=== PATIENT | male | born 1950 | race Caucasian/White ===

== ENCOUNTER 2019-05-08 13:37 | Emergency (ER) | payer OTHER ==
[2019-05-08 14:07] VITALS: BP 128/66; PULSE 83; TEMP 98.6; BMI 24.2
--- NOTE | 2019-05-08 15:18 | PDOC ---
History of Present Illness - General Chief Complaint: G Tube Problem Stated Complaint: G TUBE Time Seen by Provider: 05/08/19 14:28 - History of Present Illness Initial Comments: 05/08/19 15:20 68 years old with past medical history significant for cerebral palsy severe intellectual disabilities Parkinson's disease COPD presents to the emergency department for J G-tube evaluation at care home tube was flushing but unable to withdraw no other complaints per staff Past History - Past Medical History Allergies/Adverse Reactions: Allergies Allergy/AdvReac Type Severity Reaction Status Date / Time No Known Allergies Allergy Verified 05/08/19 14:04 COPD: Yes (resp failure) Other medical history: cerebal palsy, - Psycho Social/Smoking Cessation Hx Smoking History: Unknown if ever smoked Review of Systems - Review of Systems Comments:: 05/08/19 15:21 Unable to obtain review of systems *Physical Exam - Vital Signs Last Vital Signs Temp Pulse Resp BP Pulse Ox 98.6 F 83 13 128/66 98 05/08/19 14:04 05/08/19 14:04 05/08/19 14:23 05/08/19 14:04 05/08/19 14:04 - Physical Exam 05/08/19 15:21 Vitals: Triage Vital signs reviewed General Appearance: No acute distress, well nourished well developed, Cardiac: Regular rate and rhythym, no murmurs, no rubs, no gallops, Lungs: Clear to auscultation bilateral, good air movement bilaterally, Abdomen: Soft, non distended, normal bowel sounds, non tender to palpation G- tube/J-tube in place no surrounding cellulitis able to flush Extremities: Full range of motion to all extremities, no cyanosis, clubbing, or edema Skin: Warm and dry, no rashes or lesions, no rash, no petechiae Psych: Normal mood, normal affect Medical Decision Making - Medical Decision Making 05/08/19 15:22 History limited by severe intellectual disability sent for evaluation of GJ tube We will evaluate with x-ray with Gastrografin observe and reassess Gastrografin in correct location findings discussed with Dr. Thomas will discharge back to the DR Discharge - Discharge Information Problems reviewed: Yes Clinical Impression/Diagnosis: G tube feedings Condition: Fair Disposition: TRANSFER ACUTE CARE/OTHER HOSP - Admission No - Follow up/Referral Referrals: Nicola Gomez MD [Primary Care Provider] - - Patient Discharge Instructions Patient Printed Discharge Instructions: How to Care for Your PEG Tube Additional Instructions: Top tube is G-tube bottom tube and J-tube both are flushing adequately J-tube does require occasional repositioning see x-rays Return to ED for any concerns. - Post Discharge Activity
== END 2019-05-08 17:20 | disposition short-term general hospital (02) ==
LOC: JER 13:37
DX: Z43.1 Encounter for attention to gastrostomy (principal); G20 Parkinson's disease; G80.9 Cerebral palsy, unspecified; F79 Unspecified intellectual disabilities; J44.9 Chronic obstructive pulmonary disease, unspecified
CPT/HCPCS: 74018-TC-FY; 99281-25

== ENCOUNTER 2019-05-20 03:31 | Inpatient (IN) | payer OTHER ==
--- NOTE | 2019-05-20 03:50 | PDOC ---
History of Present Illness - General Chief Complaint: G Tube Problem Stated Complaint: FEEDING TUBE DISPLACEMENT - History of Present Illness Initial Comments: 05/20/19 03:50 Mr. Bernal is a 68 yo male w/ pmh of cerebral palsy, intellectual disabilities, Parkinson's disease, permanent trach, and COPD who presents for evaluation of j-tube dysfunction earlier this evening. Patient unable to contribute to history further. Past History - Past Medical History Allergies/Adverse Reactions: Allergies Allergy/AdvReac Type Severity Reaction Status Date / Time No Known Allergies Allergy Verified 05/20/19 03:42 COPD: Yes (resp failure) - Psycho Social/Smoking Cessation Hx Smoking History: Never smoked Hx Alcohol Use: No Drug/Substance Use Hx: No Review of Systems - Review of Systems Comments:: 05/20/19 03:51 Unable to obtain further. *Physical Exam - Vital Signs Last Vital Signs Temp Pulse Resp BP Pulse Ox 98.1 F 88 18 116/84 98 05/20/19 03:37 05/20/19 03:37 05/20/19 03:41 05/20/19 03:37 05/20/19 03:37 - Physical Exam 05/20/19 03:52 GENERAL: Awake, oriented to baseline, in no acute distress HEAD: No signs of trauma, normocephalic, atraumatic EYES: PERRLA, EOMI, sclera anicteric, conjunctiva clear ENT: Auricles normal inspection, hearing grossly normal, nares patent, oropharynx clear without exudates. Moist mucosa NECK: Normal ROM, supple, no lymphadenopathy, JVD, or masses LUNGS: No distress, speaks full sentences, clear to auscultation bilaterally HEART: Regular rate and rhythm, normal S1 and S2, no murmurs, rubs or gallops, peripheral pulses normal and equal bilaterally. ABDOMEN: +J-tube internal plug out of place. G-tube in place. Soft, nontender, normoactive bowel sounds. No guarding, no rebound. No masses EXTREMITIES: Normal inspection, Normal range of motion, no edema. No clubbing or cyanosis. NEUROLOGICAL: +Unable to assess further. SKIN: Warm, Dry, normal turgor, no rashes or lesions noted. ED Treatment Course - LABORATORY CBC & Chemistry Diagram: 05/20/19 04:15 05/20/19 04:15 Medical Decision Making - Medical Decision Making 05/20/19 04:37 Mr. Bernal is a 68 yo male w/ pmh as described who presents for evaluation of j-tube dysfunction. Patient otherwise in usual state of health. Attempted to contact [place] for additional information regarding presentation however no answer. Patient will be admitted for GI consult as tube has become dislodged and is not easily replaceable in ED. Discharge - Discharge Information Problems reviewed: Yes Clinical Impression/Diagnosis: Dislodged jejunostomy tube Condition: Fair - Admission Yes - Follow up/Referral Referrals: Nicola Gomez MD [Primary Care Provider] - - Patient Discharge Instructions - Post Discharge Activity
--- NOTE | 2019-05-20 03:56 | PDOC ---
Attending Attestation - Resident Resident Name: Marianojose gCesar connell - ED Attending Attestation I have performed the following: I have examined & evaluated the patient, The case was reviewed & discussed with the resident, I agree w/resident's findings & plan - HPI HPI: 05/20/19 03:53 see resident hpi - Physicial Exam PE: 05/20/19 03:53 agree with resident exam - Medical Decision Making 05/20/19 03:55 68-year-old male for evaluation of dislodged G-tube G-tube inner lumen still in place, stopper has been removed Second lumen has drainage to gravity, bag contains bilious material Plan for admission to hospital for evaluation and tube replacement
[2019-05-20 04:52] LABS: EOS % 1.2 % (0-4.5); MONO % 3.6 % (3.8-10.2)
[2019-05-20 04:56] LABS: BASO % 0.9 % (0-2.0); HEMATOCRIT 28.3 % (35.4-49); HEMOGLOBIN 9.4 GM/dL (11.7-16.9); LYMPH % 21.2 % (8-40); MCH 31.2 pg (25.7-33.7); MCHC 33.3 g/dl (32.0-35.9); MEAN CELL VOLUME 93.6 fl (80-96); MEAN PLT VOLUME 8.6 fl (7.5-11.1); NEUT % 73.1 % (42.8-82.8); PLATELET COUNT 372 K/MM3 (134-434); RBC 3.03 M/mm3 (4.00-5.60); RDW 17.1 % (11.9-15.9); WHITE BLOOD COUNT 9.3 K/mm3 (4.0-10.0)
[2019-05-20 05:11] LABS: ALBUMIN 2.5 g/dl (3.4-5.0); BILIRUBIN,TOTAL 0.3 mg/dL (0.2-1); BLOOD UREA NITROGEN 28.7 mg/dL (7-18); CALCIUM 9.4 mg/dL (8.5-10.1); CREATININE 1.2 mg/dL (0.55-1.3); POTASSIUM 4.4 mmol/L (3.5-5.1)
[2019-05-20] MEDS ORDERED: DEXTROSE 5%-0.45% SALINE 1,000 ML IV SCH (05:30)
[2019-05-20 05:34] LABS: PLATELET ESTIMATE ADEQUATE
--- NOTE | 2019-05-20 05:38 | HP ---
Admitting History and Physical - Primary Care Physician PCP: Nicola Gomez - Admission Chief Complaint: J- Tube Dislodgement History of Present Illness: This is a 68 [address] from [facility] with a PMHx of Cerebral Palsy, Intellectual Disabilities, Parkinson's Disease, Chronic Respiratory Failure s/p Trach- vent dependent, COPD. Who presents to the ED for evaluation of G-tube dysfunction earlier this evening. Patient has CP, MR unable to contribute to history further. 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, MR) Pulmonary: Yes: COPD, O2 Dependent (trach- vent dependent) - Past Surgical History Additional Past Surgical History: Tracheostomy - Smoking History Smoking history: Never smoked - Alcohol/Substance Use Hx Alcohol Use: No History of Substance Use: reports: None - Social History Usual Living Arrangement: Yes: [facility] ADL: Support Services History of Recent Travel: No Home Medications - Allergies Allergies/Adverse Reactions: Allergies Allergy/AdvReac Type Severity Reaction Status Date / Time No Known Allergies Allergy Verified 05/20/19 03:42 - Home Medications Home Medications: Ambulatory Orders Acetaminophen 650 mg GT Q6H 05/20/19 Budesonide [Pulmicort 0.25 mg -] 1 neb IH BID 05/20/19 Ciclopirox/Urea/Camph/Men/Euc [Ciclopirox 8% Treatment Kit] 34.6 ml TP Q12H 09/01 Cinacalcet HCl [Sensipar -] 60 mg GT DAILY 05/20/19 Clorazepate Dipotassium 3.75 mg GT HS 05/20/19 Dextrose 5 % in Water [Dextrose 5%-Water 50 ml] 50 ml IV DAILY 05/20/19 Heparin - 5,000 unit SQ BID 05/20/19 Ipratropium/Albuterol Sulfate [Iprat-Albut 0.5-3(2.5) mg/3 ml] 3 ml IH QID 05/20 Lamotrigine [Lamictal -] 50 mg GT BID 05/20/19 Metoprolol Tartrate [Lopressor -] 25 mg GT BID 05/20/19 Omeprazole Pediatric Solution [Omeprazole Pediatric Oral Solution] 20 ml GT DAILY 05/20/19 Prednisone 10 mg GT DAILY 02/05/20 Sod Phos Di, [place]/K Phos [place] [Phospha 250 Neutral Tablet] 250 mg GT BID Family Medical History Family History: Unable to Obtain Review of Systems Unable to obtain ROS, reason: Clinical Condition Physical Examination Vital Signs: Vital Signs Temperature 98.1 F 05/20/19 03:37 Pulse Rate 88 05/20/19 03:37 Respiratory Rate 18 05/20/19 03:41 Blood Pressure 116/84 05/20/19 03:37 O2 Sat by Pulse Oximetry (%) 98 05/20/19 03:37 Constitutional: Yes: No Distress, Calm Eyes: Yes: Conjunctiva Clear, PERRL HENT: Yes: Other (Macrocephaly Cauliflower deformities- b/l ears) Neck: Yes: Supple, Other (trach- vent) Cardiovascular: Yes: Regular Rate and Rhythm, S1, S2 Respiratory: Yes: Diminished, Other (trach-vent dependent) Gastrointestinal: Yes: Soft, Other (J-tube noted DSD to abd) ...Rectal Exam: Yes: Deferred Renal/: Yes: Incontinence Breast(s): Yes: WNL Musculoskeletal: Yes: WNL Extremities: Yes: Other (contractures b/l LE) Edema: No Peripheral Pulses WNL: Yes Wound/Incision: Yes: Dressing Dry and Intact Neurological: Yes: Alert (non-verbal- baseline), Pre-Existing Deficit Psychiatric: Yes: Alert Labs: CBC, BMP 05/20/19 04:15 05/20/19 04:15 Laboratory Results - last 24 hr 05/20/19 05/20/19 04:15 04:15 WBC 9.3 RBC 3.03 L Hgb 9.4 L Hct 28.3 L MCV 93.6 MCH 31.2 MCHC 33.3 RDW 17.1 H Plt Count 372 MPV 8.6 Absolute Neuts (auto) 6.8 Total Counted 100 Neutrophils % 73.1 Neutrophils % (Manual) 84.0 H Band Neutrophils % 3.0 Lymphocytes % 21.2 Lymphocytes % (Manual) 9.0 Monocytes % 3.6 L Monocytes % (Manual) 3 L Eosinophils % 1.2 Eosinophils % (Manual) 1.0 Basophils % 0.9 Nucleated RBC % 0 Hypochromia 1+ Platelet Estimate Adequate Platelet Comment No clumping noted Sodium 134 L Potassium 4.4 Chloride 101 Carbon Dioxide 29 Anion Gap 4 L BUN 28.7 H Creatinine 1.2 Est GFR (CKD-EPI)AfAm 71.58 Est GFR (CKD-EPI)NonAf 61.76 Random Glucose 83 Calcium 9.4 Total Bilirubin 0.3 AST 26 ALT 44 Alkaline Phosphatase 109 Total Protein 7.0 Albumin 2.5 L Intake & Output 05/17/19 05/18/19 05/19/19 05/20/19 23:59 23:59 23:59 23:59 Output Total 200 Balance -200 Weight 51.8 kg Imaging - Results Chest X-ray: Image Reviewed Problem List - Problems (1) Dislodged gastrostomy tube Assessment/Plan: Appreciate GI consult IVF Monitor CBC, BMP DSD Code(s): Z43.1 - ENCOUNTER FOR ATTENTION TO GASTROSTOMY (2) Jejunostomy tube in situ Assessment/Plan: Assess to resume feedings and medications Swallow Eval Code(s): Z93.4 - OTHER ARTIFICIAL OPENINGS OF GASTROINTESTINAL TRACT STATUS (3) Chronic respiratory failure Assessment/Plan: s/p trach- vent dependent Continue vent settings from [place] Aspiration Precautions Monitor vitals Code(s): J96.10 - CHRONIC RESPIRATORY FAILURE, UNSP W HYPOXIA OR HYPERCAPNIA (4) COPD (chronic obstructive pulmonary disease) Assessment/Plan: trach-vent dependent Appreciate Pulm consult Continue home meds Monitor Spo2 Code(s): J44.9 - CHRONIC OBSTRUCTIVE PULMONARY DISEASE, UNSPECIFIED (5) Cerebral palsy Assessment/Plan: Will continue to monitor and treat with interventions accordingly Fall Precautions Code(s): G80.9 - CEREBRAL PALSY, UNSPECIFIED (6) Parkinson disease Assessment/Plan: stable Continue home meds when verified- J tube Code(s): G20 - PARKINSON'S DISEASE (7) Functional quadriplegia Assessment/Plan: Complete immobility due to frailty- cerebral palsy Requires total care Turn Q2h Mack lift as needed Heel Protectors Fall Precautions Code(s): R53.2 - FUNCTIONAL QUADRIPLEGIA Assessment/Plan This is a 68 y/o man from [facility] with a PMHx of Cerebral Palsy, Intellectual Disability, COPD, Chronic Respiratory Failure s/p trach- vent dependent, Parkinson's. Admitted to Med Surg vent floor for G- Tube Dislodgment, Chronic Respiratory Failure for further evaluation of their emergent condition. Plan: See Problem List FEN D5.45NS@42ml/hr Replete lytes prn NPO DVT ppx SCDs Heparin SQ Dispo: Requires Inpatient Care Visit type - Emergency Visit Emergency Visit: Yes ED Registration Date: 05/20/19 Care time: The patient presented to the Emergency Department on the above date and was hospitalized for further evaluation of their emergent condition. - New Patient This patient is new to me today: Yes Date on this admission: 05/20/19 - Critical Care Critical Care patient: No
--- NOTE | 2019-05-20 08:49 | PN ---
Progress Note, Physician - Current Medication List Current Medications: Active Medications Dextrose/Sodium Chloride (D5-1/2ns -) 1,000 mls @ 42 mls/hr IV ASDIR ELOINA Last Admin: 05/20/19 06:15 Dose: 42 mls/hr - Objective Vital Signs: Vital Signs Temperature 98.1 F 05/20/19 03:37 Pulse Rate 88 05/20/19 03:37 Respiratory Rate 20 05/20/19 07:07 Blood Pressure 116/84 05/20/19 03:37 O2 Sat by Pulse Oximetry (%) 100 05/20/19 04:15 Cardiovascular: Yes: S1, S2 Respiratory: Yes: Regular, CTA Bilaterally Gastrointestinal: Yes: Normal Bowel Sounds, Soft Labs: CBC, BMP 05/20/19 04:15 05/20/19 04:15 Problem List - Problems (1) Jejunostomy tube in situ Assessment/Plan: asses and resume feedings Code(s): Z93.4 - OTHER ARTIFICIAL OPENINGS OF GASTROINTESTINAL TRACT STATUS (2) COPD (chronic obstructive pulmonary disease) Assessment/Plan: nebs Code(s): J44.9 - CHRONIC OBSTRUCTIVE PULMONARY DISEASE, UNSPECIFIED (3) Chronic respiratory failure Assessment/Plan: vent pulm Code(s): J96.10 - CHRONIC RESPIRATORY FAILURE, UNSP W HYPOXIA OR HYPERCAPNIA (4) Dislodged gastrostomy tube Assessment/Plan: replace and continue suctioning Code(s): Z43.1 - ENCOUNTER FOR ATTENTION TO GASTROSTOMY (5) Functional quadriplegia Code(s): R53.2 - FUNCTIONAL QUADRIPLEGIA (6) Parkinson disease Code(s): G20 - PARKINSON'S DISEASE
[2019-05-20] MEDS ORDERED: [UNRECOGNIZED DRUG - OTHER] GT SCH (10:00)
[2019-05-20] MEDS ORDERED: lamoTRIgine 25 MG TABLET ONE (10:27)
[2019-05-20] MEDS ORDERED: METOPROLOL TARTRATE 25 MG TABLET (FP) ONE (10:27)
[2019-05-20] MEDS ORDERED: predniSONE 10 MG TABLET (UD) ONE (10:27)
[2019-05-20] MEDS ORDERED: HEPARIN NA (PORCINE) 5,000 UNITS/ML 1ML VIAL ONE (10:27)
[2019-05-20] MEDS: predniSONE 10 MG TABLET (UD) GT SCH (10:36)
[2019-05-20] MEDS: lamoTRIgine 25 MG TABLET PO SCH ×2 (10:37→23:17)
[2019-05-20] MEDS: HEPARIN NA (PORCINE) 5,000 UNITS/ML 1ML VIAL SQ SCH ×2 (10:37→22:00)
[2019-05-20] MEDS: CINACALCET HCL 30 MG TAB (FP) PO SCH (10:37)
[2019-05-20] MEDS: METOPROLOL TARTRATE 25 MG TABLET (FP) GT SCH ×2 (10:37→23:16)
--- NOTE | 2019-05-20 11:15 | CONSULT ---
Admitting History and Physical - Primary Care Physician PCP: Mindy Badillo - Admission History of Present Illness: Per EMR- 68 yo male from [facility] with a PMHx of Cerebral Palsy, Intellectual Disabilities, Parkinson's Disease, Chronic Respiratory Failure s/p Trach- vent dependent, COPD. Who presents to the ED for evaluation of G-tube dysfunction earlier this evening. Per [facility] order- J tube for feedings and medication and G tube drainage for decompression only. Pt on ventilator. Pt on speech/swallowing tx at [facility]. MBS ordered. 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 (CP, MR) Pulmonary: Yes: COPD, O2 Dependent (trach- vent dependent) - Past Surgical History Additional Past Surgical History: Tracheostomy - Smoking History Smoking history: Never smoked - Alcohol/Substance Use Hx Alcohol Use: No History of Substance Use: reports: None - Social History ADL: Support Services History of Recent Travel: No History - Admission Reason For Visit: DISLODGED JEJUNOSTOMY TUBE - Diagnostics X-ray: Report Reviewed - General Mental Status: Awake and Alert Speech Evaluation - Communication Communication: Yes: Non-Communicable - Swallow Evaluation/Bedside Assessment Current Nutritional Intake: NPO, G Tube Recommendations - Speech Evaluation, Impression/Plan Impression: Chart reviewed and pt examined. 68 yo pt with CP,MR on ventilator, with JT for feeding and GT for decompression. Seen in ED. Follows no commands. Eyes open. - Disposition Discharge to: Assisted Facility - Dysphagia Impressions/Plan Dysphagia Impressions: Ongoing Evaluation (suspect impaired swallowing with aspiration risk.) Recommendations: Modified Barium Swallow (ordered/defer), Other (MBS ordered- Defer at this time. Pt in ED, has GT. To discuss case with PMD regarding pt's risk/potential for PO intake.)
--- NOTE | 2019-05-20 11:36 | EKG ---
Test Reason : Blood Pressure : / mmHG Vent. Rate : 071 BPM Atrial Rate : 071 BPM P-R Int : 172 ms QRS Dur : 080 ms QT Int : 404 ms P-R-T Axes : 039 043 042 degrees QTc Int : 439 ms NORMAL SINUS RHYTHM NORMAL ECG NO PREVIOUS ECGS AVAILABLE Confirmed by Van Levin MD ([id number]) on 05/20/2019 11:36:01 AM Referred By: Confirmed By:Van Levin MD
[2019-05-20] MEDS: ALBUTEROL SO4 2.5/IPRATROPIUM 0.5 INH SOL 3 ML VIAL.NEB. NEB SCH ×3 (12:35→21:25)
--- NOTE | 2019-05-20 12:57 | CONSULT ---
Consult - text type - Consultation Consultation Note: Renal consult for hyponatremia and azotemia This is a 68 year old Gentleman with history of Cerebral palsy, parkinsson's disease, COPD, Chronic respiratory failure on vent via trach who presented from [place] with feeding tube dysfunction and noted to have Na of 134 and azotemia. Pt seen and examined in the ER. Is awake on the vent. Not able to talk. PMhx: as above Allergies: NKDA Family Hx: NC Social Hx: No T/A/D ROS: as per HPI, all other pertinent ros negative Home Medications Medication Instructions Recorded Acetaminophen 650 mg GT Q6H 05/20/19 Budesonide [Pulmicort 0.25 mg -] 1 neb IH BID 05/20/19 Ciclopirox/Urea/Camph/Men/Euc 34.6 ml TP Q12H 05/20/19 [Ciclopirox 8% Treatment Kit] Cinacalcet HCl [Sensipar -] 60 mg GT DAILY 05/20/19 Clorazepate Dipotassium 3.75 mg GT HS 05/20/19 Dextrose 5 % in Water [Dextrose 50 ml IV DAILY 05/20/19 5%-Water 50 ml] Heparin - 5,000 unit SQ BID 05/20/19 Ipratropium/Albuterol Sulfate 3 ml IH QID 05/20/19 [Iprat-Albut 0.5-3(2.5) mg/3 ml] Lamotrigine [Lamictal -] 50 mg GT BID 05/20/19 Metoprolol Tartrate [Lopressor -] 25 mg GT BID 05/20/19 Omeprazole Pediatric Solution 20 ml GT DAILY 05/20/19 [Omeprazole Pediatric Oral Solution] Prednisone 10 mg GT DAILY 05/20/19 Sod Phos Di, [place]/K Phos [place] 250 mg GT BID 05/20/19 [Phospha 250 Neutral Tablet] Vital Signs Temperature 98.8 F 05/20/19 07:30 Pulse Rate 68 05/20/19 07:30 Respiratory Rate 20 05/20/19 07:30 Blood Pressure 125/67 05/20/19 07:30 O2 Sat by Pulse Oximetry (%) 100 05/20/19 07:30 Intake & Output 05/17/19 05/18/19 05/19/19 05/20/19 23:59 23:59 23:59 23:59 Output Total 200 Balance -200 Weight 51.8 kg NAD awake and alert on vent via trach neck supple, no JVD RRR CTA, no rales or wheeze soft NT/ND, G-tube in place, + abd scar no LE edema, clubbing or cyanosis CBC, BMP 05/20/19 04:15 05/20/19 04:15 Current Medications Albuterol/Ipratropium (Duoneb -) 1 amp NEB RQID [facility] Last Admin: 05/20/19 12:35 Dose: 1 amp Budesonide (Pulmicort 0.25 Mg Nebulizer -) 1 amp NEB RBID [facility] Cinacalcet (Sensipar -) 60 mg PO DAILY [facility] Last Admin: 05/20/19 10:37 Dose: 60 mg Famotidine (Pepcid) 20 mg PO BID [facility] Heparin Sodium (Porcine) (Heparin -) 5,000 unit SQ BID [facility] Last Admin: 05/20/19 10:37 Dose: 5,000 unit Dextrose/Sodium Chloride (D5-1/2ns -) 1,000 mls @ 42 mls/hr IV ASDIR [facility] Last Admin: 05/20/19 06:15 Dose: 42 mls/hr Lamotrigine (Lamictal -) 50 mg PO BID [facility] Last Admin: 05/20/19 10:37 Dose: 50 mg Metoprolol Tartrate (Lopressor -) 25 mg GT BID [facility] Last Admin: 05/20/19 10:37 Dose: 25 mg Non-Formulary Medication (Clorazepate Dipotassium [Clorazepate Dipotassium]) 3.75 mg GT HS [facility] Non-Formulary Medication (Sod Phos Di, [place]/K Phos [place] [Phospha 250 Neutral Tablet]) 250 mg GT BID [facility] Prednisone (Deltasone -) 10 mg GT DAILY [facility] Last Admin: 05/20/19 10:36 Dose: 10 mg 68 year old Gentleman with history of Cerebral palsy, parkinsson's disease, COPD , Chronic respiratory failure on vent via trach who presented from [place] with feeding tube dysfunction and noted to have Na of 134 and azotemia 1. Hyponatremia (likey hypovolemic hyponatremia) 2. Azotemia from volume depletion vs. steroid induced azotemia 3. Feeding tube dysfunction 4. Respiratory failure on vent 5. Anemia Check urine studies for Na and OSM Give trial of NS x 12 hours Trend na daily, no acute indication for 3% saline Trend BUN/Cr with IVF continue steroids as ordered Consider iron infusion for anemia check stool occult blood Continue Vent support Thank you Mat Julian DO
[2019-05-20] MEDS: DEXTROSE 5%-NORMAL SALINE 1,000 ML IV SCH (13:10)
--- NOTE | 2019-05-20 14:48 | CON.PULM ---
Consult Consult Specialty:: PULMONARY Referred by:: Dr Melendez Reason for Consultation:: respiratory failure - History of Present Illness Chief Complaint: nonfunctioning G-tube History of Present Illness: 68yo male with h/o cerebral palsy, mental retardation, COPD, Parkinsons, chronic respiratory failure s/p trach who was transferred from the longterm for non-functioning G-tube. No fevers recorded. Vented on volume assist control with 40% FiO2. CXR without acute findings. Pt unable to provide further history at this time. 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, Other (CP, MR) Pulmonary: Yes: COPD, O2 Dependent (trach- vent dependent) - Alcohol/Substance Use Hx Alcohol Use: No History of Substance Use: reports: None - Smoking History Smoking history: Never smoked - Social History ADL: Support Services History of Recent Travel: No Home Medications - Allergies Allergies/Adverse Reactions: Allergies Allergy/AdvReac Type Severity Reaction Status Date / Time No Known Allergies Allergy Verified 05/20/19 03:42 - Home Medications Home Medications: Ambulatory Orders Acetaminophen 650 mg GT Q6H 05/20/19 Budesonide [Pulmicort 0.25 mg -] 1 neb IH BID 05/20/19 Ciclopirox/Urea/Camph/Men/Euc [Ciclopirox 8% Treatment Kit] 34.6 ml TP Q12H 09/01 Cinacalcet HCl [Sensipar -] 60 mg GT DAILY 05/20/19 Clorazepate Dipotassium 3.75 mg GT HS 05/20/19 Dextrose 5 % in Water [Dextrose 5%-Water 50 ml] 50 ml IV DAILY 05/20/19 Heparin - 5,000 unit SQ BID 05/20/19 Ipratropium/Albuterol Sulfate [Iprat-Albut 0.5-3(2.5) mg/3 ml] 3 ml IH QID 05/20 Lamotrigine [Lamictal -] 50 mg GT BID 05/20/19 Metoprolol Tartrate [Lopressor -] 25 mg GT BID 05/20/19 Omeprazole Pediatric Solution [Omeprazole Pediatric Oral Solution] 20 ml GT DAILY 05/20/19 Prednisone 10 mg GT DAILY 05/20/19 Sod Phos Di, [place]/K Phos [place] [Phospha 250 Neutral Tablet] 250 mg GT BID Review of Systems Unable to obtain ROS, reason: pt nonverbal Physical Exam Vital Sings: Vital Signs Temperature 98.8 F 05/20/19 07:30 Pulse Rate 68 05/20/19 07:30 Respiratory Rate 14 05/20/19 11:30 Blood Pressure 125/67 05/20/19 07:30 O2 Sat by Pulse Oximetry (%) 100 05/20/19 07:30 Constitutional: Yes: Calm, Other (vented) Eyes: Yes: Conjunctiva Clear, EOM Intact HENT: Yes: Atraumatic, Normocephalic Neck: Yes: Supple, Trachea Midline Cardiovascular: Yes: Regular Rate and Rhythm Respiratory: Yes: Diminished (decreased breath sounds at the bases) ...Clubbing: No Gastrointestinal: Yes: Normal Bowel Sounds, Soft. No: Tenderness Edema: No Labs: CBC, BMP 05/20/19 04:15 05/20/19 04:15 Imaging - Results Chest X-ray: Report Reviewed, Image Reviewed (no infiltrates) Assessment/Plan Nonfunctioning G-tube Chronic Respiratory Failure COPD Cerebral Palsy Mental Retardation Parkinsons Disease - continue current vent settings - poor candidate for weaning at this time - inhaled bronchodilators as needed - DVT/GI prophylaxis Thank you for this consult Byron Gil MD
--- NOTE | 2019-05-20 18:47 | CON.GI ---
Consult Consult Specialty:: GI Referred by:: Hospitalist Service Reason for Consultation:: G-Tube dislodgement - History of Present Illness History of Present Illness: 68 yo male from [facility] with a PMHx of Cerebral Palsy, Intellectual Disabilities, Parkinson's Disease, Chronic Respiratory Failure s/p Trach- vent dependent, COPD. Who presents to the ED for evaluation of G-tube dysfunction. The initial consult apparently was placed in the computer earlier this morning at around 5 AM. The concern regarding his enteral tubes was not directly communicated to GI and consult was called to the office for the first time at 4:55PM this evening. The only helpful description of what tubes he actually had prior was found reviewing [employer]. There are notes from 05/04 describing Mr. Bernal having both a G-Tube and a J-Tube. Currently, he has a closed LUQ stoma (suspect the G-Tube site) and a catheter in a left lower abdominal stoma (suspect the J-Tube site). Presumably called because the G-Tube is no longer in place. The tube no longer in him appeared to be a G-J tube ( kept in a bag at bedside) - Past Medical History LAPPER: Yes: Parkinson's, Other (CP, MR) Pulmonary: Yes: COPD, O2 Dependent (trach- vent dependent) - Past Surgical History Additional Surgical History: G-Tube, J-Tube - Alcohol/Substance Use Hx Alcohol Use: No History of Substance Use: reports: None - Smoking History Smoking history: Never smoked - Social History ADL: Support Services History of Recent Travel: No Home Medications - Allergies Allergies/Adverse Reactions: Allergies Allergy/AdvReac Type Severity Reaction Status Date / Time No Known Allergies Allergy Verified 05/20/19 03:42 - Home Medications Home Medications: Ambulatory Orders Acetaminophen 650 mg GT Q6H 05/20/19 Budesonide [Pulmicort 0.25 mg -] 1 neb IH BID 05/20/19 Ciclopirox/Urea/Camph/Men/Euc [Ciclopirox 8% Treatment Kit] 34.6 ml TP Q12H 09/01 Cinacalcet HCl [Sensipar -] 60 mg GT DAILY 05/20/19 Clorazepate Dipotassium 3.75 mg GT HS 05/20/19 Dextrose 5 % in Water [Dextrose 5%-Water 50 ml] 50 ml IV DAILY 05/20/19 Heparin - 5,000 unit SQ BID 05/20/19 Ipratropium/Albuterol Sulfate [Iprat-Albut 0.5-3(2.5) mg/3 ml] 3 ml IH QID 05/20 Lamotrigine [Lamictal -] 50 mg GT BID 05/20/19 Metoprolol Tartrate [Lopressor -] 25 mg GT BID 05/20/19 Omeprazole Pediatric Solution [Omeprazole Pediatric Oral Solution] 20 ml GT DAILY 05/20/19 Prednisone 10 mg GT DAILY 05/20/19 Sod Phos Di, [place]/K Phos [place] [Phospha 250 Neutral Tablet] 250 mg GT BID Family Medical History Family History: Unable to Obtain Review of Systems Unable to obtain ROS, reason: Unable to obtain Physical Exam-GI Vital Signs: Vital Signs Temperature 98.2 F 05/20/19 16:17 Pulse Rate 80 05/20/19 16:17 Respiratory Rate 17 05/20/19 16:35 Blood Pressure 161/96 05/20/19 16:17 O2 Sat by Pulse Oximetry (%) 100 05/20/19 07:30 Constitutional: Yes: Calm Eyes: No: Sclera Icterus Cardiovascular: Yes: Regular Rate and Rhythm Respiratory: Yes: Diminished (at bases bilaterally) Gastrointestinal Inspection: Yes: Scars (midline vertical surgical scar), Other (closed stoma in LUQ, caudad to this in lower left abdomen is stoma with red catheter in place) ...Auscultate: Yes: Normoactive Bowel Sounds ...Palpate: Yes: Soft. No: Tenderness (No grimacing upon palpation) Edema: No Neurological: Yes: Other (Awake) Labs: CBC, BMP 05/20/19 04:15 05/20/19 04:15 Problem List - Problems (1) Dislodged gastrostomy tube Assessment/Plan: At least from 05/04 Mr. Bernal had two tubes in place a G-Tube and a J tube. If this is clarified through communication with the [facility] and the patient was using both tubes (G-Tube presumably for meds, decompression, J tube for feeds), then would place IR consult to see if G-Tube site can be recanulated and used again and if J-Tube can be replaced is need be (? if current tube noted there was placed temporarily or if that was the existing tube in place) Advise: Confirm what previously existing tubes were being utilized IR consult as noted above Aspiration precautions Code(s): Z43.1 - ENCOUNTER FOR ATTENTION TO GASTROSTOMY
[2019-05-20] MEDS: BUDESONIDE 0.25 MG/2ML INH SUSP VIAL NEB SCH (21:30)
[2019-05-20] MEDS ORDERED: CLORAZEPATE DIPOTASSIUM GT SCH (22:00)
[2019-05-20] MEDS ORDERED: PT OWN MED DRAWER 7, Y5N ONE (23:06)
[2019-05-20] MEDS: FAMOTIDINE 40 MG/5 ML ORAL SUSPENSION PO SCH (23:17)
[2019-05-21] MEDS: DEXTROSE 5%-NORMAL SALINE 1,000 ML IV SCH (02:27)
[2019-05-21] MEDS: BUDESONIDE 0.25 MG/2ML INH SUSP VIAL NEB SCH ×2 (08:00→21:47)
[2019-05-21] MEDS: ALBUTEROL SO4 2.5/IPRATROPIUM 0.5 INH SOL 3 ML VIAL.NEB. NEB SCH ×4 (08:00→21:40)
[2019-05-21 08:26] LABS: BASO % 0.4 % (0-2.0); EOS % 2.1 % (0-4.5); HEMOGLOBIN 8.7 GM/dL (11.7-16.9); LYMPH % 25.7 % (8-40); MCH 32.3 pg (25.7-33.7); MCHC 34.7 g/dl (32.0-35.9); MEAN CELL VOLUME 93.1 fl (80-96); MEAN PLT VOLUME 8.5 fl (7.5-11.1); MONO % 5.9 % (3.8-10.2); NEUT % 65.9 % (42.8-82.8); PLATELET COUNT 358 K/MM3 (134-434); RBC 2.69 M/mm3 (4.00-5.60); RDW 16.9 % (11.9-15.9); WHITE BLOOD COUNT 5.9 K/mm3 (4.0-10.0)
[2019-05-21 08:47] LABS: BLOOD UREA NITROGEN 19.8 mg/dL (7-18); CALCIUM 10.1 mg/dL (8.5-10.1); POTASSIUM 3.9 mmol/L (3.5-5.1)
[2019-05-21 09:16] LABS: ANISOCYTOSIS 1+; MACROCYTOSIS 0; PLATELET ESTIMATE NORMAL
[2019-05-21] MEDS: CINACALCET HCL 30 MG TAB (FP) PO SCH (09:20)
[2019-05-21] MEDS: predniSONE 10 MG TABLET (UD) GT SCH (09:21)
[2019-05-21] MEDS: METOPROLOL TARTRATE 25 MG TABLET (FP) GT SCH ×2 (09:21→23:39)
[2019-05-21] MEDS: HEPARIN NA (PORCINE) 5,000 UNITS/ML 1ML VIAL SQ SCH ×2 (09:25→23:40)
[2019-05-21] MEDS ORDERED: PT OWN MED DRAWER 7, Y5N ONE (09:27)
[2019-05-21] MEDS: lamoTRIgine 25 MG TABLET PO SCH ×2 (09:29→23:37)
[2019-05-21] MEDS: FAMOTIDINE 40 MG/5 ML ORAL SUSPENSION PO SCH ×2 (09:31→23:38)
--- NOTE | 2019-05-21 09:32 | PN ---
Progress Note, Physician - Current Medication List Current Medications: Active Medications Albuterol/Ipratropium (Duoneb -) 1 amp NEB RQID [facility] Last Admin: 05/20/19 21:25 Dose: 1 amp Budesonide (Pulmicort 0.25 Mg Nebulizer -) 1 amp NEB RBID [facility] Last Admin: 05/20/19 21:30 Dose: 1 amp Cinacalcet (Sensipar -) 60 mg PO DAILY [facility] Last Admin: 05/21/19 09:20 Dose: 60 mg Famotidine (Pepcid) 20 mg PO BID [facility] Last Admin: 05/21/19 09:31 Dose: 20 mg Heparin Sodium (Porcine) (Heparin -) 5,000 unit SQ BID [facility] Last Admin: 05/21/19 09:25 Dose: Not Given Dextrose/Sodium Chloride (D5-Ns -) 1,000 mls @ 75 mls/hr IV ASDIR [facility] Stop: 05/21/19 12:59 Last Admin: 05/21/19 02:27 Dose: 75 mls/hr Lamotrigine (Lamictal -) 50 mg PO BID [facility] Last Admin: 05/21/19 09:29 Dose: 50 mg Metoprolol Tartrate (Lopressor -) 25 mg GT BID [facility] Last Admin: 05/21/19 09:21 Dose: Not Given Non-Formulary Medication (Clorazepate Dipotassium [Clorazepate Dipotassium]) 3.75 mg GT HS [facility] Non-Formulary Medication (Sod Phos Di, [place]/K Phos [place] [Phospha 250 Neutral Tablet]) 250 mg GT BID [facility] Prednisone (Deltasone -) 10 mg GT DAILY [facility] Last Admin: 05/21/19 09:21 Dose: 10 mg - Objective Vital Signs: Vital Signs Temperature 97.8 F 05/21/19 05:48 Pulse Rate 52 L 05/21/19 08:45 Respiratory Rate 17 05/21/19 09:00 Blood Pressure 150/70 05/21/19 08:45 O2 Sat by Pulse Oximetry (%) 99 05/20/19 21:00 Cardiovascular: Yes: Bradycardia, S1, S2 Respiratory: Yes: Regular, CTA Bilaterally Gastrointestinal: Yes: Normal Bowel Sounds, Soft Labs: CBC, BMP 05/21/19 07:27 05/21/19 07:27 Problem List - Problems (1) Jejunostomy tube in situ Assessment/Plan: asses and resume feedings Code(s): Z93.4 - OTHER ARTIFICIAL OPENINGS OF GASTROINTESTINAL TRACT STATUS (2) COPD (chronic obstructive pulmonary disease) Assessment/Plan: nebs Code(s): J44.9 - CHRONIC OBSTRUCTIVE PULMONARY DISEASE, UNSPECIFIED (3) Chronic respiratory failure Assessment/Plan: vent pulm Code(s): J96.10 - CHRONIC RESPIRATORY FAILURE, UNSP W HYPOXIA OR HYPERCAPNIA (4) Dislodged gastrostomy tube Assessment/Plan: replace and continue suctioning IR consult Code(s): Z43.1 - ENCOUNTER FOR ATTENTION TO GASTROSTOMY (5) Functional quadriplegia Code(s): R53.2 - FUNCTIONAL QUADRIPLEGIA (6) Parkinson disease Code(s): G20 - PARKINSON'S DISEASE (7) Anemia Assessment/Plan: w/u in progress hem consult Code(s): D64.9 - ANEMIA, UNSPECIFIED (8) Bradycardia Assessment/Plan: ekg hold bb cardio Code(s): R00.1 - BRADYCARDIA, UNSPECIFIED
--- NOTE | 2019-05-21 10:25 | PN ---
Progress Note (short form) - Note Progress Note: NAD on AC Mode of vent, 40% FiO2. No acute events overnight. Pending IR replacement of GT. Intake & Output 05/18/19 05/19/19 05/20/19 05/21/19 23:59 23:59 23:59 23:59 Intake Total 150 825 Output Total 300 Balance -150 825 Weight 121 lb 4 oz Last Vital Signs Temp Pulse Resp BP Pulse Ox 97.8 F 52 L 17 150/70 99 05/21/19 05:48 05/21/19 08:45 05/21/19 09:00 05/21/19 08:45 05/20/19 21:00 Active Medications Albuterol/Ipratropium (Duoneb -) 1 amp NEB RQID [facility] Last Admin: 05/20/19 21:25 Dose: 1 amp Budesonide (Pulmicort 0.25 Mg Nebulizer -) 1 amp NEB RBID [facility] Last Admin: 05/20/19 21:30 Dose: 1 amp Cinacalcet (Sensipar -) 60 mg PO DAILY [facility] Last Admin: 05/21/19 09:20 Dose: 60 mg Famotidine (Pepcid) 20 mg PO BID [facility] Last Admin: 05/21/19 09:31 Dose: 20 mg Heparin Sodium (Porcine) (Heparin -) 5,000 unit SQ BID [facility] Last Admin: 05/21/19 09:25 Dose: Not Given Dextrose/Sodium Chloride (D5-Ns -) 1,000 mls @ 75 mls/hr IV ASDIR [facility] Stop: 05/21/19 12:59 Last Admin: 05/21/19 02:27 Dose: 75 mls/hr Lamotrigine (Lamictal -) 50 mg PO BID [facility] Last Admin: 05/21/19 09:29 Dose: 50 mg Metoprolol Tartrate (Lopressor -) 25 mg GT BID [facility] Last Admin: 05/21/19 09:21 Dose: Not Given Non-Formulary Medication (Clorazepate Dipotassium [Clorazepate Dipotassium]) 3.75 mg GT HS [facility] Non-Formulary Medication (Sod Phos Di, Day/K Phos Day [Phospha 250 Neutral Tablet]) 250 mg GT BID [facility] Prednisone (Deltasone -) 10 mg GT DAILY [facility] Last Admin: 05/21/19 09:21 Dose: 10 mg Constitutional: Yes: NAD, vented Eyes: Yes: Conjunctiva Clear, EOM Intact HENT: Yes: Atraumatic, Normocephalic Neck: Yes: Supple, Trachea Midline Cardiovascular: Yes: Regular Rate and Rhythm Respiratory: Yes: Vented, Diminished breath sounds at the bases ...Clubbing: No Gastrointestinal: Yes: Normal Bowel Sounds, Soft. No: Tenderness Edema: No Labs: Laboratory Results - last 24 hr 05/20/19 05/20/19 05/20/19 11:16 11:28 11:28 WBC RBC Hgb Hct MCV MCH MCHC RDW Plt Count MPV Absolute Neuts (auto) Neutrophils % Neutrophils % (Manual) Band Neutrophils % Lymphocytes % Lymphocytes % (Manual) Monocytes % Monocytes % (Manual) Eosinophils % Eosinophils % (Manual) Basophils % Basophils % (Manual) Myelocytes % (Man) Promyelocytes % (Man) Blast Cells % (Manual) Nucleated RBC % Metamyelocytes Hypochromia Platelet Estimate Platelet Comment Polychromasia Poikilocytosis Anisocytosis Microcytosis Macrocytosis Spherocytes Ca Cells Acanthocytes (Spur) Fragmented RBCs Sodium Potassium Chloride Carbon Dioxide Anion Gap BUN Creatinine Est GFR (CKD-EPI)AfAm Est GFR (CKD-EPI)NonAf Random Glucose Serum Osmolality 289 Calcium Iron 33 L TIBC 239 L Iron Saturation 13 L Unsaturated IBC 206 Ferritin 74.3 Triglycerides 141 Cholesterol 149 Total LDL Cholesterol 80 HDL Cholesterol 50 Vitamin B12 413 TSH 2.66 Urine Osmolality Ur Random Sodium 05/20/19 05/20/19 05/21/19 22:50 22:50 07:27 WBC 5.9 RBC 2.69 L Hgb 8.7 L Hct 25.0 L MCV 93.1 MCH 32.3 MCHC 34.7 RDW 16.9 H Plt Count 358 MPV 8.5 Absolute Neuts (auto) 3.9 Neutrophils % 65.9 Neutrophils % (Manual) 52.1 D Band Neutrophils % 0.0 Lymphocytes % 25.7 D Lymphocytes % (Manual) 30.2 D Monocytes % 5.9 Monocytes % (Manual) 8 D Eosinophils % 2.1 Eosinophils % (Manual) 4.2 D Basophils % 0.4 Basophils % (Manual) 0.0 Myelocytes % (Man) 2 Promyelocytes % (Man) 0 Blast Cells % (Manual) 0 Nucleated RBC % 0 Metamyelocytes 0 Hypochromia 0 Platelet Estimate Normal Platelet Comment Present Polychromasia 0 Poikilocytosis 1+ Anisocytosis 1+ Microcytosis 1+ Macrocytosis 0 Spherocytes 1+ [place] Cells 1+ Acanthocytes (Spur) 1+ Fragmented RBCs 1+ Sodium Potassium Chloride Carbon Dioxide Anion Gap BUN Creatinine Est GFR (CKD-EPI)AfAm Est GFR (CKD-EPI)NonAf Random Glucose Serum Osmolality Calcium Iron TIBC Iron Saturation Unsaturated IBC Ferritin Triglycerides Cholesterol Total LDL Cholesterol HDL Cholesterol Vitamin B12 TSH Urine Osmolality 351 Ur Random Sodium 75 05/21/19 07:27 WBC RBC Hgb Hct MCV MCH MCHC RDW Plt Count MPV Absolute Neuts (auto) Neutrophils % Neutrophils % (Manual) Band Neutrophils % Lymphocytes % Lymphocytes % (Manual) Monocytes % Monocytes % (Manual) Eosinophils % Eosinophils % (Manual) Basophils % Basophils % (Manual) Myelocytes % (Man) Promyelocytes % (Man) Blast Cells % (Manual) Nucleated RBC % Metamyelocytes Hypochromia Platelet Estimate Platelet Comment Polychromasia Poikilocytosis Anisocytosis Microcytosis Macrocytosis Spherocytes Ca Cells Acanthocytes (Spur) Fragmented RBCs Sodium 140 Potassium 3.9 Chloride 109 H Carbon Dioxide 23 Anion Gap 7 L BUN 19.8 H Creatinine 1.0 Est GFR (CKD-EPI)AfAm 89.23 Est GFR (CKD-EPI)NonAf 76.99 Random Glucose 99 Serum Osmolality Calcium 10.1 Iron TIBC Iron Saturation Unsaturated IBC Ferritin Triglycerides Cholesterol Total LDL Cholesterol HDL Cholesterol Vitamin B12 TSH Urine Osmolality Ur Random Sodium Assessment/Plan Nonfunctioning G-tube Chronic Respiratory Failure COPD Cerebral Palsy Mental Retardation Parkinsons Disease - continue current vent settings - poor candidate for weaning at this time - inhaled bronchodilators as needed - DVT/GI prophylaxis - For GT replacement Dr Alexandre
--- NOTE | 2019-05-21 11:45 | CON.CARD ---
Consult Consult Specialty:: Cardiology Referred by:: Nora Reason for Consultation:: bradycardia - History of Present Illness Chief Complaint: g tube loss History of Present Illness: 68yo male with h/o cerebral palsy, mental retardation, COPD, Parkinsons, chronic respiratory failure s/p trach who was transferred from the custodial for non-functioning G-tube. Noted with bradycardia. On metoprolol which has been held. He did not lower his blood pressure at the time. He is unable to give a history. - History Source History Provided By: Medical Record - Past Medical History [employer]: Yes: Parkinson's, Other (CP, MR) Pulmonary: Yes: COPD, O2 Dependent (trach- vent dependent) - Past Surgical History Additional Surgical History: G-Tube, J-Tube - Alcohol/Substance Use Hx Alcohol Use: No History of Substance Use: reports: None - Smoking History Smoking history: Never smoked Have you smoked in the past 12 months: No - Social History ADL: Support Services History of Recent Travel: No Home Medications - Allergies Allergies/Adverse Reactions: Allergies Allergy/AdvReac Type Severity Reaction Status Date / Time No Known Allergies Allergy Verified 05/20/19 03:42 - Home Medications Home Medications: Ambulatory Orders Acetaminophen 650 mg GT Q6H 05/20/19 Budesonide [Pulmicort 0.25 mg -] 1 neb IH BID 05/20/19 Ciclopirox/Urea/Camph/Men/Euc [Ciclopirox 8% Treatment Kit] 34.6 ml TP Q12H 09/01 Cinacalcet HCl [Sensipar -] 60 mg GT DAILY 05/20/19 Clorazepate Dipotassium 3.75 mg GT HS 05/20/19 Dextrose 5 % in Water [Dextrose 5%-Water 50 ml] 50 ml IV DAILY 05/20/19 Heparin - 5,000 unit SQ BID 05/20/19 Ipratropium/Albuterol Sulfate [Iprat-Albut 0.5-3(2.5) mg/3 ml] 3 ml IH QID 05/20 Lamotrigine [Lamictal -] 50 mg GT BID 05/20/19 Metoprolol Tartrate [Lopressor -] 25 mg GT BID 05/20/19 Omeprazole Pediatric Solution [Omeprazole Pediatric Oral Solution] 20 ml GT DAILY 05/20/19 Prednisone 10 mg GT DAILY 05/20/19 Sod Phos Di, [place]/K Phos [place] [Phospha 250 Neutral Tablet] 250 mg GT BID Vital Signs: Vital Signs Temperature 97.8 F 05/21/19 05:48 Pulse Rate 52 L 05/21/19 08:45 Respiratory Rate 17 05/21/19 09:00 Blood Pressure 150/70 05/21/19 08:45 O2 Sat by Pulse Oximetry (%) 99 05/20/19 21:00 Constitutional: Yes: Calm Eyes: Yes: EOM Intact HENT: Yes: Normocephalic Neck: Yes: Trachea Midline Respiratory: Yes: CTA Bilaterally, Mechanically Ventilated Gastrointestinal: Yes: Normal Bowel Sounds Cardiovascular: Yes: Regular Rate and Rhythm JVD: No Carotid Bruit: No PMI: Non-Displaced Heart Sounds: Yes: S1, S2 Edema: No Peripheral Pulses WNL: Yes - Other Data Labs, Other Data: CBC, BMP 05/21/19 07:27 05/21/19 07:27 Imaging - Results Chest X-ray: Report Reviewed EKG: Report Reviewed Assessment/Plan 68yo male with h/o cerebral palsy, mental retardation, COPD, Parkinsons, chronic respiratory failure s/p trach who was transferred from the custodial for non-functioning G-tube. Noted with bradycardia. On metoprolol, now held. BP stable during the event. He is unable to give a history. Bradycardia -brief and self limited. No need for workup at this time. -no need for testing or telemetry. -dc metoprolol. -will see prn.
--- NOTE | 2019-05-21 12:26 | PN ---
Progress Note, CANDY BUTCHER - Note Progress Note: 68 yo male seen at bedside for f/up swallow eval and possible MBS (ordered (08/2019). Pt seen by speech in ED yesterday for swallow consult. CANDY BUTCHER deferred secondary to high risk of aspiration at bedside. Pt presents as A&Ox1 non- verbal, with dx: cp, Parkinson's, with profound ID and trach in place. Pt currently NPO with G and J tube. J-tube is primary source for nutritional support with G-tube for vent purposes. Today PEG replaced. CANDY BUTCHER attempted to complete oral motor examination at bedside without success secondary to inability to follow directives. Informally, pt presents with sub- optimal dentition (only bottom incisors observed. Minimal opening of the mouth at bedside revealed, dried coat secretions on tongue. Minimal movement observed to functionally form a bolus or transfer bolus. CANDY BUTCHER unable to stimulate and cough or swallow with empty spoon. New MBS ordered for today. Recommendation Pt is a HIGH risk for aspiration at this time. CANDY BUTCHER will defer MBS order for today. Continue to offer nutritional support via J-tube. Observe standard aspiration precautions. Results given verbally to zinc furnace charger and to PCP via chart. CANDY BUTCHER to follow up as needed.
--- NOTE | 2019-05-21 14:25 | EKG ---
Test Reason : Blood Pressure : / mmHG Vent. Rate : 063 BPM Atrial Rate : 063 BPM P-R Int : 164 ms QRS Dur : 088 ms QT Int : 426 ms P-R-T Axes : 062 046 043 degrees QTc Int : 435 ms NORMAL SINUS RHYTHM NORMAL ECG WHEN COMPARED WITH ECG OF 20-MAY-2019 04:41, NO SIGNIFICANT CHANGE WAS FOUND Confirmed by GIRISH HUGHES MD ([id number]) on 05/21/2019 2:25:26 PM Referred By: Confirmed By:GIRISH HUGHES MD
--- NOTE | 2019-05-21 14:36 | PN ---
Progress Note (short form) - Note Progress Note: Renal follow up for NOAH and hyponatremia Seen and examined at the bedside on vent via trach s/p G-tube replacement on IVF Vital Signs Temperature 97.8 F 05/21/19 05:48 Pulse Rate 52 L 05/21/19 08:45 Respiratory Rate 17 05/21/19 09:00 Blood Pressure 150/70 05/21/19 08:45 O2 Sat by Pulse Oximetry (%) 99 05/21/19 09:00 Intake & Output 05/18/19 05/19/19 05/20/19 05/21/19 23:59 23:59 23:59 23:59 Intake Total 150 825 Output Total 300 Balance -150 825 Weight 54.998 kg NAD awake and alert on vent via trach neck supple, no JVD RRR CTA, no rales or wheeze soft NT/ND, G-tube in place, + abd scar no LE edema CBC, BMP 05/21/19 07:27 05/21/19 07:27 Current Medications Albuterol/Ipratropium (Duoneb -) 1 amp NEB RQID [facility] Last Admin: 05/21/19 08:00 Dose: 1 amp Budesonide (Pulmicort 0.25 Mg Nebulizer -) 1 amp NEB RBID [facility] Last Admin: 05/21/19 08:00 Dose: 1 amp Cinacalcet (Sensipar -) 60 mg PO DAILY [facility] Last Admin: 05/21/19 09:20 Dose: 60 mg Famotidine (Pepcid) 20 mg PO BID [facility] Last Admin: 05/21/19 09:31 Dose: 20 mg Heparin Sodium (Porcine) (Heparin -) 5,000 unit SQ BID [facility] Last Admin: 05/21/19 09:25 Dose: Not Given Lamotrigine (Lamictal -) 50 mg PO BID [facility] Last Admin: 05/21/19 09:29 Dose: 50 mg Metoprolol Tartrate (Lopressor -) 25 mg GT BID [facility] Last Admin: 05/21/19 09:21 Dose: Not Given Non-Formulary Medication (Clorazepate Dipotassium [Clorazepate Dipotassium]) 3.75 mg GT HS [facility] Non-Formulary Medication (Sod Phos Di, [place]/K Phos [place] [Phospha 250 Neutral Tablet]) 250 mg GT BID [facility] Prednisone (Deltasone -) 10 mg GT DAILY [facility] Last Admin: 05/21/19 09:21 Dose: 10 mg 68 year old Gentleman with history of Cerebral palsy, parkinsson's disease, COPD , Chronic respiratory failure on vent via trach who presented from [place] with feeding tube dysfunction and noted to have Na of 134 and azotemia 1. Hyponatremia (likey hypovolemic hyponatremia) 2. Azotemia from volume depletion vs. steroid induced azotemia 3. Feeding tube dysfunction 4. Respiratory failure on vent 5. Anemia Renal function and hyponatremia improved Can continue isotnoic saline until pt and be fed via feeding tube continue steroids as ordered Consider iron infusion for anemia Continue Vent support No further diagnostic work up needed in regards to renal function will follow up as needed Thank you Mat Julian DO
[2019-05-21] MEDS: SODIUM CHLORIDE 1,000 ML IV SCH ×2 (15:00→23:42)
[2019-05-21] MEDS ORDERED: IRON SUCROSE INJECTION 200 MG in SODIUM CHLORIDE 90 ML IVPB ONE (15:03)
[2019-05-21 16:49] VITALS: BMI 22.1
--- NOTE | 2019-05-21 17:17 | CONSULT ---
Consultation: REQUESTING PROVIDER: CONSULT REQUEST: We have been asked to medically evaluate this patient for ( specify). HISTORY OF PRESENT ILLNESS: 68yo M from [facility] with PMHx CP, Parkinson's Disease, Chronic respiratory failure s/p trach, COPD who originally presented due to G-tube. We were asked to medically evaluate this patient due to anemia. Pt already had iron studies performed at this time. HPI limited due to patient's chronic medical conditions. Pt does not look in distress at this time. REVIEW OF SYSTEMS: HPI limited due to chronic medical conditions PHYSICAL EXAMINATION Vital Signs - 24 hr 05/20/19 05/20/19 05/20/19 18:00 18:30 19:26 Temperature 98.2 F Pulse Rate 86 Respiratory 14 18 Rate Blood Pressure 149/85 O2 Sat by Pulse 97 97 Oximetry (%) 05/20/19 05/20/19 05/20/19 21:00 21:15 22:00 Temperature Pulse Rate 82 Respiratory 18 12 18 Rate Blood Pressure 143/82 O2 Sat by Pulse 99 Oximetry (%) 05/21/19 05/21/19 05/21/19 00:48 04:24 05:48 Temperature 97.8 F Pulse Rate 72 Respiratory 12 12 18 Rate Blood Pressure 118/58 L O2 Sat by Pulse Oximetry (%) 05/21/19 05/21/19 05/21/19 08:45 09:00 12:25 Temperature Pulse Rate 52 L Respiratory 14 17 12 Rate Blood Pressure 150/70 O2 Sat by Pulse 99 Oximetry (%) 05/21/19 05/21/19 14:00 16:00 Temperature 98.2 F Pulse Rate 69 Respiratory 14 12 Rate Blood Pressure 157/89 O2 Sat by Pulse Oximetry (%) GENERAL: Awake, alert, in no acute distress. HEENT: NC/AT, EOMI, MACK, sclera anicteric, MMM NECK: No JVD, or masses. LUNGS: Diminished breath sounds at the bases bilaterally. No wheezes, and no crackles. Tracheostomy site C/D/I HEART: RRR, normal S1 and S2 without murmur ABDOMEN: Soft, midline vertical scar noted, LUQ old tube insertion site?, left mid-loser area with J-tube? and stoma, no grimmacing with palpation, nondistended EXTREMITIES: 2+ pulses, warm, well-perfused. No grimmacing with calf palpation. No peripheral edema. SKIN: Warm, dry, no rashes. Laboratory Results - last 24 hr 05/20/19 05/20/19 05/20/19 11:16 22:50 22:50 WBC RBC Hgb Hct MCV MCH MCHC RDW Plt Count MPV Absolute Neuts (auto) Neutrophils % Neutrophils % (Manual) Band Neutrophils % Lymphocytes % Lymphocytes % (Manual) Monocytes % Monocytes % (Manual) Eosinophils % Eosinophils % (Manual) Basophils % Basophils % (Manual) Myelocytes % (Man) Promyelocytes % (Man) Blast Cells % (Manual) Nucleated RBC % Metamyelocytes Hypochromia Platelet Estimate Platelet Comment Polychromasia Poikilocytosis Anisocytosis Microcytosis Macrocytosis Spherocytes Ca Cells Acanthocytes (Spur) Fragmented RBCs Sodium Potassium Chloride Carbon Dioxide Anion Gap BUN Creatinine Est GFR (CKD-EPI)AfAm Est GFR (CKD-EPI)NonAf Random Glucose Serum Osmolality 289 Calcium Urine Osmolality 351 Ur Random Sodium 75 05/21/19 05/21/19 07:27 07:27 WBC 5.9 RBC 2.69 L Hgb 8.7 L Hct 25.0 L MCV 93.1 MCH 32.3 MCHC 34.7 RDW 16.9 H Plt Count 358 MPV 8.5 Absolute Neuts (auto) 3.9 Neutrophils % 65.9 Neutrophils % (Manual) 52.1 D Band Neutrophils % 0.0 Lymphocytes % 25.7 D Lymphocytes % (Manual) 30.2 D Monocytes % 5.9 Monocytes % (Manual) 8 D Eosinophils % 2.1 Eosinophils % (Manual) 4.2 D Basophils % 0.4 Basophils % (Manual) 0.0 Myelocytes % (Man) 2 Promyelocytes % (Man) 0 Blast Cells % (Manual) 0 Nucleated RBC % 0 Metamyelocytes 0 Hypochromia 0 Platelet Estimate Normal Platelet Comment Present Polychromasia 0 Poikilocytosis 1+ Anisocytosis 1+ Microcytosis 1+ Macrocytosis 0 Spherocytes 1+ Ca Cells 1+ Acanthocytes (Spur) 1+ Fragmented RBCs 1+ Sodium 140 Potassium 3.9 Chloride 109 H Carbon Dioxide 23 Anion Gap 7 L BUN 19.8 H Creatinine 1.0 Est GFR (CKD-EPI)AfAm 89.23 Est GFR (CKD-EPI)NonAf 76.99 Random Glucose 99 Serum Osmolality Calcium 10.1 Urine Osmolality Ur Random Sodium Active Medications Generic Name Dose Route Start Last Admin Trade Name Freq PRN Reason Stop Dose Admin Albuterol/Ipratropium 1 amp 05/20/19 12:00 05/21/19 16:58 Duoneb - NEB 1 amp RQID ELOINA Administration Budesonide 1 amp 05/20/19 20:00 05/21/19 08:00 Pulmicort 0.25 Mg Nebulizer - NEB 1 amp RBID ELOINA Administration Cinacalcet 60 mg 05/20/19 10:00 05/21/19 09:20 Sensipar - PO 60 mg DAILY ELOINA Administration Famotidine 20 mg 05/20/19 22:00 05/21/19 09:31 Pepcid PO 20 mg BID ELOINA Administration Heparin Sodium (Porcine) 5,000 unit 05/20/19 10:00 05/21/19 09:25 Heparin - SQ Not Given BID ELOINA Sodium Chloride 1,000 mls @ 60 mls/hr 05/21/19 14:45 Normal Saline - IV ASDIR ELOINA Lamotrigine 50 mg 05/20/19 10:00 05/21/19 09:29 Lamictal - PO 50 mg BID ELOINA Administration Metoprolol Tartrate 25 mg 05/20/19 10:00 05/21/19 09:21 Lopressor - GT Not Given BID ELOINA Non-Formulary Medication 3.75 mg 05/20/19 22:00 Clorazepate Dipotassium [Clorazepate Dipotassium] GT HS ELOINA Non-Formulary Medication 250 mg 05/20/19 10:00 Sod Phos Di, [place]/K Phos [place] [Phospha 250 Neutral Tablet] GT BID ELOINA Prednisone 10 mg 05/20/19 10:00 05/21/19 09:21 Deltasone - GT 10 mg DAILY ELOINA Administration ASSESSMENT/PLAN: Anemia of chronic disease G-tube dysfunction Chronic tracheostomy Cerebral Palsy --Given iron studies highly suspicious for anemia of chronic disease --Transfusion threshold >7gm --Monitor CBC however no active signs of bleeding at this time Case to be discussed Alfred Ryder, DO - IM PGY-3 Dispo: We will continue to follow the patient. Thank you for this consultative opportunity. Visit type - Emergency Visit Emergency Visit: Yes ED Registration Date: 05/20/19 Care time: The patient presented to the Emergency Department on the above date and was hospitalized for further evaluation of their emergent condition. - New Patient This patient is new to me today: No - Critical Care Critical Care patient: No ATTENDING PHYSICIAN STATEMENT I saw and evaluated the patient. I reviewed the resident's note and discussed the case with the resident. I agree with the resident's findings and plan as documented. SUBJECTIVE: OBJECTIVE: ASSESSMENT AND PLAN:
--- NOTE | 2019-05-21 18:28 | PN ---
Teaching Attending Note Name of Resident: Alfred Ryder ATTENDING PHYSICIAN STATEMENT I saw and evaluated the patient. I reviewed the resident's note and discussed the case with the resident. I agree with the resident's findings and plan as documented. SUBJECTIVE: No complaints OBJECTIVE: Last Vital Signs Temp Pulse Resp BP Pulse Ox 98.2 F 69 12 157/89 99 05/21/19 14:00 05/21/19 14:00 05/21/19 16:00 05/21/19 14:00 05/21/19 09:00 General: NAD HEENT: MMM CVS: S1, S2 Abdomen: G-Tube Ext: No edema CBC, BMP 05/21/19 07:27 05/21/19 07:27 Laboratory Tests 05/20/19 11:28 Iron 33 L TIBC 239 L Iron Saturation 13 L Ferritin 74. TSAT: 13.8% ASSESSMENT AND PLAN: 68 y/o M from [facility] with PMHx CP, Parkinson's Disease, Chronic respiratory failure s/p trach, COPD who originally presented due to G-tube. We were asked to medically evaluate this patient due to anemia. Pt already had iron studies performed at this time. HPI limited due to patient's chronic medical conditions. Pt does not look in distress at this time. Plan: 1) Given low TSAT patient can benefit from IV Iron Supplementation. Consider otis Sucrose per pharmacy protocol 2) Hb > 7 3) Agree with Dr. Ryder's note follow his recommendations
--- NOTE | 2019-05-21 20:19 | PN.GI ---
GI Progress Note Subjective: coverage for Dr Woody patient had g tube inserted by IR - Objective Vital Signs: Vital Signs Temperature 97.9 F 05/21/19 18:06 Pulse Rate 68 05/21/19 18:06 Respiratory Rate 16 05/21/19 18:06 Blood Pressure 142/84 05/21/19 18:06 O2 Sat by Pulse Oximetry (%) 99 05/21/19 09:00 Constitutional: Well Nourished Eyes: Yes: Conjunctiva Clear HENT: Yes: Atraumatic Neck: Yes: Supple Cardiovascular: Yes: Regular Rate and Rhythm ...Palpate: Yes: Soft, Tenderness, Other (g-tube in place). No: Firm/Rigid, Guarding, Hepatomegaly, Mass, Pulsatile Mass, Splenomegaly Labs: CBC, BMP 05/21/19 07:27 05/21/19 07:27 Problem List - Problems (1) Gastrointestinal tube present Assessment/Plan: place to decompress the stomach R> hang to gravity start jejunostomy tube feeds Code(s): Z93.1 - GASTROSTOMY STATUS
[2019-05-22 06:21] VITALS: TEMP 97.7
[2019-05-22 08:32] LABS: BASO % 0.3 % (0-2.0); EOS % 1.4 % (0-4.5); HEMATOCRIT 26.9 % (35.4-49); HEMOGLOBIN 9.3 GM/dL (11.7-16.9); LYMPH % 22.8 % (8-40); MCH 32.6 pg (25.7-33.7); MCHC 34.5 g/dl (32.0-35.9); MEAN CELL VOLUME 94.5 fl (80-96); MEAN PLT VOLUME 8.7 fl (7.5-11.1); MONO % 7.3 % (3.8-10.2); NEUT % 68.2 % (42.8-82.8); PLATELET COUNT 407 K/MM3 (134-434); RBC 2.85 M/mm3 (4.00-5.60); RDW 16.8 % (11.9-15.9); WHITE BLOOD COUNT 7.3 K/mm3 (4.0-10.0)
--- NOTE | 2019-05-22 08:52 | DS ---
Physical Examination Vital Signs: Vital Signs Temperature 97.7 F 05/22/19 06:00 Pulse Rate 73 05/22/19 06:00 Respiratory Rate 18 05/22/19 06:00 Blood Pressure 153/76 05/22/19 06:00 O2 Sat by Pulse Oximetry (%) 99 05/21/19 21:00 Findings/Remarks: DISCUSSED WITH STAFF WILL REASSESS MODIFIED BARIUM SWALLOW OUTPATIENT ONCE MORE STABLE Constitutional: Yes: No Distress Neck: Yes: Other (TRACHEOSTOMY CLEAN) Cardiovascular: Yes: Regular Rate and Rhythm Respiratory: Yes: Diminished, Other Gastrointestinal: Yes: Soft, Other (JTUBE) Renal/: Yes: Incontinence Musculoskeletal: Yes: Muscle Weakness Labs: CBC, BMP 05/22/19 07:40 Discharge Summary Problems reviewed: Yes Reason For Visit: DISLODGED JEJUNOSTOMY TUBE Current Active Problems Anemia (Acute) Bradycardia (Acute) COPD (chronic obstructive pulmonary disease) (Acute) Cerebral palsy (Acute) Chronic respiratory failure (Acute) Dislodged gastrostomy tube (Acute) Dislodged jejunostomy tube (Acute) Functional quadriplegia (Acute) Gastrointestinal tube present (Acute) Jejunostomy tube in situ (Acute) Parkinson disease (Acute) Procedures: Principal: GI WORKUP, DECOMPRESSION GTUBE Other Procedures: XRAYS Hospital Course: GTUBE OPEN FOR DECOMPRESSION, J-TUBE FOR FEEDS AND MEDS, IRON SUCROSE GIVEN WILL GIVE THROUGH J-TUBE Plan of Treatment: IRON SUPPLEMENTS THROUGH JTUBE Condition: Fair - Instructions Diet, Activity, Other Instructions: USE JTUBE FOR FEEDS AND MEDS, AND THE G-TUBE IS FOR DECOMPRESSION MONITOR LABS AND IRON LEVELS OUTPATIENT SWALLOW MODIFIED BARIUM WHEN MORE STABLE MEDICALLY Referrals: Nicola Gomez MD [Primary Care Provider] - Disposition: ALF FACILITY - Home Medications Comprehensive Discharge Medication List: Ambulatory Orders Acetaminophen 650 mg GT Q6H 05/20/19 Budesonide [Pulmicort 0.25 mg -] 1 neb IH BID 05/20/19 Ciclopirox/Urea/Camph/Men/Euc [Ciclopirox 8% Treatment Kit] 34.6 ml TP Q12H 09/01 Cinacalcet HCl [Sensipar -] 60 mg GT DAILY 05/20/19 Clorazepate Dipotassium 3.75 mg GT HS 05/20/19 Dextrose 5 % in Water [Dextrose 5%-Water 50 ml] 50 ml IV DAILY 05/20/19 Heparin - 5,000 unit SQ BID 05/20/19 Ipratropium/Albuterol Sulfate [Iprat-Albut 0.5-3(2.5) mg/3 ml] 3 ml IH QID 05/20 Lamotrigine [Lamictal -] 50 mg GT BID 05/20/19 Metoprolol Tartrate [Lopressor -] 25 mg GT BID 05/20/19 Omeprazole Pediatric Solution [Omeprazole Pediatric Oral Solution] 20 ml GT DAILY 05/20/19 Prednisone 10 mg GT DAILY 05/20/19 Sod Phos Di, [place]/K Phos [place] [Phospha 250 Neutral Tablet] 250 mg GT BID
[2019-05-22 08:57] LABS: ALBUMIN 2.4 g/dl (3.4-5.0); BILIRUBIN,TOTAL 0.3 mg/dL (0.2-1); BLOOD UREA NITROGEN 15.6 mg/dL (7-18); CALCIUM 10.1 mg/dL (8.5-10.1); CREATININE 1.2 mg/dL (0.55-1.3); POTASSIUM 3.7 mmol/L (3.5-5.1); TOT PROT 6.5 g/dl (6.4-8.2)
[2019-05-22] MEDS ORDERED: FERROUS SO4 300 MG/5 ML ORAL SOLN UNIT DOSE CUPS GT SCH (10:00)
[2019-05-22] MEDS: predniSONE 10 MG TABLET (UD) GT SCH (10:09)
[2019-05-22] MEDS: lamoTRIgine 25 MG TABLET PO SCH (10:09)
[2019-05-22] MEDS: FAMOTIDINE 40 MG/5 ML ORAL SUSPENSION PO SCH (10:10)
[2019-05-22] MEDS: HEPARIN NA (PORCINE) 5,000 UNITS/ML 1ML VIAL SQ SCH (10:11)
[2019-05-22 10:27] VITALS: BP 146/80; PULSE 76
[2019-05-22] MEDS: CINACALCET HCL 30 MG TAB (FP) PO SCH (10:33)
== END 2019-05-22 11:46 | DRG 393 ==
LOC: JER 03:31 → JERBED 05:10 → J5S 16:40
PROVIDERS: ADMIT Internal Medicine; ATTEND Family Medicine
PROC: 3E0H76Z Introduction of Nutritional Substance into Lower GI, Via Natural or Artificial Opening (ICD-10-PCS; 2019-05-20)
PROC: 5A1945Z Respiratory Ventilation, 24-96 Consecutive Hours (ICD-10-PCS; 2019-05-20)
PROC: 0D20XUZ Change Feeding Device in Upper Intestinal Tract, External Approach (ICD-10-PCS; principal; 2019-05-21)
DX: Z43.1 Encounter for attention to gastrostomy (principal); R53.2 Functional quadriplegia; J96.10 Chronic respiratory failure, unspecified whether with hypoxia or hypercapnia; Z99.11 Dependence on respirator [ventilator] status; E87.1 Hypo-osmolality and hyponatremia; G80.9 Cerebral palsy, unspecified; G20 Parkinson's disease; J44.9 Chronic obstructive pulmonary disease, unspecified; Z93.0 Tracheostomy status; E86.1 Hypovolemia; D64.9 Anemia, unspecified; R00.1 Bradycardia, unspecified; D63.8 Anemia in other chronic diseases classified elsewhere
CPT/HCPCS: 36415; 49450; 71045-TC-FY; 74018-TC-FY; 76000-TC-FY; 80048; 80053; 80061; 82607; 82728; 83540; 83550; 83721; 83930; 83935; 84300; 84443; 85025; 93005; 93010; 94002; 94640; 99285-25; C1769; C1887; J1644; J1756; J7030

== ENCOUNTER 2019-05-28 06:49 | Inpatient (IN) | payer OTHER ==
--- NOTE | 2019-05-28 07:20 | PDOC ---
Attending Attestation - Resident Resident Name: Simon Gay - HPI HPI: 05/28/19 11:38 Pt presents to the ED for pulled J tube. patient has been seen in the ED multiple times before for the same complaint, with tube replaced in the ED yesterday. History of dementia, parkinsons, etc. 05/28/19 11:55 - Physicial Exam PE: 05/28/19 12:00 agree with resident exam. Patient is awake, non verbal, trached and vented. G tube in place. [place] in stoma for J tube. 05/28/19 12:01 - Medical Decision Making 05/28/19 12:02 Pt presents to the ED for J tube replacement. G tube placed in the ED. contrast study is equivocal. Will confirm placement with CT.
--- NOTE | 2019-05-28 07:37 | PDOC ---
History of Present Illness - General Chief Complaint: G Tube Problem Stated Complaint: G-TUBE REPLACEMENT Time Seen by Provider: 05/28/19 07:20 - History of Present Illness Initial Comments: The pt is a 68M with PMH of Cerebral Palsy, Intellectual Disabilities, Parkinson 's Disease, Chronic Respiratory Failure s/p Trach- vent dependent, COPD, J- tube (for feeds), G tube (for decompression) presenting from [facility] for J tube replacement after accidental removal. 05/28/19 08:06 Past History - Past Medical History Allergies/Adverse Reactions: Allergies Allergy/AdvReac Type Severity Reaction Status Date / Time No Known Allergies Allergy Verified 05/28/19 06:56 Home Medications: Ambulatory Orders Acetaminophen 650 mg GT Q6H 05/20/19 Budesonide [Pulmicort 0.25 mg Nebulizer -] 1 neb IH BID 05/20/19 Clorazepate Dipotassium 3.75 mg GT HS 05/20/19 Heparin - 5,000 unit SQ BID 05/20/19 Ipratropium/Albuterol Sulfate [Iprat-Albut 0.5-3(2.5) mg/3 ml] 3 ml IH QID 05/20 Lamotrigine [Lamictal -] 50 mg GT BID 05/20/19 Omeprazole Pediatric Solution [Omeprazole Pediatric Oral Solution] 20 ml GT DAILY 05/20/19 Prednisone 10 mg GT DAILY 05/20/19 Sod Phos Di, [place]/K Phos [place] [Phospha 250 Neutral Tablet] 250 mg GT BID Ferrous Sulfate [Feosol] 300 mg GT DAILY udc 05/22/19 Cinacalcet HCl [Sensipar] 60 mg GT DAILY 05/28/19 Asthma: Yes COPD: Yes (resp failure,trach-vent dependent,pneumonia) GI Disorders: (pt has a jtube that is clamped and a dislodged gtube, 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) HTN: Yes Psychiatric Problems: Yes (schizopfrenia) Seizures: Yes - Psycho Social/Smoking Cessation Hx Smoking History: Unknown if ever smoked Have you smoked in the past 12 months: No Hx Alcohol Use: No Drug/Substance Use Hx: No Substance Use Type: None Hx Substance Use Treatment: No Review of Systems - Review of Systems Able to Perform ROS?: No (2/2 medical condition) *Physical Exam - Vital Signs Last Vital Signs Temp Pulse Resp BP Pulse Ox 98.9 F 109 H 17 99/82 97 05/28/19 06:50 05/28/19 07:03 05/28/19 07:03 05/28/19 07:03 05/28/19 07:03 - Physical Exam GENERAL: Awake, non-verbal HEAD: No signs of trauma, normocephalic, atraumatic EYES: PERRLA, EOMI, sclera anicteric, conjunctiva clear ENT: Hearing grossly normal, nares patent, oropharynx clear without exudates NECK: Tracheostomy in place LUNGS: No distress, speaks in full sentences, clear to auscultation bilaterally HEART: Regular rate and rhythm, normal S1 and S2, no murmurs appreciated ABDOMEN: Soft, healed midline incision, upper g-tube in place; lower j-tube site with lozano in place; well healed midline incision with EXTREMITIES: Moves all extremities independently NEUROLOGICAL: Does not follow commands, withdraws to pain SKIN: Warm, Dry 05/28/19 08:07 Medical Decision Making - Medical Decision Making The pt is a 68M with PMH of Cerebral Palsy, Intellectual Disabilities, Parkinson 's Disease, Chronic Respiratory Failure s/p Trach- vent dependent, COPD, J- tube (for feeds), G tube (for decompression) presenting from [facility] for J tube replacement after accidental removal. No J-tubes available. Replaced with 16F G-tube KUB obtained with contrast 05/28/19 07:36 IV placed Labs sent CT w/ extravasation of contrast around J-tube J-tube removed Plan for admission for J-tube replacement -Consult for Dr. Tai placed, mamie placed, awaiting call back NPO Pt signed out to Dr. Badillo for admission 05/28/19 16:19 Discharge - Discharge Information Problems reviewed: Yes Clinical Impression/Diagnosis: Dislodged jejunostomy tube Bowel obstruction Qualifiers: Intestinal obstruction type: unspecified Intestinal obstruction extent: unspecified extent Qualified Code(s): K56.609 - Unspecified intestinal obstruction, unspecified as to partial versus complete obstruction Condition: Fair - Admission Yes - Follow up/Referral Referrals: Nicola Gomez MD [Primary Care Provider] - - Patient Discharge Instructions Patient Printed Discharge Instructions: DI for Feeding Tube Exchange - Post Discharge Activity
[2019-05-28 16:57] LABS: BASO % 0.3 % (0-2.0); HEMATOCRIT 30.1 % (35.4-49); HEMOGLOBIN 10.2 GM/dL (11.7-16.9); LYMPH % 6.7 % (8-40); MCH 31.6 pg (25.7-33.7); MCHC 33.8 g/dl (32.0-35.9); MEAN CELL VOLUME 93.6 fl (80-96); MEAN PLT VOLUME 8.3 fl (7.5-11.1); MONO % 4.3 % (3.8-10.2); NEUT % 88.7 % (42.8-82.8); PLATELET COUNT 449 K/MM3 (134-434); RBC 3.21 M/mm3 (4.00-5.60)
[2019-05-28 17:16] LABS: INR 1.27 (0.83-1.09)
[2019-05-28 17:18] LABS: ACTIVATED PTT 34.2 SECONDS (25.2-36.5)
[2019-05-28 17:26] LABS: ALBUMIN 2.7 g/dl (3.4-5.0); BILIRUBIN,TOTAL 1.3 mg/dL (0.2-1); BLOOD UREA NITROGEN 30.6 mg/dL (7-18); CALCIUM 10.9 mg/dL (8.5-10.1); CREATININE 1.3 mg/dL (0.55-1.3); POTASSIUM 4.5 mmol/L (3.5-5.1); TOT PROT 7.7 g/dl (6.4-8.2)
[2019-05-28] MEDS: D5-1/2NS+20 MEQ KCL - 20 MEQ/1,000 ML INFUS.BAG IV SCH (17:39)
[2019-05-28] MEDS ORDERED: VANCOMYCIN 1 GM in D5W (PRE-DOCKED) 1,000 MG/250 ML IVPB SCH (17:45)
[2019-05-28] MEDS ORDERED: VANCOMYCIN 1 GM in D5W (PRE-DOCKED) 1,000 MG/250 ML IVPB ONE (18:00)
[2019-05-28] MEDS ORDERED: VANCOMYCIN 1 GRAM (PRE-DOCKED) 1,000 MG/250 ML BAG IVPB ONE (18:21)
[2019-05-28] MEDS ORDERED: methylPREDNISolone NA SUCC 40 MG/1 ML VIAL ONE (18:21)
[2019-05-28] MEDS: methylPREDNISolone NA SUCC 40 MG/1 ML VIAL IVPUSH SCH (18:27)
--- NOTE | 2019-05-28 18:27 | HP ---
Admitting History and Physical - Admission History of Present Illness: 68M with PMH of Cerebral Palsy, Intellectual Disabilities, Parkinson's Disease, Chronic Respiratory Failure s/p Trach- vent dependent, COPD, J-tube (for feeds) , G tube (for decompression) presenting from [facility] for J tube replacement after accidental removal. 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: Parkinson's, Other (CP, MR) Pulmonary: Yes: COPD, O2 Dependent (trach- vent dependent) - Smoking History Smoking history: Unknown if ever smoked Have you smoked in the past 12 months: No - Alcohol/Substance Use Hx Alcohol Use: No History of Substance Use: reports: None - Social History ADL: Support Services History of Recent Travel: No Home Medications - Allergies Allergies/Adverse Reactions: Allergies Allergy/AdvReac Type Severity Reaction Status Date / Time No Known Allergies Allergy Verified 05/28/19 06:56 - Home Medications Home Medications: Ambulatory Orders Acetaminophen 650 mg GT Q6H 05/20/19 Budesonide [Pulmicort 0.25 mg Nebulizer -] 1 neb IH BID 05/20/19 Clorazepate Dipotassium 3.75 mg GT HS 05/20/19 Heparin - 5,000 unit SQ BID 05/20/19 Ipratropium/Albuterol Sulfate [Iprat-Albut 0.5-3(2.5) mg/3 ml] 3 ml IH QID 05/20 Lamotrigine [Lamictal -] 50 mg GT BID 05/20/19 Omeprazole Pediatric Solution [Omeprazole Pediatric Oral Solution] 20 ml GT DAILY 05/20/19 Prednisone 10 mg GT DAILY 05/20/19 Sod Phos Di, [place]/K Phos [place] [Phospha 250 Neutral Tablet] 250 mg GT BID Ferrous Sulfate [Feosol] 300 mg GT DAILY udc 05/22/19 Cinacalcet HCl [Sensipar] 60 mg GT DAILY 05/28/19 Physical Examination Vital Signs: Vital Signs Temperature 98.9 F 05/28/19 06:50 Pulse Rate 114 H 05/28/19 17:33 Respiratory Rate 19 05/28/19 14:33 Blood Pressure 110/93 05/28/19 17:33 O2 Sat by Pulse Oximetry (%) 98 05/28/19 17:33 Cardiovascular: Yes: S1, S2 Respiratory: Yes: Mechanically Ventilated, Rhonchi Gastrointestinal: Yes: Soft, Distention, Other (abd wall hernia) Extremities: Yes: Other (contractures) Labs: CBC, BMP 05/28/19 15:58 05/28/19 15:58 Imaging - Results Cat Scan: Report Reviewed Problem List - Problems (1) Bowel obstruction Assessment/Plan: NPO GI AND SURGICAL CONSULTS IVF Code(s): K56.609 - UNSP INTESTNL OBST, UNSP TO PARTIAL VERSUS COMPLETE OBST Qualifiers: Intestinal obstruction type: unspecified Intestinal obstruction extent: unspecified extent Qualified Code(s): K56.609 - Unspecified intestinal obstruction, unspecified as to partial versus complete obstruction (2) Dislodged jejunostomy tube Assessment/Plan: CT scan revealed question of ileitis, bibasilar consolidations with air bronchograms, rectosigmoid fecal impaction, G-tube in stomach. It appears as though attempt was made at placement of J-Tube. Repeat CT scan noted it to be extraluminal with extravasation of contrast. It also revealed two short tubular densities within a small bowel loop. go and surgical consult Code(s): T85.528A - DISPLACEMENT OF GASTROINTESTINAL PROSTH DEV/GRFT, INIT (3) Chronic respiratory failure Assessment/Plan: vent pulm consult Code(s): J96.10 - CHRONIC RESPIRATORY FAILURE, UNSP W HYPOXIA OR HYPERCAPNIA (4) COPD (chronic obstructive pulmonary disease) Code(s): J44.9 - CHRONIC OBSTRUCTIVE PULMONARY DISEASE, UNSPECIFIED (5) Leukocytosis Assessment/Plan: r/o aspiration cultures iv abx id consult Code(s): D72.829 - ELEVATED WHITE BLOOD CELL COUNT, UNSPECIFIED
[2019-05-28] MEDS ORDERED: PIPERACILLIN/TAZOB 3.375 GM 3.375 GM/50 ML BAG IVPB ONE (19:27)
[2019-05-28] MEDS: PIPERACILLIN/TAZOB 3.375 GM 3.375 GM in DEXTROSE 5%-WATER - 50 ML IVPB SCH (19:40)
--- NOTE | 2019-05-28 19:50 | CON.GI ---
Consult Consult Specialty:: GI Referred by:: Dr. Mindy Badillo Reason for Consultation:: Dislodged J-Tube - History of Present Illness Chief Complaint: Patient non-verbal History of Present Illness: 68 yo male from [facility] with a PMHx of Cerebral Palsy, Intellectual Disabilities, Parkinson's Disease, Chronic Respiratory Failure s/p Trach- vent dependent, COPD. He has a G-Tube and J-Tube. Recently admitted when his G- Tube was dislodged. It was replaced by IR. Now he is admitted because the J- Tube was dislodged. There currently is a closed J-Tube stoma. It appears as though three abdominal CT scans were performed in the ER. Initial CT scan revealed question of ileitis, bibasilar consolidations with air bronchograms, rectosigmoid fecal impaction, G-tube in stomach. It appears as though attempt was made at placement of J-Tube. Repeat CT scan noted it to be extraluminal with extravasation of contrast. It also revealed two short tubular densities within a small bowel loop. The radiologist raised the question of this being remnant of previous J-Tubes. Called to evaluate for small bowel obstruction. 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: Parkinson's, Other (CP, MR) Pulmonary: Yes: COPD, O2 Dependent (trach- vent dependent) - Past Surgical History Additional Surgical History: gastrostomy, Jejunostomy - Alcohol/Substance Use Hx Alcohol Use: No History of Substance Use: reports: None - Smoking History Smoking history: Unknown if ever smoked Have you smoked in the past 12 months: No - Social History ADL: Support Services History of Recent Travel: No Home Medications - Allergies Allergies/Adverse Reactions: Allergies Allergy/AdvReac Type Severity Reaction Status Date / Time No Known Allergies Allergy Verified 05/28/19 06:56 - Home Medications Home Medications: Ambulatory Orders Acetaminophen 650 mg GT Q6H 05/20/19 Budesonide [Pulmicort 0.25 mg Nebulizer -] 1 neb IH BID 05/20/19 Clorazepate Dipotassium 3.75 mg GT HS 05/20/19 Heparin - 5,000 unit SQ BID 05/20/19 Ipratropium/Albuterol Sulfate [Iprat-Albut 0.5-3(2.5) mg/3 ml] 3 ml IH QID 05/20 Lamotrigine [Lamictal -] 50 mg GT BID 05/20/19 Omeprazole Pediatric Solution [Omeprazole Pediatric Oral Solution] 20 ml GT DAILY 05/20/19 Prednisone 10 mg GT DAILY 05/20/19 Sod Phos Di, [place]/K Phos [place] [Phospha 250 Neutral Tablet] 250 mg GT BID Ferrous Sulfate [Feosol] 300 mg GT DAILY udc 05/22/19 Cinacalcet HCl [Sensipar] 60 mg GT DAILY 05/28/19 Family Medical History Family History: Unable to Obtain Review of Systems Unable to obtain ROS, reason: Non verbal Physical Exam-GI Vital Signs: Vital Signs Temperature 98.9 F 05/28/19 06:50 Pulse Rate 122 H 05/28/19 18:43 Respiratory Rate 19 05/28/19 14:33 Blood Pressure 110/93 05/28/19 17:33 O2 Sat by Pulse Oximetry (%) 98 05/28/19 17:33 Constitutional: Yes: Calm Eyes: No: Sclera Icterus Cardiovascular: Yes: Tachycardia Respiratory: Yes: Diminished (at bases with poor insp effort) Gastrointestinal Inspection: Yes: Hernia (Midline incisional hernia), Scars ( midline vertical surgical scar). No: Distention ...Auscultate: Yes: Normoactive Bowel Sounds ...Palpate: Yes: Soft. No: Hepatomegaly, Splenomegaly, Tenderness ...Percussion: No: Tympanitic Edema: No (No LE edema) Neurological: Yes: Other (Awake) Labs: CBC, BMP 05/28/19 15:58 05/28/19 15:58 INR, PTT INR 1.27 (0.83-1.09) H 05/28/19 15:58 Imaging - Results Cat Scan: Report Reviewed, Image Reviewed Problem List - Problems (1) Dislodged jejunostomy tube Assessment/Plan: with extravasation of contrast noted. Also question of retained fragments of previous J-Tubes in small bowel Advise: Surgical evaluation to comment on extravasated contrast through J-Tube and retained tube fragments Will eventually need J-Tube replaced either by IR or surgery IV Abx. On zosyn and ID consulted Hold feeds Code(s): T85.528A - DISPLACEMENT OF GASTROINTESTINAL PROSTH DEV/GRFT, INIT (2) Leukocytosis Assessment/Plan: Has bilateral lung consolidations. On Zosyn currently ? of ileitis, however unclear of significance of this finding at this time. Code(s): D72.829 - ELEVATED WHITE BLOOD CELL COUNT, UNSPECIFIED (3) Fecal impaction Assessment/Plan: Of rectosigmoid Will need bowel regimen with GI tract could be used after patient evaluated by surgery Code(s): K56.41 - FECAL IMPACTION
[2019-05-28] MEDS ORDERED: ALBUTEROL SO4 2.5/IPRATROPIUM 0.5 INH SOL 3 ML VIAL.NEB. NEB ONE (20:15)
[2019-05-28] MEDS: ALBUTEROL SO4 2.5/IPRATROPIUM 0.5 INH SOL 3 ML VIAL.NEB. NEB SCH (20:20)
[2019-05-29] MEDS ORDERED: PANTOPRAZOLE SODIUM 40 MG/100 ML BAG IVPB ONE (00:06)
[2019-05-29] MEDS ORDERED: lamoTRIgine 25 MG TABLET ONE (00:06)
[2019-05-29] MEDS ORDERED: methylPREDNISolone NA SUCC 40 MG/1 ML VIAL ONE (01:39)
[2019-05-29] MEDS ORDERED: PIPERACILLIN/TAZOB 3.375 GM 3.375 GM/50 ML BAG IVPB ONE (01:40)
[2019-05-29] MEDS: methylPREDNISolone NA SUCC 40 MG/1 ML VIAL IVPUSH SCH ×2 (02:01→10:05)
[2019-05-29] MEDS: PANTOPRAZOLE SODIUM 40 MG VIAL IVPUSH SCH ×2 (02:01→10:04)
[2019-05-29] MEDS: lamoTRIgine 25 MG TABLET NR SCH ×2 (02:01→10:04)
[2019-05-29] MEDS: PIPERACILLIN/TAZOB 3.375 GM 3.375 GM in DEXTROSE 5%-WATER - 50 ML IVPB SCH ×5 (02:01→18:36)
[2019-05-29 07:50] LABS: BASO % 0.1 % (0-2.0); HEMATOCRIT 27.2 % (35.4-49); HEMOGLOBIN 9.4 GM/dL (11.7-16.9); LYMPH % 5.8 % (8-40); MCH 31.9 pg (25.7-33.7); MCHC 34.6 g/dl (32.0-35.9); MEAN CELL VOLUME 92.4 fl (80-96); MEAN PLT VOLUME 7.8 fl (7.5-11.1); MONO % 1.8 % (3.8-10.2); NEUT % 92.3 % (42.8-82.8); PLATELET COUNT 364 K/MM3 (134-434); RBC 2.95 M/mm3 (4.00-5.60); RDW 16.2 % (11.9-15.9); WHITE BLOOD COUNT 14.1 K/mm3 (4.0-10.0)
[2019-05-29] MEDS: D5-1/2NS+20 MEQ KCL - 20 MEQ/1,000 ML INFUS.BAG IV SCH ×2 (08:08→16:28)
[2019-05-29 08:17] LABS: ALBUMIN 2.4 g/dl (3.4-5.0); BILIRUBIN,TOTAL 1.5 mg/dL (0.2-1); BLOOD UREA NITROGEN 29.6 mg/dL (7-18); CALCIUM 10.8 mg/dL (8.5-10.1); CREATININE 1.2 mg/dL (0.55-1.3); MAGNESIUM 2.1 mg/dL (1.8-2.4); POTASSIUM 3.8 mmol/L (3.5-5.1); TOT PROT 7.2 g/dl (6.4-8.2)
[2019-05-29] MEDS: ALBUTEROL SO4 2.5/IPRATROPIUM 0.5 INH SOL 3 ML VIAL.NEB. NEB SCH ×4 (08:30→22:00)
[2019-05-29] MEDS ORDERED: ALBUTEROL SO4 2.5/IPRATROPIUM 0.5 INH SOL 3 ML VIAL.NEB. NEB ONE ×2 (08:50→21:48)
[2019-05-29] MEDS: BUDESONIDE 0.25 MG/2ML INH SUSP VIAL NEB SCH ×3 (09:15→22:00)
--- NOTE | 2019-05-29 09:24 | PN ---
Progress Note, Physician - Current Medication List Current Medications: Active Medications Albuterol/Ipratropium (Duoneb -) 1 amp NEB RQID ELOINA Last Admin: 05/29/19 08:30 Dose: 1 amp Budesonide (Pulmicort 0.25 Mg Nebulizer -) 1 amp NEB RBID ELOINA Cinacalcet (Sensipar -) 60 mg PO DAILY [facility] Potassium Chloride/Dextrose/Sod Cl (D5-1/2ns+20 Meq Kcl -) 20 meq in 1,000 mls @ 75 mls/hr IV ASDIR ELOINA Last Admin: 05/29/19 08:08 Dose: 75 mls/hr Piperacillin Sod/Tazobactam (Sod 3.375 gm/ Dextrose) 50 mls @ 100 mls/hr IVPB Q8H-IV ELOINA; Protocol Piperacillin Sod/Tazobactam (Sod 3.375 gm/ Dextrose) 50 mls @ 100 mls/hr IVPB Q8H-IV ELOINA; Protocol Stop: 05/29/19 17:59 Last Admin: 05/29/19 02:01 Dose: 100 mls/hr Lamotrigine (Lamictal -) 50 mg NR BID ELOINA Last Admin: 05/29/19 02:01 Dose: 50 mg Methylprednisolone Sodium Succinate (Solu-Medrol -) 20 mg IVPUSH Q8H-IV ELOINA Last Admin: 05/29/19 02:01 Dose: 20 mg Pantoprazole Sodium (Protonix Iv) 40 mg IVPUSH BID ELOINA Last Admin: 05/29/19 02:01 Dose: 40 mg Vancomycin HCl (Vancomycin (Pre-Docked)) 1,000 mg IVPB DAILY ELOINA; Protocol - Objective Vital Signs: Vital Signs Temperature 98.9 F 05/28/19 06:50 Pulse Rate 84 05/29/19 08:12 Respiratory Rate 12 05/29/19 08:58 Blood Pressure 128/78 05/29/19 08:12 O2 Sat by Pulse Oximetry (%) 100 05/29/19 08:12 Cardiovascular: Yes: S1, S2 Respiratory: Yes: Mechanically Ventilated, Rhonchi Gastrointestinal: Yes: Soft, Distention, Other (abd wall hernia) Edema: No Labs: CBC, BMP 05/29/19 06:43 05/29/19 06:43 INR, PTT INR 1.27 (0.83-1.09) H 05/28/19 15:58 Problem List - Problems (1) Bowel obstruction Assessment/Plan: Questionable NPO GI noted SURGICAL CONSULTS PENDING IVF Code(s): K56.609 - UNSP INTESTNL OBST, UNSP TO PARTIAL VERSUS COMPLETE OBST Qualifiers: Intestinal obstruction type: unspecified Intestinal obstruction extent: unspecified extent Qualified Code(s): K56.609 - Unspecified intestinal obstruction, unspecified as to partial versus complete obstruction (2) Dislodged jejunostomy tube Assessment/Plan: USED FOR FEEDINGS--ON HOLD NOW GT TUBE FOR SUCTIONING CT scan revealed question of ileitis, bibasilar consolidations with air bronchograms, rectosigmoid fecal impaction, G-tube in stomach. It appears as though attempt was made at placement of J-Tube. Repeat CT scan noted it to be extraluminal with extravasation of contrast. It also revealed two short tubular densities within a small bowel loop. surgical consult Code(s): T85.528A - DISPLACEMENT OF GASTROINTESTINAL PROSTH DEV/GRFT, INIT (3) Chronic respiratory failure Assessment/Plan: vent pulm consult Code(s): J96.10 - CHRONIC RESPIRATORY FAILURE, UNSP W HYPOXIA OR HYPERCAPNIA (4) COPD (chronic obstructive pulmonary disease) Code(s): J44.9 - CHRONIC OBSTRUCTIVE PULMONARY DISEASE, UNSPECIFIED (5) Leukocytosis Assessment/Plan: r/o aspiration--CXR cultures iv abx id consult LACTIC ACID 2.1--REPEAT Code(s): D72.829 - ELEVATED WHITE BLOOD CELL COUNT, UNSPECIFIED (6) Anemia Assessment/Plan: W/U ORDERED MONITOR Code(s): D64.9 - ANEMIA, UNSPECIFIED (7) Cerebral palsy Assessment/Plan: NEURO Code(s): G80.9 - CEREBRAL PALSY, UNSPECIFIED
--- NOTE | 2019-05-29 09:29 | PN ---
Progress Note (short form) - Note Progress Note: ID consult dictated imp/reccd 68 yo man with chronic resp failure, copd, MS/MR sent from ID for dislodged feeding tube leukocytosis, ?pneumonia, ?ileitis ?retained prior feeding tube remnant fecal retention surgery to see continue anasyn for now Problem List - Problems (1) Dislodged jejunostomy tube Code(s): T85.528A - DISPLACEMENT OF GASTROINTESTINAL PROSTH DEV/GRFT, INIT (2) Leukocytosis Code(s): D72.829 - ELEVATED WHITE BLOOD CELL COUNT, UNSPECIFIED (3) Pneumonia Code(s): J18.9 - PNEUMONIA, UNSPECIFIED ORGANISM (4) Ileitis Code(s): K52.9 - NONINFECTIVE GASTROENTERITIS AND COLITIS, UNSPECIFIED (5) Chronic respiratory failure Code(s): J96.10 - CHRONIC RESPIRATORY FAILURE, UNSP W HYPOXIA OR HYPERCAPNIA
[2019-05-29] MEDS: CINACALCET HCL 30 MG TAB (FP) PO SCH (10:04)
--- NOTE | 2019-05-29 10:28 | CONS ---
INFECTIOUS DISEASE CONSULTATION DATE OF CONSULTATION: DATE OF DICTATION: 05/29/2019 HISTORY: This is a 68-year-old man with chronic respiratory failure. He has been seen in the ER several times for dislodged G-tube and J-tube. He now is sent back to the ER again for a dislodged tube. It accidentally fell out. I am asked to see him for possible pneumonia. He was noted in the emergency room to have an elevated white count of 17,000. PAST MEDICAL HISTORY: Notable for cerebral palsy, Parkinson disease, chronic respiratory failure, status post tracheostomy. He is ventilator dependent. He has a history of COPD, a J-tube for feeds, a G-tube for decompression. He has a history of schizophrenia and seizures. He is tracheostomy dependent. SURGICAL HISTORY: Notable for J-tube, G-tube, and tracheostomy. ALLERGIES: He has no known drug allergies. MEDICATIONS: At the senior living include prednisone 10 mg daily, iron, omeprazole, Lamictal, DuoNebs, and Pulmicort. SOCIAL HISTORY: There is no history of substance use. It is unknown if he has ever smoked. FAMILY HISTORY: Unable to obtain. REVIEW OF SYSTEMS: As well, he is nonverbal. Could not obtain. PHYSICAL EXAMINATION: General: He is a thin man. He is somewhat contracted. He is lying on his side. He has had no fever since admission. Vital Signs: Temperature 98.9, pulse 84, blood pressure 128/78, respiratory rate is 23, saturating 100% on 40% FiO2. HEENT: He is normocephalic. His eyes are open. He looks alert. He has a tracheostomy in place. Lungs: Diminished breath sounds at the bases. Heart: Regular rate and rhythm. Abdomen: Distended. He has got a G-tube in place. He has got a dressing at the site of the prior J-tube. Extremities: Without any edema. His legs are contracted. Skin: He has no skin breakdown. DIAGNOSTIC DATA: CT of his abdomen and pelvis shows bibasilar consolidation with air bronchograms more towards the right side. There is question of terminal ileitis , and he has some soft tissue mass density that it is unclear what it is. Labs are notable admission white count is 19,000, this morning is 14, hemoglobin 9.4, platelets are 364. BUN 29, creatinine 1.2. LFTs are normal. Blood cultures are pending. In summary, this is a 68-year-old man with chronic respiratory failure, COPD, MS , and mild mental retardation sent from the senior living for dislodged feeding tube. Question whether he has pneumonia, ileitis as well as retained prior feeding tube. He has fecal retention as well. Surgical consult has been called for further evaluation. Would suggest continuing Zosyn for now to cover both intra- abdominal as well as lung focus for infection. Cultures have been sent. Further recommendations to follow. Ammon [id number] MTDD
--- NOTE | 2019-05-29 11:06 | PN ---
Progress Note (short form) - Note Progress Note: surgery 68m cp with g-tube to drainage for aspiration and surgical jejunostomy placed 1 month ago at [facility] in [facility]. the jejunostomy tube is dislodged and for some reason the loop of small bowel Is no longer fixed to the abdominal wall so cannot be replaced by IR. there is also concern of ileitis. I am not concerned about the small spillage of gastrograffin as it is relatively safe. spoke with Dr Guy and can attempt replacing G-tube with G -J dual lumen tube after the gtube tract matures. suggest tpn or gtube feeds if aspiration risk is safe. if unable to succeed with IR g-j tube can consider replacement of jejunostomy surgically but should wait another 2 weeks before entering the abdomen because of adhesion risk from recent laparotomy. sharif-eval in 2 weeks for surgival placement if IR unsuccessful.
[2019-05-29 11:30] LABS: ANISOCYTOSIS 1+; MACROCYTOSIS 0; OVALOCYTE 1+; PLATELET ESTIMATE NORMAL; TARGET CELLS 1+; TEAR DROP CELLS 1+
--- NOTE | 2019-05-29 15:14 | EKG ---
Test Reason : Blood Pressure : / mmHG Vent. Rate : 124 BPM Atrial Rate : 124 BPM P-R Int : 156 ms QRS Dur : 084 ms QT Int : 298 ms P-R-T Axes : 051 026 061 degrees QTc Int : 428 ms SINUS TACHYCARDIA WITH PREMATURE VENTRICULAR COMPLEXES OR FUSION COMPLEXES NONSPECIFIC ST ABNORMALITY Confirmed by ALKA SANON MD ([id number]) on 05/29/2019 3:13:51 PM Referred By: Confirmed By:ALKA SANON MD
--- NOTE | 2019-05-29 15:57 | CON.PULM ---
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 No: Sleep Apnea - Past Surgical History Additional Surgical History: gastrostomy, Jejunostomy - Alcohol/Substance Use Hx Alcohol Use: No History of Substance Use: reports: None - Smoking History Smoking history: Unknown if ever smoked Have you smoked in the past 12 months: No - Social History ADL: Support Services History of Recent Travel: No Home Medications - Allergies Allergies/Adverse Reactions: Allergies Allergy/AdvReac Type Severity Reaction Status Date / Time No Known Allergies Allergy Verified 05/28/19 06:56 - Home Medications Home Medications: Ambulatory Orders Acetaminophen 650 mg GT Q6H 05/20/19 Budesonide [Pulmicort 0.25 mg Nebulizer -] 1 neb IH BID 05/20/19 Clorazepate Dipotassium 3.75 mg GT HS 05/20/19 Heparin - 5,000 unit SQ BID 05/20/19 Ipratropium/Albuterol Sulfate [Iprat-Albut 0.5-3(2.5) mg/3 ml] 3 ml IH QID 05/20 Lamotrigine [Lamictal -] 50 mg GT BID 05/20/19 Omeprazole Pediatric Solution [Omeprazole Pediatric Oral Solution] 20 ml GT DAILY 05/20/19 Prednisone 10 mg GT DAILY 05/20/19 Sod Phos Di, Clay/K Phos Clay [Phospha 250 Neutral Tablet] 250 mg GT BID Ferrous Sulfate [Feosol] 300 mg GT DAILY udc 05/22/19 Cinacalcet HCl [Sensipar] 60 mg GT DAILY 05/28/19 Review of Systems Unable to obtain ROS, reason: not able to provide Physical Exam Vital Sings: Vital Signs Temperature 97.3 F L 05/29/19 15:26 Pulse Rate 85 05/29/19 15:26 Respiratory Rate 17 05/29/19 15:26 Blood Pressure 162/77 05/29/19 15:26 O2 Sat by Pulse Oximetry (%) 100 05/29/19 08:12 Constitutional: Yes: No Distress, Thin Eyes: Yes: Conjunctiva Clear, EOM Intact HENT: Yes: Atraumatic, Normocephalic, Other (Trach intact ) Cardiovascular: Yes: Regular Rate and Rhythm Respiratory: Yes: Diminished, Mechanically Ventilated, Rhonchi. No: Accessory Muscle Use, SOB, SOB on Exertion, Stridor, Tachypnea, Wheezes ...Inspection: Yes: WNL ...Clubbing: No Gastrointestinal: Yes: Normal Bowel Sounds, Soft Musculoskeletal: Yes: WNL Extremities: Yes: WNL Edema: No Peripheral Pulses WNL: Yes Neurological: Yes: Confusion, Lethargy Labs: CBC, BMP 05/29/19 06:43 05/29/19 06:43 Imaging - Results Chest X-ray: Report Reviewed, Image Reviewed Problem List - Problems (1) Pleural effusion Code(s): J90 - PLEURAL EFFUSION, NOT ELSEWHERE CLASSIFIED (2) Anemia Code(s): D64.9 - ANEMIA, UNSPECIFIED (3) Dislodged jejunostomy tube Code(s): T85.528A - DISPLACEMENT OF GASTROINTESTINAL PROSTH DEV/GRFT, INIT (4) Ileitis Code(s): K52.9 - NONINFECTIVE GASTROENTERITIS AND COLITIS, UNSPECIFIED (5) Leukocytosis Code(s): D72.829 - ELEVATED WHITE BLOOD CELL COUNT, UNSPECIFIED (6) Pneumonia Code(s): J18.9 - PNEUMONIA, UNSPECIFIED ORGANISM (7) COPD (chronic obstructive pulmonary disease) Code(s): J44.9 - CHRONIC OBSTRUCTIVE PULMONARY DISEASE, UNSPECIFIED (8) Chronic respiratory failure Code(s): J96.10 - CHRONIC RESPIRATORY FAILURE, UNSP W HYPOXIA OR HYPERCAPNIA (9) Functional quadriplegia Code(s): R53.2 - FUNCTIONAL QUADRIPLEGIA (10) Parkinson disease Code(s): G20 - PARKINSON'S DISEASE Assessment/Plan AC Mode of vent ABX coverage per ID Martin-culture Surgical/GI evaluation was noted VTE prophylaxis Monitor off systemic steroids for now BD TX PRN Vent floor monitoring Will follow Thank you. Dr Alexandre
--- NOTE | 2019-05-29 16:19 | CON.CARD ---
Consult Consult Specialty:: Cardiology Reason for Consultation:: PreOp - History of Present Illness History of Present Illness: This is a 68 year old male with a PMH of Cerebral Palsy, Intellectual Disabilities, Parkinson's Disease, Chronic Respiratory Failure s/p Trach- vent dependent, COPD, J-tube (for feeds), and G tube (for decompression). He presents from [facility] for a J tube replacement after accidental removal. EKG Sinus tachycardia at 124 BPM wih normal intervals, normal axis, and NSSTTW changes. - Past Medical History [employer]: Yes: Parkinson's, Other (CP, MR) Pulmonary: Yes: COPD, O2 Dependent (trach- vent dependent), Previously Intubated , Other (Vent dependent ). No: Sleep Apnea - Past Surgical History Additional Surgical History: gastrostomy, Jejunostomy - Alcohol/Substance Use Hx Alcohol Use: No History of Substance Use: reports: None - Smoking History Smoking history: Unknown if ever smoked Have you smoked in the past 12 months: No - Social History ADL: Support Services History of Recent Travel: No Home Medications - Allergies Allergies/Adverse Reactions: Allergies Allergy/AdvReac Type Severity Reaction Status Date / Time No Known Allergies Allergy Verified 05/28/19 06:56 - Home Medications Home Medications: Ambulatory Orders Acetaminophen 650 mg GT Q6H 05/20/19 Budesonide [Pulmicort 0.25 mg Nebulizer -] 1 neb IH BID 05/20/19 Clorazepate Dipotassium 3.75 mg GT HS 05/20/19 Heparin - 5,000 unit SQ BID 05/20/19 Ipratropium/Albuterol Sulfate [Iprat-Albut 0.5-3(2.5) mg/3 ml] 3 ml IH QID 05/20 Lamotrigine [Lamictal -] 50 mg GT BID 05/20/19 Omeprazole Pediatric Solution [Omeprazole Pediatric Oral Solution] 20 ml GT DAILY 05/20/19 Prednisone 10 mg GT DAILY 05/20/19 Sod Phos Di, Shelby/K Phos Shelby [Phospha 250 Neutral Tablet] 250 mg GT BID Ferrous Sulfate [Feosol] 300 mg GT DAILY udc 05/22/19 Cinacalcet HCl [Sensipar] 60 mg GT DAILY 05/28/19 Vital Signs: Vital Signs Temperature 97.3 F L 05/29/19 15:26 Pulse Rate 85 05/29/19 15:26 Respiratory Rate 17 05/29/19 15:26 Blood Pressure 162/77 05/29/19 15:26 O2 Sat by Pulse Oximetry (%) 100 05/29/19 08:12 Constitutional: Yes: No Distress Eyes: Yes: WNL HENT: Yes: WNL, Other (trach) Respiratory: Yes: Mechanically Ventilated Cardiovascular: Yes: Regular Rate and Rhythm, Tachycardia Heart Sounds: Yes: S1, S2 Edema: No Neurological: Yes: Other (Cerebral Palsy) - Other Data Labs, Other Data: CBC, BMP 05/29/19 06:43 05/29/19 06:43 INR, PTT INR 1.27 (0.83-1.09) H 05/28/19 15:58 Assessment/Plan 68 year old male with a PMH of Cerebral Palsy, Intellectual Disabilities, Parkinson's Disease, Chronic Respiratory Failure s/p Trach- vent dependent, COPD, J-tube (for feeds), and G tube (for decompression). He presents from [facility] for a J tube replacement after accidental removal. EKG Sinus tachycardia at 124 BPM wih normal intervals, normal axis, and NSSTTW changes. Presently hemodynamically stable and not tachycardic PreOp There are no cardiac contraindications to the planned procedure.
--- NOTE | 2019-05-29 18:26 | PN.GI ---
GI Progress Note Subjective: No acute events J-tube could not be replaced by IR. Seen by surgery. Note describes Mr. Bernal having had recent laparotomy. - Objective Vital Signs: Vital Signs Temperature 97.3 F L 05/29/19 15:26 Pulse Rate 85 05/29/19 15:26 Respiratory Rate 16 05/29/19 17:13 Blood Pressure 162/77 05/29/19 15:26 O2 Sat by Pulse Oximetry (%) 100 05/29/19 10:00 Constitutional: Calm Eyes: No: Sclera Icterus Cardiovascular: Yes: Regular Rate and Rhythm Respiratory: Yes: Diminished (at bases b/l, poor insp effort) Gastrointestinal Inspection: Yes: Hernia, Scars ...Auscultate: Yes: Normoactive Bowel Sounds ...Palpate: No: Tenderness (No grimacing upon palpation) Edema: No (No LE edema) Labs: CBC, BMP 05/29/19 06:43 05/29/19 06:43 INR, PTT INR 1.27 (0.83-1.09) H 05/28/19 15:58 Problem List - Problems (1) Dislodged jejunostomy tube Assessment/Plan: Evaluated by surgery and recommendations for replacement made Code(s): T85.528A - DISPLACEMENT OF GASTROINTESTINAL PROSTH DEV/GRFT, INIT (2) Leukocytosis Assessment/Plan: PNA, ? ileitis On Abx per ID Code(s): D72.829 - ELEVATED WHITE BLOOD CELL COUNT, UNSPECIFIED (3) Fecal impaction Assessment/Plan: MiraLAX 17g BID via G-Tube Mineral oil enema daily for 3 days Code(s): K56.41 - FECAL IMPACTION
--- NOTE | 2019-05-29 19:18 | CON.NEURO ---
Consult Consult Specialty:: Dionisio Referred by:: ER Reason for Consultation:: PD - History of Present Illness History of Present Illness: This is a 68-year-old right-handed very sad case with multiple medical problem including history of intellectual disability history ofcerebral palsy history of questionable Parkinson's disease history of seizure disorder on lamotrigine patient came in from the long term with the displacement of the GT tube where he gets the feeding and the medication through. Neurology was called to evaluate the patient. 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 No: Sleep Apnea - Past Surgical History Additional Surgical History: gastrostomy, Jejunostomy - Alcohol/Substance Use Hx Alcohol Use: No History of Substance Use: reports: None - Smoking History Smoking history: Unknown if ever smoked Have you smoked in the past 12 months: No - Social History ADL: Support Services History of Recent Travel: No Home Medications - Allergies Allergies/Adverse Reactions: Allergies Allergy/AdvReac Type Severity Reaction Status Date / Time No Known Allergies Allergy Verified 05/28/19 06:56 - Home Medications Home Medications: Ambulatory Orders Acetaminophen 650 mg GT Q6H 05/20/19 Budesonide [Pulmicort 0.25 mg Nebulizer -] 1 neb IH BID 05/20/19 Clorazepate Dipotassium 3.75 mg GT HS 05/20/19 Heparin - 5,000 unit SQ BID 05/20/19 Ipratropium/Albuterol Sulfate [Iprat-Albut 0.5-3(2.5) mg/3 ml] 3 ml IH QID 05/20 Lamotrigine [Lamictal -] 50 mg GT BID 05/20/19 Omeprazole Pediatric Solution [Omeprazole Pediatric Oral Solution] 20 ml GT DAILY 05/20/19 Prednisone 10 mg GT DAILY 05/20/19 Sod Phos Di, Blanco/K Phos Blanco [Phospha 250 Neutral Tablet] 250 mg GT BID Ferrous Sulfate [Feosol] 300 mg GT DAILY udc 05/22/19 Cinacalcet HCl [Sensipar] 60 mg GT DAILY 05/28/19 Family Medical History Family History: Unable to Obtain Review of Systems Unable to obtain ROS, reason: unable to obtain Physical Exam-Neuro Vital Signs: Vital Signs Temperature 98.1 F 05/29/19 18:26 Pulse Rate 87 05/29/19 18:26 Respiratory Rate 14 05/29/19 18:26 Blood Pressure 138/94 05/29/19 18:26 O2 Sat by Pulse Oximetry (%) 100 05/29/19 10:00 Constitutional: Yes: Well Nourished Labs: CBC, BMP 05/29/19 06:43 05/29/19 06:43 INR, PTT INR 1.27 (0.83-1.09) H 05/28/19 15:58 - Neuro Exam Level Of Consciousness: Yes: Alert Problem List - Problems (1) Cerebral palsy Code(s): G80.9 - CEREBRAL PALSY, UNSPECIFIED (2) Parkinson disease Code(s): G20 - PARKINSON'S DISEASE Assessment/Plan cannot start any medication until be placement of the GT tube physical therapy blood work Follow-up with gastroenterology Sarwat Nichole M.D., MSc [facility] [address] [place] [address] Office
[2019-05-30] MEDS: POLYETHYLENE GLYCOL 3350 119 GM BTL GT SCH ×3 (00:55→22:58)
[2019-05-30] MEDS: lamoTRIgine 25 MG TABLET NR SCH ×3 (00:55→22:58)
[2019-05-30] MEDS ORDERED: PANTOPRAZOLE SODIUM 40 MG/100 ML BAG IVPB ONE (00:56)
[2019-05-30] MEDS: PANTOPRAZOLE SODIUM 40 MG VIAL IVPUSH SCH ×3 (01:01→22:58)
[2019-05-30] MEDS ORDERED: PIPERACILLIN/TAZOB 3.375 GM 3.375 GM/50 ML BAG IVPB ONE (02:22)
[2019-05-30] MEDS: PIPERACILLIN/TAZOB 3.375 GM 3.375 GM in DEXTROSE 5%-WATER - 50 ML IVPB SCH ×3 (02:26→18:04)
[2019-05-30 06:59] LABS: BASO % 0.3 % (0-2.0); HEMATOCRIT 32.1 % (35.4-49); HEMOGLOBIN 11.2 GM/dL (11.7-16.9); LYMPH % 8.2 % (8-40); MCH 32.1 pg (25.7-33.7); MCHC 34.8 g/dl (32.0-35.9); MEAN CELL VOLUME 92.3 fl (80-96); MEAN PLT VOLUME 7.8 fl (7.5-11.1); MONO % 5.1 % (3.8-10.2); NEUT % 86.4 % (42.8-82.8); PLATELET COUNT 505 K/MM3 (134-434); RBC 3.48 M/mm3 (4.00-5.60); RDW 16.4 % (11.9-15.9); WHITE BLOOD COUNT 17.5 K/mm3 (4.0-10.0)
--- NOTE | 2019-05-30 07:16 | CONS ---
SURGICAL CONSULTATION DATE OF CONSULTATION: 05/29/2019 REASON FOR CONSULTATION: Dislodged jejunostomy tube. This is a consultation as a request by the emergency room physician. BRIEF HISTORY: This is a 68-year-old male who, according to his sister, 1 month ago had an open jejunostomy done by a surgeon at [facility] in [facility]. At that time of that admission, he also got a tracheostomy, and he required a gastrostomy for decompression of his stomach. He has cerebral palsy and aspiration risk, and this was the end stage of his disease process. Because of the tracheostomy, he required being sent to a different [facility], which was now in [place], and now his hospital choice is [facility]. He was here May 08 with a G-tube that was dislodged. It was replaced by the Interventional Radiology service. He was admitted on May 20 for a dislodged jejunostomy tube. He was here again on May 27 again with a dislodged jejunostomy tube and then he came in yesterday with, again, a dislodged jejunostomy tube. I spoke with Dr. Guy of Interventional Radiology service. He stated that the jejunostomy tube is not salvable as the bowel is no longer fixed to the abdominal wall and that he is unable to redo the fistula tract. He was able to replace the gastrostomy tube in one of his previous admissions but not the jejunostomy. Request was made for surgical evaluation to replace the jejunostomy. PAST MEDICAL HISTORY: Significant for cerebral palsy, Parkinson's, COPD, ventilator dependent on a tracheostomy, COPD. SOCIAL HISTORY: Unknown. ALLERGIES: No known drug allergies. MEDICATIONS: Include Pulmicort, Tylenol, Clorazepate, subcutaneous heparin prophylaxis, albumin, Lamictal, Prilosec, prednisone, iron, and Sensipar. REVIEW OF SYSTEMS: Unobtainable. PHYSICAL EXAMINATION: General: This is a contorted 68-year-old male with a tracheostomy. Vital Signs: He is afebrile. His vital signs are stable. HEENT: His head is normocephalic. Sclerae anicteric. Neck: Supple. Chest: Clear. Abdomen: Softly distended. He has a large hernia in the upper portion of his abdomen with likely loss of domain. He has an old, well-healed incision over this hernia. Below it, there is approximately a 2-inch incision that appears to be fresh scar. He has perhaps laparoscopic nancy, so it is difficult to tell. He is nontender. Extremities: Edema. DIAGNOSTIC DATA: Review of his laboratories, white blood cell count is 14,000, his albumin is 2.4. Review of his most recent imaging, he has a CAT scan of his abdomen and pelvis on May 28. This shows that an attempt at a replacement of the jejunostomy tube by the ER showed the tip was not in the bowel and there was some free contrast seen in the surrounding peritoneum. There are also 2 small densities within the small bowel that could have been sheared tips of previous jejunostomies. There is also a mention of some thickening of the ileum and some mildly dilated small bowel loops. ASSESSMENT: This is a 68-year-old male with multiple medical problems who currently plans to have jejunostomy feeds and gastrostomy for drainage. This is presumably for aspiration risk. His jejunostomy is lost currently and cannot be retrieved by the interventional radiologist. Surgery would be possible, but it would be best to wait since, according to his sister, he had an open surgical procedure 1 month ago. I see a small cut. Perhaps the procedure was done laparoscopically. It is unclear. In either event, it would be best to wait at least 2 more weeks before considering re-entering the abdomen especially with a loss of domain in the upper part of his abdomen and a large hernia. I have spoken with the interventional radiologist, and he feels he could convert the gastrostomy tube into a gastrojejunostomy tube with 2 ports, 1 for suction and 1 going further downstream for feeds. However, he would not want to attempt this for at least another week in order to allow his recent tract into the stomach to heal and fix the stomach better against the abdominal wall. In the meantime, patient likely has a mild ileus. The contrast seen that freely extravasated should not be of clinical concern as it is designed to go into the abdominal cavity in case it does leak. The actual hole in the jejunum is closed, and there should be no spillage of succus. I suspect between the set manipulation of the tube caused a window to get into the abdominal cavity, which by now will have already sealed. Recommend attempt at feeds through the gastrostomy tube if it is felt the patient could tolerate. If he cannot, then would recommend starting TPN. If after a week the IR service is unable to create a G-J tube, at that point could consider surgical jejunostomy 1 week after that. Perhaps a better solution should be found to jejunostomies as the patient has already managed to present to [facility] 4 times for dislodged tubes, and perhaps these tubes are unable to be managed properly in this patient at the [facility]. It would be unfortunate for the patient to require exploratory surgery once a month for the rest of his life. Currently, no emergent surgical intervention is required. DO LEANNE HUIZAR/[id number]
[2019-05-30 07:39] LABS: ALBUMIN 2.4 g/dl (3.4-5.0); BILIRUBIN,TOTAL 0.8 mg/dL (0.2-1); BLOOD UREA NITROGEN 32.8 mg/dL (7-18); CALCIUM 11.4 mg/dL (8.5-10.1); CREATININE 1.1 mg/dL (0.55-1.3); POTASSIUM 4.2 mmol/L (3.5-5.1); TOT PROT 7.1 g/dl (6.4-8.2)
--- NOTE | 2019-05-30 08:15 | PN.GI ---
GI Progress Note Subjective: STATUS UNCHANGED - Objective Vital Signs: Vital Signs Temperature 98.1 F 05/29/19 18:26 Pulse Rate 98 H 05/30/19 06:04 Respiratory Rate 16 05/30/19 06:04 Blood Pressure 143/88 05/30/19 06:04 O2 Sat by Pulse Oximetry (%) 100 05/30/19 07:51 Constitutional: Well Nourished, No Distress, Calm Cardiovascular: Yes: WNL, Regular Rate and Rhythm Respiratory: Yes: WNL, Regular, CTA Bilaterally Gastrointestinal Inspection: Yes: WNL ...Auscultate: Yes: Normoactive Bowel Sounds Edema: No Labs: CBC, BMP 05/30/19 06:10 05/30/19 06:10 INR, PTT INR 1.27 (0.83-1.09) H 05/28/19 15:58 Problem List - Problems (1) Bowel obstruction Assessment/Plan: C/W ENEMAS BOWEL REGIMEN IR GUIDED FEEDING TUBE REPLACEMENT Code(s): K56.609 - UNSP INTESTNL OBST, UNSP TO PARTIAL VERSUS COMPLETE OBST Qualifiers: Intestinal obstruction type: unspecified Intestinal obstruction extent: unspecified extent Qualified Code(s): K56.609 - Unspecified intestinal obstruction, unspecified as to partial versus complete obstruction (2) Dislodged jejunostomy tube Code(s): T85.528A - DISPLACEMENT OF GASTROINTESTINAL PROSTH DEV/GRFT, INIT (3) Leukocytosis Code(s): D72.829 - ELEVATED WHITE BLOOD CELL COUNT, UNSPECIFIED (4) Pneumonia Code(s): J18.9 - PNEUMONIA, UNSPECIFIED ORGANISM
[2019-05-30] MEDS ORDERED: ALBUTEROL SO4 2.5/IPRATROPIUM 0.5 INH SOL 3 ML VIAL.NEB. NEB ONE (08:30)
[2019-05-30] MEDS: BUDESONIDE 0.25 MG/2ML INH SUSP VIAL NEB SCH ×2 (08:44→21:38)
[2019-05-30] MEDS: ALBUTEROL SO4 2.5/IPRATROPIUM 0.5 INH SOL 3 ML VIAL.NEB. NEB SCH ×4 (08:44→21:38)
[2019-05-30] MEDS: CINACALCET HCL 30 MG TAB (FP) PO SCH (09:56)
--- NOTE | 2019-05-30 09:58 | PN ---
Progress Note, Physician - Current Medication List Current Medications: Active Medications Albuterol/Ipratropium (Duoneb -) 1 amp NEB RQID [facility] Last Admin: 05/30/19 08:44 Dose: 1 amp Budesonide (Pulmicort 0.25 Mg Nebulizer -) 1 amp NEB RBID [facility] Last Admin: 05/30/19 08:44 Dose: 1 amp Cinacalcet (Sensipar -) 60 mg PO DAILY [facility] Last Admin: 05/30/19 09:56 Dose: 60 mg Potassium Chloride/Dextrose/Sod Cl (D5-1/2ns+20 Meq Kcl -) 20 meq in 1,000 mls @ 75 mls/hr IV ASDIR [facility] Last Admin: 05/29/19 16:28 Dose: 75 mls/hr Piperacillin Sod/Tazobactam (Sod 3.375 gm/ Dextrose) 50 mls @ 100 mls/hr IVPB Q8H-IV [facility]; Protocol Last Admin: 05/30/19 02:26 Dose: 100 mls/hr Lamotrigine (Lamictal -) 50 mg NR BID [facility] Last Admin: 05/30/19 09:56 Dose: 50 mg Mineral Oil (Fleet Mineral Oil Rectal Enema -) 133 ml [place] DAILY [facility] Stop: 06/02/19 09:59 Pantoprazole Sodium (Protonix Iv) 40 mg IVPUSH BID [facility] Last Admin: 05/30/19 09:55 Dose: 40 mg Polyethylene Glycol (Miralax (For Daily Use) -) 17 gm GT BID [facility] Last Admin: 05/30/19 09:55 Dose: 17 gm - Objective Vital Signs: Vital Signs Temperature 98.1 F 05/29/19 18:26 Pulse Rate 98 H 05/30/19 06:04 Respiratory Rate 16 05/30/19 08:42 Blood Pressure 143/88 05/30/19 06:04 O2 Sat by Pulse Oximetry (%) 100 05/30/19 07:51 Cardiovascular: Yes: S1, S2 Respiratory: Yes: Mechanically Ventilated Gastrointestinal: Yes: Normal Bowel Sounds, Soft, Distention Labs: CBC, BMP 05/30/19 06:10 05/30/19 06:10 INR, PTT INR 1.27 (0.83-1.09) H 05/28/19 15:58 Problem List - Problems (1) Bowel obstruction Assessment/Plan: Questionable NPO GI noted SURGICAL CONSULTS PENDING IVF Code(s): K56.609 - UNSP INTESTNL OBST, UNSP TO PARTIAL VERSUS COMPLETE OBST Qualifiers: Intestinal obstruction type: unspecified Intestinal obstruction extent: unspecified extent Qualified Code(s): K56.609 - Unspecified intestinal obstruction, unspecified as to partial versus complete obstruction (2) Dislodged jejunostomy tube Assessment/Plan: USED FOR FEEDINGS--ON HOLD NOW GT TUBE FOR SUCTIONING CT scan revealed question of ileitis, bibasilar consolidations with air bronchograms, rectosigmoid fecal impaction, G-tube in stomach. It appears as though attempt was made at placement of J-Tube. Repeat CT scan noted it to be extraluminal with extravasation of contrast. It also revealed two short tubular densities within a small bowel loop. surgical consult Code(s): T85.528A - DISPLACEMENT OF GASTROINTESTINAL PROSTH DEV/GRFT, INIT (3) Chronic respiratory failure Assessment/Plan: vent pulm consult Code(s): J96.10 - CHRONIC RESPIRATORY FAILURE, UNSP W HYPOXIA OR HYPERCAPNIA (4) COPD (chronic obstructive pulmonary disease) Code(s): J44.9 - CHRONIC OBSTRUCTIVE PULMONARY DISEASE, UNSPECIFIED (5) Leukocytosis Assessment/Plan: r/o aspiration--CXR cultures iv abx id consult LACTIC ACID 2.1--REPEAT Code(s): D72.829 - ELEVATED WHITE BLOOD CELL COUNT, UNSPECIFIED (6) Anemia Assessment/Plan: W/U ORDERED MONITOR Code(s): D64.9 - ANEMIA, UNSPECIFIED (7) Cerebral palsy Assessment/Plan: NEURO Code(s): G80.9 - CEREBRAL PALSY, UNSPECIFIED
[2019-05-30] MEDS: MINERAL OIL ENEMA 133 ML ENEMA PR SCH (12:08)
--- NOTE | 2019-05-30 14:17 | PN ---
Progress Note (short form) - Note Progress Note: Awake on AC Mode of vent, 40% FiO2. Not able to follow commands. No acute events overnight. Intake & Output 05/27/19 05/28/19 05/29/19 05/30/19 23:59 23:59 23:59 23:59 Intake Total 1025 Balance 1025 Weight 138 lb 123 lb 3.2 oz Last Vital Signs Temp Pulse Resp BP Pulse Ox 97.8 F 99 H 12 118/84 100 05/30/19 13:23 05/30/19 13:23 05/30/19 13:23 05/30/19 13:23 05/30/19 13:39 Active Medications Albuterol/Ipratropium (Duoneb -) 1 amp NEB RQID [facility] Last Admin: 05/30/19 12:36 Dose: 1 amp Budesonide (Pulmicort 0.25 Mg Nebulizer -) 1 amp NEB RBID [facility] Last Admin: 05/30/19 08:44 Dose: 1 amp Cinacalcet (Sensipar -) 60 mg PO DAILY [facility] Last Admin: 05/30/19 09:56 Dose: 60 mg Potassium Chloride/Dextrose/Sod Cl (D5-1/2ns+20 Meq Kcl -) 20 meq in 1,000 mls @ 75 mls/hr IV ASDIR [facility] Last Admin: 05/29/19 16:28 Dose: 75 mls/hr Piperacillin Sod/Tazobactam (Sod 3.375 gm/ Dextrose) 50 mls @ 100 mls/hr IVPB Q8H-IV [facility]; Protocol Last Admin: 05/30/19 11:00 Dose: 100 mls/hr Lamotrigine (Lamictal -) 50 mg NR BID [facility] Last Admin: 05/30/19 09:56 Dose: 50 mg Mineral Oil (Fleet Mineral Oil Rectal Enema -) 133 ml [place] DAILY [facility] Stop: 06/02/19 09:59 Last Admin: 05/30/19 12:08 Dose: Not Given Pantoprazole Sodium (Protonix Iv) 40 mg IVPUSH BID [facility] Last Admin: 05/30/19 09:55 Dose: 40 mg Polyethylene Glycol (Miralax (For Daily Use) -) 17 gm GT BID [facility] Last Admin: 05/30/19 09:55 Dose: 17 gm Constitutional: Yes: No Distress, Thin, vented Eyes: Yes: Conjunctiva Clear, EOM Intact HENT: Yes: Atraumatic, Normocephalic, Other (Trach intact ) Cardiovascular: Yes: Regular Rate and Rhythm Respiratory: Yes: Diminished, Mechanically Ventilated, Rhonchi. No: Accessory Muscle Use, SOB, SOB on Exertion, Stridor, Tachypnea, Wheezes ...Inspection: Yes: WNL ...Clubbing: No Gastrointestinal: Yes: Normal Bowel Sounds, Soft Musculoskeletal: Yes: WNL Extremities: Yes: WNL Edema: No Peripheral Pulses WNL: Yes Neurological: Yes: Non-verbal Labs: Laboratory Results - last 24 hr 05/29/19 05/30/19 05/30/19 06:43 06:10 06:10 WBC 17.5 H RBC 3.48 L Hgb 11.2 L Hct 32.1 L D MCV 92.3 MCH 32.1 MCHC 34.8 RDW 16.4 H Plt Count 505 H D MPV 7.8 Absolute Neuts (auto) 15.1 H Neutrophils % 86.4 H Lymphocytes % 8.2 D Monocytes % 5.1 D Eosinophils % 0.0 Basophils % 0.3 Nucleated RBC % 0 Sodium 133 L 132 L Potassium 3.8 4.2 Chloride 97 L 99 Carbon Dioxide 27 24 Anion Gap 9 9 BUN 29.6 H 32.8 H Creatinine 1.2 1.1 Est GFR (CKD-EPI)AfAm 71.58 79.52 Est GFR (CKD-EPI)NonAf 61.76 68.61 Random Glucose 139 H 145 H Calcium 10.8 H 11.4 H Magnesium 2.1 Iron 24 L TIBC 220 L Iron Saturation 10 L Unsaturated IBC 196 L Ferritin 375.1 Total Bilirubin 1.5 H 0.8 AST 11 L 9 L ALT 16 14 Alkaline Phosphatase 79 73 Total Protein 7.2 7.1 Albumin 2.4 L 2.4 L Vitamin B12 388 Serum Folate 40 H Problem List - Problems (1) Pleural effusion Code(s): J90 - PLEURAL EFFUSION, NOT ELSEWHERE CLASSIFIED (2) Anemia Code(s): D64.9 - ANEMIA, UNSPECIFIED (3) Dislodged jejunostomy tube Code(s): T85.528A - DISPLACEMENT OF GASTROINTESTINAL PROSTH DEV/GRFT, INIT (4) Ileitis Code(s): K52.9 - NONINFECTIVE GASTROENTERITIS AND COLITIS, UNSPECIFIED (5) Leukocytosis Code(s): D72.829 - ELEVATED WHITE BLOOD CELL COUNT, UNSPECIFIED (6) Pneumonia Code(s): J18.9 - PNEUMONIA, UNSPECIFIED ORGANISM (7) COPD (chronic obstructive pulmonary disease) Code(s): J44.9 - CHRONIC OBSTRUCTIVE PULMONARY DISEASE, UNSPECIFIED (8) Chronic respiratory failure Code(s): J96.10 - CHRONIC RESPIRATORY FAILURE, UNSP W HYPOXIA OR HYPERCAPNIA (9) Functional quadriplegia Code(s): R53.2 - FUNCTIONAL QUADRIPLEGIA (10) Parkinson disease Code(s): G20 - PARKINSON'S DISEASE Assessment/Plan AC Mode of vent ABX coverage per ID Follow culture VTE prophylaxis Monitor off systemic steroids for now BD TX PRN Vent floor monitoring Dr Alexandre Problem List - Problems (1) Pleural effusion Code(s): J90 - PLEURAL EFFUSION, NOT ELSEWHERE CLASSIFIED (2) Anemia Code(s): D64.9 - ANEMIA, UNSPECIFIED (3) Dislodged jejunostomy tube Code(s): T85.528A - DISPLACEMENT OF GASTROINTESTINAL PROSTH DEV/GRFT, INIT (4) Ileitis Code(s): K52.9 - NONINFECTIVE GASTROENTERITIS AND COLITIS, UNSPECIFIED (5) Leukocytosis Code(s): D72.829 - ELEVATED WHITE BLOOD CELL COUNT, UNSPECIFIED (6) Pneumonia Code(s): J18.9 - PNEUMONIA, UNSPECIFIED ORGANISM (7) COPD (chronic obstructive pulmonary disease) Code(s): J44.9 - CHRONIC OBSTRUCTIVE PULMONARY DISEASE, UNSPECIFIED (8) Chronic respiratory failure Code(s): J96.10 - CHRONIC RESPIRATORY FAILURE, UNSP W HYPOXIA OR HYPERCAPNIA (9) Functional quadriplegia Code(s): R53.2 - FUNCTIONAL QUADRIPLEGIA (10) Parkinson disease Code(s): G20 - PARKINSON'S DISEASE
[2019-05-30] MEDS ORDERED: PIPERACILLIN/TAZOBACTAM 3.375 GM VIAL IVPB ONE (17:42)
[2019-05-30] MEDS ORDERED: DEXTROSE 5%-WATER - 50 ML IVPB ONE (17:43)
[2019-05-30] MEDS: D5-1/2NS+20 MEQ KCL - 20 MEQ/1,000 ML INFUS.BAG IV SCH (18:03)
[2019-05-30] MEDS ORDERED: BUDESONIDE 0.5 MG/2 ML INH SUSP VIAL NEB ONE (21:22)
[2019-05-31] MEDS ORDERED: PIPERACILLIN/TAZOBACTAM 3.375 GM VIAL IVPB ONE ×3 (02:10→17:13)
[2019-05-31] MEDS ORDERED: DEXTROSE 5%-WATER - 50 ML IVPB ONE ×3 (02:10→17:13)
[2019-05-31] MEDS: PIPERACILLIN/TAZOB 3.375 GM 3.375 GM in DEXTROSE 5%-WATER - 50 ML IVPB SCH ×3 (02:25→17:19)
[2019-05-31] MEDS: BUDESONIDE 0.25 MG/2ML INH SUSP VIAL NEB SCH ×2 (07:50→20:29)
[2019-05-31] MEDS: ALBUTEROL SO4 2.5/IPRATROPIUM 0.5 INH SOL 3 ML VIAL.NEB. NEB SCH ×4 (07:50→20:29)
[2019-05-31 09:22] LABS: BASO % 0.3 % (0-2.0); EOS % 0.2 % (0-4.5); HEMOGLOBIN 8.8 GM/dL (11.7-16.9); LYMPH % 15.6 % (8-40); MCH 31.7 pg (25.7-33.7); MEAN CELL VOLUME 93.2 fl (80-96); MONO % 6.6 % (3.8-10.2); NEUT % 77.3 % (42.8-82.8); PLATELET COUNT 370 K/MM3 (134-434); RBC 2.79 M/mm3 (4.00-5.60); RDW 16.2 % (11.9-15.9); WHITE BLOOD COUNT 11.2 K/mm3 (4.0-10.0)
[2019-05-31 09:49] LABS: ALBUMIN 2.2 g/dl (3.4-5.0); BILIRUBIN,TOTAL 0.6 mg/dL (0.2-1); BLOOD UREA NITROGEN 31.6 mg/dL (7-18); CALCIUM 10.6 mg/dL (8.5-10.1); CREATININE 1.2 mg/dL (0.55-1.3); TOT PROT 6.1 g/dl (6.4-8.2)
--- NOTE | 2019-05-31 10:37 | PN ---
Progress Note, Physician - Current Medication List Current Medications: Active Medications Albuterol/Ipratropium (Duoneb -) 1 amp NEB RQID [facility] Last Admin: 05/31/19 07:50 Dose: 1 amp Budesonide (Pulmicort 0.25 Mg Nebulizer -) 1 amp NEB RBID [facility] Last Admin: 05/31/19 07:50 Dose: 1 amp Cinacalcet (Sensipar -) 60 mg PO DAILY [facility] Last Admin: 05/30/19 09:56 Dose: 60 mg Potassium Chloride/Dextrose/Sod Cl (D5-1/2ns+20 Meq Kcl -) 20 meq in 1,000 mls @ 75 mls/hr IV ASDIR [facility] Last Admin: 05/30/19 18:03 Dose: 75 mls/hr Piperacillin Sod/Tazobactam (Sod 3.375 gm/ Dextrose) 50 mls @ 100 mls/hr IVPB Q8H-IV [facility]; Protocol Last Admin: 05/31/19 02:25 Dose: 100 mls/hr Lamotrigine (Lamictal -) 50 mg NR BID [facility] Last Admin: 05/30/19 22:58 Dose: 50 mg Mineral Oil (Fleet Mineral Oil Rectal Enema -) 133 ml [place] DAILY [facility] Stop: 06/02/19 09:59 Last Admin: 05/30/19 12:08 Dose: Not Given Pantoprazole Sodium (Protonix Iv) 40 mg IVPUSH BID [facility] Last Admin: 05/30/19 22:58 Dose: 40 mg Polyethylene Glycol (Miralax (For Daily Use) -) 17 gm GT BID [facility] Last Admin: 05/30/19 22:58 Dose: 17 gm - Objective Vital Signs: Vital Signs Temperature 97.9 F 05/31/19 06:00 Pulse Rate 85 05/31/19 08:24 Respiratory Rate 12 05/31/19 08:22 Blood Pressure 111/64 05/31/19 06:00 O2 Sat by Pulse Oximetry (%) 96 05/31/19 08:24 Cardiovascular: Yes: S1, S2 Respiratory: Yes: Regular, CTA Bilaterally Gastrointestinal: Yes: Normal Bowel Sounds, Soft Labs: CBC, BMP 05/31/19 08:15 05/31/19 08:15 INR, PTT INR 1.27 (0.83-1.09) H 05/28/19 15:58 Problem List - Problems (1) Bowel obstruction Assessment/Plan: Questionable NPO GI noted SURGICAL CONSULTS PENDING IVF Code(s): K56.609 - UNSP INTESTNL OBST, UNSP TO PARTIAL VERSUS COMPLETE OBST Qualifiers: Intestinal obstruction type: unspecified Intestinal obstruction extent: unspecified extent Qualified Code(s): K56.609 - Unspecified intestinal obstruction, unspecified as to partial versus complete obstruction (2) Dislodged jejunostomy tube Assessment/Plan: J tube USED FOR FEEDINGS--ON HOLD NOW since tube out GT TUBE FOR SUCTIONING CT scan revealed question of ileitis, bibasilar consolidations with air bronchograms, rectosigmoid fecal impaction, G-tube in stomach. It appears as though attempt was made at placement of J-Tube. Repeat CT scan noted it to be extraluminal with extravasation of contrast. It also revealed two short tubular densities within a small bowel loop. surgical consult Code(s): T85.528A - DISPLACEMENT OF GASTROINTESTINAL PROSTH DEV/GRFT, INIT (3) Chronic respiratory failure Assessment/Plan: vent pulm consult Code(s): J96.10 - CHRONIC RESPIRATORY FAILURE, UNSP W HYPOXIA OR HYPERCAPNIA (4) COPD (chronic obstructive pulmonary disease) Code(s): J44.9 - CHRONIC OBSTRUCTIVE PULMONARY DISEASE, UNSPECIFIED (5) Leukocytosis Assessment/Plan: r/o aspiration--CXR cultures iv abx id consult LACTIC ACID 2.1--REPEAT Code(s): D72.829 - ELEVATED WHITE BLOOD CELL COUNT, UNSPECIFIED (6) Anemia Assessment/Plan: W/U ORDERED MONITOR Code(s): D64.9 - ANEMIA, UNSPECIFIED (7) Cerebral palsy Assessment/Plan: NEURO Code(s): G80.9 - CEREBRAL PALSY, UNSPECIFIED
[2019-05-31] MEDS: MINERAL OIL ENEMA 133 ML ENEMA PR SCH (11:27)
[2019-05-31] MEDS: PANTOPRAZOLE SODIUM 40 MG VIAL IVPUSH SCH ×2 (11:27→21:16)
[2019-05-31] MEDS: CINACALCET HCL 30 MG TAB (FP) PO SCH (11:27)
[2019-05-31] MEDS: POLYETHYLENE GLYCOL 3350 119 GM BTL GT SCH ×2 (11:27→21:15)
[2019-05-31] MEDS: lamoTRIgine 25 MG TABLET NR SCH ×2 (11:28→21:16)
--- NOTE | 2019-05-31 11:41 | PN ---
Progress Note (short form) - Note Progress Note: Awake on AC Mode of vent, 40% FiO2. Not able to follow commands. No acute events overnight. Intake & Output 05/28/19 05/29/19 05/30/19 05/31/19 23:59 23:59 23:59 23:59 Intake Total 1025 375 0 Output Total 320 Balance 1025 55 0 Weight 138 lb 123 lb 3.2 oz Last Vital Signs Temp Pulse Resp BP Pulse Ox 97.9 F 85 12 111/64 96 05/31/19 06:00 05/31/19 08:24 05/31/19 08:22 05/31/19 06:00 05/31/19 08:24 Active Medications Albuterol/Ipratropium (Duoneb -) 1 amp NEB RQID [facility] Last Admin: 05/31/19 07:50 Dose: 1 amp Budesonide (Pulmicort 0.25 Mg Nebulizer -) 1 amp NEB RBID [facility] Last Admin: 05/31/19 07:50 Dose: 1 amp Cinacalcet (Sensipar -) 60 mg PO DAILY [facility] Last Admin: 05/31/19 11:27 Dose: 60 mg Potassium Chloride/Dextrose/Sod Cl (D5-1/2ns+20 Meq Kcl -) 20 meq in 1,000 mls @ 75 mls/hr IV ASDIR [facility] Last Admin: 05/30/19 18:03 Dose: 75 mls/hr Piperacillin Sod/Tazobactam (Sod 3.375 gm/ Dextrose) 50 mls @ 100 mls/hr IVPB Q8H-IV [facility]; Protocol Last Admin: 05/31/19 11:28 Dose: 100 mls/hr Lamotrigine (Lamictal -) 50 mg NR BID [facility] Last Admin: 05/31/19 11:28 Dose: 50 mg Mineral Oil (Fleet Mineral Oil Rectal Enema -) 133 ml [place] DAILY [facility] Stop: 06/02/19 09:59 Last Admin: 05/31/19 11:27 Dose: 133 ml Pantoprazole Sodium (Protonix Iv) 40 mg IVPUSH BID [facility] Last Admin: 05/31/19 11:27 Dose: 40 mg Polyethylene Glycol (Miralax (For Daily Use) -) 17 gm GT BID [facility] Last Admin: 05/31/19 11:27 Dose: 17 gm Constitutional: Yes: No Distress, Thin, vented Eyes: Yes: Conjunctiva Clear, EOM Intact HENT: Yes: Atraumatic, Normocephalic, Other (Trach intact ) Cardiovascular: Yes: Regular Rate and Rhythm Respiratory: Yes: Diminished, Mechanically Ventilated, Rhonchi. No: Accessory Muscle Use, SOB, SOB on Exertion, Stridor, Tachypnea, Wheezes ...Inspection: Yes: WNL ...Clubbing: No Gastrointestinal: Yes: Normal Bowel Sounds, Soft Musculoskeletal: Yes: WNL Extremities: Yes: WNL Edema: No Peripheral Pulses WNL: Yes Neurological: Yes: Non-verbal Labs: Laboratory Results - last 24 hr 05/31/19 05/31/19 08:15 08:15 WBC 11.2 H RBC 2.79 L Hgb 8.8 L Hct 26.0 L D MCV 93.2 MCH 31.7 MCHC 34.0 RDW 16.2 H Plt Count 370 D MPV 8.0 Absolute Neuts (auto) 8.7 H Neutrophils % 77.3 Lymphocytes % 15.6 D Monocytes % 6.6 Eosinophils % 0.2 D Basophils % 0.3 Nucleated RBC % 0 Sodium 131 L Potassium 4.0 Chloride 99 Carbon Dioxide 24 Anion Gap 9 BUN 31.6 H Creatinine 1.2 Est GFR (CKD-EPI)AfAm 71.58 Est GFR (CKD-EPI)NonAf 61.76 Random Glucose 100 Calcium 10.6 H Total Bilirubin 0.6 AST 9 L ALT 10 L Alkaline Phosphatase 59 Total Protein 6.1 L Albumin 2.2 L Problem List - Problems (1) Pleural effusion Code(s): J90 - PLEURAL EFFUSION, NOT ELSEWHERE CLASSIFIED (2) Anemia Code(s): D64.9 - ANEMIA, UNSPECIFIED (3) Dislodged jejunostomy tube Code(s): T85.528A - DISPLACEMENT OF GASTROINTESTINAL PROSTH DEV/GRFT, INIT (4) Ileitis Code(s): K52.9 - NONINFECTIVE GASTROENTERITIS AND COLITIS, UNSPECIFIED (5) Leukocytosis Code(s): D72.829 - ELEVATED WHITE BLOOD CELL COUNT, UNSPECIFIED (6) Pneumonia Code(s): J18.9 - PNEUMONIA, UNSPECIFIED ORGANISM (7) COPD (chronic obstructive pulmonary disease) Code(s): J44.9 - CHRONIC OBSTRUCTIVE PULMONARY DISEASE, UNSPECIFIED (8) Chronic respiratory failure Code(s): J96.10 - CHRONIC RESPIRATORY FAILURE, UNSP W HYPOXIA OR HYPERCAPNIA (9) Functional quadriplegia Code(s): R53.2 - FUNCTIONAL QUADRIPLEGIA (10) Parkinson disease Code(s): G20 - PARKINSON'S DISEASE Assessment/Plan AC Mode of vent ABX coverage per ID Follow culture VTE prophylaxis Monitor off systemic steroids for now BD TX PRN Dr Alexandre Problem List - Problems (1) Pleural effusion Code(s): J90 - PLEURAL EFFUSION, NOT ELSEWHERE CLASSIFIED (2) Anemia Code(s): D64.9 - ANEMIA, UNSPECIFIED (3) Dislodged jejunostomy tube Code(s): T85.528A - DISPLACEMENT OF GASTROINTESTINAL PROSTH DEV/GRFT, INIT (4) Ileitis Code(s): K52.9 - NONINFECTIVE GASTROENTERITIS AND COLITIS, UNSPECIFIED (5) Leukocytosis Code(s): D72.829 - ELEVATED WHITE BLOOD CELL COUNT, UNSPECIFIED (6) Pneumonia Code(s): J18.9 - PNEUMONIA, UNSPECIFIED ORGANISM (7) COPD (chronic obstructive pulmonary disease) Code(s): J44.9 - CHRONIC OBSTRUCTIVE PULMONARY DISEASE, UNSPECIFIED (8) Chronic respiratory failure Code(s): J96.10 - CHRONIC RESPIRATORY FAILURE, UNSP W HYPOXIA OR HYPERCAPNIA (9) Functional quadriplegia Code(s): R53.2 - FUNCTIONAL QUADRIPLEGIA (10) Parkinson disease Code(s): G20 - PARKINSON'S DISEASE
[2019-05-31 12:04] LABS: ANISOCYTOSIS 0; MACROCYTOSIS 0
[2019-05-31 13:21] LABS: PLATELET ESTIMATE SLT INCREASE
[2019-05-31] MEDS ORDERED: PT OWN MED DRAWER 7, Y5N ONE ×2 (14:44→21:04)
[2019-05-31] MEDS: AMINO ACIDS 4.25%/D5W 1,000 ML IV SCH (15:10)
[2019-05-31 15:37] VITALS: BMI 22.4
--- NOTE | 2019-05-31 17:30 | PN.GI ---
GI Progress Note Subjective: NO NEW COMPLAINTS - Objective Vital Signs: Vital Signs Temperature 98.0 F 05/31/19 14:00 Pulse Rate 95 H 05/31/19 14:00 Respiratory Rate 18 05/31/19 16:11 Blood Pressure 126/55 L 05/31/19 14:00 O2 Sat by Pulse Oximetry (%) 95 05/31/19 16:11 Constitutional: Well Nourished, Calm Cardiovascular: Yes: WNL, Regular Rate and Rhythm Respiratory: Yes: WNL, Regular Gastrointestinal Inspection: Yes: WNL ...Auscultate: Yes: Normoactive Bowel Sounds Edema: No Labs: CBC, BMP 05/31/19 08:15 05/31/19 08:15 INR, PTT INR 1.27 (0.83-1.09) H 05/28/19 15:58 Problem List - Problems (1) Bowel obstruction Assessment/Plan: C/W ENEMAS BOWEL REGIMEN IR GUIDED FEEDING TUBE REPLACEMENT Code(s): K56.609 - UNSP INTESTNL OBST, UNSP TO PARTIAL VERSUS COMPLETE OBST Qualifiers: Intestinal obstruction type: unspecified Intestinal obstruction extent: unspecified extent Qualified Code(s): K56.609 - Unspecified intestinal obstruction, unspecified as to partial versus complete obstruction (2) Dislodged jejunostomy tube Code(s): T85.528A - DISPLACEMENT OF GASTROINTESTINAL PROSTH DEV/GRFT, INIT (3) Leukocytosis Code(s): D72.829 - ELEVATED WHITE BLOOD CELL COUNT, UNSPECIFIED (4) Pneumonia Code(s): J18.9 - PNEUMONIA, UNSPECIFIED ORGANISM
[2019-05-31] MEDS: FAT EMULSIONS 500 ML IV SCH (21:14)
[2019-05-31] MEDS ORDERED: FAT EMULSIONS 20% 500 ML PREMIX INFUS.BAG IV SCH (22:00)
[2019-06-01] MEDS ORDERED: PIPERACILLIN/TAZOBACTAM 3.375 GM VIAL IVPB ONE ×3 (01:55→18:39)
[2019-06-01] MEDS ORDERED: DEXTROSE 5%-WATER - 50 ML IVPB ONE ×3 (01:55→18:39)
[2019-06-01] MEDS: PIPERACILLIN/TAZOB 3.375 GM 3.375 GM in DEXTROSE 5%-WATER - 50 ML IVPB SCH ×3 (02:40→18:53)
[2019-06-01] MEDS: AMINO ACIDS 4.25%/D5W 1,000 ML IV SCH ×2 (04:35→14:23)
--- NOTE | 2019-06-01 07:03 | PN.GI ---
GI Progress Note Subjective: ABDOMINAL DISTENSION REPORTED BY RN - Objective Vital Signs: Vital Signs Temperature 97.5 F L 06/01/19 06:00 Pulse Rate 85 06/01/19 06:00 Respiratory Rate 18 06/01/19 06:00 Blood Pressure 151/80 06/01/19 06:00 O2 Sat by Pulse Oximetry (%) 95 05/31/19 16:11 Constitutional: Well Nourished, No Distress, Calm Respiratory: Yes: WNL Gastrointestinal Inspection: Yes: WNL, Other (TYMPANITIC/ BOWEL SOUNDS / NOT TENDER / TUBE IN PLACE) Labs: CBC, BMP 05/31/19 08:15 05/31/19 08:15 INR, PTT INR 1.27 (0.83-1.09) H 05/28/19 15:58 Problem List - Problems (1) Bowel obstruction Assessment/Plan: AXR REVIEWED 06/01 -- SBO TUBE PLACED ON VENTING HOLD MIRALAX C/W ENEMAS AND SUPPOSITORY IR GUIDED FEEDING TUBE REPLACEMENT SURGERY F/U Code(s): K56.609 - UNSP INTESTNL OBST, UNSP TO PARTIAL VERSUS COMPLETE OBST Qualifiers: Intestinal obstruction type: unspecified Intestinal obstruction extent: unspecified extent Qualified Code(s): K56.609 - Unspecified intestinal obstruction, unspecified as to partial versus complete obstruction (2) Dislodged jejunostomy tube Code(s): T85.528A - DISPLACEMENT OF GASTROINTESTINAL PROSTH DEV/GRFT, INIT (3) Leukocytosis Code(s): D72.829 - ELEVATED WHITE BLOOD CELL COUNT, UNSPECIFIED (4) Pneumonia Code(s): J18.9 - PNEUMONIA, UNSPECIFIED ORGANISM
[2019-06-01] MEDS: ALBUTEROL SO4 2.5/IPRATROPIUM 0.5 INH SOL 3 ML VIAL.NEB. NEB SCH ×4 (07:30→19:54)
[2019-06-01] MEDS: BUDESONIDE 0.25 MG/2ML INH SUSP VIAL NEB SCH ×2 (07:30→19:55)
[2019-06-01] MEDS: MINERAL OIL ENEMA 133 ML ENEMA PR SCH (10:04)
[2019-06-01] MEDS: PANTOPRAZOLE SODIUM 40 MG VIAL IVPUSH SCH (10:14)
--- NOTE | 2019-06-01 10:55 | PN ---
Progress Note (short form) - Note Progress Note: Awake on AC Mode of vent, 40% FiO2. Copious secretions and possible gastric content. Abdomen appears more distended than yesterday. Intake & Output 05/29/19 05/30/19 05/31/19 06/01/19 23:59 23:59 23:59 23:59 Intake Total 1025 375 600 0 Output Total 320 200 Balance 1025 55 600 -200 Weight 123 lb 3.2 oz 123 lb Last Vital Signs Temp Pulse Resp BP Pulse Ox 97.5 F L 78 17 151/80 99 06/01/19 06:00 06/01/19 08:14 06/01/19 08:15 06/01/19 06:00 06/01/19 08:14 Active Medications Albuterol/Ipratropium (Duoneb -) 1 amp NEB RQID [facility] Last Admin: 05/31/19 20:29 Dose: 1 amp Budesonide (Pulmicort 0.25 Mg Nebulizer -) 1 amp NEB RBID [facility] Last Admin: 05/31/19 20:29 Dose: 1 amp Cinacalcet (Sensipar -) 60 mg PO DAILY [facility] Last Admin: 05/31/19 11:27 Dose: 60 mg Piperacillin Sod/Tazobactam (Sod 3.375 gm/ Dextrose) 50 mls @ 100 mls/hr IVPB Q8H-IV [facility]; Protocol Last Admin: 06/01/19 10:18 Dose: 100 mls/hr Amino Acids (Clinimix -) 1,000 mls @ 84 mls/hr IV Q12H [facility] Last Admin: 06/01/19 04:35 Dose: 84 mls/hr Fat Emulsion Intravenous (Intralipid -) 500 mls @ 41.667 mls/hr IV DAILY@2200 [facility] Last Admin: 05/31/19 21:14 Dose: 41.667 mls/hr Lamotrigine (Lamictal -) 50 mg NR BID [facility] Last Admin: 05/31/19 21:16 Dose: 50 mg Mineral Oil (Fleet Mineral Oil Rectal Enema -) 133 ml FL DAILY [facility] Stop: 06/02/19 09:59 Last Admin: 06/01/19 10:04 Dose: 133 ml Pantoprazole Sodium (Protonix Iv) 40 mg IVPUSH BID [facility] Last Admin: 06/01/19 10:14 Dose: 40 mg Polyethylene Glycol (Miralax (For Daily Use) -) 17 gm GT BID [facility] Last Admin: 05/31/19 21:15 Dose: 17 gm Constitutional: Yes: No Distress, Thin, vented Eyes: Yes: Conjunctiva Clear, EOM Intact HENT: Yes: Atraumatic, Normocephalic, Other (Trach intact ) Cardiovascular: Yes: Regular Rate and Rhythm Respiratory: Yes: Diminished, Mechanically Ventilated, Rhonchi. No: Accessory Muscle Use, SOB, SOB on Exertion, Stridor, Tachypnea, Wheezes ...Inspection: Yes: WNL ...Clubbing: No Gastrointestinal: Yes: Distended, Soft, (+) BS Musculoskeletal: Yes: WNL Extremities: Yes: WNL Edema: No Peripheral Pulses WNL: Yes Neurological: Yes: Non-verbal Labs: Laboratory Results - last 24 hr 05/31/19 05/31/19 08:15 15:30 Neutrophils % (Manual) 73.3 Band Neutrophils % 0.0 Lymphocytes % (Manual) 15.8 D Monocytes % (Manual) 7 D Eosinophils % (Manual) 0.0 Basophils % (Manual) 0.0 Myelocytes % (Man) 4 H D Promyelocytes % (Man) 0 Blast Cells % (Manual) 0 Metamyelocytes 0 Hypochromia 0 Platelet Estimate Slt increase Polychromasia 0 Poikilocytosis 0 Anisocytosis 0 Microcytosis 0 Macrocytosis 0 Stool Occult Blood Negative Problem List - Problems (1) Pleural effusion Code(s): J90 - PLEURAL EFFUSION, NOT ELSEWHERE CLASSIFIED (2) Anemia Code(s): D64.9 - ANEMIA, UNSPECIFIED (3) Dislodged jejunostomy tube Code(s): T85.528A - DISPLACEMENT OF GASTROINTESTINAL PROSTH DEV/GRFT, INIT (4) Ileitis Code(s): K52.9 - NONINFECTIVE GASTROENTERITIS AND COLITIS, UNSPECIFIED (5) Leukocytosis Code(s): D72.829 - ELEVATED WHITE BLOOD CELL COUNT, UNSPECIFIED (6) Pneumonia Code(s): J18.9 - PNEUMONIA, UNSPECIFIED ORGANISM (7) COPD (chronic obstructive pulmonary disease) Code(s): J44.9 - CHRONIC OBSTRUCTIVE PULMONARY DISEASE, UNSPECIFIED (8) Chronic respiratory failure Code(s): J96.10 - CHRONIC RESPIRATORY FAILURE, UNSP W HYPOXIA OR HYPERCAPNIA (9) Functional quadriplegia Code(s): R53.2 - FUNCTIONAL QUADRIPLEGIA (10) Parkinson disease Code(s): G20 - PARKINSON'S DISEASE Assessment/Plan Hold Enteral feeds until the patient has been evaluated by GI AC Mode of vent ABX coverage per ID Follow culture VTE prophylaxis Monitor off systemic steroids BD TX PRN Dr Alexandre Problem List - Problems (1) Pleural effusion Code(s): J90 - PLEURAL EFFUSION, NOT ELSEWHERE CLASSIFIED (2) Anemia Code(s): D64.9 - ANEMIA, UNSPECIFIED (3) Dislodged jejunostomy tube Code(s): T85.528A - DISPLACEMENT OF GASTROINTESTINAL PROSTH DEV/GRFT, INIT (4) Ileitis Code(s): K52.9 - NONINFECTIVE GASTROENTERITIS AND COLITIS, UNSPECIFIED (5) Leukocytosis Code(s): D72.829 - ELEVATED WHITE BLOOD CELL COUNT, UNSPECIFIED (6) Pneumonia Code(s): J18.9 - PNEUMONIA, UNSPECIFIED ORGANISM (7) COPD (chronic obstructive pulmonary disease) Code(s): J44.9 - CHRONIC OBSTRUCTIVE PULMONARY DISEASE, UNSPECIFIED (8) Chronic respiratory failure Code(s): J96.10 - CHRONIC RESPIRATORY FAILURE, UNSP W HYPOXIA OR HYPERCAPNIA (9) Functional quadriplegia Code(s): R53.2 - FUNCTIONAL QUADRIPLEGIA (10) Parkinson disease Code(s): G20 - PARKINSON'S DISEASE
[2019-06-01] MEDS: CINACALCET HCL 30 MG TAB (FP) PO SCH (11:11)
[2019-06-01] MEDS: lamoTRIgine 25 MG TABLET NR SCH (11:12)
[2019-06-01] MEDS: POLYETHYLENE GLYCOL 3350 119 GM BTL GT SCH (11:36)
--- NOTE | 2019-06-01 14:21 | PN ---
Progress Note, Physician Chief Complaint: Medicine coverage for Dr. Badillo/Dr. Melendez Admitted from [facility] with sepsis, TAM, j tube dislodgement, fecal impaction per RN, ABD more distended today, AXR confirmed SBO History of Present Illness: 68 year old male with PMH cerebral palsy, parkinsons disease, chronic respiratory failure - vent dependent, copd, jtube/gtube presents from [facility] for sepsis and j tube dislodgement - Current Medication List Current Medications: Active Medications Albuterol/Ipratropium (Duoneb -) 1 amp NEB RQID [facility] Last Admin: 06/01/19 07:30 Dose: 1 amp Bisacodyl (Dulcolax Suppository -) 10 mg RC ONCE ONE Stop: 06/02/19 06:01 Budesonide (Pulmicort 0.25 Mg Nebulizer -) 1 amp NEB RBID [facility] Last Admin: 06/01/19 07:30 Dose: 1 amp Cinacalcet (Sensipar -) 60 mg PO DAILY [facility] Last Admin: 06/01/19 11:11 Dose: 60 mg Piperacillin Sod/Tazobactam (Sod 3.375 gm/ Dextrose) 50 mls @ 100 mls/hr IVPB Q8H-IV [facility]; Protocol Last Admin: 06/01/19 10:18 Dose: 100 mls/hr Amino Acids (Clinimix -) 1,000 mls @ 84 mls/hr IV Q12H [facility] Last Admin: 06/01/19 04:35 Dose: 84 mls/hr Fat Emulsion Intravenous (Intralipid -) 500 mls @ 41.667 mls/hr IV DAILY@2200 [facility] Last Admin: 05/31/19 21:14 Dose: 41.667 mls/hr Lamotrigine (Lamictal -) 50 mg NR BID [facility] Last Admin: 06/01/19 11:12 Dose: 50 mg Pantoprazole Sodium (Protonix Iv) 40 mg IVPUSH BID [facility] Last Admin: 06/01/19 10:14 Dose: 40 mg - Objective Vital Signs: Vital Signs Temperature 97.5 F L 06/01/19 06:00 Pulse Rate 78 06/01/19 08:14 Respiratory Rate 17 06/01/19 08:15 Blood Pressure 151/80 06/01/19 06:00 O2 Sat by Pulse Oximetry (%) 99 06/01/19 08:14 Constitutional: Yes: No Distress HENT: Yes: WNL, Atraumatic Neck: Yes: Supple Cardiovascular: Yes: Regular Rate and Rhythm Respiratory: Yes: Diminished Gastrointestinal: Yes: Distention, Other (gtube) Musculoskeletal: Yes: Other (contracted) Extremities: Yes: Other (contracted) Edema: No Wound/Incision: Yes: Other Neurological: Yes: Alert Labs: CBC, BMP 05/31/19 08:15 05/31/19 08:15 INR, PTT INR 1.27 (0.83-1.09) H 05/28/19 15:58 Problem List - Problems (1) Bowel obstruction Assessment/Plan: GI following surgery following rec miralax and mineral oil enema x3 days AXR with sbo/ileus tube feeds on hold recheck KUB tomorrow NPO, IVF Problems reviewed: Yes Code(s): K56.609 - UNSP INTESTNL OBST, UNSP TO PARTIAL VERSUS COMPLETE OBST Qualifiers: Intestinal obstruction type: unspecified Intestinal obstruction extent: unspecified extent Qualified Code(s): K56.609 - Unspecified intestinal obstruction, unspecified as to partial versus complete obstruction (2) Sepsis Assessment/Plan: ID following on zosyn blood cultures from 05/28 negative afebrile Problems reviewed: Yes Code(s): A41.9 - SEPSIS, UNSPECIFIED ORGANISM (3) Hyponatremia Assessment/Plan: NA 131, pleural effusion tube feeds on hold recheck am labs Problems reviewed: Yes Code(s): E87.1 - HYPO-OSMOLALITY AND HYPONATREMIA (4) Anemia Assessment/Plan: iron deficiency anemia iron profile noted Venofer x1 stool occult negative Problems reviewed: Yes Code(s): D64.9 - ANEMIA, UNSPECIFIED Qualifiers: Anemia type: iron deficiency (5) Dislodged jejunostomy tube Assessment/Plan: GI following rec IR for jtube replacement Problems reviewed: Yes Code(s): T85.528A - DISPLACEMENT OF GASTROINTESTINAL PROSTH DEV/GRFT, INIT (6) Fecal impaction Problems reviewed: Yes Code(s): K56.41 - FECAL IMPACTION (7) Pleural effusion Assessment/Plan: pulm following vent dependent monitor sats Problems reviewed: Yes Code(s): J90 - PLEURAL EFFUSION, NOT ELSEWHERE CLASSIFIED (8) Cerebral palsy Assessment/Plan: will need correction on dispo vent, trach, will have jtube/gtube replacement for feedings Problems reviewed: Yes Code(s): G80.9 - CEREBRAL PALSY, UNSPECIFIED (9) Chronic respiratory failure Assessment/Plan: pulm following continue vent monitor sats Problems reviewed: Yes Code(s): J96.10 - CHRONIC RESPIRATORY FAILURE, UNSP W HYPOXIA OR HYPERCAPNIA (10) Parkinson disease Assessment/Plan: continue home meds Problems reviewed: Yes Code(s): G20 - PARKINSON'S DISEASE
[2019-06-01] MEDS ORDERED: IRON SUCROSE INJECTION 100 MG in SODIUM CHLORIDE 95 ML IVPB ONE (15:00)
[2019-06-01] MEDS ORDERED: PT OWN MED DRAWER 7, Y5N ONE (15:59)
--- NOTE | 2019-06-01 18:43 | HOSP ---
Subjective - Review of Symptoms Gastrointestinal: Yes: Other (dislodged GT) Physical Examination Vital Signs: Vital Signs Temperature 97.5 F L 06/01/19 14:00 Pulse Rate 106 H 06/01/19 14:00 Respiratory Rate 25 H 06/01/19 16:20 Blood Pressure 136/89 06/01/19 14:00 O2 Sat by Pulse Oximetry (%) 97 06/01/19 12:20 Gastrointestinal: Yes: Distention, Hernia, Other (GT) Labs: CBC, BMP 05/31/19 08:15 05/31/19 08:15 Hospitalist Encounter Assessment: Notified by HONG Lucero that GT became dislodges with balloon intact. Re-inserted and gastrograffin instilled for confirmation of placement. The position of GT is not clear on AXR. there is no gross extravasation of contrast identified and additional study needs to be determined (either CT or administration of additional oral contrast). Converted all medications possible to IV form and placed consult for Dr Aparicio to re-ass the placement of placement in morning. Instructed therapeutic support staff not to use GT for meds/feeding Critical Care Total Critical Care Time (in minutes): 20
[2019-06-01] MEDS ORDERED: BUDESONIDE 0.5 MG/2 ML INH SUSP VIAL NEB ONE (19:50)
[2019-06-02] MEDS: PANTOPRAZOLE SODIUM 40 MG VIAL IVPUSH SCH ×3 (01:36→22:12)
[2019-06-02] MEDS: FAT EMULSIONS 500 ML IV SCH ×2 (01:37→22:17)
[2019-06-02] MEDS ORDERED: DEXTROSE 5%-WATER - 50 ML IVPB ONE ×3 (01:39→16:46)
[2019-06-02] MEDS ORDERED: PIPERACILLIN/TAZOBACTAM 3.375 GM VIAL IVPB ONE ×3 (01:39→16:46)
[2019-06-02] MEDS: PIPERACILLIN/TAZOB 3.375 GM 3.375 GM in DEXTROSE 5%-WATER - 50 ML IVPB SCH ×3 (01:47→17:39)
[2019-06-02] MEDS: AMINO ACIDS 4.25%/D5W 1,000 ML IV SCH ×2 (02:27→15:45)
[2019-06-02] MEDS ORDERED: BISACODYL 10 MG SUPP.RECT RC ONE (06:00)
[2019-06-02] MEDS: BUDESONIDE 0.25 MG/2ML INH SUSP VIAL NEB SCH ×2 (07:25→20:20)
[2019-06-02] MEDS: ALBUTEROL SO4 2.5/IPRATROPIUM 0.5 INH SOL 3 ML VIAL.NEB. NEB SCH ×3 (07:25→15:45)
--- NOTE | 2019-06-02 08:51 | PN ---
Progress Note (short form) - Note Progress Note: Called by Mr. Bernal's nurse that G-tube dislodged and that radiologits called stating that there was question of volvulus on AXR. Nurse replaced the Gtube and instilled 3cc into the balloon. I adjusted the G-Tube, deflating it. It was able to move more freely. I instilled 6cc sterile water into the balloon. Rectal tube was placed and lavaged with sterile water. Copious liquid stool expelled. Reviewing the AXR, it appears as though the midline hernia may have been mistaken for volvulus. Ordered CT scan for follow-up and to confirm G-Tube position. Problem List - Problems (1) Dislodged jejunostomy tube Code(s): T85.528A - DISPLACEMENT OF GASTROINTESTINAL PROSTH DEV/GRFT, INIT (2) Leukocytosis Code(s): D72.829 - ELEVATED WHITE BLOOD CELL COUNT, UNSPECIFIED (3) Fecal impaction Code(s): K56.41 - FECAL IMPACTION
[2019-06-02 09:23] LABS: BASO % 0.1 % (0-2.0); EOS % 1.1 % (0-4.5); HEMATOCRIT 29.2 % (35.4-49); HEMOGLOBIN 10.1 GM/dL (11.7-16.9); LYMPH % 5.9 % (8-40); MCH 31.9 pg (25.7-33.7); MCHC 34.6 g/dl (32.0-35.9); MEAN CELL VOLUME 92.2 fl (80-96); MEAN PLT VOLUME 7.9 fl (7.5-11.1); MONO % 2.5 % (3.8-10.2); NEUT % 90.4 % (42.8-82.8); PLATELET COUNT 449 K/MM3 (134-434); RBC 3.17 M/mm3 (4.00-5.60); RDW 16.1 % (11.9-15.9); WHITE BLOOD COUNT 18.8 K/mm3 (4.0-10.0)
[2019-06-02 09:54] LABS: ALBUMIN 2.3 g/dl (3.4-5.0); BILIRUBIN,TOTAL 0.7 mg/dL (0.2-1); BLOOD UREA NITROGEN 30.4 mg/dL (7-18); CALCIUM 10.4 mg/dL (8.5-10.1); CREATININE 0.8 mg/dL (0.55-1.3); TOT PROT 6.5 g/dl (6.4-8.2)
[2019-06-02 10:00] LABS: POTASSIUM 2.5 mmol/L (3.5-5.1)
--- NOTE | 2019-06-02 10:01 | PN ---
Progress Note (short form) - Note Progress Note: Awake on AC Mode of vent, 40% FiO2. Rectal tube inserted by GI and abdomen appears distended. Intake & Output 05/30/19 05/31/19 06/01/19 06/02/19 23:59 23:59 23:59 23:59 Intake Total 755 468 0244 550 Output Total 320 350 Balance 55 600 800 550 Weight 123 lb 3.2 oz 123 lb Last Vital Signs Temp Pulse Resp BP Pulse Ox 97.7 F 85 13 131/74 97 06/02/19 07:24 06/02/19 08:15 06/02/19 08:15 06/02/19 06:00 06/02/19 08:15 Active Medications Albuterol/Ipratropium (Duoneb -) 1 amp NEB RQID [facility] Last Admin: 06/02/19 07:25 Dose: 1 amp Budesonide (Pulmicort 0.25 Mg Nebulizer -) 1 amp NEB RBID [facility] Last Admin: 06/02/19 07:25 Dose: 1 amp Cinacalcet (Sensipar -) 60 mg PO DAILY [facility] Last Admin: 06/01/19 11:11 Dose: 60 mg Piperacillin Sod/Tazobactam (Sod 3.375 gm/ Dextrose) 50 mls @ 100 mls/hr IVPB Q8H-IV [facility]; Protocol Last Admin: 06/02/19 01:47 Dose: 100 mls/hr Amino Acids (Clinimix -) 1,000 mls @ 84 mls/hr IV Q12H [facility] Last Admin: 06/02/19 02:27 Dose: 84 mls/hr Fat Emulsion Intravenous (Intralipid -) 500 mls @ 41.667 mls/hr IV DAILY@2200 [facility] Last Admin: 06/02/19 01:37 Dose: 41.667 mls/hr Lamotrigine (Lamictal -) 50 mg NR BID [facility] Last Admin: 06/01/19 11:12 Dose: 50 mg Pantoprazole Sodium (Protonix Iv) 40 mg IVPUSH BID [facility] Last Admin: 06/02/19 01:36 Dose: 40 mg Constitutional: Yes: No Distress, Thin, vented Eyes: Yes: Conjunctiva Clear, EOM Intact HENT: Yes: Atraumatic, Normocephalic, Other (Trach intact ) Cardiovascular: Yes: Regular Rate and Rhythm Respiratory: Yes: Diminished, Mechanically Ventilated, Rhonchi. No: Accessory Muscle Use, SOB, SOB on Exertion, Stridor, Tachypnea, Wheezes ...Inspection: Yes: WNL ...Clubbing: No Gastrointestinal: Yes: Distended, Soft, (+) BS Musculoskeletal: Yes: WNL Extremities: Yes: WNL Edema: No Peripheral Pulses WNL: Yes Neurological: Yes: Non-verbal Labs: Laboratory Results - last 24 hr 06/02/19 06/02/19 08:10 08:10 WBC 18.8 H RBC 3.17 L Hgb 10.1 L Hct 29.2 L MCV 92.2 MCH 31.9 MCHC 34.6 RDW 16.1 H Plt Count 449 H D MPV 7.9 Absolute Neuts (auto) 17.0 H Neutrophils % 90.4 H Lymphocytes % 5.9 L D Monocytes % 2.5 L Eosinophils % 1.1 D Basophils % 0.1 Nucleated RBC % 0 Sodium 130 L Potassium 2.5 L* Chloride 97 L Carbon Dioxide 21 Anion Gap 12 BUN 30.4 H Creatinine 0.8 Est GFR (CKD-EPI)AfAm 106.38 Est GFR (CKD-EPI)NonAf 91.79 Random Glucose 115 H Calcium 10.4 H Total Bilirubin 0.7 AST 14 L ALT 15 Alkaline Phosphatase 70 Total Protein 6.5 Albumin 2.3 L Free T4 1.41 H Problem List - Problems (1) Pleural effusion Code(s): J90 - PLEURAL EFFUSION, NOT ELSEWHERE CLASSIFIED (2) Anemia Code(s): D64.9 - ANEMIA, UNSPECIFIED (3) Dislodged jejunostomy tube Code(s): T85.528A - DISPLACEMENT OF GASTROINTESTINAL PROSTH DEV/GRFT, INIT (4) Ileitis Code(s): K52.9 - NONINFECTIVE GASTROENTERITIS AND COLITIS, UNSPECIFIED (5) Leukocytosis Code(s): D72.829 - ELEVATED WHITE BLOOD CELL COUNT, UNSPECIFIED (6) Pneumonia Code(s): J18.9 - PNEUMONIA, UNSPECIFIED ORGANISM (7) COPD (chronic obstructive pulmonary disease) Code(s): J44.9 - CHRONIC OBSTRUCTIVE PULMONARY DISEASE, UNSPECIFIED (8) Chronic respiratory failure Code(s): J96.10 - CHRONIC RESPIRATORY FAILURE, UNSP W HYPOXIA OR HYPERCAPNIA (9) Functional quadriplegia Code(s): R53.2 - FUNCTIONAL QUADRIPLEGIA (10) Parkinson disease Code(s): G20 - PARKINSON'S DISEASE Assessment/Plan GI workup per GI AC Mode of vent ABX coverage per ID Follow culture VTE prophylaxis Monitor off systemic steroids BD TX PRN Dr Alexandre Problem List - Problems (1) Pleural effusion Code(s): J90 - PLEURAL EFFUSION, NOT ELSEWHERE CLASSIFIED (2) Anemia Code(s): D64.9 - ANEMIA, UNSPECIFIED Qualifiers: Anemia type: iron deficiency (3) Dislodged jejunostomy tube Code(s): T85.528A - DISPLACEMENT OF GASTROINTESTINAL PROSTH DEV/GRFT, INIT (4) Ileitis Code(s): K52.9 - NONINFECTIVE GASTROENTERITIS AND COLITIS, UNSPECIFIED (5) Leukocytosis Code(s): D72.829 - ELEVATED WHITE BLOOD CELL COUNT, UNSPECIFIED (6) Pneumonia Code(s): J18.9 - PNEUMONIA, UNSPECIFIED ORGANISM (7) COPD (chronic obstructive pulmonary disease) Code(s): J44.9 - CHRONIC OBSTRUCTIVE PULMONARY DISEASE, UNSPECIFIED (8) Chronic respiratory failure Code(s): J96.10 - CHRONIC RESPIRATORY FAILURE, UNSP W HYPOXIA OR HYPERCAPNIA (9) Functional quadriplegia Code(s): R53.2 - FUNCTIONAL QUADRIPLEGIA (10) Parkinson disease Code(s): G20 - PARKINSON'S DISEASE
[2019-06-02] MEDS: KCL 10 MEQ IVPB 10 MEQ/100 ML INFUS.BAG IVPB SCH ×4 (10:54→15:38)
[2019-06-02 12:12] LABS: PLATELET ESTIMATE NORMAL
[2019-06-02 13:02] LABS: OVALOCYTE 1+
--- NOTE | 2019-06-02 14:12 | PN ---
Progress Note (short form) - Note Progress Note: abdominal distention noted, gt replaced, rectal tube placed ct scan with extensive LLL consolidation, GT, colon within hernia trach to vent Vital Signs Period Temp Pulse Resp BP Sys/Gomez Pulse Ox Last 24 Hr 97.4 F-98.2 F 85-98 13-27 119-131/70-88 97-99 cor-rrr lungs decreased bs at bases abd soft,+GT with drainage +hernia ext no edema CBC, BMP 06/02/19 08:10 06/02/19 08:10 Microbiology 05/28/19 06:43 Blood - Peripheral Venous Blood Culture - Preliminary NO GROWTH OBTAINED AFTER 96 HOURS, INCUBATION TO CONTINUE FOR 1 DAYS. 05/28/19 06:48 Blood - Peripheral Venous Blood Culture - Preliminary NO GROWTH OBTAINED AFTER 96 HOURS, INCUBATION TO CONTINUE FOR 1 DAYS. a/p 68 yo man with chronic resp failure, copd, MS/MR leukocytosis ?secondary to pneumonia, fecal retention blood cultures f/u labs in am continue zosyn for now Problem List - Problems (1) Dislodged jejunostomy tube Code(s): T85.528A - DISPLACEMENT OF GASTROINTESTINAL PROSTH DEV/GRFT, INIT (2) Leukocytosis Code(s): D72.829 - ELEVATED WHITE BLOOD CELL COUNT, UNSPECIFIED (3) Pneumonia Code(s): J18.9 - PNEUMONIA, UNSPECIFIED ORGANISM (4) Ileitis Code(s): K52.9 - NONINFECTIVE GASTROENTERITIS AND COLITIS, UNSPECIFIED (5) Chronic respiratory failure Code(s): J96.10 - CHRONIC RESPIRATORY FAILURE, UNSP W HYPOXIA OR HYPERCAPNIA
--- NOTE | 2019-06-02 15:05 | PN ---
Progress Note, Physician Chief Complaint: Medicine coverage for Dr. Badillo/Dr. Melendez Admitted from [facility] with sepsis, TAM, j tube dislodgement, fecal impaction per RN critical potassium, receiving IV potassium x4 runs will check mag and k at 1800 after 4th k run gtube came out overnight, GI replaced, and also placed rectal tube for decompression CT abd with consolidation in lungs tsh 4, t4 1.41 History of Present Illness: 68 year old male with PMH cerebral palsy, parkinsons disease, chronic respiratory failure - vent dependent, copd, jtube/gtube presents from [facility] for sepsis and j tube dislodgement - Current Medication List Current Medications: Active Medications Albuterol/Ipratropium (Duoneb -) 1 amp NEB RQID [facility] Last Admin: 06/02/19 11:25 Dose: 1 amp Budesonide (Pulmicort 0.25 Mg Nebulizer -) 1 amp NEB RBID [facility] Last Admin: 06/02/19 07:25 Dose: 1 amp Cinacalcet (Sensipar -) 60 mg PO DAILY [facility] Last Admin: 06/01/19 11:11 Dose: 60 mg Piperacillin Sod/Tazobactam (Sod 3.375 gm/ Dextrose) 50 mls @ 100 mls/hr IVPB Q8H-IV [facility]; Protocol Last Admin: 06/02/19 10:09 Dose: 100 mls/hr Amino Acids (Clinimix -) 1,000 mls @ 84 mls/hr IV Q12H [facility] Last Admin: 06/02/19 02:27 Dose: 84 mls/hr Fat Emulsion Intravenous (Intralipid -) 500 mls @ 41.667 mls/hr IV DAILY@2200 [facility] Last Admin: 06/02/19 01:37 Dose: 41.667 mls/hr Lamotrigine (Lamictal -) 50 mg NR BID [facility] Last Admin: 06/01/19 11:12 Dose: 50 mg Pantoprazole Sodium (Protonix Iv) 40 mg IVPUSH BID [facility] Last Admin: 06/02/19 10:03 Dose: 40 mg - Objective Vital Signs: Vital Signs Temperature 97.7 F 06/02/19 07:24 Pulse Rate 92 H 06/02/19 09:00 Respiratory Rate 16 06/02/19 11:58 Blood Pressure 120/70 06/02/19 09:00 O2 Sat by Pulse Oximetry (%) 99 06/02/19 11:57 Constitutional: Yes: Calm Cardiovascular: Yes: WNL, Regular Rate and Rhythm Respiratory: Yes: Diminished, Mechanically Ventilated Gastrointestinal: Yes: Distention, Other (hernia, gtube leaking) Musculoskeletal: Yes: Other (contractures) Neurological: Yes: Other Labs: CBC, BMP 06/02/19 08:10 06/02/19 08:10 INR, PTT INR 1.27 (0.83-1.09) H 05/28/19 15:58 Problem List - Problems (1) Bowel obstruction Assessment/Plan: GI following surgery following tube feeds to restart tonight ct confirms gtube in place NPO, IVF Code(s): K56.609 - UNSP INTESTNL OBST, UNSP TO PARTIAL VERSUS COMPLETE OBST Qualifiers: Intestinal obstruction type: unspecified Intestinal obstruction extent: unspecified extent Qualified Code(s): K56.609 - Unspecified intestinal obstruction, unspecified as to partial versus complete obstruction (2) Sepsis Assessment/Plan: ID following on zosyn blood cultures from 05/[address] abd shows LLL consolidation Code(s): A41.9 - SEPSIS, UNSPECIFIED ORGANISM (3) Hyponatremia Assessment/Plan: NA 130, pleural effusion tube feeds on hold- to restart tonight recheck am labs Code(s): E87.1 - HYPO-OSMOLALITY AND HYPONATREMIA (4) Anemia Assessment/Plan: iron deficiency anemia iron profile noted Venofer x1 stool occult negative Code(s): D64.9 - ANEMIA, UNSPECIFIED Qualifiers: Anemia type: iron deficiency (5) Dislodged jejunostomy tube Assessment/Plan: GI following- rec waiting 1-2 weeks to replace jtube also j tube replaced approximately monthly- quality of life? IR does not perform Jtube palliative care consulted Code(s): T85.528A - DISPLACEMENT OF GASTROINTESTINAL PROSTH DEV/GRFT, INIT (6) Fecal impaction Assessment/Plan: rectal tube placed Code(s): K56.41 - FECAL IMPACTION (7) Pleural effusion Assessment/Plan: pulm following vent dependent monitor sats Code(s): J90 - PLEURAL EFFUSION, NOT ELSEWHERE CLASSIFIED (8) Cerebral palsy Assessment/Plan: will need long-term on dispo vent, trach, will have jtube/gtube replacement for feedings Code(s): G80.9 - CEREBRAL PALSY, UNSPECIFIED (9) Chronic respiratory failure Assessment/Plan: pulm following continue vent monitor sats Code(s): J96.10 - CHRONIC RESPIRATORY FAILURE, UNSP W HYPOXIA OR HYPERCAPNIA (10) Parkinson disease Assessment/Plan: continue home meds Code(s): G20 - PARKINSON'S DISEASE
--- NOTE | 2019-06-02 17:05 | PN ---
Progress Note (short form) - Note Progress Note: No Volvulus on CT scan and G-tube within stomach. Advised nurse to D/C Rectal tube D/W Dr. Levi. Trying to assess best options for jejunostomy. I do not place G-J tubes. The J portions of the G-J due tend to clog much more frequently given that they are a much smaller tube then surgically placed jejunostomy. If surgical placement is not an option at this time and interventional radiology cannot place G-J tube,, could consider transfer to a center where G-J tube can be placed. Ultimately, however, regardless of what type of tube is placed, care needs to be taken at his nursing facility so as not to have frequent tube dislodgements. Problem List - Problems (1) Dislodged jejunostomy tube Code(s): T85.528A - DISPLACEMENT OF GASTROINTESTINAL PROSTH DEV/GRFT, INIT (2) Leukocytosis Code(s): D72.829 - ELEVATED WHITE BLOOD CELL COUNT, UNSPECIFIED (3) Fecal impaction Code(s): K56.41 - FECAL IMPACTION
--- NOTE | 2019-06-02 17:29 | CONSULT ---
Consult Consult Specialty:: Surgery for second opinion Reason for Consultation:: disclodged J-tube - History of Present Illness Chief Complaint: dislodged J-tube History of Present Illness: 68 y.o. male [facility] admitted for recurrent J-tube dislodgment. Replacement in ED attempted but proved unsuccessful. Evaluated by Surgery and recommendations appreciated. Consulted for second opinion. 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 No: Sleep Apnea - Past Surgical History Additional Surgical History: gastrostomy, Jejunostomy - Alcohol/Substance Use Hx Alcohol Use: No History of Substance Use: reports: None - Smoking History Smoking history: Unknown if ever smoked Have you smoked in the past 12 months: No - Social History ADL: Support Services History of Recent Travel: No Home Medications - Allergies Allergies/Adverse Reactions: Allergies Allergy/AdvReac Type Severity Reaction Status Date / Time No Known Allergies Allergy Verified 05/28/19 06:56 - Home Medications Home Medications: Ambulatory Orders Acetaminophen 650 mg GT Q6H 05/20/19 Budesonide [Pulmicort 0.25 mg Nebulizer -] 1 neb IH BID 05/20/19 Clorazepate Dipotassium 3.75 mg GT HS 05/20/19 Heparin - 5,000 unit SQ BID 05/20/19 Ipratropium/Albuterol Sulfate [Iprat-Albut 0.5-3(2.5) mg/3 ml] 3 ml IH QID 05/20 Lamotrigine [Lamictal -] 50 mg GT BID 05/20/19 Omeprazole Pediatric Solution [Omeprazole Pediatric Oral Solution] 20 ml GT DAILY 05/20/19 Prednisone 10 mg GT DAILY 05/20/19 Sod Phos Di, Grand/K Phos Grand [Phospha 250 Neutral Tablet] 250 mg GT BID Ferrous Sulfate [Feosol] 300 mg GT DAILY udc 05/22/19 Cinacalcet HCl [Sensipar] 60 mg GT DAILY 05/28/19 Review of Systems Findings/Remarks: vegetative state and non-interactive Physical Exam Vital Signs: Vital Signs Temperature 98.3 F 06/02/19 15:00 Pulse Rate 75 06/02/19 15:00 Respiratory Rate 12 06/02/19 16:15 Blood Pressure 131/68 06/02/19 15:00 O2 Sat by Pulse Oximetry (%) 99 06/02/19 11:57 Constitutional: Yes: No Distress HENT: Yes: Normocephalic Neck: Yes: Supple Cardiovascular: Yes: Regular Rate and Rhythm Respiratory: Yes: CTA Bilaterally Gastrointestinal: Yes: Hernia (large upper midline hernia), Other (4 cm infraumbilical incision, G tube to gravity with bilious drainage, J-tube insertion site closed) ...Rectal Exam: Yes: Deferred Labs: CBC, BMP 06/02/19 08:10 06/02/19 08:10 Imaging - Results Cat Scan: Report Reviewed, Image Reviewed Problem List - Problems (1) Dislodged jejunostomy tube Assessment/Plan: May benefit from insertion of G-j tube where expertise and proper equipment is available i.e, tertiary care center otherwise, follow prior surgical recommendations Code(s): T85.528A - DISPLACEMENT OF GASTROINTESTINAL PROSTH DEV/GRFT, INIT
[2019-06-02] MEDS: lamoTRIgine 25 MG TABLET NR SCH (22:12)
[2019-06-03] MEDS ORDERED: MAGNESIUM SULF 50% (8.12 MEQ/2 ML-1 GM VIAL) IVPB ONE (00:51)
[2019-06-03] MEDS ORDERED: PIPERACILLIN/TAZOBACTAM 3.375 GM VIAL IVPB ONE ×3 (01:07→17:36)
[2019-06-03] MEDS ORDERED: DEXTROSE 5%-WATER - 50 ML IVPB ONE ×3 (01:08→17:36)
[2019-06-03] MEDS: PIPERACILLIN/TAZOB 3.375 GM 3.375 GM in DEXTROSE 5%-WATER - 50 ML IVPB SCH ×3 (01:22→18:00)
[2019-06-03] MEDS: KCL 10 MEQ IVPB 10 MEQ/100 ML INFUS.BAG IVPB SCH ×4 (03:11→13:28)
[2019-06-03] MEDS: AMINO ACIDS 4.25%/D5W 1,000 ML IV SCH ×2 (05:22→17:59)
[2019-06-03] MEDS ORDERED: PT OWN MED DRAWER 7, Y5N ONE ×3 (07:58→22:54)
[2019-06-03] MEDS: BUDESONIDE 0.25 MG/2ML INH SUSP VIAL NEB SCH ×2 (08:28→20:30)
[2019-06-03 08:51] LABS: BASO % 0.3 % (0-2.0); EOS % 1.2 % (0-4.5); HEMATOCRIT 25.6 % (35.4-49); HEMOGLOBIN 8.8 GM/dL (11.7-16.9); MCH 32.2 pg (25.7-33.7); MCHC 34.3 g/dl (32.0-35.9); MEAN CELL VOLUME 93.8 fl (80-96); MEAN PLT VOLUME 7.6 fl (7.5-11.1); MONO % 4.1 % (3.8-10.2); NEUT % 84.4 % (42.8-82.8); PLATELET COUNT 399 K/MM3 (134-434); RBC 2.73 M/mm3 (4.00-5.60); RDW 16.4 % (11.9-15.9); WHITE BLOOD COUNT 11.8 K/mm3 (4.0-10.0)
[2019-06-03 09:16] LABS: BLOOD UREA NITROGEN 26.9 mg/dL (7-18); CALCIUM 9.9 mg/dL (8.5-10.1); CREATININE 0.6 mg/dL (0.55-1.3); MAGNESIUM 2.1 mg/dL (1.8-2.4); POTASSIUM 3.3 mmol/L (3.5-5.1)
[2019-06-03] MEDS: PANTOPRAZOLE SODIUM 40 MG VIAL IVPUSH SCH ×2 (10:56→23:13)
[2019-06-03] MEDS: CINACALCET HCL 30 MG TAB (FP) PO SCH (11:00)
[2019-06-03] MEDS: lamoTRIgine 25 MG TABLET NR SCH ×2 (11:07→23:13)
--- NOTE | 2019-06-03 11:23 | PN ---
Progress Note, Physician History of Present Illness: pulmonary sleeping on vent support ac mode,-resp distress - Current Medication List Current Medications: Active Medications Budesonide (Pulmicort 0.25 Mg Nebulizer -) 1 amp NEB RBID [facility] Last Admin: 06/03/19 08:28 Dose: 1 amp Cinacalcet (Sensipar -) 60 mg PO DAILY [facility] Last Admin: 06/03/19 11:00 Dose: 60 mg Piperacillin Sod/Tazobactam (Sod 3.375 gm/ Dextrose) 50 mls @ 100 mls/hr IVPB Q8H-IV [facility]; Protocol Last Admin: 06/03/19 10:55 Dose: 100 mls/hr Amino Acids (Clinimix -) 1,000 mls @ 84 mls/hr IV Q12H [facility] Last Admin: 06/03/19 05:22 Dose: 84 mls/hr Fat Emulsion Intravenous (Intralipid -) 500 mls @ 41.667 mls/hr IV DAILY@2200 [facility] Last Admin: 06/02/19 22:17 Dose: 41.667 mls/hr Potassium Chloride (Potassium Chloride 10 Meq Premix Ivpb -) 10 meq in 100 mls @ 100 mls/hr IVPB Q60M [facility] Stop: 06/03/19 11:59 Last Admin: 06/03/19 11:01 Dose: 100 mls/hr Lamotrigine (Lamictal -) 50 mg NR BID [facility] Last Admin: 06/03/19 11:07 Dose: 50 mg Pantoprazole Sodium (Protonix Iv) 40 mg IVPUSH BID [facility] Last Admin: 06/03/19 10:56 Dose: 40 mg - Objective Vital Signs: Vital Signs Temperature 98 F 06/03/19 06:00 Pulse Rate 68 06/03/19 08:29 Respiratory Rate 12 06/03/19 08:29 Blood Pressure 116/70 06/03/19 06:00 O2 Sat by Pulse Oximetry (%) 100 06/03/19 08:29 Constitutional: Yes: Thin, Other (sleeping) Eyes: Yes: WNL HENT: Yes: WNL Neck: Yes: Supple (trach) Cardiovascular: Yes: Regular Rate and Rhythm, S1, S2 Respiratory: Yes: Diminished Gastrointestinal: Yes: Soft Extremities: Yes: Other (contracted) Edema: No Labs: CBC, BMP 06/03/19 08:20 06/03/19 08:20 INR, PTT INR 1.27 (0.83-1.09) H 05/28/19 15:58 Assessment/Plan Problem List - Problems (1) Pleural effusion Code(s): J90 - PLEURAL EFFUSION, NOT ELSEWHERE CLASSIFIED (2) Anemia Code(s): D64.9 - ANEMIA, UNSPECIFIED (3) Dislodged jejunostomy tube Code(s): T85.528A - DISPLACEMENT OF GASTROINTESTINAL PROSTH DEV/GRFT, INIT (4) Ileitis Code(s): K52.9 - NONINFECTIVE GASTROENTERITIS AND COLITIS, UNSPECIFIED (5) Leukocytosis Code(s): D72.829 - ELEVATED WHITE BLOOD CELL COUNT, UNSPECIFIED (6) Pneumonia Code(s): J18.9 - PNEUMONIA, UNSPECIFIED ORGANISM (7) COPD (chronic obstructive pulmonary disease) Code(s): J44.9 - CHRONIC OBSTRUCTIVE PULMONARY DISEASE, UNSPECIFIED (8) Chronic respiratory failure Code(s): J96.10 - CHRONIC RESPIRATORY FAILURE, UNSP W HYPOXIA OR HYPERCAPNIA (9) Functional quadriplegia Code(s): R53.2 - FUNCTIONAL QUADRIPLEGIA (10) Parkinson disease Code(s): G20 - PARKINSON'S DISEASE Assessment/Plan AC Mode of vent ABX coverage per ID Follow culture VTE prophylaxis Monitor off systemic steroids BD TX PRN Dr Reyes Problem List - Problems (1) Pleural effusion Code(s): J90 - PLEURAL EFFUSION, NOT ELSEWHERE CLASSIFIED (2) Anemia Code(s): D64.9 - ANEMIA, UNSPECIFIED Qualifiers: Anemia type: iron deficiency (3) Dislodged jejunostomy tube Code(s): T85.528A - DISPLACEMENT OF GASTROINTESTINAL PROSTH DEV/GRFT, INIT (4) Ileitis Code(s): K52.9 - NONINFECTIVE GASTROENTERITIS AND COLITIS, UNSPECIFIED (5) Leukocytosis Code(s): D72.829 - ELEVATED WHITE BLOOD CELL COUNT, UNSPECIFIED (6) Pneumonia Code(s): J18.9 - PNEUMONIA, UNSPECIFIED ORGANISM (7) COPD (chronic obstructive pulmonary disease) Code(s): J44.9 - CHRONIC OBSTRUCTIVE PULMONARY DISEASE, UNSPECIFIED (8) Chronic respiratory failure Code(s): J96.10 - CHRONIC RESPIRATORY FAILURE, UNSP W HYPOXIA OR HYPERCAPNIA (9) Functional quadriplegia Code(s): R53.2 - FUNCTIONAL QUADRIPLEGIA (10) Parkinson disease Code(s): G20 - PARKINSON'S DISEASE
[2019-06-03 12:58] LABS: ANISOCYTOSIS 0; MACROCYTOSIS 0; PLATELET ESTIMATE NORMAL
[2019-06-03 13:06] LABS: TARGET CELLS 1+
[2019-06-03] MEDS ORDERED: POTASSIUM CHLORIDE ORAL LIQUID 20 MEQ/15 ML GT ONE (14:05)
--- NOTE | 2019-06-03 14:09 | PN ---
Progress Note, Physician Chief Complaint: Medicine coverage for Dr. Badillo/Dr. Melendez Admitted from [facility] with sepsis, TAM, j tube dislodgement, fecal impaction critical potassium overnight, also mag was low- was repleted IV tsh 4, t4 1.41 t3 pending spoke to GI- Dr. Gonzalez about possible transfer to outside center for G/J tube. if he is tolerating feeds she would leave this as is. clearly the J portion is a problem as he is admitted almost monthly for J tube dislodgement. GI to F/u tomorrow. History of Present Illness: 68 year old male with PMH cerebral palsy, parkinsons disease, chronic respiratory failure - vent dependent, copd, jtube/gtube presents from [facility] for sepsis and j tube dislodgement - Current Medication List Current Medications: Active Medications Budesonide (Pulmicort 0.25 Mg Nebulizer -) 1 amp NEB RBID [facility] Last Admin: 06/03/19 08:28 Dose: 1 amp Cinacalcet (Sensipar -) 60 mg PO DAILY [facility] Last Admin: 06/03/19 11:00 Dose: 60 mg Piperacillin Sod/Tazobactam (Sod 3.375 gm/ Dextrose) 50 mls @ 100 mls/hr IVPB Q8H-IV [facility]; Protocol Last Admin: 06/03/19 10:55 Dose: 100 mls/hr Amino Acids (Clinimix -) 1,000 mls @ 84 mls/hr IV Q12H [facility] Last Admin: 06/03/19 05:22 Dose: 84 mls/hr Fat Emulsion Intravenous (Intralipid -) 500 mls @ 41.667 mls/hr IV DAILY@2200 [facility] Last Admin: 06/02/19 22:17 Dose: 41.667 mls/hr Lamotrigine (Lamictal -) 50 mg NR BID [facility] Last Admin: 06/03/19 11:07 Dose: 50 mg Pantoprazole Sodium (Protonix Iv) 40 mg IVPUSH BID [facility] Last Admin: 06/03/19 10:56 Dose: 40 mg - Objective Vital Signs: Vital Signs Temperature 98.3 F 06/03/19 11:27 Pulse Rate 81 06/03/19 11:27 Respiratory Rate 16 06/03/19 11:51 Blood Pressure 120/65 06/03/19 11:27 O2 Sat by Pulse Oximetry (%) 100 06/03/19 08:29 Constitutional: Yes: No Distress, Calm HENT: Yes: Atraumatic, Normocephalic Neck: Yes: Supple Cardiovascular: Yes: Regular Rate and Rhythm Respiratory: Yes: Diminished Gastrointestinal: Yes: Distention, Hernia, Other (gtube) Extremities: Yes: Other (contracted) Integumentary: Yes: Other Neurological: Yes: Alert Labs: CBC, BMP 06/03/19 08:20 06/03/19 08:20 INR, PTT INR 1.27 (0.83-1.09) H 05/28/19 15:58 Problem List - Problems (1) Dislodged jejunostomy tube Assessment/Plan: GI following also j tube replaced approximately monthly- quality of life? IR does not perform Jtube palliative care consulted surgery second opinion appreciated will speak to GI about transfer - rec to see if tolerating feeds then this might be how he is maintained Code(s): T85.528A - DISPLACEMENT OF GASTROINTESTINAL PROSTH DEV/GRFT, INIT (2) Sepsis Assessment/Plan: ID following on zosyn blood cultures from 05/[address] abd shows LLL consolidation Code(s): A41.9 - SEPSIS, UNSPECIFIED ORGANISM (3) Hyponatremia Assessment/Plan: NA 131, pleural effusion tube feeds restarted recheck am labs Code(s): E87.1 - HYPO-OSMOLALITY AND HYPONATREMIA (4) Anemia Assessment/Plan: iron deficiency anemia iron profile noted Venofer x1 stool occult negative Code(s): D64.9 - ANEMIA, UNSPECIFIED Qualifiers: Anemia type: iron deficiency (5) Fecal impaction Assessment/Plan: rectal tube placed Code(s): K56.41 - FECAL IMPACTION (6) Pleural effusion Assessment/Plan: pulm following vent dependent monitor sats Code(s): J90 - PLEURAL EFFUSION, NOT ELSEWHERE CLASSIFIED (7) Cerebral palsy Assessment/Plan: will need snf on dispo vent, trach, will have jtube/gtube replacement for feedings Code(s): G80.9 - CEREBRAL PALSY, UNSPECIFIED (8) Chronic respiratory failure Assessment/Plan: pulm following continue vent monitor sats Code(s): J96.10 - CHRONIC RESPIRATORY FAILURE, UNSP W HYPOXIA OR HYPERCAPNIA (9) Parkinson disease Assessment/Plan: continue home meds Code(s): G20 - PARKINSON'S DISEASE
--- NOTE | 2019-06-03 15:00 | PN ---
Progress Note (short form) - Note Progress Note: much more awake today trach to vent Vital Signs Period Temp Pulse Resp BP Sys/Gomez Pulse Ox Last 24 Hr 98 F-98.7 F 63-81 12-18 116-149/65-79 100-100 cor-rrr lungs decreased bs at bases abd soft, gt to drainage +hernia, soft ext contracted CBC, BMP 06/03/19 08:20 06/03/19 08:20 Microbiology 05/28/19 06:43 Blood - Peripheral Venous Blood Culture - Final NO GROWTH AFTER 5 DAYS INCUBATION 05/28/19 06:48 Blood - Peripheral Venous Blood Culture - Final NO GROWTH AFTER 5 DAYS INCUBATION a/p 68 yo man with chronic resp failure, copd, MS/MR leukocytosis-improved ?secondary to pneumonia, fecal retention blood cultures f/u labs in am continue zosyn day #6 Problem List - Problems (1) Dislodged jejunostomy tube Code(s): T85.528A - DISPLACEMENT OF GASTROINTESTINAL PROSTH DEV/GRFT, INIT (2) Leukocytosis Code(s): D72.829 - ELEVATED WHITE BLOOD CELL COUNT, UNSPECIFIED (3) Pneumonia Code(s): J18.9 - PNEUMONIA, UNSPECIFIED ORGANISM (4) Ileitis Code(s): K52.9 - NONINFECTIVE GASTROENTERITIS AND COLITIS, UNSPECIFIED (5) Chronic respiratory failure Code(s): J96.10 - CHRONIC RESPIRATORY FAILURE, UNSP W HYPOXIA OR HYPERCAPNIA
[2019-06-04] MEDS: FAT EMULSIONS 500 ML IV SCH ×2 (00:02→22:45)
[2019-06-04] MEDS ORDERED: DEXTROSE 5%-WATER - 50 ML IVPB ONE (00:46)
[2019-06-04] MEDS ORDERED: PIPERACILLIN/TAZOBACTAM 3.375 GM VIAL IVPB ONE ×2 (00:46→10:12)
[2019-06-04] MEDS: PIPERACILLIN/TAZOB 3.375 GM 3.375 GM in DEXTROSE 5%-WATER - 50 ML IVPB SCH ×2 (01:11→10:57)
[2019-06-04] MEDS: AMINO ACIDS 4.25%/D5W 1,000 ML IV SCH ×2 (06:17→14:44)
[2019-06-04] MEDS: BUDESONIDE 0.25 MG/2ML INH SUSP VIAL NEB SCH ×2 (08:10→20:17)
[2019-06-04] MEDS ORDERED: PT OWN MED DRAWER 7, Y5N ONE ×2 (08:18→10:12)
[2019-06-04 08:27] LABS: BASO % 0.2 % (0-2.0); EOS % 1.7 % (0-4.5); HEMATOCRIT 24.6 % (35.4-49); HEMOGLOBIN 8.6 GM/dL (11.7-16.9); LYMPH % 12.5 % (8-40); MCH 32.5 pg (25.7-33.7); MEAN CELL VOLUME 92.9 fl (80-96); MEAN PLT VOLUME 7.4 fl (7.5-11.1); MONO % 5.2 % (3.8-10.2); NEUT % 80.4 % (42.8-82.8); PLATELET COUNT 426 K/MM3 (134-434); RBC 2.65 M/mm3 (4.00-5.60); RDW 16.6 % (11.9-15.9); WHITE BLOOD COUNT 9.4 K/mm3 (4.0-10.0)
[2019-06-04 08:49] LABS: BILIRUBIN,TOTAL 0.6 mg/dL (0.2-1); BLOOD UREA NITROGEN 23.7 mg/dL (7-18); CALCIUM 9.7 mg/dL (8.5-10.1); CREATININE 0.6 mg/dL (0.55-1.3); POTASSIUM 3.5 mmol/L (3.5-5.1); TOT PROT 5.8 g/dl (6.4-8.2)
[2019-06-04] MEDS ORDERED: DEXTROSE 5%-WATER - 100 ML IVPB ONE (10:13)
--- NOTE | 2019-06-04 10:45 | PN ---
Progress Note (short form) - Note Progress Note: Awake on AC Mode of vent, 40% FiO2. No acute events overnight. Intake & Output 06/01/19 06/02/19 06/03/19 06/04/19 23:59 23:59 23:59 23:59 Intake Total 1150 2250 1561 Output Total 350 300 100 Balance 800 1950 1461 Last Vital Signs Temp Pulse Resp BP Pulse Ox 98.4 F 66 16 108/58 L 100 06/04/19 05:00 06/04/19 05:00 06/04/19 08:10 06/04/19 05:00 06/03/19 21:00 Active Medications Budesonide (Pulmicort 0.25 Mg Nebulizer -) 1 amp NEB RBID [facility] Last Admin: 06/03/19 20:30 Dose: 1 amp Cinacalcet (Sensipar -) 60 mg PO DAILY [facility] Last Admin: 06/03/19 11:00 Dose: 60 mg Piperacillin Sod/Tazobactam (Sod 3.375 gm/ Dextrose) 50 mls @ 100 mls/hr IVPB Q8H-IV [facility]; Protocol Last Admin: 06/04/19 01:11 Dose: 100 mls/hr Amino Acids (Clinimix -) 1,000 mls @ 84 mls/hr IV Q12H [facility] Last Admin: 06/04/19 06:17 Dose: Not Given Fat Emulsion Intravenous (Intralipid -) 500 mls @ 41.667 mls/hr IV DAILY@2200 [facility] Last Admin: 06/04/19 00:02 Dose: 41.667 mls/hr Lamotrigine (Lamictal -) 50 mg NR BID [facility] Last Admin: 06/03/19 23:13 Dose: 50 mg Pantoprazole Sodium (Protonix Iv) 40 mg IVPUSH BID [facility] Last Admin: 06/03/19 23:13 Dose: 40 mg Constitutional: Yes: No Distress, Thin, vented Eyes: Yes: Conjunctiva Clear, EOM Intact HENT: Yes: Atraumatic, Normocephalic, Other (Trach intact ) Cardiovascular: Yes: Regular Rate and Rhythm Respiratory: Yes: Diminished, Mechanically Ventilated, Rhonchi. No: Accessory Muscle Use, SOB, SOB on Exertion, Stridor, Tachypnea, Wheezes ...Inspection: Yes: WNL ...Clubbing: No Gastrointestinal: Yes: less distended, Soft, (+) BS Musculoskeletal: Yes: WNL Extremities: Yes: WNL Edema: No Peripheral Pulses WNL: Yes Neurological: Yes: Non-verbal Labs: Laboratory Results - last 24 hr 06/03/19 06/03/19 06/03/19 08:20 08:20 20:05 WBC RBC Hgb Hct MCV MCH MCHC RDW Plt Count MPV Absolute Neuts (auto) Neutrophils % Neutrophils % (Manual) 80.4 Band Neutrophils % 0.0 Lymphocytes % Lymphocytes % (Manual) 13.7 D Monocytes % Monocytes % (Manual) 3 L D Eosinophils % Eosinophils % (Manual) 1.0 D Basophils % Basophils % (Manual) 0.0 Myelocytes % (Man) 1 Promyelocytes % (Man) 0 Blast Cells % (Manual) 0 Nucleated RBC % Metamyelocytes 1 Hypochromia 1+ Platelet Estimate Normal Polychromasia 1+ Poikilocytosis 0 Anisocytosis 0 Microcytosis 0 Macrocytosis 0 Target Cells 1+ Sodium Potassium 4.5 Chloride Carbon Dioxide Anion Gap BUN Creatinine Est GFR (CKD-EPI)AfAm Est GFR (CKD-EPI)NonAf Random Glucose Calcium Total Bilirubin AST ALT Alkaline Phosphatase Total Protein Albumin Free T3 1.5 L 06/04/19 06/04/19 07:45 07:45 WBC 9.4 RBC 2.65 L Hgb 8.6 L Hct 24.6 L MCV 92.9 MCH 32.5 MCHC 35.0 RDW 16.6 H Plt Count 426 MPV 7.4 L Absolute Neuts (auto) 7.6 Neutrophils % 80.4 Neutrophils % (Manual) Band Neutrophils % Lymphocytes % 12.5 D Lymphocytes % (Manual) Monocytes % 5.2 Monocytes % (Manual) Eosinophils % 1.7 Eosinophils % (Manual) Basophils % 0.2 Basophils % (Manual) Myelocytes % (Man) Promyelocytes % (Man) Blast Cells % (Manual) Nucleated RBC % 0 Metamyelocytes Hypochromia Platelet Estimate Polychromasia Poikilocytosis Anisocytosis Microcytosis Macrocytosis Target Cells Sodium 132 L Potassium 3.5 Chloride 104 Carbon Dioxide 21 Anion Gap 6 L BUN 23.7 H Creatinine 0.6 Est GFR (CKD-EPI)AfAm 119.74 Est GFR (CKD-EPI)NonAf 103.31 Random Glucose 106 Calcium 9.7 Total Bilirubin 0.6 AST 18 ALT 16 Alkaline Phosphatase 75 Total Protein 5.8 L Albumin 2.0 L Free T3 Problem List - Problems (1) Pleural effusion Code(s): J90 - PLEURAL EFFUSION, NOT ELSEWHERE CLASSIFIED (2) Anemia Code(s): D64.9 - ANEMIA, UNSPECIFIED (3) Dislodged jejunostomy tube Code(s): T85.528A - DISPLACEMENT OF GASTROINTESTINAL PROSTH DEV/GRFT, INIT (4) Ileitis Code(s): K52.9 - NONINFECTIVE GASTROENTERITIS AND COLITIS, UNSPECIFIED (5) Leukocytosis Code(s): D72.829 - ELEVATED WHITE BLOOD CELL COUNT, UNSPECIFIED (6) Pneumonia Code(s): J18.9 - PNEUMONIA, UNSPECIFIED ORGANISM (7) COPD (chronic obstructive pulmonary disease) Code(s): J44.9 - CHRONIC OBSTRUCTIVE PULMONARY DISEASE, UNSPECIFIED (8) Chronic respiratory failure Code(s): J96.10 - CHRONIC RESPIRATORY FAILURE, UNSP W HYPOXIA OR HYPERCAPNIA (9) Functional quadriplegia Code(s): R53.2 - FUNCTIONAL QUADRIPLEGIA (10) Parkinson disease Code(s): G20 - PARKINSON'S DISEASE Assessment/Plan GI workup ongoing AC Mode of vent ABX coverage per ID Follow culture VTE prophylaxis Monitor off systemic steroids BD [place] PRN Dr Alexandre Problem List - Problems (1) Pleural effusion Code(s): J90 - PLEURAL EFFUSION, NOT ELSEWHERE CLASSIFIED (2) Anemia Code(s): D64.9 - ANEMIA, UNSPECIFIED Qualifiers: Anemia type: iron deficiency (3) Dislodged jejunostomy tube Code(s): T85.528A - DISPLACEMENT OF GASTROINTESTINAL PROSTH DEV/GRFT, INIT (4) Ileitis Code(s): K52.9 - NONINFECTIVE GASTROENTERITIS AND COLITIS, UNSPECIFIED (5) Leukocytosis Code(s): D72.829 - ELEVATED WHITE BLOOD CELL COUNT, UNSPECIFIED (6) Pneumonia Code(s): J18.9 - PNEUMONIA, UNSPECIFIED ORGANISM (7) COPD (chronic obstructive pulmonary disease) Code(s): J44.9 - CHRONIC OBSTRUCTIVE PULMONARY DISEASE, UNSPECIFIED (8) Chronic respiratory failure Code(s): J96.10 - CHRONIC RESPIRATORY FAILURE, UNSP W HYPOXIA OR HYPERCAPNIA (9) Functional quadriplegia Code(s): R53.2 - FUNCTIONAL QUADRIPLEGIA (10) Parkinson disease Code(s): G20 - PARKINSON'S DISEASE
[2019-06-04] MEDS: PANTOPRAZOLE SODIUM 40 MG VIAL IVPUSH SCH ×2 (10:56→22:44)
[2019-06-04] MEDS: lamoTRIgine 25 MG TABLET NR SCH ×2 (10:56→22:44)
[2019-06-04] MEDS: CINACALCET HCL 30 MG TAB (FP) PO SCH (10:56)
[2019-06-04 12:15] LABS: ANISOCYTOSIS 0; MACROCYTOSIS 0; PLATELET ESTIMATE NORMAL
--- NOTE | 2019-06-04 14:34 | PN ---
Progress Note, Physician Chief Complaint: Medicine coverage for Dr. Badillo/Dr. Melendez Admitted from [facility] with sepsis, TAM, j tube dislodgement, fecal impaction tsh 4, t4 1.41 t3 1.5 GI f/u requested as palliative care team had meeting with family, goals of care - family wants j tube replaced at possible tertiary center. History of Present Illness: 68 year old male with PMH cerebral palsy, parkinsons disease, chronic respiratory failure - vent dependent, copd, jtube/gtube presents from [facility] for sepsis and j tube dislodgement - Current Medication List Current Medications: Active Medications Budesonide (Pulmicort 0.25 Mg Nebulizer -) 1 amp NEB RBID [facility] Last Admin: 06/04/19 08:10 Dose: 1 amp Cinacalcet (Sensipar -) 60 mg PO DAILY [facility] Last Admin: 06/04/19 10:56 Dose: 60 mg Piperacillin Sod/Tazobactam (Sod 3.375 gm/ Dextrose) 50 mls @ 100 mls/hr IVPB Q8H-IV [facility]; Protocol Last Admin: 06/04/19 10:57 Dose: 100 mls/hr Amino Acids (Clinimix -) 1,000 mls @ 84 mls/hr IV Q12H [facility] Last Admin: 06/04/19 06:17 Dose: Not Given Fat Emulsion Intravenous (Intralipid -) 500 mls @ 41.667 mls/hr IV DAILY@2200 [facility] Last Admin: 06/04/19 00:02 Dose: 41.667 mls/hr Lamotrigine (Lamictal -) 50 mg NR BID [facility] Last Admin: 06/04/19 10:56 Dose: 50 mg Pantoprazole Sodium (Protonix Iv) 40 mg IVPUSH BID [facility] Last Admin: 06/04/19 10:56 Dose: 40 mg - Objective Vital Signs: Vital Signs Temperature 97.5 F L 06/04/19 11:15 Pulse Rate 80 06/04/19 11:15 Respiratory Rate 20 06/04/19 11:15 Blood Pressure 121/69 06/04/19 11:15 O2 Sat by Pulse Oximetry (%) 100 06/03/19 21:00 Constitutional: Yes: No Distress, Calm HENT: Yes: Atraumatic, Normocephalic Neck: Yes: Supple Cardiovascular: Yes: Regular Rate and Rhythm Respiratory: Yes: Diminished Gastrointestinal: Yes: Hernia Extremities: Yes: Other (contracted) Integumentary: Yes: Other Neurological: Yes: Other Labs: CBC, BMP 06/04/19 07:45 06/04/19 07:45 INR, PTT INR 1.27 (0.83-1.09) H 05/28/19 15:58 Problem List - Problems (1) Dislodged jejunostomy tube Assessment/Plan: GI following also j tube replaced approximately monthly- palliative care discussed goals of care- family wants patient to have j tube IR does not perform Jtube surgery second opinion appreciated aspirates on feeds with gtube Code(s): T85.528A - DISPLACEMENT OF GASTROINTESTINAL PROSTH DEV/GRFT, INIT (2) Sepsis Assessment/Plan: ID following on zosyn blood cultures from 05/[address] abd shows LLL consolidation Code(s): A41.9 - SEPSIS, UNSPECIFIED ORGANISM (3) Hyponatremia Assessment/Plan: NA 132, pleural effusion recheck am labs Code(s): E87.1 - HYPO-OSMOLALITY AND HYPONATREMIA (4) Anemia Assessment/Plan: iron deficiency anemia iron profile noted Venofer x1 stool occult negative Code(s): D64.9 - ANEMIA, UNSPECIFIED Qualifiers: Anemia type: iron deficiency (5) Fecal impaction Assessment/Plan: rectal tube placed Code(s): K56.41 - FECAL IMPACTION (6) Pleural effusion Assessment/Plan: pulm following vent dependent monitor sats Code(s): J90 - PLEURAL EFFUSION, NOT ELSEWHERE CLASSIFIED (7) Cerebral palsy Assessment/Plan: will need retirement on dispo vent, trach, will have jtube/gtube replacement for feedings Code(s): G80.9 - CEREBRAL PALSY, UNSPECIFIED (8) Chronic respiratory failure Assessment/Plan: pulm following continue vent monitor sats Code(s): J96.10 - CHRONIC RESPIRATORY FAILURE, UNSP W HYPOXIA OR HYPERCAPNIA (9) Parkinson disease Assessment/Plan: continue home meds Code(s): G20 - PARKINSON'S DISEASE
[2019-06-05] MEDS: AMINO ACIDS 4.25%/D5W 1,000 ML IV SCH ×2 (02:23→14:18)
[2019-06-05 08:01] LABS: BASO % 0.6 % (0-2.0); EOS % 1.9 % (0-4.5); HEMATOCRIT 26.8 % (35.4-49); HEMOGLOBIN 9.2 GM/dL (11.7-16.9); LYMPH % 16.5 % (8-40); MCH 32.5 pg (25.7-33.7); MCHC 34.4 g/dl (32.0-35.9); MEAN CELL VOLUME 94.5 fl (80-96); MEAN PLT VOLUME 7.1 fl (7.5-11.1); MONO % 8.1 % (3.8-10.2); NEUT % 72.9 % (42.8-82.8); PLATELET COUNT 446 K/MM3 (134-434); RBC 2.83 M/mm3 (4.00-5.60); RDW 16.6 % (11.9-15.9); WHITE BLOOD COUNT 11.1 K/mm3 (4.0-10.0)
[2019-06-05] MEDS ORDERED: PT OWN MED DRAWER 7, Y5N ONE ×4 (08:02→21:15)
[2019-06-05] MEDS: BUDESONIDE 0.25 MG/2ML INH SUSP VIAL NEB SCH ×2 (08:15→21:20)
[2019-06-05 08:27] LABS: ALBUMIN 2.2 g/dl (3.4-5.0); BILIRUBIN,TOTAL 0.4 mg/dL (0.2-1); BLOOD UREA NITROGEN 22.6 mg/dL (7-18); CALCIUM 10.2 mg/dL (8.5-10.1); CREATININE 0.6 mg/dL (0.55-1.3); POTASSIUM 3.3 mmol/L (3.5-5.1); TOT PROT 6.3 g/dl (6.4-8.2)
[2019-06-05 09:54] LABS: ANISOCYTOSIS 1+; MACROCYTOSIS 0; PLATELET ESTIMATE NORMAL
--- NOTE | 2019-06-05 10:56 | PN ---
Progress Note (short form) - Note Progress Note: Reviewed notes. Consider transfer to tertiary care center to explore options re : J tube / GJ tube placement Problem List - Problems (1) Dislodged jejunostomy tube Code(s): T85.528A - DISPLACEMENT OF GASTROINTESTINAL PROSTH DEV/GRFT, INIT (2) Leukocytosis Code(s): D72.829 - ELEVATED WHITE BLOOD CELL COUNT, UNSPECIFIED (3) Fecal impaction Code(s): K56.41 - FECAL IMPACTION
[2019-06-05] MEDS: lamoTRIgine 25 MG TABLET NR SCH ×2 (11:05→21:19)
[2019-06-05] MEDS: CINACALCET HCL 30 MG TAB (FP) PO SCH (11:05)
[2019-06-05] MEDS: PANTOPRAZOLE SODIUM 40 MG VIAL IVPUSH SCH ×2 (11:06→21:19)
--- NOTE | 2019-06-05 13:37 | PN ---
Progress Note, Physician History of Present Illness: pulmonary no change on vent support ac mode -resp distress - Current Medication List Current Medications: Active Medications Budesonide (Pulmicort 0.25 Mg Nebulizer -) 1 amp NEB RBID [facility] Last Admin: 06/05/19 08:15 Dose: 1 amp Cinacalcet (Sensipar -) 60 mg PO DAILY [facility] Last Admin: 06/05/19 11:05 Dose: 60 mg Amino Acids (Clinimix -) 1,000 mls @ 84 mls/hr IV Q12H [facility] Last Admin: 06/05/19 02:23 Dose: 84 mls/hr Fat Emulsion Intravenous (Intralipid -) 500 mls @ 41.667 mls/hr IV DAILY@2200 [facility] Last Admin: 06/04/19 22:45 Dose: 41.667 mls/hr Lamotrigine (Lamictal -) 50 mg NR BID [facility] Last Admin: 06/05/19 11:05 Dose: 50 mg Pantoprazole Sodium (Protonix Iv) 40 mg IVPUSH BID [facility] Last Admin: 06/05/19 11:06 Dose: 40 mg - Objective Vital Signs: Vital Signs Temperature 97.9 F 06/05/19 09:00 Pulse Rate 73 06/05/19 09:00 Respiratory Rate 12 06/05/19 11:41 Blood Pressure 112/68 06/05/19 09:00 O2 Sat by Pulse Oximetry (%) 100 06/05/19 09:00 Constitutional: Yes: Calm, Thin Eyes: Yes: WNL HENT: Yes: WNL Neck: Yes: Supple (trach) Cardiovascular: Yes: Regular Rate and Rhythm, S1 Respiratory: Yes: Rhonchi (few rhonchi) Gastrointestinal: Yes: Soft Extremities: Yes: Other (contracted) Edema: No Labs: CBC, BMP 06/05/19 07:15 06/05/19 07:15 INR, PTT INR 1.27 (0.83-1.09) H 05/28/19 15:58 Assessment/Plan Problem List - Problems (1) Pleural effusion Code(s): J90 - PLEURAL EFFUSION, NOT ELSEWHERE CLASSIFIED (2) Anemia Code(s): D64.9 - ANEMIA, UNSPECIFIED (3) Dislodged jejunostomy tube Code(s): T85.528A - DISPLACEMENT OF GASTROINTESTINAL PROSTH DEV/GRFT, INIT (4) Ileitis Code(s): K52.9 - NONINFECTIVE GASTROENTERITIS AND COLITIS, UNSPECIFIED (5) Leukocytosis Code(s): D72.829 - ELEVATED WHITE BLOOD CELL COUNT, UNSPECIFIED (6) Pneumonia Code(s): J18.9 - PNEUMONIA, UNSPECIFIED ORGANISM (7) COPD (chronic obstructive pulmonary disease) Code(s): J44.9 - CHRONIC OBSTRUCTIVE PULMONARY DISEASE, UNSPECIFIED (8) Chronic respiratory failure Code(s): J96.10 - CHRONIC RESPIRATORY FAILURE, UNSP W HYPOXIA OR HYPERCAPNIA (9) Functional quadriplegia Code(s): R53.2 - FUNCTIONAL QUADRIPLEGIA (10) Parkinson disease Code(s): G20 - PARKINSON'S DISEASE Assessment/Plan AC Mode of vent VTE prophylaxis BD TX PRN Dr Reyes Problem List - Problems (1) Pleural effusion Code(s): J90 - PLEURAL EFFUSION, NOT ELSEWHERE CLASSIFIED (2) Anemia Code(s): D64.9 - ANEMIA, UNSPECIFIED Qualifiers: Anemia type: iron deficiency (3) Dislodged jejunostomy tube Code(s): T85.528A - DISPLACEMENT OF GASTROINTESTINAL PROSTH DEV/GRFT, INIT (4) Ileitis Code(s): K52.9 - NONINFECTIVE GASTROENTERITIS AND COLITIS, UNSPECIFIED (5) Leukocytosis Code(s): D72.829 - ELEVATED WHITE BLOOD CELL COUNT, UNSPECIFIED (6) Pneumonia Code(s): J18.9 - PNEUMONIA, UNSPECIFIED ORGANISM (7) COPD (chronic obstructive pulmonary disease) Code(s): J44.9 - CHRONIC OBSTRUCTIVE PULMONARY DISEASE, UNSPECIFIED (8) Chronic respiratory failure Code(s): J96.10 - CHRONIC RESPIRATORY FAILURE, UNSP W HYPOXIA OR HYPERCAPNIA (9) Functional quadriplegia Code(s): R53.2 - FUNCTIONAL QUADRIPLEGIA (10) Parkinson disease Code(s): G20 - PARKINSON'S DISEASE
[2019-06-05] MEDS: KCL 10 MEQ IVPB 10 MEQ/100 ML INFUS.BAG IVPB SCH ×4 (14:18→15:59)
[2019-06-05 14:46] VITALS: TEMP 97.5
--- NOTE | 2019-06-05 14:56 | DS ---
Physical Examination Vital Signs: Vital Signs Temperature 97.5 F L 06/05/19 14:00 Pulse Rate 71 06/05/19 14:00 Respiratory Rate 14 06/05/19 14:00 Blood Pressure 142/67 06/05/19 14:00 O2 Sat by Pulse Oximetry (%) 100 06/05/19 09:00 Constitutional: Yes: No Distress, Calm HENT: Yes: Atraumatic, Normocephalic Neck: Yes: Supple Cardiovascular: Yes: Regular Rate and Rhythm Respiratory: Yes: Diminished Gastrointestinal: Yes: Distention, Other (peg, hernia) Musculoskeletal: Yes: Other Extremities: Yes: Other Integumentary: Yes: Skin Tear Neurological: Yes: Confusion, Other Labs: CBC, BMP 06/05/19 07:15 06/05/19 07:15 Discharge Summary Problems reviewed: Yes Reason For Visit: DISLODGED JEJUNOSTOMY TUBE Current Active Problems Anemia (Acute) Bowel obstruction (Acute) Dislodged jejunostomy tube (Acute) Fecal impaction (Acute) Hyponatremia (Acute) Ileitis (Acute) Leukocytosis (Acute) Pleural effusion (Acute) Pneumonia (Acute) Sepsis (Acute) Hospital Course: 68 year old male with PMH cerebral palsy, parkinsons disease, chronic respiratory failure - vent dependent, copd, jtube(for feeds) /gtube (for decompression) presents from [facility] for sepsis and j tube dislodgement. He has been seen by GI, pulmonology, surgery, palliative care and ID. GI recommends transfer to tertiary center for j/gtube placement. Palliative care saw the patient- family goals of care addressed- wish for G/J tube to be placed. He has been on IV zoysn for sepsis/LLL consolidation. Patient has been accepted by Dr. Abdullahi Grissom at [facility] for transfer. Condition: Fair - Instructions Referrals: Nicola Gomez MD [Primary Care Provider] - - Home Medications Comprehensive Discharge Medication List: Ambulatory Orders RX: Acetaminophen 650 mg GT Q6H 05/20/19 RX: Budesonide [Pulmicort 0.25 mg Nebulizer -] 1 neb IH BID 05/20/19 RX: Clorazepate Dipotassium 3.75 mg GT HS 05/20/19 RX: Heparin - 5,000 unit SQ BID 05/20/19 RX: Ipratropium/Albuterol Sulfate [Iprat-Albut 0.5-3(2.5) mg/3 ml] 3 ml IH QID 05/20/19 RX: Lamotrigine [Lamictal -] 50 mg GT BID 05/20/19 RX: Omeprazole Pediatric Solution [Omeprazole Pediatric Oral Solution] 20 ml GT DAILY 05/20/19 RX: Prednisone 10 mg GT DAILY 05/20/19 RX: Sod Phos Di, [place]/K Phos [place] [Phospha 250 Neutral Tablet] 250 mg GT BID 09/01 RX: Ferrous Sulfate [Feosol] 300 mg GT DAILY udc 05/22/19 Cinacalcet HCl [Sensipar] 60 mg GT DAILY 05/28/19
--- NOTE | 2019-06-05 15:32 | PN ---
Progress Note (short form) - Note Progress Note: opens eyes trach to vent Vital Signs Period Temp Pulse Resp BP Sys/Gomez Pulse Ox Last 24 Hr 97.2 F-98.2 F 70-73 12-20 112-142/50-71 100-100 cor-rrr lungs decreased bs at bases abd soft,+GT to drainage ext no edema CBC, BMP 06/05/19 07:15 06/05/19 07:15 Microbiology 06/02/19 14:12 Blood - Peripheral Venous Blood Culture - Preliminary NO GROWTH OBTAINED AFTER 48 HOURS, INCUBATION TO CONTINUE FOR 3 DAYS. 06/02/19 14:12 Blood - Peripheral Venous Blood Culture - Preliminary NO GROWTH OBTAINED AFTER 48 HOURS, INCUBATION TO CONTINUE FOR 3 DAYS. 05/28/19 06:43 Blood - Peripheral Venous Blood Culture - Final NO GROWTH AFTER 5 DAYS INCUBATION 05/28/19 06:48 Blood - Peripheral Venous Blood Culture - Final NO GROWTH AFTER 5 DAYS INCUBATION a/p 68 yo man with chronic resp failure, copd, MS/MR leukocytosis-improved ?secondary to pneumonia, fecal retention has completed 7 days zosyn, observe off antiibotics Problem List - Problems (1) Dislodged jejunostomy tube Code(s): T85.528A - DISPLACEMENT OF GASTROINTESTINAL PROSTH DEV/GRFT, INIT (2) Leukocytosis Code(s): D72.829 - ELEVATED WHITE BLOOD CELL COUNT, UNSPECIFIED (3) Pneumonia Code(s): J18.9 - PNEUMONIA, UNSPECIFIED ORGANISM (4) Ileitis Code(s): K52.9 - NONINFECTIVE GASTROENTERITIS AND COLITIS, UNSPECIFIED (5) Chronic respiratory failure Code(s): J96.10 - CHRONIC RESPIRATORY FAILURE, UNSP W HYPOXIA OR HYPERCAPNIA
[2019-06-06 01:26] VITALS: BP 114/72; PULSE 99
== END 2019-06-05 22:50 | disposition short-term general hospital (02) | DRG 870 ==
LOC: JER 06:49 → JERBED 15:41 → J5S 05-30 13:32
PROVIDERS: ADMIT Family Medicine; ATTEND Family Medicine
PROC: 5A1955Z Respiratory Ventilation, Greater than 96 Consecutive Hours (ICD-10-PCS; principal; 2019-05-28)
PROC: 0DP6XUZ Removal of Feeding Device from Stomach, External Approach (ICD-10-PCS; 2019-05-28)
DX: A41.89 Other specified sepsis (principal); R53.2 Functional quadriplegia; J18.9 Pneumonia, unspecified organism; Z43.1 Encounter for attention to gastrostomy; T85.528A Displacement of other gastrointestinal prosthetic devices, implants and grafts, initial encounter; K56.609 Unspecified intestinal obstruction, unspecified as to partial versus complete obstruction; J96.10 Chronic respiratory failure, unspecified whether with hypoxia or hypercapnia; J90 Pleural effusion, not elsewhere classified; E87.1 Hypo-osmolality and hyponatremia; K56.41 Fecal impaction; G80.9 Cerebral palsy, unspecified; D72.829 Elevated white blood cell count, unspecified; Y84.8 Other medical procedures as the cause of abnormal reaction of the patient, or of later complication, without mention of misadventure at the time of the procedure; Z93.0 Tracheostomy status; J44.9 Chronic obstructive pulmonary disease, unspecified; F20.9 Schizophrenia, unspecified; G20 Parkinson's disease; F78 Other intellectual disabilities; D64.9 Anemia, unspecified; K52.9 Noninfective gastroenteritis and colitis, unspecified; R00.0 Tachycardia, unspecified; G40.909 Epilepsy, unspecified, not intractable, without status epilepticus
CPT/HCPCS: 36415; 44799; 71045-TC-FY; 74018-TC-FY; 74150-TC; 74176-TC; 80048; 80053; 82272; 82607; 82728; 82746; 83540; 83550; 83605; 83735; 84132; 84439; 84443; 84481; 85025; 85610; 85730; 86850; 86900; 86901; 87040; 93005; 93010; 94002; 94640; 99284-25; 99285-25; J1756

== ENCOUNTER 2019-06-21 10:14 | Emergency (ER) | payer OTHER ==
[2019-06-21] MEDS ORDERED: IOHEXOL 180 MG/1 ML ML IJ ONE (10:28)
--- NOTE | 2019-06-21 10:40 | PDOC ---
Documentation entered by Vladimir Dumont SCRIBE, acting as scribe for Elaine Buckley DO. Elaine Buckley DO: This documentation has been prepared by the Tim stubbs Daniel, SCRIBE, under my direction and personally reviewed by me in its entirety. I confirm that the documentation accurately reflects all work, treatment, procedures, and medical decision making performed by me. Attending Attestation - Resident Resident Name: Jesse Hudson - ED Attending Attestation I have performed the following: I have examined & evaluated the patient, The case was reviewed & discussed with the resident, I agree w/resident's findings & plan, Exceptions are as noted - HPI HPI: 06/21/19 10:29 The patient is a 68 year old female with a past medical history of cerebral palsy, intellectual disabilities, Parkinson's Disease, chronic respiratory failure s/p trach- vent dependent, COPD, J-tube (for feeds), and G tube (for decompression) here today from [facility] for evaluation of G tube replacement. Patient was sent from [facility] after his G-tube became dislodged at approximately 9:30 AM when staff was turning the patient. Allergies: NKA - Physicial Exam PE: 06/21/19 10:40 Constitutional: No acute distress. Head: Normocephalic. Atraumatic Eyes: PERRL. EOMI. Conjunctivae are not pale. ENT: +grinds teeth. Mucous membranes are moist and intact. Posterior pharynx without exudates or erythema. Uvula midline. Neck: +trach in place. Supple. Full ROM. No lymphadenopathy. Cardiovascular: Regular rate. Regular rhythm. S1, S2 regular. Distal pulses are 2+ and symmetric. Pulmonary/Chest: +diminished breath sounds at the bases with transmitted upper airway trach sounds. No evidence of respiratory distress. No wheezing, rales or rhonchi. Abdominal: +g-tube site with mild erythema. +J-tube in place. +large ventral hernia that is easily reducible. Soft and non-distended. There is no tenderness. No rebound, guarding or rigidity. No organomegaly. Good bowel soun ds. Back: No CVA tenderness. Musculoskeletal: +contracted lower extremities. +extended upper extremities. No edema. No cyanosis. No clubbing. No calf tenderness. Radial/pedal pulses are intact and 2+ bilaterally Skin: Skin is warm and dry. No petechiae. No purpura. Neurological: Non verbal. Cranial nerves II-XII are grossly intact. - Medical Decision Making 06/21/19 10:39 a/p: 68yo male sent from [facility] for PEG tube replacement -peg fell out around 930a, [facility] placed a lozano in the site -16f peg was in place before according to [facility] -peg replaced on first attempt without difficulty and balloon was inflated -will order xray for confirmation -pt unable to provide any hx -resident discussed the case with [facility] who provided the hx 06/21/19 11:46 resident discussed the case with radiology who states peg in place pt stable for dc back to [facility] will need transportation
--- NOTE | 2019-06-21 10:42 | PDOC ---
History of Present Illness - General Chief Complaint: G Tube Problem Stated Complaint: G TUBE KREPLACEMENT Time Seen by Provider: 06/21/19 10:21 History Source: Patient Exam Limitations: No Limitations - History of Present Illness Initial Comments: 06/21/19 10:37 68 yo M with a hx of cerebral palsy (on ventilator with trach), COPD, Parkinson's Disease, anemia, and GERD presents to the emergency department with G tube replacement. Per the nursing staff, at approximately 9:30 am, the tube fell out after turning the patient. The patient was recently within the past 1-2 weeks at [facility] with G tube placed. Per the nursing staff, they used the old tract from a previous G tube that was placed 3 months ago per the nursing staff. Unable to collect history from the patient due to clinical condition. Past History - Past Medical History Allergies/Adverse Reactions: Allergies Allergy/AdvReac Type Severity Reaction Status Date / Time No Known Allergies Allergy Verified 06/21/19 10:46 Home Medications: Ambulatory Orders Acetaminophen 650 mg GT Q6H PRN 05/20/19 Budesonide [Pulmicort 0.25 mg Nebulizer -] 1 neb IH BID 05/20/19 Clorazepate Dipotassium 3.75 mg GT HS 05/20/19 Heparin - 5,000 unit SQ BID 05/20/19 Ipratropium/Albuterol Sulfate [Iprat-Albut 0.5-3(2.5) mg/3 ml] 3 ml IH QID 05/20/19 Lamotrigine [Lamictal -] 50 mg GT BID 05/20/19 Omeprazole Pediatric Solution [Omeprazole Pediatric Oral Solution] 20 ml GT DAILY 05/20/19 Prednisone 10 mg GT DAILY 05/20/19 Sod Phos Di, [place]/K Phos [place] [Phospha 250 Neutral Tablet] 250 mg GT BID 05/20/19 Ferrous Sulfate [Feosol] 300 mg GT DAILY udc 05/22/19 Potassium Chloride [Potassium Chloride Oral Liquid] 20 meq GT DAILY 06/21/19 Asthma: Yes COPD: Yes (resp failure,trach-vent dependent,pneumonia) GI Disorders: (pt has a jtube that is clamped and a dislodged gtube,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) HTN: Yes Psychiatric Problems: Yes (schizopfrenia) Seizures: Yes - Immunization History Immunization Up to Date: Yes - Psycho Social/Smoking Cessation Hx Smoking History: Former smoker Have you smoked in the past 12 months: No Hx Alcohol Use: No Drug/Substance Use Hx: No Substance Use Type: None Hx Substance Use Treatment: No Review of Systems - Review of Systems Able to Perform ROS?: No (clinical condition) *Physical Exam - Vital Signs Last Vital Signs Temp Pulse Resp BP Pulse Ox 19 06/21/19 10:29 - Physical Exam General Appearance: Yes: Nourished, Appropriately Dressed, Other (contracted LE b/l, UE extended b/l). No: Apparent Distress HEENT: positive: EOMI, JAMES, Pharynx Normal (missing most of dentition), Other. negative: Pale Conjunctivae, Scleral Icterus (R), Scleral Icterus (L) Neck: positive: Trachea midline, Supple. negative: Tender, Lymphadenopathy (R), Lymphadenopathy (L) Respiratory/Chest: positive: Lungs Clear, Normal Breath Sounds, Other (diminshed breathsounds bilaterally. upper airway transmission of breathsounds secondary to ventilator). negative: Chest Tender, Respiratory Distress, Accessory Muscle Use Cardiovascular: positive: Regular Rhythm, Regular Rate, S1, S2. negative: Systolic Murmur Gastrointestinal/Abdominal: positive: Normal Bowel Sounds, Other (large ventral hernia noted which is reducible. Patient has a JT in place. erythema at the site of the g tube mild in nature. no purulent discharge). negative: Tender Lymphatic: negative: Adenopathy Musculoskeletal: negative: Normal Inspection (refer to constitutional notes) Integumentary: positive: Normal Color, Dry, Warm Neurologic: positive: Alert ED Treatment Course - RADIOLOGY Radiology Studies Ordered: Category Date Time Status ABDOMEN-KUB FLAT PLATE [RAD] Stat Radiology 06/21/19 10:28 Ordered Medical Decision Making - Medical Decision Making 68 yo M with a hx of cerebral palsy (on ventilator with trach), COPD, Parkinson's Disease, anemia, and GERD presents to the emergency department with G tube replacement. Initial vitals; Initial Vital Signs Temp Pulse Resp BP Pulse Ox 98.5 F 91 H 18 154/79 100 06/21/19 10:15 06/21/19 10:15 06/21/19 10:15 06/21/19 10:15 06/21/19 10:15 Work up: patient presents to the emergency department with g tube placement G tube was replaced with 16 [place]. Awaiting xray results Spoke to Dr. Altman who is reading today. He states there is no extravasation. Will discharge back home. 06/21/19 11:36 Discharge - Discharge Information Problems reviewed: Yes Clinical Impression/Diagnosis: Gastrointestinal tube present - Admission No - Follow up/Referral - Patient Discharge Instructions Patient Printed Discharge Instructions: How to Care for Your PEG Tube Additional Instructions: Please maintain proper care for the g tube. Please return to the hospital if it falls out again, is clogged, or he develops fevers and nausea vomiting. Please follow up with his primary care provider within 1 week after discharge for follow up care and management. Thank you. - Post Discharge Activity
[2019-06-21 11:34] VITALS: TEMP 98.5; BMI 24.3
[2019-06-21 12:54] VITALS: BP 141/75; PULSE 90
== END 2019-06-21 13:49 ==
LOC: JER 10:14
PROC: 0D20XUZ Change Feeding Device in Upper Intestinal Tract, External Approach (ICD-10-PCS; principal; 2019-06-21)
DX: Z43.1 Encounter for attention to gastrostomy (principal); G80.9 Cerebral palsy, unspecified; G20 Parkinson's disease; K21.9 Gastro-esophageal reflux disease without esophagitis; Z99.11 Dependence on respirator [ventilator] status
CPT/HCPCS: 43762; 74018-TC-FY; 99283-25

== ENCOUNTER 2019-09-22 19:46 | Emergency (ER) | payer OTHER ==
[2019-09-22 20:38] VITALS: TEMP 99.5; BMI 21.5
[2019-09-22 23:53] VITALS: BP 107/60; PULSE 82
== END 2019-09-22 23:55 | disposition home or self-care (01) ==
LOC: JER 19:46
DX: K94.23 Gastrostomy malfunction (principal); B35.9 Dermatophytosis, unspecified
CPT/HCPCS: 74018-TC-FY; 99283-25

== ENCOUNTER 2019-09-28 09:58 | Inpatient (IN) | payer OTHER ==
[2019-09-28] MEDS ORDERED: SODIUM CHLORIDE IV ONE (10:16)
[2019-09-28 11:26] LABS: BASO % 0.9 % (0-2.0); EOS % 0.5 % (0-4.5); HEMATOCRIT 34.4 % (35.4-49); HEMOGLOBIN 11.1 GM/dL (11.7-16.9); LYMPH % 14.5 % (8-40); MCH 28.5 pg (25.7-33.7); MCHC 32.2 g/dl (32.0-35.9); MEAN CELL VOLUME 88.6 fl (80-96); MEAN PLT VOLUME 7.4 fl (7.5-11.1); MONO % 5.9 % (3.8-10.2); NEUT % 78.2 % (42.8-82.8); PLATELET COUNT 589 K/MM3 (134-434); RBC 3.88 M/mm3 (4.00-5.60); RDW 18.3 % (11.9-15.9); WHITE BLOOD COUNT 12.8 K/mm3 (4.0-10.0)
[2019-09-28] MEDS ORDERED: ACETAMINOPHEN 1000 MG/100 ML VIAL (NON FORMULARY) IVPB ONE (12:11)
--- NOTE | 2019-09-28 12:14 | PDOC ---
History of Present Illness - General Chief Complaint: G Tube Problem Stated Complaint: G TUBE PROBLEM Time Seen by Provider: 09/28/19 10:05 History Source: [facility] Records - History of Present Illness Initial Comments: 09/28/19 14:20 69M PMH COPD, Parkinsons, Schizophrenia, cerebral palsy, trach dependent BIBEMS from [facility] for clogged j-tubed. IR placed G and J tubes on 09/14/19; G-tube was replaced on 09/22/19 and used as decompression. Nonverbal. He is unable to contribute to medical history. Past History - Medical History Allergies/Adverse Reactions: Allergies Allergy/AdvReac Type Severity Reaction Status Date / Time No Known Allergies Allergy Verified 10/10/19 20:41 Home Medications: Ambulatory Orders Acetaminophen [Tylenol] 650 mg PO TID 10/11/19 Collagenase Clostridium Hist. [Santyl -] 1 applic TP DAILY 10/11/19 Famotidine [Pepcid] 20 mg PO DAILY 10/11/19 Ferrous Sulfate [Feosol] 300 mg GT DAILY 10/11/19 Heparin - 5,000 unit SQ BID 10/11/19 L. Acidophilus/Pectin, [place] [Acidophilus Capsule] 1 each PO DAILY 10/11/19 Lamotrigine [Lamotrigine ER] 50 mg PO BID 10/11/19 Multivit-Minerals [Certavite-Antioxidant Liquid] 15 ml PO DAILY 10/11/19 Nystatin Cream [Mycostatin Cream -] 1 applic BID 10/11/19 Omeprazole 20 mg PO DAILY 10/11/19 clonazePAM [Klonopin -] 0.5 mg PO DAILY 10/11/19 Asthma: Yes COPD: Yes (resp failure,trach-vent dependent,pneumonia) GI Disorders: (pt has a jtube that is clamped and a dislodged gtube,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) HTN: Yes Psychiatric Problems: Yes (schizopfrenia) Seizures: Yes - Surgical History Abdominal Surgery: Yes (G tube and J tube) - Immunization History Immunization Up to Date: Yes - Psycho-Social/Smoking History Smoking History: Unknown if ever smoked Have you smoked in the past 12 months: No Hx Alcohol Use: No Drug/Substance Use Hx: No Substance Use Type: None Hx Substance Use Treatment: No Review of Systems - Review of Systems Able to Perform ROS?: No *Physical Exam - Vital Signs Last Vital Signs Temp Pulse Resp BP Pulse Ox 101.1 F H 104 H 18 115/68 100 09/28/19 10:13 09/28/19 11:37 09/28/19 11:37 09/28/19 11:37 09/28/19 11:37 - Physical Exam GENERAL: Awake, in no acute distress HEAD: No signs of trauma, normocephalic, atraumatic EYES: PERRLA, EOMI, sclera anicteric, conjunctiva clear ENT: Auricles normal inspection, hearing grossly normal, nares patent, oropharynx clear without exudates. Moist mucosa NECK: Normal ROM, supple, no lymphadenopathy, JVD, or masses LUNGS: No distress, speaks full sentences, clear to auscultation bilaterally HEART: Regular rate and rhythm, normal S1 and S2, no murmurs, rubs or gallops, peripheral pulses normal and equal bilaterally. ABDOMEN: J tube in place, no surrounding erythema. Soft, nontender, normoactive bowel sounds. No guarding, no rebound. No masses EXTREMITIES : Normal inspection, Normal range of motion, no edema. No clubbing or cyanosis NEUROLOGICAL: Unable to assess. SKIN: Warm, Dry, normal turgor, no rashes or lesions noted ED Treatment Course - LABORATORY CBC & Chemistry Diagram: 10/07/19 17:15 10/09/19 08:15 - ADDITIONAL ORDERS Additional order review: Laboratory Results 09/28/19 09/28/19 09/28/19 10:55 10:55 10:17 PT with INR Cancelled INR Cancelled PTT (Actin FS) Cancelled Lactic Acid 1.2 Troponin I 0.02 09/28/19 10:55 RBC 3.88 L MCV 88.6 MCHC 32.2 RDW 18.3 H MPV 7.4 L Neutrophils % 78.2 Lymphocytes % 14.5 Monocytes % 5.9 Eosinophils % 0.5 Basophils % 0.9 - RADIOLOGY Radiology Studies Ordered: Category Date Time Status ABDOMEN & PELVIS CT WITH CONTR [CT] Stat CT Scan 09/28/19 11:[address] WITHOUT CONTRAST [CT] Stat CT Scan 09/28/19 11:23 Ordered Medical Decision Making - Medical Decision Making 09/28/19 14:21 69M PMH COPD, Parkinsons, Schizophrenia, cerebral palsy, trach dependent, recently evaluated in ED for J tube blockage, unable to be resolved at that time, found to be febrile, tachycardic on arrival. Ddx sepsis given meeting SIRS criteria, etiologies include pneumonia, UTI, abscess around G/J tube sites. Ulcer on R flank unlikely as source for sepsis, healing well no surrounding erythema. Plan: Sepsis workup Blood cultures UA Urine culture EKG CXR Dispo: Admit --- UA - 3+ leuk esterase Plan for azithromycin, ceftriaxone for abx coverage. Plan for admission for IR J tube replacement. Discharge - Discharge Information Problems reviewed: Yes Clinical Impression/Diagnosis: Sepsis, Fever, Dislodged jejunostomy tube Condition: Stable - Follow up/Referral - Patient Discharge Instructions - Post Discharge Activity
[2019-09-28 12:18] LABS: VENOUS PC02 33.9 mmHg (38-52); VENOUS PH 7.45 (7.31-7.41); VENOUS PO2 132.6 mmHg (28-48)
[2019-09-28 12:20] LABS: VENOUS BASE EXCESS -0.8 mmol/L (-2-2)
[2019-09-28 12:26] LABS: ALBUMIN 2.2 g/dl (3.4-5.0); BILIRUBIN,TOTAL 0.9 mg/dL (0.2-1); BLOOD UREA NITROGEN 27.5 mg/dL (7-18); CALCIUM 11.7 mg/dL (8.5-10.1); CREATININE 0.8 mg/dL (0.55-1.3); POTASSIUM 4.8 mmol/L (3.5-5.1); TOT PROT 7.6 g/dl (6.4-8.2)
[2019-09-28 12:31] LABS: PH,URINE 8.5 (5.0-8.0); URINE APPEARANCE Cloudy; URINE BILIRUBIN 2+ (NEGATIVE); URINE GLUCOSE (UA) Negative (NEGATIVE); URINE KETONE Negative (NEGATIVE); URINE LEUK ESTERASE 3+ (NEGATIVE); URINE NITRITE Negative (NEGATIVE); URINE PROTEIN 1+ (NEGATIVE); URINE UROBILINOGEN 0.2 mg/dL (0.2-1.0)
--- NOTE | 2019-09-28 12:35 | PDOC ---
Documentation entered by Katie Belcher SCRIBE, acting as scribe for Michael Cordoba MD. Michael Cordoba MD: This documentation has been prepared by the Simi stubbs Brenda, SCRIBE, under my direction and personally reviewed by me in its entirety. I confirm that the documentation accurately reflects all work, treatment, procedures, and medical decision making performed by me. Attending Attestation - Resident Resident Name: Arian Landis - ED Attending Attestation I have performed the following: I have examined & evaluated the patient, The case was reviewed & discussed with the resident, I agree w/resident's findings & plan, Exceptions are as noted - HPI HPI: 09/28/19 10:55 The patient is a 69 year old male, with a significant PMH of cerebral palsy, trach dependant, COPD, was here on 09/11-09/16 for dislodged G/J tube who presents to the emergency department with a clogged Jtube. Pt was seen over the weekend for same issue, instructed to return on Saturday when IR was available. Pt unable to contribute additional history. - Physicial Exam PE: 09/28/19 12:35 See resident exam - Critical Care Time Total Critical Care Time: 45 Critical Care Statement: The care of this patient involved high complexity decision making to prevent further life threatening deterioration of the patient's condition and/or to evaluate & treat vital organ system(s) failure or risk of failure. - Medical Decision Making 09/28/19 12:35 69 M here for J tube malfunction. Also incidentally found to be febrile in ED. Will evaluate for infectious processes. Was recently admitted 2 weeks ago, making him high risk for COVID. - Labs, cultures - CXR - UA Discharge - Discharge Information Problems reviewed: Yes Clinical Impression/Diagnosis: Sepsis, Fever, Dislodged jejunostomy tube - Follow up/Referral - Patient Discharge Instructions - Post Discharge Activity
[2019-09-28] MEDS ORDERED: CEFTRIAXONE 2 GM in DEXTROSE 5%-WATER 100 ML IVPB ONE (12:45)
[2019-09-28] MEDS ORDERED: ACETAMINOPHEN INJECTION 100 ML IVPB ONE (12:49)
[2019-09-28] MEDS ORDERED: CEFTRIAXONE 2 GM/100 ML BAG IVPB ONE (12:58)
[2019-09-28 14:08] LABS: EPI CELLS 3.1 /uL (0-25.1); HYALINE CASTS 8.82 /uL (0-3.1); URINE BACTERIA 1717.9 /uL (0-1359); URINE WBC 167 /uL (0-25.8)
[2019-09-28] MEDS ORDERED: AZITHROMYCIN IVPB 500 MG in DEXTROSE 5%-WATER - 250 ML IVPB ONE (14:45)
[2019-09-28] MEDS ORDERED: AZITHROMYCIN IVPB 500 MG/250 ML BAG IVPB ONE (14:49)
--- NOTE | 2019-09-28 14:59 | EKG ---
Test Reason : Blood Pressure : / mmHG Vent. Rate : 105 BPM Atrial Rate : 105 BPM P-R Int : 152 ms QRS Dur : 084 ms QT Int : 330 ms P-R-T Axes : 055 047 051 degrees QTc Int : 436 ms SINUS TACHYCARDIA Inferolateral ST elevation noticed previously as well OTHERWISE NORMAL ECG WHEN COMPARED WITH ECG OF 12-SEP-2019 11:22, NO SIGNIFICANT CHANGE WAS FOUND Confirmed by Rashel Anderson ([id number]) on 09/28/2019 2:59:08 PM Referred By: Confirmed By:Rashel Anderosn
[2019-09-28] MEDS ORDERED: ACETAMINOPHEN 650 MG/20.3 ML ORAL SOLUTION (CUPS) GT PRN (17:40)
[2019-09-28] MEDS ORDERED: DEXTROSE 5%-LACTATED RINGERS 1,000 ML IV SCH (17:45)
[2019-09-28] MEDS ORDERED: D5-1/2NS+20 MEQ KCL - 20 MEQ/1,000 ML INFUS.BAG IV SCH (17:45)
[2019-09-28] MEDS ORDERED: ALBUTEROL SO4 0.083% IH SOL 2.5 MG/3 ML VIAL.NEB. NEB ONE (20:51)
[2019-09-28] MEDS: ALBUTEROL SO4 0.083% IH SOL 2.5 MG/3 ML VIAL.NEB. NEB SCH (21:10)
[2019-09-28] MEDS ORDERED: SODIUM CHLORIDE 1,000 ML IV STA (22:42)
--- NOTE | 2019-09-28 23:13 | HP ---
Admitting History and Physical - Primary Care Physician PCP: Mindy Badillo - Admission Chief Complaint: Fever, Lethargy History of Present Illness: This is a 69 y/o male from [facility] with a PMHx of COPD (Trach Vent dependent), Acute on Chronic Respiratory Failure, Dysphagia, Parkinson, Seizure Disorder, Schizophrenia, Cerebral Palsy, GERD, Pneumonia, Iron Deficiency Anemia, Hyperparathyroidism, Sacral Ulcer, Buttock Ulcer, recently evaluated in ED for J tube blockage, unable to be resolved at that time. Who presents to the ED for clogged J- Tube, was febrile and tachycardic on arrival. Patient is non-verbal unable to provide HPI. Patient is now hypotensive after fluid boluses and maintenance. Patient will be admitted to ICU for Severe Sepsis. ED course was noted for: (1) Severe Sepsis Criteria Met: T 101.1, P 106, BP 63/33, WBC 12.8 (2) UTI: +3 blood, +3 leukocyte esterase, 167 WBC, 1717 Bacteria (3) Chest CT: extensive consolidation/atelectasis within the right lower lobe History Source: Medical Record, Transfer Record Limitations to Obtaining History: Clinical Condition, Physical Impairment - Past Medical History PHARMACY AIDE: Yes: Parkinson's, Seizure, Other (CP, MR) Pulmonary: Yes: Bronchitis, COPD, O2 Dependent (trach- vent dependent), Pneumonia, Previously Intubated, Other (Vent dependent via trach) Renal/: Yes: Other Infectious Disease: Yes: Other (resistant Pseudomonas) Psych: Yes: Schizophrenia Musculoskeletal: Yes: Other (functional quadriplegia) - Past Surgical History Additional Past Surgical History: Tracheotomy G-J Tube - Advance Directives Advance Directives: Yes: Health Care Proxy - Smoking History Smoking history: Unknown if ever smoked Have you smoked in the past 12 months: No - Alcohol/Substance Use Hx Alcohol Use: No History of Substance Use: reports: None - Social History Usual Living Arrangement: Yes: [facility] ADL: Support Services History of Recent Travel: No Home Medications - Allergies Allergies/Adverse Reactions: Allergies Allergy/AdvReac Type Severity Reaction Status Date / Time No Known Allergies Allergy Verified 09/28/19 11:41 - Home Medications Home Medications: Ambulatory Orders Lactobacillus Acidophilus [Acidophilus] 1 each PO DAILY 07/23/19 Famotidine [Pepcid] 20 mg NGT BID oral.susp 07/28/19 Acetaminophen Oral Solution [Tylenol Oral Solution -] 650 mg GT Q4H PRN soln.oral 09/17/19 Heparin - 5,000 unit SQ BID vial 09/17/19 Lamotrigine [Lamictal -] 50 mg PO BID tablet 09/17/19 Ferrous Sulfate [Feosol] 300 mg GT DAILY 09/28/19 Multivit-Minerals [Certavite-Antioxidant Liquid] 1 cup GT DAILY 09/28/19 Nystatin Cream [Mycostatin Cream -] 100,000 units TP TID 09/28/19 Omeprazole Pediatric Solution [Omeprazole Pediatric Oral Solution] 20 ml GT DAILY 09/28/19 clonazePAM [Klonopin -] 0.25 mg GT DAILY 09/28/19 Family Medical History Family History: Unable to Obtain Review of Systems Unable to obtain ROS, reason: Clinical Condition Physical Examination Vital Signs: Vital Signs Temperature 99.9 F H 09/28/19 16:34 Pulse Rate 89 09/28/19 18:47 Respiratory Rate 16 09/28/19 20:31 Blood Pressure 78/45 L 09/28/19 19:00 O2 Sat by Pulse Oximetry (%) 100 09/28/19 20:31 Constitutional: Yes: Moderate Distress, Thin Eyes: Yes: Conjunctiva Clear, PERRL HENT: Yes: Atraumatic, Normocephalic Neck: Yes: Other (trach collar-vent) Cardiovascular: Yes: Tachycardia, S1, S2 Respiratory: Yes: Diminished, Mechanically Ventilated (with trach), Rhonchi Gastrointestinal: Yes: Soft, Hypoactive Bowel Sounds, Other (G-J Tube) Renal/: Yes: [place] Present Breast(s): Yes: WNL Edema: No Peripheral Pulses WNL: Yes Neurological: Yes: Tremors, Other (non-verbal) Labs: CBC, BMP 09/28/19 10:55 09/28/19 10:17 Laboratory Results - last 24 hr 09/28/19 09/28/19 09/28/19 10:17 10:55 10:55 WBC 12.8 H RBC 3.88 L Hgb 11.1 L Hct 34.4 L D MCV 88.6 MCH 28.5 MCHC 32.2 RDW 18.3 H Plt Count 589 H MPV 7.4 L Absolute Neuts (auto) 10.0 H Neutrophils % 78.2 Lymphocytes % 14.5 Monocytes % 5.9 Eosinophils % 0.5 Basophils % 0.9 Nucleated RBC % 0 PT with INR Cancelled INR Cancelled PTT (Actin FS) Cancelled VBG pH POC VBG pCO2 POC VBG pO2 VBG HCO3 VBG O2 Sat (Yen) VBG Base Excess Sodium 145 Potassium 4.8 Chloride 111 H Carbon Dioxide 26 Anion Gap 8 BUN 27.5 H Creatinine 0.8 Est GFR (CKD-EPI)AfAm 105.64 Est GFR (CKD-EPI)NonAf 91.15 POC Glucometer Random Glucose 80 Lactic Acid Calcium 11.7 H Total Bilirubin 0.9 AST 39 H ALT 17 Alkaline Phosphatase 100 Troponin I 0.02 Total Protein 7.6 Albumin 2.2 L Urine Color Urine Appearance Urine pH Ur Specific [place] Urine Protein Urine Glucose (UA) Urine Ketones Urine Blood Urine Nitrite Urine Bilirubin Urine Urobilinogen Ur Leukocyte Esterase Urine WBC (Auto) Urine RBC (Auto) Urine Casts (Auto) U Pathogenic Cast Auto U Epithel Cells (Auto) Urine Bacteria (Auto) 09/28/19 09/28/19 09/28/19 10:55 11:04 11:15 WBC RBC Hgb Hct MCV MCH MCHC RDW Plt Count MPV Absolute Neuts (auto) Neutrophils % Lymphocytes % Monocytes % Eosinophils % Basophils % Nucleated RBC % PT with INR INR PTT (Actin FS) VBG pH 7.45 H POC VBG pCO2 33.9 L POC VBG pO2 132.6 H VBG HCO3 22.8 L VBG O2 Sat (Yen) 98.8 H VBG Base Excess -0.8 Sodium Potassium Chloride Carbon Dioxide Anion Gap BUN Creatinine Est GFR (CKD-EPI)AfAm Est GFR (CKD-EPI)NonAf POC Glucometer Random Glucose Lactic Acid 1.2 Calcium Total Bilirubin AST ALT Alkaline Phosphatase Troponin I Total Protein Albumin Urine Color Green Urine Appearance Cloudy Urine pH 8.5 H D Ur Specific [place] 1.025 Urine Protein 1+ H Urine Glucose (UA) Negative Urine Ketones Negative Urine Blood 3+ H Urine Nitrite Negative Urine Bilirubin 2+ H Urine Urobilinogen 0.2 Ur Leukocyte Esterase 3+ H Urine WBC (Auto) 167 Urine RBC (Auto) 148.0 Urine Casts (Auto) 8.82 U Pathogenic Cast Auto None seen U Epithel Cells (Auto) 3.1 Urine Bacteria (Auto) 1717.9 06/15/20 17:40 WBC RBC Hgb Hct MCV MCH MCHC RDW Plt Count MPV Absolute Neuts (auto) Neutrophils % Lymphocytes % Monocytes % Eosinophils % Basophils % Nucleated RBC % PT with INR INR PTT (Actin FS) VBG pH POC VBG pCO2 POC VBG pO2 VBG HCO3 VBG O2 Sat (Yen) VBG Base Excess Sodium Potassium Chloride Carbon Dioxide Anion Gap BUN Creatinine Est GFR (CKD-EPI)AfAm Est GFR (CKD-EPI)NonAf POC Glucometer 87 Random Glucose Lactic Acid Calcium Total Bilirubin AST ALT Alkaline Phosphatase Troponin I Total Protein Albumin Urine Color Urine Appearance Urine pH Ur Specific [place] Urine Protein Urine Glucose (UA) Urine Ketones Urine Blood Urine Nitrite Urine Bilirubin Urine Urobilinogen Ur Leukocyte Esterase Urine WBC (Auto) Urine RBC (Auto) Urine Casts (Auto) U Pathogenic Cast Auto U Epithel Cells (Auto) Urine Bacteria (Auto) Intake & Output 09/26/19 09/27/19 09/28/19 09/29/19 23:59 23:59 23:59 23:59 Output Total 25 Balance -25 Weight 53.66 kg Current Medications Generic Name Dose Route Start Last Admin Trade Name Freq PRN Reason Stop Dose Admin Acetaminophen 650 mg 09/28/19 17:40 Tylenol Oral Solution - GT Q4H PRN PAIN 1-3 Albuterol Sulfate 1 amp 09/28/19 20:00 09/28/19 21:10 Ventolin 0.083% Nebulizer Soln - NEB 1 amp RQID ELOINA Administration Chlorhexidine Gluconate 1 applic 09/29/19 22:00 Hibiclens For Decolonization - TP HS ELOINA Clonazepam 0.25 mg 09/29/19 10:00 Klonopin - GT DAILY ELOINA Famotidine 20 mg 09/28/19 22:00 09/28/19 23:59 Pepcid NGT Not Given BID ELOINA Heparin Sodium (Porcine) 5,000 unit 09/28/19 22:00 Heparin - SQ BID ELOINA Dextrose/Lactated Ringer's 1,000 mls @ 100 mls/hr 09/28/19 17:45 09/28/19 17:55 D5-Lr - IV 100 mls/hr ASDIR ELOINA Administration Potassium Chloride/Dextrose/Sod Cl 20 meq in 1,000 mls @ 75 mls/hr 09/28/19 17:45 09/28/19 18:30 D5-1/2ns+20 Meq Kcl - IV 75 mls/hr ASDIR ELOINA Administration Levofloxacin 500 mg in 100 mls @ 100 mls/hr 09/28/19 18:00 09/28/19 18:03 Levaquin 500 Mg Premixed Ivpb - IVPB 100 mls/hr DAILY ELOINA Administration Protocol Gentamicin Sulfate/Sodium Chloride 80 mg in 100 mls @ 100 mls/hr 09/28/19 23:00 Garamycin 80 Mg Premixed Ivpb - IVPB Q8H ELOINA Protocol Vancomycin HCl 1,000 mg/ 250 mls @ 166.667 mls/hr 09/28/19 23:00 Dextrose IVPB Q12H ELOINA Protocol Vancomycin HCl 1,000 mg in 250 mls @ 166.667 mls/hr 09/28/19 23:00 Vancomycin (Pre-Docked) IVPB 09/29/19 12:29 Q12H ELOINA Protocol Piperacillin Sod/Tazobactam 50 mls @ 100 mls/hr 09/28/19 23:15 Sod 3.375 gm/ Dextrose IVPB Q8H-IV ELOINA Protocol Piperacillin Sod/Tazobactam 50 mls @ 100 mls/hr 09/28/19 23:30 Sod 3.375 gm/ Dextrose IVPB 09/29/19 10:29 Q8H-IV ELOINA Protocol Cefepime HCl 2 gm in 50 mls @ 100 mls/hr 09/28/19 23:45 Maxipime 2gm Ivpb (Premix) IVPB Q8H-IV [facility] Protocol Lamotrigine 50 mg 09/28/19 22:00 09/28/19 23:59 Lamictal - PO Not Given BID [facility] Mupirocin 1 applic 09/28/19 23:15 Bactroban Ointment (For Decolonization) - NS 10/03/19 23:14 BID [facility] Nystatin 1 applic 09/28/19 22:00 Mycostatin Cream - TP TID [facility] Imaging - Results Chest X-ray: Report Reviewed, Image Reviewed Cat Scan: Report Reviewed, Image Reviewed EKG: Image Reviewed Problem List - Problems (1) Severe sepsis Assessment/Plan: Likely secondary to UTI vs Pneumonia qSOFA 2, High Risk Sofa Score 6 Criteria Met patient remains hypotensive post fluid bolus- MAP< 65 Blood Cultures-pending Urine Culture-pending Sputum Culture Chest Xray image, report reviewed- severely limited exam Chest CT image and report reviewed- extensive consolidation atelectasis within the right lower lobe Azithromycin, Ceftriaxone given in ED- will need to broaden coverage 2/2 Septic Shock, hx Pseudomonas (sputum) Appreciate Pulm/Critical Care Consult Appreciate ID consullt Will need Central Line w/pressors Monitor CBC, CMP Continue cardiac monitoring Code(s): A41.9 - SEPSIS, UNSPECIFIED ORGANISM; R65.20 - SEVERE SEPSIS WITHOUT SEPTIC SHOCK (2) Chronic respiratory failure Assessment/Plan: Trach Vent Dependent Continue Vent settings per [place] Chest Xray reviewed CT Chest reviewed VBG reviewed Appreciate Pulmonology consult Duonebs Monitor vitals Aspiration Precautions Code(s): J96.10 - CHRONIC RESPIRATORY FAILURE, UNSP W HYPOXIA OR HYPERCAPNIA Qualifiers: (3) Problem with gastrostomy tube Assessment/Plan: CTAP image, report- reviewed Appreciate IR Consult Hold meds Gentle IVF Code(s): K94.20 - GASTROSTOMY COMPLICATION, UNSPECIFIED (4) COPD (chronic obstructive pulmonary disease) Assessment/Plan: Continue home meds Trach collar w/vent Monitor vitals Code(s): J44.9 - CHRONIC OBSTRUCTIVE PULMONARY DISEASE, UNSPECIFIED Qualifiers: (5) Seizure disorder Assessment/Plan: Seizure Precautions Ativan prn Monitor vitals Code(s): G40.909 - EPILEPSY, UNSP, NOT INTRACTABLE, WITHOUT STATUS EPILEPTICUS (6) Parkinson disease Assessment/Plan: stable Continue home meds when GT replaced Will continue to monitor and treat with interventions accordingly Fall Precautions Code(s): G20 - PARKINSON'S DISEASE (7) Cerebral palsy Assessment/Plan: Continue home meds when GT replaced Code(s): G80.9 - CEREBRAL PALSY, UNSPECIFIED Qualifiers: (8) Fungal rash of torso Assessment/Plan: Wound Care Code(s): B36.9 - SUPERFICIAL MYCOSIS, UNSPECIFIED (9) Decubital ulcer Assessment/Plan: Wound Care Turn Q2H Code(s): L89.90 - PRESSURE ULCER OF UNSPECIFIED SITE, UNSPECIFIED STAGE (10) Functional quadriplegia Assessment/Plan: Complete immobility due to frailty, Cerebal Palsy Requires total care [id number] [place] as needed Heel Protectors Fall Precautions Code(s): R53.2 - FUNCTIONAL QUADRIPLEGIA Assessment/Plan This is a 69 y/o male from [facility] with a PMHx of COPD (Trach Vent dependent), Acute on Chronic Respiratory Failure, Dysphagia, Parkinson, Seizure Disorder, Schizophrenia, Cerebral Palsy, GERD, Pneumonia, Iron Deficiency Anemia, Hyperparathyroidism, Sacral Ulcer, Buttock Ulcer, recently evaluated in ED for J tube blockage, unable to be resolved at that time. Admitted to ICU for Severe Sepsis, UTI G-J Tube dysfunction for further evaluation of their emergent condition. Plan: See Problem List FEN D51/2NS@60ml/hr Replete lytes prn NPO DVT ppx OOB SCDs Heparin SQ Code Status: Full Code, HCP Dispo: Requires Inpatient Care Visit type - Emergency Visit Emergency Visit: Yes ED Registration Date: 09/28/19 Care time: The patient presented to the Emergency Department on the above date and was hospitalized for further evaluation of their emergent condition. - New Patient This patient is new to me today: Yes Date on this admission: 09/28/19 - Critical Care Critical Care patient: Yes Total Critical Care Time (in minutes): 45 Critical Care Statement: The care of this patient involved high complexity decision making to prevent further life threatening deterioration of the patient's condition and/or to evaluate & treat vital organ system(s) failure or risk of failure.
[2019-09-28] MEDS ORDERED: PIPERACILLIN/TAZOB 3.375 GM 3.375 GM in DEXTROSE 5%-WATER - 50 ML IVPB SCH ×2 (23:15→23:30)
[2019-09-28] MEDS ORDERED: LORazepam 2 MG/ML SDV VIAL ONE (23:20)
[2019-09-28] MEDS ORDERED: LORazepam 2 MG/ML SDV VIAL IVPUSH ONE (23:20)
--- NOTE | 2019-09-28 23:55 | CONSULT ---
Consultation: REQUESTING PROVIDER:Mara ly ELECTROPHYSIOLOGY SCIENTIST CONSULT REQUEST: We have been asked to medically evaluate this patient for (septic chock ). HISTORY OF PRESENT ILLNESS: history per chart as pt is not able to provide story This is a 69 y/o male from [facility] with a PMHx of COPD (Trach Vent dependent), Acute on Chronic Respiratory Failure, Dysphagia, Parkinsons, Unspecified Convulsions, Schizophrenia, Cerebral Palsy, GERD, Pneumonia, Iron Deficiency Anemia, Hyperparathyroidism, Sacral Ulcer, Buttock Ulcer, recently evaluated in ED for J tube blockage, unable to be resolved at that time. Who presents to the ED for clogged J- Tube, was febrile and tachycardic on arrival. Patient is non- verbal unable to provide HPI. Patient is now hypotensive after fluid boluses and maintenance. Patient will be admitted to ICU for Severe Sepsis. ED course was noted for: (1) Severe Sepsis Criteria Met: T 101.1, P 106, BP 63/33, WBC 12.8 (2) UTI: +3 blood, +3 leukocyte esterase, 167 WBC, 1717 Bacteria (3) Chest CT: extensive consolidation/atelectasis within the right lower lobe Recent Travel:none PAST MEDICAL HISTORY: see above PAST SURGICAL HISTORY: multiple surgery nancy on right thigh, back and abdomen Social History: Smoking:[place] Alcohol:unknown Drugs: unknown REVIEW OF SYSTEMS: un able to obtain PHYSICAL EXAMINATION Vital Signs - 24 hr 09/28/19 09/28/19 09/28/19 10:03 10:12 10:13 Temperature 101.1 F H Pulse Rate 106 H Pulse Rate [ Left] Respiratory 18 Rate Blood Pressure 115/83 Blood Pressure [Left] O2 Sat by Pulse 100 100 Oximetry (%) 09/28/19 09/28/19 09/28/19 10:29 11:37 13:06 Temperature Pulse Rate Pulse Rate [ 104 H 92 H Left] Respiratory 23 H 18 18 Rate Blood Pressure Blood Pressure 115/68 120/68 [Left] O2 Sat by Pulse 100 99 Oximetry (%) 09/28/19 09/28/19 09/28/19 14:15 14:36 16:00 Temperature 99.6 F Pulse Rate 89 Pulse Rate [ 62 82 Left] Respiratory 21 H 18 16 Rate Blood Pressure Blood Pressure 98/68 91/65 [Left] O2 Sat by Pulse 100 99 100 Oximetry (%) 09/28/19 09/28/19 09/28/19 16:19 16:34 17:30 Temperature 99.9 F H Pulse Rate 89 Pulse Rate [ Left] Respiratory 19 Rate Blood Pressure Blood Pressure 63/33 L [Left] O2 Sat by Pulse 100 Oximetry (%) 09/28/19 09/28/19 09/28/19 17:43 17:48 17:55 Temperature Pulse Rate Pulse Rate [ Left] Respiratory Rate Blood Pressure Blood Pressure 65/25 L 66/33 L 80/36 L [Left] O2 Sat by Pulse Oximetry (%) 09/28/19 09/28/19 09/28/19 18:00 18:14 18:15 Temperature Pulse Rate Pulse Rate [ Left] Respiratory Rate Blood Pressure Blood Pressure 76/58 L 76/42 L 66/25 L [Left] O2 Sat by Pulse Oximetry (%) 09/28/19 09/28/19 09/28/19 18:31 18:47 18:54 Temperature Pulse Rate Pulse Rate [ 89 Left] Respiratory 16 Rate Blood Pressure Blood Pressure 76/36 L 66/25 L 101/62 [Left] O2 Sat by Pulse 100 Oximetry (%) 09/28/19 09/28/19 19:00 20:31 Temperature Pulse Rate Pulse Rate [ Left] Respiratory 16 Rate Blood Pressure Blood Pressure 78/45 L [Left] O2 Sat by Pulse 100 Oximetry (%) GENERAL: Awake, alert, tracheostomy, G and J tube , contacted laying don on left side , multiple surgical scar ENT: Dry mucous membranes. LUNGS: coarse breath sounds HEART:sinus tachy , normal S1 and S2 ABDOMEN: Soft, distended, normoactive bowel sounds, no guarding, abdominal hernia , G-tube loose with surrounded erythema , J tube with no out put LOWER EXTREMITIES: contracted, 2+ pulses, warm, well-perfused. No peripheral edema. NEUROLOGICAL:CLEO, not able to assess SKIN: Warm, dry,left side chest vesicles , Laboratory Results - last 24 hr 09/28/19 09/28/19 09/28/19 10:17 10:55 10:55 WBC 12.8 H RBC 3.88 L Hgb 11.1 L Hct 34.4 L D MCV 88.6 MCH 28.5 MCHC 32.2 RDW 18.3 H Plt Count 589 H MPV 7.4 L Absolute Neuts (auto) 10.0 H Neutrophils % 78.2 Lymphocytes % 14.5 Monocytes % 5.9 Eosinophils % 0.5 Basophils % 0.9 Nucleated RBC % 0 PT with INR Cancelled INR Cancelled PTT (Actin FS) Cancelled VBG pH POC VBG pCO2 POC VBG pO2 VBG HCO3 VBG O2 Sat (Yen) VBG Base Excess Sodium 145 Potassium 4.8 Chloride 111 H Carbon Dioxide 26 Anion Gap 8 BUN 27.5 H Creatinine 0.8 Est GFR (CKD-EPI)AfAm 105.64 Est GFR (CKD-EPI)NonAf 91.15 POC Glucometer Random Glucose 80 Lactic Acid Calcium 11.7 H Total Bilirubin 0.9 AST 39 H ALT 17 Alkaline Phosphatase 100 Troponin I 0.02 Total Protein 7.6 Albumin 2.2 L Urine Color Urine Appearance Urine pH Ur Specific [place] Urine Protein Urine Glucose (UA) Urine Ketones Urine Blood Urine Nitrite Urine Bilirubin Urine Urobilinogen Ur Leukocyte Esterase Urine WBC (Auto) Urine RBC (Auto) Urine Casts (Auto) U Pathogenic Cast Auto U Epithel Cells (Auto) Urine Bacteria (Auto) 09/28/19 09/28/19 09/28/19 10:55 11:04 11:15 WBC RBC Hgb Hct MCV MCH MCHC RDW Plt Count MPV Absolute Neuts (auto) Neutrophils % Lymphocytes % Monocytes % Eosinophils % Basophils % Nucleated RBC % PT with INR INR PTT (Actin FS) VBG pH 7.45 H POC VBG pCO2 33.9 L POC VBG pO2 132.6 H VBG HCO3 22.8 L VBG O2 Sat (Yen) 98.8 H VBG Base Excess -0.8 Sodium Potassium Chloride Carbon Dioxide Anion Gap BUN Creatinine Est GFR (CKD-EPI)AfAm Est GFR (CKD-EPI)NonAf POC Glucometer Random Glucose Lactic Acid 1.2 Calcium Total Bilirubin AST ALT Alkaline Phosphatase Troponin I Total Protein Albumin Urine Color Green Urine Appearance Cloudy Urine pH 8.5 H D Ur Specific [place] 1.025 Urine Protein 1+ H Urine Glucose (UA) Negative Urine Ketones Negative Urine Blood 3+ H Urine Nitrite Negative Urine Bilirubin 2+ H Urine Urobilinogen 0.2 Ur Leukocyte Esterase 3+ H Urine WBC (Auto) 167 Urine RBC (Auto) 148.0 Urine Casts (Auto) 8.82 U Pathogenic Cast Auto None seen U Epithel Cells (Auto) 3.1 Urine Bacteria (Auto) 1717.9 09/28/19 17:40 WBC RBC Hgb Hct MCV MCH MCHC RDW Plt Count MPV Absolute Neuts (auto) Neutrophils % Lymphocytes % Monocytes % Eosinophils % Basophils % Nucleated RBC % PT with INR INR PTT (Actin FS) VBG pH POC VBG pCO2 POC VBG pO2 VBG HCO3 VBG O2 Sat (Yen) VBG Base Excess Sodium Potassium Chloride Carbon Dioxide Anion Gap BUN Creatinine Est GFR (CKD-EPI)AfAm Est GFR (CKD-EPI)NonAf POC Glucometer 87 Random Glucose Lactic Acid Calcium Total Bilirubin AST ALT Alkaline Phosphatase Troponin I Total Protein Albumin Urine Color Urine Appearance Urine pH Ur Specific [place] Urine Protein Urine Glucose (UA) Urine Ketones Urine Blood Urine Nitrite Urine Bilirubin Urine Urobilinogen Ur Leukocyte Esterase Urine WBC (Auto) Urine RBC (Auto) Urine Casts (Auto) U Pathogenic Cast Auto U Epithel Cells (Auto) Urine Bacteria (Auto) Active Medications Generic Name Dose Route Start Last Admin Trade Name Freq PRN Reason Stop Dose Admin Acetaminophen 650 mg 09/28/19 17:40 Tylenol Oral Solution - GT Q4H PRN PAIN 1-3 Albuterol Sulfate 1 amp 09/28/19 20:00 09/28/19 21:10 Ventolin 0.083% Nebulizer Soln - NEB 1 amp RQID ELOINA Administration Chlorhexidine Gluconate 1 applic 09/29/19 22:00 Hibiclens For Decolonization - TP HS ELOINA Clonazepam 0.25 mg 09/29/19 10:00 Klonopin - GT DAILY ELOINA Famotidine 20 mg 09/28/19 22:00 Pepcid NGT BID ELOINA Heparin Sodium (Porcine) 5,000 unit 09/28/19 22:00 Heparin - SQ BID ELOINA Dextrose/Lactated Ringer's 1,000 mls @ 100 mls/hr 09/28/19 17:45 09/28/19 17:55 D5-Lr - IV 100 mls/hr ASDIR ELOINA Administration Potassium Chloride/Dextrose/Sod Cl 20 meq in 1,000 mls @ 75 mls/hr 09/28/19 17:45 09/28/19 18:30 D5-1/2ns+20 Meq Kcl - IV 75 mls/hr ASDIR ELOINA Administration Levofloxacin 500 mg in 100 mls @ 100 mls/hr 09/28/19 18:00 09/28/19 18:03 Levaquin 500 Mg Premixed Ivpb - IVPB 100 mls/hr DAILY ELOINA Administration Protocol Gentamicin Sulfate/Sodium Chloride 80 mg in 100 mls @ 100 mls/hr 09/28/19 23:00 Garamycin 80 Mg Premixed Ivpb - IVPB Q8H ELOINA Protocol Vancomycin HCl 1,000 mg/ 250 mls @ 166.667 mls/hr 09/28/19 23:00 Dextrose IVPB Q12H ELOINA Protocol Vancomycin HCl 1,000 mg in 250 mls @ 166.667 mls/hr 09/28/19 23:00 Vancomycin (Pre-Docked) IVPB 09/29/19 12:29 Q12H ELOINA Protocol Piperacillin Sod/Tazobactam 50 mls @ 100 mls/hr 09/28/19 23:15 Sod 3.375 gm/ Dextrose IVPB Q8H-IV ELOINA Protocol Piperacillin Sod/Tazobactam 50 mls @ 100 mls/hr 09/28/19 23:30 Sod 3.375 gm/ Dextrose IVPB 09/29/19 10:29 Q8H-IV ELO[facility] Protocol Lamotrigine 50 mg 09/28/19 22:00 Lamictal - PO BID ELOINA Mupirocin 1 applic 09/28/19 23:15 Bactroban Ointment (For Decolonization) - NS 10/03/19 23:14 BID ELOINA Nystatin 1 applic 09/28/19 22:00 Mycostatin Cream - TP TID ELOINA CBC, BMP 09/28/19 10:55 09/28/19 10:17 ASSESSMENT/PLAN: 69 year old male S/P tracheostomy pt presented from [place] to change J tube was found to have low bp and in septic shock 2/2 UTI and aspiration PNA. # Septic chock 2/2 UTI and aspiration PNA # UTI # Aspiration PNA RLL consolidation on CT # Seizure # G tuebe dislodged # Dislodged J tube malfunction # COPD # Chronic respiratory failure S/P Tracheostomy # Parkinson # Schizophrenia # Cerebral palsy # Sacral ulcer #Iron deficiency Anemia # thrombocytosis # Functional quadriplegia # Covid pending # Abdominal hernia Plan * continue antibiotics Vanco/Gentamicin and cefepim due to recent multi drug resistant organism Sputum cx last visit with pseudomomas * hay cx * IV fluids * Central Line and Lecofed to maintain MAP > 65 * vent management maintain o2 sat > 89 * had of bed elevation , aspiration precautions * inhaled bronchodilators * continue volume assist control * hold feed till replce the G tube and j tube * DVT/GI prophylaxis * had one seizure in ED treated with one mg Ativan * cont home meds Klonapin , Lamotrign , famotidine Dispo: We will continue to follow the patient. Thank you for this consultative opportunity. Visit type - Emergency Visit Emergency Visit: Yes ED Registration Date: 09/28/19 Care time: The patient presented to the Emergency Department on the above date and was hospitalized for further evaluation of their emergent condition. - New Patient This patient is new to me today: Yes Date on this admission: 09/28/19 - Critical Care Critical Care patient: Yes Total Critical Care Time (in minutes): 45 Critical Care Statement: The care of this patient involved high complexity decision making to prevent further life threatening deterioration of the patient's condition and/or to evaluate & treat vital organ system(s) failure or risk of failure. ATTENDING PHYSICIAN STATEMENT I saw and evaluated the patient. I reviewed the resident's note and discussed the case with the resident. I agree with the resident's findings and plan as documented. SUBJECTIVE: OBJECTIVE: ASSESSMENT AND PLAN:
[2019-09-28] MEDS: lamoTRIgine 25 MG TABLET PO SCH (23:59)
[2019-09-28] MEDS: FAMOTIDINE 40 MG/5 ML ORAL SUSPENSION NGT SCH (23:59)
[2019-09-29] MEDS ORDERED: HEPARIN NA (PORCINE) 5,000 UNITS/ML 1ML VIAL ONE (01:10)
[2019-09-29] MEDS ORDERED: VANCOMYCIN 1 GRAM (PRE-DOCKED) 1,000 MG/250 ML BAG IVPB ONE (01:10)
--- NOTE | 2019-09-29 01:17 | PROC ---
Central Line Insertion Indication: Vasopressor Risks and Benefits Explained: No (emergent) Consent on Chart: No (emergent) Central Line: Triple Lumen Catheter Anesthesia: 1% Lidocaine Sterile Technique: Yes Ultrasound Guided Assistance: Yes Position: Left Internal Jugular Post Insertion: Yes: Bilateral Breath Sounds Sterile Dressing Applied: Yes
[2019-09-29] MEDS: HEPARIN NA (PORCINE) 5,000 UNITS/ML 1ML VIAL SQ SCH ×3 (01:18→23:28)
[2019-09-29] MEDS: VANCOMYCIN 1 GRAM (PRE-DOCKED) 1,000 MG/250 ML BAG IVPB SCH ×3 (01:19→15:58)
[2019-09-29] MEDS: NYSTATIN 100,000 UNIT/GM TOPICAL CREAM 15 GM TUBE TP SCH ×4 (02:57→21:26)
[2019-09-29] MEDS: MUPIROCIN 2% TOPICAL OINTMENT FOR DECOLONIZATION NS SCH ×2 (02:58→09:30)
[2019-09-29] MEDS: GENTAMICIN 80 MG PREMIXED IVPB 80 MG/100 ML BAG IVPB SCH ×2 (02:58→07:13)
[2019-09-29] MEDS: CEFEPIME HCL/D5W 2 GM/50 ML BAG IVPB SCH ×2 (02:58→15:57)
[2019-09-29] MEDS ORDERED: LACTATED RINGERS SOLUTION 1000 ML INFUS.BAG IV ONE (05:58)
[2019-09-29 06:43] LABS: BASO % 0.8 % (0-2.0); EOS % 1.1 % (0-4.5); HEMATOCRIT 26.3 % (35.4-49); HEMOGLOBIN 8.5 GM/dL (11.7-16.9); LYMPH % 12.3 % (8-40); MCH 28.7 pg (25.7-33.7); MCHC 32.4 g/dl (32.0-35.9); MEAN CELL VOLUME 88.5 fl (80-96); MEAN PLT VOLUME 7.5 fl (7.5-11.1); MONO % 4.4 % (3.8-10.2); NEUT % 81.4 % (42.8-82.8); PLATELET COUNT 415 K/MM3 (134-434); RBC 2.98 M/mm3 (4.00-5.60); RDW 18.4 % (11.9-15.9); WHITE BLOOD COUNT 11.2 K/mm3 (4.0-10.0)
[2019-09-29 07:10] LABS: ALBUMIN 1.6 g/dl (3.4-5.0); BLOOD UREA NITROGEN 16.6 mg/dL (7-18); CALCIUM 9.5 mg/dL (8.5-10.1); MAGNESIUM 1.7 mg/dL (1.8-2.4); POTASSIUM 3.5 mmol/L (3.5-5.1)
[2019-09-29 07:21] LABS: BILIRUBIN,TOTAL 0.4 mg/dL (0.2-1); CREATININE 0.5 mg/dL (0.55-1.3)
[2019-09-29 07:34] LABS: TOT PROT 5.5 g/dl (6.4-8.2)
[2019-09-29] MEDS ORDERED: PT OWN MED DRAWER 7, Y5N ONE ×2 (08:06→21:57)
--- NOTE | 2019-09-29 08:07 | PN ---
Progress Note (short form) - Note Progress Note: ICU PROGRESS UPDATE HD#2 BRIEF HX 69YOM with CP, Parkinsons, Schizophrenia, seizures, HTN, respiratory failure now trach dependent, PNA (recent sputum cx with MDRO), multiple pressure ulcers (back sacral), C-diff enterocolitis, PEG and G-J tubes (placed by IR on 09/14/19 then G tube replaced on 09/22/19 for decompression), who was BIBEMS from [facility] for clogged J-tubed then found to have urosepsis and likely PNA as well, persistently hypotensive/septic shock in the ED. SUBJECTIVE No acute events overnight. Patient had LIJ placed for persistent hypotension in anticipation of pressors. Switched from vanc/CTX/azithro to vanc/cefepime/gent. OBJECTIVE Vital Signs Temp 98.0 F 09/29/19 08:00 Pulse 87 09/29/19 08:00 Resp 16 09/29/19 08:00 BP 93/75 09/29/19 08:00 Pulse Ox 100 09/29/19 08:00 Intake & Output 09/28/19 09/28/19 09/29/19 11:59 23:59 11:59 Intake Total 825 Output Total 25 Balance -25 825 Weight 53.66 kg 46.947 kg Intake: IV 725 ivf 725 IVPB 100 Output: Urine 25 Supra Pubic Tube 25 Other: Voiding Method Ileal Conduit (Left) Ileal Conduit (Left) Ileal Conduit (Left) Bowel Movement No Height 62 ft 62 ft Body Mass Index (BMI) 0.1 0.1 Weight Measurement Method Built in Bedscale Weight Measurement Method Built in Stretcher Scale GENERAL: frail, chronically ill-appearing, no obvious distress, appears dehydrated, nonverbal but tracks examiner with eyes HEENT: PERRLA, EOMI, dry mucous membranes NECK/BACK: no obvious midline ttp, no spinal stepoff or deformity, no hematoma, full ROM, neck supple CARDIOVASCULAR: regular rate/rhythm, no MGR, strong peripheral pulses, capillary refill 3 seconds, no edema LUNGS/RESPIRATORY: trach in place and hooked up to vent, no increased WOB, coarse breath sounds bilaterally worse on the right side, decreased breath sounds on right compared with left, bilateral mild expiratory wheezes GI/ABDOMEN: G and J tubes in place, symmetric [id number], normoactive BS, soft, no obvious ttp, no midline pulsatile masses : suprapubic cath in place draining MSK/EXTREMITIES: chronic-appearing muscle atrophy, no acute deformity, in pressure boots DERM/SKIN: warm and dry, no pallor, no pathologic-appearing bruising, lower thoracic advance-stage pressure ulcer overlying spine, sacral decubitus ulcer, right hip pressure ulcer NEUROLOGICAL: eyes open and tracking examiner, CN II-XII grossly intact, no facial droop, leaning to right side, contracted Lines: LIJ CVC placed overnight, PIV Tubes: PEG and G-J tube Drains: Trach collar & Vent: Volume AC Drips: LR @ 100cc/h Anti Infectives: vanc/cefepime/gent Culture Data: 09/28/19 09/28/19 09/29/19 11:50 17:40 05:40 WBC 11.2 H RBC 2.98 L Hgb 8.5 L Hct 26.3 L D MCV 88.5 MCH 28.7 MCHC 32.4 RDW 18.4 H Plt Count 415 D MPV 7.5 Absolute Neuts (auto) 9.1 H Neutrophils % 81.4 Lymphocytes % 12.3 Monocytes % 4.4 Eosinophils % 1.1 D Basophils % 0.8 Nucleated RBC % 0 PT with INR INR PTT (Actin FS) VBG pH POC VBG pCO2 POC VBG pO2 VBG HCO3 VBG O2 Sat (Yen) VBG Base Excess Sodium Potassium Chloride Carbon Dioxide Anion Gap BUN Creatinine Est GFR (CKD-EPI)AfAm Est GFR (CKD-EPI)NonAf POC Glucometer 87 Random Glucose Lactic Acid Calcium Magnesium Total Bilirubin AST ALT Alkaline Phosphatase Troponin I Total Protein Albumin TSH Urine Color Urine Appearance Urine pH Ur Specific [place] Urine Protein Urine Glucose (UA) Urine Ketones Urine Blood Urine Nitrite Urine Bilirubin Urine Urobilinogen Ur Leukocyte Esterase Urine WBC (Auto) Urine RBC (Auto) Urine Casts (Auto) U Pathogenic Cast Auto U Epithel Cells (Auto) Urine Bacteria (Auto) COVID-19 (DAVID) Not detected 09/29/19 05:40 WBC RBC Hgb Hct MCV MCH MCHC RDW Plt Count MPV Absolute Neuts (auto) Neutrophils % Lymphocytes % Monocytes % Eosinophils % Basophils % Nucleated RBC % PT with INR INR PTT (Actin FS) VBG pH POC VBG pCO2 POC VBG pO2 VBG HCO3 VBG O2 Sat (Yen) VBG Base Excess Sodium 143 Potassium 3.5 Chloride 112 H Carbon Dioxide 25 Anion Gap 7 L BUN 16.6 Creatinine 0.5 L Est GFR (CKD-EPI)AfAm 128.15 Est GFR (CKD-EPI)NonAf 110.57 POC Glucometer Random Glucose 85 Lactic Acid Calcium 9.5 Magnesium 1.7 L Total Bilirubin 0.4 AST 14 L ALT 11 L Alkaline Phosphatase 72 Troponin I Total Protein 5.5 L Albumin 1.6 L TSH 2.42 D Urine Color Urine Appearance Urine pH Ur Specific [place] Urine Protein Urine Glucose (UA) Urine Ketones Urine Blood Urine Nitrite Urine Bilirubin Urine Urobilinogen Ur Leukocyte Esterase Urine WBC (Auto) Urine RBC (Auto) Urine Casts (Auto) U Pathogenic Cast Auto U Epithel Cells (Auto) Urine Bacteria (Auto) COVID-19 (DAVID) CXR: Right diffuse airspace disease with pleural effusion, no obvious PTX. LIJ with good placement. ASSESSMENT / PLAN: 69YOM with CP, Parkinsons, Schizophrenia, seizures, HTN, respiratory failure now trach dependent, PNA, multiple pressure ulcers (back sacral), C-diff ent erocolitis, PEG and G-J tube (placed by IR on 09/14/19 then G tube replaced on 09/22/19 for decompression), who was BIBEMS from [facility] for clogged J-tubed then found to have urosepsis and likely PNA as well, persistently hypotensive/septic shock in the ED. Neuro/Psych: seizure disorder (one sz in ED yesterday), CP, Parkinsons, schizophrenia -Monitor -Ativan prn seizure or agitation (careful with BP) -Continue home lamotrigine Endocrine: no concerns -Monitor Cardiovascular: hypotension -IVF as below -May need pressors eventually -Monitor BP Pulm/Resp: aspiration PNA RLL consolidation on CT, COPD, chronic trach/vent -Pulm consulted, appreciate recs -Continue abx as below -DuoNebs as needed prn wheezing -Recheck blood gas today & adjust vent settings as needed -HOB at ~40 deg aspiration precautions -Suctioning (+deep) Gastrointestinal: G-J tube malfunction, PEG tube, ventral hernia -IR consult placed, appreciate recs Genitourinary: complicated UTI -Continue abx -Monitor UOP Hematologic: chronic iron deficiency anemia, thrombocytosis -Monitor Infectious Disease: UTI, complicated and PNA, likely aspiration, COVID-19 pending -Continue vanc/cefepime/gentamicin -ID consulted, appreciate recs -F/U COVID-19 test Musculoskeletal: CP, chronic deconditioning -Monitor Dermatology: lower thoracic and sacral pressure ulcers -Dressing changes -Monitor for infection -Turn/reposition FEN: -IVF LR @ 1000cc/h Prophylaxis: - DVT: HSQ - GI: Continue home famotidine, hold feeds until G/J tubes functioning Dispo: Can transfer to med/surg. Linda Eaton MD ICU Consult Service Problem List - Problems (1) Back wound Code(s): S21.209A - UNSP OPN WND UNSP BK WL OF THORAX W/O PENET THOR CAV, INIT (2) COPD (chronic obstructive pulmonary disease) Code(s): J44.9 - CHRONIC OBSTRUCTIVE PULMONARY DISEASE, UNSPECIFIED Qualifiers: (3) Cerebral palsy Code(s): G80.9 - CEREBRAL PALSY, UNSPECIFIED Qualifiers: (4) Chronic respiratory failure Code(s): J96.10 - CHRONIC RESPIRATORY FAILURE, UNSP W HYPOXIA OR HYPERCAPNIA Qualifiers: (5) Decubital ulcer Code(s): L89.90 - PRESSURE ULCER OF UNSPECIFIED SITE, UNSPECIFIED STAGE (6) Dehydration Code(s): E86.0 - DEHYDRATION (7) Dislodged gastrostomy tube Code(s): Z43.1 - ENCOUNTER FOR ATTENTION TO GASTROSTOMY (8) Parkinson disease Code(s): G20 - PARKINSON'S DISEASE (9) Pleural effusion Code(s): J90 - PLEURAL EFFUSION, NOT ELSEWHERE CLASSIFIED (10) Pneumonia Code(s): J18.9 - PNEUMONIA, UNSPECIFIED ORGANISM Qualifiers: Pneumonia type: due to other aerobic Gram-negative bacteria Laterality: bilateral Lung location: lower lobe of lung Qualified Code(s): J15.6 - Pneumonia due to other Gram-negative bacteria (11) Sepsis Code(s): A41.9 - SEPSIS, UNSPECIFIED ORGANISM (12) UTI (urinary tract infection) Code(s): N39.0 - URINARY TRACT INFECTION, SITE NOT SPECIFIED
[2019-09-29] MEDS: ALBUTEROL SO4 0.083% IH SOL 2.5 MG/3 ML VIAL.NEB. NEB SCH ×4 (08:25→20:30)
[2019-09-29] MEDS: clonazePAM 0.5 MG TABLET GT SCH (09:31)
[2019-09-29] MEDS: FAMOTIDINE 40 MG/5 ML ORAL SUSPENSION NGT SCH ×2 (09:31→21:19)
[2019-09-29] MEDS: lamoTRIgine 25 MG TABLET PO SCH ×2 (09:31→21:19)
[2019-09-29] MEDS ORDERED: CEFTRIAXONE 1 GM in DEXTROSE 5%-WATER - 50 ML IVPB SCH (10:00)
[2019-09-29] MEDS ORDERED: CEFEPIME 2 GM in DEXTROSE 5%-WATER 100 ML IVPB SCH (10:00)
--- NOTE | 2019-09-29 11:30 | PN ---
Progress Note, Physician Chief Complaint: UTI Chronic respiratory failure Clogged J tube Pneumonia History of Present Illness: NAD on mechanical vent No J tube is available in the facility for it to be changed - Current Medication List Current Medications: Active Medications Acetaminophen (Tylenol Oral Solution -) 650 mg GT Q4H PRN PRN Reason: PAIN 1-3 Albuterol Sulfate (Ventolin 0.083% Nebulizer Soln -) 1 amp NEB RQID [facility] Last Admin: 09/29/19 08:25 Dose: 1 amp Documented by: Chlorhexidine Gluconate (Hibiclens For Decolonization -) 1 applic TP [facility] Clonazepam (Klonopin -) 0.25 mg GT DAILY [facility] Last Admin: 09/29/19 09:31 Dose: Not Given Documented by: Famotidine (Pepcid) 20 mg NGT BID [facility] Last Admin: 09/29/19 09:31 Dose: Not Given Documented by: Heparin Sodium (Porcine) (Heparin -) 5,000 unit SQ BID [facility] Last Admin: 09/29/19 09:30 Dose: 5,000 unit Documented by: Dextrose/Lactated Ringer's (D5-Lr -) 1,000 mls @ 100 mls/hr IV ASDIR [facility] Last Admin: 09/28/19 17:55 Dose: 100 mls/hr Documented by: Potassium Chloride/Dextrose/Sod Cl (D5-1/2ns+20 Meq Kcl -) 20 meq in 1,000 mls @ 75 mls/hr IV ASDIR [facility] Last Admin: 09/28/19 18:30 Dose: 75 mls/hr Documented by: Gentamicin Sulfate/Sodium Chloride (Garamycin 80 Mg Premixed Ivpb -) 80 mg in 100 mls @ 100 mls/hr IVPB Q8H [facility]; Protocol Last Admin: 09/29/19 07:13 Dose: Not Given Documented by: Vancomycin HCl 1,000 mg/ (Dextrose) 250 mls @ 166.667 mls/hr IVPB Q12H [facility]; Protocol Vancomycin HCl (Vancomycin (Pre-Docked)) 1,000 mg in 250 mls @ 166.667 mls/hr IVPB Q12H [facility]; Protocol Stop: 09/29/19 12:29 Last Admin: 09/29/19 01:19 Dose: 166.667 mls/hr Documented by: Cefepime HCl (Maxipime 2gm Ivpb (Premix)) 2 gm in 50 mls @ 100 mls/hr IVPB Q8H- IV [facility]; Protocol Last Admin: 09/29/19 02:58 Dose: Not Given Documented by: Cefepime HCl 2 gm/ Dextrose 100 mls @ 200 mls/hr IVPB Q8H-IV [facility]; Protocol Stop: 09/30/19 02:29 Last Admin: 09/29/19 09:51 Dose: 200 mls/hr Documented by: Lamotrigine (Lamictal -) 50 mg PO BID [facility] Last Admin: 09/29/19 09:31 Dose: Not Given Documented by: Mupirocin (Bactroban Ointment (For Decolonization) -) 1 applic NS BID [facility] Stop: 10/03/19 23:14 Last Admin: 09/29/19 09:30 Dose: 1 applic Documented by: Nystatin (Mycostatin Cream -) 1 applic TP TID [facility] Last Admin: 09/29/19 05:50 Dose: Not Given Documented by: - Objective Vital Signs: Vital Signs Temperature 99.6 F 09/29/19 10:00 Pulse Rate 92 H 09/29/19 10:00 Respiratory Rate 18 09/29/19 10:00 Blood Pressure 131/76 09/29/19 10:00 O2 Sat by Pulse Oximetry (%) 100 09/29/19 09:00 Constitutional: Yes: No Distress, Calm, Cachectic Cardiovascular: Yes: Regular Rate and Rhythm Respiratory: Yes: Regular, CTA Bilaterally, Mechanically Ventilated Gastrointestinal: Yes: Normal Bowel Sounds, Soft, Other (G tube draining bile) Genitourinary: Yes: Incontinence Extremities: Yes: Other (generalized atrophy) Edema: No Peripheral Pulses WNL: Yes Integumentary: Yes: Rash (around J tube) Wound/Incision: Yes: Dressing Dry and Intact (multiple pressure ulcers) Neurological: Yes: Alert, Pre-Existing Deficit Psychiatric: Yes: Alert Labs: CBC, BMP 09/29/19 05:40 09/29/19 05:40 INR, PTT INR Cancelled 09/28/19 10:55 - ....Imaging Chest X-ray: Report Reviewed Problem List - Problems (1) UTI (urinary tract infection) Assessment/Plan: -UC: Microbiology 09/28/19 10:55 Blood Culture - Preliminary Blood - Peripheral Venous NO GROWTH OBTAINED AFTER 24 HOURS, INCUBATION TO CONTINUE FOR 4 DAYS. 09/28/19 10:55 Blood Culture - Preliminary Blood - Peripheral Venous NO GROWTH OBTAINED AFTER 24 HOURS, INCUBATION TO CONTINUE FOR 4 DAYS. 09/28/19 11:15 Urine Culture - Preliminary Urine - Urine - Catheterized Proteus Species Non Lactose Fermenting Gnb Lactose Fermenting Neg Bacilli Pending Organism -IV abx -ID consult -Febrile on admission, afebrile now Problems reviewed: Yes Code(s): N39.0 - URINARY TRACT INFECTION, SITE NOT SPECIFIED (2) Anemia Assessment/Plan: -Previously TAM on 09/15/19 -Start Feosol BID -Venofer if BC negative -repeat Stool OB -Monitor trend -Transfuse only if Hg<7.0 to avoid fluid overload Problems reviewed: Yes Code(s): D64.9 - ANEMIA, UNSPECIFIED Qualifiers: (3) Chronic respiratory failure Assessment/Plan: -Pulmonary on board -Mech vent -not a candidate for weaning Problems reviewed: Yes Code(s): J96.10 - CHRONIC RESPIRATORY FAILURE, UNSP W HYPOXIA OR HYPERCAPNIA Qualifiers: (4) Malfunctioning jejunostomy tube Assessment/Plan: -Effort to obtain J tube- administration informed. -If unable to get J tube, would need to transfer pt to nearby facility. Problems reviewed: Yes Code(s): K94.13 - ENTEROSTOMY MALFUNCTION (5) Pneumonia Assessment/Plan: -HOB elevated>30 degrees -IV abx -ID consult -afebrile -COVID 19 PCR negative -DO NOT USE G-TUBE Problems reviewed: Yes Code(s): J18.9 - PNEUMONIA, UNSPECIFIED ORGANISM Qualifiers: Pneumonia type: due to other aerobic Gram-negative bacteria Laterality: bilateral Lung location: lower lobe of lung Qualified Code(s): J15.6 - Pneumonia due to other Gram-negative bacteria (6) Cerebral palsy Problems reviewed: Yes Code(s): G80.9 - CEREBRAL PALSY, UNSPECIFIED Qualifiers: (7) Functional quadriplegia Problems reviewed: Yes Code(s): R53.2 - FUNCTIONAL QUADRIPLEGIA (8) Severe malnutrition Assessment/Plan: -Multivitamin -Prosource BID Problems reviewed: Yes Code(s): E43 - UNSPECIFIED SEVERE PROTEIN-CALORIE MALNUTRITION Assessment/Plan See problem list
[2019-09-29] MEDS: MULTIVIT-MINERALS ORAL LIQUID PO SCH (12:16)
[2019-09-29] MEDS: CLOTRIMAZOLE/BETAMET DIPROP 15 GM TUBE TP SCH ×2 (12:17→23:28)
[2019-09-29] MEDS: FERROUS SO4 300 MG/5 ML ORAL SOLN UNIT DOSE CUPS GT SCH ×2 (12:17→21:20)
--- NOTE | 2019-09-29 14:06 | PN ---
Teaching Attending Note Name of Resident: Linda Eaton ATTENDING PHYSICIAN STATEMENT I saw and evaluated the patient. I reviewed the resident's note and discussed the case with the resident. I agree with the resident's findings and plan as documented. SUBJECTIVE: Patient seen and examined in the ICU. Lethargic on AC Mode of vent. Hemodynamics stable with IVF resuscitation. Did not require pressors overnight. Intake & Output 09/26/19 09/27/19 09/28/19 09/29/19 23:59 23:59 23:59 23:59 Intake Total 825 Output Total 25 Balance -25 825 Weight 118 lb 4.8 oz 103 lb 8 oz Last Vital Signs Temp Pulse Resp BP Pulse Ox 99.9 F H 89 16 108/65 100 09/29/19 12:00 09/29/19 12:00 09/29/19 12:35 09/29/19 12:00 09/29/19 09:00 Active Medications Acetaminophen (Tylenol Oral Solution -) 650 mg GT Q4H PRN PRN Reason: PAIN 1-3 Albuterol Sulfate (Ventolin 0.083% Nebulizer Soln -) 1 amp NEB RQID [facility] Last Admin: 09/29/19 08:25 Dose: 1 amp Documented by: Amino Acids (Prosource No Carb Liquid Pkt) 30 ml PO BID@0800,1730 [facility] Chlorhexidine Gluconate (Hibiclens For Decolonization -) 1 applic TP [facility] Clonazepam (Klonopin -) 0.25 mg GT DAILY [facility] Last Admin: 09/29/19 09:31 Dose: Not Given Documented by: Clotrimazole (Lotrisone Cream (Small Tube)) 1 applic TP BID [facility] Last Admin: 09/29/19 12:17 Dose: Not Given Documented by: Collagenase (Santyl -) 1 applic TP DAILY [facility]; Protocol Famotidine (Pepcid) 20 mg NGT BID [facility] Last Admin: 09/29/19 09:31 Dose: Not Given Documented by: Ferrous Sulfate (Feosol) 300 mg GT BID [facility] Last Admin: 09/29/19 12:17 Dose: Not Given Documented by: Heparin Sodium (Porcine) (Heparin -) 5,000 unit SQ BID [facility] Last Admin: 09/29/19 09:30 Dose: 5,000 unit Documented by: Dextrose/Lactated Ringer's (D5-Lr -) 1,000 mls @ 100 mls/hr IV ASDIR [facility] Last Admin: 09/28/19 17:55 Dose: 100 mls/hr Documented by: Potassium Chloride/Dextrose/Sod Cl (D5-1/2ns+20 Meq Kcl -) 20 meq in 1,000 mls @ 75 mls/hr IV ASDIR [facility] Last Admin: 09/28/19 18:30 Dose: 75 mls/hr Documented by: Gentamicin Sulfate/Sodium Chloride (Garamycin 80 Mg Premixed Ivpb -) 80 mg in 100 mls @ 100 mls/hr IVPB Q8H [facility]; Protocol Last Admin: 09/29/19 07:13 Dose: Not Given Documented by: Vancomycin HCl 1,000 mg/ (Dextrose) 250 mls @ 166.667 mls/hr IVPB Q12H [facility]; Protocol Cefepime HCl (Maxipime 2gm Ivpb (Premix)) 2 gm in 50 mls @ 100 mls/hr IVPB Q8H- IV [facility]; Protocol Last Admin: 09/29/19 02:58 Dose: Not Given Documented by: Cefepime HCl 2 gm/ Dextrose 100 mls @ 200 mls/hr IVPB Q8H-IV [facility]; Protocol Stop: 09/30/19 02:29 Last Admin: 09/29/19 09:51 Dose: 200 mls/hr Documented by: Lamotrigine (Lamictal -) 50 mg PO BID [facility] Last Admin: 09/29/19 09:31 Dose: Not Given Documented by: Multivitamins/Minerals (Certavite-Antioxidant Liquid) 15 ml PO DAILY [facility] Last Admin: 09/29/19 12:16 Dose: Not Given Documented by: Mupirocin (Bactroban Ointment (For Decolonization) -) 1 applic NS BID [facility] Stop: 10/03/19 23:14 Last Admin: 09/29/19 09:30 Dose: 1 applic Documented by: Nystatin (Mycostatin Cream -) 1 applic TP TID [facility] Last Admin: 09/29/19 05:50 Dose: Not Given Documented by: GENERAL: frail, chronically ill-appearing, Vented HEENT: dry mucous membranes CARDIOVASCULAR: regular rate/rhythm LUNGS/RESPIRATORY: Vented, trach intact, coarse breath sounds bilaterally, no wheezes GI/ABDOMEN: G and J tubes in place, (+) BS, soft : suprapubic cath in place draining MSK/EXTREMITIES: chronic-appearing muscle atrophy, no acute deformity, in pressure boots DERM/SKIN: warm and dry, no pallor, no pathologic-appearing bruising, lower thoracic advance-stage pressure ulcer overlying spine, sacral decubitus ulcer, right hip pressure ulcer NEUROLOGICAL: Lethargic, contracted 09/28/19 09/28/19 09/29/19 11:50 17:40 05:40 WBC 11.2 H RBC 2.98 L Hgb 8.5 L Hct 26.3 L D MCV 88.5 MCH 28.7 MCHC 32.4 RDW 18.4 H Plt Count 415 D MPV 7.5 Absolute Neuts (auto) 9.1 H Neutrophils % 81.4 Lymphocytes % 12.3 Monocytes % 4.4 Eosinophils % 1.1 D Basophils % 0.8 Nucleated RBC % 0 PT with INR INR PTT (Actin FS) VBG pH POC VBG pCO2 POC VBG pO2 VBG HCO3 VBG O2 Sat (Yen) VBG Base Excess Sodium Potassium Chloride Carbon Dioxide Anion Gap BUN Creatinine Est GFR (CKD-EPI)AfAm Est GFR (CKD-EPI)NonAf POC Glucometer 87 Random Glucose Lactic Acid Calcium Magnesium Total Bilirubin AST ALT Alkaline Phosphatase Troponin I Total Protein Albumin TSH Urine Color Urine Appearance Urine pH Ur Specific [place] Urine Protein Urine Glucose (UA) Urine Ketones Urine Blood Urine Nitrite Urine Bilirubin Urine Urobilinogen Ur Leukocyte Esterase Urine WBC (Auto) Urine RBC (Auto) Urine Casts (Auto) U Pathogenic Cast Auto U Epithel Cells (Auto) Urine Bacteria (Auto) COVID-19 (DAVID) Not detected 09/29/19 05:40 WBC RBC Hgb Hct MCV MCH MCHC RDW Plt Count MPV Absolute Neuts (auto) Neutrophils % Lymphocytes % Monocytes % Eosinophils % Basophils % Nucleated RBC % PT with INR INR PTT (Actin FS) VBG pH POC VBG pCO2 POC VBG pO2 VBG HCO3 VBG O2 Sat (Yen) VBG Base Excess Sodium 143 Potassium 3.5 Chloride 112 H Carbon Dioxide 25 Anion Gap 7 L BUN 16.6 Creatinine 0.5 L Est GFR (CKD-EPI)AfAm 128.15 Est GFR (CKD-EPI)NonAf 110.57 POC Glucometer Random Glucose 85 Lactic Acid Calcium 9.5 Magnesium 1.7 L Total Bilirubin 0.4 AST 14 L ALT 11 L Alkaline Phosphatase 72 Troponin I Total Protein 5.5 L Albumin 1.6 L TSH 2.42 D Urine Color Urine Appearance Urine pH Ur Specific [place] Urine Protein Urine Glucose (UA) Urine Ketones Urine Blood Urine Nitrite Urine Bilirubin Urine Urobilinogen Ur Leukocyte Esterase Urine WBC (Auto) Urine RBC (Auto) Urine Casts (Auto) U Pathogenic Cast Auto U Epithel Cells (Auto) Urine Bacteria (Auto) COVID-19 (DAVID) ASSESSMENT / PLAN: Sepsis due to a source Chronic respiratory failure Parkinsons Schizophrenia Seizure DO HTN Trach dependent PNA Multiple pressure ulcers History of C-diff colitis PEG and G-J tube ABX per ID IVF resuscitation AC Mode of vent Follow cultures BD TX Problem List - Problems (1) Back wound Code(s): S21.209A - UNSP OPN WND UNSP BK WL OF THORAX W/O PENET THOR CAV, INIT (2) COPD (chronic obstructive pulmonary disease) Code(s): J44.9 - CHRONIC OBSTRUCTIVE PULMONARY DISEASE, UNSPECIFIED Qualifiers: (3) Cerebral palsy Code(s): G80.9 - CEREBRAL PALSY, UNSPECIFIED Qualifiers: (4) Chronic respiratory failure Code(s): J96.10 - CHRONIC RESPIRATORY FAILURE, UNSP W HYPOXIA OR HYPERCAPNIA Qualifiers: (5) Decubital ulcer Code(s): L89.90 - PRESSURE ULCER OF UNSPECIFIED SITE, UNSPECIFIED STAGE (6) Dehydration Code(s): E86.0 - DEHYDRATION (7) Dislodged gastrostomy tube Code(s): Z43.1 - ENCOUNTER FOR ATTENTION TO GASTROSTOMY (8) Parkinson disease Code(s): G20 - PARKINSON'S DISEASE (9) Pleural effusion Code(s): J90 - PLEURAL EFFUSION, NOT ELSEWHERE CLASSIFIED (10) Pneumonia Code(s): J18.9 - PNEUMONIA, UNSPECIFIED ORGANISM Qualifiers: Pneumonia type: due to other aerobic Gram-negative bacteria Laterality: bilateral Lung location: lower lobe of lung Qualified Code(s): J15.6 - Pneumonia due to other Gram-negative bacteria (11) Sepsis Code(s): A41.9 - SEPSIS, UNSPECIFIED ORGANISM (12) UTI (urinary tract infection) Code(s): N39.0 - URINARY TRACT INFECTION, SITE NOT SPECIFIED ASSESSMENT / PLAN: Sepsis due to a source Chronic respiratory failure Parkinsons Schizophrenia Seizure DO HTN Trach dependent PNA Multiple pressure ulcers History of C-diff colitis PEG and G-J tube ABX per ID IVF resuscitation AC Mode of vent Follow cultures BD TX VTE prophylaxis Local wound care For feeding tube exchange Vent floor Dr Alexandre
[2019-09-29] MEDS: COLLAGENASE CLOSTRIDIUM HIST. 30 GRAMS TUBE TP SCH (14:13)
--- NOTE | 2019-09-29 14:51 | PN ---
Progress Note (short form) - Note Progress Note: ID CONSULT DICTATED UTI / POSSIBLE SEPSIS SECONDARY TO SOURCE R SIDED PNEUMONIA CHRONIC RESP FAILURE/ EXACERBATION COPD PARKINSONISM SCHIZOPHRENIA HX RESISTANT PSEUDOMONAS AWAIT SEPSIS WORK UP EMPIRIC CEFEPIME/ VANCOMYCIN CRITICAL CARE TIME 35MIN
[2019-09-29] MEDS: VANCOMYCIN 1,000 MG in DEXTROSE 5%-WATER - 250 ML IVPB SCH (15:58)
[2019-09-29] MEDS: AMINO ACIDS/PROTEIN HYDROLYS 30 ML LIQUID.PKT PO SCH (17:38)
[2019-09-29] MEDS ORDERED: MAGNESIUM SULF 50% (8.12 MEQ/2 ML-1 GM VIAL) IVPB ONE (17:47)
--- NOTE | 2019-09-29 17:47 | CON.NEP ---
Consult Consult Specialty:: Nephrology Referred by:: OLIVER Rivero Reason for Consultation:: Nutrition - History of Present Illness Chief Complaint: dislodged feeding tube History of Present Illness: This is a 69 year old male with hitory of chronic respiratory failure on the vent, COPD, Parkinsons, seizure disorder, cerebral palsy who presented [place] with dislodged feeding tube and found to have suspected sepsis/shock and w/o means of enteral nutrition. Pt seen and examined in the ICU. On Vent via trach. Not able to provide history. On IVF. 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, Other (CP, MR) Pulmonary: Yes: Bronchitis, COPD, O2 Dependent (trach- vent dependent), Pneumonia, Previously Intubated, Other (Vent dependent via trach) Renal/: Yes: Other Infectious Disease: Yes: Other (resistant Pseudomonas) Psych: Yes: Schizophrenia Musculoskeletal: Yes: Other (functional quadriplegia) - Alcohol/Substance Use Hx Alcohol Use: No History of Substance Use: reports: None - Smoking History Smoking history: Unknown if ever smoked Have you smoked in the past 12 months: No - Social History Usual Living Arrangement: Correction ADL: Support Services History of Recent Travel: No Home Medications - Allergies Allergies/Adverse Reactions: Allergies Allergy/AdvReac Type Severity Reaction Status Date / Time No Known Allergies Allergy Verified 09/28/19 11:41 - Home Medications Home Medications: Ambulatory Orders Lactobacillus Acidophilus [Acidophilus] 1 each PO DAILY 07/23/19 Famotidine [Pepcid] 20 mg NGT BID oral.susp 07/28/19 Acetaminophen Oral Solution [Tylenol Oral Solution -] 650 mg GT Q4H PRN soln.oral 09/17/19 Heparin - 5,000 unit SQ BID vial 09/17/19 Lamotrigine [Lamictal -] 50 mg PO BID tablet 09/17/19 Ferrous Sulfate [Feosol] 300 mg GT DAILY 09/28/19 Multivit-Minerals [Certavite-Antioxidant Liquid] 1 cup GT DAILY 09/28/19 Nystatin Cream [Mycostatin Cream -] 100,000 units TP TID 09/28/19 Omeprazole Pediatric Solution [Omeprazole Pediatric Oral Solution] 20 ml GT DAILY 09/28/19 clonazePAM [Klonopin -] 0.25 mg GT DAILY 09/28/19 Family Medical History Family History: Unable to Obtain, Unremarkable Review of Systems Unable to obtain ROS, reason: Clinical status Nephrology Consult - Height Height: 62 ft - Weight Weight: 46.947 kg - BMI Body Mass Index (BMI): 0.1 - Lab Results CBC,BMP: CBC, BMP 09/29/19 05:40 09/29/19 05:40 Anion Gap: Anion Gap Anion Gap 7 MMOL/L (8-16) L 09/29/19 05:40 - Imaging Chest X-ray: Report Reviewed Cat Scan: Report Reviewed, Image Reviewed - Physical Examination Vital Signs: Vital Signs Temperature 99.6 F 09/29/19 14:00 Pulse Rate 105 H 09/29/19 16:00 Respiratory Rate 16 09/29/19 16:00 Blood Pressure 91/50 L 09/29/19 16:00 O2 Sat by Pulse Oximetry (%) 100 09/29/19 09:00 Constitutional: Yes: No Distress HENT: Yes: Atraumatic Cardiovascular: Yes: Regular Rate and Rhythm Respiratory: Yes: Diminished, Mechanically Ventilated, Other (via trach) Extremities: No: Cold, Cool, Cyanosis Edema: No Neurological: Yes: Other (awake) Assessment/Plan 69 year old male with hitory of chronic respiratory failure on the vent, COPD, Parkinsons, seizure disorder, cerebral palsy who presented [place] with dislodged feeding tube and found to have suspected sepsis/shock and w/o means of enteral nutrition. 1. Sepsis/Shock 2. Dislodged feeding tube 3. Hypoalbuminemia/malnutrition 4. Hypomagnesemia 5. Anemia BP now stable continue isotonic fluids for BP support Empiric antibiotics as per ICU, f/u cultures vent support Trend H/H, transfuse as per ICU protocol Will start Clinimix for some nutrition support would consider placing NGT if PEG/G-tube cannot be replaced in a timly manner Supplement Mg will follow up as needed Thank you Mat Julian DO
--- NOTE | 2019-09-29 18:20 | CONS ---
DATE OF CONSULTATION: DATE OF DICTATION: 09/29/2019 INFECTIOUS DISEASE CONSULTATION HISTORY OF PRESENT ILLNESS: The patient is a 69-year-old male who appears older than stated age who is evaluated for sepsis. He was admitted from the [facility] on September 28, 2019, with an occluded J-tube. In the emergency room, the patient was noted to be hypotensive and febrile. Urinalysis showed many white cells. A chest x-ray showed right-sided infiltrate. CAT scan of the chest confirmed the presence of extensive right-sided infiltrate. He is unable to give any additional history secondary to his mental status. He suffers from dementia, parkinsonism, and schizophrenia. He was recently hospitalized from September 11 through September 15, 2019, with a malfunctioning feeding gastrostomy. His hospital course has been complicated by fever to 101 and elevated white blood cell count. He was empirically treated with vancomycin, cefepime, and gentamicin. At the present time, he is awake. However, he is not verbally responsive. PAST MEDICAL HISTORY: Positive for parkinsonism, schizophrenia, cerebral palsy, COPD, decubitus ulcers, chronic respiratory failure. PAST SURGICAL HISTORY: Status post feeding gastrostomy, tracheostomy. ALLERGIES: No known allergies. MEDICATION: Include: 1. Cefepime. 2. Vancomycin. 3. Albuterol. 4. Feosol. 5. Tylenol. 6. Lamictal. 7. Pepcid. SOCIAL HISTORY: He suffers according to the notes from cerebral palsy, schizophrenia, and parkinsonism. He is dependent on activities of daily living. No active tobacco or alcohol use. SYSTEMS REVIEW: Neurologic: As per HPI. Cardiac: Negative for chest pain or palpitations. Respiratory: As per HPI. Gastrointestinal: Positive for feeding gastrostomy and jejunostomy. Genitourinary: Positive for urinary tract infection and recurrent urinary tract infections. LABORATORY DATA: White count 11.2, hematocrit 26.3, platelet count 415, creatinine 0.5. Urinalysis: 167 white cells. Urine culture: Mixed organisms. Previous sputum cultures positive for resistant pseudomonas. COVID-19 PCR negative. Chest x-ray, opacified right hemithorax. CAT scan shows extensive right-sided infiltrate. PHYSICAL EXAMINATION: General: On exam, he is awake. He is in no acute respiratory distress. Vital signs: Temperature 101.1, blood pressure 110/67, pulse 80 regular, respirations 16 per minute. HEENT: Sclerae anicteric. Cardiovascular: Heart sounds S1, S2. Lungs: Rhonchi bilaterally. Abdomen: Soft, no tenderness elicited. There is a gastrostomy as well as a J-tube. Extremities: Contracted 1+ edema. Multiple decubitus ulcers present. IMPRESSION: 1. Sepsis, several potential sources. 2. Urinary tract infection, possible sepsis secondary to urinary tract infection. 3. Right-sided pneumonia, rule out nursing-home required versus aspiration. 4. Chronic respiratory failure. 5. Exacerbation chronic obstructive pulmonary disease. 6. Parkinsonism. 7. Schizophrenia. 8. History of resistant pseudomonas in sputum. Await sepsis workup. Continue empiric antibiotic coverage with cefepime and vancomycin. Further recommendations pending cultures. Aspiration precautions. Prognosis is guarded. Critical care time is spent 35 minutes. Thank you for the kind referral. ALKA SKINNER M.D. [id number]
[2019-09-29] MEDS ORDERED: CEFEPIME HCL 1 GM VIAL (RESTRICTED TO ID) ONE (19:01)
[2019-09-29] MEDS ORDERED: DEXTROSE 5%-WATER - 50 ML IVPB ONE (19:01)
[2019-09-29] MEDS: DEXTROSE 5%-LACTATED RINGERS 1,000 ML IV SCH (19:11)
[2019-09-29] MEDS: CEFEPIME 1 GM in DEXTROSE 5%-WATER - 50 ML IVPB SCH (19:11)
[2019-09-29] MEDS: AMINO ACIDS 4.25%/D5W 1,000 ML IV SCH (21:25)
[2019-09-29] MEDS: CHLORHEXIDINE GLUCONATE 4% CLEANSER FOR DECOLONIZATION TP SCH (23:28)
[2019-09-30] MEDS ORDERED: CEFEPIME HCL 1 GM VIAL (RESTRICTED TO ID) ONE ×3 (02:08→16:48)
[2019-09-30] MEDS ORDERED: DEXTROSE 5%-WATER - 50 ML IVPB ONE ×3 (02:08→16:49)
[2019-09-30] MEDS: CEFEPIME 1 GM in DEXTROSE 5%-WATER - 50 ML IVPB SCH ×3 (02:45→18:00)
[2019-09-30] MEDS: MUPIROCIN 2% TOPICAL OINTMENT FOR DECOLONIZATION NS SCH ×3 (02:52→22:46)
[2019-09-30] MEDS: VANCOMYCIN 1 GRAM (PRE-DOCKED) 1,000 MG/250 ML BAG IVPB SCH ×2 (03:30→15:00)
[2019-09-30] MEDS ORDERED: PT OWN MED DRAWER 7, Y5N ONE ×4 (03:38→21:16)
[2019-09-30] MEDS: NYSTATIN 100,000 UNIT/GM TOPICAL CREAM 15 GM TUBE TP SCH ×3 (05:46→22:47)
[2019-09-30 07:18] LABS: BASO % 0.5 % (0-2.0); EOS % 1.7 % (0-4.5); HEMATOCRIT 25.2 % (35.4-49); HEMOGLOBIN 8.2 GM/dL (11.7-16.9); LYMPH % 13.5 % (8-40); MCH 28.5 pg (25.7-33.7); MCHC 32.5 g/dl (32.0-35.9); MEAN CELL VOLUME 87.8 fl (80-96); MEAN PLT VOLUME 7.8 fl (7.5-11.1); MONO % 4.3 % (3.8-10.2); PLATELET COUNT 371 K/MM3 (134-434); RBC 2.87 M/mm3 (4.00-5.60); RDW 17.9 % (11.9-15.9); WHITE BLOOD COUNT 9.6 K/mm3 (4.0-10.0)
[2019-09-30 07:55] LABS: ALBUMIN 1.5 g/dl (3.4-5.0); BLOOD UREA NITROGEN 11.4 mg/dL (7-18); CALCIUM 9.5 mg/dL (8.5-10.1); MAGNESIUM 2.2 mg/dL (1.8-2.4); POTASSIUM 3.3 mmol/L (3.5-5.1)
[2019-09-30 07:58] LABS: BILIRUBIN,TOTAL 0.4 mg/dL (0.2-1); CREATININE 0.4 mg/dL (0.55-1.3); PHOSPHOROUS 1.8 mg/dL (2.5-4.9); TOT PROT 5.4 g/dl (6.4-8.2)
[2019-09-30] MEDS: ALBUTEROL SO4 0.083% IH SOL 2.5 MG/3 ML VIAL.NEB. NEB SCH ×4 (09:05→20:51)
[2019-09-30] MEDS: AMINO ACIDS/PROTEIN HYDROLYS 30 ML LIQUID.PKT PO SCH ×3 (09:09→16:58)
[2019-09-30] MEDS: MULTIVIT-MINERALS ORAL LIQUID PO SCH ×2 (09:09→12:29)
[2019-09-30] MEDS: FERROUS SO4 300 MG/5 ML ORAL SOLN UNIT DOSE CUPS GT SCH ×3 (09:09→22:46)
[2019-09-30] MEDS: FAMOTIDINE 40 MG/5 ML ORAL SUSPENSION NGT SCH ×3 (09:10→22:46)
[2019-09-30] MEDS: clonazePAM 0.5 MG TABLET GT SCH ×2 (09:10→12:30)
[2019-09-30] MEDS: lamoTRIgine 25 MG TABLET PO SCH ×3 (09:10→22:46)
[2019-09-30] MEDS ORDERED: SODIUM PHOSPHATE - 20 MM in SODIUM CHLORIDE 250 ML IVPB ONE (10:00)
[2019-09-30] MEDS: KCL 10 MEQ IVPB 10 MEQ/100 ML INFUS.BAG IVPB SCH ×3 (10:30→14:30)
--- NOTE | 2019-09-30 10:44 | PN ---
Progress Note, Physician Chief Complaint: UTI Chronic respiratory failure Clogged J tube Pneumonia History of Present Illness: NAD on mechanical vent Awaiting J tube G tube draining, is not used for feeding due to aspiration pneumonia - Current Medication List Current Medications: Active Medications Acetaminophen (Tylenol Oral Solution -) 650 mg GT Q4H PRN PRN Reason: PAIN 1-3 Albuterol Sulfate (Ventolin 0.083% Nebulizer Soln -) 1 amp NEB RQID [facility] Last Admin: 09/30/19 09:05 Dose: 1 amp Documented by: Amino Acids (Prosource No Carb Liquid Pkt) 30 ml PO BID@0800,1730 [facility] Last Admin: 09/30/19 09:09 Dose: Not Given Documented by: Chlorhexidine Gluconate (Hibiclens For Decolonization -) 1 applic TP HS [facility] Last Admin: 09/29/19 23:28 Dose: 1 applic Documented by: Clonazepam (Klonopin -) 0.25 mg GT DAILY [facility] Last Admin: 09/30/19 09:10 Dose: Not Given Documented by: Clotrimazole (Lotrisone Cream (Small Tube)) 1 applic TP BID [facility] Last Admin: 09/29/19 23:28 Dose: 1 applic Documented by: Collagenase (Santyl -) 1 applic TP DAILY [facility]; Protocol Last Admin: 09/29/19 14:13 Dose: 1 applic Documented by: Famotidine (Pepcid) 20 mg NGT BID [facility] Last Admin: 09/30/19 09:10 Dose: Not Given Documented by: Ferrous Sulfate (Feosol) 300 mg GT BID [facility] Last Admin: 09/30/19 09:09 Dose: Not Given Documented by: Heparin Sodium (Porcine) (Heparin -) 5,000 unit SQ BID [facility] Last Admin: 09/29/19 23:28 Dose: 5,000 unit Documented by: Cefepime HCl 1 gm/ Dextrose 50 mls @ 100 mls/hr IVPB Q8H-IV [facility]; Protocol Last Admin: 09/30/19 02:45 Dose: 100 mls/hr Documented by: Vancomycin HCl (Vancomycin (Pre-Docked)) 1,000 mg in 250 mls @ 166.667 mls/hr IVPB Q12H [facility]; Protocol Last Admin: 09/30/19 03:30 Dose: 166.667 mls/hr Documented by: Dextrose/Lactated Ringer's (D5-Lr -) 1,000 mls @ 75 mls/hr IV ASDIR [facility] Last Admin: 09/29/19 19:11 Dose: 75 mls/hr Documented by: Amino Acids (Clinimix -) 1,000 mls @ 42 mls/hr IV Q24H [facility] Last Admin: 09/29/19 21:25 Dose: 42 mls/hr Documented by: Potassium Chloride (Potassium Chloride 10 Meq Premix Ivpb -) 10 meq in 100 mls @ 100 mls/hr IVPB Q60M [facility] Stop: 09/30/19 12:14 Sodium Phosphate 20 mm/ Sodium (Chloride) 256.6667 mls @ 62.5 mls/hr IVPB ONCE ONE Stop: 09/30/19 14:06 Lamotrigine (Lamictal -) 50 mg PO BID [facility] Last Admin: 09/30/19 09:10 Dose: Not Given Documented by: Multivitamins/Minerals (Certavite-Antioxidant Liquid) 15 ml PO DAILY [facility] Last Admin: 09/30/19 09:09 Dose: Not Given Documented by: Mupirocin (Bactroban Ointment (For Decolonization) -) 1 applic NS BID [facility] Stop: 10/03/19 23:14 Last Admin: 09/30/19 02:52 Dose: 1 applic Documented by: Nystatin (Mycostatin Cream -) 1 applic TP TID [facility] Last Admin: 09/30/19 05:46 Dose: 1 applic Documented by: - Objective Vital Signs: Vital Signs Temperature 97.8 F 09/30/19 06:00 Pulse Rate 73 09/30/19 08:10 Respiratory Rate 15 09/30/19 08:10 Blood Pressure 115/61 09/30/19 08:00 O2 Sat by Pulse Oximetry (%) 100 09/30/19 09:00 Constitutional: Yes: No Distress, Calm, Cachectic Cardiovascular: Yes: Regular Rate and Rhythm Respiratory: Yes: Regular, CTA Bilaterally, Mechanically Ventilated Gastrointestinal: Yes: Normal Bowel Sounds, Soft Genitourinary: Yes: Incontinence Musculoskeletal: Yes: Muscle Weakness Extremities: Yes: Other (generalized atrophy and contractures) Edema: No Peripheral Pulses WNL: Yes Integumentary: Yes: Pressure Ulcer (multiple) Wound/Incision: Yes: Dressing Dry and Intact Neurological: Yes: Alert, Pre-Existing Deficit Psychiatric: Yes: Alert Labs: CBC, BMP 09/30/19 05:15 09/30/19 05:15 INR, PTT INR Cancelled 09/28/19 10:55 Problem List - Problems (1) UTI (urinary tract infection) Assessment/Plan: -UC: Microbiology 09/28/19 11:15 Urine Culture - Preliminary Urine - Urine - Catheterized Proteus Species Chryseobacterium Indologenes 2 Lactose Fermenting Neg Bacilli Pending Organism 09/28/19 10:55 Blood Culture - Preliminary Blood - Peripheral Venous NO GROWTH OBTAINED AFTER 24 HOURS, INCUBATION TO CONTINUE FOR 4 DAYS. 09/28/19 10:55 Blood Culture - Preliminary Blood - Peripheral Venous NO GROWTH OBTAINED AFTER 24 HOURS, INCUBATION TO CONTINUE FOR 4 DAYS. -IV Cefepime+ Zosyn -ID consult -Febrile overnight Problems reviewed: Yes Code(s): N39.0 - URINARY TRACT INFECTION, SITE NOT SPECIFIED (2) Anemia Assessment/Plan: -Previously TAM on 09/15/19 -Start Feosol BID -Venofer if BC negative -repeat Stool OB -Monitor trend -Transfuse only if Hg<7.0 to avoid fluid overload Problems reviewed: Yes Code(s): D64.9 - ANEMIA, UNSPECIFIED Qualifiers: (3) Chronic respiratory failure Assessment/Plan: [facility] Problems reviewed: Yes Code(s): J96.10 - CHRONIC RESPIRATORY FAILURE, UNSP W HYPOXIA OR HYPERCAPNIA Qualifiers: (4) Malfunctioning jejunostomy tube Assessment/Plan: -Awaiting J tube delivery -May use G tube for Medications Code(s): K94.13 - ENTEROSTOMY MALFUNCTION (5) Pneumonia Assessment/Plan: -HOB elevated>30 degrees -IV Cefepime + Vanco -ID consult -febrile overnight, afebrile now -COVID 19 PCR negative -DO NOT USE G-TUBE for feeding -Elevate bed to 30-45 degrees for at least 30 mins after medical numerical control operator Problems reviewed: Yes Code(s): J18.9 - PNEUMONIA, UNSPECIFIED ORGANISM Qualifiers: Pneumonia type: due to other aerobic Gram-negative bacteria Laterality: bilateral Lung location: lower lobe of lung Qualified Code(s): J15.6 - Pneumonia due to other Gram-negative bacteria (6) Cerebral palsy Problems reviewed: Yes Code(s): G80.9 - CEREBRAL PALSY, UNSPECIFIED Qualifiers: (7) Functional quadriplegia Problems reviewed: Yes Code(s): R53.2 - FUNCTIONAL QUADRIPLEGIA (8) Severe malnutrition Assessment/Plan: -Multivitamin -Prosource BID Code(s): E43 - UNSPECIFIED SEVERE PROTEIN-CALORIE MALNUTRITION Assessment/Plan See problem list
[2019-09-30] MEDS: CLOTRIMAZOLE/BETAMET DIPROP 15 GM TUBE TP SCH ×2 (11:00→22:47)
[2019-09-30] MEDS: HEPARIN NA (PORCINE) 5,000 UNITS/ML 1ML VIAL SQ SCH ×2 (11:00→22:46)
--- NOTE | 2019-09-30 11:05 | PN ---
Physical Exam: SUBJECTIVE: Patient seen and examined at bedside. Overnight there were no acute events. This AM he remains unable to participate in medical interview. OBJECTIVE: Vital Signs Period Temp Pulse Resp BP Sys/Gomez Pulse Ox Last 24 Hr 97.6 F-100.5 F 73-105 13-17 84-125/49-79 96-100 GENERAL: frail, chronically ill-appearing, no obvious distress, appears dehydrated, nonverbal but tracks examiner with eyes HEENT: PERRLA, EOMI, dry mucous membranes NECK/BACK: no obvious midline ttp, no spinal stepoff or deformity, no hematoma, full ROM, neck supple CARDIOVASCULAR: regular rate/rhythm, no MGR, strong peripheral pulses, capillary refill 3 seconds, no edema RESPIRATORY: trach in place and hooked up to vent, no increased WOB, coarse breath sounds bilaterally worse on the right side, decreased breath sounds on right compared with left, bilateral mild expiratory wheezes. Vent 12/400/40%/5 GI/ABDOMEN: G and J tubes in place, symmetric [id number], normoactive BS, soft, no obvious ttp, no midline pulsatile masses : suprapubic cath in place draining MSK/EXTREMITIES: chronic-appearing muscle atrophy, no acute deformity, in pressure boots DERM/SKIN: warm and dry, no pallor, no pathologic-appearing bruising, lower thoracic advance-stage pressure ulcer overlying spine, sacral decubitus ulcer, right hip pressure ulcer NEUROLOGICAL: eyes open and tracking examiner, CN II-XII grossly intact, no facial droop, leaning to right side, contracted Lines: LIJ CVC placed overnight, PIV Tubes: PEG and G-J tube Drains: Trach collar & Vent: Volume AC Drips: LR @ 100cc/h Anti Infectives: vanc/cefepime/gent Laboratory Results - last 24 hr 09/30/19 09/30/19 05:15 05:15 WBC 9.6 RBC 2.87 L Hgb 8.2 L Hct 25.2 L MCV 87.8 MCH 28.5 MCHC 32.5 RDW 17.9 H Plt Count 371 MPV 7.8 Absolute Neuts (auto) 7.7 Neutrophils % 80.0 Lymphocytes % 13.5 Monocytes % 4.3 Eosinophils % 1.7 Basophils % 0.5 Nucleated RBC % 0 Sodium 137 Potassium 3.3 L Chloride 105 Carbon Dioxide 23 Anion Gap 8 BUN 11.4 Creatinine 0.4 L Est GFR (CKD-EPI)AfAm 140.46 Est GFR (CKD-EPI)NonAf 121.19 Random Glucose 105 Calcium 9.5 Phosphorus 1.8 L Magnesium 2.2 Total Bilirubin 0.4 AST 18 ALT 12 L Alkaline Phosphatase 72 Total Protein 5.4 L Albumin 1.5 L Active Medications Generic Name Dose Route Start Last Admin Trade Name Freq PRN Reason Stop Dose Admin Acetaminophen 650 mg 09/28/19 17:40 Tylenol Oral Solution - GT Q4H PRN PAIN 1-3 Albuterol Sulfate 1 amp 09/28/19 20:00 09/30/19 09:05 Ventolin 0.083% Nebulizer Soln - NEB 1 amp RQID [facility] Administration Amino Acids 30 ml 09/29/19 17:30 09/30/19 09:09 Prosource No Carb Liquid Pkt PO Not Given BID@0800,1730 [facility] Chlorhexidine Gluconate 1 applic 09/29/19 22:00 09/29/19 23:28 Hibiclens For Decolonization - TP 1 applic HS [facility] Administration Clonazepam 0.25 mg 09/29/19 10:00 09/30/19 09:10 Klonopin - GT Not Given DAILY [facility] Clotrimazole 1 applic 09/29/19 12:00 09/29/19 23:28 Lotrisone Cream (Small Tube) TP 1 applic BID [facility] Administration Collagenase 1 applic 09/29/19 12:30 09/29/19 14:13 Santyl - TP 1 applic DAILY [facility] Administration Protocol Famotidine 20 mg 09/28/19 22:00 09/30/19 09:10 Pepcid NGT Not Given BID [facility] Ferrous Sulfate 300 mg 09/29/19 11:45 09/30/19 09:09 Feosol GT Not Given BID [facility] Heparin Sodium (Porcine) 5,000 unit 09/28/19 22:00 09/29/19 23:28 Heparin - SQ 5,000 unit BID [facility] Administration Cefepime HCl 1 gm/ Dextrose 50 mls @ 100 mls/hr 09/29/19 18:00 09/30/19 10:00 IVPB 100 mls/hr Q8H-IV [facility] Administration Protocol Vancomycin HCl 1,000 mg in 250 mls @ 166.667 mls/hr 09/29/19 15:00 09/30/19 03:30 Vancomycin (Pre-Docked) IVPB 166.667 mls/hr Q12H [facility] Administration Protocol Dextrose/Lactated Ringer's 1,000 mls @ 75 mls/hr 09/29/19 17:29 09/29/19 19:11 D5-Lr - IV 75 mls/hr ASDIR [facility] Administration Amino Acids 1,000 mls @ 42 mls/hr 09/29/19 17:30 09/29/19 21:25 Clinimix - IV 42 mls/hr Q24H [facility] Administration Potassium Chloride 10 meq in 100 mls @ 100 mls/hr 09/30/19 09:15 09/30/19 10:30 Potassium Chloride 10 Meq Premix Ivpb - IVPB 09/30/19 12:14 100 mls/hr Q60M [facility] Administration Sodium Phosphate 20 mm/ Sodium 256.6667 mls @ 62.5 mls/hr 09/30/19 10:00 Chloride IVPB 09/30/19 14:06 ONCE ONE Lamotrigine 50 mg 09/28/19 22:00 09/30/19 09:10 Lamictal - PO Not Given BID [facility] Multivitamins/Minerals 15 ml 09/29/19 11:45 09/30/19 09:09 Certavite-Antioxidant Liquid PO Not Given DAILY [facility] Mupirocin 1 applic 09/28/19 23:15 09/30/19 02:52 Bactroban Ointment (For Decolonization) - NS 10/03/19 23:14 1 applic BID [facility] Administration Nystatin 1 applic 09/28/19 22:00 09/30/19 05:46 Mycostatin Cream - TP 1 applic TID [facility] Administration ASSESSMENT/PLAN: 69 y/o male PMH Parkinsons, schizophrenia, seizures, HTN, chronic respiratory failure with tracheostomy, PNA, multiple pressure ulcers (back sacral), C-diff enterocolitis, PEG and G-J tube (placed by IR on 09/14/19 then G tube replaced on 09/22/19 for decompression). He was BIB[facility]S from [facility] for clogged J-tubed then found to have urosepsis and likely PNA as well, persistently hypotensive/septic shock in the ED. # Neuro/psych: seizure disorder (one sz in ED yesterday), CP, Parkinsons, schizophrenia -Ativan prn seizure or agitation -Continue home lamotrigine #Cardiovascular: hypotension -IVF -Monitor BP #Pulm: aspiration PNA RLL consolidation on CT, COPD, chronic trach/vent -Vent 12/400/40%/5 -Vanc/cefipime day 2 -HOB at ~40 deg aspiration precautions -Suctioning -Bronchodilators prn #Gastrointestinal: G-J tube malfunction, PEG tube, ventral hernia -Appropriate J tube ordered and will be placed -G tube functional #Genitourinary: complicated UTI -Continue abx -UO 100cc -Cr 0.4 #Hematologic: chronic iron deficiency anemia, thrombocytosis -Monitor #Infectious Disease: UTI, complicated and PNA, likely aspiration, COVID-19 p ending -Continue vanc/cefepime #Dermatology: lower thoracic and sacral pressure ulcers -Dressing changes -Monitor for infection -Turn/reposition #FEN: -IVF LR @ 75 cc/h #Prophylaxis: -DVT: HSQ -GI: Continue home famotidine, hold feeds until G/J tubes functioning #Dispo: transfer to med/surg. Visit type - Emergency Visit Emergency Visit: No - New Patient This patient is new to me today: No - Critical Care Critical Care patient: Yes Total Critical Care Time (in minutes): 36 Critical Care Statement: The care of this patient involved high complexity decision making to prevent further life threatening deterioration of the patient's condition and/or to evaluate & treat vital organ system(s) failure or risk of failure. ATTENDING PHYSICIAN STATEMENT I saw and evaluated the patient. I reviewed the resident's note and discussed the case with the resident. I agree with the resident's findings and plan as documented. SUBJECTIVE: OBJECTIVE: ASSESSMENT AND PLAN:
--- NOTE | 2019-09-30 11:38 | PN ---
Teaching Attending Note Name of Resident: Carmelo Costa ATTENDING PHYSICIAN STATEMENT I saw and evaluated the patient. I reviewed the resident's note and discussed the case with the resident. I agree with the resident's findings and plan as documented. SUBJECTIVE: Patient seen and examined in the ICU. Lethargic on AC Mode of vent. Hemodynamics stable with IVF resuscitation. Did not require pressors overnight. Intake & Output 09/27/19 09/28/19 09/29/19 09/30/19 23:59 23:59 23:59 23:59 Intake Total 2253 Output Total 25 100 400 Balance -25 2153 -400 Weight 118 lb 4.8 oz 103 lb 8 oz 104 lb 9.6 oz Last Vital Signs Temp Pulse Resp BP Pulse Ox 97.8 F 73 15 115/61 100 09/30/19 06:00 09/30/19 08:10 09/30/19 08:10 09/30/19 08:00 09/30/19 09:00 Active Medications Acetaminophen (Tylenol Oral Solution -) 650 mg GT Q4H PRN PRN Reason: PAIN 1-3 Albuterol Sulfate (Ventolin 0.083% Nebulizer Soln -) 1 amp NEB RQID [facility] Last Admin: 09/30/19 09:05 Dose: 1 amp Documented by: Amino Acids (Prosource No Carb Liquid Pkt) 30 ml PO BID@0800,1730 [facility] Last Admin: 09/30/19 09:09 Dose: Not Given Documented by: Chlorhexidine Gluconate (Hibiclens For Decolonization -) 1 applic TP HS [facility] Last Admin: 09/29/19 23:28 Dose: 1 applic Documented by: Clonazepam (Klonopin -) 0.25 mg GT DAILY [facility] Last Admin: 09/30/19 09:10 Dose: Not Given Documented by: Clotrimazole (Lotrisone Cream (Small Tube)) 1 applic TP BID [facility] Last Admin: 09/29/19 23:28 Dose: 1 applic Documented by: Collagenase (Santyl -) 1 applic TP DAILY [facility]; Protocol Last Admin: 09/29/19 14:13 Dose: 1 applic Documented by: Famotidine (Pepcid) 20 mg NGT BID [facility] Last Admin: 09/30/19 09:10 Dose: Not Given Documented by: Ferrous Sulfate (Feosol) 300 mg GT BID [facility] Last Admin: 09/30/19 09:09 Dose: Not Given Documented by: Heparin Sodium (Porcine) (Heparin -) 5,000 unit SQ BID [facility] Last Admin: 09/29/19 23:28 Dose: 5,000 unit Documented by: Cefepime HCl 1 gm/ Dextrose 50 mls @ 100 mls/hr IVPB Q8H-IV [facility]; Protocol Last Admin: 09/30/19 10:00 Dose: 100 mls/hr Documented by: Vancomycin HCl (Vancomycin (Pre-Docked)) 1,000 mg in 250 mls @ 166.667 mls/hr IVPB Q12H [facility]; Protocol Last Admin: 09/30/19 03:30 Dose: 166.667 mls/hr Documented by: Dextrose/Lactated Ringer's (D5-Lr -) 1,000 mls @ 75 mls/hr IV ASDIR [facility] Last Admin: 09/29/19 19:11 Dose: 75 mls/hr Documented by: Amino Acids (Clinimix -) 1,000 mls @ 42 mls/hr IV Q24H [facility] Last Admin: 09/29/19 21:25 Dose: 42 mls/hr Documented by: Potassium Chloride (Potassium Chloride 10 Meq Premix Ivpb -) 10 meq in 100 mls @ 100 mls/hr IVPB Q60M [facility] Stop: 09/30/19 12:14 Last Admin: 09/30/19 10:30 Dose: 100 mls/hr Documented by: Sodium Phosphate 20 mm/ Sodium (Chloride) 256.6667 mls @ 62.5 mls/hr IVPB ONCE ONE Stop: 09/30/19 14:06 Lamotrigine (Lamictal -) 50 mg PO BID [facility] Last Admin: 09/30/19 09:10 Dose: Not Given Documented by: Multivitamins/Minerals (Certavite-Antioxidant Liquid) 15 ml PO DAILY [facility] Last Admin: 09/30/19 09:09 Dose: Not Given Documented by: Mupirocin (Bactroban Ointment (For Decolonization) -) 1 applic NS BID [facility] Stop: 10/03/19 23:14 Last Admin: 09/30/19 02:52 Dose: 1 applic Documented by: Nystatin (Mycostatin Cream -) 1 applic TP TID [facility] Last Admin: 09/30/19 05:46 Dose: 1 applic Documented by: GENERAL: frail, chronically ill-appearing, Vented HEENT: dry mucous membranes CARDIOVASCULAR: regular rate/rhythm LUNGS/RESPIRATORY: Vented, trach intact, coarse breath sounds bilaterally, no wheezes GI/ABDOMEN: G and J tubes in place, (+) BS, soft : suprapubic cath in place draining MSK/EXTREMITIES: chronic-appearing muscle atrophy, no acute deformity, in pressure boots DERM/SKIN: warm and dry, no pallor, no pathologic-appearing bruising, lower thoracic advance-stage pressure ulcer overlying spine, sacral decubitus ulcer, right hip pressure ulcer NEUROLOGICAL: Lethargic, contracted Laboratory Results - last 24 hr 09/30/19 09/30/19 05:15 05:15 WBC 9.6 RBC 2.87 L Hgb 8.2 L Hct 25.2 L MCV 87.8 MCH 28.5 MCHC 32.5 RDW 17.9 H Plt Count 371 MPV 7.8 Absolute Neuts (auto) 7.7 Neutrophils % 80.0 Lymphocytes % 13.5 Monocytes % 4.3 Eosinophils % 1.7 Basophils % 0.5 Nucleated RBC % 0 Sodium 137 Potassium 3.3 L Chloride 105 Carbon Dioxide 23 Anion Gap 8 BUN 11.4 Creatinine 0.4 L Est GFR (CKD-EPI)AfAm 140.46 Est GFR (CKD-EPI)NonAf 121.19 Random Glucose 105 Calcium 9.5 Phosphorus 1.8 L Magnesium 2.2 Total Bilirubin 0.4 AST 18 ALT 12 L Alkaline Phosphatase 72 Total Protein 5.4 L Albumin 1.5 L ASSESSMENT / PLAN: Sepsis due to a source Chronic respiratory failure Parkinsons Schizophrenia Seizure DO HTN Trach dependent PNA Multiple pressure ulcers History of C-diff colitis PEG and G-J tube ABX per ID IVF resuscitation AC Mode of vent Follow cultures BD TX Problem List - Problems (1) Back wound Code(s): S21.209A - UNSP OPN WND UNSP BK WL OF THORAX W/O PENET THOR CAV, INIT (2) COPD (chronic obstructive pulmonary disease) Code(s): J44.9 - CHRONIC OBSTRUCTIVE PULMONARY DISEASE, UNSPECIFIED Qualifiers: (3) Cerebral palsy Code(s): G80.9 - CEREBRAL PALSY, UNSPECIFIED Qualifiers: (4) Chronic respiratory failure Code(s): J96.10 - CHRONIC RESPIRATORY FAILURE, UNSP W HYPOXIA OR HYPERCAPNIA Qualifiers: (5) Decubital ulcer Code(s): L89.90 - PRESSURE ULCER OF UNSPECIFIED SITE, UNSPECIFIED STAGE (6) Dehydration Code(s): E86.0 - DEHYDRATION (7) Dislodged gastrostomy tube Code(s): Z43.1 - ENCOUNTER FOR ATTENTION TO GASTROSTOMY (8) Parkinson disease Code(s): G20 - PARKINSON'S DISEASE (9) Pleural effusion Code(s): J90 - PLEURAL EFFUSION, NOT ELSEWHERE CLASSIFIED (10) Pneumonia Code(s): J18.9 - PNEUMONIA, UNSPECIFIED ORGANISM Qualifiers: Pneumonia type: due to other aerobic Gram-negative bacteria Laterality: bilateral Lung location: lower lobe of lung Qualified Code(s): J15.6 - Pne umonia due to other Gram-negative bacteria (11) Sepsis Code(s): A41.9 - SEPSIS, UNSPECIFIED ORGANISM (12) UTI (urinary tract infection) Code(s): N39.0 - URINARY TRACT INFECTION, SITE NOT SPECIFIED ASSESSMENT / PLAN: Sepsis due to a source & RLL PNA Chronic respiratory failure Parkinsons Schizophrenia Seizure DO HTN Trach dependent PNA Multiple pressure ulcers History of C-diff colitis PEG and G-J tube ABX per ID IVF resuscitation AC Mode of vent Follow cultures BD TX VTE prophylaxis Local wound care For feeding tube exchange Vent floor Dr Alexandre
[2019-09-30] MEDS: COLLAGENASE CLOSTRIDIUM HIST. 30 GRAMS TUBE TP SCH (12:00)
--- NOTE | 2019-09-30 17:37 | PN ---
Progress Note, Physician Chief Complaint: Sepsis History of Present Illness: Seen and examined in the ICU awake on vent via trach no acute complaints no sob, cp, fever, chills making urine s/p feeding tube replacement today - Current Medication List Current Medications: Active Medications Acetaminophen (Tylenol Oral Solution -) 650 mg GT Q4H PRN PRN Reason: PAIN 1-3 Albuterol Sulfate (Ventolin 0.083% Nebulizer Soln -) 1 amp NEB RQID [facility] Last Admin: 09/30/19 15:56 Dose: 1 amp Documented by: Amino Acids (Prosource No Carb Liquid Pkt) 30 ml PO BID@0800,1730 [facility] Last Admin: 09/30/19 16:58 Dose: 30 ml Documented by: Chlorhexidine Gluconate (Hibiclens For Decolonization -) 1 applic TP HS [facility] Last Admin: 09/29/19 23:28 Dose: 1 applic Documented by: Clonazepam (Klonopin -) 0.25 mg GT DAILY [facility] Last Admin: 09/30/19 12:30 Dose: 0.25 mg Documented by: Clotrimazole (Lotrisone Cream (Small Tube)) 1 applic TP BID [facility] Last Admin: 09/30/19 11:00 Dose: 1 applic Documented by: Collagenase (Santyl -) 1 applic TP DAILY [facility]; Protocol Last Admin: 09/30/19 12:00 Dose: 1 applic Documented by: Famotidine (Pepcid) 20 mg NGT BID [facility] Last Admin: 09/30/19 12:31 Dose: 20 mg Documented by: Ferrous Sulfate (Feosol) 300 mg GT BID [facility] Last Admin: 09/30/19 12:30 Dose: 300 mg Documented by: Heparin Sodium (Porcine) (Heparin -) 5,000 unit SQ BID [facility] Last Admin: 09/30/19 11:00 Dose: 5,000 unit Documented by: Cefepime HCl 1 gm/ Dextrose 50 mls @ 100 mls/hr IVPB Q8H-IV [facility]; Protocol Last Admin: 09/30/19 10:00 Dose: 100 mls/hr Documented by: Vancomycin HCl (Vancomycin (Pre-Docked)) 1,000 mg in 250 mls @ 166.667 mls/hr IVPB Q12H [facility]; Protocol Last Admin: 09/30/19 15:00 Dose: 166.667 mls/hr Documented by: Dextrose/Lactated Ringer's (D5-Lr -) 1,000 mls @ 75 mls/hr IV ASDIR [facility] Last Admin: 09/29/19 19:11 Dose: 75 mls/hr Documented by: Amino Acids (Clinimix -) 1,000 mls @ 42 mls/hr IV Q24H [facility] Last Admin: 09/29/19 21:25 Dose: 42 mls/hr Documented by: Lamotrigine (Lamictal -) 50 mg PO BID [facility] Last Admin: 09/30/19 12:29 Dose: 50 mg Documented by: Multivitamins/Minerals (Certavite-Antioxidant Liquid) 15 ml PO DAILY [facility] Last Admin: 09/30/19 12:29 Dose: 15 ml Documented by: Mupirocin (Bactroban Ointment (For Decolonization) -) 1 applic NS BID [facility] Stop: 10/03/19 23:14 Last Admin: 09/30/19 11:00 Dose: 1 applic Documented by: Nystatin (Mycostatin Cream -) 1 applic TP TID [facility] Last Admin: 09/30/19 14:00 Dose: 1 applic Documented by: - Objective Vital Signs: Vital Signs Temperature 97.8 F 09/30/19 06:00 Pulse Rate 77 09/30/19 15:34 Respiratory Rate 17 09/30/19 15:54 Blood Pressure 123/61 09/30/19 15:34 O2 Sat by Pulse Oximetry (%) 96 09/30/19 15:54 Constitutional: Yes: No Distress HENT: Yes: Atraumatic Cardiovascular: Yes: Regular Rate and Rhythm Respiratory: Yes: Regular, Mechanically Ventilated, Other (trach) Edema: No Labs: CBC, BMP 09/30/19 05:15 09/30/19 05:15 INR, PTT INR Cancelled 09/28/19 10:55 Assessment/Plan 69 year old male with hitory of chronic respiratory failure on the vent, COPD, Parkinsons, seizure disorder, cerebral palsy who presented [place] with dislodged feeding tube and found to have suspected sepsis/shock and w/o means of enteral nutrition. 1. Sepsis/Shock 2. Dislodged feeding tube 3. Hypoalbuminemia/malnutrition 4. Hypomagnesemia 5. Anemia Continue isotonic fluids as per ICU for sepsis management can discontinue clinimix once tube feeds started supplemented phos trend electrolytes daily sepsis management as per ICU will follow up as needed Thank you Mat Julian DO
[2019-09-30] MEDS: AMINO ACIDS 4.25%/D5W 1,000 ML IV SCH (19:00)
[2019-09-30] MEDS: DEXTROSE 5%-LACTATED RINGERS 1,000 ML IV SCH (19:00)
[2019-09-30] MEDS: CHLORHEXIDINE GLUCONATE 4% CLEANSER FOR DECOLONIZATION TP SCH (22:46)
--- NOTE | 2019-09-30 23:18 | PN ---
Progress Note, Physician History of Present Illness: AWAKE, NON VERBAL AFEBRILE - Current Medication List Current Medications: Active Medications Acetaminophen (Tylenol Oral Solution -) 650 mg GT Q4H PRN PRN Reason: PAIN 1-3 Albuterol Sulfate (Ventolin 0.083% Nebulizer Soln -) 1 amp NEB RQID [facility] Last Admin: 09/30/19 20:51 Dose: 1 amp Documented by: Amino Acids (Prosource No Carb Liquid Pkt) 30 ml PO BID@0800,1730 [facility] Last Admin: 09/30/19 16:58 Dose: 30 ml Documented by: Chlorhexidine Gluconate (Hibiclens For Decolonization -) 1 applic TP HS [facility] Last Admin: 09/30/19 22:46 Dose: 1 applic Documented by: Clonazepam (Klonopin -) 0.25 mg GT DAILY [facility] Last Admin: 09/30/19 12:30 Dose: 0.25 mg Documented by: Clotrimazole (Lotrisone Cream (Small Tube)) 1 applic TP BID [facility] Last Admin: 09/30/19 22:47 Dose: 1 applic Documented by: Collagenase (Santyl -) 1 applic TP DAILY [facility]; Protocol Last Admin: 09/30/19 12:00 Dose: 1 applic Documented by: Famotidine (Pepcid) 20 mg NGT BID [facility] Last Admin: 09/30/19 22:46 Dose: 20 mg Documented by: Ferrous Sulfate (Feosol) 300 mg GT BID [facility] Last Admin: 09/30/19 22:46 Dose: 300 mg Documented by: Heparin Sodium (Porcine) (Heparin -) 5,000 unit SQ BID [facility] Last Admin: 09/30/19 22:46 Dose: 5,000 unit Documented by: Cefepime HCl 1 gm/ Dextrose 50 mls @ 100 mls/hr IVPB Q8H-IV [facility]; Protocol Last Admin: 09/30/19 18:00 Dose: 100 mls/hr Documented by: Vancomycin HCl (Vancomycin (Pre-Docked)) 1,000 mg in 250 mls @ 166.667 mls/hr IVPB Q12H [facility]; Protocol Last Admin: 09/30/19 15:00 Dose: 166.667 mls/hr Documented by: Dextrose/Lactated Ringer's (D5-Lr -) 1,000 mls @ 75 mls/hr IV ASDIR [facility] Last Admin: 09/30/19 19:00 Dose: 75 mls/hr Documented by: Lamotrigine (Lamictal -) 50 mg PO BID [facility] Last Admin: 09/30/19 22:46 Dose: 50 mg Documented by: Multivitamins/Minerals (Certavite-Antioxidant Liquid) 15 ml PO DAILY [facility] Last Admin: 09/30/19 12:29 Dose: 15 ml Documented by: Mupirocin (Bactroban Ointment (For Decolonization) -) 1 applic NS BID [facility] Stop: 10/03/19 23:14 Last Admin: 09/30/19 22:46 Dose: 1 applic Documented by: Nystatin (Mycostatin Cream -) 1 applic TP TID [facility] Last Admin: 09/30/19 22:47 Dose: 1 applic Documented by: - Objective Vital Signs: Vital Signs Temperature 99 F 09/30/19 18:00 Pulse Rate 75 09/30/19 20:00 Respiratory Rate 15 09/30/19 23:08 Blood Pressure 114/75 09/30/19 20:00 O2 Sat by Pulse Oximetry (%) 100 09/30/19 21:00 Constitutional: Yes: No Distress Eyes: Yes: Conjunctiva Clear Cardiovascular: Yes: Regular Rate and Rhythm, S1, S2 Respiratory: Yes: Diminished Gastrointestinal: Yes: Normal Bowel Sounds, Soft Peripheral Pulses WNL: No Labs: CBC, BMP 09/30/19 05:15 09/30/19 05:15 INR, PTT INR Cancelled 09/28/19 10:55 Assessment/Plan PNEUMONIA UTI HX MULTI-DRUG RESISTANT ORGANISMS AWAIT C/S CONTINUE CEFEPIME/ VANCOMYCIN
[2019-10-01] MEDS ORDERED: DEXTROSE 5%-WATER - 50 ML IVPB ONE ×3 (01:06→17:29)
[2019-10-01] MEDS ORDERED: CEFEPIME HCL 1 GM VIAL (RESTRICTED TO ID) ONE ×3 (01:06→17:29)
[2019-10-01] MEDS: CEFEPIME 1 GM in DEXTROSE 5%-WATER - 50 ML IVPB SCH ×3 (01:11→17:55)
[2019-10-01] MEDS: VANCOMYCIN 1 GRAM (PRE-DOCKED) 1,000 MG/250 ML BAG IVPB SCH ×2 (03:22→16:00)
[2019-10-01] MEDS: NYSTATIN 100,000 UNIT/GM TOPICAL CREAM 15 GM TUBE TP SCH ×3 (06:30→22:40)
[2019-10-01 06:43] LABS: HEMATOCRIT 27.1 % (35.4-49); HEMOGLOBIN 8.6 GM/dL (11.7-16.9); MCH 28.3 pg (25.7-33.7); MCHC 31.8 g/dl (32.0-35.9); PLATELET COUNT 399 K/MM3 (134-434); RBC 3.05 M/mm3 (4.00-5.60); RDW 17.8 % (11.9-15.9); WHITE BLOOD COUNT 7.8 K/mm3 (4.0-10.0)
[2019-10-01 07:03] LABS: ALBUMIN 1.4 g/dl (3.4-5.0); BILIRUBIN,TOTAL 0.3 mg/dL (0.2-1); BLOOD UREA NITROGEN 10.1 mg/dL (7-18); CALCIUM 9.6 mg/dL (8.5-10.1); CREATININE 0.3 mg/dL (0.55-1.3); MAGNESIUM 2.1 mg/dL (1.8-2.4); PHOSPHOROUS 2.1 mg/dL (2.5-4.9); POTASSIUM 3.4 mmol/L (3.5-5.1); TOT PROT 5.2 g/dl (6.4-8.2)
[2019-10-01] MEDS: ALBUTEROL SO4 0.083% IH SOL 2.5 MG/3 ML VIAL.NEB. NEB SCH ×4 (07:45→20:55)
--- NOTE | 2019-10-01 08:08 | PN ---
Progress Note, Physician - Current Medication List Current Medications: Active Medications Acetaminophen (Tylenol Oral Solution -) 650 mg GT Q4H PRN PRN Reason: PAIN 1-3 Albuterol Sulfate (Ventolin 0.083% Nebulizer Soln -) 1 amp NEB RQID [facility] Last Admin: 09/30/19 20:51 Dose: 1 amp Documented by: Amino Acids (Prosource No Carb Liquid Pkt) 30 ml PO BID@0800,1730 [facility] Last Admin: 09/30/19 16:58 Dose: 30 ml Documented by: Chlorhexidine Gluconate (Hibiclens For Decolonization -) 1 applic TP HS [facility] Last Admin: 09/30/19 22:46 Dose: 1 applic Documented by: Clonazepam (Klonopin -) 0.25 mg GT DAILY [facility] Last Admin: 09/30/19 12:30 Dose: 0.25 mg Documented by: Clotrimazole (Lotrisone Cream (Small Tube)) 1 applic TP BID [facility] Last Admin: 09/30/19 22:47 Dose: 1 applic Documented by: Collagenase (Santyl -) 1 applic TP DAILY [facility]; Protocol Last Admin: 09/30/19 12:00 Dose: 1 applic Documented by: Famotidine (Pepcid) 20 mg NGT BID [facility] Last Admin: 09/30/19 22:46 Dose: 20 mg Documented by: Ferrous Sulfate (Feosol) 300 mg GT BID [facility] Last Admin: 09/30/19 22:46 Dose: 300 mg Documented by: Heparin Sodium (Porcine) (Heparin -) 5,000 unit SQ BID [facility] Last Admin: 09/30/19 22:46 Dose: 5,000 unit Documented by: Cefepime HCl 1 gm/ Dextrose 50 mls @ 100 mls/hr IVPB Q8H-IV [facility]; Protocol Last Admin: 10/01/19 01:11 Dose: 100 mls/hr Documented by: Vancomycin HCl (Vancomycin (Pre-Docked)) 1,000 mg in 250 mls @ 166.667 mls/hr IVPB Q12H [facility]; Protocol Last Admin: 10/01/19 03:22 Dose: 166.667 mls/hr Documented by: Potassium Chloride (Potassium Chloride 10 Meq Premix Ivpb -) 10 meq in 100 mls @ 100 mls/hr IVPB Q60M [facility] Stop: 10/01/19 10:14 Lamotrigine (Lamictal -) 50 mg PO BID [facility] Last Admin: 09/30/19 22:46 Dose: 50 mg Documented by: Multivitamins/Minerals (Certavite-Antioxidant Liquid) 15 ml PO DAILY [facility] Last Admin: 09/30/19 12:29 Dose: 15 ml Documented by: Mupirocin (Bactroban Ointment (For Decolonization) -) 1 applic NS BID [facility] Stop: 10/03/19 23:14 Last Admin: 09/30/19 22:46 Dose: 1 applic Documented by: Nystatin (Mycostatin Cream -) 1 applic TP TID [facility] Last Admin: 10/01/19 06:30 Dose: 1 applic Documented by: - Objective Vital Signs: Vital Signs Temperature 98.1 F 10/01/19 06:00 Pulse Rate 77 10/01/19 07:55 Respiratory Rate 15 10/01/19 07:55 Blood Pressure 136/68 10/01/19 06:00 O2 Sat by Pulse Oximetry (%) 100 10/01/19 07:55 Labs: CBC, BMP 10/01/19 05:15 10/01/19 05:15 INR, PTT INR Cancelled 09/28/19 10:55 Assessment/Plan - Problems (1) UTI (urinary tract infection) Assessment/Plan: -UC: Microbiology 09/29/19 16:30 Sputum - Endotrachea Suction/Ventilator Gram Stain - Final 09/28/19 10:55 Blood - Peripheral Venous Blood Culture - Preliminary NO GROWTH OBTAINED AFTER 48 HOURS, INCUBATION TO CONTINUE FOR 3 DAYS. 09/28/19 10:55 Blood - Peripheral Venous Blood Culture - Preliminary NO GROWTH OBTAINED AFTER 48 HOURS, INCUBATION TO CONTINUE FOR 3 DAYS. 09/28/19 11:15 Urine - Urine - Catheterized Urine Culture - Preliminary Proteus Species Chryseobacterium Indologenes 2 Lactose Fermenting Neg Bacilli Pending Organism -Cefipeme and vanco -ID consult -Febrile overnight Problems reviewed: Yes Code(s): N39.0 - URINARY TRACT INFECTION, SITE NOT SPECIFIED (2) Anemia Assessment/Plan: -Previously TAM on 09/15/19 -Start Feosol BID -Venofer if BC negative -repeat Stool OB -Monitor trend -Transfuse only if Hg<7.0 to avoid fluid overload Problems reviewed: Yes Code(s): D64.9 - ANEMIA, UNSPECIFIED Qualifiers: (3) Chronic respiratory failure Assessment/Plan: -[facility] on [facility]not [facility] Problems reviewed: Yes Code(s): J96.10 - CHRONIC RESPIRATORY FAILURE, UNSP W HYPOXIA OR HYPERCAPNIA Qualifiers: (4) Malfunctioning jejunostomy tube Assessment/Plan: -J tube replaced--feeding resumed -G tube for suctioning Code(s): K94.13 - ENTEROSTOMY MALFUNCTION (5) Pneumonia Assessment/Plan: -HOB elevated>30 degrees -IV Cefepime + Vanco -ID consult -afebrile now -COVID 19 PCR negative -DO NOT USE G-TUBE for feeding -Elevate bed to 30-45 degrees for at least 30 mins after integrative medicine physician Problems reviewed: Yes Code(s): J18.9 - PNEUMONIA, UNSPECIFIED ORGANISM Qualifiers: Pneumonia type: due to other aerobic Gram-negative bacteria Laterality: bilateral Lung location: lower lobe of lung Qualified Code(s): J15.6 - Pneumonia due to other Gram-negative bacteria (6) Cerebral palsy Problems reviewed: Yes Code(s): G80.9 - CEREBRAL PALSY, UNSPECIFIED Qualifiers: (7) Functional quadriplegia Problems reviewed: Yes Code(s): R53.2 - FUNCTIONAL QUADRIPLEGIA (8) Severe malnutrition Assessment/Plan: -Multivitamin -Prosource BID Code(s): E43 - UNSPECIFIED SEVERE PROTEIN-CALORIE MALNUTRITI
[2019-10-01] MEDS ORDERED: POTASSIUM PHOSPHATE 20 MM in SODIUM CHLORIDE 250 ML IVPB ONE (09:00)
[2019-10-01] MEDS ORDERED: PT OWN MED DRAWER 7, Y5N ONE ×2 (09:56→22:10)
[2019-10-01] MEDS: HEPARIN NA (PORCINE) 5,000 UNITS/ML 1ML VIAL SQ SCH ×2 (10:13→22:59)
[2019-10-01] MEDS: lamoTRIgine 25 MG TABLET PO SCH ×2 (10:13→23:00)
[2019-10-01] MEDS: KCL 10 MEQ IVPB 10 MEQ/100 ML INFUS.BAG IVPB SCH ×2 (10:13→13:03)
[2019-10-01] MEDS: clonazePAM 0.5 MG TABLET GT SCH (10:14)
[2019-10-01] MEDS: FERROUS SO4 300 MG/5 ML ORAL SOLN UNIT DOSE CUPS GT SCH ×2 (10:14→22:40)
[2019-10-01] MEDS: MUPIROCIN 2% TOPICAL OINTMENT FOR DECOLONIZATION NS SCH ×2 (10:15→22:40)
[2019-10-01] MEDS: MULTIVIT-MINERALS ORAL LIQUID PO SCH (10:15)
[2019-10-01] MEDS: CLOTRIMAZOLE/BETAMET DIPROP 15 GM TUBE TP SCH ×2 (10:15→22:40)
[2019-10-01] MEDS: COLLAGENASE CLOSTRIDIUM HIST. 30 GRAMS TUBE TP SCH (10:15)
[2019-10-01] MEDS: AMINO ACIDS/PROTEIN HYDROLYS 30 ML LIQUID.PKT PO SCH ×2 (10:45→18:03)
--- NOTE | 2019-10-01 12:02 | PN ---
Progress Note, Physician Chief Complaint: Sepsis History of Present Illness: Seen and examined in the ICU awake on vent via trach on tube feeds - Current Medication List Current Medications: Active Medications Acetaminophen (Tylenol Oral Solution -) 650 mg GT Q4H PRN PRN Reason: PAIN 1-3 Albuterol Sulfate (Ventolin 0.083% Nebulizer Soln -) 1 amp NEB RQID [facility] Last Admin: 10/01/19 11:47 Dose: 1 amp Documented by: Amino Acids (Prosource No Carb Liquid Pkt) 30 ml PO BID@0800,1730 [facility] Last Admin: 10/01/19 10:45 Dose: 30 ml Documented by: Chlorhexidine Gluconate (Hibiclens For Decolonization -) 1 applic TP HS [facility] Last Admin: 09/30/19 22:46 Dose: 1 applic Documented by: Clonazepam (Klonopin -) 0.25 mg GT DAILY [facility] Last Admin: 10/01/19 10:14 Dose: 0.5 mg Documented by: Clotrimazole (Lotrisone Cream (Small Tube)) 1 applic TP BID [facility] Last Admin: 09/30/19 22:47 Dose: 1 applic Documented by: Collagenase (Santyl -) 1 applic TP DAILY [facility]; Protocol Last Admin: 09/30/19 12:00 Dose: 1 applic Documented by: Famotidine (Pepcid) 20 mg NGT BID [facility] Last Admin: 09/30/19 22:46 Dose: 20 mg Documented by: Ferrous Sulfate (Feosol) 300 mg GT BID [facility] Last Admin: 10/01/19 10:14 Dose: 300 mg Documented by: Heparin Sodium (Porcine) (Heparin -) 5,000 unit SQ BID [facility] Last Admin: 10/01/19 10:13 Dose: 5,000 unit Documented by: Cefepime HCl 1 gm/ Dextrose 50 mls @ 100 mls/hr IVPB Q8H-IV [facility]; Protocol Last Admin: 10/01/19 10:15 Dose: 100 mls/hr Documented by: Vancomycin HCl (Vancomycin (Pre-Docked)) 1,000 mg in 250 mls @ 166.667 mls/hr IVPB Q12H [facility]; Protocol Last Admin: 10/01/19 03:22 Dose: 166.667 mls/hr Documented by: Potassium Phosphate 20 mm/ (Sodium Chloride) 256.6667 mls @ 62.5 mls/hr IVPB ONCE ONE Stop: 10/01/19 13:06 Lamotrigine (Lamictal -) 50 mg PO BID [facility] Last Admin: 10/01/19 10:13 Dose: 50 mg Documented by: Multivitamins/Minerals (Certavite-Antioxidant Liquid) 15 ml PO DAILY [facility] Last Admin: 10/01/19 10:15 Dose: 15 ml Documented by: Mupirocin (Bactroban Ointment (For Decolonization) -) 1 applic NS BID [facility] Stop: 10/03/19 23:14 Last Admin: 09/30/19 22:46 Dose: 1 applic Documented by: Nystatin (Mycostatin Cream -) 1 applic TP TID [facility] Last Admin: 10/01/19 06:30 Dose: 1 applic Documented by: - Objective Vital Signs: Vital Signs Temperature 97.7 F 10/01/19 10:56 Pulse Rate 92 H 10/01/19 10:56 Respiratory Rate 15 10/01/19 11:46 Blood Pressure 109/70 10/01/19 10:56 O2 Sat by Pulse Oximetry (%) 99 10/01/19 11:46 Constitutional: Yes: No Distress HENT: Yes: Atraumatic Neck: Yes: Supple Cardiovascular: Yes: Regular Rate and Rhythm Respiratory: Yes: Regular Gastrointestinal: Yes: Soft Extremities: No: Cyanosis Edema: No Neurological: Yes: Alert, Oriented Labs: CBC, BMP 10/01/19 05:15 10/01/19 05:15 INR, PTT INR Cancelled 09/28/19 10:55 Assessment/Plan 69 year old male with hitory of chronic respiratory failure on the vent, COPD, Parkinsons, seizure disorder, cerebral palsy who presented from [place] with dislodged feeding tube and found to have suspected sepsis/shock and w/o means of enteral nutrition. 1. Sepsis/Shock 2. Dislodged feeding tube 3. Hypoalbuminemia/malnutrition 4. Hypomagnesemia 5. Anemia Renal function stable supplement K and phos today Off clinimix trend electrolytes daily sepsis management as per ICU will follow up as needed Thank you Mat Julian DO
--- NOTE | 2019-10-01 12:20 | PN ---
Teaching Attending Note Name of Resident: Carmelo Costa ATTENDING PHYSICIAN STATEMENT I saw and evaluated the patient. I reviewed the resident's note and discussed the case with the resident. I agree with the resident's findings and plan as documented. SUBJECTIVE: Patient seen and examined in the ICU. Awake on AC Mode of vent. Hemodynamics have been stable. JT replaced. Intake & Output 09/28/19 09/29/19 09/30/19 10/01/19 23:59 23:59 23:59 23:59 Intake Total 2253 2780 985 Output Total 25 100 1500 200 Balance -25 2153 1280 785 Weight 118 lb 4.8 oz 103 lb 8 oz 104 lb 107 lb 3.2 oz Last Vital Signs Temp Pulse Resp BP Pulse Ox 97.7 F 92 H 15 109/70 99 10/01/19 10:56 10/01/19 10:56 10/01/19 11:46 10/01/19 10:56 10/01/19 11:46 Active Medications Acetaminophen (Tylenol Oral Solution -) 650 mg GT Q4H PRN PRN Reason: PAIN 1-3 Albuterol Sulfate (Ventolin 0.083% Nebulizer Soln -) 1 amp NEB RQID [facility] Last Admin: 10/01/19 11:47 Dose: 1 amp Documented by: Amino Acids (Prosource No Carb Liquid Pkt) 30 ml PO BID@0800,1730 [facility] Last Admin: 10/01/19 10:45 Dose: 30 ml Documented by: Chlorhexidine Gluconate (Hibiclens For Decolonization -) 1 applic TP HS [facility] Last Admin: 09/30/19 22:46 Dose: 1 applic Documented by: Clonazepam (Klonopin -) 0.25 mg GT DAILY [facility] Last Admin: 10/01/19 10:14 Dose: 0.5 mg Documented by: Clotrimazole (Lotrisone Cream (Small Tube)) 1 applic TP BID [facility] Last Admin: 09/30/19 22:47 Dose: 1 applic Documented by: Collagenase (Santyl -) 1 applic TP DAILY [facility]; Protocol Last Admin: 09/30/19 12:00 Dose: 1 applic Documented by: Famotidine (Pepcid) 20 mg NGT BID [facility] Last Admin: 09/30/19 22:46 Dose: 20 mg Documented by: Ferrous Sulfate (Feosol) 300 mg GT BID [facility] Last Admin: 10/01/19 10:14 Dose: 300 mg Documented by: Heparin Sodium (Porcine) (Heparin -) 5,000 unit SQ BID [facility] Last Admin: 10/01/19 10:13 Dose: 5,000 unit Documented by: Cefepime HCl 1 gm/ Dextrose 50 mls @ 100 mls/hr IVPB Q8H-IV [facility]; Protocol Last Admin: 10/01/19 10:15 Dose: 100 mls/hr Documented by: Vancomycin HCl (Vancomycin (Pre-Docked)) 1,000 mg in 250 mls @ 166.667 mls/hr IVPB Q12H [facility]; Protocol Last Admin: 10/01/19 03:22 Dose: 166.667 mls/hr Documented by: Potassium Phosphate 20 mm/ (Sodium Chloride) 256.6667 mls @ 62.5 mls/hr IVPB ONCE ONE Stop: 10/01/19 13:06 Lamotrigine (Lamictal -) 50 mg PO BID [facility] Last Admin: 10/01/19 10:13 Dose: 50 mg Documented by: Multivitamins/Minerals (Certavite-Antioxidant Liquid) 15 ml PO DAILY [facility] Last Admin: 10/01/19 10:15 Dose: 15 ml Documented by: Mupirocin (Bactroban Ointment (For Decolonization) -) 1 applic NS BID [facility] Stop: 10/03/19 23:14 Last Admin: 09/30/19 22:46 Dose: 1 applic Documented by: Nystatin (Mycostatin Cream -) 1 applic TP TID [facility] Last Admin: 10/01/19 06:30 Dose: 1 applic Documented by: GENERAL: frail, chronically ill-appearing, Vented HEENT: dry mucous membranes CARDIOVASCULAR: regular rate/rhythm LUNGS/RESPIRATORY: Vented, trach intact, coarse breath sounds bilaterally, no wheezes GI/ABDOMEN: G and J tubes in place, (+) BS, soft : suprapubic cath in place draining MSK/EXTREMITIES: chronic-appearing muscle atrophy, no acute deformity, in pressure boots DERM/SKIN: warm and dry, no pallor, no pathologic-appearing bruising, lower thoracic advance-stage pressure ulcer overlying spine, sacral decubitus ulcer, right hip pressure ulcer NEUROLOGICAL: Lethargic, contracted Laboratory Results - last 24 hr 10/01/19 10/01/19 05:15 05:15 WBC 7.8 RBC 3.05 L Hgb 8.6 L Hct 27.1 L MCV 89.0 MCH 28.3 MCHC 31.8 L RDW 17.8 H Plt Count 399 MPV 8.0 Sodium 134 L Potassium 3.4 L Chloride 102 Carbon Dioxide 24 Anion Gap 7 L BUN 10.1 Creatinine 0.3 L Est GFR (CKD-EPI)AfAm 158.09 Est GFR (CKD-EPI)NonAf 136.40 Random Glucose 99 Calcium 9.6 Phosphorus 2.1 L Magnesium 2.1 Total Bilirubin 0.3 AST 15 ALT 11 L Alkaline Phosphatase 73 Total Protein 5.2 L Albumin 1.4 L Problem List - Problems (1) Back wound Code(s): S21.209A - UNSP OPN WND UNSP BK WL OF THORAX W/O PENET THOR CAV, INIT (2) COPD (chronic obstructive pulmonary disease) Code(s): J44.9 - CHRONIC OBSTRUCTIVE PULMONARY DISEASE, UNSPECIFIED Qualifiers: (3) Cerebral palsy Code(s): G80.9 - CEREBRAL PALSY, UNSPECIFIED Qualifiers: (4) Chronic respiratory failure Code(s): J96.10 - CHRONIC RESPIRATORY FAILURE, UNSP W HYPOXIA OR HYPERCAPNIA Qualifiers: (5) Decubital ulcer Code(s): L89.90 - PRESSURE ULCER OF UNSPECIFIED SITE, UNSPECIFIED STAGE (6) Dehydration Code(s): E86.0 - DEHYDRATION (7) Dislodged gastrostomy tube Code(s): Z43.1 - ENCOUNTER FOR ATTENTION TO GASTROSTOMY (8) Parkinson disease Code(s): G20 - PARKINSON'S DISEASE (9) Pleural effusion Code(s): J90 - PLEURAL EFFUSION, NOT ELSEWHERE CLASSIFIED (10) Pneumonia Code(s): J18.9 - PNEUMONIA, UNSPECIFIED ORGANISM Qualifiers: Pneumonia type: due to other aerobic Gram-negative bacteria Laterality: bilateral Lung location: lower lobe of lung Qualified Code(s): J15.6 - Pneumonia due to other Gram-negative bacteria (11) Sepsis Code(s): A41.9 - SEPSIS, UNSPECIFIED ORGANISM (12) UTI (urinary tract infection) Code(s): N39.0 - URINARY TRACT INFECTION, SITE NOT SPECIFIED ASSESSMENT / PLAN: Sepsis due to a source & RLL PNA Chronic respiratory failure Parkinsons Schizophrenia Seizure DO HTN Trach dependent PNA Multiple pressure ulcers History of C-diff colitis PEG and G-J tube ABX per ID : (?) Change to PO IVF AC Mode of vent Follow cultures BD TX VTE prophylaxis Local wound care Vent floor Dr Alexandre
--- NOTE | 2019-10-01 16:12 | PN ---
Physical Exam: SUBJECTIVE: Patient seen and examined at bedside. Overnight his J tube was successfully replaced and feeds resumed. This am he continues to be unable to participate in medical interview. OBJECTIVE: Vital Signs Period Temp Pulse Resp BP Sys/Gomez Pulse Ox Last 24 Hr 97.7 F-99 F 75-92 14-24 103-136/63-93 97-100 GENERAL: frail, chronically ill-appearing, no obvious distress, appears dehydrated, nonverbal but tracks examiner with eyes HEENT: PERRLA, EOMI, dry mucous membranes NECK/BACK: no obvious midline ttp, no spinal stepoff or deformity, no hematoma, full ROM, neck supple CARDIOVASCULAR: regular rate/rhythm, no MGR, strong peripheral pulses, capillary refill 3 seconds, no edema RESPIRATORY: trach in place and hooked up to vent, no increased WOB, coarse breath sounds bilaterally worse on the right side, decreased breath sounds on right compared with left, bilateral mild expiratory wheezes. Vent 12/400/40%/5 GI: G and J tubes in place, symmetric [id number], normoactive BS, soft, no obvious ttp, no midline pulsatile masses : suprapubic cath in place draining MSK/EXTREMITIES: chronic-appearing muscle atrophy, no acute deformity, in pressure boots DERM/SKIN: warm and dry, no pallor, no pathologic-appearing bruising, lower thoracic advance-stage pressure ulcer overlying spine, sacral decubitus ulcer, right hip pressure ulcer NEUROLOGICAL: eyes open and tracking examiner, CN II-XII grossly intact, no facial droop, leaning to right side, contracted Lines: LIJ CVC placed overnight, PIV Tubes: PEG and G-J tube Drains: Trach collar & Vent: Volume AC 12/400/405/5 Drips: LR @ 100cc/h Abx: vanc/cefepime Laboratory Results - last 24 hr 10/01/19 10/01/19 05:15 05:15 WBC 7.8 RBC 3.05 L Hgb 8.6 L Hct 27.1 L MCV 89.0 MCH 28.3 MCHC 31.8 L RDW 17.8 H Plt Count 399 MPV 8.0 Sodium 134 L Potassium 3.4 L Chloride 102 Carbon Dioxide 24 Anion Gap 7 L BUN 10.1 Creatinine 0.3 L Est GFR (CKD-EPI)AfAm 158.09 Est GFR (CKD-EPI)NonAf 136.40 Random Glucose 99 Calcium 9.6 Phosphorus 2.1 L Magnesium 2.1 Total Bilirubin 0.3 AST 15 ALT 11 L Alkaline Phosphatase 73 Total Protein 5.2 L Albumin 1.4 L Active Medications Generic Name Dose Route Start Last Admin Trade Name Freq PRN Reason Stop Dose Admin Acetaminophen 650 mg 09/28/19 17:40 Tylenol Oral Solution - GT Q4H PRN PAIN 1-3 Albuterol Sulfate 1 amp 09/28/19 20:00 10/01/19 15:32 Ventolin 0.083% Nebulizer Soln - NEB 1 amp RQID [facility] Administration Amino Acids 30 ml 09/29/19 17:30 10/01/19 10:45 Prosource No Carb Liquid Pkt PO 30 ml BID@0800,1730 [facility] Administration Chlorhexidine Gluconate 1 applic 09/29/19 22:00 09/30/19 22:46 Hibiclens For Decolonization - TP 1 applic HS [facility] Administration Clonazepam 0.25 mg 09/29/19 10:00 10/01/19 10:14 Klonopin - GT 0.5 mg DAILY [facility] Administration Clotrimazole 1 applic 09/29/19 12:00 09/30/19 22:47 Lotrisone Cream (Small Tube) TP 1 applic BID [facility] Administration Collagenase 1 applic 09/29/19 12:30 09/30/19 12:00 Santyl - TP 1 applic DAILY [facility] Administration Protocol Famotidine 20 mg 09/28/19 22:00 09/30/19 22:46 Pepcid NGT 20 mg BID [facility] Administration Ferrous Sulfate 300 mg 09/29/19 11:45 10/01/19 10:14 Feosol GT 300 mg BID [facility] Administration Heparin Sodium (Porcine) 5,000 unit 09/28/19 22:00 10/01/19 10:13 Heparin - SQ 5,000 unit BID [facility] Administration Cefepime HCl 1 gm/ Dextrose 50 mls @ 100 mls/hr 09/29/19 18:00 10/01/19 10:15 IVPB 100 mls/hr Q8H-IV [facility] Administration Protocol Vancomycin HCl 1,000 mg in 250 mls @ 166.667 mls/hr 09/29/19 15:00 10/01/19 03:22 Vancomycin (Pre-Docked) IVPB 166.667 mls/hr Q12H [facility] Administration Protocol Lamotrigine 50 mg 09/28/19 22:00 10/01/19 10:13 Lamictal - PO 50 mg BID [facility] Administration Multivitamins/Minerals 15 ml 09/29/19 11:45 10/01/19 10:15 Certavite-Antioxidant Liquid PO 15 ml DAILY [facility] Administration Mupirocin 1 applic 09/28/19 23:15 09/30/19 22:46 Bactroban Ointment (For Decolonization) - NS 10/03/19 23:14 1 applic BID [facility] Administration Nystatin 1 applic 09/28/19 22:00 10/01/19 06:30 Mycostatin Cream - TP 1 applic TID [facility] Administration ASSESSMENT/PLAN: 69 y/o male PMH Parkinsons, schizophrenia, seizures, HTN, chronic respiratory failure with tracheostomy, PNA, multiple pressure ulcers (back sacral), C-diff enterocolitis, PEG and G-J tube (placed by IR on 09/14/19 then G tube replaced on 09/22/19 for decompression). He was BIBEMS from [facility] for clogged J-tubed then found to have urosepsis and likely PNA as well, persistently hypotensive/septic shock in the ED. # Neuro/psych: seizure disorder (one sz in ED yesterday), CP, Parkinsons, schizophrenia -Ativan prn seizure or agitation -Continue home lamotrigine #Cardiovascular: hypotension -LR d5 @75 -Monitor BP #Pulm: aspiration PNA RLL consolidation on CT, COPD, chronic trach/vent -Vent 12/400/40%/5 -Vanc/cefipime day 3 -HOB at 40 deg aspiration precautions -Suctioning -Bronchodilators prn #ID: Sepsis due to a source & RLL PNA, COVID-19 NEG -09/28 sputum cx: non-lactose fermenting gnb -09/27 urine cx: proteus species, chryseobacterium indologenes 2, lactose fermenting neg bacilli -09/27 blood cx: no growth #Gastrointestinal: G-J tube malfunction, PEG tube, ventral hernia -s/p J tube replacement -G tube functional #Genitourinary: complicated UTI -Continue abx -UO 1500cc -Cr 0.3 #Hematologic: chronic iron deficiency anemia, thrombocytosis -Monitor #Dermatology: lower thoracic and sacral pressure ulcers -Dressing changes -Monitor for infection -Turn/reposition #FEN: -LR d5 @75 -Monitor electrolytes -jevity + 30 h2o #Prophylaxis: -DVT: HSQ -GI: pepcid 20 bid #Dispo: transfer to med/surg or consider dc to SNF once plan with ID discussed Visit type - Emergency Visit Emergency Visit: No - New Patient This patient is new to me today: No - Critical Care Critical Care patient: Yes Total Critical Care Time (in minutes): 36 Critical Care Statement: The care of this patient involved high complexity decision making to prevent further life threatening deterioration of the patient's condition and/or to evaluate & treat vital organ system(s) failure or risk of failure. ATTENDING PHYSICIAN STATEMENT I saw and evaluated the patient. I reviewed the resident's note and discussed the case with the resident. I agree with the resident's findings and plan as documented. SUBJECTIVE: OBJECTIVE: ASSESSMENT AND PLAN:
[2019-10-01] MEDS ORDERED: LACTATED RINGERS SOLUTION 1000 ML INFUS.BAG IV ONE (16:43)
[2019-10-01] MEDS: FAMOTIDINE 40 MG/5 ML ORAL SUSPENSION NGT SCH ×2 (18:03→22:40)
--- NOTE | 2019-10-01 22:42 | PN ---
Progress Note, Physician History of Present Illness: AWAKE, NON VERBAL AFEBRILE NO ACUTE DISTRESS CULTURES PENDING - Current Medication List Current Medications: Active Medications Acetaminophen (Tylenol Oral Solution -) 650 mg GT Q4H PRN PRN Reason: PAIN 1-3 Albuterol Sulfate (Ventolin 0.083% Nebulizer Soln -) 1 amp NEB RQID [facility] Last Admin: 10/01/19 20:55 Dose: 1 amp Documented by: Amino Acids (Prosource No Carb Liquid Pkt) 30 ml PO BID@0800,1730 [facility] Last Admin: 10/01/19 18:03 Dose: 30 ml Documented by: Chlorhexidine Gluconate (Hibiclens For Decolonization -) 1 applic TP HS [facility] Last Admin: 09/30/19 22:46 Dose: 1 applic Documented by: Clonazepam (Klonopin -) 0.25 mg GT DAILY [facility] Last Admin: 10/01/19 10:14 Dose: 0.5 mg Documented by: Clotrimazole (Lotrisone Cream (Small Tube)) 1 applic TP BID [facility] Last Admin: 10/01/19 10:15 Dose: 1 applic Documented by: Collagenase (Santyl -) 1 applic TP DAILY [facility]; Protocol Last Admin: 10/01/19 10:15 Dose: 1 applic Documented by: Famotidine (Pepcid) 20 mg NGT BID [facility] Last Admin: 10/01/19 18:03 Dose: 20 mg Documented by: Ferrous Sulfate (Feosol) 300 mg GT BID [facility] Last Admin: 10/01/19 10:14 Dose: 300 mg Documented by: Heparin Sodium (Porcine) (Heparin -) 5,000 unit SQ BID [facility] Last Admin: 10/01/19 10:13 Dose: 5,000 unit Documented by: Cefepime HCl 1 gm/ Dextrose 50 mls @ 100 mls/hr IVPB Q8H-IV [facility]; Protocol Last Admin: 10/01/19 17:55 Dose: 100 mls/hr Documented by: Vancomycin HCl (Vancomycin (Pre-Docked)) 1,000 mg in 250 mls @ 166.667 mls/hr IVPB Q12H [facility]; Protocol Last Admin: 10/01/19 16:00 Dose: 166.667 mls/hr Documented by: Lamotrigine (Lamictal -) 50 mg PO BID [facility] Last Admin: 10/01/19 10:13 Dose: 50 mg Documented by: Multivitamins/Minerals (Certavite-Antioxidant Liquid) 15 ml PO DAILY [facility] Last Admin: 10/01/19 10:15 Dose: 15 ml Documented by: Mupirocin (Bactroban Ointment (For Decolonization) -) 1 applic NS BID [facility] Stop: 10/03/19 23:14 Last Admin: 10/01/19 10:15 Dose: 1 applic Documented by: Nystatin (Mycostatin Cream -) 1 applic TP TID [facility] Last Admin: 10/01/19 10:15 Dose: 1 applic Documented by: - Objective Vital Signs: Vital Signs Temperature 97.9 F 10/01/19 20:00 Pulse Rate 86 10/01/19 20:15 Respiratory Rate 15 10/01/19 20:45 Blood Pressure 114/67 10/01/19 20:00 O2 Sat by Pulse Oximetry (%) 99 10/01/19 20:45 Constitutional: Yes: No Distress Cardiovascular: Yes: Regular Rate and Rhythm, S1, S2 Gastrointestinal: Yes: Normal Bowel Sounds, Soft Extremities: Yes: Other (CONTRACTED) Labs: CBC, BMP 10/01/19 05:15 10/01/19 05:15 INR, PTT INR Cancelled 09/28/19 10:55 Assessment/Plan PNEUMONIA UTI HX MULTI-DRUG RESISTANT ORGANISMS AWAIT C/S CONTINUE CEFEPIME/ VANCOMYCIN
[2019-10-01] MEDS: CHLORHEXIDINE GLUCONATE 4% CLEANSER FOR DECOLONIZATION TP SCH (22:45)
[2019-10-02] MEDS ORDERED: CEFEPIME HCL 1 GM VIAL (RESTRICTED TO ID) ONE ×2 (01:34→10:07)
[2019-10-02] MEDS ORDERED: DEXTROSE 5%-WATER - 50 ML IVPB ONE ×4 (01:34→18:08)
[2019-10-02] MEDS: CEFEPIME 1 GM in DEXTROSE 5%-WATER - 50 ML IVPB SCH ×2 (01:40→10:43)
[2019-10-02] MEDS: VANCOMYCIN 1 GRAM (PRE-DOCKED) 1,000 MG/250 ML BAG IVPB SCH (02:27)
[2019-10-02] MEDS: NYSTATIN 100,000 UNIT/GM TOPICAL CREAM 15 GM TUBE TP SCH ×3 (06:37→22:59)
[2019-10-02 07:14] LABS: BLOOD UREA NITROGEN 8.2 mg/dL (7-18); CALCIUM 9.2 mg/dL (8.5-10.1); CREATININE 0.3 mg/dL (0.55-1.3); MAGNESIUM 1.7 mg/dL (1.8-2.4); PHOSPHOROUS 2.2 mg/dL (2.5-4.9); POTASSIUM 3.6 mmol/L (3.5-5.1)
--- NOTE | 2019-10-02 09:09 | PN ---
Progress Note, Physician - Current Medication List Current Medications: Active Medications Acetaminophen (Tylenol Oral Solution -) 650 mg GT Q4H PRN PRN Reason: PAIN 1-3 Albuterol Sulfate (Ventolin 0.083% Nebulizer Soln -) 1 amp NEB RQID [facility] Last Admin: 10/01/19 20:55 Dose: 1 amp Documented by: Amino Acids (Prosource No Carb Liquid Pkt) 30 ml PO BID@0800,1730 [facility] Last Admin: 10/01/19 18:03 Dose: 30 ml Documented by: Chlorhexidine Gluconate (Hibiclens For Decolonization -) 1 applic TP HS [facility] Last Admin: 10/01/19 22:45 Dose: 1 applic Documented by: Clonazepam (Klonopin -) 0.25 mg GT DAILY [facility] Last Admin: 10/01/19 10:14 Dose: 0.5 mg Documented by: Clotrimazole (Lotrisone Cream (Small Tube)) 1 applic TP BID [facility] Last Admin: 10/01/19 22:40 Dose: 1 applic Documented by: Collagenase (Santyl -) 1 applic TP DAILY [facility]; Protocol Last Admin: 10/01/19 10:15 Dose: 1 applic Documented by: Famotidine (Pepcid) 20 mg NGT BID [facility] Last Admin: 10/01/19 22:40 Dose: 20 mg Documented by: Ferrous Sulfate (Feosol) 300 mg GT BID [facility] Last Admin: 10/01/19 22:40 Dose: 300 mg Documented by: Heparin Sodium (Porcine) (Heparin -) 5,000 unit SQ BID [facility] Last Admin: 10/01/19 22:59 Dose: 5,000 unit Documented by: Cefepime HCl 1 gm/ Dextrose 50 mls @ 100 mls/hr IVPB Q8H-IV [facility]; Protocol Last Admin: 10/02/19 01:40 Dose: 100 mls/hr Documented by: Vancomycin HCl (Vancomycin (Pre-Docked)) 1,000 mg in 250 mls @ 166.667 mls/hr IVPB Q12H [facility]; Protocol Last Admin: 10/02/19 02:27 Dose: 166.667 mls/hr Documented by: Lamotrigine (Lamictal -) 50 mg PO BID [facility] Last Admin: 10/01/19 23:00 Dose: 50 mg Documented by: Multivitamins/Minerals (Certavite-Antioxidant Liquid) 15 ml PO DAILY [facility] Last Admin: 10/01/19 10:15 Dose: 15 ml Documented by: Mupirocin (Bactroban Ointment (For Decolonization) -) 1 applic NS BID [facility] Stop: 10/03/19 23:14 Last Admin: 10/01/19 22:40 Dose: 1 applic Documented by: Nystatin (Mycostatin Cream -) 1 applic TP TID [facility] Last Admin: 10/02/19 06:37 Dose: 1 applic Documented by: - Objective Vital Signs: Vital Signs Temperature 98.3 F 10/02/19 06:00 Pulse Rate 94 H 10/02/19 06:00 Respiratory Rate 23 H 10/02/19 06:00 Blood Pressure 95/57 L 10/02/19 06:00 O2 Sat by Pulse Oximetry (%) 100 10/02/19 04:10 Cardiovascular: Yes: S1, S2 Respiratory: Yes: Regular, CTA Bilaterally Gastrointestinal: Yes: Normal Bowel Sounds, Soft, Other (J tube--g tube) Labs: CBC, BMP 10/01/19 05:15 10/02/19 05:15 INR, PTT INR Cancelled 09/28/19 10:55 Assessment/Plan - Problems (1) UTI (urinary tract infection) Assessment/Plan: -UC: Microbiology 09/29/19 16:30 Sputum - Endotrachea Suction/Ventilator Gram Stain - Final 09/28/19 10:55 Blood - Peripheral Venous Blood Culture - Preliminary NO GROWTH OBTAINED AFTER 48 HOURS, INCUBATION TO CONTINUE FOR 3 DAYS. 09/28/19 10:55 Blood - Peripheral Venous Blood Culture - Preliminary NO GROWTH OBTAINED AFTER 48 HOURS, INCUBATION TO CONTINUE FOR 3 DAYS. 09/28/19 11:15 Urine - Urine - Catheterized Urine Culture - Preliminary Proteus Species Chryseobacterium Indologenes 2 Lactose Fermenting Neg Bacilli Pending Organism -Cefipeme and vanco -ID consult -Febrile overnight Problems reviewed: Yes Code(s): N39.0 - URINARY TRACT INFECTION, SITE NOT SPECIFIED (2) Anemia Assessment/Plan: -Previously TAM on 09/15/19 -Start Feosol BID -Venofer if BC negative -repeat Stool OB -Monitor trend -Transfuse only if Hg<7.0 to avoid fluid overload Problems reviewed: Yes Code(s): D64.9 - ANEMIA, UNSPECIFIED Qualifiers: (3) Chronic respiratory failure Assessment/Plan: [facility] Problems reviewed: Yes Code(s): J96.10 - CHRONIC RESPIRATORY FAILURE, UNSP W HYPOXIA OR HYPERCAPNIA Qualifiers: (4) Malfunctioning jejunostomy tube Assessment/Plan: -J tube replaced--feeding resumed -G tube for suctioning Code(s): K94.13 - ENTEROSTOMY MALFUNCTION (5) Pneumonia Assessment/Plan: -HOB elevated>30 degrees -IV Cefepime + Vanco -ID consult -afebrile now -COVID 19 PCR negative -DO NOT USE G-TUBE for feeding -Elevate bed to 30-45 degrees for at least 30 mins after respiratory medicine physician Problems reviewed: Yes Code(s): J18.9 - PNEUMONIA, UNSPECIFIED ORGANISM Qualifiers: Pneumonia type: due to other aerobic Gram-negative bacteria Laterality: bilateral Lung location: lower lobe of lung Qualified Code(s): J15.6 - Pneumonia due to other Gram-negative bacteria (6) Cerebral palsy Problems reviewed: Yes Code(s): G80.9 - CEREBRAL PALSY, UNSPECIFIED Qualifiers: (7) Functional quadriplegia Problems reviewed: Yes Code(s): R53.2 - FUNCTIONAL QUADRIPLEGIA (8) Severe malnutrition Assessment/Plan: -Multivitamin -Prosource BID Code(s): E43 - UNSPECIFIED SEVERE PROTEIN-CALORIE MALNUTRITI
[2019-10-02] MEDS: AMINO ACIDS/PROTEIN HYDROLYS 30 ML LIQUID.PKT PO SCH ×2 (09:43→18:28)
[2019-10-02] MEDS ORDERED: PT OWN MED DRAWER 7, Y5N ONE ×2 (10:26→22:16)
[2019-10-02] MEDS: FERROUS SO4 300 MG/5 ML ORAL SOLN UNIT DOSE CUPS GT SCH ×2 (10:43→22:58)
[2019-10-02] MEDS: MULTIVIT-MINERALS ORAL LIQUID PO SCH (10:43)
[2019-10-02] MEDS: MUPIROCIN 2% TOPICAL OINTMENT FOR DECOLONIZATION NS SCH ×2 (10:43→22:58)
[2019-10-02] MEDS: CLOTRIMAZOLE/BETAMET DIPROP 15 GM TUBE TP SCH ×2 (10:43→22:59)
[2019-10-02] MEDS: HEPARIN NA (PORCINE) 5,000 UNITS/ML 1ML VIAL SQ SCH ×2 (10:43→22:58)
[2019-10-02] MEDS: lamoTRIgine 25 MG TABLET PO SCH ×2 (10:43→22:59)
[2019-10-02] MEDS: clonazePAM 0.5 MG TABLET GT SCH (10:43)
[2019-10-02] MEDS: FAMOTIDINE 40 MG/5 ML ORAL SUSPENSION NGT SCH ×2 (10:44→22:59)
[2019-10-02] MEDS: COLLAGENASE CLOSTRIDIUM HIST. 30 GRAMS TUBE TP SCH (10:44)
[2019-10-02] MEDS: ALBUTEROL SO4 0.083% IH SOL 2.5 MG/3 ML VIAL.NEB. NEB SCH ×4 (13:51→20:15)
--- NOTE | 2019-10-02 14:04 | PN ---
Progress Note, Physician History of Present Illness: AWAKE, NON VERBAL AFEBRILE NO ACUTE DISTRESS WBC WNL SPUTUM CULTURE PSEUDOMONAS URINE C/S MIXED ORGANISMS - Current Medication List Current Medications: Active Medications Acetaminophen (Tylenol Oral Solution -) 650 mg GT Q4H PRN PRN Reason: PAIN 1-3 Albuterol Sulfate (Ventolin 0.083% Nebulizer Soln -) 1 amp NEB RQID [facility] Last Admin: 10/01/19 20:55 Dose: 1 amp Documented by: Amino Acids (Prosource No Carb Liquid Pkt) 30 ml PO BID@0800,1730 [facility] Last Admin: 10/02/19 09:43 Dose: 30 ml Documented by: Chlorhexidine Gluconate (Hibiclens For Decolonization -) 1 applic TP HS [facility] Last Admin: 10/01/19 22:45 Dose: 1 applic Documented by: Clonazepam (Klonopin -) 0.25 mg GT DAILY [facility] Last Admin: 10/02/19 10:43 Dose: 0.25 mg Documented by: Clotrimazole (Lotrisone Cream (Small Tube)) 1 applic TP BID [facility] Last Admin: 10/02/19 10:43 Dose: 1 applic Documented by: Collagenase (Santyl -) 1 applic TP DAILY [facility]; Protocol Last Admin: 10/02/19 10:44 Dose: 1 applic Documented by: Famotidine (Pepcid) 20 mg NGT BID [facility] Last Admin: 10/02/19 10:44 Dose: 20 mg Documented by: Ferrous Sulfate (Feosol) 300 mg GT BID [facility] Last Admin: 10/02/19 10:43 Dose: 300 mg Documented by: Heparin Sodium (Porcine) (Heparin -) 5,000 unit SQ BID [facility] Last Admin: 10/02/19 10:43 Dose: 5,000 unit Documented by: Cefepime HCl 1 gm/ Dextrose 50 mls @ 100 mls/hr IVPB Q8H-IV [facility]; Protocol Last Admin: 10/02/19 10:43 Dose: 100 mls/hr Documented by: Vancomycin HCl (Vancomycin (Pre-Docked)) 1,000 mg in 250 mls @ 166.667 mls/hr IVPB Q12H [facility]; Protocol Last Admin: 10/02/19 02:27 Dose: 166.667 mls/hr Documented by: Lamotrigine (Lamictal -) 50 mg PO BID [facility] Last Admin: 10/02/19 10:43 Dose: 50 mg Documented by: Multivitamins/Minerals (Certavite-Antioxidant Liquid) 15 ml PO DAILY [facility] Last Admin: 10/02/19 10:43 Dose: 15 ml Documented by: Mupirocin (Bactroban Ointment (For Decolonization) -) 1 applic NS BID [facility] Stop: 10/03/19 23:14 Last Admin: 10/02/19 10:43 Dose: 1 applic Documented by: Nystatin (Mycostatin Cream -) 1 applic TP TID [facility] Last Admin: 10/02/19 06:37 Dose: 1 applic Documented by: - Objective Vital Signs: Vital Signs Temperature 98.3 F 10/02/19 06:00 Pulse Rate 90 10/02/19 10:00 Respiratory Rate 27 H 10/02/19 10:39 Blood Pressure 106/84 10/02/19 10:00 O2 Sat by Pulse Oximetry (%) 98 10/02/19 10:39 Constitutional: Yes: No Distress Eyes: Yes: Conjunctiva Clear Cardiovascular: Yes: Regular Rate and Rhythm, S1, S2 Respiratory: Yes: Diminished Gastrointestinal: Yes: Normal Bowel Sounds, Soft. No: Tenderness Extremities: Yes: Other (CONTRACTED) Edema: Yes Labs: CBC, BMP 10/01/19 05:15 10/02/19 05:15 INR, PTT INR Cancelled 09/28/19 10:55 Assessment/Plan PNEUMONIA + SPUTUM C/S PSEUDOMONAS UTI HX MULTI-DRUG RESISTANT ORGANISMS SUBSTITUTE ZOS[facility] CONTACT PRECAUTIONS
--- NOTE | 2019-10-02 14:38 | PN ---
Teaching Attending Note Name of Resident: Kenneth Vitale ATTENDING PHYSICIAN STATEMENT I saw and evaluated the patient. I reviewed the resident's note and discussed the case with the resident. I agree with the resident's findings and plan as documented. SUBJECTIVE: Patient seen and examined in the ICU. Awake on AC Mode of vent. Hemodynamics have been stable. Intake & Output 09/29/19 09/30/19 10/01/19 10/02/19 23:59 23:59 23:59 23:59 Intake Total 2253 2780 4115 810 Output Total 100 1500 900 Balance 2153 1280 3215 810 Weight 103 lb 8 oz 104 lb 107 lb 3.2 oz 109 lb 8 oz Last Vital Signs Temp Pulse Resp BP Pulse Ox 98.3 F 90 27 H 106/84 98 10/02/19 06:00 10/02/19 10:00 10/02/19 10:39 10/02/19 10:00 10/02/19 10:39 Active Medications Acetaminophen (Tylenol Oral Solution -) 650 mg GT Q4H PRN PRN Reason: PAIN 1-3 Albuterol Sulfate (Ventolin 0.083% Nebulizer Soln -) 1 amp NEB RQID [facility] Last Admin: 10/01/19 20:55 Dose: 1 amp Documented by: Amino Acids (Prosource No Carb Liquid Pkt) 30 ml PO BID@0800,1730 [facility] Last Admin: 10/02/19 09:43 Dose: 30 ml Documented by: Chlorhexidine Gluconate (Hibiclens For Decolonization -) 1 applic TP HS [facility] Last Admin: 10/01/19 22:45 Dose: 1 applic Documented by: Clonazepam (Klonopin -) 0.25 mg GT DAILY [facility] Last Admin: 10/02/19 10:43 Dose: 0.25 mg Documented by: Clotrimazole (Lotrisone Cream (Small Tube)) 1 applic TP BID [facility] Last Admin: 10/02/19 10:43 Dose: 1 applic Documented by: Collagenase (Santyl -) 1 applic TP DAILY [facility]; Protocol Last Admin: 10/02/19 10:44 Dose: 1 applic Documented by: Famotidine (Pepcid) 20 mg NGT BID [facility] Last Admin: 10/02/19 10:44 Dose: 20 mg Documented by: Ferrous Sulfate (Feosol) 300 mg GT BID [facility] Last Admin: 10/02/19 10:43 Dose: 300 mg Documented by: Heparin Sodium (Porcine) (Heparin -) 5,000 unit SQ BID [facility] Last Admin: 10/02/19 10:43 Dose: 5,000 unit Documented by: Piperacillin Sod/Tazobactam (Sod 3.375 gm/ Dextrose) 50 mls @ 100 mls/hr IVPB Q8H-IV [facility]; Protocol Lamotrigine (Lamictal -) 50 mg PO BID [facility] Last Admin: 10/02/19 10:43 Dose: 50 mg Documented by: Multivitamins/Minerals (Certavite-Antioxidant Liquid) 15 ml PO DAILY [facility] Last Admin: 10/02/19 10:43 Dose: 15 ml Documented by: Mupirocin (Bactroban Ointment (For Decolonization) -) 1 applic NS BID [facility] Stop: 10/03/19 23:14 Last Admin: 10/02/19 10:43 Dose: 1 applic Documented by: Nystatin (Mycostatin Cream -) 1 applic TP TID [facility] Last Admin: 10/02/19 06:37 Dose: 1 applic Documented by: GENERAL: frail, chronically ill-appearing, Vented HEENT: dry mucous membranes CARDIOVASCULAR: regular rate/rhythm LUNGS/RESPIRATORY: Vented, trach intact, coarse breath sounds bilaterally, no wheezes GI/ABDOMEN: G and J tubes in place, (+) BS, soft : suprapubic cath in place draining MSK/EXTREMITIES: chronic-appearing muscle atrophy, no acute deformity, in pressure boots DERM/SKIN: warm and dry, no pallor, no pathologic-appearing bruising, lower thoracic advance-stage pressure ulcer overlying spine, sacral decubitus ulcer, right hip pressure ulcer NEUROLOGICAL: Lethargic, contracted Laboratory Results - last 24 hr 10/02/19 05:15 Sodium 134 L Potassium 3.6 Chloride 103 Carbon Dioxide 25 Anion Gap 6 L BUN 8.2 Creatinine 0.3 L Est GFR (CKD-EPI)AfAm 158.09 Est GFR (CKD-EPI)NonAf 136.40 Random Glucose 98 Calcium 9.2 Phosphorus 2.2 L Magnesium 1.7 L Problem List - Problems (1) Back wound Code(s): S21.209A - UNSP OPN WND UNSP BK WL OF THORAX W/O PENET THOR CAV, INIT (2) COPD (chronic obstructive pulmonary disease) Code(s): J44.9 - CHRONIC OBSTRUCTIVE PULMONARY DISEASE, UNSPECIFIED Qualifiers: (3) Cerebral palsy Code(s): G80.9 - CEREBRAL PALSY, UNSPECIFIED Qualifiers: (4) Chronic respiratory failure Code(s): J96.10 - CHRONIC RESPIRATORY FAILURE, UNSP W HYPOXIA OR HYPERCAPNIA Qualifiers: (5) Decubital ulcer Code(s): L89.90 - PRESSURE ULCER OF UNSPECIFIED SITE, UNSPECIFIED STAGE (6) Dehydration Code(s): E86.0 - DEHYDRATION (7) Dislodged gastrostomy tube Code(s): Z43.1 - ENCOUNTER FOR ATTENTION TO GASTROSTOMY (8) Parkinson disease Code(s): G20 - PARKINSON'S DISEASE (9) Pleural effusion Code(s): J90 - PLEURAL EFFUSION, NOT ELSEWHERE CLASSIFIED (10) Pneumonia Code(s): J18.9 - PNEUMONIA, UNSPECIFIED ORGANISM Qualifiers: Pneumonia type: due to other aerobic Gram-negative bacteria Laterality: bilateral Lung location: lower lobe of lung Qualified Code(s): J15.6 - Pneumonia due to other Gram-negative bacteria (11) Sepsis Code(s): A41.9 - SEPSIS, UNSPECIFIED ORGANISM (12) UTI (urinary tract infection) Code(s): N39.0 - URINARY TRACT INFECTION, SITE NOT SPECIFIED ASSESSMENT / PLAN: Sepsis due to a source & RLL PNA Chronic respiratory failure Parkinsons Schizophrenia Seizure DO HTN Trach dependent PNA Multiple pressure ulcers History of C-diff colitis PEG and G-J tube ABX per ID IVF AC Mode of vent Follow cultures BD TX VTE prophylaxis Local wound care Vent floor Dr Alexandre
--- NOTE | 2019-10-02 14:51 | PN ---
Physical Exam: SUBJECTIVE: Patient seen and examined at bedside. No events overnight. OBJECTIVE: Vital Signs Period Temp Pulse Resp BP Sys/Gomez Pulse Ox Last 24 Hr 97.9 F-98.7 F 82-95 14-27 87-122/56-84 98-100 GENERAL: The patient is awake, alert, nonverbal at baseline HEAD: Normal with no signs of trauma. NECK: Trachea midline, full range of motion, supple. LUNGS: Breath sounds equal, clear to auscultation bilaterally, no wheezes, no crackles, no accessory muscle use. HEART: Regular rate and rhythm, S1, S2 without murmur, rub or gallop. ABDOMEN: Soft, nontender, nondistended, normoactive bowel sounds, no guarding, no rebound, no hepatosplenomegaly, no masses. EXTREMITIES: 2+ pulses, warm, well-perfused, no edema. NEUROLOGICAL: unable to obtain SKIN: Warm, dry, normal turgor, stage 3 decubitus ulcer iin the middle fo the patient's back. Base is clean, no signs of infection Laboratory Results - last 24 hr 10/02/19 05:15 Sodium 134 L Potassium 3.6 Chloride 103 Carbon Dioxide 25 Anion Gap 6 L BUN 8.2 Creatinine 0.3 L Est GFR (CKD-EPI)AfAm 158.09 Est GFR (CKD-EPI)NonAf 136.40 Random Glucose 98 Calcium 9.2 Phosphorus 2.2 L Magnesium 1.7 L Active Medications Generic Name Dose Route Start Last Admin Trade Name Freq PRN Reason Stop Dose Admin Acetaminophen 650 mg 09/28/19 17:40 Tylenol Oral Solution - GT Q4H PRN PAIN 1-3 Albuterol Sulfate 1 amp 09/28/19 20:00 10/01/19 20:55 Ventolin 0.083% Nebulizer Soln - NEB 1 amp RQID [facility] Administration Amino Acids 30 ml 09/29/19 17:30 10/02/19 09:43 Prosource No Carb Liquid Pkt PO 30 ml BID@0800,1730 [facility] Administration Chlorhexidine Gluconate 1 applic 09/29/19 22:00 10/01/19 22:45 Hibiclens For Decolonization - TP 1 applic HS [facility] Administration Clonazepam 0.25 mg 09/29/19 10:00 10/02/19 10:43 Klonopin - GT 0.25 mg DAILY [facility] Administration Clotrimazole 1 applic 09/29/19 12:00 10/02/19 10:43 Lotrisone Cream (Small Tube) TP 1 applic BID [facility] Administration Collagenase 1 applic 09/29/19 12:30 10/02/19 10:44 Santyl - TP 1 applic DAILY [facility] Administration Protocol Famotidine 20 mg 09/28/19 22:00 10/02/19 10:44 Pepcid NGT 20 mg BID [facility] Administration Ferrous Sulfate 300 mg 09/29/19 11:45 10/02/19 10:43 Feosol GT 300 mg BID [facility] Administration Heparin Sodium (Porcine) 5,000 unit 09/28/19 22:00 10/02/19 10:43 Heparin - SQ 5,000 unit BID [facility] Administration Piperacillin Sod/Tazobactam 50 mls @ 100 mls/hr 10/02/19 14:30 Sod 3.375 gm/ Dextrose IVPB Q8H-IV [facility] Protocol Lamotrigine 50 mg 09/28/19 22:00 10/02/19 10:43 Lamictal - PO 50 mg BID [facility] Administration Multivitamins/Minerals 15 ml 09/29/19 11:45 10/02/19 10:43 Certavite-Antioxidant Liquid PO 15 ml DAILY [facility] Administration Mupirocin 1 applic 09/28/19 23:15 10/02/19 10:43 Bactroban Ointment (For Decolonization) - NS 10/03/19 23:14 1 applic BID [facility] Administration Nystatin 1 applic 09/28/19 22:00 10/02/19 06:37 Mycostatin Cream - TP 1 applic TID [facility] Administration ASSESSMENT/PLAN: 69 y/o male PMH Parkinsons, schizophrenia, seizures, HTN, chronic respiratory failure with tracheostomy, PNA, multiple pressure ulcers (back sacral), C-diff enterocolitis, PEG and G-J tube (placed by IR on 09/14/19 then G tube replaced on 09/22/19 for decompression). He was [facility]IB[facility] from [facility] for clogged J-tubed then found to have urosepsis and likely PNA as well, persistently hypotensive/septic shock in the ED. # Neuro/psych: H/O seizure disorder, CP, Parkinsons, schizophrenia -Ativan prn seizure or agitation -Continue home lamotrigine #Cardiovascular -BP stable off pressors -Monitor BP #Pulm: aspiration PNA RLL consolidation on CT, COPD, chronic trach/vent -PMH aspiration PNA, COPD, chonically vent dependent -now with aspiration PNA again -respiratory status stable #ID: Sepsis due to a source & RLL PNA, COVID-19 NEG -09/28 sputum cx: non-lactose fermenting gnb -09/27 urine cx: proteus species, chryseobacterium indologenes 2, lactose fermenting neg bacilli -09/27 blood cx: no growth -ID consulted -on zosyn -spoke w/ ID regarding potential for DC. There is no PO ABX that covers patient's PNA/UTI. -Patient not safe for DC from ID standpoint. #Gastrointestinal: G-J tube malfunction, PEG tube, ventral hernia -s/p J tube replacement -G tube functional, DO NOT FEED THROUGH G TUBE -patient had aspiration in the past. #Dermatology: lower thoracic and sacral pressure ulcers -Dressing changes -Monitor for infection -Turn/reposition #FEN: -no fluids indicated -Monitor electrolytes -jevity + 30 h2o thru J tube #Prophylaxis: -DVT: HSQ -GI: pepcid 20 bid #Dispo -for transfer to floors. -for d/c back to snf once ID clears the patient. Visit type - Emergency Visit Emergency Visit: Yes ED Registration Date: 09/28/19 Care time: The patient presented to the Emergency Department on the above date and was hospitalized for further evaluation of their emergent condition. - New Patient This patient is new to me today: No - Critical Care Critical Care patient: Yes Total Critical Care Time (in minutes): 35 Critical Care Statement: The care of this patient involved high complexity decision making to prevent further life threatening deterioration of the patient's condition and/or to evaluate & treat vital organ system(s) failure or risk of failure. - Discharge Referral Referred to [facility] No ATTENDING PHYSICIAN STATEMENT I saw and evaluated the patient. I reviewed the resident's note and discussed the case with the resident. I agree with the resident's findings and plan as documented. SUBJECTIVE: OBJECTIVE: ASSESSMENT AND PLAN:
[2019-10-02] MEDS ORDERED: PIPERACILLIN/TAZOBACTAM 3.375 GM VIAL IVPB ONE ×2 (15:19→18:08)
[2019-10-02] MEDS: PIPERACILLIN/TAZOB 3.375 GM 3.375 GM in DEXTROSE 5%-WATER - 50 ML IVPB SCH ×2 (15:33→18:28)
--- NOTE | 2019-10-02 18:07 | PN ---
Progress Note, Physician Chief Complaint: Sepsis History of Present Illness: Seen and examined in the ICU awake on vent via trach on tube feeds having diarrhea - Current Medication List Current Medications: Active Medications Acetaminophen (Tylenol Oral Solution -) 650 mg GT Q4H PRN PRN Reason: PAIN 1-3 Albuterol Sulfate (Ventolin 0.083% Nebulizer Soln -) 1 amp NEB RQID [facility] Last Admin: 10/02/19 15:26 Dose: 1 amp Documented by: Amino Acids (Prosource No Carb Liquid Pkt) 30 ml PO BID@0800,1730 [facility] Last Admin: 10/02/19 09:43 Dose: 30 ml Documented by: Chlorhexidine Gluconate (Hibiclens For Decolonization -) 1 applic TP HS [facility] Last Admin: 10/01/19 22:45 Dose: 1 applic Documented by: Clonazepam (Klonopin -) 0.25 mg GT DAILY [facility] Last Admin: 10/02/19 10:43 Dose: 0.25 mg Documented by: Clotrimazole (Lotrisone Cream (Small Tube)) 1 applic TP BID [facility] Last Admin: 10/02/19 10:43 Dose: 1 applic Documented by: Collagenase (Santyl -) 1 applic TP DAILY [facility]; Protocol Last Admin: 10/02/19 10:44 Dose: 1 applic Documented by: Famotidine (Pepcid) 20 mg NGT BID [facility] Last Admin: 10/02/19 10:44 Dose: 20 mg Documented by: Ferrous Sulfate (Feosol) 300 mg GT BID [facility] Last Admin: 10/02/19 10:43 Dose: 300 mg Documented by: Heparin Sodium (Porcine) (Heparin -) 5,000 unit SQ BID [facility] Last Admin: 10/02/19 10:43 Dose: 5,000 unit Documented by: Piperacillin Sod/Tazobactam (Sod 3.375 gm/ Dextrose) 50 mls @ 100 mls/hr IVPB Q8H-IV [facility]; Protocol Last Admin: 10/02/19 15:33 Dose: 100 mls/hr Documented by: Lamotrigine (Lamictal -) 50 mg PO BID [facility] Last Admin: 10/02/19 10:43 Dose: 50 mg Documented by: Multivitamins/Minerals (Certavite-Antioxidant Liquid) 15 ml PO DAILY [facility] Last Admin: 10/02/19 10:43 Dose: 15 ml Documented by: Mupirocin (Bactroban Ointment (For Decolonization) -) 1 applic NS BID [facility] Stop: 10/03/19 23:14 Last Admin: 10/02/19 10:43 Dose: 1 applic Documented by: Nystatin (Mycostatin Cream -) 1 applic TP TID [facility] Last Admin: 10/02/19 14:00 Dose: 1 applic Documented by: - Objective Vital Signs: Vital Signs Temperature 98.3 F 10/02/19 06:00 Pulse Rate 90 10/02/19 10:00 Respiratory Rate 10/02/19 13:51 Blood Pressure 106/84 10/02/19 10:00 O2 Sat by Pulse Oximetry (%) 100 10/02/19 13:51 Constitutional: Yes: No Distress Edema: No Labs: CBC, BMP 10/01/19 05:15 10/02/19 05:15 INR, PTT INR Cancelled 09/28/19 10:55 Assessment/Plan 69 year old male with hitory of chronic respiratory failure on the vent, COPD, Parkinsons, seizure disorder, cerebral palsy who [facility] feeding [facility] and found to have suspected sepsis/shock and w/o means of enteral nutrition. 1. Sepsis/Shock 2. Dislodged feeding tube 3. Hypoalbuminemia/malnutrition 4. Hypomagnesemia 5. Anemia Renal function stable Tolerating tube feeds trend renal function and electrolytes will follow up as needed Thank you Mat Julian DO
[2019-10-02] MEDS: CHLORHEXIDINE GLUCONATE 4% CLEANSER FOR DECOLONIZATION TP SCH (22:58)
[2019-10-03] MEDS ORDERED: PIPERACILLIN/TAZOBACTAM 3.375 GM VIAL IVPB ONE ×3 (02:17→17:45)
[2019-10-03] MEDS ORDERED: DEXTROSE 5%-WATER - 50 ML IVPB ONE ×3 (02:17→17:45)
[2019-10-03] MEDS: PIPERACILLIN/TAZOB 3.375 GM 3.375 GM in DEXTROSE 5%-WATER - 50 ML IVPB SCH ×3 (02:20→17:48)
[2019-10-03] MEDS: NYSTATIN 100,000 UNIT/GM TOPICAL CREAM 15 GM TUBE TP SCH ×3 (05:29→23:06)
[2019-10-03 07:02] LABS: HEMATOCRIT 26.6 % (35.4-49); HEMOGLOBIN 8.7 GM/dL (11.7-16.9); MCH 28.4 pg (25.7-33.7); MCHC 32.7 g/dl (32.0-35.9); MEAN CELL VOLUME 86.8 fl (80-96); MEAN PLT VOLUME 7.8 fl (7.5-11.1); PLATELET COUNT 434 K/MM3 (134-434); RBC 3.06 M/mm3 (4.00-5.60); RDW 17.8 % (11.9-15.9); WHITE BLOOD COUNT 7.7 K/mm3 (4.0-10.0)
[2019-10-03 07:23] LABS: BLOOD UREA NITROGEN 7.9 mg/dL (7-18); CALCIUM 9.1 mg/dL (8.5-10.1); CREATININE 0.3 mg/dL (0.55-1.3); PHOSPHOROUS 1.5 mg/dL (2.5-4.9); POTASSIUM 3.9 mmol/L (3.5-5.1)
[2019-10-03] MEDS: AMINO ACIDS/PROTEIN HYDROLYS 30 ML LIQUID.PKT PO SCH ×2 (08:35→17:48)
[2019-10-03] MEDS: ALBUTEROL SO4 0.083% IH SOL 2.5 MG/3 ML VIAL.NEB. NEB SCH ×3 (09:17→20:30)
[2019-10-03] MEDS ORDERED: PT OWN MED DRAWER 7, Y5N ONE ×2 (09:19→22:50)
[2019-10-03] MEDS: lamoTRIgine 25 MG TABLET PO SCH ×2 (09:39→23:05)
[2019-10-03] MEDS: FAMOTIDINE 40 MG/5 ML ORAL SUSPENSION NGT SCH ×2 (09:39→23:06)
[2019-10-03] MEDS: HEPARIN NA (PORCINE) 5,000 UNITS/ML 1ML VIAL SQ SCH ×2 (09:40→23:05)
[2019-10-03] MEDS: clonazePAM 0.5 MG TABLET GT SCH (09:40)
[2019-10-03] MEDS: MUPIROCIN 2% TOPICAL OINTMENT FOR DECOLONIZATION NS SCH ×2 (10:01→23:04)
[2019-10-03] MEDS: MULTIVIT-MINERALS ORAL LIQUID PO SCH (10:01)
[2019-10-03] MEDS: FERROUS SO4 300 MG/5 ML ORAL SOLN UNIT DOSE CUPS GT SCH ×2 (10:01→23:19)
[2019-10-03] MEDS: CLOTRIMAZOLE/BETAMET DIPROP 15 GM TUBE TP SCH ×2 (10:02→23:05)
[2019-10-03] MEDS: COLLAGENASE CLOSTRIDIUM HIST. 30 GRAMS TUBE TP SCH (10:03)
--- NOTE | 2019-10-03 10:04 | PN ---
Progress Note, Physician - Current Medication List Current Medications: Active Medications Acetaminophen (Tylenol Oral Solution -) 650 mg GT Q4H PRN PRN Reason: PAIN 1-3 Albuterol Sulfate (Ventolin 0.083% Nebulizer Soln -) 1 amp NEB RQID [facility] Last Admin: 10/03/19 09:17 Dose: 1 amp Documented by: Amino Acids (Prosource No Carb Liquid Pkt) 30 ml PO BID@0800,1730 [facility] Last Admin: 10/03/19 08:35 Dose: 30 ml Documented by: Chlorhexidine Gluconate (Hibiclens For Decolonization -) 1 applic TP HS [facility] Last Admin: 10/02/19 22:58 Dose: 1 applic Documented by: Clonazepam (Klonopin -) 0.25 mg GT DAILY [facility] Last Admin: 10/03/19 09:40 Dose: 0.25 mg Documented by: Clotrimazole (Lotrisone Cream (Small Tube)) 1 applic TP BID [facility] Last Admin: 10/02/19 22:59 Dose: 1 applic Documented by: Collagenase (Santyl -) 1 applic TP DAILY [facility]; Protocol Last Admin: 10/02/19 10:44 Dose: 1 applic Documented by: Famotidine (Pepcid) 20 mg NGT BID [facility] Last Admin: 10/03/19 09:39 Dose: 20 mg Documented by: Ferrous Sulfate (Feosol) 300 mg GT BID [facility] Last Admin: 10/02/19 22:58 Dose: 300 mg Documented by: Heparin Sodium (Porcine) (Heparin -) 5,000 unit SQ BID [facility] Last Admin: 10/03/19 09:40 Dose: 5,000 unit Documented by: Piperacillin Sod/Tazobactam (Sod 3.375 gm/ Dextrose) 50 mls @ 100 mls/hr IVPB Q8H-IV [facility]; Protocol Last Admin: 10/03/19 09:38 Dose: 100 mls/hr Documented by: Lamotrigine (Lamictal -) 50 mg PO BID [facility] Last Admin: 10/03/19 09:39 Dose: 50 mg Documented by: Multivitamins/Minerals (Certavite-Antioxidant Liquid) 15 ml PO DAILY [facility] Last Admin: 10/02/19 10:43 Dose: 15 ml Documented by: Mupirocin (Bactroban Ointment (For Decolonization) -) 1 applic NS BID [facility] Stop: 10/03/19 23:14 Last Admin: 10/02/19 22:58 Dose: 1 applic Documented by: Nystatin (Mycostatin Cream -) 1 applic TP TID [facility] Last Admin: 10/03/19 05:29 Dose: 1 applic Documented by: - Objective Vital Signs: Vital Signs Temperature 97.9 F 10/03/19 06:00 Pulse Rate 90 10/03/19 08:30 Respiratory Rate 24 H 10/03/19 08:30 Blood Pressure 120/71 10/03/19 08:00 O2 Sat by Pulse Oximetry (%) 97 10/03/19 08:30 Cardiovascular: Yes: S1, S2 Respiratory: Yes: Regular, CTA Bilaterally Gastrointestinal: Yes: Normal Bowel Sounds, Soft Edema: No Labs: CBC, BMP 10/03/19 05:30 10/03/19 05:30 INR, PTT INR Cancelled 09/28/19 10:55 Assessment/Plan - Problems (1) UTI (urinary tract infection) Assessment/Plan: -UC: Microbiology 09/28/19 11:15 Urine - Urine - Catheterized Urine Culture - Final Proteus Mirabilus - Esbl Produ Chryseobacterium Indologenes 2 Klebsiella Pneumoniae Group D Strep Or Entero Coccus 09/28/19 10:55 Blood - Peripheral Venous Blood Culture - Preliminary NO GROWTH OBTAINED AFTER 96 HOURS, INCUBATION TO CONTINUE FOR 1 DAYS. 09/28/19 10:55 Blood - Peripheral Venous Blood Culture - Preliminary NO GROWTH OBTAINED AFTER 96 HOURS, INCUBATION TO CONTINUE FOR 1 DAYS. 09/29/19 16:30 Sputum - Endotrachea Suction/Ventilator Gram Stain - Final 09/29/19 16:30 Sputum - Endotrachea Suction/Ventilator Sputum Culture - Final Pseudomonas Aeruginosa -Cefipeme and vanco -ID consult -Febrile overnight Problems reviewed: Yes Code(s): N39.0 - URINARY TRACT INFECTION, SITE NOT SPECIFIED (2) Anemia Assessment/Plan: -Previously TAM on 09/15/19 -Start Feosol BID -Venofer if BC negative -repeat Stool OB -Monitor trend -Transfuse only if Hg<7.0 to avoid fluid overload Problems reviewed: Yes Code(s): D64.9 - ANEMIA, UNSPECIFIED Qualifiers: (3) Chronic respiratory failure Assessment/Plan: -Pulmonary on board -[facility] vent -not a candidate for weaning Problems reviewed: Yes Code(s): J96.10 - CHRONIC RESPIRATORY FAILURE, UNSP W HYPOXIA OR HYPERCAPNIA Qualifiers: (4) Malfunctioning jejunostomy tube Assessment/Plan: -J tube replaced--feeding resumed -G tube for suctioning Code(s): K94.13 - ENTEROSTOMY MALFUNCTION (5) Pneumonia Assessment/Plan: -HOB elevated>30 degrees -IV Cefepime + Vanco -ID consult -afebrile now -COVID 19 PCR negative -DO NOT USE G-TUBE for feeding -Elevate bed to 30-45 degrees for at least 30 mins after medical sales consultant Problems reviewed: Yes Code(s): J18.9 - PNEUMONIA, UNSPECIFIED ORGANISM Qualifiers: Pneumonia type: due to other aerobic Gram-negative bacteria Laterality: bilateral Lung location: lower lobe of lung Qualified Code(s): J15.6 - Pneumonia due to other Gram-negative bacteria (6) Cerebral palsy Problems reviewed: Yes Code(s): G80.9 - CEREBRAL PALSY, UNSPECIFIED Qualifiers: (7) Functional quadriplegia Problems reviewed: Yes Code(s): R53.2 - FUNCTIONAL QUADRIPLEGIA (8) Severe malnutrition Assessment/Plan: -Multivitamin -Prosource BID Code(s): E43 - UNSPECIFIED SEVERE PROTEIN-CALORIE MALNUTRITI
--- NOTE | 2019-10-03 10:38 | PN ---
Physical Exam: SUBJECTIVE: Patient seen and examined at bedside. No events overnight. No change in clinical status OBJECTIVE: Vital Signs Period Temp Pulse Resp BP Sys/Gomez Pulse Ox Last 24 Hr 97.9 F-98.6 F 79-96 13-29 106-126/55-72 97-100 GENERAL: The patient is awake, alert, nonverbal at baseline. HEAD: Normal with no signs of trauma. NECK: Trachea midline, full range of motion, supple. LUNGS: Breath sounds equal, clear to auscultation bilaterally, no wheezes, no crackles, no accessory muscle use. HEART: Regular rate and rhythm, S1, S2 without murmur, rub or gallop. ABDOMEN: Soft, nontender, protuberant, normoactive bowel sounds. Gtube and J tube in place. G tube draining billious fluid. EXTREMITIES: 2+ pulses, warm, well-perfused, no edema. NEUROLOGICAL: unable to obtain as the patient was unable to cooperate PSYCH: Normal mood, normal affect. SKIN: Warm, dry, normal turgor, no rashes or lesions noted Laboratory Results - last 24 hr 10/03/19 10/03/19 05:30 05:30 WBC 7.7 RBC 3.06 L Hgb 8.7 L Hct 26.6 L MCV 86.8 MCH 28.4 MCHC 32.7 RDW 17.8 H Plt Count 434 MPV 7.8 Sodium 136 Potassium 3.9 Chloride 104 Carbon Dioxide 27 Anion Gap 5 L BUN 7.9 Creatinine 0.3 L Est GFR (CKD-EPI)AfAm 158.09 Est GFR (CKD-EPI)NonAf 136.40 Random Glucose 78 Calcium 9.1 Phosphorus 1.5 L Magnesium 2.0 Active Medications Generic Name Dose Route Start Last Admin Trade Name Freq PRN Reason Stop Dose Admin Acetaminophen 650 mg 09/28/19 17:40 Tylenol Oral Solution - GT Q4H PRN PAIN 1-3 Albuterol Sulfate 1 amp 09/28/19 20:00 10/03/19 09:17 Ventolin 0.083% Nebulizer Soln - NEB 1 amp RQID [facility] Administration Amino Acids 30 ml 09/29/19 17:30 10/03/19 08:35 Prosource No Carb Liquid Pkt PO 30 ml BID@0800,1730 [facility] Administration Chlorhexidine Gluconate 1 applic 09/29/19 22:00 10/02/19 22:58 Hibiclens For Decolonization - TP 1 applic HS [facility] Administration Clonazepam 0.25 mg 09/29/19 10:00 10/03/19 09:40 Klonopin - GT 0.25 mg DAILY [facility] Administration Clotrimazole 1 applic 09/29/19 12:00 10/03/19 10:02 Lotrisone Cream (Small Tube) TP 1 applic BID [facility] Administration Collagenase 1 applic 09/29/19 12:30 10/03/19 10:03 Santyl - TP 1 applic DAILY [facility] Administration Protocol Famotidine 20 mg 09/28/19 22:00 10/03/19 09:39 Pepcid NGT 20 mg BID [facility] Administration Ferrous Sulfate 300 mg 09/29/19 11:45 10/03/19 10:01 Feosol GT 300 mg BID [facility] Administration Heparin Sodium (Porcine) 5,000 unit 09/28/19 22:00 10/03/19 09:40 Heparin - SQ 5,000 unit BID [facility] Administration Piperacillin Sod/Tazobactam 50 mls @ 100 mls/hr 10/02/19 14:30 10/03/19 09:38 Sod 3.375 gm/ Dextrose IVPB 100 mls/hr Q8H-IV [facility] Administration Protocol Lamotrigine 50 mg 09/28/19 22:00 10/03/19 09:39 Lamictal - PO 50 mg BID [facility] Administration Multivitamins/Minerals 15 ml 09/29/19 11:45 10/03/19 10:01 Certavite-Antioxidant Liquid PO 15 ml DAILY [facility] Administration Mupirocin 1 applic 09/28/19 23:15 10/03/19 10:01 Bactroban Ointment (For Decolonization) - NS 10/03/19 23:14 1 applic BID [facility] Administration Nystatin 1 applic 09/28/19 22:00 10/03/19 05:29 Mycostatin Cream - TP 1 applic TID [facility] Administration ASSESSMENT/PLAN: 69 y/o male PMH Parkinsons, schizophrenia, seizures, HTN, chronic respiratory failure with tracheostomy, PNA, multiple pressure ulcers (back sacral), C-diff enterocolitis, PEG and G-J tube (placed by IR on 09/14/19 then G tube replaced on 09/22/19 for decompression). He was BIBEMS from [facility] for clogged J-tubed then found to have sepsis 2/2 UTI and likely PNA. # Neuro/psych: H/O seizure disorder, CP, Parkinsons, schizophrenia -Ativan prn seizure or agitation -Continue home lamotrigine #Cardiovascular -BP stable off pressors -Monitor BP #Pulm: aspiration PNA RLL consolidation on CT, COPD, chronic trach/vent -PMH aspiration PNA, COPD, chonically vent dependent -now with aspiration PNA again -respiratory status stable #ID: Sepsis due to a source & RLL PNA, COVID-19 NEG -09/28 sputum cx: non-lactose fermenting gnb -09/27 urine cx: proteus species, chryseobacterium indologenes 2, lactose fermenting neg bacilli -09/27 blood cx: no growth -ID consulted, f/u further reccs -on zosyn #Gastrointestinal: G-J tube malfunction, PEG tube, ventral hernia -s/p J tube replacement -G tube functional, DO NOT FEED THROUGH G TUBE -patient had aspiration in the past. #Dermatology: lower thoracic and sacral pressure ulcers -Dressing changes -Monitor for infection -Turn/reposition #FEN: -no fluids indicated -Monitor electrolytes -jevity + 30 h2o thru J tube #Prophylaxis: -DVT: HSQ -GI: pepcid 20 bid #Dispo -for transfer to floors. -awaiting ID clearance for d/c back to SNF Visit type - Emergency Visit Emergency Visit: Yes ED Registration Date: 09/28/19 Care time: The patient presented to the Emergency Department on the above date and was hospitalized for further evaluation of their emergent condition. - New Patient This patient is new to me today: No - Critical Care Critical Care patient: Yes Total Critical Care Time (in minutes): 35 Critical Care Statement: The care of this patient involved high complexity decision making to prevent further life threatening deterioration of the patient's condition and/or to evaluate & treat vital organ system(s) failure or risk of failure. - Discharge Referral Referred to [facility] No ATTENDING PHYSICIAN STATEMENT I saw and evaluated the patient. I reviewed the resident's note and discussed the case with the resident. I agree with the resident's findings and plan as documented. SUBJECTIVE: OBJECTIVE: ASSESSMENT AND PLAN:
--- NOTE | 2019-10-03 10:40 | PN ---
Progress Note (short form) - Note Progress Note: covering Dr Julian Problems 1. Sepsis/Shock 2. Dislodged feeding tube 3. Hypoalbuminemia/malnutrition 4. Hypomagnesemia 5. Anemia Active Medications Acetaminophen (Tylenol Oral Solution -) 650 mg GT Q4H PRN PRN Reason: PAIN 1-3 Albuterol Sulfate (Ventolin 0.083% Nebulizer Soln -) 1 amp NEB RQID [facility] Last Admin: 10/03/19 09:17 Dose: 1 amp Documented by: Amino Acids (Prosource No Carb Liquid Pkt) 30 ml PO BID@0800,1730 [facility] Last Admin: 10/03/19 08:35 Dose: 30 ml Documented by: Chlorhexidine Gluconate (Hibiclens For Decolonization -) 1 applic TP HS [facility] Last Admin: 10/02/19 22:58 Dose: 1 applic Documented by: Clonazepam (Klonopin -) 0.25 mg GT DAILY [facility] Last Admin: 10/03/19 09:40 Dose: 0.25 mg Documented by: Clotrimazole (Lotrisone Cream (Small Tube)) 1 applic TP BID [facility] Last Admin: 10/03/19 10:02 Dose: 1 applic Documented by: Collagenase (Santyl -) 1 applic TP DAILY [facility]; Protocol Last Admin: 10/03/19 10:03 Dose: 1 applic Documented by: Famotidine (Pepcid) 20 mg NGT BID [facility] Last Admin: 10/03/19 09:39 Dose: 20 mg Documented by: Ferrous Sulfate (Feosol) 300 mg GT BID [facility] Last Admin: 10/03/19 10:01 Dose: 300 mg Documented by: Heparin Sodium (Porcine) (Heparin -) 5,000 unit SQ BID [facility] Last Admin: 10/03/19 09:40 Dose: 5,000 unit Documented by: Piperacillin Sod/Tazobactam (Sod 3.375 gm/ Dextrose) 50 mls @ 100 mls/hr IVPB Q8H-IV [facility]; Protocol Last Admin: 10/03/19 09:38 Dose: 100 mls/hr Documented by: Lamotrigine (Lamictal -) 50 mg PO BID [facility] Last Admin: 10/03/19 09:39 Dose: 50 mg Documented by: Multivitamins/Minerals (Certavite-Antioxidant Liquid) 15 ml PO DAILY [facility] Last Admin: 10/03/19 10:01 Dose: 15 ml Documented by: Mupirocin (Bactroban Ointment (For Decolonization) -) 1 applic NS BID [facility] Stop: 10/03/19 23:14 Last Admin: 10/03/19 10:01 Dose: 1 applic Documented by: Nystatin (Mycostatin Cream -) 1 applic TP TID [facility] Last Admin: 10/03/19 05:29 Dose: 1 applic Documented by: Last Vital Signs Temp Pulse Resp BP Pulse Ox 98.6 F 96 H 20 126/68 97 10/03/19 10:00 10/03/19 10:00 10/03/19 10:00 10/03/19 10:00 10/03/19 08:30 GENERAL: in nad, alert NECK: no jvd LUNGS: clear HEART: clear ABDOMEN: Soft, nontender, nondistended, EXTREMITIES: no edema. CBC, BMP 10/03/19 05:30 10/03/19 05:30 IMP s/p electrolyte disorder Plan continu to monitor labs ensure nutrition
--- NOTE | 2019-10-03 13:23 | PN ---
Teaching Attending Note Name of Resident: Kenneth Vitale ATTENDING PHYSICIAN STATEMENT I saw and evaluated the patient. I reviewed the resident's note and discussed the case with the resident. I agree with the resident's findings and plan as documented. SUBJECTIVE: Patient seen and examined in the ICU. Awake on AC Mode of vent. Hitting himslef intermittently in the face with his gloved restraint. Hemodynamics have been stable. Intake & Output 09/30/19 10/01/19 10/02/19 10/03/19 23:59 23:59 23:59 23:59 Intake Total 2780 4115 860 960 Output Total 1500 900 200 Balance 1280 3215 860 760 Weight 104 lb 107 lb 3.2 oz 109 lb 8 oz 106 lb Last Vital Signs Temp Pulse Resp BP Pulse Ox 98.6 F 89 21 H 118/64 98 10/03/19 10:00 10/03/19 12:00 10/03/19 12:22 10/03/19 12:00 10/03/19 12:22 Active Medications Acetaminophen (Tylenol Oral Solution -) 650 mg GT Q4H PRN PRN Reason: PAIN 1-3 Albuterol Sulfate (Ventolin 0.083% Nebulizer Soln -) 1 amp NEB RQID [facility] Last Admin: 10/03/19 09:17 Dose: 1 amp Documented by: Amino Acids (Prosource No Carb Liquid Pkt) 30 ml PO BID@0800,1730 [facility] Last Admin: 10/03/19 08:35 Dose: 30 ml Documented by: Chlorhexidine Gluconate (Hibiclens For Decolonization -) 1 applic TP HS [facility] Last Admin: 10/02/19 22:58 Dose: 1 applic Documented by: Clonazepam (Klonopin -) 0.25 mg GT DAILY [facility] Last Admin: 10/03/19 09:40 Dose: 0.25 mg Documented by: Clotrimazole (Lotrisone Cream (Small Tube)) 1 applic TP BID [facility] Last Admin: 10/03/19 10:02 Dose: 1 applic Documented by: Collagenase (Santyl -) 1 applic TP DAILY [facility]; Protocol Last Admin: 10/03/19 10:03 Dose: 1 applic Documented by: Famotidine (Pepcid) 20 mg NGT BID [facility] Last Admin: 10/03/19 09:39 Dose: 20 mg Documented by: Ferrous Sulfate (Feosol) 300 mg GT BID [facility] Last Admin: 10/03/19 10:01 Dose: 300 mg Documented by: Heparin Sodium (Porcine) (Heparin -) 5,000 unit SQ BID [facility] Last Admin: 10/03/19 09:40 Dose: 5,000 unit Documented by: Piperacillin Sod/Tazobactam (Sod 3.375 gm/ Dextrose) 50 mls @ 100 mls/hr IVPB Q8H-IV [facility]; Protocol Last Admin: 10/03/19 09:38 Dose: 100 mls/hr Documented by: Lamotrigine (Lamictal -) 50 mg PO BID [facility] Last Admin: 10/03/19 09:39 Dose: 50 mg Documented by: Multivitamins/Minerals (Certavite-Antioxidant Liquid) 15 ml PO DAILY [facility] Last Admin: 10/03/19 10:01 Dose: 15 ml Documented by: Mupirocin (Bactroban Ointment (For Decolonization) -) 1 applic NS BID [facility] Stop: 10/03/19 23:14 Last Admin: 10/03/19 10:01 Dose: 1 applic Documented by: Nystatin (Mycostatin Cream -) 1 applic TP TID [facility] Last Admin: 10/03/19 13:17 Dose: 1 applic Documented by: GENERAL: frail, chronically ill-appearing, Vented HEENT: dry mucous membranes CARDIOVASCULAR: regular rate/rhythm LUNGS/RESPIRATORY: Vented, trach intact, coarse breath sounds bilaterally, no wheezes GI/ABDOMEN: G and J tubes in place, (+) BS, soft : suprapubic cath in place draining MSK/EXTREMITIES: chronic-appearing muscle atrophy, no acute deformity, in pressure boots DERM/SKIN: warm and dry, no pallor, no pathologic-appearing bruising, lower thoracic advance-stage pressure ulcer overlying spine, sacral decubitus ulcer, right hip pressure ulcer NEUROLOGICAL: Lethargic, contracted Laboratory Results - last 24 hr 10/03/19 10/03/19 05:30 05:30 WBC 7.7 RBC 3.06 L Hgb 8.7 L Hct 26.6 L MCV 86.8 MCH 28.4 MCHC 32.7 RDW 17.8 H Plt Count 434 MPV 7.8 Sodium 136 Potassium 3.9 Chloride 104 Carbon Dioxide 27 Anion Gap 5 L BUN 7.9 Creatinine 0.3 L Est GFR (CKD-EPI)AfAm 158.09 Est GFR (CKD-EPI)NonAf 136.40 Random Glucose 78 Calcium 9.1 Phosphorus 1.5 L Magnesium 2.0 Problem List - Problems (1) Back wound Code(s): S21.209A - UNSP OPN WND UNSP BK WL OF THORAX W/O PENET THOR CAV, INIT (2) COPD (chronic obstructive pulmonary disease) Code(s): J44.9 - CHRONIC OBSTRUCTIVE PULMONARY DISEASE, UNSPECIFIED Qualifiers: (3) Cerebral palsy Code(s): G80.9 - CEREBRAL PALSY, UNSPECIFIED Qualifiers: (4) Chronic respiratory failure Code(s): J96.10 - CHRONIC RESPIRATORY FAILURE, UNSP W HYPOXIA OR HYPERCAPNIA Qualifiers: (5) Decubital ulcer Code(s): L89.90 - PRESSURE ULCER OF UNSPECIFIED SITE, UNSPECIFIED STAGE (6) Dehydration Code(s): E86.0 - DEHYDRATION (7) Dislodged gastrostomy tube Code(s): Z43.1 - ENCOUNTER FOR ATTENTION TO GASTROSTOMY (8) Parkinson disease Code(s): G20 - PARKINSON'S DISEASE (9) Pleural effusion Code(s): J90 - PLEURAL EFFUSION, NOT ELSEWHERE CLASSIFIED (10) Pneumonia Code(s): J18.9 - PNEUMONIA, UNSPECIFIED ORGANISM Qualifiers: Pneumonia type: due to other aerobic Gram-negative bacteria Laterality: bilateral Lung location: lower lobe of lung Qualified Code(s): J15.6 - Pneumonia due to other Gram-negative bacteria (11) Sepsis Code(s): A41.9 - SEPSIS, UNSPECIFIED ORGANISM (12) UTI (urinary tract infection) Code(s): N39.0 - URINARY TRACT INFECTION, SITE NOT SPECIFIED ASSESSMENT / PLAN: Sepsis due to a source & RLL PNA Chronic respiratory failure Parkinsons Schizophrenia Seizure DO HTN Trach dependent PNA Multiple pressure ulcers History of C-diff colitis PEG and G-J tube ABX per ID IVF AC Mode of vent Follow cultures BD TX VTE prophylaxis Local wound care Vent floor Dr Alexandre
--- NOTE | 2019-10-03 19:06 | PN ---
Progress Note, Physician History of Present Illness: AWAKE, NON VERBAL AFEBRILE NO ACUTE DISTRESS WBC WNL SPUTUM CULTURE PSEUDOMONAS URINE C/S MIXED ORGANISMS - Current Medication List Current Medications: Active Medications Acetaminophen (Tylenol Oral Solution -) 650 mg GT Q4H PRN PRN Reason: PAIN 1-3 Albuterol Sulfate (Ventolin 0.083% Nebulizer Soln -) 1 amp NEB RQID [facility] Last Admin: 10/03/19 14:59 Dose: 1 amp Documented by: Amino Acids (Prosource No Carb Liquid Pkt) 30 ml PO BID@0800,1730 [facility] Last Admin: 10/03/19 17:48 Dose: 30 ml Documented by: Chlorhexidine Gluconate (Hibiclens For Decolonization -) 1 applic TP HS [facility] Last Admin: 10/02/19 22:58 Dose: 1 applic Documented by: Clonazepam (Klonopin -) 0.25 mg GT DAILY [facility] Last Admin: 10/03/19 09:40 Dose: 0.25 mg Documented by: Clotrimazole (Lotrisone Cream (Small Tube)) 1 applic TP BID [facility] Last Admin: 10/03/19 10:02 Dose: 1 applic Documented by: Collagenase (Santyl -) 1 applic TP DAILY [facility]; Protocol Last Admin: 10/03/19 10:03 Dose: 1 applic Documented by: Famotidine (Pepcid) 20 mg NGT BID [facility] Last Admin: 10/03/19 09:39 Dose: 20 mg Documented by: Ferrous Sulfate (Feosol) 300 mg GT BID [facility] Last Admin: 10/03/19 10:01 Dose: 300 mg Documented by: Heparin Sodium (Porcine) (Heparin -) 5,000 unit SQ BID [facility] Last Admin: 10/03/19 09:40 Dose: 5,000 unit Documented by: Piperacillin Sod/Tazobactam (Sod 3.375 gm/ Dextrose) 50 mls @ 100 mls/hr IVPB Q8H-IV [facility]; Protocol Last Admin: 10/03/19 17:48 Dose: 100 mls/hr Documented by: Lamotrigine (Lamictal -) 50 mg PO BID [facility] Last Admin: 10/03/19 09:39 Dose: 50 mg Documented by: Multivitamins/Minerals (Certavite-Antioxidant Liquid) 15 ml PO DAILY [facility] Last Admin: 10/03/19 10:01 Dose: 15 ml Documented by: Mupirocin (Bactroban Ointment (For Decolonization) -) 1 applic NS BID [facility] Stop: 10/03/19 23:14 Last Admin: 10/03/19 10:01 Dose: 1 applic Documented by: Nystatin (Mycostatin Cream -) 1 applic TP TID [facility] Last Admin: 10/03/19 13:17 Dose: 1 applic Documented by: - Objective Vital Signs: Vital Signs Temperature 99.3 F 10/03/19 18:00 Pulse Rate 89 10/03/19 18:00 Respiratory Rate 15 10/03/19 18:00 Blood Pressure 97/56 L 10/03/19 18:00 O2 Sat by Pulse Oximetry (%) 92 L 10/03/19 15:57 Constitutional: Yes: No Distress, Cachectic Cardiovascular: Yes: Regular Rate and Rhythm, S1, S2 Respiratory: Yes: Diminished Gastrointestinal: Yes: Normal Bowel Sounds, Soft, Other Edema: Yes Labs: CBC, BMP 10/03/19 05:30 10/03/19 05:30 INR, PTT INR Cancelled 09/28/19 10:55 Assessment/Plan PNEUMONIA + SPUTUM C/S PSEUDOMONAS UTI HX MULTI-DRUG RESISTANT ORGANISMS CONTINUE ZOSYN CONTACT PRECAUTIONS
[2019-10-03] MEDS: CHLORHEXIDINE GLUCONATE 4% CLEANSER FOR DECOLONIZATION TP SCH (23:05)
[2019-10-04] MEDS ORDERED: PIPERACILLIN/TAZOBACTAM 3.375 GM VIAL IVPB ONE ×3 (03:25→18:20)
[2019-10-04] MEDS ORDERED: DEXTROSE 5%-WATER - 50 ML IVPB ONE ×3 (03:25→18:21)
[2019-10-04] MEDS: PIPERACILLIN/TAZOB 3.375 GM 3.375 GM in DEXTROSE 5%-WATER - 50 ML IVPB SCH ×3 (03:27→18:35)
--- NOTE | 2019-10-04 05:38 | PN ---
Physical Exam: SUBJECTIVE: Patient seen and examined at bed side in ICU NO acute events over night significant diarrhea cont zosyn Dietion consult OBJECTIVE: Vital Signs Period Temp Pulse Resp BP Sys/Gomez Pulse Ox Last 24 Hr 97.9 F-99.4 F 78-96 15-29 85-126/53-71 92-100 GENERAL: The patient is awake, alert, nonverbal at baseline. HEAD: Normal with no signs of trauma. NECK: Trachea midline, full range of motion, supple. LUNGS: Breath sounds equal, clear to auscultation bilaterally, no wheezes, no crackles, no accessory muscle use. HEART: Regular rate and rhythm, S1, S2 without murmur, rub or gallop. ABDOMEN: Soft, non tender, protuberant, normoactive bowel sounds. Gtube and J tube in place. G tube draining billious fluid. EXTREMITIES: 2+ pulses, warm, well-perfused, no edema. NEUROLOGICAL: unable to obtain as the patient was unable to cooperate PSYCH: Normal mood, normal affect. SKIN: Warm, dry, normal turgor, no rashes or lesions noted Laboratory Results - last 24 hr 10/03/19 10/03/19 05:30 05:30 WBC 7.7 RBC 3.06 L Hgb 8.7 L Hct 26.6 L MCV 86.8 MCH 28.4 MCHC 32.7 RDW 17.8 H Plt Count 434 MPV 7.8 Sodium 136 Potassium 3.9 Chloride 104 Carbon Dioxide 27 Anion Gap 5 L BUN 7.9 Creatinine 0.3 L Est GFR (CKD-EPI)AfAm 158.09 Est GFR (CKD-EPI)NonAf 136.40 Random Glucose 78 Calcium 9.1 Phosphorus 1.5 L Magnesium 2.0 Active Medications Generic Name Dose Route Start Last Admin Trade Name Freq PRN Reason Stop Dose Admin Acetaminophen 650 mg 09/28/19 17:40 Tylenol Oral Solution - GT Q4H PRN PAIN 1-3 Albuterol Sulfate 1 amp 09/28/19 20:00 10/03/19 20:30 Ventolin 0.083% Nebulizer Soln - NEB 1 amp RQID [facility] Administration Amino Acids 30 ml 09/29/19 17:30 10/03/19 17:48 Prosource No Carb Liquid Pkt PO 30 ml BID@0800,1730 [facility] Administration Chlorhexidine Gluconate 1 applic 09/29/19 22:00 10/03/19 23:05 Hibiclens For Decolonization - TP 1 applic HS [facility] Administration Clonazepam 0.25 mg 09/29/19 10:00 10/03/19 09:40 Klonopin - GT 0.25 mg DAILY [facility] Administration Clotrimazole 1 applic 09/29/19 12:00 10/03/19 23:05 Lotrisone Cream (Small Tube) TP 1 applic BID [facility] Administration Collagenase 1 applic 09/29/19 12:30 10/03/19 10:03 Santyl - TP 1 applic DAILY [facility] Administration Protocol Famotidine 20 mg 09/28/19 22:00 10/03/19 23:06 Pepcid NGT 20 mg BID [facility] Administration Ferrous Sulfate 300 mg 09/29/19 11:45 10/03/19 23:19 Feosol GT 300 mg BID [facility] Administration Heparin Sodium (Porcine) 5,000 unit 09/28/19 22:00 10/03/19 23:05 Heparin - SQ 5,000 unit BID [facility] Administration Piperacillin Sod/Tazobactam 50 mls @ 100 mls/hr 10/02/19 14:30 10/04/19 03:27 Sod 3.375 gm/ Dextrose IVPB 100 mls/hr Q8H-IV [facility] Administration Protocol Lamotrigine 50 mg 09/28/19 22:00 10/03/19 23:05 Lamictal - PO 50 mg BID [facility] Administration Multivitamins/Minerals 15 ml 09/29/19 11:45 10/03/19 10:01 Certavite-Antioxidant Liquid PO 15 ml DAILY [facility] Administration Nystatin 1 applic 09/28/19 22:00 10/03/19 23:06 Mycostatin Cream - TP 1 applic TID [facility] Administration CBC WBC 7.7 K/mm3 (4.0-10.0) 10/03/19 05:30 RBC 3.06 M/mm3 (4.00-5.60) L 10/03/19 05:30 Hgb 8.7 GM/dL (11.7-16.9) L 10/03/19 05:30 Hct 26.6 % (35.4-49) L 10/03/19 05:30 MCV 86.8 fl (80-96) 10/03/19 05:30 MCH 28.4 pg (25.7-33.7) 10/03/19 05:30 MCHC 32.7 g/dl (32.0-35.9) 10/03/19 05:30 RDW 17.8 % (11.9-15.9) H 10/03/19 05:30 Plt Count 434 K/MM3 (134-434) 10/03/19 05:30 MPV 7.8 fl (7.5-11.1) 10/03/19 05:30 Absolute Neuts (auto) 7.7 K/mm3 (1.5-8.0) 09/30/19 05:15 Neutrophils % 80.0 % (42.8-82.8) 09/30/19 05:15 Lymphocytes % 13.5 % (8-40) 09/30/19 05:15 Monocytes % 4.3 % (3.8-10.2) 09/30/19 05:15 Eosinophils % 1.7 % (0-4.5) 09/30/19 05:15 Basophils % 0.5 % (0-2.0) 09/30/19 05:15 Nucleated RBC % 0 % (0-0) 09/30/19 05:15 ASSESSMENT/PLAN: 69 y/o male PMH Parkinsons, schizophrenia, seizures, HTN, chronic respiratory failure with tracheostomy, PNA, multiple pressure ulcers (back sacral), C-diff enterocolitis, PEG and G-J tube (placed by IR on 09/14/19 then G tube replaced on 09/22/19 for decompression). He was BIBEMS from [facility] for clogged J-tubed then found to have sepsis 2/2 UTI and likely PNA. # Neuro/psych: H/O seizure disorder, CP, Parkinsons, schizophrenia -Ativan prn seizure or agitation -Continue home lamotrigine #Cardiovascular -BP stable off pressors -Monitor BP #Pulm: aspiration PNA RLL consolidation on CT, COPD, chronic trach/vent -[facility] aspiration PNA, COPD, chonically vent dependent -now with aspiration PNA again -respiratory status stable #ID: Sepsis due to a source & RLL PNA, COVID-19 NEG -09/28 sputum cx: non-lactose fermenting gnb -09/27 urine cx: proteus species, chryseobacterium indologenes 2, lactose fermenting neg bacilli -09/27 blood cx: no growth -ID consulted, f/u further reccs -cont zosyn #Gastrointestinal: G-J tube malfunction, PEG tube, ventral hernia -s/p J tube replacement -G tube functional, DO NOT FEED THROUGH G TUBE -patient had aspiration in the past. #Dermatology: lower thoracic and sacral pressure ulcers -Dressing changes -Monitor for infection -Turn/reposition #FEN: -no fluids indicated -Monitor electrolytes -jevity + 30 h2o thru J tube #Prophylaxis: -DVT: HSQ -GI: pepcid 20 bid #Dispo -for transfer to floors. -awaiting ID clearance for d/c back to SNF Visit type - Emergency Visit Emergency Visit: Yes ED Registration Date: 09/28/19 Care time: The patient presented to the Emergency Department on the above date and was hospitalized for further evaluation of their emergent condition. - New Patient This patient is new to me today: No - Critical Care Critical Care patient: Yes Total Critical Care Time (in minutes): 45 Critical Care Statement: The care of this patient involved high complexity decision making to prevent further life threatening deterioration of the patient's condition and/or to evaluate & treat vital organ system(s) failure or risk of failure. ATTENDING PHYSICIAN STATEMENT I saw and evaluated the patient. I reviewed the resident's note and discussed the case with the resident. I agree with the resident's findings and plan as documented. SUBJECTIVE: OBJECTIVE: ASSESSMENT AND PLAN:
[2019-10-04] MEDS: NYSTATIN 100,000 UNIT/GM TOPICAL CREAM 15 GM TUBE TP SCH ×3 (06:00→21:46)
[2019-10-04] MEDS: ALBUTEROL SO4 0.083% IH SOL 2.5 MG/3 ML VIAL.NEB. NEB SCH ×3 (08:35→16:30)
[2019-10-04] MEDS: AMINO ACIDS/PROTEIN HYDROLYS 30 ML LIQUID.PKT PO SCH ×2 (08:53→18:35)
[2019-10-04] MEDS ORDERED: PT OWN MED DRAWER 7, Y5N ONE ×2 (09:07→21:29)
[2019-10-04] MEDS: HEPARIN NA (PORCINE) 5,000 UNITS/ML 1ML VIAL SQ SCH ×2 (09:08→21:45)
[2019-10-04] MEDS: lamoTRIgine 25 MG TABLET PO SCH ×2 (09:12→21:46)
[2019-10-04] MEDS: clonazePAM 0.5 MG TABLET GT SCH (09:12)
[2019-10-04] MEDS: CLOTRIMAZOLE/BETAMET DIPROP 15 GM TUBE TP SCH ×2 (09:18→21:46)
[2019-10-04] MEDS: FAMOTIDINE 40 MG/5 ML ORAL SUSPENSION NGT SCH ×2 (09:18→21:46)
[2019-10-04] MEDS: COLLAGENASE CLOSTRIDIUM HIST. 30 GRAMS TUBE TP SCH (09:19)
[2019-10-04] MEDS: FERROUS SO4 300 MG/5 ML ORAL SOLN UNIT DOSE CUPS GT SCH ×2 (09:21→21:45)
[2019-10-04] MEDS: MULTIVIT-MINERALS ORAL LIQUID PO SCH (09:24)
--- NOTE | 2019-10-04 10:28 | PN ---
Progress Note, Physician History of Present Illness: AWAKE, NON VERBAL AFEBRILE NO ACUTE DISTRESS WBC WNL SPUTUM CULTURE PSEUDOMONAS URINE C/S MIXED ORGANISMS - Current Medication List Current Medications: Active Medications Acetaminophen (Tylenol Oral Solution -) 650 mg GT Q4H PRN PRN Reason: PAIN 1-3 Albuterol Sulfate (Ventolin 0.083% Nebulizer Soln -) 1 amp NEB RQID [facility] Last Admin: 10/04/19 08:35 Dose: 1 amp Documented by: Amino Acids (Prosource No Carb Liquid Pkt) 30 ml PO BID@0800,1730 [facility] Last Admin: 10/04/19 08:53 Dose: 30 ml Documented by: Chlorhexidine Gluconate (Hibiclens For Decolonization -) 1 applic TP HS [facility] Last Admin: 10/03/19 23:05 Dose: 1 applic Documented by: Clonazepam (Klonopin -) 0.25 mg GT DAILY [facility] Last Admin: 10/04/19 09:12 Dose: 0.25 mg Documented by: Clotrimazole (Lotrisone Cream (Small Tube)) 1 applic TP BID [facility] Last Admin: 10/04/19 09:18 Dose: 1 applic Documented by: Collagenase (Santyl -) 1 applic TP DAILY [facility]; Protocol Last Admin: 10/04/19 09:19 Dose: 1 applic Documented by: Famotidine (Pepcid) 20 mg NGT BID [facility] Last Admin: 10/04/19 09:18 Dose: 20 mg Documented by: Ferrous Sulfate (Feosol) 300 mg GT BID [facility] Last Admin: 10/04/19 09:21 Dose: 300 mg Documented by: Heparin Sodium (Porcine) (Heparin -) 5,000 unit SQ BID [facility] Last Admin: 10/04/19 09:08 Dose: 5,000 unit Documented by: Piperacillin Sod/Tazobactam (Sod 3.375 gm/ Dextrose) 50 mls @ 100 mls/hr IVPB Q8H-IV [facility]; Protocol Last Admin: 10/04/19 09:08 Dose: 100 mls/hr Documented by: Lamotrigine (Lamictal -) 50 mg PO BID [facility] Last Admin: 10/04/19 09:12 Dose: 50 mg Documented by: Multivitamins/Minerals (Certavite-Antioxidant Liquid) 15 ml PO DAILY [facility] Last Admin: 10/04/19 09:24 Dose: 15 ml Documented by: Nystatin (Mycostatin Cream -) 1 applic TP TID [facility] Last Admin: 10/04/19 06:00 Dose: 1 applic Documented by: - Objective Vital Signs: Vital Signs Temperature 98.3 F 10/04/19 10:00 Pulse Rate 87 10/04/19 10:00 Respiratory Rate 18 10/04/19 10:00 Blood Pressure 113/65 10/04/19 10:00 O2 Sat by Pulse Oximetry (%) 97 10/04/19 09:00 Constitutional: Yes: No Distress Eyes: Yes: Conjunctiva Clear Cardiovascular: Yes: Regular Rate and Rhythm, S1, S2 Respiratory: Yes: Diminished Gastrointestinal: Yes: Normal Bowel Sounds, Soft Edema: Yes Labs: CBC, BMP 10/03/19 05:30 10/03/19 05:30 INR, PTT INR Cancelled 09/28/19 10:55 Assessment/Plan PNEUMONIA + SPUTUM C/S PSEUDOMONAS UTI HX MULTI-DRUG RESISTANT ORGANISMS CONTINUE ZOSYN CONTACT PRECAUTIONS
--- NOTE | 2019-10-04 10:55 | PN ---
Progress Note, Physician - Current Medication List Current Medications: Active Medications Acetaminophen (Tylenol Oral Solution -) 650 mg GT Q4H PRN PRN Reason: PAIN 1-3 Albuterol Sulfate (Ventolin 0.083% Nebulizer Soln -) 1 amp NEB RQID [facility] Last Admin: 10/04/19 08:35 Dose: 1 amp Documented by: Amino Acids (Prosource No Carb Liquid Pkt) 30 ml PO BID@0800,1730 [facility] Last Admin: 10/04/19 08:53 Dose: 30 ml Documented by: Chlorhexidine Gluconate (Hibiclens For Decolonization -) 1 applic TP HS [facility] Last Admin: 10/03/19 23:05 Dose: 1 applic Documented by: Clonazepam (Klonopin -) 0.25 mg GT DAILY [facility] Last Admin: 10/04/19 09:12 Dose: 0.25 mg Documented by: Clotrimazole (Lotrisone Cream (Small Tube)) 1 applic TP BID [facility] Last Admin: 10/04/19 09:18 Dose: 1 applic Documented by: Collagenase (Santyl -) 1 applic TP DAILY [facility]; Protocol Last Admin: 10/04/19 09:19 Dose: 1 applic Documented by: Famotidine (Pepcid) 20 mg NGT BID [facility] Last Admin: 10/04/19 09:18 Dose: 20 mg Documented by: Ferrous Sulfate (Feosol) 300 mg GT BID [facility] Last Admin: 10/04/19 09:21 Dose: 300 mg Documented by: Heparin Sodium (Porcine) (Heparin -) 5,000 unit SQ BID [facility] Last Admin: 10/04/19 09:08 Dose: 5,000 unit Documented by: Piperacillin Sod/Tazobactam (Sod 3.375 gm/ Dextrose) 50 mls @ 100 mls/hr IVPB Q8H-IV [facility]; Protocol Last Admin: 10/04/19 09:08 Dose: 100 mls/hr Documented by: Lamotrigine (Lamictal -) 50 mg PO BID [facility] Last Admin: 10/04/19 09:12 Dose: 50 mg Documented by: Multivitamins/Minerals (Certavite-Antioxidant Liquid) 15 ml PO DAILY [facility] Last Admin: 10/04/19 09:24 Dose: 15 ml Documented by: Nystatin (Mycostatin Cream -) 1 applic TP TID [facility] Last Admin: 10/04/19 06:00 Dose: 1 applic Documented by: - Objective Vital Signs: Vital Signs Temperature 98.3 F 10/04/19 10:00 Pulse Rate 87 10/04/19 10:00 Respiratory Rate 18 10/04/19 10:00 Blood Pressure 113/65 10/04/19 10:00 O2 Sat by Pulse Oximetry (%) 97 10/04/19 10:00 Cardiovascular: Yes: S1, S2 Respiratory: Yes: Mechanically Ventilated Gastrointestinal: Yes: Normal Bowel Sounds, Soft Labs: CBC, BMP 10/03/19 05:30 10/03/19 05:30 INR, PTT INR Cancelled 09/28/19 10:55 Assessment/Plan - Problems (1) UTI (urinary tract infection) Assessment/Plan: -UC: Microbiology 09/28/19 11:15 Urine - Urine - Catheterized Urine Culture - Final Proteus Mirabilus - Esbl Produ Chryseobacterium Indologenes 2 Klebsiella Pneumoniae Group D Strep Or Entero Coccus 09/28/19 10:55 Blood - Peripheral Venous Blood Culture - Preliminary NO GROWTH OBTAINED AFTER 96 HOURS, INCUBATION TO CONTINUE FOR 1 DAYS. 09/28/19 10:55 Blood - Peripheral Venous Blood Culture - Preliminary NO GROWTH OBTAINED AFTER 96 HOURS, INCUBATION TO CONTINUE FOR 1 DAYS. 09/29/19 16:30 Sputum - Endotrachea Suction/Ventilator Gram Stain - Final 09/29/19 16:30 Sputum - Endotrachea Suction/Ventilator Sputum Culture - Fin al Pseudomonas Aeruginosa -Cefipeme and vanco -ID consult -Febrile overnight Problems reviewed: Yes Code(s): N39.0 - URINARY TRACT INFECTION, SITE NOT SPECIFIED (2) Anemia Assessment/Plan: -Previously TAM on 09/15/19 -Start Feosol BID -Venofer if BC negative -repeat Stool OB -Monitor trend -Transfuse only if Hg<7.0 to avoid fluid overload Problems reviewed: Yes Code(s): D64.9 - ANEMIA, UNSPECIFIED Qualifiers: (3) Chronic respiratory failure Assessment/Plan: -Pulmonary on board -[facility] vent -not a candidate for weaning Problems reviewed: Yes Code(s): J96.10 - CHRONIC RESPIRATORY FAILURE, UNSP W HYPOXIA OR HYPERCAPNIA Qualifiers: (4) Malfunctioning jejunostomy tube Assessment/Plan: -J tube replaced--feeding resumed -G tube for suctioning Code(s): K94.13 - ENTEROSTOMY MALFUNCTION (5) Pneumonia Assessment/Plan: -HOB elevated>30 degrees -IV Cefepime + Vanco -ID consult -afebrile now -COVID 19 PCR negative -DO NOT USE G-TUBE for feeding -Elevate bed to 30-45 degrees for at least 30 mins after certified medication technician Problems reviewed: Yes Code(s): J18.9 - PNEUMONIA, UNSPECIFIED ORGANISM Qualifiers: Pneumonia type: due to other aerobic Gram-negative bacteria Laterality: bilateral Lung location: lower lobe of lung Qualified Code(s): J15.6 - Pneumonia due to other Gram-negative bacteria (6) Cerebral palsy Problems reviewed: Yes Code(s): G80.9 - CEREBRAL PALSY, UNSPECIFIED Qualifiers: (7) Functional quadriplegia Problems reviewed: Yes Code(s): R53.2 - FUNCTIONAL QUADRIPLEGIA (8) Severe malnutrition Assessment/Plan: -Multivitamin -Prosource BID Code(s): E43 - UNSPECIFIED SEVERE PROTEIN-CALORIE MALNUTRITI
--- NOTE | 2019-10-04 12:38 | PN ---
Teaching Attending Note Name of Resident: Keyshawn Thomas ATTENDING PHYSICIAN STATEMENT I saw and evaluated the patient. I reviewed the resident's note and discussed the case with the resident. I agree with the resident's findings and plan as documented. SUBJECTIVE: Patient seen and examined in the ICU. Awake on AC Mode of vent. Hemodynamics have been stable. Significant diarrhea. Intake & Output 10/01/19 10/02/19 10/03/19 10/04/19 23:59 23:59 23:59 23:59 Intake Total 4115 860 2060 155 Output Total 900 620 Balance 3215 860 1440 155 Weight 107 lb 3.2 oz 109 lb 8 oz 106 lb 105 lb 6.4 oz Last Vital Signs Temp Pulse Resp BP Pulse Ox 98.3 F 87 18 113/65 97 10/04/19 10:00 10/04/19 10:00 10/04/19 10:00 10/04/19 10:00 10/04/19 10:00 Active Medications Acetaminophen (Tylenol Oral Solution -) 650 mg GT Q4H PRN PRN Reason: PAIN 1-3 Albuterol Sulfate (Ventolin 0.083% Nebulizer Soln -) 1 amp NEB RQID [facility] Last Admin: 10/04/19 08:35 Dose: 1 amp Documented by: Amino Acids (Prosource No Carb Liquid Pkt) 30 ml PO BID@0800,1730 [facility] Last Admin: 10/04/19 08:53 Dose: 30 ml Documented by: Chlorhexidine Gluconate (Hibiclens For Decolonization -) 1 applic TP HS [facility] Last Admin: 10/03/19 23:05 Dose: 1 applic Documented by: Clonazepam (Klonopin -) 0.25 mg GT DAILY [facility] Last Admin: 10/04/19 09:12 Dose: 0.25 mg Documented by: Clotrimazole (Lotrisone Cream (Small Tube)) 1 applic TP BID [facility] Last Admin: 10/04/19 09:18 Dose: 1 applic Documented by: Collagenase (Santyl -) 1 applic TP DAILY [facility]; Protocol Last Admin: 10/04/19 09:19 Dose: 1 applic Documented by: Famotidine (Pepcid) 20 mg NGT BID [facility] Last Admin: 10/04/19 09:18 Dose: 20 mg Documented by: Ferrous Sulfate (Feosol) 300 mg GT BID [facility] Last Admin: 10/04/19 09:21 Dose: 300 mg Documented by: Heparin Sodium (Porcine) (Heparin -) 5,000 unit SQ BID [facility] Last Admin: 10/04/19 09:08 Dose: 5,000 unit Documented by: Piperacillin Sod/Tazobactam (Sod 3.375 gm/ Dextrose) 50 mls @ 100 mls/hr IVPB Q8H-IV [facility]; Protocol Last Admin: 10/04/19 09:08 Dose: 100 mls/hr Documented by: Lamotrigine (Lamictal -) 50 mg PO BID [facility] Last Admin: 10/04/19 09:12 Dose: 50 mg Documented by: Multivitamins/Minerals (Certavite-Antioxidant Liquid) 15 ml PO DAILY [facility] Last Admin: 10/04/19 09:24 Dose: 15 ml Documented by: Nystatin (Mycostatin Cream -) 1 applic TP TID [facility] Last Admin: 10/04/19 06:00 Dose: 1 applic Documented by: GENERAL: frail, chronically ill-appearing, Vented HEENT: dry mucous membranes CARDIOVASCULAR: regular rate/rhythm LUNGS/RESPIRATORY: Vented, trach intact, coarse breath sounds bilaterally, no wheezes GI/ABDOMEN: G and J tubes in place, (+) BS, soft : suprapubic cath in place draining MSK/EXTREMITIES: chronic-appearing muscle atrophy, no acute deformity, in pressure boots DERM/SKIN: warm and dry, no pallor, no pathologic-appearing bruising, lower thoracic advance-stage pressure ulcer overlying spine, sacral decubitus ulcer, right hip pressure ulcer NEUROLOGICAL: Lethargic, contracted Problem List - Problems (1) Back wound Code(s): S21.209A - UNSP OPN WND UNSP BK WL OF THORAX W/O PENET THOR CAV, INIT (2) COPD (chronic obstructive pulmonary disease) Code(s): J44.9 - CHRONIC OBSTRUCTIVE PULMONARY DISEASE, UNSPECIFIED Qualifiers: (3) Cerebral palsy Code(s): G80.9 - CEREBRAL PALSY, UNSPECIFIED Qualifiers: (4) Chronic respiratory failure Code(s): J96.10 - CHRONIC RESPIRATORY FAILURE, UNSP W HYPOXIA OR HYPERCAPNIA Qualifiers: (5) Decubital ulcer Code(s): L89.90 - PRESSURE ULCER OF UNSPECIFIED SITE, UNSPECIFIED STAGE (6) Dehydration Code(s): E86.0 - DEHYDRATION (7) Dislodged gastrostomy tube Code(s): Z43.1 - ENCOUNTER FOR ATTENTION TO GASTROSTOMY (8) Parkinson disease Code(s): G20 - PARKINSON'S DISEASE (9) Pleural effusion Code(s): J90 - PLEURAL EFFUSION, NOT ELSEWHERE CLASSIFIED (10) Pneumonia Code(s): J18.9 - PNEUMONIA, UNSPECIFIED ORGANISM Qualifiers: Pneumonia type: due to other aerobic Gram-negative bacteria Laterality: bilateral Lung location: lower lobe of lung Qualified Code(s): J15.6 - Pneumonia due to other Gram-negative bacteria (11) Sepsis Code(s): A41.9 - SEPSIS, UNSPECIFIED ORGANISM (12) UTI (urinary tract infection) Code(s): N39.0 - URINARY TRACT INFECTION, SITE NOT SPECIFIED ASSESSMENT / PLAN: Sepsis due to a source & RLL PNA Chronic respiratory failure Parkinsons Schizophrenia Seizure DO HTN Trach dependent PNA Multiple pressure ulcers History of C-diff colitis PEG and G-J tube ABX per ID AC Mode of vent BD TX VTE prophylaxis Local wound care Dietary F/up for feed recommendations Vent floor Dr Alexandre
--- NOTE | 2019-10-04 13:10 | PN ---
Progress Note (short form) - Note Progress Note: covering Dr Julian Problems 1. Sepsis/Shock 2. Dislodged feeding tube 3. Hypoalbuminemia/malnutrition 4. Hypomagnesemia 5. Anemia Active Medications Acetaminophen (Tylenol Oral Solution -) 650 mg GT Q4H PRN PRN Reason: PAIN 1-3 Albuterol Sulfate (Ventolin 0.083% Nebulizer Soln -) 1 amp NEB RQID [facility] Last Admin: 10/04/19 08:35 Dose: 1 amp Documented by: Amino Acids (Prosource No Carb Liquid Pkt) 30 ml PO BID@0800,1730 [facility] Last Admin: 10/04/19 08:53 Dose: 30 ml Documented by: Chlorhexidine Gluconate (Hibiclens For Decolonization -) 1 applic TP HS [facility] Last Admin: 10/03/19 23:05 Dose: 1 applic Documented by: Clonazepam (Klonopin -) 0.25 mg GT DAILY [facility] Last Admin: 10/04/19 09:12 Dose: 0.25 mg Documented by: Clotrimazole (Lotrisone Cream (Small Tube)) 1 applic TP BID [facility] Last Admin: 10/04/19 09:18 Dose: 1 applic Documented by: Collagenase (Santyl -) 1 applic TP DAILY [facility]; Protocol Last Admin: 10/04/19 09:19 Dose: 1 applic Documented by: Famotidine (Pepcid) 20 mg NGT BID [facility] Last Admin: 10/04/19 09:18 Dose: 20 mg Documented by: Ferrous Sulfate (Feosol) 300 mg GT BID [facility] Last Admin: 10/04/19 09:21 Dose: 300 mg Documented by: Heparin Sodium (Porcine) (Heparin -) 5,000 unit SQ BID [facility] Last Admin: 10/04/19 09:08 Dose: 5,000 unit Documented by: Piperacillin Sod/Tazobactam (Sod 3.375 gm/ Dextrose) 50 mls @ 100 mls/hr IVPB Q8H-IV [facility]; Protocol Last Admin: 10/04/19 09:08 Dose: 100 mls/hr Documented by: Lamotrigine (Lamictal -) 50 mg PO BID [facility] Last Admin: 10/04/19 09:12 Dose: 50 mg Documented by: Multivitamins/Minerals (Certavite-Antioxidant Liquid) 15 ml PO DAILY [facility] Last Admin: 10/04/19 09:24 Dose: 15 ml Documented by: Nystatin (Mycostatin Cream -) 1 applic TP TID [facility] Last Admin: 10/04/19 06:00 Dose: 1 applic Documented by: Last Vital Signs Temp Pulse Resp BP Pulse Ox 98.3 F 84 16 110/61 97 10/04/19 10:00 10/04/19 12:00 10/04/19 12:00 10/04/19 12:00 10/04/19 10:00 GENERAL: in nad, alert NECK: no jvd LUNGS: clear HEART: clear ABDOMEN: Soft, nontender, nondistended, EXTREMITIES: no edema. CBC, BMP 10/03/19 05:30 10/03/19 05:30 IMP s/p electrolyte disorder acute resp failure Plan continu to monitor labs ensure nutrition
[2019-10-04] MEDS: VANCOMYCIN 250 MG/5 ML ORAL SOLUTION PO SCH (18:35)
[2019-10-04] MEDS: CHLORHEXIDINE GLUCONATE 4% CLEANSER FOR DECOLONIZATION TP SCH (21:46)
[2019-10-05] MEDS: VANCOMYCIN 250 MG/5 ML ORAL SOLUTION PO SCH ×4 (00:12→18:02)
[2019-10-05] MEDS ORDERED: DEXTROSE 5%-WATER - 50 ML IVPB ONE ×2 (01:06→10:31)
[2019-10-05] MEDS ORDERED: PIPERACILLIN/TAZOBACTAM 3.375 GM VIAL IVPB ONE ×2 (01:06→10:31)
[2019-10-05] MEDS: PIPERACILLIN/TAZOB 3.375 GM 3.375 GM in DEXTROSE 5%-WATER - 50 ML IVPB SCH ×2 (01:14→11:06)
[2019-10-05 06:39] LABS: BASO % 0.9 % (0-2.0); EOS % 2.4 % (0-4.5); HEMATOCRIT 27.2 % (35.4-49); HEMOGLOBIN 8.9 GM/dL (11.7-16.9); LYMPH % 16.3 % (8-40); MCH 28.4 pg (25.7-33.7); MCHC 32.8 g/dl (32.0-35.9); MEAN CELL VOLUME 86.7 fl (80-96); MEAN PLT VOLUME 7.4 fl (7.5-11.1); MONO % 6.4 % (3.8-10.2); PLATELET COUNT 604 K/MM3 (134-434); RBC 3.13 M/mm3 (4.00-5.60); WHITE BLOOD COUNT 8.2 K/mm3 (4.0-10.0)
[2019-10-05] MEDS: NYSTATIN 100,000 UNIT/GM TOPICAL CREAM 15 GM TUBE TP SCH ×3 (06:39→21:38)
[2019-10-05 07:02] LABS: ALBUMIN 1.6 g/dl (3.4-5.0); BILIRUBIN,TOTAL 0.3 mg/dL (0.2-1); CALCIUM 9.5 mg/dL (8.5-10.1); CREATININE 0.4 mg/dL (0.55-1.3); MAGNESIUM 2.2 mg/dL (1.8-2.4); PHOSPHOROUS 1.6 mg/dL (2.5-4.9); POTASSIUM 4.4 mmol/L (3.5-5.1); TOT PROT 5.8 g/dl (6.4-8.2)
[2019-10-05] MEDS: ALBUTEROL SO4 0.083% IH SOL 2.5 MG/3 ML VIAL.NEB. NEB SCH ×4 (07:50→20:35)
--- NOTE | 2019-10-05 08:39 | PN ---
Physical Exam: SUBJECTIVE: Patient seen and examined at bedside. No events overnight. OBJECTIVE: Vital Signs Period Temp Pulse Resp BP Sys/Gomez Pulse Ox Last 24 Hr 97.9 F-98.5 F 79-91 12-22 105-123/57-74 96-100 GENERAL: The patient is awake, alert, nonverbal at baseline in no acute distress. LUNGS: Breath sounds equal, clear to auscultation bilaterally, no wheezes, no crackles, no accessory muscle use. HEART: Regular rate and rhythm, S1, S2 without murmur, rub or gallop. ABDOMEN: Soft, nontender, nondistended, normoactive bowel sounds. G and J tubes both in place, tube feeds in progress EXTREMITIES: 2+ pulses, warm, well-perfused, no edema. NEUROLOGICAL: Cranial nerves II through X grossly intact. exam limited as patient unable to follow commands. Laboratory Results - last 24 hr 10/05/19 10/05/19 05:20 05:20 WBC 8.2 RBC 3.13 L Hgb 8.9 L Hct 27.2 L MCV 86.7 MCH 28.4 MCHC 32.8 RDW 18.0 H Plt Count 604 H D MPV 7.4 L Absolute Neuts (auto) 6.1 Neutrophils % 74.0 Lymphocytes % 16.3 D Monocytes % 6.4 Eosinophils % 2.4 Basophils % 0.9 Nucleated RBC % 0 Sodium 136 Potassium 4.4 Chloride 102 Carbon Dioxide 26 Anion Gap 8 BUN 13.0 Creatinine 0.4 L Est GFR (CKD-EPI)AfAm 140.46 Est GFR (CKD-EPI)NonAf 121.19 Random Glucose 112 H Calcium 9.5 Phosphorus 1.6 L Magnesium 2.2 Total Bilirubin 0.3 AST 18 ALT 16 Alkaline Phosphatase 125 H Total Protein 5.8 L Albumin 1.6 L Active Medications Generic Name Dose Route Start Last Admin Trade Name Freq PRN Reason Stop Dose Admin Acetaminophen 650 mg 09/28/19 17:40 Tylenol Oral Solution - GT Q4H PRN PAIN 1-3 Albuterol Sulfate 1 amp 09/28/19 20:00 10/04/19 16:30 Ventolin 0.083% Nebulizer Soln - NEB 1 amp RQID [facility] Administration Amino Acids 30 ml 09/29/19 17:30 10/04/19 18:35 Prosource No Carb Liquid Pkt PO 30 ml BID@0800,1730 [facility] Administration Chlorhexidine Gluconate 1 applic 09/29/19 22:00 10/04/19 21:46 Hibiclens For Decolonization - TP 1 applic HS [facility] Administration Clonazepam 0.25 mg 09/29/19 10:00 10/04/19 09:12 Klonopin - GT 0.25 mg DAILY [facility] Administration Clotrimazole 1 applic 09/29/19 12:00 10/04/19 21:46 Lotrisone Cream (Small Tube) TP 1 applic BID [facility] Administration Collagenase 1 applic 09/29/19 12:30 10/04/19 09:19 Santyl - TP 1 applic DAILY [facility] Administration Protocol Famotidine 20 mg 09/28/19 22:00 10/04/19 21:46 Pepcid NGT 20 mg BID [facility] Administration Ferrous Sulfate 300 mg 09/29/19 11:45 10/04/19 21:45 Feosol GT 300 mg BID [facility] Administration Heparin Sodium (Porcine) 5,000 unit 09/28/19 22:00 10/04/19 21:45 Heparin - SQ 5,000 unit BID [facility] Administration Piperacillin Sod/Tazobactam 50 mls @ 100 mls/hr 10/02/19 14:30 10/05/19 01:14 Sod 3.375 gm/ Dextrose IVPB 100 mls/hr Q8H-IV [facility] Administration Protocol Lamotrigine 50 mg 09/28/19 22:00 10/04/19 21:46 Lamictal - PO 50 mg BID [facility] Administration Multivitamins/Minerals 15 ml 09/29/19 11:45 10/04/19 09:24 Certavite-Antioxidant Liquid PO 15 ml DAILY [facility] Administration Nystatin 1 applic 09/28/19 22:00 10/05/19 06:39 Mycostatin Cream - TP 1 applic TID [facility] Administration Vancomycin HCl 125 mg 10/04/19 18:00 10/05/19 06:38 Vancomycin Oral Solution PO 125 ml Q6HPO [facility] Administration ASSESSMENT/PLAN: 69 y/o male PMH Parkinsons, schizophrenia, seizures, HTN, chronic respiratory failure with tracheostomy, PNA, multiple pressure ulcers (back sacral), C-diff enterocolitis, PEG and G-J tube (placed by IR on 09/14/19 then G tube replaced on 09/22/19 for decompression). He was [facility]IB[facility] for clogged J-tubed then found to have sepsis 2/2 UTI and likely PNA. # Neuro/psych: H/O seizure disorder, CP, Parkinsons, schizophrenia -Ativan prn seizure or agitation -Continue home lamotrigine #Cardiovascular -BP stable off pressors -Monitor BP #Pulm: aspiration PNA RLL consolidation on CT, COPD, chronic trach/vent -PMH aspiration PNA, COPD, chonically vent dependent -now with aspiration PNA again -respiratory status stable #ID: Sepsis due to a source & RLL PNA, COVID-19 NEG -09/28 sputum cx: non-lactose fermenting gnb -09/27 urine cx: proteus species, chryseobacterium indologenes 2, lactose fermenting neg bacilli -09/27 blood cx: no growth -ID consulted, f/u further reccs -on zosyn -patient now C.Diff positive -oral Vancomycin treatment initiated #Gastrointestinal: G-J tube malfunction, PEG tube, ventral hernia -s/p J tube replacement -G tube functional, DO NOT FEED THROUGH G TUBE -patient had aspiration in the past. #Dermatology: lower thoracic and sacral pressure ulcers -Dressing changes -Monitor for infection -Turn/reposition #FEN: -no fluids indicated -Monitor electrolytes -jevity + 30 h2o thru J tube #Prophylaxis: -DVT: HSQ -GI: pepcid 20 bid #Lines -Right IJ CVC inserted 09/28 -G-tube in place -J-tube in place, exchanged 09/29 -Rectal tube in place -lozano in place #Dispo -for transfer to floors. -awaiting ID clearance for d/c back to SNF Visit type - Emergency Visit Emergency Visit: Yes ED Registration Date: 09/28/19 Care time: The patient presented to the Emergency Department on the above date and was hospitalized for further evaluation of their emergent condition. - New Patient This patient is new to me today: No - Critical Care Critical Care patient: Yes Total Critical Care Time (in minutes): 35 Critical Care Statement: The care of this patient involved high complexity decision making to prevent further life threatening deterioration of the patient's condition and/or to evaluate & treat vital organ system(s) failure or risk of failure. - Discharge Referral Referred to [facility] No ATTENDING PHYSICIAN STATEMENT I saw and evaluated the patient. I reviewed the resident's note and discussed the case with the resident. I agree with the resident's findings and plan as documented. SUBJECTIVE: OBJECTIVE: ASSESSMENT AND PLAN:
[2019-10-05] MEDS: AMINO ACIDS/PROTEIN HYDROLYS 30 ML LIQUID.PKT PO SCH ×2 (09:04→18:02)
[2019-10-05] MEDS: FERROUS SO4 300 MG/5 ML ORAL SOLN UNIT DOSE CUPS GT SCH ×2 (10:04→21:38)
[2019-10-05] MEDS: HEPARIN NA (PORCINE) 5,000 UNITS/ML 1ML VIAL SQ SCH ×2 (10:04→21:38)
[2019-10-05] MEDS: clonazePAM 0.5 MG TABLET GT SCH (10:05)
[2019-10-05] MEDS: CLOTRIMAZOLE/BETAMET DIPROP 15 GM TUBE TP SCH ×2 (10:05→21:38)
[2019-10-05] MEDS: COLLAGENASE CLOSTRIDIUM HIST. 30 GRAMS TUBE TP SCH (10:05)
[2019-10-05] MEDS: lamoTRIgine 25 MG TABLET PO SCH ×2 (10:05→21:38)
[2019-10-05] MEDS: FAMOTIDINE 40 MG/5 ML ORAL SUSPENSION NGT SCH ×2 (10:05→21:38)
[2019-10-05] MEDS ORDERED: PT OWN MED DRAWER 7, Y5N ONE ×4 (10:31→23:39)
[2019-10-05] MEDS: MULTIVIT-MINERALS ORAL LIQUID PO SCH (10:45)
--- NOTE | 2019-10-05 12:17 | PN ---
Progress Note, Physician Chief Complaint: Sepsis History of Present Illness: Seen and examined in the ICU awake on vent via trach continues to have diarrhea on tube feeds - Current Medication List Current Medications: Active Medications Acetaminophen (Tylenol Oral Solution -) 650 mg GT Q4H PRN PRN Reason: PAIN 1-3 Albuterol Sulfate (Ventolin 0.083% Nebulizer Soln -) 1 amp NEB RQID [facility] Last Admin: 10/05/19 07:50 Dose: 1 amp Documented by: Amino Acids (Prosource No Carb Liquid Pkt) 30 ml PO BID@0800,1730 [facility] Last Admin: 10/05/19 09:04 Dose: 30 ml Documented by: Banana Based Medical Food (Banatrol Plus Powder Packet) 1 packet PO TID [facility] Chlorhexidine Gluconate (Hibiclens For Decolonization -) 1 applic TP HS [facility] Last Admin: 10/04/19 21:46 Dose: 1 applic Documented by: Clonazepam (Klonopin -) 0.25 mg GT DAILY [facility] Last Admin: 10/05/19 10:05 Dose: 0.25 mg Documented by: Clotrimazole (Lotrisone Cream (Small Tube)) 1 applic TP BID [facility] Last Admin: 10/05/19 10:05 Dose: 1 applic Documented by: Collagenase (Santyl -) 1 applic TP DAILY [facility]; Protocol Last Admin: 10/05/19 10:05 Dose: 1 applic Documented by: Famotidine (Pepcid) 20 mg NGT BID [facility] Last Admin: 10/05/19 10:05 Dose: 20 mg Documented by: Ferrous Sulfate (Feosol) 300 mg GT BID [facility] Last Admin: 10/05/19 10:04 Dose: 300 mg Documented by: Heparin Sodium (Porcine) (Heparin -) 5,000 unit SQ BID [facility] Last Admin: 10/05/19 10:04 Dose: 5,000 unit Documented by: Piperacillin Sod/Tazobactam (Sod 3.375 gm/ Dextrose) 50 mls @ 100 mls/hr IVPB Q8H-IV [facility]; Protocol Last Admin: 10/05/19 11:06 Dose: 100 mls/hr Documented by: Lamotrigine (Lamictal -) 50 mg PO BID [facility] Last Admin: 10/05/19 10:05 Dose: 50 mg Documented by: Multivitamins/Minerals (Certavite-Antioxidant Liquid) 15 ml PO DAILY [facility] Last Admin: 10/05/19 10:45 Dose: 15 ml Documented by: Nystatin (Mycostatin Cream -) 1 applic TP TID [facility] Last Admin: 10/05/19 06:39 Dose: 1 applic Documented by: Potassium Phos/Sodium Phos (Phos-Nak Packet -) 1 packet GT TID [facility] Stop: 10/06/19 06:01 Vancomycin HCl (Vancomycin Oral Solution) 125 mg PO Q6HPO [facility] Last Admin: 10/05/19 06:38 Dose: 125 ml Documented by: - Objective Vital Signs: Vital Signs Temperature 97.9 F 10/05/19 06:00 Pulse Rate 87 10/05/19 12:00 Respiratory Rate 16 10/05/19 12:00 Blood Pressure 123/75 10/05/19 12:00 O2 Sat by Pulse Oximetry (%) 95 10/05/19 08:33 Constitutional: Yes: No Distress Extremities: No: Cyanosis Neurological: Yes: Alert Labs: CBC, BMP 10/05/19 05:20 10/05/19 05:20 INR, PTT INR Cancelled 09/28/19 10:55 Assessment/Plan 69 year old male with hitory of chronic respiratory failure on the vent, COPD, Parkinsons, seizure disorder, cerebral palsy who [facility] and found to have suspected sepsis/shock and w/o means of enteral nutrition. 1. Sepsis/Shock 2. Dislodged feeding tube 3. Hypoalbuminemia/malnutrition 4. Hypomagnesemia 5. Anemia Renal function stable Tolerating tube feeds supplement phos via feeding tube trend renal function and electrolytes will follow up as needed Thank you Mat Julian DO
--- NOTE | 2019-10-05 12:45 | PN ---
Teaching Attending Note Name of Resident: Kenneth Vitale ATTENDING PHYSICIAN STATEMENT I saw and evaluated the patient. I reviewed the resident's note and discussed the case with the resident. I agree with the resident's findings and plan as documented. SUBJECTIVE: Pt seen and examined in the ICU. Vented, awake. No fevers recorded. OBJECTIVE: Vital Signs Period Temp Pulse Resp BP Sys/Gomez Pulse Ox Last 24 Hr 97.9 F-98.5 F 79-91 12-22 105-123/57-75 95-100 Intake & Output 10/02/19 10/03/19 10/04/19 10/05/19 23:59 23:59 23:59 23:59 Intake Total 860 2060 1200 575 Output Total 620 1070 450 Balance 860 1440 130 125 Weight 49.668 kg 48.081 kg 47.809 kg 46.266 kg Gen: vented, awake Heart: RRR Lung: decreased breath sounds at the bases Abd: soft, nontender Ext: no edema CBC, BMP 10/05/19 05:20 10/05/19 05:20 Active Medications Acetaminophen (Tylenol Oral Solution -) 650 mg GT Q4H PRN PRN Reason: PAIN 1-3 Albuterol Sulfate (Ventolin 0.083% Nebulizer Soln -) 1 amp NEB RQID [facility] Last Admin: 10/05/19 11:40 Dose: 1 amp Documented by: Amino Acids (Prosource No Carb Liquid Pkt) 30 ml PO BID@0800,1730 [facility] Last Admin: 10/05/19 09:04 Dose: 30 ml Documented by: Banana Based Medical Food (Banatrol Plus Powder Packet) 1 packet PO TID [facility] Chlorhexidine Gluconate (Hibiclens For Decolonization -) 1 applic TP HS [facility] Last Admin: 10/04/19 21:46 Dose: 1 applic Documented by: Clonazepam (Klonopin -) 0.25 mg GT DAILY [facility] Last Admin: 10/05/19 10:05 Dose: 0.25 mg Documented by: Clotrimazole (Lotrisone Cream (Small Tube)) 1 applic TP BID [facility] Last Admin: 10/05/19 10:05 Dose: 1 applic Documented by: Collagenase (Santyl -) 1 applic TP DAILY [facility]; Protocol Last Admin: 10/05/19 10:05 Dose: 1 applic Documented by: Famotidine (Pepcid) 20 mg NGT BID [facility] Last Admin: 10/05/19 10:05 Dose: 20 mg Documented by: Ferrous Sulfate (Feosol) 300 mg GT BID [facility] Last Admin: 10/05/19 10:04 Dose: 300 mg Documented by: Heparin Sodium (Porcine) (Heparin -) 5,000 unit SQ BID [facility] Last Admin: 10/05/19 10:04 Dose: 5,000 unit Documented by: Piperacillin Sod/Tazobactam (Sod 3.375 gm/ Dextrose) 50 mls @ 100 mls/hr IVPB Q8H-IV [facility]; Protocol Last Admin: 10/05/19 11:06 Dose: 100 mls/hr Documented by: Lamotrigine (Lamictal -) 50 mg PO BID [facility] Last Admin: 10/05/19 10:05 Dose: 50 mg Documented by: Multivitamins/Minerals (Certavite-Antioxidant Liquid) 15 ml PO DAILY [facility] Last Admin: 10/05/19 10:45 Dose: 15 ml Documented by: Nystatin (Mycostatin Cream -) 1 applic TP TID [facility] Last Admin: 10/05/19 06:39 Dose: 1 applic Documented by: Potassium Phos/Sodium Phos (Phos-Nak Packet -) 1 packet GT TID [facility] Stop: 10/06/19 06:01 Vancomycin HCl (Vancomycin Oral Solution) 125 mg PO Q6HPO [facility] Last Admin: 10/05/19 06:38 Dose: 125 ml Documented by: ASSESSMENT AND PLAN: C diff Colitis UTI Pneumonia Sepsis Seizure Disorder Schizophrenia HTN Anemia - continue antibiotics - continue volume assist control - enteral feeds - DVT/GI prophylaxis - can monitor on vent floor
--- NOTE | 2019-10-05 13:07 | PN ---
Progress Note, Physician Chief Complaint: UTI Chronic respiratory failure Clogged J tube Pneumonia History of Present Illness: NAD on mechanical vent Has working J tube and G tube now Cdiff + now, on PO Vanco Zosyn for pneumonia - Current Medication List Current Medications: Active Medications Acetaminophen (Tylenol Oral Solution -) 650 mg GT Q4H PRN PRN Reason: PAIN 1-3 Albuterol Sulfate (Ventolin 0.083% Nebulizer Soln -) 1 amp NEB RQID [facility] Last Admin: 10/05/19 11:40 Dose: 1 amp Documented by: Amino Acids (Prosource No Carb Liquid Pkt) 30 ml PO BID@0800,1730 [facility] Last Admin: 10/05/19 09:04 Dose: 30 ml Documented by: Banana Based Medical Food (Banatrol Plus Powder Packet) 1 packet PO TID [facility] Chlorhexidine Gluconate (Hibiclens For Decolonization -) 1 applic TP HS [facility] Last Admin: 10/04/19 21:46 Dose: 1 applic Documented by: Clonazepam (Klonopin -) 0.25 mg GT DAILY [facility] Last Admin: 10/05/19 10:05 Dose: 0.25 mg Documented by: Clotrimazole (Lotrisone Cream (Small Tube)) 1 applic TP BID [facility] Last Admin: 10/05/19 10:05 Dose: 1 applic Documented by: Collagenase (Santyl -) 1 applic TP DAILY [facility]; Protocol Last Admin: 10/05/19 10:05 Dose: 1 applic Documented by: Famotidine (Pepcid) 20 mg NGT BID [facility] Last Admin: 10/05/19 10:05 Dose: 20 mg Documented by: Ferrous Sulfate (Feosol) 300 mg GT BID [facility] Last Admin: 10/05/19 10:04 Dose: 300 mg Documented by: Heparin Sodium (Porcine) (Heparin -) 5,000 unit SQ BID [facility] Last Admin: 10/05/19 10:04 Dose: 5,000 unit Documented by: Piperacillin Sod/Tazobactam (Sod 3.375 gm/ Dextrose) 50 mls @ 100 mls/hr IVPB Q8H-IV [facility]; Protocol Last Admin: 10/05/19 11:06 Dose: 100 mls/hr Documented by: Lamotrigine (Lamictal -) 50 mg PO BID [facility] Last Admin: 10/05/19 10:05 Dose: 50 mg Documented by: Multivitamins/Minerals (Certavite-Antioxidant Liquid) 15 ml PO DAILY [facility] Last Admin: 10/05/19 10:45 Dose: 15 ml Documented by: Nystatin (Mycostatin Cream -) 1 applic TP TID [facility] Last Admin: 10/05/19 06:39 Dose: 1 applic Documented by: Potassium Phos/Sodium Phos (Phos-Nak Packet -) 1 packet GT TID [facility] Stop: 10/06/19 06:01 Vancomycin HCl (Vancomycin Oral Solution) 125 mg PO Q6HPO [facility] Last Admin: 10/05/19 06:38 Dose: 125 ml Documented by: - Objective Vital Signs: Vital Signs Temperature 97.9 F 10/05/19 06:00 Pulse Rate 87 10/05/19 12:00 Respiratory Rate 16 10/05/19 12:00 Blood Pressure 123/75 10/05/19 12:00 O2 Sat by Pulse Oximetry (%) 97 10/05/19 11:50 Constitutional: Yes: No Distress, Calm, Cachectic Cardiovascular: Yes: Regular Rate and Rhythm Respiratory: Yes: Regular, Mechanically Ventilated Gastrointestinal: Yes: Hyperactive Bowel Sounds Genitourinary: Yes: Incontinence Musculoskeletal: Yes: Muscle Weakness Extremities: Yes: Other (generalized atrophy) Edema: No Peripheral Pulses WNL: Yes Neurological: Yes: Pre-Existing Deficit Labs: CBC, BMP 10/05/19 05:20 10/05/19 05:20 INR, PTT INR Cancelled 09/28/19 10:55 Problem List - Problems (1) UTI (urinary tract infection) Assessment/Plan: -UC: Microbiology 10/04/19 12:30 Stool Clostridioides difficile Antigen - Final 10/04/19 12:30 Stool Clostridioides difficile Toxin Assay - Final 09/28/19 10:55 Blood - Peripheral Venous Blood Culture - Final NO GROWTH AFTER 5 DAYS INCUBATION 09/28/19 10:55 Blood - Peripheral Venous Blood Culture - Final NO GROWTH AFTER 5 DAYS INCUBATION 09/28/19 11:15 Urine - Urine - Catheterized Urine Culture - Final Proteus Mirabilus - Esbl Produ Chryseobacterium Indologenes 2 Klebsiella Pneumoniae Group D Strep Or Entero Coccus 09/29/19 16:30 Sputum - Endotrachea Suction/Ventilator Gram Stain - Final 09/29/19 16:30 Sputum - Endotrachea Suction/Ventilator Sputum Culture - Final Pseudomonas Aeruginosa -IV Zosyn -ID consult -Afebrile Problems reviewed: Yes Code(s): N39.0 - URINARY TRACT INFECTION, SITE NOT SPECIFIED (2) Anemia Assessment/Plan: -Previously TAM on 09/15/19 -Started on Feosol BID -Venofer if BC negative -repeat Stool OB -Monitor trend -Transfuse only if Hg<7.0 to avoid fluid overload Problems reviewed: Yes Code(s): D64.9 - ANEMIA, UNSPECIFIED Qualifiers: (3) Chronic respiratory failure Assessment/Plan: -[facility] on [facility] -not a [facility] for we[facility] Problems reviewed: Yes Code(s): J96.10 - CHRONIC RESPIRATORY FAILURE, UNSP W HYPOXIA OR HYPERCAPNIA Qualifiers: (4) Malfunctioning jejunostomy tube Assessment/Plan: -Tolerating feeds through J tube Problems reviewed: Yes Code(s): K94.13 - ENTEROSTOMY MALFUNCTION (5) Pneumonia Assessment/Plan: -HOB elevated>30 degrees -IV Vanco -ID consult -febrile overnight, afebrile now -COVID 19 PCR negative -DO NOT USE G-TUBE for feeding -Elevate bed to 30-45 degrees for at least 30 mins after certified nuclear medicine technologist Problems reviewed: Yes Code(s): J18.9 - PNEUMONIA, UNSPECIFIED ORGANISM Qualifiers: Pneumonia type: due to other aerobic Gram-negative bacteria Laterality: bilateral Lung location: lower lobe of lung Qualified Code(s): J15.6 - Pneumonia due to other Gram-negative bacteria (6) Cerebral palsy Problems reviewed: Yes Code(s): G80.9 - CEREBRAL PALSY, UNSPECIFIED Qualifiers: (7) Functional quadriplegia Problems reviewed: Yes Code(s): R53.2 - FUNCTIONAL QUADRIPLEGIA (8) Severe malnutrition Assessment/Plan: -Multivitamin -Prosource BID Problems reviewed: Yes Code(s): E43 - UNSPECIFIED SEVERE PROTEIN-CALORIE MALNUTRITION (9) C. difficile diarrhea Assessment/Plan: -oral Vancomycin -Rectal tube Problems reviewed: Yes Code(s): A04.72 - ENTEROCOLITIS D/T CLOSTRIDIUM DIFFICILE, NOT SPCF RECUR (10) Sepsis Assessment/Plan: -Cultures: Microbiology 10/04/19 12:30 Stool Clostridioides difficile Antigen - Final 10/04/19 12:30 Stool Clostridioides difficile Toxin Assay - Final 09/28/19 10:55 Blood - Peripheral Venous Blood Culture - Final NO GROWTH AFTER 5 DAYS INCUBATION 09/28/19 10:55 Blood - Peripheral Venous Blood Culture - Final NO GROWTH AFTER 5 DAYS INCUBATION 09/28/19 11:15 Urine - Urine - Catheterized Urine Culture - Final Proteus Mirabilus - Esbl Produ Chryseobacterium Indologenes 2 Klebsiella Pneumoniae Group D Strep Or Entero Coccus 09/29/19 16:30 Sputum - Endotrachea Suction/Ventilator Gram Stain - Final 09/29/19 16:30 Sputum - Endotrachea Suction/Ventilator Sputum Culture - Final Pseudomonas Aeruginosa -on zosyn Problems reviewed: Yes Code(s): A41.9 - SEPSIS, UNSPECIFIED ORGANISM Assessment/Plan See problem list
[2019-10-05] MEDS: BANATROL PLUS POWDER PACKET PO SCH ×2 (15:00→21:38)
[2019-10-05] MEDS: NAPH,MB-DB/K PH,MBDB POWDER PACKET GT SCH ×2 (15:16→21:38)
[2019-10-05] MEDS: CHLORHEXIDINE GLUCONATE 4% CLEANSER FOR DECOLONIZATION TP SCH (21:38)
--- NOTE | 2019-10-06 | PN ---
Progress Note, Physician History of Present Illness: AWAKE, NON VERBAL AFEBRILE NO ACUTE DISTRESS +LOOSE STOOLS C DIFF+ WBC WNL SPUTUM CULTURE PSEUDOMONAS URINE C/S MIXED ORGANISMS - Current Medication List Current Medications: Active Medications Acetaminophen (Tylenol Oral Solution -) 650 mg GT Q4H PRN PRN Reason: PAIN 1-3 Albuterol Sulfate (Ventolin 0.083% Nebulizer Soln -) 1 amp NEB RQID [facility] Last Admin: 10/05/19 20:35 Dose: 1 amp Documented by: Amino Acids (Prosource No Carb Liquid Pkt) 30 ml PO BID@0800,1730 [facility] Last Admin: 10/05/19 18:02 Dose: 30 ml Documented by: Banana Based Medical Food (Banatrol Plus Powder Packet) 1 packet PO TID [facility] Last Admin: 10/05/19 21:38 Dose: 1 packet Documented by: Chlorhexidine Gluconate (Hibiclens For Decolonization -) 1 applic TP HS [facility] Last Admin: 10/05/19 21:38 Dose: 1 applic Documented by: Clonazepam (Klonopin -) 0.25 mg GT DAILY [facility] Last Admin: 10/05/19 10:05 Dose: 0.25 mg Documented by: Clotrimazole (Lotrisone Cream (Small Tube)) 1 applic TP BID [facility] Last Admin: 10/05/19 21:38 Dose: 1 applic Documented by: Collagenase (Santyl -) 1 applic TP DAILY [facility]; Protocol Last Admin: 10/05/19 10:05 Dose: 1 applic Documented by: Famotidine (Pepcid) 20 mg NGT BID [facility] Last Admin: 10/05/19 21:38 Dose: 20 mg Documented by: Ferrous Sulfate (Feosol) 300 mg GT BID [facility] Last Admin: 10/05/19 21:38 Dose: 300 mg Documented by: Heparin Sodium (Porcine) (Heparin -) 5,000 unit SQ BID [facility] Last Admin: 10/05/19 21:38 Dose: 5,000 unit Documented by: Lamotrigine (Lamictal -) 50 mg PO BID [facility] Last Admin: 10/05/19 21:38 Dose: 50 mg Documented by: Multivitamins/Minerals (Certavite-Antioxidant Liquid) 15 ml PO DAILY [facility] Last Admin: 10/05/19 10:45 Dose: 15 ml Documented by: Nystatin (Mycostatin Cream -) 1 applic TP TID [facility] Last Admin: 10/05/19 21:38 Dose: 1 applic Documented by: Potassium Phos/Sodium Phos (Phos-Nak Packet -) 1 packet GT TID [facility] Stop: 10/06/19 06:01 Last Admin: 10/05/19 21:38 Dose: 1 packet Documented by: Vancomycin HCl (Vancomycin Oral Solution) 125 mg PO Q6HPO [facility] Last Admin: 10/05/19 18:02 Dose: 125 mg Documented by: - Objective Vital Signs: Vital Signs Temperature 99.5 F 10/05/19 22:00 Pulse Rate 104 H 10/05/19 22:00 Respiratory Rate 23 H 10/05/19 22:00 Blood Pressure 90/56 L 10/05/19 22:00 O2 Sat by Pulse Oximetry (%) 98 10/05/19 21:00 Constitutional: Yes: No Distress Eyes: Yes: Conjunctiva Clear Cardiovascular: Yes: Regular Rate and Rhythm, S1, S2 Respiratory: Yes: Regular Gastrointestinal: Yes: Normal Bowel Sounds, Soft Extremities: Yes: Other (CONTRACTED) Labs: CBC, BMP 10/05/19 05:20 10/05/19 05:20 INR, PTT INR Cancelled 09/28/19 10:55 Assessment/Plan PNEUMONIA + SPUTUM C/S PSEUDOMONAS UTI HX MULTI-DRUG RESISTANT ORGANISMS + C DIFFICILE DISCONTINUE ZOSYN PO VANCOMYCIN CONTACT PRECAUTIONS
[2019-10-06] MEDS ORDERED: SODIUM CHLORIDE 0.9% 500 ML INFUS.BAG IV ONE (00:15)
[2019-10-06] MEDS ORDERED: NOREPINEPHRINE BITARTRATE 8,000 MCG/500 ML BAG IVPB SCH (00:15)
[2019-10-06] MEDS ORDERED: PT OWN MED DRAWER 7, Y5N ONE ×4 (00:20→22:25)
[2019-10-06] MEDS: VANCOMYCIN 250 MG/5 ML ORAL SOLUTION PO SCH ×5 (00:31→23:00)
[2019-10-06] MEDS: NYSTATIN 100,000 UNIT/GM TOPICAL CREAM 15 GM TUBE TP SCH ×3 (07:00→23:00)
[2019-10-06] MEDS: NAPH,MB-DB/K PH,MBDB POWDER PACKET GT SCH (07:00)
[2019-10-06] MEDS: BANATROL PLUS POWDER PACKET PO SCH ×3 (07:00→23:00)
--- NOTE | 2019-10-06 08:28 | PN ---
Progress Note (short form) - Note Progress Note: HD#9 BRIEF HX 69YOM with CP, Parkinsons, Schizophrenia, seizures, HTN, respiratory failure now trach dependent, PNA, multiple pressure ulcers (back sacral), C-diff enterocolitis, PEG and G-J tube (placed by IR on 09/14/19 then G tube replaced on 09/22/19 for decompression), who was BIBEMS from [facility] for clogged J-tubed then found to have urosepsis and likely PNA as well, persistently hypotensive/septic shock in the ED. C. diff positive. SUBJECTIVE Patient's MAP dropped to low 50s overnight, given 500cc IVF bolus, up to mid- 60s. No pressors started, VSS now. OBJECTIVE Vital Signs Temp 98.9 F 10/06/19 07:00 Pulse 84 10/06/19 07:00 Resp 22 H 10/06/19 07:00 BP 124/69 10/06/19 07:00 Pulse Ox 98 10/05/19 21:00 Intake & Output 10/05/19 10/05/19 10/06/19 11:59 23:59 11:59 Intake Total 575 812 500 Output Total 450 850 600 Balance 125 -38 -100 Weight 46.266 kg Intake: IV 12 lij 12 IVPB 50 50 500 Tube Feeding 315 540 Tube Irrigant 210 210 Output: Gastric Drainage 150 150 Urine 300 700 600 External Catheter 300 700 600 Other: Voiding Method Incontinent Incontinent Bowel Movement Yes: flexiseal Yes: flexiseal Yes: flexiseal Weight Measurement Method Built in [facility] GENERAL: frail, chronically ill-appearing, no obvious distress, appears dehydrated, nonverbal but tracks examiner with eyes, soft mittens on and patient hitting self in face repeatedly with padded mittens but no e/o trauma HEENT: PERRLA, EOMI, dry mucous membranes NECK/BACK: no obvious midline ttp, no spinal stepoff or deformity, no hematoma, full ROM, neck supple CARDIOVASCULAR: regular rate/rhythm, no MGR, strong peripheral pulses, capillary refill 3 seconds, no edema LUNGS/RESPIRATORY: trach in place and hooked up to vent, no increased WOB, coarse breath sounds bilaterally worse on the right side, decreased breath sounds on right compared with left, bilateral mild expiratory wheezes GI/ABDOMEN: G and J tubes in place, rectal tube in place, symmetric [id number] , normoactive BS, soft, no obvious ttp, no midline pulsatile masses : Marav[place] in place MSK/EXTREMITIES: chronic-appearing muscle atrophy, no acute deformity, in pressure boots DERM/SKIN: warm and dry, no pallor, no pathologic-appearing bruising, lower thoracic advance-stage pressure ulcer overlying spine, sacral decubitus ulcer, right hip pressure ulcer NEUROLOGICAL: eyes open and tracking examiner, CN II-XII grossly intact, no facial droop, leaning to right side, contracted #Lines: Right IJ CVC inserted 09/28 Tubes: PEG and G-J tube, trach collar Drains: Marav[place], Rectal tube Drips: None Anti Infectives: PO vancomycin CBCD WBC 8.2 K/mm3 (4.0-10.0) 10/05/19 05:20 RBC 3.13 M/mm3 (4.00-5.60) L 10/05/19 05:20 Hgb 8.9 GM/dL (11.7-16.9) L 10/05/19 05:20 Hct 27.2 % (35.4-49) L 10/05/19 05:20 MCV 86.7 fl (80-96) 10/05/19 05:20 MCHC 32.8 g/dl (32.0-35.9) 10/05/19 05:20 RDW 18.0 % (11.9-15.9) H 10/05/19 05:20 Plt Count 604 K/MM3 (134-434) H D 10/05/19 05:20 MPV 7.4 fl (7.5-11.1) L 10/05/19 05:20 CMP Sodium 136 mmol/L (136-145) 10/05/19 05:20 Potassium 4.4 mmol/L (3.5-5.1) 10/05/19 05:20 Chloride 102 mmol/L (98-107) 10/05/19 05:20 Carbon Dioxide 26 mmol/L (21-32) 10/05/19 05:20 Anion Gap 8 MMOL/L (8-16) 10/05/19 05:20 BUN 13.0 mg/dL (7-18) 10/05/19 05:20 Creatinine 0.4 mg/dL (0.55-1.3) L 10/05/19 05:20 Random Glucose 112 mg/dL (74-106) H 10/05/19 05:20 Calcium 9.5 mg/dL (8.5-10.1) 10/05/19 05:20 Total Bilirubin 0.3 mg/dL (0.2-1) 10/05/19 05:20 AST 18 U/L (15-37) 10/05/19 05:20 ALT 16 U/L (13-61) 10/05/19 05:20 Alkaline Phosphatase 125 U/L (45-117) H 10/05/19 05:20 Total Protein 5.8 g/dl (6.4-8.2) L 10/05/19 05:20 Albumin 1.6 g/dl (3.4-5.0) L 10/05/19 05:20 CARDIAC ENZYMES Troponin I 0.02 ng/ml (0.00-0.05) 09/28/19 10:17 10/04/19 12:30 Stool Clostridioides difficile Antigen - Final 10/04/19 12:30 Stool Clostridioides difficile Toxin Assay - Final 09/28/19 10:55 Blood - Peripheral Venous Blood Culture - Final NO GROWTH AFTER 5 DAYS INCUBATION 09/28/19 10:55 Blood - Peripheral Venous Blood Culture - Final NO GROWTH AFTER 5 DAYS INCUBATION 09/28/19 11:15 Urine - Urine - Catheterized Urine Culture - Final Proteus Mirabilus - Esbl Produ Chryseobacterium Indologenes 2 Klebsiella Pneumoniae Group D Strep Or Entero Coccus 09/29/19 16:30 Sputum - Endotrachea Suction/Ventilator Gram Stain - Final 09/29/19 16:30 Sputum - Endotrachea Suction/Ventilator Sputum Culture - Final Pseudomonas Aeruginosa ASSESSMENT / PLAN: 69YOM with CP, Parkinsons, Schizophrenia, seizures, HTN, respiratory failure now trach dependent, PNA, multiple pressure ulcers (back sacral), C-diff enterocolitis, PEG and G-J tube (placed by IR on 09/14/19 then G tube replaced on 09/22/19 for decompression), who was BIBEMS from [facility] for clogged J-tubed then found to have urosepsis and likely PNA as well, persistently hypotensive/septic shock in the ED. C. diff positive. Neuro/Psych: seizure disorder (one sz in ED yesterday), CP, Parkinsons, schizophrenia -Monitor -Ativan prn seizure or agitation (careful with BP) -Continue home lamotrigine Endocrine: no concerns -Monitor Cardiovascular: hypotension, intermittent, given gentle IVF bolus overnight and was responsive -IVF as below -No pressors for now -Monitor BP Pulm/Resp: aspiration PNA RLL consolidation on CT, COPD, chronic trach/vent -Pulm consulted, appreciate recs -DuoNebs as needed prn wheezing -HOB at ~40 deg aspiration precautions -Suctioning (+deep) Gastrointestinal: G-J tube malfunction (replaced & resolved), PEG tube, ventral hernia -Tube feeds via J tube per Dietary -Do not feed through PEG tube Genitourinary: complicated UTI s/p antibiotic course completed -Maravilla -Monitor UOP Hematologic: chronic iron deficiency anemia, thrombocytosis -Monitor Infectious Disease: C. diff diarrhea, complicated UTI, and PNA likely aspiration, COVID-19 negative, completed Zosyn course -Continue vancomycin PO -ID consulted, appreciate recs Musculoskeletal: CP, chronic deconditioning -Monitor Dermatology: lower thoracic and sacral pressure ulcers -Dressing changes -Monitor for infection -Turn/reposition Prophylaxis: - DVT: HSQ - GI: Continue home famotidine, tube feeds per dietary Dispo: Transfer to med/surg, awaiting ID clearance to return to [place]. Linda Eaton MD ICU Consult Service Problem List - Problems (1) Back wound Code(s): S21.209A - UNSP OPN WND UNSP BK WL OF THORAX W/O PENET THOR CAV, INIT (2) COPD (chronic obstructive pulmonary disease) Code(s): J44.9 - CHRONIC OBSTRUCTIVE PULMONARY DISEASE, UNSPECIFIED Qualifiers: (3) Cerebral palsy Code(s): G80.9 - CEREBRAL PALSY, UNSPECIFIED Qualifiers: (4) Chronic respiratory failure Code(s): J96.10 - CHRONIC RESPIRATORY FAILURE, UNSP W HYPOXIA OR HYPERCAPNIA Qualifiers: (5) Decubital ulcer Code(s): L89.90 - PRESSURE ULCER OF UNSPECIFIED SITE, UNSPECIFIED STAGE (6) Dehydration Code(s): E86.0 - DEHYDRATION (7) Dislodged gastrostomy tube Code(s): Z43.1 - ENCOUNTER FOR ATTENTION TO GASTROSTOMY (8) Parkinson disease Code(s): G20 - PARKINSON'S DISEASE (9) Pleural effusion Code(s): J90 - PLEURAL EFFUSION, NOT ELSEWHERE CLASSIFIED (10) Pneumonia Code(s): J18.9 - PNEUMONIA, UNSPECIFIED ORGANISM Qualifiers: Pneumonia type: due to other aerobic Gram-negative bacteria Laterality: bilateral Lung location: lower lobe of lung Qualified Code(s): J15.6 - Pneumonia due to other Gram-negative bacteria (11) Sepsis Code(s): A41.9 - SEPSIS, UNSPECIFIED ORGANISM (12) UTI (urinary tract infection) Code(s): N39.0 - URINARY TRACT INFECTION, SITE NOT SPECIFIED
[2019-10-06] MEDS: ALBUTEROL SO4 0.083% IH SOL 2.5 MG/3 ML VIAL.NEB. NEB SCH ×4 (08:30→20:22)
[2019-10-06] MEDS: AMINO ACIDS/PROTEIN HYDROLYS 30 ML LIQUID.PKT PO SCH ×2 (09:09→17:26)
[2019-10-06] MEDS: HEPARIN NA (PORCINE) 5,000 UNITS/ML 1ML VIAL SQ SCH ×2 (09:36→23:01)
[2019-10-06] MEDS: FERROUS SO4 300 MG/5 ML ORAL SOLN UNIT DOSE CUPS GT SCH ×2 (09:36→23:02)
[2019-10-06] MEDS: MULTIVIT-MINERALS ORAL LIQUID PO SCH (09:36)
[2019-10-06] MEDS: clonazePAM 0.5 MG TABLET GT SCH (09:37)
[2019-10-06] MEDS: lamoTRIgine 25 MG TABLET PO SCH ×2 (09:37→23:01)
[2019-10-06] MEDS: FAMOTIDINE 40 MG/5 ML ORAL SUSPENSION NGT SCH ×2 (09:38→23:00)
[2019-10-06] MEDS: CLOTRIMAZOLE/BETAMET DIPROP 15 GM TUBE TP SCH ×2 (09:38→23:01)
[2019-10-06] MEDS: COLLAGENASE CLOSTRIDIUM HIST. 30 GRAMS TUBE TP SCH (09:38)
--- NOTE | 2019-10-06 11:33 | PN ---
Teaching Attending Note Name of Resident: Linda Chandraean ATTENDING PHYSICIAN STATEMENT I saw and evaluated the patient. I reviewed the resident's note and discussed the case with the resident. I agree with the resident's findings and plan as documented. SUBJECTIVE: Pt seen and examined in the ICU. Vented, awake. No fevers recorded. Episode of hypotension overnight but responded to IVF bolus. OBJECTIVE: Vital Signs Period Temp Pulse Resp BP Sys/Gomez Pulse Ox Last 24 Hr 98.7 F-99.5 F 84-109 14-28 81-124/41-75 95-100 Intake & Output 10/03/19 10/04/19 10/05/19 10/06/19 23:59 23:59 23:59 23:59 Intake Total 2060 1200 1387 500 Output Total 620 1070 1300 600 Balance 1440 130 87 -100 Weight 48.081 kg 47.809 kg 46.266 kg Gen: vented, awake Heart: RRR Lung: decreased breath sounds at the bases Abd: soft, nontender Ext: no edema CBC, BMP 10/05/19 05:20 10/05/19 05:20 Active Medications Acetaminophen (Tylenol Oral Solution -) 650 mg GT Q4H PRN PRN Reason: PAIN 1-3 Albuterol Sulfate (Ventolin 0.083% Nebulizer Soln -) 1 amp NEB RQID [facility] Last Admin: 10/06/19 08:30 Dose: 1 amp Documented by: Amino Acids (Prosource No Carb Liquid Pkt) 30 ml PO BID@0800,1730 [facility] Last Admin: 10/06/19 09:09 Dose: 30 ml Documented by: Banana Based Medical Food (Banatrol Plus Powder Packet) 1 packet PO TID [facility] Last Admin: 10/06/19 07:00 Dose: 1 packet Documented by: Chlorhexidine Gluconate (Hibiclens For Decolonization -) 1 applic TP HS [facility] Last Admin: 10/05/19 21:38 Dose: 1 applic Documented by: Clonazepam (Klonopin -) 0.25 mg GT DAILY [facility] Last Admin: 10/06/19 09:37 Dose: 0.25 mg Documented by: Clotrimazole (Lotrisone Cream (Small Tube)) 1 applic TP BID [facility] Last Admin: 10/06/19 09:38 Dose: 1 applic Documented by: Collagenase (Santyl -) 1 applic TP DAILY [facility]; Protocol Last Admin: 10/06/19 09:38 Dose: 1 applic Documented by: Famotidine (Pepcid) 20 mg NGT BID [facility] Last Admin: 10/06/19 09:38 Dose: 20 mg Documented by: Ferrous Sulfate (Feosol) 300 mg GT BID [facility] Last Admin: 10/06/19 09:36 Dose: 300 mg Documented by: Heparin Sodium (Porcine) (Heparin -) 5,000 unit SQ BID [facility] Last Admin: 10/06/19 09:36 Dose: 5,000 unit Documented by: Lamotrigine (Lamictal -) 50 mg PO BID [facility] Last Admin: 10/06/19 09:37 Dose: 50 mg Documented by: Multivitamins/Minerals (Certavite-Antioxidant Liquid) 15 ml PO DAILY [facility] Last Admin: 10/06/19 09:36 Dose: 15 ml Documented by: Nystatin (Mycostatin Cream -) 1 applic TP TID [facility] Last Admin: 10/06/19 07:00 Dose: 1 applic Documented by: Vancomycin HCl (Vancomycin Oral Solution) 125 mg PO Q6HPO [facility] Last Admin: 10/06/19 07:00 Dose: 125 mg Documented by: ASSESSMENT AND PLAN: C diff Colitis UTI Pneumonia Sepsis Seizure Disorder Schizophrenia HTN Anemia - continue antibiotics per ID - continue volume assist control - enteral feeds - DVT/GI prophylaxis - can monitor on vent floor
--- NOTE | 2019-10-06 13:26 | PN ---
Progress Note, Physician Chief Complaint: UTI Chronic respiratory failure Clogged J tube Pneumonia History of Present Illness: NAD on mechanical vent Has working J tube and G tube now Cdiff + now, on PO Vanco Zosyn for pneumonia - Current Medication List Current Medications: Active Medications Acetaminophen (Tylenol Oral Solution -) 650 mg GT Q4H PRN PRN Reason: PAIN 1-3 Albuterol Sulfate (Ventolin 0.083% Nebulizer Soln -) 1 amp NEB RQID [facility] Last Admin: 10/06/19 12:00 Dose: 1 amp Documented by: Amino Acids (Prosource No Carb Liquid Pkt) 30 ml PO BID@0800,1730 [facility] Last Admin: 10/06/19 09:09 Dose: 30 ml Documented by: Banana Based Medical Food (Banatrol Plus Powder Packet) 1 packet PO TID [facility] Last Admin: 10/06/19 07:00 Dose: 1 packet Documented by: Chlorhexidine Gluconate (Hibiclens For Decolonization -) 1 applic TP HS [facility] Last Admin: 10/05/19 21:38 Dose: 1 applic Documented by: Clonazepam (Klonopin -) 0.25 mg GT DAILY [facility] Last Admin: 10/06/19 09:37 Dose: 0.25 mg Documented by: Clotrimazole (Lotrisone Cream (Small Tube)) 1 applic TP BID [facility] Last Admin: 10/06/19 09:38 Dose: 1 applic Documented by: Collagenase (Santyl -) 1 applic TP DAILY [facility]; Protocol Last Admin: 10/06/19 09:38 Dose: 1 applic Documented by: Famotidine (Pepcid) 20 mg NGT BID [facility] Last Admin: 10/06/19 09:38 Dose: 20 mg Documented by: Ferrous Sulfate (Feosol) 300 mg GT BID [facility] Last Admin: 10/06/19 09:36 Dose: 300 mg Documented by: Heparin Sodium (Porcine) (Heparin -) 5,000 unit SQ BID [facility] Last Admin: 10/06/19 09:36 Dose: 5,000 unit Documented by: Lamotrigine (Lamictal -) 50 mg PO BID [facility] Last Admin: 10/06/19 09:37 Dose: 50 mg Documented by: Multivitamins/Minerals (Certavite-Antioxidant Liquid) 15 ml PO DAILY [facility] Last Admin: 10/06/19 09:36 Dose: 15 ml Documented by: Nystatin (Mycostatin Cream -) 1 applic TP TID [facility] Last Admin: 10/06/19 07:00 Dose: 1 applic Documented by: Vancomycin HCl (Vancomycin Oral Solution) 125 mg PO Q6HPO [facility] Last Admin: 10/06/19 12:26 Dose: 125 mg Documented by: - Objective Vital Signs: Vital Signs Temperature 98.9 F 10/06/19 12:46 Pulse Rate 90 10/06/19 12:00 Respiratory Rate 23 H 10/06/19 12:00 Blood Pressure 126/69 10/06/19 12:00 O2 Sat by Pulse Oximetry (%) 97 10/06/19 11:40 Constitutional: Yes: No Distress, Calm, Cachectic Cardiovascular: Yes: Regular Rate and Rhythm Respiratory: Yes: Regular, Mechanically Ventilated Gastrointestinal: Yes: Normal Bowel Sounds, Soft Genitourinary: Yes: Incontinence Musculoskeletal: Yes: Muscle Weakness Extremities: Yes: Other (generalized atrophy) Edema: No Peripheral Pulses WNL: Yes Neurological: Yes: Pre-Existing Deficit Labs: CBC, BMP 10/05/19 05:20 10/05/19 05:20 INR, PTT INR Cancelled 09/28/19 10:55 Problem List - Problems (1) UTI (urinary tract infection) Assessment/Plan: -UC: Microbiology 10/04/19 12:30 Stool Clostridioides difficile Antigen - Final 10/04/19 12:30 Stool Clostridioides difficile Toxin Assay - Final 09/28/19 10:55 Blood - Peripheral Venous Blood Culture - Final NO GROWTH AFTER 5 DAYS INCUBATION 09/28/19 10:55 Blood - Peripheral Venous Blood Culture - Final NO GROWTH AFTER 5 DAYS INCUBATION 09/28/19 11:15 Urine - Urine - Catheterized Urine Culture - Final Proteus Mirabilus - Esbl Produ Chryseobacterium Indologenes 2 Klebsiella Pneumoniae Group D Strep Or Entero Coccus 09/29/19 16:30 Sputum - Endotrachea Suction/Ventilator Gram Stain - Final 09/29/19 16:30 Sputum - Endotrachea Suction/Ventilator Sputum Culture - Final Pseudomonas Aeruginosa -IV Zosyn -ID consult -Afebrile Problems reviewed: Yes Code(s): N39.0 - URINARY TRACT INFECTION, SITE NOT SPECIFIED (2) Anemia Assessment/Plan: -Previously TAM on 09/15/19 -Started on Feosol BID -Venofer if BC negative -repeat Stool OB -Monitor trend -Transfuse only if Hg<7.0 to avoid fluid overload Problems reviewed: Yes Code(s): D64.9 - ANEMIA, UNSPECIFIED Qualifiers: (3) Chronic respiratory failure Assessment/Plan: -Pulmonary on board -Mech vent -not a candidate for weaning Problems reviewed: Yes Code(s): J96.10 - CHRONIC RESPIRATORY FAILURE, UNSP W HYPOXIA OR HYPERCAPNIA Qualifiers: (4) Malfunctioning jejunostomy tube Assessment/Plan: -Tolerating feeds through J tube Problems reviewed: Yes Code(s): K94.13 - ENTEROSTOMY MALFUNCTION (5) Pneumonia Assessment/Plan: -HOB elevated>30 degrees -IV Vanco -ID consult -febrile overnight, afebrile now -COVID 19 PCR negative -DO NOT USE G-TUBE for feeding -Elevate bed to 30-45 degrees for at least 30 mins after digital media sales consultant Problems reviewed: Yes Code(s): J18.9 - PNEUMONIA, UNSPECIFIED ORGANISM Qualifiers: Pneumonia type: due to other aerobic Gram-negative bacteria Laterality: bilateral Lung location: lower lobe of lung Qualified Code(s): J15.6 - Pn eumonia due to other Gram-negative bacteria (6) Cerebral palsy Problems reviewed: Yes Code(s): G80.9 - CEREBRAL PALSY, UNSPECIFIED Qualifiers: (7) Functional quadriplegia Problems reviewed: Yes Code(s): R53.2 - FUNCTIONAL QUADRIPLEGIA (8) Severe malnutrition Assessment/Plan: -Multivitamin -Prosource BID Problems reviewed: Yes Code(s): E43 - UNSPECIFIED SEVERE PROTEIN-CALORIE MALNUTRITION (9) C. difficile diarrhea Assessment/Plan: -oral Vancomycin -Rectal tube Problems reviewed: Yes Code(s): A04.72 - ENTEROCOLITIS D/T CLOSTRIDIUM DIFFICILE, NOT SPCF RECUR (10) Sepsis Assessment/Plan: -Cultures: Microbiology 10/04/19 12:30 Stool Clostridioides difficile Antigen - Final 10/04/19 12:30 Stool Clostridioides difficile Toxin Assay - Final 09/28/19 10:55 Blood - Peripheral Venous Blood Culture - Final NO GROWTH AFTER 5 DAYS INCUBATION 09/28/19 10:55 Blood - Peripheral Venous Blood Culture - Final NO GROWTH AFTER 5 DAYS INCUBATION 09/28/19 11:15 Urine - Urine - Catheterized Urine Culture - Final Proteus Mirabilus - Esbl Produ Chryseobacterium Indologenes 2 Klebsiella Pneumoniae Group D Strep Or Entero Coccus 09/29/19 16:30 Sputum - Endotrachea Suction/Ventilator Gram Stain - Final 09/29/19 16:30 Sputum - Endotrachea Suction/Ventilator Sputum Culture - Final Pseudomonas Aeruginosa -on zosyn Problems reviewed: Yes Code(s): A41.9 - SEPSIS, UNSPECIFIED ORGANISM Assessment/Plan See problem list
[2019-10-06] MEDS: CHLORHEXIDINE GLUCONATE 4% CLEANSER FOR DECOLONIZATION TP SCH (23:01)
--- NOTE | 2019-10-06 23:44 | PN ---
Progress Note, Physician History of Present Illness: AWAKE, NON VERBAL AFEBRILE NO ACUTE DISTRESS +LOOSE STOOLS C DIFF+ WBC WNL SPUTUM CULTURE PSEUDOMONAS URINE C/S MIXED ORGANISMS - Current Medication List Current Medications: Active Medications Acetaminophen (Tylenol Oral Solution -) 650 mg GT Q4H PRN PRN Reason: PAIN 1-3 Albuterol Sulfate (Ventolin 0.083% Nebulizer Soln -) 1 amp NEB RQID [facility] Last Admin: 10/06/19 20:22 Dose: 1 amp Documented by: Amino Acids (Prosource No Carb Liquid Pkt) 30 ml PO BID@0800,1730 [facility] Last Admin: 10/06/19 17:26 Dose: 30 ml Documented by: Banana Based Medical Food (Banatrol Plus Powder Packet) 1 packet PO TID [facility] Last Admin: 10/06/19 23:00 Dose: 1 packet Documented by: Chlorhexidine Gluconate (Hibiclens For Decolonization -) 1 applic TP HS [facility] Last Admin: 10/06/19 23:01 Dose: 1 applic Documented by: Clonazepam (Klonopin -) 0.25 mg GT DAILY [facility] Last Admin: 10/06/19 09:37 Dose: 0.25 mg Documented by: Clotrimazole (Lotrisone Cream (Small Tube)) 1 applic TP BID [facility] Last Admin: 10/06/19 23:01 Dose: 1 applic Documented by: Collagenase (Santyl -) 1 applic TP DAILY [facility]; Protocol Last Admin: 10/06/19 09:38 Dose: 1 applic Documented by: Famotidine (Pepcid) 20 mg NGT BID [facility] Last Admin: 10/06/19 23:00 Dose: 20 mg Documented by: Ferrous Sulfate (Feosol) 300 mg GT BID [facility] Last Admin: 10/06/19 23:02 Dose: 300 mg Documented by: Heparin Sodium (Porcine) (Heparin -) 5,000 unit SQ BID [facility] Last Admin: 10/06/19 23:01 Dose: 5,000 unit Documented by: Lamotrigine (Lamictal -) 50 mg PO BID [facility] Last Admin: 10/06/19 23:01 Dose: 50 mg Documented by: Multivitamins/Minerals (Certavite-Antioxidant Liquid) 15 ml PO DAILY [facility] Last Admin: 10/06/19 09:36 Dose: 15 ml Documented by: Nystatin (Mycostatin Cream -) 1 applic TP TID [facility] Last Admin: 10/06/19 23:00 Dose: 1 applic Documented by: Vancomycin HCl (Vancomycin Oral Solution) 125 mg PO Q6HPO [facility] Last Admin: 10/06/19 23:00 Dose: 125 mg Documented by: - Objective Vital Signs: Vital Signs Temperature 98.6 F 10/06/19 16:00 Pulse Rate 106 H 10/06/19 22:00 Respiratory Rate 20 10/06/19 22:00 Blood Pressure 94/63 10/06/19 22:00 O2 Sat by Pulse Oximetry (%) 97 10/06/19 21:49 Constitutional: Yes: No Distress Cardiovascular: Yes: Regular Rate and Rhythm, S1, S2 Respiratory: Yes: CTA Bilaterally Gastrointestinal: Yes: Normal Bowel Sounds, Soft Edema: Yes Labs: CBC, BMP 10/05/19 05:20 10/05/19 05:20 INR, PTT INR Cancelled 09/28/19 10:55 Assessment/Plan PNEUMONIA + SPUTUM C/S PSEUDOMONAS UTI HX MULTI-DRUG RESISTANT ORGANISMS + C DIFFICILE PO VANCOMYCIN COMPLETE 10D CONTACT PRECAUTIONS
[2019-10-07] MEDS: BANATROL PLUS POWDER PACKET PO SCH ×3 (07:19→21:57)
[2019-10-07] MEDS: NYSTATIN 100,000 UNIT/GM TOPICAL CREAM 15 GM TUBE TP SCH ×3 (07:19→21:58)
[2019-10-07] MEDS: VANCOMYCIN 250 MG/5 ML ORAL SOLUTION PO SCH ×4 (07:20→23:55)
[2019-10-07] MEDS: ALBUTEROL SO4 0.083% IH SOL 2.5 MG/3 ML VIAL.NEB. NEB SCH ×4 (09:00→21:00)
[2019-10-07] MEDS: MULTIVIT-MINERALS ORAL LIQUID PO SCH (10:30)
[2019-10-07] MEDS: FERROUS SO4 300 MG/5 ML ORAL SOLN UNIT DOSE CUPS GT SCH ×2 (10:30→21:57)
[2019-10-07] MEDS: HEPARIN NA (PORCINE) 5,000 UNITS/ML 1ML VIAL SQ SCH ×2 (10:30→21:57)
[2019-10-07] MEDS: AMINO ACIDS/PROTEIN HYDROLYS 30 ML LIQUID.PKT PO SCH ×2 (10:30→17:31)
[2019-10-07] MEDS: lamoTRIgine 25 MG TABLET PO SCH ×2 (10:31→21:57)
[2019-10-07] MEDS: COLLAGENASE CLOSTRIDIUM HIST. 30 GRAMS TUBE TP SCH (10:31)
[2019-10-07] MEDS: clonazePAM 0.5 MG TABLET GT SCH (10:31)
[2019-10-07] MEDS: CLOTRIMAZOLE/BETAMET DIPROP 15 GM TUBE TP SCH ×2 (10:31→21:58)
[2019-10-07] MEDS: FAMOTIDINE 40 MG/5 ML ORAL SUSPENSION NGT SCH ×2 (10:31→22:55)
--- NOTE | 2019-10-07 11:41 | PN ---
Teaching Attending Note Name of Resident: Eduardo Subramanian ATTENDING PHYSICIAN STATEMENT I saw and evaluated the patient. I reviewed the resident's note and discussed the case with the resident. I agree with the resident's findings and plan as documented. SUBJECTIVE: Pt seen and examined in the ICU. Vented, awake. No fevers recorded. OBJECTIVE: Vital Signs Period Temp Pulse Resp BP Sys/Gomez Pulse Ox Last 24 Hr 98.3 F-98.9 F 81-110 13-23 88-126/50-69 96-100 Intake & Output 10/04/19 10/05/19 10/06/19 10/07/19 23:59 23:59 23:59 23:59 Intake Total 1200 1387 1400 900 Output Total 1070 1300 1300 Balance 130 87 100 900 Weight 47.809 kg 46.266 kg 49.305 kg Gen: vented, awake Heart: RRR Lung: decreased breath sounds at the bases Abd: soft, nontender Ext: no edema CBC, BMP 10/05/19 05:20 10/05/19 05:20 Active Medications Acetaminophen (Tylenol Oral Solution -) 650 mg GT Q4H PRN PRN Reason: PAIN 1-3 Albuterol Sulfate (Ventolin 0.083% Nebulizer Soln -) 1 amp NEB RQID [facility] Last Admin: 10/07/19 09:00 Dose: 1 amp Documented by: Amino Acids (Prosource No Carb Liquid Pkt) 30 ml PO BID@0800,1730 [facility] Last Admin: 10/07/19 10:30 Dose: 30 ml Documented by: Banana Based Medical Food (Banatrol Plus Powder Packet) 1 packet PO TID [facility] Last Admin: 10/07/19 07:19 Dose: 1 packet Documented by: Chlorhexidine Gluconate (Hibiclens For Decolonization -) 1 applic TP HS [facility] Last Admin: 10/06/19 23:01 Dose: 1 applic Documented by: Clonazepam (Klonopin -) 0.25 mg GT DAILY [facility] Last Admin: 10/07/19 10:31 Dose: 0.25 mg Documented by: Clotrimazole (Lotrisone Cream (Small Tube)) 1 applic TP BID [facility] Last Admin: 10/07/19 10:31 Dose: 1 applic Documented by: Collagenase (Santyl -) 1 applic TP DAILY [facility]; Protocol Last Admin: 10/07/19 10:31 Dose: 1 applic Documented by: Famotidine (Pepcid) 20 mg NGT BID [facility] Last Admin: 10/07/19 10:31 Dose: 20 mg Documented by: Ferrous Sulfate (Feosol) 300 mg GT BID [facility] Last Admin: 10/07/19 10:30 Dose: 300 mg Documented by: Heparin Sodium (Porcine) (Heparin -) 5,000 unit SQ BID [facility] Last Admin: 10/07/19 10:30 Dose: 5,000 unit Documented by: Lamotrigine (Lamictal -) 50 mg PO BID [facility] Last Admin: 10/07/19 10:31 Dose: 50 mg Documented by: Multivitamins/Minerals (Certavite-Antioxidant Liquid) 15 ml PO DAILY [facility] Last Admin: 10/07/19 10:30 Dose: 15 ml Documented by: Nystatin (Mycostatin Cream -) 1 applic TP TID [facility] Last Admin: 10/07/19 07:19 Dose: 1 applic Documented by: Vancomycin HCl (Vancomycin Oral Solution) 125 mg PO Q6HPO [facility] Last Admin: 10/07/19 07:20 Dose: 125 mg Documented by: ASSESSMENT AND PLAN: C diff Colitis UTI Pneumonia Sacral Decubitus Ulcer Sepsis Seizure Disorder Schizophrenia HTN Anemia - continue antibiotics per ID - continue volume assist control - enteral feeds - DVT/GI prophylaxis - can monitor on vent floor
--- NOTE | 2019-10-07 12:52 | PN ---
Progress Note, Physician Chief Complaint: UTI Chronic respiratory failure Clogged J tube Pneumonia History of Present Illness: NAD on mechanical vent Has working J tube and G tube now Cdiff + now, on PO Vanco Zosyn for pneumonia - Current Medication List Current Medications: Active Medications Acetaminophen (Tylenol Oral Solution -) 650 mg GT Q4H PRN PRN Reason: PAIN 1-3 Albuterol Sulfate (Ventolin 0.083% Nebulizer Soln -) 1 amp NEB RQID [facility] Last Admin: 10/07/19 09:00 Dose: 1 amp Documented by: Amino Acids (Prosource No Carb Liquid Pkt) 30 ml PO BID@0800,1730 [facility] Last Admin: 10/07/19 10:30 Dose: 30 ml Documented by: Banana Based Medical Food (Banatrol Plus Powder Packet) 1 packet PO TID [facility] Last Admin: 10/07/19 07:19 Dose: 1 packet Documented by: Chlorhexidine Gluconate (Hibiclens For Decolonization -) 1 applic TP HS [facility] Last Admin: 10/06/19 23:01 Dose: 1 applic Documented by: Clonazepam (Klonopin -) 0.25 mg GT DAILY [facility] Last Admin: 10/07/19 10:31 Dose: 0.25 mg Documented by: Clotrimazole (Lotrisone Cream (Small Tube)) 1 applic TP BID [facility] Last Admin: 10/07/19 10:31 Dose: 1 applic Documented by: Collagenase (Santyl -) 1 applic TP DAILY [facility]; Protocol Last Admin: 10/07/19 10:31 Dose: 1 applic Documented by: Famotidine (Pepcid) 20 mg NGT BID [facility] Last Admin: 10/07/19 10:31 Dose: 20 mg Documented by: Ferrous Sulfate (Feosol) 300 mg GT BID [facility] Last Admin: 10/07/19 10:30 Dose: 300 mg Documented by: Heparin Sodium (Porcine) (Heparin -) 5,000 unit SQ BID [facility] Last Admin: 10/07/19 10:30 Dose: 5,000 unit Documented by: Lamotrigine (Lamictal -) 50 mg PO BID [facility] Last Admin: 10/07/19 10:31 Dose: 50 mg Documented by: Multivitamins/Minerals (Certavite-Antioxidant Liquid) 15 ml PO DAILY [facility] Last Admin: 10/07/19 10:30 Dose: 15 ml Documented by: Nystatin (Mycostatin Cream -) 1 applic TP TID [facility] Last Admin: 10/07/19 07:19 Dose: 1 applic Documented by: Vancomycin HCl (Vancomycin Oral Solution) 125 mg PO Q6HPO [facility] Last Admin: 10/07/19 12:41 Dose: 125 mg Documented by: - Objective Vital Signs: Vital Signs Temperature 98.6 F 10/07/19 10:00 Pulse Rate 101 H 10/07/19 12:00 Respiratory Rate 17 10/07/19 12:00 Blood Pressure 107/62 10/07/19 12:00 O2 Sat by Pulse Oximetry (%) 99 10/07/19 09:00 Constitutional: Yes: No Distress, Calm, Cachectic Cardiovascular: Yes: Regular Rate and Rhythm Respiratory: Yes: Regular, Mechanically Ventilated Gastrointestinal: Yes: Soft, Hyperactive Bowel Sounds Genitourinary: Yes: Incontinence Musculoskeletal: Yes: Muscle Weakness Extremities: Yes: Other (contracted, generalized atrophy) Edema: No Peripheral Pulses WNL: Yes Neurological: Yes: Pre-Existing Deficit Labs: CBC, BMP 10/05/19 05:20 10/05/19 05:20 INR, PTT INR Cancelled 09/28/19 10:55 Problem List - Problems (1) UTI (urinary tract infection) Assessment/Plan: -UC: Microbiology 10/04/19 12:30 Stool Clostridioides difficile Antigen - Final 10/04/19 12:30 Stool Clostridioides difficile Toxin Assay - Final 09/28/19 10:55 Blood - Peripheral Venous Blood Culture - Final NO GROWTH AFTER 5 DAYS INCUBATION 09/28/19 10:55 Blood - Peripheral Venous Blood Culture - Final NO GROWTH AFTER 5 DAYS INCUBATION 09/28/19 11:15 Urine - Urine - Catheterized Urine Culture - Final Proteus Mirabilus - Esbl Produ Chryseobacterium Indologenes 2 Klebsiella Pneumoniae Group D Strep Or Entero Coccus 09/29/19 16:30 Sputum - Endotrachea Suction/Ventilator Gram Stain - Final 09/29/19 16:30 Sputum - Endotrachea Suction/Ventilator Sputum Culture - Final Pseudomonas Aeruginosa -IV Zosyn -ID consult -Afebrile Problems reviewed: Yes Code(s): N39.0 - URINARY TRACT INFECTION, SITE NOT SPECIFIED (2) Anemia Assessment/Plan: -Previously TAM on 09/15/19 -Started on Feosol BID -Venofer if BC negative -repeat Stool OB -Monitor trend -Transfuse only if Hg<7.0 to avoid fluid overload Problems reviewed: Yes Code(s): D64.9 - ANEMIA, UNSPECIFIED Qualifiers: (3) Chronic respiratory failure Assessment/Plan: [facility] Problems reviewed: Yes Code(s): J96.10 - CHRONIC RESPIRATORY FAILURE, UNSP W HYPOXIA OR HYPERCAPNIA Qualifiers: (4) Malfunctioning jejunostomy tube Assessment/Plan: -Tolerating feeds through J tube Problems reviewed: Yes Code(s): K94.13 - ENTEROSTOMY MALFUNCTION (5) Pneumonia Assessment/Plan: -HOB elevated>30 degrees -IV Vanco -ID consult -febrile overnight, afebrile now -COVID 19 PCR negative -DO NOT USE G-TUBE for feeding -Elevate bed to 30-45 degrees for at least 30 mins after medical grade shoemaker Problems reviewed: Yes Code(s): J18.9 - PNEUMONIA, UNSPECIFIED ORGANISM Qualifiers: Pneumonia type: due to other aerobic Gram-negative bacteria Laterality: bilateral Lung location: lower lobe of lung Qualified Code(s): J15.6 - Pneumonia due to other Gram-negative bacteria (6) Cerebral palsy Problems reviewed: Yes Code(s): G80.9 - CEREBRAL PALSY, UNSPECIFIED Qualifiers: (7) Functional quadriplegia Problems reviewed: Yes Code(s): R53.2 - FUNCTIONAL QUADRIPLEGIA (8) Severe malnutrition Assessment/Plan: -Multivitamin -Prosource BID Problems reviewed: Yes Code(s): E43 - UNSPECIFIED SEVERE PROTEIN-CALORIE MALNUTRITION (9) C. difficile diarrhea Assessment/Plan: -oral Vancomycin -Rectal tube Problems reviewed: Yes Code(s): A04.72 - ENTEROCOLITIS D/T CLOSTRIDIUM DIFFICILE, NOT SPCF RECUR (10) Sepsis Assessment/Plan: -Cultures: Microbiology 10/04/19 12:30 Stool Clostridioides difficile Antigen - Final 10/04/19 12:30 Stool Clostridioides difficile Toxin Assay - Final 09/28/19 10:55 Blood - Peripheral Venous Blood Culture - Final NO GROWTH AFTER 5 DAYS INCUBATION 09/28/19 10:55 Blood - Peripheral Venous Blood Culture - Final NO GROWTH AFTER 5 DAYS INCUBATION 09/28/19 11:15 Urine - Urine - Catheterized Urine Culture - Final Proteus Mirabilus - Esbl Produ Chryseobacterium Indologenes 2 Klebsiella Pneumoniae Group D Strep Or Entero Coccus 09/29/19 16:30 Sputum - Endotrachea Suction/Ventilator Gram Stain - Final 09/29/19 16:30 Sputum - Endotrachea Suction/Ventilator Sputum Culture - F inal Pseudomonas Aeruginosa -on zosyn Problems reviewed: Yes Code(s): A41.9 - SEPSIS, UNSPECIFIED ORGANISM Assessment/Plan See problem list
--- NOTE | 2019-10-07 13:32 | PN ---
Physical Exam: SUBJECTIVE: Patient seen and examined. No overnight event. Afebrile and asymptomatic. OBJECTIVE: Vital Signs Period Temp Pulse Resp BP Sys/Gomez Pulse Ox Last 24 Hr 98.3 F-98.9 F 81-110 13-21 88-122/50-69 97-100 GENERAL: frail, chronically ill-appearing, dehydrated, nonverbal but tracks examiner with eyes, soft mittens, hitting self in face repeatedly, cachetic HEENT: PERRLA, EOMI, dry mucous membranes NECK/BACK: full ROM, neck supple CARDIOVASCULAR: regular rate/rhythm, no MGR, strong peripheral pulses, capillary refill 3 seconds, no edema LUNGS/RESPIRATORY: trach in place and hooked up to vent, no increased WOB, coarse breath sounds bilaterally worse on the right side, decreased breath sounds on right compared with left, bilateral mild expiratory wheezes GI/ABDOMEN: G and J tubes in place, rectal tube in place, symmetric [id number], normoactive BS, soft, no obvious ttp, no midline pulsatile masses : [place] in place MSK/EXTREMITIES: chronic-appearing muscle atrophy, no acute deformity, in pressure boots DERM/SKIN: warm and dry, no pallor, no pathologic-appearing bruising, lower thoracic advance-stage pressure ulcer overlying spine, sacral decubitus ulcer, right hip pressure ulcer NEUROLOGICAL: eyes open and tracking examiner, CN II-XII grossly intact, no facial droop, leaning to right side, contracted Laboratory Results - last 24 hr 10/07/19 10:51 Phosphorus 2.4 L Active Medications Generic Name Dose Route Start Last Admin Trade Name Freq PRN Reason Stop Dose Admin Acetaminophen 650 mg 09/28/19 17:40 Tylenol Oral Solution - GT Q4H PRN PAIN 1-3 Albuterol Sulfate 1 amp 09/28/19 20:00 10/07/19 09:00 Ventolin 0.083% Nebulizer Soln - NEB 1 amp RQID [facility] Administration Amino Acids 30 ml 09/29/19 17:30 10/07/19 10:30 Prosource No Carb Liquid Pkt PO 30 ml BID@0800,1730 [facility] Administration Banana Based Medical Food 1 packet 10/05/19 14:00 10/07/19 13:04 Banatrol Plus Powder Packet PO 1 packet TID [facility] Administration Chlorhexidine Gluconate 1 applic 09/29/19 22:00 10/06/19 23:01 Hibiclens For Decolonization - TP 1 applic HS [facility] Administration Clonazepam 0.25 mg 09/29/19 10:00 10/07/19 10:31 Klonopin - GT 0.25 mg DAILY [facility] Administration Clotrimazole 1 applic 09/29/19 12:00 10/07/19 10:31 Lotrisone Cream (Small Tube) TP 1 applic BID [facility] Administration Collagenase 1 applic 09/29/19 12:30 10/07/19 10:31 Santyl - TP 1 applic DAILY [facility] Administration Protocol Famotidine 20 mg 09/28/19 22:00 10/07/19 10:31 Pepcid NGT 20 mg BID [facility] Administration Ferrous Sulfate 300 mg 09/29/19 11:45 10/07/19 10:30 Feosol GT 300 mg BID [facility] Administration Heparin Sodium (Porcine) 5,000 unit 09/28/19 22:00 10/07/19 10:30 Heparin - SQ 5,000 unit BID [facility] Administration Lamotrigine 50 mg 09/28/19 22:00 10/07/19 10:31 Lamictal - PO 50 mg BID [facility] Administration Multivitamins/Minerals 15 ml 09/29/19 11:45 10/07/19 10:30 Certavite-Antioxidant Liquid PO 15 ml DAILY [facility] Administration Nystatin 1 applic 09/28/19 22:00 10/07/19 13:04 Mycostatin Cream - TP 1 applic TID [facility] Administration Vancomycin HCl 125 mg 10/04/19 18:00 10/07/19 12:41 Vancomycin Oral Solution PO 125 mg Q6HPO [facility] Administration ASSESSMENT/PLAN: 69YOM with CP, Parkinsons, Schizophrenia, seizures, HTN, respiratory failure now trach dependent, PNA, multiple pressure ulcers (back sacral), C-diff enterocolitis, PEG and G-J tube (placed by IR on 09/14/19 then G tube replaced on 09/22/19 for decompression), who was BIBEMS from [facility] for clogged J-tubed then found to have urosepsis and likely PNA as well, persistently hypotensive/septic shock in the ED. C. diff positive. #Neuro/Psych seizure disorder (one sz in ED yesterday), CP, Parkinsons, schizophrenia Monitor Ativan prn seizure or agitation (careful with BP) Continue home lamotrigine #Endocrine no concerns Monitor #Cardiovascular hypotension, intermittent, given gentle IVF bolus overnight and was responsive IVF bolus if needed No pressors Monitor BP #Pulm/Resp aspiration PNA RLL consolidation on CT, COPD, chronic trach/vent Duonebs prn HOB at ~40 deg aspiration precautions Suctioning (+deep) #GI G-J tube malfunction (replaced & resolved), PEG tube, ventral hernia Tube feeds via J tube per Dietary Do not feed through PEG tube # complicated UTI s/p antibiotic course completed [place] Monitor UOP #Heme chronic iron deficiency anemia, thrombocytosis Monitor #ID C-diff diarrhea- UCx postive for c-diff Continue vancomycin D4 PO Q6H for 7 more days until 10/13 #Derm Lower thoracic stage 3 Stage 1 sacral pressure ulcers Dressing changes Monitor for infection Turn/reposition #Prophylaxis DVT: Hep sq GI: Continue home famotidine, tube feeds per dietary Lines: only peripheral Dispo: Transfer to med/surg, awaiting ID clearance to return to [place], replete phos Visit type - Emergency Visit Emergency Visit: Yes ED Registration Date: 09/28/19 Care time: The patient presented to the Emergency Department on the above date and was hospitalized for further evaluation of their emergent condition. - New Patient This patient is new to me today: Yes Date on this admission: 10/13/19 - Critical Care Critical Care patient: No - Discharge Referral Referred to [facility] No ATTENDING PHYSICIAN STATEMENT I saw and evaluated the patient. I reviewed the resident's note and discussed the case with the resident. I agree with the resident's findings and plan as documented. SUBJECTIVE: OBJECTIVE: ASSESSMENT AND PLAN:
[2019-10-07] MEDS ORDERED: NAPH,MB-DB/K PH,MBDB POWDER PACKET PO ONE (13:33)
[2019-10-07 15:19] VITALS: BMI 19.7
--- NOTE | 2019-10-07 16:02 | PN ---
Progress Note, Physician Chief Complaint: Sepsis History of Present Illness: Seen and examined in the ICU on vent no overnight events getting tube feeding making urine - Current Medication List Current Medications: Active Medications Acetaminophen (Tylenol Oral Solution -) 650 mg GT Q4H PRN PRN Reason: PAIN 1-3 Albuterol Sulfate (Ventolin 0.083% Nebulizer Soln -) 1 amp NEB RQID [facility] Last Admin: 10/07/19 09:00 Dose: 1 amp Documented by: Amino Acids (Prosource No Carb Liquid Pkt) 30 ml PO BID@0800,1730 [facility] Last Admin: 10/07/19 10:30 Dose: 30 ml Documented by: Banana Based Medical Food (Banatrol Plus Powder Packet) 1 packet PO TID [facility] Last Admin: 10/07/19 13:04 Dose: 1 packet Documented by: Chlorhexidine Gluconate (Hibiclens For Decolonization -) 1 applic TP HS [facility] Last Admin: 10/06/19 23:01 Dose: 1 applic Documented by: Clonazepam (Klonopin -) 0.25 mg GT DAILY [facility] Last Admin: 10/07/19 10:31 Dose: 0.25 mg Documented by: Clotrimazole (Lotrisone Cream (Small Tube)) 1 applic TP BID [facility] Last Admin: 10/07/19 10:31 Dose: 1 applic Documented by: Collagenase (Santyl -) 1 applic TP DAILY [facility]; Protocol Last Admin: 10/07/19 10:31 Dose: 1 applic Documented by: Famotidine (Pepcid) 20 mg NGT BID [facility] Last Admin: 10/07/19 10:31 Dose: 20 mg Documented by: Ferrous Sulfate (Feosol) 300 mg GT BID [facility] Last Admin: 10/07/19 10:30 Dose: 300 mg Documented by: Heparin Sodium (Porcine) (Heparin -) 5,000 unit SQ BID [facility] Last Admin: 10/07/19 10:30 Dose: 5,000 unit Documented by: Lamotrigine (Lamictal -) 50 mg PO BID [facility] Last Admin: 10/07/19 10:31 Dose: 50 mg Documented by: Multivitamins/Minerals (Certavite-Antioxidant Liquid) 15 ml PO DAILY [facility] Last Admin: 10/07/19 10:30 Dose: 15 ml Documented by: Nystatin (Mycostatin Cream -) 1 applic TP TID [facility] Last Admin: 10/07/19 13:04 Dose: 1 applic Documented by: Vancomycin HCl (Vancomycin Oral Solution) 125 mg PO Q6HPO [facility] Last Admin: 10/07/19 12:41 Dose: 125 mg Documented by: - Objective Vital Signs: Vital Signs Temperature 98.8 F 10/07/19 13:48 Pulse Rate 101 H 10/07/19 13:48 Respiratory Rate 17 10/07/19 13:48 Blood Pressure 99/56 L 10/07/19 13:48 O2 Sat by Pulse Oximetry (%) 99 10/07/19 09:00 Constitutional: Yes: No Distress Respiratory: Yes: Mechanically Ventilated Edema: No Labs: CBC, BMP 10/05/19 05:20 10/05/19 05:20 INR, PTT INR Cancelled 09/28/19 10:55 Assessment/Plan 69 year old male with hitory of chronic respiratory failure on the vent, COPD, Parkinsons, seizure disorder, cerebral palsy who presented from [place] with dislodged feeding tube and found to have suspected sepsis/shock and w/o means of enteral nutrition. 1. Sepsis/Shock 2. Dislodged feeding tube 3. Hypoalbuminemia/malnutrition 4. Hypomagnesemia 5. Anemia 6. C. diff colitis Renal function stable Electrolytes within normal limits Tolerating tube feeds Trend electrolyte daily continue PO vanco will follow up as needed Thank you Mat Julian DO
[2019-10-07 17:46] LABS: BASO % 0.4 % (0-2.0); EOS % 1.6 % (0-4.5); HEMATOCRIT 27.5 % (35.4-49); HEMOGLOBIN 8.8 GM/dL (11.7-16.9); LYMPH % 21.1 % (8-40); MCH 27.7 pg (25.7-33.7); MCHC 31.9 g/dl (32.0-35.9); MEAN CELL VOLUME 86.7 fl (80-96); MONO % 9.3 % (3.8-10.2); NEUT % 67.6 % (42.8-82.8); PLATELET COUNT 760 K/MM3 (134-434); RBC 3.17 M/mm3 (4.00-5.60); RDW 18.5 % (11.9-15.9); WHITE BLOOD COUNT 9.2 K/mm3 (4.0-10.0)
[2019-10-07] MEDS ORDERED: PT OWN MED DRAWER 7, Y5N ONE (21:50)
[2019-10-07] MEDS: CHLORHEXIDINE GLUCONATE 4% CLEANSER FOR DECOLONIZATION TP SCH (21:57)
[2019-10-08] MEDS: VANCOMYCIN 250 MG/5 ML ORAL SOLUTION PO SCH ×3 (06:18→17:06)
[2019-10-08] MEDS: NYSTATIN 100,000 UNIT/GM TOPICAL CREAM 15 GM TUBE TP SCH ×3 (06:18→22:46)
[2019-10-08] MEDS: BANATROL PLUS POWDER PACKET PO SCH ×3 (06:18→22:44)
[2019-10-08 07:42] LABS: ALBUMIN 1.7 g/dl (3.4-5.0); BILIRUBIN,TOTAL 0.7 mg/dL (0.2-1); BLOOD UREA NITROGEN 8.3 mg/dL (7-18); CREATININE 0.4 mg/dL (0.55-1.3); MAGNESIUM 2.1 mg/dL (1.8-2.4); PHOSPHOROUS 2.8 mg/dL (2.5-4.9); POTASSIUM 4.7 mmol/L (3.5-5.1); TOT PROT 6.4 g/dl (6.4-8.2)
[2019-10-08] MEDS: ALBUTEROL SO4 0.083% IH SOL 2.5 MG/3 ML VIAL.NEB. NEB SCH ×4 (07:55→20:54)
[2019-10-08] MEDS ORDERED: PT OWN MED DRAWER 7, Y5N ONE (10:17)
[2019-10-08] MEDS: MULTIVIT-MINERALS ORAL LIQUID PO SCH (10:20)
[2019-10-08] MEDS: FERROUS SO4 300 MG/5 ML ORAL SOLN UNIT DOSE CUPS GT SCH ×2 (10:20→22:44)
[2019-10-08] MEDS: AMINO ACIDS/PROTEIN HYDROLYS 30 ML LIQUID.PKT PO SCH ×2 (10:20→17:06)
[2019-10-08] MEDS: HEPARIN NA (PORCINE) 5,000 UNITS/ML 1ML VIAL SQ SCH ×2 (10:20→22:44)
[2019-10-08] MEDS: lamoTRIgine 25 MG TABLET PO SCH ×2 (10:21→22:45)
[2019-10-08] MEDS: clonazePAM 0.5 MG TABLET GT SCH (10:21)
[2019-10-08] MEDS: COLLAGENASE CLOSTRIDIUM HIST. 30 GRAMS TUBE TP SCH (10:21)
[2019-10-08] MEDS: FAMOTIDINE 40 MG/5 ML ORAL SUSPENSION NGT SCH ×2 (10:21→22:46)
[2019-10-08] MEDS: CLOTRIMAZOLE/BETAMET DIPROP 15 GM TUBE TP SCH ×2 (10:21→22:45)
--- NOTE | 2019-10-08 11:04 | PN ---
Physical Exam: SUBJECTIVE: Patient seen and examined. No overnight event. Afebrile and asymptomatic. Moving bowel with C-diff. Discussed with SW, plan to sent pt back to [place] with isolation room for continued Abx therapy for 6 more days until 10/14/19. OBJECTIVE: Vital Signs Period Temp Pulse Resp BP Sys/Gomez Pulse Ox Last 24 Hr 98.0 F-100.0 F 88-107 11-18 93-139/53-75 91-100 GENERAL: frail, chronically ill-appearing, dehydrated, nonverbal but tracks examiner with eyes, soft mittens, hitting self in face repeatedly, cachetic HEENT: PERRLA, EOMI, dry mucous membranes NECK/BACK: full ROM, neck supple CARDIOVASCULAR: regular rate/rhythm, no MGR, strong peripheral pulses, capillary refill 3 seconds, no edema LUNGS/RESPIRATORY: trach in place and hooked up to vent, no increased WOB, coarse breath sounds bilaterally worse on the right side, decreased breath sounds on right compared with left, bilateral mild expiratory wheezes GI/ABDOMEN: G and J tubes in place, rectal tube in place, symmetric [id number], normoactive BS, soft, no obvious ttp, no midline pulsatile masses : Marav[place] in place MSK/EXTREMITIES: chronic-appearing muscle atrophy, no acute deformity, in pressure boots DERM/SKIN: warm and dry, no pallor, no pathologic-appearing bruising, lower thoracic advance-stage pressure ulcer overlying spine, sacral decubitus ulcer, right hip pressure ulcer NEUROLOGICAL: eyes open and tracking examiner, CN II-XII grossly intact, no facial droop, leaning to right side, contracted Laboratory Results - last 24 hr 10/07/19 10/07/19 10/08/19 10:51 17:15 06:05 WBC 9.2 RBC 3.17 L Hgb 8.8 L Hct 27.5 L MCV 86.7 MCH 27.7 MCHC 31.9 L RDW 18.5 H Plt Count 760 H D MPV 7.0 L Absolute Neuts (auto) 6.2 Neutrophils % 67.6 Lymphocytes % 21.1 D Monocytes % 9.3 Eosinophils % 1.6 Basophils % 0.4 Nucleated RBC % 0 Sodium 135 L Potassium 4.7 Chloride 102 Carbon Dioxide 28 Anion Gap 5 L BUN 8.3 Creatinine 0.4 L Est GFR (CKD-EPI)AfAm 140.46 Est GFR (CKD-EPI)NonAf 121.19 Random Glucose 89 Calcium 11.0 H Phosphorus 2.4 L 2.8 Magnesium 2.1 Total Bilirubin 0.7 AST 26 ALT 22 Alkaline Phosphatase 134 H Total Protein 6.4 Albumin 1.7 L Active Medications Generic Name Dose Route Start Last Admin Trade Name Freq PRN Reason Stop Dose Admin Acetaminophen 650 mg 09/28/19 17:40 Tylenol Oral Solution - GT Q4H PRN PAIN 1-3 Albuterol Sulfate 1 amp 09/28/19 20:00 10/08/19 07:55 Ventolin 0.083% Nebulizer Soln - NEB 1 amp RQID ELOINA Administration Amino Acids 30 ml 09/29/19 17:30 10/08/19 10:20 Prosource No Carb Liquid Pkt PO 30 ml BID@0800,1730 ELOINA Administration Banana Based Medical Food 1 packet 10/05/19 14:00 10/08/19 06:18 Banatrol Plus Powder Packet PO 1 packet TID ELOINA Administration Chlorhexidine Gluconate 1 applic 09/29/19 22:00 10/07/19 21:57 Hibiclens For Decolonization - TP 1 applic HS ELOINA Administration Clonazepam 0.25 mg 09/29/19 10:00 10/08/19 10:21 Klonopin - GT 0.25 mg DAILY ELOINA Administration Clotrimazole 1 applic 09/29/19 12:00 10/08/19 10:21 Lotrisone Cream (Small Tube) TP 1 applic BID ELOINA Administration Collagenase 1 applic 09/29/19 12:30 10/08/19 10:21 Santyl - TP 1 applic DAILY ELO[facility] Administration Protocol Famotidine 20 mg 09/28/19 22:00 10/08/19 10:21 Pepcid NGT 20 mg BID ELOINA Administration Ferrous Sulfate 300 mg 09/29/19 11:45 10/08/19 10:20 Feosol GT 300 mg BID ELOINA Administration Heparin Sodium (Porcine) 5,000 unit 09/28/19 22:00 10/08/19 10:20 Heparin - SQ 5,000 unit BID [facility] Administration Lamotrigine 50 mg 09/28/19 22:00 10/08/19 10:21 Lamictal - PO 50 mg BID ELO[facility] Administration Multivitamins/Minerals 15 ml 09/29/19 11:45 10/08/19 10:20 Certavite-Antioxidant Liquid PO 15 ml DAILY [facility] Administration Nystatin 1 applic 09/28/19 22:00 10/08/19 06:18 Mycostatin Cream - TP 1 applic TID ELOINA Administration Vancomycin HCl 125 mg 10/04/19 18:00 10/08/19 06:18 Vancomycin Oral Solution PO 125 mg Q6HPO ELO[facility] Administration ASSESSMENT/PLAN: 69YOM with CP, Parkinsons, Schizophrenia, seizures, HTN, respiratory failure now trach dependent, PNA, multiple pressure ulcers (back sacral), C-diff enterocolitis, PEG and G-J tube (placed by IR on 09/14/19 then G tube replaced on 09/22/19 for decompression), who was BIBEMS from [facility] for clogged J-tubed then found to have urosepsis and likely PNA as well, persistently hypotensive/septic shock in the ED. C. diff positive. #Neuro/Psych seizure disorder (one sz in ED yesterday), CP, Parkinsons, schizophrenia Monitor Ativan prn seizure or agitation (careful with BP) Continue home lamotrigine #Endocrine no concerns Monitor #Cardiovascular hypotension, intermittent, given gentle IVF bolus overnight and was responsive IVF bolus if needed No pressors Monitor BP #Pulm/Resp aspiration PNA RLL consolidation on CT, COPD, chronic trach/vent- resolved Duonebs prn HOB at ~40 deg aspiration precautions Suctioning (+deep) #GI G-J tube malfunction (replaced & resolved), PEG tube, ventral hernia Tube feeds via J tube per Dietary Do not feed through PEG tube # complicated UTI s/p antibiotic course completed- resolved Maravilla Monitor UOP #Heme chronic iron deficiency anemia, thrombocytosis Monitor #ID C-diff diarrhea- UCx postive for c-diff Continue vancomycin D4 PO Q6H for 6 more days until 10/13 #Derm Lower thoracic stage 3 Stage 1 sacral pressure ulcers Dressing changes Monitor for infection Turn/reposition #Prophylaxis DVT: Hep sq GI: Continue home famotidine, tube feeds per dietary Lines: only peripheral lines Dispo: awaiting ID clearance to return to [place], replete phos, Discussed with SW, plan to sent pt back to [place] with isolation room for continued Abx therapy for 6 more days until 10/14/19. Visit type - Emergency Visit Emergency Visit: Yes ED Registration Date: 09/28/19 Care time: The patient presented to the Emergency Department on the above date and was hospitalized for further evaluation of their emergent condition. - New Patient This patient is new to me today: Yes Date on this admission: 10/13/19 - Critical Care Critical Care patient: No - Discharge Referral Referred to [facility] No ATTENDING PHYSICIAN STATEMENT I saw and evaluated the patient. I reviewed the resident's note and discussed the case with the resident. I agree with the resident's findings and plan as documented. SUBJECTIVE: OBJECTIVE: ASSESSMENT AND PLAN:
--- NOTE | 2019-10-08 12:07 | PN ---
Teaching Attending Note Name of Resident: Eduardo Subramanian ATTENDING PHYSICIAN STATEMENT I saw and evaluated the patient. I reviewed the resident's note and discussed the case with the resident. I agree with the resident's findings and plan as documented. SUBJECTIVE: Pt seen and examined in the ICU. Vented, awake. No fevers recorded. OBJECTIVE: Vital Signs Period Temp Pulse Resp BP Sys/Gomez Pulse Ox Last 24 Hr 98.0 F-100.0 F 88-107 11-18 93-139/53-75 91-100 Gen: vented, awake Heart: RRR Lung: decreased breath sounds at the bases Abd: soft, nontender Ext: no edema CBC, BMP 10/07/19 17:15 10/08/19 06:05 Active Medications Acetaminophen (Tylenol Oral Solution -) 650 mg GT Q4H PRN PRN Reason: PAIN 1-3 Albuterol Sulfate (Ventolin 0.083% Nebulizer Soln -) 1 amp NEB RQID [facility] Last Admin: 10/08/19 11:05 Dose: 1 amp Documented by: Amino Acids (Prosource No Carb Liquid Pkt) 30 ml PO BID@0800,1730 [facility] Last Admin: 10/08/19 10:20 Dose: 30 ml Documented by: Banana Based Medical Food (Banatrol Plus Powder Packet) 1 packet PO TID [facility] Last Admin: 10/08/19 06:18 Dose: 1 packet Documented by: Chlorhexidine Gluconate (Hibiclens For Decolonization -) 1 applic TP HS [facility] Last Admin: 10/07/19 21:57 Dose: 1 applic Documented by: Clonazepam (Klonopin -) 0.25 mg GT DAILY [facility] Last Admin: 10/08/19 10:21 Dose: 0.25 mg Documented by: Clotrimazole (Lotrisone Cream (Small Tube)) 1 applic TP BID [facility] Last Admin: 10/08/19 10:21 Dose: 1 applic Documented by: Collagenase (Santyl -) 1 applic TP DAILY [facility]; Protocol Last Admin: 10/08/19 10:21 Dose: 1 applic Documented by: Famotidine (Pepcid) 20 mg NGT BID [facility] Last Admin: 10/08/19 10:21 Dose: 20 mg Documented by: Ferrous Sulfate (Feosol) 300 mg GT BID [facility] Last Admin: 10/08/19 10:20 Dose: 300 mg Documented by: Heparin Sodium (Porcine) (Heparin -) 5,000 unit SQ BID [facility] Last Admin: 10/08/19 10:20 Dose: 5,000 unit Documented by: Lamotrigine (Lamictal -) 50 mg PO BID [facility] Last Admin: 10/08/19 10:21 Dose: 50 mg Documented by: Multivitamins/Minerals (Certavite-Antioxidant Liquid) 15 ml PO DAILY [facility] Last Admin: 10/08/19 10:20 Dose: 15 ml Documented by: Nystatin (Mycostatin Cream -) 1 applic TP TID [facility] Last Admin: 10/08/19 06:18 Dose: 1 applic Documented by: Vancomycin HCl (Vancomycin Oral Solution) 125 mg PO Q6HPO [facility] Last Admin: 10/08/19 06:18 Dose: 125 mg Documented by: ASSESSMENT AND PLAN: C diff Colitis UTI Pneumonia Sacral Decubitus Ulcer Sepsis Seizure Disorder Schizophrenia HTN Anemia - continue antibiotics per ID - continue volume assist control - enteral feeds - DVT/GI prophylaxis - can monitor on vent floor or d/c back to SNF
--- NOTE | 2019-10-08 13:33 | PN ---
Progress Note, Physician Chief Complaint: UTI Chronic respiratory failure Clogged J tube Pneumonia History of Present Illness: NAD on mechanical vent Has working J tube and G tube now Cdiff + on PO Vanco Zosyn finished for pneumonia Still has diarrhea with flexiseal - Current Medication List Current Medications: Active Medications Acetaminophen (Tylenol Oral Solution -) 650 mg GT Q4H PRN PRN Reason: PAIN 1-3 Albuterol Sulfate (Ventolin 0.083% Nebulizer Soln -) 1 amp NEB RQID [facility] Last Admin: 10/08/19 11:05 Dose: 1 amp Documented by: Amino Acids (Prosource No Carb Liquid Pkt) 30 ml PO BID@0800,1730 [facility] Last Admin: 10/08/19 10:20 Dose: 30 ml Documented by: Banana Based Medical Food (Banatrol Plus Powder Packet) 1 packet PO TID [facility] Last Admin: 10/08/19 06:18 Dose: 1 packet Documented by: Chlorhexidine Gluconate (Hibiclens For Decolonization -) 1 applic TP HS [facility] Last Admin: 10/07/19 21:57 Dose: 1 applic Documented by: Clonazepam (Klonopin -) 0.25 mg GT DAILY [facility] Last Admin: 10/08/19 10:21 Dose: 0.25 mg Documented by: Clotrimazole (Lotrisone Cream (Small Tube)) 1 applic TP BID [facility] Last Admin: 10/08/19 10:21 Dose: 1 applic Documented by: Collagenase (Santyl -) 1 applic TP DAILY [facility]; Protocol Last Admin: 10/08/19 10:21 Dose: 1 applic Documented by: Famotidine (Pepcid) 20 mg NGT BID [facility] Last Admin: 10/08/19 10:21 Dose: 20 mg Documented by: Ferrous Sulfate (Feosol) 300 mg GT BID [facility] Last Admin: 10/08/19 10:20 Dose: 300 mg Documented by: Heparin Sodium (Porcine) (Heparin -) 5,000 unit SQ BID [facility] Last Admin: 10/08/19 10:20 Dose: 5,000 unit Documented by: Lamotrigine (Lamictal -) 50 mg PO BID [facility] Last Admin: 10/08/19 10:21 Dose: 50 mg Documented by: Multivitamins/Minerals (Certavite-Antioxidant Liquid) 15 ml PO DAILY [facility] Last Admin: 10/08/19 10:20 Dose: 15 ml Documented by: Nystatin (Mycostatin Cream -) 1 applic TP TID [facility] Last Admin: 10/08/19 06:18 Dose: 1 applic Documented by: Vancomycin HCl (Vancomycin Oral Solution) 125 mg PO Q6HPO [facility] Last Admin: 10/08/19 06:18 Dose: 125 mg Documented by: - Objective Vital Signs: Vital Signs Temperature 98.0 F 10/08/19 12:00 Pulse Rate 88 10/08/19 12:15 Respiratory Rate 12 10/08/19 12:15 Blood Pressure 132/72 10/08/19 12:00 O2 Sat by Pulse Oximetry (%) 91 L 10/08/19 12:15 Constitutional: Yes: No Distress, Calm, Cachectic Cardiovascular: Yes: Regular Rate and Rhythm Respiratory: Yes: Regular, Mechanically Ventilated Labs: CBC, BMP 10/07/19 17:15 10/08/19 06:05 INR, PTT INR Cancelled 09/28/19 10:55 Problem List - Problems (1) UTI (urinary tract infection) Assessment/Plan: -UC: Microbiology 10/04/19 12:30 Stool Clostridioides difficile Antigen - Final 10/04/19 12:30 Stool Clostridioides difficile Toxin Assay - Final 09/28/19 10:55 Blood - Peripheral Venous Blood Culture - Final NO GROWTH AFTER 5 DAYS INCUBATION 09/28/19 10:55 Blood - Peripheral Venous Blood Culture - Final NO GROWTH AFTER 5 DAYS INCUBATION 09/28/19 11:15 Urine - Urine - Catheterized Urine Culture - Final Proteus Mirabilus - Esbl Produ Chryseobacterium Indologenes 2 Klebsiella Pneumoniae Group D Strep Or Entero Coccus 09/29/19 16:30 Sputum - Endotrachea Suction/Ventilator Gram Stain - Final 09/29/19 16:30 Sputum - Endotrachea Suction/Ventilator Sputum Culture - Final Pseudomonas Aeruginosa -IV Zosyn completed -ID consult -Afebrile Problems reviewed: Yes Code(s): N39.0 - URINARY TRACT INFECTION, SITE NOT SPECIFIED (2) Anemia Assessment/Plan: -Previously TAM on 09/15/19 -Started on Feosol BID -Venofer if BC negative -repeat Stool OB -Monitor trend -Transfuse only if Hg<7.0 to avoid fluid overload Problems reviewed: Yes Code(s): D64.9 - ANEMIA, UNSPECIFIED Qualifiers: (3) Chronic respiratory failure Assessment/Plan: -Pulmonary on board -Mech vent -not a candidate for weaning Problems reviewed: Yes Code(s): J96.10 - CHRONIC RESPIRATORY FAILURE, UNSP W HYPOXIA OR HYPERCAPNIA Qualifiers: (4) Malfunctioning jejunostomy tube Assessment/Plan: -Tolerating feeds through J tube Problems reviewed: Yes Code(s): K94.13 - ENTEROSTOMY MALFUNCTION (5) Pneumonia Assessment/Plan: -HOB elevated>30 degrees -IV Vanco -ID consult -febrile overnight, afebrile now -COVID 19 PCR negative -DO NOT USE G-TUBE for feeding -Elevate bed to 30-45 degrees for at least 30 mins after media theorist and author of Problems reviewed: Yes Code(s): J18.9 - PNEUMONIA, UNSPECIFIED ORGANISM Qualifiers: Pneumonia type: due to other aerobic Gram-negative bacteria Laterality: bilateral Lung location: lower lobe of lung Qualified Code(s): J15.6 - Pneumonia due to other Gram-negative bacteria (6) Cerebral palsy Problems reviewed: Yes Code(s): G80.9 - CEREBRAL PALSY, UNSPECIFIED Qualifiers: (7) Functional quadriplegia Problems reviewed: Yes Code(s): R53.2 - FUNCTIONAL QUADRIPLEGIA (8) Severe malnutrition Assessment/Plan: -Multivitamin -Prosource BID Problems reviewed: Yes Code(s): E43 - UNSPECIFIED SEVERE PROTEIN-CALORIE MALNUTRITION (9) C. difficile diarrhea Assessment/Plan: -oral Vancomycin for another 6 days -Rectal tube Problems reviewed: Yes Code(s): A04.72 - ENTEROCOLITIS D/T CLOSTRIDIUM DIFFICILE, NOT SPCF RECUR (10) Sepsis Assessment/Plan: -Cultures: Microbiology 10/04/19 12:30 Stool Clostridioides difficile Antigen - Final 10/04/19 12:30 Stool Clostridioides difficile Toxin Assay - Final 09/28/19 10:55 Blood - Peripheral Venous Blood Culture - Final NO GROWTH AFTER 5 DAYS INCUBATION 09/28/19 10:55 Blood - Peripheral Venous Blood Culture - Final NO GROWTH AFTER 5 DAYS INCUBATION 09/28/19 11:15 Urine - Urine - Catheterized Urine Culture - Final Proteus Mirabilus - Esbl Produ Chryseobacterium Indologenes 2 Klebsiella Pneumoniae Group D Strep Or Entero Coccus 09/29/19 16:30 Sputum - Endotrachea Suction/Ventilator Gram Stain - Final 09/29/19 16:30 Sputum - Endotrachea Suction/Ventilator Sputum Culture - Final Pseudomonas Aeruginosa -Completed [facility] Problems reviewed: Yes Code(s): A41.9 - SEPSIS, UNSPECIFIED ORGANISM Assessment/Plan See problem list COVID 19 PCR in preparation for discharge
--- NOTE | 2019-10-08 13:33 | PN ---
Progress Note, Physician Chief Complaint: Sepsis History of Present Illness: Seen and examined in the ICU on vent awake having diarrhea tolerating tube feeds - Current Medication List Current Medications: Active Medications Acetaminophen (Tylenol Oral Solution -) 650 mg GT Q4H PRN PRN Reason: PAIN 1-3 Albuterol Sulfate (Ventolin 0.083% Nebulizer Soln -) 1 amp NEB RQID [facility] Last Admin: 10/08/19 11:05 Dose: 1 amp Documented by: Amino Acids (Prosource No Carb Liquid Pkt) 30 ml PO BID@0800,1730 [facility] Last Admin: 10/08/19 10:20 Dose: 30 ml Documented by: Banana Based Medical Food (Banatrol Plus Powder Packet) 1 packet PO TID [facility] Last Admin: 10/08/19 06:18 Dose: 1 packet Documented by: Chlorhexidine Gluconate (Hibiclens For Decolonization -) 1 applic TP HS [facility] Last Admin: 10/07/19 21:57 Dose: 1 applic Documented by: Clonazepam (Klonopin -) 0.25 mg GT DAILY [facility] Last Admin: 10/08/19 10:21 Dose: 0.25 mg Documented by: Clotrimazole (Lotrisone Cream (Small Tube)) 1 applic TP BID [facility] Last Admin: 10/08/19 10:21 Dose: 1 applic Documented by: Collagenase (Santyl -) 1 applic TP DAILY [facility]; Protocol Last Admin: 10/08/19 10:21 Dose: 1 applic Documented by: Famotidine (Pepcid) 20 mg NGT BID [facility] Last Admin: 10/08/19 10:21 Dose: 20 mg Documented by: Ferrous Sulfate (Feosol) 300 mg GT BID [facility] Last Admin: 10/08/19 10:20 Dose: 300 mg Documented by: Heparin Sodium (Porcine) (Heparin -) 5,000 unit SQ BID [facility] Last Admin: 10/08/19 10:20 Dose: 5,000 unit Documented by: Lamotrigine (Lamictal -) 50 mg PO BID [facility] Last Admin: 10/08/19 10:21 Dose: 50 mg Documented by: Multivitamins/Minerals (Certavite-Antioxidant Liquid) 15 ml PO DAILY [facility] Last Admin: 10/08/19 10:20 Dose: 15 ml Documented by: Nystatin (Mycostatin Cream -) 1 applic TP TID [facility] Last Admin: 10/08/19 06:18 Dose: 1 applic Documented by: Vancomycin HCl (Vancomycin Oral Solution) 125 mg PO Q6HPO [facility] Last Admin: 10/08/19 06:18 Dose: 125 mg Documented by: - Objective Vital Signs: Vital Signs Temperature 98.0 F 10/08/19 12:00 Pulse Rate 88 10/08/19 12:15 Respiratory Rate 12 10/08/19 12:15 Blood Pressure 132/72 10/08/19 12:00 O2 Sat by Pulse Oximetry (%) 91 L 10/08/19 12:15 Constitutional: Yes: No Distress Edema: No Labs: CBC, BMP 10/07/19 17:15 10/08/19 06:05 INR, PTT INR Cancelled 09/28/19 10:55 Assessment/Plan 69 year old male with hitory of chronic respiratory failure on the vent, COPD, Parkinsons, seizure disorder, cerebral palsy who presented [place] with dislod[place] feeding tube and found to have suspected sepsis/shock and w/o means of enteral nutrition. 1. Sepsis/Shock 2. Dislodged feeding tube 3. Hypoalbuminemia/malnutrition 4. Hypomagnesemia 5. Anemia 6. C. diff colitis Renal function stable serum sodium downtrending, watch for now Serum Ca is now 11, ? etiology, was normal yesterday Trend Ca not on calcium supplements Tolerating tube feeds continue PO vanco will follow up as needed Thank you Mat Julian DO
[2019-10-08] MEDS: CHLORHEXIDINE GLUCONATE 4% CLEANSER FOR DECOLONIZATION TP SCH (22:45)
[2019-10-09] MEDS: VANCOMYCIN 250 MG/5 ML ORAL SOLUTION PO SCH ×3 (01:21→11:12)
[2019-10-09] MEDS ORDERED: PT OWN MED DRAWER 7, Y5N ONE ×3 (02:27→09:05)
[2019-10-09] MEDS: BANATROL PLUS POWDER PACKET PO SCH (06:47)
[2019-10-09] MEDS: NYSTATIN 100,000 UNIT/GM TOPICAL CREAM 15 GM TUBE TP SCH (06:47)
[2019-10-09] MEDS ORDERED: ACETAMINOPHEN 650 MG/20.3 ML ORAL SOLUTION (CUPS) GT PRN (07:03)
[2019-10-09] MEDS ORDERED: AMINO ACIDS/PROTEIN HYDROLYS 30 ML LIQUID.PKT PO SCH (08:00)
[2019-10-09] MEDS: ALBUTEROL SO4 0.083% IH SOL 2.5 MG/3 ML VIAL.NEB. NEB SCH ×2 (08:00→11:30)
[2019-10-09] MEDS ORDERED: FAMOTIDINE 40 MG/5 ML ORAL SUSPENSION NGT SCH (09:00)
--- NOTE | 2019-10-09 09:09 | DS ---
Physical Examination Vital Signs: Vital Signs Temperature 99.1 F 10/09/19 06:00 Pulse Rate 96 H 10/09/19 08:27 Respiratory Rate 21 H 10/09/19 08:27 Blood Pressure 137/72 10/09/19 06:00 O2 Sat by Pulse Oximetry (%) 98 10/09/19 08:44 Cardiovascular: Yes: S1, S2 Respiratory: Yes: Regular, CTA Bilaterally Gastrointestinal: Yes: Normal Bowel Sounds, Soft, Other (j tube and g-tube noted). No: Tenderness Labs: CBC, BMP 10/07/19 17:15 10/08/19 06:05 Discharge Summary Problems reviewed: Yes Reason For Visit: UTI SEPSIS PNEUMONIA Current Active Problems C. difficile diarrhea (Acute) Dislodged jejunostomy tube (Acute) Fever (Acute) Malfunctioning jejunostomy tube (Acute) Sepsis (Acute) UTI (urinary tract infection) (Acute) Hospital Course: - Problems (1) UTI (urinary tract infection) Assessment/Plan: -UC: Microbiology 10/04/19 12:30 Stool Clostridioides difficile Antigen - Final 10/04/19 12:30 Stool Clostridioides difficile Toxin Assay - Final 09/28/19 10:55 Blood - Peripheral Venous Blood Culture - Final NO GROWTH AFTER 5 DAYS INCUBATION 09/28/19 10:55 Blood - Peripheral Venous Blood Culture - Final NO GROWTH AFTER 5 DAYS INCUBATION 09/28/19 11:15 Urine - Urine - Catheterized Urine Culture - Final Proteus Mirabilus - Esbl Produ Chryseobacterium Indologenes 2 Klebsiella Pneumoniae Group D Strep Or Entero Coccus 09/29/19 16:30 Sputum - Endotrachea Suction/Ventilator Gram Stain - Final 09/29/19 16:30 Sputum - Endotrachea Suction/Ventilator Sputum Culture - Final Pseudomonas Aeruginosa -IV Zosyn completed -ID consult -Afebrile Problems reviewed: Yes Code(s): N39.0 - URINARY TRACT INFECTION, SITE NOT SPECIFIED (2) Anemia Assessment/Plan: -Previously TAM on 09/15/19 -Started on Feosol BID -Venofer if BC negative -repeat Stool OB -Monitor trend -Transfuse only if Hg<7.0 to avoid fluid overload Problems reviewed: Yes Code(s): D64.9 - ANEMIA, UNSPECIFIED Qualifiers: (3) Chronic respiratory failure Assessment/Plan: -Pulmonary on board -Mech vent -not a candidate for weaning Problems reviewed: Yes Code(s): J96.10 - CHRONIC RESPIRATORY FAILURE, UNSP W HYPOXIA OR HYPERCAPNIA Qualifiers: (4) Malfunctioning jejunostomy tube Assessment/Plan: -Tolerating feeds through J tube Problems reviewed: Yes Code(s): K94.13 - ENTEROSTOMY MALFUNCTION (5) Pneumonia Assessment/Plan: -HOB elevated>30 degrees -IV Vanco -ID consult -febrile overnight, afebrile now -COVID 19 PCR negative -DO NOT USE G-TUBE for feeding -Elevate bed to 30-45 degrees for at least 30 mins after medical videographer Problems reviewed: Yes Code(s): J18.9 - PNEUMONIA, UNSPECIFIED ORGANISM Qualifiers: Pneumonia type: due to other aerobic Gram-negative bacteria Laterality: bilateral Lung location: lower lobe of lung Qualified Code(s): J15.6 - Pneumonia due to other Gram-negative bacteria (6) Cerebral palsy Problems reviewed: Yes Code(s): G80.9 - CEREBRAL PALSY, UNSPECIFIED Qualifiers: (7) Functional quadriplegia Problems reviewed: Yes Code(s): R53.2 - FUNCTIONAL QUADRIPLEGIA (8) Severe malnutrition Assessment/Plan: -Multivitamin -Prosource BID Problems reviewed: Yes Code(s): E43 - UNSPECIFIED SEVERE PROTEIN-CALORIE MALNUTRITION (9) C. difficile diarrhea Assessment/Plan: -oral Vancomycin for another 6 days -Rectal tube Problems reviewed: Yes Code(s): A04.72 - ENTEROCOLITIS D/T CLOSTRIDIUM DIFFICILE, NOT SPCF RECUR (10) Sepsis Assessment/Plan: -Cultures: Microbiology 10/04/19 12:30 Stool Clostridioides difficile Antigen - Final 10/04/19 12:30 Stool Clostridioides difficile Toxin Assay - Final 09/28/19 10:55 Blood - Peripheral Venous Blood Culture - Final NO GROWTH AFTER 5 DAYS INCUBATION 09/28/19 10:55 Blood - Peripheral Venous Blood Culture - Final NO GROWTH AFTER 5 DAYS INCUBATION 09/28/19 11:15 Urine - Urine - Catheterized Urine Culture - Final Proteus Mirabilus - Esbl Produ Chryseobacterium Indologenes 2 Klebsiella Pneumoniae Group D Strep Or Entero Coccus 09/29/19 16:30 Sputum - Endotrachea Suction/Ventilator Gram Stain - Final 09/29/19 16:30 Sputum - Endotrachea Suction/Ventilator Sputum Culture - Final Pseudomonas Aeruginosa -Completed zosyn Problems reviewed: Yes Code(s): A41.9 - SEPSIS, UNSPECIFIED ORGANISM - Instructions Referrals: Nicola Gomez MD [Primary Care Provider] - - Home Medications Comprehensive Discharge Medication List: Ambulatory Orders Lactobacillus Acidophilus [Acidophilus] 1 each PO DAILY 07/23/19 Famotidine [Pepcid] 20 mg NGT BID oral.susp 07/28/19 Acetaminophen Oral Solution [Tylenol Oral Solution -] 650 mg GT Q4H PRN soln.oral 09/17/19 Heparin - 5,000 unit SQ BID vial 09/17/19 Lamotrigine [Lamictal -] 50 mg PO BID tablet 09/17/19 Ferrous Sulfate [Feosol] 300 mg GT DAILY 09/28/19 Multivit-Minerals [Certavite-Antioxidant Liquid] 1 cup GT DAILY 09/28/19 Nystatin Cream [Mycostatin Cream -] 100,000 units TP TID 09/28/19 Omeprazole Pediatric Solution [Omeprazole Pediatric Oral Solution] 20 ml GT DAILY 09/28/19 clonazePAM [Klonopin -] 0.25 mg GT DAILY 09/28/19
[2019-10-09] MEDS: CLOTRIMAZOLE/BETAMET DIPROP 15 GM TUBE TP SCH (09:11)
[2019-10-09 09:57] LABS: POTASSIUM 5.2 mmol/L (3.5-5.1)
[2019-10-09] MEDS ORDERED: FERROUS SO4 300 MG/5 ML ORAL SOLN UNIT DOSE CUPS GT SCH (10:00)
[2019-10-09] MEDS ORDERED: clonazePAM 0.5 MG TABLET GT SCH (10:00)
[2019-10-09] MEDS ORDERED: lamoTRIgine 25 MG TABLET PO SCH (10:00)
[2019-10-09] MEDS ORDERED: HEPARIN NA (PORCINE) 5,000 UNITS/ML 1ML VIAL SQ SCH (10:00)
[2019-10-09] MEDS ORDERED: MULTIVIT-MINERALS ORAL LIQUID PO SCH (10:00)
[2019-10-09 10:06] LABS: BLOOD UREA NITROGEN 12.3 mg/dL (7-18); CALCIUM 11.2 mg/dL (8.5-10.1); CREATININE 0.4 mg/dL (0.55-1.3)
[2019-10-09] MEDS: COLLAGENASE CLOSTRIDIUM HIST. 30 GRAMS TUBE TP SCH (11:10)
[2019-10-09 11:36] VITALS: BP 131/73; PULSE 98; TEMP 98.1
--- NOTE | 2019-10-09 12:50 | PN ---
Progress Note, Physician Chief Complaint: Sepsis History of Present Illness: Seen and examined in the ICU on vent awake on tube feeds - Current Medication List Current Medications: Active Medications Acetaminophen (Tylenol Oral Solution -) 650 mg GT Q4H PRN PRN Reason: PAIN 1-3 Albuterol Sulfate (Ventolin 0.083% Nebulizer Soln -) 1 amp NEB RQID [facility] Last Admin: 10/09/19 11:30 Dose: 1 amp Documented by: Amino Acids (Prosource No Carb Liquid Pkt) 30 ml PO BID@0800,1730 [facility] Last Admin: 10/09/19 09:11 Dose: 30 ml Documented by: Banana Based Medical Food (Banatrol Plus Powder Packet) 1 packet PO TID [facility] Last Admin: 10/09/19 06:47 Dose: 1 packet Documented by: Clonazepam (Klonopin -) 0.25 mg GT DAILY [facility] Last Admin: 10/09/19 09:09 Dose: 0.25 mg Documented by: Clotrimazole (Lotrisone Cream (Small Tube)) 1 applic TP BID [facility] Last Admin: 10/09/19 09:11 Dose: 1 applic Documented by: Collagenase (Santyl -) 1 applic TP DAILY [facility]; Protocol Last Admin: 10/09/19 11:10 Dose: 1 applic Documented by: Famotidine (Pepcid) 20 mg NGT BID@0900,1700 [facility] Last Admin: 10/09/19 09:10 Dose: 20 mg Documented by: Ferrous Sulfate (Feosol) 300 mg GT BID [facility] Last Admin: 10/09/19 09:11 Dose: 300 mg Documented by: Heparin Sodium (Porcine) (Heparin -) 5,000 unit SQ BID [facility] Last Admin: 10/09/19 09:11 Dose: 5,000 unit Documented by: Lamotrigine (Lamictal -) 50 mg PO BID [facility] Last Admin: 10/09/19 11:10 Dose: 50 mg Documented by: Multivitamins/Minerals (Certavite-Antioxidant Liquid) 15 ml PO DAILY [facility] Last Admin: 10/09/19 09:10 Dose: 15 ml Documented by: Nystatin (Mycostatin Cream -) 1 applic TP TID [facility] Vancomycin HCl (Vancomycin Oral Solution) 125 mg PO Q6HPO [facility] Last Admin: 10/09/19 11:12 Dose: 125 mg Documented by: - Objective Vital Signs: Vital Signs Temperature 98.1 F 10/09/19 10:00 Pulse Rate 98 H 10/09/19 10:00 Respiratory Rate 19 10/09/19 11:28 Blood Pressure 131/73 10/09/19 10:00 O2 Sat by Pulse Oximetry (%) 96 10/09/19 12:00 Constitutional: Yes: No Distress Respiratory: Yes: Mechanically Ventilated Edema: No Labs: CBC, BMP 10/07/19 17:15 10/09/19 08:15 INR, PTT INR Cancelled 09/28/19 10:55 Assessment/Plan 69 year old male with hitory of chronic respiratory failure on the vent, COPD, Parkinsons, seizure disorder, cerebral palsy who presented from [place] with dislodged feeding tube and found to have suspected sepsis/shock and w/o means of enteral nutrition. 1. Sepsis/Shock 2. Dislodged feeding tube 3. Hypoalbuminemia/malnutrition 4. Hypomagnesemia 5. Anemia 6. C. diff colitis Renal function stable serum sodium stable Mild hypercalcemia persists, will need outpatient work up including PTH, Vit D levels no emergent intervention needed avoid calcium supplements Trend Ca Tolerating tube feeds continue PO vanco will follow up as needed Thank you Mat Julian DO
--- NOTE | 2019-10-09 13:21 | PN ---
Progress Note (short form) - Note Progress Note: PULMONARY AWAKE// CHART REVIEWED VSS/AFEBRILE Gen: vented, awake Heart: RRR Lung: decreased breath sounds at the bases Abd: soft, nontender EXT NO EDEMA ASSESSMENT AND PLAN: C diff Colitis UTI Pneumonia Sacral Decubitus Ulcer Sepsis Seizure Disorder Schizophrenia HTN Anemia - continue volume assist control - enteral feeds - DVT/GI prophylaxis - can d/c back to SNF Justin LOBO MD
[2019-10-09] MEDS ORDERED: NYSTATIN 100,000 UNIT/GM TOPICAL CREAM 15 GM TUBE TP SCH (14:00)
[2019-10-09] MEDS ORDERED: CHLORHEXIDINE GLUCONATE 4% CLEANSER FOR DECOLONIZATION TP SCH (22:00)
== END 2019-10-09 13:30 | DRG 870 ==
LOC: JER 09:58 → JERBED 15:57 → JICU 09-29 02:28 → J5S 10-09 00:31
PROVIDERS: ADMIT Family Medicine; ATTEND Family Medicine
PROC: 05HN33Z Insertion of Infusion Device into Left Internal Jugular Vein, Percutaneous Approach (ICD-10-PCS; principal; 2019-09-29)
PROC: 5A1955Z Respiratory Ventilation, Greater than 96 Consecutive Hours (ICD-10-PCS; 2019-09-29)
PROC: B544ZZA Ultrasonography of Left Jugular Veins, Guidance (ICD-10-PCS; 2019-09-29)
PROC: 0D2DXUZ Change Feeding Device in Lower Intestinal Tract, External Approach (ICD-10-PCS; 2019-09-30)
DX: A41.50 Gram-negative sepsis, unspecified (principal); L89.513 Pressure ulcer of right ankle, stage 3; L89.103 Pressure ulcer of unspecified part of back, stage 3; R53.2 Functional quadriplegia; R65.21 Severe sepsis with septic shock; J69.0 Pneumonitis due to inhalation of food and vomit; E43 Unspecified severe protein-calorie malnutrition; N39.0 Urinary tract infection, site not specified; K94.13 Enterostomy malfunction; J96.10 Chronic respiratory failure, unspecified whether with hypoxia or hypercapnia; A04.72 Enterocolitis due to Clostridium difficile, not specified as recurrent; Z68.1 Body mass index [BMI] 19.9 or less, adult; T85.528A Displacement of other gastrointestinal prosthetic devices, implants and grafts, initial encounter; Z16.35 Resistance to multiple antimicrobial drugs; G20 Parkinson's disease; F20.9 Schizophrenia, unspecified; G80.9 Cerebral palsy, unspecified; B96.1 Klebsiella pneumoniae [K. pneumoniae] as the cause of diseases classified elsewhere; B95.2 Enterococcus as the cause of diseases classified elsewhere; J44.9 Chronic obstructive pulmonary disease, unspecified; G40.909 Epilepsy, unspecified, not intractable, without status epilepticus; K21.9 Gastro-esophageal reflux disease without esophagitis; D50.9 Iron deficiency anemia, unspecified; F02.80 Dementia in other diseases classified elsewhere, unspecified severity, without behavioral disturbance, psychotic disturbance, mood disturbance, and anxiety; R13.10 Dysphagia, unspecified; E83.42 Hypomagnesemia; Y83.8 Other surgical procedures as the cause of abnormal reaction of the patient, or of later complication, without mention of misadventure at the time of the procedure; Z93.0 Tracheostomy status
CPT/HCPCS: 36415; 49451; 49465; 71045-TC-FY; 71250-TC; 74177-TC; 76000-TC-FY; 80048; 80053; 81003; 82803; 82962; 83605; 83735; 84100; 84443; 84484; 85025; 85027; 87040; 87070; 87077; 87086; 87186; 87205; 87324; 87449; 93005; 93010; 94002; 94640; 99284-25; 99291; J0131; J1644; Q9967; U0003

== ENCOUNTER 2019-10-10 20:26 | Observation (INO) | payer OTHER ==
--- NOTE | 2019-10-10 21:33 | PDOC ---
History of Present Illness - General Chief Complaint: G Tube Problem Stated Complaint: J-TUBBED CLOGGED Time Seen by Provider: 10/10/19 20:47 - History of Present Illness Initial Comments: 10/10/19 21:28 HPI: 69 y/o M with hx of COPD, Parkinsons, Schizophrenia, cerebral palsy, trach dependent, J tube dependent with venting G tube BIBEMS from [place] for clogged j- tubed. Attempted to call [facility] multiple times for collateral information but no response. Patient cannot provide additional information. PMHx: as noted above ROS: as noted SHx: n/a Allergies: NKDA ROS: limited 2/2 mental status PE: GENERAL: Awake, does not respond or follow commands, cachectic HEAD: No signs of trauma, normocephalic, atraumatic EYES: EOMI, sclera anicteric, conjunctiva clear ENT: Auricles normal inspection, hearing grossly normal, nares patent, oropharynx clear without exudates. Moist mucosa NECK: no lymphadenopathy, trach without evidence of bleeding or infection LUNGS: No increased work of breathing, symmetrical chest rise, trached on vent HEART: tachcyardic ABDOMEN: Soft, nondistended, venting G tube and feeding J tube, G tube sit loosened with bumper given extra slack, severely irritated skin surrounding G tube site with gastric fluid MUSCULOSKELETAL: contracted limbs with no purposeful movement NEUROLOGICAL: limited 2/2 mental status SKIN: irritated skin around Gtube site, midline back with stage 3 ulcer, no purulence but erythematous Past History - Medical History Allergies/Adverse Reactions: Allergies Allergy/AdvReac Type Severity Reaction Status Date / Time No Known Allergies Allergy Verified 10/10/19 20:41 Home Medications: Ambulatory Orders Lactobacillus Acidophilus [Acidophilus] 1 each PO DAILY 07/23/19 Famotidine [Pepcid] 20 mg NGT BID oral.susp 07/28/19 Acetaminophen Oral Solution [Tylenol Oral Solution -] 650 mg GT Q4H PRN soln.oral 09/17/19 Heparin - 5,000 unit SQ BID vial 09/17/19 Lamotrigine [Lamictal -] 50 mg PO BID tablet 09/17/19 Ferrous Sulfate [Feosol] 300 mg GT DAILY 09/28/19 Multivit-Minerals [Certavite-Antioxidant Liquid] 1 cup GT DAILY 09/28/19 Nystatin Cream [Mycostatin Cream -] 100,000 units TP TID 09/28/19 Omeprazole Pediatric Solution [Omeprazole Pediatric Oral Solution] 20 ml GT DAILY 09/28/19 clonazePAM [Klonopin -] 0.25 mg GT DAILY 09/28/19 Asthma: Yes COPD: Yes (resp failure,trach-vent dependent,pneumonia) GI Disorders: (pt has a jtube that is clamped and a dislodged gtu be,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) HTN: Yes Psychiatric Problems: Yes (schizopfrenia) Seizures: Yes - Surgical History Abdominal Surgery: Yes (G tube and J tube) - Immunization History Immunization Up to Date: Yes - Psycho-Social/Smoking History Smoking History: Unknown if ever smoked Have you smoked in the past 12 months: No Information on smoking cessation initiated: No - Substance Abuse Hx (Audit-C & DAST Scrn) How often the patient has a drink containing alcohol: Never Score: In Men: 4 or > Positive; In Women: 3 or > Positive: 0 Screen Result (Pos requires Nsg. Audit-10AR): Negative In the last yr the pt used illegal drug/Rx for NonMed reason: No Score: Yes response is considered Positive: 0 Screen Result (Positive result requires Nsg. DAST-10): Negative *Physical Exam - Vital Signs Last Vital Signs Temp Pulse Resp BP Pulse Ox 99.3 F 114 H 17 108/66 94 L 10/10/19 20:41 10/10/19 20:52 10/10/19 20:45 10/10/19 20:41 10/10/19 20:52 ED Treatment Course - LABORATORY CBC & Chemistry Diagram: 10/10/19 21:46 10/10/19 21:46 - RADIOLOGY Radiology Studies Ordered: Category Date Time Status CXRPORT [CHEST X-RAY PORTABLE*] [RAD] Stat Radiology 10/10/19 21:17 Ordered Medical Decision Making - Medical Decision Making 10/10/19 21:33 69 y/o M with hx of COPD, Parkinsons, Schizophrenia, cerebral palsy, trach dependent, J tube dependent with venting G tube BIBEMS from [facility] for clogged j- tubed. HR 114, AF. PE with irritated skin around G tube site and stage 3 mid back ulcer with ertyhema -cbc, cmp, coags, ekg, cxr -attempted to flush J tube without success -will admit for J tube clogged, back ulcer, g tube malfunction 10/10/19 23:[address] rollins Discharge - Discharge Information Problems reviewed: Yes Clinical Impression/Diagnosis: Malfunction of gastrostomy tube, Malfunction of jejunostomy tube Pressure ulcer of back Qualifiers: Pressure injury stage: stage 3 Qualified Code(s): L89.103 - Pressure ulcer of unspecified part of back, stage 3 - Admission Yes - Follow up/Referral Referrals: ON STAFF,NOT [Primary Care Provider] - - Patient Discharge Instructions - Post Discharge Activity
[2019-10-10 22:05] LABS: BASO % 1.1 % (0-2.0); HEMOGLOBIN 10.3 GM/dL (11.7-16.9); LYMPH % 18.2 % (8-40); MCH 28.1 pg (25.7-33.7); MCHC 32.3 g/dl (32.0-35.9); MEAN PLT VOLUME 6.6 fl (7.5-11.1); MONO % 6.1 % (3.8-10.2); NEUT % 72.6 % (42.8-82.8); PLATELET COUNT 878 K/MM3 (134-434); RBC 3.67 M/mm3 (4.00-5.60); RDW 18.6 % (11.9-15.9); WHITE BLOOD COUNT 10.1 K/mm3 (4.0-10.0)
[2019-10-10 22:30] LABS: ALBUMIN 1.9 g/dl (3.4-5.0); BILIRUBIN,TOTAL 0.3 mg/dL (0.2-1); BLOOD UREA NITROGEN 16.4 mg/dL (7-18); CALCIUM 11.2 mg/dL (8.5-10.1); CREATININE 0.5 mg/dL (0.55-1.3); MAGNESIUM 2.1 mg/dL (1.8-2.4); PHOSPHOROUS 2.6 mg/dL (2.5-4.9); POTASSIUM 4.8 mmol/L (3.5-5.1)
[2019-10-10 22:53] LABS: PLATELET ESTIMATE INCREASED
--- NOTE | 2019-10-10 23:19 | PN ---
Teaching Attending Note Name of Resident: Rabia Amaya ATTENDING PHYSICIAN STATEMENT I saw and evaluated the patient. I reviewed the resident's note and discussed the case with the resident. I agree with the resident's findings and plan as documented. SUBJECTIVE: Patient is a 69 year old man with a PMH of COPD, Cerebral palsy, Parkinsons disease, Schizophrenia, Ventilator-dependent via tracheostomy, G and J tube placement, and recent admission (09/27- for dislodged J tube and sepsis) who presents to the ER with via EMS from [facility] with a clogged J tube. History is limited secondary to the patient's clinical condition. Patient cannot provide additional information. No reported alcohol, tobacco or illicit drug use. No reported recent travels. No reported relevant family history. OBJECTIVE: Alert Vital Signs Period Temp Pulse Resp BP Sys/Gomez Pulse Ox Last 24 Hr 99.3 F 114-114 14-17 108/66 94-96 HEENT: No Jaundice, eye redness or discharge, PERRLA, EOMI. Normocephalic, atraumatic. External ears are normal. No nasal discharge. Neck: Supple, nontender. Tracheostomy in place. No palpable adenopathy or thyro megaly. No JVD Chest: Good effort. Clear to auscultation and percussion. Heart: Regular. No S3, rub or murmur Abdomen: Not distended, soft, nontender and no HSM. No rebound or guarding. Normal bowel sounds. G tube and feeding J tube in place; G tube sit loose with surrounding irritated skin Ext: Peripheral pulses intact. No leg edema. Skin: Warm and dry. No petechiae, rash or ecchymosis. Midback stage 3 decubitus ulcer - no discharge, surrounding erythema. Neuro: Alert. Unable to follow commands. Withdraws to noxious stimuli. Psych: Unable to assess. Current Medications Generic Name Dose Route Start Last Admin Trade Name Freq PRN Reason Stop Dose Admin Heparin Sodium (Porcine) 5,000 unit 10/11/19 02:00 Heparin - SQ Q8H-IV [facility] Dextrose/Sodium Chloride 1,000 mls @ 42 mls/hr 10/11/19 00:30 D5-Ns - IV ASDIR [facility] Home Medications Medication Instructions Recorded Acetaminophen [Tylenol] 650 mg PO TID 10/11/19 Collagenase Clostridium Hist. 1 applic TP 10/11/19 [Santyl -] Famotidine [Pepcid] 20 mg PO DAILY 10/11/19 Ferrous Sulfate [Feosol] 300 mg GT DAILY 10/11/19 Heparin - 5,000 unit SQ BID 10/11/19 L. Acidophilus/Pectin, [place] 1 each PO DAILY 10/11/19 [Acidophilus Capsule] Lamotrigine [Lamotrigine ER] 50 mg PO BID 10/11/19 Multivit-Minerals 15 ml PO DAILY 10/11/19 [Certavite-Antioxidant Liquid] Nystatin Cream [Mycostatin Cream -] 1 applic BID 10/11/19 Omeprazole 20 mg PO DAILY 10/11/19 Silver Sulfadiazine [Silvadene] 1 applic TP 10/11/19 clonazePAM [Klonopin -] 0.5 mg PO DAILY 10/11/19 Abnormal Lab Results 10/10/19 10/10/19 21:46 21:46 WBC 10.1 H RBC 3.67 L Hgb 10.3 L Hct 32.0 L D RDW 18.6 H Plt Count 878 H MPV 6.6 L Sodium 135 L Anion Gap 6 L Creatinine 0.5 L Calcium 11.2 H Albumin 1.9 L ASSESSMENT AND PLAN: 1. J tube malfunction/Back ulcer - Will consult IR for J tube malfunction and provide daily wound care. Consult Wound care service. Thrombocytosis likely related to ?iron deficiency anemia - will monitor closely. Will hydrate with IV NS to address hypercalcemia, check phosphate and PTH. Provide high grade iron supplementation to correct anemia. CXR shows tracheostomy, left lower base consolidation/atelectasis and mild pleural effusion. Viral testing for COVID-19 ordered and patient placed on airborne, droplet and contact isolation. EKG and INR pending. Will continue comprehensive care for all of patients comorbid conditions. 2. Hypoalbuminemia - Possibly due to combined effects of severe malnutrition and inflammation associated with comorbid conditions. Will ensure adequate dietary protein intake and also consult jukebox route driver. 3. DVT prophylaxis - Lovenox 40 mg SQ q 24 hours. 4. Advance directives - Full code
[2019-10-10] MEDS ORDERED: SODIUM CHLORIDE 1,000 ML IV STA (23:21)
--- NOTE | 2019-10-11 00:26 | PDOC ---
Documentation entered by Jose Delacruz SCRIBE, acting as scribe for Lashell Lowery MD. Lashell Lowery MD: This documentation has been prepared by the Jayme stubbs Nirvannie, SCRIBE, under my direction and personally reviewed by me in its entirety. I confirm that the documentation accurately reflects all work, treatment, procedures, and medical decision making performed by me. Attending Attestation - Resident Resident Name: Stewart Carpenter - ED Attending Attestation I have performed the following: I have examined & evaluated the patient, The case was reviewed & discussed with the resident, I agree w/resident's findings & plan, Exceptions are as noted - HPI HPI: 10/10/19 22:00 The patient is a 69 year old female with a significant past medical history of COPD, cerebral palsy, parkinsons, schizophrenia, s/p trach, s/p G and J tube (placed 09/29), and recent admission (09/27- for dislodged J tube and sepsis) who presents to the ED with via EMS from [facility] with a clogged J tube. History is limited secondary to the patient's clinical condition. Allergies: NKDA - Physicial Exam PE: 10/10/19 23:09 GENERAL: Awake, alert, nonverbal, in no acute distress HEAD: No signs of trauma EYES: PERRLA, EOMI, sclera anicteric, conjunctiva clear ENT: Auricles normal inspection, hearing grossly normal, nares patent, oropharynx clear without exudates. Moist mucosa LUNGS: +Vent in place. Breath sounds equal, clear to auscultation bilaterally. No wheezes, and no crackles HEART: Regular rate and rhythm, normal S1 and S2, no murmurs, rubs or gallops ABDOMEN: +J and G tube. G tube leaking green gastric discharge with surrounding erythema and broken skin. Herpatic vesicles surrounding the g tube. Soft, nontender. BACK: +2 inch circular Stage 3-4 ulcer to the right mid paraspinal back. EXTREMITIES: Contracted extremities. NEUROLOGICAL: Nonverbal. Awake, alert. - Medical Decision Making 10/10/19 22:51 Pt has leakage of his Gastric acid onto his abdomen and a macerated bright red irritation all about the tibe Pt has a stage 3-4 ulcer on his left mid back that is not documented in NH notes. 10/11/19 01:01 Pt will be admitted for his blocked j tube and for eval of his skin lesions 10/11/19 02:18 labs normal Discharge - Discharge Information Problems reviewed: Yes Clinical Impression/Diagnosis: Malfunction of gastrostomy tube, Malfunction of jejunostomy tube Pressure ulcer of back Qualifiers: Pressure injury stage: stage 3 Qualified Code(s): L89.103 - Pressure ulcer of unspecified part of back, stage 3 - Follow up/Referral - Patient Discharge Instructions - Post Discharge Activity
--- NOTE | 2019-10-11 00:46 | HP ---
HISTORY OF PRESENT ILLNESS: Patient is a 69 year old man with a PMH of COPD, Cerebral palsy, Parkinsons disease, Schizophrenia, Ventilator-dependent via tracheostomy, G and J tube placement, and recent admission (09/27- for dislodged J tube and urosepsis, PNA) who presents to the ER with via EMS from [facility] with a clogged J tube. History is limited secondary to the patient's clinical condition. Patient cannot provide additional information. No reported alcohol, tobacco or illicit drug use. No reported recent travels. No reported relevant family history. 1 L NS bolus PAST MEDICAL HISTORY: per HPI Social History: Smoking:n/a Alcohol: n/a Drugs: n/a Allergies No Known Allergies Allergy (Verified 10/10/19 20:41) HOME MEDICATIONS: Home Medications Medication Instructions Recorded Acetaminophen [Tylenol] 650 mg PO TID 10/11/19 Collagenase Clostridium Hist. 1 applic TP 10/11/19 [Santyl -] Famotidine [Pepcid] 20 mg PO DAILY 10/11/19 Ferrous Sulfate [Feosol] 300 mg GT DAILY 10/11/19 Heparin - 5,000 unit SQ BID 10/11/19 L. Acidophilus/Pectin, [place] 1 each PO DAILY 10/11/19 [Acidophilus Capsule] Lamotrigine [Lamotrigine ER] 50 mg PO BID 10/11/19 Multivit-Minerals 15 ml PO DAILY 10/11/19 [Certavite-Antioxidant Liquid] Nystatin Cream [Mycostatin Cream -] 1 applic BID 10/11/19 Omeprazole 20 mg PO DAILY 10/11/19 Silver Sulfadiazine [Silvadene] 1 applic TP 10/11/19 clonazePAM [Klonopin -] 0.5 mg PO DAILY 10/11/19 REVIEW OF SYSTEMS unable to obtain PHYSICAL EXAMINATION Vital Signs - 24 hr 10/10/19 10/10/19 10/10/19 20:41 20:45 20:52 Temperature 99.3 F Pulse Rate 114 H 114 H Respiratory 14 17 Rate Blood Pressure 108/66 O2 Sat by Pulse 94 L 94 L 94 L Oximetry (%) 10/11/19 00:23 Temperature Pulse Rate Respiratory 14 Rate Blood Pressure O2 Sat by Pulse 96 Oximetry (%) GENERAL: nonverbal EYES: Pupils equal, round and reactive to light EARS, NOSE, THROAT: Dry mucous membranes NECK: supple LUNGS: course breath sounds HEART: tachy, normal S1 and S2 without murmur, rub or gallop. ABDOMEN: +jtube with erythema surrounding LOWER EXTREMITIES: 2+ pulses, No peripheral edema. +stage 4 sacral decubitus, no purulence Laboratory Results - last 24 hr 10/10/19 10/10/19 21:46 21:46 WBC 10.1 H RBC 3.67 L Hgb 10.3 L Hct 32.0 L D MCV 87.0 MCH 28.1 MCHC 32.3 RDW 18.6 H Plt Count 878 H MPV 6.6 L Absolute Neuts (auto) 7.4 Neutrophils % 72.6 Neutrophils % (Manual) 68.0 Band Neutrophils % 2.0 Lymphocytes % 18.2 Lymphocytes % (Manual) 25.0 D Monocytes % 6.1 Monocytes % (Manual) 5 Eosinophils % 2.0 Eosinophils % (Manual) 0.0 D Basophils % 1.1 Basophils % (Manual) 0.0 Nucleated RBC % 0 Platelet Estimate Increased Platelet Comment No clotting detected Sodium 135 L Potassium 4.8 Chloride 100 Carbon Dioxide 30 Anion Gap 6 L BUN 16.4 Creatinine 0.5 L Est GFR (CKD-EPI)AfAm 128.15 Est GFR (CKD-EPI)NonAf 110.57 Random Glucose 88 Calcium 11.2 H Phosphorus 2.6 Magnesium 2.1 Total Bilirubin 0.3 AST 26 ALT 23 Alkaline Phosphatase 112 Total Protein 7.0 Albumin 1.9 L ASSESSMENT/PLAN: 69 year old man with a PMH of COPD, Cerebral palsy, Parkinsons disease, Schizophrenia, Ventilator-dependent via tracheostomy, G and J tube placement, and recent admission (09/27- for dislodged J tube and sepsis) who presents to the ER with via EMS from [facility] with a clogged J tube. #Clogged J tube -IR consult -npo -IV fluids gentle hydration #Left Lung consolidation -CXR with Left lung consolidation. Small left pleural effusion. -was recently discharged and completed IV abx for PNA -will observe off antibiotics at this time -can consider ID consult #Iron deficiency anemia #thrombocythemia -above baseline, likely dehydrated #CP, Parksinsons, schizophrenia -npo now, will resume meds pending IR #FEN -IV fluids -monitor -npo #dvt ppx -hep sq dispo: obs Visit type - Emergency Visit Emergency Visit: Yes ED Registration Date: 10/10/19 Care time: The patient presented to the Emergency Department on the above date and was hospitalized for further evaluation of their emergent condition. - New Patient This patient is new to me today: Yes Date on this admission: 10/11/19 - Critical Care Critical Care patient: No ATTENDING PHYSICIAN STATEMENT I saw and evaluated the patient. I reviewed the resident's note and discussed the case with the resident. I agree with the resident's findings and plan as documented. SUBJECTIVE: OBJECTIVE: ASSESSMENT AND PLAN:
[2019-10-11] MEDS: DEXTROSE 5%-NORMAL SALINE 1,000 ML IV SCH ×2 (03:36→16:34)
[2019-10-11] MEDS ORDERED: HEPARIN NA (PORCINE) 5,000 UNITS/ML 1ML VIAL ONE (06:08)
[2019-10-11] MEDS: HEPARIN NA (PORCINE) 5,000 UNITS/ML 1ML VIAL SQ SCH ×3 (06:23→21:31)
[2019-10-11 06:55] LABS: ALBUMIN 1.5 g/dl (3.4-5.0); BILIRUBIN,TOTAL 0.5 mg/dL (0.2-1); BLOOD UREA NITROGEN 14.5 mg/dL (7-18); CALCIUM 10.6 mg/dL (8.5-10.1); CREATININE 0.4 mg/dL (0.55-1.3); PHOSPHOROUS 2.5 mg/dL (2.5-4.9); POTASSIUM 4.6 mmol/L (3.5-5.1); TOT PROT 5.9 g/dl (6.4-8.2)
[2019-10-11 07:13] LABS: BASO % 0.6 % (0-2.0); EOS % 1.9 % (0-4.5); HEMATOCRIT 26.5 % (35.4-49); HEMOGLOBIN 8.5 GM/dL (11.7-16.9); LYMPH % 19.6 % (8-40); MCH 27.7 pg (25.7-33.7); MEAN CELL VOLUME 86.4 fl (80-96); MONO % 8.1 % (3.8-10.2); NEUT % 69.8 % (42.8-82.8); PLATELET COUNT 772 K/MM3 (134-434); RBC 3.07 M/mm3 (4.00-5.60); RDW 18.8 % (11.9-15.9)
[2019-10-11 09:02] LABS: ANISOCYTOSIS 1+; MACROCYTOSIS 0; PLATELET ESTIMATE INCREASED
--- NOTE | 2019-10-11 14:39 | EKG ---
Test Reason : Blood Pressure : / mmHG Vent. Rate : 115 BPM Atrial Rate : 115 BPM P-R Int : 162 ms QRS Dur : 084 ms QT Int : 316 ms P-R-T Axes : 051 054 057 degrees QTc Int : 437 ms POOR DATA QUALITY, INTERPRETATION MAY BE ADVERSELY AFFECTED SINUS TACHYCARDIA WITH OCCASIONAL PREMATURE VENTRICULAR COMPLEXES INFERIOR INFARCT ANTEROLATERAL INFARCT ABNORMAL ECG Confirmed by MD NIETO MOYSES ([id number]) on 10/11/2019 2:39:18 PM Referred By: Confirmed By:WILLIAN NIETO MD
[2019-10-12] MEDS: DEXTROSE 5%-NORMAL SALINE 1,000 ML IV SCH ×2 (06:02→12:03)
[2019-10-12] MEDS: HEPARIN NA (PORCINE) 5,000 UNITS/ML 1ML VIAL SQ SCH ×3 (06:02→21:37)
--- NOTE | 2019-10-12 08:56 | PN ---
Progress Note, Physician - Current Medication List Current Medications: Active Medications Heparin Sodium (Porcine) (Heparin -) 5,000 unit SQ TID [facility] Last Admin: 10/12/19 06:02 Dose: 5,000 unit Documented by: Dextrose/Sodium Chloride (D5-Ns -) 1,000 mls @ 42 mls/hr IV ASDIR [facility] Last Admin: 10/12/19 06:02 Dose: Not Given Documented by: - Objective Vital Signs: Vital Signs Temperature 98.1 F 10/12/19 05:00 Pulse Rate 88 10/12/19 08:16 Respiratory Rate 14 10/12/19 08:16 Blood Pressure 99/42 L 10/12/19 05:00 O2 Sat by Pulse Oximetry (%) 100 10/12/19 08:16 Cardiovascular: Yes: S1, S2 Respiratory: Yes: Mechanically Ventilated Gastrointestinal: Yes: Normal Bowel Sounds, Soft Labs: CBC, BMP 10/11/19 05:25 10/11/19 05:25 Problem List - Problems (1) Malfunctioning jejunostomy tube Assessment/Plan: -IR consult -npo -IV fluids gentle hydration Code(s): K94.13 - ENTEROSTOMY MALFUNCTION (2) Chronic respiratory failure Code(s): J96.10 - CHRONIC RESPIRATORY FAILURE, UNSP W HYPOXIA OR HYPERCAPNIA Qualifiers: (3) Decubital ulcer Code(s): L89.90 - PRESSURE ULCER OF UNSPECIFIED SITE, UNSPECIFIED STAGE (4) Pneumonia Assessment/Plan: -CXR with Left lung consolidation. Small left pleural effusion. -was recently discharged and completed IV abx for PNA -will observe off antibiotics at this time -can consider ID consult Code(s): J18.9 - PNEUMONIA, UNSPECIFIED ORGANISM Qualifiers: Pneumonia type: due to other aerobic Gram-negative bacteria Laterality: bilateral Lung location: lower lobe of lung Qualified Code(s): J15.6 - Pneumonia due to other Gram-negative bacteria (5) Seizure disorder Code(s): G40.909 - EPILEPSY, UNSP, NOT INTRACTABLE, WITHOUT STATUS EPILEPTICUS
--- NOTE | 2019-10-12 10:21 | CON.PULM ---
Consult Consult Specialty:: PULMONARY Referred by:: Dr Badillo Reason for Consultation:: respiratory failure - History of Present Illness Chief Complaint: clogged J tube History of Present Illness: 69yo male with h/o HTN, COPD, chronic respiratory failure s/p tracheostomy, schizoophrenia, Parkinsons, sacral decubitus ulcer, seizure disorder, recent admission for C diff Colitis, pneumonia treated with antibiotics who was sent from the shelter for a clogged J tube. Pt unable to provide further history at this time. No fevers recorded and also without leukocytosis. CXR severely rotated but essentially unchanged from his discharge. 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, Other (CP, MR) Pulmonary: Yes: Bronchitis, COPD, O2 Dependent (trach- vent dependent), Pneu monia, Previously Intubated, Other (Vent dependent via trach) Renal/: Yes: Other Infectious Disease: Yes: Other (resistant Pseudomonas) Psych: Yes: Schizophrenia Musculoskeletal: Yes: Other (functional quadriplegia) - Alcohol/Substance Use Hx Alcohol Use: No History of Substance Use: reports: None - Smoking History Smoking history: Unknown if ever smoked Have you smoked in the past 12 months: No - Social History Usual Living Arrangement: Senior Living ADL: Support Services History of Recent Travel: No Home Medications - Allergies Allergies/Adverse Reactions: Allergies Allergy/AdvReac Type Severity Reaction Status Date / Time No Known Allergies Allergy Verified 10/10/19 20:41 - Home Medications Home Medications: Ambulatory Orders Acetaminophen [Tylenol] 650 mg PO TID 10/11/19 Collagenase Clostridium Hist. [Santyl -] 1 applic TP DAILY 10/11/19 Famotidine [Pepcid] 20 mg PO DAILY 10/11/19 Ferrous Sulfate [Feosol] 300 mg GT DAILY 10/11/19 Heparin - 5,000 unit SQ BID 10/11/19 L. Acidophilus/Pectin, [place] [Acidophilus Capsule] 1 each PO DAILY 10/11/19 Lamotrigine [Lamotrigine ER] 50 mg PO BID 10/11/19 Multivit-Minerals [Certavite-Antioxidant Liquid] 15 ml PO DAILY 10/11/19 Nystatin Cream [Mycostatin Cream -] 1 applic BID 10/11/19 Omeprazole 20 mg PO DAILY 10/11/19 clonazePAM [Klonopin -] 0.5 mg PO DAILY 10/11/19 Review of Systems Unable to obtain ROS, reason: pt nonverbal Physical Exam Vital Sings: Vital Signs Temperature 98.1 F 10/12/19 05:00 Pulse Rate 88 10/12/19 08:16 Respiratory Rate 14 10/12/19 08:16 Blood Pressure 99/42 L 10/12/19 05:00 O2 Sat by Pulse Oximetry (%) 100 10/12/19 08:16 Constitutional: Yes: Calm Eyes: Yes: Conjunctiva Clear, EOM Intact HENT: Yes: Atraumatic, Normocephalic Neck: Yes: Supple, Trachea Midline Cardiovascular: Yes: Regular Rate and Rhythm Respiratory: Yes: Rhonchi ...Clubbing: No Gastrointestinal: Yes: Normal Bowel Sounds, Soft. No: Tenderness Edema: No Labs: CBC, BMP 10/11/19 05:25 10/11/19 05:25 Imaging - Results Chest X-ray: Report Reviewed, Image Reviewed (rotated, bilateral infiltrates R>L) Problem List - Problems (1) Malfunctioning jejunostomy tube Code(s): K94.13 - ENTEROSTOMY MALFUNCTION Assessment/Plan Clogged J tube Chronic Respiratory Failure s/p tracheostomy C Diff Colitis Recent Pneumonia Sacral Decubitus Ulcer Seizure Disorder Schizophrenia HTN Anemia - no fevers recorded and WBC normal, CXR unchanged from recent admission, would monitor off antibiotics - continue volume assist control - poor candidate for weaning - DVT/GI prophylaxis Thank you for this consult Byron Gil MD
--- NOTE | 2019-10-12 11:23 | CONSULT ---
- Consultation REQUESTING PROVIDER: CONSULT REQUEST: We have been asked to surgically evaluate this patient for wounds for the vascular surgery/wound care. PCP:Mindy Badillo HISTORY OF PRESENT ILLNESS: The patient is a 69 yo male who a PMHx of CP/contracture. Admitted to the hospital for GI/J tube dislodged. The medical team is requesting a wound consult. PMHx: COPD, Cerebral palsy, Parksinson disease, schizophrenia , urosepsis PSHx: tracheostomy, G and J tube Home Medications Medication Instructions Recorded Acetaminophen [Tylenol] 650 mg PO TID 10/11/19 Collagenase Clostridium Hist. 1 applic TP DAILY 10/11/19 [Santyl -] Famotidine [Pepcid] 20 mg PO DAILY 10/11/19 Ferrous Sulfate [Feosol] 300 mg GT DAILY 10/11/19 Heparin - 5,000 unit SQ BID 10/11/19 L. Acidophilus/Pectin, [place] 1 each PO DAILY 10/11/19 [Acidophilus Capsule] Lamotrigine [Lamotrigine ER] 50 mg PO BID 10/11/19 Multivit-Minerals 15 ml PO DAILY 10/11/19 [Certavite-Antioxidant Liquid] Nystatin Cream [Mycostatin Cream -] 1 applic BID 10/11/19 Omeprazole 20 mg PO DAILY 10/11/19 clonazePAM [Klonopin -] 0.5 mg PO DAILY 10/11/19 Allergies Allergy/AdvReac Type Severity Reaction Status Date / Time No Known Allergies Allergy Verified 10/10/19 20:41 REVIEW OF SYSTEMS: CONSTITUTIONAL: unable to obtain PHYSICAL EXAM: GENERAL: trach in place on vent Back: Upper back with wound. Clean and without fibrinous exudate. Wound approximately 3 x 3 in in length/width. Left hip with redness to the ischeal area/skin intact Right hip with deepened red to purple area with skin intact 1 x 2cm b/l heel skin intact. Right medial/lateral ankle with skin intact, mild erythem Left lateral ankle with stage 2/some fibrinous material approx 1 x2 cm in size Vital Signs Temperature 98.2 F 10/12/19 09:10 Pulse Rate 95 H 10/12/19 09:10 Respiratory Rate 16 10/12/19 09:10 Blood Pressure 126/71 10/12/19 09:10 O2 Sat by Pulse Oximetry (%) 100 10/12/19 08:16 Lab Results WBC 8.0 K/mm3 (4.0-10.0) 10/11/19 05:25 RBC 3.07 M/mm3 (4.00-5.60) L 10/11/19 05:25 Hgb 8.5 GM/dL (11.7-16.9) L 10/11/19 05:25 Hct 26.5 % (35.4-49) L D 10/11/19 05:25 MCV 86.4 fl (80-96) 10/11/19 05:25 MCHC 32.0 g/dl (32.0-35.9) 10/11/19 05:25 RDW 18.8 % (11.9-15.9) H 10/11/19 05:25 Plt Count 772 K/MM3 (134-434) H 10/11/19 05:25 Sodium 136 mmol/L (136-145) 10/11/19 05:25 Potassium 4.6 mmol/L (3.5-5.1) 10/11/19 05:25 Chloride 103 mmol/L (98-107) 10/11/19 05:25 Carbon Dioxide 29 mmol/L (21-32) 10/11/19 05:25 Anion Gap 5 MMOL/L (8-16) L 10/11/19 05:25 BUN 14.5 mg/dL (7-18) 10/11/19 05:25 Creatinine 0.4 mg/dL (0.55-1.3) L 10/11/19 05:25 Random Glucose 83 mg/dL (74-106) 10/11/19 05:25 Calcium 10.6 mg/dL (8.5-10.1) H 10/11/19 05:25 Problem List - Problems (1) Pressure ulcer of back Assessment/Plan: Pt with clean upper back ulcer with no surgical debridment needed. Placed an order for wet today to the area. All bony surfaces should be covered with optifoam as they are today. To b/l heels, upper back and ischium. -Reposition every two hours while in bed -Air mattress recommended -Use drawsheets and Trendelenburg when repositioning to reduce friction and shear -Manage incontinence via timely cleansing, use of appropriate incontinence disposables and use of barrier ointment to intact skin -Ensure adequate hydration/nutrition, supplementation per primary team -Ensure off-loading to all bony areas (heels, ankles, hips and tailbone) with Allevyn/Optifoam -Clean open wounds with normal saline and apply (insert ointment/dressing) D/w Dr. [place] Problems reviewed: Yes Code(s): L89.109 - PRESSURE ULCER OF UNSP PART OF BACK, UNSPECIFIED STAGE Qualifiers: Pressure injury stage: stage 3 Qualified Code(s): L89.103 - Pressure ulcer of unspecified part of back, stage 3 Visit type - Case Type Case Type: ED Admission - Emergency Emergency Visit: Yes ED Registration Date: 10/10/19 Care time: The patient presented to the Emergency Department on the above date and was hospitalized for further evaluation of their emergent condition. - New patient This patient is new to me today: Yes Date on this admission: 10/12/19
--- NOTE | 2019-10-12 12:56 | PN ---
Progress Note (short form) - Note Progress Note: ID CONSULT DICTATED PT RE-ADMITTED WITH CLOGGED JT CXR SHOWS RESIDUAL INFILTRATE PT TREATED FOR PNEUMONIA DURING HIS HIS RECENT HOSPITAL ADMISSION WHICH WAS COMPLICATED BY C DIFFICILE OBSERVE OFF ANTIBIOTICS
[2019-10-12 14:44] VITALS: BMI 19.8
--- NOTE | 2019-10-12 18:48 | CONS ---
DATE OF CONSULTATION: DATE OF DICTATION: 10/12/2019 INFECTIOUS DISEASE CONSULTATION HISTORY OF PRESENT ILLNESS: The patient is a 69-year-old male who was evaluated for possible sepsis. History was obtained from the chart, as he cannot give a history secondary to his mental status. He is a [facility] resident. He has indwelling gastrostomy and jejunostomy tubes. He has had multiple recent admissions for malfunctioning of his gastrointestinal tubes. He was most recently hospitalized at [facility] from September 27 through October 08. He is now readmitted after a repeated malfunction of the jejunostomy tube. On admission, he was noted on chest x-ray to have a left-sided infiltrate with atelectasis and small pleural effusion. It appears to be a residual finding from his previous pneumonia. His previous hospitalization was complicated by a left lower lobe infiltrate for which he received a dose of Zosyn. His hospital course at that time was further complicated by C. difficile colitis, for which he received vancomycin. He was ultimately [facility] to the [facility] on October 09, 2019. At the present time, he is awake. However, he is not verbally responsive. He has been afebrile with a normal white blood cell count. His breathing has been nonlabored. No reports of coughing. PAST MEDICAL HISTORY: Positive for COPD, cerebral palsy as per chart, parkinsonism, schizophrenia. PAST SURGICAL HISTORY: Status post tracheostomy, gastrostomy tube, and jejunostomy tube. ALLERGIES: No known allergies. MEDICATION: Include: 1. Heparin. 2. Dextrose. SOCIAL HISTORY: He is a [facility] resident. He is dependent in activities of daily living. No active tobacco or alcohol use. SYSTEMS REVIEW: Neurologic: As per HPI. Cardiac: Negative for chest pain or palpitations. Respiratory: Positive for respiratory failure, status post tracheostomy. Gastrointestinal: As per HPI. Genitourinary: Negative for urinary tract infection. LABORATORY DATA: White count 8.0, 68 neutrophils, 19 lymphocytes, 8 monocytes. Hemoglobin 26.5, platelet count 772. Creatinine 0.4. Liver enzymes within normal limits. Urinalysis pending. COVID-19 PCR pending. C. difficile toxin and antigen positive on October 03. PHYSICAL EXAMINATION: General: On exam, he is awake. He is not verbally responsive. Vital signs: Temperature 98.7, blood pressure 126/71, pulse 95 regular, respirations 12 per minute. HEENT: Sclerae anicteric. Patient is cachectic. Cardiovascular: Heart sounds S1, S2. Rhonchi bilaterally. Abdomen: Soft. There is a gastrostomy tube and a jejunostomy tube in place. There is excoriated skin around the tubes. There is a stage 3 decubitus ulcer present mid back, which appears clean. Extremities: Contracted, 1+ edema. There are dry ulcerations present on the feet bilaterally. IMPRESSION: A 69-year-old male now readmitted with repeated clogged J-tube. Chest x-ray shows residual infiltrate from his previous admission. Patient has been treated for pneumonia during his recent hospitalization, which was complicated by C. difficile colitis. At the present time, he is afebrile with a normal white blood cell count. His breathing is nonlabored. Would observe off antibiotic therapy. Aspiration precautions, local wound care. Thank you for the kind referral. ALKA SKINNER M.D. [id number]
--- NOTE | 2019-10-12 19:12 | CONSULT ---
Consult Consult Specialty:: Surgery Reason for Consultation:: recurrent J-tube blockage - History of Present Illness History of Present Illness: 69 y.o. 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, Other (CP, MR) Pulmonary: Yes: Bronchitis, COPD, O2 Dependent (trach- vent dependent), Pneumonia, Previously Intubated, Other (Vent dependent via trach) Renal/: Yes: Other Infectious Disease: Yes: Other (resistant Pseudomonas) Psych: Yes: Schizophrenia Musculoskeletal: Yes: Other (functional quadriplegia) - Alcohol/Substance Use Hx Alcohol Use: No History of Substance Use: reports: None - Smoking History Smoking history: Unknown if ever smoked Have you smoked in the past 12 months: No - Social History Usual Living Arrangement: [facility] ADL: Support Services History of Recent Travel: No Home Medications - Allergies Allergies/Adverse Reactions: Allergies Allergy/AdvReac Type Severity Reaction Status Date / Time No Known Allergies Allergy Verified 10/10/19 20:41 - Home Medications Home Medications: Ambulatory Orders Acetaminophen [Tylenol] 650 mg PO TID 10/11/19 Collagenase Clostridium Hist. [Santyl -] 1 applic TP DAILY 10/11/19 Famotidine [Pepcid] 20 mg PO DAILY 10/11/19 Ferrous Sulfate [Feosol] 300 mg GT DAILY 10/11/19 Heparin - 5,000 unit SQ BID 10/11/19 L. Acidophilus/Pectin, [place] [Acidophilus Capsule] 1 each PO DAILY 10/11/19 Lamotrigine [Lamotrigine ER] 50 mg PO BID 10/11/19 Multivit-Minerals [Certavite-Antioxidant Liquid] 15 ml PO DAILY 10/11/19 Nystatin Cream [Mycostatin Cream -] 1 applic BID 10/11/19 Omeprazole 20 mg PO DAILY 10/11/19 clonazePAM [Klonopin -] 0.5 mg PO DAILY 10/11/19 Physical Exam Vital Signs: Vital Signs Temperature 98.4 F 10/12/19 17:51 Pulse Rate 90 10/12/19 17:51 Respiratory Rate 18 10/12/19 17:51 Blood Pressure 148/73 10/12/19 17:51 O2 Sat by Pulse Oximetry (%) 99 10/12/19 15:27 Gastrointestinal: Yes: Soft, Other (G and J tubes in place) Labs: CBC, BMP 10/11/19 05:25 10/11/19 05:25 Imaging - Results Cat Scan: Report Reviewed, Image Reviewed Problem List - Problems (1) Malfunctioning jejunostomy tube Assessment/Plan: will review studies with IR Code(s): K94.13 - ENTEROSTOMY MALFUNCTION
[2019-10-13] MEDS: DEXTROSE 5%-NORMAL SALINE 1,000 ML IV SCH (01:48)
[2019-10-13] MEDS: HEPARIN NA (PORCINE) 5,000 UNITS/ML 1ML VIAL SQ SCH ×3 (06:01→21:03)
--- NOTE | 2019-10-13 07:22 | PN ---
Progress Note, Physician History of Present Illness: pulmonary unresponsive on vent support ac mode - Current Medication List Current Medications: Active Medications Heparin Sodium (Porcine) (Heparin -) 5,000 unit SQ TID [facility] Last Admin: 10/13/19 06:01 Dose: 5,000 unit Documented by: Dextrose/Sodium Chloride (D5-Ns -) 1,000 mls @ 42 mls/hr IV ASDIR [facility] Last Admin: 10/13/19 01:48 Dose: Not Given Documented by: - Objective Vital Signs: Vital Signs Temperature 98.2 F 10/13/19 05:00 Pulse Rate 102 H 10/13/19 05:00 Respiratory Rate 18 10/13/19 05:00 Blood Pressure 149/72 10/13/19 05:00 O2 Sat by Pulse Oximetry (%) 100 10/13/19 04:00 Constitutional: Yes: Calm, Thin, Other (unresponsive) Eyes: Yes: WNL HENT: Yes: WNL Neck: Yes: Supple (trach) Cardiovascular: Yes: Regular Rate and Rhythm, S1, S2 Respiratory: Yes: Rhonchi (few rhonchi) Gastrointestinal: Yes: Normal Bowel Sounds, Soft Extremities: Yes: WNL Edema: No Labs: Problem List - Problems (1) Anemia Code(s): D64.9 - ANEMIA, UNSPECIFIED Qualifiers: (2) Back wound Code(s): S21.209A - UNSP OPN WND UNSP BK WL OF THORAX W/O PENET THOR CAV, INIT (3) C. difficile diarrhea Code(s): A04.72 - ENTEROCOLITIS D/T CLOSTRIDIUM DIFFICILE, NOT SPCF RECUR (4) COPD (chronic obstructive pulmonary disease) Code(s): J44.9 - CHRONIC OBSTRUCTIVE PULMONARY DISEASE, UNSPECIFIED Qualifiers: (5) Cerebral palsy Code(s): G80.9 - CEREBRAL PALSY, UNSPECIFIED Qualifiers: (6) Chronic respiratory failure Code(s): J96.10 - CHRONIC RESPIRATORY FAILURE, UNSP W HYPOXIA OR HYPERCAPNIA Qualifiers: (7) Dislodged gastrostomy tube Code(s): Z43.1 - ENCOUNTER FOR ATTENTION TO GASTROSTOMY (8) Functional quadriplegia Code(s): R53.2 - FUNCTIONAL QUADRIPLEGIA Assessment/Plan Problem List - Problems (1) Malfunctioning jejunostomy tube Code(s): K94.13 - ENTEROSTOMY MALFUNCTION Assessment/Plan Clogged J tube Chronic Respiratory Failure s/p tracheostomy C Diff Colitis Recent Pneumonia Sacral Decubitus Ulcer Seizure Disorder Schizophrenia HTN Anemia - no fevers recorded and WBC normal, CXR unchanged from recent admission, would monitor off antibiotics - continue volume assist control - poor candidate for weaning - DVT/GI prophylaxis DR HERNANDEZ
[2019-10-13] MEDS ORDERED: ACETAMINOPHEN 650 MG/20.3 ML ORAL SOLUTION (CUPS) PO PRN (13:45)
--- NOTE | 2019-10-13 14:08 | PN ---
Progress Note, Physician Chief Complaint: Clogged J tube Anemia History of Present Illness: NAD on mech vent multiple visits for clogged J tube Surgery consulted, awaiting evaluation - Current Medication List Current Medications: Active Medications Acetaminophen (Tylenol Oral Solution -) 650 mg PO Q6H PRN PRN Reason: PAIN Clonazepam (Klonopin -) 0.5 mg GT DAILY [facility] Collagenase (Santyl -) 1 applic TP DAILY [facility]; Protocol Famotidine (Pepcid) 20 mg PEG DAILY [facility] Ferrous Sulfate (Feosol) 300 mg GT DAILY [facility] Heparin Sodium (Porcine) (Heparin -) 5,000 unit SQ TID [facility] Last Admin: 10/13/19 06:01 Dose: 5,000 unit Documented by: Dextrose/Sodium Chloride (D5-Ns -) 1,000 mls @ 42 mls/hr IV ASDIR [facility] Last Admin: 10/13/19 01:48 Dose: Not Given Documented by: Lamotrigine (Lamictal -) 25 mg PO BID [facility] Multivitamins/Minerals (Certavite-Antioxidant Liquid) 15 ml GT DAILY [facility] Nystatin (Mycostatin Cream -) 1 applic TP BID [facility] - Objective Vital Signs: Vital Signs Temperature 101 F H 10/13/19 09:00 Pulse Rate 111 H 10/13/19 09:00 Respiratory Rate 12 10/13/19 11:30 Blood Pressure 126/65 10/13/19 09:00 O2 Sat by Pulse Oximetry (%) 99 10/13/19 11:30 Constitutional: Yes: No Distress, Calm, Cachectic Cardiovascular: Yes: Regular Rate and Rhythm Respiratory: Yes: Regular, Mechanically Ventilated, Rhonchi (diffuse) Gastrointestinal: Yes: Normal Bowel Sounds, Soft Genitourinary: Yes: Incontinence Musculoskeletal: Yes: Muscle Weakness Extremities: Yes: Other (Generalized atrophy, contracted) Edema: No Peripheral Pulses WNL: Yes Integumentary: Yes: Pressure Ulcer (multiple sites, BL heel, Upper back) Wound/Incision: Yes: Dressing Dry and Intact Neurological: Yes: Lethargy, Pre-Existing Deficit Labs: CBC, BMP 10/11/19 05:25 10/11/19 05:25 Problem List - Problems (1) Malfunctioning jejunostomy tube Assessment/Plan: -Spoke to IR, unable to insert another J tube because of recurring issue of clogging 2/2 to chronic volvulus. -Surgery consulted- awaiting recommendations -Ok to use G tube for medications only -HOB >35 degrees to avoid aspiration Problems reviewed: Yes Code(s): K94.13 - ENTEROSTOMY MALFUNCTION (2) Pressure ulcer of back Assessment/Plan: -Santyl + allevyn Problems reviewed: Yes Code(s): L89.109 - PRESSURE ULCER OF UNSP PART OF BACK, UNSPECIFIED STAGE Qualifiers: Pressure injury stage: stage 3 Qualified Code(s): L89.103 - Pressure ulcer of unspecified part of back, stage 3 (3) Anemia Assessment/Plan: -Chronic TAM -Injectafer once -Continue Ferrous sulfate daily -Monitor trend -Transfuse only if Hg<7.0 to avoid fluid overload Problems reviewed: Yes Code(s): D64.9 - ANEMIA, UNSPECIFIED Qualifiers: (4) Chronic respiratory failure Assessment/Plan: -Pulmonary on board -[facility] vent -not a candidate for weaning at this time. Problems reviewed: Yes Code(s): J96.10 - CHRONIC RESPIRATORY FAILURE, UNSP W HYPOXIA OR HYPERCAPNIA Qualifiers: Assessment/Plan See problem list
[2019-10-13] MEDS ORDERED: FERRIC CARBOXYMALTOSE 750 MG in SODIUM CHLORIDE 250 ML IVPB ONE (14:15)
[2019-10-13] MEDS: FERROUS SO4 300 MG/5 ML ORAL SOLN UNIT DOSE CUPS GT SCH (14:36)
[2019-10-13] MEDS: clonazePAM 0.5 MG TABLET GT SCH (14:36)
[2019-10-13] MEDS: NYSTATIN 100,000 UNIT/GM TOPICAL CREAM 15 GM TUBE TP SCH ×2 (16:24→21:04)
[2019-10-13] MEDS: lamoTRIgine 25 MG TABLET PO SCH ×2 (16:25→21:04)
[2019-10-13] MEDS: MULTIVIT-MINERALS ORAL LIQUID GT SCH (16:25)
[2019-10-14] MEDS: DEXTROSE 5%-NORMAL SALINE 1,000 ML IV SCH ×2 (00:18→04:21)
[2019-10-14] MEDS: HEPARIN NA (PORCINE) 5,000 UNITS/ML 1ML VIAL SQ SCH ×3 (05:35→22:08)
--- NOTE | 2019-10-14 08:00 | PN ---
Progress Note, Physician History of Present Illness: pulmonary poorly responsive on vent support ac mode,-resp distress - Current Medication List Current Medications: Active Medications Acetaminophen (Tylenol Oral Solution -) 650 mg PO Q6H PRN PRN Reason: PAIN Clonazepam (Klonopin -) 0.5 mg GT DAILY [facility] Last Admin: 10/13/19 14:36 Dose: 0.5 mg Documented by: Collagenase (Santyl -) 1 applic TP DAILY [facility]; Protocol Famotidine (Pepcid) 20 mg PEG DAILY [facility] Ferrous Sulfate (Feosol) 300 mg GT DAILY [facility] Last Admin: 10/13/19 14:36 Dose: 300 mg Documented by: Heparin Sodium (Porcine) (Heparin -) 5,000 unit SQ TID [facility] Last Admin: 10/14/19 05:35 Dose: 5,000 unit Documented by: Dextrose/Sodium Chloride (D5-Ns -) 1,000 mls @ 42 mls/hr IV ASDIR [facility] Last Admin: 10/14/19 04:21 Dose: 42 mls/hr Documented by: Lamotrigine (Lamictal -) 25 mg PO BID [facility] Last Admin: 10/13/19 21:04 Dose: 25 mg Documented by: Multivitamins/Minerals (Certavite-Antioxidant Liquid) 15 ml GT DAILY [facility] Last Admin: 10/13/19 16:25 Dose: 15 ml Documented by: Nystatin (Mycostatin Cream -) 1 applic TP BID [facility] Last Admin: 10/13/19 21:04 Dose: 1 applic Documented by: - Objective Vital Signs: Vital Signs Temperature 97.2 F L 10/14/19 05:00 Pulse Rate 88 10/14/19 05:00 Respiratory Rate 22 H 10/14/19 05:00 Blood Pressure 125/59 L 10/14/19 05:00 O2 Sat by Pulse Oximetry (%) 98 10/14/19 04:45 Constitutional: Yes: Cachectic, Other (poorly responsive) Eyes: Yes: WNL HENT: Yes: WNL Neck: Yes: Supple (trach) Cardiovascular: Yes: Regular Rate and Rhythm, S1, S2 Respiratory: Yes: Diminished Gastrointestinal: Yes: Normal Bowel Sounds, Soft Extremities: Yes: Other (contracted) Edema: No Labs: Problem List - Problems (1) Anemia Code(s): D64.9 - ANEMIA, UNSPECIFIED Qualifiers: (2) Back wound Code(s): S21.209A - UNSP OPN WND UNSP BK WL OF THORAX W/O PENET THOR CAV, INIT (3) C. difficile diarrhea Code(s): A04.72 - ENTEROCOLITIS D/T CLOSTRIDIUM DIFFICILE, NOT SPCF RECUR (4) COPD (chronic obstructive pulmonary disease) Code(s): J44.9 - CHRONIC OBSTRUCTIVE PULMONARY DISEASE, UNSPECIFIED Qualifiers: (5) Cerebral palsy Code(s): G80.9 - CEREBRAL PALSY, UNSPECIFIED Qualifiers: (6) Chronic respiratory failure Code(s): J96.10 - CHRONIC RESPIRATORY FAILURE, UNSP W HYPOXIA OR HYPERCAPNIA Qualifiers: (7) Dislodged gastrostomy tube Code(s): Z43.1 - ENCOUNTER FOR ATTENTION TO GASTROSTOMY (8) Functional quadriplegia Code(s): R53.2 - FUNCTIONAL QUADRIPLEGIA Assessment/Plan Problem List - Problems (1) Malfunctioning jejunostomy tube Code(s): K94.13 - ENTEROSTOMY MALFUNCTION Assessment/Plan Clogged J tube Chronic Respiratory Failure s/p tracheostomy C Diff Colitis Recent Pneumonia Sacral Decubitus Ulcer Seizure Disorder Schizophrenia HTN Anemia - no fevers recorded and WBC normal, CXR unchanged from recent admission, would monitor off antibiotics - continue volume assist control - poor candidate for weaning - DVT/GI prophylaxis - J tube as per surgery DR HERNANDEZ
[2019-10-14] MEDS ORDERED: PT OWN MED DRAWER 7, Y5N ONE ×2 (09:34→22:05)
[2019-10-14] MEDS: MULTIVIT-MINERALS ORAL LIQUID GT SCH (09:35)
[2019-10-14] MEDS: FERROUS SO4 300 MG/5 ML ORAL SOLN UNIT DOSE CUPS GT SCH (09:35)
[2019-10-14] MEDS: NYSTATIN 100,000 UNIT/GM TOPICAL CREAM 15 GM TUBE TP SCH ×2 (09:36→22:08)
[2019-10-14] MEDS: lamoTRIgine 25 MG TABLET PO SCH ×2 (09:36→22:08)
[2019-10-14] MEDS: clonazePAM 0.5 MG TABLET GT SCH (09:36)
[2019-10-14 09:54] LABS: ALBUMIN 1.6 g/dl (3.4-5.0); BLOOD UREA NITROGEN 9.4 mg/dL (7-18); CALCIUM 10.8 mg/dL (8.5-10.1); POTASSIUM 3.5 mmol/L (3.5-5.1)
[2019-10-14 10:00] LABS: BILIRUBIN,TOTAL 0.3 mg/dL (0.2-1); TOT PROT 6.2 g/dl (6.4-8.2)
[2019-10-14] MEDS ORDERED: FAMOTIDINE 40 MG/5 ML ORAL SUSPENSION PEG SCH (10:00)
[2019-10-14] MEDS ORDERED: COLLAGENASE CLOSTRIDIUM HIST. 30 GRAMS TUBE TP SCH (10:00)
[2019-10-14 10:01] LABS: CREATININE 0.4 mg/dL (0.55-1.3)
[2019-10-14 11:06] LABS: EOS % 2.5 % (0-4.5); HEMATOCRIT 27.7 % (35.4-49); HEMOGLOBIN 9.2 GM/dL (11.7-16.9); MCH 28.8 pg (25.7-33.7); MCHC 33.1 g/dl (32.0-35.9); MEAN CELL VOLUME 87.1 fl (80-96); MEAN PLT VOLUME 7.2 fl (7.5-11.1); MONO % 6.7 % (3.8-10.2); NEUT % 71.8 % (42.8-82.8); PLATELET COUNT 674 K/MM3 (134-434); RBC 3.18 M/mm3 (4.00-5.60); RDW 19.2 % (11.9-15.9); WHITE BLOOD COUNT 9.7 K/mm3 (4.0-10.0)
[2019-10-14 11:39] LABS: ALBUMIN 1.7 g/dl (3.4-5.0); BILIRUBIN,TOTAL 0.3 mg/dL (0.2-1); BLOOD UREA NITROGEN 8.7 mg/dL (7-18); CALCIUM 11.2 mg/dL (8.5-10.1); CREATININE 0.4 mg/dL (0.55-1.3); POTASSIUM 3.5 mmol/L (3.5-5.1); TOT PROT 6.3 g/dl (6.4-8.2)
--- NOTE | 2019-10-14 12:17 | PN ---
Progress Note, Physician Chief Complaint: Clogged J tube Anemia History of Present Illness: [facility] for [facility] J tube Seen by Surgery, who recommended pt to be transferred to tertiary care center for further evaluation and possible exploratory surgery to get access for nutrition Pt is COVID 19 Negative on 10/10/19 - Current Medication List Current Medications: Active Medications Acetaminophen (Tylenol Oral Solution -) 650 mg PO Q6H PRN PRN Reason: PAIN Clonazepam (Klonopin -) 0.5 mg GT DAILY [facility] Last Admin: 10/14/19 09:36 Dose: 0.5 mg Documented by: Collagenase (Santyl -) 1 applic TP DAILY [facility]; Protocol Last Admin: 10/14/19 09:36 Dose: 1 applic Documented by: Famotidine (Pepcid) 20 mg PEG DAILY [facility] Last Admin: 10/14/19 09:36 Dose: 20 mg Documented by: Ferrous Sulfate (Feosol) 300 mg GT DAILY [facility] Last Admin: 10/14/19 09:35 Dose: 300 mg Documented by: Heparin Sodium (Porcine) (Heparin -) 5,000 unit SQ TID [facility] Last Admin: 10/14/19 05:35 Dose: 5,000 unit Documented by: Dextrose/Sodium Chloride (D5-Ns -) 1,000 mls @ 42 mls/hr IV ASDIR [facility] Last Admin: 10/14/19 04:21 Dose: 42 mls/hr Documented by: Lamotrigine (Lamictal -) 25 mg PO BID [facility] Last Admin: 10/14/19 09:36 Dose: 25 mg Documented by: Multivitamins/Minerals (Certavite-Antioxidant Liquid) 15 ml GT DAILY [facility] Last Admin: 10/14/19 09:35 Dose: 15 ml Documented by: Nystatin (Mycostatin Cream -) 1 applic TP BID [facility] Last Admin: 10/14/19 09:36 Dose: 1 applic Documented by: - Objective Vital Signs: Vital Signs Temperature 99 F 10/14/19 09:00 Pulse Rate 90 10/14/19 09:00 Respiratory Rate 22 H 10/14/19 09:00 Blood Pressure 107/58 L 10/14/19 09:00 O2 Sat by Pulse Oximetry (%) 100 10/14/19 07:40 Constitutional: Yes: No Distress, Calm, Cachectic Cardiovascular: Yes: Regular Rate and Rhythm Respiratory: Yes: Regular, Mechanically Ventilated, Rhonchi (diffuse) Gastrointestinal: Yes: Normal Bowel Sounds, Soft Genitourinary: Yes: Incontinence Musculoskeletal: Yes: Muscle Weakness Extremities: Yes: Other (generalized atrophy, contractions) Edema: No Peripheral Pulses WNL: Yes Integumentary: Yes: Pressure Ulcer (multiple) Wound/Incision: Yes: Dressing Dry and Intact Neurological: Yes: Pre-Existing Deficit Labs: CBC, BMP 10/14/19 10:40 10/14/19 10:40 Problem List - Problems (1) Malfunctioning jejunostomy tube Assessment/Plan: -Spoke to IR, unable to insert another J tube because of recurring issue of clogging 2/2 to chronic volvulus. -Surgery consulted- awaiting recommendations -Ok to use G tube for medications only -HOB >35 degrees to avoid aspiration Problems reviewed: Yes Code(s): K94.13 - ENTEROSTOMY MALFUNCTION (2) Pressure ulcer of back Assessment/Plan: -Santyl + allevyn Problems reviewed: Yes Code(s): L89.109 - PRESSURE ULCER OF UNSP PART OF BACK, UNSPECIFIED STAGE Qualifiers: Pressure injury stage: stage 3 Qualified Code(s): L89.103 - Pressure ulcer of unspecified part of back, stage 3 (3) Anemia Assessment/Plan: -Chronic TAM -Injectafer once -Continue Ferrous sulfate daily -Monitor trend -Transfuse only if Hg<7.0 to avoid fluid overload Problems reviewed: Yes Code(s): D64.9 - ANEMIA, UNSPECIFIED Qualifiers: (4) Chronic respiratory failure Assessment/Plan: -Pulmonary on board -[facility] vent -not a candidate for weaning at this time. Problems reviewed: Yes Code(s): J96.10 - CHRONIC RESPIRATORY FAILURE, UNSP W HYPOXIA OR HYPERCAPNIA Qualifiers: Assessment/Plan See problem list
--- NOTE | 2019-10-14 12:29 | PN ---
Progress Note, Physician History of Present Illness: TEMP SPIKE NOTED NOT VERBALLY RESPONSIVE NO ACUTE DISTRESS - Current Medication List Current Medications: Active Medications Acetaminophen (Tylenol Oral Solution -) 650 mg PO Q6H PRN PRN Reason: PAIN Clonazepam (Klonopin -) 0.5 mg GT DAILY [facility] Last Admin: 10/14/19 09:36 Dose: 0.5 mg Documented by: Collagenase (Santyl -) 1 applic TP DAILY [facility]; Protocol Last Admin: 10/14/19 09:36 Dose: 1 applic Documented by: Famotidine (Pepcid) 20 mg PEG DAILY [facility] Last Admin: 10/14/19 09:36 Dose: 20 mg Documented by: Ferrous Sulfate (Feosol) 300 mg GT DAILY [facility] Last Admin: 10/14/19 09:35 Dose: 300 mg Documented by: Heparin Sodium (Porcine) (Heparin -) 5,000 unit SQ TID [facility] Last Admin: 10/14/19 05:35 Dose: 5,000 unit Documented by: Dextrose/Sodium Chloride (D5-Ns -) 1,000 mls @ 42 mls/hr IV ASDIR [facility] Last Admin: 10/14/19 04:21 Dose: 42 mls/hr Documented by: Lamotrigine (Lamictal -) 25 mg PO BID [facility] Last Admin: 10/14/19 09:36 Dose: 25 mg Documented by: Multivitamins/Minerals (Certavite-Antioxidant Liquid) 15 ml GT DAILY [facility] Last Admin: 10/14/19 09:35 Dose: 15 ml Documented by: Nystatin (Mycostatin Cream -) 1 applic TP BID [facility] Last Admin: 10/14/19 09:36 Dose: 1 applic Documented by: - Objective Vital Signs: Vital Signs Temperature 99 F 10/14/19 09:00 Pulse Rate 90 10/14/19 09:00 Respiratory Rate 22 H 10/14/19 09:00 Blood Pressure 107/58 L 10/14/19 09:00 O2 Sat by Pulse Oximetry (%) 100 10/14/19 07:40 Constitutional: Yes: No Distress Eyes: Yes: Conjunctiva Clear Cardiovascular: Yes: Regular Rate and Rhythm, S1, S2 Respiratory: Yes: Diminished Gastrointestinal: Yes: Normal Bowel Sounds, Soft. No: Tenderness Edema: Yes Labs: CBC, BMP 10/14/19 10:40 10/14/19 10:40 Assessment/Plan TEMP SPIKE J TUBE MALFUNCTION S/P PNEUMONIA S/P C DIFFICILE FELIBERTO CULTURE FOR RECURRENT TEMP OBSERVE OFF ANTIBIOTICS
[2019-10-14] MEDS ORDERED: D5-LR+20 MEQ KCL - 20 MEQ/1,000 ML INFUS.BAG IV SCH (12:45)
[2019-10-15 00:28] VITALS: BP 114/66; PULSE 78; TEMP 100.4
== END 2019-10-14 22:35 | disposition short-term general hospital (02) ==
LOC: JER 20:26 → INTOOBSV 23:22 → JERBED 23:22 → J5S 10-11 13:58
PROVIDERS: ADMIT Internal Medicine; ATTEND Family Medicine
PROC: 3E023GC Introduction of Other Therapeutic Substance into Muscle, Percutaneous Approach (ICD-10-PCS; principal; 2019-10-10)
PROC: 3E033GC Introduction of Other Therapeutic Substance into Peripheral Vein, Percutaneous Approach (ICD-10-PCS; 2019-10-10)
PROC: 3E0337Z Introduction of Electrolytic and Water Balance Substance into Peripheral Vein, Percutaneous Approach (ICD-10-PCS; 2019-10-10)
DX: K94.13 Enterostomy malfunction (principal); K94.23 Gastrostomy malfunction; R60.0 Localized edema; G80.9 Cerebral palsy, unspecified; L53.8 Other specified erythematous conditions; L89.103 Pressure ulcer of unspecified part of back, stage 3; J96.10 Chronic respiratory failure, unspecified whether with hypoxia or hypercapnia; J15.6 Pneumonia due to other Gram-negative bacteria; D64.9 Anemia, unspecified; A04.72 Enterocolitis due to Clostridium difficile, not specified as recurrent; J44.9 Chronic obstructive pulmonary disease, unspecified; R50.9 Fever, unspecified; I10 Essential (primary) hypertension; Z29.9 Encounter for prophylactic measures, unspecified; F20.9 Schizophrenia, unspecified; G20 Parkinson's disease; E88.09 Other disorders of plasma-protein metabolism, not elsewhere classified; J15.1 Pneumonia due to Pseudomonas; Z16.30 Resistance to unspecified antimicrobial drugs; Z99.89 Dependence on other enabling machines and devices; M62.50 Muscle wasting and atrophy, not elsewhere classified, unspecified site; Z86.19 Personal history of other infectious and parasitic diseases; R23.8 Other skin changes
CPT/HCPCS: 36415; 71045-TC-FY; 80053; 82962; 83735; 84100; 85025; 93005; 93010; 94002; 96361; 96365; 96372; 99285-25; G0378; J1439; J1644; U0003

== ENCOUNTER 2019-12-05 09:42 | Inpatient (IN) | payer OTHER ==
--- NOTE | 2019-12-05 09:58 | PDOC ---
History of Present Illness <Gena Galvez - Last Filed: 12/06/19 09:20> <Sanna Hooks - Last Filed: 12/07/19 10:59> - General Stated Complaint: TACHYCARDIA Past History - Medical History Asthma: Yes COPD: Yes (resp failure,trach-vent dependent,pneumonia) GI Disorders: (pt has a jtube that is clamped and a dislodged gtube,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) HTN: Yes Psychiatric Problems: Yes (schizopfrenia) Seizures: Yes - Surgical History Abdominal Surgery: Yes (G tube and J tube) - Immunization History Immunization Up to Date: Yes - Psycho-Social/Smoking History Smoking History: Unknown if ever smoked Have you smoked in the past 12 months: No <Gena Galvez - Last Filed: 12/06/19 09:20> <Sanna Hooks - Last Filed: 12/07/19 10:59> - Medical History Allergies/Adverse Reactions: Allergies Allergy/AdvReac Type Severity Reaction Status Date / Time No Known Allergies Allergy Verified 10/10/19 20:41 Home Medications: Ambulatory Orders Acetaminophen [Tylenol] 650 mg PO TID 10/11/19 Collagenase Clostridium Hist. [Santyl -] 1 applic TP DAILY 10/11/19 Famotidine [Pepcid] 20 mg PO DAILY 10/11/19 Ferrous Sulfate [Feosol] 300 mg GT DAILY 10/11/19 L. Acidophilus/Pectin, Hardy [Acidophilus Capsule] 1 each PO DAILY 10/11/19 Lamotrigine [Lamotrigine ER] 50 mg PO BID 10/11/19 Multivit-Minerals [Certavite-Antioxidant Liquid] 15 ml PO DAILY 10/11/19 Nystatin Cream [Mycostatin Cream -] 1 applic BID 10/11/19 Omeprazole 20 mg PO DAILY 10/11/19 clonazePAM [Klonopin -] 0.5 mg PO DAILY 10/11/19 Ascorbic Acid [C-500] 500 mg PO DAILY 12/05/19 Cinacalcet HCl [Sensipar] 60 mg PO 12/05/19 Nystatin Cream [Mycostatin Cream -] 12/05/19 Silver Sulfadiazine BID 12/05/19 Vancomycin HCl [Firvanq] 125 mg PO BID 08/22/20 Warfarin Sodium 3 mg PO DAILY 12/05/19 Zinc Sulfate [Orazinc] 220 mg PO DAILY 12/05/19 *Physical Exam - Vital Signs Last Vital Signs Temp Pulse Resp BP Pulse Ox 98.6 F 115 H 17 96/57 L 98 12/05/19 11:45 12/05/19 14:06 12/05/19 13:32 12/05/19 12:30 12/05/19 13:32 <Sanna Hooks - Last Filed: 12/07/19 10:59> ED Treatment Course - LABORATORY CBC & Chemistry Diagram: 12/05/19 10:35 12/05/19 10:35 - RADIOLOGY Radiology Studies Ordered: Category Date Time Status CHEST X-RAY PORTABLE* [RAD] Stat Radiology 12/05/19 09:54 Ordered <Gena Galvez - Last Filed: 12/06/19 09:20> - LABORATORY CBC & Chemistry Diagram: 12/07/19 07:00 12/07/19 07:00 - ADDITIONAL ORDERS Additional order review: Laboratory Results 12/05/19 12/05/19 12/05/19 12:10 10:40 10:35 PT with INR INR PTT (Actin FS) VBG pH 7.048 L* POC VBG pCO2 76.8 H* POC VBG pO2 22.0 L VBG HCO3 20.7 L VBG O2 Sat (Yen) 20.6 L VBG Base Excess -9.6 L Sodium Potassium Chloride Carbon Dioxide Anion Gap BUN Creatinine Est GFR (CKD-EPI)AfAm Est GFR (CKD-EPI)NonAf Random Glucose Lactic Acid 6.0 H* Calcium Total Bilirubin AST ALT Alkaline Phosphatase Creatine Kinase CK-MB (CK-2) Troponin I Total Protein Albumin Urine Color Dk yellow Urine Appearance Turbid Urine pH 5.0 D Ur Specific [place] 1.029 Urine Protein Trace Urine Glucose (UA) Negative Urine Ketones Trace H Urine Blood Negative Urine Nitrite Negative Urine Bilirubin 2+ H Urine Urobilinogen 1.0 Ur Leukocyte Esterase 1+ H Urine WBC (Auto) 41 Urine Casts (Auto) 16 U Epithel Cells (Auto) >36 12/05/19 12/05/19 10:35 10:35 PT with INR 28.30 H INR 2.38 H PTT (Actin FS) 32.9 VBG pH POC VBG pCO2 POC VBG pO2 VBG HCO3 VBG O2 Sat (Yen) VBG Base Excess Sodium 142 Potassium 5.6 H Chloride 111 H Carbon Dioxide 22 Anion Gap 9 BUN 25.3 H Creatinine 1.1 Est GFR (CKD-EPI)AfAm 78.97 Est GFR (CKD-EPI)NonAf 68.13 Random Glucose 106 Lactic Acid Calcium 9.1 Total Bilirubin 0.3 AST 22 ALT 6 L Alkaline Phosphatase 109 Creatine Kinase 50 CK-MB (CK-2) 1.4 Troponin I < 0.02 Total Protein 7.5 Albumin 1.1 L Urine Color Urine Appearance Urine pH Ur Specific [place] Urine Protein Urine Glucose (UA) Urine Ketones Urine Blood Urine Nitrite Urine Bilirubin Urine Urobilinogen Ur Leukocyte Esterase Urine WBC (Auto) Urine Casts (Auto) U Epithel Cells (Auto) 12/05/19 10:35 RBC 3.46 L MCV 90.9 MCHC 31.1 L RDW 17.9 H MPV 7.3 L Neutrophils % 78.1 Lymphocytes % 12.2 D Monocytes % 6.2 Eosinophils % 2.8 Basophils % 0.7 - Medications Given in the ED: ED Medications Discontinued Medications Generic Name Dose Route Start Last Admin Trade Name Monica PRN Reason Stop Dose Admin Acetaminophen 1,000 mg 12/05/19 10:43 12/05/19 10:58 Ofirmev Injection - IVPB 12/05/19 10:44 1,000 mg ONCE ONE Administration Piperacillin Sod/Tazobactam 50 mls @ 100 mls/hr 12/05/19 10:41 12/05/19 11:15 Sod 3.375 gm/ Dextrose IVPB 12/05/19 11:10 100 mls/hr ONCE ONE Administration Protocol Lactated Ringer's 1,000 ml 12/05/19 11:30 12/05/19 12:20 Lactated Ringers Solution IV 12/05/19 11:31 1,000 ml NOW ONE Administration Sodium Chloride 1,000 ml 12/05/19 10:41 12/05/19 10:40 Normal Saline - IV 12/05/19 10:42 1,000 ml ONCE ONE Administration Vancomycin HCl 1,000 mg 12/05/19 10:41 12/05/19 12:15 Vancomycin (Pre-Docked) IVPB 12/05/19 10:42 1,000 mg ONCE ONE Administration Protocol <Sanna Hooks - Last Filed: 12/07/19 10:59> Medical Decision Making - Medical Decision Making 12/05/19 09:57 HPI: 69M PMH COPD, Parkinsons, Schizophrenia, cerebral palsy, trach dependent [facility] for hypotension 78/43, tachycardia, and worsening respiration. Discharded from [facility] 12/02/19. Nonverbal. He is unable to contribute to medical history. Full code. GENERAL: Awake, in no acute distress HEAD: No signs of trauma, normocephalic, atraumatic EYES: PERRLA, EOMI, sclera anicteric, conjunctiva clear ENT: Auricles normal inspection, nares patent, oropharynx clear without exudates. Dry mucosa NECK: Normal ROM, supple, no lymphadenopathy, JVD, or masses, trach in place LUNGS: No distress, difficulty assessing lungs HEART: Tachycardic rate and regular rhythm, normal S1 and S2, no murmurs, rubs or gallops, peripheral pulses normal and equal bilaterally. ABDOMEN: J tube in place, no surrounding erythema. Soft, nontender, +distender, normoactive bowel sounds. No guarding, no rebound. No masses. EXTREMITIES : Normal inspection, no edema. No clubbing or cyanosis NEUROLOGICAL: Responsive to pain only SKIN: Cold Dry, normal turgor, multiple wounds and rashes noted Tachycardic, tachypneic, soft BP, febrile Ddx: Septic with multiple possible sources including PNA, C diff colitis, and wounds. -Vanc/Zosyn plus PO vanc and IV metronidazole for severe c diff colitis -1L NS, 1L LR -Ofirmev -CTAP and CT chest -EKbpm, sinus tachycardia, low voltage QRS, no e/o acute ischemia -CXR: poor study, unable to assess -Labs Attempted to call contacts sister Mckenzie Jorge ([phone], ) and Nancythuy Monique [facility] ([phone]) - all either disconnected or straight to voicemail. CTs reviewed: b/l PNA, near complete opacification of R lung, cavitary infiltrate SHANIKA, diffuse enteritis, ascities Labs reviewed: Notable for WBC 30, lact [address] Melendez. Requested ICU. ICU consulted - discussed case, accepted to ICU. HPI: obtained from medical record given pt underlying conditon Briefly Mr Street is a 69 y/o man with functional quadraplegia, cerebral palsy, parkinsons, chronic trach/JT with recurrent volvulous recently admitted at [facility] for possible resection now being transferred from [facility] for fever, purulent drainage from multiple decubitus ulcers on sacrum and hips. PMhx: -Parkinsons -Cerebral Palsy -recurrent volulous -recurrent pneumonia -vent dependant PSX: -tracheostomy -PEG-J Social: [place], no toxic habits Family: Non-contrib ROS; unable 2/2 pt clinical condition PE: Gen: chronically ill appearing contracted vented man Heent: bitemporal wasting, R reactive pupil, L surgical, trach Pulm: coarse rhonci bilaterally R> L, no wheeze CV: tachy, no M/r/g appreciated ABD: distended, typanic, hypoactive BS, erythema around J-tube Ext: no edema, contracted Neuro: withdrawals to noxious stimuli, contracted, grimaces, does not follow A/ 69 y/o chronically critically ill man with Cerebral palsy and Parkinsons now with severe sepsis, mild coagulopathy, and lactic acidosis with multiple possible sources: multilobar pneumonia, intrabdominal/Cdiff, infectious wounds P/ -Broad spectrum abx, on zosyn, vanco, Po Vanco and Metro. Given ESBL hx and MDR pseudomonas hx would have low threshold to escalate if spike another fever and/or progresses to shock. ID to consult. Would need carbapenem ( intermediate sens to tessie, ? erta) -volume resuscitation, start standing IVF -repeat lactate now -Vit K for sepsis induced coagulopathy -will need WOC nurse (entered) vs surgical consult for debridement -full vent support, not candidate for weaning -GOC discussion if family available -SCD for DVT prophy 12/06/19 09:20 <Gena Galvez - Last Filed: 12/06/19 09:20> - Critical Care Time Total Critical Care Time (minutes): 45 (severe sepsis, metabolic derangements) Critical Care Statement: The care of this patient involved high complexity decision making to prevent further life threatening deterioration of the patient's condition and/or to evaluate & treat vital organ system(s) failure or risk of failure. <Sanna Hooks - Last Filed: 12/07/19 10:59> Discharge - Discharge Information Problems reviewed: Yes - Admission Yes <Gena Galvez - Last Filed: 12/06/19 09:20> - Discharge Information Problems reviewed: Yes <Sanna Hooks - Last Filed: 12/07/19 10:59> - Discharge Information Clinical Impression/Diagnosis: C. difficile colitis, Sepsis, Lactic acidosis, Severe sepsis, Pneumonia Condition: Guarded
--- NOTE | 2019-12-05 10:37 | PDOC ---
Documentation entered by Katie Belcher SCRIBE, acting as scribe for Sanna Hooks MD. Sanna Hooks MD: This documentation has been prepared by the Simi stubbs Brenda, SCRIBE, under my direction and personally reviewed by me in its entirety. I confirm that the documentation accurately reflects all work, treatment, procedures, and medical decision making performed by me. Attending Attestation - Resident Resident Name: Gena Galvez - ED Attending Attestation I have performed the following: I have examined & evaluated the patient, The case was reviewed & discussed with the resident, I agree w/resident's findings & plan, Exceptions are as noted - HPI HPI: 12/05/19 10:24 69YOM COPD, Parkinsons, Schizophrenia, cerebral palsy, trach dependent, J tube dependent, anemia, chronic volvulus BIBEMS from [facility] for evaluation of sacral wounds, hypotension, fever he was recently admitted for chronic volvulus and clogged Jejunostomy tube pt transferred to tertiary care center in September for further evaluation and possible exploratory surgery to get access for nutrition; course c/b C diff colitis Pt is COVID 19 Negative on 10/10/19 12/05/19 11:02 - Physicial Exam PE: 12/05/19 10:34 General: Cachectic, arousable to pain stimuli, malaised appearing HEENT: NCAT, PERRL, EOMI, pale conjunctiva, anicteric, dry mucous membranes, clear oropharynx, no oral lesions.. Neck: neck supple, FROM Resp: Trach in place, bilateral rhonchorous sounds, no respiratory distress CVS: Very tachycardic, no murmurs, 2+ peripheral pulses throughout, no peripheral edema Abdomen: soft, protuberant, no tenderness elicited, no rebound or guarding. G- tube in place and left sided drain in the mid abdomen. Back: nontender, normal inspection and ROM' large sacral ulcer. MSK: Nonpitting edema distally, contracted extremities, increased tone. Extremities: Cool extremities, pedal edema. Neuro: Somnolent, sleeping, arousable to pain stimuli. Skin: Cool extremities, pale appearing -sacral ulcer, left foot with several dry ulcers with dressings in place. 12/05/19 14:47 - Critical Care Time Total Critical Care Time: 45 (severe sepsis, metabolic derangements) Critical Care Statement: The care of this patient involved high complexity decision making to prevent further life threatening deterioration of the pa ran's condition and/or to evaluate & treat vital organ system(s) failure or risk of failure. - Medical Decision Making 12/05/19 10:36 Vital Signs Temp Pulse Resp BP Pulse Ox 102.3 F H 141 H 19 99 12/05/19 10:00 12/05/19 09:56 12/05/19 09:56 12/05/19 09:56 febrile rectally tachycardic requiring suctioning trach in place ddx. fever, UTI, sacral wounds, bacteremia, dehydration, electrolyte/metabolic derangements, pna. aspiration. ileus, intra abdominal pathology/infection, toxic megacolon, NOAH/renal insufficiency. abscess/mass. pancreatitis, hepatitis. recently adm and transferred to [facility] for surgery evaluation, clogged J tube - known c diff infection, contact precautions. labs and lytes blood cultures vbg. lactic hydration antipyretics lozano cath reassess recheck labs 12/05/19 11:16 Laboratory results with significant leukocytosis of 30 1K, very acidotic. Lactic acidosis noted 6.0 will need to give aggressive hydration sepsis boluses and recheck. Normal creatinine function and electrolytes. Mild elevation in INR. IV vancomycin and Zosyn for empiric coverage of potentially complicated infection versus bacteremia, high risk given his recent admission at [facility] and current C. difficile Infection 12/05/19 14:48 CT chest abdomen pelvis with near complete atelectasis of the right lung worsened since September 2019. There is a cavitary infiltrate in the left upper lobe, concerning for acute pneumonia which patient is already received IV vancomycin and Zosyn. There is consolidation and atelectasis in the left lower lobe as well as well as a pleural effusion. Diffuse ascites. Diffuse thickening and edema of the small bowel loops consistent with a nonspecific enteritis, patient does have concurrent C. difficile colitis at this time. will add PO vancomycin for the c diff colitis. admitting to the ICU, Dr Melendez service, for higher level of care. Heart Score/ECG Review #1 ECG reviewed & interpreted by me at: 11:10 Compared to previous ECG there are: Changes noted 12/05/19 11:18 EKG sinus tachycardia 131 bpm, no interval abnormalities, narrow QRS, ST and T wave segments and morphology normal. Nonspecific T wave abnormalities Discharge - Discharge Information Problems reviewed: Yes Clinical Impression/Diagnosis: C. difficile colitis, Sepsis, Lactic acidosis, Severe sepsis, Pneumonia Condition: Guarded - Admission Yes - Follow up/Referral - Patient Discharge Instructions - Post Discharge Activity Vital Signs - Vital Signs Vital signs refused: No Pulse Rate: 108 Blood Pressure: 95/56 BP Location: Left Arm Blood Pressure position: Supine
[2019-12-05] MEDS ORDERED: SODIUM CHLORIDE 0.9% 500 ML INFUS.BAG IV ONE (10:41)
[2019-12-05] MEDS ORDERED: VANCOMYCIN 1 GM in D5W (PRE-DOCKED) 1,000 MG/250 ML IVPB ONE (10:41)
[2019-12-05] MEDS ORDERED: PIPERACILLIN/TAZOB 3.375 GM 3.375 GM in DEXTROSE 5%-WATER - 50 ML IVPB ONE (10:41)
[2019-12-05] MEDS ORDERED: ACETAMINOPHEN 1000 MG/100 ML VIAL (NON FORMULARY) IVPB ONE (10:43)
[2019-12-05] MEDS ORDERED: ACETAMINOPHEN INJECTION 100 ML IVPB ONE (10:44)
[2019-12-05 10:55] LABS: BASO % 0.7 % (0-2.0); EOS % 2.8 % (0-4.5); HEMATOCRIT 31.4 % (35.4-49); HEMOGLOBIN 9.8 GM/dL (11.7-16.9); LYMPH % 12.2 % (8-40); MCH 28.2 pg (25.7-33.7); MCHC 31.1 g/dl (32.0-35.9); MEAN CELL VOLUME 90.9 fl (80-96); MEAN PLT VOLUME 7.3 fl (7.5-11.1); MONO % 6.2 % (3.8-10.2); NEUT % 78.1 % (42.8-82.8); RBC 3.46 M/mm3 (4.00-5.60); RDW 17.9 % (11.9-15.9)
[2019-12-05 10:57] LABS: INR 2.38 (0.83-1.09); PROTHROMBIN TIME (PATIENT) 28.3 SEC (9.7-13.0)
[2019-12-05 10:59] LABS: PLATELET COUNT 1156 K/MM3 (134-434)
[2019-12-05 11:00] LABS: ACTIVATED PTT 32.9 SECONDS (25.2-36.5)
[2019-12-05 11:01] LABS: WHITE BLOOD COUNT 30.9 K/mm3 (4.0-10.0)
[2019-12-05 11:01] LABS: VENOUS BASE EXCESS -9.6 mmol/L (-2-2); VENOUS O2 SATURATION 20.6 % (70-80)
[2019-12-05 11:05] LABS: VENOUS PCO2 76.8 mmHg (38-52); VENOUS PH 7.048 (7.310-7.410)
[2019-12-05 11:09] LABS: ALBUMIN 1.1 g/dl (3.4-5.0); ALK PHOS 109 U/L (45-117); ANION GAP 9 MMOL/L (8-16); BILIRUBIN,TOTAL 0.3 mg/dL (0.2-1); BLOOD UREA NITROGEN 25.3 mg/dL (7-18); CALCIUM 9.1 mg/dL (8.5-10.1); CHLORIDE 111 mmol/L (98-107); CO2 22 mmol/L (21-32); CREATININE 1.1 mg/dL (0.55-1.3); GLUCOSE,RANDOM 106 mg/dL (74-106); POTASSIUM 5.6 mmol/L (3.5-5.1); SGOT/AST 22 U/L (15-37); SGPT/ALT 6 U/L (13-61); SODIUM 142 mmol/L (136-145); TOT PROT 7.5 g/dl (6.4-8.2)
[2019-12-05] MEDS ORDERED: PIPERACILLIN/TAZOB 3.375 GM 3.375 GM/50 ML BAG IVPB ONE (11:19)
[2019-12-05] MEDS ORDERED: LACTATED RINGERS SOLUTION 1000 ML INFUS.BAG IV ONE (11:30)
[2019-12-05] MEDS ORDERED: VANCOMYCIN 1 GRAM (PRE-DOCKED) 1,000 MG/250 ML BAG IVPB ONE (11:44)
[2019-12-05 12:28] LABS: ANISOCYTOSIS 1+; MACROCYTOSIS 0; PLATELET ESTIMATE INCREASED; TEAR DROP CELLS 1+
[2019-12-05 12:48] LABS: EPI CELLS >36 /uL (0-25.1); HYALINE CASTS 16 /uL (0-3.1); URINE APPEARANCE TURBID; URINE BILIRUBIN 2+ (NEGATIVE); URINE COLOR DK YELLOW; URINE GLUCOSE (UA) NEGATIVE (NEGATIVE); URINE KETONE TRACE (NEGATIVE); URINE LEUK ESTERASE 1+ (NEGATIVE); URINE NITRITE NEGATIVE (NEGATIVE); URINE PROTEIN TRACE (NEGATIVE); URINE WBC 41 /uL (0-25.8)
[2019-12-05] MEDS ORDERED: ACETAMINOPHEN 1000 MG/100 ML VIAL (NON FORMULARY) IVPB PRN (14:51)
[2019-12-05] MEDS ORDERED: LACTATED RINGERS SOLUTION 1,000 ML/1,000 ML INFUS.BAG IV SCH (15:00)
[2019-12-05] MEDS: SODIUM CHLORIDE 1,000 ML IV SCH (15:10)
[2019-12-05] MEDS ORDERED: PANTOPRAZOLE SODIUM 40 MG VIAL ONE (15:14)
[2019-12-05] MEDS: PANTOPRAZOLE SODIUM 40 MG VIAL IVPUSH SCH (15:15)
[2019-12-05 15:17] LABS: URINE RBC 36.6 /uL (0-23.9)
[2019-12-05 15:18] LABS: URINE BACTERIA 58.3 /uL (0-1359); URINE CRYSTALS PRESENT /hpf
--- NOTE | 2019-12-05 17:00 | CONSULT ---
Consult - text type - Consultation Consultation Note: Pulm/CCM Pt seen and examined in ICU CC: fever, tachypnea (pt non-verbal) HPI: obtained from medical record given pt underlying conditon Briefly Mr Street is a 69 y/o man with functional quadraplegia, cerebral palsy, parkinsons, chronic trach/JT with recurrent volvulous recently admitted at [facility] for possible resection now being transferred from [facility] for fever, purulent drainage from multiple decubitus ulcers on sacrum and hips. In ED pt was tachycardic, tachypneic, febrile. WBC 30, lacate 6. Received 2L IVF, broad spectrum abx to cover PNA and C-diff. CT chest shows bilateral PNA, near complete opacification of R lung, cavitary infiltrate in SHANIKA. CTAP with diffuse enteritis and ascities but no apparent obstruction and no free air. Transferred to ICU for further management. PMhx: -Parkinsons -Cerebral Palsy -recurrent volulous -recurrent pneumonia -vent dependant PSX: -tracheostomy -PEG-J Social: MD resident, no toxic habits Family: Non-contrib ROS; unable 2/2 pt clinical condition Vital Signs Temp 98.6 F 12/05/19 11:45 Pulse 110 H 12/05/19 15:10 Resp 26 H 12/05/19 16:46 BP 97/58 L 12/05/19 15:10 Pulse Ox 98 12/05/19 16:46 Intake & Output 12/04/19 12/05/19 12/05/19 23:59 11:59 23:59 Intake Total 2300 Output Total 10 10 Balance -10 2290 Weight 45.359 kg Intake: IV 1999 NS 2000 IVPB 300 Output: Urine 10 10 [place] 10 10 Other: Voiding Method Indwelling Catheter Height 5 ft 7 in Body Mass Index (BMI) 15.6 Weight Measurement Method Est/Stated by Patient Laboratory Last Values WBC 30.9 K/mm3 (4.0-10.0) H* 12/05/19 10:35 RBC 3.46 M/mm3 (4.00-5.60) L 12/05/19 10:35 Hgb 9.8 GM/dL (11.7-16.9) L 12/05/19 10:35 Hct 31.4 % (35.4-49) L 12/05/19 10:35 MCV 90.9 fl (80-96) 12/05/19 10:35 MCH 28.2 pg (25.7-33.7) 12/05/19 10:35 MCHC 31.1 g/dl (32.0-35.9) L 12/05/19 10:35 RDW 17.9 % (11.9-15.9) H 12/05/19 10:35 Plt Count 1156 K/MM3 (134-434) H D 12/05/19 10:35 MPV 7.3 fl (7.5-11.1) L 12/05/19 10:35 Absolute Neuts (auto) 24.1 K/mm3 (1.5-8.0) H 12/05/19 10:35 Neutrophils % 78.1 % (42.8-82.8) 12/05/19 10:35 Neutrophils % (Manual) 50.5 % (42.8-82.8) D 12/05/19 10:35 Band Neutrophils % 4.8 % 12/05/19 10:35 Lymphocytes % 12.2 % (8-40) D 12/05/19 10:35 Lymphocytes % (Manual) 8.6 % (8-40) D 12/05/19 10:35 Monocytes % 6.2 % (3.8-10.2) 12/05/19 10:35 Monocytes % (Manual) 9 % (3.8-10.2) 12/05/19 10:35 Eosinophils % 2.8 % (0-4.5) 12/05/19 10:35 Eosinophils % (Manual) 25.7 % (0-4.5) H D 12/05/19 10:35 Basophils % 0.7 % (0-2.0) 12/05/19 10:35 Basophils % (Manual) 0.0 % (0-2.0) 12/05/19 10:35 Myelocytes % (Man) 1 % (0-2) 12/05/19 10:35 Promyelocytes % (Man) 0 % (0-2) 12/05/19 10:35 Blast Cells % (Manual) 0 % (0-0) 12/05/19 10:35 Nucleated RBC % 0 % (0-0) 12/05/19 10:35 Metamyelocytes 0 % (0-2) 12/05/19 10:35 Hypochromia 0 12/05/19 10:35 Platelet Estimate Increased 12/05/19 10:35 Platelet Comment Present 12/05/19 10:35 Polychromasia 1+ 12/05/19 10:35 Poikilocytosis 1+ 12/05/19 10:35 Anisocytosis 1+ 12/05/19 10:35 Microcytosis 1+ 12/05/19 10:35 Macrocytosis 0 12/05/19 10:35 Spherocytes 1+ 12/05/19 10:35 Tear Drop Cells 1+ 12/05/19 10:35 Acanthocytes (Spur) 1+ 12/05/19 10:35 PT with INR 28.30 SEC (9.7-13.0) H 12/05/19 10:35 INR 2.38 (0.83-1.09) H 12/05/19 10:35 PTT (Actin FS) 32.9 SECONDS (25.2-36.5) 12/05/19 10:35 VBG pH 7.048 (7.310-7.410) L* 12/05/19 10:40 POC VBG pCO2 76.8 mmHg (38-52) H* 12/05/19 10:40 POC VBG pO2 22.0 mmHg (28-48) L 12/05/19 10:40 VBG HCO3 20.7 mmol/L (23-29) L 12/05/19 10:40 VBG O2 Sat (Yen) 20.6 % (70-80) L 12/05/19 10:40 VBG Base Excess -9.6 mmol/L (-2-2) L 12/05/19 10:40 Sodium 142 mmol/L (136-145) 12/05/19 10:35 Potassium 5.6 mmol/L (3.5-5.1) H 12/05/19 10:35 Chloride 111 mmol/L (98-107) H 12/05/19 10:35 Carbon Dioxide 22 mmol/L (21-32) 12/05/19 10:35 Anion Gap 9 MMOL/L (8-16) 12/05/19 10:35 BUN 25.3 mg/dL (7-18) H 12/05/19 10:35 Creatinine 1.1 mg/dL (0.55-1.3) 12/05/19 10:35 Est GFR (CKD-EPI)AfAm 78.97 12/05/19 10:35 Est GFR (CKD-EPI)NonAf 68.13 12/05/19 10:35 Random Glucose 106 mg/dL (74-106) 12/05/19 10:35 Lactic Acid 6.0 mmol/L (0.4-2.0) H* 12/05/19 10:35 Calcium 9.1 mg/dL (8.5-10.1) 12/05/19 10:35 Total Bilirubin 0.3 mg/dL (0.2-1) 12/05/19 10:35 AST 22 U/L (15-37) 12/05/19 10:35 ALT 6 U/L (13-61) L 12/05/19 10:35 Alkaline Phosphatase 109 U/L (45-117) 12/05/19 10:35 Creatine Kinase 50 U/L (26-308) 12/05/19 10:35 CK-MB (CK-2) 1.4 ng/mL (0.5-3.6) 12/05/19 10:35 Troponin I < 0.02 ng/ml (0.00-0.05) 12/05/19 10:35 Total Protein 7.5 g/dl (6.4-8.2) 12/05/19 10:35 Albumin 1.1 g/dl (3.4-5.0) L 12/05/19 10:35 Urine Color Dk yellow 12/05/19 12:10 Urine Appearance Turbid 12/05/19 12:10 Urine pH 5.0 (5.0-8.0) D 12/05/19 12:10 Ur Specific [place] 1.029 (1.010-1.035) 12/05/19 12:10 Urine Protein Trace (NEGATIVE) 12/05/19 12:10 Urine Glucose (UA) Negative (NEGATIVE) 12/05/19 12:10 Urine Ketones Trace (NEGATIVE) H 12/05/19 12:10 Urine Blood Negative (NEGATIVE) 12/05/19 12:10 Urine Nitrite Negative (NEGATIVE) 12/05/19 12:10 Urine Bilirubin 2+ (NEGATIVE) H 12/05/19 12:10 Urine Urobilinogen 1.0 mg/dL (0.2-1.0) 12/05/19 12:10 Ur Leukocyte Esterase 1+ (NEGATIVE) H 12/05/19 12:10 Urine WBC (Auto) 41 /uL (0-25.8) 12/05/19 12:10 Urine RBC (Auto) 36.6 /uL (0-23.9) 12/05/19 12:10 Urine Casts (Auto) 16 /uL (0-3.1) 12/05/19 12:10 U Epithel Cells (Auto) >36 /uL (0-25.1) 12/05/19 12:10 Urine Crystals (Auto) Present /hpf 12/05/19 12:10 Urine Bacteria (Auto) 58.3 /uL (0-1359) 12/05/19 12:10 Blood Type O POSITIVE 12/05/19 10:40 PE: Gen: chronically ill appearing contracted vented man Heent: bitemporal wasting, R reactive pupil, L surgical, trach Pulm: coarse rhonci bilaterally R> L, no wheeze CV: tachy, no M/r/g appreciated ABD: distended, typanic, hypoactive BS, erythema around J-tube Ext: no edema, contracted Neuro: withdrawals to noxious stimuli, contracted, grimaces, does not follow A/ 69 y/o chronically critically ill man with Cerebral palsy and Parkinsons now with severe sepsis, mild coagulopathy, and lactic acidosis with multiple possible sources: multilobar pneumonia, intrabdominal/Cdiff, infectious wounds P/ -Broad spectrum abx, on zosyn, vanco, Po Vanco and Metro. Given ESBL hx and MDR pseudomonas hx would have low threshold to escalate if spike another fever and/or progresses to shock. ID to consult. Would need carbapenem ( intermediate sens to tessie, ? erta) -volume resuscitation, start standing IVF -repeat lactate now -Vit K for sepsis induced coagulopathy -will need WOC nurse (entered) vs surgical consult for debridement -full vent support, not candidate for weaning -GOC discussion if family available -SCD for DVT preston Mcpherson ACNP [phone] 45 min CCT
[2019-12-05] MEDS ORDERED: PHYTONADIONE 10 MG/1 ML AMP IVPB ONE (17:47)
[2019-12-05 18:33] VITALS: BMI 16.2
[2019-12-05] MEDS: VANCOMYCIN 250 MG/5 ML ORAL SOLUTION PO SCH (19:00)
[2019-12-05] MEDS ORDERED: PT OWN MED DRAWER 7, Y5N ONE (20:36)
[2019-12-05] MEDS ORDERED: VANCOMYCIN 750 MG in DEXTROSE 5%-WATER - 250 ML IVPB SCH (21:00)
[2019-12-05] MEDS ORDERED: PIPERACILLIN/TAZOBACTAM 3.375 GM VIAL IVPB ONE (21:44)
[2019-12-05] MEDS ORDERED: DEXTROSE 5%-WATER - 50 ML IVPB ONE (21:44)
[2019-12-05] MEDS ORDERED: PIPERACILLIN/TAZOB 3.375 GM 3.375 GM in DEXTROSE 5%-WATER - 50 ML IVPB SCH (22:00)
[2019-12-06] MEDS: VANCOMYCIN 250 MG/5 ML ORAL SOLUTION PO SCH ×5 (00:59→23:08)
--- NOTE | 2019-12-06 07:47 | PN ---
Progress Note (short form) - Note Progress Note: Patient seen and examined in ICU. Not in acute distress, alert, not following commands. Vent depended. 400/12/50%/+5 ABG Results ABG pH 7.433 (7.350-7.450) 12/06/19 08:30 ABG HCO3 23.6 mmol/L (22-27) 12/06/19 08:30 ABG O2 Sat (Measured) 98.1 mmHg (95-98) H 12/06/19 08:30 ABG O2 Content No Result Required. 12/06/19 08:30 ABG Base Excess -0.5 mmol/L (-2-2) 12/06/19 08:30 Vital Signs Period Temp Pulse Resp BP Sys/Gomez Pulse Ox Last 24 Hr 96.9 F-98.4 F 89-111 14-28 84-102/46-59 93-100 Active Medications Acetaminophen (Ofirmev Injection -) 1,000 mg IVPB Q6H PRN PRN Reason: FEVER Stop: 12/06/19 14:51 Sodium Chloride (Normal Saline -) 1,000 mls @ 75 mls/hr IV ASDIR ELOINA Last Admin: 12/05/19 15:10 Dose: 75 mls/hr Documented by: Metronidazole (Flagyl 250mg Premixed Ivpb -) 250 mg in 50 mls @ 50 mls/hr IVPB Q8H-IV ELOINA Last Admin: 12/06/19 12:46 Dose: 50 mls/hr Documented by: Vancomycin HCl 750 mg/ (Dextrose) 250 mls @ 250 mls/hr IVPB Q12H ELOINA; Protocol Last Admin: 12/06/19 12:46 Dose: 250 mls/hr Documented by: Piperacillin Sod/Tazobactam (Sod 3.375 gm/ Dextrose) 50 mls @ 100 mls/hr IVPB Q8H-IV ELOINA; Protocol Last Admin: 12/06/19 12:46 Dose: 100 mls/hr Documented by: Pantoprazole Sodium (Protonix Iv) 40 mg IVPUSH DAILY ELOINA Last Admin: 12/06/19 12:46 Dose: 40 mg Documented by: Vancomycin HCl (Vancomycin Oral Solution) 500 mg PO Q6HPO ELOINA Last Admin: 12/06/19 13:06 Dose: 500 mg Documented by: PE: Gen: chronically ill appearing contracted vented man Heent: bitemporal wasting, R reactive pupil, L surgical, trach Pulm: coarse rhonci bilaterally R> L, no wheeze CV: S1S2, no M/r/g appreciated ABD: distended, typanic, hypoactive BS, erythema around J-tube Ext: no edema, contracted Neuro: withdrawals to noxious stimuli, contracted, grimaces, does not follow Intake & Output 12/03/19 12/04/19 12/05/19 12/06/19 23:59 23:59 23:59 23:59 Intake Total 2525 350 Output Total 20 600 Balance 2505 -250 Weight 47.174 kg 47.174 kg A/ Chronic respiratory failure vent dependent C-diff colitis Parkinsons Sepsis 2/2 cavitary pneumonia +/- infectious wounds Coagulopathy CP Lactic acidosis (resolved) Leukocytosis P/ -Vent support, not candidate for weaning -ABG in am -Acetaminophen for fevers -Continue IVF -Continue antimicrobial coverage (Flagyl, vanco, zosyn) -I/O, trend and replete lytes, keep Mg>2, K>4 -Transfuse for Hgb<7, Plt<10 -GOC discussion if family available -SCD for DVT prophy -PPI for PUD ppx Harriet Major ACNP [phone]
[2019-12-06] MEDS ORDERED: PIPERACILLIN/TAZOBACTAM 3.375 GM VIAL IVPB ONE ×3 (08:47→17:27)
[2019-12-06] MEDS ORDERED: PT OWN MED DRAWER 7, Y5N ONE ×4 (08:47→22:07)
[2019-12-06] MEDS ORDERED: DEXTROSE 5%-WATER - 50 ML IVPB ONE ×3 (08:47→17:27)
[2019-12-06 09:18] LABS: ARTERIAL BLD GAS O2 SATURATION 98.1 mmHg (95-98); ARTERIAL BLOOD GAS BASE EXCESS -0.5 mmol/L (-2-2); ARTERIAL BLOOD GAS PO2 108.7 mmHg (80-100); ARTERIAL BLOOD GAS pH 7.433 (7.350-7.450)
[2019-12-06 09:23] LABS: ALLENS TEST POSITIVE; VENT MODE A/C; VENT RATE 12
--- NOTE | 2019-12-06 09:33 | PN ---
Progress Note, Physician - Current Medication List Current Medications: Active Medications Acetaminophen (Ofirmev Injection -) 1,000 mg IVPB Q6H PRN PRN Reason: FEVER Stop: 12/06/19 14:51 Sodium Chloride (Normal Saline -) 1,000 mls @ 75 mls/hr IV ASDIR ELOINA Last Admin: 12/05/19 15:10 Dose: 75 mls/hr Documented by: Piperacillin Sod/Tazobactam (Sod 3.375 gm/ Dextrose) 50 mls @ 100 mls/hr IVPB BID ELOINA; Protocol Piperacillin Sod/Tazobactam (Sod 3.375 gm/ Dextrose) 50 mls @ 100 mls/hr IVPB BID ELOINA; Protocol Stop: 12/06/19 10:29 Last Admin: 12/05/19 22:51 Dose: 100 mls/hr Documented by: Metronidazole (Flagyl 250mg Premixed Ivpb -) 250 mg in 50 mls @ 50 mls/hr IVPB Q8H-IV ELOINA Last Admin: 12/06/19 01:00 Dose: 50 mls/hr Documented by: Vancomycin HCl 750 mg/ (Dextrose) 150 mls @ 150 mls/hr IVPB Q12H ELOINA; Protocol Vancomycin HCl 750 mg/ (Dextrose) 250 mls @ 250 mls/hr IVPB Q12H ELOINA; Protocol Stop: 12/06/19 09:59 Last Admin: 12/05/19 22:50 Dose: 250 mls/hr Documented by: Pantoprazole Sodium (Protonix Iv) 40 mg IVPUSH DAILY ELOINA Last Admin: 12/05/19 15:15 Dose: 40 mg Documented by: Vancomycin HCl (Vancomycin Oral Solution) 500 mg PO Q6HPO ELOINA Last Admin: 12/06/19 06:21 Dose: 500 mg Documented by: - Objective Vital Signs: Vital Signs Temperature 96.9 F L 12/06/19 07:00 Pulse Rate 93 H 12/06/19 09:13 Respiratory Rate 17 12/06/19 08:35 Blood Pressure 99/58 L 12/06/19 07:00 O2 Sat by Pulse Oximetry (%) 99 12/06/19 09:13 Labs: CBC, BMP 12/05/19 10:35 12/05/19 10:35 INR, PTT INR 2.38 (0.83-1.09) H 12/05/19 10:35
--- NOTE | 2019-12-06 09:46 | PN ---
Progress Note (short form) - Note Progress Note: ID consult dictated imp/reccd 69 yo [place]/04 with lethargy, hypotension,-he was recently admitted to [facility]10/13 to 12/01 NO DETAILS AVAILABLE OF THIS ADMISSION-NO TRANSFER NOTE SENT he was transferred on po vancomycin-mar noted chronic resp failure trach to vent gt and jt contracted with multiple decubs now in ICU alert wbc is 30k chest ct with left lung infiltrate, RUL cavitary infiltrate multiple foulsmelling purulent draining pressure ulcers sepsis cavitary pneumonia, bilateral pneumonia infected decubiti abdominal wall cellulitis history of cdiff on po vancomycin currently no pressors hay culture send sputum culture send cdiff chronic resp failure ISOLATE vancomycin zosyn po vancomycin surgery to debride infected wounds over 40 minutes spent reviewing chart and examining this critically ill ICU patient have requested notes from [place] morining labs are pending Problem List - Problems (1) Sepsis Code(s): A41.9 - SEPSIS, UNSPECIFIED ORGANISM (2) Cavitary pneumonia Code(s): J18.9 - PNEUMONIA, UNSPECIFIED ORGANISM; J98.4 - OTHER DISORDERS OF LUNG (3) Infected decubitus ulcer Code(s): L89.90 - PRESSURE ULCER OF UNSPECIFIED SITE, UNSPECIFIED STAGE; L08.9 - LOCAL INFECTION OF THE SKIN AND SUBCUTANEOUS TISSUE, UNSP (4) Recurrent Clostridioides difficile diarrhea Code(s): A04.71 - ENTEROCOLITIS DUE TO CLOSTRIDIUM DIFFICILE, RECURRENT (5) Abdominal wall cellulitis Code(s): L03.311 - CELLULITIS OF ABDOMINAL WALL (6) Chronic respiratory failure Code(s): J96.10 - CHRONIC RESPIRATORY FAILURE, UNSP W HYPOXIA OR HYPERCAPNIA Qualifiers:
[2019-12-06 11:07] LABS: HEMATOCRIT 24.6 % (35.4-49); HEMOGLOBIN 7.6 GM/dL (11.7-16.9); MCHC 31.1 g/dl (32.0-35.9); MEAN PLT VOLUME 7.6 fl (7.5-11.1); PLATELET COUNT 710 K/MM3 (134-434); RBC 2.73 M/mm3 (4.00-5.60); RDW 17.6 % (11.9-15.9); WHITE BLOOD COUNT 24.8 K/mm3 (4.0-10.0)
[2019-12-06 11:36] LABS: ALBUMIN 0.8 g/dl (3.4-5.0); BILIRUBIN,TOTAL 0.2 mg/dL (0.2-1); BLOOD UREA NITROGEN 24.2 mg/dL (7-18); CALCIUM 8.1 mg/dL (8.5-10.1); CREATININE 0.5 mg/dL (0.55-1.3); MAGNESIUM 1.8 mg/dL (1.8-2.4); POTASSIUM 4.5 mmol/L (3.5-5.1)
[2019-12-06 12:03] LABS: TOT PROT 5.5 g/dl (6.4-8.2)
[2019-12-06] MEDS: PANTOPRAZOLE SODIUM 40 MG VIAL IVPUSH SCH (12:46)
[2019-12-06] MEDS: PIPERACILLIN/TAZOB 3.375 GM 3.375 GM in DEXTROSE 5%-WATER - 50 ML IVPB SCH ×2 (12:46→17:19)
[2019-12-06] MEDS: VANCOMYCIN 750 MG in DEXTROSE 5%-WATER - 250 ML IVPB SCH ×2 (12:46→23:07)
--- NOTE | 2019-12-06 13:50 | HP ---
Admitting History and Physical - Primary Care Physician PCP: Mindy Badillo - Admission Chief Complaint: SEPSIS/HYPOTENSION History of Present Illness: 69YOM COPD, Parkinsons, Schizophrenia, cerebral palsy, trach dependent, J tube dependent, anemia, chronic volvulus BIBEMS from [facility] for evaluation of sacral wounds, hypotension, fever he was recently admitted for chronic volvulus and clogged Jejunostomy tube pt transferred to [facility] center in September for further evaluation and possible exploratory surgery to get access for nutrition; course c/b C diff colitis Pt is COVID 19 Negative on 10/10/19 History Source: Medical Record, Transfer Record Limitations to Obtaining History: Clinical Condition, Dementia, Poor Historian - Past Medical History 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: Parkinson's, Seizure, Other (CP, MR) Pulmonary: Yes: Bronchitis, COPD, O2 Dependent (trach- vent dependent), Pneumonia, Previously Intubated, Other (Vent dependent via trach) Renal/: Yes: Other Infectious Disease: Yes: Other (resistant Pseudomonas) Psych: Yes: Schizophrenia Musculoskeletal: Yes: Other (functional quadriplegia) - Smoking History Smoking history: Unknown if ever smoked Have you smoked in the past 12 months: No - Alcohol/Substance Use Hx Alcohol Use: No History of Substance Use: reports: None - Social History ADL: Support Services History of Recent Travel: No Home Medications - Allergies Allergies/Adverse Reactions: Allergies Allergy/AdvReac Type Severity Reaction Status Date / Time No Known Allergies Allergy Verified 10/10/19 20:41 - Home Medications Home Medications: Ambulatory Orders Acetaminophen [Tylenol] 650 mg PO TID 10/11/19 Collagenase Clostridium Hist. [Santyl -] 1 applic TP DAILY 10/11/19 Famotidine [Pepcid] 20 mg PO DAILY 10/11/19 Ferrous Sulfate [Feosol] 300 mg GT DAILY 10/11/19 L. Acidophilus/Pectin, [place] [Acidophilus Capsule] 1 each PO DAILY 10/11/19 Lamotrigine [Lamotrigine ER] 50 mg PO BID 10/11/19 Multivit-Minerals [Certavite-Antioxidant Liquid] 15 ml PO DAILY 10/11/19 Nystatin Cream [Mycostatin Cream -] 1 applic BID 10/11/19 Omeprazole 20 mg PO DAILY 10/11/19 clonazePAM [Klonopin -] 0.5 mg PO DAILY 10/11/19 Ascorbic Acid [C-500] 500 mg PO DAILY 12/05/19 Cinacalcet HCl [Sensipar] 60 mg PO 12/05/19 Nystatin Cream [Mycostatin Cream -] 12/05/19 Silver Sulfadiazine BID 12/05/19 Vancomycin HCl [Firvanq] 125 mg PO BID 12/05/19 Warfarin Sodium 3 mg PO DAILY 12/05/19 Zinc Sulfate [Orazinc] 220 mg PO DAILY 12/05/19 Review of Systems - Review of Systems Constitutional: reports: Weakness Cardiovascular: reports: Shortness of Breath Respiratory: reports: SOB Gastrointestinal: reports: Other Genitourinary: reports: Incontinence Musculoskeletal: reports: Muscle Weakness Integumentary: reports: Wound Neurological: reports: Pre-Existing Deficit, Weakness Physical Examination Vital Signs: Vital Signs Temperature 96.9 F L 12/06/19 07:00 Pulse Rate 93 H 12/06/19 09:13 Respiratory Rate 17 12/06/19 11:52 Blood Pressure 84/51 L 12/06/19 09:00 O2 Sat by Pulse Oximetry (%) 99 12/06/19 11:52 Constitutional: Yes: Moderate Distress Cardiovascular: Yes: Pulse Irregular Respiratory: Yes: Mechanically Ventilated (TRACHCOLLAR) Gastrointestinal: Yes: Soft, Distention Renal/: Yes: [place] Present Musculoskeletal: Yes: Muscle Weakness Integumentary: Yes: Pressure Ulcer Wound/Incision: Yes: Unapproximated Labs: CBC, BMP 12/06/19 10:37 12/06/19 10:37 Problem List - Problems (1) Lactic acidosis Code(s): E87.2 - ACIDOSIS (2) Severe sepsis Code(s): A41.9 - SEPSIS, UNSPECIFIED ORGANISM; R65.20 - SEVERE SEPSIS WITHOUT SEPTIC SHOCK (3) Anemia Code(s): D64.9 - ANEMIA, UNSPECIFIED Qualifiers: (4) Back wound Code(s): S21.209A - UNSP OPN WND UNSP BK WL OF THORAX W/O PENET THOR CAV, INIT (5) COPD (chronic obstructive pulmonary disease) Code(s): J44.9 - CHRONIC OBSTRUCTIVE PULMONARY DISEASE, UNSPECIFIED Qualifiers: (6) Cerebral palsy Code(s): G80.9 - CEREBRAL PALSY, UNSPECIFIED Qualifiers: (7) Chronic respiratory failure Code(s): J96.10 - CHRONIC RESPIRATORY FAILURE, UNSP W HYPOXIA OR HYPERCAPNIA Qualifiers: (8) Pleural effusion Code(s): J90 - PLEURAL EFFUSION, NOT ELSEWHERE CLASSIFIED (9) Pneumonia Code(s): J18.9 - PNEUMONIA, UNSPECIFIED ORGANISM (10) Pressure ulcer of back Code(s): L89.109 - PRESSURE ULCER OF UNSP PART OF BACK, UNSPECIFIED STAGE Qualifiers: Pressure injury stage: stage 3 Qualified Code(s): L89.103 - Pressure ulcer of unspecified part of back, stage 3 (11) Seizure disorder Code(s): G40.909 - EPILEPSY, UNSP, NOT INTRACTABLE, WITHOUT STATUS EPILEPTICUS (12) Severe malnutrition Code(s): E43 - UNSPECIFIED SEVERE PROTEIN-CALORIE MALNUTRITION Assessment/Plan IV ABX PER ID CHECK CULTURES VENT SUPPORT SURGERY EVAL WOUND CARE IV FLUIDS GTUBE ON HOLD POOR OVERALL PROGNOSIS GOC NEED REVIEW
--- NOTE | 2019-12-06 14:09 | CON.NEP ---
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: Parkinson's, Seizure, Other (CP, MR) Pulmonary: Yes: Bronchitis, COPD, O2 Dependent (trach- vent dependent), Pneumonia, Previously Intubated, Other (Vent dependent via trach) Renal/: Yes: Other Infectious Disease: Yes: Other (resistant Pseudomonas) Psych: Yes: Schizophrenia Musculoskeletal: Yes: Other (functional quadriplegia) - Alcohol/Substance Use Hx Alcohol Use: No History of Substance Use: reports: None - Smoking History Smoking history: Unknown if ever smoked Have you smoked in the past 12 months: No - Social History Usual Living Arrangement: Fdc ADL: Support Services History of Recent Travel: No Home Medications - Allergies Allergies/Adverse Reactions: Allergies Allergy/AdvReac Type Severity Reaction Status Date / Time No Known Allergies Allergy Verified 10/10/19 20:41 - Home Medications Home Medications: Ambulatory Orders Acetaminophen [Tylenol] 650 mg PO TID 10/11/19 Collagenase Clostridium Hist. [Santyl -] 1 applic TP DAILY 10/11/19 Famotidine [Pepcid] 20 mg PO DAILY 10/11/19 Ferrous Sulfate [Feosol] 300 mg GT DAILY 10/11/19 L. Acidophilus/Pectin, [place] [Acidophilus Capsule] 1 each PO DAILY 10/11/19 Lamotrigine [Lamotrigine ER] 50 mg PO BID 10/11/19 Multivit-Minerals [Certavite-Antioxidant Liquid] 15 ml PO DAILY 10/11/19 Nystatin Cream [Mycostatin Cream -] 1 applic BID 10/11/19 Omeprazole 20 mg PO DAILY 10/11/19 clonazePAM [Klonopin -] 0.5 mg PO DAILY 10/11/19 Ascorbic Acid [C-500] 500 mg PO DAILY 12/05/19 Cinacalcet HCl [Sensipar] 60 mg PO 12/05/19 Nystatin Cream [Mycostatin Cream -] 12/05/19 Silver Sulfadiazine BID 12/05/19 Vancomycin HCl [Firvanq] 125 mg PO BID 12/05/19 Warfarin Sodium 3 mg PO DAILY 12/05/19 Zinc Sulfate [Orazinc] 220 mg PO DAILY 12/05/19 Nephrology Consult - Height Height: 5 ft 7 in - Weight Weight: 104 lb - BMI Body Mass Index (BMI): 16.2 - Lab Results CBC,BMP: CBC, BMP 12/06/19 10:37 12/06/19 10:37 Anion Gap: Anion Gap Anion Gap 6 MMOL/L (8-16) L 12/06/19 10:37 - Physical Examination Vital Signs: Vital Signs Temperature 96.9 F L 12/06/19 07:00 Pulse Rate 93 H 12/06/19 09:13 Respiratory Rate 17 12/06/19 11:52 Blood Pressure 84/51 L 12/06/19 09:00 O2 Sat by Pulse Oximetry (%) 99 12/06/19 11:52 Assessment/Plan 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 for evaluation of probable infected sacral wounds, IV vancomycin and Zosyn empirical coverage
--- NOTE | 2019-12-06 14:56 | CON.CARD ---
Consult Consult Specialty:: Cardiology Referred by:: Dr. Melendez Reason for Consultation:: CHF - History of Present Illness Chief Complaint: sent from [place] for hypotension/fever History of Present Illness: 69 year old man with pmh COPD, parkinsons, schizophrenia, CP, trach, J tube, anemia, chronic volvulus, chronic sacral wounds, recent admission for clogged J tub, recent Cdiff colitis, admitted from [place] for fever and hypotension. CT showing cavitary pneumonia. 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, Seizure, Other (CP, MR) Pulmonary: Yes: Bronchitis, COPD, O2 Dependent (trach- vent dependent), Pneumonia, Previously Intubated, Other (Vent dependent via trach) Renal/: Yes: Other Infectious Disease: Yes: Other (resistant Pseudomonas) Psych: Yes: Schizophrenia Musculoskeletal: Yes: Other (functional quadriplegia) - Alcohol/Substance Use Hx Alcohol Use: No History of Substance Use: reports: None - Smoking History Smoking history: Unknown if ever smoked Have you smoked in the past 12 months: No - Social History Usual Living Arrangement: Custodial ADL: Support Services History of Recent Travel: No Home Medications - Allergies Allergies/Adverse Reactions: Allergies Allergy/AdvReac Type Severity Reaction Status Date / Time No Known Allergies Allergy Verified 10/10/19 20:41 - Home Medications Home Medications: Ambulatory Orders Acetaminophen [Tylenol] 650 mg PO TID 10/11/19 Collagenase Clostridium Hist. [Santyl -] 1 applic TP DAILY 10/11/19 Famotidine [Pepcid] 20 mg PO DAILY 10/11/19 Ferrous Sulfate [Feosol] 300 mg GT DAILY 10/11/19 L. Acidophilus/Pectin, [place] [Acidophilus Capsule] 1 each PO DAILY 10/11/19 Lamotrigine [Lamotrigine ER] 50 mg PO BID 10/11/19 Multivit-Minerals [Certavite-Antioxidant Liquid] 15 ml PO DAILY 10/11/19 Nystatin Cream [Mycostatin Cream -] 1 applic BID 10/11/19 Omeprazole 20 mg PO DAILY 10/11/19 clonazePAM [Klonopin -] 0.5 mg PO DAILY 10/11/19 Ascorbic Acid [C-500] 500 mg PO DAILY 12/05/19 Cinacalcet HCl [Sensipar] 60 mg PO 12/05/19 Nystatin Cream [Mycostatin Cream -] 12/05/19 Silver Sulfadiazine BID 12/05/19 Vancomycin HCl [Firvanq] 125 mg PO BID 12/05/19 Warfarin Sodium 3 mg PO DAILY 12/05/19 Zinc Sulfate [Orazinc] 220 mg PO DAILY 12/05/19 Family Medical History Family History: Unable to Obtain Review of Systems - Review of Systems Constitutional: reports: Fever, Lethargy Vital Signs: Vital Signs Temperature 96.9 F L 12/06/19 07:00 Pulse Rate 93 H 12/06/19 09:13 Respiratory Rate 17 12/06/19 11:52 Blood Pressure 84/51 L 12/06/19 09:00 O2 Sat by Pulse Oximetry (%) 99 12/06/19 11:52 Respiratory: Yes: Diminished, Mechanically Ventilated. No: Rales, Rhonchi Cardiovascular: Yes: Tachycardia. No: Regular Rate and Rhythm, Bradycardia, Pulse Irregular, Gallop, Rub, Varicosities JVD: No Carotid Bruit: No PMI: Non-Displaced Heart Sounds: Yes: S1, S2. No: Split S2, S3, S4, Clicks, Gallop, Rub, Bruit Murmur: No: Systolic Murmur, Diastolic Murmur Edema: No Neurological: No: Alert, Oriented Psychiatric: No: Alert, Oriented - Other Data Labs, Other Data: CBC, BMP 12/06/19 10:37 12/06/19 10:37 INR, PTT INR 2.38 (0.83-1.09) H 12/05/19 10:35 sinus tach 130bpm, no sig ST abnl Imaging - Results Chest X-ray: Report Reviewed, Image Reviewed EKG: Report Reviewed, Image Reviewed Other: Report Reviewed, Image Reviewed (tele-sinus rhythm, sinus tach, no sig arrhythmias) Assessment/Plan 69 year old man with pmh COPD, parkinsons, schizophrenia, CP, trach, J tube, anemia, chronic volvulus, chronic sacral wounds, recent admission for clogged J tub, recent Cdiff colitis, admitted from [place] for fever and hypotension. CT showing cavitary pneumonia. Admitted with sepsis with multiple possible sources Cavitary pneumonia Sinus tach secondary to sepsis No evidence of CHF Receiving IVF for sepsis No additional cardiac work up is needed. Please call with any questions.
[2019-12-06] MEDS: SODIUM CHLORIDE 1,000 ML IV SCH (16:00)
[2019-12-06] MEDS: MUPIROCIN 2% TOPICAL OINTMENT 22 GM TUBE TP SCH (23:06)
[2019-12-06] MEDS: CHLORHEXIDINE GLUCONATE 4% CLEANSER FOR DECOLONIZATION TP SCH (23:07)
[2019-12-07] MEDS: PIPERACILLIN/TAZOB 3.375 GM 3.375 GM in DEXTROSE 5%-WATER - 50 ML IVPB SCH ×3 (02:30→17:15)
[2019-12-07] MEDS ORDERED: DEXTROSE 5%-WATER - 50 ML IVPB ONE ×3 (02:33→16:53)
[2019-12-07] MEDS ORDERED: PIPERACILLIN/TAZOBACTAM 3.375 GM VIAL IVPB ONE ×3 (02:33→16:53)
[2019-12-07] MEDS ORDERED: PT OWN MED DRAWER 7, Y5N ONE ×3 (02:33→20:41)
[2019-12-07] MEDS: VANCOMYCIN 250 MG/5 ML ORAL SOLUTION PO SCH ×3 (05:54→17:16)
[2019-12-07] MEDS: SODIUM CHLORIDE 1,000 ML IV SCH ×2 (05:54→16:50)
[2019-12-07 07:33] LABS: BASO % 0.4 % (0-2.0); EOS % 0.8 % (0-4.5); HEMATOCRIT 23.1 % (35.4-49); HEMOGLOBIN 7.2 GM/dL (11.7-16.9); LYMPH % 5.6 % (8-40); MCH 27.6 pg (25.7-33.7); MCHC 31.2 g/dl (32.0-35.9); MEAN CELL VOLUME 88.6 fl (80-96); MEAN PLT VOLUME 6.9 fl (7.5-11.1); MONO % 4.4 % (3.8-10.2); NEUT % 88.8 % (42.8-82.8); PLATELET COUNT 756 K/MM3 (134-434); RBC 2.61 M/mm3 (4.00-5.60); RDW 17.3 % (11.9-15.9); WHITE BLOOD COUNT 16.2 K/mm3 (4.0-10.0)
[2019-12-07 07:58] LABS: CHLORIDE 113 mmol/L (98-107); POTASSIUM 4.1 mmol/L (3.5-5.1); SODIUM 141 mmol/L (136-145)
[2019-12-07 08:09] LABS: ALBUMIN 0.8 g/dl (3.4-5.0); ALK PHOS 73 U/L (45-117); ANION GAP 6 MMOL/L (8-16); BILIRUBIN,TOTAL 0.3 mg/dL (0.2-1); BLOOD UREA NITROGEN 14.4 mg/dL (7-18); CALCIUM 8.4 mg/dL (8.5-10.1); CO2 23 mmol/L (21-32); CREATININE 0.3 mg/dL (0.55-1.3); GLUCOSE,RANDOM 87 mg/dL (74-106); PHOSPHOROUS 2.8 mg/dL (2.5-4.9); SGOT/AST 12 U/L (15-37); SGPT/ALT < 6 U/L (13-61); TOT PROT 5.6 g/dl (6.4-8.2)
--- NOTE | 2019-12-07 08:29 | PN ---
Progress Note, Physician Chief Complaint: EVENTS AND NOTE REVIEWED PERSISTENT FEVERS/VENT SUPPORT/ANEMIA WORSE - Current Medication List Current Medications: Active Medications Chlorhexidine Gluconate (Hibiclens For Decolonization -) 1 applic TP HS [facility] Last Admin: 12/06/19 23:07 Dose: 1 applic Documented by: Sodium Chloride (Normal Saline -) 1,000 mls @ 75 mls/hr IV ASDIR [facility] Last Admin: 12/07/19 05:54 Dose: 75 mls/hr Documented by: Metronidazole (Flagyl 250mg Premixed Ivpb -) 250 mg in 50 mls @ 50 mls/hr IVPB Q8H-IV [facility] Last Admin: 12/07/19 02:30 Dose: 50 mls/hr Documented by: Vancomycin HCl 750 mg/ (Dextrose) 250 mls @ 250 mls/hr IVPB Q12H [facility]; Protocol Last Admin: 12/06/19 23:07 Dose: 250 mls/hr Documented by: Piperacillin Sod/Tazobactam (Sod 3.375 gm/ Dextrose) 50 mls @ 100 mls/hr IVPB Q8H-IV [facility]; Protocol Last Admin: 12/07/19 02:30 Dose: 100 mls/hr Documented by: Mupirocin (Bactroban 2% Ointment -) 1 applic TP BID [facility] Last Admin: 12/06/19 23:06 Dose: 1 appful Documented by: Pantoprazole Sodium (Protonix Iv) 40 mg IVPUSH DAILY [facility] Last Admin: 12/06/19 12:46 Dose: 40 mg Documented by: Vancomycin HCl (Vancomycin Oral Solution) 500 mg PO Q6HPO [facility] Last Admin: 12/07/19 05:54 Dose: 500 mg Documented by: - Objective Vital Signs: Vital Signs Temperature 97.5 F L 12/07/19 05:00 Pulse Rate 88 12/07/19 05:00 Respiratory Rate 12 12/07/19 05:00 Blood Pressure 109/57 L 12/07/19 05:00 O2 Sat by Pulse Oximetry (%) 100 12/07/19 05:00 Constitutional: Yes: Mild Distress, Moderate Distress Cardiovascular: Yes: Tachycardia, Pulse Irregular Respiratory: Yes: Diminished, Mechanically Ventilated Gastrointestinal: Yes: Distention Genitourinary: Yes: Maravilla Present Musculoskeletal: Yes: Muscle Weakness Integumentary: Yes: Pressure Ulcer Wound/Incision: Yes: Dressing Dry and Intact, Excoriated, Unapproximated Neurological: Yes: Weakness Labs: CBC, BMP 12/07/19 07:00 12/07/19 07:00 INR, PTT INR 2.38 (0.83-1.09) H 12/05/19 10:35 Problem List - Problems (1) Lactic acidosis Code(s): E87.2 - ACIDOSIS (2) Severe sepsis Code(s): A41.9 - SEPSIS, UNSPECIFIED ORGANISM; R65.20 - SEVERE SEPSIS WITHOUT SEPTIC SHOCK (3) Anemia Code(s): D64.9 - ANEMIA, UNSPECIFIED Qualifiers: (4) Back wound Code(s): S21.209A - UNSP OPN WND UNSP BK WL OF THORAX W/O PENET THOR CAV, INIT (5) COPD (chronic obstructive pulmonary disease) Code(s): J44.9 - CHRONIC OBSTRUCTIVE PULMONARY DISEASE, UNSPECIFIED Qualifiers: (6) Cerebral palsy Code(s): G80.9 - CEREBRAL PALSY, UNSPECIFIED Qualifiers: (7) Chronic respiratory failure Code(s): J96.10 - CHRONIC RESPIRATORY FAILURE, UNSP W HYPOXIA OR HYPERCAPNIA Qualifiers: (8) Pleural effusion Code(s): J90 - PLEURAL EFFUSION, NOT ELSEWHERE CLASSIFIED (9) Pneumonia Code(s): J18.9 - PNEUMONIA, UNSPECIFIED ORGANISM (10) Pressure ulcer of back Code(s): L89.109 - PRESSURE ULCER OF UNSP PART OF BACK, UNSPECIFIED STAGE Qualifiers: Pressure injury stage: stage 3 Qualified Code(s): L89.103 - Pressure ulcer of unspecified part of back, stage 3 (11) Seizure disorder Code(s): G40.909 - EPILEPSY, UNSP, NOT INTRACTABLE, WITHOUT STATUS EPILEPTICUS (12) Severe malnutrition Code(s): E43 - UNSPECIFIED SEVERE PROTEIN-CALORIE MALNUTRITION Assessment/Plan TRANSFUSE PRBC NOW FOR LOW H/H POOR CANDIDATE AT THIS TIME FOR VENT WEANING ID CONSULT FOR ABX PNA/WOUND ULCERS SURGICAL EVAL FOR WOUND DEBRIDEMENT OPTIMIZE NUTRITION FOR WOUND HEALING FULL CODE STATUS GOALS OF CARE NEED TO BE REVIEWED WITH HCP POOR OVERALL QUALITY OF LIFE
[2019-12-07] MEDS: VANCOMYCIN 750 MG in DEXTROSE 5%-WATER - 250 ML IVPB SCH ×2 (09:41→21:12)
[2019-12-07] MEDS: MUPIROCIN 2% TOPICAL OINTMENT 22 GM TUBE TP SCH (09:43)
[2019-12-07] MEDS: PANTOPRAZOLE SODIUM 40 MG VIAL IVPUSH SCH (09:58)
--- NOTE | 2019-12-07 11:04 | CONS ---
INFECTIOUS DISEASE CONSULTATION DATE OF CONSULTATION: DATE OF DICTATION: 12/06/2019 HISTORY: This is a 69-year-old man with chronic respiratory failure. He has a tracheostomy and he is on a ventilator. He has a history of functional quadriplegia, cerebral palsy, Parkinson's disease. He has a chronic G-tube and a J-tube. He is contracted and bedbound. He has had multiple admissions to the hospital. Most recently he was at [facility] from September 11 to September 16 for a G-tube malfunction. He was here again September 27 to October 08. Most recently he was hospitalized for 6 weeks from October 13 until December 01 at [facility]. The nature of that admission is unknown. He just got to the alf on the which was 3 days ago. Looking at his MAR, he was discharged on oral vancomycin, acidophilus. He was transferred from the alf to the hospital on the with lethargy, tachycardia and hypotension. In the ER he was found to have fever of 102.3. He had a lactic acid of 6, a white count 30,000, creatinine of 1.1. He was treated with IV fluids. He got IV antibiotics. He got vancomycin and Zosyn and he went for a CAT scan of his chest, abdomen and pelvis. CT of the chest showed near-complete opacification of the right lung, question of infiltrate versus atelectasis, and a cavitary infiltrate in the left upper lobe. CAT scan of the abdomen and pelvis showed diffuse enteritis and ascites with no apparent obstruction and no free air. He was transferred to the ICU for further management. He is currently on the ventilator. He is awake. He is not able to contribute to his care, and he is not on any pressors at this time. PAST MEDICAL HISTORY: Notable for Parkinson's disease, cerebral palsy, recurrent volvulus, recurrent pneumonia. He has chronic respiratory failure and has tracheostomy and is ventilator dependent and he has history of schizophrenia and COPD. SURGICAL HISTORY: Notable for tracheostomy, G-tube and J-tube. ALLERGIES: He has no known drug allergies. CURRENT MEDICATIONS: At the alf include nystatin cream, Silvadene, Santyl, vitamin C, calamine, Dakin solution, warfarin, zinc sulfate, oral vancomycin, acidophilus capsules. He is on vitamins, ferrous sulfate, famotidine, Klonopin, omeprazole, zinc and nebulizer treatment. SOCIAL HISTORY: He resides at the alf. He is contracted and bedbound. There is no former history of substance use. REVIEW OF SYSTEMS: As per the alf transfer which reports lethargy, tachypnea and hypotension. The nurse reports in the ICU he has had some pasty yellow stools. PHYSICAL EXAMINATION: General: He opens his eyes. He looks alert. He is ventilated from the tracheostomy to the ventilator. FiO2 is 50% Vital Signs: Temp is 96.9 at present. Blood pressure is 99/58, pulse of 92. HEENT: He is normocephalic. His eyes are anicteric. Lungs: Diminished breath sounds at both bases. Heart: Regular rate and rhythm. Abdomen: Soft. He has got a soft reducible hernia. He has diffuse erythema surrounding his J-tube and G-tube. There is minimal purulence from the sites of these tubes. Extremities: Contracted. Skin: He has got apparently a total of 10 decubiti. He has a large decubitus on his back that is clean with a small one next to it that is purulent. He has bilateral hip decubiti that are large, foul-smelling with purulent drainage bilaterally on his hips. He has decubiti of his heels as well that are foul-smelling and draining. LABORATORIES: Notable for a white count of 30,000, hemoglobin 9.8, platelets of 1156. His BUN is 25 and creatinine 1.3. Urinalysis has 1+ leukocytes with 41 white cells, greater than 36 epithelial cells, and his COVID is pending. His blood cultures are pending and his urine culture is growing group B enterococcus of 10,000 to 20,000. Prior stool Clostridium difficile from September was positive for toxin and antigen. In summary, this is a critically ill 69-year-old man with sepsis, bilateral pneumonia with a cavity in his right upper lobe, infected decubiti, history of Clostridium difficile on oral vancomycin. Currently no pressors. He is just 72 hours out of his discharge from [facility]. No records have been sent. We will call the alf and see if we can get any insight about his admission there. Would isolate him at present. Would treat him with Zosyn, oral vancomycin. Surgery to debride his infected wounds. Pancultures including sputum. Would resend a Clostridium difficile and further recommendations to follow. Over 40 minutes were spent reviewing the chart and examining this critically ill ICU patient. JOSE LIU M.D. [id number] MTDD
--- NOTE | 2019-12-07 11:25 | PN ---
Progress Note (short form) - Note Progress Note: alert contracted Vital Signs Period Temp Pulse Resp BP Sys/Gomez Pulse Ox Last 24 Hr 97.5 F-97.9 F 86-108 12-26 90-109/45-61 93-100 cor-rrr lungs decreased bs at bases abd soft,+erythema, +GT +JT soft hernia multiple purulent ulcers contractures trach to vent CBC, BMP 12/07/19 07:00 12/07/19 07:00 Microbiology 12/05/19 10:35 Blood - Peripheral Venous Blood Culture - Preliminary NO GROWTH OBTAINED AFTER 48 HOURS, INCUBATION TO CONTINUE FOR 3 DAYS. 12/05/19 10:35 Blood - Peripheral Venous Blood Culture - Preliminary NO GROWTH OBTAINED AFTER 48 HOURS, INCUBATION TO CONTINUE FOR 3 DAYS. 12/05/19 12:10 Urine - Urine Maravilla Urine Culture - Preliminary Group D Strep Or Entero Coccus a/p sepsis cavitary pneumonia infected pressure ulcers abdominal wall cellulitis chronic resp failure history of cdiff no diarrhea now continue vanco/zosyn/flagyl po vanco check vanco trough surgery to debride wounds if possible
--- NOTE | 2019-12-07 12:22 | CONSULT ---
- Consultation REQUESTING PROVIDER: CONSULT REQUEST: We have been asked to surgically evaluate this patient for Multiple back and hip wounds PCP:Delbert Melendez HISTORY OF PRESENT ILLNESS: 69YOM COPD, Parkinsons, Schizophrenia, cerebral palsy, trach dependent, J tube dependent, anemia, chronic volvulus BIBEMS from [facility] for evaluation of sacral wounds, hypotension, fever. Pt is nonverbal, trached and vented so unable to get history on how long wounds present. Pt nonambulatory and contracted. PMHx: see above Home Medications Medication Instructions Recorded Acetaminophen [Tylenol] 650 mg PO TID 10/11/19 Collagenase Clostridium Hist. 1 applic TP DAILY 10/11/19 [Santyl -] Famotidine [Pepcid] 20 mg PO DAILY 10/11/19 Ferrous Sulfate [Feosol] 300 mg GT DAILY 10/11/19 L. Acidophilus/Pectin, [place] 1 each PO DAILY 10/11/19 [Acidophilus Capsule] Lamotrigine [Lamotrigine ER] 50 mg PO BID 10/11/19 Multivit-Minerals 15 ml PO DAILY 10/11/19 [Certavite-Antioxidant Liquid] Nystatin Cream [Mycostatin Cream -] 1 applic BID 10/11/19 Omeprazole 20 mg PO DAILY 10/11/19 clonazePAM [Klonopin -] 0.5 mg PO DAILY 10/11/19 Ascorbic Acid [C-500] 500 mg PO DAILY 12/05/19 Cinacalcet HCl [Sensipar] 60 mg PO 12/05/19 Nystatin Cream [Mycostatin Cream -] 12/05/19 Silver Sulfadiazine BID 12/05/19 Vancomycin HCl [Firvanq] 125 mg PO BID 12/05/19 Warfarin Sodium 3 mg PO DAILY 12/05/19 Zinc Sulfate [Orazinc] 220 mg PO DAILY 12/05/19 Allergies Allergy/AdvReac Type Severity Reaction Status Date / Time No Known Allergies Allergy Verified 10/10/19 20:41 PHYSICAL EXAM: GENERAL: Awake, not oriented to voice or touch HEAD: Normal with no signs of trauma. NECK: trach in place LUNGS: vented LOWER EXTREMITIES: warm, well-perfused. No calf tenderness. No peripheral edema. Contracted Left foot: 1cm eschar lateral foot, 3.5cm round stage 3 ulcer heel Left hip: 11cm x 7cm unstageable ulcer with eschar and foul smelling drainage. Right hip: 8cm 12cm unstageable ulcer with eschar and foul smelling drainage Sacrum: 2cm x 2cm unstageable ulcer with fibrinous tissue Upper Back: 1.5cm x 1cm unstageable ulcer, 5.5cm x 4cm unstageable ulcer with eschar, 3cm x 2.5cm unstageable ulcer with eschar Vital Signs Temperature 97.0 F L 12/07/19 10:00 Pulse Rate 108 H 12/07/19 10:58 Respiratory Rate 17 12/07/19 10:00 Blood Pressure 95/56 L 12/07/19 10:58 O2 Sat by Pulse Oximetry (%) 100 12/07/19 10:00 Lab Results WBC 16.2 K/mm3 (4.0-10.0) H 12/07/19 07:00 RBC 2.61 M/mm3 (4.00-5.60) L 12/07/19 07:00 Hgb 7.2 GM/dL (11.7-16.9) L 12/07/19 07:00 Hct 23.1 % (35.4-49) L 12/07/19 07:00 MCV 88.6 fl (80-96) 12/07/19 07:00 MCHC 31.2 g/dl (32.0-35.9) L 12/07/19 07:00 RDW 17.3 % (11.9-15.9) H 12/07/19 07:00 Plt Count 756 K/MM3 (134-434) H 12/07/19 07:00 INR 2.38 (0.83-1.09) H 12/05/19 10:35 Sodium 141 mmol/L (136-145) 12/07/19 07:00 Potassium 4.1 mmol/L (3.5-5.1) 12/07/19 07:00 Chloride 113 mmol/L (98-107) H 12/07/19 07:00 Carbon Dioxide 23 mmol/L (21-32) 12/07/19 07:00 Anion Gap 6 MMOL/L (8-16) L 12/07/19 07:00 BUN 14.4 mg/dL (7-18) 12/07/19 07:00 Creatinine 0.3 mg/dL (0.55-1.3) L 12/07/19 07:00 Random Glucose 87 mg/dL (74-106) 12/07/19 07:00 Calcium 8.4 mg/dL (8.5-10.1) L 12/07/19 07:00 Blood Type O POSITIVE 12/05/19 10:40 Antibody Screen Negative 12/05/19 10:40 Problem List - Problems (1) Decubital ulcer Assessment/Plan: Plan -pt will need surgical debridement of b/l hip and upper back ulcers, will plan for OR on 12/10/19 Sacral Ulcer/DTI Plan -Reposition every two hours while in bed -Air mattress recommended -Use drawsheets and Trendelenburg when repositioning to reduce friction and shear -Manageincontinence via timely cleansing, use of appropriate incontinence disposables and use of barrier ointment to intact skin -Ensure adequate hydration/nutrition, supplementation per primary team -Ensure off-loading to all bony areas (heels, ankles, hips and tailbone) with Allevyn/Optifoam -Clean open wounds with normal saline and apply santyl Code(s): L89.90 - PRESSURE ULCER OF UNSPECIFIED SITE, UNSPECIFIED STAGE Visit type - Case Type Case Type: ED Admission - Emergency Emergency Visit: Yes ED Registration Date: 12/05/19 Care time: The patient presented to the Emergency Department on the above date and was hospitalized for further evaluation of their emergent condition. - New patient This patient is new to me today: Yes Date on this admission: 12/07/19 - Critical Care Critical Care patient: No
--- NOTE | 2019-12-07 13:19 | PN ---
Teaching Attending Note ATTENDING PHYSICIAN STATEMENT I saw and evaluated the patient. I reviewed the resident's note and discussed the case with the resident. I agree with the resident's findings and plan as documented. SUBJECTIVE: Pt seen and examined in the ICU. Vented, awake. No pressors. Fever curve down. OBJECTIVE: Vital Signs Period Temp Pulse Resp BP Sys/Gomez Pulse Ox Last 24 Hr 97.0 F-97.9 F 86-108 12-26 90-109/49-61 96-100 Intake & Output 12/04/19 12/05/19 12/06/19 12/07/19 23:59 23:59 23:59 23:59 Intake Total 2525 1640 1400 Output Total 20 1150 700 Balance 2505 490 700 Weight 47.174 kg 47.174 kg Gen: vented, awake Heart: RRR Lung: bilateral rhonchi Abd: soft, nontender Ext: no edema, contracted CBC, BMP 12/07/19 07:00 12/07/19 07:00 Active Medications Chlorhexidine Gluconate (Hibiclens For Decolonization -) 1 applic TP HS [facility] Last Admin: 12/06/19 23:07 Dose: 1 applic Documented by: Collagenase (Santyl -) 1 applic TP DAILY [facility]; Protocol Sodium Chloride (Normal Saline -) 1,000 mls @ 75 mls/hr IV ASDIR [facility] Last Admin: 12/07/19 05:54 Dose: 75 mls/hr Documented by: Metronidazole (Flagyl 250mg Premixed Ivpb -) 250 mg in 50 mls @ 50 mls/hr IVPB Q8H-IV [facility] Last Admin: 12/07/19 09:40 Dose: 50 mls/hr Documented by: Vancomycin HCl 750 mg/ (Dextrose) 250 mls @ 250 mls/hr IVPB Q12H [facility]; Protocol Last Admin: 12/07/19 09:41 Dose: 250 mls/hr Documented by: Piperacillin Sod/Tazobactam (Sod 3.375 gm/ Dextrose) 50 mls @ 100 mls/hr IVPB Q8H-IV [facility]; Protocol Last Admin: 12/07/19 09:59 Dose: 100 mls/hr Documented by: Mupirocin (Bactroban 2% Ointment -) 1 applic TP BID [facility] Last Admin: 12/07/19 09:43 Dose: 1 appful Documented by: Pantoprazole Sodium (Protonix Iv) 40 mg IVPUSH DAILY [facility] Last Admin: 12/07/19 09:58 Dose: 40 mg Documented by: Vancomycin HCl (Vancomycin Oral Solution) 125 mg PO Q6HPO [facility] ASSESSMENT AND PLAN: Pneumonia Infected Decubitus Ulcers h/o C diff colitis Severe Sepsis Lactic Acidosis Chronic Respiratory Failure Cerebral Palsy Parkinsons Anemia - continue antibiotics - f/u cultures - send sputum for culture, fungal culture - IVF - monitor urine output, creatinine - wound care - continue volume assist control - poor candidate for weaning - enteral feeds - DVT/GI prophylaxis - can monitor on vent floor
[2019-12-07] MEDS ORDERED: AMINO ACIDS/PROTEIN HYDROLYS 30 ML LIQUID.PKT PO SCH (13:45)
[2019-12-07] MEDS: HEPARIN NA (PORCINE) 5,000 UNITS/ML 1ML VIAL SQ SCH ×2 (15:00→21:12)
--- NOTE | 2019-12-07 17:16 | PN ---
Progress Note, Physician History of Present Illness: Pt seen and examined at bedside. No great change in status. - Current Medication List Current Medications: Active Medications Amino Acids (Prosource No Carb Liquid Pkt) 30 ml PO DAILY@0800 [facility] Last Admin: 12/07/19 14:14 Dose: 30 ml Documented by: Chlorhexidine Gluconate (Hibiclens For Decolonization -) 1 applic TP HS [facility] Last Admin: 12/06/19 23:07 Dose: 1 applic Documented by: Collagenase (Santyl -) 1 applic TP DAILY [facility]; Protocol Heparin Sodium (Porcine) (Heparin -) 5,000 unit SQ TID [facility] Last Admin: 12/07/19 15:00 Dose: 5,000 unit Documented by: Sodium Chloride (Normal Saline -) 1,000 mls @ 75 mls/hr IV ASDIR [facility] Last Admin: 12/07/19 16:50 Dose: 75 mls/hr Documented by: Metronidazole (Flagyl 250mg Premixed Ivpb -) 250 mg in 50 mls @ 50 mls/hr IVPB Q8H-IV [facility] Last Admin: 12/07/19 09:40 Dose: 50 mls/hr Documented by: Vancomycin HCl 750 mg/ (Dextrose) 250 mls @ 250 mls/hr IVPB Q12H [facility]; Protocol Last Admin: 12/07/19 09:41 Dose: 250 mls/hr Documented by: Piperacillin Sod/Tazobactam (Sod 3.375 gm/ Dextrose) 50 mls @ 100 mls/hr IVPB Q8H-IV [facility]; Protocol Last Admin: 12/07/19 09:59 Dose: 100 mls/hr Documented by: Mupirocin (Bactroban 2% Ointment -) 1 applic TP BID [facility] Last Admin: 12/07/19 09:43 Dose: 1 appful Documented by: Pantoprazole Sodium (Protonix Iv) 40 mg IVPUSH DAILY [facility] Last Admin: 12/07/19 09:58 Dose: 40 mg Documented by: Vancomycin HCl (Vancomycin Oral Solution) 125 mg PO Q6HPO [facility] Last Admin: 12/07/19 13:30 Dose: 125 mg Documented by: - Objective Vital Signs: Vital Signs Temperature 97.0 F L 12/07/19 10:00 Pulse Rate 108 H 12/07/19 10:58 Respiratory Rate 19 12/07/19 16:15 Blood Pressure 95/56 L 12/07/19 10:58 O2 Sat by Pulse Oximetry (%) 99 12/07/19 16:15 Constitutional: Yes: Calm Eyes: Yes: Conjunctiva Clear HENT: Yes: Atraumatic Neck: Yes: Supple Cardiovascular: Yes: S1, S2 Genitourinary: Yes: Maravilla Present Edema: Yes Edema: LLE: Trace, RLE: Trace Neurological: Yes: Pre-Existing Deficit Labs: CBC, BMP 12/07/19 07:00 12/07/19 07:00 INR, PTT INR 2.38 (0.83-1.09) H 12/05/19 10:35 Assessment/Plan Current Medications Generic Name Dose Route Start Last Admin Trade Name Freq PRN Reason Stop Dose Admin Amino Acids 30 ml 12/07/19 13:45 12/07/19 14:14 Prosource No Carb Liquid Pkt PO 30 ml DAILY@0800 [facility] Administration Chlorhexidine Gluconate 1 applic 12/06/19 22:00 12/06/19 23:07 Hibiclens For Decolonization - TP 1 applic HS [facility] Administration Collagenase 1 applic 12/08/19 10:00 Santyl - TP DAILY [facility] Protocol Heparin Sodium (Porcine) 5,000 unit 12/07/19 14:15 12/07/19 15:00 Heparin - SQ 5,000 unit TID [facility] Administration Sodium Chloride 1,000 mls @ 75 mls/hr 12/05/19 15:00 12/07/19 16:50 Normal Saline - IV 75 mls/hr ASDIR [facility] Administration Metronidazole 250 mg in 50 mls @ 50 mls/hr 12/05/19 20:00 12/07/19 09:40 Flagyl 250mg Premixed Ivpb - IVPB 50 mls/hr Q8H-IV [facility] Administration Vancomycin HCl 750 mg/ 250 mls @ 250 mls/hr 12/06/19 10:00 12/07/19 09:41 Dextrose IVPB 250 mls/hr Q12H [facility] Administration Protocol Piperacillin Sod/Tazobactam 50 mls @ 100 mls/hr 12/06/19 10:00 12/07/19 09:59 Sod 3.375 gm/ Dextrose IVPB 100 mls/hr Q8H-IV [facility] Administration Protocol Mupirocin 1 applic 12/06/19 22:00 12/07/19 09:43 Bactroban 2% Ointment - TP 1 appful BID [facility] Administration Pantoprazole Sodium 40 mg 12/05/19 15:00 12/07/19 09:58 Protonix Iv IVPUSH 40 mg DAILY [facility] Administration Vancomycin HCl 125 mg 12/07/19 12:00 12/07/19 13:30 Vancomycin Oral Solution PO 125 mg Q6HPO [facility] Administration Impression NOAH COPD Parkinsons cerebral palsy trach dependent anemia chronic volvulus Plan - renal function stable - vent support - monitor lytes - abx per medical team
--- NOTE | 2019-12-07 18:54 | PN ---
Physical Exam: SUBJECTIVE: Patient seen and examined. Pt is awake and nonverbal at baseline. OBJECTIVE: Vital Signs Period Temp Pulse Resp BP Sys/Gomez Pulse Ox Last 24 Hr 97.0 F-98.0 F 86-108 12-26 92-116/49-61 96-100 GENERAL: The patient is awake, alert, and in moderate distress. HEAD: Normal with no signs of trauma. EYES: extraocular movements intact, sclera anicteric, conjunctiva clear. No ptosis. ENT: Ears normal, nares patent, NECK: Pt is trached. LUNGS: breath sounds decreased at bilateral bases HEART: Normal S1, S2 without murmur, rub or gallop. ABDOMEN: Soft, normal bowel sounds. Pt nongrimmacing on all four quadrants NEUROLOGICAL: Cranial nerves II through XII grossly intact. SKIN: Warm, dry, multiple purulent ulcers: bilateral hips, feet, hands, sacral decubitus ulcer Laboratory Results - last 24 hr 12/05/19 12/05/19 12/07/19 10:40 10:40 07:00 WBC 16.2 H RBC 2.61 L Hgb 7.2 L Hct 23.1 L MCV 88.6 MCH 27.6 MCHC 31.2 L RDW 17.3 H Plt Count 756 H MPV 6.9 L Absolute Neuts (auto) 14.4 H Neutrophils % 88.8 H Lymphocytes % 5.6 L D Monocytes % 4.4 Eosinophils % 0.8 Basophils % 0.4 Nucleated RBC % 0 VBG pH 7.048 L* POC VBG pCO2 76.8 H* POC VBG pO2 22.0 L VBG HCO3 20.7 L VBG O2 Sat (Yen) 20.6 L VBG Base Excess -9.6 L Sodium Potassium Chloride Carbon Dioxide Anion Gap BUN Creatinine Est GFR (CKD-EPI)AfAm Est GFR (CKD-EPI)NonAf Random Glucose Calcium Phosphorus Magnesium Total Bilirubin AST ALT Alkaline Phosphatase Total Protein Albumin Blood Type O POSITIVE Antibody Screen Positive H Prewarmed Antibody Srcn Negative Antibody Identification Cold auto Antigen Identification No Result Required. Crossmatch See Detail 12/07/19 12/07/19 07:00 13:40 WBC RBC Hgb Hct MCV MCH MCHC RDW Plt Count MPV Absolute Neuts (auto) Neutrophils % Lymphocytes % Monocytes % Eosinophils % Basophils % Nucleated RBC % VBG pH POC VBG pCO2 POC VBG pO2 VBG HCO3 VBG O2 Sat (Yen) VBG Base Excess Sodium 141 Potassium 4.1 Chloride 113 H Carbon Dioxide 23 Anion Gap 6 L BUN 14.4 Creatinine 0.3 L Est GFR (CKD-EPI)AfAm 158.09 Est GFR (CKD-EPI)NonAf 136.40 Random Glucose 87 Calcium 8.4 L Phosphorus 2.8 Magnesium 2.0 Total Bilirubin 0.3 AST 12 L ALT < 6 L Alkaline Phosphatase 73 Total Protein 5.6 L Albumin 0.8 L Blood Type O POSITIVE Antibody Screen Positive Prewarmed Antibody Srcn Antibody Identification Cold auto Antigen Identification No Result Required. Crossmatch Active Medications Generic Name Dose Route Start Last Admin Trade Name Freq PRN Reason Stop Dose Admin Amino Acids 30 ml 12/07/19 13:45 12/07/19 14:14 Prosource No Carb Liquid Pkt PO 30 ml DAILY@0800 [facility] Administration Chlorhexidine Gluconate 1 applic 12/06/19 22:00 12/06/19 23:07 Hibiclens For Decolonization - TP 1 applic HS [facility] Administration Collagenase 1 applic 12/08/19 10:00 Santyl - TP DAILY [facility] Protocol Heparin Sodium (Porcine) 5,000 unit 12/07/19 14:15 12/07/19 15:00 Heparin - SQ 5,000 unit TID [facility] Administration Sodium Chloride 1,000 mls @ 75 mls/hr 12/05/19 15:00 12/07/19 16:50 Normal Saline - IV 75 mls/hr ASDIR [facility] Administration Metronidazole 250 mg in 50 mls @ 50 mls/hr 12/05/19 20:00 12/07/19 17:42 Flagyl 250mg Premixed Ivpb - IVPB 50 mls/hr Q8H-IV [facility] Administration Vancomycin HCl 750 mg/ 250 mls @ 250 mls/hr 12/06/19 10:00 12/07/19 09:41 Dextrose IVPB 250 mls/hr Q12H [facility] Administration Protocol Piperacillin Sod/Tazobactam 50 mls @ 100 mls/hr 12/06/19 10:00 12/07/19 17:15 Sod 3.375 gm/ Dextrose IVPB 100 mls/hr Q8H-IV [facility] Administration Protocol Mupirocin 1 applic 12/06/19 22:00 12/07/19 09:43 Bactroban 2% Ointment - TP 1 appful BID [facility] Administration Pantoprazole Sodium 40 mg 12/05/19 15:00 12/07/19 09:58 Protonix Iv IVPUSH 40 mg DAILY [facility] Administration Vancomycin HCl 125 mg 12/07/19 12:00 12/07/19 17:16 Vancomycin Oral Solution PO 125 mg Q6HPO [facility] Administration ASSESSMENT/PLAN: 69 yo male seen in ICU for pna and infected ulcer and cdiff and abd wall cellulitis. Now pt off pressors transferred out. Resp: - pt has chronic resp failure on vent (not condition for weaning) - pt vented on RR 12, TV400, FiO2 40%, PEEP 5 Cardio - baseline Renal - Prior renal azotemia due to hypovolemia/sepsis - renal function stable today Heme - 1 PRBC given today -stool occult ordered ID - CT chest shows bilateral PNA near complete opacification of R lung infiltrate in Left upper lobe - CTAP diffuse ascites but no apparent obstruction and no free air. - Abd wall cellulitis - Pt given vancomycin, zosyn, flagyl, and PO vanc for pna, abd wall cellulitis, and cdiff Decubitus ulcer - Pt need surgical debridement of bilateral hips and upper back ulcers for OR 12/10/2019 - reposition every 2 hours - air mattress recommended - clean open wounds with normal saline and apply santyl GI - feeding 30 ml prosource daily Prophylaxis -heparin 5000 TID - Protonix 40mg Visit type - Emergency Visit Emergency Visit: Yes ED Registration Date: 12/05/19 Care time: The patient presented to the Emergency Department on the above date and was hospitalized for further evaluation of their emergent condition. - New Patient This patient is new to me today: Yes Date on this admission: 12/08/19 - Critical Care Critical Care patient: Yes Total Critical Care Time (in minutes): 36 Critical Care Statement: The care of this patient involved high complexity decision making to prevent further life threatening deterioration of the patient's condition and/or to evaluate & treat vital organ system(s) failure or risk of failure. - Medication Review Med list reviewed for High Risk Meds patients 65 and older: Yes ATTENDING PHYSICIAN STATEMENT I saw and evaluated the patient. I reviewed the resident's note and discussed the case with the resident. I agree with the resident's findings and plan as documented. SUBJECTIVE: OBJECTIVE: ASSESSMENT AND PLAN:
[2019-12-07] MEDS: CHLORHEXIDINE GLUCONATE 4% CLEANSER FOR DECOLONIZATION TP SCH (21:12)
--- NOTE | 2019-12-07 21:53 | EKG ---
Test Reason : Blood Pressure : / mmHG Vent. Rate : 131 BPM Atrial Rate : 131 BPM P-R Int : 142 ms QRS Dur : 080 ms QT Int : 292 ms P-R-T Axes : 042 044 050 degrees QTc Int : 431 ms SINUS TACHYCARDIA LOW VOLTAGE QRS SEPTAL INFARCT (CITED ON OR BEFORE 10-OCT-2019) ABNORMAL ECG WHEN COMPARED WITH ECG OF 10-OCT-2019 22:28, PREMATURE VENTRICULAR COMPLEXES ARE NO LONGER PRESENT VENT. RATE HAS INCREASED Confirmed by ROBIN VALLADARES MD ([id number]) on 12/07/2019 9:53:21 PM Referred By: Confirmed By:ROBIN VALLADARES MD
[2019-12-07] MEDS ORDERED: SODIUM CHLORIDE 1,000 ML IV SCH (23:29)
[2019-12-08] MEDS: VANCOMYCIN 250 MG/5 ML ORAL SOLUTION PO SCH ×5 (00:11→23:21)
[2019-12-08] MEDS ORDERED: DEXTROSE 5%-WATER - 50 ML IVPB ONE ×3 (01:19→17:55)
[2019-12-08] MEDS ORDERED: PIPERACILLIN/TAZOBACTAM 3.375 GM VIAL IVPB ONE ×3 (01:19→17:55)
[2019-12-08] MEDS ORDERED: PT OWN MED DRAWER 7, Y5N ONE ×3 (01:34→17:55)
[2019-12-08] MEDS: PIPERACILLIN/TAZOB 3.375 GM 3.375 GM in DEXTROSE 5%-WATER - 50 ML IVPB SCH ×3 (02:29→18:28)
[2019-12-08] MEDS: HEPARIN NA (PORCINE) 5,000 UNITS/ML 1ML VIAL SQ SCH ×3 (06:40→21:43)
[2019-12-08] MEDS: AMINO ACIDS/PROTEIN HYDROLYS 30 ML LIQUID.PKT PO SCH (09:30)
[2019-12-08] MEDS ORDERED: COLLAGENASE CLOSTRIDIUM HIST. 30 GRAMS TUBE TP SCH (10:00)
--- NOTE | 2019-12-08 10:22 | PN ---
Progress Note, Physician History of Present Illness: pulmonary sleeping on vent support ac mode,-resp distress - Current Medication List Current Medications: Active Medications Amino Acids (Prosource No Carb Liquid Pkt) 30 ml PO DAILY@0800 [facility] Collagenase (Santyl -) 1 applic TP DAILY [facility]; Protocol Heparin Sodium (Porcine) (Heparin -) 5,000 unit SQ TID [facility] Last Admin: 12/08/19 06:40 Dose: 5,000 unit Documented by: Metronidazole (Flagyl 250mg Premixed Ivpb -) 250 mg in 50 mls @ 50 mls/hr IVPB Q8H-IV [facility] Last Admin: 12/08/19 01:55 Dose: 50 mls/hr Documented by: Piperacillin Sod/Tazobactam (Sod 3.375 gm/ Dextrose) 50 mls @ 100 mls/hr IVPB Q8H-IV [facility]; Protocol Last Admin: 12/08/19 02:29 Dose: 100 mls/hr Documented by: Vancomycin HCl 750 mg/ (Dextrose) 250 mls @ 250 mls/hr IVPB Q12H [facility]; Protocol Sodium Chloride (Normal Saline -) 1,000 mls @ 75 mls/hr IV ASDIR [facility] Last Admin: 12/08/19 00:47 Dose: 75 mls/hr Documented by: Pantoprazole Sodium (Protonix Iv) 40 mg IVPUSH DAILY [facility] Vancomycin HCl (Vancomycin Oral Solution) 125 mg PO Q6HPO [facility] Last Admin: 12/08/19 06:40 Dose: 125 mg Documented by: - Objective Vital Signs: Vital Signs Temperature 97.5 F L 12/08/19 06:00 Pulse Rate 87 12/08/19 07:45 Respiratory Rate 21 H 12/08/19 07:45 Blood Pressure 122/60 12/08/19 06:00 O2 Sat by Pulse Oximetry (%) 95 12/08/19 07:45 Constitutional: Yes: Cachectic, Other (sleeping) Eyes: Yes: WNL HENT: Yes: WNL Neck: Yes: Supple (trach) Cardiovascular: Yes: Regular Rate and Rhythm, S1, S2 Respiratory: Yes: Mechanically Ventilated, Rhonchi (few scattered rhonchi) Gastrointestinal: Yes: Normal Bowel Sounds, Soft Extremities: Yes: Other (contracted) Edema: No Labs: CBC, BMP 12/07/19 07:00 12/07/19 07:00 INR, PTT INR 2.38 (0.83-1.09) H 12/05/19 10:35 Problem List - Problems (1) Lactic acidosis Code(s): E87.2 - ACIDOSIS (2) Pneumonia Code(s): J18.9 - PNEUMONIA, UNSPECIFIED ORGANISM (3) Sepsis Code(s): A41.9 - SEPSIS, UNSPECIFIED ORGANISM (4) Anemia Code(s): D64.9 - ANEMIA, UNSPECIFIED Qualifiers: (5) COPD (chronic obstructive pulmonary disease) Code(s): J44.9 - CHRONIC OBSTRUCTIVE PULMONARY DISEASE, UNSPECIFIED Qualifiers: (6) Cerebral palsy Code(s): G80.9 - CEREBRAL PALSY, UNSPECIFIED Qualifiers: (7) Chronic respiratory failure Code(s): J96.10 - CHRONIC RESPIRATORY FAILURE, UNSP W HYPOXIA OR HYPERCAPNIA Qualifiers: (8) Decubital ulcer Code(s): L89.90 - PRESSURE ULCER OF UNSPECIFIED SITE, UNSPECIFIED STAGE (9) Parkinson disease Code(s): G20 - PARKINSON'S DISEASE (10) Severe malnutrition Code(s): E43 - UNSPECIFIED SEVERE PROTEIN-CALORIE MALNUTRITION Assessment/Plan ASSESSMENT AND PLAN: Pneumonia Infected Decubitus Ulcers h/o C diff colitis Severe Sepsis Lactic Acidosis Chronic Respiratory Failure Cerebral Palsy Parkinsons Anemia - antibiotics - IVF - monitor urine output, creatinine - wound care - continue volume assist control - poor candidate for weaning - enteral feeds - DVT/GI prophylaxi DR HERNANDEZ
[2019-12-08] MEDS: PANTOPRAZOLE SODIUM 40 MG VIAL IVPUSH SCH (10:54)
--- NOTE | 2019-12-08 11:07 | PN ---
Progress Note, Physician Chief Complaint: Pneumonia Chronic respiratory failure VRE Anemia Cachexia History of Present Illness: NAD [facility] vent - Current Medication List Current Medications: Active Medications Amino Acids (Prosource No Carb Liquid Pkt) 30 ml PO DAILY@0800 [facility] Collagenase (Santyl -) 1 applic TP DAILY [facility]; Protocol Heparin Sodium (Porcine) (Heparin -) 5,000 unit SQ TID [facility] Last Admin: 12/08/19 06:40 Dose: 5,000 unit Documented by: Metronidazole (Flagyl 250mg Premixed Ivpb -) 250 mg in 50 mls @ 50 mls/hr IVPB Q8H-IV [facility] Last Admin: 12/08/19 01:55 Dose: 50 mls/hr Documented by: Piperacillin Sod/Tazobactam (Sod 3.375 gm/ Dextrose) 50 mls @ 100 mls/hr IVPB Q8H-IV [facility]; Protocol Last Admin: 12/08/19 02:29 Dose: 100 mls/hr Documented by: Vancomycin HCl 750 mg/ (Dextrose) 250 mls @ 250 mls/hr IVPB Q12H [facility]; Protocol Sodium Chloride (Normal Saline -) 1,000 mls @ 75 mls/hr IV ASDIR [facility] Last Admin: 12/08/19 00:47 Dose: 75 mls/hr Documented by: Pantoprazole Sodium (Protonix Iv) 40 mg IVPUSH DAILY [facility] Vancomycin HCl (Vancomycin Oral Solution) 125 mg PO Q6HPO [facility] Last Admin: 12/08/19 06:40 Dose: 125 mg Documented by: - Objective Vital Signs: Vital Signs Temperature 97.5 F L 12/08/19 06:00 Pulse Rate 87 12/08/19 07:45 Respiratory Rate 21 H 12/08/19 07:45 Blood Pressure 122/60 12/08/19 06:00 O2 Sat by Pulse Oximetry (%) 95 12/08/19 07:45 Constitutional: Yes: No Distress, Calm, Cachectic Cardiovascular: Yes: Regular Rate and Rhythm Respiratory: Yes: Regular, Mechanically Ventilated, Rhonchi Gastrointestinal: Yes: Normal Bowel Sounds, Soft Genitourinary: Yes: [place] Present Musculoskeletal: Yes: Muscle Weakness Extremities: Yes: WNL Edema: No Peripheral Pulses WNL: Yes Neurological: Yes: Pre-Existing Deficit Labs: CBC, BMP 12/07/19 07:00 12/07/19 07:00 INR, PTT INR 2.38 (0.83-1.09) H 12/05/19 10:35 Problem List - Problems (1) Pneumonia Assessment/Plan: -Recurrent -2/2 to aspiration -IV abx -Pulmonary and ID consult -Mech vent Problems reviewed: Yes Code(s): J18.9 - PNEUMONIA, UNSPECIFIED ORGANISM (2) Sepsis Assessment/Plan: -resolved Problems reviewed: Yes Code(s): A41.9 - SEPSIS, UNSPECIFIED ORGANISM (3) Anemia Assessment/Plan: -Previously TAM -Continue feosol -Iron stores improved -Transfuse only if Hg<7.0 to avoid fluid overload Problems reviewed: Yes Code(s): D64.9 - ANEMIA, UNSPECIFIED Qualifiers: (4) Cerebral palsy Problems reviewed: Yes Code(s): G80.9 - CEREBRAL PALSY, UNSPECIFIED Qualifiers: (5) Chronic respiratory failure Assessment/Plan: -Mech vent -Pulmonary on board -Bronchodilators -Not a candidate for weaning at this time Problems reviewed: Yes Code(s): J96.10 - CHRONIC RESPIRATORY FAILURE, UNSP W HYPOXIA OR HYPERCAPNIA Qualifiers: (6) Functional quadriplegia Problems reviewed: Yes Code(s): R53.2 - FUNCTIONAL QUADRIPLEGIA (7) Decubital ulcer Assessment/Plan: -Seen by Vascular surgery -Plan for debridement in OR on 12/10/19 Problems reviewed: Yes Code(s): L89.90 - PRESSURE ULCER OF UNSPECIFIED SITE, UNSPECIFIED STAGE (8) Severe malnutrition Problems reviewed: Yes Code(s): E43 - UNSPECIFIED SEVERE PROTEIN-CALORIE MALNUTRITION Assessment/Plan See problem list
[2019-12-08 12:27] LABS: BLOOD UREA NITROGEN 9.4 mg/dL (7-18); CALCIUM 8.4 mg/dL (8.5-10.1); CREATININE 0.3 mg/dL (0.55-1.3); POTASSIUM 3.5 mmol/L (3.5-5.1)
[2019-12-08] MEDS: VANCOMYCIN 750 MG in DEXTROSE 5%-WATER - 250 ML IVPB SCH ×2 (13:14→21:43)
[2019-12-08 13:43] LABS: HEMOGLOBIN 9.7 GM/dL (11.7-16.9); MCH 28.2 pg (25.7-33.7); MCHC 31.3 g/dl (32.0-35.9); MEAN CELL VOLUME 90.2 fl (80-96); MEAN PLT VOLUME 7.5 fl (7.5-11.1); PLATELET COUNT 737 K/MM3 (134-434); RBC 3.43 M/mm3 (4.00-5.60); RDW 16.4 % (11.9-15.9); WHITE BLOOD COUNT 17.8 K/mm3 (4.0-10.0)
[2019-12-08] MEDS ORDERED: ALBUTEROL SO4 2.5/IPRATROPIUM 0.5 INH SOL 3 ML VIAL.NEB. NEB ONE ×2 (16:06→16:10)
--- NOTE | 2019-12-08 16:08 | PN ---
Progress Note, Physician Chief Complaint: Fever History of Present Illness: Seen and examined at the bedside on vent via trach no fevers making urine via indwelling catheter - Current Medication List Current Medications: Active Medications Albuterol/Ipratropium (Duoneb -) 1 amp NEB RTID [facility] Amino Acids (Prosource No Carb Liquid Pkt) 30 ml PO DAILY@0800 [facility] Last Admin: 12/08/19 09:30 Dose: 30 ml Documented by: Ascorbic Acid (Vitamin C -) 500 mg PO BID [facility] Collagenase (Santyl -) 1 applic TP DAILY [facility]; Protocol Ferrous Sulfate (Feosol) 300 mg GT DAILY [facility] Heparin Sodium (Porcine) (Heparin -) 5,000 unit SQ BID [facility] Metronidazole (Flagyl 250mg Premixed Ivpb -) 250 mg in 50 mls @ 50 mls/hr IVPB Q8H-IV [facility] Last Admin: 12/08/19 12:03 Dose: 50 mls/hr Documented by: Piperacillin Sod/Tazobactam (Sod 3.375 gm/ Dextrose) 50 mls @ 100 mls/hr IVPB Q8H-IV [facility]; Protocol Last Admin: 12/08/19 10:53 Dose: 100 mls/hr Documented by: Vancomycin HCl 750 mg/ (Dextrose) 250 mls @ 250 mls/hr IVPB Q12H [facility]; Protocol Last Admin: 12/08/19 13:14 Dose: 250 mls/hr Documented by: Multivitamins/Minerals (Certavite-Antioxidant Liquid) 15 ml PO DAILY [facility] Pantoprazole Sodium (Protonix Iv) 40 mg IVPUSH DAILY [facility] Last Admin: 12/08/19 10:54 Dose: 40 mg Documented by: Vancomycin HCl (Vancomycin Oral Solution) 125 mg PO Q6HPO [facility] Last Admin: 12/08/19 12:04 Dose: 125 mg Documented by: - Objective Vital Signs: Vital Signs Temperature 99.2 F 12/08/19 14:00 Pulse Rate 98 H 12/08/19 15:33 Respiratory Rate 19 12/08/19 15:33 Blood Pressure 94/50 L 12/08/19 14:00 O2 Sat by Pulse Oximetry (%) 98 12/08/19 15:33 Constitutional: Yes: No Distress HENT: Yes: Atraumatic Neck: Yes: Supple Cardiovascular: Yes: Regular Rate and Rhythm Respiratory: Yes: Mechanically Ventilated Extremities: Yes: Erythema Edema: Yes Edema: RUE: Trace Neurological: No: Alert Labs: CBC, BMP 12/08/19 11:30 12/08/19 06:00 INR, PTT INR 2.38 (0.83-1.09) H 12/05/19 10:35 Assessment/Plan 69 y/o man with functional quadraplegia, cerebral palsy, parkinsons, chronic trach/JT with recurrent volvulous presents with fever, purulent drainage from multiple decubitus ulcers on sacrum and hips and noted to have NOAH 1. Acute kidney injury now improved 2. Sepsis/PNA/Infected Decubitus ulcers 3. Acute on chronic anemia 4. Metabolic acidosis 5. Chronic respiratory failure Renal function stable Serum bicarbonate down trending, if continues to do so may need oral bicarbonate ? if pt is having diarrhea Continue antibiotics as per ID Vent support via trach Hgb improved, trend for now. Thank you Mat Julian DO
--- NOTE | 2019-12-08 16:14 | RAPID ---
Physical Examination Vital Signs: Vital Signs Temperature 99.2 F 12/08/19 14:00 Pulse Rate 98 H 12/08/19 15:33 Respiratory Rate 19 12/08/19 15:33 Blood Pressure 94/50 L 12/08/19 14:00 O2 Sat by Pulse Oximetry (%) 98 12/08/19 15:33 Labs: CBC, BMP 12/08/19 11:30 12/08/19 06:00 Rapid Response - Rapid Response Assessment: [employer] responded immediately. Report was given that patient desaturated into the 60s. Pt is trach to vent. Pt on vent settings FiO2 100, PEEP 5, plateau pressure 28, peak 44. PE: L lung inspiratory sounds diminished. R rhonci. S1 and S2 normal Trach to vent PEG tube Lethargic, non responsive to commands. CXR ordered STAT PEEP increased to 8 Duonebs STAT ICU consulted Primary team notified Continue to monitor Will order ABG for 30mins Pt reassessed, improvement noted in auscultative lung exam following duonebs. Continue to monitor
[2019-12-08 16:56] LABS: ARTERIAL BLD GAS O2 SATURATION 99.6 mmHg (95-98); ARTERIAL BLOOD GAS BASE EXCESS -1.6 mmol/L (-2-2); ARTERIAL BLOOD GAS PO2 271.4 mmHg (80-100); ARTERIAL BLOOD GAS pH 7.416 (7.350-7.450)
[2019-12-08 16:57] LABS: ALLENS TEST POSITIVE; PT'S TEMP N
[2019-12-08 16:58] LABS: VENT MODE A/C; VENT RATE 12
[2019-12-08] MEDS: COLLAGENASE CLOSTRIDIUM HIST. 30 GRAMS TUBE TP SCH (18:34)
[2019-12-08] MEDS: MULTIVIT-MINERALS ORAL LIQUID PO SCH (18:59)
[2019-12-08] MEDS: ALBUTEROL SO4 2.5/IPRATROPIUM 0.5 INH SOL 3 ML VIAL.NEB. NEB SCH (20:30)
[2019-12-08] MEDS: ASCORBIC ACID 500 MG TABLET (FP) PO SCH (21:43)
[2019-12-09] MEDS ORDERED: PIPERACILLIN/TAZOBACTAM 3.375 GM VIAL IVPB ONE ×3 (01:33→18:18)
[2019-12-09] MEDS ORDERED: DEXTROSE 5%-WATER - 50 ML IVPB ONE ×3 (01:33→18:18)
[2019-12-09] MEDS: PIPERACILLIN/TAZOB 3.375 GM 3.375 GM in DEXTROSE 5%-WATER - 50 ML IVPB SCH ×3 (02:05→18:27)
[2019-12-09] MEDS: VANCOMYCIN 250 MG/5 ML ORAL SOLUTION PO SCH ×3 (06:38→18:27)
--- NOTE | 2019-12-09 08:01 | PN ---
Progress Note, Physician History of Present Illness: pulmonary events for last night noted ,pt currently comfortable on ac mode,fio2 50%,peep 8 ,o2 sat 99% - Current Medication List Current Medications: Active Medications Albuterol/Ipratropium (Duoneb -) 1 amp NEB RTID [facility] Last Admin: 12/08/19 20:30 Dose: 1 amp Documented by: Amino Acids (Prosource No Carb Liquid Pkt) 30 ml PO DAILY@0800 [facility] Last Admin: 12/08/19 09:30 Dose: 30 ml Documented by: Ascorbic Acid (Vitamin C -) 500 mg PO BID [facility] Last Admin: 12/08/19 21:43 Dose: 500 mg Documented by: Collagenase (Santyl -) 1 applic TP DAILY [facility]; Protocol Last Admin: 12/08/19 18:34 Dose: 1 applic Documented by: Ferrous Sulfate (Feosol) 300 mg GT DAILY [facility] Heparin Sodium (Porcine) (Heparin -) 5,000 unit SQ BID [facility] Last Admin: 12/08/19 21:43 Dose: 5,000 unit Documented by: Metronidazole (Flagyl 250mg Premixed Ivpb -) 250 mg in 50 mls @ 50 mls/hr IVPB Q8H-IV [facility] Last Admin: 12/09/19 01:07 Dose: 50 mls/hr Documented by: Piperacillin Sod/Tazobactam (Sod 3.375 gm/ Dextrose) 50 mls @ 100 mls/hr IVPB Q8H-IV [facility]; Protocol Last Admin: 12/09/19 02:05 Dose: 100 mls/hr Documented by: Vancomycin HCl 750 mg/ (Dextrose) 250 mls @ 250 mls/hr IVPB Q12H [facility]; Protocol Last Admin: 12/08/19 21:43 Dose: 250 mls/hr Documented by: Multivitamins/Minerals (Certavite-Antioxidant Liquid) 15 ml PO DAILY [facility] Last Admin: 12/08/19 18:59 Dose: 15 ml Documented by: Pantoprazole Sodium (Protonix Iv) 40 mg IVPUSH DAILY [facility] Last Admin: 12/08/19 10:54 Dose: 40 mg Documented by: Vancomycin HCl (Vancomycin Oral Solution) 125 mg PO Q6HPO [facility] Last Admin: 12/09/19 06:38 Dose: 125 mg Documented by: - Objective Vital Signs: Vital Signs Temperature 98.7 F 12/09/19 06:00 Pulse Rate 99 H 12/09/19 06:00 Respiratory Rate 20 12/09/19 06:00 Blood Pressure 97/57 L 12/09/19 06:00 O2 Sat by Pulse Oximetry (%) 99 12/09/19 06:00 Constitutional: Yes: Cachectic, Other (poorly responsive) Eyes: Yes: WNL HENT: Yes: WNL Neck: Yes: WNL Cardiovascular: Yes: Regular Rate and Rhythm, S1, S2 Respiratory: Yes: Diminished, Mechanically Ventilated Gastrointestinal: Yes: Normal Bowel Sounds, Soft Extremities: Yes: Other (contracted) Edema: No Labs: CBC, BMP 12/08/19 11:30 - ....Imaging Chest X-ray: Image Reviewed Problem List - Problems (1) Lactic acidosis Code(s): E87.2 - ACIDOSIS (2) Pneumonia Code(s): J18.9 - PNEUMONIA, UNSPECIFIED ORGANISM (3) Sepsis Code(s): A41.9 - SEPSIS, UNSPECIFIED ORGANISM (4) Anemia Code(s): D64.9 - ANEMIA, UNSPECIFIED Qualifiers: (5) COPD (chronic obstructive pulmonary disease) Code(s): J44.9 - CHRONIC OBSTRUCTIVE PULMONARY DISEASE, UNSPECIFIED Qualifiers: (6) Cerebral palsy Code(s): G80.9 - CEREBRAL PALSY, UNSPECIFIED Qualifiers: (7) Chronic respiratory failure Code(s): J96.10 - CHRONIC RESPIRATORY FAILURE, UNSP W HYPOXIA OR HYPERCAPNIA Qualifiers: (8) Decubital ulcer Code(s): L89.90 - PRESSURE ULCER OF UNSPECIFIED SITE, UNSPECIFIED STAGE (9) Parkinson disease Code(s): G20 - PARKINSON'S DISEASE (10) Severe malnutrition Code(s): E43 - UNSPECIFIED SEVERE PROTEIN-CALORIE MALNUTRITION Assessment/Plan ASSESSMENT AND PLAN: Pneumonia Infected Decubitus Ulcers h/o C diff colitis Severe Sepsis Lactic Acidosis Chronic Respiratory Failure Cerebral Palsy Parkinsons Anemia - antibiotics - IVF - monitor urine output, creatinine - wound care - continue volume assist control - poor candidate for weaning - enteral feeds - DVT/GI prophylaxis - f/u chest x-ray - reduce peep to 8 - sacral wound debridement in am DR HERNANDEZ
[2019-12-09] MEDS: ALBUTEROL SO4 2.5/IPRATROPIUM 0.5 INH SOL 3 ML VIAL.NEB. NEB SCH ×3 (08:22→20:10)
--- NOTE | 2019-12-09 08:55 | PN ---
Progress Note, Physician Chief Complaint: Pneumonia Chronic respiratory failure VRE Anemia Cachexia History of Present Illness: [facility] awaiting labs for today Rapid response yesterday for hypoxia J tube feeding were stopped - Current Medication List Current Medications: Active Medications Albuterol/Ipratropium (Duoneb -) 1 amp NEB RTID [facility] Last Admin: 12/09/19 08:22 Dose: 1 amp Documented by: Amino Acids (Prosource No Carb Liquid Pkt) 30 ml PO DAILY@0800 [facility] Last Admin: 12/08/19 09:30 Dose: 30 ml Documented by: Ascorbic Acid (Vitamin C -) 500 mg PO BID [facility] Last Admin: 12/08/19 21:43 Dose: 500 mg Documented by: Collagenase (Santyl -) 1 applic TP DAILY [facility]; Protocol Last Admin: 12/08/19 18:34 Dose: 1 applic Documented by: Ferrous Sulfate (Feosol) 300 mg GT DAILY [facility] Heparin Sodium (Porcine) (Heparin -) 5,000 unit SQ BID [facility] Last Admin: 12/08/19 21:43 Dose: 5,000 unit Documented by: Metronidazole (Flagyl 250mg Premixed Ivpb -) 250 mg in 50 mls @ 50 mls/hr IVPB Q8H-IV [facility] Last Admin: 12/09/19 01:07 Dose: 50 mls/hr Documented by: Piperacillin Sod/Tazobactam (Sod 3.375 gm/ Dextrose) 50 mls @ 100 mls/hr IVPB Q8H-IV [facility]; Protocol Last Admin: 12/09/19 02:05 Dose: 100 mls/hr Documented by: Vancomycin HCl 750 mg/ (Dextrose) 250 mls @ 250 mls/hr IVPB Q12H [facility]; Protocol Last Admin: 12/08/19 21:43 Dose: 250 mls/hr Documented by: Multivitamins/Minerals (Certavite-Antioxidant Liquid) 15 ml PO DAILY [facility] Last Admin: 12/08/19 18:59 Dose: 15 ml Documented by: Pantoprazole Sodium (Protonix Iv) 40 mg IVPUSH DAILY [facility] Last Admin: 12/08/19 10:54 Dose: 40 mg Documented by: Vancomycin HCl (Vancomycin Oral Solution) 125 mg PO Q6HPO [facility] Last Admin: 12/09/19 06:38 Dose: 125 mg Documented by: - Objective Vital Signs: Vital Signs Temperature 98.7 F 12/09/19 06:00 Pulse Rate 99 H 12/09/19 06:00 Respiratory Rate 20 12/09/19 08:20 Blood Pressure 97/57 L 12/09/19 06:00 O2 Sat by Pulse Oximetry (%) 99 12/09/19 08:20 Constitutional: Yes: No Distress, Calm, Cachectic Cardiovascular: Yes: Regular Rate and Rhythm Respiratory: Yes: Regular, Mechanically Ventilated, Rhonchi (diffuse) Gastrointestinal: Yes: Normal Bowel Sounds, Soft Genitourinary: Yes: Maravilla Present Musculoskeletal: Yes: Muscle Weakness Extremities: Yes: Other (generalized atrophy + contractures) Edema: No Peripheral Pulses WNL: Yes Neurological: Yes: Pre-Existing Deficit Labs: CBC, BMP 12/08/19 11:30 12/08/19 06:00 INR, PTT INR 2.38 (0.83-1.09) H 12/05/19 10:35 Problem List - Problems (1) Pneumonia Assessment/Plan: -Recurrent -2/2 to aspiration -IV abx -Pulmonary and ID consult -Mech vent -Instructed nursing staff to make sure HOB >45 degrees at all times Problems reviewed: Yes Code(s): J18.9 - PNEUMONIA, UNSPECIFIED ORGANISM (2) Sepsis Assessment/Plan: -resolved Problems reviewed: Yes Code(s): A41.9 - SEPSIS, UNSPECIFIED ORGANISM (3) Anemia Assessment/Plan: -Previously TAM -Continue feosol -Iron stores improved -Transfuse only if Hg<7.0 to avoid fluid overload Problems reviewed: Yes Code(s): D64.9 - ANEMIA, UNSPECIFIED Qualifiers: (4) Cerebral palsy Problems reviewed: Yes Code(s): G80.9 - CEREBRAL PALSY, UNSPECIFIED Qualifiers: (5) Chronic respiratory failure Assessment/Plan: -Mech vent -Pulmonary on board -Bronchodilators -Not a candidate for weaning at this time Problems reviewed: Yes Code(s): J96.10 - CHRONIC RESPIRATORY FAILURE, UNSP W HYPOXIA OR HYPERCAPNIA Qualifiers: (6) Functional quadriplegia Problems reviewed: Yes Code(s): R53.2 - FUNCTIONAL QUADRIPLEGIA (7) Decubital ulcer Assessment/Plan: -Seen by Vascular surgery -Plan for debridement in OR on 12/10/19 -NPO past midnight Problems reviewed: Yes Code(s): L89.90 - PRESSURE ULCER OF UNSPECIFIED SITE, UNSPECIFIED STAGE (8) Severe malnutrition Assessment/Plan: -Prosource -Multivitamin -Vitamin C Problems reviewed: Yes Code(s): E43 - UNSPECIFIED SEVERE PROTEIN-CALORIE MALNUTRITION Assessment/Plan See problem list
[2019-12-09] MEDS ORDERED: PT OWN MED DRAWER 7, Y5N ONE (09:50)
[2019-12-09] MEDS: FERROUS SO4 300 MG/5 ML ORAL SOLN UNIT DOSE CUPS GT SCH (10:02)
[2019-12-09] MEDS: AMINO ACIDS/PROTEIN HYDROLYS 30 ML LIQUID.PKT PO SCH (10:02)
[2019-12-09] MEDS: MULTIVIT-MINERALS ORAL LIQUID PO SCH (10:04)
[2019-12-09] MEDS: PANTOPRAZOLE SODIUM 40 MG VIAL IVPUSH SCH (10:05)
[2019-12-09] MEDS: ASCORBIC ACID 500 MG TABLET (FP) PO SCH ×2 (10:05→22:08)
[2019-12-09] MEDS: HEPARIN NA (PORCINE) 5,000 UNITS/ML 1ML VIAL SQ SCH (10:17)
[2019-12-09 10:58] LABS: BASO % 0.8 % (0-2.0); EOS % 1.5 % (0-4.5); HEMATOCRIT 26.6 % (35.4-49); HEMOGLOBIN 8.9 GM/dL (11.7-16.9); MCH 29.6 pg (25.7-33.7); MCHC 33.4 g/dl (32.0-35.9); MEAN CELL VOLUME 88.6 fl (80-96); MEAN PLT VOLUME 6.8 fl (7.5-11.1); MONO % 5.1 % (3.8-10.2); NEUT % 84.6 % (42.8-82.8); PLATELET COUNT 753 K/MM3 (134-434); RBC 3.01 M/mm3 (4.00-5.60); RDW 16.4 % (11.9-15.9); WHITE BLOOD COUNT 15.3 K/mm3 (4.0-10.0)
[2019-12-09 11:24] LABS: ALBUMIN 0.9 g/dl (3.4-5.0); ALK PHOS 77 U/L (45-117); ANION GAP 9 MMOL/L (8-16); BILIRUBIN,TOTAL 0.5 mg/dL (0.2-1); BLOOD UREA NITROGEN 7.7 mg/dL (7-18); CALCIUM 8.7 mg/dL (8.5-10.1); CHLORIDE 111 mmol/L (98-107); CO2 22 mmol/L (21-32); CREATININE 0.4 mg/dL (0.55-1.3); GLUCOSE,RANDOM 77 mg/dL (74-106); MAGNESIUM 1.6 mg/dL (1.8-2.4); PHOSPHOROUS 2.3 mg/dL (2.5-4.9); POTASSIUM 3.1 mmol/L (3.5-5.1); SGOT/AST 15 U/L (15-37); SGPT/ALT < 6 U/L (13-61); SODIUM 141 mmol/L (136-145); TOT PROT 5.6 g/dl (6.4-8.2)
[2019-12-09] MEDS: TRIAMCINOLONE ACET 0.5% OINT 15 GM TUBE TP SCH ×2 (11:24→22:08)
--- NOTE | 2019-12-09 11:29 | SPA.PREOP ---
- PRE-OP NOTE Dx: bilateral hip and back sacral debuitus Planned Procedure: debridement of b/l hip and back decubitus Surgeon: Last Vital Signs Temp Pulse Resp BP Pulse Ox 98.7 F 99 H 20 97/57 L 99 12/09/19 06:00 12/09/19 06:00 12/09/19 08:20 12/09/19 06:00 12/09/19 08:20 Lab Results WBC 15.3 K/mm3 (4.0-10.0) H 12/09/19 10:20 RBC 3.01 M/mm3 (4.00-5.60) L 12/09/19 10:20 Hgb 8.9 GM/dL (11.7-16.9) L 12/09/19 10:20 Hct 26.6 % (35.4-49) L 12/09/19 10:20 MCV 88.6 fl (80-96) 12/09/19 10:20 MCHC 33.4 g/dl (32.0-35.9) 12/09/19 10:20 RDW 16.4 % (11.9-15.9) H 12/09/19 10:20 Plt Count 753 K/MM3 (134-434) H 12/09/19 10:20 INR 2.38 (0.83-1.09) H 12/05/19 10:35 Sodium 141 mmol/L (136-145) 12/09/19 10:20 Potassium 3.1 mmol/L (3.5-5.1) L 12/09/19 10:20 Chloride 111 mmol/L (98-107) H 12/09/19 10:20 Carbon Dioxide 22 mmol/L (21-32) 12/09/19 10:20 Anion Gap 9 MMOL/L (8-16) 12/09/19 10:20 BUN 7.7 mg/dL (7-18) 12/09/19 10:20 Creatinine 0.4 mg/dL (0.55-1.3) L 12/09/19 10:20 Random Glucose 77 mg/dL (74-106) 12/09/19 10:20 Calcium 8.7 mg/dL (8.5-10.1) 12/09/19 10:20 Blood Type O POSITIVE 12/07/19 13:40 Antibody Screen Positive 12/07/19 13:40 - IMAGING Chest X-ray: Other (atlectasis of the left basae, tracheostomy) - ASSESSMENT/PLAN 1. Make NPO after midnight except po meds 2. GI/DVT PPX 3. Medical optimization d/w Medical staff INR 2.4, ordered repeat INR not on any anticoagulation and normal value in the past in August. Pt with hypoxic events overnight now sating 99% on fio2 50%, peep 8. Seen by Pulmonary 4. Consent to be obtained by surgeon after risks, benefits and alternatives discussed with patient and or Health Care Proxy.
[2019-12-09] MEDS ORDERED: POTASSIUM CHLORIDE ORAL LIQUID 20 MEQ/15 ML GT ONE (11:33)
[2019-12-09] MEDS: KCL 10 MEQ IVPB 10 MEQ/100 ML INFUS.BAG IVPB SCH ×3 (13:07→16:42)
[2019-12-09 13:20] LABS: INR 1.73 (0.83-1.09); PROTHROMBIN TIME (PATIENT) 20.5 SEC (9.7-13.0)
[2019-12-09] MEDS: COLLAGENASE CLOSTRIDIUM HIST. 30 GRAMS TUBE TP SCH (14:00)
[2019-12-09] MEDS: VANCOMYCIN 750 MG in DEXTROSE 5%-WATER - 250 ML IVPB SCH (15:22)
--- NOTE | 2019-12-09 15:30 | PN ---
Progress Note (short form) - Note Progress Note: resting comfortably trach to vent Vital Signs Period Temp Pulse Resp BP Sys/Gomez Pulse Ox Last 24 Hr 98.2 F-100.6 F 94-111 12-28 97-131/53-77 88-100 cor-rrr lungs decreased bs at bases abd soft, +GT +JT, less erythema noted ext contracted with multiple ulcers CBC, BMP 12/09/19 10:20 12/09/19 10:20 Microbiology 12/07/19 18:20 Hip - Left Gram Stain - Final 12/07/19 18:20 Hip - Left Wound Culture - Preliminary Pseudomonas Species Proteus Species 12/05/19 10:35 Blood - Peripheral Venous Blood Culture - Preliminary NO GROWTH OBTAINED AFTER 96 HOURS, INCUBATION TO CONTINUE FOR 1 DAYS. 12/05/19 10:35 Blood - Peripheral Venous Blood Culture - Preliminary NO GROWTH OBTAINED AFTER 96 HOURS, INCUBATION TO CONTINUE FOR 1 DAYS. 12/07/19 12:10 Sputum - Endotrachea Suction/Ventilator Gram Stain - Final 12/07/19 12:10 Sputum - Endotrachea Suction/Ventilator Sputum Culture - Preliminary Proteus Species Pseudomonas Aeruginosa Lactose Fermenting Neg Bacilli 12/05/19 12:10 Urine - Urine Maravilla Urine Culture - Final Vr Ec Faecium a/p chronic resp failure trach to vent gt and jt contracted with multiple decubs sepsis cavitary pneumonia RUL, left lung pneumonia infected decubiti abdominal wall cellulitis history of cdiff on po vancomycin currently no pressors hay culture send sputum culture send cdiff ISOLATE vre isolation- no need to treat urine isolate
[2019-12-09] MEDS ORDERED: MAGNESIUM OXIDE 400 MG TABLET (FP) GT ONE (17:53)
[2019-12-09] MEDS ORDERED: ACETAMINOPHEN 1000 MG/100 ML VIAL (NON FORMULARY) IVPB ONE (22:37)
[2019-12-10] MEDS ORDERED: PT OWN MED DRAWER 7, Y5N ONE ×2 (00:05→23:54)
[2019-12-10] MEDS: VANCOMYCIN 250 MG/5 ML ORAL SOLUTION PO SCH ×4 (00:23→18:03)
[2019-12-10] MEDS ORDERED: PIPERACILLIN/TAZOBACTAM 3.375 GM VIAL IVPB ONE ×4 (01:58→18:11)
[2019-12-10] MEDS ORDERED: DEXTROSE 5%-WATER - 50 ML IVPB ONE ×3 (01:59→17:38)
[2019-12-10] MEDS: PIPERACILLIN/TAZOB 3.375 GM 3.375 GM in DEXTROSE 5%-WATER - 50 ML IVPB SCH ×3 (02:04→17:41)
[2019-12-10] MEDS: ALBUTEROL SO4 2.5/IPRATROPIUM 0.5 INH SOL 3 ML VIAL.NEB. NEB SCH ×3 (07:46→19:53)
--- NOTE | 2019-12-10 07:46 | PN ---
Progress Note, Physician History of Present Illness: pulmonary no change poorly responsive on vent support,afebrile - Current Medication List Current Medications: Active Medications Albuterol/Ipratropium (Duoneb -) 1 amp NEB RTID [facility] Last Admin: 12/09/19 20:10 Dose: 1 amp Documented by: Amino Acids (Prosource No Carb Liquid Pkt) 30 ml PO DAILY@0800 [facility] Last Admin: 12/09/19 10:02 Dose: 30 ml Documented by: Ascorbic Acid (Vitamin C -) 500 mg PO BID [facility] Last Admin: 12/09/19 22:08 Dose: 500 mg Documented by: Collagenase (Santyl -) 1 applic TP DAILY [facility]; Protocol Last Admin: 12/09/19 14:00 Dose: 1 applic Documented by: Ferrous Sulfate (Feosol) 300 mg GT DAILY [facility] Last Admin: 12/09/19 10:02 Dose: 300 mg Documented by: Heparin Sodium (Porcine) (Heparin -) 5,000 unit SQ BID [facility] Last Admin: 12/09/19 10:17 Dose: 5,000 unit Documented by: Piperacillin Sod/Tazobactam (Sod 3.375 gm/ Dextrose) 50 mls @ 100 mls/hr IVPB Q8H-IV [facility]; Protocol Last Admin: 12/10/19 02:04 Dose: 100 mls/hr Documented by: Multivitamins/Minerals (Certavite-Antioxidant Liquid) 15 ml PO DAILY [facility] Last Admin: 12/09/19 10:04 Dose: 15 ml Documented by: Pantoprazole Sodium (Protonix Iv) 40 mg IVPUSH DAILY [facility] Last Admin: 12/09/19 10:05 Dose: 40 mg Documented by: Triamcinolone Acetonide (Aristocort 0.5% Ointment -) 1 applic TP BID [facility] Last Admin: 12/09/19 22:08 Dose: 1 applic Documented by: Vancomycin HCl (Vancomycin Oral Solution) 125 mg PO Q6HPO [facility] Last Admin: 12/10/19 06:10 Dose: 125 mg Documented by: - Objective Vital Signs: Vital Signs Temperature 98.1 F 12/10/19 06:00 Pulse Rate 96 H 12/10/19 06:00 Respiratory Rate 24 H 12/10/19 06:00 Blood Pressure 119/62 12/10/19 06:00 O2 Sat by Pulse Oximetry (%) 100 12/10/19 06:00 Constitutional: Yes: Cachectic, Other (poorly responsive) Eyes: Yes: WNL HENT: Yes: WNL Neck: Yes: Supple (trach) Cardiovascular: Yes: Regular Rate and Rhythm, S1, S2 Respiratory: Yes: Rhonchi (few scatttered rhonchi) Gastrointestinal: Yes: Normal Bowel Sounds, Soft Extremities: Yes: Other (contracted) Labs: CBC, BMP INR 1.73 (0.83-1.09) H 12/09/19 12:34 Problem List - Problems (1) Lactic acidosis Code(s): E87.2 - ACIDOSIS (2) Pneumonia Code(s): J18.9 - PNEUMONIA, UNSPECIFIED ORGANISM (3) Sepsis Code(s): A41.9 - SEPSIS, UNSPECIFIED ORGANISM (4) Anemia Code(s): D64.9 - ANEMIA, UNSPECIFIED Qualifiers: (5) COPD (chronic obstructive pulmonary disease) Code(s): J44.9 - CHRONIC OBSTRUCTIVE PULMONARY DISEASE, UNSPECIFIED Qualifiers: (6) Cerebral palsy Code(s): G80.9 - CEREBRAL PALSY, UNSPECIFIED Qualifiers: (7) Chronic respiratory failure Code(s): J96.10 - CHRONIC RESPIRATORY FAILURE, UNSP W HYPOXIA OR HYPERCAPNIA Qualifiers: (8) Decubital ulcer Code(s): L89.90 - PRESSURE ULCER OF UNSPECIFIED SITE, UNSPECIFIED STAGE (9) Parkinson disease Code(s): G20 - PARKINSON'S DISEASE (10) Severe malnutrition Code(s): E43 - UNSPECIFIED SEVERE PROTEIN-CALORIE MALNUTRITION Assessment/Plan ASSESSMENT AND PLAN: Pneumonia Infected Decubitus Ulcers h/o C diff colitis Severe Sepsis Lactic Acidosis Chronic Respiratory Failure Cerebral Palsy Parkinsons Anemia - - IVF - monitor urine output, creatinine - wound care - continue volume assist control - poor candidate for weaning - enteral feeds - DVT/GI prophylaxis - f/u chest x-ray - reduce peep to 5 - DR HERNANDEZ
[2019-12-10] MEDS: AMINO ACIDS/PROTEIN HYDROLYS 30 ML LIQUID.PKT PO SCH (08:00)
--- NOTE | 2019-12-10 08:24 | PN ---
Progress Note, Physician Chief Complaint: Pneumonia Chronic respiratory failure VRE Anemia Cachexia History of Present Illness: NAD mech vent to OR for wound debridement today - Current Medication List Current Medications: Active Medications Albuterol/Ipratropium (Duoneb -) 1 amp NEB RTID [facility] Last Admin: 12/10/19 07:46 Dose: 1 amp Documented by: Amino Acids (Prosource No Carb Liquid Pkt) 30 ml PO DAILY@0800 [facility] Last Admin: 12/10/19 08:00 Dose: Not Given Documented by: Ascorbic Acid (Vitamin C -) 500 mg PO BID [facility] Last Admin: 12/09/19 22:08 Dose: 500 mg Documented by: Collagenase (Santyl -) 1 applic TP DAILY [facility]; Protocol Last Admin: 12/09/19 14:00 Dose: 1 applic Documented by: Ferrous Sulfate (Feosol) 300 mg GT DAILY [facility] Last Admin: 12/09/19 10:02 Dose: 300 mg Documented by: Heparin Sodium (Porcine) (Heparin -) 5,000 unit SQ BID [facility] Last Admin: 12/09/19 10:17 Dose: 5,000 unit Documented by: Piperacillin Sod/Tazobactam (Sod 3.375 gm/ Dextrose) 50 mls @ 100 mls/hr IVPB Q8H-IV [facility]; Protocol Last Admin: 12/10/19 02:04 Dose: 100 mls/hr Documented by: Multivitamins/Minerals (Certavite-Antioxidant Liquid) 15 ml PO DAILY [facility] Last Admin: 12/09/19 10:04 Dose: 15 ml Documented by: Pantoprazole Sodium (Protonix Iv) 40 mg IVPUSH DAILY [facility] Last Admin: 12/09/19 10:05 Dose: 40 mg Documented by: Triamcinolone Acetonide (Aristocort 0.5% Ointment -) 1 applic TP BID [facility] Last Admin: 12/09/19 22:08 Dose: 1 applic Documented by: Vancomycin HCl (Vancomycin Oral Solution) 125 mg PO Q6HPO [facility] Last Admin: 12/10/19 06:10 Dose: 125 mg Documented by: - Objective Vital Signs: Vital Signs Temperature 98.1 F 12/10/19 06:00 Pulse Rate 96 H 12/10/19 06:00 Respiratory Rate 16 12/10/19 08:02 Blood Pressure 119/62 12/10/19 06:00 O2 Sat by Pulse Oximetry (%) 98 12/10/19 08:02 Constitutional: Yes: No Distress, Calm, Cachectic Cardiovascular: Yes: Regular Rate and Rhythm Respiratory: Yes: Regular, Mechanically Ventilated, Rhonchi (diffuse) Gastrointestinal: Yes: Normal Bowel Sounds, Soft Genitourinary: Yes: Maravilla Present Musculoskeletal: Yes: Muscle Weakness Extremities: Yes: Other (contracted) Edema: Yes (LUE) Peripheral Pulses WNL: Yes Integumentary: Yes: Pressure Ulcer (multiple- see engineer exhauster documentation) Neurological: Yes: Pre-Existing Deficit Labs: CBC, BMP 12/09/19 10:20 12/09/19 10:20 INR, PTT INR 1.73 (0.83-1.09) H 12/09/19 12:34 Problem List - Problems (1) Pneumonia Assessment/Plan: -Recurrent -2/2 to aspiration -IV abx -Pulmonary and ID consult -Mech vent -Instructed nursing staff to make sure HOB >45 degrees at all times Problems reviewed: Yes Code(s): J18.9 - PNEUMONIA, UNSPECIFIED ORGANISM (2) Sepsis Assessment/Plan: -resolved Problems reviewed: Yes Code(s): A41.9 - SEPSIS, UNSPECIFIED ORGANISM (3) Anemia Assessment/Plan: -Previously TAM -Continue feosol -Iron stores improved -Transfuse only if Hg<7.0 to avoid fluid overload Problems reviewed: Yes Code(s): D64.9 - ANEMIA, UNSPECIFIED Qualifiers: (4) Cerebral palsy Problems reviewed: Yes Code(s): G80.9 - CEREBRAL PALSY, UNSPECIFIED Qualifiers: (5) Chronic respiratory failure Assessment/Plan: -Mech vent -Pulmonary on board -Bronchodilators -Not a candidate for weaning at this time Problems reviewed: Yes Code(s): J96.10 - CHRONIC RESPIRATORY FAILURE, UNSP W HYPOXIA OR HYPERCAPNIA Qualifiers: (6) Functional quadriplegia Problems reviewed: Yes Code(s): R53.2 - FUNCTIONAL QUADRIPLEGIA (7) Decubital ulcer Assessment/Plan: -Seen by Vascular surgery -Plan for debridement in OR -NPO -Heparin dvt ppx held Problems reviewed: Yes Code(s): L89.90 - PRESSURE ULCER OF UNSPECIFIED SITE, UNSPECIFIED STAGE (8) Severe malnutrition Assessment/Plan: -Prosource -Multivitamin -Vitamin C Problems reviewed: Yes Code(s): E43 - UNSPECIFIED SEVERE PROTEIN-CALORIE MALNUTRITION Assessment/Plan See problem list
[2019-12-10] MEDS: PANTOPRAZOLE SODIUM 40 MG VIAL IVPUSH SCH (10:20)
[2019-12-10] MEDS: MULTIVIT-MINERALS ORAL LIQUID PO SCH (10:25)
[2019-12-10] MEDS: TRIAMCINOLONE ACET 0.5% OINT 15 GM TUBE TP SCH ×2 (10:26→23:59)
[2019-12-10] MEDS: FERROUS SO4 300 MG/5 ML ORAL SOLN UNIT DOSE CUPS GT SCH (10:26)
[2019-12-10] MEDS: ASCORBIC ACID 500 MG TABLET (FP) PO SCH ×2 (10:27→23:58)
[2019-12-10 10:55] LABS: BASO % 0.7 % (0-2.0); EOS % 1.3 % (0-4.5); HEMATOCRIT 26.1 % (35.4-49); HEMOGLOBIN 8.4 GM/dL (11.7-16.9); LYMPH % 10.4 % (8-40); MCH 28.7 pg (25.7-33.7); MCHC 32.1 g/dl (32.0-35.9); MEAN CELL VOLUME 89.3 fl (80-96); MONO % 5.3 % (3.8-10.2); NEUT % 82.3 % (42.8-82.8); PLATELET COUNT 716 K/MM3 (134-434); RBC 2.92 M/mm3 (4.00-5.60); RDW 16.7 % (11.9-15.9); WHITE BLOOD COUNT 14.5 K/mm3 (4.0-10.0)
[2019-12-10 11:25] LABS: ALBUMIN 0.9 g/dl (3.4-5.0); ALK PHOS 81 U/L (45-117); ANION GAP 5 MMOL/L (8-16); BILIRUBIN,TOTAL 0.3 mg/dL (0.2-1); BLOOD UREA NITROGEN 9.6 mg/dL (7-18); CALCIUM 8.8 mg/dL (8.5-10.1); CHLORIDE 114 mmol/L (98-107); CO2 24 mmol/L (21-32); CREATININE 0.4 mg/dL (0.55-1.3); GLUCOSE,RANDOM 90 mg/dL (74-106); MAGNESIUM 1.8 mg/dL (1.8-2.4); POTASSIUM 4.1 mmol/L (3.5-5.1); SGOT/AST 11 U/L (15-37); SODIUM 143 mmol/L (136-145); TOT PROT 5.9 g/dl (6.4-8.2)
[2019-12-10 11:30] LABS: ANISOCYTOSIS 1+; MACROCYTOSIS 1+; PLATELET ESTIMATE INCREASED
[2019-12-10 11:31] LABS: SGPT/ALT < 6 U/L (13-61)
--- NOTE | 2019-12-10 12:38 | PN ---
Progress Note, Physician Chief Complaint: Fever History of Present Illness: Seen and examined at the bedside on vent via trach awaiting OR today for debridement of sacral wound no overnight events tube feedings being held - Current Medication List Current Medications: Active Medications Albuterol/Ipratropium (Duoneb -) 1 amp NEB RTID [facility] Last Admin: 12/10/19 07:46 Dose: 1 amp Documented by: Amino Acids (Prosource No Carb Liquid Pkt) 30 ml PO DAILY@0800 [facility] Last Admin: 12/10/19 08:00 Dose: Not Given Documented by: Ascorbic Acid (Vitamin C -) 500 mg PO BID [facility] Last Admin: 12/10/19 10:27 Dose: Not Given Documented by: Collagenase (Santyl -) 1 applic TP DAILY [facility]; Protocol Last Admin: 12/09/19 14:00 Dose: 1 applic Documented by: Ferrous Sulfate (Feosol) 300 mg GT DAILY [facility] Last Admin: 12/10/19 10:26 Dose: Not Given Documented by: Heparin Sodium (Porcine) (Heparin -) 5,000 unit SQ BID [facility] Last Admin: 12/09/19 10:17 Dose: 5,000 unit Documented by: Piperacillin Sod/Tazobactam (Sod 3.375 gm/ Dextrose) 50 mls @ 100 mls/hr IVPB Q8H-IV [facility]; Protocol Last Admin: 12/10/19 10:25 Dose: 100 mls/hr Documented by: Multivitamins/Minerals (Certavite-Antioxidant Liquid) 15 ml PO DAILY [facility] Last Admin: 12/10/19 10:25 Dose: Not Given Documented by: Pantoprazole Sodium (Protonix Iv) 40 mg IVPUSH DAILY [facility] Last Admin: 12/10/19 10:20 Dose: 40 mg Documented by: Triamcinolone Acetonide (Aristocort 0.5% Ointment -) 1 applic TP BID [facility] Last Admin: 12/10/19 10:26 Dose: 1 applic Documented by: Vancomycin HCl (Vancomycin Oral Solution) 125 mg PO Q6HPO [facility] Last Admin: 12/10/19 06:10 Dose: 125 mg Documented by: - Objective Vital Signs: Vital Signs Temperature 99.0 F 12/10/19 10:00 Pulse Rate 108 H 12/10/19 10:00 Respiratory Rate 16 12/10/19 11:56 Blood Pressure 102/50 L 12/10/19 10:00 O2 Sat by Pulse Oximetry (%) 99 12/10/19 11:56 Constitutional: Yes: No Distress, Thin HENT: Yes: Atraumatic Cardiovascular: Yes: Regular Rate and Rhythm Respiratory: Yes: Mechanically Ventilated Gastrointestinal: Yes: Soft Edema: No Labs: CBC, BMP 12/10/19 10:32 12/10/19 10:32 INR, PTT INR 1.73 (0.83-1.09) H 12/09/19 12:34 Assessment/Plan 69 y/o man with functional quadraplegia, cerebral palsy, parkinsons, chronic trach/JT with recurrent volvulous presents with fever, purulent drainage from multiple decubitus ulcers on sacrum and hips and noted to have NOAH 1. Acute kidney injury now improved 2. Sepsis/PNA/Infected Decubitus ulcers 3. Acute on chronic anemia 4. Metabolic acidosis 5. Chronic respiratory failure Renal function stable Serum potassium improved s/p supplementation yesterday will start gentle IVF while pt remains NPO for procedure, can discontinue fluids once pt is restarted on feeds Continue antibiotics as per ID Vent support via trach OR for debridement of sacral wound today Thank you Mat Julian DO
[2019-12-10] MEDS ORDERED: D5-1/2NS+40 MEQ KCL - 40 MEQ/1,000 ML INFUS.BAG IV SCH ×3 (12:45→22:27)
[2019-12-10] MEDS: COLLAGENASE CLOSTRIDIUM HIST. 30 GRAMS TUBE TP SCH (14:32)
[2019-12-10] MEDS ORDERED: PROMETHAZINE HCL 25 MG/1 ML VIAL IVPUSH PRN ×2 (17:37→19:29)
[2019-12-10] MEDS ORDERED: ONDANSETRON 4 MG/2 ML VIAL IVPUSH PRN ×2 (17:37→19:29)
[2019-12-10] MEDS ORDERED: LACTATED RINGERS SOLUTION 1,000 ML IV SCH ×2 (17:45→19:29)
[2019-12-10] MEDS ORDERED: LIDOCAINE HCL 1%, 10 MG/ML (20ML VIAL) ONE (18:00)
[2019-12-10] MEDS ORDERED: LIDOCAINE HCL 1%, 10 MG/ML (50 mL VIAL) NR ONE ×2 (18:12)
--- NOTE | 2019-12-10 18:43 | OP ---
Operative Note - Note: Operative Date: 12/10/19 Pre-Operative Diagnosis: Right hip necrotic ulcer, sacral necrotic ulcer Operation: excisional debridement skin, subcutaneous tissue, muscle right hip. Excisional debridement skin, subcutaneous tissue sacrum. Post-Operative Diagnosis: Same as Pre-op Surgeon: Rich Madrid Anesthesia: MAC Estimated Blood Loss (mls): 30 Operative Report Dictated: Yes
[2019-12-10] MEDS: MORPHINE SULFATE 2 MG/ML VIAL IVPUSH PRN (23:56)
[2019-12-10] MEDS: HEPARIN NA (PORCINE) 5,000 UNITS/ML 1ML VIAL SQ SCH (23:58)
[2019-12-11] MEDS: VANCOMYCIN 250 MG/5 ML ORAL SOLUTION PO SCH ×5 (00:08→23:44)
[2019-12-11] MEDS ORDERED: PIPERACILLIN/TAZOBACTAM 3.375 GM VIAL IVPB ONE ×2 (02:26→10:05)
[2019-12-11] MEDS ORDERED: DEXTROSE 5%-WATER - 50 ML IVPB ONE ×2 (02:26→10:05)
[2019-12-11] MEDS: PIPERACILLIN/TAZOB 3.375 GM 3.375 GM in DEXTROSE 5%-WATER - 50 ML IVPB SCH ×2 (02:41→10:54)
[2019-12-11] MEDS: ALBUTEROL SO4 2.5/IPRATROPIUM 0.5 INH SOL 3 ML VIAL.NEB. NEB SCH ×3 (07:46→20:30)
[2019-12-11] MEDS ORDERED: PT OWN MED DRAWER 7, Y5N ONE (10:05)
--- NOTE | 2019-12-11 10:45 | PN ---
Progress Note, Physician Chief Complaint: Pneumonia Chronic respiratory failure VRE Anemia Cachexia History of Present Illness: NAD [facility] vent Operative Date: 12/10/19 Pre-Operative Diagnosis: Right hip necrotic ulcer, sacral necrotic ulcer Operation: excisional debridement skin, subcutaneous tissue, muscle right hip. Excisional debridement skin, subcutaneous tissue sacrum. Post-Operative Diagnosis: Same as Pre-op Surgeon: Rich Madrid Anesthesia: MAC Estimated Blood Loss (mls): 30 Operative Report Dictated: Yes - Current Medication List Current Medications: Active Medications Albuterol/Ipratropium (Duoneb -) 1 amp NEB RTID [facility] Last Admin: 12/11/19 07:46 Dose: 1 amp Documented by: Amino Acids (Prosource No Carb Liquid Pkt) 30 ml PO DAILY@0800 [facility] Ascorbic Acid (Vitamin C -) 500 mg PO BID [facility] Last Admin: 12/10/19 23:58 Dose: 500 mg Documented by: Collagenase (Santyl -) 1 applic TP DAILY [facility]; Protocol Ferrous Sulfate (Feosol) 300 mg GT DAILY [facility] Heparin Sodium (Porcine) (Heparin -) 5,000 unit SQ BID [facility] Last Admin: 12/10/19 23:58 Dose: 5,000 unit Documented by: Piperacillin Sod/Tazobactam (Sod 3.375 gm/ Dextrose) 50 mls @ 100 mls/hr IVPB Q8H-IV [facility]; Protocol Last Admin: 12/11/19 02:41 Dose: 100 mls/hr Documented by: Dextrose/Sodium Chloride (D5-1/2ns+40 Meq Kcl -) 40 meq in 1,000 mls @ 75 mls/hr IV ASDIR [facility] Last Admin: 12/10/19 23:51 Dose: Not Given Documented by: Morphine Sulfate (Morphine Sulfate) 2 mg IVPUSH Q6H PRN PRN Reason: PAIN LEVEL 7 - 10 Last Admin: 12/10/19 23:56 Dose: 2 mg Documented by: Multivitamins/Minerals (Certavite-Antioxidant Liquid) 15 ml PO DAILY [facility] Pantoprazole Sodium (Protonix Iv) 40 mg IVPUSH DAILY [facility] Triamcinolone Acetonide (Aristocort 0.5% Ointment -) 1 applic TP BID [facility] Last Admin: 12/10/19 23:59 Dose: 1 applic Documented by: Vancomycin HCl (Vancomycin Oral Solution) 125 mg PO Q6HPO [facility] Last Admin: 12/11/19 05:42 Dose: 125 mg Documented by: - Objective Vital Signs: Vital Signs Temperature 98.4 F 12/11/19 05:56 Pulse Rate 80 12/11/19 07:46 Respiratory Rate 14 12/11/19 07:46 Blood Pressure 106/68 12/11/19 05:56 O2 Sat by Pulse Oximetry (%) 99 12/11/19 07:46 Constitutional: Yes: No Distress, Calm, Cachectic Cardiovascular: Yes: Regular Rate and Rhythm Respiratory: Yes: Regular, Mechanically Ventilated, Rhonchi (diffuse) Gastrointestinal: Yes: Normal Bowel Sounds, Soft Genitourinary: Yes: Maravilla Present Musculoskeletal: Yes: Muscle Weakness Extremities: Yes: Other (contracted) Edema: Yes (BLUE) Peripheral Pulses WNL: Yes Integumentary: Yes: Pressure Ulcer (multiple) Neurological: Yes: Pre-Existing Deficit Labs: CBC, BMP 12/10/19 10:32 12/10/19 10:32 INR, PTT INR 1.73 (0.83-1.09) H 12/09/19 12:34 Problem List - Problems (1) Pneumonia Assessment/Plan: -Recurrent -2/2 to aspiration -IV abx -Pulmonary and ID consult -Mech vent -Instructed nursing staff to make sure HOB >45 degrees at all times Problems reviewed: Yes Code(s): J18.9 - PNEUMONIA, UNSPECIFIED ORGANISM (2) Sepsis Assessment/Plan: -resolved Problems reviewed: Yes Code(s): A41.9 - SEPSIS, UNSPECIFIED ORGANISM (3) Anemia Assessment/Plan: -Previously TAM -Continue feosol -Iron stores improved -Transfuse only if Hg<7.0 to avoid fluid overload Problems reviewed: Yes Code(s): D64.9 - ANEMIA, UNSPECIFIED Qualifiers: (4) Cerebral palsy Problems reviewed: Yes Code(s): G80.9 - CEREBRAL PALSY, UNSPECIFIED Qualifiers: (5) Chronic respiratory failure Assessment/Plan: -Mech vent -Pulmonary on board -Bronchodilators -Not a candidate for weaning at this time Problems reviewed: Yes Code(s): J96.10 - CHRONIC RESPIRATORY FAILURE, UNSP W HYPOXIA OR HYPERCAPNIA Qualifiers: (6) Functional quadriplegia Problems reviewed: Yes Code(s): R53.2 - FUNCTIONAL QUADRIPLEGIA (7) Decubital ulcer Assessment/Plan: -Seen by Vascular surgery -s/p debridement Problems reviewed: Yes Code(s): L89.90 - PRESSURE ULCER OF UNSPECIFIED SITE, UNSPECIFIED STAGE (8) Severe malnutrition Code(s): E43 - UNSPECIFIED SEVERE PROTEIN-CALORIE MALNUTRITION Assessment/Plan See problem list
[2019-12-11] MEDS: AMINO ACIDS/PROTEIN HYDROLYS 30 ML LIQUID.PKT PO SCH (10:55)
[2019-12-11] MEDS: MULTIVIT-MINERALS ORAL LIQUID PO SCH (10:55)
[2019-12-11] MEDS: TRIAMCINOLONE ACET 0.5% OINT 15 GM TUBE TP SCH ×2 (10:55→23:43)
[2019-12-11] MEDS: FERROUS SO4 300 MG/5 ML ORAL SOLN UNIT DOSE CUPS GT SCH (10:57)
[2019-12-11] MEDS: ASCORBIC ACID 500 MG TABLET (FP) PO SCH ×2 (10:57→23:44)
[2019-12-11] MEDS: PANTOPRAZOLE SODIUM 40 MG VIAL IVPUSH SCH (10:57)
[2019-12-11] MEDS: HEPARIN NA (PORCINE) 5,000 UNITS/ML 1ML VIAL SQ SCH ×2 (10:58→23:43)
[2019-12-11] MEDS: COLLAGENASE CLOSTRIDIUM HIST. 30 GRAMS TUBE TP SCH (10:58)
[2019-12-11 11:18] LABS: BASO % 0.4 % (0-2.0); EOS % 2.2 % (0-4.5); HEMATOCRIT 25.2 % (35.4-49); HEMOGLOBIN 8.1 GM/dL (11.7-16.9); LYMPH % 7.4 % (8-40); MCH 28.4 pg (25.7-33.7); MCHC 32.1 g/dl (32.0-35.9); MEAN CELL VOLUME 88.7 fl (80-96); MEAN PLT VOLUME 6.6 fl (7.5-11.1); MONO % 6.6 % (3.8-10.2); NEUT % 83.4 % (42.8-82.8); PLATELET COUNT 711 K/MM3 (134-434); RBC 2.84 M/mm3 (4.00-5.60); RDW 16.8 % (11.9-15.9); WHITE BLOOD COUNT 16.2 K/mm3 (4.0-10.0)
--- NOTE | 2019-12-11 11:37 | PN ---
Progress Note (short form) - Note Progress Note: Pulmonary No change Remains poorly responsive on vent support Had debridement of sacral decubiti/right hip ulcer VSS/Afebrile/Spo2 99% 12/400/50/5 AC mode Constitutional: Yes: Cachectic, Other (poorly responsive) Eyes: Yes: WNL HENT: Yes: WNL Neck: Yes: Supple (trach) Cardiovascular: Yes: Regular Rate and Rhythm, S1, S2 Respiratory: Yes: Rhonchi (few scatttered rhonchi) Gastrointestinal: Yes: Normal Bowel Sounds, Soft Extremities: Yes: Other (contracted) Labs: reviewed images noted (1) Lactic acidosis Code(s): E87.2 - ACIDOSIS (2) Pneumonia Code(s): J18.9 - PNEUMONIA, UNSPECIFIED ORGANISM (3) Sepsis Code(s): A41.9 - SEPSIS, UNSPECIFIED ORGANISM (4) Anemia Code(s): D64.9 - ANEMIA, UNSPECIFIED Qualifiers: (5) COPD (chronic obstructive pulmonary disease) Code(s): J44.9 - CHRONIC OBSTRUCTIVE PULMONARY DISEASE, UNSPECIFIED Qualifiers: (6) Cerebral palsy Code(s): G80.9 - CEREBRAL PALSY, UNSPECIFIED Qualifiers: (7) Chronic respiratory failure Code(s): J96.10 - CHRONIC RESPIRATORY FAILURE, UNSP W HYPOXIA OR HYPERCAPNIA Qualifiers: (8) Decubital ulcer Code(s): L89.90 - PRESSURE ULCER OF UNSPECIFIED SITE, UNSPECIFIED STAGE (9) Parkinson disease Code(s): G20 - PARKINSON'S DISEASE (10) Severe malnutrition Code(s): E43 - UNSPECIFIED SEVERE PROTEIN-CALORIE MALNUTRITION ASSESSMENT AND PLAN: Pneumonia Infected Decubitus Ulcers h/o C diff colitis Severe Sepsis Lactic Acidosis Chronic Respiratory Failure Cerebral Palsy Parkinsons Anemia - - IVF - monitor urine output, creatinine - wound care - continue volume assist control - poor candidate for weaning - enteral feeds - DVT/GI prophylaxis - f/u chest x-ray Justin Gomez MD -
[2019-12-11 11:46] LABS: ALBUMIN 0.8 g/dl (3.4-5.0); ALK PHOS 74 U/L (45-117); ANION GAP 4 MMOL/L (8-16); BILIRUBIN,TOTAL 0.4 mg/dL (0.2-1); BLOOD UREA NITROGEN 7.5 mg/dL (7-18); CALCIUM 8.9 mg/dL (8.5-10.1); CHLORIDE 114 mmol/L (98-107); CO2 26 mmol/L (21-32); CREATININE 0.4 mg/dL (0.55-1.3); GLUCOSE,RANDOM 91 mg/dL (74-106); MAGNESIUM 1.8 mg/dL (1.8-2.4); POTASSIUM 4.1 mmol/L (3.5-5.1); SGOT/AST 8 U/L (15-37); SGPT/ALT < 6 U/L (13-61); SODIUM 143 mmol/L (136-145); TOT PROT 5.3 g/dl (6.4-8.2)
--- NOTE | 2019-12-11 11:50 | PN ---
Progress Note (short form) - Note Progress Note: Anesthesiology post op check Patient non verbal, on ventilator through trach, no apparent adverse reaction to anesthetic, dept of anesthsiology will sign off care at this time
--- NOTE | 2019-12-11 14:48 | PN ---
Progress Note (short form) - Note Progress Note: resting comfortably trach to vent more alert today s/p debridement yesterday Vital Signs Period Temp Pulse Resp BP Sys/Gomez Pulse Ox Last 24 Hr 98.2 F-99.3 F 80-107 13-34 93-148/53-95 95-100 cor-rrr lungs decreased at bases abd soft,nt, less erythema ext contracted, multiple ulcers CBC, BMP 12/11/19 11:00 12/11/19 11:00 Microbiology 12/10/19 20:45 Stool Clostridioides difficile Antigen - Preliminary 12/10/19 20:45 Stool Clostridioides difficile Toxin Assay - Preliminary 12/07/19 18:20 Hip - Left Gram Stain - Final 12/07/19 18:20 Hip - Left Wound Culture - Preliminary Pseudomonas Aeruginosa Proteus Mirabilus - Esbl Produ Streptococcus Species#2 12/07/19 12:10 Sputum - Endotrachea Suction/Ventilator Gram Stain - Final 12/07/19 12:10 Sputum - Endotrachea Suction/Ventilator Sputum Culture - Preliminary Proteus Mirabilus - Esbl Produ Pseudomonas Aeruginosa Klebsiella Pneumoniae - Esbl 12/05/19 10:35 Blood - Peripheral Venous Blood Culture - Final NO GROWTH AFTER 5 DAYS INCUBATION 12/05/19 10:35 Blood - Peripheral Venous Blood Culture - Final NO GROWTH AFTER 5 DAYS INCUBATION 12/05/19 12:10 Urine - Urine Maravilla Urine Culture - Final Vr Ec Faecium a/p chronic resp failure trach to vent gt and jt contracted with multiple decubs sepsis cavitary pneumonia RUL, left lung pneumonia infected decubiti abdominal wall cellulitis history of cdiff on po vancomycin switch to meropenem to treat resistant pseudomonas in sputum as patient has ct scan findings of cavitary pneumonia continue po vancomycin for duration of broadspectrum antibiotics, then will need taper ISOLATE vre isolation- no need to treat urine isolate-continue isolation overall prognosis is poor
--- NOTE | 2019-12-11 16:42 | PN ---
Progress Note, Physician Chief Complaint: Fever History of Present Illness: Seen and examined at the bedside on vent via trach s/p Debridement of sacral wound yesterday no overnight events - Current Medication List Current Medications: Active Medications Albuterol/Ipratropium (Duoneb -) 1 amp NEB RTID [facility] Last Admin: 12/11/19 15:00 Dose: 1 amp Documented by: Amino Acids (Prosource No Carb Liquid Pkt) 30 ml PO DAILY@0800 [facility] Last Admin: 12/11/19 10:55 Dose: 30 ml Documented by: Ascorbic Acid (Vitamin C -) 500 mg PO BID [facility] Last Admin: 12/11/19 10:57 Dose: 500 mg Documented by: Collagenase (Santyl -) 1 applic TP DAILY [facility]; Protocol Last Admin: 12/11/19 10:58 Dose: 1 applic Documented by: Ferrous Sulfate (Feosol) 300 mg GT DAILY [facility] Last Admin: 12/11/19 10:57 Dose: 300 mg Documented by: Heparin Sodium (Porcine) (Heparin -) 5,000 unit SQ BID [facility] Last Admin: 12/11/19 10:58 Dose: 5,000 unit Documented by: Dextrose/Sodium Chloride (D5-1/2ns+40 Meq Kcl -) 40 meq in 1,000 mls @ 75 mls/hr IV ASDIR [facility] Last Admin: 12/10/19 23:51 Dose: Not Given Documented by: Meropenem 1 gm/ Dextrose 100 mls @ 200 mls/hr IVPB Q8H-IV [facility] Morphine Sulfate (Morphine Sulfate) 2 mg IVPUSH Q6H PRN PRN Reason: PAIN LEVEL 7 - 10 Last Admin: 12/10/19 23:56 Dose: 2 mg Documented by: Multivitamins/Minerals (Certavite-Antioxidant Liquid) 15 ml PO DAILY [facility] Last Admin: 12/11/19 10:55 Dose: 15 ml Documented by: Pantoprazole Sodium (Protonix Iv) 40 mg IVPUSH DAILY [facility] Last Admin: 12/11/19 10:57 Dose: 40 mg Documented by: Triamcinolone Acetonide (Aristocort 0.5% Ointment -) 1 applic TP BID [facility] Last Admin: 12/11/19 10:55 Dose: 1 applic Documented by: Vancomycin HCl (Vancomycin Oral Solution) 125 mg PO Q6HPO [facility] Last Admin: 12/11/19 13:36 Dose: 125 mg Documented by: - Objective Vital Signs: Vital Signs Temperature 98.5 F 12/11/19 13:00 Pulse Rate 87 12/11/19 15:24 Respiratory Rate 17 12/11/19 15:24 Blood Pressure 136/62 12/11/19 13:00 O2 Sat by Pulse Oximetry (%) 99 12/11/19 15:24 Constitutional: Yes: Well Nourished, No Distress Neck: Yes: Supple Cardiovascular: Yes: Regular Rate and Rhythm Respiratory: Yes: Mechanically Ventilated Extremities: No: Cyanosis Edema: No Labs: CBC, BMP 12/11/19 11:00 12/11/19 11:00 INR, PTT INR 1.73 (0.83-1.09) H 12/09/19 12:34 Assessment/Plan 69 y/o man with functional quadraplegia, cerebral palsy, parkinsons, chronic trach/JT with recurrent volvulous presents with fever, purulent drainage from multiple decubitus ulcers on sacrum and hips and noted to have NOAH 1. Acute kidney injury now improved 2. Sepsis/PNA/Infected Decubitus ulcers 3. Acute on chronic anemia 4. Metabolic acidosis 5. Chronic respiratory failure Renal function stable Serum potassium improved s/p supplementation yesterday can d/c IVF, restarted on tube feeds Continue antibiotics as per ID Vent support via trach overall prognosis is poor will follow up as needed Thank you Mat Julian DO
[2019-12-11] MEDS ORDERED: DEXTROSE 5%-WATER 100 ML IVPB ONE (19:35)
[2019-12-11] MEDS ORDERED: MEROPENEM 1 GM VIAL (RESTRICTED TO ID) IVPB ONE (19:35)
[2019-12-11] MEDS: MEROPENEM 1 GM in DEXTROSE 5%-WATER 100 ML IVPB SCH (19:38)
[2019-12-12] MEDS: ACETAMINOPHEN 1000 MG/100 ML VIAL (NON FORMULARY) IVPB PRN ×2 (01:10→21:55)
[2019-12-12] MEDS ORDERED: DEXTROSE 5%-WATER 100 ML IVPB ONE ×3 (01:31→17:25)
[2019-12-12] MEDS ORDERED: MEROPENEM 1 GM VIAL (RESTRICTED TO ID) IVPB ONE ×4 (01:31→17:24)
[2019-12-12] MEDS: MEROPENEM 1 GM in DEXTROSE 5%-WATER 100 ML IVPB SCH ×3 (02:01→17:30)
[2019-12-12] MEDS: VANCOMYCIN 250 MG/5 ML ORAL SOLUTION PO SCH ×4 (06:24→23:57)
[2019-12-12] MEDS: ALBUTEROL SO4 2.5/IPRATROPIUM 0.5 INH SOL 3 ML VIAL.NEB. NEB SCH ×3 (08:19→20:50)
[2019-12-12 09:36] LABS: BASO % 0.4 % (0-2.0); EOS % 3.3 % (0-4.5); HEMATOCRIT 25.6 % (35.4-49); HEMOGLOBIN 8.2 GM/dL (11.7-16.9); LYMPH % 10.3 % (8-40); MCH 29.3 pg (25.7-33.7); MCHC 32.2 g/dl (32.0-35.9); MEAN CELL VOLUME 90.9 fl (80-96); MEAN PLT VOLUME 6.8 fl (7.5-11.1); MONO % 6.4 % (3.8-10.2); NEUT % 79.6 % (42.8-82.8); PLATELET COUNT 670 K/MM3 (134-434); RBC 2.81 M/mm3 (4.00-5.60); RDW 17.4 % (11.9-15.9); WHITE BLOOD COUNT 13.8 K/mm3 (4.0-10.0)
[2019-12-12 10:07] LABS: ALBUMIN 0.8 g/dl (3.4-5.0); ALK PHOS 92 U/L (45-117); ANION GAP 2 MMOL/L (8-16); BILIRUBIN,TOTAL 0.3 mg/dL (0.2-1); CHLORIDE 113 mmol/L (98-107); CO2 27 mmol/L (21-32); CREATININE 0.4 mg/dL (0.55-1.3); GLUCOSE,RANDOM 99 mg/dL (74-106); SGOT/AST 12 U/L (15-37); SGPT/ALT < 6 U/L (13-61); SODIUM 142 mmol/L (136-145); TOT PROT 5.6 g/dl (6.4-8.2)
[2019-12-12] MEDS: HEPARIN NA (PORCINE) 5,000 UNITS/ML 1ML VIAL SQ SCH ×2 (10:36→21:55)
[2019-12-12] MEDS: PANTOPRAZOLE SODIUM 40 MG VIAL IVPUSH SCH (10:36)
[2019-12-12] MEDS: ASCORBIC ACID 500 MG TABLET (FP) PO SCH ×2 (10:36→21:55)
[2019-12-12] MEDS: MULTIVIT-MINERALS ORAL LIQUID PO SCH (10:36)
[2019-12-12] MEDS: AMINO ACIDS/PROTEIN HYDROLYS 30 ML LIQUID.PKT PO SCH (10:36)
[2019-12-12] MEDS: FERROUS SO4 300 MG/5 ML ORAL SOLN UNIT DOSE CUPS GT SCH (10:36)
[2019-12-12] MEDS: TRIAMCINOLONE ACET 0.5% OINT 15 GM TUBE TP SCH ×2 (10:37→21:54)
--- NOTE | 2019-12-12 12:57 | PN ---
Progress Note (short form) - Note Progress Note: PULMONARY Vented, awake. Low grade fevers overnight. Vital Signs Period Temp Pulse Resp BP Sys/Gomez Pulse Ox Last 24 Hr 98.2 F-100.6 F 58-106 16-28 111-136/55-68 92-99 Gen: vented, awake Heart: RRR Lung: scattered rhonchi Abd: soft, nontender Ext: contracted, no edema CBC, BMP 12/12/19 09:05 12/12/19 09:05 Active Medications Acetaminophen (Ofirmev Injection -) 650 mg IVPB Q6H PRN PRN Reason: FEVER Stop: 12/13/19 00:50 Last Admin: 12/12/19 01:10 Dose: 650 mg Documented by: Albuterol/Ipratropium (Duoneb -) 1 amp NEB RTID [facility] Last Admin: 12/12/19 08:19 Dose: 1 amp Documented by: Amino Acids (Prosource No Carb Liquid Pkt) 30 ml PO DAILY@0800 [facility] Last Admin: 12/12/19 10:36 Dose: 30 ml Documented by: Ascorbic Acid (Vitamin C -) 500 mg PO BID [facility] Last Admin: 12/12/19 10:36 Dose: 500 mg Documented by: Collagenase (Santyl -) 1 applic TP DAILY [facility]; Protocol Last Admin: 12/11/19 10:58 Dose: 1 applic Documented by: Ferrous Sulfate (Feosol) 300 mg GT DAILY [facility] Last Admin: 12/12/19 10:36 Dose: 300 mg Documented by: Heparin Sodium (Porcine) (Heparin -) 5,000 unit SQ BID [facility] Last Admin: 12/12/19 10:36 Dose: 5,000 unit Documented by: Meropenem 1 gm/ Dextrose 100 mls @ 200 mls/hr IVPB Q8H-IV [facility] Last Admin: 12/12/19 10:37 Dose: 200 mls/hr Documented by: Morphine Sulfate (Morphine Sulfate) 2 mg IVPUSH Q6H PRN PRN Reason: PAIN LEVEL 7 - 10 Last Admin: 12/10/19 23:56 Dose: 2 mg Documented by: Multivitamins/Minerals (Certavite-Antioxidant Liquid) 15 ml PO DAILY [facility] Last Admin: 12/12/19 10:36 Dose: 15 ml Documented by: Pantoprazole Sodium (Protonix Iv) 40 mg IVPUSH DAILY [facility] Last Admin: 12/12/19 10:36 Dose: 40 mg Documented by: Triamcinolone Acetonide (Aristocort 0.5% Ointment -) 1 applic TP BID [facility] Last Admin: 12/12/19 10:37 Dose: 1 applic Documented by: Vancomycin HCl (Vancomycin Oral Solution) 125 mg PO Q6HPO [facility] Last Admin: 12/12/19 06:24 Dose: 125 mg Documented by: A/P Pneumonia Infected Decubitus Ulcers h/o C diff colitis Severe Sepsis Lactic Acidosis Chronic Respiratory Failure Cerebral Palsy Parkinsons Anemia - continue antibiotics - monitor urine output, creatinine - wound care - continue volume assist control - poor candidate for weaning - enteral feeds - DVT/GI prophylaxis
--- NOTE | 2019-12-12 13:20 | PN ---
Progress Note, Physician Chief Complaint: EVENTS AND NOTES REVIEWED IN [facility] - Current Medication List Current Medications: Active Medications Acetaminophen (Ofirmev Injection -) 650 mg IVPB Q6H PRN PRN Reason: FEVER Stop: 12/13/19 00:50 Last Admin: 12/12/19 01:10 Dose: 650 mg Documented by: Albuterol/Ipratropium (Duoneb -) 1 amp NEB RTID [facility] Last Admin: 12/12/19 08:19 Dose: 1 amp Documented by: Amino Acids (Prosource No Carb Liquid Pkt) 30 ml PO DAILY@0800 [facility] Last Admin: 12/12/19 10:36 Dose: 30 ml Documented by: Ascorbic Acid (Vitamin C -) 500 mg PO BID [facility] Last Admin: 12/12/19 10:36 Dose: 500 mg Documented by: Collagenase (Santyl -) 1 applic TP DAILY [facility]; Protocol Last Admin: 12/11/19 10:58 Dose: 1 applic Documented by: Ferrous Sulfate (Feosol) 300 mg GT DAILY [facility] Last Admin: 12/12/19 10:36 Dose: 300 mg Documented by: Heparin Sodium (Porcine) (Heparin -) 5,000 unit SQ BID [facility] Last Admin: 12/12/19 10:36 Dose: 5,000 unit Documented by: Meropenem 1 gm/ Dextrose 100 mls @ 200 mls/hr IVPB Q8H-IV [facility] Last Admin: 12/12/19 10:37 Dose: 200 mls/hr Documented by: Morphine Sulfate (Morphine Sulfate) 2 mg IVPUSH Q6H PRN PRN Reason: PAIN LEVEL 7 - 10 Last Admin: 12/10/19 23:56 Dose: 2 mg Documented by: Multivitamins/Minerals (Certavite-Antioxidant Liquid) 15 ml PO DAILY [facility] Last Admin: 12/12/19 10:36 Dose: 15 ml Documented by: Pantoprazole Sodium (Protonix Iv) 40 mg IVPUSH DAILY [facility] Last Admin: 12/12/19 10:36 Dose: 40 mg Documented by: Triamcinolone Acetonide (Aristocort 0.5% Ointment -) 1 applic TP BID [facility] Last Admin: 12/12/19 10:37 Dose: 1 applic Documented by: Vancomycin HCl (Vancomycin Oral Solution) 125 mg PO Q6HPO [facility] Last Admin: 12/12/19 06:24 Dose: 125 mg Documented by: - Objective Vital Signs: Vital Signs Temperature 98.2 F 12/12/19 10:46 Pulse Rate 91 H 12/12/19 10:46 Respiratory Rate 17 12/12/19 12:15 Blood Pressure 117/66 12/12/19 10:46 O2 Sat by Pulse Oximetry (%) 98 12/12/19 12:15 Constitutional: Yes: Mild Distress Cardiovascular: Yes: Pulse Irregular Respiratory: Yes: Diminished, Mechanically Ventilated Gastrointestinal: Yes: Soft Genitourinary: Yes: Maravilla Present Musculoskeletal: Yes: Muscle Weakness Integumentary: Yes: Pressure Ulcer Wound/Incision: Yes: Dressing Dry and Intact (SACRAL/BUTTOCK) Labs: CBC, BMP 12/12/19 09:05 12/12/19 09:05 INR, PTT INR 1.73 (0.83-1.09) H 12/09/19 12:34 Problem List - Problems (1) Lactic acidosis Code(s): E87.2 - ACIDOSIS (2) Severe sepsis Code(s): A41.9 - SEPSIS, UNSPECIFIED ORGANISM; R65.20 - SEVERE SEPSIS WITHOUT SEPTIC SHOCK (3) Anemia Code(s): D64.9 - ANEMIA, UNSPECIFIED Qualifiers: (4) Back wound Code(s): S21.209A - UNSP OPN WND UNSP BK WL OF THORAX W/O PENET THOR CAV, INIT (5) COPD (chronic obstructive pulmonary disease) Code(s): J44.9 - CHRONIC OBSTRUCTIVE PULMONARY DISEASE, UNSPECIFIED Qualifiers: (6) Cerebral palsy Code(s): G80.9 - CEREBRAL PALSY, UNSPECIFIED Qualifiers: (7) Chronic respiratory failure Code(s): J96.10 - CHRONIC RESPIRATORY FAILURE, UNSP W HYPOXIA OR HYPERCAPNIA Qualifiers: (8) Pleural effusion Code(s): J90 - PLEURAL EFFUSION, NOT ELSEWHERE CLASSIFIED (9) Pneumonia Code(s): J18.9 - PNEUMONIA, UNSPECIFIED ORGANISM (10) Pressure ulcer of back Code(s): L89.109 - PRESSURE ULCER OF UNSP PART OF BACK, UNSPECIFIED STAGE Qualifiers: Pressure injury stage: stage 3 Qualified Code(s): L89.103 - Pressure ulcer of unspecified part of back, stage 3 (11) Seizure disorder Code(s): G40.909 - EPILEPSY, UNSP, NOT INTRACTABLE, WITHOUT STATUS EPILEPTICUS (12) Severe malnutrition Code(s): E43 - UNSPECIFIED SEVERE PROTEIN-CALORIE MALNUTRITION Assessment/Plan TRANSFUSE PRBC NOW FOR LOW H/H POOR CANDIDATE AT THIS TIME FOR VENT WEANING ID CONSULT FOR ABX PNA/WOUND ULCERS APPRECIATED SURGICAL EVAL FOR WOUND DEBRIDEMENT APPRECIATED S/P DEBRIDEMENT IN THE O.R. OPTIMIZE NUTRITION FOR WOUND HEALING FULL CODE STATUS GOALS OF CARE NEED TO BE REVIEWED WITH HCP POOR OVERALL QUALITY OF LIFE
[2019-12-12] MEDS: COLLAGENASE CLOSTRIDIUM HIST. 30 GRAMS TUBE TP SCH (14:51)
[2019-12-13] MEDS ORDERED: MEROPENEM 1 GM VIAL (RESTRICTED TO ID) IVPB ONE ×3 (00:53→17:53)
[2019-12-13] MEDS ORDERED: DEXTROSE 5%-WATER 100 ML IVPB ONE ×3 (00:53→17:53)
[2019-12-13] MEDS: MEROPENEM 1 GM in DEXTROSE 5%-WATER 100 ML IVPB SCH ×3 (02:06→18:21)
[2019-12-13] MEDS: VANCOMYCIN 250 MG/5 ML ORAL SOLUTION PO SCH ×4 (05:27→23:45)
[2019-12-13] MEDS: MORPHINE SULFATE 2 MG/ML VIAL IVPUSH PRN (08:03)
--- NOTE | 2019-12-13 08:04 | PN ---
Progress Note, Physician Chief Complaint: discussed with nurse patient is in distress poor quality of life in bed with skin ulcers.feeding tubes g and j - Current Medication List Current Medications: Active Medications Albuterol/Ipratropium (Duoneb -) 1 amp NEB RTID [facility] Last Admin: 12/12/19 20:50 Dose: 1 amp Documented by: Amino Acids (Prosource No Carb Liquid Pkt) 30 ml PO DAILY@0800 [facility] Last Admin: 12/12/19 10:36 Dose: 30 ml Documented by: Ascorbic Acid (Vitamin C -) 500 mg PO BID [facility] Last Admin: 12/12/19 21:55 Dose: 500 mg Documented by: Collagenase (Santyl -) 1 applic TP DAILY [facility]; Protocol Last Admin: 12/12/19 14:51 Dose: 1 applic Documented by: Ferrous Sulfate (Feosol) 300 mg GT DAILY [facility] Last Admin: 12/12/19 10:36 Dose: 300 mg Documented by: Heparin Sodium (Porcine) (Heparin -) 5,000 unit SQ BID [facility] Last Admin: 12/12/19 21:55 Dose: 5,000 unit Documented by: Meropenem 1 gm/ Dextrose 100 mls @ 200 mls/hr IVPB Q8H-IV [facility] Last Admin: 12/13/19 02:06 Dose: 200 mls/hr Documented by: Morphine Sulfate (Morphine Sulfate) 2 mg IVPUSH Q6H PRN PRN Reason: PAIN LEVEL 7 - 10 Last Admin: 12/10/19 23:56 Dose: 2 mg Documented by: Multivitamins/Minerals (Certavite-Antioxidant Liquid) 15 ml PO DAILY [facility] Last Admin: 12/12/19 10:36 Dose: 15 ml Documented by: Pantoprazole Sodium (Protonix Iv) 40 mg IVPUSH DAILY [facility] Last Admin: 12/12/19 10:36 Dose: 40 mg Documented by: Triamcinolone Acetonide (Aristocort 0.5% Ointment -) 1 applic TP BID [facility] Last Admin: 12/12/19 21:54 Dose: 1 applic Documented by: Vancomycin HCl (Vancomycin Oral Solution) 125 mg PO Q6HPO [facility] Last Admin: 12/13/19 05:27 Dose: 125 mg Documented by: - Objective Vital Signs: Vital Signs Temperature 98.4 F 12/13/19 06:00 Pulse Rate 112 H 12/13/19 06:00 Respiratory Rate 24 H 12/13/19 06:00 Blood Pressure 126/85 12/13/19 06:00 O2 Sat by Pulse Oximetry (%) 99 12/13/19 06:00 Constitutional: Yes: Moderate Distress Cardiovascular: Yes: Tachycardia Respiratory: Yes: Mechanically Ventilated (trachchollar) Gastrointestinal: Yes: Soft Genitourinary: Yes: Maravilla Present Musculoskeletal: Yes: Muscle Weakness Integumentary: Yes: Pressure Ulcer Wound/Incision: Yes: Dressing Dry and Intact Neurological: Yes: Weakness, Other Labs: CBC, BMP 12/12/19 09:05 12/12/19 09:05 INR, PTT INR 1.73 (0.83-1.09) H 12/09/19 12:34 Problem List - Problems (1) Lactic acidosis Code(s): E87.2 - ACIDOSIS (2) Severe sepsis Code(s): A41.9 - SEPSIS, UNSPECIFIED ORGANISM; R65.20 - SEVERE SEPSIS WITHOUT SEPTIC SHOCK (3) Anemia Code(s): D64.9 - ANEMIA, UNSPECIFIED Qualifiers: (4) Back wound Code(s): S21.209A - UNSP OPN WND UNSP BK WL OF THORAX W/O PENET THOR CAV, INIT (5) COPD (chronic obstructive pulmonary disease) Code(s): J44.9 - CHRONIC OBSTRUCTIVE PULMONARY DISEASE, UNSPECIFIED Qualifiers: (6) Cerebral palsy Code(s): G80.9 - CEREBRAL PALSY, UNSPECIFIED Qualifiers: (7) Chronic respiratory failure Code(s): J96.10 - CHRONIC RESPIRATORY FAILURE, UNSP W HYPOXIA OR HYPERCAPNIA Qualifiers: (8) Pleural effusion Code(s): J90 - PLEURAL EFFUSION, NOT ELSEWHERE CLASSIFIED (9) Pneumonia Code(s): J18.9 - PNEUMONIA, UNSPECIFIED ORGANISM (10) Pressure ulcer of back Code(s): L89.109 - PRESSURE ULCER OF UNSP PART OF BACK, UNSPECIFIED STAGE Qualifiers: Pressure injury stage: stage 3 Qualified Code(s): L89.103 - Pressure ulcer of unspecified part of back, stage 3 (11) Seizure disorder Code(s): G40.909 - EPILEPSY, UNSP, NOT INTRACTABLE, WITHOUT STATUS EPILEPTICUS (12) Severe malnutrition Code(s): E43 - UNSPECIFIED SEVERE PROTEIN-CALORIE MALNUTRITION Assessment/Plan TRANSFUSE PRBC NOW FOR LOW H/H POOR CANDIDATE AT THIS TIME FOR VENT WEANING ID CONSULT FOR ABX PNA/WOUND ULCERS APPRECIATED SURGICAL EVAL FOR WOUND DEBRIDEMENT APPRECIATED S/P DEBRIDEMENT IN THE O.R. OPTIMIZE NUTRITION FOR WOUND HEALING FULL CODE STATUS GOALS OF CARE NEED TO BE REVIEWED WITH HCP POOR OVERALL QUALITY OF LIFE MORPHINE PRN
[2019-12-13] MEDS: ALBUTEROL SO4 2.5/IPRATROPIUM 0.5 INH SOL 3 ML VIAL.NEB. NEB SCH ×3 (08:24→21:00)
[2019-12-13] MEDS: AMINO ACIDS/PROTEIN HYDROLYS 30 ML LIQUID.PKT PO SCH (08:48)
[2019-12-13 08:59] LABS: BASO % 0.2 % (0-2.0); EOS % 0.8 % (0-4.5); HEMATOCRIT 30.8 % (35.4-49); HEMOGLOBIN 9.9 GM/dL (11.7-16.9); LYMPH % 7.5 % (8-40); MCHC 32.1 g/dl (32.0-35.9); MEAN CELL VOLUME 90.3 fl (80-96); MEAN PLT VOLUME 7.2 fl (7.5-11.1); MONO % 5.2 % (3.8-10.2); NEUT % 86.3 % (42.8-82.8); PLATELET COUNT 771 K/MM3 (134-434); RBC 3.42 M/mm3 (4.00-5.60); RDW 17.7 % (11.9-15.9); WHITE BLOOD COUNT 19.9 K/mm3 (4.0-10.0)
[2019-12-13 09:25] LABS: BILIRUBIN,TOTAL 0.3 mg/dL (0.2-1); BLOOD UREA NITROGEN 13.6 mg/dL (7-18); CALCIUM 9.1 mg/dL (8.5-10.1); CREATININE 0.5 mg/dL (0.55-1.3); POTASSIUM 4.3 mmol/L (3.5-5.1); TOT PROT 6.7 g/dl (6.4-8.2)
[2019-12-13] MEDS ORDERED: PT OWN MED DRAWER 7, Y5N ONE ×2 (10:26→17:59)
[2019-12-13] MEDS: FERROUS SO4 300 MG/5 ML ORAL SOLN UNIT DOSE CUPS GT SCH (10:37)
[2019-12-13] MEDS: ASCORBIC ACID 500 MG TABLET (FP) PO SCH ×2 (10:37→21:56)
[2019-12-13] MEDS: MULTIVIT-MINERALS ORAL LIQUID PO SCH (10:37)
[2019-12-13] MEDS: PANTOPRAZOLE SODIUM 40 MG VIAL IVPUSH SCH (10:37)
[2019-12-13] MEDS: HEPARIN NA (PORCINE) 5,000 UNITS/ML 1ML VIAL SQ SCH ×2 (10:40→21:56)
[2019-12-13] MEDS: COLLAGENASE CLOSTRIDIUM HIST. 30 GRAMS TUBE TP SCH (10:40)
[2019-12-13] MEDS: TRIAMCINOLONE ACET 0.5% OINT 15 GM TUBE TP SCH ×2 (10:40→21:55)
--- NOTE | 2019-12-13 11:58 | PN ---
Progress Note (short form) - Note Progress Note: PULMONARY Vented, awake. Febrile overnight. Vital Signs Period Temp Pulse Resp BP Sys/Gomez Pulse Ox Last 24 Hr 97.7 F-101 F 93-114 15-24 112-131/55-87 97-100 Gen: vented, awake Heart: RRR Lung: scattered rhonchi Abd: soft, nontender Ext: contracted, no edema CBC, BMP 12/13/19 08:20 12/13/19 08:20 Active Medications Albuterol/Ipratropium (Duoneb -) 1 amp NEB RTID [facility] Last Admin: 12/13/19 08:24 Dose: 1 amp Documented by: Amino Acids (Prosource No Carb Liquid Pkt) 30 ml PO DAILY@0800 [facility] Last Admin: 12/13/19 08:48 Dose: Not Given Documented by: Ascorbic Acid (Vitamin C -) 500 mg PO BID [facility] Last Admin: 12/13/19 10:37 Dose: 500 mg Documented by: Collagenase (Santyl -) 1 applic TP DAILY [facility]; Protocol Last Admin: 12/13/19 10:40 Dose: 1 applic Documented by: Ferrous Sulfate (Feosol) 300 mg GT DAILY [facility] Last Admin: 12/13/19 10:37 Dose: 300 mg Documented by: Heparin Sodium (Porcine) (Heparin -) 5,000 unit SQ BID [facility] Last Admin: 12/13/19 10:40 Dose: 5,000 unit Documented by: Meropenem 1 gm/ Dextrose 100 mls @ 200 mls/hr IVPB Q8H-IV [facility] Last Admin: 12/13/19 10:35 Dose: 200 mls/hr Documented by: Morphine Sulfate (Morphine Sulfate) 2 mg IVPUSH Q6H PRN PRN Reason: PAIN LEVEL 7 - 10 Last Admin: 12/13/19 08:03 Dose: 2 mg Documented by: Multivitamins/Minerals (Certavite-Antioxidant Liquid) 15 ml PO DAILY [facility] Last Admin: 12/13/19 10:37 Dose: 15 ml Documented by: Pantoprazole Sodium (Protonix Iv) 40 mg IVPUSH DAILY [facility] Last Admin: 12/13/19 10:37 Dose: 40 mg Documented by: Triamcinolone Acetonide (Aristocort 0.5% Ointment -) 1 applic TP BID [facility] Last Admin: 12/13/19 10:40 Dose: 1 applic Documented by: Vancomycin HCl (Vancomycin Oral Solution) 125 mg PO Q6HPO [facility] Last Admin: 12/13/19 05:27 Dose: 125 mg Documented by: A/P Pneumonia Infected Decubitus Ulcers h/o C diff colitis Severe Sepsis Lactic Acidosis Chronic Respiratory Failure Cerebral Palsy Parkinsons Anemia - continue antibiotics - monitor urine output, creatinine - wound care - continue volume assist control - poor candidate for weaning - enteral feeds - DVT/GI prophylaxis - recommend palliative/hospice care as pt appears to be suffering
[2019-12-14] MEDS ORDERED: DEXTROSE 5%-WATER 100 ML IVPB ONE ×2 (00:23→10:36)
[2019-12-14] MEDS ORDERED: MEROPENEM 1 GM VIAL (RESTRICTED TO ID) IVPB ONE ×2 (00:23→10:35)
[2019-12-14] MEDS: MEROPENEM 1 GM in DEXTROSE 5%-WATER 100 ML IVPB SCH ×3 (02:04→23:14)
[2019-12-14] MEDS: VANCOMYCIN 250 MG/5 ML ORAL SOLUTION PO SCH ×3 (06:36→18:08)
--- NOTE | 2019-12-14 07:50 | PN ---
Progress Note, Physician - Current Medication List Current Medications: Active Medications Albuterol/Ipratropium (Duoneb -) 1 amp NEB RTID COUNTS INCLUDE 234 BEDS AT THE [facility] Last Admin: 12/13/19 21:00 Dose: 1 amp Documented by: Amino Acids (Prosource No Carb Liquid Pkt) 30 ml PO DAILY@0800 COUNTS INCLUDE 234 BEDS AT THE [facility] Last Admin: 12/13/19 08:48 Dose: Not Given Documented by: Ascorbic Acid (Vitamin C -) 500 mg PO BID COUNTS INCLUDE 234 BEDS AT THE [facility] Last Admin: 12/13/19 21:56 Dose: 500 mg Documented by: Collagenase (Santyl -) 1 applic TP DAILY COUNTS INCLUDE 234 BEDS AT THE [facility]; Protocol Last Admin: 12/13/19 10:40 Dose: 1 applic Documented by: Ferrous Sulfate (Feosol) 300 mg GT DAILY COUNTS INCLUDE 234 BEDS AT THE [facility] Last Admin: 12/13/19 10:37 Dose: 300 mg Documented by: Heparin Sodium (Porcine) (Heparin -) 5,000 unit SQ BID COUNTS INCLUDE 234 BEDS AT THE [facility] Last Admin: 12/13/19 21:56 Dose: 5,000 unit Documented by: Meropenem 1 gm/ Dextrose 100 mls @ 200 mls/hr IVPB Q8H-IV COUNTS INCLUDE 234 BEDS AT THE [facility] Last Admin: 12/14/19 02:04 Dose: 200 mls/hr Documented by: Morphine Sulfate (Morphine Sulfate) 2 mg IVPUSH Q6H PRN PRN Reason: PAIN LEVEL 7 - 10 Last Admin: 12/13/19 08:03 Dose: 2 mg Documented by: Multivitamins/Minerals (Certavite-Antioxidant Liquid) 15 ml PO DAILY COUNTS INCLUDE 234 BEDS AT THE [facility] Last Admin: 12/13/19 10:37 Dose: 15 ml Documented by: Pantoprazole Sodium (Protonix Iv) 40 mg IVPUSH DAILY COUNTS INCLUDE 234 BEDS AT THE [facility] Last Admin: 12/13/19 10:37 Dose: 40 mg Documented by: Triamcinolone Acetonide (Aristocort 0.5% Ointment -) 1 applic TP BID COUNTS INCLUDE 234 BEDS AT THE [facility] Last Admin: 12/13/19 21:55 Dose: 1 applic Documented by: Vancomycin HCl (Vancomycin Oral Solution) 125 mg PO Q6HPO COUNTS INCLUDE 234 BEDS AT THE [facility] Last Admin: 12/14/19 06:36 Dose: 125 mg Documented by: - Objective Vital Signs: Vital Signs Temperature 99.0 F 12/14/19 06:00 Pulse Rate 96 H 12/14/19 06:00 Respiratory Rate 20 12/14/19 06:00 Blood Pressure 115/67 12/14/19 06:00 O2 Sat by Pulse Oximetry (%) 98 12/14/19 06:00 Labs: CBC, BMP 12/13/19 08:20 12/13/19 08:20 INR, PTT INR 1.73 (0.83-1.09) H 12/09/19 12:34 Problem List - Problems (1) Lactic acidosis Code(s): E87.2 - ACIDOSIS (2) Pneumonia Code(s): J18.9 - PNEUMONIA, UNSPECIFIED ORGANISM (3) Sepsis Code(s): A41.9 - SEPSIS, UNSPECIFIED ORGANISM (4) Anemia Code(s): D64.9 - ANEMIA, UNSPECIFIED Qualifiers: (5) COPD (chronic obstructive pulmonary disease) Code(s): J44.9 - CHRONIC OBSTRUCTIVE PULMONARY DISEASE, UNSPECIFIED Qualifiers: (6) Cerebral palsy Code(s): G80.9 - CEREBRAL PALSY, UNSPECIFIED Qualifiers: (7) Chronic respiratory failure Code(s): J96.10 - CHRONIC RESPIRATORY FAILURE, UNSP W HYPOXIA OR HYPERCAPNIA Qualifiers: (8) Decubital ulcer Code(s): L89.90 - PRESSURE ULCER OF UNSPECIFIED SITE, UNSPECIFIED STAGE (9) Parkinson disease Code(s): G20 - PARKINSON'S DISEASE (10) Severe malnutrition Code(s): E43 - UNSPECIFIED SEVERE PROTEIN-CALORIE MALNUTRITION Assessment/Plan ASSESSMENT AND PLAN: Pneumonia Infected Decubitus Ulcers h/o C diff colitis Severe Sepsis Lactic Acidosis Chronic Respiratory Failure Cerebral Palsy Parkinsons Anemia - - IVF - monitor urine output, creatinine - wound care - continue volume assist control - poor candidate for weaning - enteral feeds - DVT/GI prophylaxis - f/u chest x-ray - DR HERNANDEZ
[2019-12-14] MEDS: ALBUTEROL SO4 2.5/IPRATROPIUM 0.5 INH SOL 3 ML VIAL.NEB. NEB SCH ×3 (08:15→20:58)
[2019-12-14] MEDS: AMINO ACIDS/PROTEIN HYDROLYS 30 ML LIQUID.PKT PO SCH (08:42)
[2019-12-14 08:52] LABS: HEMOGLOBIN 7.4 GM/dL (11.7-16.9); MCH 28.9 pg (25.7-33.7); MCHC 32.2 g/dl (32.0-35.9); MEAN CELL VOLUME 89.7 fl (80-96); PLATELET COUNT 646 K/MM3 (134-434); RBC 2.57 M/mm3 (4.00-5.60); RDW 17.6 % (11.9-15.9); WHITE BLOOD COUNT 14.9 K/mm3 (4.0-10.0)
[2019-12-14 09:37] LABS: ALBUMIN 0.8 g/dl (3.4-5.0); ANION GAP 3 MMOL/L (8-16); BILIRUBIN,TOTAL 0.3 mg/dL (0.2-1); BLOOD UREA NITROGEN 14.3 mg/dL (7-18); CALCIUM 8.6 mg/dL (8.5-10.1); CHLORIDE 110 mmol/L (98-107); CO2 28 mmol/L (21-32); GLUCOSE,RANDOM 89 mg/dL (74-106); POTASSIUM 4.4 mmol/L (3.5-5.1); SGPT/ALT < 6 U/L (13-61); SODIUM 140 mmol/L (136-145); TOT PROT 5.6 g/dl (6.4-8.2)
[2019-12-14 09:38] LABS: ALK PHOS 91 U/L (45-117); CREATININE 0.3 mg/dL (0.55-1.3); SGOT/AST 13 U/L (15-37)
[2019-12-14] MEDS ORDERED: PT OWN MED DRAWER 7, Y5N ONE ×2 (10:38→18:59)
[2019-12-14] MEDS: MULTIVIT-MINERALS ORAL LIQUID PO SCH (10:43)
[2019-12-14] MEDS: TRIAMCINOLONE ACET 0.5% OINT 15 GM TUBE TP SCH ×2 (10:43→21:59)
[2019-12-14] MEDS: ASCORBIC ACID 500 MG TABLET (FP) PO SCH ×2 (10:44→21:59)
[2019-12-14] MEDS: HEPARIN NA (PORCINE) 5,000 UNITS/ML 1ML VIAL SQ SCH ×2 (10:44→21:59)
[2019-12-14] MEDS: FERROUS SO4 300 MG/5 ML ORAL SOLN UNIT DOSE CUPS GT SCH (10:44)
[2019-12-14] MEDS: PANTOPRAZOLE SODIUM 40 MG VIAL IVPUSH SCH (10:44)
[2019-12-14] MEDS: COLLAGENASE CLOSTRIDIUM HIST. 30 GRAMS TUBE TP SCH (10:44)
--- NOTE | 2019-12-14 11:30 | PN ---
Progress Note, Physician Chief Complaint: Pneumonia Chronic respiratory failure VRE Anemia Cachexia History of Present Illness: NAD [facility] vent Operative Date: 12/10/19 Pre-Operative Diagnosis: Right hip necrotic ulcer, sacral necrotic ulcer Operation: excisional debridement skin, subcutaneous tissue, muscle right hip. Excisional debridement skin, subcutaneous tissue sacrum. Post-Operative Diagnosis: Same as Pre-op Surgeon: Rich Madrid Anesthesia: MAC Estimated Blood Loss (mls): 30 Operative Report Dictated: Yes - Current Medication List Current Medications: Active Medications Albuterol/Ipratropium (Duoneb -) 1 amp NEB RTID [facility] Last Admin: 12/14/19 08:15 Dose: 1 amp Documented by: Amino Acids (Prosource No Carb Liquid Pkt) 30 ml PO DAILY@0800 [facility] Last Admin: 12/14/19 08:42 Dose: 30 ml Documented by: Ascorbic Acid (Vitamin C -) 500 mg PO BID [facility] Last Admin: 12/14/19 10:44 Dose: 500 mg Documented by: Collagenase (Santyl -) 1 applic TP DAILY [facility]; Protocol Last Admin: 12/14/19 10:44 Dose: 1 applic Documented by: Ferrous Sulfate (Feosol) 300 mg GT DAILY [facility] Last Admin: 12/14/19 10:44 Dose: 300 mg Documented by: Heparin Sodium (Porcine) (Heparin -) 5,000 unit SQ BID [facility] Last Admin: 12/14/19 10:44 Dose: 5,000 unit Documented by: Meropenem 1 gm/ Dextrose 100 mls @ 200 mls/hr IVPB Q8H-IV [facility] Last Admin: 12/14/19 10:43 Dose: 200 mls/hr Documented by: Morphine Sulfate (Morphine Sulfate) 2 mg IVPUSH Q6H PRN PRN Reason: PAIN LEVEL 7 - 10 Last Admin: 12/13/19 08:03 Dose: 2 mg Documented by: Multivitamins/Minerals (Certavite-Antioxidant Liquid) 15 ml PO DAILY [facility] Last Admin: 12/14/19 10:43 Dose: 15 ml Documented by: Pantoprazole Sodium (Protonix Iv) 40 mg IVPUSH DAILY [facility] Last Admin: 12/14/19 10:44 Dose: 40 mg Documented by: Triamcinolone Acetonide (Aristocort 0.5% Ointment -) 1 applic TP BID [facility] Last Admin: 12/14/19 10:43 Dose: 1 applic Documented by: Vancomycin HCl (Vancomycin Oral Solution) 125 mg PO Q6HPO [facility] Last Admin: 12/14/19 11:07 Dose: 125 mg Documented by: - Objective Vital Signs: Vital Signs Temperature 99.0 F 12/14/19 06:00 Pulse Rate 96 H 12/14/19 06:00 Respiratory Rate 21 H 12/14/19 08:15 Blood Pressure 115/67 12/14/19 06:00 O2 Sat by Pulse Oximetry (%) 97 12/14/19 08:15 Constitutional: Yes: No Distress, Calm, Cachectic Cardiovascular: Yes: Regular Rate and Rhythm Respiratory: Yes: Regular, Mechanically Ventilated, Rhonchi (diffuse) Gastrointestinal: Yes: Normal Bowel Sounds, Soft ...Rectal Exam: Yes: Other Musculoskeletal: Yes: Muscle Weakness Extremities: Yes: WNL Edema: No Peripheral Pulses WNL: Yes Neurological: Yes: Pre-Existing Deficit Labs: CBC, BMP 12/14/19 08:08 12/14/19 08:08 INR, PTT INR 1.73 (0.83-1.09) H 12/09/19 12:34 Problem List - Problems (1) Pneumonia Assessment/Plan: -Recurrent -2/2 to aspiration -IV abx -Pulmonary and ID consult -Mech vent -Instructed nursing staff to make sure HOB >45 degrees at all times Problems reviewed: Yes Code(s): J18.9 - PNEUMONIA, UNSPECIFIED ORGANISM (2) Sepsis Assessment/Plan: -resolved Problems reviewed: Yes Code(s): A41.9 - SEPSIS, UNSPECIFIED ORGANISM (3) Anemia Assessment/Plan: -Previously TAM -Continue feosol -Iron stores improved -Transfuse only if Hg<7.0 to avoid fluid overload Problems reviewed: Yes Code(s): D64.9 - ANEMIA, UNSPECIFIED Qualifiers: (4) Cerebral palsy Problems reviewed: Yes Code(s): G80.9 - CEREBRAL PALSY, UNSPECIFIED Qualifiers: (5) Chronic respiratory failure Assessment/Plan: -Mech vent -Pulmonary on board -Bronchodilators -Not a candidate for weaning at this time Problems reviewed: Yes Code(s): J96.10 - CHRONIC RESPIRATORY FAILURE, UNSP W HYPOXIA OR HYPERCAPNIA Qualifiers: (6) Functional quadriplegia Problems reviewed: Yes Code(s): R53.2 - FUNCTIONAL QUADRIPLEGIA (7) Decubital ulcer Assessment/Plan: -Seen by Vascular surgery -s/p debridement -IV abx -WBC improving Problems reviewed: Yes Code(s): L89.90 - PRESSURE ULCER OF UNSPECIFIED SITE, UNSPECIFIED STAGE (8) Severe malnutrition Assessment/Plan: -Prosource -Multivitamin -Vitamin C Problems reviewed: Yes Code(s): E43 - UNSPECIFIED SEVERE PROTEIN-CALORIE MALNUTRITION Assessment/Plan See problem list
--- NOTE | 2019-12-14 16:39 | PN ---
Progress Note, Physician History of Present Illness: PULMONARY NO CHANGE,POORLY RESPONSIVE ON VENT SUPPORT AC MODE - Current Medication List Current Medications: Active Medications Albuterol/Ipratropium (Duoneb -) 1 amp NEB RTID [facility] Last Admin: 12/14/19 14:40 Dose: 1 amp Documented by: Amino Acids (Prosource No Carb Liquid Pkt) 30 ml GT BID@0800,1730 [facility] Ascorbic Acid (Vitamin C -) 500 mg PO BID [facility] Last Admin: 12/14/19 10:44 Dose: 500 mg Documented by: Collagenase (Santyl -) 1 applic TP DAILY [facility]; Protocol Last Admin: 12/14/19 10:44 Dose: 1 applic Documented by: Ferrous Sulfate (Feosol) 300 mg GT DAILY [facility] Last Admin: 12/14/19 10:44 Dose: 300 mg Documented by: Heparin Sodium (Porcine) (Heparin -) 5,000 unit SQ BID [facility] Last Admin: 12/14/19 10:44 Dose: 5,000 unit Documented by: Meropenem 1 gm/ Dextrose 100 mls @ 200 mls/hr IVPB Q8H-IV [facility] Last Admin: 12/14/19 10:43 Dose: 200 mls/hr Documented by: Morphine Sulfate (Morphine Sulfate) 2 mg IVPUSH Q6H PRN PRN Reason: PAIN LEVEL 7 - 10 Last Admin: 12/13/19 08:03 Dose: 2 mg Documented by: Multivitamins/Minerals (Certavite-Antioxidant Liquid) 15 ml PO DAILY [facility] Last Admin: 12/14/19 10:43 Dose: 15 ml Documented by: Pantoprazole Sodium (Protonix Iv) 40 mg IVPUSH DAILY [facility] Last Admin: 12/14/19 10:44 Dose: 40 mg Documented by: Triamcinolone Acetonide (Aristocort 0.5% Ointment -) 1 applic TP BID [facility] Last Admin: 12/14/19 10:43 Dose: 1 applic Documented by: Vancomycin HCl (Vancomycin Oral Solution) 125 mg PO Q6HPO [facility] Last Admin: 12/14/19 11:07 Dose: 125 mg Documented by: - Objective Vital Signs: Vital Signs Temperature 99.3 F 12/14/19 14:26 Pulse Rate 100 H 12/14/19 14:26 Respiratory Rate 22 H 12/14/19 14:53 Blood Pressure 107/71 12/14/19 14:26 O2 Sat by Pulse Oximetry (%) 99 12/14/19 14:26 Constitutional: Yes: Thin, Other (POORLY RESPONSIVE) Eyes: Yes: WNL HENT: Yes: WNL Neck: Yes: Supple (TRACH) Cardiovascular: Yes: Regular Rate and Rhythm, S1, S2 Respiratory: Yes: Rhonchi (FEW RHONCHI) Gastrointestinal: Yes: Normal Bowel Sounds, Soft Extremities: Yes: Other (CONTRACTED) Edema: No Labs: CBC, BMP 12/14/19 08:08 12/14/19 08:08 INR, PTT INR 1.73 (0.83-1.09) H 12/09/19 12:34 Problem List - Problems (1) Lactic acidosis Code(s): E87.2 - ACIDOSIS (2) Pneumonia Code(s): J18.9 - PNEUMONIA, UNSPECIFIED ORGANISM (3) Sepsis Code(s): A41.9 - SEPSIS, UNSPECIFIED ORGANISM (4) Anemia Code(s): D64.9 - ANEMIA, UNSPECIFIED Qualifiers: (5) COPD (chronic obstructive pulmonary disease) Code(s): J44.9 - CHRONIC OBSTRUCTIVE PULMONARY DISEASE, UNSPECIFIED Qualifiers: (6) Cerebral palsy Code(s): G80.9 - CEREBRAL PALSY, UNSPECIFIED Qualifiers: (7) Chronic respiratory failure Code(s): J96.10 - CHRONIC RESPIRATORY FAILURE, UNSP W HYPOXIA OR HYPERCAPNIA Qualifiers: (8) Decubital ulcer Code(s): L89.90 - PRESSURE ULCER OF UNSPECIFIED SITE, UNSPECIFIED STAGE (9) Parkinson disease Code(s): G20 - PARKINSON'S DISEASE (10) Severe malnutrition Code(s): E43 - UNSPECIFIED SEVERE PROTEIN-CALORIE MALNUTRITION Assessment/Plan ASSESSMENT AND PLAN: Pneumonia Infected Decubitus Ulcers h/o C diff colitis Severe Sepsis Lactic Acidosis Chronic Respiratory Failure Cerebral Palsy Parkinsons Anemia - monitor urine output, creatinine - wound care - continue volume assist control - poor candidate for weaning - enteral feeds - DVT/GI prophylaxis - f/u chest x-rays - DR HERNANDEZ
--- NOTE | 2019-12-14 17:47 | PN ---
Progress Note (short form) - Note Progress Note: resting comfortably trach to vent Vital Signs Period Temp Pulse Resp BP Sys/Gomez Pulse Ox Last 24 Hr 96.9 F-99.3 F 90-100 18-24 103-132/46-85 97-99 trach to vent cor-rrr lungs sudhakar abd soft,nt ext contracted skin left flank with rash (new) extending to midline of back no rash on right flank a/p chronic resp failure trach to vent gt and jt contracted with multiple decubs sepsis cavitary pneumonia RUL, left lung pneumonia infected decubiti abdominal wall cellulitis history of cdiff on po vancomycin switch to meropenem to treat resistant pseudomonas in sputum as patient has ct scan findings of cavitary pneumonia continue po vancomycin for duration of broadspectrum antibiotics, then will need taper ISOLATE vre isolation- no need to treat urine isolate-continue isolation overall prognosis is poor ?zoster left flank- will add valtrex via gt consider placing picc line and treating care home (14 to 21 days) for cavitary pnemonia with meropenem will require po vancomycin for the duration of the BS abx and then a prolonged taper
[2019-12-14] MEDS: AMINO ACIDS/PROTEIN HYDROLYS 30 ML LIQUID.PKT GT SCH (18:07)
[2019-12-14] MEDS: valACYclovir HCL 500 MG TABLET (FP) GT SCH (21:59)
[2019-12-15] MEDS: VANCOMYCIN 250 MG/5 ML ORAL SOLUTION PO SCH ×4 (00:20→18:34)
[2019-12-15] MEDS: MEROPENEM 1 GM in DEXTROSE 5%-WATER 100 ML IVPB SCH ×3 (02:00→18:34)
[2019-12-15] MEDS: ALBUTEROL SO4 2.5/IPRATROPIUM 0.5 INH SOL 3 ML VIAL.NEB. NEB SCH ×2 (07:45→13:00)
--- NOTE | 2019-12-15 07:50 | PN ---
Progress Note, Physician History of Present Illness: PULMONARY NO CHANGE POORLY RESPONSIVE ON VENT SUPPORT AC MODE,-RESP DISTRESS - Current Medication List Current Medications: Active Medications Albuterol/Ipratropium (Duoneb -) 1 amp NEB RTID [facility] Last Admin: 12/14/19 20:58 Dose: 1 amp Documented by: Amino Acids (Prosource No Carb Liquid Pkt) 30 ml GT BID@0800,1730 [facility] Last Admin: 12/14/19 18:07 Dose: 30 ml Documented by: Ascorbic Acid (Vitamin C -) 500 mg PO BID [facility] Last Admin: 12/14/19 21:59 Dose: 500 mg Documented by: Collagenase (Santyl -) 1 applic TP DAILY [facility]; Protocol Last Admin: 12/14/19 10:44 Dose: 1 applic Documented by: Ferrous Sulfate (Feosol) 300 mg GT DAILY [facility] Last Admin: 12/14/19 10:44 Dose: 300 mg Documented by: Heparin Sodium (Porcine) (Heparin -) 5,000 unit SQ BID [facility] Last Admin: 12/14/19 21:59 Dose: 5,000 unit Documented by: Meropenem 1 gm/ Dextrose 100 mls @ 200 mls/hr IVPB Q8H-IV [facility] Last Admin: 12/15/19 02:00 Dose: Not Given Documented by: Morphine Sulfate (Morphine Sulfate) 2 mg IVPUSH Q6H PRN PRN Reason: PAIN LEVEL 7 - 10 Last Admin: 12/13/19 08:03 Dose: 2 mg Documented by: Multivitamins/Minerals (Certavite-Antioxidant Liquid) 15 ml PO DAILY [facility] Last Admin: 12/14/19 10:43 Dose: 15 ml Documented by: Pantoprazole Sodium (Protonix Iv) 40 mg IVPUSH DAILY [facility] Last Admin: 12/14/19 10:44 Dose: 40 mg Documented by: Triamcinolone Acetonide (Aristocort 0.5% Ointment -) 1 applic TP BID [facility] Last Admin: 12/14/19 21:59 Dose: 1 applic Documented by: Valacyclovir HCl (Valtrex -) 1,000 mg GT BID [facility] Last Admin: 12/14/19 21:59 Dose: 1,000 mg Documented by: Vancomycin HCl (Vancomycin Oral Solution) 125 mg PO Q6HPO [facility] Last Admin: 12/15/19 05:44 Dose: 125 mg Documented by: - Objective Vital Signs: Vital Signs Temperature 98.3 F 12/15/19 06:00 Pulse Rate 102 H 12/15/19 06:00 Respiratory Rate 24 H 12/15/19 06:00 Blood Pressure 126/69 12/15/19 06:00 O2 Sat by Pulse Oximetry (%) 99 12/15/19 06:00 Constitutional: Yes: Cachectic, Other (POORLY RESPONSIVE) Eyes: Yes: WNL HENT: Yes: WNL Neck: Yes: Supple (TRACH) Cardiovascular: Yes: Regular Rate and Rhythm, S1, S2 Respiratory: Yes: Rhonchi (FEW RHONCHI) Gastrointestinal: Yes: Normal Bowel Sounds, Soft Extremities: Yes: Other (CONTRACTED) Labs: CBC, BMP Problem List - Problems (1) Lactic acidosis Code(s): E87.2 - ACIDOSIS (2) Pneumonia Code(s): J18.9 - PNEUMONIA, UNSPECIFIED ORGANISM (3) Sepsis Code(s): A41.9 - SEPSIS, UNSPECIFIED ORGANISM (4) Anemia Code(s): D64.9 - ANEMIA, UNSPECIFIED Qualifiers: (5) COPD (chronic obstructive pulmonary disease) Code(s): J44.9 - CHRONIC OBSTRUCTIVE PULMONARY DISEASE, UNSPECIFIED Qualifiers: (6) Cerebral palsy Code(s): G80.9 - CEREBRAL PALSY, UNSPECIFIED Qualifiers: (7) Chronic respiratory failure Code(s): J96.10 - CHRONIC RESPIRATORY FAILURE, UNSP W HYPOXIA OR HYPERCAPNIA Qualifiers: (8) Decubital ulcer Code(s): L89.90 - PRESSURE ULCER OF UNSPECIFIED SITE, UNSPECIFIED STAGE (9) Parkinson disease Code(s): G20 - PARKINSON'S DISEASE (10) Severe malnutrition Code(s): E43 - UNSPECIFIED SEVERE PROTEIN-CALORIE MALNUTRITION Assessment/Plan ASSESSMENT AND PLAN: Pneumonia Infected Decubitus Ulcers h/o C diff colitis Severe Sepsis Lactic Acidosis Chronic Respiratory Failure Cerebral Palsy Parkinsons Anemia - monitor urine output, creatinine - wound care - continue volume assist control - poor candidate for weaning - enteral feeds - DVT/GI prophylaxis - f/u chest x-ray today - abx as per ID - DR HERNANDEZ
[2019-12-15] MEDS: COLLAGENASE CLOSTRIDIUM HIST. 30 GRAMS TUBE TP SCH (08:00)
[2019-12-15] MEDS: TRIAMCINOLONE ACET 0.5% OINT 15 GM TUBE TP SCH ×2 (08:00→22:11)
--- NOTE | 2019-12-15 10:36 | PN ---
Progress Note, Physician Chief Complaint: Pneumonia Chronic respiratory failure VRE Anemia Cachexia History of Present Illness: NAD [facility] vent Operative Date: 12/10/19 Pre-Operative Diagnosis: Right hip necrotic ulcer, sacral necrotic ulcer Operation: excisional debridement skin, subcutaneous tissue, muscle right hip. Excisional debridement skin, subcutaneous tissue sacrum. Post-Operative Diagnosis: Same as Pre-op Surgeon: Rich Madrid Anesthesia: MAC Estimated Blood Loss (mls): 30 Operative Report Dictated: Yes + diarrhea - Current Medication List Current Medications: Active Medications Albuterol/Ipratropium (Duoneb -) 1 amp NEB RTID [facility] Last Admin: 12/15/19 07:45 Dose: 1 amp Documented by: Amino Acids (Prosource No Carb Liquid Pkt) 30 ml GT BID@0800,1730 [facility] Last Admin: 12/14/19 18:07 Dose: 30 ml Documented by: Ascorbic Acid (Vitamin C -) 500 mg PO BID [facility] Last Admin: 12/14/19 21:59 Dose: 500 mg Documented by: Collagenase (Santyl -) 1 applic TP DAILY [facility]; Protocol Last Admin: 12/14/19 10:44 Dose: 1 applic Documented by: Ferrous Sulfate (Feosol) 300 mg GT DAILY [facility] Last Admin: 12/14/19 10:44 Dose: 300 mg Documented by: Heparin Sodium (Porcine) (Heparin -) 5,000 unit SQ BID [facility] Last Admin: 12/14/19 21:59 Dose: 5,000 unit Documented by: Meropenem 1 gm/ Dextrose 100 mls @ 200 mls/hr IVPB Q8H-IV [facility] Last Admin: 12/15/19 02:00 Dose: Not Given Documented by: Morphine Sulfate (Morphine Sulfate) 2 mg IVPUSH Q6H PRN PRN Reason: PAIN LEVEL 7 - 10 Last Admin: 12/13/19 08:03 Dose: 2 mg Documented by: Multivitamins/Minerals (Certavite-Antioxidant Liquid) 15 ml PO DAILY [facility] Last Admin: 12/14/19 10:43 Dose: 15 ml Documented by: Pantoprazole Sodium (Protonix Iv) 40 mg IVPUSH DAILY [facility] Last Admin: 12/14/19 10:44 Dose: 40 mg Documented by: Triamcinolone Acetonide (Aristocort 0.5% Ointment -) 1 applic TP BID [facility] Last Admin: 12/14/19 21:59 Dose: 1 applic Documented by: Valacyclovir HCl (Valtrex -) 1,000 mg GT BID [facility] Last Admin: 12/14/19 21:59 Dose: 1,000 mg Documented by: Vancomycin HCl (Vancomycin Oral Solution) 125 mg PO Q6HPO [facility] Last Admin: 12/15/19 05:44 Dose: 125 mg Documented by: - Objective Vital Signs: Vital Signs Temperature 98.3 F 12/15/19 06:00 Pulse Rate 91 H 12/15/19 07:45 Respiratory Rate 16 12/15/19 07:45 Blood Pressure 126/69 12/15/19 06:00 O2 Sat by Pulse Oximetry (%) 99 12/15/19 07:45 Constitutional: Yes: No Distress, Calm, Cachectic Cardiovascular: Yes: Regular Rate and Rhythm Respiratory: Yes: Regular, Mechanically Ventilated, Rhonchi (diffuse) Gastrointestinal: Yes: Normal Bowel Sounds, Soft Genitourinary: Yes: [place] Present Musculoskeletal: Yes: Muscle Weakness Edema: Yes Edema: LUE: 1+, RUE: 1+ Peripheral Pulses WNL: Yes Neurological: Yes: Pre-Existing Deficit Labs: CBC, BMP 12/14/19 08:08 12/14/19 08:08 INR, PTT INR 1.73 (0.83-1.09) H 12/09/19 12:34 Problem List - Problems (1) Pneumonia Assessment/Plan: -Recurrent -2/2 to aspiration -IV abx -Pulmonary and ID consult -Mech vent -Instructed nursing staff to make sure HOB >45 degrees at all times Problems reviewed: Yes Code(s): J18.9 - PNEUMONIA, UNSPECIFIED ORGANISM (2) Sepsis Assessment/Plan: -resolved Problems reviewed: Yes Code(s): A41.9 - SEPSIS, UNSPECIFIED ORGANISM (3) Anemia Assessment/Plan: -Previously TAM -Continue feosol -Iron stores improved -Transfuse only if Hg<7.0 to avoid fluid overload Problems reviewed: Yes Code(s): D64.9 - ANEMIA, UNSPECIFIED Qualifiers: (4) Cerebral palsy Problems reviewed: Yes Code(s): G80.9 - CEREBRAL PALSY, UNSPECIFIED Qualifiers: (5) Chronic respiratory failure Assessment/Plan: -Mech vent -Pulmonary on board -Bronchodilators -Not a candidate for weaning at this time Problems reviewed: Yes Code(s): J96.10 - CHRONIC RESPIRATORY FAILURE, UNSP W HYPOXIA OR HYPERCAPNIA Qualifiers: (6) Functional quadriplegia Problems reviewed: Yes Code(s): R53.2 - FUNCTIONAL QUADRIPLEGIA (7) Decubital ulcer Assessment/Plan: -Seen by Vascular surgery -s/p debridement -IV abx -WBC improving Problems reviewed: Yes Code(s): L89.90 - PRESSURE ULCER OF UNSPECIFIED SITE, UNSPECIFIED STAGE (8) Severe malnutrition Assessment/Plan: -Prosource -Multivitamin -Vitamin C Problems reviewed: Yes Code(s): E43 - UNSPECIFIED SEVERE PROTEIN-CALORIE MALNUTRITION Assessment/Plan See problem list
[2019-12-15] MEDS ORDERED: PT OWN MED DRAWER 7, Y5N ONE ×3 (10:37→22:02)
[2019-12-15] MEDS ORDERED: MEROPENEM 1 GM VIAL (RESTRICTED TO ID) IVPB ONE ×2 (12:02→18:29)
[2019-12-15] MEDS ORDERED: DEXTROSE 5%-WATER 100 ML IVPB ONE ×2 (12:02→18:29)
--- NOTE | 2019-12-15 12:03 | OP ---
DATE OF OPERATION: 12/10/2019 PREOPERATIVE DIAGNOSIS: Necrotic ulcers, right hip and sacrum. POSTOPERATIVE DIAGNOSIS: Necrotic ulcers, right hip and sacrum. PROCEDURE: 1. Excisional debridement, skin and subcutaneous tissue, muscle, right hip. 2. Excisional debridement, skin and subcutaneous tissue, sacrum. SURGEON: Rich Blackwell DO ANESTHESIA: Fractional. BLOOD LOSS: 20 mL. DESCRIPTION OF PROCEDURE: Mr. Evelio Bernal is a 69-year-old male that has necrotic ulcers in the right hip and the sacrum. It was decided that he would need a debridement. Consent was obtained from the niece understanding all risks, benefits, and alternatives. Patient was then brought to the operating room and laid down on the left side down on his left hip. The area of the right hip and the sacrum were then prepped and draped in sterile surgical manner. We then went ahead and injected 15 mL of lidocaine 1% over the right hip. We then went ahead and used a number 15 blade and excised all the necrotic tissue, including the skin and subcutaneous tissue and the necrotic muscle. We were able to remove all the necrotic tissue. Bovie electrocautery was used to control hemostasis. We found a pocket of drainage and pus that was removed, and we got down to clean, healthy base. We then went ahead and injected 10 mL of lidocaine 1% over the sacrum, and that wound was about 4 x 4 cm, and we went ahead and excised the eschar, including the skin and subcutaneous tissue. We got down to good, healthy tissue using a 15 blade. Bovie electrocautery was then used to control hemostasis. We then irrigated both wounds copiously. We then went ahead and packed the wounds with saline moist gauze, ABD pads, and tape. The patient tolerated the procedure well with no complications. Total blood loss 20 mL. The patient was transferred to PACU in stable condition. RICH BLACKWELL DO RELIABILITY MANAGER/[id number]
--- NOTE | 2019-12-15 12:07 | PN ---
Progress Note (short form) - Note Progress Note: Surgery POD #5 Right hip and sacral wound debridements. Patient seen and examined on AM rounds. Nursing reports he remains stable but continues to have multiple bouts of diarrhea per nursing shift. Nursing has been changing the wound dressings according to the orders. Vital Signs Temp 98.3 F 12/15/19 06:00 Pulse 91 H 12/15/19 07:45 Resp 16 12/15/19 07:45 BP 126/69 12/15/19 06:00 Pulse Ox 99 12/15/19 07:45 Intake & Output 12/14/19 12/15/19 12/15/19 23:59 11:59 23:59 Intake Total 550 820 Output Total 1200 750 Balance -650 70 Intake: IVPB 100 Oral 0 0 Tube Feeding 200 420 Tube Irrigant 250 400 Output: Drainage 350 500 Abdomen 350 500 Urine 850 250 Maravilla 850 250 Other: Voiding Method Indwelling Catheter Indwelling Catheter Bowel Movement Yes Yes Body Mass Index (BMI) 16.2 CBC, BMP 12/14/19 08:08 12/14/19 08:08 GENERAL: Awake, not oriented to voice or touch HEAD: Normal with no signs of trauma. NECK: trach in place LUNGS: vented LOWER EXTREMITIES: warm, well-perfused. No calf tenderness. No peripheral edema. Contracted Left foot: 1.5x1.5cm stage 3 ulcer with clean beefty red base and minimal ss d/c over medial malleolus. @ 3.5cm round stage 3 ulcer heel right hip: @ [id number] stage 3 ulcer with 1/3 slough extending from perimeter. no significant undermining. +foul smelling with some drainage. left hip: @ 8x10cm stage 3 ulcer with moderate slough, and foul smelling drainage Sacrum: 2cm x 2cm ulcer with fibrinous tissue, clean with no significant d/c, Upper Back: 2cm x 1.5 cm unstageable ulcer with soft eschar, right t-spine, MIdline t- spine 6x5 stage 4 ulcer with bone exposed and 1cm of undermining superior and @9 O'clock position. well defined boarders, clean, eft t-spin small 2x1cm stage 3 ulcer with some fibrinous tissue. abrasions and early breakdown over right buttocks. All wounds dressed on rounds. Problem List - Problems (1) Pressure ulcer of hip Assessment/Plan: Patient with multiple pressure ulcers of various stages over b/l hips, sarcum, and back. Some overall improvement seen after debridement. Will continue conservative management at this time with Satnyl and wound area as ordered. -Reposition every two hours while in bed -Air mattress recommended -Use drawsheets and Trendelenburg when repositioning to reduce friction and shear -Manageincontinence via timely cleansing, use of appropriate incontinence disposables and use of barrier ointment to intact skin -Ensure adequate hydration/nutrition, supplementation per primary team -Ensure off-loading to all bony areas (heels, ankles, hips and tailbone) with Allevyn/Optifoam -Clean open wounds with normal saline and apply santyl as ordered. Evaluation and plan discussed with Dr Madrid. Code(s): L89.209 - PRESSURE ULCER OF UNSPECIFIED HIP, UNSPECIFIED STAGE (2) Pressure ulcer, upper back Code(s): L89.109 - PRESSURE ULCER OF UNSP PART OF BACK, UNSPECIFIED STAGE (3) Pressure ulcer of back Code(s): L89.109 - PRESSURE ULCER OF UNSP PART OF BACK, UNSPECIFIED STAGE Qualifiers: Pressure injury stage: stage 3 Qualified Code(s): L89.103 - Pressure ulcer of unspecified part of back, stage 3
[2019-12-15] MEDS: BANATROL PLUS POWDER PACKET GT SCH ×2 (13:38→22:10)
[2019-12-15] MEDS: LACTOBACILLUS ACIDOPHILUS 1 TABLET GT SCH (13:38)
[2019-12-15] MEDS: FERROUS SO4 300 MG/5 ML ORAL SOLN UNIT DOSE CUPS GT SCH (13:39)
[2019-12-15] MEDS: AMINO ACIDS/PROTEIN HYDROLYS 30 ML LIQUID.PKT GT SCH ×2 (13:39→18:34)
[2019-12-15] MEDS: valACYclovir HCL 500 MG TABLET (FP) GT SCH ×2 (13:39→22:11)
[2019-12-15] MEDS: MULTIVIT-MINERALS ORAL LIQUID PO SCH (13:40)
[2019-12-15] MEDS: HEPARIN NA (PORCINE) 5,000 UNITS/ML 1ML VIAL SQ SCH ×2 (13:40→22:10)
[2019-12-15] MEDS: PANTOPRAZOLE SODIUM 40 MG VIAL IVPUSH SCH (13:40)
[2019-12-15] MEDS: ASCORBIC ACID 500 MG TABLET (FP) PO SCH ×2 (13:41→22:11)
--- NOTE | 2019-12-15 15:52 | PATH ---
Surgical Pathology Report Patient Name: GENNARO CARLIN Med. Rec. #: [id number] /Age/Gender: 1950 (Age: 69) / M Account: [id number] Location: [address] [place] [address]/[facility] Taken: 12/10/2019 Received: 12/11/2019 Reported: 12/15/2019 Physicians: Rich Melendez M.D. Specimen(s) Received DEBRIDED TISSUE FROM RIGHT HIP Clinical History Unstageable ulcer of hips and back Final Diagnosis DEBRIDED TISSUE, RIGHT HIP, DEBRIDEMENT: PORTIONS OF FIBROADIPOSE TISSUE AND SKELETAL MUSCLE WITH NECROSIS, MARKED ACUTE AND CHRONIC INFLAMMATION, AND ABSCESS FORMATION. Electronically Signed Fausto Greene M.D. Gross Description Received in formalin labeled "debrided tissue right hip" are multiple irregular fragments of yellow-mckinney predominantly necrotic soft tissue measuring 7.5 x 5.5 x 5 cm in aggregate. Grill Attendant sections are submitted in one cassette. MLFIDE/12/11/2019 nani/12/11/2019
--- NOTE | 2019-12-15 16:14 | PN ---
Progress Note (short form) - Note Progress Note: resting comfortably trach to vent 2 loose BMs today Vital Signs Period Temp Pulse Resp BP Sys/Gomez Pulse Ox Last 24 Hr 98.3 F-98.9 F 91-107 14-24 99-157/45-90 97-100 cor-rrr lungs decreased bs at bases abd soft,nt GT/JT, rash unchanged ext contracted CBC, BMP 12/14/19 08:08 12/14/19 08:08 Microbiology 12/07/19 12:10 Sputum - Endotrachea Suction/Ventilator Gram Stain - Final 12/07/19 12:10 Sputum - Endotrachea Suction/Ventilator Sputum Culture - Final Proteus Mirabilus - Esbl Produ Pseudomonas Aeruginosa Klebsiella Pneumoniae - Esbl 12/07/19 18:20 Hip - Left Gram Stain - Final 12/07/19 18:20 Hip - Left Wound Culture - Final Pseudomonas Aeruginosa Proteus Mirabilus - Esbl Produ Vr Ec Faecium 12/10/19 20:45 Stool Clostridioides difficile Antigen - Final 12/10/19 20:45 Stool Clostridioides difficile Toxin Assay - Final 12/05/19 10:35 Blood - Peripheral Venous Blood Culture - Final NO GROWTH AFTER 5 DAYS INCUBATION 12/05/19 10:35 Blood - Peripheral Venous Blood Culture - Final NO GROWTH AFTER 5 DAYS INCUBATION 12/05/19 12:10 Urine - Urine Maravilla Urine Culture - Final Vr Ec Faecium a/p sepsis cavitary pneumonia RUL, left lung pneumonia infected decubiti abdominal wall cellulitis history of cdiff on po vancomycin switch to meropenem to treat resistant pseudomonas in sputum as patient has ct scan findings of cavitary pneumonia continue po vancomycin for duration of broadspectrum antibiotics, then will need taper ISOLATE vre isolation- no need to treat urine isolate-continue isolation overall prognosis is poor ?zoster left flank- on valtrex via gt consider placing picc line and treating fci (14 to 21 days) for cavitary pnemonia with meropenem will require po vancomycin for the duration of the BS abx and then a prolonged taper
[2019-12-16] MEDS: VANCOMYCIN 250 MG/5 ML ORAL SOLUTION PO SCH ×4 (00:54→17:00)
[2019-12-16] MEDS ORDERED: DEXTROSE 5%-WATER 100 ML IVPB ONE ×3 (01:35→16:57)
[2019-12-16] MEDS ORDERED: MEROPENEM 1 GM VIAL (RESTRICTED TO ID) IVPB ONE ×3 (01:35→16:57)
[2019-12-16] MEDS: MEROPENEM 1 GM in DEXTROSE 5%-WATER 100 ML IVPB SCH ×3 (01:39→16:58)
[2019-12-16] MEDS: BANATROL PLUS POWDER PACKET GT SCH ×3 (06:30→22:27)
--- NOTE | 2019-12-16 07:16 | PN ---
Progress Note, Physician History of Present Illness: pulmonary no change,poorly responsive on vent support ac mode,-resp distress,t max 100.1 - Current Medication List Current Medications: Active Medications Amino Acids (Prosource No Carb Liquid Pkt) 30 ml GT BID@0800,1730 [facility] Last Admin: 12/15/19 18:34 Dose: 30 ml Documented by: Ascorbic Acid (Vitamin C -) 500 mg PO BID [facility] Last Admin: 12/15/19 22:11 Dose: 500 mg Documented by: Banana Based Medical Food (Banatrol Plus Powder Packet) 1 packet GT TID [facility] Last Admin: 12/16/19 06:30 Dose: 1 packet Documented by: Collagenase (Santyl -) 1 applic TP DAILY [facility]; Protocol Last Admin: 12/15/19 08:00 Dose: 1 applic Documented by: Ferrous Sulfate (Feosol) 300 mg GT DAILY [facility] Last Admin: 12/15/19 13:39 Dose: 300 mg Documented by: Heparin Sodium (Porcine) (Heparin -) 5,000 unit SQ BID [facility] Last Admin: 12/15/19 22:10 Dose: 5,000 unit Documented by: Meropenem 1 gm/ Dextrose 100 mls @ 200 mls/hr IVPB Q8H-IV [facility] Last Admin: 12/16/19 01:39 Dose: 200 mls/hr Documented by: Lactobacillus Acidophilus (Bacid -) 1 tab GT DAILY [facility] Last Admin: 12/15/19 13:38 Dose: 1 tab Documented by: Morphine Sulfate (Morphine Sulfate) 2 mg IVPUSH Q6H PRN PRN Reason: PAIN LEVEL 7 - 10 Last Admin: 12/13/19 08:03 Dose: 2 mg Documented by: Multivitamins/Minerals (Certavite-Antioxidant Liquid) 15 ml PO DAILY [facility] Last Admin: 12/15/19 13:40 Dose: 15 ml Documented by: Pantoprazole Sodium (Protonix Iv) 40 mg IVPUSH DAILY [facility] Last Admin: 12/15/19 13:40 Dose: 40 mg Documented by: Triamcinolone Acetonide (Aristocort 0.5% Ointment -) 1 applic TP BID [facility] Last Admin: 12/15/19 22:11 Dose: 1 applic Documented by: Valacyclovir HCl (Valtrex -) 1,000 mg GT BID [facility] Last Admin: 12/15/19 22:11 Dose: 1,000 mg Documented by: Vancomycin HCl (Vancomycin Oral Solution) 125 mg PO Q6HPO [facility] Last Admin: 12/16/19 06:30 Dose: 125 mg Documented by: - Objective Vital Signs: Vital Signs Temperature 100.1 F H 12/16/19 06:00 Pulse Rate 97 H 12/16/19 06:00 Respiratory Rate 20 12/16/19 06:00 Blood Pressure 146/59 L 12/16/19 06:00 O2 Sat by Pulse Oximetry (%) 98 12/16/19 06:00 Constitutional: Yes: Cachectic, Other (poorly responsive) Eyes: Yes: WNL, Other HENT: Yes: WNL Neck: Yes: Supple (trach) Cardiovascular: Yes: Regular Rate and Rhythm, S1, S2 Respiratory: Yes: Rhonchi (few scattered rhonchi) Gastrointestinal: Yes: Normal Bowel Sounds, Soft Extremities: Yes: Other (contracted) Edema: No Labs: CBC, BMP Problem List - Problems (1) Lactic acidosis Code(s): E87.2 - ACIDOSIS (2) Pneumonia Code(s): J18.9 - PNEUMONIA, UNSPECIFIED ORGANISM (3) Sepsis Code(s): A41.9 - SEPSIS, UNSPECIFIED ORGANISM (4) Anemia Code(s): D64.9 - ANEMIA, UNSPECIFIED Qualifiers: (5) COPD (chronic obstructive pulmonary disease) Code(s): J44.9 - CHRONIC OBSTRUCTIVE PULMONARY DISEASE, UNSPECIFIED Qualifiers: (6) Cerebral palsy Code(s): G80.9 - CEREBRAL PALSY, UNSPECIFIED Qualifiers: (7) Chronic respiratory failure Code(s): J96.10 - CHRONIC RESPIRATORY FAILURE, UNSP W HYPOXIA OR HYPERCAPNIA Qualifiers: (8) Decubital ulcer Code(s): L89.90 - PRESSURE ULCER OF UNSPECIFIED SITE, UNSPECIFIED STAGE (9) Parkinson disease Code(s): G20 - PARKINSON'S DISEASE (10) Severe malnutrition Code(s): E43 - UNSPECIFIED SEVERE PROTEIN-CALORIE MALNUTRITION Assessment/Plan ASSESSMENT AND PLAN: Pneumonia Infected Decubitus Ulcers h/o C diff colitis Severe Sepsis Lactic Acidosis Chronic Respiratory Failure Cerebral Palsy Parkinsons Anemia - monitor urine output, creatinine - wound care - continue volume assist control - poor candidate for weaning - enteral feeds - DVT/GI prophylaxis - abx as per JUAN HERNANDEZ
--- NOTE | 2019-12-16 09:31 | PN ---
Progress Note, Physician - Current Medication List Current Medications: Active Medications Amino Acids (Prosource No Carb Liquid Pkt) 30 ml GT BID@0800,1730 [facility] Last Admin: 12/15/19 18:34 Dose: 30 ml Documented by: Ascorbic Acid (Vitamin C -) 500 mg PO BID [facility] Last Admin: 12/15/19 22:11 Dose: 500 mg Documented by: Banana Based Medical Food (Banatrol Plus Powder Packet) 1 packet GT TID [facility] Last Admin: 12/16/19 06:30 Dose: 1 packet Documented by: Collagenase (Santyl -) 1 applic TP DAILY [facility]; Protocol Last Admin: 12/15/19 08:00 Dose: 1 applic Documented by: Ferrous Sulfate (Feosol) 300 mg GT DAILY [facility] Last Admin: 12/15/19 13:39 Dose: 300 mg Documented by: Heparin Sodium (Porcine) (Heparin -) 5,000 unit SQ BID [facility] Last Admin: 12/15/19 22:10 Dose: 5,000 unit Documented by: Meropenem 1 gm/ Dextrose 100 mls @ 200 mls/hr IVPB Q8H-IV [facility] Last Admin: 12/16/19 01:39 Dose: 200 mls/hr Documented by: Lactobacillus Acidophilus (Bacid -) 1 tab GT DAILY [facility] Last Admin: 12/15/19 13:38 Dose: 1 tab Documented by: Multivitamins/Minerals (Certavite-Antioxidant Liquid) 15 ml PO DAILY [facility] Last Admin: 12/15/19 13:40 Dose: 15 ml Documented by: Pantoprazole Sodium (Protonix Iv) 40 mg IVPUSH DAILY [facility] Last Admin: 12/15/19 13:40 Dose: 40 mg Documented by: Triamcinolone Acetonide (Aristocort 0.5% Ointment -) 1 applic TP BID [facility] Last Admin: 12/15/19 22:11 Dose: 1 applic Documented by: Valacyclovir HCl (Valtrex -) 1,000 mg GT BID [facility] Last Admin: 12/15/19 22:11 Dose: 1,000 mg Documented by: Vancomycin HCl (Vancomycin Oral Solution) 125 mg PO Q6HPO [facility] Last Admin: 12/16/19 06:30 Dose: 125 mg Documented by: - Objective Vital Signs: Vital Signs Temperature 100.1 F H 12/16/19 06:00 Pulse Rate 97 H 12/16/19 06:00 Respiratory Rate 12/16/19 06:00 Blood Pressure 146/59 L 12/16/19 06:00 O2 Sat by Pulse Oximetry (%) 98 12/16/19 06:00 Cardiovascular: Yes: S1, S2 Respiratory: Yes: Mechanically Ventilated Gastrointestinal: Yes: Normal Bowel Sounds, Soft Extremities: Yes: Other (contracted) Wound/Incision: Yes: Reddened Labs: CBC, BMP 12/14/19 08:08 12/14/19 08:08 INR, PTT INR 1.73 (0.83-1.09) H 12/09/19 12:34 Assessment/Plan - Problems (1) Pneumonia Assessment/Plan: -Recurrent -2/2 to aspiration -IV abx -Pulmonary and ID consult -Mech vent -Instructed nursing staff to make sure HOB >45 degrees at all times Problems reviewed: Yes Code(s): J18.9 - PNEUMONIA, UNSPECIFIED ORGANISM (2) Sepsis Assessment/Plan: -resolved Problems reviewed: Yes Code(s): A41.9 - SEPSIS, UNSPECIFIED ORGANISM (3) Anemia Assessment/Plan: -Previously TAM -Continue feosol -Iron stores improved -Transfuse only if Hg<7.0 to avoid fluid overload Problems reviewed: Yes Code(s): D64.9 - ANEMIA, UNSPECIFIED Qualifiers: (4) Cerebral palsy Problems reviewed: Yes Code(s): G80.9 - CEREBRAL PALSY, UNSPECIFIED Qualifiers: (5) Chronic respiratory failure Assessment/Plan: -Mech vent -Pulmonary on board -Bronchodilators -Not a candidate for weaning at this time Problems reviewed: Yes Code(s): J96.10 - CHRONIC RESPIRATORY FAILURE, UNSP W HYPOXIA OR HYPERCAPNIA Qualifiers: (6) Functional quadriplegia Problems reviewed: Yes Code(s): R53.2 - FUNCTIONAL QUADRIPLEGIA (7) Decubital ulcer Assessment/Plan: -Seen by Vascular surgery -s/p debridement -IV abx -WBC improving Problems reviewed: Yes Code(s): L89.90 - PRESSURE ULCER OF UNSPECIFIED SITE, UNSPECIFIED STAGE (8) Severe malnutrition Assessment/Plan: -Prosource -Multivitamin -Vitamin C Problems reviewed: Yes Code(s): E43 - UNSPECIFIED SEVERE PROTEIN-CALORIE MALNUTRITION
[2019-12-16 11:16] LABS: BASO % 0.7 % (0-2.0); EOS % 1.3 % (0-4.5); HEMATOCRIT 25.7 % (35.4-49); HEMOGLOBIN 8.3 GM/dL (11.7-16.9); LYMPH % 11.8 % (8-40); MCH 29.5 pg (25.7-33.7); MCHC 32.1 g/dl (32.0-35.9); MEAN CELL VOLUME 91.9 fl (80-96); MEAN PLT VOLUME 7.6 fl (7.5-11.1); MONO % 6.9 % (3.8-10.2); NEUT % 79.3 % (42.8-82.8); PLATELET COUNT 699 K/MM3 (134-434); RBC 2.79 M/mm3 (4.00-5.60); RDW 17.7 % (11.9-15.9); WHITE BLOOD COUNT 13.9 K/mm3 (4.0-10.0)
[2019-12-16 11:35] LABS: ALBUMIN 0.9 g/dl (3.4-5.0); BILIRUBIN,TOTAL 0.3 mg/dL (0.2-1); BLOOD UREA NITROGEN 15.3 mg/dL (7-18); CREATININE 0.3 mg/dL (0.55-1.3); POTASSIUM 4.4 mmol/L (3.5-5.1); TOT PROT 6.4 g/dl (6.4-8.2)
[2019-12-16] MEDS ORDERED: PT OWN MED DRAWER 7, Y5N ONE (11:35)
[2019-12-16] MEDS: AMINO ACIDS/PROTEIN HYDROLYS 30 ML LIQUID.PKT GT SCH ×2 (11:46→16:59)
[2019-12-16] MEDS: HEPARIN NA (PORCINE) 5,000 UNITS/ML 1ML VIAL SQ SCH ×2 (11:47→22:27)
[2019-12-16] MEDS: FERROUS SO4 300 MG/5 ML ORAL SOLN UNIT DOSE CUPS GT SCH (11:47)
[2019-12-16] MEDS: PANTOPRAZOLE SODIUM 40 MG VIAL IVPUSH SCH (11:47)
[2019-12-16] MEDS: LACTOBACILLUS ACIDOPHILUS 1 TABLET GT SCH (11:47)
[2019-12-16] MEDS: ASCORBIC ACID 500 MG TABLET (FP) PO SCH ×2 (11:47→22:27)
[2019-12-16] MEDS: MULTIVIT-MINERALS ORAL LIQUID PO SCH (11:48)
[2019-12-16] MEDS: valACYclovir HCL 500 MG TABLET (FP) GT SCH ×2 (11:48→22:27)
[2019-12-16] MEDS: COLLAGENASE CLOSTRIDIUM HIST. 30 GRAMS TUBE TP SCH (11:49)
[2019-12-16] MEDS: TRIAMCINOLONE ACET 0.5% OINT 15 GM TUBE TP SCH ×2 (11:49→22:27)
[2019-12-16] MEDS ORDERED: MORPHINE SULFATE 2 MG/ML VIAL IVPUSH PRN (14:13)
--- NOTE | 2019-12-16 15:54 | PN ---
Progress Note (short form) - Note Progress Note: resting comfortably trach to vent rectal tube Vital Signs Vital Signs Period Temp Pulse Resp BP Sys/Gomez Pulse Ox Last 24 Hr 98.2 F-100.1 F 92-109 17-252 97-146/57-67 97-100 cor-rrr lungs decreased bs at bses abd soft,nt +GT, +JT torsten on left flank unchanged ext contracted multiple decubiti cxray- improved Microbiology 12/07/19 12:10 Sputum - Endotrachea Suction/Ventilator Gram Stain - Final 12/07/19 12:10 Sputum - Endotrachea Suction/Ventilator Sputum Culture - Final Proteus Mirabilus - Esbl Produ Pseudomonas Aeruginosa Klebsiella Pneumoniae - Esbl 12/07/19 18:20 Hip - Left Gram Stain - Final 12/07/19 18:20 Hip - Left Wound Culture - Final Pseudomonas Aeruginosa Proteus Mirabilus - Esbl Produ Vr Ec Faecium 12/10/19 20:45 Stool Clostridioides difficile Antigen - Final 12/10/19 20:45 Stool Clostridioides difficile Toxin Assay - Final 12/05/19 10:35 Blood - Peripheral Venous Blood Culture - Final NO GROWTH AFTER 5 DAYS INCUBATION 12/05/19 10:35 Blood - Peripheral Venous Blood Culture - Final NO GROWTH AFTER 5 DAYS INCUBATION 12/05/19 12:10 Urine - Urine [place] Urine Culture - Final Vr Ec Faecium a/p sepsis cavitary pneumonia RUL, left lung pneumonia infected decubiti abdominal wall cellulitis-resolving history of cdiff on po vancomycin continue meropenem to treat resistant pseudomonas in sputum as patient has ct scan findings of cavitary pneumonia continue po vancomycin for duration of broadspectrum antibiotics, then will need taper ISOLATE vre isolation- no need to treat urine isolate-continue isolation overall prognosis is poor ?zoster left flank- on valtrex via gt day #3 of 7 will require po vancomycin for the duration of the BS abx and then a prolonged taper will repeat chest ct given rapid improvement noted on cxray continue meropenem continue po vancomycin
[2019-12-17] MEDS ORDERED: PT OWN MED DRAWER 7, Y5N ONE ×5 (00:27→22:37)
[2019-12-17] MEDS: VANCOMYCIN 250 MG/5 ML ORAL SOLUTION PO SCH ×4 (00:29→17:28)
[2019-12-17] MEDS ORDERED: MEROPENEM 1 GM VIAL (RESTRICTED TO ID) IVPB ONE ×3 (02:06→17:26)
[2019-12-17] MEDS ORDERED: DEXTROSE 5%-WATER 100 ML IVPB ONE ×3 (02:06→17:26)
[2019-12-17] MEDS: MEROPENEM 1 GM in DEXTROSE 5%-WATER 100 ML IVPB SCH ×3 (02:34→17:28)
[2019-12-17] MEDS: BANATROL PLUS POWDER PACKET GT SCH ×3 (05:21→22:48)
--- NOTE | 2019-12-17 07:52 | PN ---
Progress Note, Physician History of Present Illness: pulmonary no change,poorly responsive on vent support ac mode - Current Medication List Current Medications: Active Medications Amino Acids (Prosource No Carb Liquid Pkt) 30 ml GT BID@0800,1730 [facility] Last Admin: 12/16/19 16:59 Dose: 30 ml Documented by: Ascorbic Acid (Vitamin C -) 500 mg PO BID [facility] Last Admin: 12/16/19 22:27 Dose: 500 mg Documented by: Banana Based Medical Food (Banatrol Plus Powder Packet) 1 packet GT TID [facility] Last Admin: 12/17/19 05:21 Dose: 1 packet Documented by: Collagenase (Santyl -) 1 applic TP DAILY [facility]; Protocol Last Admin: 12/16/19 11:49 Dose: 1 applic Documented by: Ferrous Sulfate (Feosol) 300 mg GT DAILY [facility] Last Admin: 12/16/19 11:47 Dose: 300 mg Documented by: Heparin Sodium (Porcine) (Heparin -) 5,000 unit SQ BID [facility] Last Admin: 12/16/19 22:27 Dose: 5,000 unit Documented by: Meropenem 1 gm/ Dextrose 100 mls @ 200 mls/hr IVPB Q8H-IV [facility] Last Admin: 12/17/19 02:34 Dose: 200 mls/hr Documented by: Lactobacillus Acidophilus (Bacid -) 1 tab GT DAILY [facility] Last Admin: 12/16/19 11:47 Dose: 1 tab Documented by: Morphine Sulfate (Morphine Sulfate) 2 mg IVPUSH Q4H PRN PRN Reason: PAIN LEVEL 6-10 Multivitamins/Minerals (Certavite-Antioxidant Liquid) 15 ml PO DAILY [facility] Last Admin: 12/16/19 11:48 Dose: 15 ml Documented by: Pantoprazole Sodium (Protonix Iv) 40 mg IVPUSH DAILY [facility] Last Admin: 12/16/19 11:47 Dose: 40 mg Documented by: Triamcinolone Acetonide (Aristocort 0.5% Ointment -) 1 applic TP BID [facility] Last Admin: 12/16/19 22:27 Dose: 1 applic Documented by: Valacyclovir HCl (Valtrex -) 1,000 mg GT BID [facility] Last Admin: 12/16/19 22:27 Dose: 1,000 mg Documented by: Vancomycin HCl (Vancomycin Oral Solution) 125 mg PO Q6HPO [facility] Last Admin: 12/17/19 05:21 Dose: 125 mg Documented by: - Objective Vital Signs: Vital Signs Temperature 98.1 F 12/17/19 06:00 Pulse Rate 100 H 12/17/19 06:00 Respiratory Rate 18 12/17/19 06:03 Blood Pressure 104/46 L 12/17/19 06:00 O2 Sat by Pulse Oximetry (%) 99 12/17/19 06:03 Constitutional: Yes: Cachectic, Other (poorly responsive) Eyes: Yes: WNL Neck: Yes: Supple (trach) Respiratory: Yes: Rhonchi (few rhonchi) Gastrointestinal: Yes: Normal Bowel Sounds, Soft Extremities: Yes: Other (contracted) Edema: No Labs: CBC, BMP Laboratory Tests 12/17/19 12/17/19 11:44 11:44 WBC 24.5 H Hgb 7.6 L Hct 23.7 L Plt Count 691 H BUN 11.8 Creatinine 0.2 L Problem List - Problems (1) Lactic acidosis Code(s): E87.2 - ACIDOSIS (2) Pneumonia Code(s): J18.9 - PNEUMONIA, UNSPECIFIED ORGANISM (3) Sepsis Code(s): A41.9 - SEPSIS, UNSPECIFIED ORGANISM (4) Anemia Code(s): D64.9 - ANEMIA, UNSPECIFIED Qualifiers: (5) COPD (chronic obstructive pulmonary disease) Code(s): J44.9 - CHRONIC OBSTRUCTIVE PULMONARY DISEASE, UNSPECIFIED Qualifiers: (6) Cerebral palsy Code(s): G80.9 - CEREBRAL PALSY, UNSPECIFIED Qualifiers: (7) Chronic respiratory failure Code(s): J96.10 - CHRONIC RESPIRATORY FAILURE, UNSP W HYPOXIA OR HYPERCAPNIA Qualifiers: (8) Decubital ulcer Code(s): L89.90 - PRESSURE ULCER OF UNSPECIFIED SITE, UNSPECIFIED STAGE (9) Parkinson disease Code(s): G20 - PARKINSON'S DISEASE (10) Severe malnutrition Code(s): E43 - UNSPECIFIED SEVERE PROTEIN-CALORIE MALNUTRITION Assessment/Plan ASSESSMENT AND PLAN: Pneumonia Infected Decubitus Ulcers h/o C diff colitis Severe Sepsis Lactic Acidosis Chronic Respiratory Failure Cerebral Palsy Parkinsons Anemia - monitor urine output, creatinine - wound care - continue volume assist control - poor candidate for weaning - enteral feeds - DVT/GI prophylaxis - abx as per ID - DR HERNANDEZ
[2019-12-17] MEDS: AMINO ACIDS/PROTEIN HYDROLYS 30 ML LIQUID.PKT GT SCH ×2 (08:50→16:54)
--- NOTE | 2019-12-17 10:37 | PN ---
Progress Note, Physician Chief Complaint: Pneumonia Chronic respiratory failure VRE Anemia Cachexia History of Present Illness: NAD mech vent Operative Date: 12/10/19 Pre-Operative Diagnosis: Right hip necrotic ulcer, sacral necrotic ulcer Operation: excisional debridement skin, subcutaneous tissue, muscle right hip. Excisional debridement skin, subcutaneous tissue sacrum. Post-Operative Diagnosis: Same as Pre-op Surgeon: Rich Madrid Anesthesia: MAC Estimated Blood Loss (mls): 30 Operative Report Dictated: Yes + diarrhea+ rectal tube CT chest shows improvement in pneumonia in the left lung On Meropenem, PO Vanco for cdiff + Valacyclovir for zoster - Current Medication List Current Medications: Active Medications Amino Acids (Prosource No Carb Liquid Pkt) 30 ml GT BID@0800,1730 [facility] Last Admin: 12/16/19 16:59 Dose: 30 ml Documented by: Ascorbic Acid (Vitamin C -) 500 mg PO BID [facility] Last Admin: 12/16/19 22:27 Dose: 500 mg Documented by: Banana Based Medical Food (Banatrol Plus Powder Packet) 1 packet GT TID [facility] Last Admin: 12/17/19 05:21 Dose: 1 packet Documented by: Collagenase (Santyl -) 1 applic TP DAILY [facility]; Protocol Last Admin: 12/16/19 11:49 Dose: 1 applic Documented by: Ferrous Sulfate (Feosol) 300 mg GT DAILY [facility] Last Admin: 12/16/19 11:47 Dose: 300 mg Documented by: Heparin Sodium (Porcine) (Heparin -) 5,000 unit SQ BID [facility] Last Admin: 12/16/19 22:27 Dose: 5,000 unit Documented by: Meropenem 1 gm/ Dextrose 100 mls @ 200 mls/hr IVPB Q8H-IV [facility] Last Admin: 12/17/19 02:34 Dose: 200 mls/hr Documented by: Lactobacillus Acidophilus (Bacid -) 1 tab GT DAILY [facility] Last Admin: 12/16/19 11:47 Dose: 1 tab Documented by: Morphine Sulfate (Morphine Sulfate) 2 mg IVPUSH Q4H PRN PRN Reason: PAIN LEVEL 6-10 Multivitamins/Minerals (Certavite-Antioxidant Liquid) 15 ml PO DAILY [facility] Last Admin: 12/16/19 11:48 Dose: 15 ml Documented by: Pantoprazole Sodium (Protonix Iv) 40 mg IVPUSH DAILY [facility] Last Admin: 12/16/19 11:47 Dose: 40 mg Documented by: Triamcinolone Acetonide (Aristocort 0.5% Ointment -) 1 applic TP BID [facility] Last Admin: 12/16/19 22:27 Dose: 1 applic Documented by: Valacyclovir HCl (Valtrex -) 1,000 mg GT BID [facility] Last Admin: 12/16/19 22:27 Dose: 1,000 mg Documented by: Vancomycin HCl (Vancomycin Oral Solution) 125 mg PO Q6HPO [facility] Last Admin: 12/17/19 05:21 Dose: 125 mg Documented by: - Objective Vital Signs: Vital Signs Temperature 98.1 F 12/17/19 06:00 Pulse Rate 100 H 12/17/19 06:00 Respiratory Rate 18 12/17/19 06:03 Blood Pressure 104/46 L 12/17/19 06:00 O2 Sat by Pulse Oximetry (%) 99 12/17/19 06:03 Constitutional: Yes: No Distress, Calm, Cachectic Cardiovascular: Yes: Regular Rate and Rhythm Respiratory: Yes: Mechanically Ventilated, Rhonchi (diffuse) Gastrointestinal: Yes: Normal Bowel Sounds, Soft Genitourinary: Yes: Maravilla Present Musculoskeletal: Yes: Muscle Weakness Extremities: Yes: Other (contracted) Edema: Yes Edema: LUE: 1+, RUE: 1+ Peripheral Pulses WNL: Yes Neurological: Yes: Pre-Existing Deficit Labs: CBC, BMP 12/16/19 10:16 12/16/19 10:16 INR, PTT INR 1.73 (0.83-1.09) H 12/09/19 12:34 Problem List - Problems (1) Pneumonia Assessment/Plan: -Recurrent -IV meropenem -CT chest shows improvement -Pulmonary and ID consult -[facility] vent -Instructed nursing staff to make sure HOB >45 degrees at all times Problems reviewed: Yes Code(s): J18.9 - PNEUMONIA, UNSPECIFIED ORGANISM (2) Sepsis Assessment/Plan: -resolved Problems reviewed: Yes Code(s): A41.9 - SEPSIS, UNSPECIFIED ORGANISM (3) Anemia Assessment/Plan: -Previously TAM -Received 1 U PRBC yesterday -Continue feosol BID -Iron stores improved -Transfuse only if Hg<7.0 to avoid fluid overload -Injectafer once -AC on hold Problems reviewed: Yes Code(s): D64.9 - ANEMIA, UNSPECIFIED Qualifiers: (4) Cerebral palsy Problems reviewed: Yes Code(s): G80.9 - CEREBRAL PALSY, UNSPECIFIED Qualifiers: (5) Chronic respiratory failure Assessment/Plan: -[facility] -Pulmonary on board -Bronchodilators -Not a candidate for weaning at this time Problems reviewed: Yes Code(s): J96.10 - CHRONIC RESPIRATORY FAILURE, UNSP W HYPOXIA OR HYPERCAPNIA Qualifiers: (6) Functional quadriplegia Problems reviewed: Yes Code(s): R53.2 - FUNCTIONAL QUADRIPLEGIA (7) Decubital ulcer Assessment/Plan: -Seen by Vascular surgery -s/p debridement -IV abx -WBC improving Problems reviewed: Yes Code(s): L89.90 - PRESSURE ULCER OF UNSPECIFIED SITE, UNSPECIFIED STAGE (8) Severe malnutrition Assessment/Plan: -Prosource -Multivitamin -Vitamin C Problems reviewed: Yes Code(s): E43 - UNSPECIFIED SEVERE PROTEIN-CALORIE MALNUTRITION Assessment/Plan See problem list
[2019-12-17] MEDS: PANTOPRAZOLE SODIUM 40 MG VIAL IVPUSH SCH (11:30)
[2019-12-17] MEDS: FERROUS SO4 300 MG/5 ML ORAL SOLN UNIT DOSE CUPS GT SCH (11:30)
[2019-12-17] MEDS: LACTOBACILLUS ACIDOPHILUS 1 TABLET GT SCH (11:30)
[2019-12-17] MEDS: ASCORBIC ACID 500 MG TABLET (FP) PO SCH ×2 (11:30→22:48)
[2019-12-17] MEDS: HEPARIN NA (PORCINE) 5,000 UNITS/ML 1ML VIAL SQ SCH ×2 (11:31→22:48)
[2019-12-17] MEDS: MULTIVIT-MINERALS ORAL LIQUID PO SCH (11:32)
[2019-12-17] MEDS: COLLAGENASE CLOSTRIDIUM HIST. 30 GRAMS TUBE TP SCH (11:32)
[2019-12-17] MEDS: TRIAMCINOLONE ACET 0.5% OINT 15 GM TUBE TP SCH ×2 (11:32→22:49)
[2019-12-17] MEDS: valACYclovir HCL 500 MG TABLET (FP) GT SCH ×2 (11:33→22:49)
[2019-12-17] MEDS ORDERED: FERRIC CARBOXYMALTOSE 750 MG in SODIUM CHLORIDE 250 ML IVPB ONE (12:00)
[2019-12-17 12:08] LABS: BASO % 0.2 % (0-2.0); EOS % 1.1 % (0-4.5); HEMATOCRIT 23.7 % (35.4-49); HEMOGLOBIN 7.6 GM/dL (11.7-16.9); MCHC 32.2 g/dl (32.0-35.9); MEAN CELL VOLUME 90.1 fl (80-96); MEAN PLT VOLUME 6.8 fl (7.5-11.1); MONO % 3.2 % (3.8-10.2); NEUT % 87.5 % (42.8-82.8); PLATELET COUNT 691 K/MM3 (134-434); RBC 2.64 M/mm3 (4.00-5.60); RDW 17.6 % (11.9-15.9); WHITE BLOOD COUNT 24.5 K/mm3 (4.0-10.0)
[2019-12-17 12:49] LABS: ALBUMIN 0.8 g/dl (3.4-5.0); ALK PHOS 103 U/L (45-117); ANION GAP 6 MMOL/L (8-16); BILIRUBIN,TOTAL 0.1 mg/dL (0.2-1); BLOOD UREA NITROGEN 11.8 mg/dL (7-18); CALCIUM 9.3 mg/dL (8.5-10.1); CHLORIDE 106 mmol/L (98-107); CO2 23 mmol/L (21-32); CREATININE 0.2 mg/dL (0.55-1.3); GLUCOSE,RANDOM 101 mg/dL (74-106); POTASSIUM 4.5 mmol/L (3.5-5.1); SGOT/AST 14 U/L (15-37); SGPT/ALT < 6 U/L (13-61); SODIUM 135 mmol/L (136-145); TOT PROT 6.2 g/dl (6.4-8.2)
[2019-12-17 12:52] LABS: ANISOCYTOSIS 1+; MACROCYTOSIS 0; PLATELET ESTIMATE INCREASED
--- NOTE | 2019-12-17 15:36 | PN ---
Progress Note (short form) - Note Progress Note: Surgery POD #7 Right hip and sacral wound debridements. Nursing reports he remains stable but continues to have multiple bouts of diarrhea, now with rectal tube in place. Nursing has been changing the wound dressings according to the orders. Vital Signs Temp 98.7 F 12/17/19 10:00 Pulse 102 H 12/17/19 10:00 Resp 25 H 12/17/19 13:00 BP 124/61 12/17/19 10:00 Pulse Ox 100 12/17/19 13:00 Intake & Output 12/16/19 12/17/19 12/17/19 23:59 11:59 23:59 Intake Total 0 695 Output Total 700 850 Balance -700 -155 Intake: IVPB 100 Oral 0 Tube Feeding 235 Tube Irrigant (Tube 360 Feeding Water) Output: Drainage 200 550 Abdomen 200 550 Urine 500 300 Maravilla 500 300 Other: Voiding Method Indwelling Catheter Indwelling Catheter Bowel Movement Yes: rectal tube Yes: rectal tube CBC, BMP 12/17/19 11:44 12/17/19 11:44 GENERAL: Awake, resting comfortably, NAD, not oriented to voice or touch HEAD: Normal with no signs of trauma. NECK: trach in place LUNGS: vented LOWER EXTREMITIES: warm, well-perfused. Compartments soft, supple, +1 pitting edema at feet. Contracted Left foot: 2x2 cm stage 4 ulcer with clean beefy red base and exposed tendon with mild ss d/c over medial malleolus. Small 1x1cm soft eschar over left lateral aspect of foot over base of 5th metatarsal right hip: @ [id number] stage 4 ulcer with 1/3 slough extending from perimeter tendons exposed. no significant undermining. +foul smelling with some drainage. left hip: @ [id number] unstagable with worsening soft eschar and slough, and foul smelling drainage Sacrum: 2cm x 2cm ulcer with fibrinous tissue, clean with no significant d/c, Upper Back: 5cm x 4cm unstageable ulcer with soft eschar, right t-spine, MIdline t- spine 6x5 stage 4 ulcer with bone exposed and 1cm of undermining superior and @9 O'clock position and 6 O'clock position. well defined boarders, clean, left t-spin small 2x1cm stage 3 ulcer with some fibrinous tissue. abrasions and early breakdown over right buttocks. All wounds dressed on rounds. Problem List - Problems (1) Pressure ulcer of hip Assessment/Plan: Patient with multiple pressure ulcers of various stages over left ankle/foot, b/l hips, sarcum, and back. Some overall improvement seen after debridement. Patient will likey benefit from debridement of left hip. -Agressive turning and positioning -Reposition every two hours while in bed -Air mattress as ordered- discussed -Use drawsheets and Trendelenburg when repositioning to reduce friction and shear -Manageincontinence via timely cleansing, use of appropriate incontinence disposables and use of barrier ointment to intact skin- Phytoplex -Ensure adequate hydration/nutrition, supplementation per primary team -Ensure off-loading to all bony areas (heels, ankles, hips and tailbone) with Allevyn/Optifoam- Heel pads -Clean open wounds with normal saline and apply santyl as ordered. -Hold tube feeds after midnight for debridement in OR tomorrow 12/[address] Madrid Evaluation and plan discussed with Dr Madrid. Code(s): L89.209 - PRESSURE ULCER OF UNSPECIFIED HIP, UNSPECIFIED STAGE (2) Pressure ulcer, upper back Code(s): L89.109 - PRESSURE ULCER OF UNSP PART OF BACK, UNSPECIFIED STAGE (3) Pressure ulcer of back Code(s): L89.109 - PRESSURE ULCER OF UNSP PART OF BACK, UNSPECIFIED STAGE Qualifiers: Pressure injury stage: stage 3 Qualified Code(s): L89.103 - Pressure ulcer of unspecified part of back, stage 3
--- NOTE | 2019-12-17 17:21 | PN ---
Progress Note (short form) - Note Progress Note: resting comfortably trach to vent rectal tube Vital Signs Period Temp Pulse Resp BP Sys/Gomez Pulse Ox Last 24 Hr 98.1 F-99.2 F 91-102 15-27 97-124/46-70 99-100 cor-rrr lungs decreased bs at bases abd soft, +GT, +JT rash drying ext contracted with ulcers CBC, BMP 12/17/19 11:44 12/17/19 11:44 Microbiology 12/07/19 12:10 Sputum - Endotrachea Suction/Ventilator Gram Stain - Final 12/07/19 12:10 Sputum - Endotrachea Suction/Ventilator Sputum Culture - Final Proteus Mirabilus - Esbl Produ Pseudomonas Aeruginosa Klebsiella Pneumoniae - Esbl 12/07/19 18:20 Hip - Left Gram Stain - Final 12/07/19 18:20 Hip - Left Wound Culture - Final Pseudomonas Aeruginosa Proteus Mirabilus - Esbl Produ Vr Ec Faecium 12/10/19 20:45 Stool Clostridioides difficile Antigen - Final 12/10/19 20:45 Stool Clostridioides difficile Toxin Assay - Final 12/05/19 10:35 Blood - Peripheral Venous Blood Culture - Final NO GROWTH AFTER 5 DAYS INCUBATION 12/05/19 10:35 Blood - Peripheral Venous Blood Culture - Final NO GROWTH AFTER 5 DAYS INCUBATION 12/05/19 12:10 Urine - Urine Maravilla Urine Culture - Final Vr Ec Faecium chest ct- improved left cavitary infiltrate a/p sepsis cavitary pneumonia RUL, left lung pneumonia infected decubiti abdominal wall cellulitis-resolving history of cdiff on po vancomycin continue meropenem to treat resistant pseudomonas in sputum as patient has ct scan findings of cavitary pneumonia continue po vancomycin for duration of broadspectrum antibiotics, then will need taper ISOLATE vre isolation- no need to treat urine isolate-continue isolation overall prognosis is poor ?zoster left flank- on valtrex via gt day #4 of 7 will require po vancomycin for the duration of the BS abx and then a prolonged taper continue meropenem day #7 improved- consider picc line and continued iv meropenem at the [place] for another 14 days continue po vancomycin d/w hospitalist
[2019-12-18] MEDS ORDERED: DEXTROSE 5%-WATER 100 ML IVPB ONE ×3 (00:59→18:02)
[2019-12-18] MEDS ORDERED: MEROPENEM 1 GM VIAL (RESTRICTED TO ID) IVPB ONE ×3 (00:59→18:02)
[2019-12-18] MEDS: MEROPENEM 1 GM in DEXTROSE 5%-WATER 100 ML IVPB SCH ×3 (02:32→18:12)
[2019-12-18] MEDS: BANATROL PLUS POWDER PACKET GT SCH ×3 (05:23→22:18)
--- NOTE | 2019-12-18 08:00 | PN ---
Progress Note, Physician History of Present Illness: PULMONARY NO CHANGE POORLY RESPONSIVE ON VENT SUPPORT AC MODE - Current Medication List Current Medications: Active Medications Amino Acids (Prosource No Carb Liquid Pkt) 30 ml GT BID@0800,1730 [facility] Last Admin: 12/17/19 16:54 Dose: 30 ml Documented by: Ascorbic Acid (Vitamin C -) 500 mg PO BID [facility] Last Admin: 12/17/19 22:48 Dose: 500 mg Documented by: Banana Based Medical Food (Banatrol Plus Powder Packet) 1 packet GT TID [facility] Last Admin: 12/18/19 05:23 Dose: Not Given Documented by: Collagenase (Santyl -) 1 applic TP DAILY [facility]; Protocol Last Admin: 12/17/19 11:32 Dose: 1 applic Documented by: Ferrous Sulfate (Feosol) 300 mg GT DAILY [facility] Last Admin: 12/17/19 11:30 Dose: 300 mg Documented by: Heparin Sodium (Porcine) (Heparin -) 5,000 unit SQ BID [facility] Last Admin: 12/17/19 22:48 Dose: 5,000 unit Documented by: Meropenem 1 gm/ Dextrose 100 mls @ 200 mls/hr IVPB Q8H-IV [facility] Last Admin: 12/18/19 02:32 Dose: 200 mls/hr Documented by: Lactobacillus Acidophilus (Bacid -) 1 tab GT DAILY [facility] Last Admin: 12/17/19 11:30 Dose: 1 tab Documented by: Morphine Sulfate (Morphine Sulfate) 2 mg IVPUSH Q4H PRN PRN Reason: PAIN LEVEL 6-10 Multivitamins/Minerals (Certavite-Antioxidant Liquid) 15 ml PO DAILY [facility] Last Admin: 12/17/19 11:32 Dose: 15 ml Documented by: Pantoprazole Sodium (Protonix Iv) 40 mg IVPUSH DAILY [facility] Last Admin: 12/17/19 11:30 Dose: 40 mg Documented by: Triamcinolone Acetonide (Aristocort 0.5% Ointment -) 1 applic TP BID [facility] Last Admin: 12/17/19 22:49 Dose: 1 applic Documented by: Valacyclovir HCl (Valtrex -) 1,000 mg GT BID [facility] Last Admin: 12/17/19 22:49 Dose: 1,000 mg Documented by: - Objective Vital Signs: Vital Signs Temperature 97.8 F 12/18/19 06:00 Pulse Rate 91 H 12/18/19 06:00 Respiratory Rate 18 12/18/19 06:00 Blood Pressure 96/45 L 12/18/19 06:00 O2 Sat by Pulse Oximetry (%) 99 12/18/19 06:00 Constitutional: Yes: Cachectic, Other (POORLY RESPONSIVE) Eyes: Yes: WNL HENT: Yes: WNL Neck: Yes: Supple (TRACH) Cardiovascular: Yes: Regular Rate and Rhythm, Tachycardia, S2 Respiratory: Yes: Rhonchi (FEW SCATTERED RHONCHI) Gastrointestinal: Yes: Normal Bowel Sounds, Soft Extremities: Yes: WNL, Other (CONTRACTED) Edema: No Labs: CBC, BMP Problem List - Problems (1) Lactic acidosis Code(s): E87.2 - ACIDOSIS (2) Pneumonia Code(s): J18.9 - PNEUMONIA, UNSPECIFIED ORGANISM (3) Sepsis Code(s): A41.9 - SEPSIS, UNSPECIFIED ORGANISM (4) Anemia Code(s): D64.9 - ANEMIA, UNSPECIFIED Qualifiers: (5) COPD (chronic obstructive pulmonary disease) Code(s): J44.9 - CHRONIC OBSTRUCTIVE PULMONARY DISEASE, UNSPECIFIED Qualifiers: (6) Cerebral palsy Code(s): G80.9 - CEREBRAL PALSY, UNSPECIFIED Qualifiers: (7) Chronic respiratory failure Code(s): J96.10 - CHRONIC RESPIRATORY FAILURE, UNSP W HYPOXIA OR HYPERCAPNIA Qualifiers: (8) Decubital ulcer Code(s): L89.90 - PRESSURE ULCER OF UNSPECIFIED SITE, UNSPECIFIED STAGE (9) Parkinson disease Code(s): G20 - PARKINSON'S DISEASE (10) Severe malnutrition Code(s): E43 - UNSPECIFIED SEVERE PROTEIN-CALORIE MALNUTRITION Assessment/Plan ASSESSMENT AND PLAN: Pneumonia Infected Decubitus Ulcers h/o C diff colitis Severe Sepsis Lactic Acidosis Chronic Respiratory Failure Cerebral Palsy Parkinsons Anemia - monitor urine output, creatinine - wound care - continue volume assist control - poor candidate for weaning - enteral feeds - DVT/GI prophylaxis - abx as per JUAN HERNANDEZ
--- NOTE | 2019-12-18 08:00 | PN ---
Progress Note, Physician - Current Medication List Current Medications: Active Medications Amino Acids (Prosource No Carb Liquid Pkt) 30 ml GT BID@0800,1730 [facility] Last Admin: 12/17/19 16:54 Dose: 30 ml Documented by: Ascorbic Acid (Vitamin C -) 500 mg PO BID [facility] Last Admin: 12/17/19 22:48 Dose: 500 mg Documented by: Banana Based Medical Food (Banatrol Plus Powder Packet) 1 packet GT TID [facility] Last Admin: 12/18/19 05:23 Dose: Not Given Documented by: Collagenase (Santyl -) 1 applic TP DAILY [facility]; Protocol Last Admin: 12/17/19 11:32 Dose: 1 applic Documented by: Ferrous Sulfate (Feosol) 300 mg GT DAILY [facility] Last Admin: 12/17/19 11:30 Dose: 300 mg Documented by: Heparin Sodium (Porcine) (Heparin -) 5,000 unit SQ BID [facility] Last Admin: 12/17/19 22:48 Dose: 5,000 unit Documented by: Meropenem 1 gm/ Dextrose 100 mls @ 200 mls/hr IVPB Q8H-IV [facility] Last Admin: 12/18/19 02:32 Dose: 200 mls/hr Documented by: Lactobacillus Acidophilus (Bacid -) 1 tab GT DAILY [facility] Last Admin: 12/17/19 11:30 Dose: 1 tab Documented by: Morphine Sulfate (Morphine Sulfate) 2 mg IVPUSH Q4H PRN PRN Reason: PAIN LEVEL 6-10 Multivitamins/Minerals (Certavite-Antioxidant Liquid) 15 ml PO DAILY [facility] Last Admin: 12/17/19 11:32 Dose: 15 ml Documented by: Pantoprazole Sodium (Protonix Iv) 40 mg IVPUSH DAILY [facility] Last Admin: 12/17/19 11:30 Dose: 40 mg Documented by: Triamcinolone Acetonide (Aristocort 0.5% Ointment -) 1 applic TP BID [facility] Last Admin: 12/17/19 22:49 Dose: 1 applic Documented by: Valacyclovir HCl (Valtrex -) 1,000 mg GT BID [facility] Last Admin: 12/17/19 22:49 Dose: 1,000 mg Documented by: - Objective Vital Signs: Vital Signs Temperature 97.8 F 12/18/19 06:00 Pulse Rate 91 H 12/18/19 06:00 Respiratory Rate 18 12/18/19 06:00 Blood Pressure 96/45 L 12/18/19 06:00 O2 Sat by Pulse Oximetry (%) 99 12/18/19 06:00 Labs: CBC, BMP 12/17/19 11:44 12/17/19 11:44 INR, PTT INR 1.73 (0.83-1.09) H 12/09/19 12:34 Assessment/Plan - Problems (1) Pneumonia Assessment/Plan: -Recurrent -IV meropenem -CT chest shows improvement -Pulmonary and ID consult -[facility] vent -Instructed nursing staff to make sure HOB >45 degrees at all times Problems reviewed: Yes Code(s): J18.9 - PNEUMONIA, UNSPECIFIED ORGANISM (2) Sepsis Assessment/Plan: -resolved Problems reviewed: Yes Code(s): A41.9 - SEPSIS, UNSPECIFIED ORGANISM (3) Anemia Assessment/Plan: -Previously TAM -Received PRBC -Continue feosol BID -Iron stores improved -Transfuse only if Hg<7.0 to avoid fluid overload -Injectafer once -AC on hold Problems reviewed: Yes Code(s): D64.9 - ANEMIA, UNSPECIFIED Qualifiers: (4) Cerebral palsy Problems reviewed: Yes Code(s): G80.9 - CEREBRAL PALSY, UNSPECIFIED Qualifiers: (5) Chronic respiratory failure Assessment/Plan: -Mech vent -Pulmonary on board -Bronchodilators -Not a candidate for weaning at this time Problems reviewed: Yes Code(s): J96.10 - CHRONIC RESPIRATORY FAILURE, UNSP W HYPOXIA OR HYPERCAPNIA Qualifiers: (6) Functional quadriplegia Problems reviewed: Yes Code(s): R53.2 - FUNCTIONAL QUADRIPLEGIA (7) Decubital ulcer Assessment/Plan: -Seen by Vascular surgery -s/p debridement -IV abx -WBC improving Problems reviewed: Yes Code(s): L89.90 - PRESSURE ULCER OF UNSPECIFIED SITE, UNSPECIFIED STAGE (8) Severe malnutrition Assessment/Plan: -Prosource -Multivitamin -Vitamin C Problems reviewed: Yes Code(s): E43 - UNSPECIFIED SEVERE PROTEIN-CALORIE MALNUTRITION
[2019-12-18 10:29] LABS: BASO % 0.3 % (0-2.0); EOS % 1.7 % (0-4.5); HEMATOCRIT 23.5 % (35.4-49); HEMOGLOBIN 7.4 GM/dL (11.7-16.9); LYMPH % 11.1 % (8-40); MCH 28.7 pg (25.7-33.7); MCHC 31.7 g/dl (32.0-35.9); MEAN CELL VOLUME 90.5 fl (80-96); MEAN PLT VOLUME 7.3 fl (7.5-11.1); NEUT % 80.9 % (42.8-82.8); PLATELET COUNT 690 K/MM3 (134-434); RDW 17.7 % (11.9-15.9); WHITE BLOOD COUNT 13.5 K/mm3 (4.0-10.0)
[2019-12-18 11:00] LABS: ALBUMIN 0.8 g/dl (3.4-5.0); ALK PHOS 89 U/L (45-117); ANION GAP 4 MMOL/L (8-16); BILIRUBIN,TOTAL 0.2 mg/dL (0.2-1); CHLORIDE 105 mmol/L (98-107); CO2 26 mmol/L (21-32); CREATININE 0.2 mg/dL (0.55-1.3); GLUCOSE,RANDOM 79 mg/dL (74-106); POTASSIUM 4.2 mmol/L (3.5-5.1); SGOT/AST 11 U/L (15-37); SGPT/ALT < 6 U/L (13-61); SODIUM 136 mmol/L (136-145)
[2019-12-18] MEDS: LACTOBACILLUS ACIDOPHILUS 1 TABLET GT SCH (11:06)
[2019-12-18] MEDS: AMINO ACIDS/PROTEIN HYDROLYS 30 ML LIQUID.PKT GT SCH ×2 (11:07→18:12)
[2019-12-18] MEDS: FERROUS SO4 300 MG/5 ML ORAL SOLN UNIT DOSE CUPS GT SCH (11:08)
[2019-12-18] MEDS: HEPARIN NA (PORCINE) 5,000 UNITS/ML 1ML VIAL SQ SCH ×2 (11:08→22:18)
[2019-12-18] MEDS: MULTIVIT-MINERALS ORAL LIQUID PO SCH (11:08)
[2019-12-18] MEDS: valACYclovir HCL 500 MG TABLET (FP) GT SCH ×2 (11:09→22:18)
[2019-12-18] MEDS: ASCORBIC ACID 500 MG TABLET (FP) PO SCH ×2 (11:09→22:18)
[2019-12-18] MEDS: PANTOPRAZOLE SODIUM 40 MG VIAL IVPUSH SCH (11:42)
[2019-12-18] MEDS: TRIAMCINOLONE ACET 0.5% OINT 15 GM TUBE TP SCH ×2 (11:42→22:18)
[2019-12-18] MEDS: COLLAGENASE CLOSTRIDIUM HIST. 30 GRAMS TUBE TP SCH (11:42)
[2019-12-18] MEDS ORDERED: LIDOCAINE HCL 1%, 10 MG/ML (20ML VIAL) ONE (14:15)
[2019-12-18] MEDS ORDERED: PT OWN MED DRAWER 7, Y5N ONE ×2 (22:04→22:19)
[2019-12-19] MEDS ORDERED: MEROPENEM 1 GM VIAL (RESTRICTED TO ID) IVPB ONE ×3 (01:05→16:53)
[2019-12-19] MEDS ORDERED: DEXTROSE 5%-WATER 100 ML IVPB ONE ×3 (01:05→16:53)
[2019-12-19] MEDS: MEROPENEM 1 GM in DEXTROSE 5%-WATER 100 ML IVPB SCH ×3 (01:47→18:14)
[2019-12-19] MEDS ORDERED: PT OWN MED DRAWER 7, Y5N ONE ×2 (05:22→09:42)
[2019-12-19] MEDS: BANATROL PLUS POWDER PACKET GT SCH ×3 (05:30→21:46)
--- NOTE | 2019-12-19 06:40 | PN ---
Progress Note, Physician History of Present Illness: pulmonary no change,poorly responsive on vent support ac mode,-resp distress - Current Medication List Current Medications: Active Medications Amino Acids (Prosource No Carb Liquid Pkt) 30 ml GT BID@0800,1730 [facility] Last Admin: 12/18/19 18:12 Dose: 30 ml Documented by: Ascorbic Acid (Vitamin C -) 500 mg PO BID [facility] Last Admin: 12/18/19 22:18 Dose: 500 mg Documented by: Banana Based Medical Food (Banatrol Plus Powder Packet) 1 packet GT TID [facility] Last Admin: 12/19/19 05:30 Dose: 1 packet Documented by: Collagenase (Santyl -) 1 applic TP DAILY [facility]; Protocol Last Admin: 12/18/19 11:42 Dose: 1 applic Documented by: Ferrous Sulfate (Feosol) 300 mg GT DAILY [facility] Last Admin: 12/18/19 11:08 Dose: Not Given Documented by: Heparin Sodium (Porcine) (Heparin -) 5,000 unit SQ BID [facility] Last Admin: 12/18/19 22:18 Dose: 5,000 unit Documented by: Meropenem 1 gm/ Dextrose 100 mls @ 200 mls/hr IVPB Q8H-IV [facility] Last Admin: 12/19/19 01:47 Dose: 200 mls/hr Documented by: Lactobacillus Acidophilus (Bacid -) 1 tab GT DAILY [facility] Last Admin: 12/18/19 11:06 Dose: Not Given Documented by: Morphine Sulfate (Morphine Sulfate) 2 mg IVPUSH Q4H PRN PRN Reason: PAIN LEVEL 6-10 Multivitamins/Minerals (Certavite-Antioxidant Liquid) 15 ml PO DAILY [facility] Last Admin: 12/18/19 11:08 Dose: Not Given Documented by: Pantoprazole Sodium (Protonix Iv) 40 mg IVPUSH DAILY [facility] Last Admin: 12/18/19 11:42 Dose: 40 mg Documented by: Triamcinolone Acetonide (Aristocort 0.5% Ointment -) 1 applic TP BID [facility] Last Admin: 12/18/19 22:18 Dose: 1 applic Documented by: Valacyclovir HCl (Valtrex -) 1,000 mg GT BID [facility] Last Admin: 12/18/19 22:18 Dose: 1,000 mg Documented by: - Objective Vital Signs: Vital Signs Temperature 98.9 F 12/19/19 05:44 Pulse Rate 107 H 12/19/19 05:44 Respiratory Rate 22 H 12/19/19 05:44 Blood Pressure 91/44 L 12/19/19 05:44 O2 Sat by Pulse Oximetry (%) 98 12/19/19 05:44 Constitutional: Yes: Cachectic, Other (poorly responsive) Eyes: Yes: WNL HENT: Yes: WNL Neck: Yes: Supple (trach) Cardiovascular: Yes: Regular Rate and Rhythm, S1, S2 Respiratory: Yes: Rhonchi (few rhonchi) Gastrointestinal: Yes: Normal Bowel Sounds, Soft Extremities: Yes: Other (contracted) Edema: No Labs: CBC, BMP 12/18/19 09:25 12/18/19 09:25 INR, PTT INR 1.73 (0.83-1.09) H 12/09/19 12:34 Problem List - Problems (1) Lactic acidosis Code(s): E87.2 - ACIDOSIS (2) Pneumonia Code(s): J18.9 - PNEUMONIA, UNSPECIFIED ORGANISM (3) Sepsis Code(s): A41.9 - SEPSIS, UNSPECIFIED ORGANISM (4) Anemia Code(s): D64.9 - ANEMIA, UNSPECIFIED Qualifiers: (5) COPD (chronic obstructive pulmonary disease) Code(s): J44.9 - CHRONIC OBSTRUCTIVE PULMONARY DISEASE, UNSPECIFIED Qualifiers: (6) Cerebral palsy Code(s): G80.9 - CEREBRAL PALSY, UNSPECIFIED Qualifiers: (7) Chronic respiratory failure Code(s): J96.10 - CHRONIC RESPIRATORY FAILURE, UNSP W HYPOXIA OR HYPERCAPNIA Qualifiers: (8) Decubital ulcer Code(s): L89.90 - PRESSURE ULCER OF UNSPECIFIED SITE, UNSPECIFIED STAGE (9) Parkinson disease Code(s): G20 - PARKINSON'S DISEASE (10) Severe malnutrition Code(s): E43 - UNSPECIFIED SEVERE PROTEIN-CALORIE MALNUTRITION Assessment/Plan ASSESSMENT AND PLAN: Pneumonia Infected Decubitus Ulcers h/o C diff colitis Severe Sepsis Lactic Acidosis Chronic Respiratory Failure Cerebral Palsy Parkinsons Anemia - monitor urine output, creatinine - wound care - continue volume assist control - poor candidate for weaning - enteral feeds - DVT/GI prophylaxis - abx as per ID - DR HERNANDEZ
[2019-12-19] MEDS: AMINO ACIDS/PROTEIN HYDROLYS 30 ML LIQUID.PKT GT SCH ×2 (09:57→18:14)
[2019-12-19] MEDS: FERROUS SO4 300 MG/5 ML ORAL SOLN UNIT DOSE CUPS GT SCH (09:57)
[2019-12-19] MEDS: HEPARIN NA (PORCINE) 5,000 UNITS/ML 1ML VIAL SQ SCH ×2 (09:57→21:47)
[2019-12-19] MEDS: ASCORBIC ACID 500 MG TABLET (FP) PO SCH ×2 (09:58→21:46)
[2019-12-19] MEDS: LACTOBACILLUS ACIDOPHILUS 1 TABLET GT SCH (09:58)
[2019-12-19] MEDS: PANTOPRAZOLE SODIUM 40 MG VIAL IVPUSH SCH (09:58)
[2019-12-19] MEDS: COLLAGENASE CLOSTRIDIUM HIST. 30 GRAMS TUBE TP SCH (09:59)
[2019-12-19] MEDS: TRIAMCINOLONE ACET 0.5% OINT 15 GM TUBE TP SCH ×2 (09:59→21:47)
[2019-12-19] MEDS: MULTIVIT-MINERALS ORAL LIQUID PO SCH (09:59)
[2019-12-19] MEDS: valACYclovir HCL 500 MG TABLET (FP) GT SCH ×2 (09:59→21:46)
--- NOTE | 2019-12-19 11:41 | PN ---
Progress Note, Physician - Current Medication List Current Medications: Active Medications Amino Acids (Prosource No Carb Liquid Pkt) 30 ml GT BID@0800,1730 [facility] Last Admin: 12/19/19 09:57 Dose: 30 ml Documented by: Ascorbic Acid (Vitamin C -) 500 mg PO BID [facility] Last Admin: 12/19/19 09:58 Dose: 500 mg Documented by: Banana Based Medical Food (Banatrol Plus Powder Packet) 1 packet GT TID [facility] Last Admin: 12/19/19 05:30 Dose: 1 packet Documented by: Collagenase (Santyl -) 1 applic TP DAILY [facility]; Protocol Last Admin: 12/19/19 09:59 Dose: 1 applic Documented by: Ferrous Sulfate (Feosol) 300 mg GT DAILY [facility] Last Admin: 12/19/19 09:57 Dose: 300 mg Documented by: Heparin Sodium (Porcine) (Heparin -) 5,000 unit SQ BID [facility] Last Admin: 12/19/19 09:57 Dose: 5,000 unit Documented by: Meropenem 1 gm/ Dextrose 100 mls @ 200 mls/hr IVPB Q8H-IV [facility] Last Admin: 12/19/19 09:58 Dose: 200 mls/hr Documented by: Lactobacillus Acidophilus (Bacid -) 1 tab GT DAILY [facility] Last Admin: 12/19/19 09:58 Dose: 1 tab Documented by: Morphine Sulfate (Morphine Sulfate) 2 mg IVPUSH Q4H PRN PRN Reason: PAIN LEVEL 6-10 Multivitamins/Minerals (Certavite-Antioxidant Liquid) 15 ml PO DAILY [facility] Last Admin: 12/19/19 09:59 Dose: 15 ml Documented by: Pantoprazole Sodium (Protonix Iv) 40 mg IVPUSH DAILY [facility] Last Admin: 12/19/19 09:58 Dose: 40 mg Documented by: Triamcinolone Acetonide (Aristocort 0.5% Ointment -) 1 applic TP BID [facility] Last Admin: 12/19/19 09:59 Dose: 1 applic Documented by: Valacyclovir HCl (Valtrex -) 1,000 mg GT BID [facility] Last Admin: 12/19/19 09:59 Dose: 1,000 mg Documented by: - Objective Vital Signs: Vital Signs Temperature 97.9 F 12/19/19 09:45 Pulse Rate 108 H 12/19/19 09:45 Respiratory Rate 24 H 12/19/19 09:45 Blood Pressure 105/55 L 12/19/19 09:45 O2 Sat by Pulse Oximetry (%) 100 12/19/19 09:45 Cardiovascular: Yes: S1, S2 Respiratory: Yes: Mechanically Ventilated Gastrointestinal: Yes: Normal Bowel Sounds, Soft Labs: CBC, BMP 12/18/19 09:25 12/18/19 09:25 INR, PTT INR 1.73 (0.83-1.09) H 12/09/19 12:34 Assessment/Plan - Problems (1) Pneumonia Assessment/Plan: -Recurrent -IV meropenem -CT chest shows improvement -Pulmonary and ID consult -Mech vent -Instructed nursing staff to make sure HOB >45 degrees at all times Problems reviewed: Yes Code(s): J18.9 - PNEUMONIA, UNSPECIFIED ORGANISM (2) Sepsis Assessment/Plan: -resolved Problems reviewed: Yes Code(s): A41.9 - SEPSIS, UNSPECIFIED ORGANISM (3) Anemia Assessment/Plan: -Previously TAM -Received PRBC -Continue feosol BID -Iron stores improved -Transfuse only if Hg<7.0 to avoid fluid overload -Injectafer once -AC on hold Problems reviewed: Yes Code(s): D64.9 - ANEMIA, UNSPECIFIED Qualifiers: (4) Cerebral palsy Problems reviewed: Yes Code(s): G80.9 - CEREBRAL PALSY, UNSPECIFIED Qualifiers: (5) Chronic respiratory failure Assessment/Plan: -Mech vent -Pulmonary on board -Bronchodilators -Not a candidate for weaning at this time Problems reviewed: Yes Code(s): J96.10 - CHRONIC RESPIRATORY FAILURE, UNSP W HYPOXIA OR HYPERCAPNIA Qualifiers: (6) Functional quadriplegia Problems reviewed: Yes Code(s): R53.2 - FUNCTIONAL QUADRIPLEGIA (7) Decubital ulcer Assessment/Plan: -Seen by Vascular surgery -s/p debridement -IV abx -WBC improving Problems reviewed: Yes Code(s): L89.90 - PRESSURE ULCER OF UNSPECIFIED SITE, UNSPECIFIED STAGE (8) Severe malnutrition Assessment/Plan: -Prosource -Multivitamin -Vitamin C Problems reviewed: Yes Code(s): E43 - UNSPECIFIED SEVERE PROTEIN-CALORIE MALNUTRITION
[2019-12-20] MEDS ORDERED: MEROPENEM 1 GM VIAL (RESTRICTED TO ID) IVPB ONE ×3 (00:20→18:14)
[2019-12-20] MEDS ORDERED: DEXTROSE 5%-WATER 100 ML IVPB ONE ×3 (00:20→18:14)
[2019-12-20] MEDS: MEROPENEM 1 GM in DEXTROSE 5%-WATER 100 ML IVPB SCH ×3 (01:33→18:27)
[2019-12-20] MEDS: BANATROL PLUS POWDER PACKET GT SCH ×3 (05:08→21:54)
--- NOTE | 2019-12-20 07:01 | PN ---
Progress Note, Physician History of Present Illness: pulmonary no change ,unresponsive on vent support ac mode - Current Medication List Current Medications: Active Medications Amino Acids (Prosource No Carb Liquid Pkt) 30 ml GT BID@0800,1730 [facility] Last Admin: 12/19/19 18:14 Dose: 30 ml Documented by: Ascorbic Acid (Vitamin C -) 500 mg PO BID [facility] Last Admin: 12/19/19 21:46 Dose: 500 mg Documented by: Banana Based Medical Food (Banatrol Plus Powder Packet) 1 packet GT TID [facility] Last Admin: 12/20/19 05:08 Dose: 1 packet Documented by: Collagenase (Santyl -) 1 applic TP DAILY [facility]; Protocol Last Admin: 12/19/19 09:59 Dose: 1 applic Documented by: Ferrous Sulfate (Feosol) 300 mg GT DAILY [facility] Last Admin: 12/19/19 09:57 Dose: 300 mg Documented by: Heparin Sodium (Porcine) (Heparin -) 5,000 unit SQ BID [facility] Last Admin: 12/19/19 21:47 Dose: 5,000 unit Documented by: Meropenem 1 gm/ Dextrose 100 mls @ 200 mls/hr IVPB Q8H-IV [facility] Last Admin: 12/20/19 01:33 Dose: 200 mls/hr Documented by: Lactobacillus Acidophilus (Bacid -) 1 tab GT DAILY [facility] Last Admin: 12/19/19 09:58 Dose: 1 tab Documented by: Multivitamins/Minerals (Certavite-Antioxidant Liquid) 15 ml PO DAILY [facility] Last Admin: 12/19/19 09:59 Dose: 15 ml Documented by: Pantoprazole Sodium (Protonix Iv) 40 mg IVPUSH DAILY [facility] Last Admin: 12/19/19 09:58 Dose: 40 mg Documented by: Triamcinolone Acetonide (Aristocort 0.5% Ointment -) 1 applic TP BID [facility] Last Admin: 12/19/19 21:47 Dose: 1 applic Documented by: Valacyclovir HCl (Valtrex -) 1,000 mg GT BID [facility] Last Admin: 12/19/19 21:46 Dose: 1,000 mg Documented by: - Objective Vital Signs: Vital Signs Temperature 98.1 F 12/20/19 05:07 Pulse Rate 94 H 12/20/19 05:07 Respiratory Rate 19 12/20/19 05:21 Blood Pressure 109/58 L 12/20/19 05:07 O2 Sat by Pulse Oximetry (%) 100 12/20/19 05:21 Constitutional: Yes: Cachectic, Other (unresponsive) HENT: Yes: WNL Neck: Yes: Supple (trach) Respiratory: Yes: Diminished Gastrointestinal: Yes: Normal Bowel Sounds, Soft Extremities: Yes: Other (contracted) Edema: No Edema: LUE: Trace, RUE: Trace, LLE: Trace, RLE: Trace Labs: CBC, BMP Problem List - Problems (1) Lactic acidosis Code(s): E87.2 - ACIDOSIS (2) Pneumonia Code(s): J18.9 - PNEUMONIA, UNSPECIFIED ORGANISM (3) Sepsis Code(s): A41.9 - SEPSIS, UNSPECIFIED ORGANISM (4) Anemia Code(s): D64.9 - ANEMIA, UNSPECIFIED Qualifiers: (5) COPD (chronic obstructive pulmonary disease) Code(s): J44.9 - CHRONIC OBSTRUCTIVE PULMONARY DISEASE, UNSPECIFIED Qualifiers: (6) Cerebral palsy Code(s): G80.9 - CEREBRAL PALSY, UNSPECIFIED Qualifiers: (7) Chronic respiratory failure Code(s): J96.10 - CHRONIC RESPIRATORY FAILURE, UNSP W HYPOXIA OR HYPERCAPNIA Qualifiers: (8) Decubital ulcer Code(s): L89.90 - PRESSURE ULCER OF UNSPECIFIED SITE, UNSPECIFIED STAGE (9) Parkinson disease Code(s): G20 - PARKINSON'S DISEASE (10) Severe malnutrition Code(s): E43 - UNSPECIFIED SEVERE PROTEIN-CALORIE MALNUTRITION Assessment/Plan ASSESSMENT AND PLAN: Pneumonia Infected Decubitus Ulcers h/o C diff colitis Severe Sepsis Lactic Acidosis Chronic Respiratory Failure Cerebral Palsy Parkinsons Anemia - monitor urine output, creatinine - wound care - continue volume assist control - poor candidate for weaning - enteral feeds - DVT/GI prophylaxis - abx as per JUAN - DR HERNANDEZ
[2019-12-20] MEDS ORDERED: PT OWN MED DRAWER 7, Y5N ONE ×4 (10:12→20:51)
[2019-12-20] MEDS: TRIAMCINOLONE ACET 0.5% OINT 15 GM TUBE TP SCH ×2 (10:37→21:55)
[2019-12-20] MEDS: AMINO ACIDS/PROTEIN HYDROLYS 30 ML LIQUID.PKT GT SCH ×2 (10:37→18:27)
[2019-12-20] MEDS: LACTOBACILLUS ACIDOPHILUS 1 TABLET GT SCH (10:38)
[2019-12-20] MEDS: ASCORBIC ACID 500 MG TABLET (FP) PO SCH ×2 (10:38→21:54)
[2019-12-20] MEDS: HEPARIN NA (PORCINE) 5,000 UNITS/ML 1ML VIAL SQ SCH ×2 (10:38→21:54)
[2019-12-20] MEDS: FERROUS SO4 300 MG/5 ML ORAL SOLN UNIT DOSE CUPS GT SCH (10:39)
[2019-12-20] MEDS: PANTOPRAZOLE SODIUM 40 MG VIAL IVPUSH SCH (10:40)
--- NOTE | 2019-12-20 11:10 | PN ---
Progress Note, Physician - Current Medication List Current Medications: Active Medications Amino Acids (Prosource No Carb Liquid Pkt) 30 ml GT BID@0800,1730 [facility] Last Admin: 12/20/19 10:37 Dose: 30 ml Documented by: Ascorbic Acid (Vitamin C -) 500 mg PO BID [facility] Last Admin: 12/20/19 10:38 Dose: 500 mg Documented by: Banana Based Medical Food (Banatrol Plus Powder Packet) 1 packet GT TID [facility] Last Admin: 12/20/19 05:08 Dose: 1 packet Documented by: Collagenase (Santyl -) 1 applic TP DAILY [facility]; Protocol Last Admin: 12/19/19 09:59 Dose: 1 applic Documented by: Ferrous Sulfate (Feosol) 300 mg GT DAILY [facility] Last Admin: 12/20/19 10:39 Dose: 300 mg Documented by: Heparin Sodium (Porcine) (Heparin -) 5,000 unit SQ BID [facility] Last Admin: 12/20/19 10:38 Dose: 5,000 unit Documented by: Meropenem 1 gm/ Dextrose 100 mls @ 200 mls/hr IVPB Q8H-IV [facility] Last Admin: 12/20/19 10:37 Dose: 200 mls/hr Documented by: Lactobacillus Acidophilus (Bacid -) 1 tab GT DAILY [facility] Last Admin: 12/20/19 10:38 Dose: 1 tab Documented by: Multivitamins/Minerals (Certavite-Antioxidant Liquid) 15 ml PO DAILY [facility] Last Admin: 12/19/19 09:59 Dose: 15 ml Documented by: Pantoprazole Sodium (Protonix Iv) 40 mg IVPUSH DAILY [facility] Last Admin: 12/20/19 10:40 Dose: 40 mg Documented by: Triamcinolone Acetonide (Aristocort 0.5% Ointment -) 1 applic TP BID [facility] Last Admin: 12/20/19 10:37 Dose: 1 applic Documented by: Valacyclovir HCl (Valtrex -) 1,000 mg GT BID [facility] Last Admin: 12/19/19 21:46 Dose: 1,000 mg Documented by: - Objective Vital Signs: Vital Signs Temperature 98.1 F 12/20/19 05:07 Pulse Rate 94 H 12/20/19 05:07 Respiratory Rate 17 12/20/19 08:40 Blood Pressure 109/58 L 12/20/19 05:07 O2 Sat by Pulse Oximetry (%) 100 09/06/20 08:40 Cardiovascular: Yes: S1, S2 Respiratory: Yes: Mechanically Ventilated Gastrointestinal: Yes: Normal Bowel Sounds, Soft Labs: CBC, BMP 12/18/19 09:25 12/18/19 09:25 INR, PTT INR 1.73 (0.83-1.09) H 12/09/19 12:34 Assessment/Plan - Problems (1) Pneumonia Assessment/Plan: -Recurrent -IV meropenem -CT chest shows improvement -Pulmonary and ID consult -Mech vent -Instructed nursing staff to make sure HOB >45 degrees at all times Problems reviewed: Yes Code(s): J18.9 - PNEUMONIA, UNSPECIFIED ORGANISM (2) Sepsis Assessment/Plan: -resolved Problems reviewed: Yes Code(s): A41.9 - SEPSIS, UNSPECIFIED ORGANISM (3) Anemia Assessment/Plan: -Previously TAM -Received PRBC -Continue feosol BID -Iron stores improved -Transfuse only if Hg<7.0 to avoid fluid overload -Injectafer once -AC on hold Problems reviewed: Yes Code(s): D64.9 - ANEMIA, UNSPECIFIED Qualifiers: (4) Cerebral palsy Problems reviewed: Yes Code(s): G80.9 - CEREBRAL PALSY, UNSPECIFIED Qualifiers: (5) Chronic respiratory failure Assessment/Plan: -Mech vent -Pulmonary on board -Bronchodilators -Not a candidate for weaning at this time Problems reviewed: Yes Code(s): J96.10 - CHRONIC RESPIRATORY FAILURE, UNSP W HYPOXIA OR HYPERCAPNIA Qualifiers: (6) Functional quadriplegia Problems reviewed: Yes Code(s): R53.2 - FUNCTIONAL QUADRIPLEGIA (7) Decubital ulcer Assessment/Plan: -Seen by Vascular surgery -s/p debridement -IV abx -WBC improving Problems reviewed: Yes Code(s): L89.90 - PRESSURE ULCER OF UNSPECIFIED SITE, UNSPECIFIED STAGE (8) Severe malnutrition Assessment/Plan: -Prosource -Multivitamin -Vitamin C Problems reviewed: Yes Code(s): E43 - UNSPECIFIED SEVERE PROTEIN-CALORIE MALNUTRITION
[2019-12-20] MEDS: COLLAGENASE CLOSTRIDIUM HIST. 30 GRAMS TUBE TP SCH (11:26)
[2019-12-20] MEDS: MULTIVIT-MINERALS ORAL LIQUID PO SCH (11:26)
[2019-12-20] MEDS: valACYclovir HCL 500 MG TABLET (FP) GT SCH ×2 (11:27→21:55)
[2019-12-20] MEDS: SODIUM CHLORIDE 1,000 ML IV SCH ×2 (12:35→22:23)
[2019-12-21] MEDS ORDERED: MEROPENEM 1 GM VIAL (RESTRICTED TO ID) IVPB ONE ×3 (00:48→17:13)
[2019-12-21] MEDS ORDERED: DEXTROSE 5%-WATER 100 ML IVPB ONE ×3 (00:48→17:13)
[2019-12-21] MEDS: MEROPENEM 1 GM in DEXTROSE 5%-WATER 100 ML IVPB SCH ×3 (01:30→17:22)
[2019-12-21] MEDS: BANATROL PLUS POWDER PACKET GT SCH ×3 (05:26→21:50)
[2019-12-21] MEDS ORDERED: PT OWN MED DRAWER 7, Y5N ONE ×3 (05:28→21:37)
--- NOTE | 2019-12-21 09:06 | PN ---
Progress Note, Physician History of Present Illness: PULMONARY NO CHANGE,POORLY RESPONSIVE ON VENT SUPPORT AC MODE - Current Medication List Current Medications: Active Medications Amino Acids (Prosource No Carb Liquid Pkt) 30 ml GT BID@0800,1730 [facility] Last Admin: 12/20/19 18:27 Dose: 30 ml Documented by: Ascorbic Acid (Vitamin C -) 500 mg PO BID [facility] Last Admin: 12/20/19 21:54 Dose: 500 mg Documented by: Banana Based Medical Food (Banatrol Plus Powder Packet) 1 packet GT TID [facility] Last Admin: 12/21/19 05:26 Dose: 1 packet Documented by: Collagenase (Santyl -) 1 applic TP DAILY [facility]; Protocol Last Admin: 12/20/19 11:26 Dose: 1 applic Documented by: Ferrous Sulfate (Feosol) 300 mg GT DAILY [facility] Last Admin: 12/20/19 10:39 Dose: 300 mg Documented by: Heparin Sodium (Porcine) (Heparin -) 5,000 unit SQ BID [facility] Last Admin: 12/20/19 21:54 Dose: 5,000 unit Documented by: Meropenem 1 gm/ Dextrose 100 mls @ 200 mls/hr IVPB Q8H-IV [facility] Last Admin: 12/21/19 01:30 Dose: 200 mls/hr Documented by: Sodium Chloride (Normal Saline -) 1,000 mls @ 100 mls/hr IV ASDIR [facility] Last Admin: 12/20/19 22:23 Dose: 100 mls/hr Documented by: Lactobacillus Acidophilus (Bacid -) 1 tab GT DAILY [facility] Last Admin: 12/20/19 10:38 Dose: 1 tab Documented by: Multivitamins/Minerals (Certavite-Antioxidant Liquid) 15 ml PO DAILY [facility] Last Admin: 12/20/19 11:26 Dose: 15 ml Documented by: Pantoprazole Sodium (Protonix Iv) 40 mg IVPUSH DAILY [facility] Last Admin: 12/20/19 10:40 Dose: 40 mg Documented by: Triamcinolone Acetonide (Aristocort 0.5% Ointment -) 1 applic TP BID [facility] Last Admin: 12/20/19 21:55 Dose: 1 applic Documented by: Valacyclovir HCl (Valtrex -) 1,000 mg GT BID [facility] Last Admin: 12/20/19 21:55 Dose: 1,000 mg Documented by: Vancomycin HCl (Vancomycin Oral Solution) 250 mg PO Q6HPO [facility] - Objective Vital Signs: Vital Signs Temperature 98.2 F 12/21/19 05:52 Pulse Rate 101 H 12/21/19 05:52 Respiratory Rate 16 12/21/19 05:52 Blood Pressure 96/53 L 12/21/19 05:52 O2 Sat by Pulse Oximetry (%) 99 12/21/19 05:52 Constitutional: Yes: Cachectic, Other (POORLY RESPONSIVE) Eyes: Yes: WNL HENT: Yes: WNL Neck: Yes: WNL Cardiovascular: Yes: Regular Rate and Rhythm, S1, S2 Respiratory: Yes: Diminished Gastrointestinal: Yes: Normal Bowel Sounds, Soft Extremities: Yes: Other (CONTRACTED) Edema: No Labs: CBC, BMP Problem List - Problems (1) Lactic acidosis Code(s): E87.2 - ACIDOSIS (2) Pneumonia Code(s): J18.9 - PNEUMONIA, UNSPECIFIED ORGANISM (3) Sepsis Code(s): A41.9 - SEPSIS, UNSPECIFIED ORGANISM (4) Anemia Code(s): D64.9 - ANEMIA, UNSPECIFIED Qualifiers: (5) COPD (chronic obstructive pulmonary disease) Code(s): J44.9 - CHRONIC OBSTRUCTIVE PULMONARY DISEASE, UNSPECIFIED Qualifiers: (6) Cerebral palsy Code(s): G80.9 - CEREBRAL PALSY, UNSPECIFIED Qualifiers: (7) Chronic respiratory failure Code(s): J96.10 - CHRONIC RESPIRATORY FAILURE, UNSP W HYPOXIA OR HYPERCAPNIA Qualifiers: (8) Decubital ulcer Code(s): L89.90 - PRESSURE ULCER OF UNSPECIFIED SITE, UNSPECIFIED STAGE (9) Parkinson disease Code(s): G20 - PARKINSON'S DISEASE (10) Severe malnutrition Code(s): E43 - UNSPECIFIED SEVERE PROTEIN-CALORIE MALNUTRITION Assessment/Plan ASSESSMENT AND PLAN: Pneumonia Infected Decubitus Ulcers h/o C diff colitis Severe Sepsis Lactic Acidosis Chronic Respiratory Failure Cerebral Palsy Parkinsons Anemia - monitor urine output, creatinine - wound care - continue volume assist control - poor candidate for weaning - enteral feeds - DVT/GI prophylaxis - abx as per ID - DR HERNANDEZ
[2019-12-21 09:18] LABS: BASO % 0.7 % (0-2.0); EOS % 2.1 % (0-4.5); HEMATOCRIT 24.5 % (35.4-49); HEMOGLOBIN 7.8 GM/dL (11.7-16.9); LYMPH % 7.8 % (8-40); MCH 28.9 pg (25.7-33.7); MCHC 31.8 g/dl (32.0-35.9); MEAN CELL VOLUME 90.6 fl (80-96); MEAN PLT VOLUME 7.3 fl (7.5-11.1); MONO % 6.4 % (3.8-10.2); PLATELET COUNT 798 K/MM3 (134-434); RDW 17.6 % (11.9-15.9); WHITE BLOOD COUNT 16.4 K/mm3 (4.0-10.0)
--- NOTE | 2019-12-21 09:19 | PN ---
Progress Note (short form) - Note Progress Note: no fevers trach to vent Vital Signs Period Temp Pulse Resp BP Sys/Gomez Pulse Ox Last 24 Hr 97.6 F-100.4 F 95-102 12-22 85-106/42-53 99-100 cor-rrr llungs decreased bs at bases abd soft, nt ext contracted, multiple decubiti chest ct- improved left cavitary infiltrate a/p sepsis cavitary pneumonia RUL, left lung pneumonia infected decubiti abdominal wall cellulitis-resolving history of cdiff on po vancomycin ISOLATE vre isolation- no need to treat urine isolate-continue isolation overall prognosis is poor ?zoster left flank- on valtrex via gt day #7/7 continue meropenem day #11-improved cavitary pneumonia improved- consider picc line and continued iv meropenem at the [facility] for another 10 days continue po vancomycin for duration of bs abx then vanco taper
[2019-12-21 09:21] LABS: ALBUMIN 0.8 g/dl (3.4-5.0); BILIRUBIN,TOTAL 0.2 mg/dL (0.2-1); BLOOD UREA NITROGEN 14.5 mg/dL (7-18); CREATININE 0.2 mg/dL (0.55-1.3); POTASSIUM 4.3 mmol/L (3.5-5.1); TOT PROT 6.3 g/dl (6.4-8.2)
--- NOTE | 2019-12-21 11:20 | PN ---
Progress Note, Physician - Current Medication List Current Medications: Active Medications Amino Acids (Prosource No Carb Liquid Pkt) 30 ml GT BID@0800,1730 [facility] Last Admin: 12/20/19 18:27 Dose: 30 ml Documented by: Ascorbic Acid (Vitamin C -) 500 mg PO BID [facility] Last Admin: 12/20/19 21:54 Dose: 500 mg Documented by: Banana Based Medical Food (Banatrol Plus Powder Packet) 1 packet GT TID [facility] Last Admin: 12/21/19 05:26 Dose: 1 packet Documented by: Collagenase (Santyl -) 1 applic TP DAILY [facility]; Protocol Last Admin: 12/20/19 11:26 Dose: 1 applic Documented by: Ferrous Sulfate (Feosol) 300 mg GT DAILY [facility] Last Admin: 12/20/19 10:39 Dose: 300 mg Documented by: Heparin Sodium (Porcine) (Heparin -) 5,000 unit SQ BID [facility] Last Admin: 12/20/19 21:54 Dose: 5,000 unit Documented by: Meropenem 1 gm/ Dextrose 100 mls @ 200 mls/hr IVPB Q8H-IV [facility] Last Admin: 12/21/19 01:30 Dose: 200 mls/hr Documented by: Sodium Chloride (Normal Saline -) 1,000 mls @ 100 mls/hr IV ASDIR [facility] Last Admin: 12/20/19 22:23 Dose: 100 mls/hr Documented by: Lactobacillus Acidophilus (Bacid -) 1 tab GT DAILY [facility] Last Admin: 12/20/19 10:38 Dose: 1 tab Documented by: Multivitamins/Minerals (Certavite-Antioxidant Liquid) 15 ml PO DAILY [facility] Last Admin: 12/20/19 11:26 Dose: 15 ml Documented by: Pantoprazole Sodium (Protonix Iv) 40 mg IVPUSH DAILY [facility] Last Admin: 12/20/19 10:40 Dose: 40 mg Documented by: Triamcinolone Acetonide (Aristocort 0.5% Ointment -) 1 applic TP BID [facility] Last Admin: 12/20/19 21:55 Dose: 1 applic Documented by: Vancomycin HCl (Vancomycin Oral Solution) 125 mg PO Q6HPO [facility] - Objective Vital Signs: Vital Signs Temperature 98.2 F 12/21/19 05:52 Pulse Rate 107 H 12/21/19 08:43 Respiratory Rate 16 12/21/19 08:43 Blood Pressure 96/53 L 12/21/19 05:52 O2 Sat by Pulse Oximetry (%) 100 12/21/19 08:43 Cardiovascular: Yes: S1, S2 Respiratory: Yes: Mechanically Ventilated Gastrointestinal: Yes: Normal Bowel Sounds, Soft. No: Tenderness Labs: CBC, BMP 12/21/19 08:40 12/21/19 08:40 INR, PTT INR 1.73 (0.83-1.09) H 12/09/19 12:34 Assessment/Plan - Problems (1) Pneumonia Assessment/Plan: -Recurrent -OFF IV ABX -CT chest shows improvement -Pulmonary and ID consult -Mech vent -Instructed nursing staff to make sure HOB >45 degrees at all times Problems reviewed: Yes Code(s): J18.9 - PNEUMONIA, UNSPECIFIED ORGANISM (2) Sepsis Assessment/Plan: -resolved Problems reviewed: Yes Code(s): A41.9 - SEPSIS, UNSPECIFIED ORGANISM (3) Anemia Assessment/Plan: -Previously TAM -Received PRBC -Continue feosol BID -Iron stores improved -Transfuse only if Hg<7.0 to avoid fluid overload -Injectafer once -AC on hold Problems reviewed: Yes Code(s): D64.9 - ANEMIA, UNSPECIFIED Qualifiers: (4) Cerebral palsy Problems reviewed: Yes Code(s): G80.9 - CEREBRAL PALSY, UNSPECIFIED Qualifiers: (5) Chronic respiratory failure Assessment/Plan: -Mech vent -Pulmonary on board -Bronchodilators -Not a candidate for weaning at this time Problems reviewed: Yes Code(s): J96.10 - CHRONIC RESPIRATORY FAILURE, UNSP W HYPOXIA OR HYPERCAPNIA Qualifiers: (6) Functional quadriplegia Problems reviewed: Yes Code(s): R53.2 - FUNCTIONAL QUADRIPLEGIA (7) Decubital ulcer Assessment/Plan: -Seen by Vascular surgery -s/p debridement Problems reviewed: Yes Code(s): L89.90 - PRESSURE ULCER OF UNSPECIFIED SITE, UNSPECIFIED STAGE (8) Severe malnutrition Assessment/Plan: -Prosource -Multivitamin -Vitamin C Problems reviewed: Yes Code(s): E43 - UNSPECIFIED SEVERE PROTEIN-CALORIE MALNUTRITION
[2019-12-21] MEDS ORDERED: VANCOMYCIN 250 MG/5 ML ORAL SOLUTION PO SCH (12:00)
[2019-12-21] MEDS: ASCORBIC ACID 500 MG TABLET (FP) PO SCH ×2 (12:47→21:50)
[2019-12-21] MEDS: valACYclovir HCL 500 MG TABLET (FP) GT SCH (12:47)
[2019-12-21] MEDS: LACTOBACILLUS ACIDOPHILUS 1 TABLET GT SCH (12:47)
[2019-12-21] MEDS: VANCOMYCIN 250 MG/5 ML ORAL SOLUTION PO SCH ×2 (12:49→17:22)
[2019-12-21] MEDS: HEPARIN NA (PORCINE) 5,000 UNITS/ML 1ML VIAL SQ SCH ×2 (12:49→21:50)
[2019-12-21] MEDS: COLLAGENASE CLOSTRIDIUM HIST. 30 GRAMS TUBE TP SCH (12:49)
[2019-12-21] MEDS: FERROUS SO4 300 MG/5 ML ORAL SOLN UNIT DOSE CUPS GT SCH (12:50)
[2019-12-21] MEDS: TRIAMCINOLONE ACET 0.5% OINT 15 GM TUBE TP SCH ×2 (12:50→21:50)
[2019-12-21] MEDS: MULTIVIT-MINERALS ORAL LIQUID PO SCH (12:50)
[2019-12-21] MEDS: PANTOPRAZOLE SODIUM 40 MG VIAL IVPUSH SCH (12:51)
[2019-12-21] MEDS: AMINO ACIDS/PROTEIN HYDROLYS 30 ML LIQUID.PKT GT SCH (15:36)
[2019-12-21] MEDS: SODIUM CHLORIDE 1,000 ML IV SCH (15:59)
[2019-12-22] MEDS: VANCOMYCIN 250 MG/5 ML ORAL SOLUTION PO SCH ×4 (00:53→17:40)
[2019-12-22] MEDS ORDERED: MEROPENEM 1 GM VIAL (RESTRICTED TO ID) IVPB ONE ×3 (00:54→17:27)
[2019-12-22] MEDS ORDERED: DEXTROSE 5%-WATER 100 ML IVPB ONE ×3 (00:54→17:28)
[2019-12-22] MEDS: MEROPENEM 1 GM in DEXTROSE 5%-WATER 100 ML IVPB SCH ×3 (01:01→17:39)
[2019-12-22] MEDS: SODIUM CHLORIDE 1,000 ML IV SCH ×2 (04:41→15:26)
[2019-12-22] MEDS: BANATROL PLUS POWDER PACKET GT SCH ×3 (05:26→22:10)
--- NOTE | 2019-12-22 07:50 | PN ---
Progress Note, Physician History of Present Illness: pulmonary no change,poorly responsive on vent support ac mode - Current Medication List Current Medications: Active Medications Amino Acids (Prosource No Carb Liquid Pkt) 30 ml GT DAILY@0800 [facility] Ascorbic Acid (Vitamin C -) 500 mg PO BID [facility] Last Admin: 12/21/19 21:50 Dose: 500 mg Documented by: Banana Based Medical Food (Banatrol Plus Powder Packet) 1 packet GT TID [facility] Last Admin: 12/22/19 05:26 Dose: 1 packet Documented by: Collagenase (Santyl -) 1 applic TP DAILY [facility]; Protocol Last Admin: 12/21/19 12:49 Dose: 1 applic Documented by: Ferrous Sulfate (Feosol) 300 mg GT DAILY [facility] Last Admin: 12/21/19 12:50 Dose: 300 mg Documented by: Heparin Sodium (Porcine) (Heparin -) 5,000 unit SQ BID [facility] Last Admin: 12/21/19 21:50 Dose: 5,000 unit Documented by: Meropenem 1 gm/ Dextrose 100 mls @ 200 mls/hr IVPB Q8H-IV [facility] Last Admin: 12/22/19 01:01 Dose: 200 mls/hr Documented by: Sodium Chloride (Normal Saline -) 1,000 mls @ 100 mls/hr IV ASDIR [facility] Last Admin: 12/22/19 04:41 Dose: 100 mls/hr Documented by: Lactobacillus Acidophilus (Bacid -) 1 tab GT DAILY [facility] Last Admin: 12/21/19 12:47 Dose: 1 tab Documented by: Multivitamins/Minerals (Certavite-Antioxidant Liquid) 15 ml PO DAILY [facility] Last Admin: 12/21/19 12:50 Dose: 15 ml Documented by: Pantoprazole Sodium (Protonix Iv) 40 mg IVPUSH DAILY [facility] Last Admin: 12/21/19 12:51 Dose: 40 mg Documented by: Triamcinolone Acetonide (Aristocort 0.5% Ointment -) 1 applic TP BID [facility] Last Admin: 12/21/19 21:50 Dose: 1 applic Documented by: Vancomycin HCl (Vancomycin Oral Solution) 125 mg PO Q6HPO [facility] Last Admin: 12/22/19 05:27 Dose: 125 mg Documented by: - Objective Vital Signs: Vital Signs Temperature 98.4 F 12/22/19 06:00 Pulse Rate 108 H 12/22/19 06:00 Respiratory Rate 22 H 12/22/19 06:00 Blood Pressure 110/65 12/22/19 06:00 O2 Sat by Pulse Oximetry (%) 98 12/22/19 06:00 Constitutional: Yes: Cachectic, Other (poorly responsive) Eyes: Yes: WNL HENT: Yes: WNL Neck: Yes: Supple (trach) Cardiovascular: Yes: Regular Rate and Rhythm, S1, S2 Respiratory: Yes: Rhonchi (few rhonchi) Gastrointestinal: Yes: Normal Bowel Sounds, Soft Extremities: Yes: Other (contracted) Edema: No Labs: Problem List - Problems (1) Lactic acidosis Code(s): E87.2 - ACIDOSIS (2) Pneumonia Code(s): J18.9 - PNEUMONIA, UNSPECIFIED ORGANISM (3) Sepsis Code(s): A41.9 - SEPSIS, UNSPECIFIED ORGANISM (4) Anemia Code(s): D64.9 - ANEMIA, UNSPECIFIED Qualifiers: (5) COPD (chronic obstructive pulmonary disease) Code(s): J44.9 - CHRONIC OBSTRUCTIVE PULMONARY DISEASE, UNSPECIFIED Qualifiers: (6) Cerebral palsy Code(s): G80.9 - CEREBRAL PALSY, UNSPECIFIED Qualifiers: (7) Chronic respiratory failure Code(s): J96.10 - CHRONIC RESPIRATORY FAILURE, UNSP W HYPOXIA OR HYPERCAPNIA Qualifiers: (8) Decubital ulcer Code(s): L89.90 - PRESSURE ULCER OF UNSPECIFIED SITE, UNSPECIFIED STAGE (9) Parkinson disease Code(s): G20 - PARKINSON'S DISEASE (10) Severe malnutrition Code(s): E43 - UNSPECIFIED SEVERE PROTEIN-CALORIE MALNUTRITION Assessment/Plan ASSESSMENT AND PLAN: Pneumonia Infected Decubitus Ulcers h/o C diff colitis Severe Sepsis Chronic Respiratory Failure Cerebral Palsy Parkinsons Anemia - monitor urine output, creatinine - wound care - continue volume assist control - poor candidate for weaning - enteral feeds - DVT/GI prophylaxis - abx as per JUAN - DR HERNANDEZ
--- NOTE | 2019-12-22 08:59 | PN ---
Progress Note, Physician - Current Medication List Current Medications: Active Medications Amino Acids (Prosource No Carb Liquid Pkt) 30 ml GT DAILY@0800 [facility] Ascorbic Acid (Vitamin C -) 500 mg PO BID [facility] Last Admin: 12/21/19 21:50 Dose: 500 mg Documented by: Banana Based Medical Food (Banatrol Plus Powder Packet) 1 packet GT TID [facility] Last Admin: 12/22/19 05:26 Dose: 1 packet Documented by: Collagenase (Santyl -) 1 applic TP DAILY [facility]; Protocol Last Admin: 12/21/19 12:49 Dose: 1 applic Documented by: Ferrous Sulfate (Feosol) 300 mg GT DAILY [facility] Last Admin: 12/21/19 12:50 Dose: 300 mg Documented by: Heparin Sodium (Porcine) (Heparin -) 5,000 unit SQ BID [facility] Last Admin: 12/21/19 21:50 Dose: 5,000 unit Documented by: Meropenem 1 gm/ Dextrose 100 mls @ 200 mls/hr IVPB Q8H-IV [facility] Last Admin: 12/22/19 01:01 Dose: 200 mls/hr Documented by: Sodium Chloride (Normal Saline -) 1,000 mls @ 100 mls/hr IV ASDIR [facility] Last Admin: 12/22/19 04:41 Dose: 100 mls/hr Documented by: Lactobacillus Acidophilus (Bacid -) 1 tab GT DAILY [facility] Last Admin: 12/21/19 12:47 Dose: 1 tab Documented by: Multivitamins/Minerals (Certavite-Antioxidant Liquid) 15 ml PO DAILY [facility] Last Admin: 12/21/19 12:50 Dose: 15 ml Documented by: Pantoprazole Sodium (Protonix Iv) 40 mg IVPUSH DAILY [facility] Last Admin: 12/21/19 12:51 Dose: 40 mg Documented by: Triamcinolone Acetonide (Aristocort 0.5% Ointment -) 1 applic TP BID [facility] Last Admin: 12/21/19 21:50 Dose: 1 applic Documented by: Vancomycin HCl (Vancomycin Oral Solution) 125 mg PO Q6HPO [facility] Last Admin: 12/22/19 05:27 Dose: 125 mg Documented by: - Objective Vital Signs: Vital Signs Temperature 98.4 F 12/22/19 06:00 Pulse Rate 108 H 12/22/19 06:00 Respiratory Rate 20 09/08/20 08:05 Blood Pressure 110/65 12/22/19 06:00 O2 Sat by Pulse Oximetry (%) 98 12/22/19 08:05 Cardiovascular: Yes: S1, S2 Respiratory: Yes: Mechanically Ventilated Gastrointestinal: Yes: Normal Bowel Sounds, Soft, Other (peg and gtube) Labs: CBC, BMP 12/21/19 08:40 12/21/19 08:40 INR, PTT INR 1.73 (0.83-1.09) H 12/09/19 12:34 Assessment/Plan - Problems (1) Pneumonia Assessment/Plan: -Recurrent -CT chest shows improvement -Pulmonary and ID consult -[facility] vent -Instructed nursing staff to make sure HOB >45 degrees at all times Problems reviewed: Yes Code(s): J18.9 - PNEUMONIA, UNSPECIFIED ORGANISM (2) Sepsis Assessment/Plan: - Orders 12/11/19 18:00 Meropenem [Merrem (Restricted To Id) -] 1 gm Dextrose 5%-Water [Dextrose 5% Water Minibag 100ML] 100 ml IVPB Q8H-IV PO VANCO picc line Microbiology 12/07/19 12:10 Sputum - Endotrachea Suction/Ventilator Gram Stain - Final 12/07/19 12:10 Sputum - Endotrachea Suction/Ventilator Sputum Culture - Final Proteus Mirabilus - Esbl Produ Pseudomonas Aeruginosa Klebsiella Pneumoniae - Esbl 12/07/19 18:20 Hip - Left Gram Stain - Final 12/07/19 18:20 Hip - Left Wound Culture - Final Pseudomonas Aeruginosa Proteus Mirabilus - Esbl Produ Vr Ec Faecium 12/10/19 20:45 Stool Clostridioides difficile Antigen - Final 12/10/19 20:45 Stool Clostridioides difficile Toxin Assay - Final 12/05/19 10:35 Blood - Peripheral Venous Blood Culture - Final NO GROWTH AFTER 5 DAYS INCUBATION 12/05/19 10:35 Blood - Peripheral Venous Blood Culture - Final NO GROWTH AFTER 5 DAYS INCUBATION 12/05/19 12:10 Urine - Urine [place] Urine Culture - Final Vr Ec Faecium Problems reviewed: Yes Code(s): A41.9 - SEPSIS, UNSPECIFIED ORGANISM (3) Anemia Assessment/Plan: -Previously TAM -Received PRBC -Continue feosol BID -Iron stores improved -Transfuse only if Hg<7.0 to avoid fluid overload -Injectafer once -AC on hold Problems reviewed: Yes Code(s): D64.9 - ANEMIA, UNSPECIFIED Qualifiers: (4) Cerebral palsy Problems reviewed: Yes Code(s): G80.9 - CEREBRAL PALSY, UNSPECIFIED Qualifiers: (5) Chronic respiratory failure Assessment/Plan: -Mech vent -Pulmonary on board -Bronchodilators -Not a candidate for weaning at this time Problems reviewed: Yes Code(s): J96.10 - CHRONIC RESPIRATORY FAILURE, UNSP W HYPOXIA OR HYPERCAPNIA Qualifiers: (6) Functional quadriplegia Problems reviewed: Yes Code(s): R53.2 - FUNCTIONAL QUADRIPLEGIA (7) Decubital ulcer Assessment/Plan: -Seen by Vascular surgery -s/p debridement Problems reviewed: Yes Code(s): L89.90 - PRESSURE ULCER OF UNSPECIFIED SITE, UNSPECIFIED STAGE (8) Severe malnutrition Assessment/Plan: -Prosource -Multivitamin -Vitamin C Problems reviewed: Yes Code(s): E43 - UNSPECIFIED SEVERE PROTEIN-CALORIE MALNUTRITION
[2019-12-22] MEDS: AMINO ACIDS/PROTEIN HYDROLYS 30 ML LIQUID.PKT GT SCH (10:15)
[2019-12-22] MEDS: FERROUS SO4 300 MG/5 ML ORAL SOLN UNIT DOSE CUPS GT SCH (10:42)
[2019-12-22] MEDS: HEPARIN NA (PORCINE) 5,000 UNITS/ML 1ML VIAL SQ SCH ×2 (10:42→22:11)
[2019-12-22] MEDS: PANTOPRAZOLE SODIUM 40 MG VIAL IVPUSH SCH (10:42)
[2019-12-22] MEDS: MULTIVIT-MINERALS ORAL LIQUID PO SCH (10:42)
[2019-12-22] MEDS: ASCORBIC ACID 500 MG TABLET (FP) PO SCH ×2 (10:42→22:11)
[2019-12-22] MEDS: LACTOBACILLUS ACIDOPHILUS 1 TABLET GT SCH (10:42)
[2019-12-22] MEDS: TRIAMCINOLONE ACET 0.5% OINT 15 GM TUBE TP SCH ×2 (10:54→22:10)
[2019-12-22 11:31] LABS: BASO % 0.5 % (0-2.0); EOS % 1.2 % (0-4.5); HEMATOCRIT 25.1 % (35.4-49); LYMPH % 10.4 % (8-40); MCH 28.9 pg (25.7-33.7); MCHC 31.9 g/dl (32.0-35.9); MEAN CELL VOLUME 90.8 fl (80-96); MEAN PLT VOLUME 6.7 fl (7.5-11.1); MONO % 5.8 % (3.8-10.2); NEUT % 82.1 % (42.8-82.8); PLATELET COUNT 764 K/MM3 (134-434); RBC 2.76 M/mm3 (4.00-5.60); RDW 18.1 % (11.9-15.9); WHITE BLOOD COUNT 15.7 K/mm3 (4.0-10.0)
[2019-12-22 12:04] LABS: ALBUMIN 0.8 g/dl (3.4-5.0); BILIRUBIN,TOTAL 0.2 mg/dL (0.2-1); CALCIUM 8.5 mg/dL (8.5-10.1); CREATININE 0.2 mg/dL (0.55-1.3); POTASSIUM 4.3 mmol/L (3.5-5.1)
[2019-12-22] MEDS: COLLAGENASE CLOSTRIDIUM HIST. 30 GRAMS TUBE TP SCH (13:00)
--- NOTE | 2019-12-22 13:00 | PN ---
Progress Note (short form) - Note Progress Note: Surgery h/o B/l hip and back decubs s/p Right hip and sacral wound debridements. Nursing reports he remains stable but continues to have multiple bouts of diarrhea, now with rectal tube in place. Nursing has been changing the wound dressings according to the orders. Last Vital Signs Temp Pulse Resp BP Pulse Ox 98.3 F 118 H 19 114/78 98 12/22/19 10:00 12/22/19 10:00 12/22/19 11:30 12/22/19 10:00 12/22/19 11:30 CBC, BMP 12/22/19 11:10 12/22/19 11:10 GENERAL: Awake, resting comfortably, NAD, not oriented to voice or touch HEAD: Normal with no signs of trauma. NECK: trach in place LUNGS: vented Right hip: @ [id number] stage 4 ulcer with 1/3 slough/necrotic tissue extending from perimeter tendons exposed. no significant undermining. +foul smelling with some drainage. Left hip: @ [id number] unstagable with worsening soft eschar and slough, and foul smelling drainage Sacrum: 2cm x 2cm ulcer with fibrinous tissue, clean with no significant d/c, Upper Back: 5cm x 4cm unstageable ulcer with soft eschar, right t-spine, MIdline t- spine 6x5 stage 4 ulcer with bone exposed and 1cm of undermining superior and @9 O'clock position and 6 O'clock position. well defined boarders, clean, left t-spin small 2x1cm stage 3 ulcer with some fibrinous tissue. abrasions and early breakdown over right buttocks. <Pankaj Gomez - Last Filed: 12/22/19 12:53> - Note Progress Note: Attending Surgeon: I personally saw and examined the patient. My examination reveals a patient with pressure ulcers. I discussed the case with the surgical PA and agree with their findings and plan of care with any exceptions as noted. ~ Michael Queen MD, FACS <Michael Queen - Last Filed: 01/05/20 08:25> Problem List - Problems (1) Decubital ulcer Assessment/Plan: Plan -pt needs further debridement of both the hips and back decubs, will plan to take to the OR on 12/23 -medical clearance -abx as per medicine/ID Pt was discussed with Dr. Queen who agrees with plan Code(s): L89.90 - PRESSURE ULCER OF UNSPECIFIED SITE, UNSPECIFIED STAGE <Pankaj Gomez - Last Filed: 12/22/19 12:53>
[2019-12-22 13:58] LABS: ANISOCYTOSIS 0; MACROCYTOSIS 0; PLATELET ESTIMATE INCREASED
--- NOTE | 2019-12-22 16:47 | PN ---
Progress Note (short form) - Note Progress Note: no fevers Vital Signs Period Temp Pulse Resp BP Sys/Gomez Pulse Ox Last 24 Hr 98.3 F-99.6 F 98-118 19-29 99-120/53-78 95-100 cor-rrr lungs decreased bs at bases abd +gt, +JT ext contracted, multiple decubiti CBC, BMP 12/22/19 11:10 12/22/19 11:10 Microbiology 12/07/19 12:10 Sputum - Endotrachea Suction/Ventilator Gram Stain - Final 12/07/19 12:10 Sputum - Endotrachea Suction/Ventilator Sputum Culture - Final Proteus Mirabilus - Esbl Produ Pseudomonas Aeruginosa Klebsiella Pneumoniae - Esbl 12/07/19 18:20 Hip - Left Gram Stain - Final 12/07/19 18:20 Hip - Left Wound Culture - Final Pseudomonas Aeruginosa Proteus Mirabilus - Esbl Produ Vr Ec Faecium 12/10/19 20:45 Stool Clostridioides difficile Antigen - Final 12/10/19 20:45 Stool Clostridioides difficile Toxin Assay - Final 12/05/19 10:35 Blood - Peripheral Venous Blood Culture - Final NO GROWTH AFTER 5 DAYS INCUBATION 12/05/19 10:35 Blood - Peripheral Venous Blood Culture - Final NO GROWTH AFTER 5 DAYS INCUBATION 12/05/19 12:10 Urine - Urine [place] Urine Culture - Final Vr Ec Faecium chest ct- improved left cavitary infiltrate a/p sepsis cavitary pneumonia RUL, left lung pneumonia infected decubiti abdominal wall cellulitis-resolving history of cdiff on po vancomycin ISOLATE vre isolation- no need to treat urine isolate-continue isolation overall prognosis is poor ?zoster left flank- on valtrex via gt day #7/7 continue meropenem day #12-improved cavitary pneumonia improved- consider picc line and continued iv meropenem at the [place] for another 9 days continue po vancomycin for duration of bs abx then vancomycin taper
[2019-12-22] MEDS ORDERED: ACETAMINOPHEN 650 MG/20.3 ML ORAL SOLUTION (CUPS) GT ONE (18:03)
[2019-12-23] MEDS: VANCOMYCIN 250 MG/5 ML ORAL SOLUTION PO SCH ×5 (00:31→23:39)
[2019-12-23] MEDS ORDERED: DEXTROSE 5%-WATER 100 ML IVPB ONE ×3 (00:47→16:50)
[2019-12-23] MEDS ORDERED: MEROPENEM 1 GM VIAL (RESTRICTED TO ID) IVPB ONE ×3 (00:47→16:50)
[2019-12-23] MEDS: MEROPENEM 1 GM in DEXTROSE 5%-WATER 100 ML IVPB SCH ×3 (01:26→17:07)
[2019-12-23] MEDS: SODIUM CHLORIDE 1,000 ML IV SCH ×3 (03:43→15:36)
[2019-12-23] MEDS: BANATROL PLUS POWDER PACKET GT SCH ×3 (05:57→23:39)
--- NOTE | 2019-12-23 07:45 | PN ---
Progress Note, Physician History of Present Illness: PULMONARY NO CHANGE,POORLY RESPONSIVE ON VENT SUPPORT - Current Medication List Current Medications: Active Medications Amino Acids (Prosource No Carb Liquid Pkt) 30 ml GT DAILY@0800 [facility] Last Admin: 12/22/19 10:15 Dose: 30 ml Documented by: Ascorbic Acid (Vitamin C -) 500 mg PO BID [facility] Last Admin: 12/22/19 22:11 Dose: 500 mg Documented by: Banana Based Medical Food (Banatrol Plus Powder Packet) 1 packet GT TID [facility] Last Admin: 12/23/19 05:57 Dose: 1 packet Documented by: Collagenase (Santyl -) 1 applic TP DAILY [facility]; Protocol Last Admin: 12/22/19 13:00 Dose: 1 applic Documented by: Ferrous Sulfate (Feosol) 300 mg GT DAILY [facility] Last Admin: 12/22/19 10:42 Dose: 300 mg Documented by: Heparin Sodium (Porcine) (Heparin -) 5,000 unit SQ BID [facility] Last Admin: 12/22/19 22:11 Dose: 5,000 unit Documented by: Meropenem 1 gm/ Dextrose 100 mls @ 200 mls/hr IVPB Q8H-IV [facility] Last Admin: 12/23/19 01:26 Dose: 200 mls/hr Documented by: Sodium Chloride (Normal Saline -) 1,000 mls @ 100 mls/hr IV ASDIR [facility] Last Admin: 12/23/19 03:43 Dose: 100 mls/hr Documented by: Lactobacillus Acidophilus (Bacid -) 1 tab GT DAILY [facility] Last Admin: 12/22/19 10:42 Dose: 1 tab Documented by: Multivitamins/Minerals (Certavite-Antioxidant Liquid) 15 ml PO DAILY [facility] Last Admin: 12/22/19 10:42 Dose: 15 ml Documented by: Pantoprazole Sodium (Protonix Iv) 40 mg IVPUSH DAILY [facility] Last Admin: 12/22/19 10:42 Dose: 40 mg Documented by: Triamcinolone Acetonide (Aristocort 0.5% Ointment -) 1 applic TP BID [facility] Last Admin: 12/22/19 22:10 Dose: 1 applic Documented by: Vancomycin HCl (Vancomycin Oral Solution) 125 mg PO Q6HPO [facility] Last Admin: 12/23/19 05:57 Dose: 125 mg Documented by: - Objective Vital Signs: Vital Signs Temperature 98.7 F 12/23/19 06:00 Pulse Rate 107 H 12/23/19 06:00 Respiratory Rate 18 12/23/19 06:00 Blood Pressure 99/64 12/23/19 06:00 O2 Sat by Pulse Oximetry (%) 100 12/23/19 06:00 Constitutional: Yes: Cachectic, Other (POORLY RESPONSIVE) Eyes: Yes: WNL HENT: Yes: WNL Neck: Yes: Supple (TRACH) Cardiovascular: Yes: Regular Rate and Rhythm, S1, S2 Respiratory: Yes: Rhonchi (FEW SCATTERED RHONCHI) Gastrointestinal: Yes: Normal Bowel Sounds, Soft Extremities: Yes: Other (CONTRACTED) Edema: No Labs: CBC, BMP 12/22/19 11:10 Problem List - Problems (1) Lactic acidosis Code(s): E87.2 - ACIDOSIS (2) Pneumonia Code(s): J18.9 - PNEUMONIA, UNSPECIFIED ORGANISM (3) Sepsis Code(s): A41.9 - SEPSIS, UNSPECIFIED ORGANISM (4) Anemia Code(s): D64.9 - ANEMIA, UNSPECIFIED Qualifiers: (5) COPD (chronic obstructive pulmonary disease) Code(s): J44.9 - CHRONIC OBSTRUCTIVE PULMONARY DISEASE, UNSPECIFIED Qualifiers: (6) Cerebral palsy Code(s): G80.9 - CEREBRAL PALSY, UNSPECIFIED Qualifiers: (7) Chronic respiratory failure Code(s): J96.10 - CHRONIC RESPIRATORY FAILURE, UNSP W HYPOXIA OR HYPERCAPNIA Qualifiers: (8) Decubital ulcer Code(s): L89.90 - PRESSURE ULCER OF UNSPECIFIED SITE, UNSPECIFIED STAGE (9) Parkinson disease Code(s): G20 - PARKINSON'S DISEASE (10) Severe malnutrition Code(s): E43 - UNSPECIFIED SEVERE PROTEIN-CALORIE MALNUTRITION Assessment/Plan ASSESSMENT AND PLAN: Pneumonia Infected Decubitus Ulcers h/o C diff colitis Severe Sepsis Chronic Respiratory Failure Cerebral Palsy Parkinsons Anemia - monitor urine output, creatinine - wound care - continue volume assist control - poor candidate for weaning - enteral feeds - DVT/GI prophylaxis - abx as per ID - FOR BILATERAL HIP AND SACRAL WOUND DEBRIDEMENT TODAY - DR HERNANDEZ
--- NOTE | 2019-12-23 08:00 | PN ---
Progress Note, Physician - Current Medication List Current Medications: Active Medications Amino Acids (Prosource No Carb Liquid Pkt) 30 ml GT DAILY@0800 [facility] Last Admin: 12/22/19 10:15 Dose: 30 ml Documented by: Ascorbic Acid (Vitamin C -) 500 mg PO BID [facility] Last Admin: 12/22/19 22:11 Dose: 500 mg Documented by: Banana Based Medical Food (Banatrol Plus Powder Packet) 1 packet GT TID [facility] Last Admin: 12/23/19 05:57 Dose: 1 packet Documented by: Collagenase (Santyl -) 1 applic TP DAILY [facility]; Protocol Last Admin: 12/22/19 13:00 Dose: 1 applic Documented by: Ferrous Sulfate (Feosol) 300 mg GT DAILY [facility] Last Admin: 12/22/19 10:42 Dose: 300 mg Documented by: Heparin Sodium (Porcine) (Heparin -) 5,000 unit SQ BID [facility] Last Admin: 12/22/19 22:11 Dose: 5,000 unit Documented by: Meropenem 1 gm/ Dextrose 100 mls @ 200 mls/hr IVPB Q8H-IV [facility] Last Admin: 12/23/19 01:26 Dose: 200 mls/hr Documented by: Sodium Chloride (Normal Saline -) 1,000 mls @ 100 mls/hr IV ASDIR [facility] Last Admin: 12/23/19 03:43 Dose: 100 mls/hr Documented by: Lactobacillus Acidophilus (Bacid -) 1 tab GT DAILY [facility] Last Admin: 12/22/19 10:42 Dose: 1 tab Documented by: Multivitamins/Minerals (Certavite-Antioxidant Liquid) 15 ml PO DAILY [facility] Last Admin: 12/22/19 10:42 Dose: 15 ml Documented by: Pantoprazole Sodium (Protonix Iv) 40 mg IVPUSH DAILY [facility] Last Admin: 12/22/19 10:42 Dose: 40 mg Documented by: Triamcinolone Acetonide (Aristocort 0.5% Ointment -) 1 applic TP BID [facility] Last Admin: 12/22/19 22:10 Dose: 1 applic Documented by: Vancomycin HCl (Vancomycin Oral Solution) 125 mg PO Q6HPO [facility] Last Admin: 12/23/19 05:57 Dose: 125 mg Documented by: - Objective Vital Signs: Vital Signs Temperature 98.7 F 12/23/19 06:00 Pulse Rate 107 H 12/23/19 06:00 Respiratory Rate 29 H 12/23/19 07:43 Blood Pressure 99/64 12/23/19 06:00 O2 Sat by Pulse Oximetry (%) 95 12/23/19 07:43 Cardiovascular: Yes: S1, S2 Respiratory: Yes: Mechanically Ventilated Gastrointestinal: Yes: Normal Bowel Sounds, Soft Labs: CBC, BMP 12/22/19 11:10 12/22/19 11:10 INR, PTT INR 1.73 (0.83-1.09) H 12/09/19 12:34 Assessment/Plan - Problems (1) Pneumonia Assessment/Plan: -Recurrent -CT chest shows improvement -Pulmonary and ID consult -[facility] vent -Instructed nursing staff to make sure HOB >45 degrees at all times Problems reviewed: Yes Code(s): J18.9 - PNEUMONIA, UNSPECIFIED ORGANISM (2) Sepsis Assessment/Plan: - Orders 12/11/19 18:00 Meropenem [Merrem (Restricted To Id) -] 1 gm Dextrose 5%-Water [Dextrose 5% Water Minibag 100ML] 100 ml IVPB Q8H-IV PO VANCO picc line Microbiology 12/07/19 12:10 Sputum - Endotrachea Suction/Ventilator Gram Stain - Final 12/07/19 12:10 Sputum - Endotrachea Suction/Ventilator Sputum Culture - Final Proteus Mirabilus - Esbl Produ Pseudomonas Aeruginosa Klebsiella Pneumoniae - Esbl 12/07/19 18:20 Hip - Left Gram Stain - Final 12/07/19 18:20 Hip - Left Wound Culture - Final Pseudomonas Aeruginosa Proteus Mirabilus - Esbl Produ Vr Ec Faecium 12/10/19 20:45 Stool Clostridioides difficile Antigen - Final 12/10/19 20:45 Stool Clostridioides difficile Toxin Assay - Final 12/05/19 10:35 Blood - Peripheral Venous Blood Culture - Final NO GROWTH AFTER 5 DAYS INCUBATION 12/05/19 10:35 Blood - Peripheral Venous Blood Culture - Final NO GROWTH AFTER 5 DAYS INCUBATION 12/05/19 12:10 Urine - Urine [place] Urine Culture - Final Vr Ec Faecium Problems reviewed: Yes Code(s): A41.9 - SEPSIS, UNSPECIFIED ORGANISM (3) Anemia Assessment/Plan: -Previously TAM -Received PRBC -Continue feosol BID -Iron stores improved -Transfuse only if Hg<7.0 to avoid fluid overload -Injectafer once -AC on hold Problems reviewed: Yes Code(s): D64.9 - ANEMIA, UNSPECIFIED Qualifiers: (4) Cerebral palsy Problems reviewed: Yes Code(s): G80.9 - CEREBRAL PALSY, UNSPECIFIED Qualifiers: (5) Chronic respiratory failure Assessment/Plan: -Mech vent -Pulmonary on board -Bronchodilators -Not a candidate for weaning at this time Problems reviewed: Yes Code(s): J96.10 - CHRONIC RESPIRATORY FAILURE, UNSP W HYPOXIA OR HYPERCAPNIA Qualifiers: (6) Functional quadriplegia Problems reviewed: Yes Code(s): R53.2 - FUNCTIONAL QUADRIPLEGIA (7) Decubital ulcer Assessment/Plan: -Seen by Vascular surgery -s/p debridement--for debridement Problems reviewed: Yes Code(s): L89.90 - PRESSURE ULCER OF UNSPECIFIED SITE, UNSPECIFIED STAGE (8) Severe malnutrition Assessment/Plan: -Prosource -Multivitamin -Vitamin C Problems reviewed: Yes Code(s): E43 - UNSPECIFIED SEVERE PROTEIN-CALORIE MALNUTRITION No absolute contraindication for planned procedure
[2019-12-23] MEDS: AMINO ACIDS/PROTEIN HYDROLYS 30 ML LIQUID.PKT GT SCH (09:30)
[2019-12-23] MEDS: LACTOBACILLUS ACIDOPHILUS 1 TABLET GT SCH (09:53)
[2019-12-23] MEDS: ASCORBIC ACID 500 MG TABLET (FP) PO SCH ×2 (09:53→23:39)
[2019-12-23] MEDS: FERROUS SO4 300 MG/5 ML ORAL SOLN UNIT DOSE CUPS GT SCH (09:53)
[2019-12-23] MEDS: HEPARIN NA (PORCINE) 5,000 UNITS/ML 1ML VIAL SQ SCH (09:53)
[2019-12-23] MEDS: PANTOPRAZOLE SODIUM 40 MG VIAL IVPUSH SCH (09:54)
[2019-12-23] MEDS: MULTIVIT-MINERALS ORAL LIQUID PO SCH (09:54)
[2019-12-23] MEDS: TRIAMCINOLONE ACET 0.5% OINT 15 GM TUBE TP SCH ×2 (10:10→23:39)
[2019-12-23 11:05] LABS: BASO % 1.3 % (0-2.0); EOS % 0.6 % (0-4.5); HEMATOCRIT 27.6 % (35.4-49); HEMOGLOBIN 8.7 GM/dL (11.7-16.9); LYMPH % 6.8 % (8-40); MCHC 31.5 g/dl (32.0-35.9); MEAN CELL VOLUME 92.1 fl (80-96); MEAN PLT VOLUME 7.1 fl (7.5-11.1); MONO % 5.7 % (3.8-10.2); NEUT % 85.6 % (42.8-82.8); PLATELET COUNT 784 K/MM3 (134-434); RBC 2.99 M/mm3 (4.00-5.60); RDW 18.9 % (11.9-15.9); WHITE BLOOD COUNT 18.2 K/mm3 (4.0-10.0)
--- NOTE | 2019-12-23 11:22 | SPA.PREOP ---
- PRE-OP NOTE Dx: Necrotic decubitus ulcers Planned Procedure: Debridement of bilateral hip and sacral decubitus ulcers Surgeon: Dr Queen Last Vital Signs Temp Pulse Resp BP Pulse Ox 98.7 F 107 H 29 H 99/64 95 12/23/19 06:00 12/23/19 06:00 12/23/19 07:43 12/23/19 06:00 12/23/19 07:43 Lab Results WBC 18.2 K/mm3 (4.0-10.0) H 12/23/19 10:11 RBC 2.99 M/mm3 (4.00-5.60) L 12/23/19 10:11 Hgb 8.7 GM/dL (11.7-16.9) L 12/23/19 10:11 Hct 27.6 % (35.4-49) L 12/23/19 10:11 MCV 92.1 fl (80-96) 12/23/19 10:11 MCHC 31.5 g/dl (32.0-35.9) L 12/23/19 10:11 RDW 18.9 % (11.9-15.9) H 12/23/19 10:11 Plt Count 784 K/MM3 (134-434) H 12/23/19 10:11 INR 1.73 (0.83-1.09) H 12/09/19 12:34 Sodium 135 mmol/L (136-145) L 12/22/19 11:10 Potassium 4.3 mmol/L (3.5-5.1) 12/22/19 11:10 Chloride 105 mmol/L (98-107) 12/22/19 11:10 Carbon Dioxide 25 mmol/L (21-32) 12/22/19 11:10 Anion Gap 5 MMOL/L (8-16) L 12/22/19 11:10 BUN 14.0 mg/dL (7-18) 12/22/19 11:10 Creatinine 0.2 mg/dL (0.55-1.3) L 12/22/19 11:10 Random Glucose 108 mg/dL (74-106) H 12/22/19 11:10 Calcium 8.5 mg/dL (8.5-10.1) 12/22/19 11:10 Blood Type O POSITIVE 12/09/19 12:34 Antibody Screen Negative 12/09/19 12:34 - IMAGING Chest X-ray: Report Reviewed EKG: Report Reviewed - ASSESSMENT/PLAN 1. Make NPO after midnight except po meds 2. GI/DVT PPX 3. Medical optimization / clearance 4. Consent to be obtained by surgeon after risks, benefits and alternatives discussed with patient and or Health Care Proxy. <PhoenixRoselia bar - Last Filed: 12/23/19 11:21> - PRE-OP NOTE Dx: Planned Procedure: Surgeon: Last Vital Signs Temp Pulse Resp BP Pulse Ox 100.8 F H 96 H 19 107/53 L 100 01/04/20 10:00 01/04/20 10:00 01/04/20 11:33 01/04/20 10:00 01/04/20 11:33 Lab Results WBC 14.8 K/mm3 (4.0-10.0) H 01/04/20 07:40 RBC 3.00 M/mm3 (4.00-5.60) L 01/04/20 07:40 Hgb 8.7 GM/dL (11.7-16.9) L 01/04/20 07:40 Hct 27.5 % (35.4-49) L 01/04/20 07:40 MCV 91.7 fl (80-96) 01/04/20 07:40 MCHC 31.8 g/dl (32.0-35.9) L 01/04/20 07:40 RDW 17.4 % (11.9-15.9) H 01/04/20 07:40 Plt Count 724 K/MM3 (134-434) H 01/04/20 07:40 INR 1.73 (0.83-1.09) H 12/09/19 12:34 Sodium 131 mmol/L (136-145) L 01/03/20 07:30 Potassium 5.0 mmol/L (3.5-5.1) 01/03/20 07:30 Chloride 97 mmol/L (98-107) L 01/03/20 07:30 Carbon Dioxide 32 mmol/L (21-32) 01/03/20 07:30 Anion Gap 2 MMOL/L (8-16) L 01/03/20 07:30 BUN 21.3 mg/dL (7-18) H 01/03/20 07:30 Creatinine 0.2 mg/dL (0.55-1.3) L 01/03/20 07:30 Random Glucose 95 mg/dL (74-106) 01/03/20 07:30 Calcium 9.0 mg/dL (8.5-10.1) 01/03/20 07:30 Blood Type O POSITIVE 12/25/19 12:53 Antibody Screen Positive 12/25/19 12:53 - ASSESSMENT/PLAN 1. Make NPO after midnight except po meds 2. GI/DVT PPX 3. Medical optimization / clearance 4. Consent to be obtained by surgeon after risks, benefits and alternatives discussed with patient and or Health Care Proxy. Attending Surgeon: I personally saw and examined the patient. My examination reveals a patient with pressure ulcers*. I discussed the case with the surgical PA and agree with their findings and plan of care with any exceptions as noted. ~ Michael Queen MD, FACS <Michael Queen - Last Filed: 01/11/20 16:36>
[2019-12-23 11:30] LABS: ALBUMIN 0.9 g/dl (3.4-5.0); BILIRUBIN,TOTAL 0.2 mg/dL (0.2-1); BLOOD UREA NITROGEN 18.7 mg/dL (7-18); CALCIUM 8.4 mg/dL (8.5-10.1); CREATININE 0.3 mg/dL (0.55-1.3); POTASSIUM 4.7 mmol/L (3.5-5.1); TOT PROT 6.7 g/dl (6.4-8.2)
--- NOTE | 2019-12-23 12:56 | EKG ---
Test Reason : Blood Pressure : / mmHG Vent. Rate : 117 BPM Atrial Rate : 117 BPM P-R Int : 152 ms QRS Dur : 080 ms QT Int : 326 ms P-R-T Axes : 051 027 046 degrees QTc Int : 454 ms SINUS TACHYCARDIA OTHERWISE NORMAL ECG WHEN COMPARED WITH ECG OF 05-DEC-2019 11:09, CRITERIA FOR SEPTAL INFARCT ARE NO LONGER PRESENT Confirmed by MD MILA, GRANT ([id number]) on 12/23/2019 12:56:19 PM Referred By: Confirmed By:GRANT ZARAGOZA MD
[2019-12-23] MEDS ORDERED: PT OWN MED DRAWER 7, Y5N ONE (13:42)
[2019-12-23] MEDS: COLLAGENASE CLOSTRIDIUM HIST. 30 GRAMS TUBE TP SCH (14:51)
[2019-12-24] MEDS ORDERED: MEROPENEM 1 GM VIAL (RESTRICTED TO ID) IVPB ONE ×3 (01:23→18:40)
[2019-12-24] MEDS ORDERED: DEXTROSE 5%-WATER 100 ML IVPB ONE ×3 (01:24→18:40)
[2019-12-24] MEDS: MEROPENEM 1 GM in DEXTROSE 5%-WATER 100 ML IVPB SCH ×3 (01:44→18:51)
[2019-12-24] MEDS: SODIUM CHLORIDE 1,000 ML IV SCH ×3 (03:09→14:41)
[2019-12-24] MEDS: VANCOMYCIN 250 MG/5 ML ORAL SOLUTION PO SCH ×4 (05:46→23:31)
[2019-12-24] MEDS: BANATROL PLUS POWDER PACKET GT SCH ×3 (05:46→23:11)
--- NOTE | 2019-12-24 07:18 | PN ---
Progress Note, Physician - Current Medication List Current Medications: Active Medications Amino Acids (Prosource No Carb Liquid Pkt) 30 ml GT DAILY@0800 [facility] Last Admin: 12/23/19 09:30 Dose: 30 ml Documented by: Ascorbic Acid (Vitamin C -) 500 mg PO BID [facility] Last Admin: 12/23/19 23:39 Dose: 500 mg Documented by: Banana Based Medical Food (Banatrol Plus Powder Packet) 1 packet GT TID [facility] Last Admin: 12/24/19 05:46 Dose: 1 packet Documented by: Collagenase (Santyl -) 1 applic TP DAILY [facility]; Protocol Last Admin: 12/23/19 14:51 Dose: 1 applic Documented by: Ferrous Sulfate (Feosol) 300 mg GT DAILY [facility] Last Admin: 12/23/19 09:53 Dose: 300 mg Documented by: Meropenem 1 gm/ Dextrose 100 mls @ 200 mls/hr IVPB Q8H-IV [facility] Last Admin: 12/24/19 01:44 Dose: 200 mls/hr Documented by: Sodium Chloride (Normal Saline -) 1,000 mls @ 100 mls/hr IV ASDIR [facility] Last Admin: 12/24/19 03:09 Dose: 100 mls/hr Documented by: Lactobacillus Acidophilus (Bacid -) 1 tab GT DAILY [facility] Last Admin: 12/23/19 09:53 Dose: 1 tab Documented by: Multivitamins/Minerals (Certavite-Antioxidant Liquid) 15 ml PO DAILY [facility] Last Admin: 12/23/19 09:54 Dose: 15 ml Documented by: Pantoprazole Sodium (Protonix Iv) 40 mg IVPUSH DAILY [facility] Last Admin: 12/23/19 09:54 Dose: 40 mg Documented by: Triamcinolone Acetonide (Aristocort 0.5% Ointment -) 1 applic TP BID [facility] Last Admin: 12/23/19 23:39 Dose: 1 applic Documented by: Vancomycin HCl (Vancomycin Oral Solution) 125 mg PO Q6HPO [facility] Last Admin: 12/24/19 05:46 Dose: 125 mg Documented by: - Objective Vital Signs: Vital Signs Temperature 97.8 F 12/24/19 03:00 Pulse Rate 110 H 12/24/19 03:00 Respiratory Rate 20 12/24/19 04:31 Blood Pressure 120/64 12/24/19 03:00 O2 Sat by Pulse Oximetry (%) 100 09/10/20 04:31 Cardiovascular: Yes: S1, S2 Respiratory: Yes: Mechanically Ventilated Gastrointestinal: Yes: Normal Bowel Sounds, Soft Labs: CBC, BMP 12/23/19 10:11 12/23/19 10:11 INR, PTT INR 1.73 (0.83-1.09) H 12/09/19 12:34 Assessment/Plan - Problems (1) Pneumonia Assessment/Plan: -Recurrent -CT chest shows improvement -Pulmonary and ID consult -[facility] vent -Instructed nursing staff to make sure HOB >45 degrees at all times Problems reviewed: Yes Code(s): J18.9 - PNEUMONIA, UNSPECIFIED ORGANISM (2) Sepsis Assessment/Plan: - Orders 12/11/19 18:00 Meropenem [Merrem (Restricted To Id) -] 1 gm Dextrose 5%-Water [Dextrose 5% Water Minibag 100ML] 100 ml IVPB Q8H-IV PO VANCO picc line Microbiology 12/07/19 12:10 Sputum - Endotrachea Suction/Ventilator Gram Stain - Final 12/07/19 12:10 Sputum - Endotrachea Suction/Ventilator Sputum Culture - Final Proteus Mirabilus - Esbl Produ Pseudomonas Aeruginosa Klebsiella Pneumoniae - Esbl 12/07/19 18:20 Hip - Left Gram Stain - Final 12/07/19 18:20 Hip - Left Wound Culture - Final Pseudomonas Aeruginosa Proteus Mirabilus - Esbl Produ Vr Ec Faecium 12/10/19 20:45 Stool Clostridioides difficile Antigen - Final 12/10/19 20:45 Stool Clostridioides difficile Toxin Assay - Final 12/05/19 10:35 Blood - Peripheral Venous Blood Culture - Final NO GROWTH AFTER 5 DAYS INCUBATION 12/05/19 10:35 Blood - Peripheral Venous Blood Culture - Final NO GROWTH AFTER 5 DAYS INCUBATION 12/05/19 12:10 Urine - Urine [place] Urine Culture - Final Vr Ec Faecium Problems reviewed: Yes Code(s): A41.9 - SEPSIS, UNSPECIFIED ORGANISM (3) Anemia Assessment/Plan: -Previously TAM -Received PRBC -Continue feosol BID -Iron stores improved -Transfuse only if Hg<7.0 to avoid fluid overload -Injectafer once -AC on hold Problems reviewed: Yes Code(s): D64.9 - ANEMIA, UNSPECIFIED Qualifiers: (4) Cerebral palsy Problems reviewed: Yes Code(s): G80.9 - CEREBRAL PALSY, UNSPECIFIED Qualifiers: (5) Chronic respiratory failure Assessment/Plan: -[facility] vent -Pulmonary on board -Bronchodilators -Not a candidate for weaning at this time Problems reviewed: Yes Code(s): J96.10 - CHRONIC RESPIRATORY FAILURE, UNSP W HYPOXIA OR HYPERCAPNIA Qualifiers: (6) Functional quadriplegia Problems reviewed: Yes Code(s): R53.2 - FUNCTIONAL QUADRIPLEGIA (7) Decubital ulcer Assessment/Plan: -Seen by Vascular surgery -s/p debridement--for debridement today Problems reviewed: Yes Code(s): L89.90 - PRESSURE ULCER OF UNSPECIFIED SITE, UNSPECIFIED STAGE (8) Severe malnutrition Assessment/Plan: -Prosource -Multivitamin -Vitamin C Problems reviewed: Yes Code(s): E43 - UNSPECIFIED SEVERE PROTEIN-CALORIE MALNUTRITION No absolute contraindication for planned procedure
[2019-12-24] MEDS ORDERED: INSULIN (LEVEMIR) 100 UNITS/ML UNITS SQ ONE (08:15)
[2019-12-24] MEDS: AMINO ACIDS/PROTEIN HYDROLYS 30 ML LIQUID.PKT GT SCH (08:50)
[2019-12-24] MEDS ORDERED: PT OWN MED DRAWER 7, Y5N ONE ×2 (09:38→14:37)
[2019-12-24] MEDS: LACTOBACILLUS ACIDOPHILUS 1 TABLET GT SCH (09:42)
[2019-12-24] MEDS: MULTIVIT-MINERALS ORAL LIQUID PO SCH (09:42)
[2019-12-24] MEDS: ASCORBIC ACID 500 MG TABLET (FP) PO SCH ×2 (09:42→23:11)
[2019-12-24] MEDS: FERROUS SO4 300 MG/5 ML ORAL SOLN UNIT DOSE CUPS GT SCH (09:42)
[2019-12-24] MEDS: COLLAGENASE CLOSTRIDIUM HIST. 30 GRAMS TUBE TP SCH (09:44)
[2019-12-24] MEDS: PANTOPRAZOLE SODIUM 40 MG VIAL IVPUSH SCH (09:44)
[2019-12-24] MEDS: TRIAMCINOLONE ACET 0.5% OINT 15 GM TUBE TP SCH ×2 (09:44→23:11)
--- NOTE | 2019-12-24 10:47 | PN ---
Progress Note (short form) - Note Progress Note: PULMONARY Vented, awake. Low grade temp yesterday. For ulcer debridement. Vital Signs Period Temp Pulse Resp BP Sys/Gomez Pulse Ox Last 24 Hr 97.8 F-100.2 F 103-120 20-33 102-143/59-67 95-100 Gen: vented, awake Heart: RRR Lung: scattered rhonchi Abd: soft, nontender Ext: contracted, no edema CBC, BMP 12/23/19 10:11 12/23/19 10:11 Active Medications Amino Acids (Prosource No Carb Liquid Pkt) 30 ml GT DAILY@0800 [facility] Last Admin: 12/24/19 08:50 Dose: 30 ml Documented by: Ascorbic Acid (Vitamin C -) 500 mg PO BID [facility] Last Admin: 12/24/19 09:42 Dose: 500 mg Documented by: Banana Based Medical Food (Banatrol Plus Powder Packet) 1 packet GT TID [facility] Last Admin: 12/24/19 05:46 Dose: 1 packet Documented by: Collagenase (Santyl -) 1 applic TP DAILY [facility]; Protocol Last Admin: 12/24/19 09:44 Dose: 1 applic Documented by: Ferrous Sulfate (Feosol) 300 mg GT DAILY [facility] Last Admin: 12/24/19 09:42 Dose: 300 mg Documented by: Meropenem 1 gm/ Dextrose 100 mls @ 200 mls/hr IVPB Q8H-IV [facility] Last Admin: 12/24/19 09:43 Dose: 200 mls/hr Documented by: Sodium Chloride (Normal Saline -) 1,000 mls @ 100 mls/hr IV ASDIR [facility] Last Admin: 12/24/19 03:09 Dose: 100 mls/hr Documented by: Lactobacillus Acidophilus (Bacid -) 1 tab GT DAILY [facility] Last Admin: 12/24/19 09:42 Dose: 1 tab Documented by: Multivitamins/Minerals (Certavite-Antioxidant Liquid) 15 ml PO DAILY [facility] Last Admin: 12/24/19 09:42 Dose: 15 ml Documented by: Pantoprazole Sodium (Protonix Iv) 40 mg IVPUSH DAILY [facility] Last Admin: 12/24/19 09:44 Dose: 40 mg Documented by: Triamcinolone Acetonide (Aristocort 0.5% Ointment -) 1 applic TP BID [facility] Last Admin: 12/24/19 09:44 Dose: 1 applic Documented by: Vancomycin HCl (Vancomycin Oral Solution) 125 mg PO Q6HPO [facility] Last Admin: 12/24/19 05:46 Dose: 125 mg Documented by: A/P Pneumonia Infected Decubitus Ulcers h/o C diff colitis Severe Sepsis Lactic Acidosis Chronic Respiratory Failure Cerebral Palsy Parkinsons Anemia - continue antibiotics - monitor urine output, creatinine - wound care - continue volume assist control - poor candidate for weaning - enteral feeds - DVT/GI prophylaxis
--- NOTE | 2019-12-24 12:39 | OP ---
Operative Note - Note: Operative Date: 12/24/19 Pre-Operative Diagnosis: decubiti ulcers Operation: excisional debridement skin/subcutaneous fat/muscle and fascia of the left hip/sacrum and upper back Findings: necrotic unstageable wounds from pressure necrosis Post-Operative Diagnosis: Same as Pre-op Surgeon: Michael Queen Knitting Machine Operator Automatic: Pankaj Gomez Anesthesiologist/RESEARCH GENETICIST: Kirti March Anesthesia: General Specimens Removed: nonviable soft tissue Estimated Blood Loss (mls): 20
--- NOTE | 2019-12-24 12:49 | SURG ---
Surgery Environmental Programs Manager Note Environmental Programs Manager: Pankaj Gomez PA-C Date of Service: 12/24/19 Diagnosis: decubiti ulcers Procedure: excisional debridement skin/subcutaneous fat/muscle and fascia of the left hip/sacrum and upper back I was present for the entirety of the operative procedure. For further detail, please refer to operative report. Visit type - Case Type Case Type: ED Admission - Emergency Emergency Visit: Yes ED Registration Date: 12/05/19 Care time: The patient presented to the Emergency Department on the above date and was hospitalized for further evaluation of their emergent condition. - New patient This patient is new to me today: No - Critical Care Critical Care patient: No
[2019-12-25] MEDS: SODIUM CHLORIDE 1,000 ML IV SCH ×2 (00:23→18:26)
[2019-12-25] MEDS ORDERED: MEROPENEM 1 GM VIAL (RESTRICTED TO ID) IVPB ONE ×3 (00:36→20:51)
[2019-12-25] MEDS ORDERED: DEXTROSE 5%-WATER 100 ML IVPB ONE ×3 (00:36→20:51)
[2019-12-25] MEDS: MEROPENEM 1 GM in DEXTROSE 5%-WATER 100 ML IVPB SCH ×4 (01:01→20:57)
[2019-12-25] MEDS: VANCOMYCIN 250 MG/5 ML ORAL SOLUTION PO SCH ×3 (05:56→18:26)
[2019-12-25] MEDS: BANATROL PLUS POWDER PACKET GT SCH ×3 (05:56→22:04)
--- NOTE | 2019-12-25 07:15 | PN ---
Progress Note, Physician - Current Medication List Current Medications: Active Medications Amino Acids (Prosource No Carb Liquid Pkt) 30 ml GT DAILY@0800 [facility] Ascorbic Acid (Vitamin C -) 500 mg PO BID [facility] Last Admin: 12/24/19 23:11 Dose: 500 mg Documented by: Banana Based Medical Food (Banatrol Plus Powder Packet) 1 packet GT TID [facility] Last Admin: 12/25/19 05:56 Dose: 1 packet Documented by: Collagenase (Santyl -) 1 applic TP DAILY [facility]; Protocol Ferrous Sulfate (Feosol) 300 mg GT DAILY [facility] Meropenem 1 gm/ Dextrose 100 mls @ 200 mls/hr IVPB Q8H-IV [facility] Last Admin: 12/25/19 01:01 Dose: 200 mls/hr Documented by: Sodium Chloride (Normal Saline -) 1,000 mls @ 100 mls/hr IV ASDIR [facility] Last Admin: 12/25/19 00:23 Dose: 100 mls/hr Documented by: Lactobacillus Acidophilus (Bacid -) 1 tab GT DAILY [facility] Multivitamins/Minerals (Certavite-Antioxidant Liquid) 15 ml PO DAILY [facility] Pantoprazole Sodium (Protonix Iv) 40 mg IVPUSH DAILY [facility] Triamcinolone Acetonide (Aristocort 0.5% Ointment -) 1 applic TP BID [facility] Last Admin: 12/24/19 23:11 Dose: 1 applic Documented by: Vancomycin HCl (Vancomycin Oral Solution) 125 mg PO Q6HPO [facility] Last Admin: 12/25/19 05:56 Dose: 125 mg Documented by: - Objective Vital Signs: Vital Signs Temperature 98.8 F 12/25/19 02:00 Pulse Rate 99 H 12/25/19 02:00 Respiratory Rate 24 H 12/25/19 04:39 Blood Pressure 103/45 L 12/25/19 02:00 O2 Sat by Pulse Oximetry (%) 99 12/25/19 04:39 Cardiovascular: Yes: S1, S2 Respiratory: Yes: Mechanically Ventilated Gastrointestinal: Yes: Normal Bowel Sounds, Soft Extremities: Yes: Other (contracted) Edema: No Labs: CBC, BMP 12/23/19 10:11 12/23/19 10:11 INR, PTT INR 1.73 (0.83-1.09) H 12/09/19 12:34 Assessment/Plan - Problems (1) Pneumonia Assessment/Plan: -Recurrent -CT chest shows improvement -Pulmonary and ID consult -Mech vent -Instructed nursing staff to make sure HOB >45 degrees at all times Problems reviewed: Yes Code(s): J18.9 - PNEUMONIA, UNSPECIFIED ORGANISM (2) Sepsis Assessment/Plan: - Orders 12/11/19 18:00 Meropenem [Merrem (Restricted To Id) -] 1 gm Dextrose 5%-Water [Dextrose 5% Water Minibag 100ML] 100 ml IVPB Q8H-IV PO VANCO picc line Microbiology 12/07/19 12:10 Sputum - Endotrachea Suction/Ventilator Gram Stain - Final 12/07/19 12:10 Sputum - Endotrachea Suction/Ventilator Sputum Culture - Final Proteus Mirabilus - Esbl Produ Pseudomonas Aeruginosa Klebsiella Pneumoniae - Esbl 12/07/19 18:20 Hip - Left Gram Stain - Final 12/07/19 18:20 Hip - Left Wound Culture - Final Pseudomonas Aeruginosa Proteus Mirabilus - Esbl Produ Vr Ec Faecium 12/10/19 20:45 Stool Clostridioides difficile Antigen - Final 12/10/19 20:45 Stool Clostridioides difficile Toxin Assay - Final 12/05/19 10:35 Blood - Peripheral Venous Blood Culture - Final NO GROWTH AFTER 5 DAYS INCUBATION 12/05/19 10:35 Blood - Peripheral Venous Blood Culture - Final NO GROWTH AFTER 5 DAYS INCUBATION 12/05/19 12:10 Urine - Urine [place] Urine Culture - Final Vr Ec Faecium Problems reviewed: Yes Code(s): A41.9 - SEPSIS, UNSPECIFIED ORGANISM (3) Anemia Assessment/Plan: -Previously TAM -Received PRBC --one more unit today -Continue feosol BID -Iron stores improved -Injectafer once -AC on hold Problems reviewed: Yes Code(s): D64.9 - ANEMIA, UNSPECIFIED Qualifiers: (4) Cerebral palsy Problems reviewed: Yes Code(s): G80.9 - CEREBRAL PALSY, UNSPECIFIED Qualifiers: (5) Chronic respiratory failure Assessment/Plan: -Mech vent -Pulmonary on board -Bronchodilators -Not a candidate for weaning at this time Problems reviewed: Yes Code(s): J96.10 - CHRONIC RESPIRATORY FAILURE, UNSP W HYPOXIA OR HYPERCAPNIA Qualifiers: (6) Functional quadriplegia Problems reviewed: Yes Code(s): R53.2 - FUNCTIONAL QUADRIPLEGIA (7) Decubital ulcer Assessment/Plan: -Seen by Vascular surgery -s/p debridement--s/p debridement Operative Date: 12/24/19 Pre-Operative Diagnosis: decubiti ulcers Operation: excisional debridement skin/subcutaneous fat/muscle and fascia of the left hip/sacrum and upper back Findings: necrotic unstageable wounds from pressure necrosis Post-Operative Diagnosis: Same as Pre-op Surgeon: Michael Queen Medical Legal Investigator: Pankaj Gomez Problems reviewed: Yes Code(s): L89.90 - PRESSURE ULCER OF UNSPECIFIED SITE, UNSPECIFIED STAGE (8) Severe malnutrition Assessment/Plan: -Prosource -Multivitamin -Vitamin C Problems reviewed: Yes Code(s): E43 - UNSPECIFIED SEVERE PROTEIN-CALORIE MALNUTRITION dc planning back to snf vs ltac saturday
[2019-12-25 10:04] LABS: BASO % 0.6 % (0-2.0); EOS % 1.8 % (0-4.5); HEMOGLOBIN 7.2 GM/dL (11.7-16.9); LYMPH % 10.2 % (8-40); MCH 28.9 pg (25.7-33.7); MCHC 31.4 g/dl (32.0-35.9); MEAN PLT VOLUME 6.6 fl (7.5-11.1); MONO % 6.4 % (3.8-10.2); PLATELET COUNT 677 K/MM3 (134-434); WHITE BLOOD COUNT 13.4 K/mm3 (4.0-10.0)
[2019-12-25 10:32] LABS: ALBUMIN 0.7 g/dl (3.4-5.0); ALK PHOS 184 U/L (45-117); ANION GAP 5 MMOL/L (8-16); BILIRUBIN,TOTAL < 0.1 mg/dL (0.2-1); BLOOD UREA NITROGEN 15.4 mg/dL (7-18); CALCIUM 8.2 mg/dL (8.5-10.1); CHLORIDE 108 mmol/L (98-107); CO2 25 mmol/L (21-32); CREATININE < 0.2 mg/dL (0.55-1.3); GLUCOSE,RANDOM 106 mg/dL (74-106); POTASSIUM 3.9 mmol/L (3.5-5.1); SGOT/AST 34 U/L (15-37); SGPT/ALT 23 U/L (13-61); SODIUM 139 mmol/L (136-145); TOT PROT 5.4 g/dl (6.4-8.2)
[2019-12-25] MEDS ORDERED: FUROSEMIDE 40 MG/4 ML INJECTABLE VIAL IVPUSH ONE (12:02)
[2019-12-25] MEDS: FERROUS SO4 300 MG/5 ML ORAL SOLN UNIT DOSE CUPS GT SCH (12:20)
[2019-12-25] MEDS: AMINO ACIDS/PROTEIN HYDROLYS 30 ML LIQUID.PKT GT SCH (12:21)
[2019-12-25] MEDS: LACTOBACILLUS ACIDOPHILUS 1 TABLET GT SCH (12:21)
[2019-12-25] MEDS: TRIAMCINOLONE ACET 0.5% OINT 15 GM TUBE TP SCH ×2 (12:21→22:04)
[2019-12-25] MEDS: MULTIVIT-MINERALS ORAL LIQUID PO SCH (12:21)
[2019-12-25] MEDS: ASCORBIC ACID 500 MG TABLET (FP) PO SCH ×2 (12:22→22:03)
[2019-12-25] MEDS: COLLAGENASE CLOSTRIDIUM HIST. 30 GRAMS TUBE TP SCH (12:22)
[2019-12-25] MEDS: PANTOPRAZOLE SODIUM 40 MG VIAL IVPUSH SCH (12:22)
[2019-12-25] MEDS ORDERED: ACETAMINOPHEN 650 MG/20.3 ML ORAL SOLUTION (CUPS) PO ONE (16:30)
--- NOTE | 2019-12-25 16:48 | PN ---
Progress Note (short form) - Note Progress Note: Surgery POD #1 left hip, sacral and back wound debridement with Dr Queen. Nursing has been changing the wound dressings according to the orders and reports no new problems. Vital Signs Temp 99.4 F 12/25/19 15:25 Pulse 101 H 12/25/19 15:30 Resp 19 12/25/19 15:30 BP 95/67 12/25/19 15:25 Pulse Ox 100 12/25/19 15:31 Intake & Output 12/24/19 12/25/19 12/25/19 23:59 11:59 23:59 Intake Total 1615 1950 1750 Output Total 645 200 200 Balance 970 1750 1550 Intake: IV 1100 1100 800 Normal Saline - 1,000 ml 600 1100 800 @ 100 mls/hr IV ASDIR [facility] Rx#:[id number] IVPB 200 100 200 Oral 0 Tube Feeding 140 500 500 Tube Irrigant (Tube 175 250 250 Feeding Water) Output: Urine 625 200 200 [place] 125 200 200 Estimated Blood Loss 20 Other: Voiding Method Indwelling Catheter Indwelling Catheter Indwelling Catheter # Unmeasured Voids Maravilla 100 Bowel Movement Yes Yes: rectal Yes Body Mass Index (BMI) 16.2 CBC, BMP 12/25/19 09:40 12/25/19 09:40 GENERAL: Awake, resting comfortably, NAD, not oriented to voice or touch HEAD: Normal with no signs of trauma. NECK: trach in place LUNGS: vented LOWER EXTREMITIES: warm, well-perfused. Compartments soft, supple, +1 pitting edema at feet. Contracted left hip: @ 14x12 stage 4 ulcer clean with bleeding tissue and muscle. no significant d/c or odor. appropriate to status. with worsening soft eschar and slough, and foul smelling drainage Sacrum: 3x5cm stage 4 ulcer with fibrinous tissue, clean with no significant d/c, or foul odor. Upper Back: [id number] clean stage 3 ulcer, no d/c or foul odor. 5cm x 4cm stage 3 ulcer, right t-spine, Midline t- spine 6x5 stage 4 ulcer with bone exposed and 1cm of undermining superior and @9 O'clock position and 6 O'clock position. well defined boarders, clean, abrasions and early breakdown over right buttocks. All wounds dressed on rounds. Problem List - Problems (1) Pressure ulcer of hip Assessment/Plan: Patient with multiple pressure ulcers of various stages over left ankle/foot, b/l hips, sarcum, and back s/p multiple debridements. Some overall improvement seen after debridements. -Agressive turning and positioning -Reposition every two hours while in bed -Air mattress as ordered- discussed -Use drawsheets and Trendelenburg when repositioning to reduce friction and shear -Manageincontinence via timely cleansing, use of appropriate incontinence disposables and use of barrier ointment to intact skin- Phytoplex -Ensure adequate hydration/nutrition, supplementation per primary team -Ensure off-loading to all bony areas (heels, ankles, hips and tailbone) with Allevyn/Optifoam- Heel pads -Clean open wounds with normal saline and apply santyl as ordered. Evaluation and plan discussed with Dr Madrid. Code(s): L89.209 - PRESSURE ULCER OF UNSPECIFIED HIP, UNSPECIFIED STAGE (2) Pressure ulcer, upper back Code(s): L89.109 - PRESSURE ULCER OF UNSP PART OF BACK, UNSPECIFIED STAGE (3) Pressure ulcer of back Code(s): L89.109 - PRESSURE ULCER OF UNSP PART OF BACK, UNSPECIFIED STAGE Qualifiers: Pressure injury stage: stage 3 Qualified Code(s): L89.103 - Pressure ulcer of unspecified part of back, stage 3
[2019-12-25] MEDS: ACETAMINOPHEN 650 MG/20.3 ML ORAL SOLUTION (CUPS) PO PRN (22:26)
[2019-12-26] MEDS: VANCOMYCIN 250 MG/5 ML ORAL SOLUTION PO SCH ×5 (00:10→23:46)
[2019-12-26] MEDS ORDERED: DEXTROSE 5%-WATER 100 ML IVPB ONE ×3 (01:04→18:36)
[2019-12-26] MEDS ORDERED: MEROPENEM 1 GM VIAL (RESTRICTED TO ID) IVPB ONE ×3 (01:04→18:36)
[2019-12-26] MEDS: MEROPENEM 1 GM in DEXTROSE 5%-WATER 100 ML IVPB SCH ×3 (01:37→18:52)
[2019-12-26] MEDS: BANATROL PLUS POWDER PACKET GT SCH ×3 (05:06→22:45)
[2019-12-26] MEDS ORDERED: FUROSEMIDE 40 MG/4 ML INJECTABLE VIAL IVPUSH ONE (08:15)
[2019-12-26] MEDS: AMINO ACIDS/PROTEIN HYDROLYS 30 ML LIQUID.PKT GT SCH (08:31)
--- NOTE | 2019-12-26 10:17 | PN ---
Progress Note, Physician Chief Complaint: Pneumonia Chronic respiratory failure VRE Anemia Cachexia History of Present Illness: NAD mec vent Operative Date: 12/10/19 Pre-Operative Diagnosis: Right hip necrotic ulcer, sacral necrotic ulcer Operation: excisional debridement skin, subcutaneous tissue, muscle right hip. Excisional debridement skin, subcutaneous tissue sacrum. Post-Operative Diagnosis: Same as Pre-op Surgeon: Rich Madrid Anesthesia: MAC Estimated Blood Loss (mls): 30 Operative Report Dictated: Yes + diarrhea+ rectal tube CT chest shows improvement in pneumonia in the left lung On Meropenem, PO Vanco for cdiff + Valacyclovir for zoster POD #2 left hip, sacral and back wound debridement with surgery - Current Medication List Current Medications: Active Medications Acetaminophen (Tylenol Oral Solution -) 650 mg PO Q6H PRN PRN Reason: fever Last Admin: 12/25/19 22:26 Dose: 650 mg Documented by: Amino Acids (Prosource No Carb Liquid Pkt) 30 ml GT DAILY@0800 [facility] Last Admin: 12/26/19 08:31 Dose: 30 ml Documented by: Ascorbic Acid (Vitamin C -) 500 mg PO BID [facility] Last Admin: 12/25/19 22:03 Dose: 500 mg Documented by: Banana Based Medical Food (Banatrol Plus Powder Packet) 1 packet GT TID [facility] Last Admin: 12/26/19 05:06 Dose: 1 packet Documented by: Collagenase (Santyl -) 1 applic TP DAILY [facility]; Protocol Last Admin: 12/25/19 12:22 Dose: 1 applic Documented by: Ferrous Sulfate (Feosol) 300 mg GT DAILY [facility] Last Admin: 12/25/19 12:20 Dose: 300 mg Documented by: Meropenem 1 gm/ Dextrose 100 mls @ 200 mls/hr IVPB Q8H-IV [facility] Last Admin: 12/26/19 01:37 Dose: 200 mls/hr Documented by: Sodium Chloride (Normal Saline -) 1,000 mls @ 100 mls/hr IV ASDIR [facility] Last Admin: 12/25/19 18:26 Dose: Not Given Documented by: Lactobacillus Acidophilus (Bacid -) 1 tab GT DAILY [facility] Last Admin: 12/25/19 12:21 Dose: 1 tab Documented by: Multivitamins/Minerals (Certavite-Antioxidant Liquid) 15 ml PO DAILY [facility] Last Admin: 12/25/19 12:21 Dose: 15 ml Documented by: Pantoprazole Sodium (Protonix Iv) 40 mg IVPUSH DAILY [facility] Last Admin: 12/25/19 12:22 Dose: 40 mg Documented by: Triamcinolone Acetonide (Aristocort 0.5% Ointment -) 1 applic TP BID [facility] Last Admin: 12/25/19 22:04 Dose: 1 applic Documented by: Vancomycin HCl (Vancomycin Oral Solution) 125 mg PO Q6HPO [facility] Last Admin: 12/26/19 05:05 Dose: 125 mg Documented by: - Objective Vital Signs: Vital Signs Temperature 99.5 F 12/26/19 03:37 Pulse Rate 95 H 12/26/19 03:37 Respiratory Rate 26 H 12/26/19 08:02 Blood Pressure 94/50 L 12/26/19 03:37 O2 Sat by Pulse Oximetry (%) 100 12/26/19 08:02 Constitutional: Yes: Well Nourished, No Distress, Calm Cardiovascular: Yes: Regular Rate and Rhythm Respiratory: Yes: Regular, Mechanically Ventilated, Rhonchi (diffuse) Gastrointestinal: Yes: Normal Bowel Sounds, Soft Genitourinary: Yes: Maravilla Present Musculoskeletal: Yes: Muscle Weakness Extremities: Yes: Other (contracted) Edema: Yes (generalized) Peripheral Pulses WNL: Yes Neurological: Yes: Pre-Existing Deficit Labs: CBC, BMP 12/25/19 09:40 12/25/19 09:40 INR, PTT INR 1.73 (0.83-1.09) H 12/09/19 12:34 Problem List - Problems (1) Pneumonia Assessment/Plan: -Recurrent -IV meropenem -CT chest shows improvement -Pulmonary and ID consult -[facility] vent -Instructed nursing staff to make sure HOB >45 degrees at all times Problems reviewed: Yes Code(s): J18.9 - PNEUMONIA, UNSPECIFIED ORGANISM (2) Sepsis Assessment/Plan: -resolved Problems reviewed: Yes Code(s): A41.9 - SEPSIS, UNSPECIFIED ORGANISM (3) Anemia Assessment/Plan: -Previously TAM -Received 1 U PRBC yesterday -Continue feosol BID -Iron stores improved -Transfuse only if Hg<7.0 to avoid fluid overload -Injectafer once this admission - on hold Problems reviewed: Yes Code(s): D64.9 - ANEMIA, UNSPECIFIED Qualifiers: (4) Cerebral palsy Problems reviewed: Yes Code(s): G80.9 - CEREBRAL PALSY, UNSPECIFIED Qualifiers: (5) Chronic respiratory failure Assessment/Plan: -[facility] vent -Pulmonary on board -Bronchodilators -Not a candidate for weaning at this time Problems reviewed: Yes Code(s): J96.10 - CHRONIC RESPIRATORY FAILURE, UNSP W HYPOXIA OR HYPERCAPNIA Qualifiers: (6) Functional quadriplegia Problems reviewed: Yes Code(s): R53.2 - FUNCTIONAL QUADRIPLEGIA (7) Decubital ulcer Assessment/Plan: -Seen by Vascular + General surgery -s/p debridement -IV abx -Agressive turning and positioning -Reposition every two hours while in bed -Air mattress as ordered- discussed -Use drawsheets and Trendelenburg when repositioning to reduce friction and shear -Manageincontinence via timely cleansing, use of appropriate incontinence disposables and use of barrier ointment to intact skin- Phytoplex -Ensure adequate hydration/nutrition, supplementation per primary team -Ensure off-loading to all bony areas (heels, ankles, hips and tailbone) with Allevyn/Optifoam- Heel pads -Clean open wounds with normal saline and apply santyl as ordered. Problems reviewed: Yes Code(s): L89.90 - PRESSURE ULCER OF UNSPECIFIED SITE, UNSPECIFIED STAGE (8) Severe malnutrition Assessment/Plan: -Prosource -Multivitamin -Vitamin C Problems reviewed: Yes Code(s): E43 - UNSPECIFIED SEVERE PROTEIN-CALORIE MALNUTRITION Assessment/Plan See problem list
[2019-12-26] MEDS: LACTOBACILLUS ACIDOPHILUS 1 TABLET GT SCH (10:50)
[2019-12-26] MEDS: FERROUS SO4 300 MG/5 ML ORAL SOLN UNIT DOSE CUPS GT SCH (10:50)
[2019-12-26] MEDS: MULTIVIT-MINERALS ORAL LIQUID PO SCH (10:58)
[2019-12-26] MEDS: PANTOPRAZOLE SODIUM 40 MG VIAL IVPUSH SCH (10:58)
[2019-12-26] MEDS: TRIAMCINOLONE ACET 0.5% OINT 15 GM TUBE TP SCH ×2 (10:59→22:45)
[2019-12-26] MEDS: ASCORBIC ACID 500 MG TABLET (FP) PO SCH ×2 (10:59→22:45)
[2019-12-26 13:01] LABS: BASO % 0.6 % (0-2.0); EOS % 1.8 % (0-4.5); HEMATOCRIT 26.3 % (35.4-49); HEMOGLOBIN 8.7 GM/dL (11.7-16.9); LYMPH % 8.8 % (8-40); MCH 30.5 pg (25.7-33.7); MCHC 33.2 g/dl (32.0-35.9); MEAN PLT VOLUME 6.4 fl (7.5-11.1); MONO % 7.1 % (3.8-10.2); NEUT % 81.7 % (42.8-82.8); PLATELET COUNT 623 K/MM3 (134-434); RBC 2.86 M/mm3 (4.00-5.60); RDW 17.2 % (11.9-15.9); WHITE BLOOD COUNT 14.5 K/mm3 (4.0-10.0)
--- NOTE | 2019-12-26 14:35 | PN ---
Progress Note (short form) - Note Progress Note: Vented. Awake in NAD. No acute events overnight. Intake & Output 12/23/19 12/24/19 12/25/19 12/26/19 23:59 23:59 23:59 23:59 Intake Total 4500 2415 3700 1850 Output Total 300 645 900 400 Balance 4200 1770 2800 1450 Last Vital Signs Temp Pulse Resp BP Pulse Ox 98.2 F 88 19 138/86 100 12/26/19 07:30 12/26/19 07:30 12/26/19 12:00 12/26/19 07:30 12/26/19 12:00 Active Medications Acetaminophen (Tylenol Oral Solution -) 650 mg PO Q6H PRN PRN Reason: fever Last Admin: 12/25/19 22:26 Dose: 650 mg Documented by: Amino Acids (Prosource No Carb Liquid Pkt) 30 ml GT DAILY@0800 [facility] Last Admin: 12/26/19 08:31 Dose: 30 ml Documented by: Ascorbic Acid (Vitamin C -) 500 mg PO BID [facility] Last Admin: 12/26/19 10:59 Dose: 500 mg Documented by: Banana Based Medical Food (Banatrol Plus Powder Packet) 1 packet GT TID [facility] Last Admin: 12/26/19 05:06 Dose: 1 packet Documented by: Collagenase (Santyl -) 1 applic TP DAILY [facility]; Protocol Last Admin: 12/25/19 12:22 Dose: 1 applic Documented by: Ferrous Sulfate (Feosol) 300 mg GT DAILY [facility] Last Admin: 12/26/19 10:50 Dose: 300 mg Documented by: Meropenem 1 gm/ Dextrose 100 mls @ 200 mls/hr IVPB Q8H-IV [facility] Last Admin: 12/26/19 01:37 Dose: 200 mls/hr Documented by: Lactobacillus Acidophilus (Bacid -) 1 tab GT DAILY [facility] Last Admin: 12/26/19 10:50 Dose: 1 tab Documented by: Multivitamins/Minerals (Certavite-Antioxidant Liquid) 15 ml PO DAILY [facility] Last Admin: 12/26/19 10:58 Dose: 15 ml Documented by: Pantoprazole Sodium (Protonix Iv) 40 mg IVPUSH DAILY [facility] Last Admin: 12/26/19 10:58 Dose: 40 mg Documented by: Triamcinolone Acetonide (Aristocort 0.5% Ointment -) 1 applic TP BID [facility] Last Admin: 12/26/19 10:59 Dose: 1 applic Documented by: Vancomycin HCl (Vancomycin Oral Solution) 125 mg PO Q6HPO [facility] Last Admin: 12/26/19 11:08 Dose: 125 mg Documented by: Gen: vented, awake Heart: RRR Lung: scattered rhonchi Abd: soft, nontender Ext: contracted, no edema Laboratory Results - last 24 hr 12/25/19 12/26/19 12:53 12:28 WBC 14.5 H RBC 2.86 L Hgb 8.7 L Hct 26.3 L MCV 92.0 MCH 30.5 MCHC 33.2 RDW 17.2 H Plt Count 623 H MPV 6.4 L Absolute Neuts (auto) 11.8 H Neutrophils % 81.7 Lymphocytes % 8.8 Monocytes % 7.1 Eosinophils % 1.8 Basophils % 0.6 Nucleated RBC % 0 Blood Type O POSITIVE Antibody Screen Positive Prewarmed Antibody Srcn Negative Antibody Identification Cold agg Antigen Identification No Result Required. Crossmatch See Detail A/P Pneumonia Infected Decubitus Ulcers h/o C diff colitis Severe Sepsis Lactic Acidosis Chronic Respiratory Failure Cerebral Palsy Parkinsons Anemia - ABX - monitor urine output, creatinine - local wound care - continue volume assist control - poor candidate for weaning - enteral feeds - DVT/GI prophylaxis Dr Aleaxndre
[2019-12-26] MEDS: COLLAGENASE CLOSTRIDIUM HIST. 30 GRAMS TUBE TP SCH (15:00)
[2019-12-26] MEDS: ACETAMINOPHEN 650 MG/20.3 ML ORAL SOLUTION (CUPS) PO PRN (15:55)
[2019-12-26] MEDS ORDERED: PT OWN MED DRAWER 7, Y5N ONE (22:35)
[2019-12-27] MEDS ORDERED: DEXTROSE 5%-WATER 100 ML IVPB ONE ×3 (01:49→17:17)
[2019-12-27] MEDS ORDERED: MEROPENEM 1 GM VIAL (RESTRICTED TO ID) IVPB ONE ×3 (01:49→17:17)
[2019-12-27] MEDS: MEROPENEM 1 GM in DEXTROSE 5%-WATER 100 ML IVPB SCH ×3 (02:40→17:27)
[2019-12-27] MEDS: VANCOMYCIN 250 MG/5 ML ORAL SOLUTION PO SCH ×3 (05:36→17:49)
[2019-12-27] MEDS: BANATROL PLUS POWDER PACKET GT SCH ×3 (05:36→21:14)
[2019-12-27] MEDS: AMINO ACIDS/PROTEIN HYDROLYS 30 ML LIQUID.PKT GT SCH (09:00)
[2019-12-27] MEDS ORDERED: PT OWN MED DRAWER 7, Y5N ONE ×2 (09:52→21:06)
[2019-12-27 10:01] LABS: BASO % 0.4 % (0-2.0); EOS % 1.5 % (0-4.5); HEMATOCRIT 27.1 % (35.4-49); HEMOGLOBIN 8.9 GM/dL (11.7-16.9); LYMPH % 7.4 % (8-40); MCH 29.8 pg (25.7-33.7); MCHC 32.8 g/dl (32.0-35.9); MEAN CELL VOLUME 90.7 fl (80-96); MEAN PLT VOLUME 6.8 fl (7.5-11.1); MONO % 4.9 % (3.8-10.2); NEUT % 85.8 % (42.8-82.8); PLATELET COUNT 676 K/MM3 (134-434); RBC 2.98 M/mm3 (4.00-5.60); RDW 17.8 % (11.9-15.9); WHITE BLOOD COUNT 16.9 K/mm3 (4.0-10.0)
[2019-12-27] MEDS: ASCORBIC ACID 500 MG TABLET (FP) PO SCH ×2 (10:02→21:14)
[2019-12-27] MEDS: LACTOBACILLUS ACIDOPHILUS 1 TABLET GT SCH (10:02)
[2019-12-27] MEDS: TRIAMCINOLONE ACET 0.5% OINT 15 GM TUBE TP SCH ×2 (10:03→21:14)
[2019-12-27] MEDS: FERROUS SO4 300 MG/5 ML ORAL SOLN UNIT DOSE CUPS GT SCH (10:04)
[2019-12-27] MEDS: MULTIVIT-MINERALS ORAL LIQUID PO SCH (10:04)
[2019-12-27] MEDS: PANTOPRAZOLE SODIUM 40 MG VIAL IVPUSH SCH (10:04)
--- NOTE | 2019-12-27 10:37 | PN ---
Progress Note, Physician Chief Complaint: Pneumonia Chronic respiratory failure VRE Anemia Cachexia History of Present Illness: NAD [facility] vent Operative Date: 12/10/19 Pre-Operative Diagnosis: Right hip necrotic ulcer, sacral necrotic ulcer Operation: excisional debridement skin, subcutaneous tissue, muscle right hip. Excisional debridement skin, subcutaneous tissue sacrum. Post-Operative Diagnosis: Same as Pre-op Surgeon: Rich Madrid Anesthesia: MAC Estimated Blood Loss (mls): 30 Operative Report Dictated: Yes + diarrhea+ rectal tube CT chest shows improvement in pneumonia in the left lung On Meropenem, PO Vanco for cdiff + Valacyclovir for zoster POD #2 left hip, sacral and back wound debridement with surgery - Current Medication List Current Medications: Active Medications Acetaminophen (Tylenol Oral Solution -) 650 mg PO Q6H PRN PRN Reason: fever Last Admin: 12/26/19 15:55 Dose: 650 mg Documented by: Amino Acids (Prosource No Carb Liquid Pkt) 30 ml GT DAILY@0800 [facility] Last Admin: 12/27/19 09:00 Dose: 30 ml Documented by: Ascorbic Acid (Vitamin C -) 500 mg PO BID [facility] Last Admin: 12/27/19 10:02 Dose: 500 mg Documented by: Banana Based Medical Food (Banatrol Plus Powder Packet) 1 packet GT TID [facility] Last Admin: 12/27/19 05:36 Dose: 1 packet Documented by: Collagenase (Santyl -) 1 applic TP DAILY [facility]; Protocol Last Admin: 12/26/19 15:00 Dose: 1 applic Documented by: Ferrous Sulfate (Feosol) 300 mg GT DAILY [facility] Last Admin: 12/27/19 10:04 Dose: 300 mg Documented by: Meropenem 1 gm/ Dextrose 100 mls @ 200 mls/hr IVPB Q8H-IV [facility] Last Admin: 12/27/19 10:08 Dose: 200 mls/hr Documented by: Lactobacillus Acidophilus (Bacid -) 1 tab GT DAILY [facility] Last Admin: 12/27/19 10:02 Dose: 1 tab Documented by: Multivitamins/Minerals (Certavite-Antioxidant Liquid) 15 ml PO DAILY [facility] Last Admin: 12/27/19 10:04 Dose: 15 ml Documented by: Pantoprazole Sodium (Protonix Iv) 40 mg IVPUSH DAILY [facility] Last Admin: 12/27/19 10:04 Dose: 40 mg Documented by: Triamcinolone Acetonide (Aristocort 0.5% Ointment -) 1 applic TP BID [facility] Last Admin: 12/27/19 10:03 Dose: 1 applic Documented by: Vancomycin HCl (Vancomycin Oral Solution) 125 mg PO Q6HPO [facility] Last Admin: 12/27/19 05:36 Dose: 125 mg Documented by: - Objective Vital Signs: Vital Signs Temperature 99.1 F 12/27/19 10:00 Pulse Rate 98 H 12/27/19 10:00 Respiratory Rate 22 H 12/27/19 10:00 Blood Pressure 116/60 12/27/19 10:00 O2 Sat by Pulse Oximetry (%) 99 12/27/19 10:00 Constitutional: Yes: No Distress, Calm, Cachectic Cardiovascular: Yes: Regular Rate and Rhythm Respiratory: Yes: Regular, Mechanically Ventilated, Rhonchi (diffuse) Gastrointestinal: Yes: Normal Bowel Sounds, Soft Genitourinary: Yes: Maravilla Present Musculoskeletal: Yes: Muscle Weakness Extremities: Yes: Other (contracted) Edema: Yes (generalized) Peripheral Pulses WNL: Yes Neurological: Yes: Pre-Existing Deficit Labs: CBC, BMP 12/27/19 09:13 12/25/19 09:40 INR, PTT INR 1.73 (0.83-1.09) H 12/09/19 12:34 Problem List - Problems (1) Pneumonia Assessment/Plan: -Recurrent -IV meropenem -CT chest shows improvement -Pulmonary and ID consult -[facility] vent -Instructed nursing staff to make sure HOB >45 degrees at all times Problems reviewed: Yes Code(s): J18.9 - PNEUMONIA, UNSPECIFIED ORGANISM (2) Sepsis Assessment/Plan: -resolved Problems reviewed: Yes Code(s): A41.9 - SEPSIS, UNSPECIFIED ORGANISM (3) Anemia Assessment/Plan: -Previously TAM -Received 1 U PRBC yesterday -Continue feosol BID -Iron stores improved -Transfuse only if Hg<7.0 to avoid fluid overload -Injectafer once this admission -AC on hold Problems reviewed: Yes Code(s): D64.9 - ANEMIA, UNSPECIFIED Qualifiers: (4) Cerebral palsy Problems reviewed: Yes Code(s): G80.9 - CEREBRAL PALSY, UNSPECIFIED Qualifiers: (5) Chronic respiratory failure Assessment/Plan: -Mech vent -Pulmonary on board -Bronchodilators -Not a candidate for weaning at this time Problems reviewed: Yes Code(s): J96.10 - CHRONIC RESPIRATORY FAILURE, UNSP W HYPOXIA OR HYPERCAPNIA Qualifiers: (6) Functional quadriplegia Problems reviewed: Yes Code(s): R53.2 - FUNCTIONAL QUADRIPLEGIA (7) Decubital ulcer Assessment/Plan: -Seen by Vascular + General surgery -s/p debridement -IV abx -Agressive turning and positioning -Reposition every two hours while in bed -Air mattress as ordered- discussed -Use drawsheets and Trendelenburg when repositioning to reduce friction and shear -Manageincontinence via timely cleansing, use of appropriate incontinence disposables and use of barrier ointment to intact skin- Phytoplex -Ensure adequate hydration/nutrition, supplementation per primary team -Ensure off-loading to all bony areas (heels, ankles, hips and tailbone) with Allevyn/Optifoam- Heel pads -Clean open wounds with normal saline and apply santyl as ordered. Problems reviewed: Yes Code(s): L89.90 - PRESSURE ULCER OF UNSPECIFIED SITE, UNSPECIFIED STAGE (8) Severe malnutrition Assessment/Plan: -Prosource -Multivitamin -Vitamin C Problems reviewed: Yes Code(s): E43 - UNSPECIFIED SEVERE PROTEIN-CALORIE MALNUTRITION (9) Diarrhea Assessment/Plan: -Rectal tube -On PO Vanco Problems reviewed: Yes Code(s): R19.7 - DIARRHEA, UNSPECIFIED Assessment/Plan See problem list
[2019-12-27] MEDS: COLLAGENASE CLOSTRIDIUM HIST. 30 GRAMS TUBE TP SCH (13:00)
--- NOTE | 2019-12-27 13:11 | PN ---
Progress Note (short form) - Note Progress Note: Vented. Awake in NAD. No acute events overnight. Intake & Output 12/24/19 12/25/19 12/26/19 12/27/19 23:59 23:59 23:59 23:59 Intake Total 2415 3700 3400 1480 Output Total 906 203 9058 500 Balance 1770 2800 1660 980 Last Vital Signs Temp Pulse Resp BP Pulse Ox 99.1 F 98 H 26 H 116/60 98 12/27/19 10:00 12/27/19 10:00 12/27/19 12:05 12/27/19 10:00 12/27/19 12:05 Active Medications Acetaminophen (Tylenol Oral Solution -) 650 mg PO Q6H PRN PRN Reason: fever Last Admin: 12/26/19 15:55 Dose: 650 mg Documented by: Amino Acids (Prosource No Carb Liquid Pkt) 30 ml GT DAILY@0800 [facility] Last Admin: 12/27/19 09:00 Dose: 30 ml Documented by: Ascorbic Acid (Vitamin C -) 500 mg PO BID [facility] Last Admin: 12/27/19 10:02 Dose: 500 mg Documented by: Banana Based Medical Food (Banatrol Plus Powder Packet) 1 packet GT TID [facility] Last Admin: 12/27/19 05:36 Dose: 1 packet Documented by: Collagenase (Santyl -) 1 applic TP DAILY [facility]; Protocol Last Admin: 12/26/19 15:00 Dose: 1 applic Documented by: Ferrous Sulfate (Feosol) 300 mg GT DAILY [facility] Last Admin: 12/27/19 10:04 Dose: 300 mg Documented by: Meropenem 1 gm/ Dextrose 100 mls @ 200 mls/hr IVPB Q8H-IV [facility] Last Admin: 12/27/19 10:08 Dose: 200 mls/hr Documented by: Lactobacillus Acidophilus (Bacid -) 1 tab GT DAILY [facility] Last Admin: 12/27/19 10:02 Dose: 1 tab Documented by: Multivitamins/Minerals (Certavite-Antioxidant Liquid) 15 ml PO DAILY [facility] Last Admin: 12/27/19 10:04 Dose: 15 ml Documented by: Pantoprazole Sodium (Protonix Iv) 40 mg IVPUSH DAILY [facility] Last Admin: 12/27/19 10:04 Dose: 40 mg Documented by: Triamcinolone Acetonide (Aristocort 0.5% Ointment -) 1 applic TP BID [facility] Last Admin: 12/27/19 10:03 Dose: 1 applic Documented by: Vancomycin HCl (Vancomycin Oral Solution) 125 mg PO Q6HPO [facility] Last Admin: 12/27/19 12:26 Dose: 125 mg Documented by: Gen: vented, awake Heart: RRR Lung: scattered rhonchi Abd: soft, nontender Ext: contracted, no edema Laboratory Results - last 24 hr 12/27/19 09:13 WBC 16.9 H RBC 2.98 L Hgb 8.9 L Hct 27.1 L MCV 90.7 MCH 29.8 MCHC 32.8 RDW 17.8 H Plt Count 676 H MPV 6.8 L Absolute Neuts (auto) 14.6 H Neutrophils % 85.8 H Lymphocytes % 7.4 L Monocytes % 4.9 Eosinophils % 1.5 Basophils % 0.4 Nucleated RBC % 0 A/P Pneumonia Infected Decubitus Ulcers h/o C diff colitis Severe Sepsis Lactic Acidosis Chronic Respiratory Failure Cerebral Palsy Parkinsons Anemia Wasted/Malnourished - ABX - monitor urine output, creatinine - local wound care - continue volume assist control - poor candidate for weaning - enteral feeds - DVT/GI prophylaxis Dr Alexandre
[2019-12-28] MEDS: VANCOMYCIN 250 MG/5 ML ORAL SOLUTION PO SCH ×4 (00:30→17:11)
[2019-12-28] MEDS ORDERED: DEXTROSE 5%-WATER 100 ML IVPB ONE ×3 (01:03→16:36)
[2019-12-28] MEDS ORDERED: MEROPENEM 1 GM VIAL (RESTRICTED TO ID) IVPB ONE ×3 (01:03→16:36)
[2019-12-28] MEDS: MEROPENEM 1 GM in DEXTROSE 5%-WATER 100 ML IVPB SCH ×3 (01:07→17:10)
[2019-12-28] MEDS ORDERED: PT OWN MED DRAWER 7, Y5N ONE ×3 (04:57→22:21)
[2019-12-28] MEDS: BANATROL PLUS POWDER PACKET GT SCH ×3 (05:05→22:25)
--- NOTE | 2019-12-28 08:17 | PN ---
Progress Note, Physician Chief Complaint: EVENTS AND NOTES REVIEWED ASLEEP ON VENT SUPPORT - Current Medication List Current Medications: Active Medications Acetaminophen (Tylenol Oral Solution -) 650 mg PO Q6H PRN PRN Reason: fever Last Admin: 12/26/19 15:55 Dose: 650 mg Documented by: Amino Acids (Prosource No Carb Liquid Pkt) 30 ml GT DAILY@0800 [facility] Last Admin: 12/27/19 09:00 Dose: 30 ml Documented by: Ascorbic Acid (Vitamin C -) 500 mg PO BID [facility] Last Admin: 12/27/19 21:14 Dose: 500 mg Documented by: Banana Based Medical Food (Banatrol Plus Powder Packet) 1 packet GT TID [facility] Last Admin: 12/28/19 05:05 Dose: 1 packet Documented by: Sri (John -) 1 applic TP DAILY [facility]; Protocol Last Admin: 12/27/19 13:00 Dose: 1 applic Documented by: Ferrous Sulfate (Feosol) 300 mg GT DAILY [facility] Last Admin: 12/27/19 10:04 Dose: 300 mg Documented by: Meropenem 1 gm/ Dextrose 100 mls @ 200 mls/hr IVPB Q8H-IV [facility] Last Admin: 12/28/19 01:07 Dose: 200 mls/hr Documented by: Lactobacillus Acidophilus (Bacid -) 1 tab GT DAILY [facility] Last Admin: 12/27/19 10:02 Dose: 1 tab Documented by: Multivitamins/Minerals (Certavite-Antioxidant Liquid) 15 ml PO DAILY [facility] Last Admin: 12/27/19 10:04 Dose: 15 ml Documented by: Pantoprazole Sodium (Protonix Iv) 40 mg IVPUSH DAILY [facility] Last Admin: 12/27/19 10:04 Dose: 40 mg Documented by: Triamcinolone Acetonide (Aristocort 0.5% Ointment -) 1 applic TP BID [facility] Last Admin: 12/27/19 21:14 Dose: 1 applic Documented by: Vancomycin HCl (Vancomycin Oral Solution) 125 mg PO Q6HPO [facility] Last Admin: 12/28/19 05:05 Dose: 125 mg Documented by: - Objective Vital Signs: Vital Signs Temperature 98.4 F 12/28/19 05:29 Pulse Rate 104 H 12/28/19 05:29 Respiratory Rate 20 12/28/19 05:29 Blood Pressure 136/54 L 12/28/19 05:29 O2 Sat by Pulse Oximetry (%) 99 12/28/19 05:29 Constitutional: Yes: Mild Distress Cardiovascular: Yes: Pulse Irregular Respiratory: Yes: Diminished, Mechanically Ventilated Gastrointestinal: Yes: Soft (G AND J TUBES) Genitourinary: Yes: Maravilla Present Musculoskeletal: Yes: Muscle Weakness Integumentary: Yes: Pressure Ulcer Wound/Incision: Yes: Dressing Dry and Intact Neurological: Yes: Pre-Existing Deficit Labs: CBC, BMP 12/27/19 09:13 12/25/19 09:40 INR, PTT INR 1.73 (0.83-1.09) H 12/09/19 12:34 Problem List - Problems (1) Lactic acidosis Code(s): E87.2 - ACIDOSIS (2) Severe sepsis Code(s): A41.9 - SEPSIS, UNSPECIFIED ORGANISM; R65.20 - SEVERE SEPSIS WITHOUT SEPTIC SHOCK (3) Anemia Code(s): D64.9 - ANEMIA, UNSPECIFIED Qualifiers: (4) Back wound Code(s): S21.209A - UNSP OPN WND UNSP BK WL OF THORAX W/O PENET THOR CAV, INIT (5) COPD (chronic obstructive pulmonary disease) Code(s): J44.9 - CHRONIC OBSTRUCTIVE PULMONARY DISEASE, UNSPECIFIED Qualifiers: (6) Cerebral palsy Code(s): G80.9 - CEREBRAL PALSY, UNSPECIFIED Qualifiers: (7) Chronic respiratory failure Code(s): J96.10 - CHRONIC RESPIRATORY FAILURE, UNSP W HYPOXIA OR HYPERCAPNIA Qualifiers: (8) Pleural effusion Code(s): J90 - PLEURAL EFFUSION, NOT ELSEWHERE CLASSIFIED (9) Pneumonia Code(s): J18.9 - PNEUMONIA, UNSPECIFIED ORGANISM (10) Pressure ulcer of back Code(s): L89.109 - PRESSURE ULCER OF UNSP PART OF BACK, UNSPECIFIED STAGE Qualifiers: Pressure injury stage: stage 3 Qualified Code(s): L89.103 - Pressure ulcer of unspecified part of back, stage 3 (11) Seizure disorder Code(s): G40.909 - EPILEPSY, UNSP, NOT INTRACTABLE, WITHOUT STATUS EPILEPTICUS (12) Severe malnutrition Code(s): E43 - UNSPECIFIED SEVERE PROTEIN-CALORIE MALNUTRITION Assessment/Plan TRANSFUSE PRBC NOW FOR LOW H/H POOR CANDIDATE AT THIS TIME FOR VENT WEANING ID CONSULT FOR ABX PNA/WOUND ULCERS APPRECIATED ON MERIPENOM AND VANCO PO SURGICAL EVAL FOR WOUND DEBRIDEMENT APPRECIATED S/P DEBRIDEMENT IN THE O.R. WOUND CARE DAILY OPTIMIZE NUTRITION FOR WOUND HEALING FULL CODE STATUS GOALS OF CARE NEED TO BE REVIEWED WITH HCP POOR OVERALL QUALITY OF LIFE MORPHINE PRN
[2019-12-28] MEDS: AMINO ACIDS/PROTEIN HYDROLYS 30 ML LIQUID.PKT GT SCH (11:40)
[2019-12-28] MEDS: MULTIVIT-MINERALS ORAL LIQUID PO SCH (11:41)
[2019-12-28] MEDS: ASCORBIC ACID 500 MG TABLET (FP) PO SCH ×2 (11:41→22:25)
[2019-12-28] MEDS: ACETAMINOPHEN 650 MG/20.3 ML ORAL SOLUTION (CUPS) PO PRN (11:41)
[2019-12-28] MEDS: LACTOBACILLUS ACIDOPHILUS 1 TABLET GT SCH (11:41)
[2019-12-28] MEDS: FERROUS SO4 300 MG/5 ML ORAL SOLN UNIT DOSE CUPS GT SCH (11:42)
[2019-12-28] MEDS: PANTOPRAZOLE SODIUM 40 MG VIAL IVPUSH SCH (11:42)
[2019-12-28] MEDS: COLLAGENASE CLOSTRIDIUM HIST. 30 GRAMS TUBE TP SCH (11:42)
[2019-12-28] MEDS: TRIAMCINOLONE ACET 0.5% OINT 15 GM TUBE TP SCH ×2 (11:42→22:25)
[2019-12-28 13:04] LABS: BASO % 0.4 % (0-2.0); EOS % 2.6 % (0-4.5); HEMATOCRIT 28.6 % (35.4-49); HEMOGLOBIN 9.4 GM/dL (11.7-16.9); LYMPH % 13.7 % (8-40); MCH 30.4 pg (25.7-33.7); MCHC 32.8 g/dl (32.0-35.9); MEAN CELL VOLUME 92.7 fl (80-96); MEAN PLT VOLUME 6.9 fl (7.5-11.1); MONO % 5.7 % (3.8-10.2); NEUT % 77.6 % (42.8-82.8); PLATELET COUNT 646 K/MM3 (134-434); RBC 3.08 M/mm3 (4.00-5.60); RDW 17.9 % (11.9-15.9); WHITE BLOOD COUNT 11.1 K/mm3 (4.0-10.0)
--- NOTE | 2019-12-28 13:35 | PN ---
Progress Note (short form) - Note Progress Note: resting comfortably trach to vent Vital Signs Period Temp Pulse Resp BP Sys/Gomez Pulse Ox Last 24 Hr 98.4 F-99.0 F 98-105 18-26 101-147/54-74 97-99 cor-rrr lungs decreased bs at bases abd soft,GT, JT, less erythema of the abdomen multiple decubiti with dressing intact CBC, BMP 12/28/19 12:40 12/25/19 09:40 Microbiology 12/24/19 12:22 Bone Gram Stain - Final 12/24/19 12:22 Bone Tissue Culture - Final Escherichia Coli Esbl Sand Worker Vr Ec Faecalis Proteus Mirabilus - Esbl Produ 12/24/19 12:22 Bone Anaerobic Culture - Final 12/07/19 12:10 Sputum - Endotrachea Suction/Ventilator Gram Stain - Final 12/07/19 12:10 Sputum - Endotrachea Suction/Ventilator Sputum Culture - Final Proteus Mirabilus - Esbl Produ Pseudomonas Aeruginosa Klebsiella Pneumoniae - Esbl 12/07/19 18:20 Hip - Left Gram Stain - Final 12/07/19 18:20 Hip - Left Wound Culture - Final Pseudomonas Aeruginosa Proteus Mirabilus - Esbl Produ Vr Ec Faecium 12/10/19 20:45 Stool Clostridioides difficile Antigen - Final 12/10/19 20:45 Stool Clostridioides difficile Toxin Assay - Final 12/05/19 10:35 Blood - Peripheral Venous Blood Culture - Final NO GROWTH AFTER 5 DAYS INCUBATION 12/05/19 10:35 Blood - Peripheral Venous Blood Culture - Final NO GROWTH AFTER 5 DAYS INCUBATION 12/05/19 12:10 Urine - Urine Maravilla Urine Culture - Final Vr Ec Faecium chest ct- improved left cavitary infiltrate a/p sepsis cavitary pneumonia RUL, left lung pneumonia infected decubiti-local management per surgery abdominal wall cellulitis-resolving history of cdiff on po vancomycin continue meropenem day #17 -improved cavitary pneumonia -complete 21 days- improved plan to continue local care for the decubiti, along with improving nutritional status continue po vancomycin for duration of bs abx then vancomycin taper strict contact isolation for highly resistant organisms will need to be ma intained overall prognosis remains poor
--- NOTE | 2019-12-28 13:42 | PN ---
Progress Note (short form) - Note Progress Note: Vented. Awake in NAD. No acute events overnight. Intake & Output 12/25/19 12/26/19 12/27/19 12/28/19 23:59 23:59 23:59 23:59 Intake Total 3700 3400 2780 1125 Output Total 900 1740 1300 50 Balance 2800 1660 1480 1075 Last Vital Signs Temp Pulse Resp BP Pulse Ox 98.4 F 104 H 22 H 136/54 L 98 12/28/19 05:29 12/28/19 05:29 12/28/19 12:15 12/28/19 05:29 12/28/19 08:15 Active Medications Acetaminophen (Tylenol Oral Solution -) 650 mg PO Q6H PRN PRN Reason: fever Last Admin: 12/28/19 11:41 Dose: 650 mg Documented by: Amino Acids (Prosource No Carb Liquid Pkt) 30 ml GT DAILY@0800 [facility] Last Admin: 12/28/19 11:40 Dose: 30 ml Documented by: Ascorbic Acid (Vitamin C -) 500 mg PO BID [facility] Last Admin: 12/28/19 11:41 Dose: 500 mg Documented by: Banana Based Medical Food (Banatrol Plus Powder Packet) 1 packet GT TID [facility] Last Admin: 12/28/19 05:05 Dose: 1 packet Documented by: Collagenase (Santyl -) 1 applic TP DAILY [facility]; Protocol Last Admin: 12/28/19 11:42 Dose: 1 applic Documented by: Ferrous Sulfate (Feosol) 300 mg GT DAILY [facility] Last Admin: 12/28/19 11:42 Dose: 300 mg Documented by: Meropenem 1 gm/ Dextrose 100 mls @ 200 mls/hr IVPB Q8H-IV [facility] Last Admin: 12/28/19 11:40 Dose: 200 mls/hr Documented by: Lactobacillus Acidophilus (Bacid -) 1 tab GT DAILY [facility] Last Admin: 12/28/19 11:41 Dose: 1 tab Documented by: Multivitamins/Minerals (Certavite-Antioxidant Liquid) 15 ml PO DAILY [facility] Last Admin: 12/28/19 11:41 Dose: 15 ml Documented by: Pantoprazole Sodium (Protonix Iv) 40 mg IVPUSH DAILY [facility] Last Admin: 12/28/19 11:42 Dose: 40 mg Documented by: Triamcinolone Acetonide (Aristocort 0.5% Ointment -) 1 applic TP BID [facility] Last Admin: 12/28/19 11:42 Dose: 1 applic Documented by: Vancomycin HCl (Vancomycin Oral Solution) 125 mg PO Q6HPO [facility] Last Admin: 12/28/19 11:40 Dose: 125 mg Documented by: Gen: vented, awake Heart: RRR Lung: scattered rhonchi Abd: soft, nontender Ext: contracted, no edema Laboratory Results - last 24 hr 12/28/19 12:40 WBC 11.1 H RBC 3.08 L Hgb 9.4 L Hct 28.6 L MCV 92.7 MCH 30.4 MCHC 32.8 RDW 17.9 H Plt Count 646 H MPV 6.9 L Absolute Neuts (auto) 8.6 H Neutrophils % 77.6 Lymphocytes % 13.7 D Monocytes % 5.7 Eosinophils % 2.6 Basophils % 0.4 Nucleated RBC % 0 A/P Pneumonia Infected Decubitus Ulcers h/o C diff colitis Severe Sepsis Lactic Acidosis Chronic Respiratory Failure Cerebral Palsy Parkinsons Anemia Wasted/Malnourished - ABX - monitor urine output, creatinine - local wound care - continue volume assist control - poor candidate for weaning - enteral feeds - DVT/GI prophylaxis Dr Alexandre
[2019-12-29] MEDS: VANCOMYCIN 250 MG/5 ML ORAL SOLUTION PO SCH ×4 (00:20→17:45)
[2019-12-29] MEDS ORDERED: MEROPENEM 1 GM VIAL (RESTRICTED TO ID) IVPB ONE ×3 (00:43→17:27)
[2019-12-29] MEDS ORDERED: DEXTROSE 5%-WATER 100 ML IVPB ONE ×3 (00:43→17:27)
[2019-12-29] MEDS: MEROPENEM 1 GM in DEXTROSE 5%-WATER 100 ML IVPB SCH ×3 (01:17→17:45)
[2019-12-29] MEDS: ACETAMINOPHEN 650 MG/20.3 ML ORAL SOLUTION (CUPS) PO PRN ×3 (04:30→23:45)
[2019-12-29] MEDS: BANATROL PLUS POWDER PACKET GT SCH ×3 (05:02→23:44)
[2019-12-29 08:02] LABS: HEMATOCRIT 29.3 % (35.4-49); HEMOGLOBIN 9.6 GM/dL (11.7-16.9); LYMPH % 8.2 % (8-40); MCH 30.2 pg (25.7-33.7); MCHC 32.9 g/dl (32.0-35.9); MEAN CELL VOLUME 91.8 fl (80-96); MEAN PLT VOLUME 6.9 fl (7.5-11.1); MONO % 5.9 % (3.8-10.2); NEUT % 83.5 % (42.8-82.8); PLATELET COUNT 677 K/MM3 (134-434); RBC 3.19 M/mm3 (4.00-5.60); WHITE BLOOD COUNT 16.3 K/mm3 (4.0-10.0)
[2019-12-29 08:03] LABS: BASO % 0.9 % (0-2.0); EOS % 1.5 % (0-4.5)
[2019-12-29] MEDS ORDERED: PT OWN MED DRAWER 7, Y5N ONE ×3 (09:53→23:41)
--- NOTE | 2019-12-29 10:50 | PN ---
Progress Note, Physician History of Present Illness: pulmonary no change,poorly responsive on vent support ac mode, - Current Medication List Current Medications: Active Medications Acetaminophen (Tylenol Oral Solution -) 650 mg PO Q6H PRN PRN Reason: fever Last Admin: 12/29/19 04:30 Dose: 650 mg Documented by: Amino Acids (Prosource No Carb Liquid Pkt) 30 ml GT DAILY@0800 [facility] Last Admin: 12/28/19 11:40 Dose: 30 ml Documented by: Ascorbic Acid (Vitamin C -) 500 mg PO BID [facility] Last Admin: 12/28/19 22:25 Dose: 500 mg Documented by: Banana Based Medical Food (Banatrol Plus Powder Packet) 1 packet GT TID [facility] Last Admin: 12/29/19 05:02 Dose: 1 packet Documented by: Collagenase (Santyl -) 1 applic TP DAILY [facility]; Protocol Last Admin: 12/28/19 11:42 Dose: 1 applic Documented by: Ferrous Sulfate (Feosol) 300 mg GT DAILY [facility] Last Admin: 12/28/19 11:42 Dose: 300 mg Documented by: Meropenem 1 gm/ Dextrose 100 mls @ 200 mls/hr IVPB Q8H-IV [facility] Last Admin: 12/29/19 01:17 Dose: 200 mls/hr Documented by: Lactobacillus Acidophilus (Bacid -) 1 tab GT DAILY [facility] Last Admin: 12/28/19 11:41 Dose: 1 tab Documented by: Multivitamins/Minerals (Certavite-Antioxidant Liquid) 15 ml PO DAILY [facility] Last Admin: 12/28/19 11:41 Dose: 15 ml Documented by: Pantoprazole Sodium (Protonix Iv) 40 mg IVPUSH DAILY [facility] Last Admin: 12/28/19 11:42 Dose: 40 mg Documented by: Triamcinolone Acetonide (Aristocort 0.5% Ointment -) 1 applic TP BID [facility] Last Admin: 12/28/19 22:25 Dose: 1 applic Documented by: Vancomycin HCl (Vancomycin Oral Solution) 125 mg PO Q6HPO [facility] Last Admin: 12/29/19 05:02 Dose: 125 mg Documented by: - Objective Vital Signs: Vital Signs Temperature 98.5 F 12/29/19 06:00 Pulse Rate 112 H 12/29/19 06:00 Respiratory Rate 25 H 12/29/19 09:02 Blood Pressure 113/55 L 12/29/19 06:00 O2 Sat by Pulse Oximetry (%) 99 12/29/19 09:02 Constitutional: Yes: Cachectic, Other (poorly responsive) Eyes: Yes: WNL HENT: Yes: WNL Neck: Yes: WNL Cardiovascular: Yes: Regular Rate and Rhythm, S1, S2 Respiratory: Yes: Rhonchi (scattered marlyn wheezes and rhonchi), Wheezes Gastrointestinal: Yes: Normal Bowel Sounds, Soft Extremities: Yes: Other (contracted) Edema: No Labs: CBC, BMP 12/29/19 07:24 12/25/19 09:40 Problem List - Problems (1) Lactic acidosis Code(s): E87.2 - ACIDOSIS (2) Pneumonia Code(s): J18.9 - PNEUMONIA, UNSPECIFIED ORGANISM (3) Sepsis Code(s): A41.9 - SEPSIS, UNSPECIFIED ORGANISM (4) Anemia Code(s): D64.9 - ANEMIA, UNSPECIFIED Qualifiers: (5) COPD (chronic obstructive pulmonary disease) Code(s): J44.9 - CHRONIC OBSTRUCTIVE PULMONARY DISEASE, UNSPECIFIED Qualifiers: (6) Cerebral palsy Code(s): G80.9 - CEREBRAL PALSY, UNSPECIFIED Qualifiers: (7) Chronic respiratory failure Code(s): J96.10 - CHRONIC RESPIRATORY FAILURE, UNSP W HYPOXIA OR HYPERCAPNIA Qualifiers: (8) Decubital ulcer Code(s): L89.90 - PRESSURE ULCER OF UNSPECIFIED SITE, UNSPECIFIED STAGE (9) Parkinson disease Code(s): G20 - PARKINSON'S DISEASE (10) Severe malnutrition Code(s): E43 - UNSPECIFIED SEVERE PROTEIN-CALORIE MALNUTRITION Assessment/Plan ASSESSMENT AND PLAN: Pneumonia Infected Decubitus Ulcers h/o C diff colitis Severe Sepsis Chronic Respiratory Failure Cerebral Palsy Parkinsons Anemia - monitor urine output, creatinine - wound care - continue volume assist control - poor candidate for weaning - enteral feeds - DVT/GI prophylaxis - abx as per JUAN HERNANDEZ
--- NOTE | 2019-12-29 10:59 | PN ---
Progress Note, Physician Chief Complaint: Pneumonia Chronic respiratory failure VRE Anemia Cachexia History of Present Illness: NAD [facility] vent Operative Date: 12/10/19 Pre-Operative Diagnosis: Right hip necrotic ulcer, sacral necrotic ulcer Operation: excisional debridement skin, subcutaneous tissue, muscle right hip. Excisional debridement skin, subcutaneous tissue sacrum. Post-Operative Diagnosis: Same as Pre-op Surgeon: Rich Madrid Anesthesia: MAC Estimated Blood Loss (mls): 30 Operative Report Dictated: Yes + diarrhea+ rectal tube CT chest shows improvement in pneumonia in the left lung On Meropenem day , PO Vanco for cdiff + Valacyclovir for zoster post op left hip, sacral and back wound debridement with surgery - Current Medication List Current Medications: Active Medications Acetaminophen (Tylenol Oral Solution -) 650 mg PO Q6H PRN PRN Reason: fever Last Admin: 12/29/19 04:30 Dose: 650 mg Documented by: Amino Acids (Prosource No Carb Liquid Pkt) 30 ml GT DAILY@0800 [facility] Last Admin: 12/28/19 11:40 Dose: 30 ml Documented by: Ascorbic Acid (Vitamin C -) 500 mg PO BID [facility] Last Admin: 12/28/19 22:25 Dose: 500 mg Documented by: Banana Based Medical Food (Banatrol Plus Powder Packet) 1 packet GT TID [facility] Last Admin: 12/29/19 05:02 Dose: 1 packet Documented by: Collagenase (Santyl -) 1 applic TP DAILY [facility]; Protocol Last Admin: 12/28/19 11:42 Dose: 1 applic Documented by: Ferrous Sulfate (Feosol) 300 mg GT DAILY [facility] Last Admin: 12/28/19 11:42 Dose: 300 mg Documented by: Meropenem 1 gm/ Dextrose 100 mls @ 200 mls/hr IVPB Q8H-IV [facility] Last Admin: 12/29/19 01:17 Dose: 200 mls/hr Documented by: Lactobacillus Acidophilus (Bacid -) 1 tab GT DAILY [facility] Last Admin: 12/28/19 11:41 Dose: 1 tab Documented by: Multivitamins/Minerals (Certavite-Antioxidant Liquid) 15 ml PO DAILY [facility] Last Admin: 12/28/19 11:41 Dose: 15 ml Documented by: Pantoprazole Sodium (Protonix Iv) 40 mg IVPUSH DAILY [facility] Last Admin: 12/28/19 11:42 Dose: 40 mg Documented by: Triamcinolone Acetonide (Aristocort 0.5% Ointment -) 1 applic TP BID [facility] Last Admin: 12/28/19 22:25 Dose: 1 applic Documented by: Vancomycin HCl (Vancomycin Oral Solution) 125 mg PO Q6HPO [facility] Last Admin: 12/29/19 05:02 Dose: 125 mg Documented by: - Objective Vital Signs: Vital Signs Temperature 98.5 F 12/29/19 06:00 Pulse Rate 112 H 12/29/19 06:00 Respiratory Rate 25 H 12/29/19 09:02 Blood Pressure 113/55 L 12/29/19 06:00 O2 Sat by Pulse Oximetry (%) 99 12/29/19 09:02 Constitutional: Yes: No Distress, Calm, Cachectic Cardiovascular: Yes: Tachycardia Respiratory: Yes: Regular, Mechanically Ventilated, Rhonchi (diffuse) Gastrointestinal: Yes: Normal Bowel Sounds, Soft Genitourinary: Yes: Maravilla Present Musculoskeletal: Yes: WNL Extremities: Yes: Other (contracted) Edema: Yes (generlized) Peripheral Pulses WNL: Yes Integumentary: Yes: Pressure Ulcer (multiple) Wound/Incision: Yes: Dressing Dry and Intact (multiple pressure ulcer sites) Neurological: Yes: Pre-Existing Deficit Labs: CBC, BMP 12/29/19 07:24 12/25/19 09:40 INR, PTT INR 1.73 (0.83-1.09) H 12/09/19 12:34 Problem List - Problems (1) Pneumonia Assessment/Plan: -Recurrent -IV meropenem day -CT chest shows improvement -Pulmonary and ID consult -[facility] vent -Instructed nursing staff to make sure HOB >45 degrees at all times Problems reviewed: Yes Code(s): J18.9 - PNEUMONIA, UNSPECIFIED ORGANISM (2) Sepsis Assessment/Plan: -resolved Problems reviewed: Yes Code(s): A41.9 - SEPSIS, UNSPECIFIED ORGANISM (3) Anemia Assessment/Plan: -Previously TAM -Received 1 U PRBC this admission -Continue feosol BID -Iron stores improved -Transfuse only if Hg<7.0 to avoid fluid overload -Injectafer once this admission -AC on hold Problems reviewed: Yes Code(s): D64.9 - ANEMIA, UNSPECIFIED Qualifiers: (4) Cerebral palsy Problems reviewed: Yes Code(s): G80.9 - CEREBRAL PALSY, UNSPECIFIED Qualifiers: (5) Chronic respiratory failure Assessment/Plan: -Mech vent -Pulmonary on board -Bronchodilators -Not a candidate for weaning at this time Problems reviewed: Yes Code(s): J96.10 - CHRONIC RESPIRATORY FAILURE, UNSP W HYPOXIA OR HYPERCAPNIA Qualifiers: (6) Functional quadriplegia Problems reviewed: Yes Code(s): R53.2 - FUNCTIONAL QUADRIPLEGIA (7) Decubital ulcer Assessment/Plan: -Seen by Vascular + General surgery -s/p debridement -IV abx -Agressive turning and positioning -Reposition every two hours while in bed -Air mattress as ordered- discussed -Use drawsheets and Trendelenburg when repositioning to reduce friction and shear -Manageincontinence via timely cleansing, use of appropriate incontinence disposables and use of barrier ointment to intact skin- Phytoplex -Ensure adequate hydration/nutrition, supplementation per primary team -Ensure off-loading to all bony areas (heels, ankles, hips and tailbone) with Allevyn/Optifoam- Heel pads -Clean open wounds with normal saline and apply santyl as ordered. -Cultures: Microbiology 12/24/19 12:22 Bone Gram Stain - Final 12/24/19 12:22 Bone Tissue Culture - Final Escherichia Coli Esbl Green Inspector Vr Ec Faecalis Proteus Mirabilus - Esbl Produ 12/24/19 12:22 Bone Anaerobic Culture - Final 12/07/19 12:10 Sputum - Endotrachea Suction/Ventilator Gram Stain - Final 12/07/19 12:10 Sputum - Endotrachea Suction/Ventilator Sputum Culture - Final Proteus Mirabilus - Esbl Produ Pseudomonas Aeruginosa Klebsiella Pneumoniae - Esbl 12/07/19 18:20 Hip - Left Gram Stain - Final 12/07/19 18:20 Hip - Left Wound Culture - Final Pseudomonas Aeruginosa Proteus Mirabilus - Esbl Produ Vr Ec Faecium 12/10/19 20:45 Stool Clostridioides difficile Antigen - Final 12/10/19 20:45 Stool Clostridioides difficile Toxin Assay - Final 12/05/19 10:35 Blood - Peripheral Venous Blood Culture - Final NO GROWTH AFTER 5 DAYS INCUBATION 12/05/19 10:35 Blood - Peripheral Venous Blood Culture - Final NO GROWTH AFTER 5 DAYS INCUBATION 12/05/19 12:10 Urine - Urine Maravilla Urine Culture - Final Vr Ec Faecium Problems reviewed: Yes Code(s): L89.90 - PRESSURE ULCER OF UNSPECIFIED SITE, UNSPECIFIED STAGE (8) Severe malnutrition Assessment/Plan: -Prosource -Multivitamin -Vitamin C Problems reviewed: Yes Code(s): E43 - UNSPECIFIED SEVERE PROTEIN-CALORIE MALNUTRITION (9) Diarrhea Assessment/Plan: -Rectal tube -On PO Vanco Problems reviewed: Yes Code(s): R19.7 - DIARRHEA, UNSPECIFIED Assessment/Plan See problem list Overall poor prognosis
[2019-12-29] MEDS: FERROUS SO4 300 MG/5 ML ORAL SOLN UNIT DOSE CUPS GT SCH (11:25)
[2019-12-29] MEDS: PANTOPRAZOLE SODIUM 40 MG VIAL IVPUSH SCH (11:25)
[2019-12-29] MEDS: LACTOBACILLUS ACIDOPHILUS 1 TABLET GT SCH (11:25)
[2019-12-29] MEDS: MULTIVIT-MINERALS ORAL LIQUID PO SCH (11:25)
[2019-12-29] MEDS: COLLAGENASE CLOSTRIDIUM HIST. 30 GRAMS TUBE TP SCH (11:26)
[2019-12-29] MEDS: ASCORBIC ACID 500 MG TABLET (FP) PO SCH ×2 (11:26→23:44)
[2019-12-29] MEDS: AMINO ACIDS/PROTEIN HYDROLYS 30 ML LIQUID.PKT GT SCH (11:26)
[2019-12-29] MEDS: TRIAMCINOLONE ACET 0.5% OINT 15 GM TUBE TP SCH ×2 (11:26→23:44)
--- NOTE | 2019-12-29 15:56 | PN ---
Progress Note (short form) - Note Progress Note: resting comfortably trach to vent wounds examined today Vital Signs Period Temp Pulse Resp BP Sys/Gomez Pulse Ox Last 24 Hr 97.4 F-99.5 F 64-112 18-25 103-115/50-69 98-100 trach to vent cor-rrr lungs decreased bs at bases abd soft, +gt +JT ext bilateral hip ulcers clean, back ulcers some slough +fungal rash CBC, BMP 12/29/19 07:24 12/25/19 09:40 Microbiology 12/24/19 12:22 Bone Gram Stain - Final 12/24/19 12:22 Bone Tissue Culture - Final Escherichia Coli Esbl Waste Elimination Vr Ec Faecalis Proteus Mirabilus - Esbl Produ 12/24/19 12:22 Bone Anaerobic Culture - Final 12/07/19 12:10 Sputum - Endotrachea Suction/Ventilator Gram Stain - Final 12/07/19 12:10 Sputum - Endotrachea Suction/Ventilator Sputum Culture - Final Proteus Mirabilus - Esbl Produ Pseudomonas Aeruginosa Klebsiella Pneumoniae - Esbl 12/07/19 18:20 Hip - Left Gram Stain - Final 12/07/19 18:20 Hip - Left Wound Culture - Final Pseudomonas Aeruginosa Proteus Mirabilus - Esbl Produ Vr Ec Faecium 12/10/19 20:45 Stool Clostridioides difficile Antigen - Final 12/10/19 20:45 Stool Clostridioides difficile Toxin Assay - Final 12/05/19 10:35 Blood - Peripheral Venous Blood Culture - Final NO GROWTH AFTER 5 DAYS INCUBATION 12/05/19 10:35 Blood - Peripheral Venous Blood Culture - Final NO GROWTH AFTER 5 DAYS INCUBATION 12/05/19 12:10 Urine - Urine Maravilla Urine Culture - Final Vr Ec Faecium 12/24/19 12:22 Bone Gram Stain - Final 12/24/19 12:22 Bone Tissue Culture - Final Escherichia Coli Esbl Waste Elimination Vr Ec Faecalis Proteus Mirabilus - Esbl Produ 12/24/19 12:22 Bone Anaerobic Culture - Final 12/07/19 12:10 Sputum - Endotrachea Suction/Ventilator Gram Stain - Final 12/07/19 12:10 Sputum - Endotrachea Suction/Ventilator Sputum Culture - Final Proteus Mirabilus - Esbl Produ Pseudomonas Aeruginosa Klebsiella Pneumoniae - Esbl 12/07/19 18:20 Hip - Left Gram Stain - Final 12/07/19 18:20 Hip - Left Wound Culture - Final Pseudomonas Aeruginosa Proteus Mirabilus - Esbl Produ Vr Ec Faecium 12/10/19 20:45 Stool Clostridioides difficile Antigen - Final 12/10/19 20:45 Stool Clostridioides difficile Toxin Assay - Final 12/05/19 10:35 Blood - Peripheral Venous Blood Culture - Final NO GROWTH AFTER 5 DAYS INCUBATION 12/05/19 10:35 Blood - Peripheral Venous Blood Culture - Final NO GROWTH AFTER 5 DAYS INCUBATION 12/05/19 12:10 Urine - Urine Maravilla Urine Culture - Final Vr Ec Faecium a/p sepsis cavitary pneumonia RUL, left lung pneumonia infected decubiti-local management per surgery- abdominal wall cellulitis-resolving history of cdiff on po vancomycin continue meropenem day #18 -improved cavitary pneumonia -complete 21 days- improved plan to continue local care for the decubiti, along with goal of improving nutritional status -albumin is .8 continue po vancomycin for duration of bs abx then vancomycin taper strict contact isolation for highly resistant organisms will need to be maintained add po diflucan overall prognosis remains poor
[2019-12-30] MEDS: VANCOMYCIN 250 MG/5 ML ORAL SOLUTION PO SCH ×4 (00:01→18:50)
[2019-12-30] MEDS ORDERED: SODIUM CHLORIDE 250 ML IV STA ×2 (00:20→02:00)
[2019-12-30] MEDS ORDERED: MEROPENEM 1 GM VIAL (RESTRICTED TO ID) IVPB ONE ×3 (02:18→14:28)
[2019-12-30] MEDS ORDERED: DEXTROSE 5%-WATER 100 ML IVPB ONE ×3 (02:18→14:28)
[2019-12-30] MEDS: MEROPENEM 1 GM in DEXTROSE 5%-WATER 100 ML IVPB SCH ×3 (02:39→17:53)
[2019-12-30] MEDS ORDERED: PT OWN MED DRAWER 7, Y5N ONE (05:07)
[2019-12-30] MEDS: BANATROL PLUS POWDER PACKET GT SCH ×2 (05:40→14:15)
[2019-12-30] MEDS ORDERED: FLUCONAZOLE 100 MG TABLET (UD) PO SCH (10:00)
--- NOTE | 2019-12-30 10:08 | PN ---
Progress Note, Physician History of Present Illness: pulmonary no change, poorly responsive on vent support ac mode,-resp distress - Current Medication List Current Medications: Active Medications Acetaminophen (Tylenol Oral Solution -) 650 mg PO Q6H PRN PRN Reason: fever Last Admin: 12/29/19 23:45 Dose: 650 mg Documented by: Amino Acids (Prosource No Carb Liquid Pkt) 30 ml GT DAILY@0800 [facility] Last Admin: 12/29/19 11:26 Dose: 30 ml Documented by: Ascorbic Acid (Vitamin C -) 500 mg PO BID [facility] Last Admin: 12/29/19 23:44 Dose: 500 mg Documented by: Banana Based Medical Food (Banatrol Plus Powder Packet) 1 packet GT TID [facility] Last Admin: 12/30/19 05:40 Dose: 1 packet Documented by: Collagenase (Santyl -) 1 applic TP DAILY [facility]; Protocol Last Admin: 12/29/19 11:26 Dose: 1 applic Documented by: Ferrous Sulfate (Feosol) 300 mg GT DAILY [facility] Last Admin: 12/29/19 11:25 Dose: 300 mg Documented by: Fluconazole (Diflucan 40mg/Ml Suspension -) 100 mg PO DAILY [facility] Meropenem 1 gm/ Dextrose 100 mls @ 200 mls/hr IVPB Q8H-IV [facility] Last Admin: 12/30/19 02:39 Dose: 200 mls/hr Documented by: Lactobacillus Acidophilus (Bacid -) 1 tab GT DAILY [facility] Last Admin: 12/29/19 11:25 Dose: 1 tab Documented by: Multivitamins/Minerals (Certavite-Antioxidant Liquid) 15 ml PO DAILY [facility] Last Admin: 12/29/19 11:25 Dose: 15 ml Documented by: Pantoprazole Sodium (Protonix Iv) 40 mg IVPUSH DAILY [facility] Last Admin: 12/29/19 11:25 Dose: 40 mg Documented by: Triamcinolone Acetonide (Aristocort 0.5% Ointment -) 1 applic TP BID [facility] Last Admin: 12/29/19 23:44 Dose: 1 applic Documented by: Vancomycin HCl (Vancomycin Oral Solution) 125 mg PO Q6HPO [facility] Last Admin: 12/30/19 05:40 Dose: 125 mg Documented by: - Objective Vital Signs: Vital Signs Temperature 97.9 F 12/30/19 06:00 Pulse Rate 87 12/30/19 06:00 Respiratory Rate 20 09/16/20 08:00 Blood Pressure 94/47 L 12/30/19 06:00 O2 Sat by Pulse Oximetry (%) 98 12/30/19 08:00 Constitutional: Yes: Cachectic, Other (poorly responsive) Eyes: Yes: WNL HENT: Yes: WNL Neck: Yes: Supple (trach) Cardiovascular: Yes: Regular Rate and Rhythm, S1, S2 Respiratory: Yes: Rhonchi (scattered rhonchi) Gastrointestinal: Yes: Normal Bowel Sounds, Soft Extremities: Yes: Other (contracted) Edema: No Labs: CBC, BMP INR, PTT INR 1.73 (0.83-1.09) H 12/09/19 12:34 Problem List - Problems (1) Lactic acidosis Code(s): E87.2 - ACIDOSIS (2) Pneumonia Code(s): J18.9 - PNEUMONIA, UNSPECIFIED ORGANISM (3) Sepsis Code(s): A41.9 - SEPSIS, UNSPECIFIED ORGANISM (4) Anemia Code(s): D64.9 - ANEMIA, UNSPECIFIED Qualifiers: (5) COPD (chronic obstructive pulmonary disease) Code(s): J44.9 - CHRONIC OBSTRUCTIVE PULMONARY DISEASE, UNSPECIFIED Qualifiers: (6) Cerebral palsy Code(s): G80.9 - CEREBRAL PALSY, UNSPECIFIED Qualifiers: (7) Chronic respiratory failure Code(s): J96.10 - CHRONIC RESPIRATORY FAILURE, UNSP W HYPOXIA OR HYPERCAPNIA Qualifiers: (8) Decubital ulcer Code(s): L89.90 - PRESSURE ULCER OF UNSPECIFIED SITE, UNSPECIFIED STAGE (9) Parkinson disease Code(s): G20 - PARKINSON'S DISEASE (10) Severe malnutrition Code(s): E43 - UNSPECIFIED SEVERE PROTEIN-CALORIE MALNUTRITION Assessment/Plan ASSESSMENT AND PLAN: Pneumonia Infected Decubitus Ulcers h/o C diff colitis Severe Sepsis Chronic Respiratory Failure Cerebral Palsy Parkinsons Anemia - monitor urine output, creatinine - wound care - continue volume assist control - poor candidate for weaning - enteral feeds - DVT/GI prophylaxis - abx as per ID - DR HERNANDEZ
--- NOTE | 2019-12-30 10:44 | PN ---
Progress Note, Physician Chief Complaint: Pneumonia Chronic respiratory failure VRE Anemia Cachexia History of Present Illness: NAD [facility] vent Operative Date: 12/10/19 Pre-Operative Diagnosis: Right hip necrotic ulcer, sacral necrotic ulcer Operation: excisional debridement skin, subcutaneous tissue, muscle right hip. Excisional debridement skin, subcutaneous tissue sacrum. Post-Operative Diagnosis: Same as Pre-op Surgeon: Rich Madrid Anesthesia: MAC Estimated Blood Loss (mls): 30 Operative Report Dictated: Yes + diarrhea+ rectal tube CT chest shows improvement in pneumonia in the left lung On Meropenem day , PO Vanco for cdiff + Valacyclovir for zoster post op left hip, sacral and back wound debridement with surgery - Current Medication List Current Medications: Active Medications Acetaminophen (Tylenol Oral Solution -) 650 mg PO Q6H PRN PRN Reason: fever Last Admin: 12/29/19 23:45 Dose: 650 mg Documented by: Amino Acids (Prosource No Carb Liquid Pkt) 30 ml GT DAILY@0800 [facility] Last Admin: 12/29/19 11:26 Dose: 30 ml Documented by: Ascorbic Acid (Vitamin C -) 500 mg PO BID [facility] Last Admin: 12/29/19 23:44 Dose: 500 mg Documented by: Banana Based Medical Food (Banatrol Plus Powder Packet) 1 packet GT TID [facility] Last Admin: 12/30/19 05:40 Dose: 1 packet Documented by: Collagenase (Santyl -) 1 applic TP DAILY [facility]; Protocol Last Admin: 12/29/19 11:26 Dose: 1 applic Documented by: Ferrous Sulfate (Feosol) 300 mg GT DAILY [facility] Last Admin: 12/29/19 11:25 Dose: 300 mg Documented by: Fluconazole (Diflucan 40mg/Ml Suspension -) 100 mg PO DAILY [facility] Meropenem 1 gm/ Dextrose 100 mls @ 200 mls/hr IVPB Q8H-IV [facility] Last Admin: 12/30/19 02:39 Dose: 200 mls/hr Documented by: Lactobacillus Acidophilus (Bacid -) 1 tab GT DAILY [facility] Last Admin: 12/29/19 11:25 Dose: 1 tab Documented by: Multivitamins/Minerals (Certavite-Antioxidant Liquid) 15 ml PO DAILY [facility] Last Admin: 12/29/19 11:25 Dose: 15 ml Documented by: Pantoprazole Sodium (Protonix Iv) 40 mg IVPUSH DAILY [facility] Last Admin: 12/29/19 11:25 Dose: 40 mg Documented by: Triamcinolone Acetonide (Aristocort 0.5% Ointment -) 1 applic TP BID [facility] Last Admin: 12/29/19 23:44 Dose: 1 applic Documented by: Vancomycin HCl (Vancomycin Oral Solution) 125 mg PO Q6HPO [facility] Last Admin: 12/30/19 05:40 Dose: 125 mg Documented by: - Objective Vital Signs: Vital Signs Temperature 97.9 F 12/30/19 06:00 Pulse Rate 87 12/30/19 06:00 Respiratory Rate 20 12/30/19 08:00 Blood Pressure 94/47 L 12/30/19 06:00 O2 Sat by Pulse Oximetry (%) 98 12/30/19 08:00 Constitutional: Yes: No Distress, Calm, Cachectic Cardiovascular: Yes: Regular Rate and Rhythm Respiratory: Yes: Regular, Mechanically Ventilated, Rhonchi (diffuse) Gastrointestinal: Yes: Normal Bowel Sounds, Soft Genitourinary: Yes: Maravilla Present Musculoskeletal: Yes: Muscle Weakness Extremities: Yes: Other (contracted) Edema: Yes (generalized) Peripheral Pulses WNL: Yes Neurological: Yes: Pre-Existing Deficit Labs: CBC, BMP 12/29/19 07:24 12/25/19 09:40 INR, PTT INR 1.73 (0.83-1.09) H 12/09/19 12:34 Problem List - Problems (1) Pneumonia Assessment/Plan: -Recurrent -Cavitary pne -IV meropenem day -CT chest shows improvement -Pulmonary and ID consult -[facility] vent -Instructed nursing staff to make sure HOB >45 degrees at all times Problems reviewed: Yes Code(s): J18.9 - PNEUMONIA, UNSPECIFIED ORGANISM (2) Sepsis Assessment/Plan: -Multifactorial -Pne + multple decubitus ulcers Problems reviewed: Yes Code(s): A41.9 - SEPSIS, UNSPECIFIED ORGANISM (3) Anemia Assessment/Plan: -Previously TAM -Received 2 U PRBC this admission -Continue feosol BID -Iron stores improved -Transfuse only if Hg<7.0 to avoid fluid overload -Injectafer once this admission -AC on hold Problems reviewed: Yes Code(s): D64.9 - ANEMIA, UNSPECIFIED Qualifiers: (4) Cerebral palsy Problems reviewed: Yes Code(s): G80.9 - CEREBRAL PALSY, UNSPECIFIED Qualifiers: (5) Chronic respiratory failure Assessment[facility]Plan[facility] -Pulmonary on board -Bronchodilators -Not a candidate for weaning at this time Problems reviewed: Yes Code(s): J96.10 - CHRONIC RESPIRATORY FAILURE, UNSP W HYPOXIA OR HYPERCAPNIA Qualifiers: (6) Functional quadriplegia Problems reviewed: Yes Code(s): R53.2 - FUNCTIONAL QUADRIPLEGIA (7) Decubital ulcer Assessment/Plan: -Seen by Vascular + General surgery -s/p debridement -IV abx -Agressive turning and positioning -Reposition every two hours while in bed -Air mattress as ordered- discussed -Use drawsheets and Trendelenburg when repositioning to reduce friction and shear -Manageincontinence via timely cleansing, use of appropriate incontinence disposables and use of barrier ointment to intact skin- Phytoplex -Ensure adequate hydration/nutrition, supplementation per primary team -Ensure off-loading to all bony areas (heels, ankles, hips and tailbone) with Allevyn/Optifoam- Heel pads -Clean open wounds with normal saline and apply santyl as ordered. -Cultures: Microbiology 12/24/19 12:22 Bone Gram Stain - Final 12/24/19 12:22 Bone Tissue Culture - Final Escherichia Coli Esbl Loading Manager Vr Ec Faecalis Proteus Mirabilus - Esbl Produ 12/24/19 12:22 Bone Anaerobic Culture - Final 12/07/19 12:10 Sputum - Endotrachea Suction/Ventilator Gram Stain - Final 12/07/19 12:10 Sputum - Endotrachea Suction/Ventilator Sputum Culture - Final Proteus Mirabilus - Esbl Produ Pseudomonas Aeruginosa Klebsiella Pneumoniae - Esbl 12/07/19 18:20 Hip - Left Gram Stain - Final 12/07/19 18:20 Hip - Left Wound Culture - Final Pseudomonas Aeruginosa Proteus Mirabilus - Esbl Produ Vr Ec Faecium 12/10/19 20:45 Stool Clostridioides difficile Antigen - Final 12/10/19 20:45 Stool Clostridioides difficile Toxin Assay - Final 12/05/19 10:35 Blood - Peripheral Venous Blood Culture - Final NO GROWTH AFTER 5 DAYS INCUBATION 12/05/19 10:35 Blood - Peripheral Venous Blood Culture - Final NO GROWTH AFTER 5 DAYS INCUBATION 12/05/19 12:10 Urine - Urine Maravilla Urine Culture - Final Vr Ec Faecium Problems reviewed: Yes Code(s): L89.90 - PRESSURE ULCER OF UNSPECIFIED SITE, UNSPECIFIED STAGE (8) Severe malnutrition Assessment/Plan: -Prosource -Multivitamin -Vitamin C -Albumin IV 4 doses Problems reviewed: Yes Code(s): E43 - UNSPECIFIED SEVERE PROTEIN-CALORIE MALNUTRITION (9) Diarrhea Assessment/Plan: -Rectal tube -On PO Vanco Problems reviewed: Yes Code(s): R19.7 - DIARRHEA, UNSPECIFIED Assessment/Plan See problem list Overall poor prognosis
[2019-12-30] MEDS: AMINO ACIDS/PROTEIN HYDROLYS 30 ML LIQUID.PKT GT SCH (11:36)
[2019-12-30] MEDS: ASCORBIC ACID 500 MG TABLET (FP) PO SCH (11:36)
[2019-12-30] MEDS: PANTOPRAZOLE SODIUM 40 MG VIAL IVPUSH SCH (11:36)
[2019-12-30] MEDS: LACTOBACILLUS ACIDOPHILUS 1 TABLET GT SCH (11:37)
[2019-12-30] MEDS: MULTIVIT-MINERALS ORAL LIQUID PO SCH (11:37)
[2019-12-30] MEDS: FERROUS SO4 300 MG/5 ML ORAL SOLN UNIT DOSE CUPS GT SCH (11:41)
[2019-12-30] MEDS: NYSTATIN 100000 UNIT/GM TOPICAL OINTMENT 15 GM TUBE TP SCH (11:56)
[2019-12-30] MEDS: TRIAMCINOLONE ACET 0.5% OINT 15 GM TUBE TP SCH (11:57)
[2019-12-30] MEDS: NYSTATIN POWDER 100,000 UNITS/GM - 15 GM TOPICAL POWDER TP SCH (11:57)
[2019-12-30] MEDS: COLLAGENASE CLOSTRIDIUM HIST. 30 GRAMS TUBE TP SCH (11:57)
[2019-12-30 13:23] LABS: BASO % 0.8 % (0-2.0); EOS % 2.5 % (0-4.5); HEMATOCRIT 26.7 % (35.4-49); HEMOGLOBIN 8.9 GM/dL (11.7-16.9); LYMPH % 10.6 % (8-40); MCH 30.9 pg (25.7-33.7); MCHC 33.3 g/dl (32.0-35.9); MEAN CELL VOLUME 92.8 fl (80-96); MONO % 5.9 % (3.8-10.2); NEUT % 80.2 % (42.8-82.8); PLATELET COUNT 680 K/MM3 (134-434); RBC 2.87 M/mm3 (4.00-5.60); RDW 18.3 % (11.9-15.9); WHITE BLOOD COUNT 14.7 K/mm3 (4.0-10.0)
[2019-12-30] MEDS: ALBUMIN HUMAN 25% 12.5 GM/50 ML VIAL IVPB SCH ×4 (13:32→17:01)
[2019-12-30 14:04] LABS: ALBUMIN 0.8 g/dl (3.4-5.0); BILIRUBIN,TOTAL 0.6 mg/dL (0.2-1); BLOOD UREA NITROGEN 21.8 mg/dL (7-18); CALCIUM 8.4 mg/dL (8.5-10.1); CREATININE 0.2 mg/dL (0.55-1.3); POTASSIUM 4.7 mmol/L (3.5-5.1); TOT PROT 5.7 g/dl (6.4-8.2)
[2019-12-30] MEDS: FLUCONAZOLE 40 MG/ML SUSPENSION PO SCH (14:15)
--- NOTE | 2019-12-30 17:54 | PATH ---
Surgical Pathology Report Patient Name: GENNARO CARLIN Med. Rec. #: [id number] /Age/Gender: 1950 (Age: 69) / M Account: [id number] Location: [address] [place] [address]/[facility] Taken: 12/24/2019 Received: 12/24/2019 Reported: 12/30/2019 Physicians: MD Delbert Chase M.D. Specimen(s) Received DEBRIDED TISSUE Clinical History C. Differential, severe sepsis Final Diagnosis DEBRIDED TISSUE, EXCISION: SKIN, FIBROADIPOSE TISSUE, AND DENSE FIBROCONNECTIVE TISSUE WITH MARKED ACUTE AND CHRONIC INFLAMMATION, HEMORRHAGE, ULCERATION, NECROSIS, AND REACTIVE CHANGES. Electronically Signed Faith Rubio M.D. Gross Description Received in formalin labeled "debrided tissue," is an 8.0 x 6.0 x 2.5 cm aggregate of [place] green, necrotic portions of skin and soft tissue. A medical claims representative portion is submitted in one cassette. 12/25/2019 [facility]12/25/2019
[2019-12-31] MEDS: TRIAMCINOLONE ACET 0.5% OINT 15 GM TUBE TP SCH ×3 (00:07→23:28)
[2019-12-31] MEDS: NYSTATIN POWDER 100,000 UNITS/GM - 15 GM TOPICAL POWDER TP SCH ×3 (00:07→23:28)
[2019-12-31] MEDS: NYSTATIN 100000 UNIT/GM TOPICAL OINTMENT 15 GM TUBE TP SCH ×3 (00:07→23:28)
[2019-12-31] MEDS: BANATROL PLUS POWDER PACKET GT SCH ×4 (00:07→23:28)
[2019-12-31] MEDS: ASCORBIC ACID 500 MG TABLET (FP) PO SCH ×3 (00:09→23:28)
[2019-12-31] MEDS: VANCOMYCIN 250 MG/5 ML ORAL SOLUTION PO SCH ×5 (00:10→23:29)
[2019-12-31] MEDS ORDERED: MEROPENEM 1 GM VIAL (RESTRICTED TO ID) IVPB ONE ×3 (01:18→16:48)
[2019-12-31] MEDS ORDERED: DEXTROSE 5%-WATER 100 ML IVPB ONE ×3 (01:19→16:48)
[2019-12-31] MEDS: MEROPENEM 1 GM in DEXTROSE 5%-WATER 100 ML IVPB SCH ×3 (01:32→17:28)
[2019-12-31] MEDS: AMINO ACIDS/PROTEIN HYDROLYS 30 ML LIQUID.PKT GT SCH (08:39)
[2019-12-31] MEDS: FERROUS SO4 300 MG/5 ML ORAL SOLN UNIT DOSE CUPS GT SCH (09:45)
[2019-12-31] MEDS: PANTOPRAZOLE SODIUM 40 MG VIAL IVPUSH SCH (09:45)
[2019-12-31] MEDS: LACTOBACILLUS ACIDOPHILUS 1 TABLET GT SCH (09:46)
[2019-12-31] MEDS: FLUCONAZOLE 40 MG/ML SUSPENSION PO SCH (09:46)
[2019-12-31] MEDS: MULTIVIT-MINERALS ORAL LIQUID PO SCH (09:46)
[2019-12-31 10:28] LABS: BASO % 0.8 % (0-2.0); EOS % 2.7 % (0-4.5); HEMATOCRIT 27.9 % (35.4-49); HEMOGLOBIN 9.1 GM/dL (11.7-16.9); MCH 30.2 pg (25.7-33.7); MCHC 32.7 g/dl (32.0-35.9); MEAN CELL VOLUME 92.5 fl (80-96); MEAN PLT VOLUME 6.8 fl (7.5-11.1); NEUT % 84.5 % (42.8-82.8); PLATELET COUNT 712 K/MM3 (134-434); RBC 3.02 M/mm3 (4.00-5.60); RDW 17.6 % (11.9-15.9); WHITE BLOOD COUNT 14.5 K/mm3 (4.0-10.0)
--- NOTE | 2019-12-31 10:34 | PN ---
Progress Note, Physician Chief Complaint: Pneumonia Chronic respiratory failure VRE Anemia Cachexia History of Present Illness: NAD mech vent Operative Date: 12/10/19 Pre-Operative Diagnosis: Right hip necrotic ulcer, sacral necrotic ulcer Operation: excisional debridement skin, subcutaneous tissue, muscle right hip. Excisional debridement skin, subcutaneous tissue sacrum. Post-Operative Diagnosis: Same as Pre-op Surgeon: Rich Madrid Anesthesia: MAC Estimated Blood Loss (mls): 30 Operative Report Dictated: Yes + diarrhea+ rectal tube CT chest shows improvement in pneumonia in the left lung On Meropenem day , PO Vanco for cdiff + Completed Valacyclovir for zoster post op left hip, sacral and back wound debridement with surgery - Current Medication List Current Medications: Active Medications Acetaminophen (Tylenol Oral Solution -) 650 mg PO Q6H PRN PRN Reason: fever Last Admin: 12/29/19 23:45 Dose: 650 mg Documented by: Amino Acids (Prosource No Carb Liquid Pkt) 30 ml GT DAILY@0800 [facility] Last Admin: 12/31/19 08:39 Dose: 30 ml Documented by: Ascorbic Acid (Vitamin C -) 500 mg PO BID [facility] Last Admin: 12/31/19 09:47 Dose: 500 mg Documented by: Banana Based Medical Food (Banatrol Plus Powder Packet) 1 packet GT TID [facility] Last Admin: 12/31/19 05:20 Dose: 1 packet Documented by: Collagenase (Santyl -) 1 applic TP DAILY [facility]; Protocol Last Admin: 12/30/19 11:57 Dose: 1 applic Documented by: Ferrous Sulfate (Feosol) 300 mg GT DAILY [facility] Last Admin: 12/31/19 09:45 Dose: 300 mg Documented by: Fluconazole (Diflucan 40mg/Ml Suspension -) 100 mg PO DAILY [facility] Last Admin: 12/31/19 09:46 Dose: 100 mg Documented by: Meropenem 1 gm/ Dextrose 100 mls @ 200 mls/hr IVPB Q8H-IV [facility] Last Admin: 12/31/19 09:59 Dose: 200 mls/hr Documented by: Lactobacillus Acidophilus (Bacid -) 1 tab GT DAILY [facility] Last Admin: 12/31/19 09:46 Dose: 1 tab Documented by: Multivitamins/Minerals (Certavite-Antioxidant Liquid) 15 ml PO DAILY [facility] Last Admin: 12/31/19 09:46 Dose: 15 ml Documented by: Nystatin (Mycostatin Ointment -) 1 applic TP BID [facility] Last Admin: 12/31/19 10:00 Dose: 1 applic Documented by: Nystatin (Nystop Powder -) 1 applic TP BID [facility] Last Admin: 12/31/19 10:00 Dose: 1 applic Documented by: Pantoprazole Sodium (Protonix Iv) 40 mg IVPUSH DAILY [facility] Last Admin: 12/31/19 09:45 Dose: 40 mg Documented by: Triamcinolone Acetonide (Aristocort 0.5% Ointment -) 1 applic TP BID [facility] Last Admin: 12/31/19 10:00 Dose: 1 applic Documented by: Vancomycin HCl (Vancomycin Oral Solution) 125 mg PO Q6HPO [facility] Last Admin: 12/31/19 05:20 Dose: 125 mg Documented by: - Objective Vital Signs: Vital Signs Temperature 98.7 F 12/31/19 08:59 Pulse Rate 94 H 12/31/19 08:59 Respiratory Rate 18 12/31/19 08:59 Blood Pressure 109/55 L 12/31/19 08:59 O2 Sat by Pulse Oximetry (%) 95 12/31/19 08:59 Constitutional: Yes: No Distress, Calm, Cachectic Cardiovascular: Yes: Regular Rate and Rhythm Respiratory: Yes: Regular, Mechanically Ventilated, Rhonchi (diffuse) Gastrointestinal: Yes: Normal Bowel Sounds, Soft Genitourinary: Yes: Marav[place] Present Musculoskeletal: Yes: Muscle Weakness Extremities: Yes: Other (contracted) Edema: Yes (generalized) Peripheral Pulses WNL: Yes Integumentary: Yes: Pressure Ulcer Wound/Incision: Yes: Dressing Dry and Intact Neurological: Yes: Pre-Existing Deficit Labs: INR, PTT INR 1.73 (0.83-1.09) H 12/09/19 12:34 Problem List - Problems (1) Pneumonia Assessment/Plan: -Recurrent -Cavitary pne -IV meropenem day -CT chest shows improvement -Pulmonary and ID consult -[facility] vent -Instructed nursing staff to make sure HOB >45 degrees at all times Problems reviewed: Yes Code(s): J18.9 - PNEUMONIA, UNSPECIFIED ORGANISM (2) Sepsis Assessment/Plan: -Multifactorial -Pne + multple decubitus ulcers Problems reviewed: Yes Code(s): A41.9 - SEPSIS, UNSPECIFIED ORGANISM (3) Anemia Assessment/Plan: -Previously TAM -Received 2 U PRBC this admission -Continue feosol BID -Iron stores improved -Transfuse only if Hg<7.0 to avoid fluid overload -Injectafer once this admission -AC on hold Problems reviewed: Yes Code(s): D64.9 - ANEMIA, UNSPECIFIED Qualifiers: (4) Cerebral palsy Problems reviewed: Yes Code(s): G80.9 - CEREBRAL PALSY, UNSPECIFIED Qualifiers: (5) Chronic respiratory failure Assessment/Plan: -Mech vent -Pulmonary on board -Bronchodilators -Not a candidate for weaning at this time Problems reviewed: Yes Code(s): J96.10 - CHRONIC RESPIRATORY FAILURE, UNSP W HYPOXIA OR HYPERCAPNIA Qualifiers: (6) Functional quadriplegia Problems reviewed: Yes Code(s): R53.2 - FUNCTIONAL QUADRIPLEGIA (7) Decubital ulcer Assessment/Plan: -Seen by Vascular + General surgery -s/p debridement -IV abx -Agressive turning and positioning -Reposition every two hours while in bed -Air mattress as ordered- discussed -Use drawsheets and Trendelenburg when repositioning to reduce friction and shear -Manageincontinence via timely cleansing, use of appropriate incontinence dispo sables and use of barrier ointment to intact skin- Phytoplex -Ensure adequate hydration/nutrition, supplementation per primary team -Ensure off-loading to all bony areas (heels, ankles, hips and tailbone) with Allevyn/Optifoam- Heel pads -Clean open wounds with normal saline and apply santyl as ordered. -Cultures: Microbiology 12/24/19 12:22 Bone Gram Stain - Final 12/24/19 12:22 Bone Tissue Culture - Final Escherichia Coli Esbl [employer] Vr Ec Faecalis Proteus Mirabilus - Esbl Produ 12/24/19 12:22 Bone Anaerobic Culture - Final 12/07/19 12:10 Sputum - Endotrachea Suction/Ventilator Gram Stain - Final 12/07/19 12:10 Sputum - Endotrachea Suction/Ventilator Sputum Culture - Final Proteus Mirabilus - Esbl Produ Pseudomonas Aeruginosa Klebsiella Pneumoniae - Esbl 12/07/19 18:20 Hip - Left Gram Stain - Final 12/07/19 18:20 Hip - Left Wound Culture - Final Pseudomonas Aeruginosa Proteus Mirabilus - Esbl Produ Vr Ec Faecium 12/10/19 20:45 Stool Clostridioides difficile Antigen - Final 12/10/19 20:45 Stool Clostridioides difficile Toxin Assay - Final 12/05/19 10:35 Blood - Peripheral Venous Blood Culture - Final NO GROWTH AFTER 5 DAYS INCUBATION 12/05/19 10:35 Blood - Peripheral Venous Blood Culture - Final NO GROWTH AFTER 5 DAYS INCUBATION 12/05/19 12:10 Urine - Urine Maravilla Urine Culture - Final Vr Ec Faecium Problems reviewed: Yes Code(s): L89.90 - PRESSURE ULCER OF UNSPECIFIED SITE, UNSPECIFIED STAGE (8) Severe malnutrition Assessment/Plan: -Prosource -Multivitamin -Vitamin C -Albumin IV 4 doses Problems reviewed: Yes Code(s): E43 - UNSPECIFIED SEVERE PROTEIN-CALORIE MALNUTRITION (9) Diarrhea Assessment/Plan: -Rectal tube -On PO Vanco Problems reviewed: Yes Code(s): R19.7 - DIARRHEA, UNSPECIFIED Assessment/Plan See problem list Overall poor prognosis
[2019-12-31 11:18] LABS: ALBUMIN 1.4 g/dl (3.4-5.0); BILIRUBIN,TOTAL 0.4 mg/dL (0.2-1); BLOOD UREA NITROGEN 19.2 mg/dL (7-18); CALCIUM 9.1 mg/dL (8.5-10.1); CREATININE 0.2 mg/dL (0.55-1.3); POTASSIUM 4.7 mmol/L (3.5-5.1); TOT PROT 6.2 g/dl (6.4-8.2)
--- NOTE | 2019-12-31 13:06 | PN ---
Progress Note (short form) - Note Progress Note: Vented. AC Mode, 40% FiO2. Awake in NAD. No acute events overnight. Intake & Output 12/28/19 12/29/19 12/30/19 12/31/19 23:59 23:59 23:59 23:59 Intake Total 2325 2350 1050 625 Output Total 370 1300 750 75 Balance 1955 1050 300 550 Last Vital Signs Temp Pulse Resp BP Pulse Ox 98.7 F 94 H 24 H 109/55 L 99 12/31/19 08:59 12/31/19 08:59 12/31/19 12:20 12/31/19 08:59 12/31/19 12:20 Active Medications Acetaminophen (Tylenol Oral Solution -) 650 mg PO Q6H PRN PRN Reason: fever Last Admin: 12/29/19 23:45 Dose: 650 mg Documented by: Amino Acids (Prosource No Carb Liquid Pkt) 30 ml GT DAILY@0800 [facility] Last Admin: 12/31/19 08:39 Dose: 30 ml Documented by: Ascorbic Acid (Vitamin C -) 500 mg PO BID [facility] Last Admin: 12/31/19 09:47 Dose: 500 mg Documented by: Banana Based Medical Food (Banatrol Plus Powder Packet) 1 packet GT TID [facility] Last Admin: 12/31/19 05:20 Dose: 1 packet Documented by: Collagenase (Santyl -) 1 applic TP DAILY [facility]; Protocol Last Admin: 12/30/19 11:57 Dose: 1 applic Documented by: Ferrous Sulfate (Feosol) 300 mg GT DAILY [facility] Last Admin: 12/31/19 09:45 Dose: 300 mg Documented by: Fluconazole (Diflucan 40mg/Ml Suspension -) 100 mg PO DAILY [facility] Last Admin: 12/31/19 09:46 Dose: 100 mg Documented by: Meropenem 1 gm/ Dextrose 100 mls @ 200 mls/hr IVPB Q8H-IV [facility] Last Admin: 12/31/19 09:59 Dose: 200 mls/hr Documented by: Lactobacillus Acidophilus (Bacid -) 1 tab GT DAILY [facility] Last Admin: 12/31/19 09:46 Dose: 1 tab Documented by: Multivitamins/Minerals (Certavite-Antioxidant Liquid) 15 ml PO DAILY [facility] [place] Last Admin: 12/31/19 09:46 Dose: 15 ml Documented by: Nystatin (Mycostatin Ointment -) 1 applic TP BID [facility] Last Admin: 12/31/19 10:00 Dose: 1 applic Documented by: Nystatin (Nystop Powder -) 1 applic TP BID [facility] [place] Last Admin: 12/31/19 10:00 Dose: 1 applic Documented by: Pantoprazole Sodium (Protonix Iv) 40 mg IVPUSH DAILY [facility] Last Admin: 12/31/19 09:45 Dose: 40 mg Documented by: Triamcinolone Acetonide (Aristocort 0.5% Ointment -) 1 applic TP BID [facility] Last Admin: 12/31/19 10:00 Dose: 1 applic Documented by: Vancomycin HCl (Vancomycin Oral Solution) 125 mg PO Q6HPO [facility] Last Admin: 12/31/19 11:01 Dose: 125 mg Documented by: Gen: vented, awake Heart: RRR Lung: scattered rhonchi Abd: soft, nontender Ext: contracted, no edema Laboratory Results - last 24 hr 12/30/19 12/30/19 12/30/19 12:35 12:35 21:50 WBC 14.7 H RBC 2.87 L Hgb 8.9 L Hct 26.7 L MCV 92.8 MCH 30.9 MCHC 33.3 RDW 18.3 H Plt Count 680 H MPV 7.0 L Absolute Neuts (auto) 11.8 H Neutrophils % 80.2 Lymphocytes % 10.6 D Monocytes % 5.9 Eosinophils % 2.5 Basophils % 0.8 Nucleated RBC % 0 Sodium 137 Potassium 4.7 Chloride 104 Carbon Dioxide 30 Anion Gap 3 L BUN 21.8 H Creatinine 0.2 L Est GFR (CKD-EPI)AfAm 186.75 Est GFR (CKD-EPI)NonAf 161.13 POC Glucometer 99 Random Glucose 90 Calcium 8.4 L Total Bilirubin 0.6 AST 63 H ALT 37 Alkaline Phosphatase 241 H Total Protein 5.7 L Albumin 0.8 L 12/31/19 12/31/19 10:10 10:10 WBC 14.5 H RBC 3.02 L Hgb 9.1 L Hct 27.9 L MCV 92.5 MCH 30.2 MCHC 32.7 RDW 17.6 H Plt Count 712 H MPV 6.8 L Absolute Neuts (auto) 12.2 H Neutrophils % 84.5 H Lymphocytes % 7.0 L D Monocytes % 5.0 Eosinophils % 2.7 Basophils % 0.8 Nucleated RBC % 0 Sodium 134 L Potassium 4.7 Chloride 102 Carbon Dioxide 31 Anion Gap 2 L BUN 19.2 H Creatinine 0.2 L Est GFR (CKD-EPI)AfAm 186.75 Est GFR (CKD-EPI)NonAf 161.13 POC Glucometer Random Glucose 137 H Calcium 9.1 Total Bilirubin 0.4 AST 49 H ALT 36 Alkaline Phosphatase 254 H Total Protein 6.2 L Albumin 1.4 L A/P Pneumonia Infected Decubitus Ulcers h/o C diff colitis Severe Sepsis Lactic Acidosis Chronic Respiratory Failure Cerebral Palsy Parkinsons Anemia Wasted/Malnourished - ABX - monitor urine output, creatinine - local wound care - continue volume assist control - poor candidate for weaning - enteral feeds - DVT/GI prophylaxis Dr Alexandre
[2019-12-31] MEDS: COLLAGENASE CLOSTRIDIUM HIST. 30 GRAMS TUBE TP SCH (13:37)
[2019-12-31] MEDS ORDERED: PT OWN MED DRAWER 7, Y5N ONE ×2 (14:00→23:24)
[2020-01-01] MEDS ORDERED: DEXTROSE 5%-WATER 100 ML IVPB ONE ×3 (01:10→17:31)
[2020-01-01] MEDS ORDERED: MEROPENEM 1 GM VIAL (RESTRICTED TO ID) IVPB ONE ×3 (01:10→17:31)
[2020-01-01] MEDS: MEROPENEM 1 GM in DEXTROSE 5%-WATER 100 ML IVPB SCH ×3 (01:23→17:47)
[2020-01-01] MEDS ORDERED: PT OWN MED DRAWER 7, Y5N ONE ×2 (05:13→23:15)
[2020-01-01] MEDS: BANATROL PLUS POWDER PACKET GT SCH ×3 (05:18→23:18)
[2020-01-01] MEDS: VANCOMYCIN 250 MG/5 ML ORAL SOLUTION PO SCH ×4 (05:18→23:18)
[2020-01-01 08:46] LABS: BASO % 0.2 % (0-2.0); EOS % 2.1 % (0-4.5); HEMATOCRIT 27.5 % (35.4-49); HEMOGLOBIN 9.2 GM/dL (11.7-16.9); LYMPH % 9.4 % (8-40); MCH 30.8 pg (25.7-33.7); MCHC 33.3 g/dl (32.0-35.9); MEAN CELL VOLUME 92.6 fl (80-96); MEAN PLT VOLUME 6.9 fl (7.5-11.1); MONO % 5.4 % (3.8-10.2); NEUT % 82.9 % (42.8-82.8); PLATELET COUNT 735 K/MM3 (134-434); RBC 2.97 M/mm3 (4.00-5.60); RDW 17.9 % (11.9-15.9); WHITE BLOOD COUNT 14.1 K/mm3 (4.0-10.0)
[2020-01-01] MEDS: AMINO ACIDS/PROTEIN HYDROLYS 30 ML LIQUID.PKT GT SCH (09:09)
[2020-01-01 09:12] LABS: ALBUMIN 1.3 g/dl (3.4-5.0); BILIRUBIN,TOTAL 0.3 mg/dL (0.2-1); BLOOD UREA NITROGEN 22.3 mg/dL (7-18); CALCIUM 9.3 mg/dL (8.5-10.1); CREATININE 0.2 mg/dL (0.55-1.3); POTASSIUM 5.2 mmol/L (3.5-5.1); TOT PROT 6.4 g/dl (6.4-8.2)
--- NOTE | 2020-01-01 11:02 | PN ---
Progress Note, Physician Chief Complaint: Pneumonia Chronic respiratory failure VRE Anemia Cachexia History of Present Illness: NAD [facility] vent Operative Date: 12/10/19 Pre-Operative Diagnosis: Right hip necrotic ulcer, sacral necrotic ulcer Operation: excisional debridement skin, subcutaneous tissue, muscle right hip. Excisional debridement skin, subcutaneous tissue sacrum. Post-Operative Diagnosis: Same as Pre-op Surgeon: Rich Madrid Anesthesia: MAC Estimated Blood Loss (mls): 30 Operative Report Dictated: Yes + diarrhea+ rectal tube CT chest shows improvement in pneumonia in the left lung On Meropenem day , PO Vanco for cdiff + , On fluconazole for groin mary Completed Valacyclovir for zoster post op left hip, sacral and back wound debridement with surgery - Current Medication List Current Medications: Active Medications Acetaminophen (Tylenol Oral Solution -) 650 mg PO Q6H PRN PRN Reason: fever Last Admin: 12/29/19 23:45 Dose: 650 mg Documented by: Amino Acids (Prosource No Carb Liquid Pkt) 30 ml GT DAILY@0800 [facility] Last Admin: 12/31/19 08:39 Dose: 30 ml Documented by: Ascorbic Acid (Vitamin C -) 500 mg PO BID [facility] Last Admin: 12/31/19 23:28 Dose: 500 mg Documented by: Banana Based Medical Food (Banatrol Plus Powder Packet) 1 packet GT TID [facility] Last Admin: 01/01/20 05:18 Dose: 1 packet Documented by: Collagenase (Santyl -) 1 applic TP DAILY [facility]; Protocol Last Admin: 12/31/19 13:37 Dose: 1 applic Documented by: Ferrous Sulfate (Feosol) 300 mg GT DAILY [facility] Last Admin: 12/31/19 09:45 Dose: 300 mg Documented by: Fluconazole (Diflucan 40mg/Ml Suspension -) 100 mg PO DAILY [facility] Last Admin: 12/31/19 09:46 Dose: 100 mg Documented by: Meropenem 1 gm/ Dextrose 100 mls @ 200 mls/hr IVPB Q8H-IV [facility] Last Admin: 01/01/20 01:23 Dose: 200 mls/hr Documented by: Lactobacillus Acidophilus (Bacid -) 1 tab GT DAILY [facility] Last Admin: 12/31/19 09:46 Dose: 1 tab Documented by: Multivitamins/Minerals (Certavite-Antioxidant Liquid) 15 ml PO DAILY [facility] Last Admin: 12/31/19 09:46 Dose: 15 ml Documented by: Nystatin (Mycostatin Ointment -) 1 applic TP BID [facility] Last Admin: 12/31/19 23:28 Dose: 1 applic Documented by: Nystatin (Nystop Powder -) 1 applic TP BID [facility] Last Admin: 12/31/19 23:28 Dose: 1 applic Documented by: Pantoprazole Sodium (Protonix Iv) 40 mg IVPUSH DAILY [facility] Last Admin: 12/31/19 09:45 Dose: 40 mg Documented by: Triamcinolone Acetonide (Aristocort 0.5% Ointment -) 1 applic TP BID [facility] Last Admin: 12/31/19 23:28 Dose: 1 applic Documented by: Vancomycin HCl (Vancomycin Oral Solution) 125 mg PO Q6HPO [facility] Last Admin: 01/01/20 05:18 Dose: 125 mg Documented by: - Objective Vital Signs: Vital Signs Temperature 99.6 F 01/01/20 10:00 Pulse Rate 106 H 01/01/20 10:00 Respiratory Rate 20 01/01/20 10:00 Blood Pressure 109/61 01/01/20 10:00 O2 Sat by Pulse Oximetry (%) 97 01/01/20 10:00 Constitutional: Yes: No Distress, Calm, Cachectic Cardiovascular: Yes: Regular Rate and Rhythm Respiratory: Yes: Regular, Mechanically Ventilated, Rhonchi (diffuse) Gastrointestinal: Yes: Normal Bowel Sounds, Soft Genitourinary: Yes: Marav[place] Present Musculoskeletal: Yes: Muscle Weakness Extremities: Yes: Other (contracted) Edema: Yes (generalized) Peripheral Pulses WNL: Yes Neurological: Yes: Pre-Existing Deficit Labs: CBC, BMP 01/01/20 08:15 01/01/20 08:15 INR, PTT INR 1.73 (0.83-1.09) H 12/09/19 12:34 Problem List - Problems (1) Pneumonia Assessment/Plan: -Recurrent -Cavitary pne -IV meropenem day -CT chest shows improvement -Pulmonary and ID consult -[facility] vent -Instructed nursing staff to make sure HOB >45 degrees at all times D/C to [place] in AM Problems reviewed: Yes Code(s): J18.9 - PNEUMONIA, UNSPECIFIED ORGANISM (2) Sepsis Assessment/Plan: -Multifactorial -Pne + multiple decubitus ulcers Problems reviewed: Yes Code(s): A41.9 - SEPSIS, UNSPECIFIED ORGANISM (3) Anemia Assessment/Plan: -Previously TAM -Received 2 U PRBC this admission -Continue feosol BID -Iron stores improved -Transfuse only if Hg<7.0 to avoid fluid overload -Injectafer once this admission -AC on hold Problems reviewed: Yes Code(s): D64.9 - ANEMIA, UNSPECIFIED Qualifiers: (4) Cerebral palsy Problems reviewed: Yes Code(s): G80.9 - CEREBRAL PALSY, UNSPECIFIED Qualifiers: (5) Chronic respiratory failure Assessment/Plan: -Mech vent -Pulmonary on board -Bronchodilators -Not a candidate for weaning at this time Problems reviewed: Yes Code(s): J96.10 - CHRONIC RESPIRATORY FAILURE, UNSP W HYPOXIA OR HYPERCAPNIA Qualifiers: (6) Functional quadriplegia Problems reviewed: Yes Code(s): R53.2 - FUNCTIONAL QUADRIPLEGIA (7) Decubital ulcer Assessment/Plan: -Seen by Vascular + General surgery -s/p debridement -IV abx -Agressive turning and positioning -Reposition every two hours while in bed -Air mattress as ordered- discussed -Use drawsheets and Trendelenburg when repositioning to reduce friction and shear -Manageincontinence via timely cleansing, use of appropriate incontinence disposables and use of barrier ointment to intact skin- Phytoplex -Ensure adequate hydration/nutrition, supplementation per primary team -Ensure off-loading to all bony areas (heels, ankles, hips and tailbone) with Allevyn/Optifoam- Heel pads -Clean open wounds with normal saline and apply santyl as ordered. -Cultures: Microbiology 12/24/19 12:22 Bone Gram Stain - Final 12/24/19 12:22 Bone Tissue Culture - Final Escherichia Coli Esbl Chief [employer] Vr Ec Faecalis Proteus Mirabilus - Esbl Produ 12/24/19 12:22 Bone Anaerobic Culture - Final 12/07/19 12:10 Sputum - Endotrachea Suction/Ventilator Gram Stain - Final 12/07/19 12:10 Sputum - Endotrachea Suction/Ventilator Sputum Culture - Final Proteus Mirabilus - Esbl Produ Pseudomonas Aeruginosa Klebsiella Pneumoniae - Esbl 12/07/19 18:20 Hip - Left Gram Stain - Final 12/07/19 18:20 Hip - Left Wound Culture - Final Pseudomonas Aeruginosa Proteus Mirabilus - Esbl Produ Vr Ec Faecium 12/10/19 20:45 Stool Clostridioides difficile Antigen - Final 12/10/19 20:45 Stool Clostridioides difficile Toxin Assay - Final 12/05/19 10:35 Blood - Peripheral Venous Blood Culture - Final NO GROWTH AFTER 5 DAYS INCUBATION 12/05/19 10:35 Blood - Peripheral Venous Blood Culture - Final NO GROWTH AFTER 5 DAYS INCUBATION 12/05/19 12:10 Urine - Urine Maravilla Urine Culture - Final Vr Ec Faecium Problems reviewed: Yes Code(s): L89.90 - PRESSURE ULCER OF UNSPECIFIED SITE, UNSPECIFIED STAGE (8) Severe malnutrition Assessment/Plan: -Prosource -Multivitamin -Vitamin C Problems reviewed: Yes Code(s): E43 - UNSPECIFIED SEVERE PROTEIN-CALORIE MALNUTRITION (9) Diarrhea Assessment/Plan: -Rectal tube -Vanco 125 GT BID x 7 days daily for 7 days Q48H x 7 days Q72H for 30 days -Fluconazole 100 mg GT daily x 7 days Problems reviewed: Yes Code(s): R19.7 - DIARRHEA, UNSPECIFIED Assessment/Plan See problem list Overall poor prognosis
[2020-01-01] MEDS: PANTOPRAZOLE SODIUM 40 MG VIAL IVPUSH SCH (11:10)
[2020-01-01] MEDS: ASCORBIC ACID 500 MG TABLET (FP) PO SCH ×2 (11:10→23:18)
[2020-01-01] MEDS: LACTOBACILLUS ACIDOPHILUS 1 TABLET GT SCH (11:10)
[2020-01-01] MEDS: TRIAMCINOLONE ACET 0.5% OINT 15 GM TUBE TP SCH ×2 (11:11→23:18)
[2020-01-01] MEDS: FLUCONAZOLE 40 MG/ML SUSPENSION PO SCH (11:11)
[2020-01-01] MEDS: MULTIVIT-MINERALS ORAL LIQUID PO SCH (11:11)
[2020-01-01] MEDS: FERROUS SO4 300 MG/5 ML ORAL SOLN UNIT DOSE CUPS GT SCH (11:11)
[2020-01-01] MEDS: NYSTATIN POWDER 100,000 UNITS/GM - 15 GM TOPICAL POWDER TP SCH ×2 (11:24→23:18)
[2020-01-01] MEDS: NYSTATIN 100000 UNIT/GM TOPICAL OINTMENT 15 GM TUBE TP SCH ×2 (11:24→23:18)
--- NOTE | 2020-01-01 11:30 | PN ---
Progress Note (short form) - Note Progress Note: to evaluate dislodged G-Tube. Advised OLIVER Guardado to obtain IR consult to replace G- Tube
[2020-01-01] MEDS: COLLAGENASE CLOSTRIDIUM HIST. 30 GRAMS TUBE TP SCH (12:45)
--- NOTE | 2020-01-01 12:45 | PN ---
Progress Note (short form) - Note Progress Note: Pulmonary No change Lethargic on vent support VSS/Low grade temp /Spo2 98% 12/400/50/5 AC mode Constitutional: Yes: Cachectic, Other (poorly responsive) Eyes: Yes: WNL HENT: Yes: WNL Neck: Yes: Supple (trach) Cardiovascular: Yes: Regular Rate and Rhythm, S1, S2 Respiratory: Yes: Rhonchi (few scatttered rhonchi) Gastrointestinal: Yes: Normal Bowel Sounds, Soft Extremities: Yes: Other (contracted) Labs: reviewed images noted (1) Lactic acidosis Code(s): E87.2 - ACIDOSIS (2) Pneumonia Code(s): J18.9 - PNEUMONIA, UNSPECIFIED ORGANISM (3) Sepsis Code(s): A41.9 - SEPSIS, UNSPECIFIED ORGANISM (4) Anemia Code(s): D64.9 - ANEMIA, UNSPECIFIED Qualifiers: (5) COPD (chronic obstructive pulmonary disease) Code(s): J44.9 - CHRONIC OBSTRUCTIVE PULMONARY DISEASE, UNSPECIFIED Qualifiers: (6) Cerebral palsy Code(s): G80.9 - CEREBRAL PALSY, UNSPECIFIED Qualifiers: (7) Chronic respiratory failure Code(s): J96.10 - CHRONIC RESPIRATORY FAILURE, UNSP W HYPOXIA OR HYPERCAPNIA Qualifiers: (8) Decubital ulcer Code(s): L89.90 - PRESSURE ULCER OF UNSPECIFIED SITE, UNSPECIFIED STAGE (9) Parkinson disease Code(s): G20 - PARKINSON'S DISEASE (10) Severe malnutrition Code(s): E43 - UNSPECIFIED SEVERE PROTEIN-CALORIE MALNUTRITION ASSESSMENT AND PLAN: Pneumonia Infected Decubitus Ulcers h/o C diff colitis Severe Sepsis Lactic Acidosis Chronic Respiratory Failure Cerebral Palsy Parkinsons Anemia - - IVF - monitor urine output, creatinine - wound care - continue volume assist control - poor candidate for weaning - enteral feeds - DVT/GI prophylaxis - f/u chest x-ray Justin Gomez MD -
--- NOTE | 2020-01-01 17:25 | DS ---
Physical Examination Vital Signs: Vital Signs Temperature 98.8 F 01/01/20 14:00 Pulse Rate 100 H 01/01/20 15:44 Respiratory Rate 23 H 01/01/20 15:44 Blood Pressure 110/58 L 01/01/20 14:00 O2 Sat by Pulse Oximetry (%) 97 01/01/20 15:44 Findings/Remarks: Mr Street is a 69 y/o man with functional quadraplegia, cerebral palsy, parkinsons, chronic trach/JT with recurrent volvulous recently admitted at [facility] for possible resection now being transferred from [facility] for fever, purulent drainage from multiple decubitus ulcers on sacrum and hips. In ED pt was tachycardic, tachypneic, febrile. WBC 30, lacate 6. Received 2L IVF, broad spectrum abx to cover PNA and C-diff. CT chest shows bilateral PNA, near complete opacification of R lung, cavitary infiltrate in SHANIKA. CTAP with diffuse enteritis and ascities but no apparent obstruction and no free air. Transferred to ICU for further management. Operative Date: 12/10/19 Pre-Operative Diagnosis: Right hip necrotic ulcer, sacral necrotic ulcer Operation: excisional debridement skin, subcutaneous tissue, muscle right hip. Excisional debridement skin, subcutaneous tissue sacrum. Post-Operative Diagnosis: Same as Pre-op Surgeon: Rich Madrid Anesthesia: MAC Estimated Blood Loss (mls): 30 Operative Report Dictated: Yes + diarrhea+ rectal tube CT chest shows improvement in pneumonia in the left lung (1) Pneumonia Assessment/Plan: -Recurrent -Cavitary pne -IV meropenem day -CT chest shows improvement -Pulmonary and ID consult -[facility] vent -Instructed nursing staff to make sure HOB >45 degrees at all times D/C to [facility] in AM Problems reviewed: Yes Code(s): J18.9 - PNEUMONIA, UNSPECIFIED ORGANISM (2) Sepsis Assessment/Plan: -Multifactorial -Pne + multiple decubitus ulcers Problems reviewed: Yes Code(s): A41.9 - SEPSIS, UNSPECIFIED ORGANISM (3) Anemia Assessment/Plan: -Previously TAM -Received 2 U PRBC this admission -Continue feosol BID -Iron stores improved -Transfuse only if Hg<7.0 to avoid fluid overload -Injectafer once this admission - on hold Problems reviewed: Yes Code(s): D64.9 - ANEMIA, UNSPECIFIED Qualifiers: (4) Cerebral palsy Problems reviewed: Yes Code(s): G80.9 - CEREBRAL PALSY, UNSPECIFIED Qualifiers: (5) Chronic [facility] failure [facility] -Bronchodilators -Not a candidate for weaning at this time Problems reviewed: Yes Code(s): J96.10 - CHRONIC RESPIRATORY FAILURE, UNSP W HYPOXIA OR HYPERCAPNIA Qualifiers: (6) Functional quadriplegia Problems reviewed: Yes Code(s): R53.2 - FUNCTIONAL QUADRIPLEGIA (7) Decubital ulcer Assessment/Plan: -Seen by Vascular + General surgery -s/p debridement -IV abx -Agressive turning and positioning -Reposition every two hours while in bed -Air mattress as ordered- discussed -Use drawsheets and Trendelenburg when repositioning to reduce friction and shear -Manageincontinence via timely cleansing, use of appropriate incontinence disposables and use of barrier ointment to intact skin- Phytoplex -Ensure adequate hydration/nutrition, supplementation per primary team -Ensure off-loading to all bony areas (heels, ankles, hips and tailbone) with Allevyn/Optifoam- Heel pads -Clean open wounds with normal saline and apply santyl as ordered. -Cultures: Microbiology 12/24/19 12:22 Bone Gram Stain - Final 12/24/19 12:22 Bone Tissue Culture - Final Escherichia Coli Esbl Client Executive Vr Ec Faecalis Proteus Mirabilus - Esbl Produ 12/24/19 12:22 Bone Anaerobic Culture - Final 12/07/19 12:10 Sputum - Endotrachea Suction/Ventilator Gram Stain - Final 12/07/19 12:10 Sputum - Endotrachea Suction/Ventilator Sputum Culture - Final Proteus Mirabilus - Esbl Produ Pseudomonas Aeruginosa Klebsiella Pneumoniae - Esbl 12/07/19 18:20 Hip - Left Gram Stain - Final 12/07/19 18:20 Hip - Left Wound Culture - Final Pseudomonas Aeruginosa Proteus Mirabilus - Esbl Produ Vr Ec Faecium 12/10/19 20:45 Stool Clostridioides difficile Antigen - Final 12/10/19 20:45 Stool Clostridioides difficile Toxin Assay - Final 12/05/19 10:35 Blood - Peripheral Venous Blood Culture - Final NO GROWTH AFTER 5 DAYS INCUBATION 12/05/19 10:35 Blood - Peripheral Venous Blood Culture - Final NO GROWTH AFTER 5 DAYS INCUBATION 12/05/19 12:10 Urine - Urine Maravilla Urine Culture - Final Vr Ec Faecium Problems reviewed: Yes Code(s): L89.90 - PRESSURE ULCER OF UNSPECIFIED SITE, UNSPECIFIED STAGE (8) Severe malnutrition Assessment/Plan: -Prosource -Multivitamin -Vitamin C Problems reviewed: Yes Code(s): E43 - UNSPECIFIED SEVERE PROTEIN-CALORIE MALNUTRITION (9) Diarrhea Assessment/Plan: -Rectal tube -Vanco 125 GT BID x 7 days daily for 7 days Q48H x 7 days Q72H for 30 days -Fluconazole 100 mg GT daily x 7 days Problems reviewed: Yes Code(s): R19.7 - DIARRHEA, UNSPECIFIED Assessment/Plan See problem list Overall poor prognosis Constitutional: Yes: Well Nourished, No Distress, Calm Cardiovascular: Yes: Regular Rate and Rhythm Respiratory: Yes: Regular, Mechanically Ventilated Gastrointestinal: Yes: Normal Bowel Sounds, Soft Renal/: Yes: Marav[place] Present Musculoskeletal: Yes: Muscle Weakness Extremities: Yes: Other (contracted) Edema: Yes (generalized) Peripheral Pulses WNL: Yes Neurological: Yes: Pre-Existing Deficit Labs: CBC, BMP 01/01/20 08:15 01/01/20 08:15 Discharge Summary Problems reviewed: Yes Reason For Visit: CLOSTRIDIOIDES DIFFICILE DIARRHEA;SEVERE SEPSIS Current Active Problems C. difficile colitis (Acute) Diarrhea (Acute) Lactic acidosis (Acute) Pneumonia (Acute) Pressure ulcer of hip (Acute) Pressure ulcer, upper back (Acute) Sepsis (Acute) Severe sepsis (Acute) Condition: Stable - Instructions Diet, Activity, Other Instructions: -Vanco 125 GT BID x 7 days daily for 7 days Q48H x 7 days Q72H for 30 days -Fluconazole 100 mg GT daily x 7 days Referrals: Nicola Gomez MD [Primary Care Provider] - Disposition: [facility] - Home Medications Comprehensive Discharge Medication List: Ambulatory Orders RX: Famotidine [Pepcid] 20 mg PO DAILY 10/11/19 RX: Ferrous Sulfate [Feosol] 300 mg GT DAILY 10/11/19 RX: L. Acidophilus/Pectin, [place] [Acidophilus Capsule] 1 each PO DAILY 10/11/19 RX: Multivit-Minerals [Certavite-Antioxidant Liquid] 15 ml PO DAILY 10/11/19 RX: Acetaminophen Oral Solution [Tylenol Oral Solution -] 650 mg PO Q6H PRN soln.oral 01/01/20 RX: Amino Acids/Protein Hydrolys [Prosource No Carb Liquid Pkt] 30 ml GT DAILY@0800 packet 01/01/20 RX: Ascorbic Acid [Vitamin C -] 500 mg PO BID tablet 01/01/20 RX: Collagenase Clostridium Hist. [Santyl -] 1 applic TP DAILY tube 01/01/20 RX: Ferrous Sulfate [Feosol] 300 mg GT DAILY udc 01/01/20 RX: Fluconazole [Diflucan *Suspension* -] 100 mg PO DAILY 7 Days ml 01/01/20 RX: Lactobacillus Acidophilus [Bacid -] 1 tab GT DAILY tab 01/01/20 RX: Multivit-Minerals [Certavite-Antioxidant Liquid] 15 ml PO DAILY cup 01/01/20 RX: Nystatin Ointment [Mycostatin Ointment -] 1 applic TP BID applic 01/01/20 RX: Nystatin Powder [Nystop Powder -] 1 applic TP BID applic 01/01/20 RX: Triamcinolone 0.5% Ointment [Aristocort 0.5% Ointment -] 1 applic TP BID tube 01/01/20 RX: Vancomycin Oral Solution 125 mg PO Q6HPO 60 Days ml 01/01/20 Prescription Drug Monitoring Program (I-STOP) results: I-STOP reviewed and no issues identified
--- NOTE | 2020-01-01 19:58 | OP ---
DATE OF OPERATION: 12/24/2019 PREOPERATIVE DIAGNOSIS: Decubitus ulcers. POSTOPERATIVE DIAGNOSIS: Decubitus ulcers. PROCEDURE: Excisional debridement of skin, subcutaneous fat, muscle, and fascia of the left hip, sacrum, and upper back. SURGEON: Michael Queen MD. BAKERY PASTRY INTER[place]: JAZMINE Salazar. ANESTHESIA: General. OPERATIVE FINDINGS: There were necrotic unstageable wounds from pressure necrosis of the left hip sacrum and upper back. The skin, subcutaneous tissue, fascia, and muscle were nonviable, and over the hip the bone was spongy and clinically consistent with osteomyelitis, and the rest of the findings were unremarkable. DESCRIPTION OF PROCEDURE: The patient was placed on the operating room table in the right lateral decubitus position, and the area of the involved ulcers were prepped with Betadine and draped in sterile fashion, and timeout was taken, and then using a scalpel all nonviable skin and subcutaneous fat, muscle, and fascia were sharply excised from the areas of the left hip, sacrum, and upper back. All tissue was sent for pathological examination. In addition, curettings of the exposed bone of the left hip was sent to microbiology for culture. All wounds were irrigated with a 50% mixture of saline and peroxide followed by saline, and again hemostasis achieved using electrocautery. All wounds were packed with saline soaked Kerlix and dry sterile dressings were placed, and the procedure terminated at this point, and the patient transferred to the post anesthesia care unit in stable condition. Estimated blood loss 20 mL. Replacements: crystalloid. Drains: none. Specimen: nonviable soft tissue to pathology and bone curettings to microbiology. I, Michael Queen, was physically present in the operating room from the time the patient was placed on the operating room table until he was transferred to the postanesthesia care unit in my accompaniment. MD CARLO Marroquin/[id number] MTDD
[2020-01-02] MEDS ORDERED: MEROPENEM 1 GM VIAL (RESTRICTED TO ID) IVPB ONE ×2 (01:42→09:33)
[2020-01-02] MEDS ORDERED: DEXTROSE 5%-WATER 100 ML IVPB ONE ×2 (01:43→09:34)
[2020-01-02] MEDS: MEROPENEM 1 GM in DEXTROSE 5%-WATER 100 ML IVPB SCH ×2 (02:09→09:39)
[2020-01-02] MEDS ORDERED: PT OWN MED DRAWER 7, Y5N ONE (05:37)
[2020-01-02] MEDS: BANATROL PLUS POWDER PACKET GT SCH ×3 (05:47→22:11)
[2020-01-02] MEDS: VANCOMYCIN 250 MG/5 ML ORAL SOLUTION PO SCH ×3 (05:47→17:42)
[2020-01-02] MEDS: FERROUS SO4 300 MG/5 ML ORAL SOLN UNIT DOSE CUPS GT SCH (09:36)
[2020-01-02] MEDS: AMINO ACIDS/PROTEIN HYDROLYS 30 ML LIQUID.PKT GT SCH (09:36)
[2020-01-02] MEDS: PANTOPRAZOLE SODIUM 40 MG VIAL IVPUSH SCH (09:37)
[2020-01-02] MEDS: LACTOBACILLUS ACIDOPHILUS 1 TABLET GT SCH (09:37)
[2020-01-02] MEDS: FLUCONAZOLE 40 MG/ML SUSPENSION PO SCH (09:37)
[2020-01-02] MEDS: ASCORBIC ACID 500 MG TABLET (FP) PO SCH ×2 (09:37→22:11)
[2020-01-02] MEDS: NYSTATIN POWDER 100,000 UNITS/GM - 15 GM TOPICAL POWDER TP SCH ×2 (09:38→22:11)
[2020-01-02] MEDS: TRIAMCINOLONE ACET 0.5% OINT 15 GM TUBE TP SCH ×2 (09:38→22:12)
[2020-01-02] MEDS: MULTIVIT-MINERALS ORAL LIQUID PO SCH (09:38)
[2020-01-02] MEDS: NYSTATIN 100000 UNIT/GM TOPICAL OINTMENT 15 GM TUBE TP SCH ×2 (09:38→22:40)
--- NOTE | 2020-01-02 12:01 | PN ---
Progress Note (short form) - Note Progress Note: Pulmonary Discharged delayed due to mild temp spike Lethargic on vent support VSS/Low grade temp /Spo2 98% 12/400/50/5 AC mode Constitutional: Yes: Cachectic, Other (poorly responsive) Eyes: Yes: WNL HENT: Yes: WNL Neck: Yes: Supple (trach) Cardiovascular: Yes: Regular Rate and Rhythm, S1, S2 Respiratory: Yes: Rhonchi (few scatttered rhonchi) Gastrointestinal: Yes: Normal Bowel Sounds, Soft Extremities: Yes: Other (contracted) Labs: reviewed images noted (1) Lactic acidosis Code(s): E87.2 - ACIDOSIS (2) Pneumonia Code(s): J18.9 - PNEUMONIA, UNSPECIFIED ORGANISM (3) Sepsis Code(s): A41.9 - SEPSIS, UNSPECIFIED ORGANISM (4) Anemia Code(s): D64.9 - ANEMIA, UNSPECIFIED Qualifiers: (5) COPD (chronic obstructive pulmonary disease) Code(s): J44.9 - CHRONIC OBSTRUCTIVE PULMONARY DISEASE, UNSPECIFIED Qualifiers: (6) Cerebral palsy Code(s): G80.9 - CEREBRAL PALSY, UNSPECIFIED Qualifiers: (7) Chronic respiratory failure Code(s): J96.10 - CHRONIC RESPIRATORY FAILURE, UNSP W HYPOXIA OR HYPERCAPNIA Qualifiers: (8) Decubital ulcer Code(s): L89.90 - PRESSURE ULCER OF UNSPECIFIED SITE, UNSPECIFIED STAGE (9) Parkinson disease Code(s): G20 - PARKINSON'S DISEASE (10) Severe malnutrition Code(s): E43 - UNSPECIFIED SEVERE PROTEIN-CALORIE MALNUTRITION ASSESSMENT AND PLAN: Pneumonia Infected Decubitus Ulcers h/o C diff colitis Severe Sepsis Lactic Acidosis Chronic Respiratory Failure Cerebral Palsy Parkinsons Anemia - - IVF - monitor urine output, creatinine - wound care - continue volume assist control - poor candidate for weaning - enteral feeds - DVT/GI prophylaxis - f/u chest x-ray Justin Gomez MD -
--- NOTE | 2020-01-02 13:14 | PN ---
Progress Note, Physician - Current Medication List Current Medications: Active Medications Acetaminophen (Tylenol Oral Solution -) 650 mg PO Q6H PRN PRN Reason: fever Last Admin: 12/29/19 23:45 Dose: 650 mg Documented by: Amino Acids (Prosource No Carb Liquid Pkt) 30 ml GT DAILY@0800 [facility] Last Admin: 01/02/20 09:36 Dose: 30 ml Documented by: Ascorbic Acid (Vitamin C -) 500 mg PO BID ELOINA Last Admin: 01/02/20 09:37 Dose: 500 mg Documented by: Banana Based Medical Food (Banatrol Plus Powder Packet) 1 packet GT TID ELOINA Last Admin: 01/02/20 05:47 Dose: 1 packet Documented by: Collagenase (Santyl -) 1 applic TP DAILY [facility]; Protocol Last Admin: 01/01/20 12:45 Dose: 1 applic Documented by: Ferrous Sulfate (Feosol) 300 mg GT DAILY [facility] Last Admin: 01/02/20 09:36 Dose: 300 mg Documented by: Fluconazole (Diflucan 40mg/Ml Suspension -) 100 mg PO DAILY [facility] Last Admin: 01/02/20 09:37 Dose: 100 mg Documented by: Meropenem 1 gm/ Dextrose 100 mls @ 200 mls/hr IVPB Q8H-IV ELOINA Last Admin: 01/02/20 09:39 Dose: 200 mls/hr Documented by: Lactobacillus Acidophilus (Bacid -) 1 tab GT DAILY [facility] Last Admin: 01/02/20 09:37 Dose: 1 tab Documented by: Multivitamins/Minerals (Certavite-Antioxidant Liquid) 15 ml PO DAILY [facility] Last Admin: 01/02/20 09:38 Dose: 15 ml Documented by: Nystatin (Mycostatin Ointment -) 1 applic TP BID [facility] Last Admin: 01/02/20 09:38 Dose: 1 applic Documented by: Nystatin (Nystop Powder -) 1 applic TP BID [facility] Last Admin: 01/02/20 09:38 Dose: 1 applic Documented by: Pantoprazole Sodium (Protonix Iv) 40 mg IVPUSH DAILY [facility] Last Admin: 01/02/20 09:37 Dose: 40 mg Documented by: Triamcinolone Acetonide (Aristocort 0.5% Ointment -) 1 applic TP BID [facility] Last Admin: 01/02/20 09:38 Dose: 1 applic Documented by: Vancomycin HCl (Vancomycin Oral Solution) 125 mg PO Q6HPO [facility] Last Admin: 01/02/20 05:47 Dose: 125 mg Documented by: - Objective Vital Signs: Vital Signs Temperature 100.6 F H 01/02/20 06:00 Pulse Rate 87 01/02/20 08:11 Respiratory Rate 14 01/02/20 11:57 Blood Pressure 102/47 L 01/02/20 06:00 O2 Sat by Pulse Oximetry (%) 96 01/02/20 11:57 Labs: CBC, BMP 01/01/20 08:15 01/01/20 08:15 INR, PTT INR 1.73 (0.83-1.09) H 12/09/19 12:34 Assessment/Plan (1) Pneumonia Assessment/Plan: -Recurrent fever--ID follow up -Cavitary pne -competed IV meropenem -CT chest shows improvement -Pulmonary and ID consult -Mech vent -Instructed nursing staff to make sure HOB >45 degrees at all times D/C to [facility] in AM Problems reviewed: Yes Code(s): J18.9 - PNEUMONIA, UNSPECIFIED ORGANISM (2) Sepsis Assessment/Plan: -Multifactorial -Pne + multiple decubitus ulcers Problems reviewed: Yes Code(s): A41.9 - SEPSIS, UNSPECIFIED ORGANISM (3) Anemia Assessment/Plan: -Previously TAM -Received 2 U PRBC this admission -Continue feosol BID -Iron stores improved -Transfuse only if Hg<7.0 to avoid fluid overload -Injectafer once this admission -AC on hold Problems reviewed: Yes Code(s): D64.9 - ANEMIA, UNSPECIFIED Qualifiers: (4) Cerebral palsy Problems reviewed: Yes Code(s): G80.9 - CEREBRAL PALSY, UNSPECIFIED Qualifiers: (5) Chronic respiratory failure Assessment/Plan: -Mech vent -Pulmonary on board -Bronchodilators -Not a candidate for weaning at this time Problems reviewed: Yes Code(s): J96.10 - CHRONIC RESPIRATORY FAILURE, UNSP W HYPOXIA OR HYPERCAPNIA Qualifiers: (6) Functional quadriplegia Problems reviewed: Yes Code(s): R53.2 - FUNCTIONAL QUADRIPLEGIA (7) Decubital ulcer Assessment/Plan: -Seen by Vascular + General surgery -s/p debridement -IV abx -Agressive turning and positioning -Reposition every two hours while in bed -Air mattress as ordered- discussed -Use drawsheets and Trendelenburg when repositioning to reduce friction and shear -Manageincontinence via timely cleansing, use of appropriate incontinence disposables and use of barrier ointment to intact skin- Phytoplex -Ensure adequate hydration/nutrition, supplementation per primary team -Ensure off-loading to all bony areas (heels, ankles, hips and tailbone) with Allevyn/Optifoam- Heel pads -Clean open wounds with normal saline and apply santyl as ordered. -Cultures: Microbiology 12/24/19 12:22 Bone Gram Stain - Final 12/24/19 12:22 Bone Tissue Culture - Final Escherichia Coli Esbl Culinary Manager Vr Ec Faecalis Proteus Mirabilus - Esbl Produ 12/24/19 12:22 Bone Anaerobic Culture - Final 12/07/19 12:10 Sputum - Endotrachea Suction/Ventilator Gram Stain - Final 12/07/19 12:10 Sputum - Endotrachea Suction/Ventilator Sputum Culture - Final Proteus Mirabilus - Esbl Produ Pseudomonas Aeruginosa Klebsiella Pneumoniae - Esbl 12/07/19 18:20 Hip - Left Gram Stain - Final 12/07/19 18:20 Hip - Left Wound Culture - Final Pseudomonas Aeruginosa Proteus Mirabilus - Esbl Produ Vr Ec Faecium 12/10/19 20:45 Stool Clostridioides difficile Antigen - Final 12/10/19 20:45 Stool Clostridioides difficile Toxin Assay - Final 12/05/19 10:35 Blood - Peripheral Venous Blood Culture - Final NO GROWTH AFTER 5 DAYS INCUBATION 12/05/19 10:35 Blood - Peripheral Venous Blood Culture - Final NO GROWTH AFTER 5 DAYS INCUBATION 12/05/19 12:10 Urine - Urine [place]av[place] Urine Culture - Final Vr Ec Faecium Problems reviewed: Yes Code(s): L89.90 - PRESSURE ULCER OF UNSPECIFIED SITE, UNSPECIFIED STAGE (8) Severe malnutrition Assessment/Plan: -Prosource -Multivitamin -Vitamin C Problems reviewed: Yes Code(s): E43 - UNSPECIFIED SEVERE PROTEIN-CALORIE MALNUTRITION (9) Diarrhea Assessment/Plan: -Rectal tube -Vanco 125 GT BID x 7 days daily for 7 days Q48H x 7 days Q72H for 30 days -Fluconazole 100 mg GT daily x 7 days Problems reviewed: Yes Code(s): R19.7 - DIARRHEA, UNSPECIFIED
[2020-01-02] MEDS: COLLAGENASE CLOSTRIDIUM HIST. 30 GRAMS TUBE TP SCH (13:19)
--- NOTE | 2020-01-02 13:55 | PN ---
Progress Note (short form) - Note Progress Note: resting comfortably trach to vent low grade temp today trach to vent Vital Signs Period Temp Pulse Resp BP Sys/Gomez Pulse Ox Last 24 Hr 98.7 F-100.6 F 87-106 14-23 91-117/41-65 96-100 cor-rrr lungs decreased bs at bases abd soft, +GT, +jt ext contracted with multiple ulcers CBC, BMP 01/01/20 08:15 01/01/20 08:15 Microbiology 12/24/19 12:22 Bone Gram Stain - Final 12/24/19 12:22 Bone Tissue Culture - Final Escherichia Coli Esbl Human Resources Generalist Vr Ec Faecalis Proteus Mirabilus - Esbl Produ 12/24/19 12:22 Bone Anaerobic Culture - Final 12/07/19 12:10 Sputum - Endotrachea Suction/Ventilator Gram Stain - Final 12/07/19 12:10 Sputum - Endotrachea Suction/Ventilator Sputum Culture - Final Proteus Mirabilus - Esbl Produ Pseudomonas Aeruginosa Klebsiella Pneumoniae - Esbl 12/07/19 18:20 Hip - Left Gram Stain - Final 12/07/19 18:20 Hip - Left Wound Culture - Final Pseudomonas Aeruginosa Proteus Mirabilus - Esbl Produ Vr Ec Faecium 12/10/19 20:45 Stool Clostridioides difficile Antigen - Final 12/10/19 20:45 Stool Clostridioides difficile Toxin Assay - Final 12/05/19 10:35 Blood - Peripheral Venous Blood Culture - Final NO GROWTH AFTER 5 DAYS INCUBATION 12/05/19 10:35 Blood - Peripheral Venous Blood Culture - Final NO GROWTH AFTER 5 DAYS INCUBATION 12/05/19 12:10 Urine - Urine Marav[place] Urine Culture - Final Vr Ec Faecium a/p low grade temp- d/c meropenem- has completed 3 weeks for cavitary pneumonia , observe off antibiotics reculture if fever persists would continue po vancomycin qid for one week and then slow taper as reviewed with [employer] would continue po diflucan for another week c strict contact isolation for highly resistant organisms will need to be maintained add po diflucan overall prognosis remains poor
[2020-01-02 17:33] LABS: BASO % 1.1 % (0-2.0); EOS % 3.9 % (0-4.5); HEMATOCRIT 27.7 % (35.4-49); LYMPH % 12.8 % (8-40); MCH 30.2 pg (25.7-33.7); MCHC 32.6 g/dl (32.0-35.9); MEAN CELL VOLUME 92.6 fl (80-96); MEAN PLT VOLUME 7.5 fl (7.5-11.1); MONO % 6.5 % (3.8-10.2); NEUT % 75.7 % (42.8-82.8); PLATELET COUNT 700 K/MM3 (134-434); RDW 17.6 % (11.9-15.9); WHITE BLOOD COUNT 12.3 K/mm3 (4.0-10.0)
[2020-01-02 18:08] LABS: ALBUMIN 1.1 g/dl (3.4-5.0); BILIRUBIN,TOTAL 0.2 mg/dL (0.2-1); BLOOD UREA NITROGEN 20.6 mg/dL (7-18); CREATININE 0.2 mg/dL (0.55-1.3); POTASSIUM 5.5 mmol/L (3.5-5.1); TOT PROT 6.2 g/dl (6.4-8.2)
[2020-01-02] MEDS ORDERED: SODIUM ZIRCONIUM CYCLOSILICATE (LOKELMA) 5 GM PACKET PO ONE (20:03)
[2020-01-03] MEDS: VANCOMYCIN 250 MG/5 ML ORAL SOLUTION PO SCH ×5 (00:22→23:08)
[2020-01-03] MEDS: BANATROL PLUS POWDER PACKET GT SCH ×3 (05:36→21:36)
[2020-01-03 08:31] LABS: BASO % 0.6 % (0-2.0); EOS % 3.7 % (0-4.5); HEMATOCRIT 24.8 % (35.4-49); HEMOGLOBIN 8.2 GM/dL (11.7-16.9); LYMPH % 10.9 % (8-40); MCH 30.1 pg (25.7-33.7); MCHC 33.1 g/dl (32.0-35.9); MEAN CELL VOLUME 90.7 fl (80-96); MEAN PLT VOLUME 6.9 fl (7.5-11.1); MONO % 6.3 % (3.8-10.2); NEUT % 78.5 % (42.8-82.8); PLATELET COUNT 739 K/MM3 (134-434); RBC 2.74 M/mm3 (4.00-5.60); RDW 17.3 % (11.9-15.9); WHITE BLOOD COUNT 14.5 K/mm3 (4.0-10.0)
[2020-01-03 08:49] LABS: BILIRUBIN,TOTAL 0.4 mg/dL (0.2-1); BLOOD UREA NITROGEN 21.3 mg/dL (7-18); CREATININE 0.2 mg/dL (0.55-1.3); TOT PROT 5.7 g/dl (6.4-8.2)
[2020-01-03] MEDS: ASCORBIC ACID 500 MG TABLET (FP) PO SCH ×2 (10:14→21:36)
[2020-01-03] MEDS: LACTOBACILLUS ACIDOPHILUS 1 TABLET GT SCH (10:14)
[2020-01-03] MEDS: FERROUS SO4 300 MG/5 ML ORAL SOLN UNIT DOSE CUPS GT SCH (10:14)
[2020-01-03] MEDS: PANTOPRAZOLE SODIUM 40 MG VIAL IVPUSH SCH (10:14)
[2020-01-03] MEDS: AMINO ACIDS/PROTEIN HYDROLYS 30 ML LIQUID.PKT GT SCH (10:15)
[2020-01-03] MEDS: MULTIVIT-MINERALS ORAL LIQUID PO SCH (10:15)
[2020-01-03] MEDS: FLUCONAZOLE 40 MG/ML SUSPENSION PO SCH (10:15)
--- NOTE | 2020-01-03 12:22 | PN ---
Progress Note (short form) - Note Progress Note: Pulmonary Polymicrobial infection with resistance Lethargic on vent support VSS/98.9 /Spo2 98% 12/400/50/5 AC mode Constitutional: Yes: Cachectic, Other (poorly responsive) Eyes: Yes: WNL HENT: Yes: WNL Neck: Yes: Supple (trach) Cardiovascular: Yes: Regular Rate and Rhythm, S1, S2 Respiratory: Yes: Rhonchi (few scatttered rhonchi) Gastrointestinal: Yes: Normal Bowel Sounds, Soft Extremities: Yes: Other (contracted) Labs: reviewed images noted (1) Lactic acidosis Code(s): E87.2 - ACIDOSIS (2) Pneumonia Code(s): J18.9 - PNEUMONIA, UNSPECIFIED ORGANISM (3) Sepsis Code(s): A41.9 - SEPSIS, UNSPECIFIED ORGANISM (4) Anemia Code(s): D64.9 - ANEMIA, UNSPECIFIED Qualifiers: (5) COPD (chronic obstructive pulmonary disease) Code(s): J44.9 - CHRONIC OBSTRUCTIVE PULMONARY DISEASE, UNSPECIFIED Qualifiers: (6) Cerebral palsy Code(s): G80.9 - CEREBRAL PALSY, UNSPECIFIED Qualifiers: (7) Chronic respiratory failure Code(s): J96.10 - CHRONIC RESPIRATORY FAILURE, UNSP W HYPOXIA OR HYPERCAPNIA Qualifiers: (8) Decubital ulcer Code(s): L89.90 - PRESSURE ULCER OF UNSPECIFIED SITE, UNSPECIFIED STAGE (9) Parkinson disease Code(s): G20 - PARKINSON'S DISEASE (10) Severe malnutrition Code(s): E43 - UNSPECIFIED SEVERE PROTEIN-CALORIE MALNUTRITION ASSESSMENT AND PLAN: Pneumonia Infected Decubitus Ulcers h/o C diff colitis Severe Sepsis Lactic Acidosis Chronic Respiratory Failure Cerebral Palsy Parkinsons Anemia - - IVF/Antibiotics/Diflucan - monitor urine output, creatinine - wound care - continue volume assist control - poor candidate for weaning - enteral feeds - DVT/GI prophylaxis Justin Gomez MD
--- NOTE | 2020-01-03 13:01 | PN ---
Progress Note, Physician - Current Medication List Current Medications: Active Medications Acetaminophen (Tylenol Oral Solution -) 650 mg PO Q6H PRN PRN Reason: fever Last Admin: 12/29/19 23:45 Dose: 650 mg Documented by: Amino Acids (Prosource No Carb Liquid Pkt) 30 ml GT DAILY@0800 [facility] Last Admin: 01/03/20 10:15 Dose: 30 ml Documented by: Ascorbic Acid (Vitamin C -) 500 mg PO BID ELOINA Last Admin: 01/03/20 10:14 Dose: 500 mg Documented by: Banana Based Medical Food (Banatrol Plus Powder Packet) 1 packet GT TID ELOINA Last Admin: 01/03/20 05:36 Dose: 1 packet Documented by: Collagenase (Santyl -) 1 applic TP DAILY [facility]; Protocol Last Admin: 01/02/20 13:19 Dose: 1 applic Documented by: Ferrous Sulfate (Feosol) 300 mg GT DAILY [facility] Last Admin: 01/03/20 10:14 Dose: 300 mg Documented by: Fluconazole (Diflucan 40mg/Ml Suspension -) 100 mg PO DAILY ELO[facility] Last Admin: 01/03/20 10:15 Dose: 100 mg Documented by: Lactobacillus Acidophilus (Bacid -) 1 tab GT DAILY [facility] Last Admin: 01/03/20 10:14 Dose: 1 tab Documented by: Multivitamins/Minerals (Certavite-Antioxidant Liquid) 15 ml PO DAILY [facility] Last Admin: 01/03/20 10:15 Dose: 15 ml Documented by: Nystatin (Mycostatin Ointment -) 1 applic TP BID [facility] Last Admin: 01/02/20 22:40 Dose: 1 applic Documented by: Nystatin (Nystop Powder -) 1 applic TP BID [facility] Last Admin: 01/02/20 22:11 Dose: 1 applic Documented by: Pantoprazole Sodium (Protonix Iv) 40 mg IVPUSH DAILY [facility] Last Admin: 01/03/20 10:14 Dose: 40 mg Documented by: Triamcinolone Acetonide (Aristocort 0.5% Ointment -) 1 applic TP BID [facility] Last Admin: 01/02/20 22:12 Dose: 1 applic Documented by: Vancomycin HCl (Vancomycin Oral Solution) 125 mg PO Q6HPO [facility] Last Admin: 01/03/20 11:53 Dose: 125 mg Documented by: - Objective Vital Signs: Vital Signs Temperature 98.9 F 01/03/20 05:53 Pulse Rate 101 H 01/03/20 05:53 Respiratory Rate 23 H 01/03/20 11:29 Blood Pressure 122/67 01/03/20 05:53 O2 Sat by Pulse Oximetry (%) 97 01/03/20 11:29 Cardiovascular: Yes: S1, S2 Respiratory: Yes: Mechanically Ventilated Gastrointestinal: Yes: Normal Bowel Sounds, Soft Labs: CBC, BMP 01/03/20 07:30 01/03/20 07:30 INR, PTT INR 1.73 (0.83-1.09) H 12/09/19 12:34 Assessment/Plan (1) Pneumonia Assessment/Plan: -Recurrent fever--ID follow up appreciated--monitor off abx -Cavitary pne -competed IV meropenem -CT chest shows improvement -Pulmonary and ID consult -Mech vent -Instructed nursing staff to make sure HOB >45 degrees at all times D/C to [facility] in AM Problems reviewed: Yes Code(s): J18.9 - PNEUMONIA, UNSPECIFIED ORGANISM (2) Sepsis Assessment/Plan: -Multifactorial -Pne + multiple decubitus ulcers Problems reviewed: Yes Code(s): A41.9 - SEPSIS, UNSPECIFIED ORGANISM (3) Anemia Assessment/Plan: -Previously TAM -Received 2 U PRBC this admission -Continue feosol BID -Iron stores improved -Transfuse only if Hg<7.0 to avoid fluid overload -Injectafer once this admission -AC on hold Problems reviewed: Yes Code(s): D64.9 - ANEMIA, UNSPECIFIED Qualifiers: (4) Cerebral palsy Problems reviewed: Yes Code(s): G80.9 - CEREBRAL PALSY, UNSPECIFIED Qualifiers: (5) Chronic respiratory failure Assessment/Plan: -Mech vent -Pulmonary on board -Bronchodilators -Not a candidate for weaning at this time Problems reviewed: Yes Code(s): J96.10 - CHRONIC RESPIRATORY FAILURE, UNSP W HYPOXIA OR HYPERCAPNIA Qualifiers: (6) Functional quadriplegia Problems reviewed: Yes Code(s): R53.2 - FUNCTIONAL QUADRIPLEGIA (7) Decubital ulcer Assessment/Plan: -Seen by Vascular + General surgery -s/p debridement -OFF IV abx -Agressive turning and positioning -Reposition every two hours while in bed -Air mattress as ordered- discussed -Use drawsheets and Trendelenburg when repositioning to reduce friction and shear -Manageincontinence via timely cleansing, use of appropriate incontinence disposables and use of barrier ointment to intact skin- Phytoplex -Ensure adequate hydration/nutrition, supplementation per primary team -Ensure off-loading to all bony areas (heels, ankles, hips and tailbone) with Allevyn/Optifoam- Heel pads -Clean open wounds with normal saline and apply santyl as ordered. -Cultures: Microbiology 12/24/19 12:22 Bone Gram Stain - Final 12/24/19 12:22 Bone Tissue Culture - Final Escherichia Coli Esbl [facility] Vr Ec Faecalis Proteus Mirabilus - Esbl Produ 12/24/19 12:22 Bone Anaerobic Culture - Final 12/07/19 12:10 Sputum - Endotrachea Suction/Ventilator Gram Stain - Final 12/07/19 12:10 Sputum - Endotrachea Suction/Ventilator Sputum Culture - Final Proteus Mirabilus - Esbl Produ Pseudomonas Aeruginosa Klebsiella Pneumoniae - Esbl 12/07/19 18:20 Hip - Left Gram Stain - Final 12/07/19 18:20 Hip - Left Wound Culture - Final Pseudomonas Aeruginosa Proteus Mirabilus - Esbl Produ Vr Ec Faecium 12/10/19 20:45 Stool Clostridioides difficile Antigen - Final 12/10/19 20:45 Stool Clostridioides difficile Toxin Assay - Final 12/05/19 10:35 Blood - Peripheral Venous Blood Culture - Final NO GROWTH AFTER 5 DAYS INCUBATION 12/05/19 10:35 Blood - Peripheral Venous Blood Culture - Final NO GROWTH AFTER 5 DAYS INCUBATION 12/05/19 12:10 Urine - Urine [place] Urine Culture - Final Vr Ec Faecium Problems reviewed: Yes Code(s): L89.90 - PRESSURE ULCER OF UNSPECIFIED SITE, UNSPECIFIED STAGE (8) Severe malnutrition Assessment/Plan: -Prosource -Multivitamin -Vitamin C Problems reviewed: Yes Code(s): E43 - UNSPECIFIED SEVERE PROTEIN-CALORIE MALNUTRITION (9) Diarrhea Assessment/Plan: -Rectal tube -Vanco 125 GT BID x 7 days daily for 7 days Q48H x 7 days Q72H for 30 days -Fluconazole 100 mg GT daily x 7 days Problems reviewed: Yes Code(s): R19.7 - DIARRHEA, UNSPECIFIED
[2020-01-03] MEDS: NYSTATIN POWDER 100,000 UNITS/GM - 15 GM TOPICAL POWDER TP SCH ×2 (13:17→21:36)
[2020-01-03] MEDS: NYSTATIN 100000 UNIT/GM TOPICAL OINTMENT 15 GM TUBE TP SCH ×2 (13:17→21:37)
[2020-01-03] MEDS: TRIAMCINOLONE ACET 0.5% OINT 15 GM TUBE TP SCH ×2 (13:17→21:37)
[2020-01-03] MEDS: COLLAGENASE CLOSTRIDIUM HIST. 30 GRAMS TUBE TP SCH (13:18)
[2020-01-03] MEDS ORDERED: PT OWN MED DRAWER 7, Y5N ONE (21:34)
[2020-01-03] MEDS: ACETAMINOPHEN 650 MG/20.3 ML ORAL SOLUTION (CUPS) PO PRN (23:07)
[2020-01-04] MEDS ORDERED: SODIUM CHLORIDE 500 ML IV STA (02:24)
[2020-01-04] MEDS: BANATROL PLUS POWDER PACKET GT SCH (05:10)
[2020-01-04] MEDS: VANCOMYCIN 250 MG/5 ML ORAL SOLUTION PO SCH ×2 (05:11→11:43)
[2020-01-04 09:44] LABS: BASO % 0.7 % (0-2.0); EOS % 3.4 % (0-4.5); HEMATOCRIT 27.5 % (35.4-49); HEMOGLOBIN 8.7 GM/dL (11.7-16.9); LYMPH % 9.9 % (8-40); MCH 29.1 pg (25.7-33.7); MCHC 31.8 g/dl (32.0-35.9); MEAN CELL VOLUME 91.7 fl (80-96); MEAN PLT VOLUME 7.4 fl (7.5-11.1); MONO % 6.2 % (3.8-10.2); NEUT % 79.8 % (42.8-82.8); PLATELET COUNT 724 K/MM3 (134-434); RDW 17.4 % (11.9-15.9); WHITE BLOOD COUNT 14.8 K/mm3 (4.0-10.0)
--- NOTE | 2020-01-04 10:37 | DS ---
Physical Examination Vital Signs: Vital Signs Temperature 98.3 F 01/04/20 06:00 Pulse Rate 94 H 01/04/20 08:00 Respiratory Rate 17 01/04/20 08:00 Blood Pressure 122/62 01/04/20 06:00 O2 Sat by Pulse Oximetry (%) 99 01/04/20 08:00 Findings/Remarks: Mr Street is a 69 y/o man with functional quadraplegia, cerebral palsy, parkinsons, chronic trach/JT with recurrent volvulous recently admitted at [facility] for possible resection now being transferred from [facility] for fever, purulent drainage from multiple decubitus ulcers on sacrum and hips. In ED pt was tachycardic, tachypneic, febrile. WBC 30, lacate 6. Received 2L IVF, broad spectrum abx to cover PNA and C-diff. CT chest shows bilateral PNA, near complete opacification of R lung, cavitary infiltrate in SHANIKA. CTAP with diffuse enteritis and ascities but no apparent obstruction and no free air. Transferred to ICU for further management. Operative Date: 12/10/19 Pre-Operative Diagnosis: Right hip necrotic ulcer, sacral necrotic ulcer Operation: excisional debridement skin, subcutaneous tissue, muscle right hip. Excisional debridement skin, subcutaneous tissue sacrum. Post-Operative Diagnosis: Same as Pre-op Surgeon: Rich Madrid Anesthesia: MAC Estimated Blood Loss (mls): 30 Operative Report Dictated: Yes + diarrhea+ rectal tube CT chest shows improvement in pneumonia in the left lung (1) Pneumonia Assessment/Plan: -Recurrent -Cavitary pne -IV meropenem day -CT chest shows improvement -Pulmonary and ID consult -[facility] vent -Instructed nursing staff to make sure HOB >45 degrees at all times D/C to [facility] in AM Problems reviewed: Yes Code(s): J18.9 - PNEUMONIA, UNSPECIFIED ORGANISM (2) Sepsis Assessment/Plan: -Multifactorial -Pne + multiple decubitus ulcers Problems reviewed: Yes Code(s): A41.9 - SEPSIS, UNSPECIFIED ORGANISM (3) Anemia Assessment/Plan: -Previously TAM -Received 2 U PRBC this admission -Continue feosol BID -Iron stores improved -Transfuse only if Hg<7.0 to avoid fluid overload -Injectafer once this admission - on hold Problems reviewed: Yes Code(s): D64.9 - ANEMIA, UNSPECIFIED Qualifiers: (4) Cerebral palsy Problems reviewed: Yes Code(s): G80.9 - CEREBRAL PALSY, UNSPECIFIED Qualifiers: (5) Chronic respiratory failure Assessment/Plan: -[facility] vent -Pulmonary on board -Bronchodilators -Not a candidate for weaning at this time Problems reviewed: Yes Code(s): J96.10 - CHRONIC RESPIRATORY FAILURE, UNSP W HYPOXIA OR HYPERCAPNIA Qualifiers: (6) Functional quadriplegia Problems reviewed: Yes Code(s): R53.2 - FUNCTIONAL QUADRIPLEGIA (7) Decubital ulcer Assessment/Plan: -Seen by Vascular + General surgery -s/p debridement -IV abx -Agressive turning and positioning -Reposition every two hours while in bed -Air mattress as ordered- discussed -Use drawsheets and Trendelenburg when repositioning to reduce friction and sh ear -Manageincontinence via timely cleansing, use of appropriate incontinence disposables and use of barrier ointment to intact skin- Phytoplex -Ensure adequate hydration/nutrition, supplementation per primary team -Ensure off-loading to all bony areas (heels, ankles, hips and tailbone) with Allevyn/Optifoam- Heel pads -Clean open wounds with normal saline and apply santyl as ordered. -Cultures: Microbiology 12/24/19 12:22 Bone Gram Stain - Final 12/24/19 12:22 Bone Tissue Culture - Final Escherichia Coli Esbl [employer] Vr Ec Faecalis Proteus Mirabilus - Esbl Produ 12/24/19 12:22 Bone Anaerobic Culture - Final 12/07/19 12:10 Sputum - Endotrachea Suction/Ventilator Gram Stain - Final 12/07/19 12:10 Sputum - Endotrachea Suction/Ventilator Sputum Culture - Final Proteus Mirabilus - Esbl Produ Pseudomonas Aeruginosa Klebsiella Pneumoniae - Esbl 12/07/19 18:20 Hip - Left Gram Stain - Final 12/07/19 18:20 Hip - Left Wound Culture - Final Pseudomonas Aeruginosa Proteus Mirabilus - Esbl Produ Vr Ec Faecium 12/10/19 20:45 Stool Clostridioides difficile Antigen - Final 12/10/19 20:45 Stool Clostridioides difficile Toxin Assay - Final 12/05/19 10:35 Blood - Peripheral Venous Blood Culture - Final NO GROWTH AFTER 5 DAYS INCUBATION 12/05/19 10:35 Blood - Peripheral Venous Blood Culture - Final NO GROWTH AFTER 5 DAYS INCUBATION 12/05/19 12:10 Urine - Urine Marav[place] Urine Culture - Final Vr Ec Faecium Problems reviewed: Yes Code(s): L89.90 - PRESSURE ULCER OF UNSPECIFIED SITE, UNSPECIFIED STAGE (8) Severe malnutrition Assessment/Plan: -Prosource -Multivitamin -Vitamin C Problems reviewed: Yes Code(s): E43 - UNSPECIFIED SEVERE PROTEIN-CALORIE MALNUTRITION (9) Diarrhea Assessment/Plan: -Rectal tube -Vanco 125 GT BID x 7 days daily for 7 days Q48H x 7 days Q72H for 30 days -Fluconazole 100 mg GT daily x 7 days Problems reviewed: Yes Code(s): R19.7 - DIARRHEA, UNSPECIFIED Assessment/Plan See problem list Overall poor prognosis Constitutional: Yes: No Distress, Calm, Cachectic Cardiovascular: Yes: Regular Rate and Rhythm Respiratory: Yes: Regular, Mechanically Ventilated, Rhonchi (diffuse) Gastrointestinal: Yes: Normal Bowel Sounds, Soft Renal/: Yes: Maravilla Present Musculoskeletal: Yes: Muscle Weakness Extremities: Yes: Other (contracted) Edema: Yes (generalized) Peripheral Pulses WNL: Yes Neurological: Yes: Pre-Existing Deficit Labs: CBC, BMP 01/04/20 07:40 01/03/20 07:30 Discharge Summary Problems reviewed: Yes Reason For Visit: CLOSTRIDIOIDES DIFFICILE DIARRHEA;SEVERE SEPSIS Current Active Problems C. difficile colitis (Acute) Diarrhea (Acute) Lactic acidosis (Acute) Pneumonia (Acute) Pressure ulcer of hip (Acute) Pressure ulcer, upper back (Acute) Sepsis (Acute) Severe sepsis (Acute) Condition: Stable - Instructions Diet, Activity, Other Instructions: -Vanco 125 GT BID x 7 days daily for 7 days Q48H x 7 days Q72H for 30 days -Fluconazole 100 mg GT daily x 7 days Referrals: Nicola Gomez MD [Primary Care Provider] - [facility] - Home Medications Comprehensive Discharge Medication List: Ambulatory Orders Famotidine [Pepcid] 20 mg PO DAILY 10/11/19 Ferrous Sulfate [Feosol] 300 mg GT DAILY 10/11/19 L. Acidophilus/Pectin, [place] [Acidophilus Capsule] 1 each PO DAILY 10/11/19 Multivit-Minerals [Certavite-Antioxidant Liquid] 15 ml PO DAILY 10/11/19 Acetaminophen Oral Solution [Tylenol Oral Solution -] 650 mg PO Q6H PRN soln.oral 01/01/20 Amino Acids/Protein Hydrolys [Prosource No Carb Liquid Pkt] 30 ml GT DAILY@0800 packet 01/01/20 Ascorbic Acid [Vitamin C -] 500 mg PO BID tablet 01/01/20 Collagenase Clostridium Hist. [Santyl -] 1 applic TP DAILY tube 01/01/20 Ferrous Sulfate [Feosol] 300 mg GT DAILY udc 01/01/20 Fluconazole [Diflucan *Suspension* -] 100 mg PO DAILY 7 Days ml 01/01/20 Lactobacillus Acidophilus [Bacid -] 1 tab GT DAILY tab 01/01/20 Multivit-Minerals [Certavite-Antioxidant Liquid] 15 ml PO DAILY cup 01/01/20 Nystatin Ointment [Mycostatin Ointment -] 1 applic TP BID applic 01/01/20 Nystatin Powder [Nystop Powder -] 1 applic TP BID applic 01/01/20 Triamcinolone 0.5% Ointment [Aristocort 0.5% Ointment -] 1 applic TP BID tube 01/01/20 Vancomycin Oral Solution 125 mg PO Q6HPO 60 Days ml 01/01/20 Prescription Drug Monitoring Program (I-STOP) results: I-STOP reviewed and no issues identified
[2020-01-04] MEDS: PANTOPRAZOLE SODIUM 40 MG VIAL IVPUSH SCH (11:06)
[2020-01-04] MEDS: AMINO ACIDS/PROTEIN HYDROLYS 30 ML LIQUID.PKT GT SCH (11:06)
[2020-01-04] MEDS: TRIAMCINOLONE ACET 0.5% OINT 15 GM TUBE TP SCH (11:06)
[2020-01-04] MEDS: LACTOBACILLUS ACIDOPHILUS 1 TABLET GT SCH (11:07)
[2020-01-04] MEDS: NYSTATIN 100000 UNIT/GM TOPICAL OINTMENT 15 GM TUBE TP SCH (11:07)
[2020-01-04] MEDS: COLLAGENASE CLOSTRIDIUM HIST. 30 GRAMS TUBE TP SCH (11:07)
[2020-01-04] MEDS: ASCORBIC ACID 500 MG TABLET (FP) PO SCH (11:07)
[2020-01-04] MEDS: NYSTATIN POWDER 100,000 UNITS/GM - 15 GM TOPICAL POWDER TP SCH (11:07)
[2020-01-04] MEDS: MULTIVIT-MINERALS ORAL LIQUID PO SCH (11:08)
[2020-01-04] MEDS: FERROUS SO4 300 MG/5 ML ORAL SOLN UNIT DOSE CUPS GT SCH (11:08)
[2020-01-04] MEDS: FLUCONAZOLE 40 MG/ML SUSPENSION PO SCH (11:09)
[2020-01-04] MEDS: ACETAMINOPHEN 650 MG/20.3 ML ORAL SOLUTION (CUPS) PO PRN (11:42)
--- NOTE | 2020-01-04 11:46 | PN ---
Progress Note (short form) - Note Progress Note: PULMONARY Vented, awake. Low grade fever overnight. Vital Signs Period Temp Pulse Resp BP Sys/Gomez Pulse Ox Last 24 Hr 97.5 F-100.8 F 94-111 17-23 85-145/54-74 94-100 Gen: vented, awake Heart: RRR Lung: scattered rhonchi Abd: soft, nontender Ext: contracted, no edema CBC, BMP 01/04/20 07:40 01/03/20 07:30 Active Medications Acetaminophen (Tylenol Oral Solution -) 650 mg PO Q6H PRN PRN Reason: fever Last Admin: 01/04/20 11:42 Dose: 650 mg Documented by: Amino Acids (Prosource No Carb Liquid Pkt) 30 ml GT DAILY@0800 [facility] Last Admin: 01/04/20 11:06 Dose: 30 ml Documented by: Ascorbic Acid (Vitamin C -) 500 mg PO BID [facility]LO[facility] Last Admin: 01/04/20 11:07 Dose: 500 mg Documented by: Banana Based Medical Food (Banatrol Plus Powder Packet) 1 packet GT TID [facility]LO[facility] Last Admin: 01/04/20 05:10 Dose: 1 packet Documented by: Collagenase (Santyl -) 1 applic TP DAILY [facility]; Protocol Last Admin: 01/04/20 11:07 Dose: 1 applic Documented by: Ferrous Sulfate (Feosol) 300 mg GT DAILY [facility] Last Admin: 01/04/20 11:08 Dose: 300 mg Documented by: Fluconazole (Diflucan 40mg/Ml Suspension -) 100 mg PO DAILY [facility] Last Admin: 01/04/20 11:09 Dose: 100 mg Documented by: Lactobacillus Acidophilus (Bacid -) 1 tab GT DAILY [facility] Last Admin: 01/04/20 11:07 Dose: 1 tab Documented by: Multivitamins/Minerals (Certavite-Antioxidant Liquid) 15 ml PO DAILY [facility] Last Admin: 01/04/20 11:08 Dose: 15 ml Documented by: Nystatin (Mycostatin Ointment -) 1 applic TP BID [facility] Last Admin: 01/04/20 11:07 Dose: 1 applic Documented by: Nystatin (Nystop Powder -) 1 applic TP BID [facility] Last Admin: 01/04/20 11:07 Dose: 1 applic Documented by: Pantoprazole Sodium (Protonix Iv) 40 mg IVPUSH DAILY [facility] Last Admin: 01/04/20 11:06 Dose: 40 mg Documented by: Triamcinolone Acetonide (Aristocort 0.5% Ointment -) 1 applic TP BID [facility] Last Admin: 01/04/20 11:06 Dose: 1 applic Documented by: Vancomycin HCl (Vancomycin Oral Solution) 125 mg PO Q6HPO [facility] Last Admin: 01/04/20 11:43 Dose: 125 mg Documented by: A/P Pneumonia Infected Decubitus Ulcers h/o C diff colitis Severe Sepsis Lactic Acidosis Chronic Respiratory Failure Cerebral Palsy Parkinsons Anemia - off antibiotics - monitor urine output, creatinine - wound care - continue volume assist control - poor candidate for weaning - enteral feeds - DVT/GI prophylaxis - recommend palliative care
[2020-01-04 14:29] VITALS: BP 107/53; PULSE 96; TEMP 100.8
== END 2020-01-04 14:44 | DRG 853 ==
LOC: JER 09:42 → JERBED 13:45 → JICU 18:37 → J5S 12-07 22:05
PROVIDERS: ADMIT Family Medicine; ATTEND Family Medicine
PROC: 5A1955Z Respiratory Ventilation, Greater than 96 Consecutive Hours (ICD-10-PCS; 2019-12-05)
PROC: 30233N1 Transfusion of Nonautologous Red Blood Cells into Peripheral Vein, Percutaneous Approach (ICD-10-PCS; 2019-12-07)
PROC: 0JB70ZZ Excision of Back Subcutaneous Tissue and Fascia, Open Approach (ICD-10-PCS; 2019-12-10)
PROC: 0KBN0ZZ Excision of Right Hip Muscle, Open Approach (ICD-10-PCS; principal; 2019-12-10 14:30)
PROC: 0JB70ZZ Excision of Back Subcutaneous Tissue and Fascia, Open Approach (ICD-10-PCS; 2019-12-24)
PROC: 0KBG0ZZ Excision of Left Trunk Muscle, Open Approach (ICD-10-PCS; 2019-12-24)
PROC: 0KBP0ZZ Excision of Left Hip Muscle, Open Approach (ICD-10-PCS; 2019-12-24)
PROC: 3E10X8Z Irrigation of Skin and Mucous Membranes using Irrigating Substance (ICD-10-PCS; 2019-12-24)
DX: A41.89 Other specified sepsis (principal); L89.103 Pressure ulcer of unspecified part of back, stage 3; J69.0 Pneumonitis due to inhalation of food and vomit; R53.2 Functional quadriplegia; E43 Unspecified severe protein-calorie malnutrition; K56.2 Volvulus; E87.2 Acidosis; J90 Pleural effusion, not elsewhere classified; J96.10 Chronic respiratory failure, unspecified whether with hypoxia or hypercapnia; R18.8 Other ascites; R64 Cachexia; Z68.1 Body mass index [BMI] 19.9 or less, adult; A04.72 Enterocolitis due to Clostridium difficile, not specified as recurrent; L03.311 Cellulitis of abdominal wall; N17.9 Acute kidney failure, unspecified; I96 Gangrene, not elsewhere classified; R00.0 Tachycardia, unspecified; I95.9 Hypotension, unspecified; J44.9 Chronic obstructive pulmonary disease, unspecified; F20.9 Schizophrenia, unspecified; G20 Parkinson's disease; D72.829 Elevated white blood cell count, unspecified; Z93.0 Tracheostomy status; Z93.1 Gastrostomy status; G40.909 Epilepsy, unspecified, not intractable, without status epilepticus; G80.9 Cerebral palsy, unspecified; F78 Other intellectual disabilities; R65.20 Severe sepsis without septic shock; D64.9 Anemia, unspecified; R19.7 Diarrhea, unspecified
CPT/HCPCS: 36415; 36430; 36600; 49465; 71045-TC-FY; 71250-TC; 71260-TC; 74018-TC-FY; 74019-TC-FY; 74177-TC; 80048; 80053; 81003; 82272; 82550; 82553; 82728; 82803; 82962; 83540; 83550; 83605; 83735; 84100; 84484; 85025; 85027; 85610; 85730; 86850; 86870; 86900; 86901; 86902; 86922; 87040; 87070; 87075; 87086; 87186; 87205; 87324; 87449; 88304-TC; 93005; 93010; 94002; 94640; 94760; 99291; E0186; G0480; J0131; J1439; J1644; P9047; P9058; Q9967; U0003

== ENCOUNTER 2020-01-08 21:05 | Inpatient (IN) | payer OTHER ==
[2020-01-08 21:10] VITALS: BMI 19.5
--- NOTE | 2020-01-08 23:15 | PDOC ---
History of Present Illness - General Chief Complaint: G Tube Problem Stated Complaint: G-TUBE PLACEMENT Time Seen by Provider: 01/08/20 22:59 - History of Present Illness Initial Comments: HPI: 01/08/20 23:14 69 yo M cerebral palsy, intellectual disabilities, Parkinson's Disease, chronic respiratory failure s/p trach-vent dependent, COPD, J-tube (for feeds), and G tube (for decompression), recently admitted with PNA sepsis and found to have C. diff, sent from [facility] due to J-tube displacement. Patient unable to provide any history. ROS: Patient unable to provide. PE: Gen: appears thin, chronically ill Neuro: does not follow commands or speak, no movement of limbs HEENT: atraumatic Neck: trachea with tracheostomy, connected to ventilator CV: regular rate, regular rhythm, no murmurs, rubs, or gallops Pulm: coarse lung sounds Abd: soft, non-distended, non-tender. G-tube in place, draining green fluid into bag. MSK: full ROM, intact pulses Extr: no edema, no deformities Skin: warm, dry MDM: Discussed with Ulises, who confirmed that patient's J tube is dislodged and they are unable to feed him, prompting him to be sent to the ER. Patient will have to be admitted for J tube. - CBC, CMP - EKG, CXR - COVID - admit for J tube correction 01/08/20 23:45 CXR with patient curled up, white out of R lung. Patient satting well. 01/09/20 00:22 Sinus tach at 102, AK 150, QRS 78, QTc 448. 01/09/20 02:18 WBC 13, Hgb 8.7, essentially unchanged from recent admission. Will f/u CMP, EKG, admit. 01/09/20 02:21 Albumin 1.1, glucose 65. Will give D50, admit. Past History - Medical History Allergies/Adverse Reactions: Allergies Allergy/AdvReac Type Severity Reaction Status Date / Time No Known Allergies Allergy Verified 01/08/20 21:06 Home Medications: Ambulatory Orders Famotidine [Pepcid] 20 mg PO DAILY 10/11/19 Ferrous Sulfate [Feosol] 300 mg GT DAILY 10/11/19 L. Acidophilus/Pectin, [place] [Acidophilus Capsule] 1 each PO DAILY 10/11/19 Multivit-Minerals [Certavite-Antioxidant Liquid] 15 ml PO DAILY 10/11/19 Acetaminophen Oral Solution [Tylenol Oral Solution -] 650 mg PO Q6H PRN soln.oral 01/01/20 Amino Acids/Protein Hydrolys [Prosource No Carb Liquid Pkt] 30 ml GT DAILY@0800 packet 01/01/20 Ascorbic Acid [Vitamin C -] 500 mg PO BID tablet 01/01/20 Collagenase Clostridium Hist. [Santyl -] 1 applic TP DAILY tube 01/01/20 Ferrous Sulfate [Feosol] 300 mg GT DAILY udc 01/01/20 Fluconazole [Diflucan *Suspension* -] 100 mg PO DAILY 7 Days ml 01/01/20 Lactobacillus Acidophilus [Bacid -] 1 tab GT DAILY tab 01/01/20 Multivit-Minerals [Certavite-Antioxidant Liquid] 15 ml PO DAILY cup 01/01/20 Nystatin Ointment [Mycostatin Ointment -] 1 applic TP BID applic 01/01/20 Nystatin Powder [Nystop Powder -] 1 applic TP BID applic 01/01/20 Triamcinolone 0.5% Ointment [Aristocort 0.5% Ointment -] 1 applic TP BID tube 01/01/20 Vancomycin Oral Solution 125 mg PO Q6HPO 60 Days ml 01/01/20 Asthma: Yes COPD: Yes (resp failure,trach-vent dependent,pneumonia) GI Disorders: (pt has a jtube that is clamped and a dislodged gtube,e ntercolitis due to cd) HTN: Yes Psychiatric Problems: Yes (schizopfrenia) Seizures: Yes - Surgical History Abdominal Surgery: Yes (G tube and J tube) - Immunization History Immunization Up to Date: Yes - Psycho-Social/Smoking History Smoking History: Unknown if ever smoked Have you smoked in the past 12 months: No Information on smoking cessation initiated: No - Substance Abuse Hx (Audit-C & DAST Scrn) How often the patient has a drink containing alcohol: Never Score: In Men: 4 or > Positive; In Women: 3 or > Positive: 0 Screen Result (Pos requires Nsg. Audit-10AR): Negative In the last yr the pt used illegal drug/Rx for NonMed reason: No Score: Yes response is considered Positive: 0 Screen Result (Positive result requires Nsg. DAST-10): Negative *Physical Exam - Vital Signs Last Vital Signs Temp Pulse Resp BP Pulse Ox 97.8 F 79 21 H 101/60 98 01/08/20 21:06 01/08/20 21:06 01/08/20 21:14 01/08/20 21:06 01/08/20 21:06 ED Treatment Course - LABORATORY CBC & Chemistry Diagram: 01/09/20 01:36 01/09/20 01:36 Discharge - Discharge Information Problems reviewed: Yes Clinical Impression/Diagnosis: Dislodged jejunostomy tube - Follow up/Referral - Patient Discharge Instructions - Post Discharge Activity
--- NOTE | 2020-01-08 23:54 | PDOC ---
Documentation entered by Jaspreet Horner SCRIBE, acting as scribe for Berkley Bains MD. Berkley Bains MD: This documentation has been prepared by the [employer] Xhesika, SCRIBE, under my direction and personally reviewed by me in its entirety. I confirm that the documentation accurately reflects all work, treatment, procedures, and medical decision making performed by me. Attending Attestation - Resident Resident Name: [email or web address] - ED Attending Attestation I have performed the following: I have examined & evaluated the patient, The case was reviewed & discussed with the resident, I agree w/resident's findings & plan, Exceptions are as noted - HPI HPI: 01/08/20 23:10 The patient is a 69 year old female with a past medical history of cerebral palsy, intellectual disabilities, Parkinson's Disease, chronic respiratory failure s/p trach- vent dependent, COPD, J-tube (for feeds), and G tube (for decompression) who presents to the ED BIBA from [facility] for dislodged J tube. Patient is a poor historian and unable to contribute to further history due to his clinical condition. Allergies: NKA PCP: Nicola Gomez - Physicial Exam PE: 01/08/20 23:[address] CDI lungs clear bilat heart rrr no mrg abd soft significant central hernia. peg in place.ext contracted. - Medical Decision Making 01/08/20 23:53 69 yo male h/o trache peg, J tube. here with dislogded j tube, will requir admission for iR placement. labs peding. signed out to oncoming physician. pending admission Discharge - Discharge Information Problems reviewed: Yes Clinical Impression/Diagnosis: Dislodged jejunostomy tube Condition: Stable Disposition: [facility] - Follow up/Referral - Patient Discharge Instructions - Post Discharge Activity
[2020-01-09 01:59] LABS: BASO % 1.1 % (0-2.0); EOS % 3.2 % (0-4.5); HEMATOCRIT 26.7 % (35.4-49); HEMOGLOBIN 8.7 GM/dL (11.7-16.9); MCH 30.1 pg (25.7-33.7); MCHC 32.5 g/dl (32.0-35.9); MEAN CELL VOLUME 92.5 fl (80-96); MEAN PLT VOLUME 7.3 fl (7.5-11.1); MONO % 5.1 % (3.8-10.2); NEUT % 80.6 % (42.8-82.8); PLATELET COUNT 864 K/MM3 (134-434); RBC 2.88 M/mm3 (4.00-5.60); RDW 17.4 % (11.9-15.9); WHITE BLOOD COUNT 13.3 K/mm3 (4.0-10.0)
[2020-01-09 02:17] LABS: ALBUMIN 1.1 g/dl (3.4-5.0); BLOOD UREA NITROGEN 19.8 mg/dL (7-18); CALCIUM 8.3 mg/dL (8.5-10.1); CREATININE 0.2 mg/dL (0.55-1.3); POTASSIUM 4.9 mmol/L (3.5-5.1); TOT PROT 6.5 g/dl (6.4-8.2)
[2020-01-09] MEDS ORDERED: DEXTROSE 50%-WATER - 25 GM/50 ML VIAL IVPUSH ONE ×2 (02:20→07:43)
[2020-01-09] MEDS ORDERED: DEXTROSE 50%-WATER - 25 GM/50 ML VIAL ONE (02:40)
--- OUTSIDE RECORDS SUMMARY | 2020-01-09 02:53 | XMS ---
:1950 Author Organization [facility] Care Team Providers Name Role Phone MD MARIN Unavailable Unavailable DO REINIER Unavailable Unavailable Chandy Unavailable Unavailable Chandy Unavailable Unavailable Chandy Unavailable Unavailable Chandy Unavailable Unavailable Chandy Unavailable Unavailable SINCERE Unavailable Unavailable Re-disclosure Warning The records that you are about to access may contain information from federally- assisted alcohol or drug abuse programs. If such information is present, then the following federally mandated warning applies: This information has been disclosed to you from records protected by federal confidentiality rules (42 CFR part 2). The federal rules prohibit you from making any further disclosure of this information unless further disclosure is expressly permitted by the written consent of the person to whom it pertains or as otherwise permitted by 42 CFR part 2. A general authorization for the release of medical or other information is NOT sufficient for this purpose. The Federal rules restrict any use of the information to criminally investigate or prosecute any alcohol or drug abuse patient.The records that you are about to access may contain highly sensitive health information, the redisclosure of which is protected by Article 27-F of the [facility] Public Health law. If you continue you may haveaccess to information: Regarding HIV / AIDS; Provided by facilities licensed or operated by the [facility] Office of Mental Health; or Provided by the [facility] Office for People With Developmental Disabilities. If such information is present, then the following [facility] mandated warning applies: This information has been disclosed to you from confidential records which are protected by state law. State law prohibits you from making any further disclosure of this information without the specific written consent of the person to whom it pertains, or as otherwise permitted by law. Any unauthorized further disclosure in violation of state law may result in a fine or alf sentence or both. A general authorization for the release of medical or other information is NOT sufficient authorization for further disclosure. Encounters Encounter Providers Location Date Indications Data Source(s ) Outpatient 05/01/2019 [facility] 08:10:51 AM [facility] Inpatient Attender: Rich [facility] RESPIRATORY DISTRESS Outpatient 04/25/2019 08:00:00 [facility] Outpatient 04/25/2019 07:55:00 [facility] Outpatient 04/23/2019 10:10:00 [facility] Outpatient 04/22/2019 09:45:00 [facility] Outpatient 04/22/2019 04:45:00 [facility] Inpatient Admitter: 04/19/2019 12:00:00 Altered Mental [facility] MILI HILLS EST - 05/07/2019 Status; Unre sponsive Taoist 02:53:00 PM [facility] Altered Mental Status; Unresponsive Patient discharged. S 04/16/2019 12:58:40 [facility] PM EST [facility] Admitter: DIOGO 04/16/2019 12:16:23 R13.12 OROH [facility]AL [facility]2019 DYSPHAGIA [facility] 04:00:00 PM EST R13.12 OROHPHARYNGEAL DYSPHAGIA Patient discharged. Outpatient 04/01/2019 07:40:00 [facility] AM [facility] Outpatient 03/31/2019 02:30:22 [facility] PM EST [facility] Inpatient Admitter: MILI 03/25/2019 12:00:00 shortness of [facility] REINIER AM EST - 04/06/2019 [facility] 07:40:00 PM EST shortness of breath Patient discharged. Inpatient Admitter: MILI 03/11/2019 12:00:00 AM Pneumo freddy [facility] REINIER EST - 03/17/2019 [facility] 08:10:00 PM EST Pneumonia Patient discharged. Emergency 02/19/2019 12:22:24 PM EST Tube Comp lication [facility] Taoist - 02/19/2019 04:21:00 PM Hospital EST Tube Complication Patient discharged. Outpatient 02/17/2019 10:22:47 [facility] AM EST [facility] ital Outpatient 02/12/2019 01:46:02 [facility] PM EDT [facility] Outpatient 02/10/2019 03:05:00 [facility] PM EDT [facility] Outpatient 02/10/2019 03:00:00 [facility] PM EDT [facility] Inpatient Admitter: 02/07/2019 11:00:00 Respiratory Dist ress [facility] CHAY PM EDT - 02/18/2019 [facility] 01:34:00 PM EST Respiratory Distress Patient discharged. Outpatient 01/21/2019 02:17:13 [facility] PM EDT [facility] Outpatient 01/11/2019 06:55:00 [facility] PM EDT [facility] Out[facility] 01/11/2019 12:45:00 [facility] PM EDT [facility] Outpatient 01/11/2019 12:40:00 [facility] PM EDT [facility] Outpatient 01/10/2019 12:10:00 [facility] PM EDT [facility] Inpatient Admitter: MILI 01/10/2019 12:00:00 Shortness of [facility] REINIER AM EDT - 01/24/2019 [facility] 05:49:00 PM EDT Shortness of breath Patient discharged. Outpatient 12/30/2018 02:09:15 [facility] PM EDT [facility] Outpatient 12/29/2018 10:25:00 [facility] AM EDT [facility] Outpatient 12/26/2018 03:00:00 [facility] PM EDT [facility] Outpatient 12/22/2018 12:30:34 [facility] PM EDT [facility] Outpatient 12/17/2018 10:45:00 [facility] PM EDT [facility] Outpatient 12/17/2018 10:40:00 [facility] PM EDT [facility] Outpatient 12/17/2018 10:47:18 [facility] AM EDT [facility] Outpatient 12/13/2018 05:05:00 [facility] PM EDT [facility] Inpatient Admitter: MILI 12/12/2018 12:00:00 Unrespons britni; [facility] EDT - 12/30/2018 [facility] 08:20:00 PM EDT Unresponsive; Sepsis Patient discharged. Outpatient 11/17/2018 08:25:37 AM [facility] Inpatient Admitter: MILI 11/07/2018 07:16:58 PM [facility] Patient admitted. Inpatient Admitter: MILI HILLS 11/07/2018 12:00:00 [facility] 04:44:00 PM EDT Patient discharged. Inpatient 11/07/2018 12:00:00 AM EDT Critical [facility] hospital Immunizations Vaccine Date Status Description Data Source(s) This CVX code 02/27/2019 completed Influenza Vaccine 02/27/2019 [facility] allows reporting 12:00:00 AM EST [place] of a vaccination Hea lt when formulation Sys tem Inc is unknown (for example, when recording a Influenza vaccination when noted on a vaccination card) Influenza, high 01/24/2019 completed Influenza High 01/24/2019 [facility] dose seasonal 12:00:00 AM EDT Dose Vaccine PF [employer] Pneumococcal 09/30/2018 completed Pneumococcal 09/30/2018 [facility] conjugate PCV 13 12:00:00 AM EDT Conjugate [facility] ([facility] Medications Medication Brand Start Product Dose Route Administrative Pharmacy [facility] Indications Reaction Description Data Name Date Form Instructions Instructions Source(s) Prednisone predni 10 mg Oral active Take 10 mg Bon 10 MG Oral SONE 2019 by mouth [facility] Tablet (DELTA 12:00: daily (with arity predniSONE SONE) 00 AM breakfast). Health (DELTASONE) 10 mg EST System Inc 10 mg tablet tablet 1 ML LORaze mg IntraV active 1 mg, Bon Lorazepam 2 fern 2019 ENous IntraVENous, [facility] MG/ML (ATIVA 10:00: EVERY [place] Injection N) 00 PM BEDTIME, 7 Hea lth LORazepam inject EST doses, First System Inc (ATIVAN) ion 1 dose (after injection 1 mg last mg modification ) on Caro 05/07/19 at 2200, Last dose on Sat05/13/19 at 2200 Medication administered onsite potassium phosphorus (K 05/07/2019 1 {tbl} Oral active 1 Tab, Bon phosphate 155 PHOS NEUTRAL) 10:00:00 AM Oral, 2 [facility] MG / Sodium 250 mg tablet EST TIME S [place] Phosphate, 1 Tab DAILY, 2 Heal th Dibasic 852 doses, System MG / Sodium First Inc Phosphate, dose on Monobasic 130 Caro MG Oral 05/07/19 Tablet at 1000, phosphorus (K Last dose PHOS NEUTRAL) on Caro 250 mg tablet 05/07/19 1 Tab at 1800 Medication administered onsite Prednisone 10 predniSONE 05/07/2019 10 Oral active 10 mg, Oral, Bon MG Oral (DELTASONE) 08:00:00 AM mg GABRIELE LY WITH [facility] Tablet tablet 10 mg EST BREAKFAST, [place] predniSONE First dose on Health (DELTASONE) Caro 05/07/19 S ystem tablet 10 mg at 0800, Inc Until Discontinued Medication administered onsite potassium phosphorus (K 05/07/2019 1 Oral active Take 1 Bon phosphate 155 MG PHOS NEUTRAL) 12:00:00 AM {tbl} Tab by [facility] / Sodium 250 mg tablet EST mouth C harity Phosphate, two Health Dibasic 852 MG / (2) Sys tem Sodium times Inc Phosphate, a day. Monobasic 130 MG Oral Tablet phosphorus (K PHOS NEUTRAL) 250 mg tablet Methylprednisolo methylPREDNISolo 05/06/2019 20 mg IntraVENo aborted 20 mg, Bon ne 40 MG/ML ne (PF) 09:00:00 AM us Int Am[facility] Injectable (SOLU-MEDROL) EST ENous , [place] Solution injection 20 mg DAILY , Health methylPREDNISolo 3 Sys tem ne (PF) doses, Inc (SOLU-MEDROL) First injection 20 mg dose (after last modifi cation ) on Sat 0 at 0900, Last dose on Sat 0 at 0900 Medication administered onsite Methylprednisolone methylPREDNISolone, 05/05/2019 40 IntraVENous active 1 mL by Bon 40 MG/ML Injectable PF, (SOLU-MEDROL) 40 12:00:00 AM mg IntraVENous [facility] Solution mg/mL solution EST route every [place] methylPREDNISolone, twelv e (12) Health PF, (SOLU-MEDROL) 40 hour s for 7 System mg/mL solution days. Inc Metoprolol Tartrate metoprolol tartrate 05/05/2019 25 Per J Tube active 1 Tab by Per Bon 25 MG Oral Tablet (LOPRESSOR) 25 mg 12:00:00 AM mg J Tube route [facility] metoprolol tartrate tablet EST two (2) [place] (LOPRESSOR) 25 mg times a day Health tablet for 30 days. Syste m Inc vancomycin 50 mg/mL 05/05/2019 125 Per G Tube active 2.5 mL by Bon oral solution 12:00:00 AM mg Per G Tube [facility] (compounded) EST route every [place] six (6) Health hours for 7 System days. Inc meropenem 500 mg 05/05/2019 500 IntraVENous active 500 mg by Bon IVPB 12:00:00 AM mg IntraVENous S [facility]ours EST route every [place] twelve (12) Health hours every System twelve (12) Inc hours for 7 days. meropenem (MERREM) 05/04/2019 0.5 IntraVENous active 500 mg (0.5 Bon 500 mg in 0.9% 10:00:00 PM g g), [facility] sodium chloride EST IntraVENo us, [place] (MBP/ADV) 50 mL MBP EVERY 12 Health HOURS, First System dose (after Inc last modification ) on Sat05/04/19 at 2200, Until Discontinued , at 100 mL/hr Medication administered onsite meropenem 05/04/2019 0.5 g IntraVENous completed 500 mg (0.5 Bon (MERREM) 12:00:00 PM g), Sec[facility] urs 500 mg in EST IntraVENous, Ch arity 0.9% sodium ONCE, 1 dose, Health chloride 05/04/19 at S ystem (MBP/ADV) 1200, at 100 In c 50 mL MBP mL/hr Medication administered onsite Metoprolol metoprolol 05/02/2019 25 Per J active 25 mg, Per J Bon Tartrate 25 tartrate 09:00:00 PM mg Tube Tu be, 2 TIMES [facility] MG Oral (LOPRESSOR) EST DAILY, Fir st [place] Tablet tablet 25 mg dose on t Health metoprolol 05/02/19 at s tem tartrate 2100, Until Inc (LOPRESSOR) Discontinued tablet 25 mg Medication administered onsite Metoprolol metoprolol 05/02/2019 5 IntraVENous active 5 mg, Bon Tartrate 1 (LOPRESSOR) 03:02:58 PM mg IntraVENous, [facility] MG/ML injection 5 EST EVERY 6 HOUR S [place] Injectable mg NEEDED, Hea lth Solution Starting Sat [facility] metoprolol 05/02/19 at Inc (LOPRESSOR) 1502, Until injection 5 Discontinued, mg For SBP>150mm hg , hold for HR<55 Medication administered onsite 1 ML LORazepam 05/01/2019 1 mg IntraVENous aborted 1 mg, Bon Lorazepam 2 (ATIVAN) 11:00:00 PM In traVENous, [facility] MG/ML injection 1 EST EVERY Charit y Injection mg BEDTIME, 7 Heal th LORazepam doses, First Sy stem (ATIVAN) dose on Sat Inc injection 1 05/01/19 at mg 2300, Last dose on Caro 05/07/19 at 2200 Medication administered onsite enalaprilat [id number] 05/01/2019 1.25 IntraVENous aborted 1.25 mg, Bon (VASOTEC) 06:00:00 PM mg IntraVEN ous, [facility] injection EST EVERY 6 [place] 1.25 mg HOURS, First Heal th dose on Fri System 05/01/19 at Inc 1800, Until Discontinued Medication administered onsite Potassium potassium 05/01/2019 10 IntraVENous completed 10 mEq, Bon Chloride 0.1 chloride 06:00:00 PM meq I ntraVENous, [facility] MEQ/ML 10 mEq in EST EVERY 1 HOUR, [place] Injectable 100 ml 3 doses, Hea lth Solution IVPB First dose on Sy stem potassium 05/01/20 Inc chloride 10 at 1800, Last mEq in 100 dose on Fri ml IVPB 05/01/19 at 2000, at 100 mL/hr Medication administered onsite Hydromorphone HYDROmorphone 05/01/2019 0.5 IntraVENous comp leted 0.5 mg, Bon Hydrochloride (PF) 03:49:19 PM mg Intr aVENous, [facility] 1 MG/ML (DILAUDID) EST EVERY 3 TAMMY RS [place] Injectable injection 0.5 NE EDED, Health Solution mg Starting Sat Sys tem HYDROmorphone 05/01/19 at Inc (PF) 1549, Until (DILAUDID) 05/02/19 injection 0.5 at 1548, mg BREAKTHROUGH PAIN Medication administered onsite diatrizoate tiffani-diatrizoat [id number] 04/29/2019 30 compl eted 30 mL, Bon sod 09:00:00 AM mL InterCATHeter , [facility] (-GASTROVIEW,GASTROGRAFIN) EST RAD ONCE, 1 [place] 66-10 % contrast solution 30 dose, Wed Health mL 04/29/19 at 0900 Syst em Inc Medication administered onsite Methylprednisolone methylPREDNISolone 04/28/2019 40 IntraVENous aborted 40 mg, Bon 40 MG/ML Injectable (PF) (SOLU-MEDROL) 09:00:00 PM mg IntraVENous, [facility] Solution injection 40 mg EST EVERY 12 [place] methylPREDNISolone HOURS, First Health (PF) (SOLU-MEDROL) dose ( after System injection 40 mg last Inc modification) on Sat04/28/19 at 2100, Until Discontinued Medication administered onsite Bacitracin bacitracin 04/28/2019 1 Topical aborted 1 Packet, Bon 0.5 UNT/MG 500 06:00:00 PM {packet} Top ical, 3 [facility] Topical unit/gram EST TIMES DAILY, [place] Ointment packet 1 First dose o n Health bacitracin Packet Sat04/28/19 System 500 at 1800, Inc unit/gram Until packet 1 Discontinued Packet Medication administered onsite furosemide [id number] 04/28/2019 20 IntraVENous aborted 20 mg, Bon (LASIX) 10:00:00 AM mg IntraVENou s, [facility] injection 20 EST 2 TIMES Daniela ity mg DAILY, First Health dose on Sat System 04/28/19 at Inc 1000, Until Discontinued Medication administered onsite vits A and [id number] 04/28/2019 Topical active Topical, Bon D-white 09:14:06 AM NEEDED, Se cours pet-lanolin EST Starting Tue [place] (A&D) 04/28/19 at Health ointment 0914, Until Syst em Discontinued, Inc Skin Irritation Medication administered onsite lamotrigine lamoTRIgine 04/26/2019 100 Per G active 100 mg, Per G Bon 100 MG Oral (LaMICtal) 06:00:00 PM mg Tube Tube, EVERY [facility] Tablet tablet 100 mg EST EVENING, First [place] lamoTRIgine dose (after H ealth (LaMICtal) last System tablet 100 mg modificatio n) Inc on 04/26/19 at 1800, Until Discontinued Medication administered onsite Methylprednisolone methylPREDNISolone 04/26/2019 40 IntraVENous aborted 40 mg, Bon 40 MG/ML Injectable (PF) (SOLU-MEDROL) 03:00:00 PM mg IntraVENous, [facility] Solution injection 40 mg EST EVERY 8 [place] methylPREDNISolone HOURS, First Health (PF) (SOLU-MEDROL) dose o n Sun System injection 40 mg 04/26/19 a t Inc 1500, Until Discontinued Medication administered onsite vancomycin 50 04/26/2019 125 mg Per G active 125 mg, Per Bon mg/mL oral 12:00:00 PM Tube G Tube, [facility] solution EST EVERY 6 [place] (compounded) 125 HOURS, 7 6 Health mg doses, System Inc First dose on 04/26/19 at 1200, Last dose on Sat05/15/19 at 0600 Medication administered onsite meropenem 04/26/2019 0.5 g IntraVENous aborted 500 mg (0.5 g), Bon (MERREM) 500 10:00:00 AM Intra VENous, [facility] mg in 0.9% EST EVERY 12 HOURS , [place] sodium First dose on Heal th chloride 04/26/19 at S ystem (MBP/ADV) 50 1000, Until Inc mL MBP Discontinued, at 16.7 mL/hr Medication administered onsite lamotrigine lamoTRIgine 04/26/2019 50 Per G active 50 mg, Per G Bon 25 MG Oral (LaMICtal) 09:00:00 AM mg Tube T ube, DAILY, [facility] Tablet tablet 50 mg EST First dose [place] lamoTRIgine (after last H ealth (LaMICtal) modification) System tablet 50 mg on Sun Inc at 0900, Until Discontinued Medication administered onsite pantoprazole 04/26/2019 40 IntraVENous active 40 mg, Bon (PROTONIX) 40 09:00:00 AM mg Intr aVENous, [facility] mg in 0.9% EST DAILY, First C harity sodium chloride dose on S un Health 10 mL injection 04/26/19 a t System 0900, Until Inc Discontinued Medication administered onsite propofol [id number] 04/26/2019 IntraVENous aborted 0-50 Bon (DIPRIVAN) 12:00:00 AM mcg/kg/min [facility] 10 mg/mL EST [place] infusion 55.5 kg Health (0-16.65 System mL/hr, Inc rounded to 0-16.7 mL/hr), at 0-16.7 mL/hr, IntraVENous, TITRATE, Starting 04/26/19 at 0000, Until Sat04/28/19 at 1347 Medication administered onsite Lorazepam 1 LORazepam 04/25/2019 1 mg Per G aborted 1 mg, Per G Bon MG Oral (ATIVAN) 10:00:00 PM Tube Tube, EVERY [facility] Tablet tablet 1 mg EST BEDTIME, 7 [place] LORazepam doses, First He alth (ATIVAN) dose (after Syst em tablet 1 mg last Inc modification) on 04/25/19 at 2200, Last dose on Sat05/01/19 at 2200 Medication administered onsite sodium 31147-195-04 04/25/2019 IntraVENous aborted 5-40 mL, Bon chloride 10:00:00 PM IntraVENo us, [facility] (NS) flush EST EVERY 8 Charit y 5-40 mL HOURS, First Heal th dose on Sat System 04/25/19 at Inc 2200, Until Discontinued Medication administered onsite dextrose 5 [id number] 04/25/2019 50 IntraVENous aborted 50 mL/hr, at Bon % - 0.45% 07:00:00 PM mL/h 50 mL/hr , [facility] NaCl EST IntraVENous, [place] infusion CONTINUOUS, Heal th Starting Sat System 04/25/19 at Inc 1900, Until Sat04/28/19 at 0943 Medication administered onsite ondansetron [id number] 04/25/2019 4 IntraVENous active 4 mg, Bon (ZOFRAN) 06:51:01 PM mg IntraVENo us, [facility] injection 4 EST EVERY 6 HOURS [place] mg NEEDED, Health Starting Sat System 04/25/19 at Inc 1851, Until Discontinued, Nausea or Vomiting Medication administered onsite Acetaminophen 325 MG / HYDROcodone-acetaminophen 04/25/2019 1 Oral completed 1 Tab, Bon Hydrocodone Bitartrate 5 (NORCO) 5-325 mg per 06:49:57 PM {tbl} Oral, [facility] MG Oral Tablet tablet 1 Tab EST EV JAMES 4 [place] HYDROcodone-acetaminophen HOURS Health (NORCO) 5-325 mg per NEED ED, System tablet 1 Tab Starting Inc 04/25/19 at 1849, Until 04/28/19 at 1848, Moderate Pain Medication administered onsite Acetaminophen acetaminophen 04/25/2019 650 Oral active 650 mg, Oral, Bon 325 MG Oral (TYLENOL) 06:49:44 PM mg E VERY 6 HOURS [facility] Tablet tablet 650 mg EST NEEDED , [place] acetaminophen Starting [facility] (TYLENOL) 04/25/19 at Syst em tablet 650 mg 1849, Until Inc Discontinued, Mild Pain Medication administered onsite sodium [id number] 04/25/2019 IntraVENous active 5-40 mL, Bon chloride 06:43:31 PM IntraVENo us, [facility] (NS) flush EST NEEDED, Maggy rity 5-40 mL Starting Sat Heal th 04/25/19 at System 1843, Until Inc Discontinued, Line Patency Medication administered onsite lamotrigine lamoTRIgine 04/25/2019 100 Oral aborted 100 mg, Oral, Bon 100 MG Oral (LaMICtal) 06:00:00 PM mg EVERY [facility] Tablet tablet 100 mg EST EVENING, [place] lamoTRIgine First dose on Health (LaMICtal) 04/25/19 Sy stem tablet 100 mg at 1800, In c Until Discontinued Medication administered onsite potassium [id number] 04/25/2019 40 Per G completed 40 mEq, Bon chloride 04:00:00 PM meq Tube Per G Sec ours (KLOR-CON) EST Tube, [place] packet for NOW, 1 Health solution 40 dose, Sat Sys tem mEq 04/25/19 Inc at 1600 Medication administered onsite potassium 04/24/2019 IntraVENous completed at 63.8 mL/hr Bon phosphate 15 12:00:00 PM Admin ister [facility] mmol in 0.9% EST over 4 Hours , [place] sodium ONCE, 1 dose, [facility] th chloride 250 04/24/19 System Inc mL infusion at 1200 Medication administered onsite 1 ML LORazepam 04/23/2019 1 IntraMUSCular completed 1 mg, Bon Lorazepam (ATIVAN) 09:00:00 PM mg Intr aMUSCular, [facility] 2 MG/ML injection EST ONCE, 1 dose , [place] Injection 1 mg Caro 04/23/19 at H ealth LORazepam 2100 System (ATIVAN) Inc injection 1 mg Medication administered onsite furosemide [id number] 04/22/2019 20 IntraVENous complete d 20 mg, Bon (LASIX) 07:00:00 PM mg IntraVENou s, [facility] injection EST ONCE, 1 dose, C harity 20 mg 04/22/19 at Healt h 1900 System Inc Medication administered onsite Acetylcysteine acetylcysteine 04/22/2019 4 Inhalation active 400 mg (4 mL), Bon 100 MG/ML (MUCOMYST) 100 02:00:00 PM mL Inhalation, 3 TIMES [facility] Inhalant mg/mL (10 %) EST DAILY RE SP, First [place] Solution nebulizer dose (after last Health acetylcysteine solution 400 mg modification) on Wed System (MUCOMYST) 100 04/22/19 at 1400, Until Inc mg/mL (10 %) Discontinued
MODE nebulizer OF DELIVERY: solution 400 mg Nebulizer Medication administered onsite Albuterol 0.833 MG/ML albuterol-ipratropium 04/22/2019 3 Nebu lization active 3 mL, Nebulization, Bon / Ipratropium [place] (DUO-NEB) 2.5 MG-0.5 02:00:00 PM mL EVERY 6 HOURS WHILE [facility] 0.167 MG/ML Inhalant MG/3 ML EST A WAKE RESP, First [place] Solution dose (after last Health albuterol-ipratropium mod ification) on Sat System (DUO-NEB) 2.5 MG-0.5 at 1400, Until Inc MG/3 ML Discontinued
M ODE OF DELIVERY: Nebulizer Medication administered onsite Miconazole miconazole 04/21/2019 Topical active Topical, 2 Bon Nitrate 20 (MICOTIN) 2 06:00:00 PM TIMES DAILY, [facility] MG/ML % cream EST First dose on Ch arity Topical Tue 04/21/19 at [facility] Cream 1800, Until System miconazole Discontinued I nc (MICOTIN) 2 % cream Medication administered onsite alteplase 04/21/2019 2 mg completed 2 mg , Bon (CATHFLO) 2 mg 04:00:00 AM Int erCATHeter, [facility] in sterile water EST ONCE, 1 dose, Tue [place] (preservative 04/21/19 at 0 400 Health free) 2 mL System In c injection Medication administered onsite alteplase 04/21/2019 2 mg completed 2 mg , Bon (CATHFLO) 2 mg 04:00:00 AM Int erCATHeter, [facility] in sterile water EST ONCE, 1 dose, Tue [place] (preservative 04/21/19 at 0 400 Health free) 2 mL System In c injection Medication administered onsite vancomycin 04/20/2019 1000 IntraVENous aborted 1,000 mg, Bon (VANCOCIN) 01:20:00 PM mg IntraVE Nous, [facility] 1,000 mg in EST EVERY 12 HOUR S, [place] 0.9% sodium First dose on Health chloride 250 04/20/19 a t System mL IVPB 1320, Until Inc Discontinued, at 125 mL/hr Medication administered onsite pantoprazole 04/20/2019 40 IntraVENous aborted 40 mg, Bon (PROTONIX) 40 09:00:00 AM mg Intr aVENous, [facility] mg in 0.9% EST DAILY, First C harity sodium dose on Mon Health chloride 10 mL 04/20/19 at System injection 0900, Until Inc Discontinued Medication administered onsite cinacalcet cinacalcet 04/20/2019 60 Oral active 60 mg, Oral, Bon 30 MG Oral (SENSIPAR) 09:00:00 AM mg D AILY, First [facility] Tablet tablet 60 mg EST dose on Mo n [place] cinacalcet 04/20/19 at Heal th (SENSIPAR) 0900, Until Sy stem tablet 60 mg Discontinued Inc Medication administered onsite Acetaminophen acetaminophen 04/20/2019 650 Oral aborted 650 mg, Bon 325 MG Oral (TYLENOL) 08:37:20 AM mg O ral, [facility] Tablet tablet 650 mg EST EVERY 4 C harity acetaminophen HOURS He alth (TYLENOL) NEEDED, System tablet 650 mg Starting In c 04/20/19 at 0837, Until 04/25/19 at 1924, Mild Pain, Fever Medication administered onsite Alprazolam ALPRAZolam 04/19/2019 0.5 Per G aborted 0.5 mg, Bon 0.5 MG Oral (XANAX) 10:00:00 PM mg Tube Per G [facility] Tablet tablet 0.5 EST Tube, Charit y ALPRAZolam mg EVERY Health (XANAX) BEDTIME, 7 System tablet 0.5 mg doses, Inc First dose on 04/19/19 at 2200, Last dose on 04/25/19 at 2200 Medication administered onsite piperacillin-tazobactam 04/19/2019 3.375 IntraVENous ab orted 3.375 g, Bon (ZOSYN) 3.375 g in 0.9% 09:19:00 PM g IntraVENous, [facility] sodium chloride EST EVERY 8 C harity (MBP/ADV) 100 mL MBP HOUR S, 21 Health doses, First System dose (after Inc last reorder) on 04/19/19 at 2120, Last dose on 04/26/19 at 1500, at 25 mL/hr Medication administered onsite lamotrigine lamoTRIgine 04/19/2019 50 Per G aborted 50 mg, Per G Bon 25 MG Oral (LaMICtal) 09:00:00 PM mg Tube T ube, EVERY [facility] Tablet tablet 50 mg EST 12 HOURS, [place] lamoTRIgine First dose on [facility] (LaMICtal) 04/19/19 at System tablet 50 mg 2100, Until Inc Discontinued Medication administered onsite Budesonide budesonide 04/19/2019 500 Nebulization active 500 mcg, Bon 0.25 MG/ML (PULMICORT) 08:00:00 PM ug Nebulization, 2 TIMES [facility] Inhalant 500 mcg/2 ml EST DAILY RE SP, First [place] Solution nebulizer dose on 04/19/19 at [facility] budesonide suspension 2000, Un til System (PULMICORT) Discontinued< br>MODE Inc 500 mcg/2 ml OF DELIVERY: nebulizer Nebulizer suspension Medication administered onsite piperacillin-tazobactam 04/19/2019 3.375 IntraVENous ab orted 3.375 g, Bon (ZOSYN) 3.375 g in 0.9% 07:59:00 PM g IntraVENous, [facility] sodium chloride EST EVERY 8 H OURS, [place] (MBP/ADV) 100 mL MBP Firs t dose on Health 04/19/19 at System 1959, Until Inc Discontinued, at 200 mL/hr Medication administered onsite Acetylcysteine acetylcysteine 04/19/2019 4 Inhalation aborted 400 mg (4 mL), Bon 100 MG/ML (MUCOMYST) 100 06:44:00 PM mL Inhalation, 2 TIMES [facility] Inhalant mg/mL (10 %) EST DAILY, F irst dose on [place] Solution nebulizer 04/19/19 at 1844, Health acetylcysteine solution 400 mg Until System (MUCOMYST) 100 Discontinu ed
MODE Inc mg/mL (10 %) OF DELIVERY: nebulizer Nebulizer solution 400 mg Medication administered onsite dextrose 5 1659-5326-50 04/19/2019 100 IntraVENous aborted 100 mL/hr, at Bon % - 0.45% 05:48:00 PM mL/h 100 mL/h r, [facility] NaCl EST IntraVENous, [place] infusion CONTINUOUS, Heal th Starting Sun System 04/19/19 at Inc 1749, Until [place] 04/26/19 at 1603 Medication administered onsite 1 ML heparin 04/19/2019 5000 SubCUTAneous active 5 ,000 Units, Bon heparin (porcine) 05:47:00 PM U SubCU TAneous, [facility] sodium, injection EST EVERY 12 Maggy rity porcine 5,000 Units HOURS, Fir [facility] Health 5000 UNT/ML dose on [place] S ystem Injection 04/19/19 at [facility] heparin 1747, Until (porcine) Discontinued injection 5,000 Units Medication administered onsite Albuterol 0.833 MG/ML albuterol-ipratropium 04/19/2019 3 N ebulization aborted 3 mL, Nebulization, Bon / Ipratropium [place] (DUO-NEB) 2.5 MG-0.5 04:00:00 PM mL EVERY 4 HOURS RESP, [facility] 0.167 MG/ML Inhalant MG/3 ML EST F irst dose on Sun [place] Solution 04/19/19 at 1600, Until [facility] albuterol-ipratropium Dis continued
MODE System (DUO-NEB) 2.5 MG-0.5 OF D ELIVERY: Inc MG/3 ML Nebulizer Medication administered onsite vancomycin 04/19/2019 1000 IntraVENous completed 1,000 mg, Bon (VANCOCIN) 11:28:00 AM mg IntraVE Nous, [facility] 1,000 mg in EST NOW, 1 dose, [place] 0.9% sodium 04/19/19 at [facility] chloride 250 1129, at 125 System mL IVPB mL/hr Inc Medication administered onsite Albuterol 0.833 MG/ML albuterol-ipratropium 04/19/2019 3 N ebulization completed 3 mL, Bon / Ipratropium [place] (DUO-NEB) 2.5 MG-0.5 11:26:00 AM mL Nebulization, [facility] 0.167 MG/ML Inhalant MG/3 ML EST N OW, 1 dose, [place] Solution 04/19/19 at alth albuterol-ipratropium 112 6
MODE System (DUO-NEB) 2.5 MG-0.5 OF D ELIVERY: Inc MG/3 ML IPPB Medication administered onsite methylPREDNISolone [id number] 04/19/2019 125 IntraVENous comple mikel 125 mg, Bon (PF) (Solu-MEDROL) 11:25:00 AM mg IntraVENous, [facility] injection 125 mg EST NOW, 1 d ose, [place] 04/19/19 at [facility] 1126 System Inc Medication administered onsite sodium 3392-4328-67 04/19/2019 1000 IntraVENous completed 1,000 mL, at Bon chloride 09:52:00 AM mL 1,000 mL/ hr, [facility] 0.9 % EST Administer [place] bolus over 60 Health infusion Minutes, System 1,000 mL IntraVENous, Inc 1 dose Medication administered onsite piperacillin-tazobactam 04/19/2019 3.375 IntraVENous co mpleted 3.375 g, Bon (ZOSYN) 3.375 g in 0.9% 09:52:00 AM g IntraVENous, [facility] sodium chloride EST NOW, 1 do se, [place] (MBP/ADV) 100 mL MBP 04/19/19 at [facility] 0952, at 200 System mL/hr Inc Medication administered onsite Bisacodyl 10 bisacodyl 04/06/2019 10 Rectal aborted 10 mg, Bon MG Rectal (DULCOLAX) 11:32:10 AM mg Re ctal, DAILY [facility] Suppository suppository EST PRN, S tarting [place] bisacodyl 10 mg 04/06/19 H ealth (DULCOLAX) at 1132, Syste m suppository Until Mon Inc 10 mg 04/06/19 at 2242, Constipation Medication administered onsite Magnesium magnesium 04/06/2019 30 Oral aborted 3 0 mL, Oral, Bon Hydroxide 80 hydroxide 11:31:08 AM mL DAILY PRN, [facility] MG/ML Oral (MILK OF EST Starting M on [place] Suspension MAGNESIA) 04/06/19 at [facility] magnesium 400 mg/5 mL 1131, Un til System hydroxide oral Mon 04/06/19 In c (MILK OF suspension at 2242, MAGNESIA) 30 mL Constipation 400 mg/5 mL oral suspension 30 mL Medication administered onsite omeprazole 04/06/2019 40 mg Oral active Take 20 mL by Bon (PRILOSEC) 2 12:00:00 AM mouth daily. [facility] mg/mL susp 2 EST [place] mg/mL oral Health suspension System (compounded) Inc potassium, 541 04/05/2019 1 Per G aborted 1 Pa cket, Per G Bon sodium 62- 09:00:00 AM {pack Tube Tube, KYLEIGH Y, [facility] phosphates 161 EST et} First dose Maggy rity (NEUTRA-PHOS) 00 (after last Health packet 1 Packet modificat ion) System on 04/05/19 Inc at 0900, Until Discontinued Medication administered onsite diatrizoate tiffani-diatrizoat [id number] 04/04/2019 30 Oral compl eted 30 mL, Bon sod 09:00:00 PM mL Oral, RAD Sec [facility] (-GASTROVIEW,GASTROGRAFIN) EST ONCE, 1 [place] 66-10 % contrast solution 30 dose, Sat Health mL 04/04/19 System at 2100 Inc Medication administered onsite Petrolatum 1 white 04/03/2019 Topical aborted Topical, Bon MG/MG petrolatum 09:00:00 AM DAILY, First [facility] Topical (VASELINE) EST dose on Fri [place] Ointment ointment 04/03/19 at [facility] white 0900, Until System petrolatum Discontinued I nc (VASELINE) ointment Medication administered onsite Methylprednisolone methylPREDNISolone 04/02/2019 20 IntraVENous aborted 20 mg, Bon 40 MG/ML Injectable (PF) (SOLU-MEDROL) 09:00:00 PM mg IntraVENous, [facility] Solution injection 20 mg EST EVERY 12 [place] methylPREDNISolone HOURS, First [facility] (PF) (SOLU-MEDROL) dose ( after System injection 20 mg last Inc modification) on Sat04/02/19 at 2100, Until Discontinued Medication administered onsite potassium, [id number] 04/02/2019 2 Per G aborted 2 Packet, Per Bon sodium 06:00:00 PM {packet} Tube G Tube, 2 [facility] phosphates EST TIMES DAILY, C harity (NEUTRA-PHOS) First dose Health packet 2 (after last Syst em Packet modification) Inc on Sat04/02/19 at 1800, Until Discontinued Medication administered onsite 0.45% [id number] 04/01/2019 50 IntraVENous aborted 50 mL/hr, at Bon sodium 11:00:00 AM mL/h 50 mL/hr, S ecours chloride EST IntraVENous, Maggy rity infusion CONTINUOUS, Heal Starting Sat System 04/01/19 at Inc 1100, Until 04/04/19 at 1834 Medication administered onsite dextrose 5 5937-1380-54 03/31/2019 50 IntraVENous aborted 50 mL/hr, at Bon % - 0.45% 10:00:00 AM mL/h 50 mL/hr , [facility] NaCl EST IntraVENous, [place] infusion CONTINUOUS, Heal Starting Sat System 03/31/19 at Inc 1000, Until Sat04/01/19 at 1054 Medication administered onsite Methylprednisolone methylPREDNISolone 03/31/2019 40 IntraVENous aborted 40 mg, Bon 40 MG/ML Injectable (PF) (SOLU-MEDROL) 06:00:00 AM mg IntraVENous, [facility] Solution injection 40 mg EST EVERY 8 HOURS, [place] methylPREDNISolone First dose Health (PF) (SOLU-MEDROL) (after last System injection 40 mg modificat ion) Inc on Sat03/31/19 at 0600, Until Discontinued Medication administered onsite Acetylcysteine acetylcysteine 03/27/2019 4 Inhalation aborted 400 mg (4 mL), Bon 100 MG/ML (MUCOMYST) 100 08:00:00 PM mL Inhalation, 2 TIMES [facility] Inhalant mg/mL (10 %) EST DAILY RE SP, First [place] Solution nebulizer dose (after last Health acetylcysteine solution 400 mg modification) on Sat System (MUCOMYST) 100 03/27/19 a t 2000, Inc mg/mL (10 %) Until nebulizer Discontinued
MODE solution 400 mg OF DELIVE RY: Nebulizer Medication administered onsite potassium, [id number] 03/27/2019 2 Per G completed 2 Packet, Bon sodium 11:00:00 AM {packet} Tube Per G S ecours phosphates EST Tube, 2 Charit y (NEUTRA-PHOS) TIMES Healt h packet 2 Packet DAILY, 6 System doses, Inc First dose on Sat03/27/19 at 1100, Last dose on Sat03/29/19 at 1800 Medication administered onsite dextrose [id number] 03/26/2019 50 IntraVENous aborted 50 mL/hr, at Bon 5% and 12:00:00 PM mL/h 50 mL/hr, S ecours 0.9% NaCl EST IntraVENous, Ch arity infusion CONTINUOUS, Heal th Starting [place] System 03/26/19 at Inc 1200, Until Sat03/27/19 at 1154 Medication administered onsite vancomycin 03/25/2019 1000 IntraVENous completed 1,000 mg, Bon (VANCOCIN) 09:00:00 PM mg IntraVE Nous, [facility] 1,000 mg in EST EVERY 12 Daniela ity 0.9% sodium HOURS, 14 Hea lth chloride 250 doses, First System mL IVPB dose on Sat Inc 03/25/19 at 2100, Last dose on Sat04/01/19 at 0900, at 125 mL/hr Medication administered onsite Acetylcysteine acetylcysteine 03/25/2019 4 Inhalation aborted 400 mg (4 mL), Bon 100 MG/ML (MUCOMYST) 100 08:00:00 PM mL Inhalation, EVERY 6 [facility] Inhalant mg/mL (10 %) EST HOURS RE SP, First [place] Solution nebulizer dose (after last Health acetylcysteine solution 400 mg modification) on Sat System (MUCOMYST) 100 03/25/19 a t 2000, Inc mg/mL (10 %) Until nebulizer Discontinued
MODE solution 400 mg OF DELIVE RY: Nebulizer Medication administered onsite Albuterol 0.833 MG/ML albuterol-ipratropium 03/25/2019 3 N ebulization aborted 3 mL, Nebulization, Bon / Ipratropium [place] (DUO-NEB) 2.5 MG-0.5 08:00:00 PM mL EVERY 6 HOURS RESP, [facility] 0.167 MG/ML Inhalant MG/3 ML EST F irst dose (after [place] Solution last modificatio n) on Health albuterol-ipratropium [facility] 03/25/19 at 2000, System (DUO-NEB) 2.5 MG-0.5 Unti l Inc MG/3 ML Discontinued
M ODE OF DELIVERY: Nebulizer Medication administered onsite Budesonide budesonide 03/25/2019 500 Nebulization aborted 500 mcg, Bon 0.25 MG/ML (PULMICORT) 08:00:00 PM ug Nebulization, 2 TIMES [facility] Inhalant 500 mcg/2 ml EST DAILY RE SP, First [place] Solution nebulizer dose (after last Health budesonide suspension modifica tion) on Sat System (PULMICORT) 03/25/19 at 2 000, Inc 500 mcg/2 ml Until nebulizer Discontinued
MODE suspension OF DELIVERY: Nebulizer Medication administered onsite Alprazolam ALPRAZolam 03/25/2019 0.25 Per G aborted 0.25 mg, Per G Bon 0.25 MG Oral (XANAX) 06:00:00 PM mg Tube Tu be, EVERY [facility] Tablet tablet 0.25 EST EVENING, 19 [place] ALPRAZolam mg doses, First H ealth (XANAX) dose (after Syste m tablet 0.25 last Inc mg modification) on Sat03/25/19 at 1800, Last dose on Sat04/12/19 at 1800 Medication administered onsite cefepime 03/25/2019 1 g IntraVENous completed 1 g, Bon (MAXIPIME) 1 03:00:00 PM Intra VENous, [facility] g in 0.9% EST EVERY 8 HOURS, [place] sodium 21 doses, First He alth chloride dose (after Syst em (MBP/ADV) 50 last Inc mL MBP modification) on Sat03/25/19 at 1500, Last dose on Sat04/01/19 at 0700, at 100 mL/hr Medication administered onsite multivit-folic [id number] 03/25/2019 30 Per G aborted 30 mL, Per G Bon acid-herbal 275 09:55:00 AM mL Tube Tu be, DAILY, [facility] (WELLESSE PLUS) EST First dos e on [place] oral liquid 30 Sat Health mL at 0955, Until Syste m Discontinued Inc Medication administered onsite lamotrigine lamoTRIgine 03/25/2019 50 Per G aborted 50 mg, Per G Bon 25 MG Oral (LaMICtal) 09:00:00 AM mg Tube T ube, 2 TIMES [facility] Tablet tablet 50 mg EST DAILY, Fir st [place] lamoTRIgine dose on Sat H ealth (LaMICtal) 03/25/19 at Sy stem tablet 50 mg 0900, Until Inc Discontinued Medication administered onsite Budesonide budesonide 03/25/2019 500 Nebulization aborted 500 mcg, Bon 0.25 MG/ML (PULMICORT) 09:00:00 AM ug Nebulization, 2 TIMES [facility] Inhalant 500 mcg/2 ml EST DAILY, F irst dose on [place] Solution nebulizer Sat 9 at 0900, Health budesonide suspension Until Sy stem (PULMICORT) Discontinued< br>MODE Inc 500 mcg/2 ml OF DELIVERY: nebulizer Nebulizer suspension Medication administered onsite cinacalcet cinacalcet 03/25/2019 60 Oral aborted 60 mg, Oral, Bon 30 MG Oral (SENSIPAR) 09:00:00 AM mg D AILY, First [facility] Tablet tablet 60 mg EST dose on d [place] cinacalcet 03/25/19 at He alth (SENSIPAR) 0900, Until Sy stem tablet 60 mg Discontinued Inc Medication administered onsite Valproic valproic 03/25/2019 750 Per G aborted 75 0 mg, Per G Bon Acid 50 acid (as 09:00:00 AM mg Tube Tube, EVERY [facility] MG/ML Oral sodium salt) EST 12 TAMMY RS, [place] Solution (DEPAKENE) First dose on Health valproic 250 mg/5 mL 03/25 System acid (as (5 mL) oral at 0900, Inc sodium salt) solution 750 Unti l (DEPAKENE) mg Discontinued 250 mg/5 mL (5 mL) oral solution 750 mg Medication administered onsite Albuterol 0.833 MG/ML albuterol-ipratropium 03/25/2019 3 N ebulization aborted 3 mL, Nebulization, Bon / Ipratropium [place] (DUO-NEB) 2.5 MG-0.5 08:00:00 AM mL EVERY 4 HOURS RESP, [facility] 0.167 MG/ML Inhalant MG/3 ML EST F irst dose on Sat [place] Solution 03/25/19 at 0800 , Health albuterol-ipratropium Unt il System (DUO-NEB) 2.5 MG-0.5 Disc ontinued
MODE Inc MG/3 ML OF DELIVERY: Nebulizer Medication administered onsite 0.9% [id number] 03/25/2019 70 IntraVENous aborted 70 mL/hr, at Bon sodium 07:32:00 AM mL/h 70 mL/hr, S ecours chloride EST IntraVENous, Maggy rity infusion CONTINUOUS, Heal th Starting Wed System 03/25/19 at Inc 0732, Until [place] 03/26/19 at 1125 Medication administered onsite Methylprednisolone methylPREDNISolone 03/25/2019 40 IntraVENous aborted 40 mg, Bon 40 MG/ML Injectable (PF) (SOLU-MEDROL) 07:29:00 AM mg IntraVENous, [facility] Solution injection 40 mg EST EVERY 6 [place] methylPREDNISolone HOURS, First [facility] (PF) (SOLU-MEDROL) dose o n Sat System injection 40 mg 03/25/19 at Inc 0729, Until Discontinued Medication administered onsite 1 ML heparin 03/25/2019 5000 SubCUTAneous aborted 5,000 Units, Bon heparin (porcine) 07:25:00 AM U SubCU TAneous, [facility] sodium, injection EST EVERY 12 Maggy rity porcine 5,000 HOURS, First Hea lth 5000 UNT/ML Units dose on Sat System Injection 03/25/19 at Inc heparin 0725, Until (porcine) Discontinued injection 5,000 Units Medication administered onsite Acetaminophen acetaminophen 03/25/2019 650 Per G aborted 650 mg, Bon 32 MG/ML Oral (TYLENOL) 07:17:04 AM mg Tube Per G [facility] Solution solution 650 mg EST Tube, [place] acetaminophen EVERY 4 Hea lth (TYLENOL) HOURS System solution 650 mg NEEDED, I nc Starting Sat03/25/19 at 0717, Until 04/06/19 at 2242, Fever Medication administered onsite vancomycin 03/25/2019 1000 IntraVENous completed 1,000 mg, Bon (VANCOCIN) 07:16:00 AM mg IntraVE Nous, [facility] 1,000 mg in EST ONCE, 1 dose, [place] 0.9% sodium Sat03/25/19 Health chloride 250 at 0717, at System mL IVPB 125 mL/hr Inc Medication administered onsite cefepime 03/25/2019 1 g IntraVENous completed 1 g, Bon (MAXIPIME) 1 05:53:00 AM Intra VENous, [facility] g in 0.9% EST ONCE, 1 dose, C harity sodium Sat03/25/19 Healt h chloride at 0553, at Syst em (MBP/ADV) 50 100 mL/hr In c mL MBP Medication administered onsite sodium [id number] 03/25/2019 1000 IntraVENous completed 1,000 mL, at Bon chloride 02:43:00 AM mL 1,000 mL/ hr, [facility] 0.9 % EST Administer [place] bolus over 60 Health infusion Minutes, System 1,000 mL IntraVENous, Inc 1 dose Medication administered onsite sodium [id number] 03/25/2019 1000 IntraVENous completed 1,000 mL, at Bon chloride 02:43:00 AM mL 1,000 mL/ hr, [facility] 0.9 % EST Administer [place] bolus over 60 Health infusion Minutes, System 1,000 mL IntraVENous, Inc 1 dose Medication administered onsite sodium 63507-131-12 03/25/2019 IntraVENous aborted 5-10 mL, Bon chloride 02:41:36 AM IntraVENo us, [facility] (NS) flush EST NEEDED, Maggy rity 5-10 mL Starting Sat03/25/19 at System 0241, Until Inc 04/06/19 at 2242, Line Patency Medication administered onsite lamotrigine 25 MG lamoTRIgine 03/18/2019 active TAKE 2 Bon Chewable Tablet (LAMICTAL) 25 mg 12:00:00 AM TABLETS BY [facility] lamoTRIgine rapid dissolve EST SRAAH EVERY [place] (LAMICTAL) 25 mg tablet 12 TAMMY RS Health rapid dissolve Syste m tablet Inc Methylprednisolon methylPREDNISolon 03/17/2019 20 Intra ac tive 20 mg, Bon e 40 MG/ML e (PF) 09:00:00 AM mg VENou Intr aVENous, [facility] Injectable (SOLU-MEDROL) EST s DAILY , First [place] Solution injection 20 mg dose (after Health methylPREDNISolon last Sy stem e (PF) modification Inc (SOLU-MEDROL) ) on Tue injection 20 mg 03/17/19 a t 0900, Until Discontinued Medication administered onsite 1 ML heparin heparin 03/17/2019 5000 SubCUTAneous active 1 mL by Bon sodium, porcine sodium,porcine 12:00:00 AM U SubCUTAneous [facility] 5000 UNT/ML (HEPARIN, EST route ev james [place] Injection PORCINE,) 5,000 twel ve (12) Health heparin unit/mL hours every Sy stem sodium,porcine injection twelv e (12) Inc (HEPARIN, hours. PORCINE,) 5,000 unit/mL injection Acetaminophen acetaminophen 03/17/2019 650 Oral active Take 20.3 mL Bon 32 MG/ML Oral (TYLENOL) 12:00:00 AM mg by mouth [facility] Solution 32MG/ML soln EST every fo ur [place] acetaminophen solution (4) tammy rs as Health (TYLENOL) needed for Syst em 32MG/ML soln Pain or Inc solution Fever. multivitamin [id number] 03/17/2019 5 mL Per G Tube aborted 5 mL by Per G Bon (MULTI-DELYN, 12:00:00 AM Tube route [facility] WELLESSE) liqd EST daily. Maggy [employer] Inc Amoxicillin 875 amoxicillin-cla 03/17/2019 1 Per J Tube active 1 Tab by Per Bon MG / vulanate 12:00:00 AM {tbl} J Tube r oute [facility] Clavulanate 125 (AUGMENTIN) EST tw o (2) times [place] MG Oral Tablet 875-125 mg per a day for 3 Health amoxicillin-cla tablet days. S ystem vulanate Inc (AUGMENTIN) 875-125 mg per tablet Prednisone 1 predniSONE 5 03/17/2019 30 mg Per J Tube active 30 mL by Per Bon MG/ML Oral mg/5 mL oral 12:00:00 AM J Tube route [facility] Solution soultion EST daily for 3 [place] predniSONE 5 days. Then H ealth mg/5 mL oral take 20 ml S ystem soultion via jtube Inc daily for 3 days, then 10 ml via jtube daily for 3 days, then 5ml via jtube daily for 5 days then dc. Methylprednisol methylPREDNISol 03/15/2019 20 mg IntraVENous aborted 20 mg, Bon one 40 MG/ML one (PF) 09:00:00 PM I ntraVENous, [facility] Injectable (SOLU-MEDROL) EST EVERY 12 [place] Solution injection 20 mg HOURS , First [facility] methylPREDNISol dose (aft er System one (PF) last Inc (SOLU-MEDROL) modificatio n) injection 20 mg on 03/15/19 at 2100, Until Discontinued Medication administered onsite Acetylcysteine acetylcysteine 03/14/2019 4 Inhalation active 400 mg (4 mL), Bon 100 MG/ML (MUCOMYST) 100 08:00:00 PM mL Inhalation, 2 TIMES [facility] Inhalant mg/mL (10 %) EST DAILY RE SP, First [place] Solution nebulizer dose (after last Health acetylcysteine solution 400 mg modification) on Sat System (MUCOMYST) 100 03/14/19 a t 2000, Inc mg/mL (10 %) Until nebulizer Discontinued
MODE solution 400 mg OF DELIVE RY: Nebulizer Medication administered onsite Budesonide budesonide 03/14/2019 500 Nebulization active 500 mcg, Bon 0.25 MG/ML (PULMICORT) 08:00:00 PM ug Nebulization, 2 TIMES [facility] Inhalant 500 mcg/2 ml EST DAILY RE SP, First [place] Solution nebulizer dose (after last Health budesonide suspension modifica tion) on Sat System (PULMICORT) 03/14/19 at 2 000, Inc 500 mcg/2 ml Until nebulizer Discontinued
MODE suspension OF DELIVERY: Nebulizer Medication administered onsite Mupirocin mupirocin 03/13/2019 Topical active Topical, Bon 0.02 MG/MG (BACTROBAN) 2 09:00:00 AM DAILY, First [facility] Topical % ointment EST dose on Fri [place] Ointment 03/13/19 at Heal th mupirocin 0900, Until Sys tem (BACTROBAN) 2 Discontinue d Inc % ointment Medication administered onsite pantoprazole pantoprazole 03/12/2019 40 Per G active 40 mg, Per G Bon 40 MG Oral (PROTONIX) 07:30:00 AM mg Tube T ube, DAILY [facility] Granules granules for EST BEFORE C harity pantoprazole oral BREAKFAST, H ealth (PROTONIX) suspension 40 First dose on System granules for mg Caro 03/12/19 Inc oral at 0730, suspension 40 Until mg Discontinued Medication administered onsite Alprazolam ALPRAZolam 03/11/2019 0.25 Per G active 0.25 mg, Bon 0.25 MG Oral (XANAX) 10:00:00 PM mg Tube Pe r G [facility] Tablet tablet 0.25 EST Tube, Carmela ty ALPRAZolam mg EVERY Health (XANAX) BEDTIME, 7 System tablet 0.25 doses, Inc mg First dose on Sat03/11/19 at 2200, Last dose on Sat03/17/19 at 2200 Medication administered onsite Acetylcysteine acetylcysteine 03/11/2019 4 Inhalation aborted 400 mg (4 mL), Bon 100 MG/ML (MUCOMYST) 100 09:00:00 PM mL Inhalation, EVERY 12 [facility] Inhalant mg/mL (10 %) EST HOURS, F irst dose [place] Solution nebulizer (after last Health acetylcysteine solution 400 mg modification) on Sat System (MUCOMYST) 100 03/11/19 a t 2100, Inc mg/mL (10 %) Until nebulizer Discontinued
MODE solution 400 mg OF DELIVE RY: Nebulizer Medication administered onsite Budesonide budesonide 03/11/2019 500 Nebulization aborted 500 mcg, Bon 0.25 MG/ML (PULMICORT) 09:00:00 PM ug Nebulization, EVERY [facility] Inhalant 500 mcg/2 ml EST 12 HOURS , First dose [place] Solution nebulizer (after last Health budesonide suspension modifica tion) on Sat System (PULMICORT) 03/11/19 at 2 100, Inc 500 mcg/2 ml Until nebulizer Discontinued
MODE suspension OF DELIVERY: Nebulizer Medication administered onsite vancomycin 03/11/2019 1000 IntraVENous active 1,000 mg, Bon (VANCOCIN) 08:00:00 PM mg IntraVE Nous, [facility] 1,000 mg in EST EVERY 12 Daniela ity 0.9% sodium HOURS, 14 Hea lth chloride 250 doses, First System mL IVPB dose on Sat Inc 03/11/19 at 2000, Last dose on Sat03/18/19 at 0800, at 125 mL/hr Medication administered onsite Albuterol 0.833 MG/ML albuterol-ipratropium 03/11/2019 3 Nebu lization active 3 mL, Nebulization, Bon / Ipratropium [place] (DUO-NEB) 2.5 MG-0.5 08:00:00 PM mL EVERY 6 HOURS WHILE [facility] 0.167 MG/ML Inhalant MG/3 ML EST A WAKE RESP, First [place] Solution dose (after last Health albuterol-ipratropium mod ification) on Sat System (DUO-NEB) 2.5 MG-0.5 02/14 10/31 at 2000, Inc MG/3 ML Until Discontinued
MODE OF DELIVERY: Nebulizer Medication administered onsite piperacillin-tazobactam 03/11/2019 3.375 IntraVENous ac tive 3.375 g, Bon (ZOSYN) 3.375 g in 0.9% 05:00:00 PM g IntraVENous, [facility] sodium chloride EST EVERY 8 C harity (MBP/ADV) 100 mL MBP HOUR S, 21 Health doses, First System dose on Sat Inc 03/11/19 at 1700, Last dose on Sat03/18/19 at 0900, at 200 mL/hr Medication administered onsite cinacalcet cinacalcet 03/11/2019 60 Oral active 60 mg, Oral, Bon 30 MG Oral (SENSIPAR) 12:00:00 PM mg D AILY, First [facility] Tablet tablet 60 mg EST dose on d [place] cinacalcet 03/11/19 at He alth (SENSIPAR) 1200, Until Sy stem tablet 60 mg Discontinued Inc Medication administered onsite Budesonide budesonide 03/11/2019 500 Nebulization aborted 500 mcg, Bon 0.25 MG/ML (PULMICORT) 12:00:00 PM ug Nebulization, 2 TIMES [facility] Inhalant 500 mcg/2 ml EST DAILY, F irst dose on [place] Solution nebulizer Sat 9 at 1200, Health budesonide suspension Until Sy stem (PULMICORT) Discontinued< br>MODE Inc 500 mcg/2 ml OF DELIVERY: nebulizer Nebulizer suspension Medication administered onsite Albuterol 0.833 MG/ML albuterol-ipratropium 03/11/2019 3 N ebulization aborted 3 mL, Nebulization, Bon / Ipratropium [place] (DUO-NEB) 2.5 MG-0.5 12:00:00 PM mL EVERY 6 HOURS, First [facility] 0.167 MG/ML Inhalant MG/3 ML EST d ose on Sat03/11/19 [place] Solution at 1200, Until H ealth albuterol-ipratropium Dis continued
MODE System (DUO-NEB) 2.5 MG-0.5 OF D ELIVERY: Inc MG/3 ML Nebulizer Medication administered onsite multivitamin [id number] 03/11/2019 1 {tbl} Per G active 1 Tab, Per G Bon (ONE A DAY) 12:00:00 PM Tube Tube, DAILY, [facility] tablet 1 Tab EST First dose o n [place] Sat03/11/19 Health at 1200, System Until Inc Discontinued Medication administered onsite Acetylcysteine acetylcysteine 03/11/2019 4 Inhalation aborted 400 mg (4 mL), Bon 100 MG/ML (MUCOMYST) 100 12:00:00 PM mL Inhalation, 2 TIMES [facility] Inhalant mg/mL (10 %) EST DAILY, F irst dose on [place] Solution nebulizer Sat 9 at 1200, Health acetylcysteine solution 400 mg Until System (MUCOMYST) 100 Discontinu ed
MODE Inc mg/mL (10 %) OF DELIVERY: nebulizer Nebulizer solution 400 mg Medication administered onsite 1 ML heparin 03/11/2019 5000 SubCUTAneous active 5 ,000 Units, Bon heparin (porcine) 11:00:00 AM U SubCU TAneous, [facility] sodium, injection EST EVERY 12 Maggy rity porcine 5,000 Units HOURS, [facility] 5000 UNT/ML dose on Sat S ystem Injection 03/11/19 at Inc heparin 1100, Until (porcine) Discontinued injection 5,000 Units Medication administered onsite Valproic valproic 03/11/2019 750 Per G active 750 mg, Per G Bon Acid 50 acid (as 11:00:00 AM mg Tube Tube, EVERY [facility] MG/ML Oral sodium salt) EST 12 TAMMY RS, [place] Solution (DEPAKENE) First dose on [facility] valproic 250 mg/5 mL 03/11 System acid (as (5 mL) oral at 1100, Inc sodium salt) solution 750 Unti l (DEPAKENE) mg Discontinued 250 mg/5 mL (5 mL) oral solution 750 mg Medication administered onsite lamotrigine lamoTRIgine 03/11/2019 50 Per G active 50 mg, Per G Bon 25 MG Oral (LaMICtal) 11:00:00 AM mg Tube T ube, 2 TIMES [facility] Tablet tablet 50 mg EST DAILY, [facility] [place] lamoTRIgine dose on Sat H ealth (LaMICtal) 03/11/19 at Sy stem tablet 50 mg 1100, Until Inc Discontinued Medication administered onsite Acetaminophen acetaminophen 03/11/2019 650 Per G active 650 mg, Per G Bon 32 MG/ML Oral (TYLENOL) 10:42:33 AM mg Tube Tube, EVERY 4 [facility] Solution solution 650 mg EST HOURS [place] acetaminophen NEEDED, Hea lth (TYLENOL) Starting Sat Sy stem solution 650 mg 03/11/19 at Inc 1042, Until Discontinued, Fever, Mild Pain Medication administered onsite 0.9% [id number] 03/11/2019 50 IntraVENous active 50 mL/hr, at Bon sodium 06:48:00 AM mL/h 50 mL/hr, S ecours chloride EST IntraVENous, Maggy rity infusion CONTINUOUS, Heal th Starting Wed System 03/11/19 at Inc 0648, Until Discontinued Medication administered onsite Methylprednisolone methylPREDNISolone 03/11/2019 40 IntraVENous aborted 40 mg, Bon 40 MG/ML Injectable (PF) (SOLU-MEDROL) 06:44:00 AM mg IntraVENous, [facility] Solution injection 40 mg EST EVERY 6 [place] methylPREDNISolone HOURS, [facility] (PF) (SOLU-MEDROL) dose o n Wed System injection 40 mg 03/11/19 at Inc 0644, Until Discontinued Medication administered onsite vancomycin 03/11/2019 1000 IntraVENous completed 1,000 mg, Bon (VANCOCIN) 06:44:00 AM mg IntraVE Nous, [facility] 1,000 mg in EST ONCE, 1 dose, [place] 0.9% sodium [facility] 03/11/19 Health chloride 250 at 0645, at System mL IVPB 125 mL/hr Inc Medication administered onsite Acetaminophen acetaminophen 03/11/2019 975 Oral completed 975 mg, Bon 325 MG Oral (TYLENOL) 05:59:00 AM mg O ral, [facility] Tablet tablet 975 mg EST NOW, 1 Ch arity acetaminophen dose, Sat H ealth (TYLENOL) 03/11/19 System tablet 975 mg at 0559 Inc Medication administered onsite sodium 32983-164-94 03/11/2019 IntraVENous active 5-10 mL, Bon chloride 03:55:00 AM IntraVENo us, [facility] (NS) flush EST NEEDED, Maggy rity 5-10 mL Starting Sat03/11/19 at System 0355, Until Inc Discontinued, Line Patency Medication administered onsite dextrose 5 [id number] 02/16/2019 50 IntraVENous aborted 50 mL/hr, at Bon % - 0.45% 10:00:00 PM mL/h 50 mL/hr , [facility] NaCl EST IntraVENous, Aemrica infusion CONTINUOUS, Starting Mon System 02/16/19 at Inc 2200, Until Sat02/18/19 at 1755 Medication administered onsite valproate 02/16/2019 750 IntraVENous aborted 750 mg, Bon (DEPACON) 10:00:00 PM mg IntraVEN ous, [facility] 750 mg in EST EVERY 12 HOURS, [place] 0.9% sodium First dose on Health chloride 50 Sat02/16/19 a t System mL IVPB 2200, Until Inc Discontinued, at 50 mL/hr Medication administered onsite haloperidol [id number] 02/16/2019 0.5 IntraMUSCular abort ed 0.5 mg, Bon lactate 09:37:57 PM mg IntraMUSCu lar, [facility] (HALDOL) EST EVERY 3 HOURS Ch arity injection NEEDED, 0.5 mg Starting Sat Syste m 02/16/19 at Inc 2137, Until Sat02/18/19 at 1755, Psychosis, Agitation Medication administered onsite Methylprednisolone methylPREDNISolone 02/16/2019 20 IntraVENous aborted 20 mg, Bon 40 MG/ML Injectable (PF) (SOLU-MEDROL) 09:00:00 PM mg IntraVENous, [facility] Solution injection 20 mg EST EVERY 12 [place] methylPREDNISolone HOURS, [facility] (PF) (SOLU-MEDROL) dose o n Mon System injection 20 mg 02/16/19 a t Inc 2100, Until Discontinued Medication administered onsite Albuterol 0.83 albuterol 02/16/2019 completed 1 dose, Bon MG/ML Inhalant (PROVENTIL 02:41:36 PM Starting [facility] Solution VENTOLIN) 2.5 EST 08/01 [place] albuterol mg /3 mL at 1441, He alth (PROVENTIL (0.083 %) Until Mon System Inc VENTOLIN) 2.5 nebulizer 9 at mg /3 mL solution 1445 (0.083 %) nebulizer solution Medication administered onsite Albuterol albuterol 02/16/2019 2.5 Inhalation completed OR - PACU, 2.5 Bon 0.83 MG/ML (PROVENTIL 02:37:58 PM mg m g, Inhalation, [facility] Inhalant VENTOLIN) EST NEEDED, 1 [place] Solution nebulizer dose, Start ing Health albuterol solution 02/16/19 at System (PROVENTIL 2.5 mg 1437, Until Mon Inc VENTOLIN) 02/16/19 at 1445 , nebulizer Wheezing
MOD E solution OF DELIVERY: 2.5 mg Nebulizer Medication administered onsite Acetylcysteine acetylcysteine 02/15/2019 4 Nebulization aborted 400 mg (4 mL), Bon 100 MG/ML (MUCOMYST) 100 08:00:00 PM mL Nebulization, 2 TIMES [facility] Inhalant mg/mL (10 %) EST DAILY RE SP, [facility] [place] Solution nebulizer dose on 02/15/19 Health acetylcysteine solution 400 mg at 2000, Until System (MUCOMYST) 100 Discontinu ed
MODE Inc mg/mL (10 %) OF DELIVERY: nebulizer Nebulizer solution 400 mg Medication administered onsite Alprazolam ALPRAZolam 02/14/2019 0.25 Per G completed 0.25 mg, Bon 0.25 MG Oral (XANAX) 09:22:20 AM mg Tube Pe r G [facility] Tablet tablet 0.25 EDT Tube, 4 Maggy rity ALPRAZolam mg TIMES Health (XANAX) DAILY System tablet 0.25 NEEDED, Inc mg Starting 02/14/19 at 0922, Until 02/17/19 at 0921, Anxiety Medication administered onsite pantoprazole 40 pantoprazole 02/13/2019 40 Per NG aborted 40 mg by Per Bon MG Oral (PROTONIX) 40 12:00:00 AM mg tube N G tube route [facility] Granules mg granules for EDT Daily (before [place] pantoprazole oral suspension b reakfast). Health (PROTONIX) 40 System mg granules for Inc oral suspension 1 ML heparin heparin 02/12/2019 5000 SubCUT aborted 1 mL by Bon sodium, porcine sodium,porcine 12:00:00 AM U Aneous SubCUTAneous [facility] 5000 UNT/ML (HEPARIN, EDT route ev james [place] Injection PORCINE,) 5,000 twel ve (12) Health heparin unit/mL hours every Sy stem sodium,porcine injection twelv e (12) Inc (HEPARIN, hours. PORCINE,) 5,000 unit/mL injection cefepime 2 gram 02/12/2019 2 g IntraV aborted 2 g by Bon 2 g IVPB 12:00:00 AM ENous IntraVEN ous [facility] EDT route every [place] eight (8) Health hours. System Inc Prednisone 10 predniSONE 02/12/2019 20 Oral aborted Take 20 mg by Bon MG Oral Tablet (DELTASONE) 10 12:00:00 AM mg mouth daily. [facility] predniSONE mg tablet EDT Daniela ity (DELTASONE) 10 Healt h mg tablet System Inc Prednisone 10 predniSONE 02/12/2019 10 Oral aborted Take 10 mg by Bon MG Oral Tablet (DELTASONE) 10 12:00:00 AM mg mouth daily [facility] predniSONE mg tablet EDT (with Maggy rity (DELTASONE) 10 breakfast) . Health mg tablet System Inc Methylprednisol methylPREDNISol 02/10/2019 40 IntraV abort ed 40 mg, Bon one 40 MG/ML one (PF) 09:00:00 PM mg ENous IntraVENous, [facility] Injectable (Solu-MEDROL) EDT EVERY 12 [place] Solution injection 40 mg HOURS , [facility] methylPREDNISol dose on T ue System one (PF) 02/10/19 at Inc (Solu-MEDROL) 2100, Until injection 40 mg Discontin ued Medication administered onsite Budesonide budesonide 02/10/2019 500 Nebulization aborted 500 mcg, Bon 0.25 MG/ML (PULMICORT) 08:00:00 PM ug Nebulization, 2 TIMES [facility] Inhalant 500 mcg/2 ml EDT DAILY RE SP, [facility] [place] Solution nebulizer dose on Tu02/10/19 Health budesonide suspension at 2000, Until System (PULMICORT) Discontinued< br>MODE Inc 500 mcg/2 ml OF DELIVERY: nebulizer Nebulizer suspension Medication administered onsite Acetylcysteine acetylcysteine 02/09/2019 4 Nebulization aborted 400 mg (4 mL), Bon 100 MG/ML (MUCOMYST) 100 02:00:00 PM mL Nebulization, 3 TIMES [facility] Inhalant mg/mL (10 %) EDT DAILY RE SP, [facility] [place] Solution nebulizer dose on Sat02/09/19 Health acetylcysteine solution 400 mg at 1400, Until System (MUCOMYST) 100 Discontinu ed
MODE Inc mg/mL (10 %) OF DELIVERY: nebulizer Nebulizer solution 400 mg Medication administered onsite Albuterol 0.833 MG/ML albuterol-ipratropium 02/09/2019 3 N ebulization aborted 3 mL, Nebulization, Bon / Ipratropium [place] (DUO-NEB) 2.5 MG-0.5 02:00:00 PM mL EVERY 6 HOURS RESP, [facility] 0.167 MG/ML Inhalant MG/3 ML EDT F irst dose on Sat [place] Solution 02/09/19 at 1400 , [facility] albuterol-ipratropium Unt il System (DUO-NEB) 2.5 MG-0.5 Disc ontinued
MODE Inc MG/3 ML OF DELIVERY: Nebulizer Medication administered onsite Budesonide budesonide 02/09/2019 500 Nebulization aborted 500 mcg, Bon 0.25 MG/ML (PULMICORT) 09:00:00 AM ug Nebulization, 2 TIMES [facility] Inhalant 500 mcg/2 ml EDT DAILY, F irst dose on [place] Solution nebulizer Sat 9 at 0900, [facility] budesonide suspension Until Sy stem (PULMICORT) Discontinued< br>MODE Inc 500 mcg/2 ml OF DELIVERY: nebulizer Nebulizer suspension Medication administered onsite lamotrigine lamoTRIgine 02/09/2019 50 Per G aborted 50 mg, Per G Bon 25 MG Oral (LaMICtal) 09:00:00 AM mg Tube T ube, 2 TIMES [facility] Tablet tablet 50 mg EDT DAILY, Fir [facility] [place] lamoTRIgine dose on Sat H ealth (LaMICtal) 02/09/19 at Sy stem tablet 50 mg 0900, Until Inc Discontinued Medication administered onsite cinacalcet cinacalcet 02/09/2019 60 Oral aborted 60 mg, Oral, Bon 30 MG Oral (SENSIPAR) 09:00:00 AM mg D AILY, First [facility] Tablet tablet 60 mg EDT dose on Mo n [place] cinacalcet 02/09/19 at alth (SENSIPAR) 0900, Until Sy stem tablet 60 mg Discontinued Inc Medication administered onsite multivitamin [id number] 02/09/2019 1 Per G aborted 1 Tab, Per G Bon (ONE A DAY) 09:00:00 AM {tbl} Tube Tube, DAILY, [facility] tablet 1 Tab EDT First dose o n [place] 02/09/19 Health at 0900, System Until Inc Discontinued Medication administered onsite pantoprazole pantoprazole 02/09/2019 40 Per NG aborted 40 mg, Per NG Bon 40 MG Oral (PROTONIX) 07:30:00 AM mg tube t ube, DAILY [facility] Granules granules for EDT BEFORE C harity pantoprazole oral BREAKFAST, H ealth (PROTONIX) suspension 40 First dose on System granules for mg 02/09/19 Inc oral at 0730, suspension 40 Until mg Discontinued Medication administered onsite cefepime 02/09/2019 2 g IntraVENous completed 2 g, Bon (MAXIPIME) 2 03:31:00 AM Intra VENous, [facility] g in 0.9% EDT EVERY 8 HOURS, [facility] sodium 21 doses, Health chloride First dose on Sy stem (MBP/ADV) 100 Mon 9 Inc mL MBP at 0331, Last dose on 02/15/19 at 1600, at 200 mL/hr Medication administered onsite sodium [id number] 02/08/2019 IntraVENous aborted 5-40 mL, Bon chloride 11:00:00 PM IntraVENo us, [facility] (NS) flush EDT EVERY 8 Charit y 5-40 mL HOURS, First [facility] th dose on Sun System 02/08/19 at Inc 2300, Until Discontinued Medication administered onsite 1 ML heparin 02/08/2019 5000 SubCUTAneous aborted 5,000 Units, Bon heparin (porcine) 11:00:00 PM U SubCU TAneous, [facility] sodium, injection EDT EVERY 12 Maggy rity porcine 5,000 HOURS, [facility] 5000 UNT/ML Units dose on Sun System Injection 02/08/19 at Inc heparin 2300, Until (porcine) Discontinued injection 5,000 Units Medication administered onsite Valproic valproic 02/08/2019 750 Oral aborted 750 mg, Oral, Bon Acid 50 acid (as 11:00:00 PM mg EVERY 12 [facility] MG/ML Oral sodium salt) EDT HOURS, [facility] [place] Solution (DEPAKENE) dose on [facility] valproic 250 mg/5 mL 02/08/19 at System acid (as (5 mL) oral 2300, Unt il Inc sodium salt) solution 750 Disc ontinued (DEPAKENE) mg 250 mg/5 mL (5 mL) oral solution 750 mg Medication administered onsite Alprazolam ALPRAZolam 02/08/2019 0.25 Per G completed 0.25 mg, Bon 0.25 MG Oral (XANAX) 10:16:12 PM mg Tube Pe r G [facility] Tablet tablet 0.25 EDT Tube, 4 Maggy rity ALPRAZolam mg TIMES Health (XANAX) DAILY System tablet 0.25 NEEDED, Inc mg Starting 02/08/19 at 2216, Until 02/14/19 at 0838, Anxiety Medication administered onsite Acetaminophen acetaminophen 02/08/2019 650 Oral aborted 650 mg, Bon 325 MG Oral (TYLENOL) 10:16:04 PM mg O ral, [facility] Tablet tablet 650 mg EDT EVERY 4 C harity acetaminophen HOURS He alth (TYLENOL) NEEDED, System tablet 650 mg Starting In c [place] 02/08/19 at 2216, Until Sat02/18/19 at 1755, Mild Pain, Fever Medication administered onsite sodium 27313-488-62 02/08/2019 IntraVENous aborted 5-40 mL, Bon chloride 10:16:04 PM IntraVENo us, [facility] (NS) flush EDT NEEDED, Maggy rity 5-40 mL Starting Sun Heal th 02/08/19 at System 2216, Until Inc 02/18/19 at 1755, Line Patency Medication administered onsite methylPREDNISolone [id number] 02/08/2019 40 IntraVENous aborte d 40 mg, Bon (PF) (Solu-MEDROL) 10:00:00 PM mg IntraVENous, [facility] injection 40 mg EDT EVERY 8 C harity HOURS, [facility] dose on Sun System 02/08/19 at Inc 2200, Until Discontinued Medication administered onsite Insulin insulin 02/08/2019 SubCUTAneous aborted SubCUTAneous, Bon Lispro 100 lispro 10:00:00 PM 4 PATRIA ES DAILY [facility] UNT/ML (HUMALOG) EDT BEFORE MEALS & [place] Injectable injection NIGHTLY, [facility] Solution dose on Sun Syst em insulin 02/08/19 at Inc lispro 2200, Until (HUMALOG) Discontinued injection Medication administered onsite dextrose [id number] 02/08/2019 50 IntraVENous aborted 25 g (50 mL), Bon (D50) 09:51:46 PM mL IntraVENous, [facility] infusion EDT NEEDED, Carmela ty 25 g Starting [place] [facility] 02/08/19 at System 2151, Until Inc 02/18/19 at 1755, Hypoglycemia Medication administered onsite Glucagon 1 glucagon 02/08/2019 1 SubCUTAneous aborted 1 mg, Bon MG Injection (GLUCAGEN) 09:51:45 PM mg SubCUTAneous, [facility] glucagon injection 1 EDT NEEDED , [place] (GLUCAGEN) mg Starting Sun H ealth injection 1 02/08/19 at S ystem mg 2150, Until Inc Sat02/18/19 at 1755, Hypoglycemia Medication administered onsite Glucose 0.4 dextrose 02/08/2019 15 g Oral aborted 1 Tube (15 g), Bon MG/MG Oral 40% 09:51:45 PM Oral, A S [facility] Gel dextrose (GLUTOSE) EDT NEEDED, [place] 40% oral gel 1 Starting Sun H ealth (GLUTOSE) Tube 02/08/19 at Sys tem oral gel 1 2150, Until In c Tube Sat02/18/19 at 1755, Hypoglycemia Medication administered onsite Albuterol 0.833 MG/ML albuterol-ipratropium 02/08/2019 3 N ebulization aborted 3 mL, Nebulization, Bon / Ipratropium [place] (DUO-NEB) 2.5 MG-0.5 08:37:00 PM mL EVERY 4 HOURS RESP, [facility] 0.167 MG/ML Inhalant MG/3 ML EDT F irst dose on Sun [place] Solution 02/08/19 at 2037 , Health albuterol-ipratropium Unt il System (DUO-NEB) 2.5 MG-0.5 Disc ontinued
MODE Inc MG/3 ML OF DELIVERY: Nebulizer Medication administered onsite ondansetron [id number] 02/08/2019 4 IntraVENous aborted 4 mg, Bon (ZOFRAN) 08:07:11 PM mg IntraVENo us, [facility] injection 4 EDT EVERY 6 HOURS [place] mg NEEDED, Health Starting [facility] 02/08/19 at Inc 2007, Until Sat02/18/19 at 1755, Nausea or Vomiting Medication administered onsite 0.9% [id number] 02/08/2019 100 IntraVENous aborted 100 mL/hr, at Bon sodium 07:29:00 PM mL/h 100 mL/hr, [facility] chloride EDT IntraVENous, Maggy rity infusion CONTINUOUS, Heal th Starting Sun System 02/08/19 at Inc 1929, Until 02/16/19 at 2142 Medication administered onsite vancomycin 02/08/2019 1000 IntraVENous completed 1,000 mg, Bon (VANCOCIN) 06:48:00 PM mg IntraVE Nous, [facility] 1,000 mg in EDT ONCE, 1 dose, [place] 0.9% sodium [place] 02/08/19 Health chloride 250 at 1849, Sys tem mL IVPB Administer Inc over 120 Minutes Medication administered onsite cefepime 02/08/2019 2 g IntraVENous completed 2 g, Bon (MAXIPIME) 2 06:25:00 PM Intra VENous, [facility] g in 0.9% EDT NOW, 1 dose, Ch arity sodium [place] 02/08/19 Healt h chloride at 1825, at Syst em (MBP/ADV) 100 200 mL/hr I nc mL MBP Medication administered onsite Albuterol albuterol 02/08/2019 2.5 Nebulization completed 2.5 mg, Bon 0.83 MG/ML (PROVENTIL 04:47:00 PM mg N ebulization, [facility] Inhalant VENTOLIN) EDT NOW, 1 dose , [place] Solution nebulizer [place] 9 Health albuterol solution at System (PROVENTIL 2.5 mg 1647
MODE Inc VENTOLIN) OF DELIVERY: nebulizer Nebulizer solution 2.5 mg Medication administered onsite Albuterol albuterol 02/08/2019 2.5 Nebulization completed 2.5 mg, Bon 0.83 MG/ML (PROVENTIL 04:46:00 PM mg N ebulization, [facility] Inhalant VENTOLIN) EDT NOW, 1 dose , [place] Solution nebulizer [place] 9 Health albuterol solution at System (PROVENTIL 2.5 mg 1647
MODE Inc VENTOLIN) OF DELIVERY: nebulizer Nebulizer solution 2.5 mg Medication administered onsite sodium [id number] 02/08/2019 IntraVENous aborted 5-10 mL, Bon chloride 04:45:42 PM IntraVENo us, [facility] (NS) flush EDT NEEDED, Maggy rity 5-10 mL Starting Sun Heal th 02/08/19 at System 1645, Until Inc 02/18/19 at 1755, Line Patency Medication administered onsite 1 ML heparin heparin 01/25/2019 5000 SubCUTAneous active 1 mL by Bon sodium, porcine sodium,porcine 12:00:00 AM U SubCUTAneous [facility] 5000 UNT/ML (HEPARIN, EDT route ev james [place] Injection PORCINE,) 5,000 twel ve (12) Health heparin unit/mL hours every Sy stem sodium,porcine injection twelv e (12) Inc (HEPARIN, hours for 7 PORCINE,) 5,000 days. unit/mL injection Acetylcysteine acetylcysteine 01/24/2019 400 Inhalation active Take 4 mL by Bon 100 MG/ML (MUCOMYST) 100 12:00:00 AM mg inhalation [facility] Inhalant mg/mL (10 %) EDT two (2) times [place] Solution nebulizer a day for 1 0 Health acetylcysteine solution days. System (MUCOMYST) 100 Inc mg/mL (10 %) nebulizer solution Acetaminophen acetaminophen 01/24/2019 650 Oral aborted Take 20.3 mL Bon 32 MG/ML Oral (TYLENOL) 12:00:00 AM mg by mouth [facility] Solution 32MG/ML soln EDT every fo ur [place] acetaminophen solution (4) tammy rs as Health (TYLENOL) needed for Syst em 32MG/ML soln Pain or Inc solution Fever. cholestyramine- [id number] 01/24/2019 4 g Oral aborted Take 1 Packet Bon aspartame 12:00:00 AM by mouth two [facility] (QUESTRAN EDT (2) times a Maggy rity LIGHT) 4 gram day. Health packet System Inc influenza [id number] 01/24/2019 0.5 IntraMUSCular aborted 0.5 mL by Bon vaccine 12:00:00 AM mL IntraMUSCu lar [facility] 2019-20, 65 EDT route PRIOR C harity yrs+,,PF, TO DISCHARGE. H ealth (FLUZONE System HIGH-DOSE) syrg Inc injection piperacillin-ta 01/24/2019 3.375 IntraVENous active 3.375 g by Bon zobactam 3.375 12:00:00 AM g Int raVENous [facility] gram 3.375 g EDT route every [place] IVPB eight (8) Health hours for 4 System days. Inc piperacillin-ta 01/22/2019 3.375 IntraVENous active 3.375 g, Bon zobactam 01:00:00 AM g IntraVENo us, [facility] (ZOSYN) 3.375 g EDT EVERY 8 C harity in 0.9% sodium HOURS, Fir [facility] Health chloride dose on Caro Syst em (MBP/ADV) 100 01/22/19 at Inc mL MBP 0100, Until Discontinued, at 25 mL/hr Medication administered onsite vancomycin 01/22/2019 1000 IntraVENous active 1,000 mg, Bon (VANCOCIN) 12:00:00 AM mg IntraVE Nous, [facility] 1,000 mg in EDT EVERY 12 HOUR S, [place] 0.9% sodium First dose on Health chloride 250 Caro 01/22/19 at System mL IVPB 0000, Until Inc Discontinued, at 125 mL/hr Medication administered onsite Alprazolam ALPRAZolam 01/21/2019 0.25 Oral active 0.25 mg, Bon 0.25 MG Oral (XANAX) 10:00:00 PM mg Or al, [facility] Tablet tablet 0.25 EDT EVERY Carmela ty ALPRAZolam mg BEDTIME, 7 Hea lth (XANAX) doses, System tablet 0.25 First dose In c mg on Sat01/21/19 at 2200, Last dose on Sat01/27/19 at 2200 Medication administered onsite sodium 01/20/2019 IntraVENous completed at 63.8 mL/hr Bon phosphate 15 10:00:00 AM Admin ister [facility] mmol in 0.9% EDT over 4 Hours , [place] sodium ONCE, 1 dose, Heal th chloride 250 01/20/19 System Inc mL infusion at 1000 Medication administered onsite potassium phosphorus 01/19/2019 1 {tbl} Oral active 1 Tab, Oral, Bon phosphate (K PHOS 06:00:00 PM 2 PATRIA ES [facility] 155 MG / NEUTRAL) 250 EDT DAILY, F irst [place] Sodium mg tablet 1 dose on Mon Health Phosphate, Tab 01/19/19 at Sys tem Dibasic 852 1800, Until I nc MG / Sodium Discontinued Phosphate, Monobasic 130 MG Oral Tablet phosphorus (K PHOS NEUTRAL) 250 mg tablet 1 Tab Medication administered onsite Budesonide budesonide 01/17/2019 completed 1 dose, Bon 0.25 MG/ML (PULMICORT) 08:21:47 AM Starting [facility] Inhalant 0.5 mg/2 mL EDT Sat [place] Solution nebulizer at 0821, He alth budesonide suspension Until Sa t System (PULMICORT) 01/17/19 at In c 0.5 mg/2 mL 0837 nebulizer suspension Medication administered onsite Acetylcysteine acetylcysteine 01/16/2019 4 Nebulization active 400 mg (4 mL), Bon 100 MG/ML (MUCOMYST) 100 08:00:00 PM mL Nebulization, 2 TIMES [facility] Inhalant mg/mL (10 %) EDT DAILY RE SP, First [place] Solution nebulizer dose on Sat01/16/19 Health acetylcysteine solution 400 mg at 2000, Until System (MUCOMYST) 100 Discontinu ed
MODE Inc mg/mL (10 %) OF DELIVERY: nebulizer Nebulizer solution 400 mg Medication administered onsite iopamidol [id number] 01/15/2019 100 IntraVENous completed 100 mL, Bon (ISOVUE 09:00:00 AM mL IntraVENou s, [facility] 300) 61 % EDT RAD ONCE, 1 Maggy rity contrast dose, Caro Health injection 01/15/19 at Syst em 100 mL 0900 Inc Medication administered onsite multivit-folic [id number] 01/13/2019 30 Per G active 30 mL, Per G Bon acid-herbal 275 10:00:00 AM mL Tube Tu be, DAILY, [facility] (WELLESSE PLUS) EDT First dos e on [place] oral liquid 30 Tue 9 at Health mL 1000, Until System Discontinued Inc Medication administered onsite Acetylcysteine acetylcysteine 01/12/2019 6 Nebulization aborted 600 mg (6 mL), Bon 100 MG/ML (MUCOMYST) 100 01:00:00 PM mL Nebulization, 2 TIMES [facility] Inhalant mg/mL (10 %) EDT DAILY, F irst dose on [place] Solution nebulizer 01/12/19 at 1300, Health acetylcysteine solution 600 mg Until System (MUCOMYST) 100 Discontinu ed
MODE Inc mg/mL (10 %) OF DELIVERY: nebulizer Nebulizer solution 600 mg Medication administered onsite potassium, [id number] 01/12/2019 1 {packet} Per G completed 1 Bon sodium 10:00:00 AM Tube Packet, Sec ours phosphates EDT Per G [place] (NEUTRA-PHOS) Tube, 4 a lt packet 1 Packet TIMES Sys tem DAILY, Inc 12 doses, First dose on Sat01/12/19 at 1000, Last dose on Sat01/14/19 at 2200 Medication administered onsite Budesonide budesonide 01/11/2019 500 Nebulization active 500 mcg, Bon 0.25 MG/ML (PULMICORT) 08:00:00 PM ug Nebulization, 2 TIMES [facility] Inhalant 500 mcg/2 ml EDT DAILY RE SP, First [place] Solution nebulizer dose on [place] 01/11/19 Health budesonide suspension at 2000, Until System (PULMICORT) Discontinued< br>MODE Inc 500 mcg/2 ml OF DELIVERY: nebulizer Nebulizer suspension Medication administered onsite cinacalcet cinacalcet 01/11/2019 60 Oral active 60 mg, Oral, Bon 30 MG Oral (SENSIPAR) 09:00:00 AM mg D AILY, First [facility] Tablet tablet 60 mg EDT dose on Lemus n [place] cinacalcet 01/11/19 at [facility] (SENSIPAR) 0900, Until Sy stem tablet 60 mg Discontinued Inc Medication administered onsite multivitamin [id number] 01/11/2019 1 Per G aborted 1 Tab, Per G Bon (ONE A DAY) 09:00:00 AM {tbl} Tube Tube, DAILY, [facility] tablet 1 Tab EDT First dose o n [place] 01/11/19 Health at 0900, System Until Inc Discontinued Medication administered onsite pantoprazole pantoprazole 01/11/2019 40 Per G active gastroesophageal 40 mg, Per G Bon 40 MG Oral (PROTONIX) 07:30:00 AM mg Tube reflux dise ase Tube, DAILY [facility] Granules granules for EDT BEFORE C harity pantoprazole oral BREAKFAST, H ealth (PROTONIX) suspension 40 First dose on System granules for mg 01/11/19 Inc oral at 0730, suspension 40 Until mg Discontinued gastroesophageal reflux disease Medication administered onsite Alprazolam ALPRAZolam 01/10/2019 0.5 Per G aborted 0.5 mg, Bon 0.5 MG Oral (XANAX) 09:00:00 PM mg Tube Per G [facility] Tablet tablet 0.5 EDT Tube, Charit y ALPRAZolam mg EVERY Health (XANAX) BEDTIME, System tablet 0.5 mg 13 doses, I nc First dose on [facility] 01/10/19 at 2100, Last dose on [facility] 01/22/19 at 2100 Medication administered onsite Albuterol 0.833 MG/ML albuterol-ipratropium 01/10/2019 3 Nebu lization active 3 mL, Nebulization, Bon / Ipratropium [place] (DUO-NEB) 2.5 MG-0.5 08:00:00 PM mL EVERY 6 HOURS RESP, [facility] 0.167 MG/ML Inhalant MG/3 ML EDT F irst dose on [facility] [place] Solution 01/10/19 at 2000, Health albuterol-ipratropium Unt il System (DUO-NEB) 2.5 MG-0.5 Disc ontinued
MODE Inc MG/3 ML OF DELIVERY: Nebulizer Medication administered onsite piperacillin-tazobactam 01/10/2019 3.375 IntraVENous co mpleted 3.375 g, Bon (ZOSYN) 3.375 g in 0.9% 04:00:00 PM g IntraVENous, [facility] sodium chloride EDT EVERY 8 C harity (MBP/ADV) 100 mL MBP HOUR S, 21 Health doses, First System dose on [facility] Inc 01/10/19 at 1600, Last dose on [facility] 01/17/19 at 0800, at 25 mL/hr Medication administered onsite influenza [id number] 01/10/2019 0.5 IntraMUSCular completed 0.5 mL, Bon vaccine 01:08:20 PM mL IntraMUSCu lar, [facility] 2019-20 (65 EDT PRIOR TO [facility] ity yrs+)(PF) DISCHARGE, 1 He alth (FLUZONE dose, Starting S ystem HIGH-DOSE) [facility] 01/10/19 at Inc injection 1308, Until 0.5 mL Discontinued Medication administered onsite 1 ML heparin 01/10/2019 5000 SubCUTAneous active 5 ,000 Units, Sarbjit heparin (porcine) 01:00:00 PM U SubCU TAneous, [facility] sodium, injection EDT EVERY 12 Maggy rity porcine 5,000 Units HOURS, [facility] 5000 UNT/ML dose on Sat S ystem Injection 01/10/19 at Inc heparin 1300, Until (porcine) Discontinued injection 5,000 Units Medication administered onsite Albuterol 0.833 MG/ML albuterol-ipratropium 01/10/2019 3 N ebulization aborted 3 mL, Nebulization, Bon / Ipratropium [place] (DUO-NEB) 2.5 MG-0.5 01:00:00 PM mL EVERY 4 HOURS RESP, [facility] 0.167 MG/ML Inhalant MG/3 ML EDT F irst dose on [facility] [place] Solution 01/10/19 at 1300, [facility] albuterol-ipratropium Unt il System (DUO-NEB) 2.5 MG-0.5 Disc ontinued
MODE Inc MG/3 ML OF DELIVERY: Nebulizer Medication administered onsite Budesonide budesonide 01/10/2019 500 Nebulization aborted 500 mcg, Bon 0.25 MG/ML (PULMICORT) 01:00:00 PM ug Nebulization, 2 TIMES [facility] Inhalant 500 mcg/2 ml EDT DAILY, F irst dose on [place] Solution nebulizer 01/10/19 at 1300, [facility] budesonide suspension Until Sy stem (PULMICORT) Discontinued< br>MODE Inc 500 mcg/2 ml OF DELIVERY: nebulizer Nebulizer suspension Medication administered onsite cholestyramine-aspartame [id number] 01/10/2019 4 Oral active 4 g, Oral, 3 Bon (QUESTRAN LIGHT) packet 4 01:00:00 PM g TIMES DAILY [facility] g EDT WITH MEALS, [place] First dose on Health 01/10/19 System at 1300, Inc Until Discontinued Medication administered onsite lamotrigine lamoTRIgine 01/10/2019 50 Per G active 50 mg, Per G Bon 25 MG Oral (LaMICtal) 01:00:00 PM mg Tube T ube, 2 TIMES [facility] Tablet tablet 50 mg EDT DAILY, Fir [place] lamoTRIgine dose on Sat H ealth (LaMICtal) 01/10/19 at Sys tem tablet 50 mg 1300, Until Inc Discontinued Medication administered onsite Valproic valproic 01/10/2019 750 Oral active 750 mg, Oral, Bon Acid 50 acid (as 01:00:00 PM mg 2 TIME S DAILY, [facility] MG/ML Oral sodium salt) EDT First dose on [place] Solution (DEPAKENE) Sat 9 at Health valproic 250 mg/5 mL 1300, Unt il System acid (as (5 mL) oral Discontin ued Inc sodium salt) solution 750 (DEPAKENE) mg 250 mg/5 mL (5 mL) oral solution 750 mg Medication administered onsite Acetaminophen acetaminophen 01/10/2019 650 Oral active 650 mg, Oral, Bon 32 MG/ML Oral (TYLENOL) 12:52:22 PM mg EVERY 4 HOURS [facility] Solution solution 650 mg EDT NE EDED, [place] acetaminophen Starting Sa [facility] (TYLENOL) 01/10/19 at Syst em solution 650 mg 1252, Unt il Inc Discontinued, Fever, Mild Pain Medication administered onsite 0.9% 8499-7970-75 01/10/2019 50 IntraVENous aborted 50 mL/hr, at Bon sodium 11:28:00 AM mL/h 50 mL/hr, S ecours chloride EDT IntraVENous, Maggy rity infusion CONTINUOUS, Heal th Starting Sat System 01/10/19 at Inc 1128, Until 01/13/19 at 1730 Medication administered onsite 0.9% sodium 3328-1689-48 01/10/2019 completed 1 dose, Bon chloride 08:36:03 AM Starting [facility] (MBP/ADV) EDT 01/10/19 Maggy rity infusion at 0836, Health Until Sat System Inc 01/10/19 at 0859 Medication administered onsite vancomycin 01/10/2019 1000 IntraVENous completed 1,000 mg, Bon (VANCOCIN) 07:47:00 AM mg IntraVE Nous, [facility] 1,000 mg in EDT ONCE, 1 dose, [place] 0.9% sodium 01/10/19 H ealth chloride 250 at 0747, at System mL IVPB 125 mL/hr Inc Medication administered onsite Acetaminophen acetaminophen 01/10/2019 650 Per G completed 650 mg, Bon 325 MG Oral (TYLENOL) 07:46:00 AM mg Tube P er G [facility] Tablet tablet 650 mg EDT Tube, Maggy rity acetaminophen NOW, 1 Heal th (TYLENOL) dose, System tablet 650 mg Sat Inc 01/10/19 at 0746 Medication administered onsite Piperacillin 3000 MG / piperacillin-tazobactam 01/10/2019 3.375 IntraVENous completed 3.375 g, Bon tazobactam 375 MG (ZOSYN) injection 3.375 07:46:00 AM g IntraVENous, [facility] Injection g EDT NOW, 1 dose, Scott riley piperacillin-tazobactam S at 01/10/19 Health (ZOSYN) injection 3.375 a t 0747 System g Inc Medication administered onsite Albuterol 0.833 MG/ML albuterol-ipratropium 01/10/2019 3 N ebulization completed 3 mL, Bon / Ipratropium [place] (DUO-NEB) 2.5 MG-0.5 07:31:00 AM mL Nebulization, [facility] 0.167 MG/ML Inhalant MG/3 ML EDT N OW, 1 dose, [place] Solution 01/10/19 at H ealth albuterol-ipratropium 073 1
MODE System (DUO-NEB) 2.5 MG-0.5 OF D ELIVERY: Inc MG/3 ML Nebulizer Medication administered onsite Albuterol 0.833 MG/ML albuterol-ipratropium 01/10/2019 3 N ebulization completed 3 mL, Bon / Ipratropium [place] (DUO-NEB) 2.5 MG-0.5 07:30:00 AM mL Nebulization, [facility] 0.167 MG/ML Inhalant MG/3 ML EDT N OW, 1 dose, [place] Solution 01/10/19 at H ealth albuterol-ipratropium 073 0
MODE System (DUO-NEB) 2.5 MG-0.5 OF D ELIVERY: Inc MG/3 ML Nebulizer Medication administered onsite methylPREDNISolone [id number] 01/10/2019 125 IntraVENous comple mikel 125 mg, Bon (PF) (Solu-MEDROL) 07:30:00 AM mg IntraVENous, [facility] injection 125 mg EDT NOW, 1 d ose, [place] 01/10/19 Health at 0730 System Inc Medication administered onsite sodium 49267-181-26 01/10/2019 IntraVENous active 5-10 mL, Bon chloride 07:28:02 AM IntraVENo us, [facility] (NS) flush EDT NEEDED, Maggy rity 5-10 mL Starting Sat Heal th 01/10/19 at System 0728, Until Inc Discontinued, Line Patency Medication administered onsite cholestyramine-aspartame [id number] 12/30/2018 4 g Oral aborted Take 1 Bon (QUESTRAN LIGHT) 4 gram 12:00:00 AM Packet by [facility] packet EDT mouth [place] three (3) Health times System daily Inc (with meals). valacyclovir 1000 MG Oral valACYclo 12/30/2018 100 Per G ac tive 1 Tab by Bon Tablet valACYclovir vir 12:00:00 AM 0 Tube Per G [facility] (VALTREX) 1 gram tablet (VALTREX) EDT mg Tube America 1 gram route Health tablet every System twelve Inc (12) hours for 4 days. potassium, sodium 160399 12/30/2018 1 Per G active 1 Packet Bon phosphates (NEUTRA-PHOS) 12:00:00 AM {pa Tube by Per G [facility] 280-160-250 mg packet EDT cke Tub e America t} route Health four (4) System times Inc daily for 1 day. cinacalcet 30 MG Oral cinacalce 12/30/2018 60 Oral active Take 2 Bon Tablet cinacalcet t 12:00:00 AM mg Tabs by [facility] (SENSIPAR) 30 mg tablet (SENSIPAR EDT mouth America ) 30 mg daily. Health tablet System Inc multivitamin (ONE A DAY) 4174-2650 12/30/2018 1 Per G abo rted 1 Tab by Bon tablet -10 12:00:00 AM {tb Tube Per G Sec[facility] rs EDT l} Tube [place] route Health daily. System Inc Budesonide 0.25 MG/ML budesonid 12/30/2018 500 Nebuli activ e 2 mL by Bon Inhalant Solution e 12:00:00 AM ug zation Nebulizat [facility] budesonide (PULMICORT) (PULMICOR EDT ion route [place] 0.5 mg/2 mL nbsp T) 0.5 two (2 ) Health mg/2 mL times a System nbsp day. Inc Bacitracin 0.5 UNT/MG bacitraci 12/30/2018 1 Topica abort ed mi Apply 1 Bon Topical Ointment n 500 12:00:00 AM {pa l no Packet to [facility] bacitracin 500 unit/gram unit/gram EDT cke r affected [place] ointment ointment t} ba area two Hea lth ct (2) times System er a day. Inc ia Indicatio l ns: minor sk skin in infection in due to fe bacteria, ct facial io scabs ns minor bacterial skin infections Albuterol 0.833 MG/ML albuterol-ipratropium 12/30/2018 3 N ebulization aborted 3 mL by Bon / Ipratropium [place] (DUO-NEB) 2.5 mg-0.5 12:00:00 AM mL Nebulization [facility] 0.167 MG/ML Inhalant mg/3 ml nebu EDT route every [place] Solution four (4) Health albuterol-ipratropium tammy rs as System (DUO-NEB) 2.5 mg-0.5 need ed for Inc mg/3 ml nebu Cough (wheezing, shortness of breath). Albuterol 0.833 MG/ML albuterol-ipratropium 12/30/2018 3 Nebu lization active 3 mL by Bon / Ipratropium [place] (DUO-NEB) 2.5 mg-0.5 12:00:00 AM mL Nebulization [facility] 0.167 MG/ML Inhalant mg/3 ml nebu EDT route every [place] Solution six (6) Health albuterol-ipratropium tammy rs. Every System (DUO-NEB) 2.5 mg-0.5 6 ho urs while Inc mg/3 ml nebu awake lamotrigine 25 MG Oral lamoTRIgine (LAMICTAL) 12/30/2018 50 Per G Tube aborted 2 Tabs by Per Bon Tablet lamoTRIgine 25 mg tablet 12:00:00 AM mg G Tube route [facility] (LAMICTAL) 25 mg EDT two (2) times [place] tablet a day. Health System Inc Clorazepate clorazepate (TRANXENE) 12/30/2018 3.7 Per G Tube active G 1 Tab by Per Bon Dipotassium 3.75 MG 3.75 mg tablet 12:00:00 AM 5 e G Tube route [facility] Oral Tablet EDT mg n nightly. Max [place] clorazepate (TRANXENE) e Da pierre Amount: Health 3.75 mg tablet r 3.75 mg. S ystem a Inc l i z e d a n x i e t y d i s o r d e r Generalized anxiety disorder pantoprazole pantoprazole 11/28/2018 40 Per G aborted gastroesophageal 40 mg by Per Bon 40 MG Oral (PROTONIX) 40 12:00:00 AM mg Tube reflux d isease G Tube route [facility] Granules mg granules EDT Daily Maggy rity pantoprazole for oral (before Health (PROTONIX) 40 suspension break fast). System mg granules Inc for oral suspension gastroesophageal reflux disease Budesonide budesonide 11/27/2018 500 Nebulization aborted 2 mL by Bon 0.25 MG/ML (PULMICORT) 12:00:00 AM ug Nebulization [facility] Inhalant 0.5 mg/2 mL EDT route two (2) [place] Solution nbsp times a day Heal th budesonide for 30 days. S ystem (PULMICORT) Inc 0.5 mg/2 mL nbsp Zinc Oxide zinc oxide Topical active Kanika ly to Bon 0.2 MG/MG 20 % affected area S ecours Topical ointment as needed for [place] Ointment Skin Health zinc oxide Irritation. Sy stem 20 % Inc ointment valacyclovir valACYclovir 1000 Oral aborted T radhames 1,000 mg Bon 1000 MG Oral (VALTREX) 1 mg by mo uth two [facility] Tablet gram tablet (2) times a [place] valACYclovir day. Health (VALTREX) 1 System gram tablet Inc Omeprazole omeprazole 20 Oral aborted Take 20 mg by Bon 20 MG (PRILOSEC) mg mouth daily. [facility] Delayed 20 mg [place] Release Oral capsule Heal th Capsule System omeprazole Inc (PRILOSEC) 20 mg capsule Albuterol albuterol-ip 3 mL Nebulization aborted 3 mL by Bon 0.833 MG/ML ratropium Nebuliza tion [facility] / (DUO-NEB) route every Maggy rity Ipratropium 2.5 mg-0.5 six (6) Health [place] mg/3 ml nebu hours. Sy stem 0.167 MG/ML Inc Inhalant Solution albuterol-ip ratropium (DUO-NEB) 2.5 mg-0.5 mg/3 ml nebu Budesonide budesonide 500 Nebulization aborted 500 mcg by Bon 0.25 MG/ML (PULMICORT) ug Nebuliz ation [facility] Inhalant 0.5 mg/2 mL route two (2) [place] Solution nbsp times a day. [facility] budesonide System (PULMICORT) Inc 0.5 mg/2 mL nbsp chlorhexidin chlorhexidin Topical aborted Apply to Bon e gluconate e affected area [facility] 40 MG/ML (HIBICLENS) every oth er [place] Medicated 4 % liquid day. "[facility] Liquid Soap during shower System chlorhexidin time" Inc e (HIBICLENS) 4 % liquid Loratadine loratadine 10 Oral aborted Take 10 mg by Bon 10 MG Oral (CLARITIN) mg mouth da pierre. [facility] Tablet 10 mg tablet Take at [facility] loratadine bedtime. Healt h (CLARITIN) System 10 mg tablet Inc lamotrigine lamoTRIgine 50 Oral aborted Cecilio e 50 mg by Bon 25 MG Oral (LAMICTAL) mg mouth tw o (2) [facility] Tablet 25 mg tablet times a da y. [facility] lamoTRIgine Health (LAMICTAL) System 25 mg tablet Inc OTHER Oral aborted Take by Bon mouth daily. [facility] multivitamin [facility] System Inc Valproic valproate 750 Oral aborted Take 750 mg Bon Acid 50 (DEPAKENE) mg by mouth tw o [facility] MG/ML Oral 250 mg/5 mL (2) patria es a [place] Solution syrup day. Health valproate System (DEPAKENE) Inc 250 mg/5 mL syrup cinacalcet cinacalcet 60 Oral aborted Take 60 mg by Bon 30 MG Oral (SENSIPAR) mg mouth da pierre. [facility] Tablet 30 mg tablet Carmela ty cinacalcet Health (SENSIPAR) System 30 mg tablet Inc Albuterol albuterol-ip 3 mL Nebulization aborted 3 mL by Bon 0.833 MG/ML ratropium Nebuliza tion [facility] / (DUO-NEB) route every Maggy rity Ipratropium 2.5 mg-0.5 six (6) hours Health [place] mg/3 ml nebu as needed . System 0.167 MG/ML Inc Inhalant Solution albuterol-ip ratropium (DUO-NEB) 2.5 mg-0.5 mg/3 ml nebu Clorazepate clorazepate Oral aborted Cecilio e by Bon Dipotassium (TRANXENE) mouth S ecours 3.75 MG Oral 3.75 mg nightly. [place] Tablet tablet Health clorazepate System (TRANXENE) Inc 3.75 mg tablet Prednisone 1 predniSONE 5 30 Oral aborted T radhames 30 mg by Bon MG/ML Oral mg/5 mL oral mg mouth daily. [facility] Solution soultion [place] predniSONE 5 Health mg/5 mL oral System soultion Inc Clorazepate clorazepate 3.75 Oral aborted Cecilio e 3.75 mg Bon Dipotassium (TRANXENE) mg by mout h. [facility] 3.75 MG Oral 3.75 mg Daniela ity Tablet tablet Health clorazepate System (TRANXENE) Inc 3.75 mg tablet multivitamin 9758-8071-82 1 Oral aborted T radhames 1 Tab by Bon (ONE A DAY) {tbl mouth daily. [facility] tablet } [employer] Acetylcystei acetylcystei 4 mL Inhalation active Take 4 mL by Bon ne 100 MG/ML ne inhalation S ecours Inhalant (MUCOMYST) two (2) ti mes [place] Solution 100 mg/mL a day. Heal th acetylcystei (10 %) Syste m ne nebulizer Inc (MUCOMYST) solution 100 mg/mL (10 %) nebulizer solution silver silver Topical aborted Apply to Bon sulfadiazine sulfADIAZINE affe cted area [facility] 10 MG/ML (SILVADENE) two (2) t imes [place] Topical 1 % topical a day. 1 i [facility] Cream silver cream ribbon- rig ht System sulfADIAZINE edge Inc (SILVADENE) 1 % topical cream Zinc Oxide zinc oxide Topical aborted Ap ply to Bon 100 MG/ML 10 % topical affecte d area [facility] Topical cream daily. Ribbon Ch arity Cream zinc around GT Heal th oxide 10 % site System topical Inc cream omeprazole 40 Per G Tube aborted 40 mg by Per Bon (PRILOSEC) 2 mg G Tube route [facility] mg/mL susp 2 daily. Carmela ty mg/mL oral Health suspension System (compounded) Inc Acetaminophe acetaminophe 650 Rectal aborted Insert 650 mg Bon n 325 MG n (TYLENOL) mg into rect um [facility] Rectal 325 mg every four Carmela ty Suppository suppository (4) ho urs as Health acetaminophe needed for S ystem n (TYLENOL) Fever. Inc 325 mg suppository POLLEN 30 Oral aborted Take 30 mg by B on EXTRACTS mg mouth. [facility] (PROSTAT PO) [employer] System Inc Valproic valproic 750 Per G Tube aborted 750 mg by Per Bon Acid 50 acid, as mg G Tube route [facility] MG/ML Oral sodium salt, every twelve [place] Solution (DEPAKENE) (12) hours . Health valproic 250 mg/5 mL Syst em acid, as (5 mL) soln Inc sodium salt, oral (DEPAKENE) solution 250 mg/5 mL (5 mL) soln oral solution multivitamin 657721 5 mL Per G Tube aborted 5 mL by Per G Bon (MULTI-DELYN Tube route S ecours , WELLESSE) daily. [facility] [employer] Insurance Providers Payer name Policy type / Policy ID Covered Covered alliance party's Policy Plan Coverage type alliance party ID relationship to Montes Information montes MEDICARE [id number] SP [id number] 4 34 MEDICAID [id number] SP [id number] MEDICARE [id number] SP [id number] 4 34 [place] [id number] PART A AND B 34 [place] [id number] [employer]. MEDICARE [id number] SP [id number] H34 MEDICAID OF Medicaid [id number] [place] Medicare [id number] [place] [id number] [place] [id number] H34 PART A AND B 34 GENERIC Commerical [id number] COMMERCIAL GENERIC [id number] COMMERCIAL [place]1 [place] [id number] PART A AND B C1 [place] [id number] CENTER [facility] MEDICARE [id number] H34 PART A AND B 34 [id number] [place] MED[place]ARE [id number] C1 Problems, Conditions, and Diagnoses Code Display Name Description Problem Type Effective Data Dates Source(s) R21 Scrotal rash Scrotal rash [id number] 04/21/2019 [place] [facility] 12:00:00 AM [facility] J96.21 Acute on chronic Acute on chronic [id number] 04/19/2019 [facility] respiratory failure respiratory failure 12:00:0 0 AM [facility] with hypoxia and with hypoxia and EST [facility] hypercapnia hypercapnia System Inc J44.1 COPD with acute COPD with acute [id number] 04/19/2019 [facility] exacerbation exacerbation 12:00:00 AM [facility] J96.01 Acute hypoxemic Acute hypoxemic 72474093 03/25/2019 [facility] respiratory failure respiratory failure 12:00:0 0 AM [facility] S81.801A Leg wound, right, Leg wound, right, [id number] 02/09/2019 [facility] initial encounter initial encounter 12:00:00 AM [facility] L89.612 Pressure injury of Pressure injury of [id number] 9 [facility] right heel, stage 2 right heel, stage 2 12:00:0 0 AM [facility] R06.02 SOB (shortness of SOB (shortness of [id number] 02/08/2019 [facility] breath) breath) 12:00:00 AM [facility] E87.1 Hyponatremia Hyponatremia [id number] 01/10/2019 [place] [facility] 12:00:00 AM [facility] J18.9 Pneumonia involving Pneumonia involving [id number] 019 [facility] right lung right lung 12:00:00 AM [facility] J96.01 Acute respiratory Acute respiratory [id number] 01/10/2019 [facility] failure with hypoxia failure with hypoxia 12:00 :00 AM [facility] F41.1 Generalized anxiety Generalized anxiety [id number] 019 [facility] disorder disorder 12:00:00 AM [facility] A41.9 Sepsis due to Sepsis due to [id number] 12/12/2018 [facility] undetermined undetermined 12:00:00 AM [facility] organism organism [facility] Inc J44.1 COPD exacerbation COPD exacerbation [id number] 11/08/2018 [facility] 12:00:[address] [facility] Inc J18.9 Pneumonia Pneumonia 53720174 11/08/2018 [facility] 12:00:[address] [facility] Inc R06.03 Acute respiratory Acute respiratory [id number] 11/08/2018 [facility] distress distress 12:00:[address] [facility] Inc J44.9 COPD (chronic COPD (chronic 60903746 11/08/2018 [facility] obstructive obstructive 12:00:00 AM [facility] pulmonary disease) pulmonary disease) 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 10772592 09/26/2015 [facility] hiatal hernia hiatal hernia 12:00:00 AM [facility] J18.1 Lobar pneumonia, Lobar pneumonia, Diagnosis 04/19/2019 [facility] - Good unspecified organism unspecified organism 09:47 :00 [facility] J96.01 Acute respiratory Acute respiratory Diagnosis 03/25/2019 [facility] - Good failure with hypoxia failure with hypoxia 02:37 :02 [facility] T85.598A Other mechanical Other mechanical Diagnosis 02/19/2019 [facility] - Good complication of complication of 12:22:24 PM [facility] other [facility] Hospital gastrointestinal gastrointestinal prosthetic devices, prosthetic devices, implants and grafts, implants and grafts, initial encounter initial encounter R06.02 Shortness of breath Shortness of breath Diagnosis 019 [facility] - Good 04:17:57 PM [facility] J69.0 Pneumonitis due to Pneumonitis due to Diagnosis 9 [facility] - Good inhalation of food inhalation of food 07:19:58 AM [facility] and vomit and vomit [facility] R53.83 Other fatigue Other fatigue Diagnosis 01/10/2019 [facility] - Good 07:19:58 AM [facility] J44.1 Chronic obstructive Chronic obstructive Diagnosis 019 [facility] - Good pulmonary disease pulmonary disease 07:09:47 PM Taoist with (acute) with (acute) EDT Hospital exacerbation exacerbation J18.9 Pneumonia, Pneumonia, Diagnosis 11/07/2018 [facility] unspecified organism unspecified organism 07:16 :58 PM [facility] J44.9 Chronic obstructive Chronic obstructive Diagnosis 019 [facility] pulmonary disease, pulmonary disease, 07:16:58 PM Taoist unspecified unspecified [facility] 1765 1765 gastroesophageal Diagnosis [facility] reflux disease [employer] [facility] 2320 2320 minor bacterial skin Diagnosis [facility] [employer] [facility] [id number] Generalized anxiety Diagnosis Bon S ecours disorder America [facility] [employer] [facility] 1765 1765 gastroesophageal Diagnosis [facility] [employer] [facility] Surgeries/Procedures Procedure Description Date Indications Data Source(s) CBC WITH AUTOMATED CBC WITH AUTOMATED Routine 05/07/2019 05/07/2019 Bon DIFF DIFF 4:50 AM EST 09:50:00 AM [facility] [employer] [facility] PHOSPHORUS PHOSPHORUS Routine 05/07/2019 05/07/2019 Bon 4:50 AM EST 09:50:00 AM [facility] [employer] [facility] METABOLIC PANEL, METABOLIC PANEL, Routine 05/07/2019 Bon COMPREHENSIVE COMPREHENSIVE 4:50 AM EST 09:50:00 AM [facility] MAGNESIUM MAGNESIUM Routine 05/07/2019 05/07/2019 Bon 4:50 AM EST 09:50:00 AM [facility] [employer] [facility] CBC WITH AUTOMATED CBC WITH AUTOMATED Routine 05/06/2019 05/06/2019 Bon DIFF DIFF 4:00 AM EST 09:00:00 AM [facility] [employer] [facility] METABOLIC PANEL, METABOLIC PANEL, Routine 05/06/2019 Bon COMPREHENSIVE COMPREHENSIVE 4:00 AM EST 09:00:00 AM [facility] MAGNESIUM MAGNESIUM Routine 05/06/2019 05/06/2019 Bon 4:00 AM EST 09:00:00 AM [facility] HC BLOOD GAS W HC BLOOD GAS W Routine 05/05/2019 020 Bon CALC O2/ARTERIAL CALC O2/ARTERIAL 11:40 AM 04:40 :00 PM [facility] MAGNESIUM MAGNESIUM Routine 05/05/2019 05/05/2019 Bon 4:13 AM EST 09:13:00 AM [facility] [employer] [facility] HC BLOOD GAS W HC BLOOD GAS W Routine 05/04/2019 020 Bon CALC O2/ARTERIAL CALC O2/ARTERIAL 5:49 AM EST 10 :49:00 AM [facility] [employer] [facility] XR CHEST SNGL V XR CHEST SNGL V Routine 05/04/201905/04 Bon 5:41 AM EST 10:41:30 AM [facility] [employer] [facility] CBC WITH AUTOMATED CBC WITH AUTOMATED Routine 05/04/2019 05/04/2019 Bon DIFF DIFF 4:12 AM EST 09:12:00 AM [facility] [employer] [facility] METABOLIC PANEL, METABOLIC PANEL, Routine 05/04/2019 Bon COMPREHENSIVE COMPREHENSIVE 4:12 AM EST 09:12:00 AM [facility] [employer] [facility] MAGNESIUM MAGNESIUM Routine 05/04/2019 05/04/2019 Bon 4:12 AM EST 09:12:00 AM [facility] XR CHEST SNGL V XR CHEST SNGL V Routine 05/03/201905/03 Bon 6:19 AM EST 11:19:43 AM [facility] [employer] [facility] HC BLOOD GAS W HC BLOOD GAS W Routine 05/03/2019 020 Bon CALC O2/ARTERIAL CALC O2/ARTERIAL 5:56 AM EST 10 :56:00 AM [facility] [employer] [facility] CBC WITH AUTOMATED CBC WITH AUTOMATED Routine 05/03/2019 05/03/2019 Bon DIFF DIFF 4:15 AM EST 09:15:00 AM [facility] [facility] [employer] [facility] PHOSPHORUS PHOSPHORUS Routine 05/03/2019 05/03/2019 Bon 4:15 AM EST 09:15:00 AM [facility] [employer] [facility] METABOLIC PANEL, METABOLIC PANEL, Routine 05/03/2019 Bon COMPREHENSIVE COMPREHENSIVE 4:15 AM EST 09:15:00 AM [facility] [employer] [facility] MAGNESIUM MAGNESIUM Routine 05/03/2019 05/03/2019 Bon 4:15 AM EST 09:15:00 AM [facility] HC BLOOD GAS W HC BLOOD GAS W Routine 05/02/2019 020 Bon CALC O2/ARTERIAL CALC O2/ARTERIAL 5:50 AM EST 10 :50:00 AM [facility] [employer] [facility] XR CHEST SNGL V XR CHEST SNGL V Routine 05/02/201905/02 Bon 5:43 AM EST 10:43:39 AM [facility] CBC WITH AUTOMATED CBC WITH AUTOMATED Routine 05/02/2019 05/02/2019 Bon DIFF DIFF 4:30 AM EST 09:30:00 AM [facility] PHOSPHORUS PHOSPHORUS Routine 05/02/2019 05/02/2019 Bon 4:30 AM EST 09:30:00 AM [facility] METABOLIC PANEL, METABOLIC PANEL, Routine 05/02/2019 Bon COMPREHENSIVE COMPREHENSIVE 4:30 AM EST 09:30:00 AM [facility] MAGNESIUM MAGNESIUM Routine 05/02/2019 05/02/2019 Bon 4:30 AM EST 09:30:00 AM [facility] XR CHEST PORT XR CHEST PORT STAT 05/01/2019 0 Bon 3:49 PM EST 08:49:39 PM [facility] TRACHEOSTOMY TRACHEOSTOMY 05/01/2019 FAILURE 05/01/2019 Bon 1:07 PM EST TO THRIVE 06:07:00 PM [facility] 05/01/2019 Healt h 08:12:00 PM [employer] LAPAROTOMY LAPAROTOMY 05/01/2019 FAILURE 05/01/2019 Bon EXPLORATORY EXPLORATORY 1:07 PM EST TO THRIVE 06:07:00 [facility] Healt h 08:12:00 PM [employer] PROTHROMBIN TIME + PROTHROMBIN TIME + Routine 05/01/2019 05/01/2019 Bon INR INR 8:07 AM EST 01:07:00 PM [facility] CBC WITH AUTOMATED CBC WITH AUTOMATED Routine 05/01/2019 05/01/2019 Bon DIFF DIFF 8:07 AM EST 01:07:00 PM [facility] HC PARTIAL HC PARTIAL Routine 05/01/2019 05/01/2019 Bon THROMBOPLASTIN/ THROMBOPLASTIN/ 8:07 AM EST 01:0 7:00 PM [facility] PTT PTT [facility] METABOLIC PANEL, METABOLIC PANEL, Routine 05/01/2019 Bon COMPREHENSIVE COMPREHENSIVE 8:07 AM EST 01:07:00 PM [facility] MAGNESIUM MAGNESIUM Routine 05/01/2019 05/01/2019 Bon 8:07 AM EST 01:07:00 PM [facility] HC BLOOD GAS W HC BLOOD GAS W Routine 05/01/2019 020 Bon CALC O2/ARTERIAL CALC O2/ARTERIAL 6:01 AM EST 11 :01:00 AM [facility] [employer] [facility] XR CHEST SNGL V XR CHEST SNGL V Routine 05/01/201905/01 Bon 4:59 AM EST 09:59:00 AM [facility] [employer] [facility] XR CHEST SNGL V XR CHEST SNGL V STAT 04/30/201904/30 Bon 12:55 PM 05:55:47 PM [facility] CBC W/O DIFF CBC W/O DIFF Routine 04/30/2019 04/30/2019 Bon 4:23 AM EST 09:23:00 AM [facility] HC RENAL FUNCTION HC RENAL FUNCTION Routine 04/30/2019 0 04/30/2019 Bon PANEL PANEL 4:23 AM EST 09:23:00 AM [facility] [employer] [facility] MAGNESIUM MAGNESIUM Routine 04/30/2019 04/30/2019 Bon 4:23 AM EST 09:23:00 AM [facility] [employer] [facility] XR GASTROGRAFFIN XR GASTROGRAFFIN Routine 04/29/2019 Bon UPPER GI UPPER GI 9:57 AM EST 02:57:00 PM [facility] [employer] [facility] CBC W/O DIFF CBC W/O DIFF Routine 04/29/2019 04/29/2019 Bon 6:45 AM EST 11:45:00 AM [facility] [employer] [facility] HC BLOOD GAS W HC BLOOD GAS W Routine 04/29/2019 020 Bon CALC O2/ARTERIAL CALC O2/ARTERIAL 6:11 AM EST 11 :11:00 AM [facility] [employer] [facility] XR CHEST SNGL V XR CHEST SNGL V Routine 04/29/201904/29 Bon 5:07 AM EST 10:07:01 AM [facility] [employer] [facility] PHOSPHORUS PHOSPHORUS Routine 04/29/2019 04/29/2019 Bon 3:45 AM EST 08:45:00 AM [facility] [employer] [facility] METABOLIC PANEL, METABOLIC PANEL, Routine 04/29/2019 Bon BASIC BASIC 3:45 AM EST 08:45:00 AM [facility] MAGNESIUM MAGNESIUM Routine 04/29/2019 04/29/2019 Bon 3:45 AM EST 08:45:00 AM [facility] [employer] ALBUMIN ALBUMIN Routine 04/29/2019 04/29/2019 Jeff n 3:45 AM EST 08:45:00 AM [facility] [employer] BLOOD GAS, BLOOD GAS, Routine 04/28/2019 04/28/2019 Bon ARTERIAL ARTERIAL 2:50 PM EST 07:50:00 PM [facility] [employer] XR ABD (KUB) XR ABD (KUB) Routine 04/28/2019 04/28/2019 Bon 2:07 PM EST 07:07:27 PM [facility] [employer] HC BLOOD GAS W HC BLOOD GAS W Routine 04/28/2019 020 Bon CALC O2/ARTERIAL CALC O2/ARTERIAL 6:23 AM EST 11 :23:00 AM [facility] [employer] XR CHEST SNGL V XR CHEST SNGL V Routine 04/28/201904/28 Bon 5:28 AM EST 10:28:33 AM [facility] [employer] CBC WITH AUTOMATED CBC WITH AUTOMATED Routine 04/28/2019 04/28/2019 Bon DIFF DIFF 3:29 AM EST 08:29:00 AM [facility] [employer] METABOLIC PANEL, METABOLIC PANEL, Routine 04/28/2019 Bon COMPREHENSIVE COMPREHENSIVE 3:29 AM EST 08:29:00 AM [facility] [employer] MAGNESIUM MAGNESIUM Routine 04/28/2019 04/28/2019 Bon 3:29 AM EST 08:29:00 AM [facility] [employer] HC CDIFF TOXIN AMP HC CDIFF TOXIN AMP Routine 04/27/2019 04/27/2019 Bon PROB PROB 9:15 AM EST 02:15:00 PM [facility] [employer] CBC W/O DIFF CBC W/O DIFF Routine 04/27/2019 04/27/2019 Bon 4:20 AM EST 09:20:00 AM [facility] [employer] HC RENAL FUNCTION HC RENAL FUNCTION Routine 04/27/2019 0 04/27/2019 Bon PANEL PANEL 4:20 AM EST 09:20:00 AM [facility] [employer] MAGNESIUM MAGNESIUM Routine 04/27/2019 04/27/2019 Bon 4:20 AM EST 09:20:00 AM [facility] [employer] HC CULTURE HC CULTURE Routine 04/26/2019 04/26/2019 Bon RESPIRATORY RESPIRATORY 5:00 PM EST 10:00:00 PM [facility] [employer] [facility] HC BLOOD GAS W HC BLOOD GAS W Routine 04/26/2019 020 Bon CALC O2/ARTERIAL CALC O2/ARTERIAL 4:26 PM EST 09 :26:00 PM [facility] [employer] [facility] HC LACTIC ACID HC LACTIC ACID Routine 04/26/2019 020 Bon 4:50 AM EST 09:50:00 AM [facility] [employer] [facility] CBC W/O DIFF CBC W/O DIFF Routine 04/26/2019 04/26/2019 Bon 4:30 AM EST 09:30:00 AM [facility] [employer] [facility] HC RENAL FUNCTION HC RENAL FUNCTION Routine 04/26/2019 0 04/26/2019 Bon PANEL PANEL 4:30 AM EST 09:30:00 AM [facility] [employer] [facility] MAGNESIUM MAGNESIUM Routine 04/26/2019 04/26/2019 Bon 4:30 AM EST 09:30:00 AM [facility] [employer] [facility] BLOOD GAS, BLOOD GAS, Routine 04/25/2019 04/26/2019 Bon ARTERIAL ARTERIAL 10:14 PM 03:14:00 AM S [facility] [employer] [facility] XR CHEST PORT XR CHEST PORT Routine 04/25/2019 0 Bon 10:10 PM 03:10:16 AM [facility] [employer] [facility] DUPLEX LOWER EXT DUPLEX LOWER EXT Routine 04/25/201903/2020 Bon VENOUS LEFT VENOUS LEFT 9:15 PM EST 02:15:02 AM [facility] [employer] [facility] DUPLEX UPPER EXT DUPLEX UPPER EXT Routine 04/25/201903/2020 Bon VENOUS RIGHT VENOUS RIGHT 9:01 PM EST 02:01:59 A M [facility] [employer] [facility] EKG, 12 LEAD, EKG, 12 LEAD, Routine 04/25/2019 0 Bon INITIAL INITIAL 8:51 PM EST 01:51:22 AM [facility] [employer] [facility] XR CHEST SNGL V XR CHEST SNGL V STAT 04/25/201904/26 Bon 7:29 PM EST 12:29:53 AM [facility] [employer] [facility] HC BLOOD GAS W HC BLOOD GAS W Routine 04/25/2019 020 Bon CALC O2/ARTERIAL CALC O2/ARTERIAL 6:20 PM EST 11 :20:00 PM [employer] HC CDIFF TOXIN AMP HC CDIFF TOXIN AMP Routine 04/25/2019 04/25/2019 Bon PROB PROB 5:15 PM EST 10:15:00 PM [employer] HC CULTURE BLOOD HC CULTURE BLOOD Routine 04/25/201902/2020 Bon 12:10 PM 05:10:00 PM Sec [facility] [employer] CBC WITH AUTOMATED CBC WITH AUTOMATED STAT 04/25/2019 04/25/2019 Bon DIFF DIFF 12:10 PM 05:10:00 PM Sec ours [facility] [employer] HC CULTURE BLOOD HC CULTURE BLOOD Routine 04/25/201902/2020 Bon 12:05 PM 05:05:00 PM Sec ours [facility] [employer] URINALYSIS W/ RFLX URINALYSIS W/ RFLX Routine 04/25/2019 04/25/2019 Bon MICROSCOPIC MICROSCOPIC 11:47 AM 04:47:00 PM [facility] [employer] CULTURE, URINE CULTURE, URINE Routine 04/25/2019 020 Bon 11:47 AM 04:47:00 PM Sec ours [facility] [employer] HC VANCOMYCIN HC VANCOMYCIN Routine 04/25/2019 0 Bon TROUGH TROUGH 5:24 AM EST 10:24:00 AM [facility] RENAL FUNCTION HC RENAL FUNCTION Routine 04/25/2019 0 04/25/2019 Bon PANEL PANEL 5:24 AM EST 10:24:00 AM [employer] HC EOSINOPHILS HC EOSINOPHILS Routine 04/24/2019 020 Bon URINE URINE 6:30 PM EST 11:30:00 PM [employer] HC SODIUM URINE HC SODIUM URINE STAT 04/24/201904/24 Bon 6:30 PM EST 11:30:00 PM [employer] EEG EPILEPSY EEG EPILEPSY Routine 04/24/2019 04/24/2019 Bon MONITOR 8-24 HR MONITOR 8-24 HR 7:54 AM EST 12:5 4:29 PM [facility] W/VIDEO W/VIDEO [employer] EEG DIGITAL EEG DIGITAL Routine 04/24/2019 04/24/2019 Bon ANALYSIS ANALYSIS 7:54 AM EST 12:54:29 PM [employer] URIC ACID URIC ACID Blood in 04/24/2019 04/24/2019 Bon Lab 6:35 AM EST 11:35:00 AM [employer] HC RENAL FUNCTION HC RENAL FUNCTION Routine 04/24/2019 0 04/24/2019 Bon PANEL PANEL 6:35 AM EST 11:35:00 AM [employer] CK CK Blood in 04/24/2019 04/24/2019 B on Lab 6:35 AM EST 11:35:00 AM [employer] PTH INTACT PTH INTACT Routine 04/24/2019 04/24/2019 Bon 6:30 AM EST 11:30:00 AM [employer] SED RATE, SED RATE, STAT 04/23/2019 04/24/2019 Bon AUTOMATED AUTOMATED 7:45 PM EST 12:45:00 AM [employer] C REACTIVE C REACTIVE STAT 04/23/2019 04/24/2019 Bon PROTEIN, QT PROTEIN, QT 7:45 PM EST 12:45:00 AM [employer] XR CHEST PORT XR CHEST PORT Routine 04/23/2019 0 Bon 6:45 PM EST 11:45:55 PM [employer] URINALYSIS W/ RFLX URINALYSIS W/ RFLX Routine 04/23/2019 04/23/2019 Bon MICROSCOPIC MICROSCOPIC 11:00 AM 04:00:00 PM [employer] HC EOSINOPHILS HC EOSINOPHILS Routine 04/23/2019 020 Bon URINE URINE 11:00 AM 04:00:00 PM Sec [employer] HC SODIUM URINE HC SODIUM URINE STAT 04/23/201904/23 Bon 11:00 AM 04:00:00 PM Sec ours [employer] US RETROPERITONEUM US RETROPERITONEUM Routine 04/23/2019 04/23/2019 Bon COMP COMP 10:48 AM 03:48:37 PM Sec [facility] [employer] URIC ACID URIC ACID Blood in 04/23/2019 04/23/2019 Bon Lab 7:19 AM EST 12:19:00 PM [employer] TSH 3RD GENERATION TSH 3RD GENERATION Blood in 04/23/2019 04/23/2019 Bon Lab 7:19 AM EST 12:19:00 PM [facility] [employer] [facility] METABOLIC PANEL, METABOLIC PANEL, Routine 04/23/201912/2019 Bon BASIC BASIC 7:19 AM EST 12:19:00 PM [facility] [employer] [facility] CK CK Blood in 04/23/2019 04/23/2019 B on Lab 7:19 AM EST 12:19:00 PM [facility] [employer] DUPLEX UPPER EXT DUPLEX UPPER EXT Routine 04/22/201912/2019 Bon VENOUS LEFT VENOUS LEFT 10:35 PM 03:35:25 AM [facility] [employer] [facility] HC VANCOMYCIN HC VANCOMYCIN Timed 04/22/2019 0 Bon TROUGH TROUGH 11:50 AM 04:50:00 PM [facility] [employer] [facility] CT CHEST ABD PELV CT CHEST ABD PELV Routine 04/20/2019 0 04/21/2019 Bon WO CONT WO CONT 9:04 PM EST 02:04:28 AM [facility] HC CULTURE BLOOD HC CULTURE BLOOD STAT 04/20/201909/2019 Bon 2:47 PM EST 07:47:00 PM [facility] [employer] [facility] HC CULTURE BLOOD HC CULTURE BLOOD STAT 04/20/201909/2019 Bon 2:40 PM EST 07:40:00 PM [facility] [employer] [facility] CBC WITH AUTOMATED CBC WITH AUTOMATED Routine 04/20/2019 04/20/2019 Bon DIFF DIFF 4:30 AM EST 09:30:00 AM [facility] HC TROPONIN I HC TROPONIN I Routine 04/20/2019 0 Bon QUANT QUANT 4:30 AM EST 09:30:00 AM [facility] [employer] [facility] HC RENAL FUNCTION HC RENAL FUNCTION Routine 04/20/2019 0 04/20/2019 Bon PANEL PANEL 4:30 AM EST 09:30:00 AM [facility] [employer] MAGNESIUM MAGNESIUM Routine 04/20/2019 04/20/2019 Bon 4:30 AM EST 09:30:00 AM [facility] [employer] [facility] BLOOD GAS, BLOOD GAS, Routine 04/19/2019 04/19/2019 Bon ARTERIAL ARTERIAL 4:59 PM EST 09:59:00 PM [facility] URINALYSIS W/ RFLX URINALYSIS W/ RFLX STAT 04/19/2019 04/19/2019 Bon MICROSCOPIC MICROSCOPIC 4:56 PM EST 09:56:00 PM [facility] RT--BIPAP RT--BIPAP Routine 04/19/2019 04/19/2019 Bon 2:45 PM EST 07:45:44 PM [facility] HC LACTIC ACID HC LACTIC ACID STAT 04/19/2019 020 Bon 2:20 PM EST 07:20:00 PM [facility] HC BLOOD GAS W HC BLOOD GAS W Routine 04/19/2019 020 Bon CALC O2/ARTERIAL CALC O2/ARTERIAL 10:45 AM 03:45 :00 PM [facility] XR CHEST PORT XR CHEST PORT STAT 04/19/2019 0 Bon 10:37 AM 03:37:09 PM Sec ours [facility] HC CULTURE BLOOD HC CULTURE BLOOD STAT 04/19/201908/2019 Bon 10:15 AM 03:15:00 PM Sec [facility] CBC WITH AUTOMATED CBC WITH AUTOMATED STAT 04/19/2019 04/19/2019 Bon DIFF DIFF 10:15 AM 03:15:00 PM Sec ours [facility] HC TROPONIN I HC TROPONIN I STAT 04/19/2019 0 Bon QUANT QUANT Blood in 10:15 AM 03:15:00 PM [facility] METABOLIC PANEL, METABOLIC PANEL, STAT 04/19/201908/2019 Bon COMPREHENSIVE COMPREHENSIVE 10:15 AM 03:15:00 PM [facility] HC LACTIC ACID HC LACTIC ACID STAT 04/19/2019 020 Bon 10:15 AM 03:15:00 PM Sec ours [facility] HC CULTURE BLOOD HC CULTURE BLOOD STAT 04/19/201908/2019 Bon 10:05 AM 03:05:00 PM Sec ours [facility] EKG, 12 LEAD, EKG, 12 LEAD, STAT 04/19/2019 0 Bon INITIAL INITIAL 9:58 AM EST 02:58:00 PM [facility] NON-INVASIVE NON-INVASIVE STAT 04/19/2019 04/19/2019 Bon POSITIVE PRESSURE POSITIVE PRESSURE 9:51 AM EST 02:51:55 PM [facility] [employer] SEPSIS BUNDLE SEPSIS BUNDLE STAT 04/19/2019 0 Bon INITIATED IN ED INITIATED IN ED 9:51 AM EST 02:5 1:18 PM [facility] [employer] EEG EEG 04/19/2019 04/19/2019 Jeff n 9:47 AM EST 02:47:00 PM [facility] [employer] GLUCOSE, POC GLUCOSE, POC Routine 04/06/2019 04/06/2019 Bon 4:39 PM EST 09:39:00 PM [facility] [employer] GLUCOSE, POC GLUCOSE, POC Routine 04/06/2019 04/06/2019 Bon 12:06 PM 05:06:00 PM Sec eugene [employer] XR CHEST PORT XR CHEST PORT Routine 04/06/2019 9 Bon 7:15 AM EST 12:15:00 PM [facility] [employer] GLUCOSE, POC GLUCOSE, POC Routine 04/06/2019 04/06/2019 Bon 7:07 AM EST 12:07:00 PM [facility] [employer] GLUCOSE, POC GLUCOSE, POC Routine 04/06/2019 04/06/2019 Bon 6:26 AM EST 11:26:00 AM [employer] CBC WITH AUTOMATED CBC WITH AUTOMATED Routine 04/06/2019 04/06/2019 Bon DIFF DIFF 5:18 AM EST 10:18:00 AM [employer] URIC ACID URIC ACID Routine 04/06/2019 04/06/2019 Bon 5:18 AM EST 10:18:00 AM [employer] RENAL FUNCTION RENAL FUNCTION Routine 04/06/2019 019 Bon PANEL PANEL 5:18 AM EST 10:18:00 AM [employer] MAGNESIUM MAGNESIUM Routine 04/06/2019 04/06/2019 Bon 5:18 AM EST 10:18:00 AM [employer] GLUCOSE, POC GLUCOSE, POC Routine 04/06/2019 04/06/2019 Bon 12:31 AM 05:31:00 AM Sec eugene [employer] GLUCOSE, POC GLUCOSE, POC Routine 04/05/2019 04/05/2019 Bon 4:14 PM EST 09:14:00 PM [employer] GLUCOSE, POC GLUCOSE, POC Routine 04/05/2019 04/05/2019 Bon 11:54 AM 04:54:00 PM Sec eugene [employer] GLUCOSE, POC GLUCOSE, POC Routine 04/05/2019 04/05/2019 Bon 6:22 AM EST 11:22:00 AM [employer] CBC WITH AUTOMATED CBC WITH AUTOMATED Routine 04/05/2019 04/05/2019 Bon DIFF DIFF 5:34 AM EST 10:34:00 AM [employer] HC RENAL FUNCTION HC RENAL FUNCTION Routine 04/05/2019 1 06/06/2018 Bon PANEL PANEL 5:34 AM EST 10:34:00 AM [employer] MAGNESIUM MAGNESIUM Routine 04/05/2019 04/05/2019 Bon 5:34 AM EST 10:34:00 AM [employer] HC GLUCOSE POCT HC GLUCOSE POCT Routine 04/04/201904/05 Bon 11:33 PM 04:33:00 AM Sec eugene [employer] XR ABD (KUB) XR ABD (KUB) Routine 04/04/2019 04/05/2019 Bon 8:57 PM EST 01:57:04 AM [employer] GLUCOSE, POC GLUCOSE, POC Routine 04/04/2019 04/04/2019 Bon 4:05 PM EST 09:05:00 PM [employer] GLUCOSE, POC GLUCOSE, POC Routine 04/04/2019 04/04/2019 Bon 11:32 AM 04:32:00 PM Sec eugene [employer] CBC WITH AUTOMATED CBC WITH AUTOMATED Routine 04/04/2019 04/04/2019 Bon DIFF DIFF 7:15 AM EST 12:15:00 PM [employer] HC RENAL FUNCTION HC RENAL FUNCTION Routine 04/04/2019 1 06/05/2018 Bon PANEL PANEL 7:15 AM EST 12:15:00 PM [employer] MAGNESIUM MAGNESIUM Routine 04/04/2019 04/04/2019 Bon 7:15 AM EST 12:15:00 PM [employer] GLUCOSE, POC GLUCOSE, POC Routine 04/04/2019 04/04/2019 Bon 6:21 AM EST 11:21:00 AM [employer] HC GLUCOSE POCT HC GLUCOSE POCT Routine 04/04/201904/04 Bon 12:25 AM 05:25:00 AM Sec eugene [employer] GLUCOSE, POC GLUCOSE, POC Routine 04/03/2019 04/03/2019 Bon 4:06 PM EST 09:06:00 PM [employer] GLUCOSE, POC GLUCOSE, POC Routine 04/03/2019 04/03/2019 Bon 12:09 PM 05:09:00 PM Sec eugene [employer] CBC WITH AUTOMATED CBC WITH AUTOMATED Routine 04/03/2019 04/03/2019 Bon DIFF DIFF 6:30 AM EST 11:30:00 AM [employer] HC RENAL FUNCTION HC RENAL FUNCTION Routine 04/03/2019 1 06/04/2018 Bon PANEL PANEL 6:30 AM EST 11:30:00 AM [employer] MAGNESIUM MAGNESIUM Routine 04/03/2019 04/03/2019 Bon 6:30 AM EST 11:30:00 AM [employer] HC GLUCOSE POCT HC GLUCOSE POCT Routine 04/03/201904/03 Bon 6:16 AM EST 11:16:00 AM [employer] GLUCOSE, POC GLUCOSE, POC Routine 04/02/2019 04/03/2019 Bon 11:59 PM 04:59:00 AM Sec eugene [employer] GLUCOSE, POC GLUCOSE, POC Routine 04/02/2019 04/02/2019 Bon 4:30 PM EST 09:30:00 PM [employer] XR ABD (KUB) XR ABD (KUB) STAT 04/02/2019 04/02/2019 Bon 3:30 PM EST 08:30:14 PM [employer] GLUCOSE, POC GLUCOSE, POC Routine 04/02/2019 04/02/2019 Bon 12:33 PM 05:33:00 PM Sec [employer] GLUCOSE, POC GLUCOSE, POC Routine 04/02/2019 04/02/2019 Bon 6:37 AM EST 11:37:00 AM [employer] CBC WITH AUTOMATED CBC WITH AUTOMATED Routine 04/02/2019 04/02/2019 Bon DIFF DIFF 5:59 AM EST 10:59:00 AM [employer] HC RENAL FUNCTION HC RENAL FUNCTION Routine 04/02/2019 1 06/03/2018 Bon PANEL PANEL 5:59 AM EST 10:59:00 AM [employer] [employer] MAGNESIUM MAGNESIUM Routine 04/02/2019 04/02/2019 Bon 5:59 AM EST 10:59:00 AM [facility] [employer] HC GLUCOSE POCT HC GLUCOSE POCT Routine 04/02/201904/02 Bon 12:56 AM 05:56:00 AM Sec ours [employer] GLUCOSE, POC GLUCOSE, POC Routine 04/01/2019 04/01/2019 Bon 4:00 PM EST 09:00:00 PM [facility] [employer] ESOPHAGOGASTRODUOD ESOPHAGOGASTRODUOD 04/01/2019 endoscopi 04/01/2019 Bon ENOSCOPY (EGD) ENOSCOPY (EGD) 1:13 PM EST c 06:13: 00 PM [facility] replaceme EST - Charit y nt of J 04/01/2019 Healt h tube 07:28:00 PM [employer] GLUCOSE, POC GLUCOSE, POC Routine 04/01/2019 04/01/2019 Bon 11:53 AM 04:53:00 PM Sec eugene [employer] HC BLOOD GAS W HC BLOOD GAS W Routine 04/01/2019 019 Bon CALC O2/ARTERIAL CALC O2/ARTERIAL 10:12 AM 03:12 :00 PM Seceugene [employer] IR PICC INSERT WO IR PICC INSERT WO Routine 04/01/2019 1 06/02/2018 Bon PORT OVER 5 YEARS PORT OVER 5 YEARS 8:49 AM EST 01:49:26 PM [facility] WO IMG WO IMG [employer] GLUCOSE, POC GLUCOSE, POC Routine 04/01/2019 04/01/2019 Bon 6:30 AM EST 11:30:00 AM [employer] CBC WITH AUTOMATED CBC WITH AUTOMATED Routine 04/01/2019 04/01/2019 Bon DIFF DIFF 6:00 AM EST 11:00:00 AM [facility] [employer] HC RENAL FUNCTION HC RENAL FUNCTION Routine 04/01/2019 1 06/02/2018 Bon PANEL PANEL 6:00 AM EST 11:00:00 AM [employer] MAGNESIUM MAGNESIUM Routine 04/01/2019 04/01/2019 Bon 6:00 AM EST 11:00:00 AM [employer] HC GLUCOSE POCT HC GLUCOSE POCT Routine 04/01/201904/01 Bon 12:49 AM 05:49:00 AM Sec eugene [employer] GLUCOSE, POC GLUCOSE, POC Routine 03/31/2019 03/31/2019 Bon 4:42 PM EST 09:42:00 PM [employer] PROTHROMBIN TIME + PROTHROMBIN TIME + Routine 03/31/2019 03/31/2019 Bon INR INR 10:15 AM 03:15:00 PM Sec eugene [employer] GLUCOSE, POC GLUCOSE, POC Routine 03/31/2019 03/31/2019 Bon 6:19 AM EST 11:19:00 AM [employer] CBC WITH AUTOMATED CBC WITH AUTOMATED Routine 03/31/2019 03/31/2019 Bon DIFF DIFF 5:10 AM EST 10:10:00 AM [employer] HC RENAL FUNCTION HC RENAL FUNCTION Routine 03/31/2019 1 06/01/2018 Bon PANEL PANEL 5:10 AM EST 10:10:00 AM [employer] MAGNESIUM MAGNESIUM Routine 03/31/2019 03/31/2019 Bon 5:10 AM EST 10:10:00 AM [employer] HC GLUCOSE POCT HC GLUCOSE POCT Routine 03/31/201903/31 Bon 12:40 AM 05:40:00 AM Sec eugene [employer] GLUCOSE, POC GLUCOSE, POC Routine 03/30/2019 03/30/2019 Bon 5:00 PM EST 10:00:00 PM [employer] GLUCOSE, POC GLUCOSE, POC Routine 03/30/2019 03/30/2019 Bon 11:40 AM 04:40:00 PM Sec eugene [employer] GLUCOSE, POC GLUCOSE, POC Routine 03/30/2019 03/30/2019 Bon 6:56 AM EST 11:56:00 AM [employer] CBC WITH AUTOMATED CBC WITH AUTOMATED Routine 03/30/2019 03/30/2019 Bon DIFF DIFF 5:19 AM EST 10:19:00 AM [employer] HC RENAL FUNCTION HC RENAL FUNCTION Routine 03/30/2019 1 05/31/2018 Bon PANEL PANEL 5:19 AM EST 10:19:00 AM [employer] MAGNESIUM MAGNESIUM Routine 03/30/2019 03/30/2019 Bon 5:19 AM EST 10:19:00 AM [employer] HC GLUCOSE POCT HC GLUCOSE POCT Routine 03/30/201903/30 Bon 12:17 AM 05:17:00 AM Sec eugene [employer] GLUCOSE, POC GLUCOSE, POC Routine 03/29/2019 03/29/2019 Bon 11:35 AM 04:35:00 PM Sec eugene [employer] GLUCOSE, POC GLUCOSE, POC Routine 03/29/2019 03/29/2019 Bon 6:17 AM EST 11:17:00 AM [employer] CBC WITH AUTOMATED CBC WITH AUTOMATED Routine 03/29/2019 03/29/2019 Bon DIFF DIFF 4:25 AM EST 09:25:00 AM [employer] HC RENAL FUNCTION HC RENAL FUNCTION Routine 03/29/2019 1 05/30/2018 Bon PANEL PANEL 4:25 AM EST 09:25:00 AM [employer] MAGNESIUM MAGNESIUM Routine 03/29/2019 03/29/2019 Bon 4:25 AM EST 09:25:00 AM [employer] HC GLUCOSE POCT HC GLUCOSE POCT Routine 03/29/201903/29 Bon 12:43 AM 05:43:00 AM [employer] GLUCOSE, POC GLUCOSE, POC Routine 03/28/2019 03/28/2019 Bon 4:26 PM EST 09:26:00 PM [employer] HC GLUCOSE POCT HC GLUCOSE POCT Routine 03/28/201903/28 Bon 11:29 AM 04:29:00 PM [employer] CBC WITH AUTOMATED CBC WITH AUTOMATED Routine 03/28/2019 03/28/2019 Bon DIFF DIFF 6:00 AM EST 11:00:00 AM [employer] HC RENAL FUNCTION HC RENAL FUNCTION Routine 03/28/201905/29/2018 Bon PANEL PANEL 6:00 AM EST 11:00:00 AM [employer] MAGNESIUM MAGNESIUM Routine 03/28/2019 03/28/2019 Bon 6:00 AM EST 11:00:00 AM [employer] HC VANCOMYCIN HC VANCOMYCIN Routine 03/27/2019 9 Bon TROUGH TROUGH 8:50 PM EST 01:50:00 AM [employer] GLUCOSE, POC GLUCOSE, POC Routine 03/27/2019 03/27/2019 Bon 4:42 PM EST 09:42:00 PM [employer] HC GLUCOSE POCT HC GLUCOSE POCT Routine 03/27/201903/27 Bon 11:51 AM 04:51:00 PM [employer] CBC WITH AUTOMATED CBC WITH AUTOMATED Routine 03/27/2019 03/27/2019 Bon DIFF DIFF 6:45 AM EST 11:45:00 AM [employer] HC RENAL FUNCTION HC RENAL FUNCTION Routine 03/27/2019 1 05/28/2018 Bon PANEL PANEL 6:45 AM EST 11:45:00 AM [employer] MAGNESIUM MAGNESIUM Routine 03/27/2019 03/27/2019 Bon 6:45 AM EST 11:45:00 AM [employer] PERCUTANEOUS PERCUTANEOUS 03/26/2019 J-tube 03/26/2019 Bon ENDOSCOPIC ENDOSCOPIC 2:46 PM EST placement 07:46:00 PM [facility] GASTROSTOMY TUBE GASTROSTOMY TUBE EST - [place] INSERTION INSERTION 03/26/2019 H ealth 08:59:00 PM [employer] Inc HC LACTIC ACID HC LACTIC ACID Routine 03/26/2019 019 Bon 10:15 AM 03:15:00 PM Sec eugene [employer] HC BLOOD GAS W HC BLOOD GAS W Routine 03/26/2019 019 Bon CALC O2/ARTERIAL CALC O2/ARTERIAL 9:51 AM EST 02 :51:00 PM [employer] CBC WITH AUTOMATED CBC WITH AUTOMATED Routine 03/26/2019 03/26/2019 Bon DIFF DIFF 8:14 AM EST 01:14:00 PM [employer] HC RENAL FUNCTION HC RENAL FUNCTION Routine 03/26/2019 1 05/27/2018 Bon PANEL PANEL 8:14 AM EST 01:14:00 PM [employer] MAGNESIUM MAGNESIUM Routine 03/26/2019 03/26/2019 Bon 8:14 AM EST 01:14:00 PM [employer] HC LACTIC ACID HC LACTIC ACID Routine 03/26/2019 019 Bon 8:14 AM EST 01:14:00 PM [facility] EST [facility] HC SODIUM URINE HC SODIUM URINE STAT 03/26/201903/26 Bon 7:10 AM EST 12:10:00 PM [employer] HC OSMOLALITY HC OSMOLALITY STAT 03/26/2019 9 Bon URINE URINE 7:10 AM EST 12:10:00 PM [employer] HC LACTIC ACID HC LACTIC ACID STAT 03/25/2019 019 Bon 7:10 AM EST 12:10:00 PM [employer] HC CORTISOL AM HC CORTISOL AM Routine 03/25/2019 019 Bon 7:10 AM EST 12:10:00 PM [employer] URINALYSIS W/ RFLX URINALYSIS W/ RFLX STAT 03/25/2019 03/25/2019 Bon MICROSCOPIC MICROSCOPIC 4:50 AM EST 09:50:00 AM [employer] HC BLOOD GAS W HC BLOOD GAS W Routine 03/25/2019 019 Bon CALC O2/ARTERIAL CALC O2/ARTERIAL 4:30 AM EST 09 :30:00 AM [employer] NON-INVASIVE NON-INVASIVE STAT 03/25/2019 03/25/2019 Bon POSITIVE PRESSURE POSITIVE PRESSURE 4:02 AM EST 09:02:57 AM [employer] VENTILATION VENTILATION [employer] EKG, 12 LEAD, EKG, 12 LEAD, STAT 03/25/2019 9 Bon INITIAL INITIAL 3:23 AM EST 08:23:33 AM [employer] HC CULTURE BLOOD HC CULTURE BLOOD STAT 03/25/201902/2019 Bon 3:10 AM EST 08:10:00 AM [employer] CBC WITH AUTOMATED CBC WITH AUTOMATED STAT 03/25/2019 03/25/2019 Bon DIFF DIFF 3:10 AM EST 08:10:00 AM [employer] URIC ACID URIC ACID Blood in 03/25/2019 03/25/2019 Bon Lab 3:10 AM EST 08:10:00 AM [employer] TSH 3RD GENERATION TSH 3RD GENERATION Blood in 03/25/2019 03/25/2019 Bon Lab 3:10 AM EST 08:10:00 AM [facility] EST [facility] HC OSMOLALITY HC OSMOLALITY Blood in 03/25/2019 03/25/20 19 Bon SERUM SERUM Lab 3:10 AM EST 08:10:00 AM [employer] METABOLIC PANEL, METABOLIC PANEL, STAT 03/25/201902/2019 Bon COMPREHENSIVE COMPREHENSIVE 3:10 AM EST 08:10:00 AM [employer] HC LACTIC ACID HC LACTIC ACID STAT 03/25/2019 019 Bon 3:10 AM EST 08:10:00 AM [employer] XR CHEST PORT XR CHEST PORT STAT 03/25/2019 9 Bon 3:04 AM EST 08:04:10 AM [employer] HC CULTURE BLOOD HC CULTURE BLOOD STAT 03/25/201902/2019 Bon 2:55 AM EST 07:55:00 AM [employer] SEPSIS BUNDLE SEPSIS BUNDLE STAT 03/25/2019 9 Bon INITIATED IN ED INITIATED IN ED 2:41 AM EST 07:4 1:57 AM [employer] CBC WITH AUTOMATED CBC WITH AUTOMATED Routine 03/17/2019 03/17/2019 Bon DIFF DIFF 7:45 AM EST 12:45:00 PM [employer] RENAL FUNCTION RENAL FUNCTION Routine 03/17/2019 019 Bon PANEL PANEL 7:45 AM EST 12:45:00 PM [employer] MAGNESIUM MAGNESIUM Routine 03/17/2019 03/17/2019 Bon 7:45 AM EST 12:45:00 PM [employer] CBC WITH AUTOMATED CBC WITH AUTOMATED Routine 03/16/2019 03/16/2019 Bon DIFF DIFF 7:16 AM EST 12:16:00 PM [employer] HC RENAL FUNCTION HC RENAL FUNCTION Routine 03/16/2019 1 05/17/2018 Bon PANEL PANEL 7:16 AM EST 12:16:00 PM [employer] MAGNESIUM MAGNESIUM Routine 03/16/2019 03/16/2019 Bon 7:16 AM EST 12:16:00 PM [employer] CBC WITH AUTOMATED CBC WITH AUTOMATED Routine 03/15/2019 03/15/2019 Bon DIFF DIFF 7:40 AM EST 12:40:00 PM [employer] HC RENAL FUNCTION HC RENAL FUNCTION Routine 03/15/2019 1 05/16/2018 Bon PANEL PANEL 7:40 AM EST 12:40:00 PM [employer] MAGNESIUM MAGNESIUM Routine 03/15/2019 03/15/2019 Bon 7:40 AM EST 12:40:[address] CHEST WO CONT CT CHEST WO CONT Routine 03/14/2019 Bon 9:55 AM EST 02:55:29 PM [employer] HC BLOOD GAS W HC BLOOD GAS W Routine 03/14/2019 019 Bon CALC O2/ARTERIAL CALC O2/ARTERIAL 9:31 AM EST 02 :31:00 PM [employer] CBC WITH AUTOMATED CBC WITH AUTOMATED Routine 03/14/2019 03/14/2019 Bon DIFF DIFF 7:40 AM EST 12:40:00 PM [employer] METABOLIC PANEL, METABOLIC PANEL, Routine 03/14/2019 Bon COMPREHENSIVE COMPREHENSIVE 7:40 AM EST 12:40:00 PM [employer] MAGNESIUM MAGNESIUM Routine 03/14/2019 03/14/2019 Bon 7:40 AM EST 12:40:00 PM [employer] HC VANCOMYCIN HC VANCOMYCIN Timed 03/13/2019 9 Bon TROUGH TROUGH 8:15 PM EST 01:15:00 AM [employer] CBC WITH AUTOMATED CBC WITH AUTOMATED Routine 03/13/2019 03/13/2019 Bon DIFF DIFF 7:49 AM EST 12:49:00 PM [employer] HC RENAL FUNCTION HC RENAL FUNCTION Routine 03/13/2019 1 05/13/2018 Bon PANEL PANEL 7:49 AM EST 12:49:00 PM [employer] MAGNESIUM MAGNESIUM Routine 03/13/2019 03/13/2019 Bon 7:49 AM EST 12:49:00 PM [employer] HC GLUCOSE POCT HC GLUCOSE POCT Routine 03/13/201903/13 Bon 7:15 AM EST 12:15:00 PM [employer] GLUCOSE, POC GLUCOSE, POC Routine 03/12/2019 03/13/2019 Bon 9:55 PM EST 02:55:00 AM [employer] HC GLUCOSE POCT HC GLUCOSE POCT Routine 03/12/201903/12 Bon 12:07 PM 05:07:00 PM [facility] [employer] HC BLOOD GAS W HC BLOOD GAS W Routine 03/12/201903/12/ 019 Bon CALC O2/ARTERIAL CALC O2/ARTERIAL 11:13 AM 04:13 :00 PM [employer] VALPROIC ACID VALPROIC ACID Routine 03/12/2019 9 Bon 6:50 AM EST 11:50:00 AM [employer] HC RENAL FUNCTION HC RENAL FUNCTION Routine 03/12/2019 1 05/12/2018 Bon PANEL PANEL 6:50 AM EST 11:50:00 AM [employer] MAGNESIUM MAGNESIUM Routine 03/12/2019 03/12/2019 Bon 6:50 AM EST 11:50:00 AM [employer] LIPID PANEL LIPID PANEL Routine 03/12/2019 03/12/2019 Bon 6:50 AM EST 11:50:00 AM [employer] BLOOD GAS, BLOOD GAS, Routine 03/11/2019 03/11/2019 Bon ARTERIAL ARTERIAL 4:38 PM EST 09:38:00 PM [employer] HC LACTIC ACID HC LACTIC ACID STAT 03/11/2019 019 Bon 9:30 AM EST 02:30:00 PM [employer] HC BLOOD GAS W HC BLOOD GAS W Routine 03/11/2019 019 Bon CALC O2/ARTERIAL CALC O2/ARTERIAL 8:08 AM EST 01 :08:00 PM [employer] URINALYSIS W/ RFLX URINALYSIS W/ RFLX STAT 03/11/2019 03/11/2019 Bon MICROSCOPIC MICROSCOPIC 5:10 AM EST 10:10:00 AM [employer] XR CHEST PORT XR CHEST PORT STAT 03/11/2019 9 Bon 4:14 AM EST 09:14:46 AM [employer] HC CULTURE BLOOD HC CULTURE BLOOD STAT 03/11/2019 Bon 4:14 AM EST 09:14:00 AM [employer] HC CULTURE BLOOD HC CULTURE BLOOD STAT 03/11/2019 Bon 4:14 AM EST 09:14:00 AM [employer] CBC WITH AUTOMATED CBC WITH AUTOMATED STAT 03/11/2019 03/11/2019 Bon DIFF DIFF 4:14 AM EST 09:14:00 AM [employer] METABOLIC PANEL, METABOLIC PANEL, STAT 03/11/2019 Bon COMPREHENSIVE COMPREHENSIVE 4:14 AM EST 09:14:00 AM [employer] HC LACTIC ACID HC LACTIC ACID STAT 03/11/2019 019 Bon 4:14 AM EST 09:14:00 AM [employer] EKG, 12 LEAD, EKG, 12 LEAD, STAT 03/11/2019 9 Bon INITIAL INITIAL 4:09 AM EST 09:09:14 AM [employer] SEPSIS BUNDLE SEPSIS BUNDLE STAT 03/11/2019 9 Bon INITIATED IN ED INITIATED IN ED 3:55 AM EST 08:5 5:26 AM [employer] CBC W/O DIFF CBC W/O DIFF Routine 02/18/2019 02/18/2019 Bon 4:02 AM EST 09:02:00 AM [employer] METABOLIC PANEL, METABOLIC PANEL, Routine 02/18/201909/2018 Bon BASIC BASIC 4:02 AM EST 09:02:00 AM [employer] MAGNESIUM MAGNESIUM Routine 02/18/2019 02/18/2019 Bon 4:02 AM EST 09:02:00 AM [employer] GLUCOSE, POC GLUCOSE, POC Routine 02/17/2019 02/18/2019 Bon 10:00 PM 03:00:00 AM [facility] [employer] GLUCOSE, POC GLUCOSE, POC Routine 02/17/2019 02/17/2019 Bon 4:46 PM EST 09:46:00 PM [employer] GLUCOSE, POC GLUCOSE, POC Routine 02/17/2019 02/17/2019 Bon 12:58 PM 05:58:00 PM [employer]ugene [employer] ESOPHAGOGASTRODUOD ESOPHAGOGASTRODUOD 02/17/2019 PEG 02/17/2019 Bon ENOSCOPY (EGD) ENOSCOPY (EGD) 11:00 AM complicat 04:00:0 0 PM [employer] 02/17/2019 Healt h 04:48:00 PM Sy[employer] EST Inc HC GLUCOSE POCT HC GLUCOSE POCT Routine 02/17/201902/17 Bon 8:05 AM EST 01:05:00 PM Joy [employer]ENT[employer] CBC W/O DIFF CBC W/O DIFF Routine 02/17/2019 02/17/2019 Bon 4:51 AM EST 09:51:00 AM [facility] [employer] METABOLIC PANEL, METABOLIC PANEL, Routine 02/17/201908/2018 Bon BASIC BASIC 4:51 AM EST 09:51:00 AM [facility] [employer] MAGNESIUM MAGNESIUM Routine 02/17/2019 02/17/2019 Bon 4:51 AM EST 09:51:00 AM [facility] [employer] GLUCOSE, POC GLUCOSE, POC Routine 02/16/2019 02/17/2019 Bon 10:31 PM 03:31:00 AM Sec eugene F[employer] [facility] Inc GLUCOSE, POC GLUCOSE, POC Routine 02/16/2019 02/16/2019 Bon 5:43 PM EST 10:43:00 PM [facility] [employer] ESOPHAGOGASTRODUOD ESOPHAGOGASTRODUOD 02/16/2019 [employer] 02/16/2019 Bon ENOSCOPY (EGD) ENOSCOPY (EGD) 12:35 PM n,dysphag 05:35:0 0 PM [employer] EST thuy EST - [place] 02/16/2019 Healt h 07:36:00 PM Syst [employer] EST Inc GLUCOSE, POC GLUCOSE, POC Routine 02/16/2019 02/16/2019 Bon 11:33 AM 04:33:00 PM Sec eugene FUENTES [facility] [employer] HC GLUCOSE POCT HC GLUCOSE POCT Routine 02/16/201902/16 Bon 7:07 AM EST 12:07:00 PM Joy [employer] CBC W/O DIFF CBC W/O DIFF Routine 02/16/2019 02/16/2019 Bon 4:45 AM EST 09:45:00 AM [facility] [employer] PHOSPHORUS PHOSPHORUS Routine 02/16/2019 02/16/2019 Bon 4:45 AM EST 09:45:00 AM [facility] [employer] METABOLIC PANEL, METABOLIC PANEL, Routine 02/16/201907/2018 Bon BASIC BASIC 4:45 AM EST 09:45:00 AM [employer] EST [facility] MAGNESIUM MAGNESIUM Routine 02/16/2019 02/16/2019 Bon 4:45 AM EST 09:45:00 AM [employer] ALBUMIN ALBUMIN Routine 02/16/2019 02/16/2019 Jeff n 4:45 AM EST 09:45:00 AM [employer] GLUCOSE, POC GLUCOSE, POC Routine 02/15/2019 02/16/2019 Bon 8:24 PM EST 01:24:00 AM [employer] HC SODIUM URINE HC SODIUM URINE STAT 02/15/201902/15 Bon 5:30 PM EST 10:30:00 PM [employer] HC OSMOLALITY HC OSMOLALITY STAT 02/15/2019 9 Bon URINE URINE 5:30 PM EST 10:30:00 PM [employer] GLUCOSE, POC GLUCOSE, POC Routine 02/15/2019 02/15/2019 Bon 5:27 PM EST 10:27:00 PM [employer] GLUCOSE, POC GLUCOSE, POC Routine 02/15/2019 02/15/2019 Bon 12:27 PM 05:27:00 PM Sec eugene [employer] URIC ACID URIC ACID Routine 02/15/2019 02/15/2019 Bon 11:45 AM 04:45:00 PM Sec eugene [employer] TSH 3RD GENERATION TSH 3RD GENERATION STAT 02/15/2019 02/15/2019 Bon 11:45 AM 04:45:00 PM Sec eugene [employer] HC OSMOLALITY HC OSMOLALITY STAT 02/15/2019 9 Bon SERUM SERUM 11:45 AM 04:45:00 PM Sec eugene [employer] HC GLUCOSE POCT HC GLUCOSE POCT Routine 02/15/201902/15 Bon 8:59 AM EST 01:59:00 PM [employer] PROTHROMBIN TIME + PROTHROMBIN TIME + Routine 02/15/2019 02/15/2019 Bon INR INR 4:35 AM EST 09:35:00 AM [employer] CBC WITH AUTOMATED CBC WITH AUTOMATED Routine 02/15/2019 02/15/2019 Bon DIFF DIFF 4:35 AM EST 09:35:00 AM [employer] METABOLIC PANEL, METABOLIC PANEL, Routine 02/15/201906/2018 Bon BASIC BASIC 4:35 AM EST 09:35:00 AM [facility] [employer] MAGNESIUM MAGNESIUM Routine 02/15/2019 02/15/2019 Bon 4:35 AM EST 09:35:00 AM [facility] GLUCOSE, POC GLUCOSE, POC Routine 02/14/2019 02/15/2019 Bon 9:03 PM EDT 01:03:00 AM [facility] [employer] GLUCOSE, POC GLUCOSE, POC Routine 02/14/2019 02/14/2019 Bon 4:32 PM EDT 08:32:00 PM [facility] [employer] GLUCOSE, POC GLUCOSE, POC Routine 02/14/2019 02/14/2019 Bon 11:52 AM 03:52:00 PM [facility] [employer] HC GLUCOSE POCT HC GLUCOSE POCT Routine 02/14/201902/14 Bon 8:11 AM EDT 12:11:00 PM [facility] CBC W/O DIFF CBC W/O DIFF Routine 02/14/2019 02/14/2019 Bon 5:03 AM EDT 09:03:00 AM [facility] METABOLIC PANEL, METABOLIC PANEL, Routine 02/14/201905/2018 Bon BASIC BASIC 5:03 AM EDT 09:03:00 AM [facility] [employer] MAGNESIUM MAGNESIUM Routine 02/14/2019 02/14/2019 Bon 5:03 AM EDT 09:03:00 AM [facility] [employer] [facility] [employer] GLUCOSE, POC GLUCOSE, POC Routine 02/13/2019 02/14/2019 Bon 8:54 PM EDT 12:54:00 AM [facility] [employer] GLUCOSE, POC GLUCOSE, POC Routine 02/13/2019 02/13/2019 Bon 4:35 PM EDT 08:35:00 PM [facility] [employer] GLUCOSE, POC GLUCOSE, POC Routine 02/13/2019 02/13/2019 Bon 12:52 PM 04:52:00 PM [facility] [employer] [facility] [employer] HC GLUCOSE POCT HC GLUCOSE POCT Routine 02/13/201902/13 Bon 8:19 AM EDT 12:19:00 PM [facility] CBC W/O DIFF CBC W/O DIFF Routine 02/13/2019 02/13/2019 Bon 2:54 AM EDT 06:54:00 AM [facility] [employer] METABOLIC PANEL, METABOLIC PANEL, Routine 02/13/201904/2018 Bon BASIC BASIC 2:54 AM EDT 06:54:00 AM [facility] [employer] MAGNESIUM MAGNESIUM Routine 02/13/2019 02/13/2019 Bon 2:54 AM EDT 06:54:00 AM [facility] GLUCOSE, POC GLUCOSE, POC Routine 02/12/2019 02/13/2019 Bon 9:17 PM EDT 01:17:00 AM [facility] [employer] HC GLUCOSE POCT HC GLUCOSE POCT Routine 02/12/201902/12 Bon 4:34 PM EDT 08:34:00 PM [facility] [employer] HC BLOOD GAS W HC BLOOD GAS W Routine 02/12/2019 019 Bon CALC O2/ARTERIAL CALC O2/ARTERIAL 9:09 AM EDT 01 :09:00 PM [facility] [employer] XR CHEST SNGL V XR CHEST SNGL V Routine 02/12/201902/12 Bon 7:40 AM EDT 11:40:18 AM [facility] [employer] CBC WITH AUTOMATED CBC WITH AUTOMATED Routine 02/12/2019 02/12/2019 Bon DIFF DIFF 4:01 AM EDT 08:01:00 AM [facility] [employer] METABOLIC PANEL, METABOLIC PANEL, Routine 02/12/2019 Bon BASIC BASIC 4:01 AM EDT 08:01:00 AM [facility] [employer] MAGNESIUM MAGNESIUM Routine 02/12/2019 02/12/2019 Bon 4:01 AM EDT 08:01:00 AM [facility] GLUCOSE, POC GLUCOSE, POC Routine 02/11/2019 02/12/2019 Bon 8:06 PM EDT 12:06:00 AM [facility] [employer] GLUCOSE, POC GLUCOSE, POC Routine 02/11/2019 02/11/2019 Bon 4:42 PM EDT 08:42:00 PM [facility] [employer] GLUCOSE, POC GLUCOSE, POC Routine 02/11/2019 02/11/2019 Bon 11:40 AM 03:40:00 PM [facility] [employer] [facility] HC GLUCOSE POCT HC GLUCOSE POCT Routine 02/11/201902/11 Bon 7:21 AM EDT 11:21:00 AM [facility] METABOLIC PANEL, METABOLIC PANEL, Routine 02/11/2019 Bon BASIC BASIC 4:05 AM EDT 08:05:00 AM [facility] MAGNESIUM MAGNESIUM Routine 02/11/2019 02/11/2019 Bon 4:05 AM EDT 08:05:00 AM [facility] CBC W/O DIFF CBC W/O DIFF Routine 02/11/2019 02/11/2019 Bon 4:05 AM EDT 08:05:00 AM [facility] GLUCOSE, POC GLUCOSE, POC Routine 02/10/2019 02/11/2019 Bon 8:45 PM EDT 12:45:00 AM [facility] DUPLEX UPPER EXT DUPLEX UPPER EXT Routine 02/10/2019 Bon VENOUS LEFT VENOUS LEFT 4:11 PM EDT 08:11:59 PM [facility] [employer] [facility] DUPLEX LOWER EXT DUPLEX LOWER EXT Routine 02/10/2019 Bon VENOUS BILAT VENOUS BILAT 4:11 PM EDT 08:11:38 P M [facility] GLUCOSE, POC GLUCOSE, POC Routine 02/10/2019 02/10/2019 Bon 4:10 PM EDT 08:10:00 PM [facility] GLUCOSE, POC GLUCOSE, POC Routine 02/10/2019 02/10/2019 Bon 10:53 AM 02:53:00 PM [facility] HC GLUCOSE POCT HC GLUCOSE POCT Routine 02/10/201902/10 Bon 7:24 AM EDT 11:24:00 AM [facility] CBC WITH AUTOMATED CBC WITH AUTOMATED Routine 02/10/2019 02/10/2019 Bon DIFF DIFF 4:25 AM EDT 08:25:00 AM [facility] METABOLIC PANEL, METABOLIC PANEL, Routine 02/10/2019 Sarbjit COMPREHENSIVE COMPREHENSIVE 4:25 AM EDT 08:25:00 AM [facility] MAGNESIUM MAGNESIUM Routine 02/10/2019 02/10/2019 Bon 4:25 AM EDT 08:25:00 AM [facility] [employer] [facility] GLUCOSE, POC GLUCOSE, POC Routine 02/09/2019 02/10/2019 Bon 8:42 PM EDT 12:42:00 AM [facility] [employer] [facility] GLUCOSE, POC GLUCOSE, POC Routine 02/09/2019 02/09/2019 Bon 4:46 PM EDT 08:46:00 PM [facility] HC BLOOD GAS W HC BLOOD GAS W Routine 02/09/2019 019 Bon CALC O2/ARTERIAL CALC O2/ARTERIAL 2:14 PM EDT 06 :14:00 PM [facility] [employer] XR CHEST SNGL V XR CHEST SNGL V Routine 02/09/201902/09 Bon 2:10 PM EDT 06:10:00 PM [facility] GLUCOSE, POC GLUCOSE, POC Routine 02/09/2019 02/09/2019 Bon 11:14 AM 03:14:00 PM [facility] GLUCOSE POCT HC GLUCOSE POCT Routine 02/09/201902/09 Bon 8:39 AM EDT 12:39:00 PM [facility] [employer] HEMOGLOBIN A1C W/O HEMOGLOBIN A1C W/O Routine 02/09/2019 02/09/2019 Bon EAG EAG 4:45 AM EDT 08:45:00 AM [facility] [employer] HC REF VALPORIC HC REF VALPORIC Routine 02/09/201902/09 Bon ACID FREE ACID FREE 4:45 AM EDT 08:45:00 AM [facility] [employer] CBC W/O DIFF CBC W/O DIFF Routine 02/09/2019 02/09/2019 Bon 4:45 AM EDT 08:45:00 AM [facility] [employer] URIC ACID URIC ACID Routine 02/09/2019 02/09/2019 Bon 4:45 AM EDT 08:45:00 AM [facility] [employer] TSH 3RD GENERATION TSH 3RD GENERATION Routine 02/09/2019 02/09/2019 Bon 4:45 AM EDT 08:45:00 AM [facility] [employer] PHOSPHORUS PHOSPHORUS Routine 02/09/2019 02/09/2019 Bon 4:45 AM EDT 08:45:00 AM [facility] [employer] METABOLIC PANEL, METABOLIC PANEL, Routine 02/09/2019 Bon BASIC BASIC 4:45 AM EDT 08:45:00 AM [facility] [employer] MAGNESIUM MAGNESIUM Routine 02/09/2019 02/09/2019 Bon 4:45 AM EDT 08:45:00 AM [facility] [employer] LIPID PANEL LIPID PANEL Routine 02/09/2019 02/09/2019 Bon 4:45 AM EDT 08:45:00 AM [facility] [employer] HEPATIC FUNCTION HEPATIC FUNCTION STAT 02/09/2019 Bon PANEL PANEL 4:45 AM EDT 08:45:00 AM [facility] EIA QL SGL HC EIA QL SGL Routine 02/08/2019 9 Bon ANTIGEN ANTIGEN 11:30 PM 03:30:00 AM [facility] [employer] HC GLUCOSE POCT HC GLUCOSE POCT Routine 02/08/201902/09 Bon 10:23 PM 02:23:00 AM [facility] ED [facility] [employer] HC LACTIC ACID HC LACTIC ACID STAT 02/08/2019 019 Bon 10:10 PM 02:10:00 AM Sec ours EDT [facility] [employer] XR CHEST PORT XR CHEST PORT STAT 02/08/2019 9 Bon 5:29 PM EDT 09:29:13 PM [facility] HC CULTURE BLOOD HC CULTURE BLOOD STAT 02/08/2019 Bon 5:19 PM EDT 09:19:00 PM [email or web address] HC CULTURE BLOOD HC CULTURE BLOOD STAT 02/08/2019 Bon 5:00 PM EDT 09:00:00 PM [email or web address] CBC WITH AUTOMATED CBC WITH AUTOMATED STAT 02/08/2019 02/08/2019 Bon DIFF DIFF 5:00 PM EDT 09:00:00 PM [email or web address] HC TROPONIN I HC TROPONIN I Blood in 02/08/2019 02/09/20 19 Bon QUANT QUANT Lab 5:00 PM EDT 09:00:00 PM [facility] HC PRO B HC PRO B Blood in 02/08/2019 02/08/2019 Sarbjit NATRIURETIC NATRIURETIC Lab 5:00 PM EDT 09:00:00 PM [facility] PEPTIDE PEPTIDE [facility] METABOLIC PANEL, METABOLIC PANEL, STAT 02/08/2019 Sarbjit COMPREHENSIVE COMPREHENSIVE 5:00 PM EDT 09:00:00 PM [facility] HC LACTIC ACID HC LACTIC ACID STAT 02/08/2019 019 Bon 5:00 PM EDT 09:00:00 PM [facility] URINALYSIS W/ RFLX URINALYSIS W/ RFLX STAT 02/08/2019 02/08/2019 Sarbjit MICROSCOPIC MICROSCOPIC 4:59 PM EDT 08:59:00 PM [facility] SEVERE SEPSIS AND SEVERE SEPSIS AND STAT 02/08/2019 1 Sarbjit SEPTIC SHOCK SEPTIC SHOCK 4:46 PM EDT 08:46:29 [facility] BUNDLE INITIATED BUNDLE INITIATED [facility] EKG, 12 LEAD, EKG, 12 LEAD, STAT 02/08/2019 9 Sarbjit INITIAL INITIAL 4:18 PM EDT 08:18:05 PM [facility] CBC WITH AUTOMATED CBC WITH AUTOMATED STAT 01/24/2019 01/24/2019 Sarbjit DIFF DIFF Blood in 5:35 AM EDT 09:35:00 AM [facility] Lab [facility] RENAL FUNCTION RENAL FUNCTION Routine 01/24/2019 019 Bon PANEL PANEL 5:35 AM EDT 09:35:00 AM [facility] MAGNESIUM MAGNESIUM Routine 01/24/2019 01/24/2019 Bon 5:35 AM EDT 09:35:00 AM [facility] [employer] [facility] HC VANCOMYCIN HC VANCOMYCIN Timed 01/23/2019 9 Bon TROUGH TROUGH 11:05 AM 03:05:00 PM [facility] HC RENAL FUNCTION HC RENAL FUNCTION Routine 01/23/2019 1 Bon PANEL PANEL 5:20 AM EDT 09:20:00 AM [facility] MAGNESIUM MAGNESIUM Routine 01/23/2019 01/23/2019 Bon 5:20 AM EDT 09:20:00 AM [facility] [employer] HC RENAL FUNCTION HC RENAL FUNCTION Routine 01/22/2019 1 Bon PANEL PANEL 4:47 AM EDT 08:47:00 AM [email or web address] MAGNESIUM MAGNESIUM Routine 01/22/2019 01/22/2019 Bon 4:47 AM EDT 08:47:00 AM [email or web address] HC AMMONIA HC AMMONIA Routine 01/22/2019 01/22/2019 Bon 4:47 AM EDT 08:47:00 AM [facility]IN[facility] W/ RFLX URINALYSIS W/ RFLX Routine 01/21/2019 01/22/2019 Bon MICROSCOPIC MICROSCOPIC 11:15 PM 03:15:00 AM [facility] [employer] CULTURE, URINE CULTURE, URINE STAT 01/21/2019 019 Bon 11:15 PM 03:15:00 AM [facility] [employer] [facility] [employer] XR CHEST PORT XR CHEST PORT STAT 01/21/2019 9 Bon 10:36 PM 02:36:07 AM [facility] [employer] HC RENAL FUNCTION HC RENAL FUNCTION Routine 01/21/2019 1 Bon PANEL PANEL 4:23 AM EDT 08:23:00 AM [email or web address] MAGNESIUM MAGNESIUM Routine 01/21/2019 01/21/2019 Bon 4:23 AM EDT 08:23:00 AM [email or web address] CBC WITH AUTOMATED CBC WITH AUTOMATED Routine 01/20/2019 01/20/2019 Bon DIFF DIFF 5:43 AM EDT 09:43:00 AM [email or web address] HC RENAL FUNCTION HC RENAL FUNCTION Routine 01/20/2019 1 Bon PANEL PANEL 5:43 AM EDT 09:43:00 AM [email or web address] MAGNESIUM MAGNESIUM Routine 01/20/2019 01/20/2019 Bon 5:43 AM EDT 09:43:00 AM [email or web address] CBC WITH AUTOMATED CBC WITH AUTOMATED Routine 01/19/2019 01/19/2019 Bon DIFF DIFF 4:46 AM EDT 08:46:00 AM [email or web address] HC RENAL FUNCTION HC RENAL FUNCTION Routine 01/19/2019 1 Bon PANEL PANEL 4:46 AM EDT 08:46:00 AM [email or web address] MAGNESIUM MAGNESIUM Routine 01/19/2019 01/19/2019 Bon 4:46 AM EDT 08:46:00 AM [email or web address] CBC WITH AUTOMATED CBC WITH AUTOMATED Routine 01/18/2019 01/18/2019 Bon DIFF DIFF 4:13 AM EDT 08:13:00 AM [email or web address] HC RENAL FUNCTION HC RENAL FUNCTION Routine 01/18/2019 1 Bon PANEL PANEL 4:13 AM EDT 08:13:00 AM [email or web address] MAGNESIUM MAGNESIUM Routine 01/18/2019 01/18/2019 Bon 4:13 AM EDT 08:13:00 AM [email or web address] XR CHEST PORT XR CHEST PORT Routine 01/17/2019 9 Bon 8:12 AM EDT 12:12:40 PM [email or web address] CBC WITH AUTOMATED CBC WITH AUTOMATED Routine 01/17/2019 01/17/2019 Bon DIFF DIFF 4:45 AM EDT 08:45:00 AM [email or web address] HC RENAL FUNCTION HC RENAL FUNCTION Routine 01/17/2019 1 Bon PANEL PANEL 4:45 AM EDT 08:45:00 AM [email or web address] MAGNESIUM MAGNESIUM Routine 01/17/2019 01/17/2019 Bon 4:45 AM EDT 08:45:00 AM [email or web address] CBC WITH AUTOMATED CBC WITH AUTOMATED Routine 01/16/2019 01/16/2019 Bon DIFF DIFF 5:45 AM EDT 09:45:00 AM [email or web address] HC RENAL FUNCTION HC RENAL FUNCTION Routine 01/16/2019 1 Bon PANEL PANEL 5:45 AM EDT 09:45:00 AM [email or web address] MAGNESIUM MAGNESIUM Routine 01/16/2019 01/16/2019 Bon 5:45 AM EDT 09:45:[email or web address] CHEST W CONT CT CHEST W CONT Routine 01/15/201901/15 Bon F/U F/U 9:35 AM EDT 01:35:04 PM [email or web address] CBC WITH AUTOMATED CBC WITH AUTOMATED Routine 01/15/2019 01/15/2019 Bon DIFF DIFF 5:27 AM EDT 09:27:00 AM [email or web address] HC RENAL FUNCTION HC RENAL FUNCTION Routine 01/15/2019 1 Bon PANEL PANEL 5:27 AM EDT 09:27:00 AM [email or web address] MAGNESIUM MAGNESIUM Routine 01/15/2019 01/15/2019 Bon 5:27 AM EDT 09:27:00 AM [email or web address] CBC WITH AUTOMATED CBC WITH AUTOMATED Routine 01/14/2019 01/14/2019 Bon DIFF DIFF 6:17 AM EDT 10:17:00 AM [email or web address] HC RENAL FUNCTION HC RENAL FUNCTION Routine 01/14/2019 1 Bon PANEL PANEL 6:17 AM EDT 10:17:00 AM [email or web address] MAGNESIUM MAGNESIUM Routine 01/14/2019 01/14/2019 Bon 6:17 AM EDT 10:17:00 AM [email or web address] CBC WITH AUTOMATED CBC WITH AUTOMATED Routine 01/13/2019 01/13/2019 Bon DIFF DIFF 4:41 AM EDT 08:41:00 AM [email or web address] HC RENAL FUNCTION HC RENAL FUNCTION Routine 01/13/2019 1 Bon PANEL PANEL 4:41 AM EDT 08:41:00 AM [email or web address] MAGNESIUM MAGNESIUM Routine 01/13/2019 01/13/2019 Bon 4:41 AM EDT 08:41:00 AM [email or web address] CBC WITH AUTOMATED CBC WITH AUTOMATED Routine 01/12/2019 01/12/2019 Bon DIFF DIFF 4:33 AM EDT 08:33:00 AM [email or web address] HC RENAL FUNCTION HC RENAL FUNCTION Routine 01/12/2019 0 01/12/2019 Bon PANEL PANEL 4:33 AM EDT 08:33:00 AM [email or web address] MAGNESIUM MAGNESIUM Routine 01/12/2019 01/12/2019 Bon 4:33 AM EDT 08:33:00 AM [email or web address] DUPLEX LOWER EXT DUPLEX LOWER EXT Routine 01/11/2019 Bon VENOUS BILAT VENOUS BILAT 8:02 PM EDT 12:02:51 A M [email or web address] CBC WITH AUTOMATED CBC WITH AUTOMATED Routine 01/11/2019 01/11/2019 Bon DIFF DIFF 4:58 AM EDT 08:58:00 AM [email or web address] HC RENAL FUNCTION HC RENAL FUNCTION Routine 01/11/2019 0 01/11/2019 Bon PANEL PANEL 4:58 AM EDT 08:58:00 AM [facility] [employer] MAGNESIUM MAGNESIUM Routine 01/11/2019 01/11/2019 Bon 4:58 AM EDT 08:58:00 AM [facility] [employer] VALPROIC ACID VALPROIC ACID Routine 01/11/2019 9 Bon 4:53 AM EDT 08:53:00 AM [email or web address] HC RENAL FUNCTION HC RENAL FUNCTION Timed 01/10/2019 0 01/10/2019 Bon PANEL PANEL 5:33 PM EDT 09:33:00 PM [facility] [employer] HC OSMOLALITY HC OSMOLALITY Routine 01/10/2019 9 Bon SERUM SERUM 5:33 PM EDT 09:33:[email or web address] [address] CHEST WO CONT CT CHEST WO CONT STAT 01/10/2019 Bon 1:11 PM EDT 05:11:39 PM [email or web address] HC LACTIC ACID HC LACTIC ACID STAT 01/10/2019 019 Bon 11:29 AM 03:29:00 PM Sec ours EDT [facility] [employer] HC ABO BLOOD TYPE HC ABO BLOOD TYPE STAT 01/10/2019 0 01/10/2019 Bon 11:29 AM 03:29:00 PM Sec ours EDT [facility] [employer] CULTURE, URINE CULTURE, URINE STAT 01/10/2019 019 Bon 8:58 AM EDT 12:58:00 PM [email or web address] URINALYSIS W/ RFLX URINALYSIS W/ RFLX STAT 01/10/2019 01/10/2019 Bon MICROSCOPIC MICROSCOPIC 8:48 AM EDT 12:48:00 PM [email or web address] XR CHEST PORT XR CHEST PORT STAT 01/10/2019 9 Bon 8:19 AM EDT 12:19:35 PM [facility] [employer] HC CULTURE BLOOD HC CULTURE BLOOD STAT 01/10/2019 Bon 7:55 AM EDT 11:55:00 AM [facility] SEVERE SEPSIS AND SEVERE SEPSIS AND STAT 01/10/2019 0 01/10/2019 Bon SEPTIC SHOCK SEPTIC SHOCK 7:51 AM EDT 11:51:23 A M [facility] BUNDLE INITIATED BUNDLE INITIATED [facility] BLOOD GAS W HC BLOOD GAS W Routine 01/10/2019 019 Bon CALC O2/ARTERIAL CALC O2/ARTERIAL 7:47 AM EDT 11 :47:00 AM [facility] HC CULTURE BLOOD HC CULTURE BLOOD STAT 01/10/2019 Bon 7:40 AM EDT 11:40:00 AM [facility] PROTHROMBIN TIME + PROTHROMBIN TIME + STAT 01/10/2019 01/10/2019 Bon INR INR 7:40 AM EDT 11:40:00 AM [facility] CBC WITH AUTOMATED CBC WITH AUTOMATED STAT 01/10/2019 01/10/2019 Bon DIFF DIFF 7:40 AM EDT 11:40:00 AM [facility] HC PARTIAL HC PARTIAL STAT 01/10/2019 01/10/2019 Bon THROMBOPLASTIN/ THROMBOPLASTIN/ 7:40 AM EDT 11:4 0:00 AM [facility] [employer] HC TROPONIN I HC TROPONIN I STAT 01/10/2019 9 Bon QUANT QUANT 7:40 AM EDT 11:40:00 AM [facility] METABOLIC PANEL, METABOLIC PANEL, STAT 01/10/2019 Bon COMPREHENSIVE COMPREHENSIVE 7:40 AM EDT 11:40:00 AM [facility] HC LACTIC ACID HC LACTIC ACID STAT 01/10/2019 019 Bon 7:40 AM EDT 11:40:00 AM [facility] CK CK STAT 01/10/2019 01/10/2019 Jeff n 7:40 AM EDT 11:40:00 AM [facility] BNP BNP STAT 01/10/2019 01/10/2019 Jeff n 7:40 AM EDT 11:40:00 AM [facility] EKG, 12 LEAD, EKG, 12 LEAD, STAT 01/10/2019 9 Bon INITIAL INITIAL 7:34 AM EDT 11:34:31 AM [facility] SEVERE SEPSIS AND SEVERE SEPSIS AND STAT 01/10/2019 0 01/10/2019 Bon SEPTIC SHOCK SEPTIC SHOCK 7:29 AM EDT 11:29:13 A M [facility] BUNDLE INITIATED BUNDLE INITIATED [facility] GLUCOSE, POC GLUCOSE, POC Routine 12/30/2018 12/30/2018 Bon 11:53 AM 03:53:00 PM Sec [facility] GLUCOSE, POC GLUCOSE, POC Routine 12/30/2018 12/30/2018 Bon 6:23 AM EDT 10:23:00 AM [facility] CBC WITH AUTOMATED CBC WITH AUTOMATED Routine 12/30/2018 12/30/2018 Bon DIFF DIFF 3:06 AM EDT 07:06:00 AM [facility] RENAL FUNCTION RENAL FUNCTION Routine 12/30/2018 019 Bon PANEL PANEL 3:06 AM EDT 07:06:00 AM [facility] MAGNESIUM MAGNESIUM Routine 12/30/2018 12/30/2018 Bon 3:06 AM EDT 07:06:00 AM [facility] GLUCOSE, POC GLUCOSE, POC Routine 12/30/2018 12/30/2018 Bon 12:08 AM 04:08:00 AM Sec ours [facility] GLUCOSE, POC GLUCOSE, POC Routine 12/29/2018 12/29/2018 Bon 5:37 PM EDT 09:37:00 PM [facility] GLUCOSE, POC GLUCOSE, POC Routine 12/29/2018 12/29/2018 Bon 11:48 AM 03:48:00 PM Sec ours [facility] XR CHEST PORT XR CHEST PORT Routine 12/29/2018 9 Bon 11:01 AM 03:01:00 PM Sec ours [facility] URINALYSIS W/ RFLX URINALYSIS W/ RFLX Routine 12/29/2018 12/29/2018 Bon MICROSCOPIC MICROSCOPIC 11:00 AM 03:00:[address] [facility] GLUCOSE, POC GLUCOSE, POC Routine 12/29/2018 12/29/2018 Bon 7:06 AM EDT 11:06:00 AM [facility] CBC WITH AUTOMATED CBC WITH AUTOMATED Routine 12/29/2018 12/29/2018 Bon DIFF DIFF 3:08 AM EDT 07:08:00 AM [facility] HC RENAL FUNCTION HC RENAL FUNCTION Routine 12/29/2018 0 12/29/2018 Bon PANEL PANEL 3:08 AM EDT 07:08:00 AM [facility] MAGNESIUM MAGNESIUM Routine 12/29/2018 12/29/2018 Bon 3:08 AM EDT 07:08:00 AM [facility] HC GLUCOSE POCT HC GLUCOSE POCT Routine 12/29/201812/29 Bon 12:36 AM 04:36:00 AM Sec [facility] GLUCOSE, POC GLUCOSE, POC Routine 12/28/2018 12/28/2018 Bon 5:52 PM EDT 09:52:00 PM [facility] GLUCOSE, POC GLUCOSE, POC Routine 12/28/2018 12/28/2018 Bon 11:51 AM 03:51:00 PM Sec [facility] GLUCOSE, POC GLUCOSE, POC Routine 12/28/2018 12/28/2018 Bon 6:10 AM EDT 10:10:00 AM [facility] CBC WITH AUTOMATED CBC WITH AUTOMATED Routine 12/28/2018 12/28/2018 Bon DIFF DIFF 3:21 AM EDT 07:21:00 AM [facility] [employer] [facility] HC RENAL FUNCTION HC RENAL FUNCTION Routine 12/28/2018 0 12/28/2018 Bon PANEL PANEL 3:21 AM EDT 07:21:00 AM [facility] [employer] [facility] MAGNESIUM MAGNESIUM Routine 12/28/2018 12/28/2018 Bon 3:21 AM EDT 07:21:00 AM [facility] HC GLUCOSE POCT HC GLUCOSE POCT Routine 12/28/201812/28 Bon 12:29 AM 04:29:00 AM Sec ours EDT EDT [facility] [employer] GLUCOSE, POC GLUCOSE, POC Routine 12/27/2018 12/27/2018 Bon 5:45 PM EDT 09:45:00 PM [facility] [employer] GLUCOSE, POC GLUCOSE, POC Routine 12/27/2018 12/27/2018 Bon 12:20 PM 04:20:00 PM [facility] [employer] GLUCOSE, POC GLUCOSE, POC Routine 12/27/2018 12/27/2018 Bon 6:13 AM EDT 10:13:00 AM [facility] [employer] CBC WITH AUTOMATED CBC WITH AUTOMATED Routine 12/27/2018 12/27/2018 Bon DIFF DIFF 3:05 AM EDT 07:05:00 AM [facility] [employer] HC RENAL FUNCTION HC RENAL FUNCTION Routine 12/27/2018 0 12/27/2018 Bon PANEL PANEL 3:05 AM EDT 07:05:00 AM [facility] [employer] MAGNESIUM MAGNESIUM Routine 12/27/2018 12/27/2018 Bon 3:05 AM EDT 07:05:00 AM [facility] [employer] HC GLUCOSE POCT HC GLUCOSE POCT Routine 12/27/201812/27 Bon 12:12 AM 04:12:00 AM Sec eugene [facility] [employer] GLUCOSE, POC GLUCOSE, POC Routine 12/26/2018 12/26/2018 Bon 5:29 PM EDT 09:29:00 PM [facility] [employer] DUPLEX UPPER EXT DUPLEX UPPER EXT Routine 12/26/2018 Bon VENOUS LEFT VENOUS LEFT 4:43 PM EDT 08:43:11 PM [facility] [employer] [facility] [employer] GLUCOSE, POC GLUCOSE, POC Routine 12/26/2018 12/26/2018 Bon 12:13 PM 04:13:00 PM Sec eugene [facility] [employer] CBC W/O DIFF CBC W/O DIFF Routine 12/26/2018 12/26/2018 Bon 11:30 AM 03:30:00 PM Sec eugene [facility] [employer] GLUCOSE, POC GLUCOSE, POC Routine 12/26/2018 12/26/2018 Bon 7:01 AM EDT 11:01:00 AM [facility] RENAL FUNCTION HC RENAL FUNCTION Routine 12/26/2018 0 12/26/2018 Bon PANEL PANEL 3:10 AM EDT 07:10:00 AM [facility] [employer] [facility] MAGNESIUM MAGNESIUM Routine 12/26/2018 12/26/2018 Bon 3:10 AM EDT 07:10:00 AM [facility] [employer] HC GLUCOSE POCT HC GLUCOSE POCT Routine 12/26/201812/26 Bon 12:25 AM 04:25:00 AM Sec [facility] EDT [facility] [employer] [facility] GLUCOSE, POC GLUCOSE, POC Routine 12/25/2018 12/25/2018 Bon 4:22 PM EDT 08:22:00 PM [facility] [employer] [facility] HC BLOOD GAS W HC BLOOD GAS W Routine 12/25/2018 019 Bon CALC O2/ARTERIAL CALC O2/ARTERIAL 2:36 PM EDT 06 :36:00 PM [facility] [employer] GLUCOSE, POC GLUCOSE, POC Routine 12/25/2018 12/25/2018 Bon 12:27 PM 04:27:00 PM [facility] SNGL V XR CHEST SNGL V Routine 12/25/201812/25 Bon 7:24 AM EDT 11:24:07 AM [facility] GLUCOSE, POC GLUCOSE, POC Routine 12/25/2018 12/25/2018 Bon 6:27 AM EDT 10:27:00 AM [facility] [employer] HC RENAL FUNCTION HC RENAL FUNCTION Routine 12/25/2018 0 12/25/2018 Bon PANEL PANEL 3:15 AM EDT 07:15:00 AM [facility] [employer] HC PRO B HC PRO B Routine 12/25/2018 12/25/2018 Bon NATRIURETIC NATRIURETIC 3:15 AM EDT 07:15:00 AM [facility] [employer] PE[employer] [facility] [employer] [facility] MAGNESIUM MAGNESIUM Routine 12/25/2018 12/25/2018 Bon 3:15 AM EDT 07:15:00 AM [facility] [employer] HC GLUCOSE POCT HC GLUCOSE POCT Routine 12/25/201812/25 Bon 12:02 AM 04:02:00 AM [facility], POC GLUCOSE, POC Routine 12/24/2018 12/24/2018 Bon 7:19 PM EDT 11:19:00 PM [email or web address] GLUCOSE, POC GLUCOSE, POC Routine 12/24/2018 12/24/2018 Bon 11:57 AM 03:57:00 PM Sec [facility]ene [facility] [employer] URINALYSIS W/ RFLX URINALYSIS W/ RFLX Routine 12/24/2018 12/24/2018 Bon MICROSCOPIC MICROSCOPIC 9:45 AM EDT 01:45:00 PM [facility] [employer] CULTURE, URINE CULTURE, URINE Routine 12/24/2018 019 Bon 9:45 AM EDT 01:45:00 PM [facility] [employer] GLUCOSE, POC GLUCOSE, POC Routine 12/24/2018 12/24/2018 Bon 6:21 AM EDT 10:21:00 AM [facility] RENAL FUNCTION HC RENAL FUNCTION Routine 12/24/2018 0 12/24/2018 Bon PANEL PANEL 3:11 AM EDT 07:11:00 AM [email or web address] [employer] MAGNESIUM MAGNESIUM Routine 12/24/2018 12/24/2018 Bon 3:11 AM EDT 07:11:00 AM [facility] HC GLUCOSE POCT HC GLUCOSE POCT Routine 12/24/201812/24 Bon 12:09 AM 04:09:00 AM Sec [facility]ugene [facility] [employer] GLUCOSE, POC GLUCOSE, POC Routine 12/23/2018 12/23/2018 Bon 6:01 PM EDT 10:01:00 PM [facility] HC CULTURE BLOOD HC CULTURE BLOOD Routine 12/23/201801/2019 Bon 12:00 PM 04:00:00 PM Sec ours [facility] [employer] GLUCOSE, POC GLUCOSE, POC Routine 12/23/2018 12/23/2018 Bon 11:52 AM 03:52:00 PM [facility] HC CULTURE BLOOD HC CULTURE BLOOD Routine 12/23/201801/2019 Bon 11:40 AM 03:40:00 PM Sec [facility] [employer] CBC W/O DIFF CBC W/O DIFF Blood in 12/23/2018 12/23/2018 Bon Lab 3:38 AM EDT 07:38:00 AM [email or web address] HC RENAL FUNCTION HC RENAL FUNCTION Routine 12/23/2018 0 12/23/2018 Bon PANEL PANEL 3:38 AM EDT 07:38:00 AM [facility] [employer] MAGNESIUM MAGNESIUM Routine 12/23/2018 12/23/2018 Bon 3:38 AM EDT 07:38:00 AM [email or web address] [employer] HC GLUCOSE POCT HC GLUCOSE POCT Routine 12/22/201812/23 Bon 11:36 PM 03:36:00 AM Sec [facility] [employer] [facility] [employer] GLUCOSE, POC GLUCOSE, POC Routine 12/22/2018 12/22/2018 Bon 5:54 PM EDT 09:54:00 PM [email or web address] [employer] GLUCOSE, POC GLUCOSE, POC Routine 12/22/2018 12/22/2018 Bon 11:59 AM 03:59:00 PM Sec [facility] [employer] GLUCOSE, POC GLUCOSE, POC Routine 12/22/2018 12/22/2018 Bon 6:25 AM EDT 10:25:00 AM [email or web address] [employer] HC RENAL FUNCTION HC RENAL FUNCTION Routine 12/22/2018 0 12/22/2018 Bon PANEL PANEL 3:24 AM EDT 07:24:00 AM [employer] MAGNESIUM MAGNESIUM Routine 12/22/2018 12/22/2018 Bon 3:24 AM EDT 07:24:00 AM [employer] HC GLUCOSE POCT HC GLUCOSE POCT Routine 12/22/201812/22 Bon 12:04 AM 04:04:00 AM [facility] GLU[facility], POC GLUCOSE, POC Routine 12/21/2018 12/21/2018 Bon 6:05 PM EDT 10:05:00 PM [email or web address] HC GLUCOSE POCT HC GLUCOSE POCT Routine 12/21/201812/21 Bon 1:51 PM EDT 05:51:[email or web address] [address] ABD PELV WO CT ABD PELV WO Routine 12/21/2018 019 Bon CONT CONT 11:47 AM 03:47:29 PM Sec [facility] [employer] HC RENAL FUNCTION HC RENAL FUNCTION Routine 12/21/2018 0 12/21/2018 Bon PANEL PANEL 3:15 AM EDT 07:15:00 AM [facility] MAGN[employer]UM MAGNESIUM Routine 12/21/2018 12/21/2018 Bon 3:15 AM EDT 07:15:00 AM [facility] GLUCOSE, POC GLUCOSE, POC Routine 12/20/2018 12/21/2018 Bon 11:27 PM 03:27:00 AM Sec [facility] GLUCOSE, POC GLUCOSE, POC Routine 12/20/2018 12/20/2018 Bon 6:06 PM EDT 10:06:00 PM [facility] GLUCOSE, POC GLUCOSE, POC Routine 12/20/2018 12/20/2018 Bon 12:07 PM 04:07:00 PM Sec [facility] HC GLUCOSE POCT HC GLUCOSE POCT Routine 12/20/201812/20 Bon 5:42 AM EDT 09:42:00 AM [facility] CBC WITH AUTOMATED CBC WITH AUTOMATED Routine 12/20/2018 12/20/2018 Bon DIFF DIFF 3:25 AM EDT 07:25:00 AM [facility] HC RENAL FUNCTION HC RENAL FUNCTION Routine 12/20/2018 0 12/20/2018 Bon PANEL PANEL 3:25 AM EDT 07:25:00 AM [facility] MAGNESIUM MAGNESIUM Routine 12/20/2018 12/20/2018 Bon 3:25 AM EDT 07:25:00 AM [facility] [employer] [facility] RT--CHEST RT--CHEST Routine 12/20/2018 12/20/2018 Bon PHYSIOTHERAPY PHYSIOTHERAPY 12:05 AM 04:05:53 AM [facility] (CPT) (CPT) [facility] GLUCOSE, POC GLUCOSE, POC Routine 12/19/2018 12/20/2018 Bon 11:24 PM 03:24:00 AM Sec ours [facility] GLUCOSE, POC GLUCOSE, POC Routine 12/19/2018 12/19/2018 Bon 4:43 PM EDT 08:43:00 PM [facility] SURGICAL PATHOLOGY SURGICAL PATHOLOGY Routine 12/19/2018 12/19/2018 Bon 1:12 PM EDT 05:12:00 PM [facility] HC CULTURE BODY HC CULTURE BODY Routine 12/19/201812/19 Bon FLUID FLUID 12:30 PM 04:30:00 PM [facility] HC CULTURE HC CULTURE Routine 12/19/2018 12/19/2018 Bon ANAEROBIC ANAEROBIC 12:30 PM 04:30:[address] [facility] HC BODY FLD CELL HC BODY FLD CELL Routine 12/19/201809/2018 Bon COUNT W/O DIFF COUNT W/O DIFF 12:30 PM 04:30:00 PM [facility] [employer] [facility] CT THORACENTESIS CT THORACENTESIS Routine 12/19/201809/2018 Bon INSRT CHEST TUBE INSRT CHEST TUBE 12:17 PM 04:17 :[address] [facility] GLUCOSE, POC GLUCOSE, POC Routine 12/19/2018 12/19/2018 Bon 7:35 AM EDT 11:35:00 AM [facility] GLUCOSE, POC GLUCOSE, POC Routine 12/19/2018 12/19/2018 Bon 7:03 AM EDT 11:03:00 AM [facility] [employer] [facility] PROTHROMBIN TIME + PROTHROMBIN TIME + Routine 12/19/2018 12/19/2018 Bon INR INR 3:28 AM EDT 07:28:00 AM [facility] HC RENAL FUNCTION HC RENAL FUNCTION Routine 12/19/2018 0 12/19/2018 Bon PANEL PANEL 3:28 AM EDT 07:28:00 AM [facility] [employer] [facility] MAGNESIUM MAGNESIUM Routine 12/19/2018 12/19/2018 Bon 3:28 AM EDT 07:28:00 AM [facility] [employer] [facility] HC GLUCOSE POCT HC GLUCOSE POCT Routine 12/19/201812/19 Bon 2:04 AM EDT 06:04:00 AM [facility] [employer]1 [facility] PROTHROMBIN TIME + PROTHROMBIN TIME + STAT 12/18/2018 12/18/2018 Bon INR INR 1:45 PM EDT 05:45:00 PM [facility] GLUCOSE, POC GLUCOSE, POC Routine 12/18/2018 12/18/2018 Bon 1:35 PM EDT 05:35:00 PM [facility] [employer] XR CHEST PORT XR CHEST PORT Routine 12/18/2018 9 Bon 12:52 PM 04:52:19 PM Sec [facility] [employer] HC GLUCOSE POCT HC GLUCOSE POCT Routine 12/18/201812/18 Bon 5:29 AM EDT 09:29:00 AM [facility] [employer] HC RENAL FUNCTION HC RENAL FUNCTION Routine 12/18/2018 0 12/18/2018 Bon PANEL PANEL 4:21 AM EDT 08:21:00 AM [facility] [employer] MAGNESIUM MAGNESIUM Routine 12/18/2018 12/18/2018 Bon 4:21 AM EDT 08:21:00 AM [facility] [employer] CTA UP EXT LT W CTA UP EXT LT W STAT 12/18/201812/18 Bon CONT CONT 2:43 AM EDT 06:43:45 AM [facility] [employer] CT CHEST WO CONT CT CHEST WO CONT Routine 12/18/201808/2018 Bon 2:43 AM EDT 06:43:29 AM [facility] GLUCOSE, POC GLUCOSE, POC Routine 12/17/2018 12/18/2018 Bon 11:55 PM 03:55:00 AM [facility] [employer] GLUCOSE, POC GLUCOSE, POC Routine 12/17/2018 12/17/2018 Bon 6:36 PM EDT 10:36:00 PM [facility] [employer] HC BLOOD GAS W HC BLOOD GAS W Routine 12/17/2018 019 Bon CALC O2/ARTERIAL CALC O2/ARTERIAL 2:43 PM EDT 06 :43:00 PM [facility] [employer] GLUCOSE, POC GLUCOSE, POC Routine 12/17/2018 12/17/2018 Bon 1:28 PM EDT 05:28:00 PM [facility] [employer] GLUCOSE, POC GLUCOSE, POC Routine 12/17/2018 12/17/2018 Bon 5:55 AM EDT 09:55:00 AM [facility] [employer] CBC WITH AUTOMATED CBC WITH AUTOMATED Routine 12/17/2018 12/17/2018 Bon DIFF DIFF 3:01 AM EDT 07:01:00 AM [facility] [employer] HC RENAL FUNCTION HC RENAL FUNCTION Routine 12/17/2018 0 12/17/2018 Bon PANEL PANEL 3:01 AM EDT 07:01:00 AM [facility] [employer]UM MAGNESIUM Routine 12/17/2018 12/17/2018 Bon 3:01 AM EDT 07:01:00 AM [facility] HC GLUCOSE POCT HC GLUCOSE POCT Routine 12/16/201812/17 Bon 11:57 PM 03:57:00 AM Sec ours [facility] GLUCOSE, POC GLUCOSE, POC Routine 12/16/2018 12/16/2018 Bon 5:39 PM EDT 09:39:00 PM [facility] GLUCOSE, POC GLUCOSE, POC Routine 12/16/2018 12/16/2018 Bon 12:17 PM 04:17:00 PM Sec eugene [facility] HC GLUCOSE POCT HC GLUCOSE POCT Routine 12/16/201812/16 Bon 6:34 AM EDT 10:34:00 AM [facility] CBC WITH AUTOMATED CBC WITH AUTOMATED Routine 12/16/2018 12/16/2018 Bon DIFF DIFF 3:17 AM EDT 07:17:00 AM [facility] HC RENAL FUNCTION HC RENAL FUNCTION Routine 12/16/2018 0 12/16/2018 Bon PANEL PANEL 3:17 AM EDT 07:17:00 AM [facility] [employer] MAGNESIUM Routine 12/16/2018 12/16/2018 Bon 3:17 AM EDT 07:17:00 AM [facility] GLUCOSE, POC GLUCOSE, POC Routine 12/15/2018 12/16/2018 Bon 11:28 PM 03:28:00 AM Sec ours [facility] GLUCOSE, POC GLUCOSE, POC Routine 12/15/2018 12/15/2018 Bon 4:09 PM EDT 08:09:00 PM [facility] [employer] HC GLUCOSE POCT HC GLUCOSE POCT Routine 12/15/201812/15 Bon 11:16 AM 03:16:00 PM Sec ours [facility] [place] [employer] HC BLOOD GAS W HC BLOOD GAS W Routine 12/15/2018 019 Bon CALC O2/ARTERIAL CALC O2/ARTERIAL 6:22 AM EDT 10 :22:00 AM [email or web address] CBC WITH AUTOMATED CBC WITH AUTOMATED Routine 12/15/2018 12/15/2018 Bon DIFF DIFF 3:49 AM EDT 07:49:00 AM [email or web address] HC RENAL FUNCTION HC RENAL FUNCTION Routine 12/15/2018 0 12/15/2018 Bon PANEL PANEL 3:49 AM EDT 07:49:00 AM [email or web address] MAGNESIUM MAGNESIUM Routine 12/15/2018 12/15/2018 Bon 3:49 AM EDT 07:49:00 AM [email or web address] HC GLUCOSE POCT HC GLUCOSE POCT Routine 12/14/201812/14 Bon 11:59 AM 03:59:00 PM [facility] [employer] [facility] BLOOD GAS W HC BLOOD GAS W Routine 12/14/2018 019 Bon CALC O2/ARTERIAL CALC O2/ARTERIAL 5:54 AM EDT 09 :54:00 AM [email or web address] CBC WITH AUTOMATED CBC WITH AUTOMATED Routine 12/14/2018 12/14/2018 Bon DIFF DIFF 4:48 AM EDT 08:48:00 AM [email or web address] HC RENAL FUNCTION HC RENAL FUNCTION Routine 12/14/2018 0 12/14/2018 Bon PANEL PANEL 4:48 AM EDT 08:48:00 AM [email or web address] MAGNESIUM MAGNESIUM Routine 12/14/2018 12/14/2018 Bon 4:48 AM EDT 08:48:[email or web address] [address] CHEST WO CONT CT CHEST WO CONT Routine 12/13/2018 Bon 5:54 PM EDT 09:54:43 PM [email or web address] CBC WITH AUTOMATED CBC WITH AUTOMATED Routine 12/13/2018 12/13/2018 Bon DIFF DIFF 4:24 AM EDT 08:24:00 AM [email or web address] HC RENAL FUNCTION HC RENAL FUNCTION Routine 12/13/2018 0 12/13/2018 Bon PANEL PANEL 4:24 AM EDT 08:24:00 AM [email or web address] MAGNESIUM MAGNESIUM Routine 12/13/2018 12/13/2018 Bon 4:24 AM EDT 08:24:00 AM [email or web address] HC LACTIC ACID HC LACTIC ACID Routine 12/13/2018 019 Bon 4:24 AM EDT 08:24:00 AM [facility] HC LACTIC ACID HC LACTIC ACID STAT 12/13/2018 019 Bon 12:30 AM 04:30:00 AM [facility] XR CHEST PORT STAT 12/12/2018 9 Bon 9:35 PM EDT 01:35:17 AM [facility] Node1 [facility] HC BLOOD GAS W HC BLOOD GAS W Routine 12/12/2018 019 Bon CALC O2/ARTERIAL CALC O2/ARTERIAL 8:07 PM EDT 12 :07:00 AM [facility] URINALYSIS W/ RFLX URINALYSIS W/ RFLX STAT 12/12/2018 12/13/2018 Bon MICROSCOPIC MICROSCOPIC 8:04 PM EDT 12:04:00 AM [facility] CULTURE, URINE CULTURE, URINE Routine 12/12/2018 019 Bon 8:04 PM EDT 12:04:00 AM [facility] XR CHEST PORT XR CHEST PORT STAT 12/12/2018 9 Bon 7:51 PM EDT 11:51:36 PM [facility] HC CULTURE BLOOD HC CULTURE BLOOD STAT 12/12/2018 Bon 7:40 PM EDT 11:40:00 PM [facility] HC CULTURE BLOOD HC CULTURE BLOOD STAT 12/12/2018 Bon 7:40 PM EDT 11:40:00 PM [facility] Node1 [facility] PROTHROMBIN TIME + PROTHROMBIN TIME + STAT 12/12/2018 12/12/2018 Bon INR INR 7:40 PM EDT 11:40:00 PM [facility] Node1 [facility] CBC WITH AUTOMATED CBC WITH AUTOMATED STAT 12/12/2018 12/12/2018 Bon DIFF DIFF 7:40 PM EDT 11:40:00 PM [facility] [employer] [facility] HC PARTIAL HC PARTIAL STAT 12/12/2018 12/12/2018 Bon THROMBOPLASTIN/ THROMBOPLASTIN/ 7:40 PM EDT 11:4 0:00 PM [employer] PTT EDT [employer] [facility] HC TROPONIN I HC TROPONIN I STAT 12/12/2018 9 Bon QUANT QUANT 7:40 PM EDT 11:40:00 PM [facility] [employer] [facility] METABOLIC PANEL, METABOLIC PANEL, STAT 12/12/2018 Bon COMPREHENSIVE COMPREHENSIVE 7:40 PM EDT 11:40:00 PM [facility] Node1 [facility] HC LACTIC ACID HC LACTIC ACID STAT 12/12/2018 019 Bon 7:40 PM EDT 11:40:00 PM [facility] CK CK STAT 12/12/2018 12/12/2018 Jeff n 7:40 PM EDT 11:40:00 PM [facility] Node1 [facility] BNP BNP STAT 12/12/2018 12/12/2018 Jeff n 7:40 PM EDT 11:40:00 PM [facility] Node1 [facility] HC GLUCOSE POCT HC GLUCOSE POCT Routine 12/12/201812/12 Bon 7:20 PM EDT 11:20:00 PM [facility] Node1 [facility] EKG, 12 LEAD, EKG, 12 LEAD, STAT 12/12/2018 9 Bon INITIAL INITIAL 7:13 PM EDT 11:13:38 PM [facility] CBC WITH AUTOMATED CBC WITH AUTOMATED Routine 11/27/2018 11/27/2018 Bon DIFF DIFF 6:02 AM EDT 10:02:00 AM [facility] Node1 [facility] METABOLIC PANEL, METABOLIC PANEL, Routine 11/27/2018 Bon BASIC BASIC 6:02 AM EDT 10:02:00 AM [facility] Node1 [facility] MAGNESIUM MAGNESIUM Routine 11/27/2018 11/27/2018 Bon 6:02 AM EDT 10:02:00 AM [facility] MAGNESIUM MAGNESIUM Routine 11/26/2018 11/26/2018 Bon 5:06 AM EDT 09:06:00 AM [facility] [employer] [facility] HC VANCOMYCIN HC VANCOMYCIN Timed 11/25/2018 9 Bon TROUGH TROUGH 10:50 PM 02:50:00 AM [facility] [employer] [facility] CBC WITH AUTOMATED CBC WITH AUTOMATED Routine 11/25/2018 11/25/2018 Bon DIFF DIFF 9:55 AM EDT 01:55:00 PM [facility] [employer] METABOLIC PANEL, METABOLIC PANEL, Routine 11/25/2018 Bon COMPREHENSIVE COMPREHENSIVE 9:55 AM EDT 01:55:00 PM [facility] [employer] MAGNESIUM MAGNESIUM Routine 11/25/2018 11/25/2018 Bon 9:55 AM EDT 01:55:00 PM [facility] [employer] HC BLOOD GAS W HC BLOOD GAS W Routine 11/25/2018 019 Bon CALC O2/ARTERIAL CALC O2/ARTERIAL 9:06 AM EDT 01 :06:00 PM [facility] [employer] XR CHEST SNGL V XR CHEST SNGL V Routine 11/25/201811/25 Bon 7:22 AM EDT 11:22:40 AM [email or web address] CBC WITH AUTOMATED CBC WITH AUTOMATED Routine 11/24/2018 11/24/2018 Bon DIFF DIFF 8:10 AM EDT 12:10:00 PM [facility] [employer] METABOLIC PANEL, METABOLIC PANEL, Routine 11/24/201803/2019 Bon COMPREHENSIVE COMPREHENSIVE 8:10 AM EDT 12:10:00 PM [facility] [employer] MAGNESIUM MAGNESIUM Routine 11/24/2018 11/24/2018 Bon 8:10 AM EDT 12:10:00 PM [email or web address] CBC WITH AUTOMATED CBC WITH AUTOMATED Routine 11/23/2018 11/23/2018 Bon DIFF DIFF 5:40 AM EDT 09:40:00 AM [facility] [employer] METABOLIC PANEL, METABOLIC PANEL, Routine 11/23/201802/2019 Bon COMPREHENSIVE COMPREHENSIVE 5:40 AM EDT 09:40:00 AM [email or web address] MAGNESIUM MAGNESIUM Routine 11/23/2018 11/23/2018 Bon 5:40 AM EDT 09:40:00 AM [email or web address] HC BLOOD GAS W HC BLOOD GAS W Routine 11/22/2018 019 Bon CALC O2/ARTERIAL CALC O2/ARTERIAL 12:35 PM 04:35 :00 [facility] [employer] XR ABD (KUB) XR ABD (KUB) Routine 11/22/2018 11/22/2018 Bon 8:03 AM EDT 12:03:33 PM [facility] [employer] [facility] XR CHEST SNGL V XR CHEST SNGL V Routine 11/22/201811/22 Bon 8:03 AM EDT 12:03:33 PM [facility] CBC WITH AUTOMATED CBC WITH AUTOMATED Routine 11/22/2018 11/22/2018 Bon DIFF DIFF 6:00 AM EDT 10:00:00 AM [facility] [employer] [facility] METABOLIC PANEL, METABOLIC PANEL, Routine 11/22/201801/2019 Bon COMPREHENSIVE COMPREHENSIVE 6:00 AM EDT 10:00:00 AM [facility] MAGNESIUM MAGNESIUM Routine 11/22/2018 11/22/2018 Bon 6:00 AM EDT 10:00:00 AM [facility] [employer] [facility] XR ABD PORT 1 V XR ABD PORT 1 V Routine 11/21/201812/2018 Bon 4:52 AM EDT 08:52:21 AM [facility] [employer] [facility] XR CHEST PORT XR CHEST PORT Routine 11/21/2018 9 Bon 4:50 AM EDT 08:50:36 AM [facility] CBC WITH AUTOMATED CBC WITH AUTOMATED Routine 11/21/2018 11/21/2018 Bon DIFF DIFF 4:20 AM EDT 08:20:00 AM [facility] METABOLIC PANEL, METABOLIC PANEL, Routine 11/21/201812/2018 Bon COMPREHENSIVE COMPREHENSIVE 4:20 AM EDT 08:20:00 AM [facility] [employer] [facility] MAGNESIUM MAGNESIUM Routine 11/21/2018 11/21/2018 Bon 4:20 AM EDT 08:20:00 AM [facility] CBC WITH AUTOMATED CBC WITH AUTOMATED Routine 11/20/2018 11/20/2018 Bon DIFF DIFF 4:16 PM EDT 08:16:00 PM [facility] XR ABD PORT 1 V XR ABD PORT 1 V Routine 11/20/201811/2018 Bon 11:55 AM 03:55:57 PM [facility] HC VANCOMYCIN HC VANCOMYCIN Routine 11/20/2018 9 Bon TROUGH TROUGH 11:10 AM 03:10:00 PM [employer] [facility] CULTURE, URINE CULTURE, URINE Routine 11/20/2018 019 Bon 9:00 AM EDT 01:00:00 PM [facility] [employer] [facility] CBC WITH AUTOMATED CBC WITH AUTOMATED Routine 11/20/2018 11/20/2018 Bon DIFF DIFF 4:00 AM EDT 08:00:00 AM [facility] METABOLIC PANEL, METABOLIC PANEL, Routine 11/20/201811/2018 Bon COMPREHENSIVE COMPREHENSIVE 4:00 AM EDT 08:00:00 AM [facility] MAGNESIUM MAGNESIUM Routine 11/20/2018 11/20/2018 Bon 4:00 AM EDT 08:00:00 AM [facility] HC GLUCOSE POCT HC GLUCOSE POCT Routine 11/19/201811/20 Bon 10:07 PM 02:07:00 AM [facility] CBC W/O DIFF CBC W/O DIFF Routine 11/19/2018 11/19/2018 Bon 7:43 PM EDT 11:43:00 PM [facility] Node1 [facility] METABOLIC PANEL, METABOLIC PANEL, Routine 11/19/201810/2018 Bon COMPREHENSIVE COMPREHENSIVE 7:43 PM EDT 11:43:00 PM [facility] Node1 [facility] XR ABD (KUB) XR ABD (KUB) Routine 11/19/2018 11/19/2018 Bon 4:05 PM EDT 08:05:00 PM [facility] Node1 [facility] HC BLOOD GAS W HC BLOOD GAS W Routine 11/19/2018 019 Bon CALC O2/ARTERIAL CALC O2/ARTERIAL 12:41 PM 04:41 :00 PM [facility] Node1 [facility] XR CHEST PORT XR CHEST PORT Routine 11/19/2018 9 Bon 11:06 AM 03:06:07 PM [facility] Node1 [facility] CBC WITH AUTOMATED CBC WITH AUTOMATED Routine 11/19/2018 11/19/2018 Bon DIFF DIFF 6:05 AM EDT 10:05:00 AM [facility] Node1 [facility] METABOLIC PANEL, METABOLIC PANEL, Routine 11/19/201810/2018 Bon COMPREHENSIVE COMPREHENSIVE 6:05 AM EDT 10:05:00 AM [facility] MAGNESIUM MAGNESIUM Routine 11/19/2018 11/19/2018 Bon 6:05 AM EDT 10:05:00 AM [facility] CBC WITH AUTOMATED CBC WITH AUTOMATED Routine 11/18/2018 11/18/2018 Bon DIFF DIFF 7:42 AM EDT 11:42:00 AM [facility] METABOLIC PANEL, METABOLIC PANEL, Routine 11/18/201809/2018 Bon COMPREHENSIVE COMPREHENSIVE 7:42 AM EDT 11:42:00 AM [facility] MAGNESIUM MAGNESIUM Routine 11/18/2018 11/18/2018 Bon 7:42 AM EDT 11:42:00 AM [facility] GASTROSTOMY TUBE GASTROSTOMY TUBE 11/17/2018 failure 08/2018 Bon PLACEMENT (OPEN) PLACEMENT (OPEN) 12:59 PM to thrive 04: 59:00 PM [facility] 11/17/2018 Healt h 06:53:00 PM [employer] CBC WITH AUTOMATED CBC WITH AUTOMATED Routine 11/17/2018 11/17/2018 Bon DIFF DIFF 6:06 AM EDT 10:06:00 AM [facility] PHOSPHORUS PHOSPHORUS Routine 11/17/2018 11/17/2018 Bon 6:06 AM EDT 10:06:00 AM [facility] METABOLIC PANEL, METABOLIC PANEL, Routine 11/17/201808/2018 Bon COMPREHENSIVE COMPREHENSIVE 6:06 AM EDT 10:06:00 AM [facility] MAGNESIUM MAGNESIUM Routine 11/17/2018 11/17/2018 Bon 6:06 AM EDT 10:06:00 AM [facility] CBC WITH AUTOMATED CBC WITH AUTOMATED Routine 11/16/2018 11/16/2018 Bon DIFF DIFF 7:25 AM EDT 11:25:00 AM [facility] PHOSPHORUS PHOSPHORUS Routine 11/16/2018 11/16/2018 Bon 7:25 AM EDT 11:25:00 AM [facility] METABOLIC PANEL, METABOLIC PANEL, Routine 11/16/201807/2018 Bon COMPREHENSIVE COMPREHENSIVE 7:25 AM EDT 11:25:00 AM [facility] MAGNESIUM MAGNESIUM Routine 11/16/2018 11/16/2018 Bon 7:25 AM EDT 11:25:00 AM [facility] [employer] [facility] CBC WITH AUTOMATED CBC WITH AUTOMATED Routine 11/15/2018 11/15/2018 Bon DIFF DIFF 5:55 AM EDT 09:55:00 AM [facility] PHOSPHORUS PHOSPHORUS Routine 11/15/2018 11/15/2018 Bon 5:55 AM EDT 09:55:00 AM [facility] [employer] [facility] METABOLIC PANEL, METABOLIC PANEL, Routine 11/15/201806/2018 Bon COMPREHENSIVE COMPREHENSIVE 5:55 AM EDT 09:55:00 AM [facility] [employer] [facility] MAGNESIUM MAGNESIUM Routine 11/15/2018 11/15/2018 Bon 5:55 AM EDT 09:55:00 AM [facility] CBC WITH AUTOMATED CBC WITH AUTOMATED Routine 11/14/2018 11/14/2018 Bon DIFF DIFF 5:33 AM EDT 09:33:00 AM [facility] [employer] [facility] PHOSPHORUS PHOSPHORUS Routine 11/14/2018 11/14/2018 Bon 5:33 AM EDT 09:33:00 AM [facility] METABOLIC PANEL, METABOLIC PANEL, Routine 11/14/201805/2018 Bon COMPREHENSIVE COMPREHENSIVE 5:33 AM EDT 09:33:00 AM [facility] [employer] [facility] MAGNESIUM MAGNESIUM Routine 11/14/2018 11/14/2018 Bon 5:33 AM EDT 09:33:00 AM [facility] Node1 [facility] 2D ECHO COMPLETE 2D ECHO COMPLETE Routine 11/14/201805/2018 Bon ADULT (TTE) W OR ADULT (TTE) W OR 12:00 AM 04:00 :00 AM [facility] WO CONTRAST WO CONTRAST [facility]De[facility] System[facility] CBC WITH AUTOMATED CBC WITH AUTOMATED Routine 11/13/2018 11/13/2018 Bon DIFF DIFF 6:35 AM EDT 10:35:00 AM [facility] [employer] [facility] PHOSPHORUS PHOSPHORUS Routine 11/13/2018 11/13/2018 Bon 6:35 AM EDT 10:35:00 AM [facility] [employer] [facility] METABOLIC PANEL, METABOLIC PANEL, Routine 11/13/201804/2018 Bon COMPREHENSIVE COMPREHENSIVE 6:35 AM EDT 10:35:00 AM [facility] MAGNESIUM MAGNESIUM Routine 11/13/2018 11/13/2018 Bon 6:35 AM EDT 10:35:00 AM [facility] [employer] [facility] CBC WITH AUTOMATED CBC WITH AUTOMATED Routine 11/12/2018 11/12/2018 Bon DIFF DIFF 7:20 AM EDT 11:20:00 AM [facility] [employer] [facility] PHOSPHORUS PHOSPHORUS Routine 11/12/2018 11/12/2018 Bon 7:20 AM EDT 11:20:00 AM [facility] [employer] [facility] METABOLIC PANEL, METABOLIC PANEL, Routine 11/12/2018 Bon COMPREHENSIVE COMPREHENSIVE 7:20 AM EDT 11:20:00 AM [facility] MAGNESIUM MAGNESIUM Routine 11/12/2018 11/12/2018 Bon 7:20 AM EDT 11:20:00 AM [facility] [employer] [facility] HC LACTIC ACID HC LACTIC ACID Routine 11/12/2018 019 Bon 7:20 AM EDT 11:20:00 AM [facility] [employer] [facility] METABOLIC PANEL, METABOLIC PANEL, Routine 11/11/2018 Bon COMPREHENSIVE COMPREHENSIVE 6:48 AM EDT 10:48:00 AM [facility] CBC WITH AUTOMATED CBC WITH AUTOMATED Routine 11/10/2018 11/10/2018 Bon DIFF DIFF 5:28 AM EDT 09:28:00 AM [facility] [employer] [facility] METABOLIC PANEL, METABOLIC PANEL, Routine 11/10/2018 Bon COMPREHENSIVE COMPREHENSIVE 5:28 AM EDT 09:28:00 AM [facility] HC EIA QL 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 SUPERVISOR HC EIA QL NIGHT SUPERVISOR Routine 11/09/2018 9 Bon STREP GROUPB AG STREP GROUPB AG 7:00 AM EDT 11:0 0:00 AM [facility] [employer] [facility] PROTHROMBIN TIME + PROTHROMBIN TIME + Routine 11/09/2018 11/09/2018 Bon INR INR 6:20 AM EDT 10:20:00 AM [facility] CBC WITH AUTOMATED CBC WITH AUTOMATED Routine 11/09/2018 11/09/2018 Bon DIFF DIFF 6:20 AM EDT 10:20:00 AM [facility] METABOLIC PANEL, METABOLIC PANEL, Routine 11/09/2018 Bon COMPREHENSIVE COMPREHENSIVE 6:20 AM EDT 10:20:00 AM [facility] [employer] MAGNESIUM MAGNESIUM Routine 11/09/2018 11/09/2018 Bon 6:20 AM EDT 10:20:00 AM [facility] [employer] URINALYSIS W/ RFLX URINALYSIS W/ RFLX Routine 11/09/2018 11/09/2018 Bon MICROSCOPIC MICROSCOPIC 5:00 AM EDT 09:00:00 AM [facility] [employer] HC LACTIC ACID HC LACTIC ACID Routine 11/08/2018 019 Bon 8:20 PM EDT 12:20:00 AM [facility] [employer] HC EIA QL SGL HC EIA QL SGL Routine 11/08/2018 9 Bon ANTIGEN ANTIGEN 11:45 AM 03:45:00 PM [facility] EDDeaconess Incarn[facility] Word Health SystemAssertID TROPONIN I TROPONIN I Timed 11/08/2018 11/08/2018 Bon 8:14 AM EDT 12:14:00 PM [facility] [employer] HC LACTIC ACID HC LACTIC ACID Routine 11/08/2018 019 Bon 8:13 AM EDT 12:13:00 PM [facility] [employer] CBC WITH AUTOMATED CBC WITH AUTOMATED Routine 11/08/2018 11/08/2018 Bon DIFF DIFF 7:20 AM EDT 11:20:00 AM [facility] [employer] HC TROPONIN I HC TROPONIN I Timed 11/08/2018 9 Bon QUANT QUANT 7:20 AM EDT 11:20:00 AM [facility] [employer] MAGNESIUM MAGNESIUM Routine 11/08/2018 11/08/2018 Bon 7:20 AM EDT 11:20:00 AM [facility] [employer] HC LACTIC ACID HC LACTIC ACID STAT 11/08/2018 019 Bon 3:40 AM EDT 07:40:00 AM [employer] CTA CHEST W OR W CTA CHEST W OR W STAT 11/08/2018 Bon WO CONT WO CONT 12:25 AM 04:25:32 AM [employer] [facility] EDT [employer] HC BLOOD GAS W HC BLOOD GAS W Routine 11/07/2018 019 Bon CALC O2/ARTERIAL CALC O2/ARTERIAL 9:23 PM EDT 01 :23:00 AM [facility] Node1 [facility] HC CULTURE BLOOD HC CULTURE BLOOD STAT 11/07/2018 Bon 8:10 PM EDT 12:10:00 AM [facility] [employer] [facility] PROTHROMBIN TIME + PROTHROMBIN TIME + STAT 11/07/2018 11/08/2018 Bon INR INR 8:10 PM EDT 12:10:00 AM [facility] [employer] [facility] CBC WITH AUTOMATED CBC WITH AUTOMATED STAT 11/07/2018 11/08/2018 Bon DIFF DIFF 8:10 PM EDT 12:10:00 AM [facility] Node1 [facility] HC PARTIAL HC PARTIAL STAT 11/07/2018 11/08/2018 Bon THROMBOPLASTIN/ THROMBOPLASTIN/ 8:10 PM EDT 12:1 0:00 AM [facility] [employer] [facility] HC TROPONIN I HC TROPONIN I STAT 11/07/2018 9 Bon QUANT QUANT 8:10 PM EDT 12:10:00 AM [facility] METABOLIC PANEL, METABOLIC PANEL, STAT 11/07/2018 Bon COMPREHENSIVE COMPREHENSIVE 8:10 PM EDT 12:10:00 AM [facility] Node1 [facility] MAGNESIUM MAGNESIUM STAT 11/07/2018 11/08/2018 Bon 8:10 PM EDT 12:10:00 AM [facility] [employer] [facility] HC LACTIC ACID HC LACTIC ACID STAT 11/07/2018 019 Bon 8:10 PM EDT 12:10:00 AM [facility] Node1 [facility] BNP BNP STAT 11/07/2018 11/08/2018 Jeff n 8:10 PM EDT 12:10:00 AM [facility] HC CULTURE BLOOD HC CULTURE BLOOD STAT 11/07/2018 Bon 8:00 PM EDT 12:00:00 AM [facility] XR CHEST PORT XR CHEST PORT STAT 11/07/2018 9 Bon 7:55 PM EDT 11:55:48 PM [facility] Hospital[facility] RT--OXYGEN CANNULA RT--OXYGEN CANNULA STAT 11/07/2018 11/07/2018 Bon 7:27 PM EDT 11:27:29 PM [facility] EKG, 12 LEAD, EKG, 12 LEAD, STAT 11/07/2018 9 Bon INITIAL INITIAL 7:15 PM EDT 11:15:[address] [facility] Results ID Date Data Source [id number] 01/04/2020 12:00:00 AM EDT [facility] Name Value Range Interpretation Code Description Data Harriett rce(s) Supporting Document(s ) 2018-nCoV [facility] RNA XXX DAVID+probe- Imp This lab was [facility] [employer] [facility] and reported by [employer] ID Date Data Source [id number] 12/31/2019 10:30:00 AM EDT [facility] Name Value Range Interpretation Description Data Sup porting Code Source(s) Document(s ) SARS [facility] coronavirus 2 RNA This lab was ordered by [facility] and reported by [facility]. ID Date Data Source [id number] 12/22/2019 10:45:00 AM EDT [facility] Name Value Range Interpretation Description Data Sup porting Code Source(s) Document(s ) SARS [facility] coronavirus 2 RNA This lab was ordered by [facility] and reported by [facility]. ID Date Data Source [id number] 12/05/2019 10:35:00 AM EDT [facility] Name Value Range Interpretation Description Data Sup porting Code Source(s) Document(s ) SARS [facility] coronavirus 2 RNA This lab was ordered by [facility] and reported by [facility]. ID Date Data Source [id number] 12/03/2019 12:00:00 AM EDT [facility] Name Value Range Interpretation Code Description Data Harriett rce(s) Supporting Document(s ) 2018-nCoV [facility] RNA XXX DAVID+probe- Imp This lab was ordered by [facility] [employer] and reported by [employer] ID Date Data Source [id number] 12/01/2019 12:56:00 PM EDT [facility] Name Value Range Interpretation Code Description Data Harriett rce(s) Supporting Document(s ) SARS-CoV-2 [facility] RNA [facility] Ql DAVID+probe This lab was ordered by [facility] a nd reported by [facility]. ID Date Data Source [id number] 11/11/2019 01:42:00 PM EDT [facility] System Name Value Range Interpretation Code Description Data Harriett rce(s) Supporting Document(s ) SARS-CoV-2 [facility] Ql DAVID+probe This lab was ordered by [facility] a nd reported by [facility]. ID Date Data Source [id number] 10/25/2019 03:06:14 PM EDT [facility] Progress NotePatient: Evelio Carlin Sex: male DOA: 11/07/2018Date of : 1950 Age: 68 y.o. :[id number]:Reyes Carlin is 68 y.o. male .who was sent to the ED for hypoxia, with O2SAT of 84 % o n room air, respiratory distress, COPD exacerbation and Pneumonia.He has medica l h/o COPD, requiring intermittent O2 NC, large hiatal hernia,GERD, recurrent aspi ration pneumonia, dysphagia, parkinson disease, epilepsy,(focal),(partial) and Idiopathic, not intractable. Severe intellectualdisability, hyperparathyroid , unspecified, personal h/o pulmonary embolus,anxiety disorder, kyphosis and s chizophrenia.The pt was placed on BIPAP.CTA chest was neg for pulm embolism. Showing decreased size of the rt hemithoraxfrom chronic scarring and retraction with med iastinal shift left to rt.Additional area of consolidation is seen in the RLL an sugg ests superimposedpneumonia with subsegmental atelectasis. Low lung volumes are seen. Labs were remarkable for lactic acidosis as high as 4.1.The pt was admitted with ini tial encounter diag of Acute hypercapnia, hypoxicrespiratory failure, COPD Exacerb ation, Sepsis- POA, Aspiration Pneumonia,atelectasis and Metabolic acid osis. Also, diag of dysphagia, s/p peg placement,seizure, hyperparathyroid, uns pecified and intellectual disability are pertinentto this visit.Pt was restless o vernight, given iv ativan 0.5 mg with improvement.Pt failed the bedside swallo w re eval and the staff has had unsuccessfulattempts at ngt insertion. S een by gi rec surgical placement of the feeding tube.The pt is nonverbal and is unable to provide a history. He is breathing better. No events overnight. Surgery shilo audi out to family for informed consent; in order to proceed withsurgical gastrostom y tube poss jejunostomy tube placement. Pt is s/p placement of surgical gastrostomy tube and trimming of the toe andfingernails on 11/17/2018.He is afebrileWBC up to 25.4 Pt found in acute resp distress by pulmonary, placed on BIPAP and transferred toMICU. CXR dated 11/19 with findings of large air distended stomach, unchanged. Newpatchy opacity at the rt lung base may be infiltrative or atelectatic in nature.Fe w left basilar streaks are noted. + coffee ground emesisPeg hung to gravity.WBC costa nding down to 21,000 -->17K WBCs cont to trend down.AXR dated 11/20 increase of sma ll bowel ileusAXR dated 11/21 interval decrease in bowel distention. Increased stool in rectalregion.Seen by gi noting that coffee ground material on yesterday, suspect wa s due tostress gastritis. Rec monitor CBC ,PPI, TWE and cont g tube to LIWS PT is sandhya TF. 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 Pupils are equalNeck: Supple, symmetrical, no stephanie nopathy, no carotid bruit and no JVD.Lungs: Clear to auscultation bilaterally. No Wheezing or Rhonchi. No rales.Chest wall: No Accessory muscle use.Heart: Regular rate and rhythm, no murmur, rub or gallop.Abdomen: Soft, non-tender. Not distended. Bowel sounds normal. No massesExtremities: Extremities normal, a traumatic, No cyanosis. No edema. No clubbingSkin: Warm and dry. No rash es or lesions. Not JaundicedLymph nodes: Cervical, supraclavicular normal.Psych: Not anxious or agitated.Neurologic: EOMs intact. No facial asymmetry. Non verbal, generalized weakness,Awake and Alert.Intake and Output:Current Shift: 11/27 700 - 11/27 1899In: -Out: 2975 [Urine:2975]Last three shifts: 11/25 1900 - 11/27 699In : 2535 [I.V.:100]Out: 3250 [Urine:3250]Lab/Data Reviewed:Recent Day s: CBC w/DiffRecent Labs 11/25/1907WBC 13.7* 13.8*HGB 14.9 13.7 *HCT 42.8 39.4*MCV 96.2* 94.0PLT 206 198GRANS 69 87*LYMPH 24 8*EOS 2 0ChemistryRecent Labs 11/25/1908GLU 102 -- 154*NA 142 -- 139K 3.4* -- 3.4*CL 99 -- 98CO2 38* 43* 36*BUN 11 -- 9CREA 0.41* -- 0.31* Re cent Labs 11/25/1907CA 9.3 9.5ALB 2.7* 2.7*TBILI 0.6 0.6AP 99 85SGO T 15 13*ALT 25 25Coagulation No results for input(s): PTP, INR, APTT in the last 72 hours. No lab exists for component: INREXT Recent Labs 906PH 7.50*PCO2 53 *PO2 69*HCO3 41*Xr Chest Sngl VResult Date: 11/25/2018AP portable film of the chest c linical indication pneumonia Study is compared toprevious examination of Augus t 2018. Study demonstrates a left pleuraleffusion as well as infiltrate at the left base. This was present on previousstudy. There has been interval d evelopment of a small right pleural effusionwith linear streaking at the rig ht base this may represent infiltrate oratelectasis. Heart size difficult to e valuate.IMPRESSION: Infiltrate left base with pleural effusion, right pleural effusion with streaking at right lower lung field which may represent infiltrate oratelect asisXr Chest Sngl VResult Date: 11/22/2018History: PNEUMONIA Technique: P ortable chest x-ray 11/22/2018 8:03 AM Comparison:11/21/2018. FINDINGS: The exam is rotated. There is a small left pleural effusionwith probable infiltrate or atel ectasis. There is improved aeration of the rightlung since the prior. Evaluation of the cardiac silhouette is limited byprojection. The visualized osseous str uctures appear unremarkable.IMPRESSION: There is a small left pleural effusion with pr obable infiltrate oratelectasis. There is improved aeration of the right lung sinc e the prior.Xr Abd (kub)Result Date: 11/22/2018EXAM: XR ABD (KUB) INDICATION: ileus COMPARISON: None. FINDINGS: A supineradiograph of the abdomen shows a normal bowel gas pattern. No soft tissuemasses or pathologic calcification s are identified. The bones and soft tissuesare within normal limits. There i s moderate fecal material overlying the pelvis.There are skin kalpana along the midline.IMPRESSION: No dilated loops of bowel are identified to suggest obstruction.Xr Abd (kub)Result Date: 11/19/2018XR ABD (KUB)-SINGLE VIEW PRIOR: None HISTORY: E valuate for G-tube placementFINDINGS: The examination is limited-the pt is in an R AO/LPO position. A tubeoverlies the abdomen extending from the right lower quadrant to the left upperquadrant and whether this represents a gastric tube cannot be defi nitivelydetermined. The bowel gas pattern is nonspecific. No abnormally dilated loop ofbowel, bowel wall thickening, pneumatosis or free air is identified. No abnormalde nsities or calcifications are identified. There are midline surgical skinstaples i dentified. The visualized osseous structures are unremarkable.IMPRESSION: 1. Tube ov erlying the abdomen terminating in the region of stomach;as described and discussed ab ove on this single oblique view the exact locationof this tube cannot be determine d. 2. Otherwise unremarkable abdomen/KUB.Cta Chest W Or W Wo ContResult Date: 11/09/19 19Examination: CTA Chest ? PE angiography History: Hypoxia; rule out pneumoniavers us pulmonary embolism Priors: None Technique: Low-dose, multiplanar,helica l CTA chest was performed with bolus IV injection from lung apices tobases. 3D- reformatted images were obtained and reviewed on a dedicated viewingworkstation and di rectly supervised. Contrast: A total of 71 mL of Isovue-370was administered intravenou sly for this procedure. Findings: No evidence ofpulmonary embolism is seen. T here is decreased size of the right hemithorax fromchronic scarring and retr action with mediastinal shift left to right.Additional area of consolidation i s seen in the right lower lobe and suggestssuperimposed pneumonia with subs egmental atelectasis. Subsegmental atelectasisis also noted in the left jorge g base, with pleural parenchymal scarring. Lowlung volumes are seen. No pneumothora x seen. Aorta normal in caliber withoutaneurysm or dissection. Mediastin um no adenopathy. Mediastinal shift is seen inthe left and right as a result of chr onic changes in the right hemithorax.Heart shows no chamber enlargement or pericard ial effusion. No acute fracturesseen in the bony thorax, sternum, manubrium and rib cage. Multiple compressiondeformities are seen in the mid and lower thoracic spine , with superimposedspondyloarthropathy. Cannot exclude acute fracture.Impression : No evidence of pulmonary embolism Right lower lobe pneumoniasuggested. Incidenta l scarring and retraction in the right hemithorax fromremote/chronic inflammato ry disease and/or trauma. Bibasilar subsegmentalatelectasis. Report Electron zohaiby Signed By: Pawel Zafar M.D. -11/08/2018 12:40 AMXr Chest PortResult D ate: 11/21/2018AP portable film of the chest clinical indication pneumonia Study is c ompared toprevious examination of November 19, 2018. There has been partial clearing o fstreaky changes seen at the right base. There has been interval development ofso me haziness at the left base as well as elevation of the left leaf of thediaphra gm. Heart size is difficult to evaluate.IMPRESSION: 1. Partial clearing of streaks at right base. 2. Haziness at leftbase which may represent infiltrateX r Chest PortResult Date: 11/19/2018History: Respiratory difficulty. FINDINGS: A fron krystian portable view of the chestis compared to the prior study of 11/07/2016. A large ga s-filled structure isnoted beneath the left diaphragm, unchanged, likely representin g the stomach.The cardiac silhouette is normal in size. There is again noted to be shift ofmediastinal structures to the right. There are some streaky and patchy changesat the right lung base not seen on the prior study and the possibility ofin filtrative change cannot be excluded. A few nonspecific left basilar streaksare note d as well. Prominence of the right hilum is unchanged and may merely carlos enrique a result o f the shift of mediastinal structures.IMPRESSION: New patchy opacit y at the right lung base may be infiltrative oratelectatic in nature. Few left basila r streaks are noted as well. Otherwisefindings similar.Xr Chest PortR esult Date: 11/07/2018XR CHEST PORT CLINICAL INDICATION PROVIDED:. "sob." COMPARISON: . 09/26/2015.FINDINGS:. The pericardial/cardiac silhouette is enlarg ed in the transversedimension. There is no pulmonary vascular congestion or interst itial edema.Linear density in the left lung base and faint densities in the right mi d tolower lung likely represent atelectasis. There is no lobar consolidation oreffusi on. There is no pneumothorax.IMPRESSION:. Bilateral lower lung atelectasis. No donna dence of consolidation oreffusion.Xr Abd Port 1 VResult Date: 11/21/2018Abdomen 2 views clinical indication ileus Study is compared to previousexamination of November 20, 2018 . There has been an interval decrease in boweldistention. Increased stool is note d in the rectal region. Skin clips are againnoted.IMPRESSION: 1. Interval decre ase in bowel distention. 2. Increased stool inrectal regionXr Abd Port 1 VResult Da te: 11/20/2018KUB one view(s) History: Ileus. Comparison: Yesterday. There is diffuse ileusof the small and large bowel which has increased involving the small bowel. Air and fecal material is noted in the rectosigmoid colon. The cecum appears to bein the right hemiabdomen but is otherwise unchanged. There is no evidence ofobstru ction, radiopaque gallstones, or kidney stones. The previously noted tubeoverlyi ng the abdomen is no longer seen.IMPRESSION: Increase of small bowel ileus.Medication s reviewedAssessment/Plan:Hospital Problems Date Reviewed: 11/27/2018 Codes Cla ss Noted POA COPD (chronic obstructive pulmonary disease) (HCC) ICD-10-CM: J44. 9ICD-9-CM: 496 11/08/2018 Unknown Acute respiratory distress ICD-10-CM: R06.03IC D-9-CM: 518.82 11/08/2018 Unknown Pneumonia ICD-10-CM: J18.9ICD-9-CM: 486 11/08/2018 Unknown COPD exacerbation (HCC) ICD-10-CM: J44.1ICD-9-CM: 491.21 11/08/2018 Unknown Assessment:Serous drainage from marvel peg site. S/p placement of provena dressinga nd wound vacIleus - ResolvedTF restarted by surgeon todayGastrostomy tube placement on 11/17/2018DysphagiaAcute Respiratory failurePE ruled outPost op Leukocytosis- trending downAcute Hypercapnia, Hypoxic respiratory failureRule out sepsis- Cult ures NGTDMetabolic acidosis- Resolved Pneumonia- RLL Acute COPD exacerbationH/ o large hiatal herniaGERDSeizureSevere intellectual disabilityAnxiety disorderL eukocytosis- resolvingChronic Schizophrenia -HypokalemiaPlan: TF restarted. Cont O2 NC/Bipap per pulm Still on Solu MedrolTo maintain negative pressure on the wound andmonitor drainage per surgeonSurgery f/u Continue PPI Off IV zosyn and Vancomycin nebsF/u culturesdvt prophylaxis with heparin subcutMitts restraints, prnReplace potas sium Discharge Planningkinjal ReinierRenae 2018Time: 5:13 PM Name Value Range Interpretation Code Description Data Harriett rce(s) Supporting Document(s ) ID Date Data Source [id number] 10/25/2019 02:46:50 PM EDT [facility] Progress NotePatient: Evelio Carlin Sex: male DOA: 11/07/2018Date of : 1950 Age: 68 y.o. :[id number]:Reyes Carlin is 68 y.o. male .who was sent to the ED for hypoxia, with O2SAT of 84 % o n room air, respiratory distress, COPD exacerbation and Pneumonia.He has medica l h/o COPD, requiring intermittent O2 NC, large hiatal hernia,GERD, recurrent aspi ration pneumonia, dysphagia, parkinson disease, epilepsy,(focal),(partial) and Idiopathic, not intractable. Severe intellectualdisability, hyperparathyroid , unspecified, personal h/o pulmonary embolus,anxiety disorder, kyphosis and s chizophrenia.The pt was placed on BIPAP.CTA chest was neg for pulm embolism. Showing decreased size of the rt hemithoraxfrom chronic scarring and retraction with med iastinal shift left to rt.Additional area of consolidation is seen in the RLL an sugg ests superimposedpneumonia with subsegmental atelectasis. Low lung volumes are seen. Labs were remarkable for lactic acidosis as high as 4.1.The pt was admitted with ini tial encounter diag of Acute hypercapnia, hypoxicrespiratory failure, COPD Exacerb ation, Sepsis- POA, Aspiration Pneumonia,atelectasis and Metabolic acid osis. Also, diag of dysphagia, s/p peg placement,seizure, hyperparathyroid, uns pecified and intellectual disability are pertinentto this visit.Pt was restless o vernight, given iv ativan 0.5 mg with improvement.Pt failed the bedside swallo w re eval and the staff has had unsuccessfulattempts at ngt insertion. S een by gi rec surgical placement of the feeding tube.The pt is nonverbal and is unable to provide a history. He is breathing better. No events overnight. Surgery shilo audi out to family for informed consent; in order to proceed withsurgical gastrostom y tube poss jejunostomy tube placement. Pt is s/p placement of surgical gastrostomy tube and trimming of the toe andfingernails on 11/17/2018.He is afebrileWBC up to 25.4 Pt found in acute resp distress by pulmonary, placed on BIPAP and transferred toMICU. CXR dated 11/19 with findings of large air distended stomach, unchanged. Newpatchy opacity at the rt lung base may be infiltrative or atelectatic in nature.Fe w left basilar streaks are noted. + coffee ground emesisPeg hung to gravity.WBC costa nding down to 21,000 -->17K WBCs cont to trend down.AXR dated 11/20 increase of sma ll bowel ileusAXR dated 11/21 interval decrease in bowel distention. Increased stool in rectalregion.Seen by gi noting that coffee ground material on yesterday, suspect wa s due tostress gastritis. 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 Pupils are equalNeck: Supple, symmetrical, no adenopathy, no carotid bruit and no JVD.Lungs: Clear to auscultation bilaterally. No Wheezing o r Rhonchi. No rales.Chest wall: No Accessory muscle use.Heart: Regular ra te and rhythm, no murmur, or rubAbdomen: Prevena intact, minimal drainage around peg, Soft, non-tender. Notdistended. Bowel sounds normal. No massesExtremities: Ext remities normal, atraumatic, No cyanosis. No edema. No clubbingSkin: Warm and dry . No rashes or lesions. Not JaundicedLymph nodes: Cervical, supraclavicular normal. Psych: Not anxious or agitated.Neurologic: EOMs intact. No facial asymmetry. Nonver bal Generalized weakness,Alert and Awake.Intake and Output:Current Shift: 11/27 700 - 11/27 1899In: -Out: 2975 [Urine:2975]Last three shifts: 11/25 - 11/27 0700In: 2535 [I.V.:100]Out: 3250 [Urine:3250]Lab/Data Reviewed:Recent Day s:CBC w/DiffRecent Labs 11/23/1904WBC 13.8* 12.6*HGB 13.7* 13. 1*HCT 39.4* 38.8*MCV 94.0 94.9*PLT 198 171GRANS 87* 88*LYMPH 8* 8*EOS 0 0Chemis tryRecent Labs 11/23/1904GLU 154* 147* --NA 139 136 --K 3.4* 3.7 --CL 98 101 --CO2 36* 30 28*BUN 9 10 --CREA 0.31* 0.32* -- Rece nt Labs 11/23/1904CA 9.5 9.8ALB 2.7* 2.5*TBILI 0.6 0.8AP 85 62SGO T 13* 19ALT 25 29Coagulation No results for input(s): PTP, INR, APTT in the last 72 hours. No lab exists for component: INREXT Recent Labs [id number] 7.50*PCO2 53 *PO2 69*HCO3 41*Component Value Date/Time Culture result: NO GROWTH 2 DAYS 019 09:00 AM Culture result: NO GROWTH 5 DAYS 11/07/2018 08:10 PM Culture result : NO GROWTH 5 DAYS 11/07/2018 08:Xr Chest Sngl VResult Date: 11/25/2018AP portable film of the chest clinical indication pneumonia Study is compared toprevious e xamination of November 22, 2018. Study demonstrates a left pleuraleffusion as w ell as infiltrate at the left base. This was present on previousstudy. There has been interval development of a small right pleural effusionwith linear streaking at the right base this may represent infiltrate oratelectasis. Heart size difficult to e valuate.IMPRESSION: Infiltrate left base with pleural effusion, right pleural effusion with streaking at right lower lung field which may represent infiltrate oratelect asisXr Chest Sngl VResult Date: 11/22/2018History: PNEUMONIA Technique: P ortable chest x-ray 11/22/2018 8:03 AM Comparison:11/21/2018. FINDINGS: The exam is rotated. There is a small left pleural effusionwith probable infiltrate or atel ectasis. There is improved aeration of the rightlung since the prior. Evaluation of the cardiac silhouette is limited byprojection. The visualized osseous str uctures appear unremarkable.IMPRESSION: There is a small left pleural effusion with pr obable infiltrate oratelectasis. There is improved aeration of the right lung sinc e the prior.Xr Abd (kub)Result Date: 11/22/2018EXAM: XR ABD (KUB) INDICATION: ileus COMPARISON: None. FINDINGS: A supineradiograph of the abdomen shows a normal bowel gas pattern. No soft tissuemasses or pathologic calcification s are identified. The bones and soft tissuesare within normal limits. There i s moderate fecal material overlying the pelvis.There are skin kalpana along the midline.IMPRESSION: No dilated loops of bowel are identified to suggest obstruction.Xr Abd (kub)Result Date: 11/19/2018XR ABD (KUB)-SINGLE VIEW PRIOR: None HISTORY: E valuate for G-tube placementFINDINGS: The examination is limited-the pt is in an R AO/LPO position. A tubeoverlies the abdomen extending from the right lower quadrant to the left upperquadrant and whether this represents a gastric tube cannot be defi nitivelydetermined. The bowel gas pattern is nonspecific. No abnormally dilated loop ofbowel, bowel wall thickening, pneumatosis or free air is identified. No abnormalde nsities or calcifications are identified. There are midline surgical skinstaples i dentified. The visualized osseous structures are unremarkable.IMPRESSION: 1. Tube ov erlying the abdomen terminating in the region of stomach;as described and discussed ab ove on this single oblique view the exact locationof this tube cannot be determine d. 2. Otherwise unremarkable abdomen/KUB.Cta Chest W Or W Wo ContResult Date: 11/09/19 19Examination: CTA Chest ? PE angiography History: Hypoxia; rule out pneumoniavers us pulmonary embolism Priors: None Technique: Low-dose, multiplanar,helica l CTA chest was performed with bolus IV injection from lung apices tobases. 3D- reformatted images were obtained and reviewed on a dedicated viewingworkstation and di rectly supervised. Contrast: A total of 71 mL of Isovue-370was administered intravenou sly for this procedure. Findings: No evidence ofpulmonary embolism is seen. T here is decreased size of the right hemithorax fromchronic scarring and retr action with mediastinal shift left to right.Additional area of consolidation i s seen in the right lower lobe and suggestssuperimposed pneumonia with subs egmental atelectasis. Subsegmental atelectasisis also noted in the left jorge g base, with pleural parenchymal scarring. Lowlung volumes are seen. No pneumothora x seen. Aorta normal in caliber withoutaneurysm or dissection. Mediastin um no adenopathy. Mediastinal shift is seen inthe left and right as a result of chr onic changes in the right hemithorax.Heart shows no chamber enlargement or pericard ial effusion. No acute fracturesseen in the bony thorax, sternum, manubrium and rib cage. Multiple compressiondeformities are seen in the mid and lower thoracic spine , with superimposedspondyloarthropathy. Cannot exclude acute fracture.Impression : No evidence of pulmonary embolism Right lower lobe pneumoniasuggested. Incidenta l scarring and retraction in the right hemithorax fromremote/chronic inflammato ry disease and/or trauma. Bibasilar subsegmentalatelectasis. Report Electron ically Signed By: Pawel Zafar M.D. -11/08/2018 12:40 AMXr Chest PortResult D ate: 11/21/2018AP portable film of the chest clinical indication pneumonia Study is c ompared toprevious examination of November 19, 2018. There has been partial clearing o fstreaky changes seen at the right base. There has been interval development ofso me haziness at the left base as well as elevation of the left leaf of thediaphra gm. Heart size is difficult to evaluate.IMPRESSION: 1. Partial clearing of streaks at right base. 2. Haziness at leftbase which may represent infiltrateX r Chest PortResult Date: 11/19/2018History: Respiratory difficulty. FINDINGS: A fron krystian portable view of the chestis compared to the prior study of 11/07/2016. A large ga s-filled structure isnoted beneath the left diaphragm, unchanged, likely representin g the stomach.The cardiac silhouette is normal in size. There is again noted to be shift ofmediastinal structures to the right. There are some streaky and patchy changesat the right lung base not seen on the prior study and the possibility ofin filtrative change cannot be excluded. A few nonspecific left basilar streaksare note d as well. Prominence of the right hilum is unchanged and may merely carlos enrique a result o f the shift of mediastinal structures.IMPRESSION: New patchy opacit y at the right lung base may be infiltrative oratelectatic in nature. Few left basila r streaks are noted as well. Otherwisefindings similar.Xr Chest PortR esult Date: 11/07/2018XR CHEST PORT CLINICAL INDICATION PROVIDED:. "sob." COMPARISON: . 09/26/2015.FINDINGS:. The pericardial/cardiac silhouette is enlarg ed in the transversedimension. There is no pulmonary vascular congestion or interst itial edema.Linear density in the left lung base and faint densities in the right mi d tolower lung likely represent atelectasis. There is no lobar consolidation oreffusi on. There is no pneumothorax.IMPRESSION:. Bilateral lower lung atelectasis. No donna dence of consolidation oreffusion.Xr Abd Port 1 VResult Date: 11/21/2018Abdomen 2 views clinical indication ileus Study is compared to previousexamination of November 20, 2018 . There has been an interval decrease in boweldistention. Increased stool is note d in the rectal region. Skin clips are againnoted.IMPRESSION: 1. Interval decre ase in bowel distention. 2. Increased stool inrectal regionXr Abd Port 1 VResult Da te: 11/20/2018KUB one view(s) History: Ileus. Comparison: Yesterday. There is diffuse ileusof the small and large bowel which has increased involving the small bowel. Air and fecal material is noted in the rectosigmoid colon. The cecum appears to bein the right hemiabdomen but is otherwise unchanged. There is no evidence ofobstru ction, radiopaque gallstones, or kidney stones. The previously noted tubeoverlyi ng the abdomen is no longer seen.IMPRESSION: Increase of small bowel ileus.Medication s reviewedpotassium chloride (KLOR-CON) packet for solution 20 mEq 20 mEq Oral BID WITHMEALS vancomycin (VANCOCIN) 1,250 mg in 0.9% sodium chloride 250 mL IVPB 1,2 50 mgIntraVENous Q12H pantoprazole (PROTONIX) granules for oral suspension 40 mg 40 mg Per G TubeACB methylPREDNISolone (PF) (SOLU-MEDROL) in jection 20 mg 20 mg IntraVENous DAILY LORazepam (ATIVAN) tablet 0.5 mg 0.5 mg Per G Tube QHS albuterol-ipratropium (DUO-NEB) 2.5 MG-0.5 MG/3 ML 3 mL Nebul ization Q6HWA RT valproate (DEPACON) 250 mg in 0.9% sodium chloride 50 mL IVPB 250 mgIntraVENous Q12H albuterol-ipratropium (DUO-NEB) 2.5 MG-0.5 MG/3 ML 3 mL Nebul ization Q4H PRN cinacalcet (SENSIPAR) tablet 60 mg 60 mg Oral DAILY budesonide (PUL MICORT) 500 mcg/2 ml nebulizer suspension 500 mcg NebulizationBID RT Assessment/Pl an:Hospital Problems Date Reviewed: 11/27/2018 Codes Class Noted POA CO PD (chronic obstructive pulmonary disease) (HCC) ICD-10-CM: J44.9ICD-9-CM: 496 7/10/2018 Unknown Acute respiratory distress ICD-10-CM: R06.03ICD-9-CM: 518.82 2018 Unknown Pneumonia ICD-10-CM: J18.9ICD-9-CM: 486 11/08/2018 Unknown CO PD exacerbation (HCC) ICD-10-CM: J44.1ICD-9-CM: 491.21 11/08/2018 Unknown Assessment:Serous drainage from marvel peg site. S/p placement of provena dressinga nd wound vacIleus - ResolvedTF restarted by surgeon todayGastrostomy tube placement on 11/17/2018DysphagiaAcute Respiratory failurePE ruled outPost op Leukocytosis- trending downAcute Hypercapnia, Hypoxic respiratory failureRule out sepsis- Cult ures NGTDMetabolic acidosis- Resolved Pneumonia- RLL Acute COPD exacerbationH/ o large hiatal herniaGERDSeizureSevere intellectual disabilityAnxiety disorderL eukocytosis- resolvingChronic Schizophrenia -HypokalemiaPlan: TF restarted. Cont O2 NC/Bipap per pulm Off Solu MedrolTo maintain negative pressure on the wound andmonito r drainage per surgeonSurgery f/u Continue PPI Continue IV zosyn and Vancomycinnebs F/u culturesdvt prophylaxis with heparin subcutMitts restraints, prnReplace potas sium Renae Gonzalez 2018Time: 5:12 PM Name Value Range Interpretation Code Description Data Harriett rce(s) Supporting Document(s ) ID Date Data Source [id number] 10/25/2019 02:07:49 PM EDT [facility] Progress NotePatient: Evelio Carlin Sex: male DOA: 11/07/2018Date of : 1950 Age: 68 y.o. :[id number]:Reyes Carlin is 68 y.o. male who was sent to the ED for hypoxia, with O2SAT of 84 % o n room air, respiratory distress, COPD exacerbation and Pneumonia.He has medica l h/o COPD, requiring intermittent O2 NC, large hiatal hernia,GERD, recurrent aspi ration pneumonia, dysphagia, parkinson disease, epilepsy,(focal),(partial) and Idiopathic, not intractable. Severe intellectualdisability, hyperparathyroid , unspecified, personal h/o pulmonary embolus,anxiety disorder, kyphosis and s chizophrenia.The pt was placed on BIPAP.CTA chest was neg for pulm embolism. Showing decreased size of the rt hemithoraxfrom chronic scarring and retraction with med iastinal shift left to rt.Additional area of consolidation is seen in the RLL an sugg ests superimposedpneumonia with subsegmental atelectasis. Low lung volumes are seen. Labs were remarkable for lactic acidosis as high as 4.1.The pt was admitted with ini tial encounter diag of Acute hypercapnia, hypoxicrespiratory failure, COPD Exacerb ation, Pneumonia RLL, atelectasis and Metabolicacidosis. Also, diag of dysphag ia, seizure, hyperparathyroid, unspecified andintellectual disability are pertinent to this visit.Pt was restless overnight, given iv ativan 0.5 mg with improvement. Pt failed the bedside swallow re eval and the staff has had unsuccessfulattempts at ng t insertion. Seen by gi rec surgical placement of the feeding tube.The pt is nonverbal and is unable to provide a history. He is breathing better. No eduardo nts overnight. Surgery reaching out to family for informed consent; in order to procee d withsurgical gastrostomy tube poss jejunostomy tube placement. Pt is s/p p lacement of surgical gastrostomy tube and trimming of the toe andfingernails on 11/17/2018.He is afebrileWBC up to 25.4Pt found in acute resp distress by pulmonary, jocelyn riley on BIPAP and transferred toMICU. CXR dated 11/19 with findings of large air dis tended stomach, unchanged. Newpatchy opacity at the rt lung base may be infiltrative or atelectatic in nature.Few left basilar streaks are noted. + coffee ground emesi sPeg hung to gravity.WBC trending down to 21,000 -->17K WBCs cont to trend down.AX R dated 11/20 increase of small bowel ileusAXR dated 11/21 interval decrease in bowel dis tention. Increased stool in rectalregion.Seen by gi noting that coffee ground material on yesterday, suspect was due tostress gastritis. Rec monitor CBC ,PPI, TWE and cont g tube to LIWS PT is sandhya TF. 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 Pupils are equalNose: Nares normal. No drainage or sinus tende rness.Throat: Lips, mucosa, and tongue normal. No ThrushNeck: Supple, symmetr ical, no adenopathy, thyroid: non tender no carotid bruit and no JVD.Back: Symmet rodger, No CVA tenderness.Lungs: Clear to auscultation bilaterally. No Wheezing o r Rhonchi. No rales.Chest wall: No tenderness or deformity. No Accessory mu scle use.Heart: Regular rate and rhythm, no murmur, rub or gallop.Abdomen: Soft , non-tender. Not distended. Bowel sounds normal. No massesExtremities: Extremitie s normal, atraumatic, No cyanosis. No edema. No clubbingSkin: Texture, turgor nor mal. No rashes or lesions. Not JaundicedLymph nodes: Cervical, supracla vicular normal.Psych: Good insight. Not depressed. Not anxious or agitated.Neur ologic: EOMs intact. No facial asymmetry. No aphasia or slurred speech.Normal stren gth, Alert and oriented X 3.Intake and Output:Current Shift: 11/27 0701 - 11/13 5 1900In: -Out: 2975 [Urine:2975]Last three shifts:Last three shifts: 11/22 1900 - 11/24 0700In: 1050 [I.V.:400]Out: 5250 [Urine:5250]Lab/Data Reviewed:Recent Day s:Lab Results:Recent ResultsRecent Results (from the past 24 hour(s))MAGNESIUM Col lection Time: 11/24/18 8:10 AMResult Value Ref Range Magnesium 1.8 1.6 - 2.6 mg/dL CBC WITH AUTOMATED DIFF Collection Time: 11/24/18 8:10 AMResult Value Ref Range WBC 13.8 (H) 4.8 - 10.6 K/uL RBC 4.19 (L) 4.70 - 6.00 M/uL HGB 13.7 (L) 14.0 - 18 .0 g/dL HCT 39.4 (L) 42.0 - 52.0 % MCV 94.0 81.0 - 94.0 FL MCH 32.7 27.0 - 35.0 PG MCHC 34.8 30.7 - 37.3 g/dL RDW 14.3 (H) 11.5 - 14.0 % PLATELET 198 130 - 400 K/ uL MPV 9.4 9.2 - 11.8 FL NEUTROPHILS 87 (H) 48.0 - 72.0 % LYMPHOCYTES 8 (L) 18.0 - 40.0 % MONOCYTES 5 2.0 - 12.0 % EOSINOPHILS 0 0.0 - 7.0 % BASOPHILS 0 0.0 - 3.0 % ABS. NEUTROPHILS 11.9 (H) 1.5 - 6.6 K/UL ABS. LYMPHOCYTES 1.1 (L) 1.5 - 3.5 K/UL ABS. MONOCYTES 0.7 0.0 - 1.0 K/UL ABS. EOSINOPHILS 0.0 0.0 - 0.7 K/UL ABS. BAS OPHILS 0.0 0.0 - 0.1 K/UL DF AUTOMATED IMMATURE GRANULOCYTES 1 0.0 - 2.0 %METAB OLIC PANEL, COMPREHENSIVE Collection Time: 11/24/18 8:10 AMResult Value Ref Range Sodium 139 136 - 145 mmol/L Potassium 3.4 (L) 3.5 - 5.1 mmol/L Chloride 98 98 - 1 07 mmol/L CO2 36 (H) 21 - 32 mmol/L Anion gap 8 (L) 10 - 20 mmol/L Glucose 154 (H ) 74 - 106 mg/dL BUN 9 7 - 18 mg/dL Creatinine 0.31 (L) 0.70 - 1.30 mg/dL G FR est AA >60 >60 ml/min/1.73m2 GFR est non-AA >60 >60 ml/min/1.73m2 Calcium 9. 5 8.5 - 10.1 mg/dL Bilirubin, total 0.6 0.2 - 1.0 mg/dL ALT (SGPT) 25 13 - 61 U/L AST (SGOT) 13 (L) 15 - 37 U/L Alk. phosphatase 85 45 - 117 U/L Protein, to krystian 5.9 (L) 6.4 - 8.2 g/dL Albumin 2.7 (L) 3.5 - 4.7 g/dL Globulin 3.2 1.7 - 4.7 g /dL A-G Ratio 0.8 0.7 - 2.8 ABG:Recent Labs 235PH 7.45PCO2 38PO2 73*HCO3 2 6CULTURE, BLOOD [[id number]] (Order [id number])MicrobiologyDate: 11/07/2018 D epartment: [facility] Released By/Authorizing: Lisa Powell MD (auto -released)Specimen Information: Blood Component Value Flag Ref Range Units StatusSpecial Requests: FinalNO SPECIAL REQUESTSCulture result: NO GROW TH 5 DAYS FinalXr Chest Sngl VResult Date: 11/25/2018AP portable film of the c hest clinical indication pneumonia Study is [facility] Study demonstrates a left pleuraleffusion as well as infiltrate at the left base. This was present on previousstudy. There has been interval d evelopment of a small right pleural effusionwith linear streaking at the rig ht base this may represent infiltrate oratelectasis. Heart size difficult to e valuate.IMPRESSION: Infiltrate left base with pleural effusion, right pleural effusion with streaking at right lower lung field which may represent infiltrate oratelect asisXr Chest Sngl VResult Date: 11/22/2018History: PNEUMONIA Technique: P ortable chest x-ray 11/22/2018 8:03 AM Comparison:11/21/2018. FINDINGS: The exam is rotated. There is a small left pleural effusionwith probable infiltrate or atel ectasis. There is improved aeration of the rightlung since the prior. Evaluation of the cardiac silhouette is limited byprojection. The visualized osseous str uctures appear unremarkable.IMPRESSION: There is a small left pleural effusion with pr obable infiltrate oratelectasis. There is improved aeration of the right lung sinc e the prior.Xr Abd (kub)Result Date: 11/22/2018EXAM: XR ABD (KUB) INDICATION: ileus COMPARISON: None. FINDINGS: A supineradiograph of the abdomen shows a normal bowel gas pattern. No soft tissuemasses or pathologic calcification s are identified. The bones and soft tissuesare within normal limits. There i s moderate fecal material overlying the pelvis.There are skin kalpana along the midline.IMPRESSION: No dilated loops of bowel are identified to suggest obstruction.Xr Abd (kub)Result Date: 11/19/2018XR ABD (KUB)-SINGLE VIEW PRIOR: None HISTORY: E valuate for G-tube placementFINDINGS: The examination is limited-the pt is in an R AO/LPO position. A tubeoverlies the abdomen extending from the right lower quadrant to the left upperquadrant and whether this represents a gastric tube cannot be defi nitivelydetermined. The bowel gas pattern is nonspecific. No abnormally dilated loop ofbowel, bowel wall thickening, pneumatosis or free air is identified. No abnormalde nsities or calcifications are identified. There are midline surgical skinstaples i dentified. The visualized osseous structures are unremarkable.IMPRESSION: 1. Tube ov erlying the abdomen terminating in the region of stomach;as described and discussed ab ove on this single oblique view the exact locationof this tube cannot be determine d. 2. Otherwise unremarkable abdomen/KUB.Cta Chest W Or W Wo ContResult Date: 11/09/19 19Examination: CTA Chest ? PE angiography History: Hypoxia; rule out pneumoniavers us pulmonary embolism Priors: None Technique: Low-dose, multiplanar,helica l CTA chest was performed with bolus IV injection from lung apices tobases. 3D- reformatted images were obtained and reviewed on a dedicated viewingworkstation and di rectly supervised. Contrast: A total of 71 mL of Isovue-370was administered intravenou sly for this procedure. Findings: No evidence ofpulmonary embolism is seen. T here is decreased size of the right hemithorax fromchronic scarring and retr action with mediastinal shift left to right.Additional area of consolidation i s seen in the right lower lobe and suggestssuperimposed pneumonia with subs egmental atelectasis. Subsegmental atelectasisis also noted in the left jorge g base, with pleural parenchymal scarring. Lowlung volumes are seen. No pneumothora x seen. Aorta normal in caliber withoutaneurysm or dissection. Mediastin um no adenopathy. Mediastinal shift is seen inthe left and right as a result of chr onic changes in the right hemithorax.Heart shows no chamber enlargement or pericard ial effusion. No acute fracturesseen in the bony thorax, sternum, manubrium and rib cage. Multiple compressiondeformities are seen in the mid and lower thoracic spine , with superimposedspondyloarthropathy. Cannot exclude acute fracture.Impression : No evidence of pulmonary embolism Right lower lobe pneumoniasuggested. Incidenta l scarring and retraction in the right hemithorax fromremote/chronic inflammato ry disease and/or trauma. Bibasilar subsegmentalatelectasis. Report Electron ically Signed By: Pawel Zafar M.D. -11/08/2018 12:40 AMXr Chest PortResult D ate: 11/21/2018AP portable film of the chest clinical indication pneumonia Study is c ompared toprevious examination of November 19, 2018. There has been partial clearing o fstreaky changes seen at the right base. There has been interval development ofso me haziness at the left base as well as elevation of the left leaf of thediaphra gm. Heart size is difficult to evaluate.IMPRESSION: 1. Partial clearing of streaks at right base. 2. Haziness at leftbase which may represent infiltrateX r Chest PortResult Date: 11/19/2018History: Respiratory difficulty. FINDINGS: A fron krystian portable view of the chestis compared to the prior study of 11/07/2016. A large ga s-filled structure isnoted beneath the left diaphragm, unchanged, likely representin g the stomach.The cardiac silhouette is normal in size. There is again noted to be shift ofmediastinal structures to the right. There are some streaky and patchy changesat the right lung base not seen on the prior study and the possibility ofin filtrative change cannot be excluded. A few nonspecific left basilar streaksare note d as well. Prominence of the right hilum is unchanged and may merely carlos enrique a result o f the shift of mediastinal structures.IMPRESSION: New patchy opacit y at the right lung base may be infiltrative oratelectatic in nature. Few left basila r streaks are noted as well. Otherwisefindings similar.Xr Chest PortR esult Date: 11/07/2018XR CHEST PORT CLINICAL INDICATION PROVIDED:. "sob." COMPARISON: . 09/26/2015.FINDINGS:. The pericardial/cardiac silhouette is enlarg ed in the transversedimension. There is no pulmonary vascular congestion or interst itial edema.Linear density in the left lung base and faint densities in the right mi d tolower lung likely represent atelectasis. There is no lobar consolidation oreffusi on. There is no pneumothorax.IMPRESSION:. Bilateral lower lung atelectasis. No donna dence of consolidation oreffusion.Xr Abd Port 1 VResult Date: 11/21/2018Abdomen 2 views clinical indication ileus Study is compared to previousexamination of November 20, 2018 . There has been an interval decrease in boweldistention. Increased stool is note d in the rectal region. Skin clips are againnoted.IMPRESSION: 1. Interval decre ase in bowel distention. 2. Increased stool inrectal regionXr Abd Port 1 VResult Da te: 11/20/2018KUB one view(s) History: Ileus. Comparison: Yesterday. There is diffuse ileusof the small and large bowel which has increased involving the small bowel. Air and fecal material is noted in the rectosigmoid colon. The cecum appears to bein the right hemiabdomen but is otherwise unchanged. There is no evidence ofobstru ction, radiopaque gallstones, or kidney stones. The previously noted tubeoverlyi ng the abdomen is no longer seen.IMPRESSION: Increase of small bowel ileus.Medication s reviewedCurrent Facility-Administered MedicationsMedication Dose Route Frequen cy vancomycin (VANCOCIN) 1,250 mg in 0.9% sodium chloride 250 mL IVPB 1,250 mgInt raVENous Q12H [START ON 11/25/2018] pantoprazole (PROTONIX) granules for ora l suspension 40mg 40 mg Per G Tube ACB [START ON 11/25/2018] methylPREDNISolone (PF) (SOLU-MEDROL) injection 20 mg 20mg IntraVENous DAILY LORazepam (ATIVAN) ta blet 0.5 mg 0.5 mg Per G Tube QHS sucralfate (CARAFATE) tablet 1 g 1 g Pe r G Tube AC&HS albuterol-ipratropium (DUO-NEB) 2.5 MG-0.5 MG/3 ML 3 mL Nebul ization Q6HWA RT metoclopramide HCl (REGLAN) injection 10 mg 10 mg IntraVENous Q8H piperacillin-tazobactam (ZOSYN) 3.375 g in 0.9% sodium chloride (MBP/ADV) 100mL MBP 3.375 g IntraVENous Q8H valproate (DEPACON) 250 mg in 0.9% sodium chloride 50 mL IVPB 250 mgIntraVENous Q12H albuterol-ipratropium (DUO-NEB) 2.5 MG-0 .5 MG/3 ML 3 mL Nebulization Q4H PRN cinacalcet (SENSIPAR) tablet 60 mg 60 m g Oral DAILY budesonide (PULMICORT) 500 mcg/2 ml nebulizer suspension 500 mcg N ebulizationBID RT Assessment/Plan:Hospital Problems Date Reviewed: 11/27/2018 Codes Class Noted POA COPD (chronic obstructive pulmonary disease) (HCC) ICD -10-CM: J44.9ICD-9-CM: 496 11/08/2018 Unknown Acute respiratory distress ICD-10-CM: R0 6.03ICD-9-CM: 518.82 11/08/2018 Unknown Pneumonia ICD-10-CM: J18.9ICD-9-CM: 486 11/08/2018 Unknown COPD exacerbation (HCC) ICD-10-CM: J44.1ICD-9-CM: 491.21 019 UnknownAssessment:Ileus - ResolvingTF restarted by surgeon todayGastrostomy tu be placement on 11/17/2018DysphagiaAcute Respiratory failurePE ruled outPost op L eukocytosis- trending downAcute Hypercapnia, Hypoxic respiratory failureRule out seps is- Cultures NGTDMetabolic acidosis- Resolved Pneumonia- RLL Acute COPD exacerbationH/ o large hiatal herniaGERDSeizureSevere intellectual disabilityAnxiety disorderL eukocytosis- resolvingChronic Schizophrenia -Hypokalemia Plan: TF restarted. Cont O2 NC/Bipap per pulm Off Solu MedrolSurgery f/u Continue PPI Continue IV zosyn and Vanco mycinnebsF/u culturesdvt prophylaxis with heparin subcutMitts restraints, prnRepla ce potassium Renae Gonzalez 2018Time: 5:12 PM Name Value Range Interpretation Code Description Data Harriett rce(s) Supporting Document(s ) ID Date Data Source [id number] 10/25/2019 01:46:46 PM EDT [facility] Progress NotePatient: Evelio Carlin Sex: male DOA: 11/07/2018Date of : 1950 Age: 68 y.o. :[id number]:Reyes Carlin is 68 y.o. male .who was sent to the ED for hypoxia, with O2SAT of 84 % o n room air, respiratory distress, COPD exacerbation and Pneumonia.He has medica l h/o COPD, requiring intermittent O2 NC, large hiatal hernia,GERD, recurrent aspi ration pneumonia, dysphagia, parkinson disease, epilepsy,(focal),(partial) and Idiopathic, not intractable. Severe intellectualdisability, hyperparathyroid , unspecified, personal h/o pulmonary embolus,anxiety disorder, kyphosis and s chizophrenia.The pt was placed on BIPAP.CTA chest was neg for pulm embolism. Showing decreased size of the rt hemithoraxfrom chronic scarring and retraction with med iastinal shift left to rt.Additional area of consolidation is seen in the RLL an sugg ests superimposedpneumonia with subsegmental atelectasis. Low lung volumes are seen. Labs were remarkable for lactic acidosis as high as 4.1.The pt was admitted with ini tial encounter diag of Acute hypercapnia, hypoxicrespiratory failure, COPD Exacerb ation, Pneumonia RLL, atelectasis and Metabolicacidosis. Also, diag of dysphag ia, seizure, hyperparathyroid, unspecified andintellectual disability are pertinent to this visit.Pt was restless overnight, given iv ativan 0.5 mg with improvement. Pt failed the bedside swallow re eval and the staff has had unsuccessfulattempts at ng t insertion. Seen by gi rec surgical placement of the feeding tube.The pt is nonverbal and is unable to provide a history. He is breathing better. No eduardo nts overnight. Surgery reaching out to family for informed consent; in order to procee d withsurgical gastrostomy tube poss jejunostomy tube placement. Pt is s/p s urgical gastrostomy tube and trimming of the toe and fingernails on11/17/2018He is afeb rileWBC up to 25.4Pt found in acute resp distress by pulmonary, placed on BIPAP a nd transferred toMICU. CXR dated 11/19 with findings of large air distended stomach, unchanged. Newpatchy opacity at the rt lung base may be infiltrative or atelectatic in nature.Few left basilar streaks are noted. + coffee ground emesisPeg hung to gravit y.WBC trending down to 21,000 -->17K Today's WBC down to 14K; hgb/hct stable.AXR date d 11/20 increase of small bowel ileusAXR dated 11/21 interval decrease in bowel distentio n. Increased stool in rectalregion.Seen by gi noting that coffee ground material on , suspect was due tostress gastritis. Rec monitor CBC ,PPI, TWE and cont g tub e to LIWS Pt is sandhya TF. 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) Pneumoni a Psychiatric disorder Pulmonary emboli (HCC) Schizophrenia (HCC)Review of Syst ems: [] Unable to obtain ROS due to []mental status change []sedated []intubated [ ]Total of 12 systems reviewed as follows:Constitutional: negative fever, negative chills, negative weight lossEyes: negative diplopia or visual changes, neg ative eye painENT: negative coryza, negative sore throatRespiratory: negati ve cough, hemoptysis, dyspneaCards: negative for chest pain, palpitations, lower extr emity edemaGI: negative for nausea, vomiting, diarrhea, and abdominal painGe nitourinary: negative for frequency, dysuria and hematuriaIntegument: negative for r duke and pruritusHematologic: negative for easy bruising and gum/nose bleedingMuscu loskel: negative for myalgias, arthralgias, back pain and muscle weaknessNeurologica l: negative for headaches, dizziness, vertigo, memory problems andgait problem sBehavl/Psych: negative for feelings of anxiety, depressionPertinent Positives i nclude :Objective:Visit VitalsBP 150/90 (BP 1 Location: Right arm, BP Patient Position : At rest;Supine;Head ofbed elevated (Comment degrees))Pulse 85Temp 98.1 F (36.7 C)R david 20Ht 5' 2" (1.575 m)Wt 59.2 kg (130 lb 8 oz)SpO2 91%BMI 23.87 kg/m PHYSICAL EXAM: General: Alert, cooperative, no distress, appears stated age.Head: Normocephalic , without obvious abnormality, atraumatic.Eyes: Conjunctivae clear, a nicteric sclerae. Pupils are equalNose: Nares normal. No drainage or sinus tende rness.Throat: Lips, mucosa, and tongue normal. No ThrushNeck: Supple, symmetr ical, no adenopathy, thyroid: non tender no carotid bruit and no JVD.Back: Symmet rodger, No CVA tenderness.Lungs: Clear to auscultation bilaterally. No Wheezing o r Rhonchi. No rales.Chest wall: No tenderness or deformity. No Accessory mu scle use.Heart: Regular rate and rhythm, no murmur, rub or gallop.Abdomen: Soft , non-tender. Not distended. Bowel sounds normal. No massesExtremities: Extremitie s normal, atraumatic, No cyanosis. No edema. No clubbingSkin: Texture, turgor nor mal. No rashes or lesions. Not JaundicedLymph nodes: Cervical, supracla vicular normal.Psych: Good insight. Not depressed. Not anxious or agitated.Neur ologic: EOMs intact. No facial asymmetry. No aphasia or slurred speech.Normal stren gth, Alert and oriented X 3.Intake and Output:Current Shift: No intake/output data recorded.Last three shifts: 11/22 700 - 11/23 1899In: 2085 [I.V.:1000]Out: 455 0 [Urine:4550]Lab/Data Reviewed:Recent Days:Recent Labs 11/22/1903WBC 12.6* 14.1* 17.1*HGB 13.1* 12.5* 11.9*HCT 38.8* 36.7* 34.9*PL T 171 168 171Recent Labs 11/23/1911NA 136 -- 141 139K 3.7 -- 4.1 3.9CL 101 -- 104 105CO2 30 28* 30 30GLU 147* -- 87 104BUN 10 -- 16 17CREA 0.32* -- 0.33* 0.32*CA 9.8 -- 9.4 9.1MG 1.8 -- 1.6 1.7ALB 2.5* -- 2.4* 2.2*TBILI 0.8 -- 0.9 0.9SGOT 19 -- 16 21ALT 29 -- 25 26Re cent Labs PH 7.45PCO2 38PO2 73*HCO3 26CULTURE, URINE [[id number]] (Orde r [id number])MicrobiologyDate: 11/20/2018 Department: [facility] Released By /Authorizing: Letty Kaye MD (auto-released)Specimen Information: Fo ronni Specimen; Urine Component Value Flag Ref Range Units StatusSpecial Requests : FinalNO SPECIAL REQUESTSCulture result: NO GROWTH 2 DAYSCULTURE, BLOOD [[id number]] (Order [id number])MicrobiologyDate: 11/07/2018 Department: [facility] Released By/Authorizing: Lisa Powell MD (auto-released)Specimen Information: Bl ood Component Value Flag Ref Range Units StatusSpecial Requests: FinalNO S PECIAL REQUESTSCulture result: NO GROWTH 5 DAYS FinalXr Chest Sngl VResult Da te: 11/22/2018History: PNEUMONIA Technique: Portable chest x-ray 11/22/2018 8:03 AM C omparison:11/21/2018. FINDINGS: The exam is rotated. There is a small left pleural e ffusionwith probable infiltrate or atelectasis. There is improved aeration of the rightlung since the prior. Evaluation of the cardiac silhouette is limited byp rojection. The visualized osseous structures appear unremarkable.IMPRESSION: There is a small left pleural effusion with probable infiltrate oratelectasis. There is impro nathaly aeration of the right lung since the prior.Xr Abd (kub)Result Date: 11/22/2018 EXAM: XR ABD (KUB) INDICATION: ileus COMPARISON: None. FINDINGS: A supineradi ograph of the abdomen shows a normal bowel gas pattern. No soft tissuemasses or pat hologic calcifications are identified. The bones and soft tissuesare within normal limits. There is moderate fecal material overlying the pelvis.There are skin stap les along the midline.IMPRESSION: No dilated loops of bowel are identified to suggest obstruction.Xr Abd (kub)Result Date: 11/19/2018XR ABD (KUB)-SINGLE VIEW PRIOR: None HISTORY: Evaluate for G-tube placementFINDINGS: The examination is li mited-the pt is in an AKHTAR/LPO position. A tubeoverlies the abdomen extending from the right lower quadrant to the left upperquadrant and whether this represent s a gastric tube cannot be definitivelydetermined. The bowel gas pa ttern is nonspecific. No abnormally dilated loop ofbowel, bowel wall thickening, pne umatosis or free air is identified. No abnormaldensities or calcifications are identified. There are midline surgical skinstaples identified. The visualized o sseous structures are unremarkable.IMPRESSION: 1. Tube overly ing the abdomen terminating in the region of stomach;as described and discussed above on this single oblique view the exact locationof this tube cannot be determine d. 2. Otherwise unremarkable abdomen/KUB.Cta Chest W Or W Wo ContResult Date: 11/09/19 19Examination: CTA Chest ? PE angiography History: Hypoxia; rule out pneumoniavers us pulmonary embolism Priors: None Technique: Low-dose, multiplanar,helica l CTA chest was performed with bolus IV injection from lung apices tobases. 3D- reformatted images were obtained and reviewed on a dedicated viewingworkstation and di rectly supervised. Contrast: A total of 71 mL of Isovue-370was administered intravenou sly for this procedure. Findings: No evidence ofpulmonary embolism is seen. T here is decreased size of the right hemithorax fromchronic scarring and retr action with mediastinal shift left to right.Additional area of consolidation i s seen in the right lower lobe and suggestssuperimposed pneumonia with subs egmental atelectasis. Subsegmental atelectasisis also noted in the left jorge g base, with pleural parenchymal scarring. Lowlung volumes are seen. No pneumothora x seen. Aorta normal in caliber withoutaneurysm or dissection. Mediastin um no adenopathy. Mediastinal shift is seen inthe left and right as a result of chr onic changes in the right hemithorax.Heart shows no chamber enlargement or pericard ial effusion. No acute fracturesseen in the bony thorax, sternum, manubrium and rib cage. Multiple compressiondeformities are seen in the mid and lower thoracic spine , with superimposedspondyloarthropathy. Cannot exclude acute fracture.Impression : No evidence of pulmonary embolism Right lower lobe pneumoniasuggested. Incidenta l scarring and retraction in the right hemithorax fromremote/chronic inflammato ry disease and/or trauma. Bibasilar subsegmentalatelectasis. Report Electron ically Signed By: Pawel Zafar M.D. -11/08/2018 12:40 AMXr Chest PortResult D ate: 11/21/2018AP portable film of the chest clinical indication pneumonia Study is c ompared toprevious examination of November 19, 2018. There has been partial clearing o fstreaky changes seen at the right base. There has been interval development ofso me haziness at the left base as well as elevation of the left leaf of thediaphra gm. Heart size is difficult to evaluate.IMPRESSION: 1. Partial clearing of streaks at right base. 2. Haziness at leftbase which may represent infiltrateX r Chest PortResult Date: 11/19/2018History: Respiratory difficulty. FINDINGS: A fron krystian portable view of the chestis compared to the prior study of 11/07/2016. A large ga s-filled structure isnoted beneath the left diaphragm, unchanged, likely representin g the stomach.The cardiac silhouette is normal in size. There is again noted to be shift ofmediastinal structures to the right. There are some streaky and patchy changesat the right lung base not seen on the prior study and the possibility ofin filtrative change cannot be excluded. A few nonspecific left basilar streaksare note d as well. Prominence of the right hilum is unchanged and may merely carlos enrique a result o f the shift of mediastinal structures.IMPRESSION: New patchy opacit y at the right lung base may be infiltrative oratelectatic in nature. Few left basila r streaks are noted as well. Otherwisefindings similar.Xr Chest PortR esult Date: 11/07/2018XR CHEST PORT CLINICAL INDICATION PROVIDED:. "sob." COMPARISON: . 09/26/2015.FINDINGS:. The pericardial/cardiac silhouette is enlarg ed in the transversedimension. There is no pulmonary vascular congestion or interst itial edema.Linear density in the left lung base and faint densities in the right mi d tolower lung likely represent atelectasis. There is no lobar consolidation oreffusi on. There is no pneumothorax.IMPRESSION:. Bilateral lower lung atelectasis. No donna dence of consolidation oreffusion.Xr Abd Port 1 VResult Date: 11/21/2018Abdomen 2 views clinical indication ileus Study is compared to previousexamination of November 20, 2018 . There has been an interval decrease in boweldistention. Increased stool is note d in the rectal region. Skin clips are againnoted.IMPRESSION: 1. Interval decre ase in bowel distention. 2. Increased stool inrectal regionXr Abd Port 1 VResult Da te: 11/20/2018KUB one view(s) History: Ileus. Comparison: Yesterday. There is diffuse ileusof the small and large bowel which has increased involving the small bowel. Air and fecal material is noted in the rectosigmoid colon. The cecum appears to bein the right hemiabdomen but is otherwise unchanged. There is no evidence ofobstru ction, radiopaque gallstones, or kidney stones. The previously noted tubeoverlyi ng the abdomen is no longer seen.IMPRESSION: Increase of small bowel ileus.Medication s reviewedCurrent Facility-Administered MedicationsMedication Dose Route Frequen cy LORazepam (ATIVAN) tablet 0.5 mg 0.5 mg Per G Tube QHS sucralfate (CARAFATE) ta blet 1 g 1 g Per G Tube AC&HS methylPREDNISolone (PF) (SOLU-MEDROL) in jection 20 mg 20 mg IntraVENous Q8H albuterol-ipratropium (DUO-NEB) 2.5 MG-0 .5 MG/3 ML 3 mL Nebulization Q6HWA RT vancomycin (VANCOCIN) 1,000 mg in 0.9% s odium chloride 250 mL IVPB 1,000 mgIntraVENous Q12H pantoprazole (PROTON IX) 40 mg in sodium chloride 0.9% 10 mL injection 40 mgIntraVENous Q12H metocl opramide HCl (REGLAN) injection 10 mg 10 mg IntraVENous Q8H piperacillin-tazobactam (ZOSYN) 3.375 g in 0.9% sodium chloride (MBP/ADV) 100mL MBP 3.375 g IntraVENous Q8H valproate (DEPACON) 250 mg in 0.9% sodium chloride 50 mL IVPB 250 mgIntraV ENous Q12H albuterol-ipratropium (DUO-NEB) 2.5 MG-0.5 MG/3 ML 3 mL Nebulization Q4 H PRN cinacalcet (SENSIPAR) tablet 60 mg 60 mg Oral DAILY budesonide (PULMICORT) 50 0 mcg/2 ml nebulizer suspension 500 mcg NebulizationBID RTAssessment/Plan:Hospit al Problems Never Reviewed Codes Class Noted POA COPD (chronic obstructive pulm onary disease) ([facility]) ICD-10-CM: J44.9ICD-9-CM: 496 11/08/2018 Unknown Ac manzanita respiratory distress ICD-10-CM: R06.03ICD-9-CM: 518.82 11/08/2018 Unknow n Pneumonia ICD-10-CM: J18.9ICD-9-CM: 486 11/08/2018 Unknown COPD exacerbation (HCC ) ICD-10-CM: J44.1ICD-9-CM: 491.21 11/08/2018 UnknownAssessment:Ileus - ResolvedTF res tarted by surgeon todayGastrostomy tube placement on 11/17/2018DysphagiaAcute Resp iratory failurePE ruled outPost op Leukocytosis- trending downAcute Hyperca pnia, Hypoxic respiratory failureRule out sepsis- Cultures NGTDMetabolic acidosis- Resolved Pneumonia- RLL Acute COPD exacerbationH/o large hiatal herniaGERDS eizureSevere intellectual disabilityAnxiety disorderLeukocytosis- resolvingChronic S chizophrenia -Plan: TF restarted. Cont O2NC/Bipap per pulm IV solumedrol taper ed per pulmSurgery f/u Continue PPI Continue IV zosyn and VancomycinnebsF/u culturesd vt prophylaxis with heparin subcutIv fluidsMitts restraints, prn Mili Yonatan on, DOAugust 2018Time: 11:52 PM Name Value Range Interpretation Code Description Data Harriett rce(s) Supporting Document(s ) ID Date Data Source [id number] 10/25/2019 01:31:35 PM EDT [facility] Progress NotePatient: Evelio Carlin Sex: male DOA: 11/07/2018Date of : 1950 Age: 68 y.o. :[id number]:Reyes Carlin is 68 y.o. male .who was sent to the ED for hypoxia, with O2SAT of 84 % o n room air, respiratory distress, COPD exacerbation and Pneumonia.He has medica l h/o COPD, requiring intermittent O2 NC, large hiatal hernia,GERD, recurrent aspi ration pneumonia, dysphagia, parkinson disease, epilepsy,(focal),(partial) and Idiopathic, not intractable. Severe intellectualdisability, hyperparathyroid , unspecified, personal h/o pulmonary embolus,anxiety disorder, kyphosis and s chizophrenia.The pt was placed on BIPAP.CTA chest was neg for pulm embolism. Showing decreased size of the rt hemithoraxfrom chronic scarring and retraction with med iastinal shift left to rt.Additional area of consolidation is seen in the RLL an sugg ests superimposedpneumonia with subsegmental atelectasis. Low lung volumes are seen. Labs were remarkable for lactic acidosis as high as 4.1.The pt was admitted with ini tial encounter diag of Acute hypercapnia, hypoxicrespiratory failure, COPD Exacerb ation, Pneumonia RLL, atelectasis and Metabolicacidosis. Also, diag of dysphag ia, seizure, hyperparathyroid, unspecified andintellectual disability are pertinent to this visit.Pt was restless overnight, given iv ativan 0.5 mg with improvement. Pt failed the bedside swallow re eval and the staff has had unsuccessfulattempts at ng t insertion. Seen by gi rec surgical placement of the feeding tube.The pt is nonverbal and is unable to provide a history. He is breathing better. No eduardo nts overnight. Surgery reaching out to family for informed consent; in order to procee d withsurgical gastrostomy tube poss jejunostomy tube placement. Pt is POD 5 placement of surgical gastrostomy tube and trimming of the toe andfingernails.He is afebrileWBC up to 25.4Pt found in acute resp distress by pulmonary, placed on BIPAP a nd transferred toMICU. CXR dated 11/19 with findings of large air distended stomach, unchanged. Newpatchy opacity at the rt lung base may be infiltrative or atelectatic in nature.Few left basilar streaks are noted. + coffee ground emesisPeg hung to gravit y.WBC trending down to 21,000 -->17K Today's WBC down to 14K; hgb/hct stable.AXR date d 11/20 increase of small bowel ileusAXR dated 11/21 interval decrease in bowel distentio n. Increased stool in rectalregion.Seen by gi noting that coffee ground material on , suspect was due tostress gastritis. 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 3 kg (117 lb 6.4 oz)SpO2 91%BMI 21.47 kg/m PHYSICAL EXAM:General: Alert, coopera tive, no distress, appears stated age.Head: Normocephalic, without obvious abnormali ty, atraumatic.Eyes: Conjunctivae clear, anicteric sclerae. Pupils are equalNeck : Supple, symmetrical, no adenopathy, no carotid bruit and no JVD.Lungs: Clear to auscultation bilaterally. No Wheezing or Rhonchi. No rales.Chest wall: No Acces augusto muscle use.Heart: Regular rate and rhythm, no murmur, or rub.Abdomen: Pe g in place, soft, non-tender. Not distended. Bowel sounds normal.dsg witn serous drai nage.Extremities: Extremities normal, atraumatic, No cyanosis. No edema. No c lubbingSkin: Warm and dry. No rashes or lesions. Not JaundicedLymph nodes: Cerv ical, supraclavicular normal.Psych: Not anxious or agitated.Neurologic: EOMs int act. No facial asymmetry. Non verbal, generalized weakness,Alert and Awake.Int radhames and Output:Current Shift: 11/27 700 - 11/27 1899In: -Out: 2975 [Urine:2975]Las t three shifts: 11/25 1900 - 11/27 07In: 2535 [I.V.:100]Out: 3250 [Urine:3250]Lab /Data Reviewed:Recent Days: Most recent labs:Recent Labs 11/21/19156WBC 14.1* 17.1* 21.5*HGB 12.5* 11.9* 13.5*HCT 36.7* 34.9* 41.0*PL T 168 171 167Recent Labs 11/22/1905NA -- 141 139 139K -- 4.1 3.9 4.2CL -- 104 105 102CO2 28* 30 30 32GLU -- 87 1 04 138*BUN -- 16 17 18CREA -- 0.33* 0.32* 0.41*CA -- 9.4 9.1 9.3MG -- 1.6 1.7 1.7ALB -- 2.4* 2.2* 2.3*TBILI -- 0.9 0.9 0.8SGOT -- 16 21 19ALT -- 25 26 25Re cent Labs 235PH 7.45PCO2 38PO2 73*HCO3 26 ABG:Recent Labs 5PH 7.45PCO2 38PO2 73*HCO3 26Xr Chest Sngl VResult Date: 11/25/2018AP portable film of the chest clinical indication pneumonia Study is compared toprevious examination of November 22, 2018. Study demonstrates a left pleuraleffusion as well as infiltra te at the left base. This was present on previousstudy. There has been interval d evelopment of a small right pleural effusionwith linear streaking at the rig ht base this may represent infiltrate oratelectasis. Heart size difficult to e valuate.IMPRESSION: Infiltrate left base with pleural effusion, right pleural effusion with streaking at right lower lung field which may represent infiltrate oratelect asisXr Chest Sngl VResult Date: 11/22/2018History: PNEUMONIA Technique: P ortable chest x-ray 11/22/2018 8:03 AM Comparison:11/21/2018. FINDINGS: The exam is rotated. There is a small left pleural effusionwith probable infiltrate or atel ectasis. There is improved aeration of the rightlung since the prior. Evaluation of the cardiac silhouette is limited byprojection. The visualized osseous str uctures appear unremarkable.IMPRESSION: There is a small left pleural effusion with pr obable infiltrate oratelectasis. There is improved aeration of the right lung sinc e the prior.Xr Abd (kub)Result Date: 11/22/2018EXAM: XR ABD (KUB) INDICATION: ileus COMPARISON: None. FINDINGS: A supineradiograph of the abdomen shows a normal bowel gas pattern. No soft tissuemasses or pathologic calcification s are identified. The bones and soft tissuesare within normal limits. There i s moderate fecal material overlying the pelvis.There are skin kalpana along the midline.IMPRESSION: No dilated loops of bowel are identified to suggest obstruction.Xr Abd (kub)Result Date: 11/19/2018XR ABD (KUB)-SINGLE VIEW PRIOR: None HISTORY: E valuate for G-tube placementFINDINGS: The examination is limited-the pt is in an R AO/LPO position. A tubeoverlies the abdomen extending from the right lower quadrant to the left upperquadrant and whether this represents a gastric tube cannot be defi nitivelydetermined. The bowel gas pattern is nonspecific. No abnormally dilated loop ofbowel, bowel wall thickening, pneumatosis or free air is identified. No abnormalde nsities or calcifications are identified. There are midline surgical skinstaples i dentified. The visualized osseous structures are unremarkable.IMPRESSION: 1. Tube ov erlying the abdomen terminating in the region of stomach;as described and discussed ab ove on this single oblique view the exact locationof this tube cannot be determine d. 2. Otherwise unremarkable abdomen/KUB.Cta Chest W Or W Wo ContResult Date: 11/09/19 19Examination: CTA Chest ? PE angiography History: Hypoxia; rule out pneumoniavers us pulmonary embolism Priors: None Technique: Low-dose, multiplanar,helica l CTA chest was performed with bolus IV injection from lung apices tobases. 3D- reformatted images were obtained and reviewed on a dedicated viewingworkstation and di rectly supervised. Contrast: A total of 71 mL of Isovue-370was administered intravenou sly for this procedure. Findings: No evidence ofpulmonary embolism is seen. T here is decreased size of the right hemithorax fromchronic scarring and retr action with mediastinal shift left to right.Additional area of consolidation i s seen in the right lower lobe and suggestssuperimposed pneumonia with subs egmental atelectasis. Subsegmental atelectasisis also noted in the left jorge g base, with pleural parenchymal scarring. Lowlung volumes are seen. No pneumothora x seen. Aorta normal in caliber withoutaneurysm or dissection. Mediastin um no adenopathy. Mediastinal shift is seen inthe left and right as a result of chr onic changes in the right hemithorax.Heart shows no chamber enlargement or pericard ial effusion. No acute fracturesseen in the bony thorax, sternum, manubrium and rib cage. Multiple compressiondeformities are seen in the mid and lower thoracic spine , with superimposedspondyloarthropathy. Cannot exclude acute fracture.Impression : No evidence of pulmonary embolism Right lower lobe pneumoniasuggested. Incidenta l scarring and retraction in the right hemithorax fromremote/chronic inflammato ry disease and/or trauma. Bibasilar subsegmentalatelectasis. Report Electron ically Signed By: Pawel Zafar M.D. -11/08/2018 12:40 AMXr Chest PortResult D ate: 11/21/2018AP portable film of the chest clinical indication pneumonia Study is c ompared toprevious examination of November 19, 2018. There has been partial clearing o fstreaky changes seen at the right base. There has been interval development ofso me haziness at the left base as well as elevation of the left leaf of thediaphra gm. Heart size is difficult to evaluate.IMPRESSION: 1. Partial clearing of streaks at right base. 2. Haziness at leftbase which may represent infiltrateX r Chest PortResult Date: 11/19/2018History: Respiratory difficulty. FINDINGS: A fron krystian portable view of the chestis compared to the prior study of 11/07/2016. A large ga s-filled structure isnoted beneath the left diaphragm, unchanged, likely representin g the stomach.The cardiac silhouette is normal in size. There is again noted to be shift ofmediastinal structures to the right. There are some streaky and patchy changesat the right lung base not seen on the prior study and the possibility ofin filtrative change cannot be excluded. A few nonspecific left basilar streaksare note d as well. Prominence of the right hilum is unchanged and may merely carlos enrique a result o f the shift of mediastinal structures.IMPRESSION: New patchy opacit y at the right lung base may be infiltrative oratelectatic in nature. Few left basila r streaks are noted as well. Otherwisefindings similar.Xr Chest PortR esult Date: 11/07/2018XR CHEST PORT CLINICAL INDICATION PROVIDED:. "sob." COMPARISON: . 09/26/2015.FINDINGS:. The pericardial/cardiac silhouette is enlarg ed in the transversedimension. There is no pulmonary vascular congestion or interst itial edema.Linear density in the left lung base and faint densities in the right mi d tolower lung likely represent atelectasis. There is no lobar consolidation oreffusi on. There is no pneumothorax.IMPRESSION:. Bilateral lower lung atelectasis. No donna dence of consolidation oreffusion.Xr Abd Port 1 VResult Date: 11/21/2018Abdomen 2 views clinical indication ileus Study is compared to previousexamination of November 20, 2018 . There has been an interval decrease in boweldistention. Increased stool is note d in the rectal region. Skin clips are againnoted.IMPRESSION: 1. Interval decre ase in bowel distention. 2. Increased stool inrectal regionXr Abd Port 1 VResult Da te: 11/20/2018KUB one view(s) History: Ileus. Comparison: Yesterday. There is diffuse ileusof the small and large bowel which has increased involving the small bowel. Air and fecal material is noted in the rectosigmoid colon. The cecum appears to bein the right hemiabdomen but is otherwise unchanged. There is no evidence ofobstru ction, radiopaque gallstones, or kidney stones. The previously noted tubeoverlyi ng the abdomen is no longer seen.IMPRESSION: Increase of small bowel ileus.Medication s reviewedMedication Dose Route Frequency acetaminophen (OFIRMEV) infusion 1,000 m g 1,000 mg IntraVENous Q6H sucralfate (CARAFATE) tablet 1 g 1 g Per G Tube AC &HS methylPREDNISolone (PF) (SOLU-MEDROL) injection 20 mg 20 mg IntraVENous Q8H albuterol-ipratropium (DUO-NEB) 2.5 MG-0.5 MG/3 ML 3 mL Nebulization Q6HWA RT NIRALI azepam (ATIVAN) injection 0.5 mg 0.5 mg IntraVENous QHS vancomycin (VANCOCIN) 1 ,000 mg in 0.9% sodium chloride 250 mL IVPB 1,000 mgIntraVENous Q12H pantoprazole ( PROTONIX) 40 mg in sodium chloride 0.9% 10 mL injection 40 mgIntraVENous Q12H metocl opramide HCl (REGLAN) injection 10 mg 10 mg IntraVENous Q8H piperacillin-tazobactam (ZOSYN) 3.375 g in 0.9% sodium chloride (MBP/ADV) 100mL MBP 3.375 g IntraVENous Q8H valproate (DEPACON) 250 mg in 0.9% sodium chloride 50 mL IVPB 250 mgIntraV ENous Q12H 0.9% sodium chloride 1,000 mL with mvi, adult no.4 with vit K 10 mL, t [id number] mg, folic acid 1 mg infusion IntraVENous Q24H albuterol-ipratropium (DUO-NEB) 2.5 MG-0.5 MG/3 ML 3 mL Nebulization Q4H PRN cinacalcet (SENSIP AR) tablet 60 mg 60 mg Oral DAILY budesonide (PULMICORT) 500 mcg/2 ml nebu lizer suspension 500 mcg NebulizationBID RT Assessment/Plan:Hospital Problems Date Reviewed: 11/27/2018 Codes Class Noted POA COPD (chronic obstructive pulmonary disease) (HCC) ICD-10-CM: J44.9ICD-9-CM: 496 11/08/2018 Unknown Acute respiratory dist ress ICD-10-CM: R06.03ICD-9-CM: 518.82 11/08/2018 Unknown Pneumonia ICD-10-CM: J 18.9ICD-9-CM: 486 11/08/2018 Unknown COPD exacerbation (HCC) ICD-10-CM: J44.1ICD-9 -CM: 491.21 11/08/2018 UnknownAssessment:Ileus - ResolvingTF re started by surgeon todayPOD 5 Gastrostomy tube placementDysphagiaAcute Respiratory failurePE ruled outPost op Leukocytosis- trending downAcute Hypercapnia, Hypoxic respiratory failureRule out sepsis- Cultures NGTDMetabolic acidosis- Resolved Pneumon ia- RLL Acute COPD exacerbationH/o large hiatal herniaGERDSeizureSevere intellect ual disabilityAnxiety disorderLeukocytosis- resolvingChronic Schizophrenia - Plan: TF restarted. Cont O2NC/Bipap per pulm IV solumedrol tapered per pulmSurgery f/u C ontinue PPI Continue IV zosyn and VancomycinnebsF/u culturesdvt prophylaxi s with heparin subcutIv fluidsMitts restraints, prnTWE x1 ordered.Renae Pink 2018Time: 5:11 PM Name Value Range Interpretation Code Description Data Harriett rce(s) Supporting Document(s ) ID Date Data Source [id number] 10/25/2019 12:48:21 PM EDT [facility] Progress NotePatient: Evelio Carlin Sex: male DOA: 11/07/2018Date of : 1950 Age: 68 y.o. :[id number]:Reyes Carlin is 68 y.o. male .who was sent to the ED for hypoxia, with O2SAT of 84 % o n room air, respiratory distress, COPD exacerbation and Pneumonia.He has medica l h/o COPD, requiring intermittent O2 NC, large hiatal hernia,GERD, recurrent aspi ration pneumonia, dysphagia, parkinson disease, epilepsy,(focal),(partial) and Idiopathic, not intractable. Severe intellectualdisability, hyperparathyroid , unspecified, personal h/o pulmonary embolus,anxiety disorder, kyphosis and s chizophrenia.The pt was placed on BIPAP.CTA chest was neg for pulm embolism. Showing decreased size of the rt hemithoraxfrom chronic scarring and retraction with med iastinal shift left to rt.Additional area of consolidation is seen in the RLL an sugg ests superimposedpneumonia with subsegmental atelectasis. Low lung volumes are seen. Labs were remarkable for lactic acidosis as high as 4.1.The pt was admitted with ini tial encounter diag of Acute hypercapnia, hypoxicrespiratory failure, COPD Exacerb ation, Pneumonia RLL, atelectasis and Metabolicacidosis. Also, diag of dysphag ia, seizure, hyperparathyroid, unspecified andintellectual disability are pertinent to this visit.Pt was restless overnight, given iv ativan 0.5 mg with improvement. Pt failed the bedside swallow re eval and the staff has had unsuccessfulattempts at ng t insertion. Seen by gi rec surgical placement of the feeding tube.The pt is nonverbal and is unable to provide a history. He is breathing better. No eduardo nts overnight. Surgery reaching out to family for informed consent; in order to procee d withsurgical gastrostomy tube poss jejunostomy tube placement. Pt is POD 4 placement of surgical gastrostomy tube and trimming of the toe andfingernails.He is afebrileWBC up to 25.4Pt found in acute resp distress by pulmonary, placed on BIPAP a nd transferred toMICU. CXR dated 11/19 with findings of large air distended stomach, unchanged. Newpatchy opacity at the rt lung base may be infiltrative or atelectatic in nature.Few left basilar streaks are noted. + coffee ground emesisPeg hung to gravit y.WBC trending down to 21,000 -->17K AXR dated 11/20 increase of small bowel ileusA XR dated 11/21 interval decrease in bowel distention. Increased stool in rectalreg ion.Seen by gi noting that coffee ground material on yesterday, suspect was due t ostress gastritis. 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 Pupils are equalNeck: Supple, symmetric al, no adenopathy, no carotid bruit and no JVD.Back: Symmetric, No CVA tenderne ss. + KyphosisLungs: Clear to auscultation bilaterally. No Wheezing or Rhonchi. No rales.Chest wall: No Accessory muscle use.Heart: Regular rate and rhythm, n o murmur, or rub.Abdomen: + dsg c/d/i, over peg site. soft, mildy distended, non-ten bassem. Bowelsounds normal. No massesExtremities: Extremities normal, a traumatic, No cyanosis. No edema. No clubbingSkin: Warm and dry. No rashe s or lesions. Not JaundicedLymph nodes: Cervical, supraclavicular normal.Psych: Not agitated.Neurologic: EOMs intact. No facial asymmetry. Non verbal. Generaliz ed weakness,Alert and AwakeIntake and Output:Current Shift:Lab/Data Reviewed:R ecent Days:Lab ResultsComponent Value Date/Time NA 139 11/21/2018 04:20 AM K 3.9 11/21/2018 04:20 AM CL 105 11/21/2018 04:20 AM CO2 30 11/21/2018 04:20 AM AG AP 8 (L) 11/21/2018 04:20 AM GLU 104 11/21/2018 04:20 AM BUN 17 11/21/2018 0 4:20 AM CREA 0.32 (L) 11/21/2018 04:20 AM GFRAA >60 11/21/2018 04:20 AM GFRNA >60 11/21/2018 04:20 AM CA 9.1 11/21/2018 04:20 AM MG 1.7 11/21/2018 04:20 AM ALB 2.2 (L) 11/21/2018 04:20 AM TP 5.1 (L) 11/21/2018 04:20 AM GLOB 2.9 11/21/2018 04:20 AM AGRAT 0.8 11/21/2018 04:20 AM SGOT 21 11/21/2018 04:20 AM ALT 26 /12/2018 04:20 AM CBC:Lab ResultsComponent Value Date/Time WBC 17.1 (H) 11/21/2018 04:20 AM HGB 11.9 (L) 11/21/2018 04:20 AM HCT 34.9 (L) 11/21/2018 04:20 AM PLT 17 1 11/21/2018 04:20 AMXr Abd (kub)Result Date: 11/19/2018XR ABD (KUB)-SINGLE VIEW PRIOR: None HISTORY: Evaluate for G-tube placementFINDINGS: The examination is li mited-the pt is in an AKHTAR/LPO position. A tubeoverlies the abdomen extending from the right lower quadrant to the left upperquadrant and whether this represent s a gastric tube cannot be definitivelydetermined. The bowel gas pa ttern is nonspecific. No abnormally dilated loop ofbowel, bowel wall thickening, pne umatosis or free air is identified. No abnormaldensities or calcifications are identified. There are midline surgical skinstaples identified. The visualized o sseous structures are unremarkable.IMPRESSION: 1. Tube overly ing the abdomen terminating in the region of stomach;as described and discussed above on this single oblique view the exact locationof this tube cannot be determine d. 2. Otherwise unremarkable abdomen/KUB.Cta Chest W Or W Wo ContResult Date: 11/09/19 19Examination: CTA Chest ? PE angiography History: Hypoxia; rule out pneumoniavers us pulmonary embolism Priors: None Technique: Low-dose, multiplanar,helica l CTA chest was performed with bolus IV injection from lung apices tobases. 3D- reformatted images were obtained and reviewed on a dedicated viewingworkstation and di rectly supervised. Contrast: A total of 71 mL of Isovue-370was administered intravenou sly for this procedure. Findings: No evidence ofpulmonary embolism is seen. T here is decreased size of the right hemithorax fromchronic scarring and retr action with mediastinal shift left to right.Additional area of consolidation i s seen in the right lower lobe and suggestssuperimposed pneumonia with subs egmental atelectasis. Subsegmental atelectasisis also noted in the left jorge g base, with pleural parenchymal scarring. Lowlung volumes are seen. No pneumothora x seen. Aorta normal in caliber withoutaneurysm or dissection. Mediastin um no adenopathy. Mediastinal shift is seen inthe left and right as a result of chr onic changes in the right hemithorax.Heart shows no chamber enlargement or pericard ial effusion. No acute fracturesseen in the bony thorax, sternum, manubrium and rib cage. Multiple compressiondeformities are seen in the mid and lower thoracic spine , with superimposedspondyloarthropathy. Cannot exclude acute fracture.Impression : No evidence of pulmonary embolism Right lower lobe pneumoniasuggested. Incidenta l scarring and retraction in the right hemithorax fromremote/chronic inflammato ry disease and/or trauma. Bibasilar subsegmentalatelectasis. Report Electron ically Signed By: Pawel Zafar M.D. -11/08/2018 12:40 AMXr Chest PortResult D ate: 11/19/2018History: Respiratory difficulty. FINDINGS: A frontal portable view of the chestis compared to the prior study of 11/07/2016. A large gas-filled structure isnoted beneath the left diaphragm, unchanged, likely representing the stoma ch.The cardiac silhouette is normal in size. There is again noted to be shift ofmedia stinal structures to the right. There are some streaky and patchy changesat the ri ght lung base not seen on the prior study and the possibility ofinfiltrative change ca nnot be excluded. A few nonspecific left basilar streaksare noted as well. Promin ence of the right hilum is unchanged and may merely carlos enrique a result of the shift of med iastinal structures.IMPRESSION: New patchy opacity at the right lung base may be in filtrative oratelectatic in nature. Few left basilar streaks are noted as well. Other wisefindings similar.Xr Chest PortResult Date: 11/07/2018XR CHEST PORT CLINICAL IN DICATION PROVIDED:. "sob." COMPARISON:. 09/26/2015.FINDINGS:. The pericardial/car diac silhouette is enlarged in the transversedimension. There is no pulmona ry vascular congestion or interstitial edema.Linear density in the left lung ba se and faint densities in the right mid tolower lung likely represent atelectasi s. There is no lobar consolidation oreffusion. There is no pneumothorax.IMP RESSION:. Bilateral lower lung atelectasis. No evidence of consolidation oreffusion. Xr Abd Port 1 VResult Date: 11/20/2018KUB one view(s) History: Ileus. Comparison: Yes terday. There is diffuse ileusof the small and large bowel which has increased invo lving the small bowel. Airand fecal material is noted in the rectosigmoid colon. The cecum appears to bein the right hemiabdomen but is otherwise unchanged. There is no evidence ofobstruction, radiopaque gallstones, or kidney stones. The previo usly noted tubeoverlying the abdomen is no longer seen.IMPRESSION: Increase of smal l bowel ileus.Medications reviewedAssessment/Plan:Hospital Problem s Date Reviewed: 11/27/2018 Codes Class Noted POA COPD (chronic obstructive pulm onary disease) (HCC) ICD-10-CM: J44.9ICD-9-CM: 496 11/08/2018 Unknown Ac manzanita respiratory distress ICD-10-CM: R06.03ICD-9-CM: 518.82 11/08/2018 Unknow n Pneumonia ICD-10-CM: J18.9ICD-9-CM: 486 11/08/2018 Unknown COPD exacerbation (HCC ) ICD-10-CM: J44.1ICD-9-CM: 491.21 11/08/2018 UnknownAssessment:IleusPOD 3 Gastrostomy tube placementDysphagiaAcute Respiratory failurePost op LeukocytosisAcute Hyperca pnia, Hypoxic respiratory failureRule out sepsis- Cultures NGTDMetabolic acidosis- Resolved Pneumonia- RLL Acute COPD exacerbationH/o large hiatal herniaGERDS eizureSevere intellectual disabilityAnxiety disorderLeukocytosis- resolvingChronic S chizophrenia - Plan: Cont O2NC/Bipap per pulm IV solumedrol startedSurgery f/u C ontinue PPI IV zosyn and VancomycinnebsF/u culturesdvt prophylaxis with heparin sub cutIv fluidsMitts restraints, prnPer pulmonary pt's Respiratoy status is stab le for GT/Jejunostomy insertion Renae Gonzalez 2018Time: 5:11 PM Name Value Range Interpretation Code Description Data Harriett rce(s) Supporting Document(s ) ID Date Data Source [id number] 10/25/2019 12:23:00 PM EDT [facility] Name Value Range Interpretation Code Description Data Harriett rce(s) Supporting Document(s ) SARS-CoV-2 [facility] Ql DAVID+probe This lab was ordered by [facility] a nd reported by [facility]. ID Date Data Source [id number] 10/23/2019 01:08:00 PM EDT [facility] Name Value Range Interpretation Code Description Data Harriett rce(s) Supporting Document(s ) SARS-CoV-2 [facility] Ql DAVID+probe This lab was ordered by [facility] a nd reported by [facility]. ID Date Data Source [id number] 10/19/2019 10:41:00 AM EDT [facility] Name Value Range Interpretation Code Description Data Harriett rce(s) Supporting Document(s ) SARS-CoV-2 [facility] Ql DAVID+probe This lab was ordered by [facility] a nd reported by [facility]. ID Date Data Source [id number] 10/10/2019 11:34:00 PM EDT [facility] Name Value Range Interpretation Description Data Sup porting Code Source(s) Document(s ) SARS [facility] CORONAVIRUS 2 RNA This lab was ordered by [facility] and reported by [facility]. ID Date Data Source [id number] 10/08/2019 06:40:00 PM EDT [facility] Name Value Range Interpretation Description Data Sup porting Code Source(s) Document(s ) SARS [facility] CORONAVIRUS 2 RNA This lab was ordered by [facility] and reported by [facility]. ID Date Data Source [id number] 09/28/2019 11:50:00 AM EDT [facility] Name Value Range Interpretation Description Data Sup porting Code Source(s) Document(s ) SARS [facility] CORONAVIRUS 2 RNA This lab was ordered by [facility] and reported by [facility]. ID Date Data Source [id number] 09/13/2019 02:05:00 PM EDT [facility] Name Value Range Interpretation Description Data Sup porting Code Source(s) Document(s ) SARS [facility] CORONAVIRUS 2 RNA This lab was ordered by [facility] and reported by [facility]. ID Date Data Source [id number] 08/24/2019 08:25:07 PM EDT [facility] Progress NotePatient: Evelio Carlin Sex: male DOA: 11/07/2018Date of : 1950 Age: 68 y.o. :[id number]:Reyes Carlin is 68 y.o. male .who was sent to the ED for hypoxia, with O2SAT of 84 % o n room air, respiratory distress, COPD exacerbation and Pneumonia.He has medica l h/o COPD, requiring intermittent O2 NC, large hiatal hernia,GERD, recurrent aspi ration pneumonia, dysphagia, parkinson disease, epilepsy,(focal),(partial) and Idiopathic, not intractable. Severe intellectualdisability, hyperparathyroid , unspecified, personal h/o pulmonary embolus,anxiety disorder, kyphosis and s chizophrenia.The pt was placed on BIPAP.CTA chest was neg for pulm embolism. Showing decreased size of the rt hemithoraxfrom chronic scarring and retraction with med iastinal shift left to rt.Additional area of consolidation is seen in the RLL an sugg ests superimposedpneumonia with subsegmental atelectasis. Low lung volumes are seen. Labs were remarkable for lactic acidosis as high as 4.1.The pt was admitted with ini tial encounter diag of Acute hypercapnia, hypoxicrespiratory failure, COPD Exacerb ation, Pneumonia RLL, atelectasis and Metabolicacidosis. Also, diag of dysphag ia, seizure, hyperparathyroid, unspecified andintellectual disability are pertinent to this visit.Pt was restless overnight, given iv ativan 0.5 mg with improvement. Pt failed the bedside swallow re eval and the staff has had unsuccessfulattempts at ng t insertion. Seen by gi rec surgical placement of the feeding tube.The pt is nonverbal and is unable to provide a history. He is breathing better. No eduardo nts overnight. Surgery reaching out to family for informed consent; in order to procee d withsurgical gastrostomy tube poss jejunostomy tube placement. Pt is POD 3 placement of surgical gastrostomy tube and trimming of the toe andfingernails.He is afebrileWBC up to 25.4Pt found in acute resp distress by pulmonary, placed on BIPAP a nd transferred toMICU. CXR dated 11/19 with findings of large air distended stomach, unchanged. Newpatchy opacity at the rt lung base may be infiltrative or atelectatic in nature.Few left basilar streaks are noted. 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 Pupils are equalNeck: Supple, symmetrical, no stephanie nopathy, no carotid bruit and no JVD.Back: Symmetric, No CVA tenderness. + Kyphos is.Lungs: Clear to auscultation bilaterally. No Wheezing or Rhonchi. No rales.Chest wall: No Accessory muscle use.Heart: Regular rate and rhythm, n o murmur, or rub.Abdomen: +Peg, soft, non-tender. Not distended. Bowel sounds normal. NomassesExtremities: Extremities normal, atraumatic, No cyanosis. No deepthi ma. No clubbingSkin: Warm and dry. No rashes or lesions. Not JaundicedLymph n odes: Cervical, supraclavicular normal.Psych: Not agitated.Neurologic: EOMs intact. N o facial asymmetry. Nonverbal. Generalized strength,Alert and Awake.Intake and Outp ut:Current Shift:Lab/Data Reviewed:Recent Days:Most recent labs:Recent Labs 11/19/1918WBC 20.6* 23.9* 25.4*HGB 12.9* 15.2 15.3HCT 39.0* 45.7 43.5PLT 149 175 224Recent Labs 11/19/1918 0 11/18/1906NA 139 139 -- 140 134*K 4.2 4.4 -- 3.2* 4.2CL 102 98 -- 98 98CO2 32 13* 39* 34* 32GLU 138* 61* -- 168* 110*BUN 18 5* -- 17 11CREA 0.41* 0.52* -- 0.47* 0.49*CA 9.3 7.1* -- 10.5* 9.8MG 1.7 -- -- 1.7 1.8ALB 2.3* 1.4* -- 3.1* 2.5*TBILI 0.8 1.0 -- 1.3* 1.1*SGOT 19 31 -- 33 19ALT 25 38 -- 37 30 Cultures:No results found for: SDESLab ResultsComponent Value Date/Time Cultur e result: NO GROWTH 5 DAYS 11/07/2018 08:10 PM Culture result: NO GROWTH 5 DAYS 08:00 PM Recent Labs 241PH 7.40PCO2 60*PO2 76*HCO3 37*FIO2 45.0 Im ages:Xr Abd (kub)Result Date: 11/19/2018XR ABD (KUB)-SINGLE VIEW PRIOR: None HISTORY: E valuate for G-tube placementFINDINGS: The examination is limited-the pt is in an R AO/LPO position. A tubeoverlies the abdomen extending from the right lower quadrant to the left upperquadrant and whether this represents a gastric tube cannot be defi nitivelydetermined. The bowel gas pattern is nonspecific. No abnormally dilated loop ofbowel, bowel wall thickening, pneumatosis or free air is identified. No abnormalde nsities or calcifications are identified. There are midline surgical skinstaples i dentified. The visualized osseous structures are unremarkable.IMPRESSION: 1. Tube ov erlying the abdomen terminating in the region of stomach;as described and discussed ab ove on this single oblique view the exact locationof this tube cannot be determine d. 2. Otherwise unremarkable abdomen/KUB.Cta Chest W Or W Wo ContResult Date: 11/09/19 19Examination: CTA Chest ? PE angiography History: Hypoxia; rule out pneumoniavers us pulmonary embolism Priors: None Technique: Low-dose, multiplanar,helica l CTA chest was performed with bolus IV injection from lung apices tobases. 3D- reformatted images were obtained and reviewed on a dedicated viewingworkstation and di rectly supervised. Contrast: A total of 71 mL of Isovue-370was administered intravenou sly for this procedure. Findings: No evidence ofpulmonary embolism is seen. T here is decreased size of the right hemithorax fromchronic scarring and retr action with mediastinal shift left to right.Additional area of consolidation i s seen in the right lower lobe and suggestssuperimposed pneumonia with subs egmental atelectasis. Subsegmental atelectasisis also noted in the left jorge g base, with pleural parenchymal scarring. Lowlung volumes are seen. No pneumothora x seen. Aorta normal in caliber withoutaneurysm or dissection. Mediastin um no adenopathy. Mediastinal shift is seen inthe left and right as a result of chr onic changes in the right hemithorax.Heart shows no chamber enlargement or pericard ial effusion. No acute fracturesseen in the bony thorax, sternum, manubrium and rib cage. Multiple compressiondeformities are seen in the mid and lower thoracic spine , with superimposedspondyloarthropathy. Cannot exclude acute fracture.Impression : No evidence of pulmonary embolism Right lower lobe pneumoniasuggested. Incidenta l scarring and retraction in the right hemithorax fromremote/chronic inflammato ry disease and/or trauma. Bibasilar subsegmentalatelectasis. Report Electron ically Signed By: Pawel Zafar M.D. -11/08/2018 12:40 AMXr Chest PortResult D ate: 11/19/2018History: Respiratory difficulty. FINDINGS: A frontal portable view of the chestis compared to the prior study of 11/07/2016. A large gas-filled structure isnoted beneath the left diaphragm, unchanged, likely representing the stoma ch.The cardiac silhouette is normal in size. There is again noted to be shift ofmedia stinal structures to the right. There are some streaky and patchy changesat the ri ght lung base not seen on the prior study and the possibility ofinfiltrative change ca nnot be excluded. A few nonspecific left basilar streaksare noted as well. Promin ence of the right hilum is unchanged and may merely carlos enrique a result of the shift of med iastinal structures.IMPRESSION: New patchy opacity at the right lung base may be in filtrative oratelectatic in nature. Few left basilar streaks are noted as well. Other wisefindings similar.Xr Chest PortResult Date: 11/07/2018XR CHEST PORT CLINICAL IN DICATION PROVIDED:. "sob." COMPARISON:. 09/26/2015.FINDINGS:. The pericardial/car diac silhouette is enlarged in the transversedimension. There is no pulmona ry vascular congestion or interstitial edema.Linear density in the left lung ba se and faint densities in the right mid tolower lung likely represent atelectasi s. There is no lobar consolidation oreffusion. There is no pneumothorax.IMP RESSION:. Bilateral lower lung atelectasis. No evidence of consolidation oreffusion. Medications reviewedvancomycin (VANCOCIN) 1,000 mg in 0.9% sodium chloride 250 mL IVPB 1,000 mgIntraVENous Q12H albuterol-ipratropium (DUO-NEB) 2.5 MG-0 .5 MG/3 ML 3 mL Nebulization Q4H RT methylPREDNISolone (PF) (SOLU-MEDROL) in jection 40 mg 40 mg IntraVENous Q8H pantoprazole (PROTONIX) 40 mg in sodium chloride 0.9% 10 mL injection 40 mgIntraVENous Q12H metoclopramide HCl ( REGLAN) injection 10 mg 10 mg IntraVENous Q8H acetaminophen (OFIRMEV) infusion 1, 000 mg 1,000 mg IntraVENous Q6H LORazepam (ATIVAN) injection 0.5 mg 0.5 mg IntraV ENous QHS piperacillin-tazobactam (ZOSYN) 3.375 g in 0.9% sodium chloride (MBP/ADV ) 100mL MBP 3.375 g IntraVENous Q8H valproate (DEPACON) 250 mg in 0.9% sodiu m chloride 50 mL IVPB 250 mgIntraVENous Q12H 0.9% sodium chloride 1,000 mL with mvi, adult no.4 with vit K 10 mL, [id number] mg, folic acid 1 mg infusion IntraVENous Q 24H albuterol-ipratropium (DUO-NEB) 2.5 MG-0.5 MG/3 ML 3 mL Nebulization Q4H TN N cinacalcet (SENSIPAR) tablet 60 mg 60 mg Oral DAILY budesonide (PULMICORT) 500 m cg/2 ml nebulizer suspension 500 mcg NebulizationBID RT Assessment/Plan:Hospi krystian Problems Date Reviewed: 11/27/2018 Codes Class Noted POA COPD (chronic obst ructive pulmonary disease) (HCC) ICD-10-CM: J44.9ICD-9-CM: 496 11/08/2018 Unknown Ac manzanita respiratory distress ICD-10-CM: R06.03ICD-9-CM: 518.82 11/08/2018 Unknow n Pneumonia ICD-10-CM: J18.9ICD-9-CM: 486 11/08/2018 Unknown COPD exacerbation (HCC ) ICD-10-CM: J44.1ICD-9-CM: 491.21 11/08/2018 UnknownAssessment:POD 3 Gastrostomy tube placementDysphagiaAcute Respiratory failurePost op LeukocytosisAcute Hyperca pnia, Hypoxic respiratory failureRule out sepsis- Cultures NGTDMetabolic acidosis- Resolved Pneumonia- RLL Acute COPD exacerbationH/o large hiatal herniaGERDS eizureSevere intellectual disabilityAnxiety disorderLeukocytosis- resolvingChronic S chizophrenia - -Plan: Cont O2NC/Bipap per pulm IV solumedrol startedSurgery f /u Continue PPI IV zosyn and VancomycinnebsF/u culturesdvt prophylaxi s with heparin subcutIv fluidsMitts restraints, prPer pulmonary pt's Respira toy status is stable for GT/Jejunostomy insertionSRenae Alberts 15, 20 19Time: 5:10 PM Name Value Range Interpretation Code Description Data Harriett rce(s) Supporting Document(s ) ID Date Data Source [id number] 08/24/2019 04:13:18 PM EDT [facility] Progress NotePatient: Evelio Carlin Sex: male DOA: 11/07/2018Date of : 1950 Age: 68 y.o. :[id number]:Reyes Carlin is 68 y.o. male .who was sent to the ED for hypoxia, with O2SAT of 84 % o n room air, respiratory distress, COPD exacerbation and Pneumonia.He has medica l h/o COPD, requiring intermittent O2 NC, large hiatal hernia,GERD, recurrent aspi ration pneumonia, dysphagia, parkinson disease, epilepsy,(focal),(partial) and Idiopathic, not intractable. Severe intellectualdisability, hyperparathyroid , unspecified, personal h/o pulmonary embolus,anxiety disorder, kyphosis and s chizophrenia.The pt was placed on BIPAP.CTA chest was neg for pulm embolism. Showing decreased size of the rt hemithoraxfrom chronic scarring and retraction with med iastinal shift left to rt.Additional area of consolidation is seen in the RLL an sugg ests superimposedpneumonia with subsegmental atelectasis. Low lung volumes are seen. Labs were remarkable for lactic acidosis as high as 4.1.The pt was admitted with ini tial encounter diag of Acute hypercapnia, hypoxicrespiratory failure, COPD Exacerb ation, Pneumonia RLL, atelectasis and Metabolicacidosis. Also, diag of dysphag ia, seizure, hyperparathyroid, unspecified andintellectual disability are pertinent to this visit.Pt was restless overnight, given iv ativan 0.5 mg with improvement. Pt failed the bedside swallow re eval and the staff has had unsuccessfulattempts at ng t insertion. Seen by gi rec surgical placement of the feeding tube.The pt is nonverbal and is unable to provide a history. He is breathing better. No eduardo nts overnight. Surgery reaching out to family for informed consent; in order to procee d withsurgical gastrostomy tube poss jejunostomy tube placement. Pt is POD 2 placement of surgical gastrostomy tube and trimming of the toe andfingernails.He is afebrileWBC up to 25.4Pt found in acute resp distress by pulmonary, placed on BIPAP a nd transferred toMICU. 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 Pupils are equalNeck: Supple, symmetrical, no adenopathy, no carotid bruit and no JVD.Back: Symmetric, No CVA tenderness.+ kyphosisLungs: Cl ear to auscultation bilaterally. No Wheezing or Rhonchi. No rales.Chest wall: No Ac cessory muscle use.Heart: Regular rate and rhythm, no murmur, or rub.Abdomen: ds g c/d/i, Not distended. Bowel sounds normal.Extremities: Extremities normal, atraumatic, No cyanosis. No edema. No clubbingSkin: Warm and dry. No rash es or lesions. Not JaundicedLymph nodes: Cervical, supraclavicular normal.Psych: Not agitated.Neurologic: EOMs intact. No facial asymmetry. Non verbal Generalize d weakness,Alert and Awake.Intake and Output:Current Shift:Lab/Data Reviewed:R ecent Days:Lab Data Reviewed: CBC w/DiffRecent Labs 11/18/18 0742 WBC 25.4* 18.9* 9.5HGB 15.3 14.9 14.6HCT 43.5 41.9* 41.7*MCV 95.4* 9 3.9 92.9PLT 224 207 210GRANS PENDING 89* 64LYMPH PENDING 7* 30EOS PENDING 0 -- C hemistryRecent Labs 11/18/1906GLU 168* 110* 9 3NA 140 134* 139K 3.2* 4.2 4.4CL 98 98 103CO2 34* 32 28BUN 17 11 14CREA 0.47* 0.49* 0. 41* Recent Labs 11/18/19066CA 10.5* 9.8 9.8PHOS -- - - 2.9ALB 3.1* 2.5* 2.9*TBILI 1.3* 1.1* 1.0AP 56 44* 47SGOT 33 19 18ALT 37 30 30 Coagu lation No results for input(s): PTP, INR, APTT in the last 72 hours. No lab exists for component: INREXT Cta Chest W Or W Wo ContResult Date: 11/08/2018Examination : CTA Chest ? PE angiography History: Hypoxia; rule out pneumoniaversus pulmon connor embolism Priors: None Technique: Low-dose, multiplanar,helical CTA chest was performed with bolus IV injection from lung apices tobases. 3D-reformatted katja ges were obtained and reviewed on a dedicated viewingworkstation and directly supervis ed. Contrast: A total of 71 mL of Isovue-370was administered intravenously for this procedure. Findings: No evidence ofpulmonary embolism is seen. There is d ecreased size of the right hemithorax fromchronic scarring and retraction with mediastinal shift left to right.Additional area of consolidation is seen in the rig ht lower lobe and suggestssuperimposed pneumonia with subsegmental atelectasis. Subsegmental atelectasisis also noted in the left lung base, with pleural parench ymal scarring. Lowlung volumes are seen. No pneumothorax seen. Aorta normal in calib er withoutaneurysm or dissection. Mediastinum no adenopathy. Mediastinal shift is see n inthe left and right as a result of chronic changes in the right hemithorax. Heart shows no chamber enlargement or pericardial effusion. No acute fractures seen in the bony thorax, sternum, manubrium and rib cage. Multiple compressiondefor mities are seen in the mid and lower thoracic spine, with superimposedspondyloarthropa thy. Cannot exclude acute fracture.Impression: No evidence of pul monary embolism Right lower lobe pneumoniasuggested. Incidental scarring and retraction in the right hemithorax fromremote/chronic inflammatory disease and/or trauma. Bibasilar subsegmentalatelectasis. Report Electron ically Signed By: Pawel Zafar M.D. -11/08/2018 12:40 AMXr Chest PortResult D ate: 11/07/2018XR CHEST PORT CLINICAL INDICATION PROVIDED:. "sob." COMPARISON: . 09/26/2015.FINDINGS:. The pericardial/cardiac silhouette is enlarg ed in the transversedimension. There is no pulmonary vascular congestion or interst itial edema.Linear density in the left lung base and faint densities in the right mi d tolower lung likely represent atelectasis. There is no lobar consolidation oreffusi on. There is no pneumothorax.IMPRESSION:. Bilateral lower lung atelectasis. No donna dence of consolidation oreffusion.Medications reviewedMedication Dose Route Frequency potassium chloride 10 mEq in 100 ml IVPB 10 mEq IntraVENous Q1H vancomycin (VANCOCI N) 1,000 mg in 0.9% sodium chloride 250 mL IVPB 1,000 mgIntraVENous Q12H albutero l-ipratropium (DUO-NEB) 2.5 MG-0.5 MG/3 ML 3 mL Nebulization Q4H RT methylPREDNISolo ne (PF) (SOLU-MEDROL) injection 40 mg 40 mg IntraVENous Q8H acetaminophen (OFIRMEV) infusion 1,000 mg 1,000 mg IntraVENous Q6H LORazepam (ATIVAN) injection 0.5 mg 0.5 mg IntraVENous QHS piperacillin-tazobactam (ZOSYN) 3.375 g in 0.9% sodium chloride (MBP/ADV) 100mL MBP 3.375 g IntraVENous Q8H HYDROmorphone (DILAUDID) syringe 0.5 mg 0.5 mg IntraVENous Q6H PRN valproate (DEPACON) 250 mg in 0.9% sodium chloride 50 mL IVPB 250 mgIntraVENous Q12H 0.9% sodium chloride 1,000 mL with mvi, adult no.4 with vit K 10 mL, [id number] mg, folic acid 1 mg infusion IntraVENous Q24H a lbuterol-ipratropium (DUO-NEB) 2.5 MG-0.5 MG/3 ML 3 mL Nebulization Q4H PRN cina calcet (SENSIPAR) tablet 60 mg 60 mg Oral DAILY budesonide (PULMICORT) 500 mcg/2 ml nebulizer suspension 500 mcg NebulizationBID RT Assessment/Plan:Hospi krystian Problems Date Reviewed: 11/27/2018 Codes Class Noted POA COPD (chronic obst ructive pulmonary disease) (HCC) ICD-10-CM: J44.9ICD-9-CM: 496 11/08/2018 Unknown Ac manzanita respiratory distress ICD-10-CM: R06.03ICD-9-CM: 518.82 11/08/2018 Unknow n Pneumonia ICD-10-CM: J18.9ICD-9-CM: 486 11/08/2018 Unknown COPD exacerbation (HCC ) ICD-10-CM: J44.1ICD-9-CM: 491.21 11/08/2018 UnknownAssessment:POD 2 Gastrostomy tube placementDysphagiaAcute Respiratory failurePost op LeukocytosisAcute Hyperca pnia, Hypoxic respiratory failureRule out sepsis- Cultures NGTDMetabolic acidosis- Resolved Pneumonia- RLL Acute COPD exacerbationH/o large hiatal herniaGERDS eizureSevere intellectual disabilityAnxiety disorderLeukocytosis- resolvingChronic S chizophrenia -Plan:Transfer to MICU per pulm Tube feedings placed on Hold Cont O2NC/Bipap per pulm IV solumedrol startedSurgery f/uF/u chest XR and KUB I V zosynRocephin and azithro DC'dnebsF/u culturesdvt prophylaxis with heparin sub cutIv fluidsMitts restraints, prPer pulmonary pt's Respiratoy status is stable for GT/ Jejunostomy insertionSRenae Alberts 2018Time: 5:10 PM Name Value Range Interpretation Code Description Data Harriett rce(s) Supporting Document(s ) ID Date Data Source [id number] 08/24/2019 03:37:05 PM EDT [facility] NotePatient: Evelio Carlin Sex: male DOA: 11/07/2018Date of : 1950 Age: 68 y.o. :[id number]:Reyes Carlin is 68 y.o. male who was sent to the ED for hypoxia, with O2SAT of 84 % o n room air, respiratory distress, COPD exacerbation and Pneumonia.He has medica l h/o COPD, requiring intermittent O2 NC, large hiatal hernia,GERD, recurrent aspi ration pneumonia, dysphagia, parkinson disease, epilepsy,(focal),(partial) and Idiopathic, not intractable. Severe intellectualdisability, hyperparathyroid , unspecified, personal h/o pulmonary embolus,anxiety disorder, kyphosis and s chizophrenia.The pt was placed on BIPAP.CTA chest was neg for pulm embolism. Showing decreased size of the rt hemithoraxfrom chronic scarring and retraction with med iastinal shift left to rt.Additional area of consolidation is seen in the RLL an sugg ests superimposedpneumonia with subsegmental atelectasis. Low lung volumes are seen. Labs were remarkable for lactic acidosis as high as 4.1.The pt was admitted with in tial encounter diag of Acute hypercapnia, hypoxicrespiratory failure, COPD Exacerb ation, Pneumonia RLL, atelectasis and Metabolicacidosis. Also, diag of dysphag ia, seizure, hyperparathyroid, unspecified andintellectual disability are pertinent to this visit.Pt was restless overnight, given iv ativan 0.5 mg with improvement. Pt failed the bedside swallow re eval and the staff has had unsuccessfulattempts at ng t insertion. Seen by gi rec surgical placement of the feeding tube.The pt is nonverbal and is unable to provide a history. He is breathing better. No eduardo nts overnight. Surgery reaching out to family for informed consent; in order to procee d withsurgical gastrostomy tube poss jejunostomy tube placement. 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 Pupils are equalNeck: Supple, symmetrical, no adenopathy, no carotid bruit and no JVD.Back: Symmetric, No CVA tenderness. + KyphosisLungs: C lear to auscultation bilaterally. No Wheezing or Rhonchi. No rales.Chest wall : No Accessory muscle use.Heart: Regular rate and rhythm, no murmur, or rub.Abdo men: Soft, non-tender. Not distended. Bowel sounds normal. No massesExtremitie s: Extremities normal, atraumatic, No cyanosis. No edema. No clubbingSkin: Warm and dry. No rashes or lesions. Not JaundicedLymph nodes: Cervical, supracla vicular normal.Psych: Not agitated.Neurologic: EOMs intact. No fac ial asymmetry. Non verbal. Generalized weakness,Awake and Alert.Intake and Outp ut:Current Shift:Lab/Data Reviewed:Recent Days:Most recent labs:Recent Labs 11/17/1905WBC 18.9* 9.5 10.2HGB 14.9 14.6 15.6HCT 41.9* 41.7 * 43.4PLT 207 210 249 Recent Labs 11/17/1905NA 134* 139 138K 4.2 4.4 4.2CL 98 103 102CO2 32 28 28GLU 110* 93 98BUN 11 14 13CREA 0.49 * 0.41* 0.51*CA 9.8 9.8 9.9MG 1.8 1.9 1.9PHOS -- 2.9 2.9ALB 2.5* 2.9* 3.0*TBILI 1.1* 1.0 1.0SGOT 19 18 20ALT 30 30 31 Images:Cta Chest W Or W Wo ContResult Date: 11/09/19 19Examination: CTA Chest ? PE angiography History: Hypoxia; rule out pneumoniavers us pulmonary embolism Priors: None Technique: Low-dose, multiplanar,helica l CTA chest was performed with bolus IV injection from lung apices tobases. 3D- reformatted images were obtained and reviewed on a dedicated viewingworkstation and di rectly supervised. Contrast: A total of 71 mL of Isovue-370was administered intravenou sly for this procedure. Findings: No evidence ofpulmonary embolism is seen. T here is decreased size of the right hemithorax fromchronic scarring and retr action with mediastinal shift left to right.Additional area of consolidation i s seen in the right lower lobe and suggestssuperimposed pneumonia with subs egmental atelectasis. Subsegmental atelectasisis also noted in the left jorge g base, with pleural parenchymal scarring. Lowlung volumes are seen. No pneumothora x seen. Aorta normal in caliber withoutaneurysm or dissection. Mediastin um no adenopathy. Mediastinal shift is seen inthe left and right as a result of chr onic changes in the right hemithorax.Heart shows no chamber enlargement or pericard ial effusion. No acute fracturesseen in the bony thorax, sternum, manubrium and rib cage. Multiple compressiondeformities are seen in the mid and lower thoracic spine , with superimposedspondyloarthropathy. Cannot exclude acute fracture.Impression : No evidence of pulmonary embolism Right lower lobe pneumoniasuggested. Incidenta l scarring and retraction in the right hemithorax fromremote/chronic inflammato ry disease and/or trauma. Bibasilar subsegmentalatelectasis. Report Electron ically Signed By: Pawel Zafar M.D. -11/08/2018 12:40 AMXr Chest PortResult D ate: 11/07/2018XR CHEST PORT CLINICAL INDICATION PROVIDED:. "sob." COMPARISON: . 09/26/2015.FINDINGS:. The pericardial/cardiac silhouette is enlarg ed in the transversedimension. There is no pulmonary vascular congestion or interst itial edema.Linear density in the left lung base and faint densities in the right mi d tolower lung likely represent atelectasis. There is no lobar consolidation oreffusi on. There is no pneumothorax.IMPRESSION:. Bilateral lower lung atelectasis. No donna dence of consolidation oreffusion.Medications reviewed acetaminophen (OFIRMEV) infusi on 1,000 mg 1,000 mg IntraVENous Q6H LORazepam (ATIVAN) injection 0.5 mg 0.5 mg IntraVENous QHS [START ON 11/19/2018] predniSONE (DELTASONE) tablet 10 mg 10 mg Oral DAILY WITHBREAKFAST [START ON 11/22/2018] predniSONE (DELTASONE) tablet 5 mg 5 mg Oral DAILY WITHBREAKFAST HYDROmorphone (DILAUDID) syringe 0.5 mg 0.5 mg IntraVENous Q6H PRN albuterol-ipratropium (DUO-NEB) 2.5 MG-0 .5 MG/3 ML 3 mL Nebulization Q6HWA RT valproate (DEPACON) 250 mg in 0.9% sodiu m chloride 50 mL IVPB 250 mgIntraVENous Q12H 0.9% sodium chloride 1,000 mL with mvi, adult no.4 with vit K 10 mL, [id number] mg, folic acid 1 mg infusion IntraVENous Q 24H albuterol-ipratropium (DUO-NEB) 2.5 MG-0.5 MG/3 ML 3 mL Nebulization Q4H TN N cinacalcet (SENSIPAR) tablet 60 mg 60 mg Oral DAILY budesonide (PULMICORT) 500 m cg/2 ml nebulizer suspension 500 mcg NebulizationBID RT Assessment/Plan:Hosp ital Problems Date Reviewed: 11/27/2018 Codes Class Noted POA COPD (chronic obst ructive pulmonary disease) (HCC) ICD-10-CM: J44.9ICD-9-CM: 496 11/08/2018 Unknown Ac manzanita respiratory distress ICD-10-CM: R06.03ICD-9-CM: 518.82 11/08/2018 Unknow n Pneumonia ICD-10-CM: J18.9ICD-9-CM: 486 11/08/2018 Unknown COPD exacerbation ([facility] ) ICD-10-CM: J44.1ICD-9-CM: 491.21 11/08/2018 UnknownAssessment:POD 1 Gastrostomy tube placementDDysphagiaPost op LeukocytosisAcute Hypercapnia, Hypoxic respiratory failure Rule out sepsis- Cultures NGTDMetabolic acidosis- Resolved Pneumonia- RLL Acute COPD exacerbationH/o large hiatal herniaGERDSeizureSevere intellectual dis abilityAnxiety disorderLeukocytosis- resolvingChronic SchizophreniaPlan:Tube feedings as ordered, residual check as ordered by surg Cont O2NC/Bipap per pul m Taper prednisoneSurgery f/uStarted on IV zosynRocephin and azithro DC'dnebsSwallo w re evalF/u culturesdvt prophylaxis with heparin subcutIv fluidsMitts restraints, prPer pulmonary pt's Respiratoy status is stable for GT/Jejunostomy insertionShirRenae Hartman 2018Time: 5:09 PM Name Value Range Interpretation Code Description Data Harriett rce(s) Supporting Document(s ) ID Date Data Source [id number] 08/24/2019 03:00:09 PM EDT [facility] Progress NotePatient: Evelio Carlin Sex: male DOA: 11/07/2018Date of : 1950 Age: 68 y.o. :[id number]:Reyes Carlin is 68 y.o. male Who is s/p Placement of surgical gastrostomytube an d trimming of the toe and fingernails today. Patient tolerated procedurewell.Pt is cu rrently lethargic, but easily arousable.He was sent to the ED for hypoxia, with O2 SAT of 84 % on room air, respiratorydistress, COPD exacerbation and Pneumonia.He has m edical h/o COPD, requiring intermittent O2 NC, large hiatal hernia,GERD, recurrent aspiration pneumonia, dysphagia, parkinson disease, epilepsy,(focal),(partial) and Idiopathic, not intractable. Severe intellectualdisability, hyperparathyroid , unspecified, personal h/o pulmonary embolus,anxiety disorder, kyphosis and s chizophrenia.The pt was placed on BIPAP.CTA chest was neg for pulm embolism. Showing decreased size of the rt hemithoraxfrom chronic scarring and retraction with med iastinal shift left to rt.Additional area of consolidation is seen in the RLL an sugg ests superimposedpneumonia with subsegmental atelectasis. Low lung volumes are seen. Labs were remarkable for lactic acidosis as high as 4.1.The pt was admitted with ini tial encounter diag of Acute hypercapnia, hypoxicrespiratory failure, COPD Exacerb ation, Pneumonia RLL, atelectasis and Metabolicacidosis. Also, diag of dysphag ia, seizure, hyperparathyroid, unspecified andintellectual disability are pertinent to this visit.Pt was restless overnight, given iv ativan 0.5 mg with improvement. Pt failed the bedside swallow re eval and the staff has had unsuccessfulattempts at ng t insertion. Seen by gi rec surgical placement of the feeding tube.The pt is nonverbal and is unable to provide a history. He is breathing better. No eduardo nts overnight. Surgery reaching out to family for informed consent; in order to procee d withsurgical gastrostomy tube poss jejunostomy tube placement. 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 ) 58 20 -11/17/18 0358 142/90 96.9 F (36.1 C) 87 18 94 %11/16/182009 122/64 96.9 F (36.1 C) 82 18 96 %11/16/18 1547 119/59 98.3 F (36.8 C) 69 18 96 %PHYSICAL EXA M:General: Lethargic easily arousable, no distress, appears stated age.Head: Nor mocephalic, without obvious abnormality, atraumatic.Eyes: Conjunctivae clear, a nicteric sclerae. Pupils are equalNeck: Supple, symmetrical, no adenopathy, no carotid bruit and no JVD.Back: Symmetric, No CVA tenderness. + Kyphosis.Lungs: Clear to auscultation bilaterally. No Wheezing or Rhonchi. No rales.Chest wall : No Accessory muscle use.Heart: Regular rate and rhythm, no murmur, or rub.Abdo men: + abdominal binder. Not distended.Extremities: Extremities jazzmine l, atraumatic, No cyanosis. No edema. No clubbingSkin: Warm and dry. No rashe s or lesions. Not JaundicedLymph nodes: Cervical, supraclavicular normal.Psych: Not agitated.Neurologic: EOMs intact. No facial asymmetry. Non verbal, generalize d weakiness,Alert and Awake.Intake and Output:Current Shift:Lab/Data Reviewed:R ecent Days:Recent ResultsRecent Results (from the past 24 hour(s))MAGNESIUM Collectio n Time: 11/17/18 6:06 AMResult Value Ref Range Magnesium 1.9 1.6 - 2.6 mg/dLPHOS PHORUS Collection Time: 11/17/18 6:06 AMResult Value Ref Range Phosphorus 2.9 2.5 - 4.9 mg/dLCBC WITH AUTOMATED DIFF Collection Time: 11/17/18 6:06 AMResult Value Ref Range WBC 9.5 4.8 - 10.6 K/uL RBC 4.49 (L) 4.70 - 6.00 M/uL HGB 14.6 14.0 - 18.0 g/dL HCT 41.7 (L) 42.0 - 52.0 % MCV 92.9 81.0 - 94.0 FL MCH 32.5 27.0 - 35.0 PG MCHC 35.0 30.7 - 37.3 g/dL RDW 13.8 11.5 - 14.0 % PLATELET 210 130 - 4 00 K/uL MPV 9.7 9.2 - 11.8 FL NEUTROPHILS 64 48 - 72 % LYMPHOCYTES 30 18 - 40 % MONOCYTES 6 2 - 12 % RBC COMMENTS NORMOCYTIC, NORMOCHROMIC PLATELET ESTIM ATE ADEQUATE DF MANUALMETABOLIC PANEL, COMPREHENSIVE Collection Time: 11/17/18 6:06 AMResult Value Ref Range Sodium 139 136 - 145 mmol/L Potassium 4.4 3.5 - 5. 1 mmol/L Chloride 103 98 - 107 mmol/L CO2 28 21 - 32 mmol/L Anion gap 12 10 - 20 mmol/L Glucose 93 74 - 106 mg/dL BUN 14 7 - 18 mg/dL Creatinine 0.41 (L) 0.70 - 1.3 0 mg/dL GFR est AA >60 >60 ml/min/1.73m2 GFR est non-AA >60 >60 ml/min/1.73m2 Ca lcium 9.8 8.5 - 10.1 mg/dL Bilirubin, total 1.0 0.2 - 1.0 mg/dL ALT (SGPT) 30 13 - 61 U/L AST (SGOT) 18 15 - 37 U/L Alk. phosphatase 47 45 - 117 U/L Protein, to krystian 6.1 (L) 6.4 - 8.2 g/dL Albumin 2.9 (L) 3.5 - 4.7 g/dL Globulin 3.2 1.7 - 4.7 g /dL A-G Ratio 0.9 0.7 - 2.8Cta Chest W Or W Wo ContResult Date: 11/08/2018Examination : CTA Chest ? PE angiography History: Hypoxia; rule out pneumoniaversus pulmon connor embolism Priors: None Technique: Low-dose, multiplanar,helical CTA chest was performed with bolus IV injection from lung apices tobases. 3D-reformatted katja ges were obtained and reviewed on a dedicated viewingworkstation and directly supervis ed. Contrast: A total of 71 mL of Isovue-370was administered intravenously for this procedure. Findings: No evidence ofpulmonary embolism is seen. There is d ecreased size of the right hemithorax fromchronic scarring and retraction with mediastinal shift left to right.Additional area of consolidation is seen in the rig ht lower lobe and suggestssuperimposed pneumonia with subsegmental atelectasis. Subsegmental atelectasisis also noted in the left lung base, with pleural parench ymal scarring. Lowlung volumes are seen. No pneumothorax seen. Aorta normal in calib er withoutaneurysm or dissection. Mediastinum no adenopathy. Mediastinal shift is see n inthe left and right as a result of chronic changes in the right hemithorax. Heart shows no chamber enlargement or pericardial effusion. No acute fractures seen in the bony thorax, sternum, manubrium and rib cage. Multiple compressiondefor mities are seen in the mid and lower thoracic spine, with superimposedspondyloarthropa thy. Cannot exclude acute fracture.Impression: No evidence of pul monary embolism Right lower lobe pneumoniasuggested. Incidental scarring and retraction in the right hemithorax fromremote/chronic inflammatory disease and/or trauma. Bibasilar subsegmentalatelectasis. Report Electron ically Signed By: Pawel Zafar M.D. -11/08/2018 12:40 AMXr Chest PortResult D ate: 11/07/2018XR CHEST PORT CLINICAL INDICATION PROVIDED:. "sob." COMPARISON: . 09/26/2015.FINDINGS:. The pericardial/cardiac silhouette is enlarg ed in the transversedimension. There is no pulmonary vascular congestion or interst itial edema.Linear density in the left lung base and faint densities in the right mi d tolower lung likely represent atelectasis. There is no lobar consolidation oreffusi on. There is no pneumothorax.IMPRESSION:. Bilateral lower lung atelectasis. No donna dence of consolidation oreffusion.Medications reviewedCurrent Facility-Administered Me dicationsMedication Dose Route Frequency LORazepam (ATIVAN) injection 0.5 mg 0.5 mg IntraVENous QHS albuterol-ipratropium (DUO-NEB) 2.5 MG-0.5 MG/3 ML 3 mL Nebul ization Q6HWA RT valproate (DEPACON) 250 mg in 0.9% sodium chloride 50 mL IVPB 250 mgIntraVENous Q12H methylPREDNISolone (PF) (SOLU-MEDROL) injection 20 mg 20 mg Int raVENous Q12H 0.9% sodium chloride 1,000 mL with mvi, adult no.4 with vit K 10 mL, t [id number] mg, folic acid 1 mg infusion IntraVENous Q24H dextrose 5 % - 0.45% N aCl infusion 50 mL/hr IntraVENous CONTINUOUS albuterol-ipratropium (DUO-NEB) 2.5 MG- 0.5 MG/3 ML 3 mL Nebulization Q4H PRN cinacalcet (SENSIPAR) tablet 60 mg 60 m g Oral DAILY budesonide (PULMICORT) 500 mcg/2 ml nebulizer suspension 500 mcg N ebulizationBID RT Assessment/Plan:Hospital Problems Date Reviewed: 11/27/2018 Codes Class Noted POA COPD (chronic obstructive pulmonary disease) (HCC) ICD -10-CM: J44.9ICD-9-CM: 496 11/08/2018 Unknown Acute respiratory distress ICD-10-CM: R0 6.03ICD-9-CM: 518.82 11/08/2018 Unknown Pneumonia ICD-10-CM: J18.9ICD-9-CM: 486 11/08/2018 Unknown COPD exacerbation (HCC) ICD-10-CM: J44.1ICD-9-CM: 491.21 019 UnknownAssessment:Acute Hypercapnia, Hypoxic respiratory failureRule out seps is- Cultures NGTDMetabolic acidosis Pneumonia- RLL Acute COPD exacerbationDy sphagiaH/o large hiatal herniaGERDSeizureSevere intellectual dis abilityAnxiety disorderLeukocytosis- resolvingChronic Schizophrenia Plan: Con t O2NC/Bipap per pulm off steroidsnebsSwallow re evalCont iv zithro and rocephinF/u cu lturesdvt prophylaxis with heparin subcutCont iv fluids w mvi, folic acid, thiamineD/w pt uncle (ENT physician) per report , who is request ngt insertion for Nutrition.Mitt s restraints, prPer pulmonary pt's Respiratoy status is stable for GT/Jejunostomy inse ionSRenae Alberts 2018Time: 5:08 PM Name Value Range Interpretation Code Description Data Harriett rce(s) Supporting Document(s ) ID Date Data Source [id number] 08/24/2019 02:24:50 PM EDT [facility] NotePatient: Evelio Carlin Sex: male DOA: 11/07/2018Date of : 1950 Age: 68 y.o. :[id number]:Reyes Carlin is 68 y.o. male who was sent to the ED for hypoxia, with O2SAT of 84 % o n room air, respiratory distress, COPD exacerbation and Pneumonia.He has medica l h/o COPD, requiring intermittent O2 NC, large hiatal hernia,GERD, recurrent aspi ration pneumonia, dysphagia, parkinson disease, epilepsy,(focal),(partial) and Idiopathic, not intractable. Severe intellectualdisability, hyperparathyroid , unspecified, personal h/o pulmonary embolus,anxiety disorder, kyphosis and s chizophrenia.The pt was placed on BIPAP.CTA chest was neg for pulm embolism. Showing decreased size of the rt hemithoraxfrom chronic scarring and retraction with med iastinal shift left to rt.Additional area of consolidation is seen in the RLL an sugg ests superimposedpneumonia with subsegmental atelectasis. Low lung volumes are seen. Labs were remarkable for lactic acidosis as high as 4.1.The pt was admitted with ini tial encounter diag of Acute hypercapnia, hypoxicrespiratory failure, COPD Exacerb ation, Pneumonia RLL, atelectasis and Metabolicacidosis. Also, diag of dysphag ia, seizure, hyperparathyroid, unspecified andintellectual disability are pertinent to this visit.Pt was restless overnight, given iv ativan 0.5 mg with improvement. Pt failed the bedside swallow re eval and the staff has had unsuccessfulattempts at ng t insertion. Seen by gi rec surgical placement of the feeding tube.The pt is nonverbal and is unable to provide a history. He is breathing better. 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 Pupils are equalNeck: Supple, symmetric al, no adenopathy, no carotid bruit and no JVD.Back: Symmetric, No CVA tenderne ss.Lungs: Clear to auscultation bilaterally. No Wheezing or Rhonchi. No rales.Chest wall: No Accessory muscle use.Heart: Regular rate and rhythm, n o murmur, or rub.Abdomen: Soft, non-tender. Not distended. Bowel sounds normal. No massesExtremities: Extremities normal, atraumatic, No cyanosis. No edema. No c lubbingSkin: Warm and dry. No rashes or lesions. Not JaundicedLymph nodes: Cerv ical, supraclavicular normal.Psych: Not agitated.Neurologic: EOMs intact. No fac ial asymmetry. Non verbal, generalized weakness,Awake and Alert.Intake and Out put:Lab/Data Reviewed:Recent Days:Recent Labs 11/15/1904W BC 10.2 10.4 11.0*HGB 15.6 15.2 15.8PLT 249 233 251BUN 13 15 14CREA 0.51* 0.42* 0.46 *SGOT 20 17 25AP 48 44* 44*TBILI 1.0 0.8 0.7 Cultures:Lab ResultsComponent Value Date /Time Culture result: NO GROWTH 5 DAYS 11/07/2018 08:10 PM Culture result: NO GROWTH 5 DAYS 11/07/2018 08:00 PM Radiology:Cta Chest W Or W Wo ContResult Date: 11/08/2018Examination: CTA Chest ? PE angiography History: Hypoxia; rule out p neumoniaversus pulmonary embolism Priors: None Technique: Low-dose, multiplanar,h elical CTA chest was performed with bolus IV injection from lung apices tobases. 3D- reformatted images were obtained and reviewed on a dedicated viewingworkstation and di rectly supervised. Contrast: A total of 71 mL of Isovue-370was administered intravenou sly for this procedure. Findings: No evidence ofpulmonary embolism is seen. T here is decreased size of the right hemithorax fromchronic scarring and retr action with mediastinal shift left to right.Additional area of consolidation i s seen in the right lower lobe and suggestssuperimposed pneumonia with subs egmental atelectasis. Subsegmental atelectasisis also noted in the left jorge g base, with pleural parenchymal scarring. Lowlung volumes are seen. No pneumothora x seen. Aorta normal in caliber withoutaneurysm or dissection. Mediastin um no adenopathy. Mediastinal shift is seen inthe left and right as a result of chr onic changes in the right hemithorax.Heart shows no chamber enlargement or pericard ial effusion. No acute fracturesseen in the bony thorax, sternum, manubrium and rib cage. Multiple compressiondeformities are seen in the mid and lower thoracic spine , with superimposedspondyloarthropathy. Cannot exclude acute fracture.Impression : No evidence of pulmonary embolism Right lower lobe pneumoniasuggested. Incidenta l scarring and retraction in the right hemithorax fromremote/chronic inflammato ry disease and/or trauma. Bibasilar subsegmentalatelectasis. Report Electron ically Signed By: Pawel Zafar M.D. -11/08/2018 12:40 AMXr Chest PortResult D ate: 11/07/2018XR CHEST PORT CLINICAL INDICATION PROVIDED:. "sob." COMPARISON: . 09/26/2015.FINDINGS:. The pericardial/cardiac silhouette is enlarg ed in the transversedimension. There is no pulmonary vascular congestion or interst itial edema.Linear density in the left lung base and faint densities in the right mi d tolower lung likely represent atelectasis. There is no lobar consolidation oreffusi on. There is no pneumothorax.IMPRESSION:. Bilateral lower lung atelectasis. No donna dence of consolidation oreffusion.Medications reviewed albuterol-ipratropium (DUO-NEB ) 2.5 MG-0.5 MG/3 ML 3 mL Nebulization Q6HWA RT LORazepam (ATIVAN) injection 0.5 mg 0.5 mg IntraVENous QHS valproate (DEPACON) 250 mg in 0.9% sodium chloride 50 mL IVP B 250 mgIntraVENous Q12H methylPREDNISolone (PF) (SOLU-MEDROL) injection 20 mg 20 m g IntraVENous Q12H 0.9% sodium chloride 1,000 mL with mvi, adult no.4 with vit K 10 mL, [id number] mg, folic acid 1 mg infusion IntraVENous Q24H dextrose 5 % - 0.45% NaCl infusion 50 mL/hr IntraVENous CONTINUOUS heparin (porcine) injection 5,000 Units 5,000 Units SubCUTAneous Q12H albuterol-ipratropium (DUO-NEB) 2.5 MG-0 .5 MG/3 ML 3 mL Nebulization Q4H PRN cinacalcet (SENSIPAR) tablet 60 mg 60 m g Oral DAILY ALPRAZolam (XANAX) tablet 0.25 mg 0.25 mg Oral DAILY budesonide (PULM ICORT) 500 mcg/2 ml nebulizer suspension 500 mcg NebulizationBID RT Assessment/Plan: Hospital Problems Date Reviewed: 11/27/2018 Codes Class Noted POA COPD (chronic obstructive pulmonary disease) (HCC) ICD-10-CM: J44.9ICD-9-CM: 496 11/08/2018 Unknown Acute respiratory distress ICD-10-CM: R06.03ICD-9-CM: 518.82 2018 Unknown Pneumonia ICD-10-CM: J18.9ICD-9-CM: 486 11/08/2018 Unknown CO PD exacerbation (HCC) ICD-10-CM: J44.1ICD-9-CM: 491.21 11/08/2018 Unknown Assessment:Acute Hypercapnia, Hypoxic respiratory failureRule out sepsis- Cult ures NGTDMetabolic acidosis Pneumonia- HCAP RLL Acute COPD exacerbationDysphagiaH/o large hiatal herniaGERDSeizureSevere intellectual disabilityAnxiety disorderL eukocytosis- resolvingChronic SchizophreniaPlan: Cont O2NC/Bipap per p ulm off steroidsnebsSwallow re evalCont iv zithro and rocephinF/u culturesdvt proph ylaxis with heparin subcutCont iv fluids w mvi, folic acid, thiamineD/w pt uncle (E NT physician) per report , who is request ngt insertion for Nutrition.Jeffrey Cheema DOAugust 2018Time: 5:07 PM Name Value Range Interpretation Code Description Data Harriett rce(s) Supporting Document(s ) ID Date Data Source [id number] 08/24/2019 01:57:26 PM EDT [facility] Progress NotePatient: Evelio Carlin Sex: male DOA: 11/07/2018Date of : 1950 Age: 68 y.o. :[id number]:Reyes Carlin is 68 y.o. male who was sent to the ED for hypoxia, with O2SAT of 84 % o n room air, respiratory distress, COPD exacerbation and Pneumonia.He has medica l h/o COPD, requiring intermittent O2 NC, large hiatal hernia,GERD, recurrent aspi ration pneumonia, dysphagia, parkinson disease, epilepsy,(focal),(partial) and Idiopathic, not intractable. Severe intellectualdisability, hyperparathyroid , unspecified, personal h/o pulmonary embolus,anxiety disorder, kyphosis and s chizophrenia.The pt was placed on BIPAP.CTA chest was neg for pulm embolism. Showing decreased size of the rt hemithoraxfrom chronic scarring and retraction with med iastinal shift left to rt.Additional area of consolidation is seen in the RLL an sugg ests superimposedpneumonia with subsegmental atelectasis. Low lung volumes are seen. Labs were remarkable for lactic acidosis as high as 4.1.The pt was admitted with ini tial encounter diag of Acute hypercapnia, hypoxicrespiratory failure, COPD Exacerb ation, Pneumonia RLL, atelectasis and Metabolicacidosis. Also, diag of dysphag ia, seizure, hyperparathyroid, unspecified andintellectual disability are pertinent to this visit.Pt was restless overnight, given iv ativan 0.5 mg with improvement. Pt failed the bedside swallow re eval and the staff has had unsuccessfulattempts at ng t insertion. Seen by gi rec surgical placement of the feeding tube.The pt is nonverbal and is unable to provide a history. He is breathing better. 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 Pupils are equalNeck: Supple, symmetrical, no stephanie nopathy, no carotid bruit and no JVD.Lungs: Clear to auscultation bilaterally. No Wheezing or Rhonchi. No rales.Chest wall: No tenderness or deformity. No Accessory mu scle use.Heart: Regular rate and rhythm, no murmur, or rub.Abdomen: Soft, non-t shanelle. Not distended. Bowel sounds normal. No massesExtremities: Extremities normal , atraumatic, No cyanosis. No edema. No clubbingSkin: Warm and dry. No rashe s or lesions. Not JaundicedLymph nodes: Cervical, supraclavicular normal.Psych: Not agitated.Neurologic: EOMs intact. No facial asymmetry. Non verbal, generalize d weakness,Alert and Awake.Intake and Output:Lab/Data Reviewed:Recent Days:Lab s:Recent Labs 11/14/1904WBC 10.4 11.0* 9.7HGB 15.2 1 5.8 15.1HCT 43.4 43.9 43.5PLT 233 251 242 Recent Labs 11/14/1904 0 NA 139 139 140K 4.2 4.2 4.0CL 104 103 103CO2 28 26 28GLU 108* 85 77BUN 15 14 16CREA 0.42* 0.46* 0.42*CA 9.2 9.1 9.1MG 1.9 1.9 1.9PHOS 2.9 3.1 2.9ALB 2.7* 2.9* 2.9*TBILI 0.8 0.7 0.6SGOT 17 25 33ALT 27 34 31 Cultures:Lab ResultsComponent Value D ate/Time Culture result: NO GROWTH 5 DAYS 11/07/2018 08:10 PM Culture result: NO GROWTH 5 DAYS 11/07/2018 08:00 PM Cta Chest W Or W Wo ContResult Date: 11/08/2018Examin ation: CTA Chest ? PE angiography History: Hypoxia; rule out pneumoniaversus pulmon connor embolism Priors: None Technique: Low-dose, multiplanar,helical CTA chest was performed with bolus IV injection from lung apices tobases. 3D-reformatted katja ges were obtained and reviewed on a dedicated viewingworkstation and directly supervis ed. Contrast: A total of 71 mL of Isovue-370was administered intravenously for this procedure. Findings: No evidence ofpulmonary embolism is seen. There is d ecreased size of the right hemithorax fromchronic scarring and retraction with mediastinal shift left to right.Additional area of consolidation is seen in the rig ht lower lobe and suggestssuperimposed pneumonia with subsegmental atelectasis. Subsegmental atelectasisis also noted in the left lung base, with pleural parench ymal scarring. Lowlung volumes are seen. No pneumothorax seen. Aorta normal in calib er withoutaneurysm or dissection. Mediastinum no adenopathy. Mediastinal shift is see n inthe left and right as a result of chronic changes in the right hemithorax. Heart shows no chamber enlargement or pericardial effusion. No acute fractures seen in the bony thorax, sternum, manubrium and rib cage. Multiple compressiondefor mities are seen in the mid and lower thoracic spine, with superimposedspondyloarthropa thy. Cannot exclude acute fracture.Impression: No evidence of pul monary embolism Right lower lobe pneumoniasuggested. Incidental scarring and retraction in the right hemithorax fromremote/chronic inflammatory disease and/or trauma. Bibasilar subsegmentalatelectasis. Report Electron ically Signed By: Pawel Zafar M.D. -11/08/2018 12:40 AMelevation of the left leaf of the diaphragm. Heart size is difficult toevaluate.Result Date: 019XR CHEST PORT CLINICAL INDICATION PROVIDED:. "sob." COMPARISON:. 09/26/2015 .FINDINGS:. The pericardial/cardiac silhouette is enlarged in the transverse dimension. There is no pulmonary vascular congestion or interstitial edema.Linear density in the left lung base and faint densities in the right mid tolower lung likely represent atelectasis. There is no lobar consolidation oreffusion. There is no pneumothorax.IMPRESSION:. Bilateral lower lung atelectasis. No evidence of consoli dation oreffusion.Medications reviewedAssessment/Plan:Hospital Problem s Date Reviewed: 11/27/2018 Codes Class Noted POA COPD (chronic obstructive pulm onary disease) (HCC) ICD-10-CM: J44.9ICD-9-CM: 496 11/08/2018 Unknown Ac manzanita respiratory distress ICD-10-CM: R06.03ICD-9-CM: 518.82 11/08/2018 Unknow n Pneumonia ICD-10-CM: J18.9ICD-9-CM: 486 11/08/2018 Unknown COPD exacerbation (HCC ) ICD-10-CM: J44.1ICD-9-CM: 491.21 11/08/2018 UnknownAssessment:Acute Hypercapnia, Hyp oxic respiratory failureRule out sepsisMetabolic acidosis Pneumonia- HCAP RLL Acute COPD exacerbationDysphagiaH/o large hiatal herniaGERDSeizureSevere int ellectual disabilityAnxiety disorderLeukocytosis- resolvingChronic S chizophreniaPlan: Cont O2NC/Bipap per pulm off steroidsnebsSwallow re evalCont iv z ithro and rocephinF/u culturesdvt prophylaxis with heparin subcutCont iv fluids w mvi, folic acid, thiamineD/w pt uncle (ENT physician) per report , who is request n gt insertion for Nutrition.Mitts restraints, prn Renae Gonzalez 2018Tim e: 5:06 PM Name Value Range Interpretation Code Description Data Harriett rce(s) Supporting Document(s ) ID Date Data Source [id number] 08/24/2019 01:28:23 PM EDT [facility] Progress NotePatient: Evelio Carlin Sex: male DOA: 11/07/2018Date of : 1950 Age: 68 y.o. :[id number]:Reyes Carlin is 68 y.o. male who was sent to the ED for hypoxia, with O2SAT of 84 % o n room air, respiratory distress, COPD exacerbation and Pneumonia.He has medica l h/o COPD, requiring intermittent O2 NC, large hiatal hernia,GERD, recurrent aspi ration pneumonia, dysphagia, parkinson disease, epilepsy,(focal),(partial) and Idiopathic, not intractable. Severe intellectualdisability, hyperparathyroid , unspecified, personal h/o pulmonary embolus,anxiety disorder, kyphosis and s chizophrenia.The pt was placed on BIPAP.CTA chest was neg for pulm embolism. Showing decreased size of the rt hemithoraxfrom chronic scarring and retraction with med iastinal shift left to rt.Additional area of consolidation is seen in the RLL an sugg ests superimposedpneumonia with subsegmental atelectasis. Low lung volumes are seen. Labs were remarkable for lactic acidosis as high as 4.1.The pt was [facility] with [facility] encounter diag of Acute hypercapnia, hypoxicrespiratory failure, COPD Exacerb ation, Pneumonia RLL, atelectasis and Metabolicacidosis. Also, diag of dysphag ia, seizure, hyperparathyroid, unspecified andintellectual disability are pertinent to this visit.Pt was restless overnight, given iv ativan 0.5 mg with improvement. Pt failed the bedside swallow re eval and the staff has had unsuccessfulattempts at ng t insertion. Seen by gi rec surgical placement of the feeding tube.The pt is nonverbal and is unable to provide a history. He is breathing better.Evaluat ed by surgeon for s surgical placed feeding tube.Past Medical History:Diagnosis Date Chronic obstructive pulmonary disease (HCC) GERD (gastroesophageal reflux disease) Hyperparathyroidism (HCC) Mental retardation Parkinsonism due to drug (H CC) Pneumonia Psychiatric disorder Pulmonary emboli (HCC) Schizophrenia (H CC)Review of Systems: [x] Unable to obtain ROS due to patient factors.Objective:Vis it VitalsBP 134/88 (BP 1 Location: Left arm, BP Patient Position: At rest)Pulse 100Te mp 98.1 F (36.7 C)Resp 20Ht 5' 2" (1.575 m)Wt 59.1 kg (130 lb 6.4 oz)SpO2 (!) 88% BMI 23.85 kg/m PHYSICAL EXAM:General: Alert, cooperative, no distress, appears stated age.Head: Normocephalic, without obvious abnormality, atraumatic.Eyes: Conjunctivae clear, anicteric sclerae. Pupils are equalNeck: Supple, symmetric al, no adenopathy, no carotid bruit and no JVD.Back: Symmetric, No CVA tenderne ss., + KyphosisLungs: Clear to auscultation bilaterally. No Wheezing or Rhonchi. No rales.Chest wall: No Accessory muscle use.Heart: Regular rate and rhythm, n o murmur, or rub.Abdomen: Soft, non-tender. Not distended. Bowel sounds normal. No massesExtremities: Extremities normal, atraumatic, No cyanosis. No edema. No c lubbingSkin: Warm and dry. No rashes or lesions. Not JaundicedLymph nodes: Cerv ical, supraclavicular normal.Psych: Not agitated.Neurologic: EOMs intact. No fac ial asymmetry. Non verbal, generalized weakness,Alert and Awakr.Intake and Outp ut:Lab/Data Reviewed:Recent Days:CMP:Lab ResultsComponent Value Date/Time NA 139 11/14/2018 05:33 AM K 4.2 11/14/2018 05:33 AM CL 103 11/14/2018 05:33 AM CO2 26 0 11/14/2018 05:33 AM AGAP 14 11/14/2018 05:33 AM GLU 85 11/14/2018 05:33 AM BUN 14 0 11/14/2018 05:33 AM CREA 0.46 (L) 11/14/2018 05:33 AM GFRAA >60 11/14/2018 05:33 AM GFRNA >60 11/14/2018 05:33 AM CA 9.1 11/14/2018 05:33 AM MG 1.9 11/14/2018 0 5:33 AM PHOS 3.1 11/14/2018 05:33 AM ALB 2.9 (L) 11/14/2018 05:33 AM TP 6.1 (L) 11/14/2018 05:33 AM GLOB 3.2 11/14/2018 05:33 AM AGRAT 0.9 11/14/2018 05:33 AM SGOT 25 11/14/2018 05:33 AM ALT 34 11/14/2018 05:33 AM CBC:Lab ResultsCompo nent Value Date/Time WBC 11.0 (H) 11/14/2018 05:33 AM HGB 15.8 11/14/2018 05:33 AM HCT 43.9 11/14/2018 05:33 AM PLT 251 11/14/2018 05:33 AM Cta Chest W Or W Wo ContResult Date: 11/08/2018Examination: CTA Chest ? PE angiography History: Hypoxia; rule out pneumoniaversus pulmonary embolism Priors: None Technique: Low-dose, mult iplanar,helical CTA chest was performed with bolus IV injection from lung apices tob ases. 3D-reformatted images were obtained and reviewed on a dedicated viewingworks tation and directly supervised. Contrast: A total of 71 mL of Isovue-370was administ ered intravenously for this procedure. Findings: No evidence ofpulmonary emboli sm is seen. There is decreased size of the right hemithorax fromchronic scarring an d retraction with mediastinal shift left to right.Additional area of consolidation i s seen in the right lower lobe and suggestssuperimposed pneumonia with subs egmental atelectasis. Subsegmental atelectasisis also noted in the left jorge g base, with pleural parenchymal scarring. Lowlung volumes are seen. No pneumothora x seen. Aorta normal in caliber withoutaneurysm or dissection. Mediastin um no adenopathy. Mediastinal shift is seen inthe left and right as a result of chr onic changes in the right hemithorax.Heart shows no chamber enlargement or pericard ial effusion. No acute fracturesseen in the bony thorax, sternum, manubrium and rib cage. Multiple compressiondeformities are seen in the mid and lower thoracic spine , with superimposedspondyloarthropathy. Cannot exclude acute fracture.Impression : No evidence of pulmonary embolism Right lower lobe pneumoniasuggested. Incidenta l scarring and retraction in the right hemithorax fromremote/chronic inflammato ry disease and/or trauma. Bibasilar subsegmentalatelectasis. Report Electron ically Signed By: Pawel Zafar M.D. -11/08/2018 12:40 AMXr Chest PortResult D ate: 11/07/2018XR CHEST PORT CLINICAL INDICATION PROVIDED:. "sob." COMPARISON: . 09/26/2015.FINDINGS:. The pericardial/cardiac silhouette is enlarg ed in the transversedimension. There is no pulmonary vascular congestion or interst itial edema.Linear density in the left lung base and faint densities in the right mi d tolower lung likely represent atelectasis. There is no lobar consolidation oreffusi on. There is no pneumothorax.IMPRESSION:. Bilateral lower lung atelectasis. No donna dence of consolidation oreffusion.Medications reviewed albuterol-ipratropium (DUO-NEB ) 2.5 MG-0.5 MG/3 ML 3 mL Nebulization Q6HWA RT LORazepam (ATIVAN) injection 0.5 mg 0.5 mg IntraVENous QHS valproate (DEPACON) 250 mg in 0.9% sodium chloride 50 mL IVP B 250 mgIntraVENous Q12H methylPREDNISolone (PF) (SOLU-MEDROL) injection 20 mg 20 m g IntraVENous Q12H 0.9% sodium chloride 1,000 mL with mvi, adult no.4 with vit K 10 mL, mg, folic acid 1 mg infusion IntraVENous Q24H dextrose 5 % - 0.45% NaCl infusion 50 mL/hr IntraVENous CONTINUOUS heparin (porcine) injection 5,000 Units 5,000 Units SubCUTAneous Q12H albuterol-ipratropium (DUO-NEB) 2.5 MG-0 .5 MG/3 ML 3 mL Nebulization Q4H PRN cinacalcet (SENSIPAR) tablet 60 mg 60 m g Oral DAILY ALPRAZolam (XANAX) tablet 0.25 mg 0.25 mg Oral DAILY cefTRIAXone (FEDE EPHIN) 1 g in 0.9% sodium chloride (MBP/ADV) 50 mL MBP 1 gIntraVENous Q24H azithrom ycin (ZITHROMAX) 500 mg in 0.9% sodium chloride 250 mL IVPB 500 mgIntraVENous Q24H budesonide (PULMICORT) 500 mcg/2 ml nebulizer suspension 500 mcg Nebulizati onBID RTAssessment/Plan:Hospital Problems Date Reviewed: 11/27/2018 Codes Cla ss Noted POA COPD (chronic obstructive pulmonary disease) (HCC) ICD-10-CM: J44. 9ICD-9-CM: 496 11/08/2018 Unknown Acute respiratory distress ICD-10-CM: R06.03IC D-9-CM: 518.82 11/08/2018 Unknown Pneumonia ICD-10-CM: J18.9ICD-9-CM: 486 11/08/2018 Unknown COPD exacerbation (HCC) ICD-10-CM: J44.1ICD-9-CM: 491.21 11/08/2018 Unknown Assessment:Acute Hypercapnia, Hypoxic respiratory failureRule out sepsisMetabo lic acidosis Pneumonia- HCAP RLL Acute COPD exacerbationDysphagiaH/o large hiatal he rniaGERDSeizureSevere intellectual disabilityAnxiety disorderLeukocytosis- resolvingChronic SchizophreniaPlan: Cont O2NC/Bipap per pulm steroids DC today pe r pulmnebsSurgery f/uCont iv zithro and rocephinF/u culturesdvt prophylaxis with heparin subcutCont iv fluids w mvi, folic acid, thiamineD/w pt uncle (ENT physicia n) per report , who is request ngt insertion for Nutrition.Mitts restraints, prn -S Renae Alberts 2018Time: 5:06 PM Name Value Range Interpretation Code Description Data Harriett rce(s) Supporting Document(s ) ID Date Data Source [id number] 08/24/2019 01:02:08 PM EDT [facility] Progress NotePatient: Evelio Carlin Sex: male DOA: 11/07/2018Date of : 1950 Age: 68 y.o. :[id number]:Reyes Carlin is 68 y.o. male who was sent to the ED for hypoxia, with O2SAT of 84 % o n room air, respiratory distress, COPD exacerbation and Pneumonia.He has medica l h/o COPD, requiring intermittent O2 NC, large hiatal hernia,GERD, recurrent aspi ration pneumonia, dysphagia, parkinson disease, epilepsy,(focal),(partial) and Idiopathic, not intractable. Severe intellectualdisability, hyperparathyroid , unspecified, personal h/o pulmonary embolus,anxiety disorder, kyphosis and s chizophrenia.The pt was placed on BIPAP.CTA chest was neg for pulm embolism. Showing decreased size of the rt hemithoraxfrom chronic scarring and retraction with med iastinal shift left to rt.Additional area of consolidation is seen in the RLL an sugg ests superimposedpneumonia with subsegmental atelectasis. Low lung volumes are seen. Labs were remarkable for lactic acidosis as high as 4.1.The pt was admitted with ini tial encounter diag of Acute hypercapnia, hypoxicrespiratory failure, COPD Exacerb ation, Pneumonia RLL, atelectasis and Metabolicacidosis. Also, diag of dysphag ia, seizure, hyperparathyroid, unspecified andintellectual disability are pertinent to this visit.Pt was restless overnight, given iv ativan 0.5 mg with improvement. Pt failed the bedside swallow re eval and the staff has had unsuccessfulattempts at ng t insertion. Seen by gi rec surgical placement of the feeding tube.The pt is nonverbal and is unable to provide a history. 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 Pupils are equalNeck: Supple, symmetrical, no adenopathy, no carotid bruit and no JVD.Lungs: Clear to auscultation bilaterally. No Wheezing or Rhonchi. No rales.Chest wall: No Accessory muscle use.Heart: Regular rate and rhythm, n o murmur, or rubAbdomen: Soft, non-tender. Not distended. Bowel sounds normal. No massesExtremities: Extremities normal, atraumatic, No cyanosis. No edema. No c lubbingSkin: No rashes or lesions. Not JaundicedLymph nodes: Cervical, supracla vicular normal.Psych: Not agitated.Neurologic: EOMs intact. No fac ial asymmetry. No aphasia or slurred speech.Generalized weakness, Alert and A wake.Intake and Output:Lab/Data Reviewed:Recent Days:Recent Labs 11/12/1906WBC 9.7 11.7*HGB 15.1 14.9HCT 43.5 43.4PLT 242 238 Recent Labs 11/12/1906NA 140 142 141K 4.0 3.8 4.0CL 103 104 106CO 2 28 28 28GLU 77 79 100BUN 16 15 15CREA 0.42* 0.49* 0.60*CA 9.1 9.0 9.0MG 1.9 1.8 --P HOS 2.9 2.9 --ALB 2.9* 3.2* 3.0*TBILI 0.6 0.6 0.5SGOT 33 43* 29ALT 31 30 23 Cultur es:No results found for: SDESLab ResultsComponent Value Date/Time Cultur e result: NO GROWTH 5 DAYS 11/07/2018 08:10 PM Culture result: NO GROWTH 5 DAYS 08:00 PM Cta Chest W Or W Wo ContResult Date: 11/08/2018Examination: CTA Chest ? PE angiography History: Hypoxia; rule out pneumoniaversus pulmonary embol ism Priors: None Technique: Low-dose, multiplanar,helical CTA chest was perfor med with bolus IV injection from lung apices tobases. 3D-reformatted images were obt ained and reviewed on a dedicated viewingworkstation and directly supervis ed. Contrast: A total of 71 mL of Isovue-370was administered intravenously for this procedure. Findings: No evidence ofpulmonary embolism is seen. There is d ecreased size of the right hemithorax fromchronic scarring and retraction with mediastinal shift left to right.Additional area of consolidation is seen in the rig ht lower lobe and suggestssuperimposed pneumonia with subsegmental atelectasis. Subsegmental atelectasisis also noted in the left lung base, with pleural parench ymal scarring. Lowlung volumes are seen. No pneumothorax seen. Aorta normal in calib er withoutaneurysm or dissection. Mediastinum no adenopathy. Mediastinal shift is see n inthe left and right as a result of chronic changes in the right hemithorax. Heart shows no chamber enlargement or pericardial effusion. No acute fractures seen in the bony thorax, sternum, manubrium and rib cage. Multiple compressiondefor mities are seen in the mid and lower thoracic spine, with superimposedspondyloarthropa thy. Cannot exclude acute fracture.Impression: No evidence of pul monary embolism Right lower lobe pneumoniasuggested. Incidental scarring and retraction in the right hemithorax fromremote/chronic inflammatory disease and/or trauma. Bibasilar subsegmentalatelectasis. Report Electron ically Signed By: Pawel Zafar M.D. -11/08/2018 12:40 AMt base which may repr esent infiltrateXr Chest PortResult Date: 11/07/2018XR CHEST PORT CLINICAL INDICATI ON PROVIDED:. "sob." COMPARISON:. 09/26/2015.FINDINGS:. The pericardial/car diac silhouette is enlarged in the transversedimension. There is no pulmona ry vascular congestion or interstitial edema.Linear density in the left lung ba se and faint densities in the right mid tolower lung likely represent atelectasi s. There is no lobar consolidation oreffusion. There is no pneumothorax.IMP RESSION:. Bilateral lower lung atelectasis. No evidence of consolidation oreffusion. Medications reviewed albuterol-ipratropium (DUO-NEB) 2.5 MG-0.5 MG/3 ML 3 mL Nebul ization Q6H RT methylPREDNISolone (PF) (SOLU-MEDROL) injection 20 mg 20 mg Int raVENous Q12H LORazepam (ATIVAN) injection 0.5 mg 0.5 mg IntraVENous Q12H PRN 0.9 % sodium chloride 1,000 mL with mvi, adult no.4 with vit K 10 mL, [id number] mg, f olic acid 1 mg infusion IntraVENous Q24H dextrose 5 % - 0.45% NaCl infusion 50 m L/hr IntraVENous CONTINUOUS heparin (porcine) injection 5,000 Units 5,000 U nits SubCUTAneous Q12H albuterol-ipratropium (DUO-NEB) 2.5 MG-0.5 MG/3 ML 3 mL Nebul ization Q4H PRN cinacalcet (SENSIPAR) tablet 60 mg 60 mg Oral DAILY lamoTRIgine (La MICtal) tablet 50 mg 50 mg Oral BID ALPRAZolam (XANAX) tablet 0.25 mg 0.25 mg Oral DAILY cefTRIAXone (ROCEPHIN) 1 g in 0.9% sodium chloride (MBP/ADV) 50 mL MBP 1 gIntraVENous Q24H azithromycin (ZITHROMAX) 500 mg in 0.9% sodium chlori de 250 mL IVPB 500 mgIntraVENous Q24H budesonide (PULMICORT) 500 mcg/2 ml nebu lizer suspension 500 mcg NebulizationBID RT Assessment/Plan:Hospital Problems Never Reviewed Codes Class Noted POA COPD (chronic obstructive pulmonary disease) (HCC) ICD-10-CM: J44.9ICD-9-CM: 496 11/08/2018 Unknown Acute respiratory dist ress ICD-10-CM: R06.03ICD-9-CM: 518.82 11/08/2018 Unknown Pneumonia ICD-10-CM: J 18.9ICD-9-CM: 486 11/08/2018 Unknown COPD exacerbation (HCC) ICD-10-CM: J44.1ICD-9 -CM: 491.21 11/08/2018 UnknownAssessment:Acute Hypercapnia, Hyp oxic respiratory failureRule out sepsisMetabolic acidosis Pneumonia- HCAP RLL Acute COPD exacerbationDysphagiaH/o large hiatal herniaGERDSeizureSevere int ellectual disabilityAnxiety disorderLeukocytosis- resolvingChronic S chizophreniaPlan: Cont O2NC/Bipap per pulm steroids DC today per pulmnebsSwallow re evalCont iv zithro and rocephinF/u culturesdvt prophylaxis with heparin sub cutCont iv fluids w mvi, folic acid, thiamineD/w pt uncle (ENT physician) per report , who is request ngt insertion forNutrition.Mitts restraints, prnShirle y Renae Hills 2018Time: 11:52 PM Name Value Range Interpretation Code Description Data Harriett rce(s) Supporting Document(s ) ID Date Data Source [id number] 07/23/2019 08:30:00 AM EDT [facility] Name Value Range Interpretation Description Data Sup porting Code Source(s) Document(s ) SARS [facility] CORONAVIRUS 2 RNA This lab was ordered by [facility] and reported by [facility]. ID Date Data Source [id number] 07/06/2019 02:37:00 PM EDT [facility] Name Value Range Interpretation Description Data Sup porting Code Source(s) Document(s ) SARS [facility] CORONAVIRUS 2 RNA This lab was ordered by [facility] and reported by [facility]. ID Date Data Source [id number] 05/21/2019 03:45:05 PM EST [facility] Patient evaluated with NANCY Oglesby Name Value Range Interpretation Code Description Data Harriett rce(s) Supporting Document(s ) ID Date Data Source [id number] 05/09/2019 03:00:53 PM EST [facility] Progress NoteMID-[facility] ,[facility].Krystian Monae MD., F.C.C.P.Stella Hamilton MD., F.C.C.P. [address] [place] [id number] [place] [address] [id number] Patient: Telly grimm Sex: male DOA: 04/19/2019Date of : 1950 Age: 68 y.o. LOS: LOS: 18 daysSubjective:Mr. Carlin is a 68 y.o . year old male who is being seen for ACUTERESPIRATORY FAILURE .HE LOOKS BET TER , MORE AWAKE TODAY . PATIENT IS BEING DISCHARGED TO [facility] TODAY PER DR BUSTOSObjective:Vital Signs:Patient Vitals for the past 24 hrs: BP Temp Pulse Resp SpO2 Assykx11/23/20 1131 146/86 98.2 F (36.8 C) 70 16 97 % -05/07/19 1108 - - 99 16 98 % -05/07/19 0744 - - - - 97 % -05/07/19 0729 145/75 98.2 F (36.8 C) 75 15 97 % -05/07/19 0545 - - 77 13 98 % -05/07/19 0356 - - - - - 52.2 kg (115 lb)05/07/19 0333 126/85 98.9 F (37.2 C) 73 14 99 % -05/07/19 0158 - - 99 18 98 % -05/06/19 2329 - 98. 8 F (37.1 C) 96 19 98 % -05/06/19 1950 - - 92 17 98 % -05/06/19 1916 (!) 167/95 98. 3 F (36.8 C) 86 16 98 % -05/06/19 1701 - - 87 21 97 % -Pulse OX:SpO2 Readings from Last 6 Encounters:05/07/19 97%04/16/19 100%04/06/19 99%03/17/19 92%02/19/19 96% 02/18/19 92%@LASTSAO2(6)@Ventilator Settings:Ventilator Mode: PRVCRespirator y RateBack-Up Rate: 12Insp Time (sec): 1 secI:E Ratio: 1:5Ventilator VolumesVt Se t (ml): 400 mlVt Exhaled (Machine Breath) (ml): 409 mlVt Spont (ml): 375 mlVe Obse rved (l/min): 5.8 l/minVentilator PressuresPressure Support (cm H2O): 10 c m H2OPIP Observed (cm H2O): 20 cm H2OMAP (cm H2O): 8PEEP/VENT (cm H2O): 5 cm N23Rcxe PEEP Observed (cm H2O): 2.3 cm W6SWvqu Rate Tidal Volume Pressure FiO2 PEEPPRVC 40 0 ml 10 cm H2O 40 % 5 cm H36Uaai airway pressure: 20 cm C3HZnmrxz ventilation: 5 .8 l/minARDS network Guidelines: Lung protective strategy and Pl pressure goal s 20 CMSess than or equal to 30Physical Exam:MORE AWAKE , COMFORTABLE ON VENTIL ATOR General: Alert, cooperative, no distress, appears stated age. Head: Normocephalic, without obvious abnormality, atraumatic. Eyes : Conjunctivae/corneas clear. PERRL, EOMs intact. Nose: Nares normal. No drainage or sinus tenderness Throat: Lips, mucosa, and tongue jazzmine l Neck: Supple, symmetrical, trachea midline, no adenopathy,thyroid: no enlargement/tenderness/nodules, no carotid bruit and no JVD. Elham ngs: AIR EXCHANGE IS FURTHER BETTER , WHEEZING ARE LESS ,RALES ARE LESS to a uscultation bilaterally. Chest Wall: No tenderness or deformity. Heart : Regular rate and rhythm, S1, S2 normal, no murmur, click,rub or gallop. Abdom en: Soft, non-tender. Bowel sounds normal. No masses, No organomegaly. Extremitie s: Extremities normal, atraumatic, no cyanosis or edema. Pulses: 4+ bilaterally. Skin: Skin color, texture, turgor normal. No rashes or les ions. Neurologic: CNII-XII intact. No focal motor or sensory deficit.Intake an d Output:Last three shifts: 05/05 1901 - 05/07 0700In: 1680 [I.V.:50]Out: 350Lab Results:Recent Results (from the past 24 hour(s))MAGNESIUM Collection Time: 05/07 4:50 AMResult Value Ref Range Magnesium 2.9 (H) 1.6 - 2.6 mg/dLCBC WITH AUTOMATE D DIFF Collection Time: 05/07/19 4:50 AMResult Value Ref Range WBC 10.8 (H) 4. 8 - 10.6 K/uL RBC 3.19 (L) 4.70 - 6.00 M/uL HGB 9.7 (L) 14.0 - 18.0 g/dL HCT 32.1 (L ) 42.0 - 52.0 % MCV 100.6 (H) 81.0 - 94.0 FL MCH 30.4 27.0 - 35.0 PG MCHC 30.2 (L) 30 .7 - 37.3 g/dL RDW 17.9 (H) 11.5 - 14.0 % PLATELET 297 130 - 400 K/uL MPV 10.0 9.2 - 11.8 FL NRBC 0.0 0 PER 100 WBC ABSOLUTE NRBC 0.00 0.0 - 0.01 K/uL NEUTROPHILS 74 (H) 48.0 - 72.0 % LYMPHOCYTES 17 (L) 18.0 - 40.0 % MONOCYTES 7 2.0 - 12.0 % EOSINOPH ILS 1 0.0 - 7.0 % BASOPHILS 0 0.0 - 3.0 % IMMATURE GRANULOCYTES 1 (H) 0 - 0.5 % AB S. NEUTROPHILS 8.0 (H) 2.3 - 7.6 K/UL ABS. LYMPHOCYTES 1.8 0.9 - 4.2 K/UL ABS. MONO CYTES 0.8 0.1 - 1.7 K/UL ABS. EOSINOPHILS 0.1 0.0 - 1.0 K/UL ABS. BASOPHILS 0.0 0.0 - 0.4 K/UL ABS. IMM. GRANS. 0.1 0.0 - 0.17 K/UL DF AUTOMATEDMETABOLIC PANEL, COMPREHENSI VE Collection Time: 05/07/19 4:50 AMResult Value Ref Range Sodium 150 (H) 136 - 145 mmol/L Potassium 3.9 3.5 - 5.1 mmol/L Chloride 117 (H) 98 - 107 mmol/L CO2 32 21 - 32 mmol/L Anion gap 6 (L) 10 - 20 mmol/L Glucose 121 (H) 74 - 106 mg/dL BUN 45 (H ) 7 - 18 mg/dL Creatinine 2.13 (H) 0.70 - 1.30 mg/dL GFR est AA 40 (L) >60 ml/min/ 1.73m2 GFR est non-AA 33 (L) >60 ml/min/1.73m2 Calcium 9.7 8.5 - 10.1 mg/ dL Bilirubin, total 0.3 0.2 - 1.0 mg/dL ALT (SGPT) 14 13 - 61 U/L AST (SGOT) 11 (L) 15 - 37 U/L Alk. phosphatase 86 45 - 117 U/L Protein, total 6.5 6.4 - 8.2 g/dL Albumi n 2.2 (L) 3.5 - 4.7 g/dL Globulin 4.3 1.7 - 4.7 g/dL A-G Ratio 0.5 (L) 0.7 - 2.8PHOS PHORUS Collection Time: 05/07/19 4:50 AMResult Value Ref Range Phosphorus 2.0 (L) 2.5 - 4.9 mg/dLABG:Recent Labs 05/05/201040PH 7.53*PCO2 41PO2 147*HCO3 34*FIO2 40.0Recent Glucose Results:Lab ResultsComponent Value Date/Time GLU 121 (H) 05/07/2019 04:50 AM@LABAPCYTOINTERPRETATION@CULTURESAll M icro Results Procedure Component Value Units Date/Time CULTURE, BLOOD [[id number]] Col lected: 04/25/19 1210 Order Status: Completed Specimen: Blood Updated: 1352 Special Requests: NO SPECIAL REQUESTS Culture result: NO GROWTH 5 DA YS CULTURE, BLOOD [[id number]] Collected: 04/25/19 1205 Order Status: Completed S pecimen: Blood Updated: 04/30/19 1352 Special Requests: NO SPECIAL REQUESTS C ulture result: NO GROWTH 5 DAYS CULTURE, RESPIRATORY/SPUTUM/BRONCH W GRAM STAIN [ [id number]] (Abnormal)(Susceptibility) Collected: 04/26/19 1700 Order Status: Completed Specimen: Sputum from Tracheal Aspirate Updated:04/29/19 1051 Special Requests: NO SPECIAL REQUESTS GRAM STAIN 10-25 WBC/lpf <10 EPI/lpf FEW GRAM P OSITIVE RODS Culture result: MODERATE PSEUDOMONAS AERUGINOSA C. DIFFICILE (DNA ) [[id number]] Collected: 04/27/19 0915 Order Status: Completed Specimen: Stool Upda mikel: 04/27/19 1246 C. difficile (DNA) NEGATIVE Comment: This specimen is nega tive for toxigenic C difficile by DNAamplification. Repeat testing is not recommended for confirmation, samplesreceived within 7 days of this ne gative result will be rejected. C. DIFFICILE (DNA) [[id number]] (Abnormal) Collected: 04/25/19 1715 Order Status: Completed Specimen: Stool Updated: 04/26/19 1551 C. difficile (DNA) TEST RESULT IS INCONCLUSIVE. PLEASE SUBMIT A NEW SPECIM EN FOR ANALYSIS. CULTURE, URINE [[id number]] Collected: 04/25/19 1147 Order Status: Completed Specimen: Urine from Clean catch Updated: Special Requests : NO SPECIAL REQUESTS Culture result: NO GROWTH 1 DAY C. DIFFICILE (DNA) [[id number]] Collected: 04/26/19 0930 Order Status: Canceled Specimen: Stool CULTURE, BLOOD [[id number]] Collected: 04/20/19 1440 Order Status: Completed Specimen: Blood Upda mikel: 04/26/19 0818 Special Requests: NO SPECIAL REQUESTS Culture result: NO HAIDER WTH 6 DAYS CULTURE, BLOOD [[id number]] Collected: 04/20/19 1447 Order Status: Completed Specimen: Blood Updated: 04/26/19 08 Special Requests: NO SPEC IAL REQUESTS Culture result: NO GROWTH 6 DAYS CULTURE, BLOOD [[id number]] (Abnorm al) Collected: 04/19/19 1005 Order Status: Completed Specimen: Blood Updated: 12/02 0731 Special Requests: NO SPECIAL REQUESTS GRAM STAIN GRAM POSITIVE COCC I IN [employer]USTERS ANAEROBIC BOTTLE CALLED TO AND READ BACK BY ROB LEDEZMA,RN, ED, 0999 ON 04/20/19 SCOTT Culture result: STAPHYLOCOCCUS EPIDERMIDIS : Refer to p revious culture(s) for susceptibilityresults CULTURE, BLOOD [[id number]] (Abnormal) (Susceptibility) Collected: Order Status: Completed Specimen: Bloo d Updated: 04/22/19 0729 Special Requests: NO SPECIAL REQUESTS GRAM STAIN GRAM PO SITIVE COCCI IN CLUSTERS ANAEROBIC BOTTLE CALLED TO AND READ BACK BY ROB KNOX, RN, ED, AT 0953 ON 04/20/19 TORISMIRAGLIA Culture result: STAPHYLO COCCUS EPIDERMIDISImages:@[email or web address]@Xr Chest Sngl VResult Date: 05/04/2019Histor y: Respiratory difficulty. FINDINGS: A frontal portable view of the chestis com pared to the prior study of the previous date. The tracheostomy tube andEKG leads are unchanged. The cardiac silhouette is normal in size. Evaluation ofthe lungs a nd mediastinal structures reveals continued minimal blunting of theleft costophrenic angle. There remains some density in the medial right lungbase. Mediastinal and h ilar structures are unremarkable. When differences inprojection and technique a re taken into account these findings may be similar.IMPRESSION: Findings similar to that seen previously.Xr Chest Sngl VResult Date: 05/03/2019History: Pneumonia. FINDI NGS: A frontal portable view of the chest is comparedto the prior study of the previo us date. The tracheostomy tube and EKG leads areagain seen. The cardiac silhouette is normal in size. Evaluation of the lungsand mediastinal structures is limited due to rotation. There remains opacity inthe medial right lung base as well as a right pleur al effusion. The left lung isunchanged. Mediastinal and hilar structures are poo rly evaluated.IMPRESSION: No change compared to the prior study.Xr Chest Sngl VResult Date: 05/02/2019Portable chest x-ray. PRIOR EXAM: X-ray 05/01/2019 HISTORY: Pneumonia FINDINGS:The heart is normal in size. The mediastinum and pulmonary vessels areunr emarkable. There is a left lower lobe infiltrate. Tracheostomy tube isgrossly unremarkable. There is a small right pleural effusion.. The bonystructures are intact .IMPRESSION: Left lower lobe infiltrate and small right pleural effusionunchanged si nce the prior exam. Study is limited due to patient positioning.Xr Chest Sngl VResul t Date: 05/01/2019AP portable film of the chest clinical indication pneumonia Stud y is compared toprevious examination of April 30, 2019. Again noted is an exte nsive left midlobe and lower lung infiltrate as well as a left pleural effusion. Also noted juancarlos right perihilar infiltrate.IMPRESSION: Bilateral infiltr ates and left pleural effusion ,Little change fromprior studyXr Chest Sngl VResult Pan e: 04/30/2019AP portable film of the chest clinical indication pleural effusion. St benja iscompared to previous examination April 29, 2019. Study demonstrates a l argeleft pleural effusion and again infiltrate in the left perihilar and inf rahilarregion. Smaller right pleural effusion is present. Prominence is noted in theri ght hilar region this may represent infiltrate or mass.IMPRESSION: 1. Bilate ral pleural effusions left greater than right. 2. Littlechange in extensive left hilar and infrahilar infiltrate. 3. Marked prominenceto right hilar region differen tial given aboveXr Chest Sngl VResult Date: 04/29/2019XR CHEST SNGL V CLINICAL INDICA TION PROVIDED:. "pneumonia / c h f / pl ,effusion." TECHNIQUE.: 1 views, chest. COMPARISON:. 04/28/2019. FINDINGS:. Thepatient has been extubated in the interval. The pericardial/cardiac silhouetteremains enlarged in the transverse dimension. Th ere is mild pulmonary vascularcongestion, not appreciably changed in the interval. The re is a small leftpleural effusion, similar in size to the previous study, with ángela cent densityin the left lower lung, which may represent atelectasis. There is nopneumo thorax. There is an abnormal right heart contour which may representatelectasis i n the right middle lobe. Follow-up radiographs are recommended.IMPRESSION:. Interval extubation. Mild congestive failure with small lefteffusion, not appreciably changed in the interval. Abnormal right pericardialcontour may represent atelect asis in the right middle lobe. Follow-upradiographs are recommended.Xr Chest Sngl VResult Date: 04/28/2019AP portable film of the chest clinical indication pn eumonia Study is compared toprevious examination of April 25, 2019. Again n oted is endotracheal tube insitu, the tip is above the tian. Extensive bibasal hazi ness is notedinfiltrate versus congestive change. Also noted is marked prominence topulmonary vasculature. Heart size is difficult to evaluate. There may be smal lbilateral pleural effusions.IMPRESSION: 1. Endotracheal tube in satisfactory positi on. 2. Extensive bibasalhaziness. 3. Prominence to pulmonary vascular marking s. 4. Possible bilateralsmall pleural effusionsXr Chest Sngl VResult Date: 04/15CHEST one view HISTORY: Pneumonia. COPD. COMPARISON: 04/23/2019. There is a p oorinspiratory effort which compromises this interpretation. The patient's chinalso o bscures the right upper lobe. A repeat study is suggested. There has beenno change o f small bilateral pleural effusions.There is no gross evidence ofcongestion, infiltra tasha, or a left pneumothorax.IMPRESSION: No significant change. Limited study. Poor inspiratory effort.Xr Abd (kub)Result Date: 04/28/2019Abdomen clinical indication odalis luate J-tube position. Study demonstrates aJ-tube projected over the upper abdomen . Without contrast material one cannot becertain exactly where the tube is. The re appears to be a mild ileus pattern.IMPRESSION: J-tube projected ove r upper abdomenXr Gastrograffin Upper GiResult Date: 04/29/2019History: J-tube placement. FINDINGS: A director of housing film of the abdomen reveals a tubeoverlying the abdo men. The bowel gas pattern is nonspecific in nature. Aftercontrast was injected throu gh the tube contrast appears to fill the jejunum.Therefore the tube appears to be in good position in the jejunum.IMPRESSION: Jejunostomy tube with its tip within the jejunum.Ct Chest Abd Pelv Wo ContResult Date: 04/20/2019Referring Physician: SHAYLEE HILLS Patient Name: EVELIO CARLIN FINAL REPORTFROM [facility] EXAM: C T chest without contrast and CT abdomen pelviswithout contrast DATE OF EXAM: 20:52:12 IMAGES: 681 HISTORY: reducedbreath sounds right lung, LLQ ten derness Comparison: 03/14/19 and 12/21/18FINDINGS: Axial images of the ches t, abdomen and pelvis are obtained without ivcontrast. Chest: Mediastinal assessmen t is limited without contrast. Imagequality limited by artifacts. Patchy lung opacit ies right greater than leftsimilar to prior. Small pleural effusions. Vascular includ ing coronarycalcifications. Mediastinum appears shifted to the right. Left hemid iaphragm iselevated. Abdomen and pelvis: Nonspecific bowel pattern, with post nena gicalchanges on the left. No definite free air. Organ assessment limited without iv contrast. No significant free fluid or free air. No bowel obstruction or abscessseen . Catheter and air in the bladder which is not well assessed. Left hiphardware part ially seen with old fracture deformity. G-J tube is present.Ventral hernia right of midline at abdominal wall with multiple small bowelloops without obstructive pattern. Mild right muscle swelling with possiblehematoma and calcification at ri ght groin image 117/120. Degenerative bonychanges. Multiple likely chronic com pression deformities at thoracic and lumbarspine. Bilateral L5-S1 spondylolys is and anterolisthesis.IMPRESSION: Right greater than left lung infiltrates and e ffusions. No bowelobstruction. 2 cm hyperdensity at a bowel loop in left pel vis image 90/120,possibly ingested material, or a tube fragment or post surgical charles ge. Ventralabdominal hernia seen. See above. One or more of the following dose reduct iontechniques were used: automated exposure control, adjustment of the mA and/or kVa ccording to patient size, use of iterative reconstructive technique. THISDOCUMENT H BEEN ELECTRONICALLY SIGNED Marcie Edge MD 04/20/2019 22:43 GINA Jenkins.Please call Katja berger Wireless Consultant [phone]) with questions. This reportwas electronically signed by: Marcie Edge MD 04/20/2019 10:44 PMUs Retroperitoneum CompResult Date: 04/23/2019Retroperitoneal sonogram clinical indication acute kidney insufficiency S tudyis limited secondary to position of the patient and the patient'sinability t o cooperate. The abdominal aorta and inferior vena cava are obscured.The right kidney measures 9.2 cm. There is no evidence of hydronephrosis. Theleft kidney measures 9.5 cm. There is no evidence of hydronephrosis. Foleycatheter is seen wi thin the bladder.IMPRESSION: 1. Limited study. 2. No evidence of hydronephrosisX r Chest PortResult Date: 05/01/2019AP portable film of the chest clinical indication in sertion of tracheostomy tubeStudy is compared to previous exam performed earlier in . Studydemonstrates a tracheostomy tube in situ. Again noted are bilateral pleur aleffusions. Infiltrate is present at the left base. There is no evidence ofpneumo thorax.IMPRESSION: 1. Tracheostomy tube in situ. 2. No evidence of pneumothorax. 3. Other findings as aboveXr Chest PortResult Date: 04/26/2019CHEST ONE VIEW HISTORY: I ntubation. COMPARISON: Previous studies. The patienthas been intubated. The endotrach eal tube tip is approximately 5.9 cms. abovethe tian. The left pleural effusi on has resolved. There has been no change ofa small right pleural effusion. No other s ignificant change is noted.IMPRESSION: Endotracheal tube tip approximately 5.9 cms. above the tian.Resolution of left pleural effusion.Xr Chest PortResult Pan e: 04/23/2019XR CHEST PORT CLINICAL INDICATION PROVIDED:. "Verification of PICC linepla cement." TECHNIQUE.: 2 AP views, chest. COMPARISON:. 04/19/2019. FINDINGS:. Thetip of the vascular catheter projects over the right axilla, likely a midlinecatheter p laced on 04/01/2019. The pericardial/cardiac silhouette is enlarged inthe transverse dimension. There is mild pulmonary vascular congestion andinterstitial edema. There is suggestion of small bilateral pleural effusions.Density in the lung bases may represent adjacent atelectasis or superimposedlower lung infiltrates. Foll ow-up radiographs are recommended.IMPRESSION:. 1. Midline cat heter projecting over the right axilla. 2. Mildcongestive failure with interstitial edema and small bilateral pleuraleffusions.Xr Chest PortResult Pan e: 04/19/2019History: Respiratory difficulty. FINDINGS: A frontal portable view of the chestis submitted for interpretation and is compared to the prior study of04/06/2019 . EKG leads overlie the chest. A right-sided midline catheter is notedin situ. The ca rdiac silhouette measures at the upper limits of normal. There ispatchy opacity noted at the lung bases, left greater than right, which may beinfiltrative or atelectatic in nature. A small left pleural effusion is noted.Mediastinal and hilar structures a re unremarkable.IMPRESSION: Basilar infiltrative change left greater than ri ght. Small leftpleural effusion.Duplex Lower Ext Venous LeftResult Date: 04/26/2019LEF T LOWER EXTREMITY DOPPLER History: Pain and swelling. High-resolution linearsonograp hy of the left lower extremity was performed using Color Doppler Flowand Duplex Doppl er spectral sonography. Findings: There is no evidence of deepvein thrombosis. The com mon femoral, visualized portions of the greatersaphenous, proximal, mid and dist al superficial femoral and popliteal veins werepatent. Spontaneous and phasic flow was noted. Normal compression and responseto augmentation was noted. The anterior tib ial vein and posterior tibial veinare not documented. The peroneal vein is patent. .IMPRESSION: No evidence of deep vein thrombosis. Suboptimal study.Duplex Uppe r Ext Venous LeftResult Date: 04/23/2019DUPLEX UPPER EXTREMITY-VENOUS LEFT HISTORY: Swe lling left upperextremity-evaluate for DVT PRIOR: Multiple: Most recent February 10, 2019: "Noevidence of deep vein thrombosis." TECHNICAL FACTORS: High resolution linea rgrayscale, color-flow and Doppler evaluation of the left upper extremity wasperformed from the neck to the antecubital fossa. FINDINGS: Normal antegradeflow, compress ibility of the deep venous vasculature, except for the internaljugular and subcl charbel veins due to their positions/anatomic location, as wellas augmentation of flow /phasicity is identified within the visualized portionsof the deep venous sy stem. No filling defects are identified that would besuspicious for, or representativ e of DVT.IMPRESSION: 1. No sonographic findings suggestive of thrombosis within thevisualized portions of the deep venous system of the left upper extremity.Duple x Upper Ext Venous RightResult Date: 04/26/2019RIGHT UPPER EXTREMITY DOPPLER H ISTORY: Pain and swelling. High-resolution linearsonography of the right upper extr emity was performed using Color Doppler Flowand Duplex Doppler Spectral sonograp hy. There is no evidence of a deep veinthrombosis. The cephalic vein could not be visualized. The right internaljugular, subclavian, axillary, brachial and basil ic veins are patent andcompletely compressible. Spontaneous and phasic jhon w is noted.IMPRESSION: No evidence of deep vein thrombosis. Suboptimal study.Medica tions:Current Facility-Administered MedicationsMedication Dose Route Frequen cy phosphorus (K PHOS NEUTRAL) 250 mg tablet 1 Tab 1 Tab Oral BID LORazepam (ATIVAN ) injection 1 mg 1 mg IntraVENous QHS predniSONE (DELTASONE) tablet 10 mg 10 mg Oral DAILY WITH BREAKFAST meropenem (MERREM) 500 mg in 0.9% sodium chloride (MBP/ADV) 50 mL MBP 0.5 gIntraVENous Q12H metoprolol tartrate (LOPRESSOR) tablet 2 5 mg 25 mg Per J Tube BID metoprolol (LOPRESSOR) injection 5 mg 5 mg IntraVE Nous Q6H PRN vits A and D-white pet-lanolin (A&D) ointment Topical PRN vancomycin 50 mg/mL oral solution (compounded) 125 mg 125 mg Per G Tube Q6H lamoTRIgine (LaMI Ctal) tablet 100 mg 100 mg Per G Tube QPM lamoTRIgine (LaMICtal) tablet 50 mg 50 mg Per G Tube DAILY sodium chloride (NS) flush 5-40 mL 5-40 mL IntraVENous PRN pantoprazole (PROTONIX) 40 mg in 0.9% sodium chloride 10 mL injection 40 mgIntraVENo us DAILY acetaminophen (TYLENOL) tablet 650 mg 650 mg Oral Q6H PRN ondansetron (ZO ANABELLE) injection 4 mg 4 mg IntraVENous Q6H PRN albuterol-ipratropium (DUO-NEB) 2.5 MG-0.5 MG/3 ML 3 mL Nebulization Q6HWA RT acetylcysteine (MUCOMYST) 100 mg/mL (10 %) nebulizer solution 400 mg 4 mLInhalation TID RT miconazole (MICOTIN) 2 % cream Topical BID budesonide (PULMICORT) 500 mcg/2 ml nebulizer suspension 500 mcg N ebulizationBID RT cinacalcet (SENSIPAR) tablet 60 mg 60 mg Oral DAILY heparin (porcine) injection 5,000 Units 5,000 Units SubCUTAneous [id number] Problems: Pneum onia (11/08/2018) Acute hypoxemic respiratory failure (HCC) (03/25/2019) COPD with ac manzanita exacerbation (HCC) (04/19/2019) Acute on chronic respiratory failure with hypoxia and hypercapnia (HCC)(04/19/2019) Scrotal rash (04/21/2019)Assessment:1 ACUTE H YPERCAPNIC AND HYPOXIC RESPIRATORY FAILURE DUE TO SEVERE COPD/ PNEUMONIA R ML , R L L - PSEUDOMONAS1. ATELECTASIS R L L , L L L RESOLVED2. PLEURAL EFFUSION AR E RESOLVING 3. RESPIRATORY ALKALOSIS PH = 7.53 4. SEVERE COPD 5. SEVERE META BOLIC ENCEPHALOPATHY DUE TO PNEUMONIA , SEPSIS IMPROVED POST TRACHEOSTOMY 04/156. MUSCLE FATIGUE BETTER7. SEVERE MENTAL RETARDATION8. SEIZURE VS TREMORS ON LAMICTAL SEEN BY DR SCHNEIDER 9. PNEUMONIA - G N R , PSEUDOMONAS AERU [id number]. SEPSIS L A = 2.5 RESOLVING 11. BACTEREMIA G + COCCI - STAPH EPIDERMIT IS 12. SEVERE MAL NUTRITION ,S/P J TUBE INSERTION 05/01/201913. ALB = 1 .4 SEVERE HYPOALBUMINEMIA 14. MILD NOAH CR = 2.2 Plan: 1 CONTINUE DIOGO TILATOR SUPPORT , DECREASE RATE = 10 / MT , DECREASE TV= 400 ML ,PEEP= 5 CM , FI O2 = 30 %, PATIENT IS BEING DISCHARGED TO [facility] -WE[facility] SHOULD BE ATTEMPTED TH ERE . TRACHEOSTOMY IS TO KEEP AIR WAYS PATENT , DO NOT DE CANNULATE PATIEN TIS UNABLE TO EXPECTORATE SECRETIONS1. DUO NEB Q 4 H2. MUCOMYST 10 % VIA MIN I NEB Q 8 H3. D/ C LASIX RENAL FUNCTION DETERIORATING , CR = 2.24. DISCUSSED WI TH RN ON BED SIDE 5 CONT MEROPENEM AND VANCOMYCIN PER DR AHUMADA I D [address] MOTLEY7 PROSTAT FOR SEVERE HYPOALBUMINEMI 8 D/C , I V SOLUMEDROL FOR COPD , START PREDNISONE 10 MG VIA P E GDAILY 9 MUCOMYST TO LOOSEN TRACHEOBRONCHIAL SECTERTIONS CHEST P T TO MOBILIZE SEC RETIONS 8 CONT CHEST P T 9 HAVE . DISCUSSED WITH HIS SISTER MRS COLMENARES ON BED SIDE AGREE WITH D/C PLANNING Krystian Monae MD F.C.C.P.May 07, 201911:39 AM Name Value Range Interpretation Code Description Data Harriett rce(s) Supporting Document(s ) ID Date Data Source [id number] 05/07/2019 02:26:21 PM EST [facility] Pt left facility via EMS to [facility] for rehabilitation. Name Value Range Interpretation Code Description Data Harriett rce(s) Supporting Document(s ) ID Date Data Source [id number] 05/07/2019 01:55:49 PM [facility] Received call from Syeda Medina stating that pt's sister Yuliet is on the phone withher and she will conference her in. CM Director and myself was conferenced in.Yuliet expressed all her concerns about pt's medical care and questioned whetheror not pt is ready for discharge. She was made aware MD's have determined thathe is ready for discharge and if she had further questions she can shilo ch out toMD's, she was also made aware of her right to appeal discharge. Yuliet had hers on-inlaw there with her Dr. Ovalle who told her to go ahead with thedischarge. She c ayan back to the phone and said to go ahead with the discharge.SW on unit made aware and is coordinating the discharge. Name Value Range Interpretation Code Description Data Harriett rce(s) Supporting Document(s ) ID Date Data Source [id number] 05/07/2019 12:46:15 PM [facility] TRANSFER - OUT REPORT:Verbal report give n to Geovanna RN(name) on Evelio Carlin being transferred [facility](unit) for routine progression of careReport consisted of patient's Situat ion, Background, Assessment andRecommendations(SBAR).Information fro m the following report(s) SBAR, Kardex, Procedure Summary andIntake/Output was r eviewed with the receiving nurse.Lines:Peripheral IV 05/06/19 Left (Active)Site Assessment Clean, dry, & intact 05/07/2019 7:54 AMPhlebitis Assessment 0 05/07/2019 7:54 AMInfiltration Assessment 0 05/07/2019 7:54 AMDressing Status Clean, dry, & intact 05/07/2019 7:54 AMDressing Type Transparent 05/07/2019 7:54 AMHub C olor/Line Status End cap changed 05/07/2019 7:54 AMAction Taken Open ports on tubing capped 05/07/2019 7:54 AMAlcohol Cap Used Yes 05/07/2019 7:54 AMOpportunity for qu estions and clarification was provided.Patient transported with: O2 @ trach collar liters Name Value Range Interpretation Code Description Data Harriett rce(s) Supporting Document(s ) ID Date Data Source [id number] 05/07/2019 12:02:16 PM EST [facility] Care Management InterventionsPCP Verifie d by CM: YesMode of Transport at Discharge: ALSTransition of Care Consult (CM Consul t): Discharge PlanningMyChart Signup: NoDischarge Durable Medical Equipment: N oPhysical Therapy Consult: NoOccupational Therapy Consult: NoSpeech Therapy Consul t: NoCurrent Support Network: Nursing Facility([facility])The Patient and/ or Patient Engineering Group Manager was Provided with a Choice of Providerand Agrees with the Di scharge Plan?: YesFreedom of Choice List was Provided with Basic Dialogue that Suppor ts thePatient's Individualized Plan of Care/Goals, Treatment Preferences and Sh aresthe Quality Data Associated with the Providers?: YesVeteran Resource Informat ion Provided?: RefusedDischarge LocationDischarge Placement: Rehab Unit Subacute([facility])Pt discharging to [facility] today via [employer] d mobile at 2 pm. RNis aware and was provided with Nursing office number [phone] for RN to RNreport. SW Power Brake Operator spoke with pt's sister/guardian Yuliet who is aware a ndagreeable. Spoke with Chica design director at [facility], jeff head as requested and facility is ready to accept the pt at 2 pm. Chica marsh is aware and agreeable to transport time. Name Value Range Interpretation Code Description Data Harriett rce(s) Supporting Document(s ) ID Date Data Source [id number] 05/07/2019 11:58:43 AM EST [facility] ID Progress Note05/07/2019Subjective:S/p tracheostomy and jejunostomy tube placement.Blood cx remain negativeResp c x with pseudomonasOn vent support.Wbc wnlAfebrileNo new events.Objective:Revie w of SystemsPatient is unable to provideVitals:Patient [facility]: BP Temp Pulse Resp SpO2 Dsqaih46/23/20 1131 146/86 98.2 F (36.8 C) 70 16 97 % -05/07/19 1108 - - 99 16 98 % -05/07/19 0744 - - - - 97 % -05/07/19 07 29 145/75 98.2 F (36.8 C) 75 15 97 % -05/07/19 0545 - - 77 13 98 % -05/07/19 0356 - - - - - 52.2 kg (115 lb)05/07/19 0333 126/85 98.9 F (37.2 C) 73 14 99 % - 0158 - - 99 18 98 % -05/06/19 2329 - 98.8 F (37.1 C) 96 19 98 % -05/06/19 1 950 - - 92 17 98 % -05/06/19 1916 (!) 167/95 98.3 F (36.8 C) 86 16 98 % -05/06/19 1 701 - - 87 21 97 % -Tmax: Temp (24hrs), Av.5 F (36.9 C), Min:98.2 F (36.8 C), Max:98.9 F(37.2 C)Physical Exam:General: Awake on vent no distress Eyes: Conjunctivae/corneas clear. PERRLNeck: Supple, symmetrical, trachea midline,+ t rachLungs: bilateral breath sounds with basal crackles..Heart: Regular rate and rhythm, S1, S2 normal, no murmurAbdomen: Soft, non-tender. Bowel sounds normal. N o masses, Noorganomegaly.peg+J tube+Back: No CVA tenderness.Extremities: No cyanos is ,chronic lymphedema .Pulses: 2+ and symmetric all extremities.Skin: Skin col or, texture, turgor normal. No rashes or lesionsLymph nodes: Cervical, supraclavi cular, and axillary nodes normal.Current Facility-Administered MedicationsMedicat ion Dose Route Frequency phosphorus (K PHOS NEUTRAL) 250 mg tablet 1 Tab 1 Tab Oral BID LORazepam (ATIVAN) injection 1 mg 1 mg IntraVENous QHS predniSONE (DELTASONE) tablet 10 mg 10 mg Oral DAILY WITH BREAKFAST meropenem (MERREM) 500 mg in 0.9% sodiu m chloride (MBP/ADV) 50 mL MBP 0.5 gIntraVENous Q12H metoprolol tartrate ( LOPRESSOR) tablet 25 mg 25 mg Per J Tube BID metoprolol (LOPRESSOR) injection 5 mg 5 mg IntraVENous Q6H PRN vits A and D-white pet-lanolin (A&D) ointment Topical PRN vancomycin 50 mg/mL oral solution (compounded) 125 mg 125 mg Per G Tube Q 6H lamoTRIgine (LaMICtal) tablet 100 mg 100 mg Per G Tube QPM lamoTRIgine (LaMICtal ) tablet 50 mg 50 mg Per G Tube DAILY sodium chloride (NS) flush 5-40 mL 5-40 mL IntraVENous PRN pantoprazole (PROTONIX) 40 mg in 0.9% sodium chloride 10 mL inje ction 40 mgIntraVENous DAILY acetaminophen (TYLENOL) tablet 650 mg 650 mg Oral Q6H PRN ondansetron (ZOFRAN) injection 4 mg 4 mg IntraVENous Q6H PRN albuterol-ipratr opium (DUO-NEB) 2.5 MG-0.5 MG/3 ML 3 mL Nebulization Q6HWA RT acetylcysteine (M UCOMYST) 100 mg/mL (10 %) nebulizer solution 400 mg 4 mLInhalation TID RT miconazol e (MICOTIN) 2 % cream Topical BID budesonide (PULMICORT) 500 mcg/2 ml nebu lizer suspension 500 mcg NebulizationBID RT cinacalcet (SENSIPAR) tablet 60 mg 60 m g Oral DAILY heparin (porcine) injection 5,000 Units 5,000 Units SubCUTAneous Q1 2HLabs:Recent Labs 05/07/200350 05/06/200300WBC 10.8* 9.3HGB 9.7* 9.3*PL T 297 356BUN 45* 43*CREA 2.13* 1.93*SGOT 11* 15AP 86 82TBILI 0.3 0.4Cultures:Lab Resu ltsComponent Value Date/Time Culture result: MODERATE PSEUDOMONAS AERUGINOSA (A) 04/15 05:00 PM Culture result: NO GROWTH 5 DAYS 04/25/2019 12:10 PM Culture result: NO GROWTH 5 DAYS 04/25/2019 12:05 PMRadiology:No results found.Assessment: Staph sepsis. Aspiration pneumonia (pseudomonas) Acute COPD exacerbation. Acute respiratory failure. Pleural effusion. Dysphagia Fever Plan:1. Cont inue meropenem x 3 more days2. Continue oral vancomycin prophylaxis doseNatasha Dudley MDJanuary 201911:56 AM Name Value Range Interpretation Code Description Data Harriett rce(s) Supporting Document(s ) ID Date Data Source [id number] 05/07/2019 11:09:35 AM EST [facility] Pt T/C SANDHYA DAVIS .Nancy aware. Name Value Range Interpretation Code Description Data Harriett rce(s) Supporting Document(s ) ID Date Data Source [id number] 05/07/2019 10:33:51 AM EST [facility] Discharge SummaryPatient: Evelio Parks einicole Sex: male DOA: 04/19/2019Date of : 1950 A ge: 68 y.o. LOS: 18 daysAdmit Date: 04/19/2019Discharge Date: 05/07/2019Dischar ge Diagnoses:Problem List as of 05/07/2019 Date Reviewed: 05/01/2019 Codes Cla ss Noted - Resolved Scrotal rash ICD-10-CM: C08IIM-4-PV: 782.1 04/21/2019 - Present C OPD with acute exacerbation (HCC) ICD-10-CM: J44.1ICD-9-CM: 491.21 04/19/2019 - Presen t Acute on chronic respiratory failure with hypoxia and hypercapnia (HCC)ICD-10-CM: J96.21, J96.22ICD-9-CM: 518.84, 786.09, 799.02 04/19/2019 - Present Acute hypoxem ic respiratory failure (HCC) ICD-10-CM: J96.01ICD-9-CM: 518.81 03/25/2019 - Pre sent Pressure injury of right heel, stage 2 (HCC) ICD-10-CM: L89.612ICD-9-CM: 707.07 , 707.22 02/09/2019 - Present Leg wound, right, initial encounter ICD-10-CM: S81. 345ERVK-6-RH: 894.0 02/09/2019 - Present SOB (shortness of breath) ICD-10-CM: R06.02I CD-9-CM: 786.05 02/08/2019 - Present Acute respiratory failure with hypoxia (HCC) I CD-10-CM: J96.01ICD-9-CM: 518.81 01/10/2019 - Present Pneumonia involving right lung I CD-10-CM: J18.9ICD-9-CM: 486 01/10/2019 - Present Hyponatremia ICD-10-CM: E87.1ICD -9-CM: 276.1 01/10/2019 - Present Generalized anxiety disorder (Chronic) ICD-10-CM: F4 1.1ICD-9-CM: 300.02 12/30/2018 - Present Sepsis due to undetermined organism (HCC ) ICD-10-CM: A41.9ICD-9-CM: 038.9 12/12/2018 - Present COPD (chronic obstructive pulm onary disease) (HCC) ICD-10-CM: J44.9ICD-9-CM: 496 11/08/2018 - Present Acute respiratory distress ICD-10-CM: R06.03ICD-9-CM: 518.82 11/08/2018 - Pres ent Pneumonia ICD-10-CM: J18.9ICD-9-CM: 486 11/08/2018 - Present COPD exacerbation (H CC) ICD-10-CM: J44.1ICD-9-CM: 491.21 11/08/2018 - Present Paraesophageal hiata l hernia ICD-10-CM: K44.9ICD-9-CM: 553.3 09/26/2015 - PresentDischarge Condition: Stablenormal appearance, no distressHospital Course:Evelio Carlin is 68 y.o. male with significant PMhx of Dysphagia, recurrentaspiration pneumonia, s/p g/t p lacement on 11/17/18 and conversion to PEJ on02/07/19, hyperlipidemia, hyperparathy roid unspecified, seizure, large hiatalhernia, anxiety disorder, personal history of pulmonary embolus, COPD, GERD,SChizophrenia unspecified, Kyphosis , Parkinson disease, Severe intellectualdisabilities, contractures, and generalized muscle weakness. He was admitted for acute hypoxemic respiratory failure. He is s/p tracestomyand in progress of weaning tolerating T- tube, NOAH. Siri ent Vitals for the past 24 hrs: Temp Pulse Resp BP DpS87105/07/19 0729 98.2 F (36.8 C) 75 15 145/75 97 %05/07/19 0545 - 77 13 - 98 %05/07/19 0333 98.9 F (37.2 C) 73 1 4 126/85 99 %05/07/19 0158 - 99 18 - 98 %05/06/19 2329 98.8 F (37.1 C) 96 19 - 98 %05/06/19 1950 - 92 17 - 98 %05/06/19 1916 98.3 F (36.8 C) 86 16 (!) 167/95 98 %05/06/19 1701 - 87 21 - 97 %Physical Exam:General: Alert, cooperative, no di stress, on ventEyes: Conjunctivae/corneas clear, OS iridectomy?.EOMs intact.Mouth/ Throat: Lips, mucosa, and tongue normal.Neck: Supple, symmetrical, trachea midline, no adenopathy, thyroid: noenlargement/tenderness/nodules, no car otid bruit and no JVD.Lungs: Mainly clear to auscultation bilaterally.Heart: Regu lar rate and rhythm, S1, S2 normal, no murmur, click, rub or gallop.Abdomen: Soft, non-tender. G tube and J tube sites clean, Bowel sounds normal.Extremities: Extremities contracted, no cyanosis or edema,Pulses: 1+ and symmetric all extre mities.Skin: Skin color, texture, turgor normal. No rashes or lesionsLymph nodes: Anterior Cervical Lymph nodes normalNeurologic: Cranial nerve assessme nt limited due to intubation.CNII-XII grosslyintact Consults: Pulmonary/Critic al CareSignificant Diagnostic Studies: radiology: CXR: No changeDischarge Medi cations:Current Discharge Medication ListSTART taking these medications Detai lsphosphorus (K PHOS NEUTRAL) 250 mg tablet Take 1 Tab by mouth two (2) times aday.Q ty: 44 Tab, Refills: 1predniSONE (DELTASONE) 10 mg tablet Take 10 mg by mouth daily ( with breakfast).Qty: 44 Tab, Refills: 1meropenem 500 mg IVPB 500 mg by IntraVE Nous route every twelve (12) hours everytwelve (12) hours for 7 days.Qty: 1 4 Dose, Refills: 0methylPREDNISolone, PF, (SOLU-MEDROL) 40 mg/mL solution 1 mL by IntraVENousroute every twelve (12) hours for 7 days.Qty: 14 mL, Refills: 0metoprolol tartrate (LOPRESSOR) 25 mg tablet 1 Tab by Per J Tube route two (2)times a day for 30 days.Qty: 60 Tab, Refills: 0vancomycin 50 mg/mL oral solution (compounded) 2.5 mL by Per G Tube route everysix (6) hours for 7 days.Qty: 70 mL, Refills: 0CONTINUE thes e medications which have NOT CHANGED DetailslamoTRIgine (LAMICTAL) 25 mg rapi d dissolve tablet TAKE 2 TABLETS BY MOUTH EVERY12 HOURSRefills: 0zinc oxide 20 % o intment Apply to affected area as needed for Skin Irritation.omeprazole (PRILOSEC) 2 mg/mL susp 2 mg/mL oral suspension (compounded) Take 20mL by mouth daily.Qt y: 20 mL, Refills: 0heparin sodium,porcine (HEPARIN, PORCINE,) 5,000 unit/mL inject ion 1 mL bySubCUTAneous route every twelve (12) hours every twelve (12) hours.Qty: 10 mL, Refills: 0acetaminophen (TYLENOL) 32MG/ML soln solution Take 20.3 mL by mo uth every four(4) hours as needed for Pain or Fever.Qty: 500 mL, Refills: 0acetylcyste ine (MUCOMYST) 100 mg/mL (10 %) nebulizer solution Take 4 mL byinhalation two (2) times a day.clorazepate (TRANXENE) 3.75 mg tablet 1 Tab by Per G Tube route nightly . MaxDaily Amount: 3.75 mg.Qty: 30 Tab, Refills: 5 Associated Diagnoses: General ized anxiety disordercinacalcet (SENSIPAR) 30 mg tablet Take 2 Tabs by mouth daily.Qty : 60 Tab, Refills: 5albuterol-ipratropium (DUO-NEB) 2.5 mg-0.5 mg/3 ml nebu 3 mL b y Nebulizationroute every six (6) hours. Every 6 hours while awakeQty: 30 Nebule, Refills: 0budesonide (PULMICORT) 0.5 mg/2 mL nbsp 2 mL by Nebulization route two (2) timesa day.Qty: 60 Each, Refills: 0STOP taking these medications multivitamin (OZZIE QUINN) liqd Comments:Reason for Stopping:Recent Labs:Labs: Results:C hemistry Recent Labs 05/06/200305/05/201040GLU 121* 94 -- NA 150* 149* --K 3.9 3.8 --CL 117* 114* --CO2 32 33* 36*BUN 45* 43* --CREA 2.13 * 1.93* --CA 9.7 9.7 --AGAP 6* 6* --AP 86 82 --TP 6.5 6.6 --ALB 2.2* 2.3* --MINO B 4.3 4.3 --AGRAT 0.5* 0.5* --CBC w/Diff Recent Labs 05/06/2003WB C 10.8* 9.3RBC 3.19* 3.05*HGB 9.7* 9.3*HCT 32.1* 30.6*PLT 297 356GRANS 74* 69LYMPH 17* 22EOS 1 1Cardiac Enzymes No results for input(s): CPK, CKND1, NESTOR in the last 72 hours.No lab exists for component: CKRMB, TROIPCoagulation No results for input(s) : PTP, INR, APTT, INREXT, INREXT in the last72 hours.Lipid Panel Lab ResultsComp onent Value Date/Time Cholesterol, total 156 03/12/2019 06:50 AM HDL Cholesterol 71 1 05/12/2018 06:50 AM LDL, calculated 65.6 03/12/2019 06:50 AM VLDL, calculated 19. 4 03/12/2019 06:50 AM Triglyceride 97 03/12/2019 06:50 AM CHOL/HDL Ratio 2.2 1 05/12/2018 06:50 AMBNP No results for input(s): BNPP in the last 72 hours.Live r Enzymes Recent Labs TP 6.5ALB 2.2*AP 86SGOT 11*Thyroid Studies Lab Res ultsComponent Value Date/Time TSH 2.990 04/23/2019 07:19 AM Diagnosis Date Note d Scrotal rashLocal antifungal tx 04/21/2019 COPD with acute exacerbation (HCC) 04/19/2019 Acute on chronic respiratory failure with hypoxia and hyp ercapnia (HCC)04/19/2019 Acute hypoxemic respiratory failure (HCC) Vent supportIs s/p tracheostomyCont weaning to T tube as tolerated Failed CPAP trial - placed main k on vent 03/25/2019 PneumoniaNo longer febrile CXR is unchanged MeropenemMucomy stDuoneb WBC 16--> 10--> 8.8-> 9.3 AKIGentle hydrationBUN/Creat 42/1.9--> 43/2.12--> 43/1.9 Hold diuretics with increased creatinine Dysphagia J tube for nutriti Grisel tube for stomach decompression 11/08/2018Transferred to step down DC pl anning to vent unit DC postponed as per family request - unable to achieve conse nsusHowever as per pulmonary, renal, ID - pt is stable for dc to vent unit/LTACHActiv ity: Activity as toleratedDiet: PEG feedingDischarge to: LTACH/ Vent unitEdw emmett Bustos MDJanuary 201910:06 AM Name Value Range Interpretation Code Description Data Harriett rce(s) Supporting Document(s ) ID Date Data Source [id number] 05/07/2019 10:05:32 AM EST [facility] Discharge SummaryPatient: Evelio Parks cain Sex: male DOA: 04/19/2019Date of : 1950 A ge: 68 y.o. LOS: 17 daysAdmit Date: 04/19/2019Discharge Date: 05/06/2019Dischar ge Diagnoses:Problem List as of 05/06/2019 Date Reviewed: 05/01/2019 Codes Cla ss Noted - Resolved Scrotal rash ICD-10-CM: J51LNP-6-JX: 782.1 04/21/2019 - Present C OPD with acute exacerbation (HCC) ICD-10-CM: J44.1ICD-9-CM: 491.21 04/19/2019 - Presen t Acute on chronic respiratory failure with hypoxia and hypercapnia (HCC)ICD-10-CM: J96.21, J96.22ICD-9-CM: 518.84, 786.09, 799.02 04/19/2019 - Present Acute hypoxem ic respiratory failure (HCC) ICD-10-CM: J96.01ICD-9-CM: 518.81 03/25/2019 - Pre sent Pressure injury of right heel, stage 2 (HCC) ICD-10-CM: L89.612ICD-9-CM: 707.07 , 707.22 02/09/2019 - Present Leg wound, right, initial encounter ICD-10-CM: S81. 361WMIT-9-YP: 894.0 02/09/2019 - Present SOB (shortness of breath) ICD-10-CM: R06.02I CD-9-CM: 786.05 02/08/2019 - Present Acute respiratory failure with hypoxia (HCC) I CD-10-CM: J96.01ICD-9-CM: 518.81 01/10/2019 - Present Pneumonia involving right lung I CD-10-CM: J18.9ICD-9-CM: 486 01/10/2019 - Present Hyponatremia ICD-10-CM: E87.1ICD -9-CM: 276.1 01/10/2019 - Present Generalized anxiety disorder (Chronic) ICD-10-CM: F4 1.1ICD-9-CM: 300.02 12/30/2018 - Present Sepsis due to undetermined organism (HCC ) ICD-10-CM: A41.9ICD-9-CM: 038.9 12/12/2018 - Present COPD (chronic obstructive pulm onary disease) (HCC) ICD-10-CM: J44.9ICD-9-CM: 496 11/08/2018 - Present Acute respiratory distress ICD-10-CM: R06.03ICD-9-CM: 518.82 11/08/2018 - Pres ent Pneumonia ICD-10-CM: J18.9ICD-9-CM: 486 11/08/2018 - Present COPD exacerbation (H CC) ICD-10-CM: J44.1ICD-9-CM: 491.21 11/08/2018 - Present Paraesophageal hiata l hernia ICD-10-CM: K44.9ICD-9-CM: 553.3 09/26/2015 - PresentDischarge Condition: Stablenormal appearance, no distressHospital Course:Evelio Carlin is 68 y.o. male with significant PMhx of Dysphagia, recurrentaspiration pneumonia, s/p g/t p lacement on 11/17/18 and conversion to PEJ on02/07/19, hyperlipidemia, hyperparathy roid unspecified, seizure, large hiatalhernia, anxiety disorder, personal history of pulmonary embolus, COPD, GERD,SChizophrenia unspecified, Kyphosis , Parkinson disease, Severe intellectualdisabilities, contractures, and generalized muscle weakness. He was admitted for acute hypoxemic respiratory failure. He is s/p tracestomyand in progress of weaning tolerating T- tube, NOAH. Siri ent Vitals for the past 24 hrs: Temp Pulse Resp BP KhV16105/06/19 0952 - 88 22 - 99 % 05/06/19 0738 98 F (36.7 C) 87 20 155/70 -05/06/19 0540 - 79 12 - 97 %05/06/19 03 55 97.4 F (36.3 C) 82 16 155/86 96 %05/06/19 0159 - 85 16 - 98 %05/05/19 23 49 98 F (36.7 C) 86 17 154/84 98 %05/05/19 2020 - 88 17 - 98 %05/05/19 2017 98.1 F (36.7 C) 90 20 137/90 97 %05/05/19 1945 - - - - 98 %05/05/19 1728 - 90 20 - 97 %04/16 05/04 1509 98.3 F (36.8 C) 81 16 144/84 97 %05/05/19 1353 - 97 14 - 97 %05/05/19 11 23 - 84 20 136/82 97 %Physical Exam:General: Alert, cooperative, no distress, on vent Eyes: Conjunctivae/corneas clear, OS iridectomy?.EOMs intact.Mouth/Throat: Li ps, mucosa, and tongue normal.Neck: Supple, symmetrical, trachea midline, no adenopa thy, thyroid: noenlargement/tenderness/nodules, no car otid bruit and no JVD.Lungs: Mainly clear to auscultation bilaterally.Heart: Regu lar rate and rhythm, S1, S2 normal, no murmur, click, rub or gallop.Abdomen: Soft, non-tender. G tube and J tube sites clean, Bowel sounds normal.Extremities: Extremities contracted, no cyanosis or edema,Pulses: 1+ and symmetric all extre mities.Skin: Skin color, texture, turgor normal. No rashes or lesionsLymph nodes: Anterior Cervical Lymph nodes normalNeurologic: Cranial nerve assessme nt limited due to intubation.CNII-XII grosslyintact Consults: Pulmonary/Critic al CareSignificant Diagnostic Studies: radiology: CXR: No changeDischarge Medi cations:Current Discharge Medication ListSTART taking these medications Detai lsmeropenem 500 mg IVPB 500 mg by IntraVENous route every twelve (12) hours everytwelv e (12) hours for 7 days.Qty: 14 Dose, Refills: 0methylPREDNISolone, PF, (SOLU- MEDROL) 40 mg/mL solution 1 mL by IntraVENousroute every twelve (12) hours for 7 days.Qty: 14 mL, Refills: 0metoprolol tartrate (LOPRESSOR) 25 mg tablet 1 Tab by Per J Tube route two (2)times a day for 30 days.Qty: 60 Tab, Refills: 0vancomycin 5 0 mg/mL oral solution (compounded) 2.5 mL by Per G Tube route everysix (6) hours for 7 days.Qty: 70 mL, Refills: 0CONTINUE these medications which have NOT CHANGED Detai lslamoTRIgine (LAMICTAL) 25 mg rapid dissolve tablet TAKE 2 TABLETS BY MOUTH EVERY12 H OURSRefills: 0zinc oxide 20 % ointment Apply to affected area as needed for Skin Irri tation.omeprazole (PRILOSEC) 2 mg/mL susp 2 mg/mL oral suspension (compounded) Take 20mL by mouth daily.Qty: 20 mL, Refills: 0heparin sodium,porcine (HEPARIN, PORCIN E,) 5,000 unit/mL injection 1 mL bySubCUTAneous route every twelve (12) h ours every twelve (12) hours.Qty: 10 mL, Refills: 0acetaminophen (TYLENOL) 32MG/M L soln solution Take 20.3 mL by mouth every four(4) hours as needed for Pain or Feve r.Qty: 500 mL, Refills: 0acetylcysteine (MUCOMYST) 100 mg/mL (10 %) nebulizer so lution Take 4 mL byinhalation two (2) times a day.clorazepate (TRANXENE) 3.75 mg table t 1 Tab by Per G Tube route nightly. MaxDaily Amount: 3.75 mg.Qty: 30 Tab, Refills: 5 Associated Diagnoses: Generalized anxiety disordercinacalcet (SENSIPAR) 30 mg tabl et Take 2 Tabs by mouth daily.Qty: 60 Tab, Refills: 5albuterol-ipratropium (DUO-NEB ) 2.5 mg-0.5 mg/3 ml nebu 3 mL by Nebulizationroute every six (6) hours. E very 6 hours while awakeQty: 30 Nebule, Refills: 0budesonide (PULMICORT) 0.5 mg/ 2 mL nbsp 2 mL by Nebulization route two (2) timesa day.Qty: 60 Each, Refills: 0STOP taking these medications multivitamin (MULTI-DELYN, WELLESSE) liqd Comments:Re ason for Stopping:Recent Labs:Labs: Results:Chemistry Recent Labs 400 05/05/201040 05/04/2003GLU 94 -- -- 156*NA 149* -- -- 147*K 3.8 -- -- 3.7CL 114* -- -- 110*CO2 33* 36* 37* 33*BUN 43* -- -- 43*CREA 1.93* -- -- 2.12*CA 9.7 -- -- 10.1AGAP 6* -- -- 8*AP 82 -- -- 66TP 6.6 -- -- 6.4ALB 2.3* -- -- 2.2*GLOB 4.3 -- -- 4.2AGRAT 0.5* -- -- 0.5*CBC w/Diff Recent Labs 05/04/2003WBC 9.3 8.8RBC 3.05* 2.83*HGB 9.3* 8.7*HCT 30.6* 27.9*PLT 356 452*GRANS 69 88*LYMPH 22 8*EOS 1 0Ca rdiac Enzymes No results for input(s): CPK, CKND1, NESTOR in the last 72 hours.No lab e xists for component: CKRMB, TROIPCoagulation No results for input(s): PTP, INR, APTT, INREXT in the last 72hours.Lipid Panel Lab ResultsComponent Value Date/Time Cholest maria r, total 156 03/12/2019 06:50 AM HDL Cholesterol 71 03/12/2019 06:50 AM LDL, calculated 65.6 03/12/2019 06:50 AM VLDL, calculated 19.4 03/12/2019 06:50 AM Trig lyceride 97 03/12/2019 06:50 AM CHOL/HDL Ratio 2.2 03/12/2019 06:50 AMBNP No resu lts for input(s): BNPP in the last 72 hours.Liver Enzymes Recent Labs 08956XB 6.6ALB 2.3*AP 82SGOT 15Thyroid Studies Lab ResultsComponent Value Date/ Time TSH 2.990 04/23/2019 07:19 AM Diagnosis Date Noted Scrotal rashLocal antifungal tx 04/21/2019 COPD with acute exacerbation (HCC) 04/19/2019 Acute on chronic resp iratory failure with hypoxia and hypercapnia (HCC)04/19/2019 Acute hypoxemic respira tory failure (HCC) Vent supportIs s/p tracheostomyCont weaning to T tube as to lerated Failed CPAP trial - placed back on vent 03/25/2019 PneumoniaNo longer febr ile CXR is unchanged MeropenemMucomystDuoneb WBC 16--> 10--> 8.8-> 9.3 AKIGentle hyd rationBUN/Creat 42/1.9--> 43/2.12--> 43/1.9 Hold diuretics with increased creatinine Dysphagia J tube for nutritionG tube for stomach decompression 11/08/2018Transfer red to step down DC planning to vent unit Activity: Activity as toleratedDiet: PEG feedingDischarge to: LTACH/ Vent Fabiola Bustos MDJanuary 201910:06 AM Name Value Range Interpretation Code Description Data Harriett rce(s) Supporting Document(s ) ID Date Data Source [id number] 05/07/2019 09:50:46 AM EST [facility] - [facility] RENAL Progress TylerEvelio Abrahambein68 y .o.Admit Date: 04/19/2019Active Problems: Pneumonia (11/08/2018) Acute hypoxemic r espiratory failure (HCC) (03/25/2019) COPD with acute exacerbation (HCC) (04/19/2019) Acute on chronic respiratory failure with hypoxia and hypercapnia (HCC)(04/19/2019) Scrotal rash (04/21/2019)Subjective:s/p TrachnormootensiveTolerating feeding wel lPertinent items are noted in the History of Present Illness.Objective:Visit VitalsBP 145/75 (BP 1 Location: Right arm, BP Patient Position: At rest;Head of bedelevated (C omment degrees))Pulse 75Temp 98.2 F (36.8 C)Resp 15Ht 5' 2" (1.575 m)Wt 52.2 kg (1 15 lb)SpO2 97%BMI 21.03 kg/m Intake and Output:Date 05/06/19 0700 - 05/07/19 065 9 05/07/19 0700 - 05/08/19 0659Shift 6292-6353 1551-0223 24 Hour Total 0700-1 859 3669-9714 24 Hour TotalINTAKENG/GT 697 449 9547 Water Flush Volume (mL) (G/J T ube) 200 100 300 Medication Volume (G/J Tube) 50 50 Intake (ml) (G/J Tube) 540 540 1080Shift Total(mL/kg) 740(13.5) 690(13.2) 1430(27.4)OUTPUTEmesis/NG outp ut 350 350 Output (ml) (PEG/Gastrostomy Tube) 350 350Shift Total(mL/kg) 350(6.4 ) 350(6.7)NET 390 690 1080Weight (kg) 54.7 52.2 52.2 52.2 52.2 52.2Medications Revi ewed:Current Facility-Administered MedicationsMedication Dose Route Frequen cy Provider Last Rate Last Dose predniSONE (DELTASONE) tablet 10 mg 10 mg Oral GABRIELE LY WITH BREAKFAST Monae,Nihal, MD 10 mg at 05/07/19 0937 meropenem (MERREM) 500 mg in 0.9% sodium chloride (MBP/ADV) 50 mL MBP 0.5 gIntraVENous Q12H Natasha Dudley MD 1 00 mL/hr at 05/07/19 0933 500 mg at 05/07/200833 metoprolol tartrate (LOPRE SSOR) tablet 25 mg 25 mg Per J Tube BID Sotero León MD 25 mg at 05/07/19 0937 metoprolol (LOPRESSOR) injection 5 mg 5 mg IntraVENous Q6H PRN Sotero León MD LORazepam (ATIVAN) injection 1 mg 1 mg IntraVENous QHS Roberto Burgos MD 1 mgat 05/06/19 2248 vits A and D-white pet-lanolin (A&D) ointment Topical PRN Krystian Monae MD vancomycin 50 mg/mL oral solution (compounded) 125 mg 125 mg Per G Tube G3RCstiirsJuan alejandro MD 125 mg at 05/07/19 0546 lamoTRIgine (LaMICtal) ta blet 100 mg 100 mg Per G Tube QPM Laura Mills MD 100 mg at 05/06/19 1716 lamoTRIgine (LaMICtal) tablet 50 mg 50 mg Per G Tube DAILY Laura Mills MD 50 mg at 05/07/19 0938 sodium chloride (NS) flush 5-40 mL 5-40 mL IntraVENous PRN Laura Mills MD pantoprazole (PROTONIX) 40 mg in 0.9% sodium chloride 10 mL injection 40 mgIntraVENous DAILY Kareen Mills MD 40 mg at 04/16 07/02 0939 acetaminophen (TYLENOL) tablet 650 mg 650 mg Oral Q6H PRN Rosy Mills MD 650 mg at 05/04/19 0515 ondansetron (ZOFRAN) injection 4 mg 4 m g IntraVENous Q6H PRN Kareen Mills MD albuterol-ipratropium (DUO-NEB) 2.5 MG- 0.5 MG/3 ML 3 mL Nebulization Q6HWA RTLakhtaria, Paryush P, MD 3 mL at 0831 acetylcysteine (MUCOMYST) 100 mg/mL (10 %) nebulizer solution 400 mg 4 mLInhalation TID RT Kareen Mills MD 400 mg at 05/07/19 0831 miconazole (MICOTIN) 2 % cream Topical BID Kareen Mills MD budesonide (PULMICORT) 50 0 mcg/2 ml nebulizer suspension 500 mcg NebulizationBID RT Kareen Mills MD 500 mcg at 05/07/19 0831 cinacalcet (SENSIPAR) tablet 60 mg 60 mg Oral KYLEIGH Y Kareen Mills MD60 mg at 05/07/19 0937 heparin (porcine) injection 5,000 Units 5,000 Units SubCUTAneous S39EYqzhfylmsKareen gonzales MD 5,000 Uni ts at 05/07/19 0546Physical Exam:Physical Exam:AlertS1 s2 tachyResp:decreased BSAb d: softExt: LUE edema +LE edema+Data Review:Recent Results (from the past 24 hour(s))MAGNESIUM Collection Time: 05/07/19 4:50 AMResult Value Ref Range Magnesium 2.9 (H) 1.6 - 2.6 mg/dLCBC WITH AUTOMATED DIFF Collection Time: 05/07/19 4:50 AMR esult Value Ref Range WBC 10.8 (H) 4.8 - 10.6 K/uL RBC 3.19 (L) 4.70 - 6.00 M/uL HGB 9 .7 (L) 14.0 - 18.0 g/dL HCT 32.1 (L) 42.0 - 52.0 % MCV 100.6 (H) 81.0 - 94.0 FL MCH 30.4 27.0 - 35.0 PG MCHC 30.2 (L) 30.7 - 37.3 g/dL RDW 17.9 (H) 11.5 - 14.0 % PLATELET 297 130 - 400 K/uL MPV 10.0 9.2 - 11.8 FL NRBC 0.0 0 PER 100 WBC ABSOLUTE NRBC 0.0 0 0.0 - 0.01 K/uL NEUTROPHILS 74 (H) 48.0 - 72.0 % LYMPHOCYTES 17 (L) 18.0 - 40.0 % MONOCYTES 7 2.0 - 12.0 % EOSINOPHILS 1 0.0 - 7.0 % BASOPHILS 0 0.0 - 3.0 % IMMATURE G RANULOCYTES 1 (H) 0 - 0.5 % ABS. NEUTROPHILS 8.0 (H) 2.3 - 7.6 K/UL ABS. LYMPHOCYTES 1.8 0.9 - 4.2 K/UL ABS. MONOCYTES 0.8 0.1 - 1.7 K/UL ABS. EOSINOPHILS 0.1 0.0 - 1.0 K/UL ABS. BASOPHILS 0.0 0.0 - 0.4 K/UL ABS. IMM. GRANS. 0.1 0.0 - 0.17 K/UL DF AUTOM ATEDMETABOLIC PANEL, COMPREHENSIVE Collection Time: 05/07/19 4:50 AMResult Value Ref Range Sodium 150 (H) 136 - 145 mmol/L Potassium 3.9 3.5 - 5.1 mmol/L Chloride 117 (H) 98 - 107 mmol/L CO2 32 21 - 32 mmol/L Anion gap 6 (L) 10 - 20 mmol/L Glucose 1 21 (H) 74 - 106 mg/dL BUN 45 (H) 7 - 18 mg/dL Creatinine 2.13 (H) 0.70 - 1.30 mg/dL GF R est AA 40 (L) >60 ml/min/1.73m2 GFR est non-AA 33 (L) >60 ml/min/1.73m2 Calcium 9.7 8.5 - 10.1 mg/dL Bilirubin, total 0.3 0.2 - 1.0 mg/dL ALT (SGPT) 14 13 - 61 U/L T (SGOT) 11 (L) 15 - 37 U/L Alk. phosphatase 86 45 - 117 U/L Protein, total 6.5 6.4 - 8.2 g/dL Albumin 2.2 (L) 3.5 - 4.7 g/dL Globulin 4.3 1.7 - 4.7 g/dL A-G Ratio 0. 5 (L) 0.7 - 2.8PHOSPHORUS Collection Time: 05/07/19 4:50 AMResult Value Ref Range Phosphorus 2.0 (L) 2.5 - 4.9 mg/dLImaging:No results found.Impression:Active Hospital Problems Diagnosis Date Noted Scrotal rash 04/21/2019 COPD with acute exacerbation (HCC) 04/19/2019 Acute on chronic respiratory failure with hypoxia and hyp ercapnia (HCC)04/19/2019 Acute hypoxemic respiratory failure ([facility]) 03/25/2019 Pn eumonia 11/08/2018 NOAH.improving slowly S/p trach Hypernatremia 149Plan:o ff LasixReplace Po4 free water 200ml every 4 hoursFollow up labsD/c planningHanna [facility] eim, MDJanuary 2019 Name Value Range Interpretation Code Description Data [facility] rce(s) Supporting Document(s ) ID Date Data Source [id number] 05/07/2019 07:37:35 AM [facility] Bedside and Verbal shift change report carol Conner RN (oncoming nurse) Vivienne Campbell RN (offgoing nurse). Report includ ed the following informationSBAR, Kardex, Intake/Output, MAR, Recent Results and C ardiac Rhythm NSR. Name Value Range Interpretation Code Description Data [facility] rce(s) Supporting Document(s ) ID Date Data Source [id number] 05/07/2019 07:04:05 AM [facility] Reviewed Ventilator Settings with onc oming RT Kraig Godwin, Settings, Weaning , Transports. Ventilator wiped d own with bleachwipes.Eliel Aggarwal, RT Name Value Range Interpretation Code Description Data [facility] rce(s) Supporting Document(s ) ID Date Data Source [id number] 05/07/2019 05:32:30 AM [facility] Name Value Range Interpretation Description Data Sup porting Code Source(s) Document(s ) Leukocytes 10.8 4.8-10.6 Above high normal [facility] - [#/volume] in K/uL Good Blood by Taoist Automated count [facility] Erythrocytes 3.19 4.70-6.0 Below low normal [facility] - [#/volume] in M/uL 0 Good Blood by [facility] Hemoglobin 9.7 g/dL 14.0-18. Below low normal [facility] - [Mass/volume] in 0 Good Blood [facility] Hematocrit 32.1 % 42.0-52. Below low normal [facility] - [Volume 0 Good Fraction] of Taoist Blood by Hospital Automated count Erythrocyte mean 100.6 FL 81.0-94. Above high normal [facility] - corpuscular 0 Good volume [Entitic Taoist volume] by Hospital Automated count Erythrocyte mean 30.4 PG 27.0-35. [facility] - corpuscular 0 Good hemoglobin Taoist [Entitic mass] Hospital by Automated count Erythrocyte mean 30.2 30.7-37. Below low normal [facility] - corpuscular g/dL 3 Good hemoglobin Taoist concentration [facility] [Mass/volume] by Automated count Erythrocyte 17.9 % 11.5-14. Above high normal [facility] - distribution 0 Good width [Ratio] by Tao[facility] Automated count Hospital Platelets 297 K/uL 130-400 [facility] - [#/volume] in [facility] Blood by Taoist Automated count Hospital Platelet mean 10.0 FL 9.2-11.8 [facility] - volume [Entitic Good volume] in Blood [facility] Automated Hospital count Nucleated 0.0 PER 0 [facility] - erythrocytes/100 100 WBC Good leukocytes Taoist [Ratio] in Blood [facility] Nucleated 0.00 0.0-0.01 [facility] - erythrocytes K/uL Good [#/volume] in [facility] Segmented 74 % 48.0-72. Above high normal [facility] - neutrophils/100 0 Good leukocytes in [facility] Lymphocytes/100 17 % 18.0-40. Below low normal [facility] - leukocytes in 0 [facility] Blood [facility] Monocytes/100 7 % 2.0-12.0 [facility] - leukocytes in [facility] Blood [facility] Eosinophils/100 1 % 0.0-7.0 [facility] - leukocytes in [facility] Blood [facility] Basophils/100 0 % 0.0-3.0 [facility] - leukocytes in [facility] Blood [facility] Immature 1 % 0-0.5 Above high normal [facility] - granulocytes/100 Good leukocytes in Taoist Blood by Hospital Automated count Segmented 8.0 K/UL 2.3-7.6 Above high normal [facility] - neutrophils Good [#/volume] in [facility] Lymphocytes 1.8 K/UL 0.9-4.2 [facility] - [#/volume] in Good Blood [facility] Monocytes 0.8 K/UL 0.1-1.7 [facility] - [#/volume] in [facility] Eosinophils 0.1 K/UL 0.0-1.0 [facility] - [#/volume] in [facility] Basophils 0.0 K/UL 0.0-0.4 [facility] - [#/volume] in [facility] Immature 0.1 K/UL 0.0-0.17 [facility] - granulocytes Good [#/volume] in Taoist Blood by Hospital Automated count Differential [facility] - cell count Good method [facility] ID Date Data Source [id number] 05/07/2019 05:28:19 AM EST [facility] - [facility] Name Value Range Interpretation Description Data Sup porting Code Source(s) Document(s ) Sodium 150 136-145 Above high [facility] - [Moles/volume] in mmol/L normal [facility] Serum or [facility] Potassium 3.9 3.5-5.1 [facility] - [Moles/volume] in mmol/L [facility] Serum or [facility] Chloride 117 98-107 Above high [facility] - [Moles/volume] in mmol/L normal [facility] or [facility] Carbon dioxide, 32 21-32 [facility] - total mmol/L [facility] [Moles/volume] in Taoist Serum or [facility] Anion gap in Serum 6 10-20 Below low normal [facility] - or Plasma mmol/L [facility] Glucose 121 74-106 Above high [facility] - [Mass/volume] in mg/dL normal [facility] Serum or Plasma [facility] Urea nitrogen 45 7-18 Above high [facility] - [Mass/volume] in mg/dL normal [facility] Serum or [facility] Creatinine 2.13 0.70-1. Above high [facility] - [Mass/volume] in mg/dL 30 normal [facility] Serum or [facility] Glomerular 40 >60 Below low normal [facility] - filtration ml/min/ Good rate/1.73 sq M 1.73m2 Taoist predicted among Hospital blacks [Volume Rate/Area] in Serum or Plasma by Creatinine-based formula (MDRD) Glomerular 33 >60 Below low normal [facility] - filtration ml/min/ Good rate/1.73 sq M 1.73m2 Taoist predicted among Hospital non-blacks [Volume Rate/Area] in Serum or Plasma by Creatinine-based formula (MDRD) Calcium 9.7 8.5-10. [facility] - [Mass/volume] in mg/dL 1 Good Serum or Plasma [facility] Bilirubin.total 0.3 0.2-1.0 [facility] - [Mass/volume] in mg/dL Good Serum or Plasma [facility] Alanine 14 U/L 13-61 [facility] - aminotransferase Good [Enzymatic Taoist activity/volume] in Hospital Serum or Plasma Aspartate 11 U/L 15-37 Below low normal [facility] - aminotransferase Good [Enzymatic Taoist activity/volume] in Hospital Serum or Plasma by With P-5'-P Alkaline 86 U/L 45-117 [facility] - phosphatase Good [Enzymatic Taoist activity/volume] in Hospital Serum or Plasma Protein 6.5 6.4-8.2 [facility] - [Mass/volume] in g/dL Good Serum or Plasma [facility] Albumin 2.2 3.5-4.7 Below low normal [facility] - [Mass/volume] in g/dL Good Serum or Plasma by Taoist Bromocresol [facility] (BCP) dye binding method Globulin 4.3 1.7-4.7 [facility] - [Mass/volume] in g/dL Good Serum by [facility] Albumin/Globulin 0.5 0.7-2.8 Below low normal [facility] - [Mass Ratio] in Good Serum or Plasma [facility] ID Date Data Source [id number] 05/07/2019 05:28:19 AM EST [facility] - [facility] Name Value Range Interpretation Description Data Sup porting Code Source(s) Document(s ) Phosphate 2.0 mg/dL 2.5-4.9 Below low normal [facility] - Good [Mass/volume] Taoist in Serum or Hospital Plasma ID Date Data Source [id number] 05/07/2019 05:28:19 AM EST [facility] - [facility] Name Value Range Interpretation Description Data Sup porting Code Source(s) Document(s ) Magnesium 2.9 mg/dL 1.6-2.6 Above high normal [facility] - Good [Mass/volume] Taoist in Serum or Hospital Plasma ID Date Data Source [id number] 05/06/2019 07:24:30 PM EST [facility] RENAL Progress Bella Carlin68 y .o.Admit Date: 04/19/2019Active Problems: Pneumonia (11/08/2018) Acute hypoxemic r espiratory failure (HCC) (03/25/2019) COPD with acute exacerbation (HCC) (04/19/2019) Acute on chronic respiratory failure with hypoxia and hypercapnia (HCC)(04/19/2019) Scrotal rash (04/21/2019)Subjective:s/p TrachnormootensiveTolerating feeding wel lPertinent items are noted in the History of Present Illness.Objective:Visit VitalsBP (!) 167/95 (BP 1 Location: Right arm, BP Patient Position: At rest)Pulse 86Temp 9 8.3 F (36.8 C)Resp 16Ht 5' 2" (1.575 m)Wt 54.7 kg (120 lb 8 oz)SpO2 98%BMI 22.04 k g/m Intake and Output:Date 05/05/19 1900 - 05/06/19 0659 05/06/19 0700 - 05/07/19 0 659Shift 8252-3842 24 Hour Total 0628-9468 7940-6239 24 Hour TotalINTAKEI.V.(mL/kg/ hr) 50 50 Volume (meropenem (MERREM) 500 mg in 0.9% sodium chloride (MBP/ADV) 50 mL MBP)50 50NG/GT 200 200 Water Flush Volume (mL) (G/J Tube) 200 200Shift Total(mL/kg ) 250(4.6) 250(4.6)OUTPUTUrine(mL/kg/hr) 150 Urine Occurrence(s) 1 x Urine Output (mL) ([REMOVED] Condom Catheter 05/02/19) 150Emesis/NG output 350 350 Output ( ml) (PEG/Gastrostomy Tube) 350 350Shift Total(mL/kg) 150(2.7) 350(6.4) 350(6.4 )NET 250 100 -350 -350Weight (kg) 54.7 54.7 54.7 54.7 54.7Medications Reviewed:Ashvin nt Facility-Administered MedicationsMedication Dose Route Frequen cy Provider Last Rate Last Dose [START ON 05/07/2019] predniSONE (DELTASONE) tablet 10 mg 10 mg Oral DAILYWITH BREAKFAST Krystian Monae MD meropenem (MERREM) 50 0 mg in 0.9% sodium chloride (MBP/ADV) 50 mL MBP 0.5 gIntraVENous Q12H Natasha Dudley MD 100 mL/hr at 05/06/19 1717 500 mg at 05/06/201617 metoprolol tartrate (LOPRE SSOR) tablet 25 mg 25 mg Per J Tube BID Sotero León MD 25 mg at 05/06/19 0953 metoprolol (LOPRESSOR) injection 5 mg 5 mg IntraVENous Q6H PRN Sotero León MD LORazepam (ATIVAN) injection 1 mg 1 mg IntraVENous QHS Roberto Burgos MD 1 mgat 05/05/19 2118 vits A and D-white pet-lanolin (A&D) ointment Topical PRN Krystian Monae MD vancomycin 50 mg/mL oral solution (compounded) 125 mg 125 mg Per G Tube [id number] alejandro MD 125 mg at 05/06/19 1721 lamoTRIgine (LaMICtal) ta blet 100 mg 100 mg Per G Tube QPM Laura Mills MD 100 mg at 05/06/19 1716 lamoTRIgine (LaMICtal) tablet 50 mg 50 mg Per G Tube DAILY Laura Mills MD 50 mg at 05/06/19 0953 sodium chloride (NS) flush 5-40 mL 5-40 mL IntraVENous PRN Laura Mills MD pantoprazole (PROTONIX) 40 mg in 0.9% sodium chloride 10 mL injection 40 mgIntraVENous DAILY Kareen Mills MD 40 mg at 04/16 06/04 0953 acetaminophen (TYLENOL) tablet 650 mg 650 mg Oral Q6H PRN Rosy Mills MD 650 mg at 05/04/19 0515 ondansetron (ZOFRAN) injection 4 mg 4 m g IntraVENous Q6H PRN Kareen Mills MD albuterol-ipratropium (DUO-NEB) 2.5 MG- 0.5 MG/3 ML 3 mL Nebulization Q6HWA RTLaKareen rodriguez MD 3 mL at 1413 acetylcysteine (MUCOMYST) 100 mg/mL (10 %) nebulizer solution 400 mg 4 mLInhalation TID RT Kareen Mills MD 400 mg at 05/06/19 1413 miconazole (MICOTIN) 2 % cream Topical BID Kareen Mills MD budesonide (PULMICORT) 50 0 mcg/2 ml nebulizer suspension 500 mcg NebulizationBID RT Kareen Mills MD 500 mcg at 05/06/19 0900 cinacalcet (SENSIPAR) tablet 60 mg 60 mg Oral KYLEIGH Y Kareen Mills MD60 mg at 05/06/19 0953 heparin (porcine) injection 5,000 Units 5,000 Units SubCUTAneous [id number] gonzales MD 5,000 Uni ts at 05/06/19 1716Physical Exam:Physical Exam:AlertS1 s2 tachyResp:decreased BSAb d: softExt: LUE edema +LE edema+Data Review:Recent Results (from the past 24 hour(s))MAGNESIUM Collection Time: 05/06/19 4:00 AMResult Value Ref Range Magnesium 2.8 (H) 1.6 - 2.6 mg/dLCBC WITH AUTOMATED DIFF Collection Time: 05/06/19 4:00 AMR esult Value Ref Range WBC 9.3 4.8 - 10.6 K/uL RBC 3.05 (L) 4.70 - 6.00 M/uL HGB 9.3 (L ) 14.0 - 18.0 g/dL HCT 30.6 (L) 42.0 - 52.0 % MCV 100.3 (H) 81.0 - 94.0 FL MCH 30.5 27 .0 - 35.0 PG MCHC 30.4 (L) 30.7 - 37.3 g/dL RDW 18.1 (H) 11.5 - 14.0 % PLATELET 356 130 - 400 K/uL MPV 10.0 9.2 - 11.8 FL NRBC 0.0 0 PER 100 WBC ABSOLUTE NRBC 0.00 0.0 - 0.01 K/uL NEUTROPHILS 69 48.0 - 72.0 % LYMPHOCYTES 22 18.0 - 40.0 % MONOCYTES 8 2.0 - 12.0 % EOSINOPHILS 1 0.0 - 7.0 % BASOPHILS 0 0.0 - 3.0 % IMMATURE GRANULO CYTES 0 0 - 0.5 % ABS. NEUTROPHILS 6.4 2.3 - 7.6 K/UL ABS. LYMPHOCYTES 2.1 0.9 - 4.2 K/UL ABS. MONOCYTES 0.7 0.1 - 1.7 K/UL ABS. EOSINOPHILS 0.1 0.0 - 1.0 K/UL ABS. BASO PHILS 0.0 0.0 - 0.4 K/UL ABS. IMM. GRANS. 0.0 0.0 - 0.17 K/UL DF AUTOMATEDMETABOLIC DAYANARA REYES, COMPREHENSIVE Collection Time: 05/06/19 4:00 AMResult Value Ref Range Sodium 149 (H) 136 - 145 mmol/L Potassium 3.8 3.5 - 5.1 mmol/L Chloride 114 (H) 98 - 107 mmol/L CO2 33 (H) 21 - 32 mmol/L Anion gap 6 (L) 10 - 20 mmol/L Glucose 94 74 - 106 mg/dL BU N 43 (H) 7 - 18 mg/dL Creatinine 1.93 (H) 0.70 - 1.30 mg/dL GFR est AA 45 (L) >60 ml/min/1.73m2 GFR est non-AA 37 (L) >60 ml/min/1.73m2 Calcium 9.7 8.5 - 10.1 mg/ dL Bilirubin, total 0.4 0.2 - 1.0 mg/dL ALT (SGPT) 16 13 - 61 U/L AST (SGOT) 15 15 - 37 U/L Alk. phosphatase 82 45 - 117 U/L Protein, total 6.6 6.4 - 8.2 g/dL Albumi n 2.3 (L) 3.5 - 4.7 g/dL Globulin 4.3 1.7 - 4.7 g/dL A-G Ratio 0.5 (L) 0.7 - 2.8Imag ing:No results found.Impression:Active Hospital Problems Diagnosis Date Noted Scrotal rash 04/21/2019 COPD with acute exacerbation (HCC) 04/19/2019 Acute on chronic respiratory failure with hypoxia and hypercapnia (HCC)04/19/2019 Acute hypox emic respiratory failure (HCC) 03/25/2019 Pneumonia 11/08/2018 NOAH.improving s lowly S/p trach Hypernatremia 149Plan:off LasixIncrease free water 20 0ml every 4 hoursFollow up labsD/c Kailey Frankel MDJanuary 2019 Name Value Range Interpretation Code Description Data [facility] rce(s) Supporting Document(s ) ID Date Data Source [id number] 05/06/2019 07:19:13 PM [facility] Bedside and Verbal shift change report g ellynen to Elizabeth Campbell RN (oncoming nurse)by Reny Galeas RN(offgoing nurse). Repor t given with SBAR, Kardex, Intake/Output, MAR and RecentResults. Name Value Range Interpretation Code Description [facility] ) ID Date Data Source [id number] 05/06/2019 04:40:07 PM [facility] Multiple phone calls made to Heraclio who f inally called back however now statingthat we need to discuss discharge with Yuliet who is the Guardian. She providedthe last 4 digits of the number and said to call Ru th. Called #[phone] andVM is full,unable to leave message. Several more attempts made and VM stillfull. Name Value Range Interpretation Code Description [facility] Supporting Document(s ) ID Date Data Source [id number] 05/06/2019 02:41:43 PM [facility] ID Progress Note05/06/2019Subjective:S/p tracheostomy and jejunostomy tube placement.No event overnightBlood cx rem ain negativeResp cx with pseudomonasOn vent support.Wbc wnlAfebrileObjective:Review of SystemsPatient is unable to provideVitals:Patient Vitals for the pas t 24 hrs: BP Temp Pulse Resp SpO2 Kapkew21/22/20 0952 - - 88 22 99 % -04/16 06/04 0738 155/70 98 F (36.7 C) 87 20 - -05/06/19 0540 - - 79 12 97 % -05/06/19 0355 155/86 97.4 F (36.3 C) 82 16 96 % -05/06/19 0226 - - - - - 54.7 kg (120 lb 8 oz)05/06/19 0159 - - 85 16 98 % -05/05/19 2349 154/84 98 F (36.7 C) 86 17 98 % - 05/05/192019 - - 88 17 98 % -05/05/192016 137/90 98.1 F (36.7 C) 90 20 97 % - 1945 - - - - 98 % -05/05/19 1728 - - 90 20 97 % -05/05/19 1509 144/84 98.3 F (3 6.8 C) 81 16 97 % -Tmax: Temp (24hrs), Av F (36.7 C), Min:97.4 F (36.3 C), Max:98.3 F(36.8 C)Physical Exam:General: Awake on vent no distress Eyes: Conjunctivae/corneas clear. PERRLNeck: Supple, symmetrical, trachea midline,+ t rachLungs: bilateral breath sounds with basal crackles..Heart: Regular rate and rhythm, S1, S2 normal, no murmurAbdomen: Soft, non-tender. Bowel sounds normal. N o masses, Noorganomegaly.peg+J tube+Back: No CVA tenderness.Extremities: No cyanos is ,chronic lymphedema .Pulses: 2+ and symmetric all extremities.Skin: Skin col or, texture, turgor normal. No rashes or lesionsLymph nodes: Cervical, supraclavi cular, and axillary nodes normal.Current Facility-Administered MedicationsMedicat ion Dose Route Frequency [START ON 05/07/2019] predniSONE (DELTASONE) tablet 10 mg 10 mg Oral DAILYWITH BREAKFAST meropenem (MERREM) 500 mg in 0.9% sodium chloride (MBP/ADV) 50 mL MBP 0.5 gIntraVENous Q12H metoprolol tartrate ( LOPRESSOR) tablet 25 mg 25 mg Per J Tube BID metoprolol (LOPRESSOR) injection 5 mg 5 mg IntraVENous Q6H PRN LORazepam (ATIVAN) injection 1 mg 1 mg IntraVENous QHS vi ts A and D-white pet-lanolin (A&D) ointment Topical PRN vancomycin 50 mg/mL oral so lution (compounded) 125 mg 125 mg Per G Tube Q6H lamoTRIgine (LaMICtal) tablet 100 m g 100 mg Per G Tube QPM lamoTRIgine (LaMICtal) tablet 50 mg 50 mg Per G Tub e DAILY sodium chloride (NS) flush 5-40 mL 5-40 mL IntraVENous PRN pantoprazole (P ROTONIX) 40 mg in 0.9% sodium chloride 10 mL injection 40 mgIntraVENous DAILY aceta minophen (TYLENOL) tablet 650 mg 650 mg Oral Q6H PRN ondansetron (ZOFRAN) injection 4 mg 4 mg IntraVENous Q6H PRN albuterol-ipratropium (DUO-NEB) 2.5 MG-0 .5 MG/3 ML 3 mL Nebulization Q6HWA RT acetylcysteine (MUCOMYST) 100 mg/mL (10 %) nebulizer solution 400 mg 4 mLInhalation TID RT miconazole (MICOTIN) 2 % cream Topical BID budesonide (PULMICORT) 500 mcg/2 ml nebulizer suspension 500 mcg N ebulizationBID RT cinacalcet (SENSIPAR) tablet 60 mg 60 mg Oral DAILY heparin (porcine) injection 5,000 Units 5,000 Units SubCUTAneous M83OZbho:Recent Labs 05/0605/04/200312WBC 9.3 8.8HGB 9.3* 8.7*PLT 356 452*BUN 43* 43*CREA 1.93* 2. 12*SGOT 15 9*AP 82 66TBILI 0.4 0.3Cultures:Lab ResultsComponent Value D ate/Time Culture result: MODERATE PSEUDOMONAS AERUGINOSA (A) 04/26/2019 05:00 PM Cultu re result: NO GROWTH 5 DAYS 04/25/2019 12:10 PM Culture result: NO GROWTH 5 DAYS 04/15 12:05 PMRadiology:No results found.Assessment: Staph sepsis. Aspira tion pneumonia (pseudomonas) Acute COPD exacerbation. Acute respiratory failure . Pleural effusion. Dysphagia Fever Plan:1. Continue meropenem x 4 more days 2. Continue oral vancomycin prophylaxis doseMaangeles Gomez MDJanuary 2019142 5 PM Name Value Range Interpretation Code Description Data [facility] rce(s) Supporting Document(s ) ID Date Data Source [id number] 05/06/2019 01:19:40 PM [facility] Care Management InterventionsPCP Verifie d by CM: YesMode of Transport at Discharge: ALSTransition of Care Consult (CM Consul t): Discharge PlanningMyChart Signup: NoDischarge Durable Medical Equipment: N oPhysical Therapy Consult: NoOccupational Therapy Consult: NoSpeech Therapy Consul t: NoCurrent Support Network: Nursing Facility([facility])The Patient and/ or Patient Engineering Group Manager was Provided with a Choice of Providerand Agrees with the Di scharbrian Plan?: YesFreedom of Choice List was Provided with Basic Dialogue that Suppor ts thePatient's Individualized Plan of Care/Goals, Treatment Preferences and Sh aresthe Quality Data Associated with the Providers?: YesVeteran Resource Informat ion Provided?: RefusedDischarge LocationDischarge Placement: Rehab Unit Subacute([facility] [employer] [facility] at 3:30 pm.RN is aware. Spoke with Chica in admissions at [facility] who is awareand agreeable. Facility is aware of transport time and is prepared for e pt. Power Brake Operator speaking with pt's family to make aware of discharge. Name Value Range Interpretation Code Description Data [facility] rce(s) Supporting Document(s ) ID Date Data Source [id number] 05/06/2019 01:11:45 PM [facility] Spoke with Chica in admissions at [facility], bed is available for pt todischarge to today. Facility is prepar ed to accept the pt. MAR faxed to Chica inadlalo as requested.[facility]30 pm.Spoke with MD Bustos who left message for Joyce and spoke wi th pt's sisterMichell in the presence of [facility]. Pt's sister Michell reports that sister Stefan dee ispt's guardian and HCP. Call placed to Yuliet at [phone] and message left.Wi ll request documentation of POA and guardianship. reports he will also be calling Yuliet and follow-up with Joyce and then call SCOTT back. Contactinformation for SCOTT provided to . Will follow. Addendum: Spoke with Chica at [facility] who is aware of transportarranged for 3:30 pm. RN to RN reports can be called into nursing office [phone]. Name Value Range Interpretation Code Description Data [facility] rce(s) Supporting Document(s ) ID Date Data Source [id number] 05/06/2019 12:47:30 PM [facility] Patient evaluated with NANCY Oglesby. A small 1 x 1 cm circular erythematous areaidentified on the left hip, non blan audi.Allevyn applied. Monitor for resolution. Please re consult if not res olving.Continue preventive and supportive care. Name Value Range Interpretation Code Description Data [facility](s) Supporting Document(s ) ID Date Data Source [id number] 05/06/2019 12:12:10 PM [facility] Progress NoteMID-[facility] ,[facility] Centerjose Monae MD., F.C.C.P.Stella Hamilton MD., F.C.C.P. [address] [facility] [address] [place] [id number] [place] [id number] [phone]: Evelio Carlin Sex: male DOA: 04/19/2019Dat e of : 1950 Age: 68 y.o. LOS: LOS: 17 daysSubjective:Mr. Gayla beltran is a 68 y.o. year old male who is being seen for VENTILATORSUPPORT , SEVERE COPD , PNEUMONIA . HE IS COMFORTABLE ON VENTILATOR.Objective:Vital Signs:Patient Vitals for the past 24 hrs: BP Temp Pulse Resp SpO2 Hyigyv13/22/20 0952 - - 88 22 99 % -05/06/19 0738 155/70 98 F (36.7 C) 87 20 - -05/06/19 0540 - - 79 12 97 % -04/16 06/04 0355 155/86 97.4 F (36.3 C) 82 16 96 % -05/06/19 0226 - - - - - 54.7 kg (120 lb 8 oz)05/06/19 0159 - - 85 16 98 % -05/05/19 2349 154/84 98 F (36.7 C) 86 17 98 % - 05/05/192019 - - 88 17 98 % -05/05/192016 137/90 98.1 F (36.7 C) 90 20 97 % - 1945 - - - - 98 % -05/05/19 1728 - - 90 20 97 % -05/05/19 1509 144/84 98.3 F (3 6.8 C) 81 16 97 % -05/05/19 1353 - - 97 14 97 % -Pulse OX:SpO2 Readings from Last 6 Encounters:05/06/19 99%04/16/19 100%04/06/19 99%03/17/19 92%02/19/19 96%02/18/19 92%@ LASTSAO2(6)@Physical Exam:ON VENTILATOR A/C = 12 / MT ON FIO2 = 35 % SPO2 = 9 6 % General: Alert,AWAKE, cooperative, no distress, appears stated age. Head: Normocephalic, without obvious abnormality, atraumatic. Eyes: Conjunctivae/corneas clear. PERRL, EOMs intact. No se: Nares normal. No drainage or sinus tenderness Throat: Lips, mucos a, and tongue normal Neck: Supple, symmetrical, trachea midline, no adenopathy,thyroid: no enlargement/tenderness/nodules, no carot id bruit and no JVD. Lungs: WHEEZING FURTHER LESS , RALES DECREAS ED , AIR EXCHANGEIS BETTER to auscultation bilaterally. Chest Wall: No tenderness or deformity. Heart: Regular rate and rhythm, S1, S2 normal , ES GR 1/ 6 murmur,click, rub or NO gallop. Abdomen: Soft, non-tender. Bowel sounds normal. No masses, No organomegaly. Extremities: Extremities normal, atraumatic, no cyanosis or edema. Pulses: 4+ bilaterally. Skin: Skin color, texture, turgor normal. No rashes or lesions. Neurologi c: CNII-XII intact. No focal motor or sensory deficit.Intake and Output:Last t hree shifts: 05/04 1900 - 05/06 0700In: 990 [I.V.:50]Out: 1150 [Urine:750]Lab Result s:Recent Results (from the past 24 hour(s))MAGNESIUM Collection Time: 05/06 4:00 AMResult Value Ref Range Magnesium 2.8 (H) 1.6 - 2.6 mg/dLCBC WITH AUTOMATE D DIFF Collection Time: 05/06/19 4:00 AMResult Value Ref Range WBC 9.3 4.8 - 1 0.6 K/uL RBC 3.05 (L) 4.70 - 6.00 M/uL HGB 9.3 (L) 14.0 - 18.0 g/dL HCT 30.6 (L) 42 .0 - 52.0 % MCV 100.3 (H) 81.0 - 94.0 FL MCH 30.5 27.0 - 35.0 PG MCHC 30.4 (L) 30.7 - 37.3 g/dL RDW 18.1 (H) 11.5 - 14.0 % PLATELET 356 130 - 400 K/uL MPV 10.0 9.2 - 11.8 FL NRBC 0.0 0 PER 100 WBC ABSOLUTE NRBC 0.00 0.0 - 0.01 K/uL NEUTROPHILS 69 48.0 - 72.0 % LYMPHOCYTES 22 18.0 - 40.0 % MONOCYTES 8 2.0 - 12.0 % EOSINOPHILS 1 0 .0 - 7.0 % BASOPHILS 0 0.0 - 3.0 % IMMATURE GRANULOCYTES 0 0 - 0.5 % ABS. NEUTROPHIL S 6.4 2.3 - 7.6 K/UL ABS. LYMPHOCYTES 2.1 0.9 - 4.2 K/UL ABS. MONOCYTES 0.7 0.1 - 1.7 K/UL ABS. EOSINOPHILS 0.1 0.0 - 1.0 K/UL ABS. BASOPHILS 0.0 0.0 - 0.4 K/UL ABS. IMM. G RANS. 0.0 0.0 - 0.17 K/UL DF AUTOMATEDMETABOLIC PANEL, COMPREHENSIVE Collection Time: 05/06/19 4:00 AMResult Value Ref Range Sodium 149 (H) 136 - 145 mmol/L Potassium 3.8 3.5 - 5.1 mmol/L Chloride 114 (H) 98 - 107 mmol/L CO2 33 (H) 21 - 32 mmol/L Anion gap 6 (L) 10 - 20 mmol/L Glucose 94 74 - 106 mg/dL BUN 43 (H) 7 - 18 mg/dL Creatinine 1.93 (H) 0.70 - 1.30 mg/dL GFR est AA 45 (L) >60 ml/min/ 1.73m2 GFR est non-AA 37 (L) >60 ml/min/1.73m2 Calcium 9.7 8.5 - 10.1 mg/ dL Bilirubin, total 0.4 0.2 - 1.0 mg/dL ALT (SGPT) 16 13 - 61 U/L AST (SGOT) 15 15 - 37 U/L Alk. phosphatase 82 45 - 117 U/L Protein, total 6.6 6.4 - 8.2 g/dL Albumi n 2.3 (L) 3.5 - 4.7 g/dL Globulin 4.3 1.7 - 4.7 g/dL A-G Ratio 0.5 (L) 0.7 - 2.8ABG: Recent Labs 05/05/201040 05/04/200449PH 7.53* 7.55*PCO2 41 41PO2 147* 84HCO3 34* 36*FIO2 40.0 40.0Recent Glucose Results:Lab ResultsComponent Value Date/Time GLU 94 05/06/2019 04:00 AM@[email or web address] Results Procedure Component Value Units Date/Time CULTURE, BLOOD [[id number]] Col lected: 04/25/19 1210 Order Status: Completed Specimen: Blood Updated: 1352 Special Requests: NO SPECIAL REQUESTS Culture result: NO GROWTH 5 DA YS CULTURE, BLOOD [[id number]] Collected: 04/25/19 1205 Order Status: Completed S pecimen: Blood Updated: 04/30/19 1352 Special Requests: NO SPECIAL REQUESTS C ulture result: NO GROWTH 5 DAYS CULTURE, RESPIRATORY/SPUTUM/BRONCH W GRAM STAIN [ [id number]] (Abnormal)(Susceptibility) Collected: 04/26/19 1700 Order Status: Completed Specimen: Sputum from Tracheal Aspirate Updated:04/29/19 1051 Special Requests: NO SPECIAL REQUESTS GRAM STAIN 10-25 WBC/lpf <10 EPI/lpf FEW GRAM P OSITIVE RODS Culture result: MODERATE PSEUDOMONAS AERUGINOSA C. DIFFICILE (DNA ) [[id number]] Collected: 04/27/19 0915 Order Status: Completed Specimen: Stool Upda mikel: 04/27/19 1246 C. difficile (DNA) NEGATIVE Comment: This specimen is nega tive for toxigenic C difficile by DNAamplification. Repeat testing is not recommended for confirmation, samplesreceived within 7 days of this ne gative result will be rejected. C. DIFFICILE (DNA) [[id number]] (Abnormal) Collected: 04/25/19 1715 Order Status: Completed Specimen: Stool Updated: 04/26/19 1551 C. difficile (DNA) TEST RESULT IS INCONCLUSIVE. PLEASE SUBMIT A NEW SPECIM EN FOR ANALYSIS. CULTURE, URINE [[id number]] Collected: 04/25/19 1147 Order Status: Completed Specimen: Urine from Clean catch Updated: Special Requests : NO SPECIAL REQUESTS Culture result: NO GROWTH 1 DAY C. DIFFICILE (DNA) [[id number]] Collected: 04/26/19 0930 Order Status: Canceled Specimen: Stool CULTURE, BLOOD [[id number]] Collected: 04/20/19 1440 Order Status: Completed Specimen: Blood Upda mikel: 04/26/19 0818 Special Requests: NO SPECIAL REQUESTS Culture result: NO HAIDER WTH 6 DAYS CULTURE, BLOOD [[id number]] Collected: 04/20/19 1447 Order Status: Completed Specimen: Blood Updated: 04/26/19 0818 Special Requests: NO SPEC IAL REQUESTS Culture result: NO GROWTH 6 DAYS CULTURE, BLOOD [[id number]] (Abnorm al) Collected: 04/19/19 1005 Order Status: Completed Specimen: Blood Updated: 12/02 0731 Special Requests: NO SPECIAL REQUESTS GRAM STAIN GRAM POSITIVE COCC I IN [employer]USTERS ANAEROBIC BOTTLE CALLED TO AND READ BACK BY ROB LEDEZMA,RN, ED, 0981 ON 04/20/19 TORISMIRAGLIA Culture result: STAPHYLOCOCCUS EPIDERMIDIS : Refer to p revious culture(s) for susceptibilityresults CULTURE, BLOOD [[id number]] (Abnormal) (Susceptibility) Collected: Order Status: Completed Specimen: Bloo d Updated: 04/22/19 0729 Special Requests: NO SPECIAL REQUESTS GRAM STAIN GRAM PO SITIVE COCCI IN CLUSTERS ANAEROBIC BOTTLE CALLED TO AND READ BACK BY ROB KNOX, RN, ED, AT 0953 ON 04/20/19 TORISMIRAGLIA Culture result: STAPHYLO COCCUS EPIDERMIDISImages:[email or web address] Chest Sngl VResult Date: 05/04/2019Histor y: Respiratory difficulty. FINDINGS: A frontal portable view of the chestis com pared to the prior study of the previous date. The tracheostomy tube andEKG leads are unchanged. The cardiac silhouette is normal in size. Evaluation ofthe lungs a nd mediastinal structures reveals continued minimal blunting of theleft costophrenic angle. There remains some density in the medial right lungbase. Mediastinal and h ilar structures are unremarkable. When differences inprojection and technique a re taken into account these findings may be similar.IMPRESSION: Findings similar to that seen previously.Xr Chest Sngl VResult Date: 05/03/2019History: Pneumonia. FINDI NGS: A frontal portable view of the chest is comparedto the prior study of the previo us date. The tracheostomy tube and EKG leads areagain seen. The cardiac silhouette is normal in size. Evaluation of the lungsand mediastinal structures is limited due to rotation. There remains opacity inthe medial right lung base as well as a right pleur al effusion. The left lung isunchanged. Mediastinal and hilar structures are poo rly evaluated.IMPRESSION: No change compared to the prior study.Xr Chest Sngl VResult Date: 05/02/2019Portable chest x-ray. PRIOR EXAM: X-ray 05/01/2019 HISTORY: Pneumonia FINDINGS:The heart is normal in size. The mediastinum and pulmonary vessels areunr emarkable. There is a left lower lobe infiltrate. Tracheostomy tube isgrossly unremarkable. There is a small right pleural effusion.. The bonystructures are intact .IMPRESSION: Left lower lobe infiltrate and small right pleural effusionunchanged si nce the prior exam. Study is limited due to patient positioning.Xr Chest Sngl VResul t Date: 05/01/2019AP portable film of the chest clinical indication pneumonia Stud y is compared toprevious examination of April 30, 2019. Again noted is an exte nsive left midlobe and lower lung infiltrate as well as a left pleural effusion. Also noted juancarlos right perihilar infiltrate.IMPRESSION: Bilateral infiltr ates and left pleural effusion ,Little change fromprior studyXr Chest Sngl VResult Pan e: 04/30/2019AP portable film of the chest clinical indication pleural effusion. St benja iscompared to previous examination April 29, 2019. Study demonstrates a l argeleft pleural effusion and again infiltrate in the left perihilar and inf rahilarregion. Smaller right pleural effusion is present. Prominence is noted in theri ght hilar region this may represent infiltrate or mass.IMPRESSION: 1. Bilate ral pleural effusions left greater than right. 2. Littlechange in extensive left hilar and infrahilar infiltrate. 3. Marked prominenceto right hilar region differen tial given aboveXr Chest Sngl VResult Date: 04/29/2019XR CHEST SNGL V CLINICAL INDICA TION PROVIDED:. "pneumonia / c h f / pl ,effusion." TECHNIQUE.: 1 views, chest. COMPARISON:. 04/28/2019. FINDINGS:. Thepatient has been extubated in the interval. The pericardial/cardiac silhouetteremains enlarged in the transverse dimension. Th ere is mild pulmonary vascularcongestion, not appreciably changed in the interval. The re is a small leftpleural effusion, similar in size to the previous study, with ángela cent densityin the left lower lung, which may represent atelectasis. There is nopneumo thorax. There is an abnormal right heart contour which may representatelectasis i n the right middle lobe. Follow-up radiographs are recommended.IMPRESSION:. Interval extubation. Mild congestive failure with small lefteffusion, not appreciably changed in the interval. Abnormal right pericardialcontour may represent atelect asis in the right middle lobe. Follow-upradiographs are recommended.Xr Chest Sngl VResult Date: 04/28/2019AP portable film of the chest clinical indication pn eumonia Study is compared toprevious examination of April 25, 2019. Again n oted is endotracheal tube insitu, the tip is above the tian. Extensive bibasal hazi ness is notedinfiltrate versus congestive change. Also noted is marked prominence topulmonary vasculature. Heart size is difficult to evaluate. There may be smal lbilateral pleural effusions.IMPRESSION: 1. Endotracheal tube in satisfactory positi on. 2. Extensive bibasalhaziness. 3. Prominence to pulmonary vascular marking s. 4. Possible bilateralsmall pleural effusionsXr Chest Sngl VResult Date: 04/15CHEST one view HISTORY: Pneumonia. COPD. COMPARISON: 04/23/2019. There is a p oorinspiratory effort which compromises this interpretation. The patient's chinalso o bscures the right upper lobe. A repeat study is suggested. There has beenno change o f small bilateral pleural effusions.There is no gross evidence ofcongestion, infiltra tasha, or a left pneumothorax.IMPRESSION: No significant change. Limited study. Poor inspiratory effort.Xr Abd (kub)Result Date: 04/28/2019Abdomen clinical indication odalis luate J-tube position. Study demonstrates aJ-tube projected over the upper abdomen . Without contrast material one cannot becertain exactly where the tube is. The re appears to be a mild ileus pattern.IMPRESSION: J-tube projected ove r upper abdomenXr Gastrograffin Upper GiResult Date: 04/29/2019History: J-tube placement. FINDINGS: A director of housing film of the abdomen reveals a tubeoverlying the abdo men. The bowel gas pattern is nonspecific in nature. Aftercontrast was injected throu gh the tube contrast appears to fill the jejunum.Therefore the tube appears to be in good position in the jejunum.IMPRESSION: Jejunostomy tube with its tip within the jejunum.Ct Chest Abd Pelv Wo ContResult Date: 04/20/2019Referring Physician: SHAYLEE HILLS Patient Name: EVELIO CARLIN FINAL REPORTFROM [facility] EXAM: C T chest without contrast and CT abdomen pelviswithout contrast DATE OF EXAM: 20:52:12 IMAGES: 681 HISTORY: reducedbreath sounds right lung, LLQ ten derness Comparison: 03/14/19 and 12/21/18FINDINGS: Axial images of the ches t, abdomen and pelvis are obtained without ivcontrast. Chest: Mediastinal assessmen t is limited without contrast. Imagequality limited by artifacts. Patchy lung opacit ies right greater than leftsimilar to prior. Small pleural effusions. Vascular includ ing coronarycalcifications. Mediastinum appears shifted to the right. Left hemid iaphragm iselevated. Abdomen and pelvis: Nonspecific bowel pattern, with post nena gicalchanges on the left. No definite free air. Organ assessment limited without iv contrast. No significant free fluid or free air. No bowel obstruction or abscessseen . Catheter and air in the bladder which is not well assessed. Left hiphardware part ially seen with old fracture deformity. G-J tube is present.Ventral hernia right of midline at abdominal wall with multiple small bowelloops without obstructive pattern. Mild right muscle swelling with possiblehematoma and calcification at ri ght groin image 117/120. Degenerative bonychanges. Multiple likely chronic com pression deformities at thoracic and lumbarspine. Bilateral L5-S1 spondylolys is and anterolisthesis.IMPRESSION: Right greater than left lung infiltrates and e ffusions. No bowelobstruction. 2 cm hyperdensity at a bowel loop in left pel vis image 90/120,possibly ingested material, or a tube fragment or post surgical charles ge. Ventralabdominal hernia seen. See above. One or more of the following dose reduct iontechniques were used: automated exposure control, adjustment of the mA and/or kVa ccording to patient size, use of iterative reconstructive technique. THISDOCUMENT H BEEN ELECTRONICALLY SIGNED Marcie Edge MD 04/20/2019 22:43 GINA Jenkins.Please call [facility] Consultant [phone]) with questions. This reportwas electronically signed by: Marcie Edge MD 04/20/2019 10:44 PMUs Retroperitoneum CompResult Date: 04/23/2019Retroperitoneal sonogram clinical indication acute kidney insufficiency S tudyis limited secondary to position of the patient and the patient'sinability t o cooperate. The abdominal aorta and inferior vena cava are obscured.The right kidney measures 9.2 cm. There is no evidence of hydronephrosis. Theleft kidney measures 9.5 cm. There is no evidence of hydronephrosis. Foleycatheter is seen wi thin the bladder.IMPRESSION: 1. Limited study. 2. No evidence of hydronephrosisX r Chest PortResult Date: 05/01/2019AP portable film of the chest clinical indication in sertion of tracheostomy tubeStudy is compared to previous exam performed earlier in t he day. Studydemonstrates a tracheostomy tube in situ. Again noted are bilateral pleur aleffusions. Infiltrate is present at the left base. There is no evidence ofpneumo thorax.IMPRESSION: 1. Tracheostomy tube in situ. 2. No evidence of pneumothorax. 3. Other findings as aboveXr Chest PortResult Date: 04/26/2019CHEST ONE VIEW HISTORY: I ntubation. COMPARISON: Previous studies. The patienthas been intubated. The endotrach eal tube tip is approximately 5.9 cms. abovethe tian. The left pleural effusi on has resolved. There has been no change ofa small right pleural effusion. No other s ignificant change is noted.IMPRESSION: Endotracheal tube tip approximately 5.9 cms. above the tian.Resolution of left pleural effusion.Xr Chest PortResult Pan e: 04/23/2019XR CHEST PORT CLINICAL INDICATION PROVIDED:. "Verification of PICC linepla cement." TECHNIQUE.: 2 AP views, chest. COMPARISON:. 04/19/2019. FINDINGS:. Thetip of the vascular catheter projects over the right axilla, likely a midlinecatheter p laced on 04/01/2019. The pericardial/cardiac silhouette is enlarged inthe transverse dimension. There is mild pulmonary vascular congestion andinterstitial edema. There is suggestion of small bilateral pleural effusions.Density in the lung bases may represent adjacent atelectasis or superimposedlower lung infiltrates. Foll ow-up radiographs are recommended.IMPRESSION:. 1. Midline cat heter projecting over the right axilla. 2. Mildcongestive failure with interstitial edema and small bilateral pleuraleffusions.Xr Chest PortResult Pan e: 04/19/2019History: Respiratory difficulty. FINDINGS: A frontal portable view of the chestis submitted for interpretation and is compared to the prior study of04/06/2019 . EKG leads overlie the chest. A right-sided midline catheter is notedin situ. The ca rdiac silhouette measures at the upper limits of normal. There ispatchy opacity noted at the lung bases, left greater than right, which may beinfiltrative or atelectatic in nature. A small left pleural effusion is noted.Mediastinal and hilar structures a re unremarkable.IMPRESSION: Basilar infiltrative change left greater than ri ght. Small leftpleural effusion.Duplex Lower Ext Venous LeftResult Date: 04/26/2019LEF T LOWER EXTREMITY DOPPLER History: Pain and swelling. High-resolution linearsonograp hy of the left lower extremity was performed using Color Doppler Flowand Duplex Doppl er spectral sonography. Findings: There is no evidence of deepvein thrombosis. The com mon femoral, visualized portions of the greatersaphenous, proximal, mid and dist al superficial femoral and popliteal veins werepatent. Spontaneous and phasic flow was noted. Normal compression and responseto augmentation was noted. The anterior tib ial vein and posterior tibial veinare not documented. The peroneal vein is patent. .IMPRESSION: No evidence of deep vein thrombosis. Suboptimal study.Duplex Uppe r Ext Venous LeftResult Date: 04/23/2019DUPLEX UPPER EXTREMITY-VENOUS LEFT HISTORY: Swe lling left upperextremity-evaluate for DVT PRIOR: Multiple: Most recent February 10, 2019: "Noevidence of deep vein thrombosis." TECHNICAL FACTORS: High resolution linea rgrayscale, color-flow and Doppler evaluation of the left upper extremity wasperformed from the neck to the antecubital fossa. FINDINGS: Normal antegradeflow, compress ibility of the deep venous vasculature, except for the internaljugular and subcl charbel veins due to their positions/anatomic location, as wellas augmentation of flow /phasicity is identified within the visualized portionsof the deep venous sy stem. No filling defects are identified that would besuspicious for, or representativ e of DVT.IMPRESSION: 1. No sonographic findings suggestive of thrombosis within thevisualized portions of the deep venous system of the left upper extremity.Duple x Upper Ext Venous RightResult Date: 04/26/2019RIGHT UPPER EXTREMITY DOPPLER H ISTORY: Pain and swelling. High-resolution linearsonography of the right upper extr emity was performed using Color Doppler Flowand Duplex Doppler Spectral sonograp hy. There is no evidence of a deep veinthrombosis. The cephalic vein could not be visualized. The right internaljugular, subclavian, axillary, brachial and basil ic veins are patent andcompletely compressible. Spontaneous and phasic jhon w is noted.IMPRESSION: No evidence of deep vein thrombosis. Suboptimal study.Medica tions:Current Facility-Administered MedicationsMedication Dose Route Frequen cy [START ON 05/07/2019] predniSONE (DELTASONE) tablet 10 mg 10 mg Oral GABRIELE LYWITH BREAKFAST meropenem (MERREM) 500 mg in 0.9% sodium chloride (MBP/ADV) 50 mL MBP 0.5 gIntraVENous Q12H metoprolol tartrate (LOPRESSOR) tablet 25 mg 25 mg Per J Tube BID metoprolol (LOPRESSOR) injection 5 mg 5 mg IntraVENous Q6H PRN LORazepam (ATIVAN) injection 1 mg 1 mg IntraVENous QHS vits A and D-white pet- lanolin (A&D) ointment Topical PRN vancomycin 50 mg/mL oral solution (compo unded) 125 mg 125 mg Per G Tube Q6H lamoTRIgine (LaMICtal) tablet 100 mg 10 0 mg Per G Tube QPM lamoTRIgine (LaMICtal) tablet 50 mg 50 mg Per G Tube DAILY so dium chloride (NS) flush 5-40 mL 5-40 mL IntraVENous PRN pantoprazole (PROTONIX) 40 mg in 0.9% sodium chloride 10 mL injection 40 mgIntraVENous DAILY aceta minophen (TYLENOL) tablet 650 mg 650 mg Oral Q6H PRN ondansetron (ZOFRAN) injection 4 mg 4 mg IntraVENous Q6H PRN albuterol-ipratropium (DUO-NEB) 2.5 MG-0 .5 MG/3 ML 3 mL Nebulization Q6HWA RT acetylcysteine (MUCOMYST) 100 mg/mL (10 %) nebulizer solution 400 mg 4 mLInhalation TID RT miconazole (MICOTIN) 2 % cream Topical BID budesonide (PULMICORT) 500 mcg/2 ml nebulizer suspension 500 mcg N ebulizationBID RT cinacalcet (SENSIPAR) tablet 60 mg 60 mg Oral DAILY heparin (porcine) injection 5,000 Units 5,000 Units SubCUTAneous [id number] Problems: Pneum onia (11/08/2018) Acute hypoxemic respiratory failure (HCC) (03/25/2019) COPD with ac manzanita exacerbation (HCC) (04/19/2019) Acute on chronic respiratory failure with hypoxia and hypercapnia (HCC)(04/19/2019) Scrotal rash (04/21/2019)Assessment:1 ACUTE H YPERCAPNIC AND HYPOXIC RESPIRATORY FAILURE DUE TO SEVERE COPD/ PNEUMONIA R ML , R L L IMPROVING 1. ATELECTASIS R L L , L L L RESOLVED2. PLEURAL EFFUSION ARE RESOLVING 3. RESPIRATORY ALKALOSIS PH = 7.534. SEVERE COPD 5. SEVERE METABOLI C ENCEPHALOPATHY IMPROVED POST TRACHEOSTOMY 05/01/20196. MUSCLE FATIGU E 7. SEVERE MENTAL RETARDATION8. SEIZURE VS TREMORS ON LAMICTAL SEEN BY DR SCHNEIDER 9. PNEUMONIA - G N R , PSEUDOMONAS [id number]. SEPSIS L A = 2.5 RESOL VING 11. BACTEREMIA G + COCCI - STAPH EPIDERMITIS 12. SEVERE MAL NUTRITION ,S/P J TUBE INSERTION 05/01/201913. ALB = 1.4 SEVERE HYPOALBUMINEMIA 14. MILD NOAH CR = 2.2 Plan: 1 CONTINUE VENTILATOR SUPPORT , DECRE ASE RATE = 10 / MT , DECREASE TV= 400 ML ,PEEP= 5 CM , FIO2 = 30 %1. DUO NEB Q 4 H2. MUCOMYST 10 % VIA MINI NEB Q 8 H3. D/ C LASIX RENAL FUNCTION DETERIORATIN G , CR = 2.24. DISCUSSED WITH RN ON BED SIDE 5 CONT MEROPENEM AND VANCOMY DOMINICK PER DR AHUMADA I D [address] MOTLEY7 PROSTAT FOR SEVERE HYPOALBUMINEMI 8 D/C , I V SOLUMEDROL FOR COPD , START PREDNISO NE 10 MG VIA P E GDAILY 9 MUCOMYST TO LOOSEN TRACHEOBRONCHIAL SECTERTIONS CHEST P T TO MOBILIZE SECRETIONS 8 CONT CHEST P T 9 MAY TRANSFER TO 3 N TELEMETRY 10. DISCUSSED WITH HIS SISTER MRS COLMENARES ON BED SIDE AGREE WIT H D/C PLANNING Krystian Monae MD F.C.C.P.May 06, 201912:06 PM Name Value Range Interpretation Code Description Data [facility](s) Supporting Document(s ) ID Date Data Source [id number] 05/06/2019 07:18:37 AM EST [facility] Bedside and Verbal shift change report g iven to Reny Galeas RN (oncoming nurse)by Elizabeth Campbell RN (offgoing nurse). Report included the following informationSBAR, Kardex, Intake/Output, MAR, Recent Resul ts and Cardiac Rhythm NSR. Name Value Range Interpretation Code Description Data [facility](s) Supporting Document(s ) ID Date Data Source [id number] 05/06/2019 07:08:30 AM EST [facility] Reviewed Ventilator Settings with onc oming RT Kraig Carson.Alarms, Settings, Weaning , Transports. Ventilator wiped d own with bleachwipes.Eliel Aggarwal, RT Name Value Range Interpretation Code Description Data [facility] r[facility](s) Supporting Document(s ) ID Date Data Source [id number] 05/06/2019 05:45:24 AM EST [facility] Name Value Range Interpretation Description Data Sup porting Code Source(s) Document(s ) Leukocytes 9.3 K/uL 4.8-10.6 [facility] - [#/volume] in [facility] Blood by [facility] Erythrocytes 3.05 4.70-6.0 Below low normal [facility] - [#/volume] in M/uL 0 [facility] Hemoglobin 9.3 g/dL 14.0-18. Below low normal [facility] - [Mass/volume] in 0 Good Blood [facility] Hematocrit 30.6 % 42.0-52. Below low normal [facility] - [Volume 0 Good Fraction] of [facility] Blood by Hospital Automated count Erythrocyte mean 100.3 FL 81.0-94. Above high normal [facility] - corpuscular 0 Good volume [Entitic [facility]ist volume] by Hospital Automated count Erythrocyte mean 30.5 PG 27.0-35. [facility] - corpuscular 0 Good hemoglobin Taoist [Entitic mass] [facility] by Automated count Erythrocyte mean 30.4 30.7-37. Below low normal [facility] - corpuscular g/dL 3 Good hemoglobin Taoist concentration [facility] [Mass/volume] by Automated count Erythrocyte 18.1 % 11.5-14. Above high normal [facility] - distribution 0 Good width [Ratio] by [facility] Platelets 356 K/uL 130-400 [facility] - [#/volume] in Good Blood by [facility] Automated count [facility] Platelet mean 10.0 FL 9.2-11.8 [facility] - volume [Entitic Good volume] in Blood [facility] by Automated Hospital count Nucleated 0.0 PER 0 [facility] - erythrocytes/100 100 WBC Good leukocytes [facility] [Ratio] in Blood Hospital Nucleated 0.00 0.0-0.01 [facility] - erythrocytes K/uL Good [#/volume] in [facility] Segmented 69 % 48.0-72. [facility] - neutrophils/100 0 Good leukocytes in [facility] Lymphocytes/100 22 % 18.0-40. [facility] - leukocytes in 0 [facility] Monocytes/100 8 % 2.0-12.0 [facility] - leukocytes in [facility] Eosinophils/100 1 % 0.0-7.0 [facility] - leukocytes in [facility] Basophils/100 0 % 0.0-3.0 [facility] - leukocytes in [facility] Immature 0 % 0-0.5 [facility] - granulocytes/100 Good leukocytes in [facility] by Hospital Automated count Segmented 6.4 K/UL 2.3-7.6 [facility] - neutrophils Good [#/volume] in [facility] Lymphocytes 2.1 K/UL 0.9-4.2 [facility] - [#/volume] in [facility] Monocytes 0.7 K/UL 0.1-1.7 [facility] - [#/volume] in [facility] Eosinophils 0.1 K/UL 0.0-1.0 [facility] - [#/volume] in [facility] Basophils 0.0 K/UL 0.0-0.4 [facility] - [#/volume] in [facility] Immature 0.0 K/UL 0.0-0.17 [facility] - granulocytes Good [#/volume] in [facility] by Hospital Automated count Differential [facility] - cell count Good method [facility] ID Date Data Source [id number] 05/06/2019 05:39:41 AM EST [facility] Name Value Range Interpretation Description Data Sup porting Code Source(s) Document(s ) Sodium 149 136-145 Above high normal [facility] - Good [Moles/volume] mmol/L [facility] in Serum or Hospital Plasma Potassium 3.8 3.5-5.1 [facility] - Good [Moles/volume] mmol/L [facility] in Serum or Hospital Plasma Chloride 114 98-107 Above high normal [facility] - Good [Moles/volume] mmol/L [facility] in Serum or Hospital Plasma Carbon 33 21-32 Above high normal [facility] - Good dioxide, total mmol/L [facility] [Moles/volume] Hospital in Serum or Plasma Anion gap in 6 mmol/L 10-20 Below low normal [facility] - Go od Serum or [facility] Plasma Hospital Glucose 94 mg/dL 74-106 [facility] - Good [Mass/volume] [facility] in Serum or Hospital Plasma Urea nitrogen 43 mg/dL 7-18 Above high normal [facility] - Good [Mass/volume] [facility] in Serum or Hospital Plasma Creatinine 1.93 0.70-1.3 Above high normal [facility] - Goo d [Mass/volume] mg/dL 0 [facility] in Serum or Hospital Plasma Glomerular 45 >60 Below low normal [facility] - Good filtration ml/min/1 [facility] rate/1.73 sq M .73m2 Hospital predicted among blacks [Volume Rate/Area] in Serum or Plasma by Creatinine-bas ed formula (MDRD) Glomerular 37 >60 Below low normal [facility] - Good filtration ml/min/1 Tao[facility] rate/1.73 sq M .73m2 Hospital predicted among non-blacks [Volume Rate/Area] in Serum or Plasma by Creatinine-bas ed formula (MDRD) (NOTE)Estimated GFR is calculated using the Modification of Diet in RenalDisease (MDRD) Study equation, reported for both Americans(GFRAA) and non- Americans (GFRNA), and normalized to 1.7 7p4blvx surface area. The physician must decide which value applies tothe patient . The MDRD study equation should only be used inindividuals age 18 or older. It has no t been validated for thefollowing: women, patients with serious comorbid co nditions,or on certain medications, or persons with extremes of body size,muscl e mass, or nutritional status. Calcium [Mass/volume] in 9.7 mg/dL 8.5-10.1 [facility] - Good Serum or Plasma [facility] H[facility] ital Bilirubin.total 0.4 mg/dL 0.2-1.0 [facility] - Good [Mass/volume] in Serum or [facility] Plasma Alanine aminotransferase 16 U/L 13-61 [facility] - Good [Enzymatic activity/volume] [facility] in Serum or Plasma Aspartate aminotransferase 15 U/L 15-37 [facility] - Good [Enzymatic activity/volume] [facility] in Serum or Plasma by With P-5'-P Alkaline phosphatase 82 U/L 45-117 [facility] - G ood [Enzymatic activity/volume] [facility] in Serum or Plasma Protein [Mass/volume] in 6.6 g/dL 6.4-8.[address] [facility] Serum or Plasma [facility] ital Albumin [Mass/volume] in 2.3 g/dL 3.5-4.7 Below low normal [facility] - Good Serum or Plasma by [facility] ospital Bromocresol purple (BCP) dye binding method Globulin [Mass/volume] in 4.3 g/dL 1.7-4.7 [facility] S Good Serum by calculation [facility] Albumin/Globulin [Mass 0.5 0.7-2.8 Below low normal [facility] Good Ratio] in Serum or Plasma [facility] ID Date Data Source [id number] 05/06/2019 05:39:41 AM EST [facility] Name Value Range Interpretation Description Data Sup porting Code Source(s) Document(s ) Magnesium 2.8 mg/dL 1.6-2.6 Above high normal [facility] [Mass/volume] [facility] in Serum or [facility] Plasma ID Date Data Source [id number] 05/05/2019 11:56:12 PM EST [facility] Problem: Falls - Risk ofGoal: *Absence o f FallsDescriptionDocument Samra Fall Risk and appropriate interventions in the jhon wsheet.Outcome: Progressing Towards GoalNote: Fall Risk Interventions:Mentation Interv entions: Adequate sleep, hydration, pain control, Door open whenpatient unattende d, Evaluate medications/consider consulting pharmacy, Morefrequent rounding, Reorien t patient, Toileting roundsMedication Interventions: Bed/chair exit alarm, Odalis luate medications/considerconsulting pharmacyElimination Interventions: Bed/c hair exit alarm, Call light in reach, Toiletingschedule/hourly roundsProblem: Patient Education: Go to Patient Education ActivityGoal: Patient/Family EducationOu tcome: Progressing Towards GoalProblem: Non-Violent RestraintsGoal: *Removal fro m restraints as soon as assessed to be safeOutcome: Progressing Towards GoalGoa l: *No harm/injury to patient while restraints in useOutcome: Progressing To wards GoalGoal: *Patient's dignity will be maintainedOutcome: Progressing Towards G oal Name Value Range Interpretation Code Description Data Harriett rce(s) Supporting Document(s ) ID Date Data Source [id number] 05/05/2019 07:33:33 PM [facility] Pt is in bed calm not pulling any tubes restraints not initiated at this time Name Value Range Interpretation Code Description Data [facility] rce(s) Supporting Document(s ) ID Date Data Source [id number] 05/05/2019 07:13:10 PM [facility] Verbal shift change report given to jackie lopez (oncoming nurse) by shawna (offgoing nurse). Report included the fo llowing information SBAR andKardex. Name Value Range Interpretation Code Description Data [facility] Supporting Document[facility]s ) ID Date Data Source [id number] 05/05/2019 03:05:09 PM [facility] NUTRITION FOLLOW UPRECOMMENDATI ON:Suggest Osmolite 1.5 at goal rate of 55 mL/hr with 100 mL free water flush q 3hr if no IVFASSESSMENT:Subjective: Pt s/p tracheostomy and surgical J-tube placeme nt. EN infusing atgoal rate per order.Nutrition Rx: Osmolite 1.5 at 45 m L/hr, ProStat TID, free water 100 mL q 6 hrActive OrdersThere are no active order s of the following types: Diet.Nutritionally Pertinent Labs: 05/04 Na 147 Glu 156 BUN 43 Creat 2.12 GFR 33Nutritionally Significant Meds: Merrem, Protonix, Solu-Medrol (d/c )Weight:Last 3 Recorded Weights in this Encounter 05/03/19 0400 05/04/19 0600 0603Weight: 54.2 kg (119 lb 7.8 oz) 54.9 kg (121 lb 0.5 oz) 55.1 kg (121 lb 8 oz)(down 3 kg from initial ed-scale wt; net I/O (-) 7781 mL)GI: +J-tube; last BM 04/16 0, looseSkin: Per WOCN: Scrotal rash/excoriation POA; re-consulted for r edness upperback and small skin tear posterior lateral L hip2+ genital, LUE ( hand), LLE, RLE, 1+ RUE edemaBraden score 13% Meals consumed: NPO, ENNo data found.Flu id Intake:Intake/Output Summary (Last 24 hours) at 05/05/2019 1430Last data filed at 05/05/2019 0609Gross per 24 hourIntake 740 mlOutput 1900 mlNet -1160 mlNUTRITION DI AGNOSIS: remains the same (Increased protein and energy needs) r/thigh risk skin del kdownINTERVENTION:Recalculated Nutrition Rx (no longer critically ill): 1385-9177 melisa al; 68-82gprotein (1.25-1.5g/kg); 8082-1357 ml fluid (1ml/kcal)[based on: 30-35 Kcal /kg]Suggest Osmolite 1.5 at goal rate of 55 mL/hr (1980 kcal, 83 gm pro, 269 gm CHO, 65 gm fat, 1006 mL water) and 100 mL free water flush q 3 hr if no IVFGOALS:Pt remberto ts 80% nutrient needs within 3-7 daysMONITOR/EVALUATE:Follow EN/PN RxSkin integrityDISCHARGE PLAN:EN as recommended at [facility] R Favorito, RD Name Value Range Interpretation Code Description Data Harriett rce(s) Supporting Document(s ) ID Date Data Source [id number] 05/05/2019 03:04:41 PM EST [facility] Problem: Nutrition DeficitGoal: *Optimiz e nutritional statusDescriptionPt meeting 80% nutrient needs within 3-7 daysOutcome: P rogressing Towards GoalSuggest Osmolite 1.5 at goal rate of 55 mL/hr (1980 kcal, 83 gm pro, 269 gm CHO,65 gm fat, 1006 mL water) and 100 mL free water flush q 3 hr if no IVF Name Value Range Interpretation Code Description Data Harriett rce(s) Supporting Document(s ) ID Date Data Source [id number] 05/05/2019 02:21:49 PM [facility] Pt no longer being discharged today. Spo ke with Chica at [facility] andmade aware. Will follow. Name Value Range Interpretation Code Description Data [facility] rce(s) Supporting Document(s ) ID Date Data Source [id number] 05/05/2019 01:52:32 PM [facility] Pt discharged by primary to SNF, family refused discharge, administration atbedside with family, call out to md discharge on hold, pt clinical conditionunchanged Name Value Range Interpretation Code Description Data [facility] rce(s) Supporting Document(s ) ID Date Data Source [id number] 05/05/2019 01:45:33 PM [facility] Possible discharge today. Call placed to [facility] [phone] andannesabrian left for analytical sciences director requeste d admissions decision forpossible discharge today. Clinical update fax to .Clinical update also faxed to admissions at [facility] [phone]. Call please to admissions at [phone] and spoke with Francine who reports no bed available for today but sammyll check on financial clearance and will call [facility] back. [place] arranged for 6 pm transp ort pending acceptance.Addendum: transport changed to [address] [facility].Ad dendum: Received call from Eve in admissions at [facility], Pt denied. Name Value Range Interpretation Code Description Data [facility] Supporting Document(s ) ID Date Data Source [id number] 05/05/2019 01:44:48 PM [facility] Care Management InterventionsPCP Verifie d by CM: YesMode of Transport at Discharge: ALSTransition of Care Consult (CM Consul t): Discharge PlanningMyChart Signup: NoDischarge Durable Medical Equipment: N oPhysical Therapy Consult: NoOccupational Therapy Consult: NoSpeech Therapy Consul t: NoCurrent Support Network: Nursing Facility([facility])The Patient and/ or Patient Engineering Group Manager was Provided with a Choice of Providerand Agrees with the Candy mckeon Plan?: YesFreedom of Choice List was Provided with Basic Dialogue that Suppor ts thePatient's Individualized Plan of Care/Goals, Treatment Preferences and Sh aresthe Quality Data Associated with the Providers?: YesVeteran Resource Informat ion Provided?: RefusedDischarge LocationDischarge Placement: Rehab Unit Subacute([facility])CARIN Power Brake Operator spoke with Chica at [facility], p t is accepted. [facility] arranged for 1 pm transport. Call placed to pt's HCP [place] nolan who was madeaware of discharge, acceptance to [facility] and arr anged ambulancetransport time. Joyce is aware and agreeable to discharge plan. R N is aware.Spoke with Chica in admissions at [facility], pt is accepted, ashu cason isaware of transport time and is prepared to accept the pt.[facility] [address] [address]Kjmlrqor: CARIN Power Brake Operator and CM Director spoke with Montanajarrodjamison who is aware andagreeable to discharge. Name Value Range Interpretation Code Description Data [facility] Supporting Document(s ) ID Date Data Source [id number] 05/05/2019 01:26:20 PM [facility] Pt is alert calm no signs or symptoms of pain or discomfort o2 sats have esib38-05% on current ventilator settings Name Value Range Interpretation Code Description Data [facility](s) Supporting Document(s ) ID Date Data Source [id number] 05/05/2019 12:18:22 PM [facility] Progress NoteMID-[facility].Krystian Monae MD., F.C.C.P.Stella Hamilton MD., F.C.C.P. [address] [place] [address] [place] [address] Patient: Telly grimm Sex: male DOA: 04/19/2019Date of : 1950 Age: 68 y.o. LOS: LOS: 16 daysSubjective:Mr. Carlin is a 68 y.o . year old male who is being seen for ACUTE RESPIRATORYFAILURE . PSEUDOMONAS PNEUM ONIA . SEVERE COPD , MUSCLE FATIGUE , PATIENT DID NOT TOLERATE WEANING ABG SHOE PH =7.53 STILL HAVE RESPIRATORY ALKALOSISObjective:Vital Signs:Patient V itals for the past 24 hrs: BP Temp Pulse Resp SpO2 Kvzozb31/21/20 1123 136/82 - 84 20 97 % -05/05/19 0930 - - 83 20 97 % -05/05/19 0928 - - - - 97 % -05/05/19 0731 140/70 97 F (36.1 C) 98 18 98 % -05/05/19 0603 - - - - - 55.1 kg (121 lb 8 oz)05/05/19 0446 144/74 97.3 F (36.3 C) 100 18 100 % -05/05/19 0245 - - 94 18 96 % -05/04/19 2341 122/77 98.3 F (36.8 C) 98 18 97 % -05/04/19 2046 - - 93 17 96 % -05/04/19 1917 120/69 98 F (36.7 C) 94 19 95 % -05/04/19 1735 - - 69 26 99 % -05/04/19 1513 119/84 98.8 F (37.1 C) 94 18 93 % -05/04/19 1350 - - 68 15 97 % -05/04/19 1339 - - - - 97 % -05/04/19 1335 - - 67 15 97 % -05/04/19 1302 150/84 97.8 F (36.6 C ) 72 16 97 % -Pulse OX:SpO2 Readings from Last 6 Encounters:05/05/19 97%04/16/19 1 00%04/06/19 99%03/17/19 92%02/19/19 96%02/18/19 92%@LASTSAO2(6)@Ventilator S ettings:Ventilator Mode: PRVCRespiratory RateBack-Up Rate: 15Insp Time (sec): 1 s ecI:E Ratio: 1:3Ventilator VolumesVt Set (ml): 400 mlVt Exhaled (Machine Breath) (ml): 461 mlVt Spont (ml): 375 mlVe Observed (l/min): 6.8 l/minVentilator PressuresPr essure Support (cm H2O): 10 cm H2OPIP Observed (cm H2O): 16 cm H2OMAP (cm H2O) : 10PEEP/VENT (cm H2O): 5 cm X91Fyvl PEEP Observed (cm H2O): 2.3 cm B7GRmmy Rate T idal Volume Pressure FiO2 PEEPPRVC 400 ml 10 cm H2O 40 % 5 cm A13Vizj airway press ure: 16 cm N6RIefofh ventilation: 6.8 l/minARDS network Guidelines: Lung prote ctive strategy and Pl pressure goals 16 CMless than or equal to 30Physical Exam: STLL ION A/C MODE MONTSERRAT RESPIRATOR , MORE ALERT AND AWAKE .NONVERBAL Genera l: Alert, cooperative, no distress, appears stated age. Head: Normoceph alic, without obvious abnormality, atraumatic. Eyes: Conjuncti vae/corneas clear. PERRL, EOMs intact. Nose: Nares normal. No drainage or sinus tenderness Throat: Lips, mucosa, and tongue normal Nec k: Supple, symmetrical, trachea midline, no adenopathy,thyroid: no enlargem ent/tenderness/nodules, no carotid bruit and no JVD. Lungs: RALES + R L L AND L L L , MILD basal Dullness toauscultation bilaterally. Chest Wall: No tenderness or deformity. Heart: Regular rate and rhythm, S1, S2 normal, no murmur, click,rub or gallop. Abdomen: Soft, non-tender. Bowel soun ds normal. No masses, No organomegaly. Extremities: Extremities CONTRACTED , atraumatic, no cyanosis or edema. Pulses: 4+ bilaterally. Sk in: Skin color, texture, turgor normal. No rashes or lesions. Neurologic: CNII-X II intact. No focal motor or sensory deficit.Intake and Output:Last three patricio fts: 05/03 1901 - 05/05 0700In: 1480Out: 2650 [Urine:1850]Lab Results:Recent Resu lts (from the past 24 hour(s))MAGNESIUM Collection Time: 05/05/19 4:13 AMResult Value Ref Range Magnesium 2.7 (H) 1.6 - 2.6 mg/dLBLOOD GAS, ARTERIAL Collection Time : 05/05/19 11:40 AMResult Value Ref Range pH 7.53 (H) 7.35 - 7.45 PCO2 41 32 - 48 mmH g PO2 147 (H) 83 - 108 mmHg CO2, TOTAL 36 (H) 19 - 24 mmol/L BICARBONATE 34 (H) 21 - 2 8 mmol/L O2 SAT 99 (H) 94 - 98 % BASE EXCESS 10.5 (H) 0 - 3 mmol/L SITE RIGHT RADIAL MIRANDA'S TEST POSITIVE FIO2 40.0 % MODE Pressure regulated volume control PEEP/C PAP 5 Tidal volume 400 RATE 12 Performed by [id number]:Recent Labs 05/0405/03/200456PH 7.53* 7.55* 7.54*PCO2 41 41 41PO2 147* 84 56*HCO3 34* 36* 35*F IO2 40.0 40.0 40.0Recent Glucose Results: No results found for: GLU, GLUPOC, GLUCPOC@ LABAPCYTOINTERPRETATION@CULTURESAll Micro Results Procedure Component Value Units Date/Time CULTURE, BLOOD [[id number]] Collected: 04/25/19 1210 Order Status: Completed Specimen: Blood Updated: 04/30/19 1352 Special Requests: NO SPEC IAL REQUESTS Culture result: NO GROWTH 5 DAYS CULTURE, BLOOD [[id number]] Collecte d: 04/25/19 1205 Order Status: Completed Specimen: Blood Updated: 04/30/19 1352 Special Requests: NO SPECIAL REQUESTS Culture result: NO GROWTH 5 DAYS CULTURE , RESPIRATORY/SPUTUM/BRONCH W GRAM STAIN [[id number]] (Abnormal)(Susceptibility) Collected: 04/26/19 1700 Order Status: Completed Specimen: Sputum from Trachea l Aspirate Updated:04/29/19 1051 Special Requests: NO SPECIAL REQUESTS GRAM STAI N 10-25 WBC/lpf <10 EPI/lpf FEW GRAM POSITIVE RODS Culture result: MODERATE PSEUDOMONAS AERUGINOSA C. DIFFICILE (DNA) [[id number]] Collected: 04/27/19 0915 Or bassem Status: Completed Specimen: Stool Updated: 04/27/19 1246 C. difficile (D NA) NEGATIVE Comment: This specimen is negative for toxigenic C difficile by DN Aamplification. Repeat testing is not recommended for confirmation, samplesrec eived within 7 days of this negative result will be rejected. C. DIFFICILE (DNA) [[id number]] (Abnormal) Collected: 04/25/19 1715 Order Status: Completed Specimen: Stool Updated: 04/26/19 1551 C. difficile (DNA) TEST RESULT IS INCONCLUSIVE. DANIEL GRAHAM SUBMIT A NEW SPECIMEN FOR ANALYSIS. CULTURE, URINE [[id number]] Collected: 0 04/25/19 1147 Order Status: Completed Specimen: Urine from Clean catch Update d: Special Requests: NO SPECIAL REQUESTS Culture result: NO HAIDER WTH 1 DAY C. DIFFICILE (DNA) [[id number]] Collected: 04/26/19 0930 Order Status: Canceled Specimen: Stool CULTURE, BLOOD [[id number]] Collected: 04/20/19 1440 Or bassem Status: Completed Specimen: Blood Updated: 04/26/19 08 Special Request s: NO SPECIAL REQUESTS Culture result: NO GROWTH 6 DAYS CULTURE, BLOOD [[id number]] Collected: 04/20/19 1447 Order Status: Completed Specimen: Blood Updated: 04/03 Special Requests: NO SPECIAL REQUESTS Culture result: NO GROWTH 6 DA YS CULTURE, BLOOD [[id number]] (Abnormal) Collected: 04/19/19 1005 Order Status: Completed Specimen: Blood Updated: 04/22/19 0731 Special Requests: NO SPEC IAL REQUESTS GRAM STAIN GRAM POSITIVE COCCI IN CLUSTERS ANAEROBIC BOTTLE CALLED TO AND READ BACK BY ROB LEDEZMA RN, ED, 0953 ON 04/20/19 TORISMIRAGLIA Culture re sult: STAPHYLOCOCCUS EPIDERMIDIS : Refer to previous culture(s) for susceptibilityre sults CULTURE, BLOOD [[id number]] (Abnormal) (Susceptibility) Collected: 04/19/20091 5 Order Status: Completed Specimen: Blood Updated: 04/22/19 0729 Special Request s: NO SPECIAL REQUESTS GRAM STAIN GRAM POSITIVE COCCI IN CLUSTERS ANAEROBIC BOT TLE CALLED TO AND READ BACK BY ROB LEDEZMA RN, ED, AT 0953 ON 04/20/19 TO RISMIRAGLIA Culture result: STAPHYLOCOCCUS EPIDERMIDISImages:@[email or web address]@Xr Chest Sngl VResult Date: 05/04/2019History: Respiratory difficulty. FINDINGS: A fron krystian portable view of the chestis compared to the prior study of the previous date. Th e tracheostomy tube andEKG leads are unchanged. The cardiac silhouette is nor mal in size. Evaluation ofthe lungs and mediastinal structures reveals continued minimal blunting of theleft costophrenic angle. There remains some density in the medial right lungbase. Mediastinal and hilar structures are unremarkable. When differ ences inprojection and technique are taken into account these findings may be simil ar.IMPRESSION: Findings similar to that seen previously.Xr Chest Sngl VResult Date: History: Pneumonia. FINDINGS: A frontal portable view of the chest is co mparedto the prior study of the previous date. The tracheostomy tube and EKG lead s areagain seen. The cardiac silhouette is normal in size. Evaluation of the lungsa nd mediastinal structures is limited due to rotation. There remains opacity inthe me dial right lung base as well as a right pleural effusion. The left lung isunchan ged. Mediastinal and hilar structures are poorly evaluated.IMPRESSION: No change c ompared to the prior study.Xr Chest Sngl VResult Date: 05/02/2019Portable chest x- ray. PRIOR EXAM: X-ray 05/01/2019 HISTORY: Pneumonia FINDINGS:The heart is normal i n size. The mediastinum and pulmonary vessels areunremarkable. There is a left lower l obe infiltrate. Tracheostomy tube isgrossly unremarkable. There is a small right ple ural effusion.. The bonystructures are intact.IMPRESSION: Left lower lobe infil trate and small right pleural effusionunchanged since the prior exam. Study is limited due to patient positioning.Xr Chest Sngl VResult Date: 05/01/2019AP portable film of the chest clinical indication pneumonia Study is c ompared toprevious examination of April 30, 2019. Again noted is an extensive left m idlobe and lower lung infiltrate as well as a left pleural effusion. Also noted juancarlos ri ght perihilar infiltrate.IMPRESSION: Bilateral infiltrates and left pleural e ffusion ,Little change fromprior studyXr Chest Sngl VResult Date: 04/30/2019AP por table film of the chest clinical indication pleural effusion. Study iscompared to pr evious examination April 29, 2019. Study demonstrates a largeleft pleural effusio n and again infiltrate in the left perihilar and infrahilarregion. Smaller right pleu ral effusion is present. Prominence is noted in theright hilar region this may repres ent infiltrate or mass.IMPRESSION: 1. Bilateral pleural effusions left greater than right. 2. Littlechange in extensive left hilar and infrahilar infiltrate. 3. Marked prominenceto right hilar region differential given aboveXr Chest Sngl VR esult Date: 04/29/2019XR CHEST SNGL V CLINICAL INDICATION PROVIDED:. "pneumonia / c h f / pl ,effusion." TECHNIQUE.: 1 views, chest. COMPARISON:. 04/28/2019. FINDINGS: . Thepatient has been extubated in the interval. The pericardial/cardiac silhou etteremains enlarged in the transverse dimension. There is mild pulmonary vascu larcongestion, not appreciably changed in the interval. There is a small leftpleural e ffusion, similar in size to the previous study, with adjacent densityin the left lower lung, which may represent atelectasis. There is nopneumothorax. There is an abn ormal right heart contour which may representatelectasis in the right middle lobe. Follow-up radiographs are recommended.IMPRESSION:. Interval extuba tion. Mild congestive failure with small lefteffusion, not appreciably changed in the interval. Abnormal right pericardialcontour may represent atelect asis in the right middle lobe. Follow-upradiographs are recommended.Xr Chest Sngl VResult Date: 04/28/2019AP portable film of the chest clinical indication pn eumonia Study is compared toprevious examination of April 25, 2019. Again n oted is endotracheal tube insitu, the tip is above the tian. Extensive bibasal hazi ness is notedinfiltrate versus congestive change. Also noted is marked prominence topulmonary vasculature. Heart size is difficult to evaluate. There may be smal lbilateral pleural effusions.IMPRESSION: 1. Endotracheal tube in satisfactory positi on. 2. Extensive bibasalhaziness. 3. Prominence to pulmonary vascular marking s. 4. Possible bilateralsmall pleural effusionsXr Chest Sngl VResult Date: 04/15CHEST one view HISTORY: Pneumonia. COPD. COMPARISON: 04/23/2019. There is a p oorinspiratory effort which compromises this interpretation. The patient's chinalso o bscures the right upper lobe. A repeat study is suggested. There has beenno change o f small bilateral pleural effusions.There is no gross evidence ofcongestion, infiltra tasha, or a left pneumothorax.IMPRESSION: No significant change. Limited study. Poor inspiratory effort.Xr Abd (kub)Result Date: 04/28/2019Abdomen clinical indication odalis luate J-tube position. Study demonstrates aJ-tube projected over the upper abdomen . Without contrast material one cannot becertain exactly where the tube is. The re appears to be a mild ileus pattern.IMPRESSION: J-tube projected ove r upper abdomenXr Gastrograffin Upper GiResult Date: 04/29/2019History: J-tube placement. FINDINGS: A director of housing film of the abdomen reveals a tubeoverlying the abdo men. The bowel gas pattern is nonspecific in nature. Aftercontrast was injected throu gh the tube contrast appears to fill the jejunum.Therefore the tube appears to be in good position in the jejunum.IMPRESSION: Jejunostomy tube with its tip within the jejunum.Ct Chest Abd Pelv Wo ContResult Date: 04/20/2019Referring Physician: SHAYLEE HILLS Patient Name: EVELIO CARLIN FINAL REPORTFROM [facility] EXAM: C T chest without contrast and CT abdomen pelviswithout contrast DATE OF EXAM: 20:52:12 IMAGES: 681 HISTORY: reducedbreath sounds right lung, LLQ ten derness Comparison: 03/14/19 and 12/21/18FINDINGS: Axial images of the ches t, abdomen and pelvis are obtained without ivcontrast. Chest: Mediastinal assessmen t is limited without contrast. Imagequality limited by artifacts. Patchy lung opacit ies right greater than leftsimilar to prior. Small pleural effusions. Vascular includ ing coronarycalcifications. Mediastinum appears shifted to the right. Left hemid iaphragm iselevated. Abdomen and pelvis: Nonspecific bowel pattern, with post nena gicalchanges on the left. No definite free air. Organ assessment limited without iv contrast. No significant free fluid or free air. No bowel obstruction or abscessseen . Catheter and air in the bladder which is not well assessed. Left hiphardware part ially seen with old fracture deformity. G-J tube is present.Ventral hernia right of midline at abdominal wall with multiple small bowelloops without obstructive pattern. Mild right muscle swelling with possiblehematoma and calcification at [facility] groin image 117/120. Degenerative bonychanges. Multiple likely chronic com pression deformities at thoracic and lumbarspine. Bilateral L5-S1 spondylolys is and anterolisthesis.IMPRESSION: Right greater than left lung infiltrates and e ffusions. No bowelobstruction. 2 cm hyperdensity at a bowel loop in left pel vis image 90/120,possibly ingested material, or a tube fragment or post surgical charles ge. Ventralabdominal hernia seen. See above. One or more of the following dose reduct iontechniques were used: automated exposure control, adjustment of the mA and/or kVa ccording to patient size, use of iterative reconstructive technique. THISDOCUMENT H BEEN ELECTRONICALLY SIGNED Marcie Edge MD 04/20/2019 22:43 GINA Jenkins.Please call Katja berger Wireless Consultant [phone] ([phone]) with questions. This reportwas electronically signed by: Marcie Edge MD 04/20/2019 10:44 PMUs Retroperitoneum CompResult Date: 04/23/2019Retroperitoneal sonogram clinical indication acute kidney insufficiency S tudyis limited secondary to position of the patient and the patient'sinability t o cooperate. The abdominal aorta and inferior vena cava are obscured.The right kidney measures 9.2 cm. There is no evidence of hydronephrosis. Theleft kidney measures 9.5 cm. There is no evidence of hydronephrosis. Foleycatheter is seen wi thin the bladder.IMPRESSION: 1. Limited study. 2. No evidence of hydronephrosisX r Chest PortResult Date: 05/01/2019AP portable film of the chest clinical indication in sertion of tracheostomy tubeStudy is compared to previous exam performed earlier in . Studydemonstrates a tracheostomy tube in situ. Again noted are bilateral pleur aleffusions. Infiltrate is present at the left base. There is no evidence ofpneumo thorax.IMPRESSION: 1. Tracheostomy tube in situ. 2. No evidence of pneumothorax. 3. Other findings as aboveXr Chest PortResult Date: 04/26/2019CHEST ONE VIEW HISTORY: I ntubation. COMPARISON: Previous studies. The patienthas been intubated. The endotrach eal tube tip is approximately 5.9 cms. abovethe tian. The left pleural effusi on has resolved. There has been no change ofa small right pleural effusion. No other s ignificant change is noted.IMPRESSION: Endotracheal tube tip approximately 5.9 cms. above the tian.Resolution of left pleural effusion.Xr Chest PortResult Pan e: 04/23/2019XR CHEST PORT CLINICAL INDICATION PROVIDED:. "Verification of PICC linepla cement." TECHNIQUE.: 2 AP views, chest. COMPARISON:. 04/19/2019. FINDINGS:. Thetip of the vascular catheter projects over the right axilla, likely a midlinecatheter p laced on 04/01/2019. The pericardial/cardiac silhouette is enlarged inthe transverse dimension. There is mild pulmonary vascular congestion andinterstitial edema. There is suggestion of small bilateral pleural effusions.Density in the lung bases may represent adjacent atelectasis or superimposedlower lung infiltrates. Foll ow-up radiographs are recommended.IMPRESSION:. 1. Midline cat heter projecting over the right axilla. 2. Mildcongestive failure with interstitial edema and small bilateral pleuraleffusions.Xr Chest PortResult Pan e: 04/19/2019History: Respiratory difficulty. FINDINGS: A frontal portable view of the chestis submitted for interpretation and is compared to the prior study of04/06/2019 . EKG leads overlie the chest. A right-sided midline catheter is notedin situ. The ca rdiac silhouette measures at the upper limits of normal. There ispatchy opacity noted at the lung bases, left greater than right, which may beinfiltrative or atelectatic in nature. A small left pleural effusion is noted.Mediastinal and hilar structures a re unremarkable.IMPRESSION: Basilar infiltrative change left greater than ri ght. Small leftpleural effusion.Xr Chest PortResult Date: 04/06/2019CHEST one vie w HISTORY: Pneumonia. COMPARISON: 03/25/2019. There is a poorinspiratory effort which compromises this interpretation. A repeat study issuggested. There is discoid atel ectasis and/or subsegmental left lower lobeatelectasis along the left hemidiaph ragm. .There is no gross evidence ofcongestion, effusions or pneumothorax. IMPRESSION: Possible left lower lobe atelectasis. Poor inspiratory effort.Dup krissy Lower Ext Venous LeftResult Date: 04/26/2019LEFT LOWER EXTREMITY DOPPLER Hi story: Pain and swelling. High-resolution linearsonography of the left lower extre mity was performed using Color Doppler Flowand Duplex Doppler spectral sonograp hy. Findings: There is no evidence of deepvein thrombosis. The common femoral, visualized portions of the greatersaphenous, proximal, mid and distal superficial fem oral and popliteal veins werepatent. Spontaneous and phasic flow was noted. N ormal compression and responseto augmentation was noted. The anterior tibial vein and posterior tibial veinare not documented. The peroneal vein is patent. .IMPRESSION: No evidence of deep vein thrombosis. Suboptimal study.Duplex Upper Ext Venous LeftResult Date: 04/23/2019DUPLEX UPPER EXTREMITY-VENOUS LEFT HISTORY: Swelling left upperextremi ty-evaluate for DVT PRIOR: Multiple: Most recent February 10, 2019: "Noevidenc e of deep vein thrombosis." TECHNICAL FACTORS: High resolution lineargrayscale , color-flow and Doppler evaluation of the left upper extremity wasperformed from t he neck to the antecubital fossa. FINDINGS: Normal antegradeflow, compressibility of the deep venous vasculature, except for the internaljugular and subclavian veins due to their positions/anatomic location, as wellas augmentation of flow/phasicity is identified within the visualized portionsof the deep venous system. No filling defec ts are identified that would besuspicious for, or lead customer service representative of DVT.IMPRESSION : 1. No sonographic findings suggestive of thrombosis within thevisualized portions of the deep venous system of the left upper extremity.Duplex Upper Ext Venous RightR esult Date: 04/26/2019RIGHT UPPER EXTREMITY DOPPLER HISTORY: Pain and swelling. High -resolution linearsonography of the right upper extremity was performed using Berthoud r Doppler Flowand Duplex Doppler Spectral sonography. There is no evidence of a de ep veinthrombosis. The cephalic vein could not be visualized. The right internaljug ular, subclavian, axillary, brachial and basilic veins are patent andcompletely c ompressible. Spontaneous and phasic flow is noted.IMPRESSION: No evidence of deep ve in thrombosis. Suboptimal study.Medications:Current Facility-Admin istered MedicationsMedication Dose Route Frequency meropenem (MERREM) 500 mg in 0.9% sodium chloride (MBP/ADV) 50 mL MBP 0.5 gIntraVENous Q12H metoprolol tartrate ( LOPRESSOR) tablet 25 mg 25 mg Per J Tube BID metoprolol (LOPRESSOR) injection 5 mg 5 mg IntraVENous Q6H PRN LORazepam (ATIVAN) injection 1 mg 1 mg IntraVENous QHS vi ts A and D-white pet-lanolin (A&D) ointment Topical PRN methylPREDNISolone (PF) (SO ELHAM-MEDROL) injection 40 mg 40 mg IntraVENous Q12H vancomycin 50 mg/mL oral solution (compounded) 125 mg 125 mg Per G Tube Q6H lamoTRIgine (LaMICtal) tablet 100 mg 10 0 mg Per G Tube QPM lamoTRIgine (LaMICtal) tablet 50 mg 50 mg Per G Tube DAILY so dium chloride (NS) flush 5-40 mL 5-40 mL IntraVENous PRN pantoprazole (PROTONIX) 40 mg in 0.9% sodium chloride 10 mL injection 40 mgIntraVENous DAILY aceta minophen (TYLENOL) tablet 650 mg 650 mg Oral Q6H PRN ondansetron (ZOFRAN) injection 4 mg 4 mg IntraVENous Q6H PRN albuterol-ipratropium (DUO-NEB) 2.5 MG-0 .5 MG/3 ML 3 mL Nebulization Q6HWA RT acetylcysteine (MUCOMYST) 100 mg/mL (10 %) nebulizer solution 400 mg 4 mLInhalation TID RT miconazole (MICOTIN) 2 % cream Topical BID budesonide (PULMICORT) 500 mcg/2 ml nebulizer suspension 500 mcg N ebulizationBID RT cinacalcet (SENSIPAR) tablet 60 mg 60 mg Oral DAILY heparin (porcine) injection 5,000 Units 5,000 Units SubCUTAneous [id number] Problems: Pneum onia (11/08/2018) Acute hypoxemic respiratory failure (HCC) (03/25/2019) COPD with ac manzanita exacerbation (HCC) (04/19/2019) Acute on chronic respiratory failure with hypoxia and hypercapnia (HCC)(04/19/2019) Scrotal rash (04/21/2019)Assessment:1 ACUTE H YPERCAPNIC AND HYPOXIC RESPIRATORY FAILURE DUE TO SEVERE COPD/ PNEUMONIA R ML , R L L IMPROVING 1. ATELECTASIS R L L , L L L RESOLVED2. PLEURAL EFFUSION ARE RESOLVING 3. RESPIRATORY ALKALOSIS PH = 7.534. SEVERE COPD 5. SEVERE METABOLI C ENCEPHALOPATHY IMPROVED POST TRACHEOSTOMY 05/01/20196. MUSCLE FATIGU E 7. SEVERE MENTAL RETARDATION8. SEIZURE VS TREMORS ON LAMICTAL SEEN BY DR SCHNEIDER 9. PNEUMONIA - G N R , PSEUDOMONAS [id number]. SEPSIS L A = 2.5 RESOL VING 11. BACTEREMIA G + COCCI - STAPH EPIDERMITIS 12. SEVERE MAL NUTRITION ,S/P J TUBE INSERTION 05/01/201913. ALB = 1.4 SEVERE HYPOALBUMINEMIA 14. MILD NOAH CR = 2.2 Plan: 1 CONTINUE VENTILATOR SUPPORT , DECRE ASE RATE = 10 / MT , DECREASE TV= 400 ML ,PEEP= 5 CM , FIO2 = 30 %1. DUO NEB Q 4 H2. MUCOMYST 10 % VIA MINI NEB Q 8 H3. D/ C LASIX RENAL FUNCTION DETERIORATIN G , CR = 2.24. DISCUSSED WITH RN ON BED SIDE 5 CONT MEROPENEM AND VANCOMY DOMINICK PER DR AHUMADA I D [address] MOTLEY7 PROSTAT FOR SEVERE HYPOALBUMINEMI 8 D/C , I V SOLUMEDROL FOR COPD 9 MUCOMYS T TO LOOSEN TRACHEOBRONCHIAL SECTERTIONS CHEST P T TO MOBILIZE SECRETIONS 8 CONT CHEST P T 9 MAY TRANSFER TO 3 N TELEMETRY 10. DISCUSSED WITH HIS SIS TER MRS COLMENARES ON BED SIDE Krystian Monae MD F.C.C.P.May 05, 201912:09 PM Name Value Range Interpretation Code Description Data Harriett rce(s) Supporting Document(s ) ID Date Data Source [id number] 05/05/2019 12:46:06 PM EST [facility] Name Value Range Interpretation Description Data Sup porting Code Source(s) Document(s ) pH of Arterial 7.53 7.35-7.4 Above high normal [facility] - [facility] blood [address] [place] [address] Carbon dioxide 41 mmHg 32-48 [facility] - [facility] [Partial Taoist pressure] in Hospital Arterial blood Oxygen 147 mmHg 83-108 Above high normal [facility] - [facility] [Partial [facility] pressure] in Hospital Arterial blood Carbon 36 19-24 Above high normal [facility] - Good dioxide, total mmol/L Taoist [Moles/volume] Hospital in Arterial blood Bicarbonate 34 21-28 Above high normal [facility] - Go od [Moles/volume] mmol/L [facility] in Arterial Hospital blood Oxygen 99 % 94-98 Above high normal [facility] - Good saturation in Taoist Blood [facility] Base excess in 10.5 0-3 Above high normal [facility] - Good Arterial blood mmol/L [facility] by calculation Hospital Base deficit 0-2 [facility] - Good in Arterial [facility] Body site [facility] Arterial [facility] - Good patency Wrist Taoist artery --pre Hospital arterial puncture Oxygen/Inspire 40.0 % [facility] - Good d gas [facility] system --on ventilator Ventilation [facility] - Good mode Taoist [Identifier] [facility] Ventilator PEEP 5 [facility] - Good Respiratory [facility] Tidal volume 400 [facility] - Good setting [facility] Respiratory 12 [facility] - Good rate [facility] Service 16484 [facility] - Good comment [facility] ID Date Data Source [id number] 05/05/2019 11:42:54 AM EST [facility] - G ood [facility] Name Value Range Interpretation Description Data Sup porting Code Source(s) Document(s ) pH of Arterial 7.53 7.35-7.4 Above high normal [facility] - Good blood [address] [place] [address] Carbon dioxide 41 mmHg 32-48 [facility] - [facility] [Partial [facility] pressure] in Hospital Arterial blood Oxygen 147 mmHg 83-108 Above high normal [facility] - Good [Partial [facility] pressure] in Hospital Arterial blood Carbon 36 19-24 Above high normal [facility] - Good dioxide, total mmol/L Taoist [Moles/volume] [facility] in Arterial blood Bicarbonate 34 21-28 Above high normal [facility] - Go od [Moles/volume] mmol/L [facility] in Arterial Hospital blood Oxygen 99 % 94-98 Above high normal [facility] - Good saturation in Taoist Blood [facility] Base excess in 10.5 0-3 Above high normal [facility] - Good Arterial blood mmol/L Taoist by calculation Hospital Body site [facility] - Good [facility] Arterial [facility] - Good patency Wrist Taoist artery --pre Hospital arterial puncture Oxygen/Inspire 40.0 % [facility] - Good d gas [facility] system --on ventilator Ventilation [facility] - Good mode Taoist [Identifier] [facility] Ventilator PEEP 5 [facility] - Good Respiratory [facility] Tidal volume 400 [facility] - Good setting [facility] Respiratory 12 [facility] - Good rate [facility] Service [address] [facility] - [facility] comment [facility] ID Date Data Source [id number] 05/05/2019 10:43:29 AM EST [facility] ID Progress Note05/05/2019Subjective:S/p tracheostomy and jejunostomy tube placement.No event overnightBlood cx rem ain negativeResp cx with pseudomonasOn vent support.Wbc wnlAfebrileObjective:Review of SystemsPatient is unable to provideVitals:Patient Vitals for the pas t 24 hrs: BP Temp Pulse Resp SpO2 Sjfbfl70/21/20 0930 - - 83 20 97 % -04/16 05/04 0928 - - - - 97 % -05/05/19 0731 140/70 97 F (36.1 C) 98 18 98 % -05/05/19 060 3 - - - - - 55.1 kg (121 lb 8 oz)05/05/19 0446 144/74 97.3 F (36.3 C) 100 18 100 % -05/05/19 0245 - - 94 18 96 % -05/04/19 2341 122/77 98.3 F (36.8 C) 98 18 97 % -05/04/19 2046 - - 93 17 96 % -05/04/19 1917 120/69 98 F (36.7 C) 94 19 95 % -05/04 1735 - - 69 26 99 % -05/04/19 1513 119/84 98.8 F (37.1 C) 94 18 93 % -05/04/19 1 350 - - 68 15 97 % -05/04/19 1339 - - - - 97 % -05/04/19 1335 - - 67 15 97 % - 0 1302 150/84 97.8 F (36.6 C) 72 16 97 % -05/04/19 1100 - - 74 15 - -Tmax: Temp (24hrs), Av.9 F (36.6 C), Min:97 F (36.1 C), Max:98.8 F(37.1 C)Physical Exam:General: Awake on vent no distressEyes: Conjunctivae/corneas clear. PERRLNeck: Supple, symmetrical, trachea midline,+ trachLungs: bilateral breath sounds w ith basal crackles..Heart: Regular rate and rhythm, S1, S2 normal, no murmurAbdomen: Soft, non-tender. Bowel sounds normal. No masses, Noorganomegaly.peg+J tube+Back: No CVA tenderness.Extremities: No cyanosis ,chronic lymphedema .Pulses: 2+ and symm etric all extremities.Skin: Skin color, texture, turgor normal. No rashes or les ionsLymph nodes: Cervical, supraclavicular, and axillary nodes normal.Current Facili ty-Administered MedicationsMedication Dose Route Frequency meropenem (MERREM) 500 mg in 0.9% sodium chloride (MBP/ADV) 50 mL MBP 0.5 gIntraVENous Q12H metoprolol t artrate (LOPRESSOR) tablet 25 mg 25 mg Per J Tube BID metoprolol (LOPRESSOR) injecti on 5 mg 5 mg IntraVENous Q6H PRN LORazepam (ATIVAN) injection 1 mg 1 mg IntraVENou s QHS vits A and D-white pet-lanolin (A&D) ointment Topical PRN methylPREDNISolo ne (PF) (SOLU-MEDROL) injection 40 mg 40 mg IntraVENous Q12H vancomycin 50 mg/mL or al solution (compounded) 125 mg 125 mg Per G Tube Q6H lamoTRIgine (LaMICtal) tablet 100 mg 100 mg Per G Tube QPM lamoTRIgine (LaMICtal) tablet 50 mg 50 mg Per G Tub e DAILY sodium chloride (NS) flush 5-40 mL 5-40 mL IntraVENous PRN pantoprazole (P ROTONIX) 40 mg in 0.9% sodium chloride 10 mL injection 40 mgIntraVENous DAILY aceta minophen (TYLENOL) tablet 650 mg 650 mg Oral Q6H PRN ondansetron (ZOFRAN) injection 4 mg 4 mg IntraVENous Q6H PRN albuterol-ipratropium (DUO-NEB) 2.5 MG-0 .5 MG/3 ML 3 mL Nebulization Q6HWA RT acetylcysteine (MUCOMYST) 100 mg/mL (10 %) nebulizer solution 400 mg 4 mLInhalation TID RT miconazole (MICOTIN) 2 % cream Topical BID budesonide (PULMICORT) 500 mcg/2 ml nebulizer suspension 500 mcg N ebulizationBID RT cinacalcet (SENSIPAR) tablet 60 mg 60 mg Oral DAILY heparin (porcine) injection 5,000 Units 5,000 Units SubCUTAneous [id number]:Recent Labs 05/0405/03/200315WBC 8.8 10.3HGB 8.7* 9.1*PLT 452* 523*BUN 43* 42*CREA 2.12* 1 .99*SGOT 9* 16AP 66 64TBILI 0.3 0.6Cultures:Lab ResultsComponent Value D ate/Time Culture result: MODERATE PSEUDOMONAS AERUGINOSA (A) 04/26/2019 05:00 PM Cultu re result: NO GROWTH 5 DAYS 04/25/2019 12:10 PM Culture result: NO GROWTH 5 DAYS 04/15 12:05 PMRadiology:No results found.Assessment: Staph sepsis. Aspira tion pneumonia (pseudomonas) Acute COPD exacerbation. Acute respiratory failure . Pleural effusion. Dysphagia Fever Plan:1. Continue meropenem2. 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 male with significant PMhx of Dysphagia, recurrent aspiration pneumonia, s/p g/t placement on 11/17/18 and conversion to PEJ on02/07/19, hyperlipidemia, hyperparathyroid unspecified, seizure, large hiatalhernia , anxiety disorder, personal history of pulmonary embolus, COPD, GERD,SChizophre freddy unspecified, Kyphosis, Parkinson disease, Severe intellectualdisabilities, contrac tures, and generalized muscle weakness.He was admitted for acute hypoxemic respiratory failure. He is s/p tracestomyand in progress of weaning tolerating T- tube, NOAH.Admit Date: 04/19/2019Active Problems: Pneumonia (11/08/2018) Acute hypoxemic respiratory failure (HCC) (03/25/2019) COPD with acute exacerbation (HCC) (04/19/2019) Acute on chronic respiratory failure with hypoxia and hypercapnia (HCC)(04/19/2019) Scrotal torsten h (04/21/2019)Subjective:Patient none..Pertinent items are noted in the H istory of Present Illness.Alert on ventObjective:Visit VitalsBP 140/70 (BP 1 Location: Right arm, BP Patient Position: At rest)Pulse 83Temp 97 F (36.1 C)Resp 20Ht 5' 2" (1.575 m)Wt 55.1 kg (121 lb 8 oz)SpO2 97%BMI 22.22 kg/m No Known Aller giesCurrent Facility-Administered MedicationsMedication Dose Route Frequen cy meropenem (MERREM) 500 mg in 0.9% sodium chloride (MBP/ADV) 50 mL MBP 0.5 gIntra VENous Q12H metoprolol tartrate (LOPRESSOR) tablet 25 mg 25 mg Per J Tube BID meto prolol (LOPRESSOR) injection 5 mg 5 mg IntraVENous Q6H PRN LORazepam (ATIVAN) injection 1 mg 1 mg IntraVENous QHS vits A and D-white pet-lanolin (A&D) ointment Topical PRN methylPREDNISolone (PF) (SOLU-MEDROL) injection 40 mg 40 mg Int raVENous Q12H vancomycin 50 mg/mL oral solution (compounded) 125 mg 125 mg Per G Tube Q6H lamoTRIgine (LaMICtal) tablet 100 mg 100 mg Per G Tube QPM lamoTRIgi ne (LaMICtal) tablet 50 mg 50 mg Per G Tube DAILY sodium chloride (NS) flush 5-40 m L 5-40 mL IntraVENous PRN pantoprazole (PROTONIX) 40 mg in 0.9% sodium chloride 10 mL injection 40 mgIntraVENous DAILY acetaminophen (TYLENOL) tablet 650 mg 6 50 mg Oral Q6H PRN ondansetron (ZOFRAN) injection 4 mg 4 mg IntraVENous Q6H PRN albuterol-ipratropium (DUO-NEB) 2.5 MG-0.5 MG/3 ML 3 mL Nebulization Q6HWA RT joan tylcysteine (MUCOMYST) 100 mg/mL (10 %) nebulizer solution 400 mg 4 mLInhalatio n TID RT miconazole (MICOTIN) 2 % cream Topical BID budesonide (PULMICORT) 500 mcg/2 ml nebulizer suspension 500 mcg NebulizationBID RT cinacalcet (SENSIPAR ) tablet 60 mg 60 mg Oral DAILY heparin (porcine) injection 5,000 Units 5,000 U nits SubCUTAneous [id number] Exam:Physical Exam:General: Alert, cooperative, no di stress, on ventEyes: Conjunctivae/corneas clear, OS iridectomy?.EOMs intact.Mouth/ Throat: Lips, mucosa, and tongue normal.Neck: Supple, symmetrical, trachea midline, no adenopathy, thyroid: noenlargement/tenderness/nodules, no car otid bruit and no JVD.Lungs: Mainly clear to auscultation bilaterally.Heart: Regu lar rate and rhythm, S1, S2 normal, no murmur, click, rub or gallop.Abdomen: Soft, non-tender. G tube and J tube sites clean, Bowel sounds normal.Extremities: Extremities contracted, no cyanosis or edema,Pulses: 1+ and symmetric all extre mities.Skin: Skin color, texture, turgor normal. No rashes or lesionsLymph nodes: Anterior Cervical Lymph nodes normalNeurologic: Cranial nerve assessme nt limited due to intubation.CNII-XII grosslyintactData Review:Labs: Results:C hemistry Recent Labs 05/04/200449 05/03/200456 GL U -- 156* -- 116*NA -- 147* -- 147*K -- 3.7 -- 3.8CL -- 110* -- 109*CO 2 37* 33* 36* 34*BUN -- 43* -- 42*CREA -- 2.12* -- 1.99*CA -- 10.1 -- 10 .1AGAP -- 8* -- 8*AP -- 66 -- 64TP -- 6.4 -- 6.6ALB -- 2.2* -- 2.2*G LOB -- 4.2 -- 4.4AGRAT -- 0.5* -- 0.5*CBC w/Diff Recent Labs 05/03/200315WBC 8.8 10.3RBC 2.83* 3.00*HGB 8.7* 9.1*HCT 27.9* 29.3*PLT 452* 523*GRA NS 88* 88*LYMPH 8* 8*EOS 0 0Cardiac Enzymes No results for input(s): CPK, CKND1, NESTOR in the last 72 hours.No lab exists for component: CKRMB, TROIPCoagulation No re sults for input(s): PTP, INR, APTT, INREXT, INREXT in the last72 hours.Lipid Panel L ab ResultsComponent Value Date/Time Cholesterol, total 156 03/12/2019 06:50 AM HDL Cholesterol 71 03/12/2019 06:50 AM LDL, calculated 65.6 03/12/2019 06:50 AM VLDL, calculated 19.4 03/12/2019 06:50 AM Triglyceride 97 03/12/2019 06:50 AM CHOL /HDL Ratio 2.2 03/12/2019 06:50 AMBNP No results for input(s): BNPP in the last 7 2 hours.Liver Enzymes Recent Labs TP 6.4ALB 2.2*AP 66SGOT 9*Th yroid Studies Lab ResultsComponent Value Date/Time TSH 2.990 04/23/2019 07:19 AMI ntake and Output:Intake/Output Summary (Last 24 hours) at 05/05/2019 1015Last data yoshi ed at 05/05/2019 0609Gross per 24 hourIntake 740 mlOutput 1900 mlNet -1160 mlImaging: No results found.Impression/Plan:Active Hospital Problems Diagnosis Date Noted Scrotal rashLocal antifungal tx 04/21/2019 COPD with acute exacerbation (HCC) 04/19 Acute on chronic respiratory failure with hypoxia and hypercapnia (HCC)2019 Acute hypoxemic respiratory failure (HCC)Vent supportIs s/p tracheostomyCont weaning to T tube as toleratedFailed CPAP trial - placed back on vent 03/25/2019 PneumoniaNo longer febrileCXR is unchangedMeropenemMucomystDuonebWBC 16-- > 10--> 8.8AKIGentle hydrationBUN/Creat 42/1.9--> 43/2.12Hold diuretics with inc reased creatinineDysphagiaJ tube for nutritionG tube for stomach decompressio n 11/08/2018Transferred to step downDC planning to vent EAN Harper an 2019~ 10 am Name Value Range Interpretation Code Description Data Harriett rce(s) Supporting Document(s ) ID Date Data Source [id number] 05/05/2019 08:43:57 AM EST [facility] RENAL Progress NoteEvelio Carlin68 y .o.Admit Date: 04/19/2019Active Problems: Pneumonia (11/08/2018) Acute hypoxemic r espiratory failure (HCC) (03/25/2019) COPD with acute exacerbation (HCC) (04/19/2019) Acute on chronic respiratory failure with hypoxia and hypercapnia (HCC)(04/19/2019) Scrotal rash (04/21/2019)Subjective:s/p TrachnormootensiveTolerating feeding wel lPertinent items are noted in the History of Present Illness.Objective:Visit VitalsBP 140/70 (BP 1 Location: Right arm, BP Patient Position: At rest)Pulse 98Temp 97 F (36 .1 C)Resp 18Ht 5' 2" (1.575 m)Wt 55.1 kg (121 lb 8 oz)SpO2 98%BMI 22.22 kg/m Inta ke and Output:Date 05/04/19699 - 05/05/19 0659 05/05/19699 - 05/06/19 0659Shift 2850-3860 2712-9903 24 Hour Total 0061-5592 2024-9968 24 Hour TotalINTAKENG/GT 740 740 Water Flush Volume (mL) (G/J Tube) 200 200 Intake (ml) (G/J Tube) 540 540Shif t Total(mL/kg) 740(13.4) 740(13.4)OUTPUTUrine(mL/kg/hr) 900(1.4) 600(0.9) 1500(1.1) Urine Voided 450 450 Urine Output (mL) (Condom Catheter 05/02) 450 600 1050Emesis/NG output 400 400 Output (ml) (PEG/Gastrostomy Tube) 400 400Shift Total(mL/kg) 900(16.4) 1000(18.1) 1900(34.5)NET -480 -020 -0971Weight (kg) 54.9 55.1 55.1 55.1 55.1 55.1Medications Reviewed:Current Facility-Administered M edicationsMedication Dose Route Frequency Provider Last Rate Last Dose meropenem (MERREM) 500 mg in 0.9% sodium chloride (MBP/ADV) 50 mL MBP 0.5 gIntraVENous Q1 2H Natasha Dudley MD 100 mL/hr at 05/04/19 2154 500 mg at 154 metoprolol tartrate (LOPRESSOR) tablet 25 mg 25 mg Per J Tube BID Sotero León MD Stopped at 05/04/19 215 metoprolol (LOPRESSOR) injection 5 mg 5 mg IntraVENous Q6H PRN Sotero León MD LORazepam (ATIVAN) injection 1 mg 1 mg IntraVENous QHS Obe rRoberto MD 1 mgat 05/04/192152 vits A and D-white pet-lanolin (A&D) ointment Topical PRN Krystian Monae MD methylPREDNISolone (PF) (SOLU-MEDROL) in jection 40 mg 40 mg IntraVENous Q10LBnofflmobKareen gonzales MD 40 mg at 05/04/192152 vancomycin 50 mg/mL oral solution (compounded) 125 mg 125 mg Per G Tube [id number] gonzaels MD 125 mg at 05/05/19 0530 lamoTRIgine (LaMICtal) tablet 100 mg 100 mg Per G Tube QPM Laura Mills MD 100 mg at 04/16 1735 lamoTRIgine (LaMICtal) tablet 50 mg 50 mg Per G Tube DAILY Dayanara Mills MD 50 mg at 05/04/19 0846 sodium chloride (NS) flush 5-40 mL 5-40 mL Int raVENous PRN Laura Mills MD pantoprazole (PROTONIX) 40 mg in 0.9% so dium chloride 10 mL injection 40 mgIntraVENous DAILY Kareen Mills MD 40 mg at 05/04/19 0845 acetaminophen (TYLENOL) tablet 650 mg 650 mg Oral Q6H PRN Laura Mills MD 650 mg at 05/04/19 0515 ondansetron (ZOFRAN) inje ction 4 mg 4 mg IntraVENous Q6H PRN Kareen Mills MD albuterol-iprat ropium (DUO-NEB) 2.5 MG-0.5 MG/3 ML 3 mL Nebulization Q6HWA RTKareen Mills MD 3 mL at 05/05/19 0839 acetylcysteine (MUCOMYST) 100 mg/mL (10 %) nebulizer so lution 400 mg 4 mLInhalation TID RT Kareen Mills MD 400 mg at 0839 miconazole (MICOTIN) 2 % cream Topical BID Kareen Mills MD bu desonide (PULMICORT) 500 mcg/2 ml nebulizer suspension 500 mcg NebulizationBID RT L Kareen gonzales MD 500 mcg at 05/04/19 2046 cinacalcet (SENSIPAR) tablet 60 mg 60 mg Oral DAILY Kareen Mills MD60 mg at 05/04/19 0845 heparin (porcine) i njection 5,000 Units 5,000 Units SubCUTAneous [id number] gonzales M D 5,000 Units at 05/05/19 0530Physical Exam:Physical Exam:AlertS1 s2 tachyResp: decreased BSAbd: softExt: LUE edema +LE edema+Data Review:Recent Results (from t he past 24 hour(s))MAGNESIUM Collection Time: 05/05/19 4:13 AMResult Value Ref Range Magnesium 2.7 (H) 1.6 - 2.6 mg/dLImaging:No results found.Impression:Active Hospital Problems Diagnosis Date Noted Scrotal rash 04/21/2019 COPD with acute exacerbation (HCC) 04/19/2019 Acute on chronic respiratory failure with hypoxia and hyp ercapnia (HCC)04/19/2019 Acute hypoxemic respiratory failure (HCC) 03/25/2019 Pn eumonia 11/08/2018 NOAH. S/p trach HypernatremiaPlan:DC LasixAdd free water 100ml every 4 hoursFollow up labsD/c Kailey Frankel MDJanuary 2019 Name Value Range Interpretation Code Description Data [facility] rce(s) Supporting Document(s ) ID Date Data Source [id number] 05/05/2019 07:56:49 AM [facility] Bedside and Verbal shift change report g iven to Tatum Darby RN (oncomingnurse) by Elizabeth Campbell RN (offgoing nurse). Report included the followinginformation SBAR, Kardex, Intake/Output, MAR and Cardiac R hythm NSR. Name Value Range Interpretation Code Description Data [facility] rce(s) Supporting Document(s ) ID Date Data Source [id number] 05/05/2019 04:48:01 AM [facility] Name Value Range Interpretation Description Data Sup porting Code Source(s) Document(s ) Magnesium 2.7 mg/dL 1.6-2.6 Above high normal [facility] [Mass/volume] Taoist in Serum or Hospital Plasma ID Date Data Source [id number] 05/05/2019 04:02:36 AM [facility] Problem: Falls - Risk ofGoal: *Absence o f FallsDescriptionDocument Samra Fall Risk and appropriate interventions in the jhon wsheet.Outcome: Progressing Towards GoalNote: Fall Risk Interventions:Mentation Interv entions: Adequate sleep, hydration, pain control, Door open whenpatient unattende d, Evaluate medications/consider consulting pharmacy, Morefrequent rounding, Reorien t patient, Toileting roundsMedication Interventions: Bed/chair exit alarm, Odalis luate medications/considerconsulting pharmacyElimination Interventions: Bed/c hair exit alarm, Call light in reach, Toiletingschedule/hourly roundsProblem: Patient Education: Go to Patient Education ActivityGoal: Patient/Family EducationOu tcome: Not Progressing Towards GoalProblem: Tissue Perfusion - Cardiopulmonary, Alte redGoal: *Optimize tissue perfusionOutcome: Progressing Towards GoalGoal: *Absence o f hypoxiaOutcome: Progressing Towards Goal Name Value Range Interpretation Code Description Data [facility] rce(s) Supporting Document(s ) ID Date Data Source [id number] 05/04/2019 07:36:08 PM [facility] Bedside and Verbal shift change report carol EMMANUEL RN (oncoming nurse) Mahnaz DOYLE RN (offgoing nurse). Report inclu ded the following informationSBAR, Kardex, ED Summary, Intake/Output, MAR, Recent Resu lts, Med Rec Status andCardiac Rhythm NSR. Name Value Range Interpretation Code Description Data [facility] Supporting Document(s ) ID Date Data Source [id number] 05/04/2019 07:18:10 PM [facility] Reviewed Ventilator Settings with onc oming RT edwin root.Alarms, Settings, Weaning , Transports. Ventilator wiped d own with bleachwipes.RT Clarisa Name Value Range Interpretation Code Description Data [facility] Supporting Document(s ) ID Date Data Source [id number] 05/04/2019 04:56:18 PM [facility] Problem: Ventilator ManagementGoal: *Stephanie quate oxygenation and ventilationOutcome: Progressing Towards GoalGoal: *Patient m aintains clear airway/free of aspirationOutcome: Progressing Towards G oalGoal: *Absence of infection signs and symptomsOutcome: Progressing Towards Goa lGoal: *Normal spontaneous ventilationOutcome: Progressing Towards GoalProblem: Patient Education: Go to Patient Education ActivityGoal: Patient/Family E ducationOutcome: Progressing Towards Goal Name Value Range Interpretation Code Description Data [facility] Supporting Document(s ) ID Date Data Source [id number] 05/04/2019 01:33:02 PM [facility] Critical Care Progress N [facility]Krystian Monae MD., F.C.C.P.Stella Hamilton MD., F.C.C.P. [address] [place] [address] [place] [address] Name: Evelio VierascottbeinDOB: 1950MRN: [id number]: 05/04/2019Subjective:Mr. Carlin is a 68 y.o. year old male who is being see n for ACUTEHYPERCAPNIC AND HYPOXIC RESPIRATORY FAILURE . PATIENT REMAINED WHOLE [place] A/C MODE FOR RESPIRATORY DISTRESS AND MUSCLE FATIGUE .CHEST XR AY SHOES INFILTRATE R L L AND L L L , COPD , SMALL PL, EFFUSIONST = 100. 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) Pneumonia Psychiatric disorder s chizophrenia Pulmonary emboli (HCC) Schizophrenia (HCC)Allergy:No Known Des rgiesVital Signs:Patient Vitals for the past 24 hrs: BP Temp Pulse Resp SpO2 [id number] 1302 150/84 97.8 F (36.6 C) 72 16 97 % -05/04/19 1100 - - 74 15 - -05/04/19 1 000 101/69 - 64 15 98 % -05/04/19 0900 131/81 - 82 16 100 % -05/04/19 0830 - - 83 16 - -05/04/19 0800 123/83 - 82 18 99 % -05/04/19 0700 97/52 - 68 21 98 % -05/04/19 0600 1 16/54 - - 16 98 % 54.9 kg (121 lb 0.5 oz)05/04/19 0506 123/62 (!) 100.8 F (38 .2 C) 90 16 98 % -05/04/19 0400 133/79 99.9 F (37.7 C) 87 19 99 % -05/04/19 0300 (! ) 116/98 100 F (37.8 C) 90 17 98 % -05/04/19 0200 140/74 100 F (37.8 C) 9 2 15 96 % -05/04/19 0130 121/65 100 F (37.8 C) 87 17 96 % -05/04/19 0000 149/67 100. 4 F (38 C) 94 21 - -05/03/19 2300 101/67 100 F (37.8 C) 79 18 - -05/03/19 2220 - - 85 19 96 % -05/03/192214 116/77 - - - - -05/03/19 2200 (!) 84/45 99.9 F (37.7 C) 79 18 - -05/03/19 2100 98/45 99.7 F (37.6 C) 96 19 95 % -05/03/192054 - - 87 17 97 % -05/03/192025 - - - - 97 % -05/03/19 2000 108/54 99.5 F (37.5 C) 92 16 97 % -05/03/19 1930 - - 94 16 99 % -05/03/19 1900 129/63 99.3 F (37.4 C) 93 21 98 % - 1800 123/80 - 93 22 93 % -05/03/19 1729 - - 90 13 98 % -05/03/19 1700 90/53 - 93 26 94 % -05/03/19 1600 (!) 138/93 - 99 24 93 % -05/03/19 1500 129/54 99.3 F (37.4 C ) 90 17 96 % -05/03/19 1400 105/65 99.3 F (37.4 C) 83 25 98 % -05/03/19 1355 - - 84 17 100 % -Pulse OX:SpO2 Readings from Last 6 Encounters:05/04/19 97%04/16/19 100% 99%03/17/19 92%02/19/19 96%02/18/19 92%@LASTSAO2(6)@Intake/Output:Last shift : No intake/output data recorded.Last 3 shifts: 05/02 1900 - 05/04 0700In: 1770 [I.V.:100]Out: 2875 [Urine:1925; Drains:100]Intake/Output Summary (Last 2 4 hours) at 05/04/2019 1325Last data filed at 05/04/2019 0619Gross per 24 hourIntake 11 20 mlOutput 1950 mlNet -830 mlHemodynamics:.@MAP.@CVPVentilator Sett ings:Ventilator Mode: PRVCRespiratory RateBack-Up Rate: 15Insp Time (sec): 0.9 secI:E Ratio: 1:3Ventilator VolumesVt Set (ml): 400 mlVt Exhaled (Machine Breath) (ml): 409 mlVt Spont (ml): 375 mlVe Observed (l/min): 6.6 l/minVentilator PressuresPr essure Support (cm H2O): 10 cm H2OPIP Observed (cm H2O): 15 cm H2OMAP (cm H2O) : 6PEEP/VENT (cm H2O): 5 cm R65Vocc PEEP Observed (cm H2O): 2.3 cm L2KZksu Rate T idal Volume Pressure FiO2 PEEPPRVC 400 ml 10 cm H2O 40 % 5 cm L41Byqr airway press ure: 15 cm M3EOimdjy ventilation: 6.6 l/minARDS network Guidelines: Lung prote ctive strategy and Pl pressure goals 15lessthan or equal to 30Physical Exam:I NTUBATED ON VENTILATOR , MORE AWAKE A ND IS COMFORTABLE . General: Alert , cooperative, no distress, appears stated age. Head: Normocephalic, w ithout obvious abnormality, atraumatic. Eyes: Conjunctivae/corneas clear. PERRL, EOMs intact. Nose: Nares normal. No drainage or sinus tenderness Throat: Lips, mucosa, and tongue normal Neck: Supple, symmet rical, trachea midline, no adenopathy,thyroid: no enlargem ent/tenderness/nodules, no carotid bruit and no JVD. Lungs: RALES + R L L AND L L L , WHEEZING +1 , MILD DULLNESS ATBASES to auscultation bilaterally. C hest Wall: No tenderness or deformity. Heart: Regular rate and rhythm, S1, S2 normal, no murmur, click,rub or NO gallop. Abdomen: Soft, non-tender. Bowel sounds normal. No masses, No organomegaly. Extremities: Extremities normal, atraumatic, no cyanosis or edema. Pulses: 4+ bilaterally Skin: Skin color, texture, turgor normal. No rashes or lesions. Neurologic: CNI I-XII intact. No focal motor or sensory deficit.DATA:Current Facility-Administer ed MedicationsMedication Dose Route Frequency meropenem (MERREM) 500 mg in 0.9% sodiu m chloride (MBP/ADV) 50 mL MBP 0.5 gIntraVENous Q12H metoprolol tartrate ( LOPRESSOR) tablet 25 mg 25 mg Per J Tube BID metoprolol (LOPRESSOR) injection 5 mg 5 mg IntraVENous Q6H PRN LORazepam (ATIVAN) injection 1 mg 1 mg IntraVENous QHS vi ts A and D-white pet-lanolin (A&D) ointment Topical PRN methylPREDNISolone (PF) (SO [place]-MEDROL) injection 40 mg 40 mg IntraVENous Q12H vancomycin 50 mg/mL oral solution (compounded) 125 mg 125 mg Per G Tube Q6H lamoTRIgine (LaMICtal) tablet 100 mg 10 0 mg Per G Tube QPM lamoTRIgine (LaMICtal) tablet 50 mg 50 mg Per G Tube DAILY so dium chloride (NS) flush 5-40 mL 5-40 mL IntraVENous PRN pantoprazole (PROTONIX) 40 mg in 0.9% sodium chloride 10 mL injection 40 mgIntraVENous DAILY aceta minophen (TYLENOL) tablet 650 mg 650 mg Oral Q6H PRN ondansetron (ZOFRAN) injection 4 mg 4 mg IntraVENous Q6H PRN albuterol-ipratropium (DUO-NEB) 2.5 MG-0 .5 MG/3 ML 3 mL Nebulization Q6HWA RT acetylcysteine (MUCOMYST) 100 mg/mL (10 %) nebulizer solution 400 mg 4 mLInhalation TID RT miconazole (MICOTIN) 2 % cream Topical BID budesonide (PULMICORT) 500 mcg/2 ml nebulizer suspension 500 mcg N ebulizationBID RT cinacalcet (SENSIPAR) tablet 60 mg 60 mg Oral DAILY heparin (porcine) injection 5,000 Units 5,000 Units SubCUTAneous U41ASpuaavjtf: [x]Sinus []A -flutter []Paced []A-fib []Multiple PVC'sLabs:Recent Results (from the past 24 hour(s))MAGNESIUM Collection Time: 05/04/19 4:12 AMResult Value Ref Range Magnesium 2.7 (H) 1.6 - 2.6 mg/dLCBC WITH AUTOMATED DIFF Collection Time: 05/04/19 4:12 AMResult Value Ref Range WBC 8.8 4.8 - 10.6 K/uL RBC 2.83 (L) 4.70 - 6.00 M/uL HGB 8.7 (L) 14.0 - 18.0 g/dL HCT 27.9 (L) 42.0 - 52.0 % MCV 98.6 (H) 81.0 - 94.0 F L MCH 30.7 27.0 - 35.0 PG MCHC 31.2 30.7 - 37.3 g/dL RDW 18.3 (H) 11.5 - 14.0 % JOCELYN TELET 452 (H) 130 - 400 K/uL MPV 9.9 9.2 - 11.8 FL NRBC 0.0 0 PER 100 WBC ABSOLUTE NRBC 0.00 0.0 - 0.01 K/uL NEUTROPHILS 88 (H) 48.0 - 72.0 % LYMPHOCYTES 8 (L) 18.0 - 4 0.0 % MONOCYTES 4 2.0 - 12.0 % EOSINOPHILS 0 0.0 - 7.0 % BASOPHILS 0 0.0 - 3.0 % BRADLEY TURE GRANULOCYTES 1 (H) 0 - 0.5 % ABS. NEUTROPHILS 7.7 (H) 2.3 - 7.6 K/UL ABS. LYMPHOCYTES 0.7 (L) 0.9 - 4.2 K/UL ABS. MONOCYTES 0.4 0.1 - 1.7 K/UL ABS. EOSINO PHILS 0.0 0.0 - 1.0 K/UL ABS. BASOPHILS 0.0 0.0 - 0.4 K/UL ABS. IMM. GRANS. 0.0 0.0 - 0.17 K/UL DF AUTOMATEDMETABOLIC PANEL, COMPREHENSIVE Collection Time: 05/04/19 4:12 AMResult Value Ref Range Sodium 147 (H) 136 - 145 mmol/L Potassium 3.7 3.5 - 5.1 mmol/L Chloride 110 (H) 98 - 107 mmol/L CO2 33 (H) 21 - 32 mmol/L Anion gap 8 (L) 10 - 20 mmol/L Glucose 156 (H) 74 - 106 mg/dL BUN 43 (H) 7 - 18 mg/dL Creatinine 2.12 (H) 0.70 - 1.30 mg/dL GFR est AA 40 (L) >60 ml/min/1.73m2 GFR est non-AA 33 (L) >60 ml/min/1.73m2 Calcium 10.1 8.5 - 10.1 mg/dL Bilirubin, total 0.3 0.2 - 1.0 mg/dL ALT (SGPT) 8 (L) 13 - 61 U/L AST (SGOT) 9 (L) 15 - 37 U/L Alk. phosphatase 66 45 - 117 U/ L Protein, total 6.4 6.4 - 8.2 g/dL Albumin 2.2 (L) 3.5 - 4.7 g/dL Globulin 4.2 1.7 - 4.7 g/dL A-G Ratio 0.5 (L) 0.7 - 2.8BLOOD GAS, ARTERIAL Collection Time: 05/04/19 5:49 AMResult Value Ref Range pH 7.55 (H) 7.35 - 7.45 PCO2 41 32 - 48 mmHg PO2 84 83 - 108 mmHg CO2, TOTAL 37 (H) 19 - 24 mmol/L BICARBONATE 36 (H) 21 - 28 mmol/L O2 SAT 99 (H) 94 - 98 % BASE EXCESS 12.3 (H) 0 - 3 mmol/L SITE LEFT RADIAL MIRANDA'S TE ST POSITIVE DEVICE VENTILATOR FIO2 40.0 % MODE Pressure regulated volume control P EEP/CPAP 5 Tidal volume 400 RATE 15 Performed by [id number]:Recent Labs 05/04/200449 56 05/02/200450PH 7.55* 7.54* 7.51*PCO2 41 41 47PO2 84 56* 74*HCO3 36* 35* 38*FIO2 40.0 40.0 40.0Recent Glucose Results:Lab ResultsComponent Value Date/ Time GLU 156 (H) 05/04/2019 04:12 AMCULTURES:All Micro Results Procedure C omponent Value Units Date/Time CULTURE, BLOOD [[id number]] Collected: 04/25/19 1210 Or bassem Status: Completed Specimen: Blood Updated: 04/30/19 135 Special Request s: NO SPECIAL REQUESTS Culture result: NO GROWTH 5 DAYS CULTURE, BLOOD [[id number]] Collected: 04/25/19 1205 Order Status: Completed Specimen: Blood Updated: 135 Special Requests: NO SPECIAL REQUESTS Culture result: NO GROWTH 5 DA YS CULTURE, RESPIRATORY/SPUTUM/BRONCH W GRAM STAIN [[id number]] (Abnormal)(Susceptibi lity) Collected: 04/26/19 1700 Order Status: Completed Specimen: Sputum from Trache al Aspirate Updated:04/29/19 1051 Special Requests: NO SPECIAL REQUESTS GRAM STAI N 10-25 WBC/lpf <10 EPI/lpf FEW GRAM POSITIVE RODS Culture result: MODERATE PSEUDOMONAS AERUGINOSA C. DIFFICILE (DNA) [[id number]] Collected: 04/27/19 0915 Or bassem Status: Completed Specimen: Stool Updated: 04/27/19 1246 C. difficile (D NA) NEGATIVE Comment: This specimen is negative for toxigenic C difficile by DN Aamplification. Repeat testing is not recommended for confirmation, samplesrec eived within 7 days of this negative result will be rejected. C. DIFFICILE (DNA) [[id number]] (Abnormal) Collected: 04/25/19 1715 Order Status: Completed Specimen: Stool Updated: 04/26/19 1551 C. difficile (DNA) TEST RESULT IS INCONCLUSIVE. MINADevang GRAHAM SUBMIT A NEW SPECIMEN FOR ANALYSIS. CULTURE, URINE [[id number]] Collected: 0 04/25/19 1147 Order Status: Completed Specimen: Urine from Clean catch Update d: Special Requests: NO SPECIAL REQUESTS Culture result: NO HAIDER WTH 1 DAY C. DIFFICILE (DNA) [[id number]] Collected: 04/26/19 0930 Order Status: Canceled Specimen: Stool CULTURE, BLOOD [[id number]] Collected: 04/20/19 1440 Or bassem Status: Completed Specimen: Blood Updated: 04/26/19817 Special Request s: NO SPECIAL REQUESTS Culture result: NO GROWTH 6 DAYS CULTURE, BLOOD [[id number]] Collected: 04/20/19 1447 Order Status: Completed Specimen: Blood Updated: 04/03 Special Requests: NO SPECIAL REQUESTS Culture result: NO GROWTH 6 DA YS CULTURE, BLOOD [[id number]] (Abnormal) Collected: 04/19/19 1005 Order Status: Completed Specimen: Blood Updated: 04/22/19 0731 Special Requests: NO SPEC IAL REQUESTS GRAM STAIN GRAM POSITIVE COCCI IN CLUSTERS ANAEROBIC BOTTLE CALLED TO AND READ BACK BY ROB LEDEZMA,RN, ED, 7020 ON 04/20/19 CELIIA Culture re sult: STAPHYLOCOCCUS EPIDERMIDIS : Refer to previous culture(s) for susceptibilityre sults CULTURE, BLOOD [[id number]] (Abnormal) (Susceptibility) Collected: 5 Order Status: Completed Specimen: Blood Updated: 04/22/19 0729 Special Request s: NO SPECIAL REQUESTS GRAM STAIN GRAM POSITIVE COCCI IN CLUSTERS ANAEROBIC BOT TLE CALLED TO AND READ BACK BY ROB LEDEZMA RN, ED, AT 0953 ON 04/20/19 TO SHERRILL Culture result: STAPHYLOCOCCUS EPIDERMIDISXR Results (most recent):Resu lts from Hospital Encounter encounter on 04/19/19XR CHEST SNGL V Narrative Histor y:Respiratory difficulty.FINDINGS:A frontal portable view of the chest is compared t o the prior study of theprevious date.The tracheostomy tube and EKG leads are unch anged.The cardiac silhouette is normal in size. Evaluation of the lungs andmediast inal structures reveals continued minimal blunting of the leftcostophrenic angle. There remains some density in the medial right lung base.Mediastinal and hilar st ructures are unremarkable. When differences inprojection and technique are taken int o account these findings may be similar. Impression IMPRESSION:Findings similar t o that seen previously.CT Results (most recent):Results from Hospital Encounter encounter on 04/19/19CT CHEST ABD PELV WO CONT Narrative Referring Physician: MARYANN HILLSPatient Name: EVELIO FISCHBEINFINAL REPORT FROM IMAGING ON [place] [facility]: CT chest without contrast and CT abdomen pelvis withoutcontrastDATE OF EX AM: 2019-04-20 20:52:12IMAGES: 681HISTORY: reduced breath sounds right lung, LLQ te ndernessComparison: 03/14/19 and 12/21/18FINDINGS: Axial images of the ches t, abdomen and pelvis areobtained without iv contrast.Chest: Mediastinal assessment i s limited without contrast. Imagequality limited by artifacts. Patchy lung opacit ies right greaterthan left similar to prior. Small pleural effusions. Vascularincludi ng coronary calcifications. Mediastinum appears shifted tothe right. Left hemidi aphragm is elevated.Abdomen and pelvis: Nonspecific bowel pattern, with post nena gicalchanges on the left. No definite free air. Organ assessmentlimited without iv contrast. No significant free fluid or freeair.No bowel obstruction or abscess seen. Catheter and air in thebladder which is not well assessed. Left hip hardware par tiallyseen with old fracture deformity. G-J tube is present. Ventralhernia right of midline at abdominal wall with multiple smallbowel loops without obstructive pat tern. Mild right muscleswelling with possible hematoma and calcification at right groi nimage 117/120. Degenerative bony changes. Multiple likely chroniccompression defor mities at thoracic and lumbar spine. BilateralL5-S1 spondylolysis and anterol isthesis. Impression IMPRESSION: Right greater than left lung infiltrates and e ffusions.No bowel obstruction. 2 cm hyperdensity at a bowel loop in leftpelv is image 90/120, possibly ingested material, or a tubefragment or post surgical singleton e.Ventral abdominal hernia seen.See above.One or more of the following dose reduction techniques were used:automated exposure control, adjustment of the mA and/or kVa ccording to patient size, use of iterative reconstructivetechnique.THIS DOCUMENT NELSON S BEEN ELECTRONICALLY SIGNEDFrsofia Edge MD04/20/2019 22:43 ESTM.D. Please call I maging Wireless Consultant [phone] ([phone]) withquestions.This report was electronic ally signed by:Marcie Edge MD 04/20/2019 10:44 PMImages:@[email or web address]@ HELP TEXTT his SmartLink requires a parameter for processing. Parameters are variableswhic h can be added to the original SmartLink name. This allows you to requestspecific information by giving the SmartLink precise direction.The BSHSILASTIMGCAT SmartLink accepts (as a parameter) an external procedure IDor an anatomical region. Typ ically, this external ID would be the CPT code.You can also request the number of procedures to be displayed by this SmartLink.To indicate the number, type t he procedure ID or anatomical regions followed bya colon and then the number o f procedures. To display all occurences for thatparticular procedure ID/anatomical r egions, type an asterisk in place of thenumber. To obtain only the last occur ence, type the procedure ID/anatomicalregions without the colon, number, or asterisk.T his SmartLink can display other procedures in the same procedure category if aparamete r is set.The SmartLink will display the last x cases of the procedure or anatomicalre gions you entered.Example: .BSHSILASTIMGCAT[[id number] example wo uld display results for the last three orders with an externalprocedure ID of [id number] he patient is: [x] acutely ill Risk of deterioration: [x] moderate [] criticall y ill [] highActive Problems: Pneumonia (11/08/2018) Acute hypoxemic respiratory failure (HCC) (03/25/2019) COPD with acute exacerbation (HCC) (04/19/2019) Acute on chronic respiratory failure with hypoxia and hypercapnia (HCC)(04/19/2019) Scrotal torsten h (04/21/2019)IMPRESSION: ACUTE HYPERCAPNIC AND HYPOXIC RESPIRATORY FAILURE DUE T O SEVERE COPD /PNEUMONIA R ML , R L L IMPROVING 1. ATELECTASIS R L L , L L L RESOLVED2. PLEURAL EFFUSION ARE RESOLVING 3. RESPIRATORY ALKALOSIS PH = 7.554. SEVERE COPD 5. SEVERE METABOLIC ENCEPHALOPATHY IMPROVED POS T TRACHEOSTOMY 05/01/20196. MUSCLE FATIGUE7. SEVERE MENTAL RETARDATION8. SEIZURE V S TREMORS ON LAMICTAL SEEN BY DR SCHNEIDER 9. PNEUMONIA - G N R , PSEUDOMONAS A [id number]. SEPSIS L A = 2.5 RESOLVING 11. BACTEREMIA G + COCCI - STAPH EPID ERMITIS 12. SEVERE MAL NUTRITION ,S/P J TUBE INSERTION 05/01/201913. ALB = 1.4 SEVERE HYPOALBUMINEMIA Plan: 1 CONTINUE VENTILATOR SUPPORT , DE CREASE RATE = . DUO NEB Q 4 H2. MUCOMYST 10 % VIA MINI NEB Q 8 H3. LAS IX 20 MG I V P B I D PER RENAL - DR FRANKEL 4. DISCUSSED WITH RN ON BED SI DE 5 CONT MEROPENEM AND VANCOMYCIN [address] MOTLEY7 PROSTAT FOR SEVERE HYPOALBUMINEMI 8 , I V SOLUMEDROL FOR COPD 9 MUC OMYST TO LOOSEN TRACHEOBRONCHIAL SECTERTIONS CHEST P T TO MOBILIZE SEC RETIONS 8 CONT CHEST P T 9 MAY TRANSFER TO 3 N TELEMETRY My asses sment, plan of care, findings, medications, side effects etc werediscussed with:[x]n ursing []PT/OT[x]respiratory therapy [x][]family []Critical Care Pro vided 45 minutes non procedure based.Krystian Monae MD F.C.C.P. Name Value Range Interpretation Code Description Data Harriett rce(s) Supporting Document(s ) ID Date Data Source [id number] 05/04/2019 01:13:46 PM EST [facility] Received the patient from CCU via bed ac companied by RN and RT.Patient has trach and on mechanical vent .On JT feeding osmol ite 1.5.Patient has Flexiseal and peg drain present.Will continue to monitor. Name Value Range Interpretation Code Description Data Harriett rce(s) Supporting Document(s ) ID Date Data Source [id number] 05/04/2019 11:50:45 AM EST [facility] ID Progress Note05/04/2019Subjective:Bloo d cx remain negativeResp cx with pseudomonasS/p tracheostomy and jejunost rosina tube placement.On vent support.Wbc trending downLow grade fever.Objective:Justin jules of SystemsPatient is unable to provideVitals:Patient Vitals for the pas t 24 hrs: BP Temp Pulse Resp SpO2 Fhvqdy79/20/20 1100 - - 74 15 - - 0 1000 101/69 - 64 15 98 % -05/04/19 0900 131/81 - 82 16 100 % -05/04/19 0830 - - 83 16 - -05/04/19 0800 123/83 - 82 18 99 % -05/04/19 0700 97/52 - 68 21 98 % -05/04 0600 116/54 - - 16 98 % 54.9 kg (121 lb 0.5 oz)05/04/19 0506 123/62 (!) 100.8 F (38.2 C) 90 16 98 % -05/04/19 0400 133/79 99.9 F (37.7 C) 87 19 99 % -05/04/19 0 300 (!) 116/98 100 F (37.8 C) 90 17 98 % -05/04/19 0200 140/74 100 F (37.8 C) 9 2 15 96 % -05/04/19 0130 121/65 100 F (37.8 C) 87 17 96 % -05/04/19 0000 149/67 100. 4 F (38 C) 94 21 - -05/03/19 2300 101/67 100 F (37.8 C) 79 18 - -05/03/19 2220 - - 85 19 96 % -05/03/19 2215 116/77 - - - - -05/03/19 2200 (!) 84/45 99.9 F (37.7 C) 79 18 - -05/03/19 2100 98/45 99.7 F (37.6 C) 96 19 95 % -05/03/192054 - - 87 17 97 % -05/03/192025 - - - - 97 % -05/03/19 2000 108/54 99.5 F (37.5 C) 92 16 97 % -05/03/19 1930 - - 94 16 99 % -05/03/19 1900 129/63 99.3 F (37.4 C) 93 21 98 % - 1800 123/80 - 93 22 93 % -05/03/19 1729 - - 90 13 98 % -05/03/19 1700 90/53 - 93 26 94 % -05/03/19 1600 (!) 138/93 - 99 24 93 % -05/03/19 1500 129/54 99.3 F (37.4 C ) 90 17 96 % -05/03/19 1400 105/65 99.3 F (37.4 C) 83 25 98 % -05/03/19 1355 - - 84 17 100 % -05/03/19 1300 107/50 99.5 F (37.5 C) 75 15 97 % -05/03/19 1200 107/ 78 99.5 F (37.5 C) 79 15 97 % -Tmax: Temp (24hrs), Av.8 F (37.7 C), Min:99.3 F (37.4 C), Max:100.8 F(38.2 C)Physical Exam:General: Awake on vent no distress Eyes: Conjunctivae/corneas clear. PERRLNeck: Supple, symmetrical, trachea midline, no adenopathyLungs: bilateral breath sounds with basal crackles..Heart: Regular rat e and rhythm, S1, S2 normal, no murmurAbdomen: Soft, non-tender. Bowel sounds normal. No masses, Noorganomegaly.peg+J tube+Back: No CVA tenderness.Extremities: No cyanosis ,chronic lymphedema .Pulses: 2+ and symmetric all extremities.Skin: Skin color, texture, turgor normal. No rashes or lesionsLymph nodes: Cervical, supraclavicular, and axillary nodes normal.Current Facility-A dministered MedicationsMedication Dose Route Frequency meropenem (MERREM) 500 mg in 0.9% sodium chloride (MBP/ADV) 50 mL MBP 0.5 gIntraVENous Q12H meropenem (MERREM) 50 0 mg in 0.9% sodium chloride (MBP/ADV) 50 mL MBP 0.5 gIntraVENous ONCE metoprolol t artrate (LOPRESSOR) tablet 25 mg 25 mg Per J Tube BID metoprolol (LOPRESSOR) injecti on 5 mg 5 mg IntraVENous Q6H PRN LORazepam (ATIVAN) injection 1 mg 1 mg IntraVENou s QHS vits A and D-white pet-lanolin (A&D) ointment Topical PRN methylPREDNISolo ne (PF) (SOLU-MEDROL) injection 40 mg 40 mg IntraVENous Q12H vancomycin 50 mg/mL or al solution (compounded) 125 mg 125 mg Per G Tube Q6H lamoTRIgine (LaMICtal) tablet 100 mg 100 mg Per G Tube QPM lamoTRIgine (LaMICtal) tablet 50 mg 50 mg Per G Tub e DAILY sodium chloride (NS) flush 5-40 mL 5-40 mL IntraVENous PRN pantoprazole (P ROTONIX) 40 mg in 0.9% sodium chloride 10 mL injection 40 mgIntraVENous DAILY aceta minophen (TYLENOL) tablet 650 mg 650 mg Oral Q6H PRN ondansetron (ZOFRAN) injection 4 mg 4 mg IntraVENous Q6H PRN albuterol-ipratropium (DUO-NEB) 2.5 MG-0 .5 MG/3 ML 3 mL Nebulization Q6HWA RT acetylcysteine (MUCOMYST) 100 mg/mL (10 %) nebulizer solution 400 mg 4 mLInhalation TID RT miconazole (MICOTIN) 2 % cream Topical BID budesonide (PULMICORT) 500 mcg/2 ml nebulizer suspension 500 mcg N ebulizationBID RT cinacalcet (SENSIPAR) tablet 60 mg 60 mg Oral DAILY heparin (porcine) injection 5,000 Units 5,000 Units SubCUTAneous E51HFwwk:Recent Labs 01/20 05/03/200305/02/200330WBC 8.8 10.3 16.1*HGB 8.7* 9.1* 9.4*PLT 452* 523* 551 *BUN 43* 42* 43*CREA 2.12* 1.99* 1.79*SGOT 9* 16 14*AP 66 64 62TBILI 0.3 0.6 0.7Cultur es:Lab ResultsComponent Value Date/Time Culture result: MODERATE PSEUDOMONAS AER UGINOSA (A) 04/26/2019 05:00 PM Culture result: NO GROWTH 5 DAYS 04/25/2019 12:1 0 PM Culture result: NO GROWTH 5 DAYS 04/25/2019 12:05 PMRadiology:Xr Chest Sn gl VResult Date: 05/04/2019History: Respiratory difficulty. FINDINGS: A fron krystian portable view of the chestis compared to the prior study of the previous date. Th e tracheostomy tube andEKG leads are unchanged. The cardiac silhouette is nor mal in size. Evaluation ofthe lungs and mediastinal structures reveals continued minimal blunting of theleft costophrenic angle. There remains some density in the medial right lungbase. Mediastinal and hilar structures are unremarkable. When differ ences inprojection and technique are taken into account these findings may be simil ar.IMPRESSION: Findings similar to that seen previously.Assessment: Staph sepsis. A spiration pneumonia (pseudomonas) Acute COPD exacerbation. Acute respiratory failure . Pleural effusion. Dysphagia Fever Plan:1. Continue meropenem2. Continue or al vancomycin prophylaxis ameriacFomalaika Dudley MDJanuary 201911:49 AM Name Value Range Interpretation Code Description Data [facility] Supporting Document(s ) ID Date Data Source [id number] 05/04/2019 11:42:51 AM EST [facility] Unable to access merrem dose because dur ation of administration changed andorder d/c. Note send to pharmacy to re profile medi cation so can accessmedication, relayed this information to Leodan PITTS on 3N Name Value Range Interpretation Code Description Data [facility](s) Supporting Document(s ) ID Date Data Source [id number] 05/04/2019 11:23:25 AM EST [facility] TRANSFER - OUT REPORT:Verbal report give n to Matten RN(name) on Evelio Carlin being transferredto 3N(unit) for routine progression of careReport consisted of patient's Situation, Background, Assessm ent andRecommendations(SBAR).Information from the following report(s) SBAR, Kardex, In take/Output, MAR,Recent Results and Cardiac Rhythm NSR was reviewed with the yarelis oro nurse.Opportunity for questions and clarification was provided. Name Value Range Interpretation Code Description Data Harriett rce(s) Supporting Document(s ) ID Date Data Source [id number] 05/04/2019 10:17:03 AM EST [facility] YUAN done and placed into chart. Name Value Range Interpretation Code Description Data Harriett rce(s) Supporting Document(s ) ID Date Data Source [id number] 05/04/2019 10:14:22 AM [facility] ICU - Progress NoteCoverage for Dr Olivia Llanosblanka Carlin is 68 y.o. male with significant PMhx of Dysphagia, recurrent aspiration pneumonia, s/p g/t placement on 11/17/18 and conversion to PEJ on02/07/19, hyperlipidemia, hyperparathyroid unspecified, seizure, large hiatalhernia , anxiety disorder, personal history of pulmonary embolus, COPD, GERD,SChizophre freddy unspecified, Kyphosis, Parkinson disease, Severe intellectualdisabilities, contrac tures, and generalized muscle weakness.He was admitted for acute hypoxemic respiratory failure. He is s/p tracestomyand in progress of weaning tolerating T- tube, NOAH.Admit Date: 04/19/2019Active Problems: Pneumonia (11/08/2018) Acute hypoxemic respiratory failure (HCC) (03/25/2019) COPD with acute exacerbation (HCC) (04/19/2019) Acute on chronic respiratory failure with hypoxia and hypercapnia (HCC)(04/19/2019) Scrotal torsten h (04/21/2019)Subjective:Patient none..Pertinent items are noted in the H istory of Present Illness.Alert on ventObjective:Visit VitalsBP 101/69Pulse 64Temp (!) 100.8 F (38.2 C)Resp 15Ht 5' 2" (1.575 m)Wt 54.9 kg (121 lb 0.5 oz)SpO2 98%BMI 22.14 kg/m No Known AllergiesCurrent Facility-Administered MedicationsMedicat ion Dose Route Frequency metoprolol tartrate (LOPRESSOR) tablet 25 mg 25 mg Per J Tu be BID metoprolol (LOPRESSOR) injection 5 mg 5 mg IntraVENous Q6H PRN LORazepam (AT MATTHEW) injection 1 mg 1 mg IntraVENous QHS vits A and D-white pet-lanolin (A&D) oin tment Topical PRN methylPREDNISolone (PF) (SOLU-MEDROL) injection 40 mg 40 mg Int raVENous Q12H vancomycin 50 mg/mL oral solution (compounded) 125 mg 125 mg Per G Tube Q6H meropenem (MERREM) 500 mg in 0.9% sodium chloride (MBP/ADV) 50 mL MBP 0.5 gIntraVENous Q12H lamoTRIgine (LaMICtal) tablet 100 mg 100 mg Per G T ube QPM lamoTRIgine (LaMICtal) tablet 50 mg 50 mg Per G Tube DAILY sodium chloride (NS) flush 5-40 mL 5-40 mL IntraVENous PRN pantoprazole (PROTONIX) 40 mg in 0.9% so dium chloride 10 mL injection 40 mgIntraVENous DAILY acetaminophen (TYLE NOL) tablet 650 mg 650 mg Oral Q6H PRN ondansetron (ZOFRAN) injection 4 mg 4 m g IntraVENous Q6H PRN albuterol-ipratropium (DUO-NEB) 2.5 MG-0.5 MG/3 ML 3 mL Nebul ization Q6HWA RT acetylcysteine (MUCOMYST) 100 mg/mL (10 %) nebulizer solution 400 mg 4 mLInhalation TID RT miconazole (MICOTIN) 2 % cream Topical BID budes onide (PULMICORT) 500 mcg/2 ml nebulizer suspension 500 mcg NebulizationBID RT cinacalcet (SENSIPAR) tablet 60 mg 60 mg Oral DAILY heparin (porcine) injection 5,000 Units 5,000 Units SubCUTAneous [id number] Exam:Physical Exam:General: Alert, cooperative, no distress, on ventEyes: Conjunctivae/corneas clear, O S iridectomy?.EOMs intact.Mouth/Throat: Lips, mucosa, and tongue normal.Neck: Supple, symmetrical, trachea midline, no adenopathy, thyroid: noenlargement/tenderness/nodule s, no carotid bruit and no JVD.Lungs: Mainly clear to auscultation bilaterally .Heart: Regular rate and rhythm, S1, S2 normal, no murmur, click, rub or gallop. Abdomen: Soft, non-tender. G tube and J tube sites clean, Bowel sounds normal.Ex tremities: Extremities contracted, no cyanosis or edema,Pulses: 1+ and symmetr ic all extremities.Skin: Skin color, texture, turgor normal. No rashes or lesionsLymph nodes: Anterior Cervical Lymph nodes normalNeurologic: Cranial nerve assessme nt limited due to intubation.CNII-XII grosslyintactData Review:Labs: Results:C hemistry Recent Labs 05/04/2003GLU -- 156* -- 116* -- 80NA -- 147* -- 147* -- 146*K -- 3.7 -- 3.8 -- 4.0CL -- 110* -- 109* -- 109*CO2 37* 33* 36* 34* < > 35*BUN -- 43* -- 42* -- 43*CREA -- 2.12* -- 1.99* -- 1.79*CA -- 10.1 -- 10.1 -- 9.8AGAP -- 8* -- 8* -- 6*AP -- 66 -- 64 -- 62TP -- 6.4 -- 6.6 -- 6.0*ALB -- 2.2* -- 2.2* -- 2.0*GLOB -- 4.2 -- 4.4 -- 4.0AGRAT -- 0.5* -- 0.5* -- 0.5* < > = values in this interval not displayed.CBC w/Diff Recent Labs 05/03/2003WBC 8.8 10.3 16.1*RBC 2.83* 3.00* 3.08*HGB 8.7* 9.1* 9.4*HCT 27.9* 29.3* 30.1*PLT 452* 523* 551*GRANS 88* 88* 89* LYMPH 8* 8* 7*EOS 0 0 0Cardiac Enzymes No results for input(s): CPK, CKND1, NESTOR in the last 72 hours.No lab exists for component: CKRMB, TROIPCoagulation No re sults for input(s): PTP, INR, APTT, INREXT, INREXT in the last72 hours.Lipid Panel L ab ResultsComponent Value Date/Time Cholesterol, total 156 03/12/2019 06:50 AM HDL Cholesterol 71 03/12/2019 06:50 AM LDL, calculated 65.6 03/12/2019 06:50 AM VLDL, calculated 19.4 03/12/2019 06:50 AM Triglyceride 97 03/12/2019 06:50 AM CHOL /HDL Ratio 2.2 03/12/2019 06:50 AMBNP No results for input(s): BNPP in the last 7 2 hours.Liver Enzymes Recent Labs 05/04/200312TP 6.4ALB 2.2*AP 66SGOT 9*Th yroid Studies Lab ResultsComponent Value Date/Time TSH 2.990 04/23/2019 07:19 AMI ntake and Output:Intake/Output Summary (Last 24 hours) at 05/04/2019 1010Last data yoshi ed at 05/04/2019 0619Gross per 24 hourIntake 1310 mlOutput 1950 mlNet -640 mlImaging: Xr Chest Sngl VResult Date: 05/04/2019History: Respiratory difficulty. FINDINGS: A fron krystian portable view of the chestis compared to the prior study of the previous date. Th e tracheostomy tube andEKG leads are unchanged. The cardiac silhouette is nor mal in size. Evaluation ofthe lungs and mediastinal structures reveals continued minimal blunting of theleft costophrenic angle. There remains some density in the medial right lungbase. Mediastinal and hilar structures are unremarkable. When differ ences inprojection and technique are taken into account these findings may be simil ar.IMPRESSION: Findings similar to that seen previously.Impression/Plan:Active Hospit al Problems Diagnosis Date Noted Scrotal rashLocal antifungal tx 04/21/2019 COPD with acute exacerbation (HCC) 04/19/2019 Acute on chronic respiratory failure wit h hypoxia and hypercapnia (HCC)04/19/2019 Acute hypoxemic respiratory failure (HCC )Vent supportIs s/p tracheostomyCont weaning to T tube as toleratedFailed CPAP trial - placed back on vent 03/25/2019 PneumoniaStill febrile 100.8MeropenemMuc omystDuonebWBC 16--> 10--> 8.8AKIGentle hydrationBUN/Creat 42/1.9--> 43/2.12Hold diuretics with increased creatinineDysphagiaJ tube for nutritionG tube for stomach decompression 11/08/2018Continue ICU level care for no Nayan Aquino 2019~ 10-11 amICU level care with interactions with consul tants and nursing Name Value Range Interpretation Code Description Data Harriett rce(s) Supporting Document(s ) ID Date Data Source [id number] 05/04/2019 10:05:26 AM [facility] TRANSFER - IN REPORT:Verbal report recei nathaly from carole RN(name) on Evelio Carlin beingreceived from CCU(unit) for routine progression of careReport consisted of patient's Situation, Backgr ound, Assessment andRecommendations(SBAR).Information fro m the following report(s) SBAR, Kardex, ED Summary, ProcedureSummary, MAR, Recent R esults, Med Rec Status and Cardiac Rhythm NSR was reviewedwith the receiving nurse.[place] ortunity for questions and clarification was provided.Assessment completed upon patie nt's arrival to unit and care assumed. Name Value Range Interpretation Code Description Data Harriett rce(s) Supporting Document(s ) ID Date Data Source [id number] 05/04/2019 08:59:25 AM [facility] Pt not sandhya PSV and RN placed back on pre vious settings Name Value Range Interpretation Code Description Data Harriett rce(s) Supporting Document(s ) ID Date Data Source [id number] 05/04/2019 08:52:09 AM [facility] Progress NoteEvelio Carlin68 y.o.Adm it Date: 04/19/2019Active Problems: Pneumonia (11/08/2018) Acute hypoxemic respiratory failure (HCC) (03/25/2019) COPD with acute exacerbation (HCC) (04/19/2019) Acute on chronic respiratory failure with hypoxia and hypercapnia (HCC)(04/19/2019) Scrotal torsten h (04/21/2019)Subjective:s/p TrachhypotensivePertinent items are note d in the History of Present Illness.Objective:Visit VitalsBP 123/83P ulse 83Temp (!) 100.8 F (38.2 C)Resp 16Ht 5' 2" (1.575 m)Wt 54.9 kg (121 lb 0.5 oz )SpO2 99%BMI 22.14 kg/m Intake and Output:Date 05/03/19 0700 - 05/04/19 065 9 05/04/19 0700 - 05/05/19 0659Shift 8368-0594 8543-6802 24 Hour Total 0700-1 859 3319-9568 24 Hour TotalINTAKEI.V.(mL/kg/hr) 50(0.1) 50(0) Volume (meropenem (MERREM) 500 mg in 0.9% sodium chloride (MBP/ADV) 50 mL MBP)50 50NG/GT 156 234 3386 Water Flush Volume (mL) (G/J Tube) 290 200 490 Medication Volum e (G/J Tube) 100 100 Intake (ml) (G/J Tube) 340 540 880Shift Total(mL/kg) 780(14.4) 740(13.5) 1520(27.7)OUTPUTUrine(mL/kg/hr) 850(1.3) 350(0.5) 1200(0.9) Urine Outpu t (mL) (Condom Catheter 05/02/19) 850 350 1200Emesis/NG output 250 400 650 Output (ml) (PEG/Gastrostomy Tube) 250 400 650Drains 100 100 Output (ml) (Fecal M anagement) 100 100Shift Total(mL/kg) 1200(22.1) 750(13.7) 1950(35.5)NET -420 -10 -430Weight (kg) 54.2 54.9 54.9 54.9 54.9 54.9Medications Reviewed:Current Facilit y-Administered MedicationsMedication Dose Route Frequency Provider Last Rate Last Dose metoprolol tartrate (LOPRESSOR) tablet 25 mg 25 mg Per J Tube BID Shyla León MD 25 mg at 05/04/19 0845 metoprolol (LOPRESSOR) injection 5 mg 5 mg IntraVE Nous Q6H PRN Sotero León MD LORazepam (ATIVAN) injection 1 mg 1 mg IntraVENou s QHS Krystian Monae MD 1mg at 05/03/19 2123 vits A and D-white pet-lanolin (A& D) ointment Topical PRN Laura Mills MD methylPREDNISolone (PF) (S CHEN-MEDROL) injection 40 mg 40 mg IntraVENous [id number] gonzales MD 40 mg at 05/04/19 0846 vancomycin 50 mg/mL oral solution (compounded) 125 mg 125 mg Per G Tube [id number] gonzales MD 125 mg at 05/04/19 0509 meropenem (MERREM) 500 mg in 0.9% sodium chloride (MBP/ADV) 50 mL MBP 0.5 gIntraVENous Q1 2H Kareen Mills MD 16.7 mL/hr at 05/03/19 2122 500 mg at05/03/19 2122 la moTRIgine (LaMICtal) tablet 100 mg 100 mg Per G Tube QPM Laura Mills MD 100 mg at 05/03/19 1744 lamoTRIgine (LaMICtal) tablet 50 mg 50 mg Per G Tub e DAILY Laura Mills MD 50 mg at 05/04/19 0846 sodium chloride (NS) flus h 5-40 mL 5-40 mL IntraVENous PRN Laura Mills MD pantoprazole (PROTONIX) 40 mg in 0.9% sodium chloride 10 mL injection 40 mgIntraVENous DAILY Juan Diego Mills MD 40 mg at 05/04/19 0845 acetaminophen (TYLENOL) tablet 650 mg 6 50 mg Oral Q6H PRN Laura Mills MD 650 mg at 05/04/19 0515 ondansetron (ZO ANABELLE) injection 4 mg 4 mg IntraVENous Q6H PRN Kareen Mills MD albuterol-i pratropium (DUO-NEB) 2.5 MG-0.5 MG/3 ML 3 mL Nebulization Q6HWA RTKareen Mills MD 3 mL at 05/04/19 0829 acetylcysteine (MUCOMYST) 100 mg/mL (10 %) nebulizer so lution 400 mg 4 mLInhalation TID RT Kareen Mills MD 400 mg at 0828 miconazole (MICOTIN) 2 % cream Topical BID Kareen Mills MD bu desonide (PULMICORT) 500 mcg/2 ml nebulizer suspension 500 mcg NebulizationBID RT L Kareen gonzales MD 500 mcg at 05/04/19 0828 cinacalcet (SENSIPAR) tablet 60 mg 60 mg Oral DAILY Kareen Mills MD60 mg at 05/04/19 0845 heparin (porcine) i njection 5,000 Units 5,000 Units SubCUTAneous [id number] gonzales M D 5,000 Units at 05/04/19 0508Physical Exam:Physical Exam:AlertS1 s2 tachyResp: decreased BSAbd: softExt: LUE edema +LE edema+Data Review:Recent Results (from t he past 24 hour(s))MAGNESIUM Collection Time: 05/04/19 4:12 AMResult Value Ref Range Magnesium 2.7 (H) 1.6 - 2.6 mg/dLCBC WITH AUTOMATED DIFF Collection Time: 05/04/19 4:12 AMResult Value Ref Range WBC 8.8 4.8 - 10.6 K/uL RBC 2.83 (L) 4.70 - 6.00 M/uL HGB 8.7 (L) 14.0 - 18.0 g/dL HCT 27.9 (L) 42.0 - 52.0 % MCV 98.6 (H) 81.0 - 94.0 F L MCH 30.7 27.0 - 35.0 PG MCHC 31.2 30.7 - 37.3 g/dL RDW 18.3 (H) 11.5 - 14.0 % JOCELYN TELET 452 (H) 130 - 400 K/uL MPV 9.9 9.2 - 11.8 FL NRBC 0.0 0 PER 100 WBC ABSOLUTE NRBC 0.00 0.0 - 0.01 K/uL NEUTROPHILS 88 (H) 48.0 - 72.0 % LYMPHOCYTES 8 (L) 18.0 - 4 0.0 % MONOCYTES 4 2.0 - 12.0 % EOSINOPHILS 0 0.0 - 7.0 % BASOPHILS 0 0.0 - 3.0 % BRADLEY TURE GRANULOCYTES 1 (H) 0 - 0.5 % ABS. NEUTROPHILS 7.7 (H) 2.3 - 7.6 K/UL ABS. LYMPHOCYTES 0.7 (L) 0.9 - 4.2 K/UL ABS. MONOCYTES 0.4 0.1 - 1.7 K/UL ABS. EOSINO PHILS 0.0 0.0 - 1.0 K/UL ABS. BASOPHILS 0.0 0.0 - 0.4 K/UL ABS. IMM. GRANS. 0.0 0.0 - 0.17 K/UL DF AUTOMATEDMETABOLIC PANEL, COMPREHENSIVE Collection Time: 05/04/19 4:12 AMResult Value Ref Range Sodium 147 (H) 136 - 145 mmol/L Potassium 3.7 3.5 - 5.1 mmol/L Chloride 110 (H) 98 - 107 mmol/L CO2 33 (H) 21 - 32 mmol/L Anion gap 8 (L) 10 - 20 mmol/L Glucose 156 (H) 74 - 106 mg/dL BUN 43 (H) 7 - 18 mg/dL Creatinine 2.12 (H) 0.70 - 1.30 mg/dL GFR est AA 40 (L) >60 ml/min/1.73m2 GFR est non-AA 33 (L) >60 ml/min/1.73m2 Calcium 10.1 8.5 - 10.1 mg/dL Bilirubin, total 0.3 0.2 - 1.0 mg/dL ALT (SGPT) 8 (L) 13 - 61 U/L AST (SGOT) 9 (L) 15 - 37 U/L Alk. phosphatase 66 45 - 117 U/ L Protein, total 6.4 6.4 - 8.2 g/dL Albumin 2.2 (L) 3.5 - 4.7 g/dL Globulin 4.2 1.7 - 4.7 g/dL A-G Ratio 0.5 (L) 0.7 - 2.8BLOOD GAS, ARTERIAL Collection Time: 05/04/19 5:49 AMResult Value Ref Range pH 7.55 (H) 7.35 - 7.45 PCO2 41 32 - 48 mmHg PO2 84 83 - 108 mmHg CO2, TOTAL 37 (H) 19 - 24 mmol/L BICARBONATE 36 (H) 21 - 28 mmol/L O2 SAT 99 (H) 94 - 98 % BASE EXCESS 12.3 (H) 0 - 3 mmol/L SITE LEFT RADIAL MIRANDA'S TE ST POSITIVE DEVICE VENTILATOR FIO2 40.0 % MODE Pressure regulated volume control P EEP/CPAP 5 Tidal volume 400 RATE 15 Performed by [id number]:Xr Chest Sngl VResult Da te: 05/04/2019History: Respiratory difficulty. FINDINGS: A frontal portable view of the chestis compared to the prior study of the previous date. The tracheostomy tube and EKG leads are unchanged. The cardiac silhouette is normal in size. Evaluation ofthe lungs and mediastinal structures reveals continued minimal blunting of th eleft costophrenic angle. There remains some density in the medial right lungbase. Me diastinal and hilar structures are unremarkable. When differences inproject ion and technique are taken into account these findings may be similar.IMPRESSION : Findings similar to that seen previously.Impression:Active Hospital Pr oblems Diagnosis Date Noted Scrotal rash 04/21/2019 COPD with acute exacerbation (HCC) 04/19/2019 Acute on chronic respiratory failure with hypoxia and hyp ercapnia (HCC)04/19/2019 Acute hypoxemic respiratory failure (HCC) 03/25/2019 Pn eumonia 11/08/2018 NOAH. S/p trach HypernatremiaPlan:DC LasixAdd free water 100ml every 4 hoursFollow up labsD/c Kailey Frankel MDJanuary 2019 Name Value Range Interpretation Code Description Data Harriett rce(s) Supporting Document(s ) ID Date Data Source [id number] 05/04/2019 08:04:54 AM EST [facility] History:Respiratory difficulty.FINDINGS: A frontal portable view of the chest is compared [facility].The tracheostomy tube and EKG leads are unchanged.The cardiac silhouette is normal in size. Evaluation of the lungs andmediastinal structures reveals contin ued minimal blunting of the leftcostophrenic angle. There remains some density in the medial right lung base.Mediastinal and hilar structures are unremarkable. When differ ences inprojection and technique are taken into account these findings may be simil ar.IMPRESSION:Findings similar to that seen previously. Signing date/time: 05/04/2019 8:04 AMSigned by: SAMIR RENTERIA Name Value Range Interpretation Code Description Data [facility] rce(s) Supporting Document(s ) ID Date Data Source [id number] 05/04/2019 07:27:41 AM EST [facility] Bedside and Verbal shift change report g ellynen to Carole RN (oncoming nurse)by Danial PITTS (offgoing nurse). Report inclu ded the following information SBAR,Kardex, Intake/Output, MAR, Recent Results, Med Rec Status, Cardiac Rhythm NSRand Alarm Parameters . Name Value Range Interpretation Code Description Data [facility] rce(s) Supporting Document(s ) ID Date Data Source [id number] 05/04/2019 07:02:29 AM EST [facility] Temp was 100.8 F @ 0515; Tylenol 650 mg given via Jtube. See MAR Name Value Range Interpretation Code Description Data [facility] rce(s) Supporting Document(s ) ID Date Data Source [id number] 05/04/2019 06:54:57 AM EST [facility] Name Value Range Interpretation Description Data Sup porting Code Source(s) Document(s ) pH of Arterial 7.55 7.35-7.4 Above high normal [facility] - Good blood [address] [place] [address] Carbon dioxide 41 mmHg 32-48 [facility] - Good [Partial Taoist pressure] in Hospital Arterial blood Oxygen 84 mmHg 83-108 [facility] - Good [Partial Taoist pressure] in Hospital Arterial blood Carbon 37 19-24 Above high normal [facility] - Good dioxide, total mmol/L Taoist [Moles/volume] Hospital in Arterial blood Bicarbonate 36 21-28 Above high normal [facility] - Go od [Moles/volume] mmol/L Taoist in Arterial Hospital blood Oxygen 99 % 94-98 Above high normal [facility] Good saturation in [facility] Base excess in 12.3 0-3 Above high normal [facility] - Good Arterial blood mmol/L Taoist by calculation Hospital Body site [facility] - Good [facility] Arterial [facility] - Good patency Wrist Taoist artery --pre Hospital arterial puncture Oxygen gas [facility] - Good flow Oxygen [facility] system Oxygen/Inspire 40.0 % [facility] - Good d gas [facility] system --on ventilator Ventilation [facility] - Good mode Taoist [Identifier] [facility] Ventilator PEEP 5 [facility] - Good Respiratory Taoist system Hospital Tidal volume 400 [facility] - Good setting Taoist Ventilator Hospital Respiratory 15 [facility] - Good rate [facility] Service [address] [facility] - Good comment [facility] ID Date Data Source [id number] 05/04/2019 05:45:48 AM EST [facility] Name Value Range Interpretation Description Data Sup porting Code Source(s) Document(s ) Leukocytes 8.8 K/uL 4.8-10.6 [facility] - [#/volume] in Good Blood by Taoist Automated count [facility] Erythrocytes 2.83 4.70-6.0 Below low normal [facility] - [#/volume] in M/uL 0 Good Blood by Taoist Automated count [facility] Hemoglobin 8.7 g/dL 14.0-18. Below low normal [facility] - [Mass/volume] in 0 Good Blood [facility] Hematocrit 27.9 % 42.0-52. Below low normal [facility] - [Volume 0 Good Fraction] of Taoist Blood by Hospital Automated count Erythrocyte mean 98.6 FL 81.0-94. Above high normal [facility] - corpuscular 0 Good volume [Entitic Taoist volume] by Hospital Automated count Erythrocyte mean 30.7 PG 27.0-35. [facility] - corpuscular 0 Good hemoglobin Taoist [Entitic mass] [facility] by Automated count Erythrocyte mean 31.2 30.7-37. [facility] - corpuscular g/dL 3 Good hemoglobin [facility] [Mass/volume] by Automated count Erythrocyte 18.3 % 11.5-14. Above high normal [facility] - distribution 0 Good width [Ratio] by Taoist Automated count [facility] Platelets 452 K/uL 130-400 Above high normal [facility] - [#/volume] in Good Blood by Taoist Automated count Hospital Platelet mean 9.9 FL 9.2-11.8 [facility] - volume [Entitic Good volume] in [facility] by Automated Hospital count Nucleated 0.0 PER 0 [facility] - erythrocytes/100 100 WBC Good leukocytes Taoist [Ratio] in Blood [facility] Nucleated 0.00 0.0-0.01 [facility] - erythrocytes K/uL Good [#/volume] in [facility] Segmented 88 % 48.0-72. Above high normal [facility] - neutrophils/100 0 Good leukocytes in [facility] Lymphocytes/100 8 % 18.0-40. Below low normal [facility] - leukocytes in 0 [facility] Monocytes/100 4 % 2.0-12.0 [facility] - leukocytes in [facility] Eosinophils/100 0 % 0.0-7.0 [facility] - leukocytes in [facility] Basophils/100 0 % 0.0-3.0 [facility] - leukocytes in [facility] Immature 1 % 0-0.5 Above high normal [facility] - granulocytes/100 Good leukocytes in [facility] by Hospital Automated count Segmented 7.7 K/UL 2.3-7.6 Above high normal [facility] - neutrophils Good [#/volume] in [facility] Lymphocytes 0.7 K/UL 0.9-4.2 Below low normal [facility] - [#/volume] in [facility] Monocytes 0.4 K/UL 0.1-1.7 [facility] - [#/volume] in [facility] Eosinophils 0.0 K/UL 0.0-1.0 [facility] - [#/volume] in [facility] Basophils 0.0 K/UL 0.0-0.4 [facility] - [#/volume] in [facility] Immature 0.0 K/UL 0.0-0.17 [facility] - granulocytes Good [#/volume] in [facility] by Hospital Automated count Differential [facility] - cell count Good method [facility] ID Date Data Source [id number] 05/04/2019 05:10:06 AM EST [facility] Name Value Range Interpretation Description Data Sup porting Code Source(s) Document(s ) Sodium 147 136-145 Above high [facility] - [Moles/volume] in mmol/L normal Good Serum or Plasma [facility] Potassium 3.7 3.5-5.1 [facility] - [Moles/volume] in mmol/L Good Serum or Plasma [facility] Chloride 110 98-107 Above high [facility] - [Moles/volume] in mmol/L normal Good Serum or Plasma [facility] Carbon dioxide, 33 21-32 Above high [facility] - total mmol/L normal Good [Moles/volume] in Taoist Serum or Plasma Hospital Anion gap in Serum 8 10-20 Below low normal [facility] - or Plasma mmol/L [facility] Glucose 156 74-106 Above high [facility] - [Mass/volume] in mg/dL normal Good Serum or Plasma [facility] Urea nitrogen 43 7-18 Above high [facility] - [Mass/volume] in mg/dL normal Good Serum or Plasma [facility] Creatinine 2.12 0.70-1. Above high [facility] - [Mass/volume] in mg/dL 30 normal Good Serum or Plasma [facility] Glomerular 40 >60 Below low normal [facility] - filtration ml/min/ Good rate/1.73 sq M 1.73m2 Taoist predicted among Hospital blacks [Volume Rate/Area] in Serum or Plasma by Creatinine-based formula (MDRD) Glomerular 33 >60 Below low normal [facility] - filtration ml/min/ Good rate/1.73 sq M 1.73m2 Taoist predicted among Hospital non-blacks [Volume Rate/Area] in Serum or Plasma by Creatinine-based formula (MDRD) Calcium 10.1 8.5-10. [facility] - [Mass/volume] in mg/dL 1 Good Serum or Plasma [facility] Bilirubin.total 0.3 0.2-1.0 [facility] - [Mass/volume] in mg/dL Good Serum or Plasma [facility] Alanine 8 U/L 13-61 Below low normal [facility] - aminotransferase Good [Enzymatic Taoist activity/volume] in Hospital Serum or Plasma Aspartate 9 U/L 15-37 Below low normal [facility] - aminotransferase Good [Enzymatic Taoist activity/volume] in Hospital Serum or Plasma by With P-5'-P Alkaline 66 U/L 45-117 [facility] - phosphatase Good [Enzymatic Taoist activity/volume] in Hospital Serum or Plasma Protein 6.4 6.4-8.2 [facility] - [Mass/volume] in g/dL Good Serum or Plasma [facility] Albumin 2.2 3.5-4.7 Below low normal [facility] - [Mass/volume] in g/dL Good Serum or Plasma by [facility]) dye binding method Globulin 4.2 1.7-4.7 [facility] - [Mass/volume] in g/dL Good Serum by [facility] Albumin/Globulin 0.5 0.7-2.8 Below low normal [facility] - [Mass Ratio] in Good Serum or Plasma [facility] ID Date Data Source [id number] 05/04/2019 05:10:06 AM EST [facility] Name Value Range Interpretation Description Data Sup porting Code Source(s) Document(s ) Magnesium 2.7 mg/dL 1.6-2.6 Above high normal [facility] [Mass/volume] Taoist in Serum or Hospital Plasma ID Date Data Source [id number] 05/03/2019 08:21:13 PM EST [facility] Critical Care Progress N [facility]Krystian Monae MD., F.C.C.P.Stella Hamiltno MD., F.C.C.P. 9W [address] [facility] [address] [place] [address] [place] [address] Name: Evelio JohnsoninDOB: 1950MRN: [id number]: 05/03/2019Subjective:Mr. Carlin is a 68 y.o. year old male who is being see n for ACUTERESPIRATORY FAILURE . PATIENT DID NOT TOLERATE WEANING , HE ARVIND ME VERY SODV WITH RR > 40 /M,T AT NID NIGHT , NEEDED TO BE ATTACHED TO VENTI LATOR AGAIN , NOWCOMFORTABLE AND IS MORE AWAKE . 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) Pneumoni a Psychiatric disorder schizophrenia Pulmonary emboli (HCC) Schizophrenia (H CC)Allergy:No Known AllergiesVital Signs:Patient Vitals for the past 24 hrs : BP Temp Pulse Resp SpO2 Vytaov57/19/20 2000 108/54 99.5 F (37.5 C) 92 16 97 % - 1900 129/63 99.3 F (37.4 C) 93 21 98 % -05/03/19 1800 123/80 - 93 22 93 % - 1729 - - 90 13 98 % -05/03/19 1700 90/53 - 93 26 94 % -05/03/19 1600 (!) 13 - 99 24 93 % -05/03/19 1500 129/54 99.3 F (37.4 C) 90 17 96 % -05/03/19 1400 10 5/65 99.3 F (37.4 C) 83 25 98 % -05/03/19 1355 - - 84 17 100 % -05/03/19 1300 107/ 50 99.5 F (37.5 C) 75 15 97 % -05/03/19 1200 107/78 99.5 F (37.5 C) 79 15 97 % -05/03/19 1100 108/54 99.5 F (37.5 C) 76 16 96 % -05/03/19 1030 119/61 99.7 F (3 7.6 C) 74 24 96 % -05/03/19 1000 (!) 85/48 99.9 F (37.7 C) 75 20 96 % -05/03/19 0 900 134/80 - (!) 110 24 99 % -05/03/19 0841 - - (!) 104 (!) 95 95 % -05/03/19 0800 142 /81 100.2 F (37.9 C) 98 16 95 % -05/03/19 0700 132/72 - 99 19 94 % -05/03/19 0600 148/64 - 93 22 96 % -05/03/19 0500 (!) 168/118 - 98 15 94 % -05/03/19 0400 118/ 71 99.9 F (37.7 C) 96 29 - 54.2 kg (119 lb 7.8 oz)05/03/19 0300 119/84 - 85 15 94 % -05/03/19 0200 101/49 - 89 15 90 % -05/03/19 0143 - - 92 15 95 % -05/03/19 0100 125/6 0 - 94 (!) 43 100 % -05/03/19 0000 (!) 134/92 99.9 F (37.7 C) 98 23 100 % -05/02/19 2300 122/72 - 95 27 (!) 89 % -05/02/19 2200 141/81 - 98 22 100 % -05/02/19 2100 (!) 133/109 - 89 24 97 % -Pulse OX:SpO2 Readings from Last 6 Encounters:05/03/19 97%04/16 100%04/06/19 99%03/17/19 92%02/19/19 96%02/18/19 92%@LASTSAO2(6)@Intake/Outpu t:Last shift: No intake/output data recorded.Last 3 shifts: 05/02 0701 - 1900In: 1210 [I.V.:150]Out: 2975 [Urine:2275; Drains:100]Intake/Output Lemus mmary (Last 24 hours) at 05/03/2019 2014Last data filed at 05/03/2019 1800Gross per 24 hourIntake 1020 mlOutput 2125 mlNet -1105 mlHemodynamics:.@MAP.@CVPVentilator Sett ings:Ventilator Mode: Pressure supportRespiratory RateBack-Up Rate: 15I nsp Time (sec): 0.9 secI:E Ratio: 1:3Ventilator VolumesVt Set (ml): 400 ml Vt Exhaled (Machine Breath) (ml): 320 mlVt Spont (ml): 327 mlVe Observed (l/min): 6 l/minVentilator PressuresPressure Support (cm H2O): 10 cm H2OPIP Observed (cm H2O) : 16 cm H2OMAP (cm H2O): 8PEEP/VENT (cm H2O): 5 cm [id number] PEEP Observed (cm H2O): 2.3 cm L5ESaif Rate Tidal Volume Pressure FiO2 PEEPPressure support 400 ml 10 cm H2O 40 % 5 cm R55Erbd airway pressure: 16 cm V9CNlfelk ventilation: 6 l/minARDS netwo rk Guidelines: Lung protective strategy and Pl pressure goals 16CMS less than or equal to 30Physical Exam: General: Alert, cooperative, MILD RESPIRATORY distress, appearsstated age. Head: Normocephalic, without obvious a bnormality, atraumatic. Eyes: Conjunctivae/corneas clear. PERRL, EOMs intact. Nose: Nares normal. No drainage or sinus tenderness Thr oat: Lips, mucosa, and tongue normal Neck: Supple, symmetrical, trachea midline, no adenopathy,thyroid: no enlargement/tenderness/nodules, no carot id bruit and no JVD. Lungs: WHEEZING AND RALES + R L L AND L L L , RHONCHI toauscultation bilaterally. Chest Wall: No tenderness or deformity. Heart: Regular rate and rhythm, S1, S2 normal, no murmur, click,rub or nettles p. Abdomen: Soft, non-tender. Bowel sounds normal. No masses, No organomeg edison. Extremities: Extremities normal, atraumatic, no cyanosis or +3 edema. Pulses: 4+ bilaterally Skin: Skin color, texture, turgor norm al. No rashes or lesions. Neurologic: CNII-XII intact. No focal motor or senso ry deficit.DATA:Current Facility-Administered MedicationsMedication Dose Route Frequen cy metoprolol tartrate (LOPRESSOR) tablet 25 mg 25 mg Per J Tube BID metoprolol (LO PRESSOR) injection 5 mg 5 mg IntraVENous Q6H PRN LORazepam (ATIVAN) injection 1 mg 1 mg IntraVENous QHS vits A and D-white pet-lanolin (A&D) ointment Topical PRN methylPREDNISolone (PF) (SOLU-MEDROL) injection 40 mg 40 mg IntraVENous Q12H vancomycin 50 mg/mL oral solution (compounded) 125 mg 125 mg Per G Tube Q 6H meropenem (MERREM) 500 mg in 0.9% sodium chloride (MBP/ADV) 50 mL MBP 0.5 gIntra VENous Q12H lamoTRIgine (LaMICtal) tablet 100 mg 100 mg Per G Tube QPM lamoTRIgi ne (LaMICtal) tablet 50 mg 50 mg Per G Tube DAILY sodium chloride (NS) flush 5-40 m L 5-40 mL IntraVENous PRN pantoprazole (PROTONIX) 40 mg in 0.9% sodium chloride 10 mL injection 40 mgIntraVENous DAILY acetaminophen (TYLENOL) tablet 650 mg 6 50 mg Oral Q6H PRN ondansetron (ZOFRAN) injection 4 mg 4 mg IntraVENous Q6H PRN albuterol-ipratropium (DUO-NEB) 2.5 MG-0.5 MG/3 ML 3 mL Nebulization Q6HWA RT joan tylcysteine (MUCOMYST) 100 mg/mL (10 %) nebulizer solution 400 mg 4 mLInhalatio n TID RT miconazole (MICOTIN) 2 % cream Topical BID budesonide (PULMICORT) 500 mcg/2 ml nebulizer suspension 500 mcg NebulizationBID RT cinacalcet (SENSIPAR ) tablet 60 mg 60 mg Oral DAILY heparin (porcine) injection 5,000 Units 5,000 U nits SubCUTAneous T43VAzinztomw: [x]Sinus []A-flutter []Paced []A-fib []Multiple P VC'sLabs:Recent Results (from the past 24 hour(s))MAGNESIUM Collection Time: 05/03 4:15 AMResult Value Ref Range Magnesium 2.4 1.6 - 2.6 mg/dLCBC WITH AUTOMATED DI FF Collection Time: 05/03/19 4:15 AMResult Value Ref Range WBC 10.3 4.8 - 10.6 K/uL RBC 3.00 (L) 4.70 - 6.00 M/uL HGB 9.1 (L) 14.0 - 18.0 g/dL HCT 29.3 (L) 42.0 - 52. 0 % MCV 97.7 (H) 81.0 - 94.0 FL MCH 30.3 27.0 - 35.0 PG MCHC 31.1 30.7 - 37.3 g/dL RDW 17.9 (H) 11.5 - 14.0 % PLATELET 523 (H) 130 - 400 K/uL MPV 9.8 9.2 - 11.8 FL NRBC 0. 0 0 PER 100 WBC ABSOLUTE NRBC 0.00 0.0 - 0.01 K/uL NEUTROPHILS 88 (H) 48.0 - 72.0 % LY MPHOCYTES 8 (L) 18.0 - 40.0 % MONOCYTES 3 2.0 - 12.0 % EOSINOPHILS 0 0.0 - 7.0 % BASOP HILS 0 0.0 - 3.0 % IMMATURE GRANULOCYTES 0 0 - 0.5 % ABS. NEUTROPHILS 9.1 (H) 2.3 - 7 .6 K/UL ABS. LYMPHOCYTES 0.8 (L) 0.9 - 4.2 K/UL ABS. MONOCYTES 0.3 0.1 - 1.7 K/UL A BS. EOSINOPHILS 0.0 0.0 - 1.0 K/UL ABS. BASOPHILS 0.0 0.0 - 0.4 K/UL ABS. IMM. G RANS. 0.0 0.0 - 0.17 K/UL DF AUTOMATEDMETABOLIC PANEL, COMPREHENSIVE Collection Time: 05/03/19 4:15 AMResult Value Ref Range Sodium 147 (H) 136 - 145 mmol/L Potassium 3.8 3.5 - 5.1 mmol/L Chloride 109 (H) 98 - 107 mmol/L CO2 34 (H) 21 - 32 mmol/L Anion gap 8 (L) 10 - 20 mmol/L Glucose 116 (H) 74 - 106 mg/dL BU N 42 (H) 7 - 18 mg/dL Creatinine 1.99 (H) 0.70 - 1.30 mg/dL GFR est AA 43 (L) >60 ml/min/1.73m2 GFR est non-AA 36 (L) >60 ml/min/1.73m2 Calcium 10.1 8.5 - 10.1 mg /dL Bilirubin, total 0.6 0.2 - 1.0 mg/dL ALT (SGPT) 13 13 - 61 U/L AST (SGOT) 16 15 - 37 U/L Alk. phosphatase 64 45 - 117 U/L Protein, total 6.6 6.4 - 8.2 g/dL Albumi n 2.2 (L) 3.5 - 4.7 g/dL Globulin 4.4 1.7 - 4.7 g/dL A-G Ratio 0.5 (L) 0.7 - 2.8PHOS PHORUS Collection Time: 05/03/19 4:15 AMResult Value Ref Range Phosphorus 3.2 2.5 - 4.9 mg/dLBLOOD GAS, ARTERIAL Collection Time: 05/03/19 5:56 AMResult Value Ref Range pH 7.54 (H) 7.35 - 7.45 PCO2 41 32 - 48 mmHg PO2 56 (L) 83 - 108 mmHg CO2, TOTAL 36 (H) 19 - 24 mmol/L BICARBONATE 35 (H) 21 - 28 mmol/L O2 SAT 91 (L) 94 - 98 % BASE EXCESS 11.4 (H) 0 - 3 mmol/L SITE RIGHT RADIAL MIRANDA'S TEST POSITIVE DEVICE VENT ILATOR FIO2 40.0 % MODE Pressure regulated volume control PEEP/CPAP 5 Tidal volume 400 RATE 15 Performed by [id number]:Recent Labs 05/03/200456 05/02/200450 P H 7.54* 7.51* 7.50*PCO2 41 47 48PO2 56* 74* 71*HCO3 35* 38* 37*FIO2 40.0 40.0 --Rec ent Glucose Results:Lab ResultsComponent Value Date/Time GLU 116 (H) 05/03/2019 0 4:15 AMCULTURES:All Micro Results Procedure Component Value Units Date/Time CULTURE, BLOOD [[id number]] Collected: 04/25/19 1210 Order Status: Completed Specimen: Bloo d Updated: 04/30/19 1352 Special Requests: NO SPECIAL REQUESTS Culture result: NO GROWTH 5 DAYS CULTURE, BLOOD [[id number]] Collected: 04/25/19 1205 Order Status: Completed Specimen: Blood Updated: 04/30/19 1352 Special Requests: NO SPEC IAL REQUESTS Culture result: NO GROWTH 5 DAYS CULTURE, RESPIRATORY/SPUTUM/BRONCH W GRAM STAIN [[id number]] (Abnormal)(Susceptibility) Collected: 0 04/26/19 1700 Order Status: Completed Specimen: Sputum from Tracheal Aspirate Updated:04/29/19 1051 Special Requests: NO SPECIAL REQUESTS GRAM STAIN 10-25 WBC/l pf <10 EPI/lpf FEW GRAM POSITIVE RODS Culture result: MODERATE PSEUDOMONAS AE RUGINOSA C. DIFFICILE (DNA) [[id number]] Collected: 04/27/19 0915 Order Status: Completed Specimen: Stool Updated: 04/27/19 1246 C. difficile (DNA) NEGATI VE Comment: This specimen is negative for toxigenic C difficile by DNAamplificatio n. Repeat testing is not recommended for confirmation, samplesreceived within 7 d ays of this negative result will be rejected. C. DIFFICILE (DNA) [[id number]] (Abnorma l) Collected: 04/25/19 1715 Order Status: Completed Specimen: Stool Updated: 04/03 1551 C. difficile (DNA) TEST RESULT IS INCONCLUSIVE. PLEASE SUBMIT A NEW SPE CIMEN FOR ANALYSIS. CULTURE, URINE [[id number]] Collected: 04/25/19 1147 Or bassem Status: Completed Specimen: Urine from Clean catch Updated: Spec ial Requests: NO SPECIAL REQUESTS Culture result: NO GROWTH 1 DAY C. DIFFICILE (DN A) [[id number]] Collected: 04/26/19 0930 Order Status: Canceled Specimen: Stool CULTURE, BLOOD [[id number]] Collected: 04/20/19 1440 Order Status: Completed S pecimen: Blood Updated: 04/26/19 0818 Special Requests: NO SPECIAL REQUESTS C ulture result: NO GROWTH 6 DAYS CULTURE, BLOOD [[id number]] Collected: 04/20/19 1 447 Order Status: Completed Specimen: Blood Updated: 04/26/19 0818 Special Request s: NO SPECIAL REQUESTS Culture result: NO GROWTH 6 DAYS CULTURE, BLOOD [[id number]] (Abnormal) Collected: 04/19/19 1005 Order Status: Completed Specimen: Blood Upda mikel: 04/22/19 0731 Special Requests: NO SPECIAL REQUESTS GRAM STAIN GRAM POSIT BRITNI COCCI IN CLUSTERS ANAEROBIC BOTTLE CALLED TO AND READ BACK BY ROB KNOX RN, ED, 0953 ON 04/20/19 TORISMIRAGLIA Culture result: STAPHYLOCOCCUS EPIDERMI DIS : Refer to previous culture(s) for susceptibilityresults CULTURE, BLOOD [[id number]] (Abnormal) (Susceptibility) Collected: 04/19/200915 Order Status: Completed Specimen: Blood Updated: 04/22/19 0729 Special Requests: NO SPECIAL REQUE STS GRAM STAIN GRAM POSITIVE COCCI IN CLUSTERS ANAEROBIC BOTTLE CALLED TO AND READ BACK BY ROB LEDEZMA RN, ED, AT 0953 ON 04/20/19 TORISMIRAGLIA Culture re sult: STAPHYLOCOCCUS EPIDERMIDISXR Results (most recent):Results from [facility] encounter on 04/19/19XR CHEST SNGL V Narrative History:Pneumonia.FINDINGS:A f rontal portable view of the chest is compared to the prior study of theprevious date.T he tracheostomy tube and EKG leads are again seen.The cardiac silhouette is normal in size. Evaluation of the lungs andmediastinal structures is limited due to rotation. T here remains opacity in themedial right lung base as well as a right pleural effusion . The left lung isunchanged. Mediastinal and hilar structures are poorly evaluated. I mpression IMPRESSION:No change compared to the prior study.CT Results (most recent) :Results from Hospital Encounter encounter on 04/19/19CT CHEST ABD PELV WO CONT Narrat britni Referring Physician: MILI HILLSPatient Name: EVELIO MALAVE REPORT FROM IMAGING ON [facility]: CT chest without contrast and CT abdomen pelvis w ithoutcontrastDATE OF EXAM: 2019-04-20 20:52:12IMAGES: 681HISTORY: reduced del th sounds right lung, LLQ tendernessComparison: 03/14/19 and 9FINDINGS: Axial images of the chest, abdomen and pelvis areobtained without iv contra st.Chest: Mediastinal assessment is limited without contrast. Imagequality limited b y artifacts. Patchy lung opacities right greaterthan left similar to prior. Small pleural effusions. Vascularincluding coronary calcifications. Mediastinum kanika ears shifted tothe right. Left hemidiaphragm is elevated.Abdomen and pelvis: Nonspeci fic bowel pattern, with post surgicalchanges on the left. No definite free air. Organ assessmentlimited without iv contrast. No significant free fluid or freeair.No bow el obstruction or abscess seen. Catheter and air in thebladder which is not well asse ssed. Left hip hardware partiallyseen with old fracture deformity. G-J tube is pres ent. Ventralhernia right of midline at abdominal wall with multiple smallbowel loops without obstructive pattern. Mild right muscleswelling with possible hematoma an d calcification at right groinimage 117/120. Degenerative bony changes. Multiple like ly chroniccompression deformities at thoracic and lumbar spine. BilateralL5-S1 spondyl olysis and anterolisthesis. Impression IMPRESSION: Right greater than left lung infiltrates and effusions.No bowel obstruction. 2 cm hyperdensity at a macrina l loop in leftpelvis image 90/120, possibly ingested material, or a tubefragment or post surgical change.Ventral abdominal hernia seen.See above.One or more of the follow ing dose reduction techniques were used:automated exposure control, adjustm ent of the mA and/or kVaccording to patient size, use of iterative reconstructivetec hnique.THIS DOCUMENT HAS BEEN ELECTRONICALLY SIGNEDFrsofia Edge MD04/20/2019 22:43 GINA Jenkins. Please call [facility] Consultant [phone] ([phone]) withquestions.T his report was electronically signed by:Marcie Edge MD 04/20/2019 10:44 PMImages:[email or web address] TEXTThis SmartLink requires a parameter for processing. Parameters are variableswhich can be added to the original SmartLink name. This allows you to reque stspecific information by giving the SmartLink precise direction.The BSILAS TIMGCAT SmartLink accepts (as a parameter) an external procedure IDor an anatomical re gion. Typically, this external ID would be the CPT code.You can also request the nu mber of procedures to be displayed by this SmartLink.To indicate the number, type t he procedure ID or anatomical regions followed bya colon and then the number o f procedures. To display all occurences for thatparticular procedure ID/anatomical r egions, type an asterisk in place of thenumber. To obtain only the last occur ence, type the procedure ID/anatomicalregions without the colon, number, or asterisk.T his SmartLink can display other procedures in the same procedure category if aparamete r is set.The SmartLink will display the last x cases of the procedure or anatomicalre gions you entered.Example: .BSHSILASTIMGCAT[[id number]:3This example wo uld display results for the last three orders with an externalprocedure ID of [id number].T he patient is: [] acutely ill Risk of deterioration: [x] moderate [x] critical ly ill [] highActive Problems: Pneumonia (11/08/2018) Acute hypoxemic respiratory failure (HCC) (03/25/2019) COPD with acute exacerbation (HCC) (04/19/2019) Acute on chronic respiratory failure with hypoxia and hypercapnia (HCC)(04/19/2019) Scrotal torsten h (04/21/2019)IMPRESSION:1 ACUTE HYPERCAPNIC AND HYPOXIC RESPIRATORY FA ILURE DUE TO SEVERE COPD/ PNEUMONIA R ML , R L L IMPROVING1. ATELECTASIS R L L , L L L RESOLVED2. PLEURAL EFFUSION ARE RESOLVING3. SEVERE COPD 4. SEVERE MET ABOLIC ENCEPHALOPATHY IMPROVED POST TRACHEOSTOMY 05/01/20195. MUSCLE FATIGU E6. SEVERE MENTAL RETARDATION7. SEIZURE VS TREMORS ON LAMICTAL SEEN BY DR BLOSSOM Bradshaw 8. PNEUMONIA - G N R , PSEUDOMONAS AERUGINOSA9. SEPSIS L A = 2.5 RESOLV ING 10. BACTEREMIA G + COCCI - STAPH EPIDERMITIS 11. SEVERE MAL NUTRITION ,S/P J TUBE INSERTION 05/01/201912. ALB = 1.4 SEVERE HYPOALBUMINEMIA Plan: 1 CONTINUE VENTILATOR SUPPORT1. DUO NEB Q 4 H2. MUCOMYST 10 % VIA MINI NEB Q 8 H3. LASIX 20 MG I V P B I D PER RENAL - DR FRANKEL 4. D ISCUSSED WITH RN ON BED SIDE 5 CONT MEROPENEM AND VANCOMYCIN 6 CONT F EEDING PER DR MOTLEY7 PROSTAT FOR SEVERE HYPOALBUMINEMI 8 , I V SOLUM EDROL FOR COPD 9 MUCOMYST TO LOOSEN TRACHEOBRONCHIAL SECTERTIONS NELDA ST P T TO MOBILIZE SECRETIONS 8 CONT CHEST P T 9 MAY TRANSFER TO TELEME TRY My assessment, plan of care, findings, medications, side effects etc werediscus sed with:[x]nursing []PT/OT[x]respiratory therapy []Dr.[]family []Critical Care Pr ovided 45 minutes non procedure based.Krystian Monae MD F.C.C.P. Name Value Range Interpretation Code Description Data [facility](s) Supporting Document(s ) ID Date Data Source [id number] 05/03/2019 07:33:13 PM EST [facility] Bedside and Verbal shift change report carol pham to Prema Mccormick (oncoming nurse) Samia Greer (offgoing nurse). Report include d the following information SBAR,Intake/Output, MAR, Recent Results and Cardiac Rhythm NSR.. Name Value Range Interpretation Code Description Data [facility](s) Supporting Document(s ) ID Date Data Source [id number] 05/03/2019 07:18:13 PM [facility] Reviewed Ventilator Settings with onc oming RT Clemencia Hunt, Settings, Weaning , Transports. Ventilator wiped d own with bleachwipes.Mario Harley, RT Name Value Range Interpretation Code Description Data [facility](s) Supporting Document(s ) ID Date Data Source [id number] 05/03/2019 05:30:05 PM [facility] Awake,alert,not following any commands,t urned and repositioned every 2 hrs,skincare,mouth care done,lower extre m.very contracted,tolerating CPAP/PS,40%,kept onventilator per Dr Monae. Name Value Range Interpretation Code Description Data [facility] rce(s) Supporting Document(s ) ID Date Data Source [id number] 05/03/2019 05:25:17 PM [facility] Progress NoteEvelio Carlin68 y.o.Adm it Date: 04/19/2019Active Problems: Pneumonia (11/08/2018) Acute hypoxemic respiratory failure (HCC) (03/25/2019) COPD with acute exacerbation (HCC) (04/19/2019) Acute on chronic respiratory failure with hypoxia and hypercapnia (HCC)(04/19/2019) Scrotal torsten h (04/21/2019)Subjective:s/p TrachhypotensivePertinent items are note d in the History of Present Illness.Objective:Visit VitalsBP 90/53 ( BP 1 Location: Right arm, BP Patient Position: At rest)Pulse 93Temp 99.3 F ( 37.4 C)Resp 26Ht 5' 2" (1.575 m)Wt 54.2 kg (119 lb 7.8 oz)SpO2 94%BMI 21.85 kg/m In take and Output:Date 05/02/19 07 - 05/03/19 0659 05/03/19 07 - 05/04/19 0659Shift 6390-4998 5071-5823 24 Hour Total 6905-4606 8225-2433 24 Hour TotalINTAKEI.V.(mL/kg/ hr) 50(0.1) 50(0.1) 100(0.1) 50 50 Volume (meropenem (MERREM) 500 mg in 0.9% sodiu m chloride (MBP/ADV) 50 mL MBP)50 50 100 50 50NG/GT 130 200 330 460 460 Water Flus h Volume (mL) (G/J Tube) 50 50 150 150 Medication Volume (G/J Tube) 30 30 50 50 Intake (ml) (G/J Tube) 50 200 250 260 260Shift Total(mL/kg) 180(3.3) 250(4.6) 430(7.9) 510(9.4) 510(9.4)OUTPUTUrine(mL/kg/hr) 700(1.1) 7 25(1.1) 1425(1.1) 650 650 Urine Output (mL) (Condom Catheter 05/02/19) 895 442 9705 650 650Emesis/NG output 150 200 350 200 200 Output (ml) (PEG/Gastrostomy Tube) 150 200 350 200 200Drains 0 0 0 Output (ml) (Fecal Management) 0 0 0Shift Total(mL/k g) 850(15.5) 925(17.1) 1775(32.7) 850(15.7) 850(15.7)NET -670 -675 -1345 -340 -340W eight (kg) 55 54.2 54.2 54.2 54.2 54.2Medications Reviewed:Current Facilit y-Administered MedicationsMedication Dose Route Frequency Provider Last Rate Last Dose metoprolol tartrate (LOPRESSOR) tablet 25 mg 25 mg Per J Tube BID Shyla León MD 25 mg at 05/03/19 0838 metoprolol (LOPRESSOR) injection 5 mg 5 mg IntraVE Nous Q6H PRN Sotero León MD LORazepam (ATIVAN) injection 1 mg 1 mg IntraVENou s QHS Krystian Monae MD 1mg at 05/02/19 2209 vits A and D-white pet-lanolin (A& D) ointment Topical PRN Laura Mills MD methylPREDNISolone (PF) (S CHEN-MEDROL) injection 40 mg 40 mg IntraVENous [id number] gonzales MD 40 mg at 05/03/19 0839 vancomycin 50 mg/mL oral solution (compounded) 125 mg 125 mg Per G Tube [id number] gonzales MD 125 mg at 05/03/19 1229 meropenem (MERREM) 500 mg in 0.9% sodium chloride (MBP/ADV) 50 mL MBP 0.5 gIntraVENous Q1 2H Kareen Mills MD 16.7 mL/hr at 05/03/19 0912 500 mg at05/03/19 0912 la moTRIgine (LaMICtal) tablet 100 mg 100 mg Per G Tube QPM Laura Mills MD 100 mg at 05/02/19 1747 lamoTRIgine (LaMICtal) tablet 50 mg 50 mg Per G Tub e DAILY Laura Mills MD 50 mg at 05/03/19 0838 sodium chloride (NS) flus h 5-40 mL 5-40 mL IntraVENous PRN Laura Mills MD pantoprazole (PROTONIX) 40 mg in 0.9% sodium chloride 10 mL injection 40 mgIntraVENous DAILY Juan Diego Mills MD 40 mg at 05/03/19 0825 acetaminophen (TYLENOL) tablet 650 mg 6 50 mg Oral Q6H PRN Laura Mills MD 650 mg at 05/03/19 0905 ondansetron (ZO ANABELLE) injection 4 mg 4 mg IntraVENous Q6H PRN Kareen Mills MD albuterol-i pratropium (DUO-NEB) 2.5 MG-0.5 MG/3 ML 3 mL Nebulization Q6HWA RTLaKareen rodriguez MD 3 mL at 05/03/19 1354 acetylcysteine (MUCOMYST) 100 mg/mL (10 %) nebulizer so lution 400 mg 4 mLInhalation TID RT Kareen Mills MD 400 mg at 1354 miconazole (MICOTIN) 2 % cream Topical BID Kareen Mills MD bu desonide (PULMICORT) 500 mcg/2 ml nebulizer suspension 500 mcg NebulizationBID RT L Kareen gonzales MD 500 mcg at 05/03/19 0840 cinacalcet (SENSIPAR) tablet 60 mg 60 mg Oral DAILY Kareen Mills MD60 mg at 05/03/19 0838 heparin (porcine) i njection 5,000 Units 5,000 Units SubCUTAneous [id number] gonzales M D 5,000 Units at 05/03/19 0545Physical Exam:Physical Exam:AlertS1 s2 tachyResp: decreased BSAbd: softExt: LUE edema +LE edema+Data Review:Recent Results (from t he past 24 hour(s))MAGNESIUM Collection Time: 05/03/19 4:15 AMResult Value Ref Range Magnesium 2.4 1.6 - 2.6 mg/dLCBC WITH AUTOMATED DIFF Collection Time: 05/03/19 4:15 AMResult Value Ref Range WBC 10.3 4.8 - 10.6 K/uL RBC 3.00 (L) 4.70 - 6.00 M/u L HGB 9.1 (L) 14.0 - 18.0 g/dL HCT 29.3 (L) 42.0 - 52.0 % MCV 97.7 (H) 81.0 - 94.0 F L MCH 30.3 27.0 - 35.0 PG MCHC 31.1 30.7 - 37.3 g/dL RDW 17.9 (H) 11.5 - 14.0 % JOCELYN TELET 523 (H) 130 - 400 K/uL MPV 9.8 9.2 - 11.8 FL NRBC 0.0 0 PER 100 WBC ABSOLUTE NRBC 0.00 0.0 - 0.01 K/uL NEUTROPHILS 88 (H) 48.0 - 72.0 % LYMPHOCYTES 8 (L) 18.0 - 4 0.0 % MONOCYTES 3 2.0 - 12.0 % EOSINOPHILS 0 0.0 - 7.0 % BASOPHILS 0 0.0 - 3.0 % BRADLEY TURE GRANULOCYTES 0 0 - 0.5 % ABS. NEUTROPHILS 9.1 (H) 2.3 - 7.6 K/UL ABS. LYMPHOCYTES 0.8 (L) 0.9 - 4.2 K/UL ABS. MONOCYTES 0.3 0.1 - 1.7 K/UL ABS. EOSINO PHILS 0.0 0.0 - 1.0 K/UL ABS. BASOPHILS 0.0 0.0 - 0.4 K/UL ABS. IMM. GRANS. 0.0 0.0 - 0.17 K/UL DF AUTOMATEDMETABOLIC PANEL, COMPREHENSIVE Collection Time: 05/03/19 4:15 AMResult Value Ref Range Sodium 147 (H) 136 - 145 mmol/L Potassium 3.8 3.5 - 5.1 mmol/L Chloride 109 (H) 98 - 107 mmol/L CO2 34 (H) 21 - 32 mmol/L Anion gap 8 (L) 10 - 20 mmol/L Glucose 116 (H) 74 - 106 mg/dL BUN 42 (H) 7 - 18 mg/dL Creatinine 1.99 (H) 0.70 - 1.30 mg/dL GFR est AA 43 (L) >60 ml/min/1.73m2 GFR est non-AA 36 (L) >60 ml/min/1.73m2 Calcium 10.1 8.5 - 10.1 mg/dL Bilirubin, total 0.6 0.2 - 1.0 mg/dL ALT (SGPT) 13 13 - 61 U/L AST (SGOT) 16 15 - 37 U/L Alk. phosphatase 64 45 - 117 U/L Pro tein, total 6.6 6.4 - 8.2 g/dL Albumin 2.2 (L) 3.5 - 4.7 g/dL Globulin 4.4 1.7 - 4. 7 g/dL A-G Ratio 0.5 (L) 0.7 - 2.8PHOSPHORUS Collection Time: 05/03/19 4:15 AMResult Value Ref Range Phosphorus 3.2 2.5 - 4.9 mg/dLBLOOD GAS, ARTERIAL Collection Time : 05/03/19 5:56 AMResult Value Ref Range pH 7.54 (H) 7.35 - 7.45 PCO2 41 32 - 48 mmH g PO2 56 (L) 83 - 108 mmHg CO2, TOTAL 36 (H) 19 - 24 mmol/L BICARBONATE 35 (H) 21 - 2 8 mmol/L O2 SAT 91 (L) 94 - 98 % BASE EXCESS 11.4 (H) 0 - 3 mmol/L SITE RIGHT RADIAL MIRANDA'S TEST POSITIVE DEVICE VENTILATOR FIO2 40.0 % MODE Pressure regulated volume co ntrol PEEP/CPAP 5 Tidal volume 400 RATE 15 Performed by [id number]:Xr Chest Sngl VResult Date: 05/03/2019History: Pneumonia. FINDINGS: A frontal portable view of the chest is comparedto the prior study of the previous date. The tracheostomy tube and EKG leads areagain seen. The cardiac silhouette is normal in size. Evaluation of the lungsand mediastinal structures is limited due to rotation. There remains o pacity inthe medial right lung base as well as a right pleural effusion. The left elham ng isunchanged. Mediastinal and hilar structures are poorly evaluated.IMPRESSI ON: No change compared to the prior study.Impression:Active Hospital Problem s Diagnosis Date Noted Scrotal rash 04/21/2019 COPD with acute exacerbation (HCC) 04/19/2019 Acute on chronic respiratory failure with hypoxia and hyp ercapnia (HCC)04/19/2019 Acute hypoxemic respiratory failure (HCC) 03/25/2019 Pn eumonia 11/08/2018 NOAH. S/p trach HypernatremiaPlan:DC LasixAdd free water 100ml every 4 hoursFollow up labsRenal coverage for Mireya Serrato [facility] 2019 Name Value Range Interpretation Code Description Data [facility] Supporting Document[facility]s ) ID Date Data Source [id number] 05/03/2019 03:31:16 PM [facility] Patient placed on CPAP and PS. Will gissell elizondo along with NANCY See. Name Value Range Interpretation Code Description Data [facility] rce(s) Supporting Document(s ) ID Date Data Source [id number] 05/03/2019 01:50:12 PM [facility] Trial of CPAP5 PS10 40%,monitor closely. Name Value Range Interpretation Code Description Data [facility](s) Supporting Document(s ) ID Date Data Source [id number] 05/03/2019 11:55:42 AM EST [facility] ICU - Progress NoteCoverage for Dr Olivia Carlin is 68 y.o. male with significant PMhx of Dysphagia, recurrent aspiration pneumonia, s/p g/t placement on 11/17/18 and conversion to PEJ on02/07/19, hyperlipidemia, hyperparathyroid unspecified, seizure, large hiatalhernia , anxiety disorder, personal history of pulmonary embolus, COPD, GERD,SChizophre freddy unspecified, Kyphosis, Parkinson disease, Severe intellectualdisabilities, contrac tures, and generalized muscle weakness.He was admitted for acute hypoxemic respiratory failure. He is s/p tracestomyand in progress of weaning tolerating T- tube, NOAH.Admit Date: 04/19/2019Active Problems: Pneumonia (11/08/2018) Acute hypoxemic respiratory failure (HCC) (03/25/2019) COPD with acute exacerbation (HCC) (04/19/2019) Acute on chronic respiratory failure with hypoxia and hypercapnia (HCC)(04/19/2019) Scrotal torsten h (04/21/2019)Subjective:Patient none..Pertinent items are noted in the H istory of Present Illness.Alert on ventObjective:Visit VitalsBP 108/54Pulse 76Temp 99.5 F (37.5 C)Resp 16Ht 5' 2" (1.575 m)Wt 54.2 kg (119 lb 7.8 oz)SpO2 96%BMI 21.85 kg/m No Known AllergiesCurrent Facility-Administered MedicationsMedicat ion Dose Route Frequency metoprolol tartrate (LOPRESSOR) tablet 25 mg 25 mg Per J Tu be BID metoprolol (LOPRESSOR) injection 5 mg 5 mg IntraVENous Q6H PRN LORazepam (AT MATTHEW) injection 1 mg 1 mg IntraVENous QHS vits A and D-white pet-lanolin (A&D) oin tment Topical PRN furosemide (LASIX) injection 20 mg 20 mg IntraVENous BID methylPREDNISolone (PF) (SOLU-MEDROL) injection 40 mg 40 mg IntraVENous Q12H bacitracin 500 unit/gram packet 1 Packet 1 Packet Topical TID vancomycin 50 mg/mL oral solution (compounded) 125 mg 125 mg Per G Tube Q6H meropenem (MERREM) 500 mg in 0.9% sodium chloride (MBP/ADV) 50 mL MBP 0.5 gIntraVENous Q12H lamoTRIgine (LaMI Ctal) tablet 100 mg 100 mg Per G Tube QPM lamoTRIgine (LaMICtal) tablet 50 mg 50 mg Per G Tube DAILY sodium chloride (NS) flush 5-40 mL 5-40 mL IntraVENous PRN pantoprazole (PROTONIX) 40 mg in 0.9% sodium chloride 10 mL injection 40 mgIntraVENo us DAILY acetaminophen (TYLENOL) tablet 650 mg 650 mg Oral Q6H PRN ondansetron (ZO ANABELLE) injection 4 mg 4 mg IntraVENous Q6H PRN albuterol-ipratropium (DUO-NEB) 2.5 MG-0.5 MG/3 ML 3 mL Nebulization Q6HWA RT acetylcysteine (MUCOMYST) 100 mg/mL (10 %) nebulizer solution 400 mg 4 mLInhalation TID RT miconazole (MICOTIN) 2 % cream Topical BID budesonide (PULMICORT) 500 mcg/2 ml nebulizer suspension 500 mcg N ebulizationBID RT cinacalcet (SENSIPAR) tablet 60 mg 60 mg Oral DAILY heparin (porcine) injection 5,000 Units 5,000 Units SubCUTAneous [id number] Exam:Physical Exam:General: Alert, cooperative, no distress, on ventEyes: Conjunctivae/cor neas clear, OS iridectomy?.EOMs intact.Mouth/Throat: Lips, mucosa, and t ongue normal.Neck: Supple, symmetrical, trachea midline, no adenopathy, thyroid: noenlargement/tenderness/nodules, no carotid bruit and no JVD.Lungs: Mainly clear t o auscultation bilaterally.Heart: Regular rate and rhythm, S1, S2 normal, no murmu r, click, rub or gallop.Abdomen: Soft, non-tender. G tube and J tube sites sudhakar n, Bowel sounds normal.Extremities: Extremities contracted, no cyanosis or e yana,Pulses: 1+ and symmetric all extremities.Skin: Skin color, texture, t urgor normal. No rashes or lesionsLymph nodes: Anterior Cervical Lymph nodes nor malNeurologic: Cranial nerve assessment limited due to intubation.CNII-XII gross lyintactData Review:Labs: Results:Chemistry Recent Labs 05/03/200456 05/03/200315 0 05/02/200450 05/01/200707GLU -- 116* -- 80 89NA -- 147* -- 146* 14 5K -- 3.8 -- 4.0 3.6CL -- 109* -- 109* 107CO2 36* 34* 39* 35* 35*BUN -- 42* -- 43* 44*CREA -- 1.99* -- 1.79* 1.93*CA -- 10.1 -- 9.8 10.0AGAP -- 8* -- 6* 7*AP -- 64 -- 62 72TP -- 6.6 -- 6.0* 6.7ALB -- 2.2* -- 2.0* 2.1*GLOB -- 4.4 -- 4.0 4.6AGRAT -- 0.5* -- 0.5* 0.5*CBC w/Diff Recent Lab s 05/02/200305/01/200707WBC 10.3 16.1* 11.9*RBC 3.00* 3.08* 3.39*HGB 9.1* 9.4* 10.2*HCT 29.3* 30.1* 32.9*PLT 523* 551* 577*GRANS 88* 89* 82*LYMPH 8* 7* 14 *EOS 0 0 0Cardiac Enzymes No results for input(s): CPK, CKND1, NESTOR in the last 72 hours.No lab exists for component: CKRMB, TROIPCoagulation Recent Labs 05/01/2007 07PTP 10.9INR 1.1APTT 23.6Lipid Panel Lab ResultsComponent Value Date/Time Cholest maria r, total 156 03/12/2019 06:50 AM HDL Cholesterol 71 03/12/2019 06:50 AM LDL, calculated 65.6 03/12/2019 06:50 AM VLDL, calculated 19.4 03/12/2019 06:50 AM Trig lyceride 97 03/12/2019 06:50 AM CHOL/HDL Ratio 2.2 03/12/2019 06:50 AMBNP No resu lts for input(s): BNPP in the last 72 hours.Liver Enzymes Recent Labs 15902QM 6.6ALB 2.2*AP 64SGOT 16Thyroid Studies Lab ResultsComponent Value Date/ Time TSH 2.990 04/23/2019 07:19 AMIntake and Output:Intake/Output Summary (Last 24 ho urs) at 05/03/2019 1145Last data filed at 05/03/2019 0800Gross per 24 hourIntake 43 0 mlOutput 1775 mlNet -1345 mlImaging:Xr Chest Sngl VResult Date: 05/03/2019Histor y: Pneumonia. FINDINGS: A frontal portable view of the chest is comparedto the prio r study of the previous date. The tracheostomy tube and EKG leads areagain seen. The cardiac silhouette is normal in size. Evaluation of the lungsand mediast inal structures is limited due to rotation. There remains opacity inthe medial right lung base as well as a right pleural effusion. The left lung isunchanged. Med iastinal and hilar structures are poorly evaluated.IMPRESSION: No change compared to the prior study.Impression/Plan:Active Hospital Problems Diagnosis Date Noted Scrotal rashLocal antifungal tx 04/21/2019 COPD with acute exacerbation (HCC) 04/19 Acute on chronic respiratory failure with hypoxia and hypercapnia (HCC)2019 Acute hypoxemic respiratory failure (HCC)Vent supportIs s/p tracheostomyCont weaning to T tube as tolerated 03/25/2019 PneumoniaMeropenemMucomystDuonebWBC 16-- > 10AKIGentle hydrationBUN/Creat 42/1.9 11/08/2018Continue ICU level care for no Nayan Aquino 2009~ 11am - 12 noonICU level care with interactions wit h consultants and nursing Name Value Range Interpretation Code Description Data Harriett rce(s) Supporting Document(s ) ID Date Data Source [id number] 05/03/2019 11:44:09 AM EST [facility] ID Progress Note05/03/2019Subjective:Even ts notedBlood cx remain negativeResp cx with pseudomonasS/p tracheostomy and jejunost rosina tube placement.On vent support.Wbc trending downLow grade fever.Objective:R eview of SystemsPatient is unable to provideVitals:Patient Vitals for the pas t 24 hrs: BP Temp Pulse Resp SpO2 Tnongs37/19/20 1100 108/54 99.5 F (37.5 C) 76 16 96 % -05/03/19 1030 119/61 99.7 F (37.6 C) 74 24 96 % -05/03/19 1000 (!) 85/48 99.9 F (37.7 C) 75 20 96 % -05/03/19 0900 134/80 - (!) 110 24 99 % -05/03/19 0841 - - (!) 104 (!) 95 95 % -05/03/19 0800 142/81 100.2 F (37.9 C) 98 16 95 % - 0700 132/72 - 99 19 94 % -05/03/19 0600 148/64 - 93 22 96 % -05/03/19 0500 (!) 168/118 - 98 15 94 % -05/03/19 0400 118/71 99.9 F (37.7 C) 96 29 - 54.2 kg (119 lb 7.8 oz)05/03/19 0300 119/84 - 85 15 94 % -05/03/19 0200 101/49 - 89 15 90 % -05/03/19 0143 - - 92 15 95 % -05/03/19 0100 125/60 - 94 (!) 43 100 % -05/03/19 0000 (!) 134/92 99.9 F (37.7 C) 98 23 100 % -05/02/19 2300 122/72 - 95 27 (!) 89 % - 05/02/19 2200 141/81 - 98 22 100 % -05/02/19 2100 (!) 133/109 - 89 24 97 % -05/02/19 2000 129/57 99.1 F (37.3 C) (!) 110 21 (!) 89 % -05/02/19 1900 125/67 98.8 F (37.1 C) 95 28 95 % -05/02/19 1800 (!) 129/97 99 F (37.2 C) (!) 102 23 99 % -05/02/19 17 00 109/76 98.8 F (37.1 C) (!) 101 23 95 % -05/02/19 1600 114/73 98.8 F (37.1 C) 94 27 94 % -05/02/19 1500 110/78 99 F (37.2 C) 96 30 95 % -05/02/19 1400 141/83 99.3 F (37.4 C) (!) 101 23 95 % -05/02/19 1300 129/90 99.3 F (37.4 C) 95 16 97 % - 1200 119/63 99.3 F (37.4 C) 91 22 95 % -Tmax: Temp (24hrs), Av.4 F (37. 4 C), Min:98.8 F (37.1 C), Max:100.2 F(37.9 C)Physical Exam:General: Awake on vent no distressEyes: Conjunctivae/corneas clear. PERRLNeck: S upple, symmetrical, trachea midline, no adenopathyLungs: bilateral breath harriett nds with basal crackles..Heart: Regular rate and rhythm, S1, S2 normal, no murmurAbdo men: Soft, non-tender. Bowel sounds normal. No masses, Noorganomegaly.peg+J tube+Ba ck: No CVA tenderness.Extremities: No cyanosis ,chronic lymphedema .Pulses: 2+ and symmetric all extremities.Skin: Skin color, texture, turgor normal. No rashes or lesionsLymph nodes: Cervical, supraclavicular, and axillary nodes norm al.Current Facility-Administered MedicationsMedication Dose Route Frequen cy metoprolol tartrate (LOPRESSOR) tablet 25 mg 25 mg Per J Tube BID metoprolol (LO PRESSOR) injection 5 mg 5 mg IntraVENous Q6H PRN LORazepam (ATIVAN) injection 1 mg 1 mg IntraVENous QHS vits A and D-white pet-lanolin (A&D) ointment Topical PRN furosemide (LASIX) injection 20 mg 20 mg IntraVENous BID methylPREDNISolone (PF) (SOLU-MEDROL) injection 40 mg 40 mg IntraVENous Q12H bacitracin 500 unit/gr am packet 1 Packet 1 Packet Topical TID vancomycin 50 mg/mL oral solution (compo unded) 125 mg 125 mg Per G Tube Q6H meropenem (MERREM) 500 mg in 0.9% sodium chloride (MBP/ADV) 50 mL MBP 0.5 gIntraVENous Q12H lamoTRIgine (LaMICtal ) tablet 100 mg 100 mg Per G Tube QPM lamoTRIgine (LaMICtal) tablet 50 mg 50 mg Per G Tube DAILY sodium chloride (NS) flush 5-40 mL 5-40 mL IntraVENous PRN pantoprazole (PROTONIX) 40 mg in 0.9% sodium chloride 10 mL injection 40 mgIntraVENo us DAILY acetaminophen (TYLENOL) tablet 650 mg 650 mg Oral Q6H PRN ondansetron (ZO ANABELLE) injection 4 mg 4 mg IntraVENous Q6H PRN albuterol-ipratropium (DUO-NEB) 2.5 MG-0.5 MG/3 ML 3 mL Nebulization Q6HWA RT acetylcysteine (MUCOMYST) 100 mg/mL (10 %) nebulizer solution 400 mg 4 mLInhalation TID RT miconazole (MICOTIN) 2 % cream Topical BID budesonide (PULMICORT) 500 mcg/2 ml nebulizer suspension 500 mcg N ebulizationBID RT cinacalcet (SENSIPAR) tablet 60 mg 60 mg Oral DAILY heparin (porcine) injection 5,000 Units 5,000 Units SubCUTAneous A73TEnkh:Recent Labs 05/02/200305/01/200707WBC 10.3 16.1* 11.9*HGB 9.1* 9.4* 10.2*PLT 523* 5 51* 577*BUN 42* 43* 44*CREA 1.99* 1.79* 1.93*SGOT 16 14* 15AP 64 62 72TBILI 0.6 0.7 0.4Cultures:Lab ResultsComponent Value Date/Time Culture result: MODERATE PSEUD OMONAS AERUGINOSA (A) 04/26/2019 05:00 PM Culture result: NO GROWTH 5 DAYS 020 12:10 PM Culture result: NO GROWTH 5 DAYS 04/25/2019 12:05 PMRadiology:Xr Chest Sn gl VResult Date: 05/03/2019History: Pneumonia. FINDINGS: A frontal portable view of the chest is comparedto the prior study of the previous date. The tracheostomy tube and EKG leads areagain seen. The cardiac silhouette is normal in size. Evaluation of the lungsand mediastinal structures is limited due to rotation. There remains o pacity inthe medial right lung base as well as a right pleural effusion. The left elham ng isunchanged. Mediastinal and hilar structures are poorly evaluated.IMPRESSI ON: No change compared to the prior study.Assessment: Staph sepsis. Aspira tion pneumonia (pseudomonas) Acute COPD exacerbation. Acute respiratory failure . Pleural effusion. Dysphagia Fever Plan:1. Continue meropenem2. Continue or al vancomycin prophylaxis doseFomalaika Dudley MDJanuary 201911:42 AM Name Value Range Interpretation Code Description Data [facility] Supporting Document(s ) ID Date Data Source [id number] 05/03/2019 08:01:44 AM EST [facility] History:Pneumonia.FINDINGS:A frontal por table view of the chest is compared to the prior study of theprevious date.The trac heostomy tube and EKG leads are again seen.The cardiac silhouette is normal in size. Evaluation of the lungs andmediastinal structures is limited due to rotation. T here remains opacity in themedial right lung base as well as a right pleural effusion . The left lung isunchanged. Mediastinal and hilar structures are poorly evaluated.IM PRESSION:No change compared to the prior study. Signing date/time: 05/03/2019 8:0 1 AMSigned by: SAMIR RENTERIA Name Value Range Interpretation Code Description Data [facility] Supporting Document(s ) ID Date Data Source [id number] 05/03/2019 07:18:13 AM EST [facility] Bedside shift change report given to Opabbey Greer RN (oncoming nurse) Thiago Ha (offgoing nurse). Report included the following information SBAR,Intake/Output, MAR, Recent Results and Cardiac Rhythm Sinus Tach. Name Value Range Interpretation Code Description Data [facility](s) Supporting Document(s ) ID Date Data Source [id number] 05/03/2019 05:57:15 AM EST [facility] Name Value Range Interpretation Description Data Sup porting Code Source(s) Document(s ) pH of Arterial 7.54 7.35-7.4 Above high normal [facility] - Good blood 5 [facility] Carbon dioxide 41 mmHg 32-48 [facility] - Good [Partial Taoist pressure] in Hospital Arterial blood Oxygen 56 mmHg 83-108 Below low normal [facility] - Good [Partial Taoist pressure] in Hospital Arterial blood Carbon 36 19-24 Above high normal [facility] - Good dioxide, total mmol/L Taoist [Moles/volume] Hospital in Arterial blood Bicarbonate 35 21-28 Above high normal [facility] - Go od [Moles/volume] mmol/L [facility]ist in Arterial Hospital blood Oxygen 91 % 94-98 Below low normal [facility] - Good saturation in Taoist Blood [facility] Base excess in 11.4 0-3 Above high normal [facility] - Good Arterial blood mmol/L Taoist by calculation Hospital Body site [facility] - Good [facility] Arterial [facility] - Good patency Wrist Taoist artery --pre Hospital arterial puncture Oxygen gas [facility] - Good flow Oxygen Taoist delivery [facility] system Oxygen/Inspire 40.0 % [facility] - Good d gas [facility] Respiratory Hospital system --on ventilator Ventilation [facility] - Good mode Taoist [Identifier] [facility] Ventilator PEEP 5 [facility] - Good Respiratory Taoist system [facility] Tidal volume 400 [facility] - Good setting [facility] Ventilator Hospital Respiratory 15 [facility] - Good rate [facility] Service 68658 [facility] - Good comment [facility] ID Date Data Source [id number] 05/03/2019 05:41:42 AM EST [facility] Name Value Range Interpretation Description Data Sup porting Code Source(s) Document(s ) Leukocytes 10.3 4.8-10.6 [facility] - [#/volume] in K/uL Good Blood by Taoist Automated count [facility] Erythrocytes 3.00 4.70-6.0 Below low normal [facility] - [#/volume] in M/uL 0 Good Blood by [facility] Hemoglobin 9.1 g/dL 14.0-18. Below low normal [facility] - [Mass/volume] in 0 Good Blood [facility] Hematocrit 29.3 % 42.0-52. Below low normal [facility] - [Volume 0 Good Fraction] of Taoist Blood by Hospital Automated count Erythrocyte mean 97.7 FL 81.0-94. Above high normal [facility] - corpuscular 0 Good volume [Entitic Taoist volume] by Hospital Automated count Erythrocyte mean 30.3 PG 27.0-35. [facility] - corpuscular 0 Good hemoglobin Taoist [Entitic mass] [facility] by Automated count Erythrocyte mean 31.1 30.7-37. [facility] - corpuscular g/dL 3 Good hemoglobin [facility] [Mass/volume] by Automated count Erythrocyte 17.9 % 11.5-14. Above high normal [facility] - distribution 0 Good width [Ratio] by Taoist Automated count [facility] Platelets 523 K/uL 130-400 Above high normal [facility] - [#/volume] in [facility] Blood by Taoist Automated count [facility] Platelet mean 9.8 FL 9.2-11.8 [facility] - volume [Entitic Good volume] in Blood Taoist by Automated Hospital count Nucleated 0.0 PER 0 [facility] - erythrocytes/100 100 WBC Good leukocytes Taoist [Ratio] in Blood [facility] Nucleated 0.00 0.0-0.01 [facility] - erythrocytes K/uL Good [#/volume] in [facility] Segmented 88 % 48.0-72. Above high normal [facility] - neutrophils/100 0 Good leukocytes in [facility] Lymphocytes/100 8 % 18.0-40. Below low normal [facility] - leukocytes in 0 [facility] Monocytes/100 3 % 2.0-12.0 [facility] - leukocytes in [facility] Eosinophils/100 0 % 0.0-7.0 [facility] - leukocytes in [facility] Basophils/100 0 % 0.0-3.0 [facility] - leukocytes in [facility] Immature 0 % 0-0.5 [facility] - granulocytes/100 Good leukocytes in [facility] by Hospital Automated count Segmented 9.1 K/UL 2.3-7.6 Above high normal [facility] - neutrophils Good [#/volume] in [facility] Lymphocytes 0.8 K/UL 0.9-4.2 Below low normal [facility] - [#/volume] in [facility] Monocytes 0.3 K/UL 0.1-1.7 [facility] - [#/volume] in [facility] Eosinophils 0.0 K/UL 0.0-1.0 [facility] - [#/volume] in [facility] Basophils 0.0 K/UL 0.0-0.4 [facility] - [#/volume] in [facility] Immature 0.0 K/UL 0.0-0.17 [facility] - granulocytes Good [#/volume] in [facility] by Hospital Automated count Differential [facility] - cell count Good method - [facility] ID Date Data Source [id number] 05/03/2019 04:55:45 AM EST [facility] Name Value Range Interpretation Description Data Sup porting Code Source(s) Document(s ) Phosphate 3.2 mg/dL 2.5-4.9 [facility] - Good [Mass/volume] Taoist in Serum or Hospital Plasma ID Date Data Source [id number] 05/03/2019 04:55:45 AM EST [facility] Name Value Range Interpretation Description Data Sup porting Code Source(s) Document(s ) Sodium 147 136-145 Above high [facility] - [Moles/volume] in mmol/L normal [facility] Serum or Plasma [facility] Potassium 3.8 3.5-5.1 [facility] - [Moles/volume] in mmol/L [facility] Serum or [facility] Chloride 109 98-107 Above high [facility] - [Moles/volume] in mmol/L normal [facility] Serum or [facility] Carbon dioxide, 34 21-32 Above high [facility] - total mmol/L normal [facility] [Moles/volume] in Taoist Serum or Plasma Hospital Anion gap in Serum 8 10-20 Below low normal [facility] - or Plasma mmol/L [facility] Glucose 116 74-106 Above high [facility] - [Mass/volume] in mg/dL normal [facility] Serum or Plasma [facility] Urea nitrogen 42 7-18 Above high [facility] - [Mass/volume] in mg/dL normal [facility] or [facility] Creatinine 1.99 0.70-1. Above high [facility] - [Mass/volume] in mg/dL 30 normal Good Serum or Plasma [facility] Glomerular 43 >60 Below low normal [facility] - filtration ml/min/ Good rate/1.73 sq M 1.73m2 Taoist predicted among Hospital blacks [Volume Rate/Area] in Serum or Plasma by Creatinine-based formula (MDRD) Glomerular 36 >60 Below low normal [facility] - filtration ml/min/ Good rate/1.73 sq M 1.73m2 Taoist predicted among Hospital non-blacks [Volume Rate/Area] in Serum or Plasma by Creatinine-based formula (MDRD) Calcium 10.1 8.5-10. [facility] - [Mass/volume] in mg/dL 1 [facility] Serum or Plasma [facility] Bilirubin.total 0.6 0.2-1.0 [facility] - [Mass/volume] in mg/dL Good Serum or Plasma [facility] Alanine 13 U/L 13-61 [facility] - aminotransferase Good [Enzymatic Taoist activity/volume] in Hospital Serum or Plasma Aspartate 16 U/L 15-37 [facility] - aminotransferase Good [Enzymatic Taoist activity/volume] in Hospital Serum or Plasma by With P-5'-P Alkaline 64 U/L 45-117 [facility] - phosphatase Good [Enzymatic Taoist activity/volume] in Hospital Serum or Plasma Protein 6.6 6.4-8.2 [facility] - [Mass/volume] in g/dL Good Serum or Plasma [facility] Albumin 2.2 3.5-4.7 Below low normal [facility] - [Mass/volume] in g/dL Good Serum or Plasma by Taoist Bromocresol [facility] (BCP) dye binding method Globulin 4.4 1.7-4.7 [facility] - [Mass/volume] in g/dL Good Serum by [facility] Albumin/Globulin 0.5 0.7-2.8 Below low normal [facility] - [Mass Ratio] in Good Serum or Plasma [facility] ID Date Data Source [id number] 05/03/2019 04:55:45 AM [facility] Name Value Range Interpretation Description Data Sup porting Code Source(s) Document(s ) Magnesium 2.4 mg/dL 1.6-2.6 [facility] - Good [Mass/volume] Taoist in Serum or Hospital Plasma ID Date Data Source [id number] 05/03/2019 01:26:07 AM [facility] Pt intermittenly tachypneic w/ respirati ons 30s and 40s, O2 sat remains > 95%.Dr. Dov nevarez via service, made aware. Or ders received to put pt back onventilator, no changes to vent settings at this time. R T made aware. Willcontinue to monitor. Name Value Range Interpretation Code Description Data Harriett rce(s) Supporting Document(s ) ID Date Data Source [id number] 05/02/2019 07:36:12 PM [facility] Bedside and Verbal shift change report carol pham to Anne Ha (oncoming nurse) Samia Greer (offgoing nurse). Repor t included the following information SBAR,Intake/Output, MAR, Recent Results and Cardiac Rhythm NSR.. Name Value Range Interpretation Code Description Data Harriett rce(s) Supporting Document(s ) ID Date Data Source [id number] 05/02/2019 03:06:37 PM [facility] Progress NoteEmanuel [id number] y.o.Adm it Date: 04/19/2019Active Problems: Pneumonia (11/08/2018) Acute hypoxemic respiratory failure (HCC) (03/25/2019) COPD with acute exacerbation (HCC) (04/19/2019) Acute on chronic respiratory failure with hypoxia and hypercapnia (HCC)(04/19/2019) Scrotal torsten h (04/21/2019)Subjective:s/p TrachPertinent items are noted in the History of Presen t Illness.Objective:Visit VitalsBP 141/83 (BP 1 Location: Right arm, BP Patient Positi on: At rest)Pulse (!) 101Temp 99.3 F (37.4 C)Resp 23Ht 5' 2" (1.575 m)Wt 55 kg (121 lb 4.1 oz)SpO2 95%BMI 22.18 kg/m Intake and Output:Date 05/01/19 0700 - 05/02/19 065 9 05/02/19 0700 - 05/03/19 0659Shift 9975-6458 7148-9506 24 Hour Total 0700-1 859 5236-1163 24 Hour TotalINTAKEI.V.(mL/kg/hr) 550(0.8) 350(0 .5) 900(0.7) 50 50 I.V. 500 500 Diprivan Volume 0 0 Volume (lactated Ringers in fusion) 0 0 Volume (enalaprilat (VASOTEC) 2.5 mg in 0.9% sodium chloride 50 mL IVP B) 0 0 Volume (potassium chloride 10 mEq in 100 ml IVPB) 300 300 Volume (meropenem (MERREM) 500 mg in 0.9% sodium chloride (MBP/ADV) 50 mL MBP)50 50 100 50 50Shif t Total(mL/kg) 550(9.2) 350(6.4) 900(16.4) 50(0.9) 50(0.9)OUTPUTUrine(mL/kg/hr) 11 50(1.6) 800(1.2) 1950(1.5) Urine Voided 1150 1150 Urine Output (mL) ([REMOVED] Cond om Catheter 04/29/19) 800 800Emesis/NG output 50 50 Output (ml) (PEG/Gastrost rosina Tube) 50 50Drains 25 0 25 Output (ml) (Fecal Management) 25 0 25Blood 0 0 Es timated Blood Loss 0 0Shift Total(mL/kg) 1175(19.7) 850(15.5) 2025(36.8)NET -823 -631 -8263 50 50Weight (kg) 59.6 55 55 55 55 55Medications Reviewed:Current Facility- Administered MedicationsMedication Dose Route Frequency Provider Last Rate Last Dose hydrALAZINE (APRESOLINE) 20 mg/mL injection 10 mg 10 mg IntraVENous Q6H Eloisa Hicks MD HYDROmorphone (PF) (DILAUDID) injection 0.5 mg 0.5 mg IntraVENous Q3H PRNLKareen gonzales MD 0.5 mg at 05/01/192008 LORazepam (ATIVAN) inject ion 1 mg 1 mg IntraVENous QHS Krystian Monae MD 1mg at 05/01/19 2324 vits A and D- white pet-lanolin (A&D) ointment Topical PRN Laura Mills MD furosemide (LASIX) injection 20 mg 20 mg IntraVENous BID Laura Mills MD 20 mg at 0 05/02/19 0831 methylPREDNISolone (PF) (SOLU-MEDROL) injection 40 mg 40 mg Int raVENous [id number] gonzales MD 40 mg at 05/02/19 0849 bacitracin 500 unit/gr am packet 1 Packet 1 Packet Topical TID Kareen Mills MD 1 Packet at 0837 vancomycin 50 mg/mL oral solution (compounded) 125 mg 125 mg Per G Tube [id number] gonzales MD 125 mg at 05/02/19 1257 meropenem (MERREM) 500 mg in 0.9% sodium chloride (MBP/ADV) 50 mL MBP 0.5 gIntraVENous Q12H Dayanara Mills MD 16.7 mL/hr at 05/02/19 0943 500 mg at05/02/19 0943 lamoTRIgine (LaMICta l) tablet 100 mg 100 mg Per G Tube QPM Laura Mills MD Stopped at 1800 lamoTRIgine (LaMICtal) tablet 50 mg 50 mg Per G Tube DAILY Dayanara Mills MD 50 mg at 05/02/19 1253 sodium chloride (NS) flush 5-40 mL 5-40 mL Int raVENous PRN Laura Mills MD pantoprazole (PROTONIX) 40 mg in 0.9% so dium chloride 10 mL injection 40 mgIntraVENous DAILY Kareen Mills MD 40 mg at 05/02/19 0835 acetaminophen (TYLENOL) tablet 650 mg 650 mg Oral Q6H PRN Laura Mills MD 650 mg at 04/26/19 0453 ondansetron (ZOFRAN) inje ction 4 mg 4 mg IntraVENous Q6H PRN Kareen Mills MD magnesium hydro xide (MILK OF MAGNESIA) 400 mg/5 mL oral suspension 30 mL 30mL Oral DAILY PRN Kareen Bill MD albuterol-ipratropium (DUO-NEB) 2.5 MG-0.5 MG/3 ML 3 mL Nebul ization Q6HWA RTKareen Mills MD 3 mL at 05/02/19 1339 acetylcysteine (MUC OMYST) 100 mg/mL (10 %) nebulizer solution 400 mg 4 mLInhalation TID RT Kareen Mills MD 400 mg at 05/02/19 1339 miconazole (MICOTIN) 2 % cream Topical BID Kareen Mills MD budesonide (PULMICORT) 500 mcg/2 ml nebulizer suspe nsion 500 mcg NebulizationBID RT Kareen Mills MD 500 mcg at 05/02/19 0818 cinacalcet (SENSIPAR) tablet 60 mg 60 mg Oral DAILY Kareen Mills MD60 mg at 05/02/19 1253 heparin (porcine) injection 5,000 Units 5,000 Units SubCU TAneous [id number] gonzales MD 5,000 Units at 05/02/19 0536Physical Exam:Phys ical Exam:AlertS1 s2 tachyResp:decreased BSAbd: softExt: LUE edema +LE edema++Pan a Review:Recent Results (from the past 24 hour(s))MAGNESIUM Collection Time: 05/02 4:30 AMResult Value Ref Range Magnesium 2.2 1.6 - 2.6 mg/dLCBC WITH AUTOMATED DI FF Collection Time: 05/02/19 4:30 AMResult Value Ref Range WBC 16.1 (H) 4.8 - 10.6 K/uL RBC 3.08 (L) 4.70 - 6.00 M/uL HGB 9.4 (L) 14.0 - 18.0 g/dL HCT 30.1 (L) 42.0 - 52.0 % MCV 97.7 (H) 81.0 - 94.0 FL MCH 30.5 27.0 - 35.0 PG MCHC 31.2 30.7 - 37.3 g/d L RDW 17.9 (H) 11.5 - 14.0 % PLATELET 551 (H) 130 - 400 K/uL MPV 9.5 9.2 - 11.8 FL NRB C 0.0 0 PER 100 WBC ABSOLUTE NRBC 0.00 0.0 - 0.01 K/uL NEUTROPHILS 89 (H) 48.0 - 72.0 % LYMPHOCYTES 7 (L) 18.0 - 40.0 % MONOCYTES 3 2.0 - 12.0 % EOSINOPHILS 0 0.0 - 7.0 % BASOPHILS 0 0.0 - 3.0 % IMMATURE GRANULOCYTES 1 (H) 0 - 0.5 % ABS. NEUTRO PHILS 14.4 (H) 2.3 - 7.6 K/UL ABS. LYMPHOCYTES 1.2 0.9 - 4.2 K/UL ABS. MONO CYTES 0.4 0.1 - 1.7 K/UL ABS. EOSINOPHILS 0.0 0.0 - 1.0 K/UL ABS. BASOPHILS 0.0 0.0 - 0.4 K/UL ABS. IMM. GRANS. 0.1 0.0 - 0.17 K/UL DF AUTOMATEDMETABOLIC PANEL, [facility] Collection Time: 05/02/19 4:30 AMResult Value Ref Range Sodium 146 (H) 136 - 145 mmol/L Potassium 4.0 3.5 - 5.1 mmol/L Chloride 109 (H) 98 - 107 mmol/L CO2 35 (H) 21 - 32 mmol/L Anion gap 6 (L) 10 - 20 mmol/L Glucose 80 74 - 106 mg/dL BUN 43 (H) 7 - 18 mg/dL Creatinine 1.79 (H) 0.70 - 1.30 mg/dL GFR est AA 49 (L) >60 ml/min/ 1.73m2 GFR est non-AA 40 (L) >60 ml/min/1.73m2 Calcium 9.8 8.5 - 10.1 mg/ dL Bilirubin, total 0.7 0.2 - 1.0 mg/dL ALT (SGPT) 11 (L) 13 - 61 U/L AST (SGOT) 14 (L) 15 - 37 U/L Alk. phosphatase 62 45 - 117 U/L Protein, total 6.0 (L) 6.4 - 8.2 g/d L Albumin 2.0 (L) 3.5 - 4.7 g/dL Globulin 4.0 1.7 - 4.7 g/dL A-G Ratio 0.5 (L) 0.7 - 2 .8PHOSPHORUS Collection Time: 05/02/19 4:30 AMResult Value Ref Range Phosphorus 3.3 2.5 - 4.9 mg/dLBLOOD GAS, ARTERIAL Collection Time: 05/02/19 5:50 AMResult Value Ref Range pH 7.51 (H) 7.35 - 7.45 PCO2 47 32 - 48 mmHg PO2 74 (L) 83 - 108 mmHg CO2, TOTAL 39 (H) 19 - 24 mmol/L BICARBONATE 38 (H) 21 - 28 mmol/L O2 SAT 97 94 - 98 % BASE EXC ESS 12.7 (H) 0 - 3 mmol/L SITE RIGHT RADIAL MIRANDA'S TEST POSITIVE DEVICE VENTILATOR FIO2 40.0 % MODE Pressure regulated volume control PEEP/CPAP 5 Tidal volume 400 RAT E 15 Performed by [id number]:Xr Chest Sngl VResult Date: 05/02/2019Portable chest x- ray. PRIOR EXAM: X-ray 05/01/2019 HISTORY: Pneumonia FINDINGS:The heart is normal i n size. The mediastinum and pulmonary vessels areunremarkable. There is a left lower l obe infiltrate. Tracheostomy tube isgrossly unremarkable. There is a small right ple ural effusion.. The bonystructures are intact.IMPRESSION: Left lower lobe infil trate and small right pleural effusionunchanged since the prior exam. Study is limited due to patient positioning.Xr Chest PortResult Date: AP portable film of the chest clinical indication insertion of tracheostomy tub eStudy is compared to previous exam performed earlier in the day. Studydemon strates a tracheostomy tube in situ. Again noted are bilateral pleuraleffusions. In filtrate is present at the left base. There is no evidence ofpneumothorax.IMPRESSION : 1. Tracheostomy tube in situ. 2. No evidence of pneumothorax. 3.Other findin gs as aboveImpression:Active Hospital Problems Diagnosis Date Noted Scrotal r [facility] 04/21/2019 COPD with acute exacerbation (HCC) 04/19/2019 Acute on chronic respi ratory failure with hypoxia and hypercapnia (HCC)04/19/2019 Acute hypoxemic respira tory failure (HCC) 03/25/2019 Pneumonia 11/08/2018 NOAH. S/p trachPlan:Wi ll DC vastoec in view of NOAH , will use lopressor and metoprololContinue diureti cs if renal function remains stableFollow up labsRenal coverage for Dr.DgheimSri Yoni León MDJanuary 2019 Name Value Range Interpretation Code Description Data Harriett rce(s) Supporting Document(s ) ID Date Data Source [id number] 05/02/2019 01:26:41 PM EST [facility] Pt placed on trach collar 40%/ vital sig ns stable Name Value Range Interpretation Code Description Data [facility] rce(s) Supporting Document(s ) ID Date Data Source [id number] 05/02/2019 01:18:44 PM EST [facility] Progress NoteMID-[facility] ,[facility].Krystian Monae MD., F.C.C.PHeidi Hamilton MD., F.C.CGualbertoP. [address] [place] [id number] [place], [place] [id number] [phone]: Evelio Carlin Sex: male DOA: 04/19/2019Dat e of : 1950 Age: 68 y.o. LOS: LOS: 13 daysSubjective:Mr. Gayla beltran is a 68 y.o. year old male who is being seen for PATIENT HAVETRACHEOSTOMY FO R PULMONARY TOILET . HE IS DOING BETTER , MORE AWAKE TODAY . ET SECRETION ARE MINIMALCHEST XRAY BETTER , IMPROVED BASAL ATELECTASIS .ABG ARE ACCEPTABLE = 47, P O2 = 74 , H CO3 = 39 , B E= 38 AND SPO2 = 97% WBC= 16.1 HB/ HCT =9/30 WBC = 12 . 8Objective:Vital Signs:Patient Vitals for the past 24 hrs: BP Temp Pulse Resp SpO2 Tjwwxc29/18/20 1200 119/63 99.3 F (37.4 C) 91 22 95 % -05/02/19 1100 (!) 138/95 99. 3 F (37.4 C) 85 15 94 % -05/02/19 1000 109/55 99.3 F (37.4 C) 73 13 93 % - 0915 - - 73 13 94 % -05/02/19 0900 109/76 99.3 F (37.4 C) (!) 101 18 92 % -05/02/19 0800 (!) 126/94 99.3 F (37.4 C) (!) 108 19 96 % -05/02/19 0700 (!) 139/1 17 99.1 F (37.3 C) 100 24 99 % -05/02/19 0613 - - (!) 101 20 96 % -05/02/19 0600 125/76 - 99 14 96 % -05/02/19 0505 - - - - - 55 kg (121 lb 4.1 oz)05/02/19 0500 (!) 1 37/99 - (!) 105 20 95 % -01/18/20 0400 119/50 99.1 F (37.3 C) 95 16 100 % -05/02/19 0300 116/70 - 100 15 97 % -05/02/19 0200 135/85 - (!) 111 18 97 % -05/02/19 0100 (!) 110/92 - (!) 111 17 97 % -05/02/19 0000 (!) 145/93 99.3 F (37.4 C) (!) 110 18 99 % -05/01/19 2300 127/78 - (!) 111 16 95 % -05/01/19 2200 132/86 - 98 15 - - 0 2147 - - 98 16 96 % -05/01/19 2100 120/76 - 97 15 93 % -05/01/19 2000 (!) 145/91 98. 8 F (37.1 C) (!) 101 19 96 % -05/01/19 1930 (!) 151/93 98.4 F (36.9 C) 100 22 96 % -05/01/19 1900 (!) 147/115 98.2 F (36.8 C) 99 16 95 % -05/01/19 1830 (!) 154/91 98. 1 F (36.7 C) 93 16 94 % -05/01/19 1800 (!) 145/107 97.9 F (36.6 C) 93 20 99 % - 1745 (!) 168/112 97.9 F (36.6 C) 88 17 98 % -05/01/19 1730 (!) 169/93 97.7 F (36.5 C) 80 15 97 % -05/01/19 1715 (!) 169/105 97.7 F (36.5 C) 84 15 100 % -0 05/01/19 1700 (!) 165/96 97.5 F (36.4 C) 84 15 98 % -05/01/19 1647 - - 80 15 98 % -0 05/01/19 1645 171/90 97.5 F (36.4 C) 79 15 98 % -05/01/19 1630 166/89 97.3 F (36.3 C) 77 15 99 % -05/01/19 1615 173/90 97.3 F (36.3 C) 85 15 98 % -05/01/19 1600 (!) 171/91 97.2 F (36.2 C) 80 15 97 % -05/01/19 1545 (!) 193/138 97 F (36.1 C) 94 23 - -05/01/19 1530 160/70 - 97 16 95 % -05/01/19 1515 (!) 170/95 96.8 F (36 C) 98 15 95 % -05/01/19 1506 - - 90 15 92 % -05/01/19 1505 (!) 156/97 98.6 F (37 C) 86 10 10 0 % -Pulse OX:SpO2 Readings from Last 6 Encounters:05/02/19 95%04/16/19 100%03/16 07/01 99%03/17/19 92%02/19/19 96%02/18/19 92%@LASTSAO2(6)@Physical Exam:MORE AWAKE , COMFORTABLE . General: Alert, cooperative, no distress, appears stated age. Head: Normocephalic, without obvious abnormality, atraumatic. Eyes: Conjunctivae/corneas clear. PERRL, EOMs intact. No se: Nares normal. No drainage or sinus tenderness Throat: Lips, mucos a, and tongue normal Neck: Supple, symmetrical, trachea midline, no adenopathy,thyroid: no enlargement/tenderness/nodules, no carot id bruit and no JVD. Lungs: AIR EXCHANGE IS BETTER , WHEEZING ARE LEMUS BSIDED , RALESARE FURTHER BETTER to auscultation bilaterally. Chest Wall: No tenderness or deformity. Heart: Regular rate and rhythm, S1, S2 normal , no murmur, click,rub or NO gallop. Abdomen: Soft, non-tender. Bowel soun ds normal. No masses, No organomegaly. Extremities: Extremities CONTRACTED atraumatic, no cyanosis or edema. Pulses: 4+ bilaterally. Sk in: Skin color, texture, turgor normal. No rashes or lesions. Neurologic: CNII-X II intact. No focal motor or sensory deficit.Intake and Output:Last three patricio fts: 04/30 1901 - 05/02 0700In: 1170 [I.V.:950]Out: 3025 [Urine:2950; Drains: 25]Lab Results:Recent Results (from the past 24 hour(s))MAGNESIUM Collection Time: 4:30 AMResult Value Ref Range Magnesium 2.2 1.6 - 2.6 mg/dLCBC WITH AU TOMATED DIFF Collection Time: 05/02/19 4:30 AMResult Value Ref Range WBC 16.1 (H) 4. 8 - 10.6 K/uL RBC 3.08 (L) 4.70 - 6.00 M/uL HGB 9.4 (L) 14.0 - 18.0 g/dL HCT 30.1 (L ) 42.0 - 52.0 % MCV 97.7 (H) 81.0 - 94.0 FL MCH 30.5 27.0 - 35.0 PG MCHC 31.2 30.7 - 37.3 g/dL RDW 17.9 (H) 11.5 - 14.0 % PLATELET 551 (H) 130 - 400 K/uL MPV 9.5 9.2 - 11.8 FL NRBC 0.0 0 PER 100 WBC ABSOLUTE NRBC 0.00 0.0 - 0.01 K/uL NEUTROPHILS 89 (H) 48.0 - 72.0 % LYMPHOCYTES 7 (L) 18.0 - 40.0 % MONOCYTES 3 2.0 - 12.0 % EOSINOPH ILS 0 0.0 - 7.0 % BASOPHILS 0 0.0 - 3.0 % IMMATURE GRANULOCYTES 1 (H) 0 - 0.5 % AB S. NEUTROPHILS 14.4 (H) 2.3 - 7.6 K/UL ABS. LYMPHOCYTES 1.2 0.9 - 4.2 K/UL ABS. MONO CYTES 0.4 0.1 - 1.7 K/UL ABS. EOSINOPHILS 0.0 0.0 - 1.0 K/UL ABS. BASOPHILS 0.0 0.0 - 0.4 K/UL ABS. IMM. GRANS. 0.1 0.0 - 0.17 K/UL DF AUTOMATEDMETABOLIC PANEL, COMPREHENSI VE Collection Time: 05/02/19 4:30 AMResult Value Ref Range Sodium 146 (H) 136 - 145 mmol/L Potassium 4.0 3.5 - 5.1 mmol/L Chloride 109 (H) 98 - 107 mmol/L CO2 35 (H) 21 - 32 mmol/L Anion gap 6 (L) 10 - 20 mmol/L Glucose 80 74 - 106 mg/dL BUN 43 (H) 7 - 18 mg/dL Creatinine 1.79 (H) 0.70 - 1.30 mg/dL GFR est AA 49 (L) >60 ml/min/ 1.73m2 GFR est non-AA 40 (L) >60 ml/min/1.73m2 Calcium 9.8 8.5 - 10.1 mg/ dL Bilirubin, total 0.7 0.2 - 1.0 mg/dL ALT (SGPT) 11 (L) 13 - 61 U/L AST (SGOT) 14 (L) 15 - 37 U/L Alk. phosphatase 62 45 - 117 U/L Protein, total 6.0 (L) 6.4 - 8.2 g/d L Albumin 2.0 (L) 3.5 - 4.7 g/dL Globulin 4.0 1.7 - 4.7 g/dL A-G Ratio 0.5 (L) 0.7 - 2 .8PHOSPHORUS Collection Time: 05/02/19 4:30 AMResult Value Ref Range Phosphorus 3.3 2.5 - 4.9 mg/dLBLOOD GAS, ARTERIAL Collection Time: 05/02/19 5:50 AMResult Value Ref Range pH 7.51 (H) 7.35 - 7.45 PCO2 47 32 - 48 mmHg PO2 74 (L) 83 - 108 mmHg CO2, TOTAL 39 (H) 19 - 24 mmol/L BICARBONATE 38 (H) 21 - 28 mmol/L O2 SAT 97 94 - 98 % BASE EXC ESS 12.7 (H) 0 - 3 mmol/L SITE RIGHT RADIAL MIRANDA'S TEST POSITIVE DEVICE VENTILATOR FIO2 40.0 % MODE Pressure regulated volume control PEEP/CPAP 5 Tidal volume 400 RAT E 15 Performed by [id number]:Recent Labs 05/02/200450 05/01/200501PH 7.51* 7.50*P CO2 47 48PO2 74* 71*HCO3 38* 37*FIO2 40.0 --Recent Glucose Results:Lab ResultsComp onent Value Date/Time GLU 80 05/02/2019 04:30 AM@[email or web address] Results Procedure Component Value Units Date/Time CULTURE, BLOOD [[id number]] Col lected: 04/25/19 1210 Order Status: Completed Specimen: Blood Updated: 1352 Special Requests: NO SPECIAL REQUESTS Culture result: NO GROWTH 5 DA YS CULTURE, BLOOD [[id number]] Collected: 04/25/19 1205 Order Status: Completed S pecimen: Blood Updated: 04/30/19 1352 Special Requests: NO SPECIAL REQUESTS C ulture result: NO GROWTH 5 DAYS CULTURE, RESPIRATORY/SPUTUM/BRONCH W GRAM STAIN [ [id number]] (Abnormal)(Susceptibility) Collected: 04/26/19 1700 Order Status: Completed Specimen: Sputum from Tracheal Aspirate Updated:04/29/19 1051 Special Requests: NO SPECIAL REQUESTS GRAM STAIN 10-25 WBC/lpf <10 EPI/lpf FEW GRAM P OSITIVE RODS Culture result: MODERATE PSEUDOMONAS AERUGINOSA C. DIFFICILE (DNA ) [[id number]] Collected: 04/27/19 0915 Order Status: Completed Specimen: Stool Upda mikel: 04/27/19 1246 C. difficile (DNA) NEGATIVE Comment: This specimen is nega tive for toxigenic C difficile by DNAamplification. Repeat testing is not recommended for confirmation, samplesreceived within 7 days of this ne gative result will be rejected. C. DIFFICILE (DNA) [[id number]] (Abnormal) Collected: 04/25/19 1715 Order Status: Completed Specimen: Stool Updated: 04/26/19 1551 C. difficile (DNA) TEST RESULT IS INCONCLUSIVE. PLEASE SUBMIT A NEW SPECIM EN FOR ANALYSIS. CULTURE, URINE [[id number]] Collected: 04/25/19 1147 Order Status: Completed Specimen: Urine from Clean catch Updated: Special Requests : NO SPECIAL REQUESTS Culture result: NO GROWTH 1 DAY C. DIFFICILE (DNA) [[id number]] Order Status: Sent Specimen: Stool CULTURE, BLOOD [[id number]] Collected: 0 04/20/19 1440 Order Status: Completed Specimen: Blood Updated: 04/26/19 0818 Special Requests: NO SPECIAL REQUESTS Culture result: NO GROWTH 6 DAYS CULTURE , BLOOD [[id number]] Collected: 04/20/19 1447 Order Status: Completed Specimen: Bloo d Updated: 04/26/19 0818 Special Requests: NO SPECIAL REQUESTS Culture result: NO GROWTH 6 DAYS CULTURE, BLOOD [[id number]] (Abnormal) Collected: 04/19/19 1005 Ord er Status: Completed Specimen: Blood Updated: 04/22/19 0731 Special Request s: NO SPECIAL REQUESTS GRAM STAIN GRAM POSITIVE COCCI IN CLUSTERS ANAEROBIC BOT TLE CALLED TO AND READ BACK BY ROB LEDEZMARN, ED, 0953 ON 04/20/19 TORISM IRAGLIA Culture result: STAPHYLOCOCCUS EPIDERMIDIS : Refer to previous culture( s) for susceptibilityresults CULTURE, BLOOD [[id number]] (Abnormal) (Susceptibility ) Collected: Order Status: Completed Specimen: Blood Updated: 12/02 0729 Special Requests: NO SPECIAL REQUESTS GRAM STAIN GRAM POSITIVE COCC I IN CLUSTERS ANAEROBIC BOTTLE CALLED TO AND READ BACK BY ROB LEDEZMA RN, ED, AT 0953 ON 04/20/19 TORISMIRAGLIA Culture result: STAPHYLOCOCCUS EPIDERMIDISImage s:[email or web address] Chest Sngl VResult Date: 05/02/2019Portable chest x-ray. PRIOR EXA M: X-ray 05/01/2019 HISTORY: Pneumonia FINDINGS:The heart is normal in size. Th e mediastinum and pulmonary vessels areunremarkable. There is a left lower l obe infiltrate. Tracheostomy tube isgrossly unremarkable. There is a small right ple ural effusion.. The bonystructures are intact.IMPRESSION: Left lower lobe infil trate and small right pleural effusionunchanged since the prior exam. Study is limited due to patient positioning.Xr Chest Sngl VResult Date: 05/01/2019AP portable film of the chest clinical indication pneumonia Study is c ompared toprevious examination of April 30, 2019. Again noted is an extensive left m idlobe and lower lung infiltrate as well as a left pleural effusion. Also noted juancarlos ri ght perihilar infiltrate.IMPRESSION: Bilateral infiltrates and left pleural e ffusion ,Little change fromprior studyXr Chest Sngl VResult Date: 04/30/2019AP por table film of the chest clinical indication pleural effusion. Study iscompared to pr evious examination April 29, 2019. Study demonstrates a largeleft pleural effusio n and again infiltrate in the left perihilar and infrahilarregion. Smaller right pleu ral effusion is present. Prominence is noted in theright hilar region this may repres ent infiltrate or mass.IMPRESSION: 1. Bilateral pleural effusions left greater than right. 2. Littlechange in extensive left hilar and infrahilar infiltrate. 3. Marked prominenceto right hilar region differential given aboveXr Chest Sngl VR esult Date: 04/29/2019XR CHEST SNGL V CLINICAL INDICATION PROVIDED:. "pneumonia / c h f / pl ,effusion." TECHNIQUE.: 1 views, chest. COMPARISON:. 04/28/2019. FINDINGS: . Thepatient has been extubated in the interval. The pericardial/cardiac silhou etteremains enlarged in the transverse dimension. There is mild pulmonary vascu larcongestion, not appreciably changed in the interval. There is a small leftpleural e ffusion, similar in size to the previous study, with adjacent densityin the left lower lung, which may represent atelectasis. There is nopneumothorax. There is an abn ormal right heart contour which may representatelectasis in the right middle lobe. Follow-up radiographs are recommended.IMPRESSION:. Interval extuba tion. Mild congestive failure with small lefteffusion, not appreciably changed in the interval. Abnormal right pericardialcontour may represent atelect asis in the right middle lobe. Follow-upradiographs are recommended.Xr Chest Sngl VResult Date: 04/28/2019AP portable film of the chest clinical indication pn eumonia Study is compared toprevious examination of April 25, 2019. Again n oted is endotracheal tube insitu, the tip is above the tian. Extensive bibasal hazi ness is notedinfiltrate versus congestive change. Also noted is marked prominence topulmonary vasculature. Heart size is difficult to evaluate. There may be smal lbilateral pleural effusions.IMPRESSION: 1. Endotracheal tube in satisfactory positi on. 2. Extensive bibasalhaziness. 3. Prominence to pulmonary vascular marking s. 4. Possible bilateralsmall pleural effusionsXr Chest Sngl VResult Date: 04/15CHEST one view HISTORY: Pneumonia. COPD. COMPARISON: 04/23/2019. There is a p oorinspiratory effort which compromises this interpretation. The patient's chinalso o bscures the right upper lobe. A repeat study is suggested. There has beenno change o f small bilateral pleural effusions.There is no gross evidence ofcongestion, infiltra tasha, or a left pneumothorax.IMPRESSION: No significant change. Limited study. Poor inspiratory effort.Xr Abd (kub)Result Date: 04/28/2019Abdomen clinical indication odalis luate J-tube position. Study demonstrates aJ-tube projected over the upper abdomen . Without contrast material one cannot becertain exactly where the tube is. The re appears to be a mild ileus pattern.IMPRESSION: J-tube projected ove r upper abdomenXr Abd (kub)Result Date: 04/05/2019XR ABD (KUB) CLINICAL INDICATI ON PROVIDED:. "assess J tube position."TECHNIQUE.: An initial AP imag e of the abdomen was acquired. Additional APimages of the abdomen were acquired af ter the hand-injection of a small volumeof radiopaque contrast by the patient's mason se into the patient's J-tube.COMPARISON:. 04/02/2019. FINDINGS:. The tip of the 2 projects over the midabdomen, at the level of the mid jejunum. Post injection images d emonstrateopacification of loops of mid small bowel. There is no extraluminal contrast appreciated. A large volume of stool projects over the distal colon/rectum.Densities p roject over the lower lungs, right greater than left. Considercorrelation with ches t radiographs.IMPRESSION:. Injected radiopaque contrast appears to be contai nataly within thelumen of the mid small bowel. There is no evidence of extraluminal con trast.Additional findings and recommendations as above.Xr Abd (kub)Result Date: 2018KUB 2 view(s) History: Evaluate J-tube. Comparison: 11/22/2018. There is a newJ-t ube overlying the mid abdomen with kinking involving its superior andinferior porti on overlying the mid abdomen. These findings were discussed withsabine Mora at 3:4 0 PM today.. There is mild ileus of the small bowel butthere is no evidence of obstruc tion, radiopaque gallstones, or left kidneystones or an appendicolith. There are possible right kidney stones. Absence ofan appendicolith it does not exclude a ppendicitis. CT is suggested if clinicallyindicated. Old rib fractures a re noted.IMPRESSION: Kinking of J-tube in 2 locations. Possible right kidney stonesI leus.Xr Gastrograffin Upper GiResult Date: 04/29/2019History: J-tube placement. FIND INGS: A director of housing film of the abdomen reveals a tubeoverlying the abdomen. The bowel gas pattern is nonspecific in nature. Aftercontrast was injected through the t ube contrast appears to fill the jejunum.Therefore the tube appears to be in good position in the jejunum.IMPRESSION: Jejunostomy tube with its tip within the jejunum.Ct Chest Abd Pelv Wo ContResult Date: 04/20/2019Referring Physician: SHAYLEE HILLS Patient Name: EVELIO CARLIN FINAL REPORTFROM [facility] EXAM: C T chest without contrast and CT abdomen pelviswithout contrast DATE OF EXAM: 20:52:12 IMAGES: [id number] HISTORY: reducedbreath sounds right lung, LLQ ten derness Comparison: 03/14/19 and 12/21/18FINDINGS: Axial images of the ches t, abdomen and pelvis are obtained without ivcontrast. Chest: Mediastinal assessmen t is limited without contrast. Imagequality limited by artifacts. Patchy lung opacit ies right greater than leftsimilar to prior. Small pleural effusions. Vascular includ ing coronarycalcifications. Mediastinum appears shifted to the right. Left hemid iaphragm iselevated. Abdomen and pelvis: Nonspecific bowel pattern, with post nena gicalchanges on the left. No definite free air. Organ assessment limited without iv contrast. No significant free fluid or free air. No bowel obstruction or abscessseen . Catheter and air in the bladder which is not well assessed. Left hiphardware part ially seen with old fracture deformity. G-J tube is present.Ventral hernia right of midline at abdominal wall with multiple small bowelloops without obstructive pattern. Mild right muscle swelling with possiblehematoma and calcification at ri t groin image 117/120. Degenerative bonychanges. Multiple likely chronic com pression deformities at thoracic and lumbarspine. Bilateral L5-S1 spondylolys is and anterolisthesis.IMPRESSION: Right greater than left lung infiltrates and e ffusions. No bowelobstruction. 2 cm hyperdensity at a bowel loop in left pel vis image 90/120,possibly ingested material, or a tube fragment or post surgical charles ge. Ventralabdominal hernia seen. See above. One or more of the following dose reduct iontechniques were used: automated exposure control, adjustment of the mA and/or kVa ccording to patient size, use of iterative reconstructive technique. THISDOCUMENT H BEEN ELECTRONICALLY SIGNED Marcie Edge MD 04/20/2019 22:43 GINA Jenkins.Please call Katja robert [employer] Consultant [phone] ([phone]) with questions. This reportwas electronically signed by: Marcie Edge MD 04/20/2019 10:44 PMUs Retroperitoneum CompResult Date: 04/23/2019Retroperitoneal sonogram clinical indication acute kidney insufficiency S tudyis limited secondary to position of the patient and the patient'sinability t o cooperate. The abdominal aorta and inferior vena cava are obscured.The right kidney measures 9.2 cm. There is no evidence of hydronephrosis. Theleft kidney measures 9.5 cm. There is no evidence of hydronephrosis. Foleycatheter is seen wi thin the bladder.IMPRESSION: 1. Limited study. 2. No evidence of hydronephrosisX r Chest PortResult Date: 05/01/2019AP portable film of the chest clinical indication in sertion of tracheostomy tubeStudy is compared to previous exam performed earlier in . Studydemonstrates a tracheostomy tube in situ. Again noted are bilateral pleur aleffusions. Infiltrate is present at the left base. There is no evidence ofpneumo thorax.IMPRESSION: 1. Tracheostomy tube in situ. 2. No evidence of pneumothorax. 3. Other findings as aboveXr Chest PortResult Date: 04/26/2019CHEST ONE VIEW HISTORY: I ntubation. COMPARISON: Previous studies. The patienthas been intubated. The endotrach eal tube tip is approximately 5.9 cms. abovethe tian. The left pleural effusi on has resolved. There has been no change ofa small right pleural effusion. No other s ignificant change is noted.IMPRESSION: Endotracheal tube tip approximately 5.9 cms. above the tian.Resolution of left pleural effusion.Xr Chest PortResult Pan e: 04/23/2019XR CHEST PORT CLINICAL INDICATION PROVIDED:. "Verification of PICC linepla cement." TECHNIQUE.: 2 AP views, chest. COMPARISON:. 04/19/2019. FINDINGS:. Thetip of the vascular catheter projects over the right axilla, likely a midlinecatheter p laced on 04/01/2019. The pericardial/cardiac silhouette is enlarged inthe transverse dimension. There is mild pulmonary vascular congestion andinterstitial edema. There is suggestion of small bilateral pleural effusions.Density in the lung bases may represent adjacent atelectasis or superimposedlower lung infiltrates. Foll ow-up radiographs are recommended.IMPRESSION:. 1. Midline cat heter projecting over the right axilla. 2. Mildcongestive failure with interstitial edema and small bilateral pleuraleffusions.Xr Chest PortResult Pan e: 04/19/2019History: Respiratory difficulty. FINDINGS: A frontal portable view of the chestis submitted for interpretation and is compared to the prior study of04/06/2019 . EKG leads overlie the chest. A right-sided midline catheter is notedin situ. The ca rdiac silhouette measures at the upper limits of normal. There ispatchy opacity noted at the lung bases, left greater than right, which may beinfiltrative or atelectatic in nature. A small left pleural effusion is noted.Mediastinal and hilar structures a re unremarkable.IMPRESSION: Basilar infiltrative change left greater than ri ght. Small leftpleural effusion.Xr Chest PortResult Date: 04/06/2019CHEST one vie w HISTORY: Pneumonia. COMPARISON: 03/25/2019. There is a poorinspiratory effort which compromises this interpretation. A repeat study issuggested. There is discoid atel ectasis and/or subsegmental left lower lobeatelectasis along the left hemidiaph ragm. .There is no gross evidence ofcongestion, effusions or pneumothorax. IMPRESSION: Possible left lower lobe atelectasis. Poor inspiratory effort.Dup krissy Lower Ext Venous LeftResult Date: 04/26/2019LEFT LOWER EXTREMITY DOPPLER Hi story: Pain and swelling. High-resolution linearsonography of the left lower extre mity was performed using Color Doppler Flowand Duplex Doppler spectral sonograp hy. Findings: There is no evidence of deepvein thrombosis. The common femoral, visualized portions of the greatersaphenous, proximal, mid and distal superficial fem oral and popliteal veins werepatent. Spontaneous and phasic flow was noted. N ormal compression and responseto augmentation was noted. The anterior tibial vein and posterior tibial veinare not documented. The peroneal vein is patent. .IMPRESSION: No evidence of deep vein thrombosis. Suboptimal study.Duplex Upper Ext Venous LeftResult Date: 04/23/2019DUPLEX UPPER EXTREMITY-VENOUS LEFT HISTORY: Swelling left upperextremi ty-evaluate for DVT PRIOR: Multiple: Most recent February 10, 2019: "Noevidence of deep vein thrombosis." TECHNICAL FACTORS: High resolution lineargrayscale, color-f low and Doppler evaluation of the left upper extremity wasperformed from the neck to the antecubital fossa. FINDINGS: Normal antegradeflow, compressibility of the de ep venous vasculature, except for the internaljugular and subclavian veins due to their positions/anatomic location, as wellas augmentation of flow/phasicity is identified within the visualized portionsof the deep venous system. No filling defec ts are identified that would besuspicious for, or lead customer service representative of DVT.IMPRESSION : 1. No sonographic findings suggestive of thrombosis within thevisualized portions of the deep venous system of the left upper extremity.Duplex Upper Ext Venous RightR esult Date: 04/26/2019RIGHT UPPER EXTREMITY DOPPLER HISTORY: Pain and swelling. High -resolution linearsonography of the right upper extremity was performed using [place] r Doppler Flowand Duplex Doppler Spectral sonography. There is no evidence of a de ep veinthrombosis. The cephalic vein could not be visualized. The right internaljug ular, subclavian, axillary, brachial and basilic veins are patent andcompletely c ompressible. Spontaneous and phasic flow is noted.IMPRESSION: No evidence of deep ve in thrombosis. Suboptimal study.Medications:Current Facility-Admin istered MedicationsMedication Dose Route Frequency HYDROmorphone (PF) (DILAUDID) injection 0.5 mg 0.5 mg IntraVENous Q3H PRN enalaprilat (VASOTEC) injection 1.25 mg 1.25 mg IntraVENous Q6H LORazepam (ATIVAN) injection 1 mg 1 mg IntraVENous QHS vi ts A and D-white pet-lanolin (A&D) ointment Topical PRN furosemide (LASIX) injectio n 20 mg 20 mg IntraVENous BID methylPREDNISolone (PF) (SOLU-MEDROL) in jection 40 mg 40 mg IntraVENous Q12H bacitracin 500 unit/gram packet 1 Packet 1 Packet Topical TID vancomycin 50 mg/mL oral solution (compounded) 125 mg 125 m g Per G Tube Q6H meropenem (MERREM) 500 mg in 0.9% sodium chloride (MBP/ADV) 50 mL MBP 0.5 gIntraVENous Q12H lamoTRIgine (LaMICtal) tablet 100 mg 100 mg Per G T ube QPM lamoTRIgine (LaMICtal) tablet 50 mg 50 mg Per G Tube DAILY sodium chloride (NS) flush 5-40 mL 5-40 mL IntraVENous PRN pantoprazole (PROTONIX) 40 mg in 0.9% so dium chloride 10 mL injection 40 mgIntraVENous DAILY acetaminophen (TYLE NOL) tablet 650 mg 650 mg Oral Q6H PRN ondansetron (ZOFRAN) injection 4 mg 4 m g IntraVENous Q6H PRN magnesium hydroxide (MILK OF MAGNESIA) 400 mg/5 mL oral susp ension 30 mL 30mL Oral DAILY PRN albuterol-ipratropium (DUO-NEB) 2.5 MG-0 .5 MG/3 ML 3 mL Nebulization Q6HWA RT acetylcysteine (MUCOMYST) 100 mg/mL (10 %) nebulizer solution 400 mg 4 mLInhalation TID RT miconazole (MICOTIN) 2 % cream Topical BID budesonide (PULMICORT) 500 mcg/2 ml nebulizer suspension 500 mcg N ebulizationBID RT cinacalcet (SENSIPAR) tablet 60 mg 60 mg Oral DAILY heparin (porcine) injection 5,000 Units 5,000 Units SubCUTAneous [id number] Problems: Pneum onia (11/08/2018) Acute hypoxemic respiratory failure (HCC) (03/25/2019) COPD with ac manzanita exacerbation (HCC) (04/19/2019) Acute on chronic respiratory failure with hypoxia and hypercapnia (HCC)(04/19/2019) Scrotal rash (04/21/2019)Assessment: 1 ACUTE H YPERCAPNIC AND HYPOXIC RESPIRATORY FAILURE DUE TO SEVERE COPD/ PNEUMONIA R ML , R L L IMPROVING1. ATELECTASIS R L L , L L L RESOLVED2. PLEURAL EFFUSION ARE RESOLVING3. SEVERE COPD 4. SEVERE METABOLIC ENCEPHALOPATHY IMPROVED POS T TRACHEOSTOMY 05/01/20195. SEVERE MENTAL RETARDATION6. SEIZURE VS TREMORS ON LAMICTAL SEEN BY DR SCHNEIDER 7. PNEUMONIA - G N R , PSEUDOMONAS AERUGINOSA8. SEPS IS L A = 2.5 RESOLVING 9. BACTEREMIA G + COCCI - STAPH EPIDERMITIS 10. SEVERE MAL NUTRITION ,S/P J TUBE INSERTION 05/01/201911. ALB = 1.4 SEVERE HYPOA LBUMINEMIA Plan: 1 TRAIL OF T C 40 %1. DUO NEB Q 4 H2. MUCOMYST 10 % A MINI NEB Q 8 H3. LASIX 20 MG I V P B I D PER RENAL - DR FRANKEL 4. DISCUSS ED WITH RN ON BED SIDE 5 CONT MEROPENEM AND VANCOMYCIN 6 CONT F EEDING PER DR MOTLEY7 PROSTAT FOR SEVERE HYPOALBUMINEMI 8 , I V SOLUM EDROL FOR COPD 9 MUCOMYST TO LOOSEN TRACHEOBRONCHIAL SECTERTIONS NELDA ST P T TO MOBILIZE SECRETIONS 8 CONT CHEST P T Krystian Monae MD F.C.C.PGualbertoCarraway Methodist [facility] 20191:07 PM Name Value Range Interpretation Code Description Data Harriett rce(s) Supporting Document(s ) ID Date Data Source [id number] 05/02/2019 08:57:55 AM EST [facility] Portable chest x-ray.PRIOR EXAM: X-ray HISTORY: Pneumonia FINDINGS: The heart is normal in size. The mediastinum and pulmonary vessels areunremarkable. There is a left lower lobe infiltrate. Tracheo stomy tube is grosslyunremarkable. There is a small right pleural effusion.. The bony structures are intact.IMPRESSION:Left lower lobe infiltrate and small right pleural effusion unchanged since theprior exam. Study is limited due to patient positioning. S igning date/time: 05/02/2019 8:57 AMSigned by: KARO RAMIREZ Name Value Range Interpretation Code Description Data Harriett rce(s) Supporting Document(s ) ID Date Data Source [id number] 05/02/2019 08:49:04 AM EST [facility] ID Progress Note05/02/2019Subjective:Even ts notedAfebrileBlood cx remain negativeResp cx with pseudomonasS/p tracheostomy and jejunostomy tube placement.On vent support.Wbc elevated to 16,100Objective: Review of SystemsPatient is unable to provideVitals:Patient Vitals for the pas t 24 hrs: BP Temp Pulse Resp SpO2 Lmcjwq02/18/20 0800 (!) 126/94 99.3 F ( 37.4 C) (!) 108 19 96 % -05/02/19 0700 (!) 139/117 99.1 F (37.3 C) 100 24 99 % -0 05/02/19 0613 - - (!) 101 20 96 % -05/02/19 0600 125/76 - 99 14 96 % -05/02/19 0505 - - - - - 55 kg (121 lb 4.1 oz)05/02/19 0500 (!) 137/99 - (!) 105 20 95 % -05/02/19 0 400 119/50 99.1 F (37.3 C) 95 16 100 % -05/02/19 0300 116/70 - 100 15 97 % - 0200 135/85 - (!) 111 18 97 % -05/02/19 0100 (!) 110/92 - (!) 111 17 97 % -05/02 0000 (!) 145/93 99.3 F (37.4 C) (!) 110 18 99 % -05/01/19 2300 127/78 - (!) 111 16 95 % -05/01/19 2200 132/86 - 98 15 - -05/01/197 - - 98 16 96 % -05/01/19 2100 120/76 - 97 15 93 % -05/01/19 2000 (!) 145/91 98.8 F (37.1 C) (!) 101 19 96 % -05/01/19 1930 (!) 151/93 98.4 F (36.9 C) 100 22 96 % -05/01/19 1900 (!) 147/115 9 8.2 F (36.8 C) 99 16 95 % -05/01/19 1830 (!) 154/91 98.1 F (36.7 C) 93 16 94 % -05/01/19 1800 (!) 145/107 97.9 F (36.6 C) 93 20 99 % -05/01/19 1745 (!) 168/112 97 .9 F (36.6 C) 88 17 98 % -01/17/20 1730 (!) 169/93 97.7 F (36.5 C) 80 15 97 % - 1715 (!) 169/105 97.7 F (36.5 C) 84 15 100 % -05/01/19 1700 (!) 165/96 97.5 F (36.4 C) 84 15 98 % -05/01/19 1647 - - 80 15 98 % -05/01/19 1645 171/90 97.5 F (3 6.4 C) 79 15 98 % -05/01/19 1630 166/89 97.3 F (36.3 C) 77 15 99 % -05/01/19 1615 1 73/90 97.3 F (36.3 C) 85 15 98 % -05/01/19 1600 (!) 171/91 97.2 F (36.2 C) 80 15 97 % -05/01/19 1545 (!) 193/138 97 F (36.1 C) 94 23 - -05/01/19 1530 160/70 - 97 16 95 % -05/01/19 1515 (!) 170/95 96.8 F (36 C) 98 15 95 % -05/01/19 1506 - - 90 15 9 2 % -05/01/19 1505 (!) 156/97 98.6 F (37 C) 86 10 100 % -05/01/19 1200 151/87 98.4 F (36.9 C) 78 23 99 % -05/01/19 1100 137/85 - 76 19 99 % -05/01/19 1000 (!) 150/95 - 75 24 95 % -05/01/19 0900 145/80 - 79 23 93 % -Tmax: Temp (24hrs), Av.1 F (36. 7 C), Min:96.8 F (36 C), Max:99.3 F(37.4 C)Physical Exam:General: Awake on vent no distressEyes: Conjunctivae/corneas clear. PERRLNeck: Supple, symmetrical, trachea midline, no adenopathyLungs: bilateral breath sounds with basal crackles..Heart : Regular rate and rhythm, S1, S2 normal, no murmurAbdomen: Soft, non-tender. Bowel sounds normal. No masses, Noorganomegaly.peg+J tube+Back: No CVA tenderness.Extremities: No cyanosis ,chronic lymphedema .Pulses: 2+ and symmetric all extremities.Skin: Skin color, texture, turgor normal. No rashes or lesionsLymph nodes: Cervical, supraclavicular, and axillary nodes normal.Current Facility-A dministered MedicationsMedication Dose Route Frequency HYDROmorphone (PF) (DILAUDID) injection 0.5 mg 0.5 mg IntraVENous Q3H PRN enalaprilat (VASOTEC) injection 1.25 mg 1.25 mg IntraVENous Q6H LORazepam (ATIVAN) injection 1 mg 1 mg IntraVENous QHS vi ts A and D-white pet-lanolin (A&D) ointment Topical PRN furosemide (LASIX) injectio n 20 mg 20 mg IntraVENous BID methylPREDNISolone (PF) (SOLU-MEDROL) in jection 40 mg 40 mg IntraVENous Q12H bacitracin 500 unit/gram packet 1 Packet 1 Packet Topical TID vancomycin 50 mg/mL oral solution (compounded) 125 mg 125 m g Per G Tube Q6H meropenem (MERREM) 500 mg in 0.9% sodium chloride (MBP/ADV) 50 mL MBP 0.5 gIntraVENous Q12H lamoTRIgine (LaMICtal) tablet 100 mg 100 mg Per G T ube QPM lamoTRIgine (LaMICtal) tablet 50 mg 50 mg Per G Tube DAILY sodium chloride (NS) flush 5-40 mL 5-40 mL IntraVENous PRN pantoprazole (PROTONIX) 40 mg in 0.9% so dium chloride 10 mL injection 40 mgIntraVENous DAILY acetaminophen (TYLE NOL) tablet 650 mg 650 mg Oral Q6H PRN ondansetron (ZOFRAN) injection 4 mg 4 m g IntraVENous Q6H PRN magnesium hydroxide (MILK OF MAGNESIA) 400 mg/5 mL oral susp ension 30 mL 30mL Oral DAILY PRN albuterol-ipratropium (DUO-NEB) 2.5 MG-0 .5 MG/3 ML 3 mL Nebulization Q6HWA RT acetylcysteine (MUCOMYST) 100 mg/mL (10 %) nebulizer solution 400 mg 4 mLInhalation TID RT miconazole (MICOTIN) 2 % cream Topical BID budesonide (PULMICORT) 500 mcg/2 ml nebulizer suspension 500 mcg N ebulizationBID RT cinacalcet (SENSIPAR) tablet 60 mg 60 mg Oral DAILY heparin (porcine) injection 5,000 Units 5,000 Units SubCUTAneous [id number]:Recent Labs 05/01/2007WBC 16.1* 11.9* 13.0*HGB 9.4* 10.2* 9.6*PLT 551* 5 77* 581*BUN 43* 44* 45*CREA 1.79* 1.93* 1.96*SGOT 14* 15 --AP 62 72 --TBILI 0. 7 0.4 --Cultures:Lab ResultsComponent Value Date/Time Culture result: MODERATE PSEUD OMONAS AERUGINOSA (A) 04/26/2019 05:00 PM Culture result: NO GROWTH 5 DAYS 020 12:10 PM Culture result: NO GROWTH 5 DAYS 04/25/2019 12:05 PMRadiology:Xr Chest Po rtResult Date: 05/01/2019AP portable film of the chest clinical indication insertion of tracheostomy tubeStudy is compared to previous exam performed earlier in the day. Studydemonstrates a tracheostomy tube in situ. Again noted are bilateral pleurale ffusions. Infiltrate is present at the left base. There is no evidence ofpneumothora x.IMPRESSION: 1. Tracheostomy tube in situ. 2. No evidence of pneumothorax. 3.Other findings as aboveAssessment: Staph sepsis. Aspiration pneumonia (pseudomonas) Acut e COPD exacerbation. Acute respiratory failure. Pleural effusion. Dysphagia Fever Plan:1. Continue meropenem2. Continue oral vancomycin prophylaxis doseFoluke Eloisa zapata MDJanuary 20198:43 AM Name Value Range Interpretation Code Description Data Harriett rce(s) Supporting Document(s ) ID Date Data Source [id number] 05/02/2019 07:19:49 AM EST [facility] Bedside and Verbal shift change report carol pham to Mayi Greer RN (oncomingnurse) by Anne Ha (offgoing nurse). Report included the following information SBAR,Intake/Output, MAR, Recent Results and Cardiac Rhythm Sinus Tach. Name Value Range Interpretation Code Description Data Harriett rce(s) Supporting Document(s ) ID Date Data Source [id number] 05/02/2019 05:53:09 AM EST [facility] Name Value Range Interpretation Description Data Sup porting Code Source(s) Document(s ) pH of Arterial 7.51 7.35-7.4 Above high normal [facility] - Good blood 5 [facility] Carbon dioxide 47 mmHg 32-48 [facility] - Good [Partial Taoist pressure] in Hospital Arterial blood Oxygen 74 mmHg 83-108 Below low normal [facility] - Good [Partial Taoist pressure] in Hospital Arterial blood Carbon 39 19-24 Above high normal [facility] - Good dioxide, total mmol/L Taoist [Moles/volume] Hospital in Arterial blood Bicarbonate 38 21-28 Above high normal [facility] - Go od [Moles/volume] mmol/L Taoist in Arterial Hospital blood Oxygen 97 % 94-98 [facility] - Good saturation in Taoist Blood [facility] Base excess in 12.7 0-3 Above high normal [facility] - Good Arterial blood mmol/L Taoist by calculation Hospital Body site [facility] Good [facility] Arterial [facility] - Good patency Wrist Taoist artery --pre Hospital arterial puncture Oxygen gas [facility] - Good flow Oxygen [facility] system Oxygen/Inspire 40.0 % [facility] - Good d gas [facility] Respiratory Hospital system --on ventilator Ventilation [facility] - Good mode Taoist [Identifier] Hospital Ventilator PEEP 5 [facility] - Good Respiratory Taoist system Hospital Tidal volume 400 [facility] - Good setting [facility] Hospital Respiratory 15 [facility] - Good rate [facility] Service 18990 [facility] - Good comment [facility] ID Date Data Source [id number] 05/02/2019 05:38:09 AM EST [facility] Name Value Range Interpretation Description Data Sup porting Code Source(s) Document(s ) Leukocytes 16.1 4.8-10.6 Above high normal [facility] - [#/volume] in K/uL Good Blood by Taoist Automated count [facility] Erythrocytes 3.08 4.70-6.0 Below low normal [facility] - [#/volume] in M/uL 0 Good Blood by Taoist Automated count Hospital Hemoglobin 9.4 g/dL 14.0-18. Below low normal [facility] - [Mass/volume] in 0 Good Blood [facility] Hematocrit 30.1 % 42.0-52. Below low normal [facility] - [Volume 0 Good Fraction] of Taoist Blood by Hospital Automated count Erythrocyte mean 97.7 FL 81.0-94. Above high normal [facility] - corpuscular 0 Good volume [Entitic Taoist volume] by Hospital Automated count Erythrocyte mean 30.5 PG 27.0-35. [facility] - corpuscular 0 Good hemoglobin Taoist [Entitic mass] Hospital by Automated count Erythrocyte mean 31.2 30.7-37. [facility] - corpuscular g/dL 3 Good hemoglobin [facility] Hospital [Mass/volume] by Automated count Erythrocyte 17.9 % 11.5-14. Above high normal [facility] - distribution 0 Good width [Ratio] by Taoist Automated count Hospital Platelets 551 K/uL 130-400 Above high normal [facility] - [#/volume] in Good Blood by Taoist Automated count Hospital Platelet mean 9.5 FL 9.2-11.8 [facility] - volume [Entitic Good volume] in Blood Taoist by Automated Hospital count Nucleated 0.0 PER 0 [facility] - erythrocytes/100 100 WBC Good leukocytes Taoist [Ratio] in Blood Hospital Nucleated 0.00 0.0-0.01 [facility] - erythrocytes K/uL Good [#/volume] in [facility] Segmented 89 % 48.0-72. Above high normal [facility] - neutrophils/100 0 Good leukocytes in [facility] Lymphocytes/100 7 % 18.0-40. Below low normal [facility] - leukocytes in 0 [facility] Blood [facility] Monocytes/100 3 % 2.0-12.0 [facility] - leukocytes in [facility] Blood [facility] Eosinophils/100 0 % 0.0-7.0 [facility] - leukocytes in [facility] Blood [facility] Basophils/100 0 % 0.0-3.0 [facility] - leukocytes in [facility] Blood [facility] Immature 1 % 0-0.5 Above high normal [facility] - granulocytes/100 Good leukocytes in Taoist Blood by Hospital Automated count Segmented 14.4 2.3-7.6 Above high normal [facility] - neutrophils K/UL Good [#/volume] in [facility] Lymphocytes 1.2 K/UL 0.9-4.2 [facility] - [#/volume] in [facility] Monocytes 0.4 K/UL 0.1-1.7 [facility] - [#/volume] in [facility] Eosinophils 0.0 K/UL 0.0-1.0 [facility] - [#/volume] in [facility] Basophils 0.0 K/UL 0.0-0.4 [facility] - [#/volume] in [facility] Immature 0.1 K/UL 0.0-0.17 [facility] - granulocytes Good [#/volume] in [facility] by [facility] Automated count Differential [facility] - cell count Good method [facility] ID Date Data Source [id number] 05/02/2019 05:23:26 AM EST [facility] Name Value Range Interpretation Description Data Sup porting Code Source(s) Document(s ) Sodium 146 136-145 Above high [facility] - [Moles/volume] in mmol/L normal [facility] or [facility] Potassium 4.0 3.5-5.1 [facility] - [Moles/volume] in mmol/L [facility] Chloride 109 98-107 Above high [facility] - [Moles/volume] in mmol/L normal [facility] or [facility] Carbon dioxide, 35 21-32 Above high [facility] - total mmol/L normal [facility] [Moles/volume] in Taoist Serum or [facility] Anion gap in Serum 6 10-20 Below low normal [facility] - or Plasma mmol/L [facility] Glucose 80 74-106 [facility] - [Mass/volume] in mg/dL [facility] or [facility] Urea nitrogen 43 7-18 Above high [facility] - [Mass/volume] in mg/dL normal [facility] Creatinine 1.79 0.70-1. Above high [facility] - [Mass/volume] in mg/dL 30 normal [facility] or [facility] Glomerular 49 >60 Below low normal [facility] - filtration ml/min/ Good rate/1.73 sq M 1.73m2 Taoist predicted among Hospital blacks [Volume Rate/Area] in Serum or Plasma by Creatinine-based formula (MDRD) Glomerular 40 >60 Below low normal [facility] - filtration ml/min/ Good rate/1.73 sq M 1.73m2 Taoist predicted among Hospital non-blacks [Volume Rate/Area] in Serum or Plasma by Creatinine-based formula (MDRD) Calcium 9.8 8.5-10. [facility] - [Mass/volume] in mg/dL 1 Good Serum or Plasma [facility] Bilirubin.total 0.7 0.2-1.0 [facility] - [Mass/volume] in mg/dL Good Serum or Plasma [facility] Alanine 11 U/L 13-61 Below low normal [facility] - aminotransferase Good [Enzymatic Taoist activity/volume] in Hospital Serum or Plasma Aspartate 14 U/L 15-37 Below low normal [facility] - aminotransferase Good [Enzymatic Taoist activity/volume] in Hospital Serum or Plasma by With P-5'-P Alkaline 62 U/L 45-117 [facility] - phosphatase Good [Enzymatic Taoist activity/volume] in Hospital Serum or Plasma Protein 6.0 6.4-8.2 Below low normal [facility] - [Mass/volume] in g/dL Good Serum or Plasma [facility] Albumin 2.0 3.5-4.7 Below low normal [facility] - [Mass/volume] in g/dL Good Serum or Plasma by Taoist Bromocresol [facility] (BCP) dye binding method Globulin 4.0 1.7-4.7 [facility] - [Mass/volume] in g/dL Good Serum by [facility] Albumin/Globulin 0.5 0.7-2.8 Below low normal [facility] - [Mass Ratio] in Good Serum or Plasma [facility] ID Date Data Source [id number] 05/02/2019 05:23:26 AM EST [facility] Name Value Range Interpretation Description Data Sup porting Code Source(s) Document(s ) Phosphate 3.3 mg/dL 2.5-4.9 [facility] - Good [Mass/volume] Taoist in Serum or Hospital Plasma ID Date Data Source [id number] 05/02/2019 05:23:26 AM EST [facility] Name Value Range Interpretation Description Data Sup porting Code Source(s) Document(s ) Magnesium 2.2 mg/dL 1.6-2.6 [facility] [Mass/volume] Taoist in Serum or Hospital Plasma ID Date Data Source [id number] 05/02/2019 03:22:34 AM EST [facility] Problem: Falls - Risk ofGoal: *Absence o f FallsDescriptionDocument Samra Fall Risk and appropriate interventions in the jhon wsheet.Outcome: Progressing Towards GoalNote: Fall Risk Interventions:Mentation Interv entions: Adequate sleep, hydration, pain control, Bed/chair exitalarm, Door open when patient unattended, Evaluate medications/considerconsulting pharmacy, Room close to nurse's station, Toileting roundsMedication Interventions: Evaluate medications/consider consulting pharmacyElimination Interventions: Bed/c hair exit alarm, Call light in reach, Toiletingschedule/hourly roundsProblem: Pressure Injury - Risk ofGoal: *Prevention of pressure injuryDescriptionDocument Brade n Scale and appropriate interventions in the flowsheet.Outcome: Progressing Towards G oalNote: Pressure Injury Interventions:Sensory Interventions: Ass ess changes in LOC, Assess need for specialty bed,Check visual cues for pain, Float he els, Keep linens dry and wrinkle-free,Minimize linen layers, Nir tor skin under medical devices, Pad between skin toskin, Pressure redistribution bed /mattress (bed type), Turn and repositionapprox. every two hours (ariel ws and wedges if needed)Moisture Interventions: Absorbent underpads, Appl y protective barrier, creamsand emollients, Assess need for specialty bed, Check for incontinence Q2 hoursand as needed, Internal/External fecal devices, Interna l/External urinarydevices, Minimize layersActivity Interventions: Pressure r edistribution bed/mattress(bed type), Assessneed for specialty bedMobility Int erventions: Assess need for specialty bed, Float heels, HOB 30degrees or less, Pres sure redistribution bed/mattress (bed type), Turn andreposition approx. every two tammy rs(pillow and wedges)Nutrition Interventions: Discuss nutritional consult with provide rFriction and Shear Interventions: Apply protective barrier, creams andemollients , Foam dressings/transparent film/skin sealants, HOB 30 degrees orless, Lift sh eet, Minimize layers Name Value Range Interpretation Code Description Data [facility] rce(s) Supporting Document(s ) ID Date Data Source [id number] 05/01/2019 07:48:49 PM [facility] Bedside and Verbal shift change report carol Calvillo (oncoming nurse) by Anurag (offgoing nurse). Report included the fo llowing information SBAR, MAR,Recent Results and Cardiac Rhythm NSR.. Name Value Range Interpretation Code Description Data [facility] Supporting Document(s ) ID Date Data Source [id number] 05/01/2019 07:15:07 PM [facility] Reviewed Ventilator Settings with onc edgardoing RT Grace Santana, Settings, Weaning , Transports. Ventilator wiped d own with bleachwipes.Hoa Sanders, LABORATORY GENETICIST, RT, NM, ARRT Name Value Range Interpretation Code Description Data [facility] Supporting Document(s ) ID Date Data Source [id number] 05/01/2019 06:30:49 PM [facility] Received pt from OR post trache and jeju nostomy placement,responsive to pain,#8shiley to vent,settings RD=774 RR=15 PEEP5 40%, abdomen soft ,binder present,redtube/JT clamped,GT to gravity bag per Dr Major rodriguez,kept NPO till tomm.ChestXray ordered. Name Value Range Interpretation Code Description Data [facility] Supporting Document(s ) ID Date Data Source [id number] 05/01/2019 05:01:12 PM [facility] Critical Care Progress N [facility]Krystian Monae MD., F.C.C.P.Stella Hamilton MD., F.C.C.P. [address] [place] [address] [place] [address] Name: Evelio JohnsoninDOB: 1950MRN: [id number]: 05/01/2019Subjective:Mr. Carlin is a 68 y.o. year old male who is being see n for AcuteHypercapnic And Hypoxic Respiratory failure . 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) Pneumonia Psychiatric disorder schizophrenia Pulmonary emboli (HCC) S chizophrenia (HCC)Allergy:No Known AllergiesVital Signs:Patient Vitals for the past 24 hrs: BP Temp Pulse Resp SpO2 Ytcwas28/17/20 1600 (!) 171/91 97.2 F ( 36.2 C) 80 15 97 % -05/01/19 1545 (!) 193/138 97 F (36.1 C) 94 23 - - 0 1506 - - 90 15 92 % -05/01/19 1505 (!) 156/97 98.6 F (37 C) 86 10 100 % -04/15 11/01 1200 151/87 98.4 F (36.9 C) 78 23 99 % -05/01/19 1100 137/85 - 76 19 99 % -04/15 11/01 1000 (!) 150/95 - 75 24 95 % -05/01/19 0900 145/80 - 79 23 93 % -05/01/19 0800 151/86 97.8 F (36.6 C) 74 25 93 % -05/01/19 0600 167/78 - 77 24 97 % -05/01/19 0513 136/82 - 80 19 - -05/01/19 0500 (!) 179/145 - 85 22 - 59.6 kg (131 lb 6.3 oz)05/01/19 0400 135/79 97.2 F (36.2 C) 75 24 100 % -05/01/19 0306 134/85 - 93 24 - - 0 0300 (!) 150/136 - 96 28 - -05/01/19 0200 (!) 144/107 - 84 27 96 % -05/01/19 0000 154/84 97.9 F (36.6 C) 92 26 95 % -04/30/19 2300 (!) 154/91 - 91 24 97 % -04/30/19 2 200 (!) 147/104 - 96 23 98 % -04/30/19 2111 - - - - 93 % -04/30/19 2000 (!) 134/94 97. 2 F (36.2 C) 94 23 94 % -04/30/19 1900 149/90 - 92 21 91 % -04/30/19 1800 103/5 9 - 93 21 93 % -04/30/19 1700 145/82 - 85 27 94 % -Pulse OX:SpO2 Readings from Last 6 Encounters:05/01/19 97%04/16/19 100%04/06/19 99%03/17/19 92%02/19/19 96%02/18/19 92%@ LASTSAO2(6)@Intake/Output:Last shift: 05/01 07 - 05/01 1900In: 550 [I.V.:550 ]Out: 825 [Urine:800; Drains:25]Last 3 shifts: 04/29 1900 - 05/01 0700In: 820 [ I.V.:150]Out: 3175 [Urine:2900; Drains:275]Intake/Output Summary (Last 2 4 hours) at 05/01/2019 1648Last data filed at 05/01/2019 1503Gross per 24 hourIntake 12 20 mlOutput 2125 mlNet -905 mlHemodynamics:.@MAP.@CVPVentilator Sett ings:Ventilator Mode: PRVCRespiratory RateInsp Time (sec): 1 secI:E Ratio: 1:2 .3Ventilator VolumesVt Set (ml): 400 mlVt Exhaled (Machine Breath) (ml): 400 mlVt Spont (ml): 399 mlVe Observed (l/min): 6 l/minVentilator PressuresPressure Suppor t (cm H2O): 10 cm H2OPIP Observed (cm H2O): 18 cm H2OMAP (cm H2O): 8PEEP/VENT (cm H2 O): 5 cm M90Kpqe PEEP Observed (cm H2O): 2.3 cm K7BMsch Rate Tidal Volume Pressure Fi O2 PEEPPRVC 400 ml 10 cm H2O 40 % 5 cm M73Txdw airway pressure: 18 cm M8CAmwhac ventilation: 6 l/minARDS network Guidelines: Lung protective strategy and Pl pressure goals 18CM less than or equal to 30Physical Exam:MORE AWAKE , ALERT ON VENTILATOR VIA TRACHEOSTOMY . General: Alert, cooperative, MINIMAL distress, appears stated age. Head: Normocephalic, without obvious a bnormality, atraumatic. Eyes: Conjunctivae/corneas clear. PERRL, EOMs intact. Nose: Nares normal. No drainage or sinus tenderness Thr oat: Lips, mucosa, and tongue normal Neck: NEW TAR CHEOSTOMY Supple, s ymmetrical, trachea midline, noadenopathy, thyroid: no enlargement/tendern ess/nodules, no carotid bruit and no JVD. Lungs: BS STILL DECREASED R L L WITH DULLNESS , RALES R L L >L L L , MILD RHONCHI + to auscultation bilateral ly. Chest Wall: No tenderness or deformity. Heart: Regular r ate and rhythm, S1, S2 normal, no murmur, click,rub or gallop. Abdomen: NEW J - TUBE Soft, non-tender. Bowel sounds normal. No masses, No organomegaly. Ex tremities: Extremities normal, atraumatic, no cyanosis or edema. Pulses: 4+ bilaterally Skin: Skin color, texture, turgor normal. No rashes or lesions. Neurologic: CNII-XII intact. No focal motor or sensory deficit.DATA:C urrent Facility-Administered MedicationsMedication Dose Route Frequen cy HYDROmorphone (PF) (DILAUDID) injection 0.5 mg 0.5 mg IntraVENous Q3H PRN enal aprilat (VASOTEC) 2.5 mg in 0.9% sodium chloride 50 mL IVPB 2.5 mgIntraVENous Q 6H vits A and D-white pet-lanolin (A&D) ointment Topical PRN furosemide (LASI X) injection 20 mg 20 mg IntraVENous BID methylPREDNISolone (PF) (SOLU-MEDROL) in jection 40 mg 40 mg IntraVENous Q12H bacitracin 500 unit/gram packet 1 Packet 1 Packet Topical TID vancomycin 50 mg/mL oral solution (compounded) 125 mg 125 m g Per G Tube Q6H meropenem (MERREM) 500 mg in 0.9% sodium chloride (MBP/ADV) 50 mL MBP 0.5 gIntraVENous Q12H lamoTRIgine (LaMICtal) tablet 100 mg 100 mg Per G T ube QPM LORazepam (ATIVAN) tablet 1 mg 1 mg Per G Tube QHS lamoTRIgine (LaMICtal) t ablet 50 mg 50 mg Per G Tube DAILY sodium chloride (NS) flush 5-40 mL 5-40 mL Int raVENous PRN pantoprazole (PROTONIX) 40 mg in 0.9% sodium chloride 10 mL injection 40 mgIntraVENous DAILY acetaminophen (TYLENOL) tablet 650 mg 650 mg Oral Q6H PRN ondansetron (ZOFRAN) injection 4 mg 4 mg IntraVENous Q6H PRN magnesium hydrox wade (MILK OF MAGNESIA) 400 mg/5 mL oral suspension 30 mL 30mL Oral DAILY PRN a lbuterol-ipratropium (DUO-NEB) 2.5 MG-0.5 MG/3 ML 3 mL Nebulization Q6HWA RT joan tylcysteine (MUCOMYST) 100 mg/mL (10 %) nebulizer solution 400 mg 4 mLInhalatio n TID RT miconazole (MICOTIN) 2 % cream Topical BID budesonide (PULMICORT) 500 mcg/2 ml nebulizer suspension 500 mcg NebulizationBID RT cinacalcet (SENSIPAR ) tablet 60 mg 60 mg Oral DAILY heparin (porcine) injection 5,000 Units 5,000 U nits SubCUTAneous [id number]: [x]Sinus []A-flutter []Paced []A-fib []Multiple P VC'sLabs:Recent Results (from the past 24 hour(s))BLOOD GAS, ARTERIAL Collection T jose alejandro: 05/01/19 6:01 AMResult Value Ref Range pH 7.50 (H) 7.35 - 7.45 PCO2 48 32 - 48 mmHg PO2 71 (L) 83 - 108 mmHg CO2, TOTAL 39 (H) 19 - 24 mmol/L BICARBONATE 37 (H) 21 - 28 mmol/L O2 SAT 99 (H) 94 - 98 % BASE EXCESS 12.4 (H) 0 - 3 mmol/L SITE RIGHT RADIAL MIRANDA'S TEST POSITIVE DEVICE NASAL O2 O2 FLOW 3 L/min Performed by KAYLENE IUM Collection Time: 05/01/19 8:07 AMResult Value Ref Range Magnesium 2.7 (H) 1.6 - 2.6 mg/dLCBC WITH AUTOMATED DIFF Collection Time: 05/01/19 8:07 AMResult Value Ref Range WBC 11.9 (H) 4.8 - 10.6 K/uL RBC 3.39 (L) 4.70 - 6.00 M/uL HGB 10.2 (L) 14.0 - 18.0 g/dL HCT 32.9 (L) 42.0 - 52.0 % MCV 97.1 (H) 81.0 - 94.0 FL MCH 30.1 27.0 - 35.0 PG MCHC 31.0 30.7 - 37.3 g/dL RDW 17.5 (H) 11.5 - 14.0 % PLATELET 577 (H) 130 - 400 K/uL MPV 9.3 9.2 - 11.8 FL NRBC 0.0 0 PER 100 WBC ABSOLUTE NRBC 0.00 0.0 - 0.0 1 K/uL NEUTROPHILS 82 (H) 48.0 - 72.0 % LYMPHOCYTES 14 (L) 18.0 - 40.0 % MONOCYT ES 4 2.0 - 12.0 % EOSINOPHILS 0 0.0 - 7.0 % BASOPHILS 0 0.0 - 3.0 % IMMATURE GRANULO CYTES 1 (H) 0 - 0.5 % ABS. NEUTROPHILS 9.7 (H) 2.3 - 7.6 K/UL ABS. LYMPHOCYTES 1.6 0.9 - 4.2 K/UL ABS. MONOCYTES 0.5 0.1 - 1.7 K/UL ABS. EOSINOPHILS 0.0 0.0 - 1.0 K/UL ABS. BASOPHILS 0.0 0.0 - 0.4 K/UL ABS. IMM. GRANS. 0.1 0.0 - 0.17 K/UL DF AUTOMATEDM ETABOLIC PANEL, COMPREHENSIVE Collection Time: 05/01/19 8:07 AMResult Value Ref Range Sodium 145 136 - 145 mmol/L Potassium 3.6 3.5 - 5.1 mmol/L Chloride 107 98 - 1 07 mmol/L CO2 35 (H) 21 - 32 mmol/L Anion gap 7 (L) 10 - 20 mmol/L Glucose 89 74 - 106 mg/dL BUN 44 (H) 7 - 18 mg/dL Creatinine 1.93 (H) 0.70 - 1.30 mg/dL GFR est AA 45 (L) >60 ml/min/1.73m2 GFR est non-AA 37 (L) >60 ml/min/1.73m2 Calcium 10.0 8.5 - 10. 1 mg/dL Bilirubin, total 0.4 0.2 - 1.0 mg/dL ALT (SGPT) 12 (L) 13 - 61 U/L AST (SGOT) 15 15 - 37 U/L Alk. phosphatase 72 45 - 117 U/L Protein, total 6.7 6.4 - 8.2 g/dL Al bumin 2.1 (L) 3.5 - 4.7 g/dL Globulin 4.6 1.7 - 4.7 g/dL A-G Ratio 0.5 (L) 0.7 - 2.8PR OTHROMBIN TIME + INR Collection Time: 05/01/19 8:07 AMResult Value Ref Range Prothrombin time 10.9 9.4 - 11.1 sec INR 1.1 0.8 - 1.2PTT Collection Time: 05/01/19 8:07 AMResult Value Ref Range aPTT 23.6 21.0 - 28.0 SECABG:Recent Labs 04/29/200511PH 7.50* 7.45PCO2 48 44PO2 71* 70*HCO3 37* 31*FIO2 -- 40.0Recent Gluc ose Results:Lab ResultsComponent Value Date/Time GLU 89 05/01/2019 08:07 AMCULT URES:All Micro Results Procedure Component Value Units Date/Time CULTURE, BLOOD [[id number]] Collected: 04/25/19 1210 Order Status: Completed Specimen: Blood Upda mikel: 04/30/19 1352 Special Requests: NO SPECIAL REQUESTS Culture result: NO HAIDER WTH 5 DAYS CULTURE, BLOOD [[id number]] Collected: 04/25/19 1205 Order Status: Completed Specimen: Blood Updated: 04/30/19 1352 Special Requests: NO SPEC IAL REQUESTS Culture result: NO GROWTH 5 DAYS CULTURE, RESPIRATORY/SPUTUM/BRONCH W GRAM STAIN [[id number]] (Abnormal)(Susceptibility) Collected: 0 04/26/19 1700 Order Status: Completed Specimen: Sputum from Tracheal Aspirate Updated:04/29/19 1051 Special Requests: NO SPECIAL REQUESTS GRAM STAIN 10-25 WBC/l pf <10 EPI/lpf FEW GRAM POSITIVE RODS Culture result: MODERATE PSEUDOMONAS AE RUGINOSA C. DIFFICILE (DNA) [[id number]] Collected: 04/27/19 0915 Order Status: Completed Specimen: Stool Updated: 04/27/19 1246 C. difficile (DNA) NEGATI VE Comment: This specimen is negative for toxigenic C difficile by DNAamplificatio n. Repeat testing is not recommended for confirmation, samplesreceived within 7 d ays of this negative result will be rejected. C. DIFFICILE (DNA) [[id number]] (Abnorma l) Collected: 04/25/19 1715 Order Status: Completed Specimen: Stool Updated: 04/03 1551 C. difficile (DNA) TEST RESULT IS INCONCLUSIVE. PLEASE SUBMIT A NEW SPE CIMEN FOR ANALYSIS. CULTURE, URINE [[id number]] Collected: 04/25/19 1147 Or bassem Status: Completed Specimen: Urine from Clean catch Updated: Spec ial Requests: NO SPECIAL REQUESTS Culture result: NO GROWTH 1 DAY C. DIFFICILE (DN A) [[id number]] Order Status: Sent Specimen: Stool CULTURE, BLOOD [[id number]] Collect ed: 04/20/19 1440 Order Status: Completed Specimen: Blood Updated: 04/26/19 0818 Special Requests: NO SPECIAL REQUESTS Culture result: NO GROWTH 6 DAYS CULTURE , BLOOD [[id number]] Collected: 04/20/19 1447 Order Status: Completed Specimen: Bloo d Updated: 04/26/19 0818 Special Requests: NO SPECIAL REQUESTS Culture result: NO GROWTH 6 DAYS CULTURE, BLOOD [[id number]] (Abnormal) Collected: 04/19/19 1005 Ord er Status: Completed Specimen: Blood Updated: 04/22/19 0731 Special Request s: NO SPECIAL REQUESTS GRAM STAIN GRAM POSITIVE COCCI IN CLUSTERS ANAEROBIC BOT TLE CALLED TO AND READ BACK BY ROB LEDEZMARN, ED, 0953 ON 04/20/19 TORMAIN IRAGLTHUY Culture result: STAPHYLOCOCCUS EPIDERMIDIS : Refer to previous culture( s) for susceptibilityresults CULTURE, BLOOD [[id number]] (Abnormal) (Susceptibility ) Collected: Order Status: Completed Specimen: Blood Updated: 12/02 0729 Special Requests: NO SPECIAL REQUESTS GRAM STAIN GRAM POSITIVE COCC I IN CLUSTERS ANAEROBIC BOTTLE CALLED TO AND READ BACK BY ROB LEDZEMA RN, ED, AT 0953 ON 04/20/19 TORISMIRAGLIA Culture result: STAPHYLOCOCCUS EPIDERMIDISXR Re sults (most recent):Results from Hospital Encounter encounter on 04/19/19XR CHEST SNGL V Narrative AP portable film of the chest clinical indication pneumoniaStudy is compared to previous examination of April 30, 2019. Again noted is anexten sive left mid lobe and lower lung infiltrate as well as a left pleuraleffusion. Also noted is a right perihilar infiltrate. Impression IMPRESSION:Bilateral infiltra tasha and left pleural effusion ,Little change from prior studyCT Results (most recent) :Results from Hospital Encounter encounter on 04/19/19CT CHEST ABD PELV WO CONT Narrat britni Referring Physician: MILI HILLSPatient Name: EVELIO MALAVE REPORT FROM IMAGING [facility]: CT chest without contrast and CT abdomen pelvis w ithoutcontrastDATE OF EXAM: 2019-04-20 20:52:12IMAGES: 681HISTORY: reduced del th sounds right lung, LLQ tendernessComparison: 03/14/19 and 9FINDINGS: Axial images of the chest, abdomen and pelvis areobtained without iv contra st.Chest: Mediastinal assessment is limited without contrast. Imagequality limited b y artifacts. Patchy lung opacities right greaterthan left similar to prior. Small pleural effusions. Vascularincluding coronary calcifications. Mediastinum kanika ears shifted tothe right. Left hemidiaphragm is elevated.Abdomen and pelvis: Nonspeci fic bowel pattern, with post surgicalchanges on the left. No definite free air. Organ assessmentlimited without iv contrast. No significant free fluid or freeair.No bow el obstruction or abscess seen. Catheter and air in thebladder which is not well asse ssed. Left hip hardware partiallyseen with old fracture deformity. G-J tube is pres ent. Ventralhernia right of midline at abdominal wall with multiple smallbowel loops without obstructive pattern. Mild right muscleswelling with possible hematoma an d calcification at right groinimage 117/120. Degenerative bony changes. Multiple like ly chroniccompression deformities at thoracic and lumbar spine. BilateralL5-S1 spondyl olysis and anterolisthesis. Impression IMPRESSION: Right greater than left lung infiltrates and effusions.No bowel obstruction. 2 cm hyperdensity at a macrina l loop in leftpelvis image 90/120, possibly ingested material, or a tubefragment or post surgical change.Ventral abdominal hernia seen.See above.One or more of the follow ing dose reduction techniques were used:automated exposure control, adjustm ent of the mA and/or kVaccording to patient size, use of iterative reconstructivetec hnique.THIS DOCUMENT HAS BEEN ELECTRONICALLY SIGNEDFrsofia Edge MD04/20/2019 22:43 GINA Jenkins. Please call [facility] Wireless Consultant [phone] ([phone]) withquestions.T his report was electronically signed by:Marcie Edge MD 04/20/2019 10:44 PMImages:[email or web address] TEXTThis SmartLink requires a parameter for processing. Parameters are variableswhich can be added to the original SmartLink name. This allows you to reque stspecific information by giving the SmartLink precise direction.The [facility] SmartLink accepts (as a parameter) an external procedure IDor an anatomical re gion. Typically, this external ID would be the CPT code.You can also request the nu mber of procedures to be displayed by this SmartLink.To indicate the number, type t he procedure ID or anatomical regions followed bya colon and then the number o f procedures. To display all occurences for thatparticular procedure ID/anatomical r egions, type an asterisk in place of thenumber. To obtain only the last occur ence, type the procedure ID/anatomicalregions without the colon, number, or asterisk.T his SmartLink can display other procedures in the same procedure category if aparamete r is set.The SmartLink will display the last x cases of the procedure or anatomicalre gions you entered.Example: .BSHSILASTIMGCAT[[id number] example wo uld display results for the last three orders with an externalprocedure ID of [id number].T he patient is: [] acutely ill Risk of deterioration: [] moderate [] critically ill [] highActive Problems: Pneumonia (11/08/2018) Acute hypoxemic respiratory failure (HCC) (03/25/2019) COPD with acute exacerbation (HCC) (04/19/2019) Acute on chronic respiratory failure with hypoxia and hypercapnia (HCC)(04/19/2019) Scrotal torsten h (04/21/2019)IMPRESSION: ACUTE HYPERCAPNIC AND HYPOXIC RESPIRATORY FAILURE DUE T O SEVERE COPD /PNEUMONIA R ML , R L L 1. ATELECTASIS R L L , L L L RESOLVED .2. R/ OM ATELECTASIS RT LUNG - STAT CHEST XRAY3. PLEURAL EFFUSION RT AN LT - SMALL4. SEVERE COPD 5. SEVERE METABOLIC ENCEPHALOPATHY IMPROVED POST TRACHEOST ROSINA 05/01/20196. SEVERE MENTAL RETARDATION7. SEIZURE VS TREMORS ON LAMICTAL SEEN BY DR SCHNEIDER 8. PNEUMONIA - G N R , I D PENDING9. SEPSIS L A = 2.5 RESOLVING 10. BACTEREMIA G + COCCI - STAPH EPIDERMITIS 11. SEVERE MAL NUTR ITION ,S/P J TUBE INSERTION 05/01/201912. ALB = 1.4 SEVERE HYPOA LBUMINEMIA Plan: 1 WILL LEAVE HIM ON VENTILATOR OVER NIGH , TRY TO WEAN OF F VENTILATOR I N AM1. DUO NEB Q 4 H2. MUCOMYST 10 % VIA MINI NEB Q 8 H3. LAS IX 20 MG I V P B I D PER RENAL - DR FRANKEL 4. DISCUSSED WITH RN ON BED SI DE 5 CONT MEROPENEM AND VANCOMYCIN [address] MOTLEY7 PROSTAT FOR SEVERE HYPOALBUMINEMI 8 , I V SOLUMEDROL FOR COPD 9 MUC OMYST TO LOOSEN TRACHEOBRONCHIAL SECTERTIONS CHEST P T TO MOBILIZE SEC RETIONS 8 CONT CHEST P T [address] MILLS IN CCU My assess ment, plan of care, findings, medications, side effects etc werediscussed with:[x]n ursing []PT/OT[x]respiratory therapy [x][]family []Critical Care Provided 45minutes non procedure based.Krystian Monae MD F.C.C.P. Name Value Range Interpretation Code Description Data [facility] rce(s) Supporting Document(s ) ID Date Data Source [id number] 05/01/2019 04:51:02 PM [facility] AP portable film of the chest clinical i ndication insertion of tracheostomy tubeStudy is compared to previous exam performed earlier in the day. Studydemonstrates a tracheostomy tube in situ. Again noted a re bilateral pleuraleffusions. Infiltrate is present at the left base. There is no ev idence ofpneumothorax.IMPRESSION:1. Tracheostomy tube in situ.2. No evidence of pneumothorax.3. Other findings as above Signing date/time: 05/01/2019 4:51 PMSig nataly by: ROSEANNE SÁNCHEZ Name Value Range Interpretation Code Description Data [facility] ) ID Date Data Source [id number] 05/01/2019 03:45:37 PM [facility] sent referral for patient to [facility] at [phone]; /55And also sent to [facility] at [phone]; . Name Value Range Interpretation Code Description Data [facility] Supporting Document(s ) ID Date Data Source [id number] 05/01/2019 03:08:27 PM [facility] At 1500, patient brought back to the [facility] t per bed, stable as per CHRISTOPHER Menendez, endorsed to NANCY Greer using SBAR, late st V/S: 154/86mmhg, 98 O2sat, 86HR and 37temp. Name Value Range Interpretation Code Description Data [facility] rce(s) Supporting Document(s ) ID Date Data Source [id number] 05/01/2019 02:59:46 PM [facility] OPERATIVE NOTEPatient: Evelio Carlin Sex: maleDate of : 1950 Age: 68 y.o.Date of Procedure : 05/01/2019Preoperative Diagnosis:Failure to ThriveRespiratory failurePostoperative D iagnosis:Failure to ThriveRespiratory failureProcedure:TracheostomyFeeding jej unostomy tube placementSurgeon(s) and Role:Surgeon(s) and Role: * Kareen Mills MD - Primary Circ-1: Emmy Gill, RNCirc-Relief: Faith Lui , RNScrub Tech-1: Priscila AnneAnesthesia: GeneralEstimated Blood Los s: 5 ccSpecimens: NoneFindings:Old jejunostomy tube and endo clip identifie d in jejunum, New jejunostomy tubewas placed distal to the old tube.Large reducible i ncisional hernia in epigastric region which was not repaired.Complications: NoneImp lants:Implant Name Type Inv. Item Serial No. Evp And Chief Operating Officer Lot No. LRB No. Used [employer] TUBE TRACH CUFFED #08 CANNULA - [id number] TUBE TRACH CUFFED #08 CANNULACOVIDIEN RE SPIRATORY & MONITOR [id number] N/A 1 ImplantedIndications:This is a 68 y.o. y ear-old male who has been in ICU for respiratory failure andrecurrent aspirat ion with Gastric tube feeding. Surgery consult was obtained forplacement of tra cheostomy and feeding jejunostomy.Informed consent was obtained for tracheostomy an d feeding jejunostomy fromhealth care proxy after explaining all possible risk, bene fits and alternativesof surgical procedure.Procedure :Patient was brought to operation room and placed supine on bed. Compressionstocking were applied to both calves for DVT prophylaxis. All pressor pointswere protected with appropriate jeff lster and soft foam. Neck was extended withshoulder roll.Procedure 1- Tracheost omyWith the patient in the supine position under adequate general endotrachealanest hesia, the anterior neck was prepped and draped as a sterile field.Surgical time out was carried out at that point as per WHO recommendations.Perioperative antibiotic s were given as per protocol.Transverse incision was made over the anterior surf joan of neck about 2 cm fromthe sternal notch. Sharp dissection was continued with elec trocautery insubcutaneous tissue. Platysma was divided and strap muscles were separ ated frommidline. With help of self retaining retractor, strap muscles were retracted toexpose isthnus of thyroid gland. Dissection was continued below the isthmus toexpose anterior trachea. Anterior surface of trachea was cleared of fibroareolartissu e. Space between second and third tracheal ring was identified. No bleedingwas iden tified.After communicating with contract post office clerk, transverse incision w as made ontrachea between second and third tracheal ring. Incision was dilated with dilator. Endo tracheal tube was withdrawn under vision to keep its tip justabove t he hole in trachea.At that point, Size 8 Cuffed tracheostomy tube was introduced into trachea underdirect vision without any difficulty. Position of tracheostomy was confirmedwith EtCO2 monitoring.Tracheostomy was secured with skin sutures at all fou r corners and was securedwith trach tie.Procedure 2 Jejunostomy tube placeme ntThe Joint Commission mandated "time-out" was performed, confirming the correctpat ient, the correct procedure, patient's allergies, and the appropriateperioperat britni antibiotic and dose. The patient was now prepped and draped in thestandard steril e fashion.Midline incision was made at supra-umbilical region. Dissection was c ontinueddown to linea alba. Vertical incision was placed on linea and peritoneal cavit ywas entered in under direct vision. Portion of Stomach was visualized andappeared pa le but intact.Small bowel loop was identified and small bowel was run from Ligament of Treitz.Decision was made to place a jejunostomy in loop of small bowel which was 30 cmfrom Ligament of Treitz. 2 Purse-string sutures were placed with 00 0 silk inseromuscular layer at anti-mesenteric border. Enterotomy was m stephanie at the centerof Purse string suture. Red Rubber catheter 18 Fr was used and tip o f thecatheter was inserted into Enterotomy. Purse string sutures were tied around th ecatheter. Sub-serosal tunnel was created for about 3 cm with 000 silk sutures.In left upper abdomen, incision was made and tube was extracted. Loop of jejunumwas secure d to peritoneal surface with Three silk sutures. Normal saline wasflushed easily into the tube without any resistance and no leak was noted fromthe enterostomy site. The instrument and lap counts were confirmed to be correct. The midline incisionwas c losed with running 0 PDS sutures. All skin incisions were approximatedwith 4-0 mono cryl and sterile dressings were placed.The patient tolerated the procedure well and was transferred to the ICU instable condition.Counts: Instrument, sponge, an d needle counts were correct prior to closure andat the conclusion of the case.Signed By: Kareen Mills MD May 01, 2019 Name Value Range Interpretation Code Description Data [facility] rce(s) Supporting Document(s ) ID Date Data Source [id number] 05/01/2019 02:39:49 PM [facility] Pt is in OR for new Trach and new J tube . From [place] and cannot return.LATHE SANDER working on placing in a vent facility. N ot a weekend discharge. NATALIIA elias. Name Value Range Interpretation Code Description Data [facility] Supporting Document(s ) ID Date Data Source [id number] 05/01/2019 12:49:42 PM [facility] Brought pt down to the OR holding area,carol campbell report to the OR Nurse,familypresent waiting to speak to Dr Betancourt. Name Value Range Interpretation Code Description Data [facility] Supporting Document(s ) ID Date Data Source [id number] 05/01/2019 12:08:02 PM [facility] Patient seen at bedside along with his n claudette and family member.He appears comfortable. On nasal cannula.No distres s.He is on schedule for Ex-lap, Jejunostomy placement and tracheostomyDiscussed Risk , benefits and alternatives with Patients HCP - Don Respler.He agreed with procedure a nd signed consent. Name Value Range Interpretation Code Description Data [facility] Supporting Document(s ) ID Date Data Source [id number] 05/01/2019 11:58:48 AM [facility] NUTRITIONINTERDISCIPLINARY ROUNDS NOTEPa tient discussed during interdisciplinary rounds.Extubated. Plan is for placement of jejunostomy tube and tracheostomy today.Tolerating Osmolite 1.5 @35mL/hr y , 04/30.Labs and medications reviewed. Receiving lasix, sensipar. No longer r eceivingpropofol.Skin: Wound to scrotum (per flowsheet); wound care consult pending. edema.Today's weight 59.6kg, up 1.4kg from initial bedscale weight with edema; improved from last assessment.Dx remains same: increased protein and energy needs .Suggest goal of Osmolite 1.5@45mL/hr with 30mL prostat tid (1920kcal, 113gmprot, 2 20gm CHO, 53gm fat, 823mL free H2O). Add 100mL free H2O Q 3hr iffeasible given ed ivelisse and need for lasix.Monitor GI tolerance to EN.Monitor volume status.Adjust EN as appropriate.Jo Espinoza RD Name Value Range Interpretation Code Description Data [facility] rce(s) Supporting Document(s ) ID Date Data Source [id number] 05/01/2019 11:58:42 AM [facility] Problem: Nutrition DeficitGoal: *Optimiz e nutritional statusDescriptionPt meeting 80% nutrient needs within 3-7 daysOutcome: P rogressing Towards GoalSuggest goal of Osmolite 1.5@45mL/hr with 30mL prostat t id. Add 100mL free H2OQ 3hr if feasible given edema and need for lasix. Name Value Range Interpretation Code Description Data [facility] Supporting Document(s ) ID Date Data Source [id number] 05/01/2019 11:24:55 AM [facility] Pt is scheduled for trache and JT revisi on this afternoon,kept NPO,informedconsent from pts brother for anesthisia done. Name Value Range Interpretation Code Description Data [facility] Supporting Document(s ) ID Date Data Source [id number] 05/01/2019 09:37:26 AM [facility] Progress NoteEmanuel [id number] y.o.Adm it Date: 04/19/2019Active Problems: Pneumonia (11/08/2018) Acute hypoxemic respiratory failure (HCC) (03/25/2019) COPD with acute exacerbation (HCC) (04/19/2019) Acute on chronic respiratory failure with hypoxia and hypercapnia (HCC)(04/19/2019) Scrotal torsten h (04/21/2019)Subjective:Patient was extubated yesterday , agitated on restraints.PEG i n place , feeding in progress at 25ml/h, minimal residual, good exit site.Rectal tube in place ,no BM since last nightC diff negative.Pertinent items are noted in th e History of Present Illness.Objective:Visit VitalsBP 145/80 (BP 1 Location: Right ar m)Pulse 79Temp 97.8 F (36.6 C)Resp 23Ht 5' 2" (1.575 m)Wt 59.6 kg (131 lb 6.3 oz)Sp O2 93%BMI 24.03 kg/m Intake and Output:Date 04/30/19 0700 - 05/01/19 0659 05/01/19 0 700 - 05/02/19 0659Shift 4432-2655 6640-9345 24 Hour Total 5323-9945 9784-0795 24 Tammy r TotalINTAKEI.V.(mL/kg/hr) 50(0.1) 50(0.1) 100(0.1) Volume (meropenem (MERREM) 500 mg in 0.9% sodium chloride (MBP/ADV) 50 mL MBP)50 50 100NG/GT 450 220 670 Water Fl ush Volume (mL) (PEG/Gastrostomy Tube) 150 150 Medication Volume (PEG/Gastrostomy Tube) 100 100 Intake (ml) (PEG/Gastrostomy Tube) 300 120 420Shift Total(mL/kg) 500( 8.2) 270(4.5) 770(12.9)OUTPUTUrine(mL/kg/hr) 1100(1.5) 1000(1.4) 2100(1.5) Urine Out put (mL) (Condom Catheter 04/29/19) 1100 1000 2100Drains 75 75 Output (ml) (Fecal Ma nagement) 75 75Shift Total(mL/kg) 1175(19.2) 1000(16.8) 2175(36.5)NET -015 -381 -7172 Weight (kg) 61.1 59.6 59.6 59.6 59.6 59.6Medications Reviewed:Current Facilit y-Administered MedicationsMedication Dose Route Frequency Provider Last Rate Last Dose vits A and D-white pet-lanolin (A&D) ointment Topical PRN Mili Hills D O furosemide (LASIX) injection 20 mg 20 mg IntraVENous BID Oralia Frankel MD20 mg a t 05/01/19 0638 methylPREDNISolone (PF) (SOLU-MEDROL) injection 40 mg 40 mg Int raVENous [id number] tam MD 40 mg at 04/30/19 2142 bacitracin 500 unit/gram packet 1 Packet 1 Packet Topical TID Krystian Monae MD 1 Packet at 04/30/19 2141 va ncomycin 50 mg/mL oral solution (compounded) 125 mg 125 mg Per G Tube [id number] severino MD 125 mg at 05/01/19 0600 meropenem (MERREM) 500 mg in 0.9% sodium chloride (MBP/ADV) 50 mL MBP 0.5 gIntraVENous Q12H Monica Gomez MD 16.7 mL/hr at 0 2141 500 mg at04/30/19 2141 lamoTRIgine (LaMICtal) tablet 100 mg 100 mg Per G T ube QPM Roberto Burgos MD100 mg at 04/30/19 1707 LORazepam (ATIVAN) tablet 1 mg 1 mg Per G Tube QHS Mili Hills DO 1 mgat 04/30/19 214 lamoTRIgine (LaMICta l) tablet 50 mg 50 mg Per G Tube DAILY Roberto Burgos MD50 mg at 04/30/19 0816 sodium chloride (NS) flush 5-40 mL 5-40 mL IntraVENous PRN Krystian Monae MD panto prazole (PROTONIX) 40 mg in 0.9% sodium chloride 10 mL injection 40 mgIntraVENo us DAILY Krystian Monae MD 40 mg at 04/30/19 0815 acetaminophen (TYLENOL) t ablet 650 mg 650 mg Oral Q6H PRN Krystian Monae MD650 mg at 04/26/19 0453 ondans etron (ZOFRAN) injection 4 mg 4 mg IntraVENous Q6H PRN Krystian Monae MD ma gnesium hydroxide (MILK OF MAGNESIA) 400 mg/5 mL oral suspension 30 mL 30mL Oral KYLEIGH Y PRN Krystian Monae MD albuterol-ipratropium (DUO-NEB) 2.5 MG-0 .5 MG/3 ML 3 mL Nebulization Q6HWA RTMili Hills DO 3 mL at 05/01/19 0818 joan tylcysteine (MUCOMYST) 100 mg/mL (10 %) nebulizer solution 400 mg 4 mLInhalatio n TID RT Mili Hills DO 400 mg at 05/01/19 0818 miconazole (MICOTIN) 2 % cream Topical BID Zuly Lacey NP budesonide (PULMICORT) 500 mcg/2 ml nebu lizer suspension 500 mcg NebulizationBID RT Krystian Monae MD 500 mcg at 05/01/19 0818 cinacalcet (SENSIPAR) tablet 60 mg 60 mg Oral DAILY Mili Hills DO 60mg at 04/30/19 0817 heparin (porcine) injection 5,000 Units 5,000 Units SubCUTAneous Q1 2H Mili Hills DO 5,000 Units at 05/01/19 0556Physical Exam:Physical Exam :General: Alert, cooperative, no distress, appears stated age.Eyes: Conjunctivae/c orneas clear. PERRL, EOMs intact.Neck: Supple, symmetrical, trachea midline, no adenopathy, thyroid: noenlargement/tenderness/nodules, no car otid bruit and no JVD.Lungs: Clear to auscultation bilaterally.Heart: Regular rate and rhythm, S1, S2 normal, no murmur, click, rub or gallop.Abdomen: Soft, no n-tender. Bowel sounds normal. No masses, No organomegaly.Extremities: Extremities no rmal, atraumatic, no cyanosis or edema,Pulses: 2+ and symmetric all extre mities.Skin: Skin color, texture, turgor normal. No rashes or lesionsData Review: Recent Results (from the past 24 hour(s))BLOOD GAS, ARTERIAL Collection T jose alejandro: 05/01/19 6:01 AMResult Value Ref Range pH 7.50 (H) 7.35 - 7.45 PCO2 48 32 - 48 mmHg PO2 71 (L) 83 - 108 mmHg CO2, TOTAL 39 (H) 19 - 24 mmol/L BICARBONATE 37 (H) 21 - 28 mmol/L O2 SAT 99 (H) 94 - 98 % BASE EXCESS 12.4 (H) 0 - 3 mmol/L SITE RIGHT RADIAL MIRANDA'S TEST POSITIVE DEVICE NASAL O2 O2 FLOW 3 L/min Performed by KAYLENE IU Collection Time: 05/01/19 8:07 AMResult Value Ref Range Magnesium 2.7 (H) 1.6 - 2.6 mg/dLCBC WITH AUTOMATED DIFF Collection Time: 05/01/19 8:07 AMResult Value Ref Range WBC 11.9 (H) 4.8 - 10.6 K/uL RBC 3.39 (L) 4.70 - 6.00 M/uL HGB 10.2 (L) 14.0 - 18.0 g/dL HCT 32.9 (L) 42.0 - 52.0 % MCV 97.1 (H) 81.0 - 94.0 FL MCH 30.1 27.0 - 35.0 PG MCHC 31.0 30.7 - 37.3 g/dL RDW 17.5 (H) 11.5 - 14.0 % PLATELET 577 (H) 130 - 400 K/uL MPV 9.3 9.2 - 11.8 FL NRBC 0.0 0 PER 100 WBC ABSOLUTE NRBC 0.00 0.0 - 0.0 1 K/uL NEUTROPHILS 82 (H) 48.0 - 72.0 % LYMPHOCYTES 14 (L) 18.0 - 40.0 % MONOCYT ES 4 2.0 - 12.0 % EOSINOPHILS 0 0.0 - 7.0 % BASOPHILS 0 0.0 - 3.0 % IMMATURE GRANULO CYTES 1 (H) 0 - 0.5 % ABS. NEUTROPHILS 9.7 (H) 2.3 - 7.6 K/UL ABS. LYMPHOCYTES 1.6 0.9 - 4.2 K/UL ABS. MONOCYTES 0.5 0.1 - 1.7 K/UL ABS. EOSINOPHILS 0.0 0.0 - 1.0 K/UL ABS. BASOPHILS 0.0 0.0 - 0.4 K/UL ABS. IMM. GRANS. 0.1 0.0 - 0.17 K/UL DF AUTOMATEDM ETABOLIC PANEL, COMPREHENSIVE Collection Time: 05/01/19 8:07 AMResult Value Ref Range Sodium 145 136 - 145 mmol/L Potassium 3.6 3.5 - 5.1 mmol/L Chloride 107 98 - 1 07 mmol/L CO2 35 (H) 21 - 32 mmol/L Anion gap 7 (L) 10 - 20 mmol/L Glucose 89 74 - 106 mg/dL BUN 44 (H) 7 - 18 mg/dL Creatinine 1.93 (H) 0.70 - 1.30 mg/dL GFR est AA 45 (L) >60 ml/min/1.73m2 GFR est non-AA 37 (L) >60 ml/min/1.73m2 Calcium 10.0 8.5 - 10. 1 mg/dL Bilirubin, total 0.4 0.2 - 1.0 mg/dL ALT (SGPT) 12 (L) 13 - 61 U/L AST (SGOT) 15 15 - 37 U/L Alk. phosphatase 72 45 - 117 U/L Protein, total 6.7 6.4 - 8.2 g/dL Al bumin 2.1 (L) 3.5 - 4.7 g/dL Globulin 4.6 1.7 - 4.7 g/dL A-G Ratio 0.5 (L) 0.7 - 2.8PR OTHROMBIN TIME + INR Collection Time: 05/01/19 8:07 AMResult Value Ref Range Prothrombin time 10.9 9.4 - 11.1 sec INR 1.1 0.8 - 1.2PTT Collection Time: 05/01/19 8:07 AMResult Value Ref Range aPTT 23.6 21.0 - 28.0 SECImaging:Xr Chest Sngl VResult Date: 05/01/2019AP portable film of the chest clinical indication pneumonia Study is c ompared toprevious examination of April 30, 2019. Again noted is an extensive left m idlobe and lower lung infiltrate as well as a left pleural effusion. Also noted juancarlos ri ght perihilar infiltrate.IMPRESSION: Bilateral infiltrates and left pleural e ffusion ,Little change fromprior studyXr Chest Sngl VResult Date: 04/30/2019AP por table film of the chest clinical indication pleural effusion. Study iscompared to pr evious examination April 29, 2019. Study demonstrates a largeleft pleural effusio n and again infiltrate in the left perihilar and infrahilarregion. Smaller right pleu ral effusion is present. Prominence is noted in theright hilar region this may repres ent infiltrate or mass.IMPRESSION: 1. Bilateral pleural effusions left greater than right. 2. Littlechange in extensive left hilar and infrahilar infiltrate. 3. Marked prominenceto right hilar region differential given aboveImpression:Activ e Hospital Problems Diagnosis Date Noted Scrotal rash 04/21/2019 COPD with acute exacerbation (HCC) 04/19/2019 Acute on chronic respiratory failure with hypoxia and hypercapnia (HCC)04/19/2019 Acute hypoxemic respiratory failure (HCC) 03/15 Pneumonia 11/08/2018 NOAH. Diarrhea, not C diff, improvedPlan:Feedi ng on hold for ORD/c oral; vanco if ok with IDContinue merem.Awaiting trache and J t ubeFamily refused transfer.D/C planning if no surgery needed.Oralia Frankel MDJanuary 2019 Name Value Range Interpretation Code Description Data Harriett rce(s) Supporting Document(s ) ID Date Data Source [id number] 05/01/2019 08:51:46 AM EST [facility] ID Progress Note05/01/2019Subjective:Even ts notedPatient is scheduled for tracheostomy and jejunostomy placement.C. Diff test w as NEGATIVEEEG did not show any seizureAfebrileBlood cx remain negativeR david cx with pseudomonasObjective:Review of SystemsPatient is unable to provideVital s:Patient Vitals for the past 24 hrs: BP Temp Pulse Resp SpO2 Eqxhqv33/17/20 0800 151/ 86 97.8 F (36.6 C) 74 25 93 % -05/01/19 0600 167/78 - 77 24 97 % -05/01/19 0513 136/82 - 80 19 - -05/01/19 0500 (!) 179/145 - 85 22 - 59.6 kg (131 lb 6.3 oz)05/01/19 0400 135/79 97.2 F (36.2 C) 75 24 100 % -05/01/19 0306 134/85 - 93 24 - - 0 0300 (!) 150/136 - 96 28 - -05/01/19 0200 (!) 144/107 - 84 27 96 % -05/01/19 0000 154/84 97.9 F (36.6 C) 92 26 95 % -04/30/19 2300 (!) 154/91 - 91 24 97 % -04/30/19 2 200 (!) 147/104 - 96 23 98 % -04/30/19 2111 - - - - 93 % -04/30/191999 (!) 134/94 97. 2 F (36.2 C) 94 23 94 % -04/30/19 1900 149/90 - 92 21 91 % -04/30/19 1800 103/5 9 - 93 21 93 % -04/30/19 1700 145/82 - 85 27 94 % -04/30/19 1600 (!) 137/113 98.5 F (36.9 C) 89 25 92 % -04/30/19 1500 150/88 - 88 21 94 % -04/30/19 1400 (!) 154/96 - 8 9 24 - -04/30/19 1300 152/83 - 87 19 98 % -04/30/19 1200 149/77 98.9 F (37.2 C) 88 30 96 % -04/30/19 0900 133/82 - 89 (!) 31 91 % -Tmax: Temp (24hrs), Av.9 F ( 36.6 C), Min:97.2 F (36.2 C), Max:98.9 F(37.2 C)Physical Exam:General: Awake non verbal no distressEyes: Conjunctivae/corneas clear. PERRLNeck: S upple, symmetrical, trachea midline, no adenopathyLungs: bilateral breath harriett nds with basal crackles..Heart: Regular rate and rhythm, S1, S2 normal, no murmurAbdo men: Soft, non-tender. Bowel sounds normal. No masses, Noorganomegaly.peg+Back: S ymmetric, no curvature. ROM normal. No CVA tenderness.Extremities: No cyanosis ,chr onic lymphedema .Pulses: 2+ and symmetric all extremities.Skin: Skin color, texture, t urgor normal. No rashes or lesionsLymph nodes: Cervical, supraclavicular, and ax illary nodes normal.Current Facility-Administered MedicationsMedicat ion Dose Route Frequency vits A and D-white pet-lanolin (A&D) ointment Topical PRN furosemide (LASIX) injection 20 mg 20 mg IntraVENous BID methylPREDNISolone (PF) (SOLU-MEDROL) injection 40 mg 40 mg IntraVENous Q12H bacitracin 500 unit/gr am packet 1 Packet 1 Packet Topical TID vancomycin 50 mg/mL oral solution (compo unded) 125 mg 125 mg Per G Tube Q6H meropenem (MERREM) 500 mg in 0.9% sodium chloride (MBP/ADV) 50 mL MBP 0.5 gIntraVENous Q12H lamoTRIgine (LaMICtal ) tablet 100 mg 100 mg Per G Tube QPM LORazepam (ATIVAN) tablet 1 mg 1 mg Per G Tube QHS lamoTRIgine (LaMICtal) tablet 50 mg 50 mg Per G Tube DAILY sodium chlor wade (NS) flush 5-40 mL 5-40 mL IntraVENous PRN pantoprazole (PROTONIX) 40 mg in 0. 9% sodium chloride 10 mL injection 40 mgIntraVENous DAILY acetaminophen (TYLE NOL) tablet 650 mg 650 mg Oral Q6H PRN ondansetron (ZOFRAN) injection 4 mg 4 m g IntraVENous Q6H PRN magnesium hydroxide (MILK OF MAGNESIA) 400 mg/5 mL oral susp ension 30 mL 30mL Oral DAILY PRN albuterol-ipratropium (DUO-NEB) 2.5 MG-0 .5 MG/3 ML 3 mL Nebulization Q6HWA RT acetylcysteine (MUCOMYST) 100 mg/mL (10 %) nebulizer solution 400 mg 4 mLInhalation TID RT miconazole (MICOTIN) 2 % cream Topical BID budesonide (PULMICORT) 500 mcg/2 ml nebulizer suspension 500 mcg N ebulizationBID RT cinacalcet (SENSIPAR) tablet 60 mg 60 mg Oral DAILY heparin (porcine) injection 5,000 Units 5,000 Units SubCUTAneous U46XDplv:Recent Labs 04/29/2005WBC 13.0* 12.8* --HGB 9.6* 9.7* --PLT 581* 557* --BUN 45* -- 41*CREA 1.96* -- 2.00*Cultures:Lab ResultsComponent Value Date/Time Culture result: MODERATE PSEUDOMONAS AERUGINOSA (A) 04/26/2019 05 :00 PM Culture result: NO GROWTH 5 DAYS 04/25/2019 12:10 PM Culture result: NO G ROWTH 5 DAYS 04/25/2019 12:05 PMRadiology:Xr Chest Sngl VResult Date: 05/01/2019AP por table film of the chest clinical indication pneumonia Study is compared toprevious e xamination of April 30, 2019. Again noted is an extensive left midlobe and lower l eunice infiltrate as well as a left pleural effusion. Also noted juancarlos right perihilar infiltrate.IMPRESSION: Bilateral infiltrates and left pleural effusion ,Little change fromprior studyXr Chest Sngl VResult Date: 04/30/2019AP portable film of the chest c linical indication pleural effusion. Study iscompared to previous examination 2019. Study demonstrates a largeleft pleural effusion and again infiltrate in the left perihilar and infrahilarregion. Smaller right pleural effusion is presen t. Prominence is noted in theright hilar region this may represent infiltrate or mass.IMPRESSION: 1. Bilateral pleural effusions left greater than right. 2. Li ttlechange in extensive left hilar and infrahilar infiltrate. 3. Marked promine nceto right hilar region differential given aboveAssessment: Staph sepsis. Aspirat ion pneumonia (pseudomonas) Acute COPD exacerbation. Acute respiratory failure . Pleural effusion. Dysphagia Fever Plan:1. Continue meropenem2. Continue or al vancomycin prophylaxis dose3. Follow blood cxFoluke Nayan [facility]45 AM Name Value Range Interpretation Code Description Data [facility](s) Supporting Document(s ) ID Date Data Source [id number] 05/01/2019 08:26:23 AM EST [facility] AP portable film of the chest clinical i ndication pneumoniaStudy is compared to previous examination of April 30, 2019 . Again noted is anextensive left mid lobe and lower lung infiltrate as well as a l eft pleuraleffusion. Also noted is a right perihilar infiltrate.IMPRESSION:Bilatera l infiltrates and left pleural effusion ,Little change from prior study Signing date/time: 05/01/2019 8:26 AMSigned by: ROSEANNE SÁNCHEZ Name Value Range Interpretation Code Description Data Harriett rce(s) Supporting Document(s ) ID Date Data Source [id number] 05/01/2019 08:10:51 AM EST [facility] Relevant ProblemsNo relevant active prob lemsAnesthetic HistoryReview of Systems / Medical HistoryPatient summary reviewed, nursing notes reviewed and pertinent labs reviewedPulmonaryCOPDPneumonia Neuro/Psy chPsychiatric historyComments: parkinsons CardiovascularGI/Hepatic/RenalGERD Endo/ Other Other FindingsPhysical ExamAirwayMallampati: IITM Distance: 4 - 6 cmNeck ROM: normal range of motion Cardiovascular DentalPulmonary Abdominal Other FindingsAnesthetic PlanASA: 4Anesthesia type: general Name Value Range Interpretation Code Description Data Harriett rce(s) Supporting Document(s ) ID Date Data Source [id number] 05/01/2019 09:04:15 AM EST [facility] Name Value Range Interpretation Description Data Sup porting Code Source(s) Document(s ) Sodium 145 136-145 [facility] - [Moles/volume] in mmol/L [facility] Serum or [facility] Potassium 3.6 3.5-5.1 [facility] - [Moles/volume] in mmol/L [facility] Serum or [facility] Chloride 107 98-107 [facility] - [Moles/volume] in mmol/L [facility] Serum or [facility] Carbon dioxide, 35 21-32 Above high [facility] - total mmol/L normal [facility] [Moles/volume] in Taoist Serum or [facility] Anion gap in Serum 7 10-20 Below low normal [facility] - or Plasma mmol/L [facility] Glucose 89 74-106 [facility] - [Mass/volume] in mg/dL [facility] or [facility] Urea nitrogen 44 7-18 Above high [facility] - [Mass/volume] in mg/dL normal [facility] Serum or [facility] Creatinine 1.93 0.70-1. Above high [facility] - [Mass/volume] in mg/dL 30 normal [facility] Serum or [facility] Glomerular 45 >60 Below low normal [facility] - filtration ml/min/ Good rate/1.73 sq M 1.73m2 Taoist predicted among Hospital blacks [Volume Rate/Area] in Serum or Plasma by Creatinine-based formula (MDRD) Glomerular 37 >60 Below low normal [facility] - filtration ml/min/ Good rate/1.73 sq M 1.73m2 Taoist predicted among Hospital non-blacks [Volume Rate/Area] in Serum or Plasma by Creatinine-based formula (MDRD) Calcium 10.0 8.5-10. [facility] - [Mass/volume] in mg/dL 1 Good Serum or Plasma [facility] Bilirubin.total 0.4 0.2-1.0 [facility] - [Mass/volume] in mg/dL Good Serum or Plasma [facility] Alanine 12 U/L 13-61 Below low normal [facility] - aminotransferase Good [Enzymatic Taoist activity/volume] in Hospital Serum or Plasma Aspartate 15 U/L 15-37 [facility] - aminotransferase Good [Enzymatic Taoist activity/volume] in Hospital Serum or Plasma by With P-5'-P Alkaline 72 U/L 45-117 [facility] - phosphatase Good [Enzymatic Taoist activity/volume] in Hospital Serum or Plasma Protein 6.7 6.4-8.2 [facility] - [Mass/volume] in g/dL Good Serum or Plasma [facility] Albumin 2.1 3.5-4.7 Below low normal [facility] - [Mass/volume] in g/dL Good Serum or Plasma by Taoist Bromocresol [facility] (BCP) dye binding method Globulin 4.6 1.7-4.7 [facility] - [Mass/volume] in g/dL Good Serum by [facility] Albumin/Globulin 0.5 0.7-2.8 Below low normal [facility] - [Mass Ratio] in Good Serum or Plasma [facility] ID Date Data Source [id number] 05/01/2019 09:04:15 AM EST [facility] Name Value Range Interpretation Description Data Sup porting Code Source(s) Document(s ) Magnesium 2.7 mg/dL 1.6-2.6 Above high normal [facility] - Good [Mass/volume] Taoist in Serum or Hospital Plasma ID Date Data Source [id number] 05/01/2019 09:11:14 AM EST [facility] Name Value Range Interpretation Description Data Sup porting Code Source(s) Document(s ) Leukocytes 11.9 4.8-10.6 Above high normal [facility] - [#/volume] in K/uL Good Blood by Taoist Automated count [facility] Erythrocytes 3.39 4.70-6.0 Below low normal [facility] - [#/volume] in M/uL 0 Good Blood by Taoist Automated count Hospital Hemoglobin 10.2 14.0-18. Below low normal [facility] - [Mass/volume] in g/dL 0 [facility] Blood [facility] Hematocrit 32.9 % 42.0-52. Below low normal [facility] - [Volume 0 Good Fraction] of Taoist Blood by Hospital Automated count Erythrocyte mean 97.1 FL 81.0-94. Above high normal [facility] - corpuscular 0 Good volume [Entitic Taoist volume] by Hospital Automated count Erythrocyte mean 30.1 PG 27.0-35. [facility] - corpuscular 0 Good hemoglobin Taoist [Entitic mass] Hospital by Automated count Erythrocyte mean 31.0 30.7-37. [facility] - corpuscular g/dL 3 Good hemoglobin Taoist concentration [facility] [Mass/volume] by Automated count Erythrocyte 17.5 % 11.5-14. Above high normal [facility] - distribution 0 Good width [Ratio] by Taoist Automated count Hospital Platelets 577 K/uL 130-400 Above high normal [facility] - [#/volume] in Good Blood by Taoist Automated count Hospital Platelet mean 9.3 FL 9.2-11.8 [facility] - volume [Entitic Good volume] in Blood Taoist by Automated Hospital count Nucleated 0.0 PER 0 [facility] - erythrocytes/100 100 WBC Good leukocytes Taoist [Ratio] in Blood Hospital Nucleated 0.00 0.0-0.01 [facility] - erythrocytes K/uL Good [#/volume] in [facility] Segmented 82 % 48.0-72. Above high normal [facility] - neutrophils/100 0 Good leukocytes in [facility] Lymphocytes/100 14 % 18.0-40. Below low normal [facility] - leukocytes in 0 [facility] Blood [facility] Monocytes/100 4 % 2.0-12.0 [facility] - leukocytes in [facility] Blood [facility] Eosinophils/100 0 % 0.0-7.0 [facility] - leukocytes in [facility] Blood [facility] Basophils/100 0 % 0.0-3.0 [facility] - leukocytes in [facility] Blood [facility] Immature 1 % 0-0.5 Above high normal [facility] - granulocytes/100 Good leukocytes in Taoist Blood by Hospital Automated count Segmented 9.7 K/UL 2.3-7.6 Above high normal [facility] - neutrophils Good [#/volume] in [facility] Lymphocytes 1.6 K/UL 0.9-4.2 [facility] - [#/volume] in [facility] Monocytes 0.5 K/UL 0.1-1.7 [facility] - [#/volume] in [facility] Eosinophils 0.0 K/UL 0.0-1.0 [facility] - [#/volume] in [facility] Basophils 0.0 K/UL 0.0-0.4 [facility] - [#/volume] in [facility] Immature 0.1 K/UL 0.0-0.17 [facility] - granulocytes Good [#/volume] in [facility] by Hospital Automated count Differential [facility] - cell count Good method [facility] ID Date Data Source [id number] 05/01/2019 09:07:34 AM EST [facility] Name Value Range Interpretation Description Data Sup porting Code Source(s) Document(s ) aPTT in 23.6 SEC 21.0-28. [facility] - Good Platelet poor [address] [place] [address] plasma by Hospital Coagulation assay Therapeutic Range = 42.0-60.0 secs ID Date Data Source [id number] 05/01/2019 09:07:34 AM EST [facility] Name Value Range Interpretation Description Data Sup porting Code Source(s) Document(s ) Prothrombin 10.9 sec 9.4-11.1 [facility] time (PT) [facility] INR in 1.1 0.8-1.2 [facility] - Good Platelet poor Taoist plasma by Hospital Coagulation assay ID Date Data Source [id number] 05/01/2019 07:17:59 AM EST [facility] Verbal shift change report given to chana thornton rn (oncoming nurse) by - NANCY ESPOSITO (offgoing nurse). Report given with SBA R, Kardex, MAR and Recent Results. Name Value Range Interpretation Code Description Data Harriett rce(s) Supporting Document(s ) ID Date Data Source [id number] 05/01/2019 06:01:54 AM EST [facility] Name Value Range Interpretation Description Data Sup porting Code Source(s) Document(s ) pH of Arterial 7.50 7.35-7.4 Above high normal [facility] - Good blood 5 [facility] Carbon dioxide 48 mmHg 32-48 [facility] - Good [Partial Taoist pressure] in Hospital Arterial blood Oxygen 71 mmHg 83-108 Below low normal [facility] - Good [Partial Taoist pressure] in Hospital Arterial blood Carbon 39 19-24 Above high normal [facility] - Good dioxide, total mmol/L [facility] [Moles/volume] Hospital in Arterial blood Bicarbonate 37 21-28 Above high normal [facility] - Go od [Moles/volume] mmol/L [facility] in Arterial Hospital blood Oxygen 99 % 94-98 Above high normal [facility] - Good saturation in [facility] Base excess in 12.4 0-3 Above high normal [facility] - Good Arterial blood mmol/L [facility] by calculation Hospital Body site [facility] Good [facility] Arterial [facility] - Good patency Wrist Taoist artery --pre Hospital arterial puncture NASAL O23 Service comment [id number] [facility] ID Date Data Source [id number] 05/01/2019 12:52:19 AM [facility] Pt remains restless, keeps pulling nasal cannula off. Wrist restraint applied.Hospitalist face to face, ordere d restraint Name Value Range Interpretation Code Description Data Harriett rce(s) Supporting Document(s ) ID Date Data Source [id number] 04/30/2019 09:13:19 PM [facility] Progress Bella Scfcrzedy77 y.o.Adm it Date: 04/19/2019Active Problems: Pneumonia (11/08/2018) Acute hypoxemic respiratory failure (HCC) (03/25/2019) COPD with acute exacerbation (HCC) (04/19/2019) Acute on chronic respiratory failure with hypoxia and hypercapnia (HCC)(04/19/2019) Scrotal torsten h (04/21/2019)Subjective:Patient was extubated yesterday , agitated on restraints.PEG i n place , feeding in progress at 25ml/h, minimal residual, good exit site.Rectal tube in place ,no BM since last nightC diff negative.Pertinent items are noted in th e History of Present Illness.Objective:Visit VitalsBP (!) 134/94 (BP 1 [facility] Patient Position: At rest)Pulse 94Temp 97.2 F (36.2 C)Resp 23Ht 5' 2" (1.575 m)Wt 61.1 kg (134 lb 11.2 oz)SpO2 94%BMI 24.64 kg/m Intake and Output:Date 04/29/191899 - 04/30/19 0659 04/30/19 0700 - 05/01/19 0659Shift 4209-1787 24 Hour T otal 6692-4505 4947-9404 24 Hour TotalINTAKEI.V.(mL/kg/hr) 50 100 50(0.1) 50 Volume (meropenem (MERREM) 500 mg in 0.9% sodium chloride (MBP/ADV) 50 mL MBP )50 100 50 50NG/GT 410 450 450 Water Flush Volume (mL) (PEG/Gastrostomy Tube) 150 150 Medication Volume (PEG/Gastrostomy Tube) 160 Intake (ml) (PEG/Gastrostomy Tube) 250 300 300Shift Total(mL/kg) 50(0.8) 510(8.3) 500(8.2) 500(8.2)OUTPUTUrine(mL/kg/hr) 800 2250 1100(1.5) 1100 Urine Voided 800 1550 Urine Occurrence(s) 1 x Urine Output (mL) (Condom Catheter 04/29/19) 1100 1100 Urine Output (mL) ([REMOVED] Urinary Catheter 04/25/19) 700Drains 200 600 75 75 Output (ml) (Fecal Management) 200 600 75 75Shift Total(mL/kg) 1000(16.4) 2850 (46.6) 1175(19.2) 1175(19.2)NET -950 -6380 -675 -675Weight (kg) 61.1 61.1 61.1 61. 1 61.1Medications Reviewed:Current Facility-Administered MedicationsMedicat ion Dose Route Frequency Provider Last Rate Last Dose vits A and D-white pet-lanoli n (A&D) ointment Topical PRN Reinier, Mili,DO furosemide (LASIX) injection 20 mg 20 mg IntraVENous BID Oralia Frankel MD20 mg at 04/30/19 1710 methylPREDNISo lone (PF) (SOLU-MEDROL) injection 40 mg 40 mg IntraVENous [id number] tam MD 40 mg at 04/30/19 0817 bacitracin 500 unit/gram packet 1 Packet 1 Packet Topi inez TID Krystian Monae MD 1 Packet at 04/30/19 1707 vancomycin 50 mg/mL oral solution (compounded) 125 mg 125 mg Per G Tube [id number] severino MD 125 mg at 0 04/30/19 1708 meropenem (MERREM) 500 mg in 0.9% sodium chloride (MBP/ADV) 50 mL MBP 0.5 gIntraVENous Q12H Monica Gomez MD 16.7 mL/hr at 04/30/19 0909 500 mg at 0909 lamoTRIgine (LaMICtal) tablet 100 mg 100 mg Per G Tube QPM Roberto Burgos M D100 mg at 04/30/19 1707 LORazepam (ATIVAN) tablet 1 mg 1 mg Per G Tube QHS Mili Hills DO 1 mgat 04/29/19 2134 lamoTRIgine (LaMICtal) tablet 50 mg 50 mg Per G Tube DAILY Roberto Burgos MD50 mg at 04/30/19 0816 sodium chloride (NS) flus h 5-40 mL 5-40 mL IntraVENous PRN Krystian Monae MD pantoprazole (PROTONIX) 40 mg in 0.9% sodium chloride 10 mL injection 40 mgIntraVENous DAILY Krystian Monae MD 40 mg at 04/30/19 0815 acetaminophen (TYLENOL) tablet 650 mg 650 mg Oral Q6H PRN Krystian Monae MD650 mg at 04/26/19 0453 ondansetron (ZOFRAN) injection 4 mg 4 mg IntraVENous Q6H PRN Krystian Monae MD magnesium hydroxide (MILK OF MAGNESIA) 4 00 mg/5 mL oral suspension 30 mL 30mL Oral DAILY PRN Krystian Monae MD albuterol-i pratropium (DUO-NEB) 2.5 MG-0.5 MG/3 ML 3 mL Nebulization Q6HWA RTNelson, Mili, DO 3 mL at 04/30/192109 acetylcysteine (MUCOMYST) 100 mg/mL (10 %) nebulizer so lution 400 mg 4 mLInhalation TID RT Mili Hills DO 400 mg at 04/30/190 m iconazole (MICOTIN) 2 % cream Topical BID Zuly Lacey, OLIVER budesonide (PULMICOR T) 500 mcg/2 ml nebulizer suspension 500 mcg NebulizationBID RT Krystian Monae MD 5 00 mcg at 04/30/192109 cinacalcet (SENSIPAR) tablet 60 mg 60 mg Oral KYLEIGH Y Mili Hills DO 60mg at 04/30/19 08 heparin (porcine) injection 5,000 Units 5,000 Units SubCUTAneous Q12H Mili Hills DO 5,000 Units at 04/15 10/02 1714Physical Exam:Physical Exam:General: Alert, cooperative, no distress, appear s stated age.Eyes: Conjunctivae/corneas clear. PERRL, EOMs intact.Neck: Supple, symmetrical, trachea midline, no adenopathy, thyroid: noenlargement/tenderness/nodule s, no carotid bruit and no JVD.Lungs: Clear to auscultation bilaterally.Heart: Regu lar rate and rhythm, S1, S2 normal, no murmur, click, rub or gallop.Abdomen: Soft, non-tender. Bowel sounds normal. No masses, No organomegaly.Extremities: Ex tremities normal, atraumatic, no cyanosis or edema,Pulses: 2+ and symmetric all extre mities.Skin: Skin color, texture, turgor normal. No rashes or lesionsData Review: Recent Results (from the past 24 hour(s))CBC W/O DIFF Collection Time: 04/30/19 4:23 AMResult Value Ref Range WBC 13.0 (H) 4.8 - 10.6 K/uL RBC 3.19 (L) 4.70 - 6.00 M/uL HGB 9.6 (L) 14.0 - 18.0 g/dL HCT 30.9 (L) 42.0 - 52.0 % MCV 96.9 (H) 81.0 - 94.0 F L MCH 30.1 27.0 - 35.0 PG MCHC 31.1 30.7 - 37.3 g/dL RDW 17.5 (H) 11.5 - 14.0 % JOCELYN TELET 581 (H) 130 - 400 K/uL MPV 9.5 9.2 - 11.8 FL NRBC 0.0 0 PER 100 WBC ABSOLUTE NRBC 0.00 0.0 - 0.01 K/uLRENAL FUNCTION PANEL Collection Time: 04/30/19 4:23 AMResult Value Ref Range Sodium 144 136 - 145 mmol/L Potassium 3.7 3.5 - 5.1 mmol/L Chloride 108 (H) 98 - 107 mmol/L CO2 32 21 - 32 mmol/L Anion gap 8 (L) 10 - 20 mmol/L Glucose 1 21 (H) 74 - 106 mg/dL BUN 45 (H) 7 - 18 mg/dL Creatinine 1.96 (H) 0.70 - 1.30 mg/dL GF R est AA 44 (L) >60 ml/min/1.73m2 GFR est non-AA 36 (L) >60 ml/min/1.73m2 Calcium 9.6 8.5 - 10.1 mg/dL Phosphorus 3.8 2.5 - 4.9 mg/dL Albumin 1.9 (L) 3.5 - 4.7 g/dLMAGN ESIUM Collection Time: 04/30/19 4:23 AMResult Value Ref Range Magnesium 2.6 1 .6 - 2.6 mg/dLImaging:Xr Chest Sngl VResult Date: 04/30/2019AP portable film [facility] pleural effusion. Study iscompared to previous examination April 29, 2019. Study demonstrates a largeleft pleural effusion and again inf iltrate in the left perihilar and infrahilarregion. Smaller right pleural effusion is present. Prominence is noted in theright hilar region this may represent infiltrate or mass.IMPRESSION: 1. Bilateral pleural effusions left greater than righ t. 2. Littlechange in extensive left hilar and infrahilar infiltrate. 3. Marked pro minenceto right hilar region differential given aboveImpression:Active Hospital Pr oblems Diagnosis Date Noted Scrotal rash 04/21/2019 COPD with acute exacerbation (HCC) 04/19/2019 Acute on chronic respiratory failure with hypoxia and hyp ercapnia (HCC)04/19/2019 Acute hypoxemic respiratory failure (HCC) 03/25/2019 Pn eumonia 11/08/2018 NOAH. Diarrhea, not C diff, improvedPlan:Continue feeding, i ncrease slowlyD/c oral; vanco if ok with IDContinue merem.Awaiting surgical follo w up for opossible J tube and tracheostomy at the sametime.[facility] if no surgery needed.Oralia Frankel MDJanuary 2019 Name Value Range Interpretation Code Description Data [facility] Supporting Document(s ) ID Date Data Source [id number] 04/30/2019 07:21:41 PM [facility] Bedside and Verbal shift change report g iven to Chay Cooney RN (oncoming nurse)by Johann Mojica RN (offgoing nurse). Re port included the followinginformation SBAR, Kardex, Procedure Summary, MAR and Recen t Results. Name Value Range Interpretation Code Description Data [facility] Supporting Document(s ) ID Date Data Source [id number] 04/30/2019 06:49:55 PM [facility] [address]. Ovalle (health proxy) [phone] aware of plan for Trach/Peg 05/01/18 @12pm, awaiting call from for consent. . Name Value Range Interpretation Code Description Data [facility](s) Supporting Document(s ) ID Date Data Source [id number] 04/30/2019 03:26:53 PM [facility] Surgery Progress NoteNAME: Evelio Abraham beinDOB: 1950MRN: [id number]:Being seen for feeding jejunostomy. He has had issues with aspiration withgastric feeding so G tube was converted to J tube. 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 Pupils are equalBack: Symmetric, No CVA tenderness.Chest wall: No Accessory mus neo use.Heart: Regular rate and rhythm, no murmur, rub or gallop.Abdomen: Soft, n on-tender, incisional hernia in upper midline, G tube in placein LLQ.Lab Data Reviewed:CBC w/Diff Recent Labs 04/29/2005WBC 13.0* 12.8* 11.1*HGB 9.6* 9.7* 8.8*HCT 30.9* 30.8* 27.6*MCV 96.9* 96.9* 95.2*PLT 581* 557* 524*GRANS -- -- 92*LYMPH -- -- 6*EOS -- -- 0Chemistry Recent Labs [id number] 04/29/2002GLU 121* -- 96 -- 149*NA 144 -- 138 -- 139K 3.7 -- 4.1 -- 3.7CL 108* -- 106 -- 107CO2 32 32* 2 5 < > 28BUN 45* -- 41* -- 35*CREA 1.96* -- 2.00* -- 1.98* < > = values in th is interval not displayed. Recent Labs 01/16/241827 01/15/531358 01/14/047545OU 9.6 9.8 9.2PHOS 3.8 4.0 --ALB 1.9* 1.8* 1.5*TBILI -- -- 0.2AP -- -- 63SG OT -- -- 9*ALT -- -- 8*Coagulation No results for input(s): PTP, INR, APTT, IN REXT in the last 72hours.IMAGING RESULTS:Xr Chest Sngl VResult Date: 04/30/2019AP por table film of the chest clinical indication pleural effusion. Study iscompared to pr evious examination April 29, 2019. Study demonstrates a largeleft pleural effusio n and again infiltrate in the left perihilar and infrahilarregion. Smaller right pleu ral effusion is present. Prominence is noted in theright hilar region this may repres ent infiltrate or mass.IMPRESSION: 1. Bilateral pleural effusions left greater than right. 2. Littlechange in extensive left hilar and infrahilar infiltrate. 3. Marked prominenceto right hilar region differential given aboveAssessment:68-ye ar-old male with extensive past medical history who has had feedingjejunostomy p laced 6 months ago. Postoperative course was complicated byseepage of acetic fluid th rough the incision and led to ventral herniaformation. Surgery on board for P lacement of jejunostomy tube placement to preventaspiration issues.He also needs t racheostomy due to excessive pulmonary secretions.Palliative care option was di scussed and they would like to proceed withaggressive carePlan:Continue current care for nowNPO after midnightHe is on schedule for jejunostomy and tracheostom y placement for tomorrowPre op labs in am.Thank you for allowing me to particip ate in this patients care and please callme on [phone] with questions and asher rnsSigned By: Kareen Mills MD 04/30/2019 3:20 PM Name Value Range Interpretation Code Description Data Harriett rce(s) Supporting Document(s ) ID Date Data Source [id number] 04/30/2019 03:09:43 PM [facility] CM reached out to speak with the patient 's niece, Joyce ([phone]). CMdiscussed palliative care and advance directives. 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 CM discussed options for vent facilities if patient isunable to be weaned off of the vent. If patient is able to be weaned familywishes for patient to remain at [facility] ([phone]) would be the facility for thevent for the patient if he is unable to be weaned. The family has been in touch with the route process administrator of that facility. Name Value Range Interpretation Code Description Data [facility] rce(s) Supporting Document(s ) ID Date Data Source [id number] 04/30/2019 02:55:21 PM [facility] Pt is scheduled for a J tube tomorrow to replace PEG/J tube pt has (hx ofdysfunction).Pt was extubated yesterda y and is tachypnic.. Pulmonary MD to order Tracheostomy Name Value Range Interpretation Code Description Data [facility](s) Supporting Document(s ) ID Date Data Source [id number] 04/30/2019 01:05:29 PM [facility] AP portable film of the chest clinical i ndication pleural effusion.Study is compared to previous examination April 29, 2019 . Study demonstrates alarge left pleural effusion and again infiltrate in the lef t perihilar andinfrahilar region. Smaller right pleural effusion is present. Promi nence isnoted in the right hilar region this may represent infiltrate or mass.IMPRESS ION:1. Bilateral pleural effusions left greater than right.2. Little change in e xtensive left hilar and infrahilar infiltrate.3. Marked prominence to right hilar region differential given above Signing date/time: 04/30/2019 1:05 PMSig nataly by: ROSEANNE SÁNCHEZ Name Value Range Interpretation Code Description Data [facility] Supporting Document(s ) ID Date Data Source [id number] 04/30/2019 12:33:21 PM [facility] Critical Care Progress [facility]Krystian Monae MD., F.C.C.Ratna Hamilton MD., F.C.C.P. [address] [place] [address] Jaime, Nicole Y [address] Name: Evelio JohnsoninDOB: 1950MRN: [id number]: 04/30/2019Subjective:Mr. Carlin is a 68 y.o. year old male who is being see n for ACUTEHYPERCAPNIC AND HYPOXIC RESPIRATORY FAILURE . HE SI MORE DYSPNEI C TODAY AND IS USING ACCESSORY MUSCLES , RR = 33 / MT HEIS ALSO LETHARGIC THAN BEFO RE. WBC =11724 HB = 9.6, HCT = 31 BUN= 45 CR = 1. 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) Pneumoni a Psychiatric disorder schizophrenia Pulmonary emboli (HCC) Schizophrenia (H CC)Allergy:No Known AllergiesVital Signs:Patient Vitals for the past 24 hrs : BP Temp Pulse Resp SpO2 Xbcyls23/16/20 0900 133/82 - 89 (!) 31 91 % -04/30/19 0800 1 48/88 - 95 27 90 % -04/30/19 0700 163/81 98.7 F (37.1 C) 97 21 94 % -04/30/19 0600 ( !) 138/99 - 96 27 93 % 61.1 kg (134 lb 11.2 oz)04/30/19 0500 118/88 - 96 (!) 33 96 % -04/30/19 0402 - 97.8 F (36.6 C) - - - -04/30/19 0400 142/86 - 94 22 95 % -04/15 10/02 0300 (!) 132/94 - 91 27 96 % -04/30/19 0200 150/83 - 89 30 96 % -04/30/19 0100 101/71 - 94 29 95 % -04/30/19 0000 152/88 - (!) 103 22 91 % -04/29/19 2332 - 98.5 F (36.9 C) - - - -04/29/19 2300 159/90 - 99 29 90 % -04/29/19 2200 164/90 - (!) 105 28 91 % -04/29/19 2149 - - - - 93 % -04/29/19 2128 - - - - 93 % -04/29/19 2100 (!) 151 /94 - 97 (!) 31 94 % -04/29/19 2000 154/85 98.3 F (36.8 C) 96 26 96 % -04/29/19 1 900 161/87 - 100 24 95 % -04/29/19 1800 (!) 154/107 - 88 26 96 % -04/29/19 1700 144/ 72 - 88 30 (!) 89 % 62.9 kg (138 lb 10.7 oz)04/29/19 1600 147/77 98.2 F (36.8 C ) 91 29 95 % -04/29/19 1500 139/76 - 95 24 92 % -04/29/19 1400 (!) 137/102 - (!) 102 ( !) 33 92 % -04/29/19 1300 161/87 - 85 28 95 % -Pulse OX:SpO2 Readings from Last 6 Enco unters:04/30/19 91%04/16/19 100%04/06/19 99%03/17/19 92%02/19/19 96%02/18/19 92%@ LASTSAO2(6)@Intake/Output:Last shift: 04/30 700 - 04/30 1899In: 50 [I.V.:50]O ut: -Last 3 shifts: 04/28 1900 - 04/30 07In: 560 [I.V.:150]Out: 3850 [Urine:3 250; Drains:600]Intake/Output Summary (Last 24 hours) at 04/30/2019 1207Last data yoshi ed at 04/30/2019 0909Gross per 24 hourIntake 400 mlOutput 2150 mlNet -1750 mlHemodyna mics:.@MAP.@CVPVentilator Settings:Ventilator Mode: Pressure supportRespiratory RateIn sp Time (sec): 1 secI:E Ratio: 1:2.3Ventilator VolumesVt Set (ml): 400 mlVt Exhaled (Machine Breath) (ml): 414 mlVt Spont (ml): 399 mlVe Observed (l/min): 9 .4 l/minVentilator PressuresPressure Support (cm H2O): 10 cm H2OPIP Observed (cm H2O) : 16 cm H2OMAP (cm H2O): 8PEEP/VENT (cm H2O): 5 cm N16Qumf PEEP Observed (cm H2O): 2.3 cm T7WEooi Rate Tidal Volume Pressure FiO2 PEEPPressure support 400 ml 10 cm H2O 40 % 5 cm X89Erux airway pressure: 16 cm O0QIhyulb ventilation: 9.4 l/minARDS net work Guidelines: Lung protective strategy and Pl pressure goals N / Aess than or equ al to 30Physical Exam:MORE DYSPNEIC AND MORE TACHYPNEA RR= 30- 33 / MT MORE CONFUS ED .UNABLE TO CLEAR SECRETIONS General: Alert, cooperative, MODERATE RESPIRATORY distress, appearsstated age. Head: Normocephalic, without obvious abnormality, atraumatic. Eyes: Conjunctivae/corneas clear. PERR L, EOMs intact. Nose: Nares normal. No drainage or sinus tenderness Throat: Lips, mucosa, and tongue normal Neck: Supple, symmet rical, trachea midline, no adenopathy,thyroid: no enlargem ent/tenderness/nodules, no carotid bruit and no JVD. Lungs: BREATH SOUNDS DECREASED RT LUNG > LEFT , WHEEZING +2 ,RALES R L L AND L L L to auscultatio n bilaterally. Chest Wall: No tenderness or deformity. Heart: Regula r rate and rhythm, S1, S2 normal, no murmur, click,rub or gallop. Abdomen: Soft , non-tender. Bowel sounds normal. No masses, No organomegaly. Extremities: Extrem ities CONTRACTED , atraumatic, no cyanosis or edema. Pulses: 4+ bilaterally Skin: Skin color, texture, turgor normal. No rashes or lesions. Ne urologic: CNII-XII intact. No focal motor or sensory deficit.DATA:Current Facility -Administered MedicationsMedication Dose Route Frequency vits A and D-white pet- lanolin (A&D) ointment Topical PRN furosemide (LASIX) injection 20 mg 20 m g IntraVENous BID methylPREDNISolone (PF) (SOLU-MEDROL) injection 40 mg 40 mg Int raVENous Q12H bacitracin 500 unit/gram packet 1 Packet 1 Packet Topical TID v ancomycin 50 mg/mL oral solution (compounded) 125 mg 125 mg Per G Tube Q6H meropenem (MERREM) 500 mg in 0.9% sodium chloride (MBP/ADV) 50 mL MBP 0.5 gIntraVENous Q1 2H lamoTRIgine (LaMICtal) tablet 100 mg 100 mg Per G Tube QPM LORazepam (ATIVAN) ta blet 1 mg 1 mg Per G Tube QHS lamoTRIgine (LaMICtal) tablet 50 mg 50 mg Per G Tub e DAILY sodium chloride (NS) flush 5-40 mL 5-40 mL IntraVENous PRN pantoprazole (P ROTONIX) 40 mg in 0.9% sodium chloride 10 mL injection 40 mgIntraVENous DAILY aceta minophen (TYLENOL) tablet 650 mg 650 mg Oral Q6H PRN ondansetron (ZOFRAN) injection 4 mg 4 mg IntraVENous Q6H PRN magnesium hydroxide (MILK OF MAGNESIA) 400 mg/5 mL oral suspension 30 mL 30mL Oral DAILY PRN albuterol-ipratropium (DUO-NEB) 2.5 MG-0 .5 MG/3 ML 3 mL Nebulization Q6HWA RT acetylcysteine (MUCOMYST) 100 mg/mL (10 %) nebulizer solution 400 mg 4 mLInhalation TID RT miconazole (MICOTIN) 2 % cream Topical BID budesonide (PULMICORT) 500 mcg/2 ml nebulizer suspension 500 mcg N ebulizationBID RT cinacalcet (SENSIPAR) tablet 60 mg 60 mg Oral DAILY heparin (porcine) injection 5,000 Units 5,000 Units SubCUTAneous W78FJvtnddnok: [x]Sinus []A -flutter []Paced []A-fib []Multiple PVC'sLabs:Recent Results (from the past 24 hour(s))CBC W/O DIFF Collection Time: 04/30/19 4:23 AMResult Value Ref Range WBC 13.0 (H) 4.8 - 10.6 K/uL RBC 3.19 (L) 4.70 - 6.00 M/uL HGB 9.6 (L) 14.0 - 18.0 g/dL HCT 30.9 (L) 42.0 - 52.0 % MCV 96.9 (H) 81.0 - 94.0 FL MCH 30.1 27.0 - 35.0 PG M CHC 31.1 30.7 - 37.3 g/dL RDW 17.5 (H) 11.5 - 14.0 % PLATELET 581 (H) 130 - 400 K/uL M PV 9.5 9.2 - 11.8 FL NRBC 0.0 0 PER 100 WBC ABSOLUTE NRBC 0.00 0.0 - 0.01 K/uLRENAL FUNCTION PANEL Collection Time: 04/30/19 4:23 AMResult Value Ref Range Sodium 144 136 - 145 mmol/L Potassium 3.7 3.5 - 5.1 mmol/L Chloride 108 (H) 98 - 107 mmol/L CO2 32 21 - 32 mmol/L Anion gap 8 (L) 10 - 20 mmol/L Glucose 121 (H) 74 - 106 mg/dL BU N 45 (H) 7 - 18 mg/dL Creatinine 1.96 (H) 0.70 - 1.30 mg/dL GFR est AA 44 (L) >60 ml/min/1.73m2 GFR est non-AA 36 (L) >60 ml/min/1.73m2 Calcium 9.6 8.5 - 10.1 mg/ dL Phosphorus 3.8 2.5 - 4.9 mg/dL Albumin 1.9 (L) 3.5 - 4.7 g/dLMAGNESIUM Collection T jose alejandro: 04/30/19 4:23 AMResult Value Ref Range Magnesium 2.6 1.6 - 2.6 mg/dLABG:Recent Labs 04/28/2013PH 7.45 7.48* 7.46*PCO2 44 3 9 39PO2 70* 98 111*HCO3 31* 29* 28FIO2 40.0 40.0 40.0Recent Glucose Results:Lab Resu ltsComponent Value Date/Time GLU 121 (H) 04/30/2019 04:23 AMCULTURES:All Micro Re sults Procedure Component Value Units Date/Time CULTURE, RESPIRATORY/SPUTUM/BR ONCH W GRAM STAIN [[id number]] (Abnormal)(Susceptibility) Collected: 0 04/26/19 1700 Order Status: Completed Specimen: Sputum from Tracheal Aspirate Updated:04/29/19 1051 Special Requests: NO SPECIAL REQUESTS GRAM STAIN 10-25 WBC/l pf <10 EPI/lpf FEW GRAM POSITIVE RODS Culture result: MODERATE PSEUDOMONAS AE RUGINOSA CULTURE, BLOOD [[id number]] Collected: 04/25/19 1205 Order Status: Completed Specimen: Blood Updated: 04/29/19 0607 Special Requests: NO SPEC IAL REQUESTS Culture result: NO GROWTH 4 DAYS CULTURE, BLOOD [[id number]] Collecte d: 04/25/19 1210 Order Status: Completed Specimen: Blood Updated: 04/29/19 0607 Special Requests: NO SPECIAL REQUESTS Culture result: NO GROWTH 4 DAYS C. DIFF ICILE (DNA) [[id number]] Collected: 04/27/19 0915 Order Status: Completed Specimen: Stool Updated: 04/27/19 1246 C. difficile (DNA) NEGATIVE Comment: This specimen i s negative for toxigenic C difficile by DNAamplification. Repeat testing is not recommended for confirmation, samplesreceived within 7 days of this ne gative result will be rejected. C. DIFFICILE (DNA) [[id number]] (Abnormal) Collected: 04/25/19 1715 Order Status: Completed Specimen: Stool Updated: 04/26/19 1551 C. difficile (DNA) TEST RESULT IS INCONCLUSIVE. PLEASE SUBMIT A NEW SPECIM EN FOR ANALYSIS. CULTURE, URINE [[id number]] Collected: 04/25/19 1147 Order Status: Completed Specimen: Urine from Clean catch Updated: Special Requests : NO SPECIAL REQUESTS Culture result: NO GROWTH 1 DAY C. DIFFICILE (DNA) [[id number]] Order Status: Sent Specimen: Stool CULTURE, BLOOD [[id number]] Collected: 0 04/20/19 1440 Order Status: Completed Specimen: Blood Updated: 04/26/19 0818 Special Requests: NO SPECIAL REQUESTS Culture result: NO GROWTH 6 DAYS CULTURE , BLOOD [[id number]] Collected: 04/20/19 1447 Order Status: Completed Specimen: Bloo d Updated: 04/26/19 0818 Special Requests: NO SPECIAL REQUESTS Culture result: NO GROWTH 6 DAYS CULTURE, BLOOD [[id number]] (Abnormal) Collected: 04/19/19 1005 Ord er Status: Completed Specimen: Blood Updated: 04/22/19 0731 Special Request s: NO SPECIAL REQUESTS GRAM STAIN GRAM POSITIVE COCCI IN CLUSTERS ANAEROBIC BOT TLE CALLED TO AND READ BACK BY ROB LEDEZMA RN, ED, 0953 ON 04/20/19 TORMAIN IRAGLTHUY Culture result: STAPHYLOCOCCUS EPIDERMIDIS : Refer to previous culture( s) for susceptibilityresults CULTURE, BLOOD [[id number]] (Abnormal) (Susceptibility ) Collected: Order Status: Completed Specimen: Blood Updated: 12/02 0729 Special Requests: NO SPECIAL REQUESTS GRAM STAIN GRAM POSITIVE COCC I IN CLUSTERS ANAEROBIC BOTTLE CALLED TO AND READ BACK BY ROB LEDEZMA RN, ED, AT 0953 ON 04/20/19 TORISMIRAGLIA Culture result: STAPHYLOCOCCUS EPIDERMIDISXR Re sults (most recent):Results from Hospital Encounter encounter on 04/19/19XR GASTRO GRAFFIN UPPER GI Narrative History:J-tube placement.FINDINGS:A director of housing film of the a bdomen reveals a tube overlying the abdomen. The bowel gaspattern is nonspecific in n ature.After contrast was injected through the tube contrast appears to fill thejejunum . Therefore the tube appears to be in good position in the jejunum. Impression IMPR ESSION:Jejunostomy tube with its tip within the jejunum.CT Results (most recent):Res ults from Hospital Encounter encounter on 04/19/19CT CHEST ABD PELV WO CONT Narrat britni Referring Physician: MILI HILLSPatient Name: EVELIO MALAVE REPORT FROM IMAGING ON [facility]: CT chest without contrast and CT abdomen pelvis w ithoutcontrastDATE OF EXAM: 2019-04-20 20:52:12IMAGES: 681HISTORY: reduced del th sounds right lung, LLQ tendernessComparison: 03/14/19 and 9FINDINGS: Axial images of the chest, abdomen and pelvis areobtained without iv contra st.Chest: Mediastinal assessment is limited without contrast. Imagequality limited b y artifacts. Patchy lung opacities right greaterthan left similar to prior. Small pleural effusions. Vascularincluding coronary calcifications. Mediastinum kanika ears shifted tothe right. Left hemidiaphragm is elevated.Abdomen and pelvis: Nonspeci fic bowel pattern, with post surgicalchanges on the left. No definite free air. Organ assessmentlimited without iv contrast. No significant free fluid or freeair.No bow el obstruction or abscess seen. Catheter and air in thebladder which is not well asse ssed. Left hip hardware partiallyseen with old fracture deformity. G-J tube is pres ent. Ventralhernia right of midline at abdominal wall with multiple smallbowel loops without obstructive pattern. Mild right muscleswelling with possible hematoma an d calcification at right groinimage 117/120. Degenerative bony changes. Multiple like ly chroniccompression deformities at thoracic and lumbar spine. BilateralL5-S1 spondyl olysis and anterolisthesis. Impression IMPRESSION: Right greater than left lung infiltrates and effusions.No bowel obstruction. 2 cm hyperdensity at a macrina l loop in leftpelvis image 90/120, possibly ingested material, or a tubefragment or post surgical change.Ventral abdominal hernia seen.See above.One or more of the follow ing dose reduction techniques were used:automated exposure control, adjustm ent of the mA and/or kVaccording to patient size, use of iterative reconstructivetec hnique.THIS DOCUMENT HAS BEEN ELECTRONICALLY SIGNEDFrsofia Edge MD04/20/2019 22:43 EST M.D. Please call [facility] [employer] Consultant [phone]) withquestions.T his report was electronically signed by:Marcie Edge MD 04/20/2019 10:44 PMImages:@IMAG ESENCORD@ HELP TEXTThis SmartLink requires a parameter for processing. Parameters are variableswhich can be added to the original SmartLink name. This allows you to reque stspecific information by giving the SmartLink precise direction.The BSHSILAS TIMGCAT SmartLink accepts (as a parameter) an external procedure IDor an anatomical re gion. Typically, this external ID would be the CPT code.You can also request the nu mber of procedures to be displayed by this SmartLink.To indicate the number, type t he procedure ID or anatomical regions followed bya colon and then the number o f procedures. To display all occurences for thatparticular procedure ID/anatomical r egions, type an asterisk in place of thenumber. To obtain only the last occur ence, type the procedure ID/anatomicalregions without the colon, number, or asterisk.T his SmartLink can display other procedures in the same procedure category if aparamete r is set.The SmartLink will display the last x cases of the procedure or anatomicalre gions you entered.Example: .BSHSILASTIMGCAT[[id number]:3This example wo uld display results for the last three orders with an externalprocedure ID of [id number].T he patient is: [] acutely ill Risk of deterioration: [] moderate [x] criticall y ill [x] highActive Problems: Pneumonia (11/08/2018) Acute hypoxemic respiratory failure (HCC) (03/25/2019) COPD with acute exacerbation (HCC) (04/19/2019) Acute on chronic respiratory failure with hypoxia and hypercapnia (HCC)(04/19/2019) Scrotal torsten h (04/21/2019)IMPRESSION: ACUTE HYPERCAPNIC AND HYPOXIC RESPIRATORY FAILURE DUE TO SEVERE COPD/ PNEUMONIA R ML , R L L 1. ATELECTASIS L L L RESOLVED WITH INTU BATION2. R/ OM ATELECTASIS RT LUNG - STAT CHEST XRAY3. PLEURAL EFFUSION RT AN LT - SMALL4. SEVERE COPD 5. SEVERE METABOLIC ENCEPHALOPATHY IMPROVED 6. SEVERE MENTAL RETARDATION7. SEIZURE VS TREMORS ON LAMICTAL SEEN BY DR SCHNEIDER 8. PNEUMONIA - G N R , I D PENDING9. SEPSIS L A = 2.5 QRAUVBYON42. BACTER EMIA G + COCCI - STAPH EPIDERMITIS 11. SEVERE MAL NUTRITION ,12. ALB = 1.4 SEVERE HYPOALBUMINEMIA 13. J TUBE OVER PEG WORKING PER DR MOTLEY Plan: 1 HE APPEARS MUCH WORSENED TODAY , HE IS UNABLE TO CLEAR SECRETIONS ,HE WILL BENEFIT FROM TRACHEOSTOMY FOR PULMONARY TOILET1. DUO NEB Q 4 H2. M UCOMYST 10 % VIA MINI NEB Q 8 H3. LASIX 20 MG I V P B I D PER RENAL - DR AAMIR RYAN 4. DISCUSSED WITH RN ON BED SIDE 5 CONT MEROPENEM AND VANCOMYCIN [address] MOTLEY7 PROSTAT FOR SEVERE HYPOALBUMINEMI 8 , I V SOLUMEDROL FOR COPD 9 MUCOMYST TO LOOSEN TRACHEOBRONCHIAL SECTERTIONS CHEST P T TO MOBILIZE SECRETIONS 8 CONT CHEST P T [address] CACERES H C P NEED FOR TRACHEOSTOMYHE AGREES FOR IT AND STATED HE SHOULD NELSON VE TRACHEOSTOMY AT THE SAME TIMEWHEN SURGICAL J - TUBE IS DONE My assessm ent, plan of care, findings, medications, side effects etc werediscussed with:[x]n ursing []PT/OT[x]respiratory therapy [][x]family DR CACERES [facility] []Critical Care Provided 60 minutes non procedure based.Krystian Monae MD FGualbertoC GualbertoCGualbertoP. Name Value Range Interpretation Code Description Data Harriett rce(s) Supporting Document(s ) ID Date Data Source [id number] 04/30/2019 10:31:43 AM EST [facility] GI PROGRESS NOTENAME: Evelio Shukla hbeinDOB: 1950MRN: [id number]:Tolerating TF via J-po rt at 35 cc per hrObjective:abd softVITALS:Last 24hrs VS reviewed since prior progress note. Most recent are:Visit VitalsBP 133/82Pulse 89Temp 98.7 F (37. 1 C)Resp (!) 31Ht 5' 2" (1.575 m)Wt 61.1 kg (134 lb 11.2 oz)SpO2 91%BMI 24.64 kg/m I ntake/Output Summary (Last 24 hours) at 04/30/2019 1030Last data filed at 04/30/19 20 0909Gross per 24 hourIntake 425 mlOutput 2150 mlNet -1725 mlPHYSICAL EXAM:General : Alert, in no acute distressHEENT: Anicteric sclerae.Lungs: CTA Bilaterall y.Heart: Regular rhythm,Abdomen: Soft, Non distended, Non tender. (+)Bowel sounds, no HSMExtremities: No c/c/eNeurologic: CN 2-12 gi, Alert No acute neurological di stressPsych: No insight. Not anxious nor agitated.Lab Data Reviewed:Recent Labs 04/29/200545WBC 13.0* 12.8*HGB 9.6* 9.7*HCT 30.9* 30.8*PLT 581* 557*Rec ent Labs 04/29/200504/29/200245NA 144 -- 138K 3.7 -- 4. 1CL 108* -- 106CO2 32 32* 25BUN 45* -- 41*CREA 1.96* -- 2.00*GLU 121* -- 96 PHOS 3.8 -- 4.0CA 9.6 -- 9.8Recent Labs 04/29/200204/28/200229SG OT -- -- 9*AP -- -- 63TP -- -- 5.4*ALB 1.9* 1.8* 1.5*GLOB -- -- 3.9 Patie nt Active Problem ListDiagnosis Code Parae sophageal hiatal hernia K44.9 COPD (chronic obstructive pulmonary disease) ([facility]) J44 .9 Acute respiratory distress R06.03 Pneumonia J18.9 COPD exacerbation ([facility]) J44.1 Sepsis due to undetermined organism ([facility]) A41.9 Generalized anxiety disorde r F41.1 Acute respiratory failure with hypoxia ([facility]) J96.01 Pneumonia involvin g right lung J18.9 Hyponatremia E87.1 SOB (shortness of breath) R06.02 Pressure i njury of right heel, stage [address]) L89.612 Leg wound, right, initial encounter S81. 801A Acute hypoxemic respiratory failure (HCC) J96.01 COPD with acute exacerbati on ([facility]) J44.1 Acute on chronic respiratory failure with hypoxia and hypercapnia (HC C)J96.21, J96.22 Scrotal rash Z85Qetnqpscnl: Dysfunctional J-tube over PEG - now wor wanda okPlan: Please recall GI as needed. Use center port for TF only and give Rx via sideports.Signed By: Diogo Collins MD 04/30/2019 10:30 AM Name Value Range Interpretation Code Description Data Harriett rce(s) Supporting Document(s ) ID Date Data Source [id number] 04/30/2019 07:39:38 AM EST [facility] Bedside and Verbal shift change report carol Wills RN (oncoming nurse) Gerardo PITTS (offgoing nurse). Report included the fo llowing information SBAR,Kardex, ED Summary, Intake/Output, MAR, Recent Results and C ardiac Rhythm NSR. Name Value Range Interpretation Code Description Data Harriett rce(s) Supporting Document(s ) ID Date Data Source [id number] 04/30/2019 06:09:22 AM EST [facility] ID Progress Note04/30/2019Subjective:Pt e xtubatedC. Diff test was NEGATIVEEEG did not show any seizureAfebrileBlood cx remain negativeResp cx with pseudomonasObjective:Review of SystemsPa tient is unable to provideVitals:Patient Vitals for the past 24 hrs: BP Temp Puls e Resp SpO2 Dbhklm69/16/20 0402 - 97.8 F (36.6 C) - - - -04/30/19 0400 142/86 - 94 22 95 % -04/30/19 0300 (!) 132/94 - 91 27 96 % -04/30/19 0200 150/83 - 89 30 96 % -04/30/19 0100 101/71 - 94 29 95 % -04/30/19 0000 152/88 - (!) 103 22 91 % -04/29/19 2332 - 98.5 F (36.9 C) - - - -04/29/19 2300 159/90 - 99 29 90 % -04/29/19 2200 164/9 0 - (!) 105 28 91 % -04/29/199 - - - - 93 % -04/29/198 - - - - 93 % -04/29/19 2100 (!) 151/94 - 97 (!) 31 94 % -04/29/19 2000 154/85 98.3 F (36.8 C) 96 26 96 % -04/29/19 1900 161/87 - 100 24 95 % -04/29/19 1800 (!) 154/107 - 88 26 96 % -04/29/19 1700 144/72 - 88 30 (!) 89 % 62.9 kg (138 lb 10.7 oz)04/29/19 1600 147/77 98.2 F (36.8 C) 91 29 95 % -04/29/19 1500 139/76 - 95 24 92 % -04/29/19 1400 (!) 1 37/102 - (!) 102 (!) 33 92 % -04/29/19 1300 161/87 - 85 28 95 % -04/29/19 1200 (!) 1 63/127 97.8 F (36.6 C) 86 24 94 % -04/29/19 1100 156/83 - 89 (!) 34 93 % -04/29/19 1 000 (!) 176/110 - 96 (!) 33 (!) 89 % -04/29/19 0900 (!) 138/102 - 94 (!) 35 9 5 % -04/29/19 0800 140/77 98 F (36.7 C) 95 (!) 33 (!) 88 % -04/29/19 0700 150/84 - 94 18 94 % -Tmax: Temp (24hrs), Av.1 F (36.7 C), Min:97.8 F (36.6 C), Max:98 .5 F(36.9 C)Physical Exam:General: Lethargic on BiPAP,no distressEyes: Con junctivae/corneas clear. PERRLNeck: Supple, symmetrical, trachea midline, no adenopa thyLungs: bilateral breath sounds with basal crackles..Heart: Regular rate and rhythm, S1, S2 normal, no murmurAbdomen: Soft, non-tender. Bowel sounds normal. N o masses, Noorganomegaly.peg+Back: Symmetric, no curvature. ROM normal. No CVA tenderness.Extremities: No cyanosis ,chronic lymphedema .Pulses: 2+ and symm etric all extremities.Skin: Skin color, texture, turgor normal. No rashes or les ionsLymph nodes: Cervical, supraclavicular, and axillary nodes normal.Current Facili ty-Administered MedicationsMedication Dose Route Frequency vits A and D-white pet- lanolin (A&D) ointment Topical PRN furosemide (LASIX) injection 20 mg 20 m g IntraVENous BID methylPREDNISolone (PF) (SOLU-MEDROL) injection 40 mg 40 mg Int raVENous Q12H bacitracin 500 unit/gram packet 1 Packet 1 Packet Topical TID v ancomycin 50 mg/mL oral solution (compounded) 125 mg 125 mg Per G Tube Q6H meropenem (MERREM) 500 mg in 0.9% sodium chloride (MBP/ADV) 50 mL MBP 0.5 gIntraVENous Q1 2H lamoTRIgine (LaMICtal) tablet 100 mg 100 mg Per G Tube QPM LORazepam (ATIVAN) ta blet 1 mg 1 mg Per G Tube QHS lamoTRIgine (LaMICtal) tablet 50 mg 50 mg Per G Tub e DAILY sodium chloride (NS) flush 5-40 mL 5-40 mL IntraVENous PRN pantoprazole (P ROTONIX) 40 mg in 0.9% sodium chloride 10 mL injection 40 mgIntraVENous DAILY aceta minophen (TYLENOL) tablet 650 mg 650 mg Oral Q6H PRN ondansetron (ZOFRAN) injection 4 mg 4 mg IntraVENous Q6H PRN magnesium hydroxide (MILK OF MAGNESIA) 400 mg/5 mL oral suspension 30 mL 30mL Oral DAILY PRN albuterol-ipratropium (DUO-NEB) 2.5 MG-0 .5 MG/3 ML 3 mL Nebulization Q6HWA RT acetylcysteine (MUCOMYST) 100 mg/mL (10 %) nebulizer solution 400 mg 4 mLInhalation TID RT miconazole (MICOTIN) 2 % cream Topical BID budesonide (PULMICORT) 500 mcg/2 ml nebulizer suspension 500 mcg N ebulizationBID RT cinacalcet (SENSIPAR) tablet 60 mg 60 mg Oral DAILY heparin (porcine) injection 5,000 Units 5,000 Units SubCUTAneous R86CDaag:Recent Labs 04/29/200504/28/200229WBC 13.0* 12.8* -- 11.1*HG B 9.6* 9.7* -- 8.8*PLT 581* 557* -- 524*BUN 45* -- 41* 35*CREA 1.96* -- 2.00* 1.98*SGOT -- -- -- 9*AP -- -- -- 63TBILI -- -- -- 0.2Cultures: Lab ResultsComponent Value Date/Time Culture result: MODERATE PSEUDOMONAS AERUGINOSA (A) 04/26/2019 05:00 PM Culture result: NO GROWTH 4 DAYS 04/25/2019 12:10 PM Cultur e result: NO GROWTH 4 DAYS 04/25/2019 12:05 PMRadiology:Xr Gastrograffin Upper GiRes ult Date: 04/29/2019History: J-tube placement. FINDINGS: A director of housing film of the abdomen re veals a tubeoverlying the abdomen. The bowel gas pattern is nonspecific in nature. Af tercontrast was injected through the tube contrast appears to fill the jejunum.The refore the tube appears to be in good position in the jejunum.IMPRESSION: Jeju nostomy tube with its tip within the jejunum.Assessment: Staph sepsis. Aspi ration pneumonia (pseudomonas) Acute COPD exacerbation. Acute respiratory failure . Pleural effusion. Dysphagia Fever R/o C. difficile Plan:1. Continue meropenem2 . Continue oral vancomycin prophylaxis dose3. Follow blood cxMahlet MD [facility]Taylor [facility] [id number] AM Name Value Range Interpretation Code Description Data Harriett rce(s) Supporting Document(s ) ID Date Data Source [id number] 04/30/2019 05:55:10 AM EST [facility] Name Value Range Interpretation Description Data Sup porting Code Source(s) Document(s ) Magnesium 2.6 mg/dL 1.6-2.6 [facility] - Good [Mass/volume] Tao[facility] in Serum or Hospital Plasma ID Date Data Source [id number] 04/30/2019 05:55:10 AM EST [facility] Name Value Range Interpretation Description Data Sup porting Code Source(s) Document(s ) Sodium 144 136-145 [facility] - Good [Moles/volume] mmol/L [facility] in Serum or Hospital Plasma Potassium 3.7 3.5-5.1 [facility] - Good [Moles/volume] mmol/L [facility] in Serum or Hospital Plasma Chloride 108 98-107 Above high normal [facility] - Good [Moles/volume] mmol/L [facility] in Serum or Hospital Plasma Carbon 32 21-32 [facility] - Good dioxide, total mmol/L Taoist [Moles/volume] Hospital in Serum or Plasma Anion gap in 8 mmol/L 10-20 Below low normal [facility] - Go od Serum or [facility]ist Plasma Hospital Glucose 121 74-106 Above high normal [facility] - Good [Mass/volume] mg/dL [facility] in Serum or Hospital Plasma Urea nitrogen 45 mg/dL 7-18 Above high normal [facility] - Good [Mass/volume] [facility] in Serum or Hospital Plasma Creatinine 1.96 0.70-1.3 Above high normal [facility] - Goo d [Mass/volume] mg/dL 0 [facility] in Serum or Hospital Plasma Glomerular 44 >60 Below low normal [facility] - Good filtration ml/min/1 Taoist rate/1.73 sq M .73m2 Hospital predicted among blacks [Volume Rate/Area] in Serum or Plasma by Creatinine-bas ed formula (MDRD) Glomerular 36 >60 Below low normal [facility] - Good filtration ml/min/1 Taoist rate/1.73 sq M .73m2 Hospital predicted among non-blacks [Volume Rate/Area] in Serum or Plasma by Creatinine-bas ed formula (MDRD) Calcium 9.6 8.5-10.1 [facility] - Good [Mass/volume] mg/dL [facility] in Serum or Hospital Plasma Phosphate 3.8 2.5-4.9 [facility] - Good [Mass/volume] mg/dL [facility] in Serum or Hospital Plasma Albumin 1.9 g/dL 3.5-4.7 Below low normal [facility] - Good [Mass/volume] [facility] in Serum or Hospital Plasma by Bromocresol purple (BCP) dye binding method ID Date Data Source [id number] 04/30/2019 05:54:28 AM EST [facility] - [facility] Name Value Range Interpretation Description Data Sup porting Code Source(s) Document(s ) Leukocytes 13.0 4.8-10.6 Above high normal [facility] - [#/volume] in K/uL Good Blood by [facility]ist Automated count Hospital Erythrocytes 3.19 4.70-6.0 Below low normal [facility] - [#/volume] in M/uL 0 Good Blood by Taoist Automated count [facility] Hemoglobin 9.6 g/dL 14.0-18. Below low normal [facility] - [Mass/volume] in 0 Good Blood [facility] Hematocrit 30.9 % 42.0-52. Below low normal [facility] - [Volume 0 Good Fraction] of Taoist Blood by Hospital Automated count Erythrocyte mean 96.9 FL 81.0-94. Above high normal [facility] - corpuscular 0 Good volume [Entitic Taoist volume] by Hospital Automated count Erythrocyte mean 30.1 PG 27.0-35. [facility] - corpuscular 0 Good hemoglobin Taoist [Entitic mass] Hospital by Automated count Erythrocyte mean 31.1 30.7-37. [facility] - corpuscular g/dL 3 Good hemoglobin Taoist concentration [facility] [Mass/volume] by Automated count Erythrocyte 17.5 % 11.5-14. Above high normal [facility] - distribution 0 Good width [Ratio] by [facility] Automated count Hospital Platelets 581 K/uL 130-400 Above high normal [facility] - [#/volume] in [facility] Blood by Taoist Automated count Hospital Platelet mean 9.5 FL 9.2-11.8 [facility] - volume [Entitic Good volume] in Blood Taoist by Automated Hospital count Nucleated 0.0 PER 0 [facility] - erythrocytes/100 100 WBC Good leukocytes Taoist [Ratio] in Blood Hospital Nucleated 0.00 0.0-0.01 [facility] - erythrocytes K/uL Good [#/volume] in Taoist Blood Hospital ID Date Data Source [id number] 04/29/2019 07:45:50 PM EST [facility] Bedside and Verbal shift change report carol pham to Tessie PITTS (oncoming nurse) by NANCY Davis(offgoing nurse). Report given with SB AR, Kardex, Intake/Output, MAR and RecentResults. Name Value Range Interpretation Code Description Data Harriett rce(s) Supporting Document(s ) ID Date Data Source [id number] 04/29/2019 04:45:40 PM EST [facility] I spoke with patients HCP Sandro Ovalle ab out patients clinical condition,indication for feeding jejunostomy tube placement, his high risk profile due tohis poor functional status and medical co-morbidi ties.Patient's healthcare proxy understands the risk associated with generalanesthes ia and surgical intervention and would like to proceed [facility].We will schedule him for surgical jejunostomy tu be placement on 05/01/2019Continue current medical and pulmonary optimizationJerardo alexandre Name Value Range Interpretation Code Description Data Harriett rce(s) Supporting Document(s ) ID Date Data Source [id number] 04/29/2019 03:58:59 PM EST [facility] Surgery Progress NoteNAME: Evelio Abraham beinDOB: 1950MRN: [id number]:Was extubated yesterda yPneumonia appears to be improving as per pulmonaryHe has been on 40 % O2 now. Sandhya erating wellJ tube has been working now. He is being fed via J tubeSurgery on board for placement on J tube as I has had aspiration issues in thepast.He is hemod ynamically stable. 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 Pupils are equalBack : Symmetric, No CVA tenderness.Chest wall: No Accessory muscle use.Heart: Regular rate and rhythm, no murmur, rub or gallop.Abdomen: Soft, non-tender. Not distended. Midline incisional hernia. Leftupper abdominal G- J tube noted.Lab Data Reviewed:CBC w/Diff Recent Labs 04/28/200204/27/200320WB C 12.8* 11.1* 7.7HGB 9.7* 8.8* 9.6*HCT 30.8* 27.6* 30.0*MCV 96.9* 95.2* 95.2*PLT 557* 524* 542*GRANS -- 92* --LYMPH -- 6* --EOS -- 0 --Chemistry Recent Labs 0 04/29/200204/27/200320GLU -- 96 -- -- 149* 186*NA -- 138 -- -- 139 139K -- 4.1 -- -- 3.7 3.9CL -- 1 06 -- -- 107 106CO2 32* 25 30* < > 28 27BUN -- 41* -- -- 35* 35*CREA -- 2.00* -- -- 1.98* 2.29* < > = values in this interval not displayed. Recent Labs 04/28/200204/27/200320CA 9.8 9.2 9.1PHOS 4.0 -- 3.3ALB 1.8* 1.5 * 1.5*TBILI -- 0.2 --AP -- 63 --SGOT -- 9* --ALT -- 8* --Coagulation No results for input(s): PTP, INR, APTT, INREXT in the last 72hours.IMAGING RESULTS:Xr C hest Sngl VResult Date: 04/29/2019XR CHEST SNGL V CLINICAL INDICATION PROVIDED:. "p neumonia / c h f / pl ,effusion." TECHNIQUE.: 1 views, chest. COMPARISON:. 04/28/2019. FINDINGS:. Thepatient has been extubated in the interval. The pericardi al/cardiac silhouetteremains enlarged in the transverse dimension. There is mild pulm onary vascularcongestion, not appreciably changed in the interval. There is a smal l leftpleural effusion, similar in size to the previous study, with adjacent densit yin the left lower lung, which may represent atelectasis. There is nopneumothorax. Th ere is an abnormal right heart contour which may representatelectasis in the right mi ddle lobe. Follow-up radiographs are recommended.IMPRESSION:. Interval extuba tion. Mild congestive failure with small lefteffusion, not appreciably changed in the interval. Abnormal right pericardialcontour may represent atelect asis in the right middle lobe. Follow-upradiographs are recommended.Xr Gastrograffin Upper GiResult Date: 04/29/2019History: J-tube placement. FIND INGS: A director of housing film of the abdomen reveals a tubeoverlying the abdomen. The bowel gas pattern is nonspecific in nature. Aftercontrast was injected through the t ube contrast appears to fill the jejunum.Therefore the tube appears to be in good position in the jejunum.IMPRESSION: Jejunostomy tube with its tip within the jejunum.Assessment:68-year-old male with extensive past medical history who has h ad feedingjejunostomy placed 6 months ago. Postoperative course was complicated bys eepage of acetic fluid through the incision and led to ventral herniaformation. Surg james on board for Placement of jejunostomy tube placement to preventaspiration issu es.Plan:I tried to reach his HCP on [phone], went into voice mail.Will try again to speak with HCP to discuss his current clinical condition andhigh risk profile for surgery.Continue current care for nowThank you for allowing me to particip ate in this patients care and please callme on [phone] with questions and asher rnsSigned By: Kareen Mills MD 04/29/2019 3:53 PM Name Value Range Interpretation Code Description Data [facility](s) Supporting Document(s ) ID Date Data Source [id number] 04/29/2019 03:19:00 PM EST [facility] [address] Mills will speak to pt's norma jay regarding plan of care for surgery. Name Value Range Interpretation Code Description Data [facility] rce(s) Supporting Document(s ) ID Date Data Source [id number] 04/29/2019 02:30:02 PM [facility] Critical Care Progress N [facility]Krystian Monae MD., F.C.C.P.Stella Hamilton MD., F.C.C.P. [address] [place] [address] [place] [address] Name: Evelio JohnsoninDOB: 1950MRN: [id number]: 04/29/2019Subjective:Mr. Carlin is a 68 y.o. year old male who is being see n for ACUTE HYPOXICRESPIRATORY FAILURE , PATIENT IS NOW EXTUBATES + 24 HOURS A ND ISTOLERATING WELL , HE IS ON 40 % AEROSOL , ABG SHOW PH = 7.45, PCO2 = 44,PO2 =70 TORRS , HCO3 = 30 , P SO2 = 96 %MILD Metabolic Alkalosis And No rm oxemia With large A-a GRADIENT , CHEST XRAY SHOWS RESOLVING PNEUMONIA , LUNG VOLUMES ARE BETTER , SMALLBILATERAL PLEURAL EFFUSION . WBC = 12 . 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) Pneumoni a Psychiatric disorder schizophrenia Pulmonary emboli (HCC) Schizophrenia (H CC)Allergy:No Known AllergiesVital Signs:Patient Vitals for the past 24 hrs : BP Temp Pulse Resp WuA88604/29/19 1400 (!) 137/102 - (!) 102 (!) 33 92 %04/29/19 13 00 161/87 - 85 28 95 %04/29/19 1200 (!) 163/127 97.8 F (36.6 C) 86 24 94 %04/15 09/01 1100 156/83 - 89 (!) 34 93 %04/29/19 1000 (!) 176/110 - 96 (!) 33 (!) 89 % 0900 (!) 138/102 - 94 (!) 35 95 %04/29/19 0800 140/77 98 F (36.7 C) 95 (!) 33 (!) 88 %04/29/19 0700 150/84 - 94 18 94 %04/29/19 0600 147/84 - 97 29 90 % 0500 (!) 151/91 - (!) 101 22 94 %04/29/19 0400 (!) 147/91 97.8 F (36.6 C) (!) 102 22 93 %04/29/19 0300 142/77 - 96 30 95 %04/29/19 0200 144/83 - 93 29 95 % 04/29/19 0100 143/88 - 96 28 94 %04/29/19 0000 143/82 98.1 F (36.7 C) 97 29 91 % 04/28/19 2300 131/80 - 96 24 94 %04/28/19 2200 139/56 - (!) 107 15 (!) 85 % 0 2100 145/77 - 99 29 90 %04/28/19 2000 139/88 97.9 F (36.6 C) 99 30 96 %04/28 1800 141/82 - 84 27 98 %04/28/19 1700 122/60 - 88 25 96 %04/28/19 1618 - - 90 28 97 %04/28/19 1600 138/69 98.1 F (36.7 C) 80 19 95 %04/28/19 1500 131/47 - 73 16 9 8 %Pulse OX:SpO2 Readings from Last 6 Encounters:04/29/19 92%04/16/19 100%03/16 07/01 99%03/17/19 92%02/19/19 96%02/18/19 92%@LASTSAO2(6)@Intake/Output:Last shift : 04/29 700 - 04/29 1900In: 100 [I.V.:50]Out: -Last 3 shifts: 04/27 1900 - 04/29 0700In: 1539.3 [I.V.:1014.3]Out: 3200 [Urine:3100; Drains:100]Intake/Outp ut Summary (Last 24 hours) at 04/29/2019 1409Last data filed at 04/29/2019 1300Gro ss per 24 hourIntake 175 mlOutput 2800 mlNet -2625 mlHemodynamics:.@MAP.@CVPVentilato r Settings:Ventilator Mode: Pressure supportRespiratory RateInsp Time (sec): 1 secI:E Ratio: 1:2.3Ventilator VolumesVt Set (ml): 400 mlVt Exhaled (Machine Breath) (ml): 414 mlVt Spont (ml): 399 mlVe Observed (l/min): 9.4 l/minVentilator PressuresPr essure Support (cm H2O): 10 cm H2OPIP Observed (cm H2O): 16 cm H2OMAP (cm H2O) : 8PEEP/VENT (cm H2O): 5 cm Y05Upbc PEEP Observed (cm H2O): 2.3 cm J6SOmrr Rate T idal Volume Pressure FiO2 PEEPPressure support 400 ml 10 cm H2O 40 % 5 cm H2 0Peak airway pressure: 16 cm H2IJtpksk ventilation: 9.4 l/minARDS network Guide lines: Lung protective strategy and Pl pressure goals N / Aless than or equal to 30Physical Exam:HE IS MORE AWAKE AND COMFORTABLE , RR = 22 / MT , FEEBLE WEA K, CONTRACTED PATIENT HAVE SEVERE MENTAL RETARDATION . General: Alert, co operative, MILD RESPIRATORY distress, appearsstated age. Head: No rmocephalic, without obvious abnormality, atraumatic. Eyes: Conjuncti vae/corneas clear. PERRL, EOMs intact. Nose: Nares normal. No drainage or sinus tenderness Throat: Lips, mucosa, and tongue normal Nec k: Supple, symmetrical, trachea midline, no adenopathy,thyroid: no enlargem ent/tenderness/nodules, no carotid bruit and no JVD. Lungs: WHEEZING ARE LESS ,RALES DECREASED R L AND L L L, AIREXCHANGE IS MAINTAINED to ausculta tion bilaterally. Chest Wall: No tenderness or deformity. Heart : Regular rate and rhythm, S1, S2 normal, no murmur, click,rub or NO gallop. Abdomen: Soft, non-tender. Bowel sounds normal. No masses, No organomegaly. Ex tremities: CONTRACTED Extremities normal, atraumatic, no cyanosis oredema. Pulses: 4+ bilaterally Skin: Skin color, texture, turgor normal. No r ashes or lesions. Neurologic: NON VERBAL ,MENTALLY RETARDED .CNII-XII intact. No focal motoror sensory deficit.DATA:Current Facility-Administered MedicationsMedicat ion Dose Route Frequency vits A and D-white pet-lanolin (A&D) ointment Topical PRN furosemide (LASIX) injection 20 mg 20 mg IntraVENous BID methylPREDNISolone (PF) (SOLU-MEDROL) injection 40 mg 40 mg IntraVENous Q12H bacitracin 500 unit/gr am packet 1 Packet 1 Packet Topical TID vancomycin 50 mg/mL oral solution (compo unded) 125 mg 125 mg Per G Tube Q6H meropenem (MERREM) 500 mg in 0.9% sodium chloride (MBP/ADV) 50 mL MBP 0.5 gIntraVENous Q12H lamoTRIgine (LaMICtal ) tablet 100 mg 100 mg Per G Tube QPM LORazepam (ATIVAN) tablet 1 mg 1 mg Per G Tube QHS lamoTRIgine (LaMICtal) tablet 50 mg 50 mg Per G Tube DAILY sodium chlor wade (NS) flush 5-40 mL 5-40 mL IntraVENous PRN pantoprazole (PROTONIX) 40 mg in 0. 9% sodium chloride 10 mL injection 40 mgIntraVENous DAILY acetaminophen (TYLE NOL) tablet 650 mg 650 mg Oral Q6H PRN ondansetron (ZOFRAN) injection 4 mg 4 m g IntraVENous Q6H PRN magnesium hydroxide (MILK OF MAGNESIA) 400 mg/5 mL oral susp ension 30 mL 30mL Oral DAILY PRN albuterol-ipratropium (DUO-NEB) 2.5 MG-0 .5 MG/3 ML 3 mL Nebulization Q6HWA RT acetylcysteine (MUCOMYST) 100 mg/mL (10 %) nebulizer solution 400 mg 4 mLInhalation TID RT miconazole (MICOTIN) 2 % cream Topical BID budesonide (PULMICORT) 500 mcg/2 ml nebulizer suspension 500 mcg N ebulizationBID RT cinacalcet (SENSIPAR) tablet 60 mg 60 mg Oral DAILY heparin (porcine) injection 5,000 Units 5,000 Units SubCUTAneous N28CTyhpvwfrj: [x]Sinus []A -flutter []Paced []A-fib []Multiple PVC'sLabs:Recent Results (from the past 24 hour(s))BLOOD GAS, ARTERIAL Collection Time: 04/28/19 2:50 PMResult Value Ref Range pH 7.48 (H) 7.35 - 7.45 PCO2 39 32 - 48 mmHg PO2 98 83 - 108 mmHg CO2, TOTAL 30 (H) 19 - 24 mmol/L BICARBONATE 29 (H) 21 - 28 mmol/L O2 SAT 98 94 - 98 % BASE EXCESS 5 .2 (H) 0 - 3 mmol/L SITE LEFT RADIAL MIRANDA'S TEST POSITIVE DEVICE VENTILATOR FIO2 40. 0 % MODE Pressure Support PEEP/CPAP 5 PRESSURE SUPPORT 10 Performed by [id number] GNESIUM Collection Time: 04/29/19 3:45 AMResult Value Ref Range Magnesium 2.5 1 .6 - 2.6 mg/dLPHOSPHORUS Collection Time: 04/29/19 3:45 AMResult Value Ref Range Phosphorus 4.0 2.5 - 4.9 mg/dLMETABOLIC PANEL, BASIC Collection Time: 04/29/19 3:45 AMResult Value Ref Range Sodium 138 136 - 145 mmol/L Potassium 4.1 3.5 - 5.1 mmo l/L Chloride 106 98 - 107 mmol/L CO2 25 21 - 32 mmol/L Anion gap 11 10 - 20 mmol/L Gl ucose 96 74 - 106 mg/dL BUN 41 (H) 7 - 18 mg/dL Creatinine 2.00 (H) 0.70 - 1.30 mg /dL GFR est AA 43 (L) >60 ml/min/1.73m2 GFR est non-AA 35 (L) >60 ml/min/1.73m2 Calc ium 9.8 8.5 - 10.1 mg/dLALBUMIN Collection Time: 04/29/19 3:45 AMResult Value Ref Range Albumin 1.8 (L) 3.5 - 4.7 g/dLBLOOD GAS, ARTERIAL Collection Time: 04/29/19 6:11 AMResult Value Ref Range pH 7.45 7.35 - 7.45 PCO2 44 32 - 48 mmHg PO2 70 (L) 83 - 108 mmHg CO2, TOTAL 32 (H) 19 - 24 mmol/L BICARBONATE 31 (H) 21 - 28 mmol/L O2 SAT 96 94 - 98 % BASE EXCESS 5.8 (H) 0 - 3 mmol/L SITE RIGHT RADIAL MIRANDA'S TEST PO SITIVE DEVICE AEROSOL MASK O2 FLOW 8 L/min FIO2 40.0 % Performed by [id number] W/O DI FF Collection Time: 04/29/19 6:45 AMResult Value Ref Range WBC 12.8 (H) 4.8 - 10.6 K/uL RBC 3.18 (L) 4.70 - 6.00 M/uL HGB 9.7 (L) 14.0 - 18.0 g/dL HCT 30.8 (L) 42.0 - 52.0 % MCV 96.9 (H) 81.0 - 94.0 FL MCH 30.5 27.0 - 35.0 PG MCHC 31.5 30.7 - 37.3 g/d L RDW 17.4 (H) 11.5 - 14.0 % PLATELET 557 (H) 130 - 400 K/uL MPV 9.2 9.2 - 11.8 FL NRB C 0.0 0 PER 100 WBC ABSOLUTE NRBC 0.00 0.0 - 0.01 K/uLABG:Recent Labs 04/29/200511 0 04/28/201350 PH 7.45 7.48* 7.46*PCO2 44 39 39PO2 70* 98 111*HCO3 31 * 29* 28FIO2 40.0 40.0 40.0Recent Glucose Results:Lab ResultsComponent Value Date/ Time GLU 96 04/29/2019 03:45 AMCULTURES:All Micro Results Procedure Component Value Units Date/Time CULTURE, RESPIRATORY/SPUTUM/BRONCH W GRAM STAIN [ [id number]] (Abnormal)(Susceptibility) Collected: 04/26/19 1700 Order Status: Completed Specimen: Sputum from Tracheal Aspirate Updated:04/29/19 1051 Special Requests: NO SPECIAL REQUESTS GRAM STAIN 10-25 WBC/lpf <10 EPI/lpf FEW GRAM P OSITIVE RODS Culture result: MODERATE PSEUDOMONAS AERUGINOSA CULTURE, BLOOD [[id number]] Collected: 04/25/19 1205 Order Status: Completed Specimen: Blood Upda mikel: 04/29/19 0607 Special Requests: NO SPECIAL REQUESTS Culture result: NO HAIDER WTH 4 DAYS CULTURE, BLOOD [[id number]] Collected: 04/25/19 1210 Order Status: Completed Specimen: Blood Updated: 04/29/1907 Special Requests: NO SPEC IAL REQUESTS Culture result: NO GROWTH 4 DAYS C. DIFFICILE (DNA) [[id number]] Manuel ected: 04/27/19 0915 Order Status: Completed Specimen: Stool Updated: 1246 C. difficile (DNA) NEGATIVE Comment: This specimen is negative for t oxigenic C difficile by DNAamplification. Repeat testing is not recommended for co nfirmation, samplesreceived within 7 days of this negative result will be rejected. C . DIFFICILE (DNA) [[id number]] (Abnormal) Collected: 04/25/19 1715 Order Status: Completed Specimen: Stool Updated: 04/26/19 1551 C. difficile (DNA) TEST RESULT IS INCONCLUSIVE. PLEASE SUBMIT A NEW SPECIMEN FOR ANALYSIS. CULTURE, URINE [[id number]] Collected: 04/25/19 1147 Order Status: Completed Specimen: Urine from Clean catch Updated: Special Requests: NO SPECIAL REQUESTS Culture r esult: NO GROWTH 1 DAY C. DIFFICILE (DNA) [[id number]] Order Status: Sent Specimen : Stool CULTURE, BLOOD [[id number]] Collected: 04/20/19 1440 Order Status: Completed Specimen: Blood Updated: 04/26/19817 Special Requests: NO SPEC IAL REQUESTS Culture result: NO GROWTH 6 DAYS CULTURE, BLOOD [[id number]] Collecte d: 04/20/19 144 Order Status: Completed Specimen: Blood Updated: 04/26/19817 Special Requests: NO SPECIAL REQUESTS Culture result: NO GROWTH 6 DAYS CULTURE , BLOOD [[id number]] (Abnormal) Collected: 04/19/19 1005 Order Status: Completed S pecimen: Blood Updated: 04/22/19 0731 Special Requests: NO SPECIAL REQUESTS G ESCOBAR STAIN GRAM POSITIVE COCCI IN CLUSTERS ANAEROBIC BOTTLE CALLED TO AND READ MAIN K BY ROB LEDEZMA RN, ED, 0953 ON 04/20/19 TORISMIRAGLIA Culture result: S TAPHYLOCOCCUS EPIDERMIDIS : Refer to previous culture(s) for susceptibilityresults CUL RUPESH, BLOOD [[id number]] (Abnormal) (Susceptibility) Collected: 5 Order Status: Completed Specimen: Blood Updated: 04/22/19 0729 Special Request s: NO SPECIAL REQUESTS GRAM STAIN GRAM POSITIVE COCCI IN CLUSTERS ANAEROBIC BOT TLE CALLED TO AND READ BACK BY ROB LEDEZMA RN, ED, AT 0953 ON 04/20/19 TO RISMIRAGLIA Culture result: STAPHYLOCOCCUS EPIDERMIDISXR Results (most recent):Resu lts from Hospital Encounter encounter on 04/19/19XR GASTROGRAFFIN UPPER GI Narrat britni History:J-tube placement.FINDINGS:A director of housing film of the abdomen reveals a tube overl jung the abdomen. The bowel gaspattern is nonspecific in nature.After contrast was injected through the tube contrast appears to fill thejejunum. Therefore the tube a ppears to be in good position in the jejunum. Impression IMPRESSION:Jejunostomy tube w ith its tip within the jejunum.CT Results (most recent):Results from [facility] encounter on 04/19/19CT CHEST ABD PELV WO CONT Narrative Referring Physician: Eloisa HILLSPatient Name: EVELIO FISCHBEINFINAL REPORT FROM IMAGING ON [place] L[place]: CT chest without contrast and CT abdomen pelvis withoutcontrastDATE OF EX AM: 2019-04-20 20:52:12IMAGES: 681HISTORY: reduced breath sounds right lung, LLQ te ndernessComparison: 03/14/19 and 12/21/18FINDINGS: Axial images of the ches t, abdomen and pelvis areobtained without iv contrast.Chest: Mediastinal assessment i s limited without contrast. Imagequality limited by artifacts. Patchy lung opacit ies right greaterthan left similar to prior. Small pleural effusions. Vascularincludi ng coronary calcifications. Mediastinum appears shifted tothe right. Left hemidi aphragm is elevated.Abdomen and pelvis: Nonspecific bowel pattern, with post nena gicalchanges on the left. No definite free air. Organ assessmentlimited without iv contrast. No significant free fluid or freeair.No bowel obstruction or abscess seen. Catheter and air in thebladder which is not well assessed. Left hip hardware par tiallyseen with old fracture deformity. G-J tube is present. Ventralhernia right of midline at abdominal wall with multiple smallbowel loops without obstructive pat tern. Mild right muscleswelling with possible hematoma and calcification at right groi nimage 117/120. Degenerative bony changes. Multiple likely chroniccompression defor mities at thoracic and lumbar spine. BilateralL5-S1 spondylolysis and anterol isthesis. Impression IMPRESSION: Right greater than left lung infiltrates and e ffusions.No bowel obstruction. 2 cm hyperdensity at a bowel loop in leftpelv is image 90/120, possibly ingested material, or a tubefragment or post surgical singleton e.Ventral abdominal hernia seen.See above.One or more of the following dose reduction techniques were used:automated exposure control, adjustment of the mA and/or kVa ccording to patient size, use of iterative reconstructivetechnique.THIS DOCUMENT NELSON S BEEN ELECTRONICALLY SIGNEDFrank MD Fredi04/20/2019 22:43 ESTM.D. Please call [employer] Consultant [phone] ([phone]) withquestions.This report was electronic ally signed by:Marcie Edge MD 04/20/2019 10:44 PMImages:[email or web address] TEXTTh is SmartLink requires a parameter for processing. Parameters are variableswhic h can be added to the original SmartLink name. This allows you to requestspecific information by giving the SmartLink precise direction.The BSHSILASTIMGCAT SmartLink accepts (as a parameter) an external procedure IDor an anatomical region. Typ ically, this external ID would be the CPT code.You can also request the number of procedures to be displayed by this SmartLink.To indicate the number, type t he procedure ID or anatomical regions followed bya colon and then the number o f procedures. To display all occurences for thatparticular procedure ID/anatomical r egions, type an asterisk in place of thenumber. To obtain only the last occur ence, type the procedure ID/anatomicalregions without the colon, number, or asterisk.T his SmartLink can display other procedures in the same procedure category if aparamete r is set.The SmartLink will display the last x cases of the procedure or anatomicalre gions you entered.Example: .BSHSILASTIMGCAT[[id number]:3This example wo uld display results for the last three orders with an externalprocedure ID of [id number].T he patient is: [] acutely ill Risk of deterioration: [x] moderate [x] critical ly ill [] highActive Problems: Pneumonia (11/08/2018) Acute hypoxemic respiratory failure (HCC) (03/25/2019) COPD with acute exacerbation (HCC) (04/19/2019) Acute on chronic respiratory failure with hypoxia and hypercapnia (HCC)(04/19/2019) Scrotal torsten h (04/21/2019)IMPRESSION:1 ACUTE HYPERCAPNIC AND HYPOXIC RESPIRATORY FA ILURE DUE TO SEVERE COPD/ PNEUMONIA R ML , R L L 1. ATELECTASIS L L L RESOLVED WITH INTUBATION2. PLEURAL EFFUSION RT AN LT - SMALL3. SEVERE COPD 4. ELIU RE METABOLIC ENCEPHALOPATHY IMPROVED5. SEVERE MENTAL RETARDATION6. SEIZURE VS TREMORS ON LAMICTAL SEEN BY DR SCHNEIDER 7. PNEUMONIA - G N R , I D PENDING8. SEPSIS L A = 2.5 RESOLVING9. BACTEREMIA G + COCCI - STAPH EPIDERMITIS 10. SEV ERE MAL NUTRITION ,11. 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 J TUBE OVER PEG WORKING PER DR MOTLEY Plan: 1 HE APPEARS IMPROVED WILL TRY PRESSURE SUPPORT FOR WEANING , CHECKABG ON P S IF ADEQUATE TRIAL OF EXTUBATION1. DU O NEB Q 4 H2. MUCOMYST 10 % VIA MINI NEB Q 8 H3. LASIX 20 MG I V P B I D P ER RENAL - DR FRANKEL 4. DISCUSSED WITH RN ON BED SIDE 5 CONT MEROPENEM AND VANCOMYCIN [address] MOTLEY7 PROSTAT FOR SEVERE HYPOAL BUMINEMIA8 AT THIS TIME HE APPEARS IMPROVED - NO NEED FOR TRACHEOSTOMY AT T HISTIME 6. , I V SOLUMEDROL FOR COPD7. MUCOMYST TO LOOSEN TRACHEOBRON CHIAL SECTERTIONS CHEST P T TO MOBILIZE SECRETIONS8 CONT CHEST P T IF STAB LE BY AM ,THEN TRANSFER T O REGULAR FLOOR IN AM My assessment, plan of care, fin dings, medications, side effects etc werediscussed with:[x]nursing []PT/OT[x] respiratory therapy []Dr.[]family []Critical Care Provided 50 minutes non procedu re based.Krystian Monae MD F.C.C.P. Name Value Range Interpretation Code Description Data Harriett rce(s) Supporting Document(s ) ID Date Data Source [id number] 04/29/2019 10:59:01 AM EST [facility] GI PROGRESS NOTENAME: Evelio Shukla hbeinDOB: 1950MRN: [id number]:J-tube over PEG workin g at this time. Tube study shows properly placed injejunum.There was discussion ab out having pt transfereed to [facility] for surgical J-tubeplacement but not urgent at this t jose alejandro.Objective:abd soft sandhya TF at 25cc per hr.VITALS:Last 24hrs VS reviewed since p rior progress note. Most recent are:Visit VitalsBP 140/77Pulse 95Temp 98 F (36.7 C)Resp (!) 33Ht 5' 2" (1.575 m)Wt 65 kg (143 lb 4.8 oz)SpO2 (!) 88%BMI 26.21 kg/m Int radhames/Output Summary (Last 24 hours) at 04/29/2019 1052Last data filed at 04/29/19 20 0948Gross per 24 hourIntake 225 mlOutput 2800 mlNet -2575 mlPHYSICAL EXAM:General : Alert, in no acute distressHEENT: Anicteric sclerae.Lungs: CTA Bilaterall y.Heart: Regular rhythm,Abdomen: Soft, Non distended, Non tender. (+)Bowel sounds, no HSMExtremities: No c/c/eNeurologic: CN 2-12 gi, No acute neurological distressP sych: No insight. Not anxious nor agitated.Lab Data Reviewed:Recent Labs 04/28/2002WBC 12.8* 11.1*HGB 9.7* 8.8*HCT 30.8* 27.6*PLT 557* 524*Rec ent Labs 04/29/200204/27/200320NA -- 138 -- 139 139K -- 4.1 -- 3.7 3.9CL -- 106 -- 107 106CO2 32* 25 < > 28 27BUN -- 41* -- 35* 35*CREA -- 2.00* -- 1.98* 2.29*GLU -- 96 -- 149* 186*PHOS -- 4.0 -- -- 3.3CA -- 9.8 -- 9.2 9.1 < > = values in this interval not displaye d.Recent Labs 04/28/2002SGOT -- 9*AP -- 63TP -- 5.4*ALB 1.8* 1.5 *GLOB -- 3.9 Patie nt Active Problem ListDiagnosis Code Parae sophageal hiatal hernia K44.9 COPD (chronic obstructive pulmonary disease) ([facility]) J44 .9 Acute respiratory distress R06.03 Pneumonia J18.9 COPD exacerbation ([facility]) J44.1 Sepsis due to undetermined organism ([facility]) A41.9 Generalized anxiety disorde r F41.1 Acute respiratory failure with hypoxia ([facility]) J96.01 Pneumonia involvin g right lung J18.9 Hyponatremia E87.1 SOB (shortness of breath) R06.02 Pressure i njury of right heel, stage [address]) L89.612 Leg wound, right, initial encounter S81. 801A Acute hypoxemic respiratory failure (HCC) J96.01 COPD with acute exacerbati on ([facility]) J44.1 Acute on chronic respiratory failure with hypoxia and hypercapnia ([facility] C)J96.21, J96.22 Scrotal rash J06Gvfxbhyzgf: Dysfunctional J-tube over PEG. Seems t o be working now.Plan: Increase TF rate Only use J-tube portion for TF as will c log if Rx given in this narrow tube.Best to give Rx via side port directly into the stomach. Notified nurse andwrote order. In all likelihood, J-tube will fail again at some point, When that occurswould then suggest surgical placement of J-tube rat her than trying to rescuecurrent arrangement.Signed By: Diogo Collins MD 10:52 AM Name Value Range Interpretation Code Description Data [facility](s) Supporting Document(s ) ID Date Data Source [id number] 04/29/2019 10:38:54 AM [facility] History: J-tube placement.FINDINGS:A sco ut film of the abdomen reveals a tube overlying the abdomen. The bowel gaspatt sami is nonspecific in nature.After contrast was injected through the tube contrast a ppears to fill thejejunum. Therefore the tube appears to be in good position in the je junum.IMPRESSION:Jejunostomy tube with its tip within the jejunum. Signing date/patria e: 04/29/2019 10:38 AMSigned by: SAMIR RENTERIA Name Value Range Interpretation Code Description Data Harriett rce(s) Supporting Document(s ) ID Date Data Source [id number] 04/29/2019 10:35:13 AM [facility] XR CHEST SNGL VCLINICAL INDICATION PROVI DED:. "pneumonia / c h f / pl , effusion."TECHNIQUE.: 1 views, chest.COM PARISON:. 04/28/2019.FINDINGS:. The patient has been extubated in the interval.The p ericardial/cardiac silhouette remains enlarged in the transverse dimension.The re is mild pulmonary vascular congestion, not appreciably changed in theinterval. Ther e is a small left pleural effusion, similar in size to theprevious study, with adjac ent density in the left lower lung, which mayrepresent atelectasis.There is no pne umothorax.There is an abnormal right heart contour which may represent atelectasis in theright middle lobe. Follow-up radiographs are recommended.IMPRESSION:. Interval extubation. Mild congestive failure with small left effusion, notappreciably changed in the interval. Abnormal right pericardial contour mayrepresent atelect asis in the right middle lobe. Follow-up radiographs arerecommended. Signing date /time: 04/29/2019 10:35 AMSigned by: ELIZABETH FARR Name Value Range Interpretation Code Description Data Harriett rce(s) Supporting Document(s ) ID Date Data Source [id number] 04/29/2019 10:03:06 AM [facility] ID Progress Note04/29/2019Subjective:Pt e xtubatedC. Diff test was NEGATIVEEEG did not show any seizureAfebrileBlood cx remain negativeResp cx with moderate GNR'sObjective:Review of SystemsPatient is unable to provideVitals:Patient Vitals for the past 24 hrs: BP Temp Pulse Resp SpO2 Tpymji53/15/20 0800 140/77 98 F (36.7 C) 95 (!) 33 (!) 88 % -04/29/19 0700 150/84 - 94 18 94 % -04/29/19 0600 147/84 - 97 29 90 % -04/29/19 0500 (!) 151/91 - (!) 101 22 94 % -04/29/19 0400 (!) 147/91 97.8 F (36.6 C) (!) 102 22 93 % -04/29/19 0300 142/77 - 96 30 95 % -04/29/19 0200 144/83 - 93 29 95 % -04/29/19 0100 143/88 - 96 28 94 % -04/29/19 0000 143/82 98.1 F (36.7 C) 97 29 91 % -04/28/19 2300 131/80 - 96 24 94 % -04/28/19 2200 139/56 - (!) 107 15 (!) 85 % -04/28/19 2100 145/77 - 99 29 90 % -04/28/19 2000 139/88 97.9 F (36.6 C) 99 30 96 % -04/28/19 1800 141/82 - 84 27 98 % -04/28/19 1700 122/60 - 88 25 96 % -04/28/19 1618 - - 90 28 97 % -04/28/19 1600 138/6 9 98.1 F (36.7 C) 80 19 95 % -04/28/19 1500 131/47 - 73 16 98 % -04/28/19 1400 135/7 5 - 85 24 97 % -04/28/19 1303 - - 80 23 98 % -04/28/19 1300 150/76 - 81 27 93 % 65 kg (143 lb 4.8 oz)04/28/19 1200 (!) 158/103 97.5 F (36.4 C) 80 23 100 % -04/28/19 1152 - - 70 18 99 % -04/28/19 1100 137/70 - 68 18 94 % -04/28/19 1000 139/74 - 81 20 94 % -Tmax: Temp (24hrs), Av.9 F (36.6 C), Min:97.5 F (36.4 C), Max:98.1 F( 36.7 C)Physical Exam:General: Lethargic on BiPAP,no distressEyes: Conjunctivae/cor neas clear. PERRLNeck: Supple, symmetrical, trachea midline, no adenopathyLungs: bilateral breath sounds with basal crackles..Heart: Regular rate and rhyth m, S1, S2 normal, no murmurAbdomen: Soft, non-tender. Bowel sounds normal. No mass es, Noorganomegaly.peg+Back: Symmetric, no curvature. ROM normal. No CVA tenderness .Extremities: No cyanosis ,chronic lymphedema .Pulses: 2+ and symmetric all extremitie s.Skin: Skin color, texture, turgor normal. No rashes or lesionsLymph nodes: Cervica l, supraclavicular, and axillary nodes normal.Current Facility-Administered Med icationsMedication Dose Route Frequency diatrizoate tiffani-diatrizoat sod (MD-GASTR OVIEW,GASTROGRAFIN) 66-10 % contrastsolution 30 mL 30 mL InterCATHeter RAD ONCE vit s A and D-white pet-lanolin (A&D) ointment Topical PRN furosemide (LASIX) injectio n 20 mg 20 mg IntraVENous BID methylPREDNISolone (PF) (SOLU-MEDROL) in jection 40 mg 40 mg IntraVENous Q12H bacitracin 500 unit/gram packet 1 Packet 1 Packet Topical TID vancomycin 50 mg/mL oral solution (compounded) 125 mg 125 m g Per G Tube Q6H meropenem (MERREM) 500 mg in 0.9% sodium chloride (MBP/ADV) 50 mL MBP 0.5 gIntraVENous Q12H lamoTRIgine (LaMICtal) tablet 100 mg 100 mg Per G T ube QPM LORazepam (ATIVAN) tablet 1 mg 1 mg Per G Tube QHS lamoTRIgine (LaMICtal) t ablet 50 mg 50 mg Per G Tube DAILY sodium chloride (NS) flush 5-40 mL 5-40 mL Int raVENous PRN pantoprazole (PROTONIX) 40 mg in 0.9% sodium chloride 10 mL injection 40 mgIntraVENous DAILY acetaminophen (TYLENOL) tablet 650 mg 650 mg Oral Q6H PRN ondansetron (ZOFRAN) injection 4 mg 4 mg IntraVENous Q6H PRN magnesium hydrox wade (MILK OF MAGNESIA) 400 mg/5 mL oral suspension 30 mL 30mL Oral DAILY PRN a lbuterol-ipratropium (DUO-NEB) 2.5 MG-0.5 MG/3 ML 3 mL Nebulization Q6HWA RT joan tylcysteine (MUCOMYST) 100 mg/mL (10 %) nebulizer solution 400 mg 4 mLInhalatio n TID RT miconazole (MICOTIN) 2 % cream Topical BID budesonide (PULMICORT) 500 mcg/2 ml nebulizer suspension 500 mcg NebulizationBID RT cinacalcet (SENSIPAR ) tablet 60 mg 60 mg Oral DAILY heparin (porcine) injection 5,000 Units 5,000 U nits SubCUTAneous [id number]:Recent Labs 04/29/200245 0 04/27/200320WBC 12.8* -- 11.1* 7.7HGB 9.7* -- 8.8* 9.6*PLT 557* -- 524* 542*BUN -- 41* 35* 35*CREA -- 2.00* 1.98* 2.29*SGOT -- -- 9* --AP -- -- 6 3 --TBILI -- -- 0.2 --Cultures:Lab ResultsComponent Value Date/Time Culture result: (A) 04/26/2019 05:00 PM MODERATE GRAM NEGATIVE RODS IDENTIFICATION AND LEMUS SCEPTIBILITY TO FOLLOW Culture result: NO GROWTH 4 DAYS 04/25/2019 12:10 PM Cultur e result: NO GROWTH 4 DAYS 04/25/2019 12:05 PMRadiology:Xr Abd (kub)Result Date: 04/15Abdomen clinical indication evaluate J-tube position. Study demonstrates aJ-t ube projected over the upper abdomen. Without contrast material one cannot becertain e xactly where the tube is. There appears to be a mild ileus pattern.IMPRESSION: J-tube projected over upper abdomenAssessment: Staph sepsis. Aspiration pneumonia. Ac manzanita COPD exacerbation. Acute respiratory failure. Pleural effusion. Dysphagia Fever R/o C. difficile Plan:1. Continue meropenem2. Continue oral vancomycin pro phylaxis dose3. Follow GNR's in sputum4. Follow blood cxMahlet Nayan Gomezuary [id number] AM Name Value Range Interpretation Code Description Data Harriett rce(s) Supporting Document(s ) ID Date Data Source [id number] 04/29/2019 09:06:43 AM EST [facility] Progress NoteEvelio Carlin68 y.o.Adm it Date: 04/19/2019Active Problems: Pneumonia (11/08/2018) Acute hypoxemic respiratory failure (HCC) (03/25/2019) COPD with acute exacerbation (HCC) (04/19/2019) Acute on chronic respiratory failure with hypoxia and hypercapnia (HCC)(04/19/2019) Scrotal torsten h (04/21/2019)Subjective:Patient was extubated yesterday , agitated on restraints.PEG i n place , feeding in progress at 25ml/h, minimal residual, good exit site.Rectal tube in place ,no BM since last nightC diff negative.Pertinent items are noted in th e History of Present Illness.Objective:Visit VitalsBP 140/77Pulse 95Temp 97.8 F (36. 6 C)Resp (!) 33Ht 5' 2" (1.575 m)Wt 65 kg (143 lb 4.8 oz)SpO2 (!) 88%BMI 26.21 kg/ m Intake and Output:Date 04/28/19699 - 04/29/19 0659 04/29/19699 - 04/30/19 0 659Shift 9116-6515 4021-7341 24 Hour Total 9766-7243 2149-4072 24 Hour TotalINTAKEI .V.(mL/kg/hr) 320(0.4) 50(0.1) 370(0.2) Volume (dextrose 5 % - 0.45% NaCl infusi on) 270 270 Volume (meropenem (MERREM) 500 mg in 0.9% sodium chloride (MBP/ADV) 50 mL MBP)50 50 100NG/GT 275 275 Intake (ml) (PEG/Gastrostomy Tube) 275 275Shift Tot al(mL/kg) 595(9.2) 50(0.8) 645(9.9)OUTPUTUrine(mL/kg/hr) 1800(2.3) 1000(1.3) 2800(1.8) Urine Output (mL) (Urinary Catheter 04/25/19) 1800 1000 28 00Stool Stool Occurrence(s) 1 x 1 xShift Total(mL/kg) 1800(27.7) 1000(15.4) 2800( 43.1)NET -1209 -690 -9660Weight (kg) 65 65 65 65 65 65Medications Reviewed:Current Fac ility-Administered MedicationsMedication Dose Route Frequency Provider Last Rate Last Dose diatrizoate tiffani-diatrizoat sod (-GASTROVIEW,GASTROGRAFIN) 66-10 % con trastsolution 30 mL 30 mL InterCATHeter RAD ONCE Mili Hills DO vits A and D-w jaz pet-lanolin (A&D) ointment Topical PRN Mili Hills DO furosemide (LASI X) injection 20 mg 20 mg IntraVENous BID Oralia Frankel MD20 mg at 04/29/19 0826 methylPREDNISolone (PF) (SOLU-MEDROL) injection 40 mg 40 mg IntraVENous Q12HB Van tam MD 40 mg at 04/29/19 0822 bacitracin 500 unit/gram packet 1 Packet 1 Packet Topical TID Krystian Monae MD 1 Packet at 04/29/19 0822 vancomycin 50 m g/mL oral solution (compounded) 125 mg 125 mg Per G Tube [id number] severino MD 12 5 mg at 04/29/19 0632 meropenem (MERREM) 500 mg in 0.9% sodium chloride (MBP/ADV) 50 mL MBP 0.5 gIntraVENous Q12H Monica Gomez MD 16.7 mL/hr at 04/28/19 2144 500 mg at 04/28/19 2144 lamoTRIgine (LaMICtal) tablet 100 mg 100 mg Per G Tube QPM Matt Burgos MD100 mg at 04/28/19 1749 LORazepam (ATIVAN) tablet 1 mg 1 mg Per G Tube QH S Mili Hills DO 1 mgat 04/28/19 2146 lamoTRIgine (LaMICtal) tablet 50 mg 50 mg Per G Tube DAILY Roberto Burgos MD50 mg at 04/29/19 0823 sodium chloride (NS) flus h 5-40 mL 5-40 mL IntraVENous PRN Krystian Monae MD pantoprazole (PROTONIX) 40 mg in 0.9% sodium chloride 10 mL injection 40 mgIntraVENous DAILY Krystian Monae MD 40 mg at 04/29/19 0821 acetaminophen (TYLENOL) tablet 650 mg 650 mg Oral Q6H PRN Krystian Monae MD650 mg at 04/26/19 0453 ondansetron (ZOFRAN) injection 4 mg 4 mg IntraVENous Q6H PRN Krystian Monae MD magnesium hydroxide (MILK OF MAGNESIA) 4 00 mg/5 mL oral suspension 30 mL 30mL Oral DAILY PRN Krystian Monae MD albuterol-i pratropium (DUO-NEB) 2.5 MG-0.5 MG/3 ML 3 mL Nebulization Q6HWA RTMili Hills, 3 mL at 04/29/19 0747 acetylcysteine (MUCOMYST) 100 mg/mL (10 %) nebulizer so lution 400 mg 4 mLInhalation TID RT Mili Hills DO 400 mg at 04/29/19 0748 m iconazole (MICOTIN) 2 % cream Topical BID Zuly Lacey, OLIVER budesonide (PULMICOR T) 500 mcg/2 ml nebulizer suspension 500 mcg NebulizationBID RT Krystian Monae MD 5 00 mcg at 04/29/19 0833 cinacalcet (SENSIPAR) tablet 60 mg 60 mg Oral KYLEIGH Y Mili Hills, 60mg at 04/29/19 0822 heparin (porcine) injection 5,000 Units 5,000 Units SubCUTAneous Q12H Mili Hills, 5,000 Units at 04/15 09/01 0629Physical Exam:Physical Exam:General: Alert, cooperative, no distress, appear s stated age.Eyes: Conjunctivae/corneas clear. PERRL, EOMs intact.Neck: Supple, symmetrical, trachea midline, no adenopathy, thyroid: noenlargement/tenderness/nodule s, no carotid bruit and no JVD.Lungs: Clear to auscultation bilaterally.Heart: Regu lar rate and rhythm, S1, S2 normal, no murmur, click, rub or gallop.Abdomen: Soft, non-tender. Bowel sounds normal. No masses, No organomegaly.Extremities: Ex tremities normal, atraumatic, no cyanosis or edema,Pulses: 2+ and symmetric all extre mities.Skin: Skin color, texture, turgor normal. No rashes or lesionsData Review: Recent Results (from the past 24 hour(s))BLOOD GAS, ARTERIAL Collection T jose alejandro: 04/28/19 2:50 PMResult Value Ref Range pH 7.48 (H) 7.35 - 7.45 PCO2 39 32 - 48 mmHg PO2 98 83 - 108 mmHg CO2, TOTAL 30 (H) 19 - 24 mmol/L BICARBONATE 29 (H) 21 - 2 8 mmol/L O2 SAT 98 94 - 98 % BASE EXCESS 5.2 (H) 0 - 3 mmol/L SITE LEFT RADIAL MIRANDA' S TEST POSITIVE DEVICE VENTILATOR FIO2 40.0 % MODE Pressure Support PEEP/CPAP 5 PRESSU RE SUPPORT 10 Performed by [id number] Collection Time: 04/29/19 3:45 AMResult Value Ref Range Magnesium 2.5 1.6 - 2.6 mg/dLPHOSPHORUS Collection Time: 0 3:45 AMResult Value Ref Range Phosphorus 4.0 2.5 - 4.9 mg/dLMETABOLIC PANEL, BASI C Collection Time: 04/29/19 3:45 AMResult Value Ref Range Sodium 138 136 - 145 mmo l/L Potassium 4.1 3.5 - 5.1 mmol/L Chloride 106 98 - 107 mmol/L CO2 25 21 - 32 mmol/ L Anion gap 11 10 - 20 mmol/L Glucose 96 74 - 106 mg/dL BUN 41 (H) 7 - 18 mg/dL Creati nine 2.00 (H) 0.70 - 1.30 mg/dL GFR est AA 43 (L) >60 ml/min/1.73m2 GFR est non-AA 35 (L) >60 ml/min/1.73m2 Calcium 9.8 8.5 - 10.1 mg/dLALBUMIN Collection Time: 04/29/19 3:45 AMResult Value Ref Range Albumin 1.8 (L) 3.5 - 4.7 g/dLBLOOD GAS, ARTERIAL Collec tion Time: 04/29/19 6:11 AMResult Value Ref Range pH 7.45 7.35 - 7.45 PCO2 44 32 - 4 8 mmHg PO2 70 (L) 83 - 108 mmHg CO2, TOTAL 32 (H) 19 - 24 mmol/L BICARBONATE 31 (H) 21 - 28 mmol/L O2 SAT 96 94 - 98 % BASE EXCESS 5.8 (H) 0 - 3 mmol/L SITE RIGHT RADIAL A LLEN'S TEST POSITIVE DEVICE AEROSOL MASK O2 FLOW 8 L/min FIO2 40.0 % Performed by [id number] W/O DIFF Collection Time: 04/29/19 6:45 AMResult Value Ref Range WBC 12.8 ( H) 4.8 - 10.6 K/uL RBC 3.18 (L) 4.70 - 6.00 M/uL HGB 9.7 (L) 14.0 - 18.0 g/dL HCT 30 .8 (L) 42.0 - 52.0 % MCV 96.9 (H) 81.0 - 94.0 FL MCH 30.5 27.0 - 35.0 PG MCHC 31.5 30. 7 - 37.3 g/dL RDW 17.4 (H) 11.5 - 14.0 % PLATELET 557 (H) 130 - 400 K/uL MPV 9.2 9.2 - 11.8 FL NRBC 0.0 0 PER 100 WBC ABSOLUTE NRBC 0.00 0.0 - 0.01 K/uLImaging:Xr Abd (kub)Result Date: 04/28/2019Abdomen clinical indication evaluate J-tube position. Adolfo dy demonstrates aJ-tube projected over the upper abdomen. Without contrast material one cannot becertain exactly where the tube is. There appears to be a mild ileus pat tern.IMPRESSION: J-tube projected over upper abdomenImpression:Active Hospital Proble ms Diagnosis Date Noted Scrotal rash 04/21/2019 COPD with acute exacerbation (HCC) 04/19/2019 Acute on chronic respiratory failure with hypoxia and hyp ercapnia (HCC)04/19/2019 Acute hypoxemic respiratory failure (HCC) 03/25/2019 Pn eumonia 11/08/2018 NOAH. Diarrhea, not C diff, improvedPlan:Continue feeding, i ncrease slowlyD/c oral; vanco if ok with IDContinue merem.Awaiting surgical follo w up for opossible J tubeFamily refused transfer.D/C planning if no surgery need ed.Oralia Frankel MDJanuary 2019 Name Value Range Interpretation Code Description Data [facility] Supporting Document(s ) ID Date Data Source [id number] 04/29/2019 07:23:44 AM EST [facility] Bedside and Verbal shift change report carol Ortiz RN (oncoming nurse) by Rhea (offgoing nurse). Report included the fo llowing information SBAR, Kardex, EDSummary, Intake/Output, MAR, Recent Results and C ardiac Rhythm NSR. Name Value Range Interpretation Code Description Data [facility](s) Supporting Document(s ) ID Date Data Source [id number] 04/29/2019 07:06:35 AM EST [facility] Name Value Range Interpretation Description Data Sup porting Code Source(s) Document(s ) Leukocytes 12.8 4.8-10.6 Above high normal [facility] - [#/volume] in K/uL [facility] by [facility] Automated count Hospital Erythrocytes 3.18 4.70-6.0 Below low normal [facility] - [#/volume] in M/uL 0 [facility] by [facility] Autom[facility] count [facility] Hemoglobin 9.7 g/dL 14.0-18. Below low normal [facility] - [Mass/volume] in 0 Good Blood [facility] Hematocrit 30.8 % 42.0-52. Below low normal [facility] - [Volume 0 Good Fraction] of [facility] Blood by Hospital Automated count Erythrocyte mean 96.9 FL 81.0-94. Above high normal [facility] - corpuscular 0 Good volume [Entitic Taoist volume] by Hospital Automated count Erythrocyte mean 30.5 PG 27.0-35. [facility] - corpuscular 0 Good hemoglobin Taoist [Entitic mass] Hospital by Automated count Erythrocyte mean 31.5 30.7-37. [facility] - corpuscular g/dL 3 Good hemoglobin Taoist concentration [facility] [Mass/volume] by Automated count Erythrocyte 17.4 % 11.5-14. Above high normal [facility] - distribution 0 Good width [Ratio] by [facility] Automated count Hospital Platelets 557 K/uL 130-400 Above high normal [facility] - [#/volume] in Good Blood by [facility] Automated count [facility] Platelet mean 9.2 FL 9.2-11.8 [facility] - volume [Entitic Good volume] in Blood [facility] by Automated Hospital count Nucleated 0.0 PER 0 [facility] - erythrocytes/100 100 WBC Good leukocytes [facility]ist [Ratio] in Blood Hospital Nucleated 0.00 0.0-0.01 [facility] - erythrocytes K/uL Good [#/volume] in Taoist Blood [facility] ID Date Data Source [id number] 04/29/2019 06:12:02 AM EST [facility] Name Value Range Interpretation Description Data Sup porting Code Source(s) Document(s ) pH of Arterial 7.45 7.35-7.4 [facility] blood 5 [facility] Carbon dioxide 44 mmHg 32-48 [facility] [Partial Taoist pressure] in Hospital Arterial blood Oxygen 70 mmHg 83-108 Below low normal [facility] [Partial [facility] pressure] in Hospital Arterial blood Carbon 32 19-24 Above high normal [facility] Good dioxide, total mmol/L Taoist [Moles/volume] Hospital in Arterial blood Bicarbonate 31 21-28 Above high normal [facility] - Go od [Moles/volume] mmol/L [facility] in Arterial Hospital blood Oxygen 96 % 94-98 [facility] Good saturation in [facility] Base excess in 5.8 0-3 Above high normal [facility] Good Arterial blood mmol/L Taoist by calculation Hospital Body site [facility]ial [facility] Wrist Tao[facility] artery --pre Hospital arterial puncture AEROSOL MASK8 Oxygen/Inspired gas Respiratory system 40.0 % [facility] --on ventilator Service comment [id number] [facility] - [facility] ID Date Data Source [id number] 04/29/2019 05:43:58 AM EST [facility] Value Range Interpretation Description Data Sup porting Code Source(s) Document(s ) Phosphate 4.0 mg/dL 2.5-4.9 [facility] [Mass/volume] Taoist in Serum or Hospital Plasma ID Date Data Source [id number] 04/29/2019 05:43:58 AM EST [facility] Value Range Interpretation Description Data Sup porting Code Source(s) Document(s ) Magnesium 2.5 mg/dL 1.6-2.6 [facility] [Mass/volume] Taoist in Serum or Hospital Plasma ID Date Data Source [id number] 04/29/2019 05:43:58 AM EST [facility] Value Range Interpretation Description Data Sup porting Code Source(s) Document(s ) Albumin 1.8 g/dL 3.5-4.7 Below low normal [facility] [Mass/volume] Taoist in Serum or Hospital Plasma by Bromocresol purple (BCP) dye binding method ID Date Data Source [id number] 04/29/2019 05:43:58 AM EST [facility] Name Value Range Interpretation Description Data Sup porting Code Source(s) Document(s ) Sodium 138 136-145 [facility] [Moles/volume] mmol/L [facility] in Serum or Hospital Plasma Potassium 4.1 3.5-5.1 [facility] [Moles/volume] mmol/L [facility] in Serum or Hospital Plasma Chloride 106 98-107 [facility] [Moles/volume] mmol/L [facility] in Serum or Hospital Plasma Carbon 25 21-32 [facility] dioxide, total mmol/L [facility]ist [Moles/volume] Hospital in Serum or Plasma Anion gap in 11 10-20 [facility] Serum or mmol/L [facility]ist Plasma Hospital Glucose 96 mg/dL 74-106 [facility] [Mass/volume] Taoist in Serum or Hospital Plasma Urea nitrogen 41 mg/dL 7-18 Above high normal [facility] [Mass/volume] Taoist in Serum or Hospital Plasma Creatinine 2.00 0.70-1.3 Above high normal [facility] - [facility] d [Mass/volume] mg/dL 0 [facility] in Serum or Hospital Plasma Glomerular 43 >60 Below low normal [facility] filtration ml/min/1 Taoist rate/1.73 sq M .73m2 Hospital predicted among blacks [Volume Rate/Area] in Serum or Plasma by Creatinine-bas ed formula (MDRD) Glomerular 35 >60 Below low normal [facility] filtration ml/min/1 Taoist rate/1.73 sq M .73m2 Hospital predicted among non-blacks [Volume Rate/Area] in Serum or Plasma by Creatinine-bas ed formula (MDRD) Calcium 9.8 8.5-10.1 [facility] [Mass/volume] mg/dL Taoist in Serum or Hospital Plasma ID Date Data Source [id number] 04/28/2019 07:43:01 PM EST [facility] Bedside and Verbal shift change report carol pham to Tessie PITTS (oncoming nurse) Quinn Banks RN(offgoing nurse). Report given w ith SBAR, Kardex, Intake/Output, MAR and RecentResults. Name Value Range Interpretation Code Description Data [facility] Supporting Document(s ) ID Date Data Source [id number] 04/28/2019 06:16:00 PM [facility] 0800 Received pt in bed intubated; awake alert. Tube feeding infusing andtolerating.1150 Pt placed on CPAP/PS as ordered by Dr Monae.1400 Pt tolerating cpap/ps. Awaiting ABG to be drawn.[address] Frankel pt to be transferred to [facility].1550 Dr Monae made aware of ABG res ults; said to extubate to 40% aerosol.1555 RT made aware.1615 pt extubated to 40 % aer osol [id number] As per Pt's nephew; Dr Frankel initiated the transfer; but they don't w antpt to be transferred tonight since he just got extubated;1715 This Rn spoke to dr Gaston selby; as per Dr Frankel; pt needs to for surgicalplacement Of feeding tube; Dr Feldman made aware that pt was extubated 1 hour ago.[address] Sandro Uribe called this R n and said that he spoke to Dr Frankel; pt isnot to be transferred until re evaluat ed tomorrow by surgeon regarding feedingtube placement.1815 Transfer center called an d was made aware that transfer is cancelled. Name Value Range Interpretation Code Description Data [facility](s) Supporting Document(s ) ID Date Data Source [id number] 04/28/2019 04:20:09 PM [facility] Pt extubated to 40% aerosal face mask. 0 04/28/19 1618Patient ObservationsPulse (Heart Rate) 90Resp Rate 28O2 Sat (%) 100 %Resp iratoryRespiratory (WDL) WDLRespiratory Pattern TachypneicVentilator Initiate/Di scontinueVentilator Discontinue YesVentilator MeasurementsResp Rate Observed 28 Name Value Range Interpretation Code Description Data [facility](s) Supporting Document(s ) ID Date Data Source [id number] 04/28/2019 03:01:05 PM [facility] PT FOR TRANSFER TO MEDICAL CENTER. Nadeem feldman transfer Center and coordinatorreports pt accepted by Dr Larson and is awaiting an MICU bed. Face sheet, H&Pand clinicals faxed.They will notify the CCU and arran ge transportation when ICU bed available.Care Management InterventionsPCP Verified by CM: YesMode of Transport at Discharge: BLS([facility] )Transition of Care Consult (CM Consult): Discharge PlanningMyChart Signup: NoDischarge Dura ble Medical Equipment: NoPhysical Therapy Consult: NoOccupational Therapy Consult: NoSpeech Therapy Consult: NoCurrent Support Network: Nursing Facility([facility] )The Patient and/or Patient Engineering Group Manager was Provided with a Choice of Provideran d Agrees with the Discharge Plan?: YesFreedom of Choice List was Provided with Basic D ialogue that Supports thePatient's Individualized Plan of Care/Goals, Treat ment Preferences and Sharesthe Quality Data Associated with the Providers?: YesVeter an Resource Information Provided?: RefusedDischarge LocationDischarge Place ment: Transferred to higher level of care(TRANSFER TO [facility])Dr Cardona has docume about transfernted that he spoke with family. Name Value Range Interpretation Code Description Data Harriett rce(s) Supporting Document(s ) ID Date Data Source [id number] 04/28/2019 02:50:45 PM EST [facility] Name Value Range Interpretation Description Data Sup porting Code Source(s) Document(s ) pH of Arterial 7.48 7.35-7.4 Above high normal [facility] blood [address] [place] [address] Carbon dioxide 39 mmHg 32-48 [facility] [Partial Taoist pressure] in Hospital Arterial blood Oxygen 98 mmHg 83-108 [facility] [Partial Taoist pressure] in Hospital Arterial blood Carbon 30 19-24 Above high normal [facility] - [facility] dioxide, total mmol/L Taoist [Moles/volume] Hospital in Arterial blood Bicarbonate 29 21-28 Above high normal [facility] - Go od [Moles/volume] mmol/L Taoist in Arterial Hospital blood Oxygen 98 % 94-98 [facility] - [facility] saturation in [facility] Base excess in 5.2 0-3 Above high normal [facility] Arterial blood mmol/L Taoist by calculation Hospital Body site [facility] Arterial [facility] - [facility] patency Wrist Taoist artery --pre Hospital arterial puncture Oxygen gas [facility] - [facility] flow Oxygen Taoist delivery Hospital system Oxygen/Inspire 40.0 % [facility] - [facility] d gas [facility] Respiratory Hospital system --on ventilator Ventilation [facility] mode Taoist [Identifier] [facility] Ventilator PEEP 5 [facility] Respiratory [facility] system Hospital Pressure 10 [facility] support [facility] Hospital Ventilator Service [id number] [facility] - [facility] comment [facility] ID Date Data Source [id number] 04/28/2019 02:31:43 PM EST [facility] Spoke to Dr Rice about patiet transfe r, I spoke to family sister and cousinDr Sandor DAVISLER [phone] ke to transfer center in [facility], accept pt to be transferd to ICU via ICUtransfer Name Value Range Interpretation Code Description Data Harriett rce(s) Supporting Document(s ) ID Date Data Source [id number] 04/28/2019 02:20:24 PM EST [facility] Abdomen clinical indication evaluate J-t ube position.Study demonstrates a J-tube projected over the upper abdomen. Withou t contrastmaterial one cannot be certain exactly wherethe tube is. There appears to be a mild ileus pattern.IMPRESSION:J-tube projected over upper abdomen Signing pan e/time: 04/28/2019 2:20 PMSigned by: ROSEANNE SÁNCHEZ Name Value Range Interpretation Code Description Data Harriett rce(s) Supporting Document(s ) ID Date Data Source [id number] 04/28/2019 02:21:48 PM EST [facility] Critical Care Progress N [facility]Krystian Monae MD., F.C.C.P.Stella Hamilton MD., F.C.C.P. [address] [place] [address] [place] [address] Name: Evelio AlexinDOB: 1950MRN: [id number]: 04/28/2019Subjective:Mr. Carlin is a 68 y.o. year old male who is being see n for Acuterespiratory fail;ure , He is Much awake Today Though have underlyi ngMental Retardation .Aeration is better In Lungs ABGG ON VENTILATOR PH = 7. 46 . PCO2 39 , PO2 =111 , HCO3 = 28 MUCHIMPROVED MILD METABOLIC ALKALOSIS WITH NORMOXEMIA . CHEST XRAY BILATERAL PL, EFFUSION , COPD , CARDIOMEGALY. 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) Pneumonia Psychiatric disorder schizophrenia Pulmonary emboli (HCC) S chizophrenia (HCC)Allergy:No Known AllergiesVital Signs:Patient Vitals for the past 24 hrs: BP Temp Pulse Resp SpO2 Oszzds63/14/20 1303 - - 80 23 98 % -04/15 08/02 1300 - - - - - 65 kg (143 lb 4.8 oz)04/28/19 1200 (!) 158/103 97.5 F (36 .4 C) 80 23 100 % -04/28/19 1152 - - 70 18 99 % -04/28/19 1100 137/70 - 68 18 94 % -04/28/19 1000 139/74 - 81 20 94 % -04/28/19 0900 149/76 - 72 18 97 % -04/28/19 0839 - - (!) 55 18 97 % -04/28/19 0800 145/76 97 F (36.1 C) 66 18 95 % -04/28/19 0700 13 9/64 - (!) 57 18 94 % -04/28/19 0600 124/67 - 64 18 100 % -04/28/19 0500 122/65 - 70 1 8 99 % -04/28/19 0400 119/71 97.6 F (36.4 C) 64 18 97 % -04/28/19 0300 95/61 - 68 18 94 % -04/28/19 0248 - - 66 15 96 % -04/28/19 0200 127/64 - 83 25 98 % -01/1 4/20 0100 138/67 - 73 18 91 % -04/28/19 0000 132/66 98.4 F (36.9 C) 74 18 94 % - 2300 113/51 - 73 18 94 % -04/27/19 2200 125/59 - 88 21 98 % -04/27/19 2150 - - 8 7 18 97 % -04/27/19 2100 139/72 - 83 19 96 % -04/27/19 2000 125/71 97.2 F (36.2 C) 88 12 99 % -04/27/19 1900 121/67 - 90 18 100 % -04/27/19 1836 - - 92 20 100 % - 1800 133/66 - 95 18 100 % -04/27/19 1700 141/56 - (!) 101 18 100 % -04/27/19 1600 121/66 97 F (36.1 C) (!) 103 14 99 % -04/27/19 1509 - - (!) 102 22 98 % -04/15 07/02 1500 114/61 - 89 18 98 % -Pulse OX:SpO2 Readings from Last 6 Encounters:04/28/19 98%04/16/19 100%04/06/19 99%03/17/19 92%02/19/19 96%02/18/19 92%@LASTSAO2(6)@ Intake/Output:Last shift: 04/28 700 - 04/28 1900In: 420 [I.V.:320]Out: -Last 3 shifts: 04/26 1900 - 04/28 0700In: 3063.7 [I.V.:2013.7]Out: 1140 [Urine:890; Drain s:250]Intake/Output Summary (Last 24 hours) at 04/28/2019 1402Last data filed at 04/28 1030Gross per 24 hourIntake 2494.7 mlOutput 650 mlNet 1844.7 mlHemodynamics :.@MAP.@CVPVentilator Settings:Ventilator Mode: Pressure supportRespiratory RateIn sp Time (sec): 1 secI:E Ratio: 1:2.3Ventilator VolumesVt Set (ml): 400 mlVt Exhaled (Machine Breath) (ml): 414 mlVt Spont (ml): 399 mlVe Observed (l/min): 9 .4 l/minVentilator PressuresPressure Support (cm H2O): 10 cm H2OPIP Observed (cm H2O) : 16 cm H2OMAP (cm H2O): 8PEEP/VENT (cm H2O): 5 cm Z76Slgs PEEP Observed (cm H2O): 2.3 cm I5FQxyr Rate Tidal Volume Pressure FiO2 PEEPPressure support 400 ml 10 cm H2O 40 % 5 cm Q01Vyid airway pressure: 16 cm Z7BStfhyw ventilation: 9.4 l/minARDS net work Guidelines: Lung protective strategy and Pl pressure goals 16CMS less than or e qual to 30Physical Exam: MORE AWAKE , ORAL INTUBATION , HAVE SEVERE MENTAL RETARD ATION. General: Alert, cooperative, DECREASED RESPIRATORY distress,appea rs stated age. Head: Normocephalic, without obvious abnormali ty, atraumatic. Eyes: Conjunctivae/corneas clear. PERRL, EOMs intact. Nose: Nares normal. No drainage or sinus tenderness Thr oat: Lips, mucosa, and tongue normal Neck: Supple, symmetrical, trachea midline, no adenopathy,thyroid: no enlargement/tenderness/nodules, no carot id bruit and no JVD. Lungs: WHEEZING ARE LESS , RALES + L L AND RLL , MILDDULLNESS AT BASES , NO RUB to auscultation bilaterally. Chest Wall: No tenderness or deformity. Heart: Regular rate and rhythm, S1, S2 jazzmine l, E S GR 1/ 8murmur, click, rub or gallop. Abdomen: Soft, non-tender. Bowel sounds normal. No masses, No organomegaly. Extremities: CONTRACTED , Extremities normal, atraumatic, no cyanosis oredema. Pulses: 4+ b ilaterally Skin: Skin color, texture, turgor normal. No rashes or les ions. Neurologic: CNII-XII intact. No focal motor or sensory deficit.DATA:[facility] Facility-Administered MedicationsMedication Dose Route Frequen cy vits A and D-white pet-lanolin (A&D) ointment Topical PRN furosemide (LASI X) injection 20 mg 20 mg IntraVENous BID methylPREDNISolone (PF) (SOLU-MEDROL) in jection 40 mg 40 mg IntraVENous Q12H vancomycin 50 mg/mL oral solution (compo unded) 125 mg 125 mg Per G Tube Q6H meropenem (MERREM) 500 mg in 0.9% sodium chloride (MBP/ADV) 50 mL MBP 0.5 gIntraVENous Q12H lamoTRIgine (LaMICtal ) tablet 100 mg 100 mg Per G Tube QPM LORazepam (ATIVAN) tablet 1 mg 1 mg Per G Tube QHS lamoTRIgine (LaMICtal) tablet 50 mg 50 mg Per G Tube DAILY sodium chlor wade (NS) flush 5-40 mL 5-40 mL IntraVENous PRN pantoprazole (PROTONIX) 40 mg in 0. 9% sodium chloride 10 mL injection 40 mgIntraVENous DAILY acetaminophen (TYLE NOL) tablet 650 mg 650 mg Oral Q6H PRN HYDROcodone-acetaminophen (NORCO) 5-325 mg per tablet 1 Tab 1 Tab Oral Q4HPRN ondansetron (ZOFRAN) injection 4 mg 4 m g IntraVENous Q6H PRN magnesium hydroxide (MILK OF MAGNESIA) 400 mg/5 mL oral susp ension 30 mL 30mL Oral DAILY PRN albuterol-ipratropium (DUO-NEB) 2.5 MG-0 .5 MG/3 ML 3 mL Nebulization Q6HWA RT acetylcysteine (MUCOMYST) 100 mg/mL (10 %) nebulizer solution 400 mg 4 mLInhalation TID RT miconazole (MICOTIN) 2 % cream Topical BID budesonide (PULMICORT) 500 mcg/2 ml nebulizer suspension 500 mcg N ebulizationBID RT cinacalcet (SENSIPAR) tablet 60 mg 60 mg Oral DAILY heparin (porcine) injection 5,000 Units 5,000 Units SubCUTAneous S15DYbqbtazoj: [x]Sinus []A -flutter []Paced []A-fib []Multiple PVC'sLabs:Recent Results (from the past 24 hour(s))MAGNESIUM Collection Time: 04/28/19 3:29 AMResult Value Ref Range Magnesium 2.5 1.6 - 2.6 mg/dLCBC WITH AUTOMATED DIFF Collection Time: 04/28/19 3:29 AMResult Value Ref Range WBC 11.1 (H) 4.8 - 10.6 K/uL RBC 2.90 (L) 4.70 - 6.00 M/uL HGB 8.8 (L) 14.0 - 18.0 g/dL HCT 27.6 (L) 42.0 - 52.0 % MCV 95.2 (H) 81.0 - 94 .0 FL MCH 30.3 27.0 - 35.0 PG MCHC 31.9 30.7 - 37.3 g/dL RDW 17.8 (H) 11.5 - 14.0 % P LATELET 524 (H) 130 - 400 K/uL MPV 9.5 9.2 - 11.8 FL NRBC 0.0 0 PER 100 WBC ABSOLUTE NRBC 0.00 0.0 - 0.01 K/uL NEUTROPHILS 92 (H) 48.0 - 72.0 % LYMPHOCYTES 6 (L) 18.0 - 4 0.0 % MONOCYTES 1 (L) 2.0 - 12.0 % EOSINOPHILS 0 0.0 - 7.0 % BASOPHILS 0 0. 0 - 3.0 % IMMATURE GRANULOCYTES 1 (H) 0 - 0.5 % ABS. NEUTROPHILS 10.3 (H) 2.3 - 7.6 K/ UL ABS. LYMPHOCYTES 0.7 (L) 0.9 - 4.2 K/UL ABS. MONOCYTES 0.1 0.1 - 1.7 K/UL ABS. E OSINOPHILS 0.0 0.0 - 1.0 K/UL ABS. BASOPHILS 0.0 0.0 - 0.4 K/UL ABS. IMM. GRANS. 0.1 0.0 - 0.17 K/UL DF AUTOMATEDMETABOLIC PANEL, COMPREHENSIVE Collection Time: 04/28/19 3:29 AMResult Value Ref Range Sodium 139 136 - 145 mmol/L Potassium 3.7 3.5 - 5.1 mmo l/L Chloride 107 98 - 107 mmol/L CO2 28 21 - 32 mmol/L Anion gap 7 (L) 10 - 20 mmol/L Glucose 149 (H) 74 - 106 mg/dL BUN 35 (H) 7 - 18 mg/dL Creatinine 1.98 (H) 0.70 - 1. 30 mg/dL GFR est AA 43 (L) >60 ml/min/1.73m2 GFR est non-AA 36 (L) >60 ml/min/1.73m2 Calcium 9.2 8.5 - 10.1 mg/dL Bilirubin, total 0.2 0.2 - 1.0 mg/dL ALT (SGPT) 8 (L) 13 - 61 U/L AST (SGOT) 9 (L) 15 - 37 U/L Alk. phosphatase 63 45 - 117 U/L Protein, tot al 5.4 (L) 6.4 - 8.2 g/dL Albumin 1.5 (L) 3.5 - 4.7 g/dL Globulin 3.9 1.7 - 4.7 g/dL A -G Ratio 0.4 (L) 0.7 - 2.8BLOOD GAS, ARTERIAL Collection Time: 04/28/19 6:23 AMResult Value Ref Range pH 7.46 (H) 7.35 - 7.45 PCO2 39 32 - 48 mmHg PO2 111 (H) 83 - 108 mmH g CO2, TOTAL 29 (H) 19 - 24 mmol/L BICARBONATE 28 21 - 28 mmol/L O2 SAT 99 (H) 94 - 98 % BASE EXCESS 3.7 (H) 0 - 3 mmol/L SITE LEFT RADIAL MIRANDA'S TEST POS ITIVE DEVICE VENTILATOR FIO2 40.0 % MODE Pressure regulated volume control PEEP/C PAP 5 Tidal volume 400 RATE 18 Performed by [id number]:Recent Labs 04/25/20214PH 7.46* 7.46* 7.41PCO2 39 41 52*PO2 111* 96 114*HCO3 28 29* 33* FIO2 40.0 50.0 60.0Recent Glucose Results:Lab ResultsComponent Value Date/Time GLU 149 (H) 04/28/2019 03:29 AMCULTURES:All Micro Results Procedure Component Value Units Date/Time CULTURE, RESPIRATORY/SPUTUM/BRONCH W GRAM STAIN [[id number]] (Abnormal)Manuel ected: 04/26/19 1700 Order Status: Completed Specimen: Sputum from Trachea l Aspirate Updated:04/28/19 1050 Special Requests: NO SPECIAL REQUESTS GRAM STAI N 10-25 WBC/lpf <10 EPI/lpf FEW GRAM POSITIVE RODS Culture result: MODERATE GRAM NEGATIVE RODS IDENTIFICATION AND SUSCEPTIBILITY TO FOLLOW CULTURE, BLOOD [[id number]] Collected: 04/25/19 1205 Order Status: Completed Specimen: Blood Upda mikel: 04/28/19 0621 Special Requests: NO SPECIAL REQUESTS Culture result: NO HAIDER WTH 3 DAYS CULTURE, BLOOD [[id number]] Collected: 04/25/19 1210 Order Status: Completed Specimen: Blood Updated: 04/28/19 0621 Special Requests: NO SPEC IAL REQUESTS Culture result: NO GROWTH 3 DAYS C. DIFFICILE (DNA) [[id number]] Manuel ected: 04/27/19 0915 Order Status: Completed Specimen: Stool Updated: 1246 C. difficile (DNA) NEGATIVE Comment: This specimen is negative for t oxigenic C difficile by DNAamplification. Repeat testing is not recommended for co nfirmation, samplesreceived within 7 days of this negative result will be rejected. C . DIFFICILE (DNA) [[id number]] (Abnormal) Collected: 04/25/19 1715 Order Status: Completed Specimen: Stool Updated: 04/26/19 1551 C. difficile (DNA) TEST RESULT IS INCONCLUSIVE. PLEASE SUBMIT A NEW SPECIMEN FOR ANALYSIS. CULTURE, URINE [[id number]] Collected: 04/25/19 1147 Order Status: Completed Specimen: Urine from Clean catch Updated: Special Requests: NO SPECIAL REQUESTS Culture r esult: NO GROWTH 1 DAY C. DIFFICILE (DNA) [[id number]] Order Status: Sent Specimen : Stool CULTURE, BLOOD [[id number]] Collected: 04/20/19 1440 Order Status: Completed Specimen: Blood Updated: 04/26/19 08 Special Requests: NO SPEC IAL REQUESTS Culture result: NO GROWTH 6 DAYS CULTURE, BLOOD [[id number]] Collecte d: 04/20/19 1447 Order Status: Completed Specimen: Blood Updated: 04/26/19 08 Special Requests: NO SPECIAL REQUESTS Culture result: NO GROWTH 6 DAYS CULTURE , BLOOD [[id number]] (Abnormal) Collected: 04/19/19 1005 Order Status: Completed S pecimen: Blood Updated: 04/22/19 0731 Special Requests: NO SPECIAL REQUESTS G ESCOBAR STAIN GRAM POSITIVE COCCI IN CLUSTERS ANAEROBIC BOTTLE CALLED TO AND READ MAIN K BY ROB LEDEZMA,RN, ED, 0938 ON 04/20/19 TORISMIRAGLIA Culture result: S TAPHYLOCOCCUS EPIDERMIDIS : Refer to previous culture(s) for susceptibilityresults CUL TURE, BLOOD [[id number]] (Abnormal) (Susceptibility) Collected: 5 Order Status: Completed Specimen: Blood Updated: 04/22/19 0729 Special Request s: NO SPECIAL REQUESTS GRAM STAIN GRAM POSITIVE COCCI IN CLUSTERS ANAEROBIC BOT TLE CALLED TO AND READ BACK BY ROB LEDEZMA, RN, ED, AT 0953 ON 04/20/19 TO [facility] Culture result: STAPHYLOCOCCUS EPIDERMIDISXR Results (most recent):Resu lts from Hospital Encounter encounter on 04/19/19XR CHEST SNGL V Narrative AP por table film of the chest clinical indication pneumoniaStudy is compared to previous e xamination of April 25, 2019. Again noted isendotracheal tube in situ, the tip is above the tian. Extensive bibasalhaziness is noted infiltrate versus congestive ch raysa. Also noted is markedprominence to pulmonary vasculature. Heart size is dif ficult to evaluate. Theremay be small bilateral pleural effusions. Impression IMPRESSION:1. Endotracheal tube in satisfactory position.2. Extensive bibas al haziness.3. Prominence to pulmonary vascular markings.4. Possible bilateral small pleural effusionsCT Results (most recent):Results from Hospital Encounter encounter on 04/19/19CT CHEST ABD PELV WO CONT Narrative Referring Physician: MARYANN HILLSPatient Name: EVELIO FISSCOTTBEINFINAL REPORT FROM IMAGING ON [place]: CT chest without contrast and CT abdomen pelvis withoutcontrastDATE OF EX AM: 2019-04-20 20:52:12IMAGES: 681HISTORY: reduced breath sounds right lung, LLQ te ndernessComparison: 03/14/19 and 12/21/18FINDINGS: Axial images of the ches t, abdomen and pelvis areobtained without iv contrast.Chest: Mediastinal assessment i s limited without contrast. Imagequality limited by artifacts. Patchy lung opacit ies right greaterthan left similar to prior. Small pleural effusions. Vascularincludi ng coronary calcifications. Mediastinum appears shifted tothe right. Left hemidi aphragm is elevated.Abdomen and pelvis: Nonspecific bowel pattern, with post nena gicalchanges on the left. No definite free air. Organ assessmentlimited without iv contrast. No significant free fluid or freeair.No bowel obstruction or abscess seen. Catheter and air in thebladder which is not well assessed. Left hip hardware par tiallyseen with old fracture deformity. G-J tube is present. Ventralhernia right of midline at abdominal wall with multiple smallbowel loops without obstructive pat tern. Mild right muscleswelling with possible hematoma and calcification at right groi nimage 117/120. Degenerative bony changes. Multiple likely chroniccompression defor mities at thoracic and lumbar spine. BilateralL5-S1 spondylolysis and anterol isthesis. Impression IMPRESSION: Right greater than left lung infiltrates and e ffusions.No bowel obstruction. 2 cm hyperdensity at a bowel loop in leftpelv is image 90/120, possibly ingested material, or a tubefragment or post surgical singleton e.Ventral abdominal hernia seen.See above.One or more of the following dose reduction techniques were used:automated exposure control, adjustment of the mA and/or kVa ccording to patient size, use of iterative reconstructivetechnique.THIS DOCUMENT NELSON S BEEN ELECTRONICALLY SIGNEDFrsofia Edge MD04/20/2019 22:43 ESTM.D. Please call I magagustin Wireless Consultant [phone] ([phone]) withquestions.This report was electronic ally signed by:Marcie Edge MD 04/20/2019 10:44 PMImages:[email or web address] TEXTTh is SmartLink requires a parameter for processing. Parameters are variableswhic h can be added to the original SmartLink name. This allows you to requestspecific information by giving the SmartLink precise direction.The BSHSILASTIMGCAT SmartLink accepts (as a parameter) an external procedure IDor an anatomical region. Typ ically, this external ID would be the CPT code.You can also request the number of procedures to be displayed by this SmartLink.To indicate the number, type t he procedure ID or anatomical regions followed bya colon and then the number o f procedures. To display all occurences for thatparticular procedure ID/anatomical r egions, type an asterisk in place of thenumber. To obtain only the last occur ence, type the procedure ID/anatomicalregions without the colon, number, or asterisk.T his SmartLink can display other procedures in the same procedure category if aparamete r is set.The SmartLink will display the last x cases of the procedure or anatomicalre gions you entered.Example: .BSHSILASTIMGCAT[[id number] example wo uld display results for the last three orders with an externalprocedure ID of [id number] he patient is: [] acutely ill Risk of deterioration: [x] moderate [x] critical ly ill [] highActive Problems: Pneumonia (11/08/2018) Acute hypoxemic respiratory failure (HCC) (03/25/2019) COPD with acute exacerbation (HCC) (04/19/2019) Acute on chronic respiratory failure with hypoxia and hypercapnia (HCC)(04/19/2019) Scrotal torsten h (04/21/2019)IMPRESSION:1 ACUTE HYPERCAPNIC AND HYPOXIC RESPIRATORY FA ILURE DUE TO SEVERE COPD/ PNEUMONIA R ML , R L L 1. ATELECTASIS L L L RESOLVED WITH INTUBATION2. PLEURAL EFFUSION RT AN LT - SMALL3. SEVERE COPD 4. ELIU RE METABOLIC ENCEPHALOPATHY IMPROVED5. SEVERE MENTAL RETARDATION6. SEIZURE VS TREMORS ON LAMICTAL SEEN BY DR SCHNEIDER 7. PNEUMONIA - G N R8. SEPSIS L A = 2.59. BACTEREMIA G + COCCI - STAPH EPIDERMITIS 10. SEVERE MAL NUTRITION ,11. 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 POSSIBLE 2 CM SEGMENT OF TUBE IN ILEUM EPR RADIOLOGY ON CATSCAN REPORT G I FOLLOWING Plan: 1 HE APPEARS IMPROVED WILL TRY PRESSURE SUPPORT FOR WEANING , CHECKABG ON P S IF ADEQUATE TRIAL OF EXTUBATION1. DUO NEB Q 4 H2. MUCOMYST 10 % VIA MINI NE B Q 8 H3. LASIX 20 MG I V P B I D PER RENAL - DR FRANKEL 4. DISCUSSED WIT H RN ON BED SIDE 5 CONT MEROPENEM AND VANCOMYCIN 6 PATIENT WILL NEED J RICHELLE FOR PERSISTENTLY LEAKING P E G TUBE7 ADD PROSTAT FOR HYPOALBUMINE MIA8 PATIENT HAVE SEVERE MENTAL RETARDATIONS AND REPEATED ASPIRATIONS , HE FELIBERTO NEED TRACHEOSTOMY TO KEEP HIS AIR WAYS PATENT , DISCUSSED WITH HISSISTER KIRSTIN WHYTE AND HC P - IF HE FAILS WEANING DR CACERES E N T , HE A JUDY 6. , I V SOLUMEDROL FOR COPD7. MUCOMYST TO LOOSEN TRACHEOBRONCHIAL SE CTERTIONS CHEST P T TO MOBILIZE SECRETIONS8 IF HE FAILS WEANING THEN WILL PROCEED WITHTRACHEOSTOMY My assessment, plan of care, findings, medi cations, side effects etc werediscussed with:[x]nursing []PT/OT[x]respiratory th erapy [x][]family []Critical Care Provided 45 minutes non procedure based.MD Trevor KnightPGualberto Name Value Range Interpretation Code Description Data Harriett rce(s) Supporting Document(s ) ID Date Data Source [id number] 04/28/2019 02:10:46 PM [facility] NUTRITIONNow intubated for resp failureR eceiving EN via PEG port; may require surgical placement of jejunostomy per MD notes.Tolerating Osmolite 1.5@25mL/hr with 30 mL prostat tid.Diarrhea; c.diff negative .Skin: Wound to scrotum (per flowsheet); wound care consult pending.Edema: 3+ BU& LELabs and medications reviewed. Receiving sensipar, lasix, propofol.Today's weight 65kg, up 6.8kg from initial bedscale weight with new edema; IVFd/c'dDx remains same: increased protein and energy needs (related to critical illnessand impaired skin int egrity).Recalculate needs 2* critical illness using initial bedscale weight 58k-30 kcal/k-9796vctr7.25-2gm prot/k-130gm sksp9jC fluid/kcal: 1450-1950mL fluidSuggest increasing Osmolite 1.5 by 10mL as tolerated to goal of 45mL/hr ubvb49kF prostat tid (1920kcal, 113gm prot, 220gm CHO, 53gm fat, 823mL free H2O).Add 100mL free H2O Q 3hr if feasible given edema and need for lasix.Monitor GI tolerance to E N.Monitor volume status.Adjust EN as appropriate.Monitor propofol administrat ion for possible adjustment in kcal provision.Jo Espinoza RD Name Value Range Interpretation Code Description Data [facility] rce(s) Supporting Document(s ) ID Date Data Source [id number] 04/28/2019 02:10:41 PM [facility] Problem: Nutrition DeficitGoal: *Optimiz e nutritional statusDescriptionPt meeting 80% nutrient needs within 3-7 daysOutcome: N ot Progressing Towards GoalOsmolite 1.5 running at 25mL/hr.Suggest increasing Os molite 1.5 by 10mL as tolerated to goal of 45mL/hr uxxh25rQ prostat tid. Add 100mL free H2O Q 3hr if feasible given edema and need forlasix. Name Value Range Interpretation Code Description Data Harriett rce(s) Supporting Document(s ) ID Date Data Source [id number] 04/28/2019 01:18:34 PM EST [facility] GI PROGRESS NOTENAME: Evelio Shukla hbeinDOB: 1950MRN: [id number]:C diff negative, + loose stools.Appears to be fed now via J-tube port and it flushes without problems for now.Objective:abd s oftVITALS:Last 24hrs VS reviewed since prior progress note. Most recent are:Visit Vit alsBP (!) 158/103Pulse 80Temp 97.5 F (36.4 C)Resp 23Ht 5' 2" (1.575 m)Wt 62.7 kg (1 38 lb 3.7 oz)SpO2 98%BMI 25.28 kg/m Intake/Output Summary (Last 24 hours) at 04/28/2019 1316Last data filed at 04/28/2019 1030Gross per 24 hourIntake 2494.7 mlOut put 650 mlNet 1844.7 mlPHYSICAL EXAM:General: Alert, in no acute distressHEENT: Anicte rodger sclerae.Lungs: CTA Bilaterally.Heart: Regular rhythm,Abdo men: Soft, Non distended, Non tender. (+)Bowel sounds, no HSMExtremities: No c /c/eNeurologic: CN 2-12 gi,No acute neurological distressPsych: No insight . Not anxious nor agitated.Lab Data Reviewed:Recent Labs 04/27WBC 11.1* 7.7HGB 8.8* 9.6*HCT 27.6* 30.0*PLT 524* 542*Recent Labs 623 04/27/2003NA -- 139 139 -- 142K -- 3.7 3.9 -- 3.6CL -- 107 106 -- 108*CO2 29* 28 27 < > 29BUN -- 35* 35* -- 33*CREA -- 1.98* 2.29* -- 2.05*GLU -- 149* 186* -- 91PHOS -- -- 3.3 -- 2.2*CA -- 9 .2 9.1 -- 8.9 < > = values in this interval not displayed.Recent Labs 04/27/200320SGOT 9* --AP 63 --TP 5.4* --ALB 1.5* 1.5*GLOB 3.9 -- Patien t Active Problem ListDiagnosis Code Parae sophageal hiatal hernia K44.9 COPD (chronic obstructive pulmonary disease) ([facility]) J44 .9 Acute respiratory distress R06.03 Pneumonia J18.9 COPD exacerbation ([facility]) J44.1 Sepsis due to undetermined organism ([facility]) A41.9 Generalized anxiety disorde r F41.1 Acute respiratory failure with hypoxia ([facility]) J96.01 Pneumonia involvin g right lung J18.9 Hyponatremia E87.1 SOB (shortness of breath) R06.02 Pressure i njury of right heel, stage [address]) L89.612 Leg wound, right, initial encounter S81. 801A Acute hypoxemic respiratory failure (HCC) J96.01 COPD with acute exacerbati on ([facility]) J44.1 Acute on chronic respiratory failure with hypoxia and hypercapnia (HC C)J96.21, J96.22 Scrotal rash Z18Nijnwzfcck: Asp PNA Problomatic J-tube over PEG - appears to be working again - ? Kink resolved?Plan: KUB x-ray Cont TF via c entral J-tube portion.Signed By: Diogo Collins MD 04/28/2019 1:16 PM Name Value Range Interpretation Code Description Data Harriett rce(s) Supporting Document(s ) ID Date Data Source [id number] 04/28/2019 11:45:26 AM EST [facility] ID Progress Note1/14/2020Subjective:PT t ransferred to ICU for respiratory failure s/p intubation, Pt havingdiarrhea, repeat C. Diff test was NEGATIVENo new eventEEG did not show any seizureAfebrileUS of UE and LE negative for DVTIntubated.Blood cx remain negativeResp cx with moderate GNR'sObjec tive:Review of SystemsPatient is unable to provideVitals:Patient Vitals for the pas t 24 hrs: BP Temp Pulse Resp QlE66504/28/19 1000 139/74 - 81 20 94 %04/28/19 0900 14 9/76 - 72 18 97 %04/28/19 0839 - - (!) 55 18 97 %04/28/19 0800 145/76 97 F (36.1 C) 66 18 95 %04/28/19 0700 139/64 - (!) 57 18 94 %04/28/19 0600 124/67 - 64 18 100 % 0500 122/65 - 70 18 99 %04/28/19 0400 119/71 97.6 F (36.4 C) 64 18 97 %04/28 0300 95/61 - 68 18 94 %04/28/19 0248 - - 66 15 96 %04/28/19 0200 127/64 - 83 25 9 8 %04/28/19 0100 138/67 - 73 18 91 %04/28/19 0000 132/66 98.4 F (36.9 C) 74 18 94 % 04/27/19 2300 113/51 - 73 18 94 %04/27/19 2200 125/59 - 88 21 98 %04/27/19 2150 - - 87 18 97 %04/27/19 2100 139/72 - 83 19 96 %04/27/19 2000 125/71 97.2 F (36.2 C) 88 12 99 %04/27/19 1900 121/67 - 90 18 100 %04/27/19 1836 - - 92 20 100 %04/27/19 1 800 133/66 - 95 18 100 %04/27/19 1700 141/56 - (!) 101 18 100 %04/27/19 1600 121/66 9 7 F (36.1 C) (!) 103 14 99 %04/27/19 1509 - - (!) 102 22 98 %04/27/19 1500 114/61 - 89 18 98 %04/27/19 1400 135/73 - 94 21 96 %04/27/19 1300 136/59 - 98 20 99 % 1200 128/72 97 F (36.1 C) 96 19 98 %04/27/19 1141 - - 93 19 98 %Tmax: Temp (24hrs), Av.4 F (36.3 C), Min:97 F (36.1 C), Max:98.4 F(36.9 C)Physical Exam:General: Lethargic on BiPAP,no distressEyes: Conjunctivae/corneas sudhakar r. PERRLNeck: Supple, symmetrical, trachea midline, no adenopathyLungs: bilatera l breath sounds with basal crackles..Heart: Regular rate and rhythm, S1, S2 normal, no murmurAbdomen: Soft, non-tender. Bowel sounds normal. No masses, Noorganomegal y.peg+Back: Symmetric, no curvature. ROM normal. No CVA tenderness.Extremities: N o cyanosis ,chronic lymphedema .Pulses: 2+ and symmetric all extremities.Skin: Skin color, texture, turgor normal. No rashes or lesionsLymph nodes: Cervical, supraclavi cular, and axillary nodes normal.Current Facility-Administered MedicationsMedicat ion Dose Route Frequency vits A and D-white pet-lanolin (A&D) ointment Topical PRN furosemide (LASIX) injection 20 mg 20 mg IntraVENous BID methylPREDNISolone (PF) (SOLU-MEDROL) injection 40 mg 40 mg IntraVENous Q12H vancomycin 50 mg/mL or al solution (compounded) 125 mg 125 mg Per G Tube Q6H meropenem (MERREM) 500 mg in 0 .9% sodium chloride (MBP/ADV) 50 mL MBP 0.5 gIntraVENous Q12H lamoTRIgine (LaMICtal ) tablet 100 mg 100 mg Per G Tube QPM LORazepam (ATIVAN) tablet 1 mg 1 mg Per G Tube QHS lamoTRIgine (LaMICtal) tablet 50 mg 50 mg Per G Tube DAILY sodium chlor wade (NS) flush 5-40 mL 5-40 mL IntraVENous PRN pantoprazole (PROTONIX) 40 mg in 0. 9% sodium chloride 10 mL injection 40 mgIntraVENous DAILY acetaminophen (TYLE NOL) tablet 650 mg 650 mg Oral Q6H PRN HYDROcodone-acetaminophen (NORCO) 5-325 mg per tablet 1 Tab 1 Tab Oral Q4HPRN ondansetron (ZOFRAN) injection 4 mg 4 m g IntraVENous Q6H PRN magnesium hydroxide (MILK OF MAGNESIA) 400 mg/5 mL oral susp ension 30 mL 30mL Oral DAILY PRN propofol (DIPRIVAN) 10 mg/mL infusion 0-50 mcg/k g/min IntraVENous TITRATE albuterol-ipratropium (DUO-NEB) 2.5 MG-0 .5 MG/3 ML 3 mL Nebulization Q6HWA RT acetylcysteine (MUCOMYST) 100 mg/mL (10 %) nebulizer solution 400 mg 4 mLInhalation TID RT miconazole (MICOTIN) 2 % cream Topical BID budesonide (PULMICORT) 500 mcg/2 ml nebulizer suspension 500 mcg N ebulizationBID RT cinacalcet (SENSIPAR) tablet 60 mg 60 mg Oral DAILY heparin (porcine) injection 5,000 Units 5,000 Units SubCUTAneous W44VYelc:Recent Labs 04/27/200304/25/201110WBC 11.1* 7.7 9.2 10.1HGB 8. 8* 9.6* 8.8* 9.2*PLT 524* 542* 502* 503*BUN 35* 35* 33* --CREA 1.98* 2.29* 2.05* - -SGOT 9* -- -- --AP 63 -- -- --TBILI 0.2 -- -- --Cultures:Lab Re sultsComponent Value Date/Time Culture result: (A) 04/26/2019 05:00 PM MODERAT E GRAM NEGATIVE RODS IDENTIFICATION AND SUSCEPTIBILITY TO FOLLOW Culture result: NO GROWTH 3 DAYS 04/25/2019 12:10 PM Culture result: NO GROWTH 3 DAYS 04/25/2019 12:0 5 PMRadiology:Xr Chest Sngl VResult Date: 04/28/2019AP portable film of the chest c linical indication pneumonia Study is compared toprevious examination of 2019. Again noted is endotracheal tube insitu, the tip is above the tian. Ext ensive bibasal haziness is notedinfiltrate versus congestive change. Also noted is marked prominence topulmonary vasculature. Heart size is difficult to evaluate. The re may be smallbilateral pleural effusions.IMPRESSION: 1. Endotracheal tu be in satisfactory position. 2. Extensive bibasalhaziness. 3. Prominence to pulmon connor vascular markings. 4. Possible bilateralsmall pleural effusionsAssessme nt: Staph sepsis. Aspiration pneumonia. Acute COPD exacerbation. Acute respirat ory failure. Pleural effusion. Dysphagia Fever R/o C. difficile Plan:1. Continue meropenem2. Continue oral vancomycin prophylaxis dose3. Follow GNR's in sputu m4. Discontinue contact isolation5. Follow blood and urine culturesMahlet Mireya Gomezva [facility] [id number] AM Name Value Range Interpretation Code Description Data Harriett rce(s) Supporting Document(s ) ID Date Data Source [id number] 04/28/2019 09:42:09 AM [facility] Progress Note, renal and medicineEmanuel Ymirbdkvg41 y.o.Admit Date: 04/19/2019Subjective:Patient transferred t o ccu due to resp failurePt intubated, off sedation, awake, open eyes , follow simp le commands.Rectal tube in placeFoley catheter in place with good UOPEG in jocelyn ce with UO 460ml in 24hReview of systems not obtained due to patient factors.Objectiv e:Visit VitalsBP 149/76Pulse 72Temp 97 F (36.1 C)Resp 18Ht 5' 2" (1.575 m)Wt 62. 7 kg (138 lb 3.7 oz)SpO2 97%BMI 25.28 kg/m Intake/Output Summary (Last 24 hours) at 04/28/2019 0937Last data filed at 04/28/2019 0915Gross per 24 hourIntake 2124.7 mlOut put 650 mlNet 1474.7 mlCurrent Facility-Administered MedicationsMedicat ion Dose Route Frequency Provider Last Rate Last Dose vits A and D-white pet-lanoli n (A&D) ointment Topical PRN Mili Hills DO vancomycin 50 mg/mL oral cha ution (compounded) 125 mg 125 mg Per G Tube [id number] severino MD 125 mg at 0511 meropenem (MERREM) 500 mg in 0.9% sodium chloride (MBP/ADV) 50 mL MBP 0.5 gIntraVENous Q12H Monica Gomez MD 16.7 mL/hr at 04/28/19 0915 500 mg at04/28/19 0915 lamoTRIgine (LaMICtal) tablet 100 mg 100 mg Per G Tube QPM Roberto Burgos MD100 mg at 04/27/19 1738 methylPREDNISolone (PF) (SOLU-MEDROL) injection 40 mg 40 mg Int raVENous E1LFtubacKrystian helms MD 40 mg at 04/28/19 0516 LORazepam (ATIVAN) tablet 1 mg 1 mg Per G Tube QHS Mili Hills DO 1 mgat 04/27/19 2116 lamoTRIgine ( LaMICtal) tablet 50 mg 50 mg Per G Tube DAILY Roberto Burgos MD50 mg at 04/28/19 0 915 sodium chloride (NS) flush 5-40 mL 5-40 mL IntraVENous PRN Krystian Monae MD de xtrose 5 % - 0.45% NaCl infusion 50 mL/hr IntraVENous CONTINUOUS Krystian Monae MD 50 mL/hr at 04/28/19 0917 50 mL/hr at 04/28/19 0917 pantoprazole (PROTONIX) 4 0 mg in 0.9% sodium chloride 10 mL injection 40 mgIntraVENous DAILY Krystian Monae MD 40 mg at 04/28/19 0915 acetaminophen (TYLENOL) tablet 650 mg 650 mg Oral Q6H PRN Krystian Monae MD650 mg at 04/26/19 0453 HYDROcodone-acetaminophen (NORCO) 5-325 mg per tablet 1 Tab 1 Tab Oral Q4HPRN Krytsian Monae MD 1 Tab at 04/27/19 23 19 ondansetron (ZOFRAN) injection 4 mg 4 mg IntraVENous Q6H PRN Krystian Monae MD ma gnesium hydroxide (MILK OF MAGNESIA) 400 mg/5 mL oral suspension 30 mL 30mL Oral KYLEIGH Y PRN Krystian Monae MD propofol (DIPRIVAN) 10 mg/mL infusion 0-50 mcg/kg/min Intra VENous TITRATESKrystian helms MD 8.3 mL/hr at 04/28/19 0917 25 mcg/kg/min at 04/28/19 0917 albuterol-ipratropium (DUO-NEB) 2.5 MG-0.5 MG/3 ML 3 mL Nebulization Q6HWA RTMili Hills, 3 mL at 04/28/19 0838 acetylcysteine (MUCOMYST) 100 mg/mL (10 %) nebulizer solution 400 mg 4 mLInhalation TID RT Mili Hills DO 400 mg at 0 04/28/19 0838 miconazole (MICOTIN) 2 % cream Topical BID Zuly Lacey, OLIVER ganton wade (PULMICORT) 500 mcg/2 ml nebulizer suspension 500 mcg NebulizationBID RT S Krystian helms MD 500 mcg at 04/28/19 0838 cinacalcet (SENSIPAR) tablet 60 mg 60 m g Oral DAILY Mili Hills DO 60mg at 04/28/19 0915 heparin (porcine) injecti on 5,000 Units 5,000 Units SubCUTAneous Q12H Mili Hills DO 5,000 Units at 04/15 08/02 0517Physical Exam:Physical Exam:General: intubatedNeck: SuppleLungs: Scattered rhonchiHeart: S1, L2Ychpwed: Soft, non-tender. Bowel sounds normal. No mass es, No organomegaly.Extremities: EdemaData Review:CBC w/DiffRecent Labs 04/28/2002 29 04/27/200320 04/26/200330WBC 11.1* 7.7 9.2RBC 2.90* 3.15* 2.89*HGB 8.8* 9.6* 8. 8*HCT 27.6* 30.0* 27.7*MCV 95.2* 95.2* 95.8*MCH 30.3 30.5 30.4MCHC 31.9 32.0 31 .8RDW 17.8* 17.9* 17.9* Recent Labs 04/28/200229 04/25/2011609606UYKRX 1* -- 13*EOS 0 -- 1BASOS 0 -- 0RDW 17.8* < > 18.0* < > = values in this interval not displayed. Lab ResultsComponent Value Date/Time PLATELET 524 (H) 04/28/2019 03 :29 AMComprehensive Metabolic ProfileRecent Labs 04/28/200204/27/19 0420 04/26/200330NA -- 139 139 -- 142K -- 3.7 3.9 -- 3.6CL -- 107 106 -- 108*CO2 29* 28 27 < > 29BUN -- 35* 35* -- 33*CREA -- 1.98* 2.29* -- 2.05* < > = values in this interval not displayed. Recent Labs 04/27/2003 0 04/26/200330CA 9.2 9.1 8.9PHOS -- 3.3 2.2*ALB 1.5* 1.5* 1.4*TP 5.4* -- --SG OT 9* -- --TBILI 0.2 -- --X-RAY (Last 24 Hours)Xr Chest Sngl VResult Date: 04/15AP portable film of the chest clinical indication pneumonia Study is compared t oprevious examination of April 25, 2019. Again noted is endotracheal tube insitu, the tip is above the tian. Extensive bibasal haziness is notedinfiltrate vers us congestive change. Also noted is marked prominence topulmonary vasculature. Hear t size is difficult to evaluate. There may be smallbilateral pleural effusions.IMPRESS ION: 1. Endotracheal tube in satisfactory position. 2. Extensive bibasalhaziness. 3. Prominence to pulmonary vascular markings. 4. Possible bilateralsmall pleural effus ionsIMPRESSION:Patient Active Problem ListDiagnosis Code Paraesophageal hiata l hernia K44.9 COPD (chronic obstructive pulmonary disease) ([facility]) J44.9 Acute re spiratory distress R06.03 Pneumonia J18.9 COPD exacerbation ([facility]) J44.1 Sepsis du e to undetermined organism ([facility]) A41.9 Generalized anxiety disorder F41.1 Acut e respiratory failure with hypoxia ([facility]) J96.01 Pneumonia involving right lung J 18.9 Hyponatremia E87.1 SOB (shortness of breath) R06.02 Pressure injury of right heel, stage [address]) L89.612 Leg wound, right, initial encounter S81.801A Acute hypoxemic respiratory failure (HCC) J96.01 COPD with acute exacerbation ([facility]) J44.1 Acute on chronic respiratory failure with hypoxia and hypercapnia (HCC)J96.21, J96 .22 Scrotal rash F24xhksgjusl vascular congestionBilateral pleural effusionPLAN : D/c ivf Lasix Continue merem 500 mg BID vanco oral, no need to check level imp roving kidney function Monitor labs Check urine studies Cont abx Further recomme ndations will be based on the patient's response to recommendedtreatment and res ults of the investigation ordered.Oralia Frankel MD04/28/201912:59 PM Name Value Range Interpretation Code Description Data [facility] Supporting Document(s ) ID Date Data Source [id number] 04/28/2019 09:25:17 AM EST [facility] AP portable film of the chest clinical i ndication pneumoniaStudy is compared to previous examination of April 25, 2019 . Again noted isendotracheal tube in situ, the tip is above the tian. Extensive b ibasalhaziness is noted infiltrate versus congestive change. Also noted is markedp rominence to pulmonary vasculature. Heart size is difficult to evaluate. Theremay be small bilateral pleural effusions.IMPRESSION:1. Endotracheal tub e in satisfactory position.2. Extensive bibasal haziness.3. Prominence to pulmon connor vascular markings.4. Possible bilateral small pleural effusions Signing date/patria e: 04/28/2019 9:25 AMSigned by: ROSEANNE SÁNCHEZ Name Value Range Interpretation Code Description Data [facility] rce(s) Supporting Document(s ) ID Date Data Source [id number] 04/28/2019 09:06:15 AM EST [facility] JERMAINE [address]LLKMGRN: EVELIO CARLINMRN: [id number]: 1ACCT#: [id number] DATE: 04/19/2019LONG TERM MONITORING VIDEO EEG REFERRING PHYSICIAN: Alka Galeas MD.TECHNOLOGIST: Nel Puente ISTORY: The patient is a 68-year-old man with a history of staticencephalopathy, presenting with abnormal movements concerning for seizures.MEDICATIONS: None.START OF RECORDIN04/26/2019 at 09:24 a.m.END OF RECORDIN04/27/2019 at 04:08 p.m.KEVIN HNIQUE: This is a 21-channel long-term monitoring video EEG recording. Thereco rding was done in accordance with the International 10-20 System ofelectrode p lacement. EEG interpretation was done using both the referential andbipolar montages . Digital analysis was performed employing an artificial neuralForce Therapeuticswork program with parameterization and statistical analysis. Analysis toolsutilized include compresse d spectral array (CSA), XL spike detector, and XLevent detector.BACKGROUND ACTIVITY : The awake record is well organized and symmetric andconsists primarily of alpha with admixed beta and excess theta frequencies.An 8 to 8.5 Hz posterior dom inant rhythm is seen that attenuates with eyeopening.There was mild generalized ba ckground slowing.There was no clear focal slowing.ACTIVATION TECHNIQUES: Photic s timulation and hyperventilation were notperformed.SLEEP: During drowsiness, there is mild attenuation and slowing of thebackground rhythm. There is normal s leep seen including symmetric vertex waves,sleep spindles, and K-complexes.OT HER ACTIVITY: There were no clear epileptiform discharges and no seizures orclinical events recorded.DIGITAL ANALYSIS: Variable spectral pattern without signif icant [id number]. Spikes were artifact in nature.IMPRESSION: This is an abnormal long-term monitoring video electroencephalogramin the awake and asl eep states due to mild diffuse or multifocal cerebraldysfunction. ALKA GALEAS, ROSEMARYD: #04/27/2019 9:09:30/SS [id number] #: [id number] / [id number] Name Value Range Interpretation Code Description Data Harriett rce(s) Supporting Document(s ) ID Date Data Source [id number] 04/28/2019 07:33:19 AM EST [facility] - [facility] Bedside and Verbal shift change report carol Ortiz RN (oncoming nurse) Danielle (offgoing nurse). Report included the fo llowing information SBAR,Kardex, Procedure Summary, Intake/Output, MAR, Accordion, Recent Results, MedRec Status and Cardiac Rhythm nsr. Name Value Range Interpretation Code Description Data Harriett rce(s) Supporting Document(s ) ID Date Data Source [id number] 04/28/2019 06:23:55 AM EST [facility] - [facility] Name Value Range Interpretation Description Data Sup porting Code Source(s) Document(s ) pH of Arterial 7.46 7.35-7.4 Above high normal [facility] - Good blood [address] [place] [address] Carbon dioxide 39 mmHg 32-48 [facility] - Good [Partial Taoist pressure] in Hospital Arterial blood Oxygen 111 mmHg 83-108 Above high normal [facility] - Good [Partial Taoist pressure] in Hospital Arterial blood Carbon 29 19-24 Above high normal [facility] - Good dioxide, total mmol/L Taoist [Moles/volume] [facility] in Arterial blood Bicarbonate 28 21-28 [facility] - Good [Moles/volume] mmol/L Taoist in Arterial Hospital blood Oxygen 99 % 94-98 Above high normal [facility] - Good saturation in Taoist Blood [facility] Base excess in 3.7 0-3 Above high normal [facility] - Good Arterial blood mmol/L Taoist by calculation Hospital Body site [facility] - Good [facility] Arterial [facility] - Good patency Wrist Taoist artery --pre Hospital arterial puncture Oxygen gas [facility] - Good flow Oxygen Taoist delivery [facility] system Oxygen/Inspire 40.0 % [facility] - Good d gas Taoist Respiratory [facility] system --on ventilator Ventilation [facility] - Good mode Taoist [Identifier] [facility] Ventilator PEEP 5 [facility] - Good Respiratory Taoist system Hospital Tidal volume 400 [facility] - Good setting Taoist Ventilator Hospital Respiratory 18 [facility] - Good rate [facility] Service [address]903 [facility] - Good comment [facility] ID Date Data Source [id number] 04/28/2019 06:03:53 AM EST [facility] Name Value Range Interpretation Description Data Sup porting Code Source(s) Document(s ) Leukocytes 11.1 4.8-10.6 Above high normal [facility] - [#/volume] in K/uL Good Blood by Taoist Automated count Hospital Erythrocytes 2.90 4.70-6.0 Below low normal [facility] - [#/volume] in M/uL 0 Good Blood by [facility] count [facility] Hemoglobin 8.8 g/dL 14.0-18. Below low normal [facility] - [Mass/volume] in 0 Good Blood [facility] Hematocrit 27.6 % 42.0-52. Below low normal [facility] - [Volume 0 Good Fraction] of Taoist Blood by Hospital Automated count Erythrocyte mean 95.2 FL 81.0-94. Above high normal [facility] - corpuscular 0 Good volume [Entitic Taoist volume] by Hospital Automated count Erythrocyte mean 30.3 PG 27.0-35. [facility] - corpuscular 0 Good hemoglobin Taoist [Entitic mass] Hospital by Automated count Erythrocyte mean 31.9 30.7-37. [facility] - corpuscular g/dL 3 Good hemoglobin [facility] [Mass/volume] by Automated count Erythrocyte 17.8 % 11.5-14. Above high normal [facility] - distribution 0 Good width [Ratio] by Taoist Automated count [facility] Platelets 524 K/uL 130-400 Above high normal [facility] - [#/volume] in [facility] Blood by Taoist Automated count [facility] Platelet mean 9.5 FL 9.2-11.8 [facility] - volume [Entitic Good volume] in Blood Taoist by Automated Hospital count Nucleated 0.0 PER 0 [facility] - erythrocytes/100 100 WBC Good leukocytes Taoist [Ratio] in Blood [facility] Nucleated 0.00 0.0-0.01 [facility] - erythrocytes K/uL Good [#/volume] in [facility] Segmented 92 % 48.0-72. Above high normal [facility] - neutrophils/100 0 Good leukocytes in [facility] Lymphocytes/100 6 % 18.0-40. Below low normal [facility] - leukocytes in 0 [facility] Blood [facility] Monocytes/100 1 % 2.0-12.0 Below low normal [facility] - leukocytes in Good Blood [facility] Eosinophils/100 0 % 0.0-7.0 [facility] - leukocytes in [facility] Basophils/100 0 % 0.0-3.0 [facility] - leukocytes in [facility] Immature 1 % 0-0.5 Above high normal [facility] - granulocytes/100 Good leukocytes in [facility] by Hospital Automated count Segmented 10.3 2.3-7.6 Above high normal [facility] - neutrophils K/UL Good [#/volume] in [facility] Lymphocytes 0.7 K/UL 0.9-4.2 Below low normal [facility] - [#/volume] in [facility] Monocytes 0.1 K/UL 0.1-1.7 [facility] - [#/volume] in [facility] Eosinophils 0.0 K/UL 0.0-1.0 [facility] - [#/volume] in [facility] Basophils 0.0 K/UL 0.0-0.4 [facility] - [#/volume] in [facility] Immature 0.1 K/UL 0.0-0.17 [facility] - granulocytes Good [#/volume] in [facility] by Hospital Automated count Differential [facility] - cell count [facility] ID Date Data Source [id number] 04/28/2019 05:41:52 AM EST [facility] - [facility] Name Value Range Interpretation Description Data Sup porting Code Source(s) Document(s ) Sodium 139 136-145 [facility] - [Moles/volume] in mmol/L [facility] or [facility] Potassium 3.7 3.5-5.1 [facility] - [Moles/volume] in mmol/L [facility] Serum [facility] Chloride 107 98-107 [facility] - [Moles/volume] in mmol/L [facility] Carbon dioxide, 28 21-32 [facility] - total mmol/L Good [Moles/volume] in [facility] or [facility] Anion gap in Serum 7 10-20 Below low normal [facility] - or Plasma mmol/L [facility] Glucose 149 74-106 Above high [facility] - [Mass/volume] in mg/dL normal [facility] Hospital Urea nitrogen 35 7-18 Above high [facility] - [Mass/volume] in mg/dL normal Good Serum or Plasma [facility] Creatinine 1.98 0.70-1. Above high [facility] - [Mass/volume] in mg/dL 30 normal Good Serum or Plasma [facility] Glomerular 43 >60 Below low normal [facility] - filtration ml/min/ Good rate/1.73 sq M 1.73m2 Taoist predicted among Hospital blacks [Volume Rate/Area] in Serum or Plasma by Creatinine-based formula (MDRD) Glomerular 36 >60 Below low normal [facility] - filtration ml/min/ Good rate/1.73 sq M 1.73m2 Taoist predicted among Hospital non-blacks [Volume Rate/Area] in Serum or Plasma by Creatinine-based formula (MDRD) Calcium 9.2 8.5-10. [facility] - [Mass/volume] in mg/dL 1 Good Serum or Plasma [facility] Bilirubin.total 0.2 0.2-1.0 [facility] - [Mass/volume] in mg/dL Good Serum or Plasma [facility] Alanine 8 U/L 13-61 Below low normal [facility] - aminotransferase Good [Enzymatic Taoist activity/volume] in Hospital Serum or Plasma Aspartate 9 U/L 15-37 Below low normal [facility] - aminotransferase Good [Enzymatic Taoist activity/volume] in Hospital Serum or Plasma by With P-5'-P Alkaline 63 U/L 45-117 [facility] - phosphatase Good [Enzymatic Taoist activity/volume] in Hospital Serum or Plasma Protein 5.4 6.4-8.2 Below low normal [facility] - [Mass/volume] in g/dL Good Serum or Plasma [facility] Albumin 1.5 3.5-4.7 Below low normal [facility] - [Mass/volume] in g/dL Good Serum or Plasma by Taoist Bromocresol [facility] (BCP) dye binding method Globulin 3.9 1.7-4.7 [facility] - [Mass/volume] in g/dL Good Serum by [facility] Albumin/Globulin 0.4 0.7-2.8 Below low normal [facility] - [Mass Ratio] in Good Serum or Plasma [facility] ID Date Data Source [id number] 04/28/2019 05:41:52 AM EST [facility] Good [facility] Name Value Range Interpretation Description Data Sup porting Code Source(s) Document(s ) Magnesium 2.5 mg/dL 1.6-2.6 [facility] [Mass/volume] Taoist in Serum or Hospital Plasma ID Date Data Source [id number] 04/27/2019 05:16:54 PM EST [facility] Progress NotePatient: Evelio Carlin Sex: male DOA: 04/19/2019Date of : 1950 A ge: 68 y.o. :[id number]:Reyes Carlin is 68 y.o. male s/p intubation for Acute Respiratory Failureand minimal responsiveness. He is sedated with propofol.Pt is passing diarrhea stools f or about two days. Stools for c diff was sent andpending.S/p placement of rectal tube and reinsertion of lozano cath.Patient with new onset tremors and due to his minima l responsiveness,Neuro wasconsulted to Rule out seizures. Seen by neuro, Lamictal 5 0 mg was increased to100 mg BID.EEG is currently in progress.BUN/Creat slightly elevated today at 33/2.05 <---28/1.82.IV vancomycin on hold for supra therapeutic levels.The patient had presented from [facility] with fever, hypoxia, O2 SAT 83 %,hypoten sive, tachypneic and incomplete bladder emptying. On arrival to ED,he was un responsive, placed on BIPAP, lozano cath inserted and was found withpositive Stap h Sepsis. The following days he became more awake and alert. Hewas on O2 nasal canu la and prn BIPAP. Surgery was consulted for possibleplacement of jejunostomy, due to pt 's recurrent aspirations and hospitaladmissions.RN reporting leaking from mid line catheter and pt with shaking.Chest xr showing midline cath pr ojecting over the right axilla. Mild congestivefailure with interstitial todd a and small b/l pl effusions.The pt was seen later in the evening with tremors/shakin g to b/l upperextremities and min responsiveness. IM ativan 1mg was order ed.Pt's baseline mental status is nonverbal, but awake and alert.He has medical istor y of Dysphagia, recurrent aspiration pneumonia, s/p g/tplacement on 11/17/18 an d conversion to PEJ on 02/07/19, hyperlipidemia,hyperparathyroid unspecif ied, seizure, large hiatal hernia, anxiety disorder,personal history of pulmonary e mbolus, COPD, GERD, SChizophrenia unspecified,Kyphosis, Parkinson disease, Severe intellectual disabilities, contractures, andgeneralized muscle weak ness.On 03/26/19 s/p positioning of jejeunal feeding tube and endoclipping. Therewere leaking oth the TF, the tube was found with a crack defect.On 04/01/19 he had endosc opic placement of jtube over PEG and removal ofdefective tube, the jtube was found ki nked on KUB with a large voulme of stoolwithin the distal colon/rectum. Pt was sandhya TF via the peg port and discharge tosnf with further procedures as an out patient.On 04/16/2019 pt had an ambulatory procedure with gi, per the note, multipl eunsuccessful attempts to place PEJ. GI is suggesting surgical placement for ajejun ostomy. . 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 Neck: Supple, symmetrical, no adenopathy, no carotid bruit and no JVD.Lungs: Neo ar to auscultation bilaterally. No Wheezing or Rhonchi. No rales.Chest wall: No Acc essory muscle use.Heart: Regular rate and rhythm, no murmur, or rub.Abdomen: Po sitiveperi peg hernia, peg in place, non-tender. Not distended.Bowel sounds n ormal.Extremities: Positive swelling b/l upper extremites and left leg, positivec ontractures, No cyanosis. . No clubbingSkin: Warm and dry. Positive scrotal rashe s Not JaundicedLymph nodes: Cervical, supraclavicular normal.Neurologic: Sedated.Intake and Output:Current Shift: 04/26 1900 - 04/27 0700In: -Out: 40 [Urine:40]Last three shifts: 04/25 07 - 04/26 1900In: 3610.1 [I.V.:3610.1]Out: 830 [Urine:830]Lab/Data Reviewed:Recent Days:Recent Labs 210WBC 9.2 10.1HGB 8.8* 9.2*HCT 27.7* 29.8*PLT 502* 503*Recent Labs 626 04/25/202104/24/200535NA -- 142 -- -- 143 14 1K -- 3.6 -- -- 3.4* 3.3*CL -- 108* -- -- 107 105CO2 31* 29 35* < > 34* 31GLU -- 91 -- -- 129* 118*BUN -- 33* -- -- 28* 22*CREA -- 2.05* -- -- 1.82* 1.62*CA -- 8.9 -- -- 9.0 9.2MG -- 2.5 -- -- -- --PHOS - - 2.2* -- -- 2.6 1.8*ALB -- 1.4* -- -- 1.5* 1.6* < > = values in this inter seema not displayed.Recent Labs 214 04/25/201720PH 7.46* 7.41 7 .46*PCO2 41 52* 46PO2 96 114* 118*HCO3 29* 33* 33*FIO2 50.0 60.0 45.0Xr Chest Sngl VResult Date: 04/25/2019CHEST one view HISTORY: Pneumonia. COPD. COMPARISON: 04/23/2019. There is a poorinspiratory effort which compromises this interpretation. T he patient's chinalso obscures the right upper lobe. A repeat study is suggested. There has beenno change of small bilateral pleural effusions.There is no gross evid ence ofcongestion, infiltrates, or a left pneumothorax.IMPRESSION: No significant change. Limited study. Poor inspiratory effort.Xr Abd (kub)Result Date: 04/05/20 19XR ABD (KUB) CLINICAL INDICATION PROVIDED:. "assess J tube position."TECHNIQUE.: An initial AP image of the abdomen was acquired. Additional APimages of the abdomen were acquired after the hand-injection of a small volumeof radiopaque contrast by the siri ent's nurse into the patient's J-tube.COMPARISON:. 04/02/2019. FINDINGS :. The tip of the 2 projects over the midabdomen, at the level of the mid jeju num. Post injection images demonstrateopacification of loops of mid small bowel. There is no extraluminal contrastappreciated. A large volume of s tool projects over the distal colon/rectum.Densities project over the lower lungs, right greater than left. Considercorrelation with chest radiograp hs.IMPRESSION:. Injected radiopaque contrast appears to be contained within thelumen of the mid small bowel. There is no evidence of extraluminal contrast.Additional find ings and recommendations as above.Xr Abd (kub)Result Date: 04/02/2019KUB 2 view(s ) History: Evaluate J-tube. Comparison: 11/22/2018. There is a newJ-tube overlyin g the mid abdomen with kinking involving its superior andinferior portion overlying t he mid abdomen. These findings were discussed withmale nurse Jacquelyn at 3:40 PM today.. Th ere is mild ileus of the small bowel butthere is no evidence of obstruction, radiopaqu e gallstones, or left kidneystones or an appendicolith. There are possible right kidney stones. Absence ofan appendicolith it does not exclude appendicitis. CT is sug gested if clinicallyindicated. Old rib fractures are noted.IMPRESSION: Kinking of J-tube in 2 locations. Possible right kidney stonesIleus.Ir Picc Insert Wo Por t Over 5 Years Wo ImgResult Date: 04/01/2019IR PICC INSERT WO PORT OVER 5 YEARS WO IMG CLINICAL INDICATION PROVIDED.:"midline." Medical necess ity for vascular access. PROCEDURE: After beinginformed of the risks, benefits, po tential alternatives to the procedure theinformed consent was obtained. The pa tient was placed on the table the supineposition. The right upper extremit y was prepped and draped in the normal sterilefashion. Ultrasound interrogation was performed of the right upper extremity.Images were obtained. A locat ion was chosen over the right brachial vein abovethe antecubital fossa. Lidocaine so lution was used to anesthetize the scan.Access was gained under ultrasound guidance using a 21-gauge thin-walled needle.A 0.018 a wire was advanced under fluoroscopic guidance into the right axillaryvein. The needle was exchanged o lani a wire for the midline dilator and sheath.The dilator and wire were removed leaving the sheath in situ. Through the sheatha 5 Congolese double-lumen 20 cm midl ine catheter was placed. The peel-away sheathwas removed. The catheter was sewn into position using 2-0 silk sutures. Thepatient tolerated the procedure. Ther e were no complications at the time of theprocedure. FINDINGS: Ultrasound inter rogation revealed a widely patent brachialvein above the antecubital fossa . A 5 Congolese dual-lumen 20 cm midline catheterwas placed. The tip was placed i n good position over the right axillary vein.IMPRESSION: 5 Congolese dual-lumen mid line catheter placed with tip positioned overthe right axillary vein.Ct Chest Abd Pelv Wo ContResult Date: 04/20/2019Referring Physician: MILI HILLS Patient Name: EVELIO CARLIN FINAL RE[facility]FROM [facility] EXAM: CT chest without contrast and CT abdomen pelviswithout contrast DATE OF EXAM: 2019-04-20 20:52:12 IMAGES: 681 HI STORY: reducedbreath sounds right lung, LLQ tenderness Comparison: 03/14/19 and FINDINGS: Axial images of the chest, abdomen and pelvis are obtained without ivcontrast. Chest: Mediastinal assessment is limited without contrast. Imagequality l imited by artifacts. Patchy lung opacities right greater than leftsimilar to prior. Small pleural effusions. Vascular including coronarycalcifications. Mediastinum appe ars shifted to the right. Left hemidiaphragm iselevated. Abdomen and pelvis: Nonspeci fic bowel pattern, with post surgicalchanges on the left. No definite free air. Organ assessment limited without ivcontrast. No significant free fluid or free air. No b owel obstruction or abscessseen. Catheter and air in the bladder which is not well ass essed. Left hiphardware partially seen with old fracture deformity. G-J tube is pres ent.Ventral hernia right of midline at abdominal wall with multiple small bowel loops without obstructive pattern. Mild right muscle swelling with possiblehematoma an d calcification at right groin image 117/120. Degenerative bonychanges. Multiple likel y chronic compression deformities at thoracic and lumbarspine. Bilateral L5-S1 spondyl olysis and anterolisthesis.IMPRESSION: Right greater than left lung infiltrates and e ffusions. No bowelobstruction. 2 cm hyperdensity at a bowel loop in left pel vis image 90/120,possibly ingested material, or a tube fragment or post surgical charles ge. Ventralabdominal hernia seen. See above. One or more of the following dose reduct iontechniques were used: automated exposure control, adjustment of the mA and/or kVa ccording to patient size, use of iterative reconstructive technique. THISDOCUMENT H BEEN ELECTRONICALLY SIGNED Marcie Edge MD 04/20/2019 22:43 GINA VerdePlease call Katjadevang berger Wireless Consultant [phone] ([phone]) with questions. This reportwas electronically signed by: Marcie Edge MD 04/20/2019 10:44 PMUs Retroperitoneum CompResult Date: 04/23/2019Retroperitoneal sonogram clinical indication acute kidney insufficiency S tudyis limited secondary to position of the patient and the patient'sinability t o cooperate. The abdominal aorta and inferior vena cava are obscured.The right kidney measures 9.2 cm. There is no evidence of hydronephrosis. Theleft kidney measures 9.5 cm. There is no evidence of hydronephrosis. Foleycatheter is seen wi thin the bladder.IMPRESSION: 1. Limited study. 2. No evidence of hydronephrosisX r Chest PortResult Date: 04/26/2019CHEST ONE VIEW HISTORY: Intubation. COMPARISON: Pr evious studies. The patienthas been intubated. The endotracheal tube tip is approximately 5.9 cms. abovethe tian. The left pleural effusion has resolved. Ther e has been no change ofa small right pleural effusion. No other significant change is noted.IMPRESSION: Endotracheal tube tip approximately 5.9 cms. above the tian. Resolution of left pleural effusion.Xr Chest PortResult Date: 04/23/2019XR CHEST PORT C LINICAL INDICATION PROVIDED:. "Verification of PICC lineplacement." TECHNIQUE.: 2 AP views, chest. COMPARISON:. 04/19/2019. FINDINGS:. Thetip of the vascular cathet er projects over the right axilla, likely a midlinecatheter placed on 04/01/2019. Th e pericardial/cardiac silhouette is enlarged inthe transverse dimension. There is mil d pulmonary vascular congestion andinterstitial edema. There is suggesti on of small bilateral pleural effusions.Density in the lung bases may represent adjacent atelectasis or superimposedlower lung infiltrates. Foll ow-up radiographs are recommended.IMPRESSION:. 1. Midline cat heter projecting over the right axilla. 2. Mildcongestive failure with interstitial edema and small bilateral pleuraleffusions.Xr Chest PortResult Pan e: 04/19/2019History: Respiratory difficulty. FINDINGS: A frontal portable view of the chestis submitted for interpretation and is compared to the prior study of04/06/2019 . EKG leads overlie the chest. A right-sided midline catheter is notedin situ. The ca rdiac silhouette measures at the upper limits of normal. There ispatchy opacity noted at the lung bases, left greater than right, which may beinfiltrative or atelectatic in nature. A small left pleural effusion is noted.Mediastinal and hilar structures a re unremarkable.IMPRESSION: Basilar infiltrative change left greater than ri ght. Small leftpleural effusion.Xr Chest PortResult Date: 04/06/2019CHEST one sabrina w HISTORY: Pneumonia. COMPARISON: 03/25/2019. There is a poorinspiratory effort which compromises this interpretation. A repeat study issuggested. There is discoid atel ectasis and/or subsegmental left lower lobeatelectasis along the left hemidiaph ragm. .There is no gross evidence ofcongestion, effusions or pneumothorax. IMPRESSION: Possible left lower lobe atelectasis. Poor inspiratory effort.Dup krissy Lower Ext Venous LeftResult Date: 04/26/2019LEFT LOWER EXTREMITY DOPPLER Hi story: Pain and swelling. High-resolution linearsonography of the left lower extre mity was performed using Color Doppler Flowand Duplex Doppler spectral sonograp hy. Findings: There is no evidence of deepvein thrombosis. The common femoral, visualized portions of the greatersaphenous, proximal, mid and distal superficial fem oral and popliteal veins werepatent. Spontaneous and phasic flow was noted. N ormal compression and responseto augmentation was noted. The anterior tibial vein and posterior tibial veinare not documented. The peroneal vein is patent. .IMPRESSION: No evidence of deep vein thrombosis. Suboptimal study.Duplex Upper Ext Venous LeftResult Date: 04/23/2019DUPLEX UPPER EXTREMITY-VENOUS LEFT HISTORY: Swelling left upperextremi ty-evaluate for DVT PRIOR: Multiple: Most recent February 10, 2019: "Noevidence of deep vein thrombosis." TECHNICAL FACTORS: High resolution lineargrayscale, color-f low and Doppler evaluation of the left upper extremity wasperformed from the neck to the antecubital fossa. FINDINGS: Normal antegradeflow, compressibility of the de ep venous vasculature, except for the internaljugular and subclavian veins due to their positions/anatomic location, as wellas augmentation of flow/phasicity is identified within the visualized portionsof the deep venous system. No filling defec ts are identified that would besuspicious for, or lead customer service representative of DVT.IMPRESSION : 1. No sonographic findings suggestive of thrombosis within thevisualized portions of the deep venous system of the left upper extremity.Duplex Upper Ext Venous RightR esult Date: 04/26/2019RIGHT UPPER EXTREMITY DOPPLER HISTORY: Pain and swelling. High -resolution linearsonography of the right upper extremity was performed using Berthoud r Doppler Flowand Duplex Doppler Spectral sonography. There is no evidence of a de ep veinthrombosis. The cephalic vein could not be visualized. The right internaljug ular, subclavian, axillary, brachial and basilic veins are patent andcompletely c ompressible. Spontaneous and phasic flow is noted.IMPRESSION: No evidence of deep ve in thrombosis. Suboptimal study.Medications reviewedCurrent Facility-Administered Me dicationsMedication Dose Route Frequency vancomycin 50 mg/mL oral solution (compo unded) 125 mg 125 mg Per G Tube Q6H meropenem (MERREM) 500 mg in 0.9% sodium chloride (MBP/ADV) 50 mL MBP 0.5 gIntraVENous Q12H lamoTRIgine (LaMICtal ) tablet 100 mg 100 mg Per G Tube QPM methylPREDNISolone (PF) (SOLU-MEDROL) in jection 40 mg 40 mg IntraVENous Q8H LORazepam (ATIVAN) tablet 1 mg 1 mg Per G Tube QHS lamoTRIgine (LaMICtal) tablet 50 mg 50 mg Per G Tube DAILY sodium chlor wade (NS) flush 5-40 mL 5-40 mL IntraVENous Q8H sodium chloride (NS) flush 5-40 mL 5-40 mL IntraVENous PRN dextrose 5 % - 0.45% NaCl infusion 50 mL/hr IntraVENou s CONTINUOUS pantoprazole (PROTONIX) 40 mg in 0.9% sodium chloride 10 mL injection 40 mgIntraVENous DAILY acetaminophen (TYLENOL) tablet 650 mg 650 mg Oral Q6H PRN HYDROcodone-acetaminophen (NORCO) 5-325 mg per tablet 1 Tab 1 Tab Oral Q4HPRN ondansetron (ZOFRAN) injection 4 mg 4 mg IntraVENous Q6H PRN magnesium hydroxide (MILK OF MAGNESIA) 400 mg/5 mL oral suspension 30 mL 30mL Oral DAILY PRN p ropofol (DIPRIVAN) 10 mg/mL infusion 0-50 mcg/kg/min IntraVENous TITRATE albutero l-ipratropium (DUO-NEB) 2.5 MG-0.5 MG/3 ML 3 mL Nebulization Q6HWA RT acetylcysteine (MUCOMYST) 100 mg/mL (10 %) nebulizer solution 400 mg 4 mLInhalation TID RT miconazole (MICOTIN) 2 % cream Topical BID sodium chloride (NS) flush 5-10 mL 5-10 mL IntraVENous PRN budesonide (PULMICORT) 500 mcg/2 ml nebulizer suspension 500 m cg NebulizationBID RT cinacalcet (SENSIPAR) tablet 60 mg 60 mg Oral DAILY heparin (porcine) injection 5,000 Units 5,000 Units SubCUTAneous [id number]/Plan:Hospita l Problems Date Reviewed: 04/26/2019 Codes Class Noted POA Scrotal rash ICD-1 0-CM: Y64CDL-8-VH: 782.1 04/21/2019 Yes COPD with acute exacerbation (HCC) ICD-10-CM: J44.1ICD-9-CM: 491.21 04/19/2019 Unknown Acute on chronic respiratory failure wit h hypoxia and hypercapnia (HCC)ICD-10-CM: J96.21, J96.22ICD-9-CM: 518.84, 786.09, 799.02 04/19/2019 Unknown Acute hypoxemic respiratory failure (HCC) ICD-10-CM: J96 .01ICD-9-CM: 518.81 03/25/2019 Unknown Pneumonia ICD-10-CM: J18.9ICD-9-CM: 486 11/08/2018 UnknownAssessment: Acute Respiratory failure Staph Sepsis- POANe w tremors Rule out SeizuresFeversUnresponsive- recurrentAcu te Kidney InjurySupra therapeutic vanco troughEdema rue and Left LE, ( Venous du plex neg for dvt)Displaced mid line catheter s/p removalAcute COPD exacerbationAspira tion PneumoniaAtelectasisS/P Unresponsive on admission like secondary to Toxic [place] lic EncephalopathyDysphagiaMalfunctioning PEJIncomplete bladder emptying- Resolved Hyperparathyroid UnspecifiedSeizureHypokalemiaMentally ch allenged -Plan:Ventilator support per pulmonaryF/U EEGContinue Lamictal via g/ tDC xanax q hs, 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 TranxeneSwitch to Ativ an 1mg via peg q hs IV vancomycin was DC'dContinue zosyn per IDF/u results of C DiffMonitor bun/creatIV fluids per renalContinue nebulizersSurgery f/uRepla ce potassiumNutrition supplementsF/u repeat culturesDuncan Gonzalez 20Time: 11:38 PM Name Value Range Interpretation Code Description Data Harriett rce(s) Supporting Document(s ) ID Date Data Source [id number] 04/27/2019 01:33:07 PM EST [facility]Krystian Monae MD., F.C.C.P.Stella Hamilton MD., F.C.C.P. [address] [place] [id number] [place] [address] Name: Evelio JohnsoninDOB: 1950MRN: [id number]: 04/27/2019Subjective:Mr. Carlin is a 68 y.o. year old male who is being see n for ACUTEHYPERCAPNIC A ND HYPOXIC RESPIRATORY FAILURE . BILATERAL PNEUMON IA , SEEVRECOPD , MENTAL RETARDATION . HE IS INTUBATED FOR MUSCLE FATIGUE AND ASP , PNEUMONIA , NOW COMFORTABLEON VENTILATOR , TREMORS ARE LESS . CHEST XRAY 04/27/2019 SHOWS SEVER E COPD , MULT LOBAR PNEUMONIA ANDPLEURAL EFFUSI ON . 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) S chizophrenia ([facility])Allergy:No Known AllergiesVital Signs:Patient Vitals for the past 24 hrs: BP Temp Pulse Resp SpO2 Jdbnwq55/13/20 1300 136/59 - 98 20 99 % -04/27/19 1200 128/72 97 F (36.1 C) 96 19 98 % -04/27/19 1100 122/62 - 95 18 98 % -04/27/19 1000 114/70 - 99 22 95 % -04/27/19 0900 114/62 - 98 21 96 % -04/27/19 0815 - - 78 19 100 % -04/27/19 0800 142/78 97.3 F (36.3 C) 79 20 98 % -04/27/19 0700 151/ 79 - 66 18 98 % -04/27/19 0619 - - 64 18 96 % -04/27/19 0600 123/57 - 66 16 95 % 62.7 kg (138 lb 3.7 oz)04/27/19 0500 118/56 - 63 (!) 4 95 % -04/27/19 0400 124/84 98.8 F (37.1 C) 74 19 (!) 83 % -04/27/19 0300 127/66 - 66 18 94 % -04/27/19 0207 - - 7 4 18 96 % -04/27/19 0200 118/56 - 75 18 96 % -04/27/19 0100 121/62 - 72 18 96 % -04/15 07/02 0000 - 99 F (37.2 C) - - - -04/26/19 2300 110/55 - 84 18 96 % -04/26/19 2200 101/53 - 94 18 96 % -04/26/19 2100 106/57 - 85 8 95 % -04/26/19 2053 - - 83 18 96 % -04/26/19 2000 105/56 99.2 F (37.3 C) 87 (!) 4 96 % -04/26/19 1900 117/57 - 84 18 94 % -04/26/19 1800 108/54 - 84 18 94 % -04/26/19 1724 - - 86 18 96 % -04/26/19 1700 125/70 - 89 18 94 % -04/26/19 1600 96/64 98.8 F (37.1 C) 86 18 97 % -04/26/19 1 500 124/57 - 87 18 95 % -04/26/19 1400 127/60 - 83 18 94 % -04/26/19 1341 - - 69 18 97 % -Pulse OX:SpO2 Readings from Last 6 Encounters:04/27/19 99%04/16/19 100%03/16 07/01 99%03/17/19 92%02/19/19 96%02/18/19 92%@LASTSAO2(6)@Intake/Output:Last shift : No intake/output data recorded.Last 3 shifts: 04/25 1900 - 04/27 0700In: 4599. 1 [I.V.:4199.1]Out: 1320 [Urine:1170; Drains:150]Intake/Output Summary (Last 2 4 hours) at 04/27/2019 1321Last data filed at 04/27/2019 0700Gross per 24 hourIntake 21 99.02 mlOutput 700 mlNet 1499.02 mlHemodynamics:.@MAP.@CVPVentilator Sett ings:Ventilator Mode: PRVCRespiratory RateInsp Time (sec): 1 secI:E Ratio: 1:2 .3Ventilator VolumesVt Set (ml): 400 mlVt Exhaled (Machine Breath) (ml): 398 mlVt Spont (ml): 389 mlVe Observed (l/min): 7.7 l/minVentilator PressuresPIP Observed (c m H2O): 17 cm H2OMAP (cm H2O): 9PEEP/VENT (cm H2O): 5 cm A77Igzp Rate Tidal Volume Pre ssure FiO2 PEEPPRVC 400 ml 50 % 5 cm S70Bqaz airway pressure: 17 cm D4TYpoboz ventilation: 7.7 l/minARDS network Guidelines: Lung protective strategy and Pl pressure goals 17 CMSless than or equal to 30Physical Exam:ORAL INTUBATION , COL OR IS GOOD , PATIENT IS COMFORTABLE General: LETHARGIC , cooperative, CT LD RESPIRATORY distress,appears stated age. Head: Normocephalic, withou t obvious abnormality, atraumatic. Eyes: Conjunctivae/corneas clear. PERR L, EOMs intact. Nose: Nares normal. No drainage or sinus tenderness Throat: Lips, mucosa, and tongue normal Neck: Supple, symmet rical, trachea midline, no adenopathy,thyroid: no enlargem ent/tenderness/nodules, no carotid bruit and no JVD. Lungs: WHEEZING +1 , RHONCHI +1 , RALES = RT > LT LUNG , MILDDULLNESS AT BASES to auscultation bi laterally. Chest Wall: No tenderness or deformity. Heart: Regular r ate and rhythm, S1, S2 normal, no murmur, click,rub or NO gallop. Abdomen: Soft, non-tender. Bowel sounds normal. No masses, No organomegaly. Extremities: Extremities normal, atraumatic, no cyanosis or edema. Pulses: 4+ bilateral ly Skin: Skin color, texture, turgor normal. No rashes or lesions. Ne urologic: CNII-XII intact. No focal motor or sensory deficit.DATA:Current Facility -Administered MedicationsMedication Dose Route Frequency vancomycin 50 mg/mL ora l solution (compounded) 125 mg 125 mg Per G Tube Q6H meropenem (MERREM) 500 mg in 0 .9% sodium chloride (MBP/ADV) 50 mL MBP 0.5 gIntraVENous Q12H lamoTRIgine (LaMICtal ) tablet 100 mg 100 mg Per G Tube QPM methylPREDNISolone (PF) (SOLU-MEDROL) in jection 40 mg 40 mg IntraVENous Q8H LORazepam (ATIVAN) tablet 1 mg 1 mg Per G Tube QHS lamoTRIgine (LaMICtal) tablet 50 mg 50 mg Per G Tube DAILY sodium chlor wade (NS) flush 5-40 mL 5-40 mL IntraVENous Q8H sodium chloride (NS) flush 5-40 mL 5-40 mL IntraVENous PRN dextrose 5 % - 0.45% NaCl infusion 50 mL/hr IntraVENou s CONTINUOUS pantoprazole (PROTONIX) 40 mg in 0.9% sodium chloride 10 mL injection 40 mgIntraVENous DAILY acetaminophen (TYLENOL) tablet 650 mg 650 mg Oral Q6H PRN HYDROcodone-acetaminophen (NORCO) 5-325 mg per tablet 1 Tab 1 Tab Oral Q4HPRN ondansetron (ZOFRAN) injection 4 mg 4 mg IntraVENous Q6H PRN magnesium hydroxide (MILK OF MAGNESIA) 400 mg/5 mL oral suspension 30 mL 30mL Oral DAILY PRN p ropofol (DIPRIVAN) 10 mg/mL infusion 0-50 mcg/kg/min IntraVENous TITRATE albutero l-ipratropium (DUO-NEB) 2.5 MG-0.5 MG/3 ML 3 mL Nebulization Q6HWA RT acetylcysteine (MUCOMYST) 100 mg/mL (10 %) nebulizer solution 400 mg 4 mLInhalation TID RT miconazole (MICOTIN) 2 % cream Topical BID sodium chloride (NS) flush 5-10 mL 5-10 mL IntraVENous PRN budesonide (PULMICORT) 500 mcg/2 ml nebulizer suspension 500 m cg NebulizationBID RT cinacalcet (SENSIPAR) tablet 60 mg 60 mg Oral DAILY heparin (porcine) injection 5,000 Units 5,000 Units SubCUTAneous M85DBuibfatoh: [x]Sinus []A -flutter []Paced []A-fib []Multiple PVC'sLabs:Recent Results (from the past 24 hour(s))BLOOD GAS, ARTERIAL Collection Time: 04/26/19 4:26 PMResult Value Ref Range pH 7.46 (H) 7.35 - 7.45 PCO2 41 32 - 48 mmHg PO2 96 83 - 108 mmHg CO2, TOTAL 31 (H) 19 - 24 mmol/L BICARBONATE 29 (H) 21 - 28 mmol/L O2 SAT 98 94 - 98 % BASE EXCESS 4 .9 (H) 0 - 3 mmol/L SITE LEFT RADIAL MIRANDA'S TEST POSITIVE DEVICE VENTILATOR FIO2 50. 0 % MODE Pressure regulated volume control PEEP/CPAP 5 Tidal volume 400 RATE 18 Per formed by [id number] Collection Time: 04/27/19 4:20 AMResult Value Ref Range Magnesium 2.4 1.6 - 2.6 mg/dLCBC W/O DIFF Collection Time: 04/27/19 4:20 AMResult Value Ref Range WBC 7.7 4.8 - 10.6 K/uL RBC 3.15 (L) 4.70 - 6.00 M/uL HGB 9.6 (L) 14 .0 - 18.0 g/dL HCT 30.0 (L) 42.0 - 52.0 % MCV 95.2 (H) 81.0 - 94.0 FL MCH 30.5 27.0 - 35.0 PG MCHC 32.0 30.7 - 37.3 g/dL RDW 17.9 (H) 11.5 - 14.0 % PLATELET 542 (H) 130 - 400 K/uL MPV 9.5 9.2 - 11.8 FL NRBC 0.0 0 PER 100 WBC ABSOLUTE NRBC 0.00 0.0 - 0.0 1 K/uLRENAL FUNCTION PANEL Collection Time: 04/27/19 4:20 AMResult Value Ref Range Sodium 139 136 - 145 mmol/L Potassium 3.9 3.5 - 5.1 mmol/L Chloride 106 98 - 107 mmol/ L CO2 27 21 - 32 mmol/L Anion gap 10 10 - 20 mmol/L Glucose 186 (H) 74 - 106 mg/dL BU N 35 (H) 7 - 18 mg/dL Creatinine 2.29 (H) 0.70 - 1.30 mg/dL GFR est AA 37 (L) >60 ml/min/1.73m2 GFR est non-AA 30 (L) >60 ml/min/1.73m2 Calcium 9.1 8.5 - 10.1 mg/ dL Phosphorus 3.3 2.5 - 4.9 mg/dL Albumin 1.5 (L) 3.5 - 4.7 g/Oscar. DIFFICILE (DNA) Col lection Time: 04/27/19 9:15 AMResult Value Ref Range C. difficile (DNA) NEGATIVE N EGABG:Recent Labs 04/25/2021PH 7.46* 7.41 7.46*PCO2 41 5 2* 46PO2 96 114* 118*HCO3 29* 33* 33*FIO2 50.0 60.0 45.0Recent Glucose Results:Lab ResultsComponent Value Date/Time GLU 186 (H) 04/27/2019 04:20 AMCULTURES:All Micro Re sults Procedure Component Value Units Date/Time C. DIFFICILE (DNA) [[id number]] Collected: 04/27/19 0915 Order Status: Completed Specimen: Stool Updated: 1246 C. difficile (DNA) NEGATIVE Comment: This specimen is negative for t oxigenic C difficile by DNAamplification. Repeat testing is not recommended for co nfirmation, samplesreceived within 7 days of this negative result will be rejected. C ULTURE, RESPIRATORY/SPUTUM/BRONCH W GRAM STAIN [[id number]] Collected:04/26/19 170 0 Order Status: Completed Specimen: Sputum from Tracheal Aspirate Updated:04/27/19 0704 C. DIFFICILE (DNA) [[id number]] (Abnormal) Collected: 04/25/19 1715 Ord er Status: Completed Specimen: Stool Updated: 04/26/19 1551 C. difficile (D NA) TEST RESULT IS INCONCLUSIVE. PLEASE SUBMIT A NEW SPECIMEN FOR ANALYSIS. CULT URE, URINE [[id number]] Collected: 04/25/19 1147 Order Status: Completed Specimen: Urine from Clean catch Updated: Special Requests: NO SPECI AL REQUESTS Culture result: NO GROWTH 1 DAY C. DIFFICILE (DNA) [[id number]] Order Sta tus: Sent Specimen: Stool CULTURE, BLOOD [[id number]] Collected: 04/25/19 1210 Or bassem Status: Completed Specimen: Blood Updated: 04/26/19 08 Special Request s: NO SPECIAL REQUESTS Culture result: NO GROWTH AFTER 19 HOURS CULTURE, BLOOD [[id number]] Collected: 04/25/19 1205 Order Status: Completed Specimen: Blood Upda mikel: 04/26/19 08 Special Requests: NO SPECIAL REQUESTS Culture result: NO HAIDER WTH AFTER 19 HOURS CULTURE, BLOOD [[id number]] Collected: 04/20/19 1440 Order Status: Completed Specimen: Blood Updated: 04/26/19 08 Special Requests: NO SPEC IAL REQUESTS Culture result: NO GROWTH 6 DAYS CULTURE, BLOOD [[id number]] Collecte d: 04/20/19 1447 Order Status: Completed Specimen: Blood Updated: 04/26/19 0818 Special Requests: NO SPECIAL REQUESTS Culture result: NO GROWTH 6 DAYS CULTURE , BLOOD [[id number]] (Abnormal) Collected: 04/19/19 1005 Order Status: Completed S pecimen: Blood Updated: 04/22/19 0731 Special Requests: NO SPECIAL REQUESTS G ESCOBAR STAIN GRAM POSITIVE COCCI IN CLUSTERS ANAEROBIC BOTTLE CALLED TO AND READ MAIN K BY ROB LEDEZMA RN, ED, 0953 ON 04/20/19 TORISMIRAGLIA Culture result: S TAPHYLOCOCCUS EPIDERMIDIS : Refer to previous culture(s) for susceptibilityresults CUL TURE, BLOOD [[id number]] (Abnormal) (Susceptibility) Collected: 04/19/20091 5 Order Status: Completed Specimen: Blood Updated: 04/22/19 0729 Special Request s: NO SPECIAL REQUESTS GRAM STAIN GRAM POSITIVE COCCI IN CLUSTERS ANAEROBIC BOT TLE CALLED TO AND READ BACK BY ROB LEDEZMA, NANCY, ED, AT 0953 ON 04/20/19 TO RISMIRAGLIA Culture result: STAPHYLOCOCCUS EPIDERMIDISXR Results (most recent):Resu lts from Hospital Encounter encounter on 04/19/19XR CHEST PORT Narrative CHEST ON E VIEWHISTORY: Intubation.COMPARISON: Previous studies.The patient has been in tubated. The endotracheal tube tip is approximately 5.9cms. above the tian. The left pleural effusion has resolved. There has been nochange of a small right pleur al effusion.No other significant change is noted. Impression IMPRESSION: Endotrache al tube tip approximately 5.9 cms. above thecarina.Resolution of left pleural eff usion.CT Results (most recent):Results from Hospital Encounter encounter on 04/19/19 CT CHEST ABD PELV WO CONT Narrative Referring Physician: MILI HILLSPatient Name: Abbey MIKE FISCHBEINFINAL REPORT FROM IMAGING ON [facility]: CT chest without contrast and CT abdomen pelvis withoutcontrastDATE OF EXAM: 2019-04-20 20:52:12IMAGES: 681HIST ORY: reduced breath sounds right lung, LLQ tendernessComparison: 03/14/19 and 9FINDINGS: Axial images of the chest, abdomen and pelvis areobtained without iv contra st.Chest: Mediastinal assessment is limited without contrast. Imagequality limited b y artifacts. Patchy lung opacities right greaterthan left similar to prior. Small pleural effusions. Vascularincluding coronary calcifications. Mediastinum kanika ears shifted tothe right. Left hemidiaphragm is elevated.Abdomen and pelvis: Nonspeci fic bowel pattern, with post surgicalchanges on the left. No definite free air. Organ assessmentlimited without iv contrast. No significant free fluid or freeair.No bow el obstruction or abscess seen. Catheter and air in thebladder which is not well asse ssed. Left hip hardware partiallyseen with old fracture deformity. G-J tube is pres ent. Ventralhernia right of midline at abdominal wall with multiple smallbowel loops without obstructive pattern. Mild right muscleswelling with possible hematoma an d calcification at right groinimage 117/120. Degenerative bony changes. Multiple like ly chroniccompression deformities at thoracic and lumbar spine. BilateralL5-S1 spondyl olysis and anterolisthesis. Impression IMPRESSION: Right greater than left lung infiltrates and effusions.No bowel obstruction. 2 cm hyperdensity at a macrina l loop in leftpelvis image 90/120, possibly ingested material, or a tubefragment or post surgical change.Ventral abdominal hernia seen.See above.One or more of the follow ing dose reduction techniques were used:automated exposure control, adjustm ent of the mA and/or kVaccording to patient size, use of iterative reconstructivetec hnique.THIS DOCUMENT HAS BEEN ELECTRONICALLY SIGNEDFrsofia Edge MD04/20/2019 22:43 GINA Jenkins. Please call Imaging Wireless Consultant [phone] withquestions.T his report was electronically signed by:Marcie Edge MD 04/20/2019 10:44 PMImages:[email or web address] TEXTThis SmartLink requires a parameter for processing. Parameters are variableswhich can be added to the original SmartLink name. This allows you to reque stspecific information by giving the SmartLink precise direction.The [facility] SmartLink accepts (as a parameter) an external procedure IDor an anatomical re gion. Typically, this external ID would be the CPT code.You can also request the nu mber of procedures to be displayed by this SmartLink.To indicate the number, type t he procedure ID or anatomical regions followed bya colon and then the number o f procedures. To display all occurences for thatparticular procedure ID/anatomical r egions, type an asterisk in place of thenumber. To obtain only the last occur ence, type the procedure ID/anatomicalregions without the colon, number, or asterisk.T his SmartLink can display other procedures in the same procedure category if aparamete r is set.The SmartLink will display the last x cases of the procedure or anatomicalre gions you entered.Example: .BSHSILASTIMGCAT[[id number] example wo uld display results for the last three orders with an externalprocedure ID of [id number] he patient is: [] acutely ill Risk of deterioration: [] moderate [x] criticall y ill [x] highActive Problems: Pneumonia (11/08/2018) Acute hypoxemic respiratory failure (HCC) (03/25/2019) COPD with acute exacerbation (HCC) (04/19/2019) Acute on chronic respiratory failure with hypoxia and hypercapnia (HCC)(04/19/2019) Scrotal torsten h (04/21/2019)IMPRESSION: 1 ACUTE HYPERCAPNIC AND HYPOXIC RESPIRATORY FA ILURE DUE TO SEVERECOPD / PNEUMONIA R ML , R L L1. ATELECTASIS L L L RESOLVED WITH INTUBATION2. PLEURAL EFFUSION VS ATELECTASIS RT BASES .BETTER3. SEVER E COPD 4. SEVERE METABOLIC ENCEPHALOPATHY5. SEVERE MENTAL RETARD ATION6. SEIZURE VS TREMORS ON LAMICTAL SEEN BY DR SCHNEIDER7. PNEUMONIA 8. SEPSIS L A = 2.59. BACTEREMIA G + COCCI - STAPH [id number]. SEVERE MAL NUTRITION ,11. ALB = 1.4 SEVERE [id number]. POSSIBLE 2 CM SEGMENT OF TUBE IN LEU EPR RADIOLOGY ON CATSCAN REPORT G I FOLLOWING Plan: 1. 2. SEIZURES A S PER NEUROLOGY , HE WILL BENEFIT FROM INTUBATION , AWAITING CALLBACK FROM HI S NEPHEW DR SANDRO FRANCIS , IF FAMILY AGREES WILL INTUBATE3. DUO NEB Q 4 H4 . MUCOMYST 10 % VIA MINI NEB Q 8 H5. IV ZOSYN AND VANCOMYCIN 6. CONT BIPAP SUP PORT AT NIGHT , DISCUSSED WITH STAFF , ORDERS FORBIOPAP GIVEN 7. LASIX 20 MG I V P NOW 8. DISCUSSED WITH RN ON BED SIDE 9. PATIENT IS NOT CLEARED FOR SURGERY DUE TO RESPIRATORY DISTRESS 10. DISCUSSED WITH DR HILLS ON BED SIDE , SHE AGREES FOR PXYEOKFAIH83. TRANSFER TO CU - DISCUSSED WITH ALEXANDR RN IN ICU 1. CONT MEROPENEM AND VANCOMYCIN2. PATIENT WILL NEED J RICHELLE FOR PERSIS TENTLY LEAKING P E G TUBE3. ADD PROSTAT FOR HYPOALBUMINEMIA4. PATIENT HAVE SE LANI MENTAL RETARDATIONS AND REPEATED ASPIRATIONS , HE WILNEED TRACHEOSTOMY TO KEEP HIS AIR WAYS PATENT , DISCUSSED WITH HIS SISTERKIRSTIN WHYTE AND HC P DR CACERES E N T , HE AGREES6. DUO NEB , I V SOLUMEDROL FOR COPD7. MUC OMYST TO LOOSEN TRACHEOBRONCHIAL SECTERTIONS8. CHEST PT9. PROGNOSIS I S DYOPGWH24. CONT SAME TREATMENT TODAY11. CHEST P T TO MOBILIZE SECRETIONS My assessment, plan of care, findings, medications, side effects etc werediscus sed with:[x]nursing []PT/OT[x]respiratory therapy [x]Dr. AHUMADA[x]family []Critic al Care Provided 60 minutes non procedure based.Krystian Monae MD F.C.C.P. Name Value Range Interpretation Code Description Data Harriett rce(s) Supporting Document(s ) ID Date Data Source [id number] 04/27/2019 10:18:25 AM [facility] Janell Schneider MD[address], [address] JERMAINE babb [id number] NEUROLOGY FOLLOW-UP NOTEPatient: Evelio Carlin Sex: male DOA: 04/19/2019Date of : 1950 Age: 68 y.o. LOS: LOS: 8 daysSubjective complaints: Unable History: 68 yr old M admitted with hypoxia, hypotension, tachypnea on Bipap.Noted to have tremors. Transferred to ICU for intubation. overnight EEG shows noseizur es, mild generalized slowingMeds:Current Facility-Administered MedicationsMedicat ion Dose Route Frequency vancomycin 50 mg/mL oral solution (compounded) 125 mg 125 m g Per G Tube Q6H meropenem (MERREM) 500 mg in 0.9% sodium chloride (MBP/ADV) 50 mL MBP 0.5 gIntraVENous Q12H lamoTRIgine (LaMICtal) tablet 100 mg 100 mg Per G T ube QPM methylPREDNISolone (PF) (SOLU-MEDROL) injection 40 mg 40 mg Int raVENous Q8H LORazepam (ATIVAN) tablet 1 mg 1 mg Per G Tube QHS lamoTRIgine (LaMICt al) tablet 50 mg 50 mg Per G Tube DAILY sodium chloride (NS) flush 5-40 mL 5-40 mL IntraVENous Q8H sodium chloride (NS) flush 5-40 mL 5-40 mL IntraVENous PRN dextrose 5 % - 0.45% NaCl infusion 50 mL/hr IntraVENous CONTINUOUS pantoprazole (TN OTONIX) 40 mg in 0.9% sodium chloride 10 mL injection 40 mgIntraVENous DAILY aceta minophen (TYLENOL) tablet 650 mg 650 mg Oral Q6H PRN HYDROcodone-acetaminophen (NORC O) 5-325 mg per tablet 1 Tab 1 Tab Oral Q4HPRN ondansetron (ZOFRAN) injection 4 mg 4 mg IntraVENous Q6H PRN magnesium hydroxide (MILK OF MAGNESIA) 400 mg/5 mL oral suspension 30 mL 30mL Oral DAILY PRN propofol (DIPRIVAN) 10 mg/mL infusion 0 -50 mcg/kg/min IntraVENous TITRATE albuterol-ipratropium (DUO-NEB) 2.5 MG-0 .5 MG/3 ML 3 mL Nebulization Q6HWA RT acetylcysteine (MUCOMYST) 100 mg/mL (10 %) nebulizer solution 400 mg 4 mLInhalation TID RT miconazole (MICOTIN) 2 % cream Topical BID sodium chloride (NS) flush 5-10 mL 5-10 mL IntraVENous PRN budesonide (PULMICORT) 500 mcg/2 ml nebulizer suspension 500 mcg NebulizationBID RT cinacalcet (SENSIPAR) tablet 60 mg 60 mg Oral DAILY heparin (porcine) injection 5,000 Units 5,000 Units SubCUTAneous Q76APdbnnh of Systems:Unable to assess secondary to me ntal statusVisit VitalsBP 142/78 (BP 1 Location: Left arm, BP Patient Position: At rest)Pulse 78Temp 97.3 F (36.3 C)Resp 19Ht 5' 2" (1.575 m)Wt 138 lb 3.7 oz (62 .7 kg)SpO2 100%BMI 25.28 kg/m GeneralChronically ill appearing , intub ated, not restrainedMental StatusEyes open, but not responsive, intermittently seems to track but doesn't sustainCranial NervesPupils 6mm unreactive, dysconjugat e gaze, +Corneals. +Averts to noxious nasalstim.MotorMoves all ext 2/5. Tremor s in hands with stimulation, but not at rest or withspontaneous movementsSensationIGr imaces and mild withdrawal to noxious stim all 4ReflexesDTRs trace, toes downgoingG ait.CerebellumNARecent Labs:Lab ResultsComponent Value Date/Time WBC 7.7 04/27/2019 04:20 AM HGB 9.6 (L) 04/27/2019 04:20 AM HCT 30.0 (L) 04/27/2019 04:20 A M PLATELET 542 (H) 04/27/2019 04:20 AM MCV 95.2 (H) 04/27/2019 04:20 AMLab ResultsC omponent Value Date/Time Sodium 139 04/27/2019 04:20 AM Potassium 3.9 2019 04:20 AM Chloride 106 04/27/2019 04:20 AM CO2 27 04/27/2019 04:20 AM Anion gap 10 04/27/2019 04:20 AM Glucose 186 (H) 04/27/2019 04:20 AM BUN 35 (H) 0 04:20 AM Creatinine 2.29 (H) 04/27/2019 04:20 AM GFR est AA 37 (L) 04/27/2019 04 :20 AM GFR est non-AA 30 (L) 04/27/2019 04:20 AM Calcium 9.1 04/27/2019 04:20 AM Bilir ubin, total 0.2 04/19/2019 10:15 AM AST (SGOT) 21 04/19/2019 10:15 AM Alk. phosp hatase 75 04/19/2019 10:15 AM Protein, total 6.3 (L) 04/19/2019 10:15 AM Albumin 1.5 (L) 04/27/2019 04:20 AM Globulin 4.2 04/19/2019 10:15 AM A-G Ratio 0.5 (L) 10:15 AM ALT (SGPT) 12 (L) 04/19/2019 10:15 AMCT Results (most rece nt):Results from Hospital Encounter encounter on 04/19/19CT CHEST ABD PELV WO CONT Rob rative Referring Physician: MILI HILLSPatient Name: EVELIO MALAVE REPORT FROM IMAGING ON [facility]: CT chest without contrast and CT abdomen pelvis w ithoutcontrastDATE OF EXAM: 2019-04-20 20:52:12IMAGES: 681HISTORY: reduced del th sounds right lung, LLQ tendernessComparison: 03/14/19 and 9FINDINGS: Axial images of the chest, abdomen and pelvis areobtained without iv contra st.Chest: Mediastinal assessment is limited without contrast. Imagequality limited b y artifacts. Patchy lung opacities right greaterthan left similar to prior. Small pleural effusions. Vascularincluding coronary calcifications. Mediastinum kanika ears shifted tothe right. Left hemidiaphragm is elevated.Abdomen and pelvis: Nonspeci fic bowel pattern, with post surgicalchanges on the left. No definite free air. Organ assessmentlimited without iv contrast. No significant free fluid or freeair.No bow el obstruction or abscess seen. Catheter and air in thebladder which is not well asse ssed. Left hip hardware partiallyseen with old fracture deformity. G-J tube is pres ent. Ventralhernia right of midline at abdominal wall with multiple smallbowel loops without obstructive pattern. Mild right muscleswelling with possible hematoma an d calcification at right groinimage 117/120. Degenerative bony changes. Multiple like ly chroniccompression deformities at thoracic and lumbar spine. BilateralL5-S1 spondyl olysis and anterolisthesis. Impression IMPRESSION: Right greater than left lung infiltrates and effusions.No bowel obstruction. 2 cm hyperdensity at a macrina l loop in leftpelvis image 90/120, possibly ingested material, or a tubefragment or post surgical change.Ventral abdominal hernia seen.See above.One or more of the follow ing dose reduction techniques were used:automated exposure control, adjustm ent of the mA and/or kVaccording to patient size, use of iterative reconstructivetec hnique.THIS DOCUMENT HAS BEEN ELECTRONICALLY SIGNEDFrsofia Edge MD04/20/2019 22:43 GINA Jenkins. Please call Imaging Wireless Consultant [phone] withquestions.T his report was electronically signed by:Marcie Edge MD 04/20/2019 10:44 PMMRI Results (most recent):No results found for this or any previous visit.Assessment:Problem Kiya lucero Date Reviewed: 04/26/2019 Codes Class Noted Scrotal rash ICD-10-CM: R21I CD-9-CM: 782.1 04/21/2019 COPD with acute exacerbation (HCC) ICD-10-CM: J44.1ICD-9 -CM: 491.21 04/19/2019 Acute on chronic respiratory failure with hypoxia and hyp ercapnia (HCC)ICD-10-CM: J96.21, J96.22ICD-9-CM: 518.84, 786.09, 799.02 04/19/2019 Acute hypoxemic respiratory failure (HCC) ICD-10-CM: J96.01ICD-9-CM: 518.81 03/25/2019 Pressure injury of right heel, stage 2 (HCC) ICD-10-CM: L89.612ICD-9-CM : 707.07, 707.22 02/09/2019 Leg wound, right, initial encounter ICD-10-CM: S81. 751YSYR-0-WN: 894.0 02/09/2019 SOB (shortness of breath) ICD-10-CM: R06.02I CD-9-CM: 786.05 02/08/2019 Acute respiratory failure with hypoxia (HCC) ICD-10-CM: J9 6.01ICD-9-CM: 518.81 01/10/2019 Pneumonia involving right lung ICD-10-CM: J18.9ICD -9-CM: 486 01/10/2019 Hyponatremia ICD-10-CM: E87.1ICD-9-CM: 276.1 01/10/2019 Generali zed anxiety disorder (Chronic) ICD-10-CM: F41.1ICD-9-CM: 300.02 12/30/2018 Sepsis due to undetermined organism (HCC) ICD-10-CM: A41.9ICD-9-CM: 038.9 12/12/2018 COPD (ch ronic obstructive pulmonary disease) (HCC) ICD-10-CM: J44.9ICD-9-CM: 496 11/08/2018 Acute respiratory distress ICD-10-CM: R06.03ICD-9-CM: 518.82 11/08/2018 Pneumo freddy ICD-10-CM: J18.9ICD-9-CM: 486 11/08/2018 COPD exacerbation (HCC) ICD-10-CM: J44.1 ICD-9-CM: 491.21 11/08/2018 Paraesophageal hiatal hernia ICD-10-CM: K44.9ICD-9-CM: 553.3 09/26/2015Plan: 68 yr old M with tremor, fever, staph sepsis, resp failur e. Afebrileovernight. Suspect that the tremors that occur mostly with stimulati on shouldimprove as his metabolic issues improve. Continue Lamictal 50-100 24 h r EEG shows no seizures- hence no electrographic correlate to his tremors- will disconnect Continue medical mx reconsult neurology as [id number] minutes of direct patient careJanell Schneider MDJanuary 2019Ext. 8808 Name Value Range Interpretation Code Description Data Harriett rce(s) Supporting Document(s ) ID Date Data Source [id number] 04/27/2019 10:11:51 AM EST [facility] GI PROGRESS NOTENAME: Evelio Johnson inDOB: 1950MRN: [id number]:Events noted. Patient is now intubatedHe is tolerating TFs at 25 ml/hrHe is also having diarrhea and was started on po vancoObjective:VITALS:Last 24hrs VS reviewed since prior progress n ote. Most recent are:Visit VitalsBP 142/78 (BP 1 Location: Left arm, BP Patient Pos ition: At rest)Pulse 78Temp 97.3 F (36.3 C)Resp 19Ht 5' 2" (1.575 m)Wt 62.7 kg (1 38 lb 3.7 oz)SpO2 100%BMI 25.28 kg/m Intake/Output Summary (Last 24 hours) at 04/27/2019 1008Last data filed at 04/27/2019 0700Gross per 24 hourIntake 2199.02 mlOu tput 810 mlNet 1389.02 mlPHYSICAL EXAM:General: unresponsive, in no acute distressHEENT: Anicteric sclerae. ETTAbdomen: Soft, Non distended, Non tender.Lab Data Reviewed:Recent Labs 04/26/2003WBC 7.7 9.2HGB 9.6* 8.8*HCT 30.0* 27.7*PLT 542* 502*Recent Labs 04/26/2015NA 139 -- 142K 3.9 -- 3.6CL 106 -- 108*CO2 27 31* 29BUN 35* -- 33*CREA 2. 29* -- 2.05*GLU 186* -- 91PHOS 3.3 -- 2.2*CA 9.1 -- 8.9Recent Labs 04/27/19 0420 ALB 1.5* 1.4* Pati ent Active Problem ListDiagnosis Code Parae sophageal hiatal hernia K44.9 COPD (chronic obstructive pulmonary disease) ([facility]) J44 .9 Acute respiratory distress R06.03 Pneumonia J18.9 COPD exacerbation ([facility]) J44.1 Sepsis due to undetermined organism ([facility]) A41.9 Generalized anxiety disorde r F41.1 Acute respiratory failure with hypoxia ([facility]) J96.01 Pneumonia involvin g right lung J18.9 Hyponatremia E87.1 SOB (shortness of breath) R06.02 Pressure i njury of right heel, stage [address]) L89.612 Leg wound, right, initial encounter S81. 801A Acute hypoxemic respiratory failure ([facility]) J96.01 COPD with acute exacerbati on ([facility]) J44.1 Acute on chronic respiratory failure with hypoxia and hypercapnia ([facility])J96.21, J96.22 Scrotal rash K68Mdsjnuvmbs: J tube Via PEG - currently functioning Respiratory failure Diarrhea - possible C diffPlan: Continue TFs as tolerated Co ntinue PO vancoSigned By: Marly Amaya MD 04/27/2019 10:08 AM Name Value Range Interpretation Code Description Data Harriett rce(s) Supporting Document(s ) ID Date Data Source [id number] 04/27/2019 12:46:56 PM EST [facility] Name Value Range Interpretation Description Data Sup porting Code Source(s) Document(s ) Clostridium NEG [facility] difficile toxin [facility] in Stool by Probe and target amplification method This specimen is negative for toxigenic C difficile by DNA amplification. Repeat testing is not recommended for confirm ion, samples received within 7 days of this negative result will be rejected. ID Date Data Source [id number] 04/27/2019 09:00:37 AM EST [facility] ID Progress Note04/27/2019Subjective:PT t ransferred to ICU for respiratory failure s/p intubation, Pt havingdiarrhea, C. Diff t est was inconclusiveAfebrileUS of UE and LE negative for DVTUA is negativeS/p remova l of PICC lineIntubated and on EEG monitoring .Blood cx remain negativeObjective:Revie w of SystemsPatient is unable to provideVitals:Patient Vitals for the pas t 24 hrs: BP Temp Pulse Resp SpO2 Wedexh69/13/20 0815 - - 78 19 100 % - 0800 142/78 97.3 F (36.3 C) - 20 98 % -04/27/19 0700 151/79 - 66 18 98 % -04/15 07/02 0619 - - 64 18 96 % -04/27/19 0600 123/57 - 66 16 95 % 62.7 kg (138 lb 3.7 oz)04/27/19 0500 118/56 - 63 (!) 4 95 % -04/27/19 0400 124/84 98.8 F (37.1 C) 74 19 (!) 83 % -04/27/19 0300 127/66 - 66 18 94 % -04/27/19 0207 - - 74 18 96 % -04/15 07/02 0200 118/56 - 75 18 96 % -04/27/19 0100 121/62 - 72 18 96 % -04/27/19 0000 - 99 F (37.2 C) - - - -04/26/19 2300 110/55 - 84 18 96 % -04/26/19 2200 101/53 - 94 18 96 % -04/26/19 2100 106/57 - 85 8 95 % -04/26/19 2053 - - 83 18 96 % -04/26/19 2000 105/56 99.2 F (37.3 C) 87 (!) 4 96 % -04/26/19 1900 117/57 - 84 18 94 % -04/15 06/04 1800 108/54 - 84 18 94 % -04/26/19 1724 - - 86 18 96 % -04/26/19 1700 125/70 - 8 9 18 94 % -04/26/19 1600 96/64 98.8 F (37.1 C) 86 18 97 % -04/26/19 1500 124/57 - 87 18 95 % -04/26/19 1400 127/60 - 83 18 94 % -04/26/19 1341 - - 69 18 97 % -04/26/19 1300 130/64 - 69 18 99 % -04/26/19 1200 127/68 98.3 F (36.8 C) 73 18 94 % -04/03 1100 129/63 - 74 18 94 % -04/26/19 1000 103/65 - 78 21 94 % -04/26/19 0900 95/57 - 86 18 96 % -Tmax: Temp (24hrs), Av.6 F (37 C), Min:97.3 F (36.3 C), Max:99 .2 F(37.3 C)Physical Exam:General: Lethargic on BiPAP,no distressEyes: Con junctivae/corneas clear. PERRLNeck: Supple, symmetrical, trachea midline, no adenopa thyLungs: bilateral breath sounds with basal crackles..Heart: Regular rate and rhythm, S1, S2 normal, no murmurAbdomen: Soft, non-tender. Bowel sounds normal. N o masses, Noorganomegaly.peg+Back: Symmetric, no curvature. ROM normal. No CVA tenderness.Extremities: No cyanosis ,chronic lymphedema .Pulses: 2+ and symm etric all extremities.Skin: Skin color, texture, turgor normal. No rashes or les ionsLymph nodes: Cervical, supraclavicular, and axillary nodes normal.Current Facili ty-Administered MedicationsMedication Dose Route Frequency vancomycin 50 mg/mL ora l solution (compounded) 125 mg 125 mg Per G Tube Q6H meropenem (MERREM) 500 mg in 0 .9% sodium chloride (MBP/ADV) 50 mL MBP 0.5 gIntraVENous Q12H lamoTRIgine (LaMICtal ) tablet 100 mg 100 mg Per G Tube QPM methylPREDNISolone (PF) (SOLU-MEDROL) in jection 40 mg 40 mg IntraVENous Q8H LORazepam (ATIVAN) tablet 1 mg 1 mg Per G Tube QHS lamoTRIgine (LaMICtal) tablet 50 mg 50 mg Per G Tube DAILY sodium chlor wade (NS) flush 5-40 mL 5-40 mL IntraVENous Q8H sodium chloride (NS) flush 5-40 mL 5-40 mL IntraVENous PRN dextrose 5 % - 0.45% NaCl infusion 50 mL/hr IntraVENou s CONTINUOUS pantoprazole (PROTONIX) 40 mg in 0.9% sodium chloride 10 mL injection 40 mgIntraVENous DAILY acetaminophen (TYLENOL) tablet 650 mg 650 mg Oral Q6H PRN HYDROcodone-acetaminophen (NORCO) 5-325 mg per tablet 1 Tab 1 Tab Oral Q4HPRN ondansetron (ZOFRAN) injection 4 mg 4 mg IntraVENous Q6H PRN magnesium hydroxide (MILK OF MAGNESIA) 400 mg/5 mL oral suspension 30 mL 30mL Oral DAILY PRN p ropofol (DIPRIVAN) 10 mg/mL infusion 0-50 mcg/kg/min IntraVENous TITRATE albutero l-ipratropium (DUO-NEB) 2.5 MG-0.5 MG/3 ML 3 mL Nebulization Q6HWA RT acetylcysteine (MUCOMYST) 100 mg/mL (10 %) nebulizer solution 400 mg 4 mLInhalation TID RT miconazole (MICOTIN) 2 % cream Topical BID sodium chloride (NS) flush 5-10 mL 5-10 mL IntraVENous PRN budesonide (PULMICORT) 500 mcg/2 ml nebulizer suspension 500 m cg NebulizationBID RT cinacalcet (SENSIPAR) tablet 60 mg 60 mg Oral DAILY heparin (porcine) injection 5,000 Units 5,000 Units SubCUTAneous D51QOavp:Recent Labs 04/26/200304/25/200424WBC 7.7 9.2 10.1 --HGB 9.6* 8.8* 9.2* --PLT 542* 502* 503* --BUN 35* 33* -- 28*CREA 2.29* 2.05* -- 1.82*C ultures:Lab ResultsComponent Value Date/Time Culture result: NO GROWTH AFTER 19 HOURS 04/25/2019 12:10 PM Culture result: NO GROWTH AFTER 19 HOURS 04/25/2019 12:05 P M Culture result: NO GROWTH 1 DAY 04/25/2019 11:47 AMRadiology:No results found.Asses sment: Staph sepsis. Aspiration pneumonia. Acute COPD exacerbation. Acute respirat ory failure. Pleural effusion. Dysphagia Fever R/o C. difficile Plan:1. Continue meropenem2. Continue oral vancomycin and send another sample for C diff3. Send fo r respiratory culture4. Contact isolation5. PICC line is removed6. Follow blood and urine culturesMahlet Henri MDJanuary AM Name Value Range Interpretation Code Description Data Harriett rce(s) Supporting Document(s ) ID Date Data Source [id number] 04/27/2019 07:48:37 AM [facility] Progress NoteEmanuel Bahzywfde86 y.o.Adm it Date: 04/19/2019Subjective:Patient transferred to ccu due to resp failurePt intubatedReview of systems not obtained due to patient factors.Objective:Visit Vital sBP 151/79 (BP 1 Location: Left arm, BP Patient Position: At rest)Pulse 66Temp 9 8.8 F (37.1 C)Resp 18Ht 5' 2" (1.575 m)Wt 62.7 kg (138 lb 3.7 oz)SpO2 98%BMI 25.28 kg/m Intake/Output Summary (Last 24 hours) at 04/27/2019 0745Last data filed at 04/27 0600Gross per 24 hourIntake 2199.02 mlOutput 890 mlNet 1309.02 mlCurrent Fac ility-Administered MedicationsMedication Dose Route Frequency Provider Last Rate Last Dose vancomycin 50 mg/mL oral solution (compounded) 125 mg 125 mg Per G Tube Q 6HMonica Gomez MD 125 mg at 04/27/19 0650 meropenem (MERREM) 500 mg in 0.9% sodium chloride (MBP/ADV) 50 mL MBP 0.5 gIntraVENous Q12H Monica Gomez MD 16. 7 mL/hr at 04/26/19 2303 500 mg at04/26/19 2303 lamoTRIgine (LaMICtal) tablet 100 mg 100 mg Per G Tube QPM Roberto Burgos MD100 mg at 04/26/19 1803 methylPREDNISolone (PF) (SOLU-MEDROL) injection 40 mg 40 mg IntraVENous [id number] helms MD 40 mg at 04/27/19 0650 LORazepam (ATIVAN) tablet 1 mg 1 mg Per G Tube QHS Cesar Hills, DOStopped at 04/26/19 2200 lamoTRIgine (LaMICtal) tablet 50 mg 50 mg Per G Tub e DAILY Roberto Burgos MD50 mg at 04/26/19 0829 sodium chloride (NS) flush 5-40 mL 5-4 0 mL IntraVENous Q8H Krystian Monae MDStopped at 04/26/19 1400 sodium chloride (NS) f lush 5-40 mL 5-40 mL IntraVENous PRN Krystian Monae MD dextrose 5 % - 0.45% NaCl inf usion 50 mL/hr IntraVENous CONTINUOUS Krystian Monae MD 50 mL/hr at 04/26/19 19 30 50 mL/hr at 04/26/19 1930 pantoprazole (PROTONIX) 40 mg in 0.9% sodium chloride 10 mL injection 40 mgIntraVENous DAILY Krystian Monae MD 40 mg at 04/26/19 08 28 acetaminophen (TYLENOL) tablet 650 mg 650 mg Oral Q6H PRN Krystian Monae MD650 mg at 04/26/19 0453 HYDROcodone-acetaminophen (NORCO) 5-325 mg per tablet 1 Tab 1 Tab Oral Q4HPRN Krystian Monae MD ondansetron (ZOFRAN) injection 4 mg 4 mg IntraVENous Q6H PRN Krystian Monae MD magnesium hydroxide (M ILK OF MAGNESIA) 400 mg/5 mL oral suspension 30 mL 30mL Oral DAILY PRN Krystian Monae MD propofol (DIPRIVAN) 10 mg/mL infusion 0-50 mcg/kg/min IntraVENous TITRATESandKrystian rodrigues MD 6.7 mL/hr at 04/27/19 0338 20.12 mcg/kg/min at 04/27/19 0338 albuterol-i pratropium (DUO-NEB) 2.5 MG-0.5 MG/3 ML 3 mL Nebulization Q6HWA Mili Diaz DO 3 mL at 04/26/192051 acetylcysteine (MUCOMYST) 100 mg/mL (10 %) nebulizer so lution 400 mg 4 mLInhalation TID RT Mili Hills DO 400 mg at 04/26/192051 m iconazole (MICOTIN) 2 % cream Topical BID Crapella, Zuly, NECKTIE MAKER sodium chloride (NS) flush 5-10 mL 5-10 mL IntraVENous PRN OlmoNeeta ames, NECKTIE MAKER budesonide (PULMICORT ) 500 mcg/2 ml nebulizer suspension 500 mcg NebulizationBID RT Krystian Monae MD 5 00 mcg at 04/26/19 2052 cinacalcet (SENSIPAR) tablet 60 mg 60 mg Oral KYLEIGH Y Mili Hills, DOStopped at 04/26/19 0900 heparin (porcine) injection 5,000 Units 5,000 Units SubCUTAneous Q12H Mili Hills, DO 5,000 Units at 04/15 07/02 0650Physical Exam:Physical Exam:General: intubatedNeck: SuppleLungs: Scattered rhonchiHeart: S1, M9Fieprdi: Soft, non-tender. Bowel sounds normal. No mass es, No organomegaly.Extremities: EdemaData Review:CBC w/DiffRecent Labs 04/27/200304/26/200304/25/201110WBC 7.7 9.2 10.1RBC 3.15* 2.89* 3.02*HGB 9.6* 8.8* 9 .2*HCT 30.0* 27.7* 29.8*MCV 95.2* 95.8* 98.7*MCH 30.5 30.4 30.5MCHC 32.0 31.8 30 .9RDW 17.9* 17.9* 18.0* Recent Labs 04/25/2011477457FXFEO -- -- 13*EOS -- -- 1BASOS -- -- 0RDW 17.9* < > 18.0* < > = values in this i nterval not displayed. Lab ResultsComponent Value Date/Time PLATELET 542 (H) 020 04:20 AMComprehensive Metabolic ProfileRecent Labs 88986 04/25/2004NA 139 -- 142 -- 143K 3.9 -- 3.6 -- 3.4*CL 1 06 -- 108* -- 107CO2 27 31* 29 < > 34*BUN 35* -- 33* -- 28*CREA 2.29* -- 2.05* -- 1.82* < > = values in this interval not displayed. Recent Labs 01/ 13/715299 01/12/578242 01/11/861628FI 9.1 8.9 9.0PHOS 3.3 2.2* 2.6ALB 1.5* 1.4* 1.5*X- RAY (Last 24 Hours)No results found.IMPRESSION:Patient Active Problem ListDiagnosis Code 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 COPD (chronic obstructive pulmonary disease) ([facility]) J44.9 Acute respiratory distress R06.03 Pneumonia J 18.9 COPD exacerbation ([facility]) J44.1 Sepsis due to undetermined organism ([facility]) A41.9 Generalized anxiety disorder F41.1 Acute respiratory failure with hypoxia ([facility]) J 96.01 Pneumonia involving right lung J18.9 Hyponatremia E87.1 SOB (shortness of br eath) R06.02 Pressure injury of right heel, stage [address]) L89.612 Leg wound, right, initial encounter S81.801A Acute hypoxemic respiratory failure ([facility]) J96.01 COPD w ith acute exacerbation ([facility]) J44.1 Acute on chronic respiratory failure with hypoxia and hypercapnia ([facility])J96.21, J96.22 Scrotal rash Q79SDTJ: Cont ivf Worsening kidne y function Monitor labs Check urine studies Cont abx Further recommendations will be based on the patient's response to recommendedtreatment and results of the investigation ordered.Oralia Frankel MD04/27/201912:59 PM Name Value Range Interpretation Code Description Data [facility](s) Supporting Document(s ) ID Date Data Source [id number] 04/27/2019 07:28:15 AM [facility] Reviewed Ventilator Settings with onc oming RT Rylie Ivan, Settings, Weaning , Transports. Ventilator wiped d own with bleachwipes.Ezequiel Duke RT Name Value Range Interpretation Code Description Data [facility]) Supporting Document(s ) ID Date Data Source [id number] 04/27/2019 07:18:26 AM [facility] Bedside and Verbal shift change report carol pham to Katie Rojas, RN (oncoming nurse) Laura Subramanian,NANCY (offgoing nurse). NSR . Report given with SBAR, Kardex, Intake/Output, MAR,Accordion and Recent Results. Name Value Range Interpretation Code Description Data [facility](s) Supporting Document(s ) ID Date Data Source [id number] 04/27/2019 05:50:31 AM EST [facility] Name Value Range Interpretation Description Data Sup porting Code Source(s) Document(s ) Leukocytes 7.7 K/uL 4.8-10.6 [facility] - [#/volume] in Good Blood by [facility] Automated count Hospital Erythrocytes 3.15 4.70-6.0 Below low normal [facility] - [#/volume] in M/uL 0 Good Blood by [facility] count Hospital Hemoglobin 9.6 g/dL 14.0-18. Below low normal [facility] - [Mass/volume] in 0 Good Blood [facility] Hematocrit 30.0 % 42.0-52. Below low normal [facility] - [Volume 0 Good Fraction] of [facility] Blood by Hospital Automated count Erythrocyte mean 95.2 FL 81.0-94. Above high normal [facility] - corpuscular 0 Good volume [Entitic Taoist volume] by Hospital Automated count Erythrocyte mean 30.5 PG 27.0-35. [facility] - corpuscular 0 Good hemoglobin [facility]ist [Entitic mass] Hospital by Automated count Erythrocyte mean 32.0 30.7-37. [facility] - corpuscular g/dL 3 Good hemoglobin [facility] concentration [facility] [Mass/volume] by Automated count Erythrocyte 17.9 % 11.5-14. Above high normal [facility] - distribution 0 Good width [Ratio] by [facility] Automated count Hospital Platelets 542 K/uL 130-400 Above high normal [facility] - [#/volume] in Good Blood by [facility] Automated count Hospital Platelet mean 9.5 FL 9.2-11.8 [facility] - volume [Entitic Good volume] in Blood [facility] by Automated Hospital count Nucleated 0.0 PER 0 [facility] - erythrocytes/100 100 WBC Good leukocytes [facility]ist [Ratio] in Blood Hospital Nucleated 0.00 0.0-0.01 [facility] - erythrocytes K/uL Good [#/volume] in Taoist Blood [facility] ID Date Data Source [id number] 04/27/2019 05:35:01 AM EST [facility] Name Value Range Interpretation Description Data Sup porting Code Source(s) Document(s ) Sodium 139 136-145 [facility] - Good [Moles/volume] mmol/L [facility] in Serum or Hospital Plasma Potassium 3.9 3.5-5.1 [facility] - Good [Moles/volume] mmol/L [facility] in Serum or Hospital Plasma Chloride 106 98-107 [facility] - Good [Moles/volume] mmol/L [facility] in Serum or Hospital Plasma Carbon 27 21-32 [facility] - Good dioxide, total mmol/L [facility]ist [Moles/volume] Hospital in Serum or Plasma Anion gap in 10 10-20 [facility] - Good Serum or mmol/L [facility] Plasma Hospital Glucose 186 74-106 Above high normal [facility] - Good [Mass/volume] mg/dL [facility] in Serum or Hospital Plasma Urea nitrogen 35 mg/dL 7-18 Above high normal [facility] - Good [Mass/volume] Tao[facility] in Serum or Hospital Plasma Creatinine 2.29 0.70-1.3 Above high normal [facility] - Goo d [Mass/volume] mg/dL 0 [facility] in Serum or Hospital Plasma Glomerular 37 >60 Below low normal [facility] - Good filtration ml/min/1 Taoist rate/1.73 sq M .73m2 Hospital predicted among blacks [Volume Rate/Area] in Serum or Plasma by Creatinine-bas ed formula (MDRD) Glomerular 30 >60 Below low normal [facility] - Good filtration ml/min/1 Taoist rate/1.73 sq M .73m2 Hospital predicted among non-blacks [Volume Rate/Area] in Serum or Plasma by Creatinine-bas ed formula (MDRD) Calcium 9.1 8.5-10.1 [facility] - Good [Mass/volume] mg/dL [facility] in Serum or Hospital Plasma Phosphate 3.3 2.5-4.9 [facility] - Good [Mass/volume] mg/dL [facility] in Serum or Hospital Plasma Albumin 1.5 g/dL 3.5-4.7 Below low normal [facility] - Good [Mass/volume] [facility] in Serum or Hospital Plasma by Bromocresol purple (BCP) dye binding method ID Date Data Source [id number] 04/27/2019 05:35:01 AM EST [facility] Name Value Range Interpretation Description Data Sup porting Code Source(s) Document(s ) Magnesium 2.4 mg/dL 1.6-2.6 [facility] [Mass/volume] [facility] in Serum or Hospital Plasma ID Date Data Source [id number] 04/26/2019 07:12:41 PM [facility] Reviewed Ventilator Settings with onc edgardoing RT Clemencia Phillips.Alarms, Settings, Weaning , Transports. Ventilator wiped d own with bleachwipes.Hoa Sanders, LABORATORY GENETICIST, RT, NM, ARRT Name Value Range Interpretation Code Description Data [facility] rce(s) Supporting Document(s ) ID Date Data Source [id number] 04/26/2019 06:41:08 PM [facility] Bedside and Verbal shift change report carol Ibarra (oncoming nurse) Mel (offgoing nurse). Report included the fo llowing information SBAR, Kardex,Intake/Output and MAR. Name Value Range Interpretation Code Description Data [facility] rce(s) Supporting Document(s ) ID Date Data Source [id number] 04/29/2019 10:51:45 AM [facility] Name Value Range Interpretation Code Description Data [facility] rce(s) Supporting Document(s ) Service [facility] 10-25 WBC/lpf<10 EPI/lpfFEWGRAM POSITIVE RODSMODERATEPSEUDOMONAS AERUGINOSA ID Date Data Source [id number] 04/29/2019 10:51:45 AM [facility] Name Value Range Interpretation Code Description Data Supporting Source(s) Document(s ) Ceftazidime 16 ug/mL Specimen in lab; [facility] - [Susceptibility] results pending Good by Minimum [facility] inhibitory Hospital concentration (ANTONIO) Ciprofloxacin 1 ug/mL Susceptible. [facility] - [Susceptibility] Indicates for Good by Minimum microbiology Taoist inhibitory susceptibilities Hospital concentration only. (ANTONIO) Gentamicin Susceptible. [facility] - [Susceptibility] Indicates for Good by Minimum microbiology Tao[facility] inhibitory susceptibilities Hospital concentration only. (ANTONIO) Tobramycin Susceptible. [facility] - [Susceptibility] Indicates for Good by Minimum microbiology Taoist inhibitory susceptibilities Hospital concentration only. (ANTONIO) Cefepime 8 ug/mL Specimen in lab; [facility] - [Susceptibility] results pending Good by Minimum [facility] concentration (ANTONIO) ID Date Data Source [id number] 04/26/2019 04:26:46 PM EST [facility] Name Value Range Interpretation Description Data Sup porting Code Source(s) Document(s ) pH of Arterial 7.46 7.35-7.4 Above high normal [facility] - Good blood 5 [facility] Carbon dioxide 41 mmHg 32-48 [facility] - Good [Partial [facility]ist pressure] in Hospital Arterial blood Oxygen 96 mmHg 83-108 [facility] - Good [Partial [facility]ist pressure] in Hospital Arterial blood Carbon 31 19-24 Above high normal [facility] - Good dioxide, total mmol/L Taoist [Moles/volume] Hospital in Arterial blood Bicarbonate 29 21-28 Above high normal [facility] - Go od [Moles/volume] mmol/L [facility] in Arterial Hospital blood Oxygen 98 % 94-98 [facility] - Good saturation in [facility] Base excess in 4.9 0-3 Above high normal [facility] - Good Arterial blood mmol/L Taoist by calculation Hospital Body site [facility] - Good [facility] Arterial [facility] - Good patency Wrist Taoist artery --pre Hospital arterial puncture Oxygen gas [facility] - Good flow Oxygen Taoist delivery Hospital system Oxygen/Inspire 50.0 % [facility] - Good d gas [facility] Respiratory Hospital system --on ventilator Ventilation [facility] - Good mode Taoist [Identifier] Hospital Ventilator PEEP 5 [facility] - Good Respiratory [facility] system Hospital Tidal volume 400 [facility] - Good setting [facility] Ventilator Hospital Respiratory 18 [facility] - Good rate [facility] Service 69612 [facility] - Good comment [facility] ID Date Data Source [id number] 04/26/2019 04:16:55 PM EST [facility] - Good [facility] Daily Progress NoteSurgical ICU NoteS/O: 68 male with Parkinson's and today with Respiratory distress and ET Tubeplaced. Pt is sedated and on ventilator. [facility] EEG monitor in place. Discussed wit h Pulmonary, some Leaking around "G_Tube " Exit site . Initial PEG placed 11/17/2018 according to chart. In Apr 03, 2019: G/J Tube (Keen) Was placed .XR ABD (KUB) CLINICAL INDICATION PROVIDED:. "assess J tube position." TECHNIQUE.: An initial AP image of the abdomen was acquired. Additional APimages of the abd omen were acquired after the hand-injection of a small volumeof radiopaque contrast by the patient's nurse into the patient's J-tube. COMPARISON:. 04/02/2019. FINDING S:.The tip of the 2 projects over the mid abdomen, at the level of the mid jejunum .Post injection images demonstrate opacification of loops of mid small macrina l.There is no extraluminal contrast appreciated. A large volume of stool pro jects over the distal colon/rectum. Densities projectover the lower lungs, right great er than left. Consider correlation with chestradiographs. IMPRESSIONIMPRESSION:. Injected radiopaque contrast appears to be contained within the lumen of the midsma ll bowel. There is no evidence of extraluminal contrast. Additional findin gsand recommendations as above. "PEG" ? 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 No pertinent family history.Social HistorySocioeconomic History Marital st atus: SINGLE Spouse name: Not on file Number of children: Not on file Years o f education: Not on file Highest education level: Not on fileTobacco Use Smoking s tatus: Never Smoker Smokeless tobacco: Never UsedSubstance and Sexual Activity Alcoh ol use: No Drug use: NoOther Topics ConcernCurrent Facility-Administered Med ications: vancomycin 50 mg/mL oral solution (compounded) 125 mg, 125 mg, Per G Tube, Q6H, Monica Gomez MD, 125 mg at 04/26/19 1238 meropenem (MERREM) 500 mg in 0.9% sodium chloride (MBP/ADV) 50 mL MBP, 0.5 g,IntraVENous, Q12H, Monica Gomez MD, Last Rate: 16.7 mL/hr at 04/26/19 1113,500 mg at 04/26/19 1113 lamoTRIgine (LaMIC krystian) tablet 100 mg, 100 mg, Per G Tube, QPM, Roberto Burgos MD methylPREDNISolone (PF) (SOLU-MEDROL) injection 40 mg, 40 mg, IntraVENous,Q8H, Krystian Monae MD, 40 m g at 04/26/19 1523 LORazepam (ATIVAN) tablet 1 mg, 1 mg, Per G Tube, QHS, Yonatan on, Mili, DO, 1mg at 04/25/19 2311 lamoTRIgine (LaMICtal) tablet 50 mg, 50 mg, Per G Tube, DAILY, Roberto Burgos MD, 50 mg at 04/26/19 0829 sodium chloride (NS) flush 5-40 mL, 5-40 mL, IntraVENous, Q8H, Krystian Monae MD, 10 mL at 04/26/19 0603 sodium chloride (NS) flush 5-40 mL, 5-40 mL, IntraVENous, PRN, Krystian Monae MD dextrose 5 % - 0.45% NaCl infusion, 50 mL/hr, IntraVENous, CONTINUOUS,Nicole Monae MD pantoprazole (PROTONIX) 40 mg in 0.9% sodium chloride 10 mL injection, 40 mg,IntraVENous, DAILY, Krystian Monae MD, 40 mg at 04/26/19 0828 acetaminophen (TYL ENOL) tablet 650 mg, 650 mg, Oral, Q6H PRN, Krystian Monae MD, 650 mg at 04/26/19 045 3 HYDROcodone-acetaminophen (NORCO) 5-325 mg per tablet 1 Tab, 1 Tab, Oral, Q4HPRN , Krystian Monae MD HYDROmorphone (DILAUDID) syringe 0.5 mg, 0.5 mg, Intra VENous, Q4H PRN,Krystian Monae MD ondansetron (ZOFRAN) injection 4 mg, 4 m g, IntraVENous, Q6H PRN, Krystian Monae MD magnesium hydroxide (MILK OF MAGNESIA) 4 00 mg/5 mL oral suspension 30 mL, 30mL, Oral, DAILY PRN, Krystian Monae MD propofol (DIPRIVAN) 10 mg/mL infusion, 0-50 mcg/kg/min, IntraVENous, TITRATE,Krystian Monae MD, Last Rate: 5 mL/hr at 04/25/192334, 15 mcg/kg/min at04/25/19 233 al buterol-ipratropium (DUO-NEB) 2.5 MG-0.5 MG/3 ML, 3 mL, Nebulization, [id number], Mili Hills DO, 3 mL at 04/26/19 1340 acetylcysteine (MUCOMYST) 100 mg/mL (10 %) nebulizer solution 400 mg, 4 mL,Inhalation, TID RT, Mili Hills DO, 400 mg at 04/26/19 1340 miconazole (MICOTIN) 2 % cream, , Topical, BID, Zuly Bailey, NECKTIE MAKER sodium chloride (NS) flush 5-10 mL, 5-10 mL, IntraVENous, PRN, Akash zNeeta,NECKTIE MAKER budesonide (PULMICORT) 500 mcg/2 ml nebulizer suspension, 500 mcg,N ebulization, BID RT, Krystian Monae MD, 500 mcg at 04/26/19 0822 cinacalcet (SENSI PAR) tablet 60 mg, 60 mg, Oral, DAILY, Mili Hills DO,Stopped at 04/26/19 0900 heparin (porcine) injection 5,000 Units, 5,000 Units, SubCUTAneous, Q12H,N Mili buchanan DO, 5,000 Units at 04/26/19 0603No Known AllergiesVitals: 04/26/19 1 300 04/26/19 1341 04/26/19 1400 04/26/19 1500BP: 130/64 127/60 124/57Pulse: 69 6 9 83 87Resp: 18 18 18 18Temp:SpO2: 99% 97% 94% 95%Weight:Height:Review of SystemsCo nstitutional: Negative for activity change, appetite change, chills,diaphoresis, fat igue, fever and unexpected weight change.HENT: Negative for congestion, no sebleeds, sinus pressure and troubleswallowing.Eyes: Negative for dis charge and itching.Respiratory: Positive for shortness of breath. Negative for apnea, cough,choking, chest tightness, wheezing and stridor.Cardiovascular: Negative for nelda st pain, palpitations and leg swelling.Gastrointestinal: Positive for diarrhea. Negative for abdominal distention,abdominal pain, constipation, nausea and vomiting.Genitourinary: Negative for decreased urine volume, difficulty u rinating andhematuria.Musculoskeletal: Negative for arthralgias.Skin: Negative for color change and pallor.Allergic/Immunologic: Positive fo r immunocompromised state. Negative forenvironmental allergies and food des rgies.Neurological: Positive for tremors and weakness. Negative for dizziness,seizure s and light-headedness.Psychiatric/Behavioral: Negative for agitation.Physical ExamConstitutional: Appearance: He is normal weight. He is ill-appearing.HENT: Head: Normocephalic.Eyes: General: No scleral icterus.Neck: Musculoskeletal: No muscular tenderness.Cardiovascular: He art sounds: No murmur. No friction rub.Pulmonary: Effort: Respiratory dis tress present. Breath sounds: Rhonchi and rales present. No wheezing.Abdominal: General: There is no distension. Palpations: Abdomen is soft. There is no shifting dullness, fluid wave,hepatomegaly, splenomegaly, mass or pulsatile mass. Tenderness: There is no tenderness. There is no right CVA tenderness, leftCVA tendern ess, guarding or rebound. Negative signs include Pratt's sign,Rovsing's sign, Mc Bony's sign, psoas sign and obturator sign. Hernia: No hernia is present.Musculosk eletal: General: No swelling, tenderness, deformity or signs of injury. Right lo wer leg: No edema. Left lower leg: No edema.Lymphadenopathy: Cervical: No ce rvical adenopathy.Skin: Coloration: Skin is not jaundiced. Findings: No bruising.N eurological: Motor: Weakness present.Recent Results (from the past 24 hour(s))C. DIF FICILE (DNA) Collection Time: 04/25/19 5:15 PMResult Value Ref Range C. difficile (D NA) (A) NEG TEST RESULT IS INCONCLUSIVE. PLEASE SUBMIT A NEW SPECIMEN FOR ANALYSI S.BLOOD GAS, ARTERIAL Collection Time: 04/25/19 6:20 PMResult Value Ref Range pH 7.46 (H) 7.35 - 7.45 PCO2 46 32 - 48 mmHg PO2 118 (H) 83 - 108 mmHg CO2, TOTAL 34 (H) 19 - 24 mmol/L BICARBONATE 33 (H) 21 - 28 mmol/L O2 SAT 99 (H) 94 - 98 % BASE EXCE SS 7.7 (H) 0 - 3 mmol/L SITE RIGHT RADIAL MIRANDA'S TEST POSITIVE DEVICE BIPAP FIO2 45.0 % MODE BIPAP PEEP/CPAP 7 PRESSURE SUPPORT 14 RATE 16 Performed by [id number] , 12 LEAD, INITIAL Collection Time: 04/25/19 8:51 PMResult Value Ref Range Ventricula r Rate 96 BPM Atrial Rate 96 BPM P-R Interval 138 ms QRS Duration 80 ms Q-T Interval 3 42 ms QTC Calculation (Bezet) 432 ms Calculated P [place] 52 degrees Calculated R [place] 51 degrees Calculated T [place] 43 degrees Diagnosis Normal sinus rhythmNo rmal ECGWhen compared with ECG of 19-APR-2019 09:58,PREVIOUS ECG IS PRESENTBLOOD GAS, ARTERIAL Collection Time: 04/25/19 10:14 PMResult Value Ref Range pH 7.41 7.35 - 7.45 PCO2 52 (H) 32 - 48 mmHg PO2 114 (H) 83 - 108 mmHg CO2, TOTAL 35 (H) 19 - 24 mmo l/L BICARBONATE 33 (H) 21 - 28 mmol/L O2 SAT 99 (H) 94 - 98 % BASE EXCESS 6.9 (H) 0 - 3 mmol/L SITE RIGHT RADIAL MIRANDA'S TEST POSITIVE DEVICE VENTILATOR FIO2 60.0 % M ODE Pressure regulated volume control PEEP/CPAP 5 Tidal volume 400 RATE 18 [place] [id number] W/O DIFF Collection Time: 04/26/19 4:30 AMResult Value Ref Range WBC 9.2 4.8 - 10.6 K/uL RBC 2.89 (L) 4.70 - 6.00 M/uL HGB 8.8 (L) 14.0 - 18.0 g/dL H CT 27.7 (L) 42.0 - 52.0 % MCV 95.8 (H) 81.0 - 94.0 FL MCH 30.4 27.0 - 35.0 PG MCHC 31. 8 30.7 - 37.3 g/dL RDW 17.9 (H) 11.5 - 14.0 % PLATELET 502 (H) 130 - 400 K/uL MPV 9.3 9.2 - 11.8 FL NRBC 0.0 0 PER 100 WBC ABSOLUTE NRBC 0.00 0.0 - 0.01 K/uLRENAL FUNCTION PANEL Collection Time: 04/26/19 4:30 AMResult Value Ref Range Sodium 142 136 - 145 mmol/L Potassium 3.6 3.5 - 5.1 mmol/L Chloride 108 (H) 98 - 107 mmol/L CO2 29 21 - 32 mmol/L Anion gap 8 (L) 10 - 20 mmol/L Glucose 91 74 - 106 mg/dL BUN 33 (H) 7 - 18 mg/dL Creatinine 2.05 (H) 0.70 - 1.30 mg/dL GFR est AA 42 (L) >60 ml/min/1.73m 2 GFR est non-AA 34 (L) >60 ml/min/1.73m2 Calcium 8.9 8.5 - 10.1 mg/dL Phosphorus 2.2 (L) 2.5 - 4.9 mg/dL Albumin 1.4 (L) 3.5 - 4.7 g/dLMAGNESIUM Collection Time: 04/26 4:30 AMResult Value Ref Range Magnesium 2.5 1.6 - 2.6 mg/dLLACTIC ACID Collectio n Time: 04/26/19 4:50 AMResult Value Ref Range Lactic acid 1.1 0.4 - 2.0 MMOL/LA/ P: Previous G/J Tube in small bowel on KUB and Gastrografin via J-Tube Limb in04/03XR ABD (KUB) CLINICAL INDICATION PROVIDED:. "assess J tube position." KEVIN HNIQUE.: An initial AP image of the abdomen was acquired. Additional APimages of the abdomen were acquired after the hand-injection of a small volumeof radio paque contrast by the patient's nurse into the patient's J-tube. COMPARISON:. 04/02. FINDINGS:.The tip of the 2 projects over the mid abdomen, at the level of th e mid jejunum.Post injection images demonstrate opacification of loops of mi d small bowel.There is no extraluminal contrast appreciated. A large volume of stool projects over the distal colon/rectum. Densities projectover the lower lungs, r ight greater than left. Consider correlation with chestradiographs. IMPRESSIONIMPRESS ION:.Injected radiopaque contrast appears to be contained within the lumen of the mid small bowel. There is no evidence of extraluminal contrast. Additional findin gsand recommendations as above.Possible repeat this Study in AM or when pt stabl eCould be at bedsideET -Tube in placeEEG monitor in place Name Value Range Interpretation Code Description Data Harriett rce(s) Supporting Document(s ) ID Date Data Source [id number] 04/26/2019 02:57:59 PM EST [facility] Critical Care Progress N [facility]MAR[facility].Krystian Monae MD., F.C.C.P.Stella Hamilton MD., F.C.C.P. [address] [place] [address] [place] [address] Name: Evelio JohnsoninDOB: 1950MRN: [id number]: 04/26/2019Subjective:Mr. Carlin is a 68 y.o. year old male who is being seen forACUTE RESPIRATORY FAILURE , NOW HE IS INTUBATED AND ON VENTILAT OR . PATIENT IS SEDATED WITH PROPOFOL . CHEST XRAY 04/26/2019 ET BELOW C LAVICLE , SEVERE COPD SHOWS R L L,R ML INFILTRATE , LLL INFILTERATE / ATELECT ASES ARE LESSPLEURAL EFFUSIONS ARE LESS . ALBUMIN = 1.4 SEVERE MAL NUTRITION B ED RIDDEN , NON VERBAL PATIENT ON LAMICTAL FOR POSSIBLE SEIZURE , ON EEG MONITOR ING DR BURGOS FOLLOWINGPATIENT TEMP = 102. 8 TO 100.6 SNOGRAM LOWER EXT . 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) Pneumoni a Psychiatric disorder schizophrenia Pulmonary emboli (HCC) Schizophrenia (H CC)Allergy:No Known AllergiesVital Signs:Patient Vitals for the past 24 hrs : BP Temp Pulse Resp [id number]/26/19 1400 127/60 - 83 18 94 %04/26/19 1341 - - 69 18 97 % 04/26/19 1300 130/64 - 69 18 99 %04/26/19 1200 127/68 98.3 F (36.8 C) 73 18 94 % 04/26/19 1100 129/63 - 74 18 94 %04/26/19 1000 103/65 - 78 21 94 %04/26/19 0900 95 /57 - 86 18 96 %04/26/19 0823 - - 80 19 96 %04/26/19 0800 108/66 (!) 100.8 F (38.2 C) 74 18 93 %04/26/19 0700 97/51 - 72 18 91 %04/26/19 0600 99/55 - 78 18 92 % 0 0500 123/57 - 72 18 92 %04/26/19 0400 128/58 (!) 102.8 F (39.3 C) 74 18 92 % 04/26/19 0300 131/58 - 74 18 94 %04/26/19 0226 - - 68 18 94 %04/26/19 0200 125/81 - 71 18 96 %04/26/19 0100 126/83 - 66 18 97 %04/26/19 0000 124/69 100.3 F (37.9 C) - - -04/25/19 2345 - - 82 - -04/25/19 2300 124/69 - 90 (!) 5 97 %04/25/19 2230 - - 73 18 96 %04/25/19 2200 124/74 (!) 101.5 F (38.6 C) 86 19 99 %04/25/19 1946 129/78 98.6 F (37 C) 80 24 100 %04/25/19 1521 136/82 98.8 F (37.1 C) 81 27 98 %Pulse OX:SpO2 Readings from Last 6 Encounters:04/26/19 94%04/16/19 100%03/16 07/01 99%03/17/19 92%02/19/19 96%02/18/19 92%@LASTSAO2(6)@Intake/Output:Last shift : 04/26 700 - 04/26 1899In: -Out: 170 [Urine:170]Last 3 shifts: 04/24 1900 - 0 04/26 699In: 3425.1 [I.V.:3425.1]Out: 700 [Urine:700]Intake/Output Summary (Last 2 4 hours) at 04/26/2019 1431Last data filed at 04/26/2019 1200Gross per 24 hourIntake 24 00.08 mlOutput 570 mlNet 1830.08 mlHemodynamics:.@MAP.@CVPVentilator Sett ings:Ventilator Mode: PRVCRespiratory RateInsp Time (sec): 1 secI:E Ratio: 1:2 .3Ventilator VolumesVt Set (ml): 400 mlVt Exhaled (Machine Breath) (ml): 400 mlVt Spont (ml): 389 mlVe Observed (l/min): 7.4 l/minVentilator PressuresPIP Observed (c m H2O): 17 cm H2OMAP (cm H2O): 9PEEP/VENT (cm H2O): 5 cm C61Fleo Rate Tidal Volume Pre ssure FiO2 PEEPPRVC 400 ml 50 % 5 cm V59Dcgj airway pressure: 17 cm W0RBurheq ventilation: 7.4 l/minARDS network Guidelines: Lung protective strategy and Pl pressure goals 30CMS less than or equal to 30Physical Exam:ORAL INTUBATION , COMFORTABLE , TODAY COLOR IS BETTER ,MODERATE E T SECRETIONS General : SEDATED WITH PROPOFOL . cooperative, MODERATE RESPIRATORYdistress, appears stated age. Head: Normocephalic, without obvious abnormality, atraumatic. Eyes: Conjunctivae/corneas clear. PERRL, EOMs intact. No se: Nares normal. No drainage or sinus tenderness Throat: Lips, mucos a, and tongue normal Neck: Supple, symmetrical, trachea midline, no adenopathy,thyroid: no enlargement/tenderness/nodules, no carot id bruit and no JVD. Lungs: AIR ENTRY IN LUNGS IS BETTER ON VENTILATOR , WHEEZING ARELESS +1 ,RALES + R L L AND L L L , DULLNESS IS LESS , NO PLEURAL R UB toauscultation bilaterally. Chest Wall: No tenderness or deformity. H eart: Regular rate and rhythm, S1, S2 normal, no murmur, click,rub or NO gallop. Abdomen: Soft, non-tender. Bowel sounds normal. No masses, P E G + No organomegaly. Extremities: CONTRACTED Extremities normal, atraumat ic, no cyanosis or +2Edema.ANASARCA Pulses: 4+ bilaterally Ski n: Skin color, texture, turgor normal. No rashes or lesions. Neurologic: CNII-X II intact. No focal motor or sensory deficit. ON EEGMONITORINGDATA:Current Facility- Administered MedicationsMedication Dose Route Frequency vancomycin 50 mg/mL oral solu tion (compounded) 125 mg 125 mg Per G Tube Q6H meropenem (MERREM) 500 mg in 0.9% s odium chloride (MBP/ADV) 50 mL MBP 0.5 gIntraVENous Q12H lamoTRIgine (LaMICtal ) tablet 100 mg 100 mg Per G Tube QPM LORazepam (ATIVAN) tablet 1 mg 1 mg Per G Tube QHS lamoTRIgine (LaMICtal) tablet 50 mg 50 mg Per G Tube DAILY sodium chlor wade (NS) flush 5-40 mL 5-40 mL IntraVENous Q8H sodium chloride (NS) flush 5-40 mL 5-40 mL IntraVENous PRN dextrose 5 % - 0.45% NaCl infusion 50 mL/hr IntraVENou s CONTINUOUS pantoprazole (PROTONIX) 40 mg in 0.9% sodium chloride 10 mL injection 40 mgIntraVENous DAILY acetaminophen (TYLENOL) tablet 650 mg 650 mg Oral Q6H PRN HYDROcodone-acetaminophen (NORCO) 5-325 mg per tablet 1 Tab 1 Tab Oral Q4HPRN HYDROmorphone (DILAUDID) syringe 0.5 mg 0.5 mg IntraVENous Q4H PRN ondansetron (ZOF RAN) injection 4 mg 4 mg IntraVENous Q6H PRN magnesium hydroxide (MILK OF MAGNESIA) 400 mg/5 mL oral suspension 30 mL 30mL Oral DAILY PRN propofol (DIPRIVAN) 10 mg/mL infusion 0-50 mcg/kg/min IntraVENous TITRATE albuterol-ipratropium (DUO-NEB) 2.5 MG- 0.5 MG/3 ML 3 mL Nebulization Q6HWA RT acetylcysteine (MUCOMYST) 100 mg/mL (10 %) nebulizer solution 400 mg 4 mLInhalation TID RT miconazole (MICOTIN) 2 % cream Topical BID sodium chloride (NS) flush 5-10 mL 5-10 mL IntraVENous PRN budesonide (PULMICORT) 500 mcg/2 ml nebulizer suspension 500 mcg NebulizationBID RT cinacalcet (SENSIPAR) tablet 60 mg 60 mg Oral DAILY heparin (porcine) injection 5,000 Units 5,000 Units SubCUTAneous Q12H dextrose 5 % - 0.45% NaCl infusion 100 mL/hr IntraVE Nous CONTINUOUSTelemetry: [x]Sinus []A-flutter []Paced []A-fib []Multiple P VC'sLabs:Recent Results (from the past 24 hour(s))BLOOD GAS, ARTERIAL Collection T jose alejandro: 04/25/19 6:20 PMResult Value Ref Range pH 7.46 (H) 7.35 - 7.45 PCO2 46 32 - 48 mmHg PO2 118 (H) 83 - 108 mmHg CO2, TOTAL 34 (H) 19 - 24 mmol/L BICARBONATE 33 (H) 21 - 28 mmol/L O2 SAT 99 (H) 94 - 98 % BASE EXCESS 7.7 (H) 0 - 3 mmol/L SITE RIGHT R ADIAL MIRANDA'S TEST POSITIVE DEVICE BIPAP FIO2 45.0 % MODE BIPAP PEEP/CPAP 7 PRESSURE S UPPORT 14 RATE 16 Performed by [id number], 12 LEAD, INITIAL Collection Time: 04/25/19 8:51 PMResult Value Ref Range Ventricular Rate 96 BPM Atrial Rate 96 BPM P-R Inter seema 138 ms QRS Duration 80 ms Q-T Interval 342 ms QTC Calculation (Bezet) 432 ms Ca lculated P [place] 52 degrees Calculated R [place] 51 degrees Calculated T [place] 43 degrees Diagnosis Normal sinus rhythmNormal ECGWhen compared with ECG of 19-APR-2019 09:58,P REVIOUS ECG IS PRESENTBLOOD GAS, ARTERIAL Collection Time: 04/25/19 10:14 PMResult Value Ref Range pH 7.41 7.35 - 7.45 PCO2 52 (H) 32 - 48 mmHg PO2 114 (H) 83 - 108 mm Hg CO2, TOTAL 35 (H) 19 - 24 mmol/L BICARBONATE 33 (H) 21 - 28 mmol/L O2 SAT 99 (H) 94 - 98 % BASE EXCESS 6.9 (H) 0 - 3 mmol/L SITE RIGHT RADIAL MIRANDA'S TEST PO SITIVE DEVICE VENTILATOR FIO2 60.0 % MODE Pressure regulated volume control PEEP/C PAP 5 Tidal volume 400 RATE 18 Performed by [id number] W/O DIFF Collection Time: 04/26 4:30 AMResult Value Ref Range WBC 9.2 4.8 - 10.6 K/uL RBC 2.89 (L) 4.70 - 6.00 M/uL HGB 8.8 (L) 14.0 - 18.0 g/dL HCT 27.7 (L) 42.0 - 52.0 % MCV 95.8 (H) 81.0 - 94 .0 FL MCH 30.4 27.0 - 35.0 PG MCHC 31.8 30.7 - 37.3 g/dL RDW 17.9 (H) 11.5 - 14.0 % P LATELET 502 (H) 130 - 400 K/uL MPV 9.3 9.2 - 11.8 FL NRBC 0.0 0 PER 100 WBC ABSOLUTE NRBC 0.00 0.0 - 0.01 K/uLRENAL FUNCTION PANEL Collection Time: 04/26/19 4:30 AMResult Value Ref Range Sodium 142 136 - 145 mmol/L Potassium 3.6 3.5 - 5.1 mmol/L Chloride 108 (H) 98 - 107 mmol/L CO2 29 21 - 32 mmol/L Anion gap 8 (L) 10 - 20 mmol/L Glucose 9 1 74 - 106 mg/dL BUN 33 (H) 7 - 18 mg/dL Creatinine 2.05 (H) 0.70 - 1.30 mg/dL GF R est AA 42 (L) >60 ml/min/1.73m2 GFR est non-AA 34 (L) >60 ml/min/1.73m2 Calcium 8.9 8.5 - 10.1 mg/dL Phosphorus 2.2 (L) 2.5 - 4.9 mg/dL Albumin 1.4 (L) 3.5 - 4.7 g/dL MAGNESIUM Collection Time: 04/26/19 4:30 AMResult Value Ref Range Magnesium 2.5 1 .6 - 2.6 mg/dLLACTIC ACID Collection Time: 04/26/19 4:50 AMResult Value Ref Range Lactic acid 1.1 0.4 - 2.0 MMOL/LABG:Recent Labs 04/25/201720PH 7.41 7 .46*PCO2 52* 46PO2 114* 118*HCO3 33* 33*FIO2 60.0 45.0Recent Glucose Results:Lab Resu ltsComponent Value Date/Time GLU 91 04/26/2019 04:30 AMCULTURES:All Micro Re sults Procedure Component Value Units Date/Time CULTURE, URINE [[id number]] Col lected: 04/25/19 1147 Order Status: Completed Specimen: Urine from Clean ca tch Updated: Special Requests: NO SPECIAL REQUESTS Culture result: NO GROWTH 1 DAY C. DIFFICILE (DNA) [[id number]] Collected: 04/25/19 1715 Order Status: Completed Specimen: Stool Updated: 04/26/19 1036 CULTURE, RESPIRATORY/SPUTU M/BRONCH W GRAM STAIN [[id number]] Order Status: Sent Specimen: Sputum from Tra cheal Aspirate C. DIFFICILE (DNA) [[id number]] Order Status: Sent Specimen: Stool CUL TURE, BLOOD [[id number]] Collected: 04/25/19 1210 Order Status: Completed Specimen: Blood Updated: 04/26/19 08 Special Requests: NO SPECIAL REQUESTS Culture r esult: NO GROWTH AFTER 19 HOURS CULTURE, BLOOD [[id number]] Collected: 04/25/19 1 205 Order Status: Completed Specimen: Blood Updated: 04/26/19 08 Special Request s: NO SPECIAL REQUESTS Culture result: NO GROWTH AFTER 19 HOURS CULTURE, BLOOD [[id number]] Collected: 04/20/19 1440 Order Status: Completed Specimen: Blood Upda mikel: 04/26/19817 Special Requests: NO SPECIAL REQUESTS Culture result: NO HAIDER WTH 6 DAYS CULTURE, BLOOD [[id number]] Collected: 04/20/19 1447 Order Status: Completed Specimen: Blood Updated: 04/26/19817 Special Requests: NO SPEC IAL REQUESTS Culture result: NO GROWTH 6 DAYS CULTURE, BLOOD [[id number]] (Abnorm al) Collected: 04/19/19 1005 Order Status: Completed Specimen: Blood Updated: 12/02 0731 Special Requests: NO SPECIAL REQUESTS GRAM STAIN GRAM POSITIVE COCC I IN [employer]USTERS ANAEROBIC BOTTLE CALLED TO AND READ BACK BY ROB LEDEZMA,RN, ED, 0982 ON 04/20/19 TORISMIRAGLIA Culture result: STAPHYLOCOCCUS EPIDERMIDIS : Refer to p revious culture(s) for susceptibilityresults CULTURE, BLOOD [[id number]] (Abnormal) (Susceptibility) Collected: Order Status: Completed Specimen: Yunier d Updated: 04/22/19 0729 Special Requests: NO SPECIAL REQUESTS GRAM STAIN GRAM PO SITIVE COCCI IN CLUSTERS ANAEROBIC BOTTLE CALLED TO AND READ BACK BY ROB KNOX, RN, ED, AT 0953 ON 04/20/19 TORISMIRAGLIA Culture result: STAPHYLO COCCUS EPIDERMIDISXR Results (most recent):Results from Hospital Encounter encounter on 04/19/19XR CHEST PORT Narrative CHEST ONE VIEWHISTORY: Intubation.COMPAR GARTH: Previous studies.The patient has been intubated. The endotracheal tube tip is approximately 5.9cms. above the tian. The left pleural effusion has resolved. Ther e has been nochange of a small right pleural effusion.No other significant change is noted. Impression IMPRESSION: Endotracheal tube tip approximately 5.9 cms. above th ecarina.Resolution of left pleural effusion.CT Results (most recent):Result s from Hospital Encounter encounter on 04/19/19CT CHEST ABD PELV WO CONT Narrat britni Referring Physician: MILI HILLSPatient Name: EVELIO MALAVE REPORT FROM IMAGING ON [facility]: CT chest without contrast and CT abdomen pelvis w ithoutcontrastDATE OF EXAM: 2019-04-20 20:52:12IMAGES: 681HISTORY: reduced del th sounds right lung, LLQ tendernessComparison: 03/14/19 and 9FINDINGS: Axial images of the chest, abdomen and pelvis areobtained without iv contra st.Chest: Mediastinal assessment is limited without contrast. Imagequality limited b y artifacts. Patchy lung opacities right greaterthan left similar to prior. Small pleural effusions. Vascularincluding coronary calcifications. Mediastinum kanika ears shifted tothe right. Left hemidiaphragm is elevated.Abdomen and pelvis: Nonspeci fic bowel pattern, with post surgicalchanges on the left. No definite free air. Organ assessmentlimited without iv contrast. No significant free fluid or freeair.No bow el obstruction or abscess seen. Catheter and air in thebladder which is not well asse ssed. Left hip hardware partiallyseen with old fracture deformity. G-J tube is pres ent. Ventralhernia right of midline at abdominal wall with multiple smallbowel loops without obstructive pattern. Mild right muscleswelling with possible hematoma an d calcification at right groinimage 117/120. Degenerative bony changes. Multiple like ly chroniccompression deformities at thoracic and lumbar spine. BilateralL5-S1 spondyl olysis and anterolisthesis. Impression IMPRESSION: Right greater than left lung infiltrates and effusions.No bowel obstruction. 2 cm hyperdensity at a macrina l loop in leftpelvis image 90/120, possibly ingested material, or a tubefragment or post surgical change.Ventral abdominal hernia seen.See above.One or more of the follow ing dose reduction techniques were used:automated exposure control, adjustm ent of the mA and/or kVaccording to patient size, use of iterative reconstructivetec hnique.THIS DOCUMENT HAS BEEN ELECTRONICALLY SIGNEDFrsofia Edge MD04/20/2019 22:43 GINA Jenkins. Please call [facility] Consultant [phone] ([phone]) withquestions.T his report was electronically signed by:Marcie Edge MD 04/20/2019 10:44 PMImages:[email or web address] TEXTThis SmartLink requires a parameter for processing. Parameters are variableswhich can be added to the original SmartLink name. This allows you to reque stspecific information by giving the SmartLink precise direction.The BSILAS TIMGCAT SmartLink accepts (as a parameter) an external procedure IDor an anatomical re gion. Typically, this external ID would be the CPT code.You can also request the nu mber of procedures to be displayed by this SmartLink.To indicate the number, type t he procedure ID or anatomical regions followed bya colon and then the number o f procedures. To display all occurences for thatparticular procedure ID/anatomical r egions, type an asterisk in place of thenumber. To obtain only the last occur ence, type the procedure ID/anatomicalregions without the colon, number, or asterisk.T his SmartLink can display other procedures in the same procedure category if aparamete r is set.The SmartLink will display the last x cases of the procedure or anatomicalre gions you entered.Example: .BSHSILASTIMGCAT[[id number] example wo uld display results for the last three orders with an externalprocedure ID of [id number].T he patient is: [] acutely ill Risk of deterioration: [] moderate [x] criticall y ill [x] highActive Problems: Pneumonia (11/08/2018) Acute hypoxemic respiratory failure (HCC) (03/25/2019) COPD with acute exacerbation (HCC) (04/19/2019) Acute on chronic respiratory failure with hypoxia and hypercapnia (HCC)(04/19/2019) Scrotal torsten h (04/21/2019)IMPRESSION:11 ACUTE HYPERCAPNIC AND HYPOXIC RESPIRATORY FA ILURE DUE TO SEVERECOPD / PNEUMONIA R ML , R L L1. ATELECTASIS L L L RESOLVED WITH INTUBATION2. PLEURAL EFFUSION VS ATELECTASIS RT BASES .BETTER3. SEVER E COPD 4. SEVERE METABOLIC ENCEPHALOPATHY5. MENTAL RETARDATION6. S EIZURE ON LAMICTAL7. PNEUMONIA 8. SEPSIS L A = 2.59. HX P.10. BACTEREMIA G + COCCI - STAPH [id number]. SEVERE MAL NUTRITION ,12. ALB = 1.4 SEVERE HY [id number]. POSSIBLE 2 CM SEGMENT OF TUBE IN ILEUM EPR RADIOLOGY ON CATSCAN REPORT Plan: 1. 2. SEIZURES PER NEUROLOGY , HE WILL BENEFIT FROM INTUBA TION , AWAITING CALLBACK FROM HIS NEPHEW DR SANDRO FRANCIS , IF FAMILY AGREES WI LL INTUBATE3. DUO NEB Q 4 H4. MUCOMYST 10 % VIA MINI NEB Q 8 H5. IV ZOSYN AND V ANCOMYCIN 6. CONT BIPAP SUPPORT AT NIGHT , DISCUSSED WITH STAFF , ORDERS FORBIO PAP GIVEN 7. LASIX 20 MG I V P NOW 8. DISCUSSED WITH RN ON BED SIDE 9. SHAUNA NT IS NOT CLEARED FOR SURGERY DUE TO RESPIRATORY [id number]. DISCUSSED WITH DR HILLS ON BED SIDE , SHE AGREES FOR [id number]. TRANSFER TO [facility] SS[facility] WITH MISS STRANGE RN IN ICU PLAN:1. ABG NOW2. CONT MEROPENEM AND VANCOM YCIN3. PATIENT WILL NEED J RICHELLE FOR PERSISTENTLY LEAKING P E G TUBE4. ADD PROSTAT FOR HYPOALBUMINEMIA5. PATIENT HAVE SEVER MENTAL RETARDATIONS AND REPE ATED ASPIRATIONS , HE WILNEED TRACHEOSTOMY TO KEEP HIS AIR WAYS PATENT , DISCUSSE D WITH HIS SISTERSRA WHYTE AND HC P DR CACERES E N T , HE AGREES6. DUO NEB , I V SOLUMEDROL FO COPD7. MUCOMYST TO LOOSEN TRACHEOBRONCHIAL SECTERTIONS 8. CHEST PT9. PROGNOSIS IS GUARDEDMy assessment, plan of care, findings, medi cations, side effects etc werediscussed with:[x]nursing []PT/OT[x]respiratory th erapy [x]Dr. IVERSON[x]family SISTER KIRSTIN WHYTE ON BED SIDE []Critical Care P rovided 60 minutes non procedure based.Krystian Monae MD F.C.C.PGualberto Name Value Range Interpretation Code Description Data Harriett rce(s) Supporting Document(s ) ID Date Data Source [id number] 04/26/2019 01:03:00 PM [facility] Progress NoteEmanuel Wxtrgzpfx51 y.o.Adm it Date: 04/19/2019Subjective:Patient transferred to ccu due to resp failurePt intubatedReview of systems not obtained due to patient factors.Objective:Visit Vital sBP 129/63 (BP 1 Location: Left arm, BP Patient Position: At rest)Pulse 74Temp ( !) 100.8 F (38.2 C)Resp 18Ht 5' 2" (1.575 m)Wt 55.5 kg (122 lb 6.4 oz)SpO2 94%BMI 22.39 kg/m Intake/Output Summary (Last 24 hours) at 04/26/2019 1259Last data filed at 04/26/2019 0700Gross per 24 hourIntake 2400.08 mlOutput 400 mlNet 2000.08 mlCur rent Facility-Administered MedicationsMedication Dose Route Frequen cy Provider Last Rate Last Dose vancomycin 50 mg/mL oral solution (compounded) 125 mg 125 mg Per G Tube [id number] severino MD 125 mg at 04/26/19 1238 meropenem (MERR EM) 500 mg in 0.9% sodium chloride (MBP/ADV) 50 mL MBP 0.5 gIntraVENous Q12H Monica Gomez MD 16.7 mL/hr at 04/26/19 1113 500 mg at04/26/19 1113 lamoTRIgine (LaMICta l) tablet 100 mg 100 mg Per G Tube QPM Roberto Burgos MD LORazepam (ATIVAN) tablet 1 m g 1 mg Per G Tube QHS Mili Hills DO 1 mgat 04/25/19 2311 lamoTRIgine (LaMIC krystian) tablet 50 mg 50 mg Per G Tube DAILY Roberto Burgos MD50 mg at 04/26/19 0829 s odium chloride (NS) flush 5-40 mL 5-40 mL IntraVENous Q8H Krystian Monae MD10 mL a t 04/26/19 0603 sodium chloride (NS) flush 5-40 mL 5-40 mL IntraVENous PRN Krystian Monae MD dextrose 5 % - 0.45% NaCl infusion 50 mL/hr IntraVENous CONTINUOU S Krystian Monae MD pantoprazole (PROTONIX) 40 mg in 0.9% sodium chloride 10 mL inje ction 40 mgIntraVENous DAILY Krystian Monae MD 40 mg at 04/26/19 0828 acetaminoph en (TYLENOL) tablet 650 mg 650 mg Oral Q6H PRN Krystian Monae MD650 mg at 04/26/19 0453 HYDROcodone-acetaminophen (NORCO) 5-325 mg per tablet 1 Tab 1 Tab Oral Q4HPRN S Krystian helms MD HYDROmorphone (DILAUDID) syringe 0.5 mg 0.5 mg IntraVENous Q4H P RN Krystian Monae MD ondansetron (ZOFRAN) injection 4 mg 4 mg IntraVENous Q6H PRN Krystian Monae MD magnesium hydroxide (MILK OF MAGNESIA) 400 mg/5 mL oral suspension 30 mL 30mL Oral DAILY PRN Krystian Monae MD enoxaparin (LOVENOX) injection 40 mg 4 0 mg SubCUTAneous Q24H Krystian Monae MD Stopped at 04/25/19 1900 propofol (DIPR MATTHEW) 10 mg/mL infusion 0-50 mcg/kg/min IntraVENous TITRATESKrystian helms MD 5 m L/hr at 04/25/19 2335 15 mcg/kg/min at 04/25/19 2335 albuterol-ipratropium (DU O-NEB) 2.5 MG-0.5 MG/3 ML 3 mL Nebulization Q6HWA Mili Diaz DO 3 mL at 0821 acetylcysteine (MUCOMYST) 100 mg/mL (10 %) nebulizer solution 400 mg 4 mLInhalation TID RT Mili Hills DO 400 mg at 04/26/19 0821 miconazole (ANTONIO OTIN) 2 % cream Topical BID Zuly Lacey NP sodium chloride (NS) flush 5-10 mL 5-10 mL IntraVENous PRN Neeta Coleman NP budesonide (PULMICORT) 500 mcg/2 ml nebu lizer suspension 500 mcg NebulizationBID RT Krystian Monae MD 500 mcg at 04/26/19 0822 cinacalcet (SENSIPAR) tablet 60 mg 60 mg Oral DAILY Mili Hills, DOStopped at 04/26/19 0900 heparin (porcine) injection 5,000 Units 5,000 Units SubCU TAneous Q12H Mili Hills DO 5,000 Units at 04/26/19 0603 dextrose 5 % - 0.45% N aCl infusion 100 mL/hr IntraVENous CONTINUOUS James Iverson MD 100 mL/hr at 04/25/19 2312 100 mL/hr at 04/25/19 2312Physical Exam:Physical Exam:General: intubatedNeck: SuppleLungs: Scattered rhonchiHeart: S1, P4Inwmggm: Soft, n on-tender. Bowel sounds normal. No masses, No organomegaly.Extremities: EdemaData R eview:CBC w/DiffRecent Labs 04/25/201110WBC 9.2 10.1RBC 2.89* 3.02*H GB 8.8* 9.2*HCT 27.7* 29.8*MCV 95.8* 98.7*MCH 30.4 30.5MCHC 31.8 30.9RDW 17.9* 18.0* R ecent Labs 04/25/2011565630EKNYN -- 13*EOS -- 1BASOS -- 0RDW 17.9* 1 8.0* Lab ResultsComponent Value Date/Time PLATELET 502 (H) 04/26/2019 04:30 AMComp rehensive Metabolic ProfileRecent Labs 04/25/20214 04/25/201720 0 04/24/200535NA 142 -- -- 143 141K 3.6 -- -- 3.4* 3.3*CL 108* -- -- 107 105CO2 29 35* 34* 34* 31BUN 33* -- -- 28* 22*CREA 2.05* -- -- 1.82* 1.62* Recent Labs 04/25/200404/24/200535CA 8.9 9.0 9.2PHOS 2.2* 2.6 1.8*ALB 1.4* 1.5* 1.6*X-RAY (Last 24 Hours)Xr Chest Sngl VResult Date: 04/25/2019CHEST one view HISTORY: Pneumonia. COPD. COMPARISON: 04/23/2019. There is a poorins piratory effort which compromises this interpretation. The patient's chinalso o bscures the right upper lobe. A repeat study is suggested. There has beenno change o f small bilateral pleural effusions.There is no gross evidence ofcongestion, infiltra tasha, or a left pneumothorax.IMPRESSION: No significant change. Limited study. Poor inspiratory effort.Xr Chest PortResult Date: 04/26/2019CHEST ONE VIEW HISTORY: Intubat ion. COMPARISON: Previous studies. The patienthas been intubated. The endotrach eal tube tip is approximately 5.9 cms. abovethe tian. The left pleural effusi on has resolved. There has been no change ofa small right pleural effusion. No other s ignificant change is noted.IMPRESSION: Endotracheal tube tip approximately 5.9 cms. above the tian.Resolution of left pleural effusion.Duplex Lower Ext Venous LeftResult Date: 04/26/2019LEFT LOWER EXTREMITY DOPPLER History: Pain and swel ling. High-resolution linearsonography of the left lower extremity was performed using Color Doppler Flowand Duplex Doppler spectral sonography. Findings: There is no evidence of deepvein thrombosis. The common femoral, visualized portions of t he greatersaphenous, proximal, mid and distal superficial femoral and popliteal veins werepatent. Spontaneous and phasic flow was noted. Normal compression and responseto augmentation was noted. The anterior tibial vein and posterior tibial veinare not do cumented. The peroneal vein is patent. .IMPRESSION: No evidence of deep vein th rombosis. Suboptimal study.Duplex Upper Ext Venous RightResult Date: 04/26/2019RIGHT UPPER EXTREMITY DOPPLER HISTORY: Pain and swelling. High-resolution linearsonograp hy of the right upper extremity was performed using Color Doppler Flowand Duplex Doppl er Spectral sonography. There is no evidence of a deep veinthrombosis. The cephalic v ein could not be visualized. The right internaljugular, subclavian, axillary, b rachial and basilic veins are patent andcompletely compressible. Spontaneous and phasic flow is noted.IMPRESSION: No evidence of deep vein thrombosis. Subopt imal study.IMPRESSION:Patient Active Problem ListDiagnosis Code Paraesophageal hiata l hernia K44.9 COPD (chronic obstructive pulmonary disease) ([facility]) J44.9 Acute re spiratory distress R06.03 Pneumonia J18.9 COPD exacerbation ([facility]) J44.1 Sepsis du e to undetermined organism ([facility]) A41.9 Generalized anxiety disorder F41.1 Acut e respiratory failure with hypoxia ([facility]) J96.01 Pneumonia involving right lung J 18.9 Hyponatremia E87.1 SOB (shortness of breath) R06.02 Pressure injury of right heel, stage [address]) L89.612 Leg wound, right, initial encounter S81.801A Acute hypoxemic respiratory failure ([facility]) J96.01 COPD with acute exacerbation ([facility]) J44.1 Acute on chronic respiratory failure with hypoxia and hypercapnia ([facility])J96.21, J96 .22 Scrotal rash R21 PLAN: Cont ivf Monitor labs Check urine studies Cont abx Further recommendations will be based on the patient's response to recommendedtre atment and results of the investigation ordered.James Iverson MD04/26/201912:59 P M Name Value Range Interpretation Code Description Data Harriett rce(s) Supporting Document(s ) ID Date Data Source [id number] 04/26/2019 12:46:57 PM EST [facility] Roberto Burgos MD[address], [address]Suf JERMAINE babb [id number] NEUROLOGY FOLLOW-UP NOTEPatient: Evelio Carlin Sex: male DOA: 04/19/2019Date of : 1950 Age: 68 y.o. LOS: LOS: 7 daysSubjective complaints: Unable History: 68 yr old M admitted with hypoxia, hypotension, tachypnea on Bipap.Noted to have tremors. Transferred to ICU for intubation. EEG placed this AMafter pt i ntubated.Meds:Current Facility-Administered MedicationsMedication Dose Route Frequen cy vancomycin 50 mg/mL oral solution (compounded) 125 mg 125 mg Per G Tube Q 6H meropenem (MERREM) 500 mg in 0.9% sodium chloride (MBP/ADV) 50 mL MBP 0.5 gIntra VENous Q12H LORazepam (ATIVAN) tablet 1 mg 1 mg Per G Tube QHS lamoTRIgine (LaMICt al) tablet 50 mg 50 mg Per G Tube DAILY lamoTRIgine (LaMICtal) tablet 100 mg 10 0 mg Oral QPM sodium chloride (NS) flush 5-40 mL 5-40 mL IntraVENous Q8H sodium chloride (NS) flush 5-40 mL 5-40 mL IntraVENous PRN dextrose 5 % - 0.45% Na Cl infusion 50 mL/hr IntraVENous CONTINUOUS pantoprazole (PROTONIX) 40 mg in 0.9% so dium chloride 10 mL injection 40 mgIntraVENous DAILY acetaminophen (TYLE NOL) tablet 650 mg 650 mg Oral Q6H PRN HYDROcodone-acetaminophen (NORCO) 5-325 mg per tablet 1 Tab 1 Tab Oral Q4HPRN HYDROmorphone (DILAUDID) syringe 0.5 mg 0.5 mg IntraVENous Q4H PRN ondansetron (ZOFRAN) injection 4 mg 4 mg IntraVENou s Q6H PRN magnesium hydroxide (MILK OF MAGNESIA) 400 mg/5 mL oral suspension 30 mL 30mL Oral DAILY PRN enoxaparin (LOVENOX) injection 40 mg 40 mg SubCUTA neous Q24H propofol (DIPRIVAN) 10 mg/mL infusion 0-50 mcg/kg/min IntraVENous TI TRATE albuterol-ipratropium (DUO-NEB) 2.5 MG-0.5 MG/3 ML 3 mL Nebulization Q6HWA RT acetylcysteine (MUCOMYST) 100 mg/mL (10 %) nebulizer solution 400 mg 4 mLInhala tion TID RT miconazole (MICOTIN) 2 % cream Topical BID sodium chloride (NS) flush 5-10 mL 5-10 mL IntraVENous PRN budesonide (PULMICORT) 500 mcg/2 ml nebulizer suspe nsion 500 mcg NebulizationBID RT cinacalcet (SENSIPAR) tablet 60 mg 60 mg Oral KYLEIGH Y heparin (porcine) injection 5,000 Units 5,000 Units SubCUTAneous Q12H dextrose 5 % - 0.45% NaCl infusion 100 mL/hr IntraVENous CONTINUOUSReview of Systems: Unable to assess secondary to mental statusVisit VitalsBP 103/65 (BP 1 Locati on: Left arm, BP Patient Position: At rest)Pulse 78Temp (!) 100.8 F (38.2 C) Resp 21Ht 5' 2" (1.575 m)Wt 122 lb 6.4 oz (55.5 kg)SpO2 94%BMI 22.39 kg/m GeneralC hronically ill appearing M intubatedMental StatusUnresponsive. No response to voice . Keeps eyes forcibly closed. Sedated but doesbecome mildly agitated at times.Cran ial NervesPupils 6mm unreactive. Keeps eyes shut. +Corneals. +Averts to noxious nasa lstim.MotorMoves all ext. No tremorSensationIGrimaces and mild withdr awal to noxious stim all 4ReflexesDTRs trace, toes downgoingGait.CerebellumNARecent La bs:Lab ResultsComponent Value Date/Time WBC 9.2 04/26/2019 04:30 AM HGB 8.8 (L) 04/15 04:30 AM HCT 27.7 (L) 04/26/2019 04:30 AM PLATELET 502 (H) 04/26/2019 04:30 AM MCV 95.8 (H) 04/26/2019 04:30 AMLab ResultsComponent Value Date/Time Sodium 142 04/26/2019 04:30 AM Potassium 3.6 04/26/2019 04:30 AM Chloride 108 (H) 03/2020 04:30 AM CO2 29 04/26/2019 04:30 AM Anion gap 8 (L) 04/26/2019 04:30 AM Gluc ose 91 04/26/2019 04:30 AM BUN 33 (H) 04/26/2019 04:30 AM Creatinine 2.05 (H) 04/26/2019 04:30 AM GFR est AA 42 (L) 04/26/2019 04:30 AM GFR est non-AA 34 (L ) 04/26/2019 04:30 AM Calcium 8.9 04/26/2019 04:30 AM Bilirubin, total 0.2 04/19/2019 10:15 AM AST (SGOT) 21 04/19/2019 10:15 AM Alk. phosphatase 75 04/19/2019 10:15 AM Protein, total 6.3 (L) 04/19/2019 10:15 AM Albumin 1.4 (L) 04/26/2019 04:30 AM Glob ulin 4.2 04/19/2019 10:15 AM A-G Ratio 0.5 (L) 04/19/2019 10:15 AM ALT (SGPT) 12 (L ) 04/19/2019 10:15 AMCT Results (most recent):Results from Hospital Encounter encounter on 04/19/19CT CHEST ABD PELV WO CONT Narrative Referring Physician: MARYANN HILLSPatient Name: EVELIO FISCHBEINFINAL REPORT FROM IMAGING ON [place] L[place]: CT chest without contrast and CT abdomen pelvis withoutcontrastDATE OF EX AM: 2019-04-20 20:52:12IMAGES: 681HISTORY: reduced breath sounds right lung, LLQ te ndernessComparison: 03/14/19 and 12/21/18FINDINGS: Axial images of the ches t, abdomen and pelvis areobtained without iv contrast.Chest: Mediastinal assessment i s limited without contrast. Imagequality limited by artifacts. Patchy lung opacit ies right greaterthan left similar to prior. Small pleural effusions. Vascularincludi ng coronary calcifications. Mediastinum appears shifted tothe right. Left hemidi aphragm is elevated.Abdomen and pelvis: Nonspecific bowel pattern, with post nena gicalchanges on the left. No definite free air. Organ assessmentlimited without iv contrast. No significant free fluid or freeair.No bowel obstruction or abscess seen. Catheter and air in thebladder which is not well assessed. Left hip hardware par tiallyseen with old fracture deformity. G-J tube is present. Ventralhernia right of midline at abdominal wall with multiple smallbowel loops without obstructive pat tern. Mild right muscleswelling with possible hematoma and calcification at right groi nimage 117/120. Degenerative bony changes. Multiple likely chroniccompression defor mities at thoracic and lumbar spine. BilateralL5-S1 spondylolysis and anterol isthesis. Impression IMPRESSION: Right greater than left lung infiltrates and e ffusions.No bowel obstruction. 2 cm hyperdensity at a bowel loop in leftpelv is image 90/120, possibly ingested material, or a tubefragment or post surgical singleton e.Ventral abdominal hernia seen.See above.One or more of the following dose reduction techniques were used:automated exposure control, adjustment of the mA and/or kVa ccording to patient size, use of iterative reconstructivetechnique.THIS DOCUMENT NELSON S BEEN ELECTRONICALLY SIGNEDFrank MD Fredi04/20/2019 22:43 ESTM.D. Please call I maging [employer] Consultant [phone] ([phone]) withquestions.This report was electronic ally signed by:Marcie Edge MD 04/20/2019 10:44 PMMRI Results (most recent):No res ults found for this or any previous visit.Assessment:Problem List Date Revi ewed: 04/25/2019 Codes Class Noted Scrotal rash ICD-10-CM: Y07PMR-9-BP: 782 .1 04/21/2019 COPD with acute exacerbation (HCC) ICD-10-CM: J44.1ICD-9-CM: 491.21 04/19/2019 Acute on chronic respiratory failure with hypoxia and hypercapnia (HCC)ICD-10 -CM: J96.21, J96.22ICD-9-CM: 518.84, 786.09, 799.02 04/19/2019 Acute hypoxemic respira tory failure (HCC) ICD-10-CM: J96.01ICD-9-CM: 518.81 03/25/2019 Pressure injury of ri ght heel, stage 2 (HCC) ICD-10-CM: L89.612ICD-9-CM: 707.07, 707.22 019 Leg wound, right, initial encounter ICD-10-CM: S81.381DJFD-0-PM: 894.0 01/14 SOB (shortness of breath) ICD-10-CM: R06.02ICD-9-CM: 786.05 02/08/2019 Acute respiratory failure with hypoxia (HCC) ICD-10-CM: J96.01ICD-9-CM: 518.81 2018 Pneumonia involving right lung ICD-10-CM: J18.9ICD-9-CM: 486 01/10/2019 Hyponatremia ICD-10-CM: E87.1ICD-9-CM: 276.1 01/10/2019 Generalized anxiety disorder (Chronic) ICD-10-CM: F41.1ICD-9-CM: 300.02 12/30/2018 Sepsis due to undetermined org anism ([facility]) ICD-10-CM: A41.9ICD-9-CM: 038.9 12/12/2018 COPD (chronic obstructive pulm onary disease) ([facility]) ICD-10-CM: J44.9ICD-9-CM: 496 11/08/2018 Acute resp iratory distress ICD-10-CM: R06.03ICD-9-CM: 518.82 11/08/2018 Pneumonia ICD-10-CM: J 18.9ICD-9-CM: 486 11/08/2018 COPD exacerbation ([facility]) ICD-10-CM: J44.1ICD-9 -CM: 491.21 11/08/2018 Paraesophageal hiatal hernia ICD-10-CM: K44.9ICD-9-CM: 553.3 09/26/2015Plan: 68 yr old M with tremor, fever, staph sepsis, resp failure. Cont inue Lamictal 50-100 24 hr EEG25 minutes of direct patient careDavid MD [facility]Taylor [facility] 201912:37 PMExt. 8808 Name Value Range Interpretation Code Description Data Harriett rce(s) Supporting Document(s ) ID Date Data Source [id number] 04/26/2019 09:39:25 AM EST [facility] ID Progress Note04/26/2019Subjective:PT t ransferred to ICU for respiratory failure s/p intubationPt having diarrheaPt still feb rileUS of UE and LE negative for DVTUA is negativeS/p removal of PICC lineLethargi c non verbal on BiPAPBlood cultures positive for staph epidermidisRepeat blood cultur es no growth.High vancomycin trough level and vanco stoppedWorsening renal function.Ob jective:Review of SystemsPatient is unable to provideVitals:Patient Vitals for the pas t 24 hrs: BP Temp Pulse Resp [id number]/26/19 0900 95/57 - 86 18 96 %04/26/19 0823 - - 80 19 96 %04/26/19 0800 108/66 (!) 100.8 F (38.2 C) 74 18 93 %04/26/19 0700 97/51 - 72 18 91 %04/26/19 0600 99/55 - 78 18 92 %04/26/19 0500 123/57 - 72 18 92 % 0400 128/58 (!) 102.8 F (39.3 C) 74 18 92 %04/26/19 0300 131/58 - 74 18 94 %04/03 0226 - - 68 18 94 %04/26/19 0200 125/81 - 71 18 96 %04/26/19 0100 126/83 - 66 18 97 %04/26/19 0000 124/69 100.3 F (37.9 C) - - -04/25/19 2345 - - 82 - -04/25/19 23 00 124/69 - 90 (!) 5 97 %04/25/19 2230 - - 73 18 96 %04/25/19 2200 124/74 (!) 101.5 F (38.6 C) 86 19 99 %04/25/19 1946 129/78 98.6 F (37 C) 80 24 100 %04/25/19 1521 136/82 98.8 F (37.1 C) 81 27 98 %04/25/19 1156 - - - 28 -04/25/19 1015 125/61 100. 3 F (37.9 C) 91 (!) 35 100 %Tmax: Temp (24hrs), Av.4 F (38 C), Min:98.6 F (37 C), Max:102.8 F(39.3 C)Physical Exam:General: Lethargic on BiPAP,no dis tressEyes: Conjunctivae/corneas clear. PERRLNeck: Supple, symmetrical, trachea midline, no adenopathyLungs: bilateral breath sounds with basal crackles..Heart : Regular rate and rhythm, S1, S2 normal, no murmurAbdomen: Soft, non-tender. Bowel sounds normal. No masses, Noorganomegaly.peg+Back: Symmetric, no curvature. ROM normal. No CVA tenderness.Extremities: No cyanosis ,chr onic lymphedema .Pulses: 2+ and symmetric all extremities.Skin: Skin color, texture, t urgor normal. No rashes or lesionsLymph nodes: Cervical, supraclavicular, and ax illary nodes normal.Current Facility-Administered MedicationsMedicat ion Dose Route Frequency LORazepam (ATIVAN) tablet 1 mg 1 mg Per G Tube QHS lamoTR Igine (LaMICtal) tablet 50 mg 50 mg Per G Tube DAILY lamoTRIgine (LaMICtal) table t 100 mg 100 mg Oral QPM sodium chloride (NS) flush 5-40 mL 5-40 mL IntraVENous Q8H sodium chloride (NS) flush 5-40 mL 5-40 mL IntraVENous PRN dextrose 5 % - 0.45% NaCl infusion 50 mL/hr IntraVENous CONTINUOUS pantoprazole (PROTONIX) 40 m g in 0.9% sodium chloride 10 mL injection 40 mgIntraVENous DAILY acetaminophen (TYLE NOL) tablet 650 mg 650 mg Oral Q6H PRN HYDROcodone-acetaminophen (NORCO) 5-325 mg per tablet 1 Tab 1 Tab Oral Q4HPRN HYDROmorphone (DILAUDID) syringe 0.5 mg 0.5 mg IntraVENous Q4H PRN ondansetron (ZOFRAN) injection 4 mg 4 mg IntraVENou s Q6H PRN magnesium hydroxide (MILK OF MAGNESIA) 400 mg/5 mL oral suspension 30 mL 30mL Oral DAILY PRN enoxaparin (LOVENOX) injection 40 mg 40 mg SubCUTA neous Q24H propofol (DIPRIVAN) 10 mg/mL infusion 0-50 mcg/kg/min IntraVENous TI TRATE albuterol-ipratropium (DUO-NEB) 2.5 MG-0.5 MG/3 ML 3 mL Nebulization Q6HWA RT acetylcysteine (MUCOMYST) 100 mg/mL (10 %) nebulizer solution 400 mg 4 mLInhala tion TID RT miconazole (MICOTIN) 2 % cream Topical BID sodium chloride (NS) flush 5-10 mL 5-10 mL IntraVENous PRN budesonide (PULMICORT) 500 mcg/2 ml nebulizer suspe nsion 500 mcg NebulizationBID RT cinacalcet (SENSIPAR) tablet 60 mg 60 mg Oral KYLEIGH Y heparin (porcine) injection 5,000 Units 5,000 Units SubCUTAneous Q12H dextrose 5 % - 0.45% NaCl infusion 100 mL/hr IntraVENous CONTINUOUS piperacillin-cuba obactam (ZOSYN) 3.375 g in 0.9% sodium chloride (MBP/ADV) 100mL MBP 3.375 g In traVENous K9HOgyy:Recent Labs 04/25/201104/24/200535WB C 9.2 10.1 -- --HGB 8.8* 9.2* -- --PLT 502* 503* -- --BUN 33* -- 28* 22*CR EA 2.05* -- 1.82* 1.62*Cultures:Lab ResultsComponent Value Date/Time Culture result: NO GROWTH AFTER 19 HOURS 04/25/2019 12:10 PM Culture result: NO GROWTH AFTER 19 HOURS 04/25/2019 12:05 PM Culture result: NO GROWTH 6 DAYS 04/20/2019 02:47 PMRadi ology:Xr Chest Sngl VResult Date: 04/25/2019CHEST one view HISTORY: Pneumon ia. COPD. COMPARISON: 04/23/2019. There is a poorinspiratory effort which compromises this interpretation. The patient's chinalso obscures the right upper lobe. A repeat study is suggested. There has beenno change of small bilateral pleural effusions.The re is no gross evidence ofcongestion, infiltrates, or a left pneumothorax.IMPR ESSION: No significant change. Limited study. Poor inspiratory effort.Xr Chest PortRes ult Date: 04/26/2019CHEST ONE VIEW HISTORY: Intubation. COMPARISON: Previous studies . The patienthas been intubated. The endotracheal tube tip is approximately 5 .9 cms. abovethe tian. The left pleural effusion has resolved. There has been no change ofa small right pleural effusion. No other significant change is noted.IMPRES ELIO: Endotracheal tube tip approximately 5.9 cms. above the tian.Resolution of left pleural effusion.Duplex Lower Ext Venous LeftResult Date: 04/26/2019LEFT LOWER EXT REMITY DOPPLER History: Pain and swelling. High-resolution linearsonography of the left lower extremity was performed using Color Doppler Flowand Duplex Doppler spe ctral sonography. Findings: There is no evidence of deepvein thrombosis. The com mon femoral, visualized portions of the greatersaphenous, proximal, mid and dist al superficial femoral and popliteal veins werepatent. Spontaneous and phasic flow was noted. Normal compression and responseto augmentation was noted. The anterior tib ial vein and posterior tibial veinare not documented. The peroneal vein is patent. .IMPRESSION: No evidence of deep vein thrombosis. Suboptimal study.Duplex Uppe r Ext Venous RightResult Date: 04/26/2019RIGHT UPPER EXTREMITY DOPPLER HISTORY: Pain an d swelling. High-resolution linearsonography of the right upper extremity was perform ed using Color Doppler Flowand Duplex Doppler Spectral sonography. There is no evidenc e of a deep veinthrombosis. The cephalic vein could not be visualized. The right inter naljugular, subclavian, axillary, brachial and basilic veins are patent andcomplete ly compressible. Spontaneous and phasic flow is noted.IMPRESSION: No evidence of deep vein thrombosis. Suboptimal study.Assessment: Staph sepsis. Aspira tion pneumonia. Acute COPD exacerbation. Acute respiratory failure. Pleural effu elio. Dysphagia Fever Plan:1. Discontinu IV zosyn.2. Switch to meropenem3. Start ora l vancomycin and send for C diff4. Send for respiratory culture5. Contact isolation6 . PICC line is removed7. Follow blood and urine culturesMaNayan Valienteuary 1 [id number] AM Name Value Range Interpretation Code Description Data [facility](s) Supporting Document(s ) ID Date Data Source [id number] 04/26/2019 08:20:11 AM EST [facility] LEFT LOWER EXTREMITY DOPPLERHistory: Justus n and swelling.High-resolution linear sonography of the left lower extremity w as performedusing Color Doppler Flow and Duplex Doppler spectral sonography.Findi ngs: There is no evidence of deep vein thrombosis. The common femoral,visualize d portions of the greater saphenous, proximal, mid and distalsuperficial femo ral and popliteal veins were patent. Spontaneous and phasic flowwas noted. No rmal compression and response to augmentation was noted.The anterior tibial vein and p osterior tibial vein are not documented. Theperoneal vein is patent.. Name Value Range Interpretation Code Description Data Supporting Source(s) Document(s ) IMP IMPRESSION: No [facility] evidence of Taoist deep vein Hospital thrombosis. Suboptimal study. Signing date/time: 04/26/2019 8:20 AMSi gned by: LIONEL LOCKHART ID Date Data Source [id number] 04/26/2019 08:18:51 AM EST [facility] RIGHT UPPER EXTREMITY DOPPLERHISTORY: Pa in and swelling.High-resolution linear sonography of the right upper extremity was performedusing Color Doppler Flow and Duplex Doppler Spectral sonography.There is no evidence of a deep vein thrombosis. The cephalic vein could not bevisualized . The right internal jugular, subclavian, axillary, brachial andbasilic veins are patent and completely compressible. Spontaneous and phasicflow is noted.IMPR ESSION: No evidence of deep vein thrombosis. Suboptimal study. Signing date/time: 04/15 8:18 AMSigned by: LIONEL LOCKHART Name Value Range Interpretation Code Description Data Harriett rce(s) Supporting Document(s ) ID Date Data Source [id number] 04/26/2019 08:07:46 AM [facility] CHEST ONE VIEWHISTORY: Intubation.COMPAR GARTH: Previous studies.The patient has been intubated. The endotracheal tube tip is approximately 5.9cms. above the tian. The left pleural effusion has resolved. Ther e has been nochange of a small right pleural effusion.No other significant change is noted.IMPRESSION: Endotracheal tube tip approximately 5.9 cms. above the tian. Resolution of left pleural effusion. Signing date/time: 04/26/2019 8:07 AMSigned by: LIONEL LOCKHART Name Value Range Interpretation Code Description Data Harriett rce(s) Supporting Document(s ) ID Date Data Source [id number] 04/26/2019 07:28:25 AM [facility] SBAR endorsed to Lucinda Sutherland RN Name Value Range Interpretation Code Description Data Harriett rce(s) Supporting Document(s ) ID Date Data Source [id number] 04/26/2019 06:49:08 AM EST [facility] MD Reinier phoned CCU nurses station; r equested and received update onpatient's condition. No new orders or change in o rders. Name Value Range Interpretation Code Description Data Harriett rce(s) Supporting Document(s ) ID Date Data Source [id number] 04/26/2019 05:40:46 AM [facility] Pt intubated at bedside upon admission t o CCU by Namrata Silver CRNA and attached toventilator. Orders for Vent settings, Propofol gtt, Flexiseal, Lozano, IV Fluidrate increase and TF hold obtained by MD Dov. Wrist restraint order obtainedby MD Marlon for pt comfort and safety.Pt medicate d with Tylenol 650 mg X 2 for elevated temp (See MAR). Name Value Range Interpretation Code Description Data Harriett rce(s) Supporting Document(s ) ID Date Data Source [id number] 04/26/2019 05:46:43 AM [facility] Name Value Range Interpretation Description Data Sup porting Code Source(s) Document(s ) Lactate 1.1 0.4-2.0 [facility] - Good [Moles/volu MMOL/L [facility]] in Hospital Serum or Plasma ID Date Data Source [id number] 04/26/2019 05:47:53 AM [facility] Name Value Range Interpretation Description Data Sup porting Code Source(s) Document(s ) Sodium 142 136-145 [facility] - Good [Moles/volume] mmol/L [facility] in Serum or Hospital Plasma Potassium 3.6 3.5-5.1 [facility] - Good [Moles/volume] mmol/L [facility] in Serum or Hospital Plasma Chloride 108 98-107 Above high normal [facility] - Good [Moles/volume] mmol/L [facility] in Serum or Hospital Plasma Carbon 29 21-32 [facility] - Good dioxide, total mmol/L [facility] [Moles/volume] Hospital in Serum or Plasma Anion gap in 8 mmol/L 10-20 Below low normal [facility] - Go od Serum or [facility] Plasma Hospital Glucose 91 mg/dL 74-106 [facility] - Good [Mass/volume] Taoist in Serum or Hospital Plasma Urea nitrogen 33 mg/dL 7-18 Above high normal [facility] - Good [Mass/volume] Taoist in Serum or Hospital Plasma Creatinine 2.05 0.70-1.3 Above high normal [facility] - Goo d [Mass/volume] mg/dL 0 [facility] in Serum or Hospital Plasma Glomerular 42 >60 Below low normal [facility] - Good filtration ml/min/1 Taoist rate/1.73 sq M .73m2 Hospital predicted among blacks [Volume Rate/Area] in Serum or Plasma by Creatinine-bas ed formula (MDRD) Glomerular 34 >60 Below low normal [facility] - Good filtration ml/min/1 Taoist rate/1.73 sq M .73m2 Hospital predicted among non-blacks [Volume Rate/Area] in Serum or Plasma by Creatinine-bas ed formula (MDRD) Calcium 8.9 8.5-10.1 [facility] - Good [Mass/volume] mg/dL [facility] in Serum or Hospital Plasma Phosphate 2.2 2.5-4.9 Below low normal [facility] - Good [Mass/volume] mg/dL [facility] in Serum or Hospital Plasma Albumin 1.4 g/dL 3.5-4.7 Below low normal [facility] - Good [Mass/volume] Taoist in Serum or Hospital Plasma by Bromocresol purple (BCP) dye binding method ID Date Data Source [id number] 04/26/2019 05:47:53 AM EST [facility] Name Value Range Interpretation Description Data Sup porting Code Source(s) Document(s ) Magnesium 2.5 mg/dL 1.6-2.6 [facility] - Good [Mass/volume] Taoist in Serum or Hospital Plasma ID Date Data Source [id number] 04/26/2019 05:39:52 AM EST [facility] - Good [facility] Name Value Range Interpretation Description Data Sup porting Code Source(s) Document(s ) Leukocytes 9.2 K/uL 4.8-10.6 [facility] - [#/volume] in Good Blood by Taoist Automated count [facility] Erythrocytes 2.89 4.70-6.0 Below low normal [facility] - [#/volume] in M/uL 0 Good Blood by Taoist Automated count [facility] Hemoglobin 8.8 g/dL 14.0-18. Below low normal [facility] - [Mass/volume] in 0 Good Blood [facility] Hematocrit 27.7 % 42.0-52. Below low normal [facility] - [Volume 0 Good Fraction] of Taoist Blood by Hospital Automated count Erythrocyte mean 95.8 FL 81.0-94. Above high normal [facility] - corpuscular 0 Good volume [Entitic Taoist volume] by Hospital Automated count Erythrocyte mean 30.4 PG 27.0-35. [facility] - corpuscular 0 Good hemoglobin Taoist [Entitic mass] Hospital by Automated count Erythrocyte mean 31.8 30.7-37. [facility] - corpuscular g/dL 3 Good hemoglobin [facility] concentration Hospital [Mass/volume] by Automated count Erythrocyte 17.9 % 11.5-14. Above high normal [facility] - distribution 0 Good width [Ratio] by Taoist Automated count Hospital Platelets 502 K/uL 130-400 Above high normal [facility] - [#/volume] in [facility] Blood by Taoist Automated count Hospital Platelet mean 9.3 FL 9.2-11.8 [facility] - volume [Entitic Good volume] in Blood Taoist by Automated Hospital count Nucleated 0.0 PER 0 [facility] - erythrocytes/100 100 WBC Good leukocytes Taoist [Ratio] in Blood [facility] Nucleated 0.00 0.0-0.01 [facility] - erythrocytes K/uL Good [#/volume] in [facility] ID Date Data Source [id number] 04/25/2019 10:17:52 PM EST [facility] - [facility] TRANSFER - OUT REPORT:Verbal report give n to ANNCY Lloyd(name) on Evelio Carlin being transferredto CCU(unit) for change in patient condition(to be intubated)Report consisted of patient's Situation, Backgr ound, Assessment andRecommendations(SBAR).Information fro m the following report(s) SBAR and Kardex was reviewed with thereceiving nurse.Lines:P eripheral IV 04/24/19 Posterior;Right Forearm (Active)Site Assessment Clean, dry, & in tact 04/25/2019 11:28 AMPhlebitis Assessment 0 04/25/2019 11:28 AMInfiltration Assessmen t 0 04/25/2019 11:28 AMDressing Status Clean, dry, & intact 04/25/2019 11:28 AMDressing Type Transparent 04/25/2019 11:28 AMHub Color/Line Status Blue;Patent;Flushed 02/2020 11:28 AMAction Taken Open ports on tubing capped 04/25/2019 11:28 AMAlcohol Cap Used Yes 04/25/2019 11:28 AMPeripheral IV 04/25/19 Anterior;Left Wrist (Active)Sit e Assessment Clean, dry, & intact 04/25/2019 11:28 AMPhlebitis Assessment 0 04/25/2019 11:28 AMInfiltration Assessment 0 04/25/2019 11:28 AMDressing Status Clean, dry, & in tact 04/25/2019 11:28 AMDressing Type Transparent 04/25/2019 11:28 AMHub Color/ Line Status Blue;Patent;Flushed 04/25/2019 11:28 AMAction Taken Open ports on tubin g capped 04/25/2019 11:28 AMAlcohol Cap Used Yes 04/25/2019 11:28 AMOpportunity for qu estions and clarification was provided.Patient transported with: Monit orRegistered Nurse, Bipap -respiratory therapist Name Value Range Interpretation Code Description Data Harriett rce(s) Supporting Document(s ) ID Date Data Source [id number] 04/25/2019 10:15:22 PM EST [facility] - G ood [facility] Name Value Range Interpretation Description Data Sup porting Code Source(s) Document(s ) pH of Arterial 7.41 7.35-7.4 [facility] - Good blood [address] [place] [address] Carbon dioxide 52 mmHg 32-48 Above high normal [facility] - Good [Partial Taoist pressure] in Hospital Arterial blood Oxygen 114 mmHg 83-108 Above high normal [facility] - Good [Partial Taoist pressure] in Hospital Arterial blood Carbon 35 19-24 Above high normal [facility] - Good dioxide, total mmol/L [facility]ist [Moles/volume] Hospital in Arterial blood Bicarbonate 33 21-28 Above high normal [facility] - Go od [Moles/volume] mmol/L [facility] in Arterial Hospital blood Oxygen 99 % 94-98 Above high normal [facility] - Good saturation in [facility] Base excess in 6.9 0-3 Above high normal [facility] - Good Arterial blood mmol/L [facility]ist by calculation Hospital Body site [facility] - Good [facility] Arterial [facility] - Good patency Wrist Taoist artery --pre Hospital arterial puncture Oxygen gas [facility] - Good flow Oxygen [facility] system Oxygen/Inspire 60.0 % [facility] - Good d gas [facility] Respiratory Hospital system --on ventilator Ventilation [facility] - Good mode Taoist [Identifier] [facility] Ventilator PEEP 5 [facility] - Good Respiratory [facility] system Hospital Tidal volume 400 [facility] - Good setting [facility] Ventilator Hospital Respiratory 18 [facility] - Good rate [facility] Service [id number] [facility] - Good comment [facility] ID Date Data Source [id number] 04/25/2019 07:40:54 PM EST [facility] CASE DISCUSSED WITH DR LAURA Navarro [phone] AND TRACHEOSTOMY FOR PULMONARY TOILET IS OK WITH HI M Name Value Range Interpretation Code Description Data Harriett rce(s) Supporting Document(s ) ID Date Data Source [id number] 04/25/2019 07:35:43 PM EST [facility] CHEST one viewHISTORY: Pneumonia. COPD.C OMPARISON: 04/23/2019.There is a poor inspiratory effort which compromises thi s interpretation. Thepatient's chin also obscures the right upper lobe. A repeat study is suggested. There has been no change of small bilateral pleural effusions.The re is no grossevidence of congestion, infiltrates, or a left pneumothorax.IMPR ESSION: No significant change. Limited study. Poor inspiratory effort. Signing date/t jose alejandro: 04/25/2019 7:35 PMSigned by: LIONEL LOCKHART Name Value Range Interpretation Code Description Data Harriett rce(s) Supporting Document(s ) ID Date Data Source [id number] 04/25/2019 07:33:20 PM EST [facility] Bedside and Verbal shift change report Marni Edge RN(oncoming nurse) by Kendra Vazquez RN (offgoing nurs e). Report included thefollowing information SBAR, Kardex, ED Summary, Procedure Summ connor,Intake/Output, MAR, Recent Results and Med Rec Status. Name Value Range Interpretation Code Description Data [facility] rce(s) Supporting Document(s ) ID Date Data Source [id number] 04/25/2019 07:24:48 PM [facility] Review BIPAP settings, alarms and use of skin adhesive with next shift RT BrandyKennedy Respiratory equipment wipe d clean with Bleach Sani Wipes as perdepartment policyAlbert C Anrdes , RT Name Value Range Interpretation Code Description Data [facility] rce(s) Supporting Document(s ) ID Date Data Source [id number] 04/25/2019 06:31:03 PM [facility] Progress NoteMID-[facility] ,[facility].Krystian Monae MD., F.C.C.P.Stella Hamilton MD., F.C.C.P. [address] [place] [id number] [place] [address] [phone]: Evelio Carlin Sex: male DOA: 04/19/2019Dat e of : 1950 Age: 68 y.o. LOS: LOS: 6 daysSubjective:PATIENT REMAINS IN RESPIRATORY DISTRESS EVEN ON BIPAP , HE IS NOT STABLEFOR SURGERY F OR J TUBE , DUE TO RESPIRATORY DISTRESS. RR = 32 ON BIPAP AND HE IS USING AC CESSORY MUSCLES , HE IS OBTUNDED ,HE HAVE FURTHER WORSENED THAN YESTERDAY .DI SCUSSED WITH HIS AUNT ON BED SIDE , TOLD HER HE MAY NEED INTUBATION, HE IS NOT ABLE TO CLEAR SECRETIONS. .Patient is on BIPAP FOR RESPIRATORY DISTRESS , NON V ERBAL . G I AND SURGERYNOTES NOTED , PROBABLY PREP RATION FOR SURGICAL INT ERVENTION FO J TUBEINSERTION.PATIENT WITH RESPIRATORY FAILURE STILL IN MODERAT E RESP DISTRESS ON NASALCANNULACEREBRAL PALSY , BEDRIDDEN TODAY TARSFERRED WI TH FECER AND MENTAL CHANGES .PATIENT IS FAMILIAR TO ME FROM PAST ADMISSIONS . HX DYSPHAGIA , COPD,SEIZURES , CEREBRAL PALSY .MENTQAL RETARDATION ,PARKINSONISM SCHIZOPHRENIA , , CHEST XRAY - ATELECTASIS L L L , COPD , KYPHOSCOLIOSIS . PAST HCX PUL;MONARY EMBOLISM . We were asked to admit for work up and evaluation of the above problems. 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 No pertinent family history. No Known Allergies Prior to Admission medicationsMedication Sig S tart Date End Date Taking? Authorizing ProviderlamoTRIgine (LAMICTAL) 25 mg rap id dissolve tablet TAKE 2 TABLETS BY MOUTH EVERY12 HOURS 03/18/19 Provider, Jazmine oricalzinc oxide 20 % ointment Apply to affected area as needed for Skin Irritat ion.Provider, Edieomeprazole (PRILOSEC) 2 mg/mL susp 2 mg/mL oral suspension (co mpounded) Take 20mL by mouth daily. 04/06/19 Christos Lopez MDheparin sodium,por cine (HEPARIN, PORCINE,) 5,000 unit/mL injection 1 mL bySubCUTAneous route ever y twelve (12) hours every twelve (12) hours. 03/17/19 Mili Hills DOmultivtatyana in (MULTI-DELYN, WELLESSE) liqd 5 mL by Per G Tube route daily.03/17/19 Patricio Hills DOacetaminophen (TYLENOL) 32MG/ML soln solution Take 20.3 mL by mouth every fou r(4) hours as needed for Pain or Fever. 03/17/19 Mili Hills DOacetylcys teine (MUCOMYST) 100 mg/mL (10 %) nebulizer solution Take 4 mL byinhalation two (2) times a day. Provider, Edieclorazepate (TRANXENE) 3.75 mg tablet 1 Tab by Per G Tube route nightly. MaxDaily Amount: 3.75 mg. 12/30/18 Mili Dawn DOcinacalcet (SENSIPAR) 30 mg tablet Take 2 Tabs by mouth daily.Patien t taking differently: 30 mg daily. Via G tube 12/30/18 Mili Hills DOalbuterol- ipratropium (DUO-NEB) 2.5 mg-0.5 mg/3 ml nebu 3 mL by Nebulizationroute every six (6) hours. Every 6 hours while awakePatient taking differently: 3 mL by Nebulization route every four (4) hours asneeded. Every 6 hours while awake 12/30/18 Maryam Hills DObudesonide (PULMICORT) 0.5 mg/2 mL nbsp 2 mL by Nebulization route two (2) timesa day. 12/30/18 Mili Hills DO REVIEW OF SYSTEMS: NON VERBAL , IN DONNA DENT MODERATE TO SEVERE RESPIRATORYDISTRESSGeneral: negative for fever, chills, sweats, weaknessEyes: negative for blurred vision, eye pain, l oss of vision, diplopiaEar Nose and Throat: negative for rhinorrhea, pharyngitis, ot algia, tinnitus,speech or swallowing difficultiesRespiratory: negative for c ough, sputum production, SOB, wheezing, DAVALOS,pleuritic painCardiology: negative for chest pain, palpitations, orthopnea, PND, edema,syncopeGastrointestinal: negative for abdominal pain, N/V, dysphagia, change in bowelhabits, bleedingGenitourinary: nega tive for frequency, urgency, dysuria, hematuria, incontinenceMuskuloskeletal : negative for arthralgia, myalgiaHematology: negative for easy bruising, bleeding, ly mphadenopathyDermatological: negative for rash, ulceration, mole change, new lesio nEndocrine: negative for hot flashes or polydipsiaNeurological: negative for hea dache, dizziness, confusion, focal weakness,paresthesia, memory loss, gait disturbancePsychological: negative for anxiety, depression, agitationObjective: Vital Signs:Patient Vitals for the past 24 hrs: BP Temp Pulse Resp SpO2 Kcfqlr6704/25 1521 136/82 98.8 F (37.1 C) 81 27 98 % -04/25/19 1156 - - - 28 - -04/25/19 1015 125/61 100.3 F (37.9 C) 91 (!) 35 100 % -04/25/19 0745 145/68 (!) 101.4 F (38.6 C) 97 (!) 32 - -04/25/19 0701 - - - - - 55.5 kg (122 lb 6.4 oz)04/25/19 0415 127 /66 98.7 F (37.1 C) 91 16 97 % -04/25/19 0222 - - - - 99 % -04/25/19 0021 113/77 99.1 F (37.3 C) 99 18 96 % -04/24/192015 106/90 98.8 F (37.1 C) 94 18 97 % -02/01 194 - - - - 97 % -Pulse OX:SpO2 Readings from Last 6 Encounters:04/25/19 98%04/16/19 100%04/06/19 99%03/17/19 92%02/19/19 96%02/18/19 92%@LASTSAO2(6)@ Physical Exam:T= 10.4 , ON BIPAP OBTUNDED , RR - 32 / MT USING ACCESSORYMUSCLES ON BIPAP . General: Alert, cooperative, no distress, appears stated age. Head: Normocephalic, without obvious abnormality, atraumatic. Eyes: Conjunctivae/corneas clear. PERRL, EOMs intact. No se: Nares normal. No drainage or sinus tenderness Throat: Lips, mucos a, and tongue normal Neck: Supple, symmetrical, trachea midline, no adenopathy,thyroid: no enlargement/tenderness/nodules, no carot id bruit and no JVD. Lungs: BREATH SOUNDS DECREASED RIGHT LUNG , DULL NESS + R L L, WHEEZING +2 LEFT LUNG to auscultation bilaterally. Chest Wall: No tenderness or deformity. Heart: Regular rate and rhythm, S1, S2 normal , no murmur, click,rub or gallop., HYPERDYNAMIC PRECORDIUM Abdomen: S oft, non-tender. Bowel sounds normal. No masses, No organomegaly. Extremities: Extremities normal, atraumatic, no cyanosis or edema.,CONTRACTED EXTREMITIES . Pulses: 4+ bilaterally. Skin: Skin color, texture, turgor norm al. No rashes or lesions. Neurologic: CNII-XII intact. No focal motor or senso ry deficit.Intake and Output:Last three shifts: 04/23 1900 - 04/25 0700In: 1025 [I.V.:1025]Out: 1150 [Urine:1150]Lab Results:Recent Results (from the past 24 hour(s))EOSINOPHILS, URINE Collection Time: 04/24/19 6:30 PMResult Value Ref Range Eosinophils,urine NONE SEEN (A) NONESODIUM, UR, RANDOM Collection Time: 04/24/19 6: 30 PMResult Value Ref Range Sodium,urine random 76 40 - 220 MMOL/LVANCOMYCIN, TRO UGH Collection Time: 04/25/19 5:24 AMResult Value Ref Range Vancomycin,trough 32.0 ( HH) 10 - 20 ug/mLRENAL FUNCTION PANEL Collection Time: 04/25/19 5:24 AMResult Value Ref Range Sodium 143 136 - 145 mmol/L Potassium 3.4 (L) 3.5 - 5.1 mmol/L Chlor wade 107 98 - 107 mmol/L CO2 34 (H) 21 - 32 mmol/L Anion gap 5 (L) 10 - 20 mmol/L Gl ucose 129 (H) 74 - 106 mg/dL BUN 28 (H) 7 - 18 mg/dL Creatinine 1.82 (H) 0.70 - 1.30 mg/dL GFR est AA 48 (L) >60 ml/min/1.73m2 GFR est non-AA 40 (L) >60 ml/min/1.73m2 Calcium 9.0 8.5 - 10.1 mg/dL Phosphorus 2.6 2.5 - 4.9 mg/dL Albumin 1.5 (L) 3.5 - 4. 7 g/dLURINALYSIS W/ RFLX MICROSCOPIC Collection Time: 04/25/19 11:47 AMResult Value Ref Range Color YELLOW YEL Appearance CLOUDY (A) CLEAR Specific gravity 1.014 1.003 - 1.030 pH (UA) 5.5 4.6 - 8.0 Protein 30 (A) NEG mg/dL Glucose NEGATIVE NEG m g/dL Ketone NEGATIVE NEG mg/dL Bilirubin NEGATIVE NEG Blood NEGATIVE NEG Urobil inogen 0.2 0.2 - 1.0 EU/dL Nitrites NEGATIVE NEG Leukocyte Esterase NEGATIVE NEG WBC 0-3 0 - 5 /hpf RBC 5-10 0 - 2 /hpf Epithelial cells 0-3 0 - 10 /hpf Bacteri a NONE NONE /hpf Casts 0-3 (A) NONE /lpf Crystals, urine NONE NONE /LPFCBC WITH A UTOMATED DIFF Collection Time: 04/25/19 12:10 PMResult Value Ref Range WBC 10.1 4.8 - 10.6 K/uL RBC 3.02 (L) 4.70 - 6.00 M/uL HGB 9.2 (L) 14.0 - 18.0 g/dL HCT 29.8 (L) 42 .0 - 52.0 % MCV 98.7 (H) 81.0 - 94.0 FL MCH 30.5 27.0 - 35.0 PG MCHC 30.9 30.7 - 37. 3 g/dL RDW 18.0 (H) 11.5 - 14.0 % PLATELET 503 (H) 130 - 400 K/uL MPV 9.1 (L) 9.2 - 11.8 FL NRBC 0.0 0 PER 100 WBC ABSOLUTE NRBC 0.00 0.0 - 0.01 K/uL NEUTROPHILS 72 48.0 - 72.0 % LYMPHOCYTES 13 (L) 18.0 - 40.0 % MONOCYTES 13 (H) 2.0 - 12.0 % EOSINOPHIL S 1 0.0 - 7.0 % BASOPHILS 0 0.0 - 3.0 % IMMATURE GRANULOCYTES 1 (H) 0 - 0.5 % AB S. NEUTROPHILS 7.3 2.3 - 7.6 K/UL ABS. LYMPHOCYTES 1.3 0.9 - 4.2 K/UL ABS. MONO CYTES 1.3 0.1 - 1.7 K/UL ABS. EOSINOPHILS 0.1 0.0 - 1.0 K/UL ABS. BASOPHILS 0.0 0.0 - 0.4 K/UL ABS. IMM. GRANS. 0.1 0.0 - 0.17 K/UL DF AUTOMATEDABG:No results for input(s): PH, PCO2, PO2, HCO3, FIO2 in the last 72 hours.Recent Glucose Results:Lab Results Component Value Date/Time GLU 129 (H) 04/25/2019 05:24 AM@[email or web address] ION@CULTURESAll Micro Results Procedure Component Value Units Date/Time Emanuel HINTON (DNA) [[id number]] Order Status: Sent Specimen: Stool CULTURE, BLOOD [[id number]] Collected: 04/25/19 1205 Order Status: Completed Specimen: Blood Updated: 03/04 1305 CULTURE, BLOOD [[id number]] Collected: 04/25/19 1210 Order Status: Completed Specimen: Blood Updated: 04/25/19 1305 CULTURE, URINE [[id number]] Collected: 04/25/19 1147 Order Status: Completed Specimen: Urine from Clean ca tch Updated: CULTURE, BLOOD [[id number]] Collected: 04/20/19 1447 Or bassem Status: Completed Specimen: Blood Updated: 04/24/19 0632 Special Request s: NO SPECIAL REQUESTS Culture result: NO GROWTH 4 DAYS CULTURE, BLOOD [[id number]] Collected: 04/20/19 1440 Order Status: Completed Specimen: Blood Updated: 02/0132 Special Requests: NO SPECIAL REQUESTS Culture result: NO GROWTH 4 DA YS CULTURE, BLOOD [[id number]] (Abnormal) Collected: 04/19/19 1005 Order Status: Completed Specimen: Blood Updated: 04/22/19 0731 Special Requests: NO SPEC IAL REQUESTS GRAM STAIN GRAM POSITIVE COCCI IN CLUSTERS ANAEROBIC BOTTLE CALLED TO AND READ BACK BY ROB LEDEZMA RN, ED, 0953 ON 04/20/19 TORISMIRAGLIA Culture re sult: STAPHYLOCOCCUS EPIDERMIDIS : Refer to previous culture(s) for susceptibilityre sults CULTURE, BLOOD [[id number]] (Abnormal) (Susceptibility) Collected: 04/19/20091 5 Order Status: Completed Specimen: Blood Updated: 04/22/19 0729 Special Request s: NO SPECIAL REQUESTS GRAM STAIN GRAM POSITIVE COCCI IN CLUSTERS ANAEROBIC BOT TLE CALLED TO AND READ BACK BY ROB LEDEZMA, RN, ED, AT 0953 ON 04/20/19 TO RISMIRAGLIA Culture result: STAPHYLOCOCCUS EPIDERMIDISImages:[email or web address] Abd ( marcelino)Result Date: 04/05/2019XR ABD (MARCELINO) CLINICAL INDICATION PROVIDED:. "assess J tube position."TECHNIQUE.: An initial AP image of the abdomen was acquired. Addit ional APimages of the abdomen were acquired after the hand-injection of a small volu meof radiopaque contrast by the patient's nurse into the patient's J-tube.COMPARIS ON:. 04/02/2019. FINDINGS:. The tip of the 2 projects over the midabdomen, at the lev el of the mid jejunum. Post injection images demonstrateopacification of loops of mid small bowel. There is no extraluminal contrastappreciated. A large volume of s tool projects over the distal colon/rectum.Densities project over the lower lungs, right greater than left. Considercorrelation with chest radiograp hs.IMPRESSION:. Injected radiopaque contrast appears to be contained within thelumen of the mid small bowel. There is no evidence of extraluminal contrast.Additional find ings and recommendations as above.Xr Abd (kub)Result Date: 04/02/2019KUB 2 view(s ) History: Evaluate J-tube. Comparison: 11/22/2018. There is a newJ-tube overlyin g the mid abdomen with kinking involving its superior andinferior portion overlying t he mid abdomen. These findings were discussed withmale nurse Jacquelyn at 3:40 PM today.. Th ere is mild ileus of the small bowel butthere is no evidence of obstruction, radiopaqu e gallstones, or left kidneystones or an appendicolith. There are possible right kidney stones. Absence ofan appendicolith it does not exclude appendicitis. CT is sug gested if clinicallyindicated. Old rib fractures are noted.IMPRESSION: Kinking of J-tube in 2 locations. Possible right kidney stonesIleus.Ir Picc Insert Wo Por t Over 5 Years Wo ImgResult Date: 04/01/2019IR PICC INSERT WO PORT OVER 5 YEARS WO IMG CLINICAL INDICATION PROVIDED.:"midline." Medical necessity f or vascular access. PROCEDURE: After beinginformed of the risks, benefits, po tential alternatives to the procedure theinformed consent was obtained. The pa tient was placed on the table the supineposition. The right upper extremit y was prepped and draped in the normal sterilefashion. Ultrasound interrogation was performed of the right upper extremity.Images were obtained. A locat ion was chosen over the right brachial vein abovethe antecubital fossa. Lidocaine so lution was used to anesthetize the scan.Access was gained under ultrasound guidance using a 21-gauge thin-walled needle.A 0.018 a wire was advanced under fluoroscopic guidance into the right axillaryvein. The needle was exchanged o lani a wire for the midline dilator and sheath.The dilator and wire were removed leaving the sheath in situ. Through the sheatha 5 Congolese double-lumen 20 cm midl ine catheter was placed. The peel-away sheathwas removed. The catheter was sewn into position using 2-0 silk sutures. Thepatient tolerated the procedure. Ther e were no complications at the time of theprocedure. FINDINGS: Ultrasound inter rogation revealed a widely patent brachialvein above the antecubital fossa . A 5 Congolese dual-lumen 20 cm midline catheterwas placed. The tip was placed i n good position over the right axillary vein.IMPRESSION: 5 Congolese dual-lumen mid line catheter placed with tip positioned overthe right axillary vein.Ct Chest Abd Pelv Wo ContResult Date: 04/20/2019Referring Physician: MILI HILLS Patient Name: EVELIO CARLIN FINAL REPORTFROM [facility] EXAM: CT chest without contrast and CT abdomen pelviswithout contrast DATE OF EXAM: 2019-04-20 20:52:12 IMAGES: 681 HI STORY: reducedbreath sounds right lung, LLQ tenderness Comparison: 03/14/19 and FINDINGS: Axial images of the chest, abdomen and pelvis are obtained without ivcontrast. Chest: Mediastinal assessment is limited without contrast. Imagequality l imited by artifacts. Patchy lung opacities right greater than leftsimilar to prior. Small pleural effusions. Vascular including coronarycalcifications. Mediastinum appe ars shifted to the right. Left hemidiaphragm iselevated. Abdomen and pelvis: Nonspeci fic bowel pattern, with post surgicalchanges on the left. No definite free air. Organ assessment limited without ivcontrast. No significant free fluid or free air. No b owel obstruction or abscessseen. Catheter and air in the bladder which is not well ass essed. Left hiphardware partially seen with old fracture deformity. G-J tube is pres ent.Ventral hernia right of midline at abdominal wall with multiple small bowel loops without obstructive pattern. Mild right muscle swelling with possiblehematoma an d calcification at right groin image 117/120. Degenerative bonychanges. Multiple likel y chronic compression deformities at thoracic and lumbarspine. Bilateral L5-S1 spondyl olysis and anterolisthesis.IMPRESSION: Right greater than left lung infiltrates and e ffusions. No bowelobstruction. 2 cm hyperdensity at a bowel loop in left pel vis image 90/120,possibly ingested material, or a tube fragment or post surgical charles ge. Ventralabdominal hernia seen. See above. One or more of the following dose reduct iontechniques were used: automated exposure control, adjustment of the mA and/or kVa ccording to patient size, use of iterative reconstructive technique. THISDOCUMENT H BEEN ELECTRONICALLY SIGNED Marcie Edge MD 04/20/2019 22:43 GINA VerdePlease call Katja berger Wireless Consultant [phone] with questions. This reportwas electronically signed by: Marcie Edge MD 04/20/2019 10:44 PMUs Retroperitoneum CompResult Date: 04/23/2019Retroperitoneal sonogram clinical indication acute kidney insufficiency S tudyis limited secondary to position of the patient and the patient'sinability t o cooperate. The abdominal aorta and inferior vena cava are obscured.The right kidney measures 9.2 cm. There is no evidence of hydronephrosis. Theleft kidney measures 9.5 cm. There is no evidence of hydronephrosis. Foleycatheter is seen wi thin the bladder.IMPRESSION: 1. Limited study. 2. No evidence of hydronephrosisX r Chest PortResult Date: 04/23/2019XR CHEST PORT CLINICAL INDICATION PROVIDED:. "Lani ification of PICC lineplacement." TECHNIQUE.: 2 AP views, chest. COMPARISON:. 04/19/2019 . FINDINGS:. Thetip of the vascular catheter projects over the right axilla, likely a midlinecatheter placed on 04/01/2019. The pericardial/cardiac silhouette is enlarg ed inthe transverse dimension. There is mild pulmonary vascular congestion andinterst itial edema. There is suggestion of small bilateral pleural effusions.Density in t he lung bases may represent adjacent atelectasis or superimposedlower lung in filtrates. Follow-up radiographs are recommended.IMPRESSION:. 1. Midline cat heter projecting over the right axilla. 2. Mildcongestive failure with interstitial edema and small bilateral pleuraleffusions.Xr Chest PortResult Pan e: 04/19/2019History: Respiratory difficulty. FINDINGS: A frontal portable view of the chestis submitted for interpretation and is compared to the prior study of04/06/2019 . EKG leads overlie the chest. A right-sided midline catheter is notedin situ. The ca rdiac silhouette measures at the upper limits of normal. There ispatchy opacity noted at the lung bases, left greater than right, which may beinfiltrative or atelectatic in nature. A small left pleural effusion is noted.Mediastinal and hilar structures a re unremarkable.IMPRESSION: Basilar infiltrative change left greater than ri ght. Small leftpleural effusion.Xr Chest PortResult Date: 04/06/2019CHEST one vie w HISTORY: Pneumonia. COMPARISON: 03/25/2019. There is a poorinspiratory effort which compromises this interpretation. A repeat study issuggested. There is discoid atel ectasis and/or subsegmental left lower lobeatelectasis along the left hemidiaph ragm. .There is no gross evidence ofcongestion, effusions or pneumothorax. IMPRESSION: Possible left lower lobe atelectasis. Poor inspiratory effort.Dup krissy Upper Ext Venous LeftResult Date: 04/23/2019DUPLEX UPPER EXTREMITY-VENOUS LE FT HISTORY: Swelling left upperextremity-evaluate for DVT PRIOR: Mireya valdovinos: Most recent February 10, 2019: "Noevidence of deep vein thrombosis." TE CHNICAL FACTORS: High resolution lineargrayscale, color-flow and Doppler evaluation of the left upper extremity wasperformed from the neck to the antecu bital fossa. FINDINGS: Normal antegradeflow, compressibility of the deep venous vascu lature, except for the internaljugular and subclavian veins due to their positions/ anatomic location, as wellas augmentation of flow/phasicity is identified within the visualized portionsof the deep venous system. No filling defects are identified that w ould besuspicious for, or lead customer service representative of DVT.IMPRESSION: 1. No sonographic findin gs suggestive of thrombosis within thevisualized portions of the deep venou s system of the left upper extremity.Medications:Current Facility-A dministered MedicationsMedication Dose Route Frequency LORazepam (ATIVAN) tablet 1 m g 1 mg Per G Tube QHS [START ON 04/26/2019] lamoTRIgine (LaMICtal) tablet 50 mg 50 mg Per G TubeDAILY lamoTRIgine (LaMICtal) tablet 100 mg 100 mg Oral QPM albutero l-ipratropium (DUO-NEB) 2.5 MG-0.5 MG/3 ML 3 mL Nebulization Q6HWA RT acetylcysteine (MUCOMYST) 100 mg/mL (10 %) nebulizer solution 400 mg 4 mLInhalation TID RT miconazole (MICOTIN) 2 % cream Topical BID acetaminophen (TYLENOL) tablet 650 mg 6 50 mg Oral Q4H PRN sodium chloride (NS) flush 5-10 mL 5-10 mL IntraVENous PRN budesonide (PULMICORT) 500 mcg/2 ml nebulizer suspension 500 mcg NebulizationBID RT pantoprazole (PROTONIX) 40 mg in 0.9% sodium chloride 10 mL injection 40 mgIntraVENo us DAILY cinacalcet (SENSIPAR) tablet 60 mg 60 mg Oral DAILY heparin (porcine) inje ction 5,000 Units 5,000 Units SubCUTAneous Q12H dextrose 5 % - 0.45% NaCl infusion 100 mL/hr IntraVENous CONTINUOUS piperacillin-tazobactam (ZOSYN) 3.375 g in 0.9% sodium chloride (MBP/ADV) 100mL MBP 3.375 g IntraVENous [id number] Problems: Pneumonia (11/08/2018) Acute hypoxemic respiratory failure (HCC) (03/25/2019) COPD with acute exacerbation (HCC) (04/19/2019) Acute on chronic respiratory failure wi th hypoxia and hypercapnia (HCC)(04/19/2019) Scrotal rash (04/21/2019)Assessment:1 ACUTE HYPERCAPNIC AND HYPOXIC RESPIRATORY FAILURE DUE TO SEVERECOPD / PNEUMONIA 1. ATELECTASIS L L L2. PLEURAL EFFUSION VS ATELECTASIS RT BASES .3. SEVERE COPD 4. SEVERE METABOLIC ENCEPHALOPATHY5. MENTAL RETARDATION6. PNEUMONIA 7. SEPS IS L A = 2.58. METABOLIC ENCEPHALOPATHY - OBTUNDED9. HX P. E 10. AC RESP DISTR ESS ?11. BACTEREMIA G + COCCI 12. FLUID OVER LOAD13. POSSIBLE 2 CM SEGMENT O F TUBE IN ILEUM EPR RADIOLOGY ON CATSCAN REPORT Plan: 1. CONT BIPAP SUPPORT IPAP = 14 CM , EPAP= 7 CM ,RATE = 20 . MT FIO2 = 70 %, HE HAVE IMPENDIN G RESPIRATORY FAILURE WITH MENTAL CHANGE //2. SEIZURES PER NEUROLOGY , HE FELIBERTO L BENEFIT FROM INTUBATION , AWAITING CALLBACK FROM HIS NEPHEW DR SANDRO GUTIERREZ , IF FAMILY AGREES WILL INTUBATE3. DUO NEB Q 4 H4. MUCOMYST 10 % VIA MIN I NEB Q 8 H5. IV ZOSYN AND VANCOMYCIN 6. CONT BIPAP SUPPORT AT NIGHT , DISCU SSED WITH STAFF , ORDERS FORBIOPAP GIVEN 7. LASIX 20 MG I V P NOW 8. DISCUSSED WIT Cindi RN ON BED SIDE9. PATIENT IS NOT CLEARED FOR SURGERY DUE TO RESPIRATORY DISTRESS 10. DISCUSSED WITH DR HILLS ON BED SIDE , SHE AGREES FOR [id number]. TRANSFER TO [facility] - DISCUSSED WITH MISS ALEXANDR PITTS IN ICU Krystian Monae MD F.C.C.P.April [id number] PM Name Value Range Interpretation Code Description Data Harriett rce(s) Supporting Document(s ) ID Date Data Source [id number] 04/25/2019 06:25:08 PM EST [facility] Dr. Monae requested ABG performed today and tomorrow. Name Value Range Interpretation Code Description Data Harriett rce(s) Supporting Document(s ) ID Date Data Source [id number] 04/25/2019 06:21:34 PM EST [facility] - [facility] Name Value Range Interpretation Description Data Sup porting Code Source(s) Document(s ) pH of Arterial 7.46 7.35-7.4 Above high normal [facility] - Good blood 5 [facility] Carbon dioxide 46 mmHg 32-48 [facility] - Good [Partial Taoist pressure] in Hospital Arterial blood Oxygen 118 mmHg 83-108 Above high normal [facility] - Good [Partial Taoist pressure] in Hospital Arterial blood Carbon 34 19-24 Above high normal [facility] - Good dioxide, total mmol/L Taoist [Moles/volume] Hospital in Arterial blood Bicarbonate 33 21-28 Above high normal [facility] - Go od [Moles/volume] mmol/L Taoist in Arterial Hospital blood Oxygen 99 % 94-98 Above high normal [facility] - Good saturation in Taoist Blood [facility] Base excess in 7.7 0-3 Above high normal [facility] - Good Arterial blood mmol/L Taoist by calculation Hospital Body site [facility] - Good [facility] Arterial [facility] - Good patency Wrist Taoist artery --pre Hospital arterial puncture Oxygen gas [facility] - Good flow Oxygen [facility] system Oxygen/Inspire 45.0 % [facility] - Good d gas Taoist Respiratory [facility] system --on ventilator Ventilation [facility] - Good mode Taoist [Identifier] [facility] Ventilator PEEP 7 [facility] - Good Respiratory Taoist system Hospital Pressure 14 [facility] - Good support [facility] Hospital Ventilator Respiratory 16 [facility] - Good rate [facility] Service 43308 [facility] - Good comment [facility] ID Date Data Source [id number] 04/25/2019 05:17:16 PM EST [facility] - Good [facility] Roberto Burgos MD[address], [address] HospitalnicoleCAN[place], [place] [id number] NEUROLOGY FOLLOW-UP NOTEPatient: Evelio Carlin Sex: male DOA: 04/19/2019Date of : 1950 Age: 68 y.o. LOS: LOS: 6 daysSubjective complaints: Spoke with Dr. Reinier cano who said pt had severetremors. This was seen by Dr. Rolan puente yesterday who did not feel these wereseizures.History: 68 yr old M admitt ed from [place] w/fever, hypoxia, hypotension, tachypnea.On BIPAP - can't have EEG. Has history of static encephalopathy. On Lamictal 50mg bid PRODUCTION HELPER.Meds:Current Facil ity-Administered MedicationsMedication Dose Route Frequency LORazepam (ATIVAN) tabl et 1 mg 1 mg Per G Tube QHS potassium chloride (KLOR-CON) packet for solution 40 mEq 40 mEq Per G TubeNOW albuterol-ipratropium (DUO-NEB) 2.5 MG-0 .5 MG/3 ML 3 mL Nebulization Q6HWA RT acetylcysteine (MUCOMYST) 100 mg/mL (10 %) nebulizer solution 400 mg 4 mLInhalation TID RT miconazole (MICOTIN) 2 % cream Topical BID acetaminophen (TYLENOL) tablet 650 mg 650 mg Oral Q4H PRN sodium chlo ride (NS) flush 5-10 mL 5-10 mL IntraVENous PRN budesonide (PULMICORT) 500 mcg/2 ml nebulizer suspension 500 mcg NebulizationBID RT pantoprazole (PROTON IX) 40 mg in 0.9% sodium chloride 10 mL injection 40 mgIntraVENous DAILY cinac alcet (SENSIPAR) tablet 60 mg 60 mg Oral DAILY heparin (porcine) injection 5,000 Units 5,000 Units SubCUTAneous Q12H lamoTRIgine (LaMICtal) tablet 50 mg 50 mg Per G Tube Q12H dextrose 5 % - 0.45% NaCl infusion 100 mL/hr IntraVENous CONTINUO US piperacillin-tazobactam (ZOSYN) 3.375 g in 0.9% sodium chloride (MBP/ADV) 100mL MBP 3.375 g IntraVENous D4CGaihgi of Systems:Unable to assessVisit VitalsBP 1 36/82 (BP 1 Location: Left arm, BP Patient Position: At rest)Pulse 81Temp 98.8 F ( 37.1 C)Resp 27Ht 5' 2" (1.575 m)Wt 122 lb 6.4 oz (55.5 kg)SpO2 98%BMI 22.39 kg/m G eneralChronically ill appearing M on BIPAPMental StatusUnresponsive. No respo nse to voice. Moans to pain. Does not open eyesspontaneously. No speech.Cranial Ner vesKeeps eyes forcibly closed.MotorMoves all extremities spont - tone increased UE. N o tremor currentlySensationGrimaces and moans to noxious stim all 4ReflexesDTRs trace, toes downgoingGait.CerebellumNARecent Labs:Lab ResultsComponent Value Date/Patria e WBC 10.1 04/25/2019 12:10 PM HGB 9.2 (L) 04/25/2019 12:10 PM HCT 29.8 (L) 020 12:10 PM PLATELET 503 (H) 04/25/2019 12:10 PM MCV 98.7 (H) 04/25/2019 12:10 P MLab ResultsComponent Value Date/Time Sodium 143 04/25/2019 05:24 AM Potassium 3.4 (L ) 04/25/2019 05:24 AM Chloride 107 04/25/2019 05:24 AM CO2 34 (H) 04/25/2019 05:24 AM Anion gap 5 (L) 04/25/2019 05:24 AM Glucose 129 (H) 04/25/2019 05:24 AM BUN 28 (H) 0 04/25/2019 05:24 AM Creatinine 1.82 (H) 04/25/2019 05:24 AM GFR est AA 48 (L) 05:24 AM GFR est non-AA 40 (L) 04/25/2019 05:24 AM Calcium 9.0 04/25/19 20 05:24 AM Bilirubin, total 0.2 04/19/2019 10:15 AM AST (SGOT) 21 04/19/2019 10:15 AM Alk. phosphatase 75 04/19/2019 10:15 AM Protein, total 6.3 (L) 04/19/2019 10:15 AM Albumin 1.5 (L) 04/25/2019 05:24 AM Globulin 4.2 04/19/2019 10:15 AM A-G Rat io 0.5 (L) 04/19/2019 10:15 AM ALT (SGPT) 12 (L) 04/19/2019 10:15 AMCT Results (most recent):Results from Hospital Encounter encounter on 04/19/19CT CHEST ABD PELV W O CONT Narrative Referring Physician: MILI HILLSPatient Name: EVELIO MALAVE REPORT FROM IMAGING ON [facility]: CT chest without contrast and CT abdomen pelvis w ithoutcontrastDATE OF EXAM: 2019-04-20 20:52:12IMAGES: 681HISTORY: reduced del th sounds right lung, LLQ tendernessComparison: 03/14/19 and 9FINDINGS: Axial images of the chest, abdomen and pelvis areobtained without iv contra st.Chest: Mediastinal assessment is limited without contrast. Imagequality limited b y artifacts. Patchy lung opacities right greaterthan left similar to prior. Small pleural effusions. Vascularincluding coronary calcifications. Mediastinum kanika ears shifted tothe right. Left hemidiaphragm is elevated.Abdomen and pelvis: Nonspeci fic bowel pattern, with post surgicalchanges on the left. No definite free air. Organ assessmentlimited without iv contrast. No significant free fluid or freeair.No bow el obstruction or abscess seen. Catheter and air in thebladder which is not well asse ssed. Left hip hardware partiallyseen with old fracture deformity. G-J tube is pres ent. Ventralhernia right of midline at abdominal wall with multiple smallbowel loops without obstructive pattern. Mild right muscleswelling with possible hematoma an d calcification at right groinimage 117/120. Degenerative bony changes. Multiple like ly chroniccompression deformities at thoracic and lumbar spine. BilateralL5-S1 spondyl olysis and anterolisthesis. Impression IMPRESSION: Right greater than left lung infiltrates and effusions.No bowel obstruction. 2 cm hyperdensity at a macrina l loop in leftpelvis image 90/120, possibly ingested material, or a tubefragment or post surgical change.Ventral abdominal hernia seen.See above.One or more of the follow ing dose reduction techniques were used:automated exposure control, adjustm ent of the mA and/or kVaccording to patient size, use of iterative reconstructivetec hnique.THIS DOCUMENT HAS BEEN ELECTRONICALLY SIGNEDFrank MD Fredi04/20/2019 22:43 GINA MKevin. Please call [facility] [employer] Consultant [phone] withquestions.T his report was electronically signed by:Marcie Edge MD 04/20/2019 10:44 PMMRI Results (most recent):No results found for this or any previous visit.Assessment:Problem Li st Date Reviewed: 04/25/2019 Codes Class Noted Scrotal rash ICD-10-CM: R21I CD-9-CM: 782.1 04/21/2019 COPD with acute exacerbation (HCC) ICD-10-CM: J44.1ICD-9 -CM: 491.21 04/19/2019 Acute on chronic respiratory failure with hypoxia and hyp ercapnia (HCC)ICD-10-CM: J96.21, J96.22ICD-9-CM: 518.84, 786.09, 799.02 04/19/2019 Acute hypoxemic respiratory failure (HCC) ICD-10-CM: J96.01ICD-9-CM: 518.81 03/25/2019 Pressure injury of right heel, stage 2 (HCC) ICD-10-CM: L89.612ICD-9-CM : 707.07, 707.22 02/09/2019 Leg wound, right, initial encounter ICD-10-CM: S81. 452PNVN-9-MR: 894.0 02/09/2019 SOB (shortness of breath) ICD-10-CM: R06.02I CD-9-CM: 786.05 02/08/2019 Acute respiratory failure with hypoxia (HCC) ICD-10-CM: J9 6.01ICD-9-CM: 518.81 01/10/2019 Pneumonia involving right lung ICD-10-CM: J18.9ICD -9-CM: 486 01/10/2019 Hyponatremia ICD-10-CM: E87.1ICD-9-CM: 276.1 01/10/2019 Generali zed anxiety disorder (Chronic) ICD-10-CM: F41.1ICD-9-CM: 300.02 12/30/2018 Sepsis due to undetermined organism (HCC) ICD-10-CM: A41.9ICD-9-CM: 038.9 12/12/2018 COPD (ch ronic obstructive pulmonary disease) (HCC) ICD-10-CM: J44.9ICD-9-CM: 496 11/08/2018 Acute respiratory distress ICD-10-CM: R06.03ICD-9-CM: 518.82 11/08/2018 Pneumo freddy ICD-10-CM: J18.9ICD-9-CM: 486 11/08/2018 COPD exacerbation (HCC) ICD-10-CM: J44.1 ICD-9-CM: 491.21 11/08/2018 Paraesophageal hiatal hernia ICD-10-CM: K44.9ICD-9-CM: 553.3 09/26/2015Plan: 68 yr old M with tremor, fever, staph sepsis. Seizures le ss likely. Will increase Lamictal to 50-100 EEG if can come off Bipap25 minutes of d irect patient careDavid MD AubreyJanuary 20194:49 PMExt. 8808 Name Value Range Interpretation Code Description Data Harriett rce(s) Supporting Document(s ) ID Date Data Source [id number] 04/26/2019 03:51:42 PM EST [facility] Name Value Range Interpretation Description Data Sup porting Code Source(s) Document(s ) Clostridium NEG Abnormal (applies [facility] - [facility] [Pres[facility]) Hospital in Stool by Probe and target amplification method ID Date Data Source [id number] 04/25/2019 04:58:40 PM EST [facility] Progress NotePatient: Evelio Carlin Sex: male DOA: 04/19/2019Date of : 1950 A ge: 68 y.o. :[id number]:Reyes Carlin is 68 y.o. male who is on BIPAP and minimally responsive. Hiseyes are k ept closed, and on attempts to open his eyes he closes tighter.Pt febrile Tmax 101.4N ursing staff reporting pt pass liquidy stools this morning.S/p removal of mediport thi s morning.Supra therapeutic vanco troughBun/creat up to 12/05.82He has deve loped new tremors b/l upper extremities,His tremors are less today, noted to be more prevalent with stimulation. Neurologist reporting tremors only after stimulation . This most likely 2/2sig medical illness. Unlikely seizures but given questonable history of priorhistory, will r/o w EEG.The patient had presented from [facility] with fev er, hypoxia, O2 SAT 83 %,hypotensive, tachypneic and incomplete bladder emptyi ng. On arrival to the ED,he was unresponsive. He was placed on BIPAP in the ED. Lozano catheter inserted.Found with positive Staph sepsisHe is receiving IV zosyn and vancomycinThe next days he became more awake and alert. He was placed on O2 NC/BIPAP.Surgery was being consulted for possible placement of jejunostomy, due t o pthaving recurrent aspirations with TF.RN reported earlier patient having leaking from the RUE mid line catheter andhaving shaking. His bed sheets were found wet from the leakage and pt becamebetter after the changing of his bed linens.Ordered c xr to evaluate position of mediport.Pt was seen later in the evening with tremors/s haking b/l upper extremities andminimally responsive.He was given IM Ativan 1mg an d req neuro consult.Pt baseline mental status is nonverbal , but awake and alert.He is sandhya TF He has medical history of Dysphagia, recurrent aspiration pneumonia, s/p g/tp lacement 11/17/18 and conversion to jtube on 02/07/19,hyperlipidemia, hyperparathyroi d, unspecified,seizure, large hiatal hernia,anxiety disorder, personal histor y of pulmonary embolus,COPD, GERD,Schizophrenia unspecified, Kyphosis , Parkinson disease, Severe intellectualdisabilities, Contractures a nd Generalized muscle weakness. He had positioningof jejeunal feeding tube and endoclipping on 03/26/19. There was leaking of theTF, the tube was found with a crac k defect.On 04/01/19 he had endoscopic placemetn of jtube over PEG and removal ofdefective tube. Kinking of the jtube was found on KUB with a large volume ofstool within the distal colon/rectum. Pt was tolerating TF via the peg port andwas di scharged to snf and outpatient follow up.On 04/16/2019 pt had ambulatory procedure w ith gi. Per GI, multiple unsuccessfulattempts to place PEJ. He is suggesting surgical placement for J tube placement.Will discuss with surgeon and possible get second opi nion. D/W Dr Mills, he will provide a general surgeon's second opinion. Chest XR dated 04/23/2019 Midline catheter projecting over the rt axilla. Mildconge stive failure with interstitial edema and small b/l pl effusions. 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) Pneumonia Psychiatric disorder s chizophrenia Pulmonary emboli (HCC) Schizophrenia (HCC)Review of Systems: [x ] Unable to obtain ROS due to patient factors.Objective:Visit VitalsBP 136/82 (BP 1 Location: Left arm, BP Patient Position: At rest)Pulse 81Temp 98.8 F ( 37.1 C)Resp 27Ht 5' 2" (1.575 m)Wt 55.5 kg (122 lb 6.4 oz)SpO2 98%BMI 22.39 kg/m PH YSICAL EXAM:General: Minimally responsive, no distress, on BIPAPHead: Normocephal ic, without obvious abnormality, atraumatic.Neck: Supple, symmetrical, no adenopathy, thyroid: non tender no carotid bruit and no JVD.Lungs: Clear to auscultation bilaterally. No Wheezing or Rhonchi. No rales.Chest wall: No Acces augusto muscle use.Heart: Regular rate and rhythm, no murmur, or rub.Abdomen: + peg, + marvel peg hernia,, non-tender. Not distended. Bowel soundsnormal.Extremiti es: Positive edema rue, and Left leg and foot.Skin: Warm and dry. No rashes or lesions. Not JaundicedLymph nodes: Cervical, supraclavicular normal.Neurolo gic: Minimally responsive, some spontaneous right arm movement.Intake and Output:Cur rent Shift: No intake/output data recorded.Last three shifts: 04/23 1901 - 04/25 0700In: 1025 [I.V.:1025]Out: 1150 [Urine:1150]Lab/Data Reviewed:Recent Day s:Recent Labs 04/25/201110WBC 10.1HGB 9.2*HCT 29.8*PLT 503*Recent Labs [id number] 04/23/200619NA 143 141 141K 3.4* 3.3* 3.1*CL 107 105 105CO2 34* 31 31GLU 129* 118* 140*BUN 28* 22* 17CREA 1.82* 1.62* 1.36*CA 9.0 9.2 8.9PHOS 2.6 1.8* --ALB 1.5* 1.6* --No results for input(s): PH, PCO2, PO2, HCO3, FIO2 in t he last 72 hours.Vanco level 32Xr Abd (kub)Result Date: 04/05/2019XR ABD (KUB) CLINICAL INDICATION PROVIDED:. "assess J tube position."TECHNIQUE.: An initial AP image of the abdomen was acquired. Additional APimages of the abdomen were acquired after the hand-injection of a small volumeof radiopaque contrast by the siri ent's nurse into the patient's J-tube.COMPARISON:. 04/02/2019. FINDINGS :. The tip of the 2 projects over the midabdomen, at the level of the mid jeju num. Post injection images demonstrateopacification of loops of mid small bowel. There is no extraluminal contrastappreciated. A large volume of s tool projects over the distal colon/rectum.Densities project over the lower lungs, right greater than left. Considercorrelation with chest radiograp hs.IMPRESSION:. Injected radiopaque contrast appears to be contained within thelumen of the mid small bowel. There is no evidence of extraluminal contrast.Additional find ings and recommendations as above.Xr Abd (kub)Result Date: 04/02/2019KUB 2 view(s ) History: Evaluate J-tube. Comparison: 11/22/2018. There is a newJ-tube overlyin g the mid abdomen with kinking involving its superior andinferior portion overlying t he mid abdomen. These findings were discussed withmale nurse Jacquelyn at 3:40 PM today.. Th ere is mild ileus of the small bowel butthere is no evidence of obstruction, radiopaqu e gallstones, or left kidneystones or an appendicolith. There are possible right kidney stones. Absence ofan appendicolith it does not exclude appendicitis. CT is sug gested if clinicallyindicated. Old rib fractures are noted.IMPRESSION: Kinking of J-tube in 2 locations. Possible right kidney stonesIleus.Ir Picc Insert Wo Por t Over 5 Years Wo ImgResult Date: 04/01/2019IR PICC INSERT WO PORT OVER 5 YEARS WO IMG CLINICAL INDICATION PROVIDED.:"midline." Medical necessity f or vascular access. PROCEDURE: After beinginformed of the risks, benefits, po tential alternatives to the procedure theinformed consent was obtained. The pa tient was placed on the table the supineposition. The right upper extremit y was prepped and draped in the normal sterilefashion. Ultrasound interrogation was performed of the right upper extremity.Images were obtained. A locat ion was chosen over the right brachial vein abovethe antecubital fossa. Lidocaine so lution was used to anesthetize the scan.Access was gained under ultrasound guidance using a 21-gauge thin-walled needle.A 0.018 a wire was advanced under fluoroscopic guidance into the right axillaryvein. The needle was exchanged o lani a wire for the midline dilator and sheath.The dilator and wire were removed leaving the sheath in situ. Through the sheatha 5 Congolese double-lumen 20 cm midl ine catheter was placed. The peel-away sheathwas removed. The catheter was sewn into position using 2-0 silk sutures. Thepatient tolerated the procedure. Ther e were no complications at the time of theprocedure. FINDINGS: Ultrasound inter rogation revealed a widely patent brachialvein above the antecubital fossa . A 5 Congolese dual-lumen 20 cm midline catheterwas placed. The tip was placed i n good position over the right axillary vein.IMPRESSION: 5 Congolese dual-lumen mid line catheter placed with tip positioned overthe right axillary vein.Ct Chest Abd Pelv Wo ContResult Date: 04/20/2019Referring Physician: MILI HILLS Patient Name: EVELIO JOHNSONTAMMY FINAL REPORTFROM [facility] EXAM: CT chest without contrast and CT abdomen pelviswithout contrast DATE OF EXAM: 2019-04-20 20:52:12 IMAGES: 681 HI STORY: reducedbreath sounds right lung, LLQ tenderness Comparison: 03/14/19 and FINDINGS: Axial images of the chest, abdomen and pelvis are obtained without ivcontrast. Chest: Mediastinal assessment is limited without contrast. Imagequality l imited by artifacts. Patchy lung opacities right greater than leftsimilar to prior. Small pleural effusions. Vascular including coronarycalcifications. Mediastinum appe ars shifted to the right. Left hemidiaphragm iselevated. Abdomen and pelvis: Nonspeci fic bowel pattern, with post surgicalchanges on the left. No definite free air. Organ assessment limited without ivcontrast. No significant free fluid or free air. No b owel obstruction or abscessseen. Catheter and air in the bladder which is not well ass essed. Left hiphardware partially seen with old fracture deformity. G-J tube is pres ent.Ventral hernia right of midline at abdominal wall with multiple small bowel loops without obstructive pattern. Mild right muscle swelling with possiblehematoma an d calcification at right groin image 117/120. Degenerative bonychanges. Multiple likel y chronic compression deformities at thoracic and lumbarspine. Bilateral L5-S1 spondyl olysis and anterolisthesis.IMPRESSION: Right greater than left lung infiltrates and e ffusions. No bowelobstruction. 2 cm hyperdensity at a bowel loop in left pel vis image 90/120,possibly ingested material, or a tube fragment or post surgical charles ge. Ventralabdominal hernia seen. See above. One or more of the following dose reduct iontechniques were used: automated exposure control, adjustment of the mA and/or kVa ccording to patient size, use of iterative reconstructive technique. THISDOCUMENT H BEEN ELECTRONICALLY SIGNED Marcie Edge MD 04/20/2019 22:43 GINA MKevin.Please call Katja robert [employer] Consultant [phone] with questions. This reportwas electronically signed by: Marcie Edge MD 04/20/2019 10:44 PMUs Retroperitoneum CompResult Date: 04/23/2019Retroperitoneal sonogram clinical indication acute kidney insufficiency S tudyis limited secondary to position of the patient and the patient'sinability t o cooperate. The abdominal aorta and inferior vena cava are obscured.The right kidney measures 9.2 cm. There is no evidence of hydronephrosis. Theleft kidney measures 9.5 cm. There is no evidence of hydronephrosis. Foleycatheter is seen wi thin the bladder.IMPRESSION: 1. Limited study. 2. No evidence of hydronephrosisX r Chest PortResult Date: 04/23/2019XR CHEST PORT CLINICAL INDICATION PROVIDED:. "Lani ification of PICC lineplacement." TECHNIQUE.: 2 AP views, chest. COMPARISON:. 04/19/2019 . FINDINGS:. Thetip of the vascular catheter projects over the right axilla, likely a midlinecatheter placed on 04/01/2019. The pericardial/cardiac silhouette is enlarg ed inthe transverse dimension. There is mild pulmonary vascular congestion andinterst itial edema. There is suggestion of small bilateral pleural effusions.Density in t he lung bases may represent adjacent atelectasis or superimposedlower lung in filtrates. Follow-up radiographs are recommended.IMPRESSION:. 1. Midline cat heter projecting over the right axilla. 2. Mildcongestive failure with interstitial edema and small bilateral pleuraleffusions.Xr Chest PortResult Pan e: 04/19/2019History: Respiratory difficulty. FINDINGS: A frontal portable view of the chestis submitted for interpretation and is compared to the prior study of04/06/2019 . EKG leads overlie the chest. A right-sided midline catheter is notedin situ. The ca rdiac silhouette measures at the upper limits of normal. There ispatchy opacity noted at the lung bases, left greater than right, which may beinfiltrative or atelectatic in nature. A small left pleural effusion is noted.Mediastinal and hilar structures a re unremarkable.IMPRESSION: Basilar infiltrative change left greater than ri ght. Small leftpleural effusion.Xr Chest PortResult Date: 04/06/2019CHEST one vie w HISTORY: Pneumonia. COMPARISON: 03/25/2019. There is a poorinspiratory effort which compromises this interpretation. A repeat study issuggested. There is discoid atel ectasis and/or subsegmental left lower lobeatelectasis along the left hemidiaph ragm. .There is no gross evidence ofcongestion, effusions or pneumothorax. IMPRESSION: Possible left lower lobe atelectasis. Poor inspiratory effort.Dup krissy Upper Ext Venous LeftResult Date: 04/23/2019DUPLEX UPPER EXTREMITY-VENOUS LE FT HISTORY: Swelling left upperextremity-evaluate for DVT PRIOR: Mireya valdovinos: Most recent February 10, 2019: "Noevidence of deep vein thrombosis." TE CHNICAL FACTORS: High resolution lineargrayscale, color-flow and Doppler evaluation of the left upper extremity wasperformed from the neck to the antecu bital fossa. FINDINGS: Normal antegradeflow, compressibility of the deep venous vascu lature, except for the internaljugular and subclavian veins due to their positions/ anatomic location, as wellas augmentation of flow/phasicity is identified within the visualized portionsof the deep venous system. No filling defects are identified that w ould besuspicious for, or lead customer service representative of DVT.IMPRESSION: 1. No sonographic findin gs suggestive of thrombosis within thevisualized portions of the deep venou s system of the left upper extremity.Medications reviewedCurrent Fa cility-Administered MedicationsMedication Dose Route Frequency LORazepam (ATIVAN) tablet 1 mg 1 mg Per G Tube QHS potassium chloride (KLOR-CON) packet for solution 40 mEq 40 mEq Per G TubeNOW albuterol-ipratropium (DUO-NEB) 2.5 MG-0 .5 MG/3 ML 3 mL Nebulization Q6HWA RT acetylcysteine (MUCOMYST) 100 mg/mL (10 %) nebulizer solution 400 mg 4 mLInhalation TID RT miconazole (MICOTIN) 2 % cream Topical BID acetaminophen (TYLENOL) tablet 650 mg 650 mg Oral Q4H PRN sodium chlo ride (NS) flush 5-10 mL 5-10 mL IntraVENous PRN budesonide (PULMICORT) 500 mcg/2 ml nebulizer suspension 500 mcg NebulizationBID RT pantoprazole (PROTON IX) 40 mg in 0.9% sodium chloride 10 mL injection 40 mgIntraVENous DAILY cinac alcet (SENSIPAR) tablet 60 mg 60 mg Oral DAILY heparin (porcine) injection 5,000 Units 5,000 Units SubCUTAneous Q12H lamoTRIgine (LaMICtal) tablet 50 mg 50 mg Per G Tube Q12H dextrose 5 % - 0.45% NaCl infusion 100 mL/hr IntraVENous CONTINUO US piperacillin-tazobactam (ZOSYN) 3.375 g in 0.9% sodium chloride (MBP/ADV) 100mL MBP 3.375 g IntraVENous [id number]/Plan:Hospital Problems Da te Reviewed: 04/25/2019 Codes Class Noted POA Scrotal rash ICD-10-CM: R21ICD -9-CM: 782.1 04/21/2019 Yes COPD with acute exacerbation (HCC) ICD-10-CM: J44.1ICD-9 -CM: 491.21 04/19/2019 Unknown Acute on chronic respiratory failure with hypoxia and hypercapnia (HCC)ICD-10-CM: J96.21, J96.22ICD-9-CM: 518.84, 786.09, 799.02 04/19/2019 Unknown Acute hypoxemic respiratory failure (HCC) ICD-10-CM: J96.01ICD-9-CM: 518.81 03/25/2019 Unknown Pneumonia ICD-10-CM: J18.9ICD-9-CM: 486 11/08/2018 UnknownAssessment:Staph SepsisNew tremorsFeversUnresponsive- recurrentAcut e Kidney InjurySupra therapeutic vanco troughEdema rue and Left LEDisplaced mid line catheterAcute Respiratory Failure with Hypoxia and HypercapniaAcute COPD exacer bationAspiration PneumoniaAtelectasisS/P Unresponsive on admission like secondary to Toxic Metabolic EncephalopathyDysphagiaMalfunctioning PE JIncomplete bladder emptyingHyperparathyroidSeizureHypokalem iaMentally challenged Plan:Neuro f/uUnable to perform EEG 2/2 presence of BIPAPContinu e lamictalDC xanax q hs, 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 TranxeneSwitch to Ativ an 1mg via peg q hs IV vancomycin was DC'dContinue zosyn per IDVenous duplex rue and left LEIV fluids per renalPulmonary f/uVoiding trialContinue nebulizersSurge ry f/uReplace potassiumNutrition F/u repeat culturesShirronni HillsJeweluary 20Time: 4:26 PM Name Value Range Interpretation Code Description Data Harriett rce(s) Supporting Document(s ) ID Date Data Source [id number] 04/25/2019 04:24:09 PM [facility] Progress NotePatient: Evelio Carlin Sex: male DOA: 04/19/2019Date of : 1950 A ge: 68 y.o. :[id number]:Reyes Carlin is 68 y.o. male who is on BIPAP and minimally responsive. Hiseyes are k ept closed, and on attempts to open his eyes he closes tighter.The patient was seen a nd examined at bedside on 04/24/2019.He has developed new tremors b/l upper extremit ies, seen by neurology earliertoday. Neurologist reporting tremors only after stimulation. This most likely2/2 sig medical illness. Unlikely seizures but given que stonable history ofprior history, will r/o w EEG.The patient had presented from [facility] with fever, hypoxia, O2 SAT 83 %,hypotensive, tachypneic and incomplete bladder emptyi ng. On arrival to the ED,he was unresponsive. He was placed on BIPAP in the ED. Lozano catheter inserted.Found with positive Staph sepsisHe is receiving IV zosyn and vancomycinThe next days he became more awake and alert. He was placed on O2 NC/BIPAP.Surgery was being consulted for possible placement of jejunostomy, due t o pthaving recurrent aspirations with TF.RN reported earlier patient having leaking from the RUE mid line catheter andhaving shaking. His bed sheets were found wet from the leakage and pt becamebetter after the changing of his bed linens.Ordered c xr to evaluate position of mediport.Pt was seen later in the evening with tremors/s haking b/l upper extremities andminimally responsive.He was given IM Ativan 1mg an d req neuro consult.Pt baseline mental status is nonverbal , but awake and alert.He is sandhya TF He has medical history of Dysphagia, recurrent aspiration pneumonia, s/p g/tp lacement 11/17/18 and conversion to jtube on 02/07/19,hyperlipidemia, hyperparathyroi d, unspecified,seizure, large hiatal hernia,anxiety disorder, personal histor y of pulmonary embolus,COPD, GERD,Schizophrenia unspecified, Kyphosis , Parkinson disease, Severe intellectualdisabilities, Contractures a nd Generalized muscle weakness. He had positioningof jejeunal feeding tube and endoclipping on 03/26/19. There was leaking of theTF, the tube was found with a crac k defect.On 04/01/19 he had endoscopic placemetn of jtube over PEG and removal ofdefective tube. Kinking of the jtube was found on KUB with a large volume ofstool within the distal colon/rectum. Pt was tolerating TF via the peg port andwas di scharged to snf and outpatient follow up.On 04/16/2019 pt had ambulatory procedure w ith gi. Per GI, multiple unsuccessfulattempts to place PEJ. He is suggesting surgical placement for J tube placement.Will discuss with surgeon and possible get second opi nishakira. D/W Dr Mills, he will provide a general surgeon's second opinion. Chest XR dated 04/23/2019 Midline catheter projecting over the rt axilla. 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 Most recent a re:Visit VitalsBP 114/78 (BP 1 Location: Left arm, BP Patient Position: At rest)Pulse 83Temp 98 F (36.7 C)Resp 20Ht 5' 2" (1.575 m)Wt 53.5 kg (118 lb)SpO2 94%BMI 21.58 k g/m PHYSICAL EXAM:General: Minimally responsive, no distress, on BIPAPHead: Normocephalic, without obvious abnormality, atraumatic.Eyes: Eyes kept tightly closedNeck: Supple, symmetrical, no adenopathy, no carotid bruit and no JVD.Lungs: Clear to auscultation bilaterally. No Wheezing or Rhonchi. No rales.Chest wall: No Accessory muscle use.Heart: Regular rate and rhythm, n o murmur, or rubAbdomen: Positive peg LUQ, + marvel peg hernia, non-tender. Not dist ended.Bowel sounds normal.Extremities: + mid line rue, +contractures to lower ext remities. No cyanosis.Positive left pedal edema and edema lueSkin: Warm and dr y. No rashes or lesions. Not JaundicedLymph nodes: Cervical, supraclavicular normal. Neurologic: Minimal responsive,Intake and Output:Current Shift: No intake/output data recorded.Last three shifts: 04/23 1900 - 04/25 0700In: 1025 [I.V.:1025]Out: 115 0 [Urine:1150]Lab/Data Reviewed:Recent Days:No results for input(s): WBC, HGB, HCT, PLT, HGBEXT, HCTEXT, PLTEXT in the last72 hours.Recent Labs 04/25/200424 0 04/24/200535 04/23/200619NA 143 141 141K 3.4* 3.3* 3.1*CL 107 105 105CO2 34* 31 31GLU 129* 118* 140*BUN 28* 22* 17CREA 1.82* 1.62* 1.36*CA 9.0 9.2 8.9PHOS 2.6 1.8* --ALB 1.5* 1.6* --No results for input(s): PH, PCO2, PO2, HCO3, FIO2 in the last 72 tammy rs.CULTURE, BLOOD [[id number]] (Order [id number])MicrobiologyDate: 04/19/2019 Dep artment: [facility] 3t Med Surg Released By/Authorizing: Neeta Coleman NP (auto-r eleased)Specimen Information: Blood Component Value Flag Ref Range Units StatusSpecial Requests: FinalNO SPECIAL REQUESTSGRAM STAIN FinalGRAM POSITIVE COCCI IN C LUSTERS ANAEROBIC BOTTLEGRAM STAIN FinalCALLED TO AND READ BACK BY ROB LEDEZMA, RN, ED, AT 0953 ON 04/20/19 TORISMIRAGLIACulture result: Abnormal FinalSTAPHYLOCOCCUS EPIDERMIDISSusceptibilityStaphylococcus epidermidisAntibiotic Interpretation Value Method CommentClindamycin ($) Resistant <=0.25 ug/mL MICErythromycin ($$$$) Resistant >=8 ug/mL MICGentamicin ($) Susceptible <=0.5 ug/mL MICOxacillin Resistant >=4 ug/mL MICPenicillin G ($$) Resistant >=0.5 ug/ mL MICVancomycin ($) Susceptible 2 ug/mL MICTetracycline Resistant >=16 ug/mL ANTONIO SusceptibilityStaphylococcus epidermidis (1)Antibiotic Interpretation Method Stat usClindamycin ($) Resistant ANTONIO FinalErythromycin ($$$$) Resistant ANTONIO F inalGentamicin ($) Susceptible ANTONIO FinalOxacillin Resistant ANTONIO FinalPenici llin G ($$) Resistant ANTONIO FinalVancomycin ($) Susceptible ANTONIO FinalTetracycline Resist ant ANTONIO FinalLab and CollectionCULTURE, BLOOD (Order: [id number]) - 04/19/2019CULTURE, BL OOD [[id number]] (Order [id number])MicrobiologyDate: 04/20/2019 Dep artment: [facility] 3t Med Surg Released By/Authorizing: Monica Gomez MD (auto- released)Specimen Information: Blood Component Value Flag Ref Range Units Sta tusSpecial Requests: PreliminaryNO SPECIAL REQUESTSCulture result: NO GROWT H 4 DAYS PreliminaryLab and CollectionCULTURE, BLOOD (Order: [id number]) - 04/20/2019Result HistoryCULTURE, BLOOD (Order #[id number]) on 04/24/2019 - Order Result History ReportXr Abd (kub)Result Date: 04/05/2019XR ABD (KUB) CLINICAL INDICATI ON PROVIDED:. "assess J tube position."TECHNIQUE.: An initial AP imag e of the abdomen was acquired. Additional APimages of the abdomen were acquired af ter the hand-injection of a small volumeof radiopaque contrast by the patient's mason se into the patient's J-tube.COMPARISON:. 04/02/2019. FINDINGS:. The tip of the 2 projects over the midabdomen, at the level of the mid jejunum. Post injection images d emonstrateopacification of loops of mid small bowel. There is no extraluminal contrast appreciated. A large volume of stool projects over the distal colon/rectum.Densities p roject over the lower lungs, right greater than left. Considercorrelation with ches t radiographs.IMPRESSION:. Injected radiopaque contrast appears to be contai nataly within thelumen of the mid small bowel. There is no evidence of extraluminal con trast.Additional findings and recommendations as above.Xr Abd (kub)Result Date: 2018KUB 2 view(s) History: Evaluate J-tube. Comparison: 11/22/2018. There is a newJ-t ube overlying the mid abdomen with kinking involving its superior andinferior porti on overlying the mid abdomen. These findings were discussed withmale nurse Mora at 3:4 0 PM today.. There is mild ileus of the small bowel butthere is no evidence of obstruc tion, radiopaque gallstones, or left kidneystones or an appendicolith. There are possible right kidney stones. Absence ofan appendicolith it does not exclude a ppendicitis. CT is suggested if clinicallyindicated. Old rib fractures a re noted.IMPRESSION: Kinking of J-tube in 2 locations. Possible right kidney stonesI leus.Ir Picc Insert Wo Port Over 5 Years Wo ImgResult Date: 04/01/2019IR PICC INSERT WO PORT OVER 5 YEARS WO IMG CLINICAL INDICATION PROVIDED.:"midline." Medical necessity for vascular access. PROCEDURE: After beinginformed of the risks, benefi ts, potential alternatives to the procedure theinformed consent was obtained. The pa tient was placed on the table the supineposition. The right upper extremit y was prepped and draped in the normal sterilefashion. Ultrasound interrogation was performed of the right upper extremity.Images were obtained. A locat ion was chosen over the right brachial vein abovethe antecubital fossa. Lidocaine so lution was used to anesthetize the scan.Access was gained under ultrasound guidance using a 21-gauge thin-walled needle.A 0.018 a wire was advanced under fluoroscopic guidance into the right axillaryvein. The needle was exchanged o lani a wire for the midline dilator and sheath.The dilator and wire were removed leaving the sheath in situ. Through the sheatha 5 Congolese double-lumen 20 cm midl ine catheter was placed. The peel-away sheathwas removed. The catheter was sewn into position using 2-0 silk sutures. Thepatient tolerated the procedure. Ther e were no complications at the time of theprocedure. FINDINGS: Ultrasound inter rogation revealed a widely patent brachialvein above the antecubital fossa . A 5 Congolese dual-lumen 20 cm midline catheterwas placed. The tip was placed i n good position over the right axillary vein.IMPRESSION: 5 Congolese dual-lumen mid line catheter placed with tip positioned overthe right axillary vein.Ct Chest Abd Pelv Wo ContResult Date: 04/20/2019Referring Physician: MILI HILLS Patient Name: EVELIO CARLIN FINAL REPORTFROM [facility] DAY [facility] EXAM: CT chest without contrast and CT abdomen pelviswithout contrast DATE OF EXAM: 2019-04-20 20:52:12 IMAGES: 681 HI STORY: reducedbreath sounds right lung, LLQ tenderness Comparison: 03/14/19 and FINDINGS: Axial images of the chest, abdomen and pelvis are obtained without ivcontrast. Chest: Mediastinal assessment is limited without contrast. Imagequality l imited by artifacts. Patchy lung opacities right greater than leftsimilar to prior. Small pleural effusions. Vascular including coronarycalcifications. Mediastinum appe ars shifted to the right. Left hemidiaphragm iselevated. Abdomen and pelvis: Nonspeci fic bowel pattern, with post surgicalchanges on the left. No definite free air. Organ assessment limited without ivcontrast. No significant free fluid or free air. No b owel obstruction or abscessseen. Catheter and air in the bladder which is not well ass essed. Left hiphardware partially seen with old fracture deformity. G-J tube is pres ent.Ventral hernia right of midline at abdominal wall with multiple small bowel loops without obstructive pattern. Mild right muscle swelling with possiblehematoma an d calcification at right groin image 117/120. Degenerative bonychanges. Multiple likel y chronic compression deformities at thoracic and lumbarspine. Bilateral L5-S1 spondyl olysis and anterolisthesis.IMPRESSION: Right greater than left lung infiltrates and e ffusions. No bowelobstruction. 2 cm hyperdensity at a bowel loop in left pel vis image 90/120,possibly ingested material, or a tube fragment or post surgical charles ge. Ventralabdominal hernia seen. See above. One or more of the following dose reduct iontechniques were used: automated exposure control, adjustment of the mA and/or kVa ccording to patient size, use of iterative reconstructive technique. THISDOCUMENT H BEEN ELECTRONICALLY SIGNED Marcie Edge MD 04/20/2019 22:43 GINA VerdePlease call Katjadevang berger Wireless Consultant [phone] ([phone]) with questions. This reportwas electronically signed by: Marcie Edge MD 04/20/2019 10:44 PMUs Retroperitoneum CompResult Date: 04/23/2019Retroperitoneal sonogram clinical indication acute kidney insufficiency S tudyis limited secondary to position of the patient and the patient'sinability t o cooperate. The abdominal aorta and inferior vena cava are obscured.The right kidney measures 9.2 cm. There is no evidence of hydronephrosis. Theleft kidney measures 9.5 cm. There is no evidence of hydronephrosis. Foleycatheter is seen wi thin the bladder.IMPRESSION: 1. Limited study. 2. No evidence of hydronephrosisX r Chest PortResult Date: 04/23/2019XR CHEST PORT CLINICAL INDICATION PROVIDED:. "Lani ification of PICC lineplacement." TECHNIQUE.: 2 AP views, chest. COMPARISON:. 04/19/2019 . FINDINGS:. Thetip of the vascular catheter projects over the right axilla, likely a midlinecatheter placed on 04/01/2019. The pericardial/cardiac silhouette is enlarg ed inthe transverse dimension. There is mild pulmonary vascular congestion andinterst itial edema. There is suggestion of small bilateral pleural effusions.Density in t he lung bases may represent adjacent atelectasis or superimposedlower lung in filtrates. Follow-up radiographs are recommended.IMPRESSION:. 1. Midline cat heter projecting over the right axilla. 2. Mildcongestive failure with interstitial edema and small bilateral pleuraleffusions.Xr Chest PortResult Pan e: 04/19/2019History: Respiratory difficulty. FINDINGS: A frontal portable view of the chestis submitted for interpretation and is compared to the prior study of04/06/2019 . EKG leads overlie the chest. A right-sided midline catheter is notedin situ. The ca rdiac silhouette measures at the upper limits of normal. There ispatchy opacity noted at the lung bases, left greater than right, which may beinfiltrative or atelectatic in nature. A small left pleural effusion is noted.Mediastinal and hilar structures a re unremarkable.IMPRESSION: Basilar infiltrative change left greater than ri ght. Small leftpleural effusion.Xr Chest PortResult Date: 04/06/2019CHEST one vie w HISTORY: Pneumonia. COMPARISON: 03/25/2019. There is a poorinspiratory effort which compromises this interpretation. A repeat study issuggested. There is discoid atel ectasis and/or subsegmental left lower lobeatelectasis along the left hemidiaph ragm. .There is no gross evidence ofcongestion, effusions or pneumothorax. IMPRESSION: Possible left lower lobe atelectasis. Poor inspiratory effort.Dup krissy Upper Ext Venous LeftResult Date: 04/23/2019DUPLEX UPPER EXTREMITY-VENOUS LE FT HISTORY: Swelling left upperextremity-evaluate for DVT PRIOR: Mireya valdovinos: Most recent February 10, 2019: "Noevidence of deep vein thrombosis." TE CHNICAL FACTORS: High resolution lineargrayscale, color-flow and Doppler evaluation of the left upper extremity wasperformed from the neck to the antecu bital fossa. FINDINGS: Normal antegradeflow, compressibility of the deep venous vascu lature, except for the internaljugular and subclavian veins due to their positions/ anatomic location, as wellas augmentation of flow/phasicity is identified within the visualized portionsof the deep venous system. No filling defects are identified that w ould besuspicious for, or lead customer service representative of DVT.IMPRESSION: 1. No sonographic findin gs suggestive of thrombosis within thevisualized portions of the deep venou s system of the left upper extremity.Medications reviewedCurrent Fa cility-Administered MedicationsMedication Dose Route Frequency LORazepam (ATIVAN) tablet 1 mg 1 mg Per G Tube QHS potassium chloride (KLOR-CON) packet for solution 40 mEq 40 mEq Per G TubeNOW albuterol-ipratropium (DUO-NEB) 2.5 MG-0 .5 MG/3 ML 3 mL Nebulization Q6HWA RT acetylcysteine (MUCOMYST) 100 mg/mL (10 %) nebulizer solution 400 mg 4 mLInhalation TID RT miconazole (MICOTIN) 2 % cream Topical BID acetaminophen (TYLENOL) tablet 650 mg 650 mg Oral Q4H PRN sodium chlo ride (NS) flush 5-10 mL 5-10 mL IntraVENous PRN budesonide (PULMICORT) 500 mcg/2 ml nebulizer suspension 500 mcg NebulizationBID RT pantoprazole (PROTON IX) 40 mg in 0.9% sodium chloride 10 mL injection 40 mgIntraVENous DAILY cinac alcet (SENSIPAR) tablet 60 mg 60 mg Oral DAILY heparin (porcine) injection 5,000 Units 5,000 Units SubCUTAneous Q12H lamoTRIgine (LaMICtal) tablet 50 mg 50 mg Per G Tube Q12H dextrose 5 % - 0.45% NaCl infusion 100 mL/hr IntraVENous CONTINUO US piperacillin-tazobactam (ZOSYN) 3.375 g in 0.9% sodium chloride (MBP/ADV) 100mL MBP 3.375 g IntraVENous [id number]/Plan:Hospital Problems Da te Reviewed: 04/21/2019 Codes Class Noted POA Scrotal rash ICD-10-CM: W56IEE-2-TV: 782.1 04/21/2019 Yes COPD with acute exacerbation (HCC) ICD-10-CM: J44.1ICD-9 -CM: 491.21 04/19/2019 Unknown Acute on chronic respiratory failure with hypoxia and hypercapnia (HCC)ICD-10-CM: J96.21, J96.22ICD-9-CM: 518.84, 786.09, 799.02 04/19/2019 Unknown Acute hypoxemic respiratory failure (HCC) ICD-10-CM: J96.01ICD-9-CM: 518.81 03/25/2019 Unknown Pneumonia ICD-10-CM: J18.9ICD-9-CM: 486 11/08/2018 UnknownAssessment:Staph SepsisNew tremorsUnresponsive- recurrentDisplaced mid line catheterAcute Respiratory Failure with Hypoxia and HypercapniaAcute COPD e xacerbationAspiration PneumoniaAtelectasisS/P Unresponsive on admission like secondary to Toxic Metabolic EncephalopathyDysphagiaMalfunctioning PE JIncomplete bladder emptyingHyperparathyroidSeizureMentally challenged Plan:Neuro f/uUnable to perform EEG 2/ presence of BIPAPConsult hospita list staff for removal of displaced mid line cathContinue IV vancomycin and zosyn per IDPulmonary f/uVoiding trialContinue nebulizersSurgery f/uNutrition Jewel Hilluary 2019Time: 3:14 PM Name Value Range Interpretation Code Description Data Harriett rce(s) Supporting Document(s ) ID Date Data Source [id number] 04/25/2019 01:17:25 PM [facility] Progress NoteEmanuel Pfsrgulro89 y.o.Adm it Date: 04/19/2019Subjective:Patient lethargicReview of systems not obtained due to patient factors.Objective:Visit VitalsBP 125/61 (BP 1 Location: Left arm , BP Patient Position: At rest)Pulse 91Temp 100.3 F (37.9 C)Resp 28Ht 5' 2" (1.575 m)Wt 55.5 kg (122 lb 6.4 oz)SpO2 100%BMI 22.39 kg/m Intake/Output Summary (Last 2 4 hours) at 04/25/2019 1314Last data filed at 04/25/2019 0651Gross per 24 hourIntake 10 25 mlOutput 300 mlNet 725 mlCurrent Facility-Administered MedicationsMedicat ion Dose Route Frequency Provider Last Rate Last Dose albuterol-ipratropium (DUO-NE B) 2.5 MG-0.5 MG/3 ML 3 mL Nebulization Q6HWA Mili Diaz DO 3 mL at 0750 acetylcysteine (MUCOMYST) 100 mg/mL (10 %) nebulizer solution 400 mg 4 mLInhalation TID RT Mili Hills DO 400 mg at 04/25/19 0750 miconazole (ANTONIO OTIN) 2 % cream Topical BID Zuly Lacey NP acetaminophen (TYLENOL) tablet 650 m g 650 mg Oral Q4H PRN Mili Hills DO650 mg at 04/25/19 0903 sodium chloride (NS ) flush 5-10 mL 5-10 mL IntraVENous PRN Neeta Coleman NP budesonide (PULMICORT ) 500 mcg/2 ml nebulizer suspension 500 mcg NebulizationBID RT Krystian Monae MD 5 00 mcg at 04/25/19 0750 pantoprazole (PROTONIX) 40 mg in 0.9% sodium chloride 10 mL injection 40 mgIntraVENous DAILY Mili Hills DO 40 mg at 04/25/19 0903 cinacalcet (SENSIPAR) tablet 60 mg 60 mg Oral DAILY Mili Hills DO 60mg at 04/25/19 0903 ALPRAZolam (XANAX) tablet 0.5 mg 0.5 mg Per G Tube QHS Maryam Hills DO0.5 mg at 04/24/19 2146 heparin (porcine) injection 5,000 Units 5,000 U nits SubCUTAneous Q12H Mili Hills DO 5,000 Units at 04/25/19 0600 lamoTRIgin e (LaMICtal) tablet 50 mg 50 mg Per G Tube Q12H Mili Hills DO50 mg at 0 0903 dextrose 5 % - 0.45% NaCl infusion 70 mL/hr IntraVENous CONTINUOUS Eloisa Hills DO 70 mL/hr at 04/22/19 1453 70 mL/hr at 04/22/19 1453 piperacillin-tazobacta m (ZOSYN) 3.375 g in 0.9% sodium chloride (MBP/ADV) 100mL MBP 3.375 g IntraVENous Q8H Natasha Dudley MD 25 mL/hr at 04/25/19 0600 3.375g at 04/25/19 0600Physical Exa m:Physical Exam:General: Awake, No distressNeck: SuppleLungs: Clear to au scultationHeart: S1, J8Mqduuzp: Soft, non-tender. Bowel sounds normal. No mass es, No organomegaly.Extremities: EdemaData Review:CBC w/DiffNo results for input(s) : WBC, RBC, HGB, HCT, MCV, MCH, MCHC, RDW, HGBEXT, HCTEXTin the last 72 hours.No la b exists for component: PLATELET, MPV No results for input(s): BANDS,LYMPHOCYTES, MONOS, EOS, BASOS, PROMYELOCYTE, BLAST, RDW in the last 72 hours.No lab exists for c omponent: RELNEU, RELLYM, RELMONO, RELEOS, RELBAS, SEGS,MYELOCYTE, META Lab Results Component Value Date/Time PLATELET 239 04/20/2019 04:30 AMComprehensive Metabol ic ProfileRecent Labs 04/24/2005NA 143 141 141K 3.4* 3.3* 3.1*CL 107 105 105CO2 34* 31 31BUN 28* 22* 17CREA 1.82* 1.62* 1.36* Recent Labs 04/24/200504/23/200619CA 9.0 9.2 8.9PHOS 2.6 1.8* --ALB 1.5* 1.6* --X-RAY (Last 24 Hours)No results found.IMPRESSION:Patient Active Problem ListDiagnosis Code 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 COPD (chronic obstr uctive pulmonary disease) ([facility]) J44.9 Acute respiratory distress R06.03 Pneumonia J 18.9 COPD exacerbation ([facility]) J44.1 Sepsis due to undetermined organism ([facility]) A41.9 Generalized anxiety disorder F41.1 Acute respiratory failure with hypoxia ([facility]) J 96.01 Pneumonia involving right lung J18.9 Hyponatremia E87.1 SOB (shortness of br eath) R06.02 Pressure injury of right heel, stage [address]) L89.612 Leg wound, right, initial encounter S81.801A Acute hypoxemic respiratory failure ([facility]) J96.01 COPD w ith acute exacerbation ([facility]) J44.1 Acute on chronic respiratory failure with hypoxia and hypercapnia (HCC)J96.21, J96.22 Scrotal rash R21 PLAN: Increase ivf Monitor l abs Monitor bun/creat Further recommendations will be based on the pat ient's response to recommendedtreatment and results of the investigation ordered.Toni Iverson MD04/25/20191:14 PM Name Value Range Interpretation Code Description Data Harriett rce(s) Supporting Document(s ) ID Date Data Source [id number] 04/30/2019 01:52:07 PM EST [facility] Name Value Range Interpretation Description Data Sup porting Code Source(s) Document(s ) Service comment BSS - [facility] Bacteria BSS [facility] identified in [facility] specimen by Culture ID Date Data Source [id number] 04/25/2019 03:54:29 PM EST [facility] Name Value Range Interpretation Description Data Sup porting Code Source(s) Document(s ) Leukocytes 10.1 4.8-10.6 [facility] - [#/volume] in K/uL Good Blood by Taoist Automated count [facility] Erythrocytes 3.02 4.70-6.0 Below low normal [facility] - [#/volume] in M/uL 0 Good Blood by Taoist Automated count [facility] Hemoglobin 9.2 g/dL 14.0-18. Below low normal [facility] - [Mass/volume] in 0 Good Blood [facility] Hematocrit 29.8 % 42.0-52. Below low normal [facility] - [Volume 0 Good Fraction] of Taoist Blood by Hospital Automated count Erythrocyte mean 98.7 FL 81.0-94. Above high normal [facility] - corpuscular 0 Good volume [Entitic Taoist volume] by Hospital Automated count Erythrocyte mean 30.5 PG 27.0-35. [facility] - corpuscular 0 Good hemoglobin Taoist [Entitic mass] [facility] by Automated count Erythrocyte mean 30.9 30.7-37. [facility] - corpuscular g/dL 3 Good hemoglobin [facility] [Mass/volume] by Automated count Erythrocyte 18.0 % 11.5-14. Above high normal [facility] - distribution 0 Good width [Ratio] by Taoist Automated count [facility] Platelets 503 K/uL 130-400 Above high normal [facility] - [#/volume] in [facility] Blood by Taoist Automated count Hospital Platelet mean 9.1 FL 9.2-11.8 Below low normal [facility] - volume [Entitic Good volume] in Blood Taoist by Automated Hospital count Nucleated 0.0 PER 0 [facility] - erythrocytes/100 100 WBC Good leukocytes Taoist [Ratio] in Blood [facility] Nucleated 0.00 0.0-0.01 [facility] - erythrocytes K/uL Good [#/volume] in [facility] Segmented 72 % 48.0-72. [facility] - neutrophils/100 0 Good leukocytes in [facility] Lymphocytes/100 13 % 18.0-40. Below low normal [facility] - leukocytes in 0 [facility] Monocytes/100 13 % 2.0-12.0 Above high normal [facility] - leukocytes in [facility] Eosinophils/100 1 % 0.0-7.0 [facility] - leukocytes in [facility] Basophils/100 0 % 0.0-3.0 [facility] - leukocytes in [facility] Immature 1 % 0-0.5 Above high normal [facility] - granulocytes/100 Good leukocytes in Taoist Blood by Hospital Automated count Segmented 7.3 K/UL 2.3-7.6 [facility] - neutrophils Good [#/volume] in [facility] Lymphocytes 1.3 K/UL 0.9-4.2 [facility] - [#/volume] in [facility] Monocytes 1.3 K/UL 0.1-1.7 [facility] - [#/volume] in [facility] Eosinophils 0.1 K/UL 0.0-1.0 [facility] - [#/volume] in [facility] Basophils 0.0 K/UL 0.0-0.4 [facility] - [#/volume] in [facility] Immature 0.1 K/UL 0.0-0.17 [facility] - granulocytes Good [#/volume] in [facility] by Hospital Automated count Differential [facility] - cell count Good method [facility] ID Date Data Source [id number] 04/30/2019 01:52:08 PM EST [facility] - [facility] Name Value Range Interpretation Description Data Sup porting Code Source(s) Document(s ) [facility] Bacteria [facility] Jeremy Marc identified in [facility] specimen by Culture ID Date Data Source [id number] 04/25/2019 11:50:29 AM EST [facility] ID Progress Note04/25/2019Subjective:Pt w ith fever to 101.4, wbc up to 12.8KLethargic non verbal on BiPAPBlood cultures positi ve for staph epidermidisRepeat blood cultures no growth.High vancomycin trough level a nd vanco stoppedWorsening renal function.Objective:Review of SystemsPati ent is unable to provideVitals:Patient Vitals for the past 24 hrs: BP Temp Pulse Resp SpO2 Yqcixm18/11/20 1015 125/61 100.3 F (37.9 C) 91 (!) 35 100 % -04/25/19 0745 145/68 (!) 101.4 F (38.6 C) 97 (!) 32 - -04/25/19 0701 - - - - - 55.5 kg (122 lb 6.4 oz)04/25/19 0415 127/66 98.7 F (37.1 C) 91 16 97 % -04/25/19 0222 - - - - 99 % -04/25/19 0021 113/77 99.1 F (37.3 C) 99 18 96 % -04/24/19 2016 106/90 98.8 F (3 7.1 C) 94 18 97 % -04/24/19 1946 - - - - 97 % -04/24/19 1611 114/78 98 F (36.7 C) 83 20 94 % -04/24/19 1510 - - - - 99 % -Tmax: Temp (24hrs), Av.4 F (37.4 C), Mi n:98 F (36.7 C), Max:101.4 F(38.6 C)Physical Exam:General: Lethargic on B iPAP,no distressEyes: Conjunctivae/corneas clear. PERRLNeck: Supple, symmetrical, t rachea midline, no adenopathyLungs: bilateral breath sounds with basal crack les..Heart: Regular rate and rhythm, S1, S2 normal, no murmurAbdomen: Soft, non-te nder. Bowel sounds normal. No masses, Noorganomegaly.peg+Back: Symmetric, no curvature. ROM normal. No CVA tenderness.Extremities: No cyanosis ,chr onic lymphedema .Pulses: 2+ and symmetric all extremities.Skin: Skin color, texture, t urgor normal. No rashes or lesionsLymph nodes: Cervical, supraclavicular, and ax illary nodes normal.Current Facility-Administered MedicationsMedicat ion Dose Route Frequency albuterol-ipratropium (DUO-NEB) 2.5 MG-0 .5 MG/3 ML 3 mL Nebulization Q6HWA RT acetylcysteine (MUCOMYST) 100 mg/mL (10 %) nebulizer solution 400 mg 4 mLInhalation TID RT miconazole (MICOTIN) 2 % cream Topical BID acetaminophen (TYLENOL) tablet 650 mg 650 mg Oral Q4H PRN sodium chlo ride (NS) flush 5-10 mL 5-10 mL IntraVENous PRN budesonide (PULMICORT) 500 mcg/2 ml nebulizer suspension 500 mcg NebulizationBID RT pantoprazole (PROTON IX) 40 mg in 0.9% sodium chloride 10 mL injection 40 mgIntraVENous DAILY cinac alcet (SENSIPAR) tablet 60 mg 60 mg Oral DAILY ALPRAZolam (XANAX) tablet 0.5 mg 0.5 mg Per G Tube QHS heparin (porcine) injection 5,000 Units 5,000 Units SubCU TAneous Q12H lamoTRIgine (LaMICtal) tablet 50 mg 50 mg Per G Tube Q12H dextrose 5 % - 0.45% NaCl infusion 70 mL/hr IntraVENous CONTINUOUS piperacillin-cuba obactam (ZOSYN) 3.375 g in 0.9% sodium chloride (MBP/ADV) 100mL MBP 3.375 g In traVENous Q2OAskh:Recent Labs 04/24/200504/23/200619BUN 28* 22* 17C SHILO 1.82* 1.62* 1.36*Cultures:Lab ResultsComponent Value Date/Time Culture result: NO GROWTH 4 DAYS 04/20/2019 02:47 PM Culture result: NO GROWTH 4 DAYS 020 02:40 PM Culture result: STAPHYLOCOCCUS EPIDERMIDIS (A) 04/19/2019 10:15 AMRadio logy:No results found.Assessment: Staph sepsis. Aspiration pneumonia. Acute CO PD exacerbation. Acute respiratory failure. Pleural effusion. Dysphagia Fever Plan :1. Continue IV zosyn.2. PICC line is removed3. Will get Bcx x 2 and UA, UCxMa hlet MD HenriJanuary AM Name Value Range Interpretation Code Description Data Harriett rce(s) Supporting Document(s ) ID Date Data Source [id number] 04/26/2019 11:20:13 AM EST [facility] Name Value Range Interpretation Description Data Sup porting Code Source(s) Document(s ) Service comment [facility] Bacteria [facility] ID Date Data Source [id number] 04/25/2019 12:36:51 PM EST [facility] Name Value Range Interpretation Description Data Sup porting Code Source(s) Document(s ) Color of Urine YEL [facility] - [facility] Appearance of CLEAR Abnormal (applies [facility] - Urine to non-numeric Good results) [facility] Specific gravity 1.014 1.003-1. [facility] - of Urine by 030 Good Refractometry [facility] pH of Urine by 5.5 4.6-8.0 [facility] - Test strip [facility] Protein 30 mg/dL NEG Abnormal (applies [facility] - [Mass/volume] in to non-numeric Good Urine by Test results) [facility] Glucose NEG [facility] - [Mass/volume] in Good Urine by Taoist Automated test Hospital strip Ketones NEG [facility] - [Presence] in Good Urine by Taoist Automated test [facility] strip Bilirubin.total NEG [facility] - [Presence] in Good Urine [facility] Hemoglobin NEG [facility] - [Presence] in Good Urine by Test [facility] Urobilinogen 0.2 0.2-1.0 [facility] - [Presence] in EU/dL Good Urine by Taoist Automated test [facility] strip Nitrite NEG [facility] - [Presence] in Good Urine by Taoist Automated test Hospital strip Leukocyte NEG [facility] - esterase Good [Presence] in Taoist Urine by [facility] Automated test strip Leukocytes 0-5 [facility] - [Presence] in Good Urine sediment Taoist by Light [facility] microscopy Erythrocytes 0-2 [facility] - [#/area] in Good Urine sediment Taoist by [facility] Hospital high power field Epithelial cells 0-10 [facility] - [#/area] in Good Urine sediment Taoist by [facility] high power field Bacteria NONE [facility] - [Presence] in Good Urine sediment Taoist by Light [facility] microscopy Casts [Presence] NONE Abnormal (applies [facility] - in Urine to non-numeric Good sediment by results) [facility] HYALINE Crystals [Presence] in Urine sediment by NONE [facility] - [facility] Light microscopy ID Date Data Source [id number] 04/25/2019 11:46:54 AM EST [facility] 04/25/19 0745VitalsTemp (!) 101.4 F (3 8.6 C)Temp Source TemporalPulse (Heart Rate) 97Heart Rate Source MonitorResp Rate (!) 32Level of Consciousness Responds to VoiceBP 145/68MAP (Calculated) 94BP 1 Location L eft armBP 1 Method AutomaticBP Patient Position At restMEWS Score 6MD Mireya Gomez aware ,order received for blood n urine c/s and urine UA. Name Value Range Interpretation Code Description Data Harriett rce(s) Supporting Document(s ) ID Date Data Source [id number] 04/25/2019 11:29:38 AM [facility] Problem: Falls - Risk ofGoal: *Absence o f FallsDescriptionDocument Samra Fall Risk and appropriate interventions in the jhon wsheet.Outcome: Progressing Towards GoalNote: Fall Risk Interventions:Mentation Interv entions: Evaluate medications/consider consulting pharmacy, Dooropen when patie nt unattended, Adequate sleep, hydration, pain control, Morefrequent rounding, Brittnee m close to nurse's stationMedication Interventions: Patient to call before ge tting OOB, Evaluatemedications/consider consulting pharmacy, Teach patient to ar ise slowlyElimination Interventions: Patient to call for help with toileting needs,To ileting schedule/hourly roundsProblem: Patient Education: Go to Patient Educati on ActivityGoal: Patient/Family EducationOutcome: Progressing Towards Go alProblem: Pressure Injury - Risk ofGoal: *Prevention of pressure injuryDescriptio nDocument Butch Scale and appropriate interventions in the flowsheet.Outcome: Progressing Towards GoalNote: Pressure Injury Interventions:Sensory Interventions: Ass ess changes in LOC, Minimize linen layers, Floatheels, Turn and reposition approx. every two hours (pillows and wedges ifneeded)Moisture Interventions: Check f or incontinence Q2 hours and as needed, Applyprotective barrier, creams and emol lients, Absorbent underpads, Minimize layers,Moisture barrierActivity Interven tions: Pressure redistribution bed/mattress(bed type), Increasetime out of bedMobility Interventions: Pressure redistribution bed/mattress (bed type), HOB 30degrees or less, Float heelsNutrition Interventions: Discuss nutritional consu lt with provider, Documentfood/fluid/supplement intakeFric tion and Shear Interventions: HOB 30 degrees or less, Foamdressings/transparent film/ skin sealants, Apply protective barrier, creams andemollients, Minimize layersPro blem: Tissue Perfusion - Cardiopulmonary, AlteredGoal: *Optimize tissue perfusionO utcome: Progressing Towards GoalGoal: *Absence of hypoxiaOutcome: Progressing Towards GoalProblem: Impaired Skin Integrity/Pressure Injury TreatmentGoal: *Improvement of Existing Pressure InjuryOutcome: Progressing Towards GoalG oal: *Prevention of pressure injuryDescriptionDocument Butch Scale a nd appropriate interventions in the flowsheet.Outcome: Progressing Towards G oalNote: Pressure Injury Interventions:Sensory Interventions: Ass ess changes in LOC, Minimize linen layers, Floatheels, Turn and reposition approx. every two hours (pillows and wedges ifneeded)Moisture Interventions: Check f or incontinence Q2 hours and as needed, Applyprotective barrier, creams and emol lients, Absorbent underpads, Minimize layers,Moisture barrierActivity Interven tions: Pressure redistribution bed/mattress(bed type), Increasetime out of bedMobility Interventions: Pressure redistribution bed/mattress (bed type), HOB 30degrees or less, Float heelsNutrition Interventions: Discuss nutritional consu lt with provider, Documentfood/fluid/supplement intakeFric tion and Shear Interventions: HOB 30 degrees or less, Foamdressings/transparent film/ skin sealants, Apply protective barrier, creams andemollients, Minimize layersPro blem: Nutrition DeficitGoal: *Optimize nutritional statusDescriptionPt meeting 80% nutrient needs within 3-7 daysOutcome: Progressing Towards Goal Name Value Range Interpretation Code Description Data [facility] rce(s) Supporting Document(s ) ID Date Data Source [id number] 04/25/2019 07:25:51 AM [facility] Bedside shift change report given to Eda Clifton RN (oncoming nurse) by Popeye. Report included the following informatio n SBAR, Kardex, Intake/Output,MAR and Recent Results. Name Value Range Interpretation Code Description Data [facility] rce(s) Supporting Document(s ) ID Date Data Source [id number] 04/25/2019 07:12:39 AM [facility] Removed TLC from right upper arm. Tolera mikel well . No bleeding or infection onthe site. Name Value Range Interpretation Code Description Data [facility] Supporting Document(s ) ID Date Data Source [id number] 04/25/2019 07:15:35 AM [facility] Name Value Range Interpretation Description Data Sup porting Code Source(s) Document(s ) Vancomycin 32.0 10-20 Above upper panic [facility] - Goo d [Mass/volume] ug/mL limits Taoist in Serum or Hospital Plasma --trough CALLED TO AND READ BACK BYREVA JULIAN RN 04/25/19 715AM LUCIEN CROSS(NOTE)Trough levels of 15-20 ug/mL should be targeted for patients withcoagulase negative Staphylococcus and MRSA pneumonia, endoc arditis,osteomyelitis, meningitis, and bacteremia; as well as patients notrespo nding to lower levels. Trough levels of 10-15 ug/mL forinfections from other sources ( e.g. urinary tract, cellulitis) areappropriate. All patients receiving c oncomitant nephrotoxic therapiesshould have their function closely monitored regardl ess of peak ortrough levels. ID Date Data Source [id number] 04/25/2019 07:08:40 AM [facility] Name Value Range Interpretation Description Data Sup porting Code Source(s) Document(s ) Sodium 143 136-145 [facility] - Good [Moles/volume] mmol/L Taoist in Serum or Hospital Plasma Potassium 3.4 3.5-5.1 Below low normal [facility] - Good [Moles/volume] mmol/L Taoist in Serum or Hospital Plasma Chloride 107 98-107 [facility] - Good [Moles/volume] mmol/L [facility]ist in Serum or Hospital Plasma Carbon 34 21-32 Above high normal [facility] - Good dioxide, total mmol/L Taoist [Moles/volume] Hospital in Serum or Plasma Anion gap in 5 mmol/L 10-20 Below low normal [facility] - Go od Serum or [facility]ist Plasma Hospital Glucose 129 74-106 Above high normal [facility] - Good [Mass/volume] mg/dL [facility]ist in Serum or Hospital Plasma Urea nitrogen 28 mg/dL 7-18 Above high normal [facility] - Good [Mass/volume] Taoist in Serum or Hospital Plasma Creatinine 1.82 0.70-1.3 Above high normal [facility] - Goo d [Mass/volume] mg/dL 0 [facility]ist in Serum or Hospital Plasma Glomerular 48 >60 Below low normal [facility] - Good filtration ml/min/1 Taoist rate/1.73 sq M .73m2 Hospital predicted among blacks [Volume Rate/Area] in Serum or Plasma by Creatinine-bas ed formula (MDRD) Glomerular 40 >60 Below low normal [facility] - Good filtration ml/min/1 Taoist rate/1.73 sq M .73m2 Hospital predicted among non-blacks [Volume Rate/Area] in Serum or Plasma by Creatinine-bas ed formula (MDRD) Calcium 9.0 8.5-10.1 [facility] - Good [Mass/volume] mg/dL Taoist in Serum or Hospital Plasma Phosphate 2.6 2.5-4.9 [facility] - Good [Mass/volume] mg/dL Taoist in Serum or Hospital Plasma Albumin 1.5 g/dL 3.5-4.7 Below low normal [facility] - Good [Mass/volume] Taoist in Serum or Hospital Plasma by Bromocresol purple (BCP) dye binding method ID Date Data Source [id number] 04/24/2019 08:45:15 PM EST [facility] Problem: Falls - Risk ofGoal: *Absence o f FallsDescriptionDocument Samra Fall Risk and appropriate interventions in the [facility] wsheet.04/24/20192043 by Blayne Julian: Progressing Towards GoalNote: Fall Risk Interventions:Mentation Interventions: Bed/chair exit alarmMedication Intervent ions: Bed/chair exit alarmElimination Interventions: Bed/chair exit alarm2019 by Blayne Julian: Progressing Towards GoalNote: Fall Risk Intervention s:Mentation Interventions: Bed/chair exit alarmMedication Interventions: Bed/chair exit alarmElimination Interventions: Bed/chair exit alarmProblem: Patient Edu cation: Go to Patient Education ActivityGoal: Patient/Family Education04/24/20192043 b Blayne Mack: Progressing Towards Goal04/24/20192029 by Lucía Julian e: Progressing Towards GoalProblem: Pressure Injury - Risk ofGoal: *Prevention of pre ssure injuryDescriptionDocument Butch Scale and appropriate interventions in the jhon wsheet.04/24/20192043 by Blayne Julian: Progressing Towards GoalNote: Pressure I njury Interventions:Sensory Interventions: Assess changes in LOCMoisture Interventi ons: Absorbent underpadsActivity Interventions: Pressure redistribution b ed/mattress(bed type)Mobility Interventions: Pressure redistribution bed/mattress (be d type)Nutrition Interventions: Document food/fluid/supplement intakeFriction and Shear Interventions: Apply protective barrier, creams andemollients04/24/2019 2 030 by Blayne Julian: Progressing Towards GoalNote: Pressure Injury Interv entions:Sensory Interventions: Assess changes in LOCMoisture Interventions: Absorbent underpadsActivity Interventions: Pressure redistribution bed/mattress(bed type)Mob ility Interventions: Pressure redistribution bed/mattress (bed type)Nutrition Interve ntions: Document food/fluid/supplement intakeFriction and Shear Interventions: Apply protective barrier, creams andemollientsProblem: Patient Education: Go to Patient Education ActivityGoal: Patient/Family Education04/24/20192043 b y Blayne Julian: Progressing Towards Goal04/24/20192029 by Lucía Julian e: Progressing Towards GoalProblem: Tissue Perfusion - Cardiopulmonary, AlteredGoal : *Optimize tissue perfusion04/24/20192043 by Sissy Juliancome: Progressing Towards Goal04/24/20192029 by Sissy Juliancome: Progressing Towards GoalGoal: *Absence o f hypoxia04/24/20192043 by Sissy Juliancome: Progressing Towards Goal01/2020 by Sissy Juliancome: Progressing Towards GoalProblem: Tissue Perfusion - Cardiopulmonary, AlteredGoal: *Absence of hypoxia04/24/20192043 by Blayne Mcfarlane: Progressing Towards Goal04/24/20192029 by Lucía Julian e: Progressing Towards GoalProblem: Impaired Skin Integrity/Pressure Injury Treatment Goal: *Improvement of Existing Pressure Injury04/24/20192043 by Manolo Julian ome: Progressing Towards Goal04/24/20192029 by Blayne Julian: Progressing T[place] rds GoalGoal: *Prevention of pressure injuryDescriptionDocument Butch Scale a nd appropriate interventions in the flowsheet.04/24/20192043 by Reva Julian Outcome: Progressing Towards GoalNote: Pressure Injury Interventions:Sensory In terventions: Assess changes in LOCMoisture Interventions: Absorbent underpadsActivi ty Interventions: Pressure redistribution bed/mattress(bed type)Mobility Intervent ions: Pressure redistribution bed/mattress (bed type)Nutrition Interventions: Docum ent food/fluid/supplement intakeFriction and Shear Interventions: Apply protective ba rrier, creams andemollients04/24/20192029 by Blayne Julian: Progressing Towards GoalNote: Pressure Injury Interventions:Sensory Interventions: Ass ess changes in LOCMoisture Interventions: Absorbent underpadsActivity Intervention s: Pressure redistribution bed/mattress(bed type)Mobility Interventions: Pressure re distribution bed/mattress (bed type)Nutrition Interventions: Document food/fluid/suppl ement intakeFriction and Shear Interventions: Apply protective barrier, creams andemol lientsProblem: Impaired Skin Integrity/Pressure Injury TreatmentGoal: *Prevention of pressure injuryDescriptionDocument Butch Scale a nd appropriate interventions in the flowsheet.04/24/20192043 by Reva Julian Outcome: Progressing Towards GoalNote: Pressure Injury Interventions:Sensory In terventions: Assess changes in LOCMoisture Interventions: Absorbent underpadsActivi ty Interventions: Pressure redistribution bed/mattress(bed type)Mobility Intervent ions: Pressure redistribution bed/mattress (bed type)Nutrition Interventions: Docum ent food/fluid/supplement intakeFriction and Shear Interventions: Apply protective ba rrier, creams andemollients04/24/20192029 by Sissy Juliancome: Progressing Towards GoalNote: Pressure Injury Interventions:Sensory Interventions: Ass ess changes in LOCMoisture Interventions: Absorbent underpadsActivity Intervention s: Pressure redistribution bed/mattress(bed type)Mobility Interventions: Pressure re distribution bed/mattress (bed type)Nutrition Interventions: Document food/fluid/suppl ement intakeFriction and Shear Interventions: Apply protective barrier, creams andemol lientsProblem: Patient Education: Go to Patient Education ActivityGoal: Patient/ Family Education04/24/20192043 by Sissy Juliancome: Progressing Towards Goal01/2020 by Blayne Julian: Progressing Towards Goal Name Value Range Interpretation Code Description Data Harriett rce(s) Supporting Document(s ) ID Date Data Source [id number] 04/24/2019 08:31:23 PM [facility] Problem: Falls - Risk ofGoal: *Absence o f FallsDescriptionDocument Samra Fall Risk and appropriate interventions in the jhon wsheet.Outcome: Progressing Towards GoalNote: Fall Risk Interventions:Mentation Interv entions: Bed/chair exit alarmMedication Interventions: Bed/chair exit alarmElimi nation Interventions: Bed/chair exit alarmProblem: Patient Education: Go to P atient Education ActivityGoal: Patient/Family EducationOutcome: Progressing Towards Go alProblem: Pressure Injury - Risk ofGoal: *Prevention of pressure injuryDescriptio nDocument Butch Scale and appropriate interventions in the flowsheet.Outcome: Progressing Towards GoalNote: Pressure Injury Interventions:Sensory Interventions: Ass ess changes in LOCMoisture Interventions: Absorbent underpadsActivity Intervention s: Pressure redistribution bed/mattress(bed type)Mobility Interventions: Pressure re distribution bed/mattress (bed type)Nutrition Interventions: Document food/fluid/suppl ement intakeFriction and Shear Interventions: Apply protective barrier, creams andemol lientsProblem: Patient Education: Go to Patient Education ActivityGoal: Patient/ Family EducationOutcome: Progressing Towards GoalProblem: Tissue Perfusion - Cardiopu lmonary, AlteredGoal: *Optimize tissue perfusionOutcome: Progressing Towards Go alGoal: *Absence of hypoxiaOutcome: Progressing Towards GoalProblem: Tissue Perfusion - Cardiopulmonary, AlteredGoal: *Absence of hypoxiaOutcome: Progressing Towards GoalProblem: Impaired Skin Integrity/Pressure Injury TreatmentGoal: *Improvement of Existing Pressure InjuryOutcome: Progressing Towards GoalG oal: *Prevention of pressure injuryDescriptionDocument Butch Scale a nd appropriate interventions in the flowsheet.Outcome: Progressing Towards G oalNote: Pressure Injury Interventions:Sensory Interventions: Ass ess changes in LOCMoisture Interventions: Absorbent underpadsActivity Intervention s: Pressure redistribution bed/mattress(bed type)Mobility Interventions: Pressure re distribution bed/mattress (bed type)Nutrition Interventions: Document food/fluid/suppl ement intakeFriction and Shear Interventions: Apply protective barrier, creams andemol lientsProblem: Patient Education: Go to Patient Education ActivityGoal: Patient/ Family EducationOutcome: Progressing Towards Goal Name Value Range Interpretation Code Description Data Harriett rce(s) Supporting Document(s ) ID Date Data Source [id number] 04/24/2019 07:55:55 PM EST [facility] Progress NoteS[facility]Krystian Monae MD., F.C.C.P.Stella Hamilton MD., F.C.C.P. [address] [place] [id number] [place] [address] [phone]: Evelio Carlin Sex: male DOA: 04/19/2019Dat e of : 1950 Age: 68 y.o. LOS: LOS: 5 daysSubjective:PATIENT REMAINS IN RESPIRATORY DISTRESS EVEN ON BIPAP , HE IS NOT STABLEFOR SURGERY F OR J TUBE , DUE TO RESPIRATORY DISTRESS. RR = 28 EVEN ON BIPAP ..Patient is on B IPAP FOR RESPIRATORY DISTRESS , NON VERBAL . G I AND SURGERYNOTES NOTED , PROBAB LY PREP RATION FOR SURGICAL INTERVENTION FO J TUBEINSERTION.PATIENT WITH RESPI RATORY FAILURE STILL IN MODERATE RESP DISTRESS ON NASALCANNULACEREBRAL PALSY , BEDRIDDEN TODAY TARSFERRED WITH FECER AND MENTAL CHANGES .PATIENT IS FAMILIAR T O ME FROM PAST ADMISSIONS . HX DYSPHAGIA , COPD,SEIZURES , CEREBRAL PALSY .MENT QAL RETARDATION ,PARKINSONISM SCHIZOPHRENIA , , CHEST XRAY - ATELECTASIS L L L , WINE MASTER D , KYPHOSCOLIOSIS . PAST HCX PUL;MONARY EMBOLISM . We were asked to admit for w ork up and evaluation of the above problems. 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 No pertinent family history. No Known Allergies P rior to Admission medicationsMedication Sig Start Date End Date Taking? Authorizing ProviderlamoTRIgine (LAMICTAL) 25 mg rapid dissolve tablet TAKE 2 TABLETS BY MOUTH EVERY12 HOURS 03/18/19 Provider, Ediezinc oxide 20 % ointment Apply to affected area as needed for Skin Irritation.Provider, Edieomeprazol e (PRILOSEC) 2 mg/mL susp 2 mg/mL oral suspension (compounded) Take 20mL by sarah th daily. 04/06/19 Christos Lopez MDheparin sodium,porcine (HEPARIN, PORCI NE,) 5,000 unit/mL injection 1 mL bySubCUTAneous route every twelve (12) h ours every twelve (12) hours. 03/17/19 Mili Hills DOmultivitamin (MULTI-D ELYN, WELLESSE) liqd 5 mL by Per G Tube route daily.03/17/19 Mili Hills DOace taminophen (TYLENOL) 32MG/ML soln solution Take 20.3 mL by mouth every four(4) hour s as needed for Pain or Fever. 03/17/19 Mili Hills DOacetylcysteine (MUCOM YST) 100 mg/mL (10 %) nebulizer solution Take 4 mL byinhalation two (2) times a day. Provider, Historicalclorazepate (TRANXENE) 3.75 mg tablet 1 Tab by Per G Tube route nightly. MaxDaily Amount: 3.75 mg. 12/30/18 Mili Hills DOcinac alcet (SENSIPAR) 30 mg tablet Take 2 Tabs by mouth daily.Patient taking differently: 30 mg daily. Via G tube 12/30/18 Mili Hills DOalbuterol-ipratropium (DUO-NEB ) 2.5 mg-0.5 mg/3 ml nebu 3 mL by Nebulizationroute every six (6) hours. E very 6 hours while awakePatient taking differently: 3 mL by Nebulization route every four (4) hours asneeded. Every 6 hours while awake 12/30/18 Mili Hills DObudesonide (PULMICORT) 0.5 mg/2 mL nbsp 2 mL by Nebulization route two (2) timesa day. 12/30/18 Mili Hills DO REVIEW OF SYSTEMS: NON VERBAL , IN EVIDENT M ODERATE DISTRESSGeneral: negative for fever, chills, sweats, weaknessEyes: negative f or blurred vision, eye pain, loss of vision, diplopiaEar Nose and Throat: negative fo r rhinorrhea, pharyngitis, otalgia, tinnitus,speech or swallowing difficulti esRespiratory: negative for cough, sputum production, SOB, wheezing, DAVALOS,pleuritic painCardiology: negative for chest pain, palpitations, orthopnea, PND, edema,sync opeGastrointestinal: negative for abdominal pain, N/V, dysphagia, change in bowelhab its, bleedingGenitourinary: negative for frequency, urgency, dysuria, hematuria, incontinenceMuskuloskeletal : negative for arthralgia, myalgiaHematology: negative for easy bruising, bleeding, lymphadenopathyDermatological: negative for rash, ulceration, mole change, new lesionEndocrine: negative for hot flashe s or polydipsiaNeurological: negative for headache, dizziness, confusion, focal we akness,paresthesia, memory loss, gait disturbancePsychological: negative for a nxiety, depression, agitation Objective:Vital Signs:Patient Vitals for the past 24 hrs : BP Temp Pulse Resp SpO2 Sborcr56/10/20 1611 114/78 98 F (36.7 C) 83 20 94 % -04/24 1510 - - - - 99 % -04/24/19 1127 114/57 98.4 F (36.9 C) 70 20 100 % -04/24/19 0810 - - - - 99 % -04/24/19 0726 122/76 99.3 F (37.4 C) 86 20 97 % -04/24/19 0530 - - - - - 53.5 kg (118 lb)04/24/19 0432 145/84 100 F (37.8 C) (!) 105 20 98 % 58.2 kg (128 lb 3.2 oz)04/24/19 0250 - - - - 99 % -04/23/19 2350 137/74 100.2 F (37.9 C) (!) 104 20 98 % -04/23/19 2012 147/77 98 F (36.7 C) 100 18 99 % -Pulse OX:SpO2 Shilo dingeloisa from Last 6 Encounters:04/24/19 94%04/16/19 100%04/06/19 99%03/17/19 92% 02/19/19 96%02/18/19 92%@LASTSAO2(6)@Physical Exam:CONFUSED ON BIPAP ,TACHYPNEA R R = 28 T General: Alert, cooperative, no distress, appears stated age. Head: Normocephalic, without obvious abnormality, atraumatic. Eyes : Conjunctivae/corneas clear. PERRL, EOMs intact. Nose: Nares normal. No drainage or sinus tenderness Throat: Lips, mucosa, and tongue jazzmine l Neck: Supple, symmetrical, trachea midline, no adenopathy,thyroid: no enlargement/tenderness/nodules, no carotid bruit and no JVD. Elham ngs: INCREASED DIFFUSE WHEEZING AND RHONCHI +2 , , RALES +R L L AND L L L , AIR EXCHANGE IS DECREASED to auscultation bilaterally. Chest Wall: No tenderness or deformity. Heart: Regular rate and rhythm, S1, S2 normal , ES GR 2/ 6murmur, click, rub or NO gallop. Abdomen: Soft, non-tender. Bowel sounds normal. No masses, No organomegaly. Extremities: Extremities normal, atraumatic, no cyanosis or edema. Pulses: 4+ bilaterally. Skin: Skin color, texture, turgor normal. No rashes or lesions. Neurologi c: CNII-XII intact. No focal motor or sensory deficit.Intake and Output:Last t hree shifts: 04/23 07 - 04/24 1900In: -Out: 850 [Urine:850]Lab Results:Recent Results (from the past 24 hour(s))PTH INTACT Collection Time: 04/24/19 6:30 AMResult Value Ref Range PTH, Intact 81.1 (H) 20.0 - 80.0 pg/mLRENAL FUNCTION PANEL Collectio n Time: 04/24/19 6:35 AMResult Value Ref Range Sodium 141 136 - 145 mmol/L Potass ium 3.3 (L) 3.5 - 5.1 mmol/L Chloride 105 98 - 107 mmol/L CO2 31 21 - 32 mmol/L Anion gap 8 (L) 10 - 20 mmol/L Glucose 118 (H) 74 - 106 mg/dL BUN 22 (H) 7 - 18 mg/dL Crea tinine 1.62 (H) 0.70 - 1.30 mg/dL GFR est AA 55 (L) >60 ml/min/1.73m2 GFR est non-AA 45 (L) >60 ml/min/1.73m2 Calcium 9.2 8.5 - 10.1 mg/dL Phosphorus 1.8 (L) 2.5 - 4.9 mg/dL Albumin 1.6 (L) 3.5 - 4.7 g/dLCK Collection Time: 04/24/19 6:35 AMResult Value Ref Range CK 33 (L) 39 - 308 U/LURIC ACID Collection Time: 04/24/19 6:35 AMR esult Value Ref Range Uric acid 4.0 3.5 - 7.2 mg/dLABG:No results for input(s): PH, PC O2, PO2, HCO3, FIO2 in the last 72 hours.Recent Glucose Results:Lab Results Component Value Date/Time GLU 118 (H) 04/24/2019 06:35 AM@LABAPCYTOINTERPRETAT ION@CULTURESAll Micro Results Procedure Component Value Units Date/Time CULTURE, BLOOD [[id number]] Collected: 04/20/19 1447 Order Status: Completed Specimen: Bloo d Updated: 04/24/1932 Special Requests: NO SPECIAL REQUESTS Culture result: NO GROWTH 4 DAYS CULTURE, BLOOD [[id number]] Collected: 04/20/19 1440 Order Status: Completed Specimen: Blood Updated: 04/24/19 0632 Special Requests: NO SPEC IAL REQUESTS Culture result: NO GROWTH 4 DAYS CULTURE, BLOOD [[id number]] (Abnorm al) Collected: 04/19/19 1005 Order Status: Completed Specimen: Blood Updated: 12/02 0731 Special Requests: NO SPECIAL REQUESTS GRAM STAIN GRAM POSITIVE COCC I IN CLUSTERS ANAEROBIC BOTTLE CALLED TO AND READ BACK BY ROB LEDEZMA RN, ED, 0953 ON 04/20/19 TORISMIRAGLIA Culture result: STAPHYLOCOCCUS EPIDERMIDIS : Refer to p revious culture(s) for susceptibilityresults CULTURE, BLOOD [[id number]] (Abnormal) (Susceptibility) Collected: Order Status: Completed Specimen: Bloo d Updated: 04/22/19 0729 Special Requests: NO SPECIAL REQUESTS GRAM STAIN GRAM PO SITIVE COCCI IN CLUSTERS ANAEROBIC BOTTLE CALLED TO AND READ BACK BY ROB KNOX RN, ED, AT 0953 ON 04/20/19 TORISMIRAGLIA Culture result: STAPHYLO COCCUS EPIDERMIDISImages:@[email or web address] Abd ([facility])Result Date: 04/05/2019XR ABD (MARCELINO) CLINICAL INDICATION PROVIDED:. "assess J tube position."TECHNIQUE.: An initial AP image of the abdomen was acquired. Additional APimages of the abdomen were acquired after the hand-injection of a small volumeof radiopaque contrast by the siri ent's nurse into the patient's J-tube.COMPARISON:. 04/02/2019. FINDINGS :. The tip of the 2 projects over the midabdomen, at the level of the mid jeju num. Post injection images demonstrateopacification of loops of mid small bowel. There is no extraluminal contrastappreciated. A large volume of s tool projects over the distal colon/rectum.Densities project over the lower lungs, right greater than left. Considercorrelation with chest radiograp hs.IMPRESSION:. Injected radiopaque contrast appears to be contained within thelumen of the mid small bowel. There is no evidence of extraluminal contrast.Additional find ings and recommendations as above.Xr Abd (kub)Result Date: 04/02/2019KUB 2 view(s ) History: Evaluate J-tube. Comparison: 11/22/2018. There is a newJ-tube overlyin g the mid abdomen with kinking involving its superior andinferior portion overlying t he mid abdomen. These findings were discussed withmale nurse Jacquelyn at 3:40 PM today.. Th ere is mild ileus of the small bowel butthere is no evidence of obstruction, radiopaqu e gallstones, or left kidneystones or an appendicolith. There are possible right kidney stones. Absence ofan appendicolith it does not exclude appendicitis. CT is sug gested if clinicallyindicated. Old rib fractures are noted.IMPRESSION: Kinking of J-tube in 2 locations. Possible right kidney stonesIleus.Ir Picc Insert Wo Por t Over 5 Years Wo ImgResult Date: 04/01/2019IR PICC INSERT WO PORT OVER 5 YEARS WO IMG CLINICAL INDICATION PROVIDED.:"midline." Medical necessity f or vascular access. PROCEDURE: After beinginformed of the risks, benefits, po tential alternatives to the procedure theinformed consent was obtained. The pa tient was placed on the table the supineposition. The right upper extremit y was prepped and draped in the normal sterilefashion. Ultrasound interrogation was performed of the right upper extremity.Images were obtained. A locat ion was chosen over the right brachial vein abovethe antecubital fossa. Lidocaine so lution was used to anesthetize the scan.Access was gained under ultrasound guidance using a 21-gauge thin-walled needle.A 0.018 a wire was advanced under fluoroscopic guidance into the right axillaryvein. The needle was exchanged o lain a wire for the midline dilator and sheath.The dilator and wire were removed leaving the sheath in situ. Through the sheatha 5 Congolese double-lumen 20 cm midl ine catheter was placed. The peel-away sheathwas removed. The catheter was sewn into position using 2-0 silk sutures. Thepatient tolerated the procedure. Ther e were no complications at the time of theprocedure. FINDINGS: Ultrasound inter rogation revealed a widely patent brachialvein above the antecubital fossa . A 5 Congolese dual-lumen 20 cm midline catheterwas placed. The tip was placed i n good position over the right axillary vein.IMPRESSION: 5 Congolese dual-lumen mid line catheter placed with tip positioned overthe right axillary vein.Ct Chest Abd Pelv Wo ContResult Date: 04/20/2019Referring Physician: MILI HILLS Patient Name: EVELIO CARLIN FINAL REPORTFROM [facility] EXAM: CT chest without contrast and CT abdomen pelviswithout contrast DATE OF EXAM: 2019-04-20 20:52:12 IMAGES: 681 HI STORY: reducedbreath sounds right lung, LLQ tenderness Comparison: 03/14/19 and FINDINGS: Axial images of the chest, abdomen and pelvis are obtained without ivcontrast. Chest: Mediastinal assessment is limited without contrast. Imagequality l imited by artifacts. Patchy lung opacities right greater than leftsimilar to prior. Small pleural effusions. Vascular including coronarycalcifications. Mediastinum appe ars shifted to the right. Left hemidiaphragm iselevated. Abdomen and pelvis: Nonspeci fic bowel pattern, with post surgicalchanges on the left. No definite free air. Organ assessment limited without ivcontrast. No significant free fluid or free air. No b owel obstruction or abscessseen. Catheter and air in the bladder which is not well ass essed. Left hiphardware partially seen with old fracture deformity. G-J tube is pres ent.Ventral hernia right of midline at abdominal wall with multiple small bowel loops without obstructive pattern. Mild right muscle swelling with possiblehematoma an d calcification at right groin image 117/120. Degenerative bonychanges. Multiple likel y chronic compression deformities at thoracic and lumbarspine. Bilateral L5-S1 spondyl olysis and anterolisthesis.IMPRESSION: Right greater than left lung infiltrates and e ffusions. No bowelobstruction. 2 cm hyperdensity at a bowel loop in left pel vis image 90/120,possibly ingested material, or a tube fragment or post surgical charles ge. Ventralabdominal hernia seen. See above. One or more of the following dose reduct iontechniques were used: automated exposure control, adjustment of the mA and/or kVa ccording to patient size, use of iterative reconstructive technique. THISDOCUMENT H BEEN ELECTRONICALLY SIGNED Marcie Edge MD 04/20/2019 22:43 GINA VerdePlease call Katja berger Wireless Consultant [phone] with questions. This reportwas electronically signed by: Marcie Edge MD 04/20/2019 10:44 PMUs Retroperitoneum CompResult Date: 04/23/2019Retroperitoneal sonogram clinical indication acute kidney insufficiency S tudyis limited secondary to position of the patient and the patient'sinability t o cooperate. The abdominal aorta and inferior vena cava are obscured.The right kidney measures 9.2 cm. There is no evidence of hydronephrosis. Theleft kidney measures 9.5 cm. There is no evidence of hydronephrosis. Foleycatheter is seen wi thin the bladder.IMPRESSION: 1. Limited study. 2. No evidence of hydronephrosisX r Chest PortResult Date: 04/23/2019XR CHEST PORT CLINICAL INDICATION PROVIDED:. "Lani ification of PICC lineplacement." TECHNIQUE.: 2 AP views, chest. COMPARISON:. 04/19/2019 . FINDINGS:. Thetip of the vascular catheter projects over the right axilla, likely a midlinecatheter placed on 04/01/2019. The pericardial/cardiac silhouette is enlarg ed inthe transverse dimension. There is mild pulmonary vascular congestion andinterst itial edema. There is suggestion of small bilateral pleural effusions.Density in t he lung bases may represent adjacent atelectasis or superimposedlower lung in filtrates. Follow-up radiographs are recommended.IMPRESSION:. 1. Midline cat heter projecting over the right axilla. 2. Mildcongestive failure with interstitial edema and small bilateral pleuraleffusions.Xr Chest PortResult Pan e: 04/19/2019History: Respiratory difficulty. FINDINGS: A frontal portable view of the chestis submitted for interpretation and is compared to the prior study of04/06/2019 . EKG leads overlie the chest. A right-sided midline catheter is notedin situ. The ca rdiac silhouette measures at the upper limits of normal. There ispatchy opacity noted at the lung bases, left greater than right, which may beinfiltrative or atelectatic in nature. A small left pleural effusion is noted.Mediastinal and hilar structures a re unremarkable.IMPRESSION: Basilar infiltrative change left greater than ri ght. Small leftpleural effusion.Xr Chest PortResult Date: 04/06/2019CHEST one vie w HISTORY: Pneumonia. COMPARISON: 03/25/2019. There is a poorinspiratory effort which compromises this interpretation. A repeat study issuggested. There is discoid atel ectasis and/or subsegmental left lower lobeatelectasis along the left hemidiaph ragm. .There is no gross evidence ofcongestion, effusions or pneumothorax. IMPRESSION: Possible left lower lobe atelectasis. Poor inspiratory effort.Dup krissy Upper Ext Venous LeftResult Date: 04/23/2019DUPLEX UPPER EXTREMITY-VENOUS LE FT HISTORY: Swelling left upperextremity-evaluate for DVT PRIOR: Mireya valdovinos: Most recent February 10, 2019: "Noevidence of deep vein thrombosis." TE CHNICAL FACTORS: High resolution lineargrayscale, color-flow and Doppler evaluation of the left upper extremity wasperformed from the neck to the antecu bital fossa. FINDINGS: Normal antegradeflow, compressibility of the deep venous vascu lature, except for the internaljugular and subclavian veins due to their positions/ anatomic location, as wellas augmentation of flow/phasicity is identified within the visualized portionsof the deep venous system. No filling defects are identified that w ould besuspicious for, or lead customer service representative of DVT.IMPRESSION: 1. No sonographic findin gs suggestive of thrombosis within thevisualized portions of the deep venou s system of the left upper extremity.Medications:Current Facility-A dministered MedicationsMedication Dose Route Frequency albuterol-ipratropium (DUO-NE B) 2.5 MG-0.5 MG/3 ML 3 mL Nebulization Q6HWA RT acetylcysteine (MUCOMYST) 100 mg/mL (10 %) nebulizer solution 400 mg 4 mLInhalation TID RT miconazole (MICOTIN ) 2 % cream Topical BID acetaminophen (TYLENOL) tablet 650 mg 650 mg Oral Q4H PRN sodium chloride (NS) flush 5-10 mL 5-10 mL IntraVENous PRN budesonide (PUL MICORT) 500 mcg/2 ml nebulizer suspension 500 mcg NebulizationBID RT pantoprazole (PROTONIX) 40 mg in 0.9% sodium chloride 10 mL injection 40 mgIntraVENous DAILY ci nacalcet (SENSIPAR) tablet 60 mg 60 mg Oral DAILY ALPRAZolam (XANAX) tablet 0.5 mg 0.5 mg Per G Tube QHS heparin (porcine) injection 5,000 Units 5,000 Units SubCU TAneous Q12H lamoTRIgine (LaMICtal) tablet 50 mg 50 mg Per G Tube Q12H dextrose 5 % - 0.45% NaCl infusion 70 mL/hr IntraVENous CONTINUOUS piperacillin-cuba obactam (ZOSYN) 3.375 g in 0.9% sodium chloride (MBP/ADV) 100mL MBP 3.375 g In traVENous [id number] Problems: Pneumonia (11/08/2018) Acute hypoxemic respiratory failure (HCC) (03/25/2019) COPD with acute exacerbation (HCC) (04/19/2019) Acute on chronic respiratory failure with hypoxia and hypercapnia (HCC)(04/19/2019) Scrotal torsten h (04/21/2019)Assessment:1 ACUTE HYPERCAPNIC AND HYPOXIC RESPIRATORY FA ILURE DUE TO SEVERECOPD / PNEUMONIA1. ATELECTASIS L L L2. SEVERE COPD 3. M ENTAL RETARDATION4. PNEUMONIA 5. SEPSIS L A = 2.56. METABOLIC ENCEPHALOPATHY7. H X P. E 8. 9 AC RESP DISTRESS9. BACTEREMIA G + COCCI 10. FLUID OVER LOAD11. POSSI BLE 2 CM SEGMENT OF TUBE IN ILEUM EPR RADIOLOGY ON CATSCAN REPORT Plan: 1. CONT BIPAP SUPPORT IPAP = 14 CM , EPAP= 7 CM ,RATE = 20 . MT FIO2 = 70 %2 . DUO NEB Q 4 H3. MUCOMYST 10 % VIA MINI NEB Q 8 H4. IV ZOSYN AND VANCOMYCIN 5. CONT BIPAP SUPPORT AT NIGHT , DISCUSSED WITH STAFF , ORDERS FORBIOPAP GIVEN 6. LASIX 20 MG I V P NOW7. DISCUSSED WITH RN ON BED SIDE8. PATIENT IS NOT CLEARED F OR SURGERY DUE TO RESPIRATORY DISTRESS Krystian Monae MD F.C.C.P.April 24 07:47 PM Name Value Range Interpretation Code Description Data Harriett rce(s) Supporting Document(s ) ID Date Data Source [id number] 04/24/2019 07:52:01 PM [facility] Bedside and Verbal shift change report carol Ardon RN (oncoming nurse) by Jesse PITTS (offgoing nurse). Report included the following information SBAR,Kardex, MAR, Recent Results and Cardiac Rhythm. Name Value Range Interpretation Code Description Data Harriett rce(s) Supporting Document(s ) ID Date Data Source [id number] 04/24/2019 10:28:43 PM [facility] Name Value Range Interpretation Description Data Sup porting Code Source(s) Document(s ) Eosinophils NONE Abnormal (applies [facility] - Go od [#/area] in to non-numeric Taoist Urine sediment results) Hospital by Microscopy high power field ID Date Data Source [id number] 04/24/2019 09:25:37 PM [facility] Name Value Range Interpretation Description Data Sup porting Code Source(s) Document(s ) Sodium 76 MMOL/L 40-220 [facility] Good [Moles/volu Taoist me] in Hospital Urine ID Date Data Source [id number] 04/24/2019 06:06:11 PM [facility] GI PROGRESS NOTENAME: Evelio Johnson inDOB: 1950MRN: [id number]:Unresponsive on bipapT olerating TFs at 50 ml/hrObjective:VITALS:Last 24hrs VS revi ewed since prior progress note. Most recent are:Visit VitalsBP 114/78 (BP 1 Location : Left arm, BP Patient Position: At rest)Pulse 83Temp 98 F (36.7 C)Resp 20 Ht 5' 2" (1.575 m)Wt 53.5 kg (118 lb)SpO2 94%BMI 21.58 kg/m Intake/Output Summary (Last 24 hours) at 04/24/2019 1804Last data filed at 04/24/2019 0058Gross per 24 hour Intake -Output 850 mlNet -850 mlPHYSICAL EXAM:General: unresponsive, in no acute distressHEENT: Anicteric sclerae.Abdomen: Soft, Non distended, Non tender.Lab Data Reviewed:No results for input(s): WBC, HGB, HCT, PLT, HGBEXT, HCTEXT, PLTEXT in the last72 hours.Recent Labs 04/23/200619NA 141 141K 3.3* 3.1*CL 105 105CO2 31 31BUN 22* 17CREA 1.62* 1.36*GLU 118* 140*PHOS 1.8* --CA 9.2 8.9Recent L abs 04/24/200535ALB 1.6* Pati ent Active Problem ListDiagnosis Code Parae sophageal hiatal hernia K44.9 COPD (chronic obstructive pulmonary disease) ([facility]) J44 .9 Acute respiratory distress R06.03 Pneumonia J18.9 COPD exacerbation ([facility]) J44.1 Sepsis due to undetermined organism ([facility]) A41.9 Generalized anxiety disorde r F41.1 Acute respiratory failure with hypoxia ([facility]) J96.01 Pneumonia involvin g right lung J18.9 Hyponatremia E87.1 SOB (shortness of breath) R06.02 Pressure i njury of right heel, stage [address]) L89.612 Leg wound, right, initial encounter S81. 801A Acute hypoxemic respiratory failure ([facility]) J96.01 COPD with acute exacerbati on ([facility]) J44.1 Acute on chronic respiratory failure with hypoxia and hypercapnia ([facility])J96.21, J96.22 Scrotal rash Q01Upecbdaaap: J via PEG working well currently, but h as been having recurrent issues Surgery for J tube placement is on hold due to poor respiratory functionPlan: Will continue to monitor Surgical f/u if improvesSigned By: Marly Amaya MD 04/24/2019 6:04 PM Name Value Range Interpretation Code Description Data Harriett rce(s) Supporting Document(s ) ID Date Data Source [id number] 04/24/2019 02:26:26 PM [facility] Patient is being seen for placement of j ejunostomy, as he has been havingrecurrent aspirations with gastric feedingNow siri ent is on BiPAP.He is being worked up for seizure disorderKidney function is well is deteriorating and has been seen by nephrologistConsidering all his current clinical issues and his previous medicalcomorbidities and poor functional capacity , patient is very high risk candidatefrom surgery at this timeHe is tolerating tube feeds at this point at 50 cc/hour With no residual.PlanContinue c urrent feeds with G-tube at 50 cc an hourOptimize him from medical standpoint To consider surgery only after he is more stable Name Value Range Interpretation Code Description Data Harriett rce(s) Supporting Document(s ) ID Date Data Source [id number] 04/24/2019 02:12:59 PM [facility] Problem: Nutrition DeficitGoal: *Optimiz e nutritional statusDescriptionPt meeting 80% nutrient needs within 3-7 daysOutcome: P rogressing Towards GoalContinue to suggest Osmolite 1.5 at goal rate of 55 mL/hr (1 980 kcal, 83 gm pro,269 gm CHO, 65 gm fat, 1006 mL water) and 100 mL free water flu sh q 3 hr if noIVFIf pt continues receiving EN via PEG, consider addition of Reglan given pt's hxof recurrent aspiration Name Value Range Interpretation Code Description Data [facility] rce(s) Supporting Document(s ) ID Date Data Source [id number] 04/24/2019 02:11:28 PM [facility] NUTRITIONFollow Up NoteSubjective: Pt to lerating EN at goal rate per order; receiving feeds throughside port (PEG) as main por t not functioning.Nutrition Rx: Osmolite 1.5 at 50 mL/hr, ProStat BIDLabs: K+ 3.3 Glu 118 BUN 22 Creat 1.62 GFR 45Medications reviewed. Potassium replaced.Skin: Wound to scrotum (per flowsheet); consult placed to wound careBraden score 102+ pitting L UE, 3+ pitting LLE, RLE edemaGI: Dysfunctional J-tube over PEG despite mu ltiple attempts to remedy thesituation; Surgery consult was obtained for possibl e feeding jejunostomy tubeplacement to prevent aspiration.Weight: 57.5 kg (down 4 kg since initial assessment; multiple wt fluctuationsnoted, net (-) I/O 3950 mL)N utrition Diagnosis: remains the same (Increased protein and energy needs)Cont inue to suggest Osmolite 1.5 at goal rate of 55 mL/hr (1980 kcal, 83 gm pro,269 gm CH O, 65 gm fat, 1006 mL water) and 100 mL free water flush q 3 hr if noIVFIf pt continu es receiving EN via PEG, consider addition of Reglan given pt's hxof recurrent aspirat ionWill continue to monitor EN, Skin integrity and GI status.Discharge Planni ng: Pending clinical courseCandy Correa RD Name Value Range Interpretation Code Description Data Harriett rce(s) Supporting Document(s ) ID Date Data Source [id number] 04/24/2019 01:08:31 PM EST [facility] ID Progress Note04/24/2019Subjective:Leth argic non verbal on BiPAPLow grade fever.Blood cultures positive for staph epidermidisRepeat blood cultures no growth.High vancomycin trough level.Wors ening renal function.Objective:Review of SystemsPatient is unable to provideVital s:Patient Vitals for the past 24 hrs: BP Temp Pulse Resp SpO2 Ylmlag20/10/20 1127 114/ 57 98.4 F (36.9 C) 70 20 100 % -04/24/19 0810 - - - - 99 % -04/24/19 0726 122/76 99.3 F (37.4 C) 86 20 97 % -04/24/19 0530 - - - - - 53.5 kg (118 lb)04/24/19 0432 14 5/84 100 F (37.8 C) (!) 105 20 98 % 58.2 kg (128 lb 3.2 oz)04/24/19 0250 - - - - 99 % -04/23/19 2350 137/74 100.2 F (37.9 C) (!) 104 20 98 % -04/23/19 2012 147/77 98 F (36.7 C) 100 18 99 % -04/23/19 1612 - - - - 98 % -04/23/19 1605 148/82 99.7 F ( 37.6 C) 83 24 98 % -04/23/19 1327 - - - - 98 % -Tmax: Temp (24hrs), Av.3 F (37. 4 C), Min:98 F (36.7 C), Max:100.2 F(37.9 C)Physical Exam:General: Lethargic on BiPAP,no distressEyes: Conjunctivae/corneas clear. PERRLNeck: Supple, symmetrical, t rachea midline, no adenopathyLungs: bilateral breath sounds with basal crack les..Heart: Regular rate and rhythm, S1, S2 normal, no murmurAbdomen: Soft, non-te nder. Bowel sounds normal. No masses, Noorganomegaly.peg+Back: Symmetric, no curvature. ROM normal. No CVA tenderness.Extremities: No cyanosis ,chr onic lymphedema .Pulses: 2+ and symmetric all extremities.Skin: Skin color, texture, t urgor normal. No rashes or lesionsLymph nodes: Cervical, supraclavicular, and ax illary nodes normal.Current Facility-Administered MedicationsMedicat ion Dose Route Frequency potassium phosphate 15 mmol in 0.9% sodium chloride 250 mL i nfusionIntraVENous ONCE albuterol-ipratropium (DUO-NEB) 2.5 MG-0 .5 MG/3 ML 3 mL Nebulization Q6HWA RT acetylcysteine (MUCOMYST) 100 mg/mL (10 %) nebulizer solution 400 mg 4 mLInhalation TID RT miconazole (MICOTIN) 2 % cream Topical BID acetaminophen (TYLENOL) tablet 650 mg 650 mg Oral Q4H PRN sodium chlo ride (NS) flush 5-10 mL 5-10 mL IntraVENous PRN budesonide (PULMICORT) 500 mcg/2 ml nebulizer suspension 500 mcg NebulizationBID RT pantoprazole (PROTON IX) 40 mg in 0.9% sodium chloride 10 mL injection 40 mgIntraVENous DAILY cinac alcet (SENSIPAR) tablet 60 mg 60 mg Oral DAILY ALPRAZolam (XANAX) tablet 0.5 mg 0.5 mg Per G Tube QHS heparin (porcine) injection 5,000 Units 5,000 Units SubCU TAneous Q12H lamoTRIgine (LaMICtal) tablet 50 mg 50 mg Per G Tube Q12H dextrose 5 % - 0.45% NaCl infusion 70 mL/hr IntraVENous CONTINUOUS piperacillin-cuba obactam (ZOSYN) 3.375 g in 0.9% sodium chloride (MBP/ADV) 100mL MBP 3.375 g In traVENous F6VUmha:Recent Labs 04/24/200535 04/23/200619BUN 22* 17CREA 1.62* 1.36*Cu ltures:Lab ResultsComponent Value Date/Time Culture result: NO GROWTH 4 DAYS 020 02:47 PM Culture result: NO GROWTH 4 DAYS 04/20/2019 02:40 PM Culture result: STAP HYLOCOCCUS EPIDERMIDIS (A) 04/19/2019 10:15 AMRadiology:Xr Chest PortResult Date: 04/23/2019XR CHEST PORT CLINICAL INDICATION PROVIDED:. "Verification of PICC linepla cement." TECHNIQUE.: 2 AP views, chest. COMPARISON:. 04/19/2019. FINDINGS:. Thetip of the vascular catheter projects over the right axilla, likely a midlinecatheter p laced on 04/01/2019. The pericardial/cardiac silhouette is enlarged inthe transverse dimension. There is mild pulmonary vascular congestion andinterstitial edema. There is suggestion of small bilateral pleural effusions.Density in the lung bases may represent adjacent atelectasis or superimposedlower lung infiltrates. Foll ow-up radiographs are recommended.IMPRESSION:. 1. Midline cat heter projecting over the right axilla. 2. Mildcongestive failure with interstitial edema and small bilateral pleuraleffusions.Assessment: Staph seps is. Aspiration pneumonia. Acute COPD exacerbation. Acute respiratory failure . Pleural effusion. Dysphagia . Plan:1. Discontinue Iv vancomycin2. Continue IV zosyn.3. Vancomycin trough level in am4. Follow Barrera Dudley MDJanuary 201912:58 PM Name Value Range Interpretation Code Description Data Harriett rce(s) Supporting Document(s ) ID Date Data Source [id number] 04/24/2019 01:05:49 PM EST [facility] Problem: Falls - Risk ofGoal: *Absence o f FallsDescriptionDocument Samra Fall Risk and appropriate interventions in the jhon wsheet.Outcome: Progressing Towards GoalNote: Fall Risk Interventions:Mentation Interv entions: Bed/chair exit alarmMedication Interventions: Bed/chair exit alarmElimi nation Interventions: Bed/chair exit alarmProblem: Pressure Injury - Risk ofG oal: *Prevention of pressure injuryDescriptionDocument Butch Scale a nd appropriate interventions in the flowsheet.Outcome: Progressing Towards G oalNote: Pressure Injury Interventions:Sensory Interventions: Ass ess changes in LOCMoisture Interventions: Absorbent underpadsActivity Intervention s: Pressure redistribution bed/mattress(bed type)Mobility Interventions: Pressure re distribution bed/mattress (bed type)Nutrition Interventions: Document food/fluid/suppl ement intakeFriction and Shear Interventions: Apply protective barrier, creams andemol lientsProblem: Tissue Perfusion - Cardiopulmonary, AlteredGoal: *Optimize tissue perfusionOutcome: Progressing Towards GoalGoal: *Absence of hypoxiaOutcome: Pr ogressing Towards GoalProblem: Impaired Skin Integrity/Pressure Injury TreatmentGoal: *Improvement of Existing Pressure InjuryOutcome: Progressing Towards GoalG oal: *Prevention of pressure injuryDescriptionDocument Butch Scale a nd appropriate interventions in the flowsheet.Outcome: Progressing Towards G oalNote: Pressure Injury Interventions:Sensory Interventions: Ass ess changes in LOCMoisture Interventions: Absorbent underpadsActivity Intervention s: Pressure redistribution bed/mattress(bed type)Mobility Interventions: Pressure re distribution bed/mattress (bed type)Nutrition Interventions: Document food/fluid/suppl ement intakeFriction and Shear Interventions: Apply protective barrier, creams andemol lientsProblem: Nutrition DeficitGoal: *Optimize nutritional statusDescriptionP t meeting 80% nutrient needs within 3-7 daysOutcome: Progressing Towards Goal Name Value Range Interpretation Code Description Data Harriett rce(s) Supporting Document(s ) ID Date Data Source [id number] 04/24/2019 10:59:31 AM EST [facility] RENAL Progress NotePatient: Evelio Shukla hbein Sex: male DOA: 04/19/2019Date of : 1950 A ge: 68 y.o. :[id number]:Reyse Carlin is 68 y.o. male who was transferred by EMS from [facility] withfever,h ypoxia, O2 SAT 83 % , hypotensive and tachypnea. Pt was unresponsive. Hewas p laced on BIPAP. Pt was seen and examined at bedside today, he is wearing BIPAP. His eyes areclosed upon chest rubs and he attempts to close tighter during my lift ing uphis upper lids. He is tremulous, mostly upper extremities, right greater thanleft.He is occas moving his right arm. No prior tremors, certainly not to thise xtent.He has positive blood cultures with GPC in clusters Anaerobic bottle. RN reporti ng 500 cc in bladder with straight cath this morning.Bladder scan showing 200+ cc uri ne in bladder He has medical history of Dysphagia, recurrent aspiration pneumoni a, s/p g/tplacement 11/17/18 and conversion to jtube on 02/07/19,hyperlipidemia, hyperp arathyroid, unspecified,seizure, large hiatal hernia,anxiety disorder, personal histor y of pulmonary embolus,COPD, GERD,Schizophrenia unspecified, Kyphosis , Parkinson disease, Severe intellectualdisabilities, Contractures a nd Generalized muscle weakness. He had positioningof jejeunal feeding tube and endoclipping on 03/26/19. There was leaking of theTF, the tube was found with a crac k defect.On 04/01/19 he had endoscopic placemetn of jtube over PEG and removal ofdefective tube. Kinking of the jtube was found on KUB with a large volume ofstool within the distal colon/rectum. Pt was tolerating TF via the peg port andwas di scharged to snf and outpatient follow up.On 04/16/2019 pt had ambulatory procedure w ith gi. Per GI, multiple unsuccessfulattempts to place PEJ. 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 Pupils are equalThroat: Lips, mucosa, and tongue normal. No ThrushNeck: Supple, symmetrical, no adenopathy, no carotid bruit and no JVD.Lungs: Clear to auscultation bilaterally. No Wheezing o r Rhonchi. No rales.Chest wall: No Accessory muscle use.Heart: Regular ra te and rhythm, no murmur, or rub.Abdomen: Positive peg, soft,non-tender. Not diste nded. Bowel sounds normal.No massesExtremities: Extremities normal, a traumatic, No cyanosis. Edema LUE.and traceankle edema. No clubbingSkin: W arm and dry. No rashes or lesions. Not JaundicedLymph nodes: Cervical, supracla vicular normal.Psych: Not anxious or agitated.Neurologic: EOMs intact. No fac ial asymmetry. Lethargic, nonverbalIntake and Output:Current Shift: 850 mlLab/Data Re viewed:Recent Days:No results for input(s): WBC, HGB, HCT, PLT, HGBEXT, HCTEXT, PLTE XT, HGBEXT,HCTEXT, PLTEXT in the last 72 hours.Recent Labs 04/24/200535 04/23/19 0719NA 141 141K 3.3* 3.1*CL 105 105CO2 31 31GLU 118* 140*BUN 22* 17CREA 1.62* 1.36 *CA 9.2 8.9PHOS 1.8* --ALB 1.6* --No results for input(s): PH, PCO2, PO2, HCO 3, FIO2 in the last 72 hours.CULTURE, BLOOD [QNC1200] (Order [id number])MicrobiologyD ate: 04/19/2019 Department: [facility] Med Surg Released By/Authorizing: Neeta Coleman N P (auto-released)Specimen Information: Blood Component Value Flag Ref Range Units Sta tusSpecial Requests: FinalNO SPECIAL REQUESTSGRAM STAIN FinalGRAM POSITI VE COCCI IN CLUSTERS ANAEROBIC BOTTLEGRAM STAIN FinalCALLED TO AND READ BACK BY ROB LEDEZMA RN, ED, AT 0953 ON 04/20/19 TORISMIRAGLIACulture result: Abno rmal FinalSTAPHYLOCOCCUS EPIDERMIDISSusceptibilityStaphylococcus epidermidisAntibiotic Interpretation Value Method CommentClindamycin ($) Resistant <=0.25 ug/mL MICErythromycin ($$$$) Resistant >=8 ug/mL MICGentamicin ($) Susceptible <=0.5 ug/mL MICOxacillin Resistant >=4 ug/mL MICPenicillin G ($$) Resistant >=0.5 ug/ mL MICVancomycin ($) Susceptible 2 ug/mL MICTetracycline Resistant >=16 ug/mL ANTONIO SusceptibilityStaphylococcus epidermidis (1)Antibiotic Interpretation Method Stat usClindamycin ($) Resistant ANTONIO FinalErythromycin ($$$$) Resistant ANTONIO F inalGentamicin ($) Susceptible ANTONIO FinalOxacillin Resistant ANTONIO FinalPenici llin G ($$) Resistant ANTONIO FinalVancomycin ($) Susceptible ANTONIO FinalTetracycline Resist ant ANTONIO FinalLab and CollectionXr Abd (kub)Result Date: 04/05/2019XR ABD (KUB) CLINICAL INDICATION PROVIDED:. "assess J tube position."TECHNIQUE.: An initial AP image of the abdomen was acquired. Additional APimages of the abdomen were acquired after the hand-injection of a small volumeof radiopaque contrast by the siri ent's nurse into the patient's J-tube.COMPARISON:. 04/02/2019. FINDINGS :. The tip of the 2 projects over the midabdomen, at the level of the mid jeju num. Post injection images demonstrateopacification of loops of mid small bowel. There is no extraluminal contrastappreciated. A large volume of s tool projects over the distal colon/rectum.Densities project over the lower lungs, right greater than left. Considercorrelation with chest radiograp hs.IMPRESSION:. Injected radiopaque contrast appears to be contained within thelumen of the mid small bowel. There is no evidence of extraluminal contrast.Additional find ings and recommendations as above.Xr Abd (kub)Result Date: 04/02/2019KUB 2 view(s ) History: Evaluate J-tube. Comparison: 11/22/2018. There is a newJ-tube overlyin g the mid abdomen with kinking involving its superior andinferior portion overlying t he mid abdomen. These findings were discussed withmale nurse Jacquelyn at 3:40 PM today.. Th ere is mild ileus of the small bowel butthere is no evidence of obstruction, radiopaqu e gallstones, or left kidneystones or an appendicolith. There are possible right kidney stones. Absence ofan appendicolith it does not exclude appendicitis. CT is sug gested if clinicallyindicated. Old rib fractures are noted.IMPRESSION: Kinking of J-tube in 2 locations. Possible right kidney stonesIleus.Ir Picc Insert Wo Por t Over 5 Years Wo ImgResult Date: 04/01/2019IR PICC INSERT WO PORT OVER 5 YEARS WO IMG CLINICAL INDICATION PROVIDED.:"midline." Medical necessity f or vascular access. PROCEDURE: After beinginformed of the risks, benefits, po tential alternatives to the procedure theinformed consent was obtained. The pa tient was placed on the table the supineposition. The right upper extremit y was prepped and draped in the normal sterilefashion. Ultrasound interrogation was performed of the right upper extremity.Images were obtained. A locat ion was chosen over the right brachial vein abovethe antecubital fossa. Lidocaine so lution was used to anesthetize the scan.Access was gained under ultrasound guidance using a 21-gauge thin-walled needle.A 0.018 a wire was advanced under fluoroscopic guidance into the right axillaryvein. The needle was exchanged o lani a wire for the midline dilator and sheath.The dilator and wire were removed leaving the sheath in situ. Through the sheatha 5 Congolese double-lumen 20 cm midl ine catheter was placed. The peel-away sheathwas removed. The catheter was sewn into position using 2-0 silk sutures. Thepatient tolerated the procedure. Ther e were no complications at the time of theprocedure. FINDINGS: Ultrasound inter rogation revealed a widely patent brachialvein above the antecubital fossa . A 5 Congolese dual-lumen 20 cm midline catheterwas placed. The tip was placed i n good position over the right axillary vein.IMPRESSION: 5 Congolese dual-lumen mid line catheter placed with tip positioned overthe right axillary vein.Ct Chest Abd Pelv Wo ContResult Date: 04/20/2019Referring Physician: MILI HILLS Patient Name: EVELIO CARLIN FINAL REPORTFROM [facility] DAY [facility] EXAM: CT chest without contrast and CT abdomen pelviswithout contrast DATE OF EXAM: 2019-04-20 20:52:12 IMAGES: 681 HI STORY: reducedbreath sounds right lung, LLQ tenderness Comparison: 03/14/19 and FINDINGS: Axial images of the chest, abdomen and pelvis are obtained without ivcontrast. Chest: Mediastinal assessment is limited without contrast. Imagequality l imited by artifacts. Patchy lung opacities right greater than leftsimilar to prior. Small pleural effusions. Vascular including coronarycalcifications. Mediastinum appe ars shifted to the right. Left hemidiaphragm iselevated. Abdomen and pelvis: Nonspeci fic bowel pattern, with post surgicalchanges on the left. No definite free air. Organ assessment limited without ivcontrast. No significant free fluid or free air. No b owel obstruction or abscessseen. Catheter and air in the bladder which is not well ass essed. Left hiphardware partially seen with old fracture deformity. G-J tube is pres ent.Ventral hernia right of midline at abdominal wall with multiple small bowel loops without obstructive pattern. Mild right muscle swelling with possiblehematoma an d calcification at right groin image 117/120. Degenerative bonychanges. Multiple likel y chronic compression deformities at thoracic and lumbarspine. Bilateral L5-S1 spondyl olysis and anterolisthesis.IMPRESSION: Right greater than left lung infiltrates and e ffusions. No bowelobstruction. 2 cm hyperdensity at a bowel loop in left pel vis image 90/120,possibly ingested material, or a tube fragment or post surgical charles ge. Ventralabdominal hernia seen. See above. One or more of the following dose reduct iontechniques were used: automated exposure control, adjustment of the mA and/or kVa ccording to patient size, use of iterative reconstructive technique. THISDOCUMENT H BEEN ELECTRONICALLY SIGNED Marcie Edge MD 04/20/2019 22:43 GINA VerdePlease call Katja berger Wireless Consultant [phone] with questions. This reportwas electronically signed by: Marcie Edge MD 04/20/2019 10:44 PMUs Retroperitoneum CompResult Date: 04/23/2019Retroperitoneal sonogram clinical indication acute kidney insufficiency S tudyis limited secondary to position of the patient and the patient'sinability t o cooperate. The abdominal aorta and inferior vena cava are obscured.The right kidney measures 9.2 cm. There is no evidence of hydronephrosis. Theleft kidney measures 9.5 cm. There is no evidence of hydronephrosis. Foleycatheter is seen wi thin the bladder.IMPRESSION: 1. Limited study. 2. No evidence of hydronephrosisX r Chest PortResult Date: 04/23/2019XR CHEST PORT CLINICAL INDICATION PROVIDED:. "Lani ification of PICC lineplacement." TECHNIQUE.: 2 AP views, chest. COMPARISON:. 04/19/2019 . FINDINGS:. Thetip of the vascular catheter projects over the right axilla, likely a midlinecatheter placed on 04/01/2019. The pericardial/cardiac silhouette is enlarg ed inthe transverse dimension. There is mild pulmonary vascular congestion andinterst itial edema. There is suggestion of small bilateral pleural effusions.Density in t he lung bases may represent adjacent atelectasis or superimposedlower lung in filtrates. Follow-up radiographs are recommended.IMPRESSION:. 1. Midline cat heter projecting over the right axilla. 2. Mildcongestive failure with interstitial edema and small bilateral pleuraleffusions.Xr Chest PortResult Pan e: 04/19/2019History: Respiratory difficulty. FINDINGS: A frontal portable view of the chestis submitted for interpretation and is compared to the prior study of04/06/2019 . EKG leads overlie the chest. A right-sided midline catheter is notedin situ. The ca rdiac silhouette measures at the upper limits of normal. There ispatchy opacity noted at the lung bases, left greater than right, which may beinfiltrative or atelectatic in nature. A small left pleural effusion is noted.Mediastinal and hilar structures a re unremarkable.IMPRESSION: Basilar infiltrative change left greater than ri ght. Small leftpleural effusion.Xr Chest PortResult Date: 04/06/2019CHEST one vie w HISTORY: Pneumonia. COMPARISON: 03/25/2019. There is a poorinspiratory effort which compromises this interpretation. A repeat study issuggested. There is discoid atel ectasis and/or subsegmental left lower lobeatelectasis along the left hemidiaph ragm. .There is no gross evidence ofcongestion, effusions or pneumothorax. IMPRESSION: Possible left lower lobe atelectasis. Poor inspiratory effort.Dup krissy Upper Ext Venous LeftResult Date: 04/23/2019DUPLEX UPPER EXTREMITY-VENOUS LE FT HISTORY: Swelling left upperextremity-evaluate for DVT PRIOR: Mireya valdovinos: Most recent February 10, 2019: "Noevidence of deep vein thrombosis." TE CHNICAL FACTORS: High resolution lineargrayscale, color-flow and Doppler evaluation of the left upper extremity wasperformed from the neck to the antecu bital fossa. FINDINGS: Normal antegradeflow, compressibility of the deep venous vascu lature, except for the internaljugular and subclavian veins due to their positions/ anatomic location, as wellas augmentation of flow/phasicity is identified within the visualized portionsof the deep venous system. No filling defects are identified that w ould besuspicious for, or lead customer service representative of DVT.IMPRESSION: 1. No sonographic findin gs suggestive of thrombosis within thevisualized portions of the deep venou s system of the left upper extremity.Medications reviewedCurrent Fa cility-Administered MedicationsMedication Dose Route Frequency albuterol-ipratrop ium (DUO-NEB) 2.5 MG-0.5 MG/3 ML 3 mL Nebulization Q6HWA RT acetylcysteine (M UCOMYST) 100 mg/mL (10 %) nebulizer solution 400 mg 4 mLInhalation TID RT miconazol e (MICOTIN) 2 % cream Topical BID acetaminophen (TYLENOL) tablet 650 mg 6 50 mg Oral Q4H PRN vancomycin (VANCOCIN) 1,000 mg in 0.9% sodium chloride 250 mL IVPB 1,000 mgIntraVENous Q12H sodium chloride (NS) flush 5-10 mL 5-10 mL Int raVENous PRN budesonide (PULMICORT) 500 mcg/2 ml nebulizer suspension 500 mcg N ebulizationBID RT pantoprazole (PROTONIX) 40 mg in 0.9% sodium chloride 10 mL injecti on 40 mgIntraVENous DAILY cinacalcet (SENSIPAR) tablet 60 mg 60 mg Oral KYLEIGH Y ALPRAZolam (XANAX) tablet 0.5 mg 0.5 mg Per G Tube QHS heparin (porcine) inject ion 5,000 Units 5,000 Units SubCUTAneous Q12H lamoTRIgine (LaMICtal) tablet 50 m g 50 mg Per G Tube Q12H dextrose 5 % - 0.45% NaCl infusion 70 mL/hr IntraVENou s CONTINUOUS piperacillin-tazobactam (ZOSYN) 3.375 g in 0.9% sodium chloride (MBP/ADV ) 100mL MBP 3.375 g IntraVENous [id number]/Plan:Hospital Problems Da te Reviewed: 04/21/2019 Codes Class Noted POA Scrotal rash ICD-10-CM: L38FTD-2-BP: 782.1 04/21/2019 Yes COPD with acute exacerbation (HCC) ICD-10-CM: J44.1ICD-9 -CM: 491.21 04/19/2019 Unknown Acute on chronic respiratory failure with hypoxia and hypercapnia (HCC)ICD-10-CM: J96.21, J96.22ICD-9-CM: 518.84, 786.09, 799.02 04/19/2019 Unknown Acute hypoxemic respiratory failure (HCC) ICD-10-CM: J96.01ICD-9-CM: 518.81 03/25/2019 Unknown Pneumonia ICD-10-CM: J18.9ICD-9-CM: 486 11/08/2018 UnknownAssessment:Staph SepsisNew tremorsDisplaced mid line catheterAcute Respiratory Failure with Hypoxia and HypercapniaAcute COPD exacerbationAspira tion PneumoniaAtelectasisS/P Unresponsive like secondary to Toxic Metabolic Enceph alopathyDysphagiaMalfunctioning PEJIncomplete bladder emptyingHyperparathyroidSeizureM entally challengedAKI, worseningHypokalemiahypophosphatemiaPlan :Continue hydrationReplace K phosProtein/ albuminMonitor I&ODaily renal panelOralia Frankel MDJanuary 2019Time: 9:04 AM Name Value Range Interpretation Code Description Data Harriett rce(s) Supporting Document(s ) ID Date Data Source [id number] 04/24/2019 10:55:34 AM EST [facility] [address], [place] [email or web address] NEUROLOGY CONSULT NOTEName Evelio Carlin Age 68 [facility] Physician: Jasmeet Rae Complaint:Chief ComplaintPatient present s with Respiratory DistressHistory of Present Illness:This is a 68 y.o. M p/w abnormal movements concerning for seizure.Patient transferred from long-term w/ fever, hypoxia, hypotension, andtachypnea.Since admission, patient nelson s been minimally responsive. 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) Pneumonia Psychiatric disor bassem schizophrenia Pulmonary emboli (HCC) Schizophrenia (HCC)Past Surgical History :Procedure Laterality Date HX GASTROSTOMY PEG- replaced 11/2018Current Facility-Adm inistered MedicationsMedication Dose Route Frequency Provider Last Rate Last Dose albuterol-ipratropium (DUO-NEB) 2.5 MG-0.5 MG/3 ML 3 mL Nebulization Q6HWA RTMili Spencer, DO 3 mL at 04/24/19 0745 acetylcysteine (MUCOMYST) 100 mg/mL (10 %) nebulizer solution 400 mg 4 mLInhalation TID RT Mili Hills DO 400 mg at 0 04/24/19 0745 miconazole (MICOTIN) 2 % cream Topical BID Zuly Lacey, OLIVER acetami nophen (TYLENOL) tablet 650 mg 650 mg Oral Q4H PRN Mili Hills DO650 mg at 02/01 0929 vancomycin (VANCOCIN) 1,000 mg in 0.9% sodium chloride 250 mL IVPB 1,000 mgIntraVENous Q12H Monica Gomez MD 125 mL/hr at 04/23/19 2338 1,000 mg at 2338 sodium chloride (NS) flush 5-10 mL 5-10 mL IntraVENous PRN Neeta Coleman N P budesonide (PULMICORT) 500 mcg/2 ml nebulizer suspension 500 mcg Nebulizati onBID RT Krystian Monae MD 500 mcg at 04/24/19 0745 pantoprazole (PROTONIX) 4 0 mg in 0.9% sodium chloride 10 mL injection 40 mgIntraVENous DAILY Mili Hills DO 40 mg at 04/24/19 0925 cinacalcet (SENSIPAR) tablet 60 mg 60 mg Oral KYLEIGH Y Mili Hills DO 60mg at 04/24/19 0925 ALPRAZolam (XANAX) tablet 0.5 mg 0.5 mg Per G Tube QHS Mili Hills, DOStopped at 04/23/19 2200 heparin (porcine) injecti on 5,000 Units 5,000 Units SubCUTAneous Q12H Mili Hills DO 5,000 Units at 04/15 0525 lamoTRIgine (LaMICtal) tablet 50 mg 50 mg Per G Tube Q12H Cesar Hills, DO50 mg at 04/24/19 0925 dextrose 5 % - 0.45% NaCl infusion 70 mL/hr IntraVENou s CONTINUOUS Mili Hills DO 70 mL/hr at 04/22/19 1453 70 mL/hr at 04/22/19 1453 piperacillin-tazobactam (ZOSYN) 3.375 g in 0.9% sodium chloride (MBP/ADV) 100mL MBP 3.375 g IntraVENous Q8H Natasha Dudley MD 25 mL/hr at 04/24/19 0526 3.375g at 0 0526No Known AllergiesHistory reviewed. No pertinent family history.Social HistoryT obacco Use Smoking status: Never Smoker Smokeless tobacco: Never UsedSubstance U se Topics Alcohol use: NoReview of Systems:Unable to assessExam:Visit Vital sBP 122/76 (BP 1 Location: Left arm, BP Patient Position: At rest)Pulse 86Temp 9 9.3 F (37.4 C)Resp 20Ht 5' 2" (1.575 m)Wt 118 lb (53.5 kg)SpO2 99%BMI 21.58 kg/m G eneral: Thin, ill appearingHead: Normocephalic, atraumatic, anicteric scl eraLungs: On BiPAPCardiac: Regular rate and rhythm with no murmurs.Abd: No tendernes s on palpationExt: No pedal edemaSkin: No overt signs of rashNeurological Exam:Men krystian Status: Asleep, no response to voice, grimaces to noxious stimuliLanguage: Non -verbalCranial Nerves: PERRL, BTT b/l, +corneals. Facial movement is symmetric. Eyes: Noninjected sclerae.Motor/Sensory: Decreased bulk throughout, moving UE spo ntaneous, +withdrawal tonoxious stimuli in LE+b/l high frequency tremor in UE only after stimulationReflexes: Deep tendon reflexes 1/4 and symmetrical.Gait: Unab le to assess due to AMSCerebellar: Unable to assess due to AMSNeurovascular: No carot id bruits. No JVDImagingCT Head: not obtainedMRI Brain: not obtainedLab Revi ewLab ResultsComponent Value Date/Time WBC 12.8 (H) 04/20/2019 04:30 AM HCT 31.8 (L ) 04/20/2019 04:30 AM HGB 10.1 (L) 04/20/2019 04:30 AM PLATELET 239 04/20/2019 04:30 A MLab ResultsComponent Value Date/Time Sodium 141 04/24/2019 06:35 AM Potassium 3.3 (L ) 04/24/2019 06:35 AM Chloride 105 04/24/2019 06:35 AM CO2 31 04/24/2019 06:35 AM Gluc ose 118 (H) 04/24/2019 06:35 AM BUN 22 (H) 04/24/2019 06:35 AM Creatinine 1.62 (H) 04/24/2019 06:35 AM Calcium 9.2 04/24/2019 06:35 AMNo components found for: TROPQUA NTNo results found for: ANAAssessment/Plan: ICD-10-CM ICD-9-CM1. Acute exacerbation of chronic obstructive pulmonary disease (COPD) ([facility])J44.1 491.212. Acute hypoxem ic respiratory failure ([facility]) J96.01 518.813. Pneumonia of both lower lobes due to inf ectious organism ([facility]) J18.1 483.84. Acute respiratory distress R06.03 518.825. Scr otal rash R21 782.16. SOB (shortness of breath) R06.02 786.0568 y/o M pmh as abo ve p/w resp failure and w/ new onset tremors as described.Exam notable for tremors as above, only after stimulation.This is most likely 2/2 sig medical illness.Unlikely seizures but given questionable history of prior history, will r/o w/EEG.- cEEG whe n able (cannot currently 2/2 BiPAP)- med mgmt as per primaryMedical Decision MakingAmo unt and/or Complexity of Data ReviewedClinical lab tests: reviewed and orderedTests in the radiology section of CPT : ordered and reviewedDecide to obtain p revious medical records or to obtain history from someoneother than the patient: yesO btain history from someone other than the patient: yesReview and summarize past me dical records: yesDiscuss the patient with other providers: yesIndependent visualiz ation of images, tracings, or specimens: yes Name Value Range Interpretation Code Description Data Harriett rce(s) Supporting Document(s ) ID Date Data Source [id number] 04/24/2019 09:28:36 AM [facility] Progress NotePatient: Evelio Carlin Sex: male DOA: 04/19/2019Date of : 1950 A ge: 68 y.o. :[id number]:Reyes Carlin is 68 y.o. male who was transferred by EMS from [facility] withfever,h ypoxia, O2 SAT 83 % , hypotensive and tachypnea. Pt was unresponsive. Hewas p laced on BIPAP. Pt was seen and examined at bedside today, he is wearing BIPAP. His eyes areclosed upon chest rubs and he attempts to close tighter during my lift ing uphis upper lids. He is tremulous, mostly upper extremities, right greater thanleft.He is occas moving his right arm. No prior tremors, certainly not to thise xtent.RN reported earlier patient has leaking from the RUE mid line catheterOrdered CX R to evaluate positionPrevious awake and alert. At baseline nonverbal and unable to provide ahistory.He is sandhya TFHe has positive blood cultures with GPC in clus ters Anaerobic bottle. RN reporting 500 cc in bladder with straight cath this morning. Bladder scan showing 200+ cc urine in bladder He has medical history of Dysphagia, rec urrent aspiration pneumonia, s/p g/tplacement 11/17/18 and conversion to jtube on 02/07,hyperlipidemia, hyperparathyroid, unspecified,seizure, large hiatal hernia ,anxiety disorder, personal history of pulmonary embolus,COPD, GERD,Schizophren ia unspecified, Kyphosis, Parkinson disease, Severe intellectualdisabilities, Contrac tures and Generalized muscle weakness. He had positioningof jejeunal feeding tube and endoclipping on 03/26/19. There was leaking of theTF, the tube was found wit h a crack defect.On 04/01/19 he had endoscopic placemetn of jtube over PEG a nd removal ofdefective tube. Kinking of the jtube was found on KUB with a large volu me ofstool within the distal colon/rectum. Pt was tolerating TF via the peg port andwa s discharged to snf and outpatient follow up.On 04/16/2019 pt had ambulatory proce dure with gi. Per GI, multiple unsuccessfulattempts to place PEJ. He is suggesting surgical placement for J tube placement.Will discuss with surgeon and possible get second opinion. D/W Dr Mills, he will provide a general nena geon's second opinion. Chest XR dated 04/23/2019 Midline catheter projecting ove r the rt axilla. 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 Pupils are equalThroat: Lips, mucosa, and tongue normal. No ThrushNeck: Supple, symmetrical, no adenopathy, no carotid bruit and no JVD.Lungs: Clear to auscultation bilaterally. No Wheezing o r Rhonchi. No rales.Chest wall: No Accessory muscle use.Heart: Regular ra te and rhythm, no murmur, or rub.Abdomen: Positive peg, soft,non-tender. Not diste nded. Bowel sounds normal.No massesExtremities: Extremities normal, a traumatic, No cyanosis. Edema LUE.and traceankle edema. No clubbingSkin: W arm and dry. No rashes or lesions. Not JaundicedLymph nodes: Cervical, supracla vicular normal.Psych: Not anxious or agitated.Neurologic: EOMs intact. No fac ial asymmetry. Lethargic, nonverbalIntake and Output:Current Shift: No intake/output data recorded.Last three shifts: 04/22 1901 - 04/24 0700In: -Out: 1999 [Urine:1999]L ab/Data Reviewed:Recent Days:No results for input(s): WBC, HGB, HCT, PLT, HGBEXT, HC TEXT, PLTEXT in the last72 hours.Recent Labs 04/24/200535 04/23/200619NA 141 141K 3.3 * 3.1*CL 105 105CO2 31 31GLU 118* 140*BUN 22* 17CREA 1.62* 1.36*CA 9.2 8.9PHOS 1.8* - -ALB 1.6* --No results for input(s): PH, PCO2, PO2, HCO3, FIO2 in the last 72 tammy rs.CULTURE, BLOOD [[id number]] (Order [id number])MicrobiologyDate: 04/19/2019 Dep artment: [facility] Released By/Authorizing: Neeta Coleman NP (auto-r eleased)Specimen Information: Blood Component Value Flag Ref Range Units StatusSpecial Requests: FinalNO SPECIAL REQUESTSGRAM STAIN FinalGRAM POSITIVE COCCI IN C LUSTSerious Parody ANAEROBIC BOTTLEGRAM STAIN FinalCALLED TO AND READ BACK BY ROB LEDEZMA, RN, ED, AT 0953 ON 04/20/19 TORISMIRAGLIACulture result: Abnormal FinalSTAPHYLOCOCCUS EPIDERMIDISSusceptibilityStaphylococcus epidermidisAntibiotic Interpretation Value Method CommentClindamycin ($) Resistant <=0.25 ug/mL MICErythromycin ($$$$) Resistant >=8 ug/mL MICGentamicin ($) Susceptible <=0.5 ug/mL MICOxacillin Resistant >=4 ug/mL MICPenicillin G ($$) Resistant >=0.5 ug/ mL MICVancomycin ($) Susceptible 2 ug/mL MICTetracycline Resistant >=16 ug/mL ANTONIO SusceptibilityStaphylococcus epidermidis (1)Antibiotic Interpretation Method Stat usClindamycin ($) Resistant ANTONIO FinalErythromycin ($$$$) Resistant ANTONIO F inalGentamicin ($) Susceptible ANTONIO FinalOxacillin Resistant ANTONIO FinalPenici llin G ($$) Resistant ANTONIO FinalVancomycin ($) Susceptible ANTONIO FinalTetracycline Resist ant ANTONIO FinalLab and CollectionXr Abd (kub)Result Date: 04/05/2019XR ABD (KUB) CLINICAL INDICATION PROVIDED:. "assess J tube position."TECHNIQUE.: An initial AP image of the abdomen was acquired. Additional APimages of the abdomen were acquired after the hand-injection of a small volumeof radiopaque contrast by the siri ent's nurse into the patient's J-tube.COMPARISON:. 04/02/2019. FINDINGS :. The tip of the 2 projects over the midabdomen, at the level of the mid jeju num. Post injection images demonstrateopacification of loops of mid small bowel. There is no extraluminal contrastappreciated. A large volume of s tool projects over the distal colon/rectum.Densities project over the lower lungs, right greater than left. Considercorrelation with chest radiograp hs.IMPRESSION:. Injected radiopaque contrast appears to be contained within thelumen of the mid small bowel. There is no evidence of extraluminal contrast.Additional find ings and recommendations as above.Xr Abd (kub)Result Date: 04/02/2019KUB 2 view(s ) History: Evaluate J-tube. Comparison: 11/22/2018. There is a newJ-tube overlyin g the mid abdomen with kinking involving its superior andinferior portion overlying t he mid abdomen. These findings were discussed withmale nurse Mora at 3:40 PM today.. Th ere is mild ileus of the small bowel butthere is no evidence of obstruction, radiopaqu e gallstones, or left kidneystones or an appendicolith. There are possible right kidney stones. Absence ofan appendicolith it does not exclude appendicitis. CT is sug gested if clinicallyindicated. Old rib fractures are noted.IMPRESSION: Kinking of J-tube in 2 locations. Possible right kidney stonesIleus.Ir Picc Insert Wo Por t Over 5 Years Wo ImgResult Date: 04/01/2019IR PICC INSERT WO PORT OVER 5 YEARS WO IMG CLINICAL INDICATION PROVIDED.:"midline." Medical necessity f or vascular access. PROCEDURE: After beinginformed of the risks, benefits, po tential alternatives to the procedure theinformed consent was obtained. The pa tient was placed on the table the supineposition. The right upper extremit y was prepped and draped in the normal sterilefashion. Ultrasound interrogation was performed of the right upper extremity.Images were obtained. A locat ion was chosen over the right brachial vein abovethe antecubital fossa. Lidocaine so lution was used to anesthetize the scan.Access was gained under ultrasound guidance using a 21-gauge thin-walled needle.A 0.018 a wire was advanced under fluoroscopic guidance into the right axillaryvein. The needle was exchanged o lani a wire for the midline dilator and sheath.The dilator and wire were removed leaving the sheath in situ. Through the sheatha 5 Congolese double-lumen 20 cm midl ine catheter was placed. The peel-away sheathwas removed. The catheter was sewn into position using 2-0 silk sutures. Thepatient tolerated the procedure. Ther e were no complications at the time of theprocedure. FINDINGS: Ultrasound inter rogation revealed a widely patent brachialvein above the antecubital fossa . A 5 Congolese dual-lumen 20 cm midline catheterwas placed. The tip was placed i n good position over the right axillary vein.IMPRESSION: 5 Congolese dual-lumen mid line catheter placed with tip positioned overthe right axillary vein.Ct Chest Abd Pelv Wo ContResult Date: 04/20/2019Referring Physician: MILI HILLS Patient Name: EVELIO CARLIN FINAL REPORTFROM [facility]AGING DAY HABILITATION SPECIALIST EXAM: CT chest without contrast and CT abdomen pelviswithout contrast DATE OF EXAM: 2019-04-20 20:52:12 IMAGES: 681 HI STORY: reducedbreath sounds right lung, LLQ tenderness Comparison: 03/14/19 and FINDINGS: Axial images of the chest, abdomen and pelvis are obtained without ivcontrast. Chest: Mediastinal assessment is limited without contrast. Imagequality l imited by artifacts. Patchy lung opacities right greater than leftsimilar to prior. Small pleural effusions. Vascular including coronarycalcifications. Mediastinum appe ars shifted to the right. Left hemidiaphragm iselevated. Abdomen and pelvis: Nonspeci fic bowel pattern, with post surgicalchanges on the left. No definite free air. Organ assessment limited without ivcontrast. No significant free fluid or free air. No b owel obstruction or abscessseen. Catheter and air in the bladder which is not well ass essed. Left hiphardware partially seen with old fracture deformity. G-J tube is pres ent.Ventral hernia right of midline at abdominal wall with multiple small bowel loops without obstructive pattern. Mild right muscle swelling with possiblehematoma an d calcification at right groin image 117/120. Degenerative bonychanges. Multiple likel y chronic compression deformities at thoracic and lumbarspine. Bilateral L5-S1 spondyl olysis and anterolisthesis.IMPRESSION: Right greater than left lung infiltrates and e ffusions. No bowelobstruction. 2 cm hyperdensity at a bowel loop in left pel vis image 90/120,possibly ingested material, or a tube fragment or post surgical charles ge. Ventralabdominal hernia seen. See above. One or more of the following dose reduct iontechniques were used: automated exposure control, adjustment of the mA and/or kVa ccording to patient size, use of iterative reconstructive technique. THISDOCUMENT H BEEN ELECTRONICALLY SIGNED Marcie Edge MD 04/20/2019 22:43 GIAN VerdePlease call Katjadevang berger Wireless Consultant [phone] ([phone]) with questions. This reportwas electronically signed by: Marcie Edge MD 04/20/2019 10:44 PMUs Retroperitoneum CompResult Date: 04/23/2019Retroperitoneal sonogram clinical indication acute kidney insufficiency S tudyis limited secondary to position of the patient and the patient'sinability t o cooperate. The abdominal aorta and inferior vena cava are obscured.The right kidney measures 9.2 cm. There is no evidence of hydronephrosis. Theleft kidney measures 9.5 cm. There is no evidence of hydronephrosis. Foleycatheter is seen wi thin the bladder.IMPRESSION: 1. Limited study. 2. No evidence of hydronephrosisX r Chest PortResult Date: 04/23/2019XR CHEST PORT CLINICAL INDICATION PROVIDED:. "Lani ification of PICC lineplacement." TECHNIQUE.: 2 AP views, chest. COMPARISON:. 04/19/2019 . FINDINGS:. Thetip of the vascular catheter projects over the right axilla, likely a midlinecatheter placed on 04/01/2019. The pericardial/cardiac silhouette is enlarg ed inthe transverse dimension. There is mild pulmonary vascular congestion andinterst itial edema. There is suggestion of small bilateral pleural effusions.Density in t he lung bases may represent adjacent atelectasis or superimposedlower lung in filtrates. Follow-up radiographs are recommended.IMPRESSION:. 1. Midline cat heter projecting over the right axilla. 2. Mildcongestive failure with interstitial edema and small bilateral pleuraleffusions.Xr Chest PortResult Pan e: 04/19/2019History: Respiratory difficulty. FINDINGS: A frontal portable view of the chestis submitted for interpretation and is compared to the prior study of04/06/2019 . EKG leads overlie the chest. A right-sided midline catheter is notedin situ. The ca rdiac silhouette measures at the upper limits of normal. There ispatchy opacity noted at the lung bases, left greater than right, which may beinfiltrative or atelectatic in nature. A small left pleural effusion is noted.Mediastinal and hilar structures a re unremarkable.IMPRESSION: Basilar infiltrative change left greater than ri ght. Small leftpleural effusion.Xr Chest PortResult Date: 04/06/2019CHEST one vie w HISTORY: Pneumonia. COMPARISON: 03/25/2019. There is a poorinspiratory effort which compromises this interpretation. A repeat study issuggested. There is discoid atel ectasis and/or subsegmental left lower lobeatelectasis along the left hemidiaph ragm. .There is no gross evidence ofcongestion, effusions or pneumothorax. IMPRESSION: Possible left lower lobe atelectasis. Poor inspiratory effort.Dup krissy Upper Ext Venous LeftResult Date: 04/23/2019DUPLEX UPPER EXTREMITY-VENOUS LE FT HISTORY: Swelling left upperextremity-evaluate for DVT PRIOR: Mireya valdovinos: Most recent February 10, 2019: "Noevidence of deep vein thrombosis." TE CHNICAL FACTORS: High resolution lineargrayscale, color-flow and Doppler evaluation of the left upper extremity wasperformed from the neck to the antecu bital fossa. FINDINGS: Normal antegradeflow, compressibility of the deep venous vascu lature, except for the internaljugular and subclavian veins due to their positions/ anatomic location, as wellas augmentation of flow/phasicity is identified within the visualized portionsof the deep venous system. No filling defects are identified that w ould besuspicious for, or lead customer service representative of DVT.IMPRESSION: 1. No sonographic findin gs suggestive of thrombosis within thevisualized portions of the deep venou s system of the left upper extremity.Medications reviewedCurrent Fa cility-Administered MedicationsMedication Dose Route Frequency albuterol-ipratrop ium (DUO-NEB) 2.5 MG-0.5 MG/3 ML 3 mL Nebulization Q6HWA RT acetylcysteine (M UCOMYST) 100 mg/mL (10 %) nebulizer solution 400 mg 4 mLInhalation TID RT miconazol e (MICOTIN) 2 % cream Topical BID acetaminophen (TYLENOL) tablet 650 mg 6 50 mg Oral Q4H PRN vancomycin (VANCOCIN) 1,000 mg in 0.9% sodium chloride 250 mL IVPB 1,000 mgIntraVENous Q12H sodium chloride (NS) flush 5-10 mL 5-10 mL Int raVENous PRN budesonide (PULMICORT) 500 mcg/2 ml nebulizer suspension 500 mcg N ebulizationBID RT pantoprazole (PROTONIX) 40 mg in 0.9% sodium chloride 10 mL injecti on 40 mgIntraVENous DAILY cinacalcet (SENSIPAR) tablet 60 mg 60 mg Oral KYLEIGH Y ALPRAZolam (XANAX) tablet 0.5 mg 0.5 mg Per G Tube QHS heparin (porcine) inject ion 5,000 Units 5,000 Units SubCUTAneous Q12H lamoTRIgine (LaMICtal) tablet 50 m g 50 mg Per G Tube Q12H dextrose 5 % - 0.45% NaCl infusion 70 mL/hr IntraVENou s CONTINUOUS piperacillin-tazobactam (ZOSYN) 3.375 g in 0.9% sodium chloride (MBP/ADV ) 100mL MBP 3.375 g IntraVENous [id number]/Plan:Hospital Problems Da te Reviewed: 04/21/2019 Codes Class Noted POA Scrotal rash ICD-10-CM: T69PBX-5-JM: 782.1 04/21/2019 Yes COPD with acute exacerbation (HCC) ICD-10-CM: J44.1ICD-9 -CM: 491.21 04/19/2019 Unknown Acute on chronic respiratory failure with hypoxia and hypercapnia (HCC)ICD-10-CM: J96.21, J96.22ICD-9-CM: 518.84, 786.09, 799.02 04/19/2019 Unknown Acute hypoxemic respiratory failure (HCC) ICD-10-CM: J96.01ICD-9-CM: 518.81 03/25/2019 Unknown Pneumonia ICD-10-CM: J18.9ICD-9-CM: 486 11/08/2018 UnknownAssessment:Staph SepsisNew tremorsDisplaced mid line catheterAcute Respiratory Failure with Hypoxia and HypercapniaAcute COPD exacerbationAspira tion PneumoniaAtelectasisS/P Unresponsive like secondary to Toxic Metabolic Enceph alopathyDysphagiaMalfunctioning PEJIncomplete bladder emptyingHyperparathyroidSeizureM entally challengedPlan:Ordered IM Ativan 1 mg tonightConsult neuroConsult hospitalist staff for removal of mid line cathContinue IV vancomycin and zosyn per IDPulmonary f/u Voiding trialContinue nebulizersSurgery f/uNutritionShirDuncan Downey 2019Time: 9:04 AM Name Value Range Interpretation Code Description Data [facility] rce(s) Supporting Document(s ) ID Date Data Source [id number] 04/24/2019 08:37:35 AM [facility] Attempted LTM. Pt currently on Bipap and unstable to be on nasal cannula forconnection per nurse. Pt LTM now on h old. Advised Dr. Jay hawk. 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 Name Value Range Interpretation Code Description Data [facility] rce(s) Supporting Document(s ) ID Date Data Source [id number] 04/24/2019 07:45:55 AM [facility] Bedside and Verbal shift change report carol Gross (oncoming nurse) Lisbeth Schmitz (offgoing nurse). Report included the following information SBAR,Kardex, Intake/Output, MAR and Recent Results. Name Value Range Interpretation Code Description Data [facility] rce(s) Supporting Document(s ) ID Date Data Source [id number] 04/24/2019 07:03:02 AM [facility] 0408, patient is voiding, diaper is wetF oley catheter discontinued as per Dr. Hills orderedUrine output 400ml., pt tolerated wellContinue to monitor patient I &O Name Value Range Interpretation Code Description Data [facility] rce(s) Supporting Document(s ) ID Date Data Source [id number] 04/24/2019 12:00:56 PM [facility] Name Value Range Interpretation Description Data Sup porting Code Source(s) Document(s ) Urate 4.0 mg/dL 3.5-7.2 [facility] [Mass/volu [facility] me] in Hospital Serum or Plasma ID Date Data Source [id number] 04/24/2019 12:00:56 PM EST [facility] Name Value Range Interpretation Description Data Sup porting Code Source(s) Document(s ) Creatine 33 U/L 39-308 Below low normal [facility] kinase [facility] [Enzymatic Hospital activity/volu me] in Serum or Plasma ID Date Data Source [id number] 04/24/2019 07:43:45 AM EST [facility] Name Value Range Interpretation Description Data Sup porting Code Source(s) Document(s ) Sodium 141 136-145 [facility] [Moles/volume] mmol/L [facility] in Serum or Hospital Plasma Potassium 3.3 3.5-5.1 Below low normal [facility] [Moles/volume] mmol/L [facility] in Serum or Hospital Plasma Chloride 105 98-107 [facility] [Moles/volume] mmol/L [facility] in Serum or Hospital Plasma Carbon 31 21-32 [facility] dioxide, total mmol/L [facility] [Moles/volume] Hospital in Serum or Plasma Anion gap in 8 mmol/L 10-20 Below low normal [facility] od Serum or [facility] Plasma Hospital Glucose 118 74-106 Above high normal [facility] [Mass/volume] mg/dL [facility] in Serum or Hospital Plasma Urea nitrogen 22 mg/dL 7-18 Above high normal [facility] [Mass/volume] [facility] in Serum or Hospital Plasma Creatinine 1.62 0.70-1.3 Above high normal [facility] d [Mass/volume] mg/dL 0 [facility] in Serum or Hospital Plasma Glomerular 55 >60 Below low normal [facility] filtration ml/min/1 [facility] rate/1.73 sq M .73m2 Hospital predicted among blacks [Volume Rate/Area] in Serum or Plasma by Creatinine-bas ed formula (MDRD) Glomerular 45 >60 Below low normal [facility] filtration ml/min/1 [facility] rate/1.73 sq M .73m2 Hospital predicted among non-blacks [Volume Rate/Area] in Serum or Plasma by Creatinine-bas ed formula (MDRD) Calcium 9.2 8.5-10.1 [facility] [Mass/volume] mg/dL [facility] in Serum or Hospital Plasma Phosphate 1.8 2.5-4.9 Below low normal [facility] [Mass/volume] mg/dL [facility] in Serum or Hospital Plasma Albumin 1.6 g/dL 3.5-4.7 Below low normal [facility] [Mass/volume] [facility] in Serum or Hospital Plasma by Bromocresol purple (BCP) dye binding method ID Date Data Source [id number] 04/24/2019 11:54:39 AM EST [facility] Name Value Range Interpretation Description Data Sup porting Code Source(s) Document(s ) Parathyrin 81.1 20.0-80.0 Above high normal [facility] - Goo d .intact pg/mL [facility] [Mass/volu Hospital me] in Serum or Plasma ID Date Data Source [id number] 04/24/2019 05:27:21 AM EST [facility] Problem: Falls - Risk ofGoal: *Absence o f FallsDescriptionDocument Samra Fall Risk and appropriate interventions in the jhon wsheet.Outcome: Progressing Towards GoalNote: Fall Risk Interventions:Mentation Interv entions: Bed/chair exit alarmMedication Interventions: Bed/chair exit alarmElimi nation Interventions: Bed/chair exit alarmProblem: Patient Education: Go to P atient Education ActivityGoal: Patient/Family EducationOutcome: Progressing Towards Go alProblem: Pressure Injury - Risk ofGoal: *Prevention of pressure injuryDescriptio nDocument Butch Scale and appropriate interventions in the flowsheet.Outcome: Progressing Towards GoalNote: Pressure Injury Interventions:Sensory Interventions: Ass ess changes in LOCMoisture Interventions: Internal/External urinary devicesActivit y Interventions: Pressure redistribution bed/mattress(bed type)Mobility Intervent ions: Pressure redistribution bed/mattress (bed type)Nutrition Interventions: Docum ent food/fluid/supplement intakeFriction and Shear Interventions: Apply protective ba rrier, creams andemollientsProblem: Patient Education: Go to Patient Education Activ ityGoal: Patient/Family EducationOutcome: Progressing Towards GoalProblem: Tissue Perfusion - Cardiopulmonary, AlteredGoal: *Optimize tissue perfusionOutcome: Progr essing Towards GoalGoal: *Absence of hypoxiaOutcome: Progressing Towards Goal Problem: Patient Education: Go to Patient Education ActivityGoal: Patient/Family E ducationOutcome: Progressing Towards GoalProblem: Impaired Skin Integrity/Pre ssure Injury TreatmentGoal: *Improvement of Existing Pressure InjuryOutcome: Progres sing Towards GoalGoal: *Prevention of pressure injuryDescriptionDocument Brade n Scale and appropriate interventions in the flowsheet.Outcome: Progressing Towards G oalNote: Pressure Injury Interventions:Sensory Interventions: Ass ess changes in LOCMoisture Interventions: Internal/External urinary devicesActivit y Interventions: Pressure redistribution bed/mattress(bed type)Mobility Intervent ions: Pressure redistribution bed/mattress (bed type)Nutrition Interventions: Docum ent food/fluid/supplement intakeFriction and Shear Interventions: Apply protective ba rrier, creams andemollientsProblem: Patient Education: Go to Patient Education Activ ityGoal: Patient/Family EducationOutcome: Progressing Towards GoalProblem: Nutriti on DeficitGoal: *Optimize nutritional statusDescriptionPt meeting 80% nutrient needs within 3-7 daysOutcome: Progressing Towards Goal Name Value Range Interpretation Code Description Data Harriett rce(s) Supporting Document(s ) ID Date Data Source [id number] 04/23/2019 09:23:28 PM [facility] ID Progress Note04/23/2019Subjective:Awake non verbal on BiPAPAfebrileBlood cultures positive for staph epidermidisObjective: Review of SystemsPatient is unable to provideVitals:Patient Vitals for the pas t 24 hrs: BP Temp Pulse Resp SpO2 Jcyatq72/09/20 1327 - - - - 98 % - 1127 111/80 98.5 F (36.9 C) 87 20 98 % -04/23/19 1100 - - - - 96 % -04/23/19 08 56 - - - - 91 % -04/23/19 0750 151/77 98.2 F (36.8 C) 79 - 99 % -04/23/19 0648 - - - - - 61 kg (134 lb 8 oz)04/23/19 0436 126/70 98.1 F (36.7 C) 70 22 100 % -04/23/19 0130 - - - - 100 % -04/23/19 0034 - - - - 98 % -04/22/19 2334 121/65 98.5 F (36.9 C ) 77 19 100 % -04/22/192013 - - - - 97 % -04/22/19 1928 131/71 98 F (36.7 C) 83 23 96 % -04/22/19 1732 - - - - 95 % -04/22/19 1537 126/79 98.7 F (37.1 C) 97 21 93 % -Tmax: Temp (24hrs), Av.3 F (36.8 C), Min:98 F (36.7 C), Max:98.7 F(37.1 C)Physical Exam:General: Awake non verbal no distress, appears stated age. Eyes: Conjunctivae/corneas clear. PERRLNeck: Supple, symmetrical, trachea midline, no adenopathyLungs: bilateral breath sounds with basal crackles..Heart: Regular rat e and rhythm, S1, S2 normal, no murmurAbdomen: Soft, non-tender. Bowel sounds normal. No masses, Noorganomegaly.peg+Back: Symmetric, no curvature. ROM normal. No CVA tenderness.Extremities: No cyanosis ,chr onic lymphedema .PICC right upper ext.Pulses: 2+ and symmetric all extremities.Skin: S kin color, texture, turgor normal. No rashes or lesionsLymph nodes: Cervical, supracl avicular, and axillary nodes normal.Neurologic: Awake non verbal func tion quadriplegia.Current Facility-Administered MedicationsMedicat ion Dose Route Frequency albuterol-ipratropium (DUO-NEB) 2.5 MG-0 .5 MG/3 ML 3 mL Nebulization Q6HWA RT acetylcysteine (MUCOMYST) 100 mg/mL (10 %) nebulizer solution 400 mg 4 mLInhalation TID RT miconazole (MICOTIN) 2 % cream Topical BID acetaminophen (TYLENOL) tablet 650 mg 650 mg Oral Q4H PRN vancomycin (VANCOCIN) 1,000 mg in 0.9% sodium chloride 250 mL IVPB 1,000 mgIntraVENous Q12H s odium chloride (NS) flush 5-10 mL 5-10 mL IntraVENous PRN budesonide (PULMICORT) 500 mcg/2 ml nebulizer suspension 500 mcg NebulizationBID RT pantoprazole (PROTON IX) 40 mg in 0.9% sodium chloride 10 mL injection 40 mgIntraVENous DAILY cinac alcet (SENSIPAR) tablet 60 mg 60 mg Oral DAILY ALPRAZolam (XANAX) tablet 0.5 mg 0.5 mg Per G Tube QHS heparin (porcine) injection 5,000 Units 5,000 Units SubCU TAneous Q12H lamoTRIgine (LaMICtal) tablet 50 mg 50 mg Per G Tube Q12H dextrose 5 % - 0.45% NaCl infusion 70 mL/hr IntraVENous CONTINUOUS piperacillin-cuba obactam (ZOSYN) 3.375 g in 0.9% sodium chloride (MBP/ADV) 100mL MBP 3.375 g In traVENous W0SGgdn:Recent Labs 04/23/200619BUN 17CREA 1.36*Cultures:Lab ResultsComponent Value Date/Time Culture result: NO GROWTH 3 DAYS 04/20/2019 02:4 7 PM Culture result: NO GROWTH 3 DAYS 04/20/2019 02:40 PM Culture result: STAP HYLOCOCCUS EPIDERMIDIS (A) 04/19/2019 10:15 AMRadiology:Us Retroperitoneum CompResul t Date: 04/23/2019Retroperitoneal sonogram clinical indication acute kidney insuff iciency Studyis limited secondary to position of the patient and the patient' sinability to cooperate. The abdominal aorta and inferior vena cava are obscured.The right kidney measures 9.2 cm. There is no evidence of hydronephrosis. Theleft kidn ey measures 9.5 cm. There is no evidence of hydronephrosis. Foleycatheter is seen wi thin the bladder.IMPRESSION: 1. Limited study. 2. No evidence of hydronephrosisD uplex Upper Ext Venous LeftResult Date: 04/23/2019DUPLEX UPPER EXTREMITY-VENOUS LE FT HISTORY: Swelling left upperextremity-evaluate for DVT PRIOR: Mireya valdovinos: Most recent February 10, 2019: "Noevidence of deep vein thrombosis." TE CHNICAL FACTORS: High resolution lineargrayscale, color-flow and Doppler evaluation of the left upper extremity wasperformed from the neck to the antecu bital fossa. FINDINGS: Normal antegradeflow, compressibility of the deep venous vascu lature, except for the internaljugular and subclavian veins due to their positions/ anatomic location, as wellas augmentation of flow/phasicity is identified within the visualized portionsof the deep venous system. No filling defects are identified that w ould besuspicious for, or lead customer service representative of DVT.IMPRESSION: 1. No sonographic findin gs suggestive of thrombosis within thevisualized portions of the deep venou s system of the left upper extremity.Assessment: Staph sepsis. As piration pneumonia. Acute COPD exacerbation. Acute respiratory failure. Dysphagia . Plan:1. Continue Iv vancomycin and zosyn2. Follow culturesFomalaika Dudley MDJanuary 20193:08 PM Name Value Range Interpretation Code Description Data Harriett rce(s) Supporting Document(s ) ID Date Data Source [id number] 04/24/2019 08:06:37 AM EST [facility] Name Value Range Interpretation Description Data Sup porting Code Source(s) Document(s ) C reactive 43 mg/L 0-10 Above high normal [facility] - Goo d protein Taoist [Mass/volume] [facility] in Serum or Plasma (NOTE)Performed At: RN [facility] [address] [id number] García MD Ph:[phone] ID Date Data Source [id number] 04/23/2019 08:37:45 PM EST [facility] Name Value Range Interpretation Description Data Sup porting Code Source(s) Document(s ) Erythrocyte 83 mm/hr 0-20 Above high normal [facility] - Go od sedimentation [facility] ID Date Data Source [id number] 04/23/2019 07:44:10 PM EST [facility] Progress NoteMID-N[facility] ,[facility].Krystian Monae MD., F.C.C.P.Stella Hamilton MD., F.C.C.P. [address]W [address] [facility] [address] [place] [id number] [place] [id number] [phone]: Evelio Carlin Sex: male DOA: 04/19/2019Dat e of : 1950 Age: 68 y.o. LOS: LOS: 4 daysSubjective:Patient i s on BIPAP FOR RESPIRATORY DISTRESS , NON VERBAL . G I AND SURGERYNOTES NOTED , PROBABLY PREP RATION FOR SURGICAL INTERVENTION FO J TUBEINSERTION.PATIEN T WITH RESPIRATORY FAILURE STILL IN MODERATE RESP DISTRESS ON NASALCANNULAC EREBRAL PALSY , BEDRIDDEN TODAY TARSFERRED WITH FECER AND MENTAL CHANGES .PATIENT IS FAMILIAR TO ME FROM PAST ADMISSIONS . HX DYSPHAGIA , COPD,SEIZURES , CEREBRA L PALSY .MENTQAL RETARDATION ,PARKINSONISM SCHIZOPHRENIA , , CHEST XRAY - ATELECTA SIS L L L , COPD , KYPHOSCOLIOSIS . PAST HCX PUL;MONARY EMBOLISM . We were asked to admit for work up and evaluation of the above problems. Past Medical Histo ry:Diagnosis Date Chronic obstructive pulmonary disease (HCC) Diaphragmatic hernia without obstruction and without gangrene GERD (gastroesophageal reflu x disease) Hyperparathyroidism (HCC) Mental retardation Parkinsonism due t o drug (HCC) Pneumonia Psychiatric disorder schizophrenia Pulmonary emb jennyfer (HCC) Schizophrenia (HCC) Past Surgical History:Procedure Laterali ty Date HX GASTROSTOMY PEG- replaced 11/2018 Social History Tobacco Use Smoking status: Never Smoker Smokeless tobacco: Never UsedSubstance Use Topics Alcohol use: No History reviewed. No pertinent family history. No Known Aller gies Prior to Admission medicationsMedication Sig Start Date End Date Taking? Authorizing ProviderlamoTRIgine (LAMICTAL) 25 mg rapid dissolve tablet T RADHAMES 2 TABLETS BY MOUTH EVERY12 HOURS 03/18/19 Provider, Historicalzinc oxide 20 % o intment Apply to affected area as needed for Skin Irritation.Provider, Historicalomemaximo razole (PRILOSEC) 2 mg/mL susp 2 mg/mL oral suspension (compounded) Take 20mL by sarah daily. 04/06/19 Christos Lopez MDheparin sodium,porcine (HEPARIN, PORCI NE,) 5,000 unit/mL injection 1 mL bySubCUTAneous route every twelve (12) h ours every twelve (12) hours. 03/17/19 Mili Hills DOmultivitamin (MULTI-D ELYN, WELLESSE) liqd 5 mL by Per G Tube route daily.03/17/19 Mili Hills DOace taminophen (TYLENOL) 32MG/ML soln solution Take 20.3 mL by mouth every four(4) hour s as needed for Pain or Fever. 03/17/19 Mili Hills DOacetylcysteine (MUCOM YST) 100 mg/mL (10 %) nebulizer solution Take 4 mL byinhalation two (2) times a day. Provider, Historicalclorazepate (TRANXENE) 3.75 mg tablet 1 Tab by Per G Tube route nightly. MaxDaily Amount: 3.75 mg. 12/30/18 Mili Hills DOcinajenn alcet (SENSIPAR) 30 mg tablet Take 2 Tabs by mouth daily.Patient taking differently: 30 mg daily. Via G tube 12/30/18 Mili Hills DOalbuterol-ipratropium (DUO-NEB ) 2.5 mg-0.5 mg/3 ml nebu 3 mL by Nebulizationroute every six (6) hours. E very 6 hours while awakePatient taking differently: 3 mL by Nebulization route every four (4) hours asneeded. Every 6 hours while awake 12/30/18 Mili Hills DObudesonide (PULMICORT) 0.5 mg/2 mL nbsp 2 mL by Nebulization route two (2) timesa day. 12/30/18 Mili Hills DO REVIEW OF SYSTEMS: NON VERBAL , IN EVIDENT M ODERATE DISTRESSGeneral: negative for fever, chills, sweats, weaknessEyes: negative f or blurred vision, eye pain, loss of vision, diplopiaEar Nose and Throat: negative fo r rhinorrhea, pharyngitis, otalgia, tinnitus,speech or swallowing difficulti esRespiratory: negative for cough, sputum production, SOB, wheezing, DAVALOS,pleuritic painCardiology: negative for chest pain, palpitations, orthopnea, PND, edema,sync opeGastrointestinal: negative for abdominal pain, N/V, dysphagia, change in bowelhab its, bleedingGenitourinary: negative for frequency, urgency, dysuria, hematuria, incontinenceMuskuloskeletal : negative for arthralgia, myalgiaHematology: negative for easy bruising, bleeding, lymphadenopathyDermatological: negative for rash, ulceration, mole change, new lesionEndocrine: negative for hot flashe s or polydipsiaNeurological: negative for headache, dizziness, confusion, focal we akness,paresthesia, memory loss, gait disturbancePsychological: negative for a nxiety, depression, agitationObjective:Vital Signs:Patient Vitals for the past 24 hrs : BP Temp Pulse Resp SpO2 Selyhx51/09/20 1612 - - - - 98 % -04/23/19 1605 148/82 99.7 F (37.6 C) 83 24 98 % -04/23/19 1327 - - - - 98 % -04/23/19 1127 111/80 98.5 F (36 .9 C) 87 20 98 % -04/23/19 1100 - - - - 96 % -04/23/19 0856 - - - - 91 % -04/23/19 07 50 151/77 98.2 F (36.8 C) 79 - 99 % -04/23/19 0648 - - - - - 61 kg (134 lb 8 oz)04/23/19 0436 126/70 98.1 F (36.7 C) 70 22 100 % -04/23/19 0130 - - - - 100 % -0 04/23/19 0034 - - - - 98 % -04/22/19 2334 121/65 98.5 F (36.9 C) 77 19 100 % -2013 - - - - 97 % -Pulse OX:SpO2 Readings from Last 6 Encounters:04/23/19 98%04/16/19 100%04/06/19 99%03/17/19 92%02/19/19 96%02/18/19 92%@LASTSAO2(6)@ Physical Exam:NOTED PATIENT IS TACHYPNEIC RR = 28 /MT ON NASAL CANNULA Gen eral: Alert, cooperative,MILD RESPIRATORY distress, appearsstated age. Head: Normocephalic, without obvious abnormality, atraumatic. Eyes : Conjunctivae/corneas clear. PERRL, EOMs intact. Nose: Nares normal. No drainage or sinus tenderness Throat: Lips, mucosa, and tongue jazzmine l Neck: Supple, symmetrical, trachea midline, no adenopathy,thyroid: no enlargement/tenderness/nodules, no carotid bruit and no JVD. Elham ngs: WHEEZING AND RHONCHI +1 , RALE S+ R L L AND L L L toauscultation bilaterall y. Chest Wall: No tenderness or deformity. Heart: Regular rate and rhyt hm, S1, S2 normal, no murmur, click,rub or gallop. Abdomen: Soft, non-tender. Bowel sounds normal. No masses, No organomegaly. Extremities: Extremities normal, atraumatic, no cyanosis or edema. Pulses: 4+ bilaterally. Skin: Skin color, texture, turgor normal. No rashes or lesions. Neurologi c: CNII-XII intact. No focal motor or sensory deficit.Intake and Output:Last t hree shifts: 04/22 0701 - 04/23 1900In: -Out: 1150 [Urine:1150]Lab Results:Recen t Results (from the past 24 hour(s))METABOLIC PANEL, BASIC Collection Time: 04/23/19 7:19 AMResult Value Ref Range Sodium 141 136 - 145 mmol/L Potassium 3.1 (L) 3.5 - 5.1 mmol/L Chloride 105 98 - 107 mmol/L CO2 31 21 - 32 mmol/L Anion gap 8 (L) 10 - 20 m mol/L Glucose 140 (H) 74 - 106 mg/dL BUN 17 7 - 18 mg/dL Creatinine 1.36 (H) 0.70 - 1. 30 mg/dL GFR est AA >60 >60 ml/min/1.73m2 GFR est non-AA 55 (L) >60 ml/min/1.73m2 Calc ium 8.9 8.5 - 10.1 mg/dLCK Collection Time: 04/23/19 7:19 AMResult Value Ref Range CK 52 39 - 308 U/LTSH 3RD GENERATION Collection Time: 04/23/19 7:19 AMResult Value Ref Range TSH 2.990 0.360 - 3.740 uIU/mLURIC ACID Collection Time: 0 7:19 AMResult Value Ref Range Uric acid 3.6 3.5 - 7.2 mg/dLEOSINOPHILS, URINE Co llection Time: 04/23/19 11:00 AMResult Value Ref Range Eosinophils,urine NONE NONESOD IUM, UR, RANDOM Collection Time: 04/23/19 11:00 AMResult Value Ref Range Sodium,ur ine random 86 40 - 220 MMOL/LURINALYSIS W/ RFLX MICROSCOPIC Collection Time: 11:00 AMResult Value Ref Range Color YELLOW YEL Appearance CLEAR CLEAR Specif ic gravity 1.010 1.003 - 1.030 pH (UA) 6.0 4.6 - 8.0 Protein NEGATIVE NEG mg/dL Gl ucose NEGATIVE NEG mg/dL Ketone NEGATIVE NEG mg/dL Bilirubin NEGATIVE NEG Blood MODERATE (A) NEG Urobilinogen 0.2 0.2 - 1.0 EU/dL Nitrites NEGATIVE NEG Leukocyte E sterase TRACE (A) NEG WBC 5-10 0 - 5 /hpf RBC 5-10 0 - 2 /hpf Epithelial cells 0-3 0 - 10 /hpf Bacteria NONE NONE /hpf Casts NONE NONE /lpf Crystals, urine NONE NONE /LPF ABG:No results for input(s): PH, PCO2, PO2, HCO3, FIO2 in the last 72 hours.Recent G lucose Results:Lab ResultsComponent Value Date/Time GLU 140 (H) 04/23/2019 07:19 A M@LABAPCYTOINTERPRETATION@CULTURESAll Micro Results Procedure Component Value Units Date/Time CULTURE, BLOOD [[id number]] Collected: 04/20/19 1440 Order Status: Completed Specimen: Blood Updated: 04/23/19525 Special Requests: NO SPEC IAL REQUESTS Culture result: NO GROWTH 3 DAYS CULTURE, BLOOD [[id number]] Collecte d: 04/20/19 1447 Order Status: Completed Specimen: Blood Updated: 04/23/19525 Special Requests: NO SPECIAL REQUESTS Culture result: NO GROWTH 3 DAYS CULTURE , BLOOD [[id number]] (Abnormal) Collected: 04/19/19 1005 Order Status: Completed S pecimen: Blood Updated: 04/22/19 0731 Special Requests: NO SPECIAL REQUESTS G ESCOBAR STAIN GRAM POSITIVE COCCI IN CLUSTERS ANAEROBIC BOTTLE CALLED TO AND READ MAIN K BY ROB LEDEZMA,RN, ED, 0966 ON 04/20/19 TORISMIRAGLIA Culture result: S TAPHYLOCOCCUS EPIDERMIDIS : Refer to previous culture(s) for susceptibilityresults CUL TURE, BLOOD [[id number]] (Abnormal) (Susceptibility) Collected: 5 Order Status: Completed Specimen: Blood Updated: 04/22/19 0729 Special Request s: NO SPECIAL REQUESTS GRAM STAIN GRAM POSITIVE COCCI IN CLUSTERS ANAEROBIC BOT TLE CALLED TO AND READ BACK BY ROB LEDEZMA, RN, ED, AT 0953 ON 04/20/19 TO [facility] Culture result: STAPHYLOCOCCUS EPIDERMIDISImages:@IMAGESENCORD@Xr Abd ( kub)Result Date: 04/05/2019XR ABD (KUB) CLINICAL INDICATION PROVIDED:. "assess J tube position."TECHNIQUE.: An initial AP image of the abdomen was acquired. Addit ional APimages of the abdomen were acquired after the hand-injection of a small volu meof radiopaque contrast by the patient's nurse into the patient's J-tube.COMPARIS ON:. 04/02/2019. FINDINGS:. The tip of the 2 projects over the midabdomen, at the lev el of the mid jejunum. Post injection images demonstrateopacification of loops of mid small bowel. There is no extraluminal contrastappreciated. A large volume of s tool projects over the distal colon/rectum.Densities project over the lower lungs, right greater than left. Considercorrelation with chest radiograp hs.IMPRESSION:. Injected radiopaque contrast appears to be contained within thelumen of the mid small bowel. There is no evidence of extraluminal contrast.Additional find ings and recommendations as above.Xr Abd (kub)Result Date: 04/02/2019KUB 2 view(s ) History: Evaluate J-tube. Comparison: 11/22/2018. There is a newJ-tube overlyin g the mid abdomen with kinking involving its superior andinferior portion overlying t he mid abdomen. These findings were discussed withmale nurse Jacquelyn at 3:40 PM today.. Th ere is mild ileus of the small bowel butthere is no evidence of obstruction, radiopaqu e gallstones, or left kidneystones or an appendicolith. There are possible right kidney stones. Absence ofan appendicolith it does not exclude appendicitis. CT is sug gested if clinicallyindicated. Old rib fractures are noted.IMPRESSION: Kinking of J-tube in 2 locations. Possible right kidney stonesIleus.Ir Picc Insert Wo Por t Over 5 Years Wo ImgResult Date: 04/01/2019IR PICC INSERT WO PORT OVER 5 YEARS WO IMG CLINICAL INDICATION PROVIDED.:"midline." Medical necessity f or vascular access. PROCEDURE: After beinginformed of the risks, benefits, po tential alternatives to the procedure theinformed consent was obtained. The pa tient was placed on the table the supineposition. The right upper extremit y was prepped and draped in the normal sterilefashion. Ultrasound interrogation was performed of the right upper extremity.Images were obtained. A locat ion was chosen over the right brachial vein abovethe antecubital fossa. Lidocaine so lution was used to anesthetize the scan.Access was gained under ultrasound guidance using a 21-gauge thin-walled needle.A 0.018 a wire was advanced under fluoroscopic guidance into the right axillaryvein. The needle was exchanged o lani a wire for the midline dilator and sheath.The dilator and wire were removed leaving the sheath in situ. Through the sheatha 5 Congolese double-lumen 20 cm midl ine catheter was placed. The peel-away sheathwas removed. The catheter was sewn into position using 2-0 silk sutures. Thepatient tolerated the procedure. Ther e were no complications at the time of theprocedure. FINDINGS: Ultrasound inter rogation revealed a widely patent brachialvein above the antecubital fossa . A 5 Congolese dual-lumen 20 cm midline catheterwas placed. The tip was placed i n good position over the right axillary vein.IMPRESSION: 5 Congolese dual-lumen mid line catheter placed with tip positioned overthe right axillary vein.Ct Chest Abd Pelv Wo ContResult Date: 04/20/2019Referring Physician: MILI HILLS Patient Name: EVELIO CARLIN FINAL REPORTFROM [facility]AGING DAY [facility] EXAM: CT chest without contrast and CT abdomen pelviswithout contrast DATE OF EXAM: 2019-04-20 20:52:12 IMAGES: 681 HI STORY: reducedbreath sounds right lung, LLQ tenderness Comparison: 03/14/19 and FINDINGS: Axial images of the chest, abdomen and pelvis are obtained without ivcontrast. Chest: Mediastinal assessment is limited without contrast. Imagequality l imited by artifacts. Patchy lung opacities right greater than leftsimilar to prior. Small pleural effusions. Vascular including coronarycalcifications. Mediastinum appe ars shifted to the right. Left hemidiaphragm iselevated. Abdomen and pelvis: Nonspeci fic bowel pattern, with post surgicalchanges on the left. No definite free air. Organ assessment limited without ivcontrast. No significant free fluid or free air. No b owel obstruction or abscessseen. Catheter and air in the bladder which is not well ass essed. Left hiphardware partially seen with old fracture deformity. G-J tube is pres ent.Ventral hernia right of midline at abdominal wall with multiple small bowel loops without obstructive pattern. Mild right muscle swelling with possiblehematoma an d calcification at right groin image 117/120. Degenerative bonychanges. Multiple likel y chronic compression deformities at thoracic and lumbarspine. Bilateral L5-S1 spondyl olysis and anterolisthesis.IMPRESSION: Right greater than left lung infiltrates and e ffusions. No bowelobstruction. 2 cm hyperdensity at a bowel loop in left pel vis image 90/120,possibly ingested material, or a tube fragment or post surgical charles ge. Ventralabdominal hernia seen. See above. One or more of the following dose reduct iontechniques were used: automated exposure control, adjustment of the mA and/or kVa ccording to patient size, use of iterative reconstructive technique. THISDOCUMENT H BEEN ELECTRONICALLY SIGNED Marcie Edge MD 04/20/2019 22:43 GINA Jenkins.Please call Katja berger Wireless Consultant [phone]) with questions. This reportwas electronically signed by: Marcie Edge MD 04/20/2019 10:44 PMUs Retroperitoneum CompResult Date: 04/23/2019Retroperitoneal sonogram clinical indication acute kidney insufficiency S tudyis limited secondary to position of the patient and the patient'sinability t o cooperate. The abdominal aorta and inferior vena cava are obscured.The right kidney measures 9.2 cm. There is no evidence of hydronephrosis. Theleft kidney measures 9.5 cm. There is no evidence of hydronephrosis. Foleycatheter is seen wi thin the bladder.IMPRESSION: 1. Limited study. 2. No evidence of hydronephrosisX r Chest PortResult Date: 04/23/2019XR CHEST PORT CLINICAL INDICATION PROVIDED:. "Lani ification of PICC lineplacement." TECHNIQUE.: 2 AP views, chest. COMPARISON:. 04/19/2019 . FINDINGS:. Thetip of the vascular catheter projects over the right axilla, likely a midlinecatheter placed on 04/01/2019. The pericardial/cardiac silhouette is enlarg ed inthe transverse dimension. There is mild pulmonary vascular congestion andinterst itial edema. There is suggestion of small bilateral pleural effusions.Density in t he lung bases may represent adjacent atelectasis or superimposedlower lung in filtrates. Follow-up radiographs are recommended.IMPRESSION:. 1. Midline cat heter projecting over the right axilla. 2. Mildcongestive failure with interstitial edema and small bilateral pleuraleffusions.Xr Chest PortResult Pan e: 04/19/2019History: Respiratory difficulty. FINDINGS: A frontal portable view of the chestis submitted for interpretation and is compared to the prior study of04/06/2019 . EKG leads overlie the chest. A right-sided midline catheter is notedin situ. The ca rdiac silhouette measures at the upper limits of normal. There ispatchy opacity noted at the lung bases, left greater than right, which may beinfiltrative or atelectatic in nature. A small left pleural effusion is noted.Mediastinal and hilar structures a re unremarkable.IMPRESSION: Basilar infiltrative change left greater than ri ght. Small leftpleural effusion.Xr Chest PortResult Date: 04/06/2019CHEST one vie w HISTORY: Pneumonia. COMPARISON: 03/25/2019. There is a poorinspiratory effort which compromises this interpretation. A repeat study issuggested. There is discoid atel ectasis and/or subsegmental left lower lobeatelectasis along the left hemidiaph ragm. .There is no gross evidence ofcongestion, effusions or pneumothorax. IMPRESSION: Possible left lower lobe atelectasis. Poor inspiratory effort.Xr Chest PortResult Date: 03/25/2019CHEST one view HISTORY: Fever. Reflux. Gastrostomy . COMPARISON: 03/11/2019.There is a poor inspiratory effort which compromises thi s interpretation. Arepeat study is suggested. There is discoid atelectasis and/or lef t lower lobeinfiltrate.There is no gross evidence of congestion, other infiltrate s,effusions or pneumothorax.IMPRESSION: Possible left lower lobe infiltrate. Poo r inspiratory effort.Duplex Upper Ext Venous LeftResult Date: 04/23/2019DUPLEX UPPER EX TREMITY-VENOUS LEFT HISTORY: Swelling left upperextremity-evaluate for DVT PRIOR: Mireya valdovinos: Most recent February 10, 2019: "Noevidence of deep vein thrombosis." TE CHNICAL FACTORS: High resolution lineargrayscale, color-flow and Doppler evaluation of the left upper extremity wasperformed from the neck to the antecu bital fossa. FINDINGS: Normal antegradeflow, compressibility of the deep venous vascu lature, except for the internaljugular and subclavian veins due to their positions/ anatomic location, as wellas augmentation of flow/phasicity is identified within the visualized portionsof the deep venous system. No filling defects are identified that w ould besuspicious for, or lead customer service representative of DVT.IMPRESSION: 1. No sonographic findin gs suggestive of thrombosis within thevisualized portions of the deep venou s system of the left upper extremity.Medications:Current Facility-A dministered MedicationsMedication Dose Route Frequency albuterol-ipratropium (DUO-NE B) 2.5 MG-0.5 MG/3 ML 3 mL Nebulization Q6HWA RT acetylcysteine (MUCOMYST) 100 mg/mL (10 %) nebulizer solution 400 mg 4 mLInhalation TID RT miconazole (MICOTIN ) 2 % cream Topical BID acetaminophen (TYLENOL) tablet 650 mg 650 mg Oral Q4H PRN vancomycin (VANCOCIN) 1,000 mg in 0.9% sodium chloride 250 mL IVPB 1,000 mgInt raVENous Q12H sodium chloride (NS) flush 5-10 mL 5-10 mL IntraVENous PRN budeso nide (PULMICORT) 500 mcg/2 ml nebulizer suspension 500 mcg NebulizationBID RT pantoprazole (PROTONIX) 40 mg in 0.9% sodium chloride 10 mL injection 40 mgIntraVENo us DAILY cinacalcet (SENSIPAR) tablet 60 mg 60 mg Oral DAILY ALPRAZolam (XANAX) tab let 0.5 mg 0.5 mg Per G Tube QHS heparin (porcine) injection 5,000 Units 5,000 U nits SubCUTAneous Q12H lamoTRIgine (LaMICtal) tablet 50 mg 50 mg Per G Tub e Q12H dextrose 5 % - 0.45% NaCl infusion 70 mL/hr IntraVENous CONTINUOUS piperac illin-tazobactam (ZOSYN) 3.375 g in 0.9% sodium chloride (MBP/ADV) 100mL MBP 3.3 75 g IntraVENous T1NOpehzj Problems: Pneumonia (11/08/2018) Acute hypoxemic r espiratory failure (HCC) (03/25/2019) COPD with acute exacerbation (HCC) (04/19/2019) Acute on chronic respiratory failure with hypoxia and hypercapnia (HCC)(04/19/2019) Scrotal rash (04/21/2019)Assessment:1 ACUTE HYPERCAPNIC AND HYPOXIC RESPIRA TORY FAILURE DUE TO SEVERECOPD / PNEUMONIA1. ATELECTASIS L L L2. SEVER E COPD 3. MENTAL RETARDATION4. PNEUMONIA 5. SEPSIS L A = 2.56. METABOLIC ENCE PHALOPATHY7. HX P. E 8. 9 AC RESP DISTRESS9. BACTEREMIA G + COCCI10. FLU ID OVER LOAD11. POSSIBLE 2 CM SEGMENT OF TUBE IN ILEUM EPR RADIOLOGY ON CATSCAN REPORT Plan: 1.BIPAP SUPPORT IPAP = 14 CM , EPAP= 7 CM ,RATE = 20 . MT FIO2 = 70 %2. DUO NEB Q 4 H3. MUCOMYST 10 % VIA MINI NEB Q 8 H4. IV ZOSYN AN D VANCOMYCIN 5. CONT BIPAP SUPPORT AT NIGHT , DISCUSSED WITH STAFF , ORDERS FORBIOPAP GIVEN6. LASIX 20 MG I V P NOW7. DISCUSSED WITH RN ON BED SIDE Krystian cannon MD F.C.C.P.April 23, 20197:37 PM Name Value Range Interpretation Code Description Data [facility](s) Supporting Document(s ) ID Date Data Source [id number] 04/23/2019 07:28:09 PM EST [facility] - [facility] Bedside and Verbal shift change report carol Robles RN (oncoming nurse) byAde Salazar RN (offgoing nurse). Report includ ed the following information SBAR,Kardex, MAR, Recent Results and Cardiac Rhythm. Name Value Range Interpretation Code Description Data [facility](s) Supporting Document(s ) ID Date Data Source [id number] 04/23/2019 07:22:10 PM [facility] XR CHEST PORTCLINICAL INDICATION PROVIDE D:. "Verification of PICC line placement."TECHNIQUE.: 2 AP views, chest .COMPARISON:. 04/19/2019.FINDINGS:. The tip of the vascular catheter projects over the right axilla, likely amidline catheter placed on 04/01/2019.The pericardial/cardiac si lhouette is enlarged in the transverse dimension.There is mild pulmonary vascul ar congestion and interstitial edema. There issuggestion of small bilateral pleural effusions. Density in the lung bases mayrepresent adjacent atelectasis or sup erimposed lower lung infiltrates. Follow-upradiographs are recommended. IM PRESSION:.1. Midline catheter projecting over the right axilla.2. Mild congestive failure with interstitial edema and small bilateral pleuraleffusions. Signing date /time: 04/23/2019 7:22 PMSigned by: ELIZABETH FARR Name Value Range Interpretation Code Description Data [facility] r[facility](s) Supporting Document(s ) ID Date Data Source [id number] 04/23/2019 03:28:03 PM [facility] GI PROGRESS NOTENAME: Evelio Shukla hbeinDOB: 1950MRN: [id number]:Patient is tolerating tube feeds. Main port is not functioning and receivingfeeds through the side port. Th baldo are well tolerated. Surgery contemplatingperforming a surgical jejun ostomy.In the mean time will continue PEG/PEJ tubefeeds.Objective:VITALS:Last 24hrs VS reviewed since prior progress note. Most recent are:Visit VitalsBP 111/80 (BP 1 L ocation: Left arm, BP Patient Position: At rest)Pulse 87Temp 98.5 F (36.9 C)Resp 20Ht 5' 2" (1.575 m)Wt 61 kg (134 lb 8 oz)SpO2 98%BMI 24.60 kg/m Intake/Output Summary (Last 24 hours) at 04/23/2019 1522Last data filed at 04/23/2019 0649Gross per 24 hourIntake -Output 1150 mlNet -1150 mlPHYSICAL EXAM:Lungs: CTA Bi laterally.Heart: Regular rhythm,Abdomen: Soft, Non distended, Non tender. (+)[place] el sounds, no HSMLab Data Reviewed:No results for input(s): WBC, HGB, HCT, PLT, HGBEXT , HCTEXT, PLTEXT in the last72 hours.Recent Labs 04/23/200619NA 141K 3.1*CL 105CO2 31BUN 17CREA 1.36*GLU 140*CA 8.9No results for input(s): SGOT, AP, TBIL, TP, ALB, G LOB, GGT, AML, LPSE in thelast 72 hours.No lab exists for component: SGPT, AMYP, HLPSE Pat ient Active Problem ListDiagnosis Code Parae sophageal hiatal hernia K44.9 COPD (chronic obstructive pulmonary disease) ([facility]) J44 .9 Acute respiratory distress R06.03 Pneumonia J18.9 COPD exacerbation ([facility]) J44.1 Sepsis due to undetermined organism ([facility]) A41.9 Generalized anxiety disorde r F41.1 Acute respiratory failure with hypoxia ([facility]) J96.01 Pneumonia involvin g right lung J18.9 Hyponatremia E87.1 SOB (shortness of breath) R06.02 Pressure i njury of right heel, stage [address]) L89.612 Leg wound, right, initial encounter S81. 801A Acute hypoxemic respiratory failure ([facility]) J96.01 COPD with acute exacerbati on ([facility]) J44.1 Acute on chronic respiratory failure with hypoxia and hypercapnia ([facility])J96.21, J96.22 Scrotal rash W93Toxfuhewua: Tube feeds well toleratedPlan: Continu e tube feeds through PEG/PEJ Await ongoing surgical eval.Signed By: Nikos Martinez MD 04/23/2019 3:22 PM Name Value Range Interpretation Code Description Data [facility] rce(s) Supporting Document(s ) ID Date Data Source [id number] 04/23/2019 01:36:27 PM EST [facility] Patient placed back on Bipap as per Dr. Monae's orders. Bipap @ 26/10,45%.Routine Bipap check done. Patient with an under nose mask. Two finger techniqueapplied to assess the tightness of mask.. Name Value Range Interpretation Code Description Data Harriett rce(s) Supporting Document(s ) ID Date Data Source [id number] 04/23/2019 01:15:09 PM [facility] Problem: Falls - Risk ofGoal: *Absence o f FallsDescriptionDocument Samra Fall Risk and appropriate interventions in the jhon wsheet.Outcome: Progressing Towards GoalNote: Fall Risk Interventions:Mentation Interv entions: Bed/chair exit alarmMedication Interventions: Bed/chair exit alarmElimi nation Interventions: Bed/chair exit alarmProblem: Pressure Injury - Risk ofG oal: *Prevention of pressure injuryDescriptionDocument Butch Scale a nd appropriate interventions in the flowsheet.Outcome: Progressing Towards G oalNote: Pressure Injury Interventions:Sensory Interventions: Ass ess changes in LOCMoisture Interventions: Internal/External urinary devicesActivit y Interventions: Pressure redistribution bed/mattress(bed type)Mobility Intervent ions: Pressure redistribution bed/mattress (bed type)Nutrition Interventions: Docum ent food/fluid/supplement intakeFriction and Shear Interventions: Apply protective ba rrier, creams andemollientsProblem: Tissue Perfusion - Cardiopulmonary, AlteredGoal : *Optimize tissue perfusionOutcome: Progressing Towards GoalGoal: *Absence o f hypoxiaOutcome: Progressing Towards GoalProblem: Impaired Skin Integrity/Pre ssure Injury TreatmentGoal: *Improvement of Existing Pressure InjuryOutcome: Progres sing Towards GoalGoal: *Prevention of pressure injuryDescriptionDocument Brade n Scale and appropriate interventions in the flowsheet.Outcome: Progressing Towards G oalNote: Pressure Injury Interventions:Sensory Interventions: Ass ess changes in LOCMoisture Interventions: Internal/External urinary devicesActivit y Interventions: Pressure redistribution bed/mattress(bed type)Mobility Intervent ions: Pressure redistribution bed/mattress (bed type)Nutrition Interventions: Docum ent food/fluid/supplement intakeFriction and Shear Interventions: Apply protective ba rrier, creams andemollientsProblem: Nutrition DeficitGoal: *Optimize nutritional statu sDescriptionPt meeting 80% nutrient needs within 3-7 daysOutcome: Progressing [place] rds Goal Name Value Range Interpretation Code Description Data [facility] rce(s) Supporting Document(s ) ID Date Data Source [id number] 04/23/2019 10:59:03 AM EST [facility] - [facility] Retroperitoneal sonogram clinical indica tion acute kidney insufficiencyStudy is limited secondary to position of t he patient and the patient'sinability to cooperate. The abdominal aorta and infer ior vena cava are obscured.The right kidney measures 9.2 cm. There is no evidence of hydronephrosis. Theleft kidney measures 9.5 cm. There is no evidence of hydronephros is. Foleycatheter is seen within the bladder.IMPRESSION:1. Limited study.2. N o evidence of hydronephrosis Signing date/time: 04/23/2019 10:59 AMSigned by: ROSEANNE FARRELL Name Value Range Interpretation Code Description Data [facility] rce(s) Supporting Document(s ) ID Date Data Source [id number] 04/23/2019 01:19:18 PM EST [facility] Name Value Range Interpretation Description Data Sup porting Code Source(s) Document(s ) Eosinophils NONE [facility] - [facility] [#/area] in [facility] by Microscopy high power field ID Date Data Source [id number] 04/23/2019 12:46:17 PM EST [facility] Name Value Range Interpretation Description Data Sup porting Code Source(s) Document(s ) Color of Urine YEL [facility] - [facility] Appearance of CLEAR [facility] - Urine [facility] Specific gravity 1.010 1.003-1. [facility] - of Urine by 030 Good Refractometry [facility] pH of Urine by 6.0 4.6-8.0 [facility] - Test strip [facility] Protein NEG [facility] - [Mass/volume] in Good Urine by Test [facility] Hospital Glucose NEG [facility] - [Mass/volume] in Good Urine by Taoist Automated test [facility] strip Ketones NEG [facility] - [Presence] in Good Urine by Taoist Automated test [facility] strip Bilirubin.total NEG [facility] - [Presence] in Good Urine [facility] Hemoglobin NEG Abnormal (applies [facility] - [Presence] in to non-numeric Good Urine by Test results) [facility] Hospital Urobilinogen 0.2 0.2-1.0 [facility] - [Presence] in EU/dL Good Urine by [facility]ist Automated test Hospital strip Nitrite NEG [facility] - [Presence] in Good Urine by [facility]ist Automated test Hospital strip Leukocyte NEG Abnormal (applies [facility] - esterase to non-numeric Good [Presence] in results) Taoist Urine by [facility] Automated test strip Leukocytes 0-5 [facility] - [Presence] in Good Urine sediment Taoist by [facility] microscopy Erythrocytes 0-2 [facility] - [#/area] in Good Urine sediment Taoist by [facility] high power field Epithelial cells 0-10 [facility] - [#/area] in Good Urine sediment Taoist by [facility] high power field Bacteria NONE [facility] - [Presence] in Good Urine sediment Taoist by [facility] microscopy Casts [Presence] NONE [facility] - in Urine Good sediment by [facility] Crystals NONE [facility] - [Presence] in Good Urine sediment Taoist by [facility] microscopy ID Date Data Source [id number] 04/23/2019 12:45:27 PM EST [facility] - [facility] Name Value Range Interpretation Description Data Sup porting Code Source(s) Document(s ) Sodium 86 MMOL/L 40-220 [facility] - Good [Moles/volu Taoist me] in Hospital Urine ID Date Data Source [id number] 04/23/2019 09:41:25 AM EST [facility] - Good [facility] Consult NotePatient: Evelio Carlin Sex: male DOA: 04/19/2019Date of : 1950 A ge: 68 y.o. LOS: LOS: 4 daysHPI:Evelio Carlin is a 68 y.o. 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 No pertinent family history.So cial HistorySocioeconomic History Marital status: SINGLE Spouse name: Not on file Number of children: Not on file Years of education: Not on file Highest educatio n level: Not on fileTobacco Use Smoking status: Never Smoker Smokeless tobacco: Never UsedSubstance and Sexual Activity Alcohol use: No Drug use: NoOther Topic s ConcernPrior to Admission medicationsMedication Sig Start Date End Date Taking? Authorizing ProviderlamoTRIgine (LAMICTAL) 25 mg rapid dissolve tablet T RADHAMES 2 TABLETS BY MOUTH EVERY12 HOURS 03/18/19 Provider, Ediezinc oxide 20 % oin tment Apply to affected area as needed for Skin Irritation.Provider, Kalyan razole (PRILOSEC) 2 mg/mL susp 2 mg/mL oral suspension (compounded) Take 20mL by sarah th daily. 04/06/19 PaulmaChristos obrien MDheparin sodium,porcine (HEPARIN, PORCI NE,) 5,000 unit/mL injection 1 mL bySubCUTAneous route every twelve (12) h ours every twelve (12) hours. 03/17/19Mili Hills DOmultivitamin (MULTI-DELYN, WE LLESSE) liqd 5 mL by Per G Tube route daily.03/17/19 Mili Hills DOaceta minophen (TYLENOL) 32MG/ML soln solution Take 20.3 mL by mouth every four(4) hours as needed for Pain or Fever. 03/17/19 Mili Hills DOacetylcysteine (MUCOMYST) 100 mg/mL (10 %) nebulizer solution Take 4 mL byinhalation two (2) times a day. Pro vider, Historicalclorazepate (TRANXENE) 3.75 mg tablet 1 Tab by Per G Tube route nig tly. MaxDaily Amount: 3.75 mg. 12/30/18 Mili Hills DOcinacalcet (SENSIPAR) 30 mg tablet Take 2 Tabs by mouth daily.Patient taking differently: 30 mg daily. Via G tube 12/30/18 Mili Hills DOalbuterol-ipratropium (DUO-NEB ) 2.5 mg-0.5 mg/3 ml nebu 3 mL by Nebulizationroute every six (6) hours. E very 6 hours while awakePatient taking differently: 3 mL by Nebulization route every four (4) hours asneeded. Every 6 hours while awake 12/30/18 Mili Hills D Obudesonide (PULMICORT) 0.5 mg/2 mL nbsp 2 mL by Nebulization route two (2) timesa day . 12/30/18 Mili Hills DONo Known AllergiesCurrent Facility-Administered M edicationsMedication Dose Route Frequency albuterol-ipratropium (DUO-NEB) 2.5 MG-0 .5 MG/3 ML 3 mL Nebulization Q6HWA RT acetylcysteine (MUCOMYST) 100 mg/mL (10 %) nebulizer solution 400 mg 4 mLInhalation TID RT miconazole (MICOTIN) 2 % cream Topical BID acetaminophen (TYLENOL) tablet 650 mg 650 mg Oral Q4H PRN vancomycin (VANCOCIN) 1,000 mg in 0.9% sodium chloride 250 mL IVPB 1,000 mgIntraVENous Q12H s odium chloride (NS) flush 5-10 mL 5-10 mL IntraVENous PRN budesonide (PULMICORT) 500 mcg/2 ml nebulizer suspension 500 mcg NebulizationBID RT pantoprazole (PROTON IX) 40 mg in 0.9% sodium chloride 10 mL injection 40 mgIntraVENous DAILY cinac alcet (SENSIPAR) tablet 60 mg 60 mg Oral DAILY ALPRAZolam (XANAX) tablet 0.5 mg 0.5 mg Per G Tube QHS heparin (porcine) injection 5,000 Units 5,000 Units SubCU TAneous Q12H lamoTRIgine (LaMICtal) tablet 50 mg 50 mg Per G Tube Q12H dextrose 5 % - 0.45% NaCl infusion 70 mL/hr IntraVENous CONTINUOUS piperacillin-cuba obactam (ZOSYN) 3.375 g in 0.9% sodium chloride (MBP/ADV) 100mL MBP 3.375 g In traVENous Z6OElpsiz of SystemsGen: No fever, chills, malaise.Heent: No headache, rhin orrhea, sinus pain, neck pain/stiffness, sore throat.Heart: No cp, palps, pnd, + ortho pnea.Resp: No cough + shortness of breath.GI: No n/v/d/c. No melena or hematochezia. : No dysuria or hematuria.Derm: No rash, skin lesion or pruritis.Musc/skeletal: no bon e or joint complains.Vasc: No edema, cyanosis or claudication.Endo: No heat/cold intol erance, no polyuria,polydipsia or polyphagia.Neuro: No weakness or paresth esias.Heme: No epistaxis, hematemesis, melena, hematocheziaPhysical Exam:Visit VitalsBP 151/77 (BP 1 Location: Left arm, BP Patient Position: At rest)Pulse 79Temp 9 8.2 F (36.8 C)Resp 22Ht 5' 2" (1.575 m)Wt 61 kg (134 lb 8 oz)SpO2 91%BMI 24.60 kg/ m Physical Exam: General: Alert, , no distress, appears stated age. Head: Normocephalic, without obvious abnormality, atraumatic. Eyes : Conjunctivae/corneas clear. Nose: Nares normal. No drainage or sin us tenderness Throat: Lips, mucosa, and tongue normal Neck: Sup ple, symmetrical, trachea midline, no adenopathy,thyroid: no enlargem ent/tenderness/nodules, no carotid bruit and no JVD. Lungs: Clear to auscu ltation bilaterally. Chest Wall: No tenderness or deformity. Heart : Regular rate and rhythm, S1, S2 normal, no murmur, click,rub or gallop. Ab domen: Soft, non-tender. Bowel sounds normal. No masses, No organomegaly. Ex tremities: Extremities normal, atraumatic, no cyanosis or edema. Neurologic: Maria Isabel ble.Labs:Recent Results (from the past 24 hour(s))VANCOMYCIN, TROUGH Collection Ti me: 04/22/19 11:50 AMResult Value Ref Range Vancomycin,trough 23.6 (HH) 10 - 20 ug/m LMETABOLIC PANEL, BASIC Collection Time: 04/23/19 7:19 AMResult Value Ref Range Sodium 141 136 - 145 mmol/L Potassium 3.1 (L) 3.5 - 5.1 mmol/L Chloride 105 98 - 107 m mol/L CO2 31 21 - 32 mmol/L Anion gap 8 (L) 10 - 20 mmol/L Glucose 140 (H) 74 - 106 mg/dL BUN 17 7 - 18 mg/dL Creatinine 1.36 (H) 0.70 - 1.30 mg/dL GFR est AA >60 >60 ml/ min/1.73m2 GFR est non-AA 55 (L) >60 ml/min/1.73m2 Calcium 8.9 8.5 - 10.1 mg/ dLRadiology:Xr Abd (kub)Result Date: 04/05/2019XR ABD (KUB) CLINICAL INDICATI ON PROVIDED:. "assess J tube position."TECHNIQUE.: An initial AP imag e of the abdomen was acquired. Additional APimages of the abdomen were acquired af ter the hand-injection of a small volumeof radiopaque contrast by the patient's mason se into the patient's J-tube.COMPARISON:. 04/02/2019. FINDINGS:. The tip of the 2 projects over the midabdomen, at the level of the mid jejunum. Post injection images d emonstrateopacification of loops of mid small bowel. There is no extraluminal contrast appreciated. A large volume of stool projects over the distal colon/rectum.Densities p roject over the lower lungs, right greater than left. Considercorrelation with ches t radiographs.IMPRESSION:. Injected radiopaque contrast appears to be contai nataly within thelumen of the mid small bowel. There is no evidence of extraluminal con trast.Additional findings and recommendations as above.Xr Abd (kub)Result Date: 2018KUB 2 view(s) History: Evaluate J-tube. Comparison: 11/22/2018. There is a newJ-t ube overlying the mid abdomen with kinking involving its superior andinferior porti on overlying the mid abdomen. These findings were discussed withmale nurse Mroa at 3:4 0 PM today.. There is mild ileus of the small bowel butthere is no evidence of obstruc tion, radiopaque gallstones, or left kidneystones or an appendicolith. There are possible right kidney stones. Absence ofan appendicolith it does not exclude a ppendicitis. CT is suggested if clinicallyindicated. Old rib fractures a re noted.IMPRESSION: Kinking of J-tube in 2 locations. Possible right kidney stonesI leus.Ir Picc Insert Wo Port Over 5 Years Wo ImgResult Date: 04/01/2019IR PICC INSERT WO PORT OVER 5 YEARS WO IMG CLINICAL INDICATION PROVIDED.:"midline." Medical necessity for vascular access. PROCEDURE: After beinginformed of the risks, benefi ts, potential alternatives to the procedure theinformed consent was obtained. The pa tient was placed on the table the supineposition. The right upper extremit y was prepped and draped in the normal sterilefashion. Ultrasound interrogation was performed of the right upper extremity.Images were obtained. A locat ion was chosen over the right brachial vein abovethe antecubital fossa. Lidocaine so lution was used to anesthetize the scan.Access was gained under ultrasound guidance using a 21-gauge thin-walled needle.A 0.018 a wire was advanced under fluoroscopic guidance into the right axillaryvein. The needle was exchanged o lani a wire for the midline dilator and sheath.The dilator and wire were removed leaving the sheath in situ. Through the sheatha 5 Congolese double-lumen 20 cm midl ine catheter was placed. The peel-away sheathwas removed. The catheter was sewn into position using 2-0 silk sutures. Thepatient tolerated the procedure. Ther e were no complications at the time of theprocedure. FINDINGS: Ultrasound inter rogation revealed a widely patent brachialvein above the antecubital fossa . A 5 Congolese dual-lumen 20 cm midline catheterwas placed. The tip was placed i n good position over the right axillary vein.IMPRESSION: 5 Congolese dual-lumen mid line catheter placed with tip positioned overthe right axillary vein.Ct Chest Abd Pelv Wo ContResult Date: 04/20/2019Referring Physician: MILI HILLS Patient Name: EVELIO CARLIN FINAL REPORTFROM [facility] EXAM: CT chest without contrast and CT abdomen pelviswithout contrast DATE OF EXAM: 2019-04-20 20:52:12 IMAGES: 681 HI STORY: reducedbreath sounds right lung, LLQ tenderness Comparison: 03/14/19 and FINDINGS: Axial images of the chest, abdomen and pelvis are obtained without ivcontrast. Chest: Mediastinal assessment is limited without contrast. Imagequality l imited by artifacts. Patchy lung opacities right greater than leftsimilar to prior. Small pleural effusions. Vascular including coronarycalcifications. Mediastinum appe ars shifted to the right. Left hemidiaphragm iselevated. Abdomen and pelvis: Nonspeci fic bowel pattern, with post surgicalchanges on the left. No definite free air. Organ assessment limited without ivcontrast. No significant free fluid or free air. No b owel obstruction or abscessseen. Catheter and air in the bladder which is not well ass essed. Left hiphardware partially seen with old fracture deformity. G-J tube is pres ent.Ventral hernia right of midline at abdominal wall with multiple small bowel loops without obstructive pattern. Mild right muscle swelling with possiblehematoma an d calcification at right groin image 117/120. Degenerative bonychanges. Multiple likel y chronic compression deformities at thoracic and lumbarspine. Bilateral L5-S1 spondyl olysis and anterolisthesis.IMPRESSION: Right greater than left lung infiltrates and e ffusions. No bowelobstruction. 2 cm hyperdensity at a bowel loop in left pel vis image 90/120,possibly ingested material, or a tube fragment or post surgical charles ge. Ventralabdominal hernia seen. See above. One or more of the following dose reduct iontechniques were used: automated exposure control, adjustment of the mA and/or kVa ccording to patient size, use of iterative reconstructive technique. THISDOCUMENT H BEEN ELECTRONICALLY SIGNED Marcie Edge MD 04/20/2019 22:43 GINA VerdePlease call Katja berger Wireless Consultant [phone]) with questions. This reportwas electronically signed by: Marcie Edge MD 04/20/2019 10:44 PMXr Chest PortResult Date: 04/19/2019Hist ory: Respiratory difficulty. FINDINGS: A frontal portable view of the chestis sub mitted for interpretation and is compared to the prior study of04/06/2019. EKG leads overlie the chest. A right-sided midline catheter is notedin situ. The cardiac si lhouette measures at the upper limits of normal. There ispatchy opacity noted at the lung bases, left greater than right, which may beinfiltrative or atelectatic in nature. A small left pleural effusion is noted.Mediastinal and hilar structures a re unremarkable.IMPRESSION: Basilar infiltrative change left greater than ri ght. Small leftpleural effusion.Xr Chest PortResult Date: 04/06/2019CHEST one vie w HISTORY: Pneumonia. COMPARISON: 03/25/2019. There is a poorinspiratory effort which compromises this interpretation. A repeat study issuggested. There is discoid atel ectasis and/or subsegmental left lower lobeatelectasis along the left hemidiaph ragm. .There is no gross evidence ofcongestion, effusions or pneumothorax. IMPRESSION: Possible left lower lobe atelectasis. Poor inspiratory effort.Xr Chest PortResult Date: 03/25/2019CHEST one view HISTORY: Fever. Reflux. Gastrostomy . COMPARISON: 03/11/2019.There is a poor inspiratory effort which compromises thi s interpretation. Arepeat study is suggested. There is discoid atelectasis and/or lef t lower lobeinfiltrate.There is no gross evidence of congestion, other infiltrate s,effusions or pneumothorax.IMPRESSION: Possible left lower lobe infiltrate. Poo r inspiratory effort.Duplex Upper Ext Venous LeftResult Date: 04/23/2019DUPLEX UPPER EX TREMITY-VENOUS LEFT HISTORY: Swelling left upperextremity-evaluate for DVT PRIOR: Mireya valdovinos: Most recent February 10, 2019: "Noevidence of deep vein thrombosis." TE CHNICAL FACTORS: High resolution lineargrayscale, color-flow and Doppler evaluation of the left upper extremity wasperformed from the neck to the antecu bital fossa. FINDINGS: Normal antegradeflow, compressibility of the deep venous vascu lature, except for the internaljugular and subclavian veins due to their positions/ anatomic location, as wellas augmentation of flow/phasicity is identified within the visualized portionsof the deep venous system. No filling defects are identified that w ould besuspicious for, or lead customer service representative of DVT.IMPRESSION: 1. No sonographic findin gs suggestive of thrombosis within thevisualized portions of the deep venou s system of the left upper extremity.AssessmentActive Problems: Pn eumonia (11/08/2018) Acute hypoxemic respiratory failure (HCC) (03/25/2019) COPD with acute exacerbation (HCC) (04/19/2019) Acute on chronic respiratory failure wi th hypoxia and hypercapnia (HCC)(04/19/2019) Scrotal rash (04/21/2019) AKIPlanBladder scanRenal USUrine eosinophilsUrine sodiumMonitor I&ODaily renal panel. Name Value Range Interpretation Code Description Data Harriett rce(s) Supporting Document(s ) ID Date Data Source [id number] 04/23/2019 08:59:38 AM [facility] Patient taken off Bipap and placed on 4l n/c. At this time patient's rr=24,spo2 91%, HR 83. No skin breakdown noted from Bipa p mask. Will continue tomonitor patient's respiratory status. Name Value Range Interpretation Code Description Data Harriett rce(s) Supporting Document(s ) ID Date Data Source [id number] 04/23/2019 08:19:09 AM [facility] DUPLEX UPPER EXTREMITY-VENOUS LEFTHISTOR Y: Swelling left upper extremity- evaluate for DVTPRIOR: Multiple: Most recent February 10, 2019: "No evidence of deep veinthrombosis."TECHNICAL FACTORS: High resolution linear grayscale, color-flow and Dopplerevaluation of the left upper extr emity was performed from the neck to theantecubital fossa.FINDINGS: Normal an tegrade flow, compressibility of the deep venous vasculature,except for the digital media intern al jugular and subclavian veins due to theirpositions/anatomic location, as wel l as augmentation of flow/phasicity isidentified within the visualized porti ons of the deep venous system.No filling defects are identified that would be christa picious for, orrepresentative of DVT.IMPRESSION:1. No sonographic finding s suggestive of thrombosis within the visualizedportions of the deep venous sy stem of the left upper extremity. Signing date/time: 04/23/2019 8:19 AMSigned by: ALKA JONES Name Value Range Interpretation Code Description Data Harriett rce(s) Supporting Document(s ) ID Date Data Source [id number] 04/23/2019 01:30:35 PM [facility] Name Value Range Interpretation Description Data Sup porting Code Source(s) Document(s ) Creatine 52 U/L 39-308 [facility] - Good kinase Taoist [Enzymatic Hospital activity/volu me] in Serum or Plasma ID Date Data Source [id number] 04/23/2019 01:30:35 PM EST [facility] Name Value Range Interpretation Description Data Sup porting Code Source(s) Document(s ) NOLOINC 2.990 0.360-3.7 [facility] - Good uIU/mL [address] [place] [address] This assay result should be used in conj unction with information available from clinical evaluation and other diagnostic procedures. This should not be used as a cancer screening test.Test performed usi Parrable chemiluminescence technologyKit silver holloware assembler: [employer] ID Date Data Source [id number] 04/23/2019 01:30:35 PM [facility] Value Range Interpretation Description Data Sup porting Code Source(s) Document(s ) Urate 3.6 mg/dL 3.5-7.2 [facility] - Good [Mass/volu Taoist me] in Hospital Serum or Plasma ID Date Data Source [id number] 04/23/2019 09:10:20 AM EST [facility] Value Range Interpretation Description Data Sup porting Code Source(s) Document(s ) Sodium 141 136-145 [facility] - Good [Moles/volume] mmol/L Taoist in Serum or Hospital Plasma Potassium 3.1 3.5-5.1 Below low normal [facility] - Good [Moles/volume] mmol/L Taoist in Serum or Hospital Plasma Chloride 105 98-107 [facility] - Good [Moles/volume] mmol/L Taoist in Serum or Hospital Plasma Carbon 31 21-32 [facility] - Good dioxide, total mmol/L Taoist [Moles/volume] Hospital in Serum or Plasma Anion gap in 8 mmol/L 10-20 Below low normal [facility] - Go od Serum or Taoist Plasma Hospital Glucose 140 74-106 Above high normal [facility] - Good [Mass/volume] mg/dL Taoist in Serum or Hospital Plasma Urea nitrogen 17 mg/dL 7-18 [facility] - Good [Mass/volume] Taoist in Serum or Hospital Plasma Creatinine 1.36 0.70-1.3 Above high normal [facility] d [Mass/volume] mg/dL 0 Taoist in Serum or Hospital Plasma RESULTS CONFIRMED Glomerular filtration >60 [facility] Good rate/1.73 sq M predicted [facility] among blacks [Volume Rate/Area] in Serum or Plasma by Creatinine-based formula (MDRD) Glomerular filtration 55 >60 Below low normal [facility] - Good rate/1.73 sq M predicted ml/min/1.73m2 S [facility] among non-blacks [Volume Rate/Area] in Serum or Plasma by Creatinine-based formula (MDRD) (NOTE)Estimated GFR is calculated using the Modification of Diet in RenalDisease (MDRD) Study equation, reported for both Americans(GFRAA) and non- Americans (GFRNA), and normalized to 1.7 5r8chjk surface area. The physician must decide which value applies tothe patient . The MDRD study equation should only be used inindividuals age 18 or older. It has no t been validated for thefollowing: women, patients with serious comorbid co nditions,or on certain medications, or persons with extremes of body size,muscl e mass, or nutritional status. Calcium [Mass/volume] in Serum 8.9 mg/dL 8.5-10.1 [facility] or Plasma Hospital ID Date Data Source [id number] 04/23/2019 07:11:33 AM EST [facility] Bedside and Verbal shift change report carol Gross RN (oncoming nurse) Shawn PITTS (offgoing nurse). Report included the following information SBAR,Kardex, Intake/Output, MAR, Recent Results and Med Rec Status. Name Value Range Interpretation Code Description Data Harriett rce(s) Supporting Document(s ) ID Date Data Source [id number] 04/23/2019 06:51:37 AM EST [facility] Progress NotePatient: Evelio Carlin Sex: male DOA: 04/19/2019Date of : 1950 A ge: 68 y.o. :[id number]:Reyes Carlin is 68 y.o. male who was transferred by EMS from [facility] withfever,h ypoxia, O2 SAT 83 % , hypotensive and tachypnea. Pt was unresponsive. Hewas p laced on BIPAP.Today, he is awake and alert. He is nonverbal and unable to provide a history.He is sandhya TFHe has positive blood cultures with GPC in clusters Anaerobic bottle. RN reporting 500 cc in bladder with straight cath this morning.Bladder scan showing 200+ cc urine in bladder He has medical history of Dysphagia, recurrent aspiration pneumonia, s/p g/tplacement 11/17/18 and conversion to jtube on 02/07/19,hyp erlipidemia, hyperparathyroid, unspecified,seizure, large hiatal hernia ,anxiety disorder, personal history of pulmonary embolus,COPD, GERD,Schizophren ia unspecified, Kyphosis, Parkinson disease, Severe intellectualdisabilities, Contrac tures and Generalized muscle weakness. He had positioningof jejeunal feeding tube and endoclipping on 03/26/19. There was leaking of theTF, the tube was found wit h a crack defect.On 04/01/19 he had endoscopic placemetn of jtube over PEG a nd removal ofdefective tube. Kinking of the jtube was found on KUB with a large volu me ofstool within the distal colon/rectum. Pt was tolerating TF via the peg port andwa s discharged to snf and outpatient follow up.On 04/16/2019 pt had ambulatory proce dure with gi. Per GI, multiple unsuccessfulattempts to place PEJ. He is suggesting surgical placement for J tube placement.Will discuss with surgeon and possible get second opinion. D/W Dr Mills, he will provide a general nena geon's second opinion. 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 Pupils are equalNeck: Supple, symmetrical, no adenopathy, no carotid bruit and no JVD.Lungs: Clear to auscultation bilaterally. No Wheezing or Rhonchi. No rales.Chest wall: No Accessory muscle use.Heart: Regular rate and rhythm, n o murmur, or rubAbdomen: Positive reducibleventreal hernia, marvel peg, peg in place,non-tender. Not distended. Bowel sounds normal.Extremities: Positive swe lling LUE. No cyanosis. No clubbingSkin: Warm and dry. No rashes or lesions. No t JaundicedLymph nodes: Cervical, supraclavicular normal.Psych: Not anx ious or agitated.Neurologic: EOMs intact. No facial asymmetry. Non verbal. Alert and AwakeIntake and Output:Current Shift: No intake/output data recorded.Last three s hifts: 04/21 0701 - 04/22 1900In: -Out: 1250 [Urine:1250]Lab/Data Reviewed:Recent Day s:No results for input(s): WBC, HGB, HCT, PLT, HGBEXT, HCTEXT, PLTEXT in the last7 2 hours.No results for input(s): NA, K, CL, CO2, GLU, BUN, CREA, CA, MG, PHOS, ALB,T ELROY, TBILI, SGOT, ALT, INR, INREXT in the last 72 hours.No results for input(s): P H, PCO2, PO2, HCO3, FIO2 in the last 72 hours.CULTURE, BLOOD [[id number]] (Order [id number])MicrobiologyDate: 04/19/2019 Department: [facility] 3t Med Surg Released By/ Authorizing: Neeta Coleman NP (auto-released)Specimen Information: Blo od Component Value Flag Ref Range Units StatusSpecial Requests: FinalNO SPE CIAL REQUESTSGRAM STAIN FinalGRAM POSITIVE COCCI IN CLUSTERS ANAEROBIC BOT TLEGRAM STAIN FinalCALLED TO AND READ BACK BY ROB LEDEZMA RN, ED, AT 0 [phone] ON 04/20/19 TORISMIRAGLIACulture result: Abnormal FinalSTAPHYLOCOCCUS EPIDE RMIDISSusceptibilityStaphylococcus epidermidisAntibiotic Interpretation Seema ue Method CommentClindamycin ($) Resistant <=0.25 ug/mL MICErythromycin ($$$$) Resi stant >=8 ug/mL MICGentamicin ($) Susceptible <=0.5 ug/mL MICOxacillin Resistant >=4 u g/mL MICPenicillin G ($$) Resistant >=0.5 ug/mL MICVancomycin ($) Susceptible 2 ug /mL MICTetracycline Resistant >=16 ug/mL MICSusceptibilityStaphylococcus epidermi dis (1)Antibiotic Interpretation Method StatusClindamycin ($) Resistant ANTONIO Bessy lErythromycin ($$$$) Resistant ANTONIO FinalGentamicin ($) Susceptible ANTONIO Bessy lOxacillin Resistant ANTONIO FinalPenicillin G ($$) Resistant ANTONIO FinalVancomycin ($) S usceptible ANTONIO FinalTetracycline Resistant ANTONIO FinalCULTURE, BLOOD [[id number]] (Order [id number])MicrobiologyDate: 04/20/2019 Department: [facility] 3t Med Surg Released By/ Authorizing: Monica Gomez MD (auto-released)Specimen Information: Blo od Component Value Flag Ref Range Units StatusSpecial Requests: Preliminary NO SPECIAL REQUESTSCulture result: NO GROWTH 3 DAYS PreliminaryXr Abd (kub)Resul t Date: 04/05/2019XR ABD (KUB) CLINICAL INDICATION PROVIDED:. "assess J tube pos ition."TECHNIQUE.: An initial AP image of the abdomen was acquired. Additional APimage s of the abdomen were acquired after the hand-injection of a small volumeof radio paque contrast by the patient's nurse into the patient's J-tube.COMPARISON:. 2018. FINDINGS:. The tip of the 2 projects over the midabdomen, at the level of the mid jejunum. Post injection images demonstrateopacification of loops of mid small bowel. There is no extraluminal contrastappreciated. A large volume of s tool projects over the distal colon/rectum.Densities project over the lower lungs, right greater than left. Considercorrelation with chest radiograp hs.IMPRESSION:. Injected radiopaque contrast appears to be contained within thelumen of the mid small bowel. There is no evidence of extraluminal contrast.Additional find ings and recommendations as above.Xr Abd (kub)Result Date: 04/02/2019KUB 2 view(s ) History: Evaluate J-tube. Comparison: 11/22/2018. There is a newJ-tube overlyin g the mid abdomen with kinking involving its superior andinferior portion overlying t he mid abdomen. These findings were discussed withmale nurse Jacquelyn at 3:40 PM today.. Th ere is mild ileus of the small bowel butthere is no evidence of obstruction, radiopaqu e gallstones, or left kidneystones or an appendicolith. There are possible right kidney stones. Absence ofan appendicolith it does not exclude appendicitis. CT is sug gested if clinicallyindicated. Old rib fractures are noted.IMPRESSION: Kinking of J-tube in 2 locations. Possible right kidney stonesIleus.Ir Picc Insert Wo Por t Over 5 Years Wo ImgResult Date: 04/01/2019IR PICC INSERT WO PORT OVER 5 YEARS WO IMG CLINICAL INDICATION PROVIDED.:"midline." Medical necessity f or vascular access. PROCEDURE: After beinginformed of the risks, benefits, po tential alternatives to the procedure theinformed consent was obtained. The pa tient was placed on the table the supineposition. The right upper extremit y was prepped and draped in the normal sterilefashion. Ultrasound interrogation was performed of the right upper extremity.Images were obtained. A locat ion was chosen over the right brachial vein abovethe antecubital fossa. Lidocaine so lution was used to anesthetize the scan.Access was gained under ultrasound guidance using a 21-gauge thin-walled needle.A 0.018 a wire was advanced under fluoroscopic guidance into the right axillaryvein. The needle was exchanged o lani a wire for the midline dilator and sheath.The dilator and wire were removed leaving the sheath in situ. Through the sheatha 5 Congolese double-lumen 20 cm midl ine catheter was placed. The peel-away sheathwas removed. The catheter was sewn into position using 2-0 silk sutures. Thepatient tolerated the procedure. Ther e were no complications at the time of theprocedure. FINDINGS: Ultrasound inter rogation revealed a widely patent brachialvein above the antecubital fossa . A 5 Congolese dual-lumen 20 cm midline catheterwas placed. The tip was placed i n good position over the right axillary vein.IMPRESSION: 5 Congolese dual-lumen mid line catheter placed with tip positioned overthe right axillary vein.Ct Chest Abd Pelv Wo ContResult Date: 04/20/2019Referring Physician: MILI HILLS Patient Name: EVELIO CARLIN FINAL REPORTFROM [facility] DAY [facility] SPECIALIST EXAM: CT chest without contrast and CT abdomen pelviswithout contrast DATE OF EXAM: 2019-04-20 20:52:12 IMAGES: 681 HI STORY: reducedbreath sounds right lung, LLQ tenderness Comparison: 03/14/19 and FINDINGS: Axial images of the chest, abdomen and pelvis are obtained without ivcontrast. Chest: Mediastinal assessment is limited without contrast. Imagequality l imited by artifacts. Patchy lung opacities right greater than leftsimilar to prior. Small pleural effusions. Vascular including coronarycalcifications. Mediastinum appe ars shifted to the right. Left hemidiaphragm iselevated. Abdomen and pelvis: Nonspeci fic bowel pattern, with post surgicalchanges on the left. No definite free air. Organ assessment limited without ivcontrast. No significant free fluid or free air. No b owel obstruction or abscessseen. Catheter and air in the bladder which is not well ass essed. Left hiphardware partially seen with old fracture deformity. G-J tube is pres ent.Ventral hernia right of midline at abdominal wall with multiple small bowel loops without obstructive pattern. Mild right muscle swelling with possiblehematoma an d calcification at right groin image 117/120. Degenerative bonychanges. Multiple likel y chronic compression deformities at thoracic and lumbarspine. Bilateral L5-S1 spondyl olysis and anterolisthesis.IMPRESSION: Right greater than left lung infiltrates and e ffusions. No bowelobstruction. 2 cm hyperdensity at a bowel loop in left pel vis image 90/120,possibly ingested material, or a tube fragment or post surgical charles ge. Ventralabdominal hernia seen. See above. One or more of the following dose reduct iontechniques were used: automated exposure control, adjustment of the mA and/or kVa ccording to patient size, use of iterative reconstructive technique. THISDOCUMENT H BEEN ELECTRONICALLY SIGNED Marcie Edge MD 04/20/2019 22:43 GINA VerdePlease call Katja berger Wireless Consultant [phone] with questions. This reportwas electronically signed by: Marcie Edge MD 04/20/2019 10:44 PMXr Chest PortResult Date: 04/19/2019Hist ory: Respiratory difficulty. FINDINGS: A frontal portable view of the chestis sub mitted for interpretation and is compared to the prior study of04/06/2019. EKG leads overlie the chest. A right-sided midline catheter is notedin situ. The cardiac si lhouette measures at the upper limits of normal. There ispatchy opacity noted at the lung bases, left greater than right, which may beinfiltrative or atelectatic in nature. A small left pleural effusion is noted.Mediastinal and hilar structures a re unremarkable.IMPRESSION: Basilar infiltrative change left greater than ri ght. Small leftpleural effusion.Xr Chest PortResult Date: 04/06/2019CHEST one vie w HISTORY: Pneumonia. COMPARISON: 03/25/2019. There is a poorinspiratory effort which compromises this interpretation. A repeat study issuggested. There is discoid atel ectasis and/or subsegmental left lower lobeatelectasis along the left hemidiaph ragm. .There is no gross evidence ofcongestion, effusions or pneumothorax. IMPRESSION: Possible left lower lobe atelectasis. Poor inspiratory effort.Xr Chest PortResult Date: 03/25/2019CHEST one view HISTORY: Fever. Reflux. Gastrostomy . COMPARISON: 03/11/2019.There is a poor inspiratory effort which compromises thi s interpretation. Arepeat study is suggested. There is discoid atelectasis and/or lef t lower lobeinfiltrate.There is no gross evidence of congestion, other infiltrate s,effusions or pneumothorax.IMPRESSION: Possible left lower lobe infiltrate. Poo r inspiratory effort.Medications reviewedCurrent Facility-Administered Me dicationsMedication Dose Route Frequency albuterol-ipratropium (DUO-NEB) 2.5 MG-0 .5 MG/3 ML 3 mL Nebulization Q6HWA RT acetylcysteine (MUCOMYST) 100 mg/mL (10 %) nebulizer solution 400 mg 4 mLInhalation TID RT miconazole (MICOTIN) 2 % cream Topical BID acetaminophen (TYLENOL) tablet 650 mg 650 mg Oral Q4H PRN vancomycin (VANCOCIN) 1,000 mg in 0.9% sodium chloride 250 mL IVPB 1,000 mgIntraVENous Q12H s odium chloride (NS) flush 5-10 mL 5-10 mL IntraVENous PRN budesonide (PULMICORT) 500 mcg/2 ml nebulizer suspension 500 mcg NebulizationBID RT pantoprazole (PROTON IX) 40 mg in 0.9% sodium chloride 10 mL injection 40 mgIntraVENous DAILY cinac alcet (SENSIPAR) tablet 60 mg 60 mg Oral DAILY ALPRAZolam (XANAX) tablet 0.5 mg 0.5 mg Per G Tube QHS heparin (porcine) injection 5,000 Units 5,000 Units SubCU TAneous Q12H lamoTRIgine (LaMICtal) tablet 50 mg 50 mg Per G Tube Q12H dextrose 5 % - 0.45% NaCl infusion 70 mL/hr IntraVENous CONTINUOUS piperacillin-cuba obactam (ZOSYN) 3.375 g in 0.9% sodium chloride (MBP/ADV) 100mL MBP 3.375 g In traVENous [id number]/Plan:Hospital Problems Date Reviewed: 04/21/2019 Codes Class Noted POA Scrotal rash ICD-10-CM: D29DAI-2-KB: 782.1 04/21/2019 Yes COPD wi th acute exacerbation (HCC) ICD-10-CM: J44.1ICD-9-CM: 491.21 04/19/2019 Unknown Acute on chronic respiratory failure with hypoxia and hypercapnia (HCC)ICD-10-CM: J96.21, J96.22ICD-9-CM: 518.84, 786.09, 799.02 04/19/2019 Unknown Acute hypoxemic respiratory failure (HCC) ICD-10-CM: J96.01ICD-9-CM: 518.81 03/25/2019 Unkno wn Pneumonia ICD-10-CM: J18.9ICD-9-CM: 486 11/08/2018 UnknownAssessment:Staph Sepsis Acute Respiratory Failure with Hypoxia and HypercapniaAcute COPD exacerbationAspira tion PneumoniaAtelectasisS/P Unresponsive like secondary to Toxic Metabolic Enceph alopathyDysphagiaMalfunctioning PEJIncomplete bladder emptyingHyperparathyroidSeizureM entally challenged Plan: IV vancomycin and zosyn per IDFollow up culturesO2 NC/BIPA P per pulmonaryCT chest /abdomenPulmonary f/uIV fluidsIntake and outputInsert fole y catheterCont nebulizersSurgery f/u regarding placement of jejuneostomy tube NutritionMaryamJewel Montesbert 2019Time: 6:07 AM Name Value Range Interpretation Code Description Data [facility] Supporting Document(s ) ID Date Data Source [id number] 04/22/2019 07:31:01 PM [facility] Bedside and Verbal shift change report g ankit to Marisa Jean (oncoming nurse) by Simone (offgoing nurse). Report included the fo llowing information SBAR, Kardex andMAR. Name Value Range Interpretation Code Description Data [facility]) Supporting Document(s ) ID Date Data Source [id number] 04/22/2019 06:48:55 PM [facility] Progress NoteMID-[facility] ,[facility].Krystian Monae MD., F.C.C.P.Stella Hamilton MD., F.C.C.P. [address] [place] [id number] [place] [address] [phone]: Evelio Carlin Sex: male DOA: 04/19/2019Dat e of : 1950 Age: 68 y.o. LOS: LOS: 3 daysSubjective:Patient i s on BIPAP FOR RESPIRATORY DISTRESS , NON VERBAL . G I AND SURGERYNOTES NOTED , PROBABLY PREP RATION FOR SURGICAL INTERVENTION FO J TUBEINSERTION.PATIEN T WITH RESPIRATORY FAILURE STILL IN MODERATE RESP DISTRESS ON NASALCANNULAC EREBRAL PALSY , BEDRIDDEN TODAY TARSFERRED WITH FECER AND MENTAL CHANGES .PATIENT IS FAMILIAR TO ME FROM PAST ADMISSIONS . HX DYSPHAGIA , COPD,SEIZURES , CEREBRA L PALSY .MENTQAL RETARDATION ,PARKINSONISM SCHIZOPHRENIA , , CHEST XRAY - ATELECTA SIS L L L , COPD , KYPHOSCOLIOSIS . PAST HCX PUL;MONARY EMBOLISM . We were asked to admit for work up and evaluation of the above problems. Past Medical Histo ry:Diagnosis Date Chronic obstructive pulmonary disease (HCC) Diaphragmatic hernia without obstruction and without gangrene GERD (gastroesophageal reflu x disease) Hyperparathyroidism (HCC) Mental retardation Parkinsonism due t o drug (HCC) Pneumonia Psychiatric disorder schizophrenia Pulmonary emb jennyfer (HCC) Schizophrenia (HCC) Past Surgical History:Procedure Laterali ty Date HX GASTROSTOMY PEG- replaced 11/2018 Social History Tobacco Use Smoking status: Never Smoker Smokeless tobacco: Never UsedSubstance Use Topics Alcohol use: No History reviewed. No pertinent family history. No Known Aller gies Prior to Admission medicationsMedication Sig Start Date End Date Taking? Authorizing ProviderlamoTRIgine (LAMICTAL) 25 mg rapid dissolve tablet T RADHAMES 2 TABLETS BY MOUTH EVERY12 HOURS 03/18/19 Provider, Ediezinc oxide 20 % o intment Apply to affected area as needed for Skin Irritation.Provider, Edieomemaximo razole (PRILOSEC) 2 mg/mL susp 2 mg/mL oral suspension (compounded) Take 20mL by sarah th daily. 04/06/19 Christos Lopez MDheparin sodium,porcine (HEPARIN, PORCI NE,) 5,000 unit/mL injection 1 mL bySubCUTAneous route every twelve (12) h ours every twelve (12) hours. 03/17/19 Mili Hills, DOmultivitamin (MULTI-D ELYN, WELLESSE) liqd 5 mL by Per G Tube route daily.03/17/19 Mili Hills DOace taminophen (TYLENOL) 32MG/ML soln solution Take 20.3 mL by mouth every four(4) hour s as needed for Pain or Fever. 03/17/19 Mili Hills DOacetylcysteine (MUCOM YST) 100 mg/mL (10 %) nebulizer solution Take 4 mL byinhalation two (2) times a day. Provider, Edieclorazepate (TRANXENE) 3.75 mg tablet 1 Tab by Per G Tube route nightly. MaxDaily Amount: 3.75 mg. 12/30/18 Mili Hills DOcinajenn alcet (SENSIPAR) 30 mg tablet Take 2 Tabs by mouth daily.Patient taking differently: 30 mg daily. Via G tube 12/30/18 Mili Hills DOalbuterol-ipratropium (DUO-NEB ) 2.5 mg-0.5 mg/3 ml nebu 3 mL by Nebulizationroute every six (6) hours. E very 6 hours while awakePatient taking differently: 3 mL by Nebulization route every four (4) hours asneeded. Every 6 hours while awake 12/30/18 Mili Hills DObudesonide (PULMICORT) 0.5 mg/2 mL nbsp 2 mL by Nebulization route two (2) timesa day. 12/30/18 Mili Hills DO REVIEW OF SYSTEMS: NON VERBAL , IN EVIDENT M ODERATE DISTRESSGeneral: negative for fever, chills, sweats, weaknessEyes: negative f or blurred vision, eye pain, loss of vision, diplopiaEar Nose and Throat: negative fo r rhinorrhea, pharyngitis, otalgia, tinnitus,speech or swallowing difficulti esRespiratory: negative for cough, sputum production, SOB, wheezing, DAVALOS,pleuritic painCardiology: negative for chest pain, palpitations, orthopnea, PND, edema,sync opeGastrointestinal: negative for abdominal pain, N/V, dysphagia, change in bowelhab its, bleedingGenitourinary: negative for frequency, urgency, dysuria, hematuria, incontinenceMuskuloskeletal : negative for arthralgia, myalgiaHematology: negative for easy bruising, bleeding, lymphadenopathyDermatological: negative for rash, ulceration, mole change, new lesionEndocrine: negative for hot flashe s or polydipsiaNeurological: negative for headache, dizziness, confusion, focal we akness,paresthesia, memory loss, gait disturbancePsychological: negative for a nxiety, depression, agitation Objective:Vital Signs:Objective:Vital Si gns:Patient Vitals for the past 24 hrs: BP Temp Pulse Resp SpO2 Alozhv09/08/20 1732 - - - - 95 % -04/22/19 1537 126/79 98.7 F (37.1 C) 97 21 93 % -04/22/19 1136 120/ 69 98.5 F (36.9 C) 78 21 93 % -04/22/19 0814 120/90 99.5 F (37.5 C) 77 21 93 % -04/22/19 0637 - - - - 98 % -04/22/19 0611 - - - - - 58.2 kg (128 lb 3.2 oz)04/22/19 0413 148/87 95.2 F (35.1 C) 82 21 95 % -04/22/19 0149 - - - - 99 % -04/22/19 00 17 - - - - 97 % -04/21/19 2328 118/70 97.7 F (36.5 C) 81 20 95 % -04/21/19 1932 118/ 66 98 F (36.7 C) 90 18 90 % -Pulse OX:SpO2 Readings from Last 6 Encounters:04/22/19 95%04/16/19 100%04/06/19 99%03/17/19 92%02/19/19 96%02/18/19 92%@LASTSAO2(6)@ Physical Exam:NON VERBAL ON BIPAP STILL HAVER MODERATE RESPIRATORY DISTRESS General: Alert, cooperative, no distress, appears stated age. Head: N ormocephalic, without obvious abnormality, atraumatic. Eyes: Conjuncti vae/corneas clear. PERRL, EOMs intact. Nose: Nares normal. No drainage or sinus tenderness Throat: Lips, mucosa, and tongue normal Nec k: Supple, symmetrical, trachea midline, no adenopathy,thyroid: no enlargem ent/tenderness/nodules, no carotid bruit and no JVD. Lungs: INCREASED WHEE ZING AND RHONCHI, RALES INCREASED BILATERALLYto auscultation bilaterally. Chest Wall: No tenderness or deformity. Heart: Regular rate and rhythm, S1, S2 normal, no murmur, click,rub or gallop. Abdomen: Soft, non-tender. Bowel sounds normal. No masses, No organomegaly. Extremities: Extremities normal, atraumatic, no cyanosis or edema. Pulses: 4+ bilaterally. Skin: Skin color, texture, turgor normal. No rashes or lesions.CONTRACTED PATIENT Neurologic: CNII-XII intact. No focal motor or sensory deficit.Intake an d Output:Last three shifts: 04/20 1901 - 04/22 0700In: -Out: 1250 [Urine:1250]Lab Results:Recent Results (from the past 24 hour(s))VANCOMYCIN, TROUGH Collection Ti me: 04/22/19 11:50 AMResult Value Ref Range Vancomycin,trough 23.6 (HH) 10 - 20 ug/m LABG:No results for input(s): PH, PCO2, PO2, HCO3, FIO2 in the last 72 hours.Recent G lucose Results: No results found for: GLU, GLUPOC, GLUCPOC@LABAPCYTOINTERPRETATION@ CULTURESAll Micro Results Procedure Component Value Units Date/Time CULTURE, BLOOD [[id number]] (Abnormal) Collected: 04/19/19 1005 Order Status: Completed Specimen: Blood Updated: 04/22/19 0731 Special Requests: NO SPECIAL REQUESTS GRAM STAI N GRAM POSITIVE COCCI IN CLUSTERS ANAEROBIC BOTTLE CALLED TO AND READ BACK BY SHASHI LEDEZMA RN, ED, 0953 ON 04/20/19 TORISMIRAGLIA Culture result: STAPHYLO COCCUS EPIDERMIDIS : Refer to previous culture(s) for susceptibilityresults TJ GODDARD, BLOOD [[id number]] (Abnormal) (Susceptibility) Collected: 5 Order Status: Completed Specimen: Blood Updated: 04/22/19 0729 Special Request s: NO SPECIAL REQUESTS GRAM STAIN GRAM POSITIVE COCCI IN CLUSTERS ANAEROBIC BOT TLE CALLED TO AND READ BACK BY ROB LEDEZMA RN, ED, AT 0953 ON 04/20/19 TO RISMIRAGLIA Culture result: STAPHYLOCOCCUS EPIDERMIDIS CULTURE, BLOOD [[id number]] C ollected: 04/20/19 1440 Order Status: Completed Specimen: Blood Updated: 12/02 0611 Special Requests: NO SPECIAL REQUESTS Culture result: NO GROWTH 2 DA YS CULTURE, BLOOD [[id number]] Collected: 04/20/19 1447 Order Status: Completed S pecimen: Blood Updated: 04/22/19 0611 Special Requests: NO SPECIAL REQUESTS C ulture result: NO GROWTH 2 DAYSImages:@IMAGESENCORD@Xr Abd (agatha)Res ult Date: 04/05/2019XR ABD (KUB) CLINICAL INDICATION PROVIDED:. "assess J tube pos ition."TECHNIQUE.: An initial AP image of the abdomen was acquired. Additional APimage s of the abdomen were acquired after the hand-injection of a small volumeof radio paque contrast by the patient's nurse into the patient's J-tube.COMPARISON:. 2018. FINDINGS:. The tip of the 2 projects over the midabdomen, at the level of the mid jejunum. Post injection images demonstrateopacification of loops of mid small bowel. There is no extraluminal contrastappreciated. A large volume of s tool projects over the distal colon/rectum.Densities project over the lower lungs, right greater than left. Considercorrelation with chest radiograp hs.IMPRESSION:. Injected radiopaque contrast appears to be contained within thelumen of the mid small bowel. There is no evidence of extraluminal contrast.Additional find ings and recommendations as above.Xr Abd (kub)Result Date: 04/02/2019KUB 2 view(s ) History: Evaluate J-tube. Comparison: 11/22/2018. There is a newJ-tube overlyin g the mid abdomen with kinking involving its superior andinferior portion overlying t he mid abdomen. These findings were discussed withmale nurse Jacquelyn at 3:40 PM today.. Th ere is mild ileus of the small bowel butthere is no evidence of obstruction, radiopaqu e gallstones, or left kidneystones or an appendicolith. There are possible right kidney stones. Absence ofan appendicolith it does not exclude appendicitis. CT is sug gested if clinicallyindicated. Old rib fractures are noted.IMPRESSION: Kinking of J-tube in 2 locations. Possible right kidney stonesIleus.Ir Picc Insert Wo Por t Over 5 Years Wo ImgResult Date: 04/01/2019IR PICC INSERT WO PORT OVER 5 YEARS WO IMG CLINICAL INDICATION PROVIDED.:"midline." Medical necessity f or vascular access. PROCEDURE: After beinginformed of the risks, benefits, po tential alternatives to the procedure theinformed consent was obtained. The pa tient was placed on the table the supineposition. The right upper extremit y was prepped and draped in the normal sterilefashion. Ultrasound interrogation was performed of the right upper extremity.Images were obtained. A locat ion was chosen over the right brachial vein abovethe antecubital fossa. Lidocaine so lution was used to anesthetize the scan.Access was gained under ultrasound guidance using a 21-gauge thin-walled needle.A 0.018 a wire was advanced under fluoroscopic guidance into the right axillaryvein. The needle was exchanged o lani a wire for the midline dilator and sheath.The dilator and wire were removed leaving the sheath in situ. Through the sheatha 5 Congolese double-lumen 20 cm midl ine catheter was placed. The peel-away sheathwas removed. The catheter was sewn into position using 2-0 silk sutures. Thepatient tolerated the procedure. Ther e were no complications at the time of theprocedure. FINDINGS: Ultrasound inter rogation revealed a widely patent brachialvein above the antecubital fossa . A 5 Congolese dual-lumen 20 cm midline catheterwas placed. The tip was placed i n good position over the right axillary vein.IMPRESSION: 5 Congolese dual-lumen mid line catheter placed with tip positioned overthe right axillary vein.Ct Chest Abd Pelv Wo ContResult Date: 04/20/2019Referring Physician: MILI HILLS Patient Name: EVELIO CARLIN FINAL REPORTFROM [facility] EXAM: CT chest without contrast and CT abdomen pelviswithout contrast DATE OF EXAM: 2019-04-20 20:52:12 IMAGES: 681 HI STORY: reducedbreath sounds right lung, LLQ tenderness Comparison: 03/14/19 and FINDINGS: Axial images of the chest, abdomen and pelvis are obtained without ivcontrast. Chest: Mediastinal assessment is limited without contrast. Imagequality l imited by artifacts. Patchy lung opacities right greater than leftsimilar to prior. Small pleural effusions. Vascular including coronarycalcifications. Mediastinum appe ars shifted to the right. Left hemidiaphragm iselevated. Abdomen and pelvis: Nonspeci fic bowel pattern, with post surgicalchanges on the left. No definite free air. Organ assessment limited without ivcontrast. No significant free fluid or free air. No b owel obstruction or abscessseen. Catheter and air in the bladder which is not well ass essed. Left hiphardware partially seen with old fracture deformity. G-J tube is pres ent.Ventral hernia right of midline at abdominal wall with multiple small bowel loops without obstructive pattern. Mild right muscle swelling with possiblehematoma an d calcification at right groin image 117/120. Degenerative bonychanges. Multiple likel y chronic compression deformities at thoracic and lumbarspine. Bilateral L5-S1 spondyl olysis and anterolisthesis.IMPRESSION: Right greater than left lung infiltrates and e ffusions. No bowelobstruction. 2 cm hyperdensity at a bowel loop in left pel vis image 90/120,possibly ingested material, or a tube fragment or post surgical charles ge. Ventralabdominal hernia seen. See above. One or more of the following dose reduct iontechniques were used: automated exposure control, adjustment of the mA and/or kVa ccording to patient size, use of iterative reconstructive technique. THISDOCUMENT H BEEN ELECTRONICALLY SIGNED Marcie Edge MD 04/20/2019 22:43 GINA Jenkins.Please call Katja robert Wireless Consultant [phone] with questions. This reportwas electronically signed by: Marcie Edge MD 04/20/2019 10:44 PMXr Chest PortResult Date: 04/19/2019Hist ory: Respiratory difficulty. FINDINGS: A frontal portable view of the chestis sub mitted for interpretation and is compared to the prior study of04/06/2019. EKG leads overlie the chest. A right-sided midline catheter is notedin situ. The cardiac si lhouette measures at the upper limits of normal. There ispatchy opacity noted at the lung bases, left greater than right, which may beinfiltrative or atelectatic in nature. A small left pleural effusion is noted.Mediastinal and hilar structures a re unremarkable.IMPRESSION: Basilar infiltrative change left greater than ri ght. Small leftpleural effusion.Xr Chest PortResult Date: 04/06/2019CHEST one vie w HISTORY: Pneumonia. COMPARISON: 03/25/2019. There is a poorinspiratory effort which compromises this interpretation. A repeat study issuggested. There is discoid atel ectasis and/or subsegmental left lower lobeatelectasis along the left hemidiaph ragm. .There is no gross evidence ofcongestion, effusions or pneumothorax. IMPRESSION: Possible left lower lobe atelectasis. Poor inspiratory effort.Xr Chest PortResult Date: 03/25/2019CHEST one view HISTORY: Fever. Reflux. Gastrostomy . COMPARISON: 03/11/2019.There is a poor inspiratory effort which compromises thi s interpretation. Arepeat study is suggested. There is discoid atelectasis and/or lef t lower lobeinfiltrate.There is no gross evidence of congestion, other infiltrate s,effusions or pneumothorax.IMPRESSION: Possible left lower lobe infiltrate. Poo r inspiratory effort.Medications:Current Facility-Administered MedicationsMedicat ion Dose Route Frequency albuterol-ipratropium (DUO-NEB) 2.5 MG-0 .5 MG/3 ML 3 mL Nebulization Q6HWA RT acetylcysteine (MUCOMYST) 100 mg/mL (10 %) nebulizer solution 400 mg 4 mLInhalation TID RT miconazole (MICOTIN) 2 % cream Topical BID acetaminophen (TYLENOL) tablet 650 mg 650 mg Oral Q4H PRN vancomycin (VANCOCIN) 1,000 mg in 0.9% sodium chloride 250 mL IVPB 1,000 mgIntraVENous Q12H s odium chloride (NS) flush 5-10 mL 5-10 mL IntraVENous PRN budesonide (PULMICORT) 500 mcg/2 ml nebulizer suspension 500 mcg NebulizationBID RT pantoprazole (PROTON IX) 40 mg in 0.9% sodium chloride 10 mL injection 40 mgIntraVENous DAILY cinac alcet (SENSIPAR) tablet 60 mg 60 mg Oral DAILY ALPRAZolam (XANAX) tablet 0.5 mg 0.5 mg Per G Tube QHS heparin (porcine) injection 5,000 Units 5,000 Units SubCU TAneous Q12H lamoTRIgine (LaMICtal) tablet 50 mg 50 mg Per G Tube Q12H dextrose 5 % - 0.45% NaCl infusion 70 mL/hr IntraVENous CONTINUOUS piperacillin-cuba obactam (ZOSYN) 3.375 g in 0.9% sodium chloride (MBP/ADV) 100mL MBP 3.375 g In traVENous Q8RYhsdzr Problems: Pneumonia (11/08/2018) Acute hypoxemic respiratory failure (HCC) (03/25/2019) COPD with acute exacerbation (HCC) (04/19/2019) Acute on chronic respiratory failure with hypoxia and hypercapnia (HCC)(04/19/2019) Scrotal torsten h (04/21/2019)Assessment:1. ACUTE HYPERCAPNIC AND HYPOXIC RESPIRATORY FAILURE2. ATEL ECTASIS L L L3. SEVERE COPD 4. MENTAL RETARDATION5. PNEUMONIA 6. SEPSIS L A = 2.57. METABOLIC ENCEPHALOPATHY8. HX P. E9. 9 AC RESP [id number]. BACTEREMIA G + COCCI11. FLUID OVER LOAD12. POSSIBLE 2 CM SEGMENT OF TUBE IN ILEUM EP R RADIOLOGY ON CATSCAN REPORT Plan:1. BIPAP SUPPORT IPAP = 14 CM , EPAP= 7 CM ,RATE = 20 . MT FIO2 = 70 %2. DUO NEB Q 4 H3. MUCOMYST 10 % VIA MINI NEB Q 8 H4. IV ZOSYN AND VANCOMYCIN5. CONT BIPAP SUPPORT AT NIGHT , DISCUSSED WITH [facility] , ORDERS FORBIOPAP GIVEN6. LASIX 20 MG I V P NOW Krystian Monae MD F.C.C.P.Sadi hogan20196:41 PM Name Value Range Interpretation Code Description Data Harriett rce(s) Supporting Document(s ) ID Date Data Source [id number] 04/22/2019 03:29:06 PM [facility] Surgery Progress NoteNAME: Evelio Abraham beinDOB: 1950MRN: [id number]:Patient was seen in pr esence of his family membersHe appears comfortable.Tolerating tube feeds at 50 cc/hr.Past Medical History:Diagnosis Date Chronic obstructive pulmonary disease (H CC) Diaphragmatic hernia without obstruction and without gangrene GERD (gastroesopha geal reflux disease) Hyperparathyroidism (HCC) Mental retardation 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 Pupils are equalBack : Symmetric, No CVA tenderness.Chest wall: No Accessory muscle use.Heart: Regular rate and rhythm, no murmur, rub or gallop.Abdomen: Soft, non-tender. Redu cible incisional hernia in upper abdomen.Feeding tube in LUQLab Data Revi ewed:CBC w/Diff Recent Labs WBC 12.8*HGB 10.1*HCT 31.8*MCV 98.5*PLT 239G RANS 64LYMPH 10*EOS 0Chemistry Recent Labs 04/19/201559GLU 139* --NA 136 --K 3.7 --CL 104 --CO2 30 31*BUN 13 --CREA 0.35* -- Recent Labs 04/20/2003 30CA 8.6PHOS 2.0*ALB 1.6*Coagulation No results for input(s): PTP, INR, APTT, IN REXT in the last 72hours.IMAGING RESULTS:No results found.Assessment:68-year-old mal e with extensive past medical history who has had feedingjejunostomy placed 6 months a go. Postoperative course was complicated byseepage of acetic fluid through the in cision and led to ventral herniaformation.Surgery consult obtained for placement of feeding jejunostomy.Discussed in detail with his family members at bedside that he significantlyhigh risk candidate for nena keisha but unfortunately due to recurrent aspirationsfrom G tube feeds he would re quire to undergo surgical intervention to place JtubePlan:Will continue medical an d pulmonary optimization for surgery.Continue tube feeds for nowWill followThank you f or allowing me to participate in this patients care and please callme on [phone] with questions and concernsSigned By: Kareen Mills MD 04/22/2019 3:20 P M Name Value Range Interpretation Code Description Data Harriett rce(s) Supporting Document(s ) ID Date Data Source [id number] 04/22/2019 03:17:23 PM EST [facility] Problem: Falls - Risk ofGoal: *Absence o f FallsDescriptionDocument Samra Fall Risk and appropriate interventions in the jhon wsheet.Outcome: Progressing Towards GoalNote: Fall Risk Interventions:Mentation Interv entions: Bed/chair exit alarm, Door open when patientunattended, Adequate sleep, hydra tion, pain control, Evaluatemedications/consider consulting pharmacy, Room close to nurse's stationMedication Interventions: Evaluat e medications/consider consulting pharmacyElimination Interventions: Toile ting schedule/hourly rounds, Bed/chair exitalarm, Call light in reachProblem: P atient Education: Go to Patient Education ActivityGoal: Patient/Family EducationOu tcome: Progressing Towards GoalProblem: Impaired Skin Integrity/Pressure Injury TreatmentGoal: *Improvement of Existing Pressure InjuryOutcome: Progressing Towa rds GoalProblem: Nutrition DeficitGoal: *Optimize nutritional statusDescriptionP t meeting 80% nutrient needs within 3-7 daysOutcome: Progressing Towards Goal Name Value Range Interpretation Code Description Data Harriett rce(s) Supporting Document(s ) ID Date Data Source [id number] 04/22/2019 02:35:59 PM EST [facility] vanco trough 23.6. call placed to Dr. Sa matos to make aware of situation. Waitingfor call back.1434: received call from Dr. Susy severino. Dr. Gomez made aware of vanco troughresults. Orders received to hold 1 2pm dose, as per Dr. Gomez pt can receivedose that is scheduled for tonigh Name Value Range Interpretation Code Description Data Harriett rce(s) Supporting Document(s ) ID Date Data Source [id number] 04/22/2019 01:42:48 PM EST [facility] Value Range Interpretation Description Data Sup porting Code Source(s) Document(s ) Vancomycin 23.6 10-20 Above upper panic [facility] - Goo d [Mass/volume] ug/mL limits Taoist in Serum or Hospital Plasma --trough CALLED TO AND READ BACK BYANETA MCDONALD RN [phone] GHAZALA PICKETT(NOTE)Trough levels of 15-20 ug/mL should be targeted for pa tients withcoagulase negative Staphylococcus and MRSA pneumonia, endocarditis,osteomy elitis, meningitis, and bacteremia; as well as patients notresponding to lower level s. Trough levels of 10-15 ug/mL forinfections from other sources (e.g. urinary tract, cellulitis) areappropriate. All patients receiving concomitant nephrotoxic therap iesshould have their function closely monitored regardless of peak ortrough le vels. ID Date Data Source [id number] 04/22/2019 11:34:49 AM EST [facility] ID Progress Note04/22/2019Subjective:Awake non verbal,off BiPAPAfebrileBlood cultures positive for Staph epidermidis 2/4 bottl esObjective:Review of SystemsPatient is unable to provideVitals:Patient Vitals f or the past 24 hrs: BP Temp Pulse Resp SpO2 Uxopal12/08/20 0814 120/90 99.5 F (37.5 C) 77 21 93 % -04/22/19 0637 - - - - 98 % -04/22/19 0611 - - - - - 58.2 kg (128 lb 3.2 oz)04/22/19 0413 148/87 95.2 F (35.1 C) 82 21 95 % -04/22/19 0149 - - - - 99 % -04/22/19 0017 - - - - 97 % -04/21/19 2328 118/70 97.7 F (36.5 C) 81 20 95 % -11/01 1932 118/66 98 F (36.7 C) 90 18 90 % -04/21/19 1554 112/50 98.3 F (36.8 C) 66 20 100 % -04/21/19 1426 - - - - 97 % -04/21/19 1232 (!) 109/92 98 F (36.7 C ) 71 20 97 % -Tmax: Temp (24hrs), Av.8 F (36.6 C), Min:95.2 F (35.1 C), Max: 99.5 F(37.5 C)Physical Exam:General: Awake non verbal cooperative, no distress, kanika ears stated age.Eyes: Conjunctivae/corneas clear. PERRLNeck: Supple, symmetrical, t rachea midline, no adenopathyLungs: bilateral breath sounds with basal crack les..Heart: Regular rate and rhythm, S1, S2 normal, no murmurAbdomen: Soft, non-te nder. Bowel sounds normal. No masses, Noorganomegaly.peg+Back: Symmetric, no curvature. ROM normal. No CVA tenderness.Extremities: No cyanosis ,chr onic lymphedema .PICC right upper ext.Pulses: 2+ and symmetric all extremities.Skin: S kin color, texture, turgor normal. No rashes or lesionsLymph nodes: Cervical, supracl avicular, and axillary nodes normal.Neurologic: Awake non verbal func tion quadriplegia.Current Facility-Administered MedicationsMedicat ion Dose Route Frequency albuterol-ipratropium (DUO-NEB) 2.5 MG-0 .5 MG/3 ML 3 mL Nebulization Q6HWA RT acetylcysteine (MUCOMYST) 100 mg/mL (10 %) nebulizer solution 400 mg 4 mLInhalation TID RT miconazole (MICOTIN) 2 % cream Topical BID acetaminophen (TYLENOL) tablet 650 mg 650 mg Oral Q4H PRN vancomycin (VANCOCIN) 1,000 mg in 0.9% sodium chloride 250 mL IVPB 1,000 mgIntraVENous Q12H s odium chloride (NS) flush 5-10 mL 5-10 mL IntraVENous PRN budesonide (PULMICORT) 500 mcg/2 ml nebulizer suspension 500 mcg NebulizationBID RT pantoprazole (PROTON IX) 40 mg in 0.9% sodium chloride 10 mL injection 40 mgIntraVENous DAILY cinac alcet (SENSIPAR) tablet 60 mg 60 mg Oral DAILY ALPRAZolam (XANAX) tablet 0.5 mg 0.5 mg Per G Tube QHS heparin (porcine) injection 5,000 Units 5,000 Units SubCU TAneous Q12H lamoTRIgine (LaMICtal) tablet 50 mg 50 mg Per G Tube Q12H dextrose 5 % - 0.45% NaCl infusion 70 mL/hr IntraVENous CONTINUOUS piperacillin-cuba obactam (ZOSYN) 3.375 g in 0.9% sodium chloride (MBP/ADV) 100mL MBP 3.375 g In traVENous O0ACfkp:Recent Labs 04/20/200330WBC 12.8*HGB 10.1*PLT 239BUN 13CREA 0.35*Cultures:Lab ResultsComponent Value Date/Time Culture result: NO GROWT H 2 DAYS 04/20/2019 02:47 PM Culture result: NO GROWTH 2 DAYS 04/20/2019 02:40 PM Cul ture result: STAPHYLOCOCCUS EPIDERMIDIS (A) 04/19/2019 10:15 AMRadiology:No results found.Assessment: Staph sepsis. Aspiration pneumonia. Acute COPD exacerbation. Ac manzanita respiratory failure. Dysphagia s. Plan:1. Continue Iv vancomycin and zosyn 2. Check vanco level3. Follow culturesMaangeles Gomez MDJanuary 20200310 PM Name Value Range Interpretation Code Description Data Harriett rce(s) Supporting Document(s ) ID Date Data Source [id number] 04/22/2019 10:12:00 AM EST [facility] Feedings tolerated, advanced to 50ml/hr . Will continue to monitor pt Name Value Range Interpretation Code Description Data Harriett rce(s) Supporting Document(s ) ID Date Data Source [id number] 04/22/2019 09:59:21 AM [facility] GASTROENTEROLOGY CONSULTATION NOTENAME: Evelio NorrisOB: 1950MRN: [id number] Physician: Juan R rojas Date: 04/22/2019Chief Complaint: asp PNAHistory of Present Illness: Patient is a 68 y.o. with a history of COPD,Parkinsons, mental handicap, Recur rent asp PNA, presumably from gastriccontents. Had J-tube inserted ov er G tube port to reduce PNA risks but J-tubebecame clogged and has been replac ed multiple times due to issues such askinkinh, clogging, And becoming dislo dged. Surgical placement of separateJ-tube site suggested but surgeon concerned abo ut risks of procedure given ptshernia and other issues and this has not yet been p ursued. Pt most recently hadJ-tube exchange 7-10 days ago but Center J-tube not flus silas and is only usingside port to stomach for meds and TF. He returns to hosp wit h recurrentAspiration. 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 Taking?aceta minophen (TYLENOL) 32MG/ML soln solution No NoSig: Take 20.3 mL by mouth every four (4) hours as needed for Pain or Fever.acetylcysteine (MUCOMYST) 100 mg/m L (10 %) nebulizer solution Yes NoSig: Take 4 mL by inhalation two (2) times a day.a lbuterol-ipratropium (DUO-NEB) 2.5 mg-0.5 mg/3 ml nebu No NoSi mL by Nebuliz ation route every six (6) hours. Every 6 hours while awakePatient taking differen tly: 3 mL by Nebulization route every four (4) hours asneeded. Every 6 hours while awakebudesonide (PULMICORT) 0.5 mg/2 mL nbsp No NoSi mL by Nebulization route tw o (2) times a day.cinacalcet (SENSIPAR) 30 mg tablet No NoSig: Take 2 Tabs by mouth daily.Patient taking differently: 30 mg daily. Via G tubeclorazepate (TRANXENE) 3.75 mg tablet No NoSi Tab by Per G Tube route nightly. Max Daily Amount: 3. 75 mg.heparin sodium,porcine (HEPARIN, PORCINE,) 5,000 unit/mL injection No N oSi mL by SubCUTAneous route every twelve (12) hours every twelve (12) hours.lamoT RIgine (LAMICTAL) 25 mg rapid dissolve tablet Yes NoSig: TAKE 2 TABLETS BY MOUTH EDUARDO RY 12 HOURSmultivitamin (MULTI-DELYN, WELLESSE) liqd No NoSi mL by Per G Tube route daily.omeprazole (PRILOSEC) 2 mg/mL susp 2 mg/mL oral suspension (comp ounded) No NoSig: Take 20 mL by mouth daily.zinc oxide 20 % ointment Yes NoS ig: Apply to affected area as needed for Skin Irritation.Facility-Administered Me dications: NoneHospital Medications:Current Facility-Administered MedicationsMedicat ion Dose Route Frequency albuterol-ipratropium (DUO-NEB) 2.5 MG-0 .5 MG/3 ML 3 mL Nebulization Q6HWA RT acetylcysteine (MUCOMYST) 100 mg/mL (10 %) nebulizer solution 400 mg 4 mLInhalation TID RT miconazole (MICOTIN) 2 % cream Topical BID acetaminophen (TYLENOL) tablet 650 mg 650 mg Oral Q4H PRN vancomycin (VANCOCIN) 1,000 mg in 0.9% sodium chloride 250 mL IVPB 1,000 mgIntraVENous Q12H s odium chloride (NS) flush 5-10 mL 5-10 mL IntraVENous PRN budesonide (PULMICORT) 500 mcg/2 ml nebulizer suspension 500 mcg NebulizationBID RT pantoprazole (PROTON IX) 40 mg in 0.9% sodium chloride 10 mL injection 40 mgIntraVENous DAILY cinac alcet (SENSIPAR) tablet 60 mg 60 mg Oral DAILY ALPRAZolam (XANAX) tablet 0.5 mg 0.5 mg Per G Tube QHS heparin (porcine) injection 5,000 Units 5,000 Units SubCU TAneous Q12H lamoTRIgine (LaMICtal) tablet 50 mg 50 mg Per G Tube Q12H dextrose 5 % - 0.45% NaCl infusion 70 mL/hr IntraVENous CONTINUOUS piperacillin-cuba obactam (ZOSYN) 3.375 g in 0.9% sodium chloride (MBP/ADV) 100mL MBP 3.375 g In traVENous C6MAapaxk History:History reviewed. No pertinent family history.Social Histo ry:Social HistoryTobacco Use Smoking status: Never Smoker Smokeless tobacco: Never U sedSubstance Use Topics Alcohol use: NoReview of Systems:FeverChillsHADizzine ssGood moodRashJaundiceJoint painWeight lossOdynophagiaDysphagiaHeartburnChest p ainDyspneaN/VHematemesisAbd painDiarrheaConstipationDysuriaMelenaHem atocheziaThe rest of the review of systems is negative except per HPIObjective:Patient Vitals for the past 8 hrs: BP Temp Pulse Resp SpO2 Xmvutm45/08/20 0814 120/90 99. 5 F (37.5 C) 77 21 93 % -04/22/19 0637 - - - - 98 % -04/22/19 0611 - - - - - 58.2 k g (128 lb 3.2 oz)04/22/19 0413 148/87 95.2 F (35.1 C) 82 21 95 % -No intake/output d daniel recorded.04/20 1901 - 04/22 0700In: -Out: 1250 [Urine:1250]PHYSICAL EXAM:General: Alert, in no acute distressHEENT: Anicteric conjunctiva.Lungs: CTA Bilate rallyHeart: Normal S1, A7Cytncje: Soft, Non distended, Non tender. Normoactive macrina l sounds, no HSM, norebound/guardingMSK: Normal muscle toneSkin: Warm to touchE xtremities: Negative bilateral pedal edemaPsych: Poor insight. Not anxious nor agitated.Lab Data Reviewed:Recent Labs 04/19/2009WBC 12.8* 8.1HG B 10.1* 11.8*HCT 31.8* 36.7*PLT 239 247Recent Labs 04/19/2015 72208MK 136 -- -- 134*K 3.7 -- -- 3.7CL 104 -- -- 92*CO2 30 31* < > 37*BUN 13 -- -- 16CREA 0.35* -- -- 0.69*GLU 139* -- -- 118*CA 8.6 -- -- 9.8MG 1.7 -- -- --PHOS 2.0* -- -- -- < > = values in this interval no t displayed.Recent Labs 04/19/200915SGOT -- 21AP -- 75TP -- 6.3*ALB 1.6* 2.1*GLOB -- 4.2No results for input(s): INR, PTP, APTT, INREXT in the last 72 hours.No results for input(s): FE, TIBC, PSAT, FERR in the last 72 hour s.No results for input(s): CPK, CKMB in the last 72 hours.No lab exists for componen t: TOPONINISee Electronic Medical Record for all procedure/radiology reports and deta kelly were not copied into this note but were reviewed prior to the creation ofth e Plan.Assessment: Recurrent aspiration PNA Dysfunctional J-tube over PEG despite mu ltiple attempts to remedy thesituation. Parkinsons Dx COPD Ventral HerniaPatie nt Active Problem ListDiagnosis Code 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 COPD (chronic obstructive pulmonary disease) ([facility]) J44.9 Acute respiratory distress R06.03 Pneumonia J18.9 COPD exacerbation ([facility]) J44.1 Sepsis due to undetermined organism ([facility]) A41.9 Generalized anxiety disorder F41.1 Acute respiratory failur e with hypoxia ([facility]) J96.01 Pneumonia involving right lung J18.9 Hyponatremia E87.1 SOB (shortness of breath) R06.02 Pressure injury of right heel, stage [address] [facility]) L89.612 Leg wound, right, initial encounter S81.801A Acute hypoxemic resp iratory failure ([facility]) J96.01 COPD with acute exacerbation ([facility]) J44.1 Acute on chron ic respiratory failure with hypoxia and hypercapnia ([facility])J96.21, J96.22 Scrotal rash B38Ipuw: Will try to unclog tube with wire brush, if fails would then strongly considerdiscussion with family regarding merits and risks of surgical placement. Thank you for the consultation. Please call with any questions.Signed by: Diogo Collins MD 04/22/2019 9:52 AM Name Value Range Interpretation Code Description Data [facility] Supporting Document(s ) ID Date Data Source [id number] 04/22/2019 07:32:37 AM [facility] Bedside and Verbal shift change report g ankit to Aneat Mcdonald RN (oncoming nurse) Imani Regalado RN (offgoing nurse). Report i ncluded the following informationSBAR and Kardex. Name Value Range Interpretation Code Description Data [facility] Supporting Document(s ) ID Date Data Source [id number] 04/22/2019 07:31:22 AM [facility] Review BIPAP settings, alarms and skin a dhesive with next shift RT ThomasGeorge BiPAP wiped down with bleach wipes Name Value Range Interpretation Code Description Data [facility] rce(s) Supporting Document(s ) ID Date Data Source [id number] 04/22/2019 03:07:29 AM [facility] Check the patient with RN Marni alonso For any skin breakdown while using theBiPAP mask. RN aware of two finger tech to mas k tightness,and use of mask clipsfor any interventions Name Value Range Interpretation Code Description Data [facility] Supporting Document(s ) ID Date Data Source [id number] 04/22/2019 01:13:31 AM [facility] Progress NotePatient: Evelio Carlin Sex: male DOA: 04/19/2019Date of : 1950 A ge: 68 y.o. :[id number]:Reyes Carlin is 68 y.o. male who was transferred by EMS from [facility] withfever,h ypoxia, O2 SAT 83 % , hypotensive and tachypnea. Pt was unresponsive. Hewas p laced on BIPAP.Today, he is awake and alert. He is nonverbal and unable to provide a history.He has positive blood cultures with GPC in clusters Anaerobic bottle. RN rep orting 500 cc in bladder with straight cath this morning.Bladder scan showing 200+ c c urine in bladder He has medical history of Dysphagia, recurrent aspiration pneumoni a, s/p g/tplacement 11/17/18 and conversion to jtube on 02/07/19, hyperlipidemia,hyperp arathyroid, unspecified,seizure, large hiatal hernia, anxiety disorder,personal histor y of pulmonary embolus,COPD, GERD, Schizophrenia unspecified,Kyphosis, Par kinson disease, Severe intellectual disabilities, Contracturesand Generaliz ed muscle weakness. He had positioning of jejeunal feeding tubeand endoclipping on 03/26/19. There was leaking of the TF, the tube was foundwith a crack defect.On he had endoscopic placemetn of jtube over PEG and removal ofdefective tube. Kinking of the jtube was found on KUB with a large volume ofstool within the distal c olon/rectum. Pt was tolerating TF via the peg port andwas discharged to snf and outpat ient follow up.On 04/16/2019 pt had ambulatory procedure with gi. Per GI, mu ltiple unsuccessfulattempts to place PEJ. He is suggesting surgical placement for J t ube placement.Will discuss with surgeon and possible get second opinion.D/W Dr Frances minor, he will provide a general surgeon's second opinion. 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 7 F (36.5 C)Resp 20Ht 5' 2" (1.575 m)Wt 57.5 kg (126 lb 11.2 oz)SpO2 95%BMI 23.1 7 kg/m PHYSICAL EXAM:General: Alert, cooperative, no distress, appears stated age.Head: Normocephalic, without obvious abnormality, atraumatic.Eyes: Conjunct ivae clear, anicteric sclerae. Pupils are equalNeck: Supple, symmetrical, no stephanie nopathy, no carotid bruit and no JVD.Lungs: Bilateral air entry. Diminished breath sounds rght lung. No Wheezingor Rhonchi. No rales.Chest wall: No Accessory muscle u se.Heart: Regular rate and rhythm, no murmur, or rub.Abdomen: Positive reduc ible ventral hernia marvel peg, peg in place, soft,non-tender. Not distended. Bowel s ounds normal.Extremities: Extremities normal, atraumatic, No cyanosis. Trace ankle e yana.Skin: Warm and dry. No rashes or lesions. Not JaundicedLymph nodes: Cerv ical, supraclavicular normal.Psych: Not anxious or agitated.Neurologic: EOMs int act. No facial asymmetry. No aphasia or slurred speech.Generalized weakness, Fuentes rt and Awake.Intake and Output:Current Shift: No intake/output data recorded.Last thr ee shifts: 04/20 07 - 04/21 1900In: -Out: 1250 [Urine:1250]Lab/Data Reviewed:Recen t Days:Recent Labs 04/19/200915WBC 12.8* 8.1HGB 10.1* 11.8* HCT 31.8* 36.7*PLT 239 247Recent Labs 04/19/201504/19/200945 0 NA 136 -- -- 134*K 3.7 -- -- 3.7CL 104 -- -- 92*CO2 30 31* 37 * 37*GLU 139* -- -- 118*BUN 13 -- -- 16CREA 0.35* -- -- 0.69*CA 8.6 -- -- 9.8MG 1.7 -- -- --PHOS 2.0* -- -- --ALB 1.6* -- -- 2.1*TBILI -- -- -- 0.2SGOT -- -- -- 21ALT -- -- -- 12*Recent Labs 45PH 7.30* 7.42PCO2 60* 55*PO2 134* 86HCO3 30* 36*FIO2 65.0 70.0Xr Abd (kub) Result Date: 04/05/2019XR ABD (KUB) CLINICAL INDICATION PROVIDED:. "assess J tube pos ition."TECHNIQUE.: An initial AP image of the abdomen was acquired. Additional APimage s of the abdomen were acquired after the hand-injection of a small volumeof radio paque contrast by the patient's nurse into the patient's J-tube.COMPARISON:. 2018. FINDINGS:. The tip of the 2 projects over the midabdomen, at the level of the mid jejunum. Post injection images demonstrateopacification of loops of mid small bowel. There is no extraluminal contrastappreciated. A large volume of s tool projects over the distal colon/rectum.Densities project over the lower lungs, right greater than left. Considercorrelation with chest radiograp hs.IMPRESSION:. Injected radiopaque contrast appears to be contained within thelumen of the mid small bowel. There is no evidence of extraluminal contrast.Additional find ings and recommendations as above.Xr Abd (kub)Result Date: 04/02/2019KUB 2 view(s ) History: Evaluate J-tube. Comparison: 11/22/2018. There is a newJ-tube overlyin g the mid abdomen with kinking involving its superior andinferior portion overlying t he mid abdomen. These findings were discussed withmale nurse Jacquelyn at 3:40 PM today.. Th ere is mild ileus of the small bowel butthere is no evidence of obstruction, radiopaqu e gallstones, or left kidneystones or an appendicolith. There are possible right kidney stones. Absence ofan appendicolith it does not exclude appendicitis. CT is sug gested if clinicallyindicated. Old rib fractures are noted.IMPRESSION: Kinking of J-tube in 2 locations. Possible right kidney stonesIleus.Ir Picc Insert Wo Por t Over 5 Years Wo ImgResult Date: 04/01/2019IR PICC INSERT WO PORT OVER 5 YEARS WO IMG CLINICAL INDICATION PROVIDED.:"midline." Medical necessity f or vascular access. PROCEDURE: After beinginformed of the risks, benefits, po tential alternatives to the procedure theinformed consent was obtained. The pa tient was placed on the table the supineposition. The right upper extremit y was prepped and draped in the normal sterilefashion. Ultrasound interrogation was performed of the right upper extremity.Images were obtained. A locat ion was chosen over the right brachial vein abovethe antecubital fossa. Lidocaine so lution was used to anesthetize the scan.Access was gained under ultrasound guidance using a 21-gauge thin-walled needle.A 0.018 a wire was advanced under fluoroscopic guidance into the right axillaryvein. The needle was exchanged o lani a wire for the midline dilator and sheath.The dilator and wire were removed leaving the sheath in situ. Through the sheatha 5 Congolese double-lumen 20 cm midl ine catheter was placed. The peel-away sheathwas removed. The catheter was sewn into position using 2-0 silk sutures. Thepatient tolerated the procedure. Ther e were no complications at the time of theprocedure. FINDINGS: Ultrasound inter rogation revealed a widely patent brachialvein above the antecubital fossa . A 5 Congolese dual-lumen 20 cm midline catheterwas placed. The tip was placed i n good position over the right axillary vein.IMPRESSION: 5 Congolese dual-lumen mid line catheter placed with tip positioned overthe right axillary vein.Ct Chest Abd Pelv Wo ContResult Date: 04/20/2019Referring Physician: MILI HILLS Patient Name: EVELIO CARLIN FINAL REPORTFROM [facility] EXAM: CT chest without contrast and CT abdomen pelviswithout contrast DATE OF EXAM: 2019-04-20 20:52:12 IMAGES: 681 HI STORY: reducedbreath sounds right lung, LLQ tenderness Comparison: 03/14/19 and FINDINGS: Axial images of the chest, abdomen and pelvis are obtained without ivcontrast. Chest: Mediastinal assessment is limited without contrast. Imagequality l imited by artifacts. Patchy lung opacities right greater than leftsimilar to prior. Small pleural effusions. Vascular including coronarycalcifications. Mediastinum appe ars shifted to the right. Left hemidiaphragm iselevated. Abdomen and pelvis: Nonspeci fic bowel pattern, with post surgicalchanges on the left. No definite free air. Organ assessment limited without ivcontrast. No significant free fluid or free air. No b owel obstruction or abscessseen. Catheter and air in the bladder which is not well ass essed. Left hiphardware partially seen with old fracture deformity. G-J tube is pres ent.Ventral hernia right of midline at abdominal wall with multiple small bowel loops without obstructive pattern. Mild right muscle swelling with possiblehematoma an d calcification at right groin image 117/120. Degenerative bonychanges. Multiple likel y chronic compression deformities at thoracic and lumbarspine. Bilateral L5-S1 spondyl olysis and anterolisthesis.IMPRESSION: Right greater than left lung infiltrates and e ffusions. No bowelobstruction. 2 cm hyperdensity at a bowel loop in left pel vis image 90/120,possibly ingested material, or a tube fragment or post surgical charles ge. Ventralabdominal hernia seen. See above. One or more of the following dose reduct iontechniques were used: automated exposure control, adjustment of the mA and/or kVa ccording to patient size, use of iterative reconstructive technique. THISDOCUMENT H BEEN ELECTRONICALLY SIGNED Marcie Edge MD 04/20/2019 22:43 GINA VerdePlease call Katja ging Wireless Consultant [phone] ([phone]) with questions. This reportwas electronically signed by: Marcie Edge MD 04/20/2019 10:44 PMXr Chest PortResult Date: 04/19/2019Hist ory: Respiratory difficulty. FINDINGS: A frontal portable view of the chestis sub mitted for interpretation and is compared to the prior study of04/06/2019. EKG leads overlie the chest. A right-sided midline catheter is notedin situ. The cardiac si lhouette measures at the upper limits of normal. There ispatchy opacity noted at the lung bases, left greater than right, which may beinfiltrative or atelectatic in nature. A small left pleural effusion is noted.Mediastinal and hilar structures a re unremarkable.IMPRESSION: Basilar infiltrative change left greater than ri ght. Small leftpleural effusion.Xr Chest PortResult Date: 04/06/2019CHEST one vie w HISTORY: Pneumonia. COMPARISON: 03/25/2019. There is a poorinspiratory effort which compromises this interpretation. A repeat study issuggested. There is discoid atel ectasis and/or subsegmental left lower lobeatelectasis along the left hemidiaph ragm. .There is no gross evidence ofcongestion, effusions or pneumothorax. IMPRESSION: Possible left lower lobe atelectasis. Poor inspiratory effort.Xr Chest PortResult Date: 03/25/2019CHEST one view HISTORY: Fever. Reflux. Gastrostomy . COMPARISON: 03/11/2019.There is a poor inspiratory effort which compromises thi s interpretation. Arepeat study is suggested. There is discoid atelectasis and/or lef t lower lobeinfiltrate.There is no gross evidence of congestion, other infiltrate s,effusions or pneumothorax.IMPRESSION: Possible left lower lobe infiltrate. Poo r inspiratory effort.Medications reviewedCurrent Facility-Administered Me dicationsMedication Dose Route Frequency miconazole (MICOTIN) 2 % cream Topical BID acetaminophen (TYLENOL) tablet 650 mg 650 mg Oral Q4H PRN vancomycin (VANCOCI N) 1,000 mg in 0.9% sodium chloride 250 mL IVPB 1,000 mgIntraVENous Q12H sodium c hloride (NS) flush 5-10 mL 5-10 mL IntraVENous PRN albuterol-ipratropium ( DUO-NEB) 2.5 MG-0.5 MG/3 ML 3 mL Nebulization Q4H RT budesonide (PULMICO RT) 500 mcg/2 ml nebulizer suspension 500 mcg NebulizationBID RT pantoprazole (TN OTONIX) 40 mg in 0.9% sodium chloride 10 mL injection 40 mgIntraVENous DAILY acety lcysteine (MUCOMYST) 100 mg/mL (10 %) nebulizer solution 400 mg 4 mLInhalatio n BID cinacalcet (SENSIPAR) tablet 60 mg 60 mg Oral DAILY ALPRAZolam (XANAX) tablet 0.5 mg 0.5 mg Per G Tube QHS heparin (porcine) injection 5,000 Units 5,000 U nits SubCUTAneous Q12H lamoTRIgine (LaMICtal) tablet 50 mg 50 mg Per G Tub e Q12H dextrose 5 % - 0.45% NaCl infusion 70 mL/hr IntraVENous CONTINUOUS piperac illin-tazobactam (ZOSYN) 3.375 g in 0.9% sodium chloride (MBP/ADV) 100mL MBP 3.3 75 g IntraVENous [id number]/Plan:Hospital Problems Date Reviewed: 04/21/2019 Codes Class Noted POA Scrotal rash ICD-10-CM: L45HDN-0-GW: 782.1 04/21/2019 Yes COPD wi th acute exacerbation (HCC) ICD-10-CM: J44.1ICD-9-CM: 491.21 04/19/2019 Unknown Acute on chronic respiratory failure with hypoxia and hypercapnia (HCC)ICD-10-CM: J96.21, J96.22ICD-9-CM: 518.84, 786.09, 799.02 04/19/2019 Unknown Acute hypoxemic respiratory failure (HCC) ICD-10-CM: J96.01ICD-9-CM: 518.81 03/25/2019 Unkno wn Pneumonia ICD-10-CM: J18.9ICD-9-CM: 486 11/08/2018 UnknownAssessment:Staph Sepsis Acute Respiratory Failure with Hypoxia and HypercapniaAcute COPD exacerbationAspira tion PneumoniaAtelectasisS/P Unresponsive like secondary to Toxic Metabolic Enceph alopathyDysphagiaMalfunctioning PEJIncomplete bladder emptyingHyperparathyroidSeizureM entally challengedPlan: IV vancomycin and zosyn per IDFollow up culturesO2 NC/BIPA P per pulmonaryCT chest /abdomenPulmonary f/uIV fluidsIntake and outputInsert fole y catheterCont nebulizersConsult Dr Linder for a general surgery "s second opinion. regarding placement of jejuneostomy tubeStart TF -Avel Gonzalez y 2019Time: 11:56 PM Name Value Range Interpretation Code Description Data Harriett rce(s) Supporting Document(s ) ID Date Data Source [id number] 04/21/2019 08:51:51 PM EST [facility] Progress NoteMID-[facility] ,P.C.Krystian Monae MD., F.C.C.P.Stella Hamilton MD., F.C.C.P. [address] [place] [id number] [place] [address] [phone]: Evelio Carlin Sex: male DOA: 04/19/2019Dat e of : 1950 Age: 68 y.o. LOS: LOS: 2 daysSubjective:PATIENT WITH RESPIRATORY FAILURE STILL IN MODERATE RESP DISTRESS ON NASALCANNULAC EREBRAL PALSY , BEDRIDDEN TODAY TARSFERRED WITH FECER AND MENTAL CHANGES .PATIENT IS FAMILIAR TO ME FROM PAST ADMISSIONS . HX DYSPHAGIA , COPD,SEIZURES , CEREBRA L PALSY .MENTQAL RETARDATION ,PARKINSONISM SCHIZOPHRENIA , , CHEST XRAY - ATELECTA SIS L L L , COPD , KYPHOSCOLIOSIS . PAST HCX PUL;MONARY EMBOLISM . We were asked to admit for work up and evaluation of the above problems. 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 No pertinent family history.No Known AllergiesPrior to Admis elio medicationsMedication Sig Start Date End Date Taking? Authorizing ProviderKanchan gine (LAMICTAL) 25 mg rapid dissolve tablet TAKE 2 TABLETS BY MOUTH EVERY12 HOURS Provider, Ediezinc oxide 20 % ointment Apply to affected area as need ed for Skin Irritation.Provider, Edieomeprazole (PRILOSEC) 2 mg/mL susp 2 mg/mL oral suspension (compounded) Take 20mL by mouth daily. 04/06/19 Christos Wagner MDheparin sodium,porcine (HEPARIN, PORCINE,) 5,000 unit/mL inject ion 1 mL bySubCUTAneous route every twelve (12) hours every twelve (12) hours. 03/17 Mili Hills DOmultivitamin (MULTI-DELYN, WELLESSE) liqd 5 mL by Per G Tube route daily.03/17/19 Mili Hills DOacetaminophen (TYLENOL) 32MG/ ML soln solution Take 20.3 mL by mouth every four(4) hours as needed for Pain or Feve r. 03/17/19 Mili Hills DOacetylcysteine (MUCOMYST) 100 mg/mL (1 0 %) nebulizer solution Take 4 mL byinhalation two (2) times a day. Provider, Edieclorazepate (TRANXENE) 3.75 mg tablet 1 Tab by Per G Tube route nightly. MaxDaily Amount: 3.75 mg. 12/30/18 Mili Hills DOcinacalcet (SENSIPA R) 30 mg tablet Take 2 Tabs by mouth daily.Patient taking differently: 30 mg daily. Via G tube 12/30/18 Mili Hills DOalbuterol-ipratropium (DUO-NEB ) 2.5 mg-0.5 mg/3 ml nebu 3 mL by Nebulizationroute every six (6) hours. E very 6 hours while awakePatient taking differently: 3 mL by Nebulization route every four (4) hours asneeded. Every 6 hours while awake 12/30/18 Mili Hills DObudesonide (PULMICORT) 0.5 mg/2 mL nbsp 2 mL by Nebulization route two (2) timesa day. 12/30/18 Mili Hills DO REVIEW OF SYSTEMS: NON VERBAL , IN EVIDENT M ODERATE DISTRESSGeneral: negative for fever, chills, sweats, weaknessEyes: negative f or blurred vision, eye pain, loss of vision, diplopiaEar Nose and Throat: negative fo r rhinorrhea, pharyngitis, otalgia, tinnitus,speech or swallowing difficulti esRespiratory: negative for cough, sputum production, SOB, wheezing, DAVALOS,pleuritic painCardiology: negative for chest pain, palpitations, orthopnea, PND, edema,sync opeGastrointestinal: negative for abdominal pain, N/V, dysphagia, change in bowelhab its, bleedingGenitourinary: negative for frequency, urgency, dysuria, hematuria, incontinenceMuskuloskeletal : negative for arthralgia, myalgiaHematology: negative for easy bruising, bleeding, lymphadenopathyDermatological: negative for rash, ulceration, mole change, new lesionEndocrine: negative for hot flashe s or polydipsiaNeurological: negative for headache, dizziness, confusion, focal we akness,paresthesia, memory loss, gait disturbancePsychological: negative for a nxiety, depression, agitation Objective:Vital Signs:Patient Vitals for the past 24 hrs : BP Temp Pulse Resp SpO2 Fncljq81/07/20 1932 118/66 98 F (36.7 C) 90 18 90 % -04/21 1554 112/50 98.3 F (36.8 C) 66 20 100 % -04/21/19 1426 - - - - 97 % -04/21/19 12 32 (!) 109/92 98 F (36.7 C) 71 20 97 % -04/21/19 0756 - - - - 97 % -04/21/19 07 40 122/74 97.3 F (36.3 C) 78 20 98 % -04/21/19 0404 135/69 98.9 F (37.2 C) 87 20 96 % -04/20/19 2353 112/81 96.8 F (36 C) 82 20 96 % -04/20/19 2128 121/69 97.6 F (36.4 C) 92 22 92 % 57.5 kg (126 lb 11.2 oz)Pulse OX:SpO2 Readings from Last 6 En counters:04/21/19 90%04/16/19 100%04/06/19 99%03/17/19 92%02/19/19 96%02/18/19 92%@ LASTSAO2(6)@Physical Exam:TACHYPNEA RR = 30 / MT , USING ACCESSORY MUSCLES , NODIAP HORESIS General: Alert, cooperative, MODERATE RESPIRATORY distress, appear sstated age. Head: Normocephalic, without obvious abnormali ty, atraumatic. Eyes: Conjunctivae/corneas clear. PERRL, EOMs intact. Nose: Nares normal. No drainage or sinus tenderness Thr oat: Lips, mucosa, and tongue normal Neck: Supple, symmetrical, trachea midline, no adenopathy,thyroid: no enlargement/tenderness/nodules, no carot id bruit and no JVD. Lungs: WHEEZING +1 , RHONCHI , RALES LLL > R LLL to auscultationbilaterally. Chest Wall: No tenderness or deformity. Heart: Regular rate and rhythm, S1, S2 normal, no murmur, click,rub or nettles p. Abdomen: Soft, non-tender. Bowel sounds normal. No masses, No organomeg edison. Extremities: CONTRACTED Extremities normal, atraumatic, no cyanosis or edema . Pulses: 4+ bilaterally. Skin: Skin color, texture, turgor no rmal. No rashes or lesions. Neurologic: CNII-XII intact. No focal motor or senso ry deficit.Intake and Output:Last three shifts: 04/20 0701 - 04/21 1900In: -Out : 1250 [Urine:1250]Lab Results:No results found for this or any previous visit (fr om the past 24 hour(s)).ABG:Recent Labs 04/19/201559 04/19/200945PH 7.30* 7.42PC O2 60* 55*PO2 134* 86HCO3 30* 36*FIO2 65.0 70.0Recent Glucose Results: No results f ound for: GLU, GLUPOC, GLUCPOC@LABAPCYTOINTERPRETATION@CULTURES All Micro Results Procedure Component Value Units Date/Time CULTURE, BLOOD [[id number]] Collected: 04/20/19 1440 Order Status: Completed Specimen: Blood Updated: 11/01 1311 Special Requests: NO SPECIAL REQUESTS Culture result: NO GROWTH AFTE R 22 HOURS CULTURE, BLOOD [[id number]] Collected: 04/20/19 1447 Order Status: Completed Specimen: Blood Updated: 04/21/19 1311 Special Requests: NO SPEC IAL REQUESTS Culture result: NO GROWTH AFTER 22 HOURS CULTURE, BLOOD [[id number]] (Ab normal) Collected: 04/19/19 1015 Order Status: Completed Specimen: Blood Upda mikel: 04/21/19 0753 Special Requests: NO SPECIAL REQUESTS GRAM STAIN GRAM POSIT BRITNI COCCI IN CLUSTERS ANAEROBIC BOTTLE CALLED TO AND READ BACK BY ROB KNOX, RN, ED, AT 0953 ON 04/20/19 TORISMIRAGLIA Culture result: GRAM POS ITIVE COCCI IDENTIFICATION AND SUSCEPTIBILITY TO FOLLOW CULTURE, BLOOD [[id number]] Col lected: 04/19/19 1005 Order Status: Completed Specimen: Blood Updated: 10/02 0954 Special Requests: NO SPECIAL REQUESTS GRAM STAIN GRAM POSITIVE COCC I IN CLUSTERS ANAEROBIC BOTTLE CALLED TO AND READ BACK BY ROB LEDEZMA RN, ED, 0953 ON 04/20/19 TORISMIRAGLIA Culture result: IDENTIFICATION AND SUSCEPTIBILITY TO FO LLOWImages:@IMAGESENCORD@Xr Abd (agatha)Result Date: 04/05/2019XR ROSELYN (AGATHA) CLINICAL IN DICATION PROVIDED:. "assess J tube position."TECHNIQUE.: An initial AP imag e of the abdomen was acquired. Additional APimages of the abdomen were acquired af ter the hand-injection of a small volumeof radiopaque contrast by the patient's mason se into the patient's J-tube.COMPARISON:. 04/02/2019. FINDINGS:. The tip of the 2 projects over the midabdomen, at the level of the mid jejunum. Post injection images d emonstrateopacification of loops of mid small bowel. There is no extraluminal contrast appreciated. A large volume of stool projects over the distal colon/rectum.Densities p roject over the lower lungs, right greater than left. Considercorrelation with ches t radiographs.IMPRESSION:. Injected radiopaque contrast appears to be contai nataly within thelumen of the mid small bowel. There is no evidence of extraluminal con trast.Additional findings and recommendations as above.Xr Abd (kub)Result Date: 2018KUB 2 view(s) History: Evaluate J-tube. Comparison: 11/22/2018. There is a newJ-t ube overlying the mid abdomen with kinking involving its superior andinferior porti on overlying the mid abdomen. These findings were discussed withmale nurse Mora at 3:4 0 PM today.. There is mild ileus of the small bowel butthere is no evidence of obstruc tion, radiopaque gallstones, or left kidneystones or an appendicolith. There are possible right kidney stones. Absence ofan appendicolith it does not exclude a ppendicitis. CT is suggested if clinicallyindicated. Old rib fractures a re noted.IMPRESSION: Kinking of J-tube in 2 locations. Possible right kidney stonesI leus.Ir Picc Insert Wo Port Over 5 Years Wo ImgResult Date: 04/01/2019IR PICC INSERT WO PORT OVER 5 YEARS WO IMG CLINICAL INDICATION PROVIDED.:"midline." Medical necessity for vascular access. PROCEDURE: After beinginformed of the risks, benefi ts, potential alternatives to the procedure theinformed consent was obtained. The pa tient was placed on the table the supineposition. The right upper extremit y was prepped and draped in the normal sterilefashion. Ultrasound interrogation was performed of the right upper extremity.Images were obtained. A locat ion was chosen over the right brachial vein abovethe antecubital fossa. Lidocaine so lution was used to anesthetize the scan.Access was gained under ultrasound guidance using a 21-gauge thin-walled needle.A 0.018 a wire was advanced under fluoroscopic guidance into the right axillaryvein. The needle was exchanged o lani a wire for the midline dilator and sheath.The dilator and wire were removed leaving the sheath in situ. Through the sheatha 5 Congolese double-lumen 20 cm midl ine catheter was placed. The peel-away sheathwas removed. The catheter was sewn into position using 2-0 silk sutures. Thepatient tolerated the procedure. Ther e were no complications at the time of theprocedure. FINDINGS: Ultrasound inter rogation revealed a widely patent brachialvein above the antecubital fossa . A 5 Congolese dual-lumen 20 cm midline catheterwas placed. The tip was placed i n good position over the right axillary vein.IMPRESSION: 5 Congolese dual-lumen mid line catheter placed with tip positioned overthe right axillary vein.Ct Chest Abd Pelv Wo ContResult Date: 04/20/2019Referring Physician: MILI HILLS Patient Name: EVELIO CARLIN FINAL REPORTFROM [facility] EXAM: CT chest without contrast and CT abdomen pelviswithout contrast DATE OF EXAM: 2019-04-20 20:52:12 IMAGES: 681 HI STORY: reducedbreath sounds right lung, LLQ tenderness Comparison: 03/14/19 and FINDINGS: Axial images of the chest, abdomen and pelvis are obtained without ivcontrast. Chest: Mediastinal assessment is limited without contrast. Imagequality l imited by artifacts. Patchy lung opacities right greater than leftsimilar to prior. Small pleural effusions. Vascular including coronarycalcifications. Mediastinum appe ars shifted to the right. Left hemidiaphragm iselevated. Abdomen and pelvis: Nonspeci fic bowel pattern, with post surgicalchanges on the left. No definite free air. Organ assessment limited without ivcontrast. No significant free fluid or free air. No b owel obstruction or abscessseen. Catheter and air in the bladder which is not well ass essed. Left hiphardware partially seen with old fracture deformity. G-J tube is pres ent.Ventral hernia right of midline at abdominal wall with multiple small bowel loops without obstructive pattern. Mild right muscle swelling with possiblehematoma an d calcification at right groin image 117/120. Degenerative bonychanges. Multiple likel y chronic compression deformities at thoracic and lumbarspine. Bilateral L5-S1 spondyl olysis and anterolisthesis.IMPRESSION: Right greater than left lung infiltrates and e ffusions. No bowelobstruction. 2 cm hyperdensity at a bowel loop in left pel vis image 90/120,possibly ingested material, or a tube fragment or post surgical charles ge. Ventralabdominal hernia seen. See above. One or more of the following dose reduct iontechniques were used: automated exposure control, adjustment of the mA and/or kVa ccording to patient size, use of iterative reconstructive technique. THISDOCUMENT H BEEN ELECTRONICALLY SIGNED Marcie Edge MD 04/20/2019 22:43 GINA VerdePlease call Katja berger Wireless Consultant [phone] with questions. This reportwas electronically signed by: Marcie Edge MD 04/20/2019 10:44 PMXr Chest PortResult Date: 04/19/2019Hist ory: Respiratory difficulty. FINDINGS: A frontal portable view of the chestis sub mitted for interpretation and is compared to the prior study of04/06/2019. EKG leads overlie the chest. A right-sided midline catheter is notedin situ. The cardiac si lhouette measures at the upper limits of normal. There ispatchy opacity noted at the lung bases, left greater than right, which may beinfiltrative or atelectatic in nature. A small left pleural effusion is noted.Mediastinal and hilar structures a re unremarkable.IMPRESSION: Basilar infiltrative change left greater than ri ght. Small leftpleural effusion.Xr Chest PortResult Date: 04/06/2019CHEST one vie w HISTORY: Pneumonia. COMPARISON: 03/25/2019. There is a poorinspiratory effort which compromises this interpretation. A repeat study issuggested. There is discoid atel ectasis and/or subsegmental left lower lobeatelectasis along the left hemidiaph ragm. .There is no gross evidence ofcongestion, effusions or pneumothorax. IMPRESSION: Possible left lower lobe atelectasis. Poor inspiratory effort.Xr Chest PortResult Date: 03/25/2019CHEST one view HISTORY: Fever. Reflux. Gastrostomy . COMPARISON: 03/11/2019.There is a poor inspiratory effort which compromises thi s interpretation. Arepeat study is suggested. There is discoid atelectasis and/or lef t lower lobeinfiltrate.There is no gross evidence of congestion, other infiltrate s,effusions or pneumothorax.IMPRESSION: Possible left lower lobe infiltrate. Poo r inspiratory effort.Medications:Current Facility-Administered MedicationsMedicat ion Dose Route Frequency miconazole (MICOTIN) 2 % cream Topical BID aceta minophen (TYLENOL) tablet 650 mg 650 mg Oral Q4H PRN vancomycin (VANCOCIN) 1,000 mg in 0.9% sodium chloride 250 mL IVPB 1,000 mgIntraVENous Q12H sodium chloride (NS) flush 5-10 mL 5-10 mL IntraVENous PRN albuterol-ipratropium (DUO-NEB) 2.5 MG-0 .5 MG/3 ML 3 mL Nebulization Q4H RT budesonide (PULMICORT) 500 mcg/2 ml nebu lizer suspension 500 mcg NebulizationBID RT pantoprazole (PROTONIX) 40 mg in 0.9% so dium chloride 10 mL injection 40 mgIntraVENous DAILY acetylcysteine (MUC OMYST) 100 mg/mL (10 %) nebulizer solution 400 mg 4 mLInhalation BID cinacalcet ( SENSIPAR) tablet 60 mg 60 mg Oral DAILY ALPRAZolam (XANAX) tablet 0.5 mg 0.5 mg Per G Tube QHS heparin (porcine) injection 5,000 Units 5,000 Units SubCUTAneous Q1 2H lamoTRIgine (LaMICtal) tablet 50 mg 50 mg Per G Tube Q12H dextrose 5 % - 0.45% NaCl infusion 70 mL/hr IntraVENous CONTINUOUS piperacillin-tazobactam (ZOS YN) 3.375 g in 0.9% sodium chloride (MBP/ADV) 100mL MBP 3.375 g IntraVENous I4ENtdrqw Problems: Pneumonia (11/08/2018) Acute hypoxemic respiratory failure (HCC) (02/2019) COPD with acute exacerbation (HCC) (04/19/2019) Acute on chronic respiratory failure with hypoxia and hypercapnia (HCC)(04/19/2019) Scrotal rash (04/21/2019) Assessment:1. ACUTE HYPERCAPNIC AND HYPOXIC RESPIRATORY FAILURE2. ATELECTAS IS L L L3. SEVERE COPD4. MENTAL RETARDATION5. PNEUMONIA6. SEPSIS L A = 2.57. METABOLIC ENCEPHALOPATHY8. HX P. E9. 9 AC RESP KIWXCTLA10. BACTEREMIA G + COCCI Plan: 1.BIPAP SUPPORT IPAP = 14 CM , EPAP= 7 CM ,RATE = 20 . MT FIO 2 = 70 %2. DUO NEB Q 4 H3. MUCOMYST 10 % VIA MINI NEB Q 8 H4. IV ZOSYN AND VANC OMYCIN5. CONT BIPAP SUPPORT AT NIGHT , DISCUSSED WITH STAFF , ORDERS FORBIOPA P GIVEN Krystian Moane MD F.C.C.P.April 21, 20198:45 PM Name Value Range Interpretation Code Description Data Harriett rce(s) Supporting Document(s ) ID Date Data Source [id number] 04/21/2019 08:44:15 PM EST [facility] Progress NoteMID-[facility] ,P.C.Krystian Monae MD., F.C.C.P.Stella Hamilton MD., F.C.C.P. [address] [place] [phone] [place], [place] [id number] [phone]: Evelio Carlin Sex: male DOA: 04/19/2019Dat e of : 1950 Age: 68 y.o. LOS: LOS: 2 daysSubjective:Mr. Jarad herrera is a 68 y.o. year old male who is being seen ACUTE HYPERCAPNICAND HYPOXIC RE SPIRATORY FAILURE IN E R . MENTALLY RETARDED PATIENT WITH ASPIRATION PNEUM OMNIA AN D SEVERE COPD , O SAObjective:Vital Signs:Patient Vitals for the past 24 hrs : BP Temp Pulse Resp SpO2 Rsbnbl18/07/20 1932 118/66 98 F (36.7 C) 90 18 90 % -04/21 1554 112/50 98.3 F (36.8 C) 66 20 100 % -04/21/19 1426 - - - - 97 % -04/21/19 12 32 (!) 109/92 98 F (36.7 C) 71 20 97 % -04/21/19 0756 - - - - 97 % -04/21/19 07 40 122/74 97.3 F (36.3 C) 78 20 98 % -04/21/19 0404 135/69 98.9 F (37.2 C) 87 20 96 % -04/20/19 2353 112/81 96.8 F (36 C) 82 20 96 % -04/20/19 2128 121/69 97.6 F (36.4 C) 92 22 92 % 57.5 kg (126 lb 11.2 oz)Pulse OX:SpO2 Readings from Last 6 En counters:04/21/19 90%04/16/19 100%04/06/19 99%03/17/19 92%02/19/19 96%02/18/19 92%@ LASTSAO2(6)@Physical Exam:MORE AWAKE NON VERBAL , , MILD DYSPNEA , LESS SOB O N NASALCANNULA General: Alert, cooperative, no distress, appears stated age. Head: Normocephalic, without obvious abnormality, atraumatic. Eyes: Conjunctivae/corneas clear. PERRL, EOMs intact. No se: Nares normal. No drainage or sinus tenderness Throat: Lips, mucos a, and tongue normal Neck: Supple, symmetrical, trachea midline, no adenopathy,thyroid: no enlargement/tenderness/nodules, no carot id bruit and no JVD. Lungs: WHEEZING AND RHONCHI +1 PERSISTS , RAL ES L L L > R L L toauscultation bilaterally. Chest Wall: No tenderness or deformity . Heart: Regular rate and rhythm, S1, S2 normal, no murmur, click,rub or g allop. Abdomen: Soft, non-tender. Bowel sounds normal. No masses, No organomeg edison. Extremities: CONTRACTED PT Extremities normal, atraumatic, no cyanosis oredema. Pulses: 4+ bilaterally. Skin: Skin color, texture, turgor nor mal. No rashes or lesions. Neurologic: CNII-XII intact. No focal motor or senso ry deficit.Intake and Output:Last three shifts: 04/20 0701 - 04/21 1900In: -Out : 1250 [Urine:1250]Lab Results:No results found for this or any previous visit (fr om the past 24 hour(s)).ABG:Recent Labs 04/19/201559 04/19/200945PH 7.30* 7.42PC O2 60* 55*PO2 134* 86HCO3 30* 36*FIO2 65.0 70.0Recent Glucose Results: No results f ound for: GLU, GLUPOC, GLUCPOC@LABAPCYTOINTERPRETATION@CULTURES All Micro Results Procedure Component Value Units Date/Time CULTURE, BLOOD [[id number]] Collected: 04/20/19 1440 Order Status: Completed Specimen: Blood Updated: 11/01 1311 Special Requests: NO SPECIAL REQUESTS Culture result: NO GROWTH AFTE R 22 HOURS CULTURE, BLOOD [[id number]] Collected: 04/20/19 1447 Order Status: Completed Specimen: Blood Updated: 04/21/19 1311 Special Requests: NO SPEC IAL REQUESTS Culture result: NO GROWTH AFTER 22 HOURS CULTURE, BLOOD [[id number]] (Ab normal) Collected: 04/19/19 1015 Order Status: Completed Specimen: Blood Upda mikel: 04/21/19 0753 Special Requests: NO SPECIAL REQUESTS GRAM STAIN GRAM POSIT BRITNI COCCI IN CLUSTERS ANAEROBIC BOTTLE CALLED TO AND READ BACK BY ROB KNOX RN, ED, AT 0953 ON 04/20/19 TORISMIRAGLIA Culture result: GRAM POS ITIVE COCCI IDENTIFICATION AND SUSCEPTIBILITY TO FOLLOW CULTURE, BLOOD [[id number]] Col lected: 04/19/19 1005 Order Status: Completed Specimen: Blood Updated: 10/02 0954 Special Requests: NO SPECIAL REQUESTS GRAM STAIN GRAM POSITIVE COCC I IN CLUSTERS ANAEROBIC BOTTLE CALLED TO AND READ BACK BY ROB LEDEZMA RN, ED, 0953 ON 04/20/19 TORISMIRAGLIA Culture result: IDENTIFICATION AND SUSCEPTIBILITY TO FO LLOWImages:@[email or web address] Abd (kub)Result Date: 04/05/2019XR ABD (KUB) CLINICAL IN DICATION PROVIDED:. "assess J tube position."TECHNIQUE.: An initial AP imag e of the abdomen was acquired. Additional APimages of the abdomen were acquired af ter the hand-injection of a small volumeof radiopaque contrast by the patient's mason se into the patient's J-tube.COMPARISON:. 04/02/2019. FINDINGS:. The tip of the 2 projects over the midabdomen, at the level of the mid jejunum. Post injection images d emonstrateopacification of loops of mid small bowel. There is no extraluminal contrast appreciated. A large volume of stool projects over the distal colon/rectum.Densities p roject over the lower lungs, right greater than left. Considercorrelation with ches t radiographs.IMPRESSION:. Injected radiopaque contrast appears to be contai nataly within thelumen of the mid small bowel. There is no evidence of extraluminal con trast.Additional findings and recommendations as above.Xr Abd (kub)Result Date: 2018KUB 2 view(s) History: Evaluate J-tube. Comparison: 11/22/2018. There is a newJ-t ube overlying the mid abdomen with kinking involving its superior andinferior porti on overlying the mid abdomen. These findings were discussed withsabine Mora at 3:4 0 PM today.. There is mild ileus of the small bowel butthere is no evidence of obstruc tion, radiopaque gallstones, or left kidneystones or an appendicolith. There are possible right kidney stones. Absence ofan appendicolith it does not exclude a ppendicitis. CT is suggested if clinicallyindicated. Old rib fractures a re noted.IMPRESSION: Kinking of J-tube in 2 locations. Possible right kidney stonesI leus.Ir Picc Insert Wo Port Over 5 Years Wo ImgResult Date: 04/01/2019IR PICC INSERT WO PORT OVER 5 YEARS WO IMG CLINICAL INDICATION PROVIDED.:"midline." Medical necessity for vascular access. PROCEDURE: After beinginformed of the risks, benefi ts, potential alternatives to the procedure theinformed consent was obtained. The pa tient was placed on the table the supineposition. The right upper extremit y was prepped and draped in the normal sterilefashion. Ultrasound interrogation was performed of the right upper extremity.Images were obtained. A locat ion was chosen over the right brachial vein abovethe antecubital fossa. Lidocaine so lution was used to anesthetize the scan.Access was gained under ultrasound guidance using a 21-gauge thin-walled needle.A 0.018 a wire was advanced under fluoroscopic guidance into the right axillaryvein. The needle was exchanged o lani a wire for the midline dilator and sheath.The dilator and wire were removed leaving the sheath in situ. Through the sheatha 5 Congolese double-lumen 20 cm midl ine catheter was placed. The peel-away sheathwas removed. The catheter was sewn into position using 2-0 silk sutures. Thepatient tolerated the procedure. Ther e were no complications at the time of theprocedure. FINDINGS: Ultrasound inter rogation revealed a widely patent brachialvein above the antecubital fossa . A 5 Congolese dual-lumen 20 cm midline catheterwas placed. The tip was placed i n good position over the right axillary vein.IMPRESSION: 5 Congolese dual-lumen mid line catheter placed with tip positioned overthe right axillary vein.Ct Chest Abd Pelv Wo ContResult Date: 04/20/2019Referring Physician: MILI HILLS Patient Name: EVELIO CARLIN FINAL REPORTFROM [facility]IL[facility]IST EXAM: CT chest without contrast and CT abdomen pelviswithout contrast DATE OF EXAM: 2019-04-20 20:52:12 IMAGES: 681 HI STORY: reducedbreath sounds right lung, LLQ tenderness Comparison: 03/14/19 and FINDINGS: Axial images of the chest, abdomen and pelvis are obtained without ivcontrast. Chest: Mediastinal assessment is limited without contrast. Imagequality l imited by artifacts. Patchy lung opacities right greater than leftsimilar to prior. Small pleural effusions. Vascular including coronarycalcifications. Mediastinum appe ars shifted to the right. Left hemidiaphragm iselevated. Abdomen and pelvis: Nonspeci fic bowel pattern, with post surgicalchanges on the left. No definite free air. Organ assessment limited without ivcontrast. No significant free fluid or free air. No b owel obstruction or abscessseen. Catheter and air in the bladder which is not well ass essed. Left hiphardware partially seen with old fracture deformity. G-J tube is pres ent.Ventral hernia right of midline at abdominal wall with multiple small bowel loops without obstructive pattern. Mild right muscle swelling with possiblehematoma an d calcification at right groin image 117/120. Degenerative bonychanges. Multiple likel y chronic compression deformities at thoracic and lumbarspine. Bilateral L5-S1 spondyl olysis and anterolisthesis.IMPRESSION: Right greater than left lung infiltrates and e ffusions. No bowelobstruction. 2 cm hyperdensity at a bowel loop in left pel vis image 90/120,possibly ingested material, or a tube fragment or post surgical charles ge. Ventralabdominal hernia seen. See above. One or more of the following dose reduct iontechniques were used: automated exposure control, adjustment of the mA and/or kVa ccording to patient size, use of iterative reconstructive technique. THISDOCUMENT H BEEN ELECTRONICALLY SIGNED Marcie Edge MD 04/20/2019 22:43 GINA VerdePlease call Katja berger Wireless Consultant [phone] with questions. This reportwas electronically signed by: Marcie Edge MD 04/20/2019 10:44 PMXr Chest PortResult Date: 04/19/2019Hist ory: Respiratory difficulty. FINDINGS: A frontal portable view of the chestis sub mitted for interpretation and is compared to the prior study of04/06/2019. EKG leads overlie the chest. A right-sided midline catheter is notedin situ. The cardiac si lhouette measures at the upper limits of normal. There ispatchy opacity noted at the lung bases, left greater than right, which may beinfiltrative or atelectatic in nature. A small left pleural effusion is noted.Mediastinal and hilar structures a re unremarkable.IMPRESSION: Basilar infiltrative change left greater than ri ght. Small leftpleural effusion.Xr Chest PortResult Date: 04/06/2019CHEST one vie w HISTORY: Pneumonia. COMPARISON: 03/25/2019. There is a poorinspiratory effort which compromises this interpretation. A repeat study issuggested. There is discoid atel ectasis and/or subsegmental left lower lobeatelectasis along the left hemidiaph ragm. .There is no gross evidence ofcongestion, effusions or pneumothorax. IMPRESSION: Possible left lower lobe atelectasis. Poor inspiratory effort.Xr Chest PortResult Date: 03/25/2019CHEST one view HISTORY: Fever. Reflux. Gastrostomy . COMPARISON: 03/11/2019.There is a poor inspiratory effort which compromises thi s interpretation. Arepeat study is suggested. There is discoid atelectasis and/or lef t lower lobeinfiltrate.There is no gross evidence of congestion, other infiltrate s,effusions or pneumothorax.IMPRESSION: Possible left lower lobe infiltrate. Poo r inspiratory effort.Medications:Current Facility-Administered MedicationsMedicat ion Dose Route Frequency miconazole (MICOTIN) 2 % cream Topical BID aceta minophen (TYLENOL) tablet 650 mg 650 mg Oral Q4H PRN vancomycin (VANCOCIN) 1,000 mg in 0.9% sodium chloride 250 mL IVPB 1,000 mgIntraVENous Q12H sodium chloride (NS) flush 5-10 mL 5-10 mL IntraVENous PRN albuterol-ipratropium (DUO-NEB) 2.5 MG-0 .5 MG/3 ML 3 mL Nebulization Q4H RT budesonide (PULMICORT) 500 mcg/2 ml nebu lizer suspension 500 mcg NebulizationBID RT pantoprazole (PROTONIX) 40 mg in 0.9% so dium chloride 10 mL injection 40 mgIntraVENous DAILY acetylcysteine (MUC OMYST) 100 mg/mL (10 %) nebulizer solution 400 mg 4 mLInhalation BID cinacalcet ( SENSIPAR) tablet 60 mg 60 mg Oral DAILY ALPRAZolam (XANAX) tablet 0.5 mg 0.5 mg Per G Tube QHS heparin (porcine) injection 5,000 Units 5,000 Units SubCUTAneous Q1 2H lamoTRIgine (LaMICtal) tablet 50 mg 50 mg Per G Tube Q12H dextrose 5 % - 0.45% NaCl infusion 70 mL/hr IntraVENous CONTINUOUS piperacillin-tazobactam (ZOS YN) 3.375 g in 0.9% sodium chloride (MBP/ADV) 100mL MBP 3.375 g IntraVENous L4KOtcmup Problems: Pneumonia (11/08/2018) Acute hypoxemic respiratory failure (HCC) (02/2019) COPD with acute exacerbation (HCC) (04/19/2019) Acute on chronic respiratory failure with hypoxia and hypercapnia (HCC)(04/19/2019) Scrotal rash (04/21/2019) Assessment:1. ACUTE HYPERCAPNIC AND HYPOXIC RESPIRATORY FAILURE2. ATELECTAS IS L L L3. SEVERE COPD4. MENTAL RETARDATION5. PNEUMONIA6. SEPSIS L A = 2.57. METABOLIC ENCEPHALOPATHY8. HX P. E Plan:1. BIPAP SUPPORT IPAP = 14 CM , EPAP= 7 CM ,RATE = 20 . MT FIO2 = 70 %2. DUO NEB Q 4 H3. MUCOMYST 10 % VIA MIN I NEB Q 8 H4. IV ZOSYN AND VANCOMYCIN5. I V FLUIDSKrystian Monae MD F.C.C.P.April 21, 20198:39 PM Name Value Range Interpretation Code Description Data Harriett rce(s) Supporting Document(s ) ID Date Data Source [id number] 04/21/2019 08:41:13 PM EST [facility] Problem: Pressure Injury - Risk ofGoal: *Prevention of pressure injuryDescriptionDocument Btuch Scale a nd appropriate interventions in the flowsheet.Outcome: Progressing Towards G oalNote: Pressure Injury Interventions:Sensory Interventions: Nelda ck visual cues for pain, Pressure redistributionbed/mattress (bed type), T urn and reposition approx. every two hours (pillowsand wedges if needed)Moisture In terventions: Absorbent underpadsActivity Interventions: Pressure redistribution b ed/mattress(bed type)Mobility Interventions: Pressure redistribution bed/mattress (be d type)Nutrition Interventions: Document food/fluid/supplement intakeFriction and Shear Interventions: Lift sheet Name Value Range Interpretation Code Description Data [facility] rce(s) Supporting Document(s ) ID Date Data Source [id number] 04/21/2019 07:37:41 PM EST [facility] Bedside and Verbal shift change report carol pham to Marni Regalado (oncoming nurse)by Aneta Mcdonald (offgoing nurse). Report includ ed the following information SBAR,Kardex and MAR. Name Value Range Interpretation Code Description Data [facility] rce(s) Supporting Document(s ) ID Date Data Source [id number] 04/21/2019 07:04:30 PM EST [facility] ID Progress Note04/21/2019Subjective:Awake non verbal,off BiPAPAfebrileBlood cultures positive for gram positive cocci in clus ters.Objective:Review of SystemsPatient is unable to provideVitals:Patient Vitals f or the past 24 hrs: BP Temp Pulse Resp SpO2 Xgtcud58/07/20 1554 112/50 98.3 F (36.8 C) 66 20 100 % -04/21/19 1426 - - - - 97 % -04/21/19 1232 (!) 109/92 98 F (36.7 C ) 71 20 97 % -04/21/19 0756 - - - - 97 % -04/21/19 0740 122/74 97.3 F (36.3 C) 78 20 98 % -04/21/19 0404 135/69 98.9 F (37.2 C) 87 20 96 % -04/20/19 2353 112/ 81 96.8 F (36 C) 82 20 96 % -04/20/19 2128 121/69 97.6 F (36.4 C) 92 22 92 % 57.5 kg (126 lb 11.2 oz)04/20/191999 128/88 - 85 - 91 % -04/20/19 1900 121/67 - 84 - 94 % -04/20/19 1800 116/63 - 85 - (!) 86 % -04/20/19 1724 - - - - 96 % -Tmax: Temp (24hrs), Av.8 F (36.6 C), Min:96.8 F (36 C), Max:98.9 F(37.2 C)Physical Ex am:General: Awake non verbal cooperative, no distress, appears stated age.Eyes: Conj unctivae/corneas clear. PERRLNeck: Supple, symmetrical, trachea midline, no adenopa thyLungs: bilateral breath sounds with basal crackles..Heart: Regular rate and rhythm, S1, S2 normal, no murmurAbdomen: Soft, non-tender. Bowel sounds normal. N o masses, Noorganomegaly.peg+Back: Symmetric, no curvature. ROM normal. No CVA tenderness.Extremities: No cyanosis ,chronic lymphedema .PICC right upper ex t.Pulses: 2+ and symmetric all extremities.Skin: Skin color, texture, t urgor normal. No rashes or lesionsLymph nodes: Cervical, supraclavicular, and ax illary nodes normal.Neurologic: Awake non verbal function quadriplegia.Current Fac ility-Administered MedicationsMedication Dose Route Frequency miconazole (MICOTIN) 2 % cream Topical BID acetaminophen (TYLENOL) tablet 650 mg 650 mg Oral Q4H PRN vancomycin (VANCOCIN) 1,000 mg in 0.9% sodium chloride 250 mL IVPB 1,000 mgInt raVENous Q12H sodium chloride (NS) flush 5-10 mL 5-10 mL IntraVENous PRN albute rol-ipratropium (DUO-NEB) 2.5 MG-0.5 MG/3 ML 3 mL Nebulization Q4H RT budesonide (PU LMICORT) 500 mcg/2 ml nebulizer suspension 500 mcg NebulizationBID RT pantoprazole (PROTONIX) 40 mg in 0.9% sodium chloride 10 mL injection 40 mgIntraVENous DAILY ac etylcysteine (MUCOMYST) 100 mg/mL (10 %) nebulizer solution 400 mg 4 mLInhalatio n BID cinacalcet (SENSIPAR) tablet 60 mg 60 mg Oral DAILY ALPRAZolam (XANAX) tablet 0.5 mg 0.5 mg Per G Tube QHS heparin (porcine) injection 5,000 Units 5,000 U nits SubCUTAneous Q12H lamoTRIgine (LaMICtal) tablet 50 mg 50 mg Per G Tub e Q12H dextrose 5 % - 0.45% NaCl infusion 70 mL/hr IntraVENous CONTINUOUS piperac illin-tazobactam (ZOSYN) 3.375 g in 0.9% sodium chloride (MBP/ADV) 100mL MBP 3.3 75 g IntraVENous Y4GGvdh:Recent Labs 04/20/200330 04/19/200915WBC 12.8* 8.1HG B 10.1* 11.8*PLT 239 247BUN 13 16CREA 0.35* 0.69*SGOT -- 21AP -- 75TBILI -- 0. 2Cultures:Lab ResultsComponent Value Date/Time Culture result: NO GROWTH AFTE R 22 HOURS 04/20/2019 02:47 PM Culture result: NO GROWTH AFTER 22 HOURS 020 02:40 PM Culture result: (A) 04/19/2019 10:15 AM GRAM POSITIVE COCCI IDENTIFICA TION AND SUSCEPTIBILITY TO FOLLOWRadiology:Ct Chest Abd Pelv Wo ContResult Date: 020Referring Physician: MILI HILLS Patient Name: EVELIO CARLIN FINAL RE PORTFROM [facility]IL[facility] SPECIALIST EXAM: CT chest without contrast and CT abdomen pelviswi thout contrast DATE OF EXAM: 2019-04-20 20:52:12 IMAGES: 681 HISTORY: reducedbre ath sounds right lung, LLQ tenderness Comparison: 03/14/19 and 12/21/18FINDINGS: Axial images of the chest, abdomen and pelvis are obtained without ivcontrast. Chest: Mediastinal assessment is limited without contrast. Imagequality limited b y artifacts. Patchy lung opacities right greater than leftsimilar to prior. Small pleural effusions. Vascular including coronarycalcifications. Mediastinum appe ars shifted to the right. Left hemidiaphragm iselevated. Abdomen and pelvis: Nonspeci fic bowel pattern, with post surgicalchanges on the left. No definite free air. Organ assessment limited without ivcontrast. No significant free fluid or free air. No b owel obstruction or abscessseen. Catheter and air in the bladder which is not well ass essed. Left hiphardware partially seen with old fracture deformity. G-J tube is pres ent.Ventral hernia right of midline at abdominal wall with multiple small bowel loops without obstructive pattern. Mild right muscle swelling with possiblehematoma an d calcification at right groin image 117/120. Degenerative bonychanges. Multiple likel y chronic compression deformities at thoracic and lumbarspine. Bilateral L5-S1 spondyl olysis and anterolisthesis.IMPRESSION: Right greater than left lung infiltrates and e ffusions. No bowelobstruction. 2 cm hyperdensity at a bowel loop in left pel vis image 90/120,possibly ingested material, or a tube fragment or post surgical charles ge. Ventralabdominal hernia seen. See above. One or more of the following dose reduct iontechniques were used: automated exposure control, adjustment of the mA and/or kVa ccording to patient size, use of iterative reconstructive technique. THISDOCUMENT H BEEN ELECTRONICALLY SIGNED Marcie Edge MD 04/20/2019 22:43 GINA VerdePlease call Katjadevang berger Wireless Consultant [phone] ([phone]) with questions. This reportwas electronically signed by: Marcie Edge MD 04/20/2019 10:44 PMAssessment: Staph sepsis. Aspiration pneumonia. Acute COPD exacerbation. Acute respiratory failure. Dysphagia s. Plan: 1. Continue Iv vancomycin and zosyn2. Follow culturesFomalaika Dudley MDJanuary 20195: 16 PM Name Value Range Interpretation Code Description Data Harriett rce(s) Supporting Document(s ) ID Date Data Source [id number] 04/21/2019 04:58:41 PM EST [facility] CONSULT NOTENAME: Evelio VierascottbeinDOB: 1Sex: maleMRN: [id number]: 04/19/2019ATTENDING: Mili Hills DOPC P: Mili Hills DODate/Time: 04/21/2019 4:49 PMSubjective:REASON FOR CONSULT:Ivelisse stauffer is a 68 y.o. male who I was asked to see for possible feedingjejunostomy tube jocelyn cement.He is with extensive past medical history, bedbound, severe [facility]omy tube placed on 11/17/2018. Postoperativeco urse was complicated by drainage of ascites to the wound and managed withnegative pr essure vacuum therapy. Patient has developed a ventral hernia at thesite of the surgi inez incision. Patient has had multiple aspiration pneumonias.So G tube was conv erted to GJ tube. 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 No pertinent family history.Social HistorySocioeconomic Hist ory Marital status: SINGLE Spouse name: Not on file Number of children: Not on file Years of education: Not on file Highest education level: Not on fileTobacco Use Smoking status: Never Smoker Smokeless tobacco: Never UsedSubstance and Sexual Activity Alcohol use: No Drug use: NoOther Topics ConcernPrior to Admission medicat ionsMedication Sig Start Date End Date Taking? Authorizing ProviderlamoTRIgine (LAMICTAL) 25 mg rapid dissolve tablet TAKE 2 TABLETS BY MOUTH EVERY12 HOURS 03/18/19 Provider, Historicalzinc oxide 20 % ointment Apply to affected area as needed for Sk in Irritation.Provider, Historicalomeprazole (PRILOSEC) 2 mg/mL susp 2 mg/mL oral christa pension (compounded) Take 20mL by mouth daily. 04/06/19 Christos Lopez MDhep sona sodium,porcine (HEPARIN, PORCINE,) 5,000 unit/mL injection 1 mL bySubCUTAneous ro manzanita every twelve (12) hours every twelve (12) hours. 03/17/19Mili Hills DOmultivi tamin (MULTI-DELYN, WELLESSE) liqd 5 mL by Per G Tube route daily.03/17/19 Mili Hills DOacetaminophen (TYLENOL) 32MG/ML soln solution Take 20.3 mL by mouth ever y four(4) hours as needed for Pain or Fever. 03/17/19 Mili Hills DOacetylcyste ine (MUCOMYST) 100 mg/mL (10 %) nebulizer solution Take 4 mL byinhalation two (2) times a day. Provider, Historicalclorazepate (TRANXENE) 3.75 mg tablet 1 Tab by Per G Tube route nightly. MaxDaily Amount: 3.75 mg. 12/30/18 Mili Escudero DOcinacalcet (SENSIPAR) 30 mg tablet Take 2 Tabs by mouth daily.Patien t taking differently: 30 mg daily. Via G tube 12/30/18 Mili Hills DOalbuterol-ip ratropium (DUO-NEB) 2.5 mg-0.5 mg/3 ml nebu 3 mL by Nebulizationroute every six (6) ho urs. Every 6 hours while awakePatient taking differently: 3 mL by Nebulization route every four (4) hours asneeded. Every 6 hours while awake 12/30/18 Mili Hills D Obudesonide (PULMICORT) 0.5 mg/2 mL nbsp 2 mL by Nebulization route two (2) timesa day . 12/30/18 Mili Hills DONo Known AllergiesCurrent Facility-Administered M edicationsMedication Dose Route Frequency miconazole (MICOTIN) 2 % cream Topical BID acetaminophen (TYLENOL) tablet 650 mg 650 mg Oral Q4H PRN vancomycin (VANCOCI N) 1,000 mg in 0.9% sodium chloride 250 mL IVPB 1,000 mgIntraVENous Q12H sodium c hloride (NS) flush 5-10 mL 5-10 mL IntraVENous PRN albuterol-ipratropium ( DUO-NEB) 2.5 MG-0.5 MG/3 ML 3 mL Nebulization Q4H RT budesonide (PULMICO RT) 500 mcg/2 ml nebulizer suspension 500 mcg NebulizationBID RT pantoprazole (TN OTONIX) 40 mg in 0.9% sodium chloride 10 mL injection 40 mgIntraVENous DAILY acety lcysteine (MUCOMYST) 100 mg/mL (10 %) nebulizer solution 400 mg 4 mLInhalatio n BID cinacalcet (SENSIPAR) tablet 60 mg 60 mg Oral DAILY ALPRAZolam (XANAX) tablet 0.5 mg 0.5 mg Per G Tube QHS heparin (porcine) injection 5,000 Units 5,000 U nits SubCUTAneous Q12H lamoTRIgine (LaMICtal) tablet 50 mg 50 mg Per G Tub e Q12H dextrose 5 % - 0.45% NaCl infusion 70 mL/hr IntraVENous CONTINUOUS piperac illin-tazobactam (ZOSYN) 3.375 g in 0.9% sodium chloride (MBP/ADV) 100mL MBP 3.3 75 g IntraVENous V2BKATTXS OF SYSTEMS:As per HPIObjective:VITALS:Visit VitalsBP 112/5 0 (BP 1 Location: Right arm, BP Patient Position: At rest;Head of bedelevated (C omment degrees))Pulse 66Temp 98.3 F (36.8 C)Resp 20Ht 5' 2" (1.575 m)Wt 126 lb 11. 2 oz (57.5 kg)SpO2 100%BMI 23.17 kg/m Temp (24hrs), Av.8 F (36.6 C), Min:96.8 F (36 C), Max:98.9 F (37.2 C)PHYSICAL EXAM:General: Alert, but confused. no distress, appears stated age. Bed-bound,frail, cachecticEyes: Conjun ctivae clear, anicteric sclerae. Pupils are equalLungs: Decreased air entry both l eunice bases bilaterallyChest wall: No Accessory muscle use.Heart: Regular ra te and rhythm, no murmur, rub or gallop.Abdomen: Soft, reducible ventra l hernia noted in the upper abdomen, feedingtube in left upper quadrantRectal deferredLAB DATA REVIEWED:Lab ResultsComponent Value Date/Time Glucose , bedside 74 04/06/2019 04:39 PM Glucose, bedside 117 (H) 04/06/2019 12:06 PM Gluc ose, bedside 86 04/06/2019 07:07 AM Glucose, bedside 89 04/06/2019 06:26 AM Glucose, bedside 106 04/06/2019 12:31 AMRecent Labs 04/19/201559 04/19/200945 0 NA 136 -- -- 134*K 3.7 -- -- 3.7CL 104 -- -- 92*CO2 30 31* 37 * 37*BUN 13 -- -- 16CREA 0.35* -- -- 0.69*GLU 139* -- -- 118*PHOS 2.0* - - -- --CA 8.6 -- -- 9.8ALB 1.6* -- -- 2.1*WBC 12.8* -- -- 8.1HGB 10.1* -- -- 11.8*HCT 31.8* -- -- 36.7*PLT 239 -- -- 247IMAGING RESULTS:Ct Ches t Abd Pelv Wo ContResult Date: 04/20/2019Referring Physician: MILI REYES SON Patient Name: EVELIO CARLIN FINAL REPORTFROM [facility]AGING DAY [facility]ABILIT[facility] SPECIALIST EXAM: CT ches t without contrast and CT abdomen pelviswithout contrast DATE OF EXAM: 20:52:12 IMAGES: 681 HISTORY: reducedbreath sounds right lung, LLQ ten derness Comparison: 03/14/19 and 12/21/18FINDINGS: Axial images of the ches t, abdomen and pelvis are obtained without ivcontrast. Chest: Mediastinal assessmen t is limited without contrast. Imagequality limited by artifacts. Patchy lung opacit ies right greater than leftsimilar to prior. Small pleural effusions. Vascular includ ing coronarycalcifications. Mediastinum appears shifted to the right. Left hemid iaphragm iselevated. Abdomen and pelvis: Nonspecific bowel pattern, with post nena gicalchanges on the left. No definite free air. Organ assessment limited without iv contrast. No significant free fluid or free air. No bowel obstruction or abscessseen . Catheter and air in the bladder which is not well assessed. Left hiphardware part ially seen with old fracture deformity. G-J tube is present.Ventral hernia right of midline at abdominal wall with multiple small bowelloops without obstructive pattern. Mild right muscle swelling with possiblehematoma and calcification at [facility] groin image 117/120. Degenerative bonychanges. Multiple likely chronic com pression deformities at thoracic and lumbarspine. Bilateral L5-S1 spondylolys is and anterolisthesis.IMPRESSION: Right greater than left lung infiltrates and e ffusions. No bowelobstruction. 2 cm hyperdensity at a bowel loop in left pel vis image 90/120,possibly ingested material, or a tube fragment or post surgical charles ge. Ventralabdominal hernia seen. See above. One or more of the following dose reduct iontechniques were used: automated exposure control, adjustment of the mA and/or kVa ccording to patient size, use of iterative reconstructive technique. THISDOCUMENT H BEEN ELECTRONICALLY SIGNED aMrcie Edge MD 04/20/2019 22:43 GINA VerdePlease call Katjadevang berger Wireless Consultant [phone] ([phone]) with questions. This reportwas electronically signed by: Marcie Edge MD 04/20/2019 10:44 PMAssessment and Plan:68-year-old male w ith extensive past medical history who has had feedingjejunostomy placed 6 months a go. Postoperative course was complicated byseepage of acetic fluid through the in cision and led to ventral herniaformation.Now patient is having aspiration issues.Surg ical consult was obtained for placement of jejunostomy tube to preventaspiration pn eumonitis.Patient is very high risk candidate f from surgical standpoint due to hismed ical comorbidities.We reviewed his CT scan with the radiologistWe will discussed wi th patient's healthcare proxyFurther treatment to be decided based on the dis cussion with healthcare proxyContinue current care for nowThank you for allowing me to participate in this patients care and please callme on [phone] with questions an d concerns Kareen Mills MDJanuary 20194:49 PM Name Value Range Interpretation Code Description Data Harriett rce(s) Supporting Document(s ) ID Date Data Source [id number] 04/21/2019 04:20:06 PM EST [facility] Feedings started at 30ml/hr. Name Value Range Interpretation Code Description Data Harriett rce(s) Supporting Document(s ) ID Date Data Source [id number] 04/21/2019 03:16:03 PM [facility] RECOMMENDATIONS:Osmolite 1.5 at 25 mL/hr progressing toward goal rate of 55 mL/hr and 100 mLfree water flush q 3 hr if no IVFN UTRITION ASSESSMENT MST ScreenSubjective: Pt non-verbal; EN not yet started. 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) Pneumonia Psychiatric disor bassem schizophrenia Pulmonary emboli (HCC) Schizophrenia (HCC)Diet Order: Osmolite 1.5 at 30 mL/hr, advance 10 mL/hr q 8 hr, goal rate 50mL/hr, ProStat BIDActive Ord ersThere are no active orders of the following types: Diet.Allergies: Patient has no known allergies.Labs: 04/20 Glu 139 Creat 0.35Nutritionally Significant Meds : ProtonixAssessmentLast 3 Recorded Weights in this Encounter 04/19/19 0959 04/20/192127Weight: 46.7 kg (103 lb) 57.5 kg (126 lb 11.2 oz)Height: 5' 2" (157.5 cm)Body mas s index is 23.17 kg/m .UBW: 125-135 lb (chart review 01/2019)%UBW: 96-101IBW: 118 lb %IBW: 106Wt Readings from Last 3 Encounters:04/20/19 57.5 kg (126 lb 11.2 oz)04/16/19 46.7 kg (103 lb)04/06/19 47.1 kg (103 lb 14.4 oz)Nutrition Focused Physic al Assessment:[] AcceptableTemple Region Muscle Wasting-ModerateClavicle Region M uscle Wasting-ModerateOral/GI Issues:+PEJSkin:Wound to scrotum (per fl owsheet); consult placed to wound careBraden score 9Edema:Peripheral Vascular (WDL): Exceptions to Within Defined LimitsLUE: 1+Appetite: n/a% Meal Intake: NPONo data found.Fluid Intake:Intake/Output Summary (Last 24 hours) at 04/21/2019 1457Last pan a filed at 04/21/2019 1304Gross per 24 hourIntake -Output 1250 mlNet -1250 mlNu trition Rx: 1725-2010kcal; 72-86g protein (1.25-1.5g/kg); 1725-2010ml fluid(1ml/melisa al)[based on: 30-35 Kcal/kg]% Estimated Energy Needs Met: 0%% Estimated Protein Needs Met: 0%% Fluid Needs Met: UTAEducation Needs: [x] Not indicated at this t jose alejandro [] Indicated at this timeNutrition DiagnosisIncreased protein and energy ne eds related to wound healing as evidenced byscrotal woundIntervention:Suggest EN: Osmolite 1.5 at 25 mL/hr progressing toward goal rate of 55 mL/hr(1980 kcal, 83 gm p ro, 269 gm CHO, 65 gm fat, 1006 mL water) and 100 mL freewater flush q 3 hr if no IVFG oals:Pt meeting 80% nutrient needs within 3-7 daysMonitoring and EvaluationFollow EN/P N RxSkin integrityDischarge Planning:EN as recommended at SNF [x] No cultural, rel igious, or ethnic dietary needs identified [] Cultural, quaker and ethnic food pre ferences identified and addressed [] Participated in care plan, discharge jocelyn nning/Interdisciplinary roundsAlexa R Sunny, RD Name Value Range Interpretation Code Description Data Harriett rce(s) Supporting Document(s ) ID Date Data Source [id number] 04/21/2019 02:54:27 PM EST [facility] Consult NotePatient: Evelio Vieraesperanza Sex: male DOA: 04/19/2019Date of : 1950 A ge: 68 y.o. LOS: LOS: 2 daysHPI:Evelio Carlin is a 68 y.o. m fuentes who has been seen for evaluation of scrotalskin breakdown. [facility] with [facility]. He isawake but non verbal with limited mobi lity. His family is at the bedside and notaware of any pressure injuries. He is on a low air loss surface with preventivecare maintained. 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 No pertinent family history.So cial HistorySocioeconomic History Marital status: SINGLE Spouse name: Not on file Number of children: Not on file Years of education: Not on file Highest educatio n level: Not on fileTobacco Use Smoking status: Never Smoker Smokeless tobacco: Never UsedSubstance and Sexual Activity Alcohol use: No Drug use: NoOther Topic s ConcernCurrent Facility-Administered MedicationsMedication Dose Route Frequen cy acetaminophen (TYLENOL) tablet 650 mg 650 mg Oral Q4H PRN vancomycin (VANCOCI N) 1,000 mg in 0.9% sodium chloride 250 mL IVPB 1,000 mgIntraVENous Q12H sodium c hloride (NS) flush 5-10 mL 5-10 mL IntraVENous PRN albuterol-ipratropium ( DUO-NEB) 2.5 MG-0.5 MG/3 ML 3 mL Nebulization Q4H RT budesonide (PULMICO RT) 500 mcg/2 ml nebulizer suspension 500 mcg NebulizationBID RT pantoprazole (TN OTONIX) 40 mg in 0.9% sodium chloride 10 mL injection 40 mgIntraVENous DAILY acety lcysteine (MUCOMYST) 100 mg/mL (10 %) nebulizer solution 400 mg 4 mLInhalatio n BID cinacalcet (SENSIPAR) tablet 60 mg 60 mg Oral DAILY ALPRAZolam (XANAX) tablet 0.5 mg 0.5 mg Per G Tube QHS heparin (porcine) injection 5,000 Units 5,000 U nits SubCUTAneous Q12H lamoTRIgine (LaMICtal) tablet 50 mg 50 mg Per G Tub e Q12H dextrose 5 % - 0.45% NaCl infusion 70 mL/hr IntraVENous CONTINUOUS piperac illin-tazobactam (ZOSYN) 3.375 g in 0.9% sodium chloride (MBP/ADV) 100mL MBP 3.3 75 g IntraVENous Q8HNo Known AllergiesVisit VitalsBP (!) 109/92 (BP 1 Location: Righ t arm, BP Patient Position: At rest;Head ofbed elevated (Comment degrees))Pulse 7 1Temp 98 F (36.7 C)Resp 20Ht 5' 2" (1.575 m)Wt 57.5 kg (126 lb 11.2 oz)SpO2 97%BMI 23.17 kg/m Labs ReviewedRadiology:Xr Abd (kub)Result Date: 04/05/2019XR ABD (KUB) CLINICAL INDICATION PROVIDED:. "assess J tube position."TECHNIQUE.: An initial AP image of the abdomen was acquired. Additional APimages of the abdomen were acquired after the hand-injection of a small volumeof radiopaque contrast by the siri ent's nurse into the patient's J-tube.COMPARISON:. 04/02/2019. FINDINGS :. The tip of the 2 projects over the midabdomen, at the level of the mid jeju num. Post injection images demonstrateopacification of loops of mid small bowel. There is no extraluminal contrastappreciated. A large volume of s tool projects over the distal colon/rectum.Densities project over the lower lungs, right greater than left. Considercorrelation with chest radiograp hs.IMPRESSION:. Injected radiopaque contrast appears to be contained within thelumen of the mid small bowel. There is no evidence of extraluminal contrast.Additional find ings and recommendations as above.Xr Abd (kub)Result Date: 04/02/2019KUB 2 view(s ) History: Evaluate J-tube. Comparison: 11/22/2018. There is a newJ-tube overlyin g the mid abdomen with kinking involving its superior andinferior portion overlying t he mid abdomen. These findings were discussed withmale nurse Jacquelyn at 3:40 PM today.. Th ere is mild ileus of the small bowel butthere is no evidence of obstruction, radiopaqu e gallstones, or left kidneystones or an appendicolith. There are possible right kidney stones. Absence ofan appendicolith it does not exclude appendicitis. CT is sug gested if clinicallyindicated. Old rib fractures are noted.IMPRESSION: Kinking of J-tube in 2 locations. Possible right kidney stonesIleus.Ir Picc Insert Wo Por t Over 5 Years Wo ImgResult Date: 04/01/2019IR PICC INSERT WO PORT OVER 5 YEARS WO IMG CLINICAL INDICATION PROVIDED.:"midline." Medical necessity f or vascular access. PROCEDURE: After beinginformed of the risks, benefits, po tential alternatives to the procedure theinformed consent was obtained. The pa tient was placed on the table the supineposition. The right upper extremit y was prepped and draped in the normal sterilefashion. Ultrasound interrogation was performed of the right upper extremity.Images were obtained. A locat ion was chosen over the right brachial vein abovethe antecubital fossa. Lidocaine so lution was used to anesthetize the scan.Access was gained under ultrasound guidance using a 21-gauge thin-walled needle.A 0.018 a wire was advanced under fluoroscopic guidance into the right axillaryvein. The needle was exchanged o lani a wire for the midline dilator and sheath.The dilator and wire were removed leaving the sheath in situ. Through the sheatha 5 Congolese double-lumen 20 cm midl ine catheter was placed. The peel-away sheathwas removed. The catheter was sewn into position using 2-0 silk sutures. Thepatient tolerated the procedure. Ther e were no complications at the time of theprocedure. FINDINGS: Ultrasound inter rogation revealed a widely patent brachialvein above the antecubital fossa . A 5 Congolese dual-lumen 20 cm midline catheterwas placed. The tip was placed i n good position over the right axillary vein.IMPRESSION: 5 Congolese dual-lumen mid line catheter placed with tip positioned overthe right axillary vein.Ct Chest Abd Pelv Wo ContResult Date: 04/20/2019Referring Physician: MILI HILLS Patient Name: EVELIO CARLIN FINAL REPORTFROM [facility] EXAM: CT chest without contrast and CT abdomen pelviswithout contrast DATE OF EXAM: 2019-04-20 20:52:12 IMAGES: 681 HI STORY: reducedbreath sounds right lung, LLQ tenderness Comparison: 03/14/19 and FINDINGS: Axial images of the chest, abdomen and pelvis are obtained without ivcontrast. Chest: Mediastinal assessment is limited without contrast. Imagequality l imited by artifacts. Patchy lung opacities right greater than leftsimilar to prior. Small pleural effusions. Vascular including coronarycalcifications. Mediastinum appe ars shifted to the right. Left hemidiaphragm iselevated. Abdomen and pelvis: Nonspeci fic bowel pattern, with post surgicalchanges on the left. No definite free air. Organ assessment limited without ivcontrast. No significant free fluid or free air. No b owel obstruction or abscessseen. Catheter and air in the bladder which is not well ass essed. Left hiphardware partially seen with old fracture deformity. G-J tube is pres ent.Ventral hernia right of midline at abdominal wall with multiple small bowel loops without obstructive pattern. Mild right muscle swelling with possiblehematoma an d calcification at right groin image 117/120. Degenerative bonychanges. Multiple likel y chronic compression deformities at thoracic and lumbarspine. Bilateral L5-S1 spondyl olysis and anterolisthesis.IMPRESSION: Right greater than left lung infiltrates and e ffusions. No bowelobstruction. 2 cm hyperdensity at a bowel loop in left pel vis image 90/120,possibly ingested material, or a tube fragment or post surgical charles ge. Ventralabdominal hernia seen. See above. One or more of the following dose reduct iontechniques were used: automated exposure control, adjustment of the mA and/or kVa ccording to patient size, use of iterative reconstructive technique. THISDOCUMENT H BEEN ELECTRONICALLY SIGNED Marcie Edge MD 04/20/2019 22:43 GINA VerdePlease call Katja berger Wireless Consultant [phone]) with questions. This reportwas electronically signed by: Marcie Edge MD 04/20/2019 10:44 PMXr Chest PortResult Date: 04/19/2019Hist ory: Respiratory difficulty. FINDINGS: A frontal portable view of the chestis sub mitted for interpretation and is compared to the prior study of04/06/2019. EKG leads overlie the chest. A right-sided midline catheter is notedin situ. The cardiac si lhouette measures at the upper limits of normal. There ispatchy opacity noted at the lung bases, left greater than right, which may beinfiltrative or atelectatic in nature. A small left pleural effusion is noted.Mediastinal and hilar structures a re unremarkable.IMPRESSION: Basilar infiltrative change left greater than ri ght. Small leftpleural effusion.Xr Chest PortResult Date: 04/06/2019CHEST one vie w HISTORY: Pneumonia. COMPARISON: 03/25/2019. There is a poorinspiratory effort which compromises this interpretation. A repeat study issuggested. There is discoid atel ectasis and/or subsegmental left lower lobeatelectasis along the left hemidiaph ragm. .There is no gross evidence ofcongestion, effusions or pneumothorax. IMPRESSION: Possible left lower lobe atelectasis. Poor inspiratory effort.Xr Chest PortResult Date: 03/25/2019CHEST one view HISTORY: Fever. Reflux. Gastrostomy . COMPARISON: 03/11/2019.There is a poor inspiratory effort which compromises thi s interpretation. Arepeat study is suggested. There is discoid atelectasis and/or lef t lower lobeinfiltrate.There is no gross evidence of congestion, other infiltrate s,effusions or pneumothorax.IMPRESSION: Possible left lower lobe infiltrate. Poo r inspiratory effort.Review of SystemsReview of systems not obtained due to patient f actors.AssessmentPHYSICAL EXAM:General:[x]WD []Cachectic []Thin [x]Obe se[]Disheveled []Ill Appearing []Critical [x]Chronic[x]No acute Di stressHEENT:[x]Normal Cephalc/AtraumaticHearing Intact to Voic e: [x]Yes []NoRespiratory: []Wheezing [x]No Wheezing, moist coughCardiac:LE Ed ivelisse []Yes [x]NoAbdominal:[x]Soft / Non distended / PEGSkin:Scrotal skin with er ythematous excoriation and several areas of denuded skin.Sacral area with 0.9 cm sammie meter defect, appears chronic, no erythema orinduration, no fluctuance.Heels have i ntact skinPulses:[x]Pedal Pulses, not palpated, skin is pink and warmNeuro:[x] Alert , non verbal []Limited mobilityFollows Command []Yes [x]N oImpressionScrotal rash/excoriation POAActive Problems: Pneumonia (11/08/2018) Acute hypoxemic respiratory failure (HCC) (03/25/2019) COPD with acute exacerbati on ([facility]) (04/19/2019) Acute on chronic respiratory failure with hypoxia and hyp ercapnia ([facility])(04/19/2019)PlanBAZA AF to the scrotal rash twice dailyContinue prevent britni and supportive carePlease re consult if situation changes. Name Value Range Interpretation Code Description Data [facility](s) Supporting Document(s ) ID Date Data Source [id number] 04/21/2019 01:53:15 PM [facility] Problem: Falls - Risk ofGoal: *Absence o f FallsDescriptionDocument Samra Fall Risk and appropriate interventions in the jhon wsheet.Outcome: Progressing Towards GoalNote: Fall Risk Interventions:Mentation Interv entions: Door open when patient unattended, Room close tonurse's stationMedication I nterventions: Evaluate medications/consider consulting pharmacyElimination Intervent ions: Toileting schedule/hourly roundsProblem: Patient Education: Go to Patient Education ActivityGoal: Patient/Family EducationOutcome: Progres sing Towards GoalProblem: Tissue Perfusion - Cardiopulmonary, AlteredGoal: *Optimize tissue perfusionOutcome: Progressing Towards Goal Name Value Range Interpretation Code Description Data [facility](s) Supporting Document(s ) ID Date Data Source [id number] 04/21/2019 12:56:44 PM [facility] The patient's Clinical Indicators includ e:Acute respiratory failure and sepsis noted in documentation. Please link allorgan t o sepsis ifapplicable.>> Acute respiratory failure due to sepsis>> Acute respirator y failure due to other (please specify)>> Other>> Unable to determine>> Unknown Name Value Range Interpretation Code Description Data [facility](s) Supporting Document(s ) ID Date Data Source [id number] 04/21/2019 11:15:22 AM [facility] Care Management InterventionsPCP Verifie d by CM: YesMode of Transport at Discharge: BLS([facility] )Transition of Care Consult (CM Consult): Discharge PlanningMyChart Signup: NoDischarge Dura ble Medical Equipment: NoPhysical Therapy Consult: NoOccupational Therapy Consult: NoSpeech Therapy Consult: NoCurrent Support Network: Nursing Facility([facility] )The Patient and/or Patient Engineering Group Manager was Provided with a Choice of Provideran d Agrees with the Discharge Plan?: YesFreedom of Choice List was Provided with Basic D ialogue that Supports thePatient's Individualized Plan of Care/Goals, Treat ment Preferences and Sharesthe Quality Data Associated with the Providers?: YesVeter an Resource Information Provided?: RefusedDischarge LocationDischarge Place ment: senior living facility([facility] )CASE MANAGEMENT PSYCHOSOCIAL ASSESSMENT Evelio Carlin Admission Date: 04/19/2019MRN: [id number] of : 1950urrent date: 04/21/2019DISCHARGE PLAN: Pt is fro m [place] [facility], pt is non verbal and nonambulatory. Per liaison pt can return at discharge. TC to pt relative [phone], they would like pt t o return to [place] at discharge. Theyfamily will be around for the next t wo weeks. CM cclinked facility.Patient Information:Patients Preferred Name: IVELISSE Godinez Arrived Via: StretcherInformation Obtained From: Other (comment)(computer records: SNF papers)Patient Objects to Receiving Blood: UnknownMRSA Assessment: Admission from skilled care facility, Admission with open woundor drain ([facility]), No Known History of MRSAAuditory Impairment: NoneReadmit Risk ToolSupport Systems: Family member(s)Relationship with Primary Physician Group: Seen at least o ne time within thepast 6 monthsPCP: Mili Hills DOAdmitting Provider: ELIAN Gonzalez [facility] INCHOMECARE PRODUCTION HELPER: NAPayor: [place] / [place]/ Product Type: Med icare /Secondary Payor: @SECINSGROUPNAME@Acute hypoxemic respira tory failure (HCC) [J96.01]Acute on chronic respiratory failure with hypoxia and hyp ercapnia (HCC) [J96.21,J96.22]COPD with acute exacerbation (HCC) [J44.1]Pneumonia [J18 .9]Patient Active Problem ListDiagnosis Code 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 COPD (chronic obstructive pulmonary disease) (HCC) J44.9 Acute respiratory distress R06.03 Pneumonia J18.9 COPD exacerbation (HCC) J44.1 Sepsis due to undetermined organism ([facility]) A41.9 Generalized anxiety disorder F41.1 Acute respiratory failur e with hypoxia ([facility]) J96.01 Pneumonia involving right lung J18.9 Hyponatremia E87.1 SOB (shortness of breath) R06.02 Pressure injury of right heel, stage [address] [facility]) L89.612 Leg wound, right, initial encounter S81.801A Acute hypoxemic resp iratory failure ([facility]) J96.01 COPD with acute exacerbation ([facility]) J44.1 Acute on chron ic respiratory failure with hypoxia and hypercapnia ([facility])J96.21, J96.22Social Hi storySubstance and Sexual ActivityAlcohol Use NoNumber of stairs into patient home:DME :Cohabitants:Abuse Screen:Physical Abuse/Neglect: Patient unable to answerS exual Abuse: Patient unable to answerVerbal Abuse: Patient unable to answerOther Abu se/Issues: Patient unable to answerINSURANCE INFORMATION: (Verification)Primary Note s: MedicareSecondary Notes: Medicaid [facility] Notes:No-Fault Notes:SS D Notes:Un-Insured Notes:Long-Term Care Insurance If Applicable Notes:Current Fu nctioning:Language barriers: Notes:Understanding nature/impact of ill ness: Notes:Ability to participate in plan: Notes:Realistic Problem solving and plan keith: Notes:Adequate coping skills: Notes:Sabianist/Cultural barriers: Notes :If unable to assess or not applicable: Notes:Suicide Assessment:Primary Diagnos is or Primary Complaint of an Emotional Behavior Disorder: NoPatient is Currentl y Experiencing Depression: NoSuicidal Ideation/Attempts: NoHomicidal Ideation/ Attempts: NoAlcohol/Drug Intoxication: NoHallucinations/Delusions: NoPending, A ctive, or Temporary Longterm Orders: NoAggressive/Inappropriate Behavior: NoR eadmit Risk:Support Systems: Family member(s)Relationship with Primary Physi chaya Group: Seen at least one time within themest 6 monthsRRAT Total Score: 26Adva nced Care Planning:Confirm Advance Directive: Yes, not on file(to be scanned on admiss ion)Does the patient have other document types: MOST/MOLST/POST/POLST(Wishes full code.)Discussed with the patient and all questions fully answered. Name Value Range Interpretation Code Description Data [facility] rce(s) Supporting Document(s ) ID Date Data Source [id number] 04/21/2019 07:51:56 AM [facility] Verbal shift change report given to a amtilda graham rn (oncoming nurse) by - BUSHRA COONEYRN (offgoing nurse). Report given with SBA R, Kardex, MAR and Recent Results. Name Value Range Interpretation Code Description Data [facility](s) Supporting Document(s ) ID Date Data Source [id number] 04/20/2019 10:44:00 PM [facility] Referring Physician: MILI miller Name: EVELIO RUBININAL REPORT FROM [facility]ING ON [facility]: CT chest without co ntrast and CT abdomen pelvis withoutcontrastDATE OF EXAM: 2019-04-20 20:52:12IMAGES: 681HISTORY: reduced breath sounds right lung, LLQ tendernessCompari son: 03/14/19 and 12/21/18FINDINGS: Axial images of the chest, abdomen and pelvis areobtained without iv contrast.Chest: Mediastinal assessment is limited withou t contrast. Imagequality limited by artifacts. Patchy lung opacities right g reaterthan left similar to prior. Small pleural effusions. Vascularincluding cor onary calcifications. Mediastinum appears shifted tothe right. Left hemidiaphragm is elevated.Abdomen and pelvis: Nonspecific bowel pattern, with post surgicalchanges on the left. No definite free air. Organ assessmentlimited without iv contrast. N o significant free fluid or freeair.No bowel obstruction or abscess seen. Catheter an d air in thebladder which is not well assessed. Left hip hardware partiallysee n with old fracture deformity. G-J tube is present. Ventralhernia right of midline at abdominal wall with multiple smallbowel loops without obstructive pattern. Mild right muscleswelling with possible hematoma and calcification at right groinimage 11 7120. Degenerative bony changes. Multiple likely chroniccompression deformities at thoracic and lumbar spine. BilateralL5-S1 spondylolysis and anterolisthesis.IMPRES ELIO: Right greater than left lung infiltrates and effusions.No bowel obstr uction. 2 cm hyperdensity at a bowel loop in leftpelvis image 90/120, possibly ingest ed material, or a tubefragment or post surgical change.Ventral abdominal hernia seen.See above.One or more of the following dose reduction techniques were used:auto mated exposure control, adjustment of the mA and/or kVaccording to patient size, use of iterative reconstructivetechnique.THIS DOCUMENT HAS BEEN ELECTRONICALLY SIGNEDF gerald Edge MD04/20/2019 22:43 ESTM.D. Please call [employer] Consultant [phone] ([phone]) withquestions.This report was electronically signed by:Marcie Edge MD 04/20/2019 10:44 PM Signing date/time: 04/20/2019 10:44 PMSigned by: MARCIE EDGE Name Value Range Interpretation Code Description Data Harriett rce(s) Supporting Document(s ) ID Date Data Source 36N*ENCOUNTER 04/20/2019 09:07:34 PM EST [facility] [id number] [facility] [address] [facility] [address] [phone] Evelio Carlin (Male) [id number] ES I 2 ED Dispo:ADMIT Chief Complaint: Respiratory Distress Diagnosis: Acute exacerbation of chronic obstructive pulmonary disease (CO PD) (HCC) [] Acute hypoxemic respiratory failure (HCC) [] Pneumonia of both lower lobes due to infectious organism (HCC) [] Current Providers: Attending : Gaston Marinelli; Eloisa Hills Consulting Provider: Eloisa Hills; Nicole Monae; Sabrina Dudley; Mireya Gomez Nurse Practitioner: Devang Coleamn Primary Nurse: Gaston Reynolds; Devang Onofre; Eloisa Phoenix; Kd Ledezma; Eloisa Bravo Tech: CAESAR AliceaN: [id number] Print [employer] [phone] - [facility] [address] Ed Medva MrnMRN: [id number] [employer] [phone] [id number] - [facility] [address] Ed Medva Age SexDOB 1950 AGE 68 SEX Male Primary Care Provider: Mili Hills DO Zzbdjtezp: (No Known Allergies)Date Reviewed: 04/20/2019Reviewed by: Mili Hills DO - Review CompleteED Provider Notes: All notesHNO ID: [id number]: Neeta Coleman NPServi ce: Emergency MedicineAuthor Type: Nurse PractitionerFiled: 04/19/19 1233Note Text: -----Attestation signed by Faisal Marinelli MD at 04/19/19 14 32I was personally available for consultation in the Emergency Department. I havereviewed the chart and agree with the documentation recorded by the midlevelprovider, including the assessment, treatment plan , and disposition. HPI68 yo male with history of schizophrenia, mental retarda tion, dysphagiawith PEG, COPD is brought to the ED via EMS from [facility] forevaluation of respiratory distress. 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 No pertinent family history.Social HistorySocioeconomic History Marital st atus: SINGLE Spouse name: Not on file Number of children: Not on file Years of education: Not on file H ighest education level: Not on fileOccupational History Not on fileSocial Needs Financial resource str ain: Not on file Food insecurity: Worry: Not on file Inability: Not on file Transportation needs: Medical: Not on file Non-medical: Not on fileTobacco Use Smoking status: Never Smoker Smokeless tobacco: Never U sedSubstance and Sexual Activity Alcohol use: No Drug use: No Sexual activity: Not on fileMalinda Navarro hysical activity: Days per week: Not on file Minutes per session: Not on file Stress: Not on fileRelation ships Social connections: Talks on phone: Not on file Gets together: Not on file Attends quaker service: Not on file Active member of club or organization: Not on file Attends meetings of clubs or organ izations: Not on file Relationship status: Not on file Intimate partner violence: Fear of current or ex partner: Not on file Emotionally abused: Not on file Physically abused: Not on file Forced sexual activ ity: Not on fileOther Topics Concern Service Not Asked Blood Transfusions Not Asked Caffeine C oncern Not Asked Occupational Exposure Not Asked Hobby Hazards Not Asked Sleep Concern Not Asked Stress C oncern Not Asked Weight Concern Not Asked Special Diet Not Asked Back Care Not Asked Exercise Not Asked Bike Helmet Not Asked Seat Belt Not Asked Self-Exams Not AskedSocial History Narrative Not on fi Jose RamonERGIES: Patient has no known allergies.Review of SystemsUnable to perform ROS: Patient nonverbalVitals: 0959 04/19/19 1016 04/19/19 1037BP: (!) 85/68 91/46Pulse: 91 80Resp: 28 (!) 32Temp: 98.2 F (36.8 C )SpO2: 95% 95% 98%Weight: 46.7 kg (103 lb)Height: 5' 2" (1.575 m)Physical ExamVitals signs and nursing note reviewed.Constitutional: General: He is not in acute distress. Appearance: He is well-developed. He is cachectic. He is ill-appearingand toxic-appearing.HENT: Head: Normocephalic and atraumatic.Eyes: Gen eral: No scleral icterus.Neck: Musculoskeletal: Neck supple.Cardiovascular: Rate and Rhythm : Normal rate and regular rhythm. Pulses: Normal pulses.Pulmonary: Effort: Respiratory distress present. Comments: Decreased breath sounds+ tachypneaAbdominal: General: Bowel sounds are normal. There is no dis tension. Hernia: A hernia is present. Comments: PEGMusculoskeletal: Comments: Contract ed extremitiesSkin: General: Skin is warm and dry. Capillary Refill: Capillary refill takes 2 to 3 se conds. Coloration: Skin is pale.Neurological: Mental Status: Mental status is at baseline. He is leth argic.MDMNumber of Diagnoses or Management OptionsAcute exacerbation of chronic obstructive pulmonary disease (COPD) (HCC):Acute hypoxemic respiratory failure (HCC):Pneumonia of both lower lobes due to infectious organ ism (HCC):Amount and/or Complexity of Data ReviewedClinical lab tests: ordered and reviewedTests in the radiolo gy section of CPT : ordered and reviewedDecide to obtain previous medical records or to obtain history fro msomeone other than the patient: yesObtain history from someone other than the patient: yesReview and summariz e past medical records: yesDiscuss the patient with other providers: yesIndependent visualization of images, tracings, or specimens: yesRisk of Complications, Morbidity, and/or MortalityPresenting problems: moderateDi agnostic procedures: moderateManagement options: moderateCritical CareTotal time providing critical care: 30-74 minutesPatient ProgressPatient progress: other (comment) (Guarded )ProceduresI, Neeta Olmoz, rev iewed the patient's past history, allergies and homemedications as documented in the nursing chart.I have r eviewed the following home medications:Prior to Admission medicationsMedication Sig Start Date End Date Taking? Authorizing ProviderlamoTRIgine (LAMICTAL) 25 mg rapid dissolve tablet TAKE 2 TABLETS BY MOUTHE VERY 12 HOURS 03/18/19 Provider, Ediezinc oxide 20 % ointment Apply to affected area as needed for Sk inIrritation. Provider, Edieomeprazole (PRILOSEC) 2 mg/mL susp 2 mg/mL oral suspension (compounded )Take 20 mL by mouth daily. 04/06/19 Christos Lopez MDheparin sodium,porcine (HEPARIN, PORCINE,) 5,000 unit/mL injection 1 mL bySubCUTAneous route every twelve (12) hours every twelve (12) hours.03/17/19 Mili Hills DOmultivitamin (MULTI-DELYN, WELLESSE) liqd 5 mL by Per G Tube route daily.03/17/19 Shaylee Hills DOacetaminophen (TYLENOL) 32MG/ML soln solution Take 20.3 mL by mouth everyfour (4) hours as needed for Pain or Fever. 03/17/19 Mili Hills DOacetylcysteine (MUCOMYST) 100 mg/mL (10 %) nebulizer solution Take 4 mL byinhalation two (2) times a day. Provider, Edieclorazepate (TRANXENE) 3.75 mg tablet 1 Tab by Per G Tube route nightly.Max Daily Amount: 3.75 mg. 12/30/18 Mili Hills DOcinacalcet (SENSIPAR) 30 mg tablet Take 2 Tabs by mouth daily.Patient taking differently: 30 mg daily. Via G tube 12/14 10/31 Mili Hills DOalbuterol- ipratropium (DUO-NEB) 2.5 mg-0.5 mg/3 ml nebu 3 mL byNebulization route e very six (6) hours. Every 6 hours while awakePatient taking differently: 3 mL by Nebulization route every four (4)hours as needed. Every 6 hours while awake 12/30/18 Mili Hills DObudesonide (PULMICORT ) 0.5 mg/2 mL nbsp 2 mL by Nebulization route two (2)times a day. 12/30/18 Mili Hills, DOLabs:Recent Results (from the past 96 hour(s))EKG, 12 LEAD, INITIAL Collection Time: 04/19/19 9:58 AMResult Value Ref Range Ventricular Rate 92 BPM Atrial Rate 93 BPM P-R Interval 110 ms QRS Duration 95 ms Q-T Interval 343 ms Q TC Calculation (Bezet) 424 ms Calculated P Cambridge 44 degrees Calculated R [place] 26 degrees Calculated T Cambridge -44 degrees Diagnosis Sinus rhythmBorderline short TN intervalLVH with secondary repolarization abnormalityProb able anterior infarct, age indeterminateAbnormal T, consider ischemia, inferior leadsLACTIC ACID Collection Patria e: 04/19/19 10:15 AMResult Value Ref Range Lactic acid 2.6 (HH) 0.4 - 2.0 MMOL/LCBC WITH AUTOMATED DIFF Collec tion Time: 04/19/19 10:15 AMResult Value Ref Range WBC 8.1 4.8 - 10.6 K/uL RBC 3.78 (L) 4.70 - 6.00 M/uL HGB 1 1.8 (L) 14.0 - 18.0 g/dL HCT 36.7 (L) 42.0 - 52.0 % MCV 97.1 (H) 81.0 - 94.0 FL MCH 31.2 27.0 - 35.0 PG MCHC 3 2.2 30.7 - 37.3 g/dL RDW 16.6 (H) 11.5 - 14.0 % PLATELET 247 130 - 400 K/uL MPV 9.4 9.2 - 11.8 FL NRBC 0.0 0 PE R 100 WBC ABSOLUTE NRBC 0.00 0.0 - 0.01 K/uL NEUTROPHILS 78 (H) 48.0 - 72.0 % LYMPHOCYTES 9 (L) 18.0 - 40.0 % M ONOCYTES 12 2.0 - 12.0 % EOSINOPHILS 0 0.0 - 7.0 % BASOPHILS 0 0.0 - 3.0 % IMMATURE GRANULOCYTES 1 (H) 0 - 0. 5 % ABS. NEUTROPHILS 6.4 2.3 - 7.6 K/UL ABS. LYMPHOCYTES 0.7 (L) 0.9 - 4.2 K/UL ABS. MONOCYTES 1.0 0.1 - 1.7 K/ UL ABS. EOSINOPHILS 0.0 0.0 - 1.0 K/UL ABS. BASOPHILS 0.0 0.0 - 0.4 K/UL ABS. IMM. GRANS. 0.1 0.0 - 0.17 K/U L DF AUTOMATEDMETABOLIC PANEL, COMPREHENSIVE Collection Time: 04/19/19 10:15 AMResult Value Ref Range Sodium 13 4 (L) 136 - 145 mmol/L Potassium 3.7 3.5 - 5.1 mmol/L Chloride 92 (L) 98 - 107 mmol/L CO2 37 (H) 21 - 32 mmol/ L Anion gap 9 (L) 10 - 20 mmol/L Glucose 118 (H) 74 - 106 mg/dL BUN 16 7 - 18 mg/dL Creatinine 0.69 (L) 0.70 - 1.30 mg/dL GFR est AA >60 >60 ml/min/1.73m2 GFR est non-AA >60 >60 ml/min/1.73m2 Calcium 9.8 8.5 - 10.1 mg/ dL Bilirubin, total 0.2 0.2 - 1.0 mg/dL ALT (SGPT) 12 (L) 13 - 61 U/L AST (SGOT) 21 15 - 37 U/L Alk. phosphata se 75 45 - 117 U/L Protein, total 6.3 (L) 6.4 - 8.2 g/dL Albumin 2.1 (L) 3.5 - 4.7 g/dL Globulin 4.2 1.7 - 4. 7 g/dL A-G Ratio 0.5 (L) 0.7 - 2.8TROPONIN I Collection Time: 04/19/19 10:15 AMResult Value Ref Range Troponin- I, Qt. 0.05 0.00 - 0.05 NG/MLBLOOD GAS, ARTERIAL Collection Time: 04/19/19 10:45 AMResult Value Ref Range pH 7.42 7.35 - 7.45 PCO2 55 (H) 32 - 48 mmHg PO2 86 83 - 108 mmHg CO2, TOTAL 37 (H) 19 - 24 mmol/L BICARBONATE 36 (H) 21 - 28 mmol/L O2 SAT 99 (H) 94 - 98 % BASE EXCESS 9.3 (H) 0 - 3 mmol/L SITE RIGHT RADIAL MIRANDA'S TEST POSITIVE DEVICE BIPAP FIO2 70.0 % MODE BIPAP PEEP/CPAP 5 PRESSURE SUPPORT 14 RATE 20 Performed by [id number] iology:Xr Chest PortResult Date: 04/19/2019History: Respiratory difficulty. FINDINGS: A frontal portable view of thechest is submitted for interpretation and is compared to the prior studyof 04/06/2019. EKG leads overlie the chest. A right-sided midline catheteris noted in situ. The cardiac silhouette measures at the upper limits ofnormal. There is patchy opacity noted at the lung bases, left greater thanright, which may be inf iltrative or atelectatic in nature. A small leftpleural effusion is noted. Mediastinal and hilar structures areunremarkable.IMPRESSION: Basilar infiltrative change left greater than right. Smallleft pleural effusion.E K:58 SR with inverted T wave in lead III, V1, V3, V4, V6. A change fromprevious EKG dated 03/25/2019. Q wav e is present in lateral leads.Differential Diagnosis:Differential Diagnosis includes but is not limited to :Acute respiratory failureCOPD exacerbationSepsisPneumoniaED Course:68 yo unresponsive male [facility] the ED from [facility]F via EMS for evaluationof respiratory distress, unknown duration of time. Hx of COPD.Patient's o xygen saturation is 82% on 100% NRB mask with respiratory rateupwards of 40 breaths per minute. Patient placed on Bi Pap soon afterarrival.Septic bundle, Zosyn and VancomycinABG, Tylenol suppository PRN every 4 hours fo r feverDuo Neb, Eoulwzvful64:58 new T wave inversion in leads III, V1, V3, V4, -6 possibly due todemand ischemi a. Troponin added to labs.10:45 ABG consistent with COPD exacerbation. PCO2 5511:38 AMOxygen saturation is impr kathie. Will repeat ABG and potentially lower UPE7ycqq 70 %. Patient appears to be breathing easier with BiPa p. Dr Hillsconsulted for admission orders.CXR demonstrates bibasilar infiltrates. No trwygqoxwtee45:32 PMPati ent is endorsed to Dr Hills for admissionFinal Impression/Diagnosis:Encounter Diagnoses ICD-10-CM ICD-9-CM1. Acute exacerbation of chronic obstructive pulmonary disease (COPD)(HCC) J44.1 491. 212. Acute hypoxemic respiratory failure ([facility]) J96.01 518.813. Pneumonia of both lower lobes due to inf ectious organism ([facility]) J18.1483.8Patient condition at time of disposition: Neeta Stern,att est that [facility] the [facility] of Faisal Marinelli MD. I have o rdered andreviewed the diagnostic studies, unless otherwise noted.Neeta Coleman MSN, MEDIEVAL ENGLISH LITERATURE PROFESSOR-BC, ENP-RILEY Orders [id number] SEPSIS BUNDLE INITIATED IN ED [#[id number]] Priority: STAT Class: Hospital Performe d Standing Order Information Remaining Occurrences:0/1 Interval:CONTINUOUS Last release d:04/19/2019 Released orders: [place] Apr 19, 2019 9:51 AM by: NEETA COLEMAN [id number] SEPSIS BUNDL E INITIATED IN ED [#[id number]] Priority: STAT Class: Hospital Performed Released on: 04/19 9:51 AM CHELSIE NO VTE PROPHYLAXIS NEEDED [#[id number]] Priority: STAT Class: H ospital Performed Standing Order Information Remaining Occurrences:0/1 Interval:CONTIN UOUS Last released:04/20/2019 Released orders: SatApr 20, 2019 8:37 AM by: JUAN SCHULZ NO VTE PROPHYLAXIS NEEDED [#[id number]] Priority: STAT Class: Hospital Performe d Released on: 04/20/2019 8:37 AM [id number] CULTURE, BLOOD [#[id number]] Priority: STAT Class: ER Collect Specimen Source: Blood Standing Order Information Remaining Occurrences:0 /1 Interval:NOW Last released:04/19/2019 Released orders: Sun Apr 19, 2019 9:51 AM by: NEETA COLEMAN [id number] CULTURE, BLOOD [#[id number]] Priority: STAT Class: E R Collect Specimen Source: Blood Standing Order Information Remaining Occurrences:0/1 Inter seema:NOW Last released:04/19/2019 Released orders: Sun Apr 19, 2019 9:51 AM by: NEETA COLEMAN [id number] CULTURE, BLOOD [#[id number]] Priority: STAT Class: ER Collect Speci men Source: Blood Specimen Collected: 04/19/2019 10:15 AM Resulting Agency: [facility] Test ID: HBCS Released on: 04/19/2019 9:51 AM [id number] CULTURE, BLOOD [# [id number]] Priority: STAT Class: ER Collect Specimen Source: Blood Specimen Collected: 04/19/2019 10 :05 AM Resulting Agency: [facility] Test ID: HBCS Released on: 04/19/2019 9:51 AM [id number] CULTURE, BLOOD [#[id number]] Priority: STAT Class: ER Collect Speci men Source: Blood Standing Order Information Remaining Occurrences:0/1 Interval:ONE TI ME Last released:04/20/2019 Released orders: SatApr 20, 2019 2:12 PM by: NOA GOMEZ [id number] CULTURE, BLOOD [#[id number]] Priority: STAT Class: ER Collect Speci men Source: Blood Standing Order Information Remaining Occurrences:0/1 Interval:ONE TI ME Last released:04/20/2019 Released orders: SatApr 20, 2019 2:12 PM by: NOA GOMEZ [id number] CULTURE, BLOOD [#[id number]] Priority: STAT Class: ER Collect Speci men Source: Blood Specimen Collected: 04/20/2019 2:40 PM Resulting Agency: [facility] Test ID: HBCS Released on: 04/20/2019 2:12 PM [id number] CULTURE, BLOOD [# [id number]] Priority: STAT Class: ER Collect Specimen Source: Blood Specimen Collected: 04/20/2019 2 :47 PM Resulting Agency: [facility] Test ID: HBCS Released on: 04/20/2019 2:12 PM [id number] LACTIC ACID [#[id number]] Priority: STAT Class: ER Collect Sta nding Order Information Remaining Occurrences:0/2 Interval:EVERY 4 HRS Last release d:04/19/2019 Released orders: Sun Apr 19, 2019 12:05 PM by: NEETA COLEMAN Apr 19, 2019 9:51 AM by: NEETA COLEMAN [id number] URINALYSIS W/ RFLX MICROSCOPIC [#[id number]] Prior ity: STAT Class: ER Collect Standing Order Information Remaining Occurrences:0/1 Inter seema:ONE TIME Last released:04/19/2019 Released orders: Sun Apr 19, 2019 9:51 AM by: NEETA LOZANO [id number] CBC WITH AUTOMATED DIFF [#[id number]] Priority: STAT Class: ER Collect Standing Order Information Remaining Occurrences:0/1 Interval:ONE TIME Last released:0 04/19/2019 Released orders: Sun Apr 19, 2019 9:51 AM by: NEETA COLEMAN [id number] METABOLIC PA SAADIA, COMPREHENSIVE [#[id number]] Priority: STAT Class: ER Collect Standing Order Information Remaining Occurrences:0/1 Interval:ONE TIME Last released:04/19/2019 Released orders : Sun Apr 19, 2019 9:51 AM by: NEETA COLEMAN [id number] LACTIC ACID [# [id number]] Priority: STAT Class: ER Collect Specimen Source: Plasma Specimen Collected: 04/19/2019 1 0:15 AM Resulting Agency: [facility] Test ID: LAC Released on: 04/19/2019 9:51 AM [id number] URINALYSIS W/ RFLX MICROSCOPIC [#[id number]] Priority: STAT Class: ER Collect Speci men Source: Urine Specimen Collected: 04/19/2019 4:56 PM Resulting Agency: [facility] Test ID: UA Released on: 04/19/2019 9:51 AM [id number] CBC WITH AUTOMATED DIFF [#[id number] ] Priority: STAT Class: ER Collect Specimen Source: Whole Blood Specimen Collected: 04/19/2019 10:15 AM Resulting Agency: [facility] Test ID: CBCXA Released on: 04/19/2019 9:51 AM [id number] METABOLIC PANEL, COMPREHENSIVE [#[id number]] Priority: STAT Class: ER Collect Specimen Source : Plasma Specimen Collected: 04/19/2019 10:15 AM Resulting Agency: [facility] Test ID: MPL Released on: 04/19/2019 9:51 AM [id number] BLOOD GAS, ARTERIAL [#[id number]] Priority: STAT Class: ER Collect Standing Order Information Remaining Occurrences:0/1 Inte rval:ONE TIME Last released:04/19/2019 Released orders: Sun Apr 19, 2019 9:51 AM by: NEETA SHELDON [id number] BLOOD GAS, ARTERIAL [#[id number]] Priority: STAT Class: E R Collect Released on: 04/19/2019 9:51 AM [id number] BLOOD GAS, ARTERIAL [#[id number]] Priority: Routine Class: ER Collect Resulting Agency: [facility] Test ID: [id number] Standing Order Information Remaining Occurrences:0/1 Released orders: SatApr 19, 2019 10:45 AM by: Automatic Batch Process [id number] BLOOD GAS, ARTERIAL [#[id number]] Priority: Routine Class: ER Collect Specimen Source: Arterial Blood Specimen Collected: 04/19/2019 10 :45 AM Resulting Agency: [facility] Test ID: ABGG1 Released on: 04/19/2019 10:45 A M [id number] TROPONIN I [#[id number]] Canceled Priority: Add On Class: ER Collect Canceled by [facility] on SatApr 19, 2019 12:07 PM Reason: Other Comment : Added to previous accession Standing Order Information Remaining Occurrences:0/1 Inter seema:ONE TIME Last released:04/19/2019 Released orders: SatApr 19, 2019 11:44 AM by: NEETA LOZANO [id number] TROPONIN I [#[id number]] Canceled Priority: STAT Blood in Lab Class: ER Collect Specimen Collected: 04/19/2019 11:45 AM Resulting Agency: [facility] Test ID: TROIP Canceled by [facility] on SatApr 19, 2019 12:07 PM Reason: Other Comment: Added to previous accession Released on: 04/19/2019 11:44 AM [id number] BLOOD GAS, ARTERIAL [#[id number]] Priority: STAT Class: ER Collect Standing Order Information Remaining Occurrences:0/1 Interval:ONE TIME Last released:04/19/2019 Released orders : SatApr 19, 2019 11:46 AM by: NEETA COLEMAN [id number] BLOOD GAS, ARTERIAL [# [id number]] Priority: STAT Class: ER Collect Released on: 04/19/2019 11:46 AM [id number] TROPONIN I [#[id number]] Priority: STAT Blood in Lab Class: ER Collect Resulting Agency : [facility] Test ID: TROIP Standing Order Information Remaining Occurrences:0 /1 Released orders: SatApr 19, 2019 10:15 AM by: Automatic Batch Process [id number] TROPON IN I [#[id number]] Priority: STAT Blood in Lab Class: ER Collect Specimen Sour ce: Plasma Specimen Collected: 04/19/2019 10:15 AM Resulting Agency: [facility] Test ID: TROIP Released on: 04/19/2019 10:15 AM [id number] LACTIC ACID [#[id number]] Priority: STAT Class: ER Collect Specimen Source: Plasma Specimen Collected: 04/19/2019 2:20 PM Resultin g Agency: [facility] Test ID: LAC Released on: 04/19/2019 12:05 PM [id number] BLOOD GAS, ARTERIAL [#[id number]] Priority: Routine Class: ER Collect Resulting Agency: [facility] Test ID: ABGG1 Standing Order Information Remaining Occurrences:0 /1 Released orders: SatApr 19, 2019 4:59 PM by: Automatic Batch Process [id number] BLOOD GAS, ARTERIAL [#[id number]] Priority: Routine Class: ER Collect Specimen Source: Rosette rial Blood Specimen Collected: 04/19/2019 4:59 PM Resulting Agency: [facility] Test ID: ABGG1 Released on: 04/19/2019 4:59 PM [id number] TROPONIN I [#[id number]] Priority: Routine Class: ER Collect Standing Order Information Remaining Occurrences:0/1 Inte rval:ONE TIME Last released:04/20/2019 Released orders: SatApr 20, 2019 1:22 AM by: MILI VERGARA [id number] CBC WITH AUTOMATED DIFF [#[id number]] Priority: Routine Class : ER Collect Standing Order Information Remaining Occurrences:0/1 Interval:ONE TI ME Last released:04/20/2019 Released orders: SatApr 20, 2019 1:22 AM by: PATRICIO HILLS [id number] MAGNESIUM [#[id number]] Priority: Routine Class: ER Collect Standing Order Information Remaining Occurrences:0/1 Interval:ONE TIME Last released:0 04/20/2019 Released orders: SatApr 20, 2019 1:22 AM by: MILI HILLS [id number] RENAL FUNC TION PANEL [#[id number]] Priority: Routine Class: ER Collect Standing Order Information Remaining Occurrences:0/1 Interval:ONE TIME Last released:04/20/2019 Released orders : SatApr 20, 2019 1:22 AM by: MILI HILLS [id number] TROPONIN I [# [id number]] Priority: Routine Class: ER Collect Specimen Source: Plasma Specimen Collected: 04/20/2019 4:30 AM Resulting Agency: [facility] Test ID: TROIP Released on: 04/20/2019 1: 22 AM [id number] CBC WITH AUTOMATED DIFF [#[id number]] Priority: Routine Class: ER Collect Sp ecimen Source: Whole Blood Specimen Collected: 04/20/2019 4:30 AM Resulting Agency: [facility] Test ID: CBCXA Released on: 04/20/2019 1:22 AM [id number] MAGNESIUM [#[id number]] Priority: Routine Class: ER Collect Specimen Source: Plasma Specimen Collected: 09/2019 4:30 AM Resulting Agency: [facility] Test ID: MGPL Released on: 04/20/2019 1:22 AM [id number] RENAL FUNCTION PANEL [#[id number]] Priority: Routine Class: ER Collect Specimen Source: Plasma Specimen Collected: 04/20/2019 4:30 AM Resulting Agency: [facility] Test ID: RENLP Released on: 04/20/2019 1:22 AM [id number] PHARMACY SALES REPRESENTATIVE - ED ONLY [#[id number]] Priority: STAT Class: Hospital Performed Standing Order Information Remainin g Occurrences:0/1 Interval:Continuous Last released:04/19/2019 Released orders : Karla Apr 19, 2019 9:51 AM by: NEETA COLEMAN Type: -> Bedside [id number] VITAL SIGNS [#[id number]] Priority: Routine Class: Hospital Performed Standing Order Information Remaining Occurrences:0/1 Interval:EVERY HOUR Last released:04/19/2019 Released o rders: Karla Apr 19, 2019 9:51 AM by: NEETA COLEMAN [id number] STRICT I & O [# [id number]] Priority: Routine Class: Hospital Performed Standing Order Information Remaining Occurre nces:0/1 Interval:CONTINUOUS Last released:04/19/2019 Released orders: Karla Apr 19 9:51 AM by: NEETA [id number] NEUROLOGIC STATUS ASSESSMENT [#[id number]] Prio rity: Routine Class: Hospital Performed Standing Order Information Remaining Occurrences:0/1 Interval:EVERY HOUR Last released:04/19/2019 Released orders: Karla Apr 19, 2019 9:51 AM by: NEETA COLEMAN [id number] PHARMACY SALES REPRESENTATIVE - ED ONLY [#[id number]] Priority: STAT Class: H ospital Performed Type: -> Bedside Released on: 04/19/2019 9:51 AM [id number] VITAL SIGNS [#[id number]] Priority: STAT Class: Hospital Performed Released on: 04/19/2019 9: 51 AM [id number] STRICT I & O [#[id number]] Priority: STAT Class: Hospital Performe d Released on: 04/19/2019 9:51 AM [id number] NEUROLOGIC STATUS ASSESSMENT [#[id number]] Prio rity: STAT Class: Hospital Performed Released on: 04/19/2019 9:51 AM [id number] CARDIAC MONITORING [#[id number]] Priority: STAT Class: Hospital Performed Standing Order Information Remaini ng Occurrences:0/1 Interval:Expires 24 Hours Last released:04/19/2019 Released orders : Sun Apr 19, 2019 1:32 PM by: MILI HILLS Type: -> Bedside [id number] CARDIAC MONITORING [#[id number]] Priority: STAT Class: Hospital Performed Type: -> Bedside Relea sed on: 04/19/2019 1:32 PM [id number] VITAL SIGNS PER UNIT ROUTINE [#[id number]] Priority: STAT Cla ss: Hospital Performed Standing Order Information Remaining Occurrences:0/1 Interval:CONTIN UOUS Last released:04/20/2019 Released orders: SatApr 20, 2019 8:37 AM by: JUAN SCHULZ Comment:More frequently if Indicated. [id number] BEDREST, COMPLETE [#[id number] ] Priority: STAT Class: Hospital Performed Standing Order Information Remaining Occurrences:0 /1 Interval:CONTINUOUS Last released:04/20/2019 Released orders: SatApr 20, 2019 8:37 AM by: RAYMOND SCHULZ [id number] NOTIFY PROVIDER: VITAL SIGNS CHANGES [#[id number]] Priority: STAT Class: Hospital Performed Standing Order Information Remaining Occurrences:0/1 Inter seema:CONTINUOUS Last released:04/20/2019 Released orders: SatApr 20, 2019 8:37 AM by: RAYMOND SEYMOUR Temp -> Greater than 101 F HR -> Greater than 120 Beats Per Minute or Less than 60 Dunia ts Per Minute RR -> Greater than 30 per minute or Less than 8 per minute SBP -> Greater than 180 mm H g or Less than 90 mm Hg O2 Sat -> Less than 90% UO -> Less than 120 ml in 4 hours [id number] APPLY/M AINTAIN SEQUENTIAL COMPRESSIO* [#[id number]] Priority: STAT Class: Hospital Performed Standing Order Inf ormation Remaining Occurrences:0/1 Interval:CONTINUOUS Last released:04/20/2019 Relea sed orders: SatApr 20, 2019 8:37 AM by: RAYMOND SCHULZ [id number] VITAL SIGNS PER UNIT ROUTINE [#[id number]] Priority: STAT Class: Hospital Performed Comment:More frequently if Indicated. Released on: 04/20/2019 8:37 AM [id number] BEDREST, COMPLETE [#[id number]] Priority: STA T Class: Hospital Performed Released on: 04/20/2019 8:37 AM [id number] NOTIFY PROVIDER: VITAL SIGNS SCOTT HIDALGO [#[id number]] Priority: STAT Class: Hospital Performed Temp -> Greater than 101 F HR -> Gr eater than 120 Beats Per Minute or Less than 60 Beats Per Minute RR -> Greater than 30 per minute or Less than 8 per minute SBP -> Greater than 180 mm Hg or Less than 90 mm Hg O2 Sat -> Less than 90% UO -> Less than 120 ml in 4 hours Released on: 04/20/2019 8:37 AM [id number] APPLY/MAINTAIN SEQUENTIAL COMPR ESSIO* [#[id number]] Priority: STAT Class: Hospital Performed Released on: 04/20/2019 8:37 AM [id number] STRICT I & O [#[id number]] Priority: STAT Class: Hospital Performed Stand ing Order Information Remaining Occurrences:0/1 Interval:CONTINUOUS Last released :04/20/2019 Released orders: SatApr 20, 2019 2:31 PM by: MILI HILLS [id number] STRICT I & O [#[id number]] Priority: STAT Class: Hospital Performed Released on: 04/20 2:31 PM [id number] XR CHEST PORT [#[id number]] Priority: STAT Class: H ospital Performed Standing Order Information Remaining Occurrences:0/1 Interval:ONE TI ME Last released:04/19/2019 Released orders: Sun Apr 19, 2019 9:51 AM by: JOY COLEMAN Reason for Exam -> Sepsis [id number] XR CHEST PORT [#[id number]] Priority: STA T Class: Hospital Performed Specimen Collected: 04/19/2019 10:42 AM Resulting Agency: [facility] Tasha t ID: [id number] Reason for Exam -> Sepsis Released on: 04/19/2019 9:[id number] CHEST A BD PELV WO CONT [#[id number]] Priority: Routine Class: Hospital Performed Standing Order Inf ormation Remaining Occurrences:0/1 Interval:ONE TIME Last released:04/20/2019 Release d orders: SatApr 20, 2019 1:37 PM by: MILI HILLS Reason for Exam -> reduced breath sounds right lung and LLQ tenderness and fullness Type of contrast. PLEASE NOTE: IV contr ast is NOT utilized with thisorder. -> Oral [id number] CT CHEST ABD PELV WO CONT [#[id number]] Priority: Routine Class: Hospital Performed Resulting Agency: [facility] Test ID: [id number] Reason for Exam -> reduced breath sounds right lung and LLQ tenderness and fullness Type of contrast. PLEASE NOTE: IV contrast is NOT utilized with thisorder. -> Oral Released on: 04/20/2019 1:37 PM [id number] EKG, 12 LEAD, INITIAL [#[id number]] Priority: STAT Class: Hospital Performe d Standing Order Information Remaining Occurrences:0/1 Interval:ONE TIME Last released: 04/19/2019 Released orders: [place] Apr 19, 2019 9:51 AM by: NEETA COLEMAN Reason for Exam: -> Sepsis [id number] EKG, 12 LEAD, INITIAL [#[id number]] Priority: STAT Class: Hospital Perfo rmed Specimen Collected: 04/19/2019 9:58 AM Resulting Agency: [facility] Test ID: [id number] Reason for E xam: -> Sepsis Released on: 04/19/2019 9:51 AM IVT11 SALINE LOCK IV [#[id number]] Priority: STAT Class: Hospital Performed Standing Order Information Remaining Occurrences:0 /1 Interval:ONE TIME Last released:04/19/2019 Released orders: [place] Apr 19, 2019 9:51 AM by: NEETA COLEMAN IVT11 SALINE LOCK IV [#[id number]] Priority: STAT Class: Hospital Performed Released on: 04/19/2019 9:51 AM SODIUM CHLORIDE 0.9 % IJ SYRG [ #[id number]] Priority: STAT Class: Normal ACETAMINOPHEN 650 MG RECTAL SUPPOSIT* [#[id number]] Priority: STAT Class: Normal PIPERACILLIN-TAZOBACTAM 3.375 GRAM I* [#[id number]] Priority: STAT Class: Normal Antibiotic Indications -> Sepsis of Unknown Etiology SODIUM CHLORIDE 0.9% BOLUS IV [#[id number]] Priority: STAT Class: Normal METHYLPREDNISOLONE (PF) 125 MG/2 ML * [#[id number]] Priority: STAT Class: Normal IPRATROPIUM-ALBUTEROL 2.5 MG-0.5 MG/* [# [id number]] Priority: STAT Class: Normal MODE OF DELIVERY -> IPPB VANCOMYCIN IVPB < 1.5 GM [#[id number]] Priority: STAT Class: Normal Antibiotic Indications -> Pneumonia (HAP ) IPRATROPIUM-ALBUTEROL 2.5 MG-0.5 MG/* [#[id number]] Priority: STAT Class: Normal MODE OF DELIVERY -> Nebulizer BUDESONIDE 0.5 MG/2 ML NEB SUSPENSION [#[id number]] Priority: STA T Class: Normal MODE OF DELIVERY - > Nebulizer PANTOPRAZOLE 40 MG + NS 10 ML IV [# [id number]] Priority: STAT Class: Normal PPI INDICATION -> Symptomatic GERD ACETYLCYSTEIN E 10 % (100 MG/ML) SOLN [#[id number]] Priority: STAT Class: Normal MODE OF DELIVERY -> Nebulizer CINACALCET 30 MG TAB [#[id number]] Priority: STAT Class: Normal ALPRAZOLAM 0.5 MG TAB [#[id number]] Priority: STAT Class: Normal HEPARIN (PORCINE) 5,000 UNIT/ML IJ S* [#[id number]] Priority: STAT Class: Normal LAMOTRIGINE 25 MG TAB [# [id number]] Priority: STAT Class: Normal DEXTROSE 5%-1/2 NORMAL SALINE IV [#[id number]] Pr iority: STAT Class: Normal PIPERACILLIN-TAZOBACTAM 3.375 GRAM I* [#[id number]] Priority: STAT Class: Normal Antibiotic Indications -> Pneumonia (HAP) HAP duration of therapy -> 7 days PIPERACILLIN-TAZOBACTAM 3.375 GRAM I* [#[id number]] Priority: STAT Class: Normal Antibiotic Indication s -> Pneumonia (HAP) HAP duration of therapy -> 7 days ACETAMINOPHEN 325 MG TABLET [# [id number]] Priority: STAT Class: Normal VANCOMYCIN IVPB < 1.5 GM [#[id number]] Pr iority: STAT Class: Normal Antibiotic Indications -> Bloodstream Infection [id number] NON-INVASIVE POSITIV E PRESSURE VENTI* [#[id number]] Priority: STAT Class: Hospital Performed Standing Order Information Remaining Occurrences:0/1 Interval:Continuous Last released:04/19/2019 Released o rders: Karla Apr 19, 2019 9:51 AM by: NEETA COLEMAN Type -> Adult/Pediatric Indication for u se -> Acute Have the absolute and relative contraindications for NIPPV beenconsidered (hyperlink above)? -> Yes Mode -> Bi-Level [id number] NON-INVASIVE POSITIVE PRESSURE VENTI* [#[id number]] Priority: STAT C lass: Hospital Performed Type -> Adult/Pediatric Indication for use -> Acute Have the absolute and relative contraindications for NIPPV beenconsidered (hyperlink above)? -> Yes Mode -> Bi-Level Released on: 04/19/2019 9:51 AM [id number] RT--BIPAP [#[id number]] Priority: Rout ine Class: Hospital Performed Standing Order Information Remaining Occurrences:0/1 Inter seema:CONTINUOUS Last released:04/19/2019 Released orders: Karla Apr 19, 2019 2:45 PM by: KRYSTIAN CASAS FIO2 -> 70% [id number] RT--BIPAP [#[id number]] Priority: Routine Class: Hospital Performed FIO2 -> 70% Released on: 04/19/2019 2:45 PM [id number] IP CONSULT TO PRIMARY CARE PROVIDER [#[id number]] Priority: STAT Class: Hospital Performed Standing Order Information Remaining Occurrences:0/1 Interval:ONE TIME Last released:04/19/2019 Released orders : Karla Apr 19, 2019 11:28 AM by: NEETA COLEMAN Reason for Consult: -> admit patient Did y ou call or speak to the consulting provider? -> No Consult To -> Dr Hills Schedule When? -> TODAY [id number] IP CONSULT TO PRIMARY CARE PROVIDER [#[id number]] Priority: STAT Class: Hospital Performe d Comment:aware Reason for Consult: -> admit patient Did you call or speak to the consulting prov ider? -> No Consult To -> Dr Hills Schedule When? -> TODAY Released on: 04/19/2019 11:28 AM CON5 IP CONSULT TO INFECTIOUS DISEASES [#[id number]] Priority: Routine Class: Hospital Performed St anding Order Information Remaining Occurrences:0/1 Interval:ONE TIME Last released:0 04/19/2019 Released orders: Karla Apr 19, 2019 1:33 PM by: MILI HILLS Reason for Cons ult: -> pneumonia / rule out sepsis Did you call or speak to the consulting provider? -> No Consult To -> Dr Dudley Schedule When? -> TODAY CON5 IP CONSULT TO INFECTIOUS DISEASES [#[id number]] Priority: Routine Class: Hospital Performed Comment:ID: Dr Dudley [facility] aware of routine consult Reason for Consult: -> pneumonia / rule out sepsis Did you call or speak to the consulting provider? -> No Consult To -> Dr Dudley Schedule When? -> TODAY Released on: 04/19/2019 1:33 PM [id number] INITIA L PHYSICIAN ORDER: INPATIENT [#[id number]] Priority: Routine Class: ADT Pend Transfer Standing Ord er Information Remaining Occurrences:0 Interval:ONE TIME Last released:04/19/2019 Released orders: Karla Apr 19, 2019 1:32 PM by: MILI IHLLS Status: -> INPATIENT I npatient Hospitalization Certified Necessary for the Following Reasons -> 3- . P- a- t- i- e- n- t r- e- c- e - i- v- i- n- g t- r- e- a- t- m- e- n- t t- h- a- t c- a- n o- n- l- y b- e p- r- o- v- i- d- e- d i- n a- n i- n- p- a- t- i- e- n- t s- e- t- t- i- n- g (- f - u- r- t- h- e- r c- l- a- r- i- f- i- c- a- t- i- o- n i- n H- &- P d- o- c- u- m- e- n- t- a- t- i- o- n- ) Admitting Diagnosis -> Acute hypoxemic respiratory failure (HCC ) -> Acute on chronic respiratory failure with hypoxia and hypercapnia (HCC) -> C OPD with acute exacerbation (HCC) -> Pneumonia Admitting Physician -> MILI HILLS Attend ing Physician -> MILI HILLS Estimated Length of Stay -> 5-7 Midnights Discharge Plan: -> Extend ed Care Facility (e.g. Adult Home, Detention, etc.) [id number] INITIAL PHYSICIAN ORDER: INPATIENT [#[id number]] Priority: Routine Class: ADT Pend Transfer Status: -> INPATIENT Inpatient Hospitalization Certified Necessary for the Following Reasons -> 3- . P- a- t- i- e- n- t r- e- c- e- i- v- i- n- g t- r- e- a- t- m- e- n- t t- h- a- t c- a- n o- n- l- y b- e p- r- o- v- i- d- e- d i- n a- n i- n- p- a- t- i- e- n- t s- e- t- t- i- n- g (- f- u- r- t- h- e- r c- l- a- r- i- f- i- c- a- t- i- o- n i- n H- &- P d- o- c- u- m- e- n- t- a- t- i- o- n- ) Admitting Diagnosis -> Acute hypoxemic respiratory failure (HCC) -> Acute on chronic respiratory failure with hypoxia and hypercapnia (HCC) -> COPD with acute exacerbation (HCC) -> Pneumonia Admitting Physician -> MILI HILLS Attending Physician -> MILI HILLS Estimated Length of Stay -> 5-7 Midnights Discharge Jocelyn n: -> Extended Care Facility (e.g. Adult Home, Detention, etc.) Released on: 020 1:32 PM CON54 IP CONSULT TO PULMONOLOGY [#[id number]] Priority: Routine Class : Hospital Performed Standing Order Information Remaining Occurrences:0 Interval:ONE TI ME Last released:04/19/2019 Released orders: Karla Apr 19, 2019 1:33 PM by: PATRICIO HILLS Reason for Consult: -> Acute respiratory failure Did you call or speak to the consulting prov ider? -> Yes CON54 IP CONSULT TO PULMONOLOGY [#[id number]] Priority: Routine Class : Hospital Performed Reason for Consult: -> Acute respiratory failure Did you call or speak to th e consulting provider? -> Yes Released on: 04/19/2019 1:33 PM COD2 FULL CODE [#[id number]] Priority: STAT Class: Hospital Performed Standing Order Information Remainin g Occurrences:0/1 Interval:CONTINUOUS Last released:04/20/2019 Released orders : SatApr 20, 2019 8:37 AM by: RAYMOND SCHULZ COD2 FULL CODE [# [id number]] Priority: STAT Class: Hospital Performed Released on: 04/20/2019 8:37 AM [id number] IP CON SULT TO WOUND CARE [#[id number]] Priority: STAT Class: Hospital Performed Standing Order Inf ormation Remaining Occurrences:0/1 Interval:ONE TIME Last released:04/20/2019 Release d orders: SatApr 20, 2019 1:09 PM by: SARAI EPSTEIN Reason for Consult: -> ? dressing to use [id number] IP CONSULT TO WOUND CARE [#[id number]] Priority: STAT Class: Hospital Performe d Comment:Lucien is aware Reason for Consult: -> ? dressing to use Released on: 04/20/2019 1:09 PM [id number] LOZANO CATHETER, INSERTION [#[id number]] Priority: STAT Class: Hospital Performe d Standing Order Information Remaining Occurrences:0/1 Interval:ONE TIME Last released: 04/20/2019 Released orders: SatApr 20, 2019 2:31 PM by: MILI HILLS Reason for Inse rtion: -> Accurate measurement of urinary output Follow Nurse Driven Lozano Removal Protocol? -> Yes N [id number] LOZANO CATHETER, INSERTION [#[id number]] Priority: STAT Class: Hospital Performe d Reason for Insertion: -> Accurate measurement of urinary output Follow Nurse Driven Lozano Removal P rotocol? -> Yes Released on: 04/20/2019 2:31 Evelio Dickey MR#: [id number]* Rm: 344-01Ht: 5' 2" Wt: 103 lb Code: Full Code Iso:Diagnosis:Acute hypoxemic respirator y failure (HCC) [J96.01]Allergies: No Known Allergies -------- Current as of: 04/20/192106 GI=Given HE=Held IC= IV Completed NB=New Bag --albuterol-ipratropium (DUO-NEB) 2.5 MG-0.5 MG/3 ML #[id number] Admin Amount: 3 mL Ordered Dose: 3 mL Route: Nebulization Freq: NOW Start Date: 11/07/18 No administration times (back 96 hours, ahead 96 hours). ------methylPREDNISolone (PF) (Solu-MEDROL) injection 125 mg #[id number] Admin Amount: 2 mL = 125 mg of 125 mg/2 mL Ordered Dose: 125 mg Route: Int raVENous Freq: NOW Start Date: 11/07/18 No administration times (back 96 hours, ahe ad 96 hours). ------cefTRIAXone (ROCEPHIN) 1 g in 0.9% sodium chloride (MBP/ADV) 50 m L M*#[id number] Admin Amount: 1 g Ordered Dose: 1 g Route: IntraVENous Freq: NOW Start Date: 11/07/18 Rate: 100 mL/hr Duration: 30 Minutes No administration times (back 96 hours, ahead 96 hours). ------azithromycin (ZITHROMAX) 500 mg in NS 250 mL #[id number] Admin Amount: 250 mL = 500 mg of 500 mg/250 mL Ordered Dose: 500 mg Ro manzanita: IntraVENous Freq: NOW Start Date: 11/07/18 Rate: 250 mL/hr Dura tion: 60 Minutes No administration times (back 96 hours, ahead 96 hours). ------iopamidol (ISOVUE-370) 76 % injection 100 mL #[id number] Admin Amount: 100 mL Ordered Dose: 100 mL Route: IntraVENous Freq: RAD ONC E Start Date: 11/07/18 No administration times (back 96 hours, ahead 96 hours). ------sodium chloride 0.9 % bolus infusion 500 mL #[id number] Admin Amount: 500 mL Ordered Dose: 500 mL Route: IntraVENous Freq: ONCE Start Date: 11/08/18 Rate: 666.7 mL/hr Duration: 45 Minutes No administr ation times (back 96 hours, ahead 96 hours). ------ALPRAZolam (XANAX) tablet 0.25 mg #[id number] Admin Amount: 1 Tab (1 x 0.25 mg Tab) Ordered Dose: 0.25 mg Route: Ora l Freq: DAILY Start Date: 11/08/18 No administration times (back 96 hours, ahe ad 96 hours).Evelio Carlin MR#: [id number] * Rm: 344-01Ht: 5' 2" Wt: 1 03 lb Code: Full Code Iso:Diagnosis:Acute hypoxemic respiratory failure (HCC) [J96.01]Allerg ies: No Known Allergies -------- Current as of: 04/20/192106 GI=Given HE=Held IC= IV Completed NB=New Bag --cefTRIAXone (ROCEPHIN) 1 g in 0.9% sodium chloride (MBP/ADV) 50 mL M*#[id number] Admin Amount: 1 g Ordered Dose: 1 g Route: IntraVENous Freq: EVERY 24 HOURS Start Date: 11/08/18 Rate: 100 mL/hr Duration: 30 Minutes No administration times (back 96 hours, ahead 96 hours). ------azithromycin (ZITHROMAX) 500 mg in 0.9% sodium chloride 250 mL IV PB #[id number] Admin Amount: 500 mg Ordered Dose: 500 mg Route: IntraVENous Freq: EVERY 24 HOURS Start Date: 11/08/18 Rate: 250 mL/hr Duration: 60 Minutes No administrati on times (back 96 hours, ahead 96 hours). ------LORazepam (ATIVAN) injection 0.5 mg #[id number] Admin Amount: 0.25 mL = 0.5 mg of 2 mg/mL Ordered Dose: 0.5 mg Ro manzanita: IntraVENous Freq: ONCE Start Date: 11/10/18 No administration times (back 96 hours, ahead 96 hours). ------LORazepam (ATIVAN) injection 2 mg #[id number] Admin Amount: 1 mL = 2 mg of 2 mg/mL Ordered Dose: 2 mg Route: Int raVENous Freq: ONCE Start Date: 11/11/18 No administration times (back 96 hours, ahe ad 96 hours). ------LORazepam (ATIVAN) injection 0.5 mg #[id number] Admin Amount: 0.25 mL = 0.5 mg of 2 mg/mL Ordered Dose: 0.5 mg Ro manzanita: IntraVENous Freq: ONCE Start Date: 11/11/18 No administration times (back 96 hours, ahead 96 hours). ------acetaminophen (OFIRMEV) infusion 1,000 mg #[id number] Admin Amount: 100 mL = 1,000 mg of 1,000 mg/100 mL Ordered Dose: 1,000 mg Ro manzanita: IntraVENous Freq: EVERY 6 HOURS Start Date: 11/17/18 Rate: 400 mL/hr Durat ion: 15 Minutes No administration times (back 96 hours, ahead 96 hours). ------HYDROmorphone (DILAUDID) syringe 0.5 mg #[id number] Admin Amount: 0.5 mL = 0.5 mg of 0.5 mg/0.5 mL Ordered Dose: 0.5 mg Ro manzanita: IntraVENous Freq: EVERY 6 HOURS NEEDED Start Date: 11/17/18 No administration times (back 96 hours, ahead 96 hours).Evelio Carlin MR#: [id number] * Rm: 344-01Ht: 5' 2" Wt: 103 lb Code: Full Code Iso:Diagnosis:Acute hypoxemic respiratory failure (HCC) [J96.]Allerg ies: No Known Allergies -------- Current as of: 04/20/192106 GI=Given HE=Held IC= IV Completed NB=New Bag --acetaminophen (OFIRMEV) infusion 1,000 mg #[id number] Admin Amount: 100 mL = 1,000 mg of 1,000 mg/100 mL Ordered Dose: 1,000 mg Ro manzanita: IntraVENous Freq: EVERY 6 HOURS Start Date: 11/18/18 Rate: 400 mL/hr Durat ion: 15 Minutes No administration times (back 96 hours, ahead 96 hours). ------piperacillin-tazobactam (ZOSYN) 3.375 g in 0.9% sodium chloride (MBP*#[id number] Admin Amount: 3.375 g Ordered Dose: 3.375 g Route: IntraVENous Freq: EVERY 8 HOURS Start Date: 11/18/18 Rate: 25 mL/hr Duration: 240 Minutes No administra tion times (back 96 hours, ahead 96 hours). ------potassium chloride 10 mEq in 100 ml IVPB #[id number] Admin Amount: 100 mL = 10 mEq of 10 mEq/100 mL Ordered Dose: 10 mEq Ro manzanita: IntraVENous Freq: EVERY 1 HOUR Start Date: 11/19/18 Rate: 100 mL/hr Durat ion: 60 Minutes No administration times (back 96 hours, ahead 96 hours). ------diatrizoate tiffani-diatrizoat sod (RUTHYGASTROVIEW,GASTRO GRAFIN) 66-10 % *#[id number] Admin Amount: 30 mL Ordered Dose: 30 mL Route: Oral Freq: RAD ONCE Start Date: 11/19/18 No administration times (back 96 hours, ahead 96 hours). ------acetaminophen (OFIRMEV) infusion 1,000 mg #[id number] Admin Amount: 100 mL = 1,000 mg of 1,000 mg/100 mL Ordered Dose: 1,000 mg Ro manzanita: IntraVENous Freq: EVERY 6 HOURS Start Date: 11/21/18 Rate: 400 mL/hr Durat ion: 15 Minutes No administration times (back 96 hours, ahead 96 hours). ------acetaminophen (OFIRMEV) infusion 1,000 mg #[id number] Admin Amount: 100 mL = 1,000 mg of 1,000 mg/100 mL Ordered Dose: 1,000 mg Ro manzanita: IntraVENous Freq: EVERY 6 HOURS Start Date: 11/22/18 Rate: 400 mL/hr Dura tion: 15 Minutes No administration times (back 96 hours, ahead 96 hours). ------LORazepam (ATIVAN) tablet 0.5 mg #[id number] Admin Amount: 1 Tab (1 x 0.5 mg Tab) Ordered Dose: 0.5 mg Route: Per G Tube Freq: EVERY BEDTIME Start Date: 11/23/18 No administration times (back 96 hours, ahe ad 96 hours).Evelio Carlin MR#: [id number] * Rm: 344-01Ht: 5' 2" Wt: 1 03 lb Code: Full Code Iso:Diagnosis:Acute hypoxemic respiratory failure (HCC) [J96.01]Allerg ies: No Known Allergies -------- Current as of: 04/20/192106 GI=Given HE=Held IC= IV Completed NB=New Bag --vancomycin (VANCOCIN) 1,250 mg in 0.9% sodium chloride 250 mL IVPB #[id number] Admin Amount: 1,250 mg Ordered Dose: 1,250 mg Route: IntraVENous Freq: EVERY 12 H OURS Start Date: 11/24/18 Rate: 125 mL/hr Duration: 120 Minutes No administrati on times (back 96 hours, ahead 96 hours). ------potassium chloride (KLOR-CON) packet for solution 20 mEq #[id number] Admin Amount: 1 Packet (1 x 20 mEq Packet) Ordered Dose: 20 mEq Ro manzanita: Oral Freq: 2 TIMES DAILY WITH MEALS Start Date: 11/25/18 No administration times (back 96 hours, ahe ad 96 hours). ------piperacillin-tazobactam (ZOSYN) 3.375 g in 0.9% sodium chloride (MBP*#[id number] Admin Amount: 3.375 g Ordered Dose: 3.375 g Route: IntraVENous Freq: NOW Start Date: 12/12/18 Rate: 200 mL/hr Duration: 30 Minutes No administra tion times (back 96 hours, ahead 96 hours). ------albuterol-ipratropium (DUO-NEB) 2.5 MG-0.5 MG/3 ML #[id number] Admin Amount: 3 mL Ordered Dose: 3 mL Route: Nebulization Freq: NOW Start Date: 12/12/18 No administration times (back 96 hours, ahead 96 hours). ------methylPREDNISolone (PF) (Solu-MEDROL) injection 125 mg #[id number] Admin Amount: 2 mL = 125 mg of 125 mg/2 mL Ordered Dose: 125 mg Route: Int raVENous Freq: NOW Start Date: 12/12/18 No administration times (back 96 hours, ahe ad 96 hours). ------albuterol-ipratropium (DUO-NEB) 2.5 MG-0.5 MG/3 ML #[id number] Admin Amount: 3 mL Ordered Dose: 3 mL Route: Nebulization Freq: NOW Start Date: 12/12/18 No administration times (back 96 hours, ahead 96 hours). ------albuterol-ipratropium (DUO-NEB) 2.5 MG-0.5 MG/3 ML #[id number] Admin Amount: 3 mL Ordered Dose: 3 mL Route: Nebulization Freq: NOW Start Date: 12/12/18 No administration times (back 96 hours, ahead 96 hours).Ivelisse Carlin MR#: [id number] * Rm: 344-01Ht: 5' 2" Wt: 103 lb Code: Full Code Iso:Diagnosis:Acute hypoxemic respiratory failure (HCC) [J96.01]Allergies: No Known Allergies -------- Current as of: 04/20/192106 GI=Given HE=Held IC= IV Completed NB=New Bag -- Followed by [facility] (Order count: 2)sodium chloride 0.9 % jeff aspen infusion 1,000 mL #[id number] Admin Amount: 1,000 mL Ordered Dose: 1,000 mL Route: IntraVENous Freq: ONCE Start Date: 12/12/18 No administration times ( back 96 hours, ahead 96 hours). - Followed by - - - - - - - - - - - - - - - - - - - - - - - - - - - - - - - -s odium chloride 0.9 % bolus infusion 593 mL #[id number] Admin Amount: 593 mL Ordere d Dose: 593 mL Route: IntraVENous Freq: ONCE Start Date: 12/12/18 No ad ministration times (back 96 hours, ahead 96 hours). ------iopamidol (ISOVUE-370) 76 % injection 125 mL #[id number] Admin Amount: 125 mL Ordered Dose: 125 mL Route: IntraVENous Freq: RAD ONC E Start Date: 12/17/18 No administration times (back 96 hours, ahead 96 hours). ------lidocaine (XYLOCAINE) 20 mg/mL (2 %) injection 100 mg #[id number] Admin Amount: 5 mL = 100 mg of 2,000 mg/100 mL Ordered Dose: 5 mL Ro manzanita: IntraDERMal Freq: ONCE Start Date: 12/19/18 No administration times (back 96 hours, ahead 96 hours). ------oxyCODONE-acetaminophen (PERCOCET) 5-325 mg per tablet 1 Tab #[id number] Admin Amount: 1 Tab Ordered Dose: 1 Tab Route: Oral Freq: EVERY 8 HOURS NEEDED Start Date: 12/19/18 No administration times (back 96 hours, ahead 96 hours). ------furosemide (LASIX) injection 20 mg #[id number] Admin Amount: 2 mL = 20 mg of 10 mg/mL Ordered Dose: 20 mg Ro manzanita: IntraVENous Freq: ONCE Start Date: 12/26/18 No administration times (back 96 hours, ahead 96 hours). ------furosemide (LASIX) injection 20 mg #[id number] Admin Amount: 2 mL = 20 mg of 10 mg/mL Ordered Dose: 20 mg Route: Int raVENous Freq: ONCE Start Date: 12/29/18 No administration times (back 96 hours, [facility] ad 96 hours).Evelio Carlin MR#: [id number] * Rm: 344-01Ht: 5' 2" Wt: 1 03 lb Code: Full Code Iso:Diagnosis:Acute hypoxemic respiratory failure (HCC) [J96.01]Allerg ies: No Known Allergies -------- Current as of: 04/20/192106 GI=Given HE=Held IC= IV Completed NB=New Bag --albuterol-ipratropium (DUO-NEB) 2.5 MG-0.5 MG/3 ML #[id number] Admin Amount: 3 mL Ordered Dose: 3 mL Route: Nebulization Freq: NOW Start Date: 01/10/19 No administration times (back 96 hours, ahead 96 hours). ------methylPREDNISolone (PF) (Solu-MEDROL) injection 125 mg #[id number] Admin Amount: 2 mL = 125 mg of 125 mg/2 mL Ordered Dose: 125 mg Route: Int raVENous Freq: NOW Start Date: 01/10/19 No administration times (back 96 hours, [facility] ad 96 hours). ------albuterol-ipratropium (DUO-NEB) 2.5 MG-0.5 MG/3 ML #[id number] Admin Amount: 3 mL Ordered Dose: 3 mL Route: Nebulization Freq: NOW Start Date: 01/10/19 No administration times (back 96 hours, ahead 96 hours). ------acetaminophen (TYLENOL) tablet 650 mg #[id number] Admin Amount: 2 Tab (2 x 325 mg Tab) Ordered Dose: 650 mg Route: Per G Tub e Freq: NOW Start Date: 01/10/19 No administration times (back 96 hours, e ad 96 hours). ------piperacillin-tazobactam (ZOSYN) injection 3.375 g #[id number] Admin Amount: 3.375 g Ordered Dose: 3.375 g Route: IntraVENous Freq: NOW Start Date: 01/10/19 No administration times (back 96 hours, ahead 96 hours). ------vancomycin (VANCOCIN) 1,000 mg in 0.9% sodium chloride 250 mL IVPB #[id number] Admin Amount: 1,000 mg Ordered Dose: 1,000 mg Route: IntraVENous Freq: ONCE Start Date: 01/10/19 Rate: 125 mL/hr Duration: 120 Minutes No admini stration times (back 96 hours, ahead 96 hours). ------ Followed by [facility] (Order count: 2)sodium chloride 0. 9 % bolus infusion 1,000 mL #[id number] Admin Amount: 1,000 mL Ordered Dose: 1,000 mL Route: IntraVENous Freq: ONCE Start Date: 01/10/19 No administration t imes (back 96 hours, ahead 96 hours).Evelio Carlin MR#: [id number] * Rm: 34 07-14Ht: 5' 2" Wt: 103 lb Code: Full Code Iso:Diagnosis:Acute hypoxemic respirator y failure (HCC) [J96.01]Allergies: No Known Allergies -------- Current as of: 04/20/192106 GI=Given HE=Held IC= IV Completed NB=New Bag - Followed by - - - - - - - - - - - - - - - - - - - - - - - - - - - - - - - -sodium chloride 0.9 % bolus infusion 551 mL #[id number] Admin Amount: 551 mL Ordere d Dose: 551 mL Route: IntraVENous Freq: ONCE Start Date: 01/10/19 No ad ministration times (back 96 hours, ahead 96 hours). ------0.9% sodium chloride (MBP/ADV) infusion #[id number] Ordered Dose: Route: Freq: Start D ate: 01/10/19 No administration times (back 96 hours, ahead 96 hours). ------influenza vaccine (65 yrs+)(PF) (FLUZONE HIGH-DOSE ) injectio*#[id number] Admin Amount: 0.5 mL Ordered Dose: 0.5 mL Route: IntraMUSCular Freq: PRIOR TO DISCHARGE Start Date: 01/10/19 No administration times (back 96 hours, ahead 96 hours). ------piperacillin-tazobactam (ZOSYN) 3.375 g in 0.9% sodium chloride (MBP*#[id number] Admin Amount: 3.375 g Ordered Dose: 3.375 g Route: IntraVENous Freq: EVERY 8 HOURS Start Date: 01/10/19 Rate: 25 mL/hr Duration: 240 Minutes No administr ation times (back 96 hours, ahead 96 hours). ------potassium, sodium phosphates (NEUTRA-PHOS) packet 1 Packet #[id number] Admin Amount: 1 Packet Ordered Dose: 1 Packet Route: Per G Tube Freq: 4 TIMES DAILY Start Date: 01/12/19 No administration times (back 96 hours, ahead 96 hours). ------iopamidol (ISOVUE 300) 61 % contrast injection 100 mL #[id number] Admin Amount: 100 mL Ordered Dose: 100 mL Route: IntraVENous Freq: RAD ONC E Start Date: 01/15/19 No administration times (back 96 hours, ahead 96 hours). ------sodium phosphate 15 mmol in 0.9% sodium chloride 250 mL infusion #[id number] Ordered Dose: Route: IntraVENous Freq: ONCE Start Date: 01/20/19 Rate: 63.8 mL/hr Duration: 4 Hours No administration patria es (back 96 hours, ahead 96 hours).Evelio Carlin MR#: [id number] * Rm: 34 07-14Ht: 5' 2" Wt: 103 lb Code: Full Code Iso:Diagnosis:Acute hypoxemic respirator y failure ([facility]) [J96.01]Allergies: No Known Allergies -------- Current as of: 04/20/192106 GI=Given HE=Held IC= IV Completed NB=New Bag --acetaZOLAMIDE SR (DIAMOX) capsule 500 mg #[id number] Admin Amount: 1 Cap (1 x 500 mg Cap) Ordered Dose: 500 mg Route: Oral Freq: O NCE Start Date: 01/23/19 No administration times (back 96 hours, ahead 96 hours). ------albuterol (PROVENTIL VENTOLIN) nebulizer solution 2.5 mg #[id number] Admin Amount: 3 mL = 2.5 mg of 2.5 mg/3 mL Ordered Dose: 2.5 mg Ro manzanita: Nebulization Freq: NOW Start Date: 02/08/19 No administration times (back 96 hours, ahead 96 hours). ------albuterol (PROVENTIL VENTOLIN) nebulizer solution 2.5 mg #[id number] Admin Amount: 3 mL = 2.5 mg of 2.5 mg/3 mL Ordered Dose: 2.5 mg Ro manzanita: Nebulization Freq: NOW Start Date: 02/08/19 No administration times (back 96 hours, ahead 96 hours). ------ Followed by Luis Armando Magana (Order count: 2)sodium chloride 0. 9 % bolus infusion 1,000 mL #[id number] Admin Amount: 1,000 mL Ordered Dose: 1,000 mL Route: IntraVENous Freq: ONCE Start Date: 02/08/19 No administration times (back 96 hours, ahead 96 hours). - Followed by - - - - - - - - - - - - - - - - - - - - - - - - - - - - - - - -sodium chloride 0.9 % bolus infusion 701 mL #[id number] Admin Amount: 701 mL O rdered Dose: 701 mL Route: IntraVENous Freq: ONCE Start Date: 02/08/19 No administration times (back 96 hours, ahead 96 hours). ------cefepime (MAXIPIME) 2 g in 0.9% sodium chloride (MBP/ADV) 100 mL MBP #[id number] Admin Amount: 2 g Ordered Dose: 2 g Route: IntraVENous Freq: NOW Start Date: 02/08/19 Rate: 200 mL/hr Duration: 30 Minutes No administratio n times (back 96 hours, ahead 96 hours). ------vancomycin (VANCOCIN) 1,000 mg in 0.9% sodium chloride 250 mL IVPB #[id number] Admin Amount: 1,000 mg Ordered Dose: 1,000 mg Route: IntraVENous Freq: ONCE Start Date: 02/08/19 Rate: 125 mL/hr Duration: 120 Minutes No admin istration times (back 96 hours, ahead 96 hours).Evelio Carlin MR#: [id number]* Rm: 344-01Ht: 5' 2" Wt: 103 lb Code: Full Code Iso:Diagnosis:Acute hypoxemic respirator y failure (HCC) [J96.01]Allergies: No Known Allergies -------- Current as of: 04/20/192106 GI=Given HE=Held IC= IV Completed NB=New Bag --ALPRAZolam (XANAX) tablet 0.25 mg #[id number] Admin Amount: 1 Tab (1 x 0.25 mg Tab) Ordered Dose: 0.25 mg Route: Per G Tub e Freq: 4 TIMES DAILY NEEDED Start Date: 02/08/19 No administration times (back 96 hours, ahe ad 96 hours). ------cefepime (MAXIPIME) 2 g in 0.9% sodium chloride (MBP/ADV) 100 mL MBP #[id number] Admin Amount: 2 g Ordered Dose: 2 g Route: IntraVENous Freq: EVERY 8 TAMMY RS Start Date: 02/09/19 Rate: 200 mL/hr Duration: 30 Minutes No administratio n times (back 96 hours, ahead 96 hours). ------ALPRAZolam (XANAX) tablet 0.25 mg #[id number] Admin Amount: 1 Tab (1 x 0.25 mg Tab) Ordered Dose: 0.25 mg Route: Per G Tube Freq: 4 TIMES DAILY NEEDED Start Date: 02/14/19 No administration times (back 96 hours, ahe ad 96 hours). ------propofol (DIPRIVAN) 10 mg/mL injection #[id number] Ordered Dose: Route: Freq: Start Date: No administration times (back 96 hours, ahead 96 hours). ------midazolam (PF) (VERSED) 1 mg/mL injection #[id number] Ordered Dose: Route: Freq: Start Date: 02/16/19 No administration times (back 96 hours, ahead 96 hours). ------albuterol (PROVENTIL VENTOLIN) 2.5 mg /3 mL (0.083 %) nebuliz er river*#[id number] Ordered Dose: Route: Freq: Start D ate: 02/16/19 No administration times (back 96 hours, ahead 96 hours). ------albuterol (PROVENTIL VENTOLIN) nebulizer solution 2.5 mg #[id number] Admin Amount: 3 mL = 2.5 mg of 2.5 mg/3 mL Ordered Dose: 2.5 mg Ro manzanita: Inhalation Freq: NEEDED Start Date: 02/16/19 No administration times (back 96 hours, ahead 96 hours). ------ePHEDrine (MISTOLE) 50 mg/mL injection #[id number] Ordered Dose: Route: Freq: Start Date: No administration times (back 96 hours, ahead 96 hours).Evelio Carlin MR#: [id number] * Rm: 344-01Ht: 5' 2" Wt: 103 lb Code: Full Code Iso:Diagnosis:A cute hypoxemic respiratory failure (HCC) [J96.01]Allergies: No Known Allergies -------- Current as of: 04/20/192106 GI=Given HE=Held IC= IV Completed NB=New Bag --propofol (DIPRIVAN) 10 mg/mL injection #[id number] Ordered Dose: Route: Freq: Start Date: 02/17/19 No administration times (back 96 hours, ahead 96 hours). ------fentaNYL citrate (PF) 50 mcg/mL injection #[id number] Ordered Dose: Route: Freq: Start Date: 02/17 No administration times (back 96 hours, ahead 96 hours). ------midazolam (PF) (VERSED) 1 mg/mL injection #[id number] Ordered Dose: Route: Freq: Start Date: 02/17/19 No administration times (back 96 hours, ahead 96 hours). ------acetaminophen (TYLENOL) tablet 975 mg #[id number] Admin Amount: 3 Tab (3 x 325 mg Tab) Ordered Dose: 975 mg Route: Oral Dg q: NOW Start Date: 03/11/19 No administration times (back 96 hours, ahead 96 hours). ------vancomycin (VANCOCIN) 1,000 mg in 0.9% sodium chloride 250 mL IVPB #[id number] Admin Amount: 1,000 mg Ordered Dose: 1,000 mg Route: IntraVENous Freq: ONCE Start Date: 03/11/19 Rate: 125 mL/hr Duration: 120 Minutes No admin istration times (back 96 hours, ahead 96 hours). ------sodium chloride 0.9 % bolus infusion 1,000 mL #[id number] Admin Amount: 1,000 mL Ordered Dose: 1,000 mL Route: IntraVENous Freq: ONCE Start Date: 03/25/19 Rate: 1,000 mL/hr Duration: 60 Minutes No admini stration times (back 96 hours, ahead 96 hours). ------sodium chloride 0.9 % bolus infusion 1,000 mL #[id number] Admin Amount: 1,000 mL Ordered Dose: 1,000 mL Route: IntraVENous Freq: ONCE Start Date: 03/25/19 Rate: 1,000 mL/hr Duration: 60 Minutes No admini stration times (back 96 hours, ahead 96 hours). ------cefepime (MAXIPIME) 1 g in 0.9% sodium chloride (MBP/ADV) 50 mL MBP #[id number] Admin Amount: 1 g Ordered Dose: 1 g Route: IntraVENous Freq: ONCE Start Date: 03/25/19 Rate: 100 mL/hr Duration: 30 Minutes No administratio n times (back 96 hours, ahead 96 hours).Evelio Carlin MR#: [id number] * Rm: 344-01Ht: 5' 2" Wt: 103 lb Code: Full Code Iso:Diagnosis:Acute hypoxemic respirator y failure ([facility]) [J96.01]Allergies: No Known Allergies -------- Current as of: 04/20/192106 GI=Given HE=Held IC= IV Completed NB=New Bag --vancomycin (VANCOCIN) 1,000 mg in 0.9% sodium chloride 250 mL IVPB #[id number] Admin Amount: 1,000 mg Ordered Dose: 1,000 mg Route: IntraVENous Freq: ONCE Start Date: 03/25/19 Rate: 125 mL/hr Duration: 120 Minutes No administrat ion times (back 96 hours, ahead 96 hours). ------cefepime (MAXIPIME) 1 g in 0.9% sodium chloride (MBP/ADV) 50 mL [facility] #[id number] Admin Amount: 1 g Ordered Dose: 1 g Route: IntraVENous Freq: EVERY 8 TAMMY RS Start Date: 03/25/19 Rate: 100 mL/hr Duration: 30 Minutes No administratio n times (back 96 hours, ahead 96 hours). ------vancomycin (VANCOCIN) 1,000 mg in 0.9% sodium chloride 250 mL IVPB #[id number] Admin Amount: 1,000 mg Ordered Dose: 1,000 mg Route: IntraVENous Freq: EVER Y 12 HOURS Start Date: 03/25/19 Rate: 125 mL/hr Duration: 120 Minutes No admin istration times (back 96 hours, ahead 96 hours). ------potassium, sodium phosphates (NEUTRA-PHOS) packet 2 Packet #[id number] Admin Amount: 2 Packet Ordered Dose: 2 Packet Route: Per G Tube Freq: 2 TIMES DAILY Start Date: 03/27/19 No administration times (back 96 hours, ahead 96 hours). ------propofol (DIPRIVAN) 10 mg/mL injection #[id number] Ordered Dose: Route: Freq: Start Date: No administration times (back 96 hours, ahead 96 hours). ------diatrizoate tiffani-diatrizoat sod ([place],GASTRO GRAFIN) 66-10 % *#[id number] Admin Amount: 30 mL Ordered Dose: 30 mL Route: Oral Freq: RAD ONCE Start Date: 04/04/19 No administration times (back 96 hours, ahead 96 hours). ------fentaNYL citrate (PF) 50 mcg/mL injection #[id number] Ordered Dose: Route: Freq: Start Date: No administration times (back 96 hours, ahead 96 hours).Evelio Carlin MR#: [id number] ct#: [id number]* Rm: 344-01Ht: 5' 2" Wt: 103 lb Code: Full Code Iso:Diagnosis:Acute hypox emic respiratory failure (HCC) [J96.01]Allergies: No Known Allergies -------- Current as of: 04/20/192106 GI=Given HE=Held IC= IV Completed NB=New Bag --sodium chloride (NS) flush 5-10 mL #[id number] Admin Amount: 5-10 mL Ordered Dose: 5-10 mL Route: IntraVENous Freq: NEEDED Start Date: 04/19/19 No administration times (back 96 hours, ahead 96 hours). ------acetaminophen (TYLENOL) suppository 650 mg #[id number] Admin Amount: 1 Suppository (1 x 650 mg Suppository) Ordered Dose: 650 mg Ro manzanita: Rectal Freq: NOW Start Date: 04/19/19 Administration times (back 96 hours, ahe ad 96 hours): 04/19/19: 0952HE -----piperacillin-tazobactam (ZOSYN) 3.375 g in 0.9% sodium chloride ([facility]*#[id number] Admin Amount: 3.375 g Ordered Dose: 3.375 g Route: IntraVENous Freq: NOW Start Date: 04/19/19 Rate: 200 mL/hr Duration: 30 Minutes Administration times (back 96 hours, ahead 96 hours): 04/19/19: 1051NB 1300IC -----sodium chloride 0.9 % bolus infusion 1,000 mL #[id number] Admin Amount: 1,000 mL Ordered Dose: 1,000 mL Route: IntraVENous Freq: ONCE Start Date: 04/19/19 Rate: 1,000 mL/hr Duration: 60 Minutes Administrat ion times (back 96 hours, ahead 96 hours): 04/19/19: 1031NB 1300IC -----methylPREDNISolone (PF) (Solu-MEDROL) injection 125 mg #[id number] Admin Amount: 2 mL = 125 mg of 125 mg/2 mL Ordered Dose: 125 mg Route: Int raVENous Freq: NOW Start Date: 04/19/19 Administration times (back 96 hours, ahe ad 96 hours): 04/19/19: 1307GI -----albuterol-ipratropium (DUO-NEB) 2.5 MG-0.5 MG/3 ML #[id number] Admin Amount: 3 mL Ordered Dose: 3 mL Route: Nebulization Freq: NOW Start Date: 04/19/19 Administration times (back 96 hours, ahead 96 hours): 04/19/19: 1307G Evelio Earl MR#: [id number] * Rm: 344-01Ht: 5' 2" Wt: 103 lb Code: Full Code Iso:Diagnosis:Acute hypoxemic respiratory failure (HCC) [J96.01]Allergies: No Know n Allergies -------- Current as of: 04/20/192106 GI=Given HE=Held IC= IV Completed NB=New Bag --vancomycin (VANCOCIN) 1,000 mg in 0.9% sodium chloride 250 mL IVPB #[id number] Admin Amount: 1,000 mg Ordered Dose: 1,000 mg Route: IntraVENous Freq: NOW Start Date: 04/19/19 Rate: 125 mL/hr Duration: 120 Minutes Administration t imes (back 96 hours, ahead 96 hours): 04/19/19: 1307NB 1828IC -----albuterol-ipratropium (DUO-NEB) 2.5 MG-0.5 MG/3 ML #[id number] Admin Amount: 3 mL Ordered Dose: 3 mL Route: Nebulization Freq: EVERY 4 HOURS RESP Start Date: 04/19/19 Administration times (back 96 hours, ahead 96 hours): 04/19/19: 1600G I 2013GI 2355GI 04/20/19: 0408GI 1199GI 1203GI 1946GI 199904/21/19: 0000 0400 0800 1200 1600 199904/22/19: 0000 0400 0800 1200 1600 199904/23/19: 0000 0400 0800 1200 1600 199904/24/19: 0000 0400 0800 1200 1600 1999 ---budesonide (PULMICORT) 500 mcg/2 ml nebulizer suspension #[id number] Admin Amount: 2 mL = 500 mcg of 500 mcg/2 mL Ordered Dose: 500 mcg Route: Neb ulization Freq: 2 TIMES DAILY RESP Start Date: 04/19/19 Administration times (back 96 hours, ahe ad 96 hours): 04/19/19: 2013GI 04/20/19: 1016GI 199904/21/19: 08199904/22/19: 799: 08199904/24/19: 081999 ---pantoprazole (PROTONIX) 40 mg in 0.9% sodium chloride 10 mL injecti on#[id number] Admin Amount: 10 mL = 40 mg of 40 mg/10 mL Ordered Dose: 40 mg Route: Int raVENous Freq: DAILY Start Date: 04/20/19 Administration times (back 96 hours, ahe ad 96 hours): 04/20/19: 1015GI 04/21/19: 89904/22/19: 89904/23/19: 89904/24/19: 899Evelio Carlin MR#: [id number] * Rm: 344-01Ht: 5' 2" Wt: 103 lb Code: Full Co de Iso:Diagnosis:Acute hypoxemic respiratory failure (HCC) [J96.01]Allergies: No Known Allergies -------- Current as of: 04/20/192106 GI=Given HE=Held IC= IV Completed NB=New Bag --acetylcysteine (MUCOMYST) 100 mg/mL (10 %) nebulizer solution 400 mg #[id number] Admin Amount: 4 mL = 400 mg of 100 mg/mL Ordered Dose: 4 mL Route: Inhalatio n Freq: 2 TIMES DAILY Start Date: 04/19/19 Administration times (back 96 hours, ahead 96 hours): 04/19/19: 04/20/19: 89904/21/19: 89904/22/19: 89904/23/19: 899 1800 04/24/19: 899 1799 ---cinacalcet (SENSIPAR) tablet 60 mg #[id number] Admin Amount: 2 Tab (2 x 30 mg Tab) Ordered Dose: 60 mg Route: Oral Dg q: DAILY Start Date: 04/20/19 Administration times (back 96 hours, ahead 96 hours): : 1937GI 04/21/19: 89904/22/19: 89904/23/19: 89904/24/19: 899 ---ALPRAZolam (XANAX) tablet 0.5 mg #[id number] Admin Amount: 1 Tab (1 x 0.5 mg Tab) Ordered Dose: 0.5 mg Route: Per G Tube F req: EVERY BEDTIME Start Date: 04/19/19 Administration times (back 96 hours, ahead 96 hours): 04/19/19: 2246GI 04/20/19: 219904/21/19: 219904/22/19: 219904/23/19: 2199 ---heparin (porcine) injection 5,000 Units #[id number] Admin Amount: 1 mL = 5,000 Units of 5,000 Units/mL Ordered Dose: 5,000 Units Route: SubCUTAneous Freq: EVERY 12 HOURS Start Date: 04/19/19 Administration times (back 96 hours, ahead 96 hours): 04/19/19: 17404/20/19: 0614GI 174604/21/19: 0547 174604/22/19: 0547 174604/23/19: 0547 1747 04/24/19: 0547 1747Evelio Carlin MR#: [id number] ct#: [id number]* Rm: 344-01Ht: 5' 2" Wt: 103 lb Code: Full Code Iso:Diagnosis:Acute hypoxemic respiratory failure (HCC) [J96.01]Allergies: No Known Allergies -------- Current as of: 04/20/192106 GI=Given HE=Held IC= IV Completed NB=New Bag --lamoTRIgine (LaMICtal) tablet 50 mg #[id number] Admin Amount: 2 Tab (2 x 25 mg Tab) Ordered Dose: 50 mg Route: Per G Tub e Freq: EVERY 12 HOURS Start Date: 04/19/19 Administration times (back 96 hours, ahead 96 hours): 04/19/19: 04/20/19: 1937209904/21/19: 89904/22/19: 89904/23/19: 89904/24/19: 899 2099 ---dextrose 5 % - 0.45% NaCl infusion #[id number] Ordered Dose: 70 mL/hr Route: IntraVENous Freq: CONTINUOUS Start Date: 04/19/19 Rate: 70 mL/hr Duration: [facility] 04/19/19: 2113NB 04/20/19: 1938NB -----piperacillin-tazobactam (ZOSYN) 3.375 g in 0.9% sodium chloride (MBP*#[id number] Admin Amount: 3.375 g Ordered Dose: 3.375 g Route: IntraVENous Freq: EVERY 8 HOURS Start Date: 04/19/19 Rate: 25 mL/hr Duration: 240 Minutes Administratio n times (back 96 hours, ahead 96 hours): 04/19/19: 21204/20/19: 0408NB 1329NB 199904/21/19: 0400 1200 199904/22/19: 0400 1200 199904/23/19: 0400 1200 199904/24/19: 0400 1200 1999 ---acetaminophen (TYLENOL) tablet 650 mg #[id number] Admin Amount: 2 Tab (2 x 325 mg Tab) Ordered Dose: 650 mg Route: Oral Dg q: EVERY 4 HOURS NEEDED Start Date: 04/20/19 No administration times (back 96 hours, ahead 96 hours).Guillermo cruztammyEvelio MR#: [id number] * Rm: 344-01Ht: 5' 2" Wt: 103 lb Cod e: Full Code Iso:Diagnosis:Acute hypoxemic respiratory failure (HCC) [J96.01]Allergies: No Known Allergies -------- Current as of: 04/20/192106 GI=Given HE=Held IC= IV Completed NB=New Bag --vancomycin (VANCOCIN) 1,000 mg in 0.9% sodium chloride 250 mL IVPB #[id number] Admin Amount: 1,000 mg Ordered Dose: 1,000 mg Route: IntraVENous Freq: EVERY 12 H OURS Start Date: 04/20/19 Rate: 125 mL/hr Duration: 120 Minutes Administration t imes (back 96 hours, ahead 96 hours): 04/20/19: 1616NB 04/21/19: 0000 1200 04/22/19: 0000 1200 : 0000 1200 04/24/19: 0000 1200 ED Current OP MedicationslamoTRIgine (LA MICTAL) 25 mg rapid dissolve tabletSig:TAKE 2 TABLETS BY MOUTH EVERY 12 HOURSDispense Amount:Start Date:2018End Date:Doc. Provider: Edie Floreszinc oxide 20 % ointmentSig:Apply to affected area as n eeded for Skin Irritation.Dispense Amount:Start Date:End Date:Doc. Provider: Edie Floresomeprazole (PRILOSEC) 2 mg/mL susp 2 mg/mL oral suspension (compounded)Sig:Take 20 mL by mouth daily.Dispense Amount:20 mLStart Date:04/06/2019End Date:Doc. Provider: Christos Lopez MDheparin sodium,porcine (HEPARIN, PORCI NE,) 5,000 unit/mL injectionSi mL by SubCUTAneous route every twelve (12) hours every twelve (12) hour s.Dispense Amount:10 mLStart Date:03/17/2019End Date:Doc. Provider: Reinier, Mili, DOmultivitamin (MULTI-D ELYN, WELLESSE) liqdSi mL by Per G Tube route daily.Dispense Amount:1 BottleStart Date:03/17/2019End D ate:Doc. Provider: Mili Hills DOacetaminophen (TYLENOL) 32MG/ML soln solutionSig:Take 20.3 mL by mouth e very four (4) hours as needed for Pain or Fever.Dispense Amount:500 mLStart Date:03/17/2019End Date:Doc. Prov ider: Mili Hills DOacetylcysteine (MUCOMYST) 100 mg/mL (10 %) nebulizer solutionSig:Take 4 mL by inhal ation two (2) times a day.Dispense Amount:Start Date:End Date:Doc. Provider: Rama Floresorazepat e (TRANXENE) 3.75 mg tabletSi Tab by Per G Tube route nightly. Max Daily Amount: 3.75 mg.Dispense Amount:30 TabStart Date:12/30/2018End Date:Doc. Provider: Mili Hills DOcinacalcet (SENSIPAR) 30 mg tabletSig: Take 2 Tabs by mouth daily.Patient taking differently: 30 mg daily. Via G tubeDispense Amount:60 TabStart Da te:12/30/2018End Date:Doc. Provider: Mili Hills DOalbuterol-ipratropium (DUO-NEB) 2.5 mg -0.5 mg/3 ml nebuSi mL by Nebulization route every six (6) hours. Every 6 hours while awakePatient taking differently: 3 mL by Nebulization route every four (4) hours as needed. Every 6 tammy rs while awakeDispense Amount:30 NebuleStart Date:12/30/2018End Date:Doc. Provider: Mili Hills DOb udesonide (PULMICORT) 0.5 mg/2 mL nbspSi mL by Nebulization route two (2) times a day.Dispense Amount:60 E achStart Date:12/30/2018End Date:Doc. Provider: Mili Hills DO ED Prescripti ons None on FileFollow-up InformationFollow-up With:Cesar Hills DODetails:Comments:Contact Info:[address] [phone] Name Value Range Interpretation Code Description Data [facility] rce(s) Supporting Document(s ) ID Date Data Source [id number] 04/20/2019 07:41:20 PM [facility] TRANSFER - OUT REPORT:Verbal report give n to NANCY Paulson (name) on Evelio Carlin being transferredto 3-T(unit) for routin e progression of careReport consisted of patient's Situation, Background, Assessm ent andRecommendations(SBAR).Information from the following report(s) SBAR was reviewe d with the receivingnurse.Lines:PICC Double Lumen Right;Brachial (Active)Site Assess ment Clean, dry, & intact 04/19/2019 10:29 AMPhlebitis Assessment 0 04/19/2019 10:29 AMDressing Status Clean, dry, & intact 04/19/2019 10:29 AMPICC Double Lumen (Acti ve)Peripheral IV 04/19/19 Left Forearm (Active)Site Assessment Clean, dry, & in tact 04/19/2019 10:31 AMPhlebitis Assessment 0 04/19/2019 10:31 AMInfiltration Assessment 0 04/19/2019 10:31 AMDressing Status Clean, dry, & intact 04/19/2019 10:31 AMHub Color /Line Status [place] 04/19/2019 10:31 AMOpportunity for questions and clarific ation was provided.Patient transported with: MonitorRegistered NurseTech Name Value Range Interpretation Code Description Data [facility] Supporting Document(s ) ID Date Data Source [id number] 04/20/2019 07:37:35 PM [facility] Bedside and Verbal shift change report given to NANCY Bravo (oncoming nurse) byRob Ledezma RN (offgoing nurse ). Report included the following information SBAR, Kardex, EDSummary, Intake/Output, Med Rec Status, Cardiac Rhythm NSR and Quality Measures. Name Value Range Interpretation Code Description Data [facility](s) Supporting Document(s ) ID Date Data Source [id number] 04/26/2019 08:18:47 AM [facility] Name Value Range Interpretation Description Data Sup porting Code Source(s) Document(s ) Service comment [facility] Bacteria BS[facility]S - Good identified in [facility] specimen by Culture ID Date Data Source [id number] 04/26/2019 08:18:46 AM [facility] Name Value Range Interpretation Description Data Sup porting Code Source(s) Document(s ) Service comment [facility] Bacteria BSCHS - Good identified in [facility] specimen by Culture ID Date Data Source [id number] 04/20/2019 02:29:20 PM [facility] Patient attempting to pull off Bipap mas k. Bipap taken off and patient placedon 3l n/c. Spo2 96%, HR 71. No signs of sob at this time. Will continue tomonitor respiratory status. Name Value Range Interpretation Code Description Data Harriett rce(s) Supporting Document(s ) ID Date Data Source [id number] 04/20/2019 02:17:51 PM [facility] Progress NotePatient: Evelio Carlin Sex: male DOA: 04/19/2019Date of : 1950 A ge: 68 y.o. :[id number]:Reyes Carlin is 68 y.o. male on BIPAP, briefly opening his eyes, more awakethan yesterd ay.Positive blood cultures with GPC in clusters Anaerobic bottleHe has picc rig ht upper armRN reporting 500 cc in bladder with straight cath this morning.Bladder scan showing 200+ cc urine in bladderThe patient is nonverbal and unable to provi de a history.He was transferred from [facility] for heavy breathing, fever, and O2 SAT 83 % He has medical history of Dysphagia, recurrent aspiration pneumonia, s/p g/tp lacement 11/17/18 and conversion to jtube on 02/07/19, hyperlipidemia,hyperparathyroi d, unspecified,seizure, large hiatal hernia, anxiety disorder,personal history of pul monary embolus,COPD, GERD, Schizophrenia unspecified,Kyphosis, Parkinson disease , Severe intellectual disabilities, Contracturesand Generalized muscle weak ness. He had positioning of jejeunal feeding tubeand endoclipping on 03/26/19. There was leaking of the TF, the tube was foundwith a crack defect.On 04/01/19 he had endosc opic placemetn of jtube over PEG and removal ofdefective tube. Kinking of the jtube was found on KUB with a large volume ofstool within the distal colon/rectum. Pt was t olerating TF via the peg port andwas discharged to snf and outpatient follow up.On 04/16/2019 pt had ambulatory procedure with gi. Per GI, multiple unsuccessfulat tempts to place PEJ. He is suggesting surgical placement for J tube placement. Will discuss with surgeon and possible get second opinion.The patient was BIB EMS, he was Hypotensive,Tachypneic and Hypoxic with O2 SATof 82 % on NRM. Pt was unres ponsive. He was placed on BIPAP. Chest XR showedbasilar infiltrative change left g reater than right. Small left pleuraleffusion. He was given IV Zosyn and Vancomycin, Tylenol suppository, Duo-Neband Solumedrol. ABG showed a pH 7.42/55/86/36/ O2 SAT 99 % on BIPAP 70 % FIO2.The patient was seen and examined i n the ED on 04/19/2019. He is on BIPAP. 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 Pupils are equalNeck: No adenopathy, thyroid: non tender no rodriguez tid bruit and no JVD.Lungs: Bilateral air entry. Diminished breath sounds rt lung. No Wheezing orRhonchi. No rales.Chest wall: No Accessory muscle use.Heart: Regul ar rate and rhythm, no murmur, or rubAbdomen: Positive PEJ, Soft, +reduc ible hernia, non-tender. Mild fullness andtenderness LLQ. Bowel sounds normal. Extremities: Extremities normal, atraumatic, No cyanosis. No edema. No clubbingSkin: Warm and dry. No rashes or lesions. Not JaundicedLymph nodes: Cervical, supracla vicular normalNeurologic: Nonverbal and lethargicIntake and Output:Current Shift : No intake/output data recorded.Last three shifts: 04/18 1900 - 04/20 0700In: 100 [I.V.:100]Out: 800 [Urine:800]Lab/Data Reviewed:Recent Days:Recent Labs 04/19/200915WBC 12.8* 8.1HGB 10.1* 11.8*HCT 31.8* 36.7*PLT 239 247Recent La bs 04/19/2015NA 136 -- -- 134*K 3.7 -- -- 3.7CL 104 -- -- 92*CO2 30 31* 37* 37*GLU 139* -- -- 118*BUN 13 -- -- 16CREA 0.35* -- -- 0.69*CA 8.6 -- -- 9.8MG 1.7 -- -- --PHOS 2.0* -- -- --ALB 1.6* -- -- 2.1*TBILI -- -- -- 0.2SGOT -- -- -- 21ALT -- -- -- 12*Recent Labs 04/19/200945PH 7.30* 7.42PCO2 60* 55*PO2 134* 86HCO3 30* 36*FIO2 65.0 70.0CULTURE, BLOOD [[id number]] (Order [id number])Microbi ologyDate: 04/19/2019 Department: [facility] Emergency Dept Released By/Authorizing: Joy Coleman, NECKTIE MAKER (auto-released)Specimen Information: Blood Component Value Flag Ref Range Uni ts StatusSpecial Requests: PreliminaryNO SPECIAL REQUESTSGRAM STAIN Prelimin aryGRAM POSITIVE COCCI IN CLUSTERS ANAEROBIC BOTTLEGRAM STAIN PreliminaryCALLED TO AND READ BACK BY ROB LEDEZMARN, ED, 2900 ON 04/20/19 TORISMIRAGLIACulture result: PreliminaryXr Abd (kub)Result Date: 04/05/2019XR ABD (KUB) CLINICAL IN DICATION PROVIDED:. "assess J tube position."TECHNIQUE.: An initial AP imag e of the abdomen was acquired. Additional APimages of the abdomen were acquired af ter the hand-injection of a small volumeof radiopaque contrast by the patient's mason se into the patient's J-tube.COMPARISON:. 04/02/2019. FINDINGS:. The tip of the 2 projects over the midabdomen, at the level of the mid jejunum. Post injection images d emonstrateopacification of loops of mid small bowel. There is no extraluminal contrast appreciated. A large volume of stool projects over the distal colon/rectum.Densities p roject over the lower lungs, right greater than left. Considercorrelation with ches t radiographs.IMPRESSION:. Injected radiopaque contrast appears to be contai nataly within thelumen of the mid small bowel. There is no evidence of extraluminal con trast.Additional findings and recommendations as above.Xr Abd (kub)Result Date: 2018KUB 2 view(s) History: Evaluate J-tube. Comparison: 11/22/2018. There is a newJ-t ube overlying the mid abdomen with kinking involving its superior andinferior porti on overlying the mid abdomen. These findings were discussed withmale nurse Mora at 3:4 0 PM today.. There is mild ileus of the small bowel butthere is no evidence of obstruc tion, radiopaque gallstones, or left kidneystones or an appendicolith. There are possible right kidney stones. Absence ofan appendicolith it does not exclude a ppendicitis. CT is suggested if clinicallyindicated. Old rib fractures a re noted.IMPRESSION: Kinking of J-tube in 2 locations. Possible right kidney stonesI leus.Ir Picc Insert Wo Port Over 5 Years Wo ImgResult Date: 04/01/2019IR PICC INSERT WO PORT OVER 5 YEARS WO IMG CLINICAL INDICATION PROVIDED.:"midline." Medical necessity for vascular access. PROCEDURE: After beinginformed of the risks, benefi ts, potential alternatives to the procedure theinformed consent was obtained. The pa tient was placed on the table the supineposition. The right upper extremit y was prepped and draped in the normal sterilefashion. Ultrasound interrogation was performed of the right upper extremity.Images were obtained. A locat ion was chosen over the right brachial vein abovethe antecubital fossa. Lidocaine so lution was used to anesthetize the scan.Access was gained under ultrasound guidance using a 21-gauge thin-walled needle.A 0.018 a wire was advanced under fluoroscopic guidance into the right axillaryvein. The needle was exchanged o lani a wire for the midline dilator and sheath.The dilator and wire were removed leaving the sheath in situ. Through the sheatha 5 Congolese double-lumen 20 cm midl ine catheter was placed. The peel-away sheathwas removed. The catheter was sewn into position using 2-0 silk sutures. Thepatient tolerated the procedure. Ther e were no complications at the time of theprocedure. FINDINGS: Ultrasound inter rogation revealed a widely patent brachialvein above the antecubital fossa . A 5 Congolese dual-lumen 20 cm midline catheterwas placed. The tip was placed i n good position over the right axillary vein.IMPRESSION: 5 Congolese dual-lumen mid line catheter placed with tip positioned overthe right axillary vein.Xr Chest Por tResult Date: 04/19/2019History: Respiratory difficulty. FINDINGS: A frontal portable view of the chestis submitted for interpretation and is compared to the pr ior study of04/06/2019. EKG leads overlie the chest. A right-sided midline catheter is notedin situ. The cardiac silhouette measures at the upper limits of normal. There ispatchy opacity noted at the lung bases, left greater than right, which ma y beinfiltrative or atelectatic in nature. A small left pleural effusion is noted.Med iastinal and hilar structures are unremarkable.IMPRESSION: Basilar infiltr ative change left greater than right. Small leftpleural effusion.Xr Chest PortResult Date: 04/06/2019CHEST one view HISTORY: Pneumonia. COMPARISON: 03/25/2019. There is a poorinspiratory effort which compromises this interpretation. A repea t study issuggested. There is discoid atelectasis and/or subsegmental left low er lobeatelectasis along the left hemidiaphragm. .There is no gross eviden ce ofcongestion, effusions or pneumothorax.IMPRESSION: Possible left l ower lobe atelectasis. Poor inspiratory effort.Xr Chest PortResult Date: 019CHEST one view HISTORY: Fever. Reflux. Gastrostomy. COMPARISON: 03/11/2019.Ther e is a poor inspiratory effort which compromises this interpretation. Arepeat study is suggested. There is discoid atelectasis and/or left lower lobeinfilt rate.There is no gross evidence of congestion, other infiltrates,effusions or pneumothorax.IMPRESSION: Possible left lower lobe infiltrate. Poor inspiratory effort.Medications reviewedCurrent Facility-Administered MedicationsMedicat ion Dose Route Frequency acetaminophen (TYLENOL) tablet 650 mg 650 mg Oral Q4H PRN vancomycin (VANCOCIN) 1,000 mg in 0.9% sodium chloride 250 mL IVPB 1,000 mgInt raVENous Q12H sodium chloride (NS) flush 5-10 mL 5-10 mL IntraVENous PRN albute rol-ipratropium (DUO-NEB) 2.5 MG-0.5 MG/3 ML 3 mL Nebulization Q4H RT budesonide (PU LMICORT) 500 mcg/2 ml nebulizer suspension 500 mcg NebulizationBID RT pantoprazole (PROTONIX) 40 mg in 0.9% sodium chloride 10 mL injection 40 mgIntraVENous DAILY ac etylcysteine (MUCOMYST) 100 mg/mL (10 %) nebulizer solution 400 mg 4 mLInhalatio n BID cinacalcet (SENSIPAR) tablet 60 mg 60 mg Oral DAILY ALPRAZolam (XANAX) tablet 0.5 mg 0.5 mg Per G Tube QHS heparin (porcine) injection 5,000 Units 5,000 U nits SubCUTAneous Q12H lamoTRIgine (LaMICtal) tablet 50 mg 50 mg Per G Tub e Q12H dextrose 5 % - 0.45% NaCl infusion 70 mL/hr IntraVENous CONTINUOUS piperac illin-tazobactam (ZOSYN) 3.375 g in 0.9% sodium chloride (MBP/ADV) 100mL MBP 3.3 75 g IntraVENous [id number] Outpatient MedicationsMedication Sig lamoTRIgine ( LAMICTAL) 25 mg rapid dissolve tablet TAKE 2 TABLETS BY MOUTHEVERY 12 HOURS zinc oxi de 20 % ointment Apply to affected area as needed for SkinIrritation. omeprazole ( PRILOSEC) 2 mg/mL susp 2 mg/mL oral suspension (compounded) Take20 mL by sarah th daily. heparin sodium,porcine (HEPARIN, PORCINE,) 5,000 unit/mL injection 1 mL b ySubCUTAneous route every twelve (12) hours every twelve (12) hours. multivitamin ( MULTI-DELYN, WELLESSE) liqd 5 mL by Per G Tube route daily. acetaminophen (TYLENO L) 32MG/ML soln solution Take 20.3 mL by mouth every four(4) hours as needed for Pain or Fever. acetylcysteine (MUCOMYST) 100 mg/mL (10 %) nebulizer solution Take 4 m L byinhalation two (2) times a day. clorazepate (TRANXENE) 3.75 mg tablet 1 Tab by Per G Tube route nightly. MaxDaily Amount: 3.75 mg. cinacalcet (SENSIPAR) 30 mg tablet Take 2 Tabs by mouth daily. (Patient takingdifferently: 30 mg daily. Via G tube) albuterol-ipratropium (DUO-NEB) 2.5 mg-0.5 mg/3 ml nebu 3 mL by Nebuliza tionroute every six (6) hours. Every 6 hours while awake (Patient takingdifferently: 3 mL by Nebulization route every four (4) hours as needed. Every 6hours while awak e) budesonide (PULMICORT) 0.5 mg/2 mL nbsp 2 mL by Nebulization route two (2)times a day.Assessment/Plan:Hospital Problems Date Reviewed: 04/20/2019 Codes Class Not ed POA COPD with acute exacerbation (HCC) ICD-10-CM: J44.1ICD-9-CM: 491.21 04/19/19 20 Unknown Acute on chronic respiratory failure with hypoxia and hypercapnia (HC C)ICD-10-CM: J96.21, J96.22ICD-9-CM: 518.84, 786.09, 799.02 04/19/2019 Unknown Acute h ypoxemic respiratory failure (HCC) ICD-10-CM: J96.01ICD-9-CM: 518.81 03/25/2019 Unkno wn Pneumonia ICD-10-CM: J18.9ICD-9-CM: 486 11/08/2018 UnknownAssessment:Sepsis with GPC in clusters Anaerobic bottleAcute Respiratory Failure with Hypoxia and Hyp ercapniaAcute COPD exacerbationAtelectasisS/P Unresponsive like secondary to Toxic Met abolic EncephalopathyDysphagiaMalfunctioning PEJHyperparathyroidSeizureMentally chall engedPlan:IV vancomycin and zosyn per IDFollow up culturesContinue BIPAPCT nelda st /abdomenPulmonary f/uIV fluidsStrict intake and outputInsert lozano catheterCo nt nebulizersDuncan Montes 2019Time: 1:29 PM Name Value Range Interpretation Code Description Data Harriett rce(s) Supporting Document(s ) ID Date Data Source [id number] 04/20/2019 02:12:36 PM [facility] ID Progress Note04/20/2019Subjective:.Siri ent with recurrent aspiration pneumonia,COPD,dysphagia,s/p pegplacemen t,acute respiratory failure was brought by EMS from the long-term forfever of 10 2.6,lethargy,respiratory distress and tachycardia.He was afebrile onarrival to the ER with hypotension.Patient is on BiPAP lethargic unable toprovide history.Histo ry obtained from chart review.Pt seen in ED, his bcx is positive for Gtam positive co cci in clustersPt blood cxObjective:Review of SystemsUnable to provideVitals:Patient V itals for the past 24 hrs: BP Temp Pulse Resp XuR86504/20/19 1345 111/67 - 62 - - 0 1259 - - - 22 -04/20/19 1207 - - - - 98 %04/20/19 1200 105/68 - 70 - -04/20/19 1 151 - 97.2 F (36.2 C) - - -04/20/19 0930 113/64 - 62 - 98 %04/20/19 0900 119/64 - 62 - 99 %04/20/19 0800 100/65 - 68 - -04/20/19 0730 (!) 111/96 - 64 - - 0700 105/65 - 62 - -04/20/19 0630 104/58 - 65 - -04/20/19 0530 104/63 - 68 - 97 % 0436 - 96.9 F (36.1 C) - 20 94 %04/20/19 0430 (!) 125/92 - 77 - - 0400 110/72 - 61 - 95 %04/20/19 0330 107/61 - (!) 59 - 95 %04/20/19 0300 109/ 60 - 60 - 95 %04/20/19 0230 105/55 - 60 - 92 %04/20/19 0200 103/55 - 63 - (!) 89 %10/02 0130 105/60 - 63 - 92 %04/20/19 0100 109/56 - 65 - 91 %04/20/19 0030 112/54 - 64 - 91 %04/19/19 2330 110/59 - (!) 58 - 93 %04/19/19 2300 102/54 - (!) 59 - 90 %09/01 2230 103/57 - 60 - 92 %04/19/19 2108 - 97.1 F (36.2 C) - - -04/19/192027 - - - - 94 %04/19/19 1800 109/59 - 60 17 95 %04/19/19 1745 101/58 - (!) 59 30 91 % 1730 103/58 - 60 30 91 %04/19/19 1706 - - - - 97 %04/19/19 1700 108/75 - 60 26 96 %04/19/19 1645 102/60 - (!) 55 (!) 31 95 %04/19/19 1615 98/57 - (!) 57 29 96 %09/01 1534 - 97.5 F (36.4 C) - - -04/19/19 1515 102/65 - 61 26 -04/19/19 1415 104/5 5 - 61 28 100 %Tmax: Temp (24hrs), Av.2 F (36.2 C), Min:96.9 F (36.1 C), Max: 97.5 F(36.4 C)R arm + PICCPhysical Exam:General: Unresponsive on BiPAP, no distress, appears stated age.Eyes: Conjunctivae/corneas clear. PERRLNeck: S upple, symmetrical, trachea midline, no adenopathyLungs: Bilateral breath soun ds with basal crackles.Heart: Regular rate and rhythm, S1, S2 normal, no murmuAbdom en: Soft, non-tender. Bowel sounds normal. No masses, Noorganomegaly.peg+Back: N o CVA tenderness.Extremities: Extremities normal, atraumatic, no cyanosis or edema .Pulses: 2+ and symmetric all extremities.Skin: Skin color, texture, t urgor normal. No rashes or lesionsLymph nodes: Cervical, supraclavicular, and ax illary nodes normal.Neurologic: UnresponsiveCurrent Facility-Administere d MedicationsMedication Dose Route Frequency acetaminophen (TYLENOL) tablet 650 mg 6 50 mg Oral Q4H PRN vancomycin (VANCOCIN) 1,000 mg in 0.9% sodium chloride 250 mL IVPB 1,000 mgIntraVENous Q12H sodium chloride (NS) flush 5-10 mL 5-10 mL Int raVENous PRN albuterol-ipratropium (DUO-NEB) 2.5 MG-0.5 MG/3 ML 3 mL Nebulization Q4 H RT budesonide (PULMICORT) 500 mcg/2 ml nebulizer suspension 500 mcg Nebulizati onBID RT pantoprazole (PROTONIX) 40 mg in 0.9% sodium chloride 10 mL injection 40 mgIntraVENous DAILY acetylcysteine (MUCOMYST) 100 mg/mL (10 %) nebulizer so lution 400 mg 4 mLInhalation BID cinacalcet (SENSIPAR) tablet 60 mg 60 mg Oral KYLEIGH Y ALPRAZolam (XANAX) tablet 0.5 mg 0.5 mg Per G Tube QHS heparin (porcine) inject ion 5,000 Units 5,000 Units SubCUTAneous Q12H lamoTRIgine (LaMICtal) tablet 50 m g 50 mg Per G Tube Q12H dextrose 5 % - 0.45% NaCl infusion 70 mL/hr IntraVENou s CONTINUOUS piperacillin-tazobactam (ZOSYN) 3.375 g in 0.9% sodium chloride (MBP/ADV ) 100mL MBP 3.375 g IntraVENous [id number] Outpatient MedicationsMedication Sig la moTRIgine (LAMICTAL) 25 mg rapid dissolve tablet TAKE 2 TABLETS BY MOUTHEVERY 12 H OURS zinc oxide 20 % ointment Apply to affected area as needed for SkinIrritati on. omeprazole (PRILOSEC) 2 mg/mL susp 2 mg/mL oral suspension (compounded) Take2 0 mL by mouth daily. heparin sodium,porcine (HEPARIN, PORCINE,) 5,000 unit/mL inject ion 1 mL bySubCUTAneous route every twelve (12) hours every twelve (12) hours. mul tivitamin (MULTI-DELYN, WELLESSE) liqd 5 mL by Per G Tube route daily. acetaminophe n (TYLENOL) 32MG/ML soln solution Take 20.3 mL by mouth every four(4) hours as neede d for Pain or Fever. acetylcysteine (MUCOMYST) 100 mg/mL (10 %) nebulizer so lution Take 4 mL byinhalation two (2) times a day. clorazepate (TRANXENE) 3.75 mg tab let 1 Tab by Per G Tube route nightly. MaxDaily Amount: 3.75 mg. cinacalcet (S ENSIPAR) 30 mg tablet Take 2 Tabs by mouth daily. (Patient takingdifferently: 30 mg daily. Via G tube) albuterol-ipratropium (DUO-NEB) 2.5 mg-0.5 mg/3 ml nebu 3 mL b y Nebulizationroute every six (6) hours. Every 6 hours while awake (Patient takin gdifferently: 3 mL by Nebulization route every four (4) hours as needed. Every 6h ours while awake) budesonide (PULMICORT) 0.5 mg/2 mL nbsp 2 mL by Nebulization route two (2)times a day.Labs:Recent Labs 04/19/200915WBC 12.8* 8.1HG B 10.1* 11.8*PLT 239 247BUN 13 16CREA 0.35* 0.69*SGOT -- 21AP -- 75TBILI -- 0. 2Cultures:No results found for: SDESLab ResultsComponent Value Date/Time Culture result: IDENTIFICATION AND SUSCEPTIBILITY TO FOLLOW 04/19/2019 10:15 AM Culture resul t: IDENTIFICATION AND SUSCEPTIBILITY TO FOLLOW 04/19/2019 10:05 AM Culture resul t: NO GROWTH 5 DAYS 03/25/2019 03:10 AMRadiology:No results found.Assessment: . Sepsis GPC POA Aspiration PNA Acute COPD exacerbation. Acute respiratory fa ilure. DysphagiaPlan:1. Continue IV zosyn2. Add IV Vancomycin3. Repeat BCx x 2 set t oday4. Follow ID and sensitivity of GPCMonica Gomez MDJanuary 6 PM Name Value Range Interpretation Code Description Data [facility](s) Supporting Document(s ) ID Date Data Source [id number] 04/20/2019 01:51:33 PM [facility] Pt baldder scanned:217ml. Dr. Hills not ified. Order obtained for blake. Name Value Range Interpretation Code Description Data [facility](s) Supporting Document(s ) ID Date Data Source [id number] 04/20/2019 12:13:31 PM [facility] Patient received on v60 Bipap @ 14/6 f20 50%/ . Patient taken off Bipap toassess skin breakdown and respiratory status. No signs of skin breakdown onnose or face at this time . Patient is placed on a evelyn nuous BiPAP due to mildrespiratory distress. Allevyn applied to prevent skin breakdow n with mediumsize face mask. Name Value Range Interpretation Code Description Data [facility](s) Supporting Document(s ) ID Date Data Source [id number] 04/20/2019 11:17:57 AM [facility] ADMISSION NOTENAME: Evelio Morgan B: 1950MRN: [id number]/Time: 04/20/2019 1:19 AMSubjective:CHIEF COMPLAI NT: Fever and HypoxiaHISTORY OF PRESENT ILLNESS:Evelio is a 68 y.o. male who was transferred from [facility] for heavy breathing,fever, Temp 102.6 and O2 83 %. The patient is nonverbal and unable to provide ahistory. He has medical history of Dysphagia, recurrent aspiration pneumonia, s/p g/tplacement 11/17/18 and conversion to jtube on02/07/19, hyperlipidemia,hyperparathyroid, unspeci fied,seizure, large hiatalhernia, anxiety disorder, personal history of pulmonary embolus,COPD, GERD,Schizophrenia unspecified, Kyphosis, Parkinson disease, Severe int ellectualdisabilities, Contractures and Generalized muscle weakness. He had posi tioningof jejeunal feeding tube and endoclipping on 03/26/19. There was leak ing of theTF, the tube was found with a crack defect.On 04/01/19 he had endoscopic jocelyn cemetn of jtube over PEG and removal ofdefective tube. Kinking of the jtube was found on KUB with a large volume ofstool within the distal colon/rectum. Pt was t olerating TF via the peg port andwas discharged to snf and outpatient follow up.On 04/16/2019 pt had ambulatory procedure with gi. Per GI, multiple unsuccessfulat tempts to place PEJ. He is suggesting surgical placement for J tube placement. Will discuss with surgeon and possible get second opinion.The patient was BIB EMS, he was Hypotensive,Tachypneic and Hypoxic with O2 SATof 82 % on NRM. Pt was unres ponsive. He was placed on BIPAP. Chest XR showedbasilar infiltrative change left g reater than right. Small left pleuraleffusion. He was given IV Zosyn and Vancomycin, Tylenol suppository, Duo-Neband Solumedrol. ABG showed a pH 7.42/55/86/36/ O2 SAT 99 % on BIPAP 70 % FIO2.The patient was seen and examined i n the ED on 04/19/2019. He is on BIPAP. Heis unresponsive. 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 No pertinent family history.No Known AllergiesPrior to Admis elio medicationsMedication Sig Start Date End Date Taking? Authorizing ProviderlamoTRI gine (LAMICTAL) 25 mg rapid dissolve tablet TAKE 2 TABLETS BY MOUTH EVERY12 HOURS Provider, Historicalzinc oxide 20 % ointment Apply to affected area as need ed for Skin Irritation.Provider, Historicalomeprazole (PRILOSEC) 2 mg/mL susp 2 mg/mL oral suspension (compounded) Take 20mL by mouth daily. 04/06/19 Christos Gilbert MDheparin sodium,porcine (HEPARIN, PORCINE,) 5,000 unit/mL inject ion 1 mL bySubCUTAneous route every twelve (12) hours every twelve (12) hours. 03/17Mili Hills DOmultivitamin (MULTI-DELYN, WELLESSE) liqd 5 mL by Per G Tube route daily.03/17/19 Mili Hills DOacetaminophen (TYLENOL) 32MG/ ML soln solution Take 20.3 mL by mouth every four(4) hours as needed for Pain or Feve r. 03/17/19 Mili Hills DOacetylcysteine (MUCOMYST) 100 mg/mL (1 0 %) nebulizer solution Take 4 mL byinhalation two (2) times a day. Pro vider, Historicalclorazepate (TRANXENE) 3.75 mg tablet 1 Tab by Per G Tube route nigh tly. MaxDaily Amount: 3.75 mg. 12/30/18 Mili Hills DOcinacalcet (SENSIPAR) 30 mg tablet Take 2 Tabs by mouth daily.Patient taking differently: 30 mg daily. Via G tube 12/30/18 Mili Hills DOalbuterol-ipratropium (DUO-NEB ) 2.5 mg-0.5 mg/3 ml nebu 3 mL by Nebulizationroute every six (6) hours. E very 6 hours while awakePatient taking differently: 3 mL by Nebulization route every four (4) hours asneeded. Every 6 hours while awake 12/30/18 Mili Hills D Obudesonide (PULMICORT) 0.5 mg/2 mL nbsp 2 mL by Nebulization route two (2) timesa day . 12/30/18 Mili Hills DOREVIEW OF SYSTEMS: [x] Unable to obtain ROS due to patient factors.Objective:VITALS:Visit VitalsBP 112/54Pulse 64Temp 97.1 F (36. 2 C)Resp 17Ht 5' 2" (1.575 m)Wt 46.7 kg (103 lb)SpO2 91%BMI 18.84 kg/m PHYSICAL EXAM: General: Unresponsive, wearing bipap mask appears stated age.Head: Normocephalic , without obvious abnormality, atraumatic.Eyes: Conjunctivae clear, a nicteric sclerae. Pupils are dilated, minimallyreactiveNeck: Supple, symmetri inez, no adenopathy, no carotid bruit and no JVD.Lungs: Bilateral air entry, dimini shed breath sounds. No Wheezing or Rhonchi.No rales.Chest wall: No Accesso ry muscle use.Heart: Regular rate and rhythm, no murmur, or rub.Abdomen: + PEJ, + reducible hernia, soft, non-tender. Not distended. Bowelsounds hyperactive. Extremities: Extremities normal, atraumatic, No cyanosis. No edema. No clubbing+ low er extremity contractureSkin: Warm and dry. No rashes or lesions. Not Jaundic edLymph nodes: Cervical, supraclavicular normal.Neurologic: UnresponsiveLAB DATA REVIEWED:Recent Results (from the past 24 hour(s))EKG, 12 LEAD, INITIAL Collection Time: 04/19/19 9:58 AMResult Value Ref Range Ventricular Rate 92 BPM Atrial Rat e 93 BPM P-R Interval 110 ms QRS Duration 95 ms Q-T Interval 343 ms QTC Calculation ( Bezet) 424 ms Calculated P Cambridge 44 degrees Calculated R Cambridge 26 degrees Calculated T Cambridge -44 degrees Diagnosis Sinus rhythmBorderline short TN intervalLVH wi th secondary repolarization abnormalityProbable anterior infarct, ag e indeterminateAbnormal T, consider ischemia, inferior leadsLACTIC ACID Collection Patria e: 04/19/19 10:15 AMResult Value Ref Range Lactic acid 2.6 (HH) 0.4 - 2.0 MMOL/LCBC WITH AUTOMATED DIFF Collection Time: 04/19/19 10:15 AMResult Value Ref Range WBC 8.1 4.8 - 10.6 K/uL RBC 3.78 (L) 4.70 - 6.00 M/uL HGB 11.8 (L) 14.0 - 18.0 g/dL HCT 36.7 (L) 42.0 - 52.0 % MCV 97.1 (H) 81.0 - 94.0 FL MCH 31.2 27.0 - 35.0 PG MCHC 3 2.2 30.7 - 37.3 g/dL RDW 16.6 (H) 11.5 - 14.0 % PLATELET 247 130 - 400 K/uL MPV 9.4 9. 2 - 11.8 FL NRBC 0.0 0 PER 100 WBC ABSOLUTE NRBC 0.00 0.0 - 0.01 K/uL NEUTROPHILS 78 (H) 48.0 - 72.0 % LYMPHOCYTES 9 (L) 18.0 - 40.0 % MONOCYTES 12 2.0 - 12.0 % EOSINOP HILS 0 0.0 - 7.0 % BASOPHILS 0 0.0 - 3.0 % IMMATURE GRANULOCYTES 1 (H) 0 - 0.5 % AB S. NEUTROPHILS 6.4 2.3 - 7.6 K/UL ABS. LYMPHOCYTES 0.7 (L) 0.9 - 4.2 K/UL ABS. MONOCYTES 1.0 0.1 - 1.7 K/UL ABS. EOSINOPHILS 0.0 0.0 - 1.0 K/UL ABS. BASOPHILS 0.0 0. 0 - 0.4 K/UL ABS. IMM. GRANS. 0.1 0.0 - 0.17 K/UL DF AUTOMATEDMETABOLIC PANEL, COMPRE HENSIVE Collection Time: 04/19/19 10:15 AMResult Value Ref Range Sodium 134 (L) 136 - 145 mmol/L Potassium 3.7 3.5 - 5.1 mmol/L Chloride 92 (L) 98 - 107 mmol/L C O2 37 (H) 21 - 32 mmol/L Anion gap 9 (L) 10 - 20 mmol/L Glucose 118 (H) 74 - 106 mg/dL BUN 16 7 - 18 mg/dL Creatinine 0.69 (L) 0.70 - 1.30 mg/dL GFR est AA >60 >60 ml/min/1 .73m2 GFR est non-AA >60 >60 ml/min/1.73m2 Calcium 9.8 8.5 - 10.1 mg/dL Bilirubin, total 0.2 0.2 - 1.0 mg/dL ALT (SGPT) 12 (L) 13 - 61 U/L AST (SGOT) 21 15 - 37 U/L Al k. phosphatase 75 45 - 117 U/L Protein, total 6.3 (L) 6.4 - 8.2 g/dL Albumin 2.1 (L) 3 .5 - 4.7 g/dL Globulin 4.2 1.7 - 4.7 g/dL A-G Ratio 0.5 (L) 0.7 - 2.8TROPONIN I Collec tion Time: 04/19/19 10:15 AMResult Value Ref Range Troponin-I, Qt. 0.05 0.00 - 0.05 N G/MLBLOOD GAS, ARTERIAL Collection Time: 04/19/19 10:45 AMResult Value Ref Range pH 7.42 7.35 - 7.45 PCO2 55 (H) 32 - 48 mmHg PO2 86 83 - 108 mmHg CO2, TOTAL 37 (H) 1 9 - 24 mmol/L BICARBONATE 36 (H) 21 - 28 mmol/L O2 SAT 99 (H) 94 - 98 % BASE EXCE SS 9.3 (H) 0 - 3 mmol/L SITE RIGHT RADIAL MIRANDA'S TEST POSITIVE DEVICE BIPAP FIO2 70.0 % MODE BIPAP PEEP/CPAP 5 PRESSURE SUPPORT 14 RATE 20 Performed by [id number] TIC ACID Collection Time: 04/19/19 2:20 PMResult Value Ref Range Lactic acid 1.8 0.4 - 2.0 MMOL/LURINALYSIS W/ RFLX MICROSCOPIC Collection Time: 04/19/19 4 :56 PMResult Value Ref Range Color YELLOW YEL Appearance CLEAR CLEAR Specific gravity 1.015 1.003 - 1.030 pH (UA) 7.0 4.6 - 8.0 Protein NEGATIVE NEG mg/dL Glucose NEGA TIVE NEG mg/dL Ketone NEGATIVE NEG mg/dL Bilirubin NEGATIVE NEG Blood NEGATIVE NEG Urobilinogen 1.0 0.2 - 1.0 EU/dL Nitrites NEGATIVE NEG Leukocyte Esterase NEGATIV E NEGBLOOD GAS, ARTERIAL Collection Time: 04/19/19 4:59 PMResult Value Ref Range pH 7.30 (L) 7.35 - 7.45 PCO2 60 (H) 32 - 48 mmHg PO2 134 (H) 83 - 108 mmHg CO2, TOTA L 31 (H) 19 - 24 mmol/L BICARBONATE 30 (H) 21 - 28 mmol/L O2 SAT 100 (H) 94 - 98 % BAS E EXCESS 1.6 0 - 3 mmol/L SITE RIGHT RADIAL MIRANDA'S TEST POSITIVE DEVICE BIPAP FIO2 65.0 % MODE BIPAP PEEP/CPAP 5 PRESSURE SUPPORT 14 RATE 20 Performed by [id number] essment/Plan:Active Problems: Pneumonia (11/08/2018) Acute hypoxemic respiratory failure (HCC) (03/25/2019) COPD with acute exacerbation (HCC) (04/19/2019) Acute on chronic respiratory failure with hypoxia and hypercapnia (HCC)(04/19/2019) Acute Respir atory Failure with Hypoxia and Hypercapnia Acute COPD exacerbation AtelectasisPneumoniaUnresponsiveDysphagi aHyperparathyroidSeizure disorderMentally challenged PLAN:Risk of deterioration: []Low [x]Moderate [] High1. Admit to telemetry2. Bipap3. Consult pulmonary4. IV zosyn per ID5. nebulizers 6. IV fluids7. Follow up culturesProphylaxis: []Lovenox []Coumadin [x]Hep SQ [x]SC D's [x]H2B/PPIDisposition: []Home w/ Family []HH PT,OT,RN [x]SNF/LTC []SAH/Yoli abDiscussed Code Status: [x]Full Code []DNR Care Plan discussed with: []Patient []Family []ED Care Manage r [x]ED Doc [x]Specialist : Felipe, pulmonary Admitting Physician: Mili Hills DO April 20, 2019 1:19 AM Name Value Range Interpretation Code Description Data Harriett rce(s) Supporting Document(s ) ID Date Data Source [id number] 04/20/2019 07:28:16 AM EST [facility] Verbal report/SBAR given to NANCY Navarro Name Value Range Interpretation Code Description Data Harriett rce(s) Supporting Document(s ) ID Date Data Source [id number] 04/20/2019 08:01:10 AM EST [facility] Name Value Range Interpretation Description Data Sup porting Code Source(s) Document(s ) Leukocytes 12.8 4.8-10.6 Above high normal [facility] - [#/volume] in K/uL Good Blood by Taoist Automated count [facility] Erythrocytes 3.23 4.70-6.0 Below low normal [facility] - [#/volume] in M/uL 0 Good Blood by [facility] Automated count Hospital Hemoglobin 10.1 14.0-18. Below low normal [facility] - [Mass/volume] in g/dL 0 Good Blood [facility] Hematocrit 31.8 % 42.0-52. Below low normal [facility] - [Volume 0 Good Fraction] of Taoist Blood by Hospital Automated count Erythrocyte mean 98.5 FL 81.0-94. Above high normal [facility] - corpuscular 0 Good volume [Entitic Taoist volume] by Hospital Automated count Erythrocyte mean 31.3 PG 27.0-35. [facility] - corpuscular 0 Good hemoglobin Taoist [Entitic mass] [facility] by Automated count Erythrocyte mean 31.8 30.7-37. [facility] - corpuscular g/dL 3 Good hemoglobin [facility] [Mass/volume] by Automated count Erythrocyte 16.7 % 11.5-14. Above high normal [facility] - distribution 0 Good width [Ratio] by [facility] Automated count Hospital Platelets 239 K/uL 130-400 [facility] - [#/volume] in Good Blood by [facility] Automated count Hospital Platelet mean 9.7 FL 9.2-11.8 [facility] - volume [Entitic Good volume] in Blood [facility] by Automated Hospital count Nucleated 0.0 PER 0 [facility] - erythrocytes/100 100 WBC Good leukocytes Taoist [Ratio] in Blood Hospital Nucleated 0.00 0.0-0.01 [facility] - erythrocytes K/uL Good [#/volume] in [facility] Segmented 64 % 48.0-72. [facility] - neutrophils/100 0 Good leukocytes in [facility] Band form 19 % 0 Above high normal [facility] - neutrophils/100 Good leukocytes in Tao[facility] Blood by Manual Hospital count Lymphocytes/100 10 % 18.0-40. Below low normal [facility] - leukocytes in 0 [facility] Monocytes/100 6 % 2.0-12.0 [facility] - leukocytes in [facility] Eosinophils/100 0 % 0.0-7.0 [facility] - leukocytes in [facility] Basophils/100 0 % 0.0-3.0 [facility] - leukocytes in [facility] Myelocytes/100 1 % 0 Above high normal [facility] - leukocytes in [facility] Blood by Manual Tao[facility] count Hospital Immature 0 % [facility] - granulocytes/100 Good leukocytes in Taoist Blood by Hospital Automated count Segmented 10.7 2.3-7.6 Above high normal [facility] - neutrophils K/UL Good [#/volume] in [facility] Lymphocytes 1.3 K/UL 0.9-4.2 [facility] - [#/volume] in [facility] Monocytes 0.8 K/UL 0.1-1.7 [facility] - [#/volume] in [facility] Eosinophils 0.0 K/UL 0.0-1.0 [facility] - [#/volume] in [facility] Blood [facility] Basophils 0.0 K/UL [facility] - [#/volume] in [facility] Blood [facility] Immature 0.0 K/UL [facility] - granulocytes Good [#/volume] in Tao[facility] Blood by Hospital Automated count 1+ANISOCYTOSIS Platelet adequacy [Presence] in Blood by [facility] Light microscopy Differential cell count method - Blood [facility] ID Date Data Source [id number] 04/20/2019 05:13:32 AM EST [facility] Name Value Range Interpretation Description Data Sup porting Code Source(s) Document(s ) Troponin 0.00-0.05 [facility] - Good I.cardiac [facility]ist [Mass/volume Hospital ] in Serum or Plasma (NOTE)The presence of detectable troponi n above the reference rangeindicates myocardial injury which may be due to is chemia,myocarditis, trauma, etc. Clinical correlation is necessary todetermine the significance of this finding. Sequential testing isrecommended to determine if th e typical rise and fall of cTnI isdemonstrated. Note, cardiac troponin-I has a relatively longhalf-life and may be present well after the CK MB has returne d tobaseline. cTnI results in the indeterminate/enriquez zone for myocardial infarction: 0.06 to 0.59 ng/mL cTnI cutoff/range of values consistent with m yocardial infarction: 0.60 to 1.50 ng/mL ID Date Data Source [id number] 04/20/2019 05:13:32 AM EST [facility] Name Value Range Interpretation Description Data Sup porting Code Source(s) Document(s ) Sodium 136 136-145 [facility] - Good [Moles/volume] mmol/L [facility]ist in Serum or Hospital Plasma Potassium 3.7 3.5-5.1 [facility] - Good [Moles/volume] mmol/L [facility] in Serum or Hospital Plasma Chloride 104 98-107 [facility] - Good [Moles/volume] mmol/L [facility] in Serum or Hospital Plasma Carbon 30 21-32 [facility] - Good dioxide, total mmol/L [facility]ist [Moles/volume] Hospital in Serum or Plasma Anion gap in 6 mmol/L 10-20 Below low normal [facility] - Go od Serum or [facility] Plasma Hospital Glucose 139 74-106 Above high normal [facility] - Good [Mass/volume] mg/dL [facility] in Serum or Hospital Plasma Urea nitrogen 13 mg/dL 7-18 [facility] - Good [Mass/volume] Taoist in Serum or Hospital Plasma Creatinine 0.35 0.70-1.3 Below low normal [facility] - Good [Mass/volume] mg/dL 0 [facility] in Serum or Hospital Plasma Glomerular >60 [facility] - Good filtration Taoist rate/1.73 sq M Hospital predicted among blacks [Volume Rate/Area] in Serum or Plasma by Creatinine-bas ed formula (MDRD) Glomerular >60 [facility] - Good filtration Taoist rate/1.73 sq M Hospital predicted among non-blacks [Volume Rate/Area] in Serum or Plasma by Creatinine-bas ed formula (MDRD) Calcium 8.6 8.5-10.1 [facility] - Good [Mass/volume] mg/dL [facility]ist in Serum or Hospital Plasma Phosphate 2.0 2.5-4.9 Below low normal [facility] - Good [Mass/volume] mg/dL [facility] in Serum or Hospital Plasma Albumin 1.6 g/dL 3.5-4.7 Below low normal [facility] - Good [Mass/volume] [facility] in Serum or Hospital Plasma by Bromocresol purple (BCP) dye binding method ID Date Data Source [id number] 04/20/2019 05:13:32 AM [facility] Name Value Range Interpretation Description Data Sup porting Code Source(s) Document(s ) Magnesium 1.7 mg/dL 1.6-2.6 [facility] - Good [Mass/volume] Taoist in Serum or Hospital Plasma ID Date Data Source [id number] 04/19/2019 08:43:51 PM [facility] Spoke with RN from [place] regarding pt's G-tube. He stated the centralport does not work and that they have been using t he larger of the two otherports (the suction port) for medications. Name Value Range Interpretation Code Description Data Harriett rce(s) Supporting Document(s ) ID Date Data Source [id number] 04/19/2019 07:59:21 PM [facility] Infectious Disease ConsultToday's Date: 04/19/2019Admit Date: 04/19/2019Subjective:Date of Consultation: April 19, 2019Referrmarty oro Physician: Justice Hills is a 68 y.o. male who is being seen for pneumonia /r/ o sepsis.Patientwith recurrent aspiration pneumonia,COPD,dysphagia,s/p peg placeme nt,acuterespiratory failure was brought by EMS from the long-term for fever of10 2.6,lethargy,respiratory distress and tachycardia.He was afebrile on arrivalto the ER with hypotension.Patient is on BiPAP lethargic unable to providehistory.Histo ry obtained from chart review.Patient Active Problem ListDiagnosis Code Paraesophage al hiatal hernia K44.9 COPD (chronic obstructive pulmonary disease) ([facility]) J44 .9 Acute respiratory distress R06.03 Pneumonia J18.9 COPD exacerbation ([facility]) J44.1 Sepsis due to undetermined organism ([facility]) A41.9 Generalized anxiety disorde r F41.1 Acute respiratory failure with hypoxia ([facility]) J96.01 Pneumonia involvin g right lung J18.9 Hyponatremia E87.1 SOB (shortness of breath) R06.02 Pressure i njury of right heel, stage [address]) L89.612 Leg wound, right, initial encounter S81. 801A Acute hypoxemic respiratory failure ([facility]) J96.01 COPD with acute exacerbati on ([facility]) J44.1 Acute on chronic respiratory failure with hypoxia and hypercapnia ([facility])J96.21, J96.22Past Medical History:Diagnosis Date Chronic obstruct britni pulmonary disease ([facility]) Diaphragmatic hernia without obstruction and without g angrene GERD (gastroesophageal reflux disease) Hyperparathyroidism (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) Pneumonia Psychiatric disorder s chizophrenia Pulmonary emboli ([facility]) Schizophrenia ([facility])History reviewed. No pertinent family history.Social HistoryTobacco Use Smoking status: Nilo uribe Smoker Smokeless tobacco: Never UsedSubstance Use Topics Alcohol use: N oPast Surgical History:Procedure Laterality Date HX GASTROSTOMY PEG- replaced 9Prior to Admission medicationsMedication Sig Start Date End Date Taking? Authorizing ProviderlamoTRIgine (LAMICTAL) 25 mg rapid dissolve tablet TAKE 2 TABLETS BY MOUTH EVERY12 HOURS 03/18/19 Provider, Ediezinc oxide 20 % ointment Apply to affected area as needed for Skin Irritation.Provider, Edieomeprazol e (PRILOSEC) 2 mg/mL susp 2 mg/mL oral suspension (compounded) Take 20mL by sarah th daily. 04/06/19 Christos Lopez MDheparin sodium,porcine (HEPARIN, PORCI NE,) 5,000 unit/mL injection 1 mL bySubCUTAneous route every twelve (12) h ours every twelve (12) hours. 03/17/19Mili Hills DOmultivitamin (MULTI-DELYN, WE LLESSE) liqd 5 mL by Per G Tube route daily.03/17/19 Mili Hlils DOaceta minophen (TYLENOL) 32MG/ML soln solution Take 20.3 mL by mouth every four(4) hours as needed for Pain or Fever. 03/17/19 Mili Hills DOacetylcysteine (MUCOMYST) 100 mg/mL (10 %) nebulizer solution Take 4 mL byinhalation two (2) times a day. Pro vider, Historicalclorazepate (TRANXENE) 3.75 mg tablet 1 Tab by Per G Tube route nigoss healthy. MaxDaily Amount: 3.75 mg. 12/30/18 Mili Hills DOcinacalcet (SENSIPAR) 30 mg tablet Take 2 Tabs by mouth daily.Patient taking differently: 30 mg daily. Via G tube 12/30/18 Mili Hills DOalbuterol-ipratropium (DUO-NEB ) 2.5 mg-0.5 mg/3 ml nebu 3 mL by Nebulizationroute every six (6) hours. E very 6 hours while awakePatient taking differently: 3 mL by Nebulization route every four (4) hours asneeded. Every 6 hours while awake 12/30/18 Mili Hills D Obudesonide (PULMICORT) 0.5 mg/2 mL nbsp 2 mL by Nebulization route two (2) timesa day . 12/30/18 Mili Hills DONo Known AllergiesReview of SystemsPatient is maria isabel ble to provide due to mental statusObjective:Visit VitalsBP 109/59Pul se 60Temp 97.5 F (36.4 C)Resp 17Ht 5' 2" (1.575 m)Wt 46.7 kg (103 lb)SpO2 95%BMI 18.84 kg/m Temp (24hrs), Av.9 F (36.6 C), Min:97.5 F (36.4 C), Max:98.2 F ( 36.8 C)Lines: PICC:Physical Exam:General: Unresponsive on BiPAP, no distress, appe ars stated age.Eyes: Conjunctivae/corneas clear. PERRLNeck: Supple, symmetrical, t rachea midline, no adenopathyLungs: Bilateral breath sounds with basal crack les.Heart: Regular rate and rhythm, S1, S2 normal, no murmuAbdomen: Soft, non-ten bassem. Bowel sounds normal. No masses, Noorganomegaly.peg+Back: No CVA tender ness.Extremities: Extremities normal, atraumatic, no cyanosis or edema.Pulses: 2+ and symmetric all extremities.Skin: Skin color, texture, turgor normal. No rashes or lesionsLymph nodes: Cervical, supraclavicular, and axillary nodes norm al.Neurologic: UnresponsiveData Review:Labs:Recent Results (from [facility] t 24 hour(s))EKG, 12 LEAD, INITIAL Collection Time: 04/19/19 9:58 AMResult Value Ref Range Ventricular Rate 92 BPM Atrial Rate 93 BPM P-R Interval 110 ms QRS Duration 95 ms Q-T Interval 343 ms QTC Calculation (Bezet) 424 ms Calculated P Cambridge 44 degr ees Calculated R Cambridge 26 degrees Calculated T Cambridge -44 degrees Diagnosis Sinus rhythm Borderline short TN intervalLVH with secondary repolarization abnormalityProb able anterior infarct, age indeterminateAbnormal T, consider ischem ia, inferior leadsLACTIC ACID Collection Time: 04/19/19 10:15 AMResult Value Ref Range Lactic acid 2.6 (HH) 0.4 - 2.0 MMOL/LCBC WITH AUTOMATED DIFF Collection Time: 04/19/19 10:15 AMResult Value Ref Range WBC 8.1 4.8 - 10.6 K/uL RBC 3.78 ( L) 4.70 - 6.00 M/uL HGB 11.8 (L) 14.0 - 18.0 g/dL HCT 36.7 (L) 42.0 - 52.0 % MCV 97.1 (H) 81.0 - 94.0 FL MCH 31.2 27.0 - 35.0 PG MCHC 32.2 30.7 - 37.3 g/dL RDW 16.6 (H) 11.5 - 14.0 % PLATELET 247 130 - 400 K/uL MPV 9.4 9.2 - 11.8 FL NRBC 0.0 0 PER 100 WBC ABSOLUTE NRBC 0.00 0.0 - 0.01 K/uL NEUTROPHILS 78 (H) 48.0 - 72.0 % LYMPHOC YTES 9 (L) 18.0 - 40.0 % MONOCYTES 12 2.0 - 12.0 % EOSINOPHILS 0 0.0 - 7.0 % BASOPHI LS 0 0.0 - 3.0 % IMMATURE GRANULOCYTES 1 (H) 0 - 0.5 % ABS. NEUTROPHILS 6.4 2.3 - 7.6 K/UL ABS. LYMPHOCYTES 0.7 (L) 0.9 - 4.2 K/UL ABS. MONOCYTES 1.0 0.1 - 1.7 K/UL ABS. E OSINOPHILS 0.0 0.0 - 1.0 K/UL ABS. BASOPHILS 0.0 0.0 - 0.4 K/UL ABS. IMM. GRANS. 0.1 0.0 - 0.17 K/UL DF AUTOMATEDMETABOLIC PANEL, COMPREHENSIVE Collection Time: 04/19/19 10:15 AMResult Value Ref Range Sodium 134 (L) 136 - 145 mmol/L Potassium 3.7 3.5 - 5.1 mmol/L Chloride 92 (L) 98 - 107 mmol/L CO2 37 (H) 21 - 32 mmol/L Anion gap 9 (L) 10 - 20 mmol/L Glucose 118 (H) 74 - 106 mg/dL BUN 16 7 - 18 mg/dL Creatinine 0.69 (L) 0.70 - 1.30 mg/dL GFR est AA >60 >60 ml/min/1.73m2 GFR est non-AA >60 >60 ml/ min/1.73m2 Calcium 9.8 8.5 - 10.1 mg/dL Bilirubin, total 0.2 0.2 - 1.0 mg/dL ALT (SGPT) 12 (L) 13 - 61 U/L AST (SGOT) 21 15 - 37 U/L Alk. phosphatase 75 45 - 117 U/L Protein, total 6.3 (L) 6.4 - 8.2 g/dL Albumin 2.1 (L) 3.5 - 4.7 g/dL Globulin 4.2 1.7 - 4.7 g/dL A-G Ratio 0.5 (L) 0.7 - 2.8TROPONIN I Collection Time: 04/19/19 10:15 AMResult Value Ref Range Troponin-I, Qt. 0.05 0.00 - 0.05 NG/MLBLOOD GAS, ART ERIAL Collection Time: 04/19/19 10:45 AMResult Value Ref Range pH 7.42 7.35 - 7.45 PCO2 55 (H) 32 - 48 mmHg PO2 86 83 - 108 mmHg CO2, TOTAL 37 (H) 19 - 24 mmol/L BI CARBONATE 36 (H) 21 - 28 mmol/L O2 SAT 99 (H) 94 - 98 % BASE EXCESS 9.3 (H) 0 - 3 mmol /L SITE RIGHT RADIAL MIRANDA'S TEST POSITIVE DEVICE BIPAP FIO2 70.0 % MODE BIPAP PEEP /CPAP 5 PRESSURE SUPPORT 14 RATE 20 Performed by [id number] ACID Collection Time: 09/01 2:20 PMResult Value Ref Range Lactic acid 1.8 0.4 - 2.0 MMOL/LURINALYSIS W/ R FLX MICROSCOPIC Collection Time: 04/19/19 4:56 PMResult Value Ref Range Color YELL OW YEL Appearance CLEAR CLEAR Specific gravity 1.015 1.003 - 1.030 pH (UA) 7.0 4.6 - 8.0 Protein NEGATIVE NEG mg/dL Glucose NEGATIVE NEG mg/dL Ketone NEGATIVE NEG mg/dL Bilirubin NEGATIVE NEG Blood NEGATIVE NEG Urobilinogen 1.0 0.2 - 1.0 EU/dL Ni trites NEGATIVE NEG Leukocyte Esterase NEGATIVE NEGBLOOD GAS, ARTERIAL Collect ion Time: 04/19/19 4:59 PMResult Value Ref Range pH 7.30 (L) 7.35 - 7.45 PCO2 60 (H ) 32 - 48 mmHg PO2 134 (H) 83 - 108 mmHg CO2, TOTAL 31 (H) 19 - 24 mmol/L BICARBONATE 30 (H) 21 - 28 mmol/L O2 SAT 100 (H) 94 - 98 % BASE EXCESS 1.6 0 - 3 mmol/L SITE RIGH T RADIAL MIRANDA'S TEST POSITIVE DEVICE BIPAP FIO2 65.0 % MODE BIPAP PEEP/CPAP 5 PRESS URE SUPPORT 14 RATE 20 Performed by [id number]:Cultures:Lab ResultsCo mponent Value Date/Time Culture result: NO GROWTH 5 DAYS 03/25/2019 03:10 AM Cultur e result: NO GROWTH 5 DAYS 03/25/2019 02:55 AM Culture result: NO GROWTH 5 DAYS 02/14 04:14 AM Culture result: NO GROWTH 5 DAYS 03/11/2019 04:14 AMImaging:Xr Chest Sngl VResult Date: 02/12/2019CHEST one view HISTORY: Followup lung pathology. Compar garth is made to previousstudies. Accounting for differences in technique there has b een no significantchange of right basal infiltrate/effusion. There is a poor ins piratory effortand patient rotation towards the right. No other interval change is n oted.IMPRESSION: No significant change.Xr Chest Sngl VResult Date: 02/09/2019AP po rtable film of the chest clinical indication pneumonia Study is compared toprevious e xamination of February 08, 2019. Again noted is cardiac enlargement curtis limited insp iration. There has been partial clearing of right mid lungdensities. Again noted is an old fracture of the left clavicleIMPRESSION: Partial clearing rig ht lung densities otherwise little changeXr Abd (kub)Result Date: 04/05/2019XR ABD ( KUB) CLINICAL INDICATION PROVIDED:. "assess J tube position."TECHNIQUE.: An initial AP image of the abdomen was acquired. Additional APimages of the abdomen were acquired after the hand-injection of a small volumeof radiopaque contrast by the siri ent's nurse into the patient's J-tube.COMPARISON:. 04/02/2019. FINDINGS :. The tip of the 2 projects over the midabdomen, at the level of the mid jeju num. Post injection images demonstrateopacification of loops of mid small bowel. There is no extraluminal contrastappreciated. A large volume of s tool projects over the distal colon/rectum.Densities project over the lower lungs, right greater than left. Considercorrelation with chest radiograp hs.IMPRESSION:. Injected radiopaque contrast appears to be contained within thelumen of the mid small bowel. There is no evidence of extraluminal contrast.Additional find ings and recommendations as above.Xr Abd (kub)Result Date: 04/02/2019KUB 2 view(s ) History: Evaluate J-tube. Comparison: 11/22/2018. There is a newJ-tube overlyin g the mid abdomen with kinking involving its superior andinferior portion overlying t he mid abdomen. These findings were discussed withmale nurse Mora at 3:40 PM today.. Th ere is mild ileus of the small bowel butthere is no evidence of obstruction, radiopaqu e gallstones, or left kidneystones or an appendicolith. There are possible right kidney stones. Absence ofan appendicolith it does not exclude appendicitis. CT is sug gested if clinicallyindicated. Old rib fractures are noted.IMPRESSION: Kinking of J-tube in 2 locations. Possible right kidney stonesIleus.Ir Picc Insert Wo Por t Over 5 Years Wo ImgResult Date: 04/01/2019IR PICC INSERT WO PORT OVER 5 YEARS WO IMG CLINICAL INDICATION PROVIDED.:"midline." Medical necessity f or vascular access. PROCEDURE: After beinginformed of the risks, benefits, po tential alternatives to the procedure theinformed consent was obtained. The pa tient was placed on the table the supineposition. The right upper extremit y was prepped and draped in the normal sterilefashion. Ultrasound interrogation was performed of the right upper extremity.Images were obtained. A locat ion was chosen over the right brachial vein abovethe antecubital fossa. Lidocaine so lution was used to anesthetize the scan.Access was gained under ultrasound guidance using a 21-gauge thin-walled needle.A 0.018 a wire was advanced under fluoroscopic guidance into the right axillaryvein. The needle was exchanged o lani a wire for the midline dilator and sheath.The dilator and wire were removed leaving the sheath in situ. Through the sheatha 5 Congolese double-lumen 20 cm midl ine catheter was placed. The peel-away sheathwas removed. The catheter was sewn into position using 2-0 silk sutures. Thepatient tolerated the procedure. Ther e were no complications at the time of theprocedure. FINDINGS: Ultrasound inter rogation revealed a widely patent brachialvein above the antecubital fossa . A 5 Congolese dual-lumen 20 cm midline catheterwas placed. The tip was placed i n good position over the right axillary vein.IMPRESSION: 5 Congolese dual-lumen mid line catheter placed with tip positioned overthe right axillary vein.Ct Chest Wo ContResult Date: 03/14/2019History: Respiratory difficulty. FINDINGS: CT sca nning of the chest wasperformed helically from lung apices to the upper abdomen wi thout intravenouscontrast dural. Sagittal and coronal reconstructed images are submitt ed.Scanning was performed utilizing dose lowering techniques and is compared to t leeannr study of 01/15/2019. Evaluation of thoracic vascular structures is limitedw ithout intravenous contrast material. There is, however, no definite CTevidence of d issection or focal aneurysmal dilatation. Some peripheralcalcification is noted. T here is no evidence of any pathologically enlargedlymph node within the visualized portions of the mediastinum or axillae. Somenonpathologically enlarged lymph nod es are seen. Again noted is elevation of theleft hemidiaphragm. A left small pleu ral effusion is noted as well asatelectatic change at the left lung base. Patchy opa city at the right lung baseis compatible with a right basilar infiltrate. There is tamie e patchy opacitywithin the right middle lobe as well. The right basal infiltrate is g reater insize than that seen previously. The pleural effusion is smaller. The rightmi ddle lobe infiltrate is similar. Limited evaluation of upper abdominalstructures reveals a tube within the stomach directed toward the duodenum.Diffuse hypertrophic degenerative changes are noted of the thoracic spine. Thereis again noted to b e shift of mediastinal structures to the right.IMPRESSION: Worsening right lower lobe infiltrate. Slight worsening of the rightmiddle lobe infiltrate. Improved le ft lung.Xr Chest PortResult Date: 04/19/2019History: Respiratory difficulty. FINDINGS: A frontal portable view of the chestis submitted for interpretation and is compared to the prior study of04/06/2019. EKG leads overlie the chest. A right-nyasia ed midline catheter is notedin situ. The cardiac silhouette measures at the upper limits of normal. There ispatchy opacity noted at the lung bases, left greater th an right, which may beinfiltrative or atelectatic in nature. A small left pleu ral effusion is noted.Mediastinal and hilar structures are unremarkable.IMPRESSION: Basilar infiltrative change left greater than right. Small leftpleural effusion.Xr Nelda st PortResult Date: 04/06/2019CHEST one view HISTORY: Pneumonia. COMPARISON: 03/25/20 19. There is a poorinspiratory effort which compromises this interpretation. A repea t study issuggested. There is discoid atelectasis and/or subsegmental left low er lobeatelectasis along the left hemidiaphragm. .There is no gross eviden ce ofcongestion, effusions or pneumothorax.IMPRESSION: Possible left l ower lobe atelectasis. Poor inspiratory effort.Xr Chest PortResult Date: 019CHEST one view HISTORY: Fever. Reflux. Gastrostomy. COMPARISON: 03/11/2019.Ther e is a poor inspiratory effort which compromises this interpretation. Arepeat study is suggested. There is discoid atelectasis and/or left lower lobeinfilt rate.There is no gross evidence of congestion, other infiltrates,effusions or pneumothorax.IMPRESSION: Possible left lower lobe infiltrate. Poor inspiratory effort.Xr Chest PortResult Date: 03/11/2019CHEST one view HISTORY: Fever. COPD. Reflux. COMPARISON: 02/12/2019. Anadditional view was obtained. A tubula r structure overlies the stomach andmidabdomen with some gastric distenti on and elevation of the left hemidiaphragm.There is a poor inspirator y effort which compromises this interpretation. Arepeat study is suggest ed. .There is no gross evidence of congestion,infiltrates, effusions or pne umothorax. Old rib fractures are noted.IMPRESSION: No evidence of acute c ardiopulmonary disease. Poor inspiratoryeffort. Gastric distention.Xr Chest PortResult Date: 02/08/2019XR CHEST PORT Clinical data: Sepsis Priors: 2018. Findings: The heart sizeis unchanged. Limited inspiration with right basilar l eunice opacities which canbe due to pneumonia. Slightly elevated left hemidiaphragm wit h left basilaratelectasis. No evidence of CHF or large pleural effusion. Patient' s downwardpointing chain obscures the right lung apex. There is an old healed leftc lavicle fracture.IMPRESSION: Right lower lobe parenchymal opacities which can be due t opneumonia. Left basilar atelectatic changes in the juxtadiaphragmatic location.Limit ed inspiration compromises evaluation.Xr Chest PortResult Date: 01/21/2019[place] [facility] Physician: MONICA GOMEZ Patient Name: EVELIO CARLIN THIS IS AFINAL REPORT FROM [facility] DATE OF SERVICE: 2019-01-21 22:23:43 IMAGES: 1EXAM: XY CH EST PORTABLE HISTORY: Rule out sepsis COMPARISON: Chest x-ray 01/17/19FINDINGS: The patient is rotated and obliquely positioned There is no airspaceconsolida tion. No pneumothorax. Persistent small bilateral pleural effusions Thecardiac s ilhouette appears grossly stable. Limited assessment secondary topositioning and p artially obscured heart borders The bones are demineralized.Limited visualization of t he thoracic spineIMPRESSION: Persistent small bilateral pleural effusions No radiograp hicevidence of acute airspace process THIS DOCUMENT HAS BEEN ELECTRONICALLY SIGNEDJ cecelia Cole MD 01/21/2019 22:46 EST [email or web address] Please call Imaging On [phone] ([phone]) with questions. This report was electronically signedby: Noel Cole MD 01/21/2019 10:48 PMDuplex Upper Ext Venous LeftResult Date: 2018LEFT UPPER EXTREMITY DOPPLER History: DVT. High-resolution linear sonography o fthe left upper extremity was performed using Color Doppler Flow and DuplexDoppler Spe ctral sonography. There is no evidence of a deep vein thrombosis. Thecephalic vein c ould not be visualized. The left internal jugular, subclavian,axillary, brachial a nd basilic veins are patent and completely compressible.Spontaneous and phasic flow is noted.IMPRESSION: No evidence of deep vein thrombosis.Duplex Lower Ext Venous BilatResult Date: 02/10/2019RIGHT and LEFT LOWER EXTREMITY VENOUS DOPPLER STUDIES: Right and Left lowerextremity venous spectral Doppler studies are performed using Berthoud r Doppler Flowand enhanced Duplex Spectral technique. History: Pain and swelling. T here is noevidence of deep venous thrombosis present. There is normal compressibilit y,augmentation and phasicity from common femoral vein through popliteal vein. .Th e anterior tibial and peroneal veins are not visualized. The posterior tibialveins of the calf are patent.IMPRESSION: No evidence of lower extremity deep venous thrombosi s bilaterally.Limited calf evaluation.Impression: Aspiration pneum onia. Acute COPD exacerbation. Acute respiratory failure. Dysphagia R/o sep sis.Plan: IV zosyn Follow culturesSigned By: Natasha Dudley MD April 19, 2019 7:43 PM Name Value Range Interpretation Code Description Data Harriett rce(s) Supporting Document(s ) ID Date Data Source [id number] 04/19/2019 06:47:30 PM EST [facility] Dr. Hills in to evaluate the patient at this time. Name Value Range Interpretation Code Description Data Harriett rce(s) Supporting Document(s ) ID Date Data Source [id number] 04/19/2019 05:00:16 PM EST [facility] - [facility] Name Value Range Interpretation Description Data Sup porting Code Source(s) Document(s ) pH of Arterial 7.30 7.35-7.4 Below low normal [facility] - Good blood 5 [facility] Carbon dioxide 60 mmHg 32-48 Above high normal [facility] - Good [Partial Taoist pressure] in Hospital Arterial blood Oxygen 134 mmHg 83-108 Above high normal [facility] - Good [Partial Taoist pressure] in Hospital Arterial blood Carbon 31 19-24 Above high normal [facility] - Good dioxide, total mmol/L Taoist [Moles/volume] Hospital in Arterial blood Bicarbonate 30 21-28 Above high normal [facility] - Go od [Moles/volume] mmol/L Taoist in Arterial Hospital blood Oxygen 100 % 94-98 Above high normal [facility] - Good saturation in [facility] Base excess in 1.6 0-3 [facility] - Good Arterial blood mmol/L Taoist by calculation Hospital Body site [facility] - Good [facility] Arterial [facility] - Good patency Wrist Taoist artery --pre Hospital arterial puncture Oxygen gas [facility] - Good flow Oxygen Taoist delivery [facility] system Oxygen/Inspire 65.0 % [facility] - Good d gas [facility] Respiratory Hospital system --on ventilator Ventilation [facility] - Good mode Taoist [Identifier] [facility] Ventilator PEEP 5 [facility] - Good Respiratory Taoist system Hospital Pressure 14 [facility] - Good support [facility] Hospital Ventilator Respiratory 20 [facility] - Good rate [facility] [id number] [facility] - Good comment [facility] ID Date Data Source [id number] 04/19/2019 05:51:37 PM EST [facility] Name Value Range Interpretation Description Data Sup porting Code Source(s) Document(s ) Color of Urine YEL [facility] Appearance of CLEAR [facility] - Urine [facility] Specific gravity 1.015 1.003-1. [facility] - of Urine by 030 Good Refractometry [facility] pH of Urine by 7.0 4.6-8.0 [facility] - Test strip [facility] Protein NEG [facility] - [Mass/volume] in Good Urine by Test [facility] Glucose NEG [facility] - [Mass/volume] in Good Urine by Taoist Automated test [facility] strip Ketones NEG [facility] - [Presence] in Good Urine by [facility] test [facility] strip Bilirubin.total NEG [facility] - [Presence] in Good Urine [facility] Hemoglobin NEG [facility] - [Presence] in Good Urine by [facility] Urobilinogen 1.0 0.2-1.0 [facility] - [Presence] in EU/dL Good Urine by Taoist Automated test Hospital strip Nitrite NEG [facility] - [Presence] in Good Urine by Taoist Automated test [facility] strip Leukocyte NEG [facility] - esterase Good [Presence] in Taoist Urine by Hospital Automated test strip ID Date Data Source [id number] 04/19/2019 03:09:57 PM EST [facility] - [facility] PULMONARY/ CCM- Consult [facility]Krystian Monae MD., F.C.C.P.Stella Hamilton MD., F.C.C.P. 9W 1 [facility] [address] [place] [id number] [place] [address] Patient: Evelio Carlin Sex: male DOA: 04/19/2019Date of : 1950 Age: 68 y.o. LOS: LOS: 0 daysP CP: Mili Hills, RAFAubjective:CHIEF COMPLAINT:PATIENT TRANSFERRED [facility] FOR ACUTE RES. FAILURE AND MENTAL CHANGES .HISTORY OF PRESENT ILLNESS:Evelio is a 68 y.o. male whom presents with complaint noted above.WHO IS OBTUNDED HAVE CEREBRAL PALSY , BEDRIDDEN TODAY TARSFERRED WITH FECERAND MENTAL CHANGE S .PATIENT IS FAMILIAR TO ME FROM PAST ADMISSIONS . HX DYSPHAGIA , COPD,SEIZ URES , CEREBRAL PALSY .MENTQAL RETARDATION ,PARKINSONISM SCHIZOPHRENIA , ABG ON BI PAP PH 7.42, PCO2 =55 , PO2 86 , HCO3 =37 , LOX234 %CHEST XRAY - ATELECTASIS L L L , COPD , KYPHOSCOLIOSIS . 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 No pertinent family history.No Known AllergiesPrior to Admission medicationsMedication Sig Start Date End Date Taking? Authorizing ProviderlamoTRIgine (LAMICTAL) 25 mg rapid dissolve tablet T RADHAMES 2 TABLETS BY MOUTH EVERY12 HOURS 03/18/19 Provider, Ediezinc oxide 20 % oin tment Apply to affected area as needed for Skin Irritation.Provider, Kalyan razole (PRILOSEC) 2 mg/mL susp 2 mg/mL oral suspension (compounded) Take 20mL by sarah daily. 04/06/19 Christos Lopez MDheparin sodium,porcine (HEPARIN, PORCI NE,) 5,000 unit/mL injection 1 mL bySubCUTAneous route every twelve (12) h ours every twelve (12) hours. 03/17/19Mili Hills DOmultivitamin (MULTI-DELYN, WE LLESSE) liqd 5 mL by Per G Tube route daily.03/17/19 Mili Hills DOacetdevang minophen (TYLENOL) 32MG/ML soln solution Take 20.3 mL by mouth every four(4) hours as needed for Pain or Fever. 03/17/19 Mili Hills DOacetylcysteine (MUCOMYST) 100 mg/mL (10 %) nebulizer solution Take 4 mL byinhalation two (2) times a day. Pro vider, Historicalclorazepate (TRANXENE) 3.75 mg tablet 1 Tab by Per G Tube route margo hernandez. MaxDaily Amount: 3.75 mg. 12/30/18 Mili Hills DOcinacalcet (SENSIPAR) 30 mg tablet Take 2 Tabs by mouth daily.Patient taking differently: 30 mg daily. Via G tube 12/30/18 Mili Hills DOalbuterol-ipratropium (DUO-NEB ) 2.5 mg-0.5 mg/3 ml nebu 3 mL by Nebulizationroute every six (6) hours. E very 6 hours while awakePatient taking differently: 3 mL by Nebulization route every four (4) hours asneeded. Every 6 hours while awake 12/30/18 Mili Hills D Obudesonide (PULMICORT) 0.5 mg/2 mL nbsp 2 mL by Nebulization route two (2) timesa day . 12/30/18 Mili Hills DOREVIEW OF SYSTEMS: PATIENT OBTUNDED UNABLE TO DO ROS.General: negative for fever, chills, sweats, weaknessEyes: negative for blurr ed vision, eye pain, loss of vision, diplopiaEar Nose and Throat: negative fo r rhinorrhea, pharyngitis, otalgia, tinnitus,speech or swallowing difficulti esRespiratory: negative for cough, sputum production, SOB, wheezing, DAVALOS,pleuritic painCardiology: negative for chest pain, palpitations, orthopnea, PND, edema,sync opeGastrointestinal: negative for abdominal pain, N/V, dysphagia, change in bowelhab its, bleedingGenitourinary: negative for frequency, urgency, dysuria, hematuria, incontinenceMuskuloskeletal : negative for arthralgia, myalgiaHematology: negative for easy bruising, bleeding, lymphadenopathyDermatological: negative for rash, ulceration, mole change, new lesionEndocrine: negative for hot flashe s or polydipsiaNeurological: negative for headache, dizziness, confusion, focal we akness,paresthesia, memory loss, gait disturbancePsychological: negative for a nxiety, depression, agitationObjective:VITALS:Patient Vitals for the past 24 hrs: BP Temp Pulse Resp SpO2 Height Wvintu12/05/20 1400 95/63 - 62 26 100 % - -04/19/19 1245 102/58 - - 16 100 % - -04/19/19 1215 110/52 - 75 25 99 % - - 1130 109/66 - 76 20 100 % - -04/19/19 1037 91/46 - 80 (!) 32 98 % - -04/19/19 1016 - - - - 95 % - -04/19/19 0959 (!) 85/68 98.2 F (36.8 C) 91 28 95 % 5' 2" (1.57 5 m) 46.7 kg(103 lb)Pulse OX:SpO2 Readings from Last 6 Encounters:04/19/19 100% 06/04 100%04/06/19 99%03/17/19 92%02/19/19 96%02/18/19 92%@LASTSAO2(6)@Physical Exa m:UNRESPONSIVE ON BIPAP , SPO2 97 % , CONTRACTED PT. WARM YOTOUCH Gene ral: , cooperative, MODERATE , RESPIRATORY distress, appearsstated age . Head: Normocephalic, without obvious abnormality, atraumatic. Eyes: Conjunctivae/corneas clear. PERRL, EOMs intact. Nose: N dada normal. No drainage or sinus tenderness Throat: Lips, mucosa, and tongu e normal Neck: Supple, symmetrical, trachea midline, no adenopa thy,thyroid: no enlargement/tenderness/nodules, no carot id bruit and no JVD. Lungs: BREATH SOUNDS DECREASED L L L WITH DULLNES S , WHEEZING+2 ALL OVER , RALE MORE MARKED L L L to auscultation bilater ally. Chest Wall: No tenderness or deformity. Heart: Regular r ate and rhythm, S1, S2 normal, ES GR 1/ 2murmur, click, rub or NO gallop. A bdomen: Soft, non-tender. Bowel sounds normal. No masses, No organomegaly. Ex tremities: Extremities normal, atraumatic, no cyanosis or +1 edema. Pulse s: 4+ bilaterally Skin: Skin color, texture, turgor normal. No rashes or lesions. Neurologic: CNII-XII intact. No focal motor or sensory deficit.Curren t Facility-Administered MedicationsMedication Dose Route Frequency sodium chloride (N S) flush 5-10 mL 5-10 mL IntraVENous PRN acetaminophen (TYLENOL) suppository 650 mg 650 mg Rectal NOW vancomycin (VANCOCIN) 1,000 mg in 0.9% sodium chloride 250 mL IVPB 1,000 mgIntraVENous NOW albuterol-ipratropium (DUO-NEB) 2.5 MG-0 .5 MG/3 ML 3 mL Nebulization Q4H RT budesonide (PULMICORT) 500 mcg/2 ml nebu lizer suspension 500 mcg NebulizationBID RTCurrent Outpatient MedicationsMedicati on Sig Dispense lamoTRIgine (LAMICTAL) 25 mg rapid dissolve tablet TAKE 2 TABLETS BY MOUTHEVERY 12 HOURS zinc oxide 20 % ointment Apply to affected area as needed for Sk inIrritation. omeprazole (PRILOSEC) 2 mg/mL susp 2 mg/mL oral suspension (compounded ) Take20 mL by mouth daily. 20 mL heparin sodium,porcine (HEPARIN, PORCINE,) 5,000 unit/mL injection 1 mL bySubCUTAneous route every twelve (12) hours every twelve (12 ) hours. 10 mL multivitamin (MULTI-DELYN, WELLESSE) liqd 5 mL by Per G Tube route daily. 1Bottle acetaminophen (TYLENOL) 32MG/ML soln solution Take 20.3 mL by mo uth every four(4) hours as needed for Pain or Fever. 500 mL acetylcysteine (MUCOMYST) 100 mg/mL (10 %) nebulizer solution Take 4 mL byinhalation two (2) times a day. cl orazepate (TRANXENE) 3.75 mg tablet 1 Tab by Per G Tube route nightly. MaxDaily Amoun t: 3.75 mg. 30 Tab cinacalcet (SENSIPAR) 30 mg tablet Take 2 Tabs by mouth daily. (P atient takingdifferently: 30 mg daily. Via G tube) 60 Tab albuterol-ipratropium (DUO -NEB) 2.5 mg-0.5 mg/3 ml nebu 3 mL by Nebulizationroute every six (6) hours. E very 6 hours while awake (Patient takingdifferently: 3 mL by Nebulization route every four (4) hours as needed. Every 6hours while awake) 30 Nebule budesonid e (PULMICORT) 0.5 mg/2 mL nbsp 2 mL by Nebulization route two (2)times a day. 6 0 EachIntake and Output:Last three shifts: No intake/output data recorded.Lab Resul ts:Recent Results (from the past 24 hour(s))EKG, 12 LEAD, INITIAL Collection Time: 04/19/19 9:58 AMResult Value Ref Range Ventricular Rate 92 BPM Atrial Rat e 93 BPM P-R Interval 110 ms QRS Duration 95 ms Q-T Interval 343 ms QTC Calculation ( Bezet) 424 ms Calculated P [place] 44 degrees Calculated R [place] 26 degrees Calculated T [place] -44 degrees Diagnosis Sinus rhythmBorderline short TN intervalLVH wi th secondary repolarization abnormalityProbable anterior infarct, ag e indeterminateAbnormal T, consider ischemia, inferior leadsLACTIC ACID Collection Patria e: 04/19/19 10:15 AMResult Value Ref Range Lactic acid 2.6 (HH) 0.4 - 2.0 MMOL/LCBC WITH AUTOMATED DIFF Collection Time: 04/19/19 10:15 AMResult Value Ref Range WBC 8.1 4.8 - 10.6 K/uL RBC 3.78 (L) 4.70 - 6.00 M/uL HGB 11.8 (L) 14.0 - 18.0 g/dL HCT 36.7 (L) 42.0 - 52.0 % MCV 97.1 (H) 81.0 - 94.0 FL MCH 31.2 27.0 - 35.0 PG MCHC 3 2.2 30.7 - 37.3 g/dL RDW 16.6 (H) 11.5 - 14.0 % PLATELET 247 130 - 400 K/uL MPV 9.4 9. 2 - 11.8 FL NRBC 0.0 0 PER 100 WBC ABSOLUTE NRBC 0.00 0.0 - 0.01 K/uL NEUTROPHILS 78 (H) 48.0 - 72.0 % LYMPHOCYTES 9 (L) 18.0 - 40.0 % MONOCYTES 12 2.0 - 12.0 % EOSINOP HILS 0 0.0 - 7.0 % BASOPHILS 0 0.0 - 3.0 % IMMATURE GRANULOCYTES 1 (H) 0 - 0.5 % AB S. NEUTROPHILS 6.4 2.3 - 7.6 K/UL ABS. LYMPHOCYTES 0.7 (L) 0.9 - 4.2 K/UL ABS. MONOCYTES 1.0 0.1 - 1.7 K/UL ABS. EOSINOPHILS 0.0 0.0 - 1.0 K/UL ABS. BASOPHILS 0.0 0. 0 - 0.4 K/UL ABS. IMM. GRANS. 0.1 0.0 - 0.17 K/UL DF AUTOMATEDMETABOLIC PANEL, [facility] Collection Time: 04/19/19 10:15 AMResult Value Ref Range Sodium 134 (L) 136 - 145 mmol/L Potassium 3.7 3.5 - 5.1 mmol/L Chloride 92 (L) 98 - 107 mmol/L C O2 37 (H) 21 - 32 mmol/L Anion gap 9 (L) 10 - 20 mmol/L Glucose 118 (H) 74 - 106 mg/dL BUN 16 7 - 18 mg/dL Creatinine 0.69 (L) 0.70 - 1.30 mg/dL GFR est AA >60 >60 ml/min/1 .73m2 GFR est non-AA >60 >60 ml/min/1.73m2 Calcium 9.8 8.5 - 10.1 mg/dL Bilirubin, total 0.2 0.2 - 1.0 mg/dL ALT (SGPT) 12 (L) 13 - 61 U/L AST (SGOT) 21 15 - 37 U/L Al k. phosphatase 75 45 - 117 U/L Protein, total 6.3 (L) 6.4 - 8.2 g/dL Albumin 2.1 (L) 3 .5 - 4.7 g/dL Globulin 4.2 1.7 - 4.7 g/dL A-G Ratio 0.5 (L) 0.7 - 2.8TROPONIN I Collec tion Time: 04/19/19 10:15 AMResult Value Ref Range Troponin-I, Qt. 0.05 0.00 - 0.05 N G/MLBLOOD GAS, ARTERIAL Collection Time: 04/19/19 10:45 AMResult Value Ref Range pH 7.42 7.35 - 7.45 PCO2 55 (H) 32 - 48 mmHg PO2 86 83 - 108 mmHg CO2, TOTAL 37 (H) 1 9 - 24 mmol/L BICARBONATE 36 (H) 21 - 28 mmol/L O2 SAT 99 (H) 94 - 98 % BASE EXCE SS 9.3 (H) 0 - 3 mmol/L SITE RIGHT RADIAL MIRANDA'S TEST POSITIVE DEVICE BIPAP FIO2 70.0 % MODE BIPAP PEEP/CPAP 5 PRESSURE SUPPORT 14 RATE 20 Performed by [id number] :Recent Labs 04/19/200945PH 7.42PCO2 55*PO2 86HCO3 36*FIO2 70.0Recent Glucose Result s:Lab ResultsComponent Value Date/Time GLU 118 (H) 04/19/2019 10:15 AMCULTURES:All Micro Results Procedure Component Value Units Date/Time CULTURE, BLOOD [[id number]] Col lected: 04/19/19 1005 Order Status: Completed Specimen: Blood Updated: 09/01 1049 CULTURE, BLOOD [[id number]] Collected: 04/19/19 1015 Order Status: Completed Specimen: Blood Updated: 04/19/19 1049Images:@[email or web address]@CT Res ults (most recent):Results from Hospital Encounter encounter on 03/11/19CT CHEST WO CONT Narrative History:Respiratory difficulty.FINDINGS:CT scanning of the c hest was performed helically from lung apices to the upperabdomen without intravenous contrast dural. Sagittal and coronal reconstructedimages are submitted. Scann ing was performed utilizing dose lowering techniquesand is compared to the prior s tudy of 01/15/2019.Evaluation of thoracic vascular structures is limited without i ntravenouscontrast material. There is, however, no definite CT evidence of diss ection orfocal aneurysmal dilatation. Some peripheral calcification is noted. There is noevidence of any pathologically enlarged lymph node within the visualizedportions of the mediastinum or axillae. Some nonpathologically enlarged lymphnodes ar e seen.Again noted is elevation of the left hemidiaphragm. A left small pleuraleffus ion is noted as well as atelectatic change at the left lung base.Patchy opacity at the right lung base is compatible with a right basilarinfiltrate. There is some patchy opacity within the right middle lobe as well.The right basal infiltrate is great er in size than that seen previously. Thepleural effusion is smaller. The righ t middle lobe infiltrate is similar.Limited evaluation of upper abdominal structures reveals a tube within thestomach directed toward the duodenum.Diffuse hypertrophic degenerative changes are noted of the thoracic spine.There is again noted to b e shift of mediastinal structures to the right. Impression IMPRESSION:Worsening r ight lower lobe infiltrate. Slight worsening of the right middle lobeinfiltrate. 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 ACUTE HYPERCAPNIC AND HYPOXIC RESPIRA TORY FAILURE2. ATELECTASIS L L L3. SEVERE COPD4. MENTAL RETARDATION5. PNEUMONIA6. SEPSIS L A = 2.57. METABOLIC ENCEPHALOPATHY8. HX P. EPlan:1. BIPAP SUPPORT IPAP = 14 CM , EPAP= 7 CM ,RATE = 20 . MT FIO2 = 70 %2. DUO NEB Q 4 H3. MUCOMYST 10 % VIA MINI NEB Q 8 H4. IV ZOSYN AND VANCOMYCIN5. I V FLUIDSCode S tatus: CODEThe patient has elected KIRSTIN RODNEY SISTER to be the surrogate de cisionmakerDVT Prophylaxis: LOVENOXGI Prophylaxis: PROTONIXBaseline:ASP. PNEUM ONIA WITH AC RESP FAILURETOTAL TIME: 75 Comments>50% of visit spent in counselin g and coordination of careCritical Care Provided 75 Minutes non procedure based Nih jose Monae MD F.C.C.P. Name Value Range Interpretation Code Description Data Harriett rce(s) Supporting Document(s ) ID Date Data Source [id number] 04/19/2019 02:32:16 PM [facility] - [facility] Attestation signed by Faisal Marinelli MD at 04/19/19 14 32I was personally available for consultation in the Emergency Department. I havereviewed the chart and agree with the documentation recorded by the midlevelprovider, including the asse ssment, treatment plan, and disposition. HPI68 yo male with history of schizophre freddy, mental retardation, dysphagia withPEG, COPD is brought to the ED via EMS from [facility] for evaluation ofrespiratory distress. It is not clear when symptoms began. 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 No pertinent fam pierre history.Social HistorySocioeconomic History Marital status: SINGLE Spouse name: Not on file Number of children: Not on file Years of education: Not on file Highest educatio n level: Not on fileOccupational History Not on fileSocial Needs Financial resource str ain: Not on file Food insecurity: Worry: Not on file Inability: Not on file Transporta tion needs: Medical: Not on file Non- medical: Not on fileTobacco Use Smoking status: Princee r Smoker Smokeless tobacco: Never UsedSubstance and Sexual Activity Alcohol use: No Drug u se: No Sexual activity: Not on fileLifestyle Physical activity: Days per week: Not o n file Minutes per session: Not on file Stress: Not on fileRelationships Social connect ions: Talks on phone: Not on file Gets together: Not on file Attends quaker service: Not on file Active member of club or organization: Not on file Attends meetings of clubs o r organizations: Not on file Relationship status: Not on file Intimate partner violence: Fear of current or ex partner: Not on file Emotionally abused: Not on file Physica lly abused: Not on file Forced sexual activity: Not on fileOther Topics Concern Se rvice Not Asked Blood Transfusions Not Asked Caffeine Concern Not Asked Occupational Exposure Not Asked Hobby Hazards Not Asked Sleep Concern Not Asked Stress Concern Not As ked Weight Concern Not Asked Special Diet Not Asked Back Care Not Asked Exercise Not Asked Bike Helmet Not Asked Seat Belt Not Asked Self-Exams Not AskedSocial History Narra tive Not on fileALLERGIES: Patient has no known allergies.Review of SystemsUnable to per form ROS: Patient nonverbalVitals: 04/19/19 0959 04/19/19 1016 04/19/19 1037BP: (!) 85/68 91/46Pulse: 91 80Resp: 28 (!) 32Temp: 98.2 F (36.8 C)SpO2: 95% 95% 98%Weight: 46.7 k g (103 lb)Height: 5' 2" (1.575 m)Physical ExamVitals signs and nursing note reviewed.Constitu tional: General: He is not in acute distress. Appearance: He is well-developed. He is cachectic. He is ill-appearing andtoxic-appearing.HENT: Head: Normoce phalic and atraumatic.Eyes: General: No scleral icterus.Neck: Musculoskeletal: Neck lemus pple.Cardiovascular: Rate and Rhythm: Normal rate and regular rhythm. Pulses: Normal pul ses.Pulmonary: Effort: Respiratory distress present. Comments: Decreased breath so unds+ tachypneaAbdominal: General: Bowel sounds are normal. There is no distension. He rnia: A hernia is present. Comments: PEGMusculoskeletal: Comments: Contract ed extremitiesSkin: General: Skin is warm and dry. Capillary Refill: Capillary refill cecilio es 2 to 3 seconds. Coloration: Skin is pale.Neurological: Mental Status: Ment al status is at baseline. He is lethargic.MDMNumber of Diagnoses or Management OptionsAcute exacerbation of chronic obstructive pulmonary disease (COPD) (HCC):Acute hypoxemic res piratory failure (HCC):Pneumonia of both lower lobes due to infectious organism (HCC):Amount and/or Complexity of Data ReviewedClinical lab tests: ordered and reviewedTests in the radiology section of CPT : ordered and reviewedDecide to obtain previous medica l records or to obtain history from someoneother than the patient: yesObtain history from someone other than the patient: yesReview and summarize past medical records: yesDiscu ss the patient with other providers: yesIndependent visualization of images, tracings, or sp ecimens: yesRisk of Complications, Morbidity, and/or MortalityPresenting problems: moderateDi agnostic procedures: moderateManagement options: moderateCritical CareTotal time providin g critical care: 30-74 minutesPatient ProgressPatient progress: other (comment ) (Guarded )ProceduresINeeta, reviewed the patient's past history, allergies and ho memedications as documented in the nursing chart.I have reviewed the following home medicat ions:Prior to Admission medicationsMedication Sig Start Date End Date Taking? Authorizing ProviderlamoTRIgine (LAMICTAL) 25 mg rapid dissolve tablet TAKE 2 TABLETS BY MOUTH EVERY12 H OURS 03/18/19 Provider, Historicalzinc oxide 20 % ointment Apply to affected area as need ed for Skin Irritation.Provider, Historicalomeprazole (PRILOSEC) 2 mg/mL susp 2 mg/mL oral suspension (compounded) Take 20mL by mouth daily. 04/06/19 Me John ir, heparin sodium,porcine (HEPARIN, PORCINE,) 5,000 unit/mL injection 1 mL bySubCUTAne ous route every twelve (12) hours every twelve (12) hours. 03/17/19Mili Hills DOmultivi tamin (MULTI-DELYN, WELLESSE) liqd 5 mL by Per G Tube route daily.03/17/19 Shaylee Hills DOacetaminophen (TYLENOL) 32MG/ML soln solution Take 20.3 mL by mouth every four(4) hour s as needed for Pain or Fever. 03/17/19 Mili Hills DOacetylcysteine (MUCOMYST) 100 mg/mL (10 %) nebulizer solution Take 4 mL byinhalation two (2) times a day. Pro vider, Historicalclorazepate (TRANXENE) 3.75 mg tablet 1 Tab by Per G Tube route nightly . MaxDaily Amount: 3.75 mg. 12/30/18 Mili Hills DOcinacalcet (SENSIPAR) 30 mg t ablet Take 2 Tabs by mouth daily.Patient taking differently: 30 mg daily. Via G tube 12/14 10/31 Reinier, Mili,DOalbuterol-ipratropium (DUO-NEB) 2.5 mg-0.5 mg/3 ml nebu 3 mL b y Nebulizationroute every six (6) hours. Every 6 hours while awakePatient taking differen tly: 3 mL by Nebulization route every four (4) hours asneeded. Every 6 hours while awake 12/30 Mili Hills DObudesonide (PULMICORT) 0.5 mg/2 mL nbsp 2 mL by Nebulization route two (2) timesa day. 12/30/18 Mili Hills, DOLabs:Recent Results (from the past 96 hour(s))EKG, 12 LEAD, INITIAL Collection Time: 04/19/19 9:58 AMResult Value Ref Range Ventricular Rate 92 BPM Atrial Rate 93 BPM P-R Interval 110 ms QRS Duration 95 ms Q-T I nterval 343 ms QTC Calculation (Bezet) 424 ms Calculated P [place] 44 degrees Calculated R [place] 26 degrees Calculated T Cambridge -44 degrees Diagnosis Sinus rhythmBorderline short TN intervalLVH with secondary repolarization abnormalityProbable anterior infarct, ag e indeterminateAbnormal T, consider ischemia, inferior leadsLACTIC ACID Collection Patria e: 04/19/19 10:15 AMResult Value Ref Range Lactic acid 2.6 (HH) 0.4 - 2.0 MMOL/LCBC WITH A UTOMATED DIFF Collection Time: 04/19/19 10:15 AMResult Value Ref Range WBC 8.1 4.8 - 1 0.6 K/uL RBC 3.78 (L) 4.70 - 6.00 M/uL HGB 11.8 (L) 14.0 - 18.0 g/dL HCT 36.7 (L) 42.0 - 52. 0 % MCV 97.1 (H) 81.0 - 94.0 FL MCH 31.2 27.0 - 35.0 PG MCHC 32.2 30.7 - 37.3 g/dL RDW 16.6 ( H) 11.5 - 14.0 % PLATELET 247 130 - 400 K/uL MPV 9.4 9.2 - 11.8 FL NRBC 0.0 0 PER 100 WBC ABS OLUTE NRBC 0.00 0.0 - 0.01 K/uL NEUTROPHILS 78 (H) 48.0 - 72.0 % LYMPHOCYTES 9 (L) 18.0 - 4 0.0 % MONOCYTES 12 2.0 - 12.0 % EOSINOPHILS 0 0.0 - 7.0 % BASOPHILS 0 0.0 - 3.0 % IMMATURE G RANULOCYTES 1 (H) 0 - 0.5 % ABS. NEUTROPHILS 6.4 2.3 - 7.6 K/UL ABS. LYMPHOCYTES 0.7 (L) 0.9 - 4.2 K/UL ABS. MONOCYTES 1.0 0.1 - 1.7 K/UL ABS. EOSINOPHILS 0.0 0.0 - 1.0 K/UL ABS. BASO PHILS 0.0 0.0 - 0.4 K/UL ABS. IMM. GRANS. 0.1 0.0 - 0.17 K/UL DF AUTOMATEDMETABOLIC PANEL, C OMPREHENSIVE Collection Time: 04/19/19 10:15 AMResult Value Ref Range Sodium 134 (L) 136 - 145 mmol/L Potassium 3.7 3.5 - 5.1 mmol/L Chloride 92 (L) 98 - 107 mmol/L CO2 37 ( H) 21 - 32 mmol/L Anion gap 9 (L) 10 - 20 mmol/L Glucose 118 (H) 74 - 106 mg/dL BUN 16 7 - 18 mg/dL Creatinine 0.69 (L) 0.70 - 1.30 mg/dL GFR est AA >60 >60 ml/min/1.73m2 GFR est non -AA >60 >60 ml/min/1.73m2 Calcium 9.8 8.5 - 10.1 mg/dL Bilirubin, total 0.2 0.2 - 1.0 mg/ dL ALT (SGPT) 12 (L) 13 - 61 U/L AST (SGOT) 21 15 - 37 U/L Alk. phosphatase 75 45 - 117 U/L Protein, total 6.3 (L) 6.4 - 8.2 g/dL Albumin 2.1 (L) 3.5 - 4.7 g/dL Globulin 4.2 1.7 - 4. 7 g/dL A-G Ratio 0.5 (L) 0.7 - 2.8TROPONIN I Collection Time: 04/19/19 10:15 AMResult Value Ref Range Troponin-I, Qt. 0.05 0.00 - 0.05 NG/MLBLOOD GAS, ARTERIAL Collection Time : 04/19/19 10:45 AMResult Value Ref Range pH 7.42 7.35 - 7.45 PCO2 55 (H) 32 - 48 mmHg PO2 86 83 - 108 mmHg CO2, TOTAL 37 (H) 19 - 24 mmol/L BICARBONATE 36 (H) 21 - 28 mmol/L O2 SAT 99 (H) 94 - 98 % BASE EXCESS 9.3 (H) 0 - 3 mmol/L SITE RIGHT RADIAL MIRANDA'S TEST POSITIVE DEVICE BIPAP FIO2 70.0 % MODE BIPAP PEEP/CPAP 5 PRESSURE SUPPORT 14 RATE 20 Performed by [id number]:Xr Chest PortResult Date: 04/19/2019History: Respiratory difficulty. FINDINGS: A frontal portable view of the chestis submitted for interpretation and is comp ared to the prior study of04/06/2019. EKG leads overlie the chest. A right-sided midline catheter is notedin situ. The cardiac silhouette measures at the upper limits of normal. There ispatchy opacity noted at the lung bases, left greater than right, which may beinfiltra tive or atelectatic in nature. A small left pleural effusion is noted.Mediastinal and hilar structures are unremarkable.IMPRESSION: Basilar infiltrative change left greater than ri ght. Small leftpleural effusion.EK:58 SR with inverted T wave in lead III, V1, V3, V4, V6. A change fromprevious EKG dated 03/25/2019. Q wave is present in lateral leads.Differe ntial Diagnosis:Differential Diagnosis includes but is not limited to:Acute respiratory fail ureCOPD exacerbationSepsisPneumoniaED Course:68 yo unresponsive male presents to the ED fro [facility] via EMS for evaluation ofrespiratory distress, unknown duration of time. Hx of COPD.Pat ient's oxygen saturation is 82% on 100% NRB mask with respiratory rateupwards of 40 breat hs per minute. Patient placed on Bi Pap soon after arrival.Septic bundle, Zosyn and Vancomy cinABG, Tylenol suppository PRN every 4 hours for feverDuo Neb, Vqeagfcdcp07:58 new T wave inversion in leads III, V1, V3, V4, -6 possibly due to demandischemia. Troponin added to lab s.10:45 ABG consistent with COPD exacerbation. PCO2 5511:38 AMOxygen saturation is improved. Will repeat ABG and potentially lower FIO2 from70 %. Patient appears to be breathing easie r with BiPap. Dr Hills consulted foradmission orders.CXR demonstrates bibasilar infilt rates. No trudaullrgcm31:32 [address]MPat[address] endorsed [address] Hills for admissionFinal Impression/ Diagnosis:Encounter Diagnoses ICD-10-CM ICD-9-CM1. Acute exacerbation of chronic obstructiv e pulmonary disease (COPD) ([facility])J44.1 491.212. Acute hypoxemic respiratory failure ([facility]) J96. 01 518.813. Pneumonia of both lower lobes due to infectious organism ([facility]) J18.1 483.8Pat ient condition at time of disposition: Neeta Stern,attest that all of the info rmation above was obtained by myselfunder the supervision of Faisal Marinelli MD. I have o rdered and reviewed thediagnostic studies, unless otherwise noted.Neeta Coleman MSN, MEDIEVAL ENGLISH LITERATURE PROFESSOR-BC , ENP-C Name Value Range Interpretation Code Description Data Harriett rce(s) Supporting Document(s ) ID Date Data Source [id number] 04/19/2019 03:23:48 PM [facility] Name Value Range Interpretation Description Data Sup porting Code Source(s) Document(s ) Lactate 1.8 0.4-2.0 [facility] [Moles/volu MMOL/L [facility]] in Hospital Serum or Plasma ID Date Data Source [id number] 04/19/2019 10:43:57 AM [facility] History:Respiratory difficulty.FINDINGS: A frontal portable view of the chest is submitted for interpretation and iscompa red to the prior study of 04/06/2019.EKG leads overlie the chest. A right-sided m idline catheter is noted in situ.The cardiac silhouette measures at the upper limits of normal. There is patchyopacity noted at the lung bases, left greater than right, which may beinfiltrative or atelectatic in nature. A small left pleural effusion is noted.Mediastinal and hilar structures are unremarkable.IMPRESSION: Basilar infiltr ative change left greater than right. Small left pleuraleffusion. Signing date/time: 04/19/2019 10:43 AMSigned by: SAMIR RENTERIA Name Value Range Interpretation Code Description Data Harriett rce(s) Supporting Document(s ) ID Date Data Source [id number] 04/19/2019 10:46:37 AM EST [facility] Value Range Interpretation Description Data Sup porting Code Source(s) Document(s ) pH of Arterial 7.42 7.35-7.4 [facility] blood 5 [facility] Carbon dioxide 55 mmHg 32-48 Above high normal [facility] [Partial [facility] pressure] in Hospital Arterial blood Oxygen 86 mmHg 83-108 [facility] [Partial [facility] pressure] in Hospital Arterial blood Carbon 37 19-24 Above high normal [facility] dioxide, total mmol/L [facility] [Moles/volume] Hospital in Arterial blood Bicarbonate 36 21-28 Above high normal [facility] - Go od [Moles/volume] mmol/L [facility] in Arterial Hospital blood Oxygen 99 % 94-98 Above high normal [facility] saturation in [facility] Base excess in 9.3 0-3 Above high normal [facility] Good Arterial blood mmol/L [facility] by calculation Hospital Body site [facility] Arterial [facility] - [facility] patency Wrist [facility] artery --pre Hospital arterial puncture Oxygen gas [facility] - [facility] flow Oxygen [facility] system Oxygen/Inspire 70.0 % [facility] - [facility] d gas [facility] Respiratory [facility] system --on ventilator Ventilation [facility] - Good mode [facility] [Identifier] [facility] Ventilator PEEP 5 [facility] Respiratory [facility] system Hospital Pressure 14 [facility] - Good support [facility] Ventilator Respiratory 20 [facility] - Good rate [facility] Service 76604 [facility] - Good comment [facility] ID Date Data Source [id number] 04/22/2019 07:29:54 AM EST [facility] Value Range Interpretation Code Description Data Harriett rce(s) Supporting Document(s ) Service [facility] - [facility] comment [facility] GRAM POSITIVE COCCIIN CLUSTERSANAEROBIC BOTTLECALLED TO AND READ BACK BYROB LEDEZMA, RN, ED, AT 0953 ON 04/20/19 TO RI SMIRAGLIA Bacteria identified in Abnormal (applies to [facility] Unspecified specimen by non-numeric results) Hospital Culture ID Date Data Source [id number] 04/22/2019 07:29:54 AM EST [facility] Value Range Interpretation Code Description Data Supporting Source(s) Document(s ) Clindamycin Results entered -- [facility] - [Susceptibility] not verified Good by Minimum [facility] inhibitory Hospital concentration (ANTONIO) Erythromycin Results entered -- [facility] - [Susceptibility] not verified Good by Minimum [facility] inhibitory Hospital concentration (ANTONIO) Gentamicin Susceptible. [facility] - [Susceptibility] Indicates for Good by Minimum microbiology [facility] inhibitory susceptibilities Hospital concentration only. (ANTONIO) Oxacillin Results entered -- BSS - [Susceptibility] not verified Good by Minimum [facility] inhibitory [facility] concentration (ANTONIO) Penicillin G Results entered -- BSS - [Susceptibility] not verified Good by Minimum [facility] inhibitory Hospital concentration (ANTONIO) Vancomycin 2 ug/mL Susceptible. [facility] - [Susceptibility] Indicates for Good by Minimum microbiology [facility] inhibitory susceptibilities Hospital concentration only. (ANTONIO) Tetracycline Results entered -- [facility] - [Susceptibility] not verified Good by Minimum [facility] inhibitory [facility] concentration (ANTONIO) ID Date Data Source [id number] 04/19/2019 12:27:44 PM EST [facility] Value Range Interpretation Description Data Sup porting Code Source(s) Document(s ) Troponin 0.05 0.00-0.05 [facility] I.cardiac NG/ML [facility] [Mass/volume [facility] ] in Serum or Plasma (NOTE)The presence of detectable troponi n above the reference rangeindicates myocardial injury which may be due to is chemia,myocarditis, trauma, etc. Clinical correlation is necessary todetermine the significance of this finding. Sequential testing isrecommended to determine if th e typical rise and fall of cTnI isdemonstrated. Note, cardiac troponin-I has a relatively longhalf-life and may be present well after the CK MB has returne d tobaseline. cTnI results in the indeterminate/enriquez zone for myocardial infarction: 0.06 to 0.59 ng/mL cTnI cutoff/range of values consistent with m yocardial infarction: 0.60 to 1.50 ng/mL ID Date Data Source [id number] 04/19/2019 11:31:17 AM EST [facility] Name Value Range Interpretation Description Data Sup porting Code Source(s) Document(s ) Lactate 2.6 0.4-2.0 Above upper panic [facility] [Moles/volu MMOL/L limits [facility] me] in Hospital Serum or Plasma CALLED TO AND READ BACK BY NANCY BATISTA 04/19/19 @1131 JULISSA BRAN ID Date Data Source [id number] 04/19/2019 11:07:11 AM EST [facility] Name Value Range Interpretation Description Data Sup porting Code Source(s) Document(s ) Sodium 134 136-145 Below low normal [facility] [Moles/volume] mmol/L [facility] in Serum or Hospital Plasma Potassium 3.7 3.5-5.1 [facility] [Moles/volume] mmol/L [facility] in Serum or Hospital Plasma Chloride 92 98-107 Below low normal [facility] [Moles/volume] mmol/L [facility] in Serum or Hospital Plasma Carbon 37 21-32 Above high normal [facility] dioxide, total mmol/L [facility] [Moles/volume] Hospital in Serum or Plasma Anion gap in 9 mmol/L 10-20 Below low normal [facility] Go od Serum or [facility] Plasma Hospital Glucose 118 74-106 Above high normal [facility] [Mass/volume] mg/dL [facility] in Serum or Hospital Plasma Urea nitrogen 16 mg/dL 7-18 [facility] [Mass/volume] [facility] in Serum or Hospital Plasma Creatinine 0.69 0.70-1.3 Below low normal [facility] [Mass/volume] mg/dL 0 [facility] in Serum or Hospital Plasma Glomerular >60 [facility] - [facility] filtration [facility] rate/1.73 sq M Hospital predicted among blacks [Volume Rate/Area] in Serum or Plasma by Creatinine-bas ed formula (MDRD) Glomerular >60 [facility] - Good filtration [facility] rate/1.73 sq M Hospital predicted among non-blacks [Volume Rate/Area] in Serum or Plasma by Creatinine-bas ed formula (MDRD) (NOTE)Estimated GFR is calculated using the Modification of Diet in RenalDisease (MDRD) Study equation, reported for both Americans(GFRAA) and non- Americans (GFRNA), and normalized to 1.7 1b6zjuc surface area. The physician must decide which value applies tothe patient . The MDRD study equation should only be used inindividuals age 18 or older. It has no t been validated for thefollowing: women, patients with serious comorbid co nditions,or on certain medications, or persons with extremes of body size,muscl e mass, or nutritional status. Calcium [Mass/volume] in 9.8 mg/dL 8.5-10.1 [facility] Serum or Plasma [facility] ital Bilirubin.total 0.2 mg/dL 0.2-1.0 [facility] - [facility] [Mass/volume] in Serum or [facility] Plasma Alanine aminotransferase 12 U/L 13-61 Below low normal [facility] [Enzymatic activity/volume] [facility] in Serum or Plasma Aspartate aminotransferase 21 U/L 15-37 [facility] - Good [Enzymatic activity/volume] [facility] in Serum or Plasma by With P-5'-P Alkaline phosphatase 75 U/L 45-117 [facility] [Enzymatic activity/volume] [facility] in Serum or Plasma Protein [Mass/volume] in 6.3 g/dL 6.4-8.2 Below low normal [facility] Good Serum or Plasma [facility] ital Albumin [Mass/volume] in 2.1 g/dL 3.5-4.7 Below low normal [facility] - Good Serum or Plasma by [facility] ospital Bromocresol purple (BCP) dye binding method Globulin [Mass/volume] in 4.2 g/dL 1.7-4.7 [facility] Serum by calculation [facility] Albumin/Globulin [Mass 0.5 0.7-2.8 Below low normal [facility] - Good Ratio] in Serum or Plasma [facility] ID Date Data Source [id number] 04/19/2019 11:04:01 AM EST [facility] Name Value Range Interpretation Description Data Sup porting Code Source(s) Document(s ) Leukocytes 8.1 K/uL 4.8-10.6 [facility] - [#/volume] in Good Blood by [facility] Automated count Hospital Erythrocytes 3.78 4.70-6.0 Below low normal [facility] - [#/volume] in M/uL 0 Good Blood by [facility] Automated count Hospital Hemoglobin 11.8 14.0-18. Below low normal [facility] - [Mass/volume] in g/dL 0 [facility] Blood [facility] Hematocrit 36.7 % 42.0-52. Below low normal [facility] - [Volume 0 Good Fraction] of [facility] Blood by Hospital Automated count Erythrocyte mean 97.1 FL 81.0-94. Above high normal [facility] - corpuscular 0 Good volume [Entitic [facility] volume] by Hospital Automated count Erythrocyte mean 31.2 PG 27.0-35. [facility] - corpuscular 0 Good hemoglobin [facility] [Entitic mass] Hospital by Automated count Erythrocyte mean 32.2 30.7-37. [facility] - corpuscular g/dL 3 Good hemoglobin [facility] Hospital [Mass/volume] by Automated count Erythrocyte 16.6 % 11.5-14. Above high normal [facility] - distribution 0 Good width [Ratio] by [facility] Automated count Hospital Platelets 247 K/uL 130-400 [facility] - [#/volume] in Good Blood by [facility] Automated count Hospital Platelet mean 9.4 FL 9.2-11.8 [facility] - volume [Entitic Good volume] in Blood [facility] by Automated Hospital count Nucleated 0.0 PER 0 [facility] - erythrocytes/100 100 WBC Good leukocytes [facility] [Ratio] in Blood Hospital Nucleated 0.00 0.0-0.01 [facility] - erythrocytes K/uL Good [#/volume] in Taoist Blood [facility] Segmented 78 % 48.0-72. Above high normal [facility] - neutrophils/100 0 Good leukocytes in [facility] Lymphocytes/100 9 % 18.0-40. Below low normal [facility] - leukocytes in 0 [facility] Blood [facility] Monocytes/100 12 % 2.0-12.0 [facility] - leukocytes in Good Blood [facility] Eosinophils/100 0 % 0.0-7.0 [facility] - leukocytes in Good Blood [facility] Basophils/100 0 % 0.0-3.0 [facility] - leukocytes in [facility] Immature 1 % 0-0.5 Above high normal [facility] - granulocytes/100 [facility] leukocytes in [facility] by Hospital Automated count Segmented 6.4 K/UL 2.3-7.6 [facility] - neutrophils Good [#/volume] in [facility] Lymphocytes 0.7 K/UL 0.9-4.2 Below low normal [facility] - [#/volume] in [facility] Monocytes 1.0 K/UL 0.1-1.7 [facility] - [#/volume] in [facility] Eosinophils 0.0 K/UL 0.0-1.0 [facility] - [#/volume] in [facility] Basophils 0.0 K/UL 0.0-0.4 [facility] - [#/volume] in [facility] Immature 0.1 K/UL 0.0-0.17 [facility] - granulocytes Good [#/volume] in [facility] Automated count Differential [facility] - cell count [facility] ID Date Data Source [id number] 04/22/2019 07:31:57 AM EST [facility] Name Value Range Interpretation Code Description Data Harriett rce(s) Supporting Document(s ) Service [facility] GRAM POSITIVE COCCIIN CLUSTERSANAEROBIC BOTTLECALLED TO AND READ BACK BYROB LEDEZMA RN, ED, 0961 ON 04/20/19 RK Fitzpatrick MIRAGLIASTAPHYLOCOCCUS EPIDERMIDIS: Refer to previous culture(s) for susceptibility r esults ID Date Data Source [id number] 04/19/2019 09:52:52 AM EST [facility] Pt BIBA from [place] c/o respiratory distress and altered mental status. Ptreceived Tylenol prior to arrival in [facility]. Name Value Range Interpretation Code Description Data Harriett rce(s) Supporting Document(s ) ID Date Data Source [id number] 04/16/2019 02:24:15 PM EST [facility] TRANSFER - OUT REPORT:Verbal report give n to Ana María nursing component assembler supervisor on [facility]io [facility] progression of careReport consisted of patient's Situation, Backgr ound, Assessment andRecommendations(SBAR).Information fro m the following report(s) SBAR, Procedure Summary and MAR wasreviewed with the [facility] e[facility] nurse.Opportunity for questions and clarification was provided.Patient trans ported with: O2 @ 4 litersTech Name Value Range Interpretation Code Description Data Harriett rce(s) Supporting Document(s ) ID Date Data Source [id number] 04/16/2019 02:01:17 PM EST [facility] Esophago- Gastroduodenoscopy (EGD) Dea [id number]: Endo scopic Gastroduodenoscopy with positioning of J tube andendoclippingIndication: dyspha jaydon and vomitingPre-operative Diagnosis: see indication abovePost-operative Diagnosis : see findings belowOperator: JOSE Oleaeferring Provider: Mili Hills, DOAnesthesia/Sedation: MAC anesthesia PropofolProcedure DetailsAfter infomed c onsent was obtained for the procedure, with all risks andbenefits of procedure expla ined the patient was taken to the endoscopy suite andplaced in the left lateral decu bitus position. Following sequentialadministration of sedation as per above, the endoscope was inserted into themouth and advanced under direct visio n to mid-jejunum. A careful inspection wasmade as the gastroscope was withdrawn , including a retroflexed view of theproximal stomach; findings and interventions are described below.Findings:Esophagus:normalStomach: sizable HH presentDuodenum/jejunum: normalTherapies: Dragged original J tub e into mid jejunum but suture broke and thuscould not attach it. Old tube broke trying to pull it out of 24F overtube toattach new suture. Got new J tube and draged it down into mid jejunum andendoclipped it, On the way out the s uture broke again and the tube was seen inthe duodenum. Had to end procedure due to t jose alejandro under anesthesia and hypoxia.Specimens: * No specimens in log *EBL: NoneComplicati ons: None; patient tolerated the procedure well.Implants: NoneImpression:-Despite m ultiple attempts, J tube suture broke and thus tube in duodenum andmay kink or com e out. These tubes do not work well and I have suggestedsurgical placement of J tu be. Will discuss with surgeon and possible get secondopinion.Recommendations:-KUB a nd resume TF.Signed By: Diogo Collins MD 04/16/2019 1:55 PM Name Value Range Interpretation Code Description Data Harriett rce(s) Supporting Document(s ) ID Date Data Source [id number] 04/16/2019 01:51:44 PM EST [facility] Procedure(s):ESOPHAGOGASTRODUODENOSCOPY (EGD) J TUBE ADJUSTING.MACAnesthesia Post EvaluationMultimodal analgesia: multimod al analgesia used between 6 hours prior toanesthesia start to PACU dischargePati ent location during evaluation: PACUPatient participation: complete - patient cannot participateLevel of consciousness: awake (baseloine)Pain score: 0Pain management: adequateAirway patency: patentAnesthetic complications: noCardiovascular status: acceptableRespiratory status: acceptableHydration status: acceptablePo st anesthesia nausea and vomiting: noneVitals Value Taken TimeBP 137/69 04/16 1:50 PMTemp 36.8 C (98.2 F) 04/16/2019 1:50 PMPulse 68 04/16/2019 1:50 PMResp 1 4 04/16/2019 1:50 PMSpO2 98 % 04/16/2019 1:50 PM Name Value Range Interpretation Code Description Data Harriett rce(s) Supporting Document(s ) ID Date Data Source [id number] 04/16/2019 12:58:40 PM EST [facility] Relevant ProblemsNo relevant active prob lemsAnesthetic HistoryReview of Systems / Medical HistoryPatient summary reviewed, nursing notes reviewed and pertinent labs reviewedPulmonaryCOPD Neuro/PsychPsychia tric historyComments: ParkinsonsMental retardationschizophrenia CardiovascularE xercise tolerance: <4 METSComments: HypotensionGI/Hepatic/RenalGERDComments: Diaphragmatic hernia (non-obstructive) Endo/Other Other FindingsPhysical ExamAi rwayMallampati: IIITM Distance: 4 - 6 cmNeck ROM: normal range of motionMouth opening : Normal CardiovascularRegular rate and rhythm, S1 and S2 normal, no murmur, c lick, rub, or gallop DentalDentition: Poor dentitionPulmonaryDecreased breath sound s: bibasilar AbdominalGI exam deferred Other FindingsAnesthetic PlanASA: 3Anesthesia type: MACInduction: IntravenousAnesthetic plan and risks discussed with: Healthcar e power of research attorney Name Value Range Interpretation Code Description Data Harriett rce(s) Supporting Document(s ) ID Date Data Source [id number] 04/06/2019 05:44:17 PM EST [facility] Patient discharged without removing armb and and transfered to another healthcareacute, sub acute , or extended care facility. Informed of privacy risks ifarmband lost or stolen Name Value Range Interpretation Code Description Data [facility] rce(s) Supporting Document(s ) ID Date Data Source [id number] 04/06/2019 04:51:11 PM EST [facility] Name Value Range Interpretation Description Data Sup porting Code Source(s) Document(s ) Glucose 74 MG/DL 65-110 [facility] [Mass/volume] Taoist in Blood by Hospital Automated test strip ID Date Data Source [id number] 04/06/2019 03:29:39 PM [facility] ID Progress Note04/06/2019Subjective:Betty ient with history of MR,COPD,recurrent aspiration pneumonia,dysphagia s/p pegpl acement was transferred from the long-term for respiratory distress,lowoxygen satur ation of 77% on 4 L nasal canula.Awake non verbal,unale to provide historyAfebrile. Objective:Review of SystemsUnable to provide.Vitals:Patient Vitals for the me st 24 hrs: BP Temp Pulse Resp SpO2 Ffmljo98/23/19 1225 119/65 98.2 F (36.8 C) 71 20 96 % -04/06/19 0918 - - - - 99 % -04/06/19 0821 127/57 97.6 F (36.4 C) 61 20 98 % -04/06/19 0755 - - - - 99 % -04/06/19 0556 122/84 97.6 F (36.4 C) 62 21 97 % 47.1 kg (103 lb 14.4 oz)04/06/19 0128 - - - - 98 % -04/06/19 0015 127/66 97.5 F (36.4 C) (!) 59 22 97 % -04/05/191 126/66 - - - - -04/05/192021 - - - - 100 % -04/05/191957 (!) 70/47 98.4 F (36.9 C) (!) 103 22 100 % -04/05/19 155 0 113/63 97.6 F (36.4 C) 64 20 100 % -Tmax: Temp (24hrs), Av.8 F (36.6 C), Mi n:97.5 F (36.4 C), Max:98.4 F(36.9 C)Physical Exam:General: Awake, nonverb al cooperative, no distress, appears stated age.Eyes: Conjunctivae/corneas clear. P ERRLNeck: Supple, symmetrical, trachea midline, no adenopathyLungs: Bilateral breath sounds with basal crackles..Heart: Regular rate and rhythm, S1, S2 normal, no murmurAbdomen: Soft, non-tender. Bowel sounds normal. No masses, Noorganomegal y.peg+Back: No CVA tenderness.Extremities: Chronic lymphedema, no cyanosisPulses: 2 + and symmetric all extremities.Skin: Skin color, texture, turgor normal. No rashes or lesionsCurrent Facility-Administered MedicationsMedication Dose Route Frequen cy magnesium hydroxide (MILK OF MAGNESIA) 400 mg/5 mL oral suspension 30 mL 30mL Oral DAILY PRN bisacodyl (DULCOLAX) suppository 10 mg 10 mg Rectal DAILY TN N potassium, sodium phosphates (NEUTRA-PHOS) packet 1 Packet 1 Packet Per GTube KYLEIGH Y white petrolatum (VASELINE) ointment Topical DAILY acetylcysteine (MUCOMYST) 100 mg/mL (10 %) nebulizer solution 400 mg 4 mLInhalation BID RT sodium chloride ( NS) flush 5-10 mL 5-10 mL IntraVENous PRN acetaminophen (TYLENOL) solution 650 mg 650 mg Per G Tube Q4H PRN cinacalcet (SENSIPAR) tablet 60 mg 60 mg Oral KYLEIGH Y [Held by provider] heparin (porcine) injection 5,000 Units 5,000 UnitsSubCUT Aneous Q12H lamoTRIgine (LaMICtal) tablet 50 mg 50 mg Per G Tube BID valproic acid (as sodium salt) (DEPAKENE) 250 mg/5 mL (5 mL) oral solution 750mg 750 mg Per G Tu be Q12H multivit-folic acid-herbal 275 (WELLESSE PLUS) oral liquid 30 mL 30 mL Per GTube DAILY ALPRAZolam (XANAX) tablet 0.25 mg 0.25 mg Per G Tube QPM albuter ol-ipratropium (DUO-NEB) 2.5 MG-0.5 MG/3 ML 3 mL Nebulization Q6H RT budesonide (PU LMICORT) 500 mcg/2 ml nebulizer suspension 500 mcg NebulizationBID RTLabs:Recent La bs 04/05/1905WBC 11.3* 9.1 9.6HGB 13.4* 12.5* 12.5*PLT 34 9 335 237BUN 17 12 10CREA 0.52* 0.38* 0.39*Cultures:Lab ResultsComponent Value Date/Time Culture result: NO GROWTH 5 DAYS 03/25/2019 03:10 AM Culture result: NO G ROWTH 5 DAYS 03/25/2019 02:55 AM Culture result: NO GROWTH 5 DAYS 03/11/2019 04:1 4 AM Culture result: NO GROWTH 5 DAYS 03/11/2019 04:14 AMRadiology:Xr Chest Po rtResult Date: 04/06/2019CHEST one view HISTORY: Pneumonia. COMPARISON: 03/25/20 19. There is a poorinspiratory effort which compromises this interpretation. A repea t study issuggested. There is discoid atelectasis and/or subsegmental left low er lobeatelectasis along the left hemidiaphragm. .There is no gross eviden ce ofcongestion, effusions or pneumothorax.IMPRESSION: Possible left l ower lobe atelectasis. Poor inspiratory effort.Assessment: Recurrent aspiration pneumonia. Acute COPD exacerbation Acute hypercapnic respiratory failure. Dyspha jaydon s/p peg placement.. Atelectasis. Plan:1. discontinue IV cefepime and vancomycinFo malaika Dudley, MDDecember 20182:34 PM Name Value Range Interpretation Code Description Data Harriett rce(s) Supporting Document(s ) ID Date Data Source [id number] 04/06/2019 02:19:43 PM EST [facility] GI PROGRESS NOTENAME: Evelio Shukla hbeinDOB: 1950MRN: [id number]:Reviewed the barium tu be study. Barium in side port flow into the stomachfirst, then into SB and fundus.2 kinks on X-ray.Able to reduce the kinks if I pull the inner J-tube out from the outer PEG andthen the tube flushes just fine. If I push the inner tube back in the kinksr eform.Objective:abd soft, no tendernessVITALS:Last 24hrs VS reviewed since prior progress note. Most recent are:Visit VitalsBP 119/65 (BP 1 Location : Left arm, BP Patient Position: Head of bed elevated(Comment degrees))Pulse 71Temp 9 8.2 F (36.8 C)Resp 20Wt 47.1 kg (103 lb 14.4 oz)SpO2 96%BMI 19.00 kg/m Intake/Ou tput Summary (Last 24 hours) at 04/06/2019 1406Last data filed at 04/06/2019 0127Gr oss per 24 hourIntake 0 mlOutput 400 mlNet -400 mlPHYSICAL EXAM:General: Alert, in no acute distressHEENT: Anicteric sclerae.Lungs: CTA Bilaterall y.Heart: Regular rhythm,Abdomen: Soft, Non distended, Non tender. (+)Bowel sounds, no HSMExtremities: No c/c/eNeurologic: CN 2-12 gi, Alert. No acute neurological d istressPsych: Poor insight. Not anxious nor agitated.Lab Data Reviewed:Recent Labs 04/05/1905WBC 11.3* 9.1HGB 13.4* 12.5*HCT 42.5 38.7*PLT 349 335Rece nt Labs 04/05/1905NA 140 137K 4.6 4.4CL 98 96*CO2 37* 36*BUN 17 12CREA 0.52* 0.38*GLU 82 126*PHOS 2.8 3.3CA 10.6* 9.6Recent Labs 04/05/1905 4ALB 2.5* 2.3* Pati ent Active Problem ListDiagnosis Code Parae sophageal hiatal hernia K44.9 COPD (chronic obstructive pulmonary disease) ([facility]) J44 .9 Acute respiratory distress R06.03 Pneumonia J18.9 COPD exacerbation ([facility]) J44.1 Sepsis due to undetermined organism ([facility]) A41.9 Generalized anxiety disorde r F41.1 Acute respiratory failure with hypoxia ([facility]) J96.01 Pneumonia involvin g right lung J18.9 Hyponatremia E87.1 SOB (shortness of breath) R06.02 Pressure i njury of right heel, stage [address]) L89.612 Leg wound, right, initial encounter S81. 801A Acute hypoxemic respiratory failure ([facility]) J96.01Assessment: Dysfunctional J tube over PEG due to kinking in loop that is in stomach. Recurrent asp PNAPlan: Pt for dc today Will have pt return as outpt on 1-2 or 1-3 in order to try to push Jtube deeper into SB via colonoscopy such that the gastric portion will not loop orKink. S till feel that surgical J tube best option and if pt returns with further aspPNA wo uld suggest further surgical eval.Signed By: Diogo Collins MD 04/06/2019 2:06 PM Name Value Range Interpretation Code Description Data Harriett rce(s) Supporting Document(s ) ID Date Data Source [id number] 04/06/2019 12:59:17 PM EST [facility] Per RN, Documented in error. Name Value Range Interpretation Code Description Data Harriett rce(s) Supporting Document(s ) ID Date Data Source [id number] 04/06/2019 12:37:20 PM EST [facility] Discharge SummaryPatient: Evelio barlow Sex: male DOA: 03/25/2019Date of : 1950 Age: 68 y.o. LOS: 12 daysAdmit Date: 03/25/2019Discharge Date: 04/06/20 19Discharge Diagnoses: THIS IS MEDICINE COVERAGE FOR DR Conner List as of 04/06/2019 Date Reviewed: 04/06/2019 Codes Class Noted - Resolved Acute hypox emic respiratory failure (HCC) ICD-10-CM: J96.01ICD-9-CM: 518.81 03/25/2019 - Pre sent Pressure injury of right heel, stage 2 (HCC) ICD-10-CM: L89.612ICD-9-CM: 707.07 , 707.22 02/09/2019 - Present Leg wound, right, initial encounter ICD-10-CM: S81. 522QIUY-5-FY: 894.0 02/09/2019 - Present SOB (shortness of breath) ICD-10-CM: R06.02I CD-9-CM: 786.05 02/08/2019 - Present Acute respiratory failure with hypoxia (HCC) I CD-10-CM: J96.01ICD-9-CM: 518.81 01/10/2019 - Present Pneumonia involving right lung I CD-10-CM: J18.9ICD-9-CM: 486 01/10/2019 - Present Hyponatremia ICD-10-CM: E87.1ICD -9-CM: 276.1 01/10/2019 - Present Generalized anxiety disorder (Chronic) ICD-10-CM: F4 1.1ICD-9-CM: 300.02 12/30/2018 - Present Sepsis due to undetermined organism (HCC ) ICD-10-CM: A41.9ICD-9-CM: 038.9 12/12/2018 - Present COPD (chronic obstructive pulm onary disease) (HCC) ICD-10-CM: J44.9ICD-9-CM: 496 11/08/2018 - Present Acute respiratory distress ICD-10-CM: R06.03ICD-9-CM: 518.82 11/08/2018 - Pres ent Pneumonia ICD-10-CM: J18.9ICD-9-CM: 486 11/08/2018 - Present COPD exacerbation (H CC) ICD-10-CM: J44.1ICD-9-CM: 491.21 11/08/2018 - Present Paraesophageal hiata l hernia ICD-10-CM: K44.9ICD-9-CM: 553.3 09/26/2015 - PresentDischarge Condition: GoodHospital Course: pt was admitted for malfunction of peg/ aspiration/Acute res p failure with hypoxemic. Pt had PEJ placed.According to GI pej is working fu nctionally . Pt will be discharged to snf.Pt was seen by multiple services.Consults: Gastroenterology, Internal Medicine and NephrologySignificant Diagnostic Studies : labs, microbiology, and radiology:Discharge Medications:Current Discharge Medication ListCONTINUE these medications which have CHANGED Detailsomeprazole (PRILOSEC) 2 m g/mL susp 2 mg/mL oral suspension (compounded) Take 20mL by mouth daily.Qt y: 20 mL, Refills: 0CONTINUE these medications which have NOT CHANGED Detai lsheparin sodium,porcine (HEPARIN, PORCINE,) 5,000 unit/mL injection 1 mL bySubCUTAne ous route every twelve (12) hours every twelve (12) hours.Qty: 10 mL, Refills: 0 multivitamin (MULTI-DELYN, WELLESSE) liqd 5 mL by Per G Tube route daily.Qty: 1 Bunny le, Refills: 1acetaminophen (TYLENOL) 32MG/ML soln solution Take 20.3 mL by mouth ever y four(4) hours as needed for Pain or Fever.Qty: 500 mL, Refills: 0valproic ac id, as sodium salt, (DEPAKENE) 250 mg/5 mL (5 mL) soln oral [id number] mg by Per G Tu be route every twelve (12) hours.acetylcysteine (MUCOMYST) 100 mg/m L (10 %) nebulizer solution Take 4 mL byinhalation two (2) times a day.cloraze jordan (TRANXENE) 3.75 mg tablet 1 Tab by Per G Tube route nightly. MaxDaily Amount: 3.7 5 mg.Qty: 30 Tab, Refills: 5 Associated Diagnoses: Generalized anxiety disorderc inacalcet (SENSIPAR) 30 mg tablet Take 2 Tabs by mouth daily.Qty: 60 Tab, Refills: 5la moTRIgine (LAMICTAL) 25 mg tablet 2 Tabs by Per G Tube route two (2) times aday.Qty: 60 Tab, Refills: 5albuterol-ipratropium (DUO-NEB) 2.5 mg-0.5 mg/3 ml nebu 3 mL b y Nebulizationroute every six (6) hours. Every 6 hours while awakeQty: 30 Nebule, Refills: 0budesonide (PULMICORT) 0.5 mg/2 mL nbsp 2 mL by Nebulization route two (2) timesa day.Qty: 60 Each, Refills: 0Activity: Activity as toleratedDiet: PEG feeding a t 30-50ml/hrDischarge to: snfFollow-up: Follow up with Pat Shelley 2018 Name Value Range Interpretation Code Description Data [facility] rce(s) Supporting Document(s ) ID Date Data Source [id number] 04/06/2019 12:19:25 PM [facility] Name Value Range Interpretation Description Data Sup porting Code Source(s) Document(s ) Glucose 117 MG/DL 65-110 Above high normal [facility] [Mass/volume] Taoist in Blood by [facility] Automated test strip ID Date Data Source [id number] 04/06/2019 11:40:29 AM [facility] CM provided RN with pt sister Michell dayton alonso number to call to give an update on ptas requested. Name Value Range Interpretation Code Description Data [facility] rce(s) Supporting Document(s ) ID Date Data Source [id number] 04/06/2019 11:39:49 AM [facility] Care Management InterventionsPCP Verifie d by CM: YesMode of Transport at Discharge: S([facility] 6 pm)Transition of Care Consult (CM Consult): Discharge PlanningMyChart Signup: NoDischarge Dura ble Medical Equipment: NoPhysical Therapy Consult: NoOccupational Therapy Consult: NoSpeech Therapy Consult: NoCurrent Support Network: Nursing Facility([place] )T he Patient and/or Patient Engineering Group Manager was Provided with a Choice of Providerand Ag phillip with the Discharge Plan?: YesFreedom of Choice List was Provided with Basic Dial ogue that Supports thePatient's Individualized Plan of Care/Goals, Treat ment Preferences and Sharesthe Quality Data Associated with the Providers?: YesVeter an Resource Information Provided?: RefusedDischarge LocationDischarge Place ment: Home([facility])Case Management Discharge Note: Pt sister MD Michell, RN, and liaison all aware and in agreement. CM remainsavailable for any further dischar ge needs. Name Value Range Interpretation Code Description Data Harriett rce(s) Supporting Document(s ) ID Date Data Source [id number] 04/06/2019 11:21:47 AM EST [facility] Progress NoteSILVER [facility]ILL [facility] ,[facility].Krystian Monae MD., F.C.C.P.Stella Hamilton MD., F.C.C.P. [address] [facility] [address] [place] [id number] [place] [phone]: Evelio Carlin Sex: male DOA: 03/25/2019D ate of : 1950 Age: 68 y.o. LOS: LOS: 12 daysSubjective:Mr. Guilelrmo buck is a 68 y.o. year old male who is being seen for ACUTEHYPERCAPNIC AND HYPO XIC RESPIRATORY FAILURE . HE IS WEARING V. M 40 % SPO2=99 %AND HE IS COMFORTABLE ..Mr. Carlin IS AWAKE ,MENTALLY RETARDED , AWAITING SURGICAL REPLACEMEN TJ TUBE CURRENT ONE HAVE FRACTURE .GASTROGAFFIN STUDY VIA P E G DIANNA WS NO EXTRAVASATION OF DYE , BUTWORKING GOOD PER DR MOTLEY . PEG TUBE OPE NATALY UP BY G I , FEEDING STARTED . PATIENT IS COMFORTABLE . HE HAVE SEVERE COPD , HE IS CO2 RETAINER BUT MORE AWAKE AND ALERT . HE TOLERATED PICC LINE INSERT ION YESTERDAY. . Evelio Carlin is a 68 y.o. male with history of COPD, VONDA D,hyperparathyroidism, Parkinsonism, pneumonia, schizophrenia, and pulmonarye mboli with a surgical history of gastrostomy who presents to the EmergencyDepartment via emergency medical services sent in from long-term for hypoxiaand possible pne [facility]. The patient has multiple incidences of pneumonia in thepast. The patient is nonverbal at baseline and cannot provide any history ofreview of systems at the time. PATIENT HAVE SEVERE CEREBRAL PALSY , MENTAL RETARDATION AND IS NON VERBAL .N O HX CANNOT BE CONFIRMED FROM PATIENT , CHART IS REVIEWED.MULTIPLE ADMISSIONS F OR ASPIRATION PNEUMONIA , HE IS BED RIDDEN . PATIENTT NOW IS ON BIPAP SUPPORT SP O2 = 96% ON FIO2 65% .PATIENT IS SLIGHTLY MORE AWAKE TODAY AND IS COMFORTABLE SPO2 0N 4 L N C = 92 % HAVE FRACTURED SEGMENT OF PEG TUBE NEAR INSERTION NEEDS REPLACEMENT . 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 Social History Tobacco Use Smoking status: Never Smoker Smokeless tobacco: Never UsedSubstance Use Topics Alcohol use: No History reviewed. No pertinent family history. No Known Aller gies Prior to Admission medicationsMedication Sig Start Date End Date Taking? Authorizing Providerheparin sodium,porcine (HEPARIN, PORCINE,) 5,000 unit/mL injection 1 mL bySubCUTAneous route every twelve (12) hours every twelve (12 ) hours. 03/17/19 Mili Hills DOmultivitamin (MULTI-DELYN, WELLESSE) l iqd 5 mL by Per G Tube route daily.03/17/19 Mili Hills DOacetaminophen (TYLEN OL) 32MG/ML soln solution Take 20.3 mL by mouth every four(4) hours as needed for Pain or Fever. 03/17/19 Mili Hills DOvalproic acid, as sodium salt, (DEPAKE NE) 250 mg/5 mL (5 mL) soln oral mg by Per G Tube route every twelve (12) hours. Provider, Edieacetylcysteine (MUCOMYST) 100 mg/mL (10 %) nebulizer solution Take 4 mL byinhalation two (2) times a day. Provider, Edieclorazepate (TRANXENE) 3.75 mg tablet 1 Tab by Per G Tube route nightly. MaxDaily Amount: 3.75 mg. 12/30/18 Mili Hills DOcinacalcet (SENSIPA R) 30 mg tablet Take 2 Tabs by mouth daily.Patient taking differently: 30 mg daily. Via G tube 12/30/18 Mili HillsDOlamoTRIgine (LAMICTAL) 25 mg t ablet 2 Tabs by Per G Tube route two (2) times aday. 12/30/18 Mili Hills DOalbuterol-ipratropium (DUO-NEB) 2.5 mg-0.5 mg/3 ml nebu 3 mL by Nebulizationroute e very six (6) hours. Every 6 hours while awakePatient taking differently: 3 mL by Nebulization route every four (4) hours asneeded. Every 6 hours while awake 12/30 Mili Hills DObudesonide (PULMICORT) 0.5 mg/2 mL nbsp 2 mL by Neb ulization route two (2) timesa day. 12/30/18 Mili Hills DO REVIEW OF SYSTEMS : SEVERE MENTAL RETARDATION , CANNOT DO ROS .General: negative for fever, chill s, sweats, weaknessEyes: negative for blurred vision, eye pain, loss of vision, diplop iaEar Nose and Throat: negative for rhinorrhea, pharyngitis, otalgia, tinnit us,speech or swallowing difficultiesRespiratory: negative for c ough, sputum production, SOB, wheezing, DAVALOS,pleuritic painCardiology: negative for chest pain, palpitations, orthopnea, PND, edema,syncopeGastrointestinal: negative for abdominal pain, N/V, dysphagia, change in bowelhabits, bleedingGenitourinary: nega tive for frequency, urgency, dysuria, hematuria, incontinenceMuskuloskeletal : negative for arthralgia, myalgiaHematology: negative for easy bruising, bleeding, ly mphadenopathyDermatological: negative for rash, ulceration, mole change, new lesio nEndocrine: negative for hot flashes or polydipsiaNeurological: negative for hea dache, dizziness, confusion, focal weakness,paresthesia, memory loss, gait disturbancePsychological: negative for anxiety, depression, agitation Obje ctive:Objective:Vital Signs:Patient Vitals for the past 24 hrs: BP Temp Pulse Resp SpO2 Cjwpnp56/23/19 0918 - - - - 99 % -04/06/19 0821 127/57 97.6 F (36.4 C) 61 20 98 % -04/06/19 0755 - - - - 99 % -04/06/19 0556 122/84 97.6 F (36.4 C) 62 21 97 % 47.1 kg (103 lb 14.4 oz)04/06/19 0128 - - - - 98 % -04/06/19 0015 127/66 97.5 F (36.4 C) (!) 59 22 97 % -04/05/191 126/66 - - - - -04/05/192021 - - - - 100 % -04/05/19 1958 (!) 70/47 98.4 F (36.9 C) (!) 103 22 100 % -04/05/19 155 0 113/63 97.6 F (36.4 C) 64 20 100 % -04/05/19 1123 136/69 97.4 F (36.3 C) 67 20 95 % -Pulse OX:SpO2 Readings from Last 6 Encounters:04/06/19 99%03/17/19 92%10/31 96%02/18/19 92%01/24/19 93%12/30/18 96%@LASTSAO2(6)@Physical Exam:WEARING V . M 40 % SPO2 = 99 % General: Alert, cooperative, no distress, appears stated age. Head: Normocephalic, without obvious abnormali ty, atraumatic. Eyes: Conjunctivae/corneas clear. PERRL, EOMs intact. Nose: Nares normal. No drainage or sinus tenderness Thr oat: Lips, mucosa, and tongue normal Neck: Supple, symmetrical, trachea midline, no adenopathy,thyroid: no enlargement/tenderness/nodules, no carot id bruit and no JVD. Lungs: HAVE GOOD AIR EXCHANGE IN BOTH LUNGS , RALES AREFURTHER LESS to auscultation bilaterally. Chest Wall: No tendernes s or deformity. Heart: Regular rate and rhythm, S1, S2 normal, no murmu r, click,rub or gallop. Abdomen: Soft, non-tender. Bowel sounds normal. No mass es, No organomegaly. Extremities: Extremities normal, atraumatic, no cyano sis or edema. Pulses: 4+ bilaterally. Skin: Skin co nirali, texture, turgor normal. No rashes or lesions. Neurologic: CNII-XII intact. No focal motor or sensory deficit.Intake and Output:Last three shifts: 04/04 1901 - 04/06 0700In: 90Out: 2200 [Urine:2200]Lab Results:Recent Results (from the past 24 hour(s))GLUCOSE, POC Collection Time: 04/05/19 11:54 AMResult Value Ref Range Glucose, bedside 114 (H) 65 - 110 MG/DLGLUCOSE, POC Collection Time: 04/05 4:14 PMResult Value Ref Range Glucose, bedside 114 (H) 65 - 110 MG/DLGLUCOSE, P OC Collection Time: 04/06/19 12:31 AMResult Value Ref Range Glucose, bedside 106 65 - 110 MG/DLRENAL FUNCTION PANEL Collection Time: 04/06/19 5:18 AMResult Value Ref Range Sodium 140 136 - 145 mmol/L Potassium 4.6 3.5 - 5.1 mmol/L Chloride 98 98 - 10 7 mmol/L CO2 37 (H) 21 - 32 mmol/L Anion gap 9 (L) 10 - 20 mmol/L Glucose 82 74 - 106 mg/dL BUN 17 7 - 18 mg/dL Creatinine 0.52 (L) 0.70 - 1.30 mg/dL GFR est AA >60 >60 ml/min/1.73m2 GFR est non-AA >60 >60 ml/min/1.73m2 Calcium 10.6 (H) 8.5 - 10. 1 mg/dL Phosphorus 2.8 2.5 - 4.9 mg/dL Albumin 2.5 (L) 3.5 - 4.7 g/dLMAGNESIUM Collection Time: 04/06/19 5:18 AMResult Value Ref Range Magnesium 2.2 1.6 - 2.6 mg/dLCBC WITH AUTOMATED DIFF Collection Time: 04/06/19 5:18 AMResult Value Ref Range WBC 11.3 (H) 4.8 - 10.6 K/uL RBC 4.29 (L) 4.70 - 6.00 M/uL HGB 13.4 (L) 14.0 - 18. 0 g/dL HCT 42.5 42.0 - 52.0 % MCV 99.1 (H) 81.0 - 94.0 FL MCH 31.2 27.0 - 35.0 PG M CHC 31.5 30.7 - 37.3 g/dL RDW 17.0 (H) 11.5 - 14.0 % PLATELET 349 130 - 400 K/uL MPV 1 0.1 9.2 - 11.8 FL NRBC 0.0 0 PER 100 WBC ABSOLUTE NRBC 0.00 0.0 - 0.01 K/uL NEUTR OPHILS 46 (L) 48.0 - 72.0 % LYMPHOCYTES 36 18.0 - 40.0 % MONOCYTES 7 2.0 - 12.0 % E OSINOPHILS 2 0.0 - 7.0 % BASOPHILS 0 0.0 - 3.0 % METAMYELOCYTES 1 (H) 0 % MYELOCYTE S 8 (H) 0 % IMMATURE GRANULOCYTES 0 % ABS. NEUTROPHILS 6.2 2.3 - 7.6 K/UL ABS. LYMP HOCYTES 4.1 0.9 - 4.2 K/UL ABS. MONOCYTES 0.8 0.1 - 1.7 K/UL ABS. EOSINOPHILS 0.2 0.0 - 1.0 K/UL ABS. BASOPHILS 0.0 K/UL ABS. IMM. GRANS. 0.0 K/UL RBC COMMENTS 1+ANISOCYTO SIS RBC COMMENTS 1+TARGET CELLS PLATELET ESTIMATE ADEQUATE DF MANUALURIC ACID Col lection Time: 04/06/19 5:18 AMResult Value Ref Range Uric acid 2.6 (L) 3.5 - 7.2 mg /dLGLUCOSE, POC Collection Time: 04/06/19 6:26 AMResult Value Ref Range Glucose, b edside 89 65 - 110 MG/DLGLUCOSE, POC Collection Time: 04/06/19 7:07 AMResult Value Ref Range Glucose, bedside 86 65 - 110 MG/DLABG:No results for input(s): PH, PC O2, PO2, HCO3, FIO2 in the last 72 hours.Recent Glucose Results:Lab Results Component Value Date/Time GLU 82 04/06/2019 05:18 AM GLUCPOC 86 04/06/2019 07:07 AM GLUCPOC 89 04/06/2019 06:26 AM GLUCPOC 106 04/06/2019 12:31 AM@[email or web address] ION@[email or web address] Micro Results Procedure Component Value Units Date/Time CULTURE, BLOOD [[id number]] Collected: 03/25/19 0255 Order Status: Completed Specimen: Bloo d Updated: 03/30/19620 Special Requests: NO SPECIAL REQUESTS Culture result: NO GROWTH 5 DAYS CULTURE, BLOOD [[id number]] Collected: 03/25/19309 Order Status: Completed Specimen: Blood Updated: 03/30/19620 Special Requests: NO SPEC IAL REQUESTS Culture result: NO GROWTH 5 DAYSImages:[email or web address] Abd (kub)Res ult Date: 04/05/2019XR ABD (KUB) CLINICAL INDICATION PROVIDED:. "assess J tube pos ition."TECHNIQUE.: An initial AP image of the abdomen was acquired. Additional APimage s of the abdomen were acquired after the hand-injection of a small volumeof radio paque contrast by the patient's nurse into the patient's J-tube.COMPARISON:. 2018. FINDINGS:. The tip of the 2 projects over the midabdomen, at the level of the mid jejunum. Post injection images demonstrateopacification of loops of mid small bowel. There is no extraluminal contrastappreciated. A large volume of s tool projects over the distal colon/rectum.Densities project over the lower lungs, right greater than left. Considercorrelation with chest radiograp hs.IMPRESSION:. Injected radiopaque contrast appears to be contained within thelumen of the mid small bowel. There is no evidence of extraluminal contrast.Additional find ings and recommendations as above.Xr Abd (kub)Result Date: 04/02/2019KUB 2 view(s ) History: Evaluate J-tube. Comparison: 11/22/2018. There is a newJ-tube overlyin g the mid abdomen with kinking involving its superior andinferior portion overlying t he mid abdomen. These findings were discussed withmale nurse Jacquelyn at 3:40 PM today.. Th ere is mild ileus of the small bowel butthere is no evidence of obstruction, radiopaqu e gallstones, or left kidneystones or an appendicolith. There are possible right kidney stones. Absence ofan appendicolith it does not exclude appendicitis. CT is sug gested if clinicallyindicated. Old rib fractures are noted.IMPRESSION: Kinking of J-tube in 2 locations. Possible right kidney stonesIleus.Ir Picc Insert Wo Por t Over 5 Years Wo ImgResult Date: 04/01/2019IR PICC INSERT WO PORT OVER 5 YEARS WO IMG CLINICAL INDICATION PROVIDED.:"midline." Medical necessity f or vascular access. PROCEDURE: After beinginformed of the risks, benefits, po tential alternatives to the procedure theinformed consent was obtained. The pa tient was placed on the table the supineposition. The right upper extremit y was prepped and draped in the normal sterilefashion. Ultrasound interrogation was performed of the right upper extremity.Images were obtained. A locat ion was chosen over the right brachial vein abovethe antecubital fossa. Lidocaine so lution was used to anesthetize the scan.Access was gained under ultrasound guidance using a 21-gauge thin-walled needle.A 0.018 a wire was advanced under fluoroscopic guidance into the right axillaryvein. The needle was exchanged o lani a wire for the midline dilator and sheath.The dilator and wire were removed leaving the sheath in situ. Through the sheatha 5 Congolese double-lumen 20 cm midl ine catheter was placed. The peel-away sheathwas removed. The catheter was sewn into position using 2-0 silk sutures. Thepatient tolerated the procedure. Ther e were no complications at the time of theprocedure. FINDINGS: Ultrasound inter rogation revealed a widely patent brachialvein above the antecubital fossa . A 5 Congolese dual-lumen 20 cm midline catheterwas placed. The tip was placed i n good position over the right axillary vein.IMPRESSION: 5 Congolese dual-lumen mid line catheter placed with tip positioned overthe right axillary vein.Ct Chest Wo ContResult Date: 03/14/2019History: Respiratory difficulty. FINDINGS: CT sca nning of the chest wasperformed helically from lung apices to the upper abdomen wi thout intravenouscontrast dural. Sagittal and coronal reconstructed images are submitt ed.Scanning was performed utilizing dose lowering techniques and is compared to t [facility]. Evaluation of thoracic vascular structures is limitedw ithout intravenous contrast material. There is, however, no definite CTevidence of d issection or focal aneurysmal dilatation. Some peripheralcalcification is noted. T here is no evidence of any pathologically enlargedlymph node within the visualized portions of the mediastinum or axillae. Somenonpathologically enlarged lymph nod es are seen. Again noted is elevation of theleft hemidiaphragm. A left small pleu ral effusion is noted as well asatelectatic change at the left lung base. Patchy opa [place] at the right lung baseis compatible with a right basilar infiltrate. There is tamie e patchy opacitywithin the right middle lobe as well. The right basal infiltrate is g reater insize than that seen previously. The pleural effusion is smaller. The rightmi ddle lobe infiltrate is similar. Limited evaluation of upper abdominalstructures reveals a tube within the stomach directed toward the duodenum.Diffuse hypertrophic degenerative changes are noted of the thoracic spine. Thereis again noted to b e shift of mediastinal structures to the right.IMPRESSION: Worsening right lower lobe infiltrate. Slight worsening of the rightmiddle lobe infiltrate. Improved le ft lung.Xr Chest PortResult Date: 04/06/2019CHEST one view HISTORY: Pneumo freddy. COMPARISON: 03/25/2019. There is a poorinspiratory effort which compromises this interpretation. A repeat study issuggested. There is discoid atelectasi s and/or subsegmental left lower lobeatelectasis along the left hemidiaph ragm. .There is no gross evidence ofcongestion, effusions or pneumothorax. IMPRESSION: Possible left lower lobe atelectasis. Poor inspiratory effort.Xr Chest PortResult Date: 03/25/2019CHEST one view HISTORY: Fever. Reflux. Gastrostomy . COMPARISON: 03/11/2019.There is a poor inspiratory effort which compromises thi s interpretation. Arepeat study is suggested. There is discoid atelectasis and/or lef t lower lobeinfiltrate.There is no gross evidence of congestion, other infiltrate s,effusions or pneumothorax.IMPRESSION: Possible left lower lobe infiltrate. Poo r inspiratory effort.Xr Chest PortResult Date: 03/11/2019CHEST one view HISTORY: Fever. COPD. Reflux. COMPARISON: 02/12/2019. Anadditional view was obtained. A tubula r structure overlies the stomach andmidabdomen with some gastric distenti on and elevation of the left hemidiaphragm.There is a poor inspirator y effort which compromises this interpretation. Arepeat study is suggest ed. .There is no gross evidence of congestion,infiltrates, effusions or pne umothorax. Old rib fractures are noted.IMPRESSION: No evidence of acute c ardiopulmonary disease. Poor inspiratoryeffort. Gastric distention.Me dications:Current Facility-Administered MedicationsMedication Dose Route Frequen cy potassium, sodium phosphates (NEUTRA-PHOS) packet 1 Packet 1 Packet Per GTube DAILY white petrolatum (VASELINE) ointment Topical DAILY acetylcysteine (MUCOMYST) 100 mg/mL (10 %) nebulizer solution 400 mg 4 mLInhalation BID RT sodium chloride (NS) flush 5-10 mL 5-10 mL IntraVENous PRN acetaminophen (TYLENOL) solution 650 mg 650 mg Per G Tube Q4H PRN cinacalcet (SENSIPAR) tablet 60 mg 60 m g Oral DAILY [Held by provider] heparin (porcine) injection 5,000 Units 5,000 U nitsSubCUTAneous Q12H lamoTRIgine (LaMICtal) tablet 50 mg 50 mg Per G Tube BID valp roic acid (as sodium salt) (DEPAKENE) 250 mg/5 mL (5 mL) oral solution 750mg 750 mg Per G Tube Q12H multivit-folic acid-herbal 275 (WELLESSE PLUS) oral liq uid 30 mL 30 mL Per GTube DAILY ALPRAZolam (XANAX) tablet 0.25 mg 0.25 mg Per G Tu be QPM albuterol-ipratropium (DUO-NEB) 2.5 MG-0.5 MG/3 ML 3 mL Nebulization Q6H RT budesonide (PULMICORT) 500 mcg/2 ml nebulizer suspension 500 mcg Nebulizati onBID RTActive Problems: Acute hypoxemic respiratory failure (HCC) (03/25/2019)As sessment:1. ACUTE HYPERCAPNIC AND HYPOXIC RESPIRATORY FAILURE2. SEVER COPD STAB LE 3. ASPIRATION PNEUMONIA 4. SMALL ATELECTASIS L L L5. FRACTURED P E G6. PARKINSONISM7. SEVERE MENTAL RETARDATION8. KYPHOSIS9. HYPOVENTILATIO N 10. METABOLIC ENCEPHALOPATHY FASGRFLQC38. P EG TUB IS WORKING WELL PER DR Susy RAMOS GI Plan:1. TOLERATING P E G FEEDING2. CHANGE LOW FOLW O2 4 L N C DAY TIME AT NIGHT BIPAP 3. AGREE WITH I V CEFEPIME AND VANCOMYCIN4. D/C SOLUMEDROL 5. DUO NEB QID6. I V FLUIDS7. CHEST PT 8. RESPIRATORY STA TUS IS IMPROVED CONT SAME TREATMENT Krystian Monae MD F.Jenn.C.P.April 06 1911:15 AM Name Value Range Interpretation Code Description Data [facility] rce(s) Supporting Document(s ) ID Date Data Source [id number] 04/06/2019 11:17:57 AM [facility] YUAN completed and faxed to [place], paper chart completed for transfer. Name Value Range Interpretation Code Description Data [facility] rce(s) Supporting Document(s ) ID Date Data Source [id number] 04/06/2019 10:13:48 AM [facility] Progress NotePatient: Evelio Carlin Sex: male DOA: 03/25/2019Date of : 1950 Age: 68 y.o. LOS: 12 daysThis is medicine coverage for dr Odonnell e:Patient was seen earlier today. Pt is awake/ on bipap/ hemodynamically stable. According to GI pt has functioning PEJ. Pt will be discharged to snf.No fever/ chil ls/ sob/ cp/ n/ v/ d.Pt is seen fotAcute on chronic hypoxemic resp failure, hypercap neicAspirationS/p pej placementCopdLeukocytosisMental retardat iongerdObjective:Visit VitalsBP 127/57 (BP 1 Location: Left arm, BP Patient Position: Head of bed elevated(Comment degrees))Pulse 61Temp 97.6 F (36.4 C)Resp 20Wt 47.1 k g (103 lb 14.4 oz)SpO2 99%BMI 19.00 kg/m Physical Exam: General: WD, WN . awake, cooperative, no acute distress.on bipap HEENT: NC, Atraumatic. PERRLA, anicteric sclerae.pink conjunctiva Lungs: B/l ae. No Wheezing/R honchi/Rales. Heart: Regular rhythm, No murmur, No Rubs, No Gallops. s1, s2 Abdomen: Soft, Non distended, Non tender. +Bowel sounds.pos peg/pej Extremities: No c/c/e. Psych: Not anxious or agitated. Neurologic : No acute neurological deficit. Skin : No rash Neck : Supple, no jvd/ bruitIntake and Output:Intake/Output Sum jerry (Last 24 hours) at 04/06/2019 1001Last data filed at 04/06/2019 0127Gross per 2 4 hourIntake 0 mlOutput 400 mlNet -400 mlLab/Data Reviewed:Recent Labs 09164 534 715WBC 11.3* 9.1 9.6HGB 13.4* 12.5* 12.5*PLT 349 335 237B UN 17 12 10CREA 0.52* 0.38* 0.39*NA 140 137 133*CL 98 96* 93*K 4.6 4.4 4.6MG 2.2 2.1 1.9CA 10.6* 9.6 10.0Special Requests:Date Value Ref Range Uqfnsa1603/25/2019 NO SPEC IAL REQUESTS FinalCulture result:Date Value Ref Range Rlozth5903/25/2019 NO GROWTH 5 D AYS FinalXR Results (most recent):Results from Hospital Encounter encounter on 03/03XR CHEST PORT Narrative CHEST one viewHISTORY: Pneumonia.COMPARISON: 03/25.There is a poor inspiratory effort which compromises this interpretation. A repeat study is suggested. There is discoid atelectasis and/or subsegmental leftlowe r lobe atelectasis along the left hemidiaphragm..There is no gross evidenc e of congestion, effusions or pneumothorax. Impression IMPRESSION: Possible left low er lobe atelectasis. Poor inspiratoryeffort. CXRMedications Reviewed:Current Faci lity-Administered MedicationsMedication Dose Route Frequency potassium, sodium phosp hates (NEUTRA-PHOS) packet 1 Packet 1 Packet Per GTube DAILY white petrolatum (VASEL INE) ointment Topical DAILY acetylcysteine (MUCOMYST) 100 mg/mL (10 %) nebulizer so lution 400 mg 4 mLInhalation BID RT sodium chloride (NS) flush 5-10 mL 5-10 mL Int raVENous PRN acetaminophen (TYLENOL) solution 650 mg 650 mg Per G Tube Q4H P RN cinacalcet (SENSIPAR) tablet 60 mg 60 mg Oral DAILY [Held by provider] heparin ( porcine) injection 5,000 Units 5,000 UnitsSubCUTAneous Q12H lamoTRIgine (Carver ICtal) tablet 50 mg 50 mg Per G Tube BID valproic acid (as sodium salt) (DEPAKENE ) 250 mg/5 mL (5 mL) oral solution 750mg 750 mg Per G Tube Q12H multivit-folic acid- herbal 275 (WELLESSE PLUS) oral liquid 30 mL 30 mL Per GTube DAILY ALPRAZolam (XANAX ) tablet 0.25 mg 0.25 mg Per G Tube QPM albuterol-ipratropium (DUO-NEB) 2.5 MG-0 .5 MG/3 ML 3 mL Nebulization Q6H RT budesonide (PULMICORT) 500 mcg/2 ml nebu lizer suspension 500 mcg NebulizationBID RTAssessmentActive Problems: Acute hypo xemic respiratory failure (HCC) (03/25/2019)leukocytosisAnemiaHypercalce miaDysphagia/ peg/pejAcute on chronic resp failure, hypoxemic, hypercapneicAspirati on pneumoniaMental retardationCopdParkinson'sH/o PEgerdschi zophreniaPlan1. Continue o22. bipap3. Bd4. Steroids5. D/c planning , for today.6. [facility].My assessment, plan of care, findings, medi cations, side effects etc werediscussed with:[X]nursing [ ]PT/OT[ ]respiratory therapy [ ][ ]family [ ]Isa Lopez, MDDecember 201810:01 AM Name Value Range Interpretation Code Description Data [facility] rce(s) Supporting Document(s ) ID Date Data Source [id number] 04/06/2019 09:33:33 AM EST [facility] Bella Carlin68 y.o.Adm it Date: 03/25/2019Active Problems: Acute hypoxemic respiratory failure (HCC) (02/2019)Subjective:Awake, no distressPertinent items are noted in the History of Present Illness.Objective:Visit VitalsBP 127/57 (BP 1 Location: Left arm , BP Patient Position: Head of bed elevated(Comment degrees))Pulse 61Temp 9 7.6 F (36.4 C)Resp 20Wt 47.1 kg (103 lb 14.4 oz)SpO2 99%BMI 19.00 kg/m Intake an d Output:Date 04/05/19 07 - 04/06/19 0659 04/06/19 07 - 04/07/19 0659Shift 07- 1858 4062-9397 24 Hour Total 7330-1163 4639-4605 24 Hour TotalINTAKENG/GT 0 0 0 Water Flush Volume (mL) (PEG/Gastrostomy Tube) 0 0 0Shift Total(mL/kg) 0(0) 0(0) 0(0)OUTPUTUrine(mL/kg/hr) 400(0.7) 400(0.4) Urine Voided 400 400Shift Total(mL/kg) 400(8.5) 400(8.5)NET 0 -400 -400Weight (kg) 47.7 47.1 47.1 47.1 47.1 47.1Medications Reviewed:Current Facility-Administered MedicationsMedication Dose Route Frequen cy Provider Last Rate Last Dose potassium, sodium phosphates (NEUTRA-PHOS) packet 1 Packet 1 Packet Per GTube DAILY Radha León MD 1 Packet at 04/06/19 0828 w jaz petrolatum (VASELINE) ointment Topical DAILY Mili Hills DO 5 gat 9 1101 acetylcysteine (MUCOMYST) 100 mg/mL (10 %) nebulizer solution 400 mg 4 mLIn halation BID RT Mili Hills DO 400 mg at 04/06/19 0755 sodium chloride (NS) f lush 5-10 mL 5-10 mL IntraVENous PRN Jessie Neumnan MD 10 mL at 03/16 06/03 0620 acetaminophen (TYLENOL) solution 650 mg 650 mg Per G Tube Q4H PRN Mili Hills DO cinacalcet (SENSIPAR) tablet 60 mg 60 mg Oral DAILY Mili Hills DO 60mg at 04/06/19 0828 [Held by provider] heparin (porcine) injection 5,000 Units 5,000 UnitsSubCUTAneous Q12H Mili Hills DO Stopped at 03/30/19 0725 lamoTRIgine (LaMICtal) tablet 50 mg 50 mg Per G Tube BID Mili Hills DO50 mg at 04/06/19 0828 valproic acid (as sodium salt) (DEPAKENE) 250 mg/5 mL (5 mL) oral solution 750mg 750 mg Per G Tube Q12H Mili Hills DO 750 mg at 04/06/19 0828 multivit-folic acid-herbal 275 (WELLESSE PLUS) oral liquid 30 mL 30 mL Per GTube DAILY Mili Hills DO 30 mL at 04/04/19 1255 ALPRAZolam (XANAX) tab let 0.25 mg 0.25 mg Per G Tube QPM Mili Hills DO0.25 mg at 04/05/19 1758 alb uterol-ipratropium (DUO-NEB) 2.5 MG-0.5 MG/3 ML 3 mL Nebulization Q6H RTMaryann Hills DO 3 mL at 04/06/19 0755 budesonide (PULMICORT) 500 mcg/2 ml nebulizer suspe nsion 500 mcg NebulizationBID RT Mili Hills DO 500 mcg at 04/06/19 0755Ph ysical Exam:Physical Exam:Non verbalS1 s2 RRRResp: clearAbd: softExt: no edemaData Review:Recent Results (from the past 24 hour(s))GLUCOSE, POC Collection Time: 11:54 AMResult Value Ref Range Glucose, bedside 114 (H) 65 - 110 MG/DLG LUCOSE, POC Collection Time: 04/05/19 4:14 PMResult Value Ref Range Glucose, bedsid e 114 (H) 65 - 110 MG/DLGLUCOSE, POC Collection Time: 04/06/19 12:31 AMResult Value Ref Range Glucose, bedside 106 65 - 110 MG/DLRENAL FUNCTION PANEL Collection Time: 04/06/19 5:18 AMResult Value Ref Range Sodium 140 136 - 145 mmol/L Potass ium 4.6 3.5 - 5.1 mmol/L Chloride 98 98 - 107 mmol/L CO2 37 (H) 21 - 32 mmol/L Anion g ap 9 (L) 10 - 20 mmol/L Glucose 82 74 - 106 mg/dL BUN 17 7 - 18 mg/dL Creatinine 0.5 2 (L) 0.70 - 1.30 mg/dL GFR est AA >60 >60 ml/min/1.73m2 GFR est non-AA >60 >60 ml/ min/1.73m2 Calcium 10.6 (H) 8.5 - 10.1 mg/dL Phosphorus 2.8 2.5 - 4.9 mg/dL Albumin 2 .5 (L) 3.5 - 4.7 g/dLMAGNESIUM Collection Time: 04/06/19 5:18 AMResult Value Ref Range Magnesium 2.2 1.6 - 2.6 mg/dLCBC WITH AUTOMATED DIFF Collection Time: 04/06/19 5:18 AMResult Value Ref Range WBC 11.3 (H) 4.8 - 10.6 K/uL RBC 4.29 (L) 4.70 - 6.00 M/uL HGB 13.4 (L) 14.0 - 18.0 g/dL HCT 42.5 42.0 - 52.0 % MCV 99.1 (H) 81.0 - 94.0 F L MCH 31.2 27.0 - 35.0 PG MCHC 31.5 30.7 - 37.3 g/dL RDW 17.0 (H) 11.5 - 14.0 % JOCELYN TELET 349 130 - 400 K/uL MPV 10.1 9.2 - 11.8 FL NRBC 0.0 0 PER 100 WBC ABSOLUTE NRBC 0.00 0.0 - 0.01 K/uL NEUTROPHILS 46 (L) 48.0 - 72.0 % LYMPHOCYTES 36 18.0 - 40.0 % MO NOCYTES 7 2.0 - 12.0 % EOSINOPHILS 2 0.0 - 7.0 % BASOPHILS 0 0.0 - 3.0 % METAMYELOC YTES 1 (H) 0 % MYELOCYTES 8 (H) 0 % IMMATURE GRANULOCYTES 0 % ABS. NEUTROPHILS 6.2 2. 3 - 7.6 K/UL ABS. LYMPHOCYTES 4.1 0.9 - 4.2 K/UL ABS. MONOCYTES 0.8 0.1 - 1.7 K/UL A BS. EOSINOPHILS 0.2 0.0 - 1.0 K/UL ABS. BASOPHILS 0.0 K/UL ABS. IMM. GRANS. 0.0 K/UL RBC COMMENTS 1+ANISOCYTOSIS RBC COMMENTS 1+TARGET CELLS PLATELET ESTIMATE ADEQUAT E DF MANUALURIC ACID Collection Time: 04/06/19 5:18 AMResult Value Ref Range Uric acid 2.6 (L) 3.5 - 7.2 mg/dLGLUCOSE, POC Collection Time: 04/06/19 6:26 AMResult Value Ref Range Glucose, bedside 89 65 - 110 MG/DLGLUCOSE, POC Collection Time: 04/06 7:07 AMResult Value Ref Range Glucose, bedside 86 65 - 110 MG/DLImpression:Acti ve Hospital Problems Diagnosis Date Noted Acute hypoxemic respiratory failure (HCC ) 03/25/2019 HyponatremiaPlan:DC 1/2 NSDC free water flushesPEG to be flushed with NSLabs better with above Jana Frankel, Pat 2018 Name Value Range Interpretation Code Description Data [facility] rce(s) Supporting Document(s ) ID Date Data Source [id number] 04/06/2019 08:25:54 AM EST [facility] CHEST one viewHISTORY: Pneumonia.COMPARI SON: 03/25/2019.There is a poor inspiratory effort which compromises this interpreta tion. Arepeat study is suggested. There is discoid atelectasis and/or subsegmental leftlower lobe atelectasis along the left hemidiaphragm..There is no gross evidenc e of congestion, effusions or pneumothorax.IMPRESSION: Possible left l ower lobe atelectasis. Poor inspiratory effort. Signing date/time: 04/06/2019 8:25 AMSigned by: LIONEL LOCKHART Name Value Range Interpretation Code Description Data [facility] rce(s) Supporting Document(s ) ID Date Data Source [id number] 04/06/2019 07:27:48 AM EST [facility] Review BIPAP settings, alarms and skin a dhesive With next shift RT Gill Ofelia Name Value Range Interpretation Code Description Data [facility] rce(s) Supporting Document(s ) ID Date Data Source [id number] 04/06/2019 07:19:19 AM EST [facility] Name Value Range Interpretation Description Data Sup porting Code Source(s) Document(s ) Glucose 86 MG/DL 65-110 BSCHS - Good [Mass/volume] Taoist in Blood by Hospital Automated test strip ID Date Data Source [id number] 04/06/2019 06:37:49 AM EST [facility] Bedside and Verbal shift change report carol pham to Joao Calderon RN (oncoming nurse) byGaston Starr RN (offgoing nurse). Report included the following information SBAR,Kardex and MAR. Name Value Range Interpretation Code Description Data [facility]ett rce(s) Supporting Document(s ) ID Date Data Source [id number] 04/06/2019 06:57:52 AM EST [facility] Name Value Range Interpretation Description Data Sup porting Code Source(s) Document(s ) Glucose 89 MG/DL 65-110 BSCHS - Good [Mass/volume] Taoist in Blood by [facility] Automated test strip ID Date Data Source [id number] 04/06/2019 08:54:10 AM EST [facility] Name Value Range Interpretation Description Data Sup porting Code Source(s) Document(s ) Leukocytes 11.3 4.8-10.6 Above high normal [facility] - [#/volume] in K/uL Good Blood by [facility] Erythrocytes 4.29 4.70-6.0 Below low normal [facility] - [#/volume] in M/uL 0 Good Blood by [facility] Hemoglobin 13.4 14.0-18. Below low normal [facility] - [Mass/volume] in g/dL 0 Good Blood [facility] Hematocrit 42.5 % 42.0-52. [facility] - [Volume 0 Good Fraction] of Taoist Blood by [facility] Automated count Erythrocyte mean 99.1 FL 81.0-94. Above high normal [facility] - corpuscular 0 Good volume [Entitic Taoist volume] by Hospital Automated count Erythrocyte mean 31.2 PG 27.0-35. [facility] - corpuscular 0 Good hemoglobin Taoist [Entitic mass] Hospital by Automated count Erythrocyte mean 31.5 30.7-37. [facility] - corpuscular g/dL 3 Good hemoglobin [facility] concentration Hospital [Mass/volume] by Automated count Erythrocyte 17.0 % 11.5-14. Above high normal [facility] - distribution 0 Good width [Ratio] by [facility] Automated count Hospital Platelets 349 K/uL 130-400 [facility] - [#/volume] in Good Blood by [facility] Automated count Hospital Platelet mean 10.1 FL 9.2-11.8 [facility] - volume [Entitic Good volume] in Blood [facility]ist by Automated Hospital count Nucleated 0.0 PER 0 [facility] - erythrocytes/100 100 WBC Good leukocytes Taoist [Ratio] in Blood Hospital Nucleated 0.00 0.0-0.01 [facility] - erythrocytes K/uL Good [#/volume] in [facility] Segmented 46 % 48.0-72. Below low normal [facility] - neutrophils/100 0 Good leukocytes in [facility] Lymphocytes/100 36 % 18.0-40. [facility] - leukocytes in 0 [facility] Blood [facility] Monocytes/100 7 % 2.0-12.0 [facility] - leukocytes in [facility] Blood [facility] Eosinophils/100 2 % 0.0-7.0 [facility] - leukocytes in [facility] Blood [facility] Basophils/100 0 % 0.0-3.0 [facility] - leukocytes in [facility] Blood [facility] Metamyelocytes/1 1 % 0 Above high normal [facility] - 00 leukocytes in [facility] Blood by [facility] count Hospital Myelocytes/100 8 % 0 Above high normal [facility] - leukocytes in Good Blood by [facility] count [facility] Immature 0 % [facility] - granulocytes/100 Good leukocytes in [facility] by Hospital Automated count Segmented 6.2 K/UL 2.3-7.6 [facility] - neutrophils Good [#/volume] in [facility] Lymphocytes 4.1 K/UL 0.9-4.2 [facility] - [#/volume] in [facility] Blood [facility] Monocytes 0.8 K/UL 0.1-1.7 [facility] - [#/volume] in [facility] Eosinophils 0.2 K/UL 0.0-1.0 [facility] - [#/volume] in [facility] Basophils 0.0 K/UL [facility] - [#/volume] in [facility] Immature 0.0 K/UL [facility] - granulocytes Good [#/volume] in [facility] Blood by Hospital Automated count 1+ANISOCYTOSIS1+TARGET CELLS Platelet adequacy [Presence] in Blood by [facility] Light microscopy Differential cell count method - Blood [facility] ID Date Data Source [id number] 04/06/2019 07:39:14 AM EST [facility] Name Value Range Interpretation Description Data Sup porting Code Source(s) Document(s ) Urate 2.6 mg/dL 3.5-7.2 Below low normal [facility] - Good [Mass/volu Taoist me] in Hospital Serum or Plasma ID Date Data Source [id number] 04/06/2019 07:39:14 AM EST [facility] Name Value Range Interpretation Description Data Sup porting Code Source(s) Document(s ) Magnesium 2.2 mg/dL 1.6-2.6 [facility] - Good [Mass/volume] Taoist in Serum or Hospital Plasma ID Date Data Source [id number] 04/06/2019 07:39:14 AM EST [facility] Name Value Range Interpretation Description Data Sup porting Code Source(s) Document(s ) Sodium 140 136-145 [facility] - Good [Moles/volume] mmol/L Taoist in Serum or Hospital Plasma Potassium 4.6 3.5-5.1 [facility] - Good [Moles/volume] mmol/L Taoist in Serum or Hospital Plasma Chloride 98 98-107 [facility] - Good [Moles/volume] mmol/L Taoist in Serum or Hospital Plasma Carbon 37 21-32 Above high normal [facility] - Good dioxide, total mmol/L Taoist [Moles/volume] Hospital in Serum or Plasma Anion gap in 9 mmol/L 10-20 Below low normal [facility] - Go od Serum or Taoist Plasma Hospital Glucose 82 mg/dL 74-106 [facility] - Good [Mass/volume] Taoist in Serum or Hospital Plasma Urea nitrogen 17 mg/dL 7-18 [facility] - Good [Mass/volume] Taoist in Serum or Hospital Plasma Creatinine 0.52 0.70-1.3 Below low normal [facility] - Good [Mass/volume] mg/dL 0 Taoist in Serum or Hospital Plasma Glomerular >60 [facility] - Good filtration Taoist rate/1.73 sq M Hospital predicted among blacks [Volume Rate/Area] in Serum or Plasma by Creatinine-bas ed formula (MDRD) Glomerular >60 [facility] - Good filtration Taoist rate/1.73 sq M Hospital predicted among non-blacks [Volume Rate/Area] in Serum or Plasma by Creatinine-bas ed formula (MDRD) Calcium 10.6 8.5-10.1 Above high normal [facility] - Good [Mass/volume] mg/dL Taoist in Serum or Hospital Plasma Phosphate 2.8 2.5-4.9 [facility] - Good [Mass/volume] mg/dL Taoist in Serum or Hospital Plasma Albumin 2.5 g/dL 3.5-4.7 Below low normal [facility] - Good [Mass/volume] Taoist in Serum or Hospital Plasma by Bromocresol purple (BCP) dye binding method ID Date Data Source [id number] 04/06/2019 01:26:25 AM EST [facility] - Good [facility] Progressing slowly Name Value Range Interpretation Code Description Data Harriett rce(s) Supporting Document(s ) ID Date Data Source [id number] 04/06/2019 12:50:00 AM EST [facility] - G ood [facility] Name Value Range Interpretation Description Data Sup porting Code Source(s) Document(s ) Glucose 106 MG/DL 65-110 [facility] - Good [Mass/volume] Taoist in Blood by Hospital Automated test strip ID Date Data Source [id number] 04/05/2019 08:17:32 PM EST [facility] - Good [facility] GI PROGRESS NOTENAME: Evelio Shukla hbeinDOB: 1950MRN: [id number]:Tolerating tube feeds through PEG/PEJ tube. Distal tip is in the small bowel.Tube feeds running at 50 cc per hour without a problem.Objective:XR ABD (KUB) CLINICAL INDICATION PROVIDED:. "as sess J tube position." TECHNIQUE.: An initial AP image of the abdomen was acqu ired. Additional APimages of the abdomen were acquired after the hand-injection of a s mall volumeof radiopaque contrast by the patient's nurse into the patient's J-tub e. COMPARISON:. 04/02/2019. FINDINGS:.The tip of the 2 projects over the mid abdomen, at the level of the mid jejunum.Post injection images demonstrate opacificati on of loops of mid small bowel.There is no extraluminal contrast appreciated. A lar ge volume of stool projects over the distal colon/rectum. Densities projectover the lower lungs, right greater than left. Consider correlation with chestradiograp hs. IMPRESSIONIMPRESSION:.Injected radiopaque contrast appears to be contained within the lumen of the midsmall bowel. There is no evidence of extraluminal contrast. Addit ional findingsand recommendations as above. VITALS:Last 24hrs VS reviewed since devin r progress note. Most recent are:Visit VitalsBP (!) 70/47 (BP 1 Location: Left arm, BP Patient Position: Lying right side)Pulse (!) 103Temp 98.4 F (36.9 C) Resp 22Wt 47.7 kg (105 lb 1.6 oz)SpO2 100%BMI 19.22 kg/m Intake/Output Summary (Last 2 4 hours) at 04/05/2019 2012Last data filed at 04/05/2019 1515Gross per 24 hourIntake 9 0 mlOutput 1800 mlNet -1710 mlPHYSICAL EXAM:Lungs: CTA Bilaterally.H eart: Regular rhythm,Abdomen: Soft, Non distended, Non tender. (+)Bowel sounds, no HSMLab Data Reviewed:Recent Labs 04/04/1907WBC 9.1 9.6HGB 12.5* 12.5*HCT 38.7* 39.0*PLT 335 237Recent Labs 04/04/1907NA 137 13 3*K 4.4 4.6CL 96* 93*CO2 36* 38*BUN 12 10CREA 0.38* 0.39*GLU 126* 97PHOS 3.3 2.8CA 9.6 10.0Recent Labs 534 715ALB 2.3* 2.3* Pati ent Active Problem ListDiagnosis Code Parae sophageal hiatal hernia K44.9 COPD (chronic obstructive pulmonary disease) ([facility]) J44 .9 Acute respiratory distress R06.03 Pneumonia J18.9 COPD exacerbation ([facility]) J44.1 Sepsis due to undetermined organism ([facility]) A41.9 Generalized anxiety disorde r F41.1 Acute respiratory failure with hypoxia ([facility]) J96.01 Pneumonia involvin g right lung J18.9 Hyponatremia E87.1 SOB (shortness of breath) R06.02 Pressure i njury of right heel, stage [address]) L89.612 Leg wound, right, initial encounter S81. 801A Acute hypoxemic respiratory failure ([facility]) J96.01Assessment: Feeding tube in correct location and functioning wellPlan: Continue feedings at 50 cc per hour.No f urther changes to tube as it isfunctioning well.Signed By: Nikos Martinez MD 04/05 8:12 PM Name Value Range Interpretation Code Description Data [facility] Supporting Document(s ) ID Date Data Source [id number] 04/05/2019 08:15:32 PM [facility] Bedside and Verbal shift change report g ankit to Beth Starr (oncoming nurse) Lakisha Mcdonald (offgoing nurse). Report included t he following information SBAR,Kardex and MAR. Name Value Range Interpretation Code Description Data [facility] Supporting Document(s ) ID Date Data Source [id number] 04/05/2019 04:26:46 PM [facility] Progress NoteMID-[facility] ,[facility].Krystian Monae MD., F.C.C.P.Stella Hamilton MD., F.C.C.P. 9W 1 [facility] [address] [place] [address] [place], [place] [id number] [phone]: Evelio Carlin Sex: male DOA: 03/25/2019D ate of : 1950 Age: 68 y.o. LOS: LOS: 11 daysSubjective:Mr. Guillermo buck is a 68 y.o. year old male who is being seen for ACUTEHYPERCAPNIC AND HYPO XIC RESPIRATORY FAILURE . HE IS FWEARING BIPAP NOW PVG2017 %.Mr. Carlin IS AWAKE ,MENTALLY RETARDED , AWAITING SURGICAL REPLACEMENTJ TUBE CURRENT ONE HAVE FRACTURE .GASTROGAFFIN STUDY VIA P E G SHOWS NO EXTRAVASATION OF DYE PEG TUBE OPENED UP BY G I , FEEDING STARTED . PATIENT IS COMFORTABLE .Mr. Carlos rivera is a 68 y.o. year old male who is being seen forACUTE RESPIRATORY FAIL URE .PATIENT SENT BACK YESTERDAY WITHOUT REPLACING FRACTURED P E G TBE BYANAE STHESIA AND G I CONCERN OF ACUTE RESPIRATORY FAILURE . HE HAVE SEVERE CO PD , HE IS CO2 RETAINER BUT MORE AWAKE AND ALERT . HE TOLERATED PICC LINE IN SERTION YESTERDAY. . Evelio Carlin is a 68 y.o. male with history of COPD, GERD,hyperparathyroidism, Parkinsonism, pneumonia, schizophrenia, and pulmonaryemboli with a surgical history of gastrostomy who [facility] via emergency medical services sent in from long-term for hypoxiaand possible pneumonia. The patient has multiple incidences of pneumonia in themest. The patient is nonverbal at baseline and cannot provide any history ofreview of systems at the time. PATIENT HAVE SEVERE CEREBRAL PALSY , MENTAL RETARDATION AND IS NON VERBAL .NO HX CANNOT BE CONFIRMED FROM PATIENT , CHART IS REVIEWED.MULTIPLE AD MISSIONS FOR ASPIRATION PNEUMONIA , HE IS BED RIDDEN . PATIENTT NOW IS ON BIPAP SUPPORT SPO2 = 96% ON FIO2 65% .PATIENT IS SLIGHTLY MORE AWAKE TODAY AND IS COMFORTABLE SPO2 0N 4 L N C = 92 % HAVE FRACTURED SEGMENT OF PEG TUBE NEAR INSERTION NEEDS REPLACEMENT . Past Medical History Past Medical History :Diagnosis Date Chronic obstructive pulmonary disease (HCC) Diaphragmatic hernia without obstruction and without gangrene GERD (gastroesophageal reflu x disease) Hyperparathyroidism (HCC) Mental retardation Parkinsonism due t o drug (HCC) Pneumonia Psychiatric disorder schizophrenia Pulmonary emb jennyfer (HCC) Schizophrenia (HCC) Past Surgical History Past Surgical His tory:Procedure Laterality Date HX GASTROSTOMY PEG- replaced 11/2018 We were asked to admit for work up and evaluation of the above problems. Soci al History Tobacco Use Smoking status: Never Smoker Smokeless tobacco: Never U sedSubstance Use Topics Alcohol use: No History reviewed. No pertinent family hi story. No Known Allergies Prior to Admission medicationsMedication Sig Star t Date End Date Taking? Authorizing Providerheparin sodium,porcine (HEPARIN, PORCINE,) 5,000 unit/mL injection 1 mL bySubCUTAneous route every twelve (12) h ours every twelve (12) hours. 03/17/19 Mili Hills DOmultivitamin (MULTI-D ELYN, WELLESSE) liqd 5 mL by Per G Tube route daily.03/17/19 Mili Hills DOace taminophen (TYLENOL) 32MG/ML soln solution Take 20.3 mL by mouth every four(4) hour s as needed for Pain or Fever. 03/17/19 Mili Hills DOvalproic acid, as sod ium salt, (DEPAKENE) 250 mg/5 mL (5 mL) soln oral mg by Per G Tube route every twelve (12) hours. Provider, Edieacetylcysteine (MUCOMYST) 100 mg/mL (10 %) nebulizer solution Take 4 mL byinhalation two (2) times a day. Provider, Edieclorazepate (TRANXENE) 3.75 mg tablet 1 Tab by Per G Tube route nightly. MaxDaily Amount: 3.75 mg. 12/30/18 Mili Hills DOcinacalcet (SENSIPA R) 30 mg tablet Take 2 Tabs by mouth daily.Patient taking differently: 30 mg daily. Via G tube 12/30/18 Mili HillsDOlamoTRIgine (LAMICTAL) 25 mg t ablet 2 Tabs by Per G Tube route two (2) times aday. 12/30/18 Mili Hills DOalbuterol-ipratropium (DUO-NEB) 2.5 mg-0.5 mg/3 ml nebu 3 mL by Nebulizationroute e very six (6) hours. Every 6 hours while awakePatient taking differently: 3 mL by Nebulization route every four (4) hours asneeded. Every 6 hours while awake 12/30 Mili Hills DObudesonide (PULMICORT) 0.5 mg/2 mL nbsp 2 mL by Neb ulization route two (2) timesa day. 12/30/18 Mili Hills, REVIEW OF SYSTEMS : SEVERE MENTAL RETARDATION , CANNOT DO ROS .General: negative for fever, chill s, sweats, weaknessEyes: negative for blurred vision, eye pain, loss of vision, diplop iaEar Nose and Throat: negative for rhinorrhea, pharyngitis, otalgia, tinnit us,speech or swallowing difficultiesRespiratory: negative for c ough, sputum production, SOB, wheezing, DAVALOS,pleuritic painCardiology: negative for chest pain, palpitations, orthopnea, PND, edema,syncopeGastrointestinal: negative for abdominal pain, N/V, dysphagia, change in bowelhabits, bleedingGenitourinary: nega tive for frequency, urgency, dysuria, hematuria, incontinenceMuskuloskeletal : negative for arthralgia, myalgiaHematology: negative for easy bruising, bleeding, ly mphadenopathyDermatological: negative for rash, ulceration, mole change, new lesio nEndocrine: negative for hot flashes or polydipsiaNeurological: negative for hea dache, dizziness, confusion, focal weakness,paresthesia, memory loss, gait disturbancePsychological: negative for anxiety, depression, agitation Object britni:Vital Signs:Patient Vitals for the past 24 hrs: BP Temp Pulse Resp SpO2 [id number] 1550 113/63 97.6 F (36.4 C) 64 20 100 % -04/05/19 1123 136/69 97.4 F (36. 3 C) 67 20 95 % -04/05/19 1005 125/72 - - - - -04/05/19 0752 90/56 96.7 F (35.9 C) 64 20 100 % -04/05/19 0655 - - - - - 47.7 kg (105 lb 1.6 oz)04/05/19 0508 - - - - 96 % -04/05/19 0453 118/66 98.7 F (37.1 C) 95 20 97 % -04/04/19 2346 134/72 - - - - -1 06/05/18 2340 116/84 98 F (36.7 C) 84 20 98 % -04/04/192000 131/84 97.7 F (36.5 C ) 86 20 96 % -Pulse OX:SpO2 Readings from Last 6 Encounters:04/05/19 100%03/17/19 92%02/19/19 96%02/18/19 92%01/24/19 93%12/30/18 96%@LASTSAO2(6)@Physical Exa m: O N BIPPA SPO2 = 100 % General: Alert, cooperative, no distress, appear s stated age. Head: Normocephalic, without obvious abnormali ty, atraumatic. Eyes: Conjunctivae/corneas clear. PERRL, EOMs intact. Nose: Nares normal. No drainage or sinus tenderness Thr oat: Lips, mucosa, and tongue normal Neck: Supple, symmetrical, trachea midline, no adenopathy,thyroid: no enlargement/tenderness/nodules, no carot id bruit and no JVD. Lungs: HAVE GOOD AIR EXCHANGE I BOTH LUNGS , FEW B VIVIAN RALES +to auscultation bilaterally. Chest Wall: No tenderness or deformity . Heart: Regular rate and rhythm, S1, S2 normal, no murmur, click,rub or g allop. Abdomen: Soft, non-tender. Bowel sounds normal. No masses, No organomeg edison. Extremities: Extremities normal, atraumatic, no cyanosis or edema. Pulses: 4+ bilaterally. Skin: Skin color, texture, turgor normal. No rashes or lesions. Neurologic: CNII-XII intact. No focal motor or sensory defici t.Intake and Output:Last three shifts: 04/03 1901 - 04/05 0700In: 1990 [I.V.:600]Out: 2800 [Urine:2800]Lab Results:Recent Results (from the past 24 hour(s))GLUCOSE, POC C ollection Time: 04/04/19 11:33 PMResult Value Ref Range Glucose, bedside 118 (H) 65 - 110 MG/DLRENAL FUNCTION PANEL Collection Time: 04/05/19 5:34 AMResult Value Ref Range Sodium 137 136 - 145 mmol/L Potassium 4.4 3.5 - 5.1 mmol/L Chloride 96 (L) 98 - 107 mmol/L CO2 36 (H) 21 - 32 mmol/L Anion gap 10 10 - 20 mmol/L Glucose 126 (H) 74 - 106 mg/dL BUN 12 7 - 18 mg/dL Creatinine 0.38 (L) 0.70 - 1.30 mg/dL GFR est AA >6 0 >60 ml/min/1.73m2 GFR est non-AA >60 >60 ml/min/1.73m2 Calcium 9.6 8.5 - 10.1 mg/ dL Phosphorus 3.3 2.5 - 4.9 mg/dL Albumin 2.3 (L) 3.5 - 4.7 g/dLMAGNESIUM Collection T jose alejandro: 04/05/19 5:34 AMResult Value Ref Range Magnesium 2.1 1.6 - 2.6 mg/dLCBC WITH AU TOMATED DIFF Collection Time: 04/05/19 5:34 AMResult Value Ref Range WBC 9.1 4.8 - 1 0.6 K/uL RBC 4.02 (L) 4.70 - 6.00 M/uL HGB 12.5 (L) 14.0 - 18.0 g/dL HCT 38.7 (L) 4 2.0 - 52.0 % MCV 96.3 (H) 81.0 - 94.0 FL MCH 31.1 27.0 - 35.0 PG MCHC 32.3 30.7 - 37. 3 g/dL RDW 16.2 (H) 11.5 - 14.0 % PLATELET 335 130 - 400 K/uL MPV 9.6 9.2 - 11.8 FL NRBC 0.0 0 PER 100 WBC ABSOLUTE NRBC 0.00 0.0 - 0.01 K/uL NEUTROPHILS 78 (H) 48.0 - 72.0 % LYMPHOCYTES 17 (L) 18.0 - 40.0 % MONOCYTES 3 2.0 - 12.0 % EOSINOPHILS 0 0 .0 - 7.0 % BASOPHILS 0 0.0 - 3.0 % MYELOCYTES 2 (H) 0 % IMMATURE GRANULOCYTES 0 % ABS. NEUTROPHILS 7.3 2.3 - 7.6 K/UL ABS. LYMPHOCYTES 1.5 0.9 - 4.2 K/UL ABS. MONO CYTES 0.3 0.1 - 1.7 K/UL ABS. EOSINOPHILS 0.0 0.0 - 1.0 K/UL ABS. BASOPHILS 0.0 K/UL A BS. IMM. GRANS. 0.0 K/UL RBC COMMENTS NORMOCYTIC, NORMOCHROMIC PLATELET ESTIMA TE ADEQUATE DF MANUALGLUCOSE, POC Collection Time: 04/05/19 6:22 AMResult Value Ref Range Glucose, bedside 100 65 - 110 MG/DLGLUCOSE, POC Collection Time: 04/05 11:54 AMResult Value Ref Range Glucose, bedside 114 (H) 65 - 110 MG/DLABG:No res ults for input(s): PH, PCO2, PO2, HCO3, FIO2 in the last 72 hours.Recent Glucose Resu lts:Lab ResultsComponent Value Date/Time GLU 126 (H) 04/05/2019 05:34 AM GLUCPOC 114 (H) 04/05/2019 11:54 AM GLUCPOC 100 04/05/2019 06:22 AM GLUCPOC 118 (H) 03/16 11:33 PM@[email or web address]@CULTURESAll [facility] Results Procedure Component Value Units Date/Time CULTURE, BLOOD [[id number]] Col lected: 03/25/19 0255 Order Status: Completed Specimen: Blood Updated: 620 Special Requests: NO SPECIAL REQUESTS Culture result: NO GROWTH 5 DA YS CULTURE, BLOOD [[id number]] Collected: 03/25/19 0310 Order Status: Completed S pecimen: Blood Updated: 03/30/19620 Special Requests: NO SPECIAL REQUESTS C ulture result: NO GROWTH 5 DAYSImages:@[email or web address]@Xr Abd (kub)Res ult Date: 04/05/2019XR ABD (KUB) CLINICAL INDICATION PROVIDED:. "assess J tube pos ition."TECHNIQUE.: An initial AP image of the abdomen was acquired. Additional APimage s of the abdomen were acquired after the hand-injection of a small volumeof radio paque contrast by the patient's nurse into the patient's J-tube.COMPARISON:. 2018. FINDINGS:. The tip of the 2 projects over the midabdomen, at the level of the mid jejunum. Post injection images demonstrateopacification of loops of mid small bowel. There is no extraluminal contrastappreciated. A large volume of s tool projects over the distal colon/rectum.Densities project over the lower lungs, right greater than left. Considercorrelation with chest radiograp hs.IMPRESSION:. Injected radiopaque contrast appears to be contained within thelumen of the mid small bowel. There is no evidence of extraluminal contrast.Additional find ings and recommendations as above.Xr Abd (kub)Result Date: 04/02/2019KUB 2 view(s ) History: Evaluate J-tube. Comparison: 11/22/2018. There is a newJ-tube overlyin g the mid abdomen with kinking involving its superior andinferior portion overlying t he mid abdomen. These findings were discussed withmale nurse Jacquelyn at 3:40 PM today.. Th ere is mild ileus of the small bowel butthere is no evidence of obstruction, radiopaqu e gallstones, or left kidneystones or an appendicolith. There are possible right kidney stones. Absence ofan appendicolith it does not exclude appendicitis. CT is sug gested if clinicallyindicated. Old rib fractures are noted.IMPRESSION: Kinking of J-tube in 2 locations. Possible right kidney stonesIleus.Ir Picc Insert Wo Por t Over 5 Years Wo ImgResult Date: 04/01/2019IR PICC INSERT WO PORT OVER 5 YEARS WO IMG CLINICAL INDICATION PROVIDED.:"midline." Medical necess ity for vascular access. PROCEDURE: After beinginformed of the risks, benefits, po tential alternatives to the procedure theinformed consent was obtained. The pa tient was placed on the table the supineposition. The right upper extremit y was prepped and draped in the normal sterilefashion. Ultrasound interrogation was performed of the right upper extremity.Images were obtained. A locat ion was chosen over the right brachial vein abovethe antecubital fossa. Lidocaine so lution was used to anesthetize the scan.Access was gained under ultrasound guidance using a 21-gauge thin-walled needle.A 0.018 a wire was advanced under fluoroscopic guidance into the right axillaryvein. The needle was exchanged o lani a wire for the midline dilator and sheath.The dilator and wire were removed leaving the sheath in situ. Through the sheatha 5 Congolese double-lumen 20 cm midl ine catheter was placed. The peel-away sheathwas removed. The catheter was sewn into position using 2-0 silk sutures. Thepatient tolerated the procedure. Ther e were no complications at the time of theprocedure. FINDINGS: Ultrasound inter rogation revealed a widely patent brachialvein above the antecubital fossa . A 5 Congolese dual-lumen 20 cm midline catheterwas placed. The tip was placed i n good position over the right axillary vein.IMPRESSION: 5 Congolese dual-lumen mid line catheter placed with tip positioned overthe right axillary vein.Ct Chest Wo ContResult Date: 03/14/2019History: Respiratory difficulty. FINDINGS: CT sca nning of the chest wasperformed helically from lung apices to the upper abdomen wi thout intravenouscontrast dural. Sagittal and coronal reconstructed images are submitt ed.Scanning was performed utilizing dose lowering techniques and is compared to t leeannr study of 01/15/2019. Evaluation of thoracic vascular structures is limitedw ithout intravenous contrast material. There is, however, no definite CTevidence of d issection or focal aneurysmal dilatation. Some peripheralcalcification is noted. T here is no evidence of any pathologically enlargedlymph node within the visualized portions of the mediastinum or axillae. Somenonpathologically enlarged lymph nod es are seen. Again noted is elevation of theleft hemidiaphragm. A left small pleu ral effusion is noted as well asatelectatic change at the left lung base. Patchy opa city at the right lung baseis compatible with a right basilar infiltrate. There is tamie e patchy opacitywithin the right middle lobe as well. The right basal infiltrate is g reater insize than that seen previously. The pleural effusion is smaller. The rightmi ddle lobe infiltrate is similar. Limited evaluation of upper abdominalstructures reveals a tube within the stomach directed toward the duodenum.Diffuse hypertrophic degenerative changes are noted of the thoracic spine. Thereis again noted to b e shift of mediastinal structures to the right.IMPRESSION: Worsening right lower lobe infiltrate. Slight worsening of the rightmiddle lobe infiltrate. Improved le ft lung.Xr Chest PortResult Date: 03/25/2019CHEST one view HISTORY: Fever. Reflux. Gastrostomy. COMPARISON: 03/11/2019.There is a poor inspiratory e ffort which compromises this interpretation. Arepeat study is suggested. There is di scoid atelectasis and/or left lower lobeinfiltrate.There is no gross evidenc e of congestion, other infiltrates,effusions or pneumothorax.IMPRESSION: Possible lef t lower lobe infiltrate. Poor inspiratory effort.Xr Chest PortResult Date: 019CHEST one view HISTORY: Fever. COPD. Reflux. COMPARISON: 02/12/2019. Anadditi onal view was obtained. A tubular structure overlies the stomach andmidabdomen with some gastric distention and elevation of the left hemidiaphragm.There is a poor inspi ratory effort which compromises this interpretation. Arepeat study is suggest ed. .There is no gross evidence of congestion,infiltrates, effusions or pne umothorax. Old rib fractures are noted.IMPRESSION: No evidence of acute c ardiopulmonary disease. Poor inspiratoryeffort. Gastric distention.Me dications:Current Facility-Administered MedicationsMedication Dose Route Frequen cy potassium, sodium phosphates (NEUTRA-PHOS) packet 1 Packet 1 Packet Per GTube DAILY methylPREDNISolone (PF) (SOLU-MEDROL) injection 20 mg 20 mg Int raVENous Q12H white petrolatum (VASELINE) ointment Topical DAILY acetylcysteine (MUCOMYST) 100 mg/mL (10 %) nebulizer solution 400 mg 4 mLInhalation BID RT sodium chloride (NS) flush 5-10 mL 5-10 mL IntraVENous PRN acetaminophen (TYLENOL) solution 650 mg 650 mg Per G Tube Q4H PRN cinacalcet (SENSIPAR) tablet 60 mg 60 m g Oral DAILY [Held by provider] heparin (porcine) injection 5,000 Units 5,000 U nitsSubCUTAneous Q12H lamoTRIgine (LaMICtal) tablet 50 mg 50 mg Per G Tube BID valp roic acid (as sodium salt) (DEPAKENE) 250 mg/5 mL (5 mL) oral solution 750mg 750 mg Per G Tube Q12H multivit-folic acid-herbal 275 (WELLESSE PLUS) oral liq uid 30 mL 30 mL Per GTube DAILY ALPRAZolam (XANAX) tablet 0.25 mg 0.25 mg Per G Tu be QPM albuterol-ipratropium (DUO-NEB) 2.5 MG-0.5 MG/3 ML 3 mL Nebulization Q6H RT budesonide (PULMICORT) 500 mcg/2 ml nebulizer suspension 500 mcg Nebulizati onBID RTActive Problems: Acute hypoxemic respiratory failure (HCC) (03/25/2019)As sessment:1. ACUTE HYPERCAPNIC AND HYPOXIC RESPIRATORY FAILURE2. SEVER COPD STAB LE 3. ASPIRATION PNEUMONIA 4. SMALL ATELECTASIS L L L5. FRACTURED P E G6. PARKINSONISM7. SEVERE MENTAL RETARDATION8. KYPHOSIS9. HYPOVENTILATIO N 10. METABOLIC ENCEPHALOPATHY IMPROVING Plan:1. TOLERATING P E G FEEDING2. CH RAYSA LOW FOLW O2 4 L N C DAY TIME AT NIGHT BIPAP3. F/ U CULTURES 4. AGREE WITH I V CEFEPIME AND VANCOMYCIN5. D/C SOLUMEDROL 6. DUO NEB QID7. I V FLUIDS8. CHEST PT 9. SOME IMPROVEMENT NOTED CONT SAME TREATMENT 10. AWAITING TO GET SURGICALLY PLACED J TUBE CURRENT ONE HAVEFRACTURE PER G I Krystian Monae MD F.C.C.P.April 05, 20194:19 PM Name Value Range Interpretation Code Description Data Harriett rce(s) Supporting Document(s ) ID Date Data Source [id number] 04/05/2019 05:01:52 PM EST [facility] Name Value Range Interpretation Description Data Sup porting Code Source(s) Document(s ) Glucose 114 MG/DL 65-110 Above high normal [facility] [Mass/volume] Taoist in Blood by Hospital Automated test strip ID Date Data Source [id number] 04/05/2019 03:32:51 PM EST [facility] Progress NoteEmanuel [id number] y.o.Adm it Date: 03/25/2019Active Problems: Acute hypoxemic respiratory failure (HCC) (02/2019)Subjective:Awake, no distressPertinent items are noted in the History of Present Illness.Objective:Visit VitalsBP 136/69 (BP 1 Location: Left arm , BP Patient Position: At rest)Pulse 67Temp 97.4 F (36.3 C)Resp 20Wt 47.7 kg (105 lb 1.6 oz)SpO2 95%BMI 19.22 kg/m Intake and Output:Date 04/04/19 0700 - 04/05/19 065 9 04/05/19 0700 - 04/06/19 0659Shift 8122-2094 3379-9505 24 Hour Total 0700-1 859 9800-5577 24 Hour TotalINTAKENG/GT 90 90 0 0 Water Flush Volume (mL) (PEG/Gastr ostomy Tube) 0 0 0 0 Medication Volume (PEG/Gastrostomy Tube) 90 90Shift Total (mL/kg) 90(1.9) 90(1.9) 0(0) 0(0)OUTPUTUrine(mL/kg/hr) 1800(3.1) 180 0(1.6) Urine Voided 1800 1800Stool Stool Occurrence(s) 1 x 1 xShift Total(mL/kg) 1800(37.8) 1800(37.8)NET -1710 -1710 0 0Weight (kg) 46.8 47.7 47.7 47.7 47.7 47 .7Medications Reviewed:Current Facility-Administered MedicationsMedicat ion Dose Route Frequency Provider Last Rate Last Dose potassium, sodium phosphates (NEUTRA-PHOS) packet 1 Packet 1 Packet Per GTube DAILY Radha León MD 1 Pac ket at 04/05/19 1007 methylPREDNISolone (PF) (SOLU-MEDROL) injection 20 mg 20 mg Int raVENous L05FIrfytnKrystian helms MD 20 mg at 04/05/19 1010 white petrolatum (VASELIN E) ointment Topical DAILY Mili Hills DO 5 gat 04/05/19 1101 acetylcysteine (MUCOMYST) 100 mg/mL (10 %) nebulizer solution 400 mg 4 mLInhalation BID RT N Mili buchanan DO 400 mg at 04/05/19 0822 sodium chloride (NS) flush 5-10 mL 5-10 mL IntraVENous PRN Jessie Neumann MD 10 mL at 04/05/19 0620 acetaminophen ( TYLENOL) solution 650 mg 650 mg Per G Tube Q4H PRN Mili Hills DO cinacalcet ( SENSIPAR) tablet 60 mg 60 mg Oral DAILY Mili Hills DO 60mg at 04/05/19 10 08 [Held by provider] heparin (porcine) injection 5,000 Units 5,000 UnitsSubCUT Aneous Q12H Mili Hills DO Stopped at 03/30/19 0725 lamoTRIgine (LaMICtal) ta blet 50 mg 50 mg Per G Tube BID Mili Hills DO50 mg at 04/05/19 1008 valpr oic acid (as sodium salt) (DEPAKENE) 250 mg/5 mL (5 mL) oral solution 750mg 750 mg Pe r G Tube Q12H Mili Hills DO 750 mg at 04/05/19 1007 multivit-folic acid-herba l 275 (WELLESSE PLUS) oral liquid 30 mL 30 mL Per GTube DAILY Mili Hills DO 30 mL at 04/04/19 1255 ALPRAZolam (XANAX) tablet 0.25 mg 0.25 mg Per G Tube QPM N Mili buchanan, 0.25 mg at 04/04/19 1752 albuterol-ipratropium (DUO-NEB) 2.5 MG-0 .5 MG/3 ML 3 mL Nebulization Q6H RTMili Hills, DO 3 mL at 04/05/19 1349 bud esonide (PULMICORT) 500 mcg/2 ml nebulizer suspension 500 mcg NebulizationBID RT N Mili buchanan, DO 500 mcg at 04/05/19 0822Physical Exam:Physical Exam:Non verb alS1 s2 RRRResp: clearAbd: softExt: no edemaData Review:Recent Results (from e past 24 hour(s))GLUCOSE, POC Collection Time: 04/04/19 4:05 PMResult Value Ref Range Glucose, bedside 115 (H) 65 - 110 MG/DLGLUCOSE, POC Collection Time: 04/04 11:33 PMResult Value Ref Range Glucose, bedside 118 (H) 65 - 110 MG/DLRENAL FUNC TION PANEL Collection Time: 04/05/19 5:34 AMResult Value Ref Range Sodium 137 136 - 145 mmol/L Potassium 4.4 3.5 - 5.1 mmol/L Chloride 96 (L) 98 - 107 mmol/L CO2 36 ( H) 21 - 32 mmol/L Anion gap 10 10 - 20 mmol/L Glucose 126 (H) 74 - 106 mg/dL BUN 12 7 - 18 mg/dL Creatinine 0.38 (L) 0.70 - 1.30 mg/dL GFR est AA >60 >60 ml/min/1.73m2 G FR est non-AA >60 >60 ml/min/1.73m2 Calcium 9.6 8.5 - 10.1 mg/dL Phosphorus 3.3 2.5 - 4.9 mg/dL Albumin 2.3 (L) 3.5 - 4.7 g/dLMAGNESIUM Collection Time: 04/05/19 5:34 AMResult Value Ref Range Magnesium 2.1 1.6 - 2.6 mg/dLCBC WITH AUTOMATED DIFF C ollection Time: 04/05/19 5:34 AMResult Value Ref Range WBC 9.1 4.8 - 10.6 K/uL RBC 4. 02 (L) 4.70 - 6.00 M/uL HGB 12.5 (L) 14.0 - 18.0 g/dL HCT 38.7 (L) 42.0 - 52.0 % MCV 96.3 (H) 81.0 - 94.0 FL MCH 31.1 27.0 - 35.0 PG MCHC 32.3 30.7 - 37.3 g/dL RDW 16.2 ( H) 11.5 - 14.0 % PLATELET 335 130 - 400 K/uL MPV 9.6 9.2 - 11.8 FL NRBC 0.0 0 PER 100 WBC ABSOLUTE NRBC 0.00 0.0 - 0.01 K/uL NEUTROPHILS 78 (H) 48.0 - 72.0 % LYMPHOC YTES 17 (L) 18.0 - 40.0 % MONOCYTES 3 2.0 - 12.0 % EOSINOPHILS 0 0.0 - 7.0 % BASOPHI LS 0 0.0 - 3.0 % MYELOCYTES 2 (H) 0 % IMMATURE GRANULOCYTES 0 % ABS. NEUTROPHI LS 7.3 2.3 - 7.6 K/UL ABS. LYMPHOCYTES 1.5 0.9 - 4.2 K/UL ABS. MONOCYTES 0.3 0.1 - 1.7 K/UL ABS. EOSINOPHILS 0.0 0.0 - 1.0 K/UL ABS. BASOPHILS 0.0 K/UL ABS. IMM. GRANS. 0.0 K/UL RBC COMMENTS NORMOCYTIC, NORMOCHROMIC PLATELET ESTIMATE ADEQUATE DF MANUALGLUCOSE, POC Collection Time: 04/05/19 6:22 AMResult Value Ref Range Glucose, bedside 100 65 - 110 MG/DLGLUCOSE, POC Collection Time: 04/05/19 11:54 AMRe sult Value Ref Range Glucose, bedside 114 (H) 65 - 110 MG/DLImpression:Active Hospital Problems Diagnosis Date Noted Acute hypoxemic respiratory failure (HCC) 03/15 HyponatremiaPlan:DC 04/16 NSDC free water flushesPEG to be flushed with NSLa bs better with above measuresSri Aditya Nicemireya, MDDecember 2018 Name Value Range Interpretation Code Description Data Harriett rce(s) Supporting Document(s ) ID Date Data Source [id number] 04/05/2019 03:20:39 PM [facility] Problem: Falls - Risk ofGoal: *Absence o f FallsDescriptionDocument Samra Fall Risk and appropriate interventions in the jhon wsheet.Outcome: Progressing Towards GoalNote: Fall Risk Interventions:Mentation Interv entions: Door open when patient unattended, Bed/chair exitalarm, Toileting rounds, M ore frequent roundingMedication Interventions: Bed/chair exit alarmElimi nation Interventions: Bed/chair exit alarm, Toileting schedule/hourlyroundsProblem: Patient Education: Go to Patient Education ActivityGoal: Patient/Family EducationOu tcome: Progressing Towards GoalProblem: Seizure Disorder (Adult)Goal: *STG: Lindsey ins free of seizure activityOutcome: Progressing Towards GoalProblem: Non-Beth lent RestraintsGoal: *Removal from restraints as soon as assessed to be safeOutcome: P rogressing Towards GoalGoal: *No harm/injury to patient while restraints in useOutcom e: Progressing Towards GoalGoal: *Patient's dignity will be maintainedOutcome: Progr essing Towards Goal Name Value Range Interpretation Code Description Data Harriett rce(s) Supporting Document(s ) ID Date Data Source [id number] 04/05/2019 12:55:03 PM [facility] Progress NotePatient: Evelio Carlin Sex: male DOA: 03/25/2019Date of : 1950 Age: 68 y.o. :[id number]:Reyes Carlin is 68 y.o. male who is wearing BIPAP maskHis current O2 Sat is100 %. . He is appearing comfortable.He is s/p EGD with positioning of jenunal feeding tube and endoclipping on03/26/19Pt with TF leaking and was found with crack in the tube.RN reporting she is unable to access the jtube port. She is encounteringresi stance upon inserting the feeding tube catheter into the jtube portNursing benito mazariegos was instructed by santiago weldon to use the side port.. The patient is currently sandhya TF via the side port. He is s/p endoscopic placement of jtube over PEG and removal of the currentdefective tube on 04/01/19.KUB on yesterday showed jtube kinkingSeen by fatemeh, attempts made to straighten the tube. Unclear, if entirely unkinked.A f/u KUB was orderedA KUB with contrast was ordered to determine placement of PEJ.The patien t was seen by general surgery during this admission for eval ofsurgical placement of a Jtube. The surgeon is rec placement of PEJ tube rathersubjection the patient to surgery. The patient is considered a high risksurgical candidate. He has medical h istory of Dysphagia, recurrent aspiration pneumonia, s/p g/tplacement 11/17/18 and conversion to jtube on02/07/19, hyperlipidemia,hyperparathyroid, unspeci fied,seizure, large hiatalhernia, anxiety disorder, personal history of pulmonary embolus,COPD, GERD,Schizophrenia unspecified, Kyphosis, Parkinson disease, Severe int ellectualdisabilities, Contractures and Generalized muscle weakness.As per [facility] transfer record, the patient was transferred to the EDfor Hypoxia, he was found with O2 SAT 77 % on O2 NC 4 LPM and tachypneic. Hewas later placed on NRBM. Patient has a clogged jtube and the long-term hasbeen using the gtube site for fe edings and administration of medications.Pt was seen at [facility] by Dr Motley, gi and jocelyn ns were for jtube placement, that wasscheduled on the same day as this [facility] pital admission.The patient is nonverbal and unable to participate with his histo ry.Patient was admitted with encounter diag of Acute Hypercapneic and Hypoxemicrespi ratory failure and aspiration pneumonia. Also, diag of COPD, Leukocytosis,Malfunc tioning jtube, dysphagia, Anxiety Disorder, contractures and Mentallychallenged are pertinent to this visit. 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 Pupils are equalThroat: Lips, mucosa, and tongue normal. No ThrushNeck: Supple, symmetrical, no adenopathy, no carotid bruit and no JVD.Lungs: Clear to auscu ltation bilaterally. No Wheezing or Rhonchi. No rales.Chest wall: No Accessory musc le use.Heart: Regular rate and rhythm, no murmur, or rubAbdomen: Soft, non-tende r. Not distended. Bowel sounds normal. No massesExtremities: Extremities normal, a traumatic, No cyanosis. No edema. No clubbingSkin: Warm and dry. No rashe s or lesions. Not JaundicedLymph nodes: Cervical, supraclavicular normal.Psych: Not anxious or agitated.Neurologic: EOMs intact. No facial asymmetry. Non verbal. Generalized weakness,Alert and Awake..Intake and Output:Current Shift: No intake/out put data recorded.Last three shifts: 04/03 1901 - 12/22 0700In: 1990 [I.V.:600]Out: 2800 [Urine:2800]Lab/Data Reviewed:Recent Days:Recent Labs 04/03/1906WBC 9.1 9.6 12.0*HGB 12.5* 12.5* 12.4*HCT 38.7* 39.0* 38.1*PLT 335 237 289Recent Labs 04/04/1907NA 137 133* 137K 4.4 4.6 4.2 CL 96* 93* 96*CO2 36* 38* 36*GLU 126* 97 129*BUN 12 10 12CREA 0.38* 0.39* 0.46*CA 9.6 10.0 10.2*MG 2.1 1.9 2.2PHOS 3.3 2.8 1.8*ALB 2.3* 2.3* 2.3*No results for inp ut(s): PH, PCO2, PO2, HCO3, FIO2 in the last 72 hours.CULTURE, BLOOD [[id number]] (Order [id number])MicrobiologyDate: 03/25/2019 Department: [facility] Med Surg Released By/ Authorizing:Jessie Neumann MD (auto-released)Specimen Information: Blo od Component Value Flag Ref Range Units StatusSpecial Requests: FinalNO SPE CIAL REQUESTSCulture result: NO GROWTH 5 DAYS FinalXr Abd (kub)Result Date: 04/02KUB 2 view(s) History: Evaluate J-tube. Comparison: 11/22/2018. There is a newJ-t ube overlying the mid abdomen with kinking involving its superior andinferior porti on overlying the mid abdomen. These findings were discussed withmale nurse Jacquelyn at 3:4 0 PM today.. There is mild ileus of the small bowel butthere is no evidence of obstruc tion, radiopaque gallstones, or left kidneystones or an appendicolith. There are possible right kidney stones. Absence ofan appendicolith it does not exclude a ppendicitis. CT is suggested if clinicallyindicated. Old rib fractures a re noted.IMPRESSION: Kinking of J-tube in 2 locations. Possible right kidney stonesI leus.Ir Picc Insert Wo Port Over 5 Years Wo ImgResult Date: 04/01/2019IR PICC INSERT WO PORT OVER 5 YEARS WO IMG CLINICAL INDICATION PROVIDED.:"midline." Medical necessity for vascular access. PROCEDURE: After beinginformed of the risks, benefi ts, potential alternatives to the procedure theinformed consent was obtained. The pa tient was placed on the table the supineposition. The right upper extremit y was prepped and draped in the normal sterilefashion. Ultrasound interrogation was performed of the right upper extremity.Images were obtained. A locat ion was chosen over the right brachial vein abovethe antecubital fossa. Lidocaine so lution was used to anesthetize the scan.Access was gained under ultrasound guidance using a 21-gauge thin-walled needle.A 0.018 a wire was advanced under fluoroscopic guidance into the right axillaryvein. The needle was exchanged o lani a wire for the midline dilator and sheath.The dilator and wire were removed leaving the sheath in situ. Through the sheatha 5 Congolese double-lumen 20 cm midl ine catheter was placed. The peel-away sheathwas removed. The catheter was sewn into position using 2-0 silk sutures. Thepatient tolerated the procedure. Ther e were no complications at the time of theprocedure. FINDINGS: Ultrasound inter rogation revealed a widely patent brachialvein above the antecubital fossa . A 5 Congolese dual-lumen 20 cm midline catheterwas placed. The tip was placed i n good position over the right axillary vein.IMPRESSION: 5 Congolese dual-lumen mid line catheter placed with tip positioned overthe right axillary vein.Ct Chest Wo ContResult Date: 03/14/2019History: Respiratory difficulty. FINDINGS: CT sca nning of the chest wasperformed helically from lung apices to the upper abdomen wi thout intravenouscontrast dural. Sagittal and coronal reconstructed images are submitt ed.Scanning was performed utilizing dose lowering techniques and is compared to t jasmeet study of 01/15/2019. Evaluation of thoracic vascular structures is limitedw ithout intravenous contrast material. There is, however, no definite CTevidence of d issection or focal aneurysmal dilatation. Some peripheralcalcification is noted. T here is no evidence of any pathologically enlargedlymph node within the visualized portions of the mediastinum or axillae. Somenonpathologically enlarged lymph nod es are seen. Again noted is elevation of theleft hemidiaphragm. A left small pleu ral effusion is noted as well asatelectatic change at the left lung base. Patchy opa city at the right lung baseis compatible with a right basilar infiltrate. There is tamie e patchy opacitywithin the right middle lobe as well. The right basal infiltrate is g reater insize than that seen previously. The pleural effusion is smaller. The rightmi ddle lobe infiltrate is similar. Limited evaluation of upper abdominalstructures reveals a tube within the stomach directed toward the duodenum.Diffuse hypertrophic degenerative changes are noted of the thoracic spine. Thereis again noted to b e shift of mediastinal structures to the right.IMPRESSION: Worsening right lower lobe infiltrate. Slight worsening of the rightmiddle lobe infiltrate. Improved le ft lung.Xr Chest PortResult Date: 03/25/2019CHEST one view HISTORY: Fever. Reflux. Gastrostomy. COMPARISON: 03/11/2019.There is a poor inspiratory e ffort which compromises this interpretation. Arepeat study is suggested. There is di scoid atelectasis and/or left lower lobeinfiltrate.There is no gross evidenc e of congestion, other infiltrates,effusions or pneumothorax.IMPRESSION: Possible lef t lower lobe infiltrate. Poor inspiratory effort.Xr Chest PortResult Date: 019CHEST one view HISTORY: Fever. COPD. Reflux. COMPARISON: 02/12/2019. Anadditi onal view was obtained. A tubular structure overlies the stomach andmidabdomen with some gastric distention and elevation of the left hemidiaphragm.There is a poor inspi ratory effort which compromises this interpretation. Arepeat study is suggest ed. .There is no gross evidence of congestion,infiltrates, effusions or pne umothorax. Old rib fractures are noted.IMPRESSION: No evidence of acute c ardiopulmonary disease. Poor inspiratoryeffort. Gastric distention.Me dications reviewedCurrent Facility-Administered MedicationsMedicat ion Dose Route Frequency potassium, sodium phosphates (NEUTRA-PHOS) packet 1 Packet 1 Packet Per GTube DAILY methylPREDNISolone (PF) (SOLU-MEDROL) in jection 20 mg 20 mg IntraVENous Q12H white petrolatum (VASELINE) ointment Topical DAILY acetylcysteine (MUCOMYST) 100 mg/mL (10 %) nebulizer solution 400 mg 4 mLIn halation BID RT sodium chloride (NS) flush 5-10 mL 5-10 mL IntraVENous PRN acetam inophen (TYLENOL) solution 650 mg 650 mg Per G Tube Q4H PRN cinacalcet (SENSIPAR) ta blet 60 mg 60 mg Oral DAILY [Held by provider] heparin (porcine) injection 5, 000 Units 5,000 UnitsSubCUTAneous Q12H lamoTRIgine (LaMICtal) tablet 50 mg 50 mg Per G Tube BID valproic acid (as sodium salt) (DEPAKENE) 250 mg/5 mL (5 mL) oral solution 750mg 750 mg Per G Tube Q12H multivit-folic acid-herbal 275 (WELLESSE PLUS) oral liquid 30 mL 30 mL Per GTube DAILY ALPRAZolam (XANAX) tablet 0.25 mg 0.25 mg Per G Tube QPM albuterol-ipratropium (DUO-NEB) 2.5 MG-0 .5 MG/3 ML 3 mL Nebulization Q6H RT budesonide (PULMICORT) 500 mcg/2 ml nebu lizer suspension 500 mcg NebulizationBID RTAssessment/Plan:Hospital Problems Pan e Reviewed: 04/05/2019 Codes Class Noted POA Acute hypoxemic respiratory fa ilure (HCC) ICD-10-CM: J96.01ICD-9-CM: 518.81 03/25/2019 UnknownAssessment:Acute Hype rcapneic, Hypoxemic Respiratory FailureAspiration PneumoniaCOPDLeukocyto sis- trending downwardMalfunctioning jtube; tubing appears to be defectiveDysphagia ( s/p gtube conversion to jtube on 02/07/19)Anxiety DisorderHyperparathyroi d Unspecified typeHypercalcemiaMentally challengedSeizure disorderHyponatremia- stableHypophosphate Plan: Continue IV cefepime and vancomycin per IDVM, PRN BI PAP per pulmonaryMalfunctioning( new) PEJ due to kinked segments.F/u repeat KUBGI foll ow upIv steroids taper per pulmonarynebulizersContinue mucomyst neb ulizersCheck PTH- RPContinue sensiparRenal f/uReplace phosphorusFollow up culturesM onitor lytesIv fluids DC'dPt has poor venous access; a mid line placement is medicall y Teofilo Beltrán 2018Time: 12:10 PM Name Value Range Interpretation Code Description Data Harriett rce(s) Supporting Document(s ) ID Date Data Source [id number] 04/05/2019 12:44:47 PM EST [facility] XR ABD (KUB)CLINICAL INDICATION PROVIDED :. "assess J tube position."TECHNIQUE.: An initial AP image of the abdomen was acqu ired. Additional APimages of the abdomen were acquired after the hand-injection of a s mall volumeof radiopaque contrast by the patient's nurse into the patient's J-tub e.COMPARISON:. 04/02/2019.FINDINGS:. The tip of the 2 projects over the mid abdomen, at the level of the mid jejunum.Post injection images demonstrate opacificati on of loops of mid small bowel.There is no extraluminal contrast appreciated.A larg e volume of stool projects over the distal colon/rectum. Densities projectover the lower lungs, right greater than left. Consider correlation with chestradiograp hs.IMPRESSION:. Injected radiopaque contrast appears to be contained within the lumen of the midsmall bowel. There is no evidence of extraluminal contrast. Additional georgina vela recommendations as above. Signing date/time: 04/05/2019 12:44 PMSigned by: ELIZABETH FARR Name Value Range Interpretation Code Description Data Harriett rce(s) Supporting Document(s ) ID Date Data Source [id number] 04/05/2019 12:06:06 PM EST [facility] Name Value Range Interpretation Description Data Sup porting Code Source(s) Document(s ) Glucose 114 MG/DL 65-110 Above high normal [facility] [Mass/volume] Taoist in Blood by Hospital Automated test strip ID Date Data Source [id number] 04/05/2019 10:27:44 AM EST [facility] ID Progress Note04/05/2019Subjective:Pat ient with history of MR,COPD,recurrent aspiration pneumonia,dysphagia s/p pegpl acement was transferred from the long-term for respiratory distress,lowoxygen satur ation of 77% on 4 L nasal canula.Patient is non verbal,more awake today butunable to provide any historyAwake non verbal,unale to provide history,for midline insertionS/p PICC, afebrile, WBC WNL, on BIPAPNO events overnightBlood culture no growth.Afebril eAwaiting Surgical J tube placement as current on with leak and crack in theinl et portObjective:Review of SystemsUnable to provide.Vitals:Patient Vitals for the me st 24 hrs: BP Temp Pulse Resp SpO2 Exykrx86/22/19 1005 125/72 - - - - -03/16 06/03 0752 90/56 96.7 F (35.9 C) 64 20 100 % -04/05/19 0655 - - - - - 47.7 kg (105 lb 1.6 oz)04/05/19 0508 - - - - 96 % -04/05/19 0453 118/66 98.7 F (37.1 C) 95 20 97 % -04/04/19 2346 134/72 - - - - -04/04/19 2340 116/84 98 F (36.7 C) 84 20 98 % -04/04 131/84 97.7 F (36.5 C) 86 20 96 % -04/04/19 1555 108/76 97.3 F (36.3 C) 89 20 100 % -04/04/19 1339 - - - - 96 % -04/04/19 1129 112/64 97.1 F (36.2 C) 71 18 96 % -Tmax: Temp (24hrs), Av.6 F (36.4 C), Min:96.7 F (35.9 C), Max:98 .7 F(37.1 C)Physical Exam:General: Awake, nonverbal cooperative, no distress, appe ars stated age.Eyes: Conjunctivae/corneas clear. PERRLNeck: Supple, symmetrical, t rachea midline, no adenopathyLungs: Bilateral breath sounds with basal crack les..Heart: Regular rate and rhythm, S1, S2 normal, no murmurAbdomen: Soft, non-te nder. Bowel sounds normal. No masses, Noorganomegaly.peg+Back: No CVA tender ness.Extremities: Chronic lymphedema, no cyanosisPulses: 2+ and symmetric all ext remities.Skin: Skin color, texture, turgor normal. No rashes or lesionsCurrent Faci lity-Administered MedicationsMedication Dose Route Frequency potassium, sodium phosp hates (NEUTRA-PHOS) packet 1 Packet 1 Packet Per GTube DAILY methylPREDNISolone (PF) (SOLU-MEDROL) injection 20 mg 20 mg IntraVENous Q12H white petrolatum (VASE LINE) ointment Topical DAILY acetylcysteine (MUCOMYST) 100 mg/mL (10 %) nebulizer solution 400 mg 4 mLInhalation BID RT sodium chloride (NS) flush 5-10 mL 5-10 mL IntraVENous PRN acetaminophen (TYLENOL) solution 650 mg 650 mg Per G Tube Q4H PRN cinacalcet (SENSIPAR) tablet 60 mg 60 mg Oral DAILY [Held by provider] heparin (porcine) injection 5,000 Units 5,000 UnitsSubCUTAneous Q12H lamoTRIgin e (LaMICtal) tablet 50 mg 50 mg Per G Tube BID valproic acid (as sodium salt) (DEP AKENE) 250 mg/5 mL (5 mL) oral solution 750mg 750 mg Per G Tube Q12H multivit-folic acid-herbal 275 (WELLESSE PLUS) oral liquid 30 mL 30 mL Per GTube DAILY ALPRAZolam (XANAX) tablet 0.25 mg 0.25 mg Per G Tube QPM albuterol-ipratropium (DUO-NEB) 2.5 MG-0.5 MG/3 ML 3 mL Nebulization Q6H RT budesonide (PULMICORT) 500 mcg/2 ml nebu lizer suspension 500 mcg NebulizationBID RTLabs:Recent Labs 54217 630WBC 9.1 9.6 12.0*HGB 12.5* 12.5* 12.4*PLT 335 237 289BUN 12 10 12CR EA 0.38* 0.39* 0.46*Cultures:Lab ResultsComponent Value Date/Time Culture result: NO GROWTH 5 DAYS 03/25/2019 03:10 AM Culture result: NO GROWTH 5 DAYS 019 02:55 AM Culture result: NO GROWTH 5 DAYS 03/11/2019 04:14 AM Culture result: NO G SHASHANK 5 DAYS 03/11/2019 04:14 AMRadiology:No results found.Assessment: Recurrent asp iration pneumonia. Acute COPD exacerbation Acute hypercapnic respiratory failure. Dysphagia s/p peg placement.. Atelectasis sepsis ruled out Plan:1. Continue IV cef epime and vancomycin x 1 more dayMaangeles BossangelPat [id number] AM Name Value Range Interpretation Code Description Data [facility](s) Supporting Document(s ) ID Date Data Source [id number] 04/05/2019 07:46:04 AM [facility] Bedside and Verbal shift change report carol ankit to NANCY Cornell (oncoming nurse) Jhon Aviles RN (offgoing nurse). Report in cluded the followinginformation SBAR, Kardex, Intake/Output, MAR and Recent Results. Name Value Range Interpretation Code Description Data [facility](s) Supporting Document(s ) ID Date Data Source [id number] 04/05/2019 07:31:26 AM [facility] Progress NotePatient: Evelio Carlin Sex: male DOA: 03/25/2019Date of : 1950 Age: 68 y.o. :[id number]:Reyes Carlin is 68 y.o. male . with vm pulled off,appearing comfortable,his O2 SAT cur rently is 100 %. He is s/p endoscopic placement of jtube over PEG and removal of the currentdefective tube on 04/01/19.RN reporting she is unable to access the j tube port. She is encounteringresistance upon inserting the feeding tube catheter into the jtube port. Thepatient is currently sandhya TF via the side port.KUB o n yesterday showed jtube kinkingSeen by gi earlier today, attempts made to straight en the tube. Unclear, ifentirely unkinked. A f/u KUB was orderedThe patient was seen by general surgery during this admission for eval ofsurgical placement of a Jtube. Th e surgeon is rec placement of PEJ tube rathersubjection the patient to surgery. The patient is considered a high risksurgical candidate.Pt has an occasio nal moist cough today. He is not expectorating.He is s/p EGD with positio keith of jenunal feeding tube and endoclipping on03/26/19Pt with TF leaking and was fo und with crack in the tube.Nursing staff was instructed by santiago weldon to use the side por t. He is sandhya TF.For jtube placement in morning. He has medical history of Dysp hagia, recurrent aspiration pneumonia, s/p g/tplacement 11/17/18 and conversion to j tube on02/07/19, hyperlipidemia,hyperparathyroid, unspeci fied,seizure, large hiatalhernia, anxiety disorder, personal history of pulmonary embolus,COPD, GERD,Schizophrenia unspecified, Kyphosis, Parkinson disease, Severe int ellectualdisabilities, Contractures and Generalized muscle weakness.As per [facility] transfer record, the patient was transferred to the EDfor Hypoxia, he was found with O2 SAT 77 % on O2 NC 4 LPM and tachypneic. Hewas later placed on NRBM. Patient has a clogged jtube and the long-term hasbeen using the gtube site for fe edings and administration of medications.Pt was seen at [facility] by fatemeh Shabazz and jocelyn ns were for jtube placement, that wasscheduled on the same day as this [facility] pital admission.The patient is nonverbal and unable to participate with his histo ry.Patient was admitted with encounter diag of Acute Hypercapneic and Hypoxemicrespi ratory failure and aspiration pneumonia. Also, diag of COPD, Leukocytosis,Malfunc tioning jtube, dysphagia, Anxiety Disorder, contractures and Mentallychallenged are pertinent to this visit. 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 Pupils are equalNeck: Supple, symmetrical, no adenopathy, no carotid bruit and no JVD.Back: Symmetric, No CVA tenderness.Lungs: Clear to aus cultation bilaterally. No Wheezing or Rhonchi. No rales.Chest wall: No Access ory muscle use.Heart: Regular rate and rhythm, no murmur, or rub.Abdomen: So ft, non-tender. Not distended. Bowel sounds normal. No massesExtremities: Extremitie s normal, atraumatic, No cyanosis. No edema. No clubbingSkin: Warm and dry. No r ashes or lesions. Not JaundicedLymph nodes: Cervical, supraclavicular normal.Psych: Not anxious or agitated.Neurologic: EOMs intact. No facial asymmetry. No aphasia or slurred speech.Generalized weakness, Alert and Awake.Intake and Output:Current Shif t: No intake/output data recorded.Last three shifts: 04/03 701 - 04/04 1900In: 2900 [I.V.:600]Out: 4600 [Urine:4600]Lab/Data Reviewed:Recent Days:Recent Labs 04/03/1906WBC 9.6 12.0* 11.9*HGB 12.5* 12.4* 12.7*HCT 39.0* 38.1 * 39.9*PLT 237 289 279Recent Labs 04/03/1906NA 133* 137 136K 4.6 4.2 4.2CL 93* 96* 95*CO2 38* 36* 35*GLU 97 129* 114*BUN 10 12 15C SHILO 0.39* 0.46* 0.46*CA 10.0 10.2* 10.5*MG 1.9 2.2 2.1PHOS 2.8 1.8* 2.4*ALB 2.3* 2. 3* 2.3*No results for input(s): PH, PCO2, PO2, HCO3, FIO2 in the last 72 hours.Xr Abd (kub)Result Date: 04/02/2019KUB 2 view(s) History: Evaluate J-tube. Comparison: . There is a newJ-tube overlying the mid abdomen with kinking involving its s uperior andinferior portion overlying the mid abdomen. These findings were discussed w sunil Mora at 3:40 PM today.. There is mild ileus of the small bowel butthere i s no evidence of obstruction, radiopaque gallstones, or left kidneystones or an a ppendicolith. There are possible right kidney stones. Absence ofan appendicolith it do es not exclude appendicitis. CT is suggested if clinicallyindicated. Old rib fracture s are noted.IMPRESSION: Kinking of J- tube in 2 locations. Possible right kidney stone sIleus.Ir Picc Insert Wo Port Over 5 Years Wo ImgResult Date: 04/01/2019IR PICC INSERT WO PORT OVER 5 YEARS WO IMG CLINICAL INDICATION PROVIDED.:"midline." Medical necessity for vascular access. PROCEDURE: After beinginformed of the risks, benefi ts, potential alternatives to the procedure theinformed consent was obtained. The pa tient was placed on the table the supineposition. The right upper extremit y was prepped and draped in the normal sterilefashion. Ultrasound interrogation was performed of the right upper extremity.Images were obtained. A locat ion was chosen over the right brachial vein abovethe antecubital fossa. Lidocaine so lution was used to anesthetize the scan.Access was gained under ultrasound guidance using a 21-gauge thin-walled needle.A 0.018 a wire was advanced under fluoroscopic guidance into the right axillaryvein. The needle was exchanged o lani a wire for the midline dilator and sheath.The dilator and wire were removed leaving the sheath in situ. Through the sheatha 5 Congolese double-lumen 20 cm midl ine catheter was placed. The peel-away sheathwas removed. The catheter was sewn into position using 2-0 silk sutures. Thepatient tolerated the procedure. Ther e were no complications at the time of theprocedure. FINDINGS: Ultrasound inter rogation revealed a widely patent brachialvein above the antecubital fossa . A 5 Congolese dual-lumen 20 cm midline catheterwas placed. The tip was placed i n good position over the right axillary vein.IMPRESSION: 5 Congolese dual-lumen mid line catheter placed with tip positioned overthe right axillary vein.Ct Chest Wo ContResult Date: 03/14/2019History: Respiratory difficulty. FINDINGS: CT sca nning of the chest wasperformed helically from lung apices to the upper abdomen wi thout intravenouscontrast dural. Sagittal and coronal reconstructed images are submitt ed.Scanning was performed utilizing dose lowering techniques and is compared to t leeannr study of 01/15/2019. Evaluation of thoracic vascular structures is limitedw ithout intravenous contrast material. There is, however, no definite CTevidence of d issection or focal aneurysmal dilatation. Some peripheralcalcification is noted. T here is no evidence of any pathologically enlargedlymph node within the visualized portions of the mediastinum or axillae. Somenonpathologically enlarged lymph nod es are seen. Again noted is elevation of theleft hemidiaphragm. A left small pleu ral effusion is noted as well asatelectatic change at the left lung base. Patchy opa city at the right lung baseis compatible with a right basilar infiltrate. There is tamie e patchy opacitywithin the right middle lobe as well. The right basal infiltrate is g reater insize than that seen previously. The pleural effusion is smaller. The rightmi ddle lobe infiltrate is similar. Limited evaluation of upper abdominalstructures reveals a tube within the stomach directed toward the duodenum.Diffuse hypertrophic degenerative changes are noted of the thoracic spine. Thereis again noted to b e shift of mediastinal structures to the right.IMPRESSION: Worsening right lower lobe infiltrate. Slight worsening of the rightmiddle lobe infiltrate. Improved le ft lung.Xr Chest PortResult Date: 03/25/2019CHEST one view HISTORY: Fever. Reflux. Gastrostomy. COMPARISON: 03/11/2019.There is a poor inspiratory e ffort which compromises this interpretation. Arepeat study is suggested. There is di scoid atelectasis and/or left lower lobeinfiltrate.There is no gross evidenc e of congestion, other infiltrates,effusions or pneumothorax.IMPRESSION: Possible lef t lower lobe infiltrate. Poor inspiratory effort.Xr Chest PortResult Date: 019CHEST one view HISTORY: Fever. COPD. Reflux. COMPARISON: 02/12/2019. Anadditi onal view was obtained. A tubular structure overlies the stomach andmidabdomen with some gastric distention and elevation of the left hemidiaphragm.There is a poor inspi ratory effort which compromises this interpretation. Arepeat study is suggest ed. .There is no gross evidence of congestion,infiltrates, effusions or pne umothorax. Old rib fractures are noted.IMPRESSION: No evidence of acute c ardiopulmonary disease. Poor inspiratoryeffort. Gastric distention.Me dications reviewedCurrent Facility-Administered MedicationsMedicat ion Dose Route Frequency [START ON 04/05/2019] potassium, sodium phosphates (NEUTRA-PHOS) packet 1Packet 1 Packet Per G Tube DAILY methylPREDNISolone (PF) (CHA U-MEDROL) injection 20 mg 20 mg IntraVENous Q12H white petrolatum (VASELINE) ointme nt Topical DAILY acetylcysteine (MUCOMYST) 100 mg/mL (10 %) nebulizer solution 400 mg 4 mLInhalation BID RT sodium chloride (NS) flush 5-10 mL 5-10 mL IntraVENous PRN acetaminophen (TYLENOL) solution 650 mg 650 mg Per G Tube Q4H PRN cinacalcet (S ENSIPAR) tablet 60 mg 60 mg Oral DAILY [Held by provider] heparin (porcine) inj ection 5,000 Units 5,000 UnitsSubCUTAneous Q12H lamoTRIgine (LaMICtal) tablet 50 m g 50 mg Per G Tube BID valproic acid (as sodium salt) (DEPAKENE) 250 mg/5 mL (5 m L) oral solution 750mg 750 mg Per G Tube Q12H multivit-folic acid-herbal 275 (WE LLESSE PLUS) oral liquid 30 mL 30 mL Per GTube DAILY ALPRAZolam (XANAX) tablet 0 .25 mg 0.25 mg Per G Tube QPM albuterol-ipratropium (DUO-NEB) 2.5 MG-0 .5 MG/3 ML 3 mL Nebulization Q6H RT budesonide (PULMICORT) 500 mcg/2 ml nebu lizer suspension 500 mcg NebulizationBID RTAssessment/Plan:Hospital Problems Pan e Reviewed: 04/04/2019 Codes Class Noted POA Acute hypoxemic respiratory fa ilure (HCC) ICD-10-CM: J96.01ICD-9-CM: 518.81 03/25/2019 UnknownAssessment:Acute Hype rcapneic, Hypoxemic Respiratory FailureAspiration PneumoniaCOPDLeukocyto sis- trending downwardMalfunctioning jtube; tubing appears to be defectiveDysphagia ( s/p gtube conversion to jtube on 02/07/19)Anxiety DisorderHyperparathyroi d Unspecified typeHypercalcemiaMentally challengedSeizure disorderHyponatremia- stableHypophosphate Plan:Continue IV cefepime and vancomycin per IDVM, PRN BI PAP per pulmonaryMalfunctioning( new) PEJ due to kinked segments.F/u repeat KUBGI foll ow upIv steroids taper per pulmonarynebulizersContinue mucomyst neb ulizersCheck PTH- RPContinue sensiparRenal f/uReplace phosphorusFollow up culturesM onitor lytesIv fluids per renalPt has poor venous access; a mid line placement is m edically necessaryTeofilo Gonzalez 2018Time: 9:22 PM Name Value Range Interpretation Code Description Data Harirett rce(s) Supporting Document(s ) ID Date Data Source [id number] 04/05/2019 06:39:59 AM EST [facility] Name Value Range Interpretation Description Data Sup porting Code Source(s) Document(s ) Glucose 100 MG/DL 65-110 [facility] - Good [Mass/volume] Taoist in Blood by [facility] Automated test strip ID Date Data Source [id number] 04/05/2019 09:21:59 AM EST [facility] Name Value Range Interpretation Description Data Sup porting Code Source(s) Document(s ) Leukocytes 9.1 K/uL 4.8-10.6 [facility] - [#/volume] in Good Blood by [facility] Automated count [facility] Erythrocytes 4.02 4.70-6.0 Below low normal [facility] - [#/volume] in M/uL 0 Good Blood by [facility] Automated count Hospital Hemoglobin 12.5 14.0-18. Below low normal [facility] - [Mass/volume] in g/dL 0 [facility] Blood [facility] Hematocrit 38.7 % 42.0-52. Below low normal [facility] - [Volume 0 Good Fraction] of [facility] Blood by Hospital Automated count Erythrocyte mean 96.3 FL 81.0-94. Above high normal [facility] - corpuscular 0 Good volume [Entitic Taoist volume] by Hospital Automated count Erythrocyte mean 31.1 PG 27.0-35. [facility] - corpuscular 0 Good hemoglobin Taoist [Entitic mass] Hospital by Automated count Erythrocyte mean 32.3 30.7-37. [facility] - corpuscular g/dL 3 Good hemoglobin [facility] concentration Hospital [Mass/volume] by Automated count Erythrocyte 16.2 % 11.5-14. Above high normal [facility] - distribution 0 Good width [Ratio] by [facility] Automated count Hospital Platelets 335 K/uL 130-400 [facility] - [#/volume] in Good Blood by [facility] Automated count Hospital Platelet mean 9.6 FL 9.2-11.8 [facility] - volume [Entitic Good volume] in Blood [facility] by Automated Hospital count Nucleated 0.0 PER 0 [facility] - erythrocytes/100 100 WBC Good leukocytes [facility]ist [Ratio] in Blood Hospital Nucleated 0.00 0.0-0.01 [facility] - erythrocytes K/uL Good [#/volume] in [facility] Segmented 78 % 48.0-72. Above high normal [facility] - neutrophils/100 0 Good leukocytes in [facility] Lymphocytes/100 17 % 18.0-40. Below low normal [facility] - leukocytes in 0 [facility] Blood [facility] Monocytes/100 3 % 2.0-12.0 [facility] - leukocytes in [facility] Blood [facility] Eosinophils/100 0 % 0.0-7.0 [facility] - leukocytes in [facility] Blood [facility] Basophils/100 0 % 0.0-3.0 [facility] - leukocytes in [facility] Blood [facility] Myelocytes/100 2 % 0 Above high normal [facility] - leukocytes in Good Blood by Manual [facility] count Hospital Immature 0 % [facility] - granulocytes/100 Good leukocytes in [facility] Blood by Hospital Automated count Segmented 7.3 K/UL 2.3-7.6 [facility] - neutrophils Good [#/volume] in [facility] Lymphocytes 1.5 K/UL 0.9-4.2 [facility] - [#/volume] in [facility] Monocytes 0.3 K/UL 0.1-1.7 [facility] - [#/volume] in [facility] Eosinophils 0.0 K/UL 0.0-1.0 [facility] - [#/volume] in [facility] Basophils 0.0 K/UL [facility] - [#/volume] in [facility] Immature 0.0 K/UL [facility] - granulocytes Good [#/volume] in [facility] Blood by Hospital Automated count Erythrocyte [facility] - morphology Good finding [facility]ist [Identifier] in Hospital Blood Platelet [facility] - adequacy Good [Presence] in Taoist Blood by [facility] microscopy Differential [facility] - cell count Good method - [facility] ID Date Data Source [id number] 04/05/2019 07:07:57 AM EST [facility] Name Value Range Interpretation Description Data Sup porting Code Source(s) Document(s ) Sodium 137 136-145 [facility] - Good [Moles/volume] mmol/L [facility] in Serum or Hospital Plasma Potassium 4.4 3.5-5.1 [facility] - Good [Moles/volume] mmol/L [facility] in Serum or Hospital Plasma Chloride 96 98-107 Below low normal [facility] - Good [Moles/volume] mmol/L [facility] in Serum or Hospital Plasma Carbon 36 21-32 Above high normal [facility] - Good dioxide, total mmol/L Taoist [Moles/volume] Hospital in Serum or Plasma Anion gap in 10 10-20 [facility] - Good Serum or mmol/L [facility] Plasma Hospital Glucose 126 74-106 Above high normal [facility] - Good [Mass/volume] mg/dL [facility] in Serum or Hospital Plasma Urea nitrogen 12 mg/dL 7-18 [facility] - Good [Mass/volume] Taoist in Serum or Hospital Plasma Creatinine 0.38 0.70-1.3 Below low normal [facility] - Good [Mass/volume] mg/dL 0 [facility] in Serum or Hospital Plasma Glomerular >60 [facility] - Good filtration Taoist rate/1.73 sq M Hospital predicted among blacks [Volume Rate/Area] in Serum or Plasma by Creatinine-bas ed formula (MDRD) Glomerular >60 [facility] - Good filtration Taoist rate/1.73 sq M Hospital predicted among non-blacks [Volume Rate/Area] in Serum or Plasma by Creatinine-bas ed formula (MDRD) Calcium 9.6 8.5-10.1 [facility] - Good [Mass/volume] mg/dL [facility] in Serum or Hospital Plasma Phosphate 3.3 2.5-4.9 [facility] - Good [Mass/volume] mg/dL [facility] in Serum or Hospital Plasma Albumin 2.3 g/dL 3.5-4.7 Below low normal [facility] - Good [Mass/volume] [facility]ist in Serum or Hospital Plasma by Bromocresol purple (BCP) dye binding method ID Date Data Source [id number] 04/05/2019 07:07:57 AM EST [facility] Name Value Range Interpretation Description Data Sup porting Code Source(s) Document(s ) Magnesium 2.1 mg/dL 1.6-2.6 [facility] - Good [Mass/volume] Taoist in Serum or Hospital Plasma ID Date Data Source [id number] 04/05/2019 05:22:59 AM EST [facility] Problem: Pressure Injury - Risk ofGoal: *Prevention of pressure injuryDescriptionDocument Butch Scale a nd appropriate interventions in the flowsheet.Outcome: Progressing Towards G oalNote: Pressure Injury Interventions:Sensory Interventions: Ass ess changes in LOC, Assess need for specialty bed,Float heels, Check visual cues for p ain, Keep linens dry and wrinkle-free, Turnand reposition approx. every two tammy rs (pillows and wedges if needed)Moisture Interventions: Absorbent underpads, Appl y protective barrier, creamsand emollients, Check for incontinence Q2 hours and as n eeded, Maintain skinhydration (lotion/cream)Activity Interventions: As sess need for specialty bedMobility Interventions: Assess need for specialty bed, Float heels, Turn andreposition approx. every two hours(pillow and wedges)Nutrit ion Interventions: Document food/fluid/supplement intakeFriction and Shear Interventions: Apply protective barrier, creams andemollients, Foam dres sings/transparent film/skin sealants, Lift sheetProblem: Patient Education: Go to P atient Education ActivityGoal: Patient/Family EducationOutcome: Progressing Towards Go al Name Value Range Interpretation Code Description Data Harriett rce(s) Supporting Document(s ) ID Date Data Source [id number] 04/05/2019 12:00:16 AM [facility] Name Value Range Interpretation Description Data Sup porting Code Source(s) Document(s ) Glucose 118 MG/DL 65-110 Above high normal [facility] [Mass/volume] Taoist in Blood by Hospital Automated test strip ID Date Data Source [id number] 04/04/2019 08:02:30 PM [facility] Bedside and Verbal shift change report carol pham to Anastasiya PITTS (oncoming nurse) by Anirudh (offgoing nurse). Report included the fo llowing information SBAR, Kardex andMAR. Name Value Range Interpretation Code Description Data [facility] Supporting Document(s ) ID Date Data Source [id number] 04/04/2019 06:37:16 PM [facility] Progress NoteEvelio Vierachbein68 y.o.Adm it Date: 03/25/2019Active Problems: Acute hypoxemic respiratory failure (HCC) (02/2019)Subjective:Awake, no distressPertinent items are noted in the History of Present Illness.Objective:Visit VitalsBP 108/76 (BP 1 Location: Left arm , BP Patient Position: Head of bed elevated(Comment degrees))Pulse 89Temp 9 7.3 F (36.3 C)Resp 20Wt 46.8 kg (103 lb 1.6 oz)SpO2 100%BMI 18.86 kg/m Intake and Ou tput:Date 04/03/19 07 - 04/04/19 0659 04/04/19 07 - 04/05/19 0659Shift 07- 1858 0416-8014 24 Hour Total 6197-1362 7849-8988 24 Hour TotalINTAKEI.V.(mL/kg/ hr) 600(1.1) 600(0.5) Volume (0.45% sodium chloride infusion) 600 600NG/GT 1000 13 00 2300 Water Flush Volume (mL) (PEG/Gastrostomy Tube) 100 400 500 Medi cation Volume (PEG/Gastrostomy Tube) 100 100 200 Intake (ml) (PEG/Gastrostomy Tube) 800 800 1600Shift Total(mL/kg) 1000(21.1) 1900(40.6) 2900(62)OUTPUTUrine(mL/kg/hr) 3600(6.3) 1000(1.8) 4600(4.1) Urine Voided 3600 1000 4600Shift Total(mL/kg) 3600(75 .9) 1000(21.4) 4600(98.4)NET -2600 900 -1700Weight (kg) 47.4 46.8 46.8 46.8 46. 8 46.8Medications Reviewed:Current Facility-Administered MedicationsMedicat ion Dose Route Frequency Provider Last Rate Last Dose [START ON 04/05/2019] potassi um, sodium phosphates (NEUTRA-PHOS) packet 1Packet 1 Packet Per G Tube DAILY Radha León MD methylPREDNISolone (PF) (SOLU-MEDROL) injection 20 mg 20 mg Int raVENous [id number] helms MD 20 mg at 04/04/19 0937 white petrolatum (VASELIN E) ointment Topical DAILY Mili Hills DO 5 gat 04/04/19 1255 acetylcysteine (MUCOMYST) 100 mg/mL (10 %) nebulizer solution 400 mg 4 mLInhalation BID RT N Mili buchanan DO Stopped at 04/04/19 0800 sodium chloride (NS) flush 5-10 mL 5-1 0 mL IntraVENous PRN Jessie Neumann MD acetaminophen (TYLENOL) solution 650 mg 650 mg Per G Tube Q4H PRN Mili Hills DO cinacalcet (SENSIPAR) tablet 60 mg 60 mg Oral DAILY Mili Hills DO 60mg at 04/04/19 0934 [Held by provider] hepari n (porcine) injection 5,000 Units 5,000 UnitsSubCUTAneous Q12H Mili Hills DO Stopped at 03/30/19 0725 lamoTRIgine (LaMICtal) tablet 50 mg 50 mg Per G Tub e BID Mili Hills DO50 mg at 04/04/19 0934 valproic acid (as sodium salt) (DE PAKENE) 250 mg/5 mL (5 mL) oral solution 750mg 750 mg Per G Tube Q12H Maryam Hills irronni, DO 750 mg at 04/04/19 0934 multivit-folic acid-herbal 275 (WELLESSE PLUS) oral liquid 30 mL 30 mL Per GTube DAILY Mili Hills, DO 30 mL at 1255 ALPRAZolam (XANAX) tablet 0.25 mg 0.25 mg Per G Tube QPM Mili Hills DO0.25 mg at 04/04/19 1752 albuterol-ipratropium (DUO-NEB) 2.5 MG-0 .5 MG/3 ML 3 mL Nebulization Q6H RTMili Hills, 3 mL at 04/04/19 1339 bud esonide (PULMICORT) 500 mcg/2 ml nebulizer suspension 500 mcg NebulizationBID RT N Mili buchanan, DO 500 mcg at 04/04/19 0815Physical Exam:Physical Exam:Non verb alS1 s2 RRRResp: clearAbd: softExt: no edemaData Review:Recent Results (from th e past 24 hour(s))GLUCOSE, POC Collection Time: 04/04/19 12:25 AMResult Value Ref Range Glucose, bedside 113 (H) 65 - 110 MG/DLGLUCOSE, POC Collection Time: 04/04 6:21 AMResult Value Ref Range Glucose, bedside 95 65 - 110 MG/DLRENAL FUNCTION PANEL Collection Time: 04/04/19 7:15 AMResult Value Ref Range Sodium 133 (L) 136 - 145 mmol/L Potassium 4.6 3.5 - 5.1 mmol/L Chloride 93 (L) 98 - 107 mmol/L C O2 38 (H) 21 - 32 mmol/L Anion gap 7 (L) 10 - 20 mmol/L Glucose 97 74 - 106 mg/dL BUN 10 7 - 18 mg/dL Creatinine 0.39 (L) 0.70 - 1.30 mg/dL GFR est AA >60 >60 ml/min/1.7 3m2 GFR est non-AA >60 >60 ml/min/1.73m2 Calcium 10.0 8.5 - 10.1 mg/dL Phosphorus 2.8 2.5 - 4.9 mg/dL Albumin 2.3 (L) 3.5 - 4.7 g/dLMAGNESIUM Collection Time: 04/04 7:15 AMResult Value Ref Range Magnesium 1.9 1.6 - 2.6 mg/dLCBC WITH AUTOMATED DI FF Collection Time: 04/04/19 7:15 AMResult Value Ref Range WBC 9.6 4.8 - 10.6 K/uL RBC 4.02 (L) 4.70 - 6.00 M/uL HGB 12.5 (L) 14.0 - 18.0 g/dL HCT 39.0 (L) 42.0 - 52. 0 % MCV 97.0 (H) 81.0 - 94.0 FL MCH 31.1 27.0 - 35.0 PG MCHC 32.1 30.7 - 37.3 g/dL RDW 16.4 (H) 11.5 - 14.0 % PLATELET 237 130 - 400 K/uL MPV 10.9 9.2 - 11.8 FL NRBC 0.0 0 PER 100 WBC ABSOLUTE NRBC 0.00 0.0 - 0.01 K/uL NEUTROPHILS 86 (H) 48.0 - 72.0 % LY MPHOCYTES 8 (L) 18.0 - 40.0 % MONOCYTES 3 2.0 - 12.0 % EOSINOPHILS 0 0.0 - 7.0 % BASOP HILS 0 0.0 - 3.0 % METAMYELOCYTES 1 (H) 0 % MYELOCYTES 2 (H) 0 % IMMATURE GRANULOCYT ES 0 % ABS. NEUTROPHILS 8.5 (H) 2.3 - 7.6 K/UL ABS. LYMPHOCYTES 0.8 (L) 0.9 - 4.2 K/UL ABS. MONOCYTES 0.3 0.1 - 1.7 K/UL ABS. EOSINOPHILS 0.0 0.0 - 1.0 K/UL ABS. BASO PHILS 0.0 K/UL ABS. IMM. GRANS. 0.0 K/UL RBC COMMENTS NORMOCYTIC, NORMOCHROMIC PLATEL ET ESTIMATE ADEQUATE DF MANUALGLUCOSE, POC Collection Time: 04/04/19 11:32 AMResult Value Ref Range Glucose, bedside 110 65 - 110 MG/DLGLUCOSE, POC Collection Time: 1 06/05/18 4:05 PMResult Value Ref Range Glucose, bedside 115 (H) 65 - 110 MG/DLI mpression:Active Hospital Problems Diagnosis Date Noted Acute hypoxemic respiratory failure (HCC) 03/25/2019 HyponatremiaPlan:DC 1/2 NSDC free water flushesPEG to be flushed with NSFollow up labsSri Aditya Mau, MDDecekarel 2018 Name Value Range Interpretation Code Description Data Harriett rce(s) Supporting Document(s ) ID Date Data Source [id number] 04/04/2019 06:33:30 PM EST [facility] GI PROGRESS NOTENAME: Evelio Shukla hbeinDOB: 1950MRN: [id number]:Patient is tolerating tube feeds. A KUB with contrast is to be done to determineplacement of PEJ.Objective:V ITALS:Last 24hrs VS reviewed since prior progress note. Most recent are:Visit Vit alsBP 108/76 (BP 1 Location: Left arm, BP Patient Position: Head of bed elevated(C omment degrees))Pulse 89Temp 97.3 F (36.3 C)Resp 20Wt 46.8 kg (103 lb 1.6 oz)SpO2 100%BMI 18.86 kg/m Intake/Output Summary (Last 24 hours) at 04/04/2019 1822Last d daniel filed at 04/04/2019 0631Gross per 24 hourIntake 2800 mlOutput 4600 mlNet -180 0 mlPHYSICAL EXAM:Lungs: CTA Bilaterally.Heart: Regular rhythm,Abdo men: Soft, Non distended, Non tender. (+)Bowel sounds, no HSMLab Data Reviewed :Recent Labs 04/03/1906WBC 9.6 12.0*HGB 12.5* 12.4*HCT 39.0* 38.1*P LT 237 289Recent Labs 04/03/1906NA 133* 137K 4.6 4.2CL 93* 9 6*CO2 38* 36*BUN 10 12CREA 0.39* 0.46*GLU 97 129*PHOS 2.8 1.8*CA 10.0 10.2*Recent Lab s 630ALB 2.3* 2.3* Pati ent Active Problem ListDiagnosis Code Parae sophageal hiatal hernia K44.9 COPD (chronic obstructive pulmonary disease) ([facility]) J44 .9 Acute respiratory distress R06.03 Pneumonia J18.9 COPD exacerbation ([facility]) J44.1 Sepsis due to undetermined organism ([facility]) A41.9 Generalized anxiety disorde r F41.1 Acute respiratory failure with hypoxia ([facility]) J96.01 Pneumonia involvin g right lung J18.9 Hyponatremia E87.1 SOB (shortness of breath) R06.02 Pressure i njury of right heel, stage [address]) L89.612 Leg wound, right, initial encounter S81. 801A Acute hypoxemic respiratory failure ([facility]) J96.01Assessment: Tube feeds tole rated through PEJPlan: Await results of KUB with contrastSigned By: Nikos Martinez MD 04/04/2019 6:22 PM Name Value Range Interpretation Code Description Data Harriett rce(s) Supporting Document(s ) ID Date Data Source [id number] 04/04/2019 06:16:29 PM EST [facility] Calls placed to Dr. amaya to see if pt needs contrast with KUB. Waiting forcal back. Will continue to monitor pt Name Value Range Interpretation Code Description Data Harriett rce(s) Supporting Document(s ) ID Date Data Source [id number] 04/04/2019 04:20:05 PM EST [facility] Name Value Range Interpretation Description Data Sup porting Code Source(s) Document(s ) Glucose 115 MG/DL 65-110 Above high normal [facility] [Mass/volume] Taoist in Blood by Hospital Automated test strip ID Date Data Source [id number] 04/04/2019 02:37:09 PM EST [facility] Progress NoteMID-[facility] ,[facility].Krystian Monae MD., F.C.C.P.Stella Hamilton MD., F.CGualbertoCGualbertoP. [address] [place] [address] [place] [address] [phone]: Evelio Carlin Sex: male DOA: 03/25/2019D ate of : 1950 Age: 68 y.o. LOS: LOS: 10 daysSubjective:Mr. Guillermo buck IS AWAKE ,MENTALLY RETARDED , AWAITING SURGICAL REPLACEMENTJ TUBE CURRENT ONE HAVE FRACTURE . PEG TUBE OPENED UP BY G I , FEEDING STARTED . PATIENT IS COMFORTABLE .Mr. Carlin is a 68 y.o. year old male who i s being seen forACUTE RESPIRATORY FAILURE .PATIENT SENT BACK YESTERDAY WITHOUT REPLACING FRACTURED P E G TBE BYANAESTHESIA AND G I CONCERN OF ACUTE RESPIRATORY FAILURE . HE HAVE SEVERE COPD , HE IS CO2 RETAINER BUT MORE A WAKE AND ALERT . HE IS COMFORTABLE ON VM. TODAY SPO2 = 97 % HE TOLERATED PICC LINE INSERTION YESTERDAY. . Evelio Carlin is a 68 y.o. male with history of COPD, GERD,hyperparathyroidism, Parkinsonism, pneumonia, schizophrenia, and pulmonaryemboli with a surgical history of gastrostomy who presents [facility] the [facility] en[facility] via emergency medical services sent in from long-term for hypoxiaand possible pneumonia. The patient has multiple incidences of pneumonia in themest. The patient is nonverbal at baseline and cannot provide any history ofreview of systems at the time. PATIENT HAVE SEVERE CEREBRAL PALSY , MENTAL RETARDATION AND IS NON VERBAL .NO HX CANNOT BE CONFIRMED FROM PATIENT , CHART IS REVIEWED.MULTIPLE AD MISSIONS FOR ASPIRATION PNEUMONIA , HE IS BED RIDDEN . PATIENTT NOW IS ON BIPAP SUPPORT SPO2 = 96% ON FIO2 65% .PATIENT IS SLIGHTLY MORE AWAKE TODAY AND IS COMFORTABLE SPO2 0N 4 L N C = 92 % HAVE FRACTURED SEGMENT OF PEG TUBE NEAR INSERTION NEEDS REPLACEMENT . Past Medical History Past Medical History :Diagnosis Date Chronic obstructive pulmonary disease (HCC) Diaphragmatic hernia without obstruction and without gangrene GERD (gastroesophageal reflu x disease) Hyperparathyroidism (HCC) Mental retardation Parkinsonism due t o drug (HCC) Pneumonia Psychiatric disorder schizophrenia Pulmonary emb jennyfer (HCC) Schizophrenia (HCC) Past Surgical History Past Surgical His tory:Procedure Laterality Date HX GASTROSTOMY PEG- replaced 11/2018 We were asked to admit for work up and evaluation of the above problems. Soci al History Tobacco Use Smoking status: Never Smoker Smokeless tobacco: Never U sedSubstance Use Topics Alcohol use: No History reviewed. No pertinent family hi story. No Known Allergies Prior to Admission medicationsMedication Sig Star t Date End Date Taking? Authorizing Providerheparin sodium,porcine (HEPARIN, PORCINE,) 5,000 unit/mL injection 1 mL bySubCUTAneous route every twelve (12) h ours every twelve (12) hours. 03/17/19 Mili Hills DOmultivitamin (MULTI-D ELYN, WELLESSE) liqd 5 mL by Per G Tube route daily.03/17/19 Mili Hills DOace taminophen (TYLENOL) 32MG/ML soln solution Take 20.3 mL by mouth every four(4) hour s as needed for Pain or Fever. 03/17/19 Mili Hills DOvalproic acid, as sod ium salt, (DEPAKENE) 250 mg/5 mL (5 mL) soln oral [id number] mg by Per G Tube route every twelve (12) hours. Provider, Edieacetylcysteine (MUCOMYST) 100 mg/mL (10 %) nebulizer solution Take 4 mL byinhalation two (2) times a day. Provider, Edieclorazepate (TRANXENE) 3.75 mg tablet 1 Tab by Per G Tube route nightly. MaxDaily Amount: 3.75 mg. 12/30/18 Mili Hills DOcinacalcet (SENSIPA R) 30 mg tablet Take 2 Tabs by mouth daily.Patient taking differently: 30 mg daily. Via G tube 12/30/18 Mili HillsDOlamoTRIgine (LAMICTAL) 25 mg t ablet 2 Tabs by Per G Tube route two (2) times aday. 12/30/18 Mili Hills DOalbuterol-ipratropium (DUO-NEB) 2.5 mg-0.5 mg/3 ml nebu 3 mL by Nebulizationroute e very six (6) hours. Every 6 hours while awakePatient taking differently: 3 mL by Nebulization route every four (4) hours asneeded. Every 6 hours while awake 12/30 Mili Hills DObudesonide (PULMICORT) 0.5 mg/2 mL nbsp 2 mL by Neb ulization route two (2) timesa day. 12/30/18 Mili Hills, REVIEW OF SYSTEMS : SEVERE MENTAL RETARDATION , CANNOT DO ROS .General: negative for fever, chill s, sweats, weaknessEyes: negative for blurred vision, eye pain, loss of vision, diplop iaEar Nose and Throat: negative for rhinorrhea, pharyngitis, otalgia, tinnit us,speech or swallowing difficultiesRespiratory: negative for c ough, sputum production, SOB, wheezing, DAVALOS,pleuritic painCardiology: negative for chest pain, palpitations, orthopnea, PND, edema,syncopeGastrointestinal: negative for abdominal pain, N/V, dysphagia, change in bowelhabits, bleedingGenitourinary: nega tive for frequency, urgency, dysuria, hematuria, incontinenceMuskuloskeletal : negative for arthralgia, myalgiaHematology: negative for easy bruising, bleeding, ly mphadenopathyDermatological: negative for rash, ulceration, mole change, new lesio nEndocrine: negative for hot flashes or polydipsiaNeurological: negative for hea dache, dizziness, confusion, focal weakness,paresthesia, memory loss, gait disturbancePsychological: negative for anxiety, depression, agitation Objec tive:Vital Signs:Patient Vitals for the past 24 hrs: BP Temp Pulse Resp SpO2 Bbigur43 1339 - - - - 96 % -04/04/19 1129 112/64 97.1 F (36.2 C) 71 18 96 % - 0800 101/40 97 F (36.1 C) (!) 53 18 100 % -04/04/19 0608 - - - - - 46.8 kg ( 103 lb 1.6 oz)04/04/19 0130 - - - - 97 % -04/03/19 2304 120/66 98.1 F (36.7 C) 68 18 97 % -04/03/19 1958 100/63 97.7 F (36.5 C) 75 18 95 % -04/03/19 1559 98/6 6 97.1 F (36.2 C) 74 22 97 % -04/03/19 1513 - - - - 97 % -Pulse OX:SpO2 Readings fro m Last 6 Encounters:04/04/19 96%03/17/19 92%02/19/19 96%02/18/19 92%01/24/19 93%0 12/30/18 96%@LASTSAO2(6)@Physical Exam:AWAKE , NON VERBAL COMFORTABLE . Gen eral: Alert, cooperative, no distress, appears stated age. Head: N ormocephalic, without obvious abnormality, atraumatic. Eyes: Conjuncti vae/corneas clear. PERRL, EOMs intact. Nose: Nares normal. No drainage or sinus tenderness Throat: Lips, mucosa, and tongue normal Nec k: Supple, symmetrical, trachea midline, no adenopathy,thyroid: no enlargem ent/tenderness/nodules, no carotid bruit and no JVD. Lungs: NO WHEEZING , FEW , BASAL RALES + to auscultationbilaterally. Chest Wall: No tenderness or deformity. Heart: Regular rate and rhythm, S1, S2 normal, no murmur, click,rub or gallop. Abdomen: Soft, non-tender. Bowel sounds normal. No masses, No organomegaly. Extremities: CONTRACTED BODY ,Extremities normal, atraumatic, no cyanosisor edema. Pulses: 4+ bilaterally. Sk in: Skin color, texture, turgor normal. No rashes or lesions. Neurologic: CNII-X II intact. No focal motor or sensory deficit.Intake and Output:Last three patricio fts: 04/02 1901 - 04/04 0700In: 2900 [I.V.:600]Out: 5150 [Urine:5150]Lab Resu lts:Recent Results (from the past 24 hour(s))GLUCOSE, POC Collection Time: 4:06 PMResult Value Ref Range Glucose, bedside 88 65 - 110 MG/DLGLUCOS E, POC Collection Time: 04/04/19 12:25 AMResult Value Ref Range Glucose, bedsid e 113 (H) 65 - 110 MG/DLGLUCOSE, POC Collection Time: 04/04/19 6:21 AMResult Value Ref Range Glucose, bedside 95 65 - 110 MG/DLRENAL FUNCTION PANEL Collection Patria e: 04/04/19 7:15 AMResult Value Ref Range Sodium 133 (L) 136 - 145 mmol/L Potassiu m 4.6 3.5 - 5.1 mmol/L Chloride 93 (L) 98 - 107 mmol/L CO2 38 (H) 21 - 32 mmol/L Ani on gap 7 (L) 10 - 20 mmol/L Glucose 97 74 - 106 mg/dL BUN 10 7 - 18 mg/dL Creatinine 0.39 (L) 0.70 - 1.30 mg/dL GFR est AA >60 >60 ml/min/1.73m2 GFR est non-AA >60 >60 ml/min/1.73m2 Calcium 10.0 8.5 - 10.1 mg/dL Phosphorus 2.8 2.5 - 4.9 mg/dL Albumin 2 .3 (L) 3.5 - 4.7 g/dLMAGNESIUM Collection Time: 04/04/19 7:15 AMResult Value Ref Range Magnesium 1.9 1.6 - 2.6 mg/dLCBC WITH AUTOMATED DIFF Collection Time: 04/04/19 7:15 AMResult Value Ref Range WBC 9.6 4.8 - 10.6 K/uL RBC 4.02 (L) 4.70 - 6.00 M/uL HGB 12.5 (L) 14.0 - 18.0 g/dL HCT 39.0 (L) 42.0 - 52.0 % MCV 97.0 (H) 81.0 - 94.0 F L MCH 31.1 27.0 - 35.0 PG MCHC 32.1 30.7 - 37.3 g/dL RDW 16.4 (H) 11.5 - 14.0 % JOCELYN TELET 237 130 - 400 K/uL MPV 10.9 9.2 - 11.8 FL NRBC 0.0 0 PER 100 WBC ABSOLUTE NRBC 0.00 0.0 - 0.01 K/uL NEUTROPHILS 86 (H) 48.0 - 72.0 % LYMPHOCYTES 8 (L) 18.0 - 40.0 % MONOCYTES 3 2.0 - 12.0 % EOSINOPHILS 0 0.0 - 7.0 % BASOPHILS 0 0.0 - 3.0 % METAMYELOC YTES 1 (H) 0 % MYELOCYTES 2 (H) 0 % IMMATURE GRANULOCYTES 0 % ABS. NEUTROPHILS 8.5 (H ) 2.3 - 7.6 K/UL ABS. LYMPHOCYTES 0.8 (L) 0.9 - 4.2 K/UL ABS. MONOCYTES 0.3 0.1 - 1.7 K/UL ABS. EOSINOPHILS 0.0 0.0 - 1.0 K/UL ABS. BASOPHILS 0.0 K/UL ABS. IMM. GRANS. 0.0 K/UL RBC COMMENTS NORMOCYTIC, NORMOCHROMIC PLATELET ESTIMATE ADEQUATE DF MANUALGLUC OSE, POC Collection Time: 04/04/19 11:32 AMResult Value Ref Range Glucose, bedsid e 110 65 - 110 MG/DLABG:No results for input(s): PH, PCO2, PO2, HCO3, FIO2 in t he last 72 hours.Recent Glucose Results:Lab ResultsComponent Value Date/Time GLU 97 04/04/2019 07:15 AM GLUCPOC 110 04/04/2019 11:32 AM GLUCPOC 95 04/04/2019 06:21 AM GLUCPOC 113 (H) 04/04/2019 12:25 AM@LABAPCYTOINTERPRETATION@CULTURESAll M icro Results Procedure Component Value Units Date/Time CULTURE, BLOOD [[id number]] Col lected: 03/25/195 Order Status: Completed Specimen: Blood Updated: 620 Special Requests: NO SPECIAL REQUESTS Culture result: NO GROWTH 5 DA YS CULTURE, BLOOD [[id number]] Collected: 03/25/19 0310 Order Status: Completed S pecimen: Blood Updated: 03/30/19620 Special Requests: NO SPECIAL REQUESTS C ulture result: NO GROWTH 5 DAYSImages:@IMAGESENCORD@Xr Abd (kub)Res ult Date: 04/02/2019KUB 2 view(s) History: Evaluate J-tube. Comparison: 11/22/2018. There is a newJ-tube overlying the mid abdomen with kinking involving its super ior andinferior portion overlying the mid abdomen. These findings were discussed w sunil Mora at 3:40 PM today.. There is mild ileus of the small bowel butthere i s no evidence of obstruction, radiopaque gallstones, or left kidneystones or an a ppendicolith. There are possible right kidney stones. Absence ofan appendicolith it do es not exclude appendicitis. CT is suggested if clinicallyindicated. Old rib fracture s are noted.IMPRESSION: Kinking of J- tube in 2 locations. Possible right kidney stone sIleus.Ir Picc Insert Wo Port Over 5 Years Wo ImgResult Date: 04/01/2019IR PICC INSERT WO PORT OVER 5 YEARS WO IMG CLINICAL INDICATION PROVIDED.:"midline." Medical necessity for vascular access. PROCEDURE: After beinginformed of the risks, benefi ts, potential alternatives to the procedure theinformed consent was obtained. The pa tient was placed on the table the supineposition. The right upper extremit y was prepped and draped in the normal sterilefashion. Ultrasound interrogation was performed of the right upper extremity.Images were obtained. A locat ion was chosen over the right brachial vein abovethe antecubital fossa. Lidocaine so lution was used to anesthetize the scan.Access was gained under ultrasound guidance using a 21-gauge thin-walled needle.A 0.018 a wire was advanced under fluoroscopic guidance into the right axillaryvein. The needle was exchanged o lani a wire for the midline dilator and sheath.The dilator and wire were removed leaving the sheath in situ. Through the sheatha 5 Congolese double-lumen 20 cm midl ine catheter was placed. The peel-away sheathwas removed. The catheter was sewn into position using 2-0 silk sutures. Thepatient tolerated the procedure. Ther e were no complications at the time of theprocedure. FINDINGS: Ultrasound inter rogation revealed a widely patent brachialvein above the antecubital fossa . A 5 Congolese dual-lumen 20 cm midline catheterwas placed. The tip was placed i n good position over the right axillary vein.IMPRESSION: 5 Congolese dual-lumen mid line catheter placed with tip positioned overthe right axillary vein.Ct Chest Wo ContResult Date: 03/14/2019History: Respiratory difficulty. FINDINGS: CT sca nning of the chest wasperformed helically from lung apices to the upper abdomen wi thout intravenouscontrast dural. Sagittal and coronal reconstructed images are submitt ed.Scanning was performed utilizing dose lowering techniques and is compared to t [facility]. Evaluation of thoracic vascular structures is limitedw ithout intravenous contrast material. There is, however, no definite CTevidence of d issection or focal aneurysmal dilatation. Some peripheralcalcification is noted. T here is no evidence of any pathologically enlargedlymph node within the visualized portions of the mediastinum or axillae. Somenonpathologically enlarged lymph nod es are seen. Again noted is elevation of theleft hemidiaphragm. A left small pleu ral effusion is noted as well asatelectatic change at the left lung base. Patchy opa [place] at the right lung baseis compatible with a right basilar infiltrate. There is tamie e patchy opacitywithin the right middle lobe as well. The right basal infiltrate is g reater insize than that seen previously. The pleural effusion is smaller. The rightmi ddle lobe infiltrate is similar. Limited evaluation of upper abdominalstructures reveals a tube within the stomach directed toward the duodenum.Diffuse hypertrophic degenerative changes are noted of the thoracic spine. Thereis again noted to b e shift of mediastinal structures to the right.IMPRESSION: Worsening right lower lobe infiltrate. Slight worsening of the rightmiddle lobe infiltrate. Improved le ft lung.Xr Chest PortResult Date: 03/25/2019CHEST one view HISTORY: Fever. Reflux. Gastrostomy. COMPARISON: 03/11/2019.There is a poor inspiratory e ffort which compromises this interpretation. Arepeat study is suggested. There is di scoid atelectasis and/or left lower lobeinfiltrate.There is no gross evidenc e of congestion, other infiltrates,effusions or pneumothorax.IMPRESSION: Possible lef t lower lobe infiltrate. Poor inspiratory effort.Xr Chest PortResult Date: 019CHEST one view HISTORY: Fever. COPD. Reflux. COMPARISON: 02/12/2019. Anadditi onal view was obtained. A tubular structure overlies the stomach andmidabdomen with some gastric distention and elevation of the left hemidiaphragm.There is a poor inspi ratory effort which compromises this interpretation. Arepeat study is suggest ed. .There is no gross evidence of congestion,infiltrates, effusions or pne umothorax. Old rib fractures are noted.IMPRESSION: No evidence of acute c ardiopulmonary disease. Poor inspiratoryeffort. Gastric distention.Me dications:Current Facility-Administered MedicationsMedication Dose Route Frequen cy methylPREDNISolone (PF) (SOLU-MEDROL) injection 20 mg 20 mg IntraVENous Q12H potassium, sodium phosphates (NEUTRA-PHOS) packet 2 Packet 2 Packet Per GTube BID white petrolatum (VASELINE) ointment Topical DAILY 0.45% sodium chloride inf usion 50 mL/hr IntraVENous CONTINUOUS acetylcysteine (MUCOMYST) 100 mg/mL (10 %) nebulizer solution 400 mg 4 mLInhalation BID RT sodium chloride (NS) flush 5-10 mL 5-10 mL IntraVENous PRN acetaminophen (TYLENOL) solution 650 mg 650 mg Per G Tube Q4H PRN cinacalcet (SENSIPAR) tablet 60 mg 60 mg Oral DAILY [Held by provider] heparin (porcine) injection 5,000 Units 5,000 UnitsSubCUTAneous Q12H lamoTRIgin e (LaMICtal) tablet 50 mg 50 mg Per G Tube BID valproic acid (as sodium salt) (DEP AKENE) 250 mg/5 mL (5 mL) oral solution 750mg 750 mg Per G Tube Q12H multivit-folic acid-herbal 275 (WELLESSE PLUS) oral liquid 30 mL 30 mL Per GTube DAILY ALPRAZolam (XANAX) tablet 0.25 mg 0.25 mg Per G Tube QPM albuterol-ipratropium (DUO-NEB) 2.5 MG-0.5 MG/3 ML 3 mL Nebulization Q6H RT budesonide (PULMICORT) 500 mcg/2 ml nebu lizer suspension 500 mcg NebulizationBID RTActive Problems: Acute hypoxemic resp iratory failure (HCC) (03/25/2019)Assessment:1. ACUTE HYPERCAP NICOLAS AND HYPOXIC RESPIRATORY FAILURE2. SEVER COPD STABLE 3. ASPIRATION PNEUMONIA 4. SMALL ATELECTASIS L L L5. FRACTURED P E G6. PARKINSONISM7. SEVERE MENTAL RETARDATION8. KYPHOSIS9. HYPOVENTILATION 10. METABOLIC ENCEPHALOPATHY IMPROVING Pl an:1. TOLERATING P E G FEEDING2. CHANGE LOW FOLW O2 4 L N C DAY TIME AT NIGHT BIPAP3. F/ U CULTURES 4. AGREE WITH I V CEFEPIME AND VANCOMYCI N5. DECREASE I V SOLUMEDROL 20 MG Q 24 HR6. DUO NEB QID7. I V FLUIDS8. CHEST PT 9. SOME IMPROVEMENT NOTED CONT SAME TREATMENT 10. AWAITING TO GET NENA GICALLY PLACED J TUBE CURRENT ONE HAVEFRACTURE PER Carol Monae MD FGualbertoC.CGualbertoPGualbertoApril 04, 20192:29 PM Name Value Range Interpretation Code Description Data Harriett rce(s) Supporting Document(s ) ID Date Data Source [id number] 04/04/2019 02:30:38 PM [facility] Problem: Pressure Injury - Risk ofGoal: *Prevention of pressure injuryDescriptionDocument Butch Scale a nd appropriate interventions in the flowsheet.Note: Pressure Injury Interven tions:Sensory Interventions: Assess changes in LOCMoisture Interventions: Check for incontinence Q2 hours and as needed,Internal/External urinary devices Activity Interventions: Pressure redistribution bed/mattress(bed type)Mob ility Interventions: Pressure redistribution bed/mattress (bed type)Nutrition Interve ntions: Document food/fluid/supplement intakeFriction and Shear Interventions: Apply protective barrier, creams andemollientsProblem: Falls - Risk ofGoa l: *Absence of FallsDescriptionDocument Samra Fall Risk and appropriate interve ntions in the flowsheet.Outcome: Progressing Towards GoalNote: Fall Risk Intervention s:Mentation Interventions: Bed/chair exit alarmMedication Interventions: Bed/chair exit alarmElimination Interventions: Bed/chair exit alarm, Call light in reac h, Toiletingschedule/hourly roundsProblem: Patient Education: Go to Patient Educati on ActivityGoal: Patient/Family EducationOutcome: Progressing Towards Go alProblem: Seizure Disorder (Adult)Goal: *STG: Remains free of seizure activityOu tcome: Progressing Towards GoalProblem: Non-Violent RestraintsGoal: *Removal fro m restraints as soon as assessed to be safeOutcome: Progressing Towards GoalGoa l: *No harm/injury to patient while restraints in useOutcome: Progressing To wards Goal Name Value Range Interpretation Code Description Data Harriett rce(s) Supporting Document(s ) ID Date Data Source [id number] 04/04/2019 02:28:37 PM [facility] Problem: Pressure Injury - Risk ofGoal: *Prevention of pressure injuryDescriptionDocument Butch Scale a nd appropriate interventions in the flowsheet.Note: Pressure Injury Interven tions:Sensory Interventions: Assess changes in LOCMoisture Interventions: Check for incontinence Q2 hours and as needed,Internal/External urinary devices Activity Interventions: Pressure redistribution bed/mattress(bed type)Mob ility Interventions: Pressure redistribution bed/mattress (bed type)Nutrition Interve ntions: Document food/fluid/supplement intakeFriction and Shear Interventions: Apply protective barrier, creams andemollientsProblem: Falls - Risk ofGoa l: *Absence of FallsDescriptionDocument Samra Fall Risk and appropriate interve ntions in the flowsheet.Outcome: Progressing Towards GoalNote: Fall Risk Intervention s:Mentation Interventions: Bed/chair exit alarmMedication Interventions: Bed/chair exit alarmElimination Interventions: Bed/chair exit alarm, Call light in reac h, Toiletingschedule/hourly roundsProblem: Patient Education: Go to Patient Educati on ActivityGoal: Patient/Family EducationOutcome: Progressing Towards Go alProblem: Seizure Disorder (Adult)Goal: *STG: Remains free of seizure activityOu tcome: Progressing Towards Goal Name Value Range Interpretation Code Description Data Harriett rce(s) Supporting Document(s ) ID Date Data Source [id number] 04/04/2019 11:45:30 AM EST [facility] Name Value Range Interpretation Description Data Sup porting Code Source(s) Document(s ) Glucose 110 MG/DL 65-110 [facility] [Mass/volume] [facility] in Blood by Hospital Automated test strip ID Date Data Source [id number] 04/04/2019 09:19:29 AM EST [facility] ID Progress Note04/04/2019Subjective:Betty ient with history of MR,COPD,recurrent aspiration pneumonia,dysphagia s/p pegpl acement was transferred from the long-term for respiratory distress,lowoxygen satur ation of 77% on 4 L nasal canula.Patient is non verbal,more awake today butunable to provide any historyAwake non verbal,unale to provide history,for midline insertionS/p PICC, afebrile, WBC WNLNO events overnightBlood culture no growth.Afebril eAwaiting Surgical J tube placement as current on with leak and crack in theinl et portObjective:Review of SystemsUnable to provide.Vitals:Patient Vitals for the me st 24 hrs: BP Temp Pulse Resp SpO2 Ydqhez33/21/19 0800 101/40 97 F (36.1 C) (!) 53 18 100 % -04/04/19 0608 - - - - - 46.8 kg (103 lb 1.6 oz)04/04/19 0130 - - - - 97 % -04/03/19 2304 120/66 98.1 F (36.7 C) 68 18 97 % -04/03/19 1958 100/63 97. 7 F (36.5 C) 75 18 95 % -04/03/19 1559 98/66 97.1 F (36.2 C) 74 22 97 % -03/16 1513 - - - - 97 % -04/03/19 1205 110/73 97.6 F (36.4 C) 66 20 94 % -Tmax: Tem p (24hrs), Av.5 F (36.4 C), Min:97 F (36.1 C), Max:98.1 F(36.7 C)Physical Exam:General: Awake, nonverbal cooperative, no distress, appears stated age.Eyes: C onjunctivae/corneas clear. PERRLNeck: Supple, symmetrical, trachea midline, no adenopa thyLungs: Bilateral breath sounds with basal crackles..Heart: Regular rate and rhythm, S1, S2 normal, no murmurAbdomen: Soft, non-tender. Bowel sounds normal. N o masses, Noorganomegaly.peg+Back: No CVA tenderness.Extremities: Chronic lymphede ma, no cyanosisPulses: 2+ and symmetric all extremities.Skin: Skin color, texture, t urgor normal. No rashes or lesionsCurrent Facility-Administered MedicationsMedicat ion Dose Route Frequency methylPREDNISolone (PF) (SOLU-MEDROL) injection 20 mg 20 m g IntraVENous Q12H potassium, sodium phosphates (NEUTRA-PHOS) packet 2 Packet 2 Packet Per GTube BID white petrolatum (VASELINE) ointment Topical DAILY 0.4 5% sodium chloride infusion 50 mL/hr IntraVENous CONTINUOUS acetylcysteine ( MUCOMYST) 100 mg/mL (10 %) nebulizer solution 400 mg 4 mLInhalation BID RT sodium ch loride (NS) flush 5-10 mL 5-10 mL IntraVENous PRN acetaminophen (TYLENOL) solution 650 mg 650 mg Per G Tube Q4H PRN cinacalcet (SENSIPAR) tablet 60 mg 60 m g Oral DAILY [Held by provider] heparin (porcine) injection 5,000 Units 5,000 U nitsSubCUTAneous Q12H lamoTRIgine (LaMICtal) tablet 50 mg 50 mg Per G Tube BID valp roic acid (as sodium salt) (DEPAKENE) 250 mg/5 mL (5 mL) oral solution 750mg 750 mg Per G Tube Q12H multivit-folic acid-herbal 275 (WELLESSE PLUS) oral liq uid 30 mL 30 mL Per GTube DAILY ALPRAZolam (XANAX) tablet 0.25 mg 0.25 mg Per G Tu be QPM albuterol-ipratropium (DUO-NEB) 2.5 MG-0.5 MG/3 ML 3 mL Nebulization Q6H RT budesonide (PULMICORT) 500 mcg/2 ml nebulizer suspension 500 mcg Nebulizati onBID RTLabs:Recent Labs 04/03/1906WBC 9.6 12.0* 1 1.9*HGB 12.5* 12.4* 12.7*PLT 237 289 279BUN 10 12 15CREA 0.39* 0.46* 0.46*Cultures:L ab ResultsComponent Value Date/Time Culture result: NO GROWTH 5 DAYS 03/25/2019 03:1 0 AM Culture result: NO GROWTH 5 DAYS 03/25/2019 02:55 AM Culture result: NO G ROWTH 5 DAYS 03/11/2019 04:14 AM Culture result: NO GROWTH 5 DAYS 03/11/2019 04:1 4 AMRadiology:No results found.Assessment: Recurrent aspiration pneumonia. Acute C OPD exacerbation Acute hypercapnic respiratory failure. Dysphagia s/p peg placement.. Atelectasis sepsis ruled out Plan:1. Continue IV cefepime and vancomy dominick x 2 more daysMahlet eHnri, MDDecember AM Name Value Range Interpretation Code Description Data Harriett rce(s) Supporting Document(s ) ID Date Data Source [id number] 04/04/2019 07:44:12 AM EST [facility] Bedside and Verbal shift change report carol ivten to aneta RN (oncoming nurse) by NANCY Steel(offgoing nurse). Report carol pham with SBAR, Kardex, Intake/Output, MAR and RecentResults. Name Value Range Interpretation Code Description Data Harriett rce(s) Supporting Document(s ) ID Date Data Source [id number] 04/04/2019 11:14:13 AM EST [facility] Name Value Range Interpretation Description Data Sup porting Code Source(s) Document(s ) Leukocytes 9.6 K/uL 4.8-10.6 [facility] - [#/volume] in Good Blood by [facility] Erythrocytes 4.02 4.70-6.0 Below low normal [facility] - [#/volume] in M/uL 0 Good Blood by [facility] Hemoglobin 12.5 14.0-18. Below low normal [facility] - [Mass/volume] in g/dL 0 Good Blood [facility] Hematocrit 39.0 % 42.0-52. Below low normal [facility] - [Volume 0 Good Fraction] of [facility] Blood by Hospital Automated count Erythrocyte mean 97.0 FL 81.0-94. Above high normal [facility] - corpuscular 0 Good volume [Entitic Taoist volume] by Hospital Automated count Erythrocyte mean 31.1 PG 27.0-35. [facility] - corpuscular 0 Good hemoglobin Taoist [Entitic mass] [facility] by Automated count Erythrocyte mean 32.1 30.7-37. [facility] - corpuscular g/dL 3 Good hemoglobin Taoist concentration [facility] [Mass/volume] by Automated count Erythrocyte 16.4 % 11.5-14. Above high normal [facility] - distribution 0 Good width [Ratio] by [facility] count [facility] Platelets 237 K/uL 130-400 [facility] - [#/volume] in Good Blood by [facility] Platelet mean 10.9 FL 9.2-11.8 [facility] - volume [Entitic Good volume] in Blood [facility] by Automated Hospital count Nucleated 0.0 PER 0 [facility] - erythrocytes/100 100 WBC Good leukocytes [facility] [Ratio] in Blood Hospital Nucleated 0.00 0.0-0.01 [facility] - erythrocytes K/uL Good [#/volume] in [facility] Segmented 86 % 48.0-72. Above high normal [facility] - neutrophils/100 0 Good leukocytes in [facility] Lymphocytes/100 8 % 18.0-40. Below low normal [facility] - leukocytes in 0 [facility] Monocytes/100 3 % 2.0-12.0 [facility] - leukocytes in [facility] Eosinophils/100 0 % 0.0-7.0 [facility] - leukocytes in [facility] Basophils/100 0 % 0.0-3.0 [facility] - leukocytes in [facility] Metamyelocytes/1 1 % 0 Above high normal [facility] - 00 leukocytes in [facility] Blood by Manual [facility] count Hospital Myelocytes/100 2 % 0 Above high normal [facility] - leukocytes in [facility] Blood by [facility] count Hospital Immature 0 % [facility] - granulocytes/100 Good leukocytes in [facility] Blood by Hospital Automated count Segmented 8.5 K/UL 2.3-7.6 Above high normal [facility] - neutrophils Good [#/volume] in [facility] Lymphocytes 0.8 K/UL 0.9-4.2 Below low normal [facility] - [#/volume] in [facility] Monocytes 0.3 K/UL 0.1-1.7 [facility] - [#/volume] in [facility] Eosinophils 0.0 K/UL 0.0-1.0 [facility] - [#/volume] in [facility] Basophils 0.0 K/UL [facility] - [#/volume] in [facility] Immature 0.0 K/UL [facility] - granulocytes Good [#/volume] in [facility] Blood by Hospital Automated count Erythrocyte [facility] - morphology Good finding [facility] [Identifier] in Hospital Blood Platelet [facility] - adequacy Good [Presence] in [facility] Blood by [facility] microscopy Differential [facility] - cell count Good method - Blood [facility] ID Date Data Source [id number] 04/04/2019 07:51:52 AM EST [facility] Name Value Range Interpretation Description Data Sup porting Code Source(s) Document(s ) Sodium 133 136-145 Below low normal [facility] - Good [Moles/volume] mmol/L [facility] in Serum or Hospital Plasma Potassium 4.6 3.5-5.1 [facility] - Good [Moles/volume] mmol/L [facility] in Serum or Hospital Plasma Chloride 93 98-107 Below low normal [facility] - Good [Moles/volume] mmol/L [facility] in Serum or Hospital Plasma Carbon 38 21-32 Above high normal [facility] - Good dioxide, total mmol/L [facility] [Moles/volume] Hospital in Serum or Plasma Anion gap in 7 mmol/L 10-20 Below low normal [facility] - Go od Serum or [facility] Plasma Hospital Glucose 97 mg/dL 74-106 [facility] - Good [Mass/volume] [facility] in Serum or Hospital Plasma Urea nitrogen 10 mg/dL 7-18 [facility] - Good [Mass/volume] [facility] in Serum or Hospital Plasma Creatinine 0.39 0.70-1.3 Below low normal [facility] - Good [Mass/volume] mg/dL 0 [facility] in Serum or Hospital Plasma Glomerular >60 [facility] - Good filtration Taoist rate/1.73 sq M Hospital predicted among blacks [Volume Rate/Area] in Serum or Plasma by Creatinine-bas ed formula (MDRD) Glomerular >60 [facility] - Good filtration Taoist rate/1.73 sq M Hospital predicted among non-blacks [Volume Rate/Area] in Serum or Plasma by Creatinine-bas ed formula (MDRD) Calcium 10.0 8.5-10.1 [facility] - Good [Mass/volume] mg/dL [facility] in Serum or Hospital Plasma Phosphate 2.8 2.5-4.9 [facility] - Good [Mass/volume] mg/dL [facility] in Serum or Hospital Plasma Albumin 2.3 g/dL 3.5-4.7 Below low normal [facility] - Good [Mass/volume] [facility] in Serum or Hospital Plasma by Bromocresol purple (BCP) dye binding method ID Date Data Source [id number] 04/04/2019 07:51:52 AM EST [facility] Name Value Range Interpretation Description Data Sup porting Code Source(s) Document(s ) Magnesium 1.9 mg/dL 1.6-2.6 [facility] - Good [Mass/volume] [facility] in Serum or Hospital Plasma ID Date Data Source [id number] 04/04/2019 06:40:15 AM EST [facility] Name Value Range Interpretation Description Data Sup porting Code Source(s) Document(s ) Glucose 95 MG/DL 65-110 [facility] - [facility] [Mass/volume] [facility] in Blood by Hospital Automated test strip ID Date Data Source [id number] 04/04/2019 05:57:06 AM EST [facility] Progress NotePatient: Evelio Carlin Sex: male DOA: 03/25/2019Date of : 1950 Age: 68 y.o. :[id number]:Reyes Carlin is 68 y.o. male with vm pulled off,appearing comfortable ,hisO2 SAT at 92 %. He is s/p endoscopic placement of jtube over PEG and removalof the current defective tube on 04/01/19.RN reporting she is unable to access the jtube port. Sh e is encounteringresistance upon inserting the feeding tube catheter into the jtube port. Thepatient is currently sandhya TF via the side port.KUB on yesterday showed jt ube kinkingSeen by gi earlier today, attempts made to straighten the tube. Unclear, if entirely unkinked. A f/u KUB was orderedThe patient was seen by general surgery karoline oro this admission for eval ofsurgical placement of a Jtube. The surgeon is rec placement of PEJ tube rathersubjection the patient to surgery. The patient is cons idered a high risksurgical candidate.Pt has an occasional moist cough today. He is not expectorating.He is s/p EGD with positioning of jenunal feeding tube and endoclipping on03/26/19Pt with TF leaking and was found with crack in [facility] tube[facility] weldon [facility] use the side port. He is sandhya TF.For jtube placem ent in morning. He has medical history of Dysphagia, recurrent aspiration pneumoni a, s/p g/tplacement 11/17/18 and conversion to jtube on02/07/19, hyperlipidemia,hyperpa rathyroid, unspecified,seizure, large hiatalhernia, anxiety disorder, personal history of pulmonary embolus,COPD, GERD,Schizophrenia unspecified, Kyphosis , Parkinson disease, Severe intellectualdisabilities, Contractures a nd Generalized muscle weakness.As per the long-term transfer record, the patien t was transferred to the EDfor Hypoxia, he was found with O2 SAT 77 % on O2 NC 4 L PM and tachypneic. Hewas later placed on NRBM. Patient has a clogged jtube and t he long-term hasbeen using the gtube site for feedings and administration of medic ations.Pt was seen at [facility] by fatemeh Shabazz and plans were for jtube placement, that wasscheduled on the same day as this hospital admission.The patient is nonv erbal and unable to participate with his history.Patient was admitted with encoun ter diag of Acute Hypercapneic and Hypoxemicrespiratory failure and aspirat ion pneumonia. Also, diag of COPD, Leukocytosis,Malfunctioning jtube, dysph agia, Anxiety Disorder, contractures and Mentallychallenged are pertinent to this visit. 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 Pupils are equalThroat: Lips, mucosa, and tongue normal. No Thr ushNeck: Supple, symmetrical, no adenopathy, no carotid bruit and no JVD .Lungs: Clear to auscultation bilaterally. No Wheezing or Rhonchi. No rales.Chest w all: No Accessory muscle use.Heart: Regular rate and rhythm, no murmur, or rub.Abdomen: Positive peg in place, non-tender. Not distended. Bowel sounds normal. No massesExtremities: Positive contractures lower limbs, atraumatic, No cyanosis. Noedema. No clubbingSkin: Warm and dry. No rashes or lesions. Not JaundicedLymph nodes: Cervical, supraclavicular normal.Psych: Not anxi ous or agitated.Neurologic: EOMs intact. No facial asymmetry. Non verbal. Generaliz ed weakness,Alert and Awake.Intake and Output:Current Shift: 04/03 1901 - 03/16 1 0700In: 100Out: -Last three shifts: 04/02 701 - 04/03 1900In: 1000Out: 4400 [Urin e:4400]Lab/Data Reviewed:Recent Days:Recent Labs 04/02/190504/01/19 0600WBC 12.0* 11.9* 22.1*HGB 12.4* 12.7* 13.1*HCT 38.1* 39.9* 40.5*PLT 289 279 31 5Recent Labs 04/02/1905NA 137 136 -- 134*K 4.2 4.2 -- 3.9CL 96* 95* -- 97*CO2 36* 35* 39* 36*GLU 129* 114* -- 278*BU N 12 15 -- 12CREA 0.46* 0.46* -- 0.48*CA 10.2* 10.5* -- 10.6*MG 2.2 2.1 -- 1. 9PHOS 1.8* 2.4* -- 2.4*ALB 2.3* 2.3* -- 2.5*Recent Labs 2PH 7.50*PCO 2 48PO2 76*HCO3 37*FIO2 40.0CULTURE, BLOOD [[id number]] (Order [id number])MicrobiologyD ate: 03/25/2019 Department: [facility] Med Surg Released By/Authorizing:Daniela Neumann MD (auto-released)Specimen Information: Blood Component Value Flag Ref Range Units StatusSpecial Requests: FinalNO SPECIAL REQUESTSCulture result: NO GROWTH 5 DAYSCULTURE, BLOOD [[id number]] (Order [id number])MicrobiologyDate: 03/25 Department: [facility] Med Surg Released By/Authorizing:Jessie Neumann MD (auto-released)Specimen Information: Blood Component Value Flag Ref Range Units Sta tusSpecial Requests: FinalNO SPECIAL REQUESTSCulture result: NO GROWTH 5 DAYS FinalXr Abd (kub)Result Date: 04/02/2019KUB 2 view(s) History: Evalua te J-tube. Comparison: 11/22/2018. There is a newJ-tube overlying the mid abdomen with kinking involving its superior andinferior portion overlying the mid abdomen. These findings were discussed withmale nurse Mora at 3:40 PM today.. There is mild ileus o f the small bowel butthere is no evidence of obstruction, radiopaque gallstones, or l eft kidneystones or an appendicolith. There are possible right kidney stones. Absenc e ofan appendicolith it does not exclude appendicitis. CT is suggested if clinica llyindicated. Old rib fractures are noted.IMPRESSION: Kinking of J-tube in 2 locations. Possible right kidney stonesIleus.Ir Picc Insert Wo Port Over 5 Years Wo ImgResult Date: 04/01/2019IR PICC INSERT WO PORT OVER 5 YEARS WO IMG CLINI INEZ INDICATION PROVIDED.:"midline." Medical necessity for vascular access. PROCEDURE : After beinginformed of the risks, benefits, potential alternatives to the procedure theinformed consent was obtained. The patient was placed on the table the supinepositi on. The right upper extremity was prepped and draped in the normal sterilefashion. Ult rasound interrogation was performed of the right upper extremity.Images were obtain ed. A location was chosen over the right brachial vein abovethe antecubital fossa . Lidocaine solution was used to anesthetize the scan.Access was gained under ultraso und guidance using a 21-gauge thin-walled needle.A 0.018 a wire was advanced under fluoroscopic guidance into the right axillaryvein. The needle was exchanged o lani a wire for the midline dilator and sheath.The dilator and wire were removed leaving the sheath in situ. Through the sheatha 5 Congolese double-lumen 20 cm midl ine catheter was placed. The peel-away sheathwas removed. The catheter was sewn into position using 2-0 silk sutures. Thepatient tolerated the procedure. Ther e were no complications at the time of theprocedure. FINDINGS: Ultrasound inter rogation revealed a widely patent brachialvein above the antecubital fossa . A 5 Congolese dual-lumen 20 cm midline catheterwas placed. The tip was placed i n good position over the right axillary vein.IMPRESSION: 5 Congolese dual-lumen mid line catheter placed with tip positioned overthe right axillary vein.Ct Chest Wo ContResult Date: 03/14/2019History: Respiratory difficulty. FINDINGS: CT sca nning of the chest wasperformed helically from lung apices to the upper abdomen wi thout intravenouscontrast dural. Sagittal and coronal reconstructed images are submitt ed.Scanning was performed utilizing dose lowering techniques and is compared to t leeannr study of 01/15/2019. Evaluation of thoracic vascular structures is limitedw ithout intravenous contrast material. There is, however, no definite CTevidence of d issection or focal aneurysmal dilatation. Some peripheralcalcification is noted. T here is no evidence of any pathologically enlargedlymph node within the visualized portions of the mediastinum or axillae. Somenonpathologically enlarged lymph nod es are seen. Again noted is elevation of theleft hemidiaphragm. A left small pleu ral effusion is noted as well asatelectatic change at the left lung base. Patchy opa city at the right lung baseis compatible with a right basilar infiltrate. There is tamie e patchy opacitywithin the right middle lobe as well. The right basal infiltrate is g reater insize than that seen previously. The pleural effusion is smaller. The rightmi ddle lobe infiltrate is similar. Limited evaluation of upper abdominalstructures reveals a tube within the stomach directed toward the duodenum.Diffuse hypertrophic degenerative changes are noted of the thoracic spine. Thereis again noted to b e shift of mediastinal structures to the right.IMPRESSION: Worsening right lower lobe infiltrate. Slight worsening of the rightmiddle lobe infiltrate. Improved le ft lung.Xr Chest PortResult Date: 03/25/2019CHEST one view HISTORY: Fever. Reflux. Gastrostomy. COMPARISON: 03/11/2019.There is a poor inspiratory e ffort which compromises this interpretation. Arepeat study is suggested. There is di scoid atelectasis and/or left lower lobeinfiltrate.There is no gross evidenc e of congestion, other infiltrates,effusions or pneumothorax.IMPRESSION: Possible lef t lower lobe infiltrate. Poor inspiratory effort.Xr Chest PortResult Date: 019CHEST one view HISTORY: Fever. COPD. Reflux. COMPARISON: 02/12/2019. Anadditi onal view was obtained. A tubular structure overlies the stomach andmidabdomen with some gastric distention and elevation of the left hemidiaphragm.There is a poor inspi ratory effort which compromises this interpretation. Arepeat study is suggest ed. .There is no gross evidence of congestion,infiltrates, effusions or pne umothorax. Old rib fractures are noted.IMPRESSION: No evidence of acute c ardiopulmonary disease. Poor inspiratoryeffort. Gastric distention.Me dications reviewedCurrent Facility-Administered MedicationsMedicat ion Dose Route Frequency methylPREDNISolone (PF) (SOLU-MEDROL) injection 20 mg 20 m g IntraVENous Q12H potassium, sodium phosphates (NEUTRA-PHOS) packet 2 Packet 2 Packet Per GTube BID white petrolatum (VASELINE) ointment Topical DAILY 0.4 5% sodium chloride infusion 50 mL/hr IntraVENous CONTINUOUS acetylcysteine ( MUCOMYST) 100 mg/mL (10 %) nebulizer solution 400 mg 4 mLInhalation BID RT sodium ch loride (NS) flush 5-10 mL 5-10 mL IntraVENous PRN acetaminophen (TYLENOL) solution 650 mg 650 mg Per G Tube Q4H PRN cinacalcet (SENSIPAR) tablet 60 mg 60 m g Oral DAILY [Held by provider] heparin (porcine) injection 5,000 Units 5,000 U nitsSubCUTAneous Q12H lamoTRIgine (LaMICtal) tablet 50 mg 50 mg Per G Tube BID valp roic acid (as sodium salt) (DEPAKENE) 250 mg/5 mL (5 mL) oral solution 750mg 750 mg Per G Tube Q12H multivit-folic acid-herbal 275 (WELLESSE PLUS) oral liq uid 30 mL 30 mL Per GTube DAILY ALPRAZolam (XANAX) tablet 0.25 mg 0.25 mg Per G Tu be QPM albuterol-ipratropium (DUO-NEB) 2.5 MG-0.5 MG/3 ML 3 mL Nebulization Q6H RT budesonide (PULMICORT) 500 mcg/2 ml nebulizer suspension 500 mcg Nebulizati onBID RTAssessment/Plan:Hospital Problems Date Reviewed: 04/02/2019 Codes Cl ass Noted POA Acute hypoxemic respiratory failure (HCC) ICD-10-CM: J96.01ICD-9-CM: 518.81 03/25/2019 UnknownAssessment:Acute Hypercapneic, Hypoxemic Respiratory Fail ureAspiration PneumoniaCOPDLeukocytosis- trending downwardMalfunctioning jtube; t ubing appears to be defectiveDysphagia ( s/p gtube conversion to jtube on 02/07/19)An xiety DisorderHyperparathyroid Unspecified typeHypercalcemiaMentally challengedSeiz ure disorderHyponatremia- stableHypophosphate Plan:Continue IV cefepime and vancomyci n per IDVM, PRN BIPAP per pulmonaryMalfunctioning( new) PEJ due to kinked segments.F/u KUBGI follow upIv steroids taper per pulmonarynebulizersCo ntinue mucomyst nebulizersCheck PTH- RPContinue sensiparRenal f/uReplace phos phorusFollow up culturesMonitor lytesIv fluids per renalPt has poor venous acces s; a mid line placement is medically necessary -Teofilo Gonzalez 2018Time: 4:58 AM Name Value Range Interpretation Code Description Data Harriett rce(s) Supporting Document(s ) ID Date Data Source [id number] 04/04/2019 12:36:47 AM EST [facility] Name Value Range Interpretation Description Data Sup porting Code Source(s) Document(s ) Glucose 113 MG/DL 65-110 Above high normal [facility] - Good [Mass/volume] Taoist in Blood by Hospital Automated test strip ID Date Data Source [id number] 04/03/2019 08:49:11 PM EST [facility] Problem: Pressure Injury - Risk ofGoal: *Prevention of pressure injuryDescriptionDocument Butch Scale a nd appropriate interventions in the flowsheet.Outcome: Progressing Towards G oalNote: Pressure Injury Interventions:Sensory Interventions: Ass ess changes in LOCMoisture Interventions: Check for incontinence Q2 hours and as n eededActivity Interventions: Pressure redistribution bed/mattress(bed type)Mob ility Interventions: Pressure redistribution bed/mattress (bed type)Nutrition Interve ntions: Document food/fluid/supplement intakeFriction and Shear Interventions: Apply protective barrier, creams andemollientsProblem: Patient Education: Go to Patient Education ActivityGoal: Patient/Family EducationOutcome: Progres sing Towards GoalProblem: Falls - Risk ofGoal: *Absence of FallsDescriptionDocu ment Samra Fall Risk and appropriate interventions in the flowsheet.Outcome: Progressing Towards GoalNote: Fall Risk Interventions:Mentation Interventions: B ed/chair exit alarmMedication Interventions: Bed/chair exit alarmElimination Interven tions: Bed/chair exit alarmProblem: Patient Education: Go to Patient Education Activ ityGoal: Patient/Family EducationOutcome: Progressing Towards GoalProblem: PainGoa l: *Control of PainOutcome: Progressing Towards GoalProblem: Breathing Pattern - IneffectiveGoal: *Absence of hypoxiaOutcome: Progressing Towards GoalGoal: *Use of ef fective breathing techniquesOutcome: Progressing Towards GoalGoal: *PALLIATIV E CARE: Alleviation of DyspneaOutcome: Progressing Towards GoalProblem: Patient Education: Go to Patient Education ActivityGoal: Patient/Family EducationOu tcome: Progressing Towards GoalProblem: Seizure Disorder (Adult)Goal: *STG: Lindsey ins free of seizure activityOutcome: Progressing Towards GoalGoal: *STG: Main tains lab values within therapeutic rangeOutcome: Progressing Towards GoalGo al: *STG: Remains free of injury during seizure activityOutcome: Progressing [place] ards GoalGoal: *STG: Remains safe in hospitalOutcome: Progressing Towards Goa lGoal: InterventionsOutcome: Progressing Towards GoalProblem: Patient Education: Go to Patient Education ActivityGoal: Patient/Family EducationOutcome: Progres sing Towards GoalProblem: Non-Violent RestraintsGoal: *Removal from restraints as soon as assessed to be safeOutcome: Progressing Towards GoalGoal: *No harm/i njury to patient while restraints in useOutcome: Progressing Towards GoalGoal : *Patient's dignity will be maintainedOutcome: Progressing Towards G oalGoal: *Patient Specific Goal (EDIT GOAL, INSERT TEXT)Outcome: Progressing Towards GoalGoal: Non-violent Restaints:Standard InterventionsOutcome: Progressing Toward s GoalGoal: Non-violent Restraints:Patient InterventionsOutcome: Progressing Toward s GoalGoal: Patient/Family EducationOutcome: Progressing Towards Goal Name Value Range Interpretation Code Description Data [facility](s) Supporting Document(s ) ID Date Data Source [id number] 04/03/2019 07:30:34 PM [facility] Bedside and Verbal shift change report carol Ochoa RN (oncoming nurse) Kvng Carpio RN (offgoing nurse). Report included the followinginformation SBAR, Kardex, MAR, Recent Results, Med Rec Sta tus and Cardiac RhythmNSR. Name Value Range Interpretation Code Description Data [facility] rce(s) Supporting Document(s ) ID Date Data Source [id number] 04/03/2019 06:44:54 PM [facility] Progress NoteSIL[facility] ,[facility] Centerjose Monae MD., F.C.C.P.Stella Hamilton MD., F.C.C.P. [address] [place] [id number] [place] [phone]: Evelio Carlin Sex: male DOA: 03/25/2019D ate of : 1950 Age: 68 y.o. LOS: LOS: 9 daysSubjective:Mr. Maximiliano mata is a 68 y.o. year old male who is being seen for Acuterespiratory failure PEG TUBE OPENED UP BY Carol I , FEEDING STARTED . PATIENT IS COMFORTABLE .Mr. Carlin is a 68 y.o. year old male who is being seen forACUTE RESPIRA TORY FAILURE .PATIENT SENT BACK YESTERDAY WITHOUT REPLACING FRACTURED P E G TB E BYANAESTHESIA AND G I CONCERN OF ACUTE RESPIRATORY FAILURE . HE HAVE ELIU RE COPD , HE IS CO2 RETAINER BUT MORE AWAKE AND ALERT . HE IS COMFORTABLE ON VM. TODAY SPO2 = 97 % HE TOLERATED PICC LINE INSERTION YESTERDAY. . Evelio Carlin is a 68 y.o. male with history of COPD, GERD,hyperparathyroidis m, Parkinsonism, pneumonia, schizophrenia, and pulmonaryemboli with a surgical hist ory of gastrostomy who presents to the EmergencyDepartment via emergency medica l services sent in from long-term for hypoxiaand possible pneumonia. The patie nt has multiple incidences of pneumonia in thepast. [facility] and cannot provide any history ofreview of systems at the time. PATIENT HAVE SEVERE CEREBRAL PALSY , MENTAL RETARDATION AND IS NON VERBAL .NO HX CANNOT BE CONF IRMED FROM PATIENT , CHART IS REVIEWED.MULTIPLE ADMISSIONS FOR ASPIRA TION PNEUMONIA , HE IS BED RIDDEN . PATIENTT NOW IS ON BIPAP SUPPORT SPO2 = 96% ON FIO2 65% .PATIENT IS SLIGHTLY MORE AWAKE TODAY AND IS COMFORTABLE SPO2 0N 4 L N C = 92 % HAVE FRACTURED SEGMENT OF PEG TUBE NEAR INSERTION NEEDS REPLACEMENT . 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 Social History Tobacco Use Smoking status: Never Smoker Smokeless tobacco: Never UsedSubstance Use Topics Alcohol use: No History reviewed. No pertinent family history. No Known Aller gies Prior to Admission medicationsMedication Sig Start Date End Date Taking? Authorizing Providerheparin sodium,porcine (HEPARIN, PORCINE,) 5,000 unit/mL injection 1 mL bySubCUTAneous route every twelve (12) hours every twelve (12 ) hours. 03/17/19 Mili Hills DOmultivitamin (MULTI-DELYN, WELLESSE) l iqd 5 mL by Per G Tube route daily.03/17/19 Mili Hills DOacetaminophen (TYLEN OL) 32MG/ML soln solution Take 20.3 mL by mouth every four(4) hours as needed for Pain or Fever. 03/17/19 Mili Hills DOvalproic acid, as sodium salt, (DEPAKE NE) 250 mg/5 mL (5 mL) soln oral rubtnxeb325 mg by Per G Tube route every twelve (12) hours. Provider, Edieacetylcysteine (MUCOMYST) 100 mg/mL (10 %) nebulizer solution Take 4 mL byinhalation two (2) times a day. Provider, Edieclorazepate (TRANXENE) 3.75 mg tablet 1 Tab by Per G Tube route nightly. MaxDaily Amount: 3.75 mg. 12/30/18 Mili Hills DOcinacalcet (SENSIPA R) 30 mg tablet Take 2 Tabs by mouth daily.Patient taking differently: 30 mg daily. Via G tube 12/30/18 Mili HillsDOlamoTRIgine (LAMICTAL) 25 mg t ablet 2 Tabs by Per G Tube route two (2) times aday. 12/30/18 Mili Hills DOalbuterol-ipratropium (DUO-NEB) 2.5 mg-0.5 mg/3 ml nebu 3 mL by Nebulizationroute e very six (6) hours. Every 6 hours while awakePatient taking differently: 3 mL by Nebulization route every four (4) hours asneeded. Every 6 hours while awake 12/30 Mili Hills DObudesonide (PULMICORT) 0.5 mg/2 mL nbsp 2 mL by Neb ulization route two (2) timesa day. 12/30/18 Mili Hills DO REVIEW OF SYSTEMS : SEVERE MENTAL RETARDATION , CANNOT DO ROS .General: negative for fever, chill s, sweats, weaknessEyes: negative for blurred vision, eye pain, loss of vision, diplop iaEar Nose and Throat: negative for rhinorrhea, pharyngitis, otalgia, tinnit us,speech or swallowing difficultiesRespiratory: negative for c ough, sputum production, SOB, wheezing, DAVALOS,pleuritic painCardiology: negative for chest pain, palpitations, orthopnea, PND, edema,syncopeGastrointestinal: negative for abdominal pain, N/V, dysphagia, change in bowelhabits, bleedingGenitourinary: nega tive for frequency, urgency, dysuria, hematuria, incontinenceMuskuloskeletal : negative for arthralgia, myalgiaHematology: negative for easy bruising, bleeding, ly mphadenopathyDermatological: negative for rash, ulceration, mole change, new lesio nEndocrine: negative for hot flashes or polydipsiaNeurological: negative for hea dache, dizziness, confusion, focal weakness,paresthesia, memory loss, gait disturbancePsychological: negative for anxiety, depression, agitation Object britni:Vital Signs:Patient Vitals for the past 24 hrs: BP Temp Pulse Resp SpO2 Cphsqb10 1559 98/66 97.1 F (36.2 C) 74 22 97 % -04/03/19 1513 - - - - 97 % -04/03/19 1205 110/73 97.6 F (36.4 C) 66 20 94 % -04/03/19 0837 - - - - 100 % -04/03/19 0 806 142/72 97.6 F (36.4 C) (!) 55 28 99 % -04/03/19 0413 131/59 97.8 F (36.6 C) (!) 58 18 98 % 47.4 kg (104 lb 8 oz)04/03/19 0121 - - - - 97 % -04/02/19 2328 115/75 97.9 F (36.6 C) 75 18 95 % -04/02/19 2134 97/50 98.3 F (36.8 C) 94 18 94 % -03/15 - - - - 99 % -Pulse OX:SpO2 Readings from Last 6 Encounters:04/03/19 97%03/17/19 92%02/19/19 96%02/18/19 92%01/24/19 93%12/30/18 96%@LASTSAO2(6)@ Physical Exam:COMFORTABLE , AWAKE , NON COMMUNICATIVE . ON V. M General: Alert, cooperative, no distress, appears stated age. Head: Normoceph alic, without obvious abnormality, atraumatic. Eyes: Conjuncti vae/corneas clear. PERRL, EOMs intact. Nose: Nares normal. No drainage or sinus tenderness Throat: Lips, mucosa, and tongue normal Nec k: Supple, symmetrical, trachea midline, no adenopathy,thyroid: no enlargem ent/tenderness/nodules, no carotid bruit and no JVD. Lungs: BOTH LUNGS HAVE MILD WHEEZING AND RHONCHI toauscultation bilaterally. Chest Wall: No tenderness or deformity. Heart: Regular rate and rhythm, S1, S2 normal, no murmur, click,rub or NO gallop. Abdomen: Soft, non-tender. Bowel sounds normal. No masses, No organomegaly. Extremities: Extremities normal, atraumatic, no cyanosis or edema. Pulses: 4+ bilaterally. Skin: Skin color, texture, turgor normal. No rashes or lesions. Neurologi c: CNII-XII intact. No focal motor or sensory deficit.Intake and Output:Last t hree shifts: 04/01 1901 - 04/03 0700In: 800Out: 800 [Urine:800]Lab Results:Recen t Results (from the past 24 hour(s))GLUCOSE, POC Collection Time: 04/02/19 11:59 PMRe sult Value Ref Range Glucose, bedside 95 65 - 110 MG/DLGLUCOSE, POC Collection Time: 1 06/04/18 6:16 AMResult Value Ref Range Glucose, bedside 158 (H) 65 - 110 MG/DLR ENAL FUNCTION PANEL Collection Time: 04/03/19 6:30 AMResult Value Ref Range Sodium 13 7 136 - 145 mmol/L Potassium 4.2 3.5 - 5.1 mmol/L Chloride 96 (L) 98 - 107 mmol/L C O2 36 (H) 21 - 32 mmol/L Anion gap 8 (L) 10 - 20 mmol/L Glucose 129 (H) 74 - 106 mg/dL BUN 12 7 - 18 mg/dL Creatinine 0.46 (L) 0.70 - 1.30 mg/dL GFR est AA >60 >60 ml/min/1 .73m2 GFR est non-AA >60 >60 ml/min/1.73m2 Calcium 10.2 (H) 8.5 - 10.1 mg/dL Phosph orus 1.8 (L) 2.5 - 4.9 mg/dL Albumin 2.3 (L) 3.5 - 4.7 g/dLMAGNESIUM Collection Time: 04/03/19 6:30 AMResult Value Ref Range Magnesium 2.2 1.6 - 2.6 mg/dLCBC WITH AU TOMATED DIFF Collection Time: 04/03/19 6:30 AMResult Value Ref Range WBC 12.0 (H) 4. 8 - 10.6 K/uL RBC 3.97 (L) 4.70 - 6.00 M/uL HGB 12.4 (L) 14.0 - 18.0 g/dL HCT 38.1 ( L) 42.0 - 52.0 % MCV 96.0 (H) 81.0 - 94.0 FL MCH 31.2 27.0 - 35.0 PG MCHC 32.5 30.7 - 37.3 g/dL RDW 16.2 (H) 11.5 - 14.0 % PLATELET 289 130 - 400 K/uL MPV 9.7 9.2 - 11.8 FL NRBC 0.0 0 PER 100 WBC ABSOLUTE NRBC 0.00 0.0 - 0.01 K/uL NEUTROPHILS 79 (H) 48.0 - 72.0 % LYMPHOCYTES 14 (L) 18.0 - 40.0 % MONOCYTES 5 2.0 - 12.0 % EOSINOPH ILS 0 0.0 - 7.0 % BASOPHILS 0 0.0 - 3.0 % IMMATURE GRANULOCYTES 2 (H) 0 - 0.5 % AB S. NEUTROPHILS 9.4 (H) 2.3 - 7.6 K/UL ABS. LYMPHOCYTES 1.6 0.9 - 4.2 K/UL ABS. MONO CYTES 0.7 0.1 - 1.7 K/UL ABS. EOSINOPHILS 0.0 0.0 - 1.0 K/UL ABS. BASOPHILS 0.0 0.0 - 0.4 K/UL ABS. IMM. GRANS. 0.3 (H) 0.0 - 0.17 K/UL DF AUTOMATEDGLUCOSE, POC Collection Time: 04/03/19 12:09 PMResult Value Ref Range Glucose, bedside 92 65 - 110 MG/DL GLUCOSE, POC Collection Time: 04/03/19 4:06 PMResult Value Ref Range Glucose, bedsid e 88 65 - 110 MG/DLABG:Recent Labs 2PH 7.50*PCO2 48PO2 76*HCO3 3 7*FIO2 40.0Recent Glucose Results:Lab ResultsComponent Value Date/Time GLU 129 (H) 04/03/2019 06:30 AM GLUCPOC 88 04/03/2019 04:06 PM GLUCPOC 92 9 12:09 PM GLUCPOC 158 (H) 04/03/2019 06:16 AM@LABAPCYTOINTERPRETATION@CULTURESAll M icro Results Procedure Component Value Units Date/Time CULTURE, BLOOD [[id number]] Col lected: 03/25/19254 Order Status: Completed Specimen: Blood Updated: 620 Special Requests: NO SPECIAL REQUESTS Culture result: NO GROWTH 5 DA YS CULTURE, BLOOD [[id number]] Collected: 03/25/19309 Order Status: Completed S pecimen: Blood Updated: 03/30/19620 Special Requests: NO SPECIAL REQUESTS C ulture result: NO GROWTH 5 DAYSImages:@IMAGESENCORD@Xr Abd (kub)Res ult Date: 04/02/2019KUB 2 view(s) History: Evaluate J-tube. Comparison: 11/22/2018. There is a newJ-tube overlying the mid abdomen with kinking involving its super ior andinferior portion overlying the mid abdomen. These findings were discussed w sunil Mora at 3:40 PM today.. There is mild ileus of the small bowel butthere i s no evidence of obstruction, radiopaque gallstones, or left kidneystones or an a ppendicolith. There are possible right kidney stones. Absence ofan appendicolith it do es not exclude appendicitis. CT is suggested if clinicallyindicated. Old rib fracture s are noted.IMPRESSION: Kinking of J- tube in 2 locations. Possible right kidney stone sIleus.Ir Picc Insert Wo Port Over 5 Years Wo ImgResult Date: 04/01/2019IR PICC INSERT WO PORT OVER 5 YEARS WO IMG CLINICAL INDICATION PROVIDED.:"midline." Med ical necessity for vascular access. PROCEDURE: After beinginformed of the ri sks, benefits, potential alternatives to the procedure theinformed consent was obtain ed. The patient was placed on the table the supineposition. The right upper extremit y was prepped and draped in the normal sterilefashion. Ultrasound interrogation was performed of the right upper extremity.Images were obtained. A locat ion was chosen over the right brachial vein abovethe antecubital fossa. Lidocaine so lution was used to anesthetize the scan.Access was gained under ultrasound guidance using a 21-gauge thin-walled needle.A 0.018 a wire was advanced under fluoroscopic guidance into the right axillaryvein. The needle was exchanged o lani a wire for the midline dilator and sheath.The dilator and wire were removed leaving the sheath in situ. Through the sheatha 5 Congolese double-lumen 20 cm midl ine catheter was placed. The peel-away sheathwas removed. The catheter was sewn into position using 2-0 silk sutures. Thepatient tolerated the procedure. Ther e were no complications at the time of theprocedure. FINDINGS: Ultrasound inter rogation revealed a widely patent brachialvein above the antecubital fossa . A 5 Congolese dual-lumen 20 cm midline catheterwas placed. The tip was placed i n good position over the right axillary vein.IMPRESSION: 5 Congolese dual-lumen mid line catheter placed with tip positioned overthe right axillary vein.Ct Chest Wo ContResult Date: 03/14/2019History: Respiratory difficulty. FINDINGS: CT sca nning of the chest wasperformed helically from lung apices to the upper abdomen wi thout intravenouscontrast dural. Sagittal and coronal reconstructed images are submitt ed.Scanning was performed utilizing dose lowering techniques and is compared to t heprior study of 01/15/2019. Evaluation of thoracic vascular structures is limitedw ithout intravenous contrast material. There is, however, no definite CTevidence of d issection or focal aneurysmal dilatation. Some peripheralcalcification is noted. T here is no evidence of any pathologically enlargedlymph node within the visualized portions of the mediastinum or axillae. Somenonpathologically enlarged lymph nod es are seen. Again noted is elevation of theleft hemidiaphragm. A left small pleu ral effusion is noted as well asatelectatic change at the left lung base. Patchy opa city at the right lung baseis compatible with a right basilar infiltrate. There is tamie e patchy opacitywithin the right middle lobe as well. The right basal infiltrate is g reater insize than that seen previously. The pleural effusion is smaller. The rightmi ddle lobe infiltrate is similar. Limited evaluation of upper abdominalstructures reveals a tube within the stomach directed toward the duodenum.Diffuse hypertrophic degenerative changes are noted of the thoracic spine. Thereis again noted to b e shift of mediastinal structures to the right.IMPRESSION: Worsening right lower lobe infiltrate. Slight worsening of the rightmiddle lobe infiltrate. Improved le ft lung.Xr Chest PortResult Date: 03/25/2019CHEST one view HISTORY: Fever. Reflux. Gastrostomy. COMPARISON: 03/11/2019.There is a poor inspiratory e ffort which compromises this interpretation. Arepeat study is suggested. There is di scoid atelectasis and/or left lower lobeinfiltrate.There is no gross evidenc e of congestion, other infiltrates,effusions or pneumothorax.IMPRESSION: Possible lef t lower lobe infiltrate. Poor inspiratory effort.Xr Chest PortResult Date: 019CHEST one view HISTORY: Fever. COPD. Reflux. COMPARISON: 02/12/2019. Anadditi onal view was obtained. A tubular structure overlies the stomach andmidabdomen with some gastric distention and elevation of the left hemidiaphragm.There is a poor inspi ratory effort which compromises this interpretation. Arepeat study is suggest ed. .There is no gross evidence of congestion,infiltrates, effusions or pne umothorax. Old rib fractures are noted.IMPRESSION: No evidence of acute c ardiopulmonary disease. Poor inspiratoryeffort. Gastric distention.Me dications:Current Facility-Administered MedicationsMedication Dose Route Frequen cy methylPREDNISolone (PF) (SOLU-MEDROL) injection 20 mg 20 mg IntraVENous Q12H potassium, sodium phosphates (NEUTRA-PHOS) packet 2 Packet 2 Packet Per GTube BID white petrolatum (VASELINE) ointment Topical DAILY 0.45% sodium chloride inf usion 50 mL/hr IntraVENous CONTINUOUS acetylcysteine (MUCOMYST) 100 mg/mL (10 %) nebulizer solution 400 mg 4 mLInhalation BID RT sodium chloride (NS) flush 5-10 mL 5-10 mL IntraVENous PRN acetaminophen (TYLENOL) solution 650 mg 650 mg Per G Tube Q4H PRN cinacalcet (SENSIPAR) tablet 60 mg 60 mg Oral DAILY [Held by provider] heparin (porcine) injection 5,000 Units 5,000 UnitsSubCUTAneous Q12H lamoTRIgin e (LaMICtal) tablet 50 mg 50 mg Per G Tube BID valproic acid (as sodium salt) (DEP AKENE) 250 mg/5 mL (5 mL) oral solution 750mg 750 mg Per G Tube Q12H multivit-folic acid-herbal 275 (WELLESSE PLUS) oral liquid 30 mL 30 mL Per GTube DAILY ALPRAZolam (XANAX) tablet 0.25 mg 0.25 mg Per G Tube QPM albuterol-ipratropium (DUO-NEB) 2.5 MG-0.5 MG/3 ML 3 mL Nebulization Q6H RT budesonide (PULMICORT) 500 mcg/2 ml nebu lizer suspension 500 mcg NebulizationBID RTActive Problems: Acute hypoxemic resp iratory failure (HCC) (03/25/2019)Assessment:1. ACUTE HYPERCAP NICOLAS AND HYPOXIC RESPIRATORY FAILURE2. SEVER COPD STABLE 3. ASPIRATION PNEUMONIA 4. SMALL ATELECTASIS L L L5. FRACTURED P E G6. PARKINSONISM7. SEVERE MENTAL RETARDATION8. KYPHOSIS9. HYPOVENTILATION 10. METABOLIC ENCEPHALOPATHY IMPROVING Pl an:1. TOLERATING P E G FEEDING2. CHANGE LOW FOLW O2 4 L N C DAY TIME AT NIGHT BIPAP3. F/ U CULTURES 4. AGREE WITH I V CEFEPIME AND VANCOMYCI N5. DECREASE I V SOLUMEDROL 20 MG Q 24 HR6. DUO NEB QID7. I V FLUIDS8. CHEST PT 9. SOME IMPROVEMENT NOTED CONT SAME TREATMENT Krystian Monae MD F.C.C. P.April 03, 20196:37 PM Name Value Range Interpretation Code Description Data Harriett rce(s) Supporting Document(s ) ID Date Data Source [id number] 04/03/2019 04:24:41 PM EST [facility] Name Value Range Interpretation Description Data Sup porting Code Source(s) Document(s ) Glucose 88 MG/DL 65-110 [facility] - [facility] [Mass/volume] Taoist in Blood by Hospital Automated test strip ID Date Data Source [id number] 04/03/2019 01:39:14 PM EST [facility] Problem: Nutrition DeficitGoal: *Tolerat ing enteral feedingDescriptionPt meets >75% of estimated energy and protein needs wi thin 3-7 daysOutcome: Progressing Towards GoalAs feasible, advance Osmolite 1.5 to goal rate of 50 mL/hr (1800 kcal, 75 gmpro, 244 gm CHO, 59 gm fat, 914 mL water) and 100 mL free water flush q 3 hr ifno IVF Name Value Range Interpretation Code Description Data Harriett rce(s) Supporting Document(s ) ID Date Data Source [id number] 04/03/2019 01:37:19 PM EST [facility] NUTRITIONFollow Up NoteSubjective: J tub e placed over PEG 04/02, difficulty flushing after procedure.Not a candidate for surg ical J tube placement per MD. Feeding through [place] at 45 mL/hr. Nutrition Rx: Os molite 1.5 at 50 mL/hr, free water 50 mLLabs: POC glu 158 Glu 129 Creat 0.46 PO4 1.8Me dications reviewed. Receiving D5W 1/2 NS at 50 mL/hr, Solu-Medrol. Phosphorusreplace d.Skin: trace LLE, RLE edema; butch score 13GI: Malfunctioning J tube - multiple a ttempts to replace. Now replaced, butkinked; KUB ordered to check if kinks resolved a nd if J tube remains in positionWeight: 47.4 kg (down additional 5.2 kg since last as sessment - EN has not beeninfusing consistently or at goal) Nutrition Diagn osis: remains the same (Increased protein needs) As feasible, advance Osmolite 1.5 to goal rate of 50 mL/hr (1800 kcal, 75 gmpro, 244 gm CHO, 59 gm fat, 914 mL julisa er) and 100 mL free water flush q 3 hr ifno IVF Will continue to monitor EN, GI stat us. Discharge Planning: Pending clinical course Candy Correa RD Name Value Range Interpretation Code Description Data Harriett rce(s) Supporting Document(s ) ID Date Data Source [id number] 04/03/2019 12:30:01 PM EST [facility] Name Value Range Interpretation Description Data Sup porting Code Source(s) Document(s ) Glucose 92 MG/DL 65-110 [facility] [Mass/volume] Taoist in Blood by Hospital Automated test strip ID Date Data Source [id number] 04/03/2019 11:50:21 AM EST [facility] - [facility] GI PROGRESS NOTENAME: Evelio Johnson inDOB: 1950MRN: [id number]:KUB yesterday showed J tube kinking in 2 spo tsI attempted to straighten it with a wire brush but was very difficult - unclearif brushed reached the second kinkAt the end able to flush but w/ some resistanceObje ctive:VITALS:Last 24hrs VS reviewed since prior progress note. Most recent are:Vis it VitalsBP 142/72 (BP 1 Location: Left arm, BP Patient Position: At rest)Pulse (!) 5 5Temp 97.6 F (36.4 C)Resp 28Wt 47.4 kg (104 lb 8 oz)SpO2 100%BMI 19.11 kg/m Intake/O utput Summary (Last 24 hours) at 04/03/2019 1147Last data filed at 04/03/2019 0556Gr oss per 24 hourIntake -Output 550 mlNet -550 mlPHYSICAL EXAM:General: Alert, in no ac manzanita distressHEENT: Anicteric sclerae.Abdomen: Soft, Non distended, Non tender.Lab Data Reviewed:Recent Labs 04/02/1905WBC 12.0* 11.9*HGB 12.4* 12. 7*HCT 38.1* 39.9*PLT 289 279Recent Labs 04/02/1905NA 137 136K 4.2 4.2CL 96* 95*CO2 36* 35*BUN 12 15CREA 0.46* 0.46*GLU 129* 114*PHOS 1.8* 2.4*CA 10.2* 10.5*Recent Labs 04/02/19059ALB 2.3* 2.3* Pati ent Active Problem ListDiagnosis Code Parae sophageal hiatal hernia K44.9 COPD (chronic obstructive pulmonary disease) ([facility]) J44 .9 Acute respiratory distress R06.03 Pneumonia J18.9 COPD exacerbation ([facility]) J44.1 Sepsis due to undetermined organism ([facility]) A41.9 Generalized anxiety disorde r F41.1 Acute respiratory failure with hypoxia ([facility]) J96.01 Pneumonia involvin g right lung J18.9 Hyponatremia E87.1 SOB (shortness of breath) R06.02 Pressure i njury of right heel, stage [address] ([facility]) L89.612 Leg wound, right, initial encounter S81. 801A Acute hypoxemic respiratory failure ([facility]) J96.01Assessment: Malfunctioning J tube - multiple attempts to replace. Now replaced, but kinkedPlan: Will obtain K UB to check if kinks resolved and if J tube remains in positionSigned By: Marly vaughan MD 04/03/2019 11:47 AM Name Value Range Interpretation Code Description Data Harriett rce(s) Supporting Document(s ) ID Date Data Source [id number] 04/03/2019 11:00:44 AM [facility] Progress NoteEmanuel [id number] y.o.Adm it Date: 03/25/2019Active Problems: Acute hypoxemic respiratory failure (HCC) (02/2019)Subjective:Patient is less lthargic, non verbalPertinent items are noted in t he History of Present Illness.Objective:Visit VitalsBP 142/72 (BP 1 Location: Left arm , BP Patient Position: At rest)Pulse (!) 55Temp 97.6 F (36.4 C)Resp 28Wt 47.4 k g (104 lb 8 oz)SpO2 100%BMI 19.11 kg/m Intake and Output:Date 04/02/19 07 - 04/03/19 0659 04/03/19 07 - 04/04/19 0659Shift [id number] 1535-4791 24 Hour Total 0700-1 859 9385-1965 24 Hour TotalINTAKEShift Total(mL/kg)OUTPUTUrine(mL/kg/hr) 250(0. 4) 550(1) 800(0.7) Urine Voided 250 550 800Shift Total(mL/kg) 250(4.8) 550(11.6) 800(16.9)NET -250 -550 -800Weight (kg) 51.8 47.4 47.4 47.4 47.4 47.4Medications Revi ewed:Current Facility-Administered MedicationsMedication Dose Route Frequen cy Provider Last Rate Last Dose methylPREDNISolone (PF) (SOLU-MEDROL) in jection 20 mg 20 mg IntraVENous Z32APuesxyKrystian helms MD 20 mg at 04/03/19 1028 pota ssium, sodium phosphates (NEUTRA-PHOS) packet 2 Packet 2 Packet Per GTube BID Mili Hills DO 2 Packet at 04/03/19 0930 white petrolatum (VASELINE) ointment T opical DAILY Mili Hills DO 0.45% sodium chloride infusion 50 mL/hr Intra VENous CONTINUOUS DgOralia ryan MD 50 mL/hr at 04/03/19 0639 50 mL/hr at 04/03/19 06 39 acetylcysteine (MUCOMYST) 100 mg/mL (10 %) nebulizer solution 400 mg 4 mLInhala tion BID RT Mili Hills DO 400 mg at 04/03/19 0837 sodium chloride (NS) flus h 5-10 mL 5-10 mL IntraVENous PRN Jessie Neumann MD acetaminophen (TYLENOL) solution 650 mg 650 mg Per G Tube Q4H PRN Mili Hills DO cinacalcet ( SENSIPAR) tablet 60 mg 60 mg Oral DAILY Mili Hills DO 60mg at 04/03/19 09 27 [Held by provider] heparin (porcine) injection 5,000 Units 5,000 UnitsSubCUT Aneous Q12H Mili Hills DO Stopped at 03/30/19 0725 lamoTRIgine (LaMICtal) ta blet 50 mg 50 mg Per G Tube BID Mili Hills DO50 mg at 04/03/19 1028 valpr oic acid (as sodium salt) (DEPAKENE) 250 mg/5 mL (5 mL) oral solution 750mg 750 mg Pe r G Tube Q12H Mili Hills, DO 750 mg at 04/03/19 0930 multivit-folic acid-herba l 275 (WELLESSE PLUS) oral liquid 30 mL 30 mL Per GTube DAILY Rienier Mili, DO 30 mL at 04/03/19 1059 ALPRAZolam (XANAX) tablet 0.25 mg 0.25 mg Per G Tube QPM N dewayneMili, DO0.25 mg at 04/02/19 1800 albuterol-ipratropium (DUO-NEB) 2.5 MG-0 .5 MG/3 ML 3 mL Nebulization Q6H RTMili Hills, DO 3 mL at 04/03/19 0836 bud esonide (PULMICORT) 500 mcg/2 ml nebulizer suspension 500 mcg NebulizationBID RT N dewayne Mili, DO 500 mcg at 04/03/19 0836Physical Exam:Physical Exam:General: Alert, cooperative, no distress, appears stated age.Eyes: Conjunctivae/corneas c lear.Neck: Supple, symmetrical, trachea midline, no adenopathy, thyroid: noenlar gement/tenderness/nodules, no carotid bruit and no JVD.Lungs: Clear to auscultatio n bilaterally.Heart: Regular rate and rhythm, S1, S2 normal, no murmur, click, rub or gallop.Abdomen: Soft, non-tender. Bowel sounds normal. No masses, No orga nomegaly.Extremities: Extremities normal, atraumatic, no cyanosis or edema,Pulses: 2+ and symmetric all extremities.Skin: Skin color, texture, turgor normal. No rashes or lesionsData Review:Recent Results (from the past 24 hour(s))GLUCOSE, POC Collect ion Time: 04/02/19 12:33 PMResult Value Ref Range Glucose, bedside 154 (H) 65 - 110 MG/DLGLUCOSE, POC Collection Time: 04/02/19 4:30 PMResult Value Ref Range Glucose, b edside 150 (H) 65 - 110 MG/DLGLUCOSE, POC Collection Time: 04/02/19 11:59 PMResult Value Ref Range Glucose, bedside 95 65 - 110 MG/DLGLUCOSE, POC Collection Time: 04/03 6:16 AMResult Value Ref Range Glucose, bedside 158 (H) 65 - 110 MG/DLRENAL FUNC TION PANEL Collection Time: 04/03/19 6:30 AMResult Value Ref Range Sodium 137 136 - 145 mmol/L Potassium 4.2 3.5 - 5.1 mmol/L Chloride 96 (L) 98 - 107 mmol/L CO2 36 ( H) 21 - 32 mmol/L Anion gap 8 (L) 10 - 20 mmol/L Glucose 129 (H) 74 - 106 mg/dL BU N 12 7 - 18 mg/dL Creatinine 0.46 (L) 0.70 - 1.30 mg/dL GFR est AA >60 >60 ml/min/1.7 3m2 GFR est non-AA >60 >60 ml/min/1.73m2 Calcium 10.2 (H) 8.5 - 10.1 mg/dL Phosph orus 1.8 (L) 2.5 - 4.9 mg/dL Albumin 2.3 (L) 3.5 - 4.7 g/dLMAGNESIUM Collection Time: 04/03/19 6:30 AMResult Value Ref Range Magnesium 2.2 1.6 - 2.6 mg/dLCBC WITH AU TOMATED DIFF Collection Time: 04/03/19 6:30 AMResult Value Ref Range WBC 12.0 (H) 4. 8 - 10.6 K/uL RBC 3.97 (L) 4.70 - 6.00 M/uL HGB 12.4 (L) 14.0 - 18.0 g/dL HCT 38.1 ( L) 42.0 - 52.0 % MCV 96.0 (H) 81.0 - 94.0 FL MCH 31.2 27.0 - 35.0 PG MCHC 32.5 30.7 - 37.3 g/dL RDW 16.2 (H) 11.5 - 14.0 % PLATELET 289 130 - 400 K/uL MPV 9.7 9.2 - 11.8 FL NRBC 0.0 0 PER 100 WBC ABSOLUTE NRBC 0.00 0.0 - 0.01 K/uL NEUTROPHILS 79 (H) 48.0 - 72.0 % LYMPHOCYTES 14 (L) 18.0 - 40.0 % MONOCYTES 5 2.0 - 12.0 % EOSINOPH ILS 0 0.0 - 7.0 % BASOPHILS 0 0.0 - 3.0 % IMMATURE GRANULOCYTES 2 (H) 0 - 0.5 % AB S. NEUTROPHILS 9.4 (H) 2.3 - 7.6 K/UL ABS. LYMPHOCYTES 1.6 0.9 - 4.2 K/UL ABS. MONO CYTES 0.7 0.1 - 1.7 K/UL ABS. EOSINOPHILS 0.0 0.0 - 1.0 K/UL ABS. BASOPHILS 0.0 0.0 - 0.4 K/UL ABS. IMM. GRANS. 0.3 (H) 0.0 - 0.17 K/UL DF AUTOMATEDImaging:Xr Abd (kub)Res ult Date: 04/02/2019KUB 2 view(s) History: Evaluate J-tube. Comparison: 11/22/2018. There is a newJ-tube overlying the mid abdomen with kinking involving its super ior andinferior portion overlying the mid abdomen. These findings were discussed w sunil Mora at 3:40 PM today.. There is mild ileus of the small bowel butthere i s no evidence of obstruction, radiopaque gallstones, or left kidneystones or an a ppendicolith. There are possible right kidney stones. Absence ofan appendicolith it do es not exclude appendicitis. CT is suggested if clinicallyindicated. Old rib fracture s are noted.IMPRESSION: Kinking of J- tube in 2 locations. Possible right kidney stone sIleus.Impression:Active Hospital Problems Diagnosis Date Noted Acute hypoxemic re spiratory failure (HCC) 03/25/2019 Hyponatremia, correctedPlan:Continue IV antibiotics, vanco 1 gram q 12hvanco T in am ivf Ns at 50 ml/mMinimal free waterRep lace [id number] [facility], MDDecember 2018 Name Value Range Interpretation Code Description Data Harriett rce(s) Supporting Document(s ) ID Date Data Source [id number] 04/03/2019 10:32:50 AM EST [facility] ID Progress Note04/03/2019Subjective:Pat ient with history of MR,COPD,recurrent aspiration pneumonia,dysphagia s/p pegpl acement was transferred from the long-term for respiratory distress,lowoxygen satur ation of 77% on 4 L nasal canula.Patient is non verbal,more awake today butunable to provide any historyAwake non verbal,unale to provide history,for midline insertionWBC at 12KNO events overnightBlood culture no growth.AfebrileAwaiting Surgical J tube placement as current on with leak and crack in theinlet portObjective:Review of Syst emsUnable to provide.Vitals:Patient Vitals for the past 24 hrs: BP Temp Pulse Resp SpO2 Mpifkl13/20/19 0837 - - - - 100 % -04/03/19 0806 142/72 97.6 F (36.4 C) (!) 55 28 99 % -04/03/19 0413 131/59 97.8 F (36.6 C) (!) 58 18 98 % 47.4 kg (104 lb 8 oz)04/03/19 0121 - - - - 97 % -04/02/19 2328 115/75 97.9 F (36.6 C) 75 18 95 % -04/02/19 2134 97/50 98.3 F (36.8 C) 94 18 94 % -04/02/19 2032 - - - - 99 % - 1504 109/71 98.7 F (37.1 C) 60 20 98 % -04/02/19 1311 118/66 98 F (36.7 C) (! ) 54 20 95 % -Tmax: Temp (24hrs), Av.1 F (36.7 C), Min:97.6 F (36.4 C), Max: 98.7 F(37.1 C)Physical Exam:General: Awake, nonverbal cooperative, no distres s, appears stated age.Eyes: Conjunctivae/corneas clear. PERRLNeck: S upple, symmetrical, trachea midline, no adenopathyLungs: Bilateral breath soun ds with basal crackles..Heart: Regular rate and rhythm, S1, S2 normal, no murmurAbdo men: Soft, non-tender. Bowel sounds normal. No masses, Noorganomegaly.peg+Back: N o CVA tenderness.Extremities: Chronic lymphedema, no cyanosisPulses: 2+ and sy mmetric all extremities.Skin: Skin color, texture, turgor normal. No rashes or les ionsCurrent Facility-Administered MedicationsMedication Dose Route Frequen cy methylPREDNISolone (PF) (SOLU-MEDROL) injection 20 mg 20 mg IntraVENous Q12H potassium, sodium phosphates (NEUTRA-PHOS) packet 2 Packet 2 Packet Per GTube BID white petrolatum (VASELINE) ointment Topical DAILY 0.45% sodium chloride inf usion 50 mL/hr IntraVENous CONTINUOUS acetylcysteine (MUCOMYST) 100 mg/mL (10 %) nebulizer solution 400 mg 4 mLInhalation BID RT sodium chloride (NS) flush 5-10 mL 5-10 mL IntraVENous PRN acetaminophen (TYLENOL) solution 650 mg 650 mg Per G Tube Q4H PRN cinacalcet (SENSIPAR) tablet 60 mg 60 mg Oral DAILY [Held by provider] heparin (porcine) injection 5,000 Units 5,000 UnitsSubCUTAneous Q12H lamoTRIgin e (LaMICtal) tablet 50 mg 50 mg Per G Tube BID valproic acid (as sodium salt) (DEP AKENE) 250 mg/5 mL (5 mL) oral solution 750mg 750 mg Per G Tube Q12H multivit-folic acid-herbal 275 (WELLESSE PLUS) oral liquid 30 mL 30 mL Per GTube DAILY ALPRAZolam (XANAX) tablet 0.25 mg 0.25 mg Per G Tube QPM albuterol-ipratropium (DUO-NEB) 2.5 MG-0.5 MG/3 ML 3 mL Nebulization Q6H RT budesonide (PULMICORT) 500 mcg/2 ml nebu lizer suspension 500 mcg NebulizationBID RTLabs:Recent Labs 45235 600WBC 12.0* 11.9* 22.1*HGB 12.4* 12.7* 13.1*PLT 289 279 315BUN 12 1 5 12CREA 0.46* 0.46* 0.48*Cultures:Lab ResultsComponent Value Date/Time Culture result: NO GROWTH 5 DAYS 03/25/2019 03:10 AM Culture result: NO GROWTH 5 DAYS 019 02:55 AM Culture result: NO GROWTH 5 DAYS 03/11/2019 04:14 AM Culture result: NO G ROWTH 5 DAYS 03/11/2019 04:14 AMRadiology:Xr Abd (kub)Result Date: 04/02/2019KUB 2 vi ew(s) History: Evaluate J-tube. Comparison: 11/22/2018. There is a newJ-tube overlyin g the mid abdomen with kinking involving its superior andinferior portion overlying t he mid abdomen. These findings were discussed withmale nurse Jacquelyn at 3:40 PM today.. Th ere is mild ileus of the small bowel butthere is no evidence of obstruction, radiopaqu e gallstones, or left kidneystones or an appendicolith. There are possible right kidney stones. Absence ofan appendicolith it does not exclude appendicitis. CT is sug gested if clinicallyindicated. Old rib fractures are noted.IMPRESSION: Kinking of J-tube in 2 locations. Possible right kidney stonesIleus.Assessment: Recurren t aspiration pneumonia. Acute COPD exacerbation Acute hypercapnic respirat ory failure. Dysphagia s/p peg placement.. Atelectasis sepsis ruled out Plan:1. C ontinue IV cefepime and vancomycinMahlet Henri, MDDecember [id number] AM Name Value Range Interpretation Code Description Data [facility] Supporting Document(s ) ID Date Data Source [id number] 04/03/2019 08:02:08 AM [facility] Bedside and Verbal shift change report g iven to andres RN (oncoming nurse) Yves Bonilla RN(offgoing nurse). Report given with SBAR, Kardex, Intake/Output, MAR and RecentResults. Name Value Range Interpretation Code Description Data [facility](s) Supporting Document(s ) ID Date Data Source [id number] 04/10/2019 08:05:33 PM [facility] Name Value Range Interpretation Description Data Sup porting Code Source(s) Document(s ) [facility]ath[facility] [Moles/volume] [facility] in Serum or Plasma (NOTE)Reference Range:All Ages: <2.0The PTHrP assay should not be used to exclude cancer orscreen tumor patients for humor al hypercalcemia ofmalignancy (HHM). The results should always be assessed inconj unction with the patient's medical history, clinicalexamination, and other findings. If test results areclinically discordant, please contact the laboratory.Performed At: [facility] [id number] [place], [place] [id number] Puente MD Ph:[phone] ID Date Data Source [id number] 04/03/2019 07:42:12 AM EST [facility] Name Value Range Interpretation Description Data Sup porting Code Source(s) Document(s ) Leukocytes 12.0 4.8-10.6 Above high normal [facility] - [#/volume] in K/uL [facility] Erythrocytes 3.97 4.70-6.0 Below low normal [facility] - [#/volume] in M/uL 0 Good Blood by [facility] Automated count [facility] Hemoglobin 12.4 14.0-18. Below low normal [facility] - [Mass/volume] in g/dL 0 [facility] Blood [facility] Hematocrit 38.1 % 42.0-52. Below low normal [facility] - [Volume 0 Good Fraction] of [facility] Blood by Hospital Automated count Erythrocyte mean 96.0 FL 81.0-94. Above high normal [facility] - corpuscular 0 Good volume [Entitic [facility] volume] by Hospital Automated count Erythrocyte mean 31.2 PG 27.0-35. [facility] - corpuscular 0 Good hemoglobin [facility] [Entitic mass] Hospital by Automated count Erythrocyte mean 32.5 30.7-37. [facility] - corpuscular g/dL 3 Good hemoglobin [facility] concentration [facility] [Mass/volume] by Automated count Erythrocyte 16.2 % 11.5-14. Above high normal [facility] - distribution 0 Good width [Ratio] by [facility] Platelets 289 K/uL 130-400 [facility] - [#/volume] in Good Blood by [facility] Automated count [facility] Platelet mean 9.7 FL 9.2-11.8 [facility] - volume [Entitic Good volume] in Blood [facility] by Automated Hospital count Nucleated 0.0 PER 0 [facility] - erythrocytes/100 100 WBC Good leukocytes [facility] [Ratio] in Blood Hospital Nucleated 0.00 0.0-0.01 [facility] - erythrocytes K/uL Good [#/volume] in [facility] Segmented 79 % 48.0-72. Above high normal [facility] - neutrophils/100 0 [facility] leukocytes in [facility] Lymphocytes/100 14 % 18.0-40. Below low normal [facility] - leukocytes in 0 [facility] Monocytes/100 5 % 2.0-12.0 [facility] - leukocytes in [facility] Eosinophils/100 0 % 0.0-7.0 [facility] - leukocytes in [facility] Basophils/100 0 % 0.0-3.0 [facility] - leukocytes in [facility] Immature 2 % 0-0.5 Above high normal [facility] - granulocytes/100 [facility] leukocytes in [facility] by Hospital Automated count Segmented 9.4 K/UL 2.3-7.6 Above high normal [facility] - neutrophils Good [#/volume] in [facility] Lymphocytes 1.6 K/UL 0.9-4.2 [facility] - [#/volume] in [facility] Monocytes 0.7 K/UL 0.1-1.7 [facility] - [#/volume] in [facility] Eosinophils 0.0 K/UL 0.0-1.0 [facility] - [#/volume] in [facility] Basophils 0.0 K/UL 0.0-0.4 [facility] - [#/volume] in [facility] Immature 0.3 K/UL 0.0-0.17 Above high normal [facility] - granulocytes Good [#/volume] in [facility] by Hospital Automated count Differential [facility] - cell count [facility] ID Date Data Source [id number] 04/03/2019 07:31:11 AM EST [facility] Name Value Range Interpretation Description Data Sup porting Code Source(s) Document(s ) Sodium 137 136-145 [facility] - Good [Moles/volume] mmol/L [facility] in Serum or Hospital Plasma Potassium 4.2 3.5-5.1 [facility] - Good [Moles/volume] mmol/L [facility] in Serum or Hospital Plasma Chloride 96 98-107 Below low normal [facility] - Good [Moles/volume] mmol/L [facility] in Serum or Hospital Plasma Carbon 36 21-32 Above high normal [facility] - Good dioxide, total mmol/L [facility] [Moles/volume] Hospital in Serum or Plasma Anion gap in 8 mmol/L 10-20 Below low normal [facility] - Go od Serum or [facility] Plasma Hospital Glucose 129 74-106 Above high normal [facility] - Good [Mass/volume] mg/dL [facility] in Serum or Hospital Plasma Urea nitrogen 12 mg/dL 7-18 [facility] - Good [Mass/volume] [facility] in Serum or Hospital Plasma Creatinine 0.46 0.70-1.3 Below low normal [facility] - Good [Mass/volume] mg/dL 0 [facility] in Serum or Hospital Plasma Glomerular >60 [facility] - Good filtration [facility] rate/1.73 sq M Hospital predicted among blacks [Volume Rate/Area] in Serum or Plasma by Creatinine-bas ed formula (MDRD) Glomerular >60 [facility] - Good filtration [facility] rate/1.73 sq M Hospital predicted among non-blacks [Volume Rate/Area] in Serum or Plasma by Creatinine-bas ed formula (MDRD) Calcium 10.2 8.5-10.1 Above high normal [facility] - Good [Mass/volume] mg/dL [facility] in Serum or Hospital Plasma Phosphate 1.8 2.5-4.9 Below low normal [facility] - Good [Mass/volume] mg/dL [facility] in Serum or Hospital Plasma Albumin 2.3 g/dL 3.5-4.7 Below low normal [facility] - Good [Mass/volume] [facility] in Serum or Hospital Plasma by Bromocresol purple (BCP) dye binding method ID Date Data Source [id number] 04/03/2019 07:31:11 AM EST [facility] Name Value Range Interpretation Description Data Sup porting Code Source(s) Document(s ) Magnesium 2.2 mg/dL 1.6-2.6 [facility] - Good [Mass/volume] [facility] in Serum or Hospital Plasma ID Date Data Source [id number] 04/03/2019 06:27:34 AM EST [facility] - [facility] Value Range Interpretation Description Data Sup porting Code Source(s) Document(s ) Glucose 158 MG/DL 65-110 Above high normal [facility] - Good [Mass/volume] [facility] in Blood by [facility] Automated test strip ID Date Data Source [id number] 04/03/2019 06:10:20 AM [facility] Check the patient with RN Chad Mazariegos or any skin breakdown while using theBiPAP mask. RN aware of two finger tech to mas k tightness,and use of mask clipsfor any interventions Name Value Range Interpretation Code Description Data Harriett rce(s) Supporting Document(s ) ID Date Data Source [id number] 04/03/2019 12:12:08 AM [facility] Name Value Range Interpretation Description Data Sup porting Code Source(s) Document(s ) Glucose 95 MG/DL 65-110 [facility] - Good [Mass/volume] [facility] in Blood by [facility] Automated test strip ID Date Data Source [id number] 04/02/2019 11:54:22 PM [facility] Problem: Pressure Injury - Risk ofGoal: *Prevention of pressure injuryDescriptionDocument Butch Scale a nd appropriate interventions in the flowsheet.Outcome: Progressing Towards G oalNote: Pressure Injury Interventions:Sensory Interventions: Ass ess changes in LOCMoisture Interventions: Internal/External urinary devicesActivit y Interventions: Pressure redistribution bed/mattress(bed type)Mobility Intervent ions: Pressure redistribution bed/mattress (bed type)Nutrition Interventions: Docum ent food/fluid/supplement intakeFriction and Shear Interventions: Minimize layersProb olu: Patient Education: Go to Patient Education ActivityGoal: Patient/Family E ducationOutcome: Progressing Towards GoalProblem: Falls - Risk ofGoal: *Absen ce of FallsDescriptionDocument Samra Fall Risk and appropriate interventions in e flowsheet.Outcome: Progressing Towards GoalNote: Fall Risk Interventions:Mentat ion Interventions: Bed/chair exit alarmMedication Interventions: Bed/chair exit alarmElimination Interventions: Bed/chair exit alarmProblem: Patient Edu cation: Go to Patient Education ActivityGoal: Patient/Family EducationOutcome: Progres sing Towards GoalProblem: PainGoal: *Control of PainOutcome: Progressing Towards Goal Problem: Breathing Pattern - IneffectiveGoal: *Absence of hypoxiaOutcome: Progressing Towards GoalGoal: *Use of effective breathing techniquesOutcome: Progressing Towards G oalGoal: *PALLIATIVE CARE: Alleviation of DyspneaOutcome: Progressing Towards Goal Problem: Patient Education: Go to Patient Education ActivityGoal: Patient/Family E ducationOutcome: Progressing Towards GoalProblem: Seizure Disorder (Adult)Goa l: *STG: Remains free of seizure activityOutcome: Progressing Towards Goa lGoal: *STG: Maintains lab values within therapeutic rangeOutcome: Progressing To wards GoalProblem: Patient Education: Go to Patient Education ActivityGoal: Patient/ Family EducationOutcome: Progressing Towards Goal Name Value Range Interpretation Code Description Data Harriett rce(s) Supporting Document(s ) ID Date Data Source [id number] 04/02/2019 07:58:14 PM EST [facility] ID Progress Note04/02/2019Subjective:Pat ient with history of MR,COPD,recurrent aspiration pneumonia,dysphagia s/p pegpl acement was transferred from the long-term for respiratory distress,lowoxygen satur ation of 77% on 4 L nasal canula.Patient is non verbal,more awake today butunable to provide any historyAwake non verbal,unale to provide history,for midline insertionWBC trending downNO events overnightBlood culture no growth.AfebrileAwaiting Surg ical J tube placement as current on with leak and crack in theinlet portObjective:Revi ew of SystemsUnable to provide.Vitals:Patient Vitals for the past 24 hrs: BP Temp Puls e Resp SpO2 Gqctzf40/19/19 1311 118/66 98 F (36.7 C) (!) 54 20 95 % -04/02/19 0840 - - - - 95 % -04/02/19 0735 109/60 98.2 F (36.8 C) 66 20 98 % -04/02/19 0536 - - - - - 51.8 kg (114 lb 1.6 oz)04/02/19 0423 95/58 97.5 F (36.4 C) 65 20 96 % -03/15 01/01 0128 - - - - 94 % -04/02/19 0027 100/50 97.5 F (36.4 C) 63 20 93 % -04/01/19 2 023 113/82 97.5 F (36.4 C) 73 20 91 % -04/01/19 1552 (!) 122/93 97.8 F (36.6 C) 64 18 99 % -Tmax: Temp (24hrs), Av.8 F (36.6 C), Min:97.5 F (36.4 C), Max :98.2 F(36.8 C)Physical Exam:General: Awake, nonverbal cooperative, no distres s, appears stated age.Eyes: Conjunctivae/corneas clear. PERRLNeck: S upple, symmetrical, trachea midline, no adenopathyLungs: Bilateral breath soun ds with basal crackles..Heart: Regular rate and rhythm, S1, S2 normal, no murmurAbdo men: Soft, non-tender. Bowel sounds normal. No masses, Noorganomegaly.peg+Back: N o CVA tenderness.Extremities: Chronic lymphedema, no cyanosisPulses: 2+ and sy mmetric all extremities.Skin: Skin color, texture, turgor normal. No rashes or les ionsCurrent Facility-Administered MedicationsMedication Dose Route Frequen cy methylPREDNISolone (PF) (SOLU-MEDROL) injection 20 mg 20 mg IntraVENous Q12H potassium, sodium phosphates (NEUTRA-PHOS) packet 2 Packet 2 Packet Per GTube BID [START ON 04/03/2019] white petrolatum (VASELINE) ointment Topical DAILY 0.4 5% sodium chloride infusion 50 mL/hr IntraVENous CONTINUOUS acetylcysteine ( MUCOMYST) 100 mg/mL (10 %) nebulizer solution 400 mg 4 mLInhalation BID RT sodium ch loride (NS) flush 5-10 mL 5-10 mL IntraVENous PRN acetaminophen (TYLENOL) solution 650 mg 650 mg Per G Tube Q4H PRN cinacalcet (SENSIPAR) tablet 60 mg 60 m g Oral DAILY [Held by provider] heparin (porcine) injection 5,000 Units 5,000 U nitsSubCUTAneous Q12H lamoTRIgine (LaMICtal) tablet 50 mg 50 mg Per G Tube BID valp roic acid (as sodium salt) (DEPAKENE) 250 mg/5 mL (5 mL) oral solution 750mg 750 mg Per G Tube Q12H multivit-folic acid-herbal 275 (WELLESSE PLUS) oral liq uid 30 mL 30 mL Per GTube DAILY ALPRAZolam (XANAX) tablet 0.25 mg 0.25 mg Per G Tu be QPM albuterol-ipratropium (DUO-NEB) 2.5 MG-0.5 MG/3 ML 3 mL Nebulization Q6H RT budesonide (PULMICORT) 500 mcg/2 ml nebulizer suspension 500 mcg Nebulizati onBID RTLabs:Recent Labs 04/01/1906WBC 11.9* 22.1* 11.5*HGB 12.7* 13.1* 12.9*PLT 279 315 296BUN 15 12 17CREA 0.46* 0.48* 0.41*Cultures:L ab ResultsComponent Value Date/Time Culture result: NO GROWTH 5 DAYS 03/25/2019 03:1 0 AM Culture result: NO GROWTH 5 DAYS 03/25/2019 02:55 AM Culture result: NO G ROWTH 5 DAYS 03/11/2019 04:14 AM Culture result: NO GROWTH 5 DAYS 03/11/2019 04:1 4 AMRadiology:No results found.Assessment: Recurrent aspiration pneumonia. Acute C OPD exacerbation Acute hypercapnic respiratory failure. Dysphagia s/p peg placement.. Atelectasis sepsis ruled out Plan:1. Continue IV cefepime and vancomy Eric Gomez, MDDecembkarel PM Name Value Range Interpretation Code Description Data Harriett rce(s) Supporting Document(s ) ID Date Data Source [id number] 04/02/2019 04:41:21 PM EST [facility] Name Value Range Interpretation Description Data Sup porting Code Source(s) Document(s ) Glucose 150 MG/DL 65-110 Above high normal [facility] [Mass/volume] Taoist in Blood by Hospital Automated test strip ID Date Data Source [id number] 04/02/2019 03:41:37 PM EST [facility] KUB 2 view(s)History: Evaluate J-tube.C omparison: 11/22/2018.There is a new J-tube overlying the mid abdomen with kinking i nvolving itssuperior and inferior portion overlying the mid abdomen. These finding s werediscussed with male nurse Jacquelyn at 3:40 PM today..There is mild ileus of the sma ll bowel but there is no evidence of obstruction,radiopaque gallstones, or le ft kidney stones or an appendicolith. There arepossible right kidney stones. Absence of an appendicolith it does not excludeappendicitis. CT is suggested if clinically indicated.Old rib fractures are noted.IMPRESSION: Kinking of J-tube in 2 locations. Possible right kidney stonesIleus. Signing date/time: 04/02/20 3:41 PMSigned by: LIONEL LOCKHART Name Value Range Interpretation Code Description Data Harriett rce(s) Supporting Document(s ) ID Date Data Source [id number] 04/02/2019 02:28:24 PM [facility] Progress NotePatient: Evelio Carlin Sex: male DOA: 03/25/2019Date of : 1950 Age: 68 y.o. :[id number]:Reyes Carlin is 68 y.o. male with vm pulled off,appearing comfortable fornow. He is s/p endoscopic placement of jtube over PEG and removal of thecurrent defective tube on yesterday.RN reporting she is unable to access the the jtube port. She is encou nteringresistance upon inserting the feeding tube catheter into the jtube port. Thep atient is currently sandhya TF via the side port.The patient was seen by general nena keisha during this admission for eval ofsurgical placement of a Jtube. The nena geon is rec placement of PEJ tube rathersubjection the patient to surgery. The patient is considered a high risksurgical candidate.Pt has an occasio nal moist cough today. He is not expectorating.He is s/p EGD with positio keith of jenunal feeding tube and endoclipping on03/26/19Pt with TF leaking and was fo und with crack in the tube.Nursing staff was instructed by santiago weldon to use the side por t. He is sandhya TF.For jtube placement in morning. He has medical history of Dysp hagia, recurrent aspiration pneumonia, s/p g/tplacement 11/17/18 and conversion to j tube on02/07/19, hyperlipidemia,hyperparathyroid, unspeci fied,seizure, large hiatalhernia, anxiety disorder, personal history of pulmonary embolus,COPD, GERD,Schizophrenia unspecified, Kyphosis, Parkinson disease, Severe int ellectualdisabilities, Contractures and Generalized muscle weakness.As per the [facility] transfer record, the patient was transferred to the EDfor Hypoxia, he was found with O2 SAT 77 % on O2 NC 4 LPM and tachypneic. Hewas later placed on NRBM. Patient has a clogged jtube and the long-term hasbeen using the gtube site for fe edings and administration of medications.Pt was seen at [facility] by fatemeh Shabazz and jocelyn ns were for jtube placement, that wasscheduled for the same day as this spital admission.The patient is nonverbal and unable to participate with his histo ry.Patient was admitted with encounter diag of Acute Hypercapneic and Hypoxemicrespi ratory failure and aspiration pneumonia. Also, diag of COPD, Leukocytosis,Malfunc tioning jtube, dysphagia, Anxiety Disorder, contractures and Mentallychallenged are pertinent to this visit. 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 Pupils are equalThroat: Lips, mucosa, and tongue normal. No ThrushNeck: Supple, symmetrical, no adenopathy, no carotid bruit and no JVD.Lungs: Clear to auscultation bilaterally. No Wheezing o r Rhonchi. No rales.Chest wall: No Accessory muscle use.Heart: Regular ra te and rhythm, no murmur, or rub.Abdomen: Soft, non-tender. Not distended. Bowel sounds normal. No massesExtremities: Extremities normal, atraumatic, No cyano sis. No edema. No clubbingSkin: Warm and dry. No rashes or lesions. Not Jaundic edLymph nodes: Cervical, supraclavicular normal.Psych: Not anxious or agitated .Neurologic: EOMs intact. No facial asymmetry. Non verbal. Generalized weak ness,Alert and Awake.Intake and Output:Current Shift: 04/02 701 - 03/15In: -Out: 250 [Urine:250]Last three shifts: 03/31 1901 - 04/02 07In: 1359 [I.V.:559]Out: 1700 [Urine:1700]Lab/Data Reviewed:Recent Days:Recent Labs 04/01/1906WBC 11.9* 22.1* 11.5*HGB 12.7* 13.1* 12.9*HCT 39.9 * 40.5* 39.7*PLT 279 315 296Recent Labs 04/01/1910NA 136 -- 134* -- 136K 4.2 -- 3.9 -- 4.0CL 95* -- 97 * -- 98CO2 35* 39* 36* -- 39*GLU 114* -- 278* -- 84BUN 15 -- 12 -- 17CREA 0.46* -- 0.48* -- 0.41*CA 10.5* -- 10.6* -- 10.7*MG 2.1 -- 1.9 -- 2.3 PHOS 2.4* -- 2.4* -- 3.1ALB 2.3* -- 2.5* -- 2.4*INR -- -- -- 1.1 -- Recent Labs 012PH 7.50*PCO2 48PO2 76*HCO3 37*FIO2 40.0Ir Picc Insert Wo Po rt Over 5 Years Wo ImgResult Date: 04/01/2019IR PICC INSERT WO PORT OVER 5 YEARS WO IMG CLINICAL INDICATION PROVIDED.:"midline." Medical necessity f or vascular access. PROCEDURE: After beinginformed of the risks, benefits, po tential alternatives to the procedure theinformed consent was obtained. The pa tient was placed on the table the supineposition. The right upper extremit y was prepped and draped in the normal sterilefashion. Ultrasound interrogation was performed of the right upper extremity.Images were obtained. A locat ion was chosen over the right brachial vein abovethe antecubital fossa. Lidocaine so lution was used to anesthetize the scan.Access was gained under ultrasound guidance using a 21-gauge thin-walled needle.A 0.018 a wire was advanced under fluoroscopic guidance into the right axillaryvein. The needle was exchanged o lani a wire for the midline dilator and sheath.The dilator and wire were removed leaving the sheath in situ. Through the sheatha 5 Congolese double-lumen 20 cm midl ine catheter was placed. The peel-away sheathwas removed. The catheter was sewn into position using 2-0 silk sutures. Thepatient tolerated the procedure. Ther e were no complications at the time of theprocedure. FINDINGS: Ultrasound inter rogation revealed a widely patent brachialvein above the antecubital fossa . A 5 Congolese dual-lumen 20 cm midline catheterwas placed. The tip was placed i n good position over the right axillary vein.IMPRESSION: 5 Congolese dual-lumen mid line catheter placed with tip positioned overthe right axillary vein.Ct Chest Wo ContResult Date: 03/14/2019History: Respiratory difficulty. FINDINGS: CT sca nning of the chest wasperformed helically from lung apices to the upper abdomen wi thout intravenouscontrast dural. Sagittal and coronal reconstructed images are submitt ed.Scanning was performed utilizing dose lowering techniques and is compared to t leeannr study of 01/15/2019. Evaluation of thoracic vascular structures is limitedw ithout intravenous contrast material. There is, however, no definite CTevidence of d issection or focal aneurysmal dilatation. Some peripheralcalcification is noted. T here is no evidence of any pathologically enlargedlymph node within the visualized portions of the mediastinum or axillae. Somenonpathologically enlarged lymph nod es are seen. Again noted is elevation of theleft hemidiaphragm. A left small pleu ral effusion is noted as well asatelectatic change at the left lung base. Patchy opa city at the right lung baseis compatible with a right basilar infiltrate. There is tamie e patchy opacitywithin the right middle lobe as well. The right basal infiltrate is g reater insize than that seen previously. The pleural effusion is smaller. The rightmi ddle lobe infiltrate is similar. Limited evaluation of upper abdominalstructures reveals a tube within the stomach directed toward the duodenum.Diffuse hypertrophic degenerative changes are noted of the thoracic spine. Thereis again noted to b e shift of mediastinal structures to the right.IMPRESSION: Worsening right lower lobe infiltrate. Slight worsening of the rightmiddle lobe infiltrate. Improved le ft lung.Xr Chest PortResult Date: 03/25/2019CHEST one view HISTORY: Fever. Reflux. Gastrostomy. COMPARISON: 03/11/2019.There is a poor inspiratory e ffort which compromises this interpretation. Arepeat study is suggested. There is di scoid atelectasis and/or left lower lobeinfiltrate.There is no gross evidenc e of congestion, other infiltrates,effusions or pneumothorax.IMPRESSION: Possible lef t lower lobe infiltrate. Poor inspiratory effort.Xr Chest PortResult Date: 019CHEST one view HISTORY: Fever. COPD. Reflux. COMPARISON: 02/12/2019. Anadditi onal view was obtained. A tubular structure overlies the stomach andmidabdomen with some gastric distention and elevation of the left hemidiaphragm.There is a poor inspi ratory effort which compromises this interpretation. Arepeat study is suggest ed. .There is no gross evidence of congestion,infiltrates, effusions or pne umothorax. Old rib fractures are noted.IMPRESSION: No evidence of acute c ardiopulmonary disease. Poor inspiratoryeffort. Gastric distention.Me dications reviewedCurrent Facility-Administered MedicationsMedicat ion Dose Route Frequency methylPREDNISolone (PF) (SOLU-MEDROL) injection 20 mg 20 m g IntraVENous Q12H potassium, sodium phosphates (NEUTRA-PHOS) packet 2 Packet 2 Packet Per GTube BID [START ON 04/03/2019] white petrolatum (VASELINE) ointment Topical DAILY 0.45% sodium chloride infusion 50 mL/hr IntraVENous CONTINUOUS acetylcysteine (MUCOMYST) 100 mg/mL (10 %) nebulizer solution 400 mg 4 mLInhalation BID RT sodium chloride (NS) flush 5-10 mL 5-10 mL IntraVENous PRN acetaminophen (TYLENOL) solution 650 mg 650 mg Per G Tube Q4H PRN cinacalcet (SENSI PAR) tablet 60 mg 60 mg Oral DAILY [Held by provider] heparin (porcine) injection 5, 000 Units 5,000 UnitsSubCUTAneous Q12H lamoTRIgine (LaMICtal) tablet 50 mg 50 mg Per G Tube BID valproic acid (as sodium salt) (DEPAKENE) 250 mg/5 mL (5 mL) oral solution 750mg 750 mg Per G Tube Q12H multivit-folic acid-herbal 275 (WELLESSE PLUS) oral liquid 30 mL 30 mL Per GTube DAILY ALPRAZolam (XANAX) tablet 0.25 mg 0.25 mg Per G Tube QPM albuterol-ipratropium (DUO-NEB) 2.5 MG-0 .5 MG/3 ML 3 mL Nebulization Q6H RT budesonide (PULMICORT) 500 mcg/2 ml nebu lizer suspension 500 mcg NebulizationBID RTAssessment/Plan:Hospital Problems Pan e Reviewed: 04/02/2019 Codes Class Noted POA Acute hypoxemic respiratory fa ilure (HCC) ICD-10-CM: J96.01ICD-9-CM: 518.81 03/25/2019 UnknownAssessment:Acute Hype rcapneic, Hypoxemic Respiratory FailureAspiration PneumoniaCOPDLeukocyto sis- trending downwardMalfunctioning jtube; tubing appears to be defectiveDysphagia ( s/p gtube conversion to jtube on 02/07/19)Anxiety DisorderHyperparathyroi d Unspecified typeHypercalcemiaMentally challengedSeizure disorderHyponatremia- stableHypophosphate Plan:Continue IV cefepime and vancomycin per IDVM, PRN BIPAP per p ulmonaryMalfunctioning( new) jtubeGI follow upIv steroids taper per pulmonarynebuliz ersContinue mucomyst nebulizersCheck PTH- RPContinue sensiparRenal f/uReplace phos phorusFollow up culturesMonitor lytesIv fluids per renalNutritionist rec appreci atedPt has poor venous access; a mid line placement is medically necessaryTeofilo Gonzalez 2018Time: 2:09 PM Name Value Range Interpretation Code Description Data Harriett rce(s) Supporting Document(s ) ID Date Data Source [id number] 04/02/2019 02:27:44 PM EST [facility] ID Progress Note04/01/2019Subjective:Betty ient with history of MR,COPD,recurrent aspiration pneumonia,dysphagia s/p pegpl acement was transferred from the long-term for respiratory distress,lowoxygen satur ation of 77% on 4 L nasal canula.Patient is non verbal,more awake today butunable to provide any historyAwake non verbal,unale to provide history,for midline insertionWBC up ot 22K ( pt on IV steriod)Blood culture no growth.AfebrileAwaiting Surgical J t ube placement as current on with leak and crack in theinlet portObjective:Review o f SystemsUnable to provide.Vitals:Patient Vitals for the past 24 hrs: BP Temp Puls e Resp SpO2 Dwgqrl50/18/19 0804 150/64 97.8 F (36.6 C) 92 20 98 % -04/01/19 0637 - - - - - 50.7 kg (111 lb 12.8 oz)04/01/19 0502 (!) 165/104 97.5 F (36.4 C) 87 22 96 % -04/01/19 0130 - - - - 94 % -04/01/19 0020 148/89 97.7 F (36.5 C) (!) 108 22 91 % -03/31/19 2045 - - - - 93 % -03/31/19 2041 122/83 98.1 F (36.7 C) (!) 109 22 93 % -03/31/19 1640 125/73 98.2 F (36.8 C) 85 24 92 % -03/31/19 1206 122/90 - 89 24 90 % -03/31/19 0934 - - - - 95 % -Tmax: Temp (24hrs), Av.9 F (36.6 C), Min:97.5 F (36.4 C), Max:98.2 F(36.8 C)Physical Exam:General: Awake, nonverbal cooperat britni, no distress, appears stated age.Eyes: Conjunctivae/corneas clear. PERRLNeck: S upple, symmetrical, trachea midline, no adenopathyLungs: Bilateral breath soun ds with basal crackles..Heart: Regular rate and rhythm, S1, S2 normal, no murmurAbdo men: Soft, non-tender. Bowel sounds normal. No masses, Noorganomegaly.peg+Back: N o CVA tenderness.Extremities: Chronic lymphedema, no cyanosisPulses: 2+ and sy mmetric all extremities.Skin: Skin color, texture, turgor normal. No rashes or les ionsCurrent Facility-Administered MedicationsMedication Dose Route Frequen cy dextrose 5 % - 0.45% NaCl infusion 50 mL/hr IntraVENous CONTINUOUS methylPRED NISolone (PF) (SOLU-MEDROL) injection 40 mg 40 mg IntraVENous Q8H acetylcysteine (M UCOMYST) 100 mg/mL (10 %) nebulizer solution 400 mg 4 mLInhalation BID RT sodium ch loride (NS) flush 5-10 mL 5-10 mL IntraVENous PRN acetaminophen (TYLENOL) solution 650 mg 650 mg Per G Tube Q4H PRN cinacalcet (SENSIPAR) tablet 60 mg 60 m g Oral DAILY [Held by provider] heparin (porcine) injection 5,000 Units 5,000 U nitsSubCUTAneous Q12H lamoTRIgine (LaMICtal) tablet 50 mg 50 mg Per G Tube BID valp roic acid (as sodium salt) (DEPAKENE) 250 mg/5 mL (5 mL) oral solution 750mg 750 mg Per G Tube Q12H multivit-folic acid-herbal 275 (WELLESSE PLUS) oral liq uid 30 mL 30 mL Per GTube DAILY ALPRAZolam (XANAX) tablet 0.25 mg 0.25 mg Per G Tu be QPM albuterol-ipratropium (DUO-NEB) 2.5 MG-0.5 MG/3 ML 3 mL Nebulization Q6H RT vancomycin (VANCOCIN) 1,000 mg in 0.9% sodium chloride 250 mL IVPB 1,000 mgInt raVENous Q12H budesonide (PULMICORT) 500 mcg/2 ml nebulizer suspension 500 mcg N ebulizationBID RTLabs:Recent Labs 03/31/1905WB C 22.1* 11.5* 10.5HGB 13.1* 12.9* 14.4PLT 315 296 346BUN 12 17 12CREA 0.48* 0.41* 0.45 *Cultures:Lab ResultsComponent Value Date/Time Culture result: NO GROWTH 5 DA YS 03/25/2019 03:10 AM Culture result: NO GROWTH 5 DAYS 03/25/2019 02:55 AM Cultur e result: NO GROWTH 5 DAYS 03/11/2019 04:14 AM Culture result: NO GROWTH 5 DAYS 02/14 04:14 AMRadiology:No results found.Assessment: Recurrent aspiration pneumonia. Acute COPD exacerbation Acute hypercapnic respiratory failure. Dyspha jaydon s/p peg placement.. Atelectasis R/o sepsis. Plan:1. Continue IV cefepime and vancomycinMonica BossangelROSEMARYecember AM Name Value Range Interpretation Code Description Data Harriett rce(s) Supporting Document(s ) ID Date Data Source [id number] 04/02/2019 01:45:52 PM EST [facility] GI PROGRESS NOTENAME: Evelio Shukla hbeinDOB: 1950MRN: [id number]:Placed J tube over PEG yest and flushed it without trouble right afterprocedure. Pt then brought upstair s and nurse states could no longer flush theJ-tube port. Currently getting TF vi a side port again to stomach.Objective:abd softVITALS:Last 24hrs VS reviewed since prior progress note. Most recent are:Visit VitalsBP 118/66 (BP 1 Location: Left arm , BP Patient Position: At rest;Head of bedelevated (Comment degrees))Pulse (!) 54Temp 98 F (36.7 C)Resp 20Wt 51.8 kg (114 lb 1.6 oz)SpO2 95%BMI 20.87 kg/m Intake/ Output Summary (Last 24 hours) at 04/02/2019 1343Last data filed at 04/02/2019 0705Gr oss per 24 hourIntake 1100 mlOutput 1550 mlNet -450 mlPHYSICAL EXAM:General: Aler t, in no acute distressHEENT: Anicteric sclerae.Lungs: CTA Bilaterall y.Heart: Regular rhythm,Abdomen: Soft, Non distended, Non tender. (+)Bowel sounds, no HSMExtremities: No c/c/eNeurologic: CN 2-12 gi, Alert and oriented X 3. No acu te neurological distressPsych: Poor insight. Not anxious nor agitated.Lab Da ta Reviewed:Recent Labs 04/01/1906WBC 11.9* 22.1*HGB 12.7* 13. 1*HCT 39.9* 40.5*PLT 279 315Recent Labs 04/01/1910NA 136 -- 134*K 4.2 -- 3.9CL 95* -- 97*CO2 35* 39* 36*BUN 15 -- 12CREA 0.4 6* -- 0.48*GLU 114* -- 278*PHOS 2.4* -- 2.4*CA 10.5* -- 10.6*Recent Labs 04/01/1906ALB 2.3* 2.5* Pati ent Active Problem ListDiagnosis Code Parae sophageal hiatal hernia K44.9 COPD (chronic obstructive pulmonary disease) ([facility]) J44 .9 Acute respiratory distress R06.03 Pneumonia J18.9 COPD exacerbation ([facility]) J44.1 Sepsis due to undetermined organism ([facility]) A41.9 Generalized anxiety disorde r F41.1 Acute respiratory failure with hypoxia ([facility]) J96.01 Pneumonia involvin g right lung J18.9 Hyponatremia E87.1 SOB (shortness of breath) R06.02 Pressure i njury of right heel, stage [address]) L89.612 Leg wound, right, initial encounter S81. 801A Acute hypoxemic respiratory failure ([facility]) J96.01Assessment: Recurrently mal functioning J-tube over PEG - this tube is prone to problems.Discussed with surgeon about J-tube placement, He is concerned about anysurgical interventions due to p ts hernia.Plan: KUB x-ray to look for kink, If so may try un kinking tube with wire brush.Signed By: Diogo Collins MD 04/02/2019 1:43 PM Name Value Range Interpretation Code Description Data Harriett rce(s) Supporting Document(s ) ID Date Data Source [id number] 04/02/2019 01:03:42 PM EST [facility] Name Value Range Interpretation Description Data Sup porting Code Source(s) Document(s ) Glucose 154 MG/DL 65-110 Above high normal [facility] [Mass/volume] Taoist in Blood by Hospital Automated test strip ID Date Data Source [id number] 04/02/2019 11:55:02 AM EST [facility] Progress NoteMID-[facility]. ,P.C.Krystian Monae MD., F.C.C.P.Stella Hamilton MD., F.C.C.P. [address] [place] [id number] [place] [phone]: Evelio Carlin Sex: male DOA: 03/25/2019D ate of : 1950 Age: 68 y.o. LOS: LOS: 8 daysSubjective:Mr. Maximiliano mata is a 68 y.o. year old male who is beingseen for ACUTE RESPI RATORY FAILURE .PATIENT SENT BACK YESTERDAY WITHOUT REPLACING FRACTURE D P E G TBE BYANAESTHESIA AND G I CONCERN OF ACUTE RESPIRATORY FAILURE . H E HAVE SEVERE COPD , HE IS CO2 RETAINER BUT MORE AWAKE AND ALERT . HE IS COMFO RTABLE ON VM. TODAY SPO2 = 97 % HE TOLERATED PICC LINE INSERTION YESTER DAY. . Evelio Carlin is a 68 y.o. male with history of COPD, GERD,hyperpar athyroidism, Parkinsonism, pneumonia, schizophrenia, and pulmonaryemboli with a surgical history of gastrostomy who presents to the EmergencyDepartment via emergency medical services sent in from long-term for hypoxiaand [facility] pne [facility]. The patient has multiple incidences of pneumonia in thepast. The patient is nonverbal at baseline and cannot provide any history ofreview of systems at the time. PATIENT HAVE SEVERE CEREBRAL PALSY , MENTAL RETARDATION AND IS NON VERBAL .N O HX CANNOT BE CONFIRMED FROM PATIENT , CHART IS REVIEWED.MULTIPLE ADMISSIONS F OR ASPIRATION PNEUMONIA , HE IS BED RIDDEN . PATIENTT NOW IS ON BIPAP SUPPORT SP O2 = 96% ON FIO2 65% .PATIENT IS SLIGHTLY MORE AWAKE TODAY AND IS COMFORTABLE SPO2 0N 4 L N C = 92 % HAVE FRACTURED SEGMENT OF PEG TUBE NEAR INSERTION NEEDS REPLACEMENT . 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 Social History Tobacco Use Smoking status: Never Smoker Smokeless tobacco: Never UsedSubstance Use Topics Alcohol use: No History reviewed. No pertinent family history. No Known Aller gies Prior to Admission medicationsMedication Sig Start Date End Date Taking? Authorizing Providerheparin sodium,porcine (HEPARIN, PORCINE,) 5,000 unit/mL injection 1 mL bySubCUTAneous route every twelve (12) hours every twelve (12 ) hours. 03/17/19 Mili Hills DOmultivitamin (MULTI-DELYN, WELLESSE) l iqd 5 mL by Per G Tube route daily.03/17/19 Mili Hills DOacetaminophen (TYLEN OL) 32MG/ML soln solution Take 20.3 mL by mouth every four(4) hours as needed for Pain or Fever. 03/17/19 Mili Hills DOvalproic acid, as sodium salt, (DEPAKE NE) 250 mg/5 mL (5 mL) soln oral mg by Per G Tube route every twelve (12) hours. Provider, Edieacetylcysteine (MUCOMYST) 100 mg/mL (10 %) nebulizer solution Take 4 mL byinhalation two (2) times a day. Provider, Edieclorazepate (TRANXENE) 3.75 mg tablet 1 Tab by Per G Tube route nightly. MaxDaily Amount: 3.75 mg. 12/30/18 Mili Hills DOcinacalcet (SENSIPA R) 30 mg tablet Take 2 Tabs by mouth daily.Patient taking differently: 30 mg daily. Via G tube 12/30/18 Mili HillsDOlamoTRIgine (LAMICTAL) 25 mg t ablet 2 Tabs by Per G Tube route two (2) times aday. 12/30/18 Mili Hills DOalbuterol-ipratropium (DUO-NEB) 2.5 mg-0.5 mg/3 ml nebu 3 mL by Nebulizationroute e very six (6) hours. Every 6 hours while awakePatient taking differently: 3 mL by Nebulization route every four (4) hours asneeded. Every 6 hours while awake 12/30 Mili Hills DObudesonide (PULMICORT) 0.5 mg/2 mL nbsp 2 mL by Neb ulization route two (2) timesa day. 12/30/18 Mili Hills DO REVIEW OF SYSTEMS : SEVERE MENTAL RETARDATION , CANNOT DO ROS .General: negative for fever, chill s, sweats, weaknessEyes: negative for blurred vision, eye pain, loss of vision, diplop iaEar Nose and Throat: negative for rhinorrhea, pharyngitis, otalgia, tinnit us,speech or swallowing difficultiesRespiratory: negative for c ough, sputum production, SOB, wheezing, DAVALOS,pleuritic painCardiology: negative for chest pain, palpitations, orthopnea, PND, edema,syncopeGastrointestinal: negative for abdominal pain, N/V, dysphagia, change in bowelhabits, bleedingGenitourinary: nega tive for frequency, urgency, dysuria, hematuria, incontinenceMuskuloskeletal : negative for arthralgia, myalgiaHematology: negative for easy bruising, bleeding, ly mphadenopathyDermatological: negative for rash, ulceration, mole change, new lesio nEndocrine: negative for hot flashes or polydipsiaNeurological: negative for hea dache, dizziness, confusion, focal weakness,paresthesia, memory loss, gait disturbancePsychological: negative for anxiety, depression, agitation Objecti ve:Vital Signs:Patient Vitals for the past 24 hrs: BP Temp Pulse Resp SpO2 Cvxftc8704/02 0840 - - - - 95 % -04/02/19 0735 109/60 98.2 F (36.8 C) 66 20 98 % -04/02/19 0 536 - - - - - 51.8 kg (114 lb 1.6 oz)04/02/19 0423 95/58 97.5 F (36.4 C) 65 20 96 % -04/02/19 0128 - - - - 94 % -04/02/19 0027 100/50 97.5 F (36.4 C) 63 20 93 % - 2023 113/82 97.5 F (36.4 C) 73 20 91 % -04/01/19 1552 (!) 122/93 97.8 F (36. 6 C) 64 18 99 % -04/01/19 1356 125/52 98 F (36.7 C) 85 15 95 % -Pulse OX:SpO2 Read ings from Last 6 Encounters:04/02/19 95%03/17/19 92%02/19/19 96%02/18/19 92%1 93%12/30/18 96%@LASTSAO2(6)@Physical Exam:METALLY RETARDED , CRUMPLED BODY . General: Alert, cooperative, no RESPIRATORY distress, appears statedage . Head: Normocephalic, without obvious abnormality, atraumatic. Eyes: Conjunctivae/corneas clear. PERRL, EOMs intact. Nose: N dada normal. No drainage or sinus tenderness Throat: Lips, mucosa, and tongu e normal Neck: Supple, symmetrical, trachea midline, no adenopa thy,thyroid: no enlargement/tenderness/nodules, no carot id bruit and no JVD. Lungs: MILD RHONCHI AND , WHEEZING ARE LESS , IMPR KATHIE AIREXCHANGE to auscultation bilaterally. Chest Wall: No tendernes s or deformity. Heart: Regular rate and rhythm, S1, S2 normal, no murmu r, click,rub or gallop. Abdomen: Soft, non-tender. Bowel sounds normal. No mass es, No organomegaly. Extremities: Extremities normal, atraumatic, no cyano sis or edema. Pulses: 4+ bilaterally. Skin: Skin co nirali, texture, turgor normal. No rashes or lesions. Neurologic: CNII-XII intact. No focal motor or sensory deficit.Intake and Output:Last three shifts: 03/31 1901 - 04/02 0700In: 1359 [I.V.:559]Out: 1700 [Urine:1700]Lab Results:Recent Results ( from the past 24 hour(s))GLUCOSE, POC Collection Time: 04/01/19 11:53 AMResult Value Ref Range Glucose, bedside 101 65 - 110 MG/DLGLUCOSE, POC Collection Time: 1 06/02/18 4:00 PMResult Value Ref Range Glucose, bedside 81 65 - 110 MG/DLGLUCOS E, POC Collection Time: 04/02/19 12:56 AMResult Value Ref Range Glucose, bedsid e 180 (H) 65 - 110 MG/DLRENAL FUNCTION PANEL Collection Time: 04/02/19 5:59 AMResult Value Ref Range Sodium 136 136 - 145 mmol/L Potassium 4.2 3.5 - 5.1 mmol/L Chloride 95 (L) 98 - 107 mmol/L CO2 35 (H) 21 - 32 mmol/L Anion gap 11 10 - 20 mmol/L Gluco se 114 (H) 74 - 106 mg/dL BUN 15 7 - 18 mg/dL Creatinine 0.46 (L) 0.70 - 1.30 mg/dL GF R est AA >60 >60 ml/min/1.73m2 GFR est non-AA >60 >60 ml/min/1.73m2 Calcium 10.5 (H) 8 .5 - 10.1 mg/dL Phosphorus 2.4 (L) 2.5 - 4.9 mg/dL Albumin 2.3 (L) 3.5 - 4.7 g/dLMAGN ESIUM Collection Time: 04/02/19 5:59 AMResult Value Ref Range Magnesium 2.1 1 .6 - 2.6 mg/dLCBC WITH AUTOMATED DIFF Collection Time: 04/02/19 5:59 AMResult Value Ref Range WBC 11.9 (H) 4.8 - 10.6 K/uL RBC 4.10 (L) 4.70 - 6.00 M/uL HGB 12.7 ( L) 14.0 - 18.0 g/dL HCT 39.9 (L) 42.0 - 52.0 % MCV 97.3 (H) 81.0 - 94.0 FL MCH 31.0 2 7.0 - 35.0 PG MCHC 31.8 30.7 - 37.3 g/dL RDW 16.4 (H) 11.5 - 14.0 % PLATELET 279 130 - 400 K/uL MPV 9.6 9.2 - 11.8 FL NRBC 0.0 0 PER 100 WBC ABSOLUTE NRBC 0.00 0.0 - 0.0 1 K/uL NEUTROPHILS 86 (H) 48.0 - 72.0 % LYMPHOCYTES 8 (L) 18.0 - 40.0 % MONOCYTE S 4 2.0 - 12.0 % EOSINOPHILS 0 0.0 - 7.0 % BASOPHILS 0 0.0 - 3.0 % IMMATURE GRANULO CYTES 2 (H) 0 - 0.5 % ABS. NEUTROPHILS 10.2 (H) 2.3 - 7.6 K/UL ABS. LYMPHOCYTES 0.9 0.9 - 4.2 K/UL ABS. MONOCYTES 0.5 0.1 - 1.7 K/UL ABS. EOSINOPHILS 0.0 0.0 - 1.0 K/UL ABS. BASOPHILS 0.0 0.0 - 0.4 K/UL ABS. IMM. GRANS. 0.2 (H) 0.0 - 0.17 K/UL DF AUTOMA TEDGLUCOSE, POC Collection Time: 04/02/19 6:37 AMResult Value Ref Range Glucose, b edside 147 (H) 65 - 110 MG/DLABG:Recent Labs 2PH 7.50*PCO2 48PO2 76*HCO3 3 7*FIO2 40.0Recent Glucose Results:Lab ResultsComponent Value Date/Time GLU 114 (H) 04/02/2019 05:59 AM GLUCPOC 147 (H) 04/02/2019 06:37 AM GLUCPOC 180 (H) 03/15 12:56 AM GLUCPOC 81 04/01/2019 04:00 PM@[email or web address]@CULTURESAll M icro Results Procedure Component Value Units Date/Time CULTURE, BLOOD [[id number]] Col lected: 03/25/19 0255 Order Status: Completed Specimen: Blood Updated: 620 Special Requests: NO SPECIAL REQUESTS Culture result: NO GROWTH 5 DA YS CULTURE, BLOOD [[id number]] Collected: 03/25/19309 Order Status: Completed S pecimen: Blood Updated: 03/30/19620 Special Requests: NO SPECIAL REQUESTS C ulture result: NO GROWTH 5 DAYSImages:@IMAGESENCORD@Ir Picc Insert Wo Port Over 5 Years Wo ImgResult Date: 04/01/2019IR PICC INSERT WO PORT OVER 5 YEARS WO IMG CLINICAL INDICATION PROVIDED.:"midline." Medical necessity f or vascular access. PROCEDURE: After beinginformed of the risks, benefits, po tential alternatives to the procedure theinformed consent was obtained. The pa tient was placed on the table the supineposition. The right upper extremit y was prepped and draped in the normal sterilefashion. Ultrasound interrogation was performed of the right upper extremity.Images were obtained. A locat ion was chosen over the right brachial vein abovethe antecubital fossa. Lidocaine so lution was used to anesthetize the scan.Access was gained under ultrasound guidance using a 21-gauge thin-walled needle.A 0.018 a wire was advanced under fluoroscopic guidance into the right axillaryvein. The needle was exchanged o lani a wire for the midline dilator and sheath.The dilator and wire were removed leaving the sheath in situ. Through the sheatha 5 Congolese double-lumen 20 cm midl ine catheter was placed. The peel-away sheathwas removed. The catheter was sewn into position using 2-0 silk sutures. Thepatient tolerated the procedure. Ther e were no complications at the time of theprocedure. FINDINGS: Ultrasound inter rogation revealed a widely patent brachialvein above the antecubital fossa . A 5 Congolese dual-lumen 20 cm midline catheterwas placed. The tip was placed i n good position over the right axillary vein.IMPRESSION: 5 Congolese dual-lumen mid line catheter placed with tip positioned overthe right axillary vein.Ct Chest Wo ContResult Date: 03/14/2019History: Respiratory difficulty. FINDINGS: CT sca nning of the chest wasperformed helically from lung apices to the upper abdomen wi thout intravenouscontrast dural. Sagittal and coronal reconstructed images are submitt ed.Scanning was performed utilizing dose lowering techniques and is compared to t heprior study of 01/15/2019. Evaluation of thoracic vascular structures is limitedw ithout intravenous contrast material. There is, however, no definite CTevidence of d issection or focal aneurysmal dilatation. Some peripheralcalcification is noted. T here is no evidence of any pathologically enlargedlymph node within the visualized portions of the mediastinum or axillae. Somenonpathologically enlarged lymph nod es are seen. Again noted is elevation of theleft hemidiaphragm. A left small pleu ral effusion is noted as well asatelectatic change at the left lung base. Patchy opa city at the right lung baseis compatible with a right basilar infiltrate. There is tamie e patchy opacitywithin the right middle lobe as well. The right basal infiltrate is g reater insize than that seen previously. The pleural effusion is smaller. The rightmi ddle lobe infiltrate is similar. Limited evaluation of upper abdominalstructures reveals a tube within the stomach directed toward the duodenum.Diffuse hypertrophic degenerative changes are noted of the thoracic spine. Thereis again noted to b e shift of mediastinal structures to the right.IMPRESSION: Worsening right lower lobe infiltrate. Slight worsening of the rightmiddle lobe infiltrate. Improved le ft lung.Xr Chest PortResult Date: 03/25/2019CHEST one view HISTORY: Fever. Reflux. Gastrostomy. COMPARISON: 03/11/2019.There is a poor inspiratory e ffort which compromises this interpretation. Arepeat study is suggested. There is di scoid atelectasis and/or left lower lobeinfiltrate.There is no gross evidenc e of congestion, other infiltrates,effusions or pneumothorax.IMPRESSION: Possible lef t lower lobe infiltrate. Poor inspiratory effort.Xr Chest PortResult Date: 019CHEST one view HISTORY: Fever. COPD. Reflux. COMPARISON: 02/12/2019. Anadditi onal view was obtained. A tubular structure overlies the stomach andmidabdomen with some gastric distention and elevation of the left hemidiaphragm.There is a poor inspi ratory effort which compromises this interpretation. Arepeat study is suggest ed. .There is no gross evidence of congestion,infiltrates, effusions or pne umothorax. Old rib fractures are noted.IMPRESSION: No evidence of acute c ardiopulmonary disease. Poor inspiratoryeffort. Gastric distention.Me dications:Current Facility-Administered MedicationsMedication Dose Route Frequen cy 0.45% sodium chloride infusion 50 mL/hr IntraVENous CONTINUOUS methylPREDNISolo ne (PF) (SOLU-MEDROL) injection 40 mg 40 mg IntraVENous Q8H acetylcysteine (MUCOMYS T) 100 mg/mL (10 %) nebulizer solution 400 mg 4 mLInhalation BID RT sodium chloride (NS) flush 5-10 mL 5-10 mL IntraVENous PRN acetaminophen (TYLENOL) solution 650 mg 650 mg Per G Tube Q4H PRN cinacalcet (SENSIPAR) tablet 60 mg 60 mg Oral KYLEIGH Y [Held by provider] heparin (porcine) injection 5,000 Units 5,000 UnitsSubCUT Aneous Q12H lamoTRIgine (LaMICtal) tablet 50 mg 50 mg Per G Tube BID valproic acid (as sodium salt) (DEPAKENE) 250 mg/5 mL (5 mL) oral solution 750mg 750 mg Per G Tu be Q12H multivit-folic acid-herbal 275 (WELLESSE PLUS) oral liquid 30 mL 30 mL Per GTube DAILY ALPRAZolam (XANAX) tablet 0.25 mg 0.25 mg Per G Tube QPM albuter ol-ipratropium (DUO-NEB) 2.5 MG-0.5 MG/3 ML 3 mL Nebulization Q6H RT budesonide (PU LMICORT) 500 mcg/2 ml nebulizer suspension 500 mcg NebulizationBID RTActive Problem s: Acute hypoxemic respiratory failure (HCC) (03/25/2019)Assessment:1. ACUTE HYPERCAP NICOLAS AND HYPOXIC RESPIRATORY FAILURE2. SEVER COPD STABLE3. ASPIRATION PNEUMONIA 4. SMALL ATELECTASIS L L L5. FRACTURED P E G6. PARKINSONISM7. SEVERE MENTAL RE TARDATION8. KYPHOSIS9. HYPOVENTILATION Plan:1. PATIENT IS CLEARED TO HAVE PEG REPLACEMENT / REPAIRED ON BIPAPSUPPORT I P A P/ E P A P = 12/7 CM ,,RATE = 18 , FIO2 50 % , KEEP SPO2> 92% , MILD SEDATION CAN BE GIVEN WITH/ OR WITHOUT BIPAP SAFELY .AWAITING NEW J TUBE2. OF ORAL ROUTE IS NEEDED FOR ENDOSCOPY F OR P E G PLACEMENT, USE SMALL DOSE OF SEDATION OR SHORT INTUBATION TO SECURE AIRWAYS FOR PROCEDURE IS THE BEST3. F/ U CULTURES 4. AGREE WITH I V CEFEPIME AND VANCOMYCIN5. DECREASE I V SOLUMEDROL 20 MG Q 1 2 H6. DU O NEB QID7. I V FLUIDS8. CHEST PT 9. SOME IMPROVEMENT NOTED CONT SAME TREAT MENT 10. AWAITING NEW P EG / J TUBE FIXATION , MD Bella KnightCGualbertoP.Mar11:44 AM Name Value Range Interpretation Code Description Data Harriett rce(s) Supporting Document(s ) ID Date Data Source [id number] 04/02/2019 10:50:56 AM [facility] Progress NotePatient: Evelio Carlin Sex: male DOA: 03/25/2019Date of : 1950 Age: 68 y.o. :[id number]:Reyes Carlin is 68 y.o. male wearing a venti mask, he appears a littlelethargic, but easily arousable. Earlier today he had Endoscopic placement of Jtube over PEG a nd removal of the current defective tube.RN reporting she is currently unable to ins ert the TF tube into the jtube portto start the TF.Seen by general surgery on yester day for eval of surgical placement of a Jtube.The surgeon is rec placement of PE J tube rather subjection the patient tosurgery. The patient is considered a high risk surgical candidate.He has an occasional cough, but not expectorating. He is s/p EGD with positioning of jenunal feeding tube and endoclipping on03/26/19 Pt with TF leaking and was found with crack in the tube.Nursing staff was instructed by santiago weldon to use the side port. He is sandhya TF.For jtube placement in morning. He h as medical history of Dysphagia, recurrent aspiration pneumonia, s/p g/tconversion to jtube on 02/07/19, hyperlipidemia,hyperparathyroid,unspecif ied,seizure, large hiatal hernia, anxiety disorder, personal history ofpulmonary e mbolus,COPD, GERD, Schizophrenia unspecified, Kyphosis, Parkinsondisease, Severe inte llectual disabilities, Contractures and Generalized muscleweakness.As per the [facility] transfer record, the patient was transferred to the EDfor Hypoxia, he was found with O2 SAT 77 % on O2 NC 4 LPM and tachypneic. Hewas later placed on NRBM. Patient has a clogged jtube and the long-term hasbeen using the gtube site for fe edings and administration of medications.Pt was seen at [facility] by fatemeh Shabazz and jocelyn ns were for jtube placement, that wasscheduled for the same day as his hos pital admission.The patient is nonverbal and unable to participate with his history.P atient was admitted with encounter diag of Acute Hypercapneic and Hypoxemicrespirat ory failure and aspiration pneumonia. 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 Eyes: Conjunctivae clear, anicteric sclerae. Pupils are equalNeck: Supple, symmetrical, no adenopathy, no carotid bruit and no JVD.Lungs: Clear to auscu ltation bilaterally. No Wheezing or Rhonchi. No rales.Chest wall: No Accessory muscl e use.Heart: Regular rate and rhythm, no murmur, or rub.Abdomen: Soft, non-tend er. Not distended. Bowel sounds normal. No massesExtremities: Extremities normal, a traumatic, No cyanosis. No edema. No clubbingSkin: Warm and dry. No rash es or lesions. Not JaundicedLymph nodes: Cervical, supraclavicular normal.Psych: Not anxious or agitated.Neurologic: EOMs intact. No facial asymmetry. Non verbal Generalized weakness,Alert and AwakeIntake and Output:Current Shift: No intake/out put data recorded.Last three shifts: 03/31 701 - 04/01 1900In: 1701.5 [I.V.:1341.5 ]Out: 1700 [Urine:1700]Lab/Data Reviewed:Recent Days:Recent Labs 03/31/1905WBC 22.1* 11.5* 10.5HGB 13.1* 12.9* 14.4HCT 40.5* 39.7* 42.5PLT 315 296 346Recent Labs 04/01/1906 1 03/30/1905NA -- 134* -- 136 134*K -- 3.9 -- 4.0 4.8CL -- 97* -- 98 95*CO2 39* 36* -- 39* 34*GLU -- 278* -- 84 99BUN -- -- 12CRE A -- 0.48* -- 0.41* 0.45*CA -- 10.6* -- 10.7* 10.5*MG -- 1.9 -- 2.3 2.2P HOS -- 2.4* -- 3.1 3.1ALB -- 2.5* -- 2.4* 2.9*INR -- -- 1.1 -- --Recen t Labs 012PH 7.50*PCO2 48PO2 76*HCO3 37*FIO2 40.0Ir Picc Insert Wo Po rt Over 5 Years Wo ImgResult Date: 04/01/2019IR PICC INSERT WO PORT OVER 5 YEARS WO IMG CLINICAL INDICATION PROVIDED.:"midline." Medical necessity f or vascular access. PROCEDURE: After beinginformed of the risks, benefits, po tential alternatives to the procedure theinformed consent was obtained. The pa tient was placed on the table the supineposition. The right upper extremit y was prepped and draped in the normal sterilefashion. Ultrasound interrogation was performed of the right upper extremity.Images were obtained. A locat ion was chosen over the right brachial vein abovethe antecubital fossa. Lidocaine so lution was used to anesthetize the scan.Access was gained under ultrasound guidance using a 21-gauge thin-walled needle.A 0.018 a wire was advanced under fluoroscopic guidance into the right axillaryvein. The needle was exchanged o lani a wire for the midline dilator and sheath.The dilator and wire were removed leaving the sheath in situ. Through the sheatha 5 Congolese double-lumen 20 cm midl ine catheter was placed. The peel-away sheathwas removed. The catheter was sewn into position using 2-0 silk sutures. Thepatient tolerated the procedure. Ther e were no complications at the time of theprocedure. FINDINGS: Ultrasound inter rogation revealed a widely patent brachialvein above the antecubital fossa . A 5 Congolese dual-lumen 20 cm midline catheterwas placed. The tip was placed i n good position over the right axillary vein.IMPRESSION: 5 Congolese dual-lumen mid line catheter placed with tip positioned overthe right axillary vein.Ct Chest Wo ContResult Date: 03/14/2019History: Respiratory difficulty. FINDINGS: CT sca nning of the chest wasperformed helically from lung apices to the upper abdomen wi thout intravenouscontrast dural. Sagittal and coronal reconstructed images are submitt ed.Scanning was performed utilizing dose lowering techniques and is compared to t jasmeet study of 01/15/2019. Evaluation of thoracic vascular structures is limitedw ithout intravenous contrast material. There is, however, no definite CTevidence of d issection or focal aneurysmal dilatation. Some peripheralcalcification is noted. T here is no evidence of any pathologically enlargedlymph node within the visualized portions of the mediastinum or axillae. Somenonpathologically enlarged lymph nod es are seen. Again noted is elevation of theleft hemidiaphragm. A left small pleu ral effusion is noted as well asatelectatic change at the left lung base. Patchy opa city at the right lung baseis compatible with a right basilar infiltrate. There is tamie e patchy opacitywithin the right middle lobe as well. The right basal infiltrate is g reater insize than that seen previously. The pleural effusion is smaller. The rightmi ddle lobe infiltrate is similar. Limited evaluation of upper abdominalstructures reveals a tube within the stomach directed toward the duodenum.Diffuse hypertrophic degenerative changes are noted of the thoracic spine. Thereis again noted to b e shift of mediastinal structures to the right.IMPRESSION: Worsening right lower lobe infiltrate. Slight worsening of the rightmiddle lobe infiltrate. Improved le ft lung.Xr Chest PortResult Date: 03/25/2019CHEST one view HISTORY: Fever. Reflux. Gastrostomy. COMPARISON: 03/11/2019.There is a poor inspiratory e ffort which compromises this interpretation. Arepeat study is suggested. There is di scoid atelectasis and/or left lower lobeinfiltrate.There is no gross evidenc e of congestion, other infiltrates,effusions or pneumothorax.IMPRESSION: Possible lef t lower lobe infiltrate. Poor inspiratory effort.Xr Chest PortResult Date: 019CHEST one view HISTORY: Fever. COPD. Reflux. COMPARISON: 02/12/2019. Anadditi onal view was obtained. A tubular structure overlies the stomach andmidabdomen with some gastric distention and elevation of the left hemidiaphragm.There is a poor inspi ratory effort which compromises this interpretation. Arepeat study is suggest ed. .There is no gross evidence of congestion,infiltrates, effusions or pne umothorax. Old rib fractures are noted.IMPRESSION: No evidence of acute c ardiopulmonary disease. Poor inspiratoryeffort. Gastric distention.Me dications reviewedCurrent Facility-Administered MedicationsMedicat ion Dose Route Frequency 0.45% sodium chloride infusion 50 mL/hr IntraVENous CONTINUOUS propofol (DIPRIVAN) 10 mg/mL injection methylPREDNISolone (PF) (SOLU -MEDROL) injection 40 mg 40 mg IntraVENous Q8H acetylcysteine (MUCOMYST) 100 mg/mL (10 %) nebulizer solution 400 mg 4 mLInhalation BID RT sodium chloride (NS ) flush 5-10 mL 5-10 mL IntraVENous PRN acetaminophen (TYLENOL) solution 650 mg 650 mg Per G Tube Q4H PRN cinacalcet (SENSIPAR) tablet 60 mg 60 mg Oral KYLEIGH Y [Held by provider] heparin (porcine) injection 5,000 Units 5,000 UnitsSubCUT Aneous Q12H lamoTRIgine (LaMICtal) tablet 50 mg 50 mg Per G Tube BID valproic acid (as sodium salt) (DEPAKENE) 250 mg/5 mL (5 mL) oral solution 750mg 750 mg Per G Tu be Q12H multivit-folic acid-herbal 275 (WELLESSE PLUS) oral liquid 30 mL 30 mL Per GTube DAILY ALPRAZolam (XANAX) tablet 0.25 mg 0.25 mg Per G Tube QPM albuter ol-ipratropium (DUO-NEB) 2.5 MG-0.5 MG/3 ML 3 mL Nebulization Q6H RT budesonide (PU LMICORT) 500 mcg/2 ml nebulizer suspension 500 mcg NebulizationBID RTAssessment/Jocelyn n:Hospital Problems Date Reviewed: 04/01/2019 Codes Class Noted POA A cute hypoxemic respiratory failure (HCC) ICD-10-CM: J96.01ICD-9-CM: 518.81 03/25 UnknownAssessment:Acute Hypercapneic, Hypoxemic Respiratory FailureAspiration PneumoniaCOPDLeukocytosis- trending downwardMalfunctioning jtube; tubing kanika ears to be defectiveDysphagia ( s/p gtube conversion to jtube on 02/07/19)Anxiety DisorderHyperparathyroid Unspecified typeMentally challengedSeizure disorderH yponatremia- stableHypophosphate Plan:Continue IV cefepime and vancomycin per IDVM, PRN BIPAP per pulmonaryAwaiting arrival of new jtubeGI follow upIv stero ids taper per pulmonarynebulizersContinue mucomyst nebulizersFollow up culturesMon itor lytesIv fluids while TF on holdConsult to nutritionistPt has poor venous access ; a mid line placement is medically necessaryTeofilo Gonzalez 2018Time: 11:59 PM Name Value Range Interpretation Code Description Data Harriett rce(s) Supporting Document(s ) ID Date Data Source [id number] 04/02/2019 09:35:05 AM [facility] Progress NoteEmanuel Gdznaabme1 y.o.Adm it Date: 03/25/2019Active Problems: Acute hypoxemic respiratory failure (HCC) (02/2019)Subjective:Patient is less lthargic, non verbalPertinent items are noted in t he History of Present Illness.Objective:Visit VitalsBP 109/60 (BP 1 Location: Left arm , BP Patient Position: At rest;Head of bedelevated (Comment degrees))Pulse 66Te mp 98.2 F (36.8 C)Resp 20Wt 51.8 kg (114 lb 1.6 oz)SpO2 95%BMI 20.87 kg/m Intake and Output:Date 04/01/19699 - 04/02/19 0659 04/02/19699 - 04/03/19 0659Shift 0700- 1859 6992-3924 24 Hour Total 1966-5029 2281-9414 24 Hour TotalINTAKEI.V.(mL/kg/ hr) 300(0.5) 300(0.2) Volume (lactated Ringers infusion) 300 300NG/GT 800 800 Water Flush Volume (mL) (PEG/Gastrostomy Tube) 200 200 Intake (ml) (PEG/Gastros whitney Tube) 600 600Shift Total(mL/kg) 300(5.9) 800(15.5) 1100(21.3)OUTPUTUrine (mL/kg/hr) 1300(2.1) 1300(1) 250 250 Urine Voided 1300 1300 250 250Shift Total(mL /kg) 1300(25.6) 1300(25.1) 250(4.8) 250(4.8)NET -1000 800 -200 -250 -250Wei ght (kg) 50.7 51.8 51.8 51.8 51.8 51.8Medications Reviewed:Current Facilit y-Administered MedicationsMedication Dose Route Frequency Provider Last Rate Last Dose 0.45% sodium chloride infusion 50 mL/hr IntraVENous CONTINUOUS DgEmmanuel ryan MD 50 mL/hr at 04/01/19 1100 50 mL/hr at 04/01/19 1100 methylPREDNISolone (PF) ( SOLU-MEDROL) injection 40 mg 40 mg IntraVENous [id number] buchanan DO 40 mg at 04/02/19 0626 acetylcysteine (MUCOMYST) 100 mg/mL (10 %) nebulizer so lution 400 mg 4 mLInhalation BID RT Mili Hills DO 400 mg at 04/02/19 0837 s odium chloride (NS) flush 5-10 mL 5-10 mL IntraVENous PRN Jessie Neumann MD acetaminophen (TYLENOL) solution 650 mg 650 mg Per G Tube Q4H PRN Mili Hills DO cinacalcet (SENSIPAR) tablet 60 mg 60 mg Oral DAILY Mili Hills DO 60mg at 04/02/19 0823 [Held by provider] heparin (porcine) injection 5,000 Units 5,000 U nitsSubCUTAneous Q12H Mili Hills DO Stopped at 03/30/19 0725 lamoTRIgine (L aMICtal) tablet 50 mg 50 mg Per G Tube BID Mili Hills DO50 mg at 04/02/19 082 3 valproic acid (as sodium salt) (DEPAKENE) 250 mg/5 mL (5 mL) oral solution 750mg 750 mg Per G Tube Q12H Mili Hills DO 750 mg at 04/02/19 0823 multivit-folic acid-herbal 275 (WELLESSE PLUS) oral liquid 30 mL 30 mL Per GTube DAILY Patricio Hills DO 30 mL at 04/01/19 0900 ALPRAZolam (XANAX) tablet 0.25 mg 0.25 mg Per G Tu be QPM Mili Hills DO0.25 mg at 04/01/19 1825 albuterol-ipratropium (DUO-NEB) 2. 5 MG-0.5 MG/3 ML 3 mL Nebulization Q6H RTMiil Hills DO 3 mL at 04/02/19 0837 budesonide (PULMICORT) 500 mcg/2 ml nebulizer suspension 500 mcg Nebulizati onBID RT Mili Hills, DO 500 mcg at 04/02/19 0837Physical Exam:Physical Exam :General: Alert, cooperative, no distress, appears stated age.Eyes: Conjunctivae/c orneas clear.Neck: Supple, symmetrical, trachea midline, no adenopathy, thyroid: noenlargement/tenderness/nodules, no carotid bruit and no JVD.Lungs: Clear to auscu ltation bilaterally.Heart: Regular rate and rhythm, S1, S2 normal, no murmur, click, rub or gallop.Abdomen: Soft, non-tender. Bowel sounds normal. No masses, No orga nomegaly.Extremities: Extremities normal, atraumatic, no cyanosis or edema,Pulses: 2+ and symmetric all extremities.Skin: Skin color, texture, turgor normal. No rashes or lesionsData Review:Recent Results (from the past 24 hour(s))BLOOD GAS, ARTERIAL Collection Time: 04/01/19 10:12 AMResult Value Ref Range pH 7.50 (H) 7.35 - 7.45 PCO2 48 32 - 48 mmHg PO2 76 (L) 83 - 108 mmHg CO2, TOTAL 39 (H) 19 - 24 mmol/L BICARBO YARELI 37 (H) 21 - 28 mmol/L O2 SAT 97 94 - 98 % BASE EXCESS 12.4 (H) 0 - 3 mmol/L SITE RIGHT BRACHIAL DEVICE VENTURI MASK O2 FLOW 8 L/min FIO2 40.0 % Performed by [id number] OSE, POC Collection Time: 04/01/19 11:53 AMResult Value Ref Range Glucose, bedsid e 101 65 - 110 MG/DLGLUCOSE, POC Collection Time: 04/01/19 4:00 PMResult Value Ref Range Glucose, bedside 81 65 - 110 MG/DLGLUCOSE, POC Collection Time: 04/02 12:56 AMResult Value Ref Range Glucose, bedside 180 (H) 65 - 110 MG/DLRENAL FUNC TION PANEL Collection Time: 04/02/19 5:59 AMResult Value Ref Range Sodium 136 136 - 145 mmol/L Potassium 4.2 3.5 - 5.1 mmol/L Chloride 95 (L) 98 - 107 mmol/L CO2 35 ( H) 21 - 32 mmol/L Anion gap 11 10 - 20 mmol/L Glucose 114 (H) 74 - 106 mg/dL BUN 15 7 - 18 mg/dL Creatinine 0.46 (L) 0.70 - 1.30 mg/dL GFR est AA >60 >60 ml/min/1.73m2 G FR est non-AA >60 >60 ml/min/1.73m2 Calcium 10.5 (H) 8.5 - 10.1 mg/dL Phosphorus 2.4 (L) 2.5 - 4.9 mg/dL Albumin 2.3 (L) 3.5 - 4.7 g/dLMAGNESIUM Collection Time: 04/02 5:59 AMResult Value Ref Range Magnesium 2.1 1.6 - 2.6 mg/dLCBC WITH AUTOMATED DI FF Collection Time: 04/02/19 5:59 AMResult Value Ref Range WBC 11.9 (H) 4.8 - 10.6 K/uL RBC 4.10 (L) 4.70 - 6.00 M/uL HGB 12.7 (L) 14.0 - 18.0 g/dL HCT 39.9 (L) 42.0 - 52.0 % MCV 97.3 (H) 81.0 - 94.0 FL MCH 31.0 27.0 - 35.0 PG MCHC 31.8 30.7 - 37.3 g/d L RDW 16.4 (H) 11.5 - 14.0 % PLATELET 279 130 - 400 K/uL MPV 9.6 9.2 - 11.8 FL NRBC 0. 0 0 PER 100 WBC ABSOLUTE NRBC 0.00 0.0 - 0.01 K/uL NEUTROPHILS 86 (H) 48.0 - 72.0 % LY MPHOCYTES 8 (L) 18.0 - 40.0 % MONOCYTES 4 2.0 - 12.0 % EOSINOPHILS 0 0.0 - 7.0 % BASOP HILS 0 0.0 - 3.0 % IMMATURE GRANULOCYTES 2 (H) 0 - 0.5 % ABS. NEUTROPHILS 10.2 (H) 2.3 - 7.6 K/UL ABS. LYMPHOCYTES 0.9 0.9 - 4.2 K/UL ABS. MONOCYTES 0.5 0.1 - 1.7 K/UL A BS. EOSINOPHILS 0.0 0.0 - 1.0 K/UL ABS. BASOPHILS 0.0 0.0 - 0.4 K/UL ABS. IMM. G RANS. 0.2 (H) 0.0 - 0.17 K/UL DF AUTOMATEDGLUCOSE, POC Collection Time: 1 06/03/18 6:37 AMResult Value Ref Range Glucose, bedside 147 (H) 65 - 110 MG/DLI maging:No results found.Impression:Active Hospital Problems Diagnosis Date Noted Acute hypoxemic respiratory failure (HCC) 03/25/2019 Hyponatremia, correctedPl an:Continue IV antibiotics, vanco 1 gram q 12hvanco T in am ivf Ns at 50 ml/mMini mal free waterReplace [id number] [facility] MDDecember [facility] Name Value Range Interpretation Code Description Data Harriett rce(s) Supporting Document(s ) ID Date Data Source [id number] 04/02/2019 07:45:30 AM [facility] Review BIPAP settings, alarms and skin a dhesive With next shift RT [facility] Name Value Range Interpretation Code Description Data [facility] rce(s) Supporting Document(s ) ID Date Data Source [id number] 04/02/2019 06:51:05 AM [facility] Bedside and Verbal shift change report g iven to Amber rn (oncoming nurse) byMontserrat pitts (offgoing nurse). Report i ncluded the following information SBAR,Kardex, MAR, Recent Results and Car diac Rhythm sinus matthew. Name Value Range Interpretation Code Description Data [facility] rce(s) Supporting Document(s ) ID Date Data Source [id number] 04/02/2019 06:50:13 AM [facility] Name Value Range Interpretation Description Data Sup porting Code Source(s) Document(s ) Glucose 147 MG/DL 65-110 Above high normal [facility] [Mass/volume] [facility] in Blood by Hospital Automated test strip ID Date Data Source [id number] 04/02/2019 08:06:53 AM [facility] Name Value Range Interpretation Description Data Sup porting Code Source(s) Document(s ) Sodium 136 136-145 [facility] [Moles/volume] mmol/L [facility] in Serum or Hospital Plasma Potassium 4.2 3.5-5.1 [facility] [Moles/volume] mmol/L [facility] in Serum or Hospital Plasma Chloride 95 98-107 Below low normal [facility] [Moles/volume] mmol/L [facility] in Serum or Hospital Plasma Carbon 35 21-32 Above high normal [facility] dioxide, total mmol/L [facility] [Moles/volume] Hospital in Serum or Plasma Anion gap in 11 10-20 [facility] Serum or mmol/L [facility] Plasma Hospital Glucose 114 74-106 Above high normal [facility] [Mass/volume] mg/dL [facility] in Serum or Hospital Plasma Urea nitrogen 15 mg/dL 7-18 [facility] [Mass/volume] [facility] in Serum or Hospital Plasma Creatinine 0.46 0.70-1.3 Below low normal [facility] [Mass/volume] mg/dL 0 [facility] in Serum or Hospital Plasma Glomerular >60 [facility] filtration [facility] rate/1.73 sq M Hospital predicted among blacks [Volume Rate/Area] in Serum or Plasma by Creatinine-bas ed formula (MDRD) Glomerular >60 [facility] filtration [facility] rate/1.73 sq M Hospital predicted among non-blacks [Volume Rate/Area] in Serum or Plasma by Creatinine-bas ed formula (MDRD) Calcium 10.5 8.5-10.1 Above high normal [facility] [Mass/volume] mg/dL [facility] in Serum or Hospital Plasma Phosphate 2.4 2.5-4.9 Below low normal [facility] [Mass/volume] mg/dL [facility] in Serum or Hospital Plasma Albumin 2.3 g/dL 3.5-4.7 Below low normal [facility] [Mass/volume] [facility] in Serum or Hospital Plasma by Bromocresol purple (BCP) dye binding method ID Date Data Source [id number] 04/02/2019 08:06:53 AM EST [facility] Name Value Range Interpretation Description Data Sup porting Code Source(s) Document(s ) Magnesium 2.1 mg/dL 1.6-2.6 [facility] [Mass/volume] [facility] in Serum or Hospital Plasma ID Date Data Source [id number] 04/02/2019 08:15:03 AM EST [facility] Name Value Range Interpretation Description Data Sup porting Code Source(s) Document(s ) Leukocytes 11.9 4.8-10.6 Above high normal [facility] - [#/volume] in K/uL Good Blood by [facility] Automated count Hospital Erythrocytes 4.10 4.70-6.0 Below low normal [facility] - [#/volume] in M/uL 0 Good Blood by [facility] Automated count Hospital Hemoglobin 12.7 14.0-18. Below low normal [facility] - [Mass/volume] in g/dL 0 [facility] Blood [facility] Hematocrit 39.9 % 42.0-52. Below low normal [facility] - [Volume 0 Good Fraction] of [facility] Blood by Hospital Automated count Erythrocyte mean 97.3 FL 81.0-94. Above high normal [facility] - corpuscular 0 Good volume [Entitic Taoist volume] by Hospital Automated count Erythrocyte mean 31.0 PG 27.0-35. [facility] - corpuscular 0 Good hemoglobin [facility] [Entitic mass] Hospital by Automated count Erythrocyte mean 31.8 30.7-37. [facility] - corpuscular g/dL 3 Good hemoglobin Taoist concentration [facility] [Mass/volume] by Automated count Erythrocyte 16.4 % 11.5-14. Above high normal [facility] - distribution 0 Good width [Ratio] by [facility] Automated count Hospital Platelets 279 K/uL 130-400 [facility] - [#/volume] in [facility] Blood by Tao[facility] Automated count [facility] Platelet mean 9.6 FL 9.2-11.8 [facility] - volume [Entitic Good volume] in Blood [facility] by Automated Hospital count Nucleated 0.0 PER 0 [facility] - erythrocytes/100 100 WBC Good leukocytes [facility]ist [Ratio] in Blood Hospital Nucleated 0.00 0.0-0.01 [facility] - erythrocytes K/uL Good [#/volume] in Taoist Blood [facility] Segmented 86 % 48.0-72. Above high normal [facility] - neutrophils/100 0 Good leukocytes in [facility] Lymphocytes/100 8 % 18.0-40. Below low normal [facility] - leukocytes in 0 Good Blood [facility] Monocytes/100 4 % 2.0-12.0 [facility] - leukocytes in [facility] Eosinophils/100 0 % 0.0-7.0 [facility] - leukocytes in [facility] Basophils/100 0 % 0.0-3.0 [facility] - leukocytes in [facility] Immature 2 % 0-0.5 Above high normal [facility] - granulocytes/100 [facility] leukocytes in [facility] by Hospital Automated count Segmented 10.2 2.3-7.6 Above high normal [facility] - neutrophils K/UL Good [#/volume] in [facility] Lymphocytes 0.9 K/UL 0.9-4.2 [facility] - [#/volume] in [facility] Monocytes 0.5 K/UL 0.1-1.7 [facility] - [#/volume] in [facility] Eosinophils 0.0 K/UL 0.0-1.0 [facility] - [#/volume] in [facility] Basophils 0.0 K/UL 0.0-0.4 [facility] - [#/volume] in [facility] Immature 0.2 K/UL 0.0-0.17 Above high normal [facility] - granulocytes Good [#/volume] in [facility] by Hospital Automated count Differential [facility] - cell count [facility] ID Date Data Source [id number] 04/02/2019 01:43:18 AM EST [facility] Problem: Pressure Injury - Risk ofGoal: *Prevention of pressure injuryDescriptionDocument Butch Scale a nd appropriate interventions in the flowsheet.Outcome: Progressing Towards G oalNote: Pressure Injury Interventions:Sensory Interventions: Ass ess changes in LOC, Avoid rigorous massage over bonyprominences, Pressure redistrib ution bed/mattress (bed type)Moisture Interventions: Absorbent underpads, Inte rnal/External urinary devicesActivity Interventions: Pressure redistribution b ed/mattress(bed type)Mobility Interventions: Pressure redistribution bed/mattress (be d type), Turnand reposition approx. every two hours(pillow and wedges)Nutrition Interv entions: Document food/fluid/supplement intake, Offer supportwith meals,snacks a nd hydration, Discuss nutritional consult with providerFriction and Shear Interven tions: Minimize layersProblem: Patient Education: Go to Patient Education Activ ityGoal: Patient/Family EducationOutcome: Progressing Towards GoalProblem: Falls - Risk ofGoal: *Absence of FallsDescriptionDocument Samra Fall Ris k and appropriate interventions in the flowsheet.Outcome: Progressing Towards G oalNote: Fall Risk Interventions:Mentation Interventions: Adequate sleep, hydration , pain control, Room close tonurse's station, Door open when patient unattended, Bed/c hair exit alarmMedication Interventions: Bed/chair exit alarmElimination Interven tions: Bed/chair exit alarmProblem: Patient Education: Go to Patient Education Activ ityGoal: Patient/Family EducationOutcome: Progressing Towards GoalProblem: Breathi ng Pattern - IneffectiveGoal: *Absence of hypoxiaOutcome: Progressing Towards Goal Goal: *Use of effective breathing techniquesOutcome: Progressing Towards G oalGoal: *PALLIATIVE CARE: Alleviation of DyspneaOutcome: Progressing Towards Goal Problem: Patient Education: Go to Patient Education ActivityGoal: Patient/Family E ducationOutcome: Progressing Towards GoalProblem: Seizure Disorder (Adult)Goa l: *STG: Remains free of seizure activityOutcome: Progressing Towards Goa lGoal: *STG: Maintains lab values within therapeutic rangeOutcome: Progressing To wards GoalGoal: *STG/LTG: Complies with medication therapyOutcome: Progressing T owards GoalGoal: *STG: Remains free of injury during seizure activityOutcome: Progress ing Towards GoalGoal: *STG: Remains safe in hospitalOutcome: Progressing Towards Goa lGoal: InterventionsOutcome: Progressing Towards GoalProblem: Patient Education: Go to Patient Education ActivityGoal: Patient/Family EducationOutcome: Progres sing Towards GoalProblem: Nutrition DeficitGoal: *Tolerating enteral feeding DescriptionPt meets >75% of estimated energy and protein needs within 3-7 daysOutcome : Progressing Towards GoalProblem: Non-Violent RestraintsGoal: *Removal fro m restraints as soon as assessed to be safeOutcome: Progressing Towards GoalGoa l: *No harm/injury to patient while restraints in useOutcome: Progressing To wards GoalGoal: *Patient's dignity will be maintainedOutcome: Progressing Towards G oalGoal: *Patient Specific Goal (EDIT GOAL, INSERT TEXT)Outcome: Progressing Towards GoalGoal: Non-violent Restaints:Standard InterventionsOutcome: Progressing Toward s GoalGoal: Non-violent Restraints:Patient InterventionsOutcome: Progressing Toward s GoalGoal: Patient/Family EducationOutcome: Progressing Towards Goal Name Value Range Interpretation Code Description Data Harriett rce(s) Supporting Document(s ) ID Date Data Source [id number] 04/02/2019 01:09:17 AM EST [facility] Name Value Range Interpretation Description Data Sup porting Code Source(s) Document(s ) Glucose 180 MG/DL 65-110 Above high normal [facility] [Mass/volume] Tao[facility] in Blood by [facility] Automated test strip ID Date Data Source [id number] 04/01/2019 11:35:52 PM [facility] Called and left message for pt's niece. Called pt's sister Michell to discussfrequent readmissions and advance directives. Per Michell they are quaker andthey want full code and aggressive tx. Per Michell pt bishop p aspirating and gettingPNA's and they have spoken to the administrators at to fi nd out if they arepositioning him properly. Per Michell it's best to speak with pt's n aftabe as she ismore knowledgeable about pt issues as her is an MD. However christiano Rinconniece is in [place] and will not be back until next . Name Value Range Interpretation Code Description Data Harriett rce(s) Supporting Document(s ) ID Date Data Source [id number] 04/01/2019 04:16:55 PM [facility] Name Value Range Interpretation Description Data Sup porting Code Source(s) Document(s ) Glucose 81 MG/DL 65-[address] [facility] [Mass/volume] [facility] in Blood by Hospital Automated test strip ID Date Data Source [id number] 04/01/2019 02:20:49 PM EST [facility] TRANSFER - OUT REPORT:Verbal report give n to Jacquelyn on Evelio Carlin being transferred to forroutine progression of careReport consisted of patient's Situation, Background, Assessment andRec ommendations(SBAR).Information from the following report(s) SBAR, Procedure Summ connor and MAR wasreviewed with the receiving nurse.Opportunity for questions and clar ification was provided.Patient transported with: MonitorO2 @ 8 liters Name Value Range Interpretation Code Description Data Harriett rce(s) Supporting Document(s ) ID Date Data Source [id number] 04/01/2019 02:20:08 PM [facility] TRANSFER - IN REPORT:Verbal report recei nathaly from Jacquelyn on Evelio Carlin being received from [facility] forordered procedureRep ort consisted of patient's Situation, Background, Assessment andRecommendation s(SBAR).Information from the following report(s) SBAR and MAR was reviewed with thereceiving nurse.Opportunity for questions and clarification was provided.Assessmen t to becompleted upon patient's arrival to unit and care assumed. Name Value Range Interpretation Code Description Data [facility] rce(s) Supporting Document(s ) ID Date Data Source [id number] 04/01/2019 02:02:13 PM [facility] Esophago- Gastroduodenoscopy (EGD) [facility]/[id number]: Endo scopic Gastroduodenoscopy with endoscopic placement of J-tubeover PEGIndication: d ysphagiaPre-operative Diagnosis: see indication abovePost-operative Diagnosis : see findings belowOperator: JOSE Oleaeferragustin Provider: Mili Hills, Anesthesia/Sedation: MAC anesthesia PropofolProcedure DetailsAfter infomed c onsent was obtained for the procedure, with all risks andbenefits of procedure expla ined the patient was taken to the endoscopy suite andplaced in the left lateral decu bitus position. Following sequentialadministration of sedation as per above, the endoscope was inserted into themouth and advanced under direct visio n to proximal jejunum. A carefulinspection was made as the gastroscope was withdraw n, including a retroflexedview of the proximal stomach; findings and intervent ions are described below.Findings:Esophagus:normalStomach: normalDuodenum/jejunum: normalTherapies: Removed current defective tube and place d new J-tube into stomach,then dragged it deep into SB via an endoclip and clipped with 2 clips into proxjejunum.Specimens: * No specimens in log *EBL: NoneComplicati ons: None; patient tolerated the procedure well.Implants: NoneImpression:-suceefull placement of new tube - injected tube and no crack or leakage at thistime. abd binde r in place.Recommendations:-resume TF now, use middle prot. Only give Rx via side ports.Signed By: Diogo Collins MD 04/01/2019 1:59 PM Name Value Range Interpretation Code Description Data Harriett rce(s) Supporting Document(s ) ID Date Data Source [id number] 04/01/2019 12:21:01 PM EST [facility] Progress NoteMID-NOV[facility]. ,P.C.Krystian Monae MD., F.C.C.P.Stella Hamilton MD., F.C.C.P. 9W 1 [facility] [address] [place] [id number] [place] [phone]: Evelio Carlin Sex: male DOA: 03/25/2019D ate of : 1950 Age: 68 y.o. LOS: LOS: 7 daysSubjective:Mr. Maximiliano mata is a 68 y.o. year old male who is being seen forACUTE RESPIRA TORY FAILURE .PATIENT SENT BACK YESTERDAY WITHOUT REPLACING FRACTURED P E G TB E BYANAESTHESIA AND G I CONCERN OF ACUTE RESPIRATORY FAILURE . HE HAVE ELIU RE COPD , HE IS CO2 RETAINER BUT MORE AWAKE AND ALERT . HE IS COMFORTABLE ON VM. TODAY SPO2 = 97 % HE TOLERATED PICC LINE INSERTION TODAY . Ivelisse Carlin is a 68 y.o. male with history of COPD, GERD,hyperparathyroidism, Parki nsonism, pneumonia, schizophrenia, and pulmonaryemboli with a surgical history of gastrostomy who presents to the EmergencyDepartment via emergency medica l services sent in from long-term for hypoxiaand possible pneumonia. The patie nt has multiple incidences of pneumonia in thepast. [facility] and cannot provide any history ofreview of systems at the time. PATIENT HAVE SEVERE CEREBRAL PALSY , MENTAL RETARDATION AND IS NON VERBAL .NO HX CANNOT BE CONF IRMED FROM PATIENT , CHART IS REVIEWED.MULTIPLE ADMISSIONS FOR ASPIRA TION PNEUMONIA , HE IS BED RIDDEN . PATIENTT NOW IS ON BIPAP SUPPORT SPO2 = 96% ON FIO2 65% .PATIENT IS SLIGHTLY MORE AWAKE TODAY AND IS COMFORTABLE SPO2 0N 4 L N C = 92 % HAVE FRACTURED SEGMENT OF PEG TUBE NEAR INSERTION NEEDS REPLACEMENT . 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 Social History Tobacco Use Smoking status: Never Smoker Smokeless tobacco: Never UsedSubstance Use Topics Alcohol use: No History reviewed. No pertinent family history. No Known Aller gies Prior to Admission medicationsMedication Sig Start Date End Date Taking? Authorizing Providerheparin sodium,porcine (HEPARIN, PORCINE,) 5,000 unit/mL injection 1 mL bySubCUTAneous route every twelve (12) hours every twelve (12 ) hours. 03/17/19 Mili Hills DOmultivitamin (MULTI-DELYN, WELLESSE) l iqd 5 mL by Per G Tube route daily.03/17/19 Mili Hills DOacetaminophen (TYLEN OL) 32MG/ML soln solution Take 20.3 mL by mouth every four(4) hours as needed for Pain or Fever. 03/17/19 Mili Hills DOvalproic acid, as sodium salt, (DEPAKE NE) 250 mg/5 mL (5 mL) soln oral vqitcapn753 mg by Per G Tube route every twelve (12) hours. Provider, Historicalacetylcysteine (MUCOMYST) 100 mg/mL (10 %) nebulizer solution Take 4 mL byinhalation two (2) times a day. Provider, Historicalclorazepate (TRANXENE) 3.75 mg tablet 1 Tab by Per G Tube route nightly. MaxDaily Amount: 3.75 mg. 12/30/18 Mili Hills DOcinacalcet (SENSIPA R) 30 mg tablet Take 2 Tabs by mouth daily.Patient taking differently: 30 mg daily. Via G tube 12/30/18 Mili HillsDOlamoTRIgine (LAMICTAL) 25 mg t ablet 2 Tabs by Per G Tube route two (2) times aday. 12/30/18 Mili Hills DOalbuterol-ipratropium (DUO-NEB) 2.5 mg-0.5 mg/3 ml nebu 3 mL by Nebulizationroute e very six (6) hours. Every 6 hours while awakePatient taking differently: 3 mL by Nebulization route every four (4) hours asneeded. Every 6 hours while awake 12/30 Mili Hills DObudesonide (PULMICORT) 0.5 mg/2 mL nbsp 2 mL by Neb ulization route two (2) timesa day. 12/30/18 Mili Hills DO REVIEW OF SYSTEMS : SEVERE MENTAL RETARDATION , CANNOT DO ROS .General: negative for fever, chill s, sweats, weaknessEyes: negative for blurred vision, eye pain, loss of vision, diplop iaEar Nose and Throat: negative for rhinorrhea, pharyngitis, otalgia, tinnit us,speech or swallowing difficultiesRespiratory: negative for c ough, sputum production, SOB, wheezing, DAVALOS,pleuritic painCardiology: negative for chest pain, palpitations, orthopnea, PND, edema,syncopeGastrointestinal: negative for abdominal pain, N/V, dysphagia, change in bowelhabits, bleedingGenitourinary: nega tive for frequency, urgency, dysuria, hematuria, incontinenceMuskuloskeletal : negative for arthralgia, myalgiaHematology: negative for easy bruising, bleeding, ly mphadenopathyDermatological: negative for rash, ulceration, mole change, new lesio nEndocrine: negative for hot flashes or polydipsiaNeurological: negative for hea dache, dizziness, confusion, focal weakness,paresthesia, memory loss, gait disturbancePsychological: negative for anxiety, depression, agitation Objecti veObjective:Vital Signs:Patient Vitals for the past 24 hrs: BP Temp Pulse Resp SpO2 Dgrbsm75/18/19 1128 96/75 97.8 F (36.6 C) 79 18 92 % -04/01/19 0804 150/64 97.8 F (36.6 C) 92 20 98 % -04/01/19 0637 - - - - - 50.7 kg (111 lb 12.8 oz)04/01/19 0502 (!) 165/104 97.5 F (36.4 C) 87 22 96 % -04/01/19 0130 - - - - 94 % -04/01/19 00 20 148/89 97.7 F (36.5 C) (!) 108 22 91 % -03/31/19 2045 - - - - 93 % -03/31/19 20 41 122/83 98.1 F (36.7 C) (!) 109 22 93 % -03/31/19 1640 125/73 98.2 F (36.8 C) 85 24 92 % -Pulse OX:SpO2 Readings from Last 6 Encounters:04/01/19 92%03/17/19 92%10/31 96%02/18/19 92%01/24/19 93%12/30/18 96%@LASTSAO2(6)@Physical Exam:AWAKE , C OMFORTABLE RR = 24 . MT , NON VERBAL. General: Alert, cooperative, no distr ess, appears stated age. Head: Normocephalic, without obvious abnormali ty, atraumatic. Eyes: Conjunctivae/corneas clear. PERRL, EOMs intact. Nose: Nares normal. No drainage or sinus tenderness Thr oat: Lips, mucosa, and tongue normal Neck: Supple, symmetrical, trachea midline, no adenopathy,thyroid: no enlargement/tenderness/nodules, no carot id bruit and no JVD. Lungs: MILD WHEEZING AND RHONCHI BOTH LUNGS , R ALES + R L LAMD L L L to auscultation bilaterally. Chest Wall: No tendernes s or deformity. Heart: Regular rate and rhythm, S1, S2 normal, no murmu r, click,rub or NO gallop. Abdomen: Soft, non-tender. Bowel sounds normal. N o masses, No organomegaly. Extremities: Extremities normal, atraumatic, no cyano sis or edema. Pulses: 4+ bilaterally. Skin: Skin co nirali, texture, turgor normal. No rashes or lesions. Neurologic: CNII-XII intact. No focal motor or sensory deficit.Intake and Output:Last three shifts: 03/30 1901 - 04/01 0700In: 1651.5 [I.V.:1041.5]Out: 400 [Urine:400]Lab Results:Recent Results (f rom the past 24 hour(s))GLUCOSE, POC Collection Time: 03/31/19 4:42 PMResult Value Ref Range Glucose, bedside 115 (H) 65 - 110 MG/DLGLUCOSE, POC Collection Time: 04/01/19 12:49 AMResult Value Ref Range Glucose, bedside 102 65 - 110 MG/DLRENAL FUNCTION PANEL Collection Time: 04/01/19 6:00 AMResult Value Ref Range Sodium 134 (L) 136 - 145 mmol/L Potassium 3.9 3.5 - 5.1 mmol/L Chloride 97 (L) 98 - 107 mmol/L C O2 36 (H) 21 - 32 mmol/L Anion gap 6 (L) 10 - 20 mmol/L Glucose 278 (H) 74 - 106 mg/dL BUN 12 7 - 18 mg/dL Creatinine 0.48 (L) 0.70 - 1.30 mg/dL GFR est AA >60 >60 ml/min/1 .73m2 GFR est non-AA >60 >60 ml/min/1.73m2 Calcium 10.6 (H) 8.5 - 10.1 mg/dL Phosph orus 2.4 (L) 2.5 - 4.9 mg/dL Albumin 2.5 (L) 3.5 - 4.7 g/dLMAGNESIUM Collection Time: 04/01/19 6:00 AMResult Value Ref Range Magnesium 1.9 1.6 - 2.6 mg/dLCBC WITH AU TOMATED DIFF Collection Time: 04/01/19 6:00 AMResult Value Ref Range WBC 22.1 (H) 4. 8 - 10.6 K/uL RBC 4.22 (L) 4.70 - 6.00 M/uL HGB 13.1 (L) 14.0 - 18.0 g/dL HCT 40.5 ( L) 42.0 - 52.0 % MCV 96.0 (H) 81.0 - 94.0 FL MCH 31.0 27.0 - 35.0 PG MCHC 32.3 30.7 - 37.3 g/dL RDW 16.4 (H) 11.5 - 14.0 % PLATELET 315 130 - 400 K/uL MPV 9.8 9.2 - 11.8 FL NRBC 0.0 0 PER 100 WBC ABSOLUTE NRBC 0.00 0.0 - 0.01 K/uL NEUTROPHILS 89 (H) 48.0 - 72.0 % LYMPHOCYTES 6 (L) 18.0 - 40.0 % MONOCYTES 4 2.0 - 12.0 % EOSINOPH ILS 0 0.0 - 7.0 % BASOPHILS 0 0.0 - 3.0 % IMMATURE GRANULOCYTES 1 (H) 0 - 0.5 % AB S. NEUTROPHILS 19.6 (H) 2.3 - 7.6 K/UL ABS. LYMPHOCYTES 1.4 0.9 - 4.2 K/UL ABS. MONO CYTES 0.9 0.1 - 1.7 K/UL ABS. EOSINOPHILS 0.0 0.0 - 1.0 K/UL ABS. BASOPHILS 0.0 0.0 - 0.4 K/UL ABS. IMM. GRANS. 0.2 (H) 0.0 - 0.17 K/UL DF AUTOMATEDGLUCOSE, POC Collection Time: 04/01/19 6:30 AMResult Value Ref Range Glucose, bedside 124 (H) 65 - 110 MG/DLBLOOD GAS, ARTERIAL Collection Time: 04/01/19 10:12 AMResult Value Ref Range pH 7.50 (H) 7.35 - 7.45 PCO2 48 32 - 48 mmHg PO2 76 (L) 83 - 108 mmHg CO2, TOTAL 39 ( H) 19 - 24 mmol/L BICARBONATE 37 (H) 21 - 28 mmol/L O2 SAT 97 94 - 98 % BASE EXCESS 1 2.4 (H) 0 - 3 mmol/L SITE RIGHT BRACHIAL DEVICE VENTURI MASK O2 FLOW 8 L/min FIO2 40.0 % Performed by [id number], POC Collection Time: 04/01/19 11:53 AMResult Value Ref Range Glucose, bedside 101 65 - 110 MG/DLABG:Recent Labs H 7.50*PCO2 48PO2 76*HCO3 37*FIO2 40.0Recent Glucose Results:Lab ResultsComponent Seema ue Date/Time GLU 278 (H) 04/01/2019 06:00 AM GLUCPOC 101 04/01/2019 11:53 AM GLUCPOC 124 (H) 04/01/2019 06:30 AM GLUCPOC 102 04/01/2019 12:49 AM@[email or web address] Micro Results Procedure Component Value Units Date/Time CULTURE, BLOOD [[id number]] Collected: 03/25/19 0255 Order Status: Completed Specimen: Bloo d Updated: 03/30/19620 Special Requests: NO SPECIAL REQUESTS Culture result: NO GROWTH 5 DAYS CULTURE, BLOOD [[id number]] Collected: 03/25/19309 Order Status: Completed Specimen: Blood Updated: 03/30/19620 Special Requests: NO SPEC IAL REQUESTS Culture result: NO GROWTH 5 DAYSImages:[email or web address] Picc Insert Wo Port Over 5 Years Wo ImgResult Date: 04/01/2019IR PICC INSERT WO PORT OVER 5 YEARS WO IMG CLINICAL INDICATION PROVIDED.:"midline." Medical necessity f or vascular access. PROCEDURE: After beinginformed of the risks, benefits, po tential alternatives to the procedure theinformed consent was obtained. The pa tient was placed on the table the supineposition. The right upper extremit y was prepped and draped in the normal sterilefashion. Ultrasound interrogation was performed of the right upper extremity.Images were obtained. A locat ion was chosen over the right brachial vein abovethe antecubital fossa. Lidocaine so lution was used to anesthetize the scan.Access was gained under ultrasound guidance using a 21-gauge thin-walled needle.A 0.018 a wire was advanced under fluoroscopic guidance into the right axillaryvein. The needle was exchanged o lani a wire for the midline dilator and sheath.The dilator and wire were removed leaving the sheath in situ. Through the sheatha 5 Congolese double-lumen 20 cm midl ine catheter was placed. The peel-away sheathwas removed. The catheter was sewn into position using 2-0 silk sutures. Thepatient tolerated the procedure. Ther e were no complications at the time of theprocedure. FINDINGS: Ultrasound inter rogation revealed a widely patent brachialvein above the antecubital fossa . A 5 Congolese dual-lumen 20 cm midline catheterwas placed. The tip was placed i n good position over the right axillary vein.IMPRESSION: 5 Congolese dual-lumen mid line catheter placed with tip positioned overthe right axillary vein.Ct Chest Wo ContResult Date: 03/14/2019History: Respiratory difficulty. FINDINGS: CT sca nning of the chest wasperformed helically from lung apices to the upper abdomen wi thout intravenouscontrast dural. Sagittal and coronal reconstructed images are submitt ed.Scanning was performed utilizing dose lowering techniques and is compared to t heprior study of 01/15/2019. Evaluation of thoracic vascular structures is limitedw ithout intravenous contrast material. There is, however, no definite CTevidence of d issection or focal aneurysmal dilatation. Some peripheralcalcification is noted. T here is no evidence of any pathologically enlargedlymph node within the visualized portions of the mediastinum or axillae. Somenonpathologically enlarged lymph nod es are seen. Again noted is elevation of theleft hemidiaphragm. A left small pleu ral effusion is noted as well asatelectatic change at the left lung base. Patchy opa city at the right lung baseis compatible with a right basilar infiltrate. There is tamie e patchy opacitywithin the right middle lobe as well. The right basal infiltrate is g reater insize than that seen previously. The pleural effusion is smaller. The rightmi ddle lobe infiltrate is similar. Limited evaluation of upper abdominalstructures reveals a tube within the stomach directed toward the duodenum.Diffuse hypertrophic degenerative changes are noted of the thoracic spine. Thereis again noted to b e shift of mediastinal structures to the right.IMPRESSION: Worsening right lower lobe infiltrate. Slight worsening of the rightmiddle lobe infiltrate. Improved le ft lung.Xr Chest PortResult Date: 03/25/2019CHEST one view HISTORY: Fever. Reflux. Gastrostomy. COMPARISON: 03/11/2019.There is a poor inspiratory e ffort which compromises this interpretation. Arepeat study is suggested. There is di scoid atelectasis and/or left lower lobeinfiltrate.There is no gross evidenc e of congestion, other infiltrates,effusions or pneumothorax.IMPRESSION: Possible lef t lower lobe infiltrate. Poor inspiratory effort.Xr Chest PortResult Date: 019CHEST one view HISTORY: Fever. COPD. Reflux. COMPARISON: 02/12/2019. Anadditi onal view was obtained. A tubular structure overlies the stomach andmidabdomen with some gastric distention and elevation of the left hemidiaphragm.There is a poor inspi ratory effort which compromises this interpretation. Arepeat study is suggest ed. .There is no gross evidence of congestion,infiltrates, effusions or pne umothorax. Old rib fractures are noted.IMPRESSION: No evidence of acute c ardiopulmonary disease. Poor inspiratoryeffort. Gastric distention.Me dications:Current Facility-Administered MedicationsMedication Dose Route Frequen cy 0.45% sodium chloride infusion 50 mL/hr IntraVENous CONTINUOUS methylPREDNISolo ne (PF) (SOLU-MEDROL) injection 40 mg 40 mg IntraVENous Q8H acetylcysteine (MUCOMYS T) 100 mg/mL (10 %) nebulizer solution 400 mg 4 mLInhalation BID RT sodium chloride (NS) flush 5-10 mL 5-10 mL IntraVENous PRN acetaminophen (TYLENOL) solution 650 mg 650 mg Per G Tube Q4H PRN cinacalcet (SENSIPAR) tablet 60 mg 60 mg Oral KYLEIGH Y [Held by provider] heparin (porcine) injection 5,000 Units 5,000 UnitsSubCUT Aneous Q12H lamoTRIgine (LaMICtal) tablet 50 mg 50 mg Per G Tube BID valproic acid (as sodium salt) (DEPAKENE) 250 mg/5 mL (5 mL) oral solution 750mg 750 mg Per G Tu be Q12H multivit-folic acid-herbal 275 (WELLESSE PLUS) oral liquid 30 mL 30 mL Per GTube DAILY ALPRAZolam (XANAX) tablet 0.25 mg 0.25 mg Per G Tube QPM albuter ol-ipratropium (DUO-NEB) 2.5 MG-0.5 MG/3 ML 3 mL Nebulization Q6H RT budesonide (PU LMICORT) 500 mcg/2 ml nebulizer suspension 500 mcg NebulizationBID RTActive Problem s: Acute hypoxemic respiratory failure (HCC) (03/25/2019)Assessment:1. ACUTE HYPERCAP NICOLAS AND HYPOXIC RESPIRATORY FAILURE2. SEVER COPD STABLE3. ASPIRATION PNEUMONIA 4. SMALL ATELECTASIS L L L5. FRACTURED P E G6. PARKINSONISM7. SEVERE MENTAL RE TARDATION8. KYPHOSIS9. HYPOVENTILATION Plan: 1.PATIENT IS CLEARED TO HAVE PEG REPLACEMENT / REPAIRED ON BIPAP SUPPORTI P A P/ E P A P = 12/7 CM ,,RAT E = 18 , FIO2 50 % , KEEP SPO2 > 92% ,MILD SEDATION CAN BE GIVEN WITH/ OR W ITHOUT BIPAP SAFELY .2. OF ORAL ROUTE IS NEEDED FOR ENDOSCOPY FOR P E G PLACEM ENT, USE SMALL DOSE OF SEDATION OR SHORT INTUBATION TO SECURE AIRWAYS FOR PROCEDURE IS THE BEST3. F/ U CULTURES 4. AGREE WITH I V CEFEPIME AND VANCOMYCIN5. I V SOLUMEDROL6. DUO NEB QID7. I V FLUIDS8. CHEST PT 9. SOME IMPROVEMENT NOTED ., CONT SAME TREATMENT 10. NEED P EG / J TUBE FIX ATION Krystian Monae MD F.C.C.P.April 01, 201912:12 PM Name Value Range Interpretation Code Description Data Harriett rce(s) Supporting Document(s ) ID Date Data Source [id number] 04/01/2019 12:05:38 PM EST [facility] Name Value Range Interpretation Description Data Sup porting Code Source(s) Document(s ) Glucose 101 MG/DL 65-110 [facility] [Mass/volume] Taoist in Blood by Hospital Automated test strip ID Date Data Source [id number] 04/01/2019 10:52:56 AM EST [facility] Progress NoteEmanuel Dyikeuhlk28 y.o.Adm it Date: 03/25/2019Active Problems: Acute hypoxemic respiratory failure (HCC) (02/2019)Subjective:Patient is less lthargic, non verbalPertinent items are noted in t he History of Present Illness.Objective:Visit VitalsBP 150/64 (BP 1 Location: Right ar m, BP Patient Position: At rest)Pulse 92Temp 97.8 F (36.6 C)Resp 20Wt 50.7 kg (111 lb 12.8 oz)SpO2 98%BMI 20.45 kg/m Intake and Output:Date 03/31/19 07 - 04/01/19 065 9 04/01/19 07 - 04/02/19 0659Shift 7508-9780 3222-8192 24 Hour Total 0700-1 859 6083-5061 24 Hour TotalINTAKEI.V.(mL/kg/hr) 782.5(1.2) 259 (0.4) 1041.5(0.9) Volume (dextrose 5 % - 0.45% NaCl infusion) 432.5 432.5 Volum e (cefepime (MAXIPIME) 1 g in 0.9% sodium chloride (MBP/ADV) 50 mL MBP)100 100 V olume (vancomycin (VANCOCIN) 1,000 mg in 0.9% sodium chloride 250 mL IVPB)250 259 509N G/GT 360 360 Water Flush Volume (mL) (PEG/Gastrostomy Tube) 100 100 Medicat ion Volume (PEG/Gastrostomy Tube) 100 100 Intake (ml) (PEG/Gastrostomy Tube) 160 160Shift Total(mL/kg) 1142.5(21.7) 259(5.1) 1401.5(27.6)OUTPUTUrine(mL/kg/hr) 400(0 .7) 400(0.3) Urine Voided 400 400Shift Total(mL/kg) 400(7.9) 400(7.9)NET 1142. 5 -141 1001.5Weight (kg) 52.6 50.7 50.7 50.7 50.7 50.7Medications Reviewed:Current Fa cility-Administered MedicationsMedication Dose Route Frequency Provider Last Rate Last Dose dextrose 5 % - 0.45% NaCl infusion 50 mL/hr IntraVENous CONTINUOUS Mili Hills DO 50 mL/hr at 04/01/19 0311 50 mL/hr at 04/01/19 0311 methylPREDNISolo ne (PF) (SOLU-MEDROL) injection 40 mg 40 mg IntraVENous T5HAinictMili buchanan DO 40 mg at 04/01/19 0639 acetylcysteine (MUCOMYST) 100 mg/mL (10 %) nebulizer so lution 400 mg 4 mLInhalation BID RT Mili Hills DO 400 mg at 04/01/19 0812 s odium chloride (NS) flush 5-10 mL 5-10 mL IntraVENous PRN Jessie Neumann MD acetaminophen (TYLENOL) solution 650 mg 650 mg Per G Tube Q4H PRN Mili Hills DO cinacalcet (SENSIPAR) tablet 60 mg 60 mg Oral DAILY Mili Hills DO 60mg at 04/01/19 0900 [Held by provider] heparin (porcine) injection 5,000 Units 5,000 U nitsSubCUTAneous Q12H Mili Hills DO Stopped at 03/30/19 0725 lamoTRIgine (L aMICtal) tablet 50 mg 50 mg Per G Tube BID Mili Hills DO50 mg at 04/01/19 103 4 valproic acid (as sodium salt) (DEPAKENE) 250 mg/5 mL (5 mL) oral solution 750mg 750 mg Per G Tube Q12H Mili Hills DO 750 mg at 04/01/19 1034 multivit-folic acid-herbal 275 (WELLESSE PLUS) oral liquid 30 mL 30 mL Per GTube DAILY Patricio Hills DO 30 mL at 04/01/19 0900 ALPRAZolam (XANAX) tablet 0.25 mg 0.25 mg Per G Tu be QPM Mili Hills DO0.25 mg at 03/31/19 1739 albuterol-ipratropium (DUO-NEB) 2. 5 MG-0.5 MG/3 ML 3 mL Nebulization Q6H RTMili Hills DO 3 mL at 04/01/19 0812 vancomycin (VANCOCIN) 1,000 mg in 0.9% sodium chloride 250 mL IVPB 1,000 mgInt raVENous Q12H Natasha Dudley MD 125 mL/hr at 04/01/19 0900 1,000 mg at106/02/18 0900 budesonide (PULMICORT) 500 mcg/2 ml nebulizer suspension 500 mcg NebulizationBID RT N Mili buchanan, DO 500 mcg at 04/01/19 0812Physical Exam:Physical Exam:General: Alert, cooperative, no distress, appears stated age.Eyes: Conjunctivae/corneas c lear.Neck: Supple, symmetrical, trachea midline, no adenopathy, thyroid: noenlar gement/tenderness/nodules, no carotid bruit and no JVD.Lungs: Clear to auscultatio n bilaterally.Heart: Regular rate and rhythm, S1, S2 normal, no murmur, click, rub or gallop.Abdomen: Soft, non-tender. Bowel sounds normal. No masses, No orga nomegaly.Extremities: Extremities normal, atraumatic, no cyanosis or edema,Pulses: 2+ and symmetric all extremities.Skin: Skin color, texture, turgor normal. No rashes or lesionsData Review:Recent Results (from the past 24 hour(s))GLUCOSE, POC Collect ion Time: 03/31/19 4:42 PMResult Value Ref Range Glucose, bedside 115 (H) 65 - 110 MG/DLGLUCOSE, POC Collection Time: 04/01/19 12:49 AMResult Value Ref Range Glucose, bedside 102 65 - 110 MG/DLRENAL FUNCTION PANEL Collection Time: 04/01/19 6:00 AM Result Value Ref Range Sodium 134 (L) 136 - 145 mmol/L Potassium 3.9 3.5 - 5.1 mmol/ L Chloride 97 (L) 98 - 107 mmol/L CO2 36 (H) 21 - 32 mmol/L Anion gap 6 (L) 10 - 20 m mol/L Glucose 278 (H) 74 - 106 mg/dL BUN 12 7 - 18 mg/dL Creatinine 0.48 (L) 0.70 - 1. 30 mg/dL GFR est AA >60 >60 ml/min/1.73m2 GFR est non-AA >60 >60 ml/min/1.73m2 Calcium 10.6 (H) 8.5 - 10.1 mg/dL Phosphorus 2.4 (L) 2.5 - 4.9 mg/dL Albumin 2.5 (L) 3.5 - 4. 7 g/dLMAGNESIUM Collection Time: 04/01/19 6:00 AMResult Value Ref Range Magnesium 1.9 1.6 - 2.6 mg/dLCBC WITH AUTOMATED DIFF Collection Time: 04/01/19 6:00 AMResult Value Ref Range WBC 22.1 (H) 4.8 - 10.6 K/uL RBC 4.22 (L) 4.70 - 6.00 M/uL HGB 13.1 ( L) 14.0 - 18.0 g/dL HCT 40.5 (L) 42.0 - 52.0 % MCV 96.0 (H) 81.0 - 94.0 FL MCH 31.0 2 7.0 - 35.0 PG MCHC 32.3 30.7 - 37.3 g/dL RDW 16.4 (H) 11.5 - 14.0 % PLATELET 315 130 - 400 K/uL MPV 9.8 9.2 - 11.8 FL NRBC 0.0 0 PER 100 WBC ABSOLUTE NRBC 0.00 0.0 - 0.0 1 K/uL NEUTROPHILS 89 (H) 48.0 - 72.0 % LYMPHOCYTES 6 (L) 18.0 - 40.0 % MONOCYTE S 4 2.0 - 12.0 % EOSINOPHILS 0 0.0 - 7.0 % BASOPHILS 0 0.0 - 3.0 % IMMATURE GRANULO CYTES 1 (H) 0 - 0.5 % ABS. NEUTROPHILS 19.6 (H) 2.3 - 7.6 K/UL ABS. LYMPHOCYTES 1.4 0.9 - 4.2 K/UL ABS. MONOCYTES 0.9 0.1 - 1.7 K/UL ABS. EOSINOPHILS 0.0 0.0 - 1.0 K/UL ABS. BASOPHILS 0.0 0.0 - 0.4 K/UL ABS. IMM. GRANS. 0.2 (H) 0.0 - 0.17 K/UL DF AUTOMA TEDGLUCOSE, POC Collection Time: 04/01/19 6:30 AMResult Value Ref Range Glucose, b edside 124 (H) 65 - 110 MG/DLBLOOD GAS, ARTERIAL Collection Time: 04/01/19 10:12 AMResult Value Ref Range pH 7.50 (H) 7.35 - 7.45 PCO2 48 32 - 48 mmHg PO2 76 (L) 83 - 108 mmHg CO2, TOTAL 39 (H) 19 - 24 mmol/L BICARBONATE 37 (H) 21 - 28 mmol/L O2 SAT 97 94 - 98 % BASE EXCESS 12.4 (H) 0 - 3 mmol/L SITE RIGHT BRACHIAL DEVICE VENTUR I MASK O2 FLOW 8 L/min FIO2 40.0 % Performed by [id number]:Ir Picc Insert Wo Port O lani 5 Years Wo ImgResult Date: 04/01/2019IR PICC INSERT WO PORT OVER 5 YEARS WO IMG CLINICAL INDICATION PROVIDED.:"midline." Medical necessity for vascular access. P ROCEDURE: After beinginformed of the risks, benefits, potential alternatives to the procedure theinformed consent was obtained. The patient was placed on the table the supineposition. The right upper extremity was prepped and draped in the normal sterile fashion. Ultrasound interrogation was performed of the right upper extremity.I mages were obtained. A location was chosen over the right brachial vein abovethe an tecubital fossa. Lidocaine solution was used to anesthetize the scan.Access was gaine d under ultrasound guidance using a 21-gauge thin-walled needle.A 0.018 a wire was ad vanced under fluoroscopic guidance into the right axillaryvein. The needle was excha nged over a wire for the midline dilator and sheath.The dilator and wire were removed leaving the sheath in situ. Through the sheatha 5 Congolese double-lumen 20 cm midl ine catheter was placed. The peel-away sheathwas removed. The catheter was sewn into position using 2-0 silk sutures. Thepatient tolerated the procedure. Ther e were no complications at the time of theprocedure. FINDINGS: Ultrasound inter rogation revealed a widely patent brachialvein above the antecubital fossa . A 5 Congolese dual-lumen 20 cm midline catheterwas placed. The tip was placed i n good position over the right axillary vein.IMPRESSION: 5 Congolese dual-lumen mid line catheter placed with tip positioned overthe right axillary vein.Impression:A ctive Hospital Problems Diagnosis Date Noted Acute hypoxemic respiratory failure (HCC ) 03/25/2019 Hyponatremia, correctedPlan:Continue IV antibiotics, v anco 1 gram q 12hvanco T in am ivf Ns at 50 ml/mMinimal free waterReplace [id number] in [facility] 2018 Name Value Range Interpretation Code Description Data [facility] rce(s) Supporting Document(s ) ID Date Data Source [id number] 04/01/2019 10:12:55 AM EST [facility] Name Value Range Interpretation Description Data Sup porting Code Source(s) Document(s ) pH of Arterial 7.50 7.35-7.4 Above high normal [facility] blood 5 [facility] Carbon dioxide 48 mmHg 32-48 [facility] [Partial Taoist pressure] in Hospital Arterial blood Oxygen 76 mmHg 83-108 Below low normal [facility] [Partial Taoist pressure] in Hospital Arterial blood Carbon 39 19-24 Above high normal [facility] dioxide, total mmol/L [facility] [Moles/volume] Hospital in Arterial blood Bicarbonate 37 21-28 Above high normal [facility] [Moles/volume] mmol/L [facility] in Arterial Hospital blood Oxygen 97 % 94-98 [facility] saturation in Taoist Blood [facility] Base excess in 12.4 0-3 Above high normal [facility] Arterial blood mmol/L Taoist by calculation Hospital Body site [facility] VENTURI MASK8 Oxygen/Inspired gas Respiratory system 40.0 % [facility] --on ventilator Service comment [id number] [facility] ID Date Data Source [id number] 04/01/2019 09:35:23 AM EST [facility] IR PICC INSERT WO PORT OVER 5 YEARS WO I MGCLINICAL INDICATION PROVIDED.: "midline."Medical necessity for vascular access.PROCEDURE:After being informed of the risks, benefits, potential alternatives to theprocedure the informed consent was obtained.The patient was placed on the t able the supine position. The right upperextremity was prepped and draped in the normal sterile fashion. Ultrasoundinterrogation was performed of the right upper extremity. Images were obtained. A location was chosen over the right brachial vein above the antecubital fossa.Lidocaine solution was used to ane sthetize the scan. Access was gained underultrasound guidance using a 21-gaug e thin-walled needle. A 0.018 a wire wasadvanced under fluoroscopic guidance into the right axillary vein. The needlewas exchanged over a wire for the midline di lator and sheath. The dilator andwire were removed leaving the sheath in situ. Thro ugh the sheath a 5 Frenchdouble-lumen 20 cm midline catheter was placed. The peel-aw ay sheath wasremoved. The catheter was sewn into position using 2-0 silk sutures. Th e patienttolerated the procedure. There were no complications at the time of theproce dure.FINDINGS:Ultrasound interrogation revealed a widely patent brachial vein a [place] theantecubital fossa. A 5 Congolese dual-lumen 20 cm midline catheter was pl aced. Thetip was placed in good position over the right axillary vein.IMPRESSION: 5 Fr ench dual-lumen midline catheter placed with tip positioned overthe right axillary ve in. Signing date/time: 04/01/2019 9:35 AMSigned by: ELIZABETH FARR Name Value Range Interpretation Code Description Data [facility] rce(s) Supporting Document(s ) ID Date Data Source [id number] 04/01/2019 09:10:53 AM [facility] Patient brought to IR for insertion of M id line . Consent done by PMD forMEDICAL necessary. Dr Green attends and pro cedure done without incident.DSD applied and transferred to floor via bedPOWER [place] eLOT [id number] Name Value Range Interpretation Code Description Data [facility] ) ID Date Data Source [id number] 04/01/2019 07:02:33 AM [facility] Bedside and Verbal shift change report carol Clark Rn (oncoming nurse) byMontserrat pitts (offgoing nurse). Report i ncluded the following information SBAR,Kardex, MAR, Recent Results and Car diac Rhythm nsr. Name Value Range Interpretation Code Description Data [facility] Supporting Document(s ) ID Date Data Source [id number] 04/01/2019 06:43:10 AM [facility] Name Value Range Interpretation Description Data Sup porting Code Source(s) Document(s ) Glucose 124 MG/DL 65-110 Above high normal [facility] [Mass/volume] Taoist in Blood by [facility] Automated test strip ID Date Data Source [id number] 04/01/2019 06:07:33 AM [facility] Check the patient with NANCY zayas For any skin breakdown while using theBiPAP mask. RN aware of two finger tech to mas k tightness,and use of mask clipsfor any interventions Name Value Range Interpretation Code Description Data [facility] rce(s) Supporting Document(s ) ID Date Data Source [id number] 04/01/2019 06:52:53 AM [facility] Name Value Range Interpretation Description Data Sup porting Code Source(s) Document(s ) Sodium 134 136-145 Below low normal [facility] [Moles/volume] mmol/L Taoist in Serum or Hospital Plasma Potassium 3.9 3.5-5.1 [facility] [Moles/volume] mmol/L Taoist in Serum or Hospital Plasma Chloride 97 98-107 Below low normal [facility] [Moles/volume] mmol/L Taoist in Serum or Hospital Plasma Carbon 36 21-32 Above high normal [facility] dioxide, total mmol/L [facility] [Moles/volume] Hospital in Serum or Plasma Anion gap in 6 mmol/L 10-20 Below low normal [facility] Serum or Taoist Plasma Hospital Glucose 278 74-106 Above high normal [facility] [Mass/volume] mg/dL Taoist in Serum or Hospital Plasma Urea nitrogen 12 mg/dL 7-18 [facility] [Mass/volume] Taoist in Serum or Hospital Plasma Creatinine 0.48 0.70-1.3 Below low normal [facility] [Mass/volume] mg/dL 0 Taoist in Serum or Hospital Plasma Glomerular >60 [facility] filtration Taoist rate/1.73 sq M Hospital predicted among blacks [Volume Rate/Area] in Serum or Plasma by Creatinine-bas ed formula (MDRD) Glomerular >60 [facility] filtration Taoist rate/1.73 sq M Hospital predicted among non-blacks [Volume Rate/Area] in Serum or Plasma by Creatinine-bas ed formula (MDRD) Calcium 10.6 8.5-10.1 Above high normal [facility] [Mass/volume] mg/dL Taoist in Serum or Hospital Plasma Phosphate 2.4 2.5-4.9 Below low normal [facility] [Mass/volume] mg/dL Taoist in Serum or Hospital Plasma Albumin 2.5 g/dL 3.5-4.7 Below low normal [facility] [Mass/volume] Taoist in Serum or Hospital Plasma by Bromocresol purple (BCP) dye binding method ID Date Data Source [id number] 04/01/2019 06:52:53 AM EST [facility] Name Value Range Interpretation Description Data Sup porting Code Source(s) Document(s ) Magnesium 1.9 mg/dL 1.6-2.6 [facility] [Mass/volume] [facility] in Serum or Hospital Plasma ID Date Data Source [id number] 04/01/2019 06:44:45 AM EST [facility] Name Value Range Interpretation Description Data Sup porting Code Source(s) Document(s ) Leukocytes 22.1 4.8-10.6 Above high normal [facility] - [#/volume] in K/uL [facility] Blood by [facility] Automated count Hospital Erythrocytes 4.22 4.70-6.0 Below low normal [facility] - [#/volume] in M/uL 0 [facility] Blood by [facility] Autom[facility] count Hospital Hemoglobin 13.1 14.0-18. Below low normal [facility] - [Mass/volume] in g/dL 0 Good Blood [facility] Hematocrit 40.5 % 42.0-52. Below low normal [facility] - [Volume 0 Good Fraction] of [facility] Blood by Hospital Automated count Erythrocyte mean 96.0 FL 81.0-94. Above high normal [facility] - corpuscular 0 Good volume [Entitic Taoist volume] by Hospital Automated count Erythrocyte mean 31.0 PG 27.0-35. [facility] - corpuscular 0 Good hemoglobin Taoist [Entitic mass] [facility] by Automated count Erythrocyte mean 32.3 30.7-37. [facility] - corpuscular g/dL 3 Good hemoglobin [facility] [Mass/volume] by Automated count Erythrocyte 16.4 % 11.5-14. Above high normal [facility] - distribution 0 Good width [Ratio] by [facility] Automated count Hospital Platelets 315 K/uL 130-400 [facility] - [#/volume] in Good Blood by [facility] Automated count Hospital Platelet mean 9.8 FL 9.2-11.8 [facility] - volume [Entitic Good volume] in Blood [facility] by Automated Hospital count Nucleated 0.0 PER 0 [facility] - erythrocytes/100 100 WBC Good leukocytes [facility]ist [Ratio] in Blood Hospital Nucleated 0.00 0.0-0.01 [facility] - erythrocytes K/uL Good [#/volume] in Taoist Blood [facility] Segmented 89 % 48.0-72. Above high normal [facility] - neutrophils/100 0 [facility] leukocytes in [facility] Lymphocytes/100 6 % 18.0-40. Below low normal [facility] - leukocytes in 0 [facility] Monocytes/100 4 % 2.0-12.0 [facility] - leukocytes in [facility] Eosinophils/100 0 % 0.0-7.0 [facility] - leukocytes in [facility] Basophils/100 0 % 0.0-3.0 [facility] - leukocytes in [facility] Immature 1 % 0-0.5 Above high normal [facility] - granulocytes/100 [facility] leukocytes in [facility] by [facility] Automated count Segmented 19.6 2.3-7.6 Above high normal [facility] - neutrophils K/UL Good [#/volume] in [facility] Lymphocytes 1.4 K/UL 0.9-4.2 [facility] - [#/volume] in [facility] Monocytes 0.9 K/UL 0.1-1.7 [facility] - [#/volume] in [facility] Eosinophils 0.0 K/UL 0.0-1.0 [facility] - [#/volume] in [facility] Basophils 0.0 K/UL 0.0-0.4 [facility] - [#/volume] in [facility] Immature 0.2 K/UL 0.0-0.17 Above high normal [facility] - granulocytes Good [#/volume] in [facility] Automated count Differential [facility] - cell count [facility] ID Date Data Source [id number] 04/01/2019 04:16:23 AM EST [facility] Pt placed on bipap tolerating well o2 sa t 92% Name Value Range Interpretation Code Description Data Harriett rce(s) Supporting Document(s ) ID Date Data Source [id number] 04/01/2019 03:14:02 AM EST [facility] Npo feedings on hold per order Name Value Range Interpretation Code Description Data Harriett rce(s) Supporting Document(s ) ID Date Data Source [id number] 04/01/2019 12:50:23 AM EST [facility] Problem: Pressure Injury - Risk ofGoal: *Prevention of pressure injuryDescriptionDocument Butch Scale a nd appropriate interventions in the flowsheet.Outcome: Progressing Towards G oalNote: Pressure Injury Interventions:Sensory Interventions: Ass ess changes in LOC, Avoid rigorous massage over bonyprominences, Check visual cues for pain, Float heels, Pressure redistributionbed/mattress (bed type), K eep linens dry and wrinkle-freeMoisture Interventions: Check for incontinence Q2 hours and as needed,Internal/External urinary devices, Maintain skin hydration (lotion/cream)Activity Interventions: Pressure redistribution bed/mattress(bed type)Mobility Interventions: Pressure redistribution bed/mattress (bed type), HOB 30degrees or less, Turn and reposition approx. every two hours(pillow and wedge s)Nutrition Interventions: Document food/fluid/supplement intake, Discussnut ritional consult with providerFriction and Shear Interventions: HOB 30 degrees or l ess, Foamdressings/transparent film/skin sealantsProblem: Patient Education: Go t o Patient Education ActivityGoal: Patient/Family EducationOutcome: Progres sing Towards GoalProblem: Falls - Risk ofGoal: *Absence of FallsDescriptionDocu ment Samra Fall Risk and appropriate interventions in the flowsheet.Outcome: Progressing Towards GoalNote: Fall Risk Interventions:Mentation Interventions: A dequate sleep, hydration, pain control, Bed/chair exitalarm, More frequent round ing, Toileting roundsMedication Interventions: Bed/chair exit alarmElimi nation Interventions: Bed/chair exit alarmProblem: Patient Education: Go to P atient Education ActivityGoal: Patient/Family EducationOutcome: Progressing Towards Go alProblem: PainGoal: *Control of PainOutcome: Progressing Towards GoalProblem: Breathi ng Pattern - IneffectiveGoal: *Absence of hypoxiaOutcome: Progressing Towards Goal Goal: *Use of effective breathing techniquesOutcome: Progressing Towards G oalGoal: *PALLIATIVE CARE: Alleviation of DyspneaOutcome: Progressing Towards Goal Problem: Patient Education: Go to Patient Education ActivityGoal: Patient/Family E ducationOutcome: Progressing Towards GoalProblem: Seizure Disorder (Adult)Goa l: *STG: Remains free of seizure activityOutcome: Progressing Towards Goa lGoal: *STG: Maintains lab values within therapeutic rangeOutcome: Progressing To wards GoalGoal: *STG/LTG: Complies with medication therapyOutcome: Progressing T owards GoalGoal: *STG: Remains free of injury during seizure activityOutcome: Progress ing Towards GoalGoal: *STG: Remains safe in hospitalOutcome: Progressing Towards Goa lGoal: InterventionsOutcome: Progressing Towards GoalProblem: Patient Education: Go to Patient Education ActivityGoal: Patient/Family EducationOutcome: Progres sing Towards GoalProblem: Nutrition DeficitGoal: *Tolerating enteral feeding DescriptionPt meets >75% of estimated energy and protein needs within 3-7 daysOutcome : Progressing Towards GoalProblem: Non-Violent RestraintsGoal: *Removal fro m restraints as soon as assessed to be safeOutcome: Progressing Towards GoalGoa l: *No harm/injury to patient while restraints in useOutcome: Progressing To wards GoalGoal: *Patient's dignity will be maintainedOutcome: Progressing Towards G oalGoal: *Patient Specific Goal (EDIT GOAL, INSERT TEXT)Outcome: Progressing Towards GoalGoal: Non-violent Restaints:Standard InterventionsOutcome: Progressing Toward s GoalGoal: Non-violent Restraints:Patient InterventionsOutcome: Progressing Toward s GoalGoal: Patient/Family EducationOutcome: Progressing Towards Goal Name Value Range Interpretation Code Description Data Harriett e(s) Supporting Document(s ) ID Date Data Source [id number] 04/01/2019 01:02:21 AM EST [facility] Name Value Range Interpretation Description Data Sup porting Code Source(s) Document(s ) Glucose 102 MG/DL 65-110 [facility] [Mass/volume] Taoist in Blood by [facility] Automated test strip ID Date Data Source [id number] 03/31/2019 08:00:14 PM EST [facility] Bedside and Verbal shift change report carol Garcia RN (oncoming nurse) Israel Alamo RN (offgoing nurse). Report included the following information SBAR, Kardex,Intake/Output, MAR, Recent Results and Cardiac Rhythm S matthew, NSR. Name Value Range Interpretation Code Description Data Harriett rce(s) Supporting Document(s ) ID Date Data Source [id number] 03/31/2019 06:52:37 PM EST [facility] GI PROGRESS NOTENAME: Evelio Shukla hbeinDOB: 1950MRN: [id number]:Patient sent to endo f or replacement of a new PEG/PEJ. He has a broken feedingtube cap and it can not be repaired but needs to be replaced. The procedure wascancelled by anesthesia who was concerned by the low O2 saturation on pulseoximetry. Patient has been seen by pulmonary who has cleared him for PEGreplacement.Objective:VITALS:Last 24h rs VS reviewed since prior progress note. Most recent are:Visit VitalsBP 125/73 (B P 1 Location: Left arm, BP Patient Position: At rest;Head of bedelevated (Comment deg phillip))Pulse 85Temp 98.2 F (36.8 C)Resp 24Wt 52.6 kg (116 lb)SpO2 92%BMI 21.22 kg/m I ntake/Output Summary (Last 24 hours) at 03/31/2019 1845Last data filed at 2018 1758Gross per 24 hourIntake 350 mlOutput -Net 350 mlPHYSICAL EXAM:Lungs: CTA Bilaterally.Heart: Regular rhythm,Abdomen: Soft, Non distended, Non tender. (+)Bowel sounds, no HSMLab Data Reviewed:Recent Labs 03/30WBC 11.5* 10.5HGB 12.9* 14.4HCT 39.7* 42.5PLT 296 346Recent Labs 03/30/1905NA 136 134*K 4.0 4.8CL 98 95*CO2 39* 34*BUN 17 12CREA 0.41* 0.45*GLU 84 9 9PHOS 3.1 3.1CA 10.7* 10.5*Recent Labs 03/30/19059ALB 2.4* 2.9* Pati ent Active Problem ListDiagnosis Code Parae sophageal hiatal hernia K44.9 COPD (chronic obstructive pulmonary disease) ([facility]) J44 .9 Acute respiratory distress R06.03 Pneumonia J18.9 COPD exacerbation ([facility]) J44.1 Sepsis due to undetermined organism ([facility]) A41.9 Generalized anxiety disorde r F41.1 Acute respiratory failure with hypoxia ([facility]) J96.01 Pneumonia involvin g right lung J18.9 Hyponatremia E87.1 SOB (shortness of breath) R06.02 Pressure i njury of right heel, stage [address]) L89.612 Leg wound, right, initial encounter S81. 801A Acute hypoxemic respiratory failure ([facility]) J96.01Assessment: Fractured PEG c ap which requires replacement of the PEJ part of the feedingtube. Procedure was cance lled by anesthesia because of low O2 saturationPlan: Re attempt procedure in the AM after being seen and ok'd by pulmonarySigned By: Nikos Martinez MD 1 06/01/2018 6:45 PM Name Value Range Interpretation Code Description Data Harriett rce(s) Supporting Document(s ) ID Date Data Source [id number] 03/31/2019 05:36:26 PM [facility] Progress NoteMID-[facility] ,[facility].Krystian Monae MD., F.C.C.P.Stella Hamilton MD., F.C.C.P. [address] [place] [id number] [place] [address] [phone]: Evelio Carlin Sex: male DOA: 03/25/2019D ate of : 1950 Age: 68 y.o. LOS: LOS: 6 daysPATIENT SENT MAIN K WITHOUT REPLACING FRACTURED P E G TBE BY ANAESTHESIAAND G I CONCERN OF ACUTE RESPIRATORY FAILURE .HE HAVE SEVERE COPD , HE IS CO2 RETAINER BUT MORE A WAKE AND ALERT Evelio Carlin is a 68 y.o. male with history of COPD, GERD,hyp erparathyroidism, Parkinsonism, pneumonia, schizophrenia, and pulmonaryemboli with a surgical history of gastrostomy who presents to the EmergencyDepartment via emergency medical services sent in from long-term for hypoxiaand [facility] pne [facility]. The patient has multiple incidences of pneumonia in thepast. The patient is nonverbal at baseline and cannot provide any history ofreview of systems at the time. PATIENT HAVE SEVERE CEREBRAL PALSY , MENTAL RETARDATION AND IS NON VERBAL .N O HX CANNOT BE CONFIRMED FROM PATIENT , CHART IS REVIEWED.MULTIPLE ADMISSIONS F OR ASPIRATION PNEUMONIA , HE IS BED RIDDEN . PATIENTT NOW IS ON BIPAP SUPPORT SP O2 = 96% ON FIO2 65% .PATIENT IS SLIGHTLY MORE AWAKE TODAY AND IS COMFORTABLE SPO2 0N 4 L N C = 92 % HAVE FRACTURED SEGMENT OF PEG TUBE NEAR INSERTION NEEDS REPLACEMENT . 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 Social History Tobacco Use Smoking status: Never Smoker Smokeless tobacco: Never UsedSubstance Use Topics Alcohol use: No History reviewed. No pertinent family history. No Known Aller gies Prior to Admission medicationsMedication Sig Start Date End Date Taking? Authorizing Providerheparin sodium,porcine (HEPARIN, PORCINE,) 5,000 unit/mL injection 1 mL bySubCUTAneous route every twelve (12) hours every twelve (12 ) hours. 03/17/19 Mili Hills DOmultivitamin (MULTI-DELYN, WELLESSE) l iqd 5 mL by Per G Tube route daily.03/17/19 Mili Hills DOacetaminophen (TYLEN OL) 32MG/ML soln solution Take 20.3 mL by mouth every four(4) hours as needed for Pain or Fever. 03/17/19 Mili Hills DOvalproic acid, as sodium salt, (DEPAKE NE) 250 mg/5 mL (5 mL) soln oral [id number] mg by Per G Tube route every twelve (12) hours. Provider, Historicalacetylcysteine (MUCOMYST) 100 mg/mL (10 %) nebulizer solution Take 4 mL byinhalation two (2) times a day. Provider, Edieclorazepate (TRANXENE) 3.75 mg tablet 1 Tab by Per G Tube route nightly. MaxDaily Amount: 3.75 mg. 12/30/18 Mili Hills, DOcinacalcet (SENSIPA R) 30 mg tablet Take 2 Tabs by mouth daily.Patient taking differently: 30 mg daily. Via G tube 12/30/18 Mili HillsDOlamoTRIgine (LAMICTAL) 25 mg t ablet 2 Tabs by Per G Tube route two (2) times aday. 12/30/18 Mili Hills, DOalbuterol-ipratropium (DUO-NEB) 2.5 mg-0.5 mg/3 ml nebu 3 mL by Nebulizationroute e very six (6) hours. Every 6 hours while awakePatient taking differently: 3 mL by Nebulization route every four (4) hours asneeded. Every 6 hours while awake 12/30 Mili Hills DObudesonide (PULMICORT) 0.5 mg/2 mL nbsp 2 mL by Neb ulization route two (2) timesa day. 12/30/18 Mili Hills DO REVIEW OF SYSTEMS : SEVERE MENTAL RETARDATION , CANNOT DO ROS .General: negative for fever, chill s, sweats, weaknessEyes: negative for blurred vision, eye pain, loss of vision, diplop iaEar Nose and Throat: negative for rhinorrhea, pharyngitis, otalgia, tinnit us,speech or swallowing difficultiesRespiratory: negative for c ough, sputum production, SOB, wheezing, DAVALOS,pleuritic painCardiology: negative for chest pain, palpitations, orthopnea, PND, edema,syncopeGastrointestinal: negative for abdominal pain, N/V, dysphagia, change in bowelhabits, bleedingGenitourinary: nega tive for frequency, urgency, dysuria, hematuria, incontinenceMuskuloskeletal : negative for arthralgia, myalgiaHematology: negative for easy bruising, bleeding, ly mphadenopathyDermatological: negative for rash, ulceration, mole change, new lesio nEndocrine: negative for hot flashes or polydipsiaNeurological: negative for hea dache, dizziness, confusion, focal weakness,paresthesia, memory loss, gait disturbancePsychological: negative for anxiety, depression, agitation Objecti ve:Vital Signs:Patient Vitals for the past 24 hrs: BP Temp Pulse Resp SpO2 Xbbnac2003/31 1640 125/73 98.2 F (36.8 C) 85 24 92 % -03/31/19 1206 122/90 - 89 24 90 % -03/15 10/31 0934 - - - - 95 % -03/31/19 0724 - - - - - 52.6 kg (116 lb)03/31/19 0719 163/66 9 6 F (35.6 C) (!) 51 22 93 % -03/31/19 0207 - - - - 95 % -03/31/19 0041 131/51 96.3 F (35.7 C) (!) 54 18 95 % -03/30/19 1945 108/84 98.2 F (36.8 C) 70 18 93 % -Pul se OX:SpO2 Readings from Last 6 Encounters:03/31/19 92%03/17/19 92%02/19 96%02/18/19 92%01/24/19 93%12/30/18 96%@LASTSAO2(6)@Physical Exam:ON BIPAP H E IS COMFORTABLE, MORE AWAKE , CONFUSED. General: Alert, cooperative, no distr ess, appears stated age. Head: Normocephalic, without obvious abnormali ty, atraumatic. Eyes: Conjunctivae/corneas clear. PERRL, EOMs intact. Nose: Nares normal. No drainage or sinus tenderness Thr oat: Lips, mucosa, and tongue normal Neck: Supple, symmetrical, trachea midline, no adenopathy,thyroid: no enlargement/tenderness/nodules, no carot id bruit and no JVD. Lungs: IMPROVED AIR EXCHANGE IN BOTH LUNGS t o auscultationbilaterally. Chest Wall: No tenderness or deformity. Heart : Regular rate and rhythm, S1, S2 normal, no murmur, click,rub or gallop. Abdom en: Soft, non-tender. Bowel sounds normal. No masses, No organomegaly. Extremitie s: Extremities normal, atraumatic, no cyanosis or edema. Pulses: 4+ bilaterally. Skin: Skin color, texture, turgor normal. No rashes or les ions. Neurologic: CNII-XII intact. No focal motor or sensory deficit.Intake an d Output:Last three shifts: 03/29 1901 - 03/31 0700In: 550Out: 4350 [Urine:4350]L ab Results:Recent Results (from the past 24 hour(s))GLUCOSE, POC Collection Time: 12:40 AMResult Value Ref Range Glucose, bedside 131 (H) 65 - 110 MG/DLR ENAL FUNCTION PANEL Collection Time: 03/31/19 5:10 AMResult Value Ref Range Sodium 13 6 136 - 145 mmol/L Potassium 4.0 3.5 - 5.1 mmol/L Chloride 98 98 - 107 mmol/L CO2 3 9 (H) 21 - 32 mmol/L Anion gap 4 (L) 10 - 20 mmol/L Glucose 84 74 - 106 mg/dL BUN 17 7 - 18 mg/dL Creatinine 0.41 (L) 0.70 - 1.30 mg/dL GFR est AA >60 >60 ml/min/1.73m2 G FR est non-AA >60 >60 ml/min/1.73m2 Calcium 10.7 (H) 8.5 - 10.1 mg/dL Phosphorus 3.1 2.5 - 4.9 mg/dL Albumin 2.4 (L) 3.5 - 4.7 g/dLMAGNESIUM Collection Time: 03/31/19 5:10 AMResult Value Ref Range Magnesium 2.3 1.6 - 2.6 mg/dLCBC WITH AUTOMATED DIFF C ollection Time: 03/31/19 5:10 AMResult Value Ref Range WBC 11.5 (H) 4.8 - 10.6 K/uL R BC 4.17 (L) 4.70 - 6.00 M/uL HGB 12.9 (L) 14.0 - 18.0 g/dL HCT 39.7 (L) 42.0 - 52. 0 % MCV 95.2 (H) 81.0 - 94.0 FL MCH 30.9 27.0 - 35.0 PG MCHC 32.5 30.7 - 37.3 g/dL RDW 16.4 (H) 11.5 - 14.0 % PLATELET 296 130 - 400 K/uL MPV 9.8 9.2 - 11.8 FL NRBC 0.0 0 PER 100 WBC ABSOLUTE NRBC 0.00 0.0 - 0.01 K/uL NEUTROPHILS 77 (H) 48.0 - 72.0 % LY MPHOCYTES 16 (L) 18.0 - 40.0 % MONOCYTES 6 2.0 - 12.0 % EOSINOPHILS 0 0.0 - 7.0 % B ASOPHILS 0 0.0 - 3.0 % IMMATURE GRANULOCYTES 1 (H) 0 - 0.5 % ABS. NEUTROPHILS 8.9 (H) 2.3 - 7.6 K/UL ABS. LYMPHOCYTES 1.8 0.9 - 4.2 K/UL ABS. MONOCYTES 0.7 0.1 - 1.7 K/ UL ABS. EOSINOPHILS 0.0 0.0 - 1.0 K/UL ABS. BASOPHILS 0.0 0.0 - 0.4 K/UL ABS. IMM. G RANS. 0.1 0.0 - 0.17 K/UL DF AUTOMATEDGLUCOSE, POC Collection Time: 1 06/01/18 6:19 AMResult Value Ref Range Glucose, bedside 82 65 - 110 MG/DLPROTHR OMBIN TIME + INR Collection Time: 03/31/19 10:15 AMResult Value Ref Range Prothromb in time 10.7 9.4 - 11.1 sec INR 1.1 0.8 - 1.2GLUCOSE, POC Collection Time: 9 4:42 PMResult Value Ref Range Glucose, bedside 115 (H) 65 - 110 MG/DLABG:No res ults for input(s): PH, PCO2, PO2, HCO3, FIO2 in the last 72 hours.Recent Glucose Resu lts:Lab ResultsComponent Value Date/Time GLU 84 03/31/2019 05:10 AM GLUCPOC 115 (H) 1 06/01/2018 04:42 PM GLUCPOC 82 03/31/2019 06:19 AM GLUCPOC 131 (H) 03/31/2019 12:4 0 AM@LABAPCYTOINTERPRETATION@CULTURESAll Micro Results Procedure Component Value Units Date/Time CULTURE, BLOOD [[id number]] Collected: 03/25/19 0255 Order Status: Completed Specimen: Blood Updated: 03/30/19620 Special Requests: NO SPEC IAL REQUESTS Culture result: NO GROWTH 5 DAYS CULTURE, BLOOD [[id number]] Collecte d: 03/25/19309 Order Status: Completed Specimen: Blood Updated: 03/30/19620 Special Requests: NO SPECIAL REQUESTS Culture result: NO GROWTH 5 DAYSImages:@ IMAGESENCORD@Ct Chest Wo ContResult Date: 03/14/2019History: Respiratory difficult y. FINDINGS: CT scanning of the chest wasperformed helically from lung apices to the upper abdomen without intravenouscontrast dural. Sagittal and coronal reconstructed images are submitted.Scanning was performed utilizi ng dose lowering techniques and is compared to theprior study of 01/15/2019. Evaluati on of thoracic vascular structures is limitedwithout intravenous contrast mate rial. There is, however, no definite CTevidence of dissection or focal aneury smal dilatation. Some peripheralcalcification is noted. There is no evidence of any pa thologically enlargedlymph node within the visualized portions of the mediastinum o r axillae. Somenonpathologically enlarged lymph nodes are seen. Again noted is angel vation of theleft hemidiaphragm. A left small pleural effusion is noted as well asatel ectatic change at the left lung base. Patchy opacity at the right lung baseis compati ble with a right basilar infiltrate. There is some patchy opacitywithin the right midd le lobe as well. The right basal infiltrate is greater insize than that seen previou sly. The pleural effusion is smaller. The rightmiddle lobe infiltrate is similar. Limited evaluation of upper abdominalstructures reveals a tube withi n the stomach directed toward the duodenum.Diffuse hypertrophic degenerati ve changes are noted of the thoracic spine. Thereis again noted to be shift of media stinal structures to the right.IMPRESSION: Worsening right lower lobe infiltrate. S light worsening of the rightmiddle lobe infiltrate. Improved left lung.Xr Chest PortResult Date: 03/25/2019CHEST one view HISTORY: Fever. Reflux. Gastrostomy. COM PARISON: 03/11/2019.There is a poor inspiratory effort which compromises thi s interpretation. Arepeat study is suggested. There is discoid atelectasis and/or lef t lower lobeinfiltrate.There is no gross evidence of congestion, other infiltrate s,effusions or pneumothorax.IMPRESSION: Possible left lower lobe infiltrate. Poo r inspiratory effort.Xr Chest PortResult Date: 03/11/2019CHEST one view HISTORY: Fever. COPD. Reflux. COMPARISON: 02/12/2019. Anadditional view was obtained. A tubula r structure overlies the stomach andmidabdomen with some gastric distenti on and elevation of the left hemidiaphragm.There is a poor inspirator y effort which compromises this interpretation. Arepeat study is suggest ed. .There is no gross evidence of congestion,infiltrates, effusions or pne umothorax. Old rib fractures are noted.IMPRESSION: No evidence of acute c ardiopulmonary disease. Poor inspiratoryeffort. Gastric distention.Me dications:Current Facility-Administered MedicationsMedication Dose Route Frequen cy dextrose 5 % - 0.45% NaCl infusion 50 mL/hr IntraVENous CONTINUOUS methylPRED NISolone (PF) (SOLU-MEDROL) injection 40 mg 40 mg IntraVENous Q8H acetylcysteine (M UCOMYST) 100 mg/mL (10 %) nebulizer solution 400 mg 4 mLInhalation BID RT sodium ch loride (NS) flush 5-10 mL 5-10 mL IntraVENous PRN acetaminophen (TYLENOL) solution 650 mg 650 mg Per G Tube Q4H PRN cinacalcet (SENSIPAR) tablet 60 mg 60 m g Oral DAILY [Held by provider] heparin (porcine) injection 5,000 Units 5,000 U nitsSubCUTAneous Q12H lamoTRIgine (LaMICtal) tablet 50 mg 50 mg Per G Tube BID valp roic acid (as sodium salt) (DEPAKENE) 250 mg/5 mL (5 mL) oral solution 750mg 750 mg Per G Tube Q12H multivit-folic acid-herbal 275 (WELLESSE PLUS) oral liq uid 30 mL 30 mL Per GTube DAILY ALPRAZolam (XANAX) tablet 0.25 mg 0.25 mg Per G Tu be QPM cefepime (MAXIPIME) 1 g in 0.9% sodium chloride (MBP/ADV) 50 mL MBP 1 g IntraVENous Q8H albuterol-ipratropium (DUO-NEB) 2.5 MG-0.5 MG/3 ML 3 mL Nebul ization Q6H RT vancomycin (VANCOCIN) 1,000 mg in 0.9% sodium chloride 250 mL IVPB 1,000 mgIntraVENous Q12H budesonide (PULMICORT) 500 mcg/2 ml nebulizer suspe nsion 500 mcg NebulizationBID RTActive Problems: Acute hypoxemic respiratory f ailure (HCC) (03/25/2019)Assessment:1. ACUTE HYPERCAPNIC AND HYPOXIC RESPIRATORY FAIL URE2. SEVER COPD 3. ASPIRATION PNEUMONIA 4. SMALL ATELECTASIS L L L5. FRACTURED P E G6. PARKINSONISM7. SEVERE MENTAL RETARDATION8. KYPHOSIS9. HYPOVENTILATIO N Plan: 1.PATIENT IS CLEARED TO HAVE PEG REPLACEMENT / REPAIRED ON BIPAP LEMUS PPORTI P A P/ E P A P = 12/7 CM ,,RATE = 18 , FIO2 50 % , KEEP SPO2 > 92% ,M ILD SEDATION CAN BE GIVEN WITH BIPAP SAFELY .2. F/ U CULTURES 3. AGREE WITH I V CEFEPIME AND VANCOMYCIN4. I V SOLUMEDROL5. DUO NEB QID6. I V FLUIDS 7. CHEST PT 8. SOME IMPROVEMENT NOTED ., CONT SAME TREATMENT9. NEED P EG / J T UBE FIXATION Krystian Monae MD F.C.C.P.March 31, 20195:21 PM Name Value Range Interpretation Code Description Data Harriett rce(s) Supporting Document(s ) ID Date Data Source [id number] 03/31/2019 05:00:36 PM EST [facility] Name Value Range Interpretation Description Data Sup porting Code Source(s) Document(s ) Glucose 115 MG/DL 65-110 Above high normal [facility] [Mass/volume] Taoist in Blood by Hospital Automated test strip ID Date Data Source [id number] 03/31/2019 03:05:23 PM EST [facility] Progress NotePatient: Evelio Carlin Sex: male DOA: 03/25/2019Date of : 1950 Age: 68 y.o. :[id number]:Reyes Carlin is 68 y.o. male who is wearing venti mask, current O2 SAT 92%. He appea rs comfortable. Awaiting jtube placement for today.Pt has poor venous access. I was informed by the nursing staff that overnightthere were several unsuccessful attempts at placing a peripheral iv catheter. Amid line placement was order ed, which is medically necessary.Seen by general surgery on yesterday for eval of surgical placement of a Jtube.The surgeon is rec placement of PEJ tube rather subject ion the patient tosurgery. The patient is considered a high risk surgical candidat e.He has an occasional cough, but not expectorating.He is s/p EGD with positio keith of jenunal feeding tube and endoclipping on03/26/19Pt with TF leaking and was fo und with crack in the tube.Nursing staff was instructed by santiago weldon to use the side por t. He is sandhya TF.For jtube placement in morning. He has medical history of Dysp hagia, recurrent aspiration pneumonia, s/p g/tconversion to jtube on 02/07/19, hyperlipidemia,hyperparathyroid,unspecif ied,seizure, large hiatal hernia, anxiety disorder, personal history ofpulmonary e mbolus,COPD, GERD, Schizophrenia unspecified, Kyphosis, Parkinsondisease, Severe inte llectual disabilities.and Generalized muscle weakness.As per the long-term transfe r record, the patient was transferred to the EDfor Hypoxia, he was found with O2 SAT 77 % on O2 NC 4 LPM and tachypneic. Hewas later placed on NRBM. Patient has a vivian gged jtube and the long-term hasbeen using the gtube site for feedings and administ ration of medications.Pt was seen at [facility] by fatemeh Shabazz and plans were for jtube pl acement, that wasscheduled for the same day as his hospital admission.The patient i s nonverbal and unable to participate with his history.Patient was admitted with en counter diag of Acute Hypercapneic and Hypoxemicrespiratory failure and aspirat ion pneumonia. 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 Pupils are equalNeck: Supple, symmetrical, no stephanie nopathy, no carotid bruit and no JVD.Lungs: Clear to auscultation bilaterally. No Wheezing or Rhonchi. No rales.Chest wall: No Accessory muscle use.Heart: Regular ra te and rhythm, no murmur, or rub.Abdomen: Positive peg, non-tender. Not distended . Bowel sounds normal. NomassesExtremities: Lower limbs contractures, atraumatic, No cyanosis. No edema. NoclubbingSkin: Warm and dry. No rashes or lesions. Not JaundicedLymph nodes: Cervical, supraclavicular normal.Psych: Not anxio us or agitated.Neurologic: EOMs intact. No facial asymmetry. Non verbal. Generalize d weakness,Alert and Awake.Intake and Output:Current Shift: No intake/output data recorded.Last three shifts: 03/29 1901 - 03/31 0700In: 550Out: 4350 [Urine:4350 ]Lab/Data Reviewed:Recent Days:Recent Labs 03/30/1905WB C 11.5* 10.5 8.4HGB 12.9* 14.4 11.7*HCT 39.7* 42.5 35.8*PLT 296 346 308Recent Labs 03/31/1905NA -- 136 134* 135*K -- 4.0 4.8 3.9CL -- 98 95* 98CO2 -- 39* 34* 35*GLU -- 84 99 121*BUN -- 17 12 12C SHILO -- 0.41* 0.45* 0.33*CA -- 10.7* 10.5* 9.8MG -- 2.3 2.2 2.0PHOS -- 3.1 3.1 2.8ALB -- 2.4* 2.9* 2.4*INR 1.1 -- -- --No results for input(s): PH, PCO2, PO2 , HCO3, FIO2 in the last [address] Chest Wo ContResult Date: 03/14/2019History: Resp iratory difficulty. FINDINGS: CT scanning of the chest wasperformed helically from elham ng apices to the upper abdomen without intravenouscontrast dural. Sagittal and coronal reconstructed images are submitted.Scanning was performed utilizi ng dose lowering techniques and is compared to theprior study of 01/15/2019. Evaluati on of thoracic vascular structures is limitedwithout intravenous contrast mate rial. There is, however, no definite CTevidence of dissection or focal aneury smal dilatation. Some peripheralcalcification is noted. There is no evidence of any pa thologically enlargedlymph node within the visualized portions of the mediastinum o r axillae. Somenonpathologically enlarged lymph nodes are seen. Again noted is angel vation of theleft hemidiaphragm. A left small pleural effusion is noted as well asatel ectatic change at the left lung base. Patchy opacity at the right lung baseis compati ble with a right basilar infiltrate. There is some patchy opacitywithin the right midd le lobe as well. The right basal infiltrate is greater insize than that seen previou sly. The pleural effusion is smaller. The rightmiddle lobe infiltrate is similar. Limited evaluation of upper abdominalstructures reveals a tube withi n the stomach directed toward the duodenum.Diffuse hypertrophic degenerati ve changes are noted of the thoracic spine. Thereis again noted to be shift of media stinal structures to the right.IMPRESSION: Worsening right lower lobe infiltrate. S light worsening of the rightmiddle lobe infiltrate. Improved left lung.Xr Chest PortResult Date: 03/25/2019CHEST one view HISTORY: Fever. Reflux. Gastrostomy. COM PARISON: 03/11/2019.There is a poor inspiratory effort which compromises thi s interpretation. Arepeat study is suggested. There is discoid atelectasis and/or lef t lower lobeinfiltrate.There is no gross evidence of congestion, other infiltrate s,effusions or pneumothorax.IMPRESSION: Possible left lower lobe infiltrate. Poo r inspiratory effort.Xr Chest PortResult Date: 03/11/2019CHEST one view HISTORY: Fever. COPD. Reflux. COMPARISON: 02/12/2019. Anadditional view was obtained. A tubula r structure overlies the stomach andmidabdomen with some gastric distenti on and elevation of the left hemidiaphragm.There is a poor inspirator y effort which compromises this interpretation. Arepeat study is suggest ed. .There is no gross evidence of congestion,infiltrates, effusions or pne umothorax. Old rib fractures are noted.IMPRESSION: No evidence of acute c ardiopulmonary disease. Poor inspiratoryeffort. Gastric distention.Me dications reviewedCurrent Facility-Administered MedicationsMedicat ion Dose Route Frequency dextrose 5 % - 0.45% NaCl infusion 50 mL/hr IntraVENou s CONTINUOUS methylPREDNISolone (PF) (SOLU-MEDROL) injection 40 mg 40 mg Int raVENous Q8H acetylcysteine (MUCOMYST) 100 mg/mL (10 %) nebulizer solution 400 mg 4 mLInhalation BID RT sodium chloride (NS) flush 5-10 mL 5-10 mL IntraVENous PRN acetaminophen (TYLENOL) solution 650 mg 650 mg Per G Tube Q4H PRN cinacalcet (SENSI PAR) tablet 60 mg 60 mg Oral DAILY [Held by provider] heparin (porcine) injection 5, 000 Units 5,000 UnitsSubCUTAneous Q12H lamoTRIgine (LaMICtal) tablet 50 mg 50 mg Per G Tube BID valproic acid (as sodium salt) (DEPAKENE) 250 mg/5 mL (5 mL) oral solution 750mg 750 mg Per G Tube Q12H multivit-folic acid-herbal 275 (WELLESSE PLUS) oral liquid 30 mL 30 mL Per GTube DAILY ALPRAZolam (XANAX) tablet 0.25 mg 0.25 mg Per G Tube QPM cefepime (MAXIPIME) 1 g in 0.9% sodium chloride (MBP/ADV) 50 mL MBP 1 gIntraVENous Q8H albuterol-ipratropium (DUO-NEB) 2.5 MG-0 .5 MG/3 ML 3 mL Nebulization Q6H RT vancomycin (VANCOCIN) 1,000 mg in 0.9% s odium chloride 250 mL IVPB 1,000 mgIntraVENous Q12H budesonide (PULMICOR T) 500 mcg/2 ml nebulizer suspension 500 mcg NebulizationBID RTAssessment/Plan:Hospit al Problems Date Reviewed: 03/31/2019 Codes Class Noted POA Acute hypoxemic re spiratory failure (HCC) ICD-10-CM: J96.01ICD-9-CM: 518.81 03/25/2019 Unkno wnAssessment:Acute Hypercapneic, Hypoxemic Respiratory FailureAspiration PneumoniaC OPDLeukocytosis- trending downwardMalfunctioning jtube; tubing kanika ears to be defectiveDysphagia ( s/p gtube conversion to jtube on 02/07/19)Anxiety DisorderHyperparathyroid Unspecified typeMentally challengedSeizure disorderH yponatremia- stableHypophosphate Plan:Continue IV cefepime and vancomycin per IDVM, PRN BIPAP per pulmonaryAwaiting arrival of new jtubeGI follow upIv stero ids taper per pulmonarynebulizersFollow up culturesMonitor lytesIv fluids while TF on holdConsult to nutritionistPt has poor venous access; mid line placement is med ically necessaryTeofilo Gonzalez 2018Time: 2:46 PM Name Value Range Interpretation Code Description Data Harriett rce(s) Supporting Document(s ) ID Date Data Source [id number] 03/31/2019 02:33:53 PM EST [facility] Relevant ProblemsNo relevant active prob lemsAnesthetic HistoryNo history of anesthetic complicationsReview of System s / Medical HistoryPatient summary reviewed, nursing notes reviewed and pertinent lab s reviewedPulmonaryCOPD Neuro/PsychPsychiatric historyComments: MENTALLY CHALLENGEDPARKINSON'S CardiovascularExercise tolerance: >4 MET SComments: ECHO 2019 - EF 55-60%GI/Hepatic/RenalGERD Endo/Other Ot her FindingsPhysical ExamAirwayMallampati: IITM Distance: 4 - 6 cm CardiovascularRh ythm: regular DentalDentition: Poor dentitionPulmonaryBreath sounds clear to auscultation AbdominalAbdominal exam normal Other FindingsAnesthetic PlanASA: 3Anest hesia type: MACInduction: IntravenousAnesthetic plan and risks dis cussed with: Family, Legal guardian and Healthcarepower of research attorney Name Value Range Interpretation Code Description Data Harriett rce(s) Supporting Document(s ) ID Date Data Source [id number] 03/31/2019 02:12:20 PM [facility] Problem: Nutrition DeficitGoal: *Tolerat ing enteral feedingDescriptionPt meets >75% of estimated energy and protein needs wi thin 3-7 daysOutcome: Not Progressing Towards GoalWhen feasible, suggest Osmolite 1.5 at 30 mL/hr progressing toward goal rate of50 mL/hr (1800 kcal, 75 gm pro, 244 gm CHO, 59 gm fat, 914 mL water) and 100 mLfree water flush q 3 hr if no IVF Name Value Range Interpretation Code Description Data Harriett rce(s) Supporting Document(s ) ID Date Data Source [id number] 03/31/2019 02:01:32 PM [facility] NUTRITIONFollow Up Note/ ConsultSubje ctive: No EN infusing due to issue with current J-tube; pt awaiting new Jtube ov er PEG per GI.Nutrition Rx: Osmolite 1.5 at 45 mL/hr (held)Labs: POC glu 82, 131 Cre at 0.41Medications reviewed. Receiving D5W 1/2 NS at 50 mL/hr, Solu-Medrol.Skin: 1+ LUE, RUE edema, butch score 14Weight: 52.6 kg (down 1.8 kg since initial assessment with no EN infusing)Nutrition Diagnosis: remains the same (Increased protein need s)When feasible, suggest Osmolite 1.5 at 30 mL/hr progressing toward goal rate of50 mL/hr (1800 kcal, 75 gm pro, 244 gm CHO, 59 gm fat, 914 mL water) and 100 mLfree julisa er flush q 3 hr if no IVFWill continue to monitor EN, GI status.Discharge Planning : Pending clinical courseAleroge Correa RD Name Value Range Interpretation Code Description Data Harriett rce(s) Supporting Document(s ) ID Date Data Source [id number] 03/31/2019 01:20:13 PM EST [facility] ID Progress Note03/31/2019Subjective:Betty razo with history of MR,COPD,recurrent aspiration pneumonia,dysphagia s/p pegpl acement was transferred from the long-term for respiratory distress,lowoxygen satur ation of 77% on 4 L nasal canula.Patient is non verbal,more awake today butunable to provide any historyAwake non verbal,unale to provide history, on BIPAPWbc wnlBlood cu lture no growth.AfebrileAwaiting Surgical J tube placement as current on with leak a nd crack in theinlet portObjective:Review of SystemsUnable to provide.Vitals:Patient Vitals for the past 24 hrs: BP Temp Pulse Resp SpO2 Pruofk44/17/19 1206 122/90 - 8 9 24 90 % -03/31/19 0724 - - - - - 52.6 kg (116 lb)03/31/19 0719 163/66 96 F (35.6 C) (!) 51 22 93 % -03/31/19 0207 - - - - 95 % -03/31/19 0041 131/51 96.3 F (35.7 C ) (!) 54 18 95 % -03/30/19 1945 108/84 98.2 F (36.8 C) 70 18 93 % -03/30/19 1523 13 3/82 97.6 F (36.4 C) 76 18 91 % -Tmax: Temp (24hrs), Av F (36.1 C), Min:9 6 F (35.6 C), Max:98.2 F (36.8 C)Physical Exam:General: Awake, nonverbal cooperat britni, no distress, appears stated age.Eyes: Conjunctivae/corneas clear. PERRLNeck: S upple, symmetrical, trachea midline, no adenopathyLungs: Bilateral breath soun ds with basal crackles..Heart: Regular rate and rhythm, S1, S2 normal, no murmurAbdo men: Soft, non-tender. Bowel sounds normal. No masses, Noorganomegaly.peg+Back: N o CVA tenderness.Extremities: Chronic lymphedema, no cyanosisPulses: 2+ and sy mmetric all extremities.Skin: Skin color, texture, turgor normal. No rashes or les ionsCurrent Facility-Administered MedicationsMedication Dose Route Frequen cy dextrose 5 % - 0.45% NaCl infusion 50 mL/hr IntraVENous CONTINUOUS methylPRED NISolone (PF) (SOLU-MEDROL) injection 40 mg 40 mg IntraVENous Q8H acetylcysteine (M UCOMYST) 100 mg/mL (10 %) nebulizer solution 400 mg 4 mLInhalation BID RT sodium ch loride (NS) flush 5-10 mL 5-10 mL IntraVENous PRN acetaminophen (TYLENOL) solution 650 mg 650 mg Per G Tube Q4H PRN cinacalcet (SENSIPAR) tablet 60 mg 60 m g Oral DAILY [Held by provider] heparin (porcine) injection 5,000 Units 5,000 U nitsSubCUTAneous Q12H lamoTRIgine (LaMICtal) tablet 50 mg 50 mg Per G Tube BID valp roic acid (as sodium salt) (DEPAKENE) 250 mg/5 mL (5 mL) oral solution 750mg 750 mg Per G Tube Q12H multivit-folic acid-herbal 275 (WELLESSE PLUS) oral liq uid 30 mL 30 mL Per GTube DAILY ALPRAZolam (XANAX) tablet 0.25 mg 0.25 mg Per G Tu be QPM cefepime (MAXIPIME) 1 g in 0.9% sodium chloride (MBP/ADV) 50 mL MBP 1 g IntraVENous Q8H albuterol-ipratropium (DUO-NEB) 2.5 MG-0.5 MG/3 ML 3 mL Nebul ization Q6H RT vancomycin (VANCOCIN) 1,000 mg in 0.9% sodium chloride 250 mL IVPB 1,000 mgIntraVENous Q12H budesonide (PULMICORT) 500 mcg/2 ml nebulizer suspe nsion 500 mcg NebulizationBID RTLabs:Recent Labs 03/30/190503/29/19 0425WBC 11.5* 10.5 8.4HGB 12.9* 14.4 11.7*PLT 296 346 308BUN 17 12 12CREA 0.41* 0.45* 0.33*Cultures:Lab ResultsComponent Value Date/Time Culture result: NO GROWTH 5 DA YS 03/25/2019 03:10 AM Culture result: NO GROWTH 5 DAYS 03/25/2019 02:55 AM Cultur e result: NO GROWTH 5 DAYS 03/11/2019 04:14 AM Culture result: NO GROWTH 5 DAYS 02/14 04:14 AMRadiology:No results found.Assessment: Recurrent aspiration pneumonia. Acute COPD exacerbation Acute hypercapnic respiratory failure. Dyspha jaydon s/p peg placement.. Atelectasis R/o sepsis. Plan:1. Continue IV cefepime and vancomycinMahlet Aquiles Gomezsenait PM Name Value Range Interpretation Code Description Data Harriett rce(s) Supporting Document(s ) ID Date Data Source [id number] 03/31/2019 11:10:26 AM EST [facility] Name Value Range Interpretation Description Data Sup porting Code Source(s) Document(s ) Prothrombin 10.7 sec 9.4-11.1 [facility] - [facility] time (PT) [facility] INR in 1.1 0.8-1.2 [facility] - [facility] Platelet poor Taoist plasma by Hospital Coagulation assay ID Date Data Source [id number] 03/31/2019 09:47:19 AM EST [facility] Progress NoteEmanuel Xlaykwvio86 y.o.Adm it Date: 03/25/2019Active Problems: Acute hypoxemic respiratory failure (HCC) (02/2019)Subjective:Patient is less lthargic, non verbalPertinent items are noted in t he History of Present Illness.Objective:Visit VitalsBP 163/66 (BP 1 Location: Left arm , BP Patient Position: At rest;Supine)Pulse (!) 51Temp 96 F (35.6 C)Resp 22Wt 52.6 kg (116 lb)SpO2 93%BMI 21.22 kg/m Intake and Output:Date 03/30/19 0700 - 03/31/19 065 9 03/31/19 0700 - 04/01/19 0659Shift 4343-9012 4096-7627 24 Hour Total 0700-1 859 4331-4439 24 Hour TotalINTAKENG/GT 250 250 Water Flush Volume (mL) (PEG/Gastro stomy Tube) 100 100 Medication Volume (PEG/Gastrostomy Tube) 150 150Shift Tot al(mL/kg) 250(4.8) 250(4.8)OUTPUTUrine(mL/kg/hr) 2300(3.7) 2300(1.8) Urine Voided 2300 2300Shift Total(mL/kg) 2300(43.9) 2300(43.9)NET - 2300 250 -2050Weight (kg) 52.4 52.4 52.4 52.6 52.6 52.6Medications Reviewed:Current Fa cility-Administered MedicationsMedication Dose Route Frequency Provider Last Rate Last Dose dextrose 5 % - 0.45% NaCl infusion 50 mL/hr IntraVENous CONTINUOUS Mili Hills DO methylPREDNISolone (PF) (SOLU-MEDROL) injection 40 mg 40 mg Int raVENous U0CVghglwMili buchanan DO 40 mg at 03/31/19 0609 acetylcysteine (MUCOMYST) 100 mg/mL (10 %) nebulizer solution 400 mg 4 mLInhalation BID RT Mili Hills D O 400 mg at 03/31/19 0934 sodium chloride (NS) flush 5-10 mL 5-10 mL IntraVENous PRN Jessie Neumann MD acetaminophen (TYLENOL) solution 650 mg 650 mg Per G Tube Q4H PRN Mili Hills DO cinacalcet (SENSIPAR) tablet 60 mg 60 mg Oral KYLEIGH Y Mili Hills, DOStopped at 03/31/19 0900 [Held by provider] heparin (porcine) in jection 5,000 Units 5,000 UnitsSubCUTAneous Q12H Mili Hills DO Stopped at 0725 lamoTRIgine (LaMICtal) tablet 50 mg 50 mg Per G Tube BID Mili Hills , DOStopped at 03/31/19 0900 valproic acid (as sodium salt) (DEPAKENE) 250 mg/5 mL (5 mL) oral solution 750mg 750 mg Per G Tube Q12H Mili Hills DO 750 mg at 0847 multivit-folic acid-herbal 275 (WELLESSE PLUS) oral liquid 30 mL 30 mL Per GTube DAILY Mili Hills DO Stopped at 03/31/19 0900 ALPRAZolam (XA NAX) tablet 0.25 mg 0.25 mg Per G Tube QPM Mili Hills, DO0.25 mg at 03/30/19 1 831 cefepime (MAXIPIME) 1 g in 0.9% sodium chloride (MBP/ADV) 50 mL MBP 1 gIntraVE Nous Q8H Mili Hills, DO 100 mL/hr at 03/31/19 0843 1 g at 843 albut maria r-ipratropium (DUO-NEB) 2.5 MG-0.5 MG/3 ML 3 mL Nebulization Q6H RTMili Hills , DO 3 mL at 03/31/19 0934 vancomycin (VANCOCIN) 1,000 mg in 0.9% sodium chlor wade 250 mL IVPB 1,000 mgIntraVENous Q12H Natasha Dudley MD 125 mL/hr at 03/31/19 0 923 1,000 mg at106/01/18 0923 budesonide (PULMICORT) 500 mcg/2 ml nebulizer suspe nsion 500 mcg NebulizationBID RT Pablo Flores MD 500 mcg at 03/31/19 0934Phy sical Exam:Physical Exam:General: Alert, cooperative, no distress, appears stated age.Eyes: Conjunctivae/corneas clear.Neck: Supple, symmetrical, trachea midline, no adenopathy, thyroid: noenlargement/tenderness/nodules, no car otid bruit and no JVD.Lungs: Clear to auscultation bilaterally.Heart: Regular rate and rhythm, S1, S2 normal, no murmur, click, rub or gallop.Abdomen: Soft, no n-tender. Bowel sounds normal. No masses, No organomegaly.Extremities: Extremities no rmal, atraumatic, no cyanosis or edema,Pulses: 2+ and symmetric all extre mities.Skin: Skin color, texture, turgor normal. No rashes or lesionsData Review: Recent Results (from the past 24 hour(s))GLUCOSE, POC Collection Time: 11:40 AMResult Value Ref Range Glucose, bedside 108 65 - 110 MG/DLGLUCO SE, POC Collection Time: 03/30/19 5:00 PMResult Value Ref Range Glucose, bedsid e 125 (H) 65 - 110 MG/DLGLUCOSE, POC Collection Time: 03/31/19 12:40 AMResult Value Ref Range Glucose, bedside 131 (H) 65 - 110 MG/DLRENAL FUNCTION PANEL Collecti on Time: 03/31/19 5:10 AMResult Value Ref Range Sodium 136 136 - 145 mmol/L Potass ium 4.0 3.5 - 5.1 mmol/L Chloride 98 98 - 107 mmol/L CO2 39 (H) 21 - 32 mmol/L Anion g ap 4 (L) 10 - 20 mmol/L Glucose 84 74 - 106 mg/dL BUN 17 7 - 18 mg/dL Creatinine 0.4 1 (L) 0.70 - 1.30 mg/dL GFR est AA >60 >60 ml/min/1.73m2 GFR est non-AA >60 >60 ml/ min/1.73m2 Calcium 10.7 (H) 8.5 - 10.1 mg/dL Phosphorus 3.1 2.5 - 4.9 mg/dL Albumin 2 .4 (L) 3.5 - 4.7 g/dLMAGNESIUM Collection Time: 03/31/19 5:10 AMResult Value Ref Range Magnesium 2.3 1.6 - 2.6 mg/dLCBC WITH AUTOMATED DIFF Collection Time: 03/31/19 5:10 AMResult Value Ref Range WBC 11.5 (H) 4.8 - 10.6 K/uL RBC 4.17 (L) 4.70 - 6.00 M/uL HGB 12.9 (L) 14.0 - 18.0 g/dL HCT 39.7 (L) 42.0 - 52.0 % MCV 95.2 (H) 81.0 - 94 .0 FL MCH 30.9 27.0 - 35.0 PG MCHC 32.5 30.7 - 37.3 g/dL RDW 16.4 (H) 11.5 - 14.0 % P LATELET 296 130 - 400 K/uL MPV 9.8 9.2 - 11.8 FL NRBC 0.0 0 PER 100 WBC ABSOLUTE NRBC 0.00 0.0 - 0.01 K/uL NEUTROPHILS 77 (H) 48.0 - 72.0 % LYMPHOCYTES 16 (L) 18.0 - 40.0 % MONOCYTES 6 2.0 - 12.0 % EOSINOPHILS 0 0.0 - 7.0 % BASOPHILS 0 0.0 - 3.0 % IMMATURE GRANULOCYTES 1 (H) 0 - 0.5 % ABS. NEUTROPHILS 8.9 (H) 2.3 - 7.6 K/UL ABS. LYMPHOCYTES 1.8 0.9 - 4.2 K/UL ABS. MONOCYTES 0.7 0.1 - 1.7 K/UL ABS. EOSINOPHILS 0.0 0.0 - 1.0 K/UL ABS. BASOPHILS 0.0 0.0 - 0.4 K/UL ABS. IMM. GRANS. 0.1 0.0 - 0.17 K/U L DF AUTOMATEDGLUCOSE, POC Collection Time: 03/31/19 6:19 AMResult Value Ref Range Glucose, bedside 82 65 - 110 MG/DLImaging:No results found.Impression:Active Hospital Problems Diagnosis Date Noted Acute hypoxemic respiratory failure (HCC) 03/15 Hyponatremia, correctedPlan:Continue IV antibiotics, v anco 1 gram q 12hvanco T in am ivf d5half at 50 ml/mMinimal free waterReplace zs1Zuax in [facility], MDDecember 2018 Name Value Range Interpretation Code Description Data [facility] Supporting Document(s ) ID Date Data Source [id number] 03/31/2019 08:03:02 AM [facility] Bedside and Verbal shift change report g iven to NANCY Chou (oncoming nurse) byEmily Aviles RN (offgoing nurse) . Report included the followinginformation SBAR, Kardex, Intake/Output, MAR and Rec ent Results. Name Value Range Interpretation Code Description Data [facility] Supporting Document(s ) ID Date Data Source [id number] 03/31/2019 08:02:19 AM [facility] Multiple attempts to insert a new IV. Nixon porter RN's attempted unsuccessfully.Current IV day 6 with no signs of infiltration, no edema, no phlebitis noted andpatent. Dr. Hills was contacted. New orders receive d for Midline insertion andare now in place. Name Value Range Interpretation Code Description Data [facility] Supporting Document(s ) ID Date Data Source [id number] 03/31/2019 06:34:31 AM EST [facility] Name Value Range Interpretation Description Data Sup porting Code Source(s) Document(s ) Glucose 82 MG/DL 65-110 [facility] - Good [Mass/volume] Taoist in Blood by [facility] Automated test strip ID Date Data Source [id number] 03/31/2019 06:16:42 AM EST [facility] Name Value Range Interpretation Description Data Sup porting Code Source(s) Document(s ) Leukocytes 11.5 4.8-10.6 Above high normal [facility] - [#/volume] in K/uL Good Blood by [facility] Automated count Hospital Erythrocytes 4.17 4.70-6.0 Below low normal [facility] - [#/volume] in M/uL 0 Good Blood by Taoist Automated count [facility] Hemoglobin 12.9 14.0-18. Below low normal [facility] - [Mass/volume] in g/dL 0 Good Blood [facility] Hematocrit 39.7 % 42.0-52. Below low normal [facility] - [Volume 0 Good Fraction] of Taoist Blood by Hospital Automated count Erythrocyte mean 95.2 FL 81.0-94. Above high normal [facility] - corpuscular 0 Good volume [Entitic Taoist volume] by Hospital Automated count Erythrocyte mean 30.9 PG 27.0-35. [facility] - corpuscular 0 Good hemoglobin Taoist [Entitic mass] Hospital by Automated count Erythrocyte mean 32.5 30.7-37. [facility] - corpuscular g/dL 3 Good hemoglobin [facility] concentration Hospital [Mass/volume] by Automated count Erythrocyte 16.4 % 11.5-14. Above high normal [facility] - distribution 0 Good width [Ratio] by Tao[facility] Automated count Hospital Platelets 296 K/uL 130-400 [facility] - [#/volume] in Good Blood by Taoist Automated count [facility] Platelet mean 9.8 FL 9.2-11.8 [facility] - volume [Entitic Good volume] in Blood [facility] by Automated Hospital count Nucleated 0.0 PER 0 [facility] - erythrocytes/100 100 WBC Good leukocytes Taoist [Ratio] in Blood Hospital Nucleated 0.00 0.0-0.01 [facility] - erythrocytes K/uL Good [#/volume] in [facility] Segmented 77 % 48.0-72. Above high normal [facility] - neutrophils/100 0 [facility] leukocytes in [facility] Lymphocytes/100 16 % 18.0-40. Below low normal [facility] - leukocytes in 0 [facility] Monocytes/100 6 % 2.0-12.0 [facility] - leukocytes in [facility] Eosinophils/100 0 % 0.0-7.0 [facility] - leukocytes in [facility] Basophils/100 0 % 0.0-3.0 [facility] - leukocytes in [facility] Immature 1 % 0-0.5 Above high normal [facility] - granulocytes/100 Good leukocytes in [facility] by [facility] Automated count Segmented 8.9 K/UL 2.3-7.6 Above high normal [facility] - neutrophils Good [#/volume] in [facility] Lymphocytes 1.8 K/UL 0.9-4.2 [facility] - [#/volume] in [facility] Monocytes 0.7 K/UL 0.1-1.7 [facility] - [#/volume] in [facility] Eosinophils 0.0 K/UL 0.0-1.0 [facility] - [#/volume] in [facility] Basophils 0.0 K/UL 0.0-0.4 [facility] - [#/volume] in [facility] Immature 0.1 K/UL 0.0-0.17 [facility] - granulocytes Good [#/volume] in [facility] Automated count Differential [facility] - cell count [facility] ID Date Data Source [id number] 03/31/2019 06:14:08 AM EST [facility] - [facility] Name Value Range Interpretation Description Data Sup porting Code Source(s) Document(s ) Sodium 136 136-145 [facility] - Good [Moles/volume] mmol/L Taoist in Serum or Hospital Plasma Potassium 4.0 3.5-5.1 [facility] - Good [Moles/volume] mmol/L Taoist in Serum or Hospital Plasma Chloride 98 98-107 [facility] - Good [Moles/volume] mmol/L Taoist in Serum or Hospital Plasma Carbon 39 21-32 Above high normal [facility] - Good dioxide, total mmol/L Taoist [Moles/volume] Hospital in Serum or Plasma Anion gap in 4 mmol/L 10-20 Below low normal [facility] - Go od Serum or Taoist Plasma Hospital Glucose 84 mg/dL 74-106 [facility] - Good [Mass/volume] Taoist in Serum or Hospital Plasma Urea nitrogen 17 mg/dL 7-18 [facility] - Good [Mass/volume] Taoist in Serum or Hospital Plasma Creatinine 0.41 0.70-1.3 Below low normal [facility] - Good [Mass/volume] mg/dL 0 Taoist in Serum or Hospital Plasma Glomerular >60 [facility] - Good filtration Taoist rate/1.73 sq M Hospital predicted among blacks [Volume Rate/Area] in Serum or Plasma by Creatinine-bas ed formula (MDRD) Glomerular >60 [facility] - Good filtration Taoist rate/1.73 sq M Hospital predicted among non-blacks [Volume Rate/Area] in Serum or Plasma by Creatinine-bas ed formula (MDRD) Calcium 10.7 8.5-10.1 Above high normal [facility] - Good [Mass/volume] mg/dL Taoist in Serum or Hospital Plasma Phosphate 3.1 2.5-4.9 [facility] - Good [Mass/volume] mg/dL Taoist in Serum or Hospital Plasma Albumin 2.4 g/dL 3.5-4.7 Below low normal [facility] - Good [Mass/volume] Taoist in Serum or Hospital Plasma by Bromocresol purple (BCP) dye binding method ID Date Data Source [id number] 03/31/2019 06:14:08 AM EST [facility] - Good [facility] Name Value Range Interpretation Description Data Sup porting Code Source(s) Document(s ) Magnesium 2.3 mg/dL 1.6-2.6 [facility] - Good [Mass/volume] Taoist in Serum or Hospital Plasma ID Date Data Source [id number] 03/31/2019 04:39:01 AM EST [facility] - Good [facility] Problem: Pressure Injury - Risk ofGoal: *Prevention of pressure injuryDescriptionDocument Butch Scale a nd appropriate interventions in the flowsheet.Outcome: Progressing Towards G oalNote: Pressure Injury Interventions:Sensory Interventions: Ass ess changes in LOC, Float heels, Keep linens dry andwrinkle-free, Minimize linen laye rs, Turn and reposition approx. every two hours(pillows and wedges if needed)Moist ure Interventions: Absorbent underpads, Apply protective barrier, creamsand emollients , Internal/External urinary devicesActivity Interventions: Assess need for specialty bedMobility Interventions: Float heels, Pressure redistribution bed/mattress (be dtype), Turn and reposition approx. every two hours(pillow and wedges)(Heelboots)Nutri tion Interventions: Document food/fluid/supplement intakeFriction and Shear Interventions: Apply protective barrier, creams andemollientsProblem: Dayanara tong Education: Go to Patient Education ActivityGoal: Patient/Family EducationOu tcome: Progressing Towards Goal Name Value Range Interpretation Code Description Data Harriett rce(s) Supporting Document(s ) ID Date Data Source [id number] 03/31/2019 12:56:11 AM EST [facility] - G [facility] Name Value Range Interpretation Description Data Sup porting Code Source(s) Document(s ) Glucose 131 MG/DL 65-110 Above high normal [facility] [Mass/volume] Taoist in Blood by Hospital Automated test strip ID Date Data Source [id number] 03/30/2019 11:14:36 PM EST [facility] Progress NotePatient: Evelio Carlin Sex: male DOA: 03/25/2019Date of : 1950 Age: 68 y.o. :[id number]:Reyes Carlin is 68 y.o. male who was pulling off his bipap mask overnightwith O2 desa turation. Wrist restraints were ordered, and an additional dose ofXanax was given. R Pt would drop off to sleep and the wrist restraints were notneeded.He has an occa sional cough, but not expectorating.He is s/p EGD with positioning of jenunal feeding tube and endoclipping on03/26/19Pt with TF leaking and was found with crack in the tube.Nursing staff was instructed by santiago weldon to use the side port. He is sandhya TF.For j tube placement in morning. He has medical history of Dysphagia, recurrent aspirati on pneumonia, s/p g/tconversion to jtube on 02/07/19, hyperlipidemia,hyperparathyroi d,unspecified,seizure, large hiatal hernia, anxiety disorder, personal history ofpul monary embolus,COPD, GERD, Schizophrenia unspecified, Kyphosis, Parkinsondisease , Severe intellectual disabilities.and Generalized muscle weakness.As per [facility] transfer record, the patient was transferred to the EDfor Hypoxia, he was found with O2 SAT 77 % on O2 NC 4 LPM and tachypneic. Hewas later placed on NRBM. Patient has a clogged jtube and the long-term hasbeen using the gtube site for fe edings and administration of medications.Pt was seen at [facility] by fatemeh Shabazz and jocelyn ns were for jtube placement, that wasscheduled for the same day as his adm ission.The patient is nonverbal and unable to participate with his history.Patient was admitted with encounter diag of Acute Hypercapneic and Hypoxemicrespiratory fa ilure and aspiration pneumonia. 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 Pupils are equalNeck: Supple, symmetrical, no stephanie nopathy, no carotid bruit and no JVD.Lungs: Clear to auscultation bilaterally. No Wheezing or Rhonchi. No rales.Chest wall: No Accessory muscle use.Heart: Regular rate and rhythm, no murmur, or rub.Abdomen: Positive g/t, non-tender. Not distende d. Bowel sounds normal. NomassesExtremities: Contractures lower limbs. atraumatic, No cyanosis. No edema. NoclubbingSkin: Warm and dry. No rashes or lesions. No t JaundicedLymph nodes: Cervical, supraclavicular normal.Psych: Not anx ious or agitated.Neurologic: EOMs intact. No facial asymmetry, generalized weakness,. Non verbal,Alert and Awake.Intake and Output:Current Shift: No intake/output data recorded.Last three shifts: 03/29 701 - 03/30 1900In: 300Out: 5900 [Urine:5900 ]Lab/Data Reviewed:Recent Days:Recent Labs 03/29/1904WB C 10.5 8.4 9.1HGB 14.4 11.7* 11.6*HCT 42.5 35.8* 34.4*PLT 346 308 301Recent Labs 1 03/29/1904NA 134* 135* 138K 4.8 3.9 3.9CL 95* 98 103CO2 34 * 35* 29GLU 99 121* 134*BUN 03 26 15CREA 0.45* 0.33* 0.39*CA 10.5* 9.8 9.5MG 2.2 2.0 2.0PHOS 3.1 2.8 2.3*ALB 2.9* 2.4* 2.2*No results for input(s): PH, PCO2, PO2, HCO 3, FIO2 in the last 72 hours.CULTURE, BLOOD [[id number]] (Order [id number])MicrobiologyD ate: 03/25/2019 Department: [facility] 3t Med Surg Released By/Authorizing:Daniela Neumann MD (auto-released)Specimen Information: Blood Component Value Flag Ref Range Units StatusSpecial Requests: FinalNO SPECIAL REQUESTSCulture result: NO GROWTH 5 DAYSCULTURE, BLOOD [[id number]] (Order [id number])MicrobiologyDate: 03/25 Department: [facility] Med Surg Released By/Authorizing:Jessie Neumann MD (auto-released)Specimen Information: Blood Component Value Flag Ref Range Units Sta tusSpecial Requests: FinalNO SPECIAL REQUESTSCulture result: NO GROWTH [address] Chest Wo ContResult Date: 03/14/2019History: Respiratory difficult y. FINDINGS: CT scanning of the chest wasperformed helically from lung apices to the upper abdomen without intravenouscontrast dural. Sagittal and coronal reconstructed images are submitted.Scanning was performed utilizi ng dose lowering techniques and is compared to theprior study of 01/15/2019. Evaluati on of thoracic vascular structures is limitedwithout intravenous contrast mate rial. There is, however, no definite CTevidence of dissection or focal aneury smal dilatation. Some peripheralcalcification is noted. There is no evidence of any pa thologically enlargedlymph node within the visualized portions of the mediastinum o r axillae. Somenonpathologically enlarged lymph nodes are seen. Again noted is angel vation of theleft hemidiaphragm. A left small pleural effusion is noted as well asatel ectatic change at the left lung base. Patchy opacity at the right lung baseis compati ble with a right basilar infiltrate. There is some patchy opacitywithin the right midd le lobe as well. The right basal infiltrate is greater insize than that seen previou sly. The pleural effusion is smaller. The rightmiddle lobe infiltrate is similar. Limited evaluation of upper abdominalstructures reveals a tube withi n the stomach directed toward the duodenum.Diffuse hypertrophic degenerati ve changes are noted of the thoracic spine. Thereis again noted to be shift of media stinal structures to the right.IMPRESSION: Worsening right lower lobe infiltrate. S light worsening of the rightmiddle lobe infiltrate. Improved left lung.Xr Chest PortResult Date: 03/25/2019CHEST one view HISTORY: Fever. Reflux. Gastrostomy. COM PARISON: 03/11/2019.There is a poor inspiratory effort which compromises thi s interpretation. Arepeat study is suggested. There is discoid atelectasis and/or lef t lower lobeinfiltrate.There is no gross evidence of congestion, other infiltrate s,effusions or pneumothorax.IMPRESSION: Possible left lower lobe infiltrate. Poo r inspiratory effort.Xr Chest PortResult Date: 03/11/2019CHEST one view HISTORY: Fever. COPD. Reflux. COMPARISON: 02/12/2019. Anadditional view was obtained. A tubula r structure overlies the stomach andmidabdomen with some gastric distenti on and elevation of the left hemidiaphragm.There is a poor inspirator y effort which compromises this interpretation. Arepeat study is suggest ed. .There is no gross evidence of congestion,infiltrates, effusions or pne umothorax. Old rib fractures are noted.IMPRESSION: No evidence of acute c ardiopulmonary disease. Poor inspiratoryeffort. Gastric distention.Me dications reviewedCurrent Facility-Administered MedicationsMedicat ion Dose Route Frequency acetylcysteine (MUCOMYST) 100 mg/mL (10 %) nebulizer so lution 400 mg 4 mLInhalation BID RT sodium chloride (NS) flush 5-10 mL 5-10 mL Int raVENous PRN acetaminophen (TYLENOL) solution 650 mg 650 mg Per G Tube Q4H P RN cinacalcet (SENSIPAR) tablet 60 mg 60 mg Oral DAILY [Held by provider] heparin ( porcine) injection 5,000 Units 5,000 UnitsSubCUTAneous Q12H lamoTRIgine (Carver ICtal) tablet 50 mg 50 mg Per G Tube BID valproic acid (as sodium salt) (DEPAKENE ) 250 mg/5 mL (5 mL) oral solution 750mg 750 mg Per G Tube Q12H methylPREDNISolone ( PF) (SOLU-MEDROL) injection 40 mg 40 mg IntraVENous Q6H multivit-folic acid-her bal 275 (WELLESSE PLUS) oral liquid 30 mL 30 mL Per GTube DAILY ALPRAZolam (XANAX) t ablet 0.25 mg 0.25 mg Per G Tube QPM cefepime (MAXIPIME) 1 g in 0.9% sodium c hloride (MBP/ADV) 50 mL MBP 1 gIntraVENous Q8H albuterol-ipratropium (DUO-NEB) 2.5 MG-0.5 MG/3 ML 3 mL Nebulization Q6H RT vancomycin (VANCOCIN) 1,000 mg in 0.9% s odium chloride 250 mL IVPB 1,000 mgIntraVENous Q12H budesonide (PULMICOR T) 500 mcg/2 ml nebulizer suspension 500 mcg NebulizationBID RTAssessment/Plan:Hospit al Problems Date Reviewed: 03/30/2019 Codes Class Noted POA Acute hypoxemic re spiratory failure (HCC) ICD-10-CM: J96.01ICD-9-CM: 518.81 03/25/2019 Unkno wnAssessment:Acute Hypercapneic, Hypoxemic Respiratory FailureAspiration PneumoniaC OPDLeukocytosis- trending downwardMalfunctioning jtube; tubing kanika ears to be defectiveDysphagia ( s/p gtube conversion to jtube on 02/07/19)Anxiety DisorderHyperparathyroid Unspecified typeMentally challengedSeizure disorderH yponatremia- stableHypophosphate Plan: Continue IV cefepime and vancomycin per IDVM, PRN BIPAP per pulmonaryAwaiting arrival of new jtubeGI follow upIv steroids tape r per pulmonarynebulizersFollow up culturesMonitor lytesConsult nutritionis Teofilo Motta 2018Time: 10:41 PM Name Value Range Interpretation Code Description Data Harriett rce(s) Supporting Document(s ) ID Date Data Source [id number] 03/30/2019 09:44:06 PM EST [facility] Consult NotePatient: Evelio Jean RN: [id number] CSN: [id number] of : 1950 Age: 68 y.o. Sex: maleDOA: 1 05/26/2018Requesting Physician: Dr Madrigal:Evelio Carlin is a 68 y.o. male who I have been asked to see for evaluationof a J tube placement in view of the fact that that the feed component of theG/J tube is not functioning gastrosto my tube was placed in 11/17/2018. The post opcourse was complicated by drainage of ascites through the wound and managed witha Provena dressing (negative pressure). A dehiscence was avoided, the drainagestopped the wound healed and the kalpana were re moved in [place]. A ventralhernia developed which is subxiphoid and approx imately 6cm in width. 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 No pertinent family history.So cial HistorySocioeconomic History Marital status: SINGLE Spouse name: Not on file Number of children: Not on file Years of education: Not on file Highest educatio n level: Not on fileTobacco Use Smoking status: Never Smoker Smokeless tobacco: Never UsedSubstance and Sexual Activity Alcohol use: No Drug use: NoOther Topic s ConcernPrior to Admission medicationsMedication Sig Start Date End Date Taking? Authorizing Providerheparin sodium,porcine (HEPARIN, PORCINE,) 5,000 unit/mL injection 1 mL bySubCUTAneous route every twelve (12) hours every twelve (12 ) hours. 03/17/19Mili Hills DOmultivitamin (MULTI-DELYN, WELLESSE) l iqd 5 mL by Per G Tube route daily.03/17/19 Miil Hills DOacetaminophen (TYLENO L) 32MG/ML soln solution Take 20.3 mL by mouth every four(4) hours as needed for Pain or Fever. 03/17/19 Mili Hills DOvalproic acid, as sodium salt, (DEPAKE NE) 250 mg/5 mL (5 mL) soln oral [id number] mg by Per G Tube route every twelve (12) hours. Provider, Historicalacetylcysteine (MUCOMYST) 100 mg/mL (10 %) nebulizer so lution Take 4 mL byinhalation two (2) times a day. Provider, Historicalclorazepate (TRANXENE) 3.75 mg tablet 1 Tab by Per G Tube route nightly. MaxDaily Amount: 3.75 mg. 12/30/18 Mili Hills DOcinacalcet (SENSIPAR) 30 mg tablet Take 2 Tabs by m outh daily.Patient taking differently: 30 mg daily. Via G tube 12/30/18 Maryann Hills,DOlamoTRIgine (LAMICTAL) 25 mg tablet 2 Tabs by Per G Tube route two (2) times a day. 12/30/18 Mili Hills DOalbuterol-ipratropium (DUO-NEB) 2.5 mg -0.5 mg/3 ml nebu 3 mL by Nebulizationroute every six (6) hours. Every 6 hours while awakePatient taking differently: 3 mL by Nebulization route every four (4) hours asneeded. Every 6 hours while awake 12/30/18 Mili Hills DObudesonide (PULMICORT ) 0.5 mg/2 mL nbsp 2 mL by Nebulization route two (2) timesa day. 12/30/18 Maryam Hills DONo Known AllergiesReview of SystemsGENERAL: No fevers or chills.HEEN T: No change in vision, no earache, tinnitus, sore throat or sinuscongestion. No hist ory of cataract, no history of Eustachian tube dysfunctionNECK: No pain or stiffne ss.CARDIOVASCULAR: No chest pain or pressure. No palpitations. No H/O congestiveheart failurePULMONARY: No shortness of breath, cough or wheeze.GASTROINTESTINAL: No abd ominal pain, nausea, vomiting or diarrhea, melena orbright red blood per rectum.GEN ITOURINARY: No urinary frequency, urgency, hesitancy or dysuria.MUSCULOSKELETAL: No joint or muscle pain, no back pain, no recent trauma.DERMATOLOGIC: No rash, no itching, no lesions.ENDOCRINE: No polyuria, polydipsia, no heat or cold intolerance. No recentchange in weight.HEMATOLOGICAL: No anemia or easy bruising or bleeding. No history ofchemotherapy.NEUROLOGIC: No headache, numbness, tingling or weakness . No history of seizure.Physical Exam:Visit VitalsBP 108/84 (BP 1 Location: Left arm , BP Patient Position: At rest)Pulse 70Temp 98.2 F (36.8 C)Resp 18Wt 52.4 kg (115 lb 9.6 oz)SpO2 93%BMI 21.14 kg/m O2 Flow Rate (L/min): 3 l/min O2 Device: Nasal c annulaTemp (24hrs), Av.9 F (36.6 C), Min:96.8 F (36 C), Max:98.3 F (36.8 C)Nonverbal Abdomen: Soft, non-tender. Bowel sounds normal. Ventral hernia wide ring 6 x 6cm upper subxiphoid regionExtremities: Extremities normal, atraumatic, no cyano sis or edema.Pulses: 2+ and symmetric all extremities.Labs Reviewed:CMP:Lab Result sComponent Value Date/Time NA 134 (L) 03/30/2019 05:19 AM K 4.8 03/30/2019 05: 19 AM CL 95 (L) 03/30/2019 05:19 AM CO2 34 (H) 03/30/2019 05:19 AM AGAP 10 03/30/20 19 05:19 AM GLU 99 03/30/2019 05:19 AM BUN 12 03/30/2019 05:19 AM CREA 0.45 (L) 2018 05:19 AM GFRAA >60 03/30/2019 05:19 AM GFRNA >60 03/30/2019 05:19 AM CA 10.5 (H ) 03/30/2019 05:19 AM MG 2.2 03/30/2019 05:19 AM PHOS 3.1 03/30/2019 05:19 AM ALB 2.9 (L) 03/30/2019 05:19 AMCBC:Lab ResultsComponent Value Date/Time WBC 10. 5 03/30/2019 05:19 AM HGB 14.4 03/30/2019 05:19 AM HCT 42.5 03/30/2019 05:[address] T 346 03/30/2019 05:19 AMAssessmentActive Problems: Acute hypoxemic respiratory f ailure (HCC) (03/25/2019)Medical Decision Making and RecommendationWould recommend replacement of J/G tube rather than subjecting the patient tosurgery. Kanu rojas is a very poor risk, and does not heal because ofimmunosuppression, on every ho spitalization he is placed on steroids for hiscopd/ pneumonia.Letty Kaye, [facility] ember 2018 Name Value Range Interpretation Code Description Data Harriett e(s) Supporting Document(s ) ID Date Data Source [id number] 03/30/2019 09:00:05 PM EST [facility] Progress NoteMID-N[facility] ,[facility].Krystian Monae MD., F.C.C.P.Stella Hamilton MD., F.C.C.P. [address] [place] [id number] [place] [address] [phone]: Evelio Carlin Sex: male DOA: 03/25/2019D ate of : 1950 Age: 68 y.o. LOS: LOS: 5 daysSubjective: Reyes Carlin is a 68 y.o. male with history of COPD, GERD,hyperparathyroidism, Parkinso nism, pneumonia, schizophrenia, and pulmonaryemboli with a surgical history of gastrostomy who presents to the EmergencyDepartment via emergency medica l services sent in from long-term for hypoxiaand possible pneumonia. [facility] and cannot provide any history ofreview of systems at the time. PATIENT HAVE SEVERE CEREBRAL PALSY , MENTAL RETARDATION AND IS NON VERBAL .NO HX CANNOT BE CONF IRMED FROM PATIENT , CHART IS REVIEWED.MULTIPLE ADMISSIONS FOR ASPIRA TION PNEUMONIA , HE IS BED RIDDEN . 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 Social History Tobacco Use Smoking status: Never Smoker Smokeless tobacco: Never UsedSubstance Use Topics Alcohol use: No History reviewed. No pertinent family history. No Known Aller gies Prior to Admission medicationsMedication Sig Start Date End Date Taking? Authorizing Providerheparin sodium,porcine (HEPARIN, PORCINE,) 5,000 unit/mL injection 1 mL bySubCUTAneous route every twelve (12) hours every twelve (12 ) hours. 03/17/19 Mili Hills DOmultivitamin (MULTI-DELYN, WELLESSE) l iqd 5 mL by Per G Tube route daily.03/17/19 Mili Hills DOacetaminophen (TYLEN OL) 32MG/ML soln solution Take 20.3 mL by mouth every four(4) hours as needed for Pain or Fever. 03/17/19 Mili Hills DOvalproic acid, as sodium salt, (DEPAKE NE) 250 mg/5 mL (5 mL) soln oral [id number] mg by Per G Tube route every twelve (12) hours. Provider, Edieacetylcysteine (MUCOMYST) 100 mg/mL (10 %) nebulizer solution Take 4 mL byinhalation two (2) times a day. Provider, Edieclorazepate (TRANXENE) 3.75 mg tablet 1 Tab by Per G Tube route nightly. MaxDaily Amount: 3.75 mg. 12/30/18 Mili Hills DOcinacalcet (SENSIPA R) 30 mg tablet Take 2 Tabs by mouth daily.Patient taking differently: 30 mg daily. Via G tube 12/30/18 Mili HillsDOlamoTRIgine (LAMICTAL) 25 mg t ablet 2 Tabs by Per G Tube route two (2) times aday. 12/30/18 Mili Hills DOalbuterol-ipratropium (DUO-NEB) 2.5 mg-0.5 mg/3 ml nebu 3 mL by Nebulizationroute e very six (6) hours. Every 6 hours while awakePatient taking differently: 3 mL by Nebulization route every four (4) hours asneeded. Every 6 hours while awake 12/30 Mili Hills DObudesonide (PULMICORT) 0.5 mg/2 mL nbsp 2 mL by Neb ulization route two (2) timesa day. 12/30/18 Mili Hills DO REVIEW OF SYSTEMS : SEVERE MENTAL RETARDATION , CANNOT DO ROS .General: negative for fever, chill s, sweats, weaknessEyes: negative for blurred vision, eye pain, loss of vision, diplop iaEar Nose and Throat: negative for rhinorrhea, pharyngitis, otalgia, tinnit us,speech or swallowing difficultiesRespiratory: negative for c ough, sputum production, SOB, wheezing, DAVALOS,pleuritic painCardiology: negative for chest pain, palpitations, orthopnea, PND, edema,syncopeGastrointestinal: negative for abdominal pain, N/V, dysphagia, change in bowelhabits, bleedingGenitourinary: nega tive for frequency, urgency, dysuria, hematuria, incontinenceMuskuloskeletal : negative for arthralgia, myalgiaHematology: negative for easy bruising, bleeding, ly mphadenopathyDermatological: negative for rash, ulceration, mole change, new lesio nEndocrine: negative for hot flashes or polydipsiaNeurological: negative for hea dache, dizziness, confusion, focal weakness,paresthesia, memory loss, gait disturbancePsychological: negative for anxiety, depression, agitationObjective: Vital Signs:Patient Vitals for the past 24 hrs: BP Temp Pulse Resp SpO2 [place]8903/30 1945 108/84 98.2 F (36.8 C) 70 18 93 % -03/30/19 1523 133/82 97.6 F (36.4 C) 76 18 91 % -03/30/19 1154 127/75 96.8 F (36 C) 62 18 94 % -03/30/19 0753 133/69 98.3 F (36.8 C) 60 18 98 % -03/30/19 0558 - - - - - 52.4 kg (115 lb 9.6 oz)03/30/19 0401 157/88 98.2 F (36.8 C) 88 18 97 % -03/30/19 0113 - - - - 96 % -03/30/19 00 22 102/76 98.1 F (36.7 C) 86 18 98 % -03/29/19 2313 - - - - 96 % -Pulse OX:Sp O2 Readings from Last 6 Encounters:03/30/19 93%03/17/19 92%02/19/19 96%02/18/19 92%1 93%12/30/18 96%@LASTSAO2(6)@Physical Exam:MORE AWAKE , COMFORTABLE , MORE ALERT TODAY , SPO2 = 92%,NON VERBAL General: Alert, cooperative, no distre ss, appears stated age. Head: Normocephalic, without obvious abnormali ty, atraumatic. Eyes: Conjunctivae/corneas clear. PERRL, EOMs intact. Nose: Nares normal. No drainage or sinus tenderness Thr oat: Lips, mucosa, and tongue normal Neck: Supple, symmetrical, trachea midline, no adenopathy,thyroid: no enlargement/tenderness/nodules, no carot id bruit and no JVD. Lungs: SLIGHTLY IMPROVED AIR EXCHANGE TOD AY , RALESDECREASED L L L to auscultation bilaterally. Chest Wall: No tendernes s or deformity. Heart: Regular rate and rhythm, S1, S2 normal, no murmu r, click,rub or gallop. Abdomen: Soft, non-tender. Bowel sounds normal. No mass es, No organomegaly. Extremities: Extremities normal, atraumatic, no cyano sis or edema. Pulses: 4+ bilaterally. Skin: Skin co nirali, texture, turgor normal. No rashes or lesions. Neurologic: CNII-XII intact. No focal motor or sensory deficit.Intake and Output:Last three shifts: 03/29 0701 - 03/30 1900In: 300Out: 5900 [Urine:5900]Lab Results:Recent Results (from the past 24 hour(s))GLUCOSE, POC Collection Time: 03/30/19 12:17 AMResult Value Ref Range Glucose, bedside 99 65 - 110 MG/DLRENAL FUNCTION PANEL Collection Time: 03/30/19 5:19 AMResult Value Ref Range Sodium 134 (L) 136 - 145 mmol/L Potassium 4.8 3.5 - 5.1 mmol/L Chloride 95 (L) 98 - 107 mmol/L CO2 34 (H) 21 - 32 mmol/L Anion gap 10 1 0 - 20 mmol/L Glucose 99 74 - 106 mg/dL BUN 12 7 - 18 mg/dL Creatinine 0.45 (L) 0.70 - 1.30 mg/dL GFR est AA >60 >60 ml/min/1.73m2 GFR est non-AA >60 >60 ml/ min/1.73m2 Calcium 10.5 (H) 8.5 - 10.1 mg/dL Phosphorus 3.1 2.5 - 4.9 mg/dL Albumin 2 .9 (L) 3.5 - 4.7 g/dLMAGNESIUM Collection Time: 03/30/19 5:19 AMResult Value Ref Range Magnesium 2.2 1.6 - 2.6 mg/dLCBC WITH AUTOMATED DIFF Collection Time: 03/30/19 5:19 AMResult Value Ref Range WBC 10.5 4.8 - 10.6 K/uL RBC 4.57 (L) 4.70 - 6.00 M/u L HGB 14.4 14.0 - 18.0 g/dL HCT 42.5 42.0 - 52.0 % MCV 93.0 81.0 - 94.0 FL MCH 31.5 27.0 - 35.0 PG MCHC 33.9 30.7 - 37.3 g/dL RDW 16.0 (H) 11.5 - 14.0 % PLATELET 346 130 - 400 K/uL MPV 10.2 9.2 - 11.8 FL NEUTROPHILS 88 (H) 48.0 - 72.0 % LYMPHOCYTES 9 (L) 1 8.0 - 40.0 % MONOCYTES 3 2.0 - 12.0 % EOSINOPHILS 0 0.0 - 7.0 % BASOPHILS 0 0. 0 - 3.0 % ABS. NEUTROPHILS 9.2 (H) 1.5 - 6.6 K/UL ABS. LYMPHOCYTES 0.9 (L) 1.5 - 3.5 K/UL ABS. MONOCYTES 0.3 0.0 - 1.0 K/UL ABS. EOSINOPHILS 0.0 0.0 - 0.7 K/UL ABS. BASO PHILS 0.0 0.0 - 0.1 K/UL DF AUTOMATED IMMATURE GRANULOCYTES 0 0.0 - 2.0 %GLUCO SE, POC Collection Time: 03/30/19 6:56 AMResult Value Ref Range Glucose, bedsid e 98 65 - 110 MG/DLGLUCOSE, POC Collection Time: 03/30/19 11:40 AMResult Value Ref Range Glucose, bedside 108 65 - 110 MG/DLGLUCOSE, POC Collection Time: 03/30 5:00 PMResult Value Ref Range Glucose, bedside 125 (H) 65 - 110 MG/DLABG:No res ults for input(s): PH, PCO2, PO2, HCO3, FIO2 in the last 72 hours.Recent Glucose Resu lts:Lab ResultsComponent Value Date/Time GLU 99 03/30/2019 05:19 AM GLUCPOC 125 (H) 1 05/31/2018 05:00 PM GLUCPOC 108 03/30/2019 11:40 AM GLUCPOC 98 03/30/2019 06:56 AM@ LABAPCYTOINTERPRETATION@CULTURESAll Micro Results Procedure Component Value Units Date/Time CULTURE, BLOOD [[id number]] Collected: 03/25/19 0255 Order Status: Completed Specimen: Blood Updated: 03/30/19620 Special Requests: NO SPEC IAL REQUESTS Culture result: NO GROWTH 5 DAYS CULTURE, BLOOD [[id number]] Collecte d: 03/25/19309 Order Status: Completed Specimen: Blood Updated: 03/30/19620 Special Requests: NO SPECIAL REQUESTS Culture result: NO GROWTH 5 DAYSImages:@ IMAGESENCORD@Ct Chest Wo ContResult Date: 03/14/2019History: Respiratory difficult y. FINDINGS: CT scanning of the chest wasperformed helically from lung apices to the upper abdomen without intravenouscontrast dural. Sagittal and coronal reconstructed images are submitted.Scanning was performed utilizi ng dose lowering techniques and is compared to theprior study of 01/15/2019. Evaluati on of thoracic vascular structures is limitedwithout intravenous contrast mate rial. There is, however, no definite CTevidence of dissection or focal aneury smal dilatation. Some peripheralcalcification is noted. There is no evidence of any pa thologically enlargedlymph node within the visualized portions of the mediastinum o r axillae. Somenonpathologically enlarged lymph nodes are seen. Again noted is angel vation of theleft hemidiaphragm. A left small pleural effusion is noted as well asatel ectatic change at the left lung base. Patchy opacity at the right lung baseis compati ble with a right basilar infiltrate. There is some patchy opacitywithin the right midd le lobe as well. The right basal infiltrate is greater insize than that seen previou sly. The pleural effusion is smaller. The rightmiddle lobe infiltrate is similar. Limited evaluation of upper abdominalstructures reveals a tube withi n the stomach directed toward the duodenum.Diffuse hypertrophic degenerati ve changes are noted of the thoracic spine. Thereis again noted to be shift of media stinal structures to the right.IMPRESSION: Worsening right lower lobe infiltrate. S light worsening of the rightmiddle lobe infiltrate. Improved left lung.Xr Chest PortResult Date: 03/25/2019CHEST one view HISTORY: Fever. Reflux. Gastrostomy. COM PARISON: 03/11/2019.There is a poor inspiratory effort which compromises thi s interpretation. Arepeat study is suggested. There is discoid atelectasis and/or lef t lower lobeinfiltrate.There is no gross evidence of congestion, other infiltrate s,effusions or pneumothorax.IMPRESSION: Possible left lower lobe infiltrate. Poo r inspiratory effort.Xr Chest PortResult Date: 03/11/2019CHEST one view HISTORY: Fever. COPD. Reflux. COMPARISON: 02/12/2019. Anadditional view was obtained. A tubula r structure overlies the stomach andmidabdomen with some gastric distenti on and elevation of the left hemidiaphragm.There is a poor inspirator y effort which compromises this interpretation. Arepeat study is suggest ed. .There is no gross evidence of congestion,infiltrates, effusions or pne umothorax. Old rib fractures are noted.IMPRESSION: No evidence of acute c ardiopulmonary disease. Poor inspiratoryeffort. Gastric distention.Me dications:Current Facility-Administered MedicationsMedication Dose Route Frequen cy acetylcysteine (MUCOMYST) 100 mg/mL (10 %) nebulizer solution 400 mg 4 mLInhala tion BID RT sodium chloride (NS) flush 5-10 mL 5-10 mL IntraVENous PRN acetaminoph en (TYLENOL) solution 650 mg 650 mg Per G Tube Q4H PRN cinacalcet (SENSIPAR) tabl et 60 mg 60 mg Oral DAILY [Held by provider] heparin (porcine) injection 5, 000 Units 5,000 UnitsSubCUTAneous Q12H lamoTRIgine (LaMICtal) tablet 50 mg 50 mg Per G Tube BID valproic acid (as sodium salt) (DEPAKENE) 250 mg/5 mL (5 mL) oral solution 750mg 750 mg Per G Tube Q12H methylPREDNISolone (PF) (SOLU-MEDROL) in jection 40 mg 40 mg IntraVENous Q6H multivit-folic acid-herbal 275 (WELLESSE PLUS) oral liquid 30 mL 30 mL Per GTube DAILY ALPRAZolam (XANAX) tablet 0.25 mg 0.25 mg Per G Tube QPM cefepime (MAXIPIME) 1 g in 0.9% sodium chloride (MBP/ADV) 50 mL MBP 1 gIntraVENous Q8H albuterol-ipratropium (DUO-NEB) 2.5 MG-0 .5 MG/3 ML 3 mL Nebulization Q6H RT vancomycin (VANCOCIN) 1,000 mg in 0.9% s odium chloride 250 mL IVPB 1,000 mgIntraVENous Q12H budesonide (PULMICOR T) 500 mcg/2 ml nebulizer suspension 500 mcg NebulizationBID RTActive Problems: Acut e hypoxemic respiratory failure (HCC) (03/25/2019)Assessment:1. ACUTE HYPERCAP NICOLAS AND HYPOXIC RESPIRATORY FAILURE2. SEVER COPD 3. ASPIRATION PNEUMONIA 4. SMA LL ATELECTASIS L L L5. CLOGGED P E G6. PARKINSONISM7. SEVERE MENTAL RETARDA TION Plan: 1.CONT BIPAP SUPPORT I P A P/ E P A P = 12/7 CM ,,RATE = 18 , FIO2 50 % ,KEEP SPO2 > 92% P R N2. F/ U CULTURES 3. AGREE WITH I V CEFEPIME AND VANCOMYCIN4. I V SOLUMEDROL5. DUO NEB QID6. I V FLUIDS7. CHEST PT 8. SOME IMPROVEMENT NOTED ., CONT SAME TREATMENT9. NEED P EG / J TUBE FIXAT ION Krystian Monae MD F.C.C.P.March 30, 20198:52 PM Name Value Range Interpretation Code Description Data [facility] Supporting Document(s ) ID Date Data Source [id number] 03/30/2019 08:36:18 PM EST [facility] Bedside and Verbal shift change report g ankit to Brooks Aviles (oncoming nurse)by Aneta Mcdonald (offgoing nurse). Report includ ed the following information SBAR,Kardex, MAR and Recent Results. Name Value Range Interpretation Code Description Data [facility](s) Supporting Document(s ) ID Date Data Source [id number] 03/30/2019 07:45:03 PM EST [facility] Problem: Falls - Risk ofGoal: *Absence o f FallsDescriptionDocument Samra Fall Risk and appropriate interventions in the jhon wsheet.Outcome: Progressing Towards GoalNote: Fall Risk Interventions:Mentation Interv entions: Adequate sleep, hydration, pain controlMedication Interventions: Bed/maggy ir exit alarmElimination Interventions: Bed/chair exit alarmProblem: Seizure Dis order (Adult)Goal: *STG: Remains free of seizure activityOutcome: Progressing [place] GoalGoal: InterventionsOutcome: Progressing Towards Goal Name Value Range Interpretation Code Description Data Harriett rce(s) Supporting Document(s ) ID Date Data Source [id number] 03/30/2019 05:11:22 PM EST [facility] Name Value Range Interpretation Description Data Sup porting Code Source(s) Document(s ) Glucose 125 MG/DL 65-110 Above high normal [facility] - Good [Mass/volume] Taoist in Blood by [facility] Automated test strip ID Date Data Source [id number] 03/30/2019 11:56:11 AM EST [facility] Name Value Range Interpretation Description Data Sup porting Code Source(s) Document(s ) Glucose 108 MG/DL 65-110 [facility] - Good [Mass/volume] [facility] in Blood by Hospital Automated test strip ID Date Data Source [id number] 03/30/2019 11:17:28 AM EST [facility] RECOMMENDATIONS:Continue current tube fe eding orderRecommend supplement(s): Prostat BID (100kcal, 15g prot ea)When feasible add 100 ml free water b4nFSPORADYO ASSESSMENT InitialSubjective: pt is nonverbal PEG c onverted to a PEJ yesterday.Admitting Dx: Acute hypoxemic respiratory failure (HCC ) [J96.01]Medical Hx:Past Medical History:Diagnosis Date Chronic obstruct britni pulmonary disease (HCC) Diaphragmatic hernia without obstruction and without g angrene GERD (gastroesophageal reflux disease) Hyperparathyroidism (HCC) 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 Osmolite 1.5 via PEG/J at 45 ml/hr (1620kcal 68g protein 220g CHO 53g fat 823ml free water)Allergies: Patient has no known allergies.Labs:BMP:Lab ResultsComponent Value Date/Time NA 138 03/27/2019 06:45 AM K 3.7 03/27/2019 06:45 AM CL 100 03/27/2019 06:45 AM CO2 29 2018 06:45 AM AGAP 13 03/27/2019 06:45 AM GLU 104 03/27/2019 06:45 AM BUN 9 03/27/2019 06:45 AM CREA 0.32 (L) 03/27/2019 06:45 AM GFRAA >60 03/27/2019 06:45 AM GFRNA >60 03/27/2019 06:45 AMRecent Glucose Results:Lab ResultsComponent Value Date/Time GLU 104 03/27/2019 06:45 AMNutritionally Significant Meds: solumedrol, neutraphosAssessmentLa st 3 Recorded Weights in this Encounter 03/25/19 0823Weight: 54.4 kg (120 lb)Bod y mass index is 21.95 kg/m .UBW: 135 lb chart review %UBW: 89IBW: 118 lb %IBW: 1 01Wt Readings from Last 3 Encounters:03/25/19 54.4 kg (120 lb)03/17/19 54.8 kg (120 lb 14.4 oz)02/19/19 61.2 kg (135 lb)Nutrition Focused Physical Assessment:[] Acceptabl eTemple Region Muscle Wasting-ModerateClavicle Region Muscle W asting-ModerateOrbital Region Fat Loss-ModerateOral/GI Issues:Difficulty c hewingDifficulty swallowingSkin:Intact butch score 13, poor skin integrity on previou s admissionEdema:Peripheral Vascular (WDL): Within Defined LimitsLLE: 1+(ankle)RLE: 1+(ankle)Appetite: N/A% Meal Intake:N/ANo data found.Fluid Intake:Intake/Output Lemus mmary (Last 24 hours) at 03/27/2019 1103Last data filed at 03/27/2019 0627Gross per 2 4 hourIntake 1472.5 mlOutput 700 mlNet 772.5 mlNutrition Rx: 0340-6632 kcal; 67-81 g protein (1.25-1.5 g/kg); 7851-3904 mlfluid (1ml/kcal)[based on: Kcal/kg] 30-35% Es timated Energy Needs Met: 75-100%% Estimated Protein Needs Met: 75-100%% Fluid Needs Met: 75-100%Education Needs: [x] Not indicated at this time [] Indicated at t his timeNutrition DiagnosisIncreased protein needs related to increased demand for pr otein as evidenced bypoor skin integrityIntervention:Continue current t ube feeding orderRecommend supplement(s): Prostat BID (100kcal, 15g prot ea)When f easible add 100 ml free water j6yKchld:Pt meets >75% of estimated energy and prote in needs within 3-5 daysMonitoring and EvaluationFollow EN/PN RxMonitor weightM onitor GI Statusrenal labsReadiness to add free waterDischarge Planning:Pending Cli nical Course [x] No cultural, quaker, or ethnic dietary needs identified [] Cult ural, quaker and ethnic food preferences identified and addressed [] Participate d in care plan, discharge planning/Interdisciplinary roundsJeeric Camarillo RD Name Value Range Interpretation Code Description Data Harriett rce(s) Supporting Document(s ) ID Date Data Source [id number] 03/30/2019 09:53:27 AM EST [facility] Progress NoteEmanuel Ddnmbtrhh8 y.o.Adm it Date: 03/25/2019Active Problems: Acute hypoxemic respiratory failure (HCC) (02/2019)Subjective:Patient is less lthargic, non verbalPertinent items are noted in t he History of Present Illness.Objective:Visit VitalsBP 133/69 (BP 1 Location: Left arm , BP Patient Position: At rest;Head of bedelevated (Comment degrees))Pulse 60Te mp 98.3 F (36.8 C)Resp 18Wt 52.4 kg (115 lb 9.6 oz)SpO2 98%BMI 21.14 kg/m Intake and Output:Date 03/29/19 07 - 03/30/19 0659 03/30/19 07 - 03/31/19 0659Shift 0700- 1859 3591-3141 24 Hour Total 6427-5133 8529-4173 24 Hour TotalINTAKENG/GT 300 300 Water Flush Volume (mL) (PEG/Gastrostomy Tube) 100 100 Medication Volume (PEG/G astrostomy Tube) 200 200Shift Total(mL/kg) 300(5.7) 300(5.7)OUTPUTUrine(mL/kg/hr) 1 550(2.3) 2050(3.3) 3600(2.9) Urine Voided 1550 205 3600Shift Total(mL/kg) 1550(28 .1) 2050(39.1) 3600(68.7)NET -1550 -1750 -3300Weight (kg) 55.2 52.4 52.4 52.4 52. 4 52.4Medications Reviewed:Current Facility-Administered MedicationsMedicat ion Dose Route Frequency Provider Last Rate Last Dose acetylcysteine (MUCOMYST) 100 mg/mL (10 %) nebulizer solution 400 mg 4 mLInhalation BID RT Mili Hills DO 400 mg at 03/30/19 0813 sodium chloride (NS) flush 5-10 mL 5-10 mL IntraVENous PRN Jessie Neumann MD acetaminophen (TYLENOL) solution 650 mg 650 mg Per G Tube Q4H PRN Mili Hills DO cinacalcet (SENSIPAR) tablet 60 mg 60 mg Oral KYLEIGH Y Mili Hills DO 60mg at 03/30/19 0933 [Held by provider] heparin (porcine) inj ection 5,000 Units 5,000 UnitsSubCUTAneous Q12H Mili Hills DO Stopped at 0725 lamoTRIgine (LaMICtal) tablet 50 mg 50 mg Per G Tube BID Mili Hills DO50 mg at 03/30/19 0933 valproic acid (as sodium salt) (DEPAKENE) 250 mg/5 mL (5 m L) oral solution 750mg 750 mg Per G Tube Q12H Mili Hills DO 750 mg at 0932 methylPREDNISolone (PF) (SOLU-MEDROL) injection 40 mg 40 mg Int raVENous G3XBhwmgyMili buchanan DO 40 mg at 03/30/19 0614 multivit-folic acid-herba l 275 (WELLESSE PLUS) oral liquid 30 mL 30 mL Per GTube DAILY Reinier Mili, DO 30 mL at 03/30/19 0939 ALPRAZolam (XANAX) tablet 0.25 mg 0.25 mg Per G Tube QPM N Maryann buchananley, DO0.25 mg at 03/29/19 1703 cefepime (MAXIPIME) 1 g in 0.9% sodium c hloride (MBP/ADV) 50 mL MBP 1 gIntraVENous Q8H Mili Hills, DO 100 mL/hr at 0829 1 g at 829 albuterol-ipratropium (DUO-NEB) 2.5 MG-0 .5 MG/3 ML 3 mL Nebulization Q6H RTMili Hills, DO 3 mL at 03/30/19 0813 van comycin (VANCOCIN) 1,000 mg in 0.9% sodium chloride 250 mL IVPB 1,000 mgIntraVENou s Q12H Natasha Dudley MD 125 mL/hr at 03/30/19 0940 1,000 mg at105/31/18 0940 budesonid e (PULMICORT) 500 mcg/2 ml nebulizer suspension 500 mcg NebulizationBID RT G Pablo zacarias MD 500 mcg at 03/30/19 0813Physical Exam:Physical Exam:General: Alert, cooperative, no distress, appears stated age.Eyes: Conjunctivae/corneas c lear.Neck: Supple, symmetrical, trachea midline, no adenopathy, thyroid: noenlar gement/tenderness/nodules, no carotid bruit and no JVD.Lungs: Clear to auscultatio n bilaterally.Heart: Regular rate and rhythm, S1, S2 normal, no murmur, click, rub or gallop.Abdomen: Soft, non-tender. Bowel sounds normal. No masses, No orga nomegaly.Extremities: Extremities normal, atraumatic, no cyanosis or edema,Pulses: 2+ and symmetric all extremities.Skin: Skin color, texture, turgor normal. No rashes or lesionsData Review:Recent Results (from the past 24 hour(s))GLUCOSE, POC Collect ion Time: 03/29/19 11:35 AMResult Value Ref Range Glucose, bedside 153 (H) 65 - 110 MG/DLGLUCOSE, POC Collection Time: 03/30/19 12:17 AMResult Value Ref Range Glucose, bedside 99 65 - 110 MG/DLRENAL FUNCTION PANEL Collection Time: 03/30/19 5:19 AMResult Value Ref Range Sodium 134 (L) 136 - 145 mmol/L Potassium 4.8 3.5 - 5.1 mmol/L Ch loride 95 (L) 98 - 107 mmol/L CO2 34 (H) 21 - 32 mmol/L Anion gap 10 10 - 20 mmol/L Gl ucose 99 74 - 106 mg/dL BUN 12 7 - 18 mg/dL Creatinine 0.45 (L) 0.70 - 1.30 mg/dL GF R est AA >60 >60 ml/min/1.73m2 GFR est non-AA >60 >60 ml/min/1.73m2 Calcium 10.5 (H) 8 .5 - 10.1 mg/dL Phosphorus 3.1 2.5 - 4.9 mg/dL Albumin 2.9 (L) 3.5 - 4.7 g/dLMAGN ESIUM Collection Time: 03/30/19 5:19 AMResult Value Ref Range Magnesium 2.2 1 .6 - 2.6 mg/dLCBC WITH AUTOMATED DIFF Collection Time: 03/30/19 5:19 AMResult Value Ref Range WBC 10.5 4.8 - 10.6 K/uL RBC 4.57 (L) 4.70 - 6.00 M/uL HGB 14.4 14.0 - 18.0 g/dL HCT 42.5 42.0 - 52.0 % MCV 93.0 81.0 - 94.0 FL MCH 31.5 27.0 - 35.0 PG M CHC 33.9 30.7 - 37.3 g/dL RDW 16.0 (H) 11.5 - 14.0 % PLATELET 346 130 - 400 K/uL MPV 1 0.2 9.2 - 11.8 FL NEUTROPHILS 88 (H) 48.0 - 72.0 % LYMPHOCYTES 9 (L) 18.0 - 40.0 % M ONOCYTES 3 2.0 - 12.0 % EOSINOPHILS 0 0.0 - 7.0 % BASOPHILS 0 0.0 - 3.0 % ABS. NEUTR OPHILS 9.2 (H) 1.5 - 6.6 K/UL ABS. LYMPHOCYTES 0.9 (L) 1.5 - 3.5 K/UL ABS. MONOCYTES 0.3 0.0 - 1.0 K/UL ABS. EOSINOPHILS 0.0 0.0 - 0.7 K/UL ABS. BASOPHILS 0.0 0. 0 - 0.1 K/UL DF AUTOMATED IMMATURE GRANULOCYTES 0 0.0 - 2.0 %GLUCOSE, POC C ollection Time: 03/30/19 6:56 AMResult Value Ref Range Glucose, bedside 98 65 - 110 M G/DLImaging:No results found.Impression:Active Hospital Problem s Diagnosis Date Noted Acute hypoxemic respiratory failure (HCC) 03/25/2019 Hyponatremia, correctedPlan:Continue IV antibioticsStop ivfMinimal free waterRep lace vx0[facility], MDDecember 2018 Name Value Range Interpretation Code Description Data Harriett rce(s) Supporting Document(s ) ID Date Data Source [id number] 03/30/2019 09:09:28 AM EST [facility] ID Progress Note03/30/2019Subjective:Pat ient with history of MR,COPD,recurrent aspiration pneumonia,dysphagia s/p pegpl acement was transferred from the long-term for respiratory distress,lowoxygen satur ation of 77% on 4 L nasal canula.Patient is non verbal,more awake today butunable to provide any historyAwake non verbal,unale to provide historyWbc wnlBlood culture no g rowth.AfebrileAwaiting Surgical J tube placement as current on with leak and cr ack in theinlet portObjective:Review of SystemsUnable to provide.Vitals:Patient Vitals for the past 24 hrs: BP Temp Pulse Resp SpO2 Gpggvx42/16/19 0753 133/69 98. 3 F (36.8 C) 60 18 98 % -03/30/19 0558 - - - - - 52.4 kg (115 lb 9.6 oz)03/30/19 04 01 157/88 98.2 F (36.8 C) 88 18 97 % -03/30/19 0113 - - - - 96 % -03/30/19 00 22 102/76 98.1 F (36.7 C) 86 18 98 % -03/29/19 2313 - - - - 96 % -03/29/19 20 46 - - - - 93 % -03/29/192000 158/74 98.1 F (36.7 C) 87 18 90 % -03/29/19 1537 129/ 90 97.6 F (36.4 C) 80 18 93 % -03/29/19 1116 130/81 98.1 F (36.7 C) 63 18 97 % -Tmax: Temp (24hrs), Av.1 F (36.7 C), Min:97.6 F (36.4 C), Max:98.3 F(36.8 C)Physical Exam:General: Awake, nonverbal cooperative, no distress, appears stated age.Eyes: Conjunctivae/corneas clear. PERRLNeck: Supple, symmetrical, trachea midline, no adenopathyLungs: Bilateral breath sounds with basal crackles..Heart : Regular rate and rhythm, S1, S2 normal, no murmurAbdomen: Soft, non-tender. Bowel sounds normal. No masses, Noorganomegaly.peg+Back: No CVA tender ness.Extremities: Chronic lymphedema, no cyanosisPulses: 2+ and symmetric all ext remities.Skin: Skin color, texture, turgor normal. No rashes or lesionsCurrent Faci lity-Administered MedicationsMedication Dose Route Frequency acetylcysteine (MUCOMYS T) 100 mg/mL (10 %) nebulizer solution 400 mg 4 mLInhalation BID RT sodium chloride (NS) flush 5-10 mL 5-10 mL IntraVENous PRN acetaminophen (TYLENOL) solution 650 mg 650 mg Per G Tube Q4H PRN cinacalcet (SENSIPAR) tablet 60 mg 60 mg Oral KYLEIGH Y [Held by provider] heparin (porcine) injection 5,000 Units 5,000 UnitsSubCUT Aneous Q12H lamoTRIgine (LaMICtal) tablet 50 mg 50 mg Per G Tube BID valproic acid (as sodium salt) (DEPAKENE) 250 mg/5 mL (5 mL) oral solution 750mg 750 mg Per G Tu be Q12H methylPREDNISolone (PF) (SOLU-MEDROL) injection 40 mg 40 mg Int raVENous Q6H multivit-folic acid-herbal 275 (WELLESSE PLUS) oral liquid 30 mL 30 mL Per GTube DAILY ALPRAZolam (XANAX) tablet 0.25 mg 0.25 mg Per G Tube QPM cefepim e (MAXIPIME) 1 g in 0.9% sodium chloride (MBP/ADV) 50 mL MBP 1 gIntraVENous Q8H albuterol-ipratropium (DUO-NEB) 2.5 MG-0.5 MG/3 ML 3 mL Nebulization Q6H RT vanco mycin (VANCOCIN) 1,000 mg in 0.9% sodium chloride 250 mL IVPB 1,000 mgIntraVENou s Q12H budesonide (PULMICORT) 500 mcg/2 ml nebulizer suspension 500 mcg Nebulizati onBID RTLabs:Recent Labs 03/29/1904WBC 10.5 8.4 9. 1HGB 14.4 11.7* 11.6*PLT 346 308 301BUN 12 12 15CREA 0.45* 0.33* 0.39*Cultures:Lab Res ultsComponent Value Date/Time Culture result: NO GROWTH 5 DAYS 03/25/2019 03:10 AM Cul ture result: NO GROWTH 5 DAYS 03/25/2019 02:55 AM Culture result: NO GROWTH 5 DAY S 03/11/2019 04:14 AM Culture result: NO GROWTH 5 DAYS 03/11/2019 04:14 AMRadiolo gy:No results found.Assessment: Recurrent aspiration pneumonia. Acute COPD exacer bation Acute hypercapnic respiratory failure. Dysphagia s/p peg placement.. Atelectasis R/o sepsis. Plan:1. Continue IV cefepime and vancomycin2. Follow culture s.Monica Gomez, MDDecember [id number] AM Name Value Range Interpretation Code Description Data Harriett rce(s) Supporting Document(s ) ID Date Data Source [id number] 03/30/2019 09:02:20 AM EST [facility] GI PROGRESS NOTENAME: Evelio Shukla hbeinDOB: 1950MRN: [id number]:Faulty J-tube, crack i n inlet port leaking, Cannot use it. Discussedpossibility of having surgeon p evan separate J-tube site, less prone to issuesthan this device.Objective:abd sof t.VITALS:Last 24hrs VS reviewed since prior progress note. Most recent are:Visit Vit alsBP 133/69 (BP 1 Location: Left arm, BP Patient Position: At rest;Head of bedele vated (Comment degrees))Pulse 60Temp 98.3 F (36.8 C)Resp 18Wt 52.4 kg (115 lb 9.6 o z)SpO2 98%BMI 21.14 kg/m Intake/Output Summary (Last 24 hours) at 03/30/2019 08 59Last data filed at 03/30/2019 0630Gross per 24 hourIntake 300 mlOutput 3600 mlNet -3 300 mlPHYSICAL EXAM:General: Alert, in no acute distressHEENT: Anicteric sclerae.L ungs: CTA Bilaterally.Heart: Regular rhythm,Abdomen: Soft, Non diste nded, Non tender. (+)Bowel sounds, no HSMExtremities: No c/c/eNeurologic: CN 2-12 gi, No acute neurological distressPsych: Poor insight. Not anxious nor agitated .Lab Data Reviewed:Recent Labs 03/29/1904WBC 10.5 8.4HGB 14.4 11.7*HC T 42.5 35.8*PLT 346 308Recent Labs 03/29/1904NA 134* 135*K 4 .8 3.9CL 95* 98CO2 34* 35*BUN 12 12CREA 0.45* 0.33*GLU 99 121*PHOS 3.1 2.8CA 10.5* 9.8 Recent Labs 03/29/1904LB 2.9* 2.4* Pati ent Active Problem ListDiagnosis Code Parae sophageal hiatal hernia K44.9 COPD (chronic obstructive pulmonary disease) ([facility]) J44 .9 Acute respiratory distress R06.03 Pneumonia J18.9 COPD exacerbation ([facility]) J44.1 Sepsis due to undetermined organism ([facility]) A41.9 Generalized anxiety disorde r F41.1 Acute respiratory failure with hypoxia ([facility]) J96.01 Pneumonia involvin g right lung J18.9 Hyponatremia E87.1 SOB (shortness of breath) R06.02 Pressure i njury of right heel, stage [address]) L89.612 Leg wound, right, initial encounter S81. 801A Acute hypoxemic respiratory failure ([facility]) J96.01Assessment: Vomiting and as piration when fed into stomach Dysphagia COPDPlan: Discussed with HCP, Will hav e surgeon look at pt to see if Surgical J-tubecan be placed, If not then will h ave to put in new J over PEG (new tube justordered - none in endo stock today s o cannot place until arrives on 03-31.)Signed By: Diogo Collins MD 03/30/2019 8:59 AM Name Value Range Interpretation Code Description Data Harriett rce(s) Supporting Document(s ) ID Date Data Source [id number] 03/30/2019 08:12:01 AM [facility] Problem: Pressure Injury - Risk ofGoal: *Prevention of pressure injuryDescriptionDocument Butch Scale a nd appropriate interventions in the flowsheet.Outcome: Progressing Towards G oalNote: Pressure Injury Interventions:Sensory Interventions: Ass ess changes in LOC, Assess need for specialty bedMoisture Interventions: Absorbent und erpads, Apply protective barrier, creamsand emollients, Internal/External urinary de vicesActivity Interventions: Assess need for specialty bedMobility Interventions: Ass ess need for specialty bed, Float heels, Turn andreposition approx. every two hours(pi llow and wedges)Nutrition Interventions: Discuss nutritional consult with provide rFriction and Shear Interventions: Foam dressings/transparent film/skin sealants ,Apply protective barrier, creams and emollientsProblem: Patient Education: Go to Patient Education ActivityGoal: Patient/Family EducationOutcome: Progres sing Towards Goal Name Value Range Interpretation Code Description Data Harriett rce(s) Supporting Document(s ) ID Date Data Source [id number] 03/30/2019 08:10:46 AM EST [facility] As per Irais PITTS in endoscopy, pt is not going for revision of PEG tube today andcan receive medications and restart feedings . Will continue to monitor pt Name Value Range Interpretation Code Description Data Harriett rce(s) Supporting Document(s ) ID Date Data Source [id number] 03/30/2019 07:08:19 AM [facility] Review BIPAP settings, alarms and skin a dhesive With next shift RT [facility] Name Value Range Interpretation Code Description Data Harriett rce(s) Supporting Document(s ) ID Date Data Source [id number] 03/30/2019 07:25:33 AM [facility] Name Value Range Interpretation Description Data Sup porting Code Source(s) Document(s ) Glucose 98 MG/DL 65-110 [facility] - Good [Mass/volume] Taoist in Blood by [facility] Automated test strip ID Date Data Source [id number] 03/30/2019 07:34:40 AM [facility] Name Value Range Interpretation Description Data Sup porting Code Source(s) Document(s ) Leukocytes 10.5 4.8-10.6 [facility] - [#/volume] in K/uL Good Blood by [facility] Erythrocytes 4.57 4.70-6.0 Below low normal [facility] - [#/volume] in M/uL 0 Good Blood by [facility] Hemoglobin 14.4 14.0-18. [facility] - [Mass/volume] in g/dL 0 Good Blood [facility] Hematocrit 42.5 % 42.0-52. [facility] - [Volume 0 Good Fraction] of [facility] Blood by Hospital Automated count Erythrocyte mean 93.0 FL 81.0-94. [facility] - corpuscular 0 Good volume [Entitic Taoist volume] by Hospital Automated count Erythrocyte mean 31.5 PG 27.0-35. [facility] - corpuscular 0 Good hemoglobin Taoist [Entitic mass] [facility] by Automated count Erythrocyte mean 33.9 30.7-37. [facility] - corpuscular g/dL 3 Good hemoglobin [facility] [Mass/volume] by Automated count Erythrocyte 16.0 % 11.5-14. Above high normal [facility] - distribution 0 Good width [Ratio] by [facility]ist Automated count Hospital Platelets 346 K/uL 130-400 [facility] - [#/volume] in [facility] Blood by Taoist Automated count [facility] Platelet mean 10.2 FL 9.2-11.8 [facility] - volume [Entitic Good volume] in [facility] by Automated Hospital count Segmented 88 % 48.0-72. Above high normal [facility] - neutrophils/100 0 Good leukocytes in [facility] Lymphocytes/100 9 % 18.0-40. Below low normal [facility] - leukocytes in 0 [facility] Monocytes/100 3 % 2.0-12.0 [facility] - leukocytes in [facility] Eosinophils/100 0 % 0.0-7.0 [facility] - leukocytes in [facility] Basophils/100 0 % 0.0-3.0 [facility] - leukocytes in [facility] Segmented 9.2 K/UL 1.5-6.6 Above high normal [facility] - neutrophils Good [#/volume] in [facility] Lymphocytes 0.9 K/UL 1.5-3.5 Below low normal [facility] - [#/volume] in [facility] Monocytes 0.3 K/UL 0.0-1.0 [facility] - [#/volume] in [facility] Eosinophils 0.0 K/UL 0.0-0.7 [facility] - [#/volume] in [facility] Basophils 0.0 K/UL 0.0-0.1 [facility] - [#/volume] in [facility] Differential [facility] - cell count [facility] method [facility] Immature 0 % 0.0-2.0 [facility] - granulocytes/100 Good leukocytes in [facility] by Hospital Automated count ID Date Data Source [id number] 03/30/2019 07:03:20 AM EST [facility] - [facility] Name Value Range Interpretation Description Data Sup porting Code Source(s) Document(s ) Sodium 134 136-145 Below low normal [facility] - Good [Moles/volume] mmol/L [facility] in Serum or Hospital Plasma Potassium 4.8 3.5-5.1 [facility] - Good [Moles/volume] mmol/L [facility] in Serum or Hospital Plasma Chloride 95 98-107 Below low normal [facility] - Good [Moles/volume] mmol/L [facility] in Serum or Hospital Plasma Carbon 34 21-32 Above high normal [facility] - Good dioxide, total mmol/L [facility]ist [Moles/volume] Hospital in Serum or Plasma Anion gap in 10 10-20 [facility] - Good Serum or mmol/L [facility] Plasma Hospital Glucose 99 mg/dL 74-106 [facility] - Good [Mass/volume] [facility] in Serum or Hospital Plasma Urea nitrogen 12 mg/dL 7-18 [facility] - Good [Mass/volume] [facility] in Serum or Hospital Plasma Creatinine 0.45 0.70-1.3 Below low normal [facility] - Good [Mass/volume] mg/dL 0 [facility] in Serum or Hospital Plasma Glomerular >60 [facility] - Good filtration Taoist rate/1.73 sq M Hospital predicted among blacks [Volume Rate/Area] in Serum or Plasma by Creatinine-bas ed formula (MDRD) Glomerular >60 [facility] - Good filtration Taoist rate/1.73 sq M Hospital predicted among non-blacks [Volume Rate/Area] in Serum or Plasma by Creatinine-bas ed formula (MDRD) Calcium 10.5 8.5-10.1 Above high normal [facility] - Good [Mass/volume] mg/dL [facility] in Serum or Hospital Plasma Phosphate 3.1 2.5-4.9 [facility] - Good [Mass/volume] mg/dL [facility] in Serum or Hospital Plasma Albumin 2.9 g/dL 3.5-4.7 Below low normal [facility] - Good [Mass/volume] Taoist in Serum or Hospital Plasma by Bromocresol purple (BCP) dye binding method ID Date Data Source [id number] 03/30/2019 07:03:20 AM EST [facility] Name Value Range Interpretation Description Data Sup porting Code Source(s) Document(s ) Magnesium 2.2 mg/dL 1.6-2.6 [facility] - Good [Mass/volume] Taoist in Serum or Hospital Plasma ID Date Data Source [id number] 03/30/2019 12:35:38 AM EST [facility] Name Value Range Interpretation Description Data Sup porting Code Source(s) Document(s ) Glucose 99 MG/DL 65-110 [facility] [Mass/volume] Taoist in Blood by [facility] Automated test strip ID Date Data Source [id number] 03/29/2019 07:49:13 PM [facility] Bedside and Verbal shift change report carol pham to Anastasiya RN (oncoming nurse) Sandoval RN (offgoing nurse). Report included the following information SBAR,Kardex, MAR and Recent Results. Name Value Range Interpretation Code Description Data Harriett rce(s) Supporting Document(s ) ID Date Data Source [id number] 03/29/2019 06:04:45 PM [facility] PULMONARY/ CCM- Consult NotePatient: Ivelisse Carlin Sex: male DOA: 03/25/2019Date of : [birth year] Age: 68 y.o. LOS: LOS: 4 daysHPI: step down.Evelio Carlin is a 68 y.o. 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 Authorizing Providerheparin sodium,porcine (HEPARIN, PORCINE,) 5,000 unit/mL injection 1 mL bySubCUTAneous route every twelve (12) hours every twelve (12 ) hours. 03/17/19Mili Hills DOmultivitamin (MULTI-DELYN, WELLESSE) l iqd 5 mL by Per G Tube route daily.03/17/19 Mili Hills DOacetaminophen (TYLENO L) 32MG/ML soln solution Take 20.3 mL by mouth every four(4) hours as needed for Pain or Fever. 03/17/19 Mili Hills DOvalproic acid, as sodium salt, (DEPAKE NE) 250 mg/5 mL (5 mL) soln oral [id number] mg by Per G Tube route every twelve (12) hours. Provider, Edieacetylcysteine (MUCOMYST) 100 mg/mL (10 %) nebulizer so lution Take 4 mL byinhalation two (2) times a day. Provider, Edieclorazepate (TRANXENE) 3.75 mg tablet 1 Tab by Per G Tube route nightly. MaxDaily Amount: 3.75 mg. 12/30/18 Mili Hills DOcinacalcet (SENSIPAR) 30 mg tablet Take 2 Tabs by m outh daily.Patient taking differently: 30 mg daily. Via G tube 12/30/18 Maryann HillsDOlamoTRIgine (LAMICTAL) 25 mg tablet 2 Tabs by Per G Tube route two (2) times a day. 12/30/18 Mili Hills DOalbuterol-ipratropium (DUO-NEB) 2.5 mg -0.5 mg/3 ml nebu 3 mL by Nebulizationroute every six (6) hours. Every 6 hours while awakePatient taking differently: 3 mL by Nebulization route every four (4) hours asneeded. Every 6 hours while awake 12/30/18 Mili Hills DObudesonide (PULMICORT ) 0.5 mg/2 mL nbsp 2 mL by Nebulization route two (2) timesa day. 12/30/18 Maryam Hills DONo Known AllergiesPast Surgical History:Procedure Laterality Date HX GA STROSTOMY PEG- replaced 11/2018History reviewed. No pertinent family history.So cial HistorySocioeconomic History Marital status: SINGLE Spouse name: Not on file Number of children: Not on file Years of education: Not on file Highest educatio n level: Not on fileTobacco Use Smoking status: Never Smoker Smokeless tobacco: Never UsedSubstance and Sexual Activity Alcohol use: No Drug use: NoReview of S ystemsPertinent items are noted in the History of Present Illness.Physical Exam :Current medications:Current Facility-Administered Medications: joan tylcysteine (MUCOMYST) 100 mg/mL (10 %) nebulizer solution 400 mg, 4 mL,Inhalati on, BID RT, Mili Hills DO, 400 mg at 03/29/19 08 sodium chloride (NS) flu sh 5-10 mL, 5-10 mL, IntraVENous, PRN, Jessie Neumann MD acetaminophen (TYLENOL) solution 650 mg, 650 mg, Per G Tube, Q4H PRN, Mili Hills DO cina calcet (SENSIPAR) tablet 60 mg, 60 mg, Oral, DAILY, Mili Hills DO,60 mg at 03/15 08/31 09 heparin (porcine) injection 5,000 Units, 5,000 Units, SubCUTAneous, Q12H,Mili Brooks DO, 5,000 Units at 03/29/19 09 lamoTRIgine (LaMICtal) tablet 50 mg, 50 mg, Per G Tube, BID, Mili Hills DO, 50 mg at 03/29/19 09 seema proic acid (as sodium salt) (DEPAKENE) 250 mg/5 mL (5 mL) oral [id number] mg, 750 mg, Per G Tube, Q12H, Mili Hills DO, 750 mg at 03/29/19 09 methylPREDNISo lone (PF) (SOLU-MEDROL) injection 40 mg, 40 mg, IntraVENous,Q6H, Mili Hills DO , 40 mg at 03/29/19 170 multivit-folic acid-herbal 275 (WELLESSE PLUS) oral liq uid 30 mL, 30 mL, PerG Tube, DAILY, Mili Hills DO, 30 mL at 03/29/19 09 AL PRAZolam (XANAX) tablet 0.25 mg, 0.25 mg, Per G Tube, QPM, Mili Hills DO, 0.25 mg at 03/29/19 170 cefepime (MAXIPIME) 1 g in 0.9% sodium chloride (MBP/ADV) 50 mL MBP, 1 g,IntraVENous, Q8H, Mili Hills DO, Last Rate: 100 mL/hr at 03/29/19 160 6, 1g at 03/29/19 1606 albuterol-ipratropium (DUO-NEB) 2.5 MG-0 .5 MG/3 ML, 3 mL, Nebulization, Q6HRT, Mili Hills, , 3 mL at 03/29/19 14 51 vancomycin (VANCOCIN) 1,000 mg in 0.9% sodium chloride 250 mL IVPB, 1,000 mg,In traVENous, Q12H, Natasha Dudley MD, Last Rate: 125 mL/hr at 03/29/19 0900,1,000 mg at 1 05/30/18 0900 budesonide (PULMICORT) 500 mcg/2 ml nebulizer suspension, 500 mcg,N ebulization, BID RT, Pablo Flores MD, 500 mcg at 03/29/19 0826DataVisit VitalsBP 1 (BP 1 Location: Left arm, BP Patient Position: At rest)Pulse 80Temp 97.6 F ( 36.4 C)Resp 18Wt 55.2 kg (121 lb 12.8 oz)SpO2 93%BMI 22.28 kg/m Intake and Out put:Date 03/28/19699 - 03/29/19 0603/29/19 07 - 03/30/19 0659Shift 0700- 1859 8829-9856 24 Hour Total 2056-4911 9332-9994 24 Hour TotalINTAKEI.V.(mL/kg/ hr) 300(0.5) 300(0.2) Volume (cefepime (MAXIPIME) 1 g in 0.9% sodium chloride ( MBP/ADV) 50 mL MBP)50 50 Volume (vancomycin (VANCOCIN) 1,000 mg in 0.9% sodium chlor wade 250 mL IVPB)250 250NG/GT 100 1050 1150 Water Flush Volume (mL) (PEG/Gastrostomy Tube) 100 100 Medication Volume (PEG/Gastrostomy Tube) 100 100 Intake (ml) (PEG/Gastrostomy Tube) 950 950Shift Total(mL/kg) 100(1.8) 1350(24.4) 1450(26 .2)OUTPUTUrine(mL/kg/hr) 1600(2.4) 1600(1.2) 1550 1550 Urine Voided 1600 1600 1550 1550Shift Total(mL/kg) 1600(28.9) 1600(29) 1550(28.1) 1550(28.1)NET -1500 1350 -15 0 -1550 -1550Weight (kg) 55.3 55.2 55.2 55.2 55.2 55.2Pulse OX:SpO2 Readings from [place] Encounters:03/29/19 93%03/17/19 92%02/19/19 96%02/18/19 92%01/24/19 93%0 12/30/18 96%@LASTSAO2(6)@PHYSICAL EXAM:General: Lethargic,responding.He ad: Normocephalic, without obvious abnormality, atraumatic.Eyes: Conjunct ivae clear, anicteric sclerae. Pupils are equalNose: Nares normal. No drainage or sinus tenderness.Throat: Lips, mucosa, and tongue normal. No ThrushNeck: Supp le, symmetrical, no adenopathy, thyroid: non tender no carotid bruit and no JVD.Back : Symmetric, No CVA tenderness.Lungs: Scattered rhonchi,Chest wall: No tender ness or deformity. No Accessory muscle use.Heart: Regular rate and rhythm, n o murmur, rub or gallop.Abdomen: Soft, non-tender. Not distended. Bowel sounds normal. No massesExtremities: Extremities normal, atraumatic, No cyanosis. No deepthi ma. No clubbingSkin: Texture, turgor normal. No rashes or lesions. Not Jaund icedLymph nodes: Cervical, supraclavicular normal.Psych: Good insight. Not depres sed. Not anxious or agitated.Neurologic: EOMs intact. No facial asymmetry. No aph greg or slurred speech.Most recent labs:Recent Labs 03/27/1906WBC 8.4 9.1 13.2*HGB 11.7* 11.6* 11.6*HCT 35.8* 34.4* 35.8*PLT 308 301 349Recent Labs 03/28/1906NA 135* 138 138K 3.9 3.9 3.7 CL 98 103 100CO2 35* 29 29GLU 121* 134* 104BUN 12 15 9CREA 0.33* 0.39* 0.32*CA 9 .8 9.5 9.6MG 2.0 2.0 1.8PHOS 2.8 2.3* 1.8*ALB 2.4* 2.2* 2.4*No results for input(s): P H, PCO2, PO2, HCO3, FIO2 in the last 72 hours.ABG:No results for input(s): PH, P CO2, PO2, HCO3, FIO2 in the last 72 hours.Cultures:No results found for: VINOD SLab ResultsComponent Value Date/Time Culture result: NO GROWTH 4 DAYS 03/25/2019 03:1 0 AM Culture result: NO GROWTH 4 DAYS 03/25/2019 02:55 AM Culture result: NO G ROWTH 5 DAYS 03/11/2019 04:14 AM Culture result: NO GROWTH 5 DAYS 03/11/2019 04:1 4 AM Culture result: NO GROWTH 5 DAYS 02/08/2019 05:19 PM Culture result: NO G ROWTH 5 DAYS 02/08/2019 05:00 PM Culture result: NO GROWTH 5 DAYS 01/21/2019 11:3 0 PM Culture result: NO GROWTH 2 DAYS 01/21/2019 11:15 PM Culture result: NO G ROWTH 5 DAYS 01/21/2019 11:00 PM Culture result: NO GROWTH 1 DAY 01/10/2019 08:58 AM Culture result: NO GROWTH 5 DAYS 01/10/2019 07:55 AM Culture result: NO G ROWTH 5 DAYS 01/10/2019 07:40 AM Culture result: NO GROWTH 5 DAYS 12/29/2018 11:2 3 AM Culture result: NO GROWTH 5 DAYS 12/29/2018 11:00 AM Culture result: 10,0 00 to 50,000 COLONIES/mL KLEBSIELLA PNEUMONIAE (A)12/29/2018 11:00 AM Cultur e result: 50,000-100,000 COLONIES/mL PSEUDOMONAS AERUGINOSA (A)12/29/2018 11: 00 AM Culture result: (A) 12/29/2018 11:00 AM 10,000 to 50,000 COLONIES/mL STAPHYLOCO CCUS EPIDERMIDIS Culture result: NO GROWTH 2 DAYS 12/24/2018 09:45 AM Culture result: NO GROWTH 5 DAYS 12/23/2018 12:00 PM Culture result: NO GROWTH 5 DAYS 12/23/2018 11:4 0 AM Culture result: NO GROWTH 4 DAYS 12/19/2018 12:30 PM Culture result: NO G ROWTH 4 DAYS 12/19/2018 12:30 PM Culture result: NO GROWTH 1 DAY 12/12/2018 08:04 PM Culture result: NO GROWTH 5 DAYS 12/12/2018 07:40 PM Culture result: NO G ROWTH 5 DAYS 12/12/2018 07:40 PM Culture result: NO GROWTH 2 DAYS 11/20/2018 09:0 0 AM Culture result: NO GROWTH 5 DAYS 11/07/2018 08:10 PM Culture result: NO G ROWTH 5 DAYS 11/07/2018 08:00 PMImages:Cta Chest W Or W Wo ContResult Date: 11/09/19 19Examination: CTA Chest ? PE angiography History: Hypoxia; rule out pneumoniavers us pulmonary embolism Priors: None Technique: Low-dose, multiplanar,helica l CTA chest was performed with bolus IV injection from lung apices tobases. 3D- reformatted images were obtained and reviewed on a dedicated viewingworkstation and di rectly supervised. Contrast: A total of 71 mL of Isovue-370was administered intravenou sly for this procedure. Findings: No evidence ofpulmonary embolism is seen. T here is decreased size of the right hemithorax fromchronic scarring and retr action with mediastinal shift left to right.Additional area of consolidation i s seen in the right lower lobe and suggestssuperimposed pneumonia with subs egmental atelectasis. Subsegmental atelectasisis also noted in the left jorge g base, with pleural parenchymal scarring. Lowlung volumes are seen. No pneumothora x seen. Aorta normal in caliber withoutaneurysm or dissection. Mediastin um no adenopathy. Mediastinal shift is seen inthe left and right as a result of chr onic changes in the right hemithorax.Heart shows no chamber enlargement or pericard ial effusion. No acute fracturesseen in the bony thorax, sternum, manubrium and rib cage. Multiple compressiondeformities are seen in the mid and lower thoracic spine , with superimposedspondyloarthropathy. Cannot exclude acute fracture.Impression : No evidence of pulmonary embolism Right lower lobe pneumoniasuggested. Incidenta l scarring and retraction in the right hemithorax fromremote/chronic inflammato ry disease and/or trauma. Bibasilar subsegmentalatelectasis. Report Electron ically Signed By: Pawel Zafar M.D. -11/08/2018 12:40 AMXr Chest PortResult D ate: 11/07/2018XR CHEST PORT CLINICAL INDICATION PROVIDED:. "sob." COMPARISON: . 09/26/2015.FINDINGS:. The pericardial/cardiac silhouette is enlarg ed in the transversedimension. There is no pulmonary vascular congestion or interst itial edema.Linear density in the left lung base and faint densities in the right mi d tolower lung likely represent atelectasis. There is no lobar consolidation oreffusi on. There is no pneumothorax.IMPRESSION:. Bilateral lower lung atelectasis. No donna dence of consolidation oreffusion.Assessment/PlanActive Problem s: Acute hypoxemic respiratory failure (HCC) (03/25/2019) Acute resp failure combined pneumonia recurrent acute copd exacerbationPLAN,Monitoring,bipap prn fo r resp distress,abx as per id.Steroid nebbipap prn and at night.Gi/renal follo w up noted.NebGi /dvt prophylaxis.D/w nursing staff.Stella Hamilton, [employer] 2018 The billing code submitted in association with this evaluation also includes theti me to review patient's prior records, communicate with the physician team,obta in corroborating data, and discuss the risk and benefits of the proposedmanagement p frantz with the patient and their family >30 minutes. Name Value Range Interpretation Code Description Data Harriett rce(s) Supporting Document(s ) ID Date Data Source [id number] 03/29/2019 02:20:35 PM [facility] Progress NotePatient: Evelio Carlin Sex: male DOA: 03/25/2019Date of : 1950 Age: 68 y.o. :[id number]:Reyes Carlin is 68 y.o. male with pulling off his bipap mask overnight withO2 desatura tion. He was placed on Mitts Restraints and is currently wearingNRM., which he is ab le to brush off with the mitts.He has an occasional cough, but having difficulty expectorating.He is s/p EGD with positioning of jenunal feeding tube and endoclipping on03/26/19Pt with TF leaking and was found with crack in the tube.Nursing staff was instructed by santiago weldon to use the side port. He is sandhya TF.[facility]. He has medical history of Dysphagia, recurrent aspiration pneumonia, s/p g/tc onversion to jtube on 02/07/19, hyperlipidemia,hyperparathyroid,unspecif ied,seizure, large hiatal hernia, anxiety disorder, personal history ofpulmonary e mbolus,COPD, GERD, Schizophrenia unspecified, Kyphosis, Parkinsondisease, Severe inte llectual disabilities.and Generalized muscle weakness.As per the long-term transfe r record, the patient was transferred to the EDfor Hypoxia, he was found with O2 SAT 77 % on O2 NC 4 LPM and tachypneic. Hewas later placed on NRBM. Patient has a vivian gged jtube and the long-term hasbeen using the gtube site for feedings and administ ration of medications.Pt was seen at [facility] by fatemeh Shabazz and plans were for jtube pl acement, that wasscheduled for today. The patient is nonverbal and unable to parti cipate with his history.Patient was admitted with encounter diag of Acute Hypercapnei c and Hypoxemicrespiratory failure and aspiration pneumonia. 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 Pupils are equalNeck: Supple, symmetrical, no adenopathy, no carotid bruit and no JVD.Lungs: Clear to auscultation bilaterally. No Wheezing o r Rhonchi. No rales.Chest wall: No Accessory muscle use.Heart: Regular rate and rhy thm, no murmur, or rub.Abdomen: positive g/t. Not distended. Bowel sounds jazzmine l. No massesExtremities: Extremities normal, atraumatic, No cyanosis. No edema. No c lubbingSkin: Warm and dry. No rashes or lesions. Not JaundicedLymph nodes: Cerv ical, supraclavicular normal.Psych: Not agitated.Neurologic: EOMs intact. No fac ial asymmetry. Non verbal. Generalized weakness.Alert and Awake.Intake and Outp ut:Current Shift: No intake/output data recorded.Last three shifts: 03/27 1901 - 03/29 0700In: 2925 [I.V.:550]Out: 1600 [Urine:1600]Lab/Data Reviewed:Recent Day s:Recent Labs 03/28/1906WBC 8.4 9.1 13.2*HGB 11.7* 1 1.6* 11.6*HCT 35.8* 34.4* 35.8*PLT 308 301 349Recent Labs 60 0 NA 135* 138 138K 3.9 3.9 3.7CL 98 103 100CO2 35* 29 29GLU 121* 134* 104 BUN 12 15 9CREA 0.33* 0.39* 0.32*CA 9.8 9.5 9.6MG 2.0 2.0 1.8PHOS 2.8 2.3* 1.8*ALB 2 .4* 2.2* 2.4*No results for input(s): PH, PCO2, PO2, HCO3, FIO2 in the last 72 tammy rs.CULTURE, BLOOD [[id number]] (Order [id number])MicrobiologyDate: 03/25/2019 D epartment: [facility] Med Surg Released By/Authorizing:Jessie Neumann MD (auto-released)Specimen Information: Blood Component Value Flag Ref Range Units Sta tusSpecial Requests: PreliminaryNO SPECIAL REQUESTSCulture result: NO GROWT H 4 DAYSCULTURE, BLOOD [[id number]] (Order [id number])MicrobiologyDate: 03/25/2019 D epartment: [facility] Med Surg Released By/Authorizing:Jessie Neumann MD (auto-released)Specimen Information: Blood Component Value Flag Ref Range Units Sta tusSpecial Requests: PreliminaryNO SPECIAL REQUESTSCulture result: NO GROWT H 4 DAYSCt Chest Wo ContResult Date: 03/14/2019History: Respiratory difficult y. FINDINGS: CT scanning of the chest wasperformed helically from lung apices to the upper abdomen without intravenouscontrast dural. Sagittal and coronal reconstructed images are submitted.Scanning was performed utilizi ng dose lowering techniques and is compared to theprior study of 01/15/2019. Evaluati on of thoracic vascular structures is limitedwithout intravenous contrast mate rial. There is, however, no definite CTevidence of dissection or focal aneury smal dilatation. Some peripheralcalcification is noted. There is no evidence of any pa thologically enlargedlymph node within the visualized portions of the mediastinum o r axillae. Somenonpathologically enlarged lymph nodes are seen. Again noted is angel vation of theleft hemidiaphragm. A left small pleural effusion is noted as well asatel ectatic change at the left lung base. Patchy opacity at the right lung baseis compati ble with a right basilar infiltrate. There is some patchy opacitywithin the right midd le lobe as well. The right basal infiltrate is greater insize than that seen previou sly. The pleural effusion is smaller. The rightmiddle lobe infiltrate is similar. Limited evaluation of upper abdominalstructures reveals a tube withi n the stomach directed toward the duodenum.Diffuse hypertrophic degenerati ve changes are noted of the thoracic spine. Thereis again noted to be shift of media stinal structures to the right.IMPRESSION: Worsening right lower lobe infiltrate. S light worsening of the rightmiddle lobe infiltrate. Improved left lung.Xr Chest PortResult Date: 03/25/2019CHEST one view HISTORY: Fever. Reflux. Gastrostomy. COM PARISON: 03/11/2019.There is a poor inspiratory effort which compromises thi s interpretation. Arepeat study is suggested. There is discoid atelectasis and/or lef t lower lobeinfiltrate.There is no gross evidence of congestion, other infiltrate s,effusions or pneumothorax.IMPRESSION: Possible left lower lobe infiltrate. Poo r inspiratory effort.Xr Chest PortResult Date: 03/11/2019CHEST one view HISTORY: Fever. COPD. Reflux. COMPARISON: 02/12/2019. Anadditional view was obtained. A tubula r structure overlies the stomach andmidabdomen with some gastric distenti on and elevation of the left hemidiaphragm.There is a poor inspirator y effort which compromises this interpretation. Arepeat study is suggest ed. .There is no gross evidence of congestion,infiltrates, effusions or pne umothorax. Old rib fractures are noted.IMPRESSION: No evidence of acute c ardiopulmonary disease. Poor inspiratoryeffort. Gastric distention.Me dications reviewedCurrent Facility-Administered MedicationsMedicat ion Dose Route Frequency potassium, sodium phosphates (NEUTRA-PHOS) packet 2 Packet 2 Packet Per GTube BID acetylcysteine (MUCOMYST) 100 mg/mL (10 %) nebulizer so lution 400 mg 4 mLInhalation BID RT sodium chloride (NS) flush 5-10 mL 5-10 mL Int raVENous PRN acetaminophen (TYLENOL) solution 650 mg 650 mg Per G Tube Q4H P RN cinacalcet (SENSIPAR) tablet 60 mg 60 mg Oral DAILY heparin (porcine) injection 5,000 Units 5,000 Units SubCUTAneous Q12H lamoTRIgine (LaMICtal) tablet 50 mg 50 mg Per G Tube BID valproic acid (as sodium salt) (DEPAKENE) 250 mg/5 mL (5 mL) oral solution 750mg 750 mg Per G Tube Q12H methylPREDNISolone (PF) (SOLU-MEDROL) in jection 40 mg 40 mg IntraVENous Q6H multivit-folic acid-herbal 275 (WELLESSE PLUS) oral liquid 30 mL 30 mL Per GTube DAILY ALPRAZolam (XANAX) tablet 0.25 mg 0.25 mg Per G Tube QPM cefepime (MAXIPIME) 1 g in 0.9% sodium chloride (MBP/ADV) 50 mL MBP 1 gIntraVENous Q8H albuterol-ipratropium (DUO-NEB) 2.5 MG-0 .5 MG/3 ML 3 mL Nebulization Q6H RT vancomycin (VANCOCIN) 1,000 mg in 0.9% s odium chloride 250 mL IVPB 1,000 mgIntraVENous Q12H budesonide (PULMICOR T) 500 mcg/2 ml nebulizer suspension 500 mcg NebulizationBID RTAssessment/Plan:Hospit al Problems Date Reviewed: 03/29/2019 Codes Class Noted POA Acute hypoxemic re spiratory failure (HCC) ICD-10-CM: J96.01ICD-9-CM: 518.81 03/25/2019 Unkno wnAssessment:Acute Hypercapneic, Hypoxemic Respiratory FailureAspiration PneumoniaC OPDLeukocytosis- trending downwardMalfunctioning jtube; tubing kanika ears to be defectiveDysphagia ( s/p gtube conversion to jtube on 02/07/19)Anxiety DisorderHyperparathyroid Unspecified typeMentally challengedSeizure disorderH yponatremia- stableHypophosphate Plan: Continue IV cefepime and vancomycin per IDVM, PRN BIPAP per pulmonaryFor jtube placement in morning.Iv steroids taper p er pulmonarynebulizersFollow up culturesMonitor RACHELE Mora ec2018Time: 2:02 PM Name Value Range Interpretation Code Description Data Harriett rce(s) Supporting Document(s ) ID Date Data Source [id number] 03/29/2019 02:05:27 PM [facility] - [facility] GI PROGRESS NOTENAME: Evelio Johnson inDOB: 1950MRN: [id number]:Tolerating TFs via nyasia e portObjective:VITALS:Last 24hrs VS reviewed since prior progress note. Most recent a re:Visit VitalsBP 130/81 (BP 1 Location: Left arm, BP Patient Position: At rest)Pulse 63Temp 98.1 F (36.7 C)Resp 18Wt 55.2 kg (121 lb 12.8 oz)SpO2 97%BMI 22.28 kg/m I ntake/Output Summary (Last 24 hours) at 03/29/2019 1359Last data filed at 2018 1905Gross per 24 hourIntake 1350 mlOutput 1600 mlNet -250 mlPHYSICAL EXAM :General: unresponsive, in no acute distressHEENT: Anicteric sclerae.Abdomen : Soft, Non distended, Non tenderLab Data Reviewed:Recent Labs 03/28WBC 8.4 9.1HGB 11.7* 11.6*HCT 35.8* 34.4*PLT 308 301Recent Labs 03/28/1906NA 135* 138K 3.9 3.9CL 98 103CO2 35* 29BUN 12 15CREA 0.33* 0.39*GL U 121* 134*PHOS 2.8 2.3*CA 9.8 9.5Recent Labs 03/28/1906ALB 2.4* 2.2* Pati ent Active Problem ListDiagnosis Code Parae sophageal hiatal hernia K44.9 COPD (chronic obstructive pulmonary disease) ([facility]) J44 .9 Acute respiratory distress R06.03 Pneumonia J18.9 COPD exacerbation ([facility]) J44.1 Sepsis due to undetermined organism ([facility]) A41.9 Generalized anxiety disorde r F41.1 Acute respiratory failure with hypoxia ([facility]) J96.01 Pneumonia involvin g right lung J18.9 Hyponatremia E87.1 SOB (shortness of breath) R06.02 Pressure i njury of right heel, stage [address]) L89.612 Leg wound, right, initial encounter S81. 801A Acute hypoxemic respiratory failure ([facility]) J96.01Assessment: Defective J tub ingPlan: For J tube replacement in am - consent obtained NPO after midnightSign ed By: Marly Amaya MD 03/29/2019 1:59 PM Name Value Range Interpretation Code Description Data Harriett rce(s) Supporting Document(s ) ID Date Data Source [id number] 03/29/2019 01:34:48 PM EST [facility] Progress NotePatient: Evelio Carlin Sex: male DOA: 03/25/2019Date of : 1950 Age: 68 y.o. :[id number]:Reyes Carlin is 68 y.o. male who was seen earlier today, was pulling offhis VM. . .He is s/p EGD with positioning of jenunal feeding tube and endoclipping on03/26/19 Pt with TF leaking and was found with crack in the tube.Nursing staff was instructed by santiago weldon to use the side port. He has medical history of Dysphagia, recurrent aspiration pneumonia, s/p g/tconversion to jtube on 02/07/19, hyperlipidemia,hyperp arathyroid,unspecified,seizure, large hiatal hernia, anxiety disorder, personal histo ry ofpulmonary embolus,COPD, GERD, Schizophrenia unspecified, Kyphosis, Pa rkinsondisease, Severe intellectual disabilities.and Generalized muscle weak ness.As per the long-term transfer record, the patient was transferred to the EDfor Hypoxia, he was found with O2 SAT 77 % on O2 NC 4 LPM and tachypneic. Hewas later placed on NRBM. Patient has a clogged jtube and the long-term hasbeen using the g tube site for feedings and administration of medications.Pt was seen at [facility] by fatemeh Mei and plans were for jtube placement, that wasscheduled for today. The patient is nonverbal and unable to participate with his history.Patient was admitted with en counter diag of Acute Hypercapneic and Hypoxemicrespiratory failure and aspirat ion pneumonia. 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 Pupils are equalNeck : Supple, symmetrical, no adenopathy, no carotid bruit and no JVD.Lungs: Bilat eral air entry. No Wheezing or Rhonchi. No rales.Chest wall: No Accessory muscle use.Heart: Regular rate and rhythm, no murmur, or rub.Abdomen: Positive g/t. Not distended. Bowel sounds normal. No massesExtremities: Knees contractures l ower limbs. No cyanosis. No edema. NoclubbingSkin: Warm and dry. No ra shes or lesions. Not JaundicedLymph nodes: Cervical, supraclavicular normal.Psych: Not agitated.Neurologic: EOMs intact. No facial asymmetry. Non verbal. Generalize d weakness,Alert and Awake.Intake and Output:Current Shift: 03/28 1901 - 03/15 5 0700In: 1350 [I.V.:300]Out: -Last three shifts: 03/27 07 - 03/28 1900In: 2560 [I.V.:250]Out: 3050 [Urine:3050]Lab/Data Reviewed:Recent Days:Recent Labs 03/27/1906WBC 9.1 13.2* 14.2*HGB 11.6* 11.6* 10.7*HCT 34.4* 35.8 * 33.6*PLT 301 349 270Recent Labs 03/27/1906 1 NA 138 138 -- 143K 3.9 3.7 -- 4.2CL 103 100 -- 111*CO2 29 29 31* 28G ELHAM 134* 104 -- 105BUN 15 9 -- 12CREA 0.39* 0.32* -- 0.32*CA 9.5 9.6 -- 8. 0*MG 2.0 1.8 -- 1.8PHOS 2.3* 1.8* -- 2.3*ALB 2.2* 2.4* -- 1.9*Recent Labs [id number] 7.40PCO2 48PO2 49*HCO3 30*FIO2 28.0CULTURE, BLOOD [[id number]] (Order [id number])MicrobiologyDate: 03/25/2019 Department: [facility] Med Surg Released By/ Authorizing:Jesise Neumann MD (auto-released)Specimen Information: Blo od Component Value Flag Ref Range Units StatusSpecial Requests: Preliminary NO SPECIAL REQUESTSCulture result: NO GROWTH 4 DAYSCULTURE, BLOOD [[id number]] (Order [id number])MicrobiologyDate: 03/25/2019 Department: [facility] 3t Med Surg Released By/ Authorizing:Jessie Neumann MD (auto-released)Specimen Information: Blo od Component Value Flag Ref Range Units StatusSpecial Requests: Preliminary NO SPECIAL REQUESTSCulture result: NO GROWTH 4 DAYSCt Chest Wo ContResult Date: 03/14History: Respiratory difficulty. FINDINGS: CT scanning of the chest waspe rformed helically from lung apices to the upper abdomen without intravenouscontras t dural. Sagittal and coronal reconstructed images are submitted.Scanning was perfor med utilizing dose lowering techniques and is compared to theprior study of 01/15/2019. Evaluation of thoracic vascular structures is limitedwithout intravenous contrast m aterial. There is, however, no definite CTevidence of dissection or focal aneury smal dilatation. Some peripheralcalcification is noted. There is no evidence of any pa thologically enlargedlymph node within the visualized portions of the mediastinum o r axillae. Somenonpathologically enlarged lymph nodes are seen. Again noted is angel vation of theleft hemidiaphragm. A left small pleural effusion is noted as well asatel ectatic change at the left lung base. Patchy opacity at the right lung baseis compati ble with a right basilar infiltrate. There is some patchy opacitywithin the right midd le lobe as well. The right basal infiltrate is greater insize than that seen previou sly. The pleural effusion is smaller. The rightmiddle lobe infiltrate is similar. Limited evaluation of upper abdominalstructures reveals a tube withi n the stomach directed toward the duodenum.Diffuse hypertrophic degenerati ve changes are noted of the thoracic spine. Thereis again noted to be shift of media stinal structures to the right.IMPRESSION: Worsening right lower lobe infiltrate. S light worsening of the rightmiddle lobe infiltrate. Improved left lung.Xr Chest PortResult Date: 03/25/2019CHEST one view HISTORY: Fever. Reflux. Gastrostomy. COM PARISON: 03/11/2019.There is a poor inspiratory effort which compromises thi s interpretation. Arepeat study is suggested. There is discoid atelectasis and/or lef t lower lobeinfiltrate.There is no gross evidence of congestion, other infiltrate s,effusions or pneumothorax.IMPRESSION: Possible left lower lobe infiltrate. Poo r inspiratory effort.Xr Chest PortResult Date: 03/11/2019CHEST one view HISTORY: Fever. COPD. Reflux. COMPARISON: 02/12/2019. Anadditional view was obtained. A tubula r structure overlies the stomach andmidabdomen with some gastric distenti on and elevation of the left hemidiaphragm.There is a poor inspirator y effort which compromises this interpretation. Arepeat study is suggest ed. .There is no gross evidence of congestion,infiltrates, effusions or pne umothorax. Old rib fractures are noted.IMPRESSION: No evidence of acute c ardiopulmonary disease. Poor inspiratoryeffort. Gastric distention.Me dications reviewedCurrent Facility-Administered MedicationsMedicat ion Dose Route Frequency potassium, sodium phosphates (NEUTRA-PHOS) packet 2 Packet 2 Packet Per GTube BID acetylcysteine (MUCOMYST) 100 mg/mL (10 %) nebulizer so lution 400 mg 4 mLInhalation BID RT sodium chloride (NS) flush 5-10 mL 5-10 mL Int raVENous PRN acetaminophen (TYLENOL) solution 650 mg 650 mg Per G Tube Q4H P RN cinacalcet (SENSIPAR) tablet 60 mg 60 mg Oral DAILY heparin (porcine) injection 5,000 Units 5,000 Units SubCUTAneous Q12H lamoTRIgine (LaMICtal) tablet 50 mg 50 mg Per G Tube BID valproic acid (as sodium salt) (DEPAKENE) 250 mg/5 mL (5 mL) oral solution 750mg 750 mg Per G Tube Q12H methylPREDNISolone (PF) (SOLU-MEDROL) in jection 40 mg 40 mg IntraVENous Q6H multivit-folic acid-herbal 275 (WELLESSE PLUS) oral liquid 30 mL 30 mL Per GTube DAILY ALPRAZolam (XANAX) tablet 0.25 mg 0.25 mg Per G Tube QPM cefepime (MAXIPIME) 1 g in 0.9% sodium chloride (MBP/ADV) 50 mL MBP 1 gIntraVENous Q8H albuterol-ipratropium (DUO-NEB) 2.5 MG-0 .5 MG/3 ML 3 mL Nebulization Q6H RT vancomycin (VANCOCIN) 1,000 mg in 0.9% s odium chloride 250 mL IVPB 1,000 mgIntraVENous Q12H budesonide (PULMICOR T) 500 mcg/2 ml nebulizer suspension 500 mcg NebulizationBID RTAssessment/Plan:Hospit al Problems Date Reviewed: 03/27/2019 Codes Class Noted POA Acute hypoxemic re spiratory failure (HCC) ICD-10-CM: J96.01ICD-9-CM: 518.81 03/25/2019 Unkno wnAssessment:Acute Hypercapneic, Hypoxemic Respiratory FailureAspiration PneumoniaC OPDLeukocytosis- trending downwardMalfunctioning jtube; tubing kanika ears to be defectiveDysphagia ( s/p gtube conversion to jtube on 02/07/19)Anxiety DisorderHyperparathyroid Unspecified typeMentally challengedSeizure disorderH yponatremia- stableHypophosphate Plan: Continue IV cefepime and vancomycin per IDVM, PRN BIPAP per pulmonaryGi f/uIv steroidsnebulizersFollow up culturesMoni tor Teofilo Jenkins 2018Time: 2:21 AM Name Value Range Interpretation Code Description Data Harriett rce(s) Supporting Document(s ) ID Date Data Source [id number] 03/29/2019 12:21:58 PM EST [facility] - [facility] ID Progress Note03/29/2019Subjective:Pat ient with history of MR,COPD,recurrent aspiration pneumonia,dysphagia s/p pegpl acement was transferred from the long-term for respiratory distress,lowoxygen satur ation of 77% on 4 L nasal canula.Patient is non verbal,more awake today butunable to provide any historyAwake non verbal,unale to provide historyWbc wnlBlood culture no g rowth.AfebrileObjective:Review of SystemsUnable to provide.Vitals:Patient Vitals for the past 24 hrs: BP Temp Pulse Resp SpO2 Ooztqt25/15/19 0826 - - - - 99 % -03/29/19 0752 162/73 97.6 F (36.4 C) (!) 43 18 97 % -03/29/19 0641 - - - - - 55.2 kg (121 lb 12.8 oz)03/29/19 0431 145/68 97.5 F (36.4 C) (!) 57 18 98 % - 0117 138/82 - 62 18 - -03/29/19 0002 138/82 97.7 F (36.5 C) 62 18 - - 2330 138/82 97.7 F (36.5 C) 62 18 - -03/28/19 2050 - - - - 97 % -03/28/19 19 32 143/71 98 F (36.7 C) 60 18 97 % -03/28/19 1514 132/86 97.8 F (36.6 C) 75 18 95 % -Tmax: Temp (24hrs), Av.7 F (36.5 C), Min:97.5 F (36.4 C), Max:98 F(36.7 C)Physical Exam:General: Awake, nonverbal cooperative, no distress, appe ars stated age.Eyes: Conjunctivae/corneas clear. PERRLNeck: Supple, symmetrical, t rachea midline, no adenopathyLungs: Bilateral breath sounds with basal crack les..Heart: Regular rate and rhythm, S1, S2 normal, no murmurAbdomen: Soft, non-te nder. Bowel sounds normal. No masses, Noorganomegaly.peg+Back: No CVA tender ness.Extremities: Chronic lymphedema, no cyanosisPulses: 2+ and symmetric all ext remities.Skin: Skin color, texture, turgor normal. No rashes or lesionsCurrent Faci lity-Administered MedicationsMedication Dose Route Frequency potassium, sodium phosp hates (NEUTRA-PHOS) packet 2 Packet 2 Packet Per GTube BID acetylcysteine (MUCOMYST) 100 mg/mL (10 %) nebulizer solution 400 mg 4 mLInhalation BID RT sodium chloride ( NS) flush 5-10 mL 5-10 mL IntraVENous PRN acetaminophen (TYLENOL) solution 650 mg 650 mg Per G Tube Q4H PRN cinacalcet (SENSIPAR) tablet 60 mg 60 mg Oral KYLEIGH Y heparin (porcine) injection 5,000 Units 5,000 Units SubCUTAneous Q12H lamoTRIgi ne (LaMICtal) tablet 50 mg 50 mg Per G Tube BID valproic acid (as sodium salt) (DEP AKENE) 250 mg/5 mL (5 mL) oral solution 750mg 750 mg Per G Tube Q12H methylPREDNISol one (PF) (SOLU-MEDROL) injection 40 mg 40 mg IntraVENous Q6H multivit-folic acid-her bal 275 (WELLESSE PLUS) oral liquid 30 mL 30 mL Per GTube DAILY ALPRAZolam (XANAX) t ablet 0.25 mg 0.25 mg Per G Tube QPM cefepime (MAXIPIME) 1 g in 0.9% sodium c hloride (MBP/ADV) 50 mL MBP 1 gIntraVENous Q8H albuterol-ipratropium (DUO-NEB) 2.5 MG-0.5 MG/3 ML 3 mL Nebulization Q6H RT vancomycin (VANCOCIN) 1,000 mg in 0.9% s odium chloride 250 mL IVPB 1,000 mgIntraVENous Q12H budesonide (PULMICOR T) 500 mcg/2 ml nebulizer suspension 500 mcg NebulizationBID RTLabs:Recent Labs 03/28/1906WBC 8.4 9.1 13.2*HGB 11.7* 11.6* 11.6*PLT 308 301 34 9BUN 12 15 9CREA 0.33* 0.39* 0.32*Cultures:Lab ResultsComponent Value Date/Time Culture result: NO GROWTH 4 DAYS 03/25/2019 03:10 AM Culture result: NO G SHASHANK 4 DAYS 03/25/2019 02:55 AM Culture result: NO GROWTH 5 DAYS 03/11/2019 04:1 4 AM Culture result: NO GROWTH 5 DAYS 03/11/2019 04:14 AMRadiology:No results found.Assessment: Recurrent aspiration pneumonia. Acute COPD exacerbation Acu te hypercapnic respiratory failure. Dysphagia s/p peg placement.. Atelectas is R/o sepsis. Plan:1. Continue IV cefepime and vancomycin2. Follow cultures.Monica GomezROSEMARYtammymadykarel [id number] AM Name Value Range Interpretation Code Description Data [facility] rce(s) Supporting Document(s ) ID Date Data Source [id number] 03/29/2019 11:48:01 AM [facility] Name Value Range Interpretation Description Data Sup porting Code Source(s) Document(s ) Glucose 153 MG/DL 65-110 Above high normal [facility] - Good [Mass/volume] [facility] in Blood by [facility] Automated test strip ID Date Data Source [id number] 03/29/2019 07:38:05 AM [facility] Bedside and Verbal shift change report carol pham to Kirti RN (oncoming nurse) Jennifer RN (offgoing nurse). Report included the [facility] SBAR,Intake/Output, MAR, Recent Results, Med Rec Status and Cardi ac Rhythm .. Name Value Range Interpretation Code Description Data [facility] rce(s) Supporting Document(s ) ID Date Data Source [id number] 03/29/2019 06:29:52 AM [facility] Name Value Range Interpretation Description Data Sup porting Code Source(s) Document(s ) Glucose 131 MG/DL 65-110 Above high normal [facility] - Good [Mass/volume] [facility] in Blood by Hospital Automated test strip ID Date Data Source [id number] 03/29/2019 06:59:56 AM [facility] Name Value Range Interpretation Description Data Sup porting Code Source(s) Document(s ) Sodium 135 136-145 Below low normal [facility] - Good [Moles/volume] mmol/L [facility] in Serum or Hospital Plasma Potassium 3.9 3.5-5.1 [facility] - Good [Moles/volume] mmol/L [facility] in Serum or Hospital Plasma Chloride 98 98-107 [facility] - Good [Moles/volume] mmol/L [facility] in Serum or Hospital Plasma Carbon 35 21-32 Above high normal [facility] - Good dioxide, total mmol/L [facility] [Moles/volume] Hospital in Serum or Plasma Anion gap in 6 mmol/L 10-20 Below low normal [facility] - Go od Serum or [facility] Plasma Hospital Glucose 121 74-106 Above high normal [facility] - Good [Mass/volume] mg/dL [facility] in Serum or Hospital Plasma Urea nitrogen 12 mg/dL 7-18 [facility] - Good [Mass/volume] [facility] in Serum or Hospital Plasma Creatinine 0.33 0.70-1.3 Below low normal [facility] - Good [Mass/volume] mg/dL 0 [facility] in Serum or Hospital Plasma Glomerular >60 [facility] - Good filtration [facility] rate/1.73 sq M Hospital predicted among blacks [Volume Rate/Area] in Serum or Plasma by Creatinine-bas ed formula (MDRD) Glomerular >60 [facility] - Good filtration [facility] rate/1.73 sq M Hospital predicted among non-blacks [Volume Rate/Area] in Serum or Plasma by Creatinine-bas ed formula (MDRD) Calcium 9.8 8.5-10.1 [facility] - Good [Mass/volume] mg/dL [facility] in Serum or Hospital Plasma Phosphate 2.8 2.5-4.9 [facility] - Good [Mass/volume] mg/dL [facility] in Serum or Hospital Plasma Albumin 2.4 g/dL 3.5-4.7 Below low normal [facility] - Good [Mass/volume] [facility] in Serum or Hospital Plasma by Bromocresol purple (BCP) dye binding method ID Date Data Source [id number] 03/29/2019 06:59:56 AM EST [facility] Name Value Range Interpretation Description Data Sup porting Code Source(s) Document(s ) Magnesium 2.0 mg/dL 1.6-2.6 [facility] - Good [Mass/volume] Taoist in Serum or Hospital Plasma ID Date Data Source [id number] 03/29/2019 06:57:30 AM EST [facility] - [facility] Name Value Range Interpretation Description Data Sup porting Code Source(s) Document(s ) Leukocytes 8.4 K/uL 4.8-10.6 [facility] - [#/volume] in Good Blood by Taoist Automated count Hospital Erythrocytes 3.78 4.70-6.0 Below low normal [facility] - [#/volume] in M/uL 0 Good Blood by [facility] Hospital Hemoglobin 11.7 14.0-18. Below low normal [facility] - [Mass/volume] in g/dL 0 [facility] Blood [facility] Hematocrit 35.8 % 42.0-52. Below low normal [facility] - [Volume 0 Good Fraction] of Taoist Blood by Hospital Automated count Erythrocyte mean 94.7 FL 81.0-94. Above high normal [facility] - corpuscular 0 Good volume [Entitic Taoist volume] by Hospital Automated count Erythrocyte mean 31.0 PG 27.0-35. [facility] - corpuscular 0 Good hemoglobin Taoist [Entitic mass] Hospital by Automated count Erythrocyte mean 32.7 30.7-37. [facility] - corpuscular g/dL 3 Good hemoglobin Taoist concentration [facility] [Mass/volume] by Automated count Erythrocyte 16.2 % 11.5-14. Above high normal [facility] - distribution 0 Good width [Ratio] by Taoist Automated count Hospital Platelets 308 K/uL 130-400 [facility] - [#/volume] in Good Blood by Taoist Automated count [facility] Platelet mean 9.9 FL 9.2-11.8 [facility] - volume [Entitic Good volume] in Blood Taoist by Automated Hospital count Segmented 89 % 48.0-72. Above high normal [facility] - neutrophils/100 0 Good leukocytes in [facility] Lymphocytes/100 7 % 18.0-40. Below low normal [facility] - leukocytes in 0 [facility] Blood [facility] Monocytes/100 4 % 2.0-12.0 [facility] - leukocytes in [facility] Blood [facility] Eosinophils/100 0 % 0.0-7.0 [facility] - leukocytes in [facility] Blood [facility] Basophils/100 0 % 0.0-3.0 [facility] - leukocytes in [facility] Segmented 7.4 K/UL 1.5-6.6 Above high normal [facility] - neutrophils Good [#/volume] in [facility] Lymphocytes 0.6 K/UL 1.5-3.5 Below low normal [facility] - [#/volume] in [facility] Monocytes 0.4 K/UL 0.0-1.0 [facility] - [#/volume] in [facility] Eosinophils 0.0 K/UL 0.0-0.7 [facility] - [#/volume] in [facility] Basophils 0.0 K/UL 0.0-0.1 [facility] - [#/volume] in [facility] Differential [facility] - cell count [facility] Immature 0 % 0.0-2.0 [facility] - granulocytes/100 [facility] leukocytes in Taoist Blood by [facility] Automated count ID Date Data Source [id number] 03/29/2019 01:55:57 AM EST [facility] Patient continues to remove bipap. Asked hospitalist to place restraintsorder. Patient desaturates when off the bipap. Mitten restraints initiated. Name Value Range Interpretation Code Description Data Harriett rce(s) Supporting Document(s ) ID Date Data Source [id number] 03/29/2019 12:56:08 AM EST [facility] - [facility] Name Value Range Interpretation Description Data Sup porting Code Source(s) Document(s ) Glucose 112 MG/DL 65-110 Above high normal [facility] [Mass/volume] Taoist in Blood [facility] Automated test strip ID Date Data Source [id number] 03/29/2019 12:01:26 AM EST [facility] Patient slapping himself in the face con stantly. When on bipap patient spo2 isin 97%. Patient constantly removes bipap and jesenia aturates to low 80%. Patienttrying to lick my hand as I try to place the bipap back on him. Patient is notcombative. Appears that the bipap mask causes some discomfort to him and hecontinuously tires to remove it. Aspiration precautions maintained. Fall andsafety precautions maintained. Name Value Range Interpretation Code Description Data [facility] rce(s) Supporting Document(s ) ID Date Data Source [id number] 03/28/2019 08:05:00 PM [facility] Bedside and Verbal shift change report carol raglandten ayan Rey, RN (oncoming nurse) Israel Alamo RN (offgoing nurse). Report included the following information SBAR, Kardex,Intake/Output, MAR, Recent Results and Cardiac Rhythm S matthew. Name Value Range Interpretation Code Description Data [facility] rce(s) Supporting Document(s ) ID Date Data Source [id number] 03/28/2019 05:30:55 PM [facility] No reddness on nose Name Value Range Interpretation Code Description Data [facility] rce(s) Supporting Document(s ) ID Date Data Source [id number] 03/28/2019 04:38:28 PM [facility] Name Value Range Interpretation Description Data Sup porting Code Source(s) Document(s ) Glucose 109 MG/DL 65-110 [facility] [Mass/volume] Taoist in Blood by Hospital Automated test strip ID Date Data Source [id number] 03/28/2019 03:13:15 PM [facility] ID Progress Note03/28/2019Subjective:Dulce ke non verbal,off BiPAP,unable to provide historyWbc wnlBlood culture no growth.Af ebrileObjective:Review of SystemsUnable to provide.Vitals:Patient Vitals for the me st 24 hrs: BP Temp Pulse Resp SpO2 Thgalm18/14/19 1123 149/80 98.1 F (36.7 C) 75 18 93 % -03/28/19 0745 150/88 98.7 F (37.1 C) 68 18 92 % -03/28/19 0532 - - - - 95 % -03/28/19 0440 144/83 97.5 F (36.4 C) 73 16 93 % -03/28/19 0437 - - - - - 5 5.3 kg (122 lb)03/28/19 0135 - - - - 95 % -03/27/19 2347 138/68 97.7 F (36.5 C) (!) 55 15 96 % -03/27/192157 - - - - 93 % -03/27/192044 (!) 108/91 97.5 F (36.4 C) 78 16 93 % -03/27/192025 - - - - 90 % -03/27/19 1539 128/71 97 F (36.1 C) 68 15 97 % -Tmax: Temp (24hrs), Av.8 F (36.6 C), Min:97 F (36.1 C), Max:98.7 F(37.1 C)Physical Exam:General: Awake, nonverbal cooperative, no distress, appe ars stated age.Eyes: Conjunctivae/corneas clear. PERRLNeck: Supple, symmetrical, t rachea midline, no adenopathyLungs: Bilateral breath sounds with basal crack les..Heart: Regular rate and rhythm, S1, S2 normal, no murmurAbdomen: Soft, non-te nder. Bowel sounds normal. No masses, Noorganomegaly.peg+Back: No CVA tender ness.Extremities: Chronic lymphedema, no cyanosisPulses: 2+ and symmetric all ext remities.Skin: Skin color, texture, turgor normal. No rashes or lesionsCurrent Faci lity-Administered MedicationsMedication Dose Route Frequency potassium, sodium phosp hates (NEUTRA-PHOS) packet 2 Packet 2 Packet Per GTube BID acetylcysteine (MUCOMYST) 100 mg/mL (10 %) nebulizer solution 400 mg 4 mLInhalation BID RT sodium chloride ( NS) flush 5-10 mL 5-10 mL IntraVENous PRN acetaminophen (TYLENOL) solution 650 mg 650 mg Per G Tube Q4H PRN cinacalcet (SENSIPAR) tablet 60 mg 60 mg Oral KYLEIGH Y heparin (porcine) injection 5,000 Units 5,000 Units SubCUTAneous Q12H lamoTRIgi ne (LaMICtal) tablet 50 mg 50 mg Per G Tube BID valproic acid (as sodium salt) (DEP AKENE) 250 mg/5 mL (5 mL) oral solution 750mg 750 mg Per G Tube Q12H methylPREDNISol one (PF) (SOLU-MEDROL) injection 40 mg 40 mg IntraVENous Q6H multivit-folic acid-her bal 275 (WELLESSE PLUS) oral liquid 30 mL 30 mL Per GTube DAILY ALPRAZolam (XANAX) t ablet 0.25 mg 0.25 mg Per G Tube QPM cefepime (MAXIPIME) 1 g in 0.9% sodium c hloride (MBP/ADV) 50 mL MBP 1 gIntraVENous Q8H albuterol-ipratropium (DUO-NEB) 2.5 MG-0.5 MG/3 ML 3 mL Nebulization Q6H RT vancomycin (VANCOCIN) 1,000 mg in 0.9% s odium chloride 250 mL IVPB 1,000 mgIntraVENous Q12H budesonide (PULMICOR T) 500 mcg/2 ml nebulizer suspension 500 mcg NebulizationBID RTLabs:Recent Labs 03/27/1906WBC 9.1 13.2* 14.2*HGB 11.6* 11.6* 10.7*PLT 301 349 270BUN 15 9 12CREA 0.39* 0.32* 0.32*Cultures:Lab ResultsComponent Value Date/Time Culture result: NO GROWTH 2 DAYS 03/25/2019 03:10 AM Culture result: NO G ROWTH 2 DAYS 03/25/2019 02:55 AM Culture result: NO GROWTH 5 DAYS 03/11/2019 04:1 4 AM Culture result: NO GROWTH 5 DAYS 03/11/2019 04:14 AMRadiology:No results found.Assessment: Recurrent aspiration pneumonia. Acute COPD exacerbation Acu te hypercapnic respiratory failure. Dysphagia s/p peg placement.. Atelectas is R/o sepsis. Plan:1. Continue IV cefepime and vancomycin2. Follow cultures.Natasha Dudley MDDecember 20183:07 PM Name Value Range Interpretation Code Description Data Harriett rce(s) Supporting Document(s ) ID Date Data Source [id number] 03/28/2019 03:09:31 PM EST [facility] PULMONARY/ CCM- Consult NotePatient: Ivelisse nuel Fischbein Sex: male DOA: 03/25/2019Date of : [birth year] Age: 68 y.o. LOS: LOS: 3 daysHPI: step down.Evelio Carlin is a 68 y.o. 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 Authorizing Providerheparin sodium,porcine (HEPARIN, PORCINE,) 5,000 unit/mL injection 1 mL bySubCUTAneous route every twelve (12) hours every twelve (12 ) hours. 03/17/19Mili Hills DOmultivitamin (MULTI-DELYN, WELLESSE) l iqd 5 mL by Per G Tube route daily.03/17/19 Mili Hills DOacetaminophen (TYLENO L) 32MG/ML soln solution Take 20.3 mL by mouth every four(4) hours as needed for Pain or Fever. 03/17/19 Mili Hills DOvalproic acid, as sodium salt, (DEPAKE NE) 250 mg/5 mL (5 mL) soln oral [id number] mg by Per G Tube route every twelve (12) hours. Provider, Edieacetylcysteine (MUCOMYST) 100 mg/mL (10 %) nebulizer so lution Take 4 mL byinhalation two (2) times a day. Provider, Historicalclorazepate (TRANXENE) 3.75 mg tablet 1 Tab by Per G Tube route nightly. MaxDaily Amount: 3.75 mg. 12/30/18 Mili Hills DOcinacalcet (SENSIPAR) 30 mg tablet Take 2 Tabs by m outh daily.Patient taking differently: 30 mg daily. Via G tube 12/30/18 Maryann HillsDOlamoTRIgine (LAMICTAL) 25 mg tablet 2 Tabs by Per G Tube route two (2) times a day. 12/30/18 Mili Hills DOalbuterol-ipratropium (DUO-NEB) 2.5 mg -0.5 mg/3 ml nebu 3 mL by Nebulizationroute every six (6) hours. Every 6 hours while awakePatient taking differently: 3 mL by Nebulization route every four (4) hours asneeded. Every 6 hours while awake 12/30/18 Mili Hills DObudesonide (PULMICORT ) 0.5 mg/2 mL nbsp 2 mL by Nebulization route two (2) timesa day. 12/30/18 Maryam Hills DONo Known AllergiesPast Surgical History:Procedure Laterality Date HX GA STROSTOMY PEG- replaced 11/2018History reviewed. No pertinent family history.So cial HistorySocioeconomic History Marital status: SINGLE Spouse name: Not on file Number of children: Not on file Years of education: Not on file Highest educatio n level: Not on fileTobacco Use Smoking status: Never Smoker Smokeless tobacco: Never UsedSubstance and Sexual Activity Alcohol use: No Drug use: NoReview of S ystemsPertinent items are noted in the History of Present Illness.Physical Exam :Current medications:Current Facility-Administered Medications: pot assium, sodium phosphates (NEUTRA-PHOS) packet 2 Packet, 2 Packet, Per GTube, BI D, Mili Hills DO, 2 Packet at 03/28/19 0858 acetylcysteine (MUCOMYST) 100 mg/ mL (10 %) nebulizer solution 400 mg, 4 mL,Inhalation, BID RT, Mili Hills DO, 400 mg at 03/28/19 0836 sodium chloride (NS) flush 5-10 mL, 5-10 mL, IntraVENous , PRN, Jessie Neumann MD acetaminophen (TYLENOL) solution 650 mg, 650 mg, Per G Tube, Q4H PRN, Mili Hills DO cinacalcet (SENSIPAR) tablet 60 mg, 60 mg, Oral, DAILY, Mili Hills DO,60 mg at 03/28/19 0853 heparin (porcine) injection 5,000 Units, 5,000 Units, SubCUTAneous, Q12H,Mili Hills DO, 5,000 Units at 03/28/19 0854 lamoTRIgine (LaMICtal) tablet 50 mg, 50 mg, Per G Tu be, BID, Mili Hills DO, 50 mg at 03/28/19 0858 valproic acid (as sodium salt) (DEPAKENE) 250 mg/5 mL (5 mL) oral hmyenzmg978 mg, 750 mg, Per G Tube, Q12H , Mili Hills DO, 750 mg at 03/28/19 0853 methylPREDNISolone (PF) (SOLU-MED ROL) injection 40 mg, 40 mg, IntraVENous,Q6H, Mili Hills DO, 40 mg at 03/28/19 1 307 multivit-folic acid-herbal 275 (WELLESSE PLUS) oral liquid 30 mL, 30 mL , PerG Tube, DAILY, Mili Hills DO, 30 mL at 03/28/19 0901 ALPRAZolam (XANAX) tablet 0.25 mg, 0.25 mg, Per G Tube, QPM, Mili Hills DO, 0.25 mg at 03/27/19 1843 cefepime (MAXIPIME) 1 g in 0.9% sodium chloride (MBP/ADV) 50 mL MBP, 1 g,IntraV ENous, Q8H, Mili Hills DO, Last Rate: 100 mL/hr at 03/28/19 1453, 1g at 1453 albuterol-ipratropium (DUO- NEB) 2.5 MG-0.5 MG/3 ML, 3 mL, Nebulization, Q6HR T, Mili Hills DO, 3 mL at 03/28/19 1457 vancomycin (VANCOCIN) 1,000 mg in 0.9% sodium chloride 250 mL IVPB, 1,000 mg,IntraVENous, Q12H, Natasha Dudley MD, Last Rate: 125 mL/hr at 03/28/19 1004,1,000 mg at 03/28/19 1004 budesonide (PULMIC ORT) 500 mcg/2 ml nebulizer suspension, 500 mcg,Nebulization, BID RT, Pablo Flores MD, 500 mcg at 03/28/19 0837DataVisit VitalsBP 149/80 (BP 1 Location: Left arm , BP Patient Position: At rest)Pulse 75Temp 98.1 F (36.7 C)Resp 18Wt 55.3 kg (122 lb)SpO2 93%BMI 22.31 kg/m Intake and Output:Date 03/27/19 0700 - 03/28/19 065 9 03/28/19 0700 - 03/29/19 0659Shift 4667-0478 3559-5522 24 Hour Total 0700-1 859 6922-2403 24 Hour TotalINTAKEI.V.(mL/kg/hr) 250(0.4) 250( 0.2) Volume (vancomycin (VANCOCIN) 1,000 mg in 0.9% sodium chloride 250 mL IVPB)250 250NG/GT 985 1225 2210 Water Flush Volume (mL) (PEG/Gastrostomy Tube) 25 325 350 Medication Volume (PEG/Gastrostomy Tube) 60 60 Intake (ml) (PEG/Gastrostomy Tube) 9 00 900 1800Shift Total(mL/kg) 985(18.1) 1475(26.7) 2460(44.5)OUTPUTUrine(mL/kg/h r) 1450(2.2) 1450(1.1) Urine Voided 1450 1450Shift Total(mL/kg) 1450(26.6) 1450( 26.2)NET -465 1475 1010Weight (kg) 54.4 55.3 55.3 55.3 55.3 55.3Pulse OX:SpO2 Reading s from Last 6 Encounters:03/28/19 93%03/17/19 92%02/19/19 96%02/18/19 92%01/24/19 93%0 12/30/18 96%@LASTSAO2(6)@PHYSICAL EXAM:General: Lethargic,responding.He ad: Normocephalic, without obvious abnormality, atraumatic.Eyes: Conjunct ivae clear, anicteric sclerae. Pupils are equalNose: Nares normal. No drainage or sinus tenderness.Throat: Lips, mucosa, and tongue normal. No ThrushNeck: Supp le, symmetrical, no adenopathy, thyroid: non tender no carotid bruit and no JVD.Back : Symmetric, No CVA tenderness.Lungs: Scattered rhonchi,Chest wall: No tender ness or deformity. No Accessory muscle use.Heart: Regular rate and rhythm, n o murmur, rub or gallop.Abdomen: Soft, non-tender. Not distended. Bowel sounds normal. No massesExtremities: Extremities normal, atraumatic, No cyanosis. No deepthi ma. No clubbingSkin: Texture, turgor normal. No rashes or lesions. Not Jaund icedLymph nodes: Cervical, supraclavicular normal.Psych: Good insight. Not depres sed. Not anxious or agitated.Neurologic: EOMs intact. No facial asymmetry. No aph greg or slurred speech.Most recent labs:Recent Labs 03/26/1908WBC 9.1 13.2* 14.2*HGB 11.6* 11.6* 10.7*HCT 34.4* 35.8* 33.6*PLT 301 349 270Recent Labs 03/27/1906NA 138 138 -- 143K 3.9 3.7 -- 4.2CL 103 100 -- 111*CO2 29 29 31* 28GLU 134* 104 -- 105BUN 15 9 -- 12CREA 0.39* 0.32* -- 0.32*CA 9.5 9.6 -- 8.0*MG 2.0 1.8 -- 1.8PHOS 2.3 * 1.8* -- 2.3*ALB 2.2* 2.4* -- 1.9*Recent Labs 1PH 7.40PCO2 48PO2 49*H CO3 30*FIO2 28.0ABG:Recent Labs 1PH 7.40PCO2 48PO2 49*HCO3 30 *FIO2 28.0Cultures:No results found for: SDESLab ResultsComponent Value Date/Time Culture result: NO GROWTH 2 DAYS 03/25/2019 03:10 AM Culture result: NO GROWTH 2 DAY S 03/25/2019 02:55 AM Culture result: NO GROWTH 5 DAYS 03/11/2019 04:14 AM Cultur e result: NO GROWTH 5 DAYS 03/11/2019 04:14 AM Culture result: NO GROWTH 5 DAYS 01/14 05:19 PM Culture result: NO GROWTH 5 DAYS 02/08/2019 05:00 PM Culture result: NO GROWTH 5 DAYS 01/21/2019 11:30 PM Culture result: NO GROWTH 2 DAYS 01/21/2019 11:1 5 PM Culture result: NO GROWTH 5 DAYS 01/21/2019 11:00 PM Culture result: NO G ROWTH 1 DAY 01/10/2019 08:58 AM Culture result: NO GROWTH 5 DAYS 01/10/2019 07:5 5 AM Culture result: NO GROWTH 5 DAYS 01/10/2019 07:40 AM Culture result: NO G ROWTH 5 DAYS 12/29/2018 11:23 AM Culture result: NO GROWTH 5 DAYS 12/29/2018 11:0 0 AM Culture result: 10,000 to 50,000 COLONIES/mL KLEBSIELLA PNEUMONIAE (A) 11:00 AM Culture result: 50,000-100,000 COLONIES/mL PSEUDOMONAS A ERUGINOSA (A)12/29/2018 11:00 AM Culture result: (A) 12/29/2018 11:00 AM 10,000 to 50,000 COLONIES/mL STAPHYLOCOCCUS EPIDERMIDIS Culture result: NO GROWTH 2 DAYS 12/24/2018 09:45 AM Culture result: NO GROWTH 5 DAYS 12/23/2018 12:00 PM Cultur e result: NO GROWTH 5 DAYS 12/23/2018 11:40 AM Culture result: NO GROWTH 4 DAYS 09/2018 12:30 PM Culture result: NO GROWTH 4 DAYS 12/19/2018 12:30 PM Culture result: NO GROWTH 1 DAY 12/12/2018 08:04 PM Culture result: NO GROWTH 5 DAYS 12/12/2018 07:4 0 PM Culture result: NO GROWTH 5 DAYS 12/12/2018 07:40 PM Culture result: NO G ROWTH 2 DAYS 11/20/2018 09:00 AM Culture result: NO GROWTH 5 DAYS 11/07/2018 08:1 0 PM Culture result: NO GROWTH 5 DAYS 11/07/2018 08:00 PMImages:Cta Chest W Or W Wo ContResult Date: 11/08/2018Examination: CTA Chest ? PE angiography History: Hypo magdy; rule out pneumoniaversus pulmonary embolism Priors: None Technique: Low-d ose, multiplanar,helical CTA chest was performed with bolus IV injection from lung apices tobases. 3D-reformatted images were obtained and reviewed on a [employer] d viewingworkstation and directly supervised. Contrast: A total of 71 mL of Isovue-370 was administered intravenously for this procedure. Findings: No evidence ofpulmo nary embolism is seen. There is decreased size of the right hemithorax fromchronic scarring and retraction with mediastinal shift left to right.Additional area of c onsolidation is seen in the right lower lobe and suggestssuperimposed pneumonia with subsegmental atelectasis. Subsegmental atelectasisis also noted in the left jorge g base, with pleural parenchymal scarring. Lowlung volumes are seen. No pneumothora x seen. Aorta normal in caliber withoutaneurysm or dissection. Mediastin um no adenopathy. Mediastinal shift is seen inthe left and right as a result of chr onic changes in the right hemithorax.Heart shows no chamber enlargement or pericard ial effusion. No acute fracturesseen in the bony thorax, sternum, manubrium and rib cage. Multiple compressiondeformities are seen in the mid and lower thoracic spine , with superimposedspondyloarthropathy. Cannot exclude acute fracture.Impression : No evidence of pulmonary embolism Right lower lobe pneumoniasuggested. Incidenta l scarring and retraction in the right hemithorax fromremote/chronic inflammato ry disease and/or trauma. Bibasilar subsegmentalatelectasis. Report Electron ically Signed By: Pawel Zafar M.D. -11/08/2018 12:40 AMXr Chest PortResult D ate: 11/07/2018XR CHEST PORT CLINICAL INDICATION PROVIDED:. "sob." COMPARISON: . 09/26/2015.FINDINGS:. The pericardial/cardiac silhouette is enlarg ed in the transversedimension. There is no pulmonary vascular congestion or interst itial edema.Linear density in the left lung base and faint densities in the right mi d tolower lung likely represent atelectasis. There is no lobar consolidation oreffusi on. There is no pneumothorax.IMPRESSION:. Bilateral lower lung atelectasis. No donna dence of consolidation oreffusion.Assessment/PlanActive Problem s: Acute hypoxemic respiratory failure (HCC) (03/25/2019) Acute resp failure combined pneumonia recurrent acute copd exacerbationPLAN,Monitoring,bipap prn fo r resp distress,abx as per id.Steroid nebbipap prn and at night.Gi/renal follo w up noted.NebGi /dvt prophylaxis.D/w nursing staff.Stella Hamilton, MDDecesenait 2018 The billing code submitted in association with this evaluation also includes theti me to review patient's prior records, communicate with the physician team,obta in corroborating data, and discuss the risk and benefits of the proposedmanagement p frantz with the patient and their family >30 minutes. Name Value Range Interpretation Code Description Data Harriett rce(s) Supporting Document(s ) ID Date Data Source [id number] 03/28/2019 01:20:57 PM EST [facility] GI PROGRESS NOTENAME: Evelio Johnson inDOB: 1950MRN: [id number]:Tolerating tube feeds through the side portBroken main port tubingObjective:VITALS:Last 24hrs VS rev iewed since prior progress note. Most recent are:Visit VitalsBP 149/80 (BP 1 Location : Left arm, BP Patient Position: At rest)Pulse 75Temp 98.1 F (36.7 C)Resp 18Wt 55.3 kg (122 lb)SpO2 93%BMI 22.31 kg/m Intake/Output Summary (Last 24 hours) at 03/28/2019 1319Last data filed at 03/28/2019 0636Gross per 24 hourIntake 2435 mlOutpu t 1450 mlNet 985 mlPHYSICAL EXAM:General: unresponsive, in no acute distressHEENT: Anicteric sclerae.Abdomen: Soft, Non distended, Non tender.Lab Data Reviewed: Recent Labs 03/27/1906WBC 9.1 13.2*HGB 11.6* 11.6*HCT 34.4* 35.8*PLT 3 01 349Recent Labs 03/27/1906NA 138 138K 3.9 3.7CL 103 10 0CO2 29 29BUN 15 9CREA 0.39* 0.32*GLU 134* 104PHOS 2.3* 1.8*CA 9.5 9.6Recent Labs 03/27/19065ALB 2.2* 2.4* Pati ent Active Problem ListDiagnosis Code Parae sophageal hiatal hernia K44.9 COPD (chronic obstructive pulmonary disease) ([facility]) J44 .9 Acute respiratory distress R06.03 Pneumonia J18.9 COPD exacerbation ([facility]) J44.1 Sepsis due to undetermined organism ([facility]) A41.9 Generalized anxiety disorde r F41.1 Acute respiratory failure with hypoxia ([facility]) J96.01 Pneumonia involvin g right lung J18.9 Hyponatremia E87.1 SOB (shortness of breath) R06.02 Pressure i njury of right heel, stage [address]) L89.612 Leg wound, right, initial encounter S81. 801A Acute hypoxemic respiratory failure ([facility]) J96.01Assessment: Dysphagia - s/p PEJ via PEG placement, but tubing appears to be defectivePlan: Continue TFs via side port for now Will need to replace J tubing on mondaysigned By: Marly Amaya MD 03/28/2019 1:19 PM Name Value Range Interpretation Code Description Data Harriett rce(s) Supporting Document(s ) ID Date Data Source [id number] 03/28/2019 12:26:18 PM EST [facility] Name Value Range Interpretation Description Data Sup porting Code Source(s) Document(s ) Glucose 144 MG/DL 65-110 Above high normal [facility] - [facility] [Mass/volume] [facility] in Blood by Hospital Automated test strip ID Date Data Source [id number] 03/28/2019 08:45:43 AM EST [facility] Progress NotePatient: Evelio Carlin Sex: male DOA: 03/25/2019Date of : 1950 Age: 68 y.o. :[id number]:Reyes Carlin is 68 y.o. male was seen earlier this morning. He is onBIPAP. .He is s/p EGD with positioning of jenunal feeding tube and endoclippingon 03/26/19Pt with TF le aking and was found with crack in the tube.Nursing staff was instructed by santiago weldon to use the other port that is available. He has medical history of Dysphagia, rec urrent aspiration pneumonia, s/p g/tconversion to jtube on 02/16/19, hyperlipidemia,hyperparathyroid,unspecif ied,seizure, large hiatal hernia, anxiety disorder, personal history ofpulmonary e mbolus,COPD, GERD, Schizophrenia unspecified, Kyphosis, Parkinsondisease, Severe inte llectual disabilities.and Generalized muscle weakness.As per the long-term transfe r record, the patient was transferred to the EDfor Hypoxia, he was found with O2 SAT 77 % on O2 NC 4 LPM and tachypneic. Hewas later placed on NRBM. Patient has a vivian gged jtube and the long-term hasbeen using the gtube site for feedings and administ ration of medications.Pt was seen at [facility] by fatemeh Shabazz and plans were for jtube pl acement, that wasscheduled for today.The patient is nonverbal and unable to parti cipate with his history.Patient was admitted with encounter diag of Acute Hypercapnei c and Hypoxemicrespiratory failure and aspiration pneumonia. 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 Pupils are equalNeck: Supple, symmetric al, no adenopathy, no carotid bruit and no JVD.Lungs: Bilateral air entry. Decrea sed breath sounds rml. No Wheezing orRhonchi. No rales.Chest wall: No Acc essory muscle use.Heart: Regular rate and rhythm, no murmur, or rub.Abdomen: Positive g/t. TF staining on abdominal binder, non-tender. Notdistended. Macrina l sounds normal. No massesExtremities: Lower limbs contractures. No cyanosis. No ed ivelisse. No clubbingSkin: Warm and dry. No rashes+ abrasion on right calf area. No t JaundicedLymph nodes: Cervical, supraclavicular normal.Psych: Not agit ated.Neurologic: EOMs intact. No facial asymmetry. Nonverbal. Generalized weakne ss,Alert and Awake.Intake and Output:Current Shift: No intake/output data recorded.L ast three shifts: 03/26 701 - 03/27 1900In: 2457.5 [I.V.:1372.5]Out: 2150 [Urine:215 0]Lab/Data Reviewed:Recent Days:Recent Labs 03/26/1908WB C 13.2* 14.2* 18.8*HGB 11.6* 10.7* 13.5*HCT 35.8* 33.6* 42.0PLT 349 270 365Recent La bs 03/26/1909NA 138 -- 143 -- 135*K 3 .7 -- 4.2 -- 3.5CL 100 -- 111* -- 93*CO2 29 31* 28 < > 39*GLU 104 -- 1 05 -- 95BUN 9 -- 12 -- 11CREA 0.32* -- 0.32* -- 0.48*CA 9.6 -- 8.0* -- 9 .6MG 1.8 -- 1.8 -- --PHOS 1.8* -- 2.3* -- --ALB 2.4* -- 1.9* -- 2.9*TBIL I -- -- -- -- 0.3SGOT -- -- -- -- 11*ALT -- -- -- -- 15 < > = values in this interval not displayed.Recent Labs 03/25/1904PH 7.40 7 .43PCO2 48 53*PO2 49* 86HCO3 30* 35*FIO2 28.0 100.0CULTURE, BLOOD [[id number]] (Order [id number])MicrobiologyDate: 03/25/2019 Department: [facility] 3t Med Surg Released By/ Authorizing:Jessie Neumann MD (auto-released)Specimen Information: Blo od Component Value Flag Ref Range Units StatusSpecial Requests: Preliminary NO SPECIAL REQUESTSCulture result: NO GROWTH 2 DAYSCULTURE, BLOOD [[id number]] (Order [id number])MicrobiologyDate: 03/25/2019 Department: [facility] 3t Med Surg Released By/ Authorizing:Jessie Neumann MD (auto-released)Specimen Information: Blo od Component Value Flag Ref Range Units StatusSpecial Requests: Preliminary NO SPECIAL REQUESTSCulture result: NO GROWTH 2 DAYSCt Chest Wo ContResult Date: 03/14History: Respiratory difficulty. FINDINGS: CT scanning of the chest waspe rformed helically from lung apices to the upper abdomen without intravenouscontras t dural. Sagittal and coronal reconstructed images are submitted.Scanning was perfor med utilizing dose lowering techniques and is compared to theprior study of 01/15/2019. Evaluation of thoracic vascular structures is limitedwithout intravenous contrast m aterial. There is, however, no definite CTevidence of dissection or focal aneury smal dilatation. Some peripheralcalcification is noted. There is no evidence of any pa thologically enlargedlymph node within the visualized portions of the mediastinum o r axillae. Somenonpathologically enlarged lymph nodes are seen. Again noted is angel vation of theleft hemidiaphragm. A left small pleural effusion is noted as well asatel ectatic change at the left lung base. Patchy opacity at the right lung baseis compati ble with a right basilar infiltrate. There is some patchy opacitywithin the right midd le lobe as well. The right basal infiltrate is greater insize than that seen previou sly. The pleural effusion is smaller. The rightmiddle lobe infiltrate is similar. Limited evaluation of upper abdominalstructures reveals a tube withi n the stomach directed toward the duodenum.Diffuse hypertrophic degenerati ve changes are noted of the thoracic spine. Thereis again noted to be shift of media stinal structures to the right.IMPRESSION: Worsening right lower lobe infiltrate. S light worsening of the rightmiddle lobe infiltrate. Improved left lung.Xr Chest PortResult Date: 03/25/2019CHEST one view HISTORY: Fever. Reflux. Gastrostomy. COM PARISON: 03/11/2019.There is a poor inspiratory effort which compromises thi s interpretation. Arepeat study is suggested. There is discoid atelectasis and/or lef t lower lobeinfiltrate.There is no gross evidence of congestion, other infiltrate s,effusions or pneumothorax.IMPRESSION: Possible left lower lobe infiltrate. Poo r inspiratory effort.Xr Chest PortResult Date: 03/11/2019CHEST one view HISTORY: Fever. COPD. Reflux. COMPARISON: 02/12/2019. Anadditional view was obtained. A tubula r structure overlies the stomach andmidabdomen with some gastric distenti on and elevation of the left hemidiaphragm.There is a poor inspirator y effort which compromises this interpretation. Arepeat study is suggest ed. .There is no gross evidence of congestion,infiltrates, effusions or pne umothorax. Old rib fractures are noted.IMPRESSION: No evidence of acute c ardiopulmonary disease. Poor inspiratoryeffort. Gastric distention.Me dications reviewedCurrent Facility-Administered MedicationsMedicat ion Dose Route Frequency potassium, sodium phosphates (NEUTRA-PHOS) packet 2 Packet 2 Packet Per GTube BID acetylcysteine (MUCOMYST) 100 mg/mL (10 %) nebulizer so lution 400 mg 4 mLInhalation BID RT sodium chloride (NS) flush 5-10 mL 5-10 mL Int raVENous PRN acetaminophen (TYLENOL) solution 650 mg 650 mg Per G Tube Q4H P RN cinacalcet (SENSIPAR) tablet 60 mg 60 mg Oral DAILY heparin (porcine) injection 5,000 Units 5,000 Units SubCUTAneous Q12H lamoTRIgine (LaMICtal) tablet 50 mg 50 mg Per G Tube BID valproic acid (as sodium salt) (DEPAKENE) 250 mg/5 mL (5 mL) oral solution 750mg 750 mg Per G Tube Q12H methylPREDNISolone (PF) (SOLU-MEDROL) in jection 40 mg 40 mg IntraVENous Q6H multivit-folic acid-herbal 275 (WELLESSE PLUS) oral liquid 30 mL 30 mL Per GTube DAILY ALPRAZolam (XANAX) tablet 0.25 mg 0.25 mg Per G Tube QPM cefepime (MAXIPIME) 1 g in 0.9% sodium chloride (MBP/ADV) 50 mL MBP 1 gIntraVENous Q8H albuterol-ipratropium (DUO-NEB) 2.5 MG-0 .5 MG/3 ML 3 mL Nebulization Q6H RT vancomycin (VANCOCIN) 1,000 mg in 0.9% s odium chloride 250 mL IVPB 1,000 mgIntraVENous Q12H budesonide (PULMICOR T) 500 mcg/2 ml nebulizer suspension 500 mcg NebulizationBID RTAssessment/Plan:Hospit al Problems Date Reviewed: 03/27/2019 Codes Class Noted POA Acute hypoxemic re spiratory failure (HCC) ICD-10-CM: J96.01ICD-9-CM: 518.81 03/25/2019 Unkno wnAssessment:Acute Hypercapneic, Hypoxemic Respiratory FailureAspiration PneumoniaC OPDLeukocytosis- trending downwardMalfunctioning jtubeDysphagia ( s/p gtube conversion to jtube on 02/07/19)Anxiety DisorderHyperparathyroi d Unspecified typeMentally challengedSeizure disorderHyponatremia- stableHypophosphat ePlan:Continue IV cefepime and vancomycin per IDVM, PRN BIPAP per pulmonaryS/p PEG con version to PEJ on 03/26/19Iv steroidsnebulizersFollow up culturesIV f luidsMonitor Teofilo Mora 2018Time: 11:57 PM Name Value Range Interpretation Code Description Data Harriett rce(s) Supporting Document(s ) ID Date Data Source [id number] 03/28/2019 07:28:35 AM EST [facility] Bedside and Verbal shift change report g iven to Kait RN (oncoming nurse) Yves Bonilla RN(offgoing nurse). Report given with SBAR, Kardex, Intake/Output, MAR and RecentResults. Name Value Range Interpretation Code Description Data Harriett rce(s) Supporting Document(s ) ID Date Data Source [id number] 03/28/2019 09:18:07 AM EST [facility] - [facility] Name Value Range Interpretation Description Data Sup porting Code Source(s) Document(s ) Leukocytes 9.1 K/uL 4.8-10.6 [facility] - [#/volume] in Good Blood by [facility] Erythrocytes 3.70 4.70-6.0 Below low normal [facility] - [#/volume] in M/uL 0 Good Blood by [facility] Hemoglobin 11.6 14.0-18. Below low normal [facility] - [Mass/volume] in g/dL 0 [facility] Blood [facility] Hematocrit 34.4 % 42.0-52. Below low normal [facility] - [Volume 0 Good Fraction] of [facility] Blood by Hospital Automated count Erythrocyte mean 93.0 FL 81.0-94. [facility] - corpuscular 0 Good volume [Entitic Taoist volume] by Hospital Automated count Erythrocyte mean 31.4 PG 27.0-35. [facility] - corpuscular 0 Good hemoglobin [facility]ist [Entitic mass] [facility] by Automated count Erythrocyte mean 33.7 30.7-37. [facility] - corpuscular g/dL 3 Good hemoglobin [facility] concentration [facility] [Mass/volume] by Automated count Erythrocyte 15.9 % 11.5-14. Above high normal [facility] - distribution 0 Good width [Ratio] by [facility] Platelets 301 K/uL 130-400 [facility] - [#/volume] in Good Blood by [facility] Platelet mean 10.6 FL 9.2-11.8 [facility] - volume [Entitic Good volume] in Blood [facility] by Automated Hospital count Segmented 92 % 48-72 Above high normal [facility] - neutrophils/100 Good leukocytes in [facility] Blood by Manual Hospital count Band form 2 % <1 Above high normal [facility] - neutrophils/100 Good leukocytes in [facility] Blood by Manual Hospital count Lymphocytes/100 3 % 18-40 Below low normal [facility] - leukocytes in Good Blood by Manual [facility] Monocytes/100 3 % 2-12 [facility] - leukocytes in Good Blood by Manual [facility] 1+ANISOCYTOSISFEWTARGET CELLS Platelet adequacy [Presence] in Blood by [facility] Light microscopy Differential cell count method - Blood [facility] ID Date Data Source [id number] 03/28/2019 08:08:48 AM EST [facility] Name Value Range Interpretation Description Data Sup porting Code Source(s) Document(s ) Sodium 138 136-145 [facility] - Good [Moles/volume] mmol/L [facility] in Serum or Hospital Plasma Potassium 3.9 3.5-5.1 [facility] - Good [Moles/volume] mmol/L [facility] in Serum or Hospital Plasma Chloride 103 98-107 [facility] - Good [Moles/volume] mmol/L [facility] in Serum or Hospital Plasma Carbon 29 21-32 [facility] - Good dioxide, total mmol/L [facility] [Moles/volume] Hospital in Serum or Plasma Anion gap in 10 10-20 [facility] - Good Serum or mmol/L [facility] Plasma Hospital Glucose 134 74-106 Above high normal [facility] - Good [Mass/volume] mg/dL [facility] in Serum or Hospital Plasma Urea nitrogen 15 mg/dL 7-18 [facility] - Good [Mass/volume] [facility] in Serum or Hospital Plasma Creatinine 0.39 0.70-1.3 Below low normal [facility] - Good [Mass/volume] mg/dL 0 [facility] in Serum or Hospital Plasma Glomerular >60 [facility] - Good filtration [facility] rate/1.73 sq M Hospital predicted among blacks [Volume Rate/Area] in Serum or Plasma by Creatinine-bas ed formula (MDRD) Glomerular >60 [facility] - Good filtration [facility] rate/1.73 sq M Hospital predicted among non-blacks [Volume Rate/Area] in Serum or Plasma by Creatinine-bas ed formula (MDRD) Calcium 9.5 8.5-10.1 [facility] - Good [Mass/volume] mg/dL [facility] in Serum or Hospital Plasma Phosphate 2.3 2.5-4.9 Below low normal [facility] - Good [Mass/volume] mg/dL [facility] in Serum or Hospital Plasma Albumin 2.2 g/dL 3.5-4.7 Below low normal [facility] - Good [Mass/volume] [facility] in Serum or Hospital Plasma by Bromocresol purple (BCP) dye binding method ID Date Data Source [id number] 03/28/2019 08:08:48 AM EST [facility] Name Value Range Interpretation Description Data Sup porting Code Source(s) Document(s ) Magnesium 2.0 mg/dL 1.6-2.6 [facility] - Good [Mass/volume] [facility] in Serum or Hospital Plasma ID Date Data Source [id number] 03/28/2019 02:58:03 AM EST [facility] Problem: Pressure Injury - Risk ofGoal: *Prevention of pressure injuryDescriptionDocument Butch Scale a nd appropriate interventions in the flowsheet.Outcome: Progressing Towards G oalNote: Pressure Injury Interventions:Sensory Interventions: Ass ess changes in LOCMoisture Interventions: Absorbent underpadsActivity Intervention s: Pressure redistribution bed/mattress(bed type)Mobility Interventions: Pressure re distribution bed/mattress (bed type)Nutrition Interventions: Document food/fluid/suppl ement intakeFriction and Shear Interventions: Apply protective barrier, creams andemol lientsProblem: Patient Education: Go to Patient Education ActivityGoal: Patient/ Family EducationOutcome: Progressing Towards GoalProblem: Falls - Risk ofGoal: *Absen ce of FallsDescriptionDocument Samra Fall Risk and appropriate interventions in e flowsheet.Outcome: Progressing Towards GoalNote: Fall Risk Interventions:Mentat ion Interventions: Adequate sleep, hydration, pain controlElimination Interventions: T oilet paper/wipes in reachProblem: Patient Education: Go to Patient Education Activ ityGoal: Patient/Family EducationOutcome: Progressing Towards GoalProblem: PainGoa l: *Control of PainOutcome: Progressing Towards GoalProblem: Breathing Pattern - IneffectiveGoal: *Absence of hypoxiaOutcome: Progressing Towards GoalGoal: *PALLIATIV E CARE: Alleviation of DyspneaOutcome: Progressing Towards GoalProblem: Patient Education: Go to Patient Education ActivityGoal: Patient/Family EducationOu tcome: Progressing Towards GoalProblem: Seizure Disorder (Adult)Goal: *STG: Lnidsey ins free of seizure activityOutcome: Progressing Towards GoalGoal: *STG: Main tains lab values within therapeutic rangeOutcome: Progressing Towards GoalGo al: *STG/LTG: Complies with medication therapyOutcome: Progressing Towards Goal Goal: *STG: Remains free of injury during seizure activityOutcome: Progressing [place] GoalGoal: *STG: Remains safe in hospitalOutcome: Progressing Towards Goa lGoal: InterventionsOutcome: Progressing Towards GoalProblem: Patient Education: Go to Patient Education ActivityGoal: Patient/Family EducationOutcome: Progres sing Towards GoalProblem: Nutrition DeficitGoal: *Tolerating enteral feeding Outcome: Progressing Towards Goal Name Value Range Interpretation Code Description Data [facility] rce(s) Supporting Document(s ) ID Date Data Source [id number] 03/27/2019 10:12:36 PM EST [facility] Name Value Range Interpretation Description Data Sup porting Code Source(s) Document(s ) Vancomycin 13.2 10-20 [facility] - Good [Mass/volume] ug/mL [facility] in Serum or Hospital Plasma --trough (NOTE)Trough levels of 15-20 ug/mL shoul d be targeted for patients withcoagulase negative Staphylococcus and MRSA pneumon ia, endocarditis,osteomyelitis, meningitis, and bacteremia; as well as patients notr esponding to lower levels. Trough levels of 10-15 ug/mL forinfections from other [facility] rces (e.g. urinary tract, cellulitis) areappropriate. All patients receiving c oncomitant nephrotoxic therapiesshould have their function closely monitored regardl ess of peak ortrough levels. ID Date Data Source [id number] 03/27/2019 07:39:26 PM EST [facility] Bedside and Verbal shift change report carol Ochoa RN (oncoming nurse) Kvng Carpio RN (offgoing nurse). Report included the followinginformation SBAR, Kardex, MAR, Recent Results, Med Rec Sta tus and Cardiac RhythmNSR, Sinus Matthew. Name Value Range Interpretation Code Description Data [facility] rce(s) Supporting Document(s ) ID Date Data Source [id number] 03/27/2019 07:02:49 PM EST [facility] - [facility] Progress NoteMID-N[facility]. ,P.C.Krystian Monae MD., F.C.C.P.Stella Hamilton MD., F.C.C.P. [address] [place] [address] [place] [address] [phone]: Evelio Carlin Sex: male DOA: 03/25/2019D ate of : 1950 Age: 68 y.o. LOS: LOS: 2 daysSubjective: Reyes Carlin is a 68 y.o. male with history of COPD, GERD,hyperparathyroidism, Parkinso nism, pneumonia, schizophrenia, and pulmonaryemboli with a surgical history of gastrostomy who presents to the EmergencyDepartment via emergency medica l services sent in from long-term for hypoxiaand possible pneumonia. [facility] and cannot provide any history ofreview of systems at the time. PATIENT HAVE SEVERE CEREBRAL PALSY , MENTAL RETARDATION AND IS NON VERBAL .NO HX CANNOT BE CONF IRMED FROM PATIENT , CHART IS REVIEWED.MULTIPLE ADMISSIONS FOR ASPIRA TION PNEUMONIA , HE IS BED RIDDEN . PATIENTT NOW IS ON BIPAP SUPPORT SPO2 = 96% ON FIO2 65% .HR IS SLIGHTLY MORE AWAKE AND ALERT . 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 No pertinent family history.No Known All ergiesPrior to Admission medicationsMedication Sig Start Date End Date Taking? Authorizing Providerheparin sodium,porcine (HEPARIN, PORCINE,) 5,000 unit/mL injection 1 mL bySubCUTAneous route every twelve (12) hours every twelve (12 ) hours. 03/17/19 Mili Hills DOmultivitamin (MULTI-DELYN, WELLESSE) l iqd 5 mL by Per G Tube route daily.03/17/19 Mili Hills DOacetaminophen (TYLEN OL) 32MG/ML soln solution Take 20.3 mL by mouth every four(4) hours as needed for Pain or Fever. 03/17/19 Mili Hills DOvalproic acid, as sodium salt, (DEPAKE NE) 250 mg/5 mL (5 mL) soln oral [id number] mg by Per G Tube route every twelve (12) hours. Provider, Edieacetylcysteine (MUCOMYST) 100 mg/mL (10 %) nebulizer solution Take 4 mL byinhalation two (2) times a day. Provider, Edieclorazepate (TRANXENE) 3.75 mg tablet 1 Tab by Per G Tube route nightly. MaxDaily Amount: 3.75 mg. 12/30/18 Mili Hills DOcinacalcet (SENSIPA R) 30 mg tablet Take 2 Tabs by mouth daily.Patient taking differently: 30 mg daily. Via G tube 12/30/18 Mili HillsDOlamoTRIgine (LAMICTAL) 25 mg t ablet 2 Tabs by Per G Tube route two (2) times aday. 12/30/18 Mili Hills DOalbuterol-ipratropium (DUO-NEB) 2.5 mg-0.5 mg/3 ml nebu 3 mL by Nebulizationroute e very six (6) hours. Every 6 hours while awakePatient taking differently: 3 mL by Nebulization route every four (4) hours asneeded. Every 6 hours while awake 12/30 Mili Hills DObudesonide (PULMICORT) 0.5 mg/2 mL nbsp 2 mL by Neb ulization route two (2) timesa day. 12/30/18 Mili Hills DO REVIEW OF SYSTEMS : SEVERE MENTAL RETARDATION , CANNOT DO ROS .General: negative for fever, chill s, sweats, weaknessEyes: negative for blurred vision, eye pain, loss of vision, diplop iaEar Nose and Throat: negative for rhinorrhea, pharyngitis, otalgia, tinnit us,speech or swallowing difficultiesRespiratory: negative for c ough, sputum production, SOB, wheezing, DAVALOS,pleuritic painCardiology: negative for chest pain, palpitations, orthopnea, PND, edema,syncopeGastrointestinal: negative for abdominal pain, N/V, dysphagia, change in bowelhabits, bleedingGenitourinary: nega tive for frequency, urgency, dysuria, hematuria, incontinenceMuskuloskeletal : negative for arthralgia, myalgiaHematology: negative for easy bruising, bleeding, ly mphadenopathyDermatological: negative for rash, ulceration, mole change, new lesio nEndocrine: negative for hot flashes or polydipsiaNeurological: negative for hea dache, dizziness, confusion, focal weakness,paresthesia, memory loss, gait disturbancePsychological: negative for anxiety, depression, agitation Objectiv e:VITALS:Objective:Vital Signs:Patient Vitals for the past 24 hrs: BP Temp Pulse Resp [id number]/27/19 1539 128/71 97 F (36.1 C) 68 15 97 %03/27/19 1103 108/57 96.4 F (35. 8 C) (!) 48 20 96 %03/27/19 0745 151/70 97 F (36.1 C) (!) 45 19 95 %03/27/19 0354 (!) 150/95 97.8 F (36.6 C) 71 18 94 %03/27/19 0243 - - - - 97 %03/26/19 2330 (!) 168/95 98.1 F (36.7 C) 74 18 96 %03/26/19 2213 - - - - 96 %03/26/192010 (!) 178/98 98 F (36.7 C) 80 18 95 %Pulse OX:SpO2 Readings from Last 6 Encounters: 03/27/19 97%03/17/19 92%02/19/19 96%02/18/19 92%01/24/19 93%12/30/18 96%@LASTSAO2(6)@ Physical Exam:ON BIPAP OFF AND ON , MORE AWAKE TODAY , COMFORTABLE . Gen eral: Alert, cooperative, no distress, appears stated age. Head: N ormocephalic, without obvious abnormality, atraumatic. Eyes: Conjuncti vae/corneas clear. PERRL, EOMs intact. Nose: Nares normal. No drainage or sinus tenderness Throat: Lips, mucosa, and tongue normal Nec k: Supple, symmetrical, trachea midline, no adenopathy,thyroid: no enlargem ent/tenderness/nodules, no carotid bruit and no JVD. Lungs: WHEEZING AND RALES ARE LESS , RALE L L L > R L L toauscultation bilaterally. Chest Wall: No tenderness or deformity. Heart: Regular rate and rhythm, S1, S2 normal, no murmur, click,rub or gallop. Abdomen: Soft, non-tender. Bowel soun ds normal. No masses, No organomegaly. Extremities: Extremities normal, atrau matic, no cyanosis or edema. Pulses: 4+ bilaterally. Skin: Ski n color, texture, turgor normal. No rashes or lesions. Neurologic: CNII-XII intact. No focal motor or sensory deficit.Intake and Output:Last three shifts: 03/25 1901 - 03/27 0700In: 2612.5 [I.V.:2512.5]Out: 700 [Urine:700]Lab Results:Recent Results (f rom the past 24 hour(s))RENAL FUNCTION PANEL Collection Time: 03/27/19 6:45 AMResult Value Ref Range Sodium 138 136 - 145 mmol/L Potassium 3.7 3.5 - 5.1 mmol/L Chloride 100 98 - 107 mmol/L CO2 29 21 - 32 mmol/L Anion gap 13 10 - 20 mmol/L Glucose 104 74 - 106 mg/dL BUN 9 7 - 18 mg/dL Creatinine 0.32 (L) 0.70 - 1.30 mg/dL GFR est AA >6 0 >60 ml/min/1.73m2 GFR est non-AA >60 >60 ml/min/1.73m2 Calcium 9.6 8.5 - 10.1 mg/ dL Phosphorus 1.8 (L) 2.5 - 4.9 mg/dL Albumin 2.4 (L) 3.5 - 4.7 g/dLCBC WITH AUTOMATED DIFF Collection Time: 03/27/19 6:45 AMResult Value Ref Range WBC 13.2 (H) 4. 8 - 10.6 K/uL RBC 3.76 (L) 4.70 - 6.00 M/uL HGB 11.6 (L) 14.0 - 18.0 g/dL HCT 35.8 ( L) 42.0 - 52.0 % MCV 95.2 (H) 81.0 - 94.0 FL MCH 30.9 27.0 - 35.0 PG MCHC 32.4 30.7 - 37.3 g/dL RDW 15.9 (H) 11.5 - 14.0 % PLATELET 349 130 - 400 K/uL MPV 10.4 9.2 - 11.8 FL NEUTROPHILS 88 (H) 48.0 - 72.0 % LYMPHOCYTES 8 (L) 18.0 - 40.0 % MONOCYTE S 4 2.0 - 12.0 % EOSINOPHILS 0 0.0 - 7.0 % BASOPHILS 0 0.0 - 3.0 % ABS. NEUTROPHILS 11.6 (H) 1.5 - 6.6 K/UL ABS. LYMPHOCYTES 1.0 (L) 1.5 - 3.5 K/UL ABS. MONOCYTES 0.5 0. 0 - 1.0 K/UL ABS. EOSINOPHILS 0.0 0.0 - 0.7 K/UL ABS. BASOPHILS 0.0 0.0 - 0.1 K/UL D F AUTOMATED IMMATURE GRANULOCYTES 0 0.0 - 2.0 %MAGNESIUM Collection Time: 03/27/19 6: 45 AMResult Value Ref Range Magnesium 1.8 1.6 - 2.6 mg/dLGLUCOSE, POC Collection Time: 03/27/19 11:51 AMResult Value Ref Range Glucose, bedside 142 (H) 65 - 110 MG/DLG LUCOSE, POC Collection Time: 03/27/19 4:42 PMResult Value Ref Range Glucose, bedsid e 113 (H) 65 - 110 MG/DLABG:Recent Labs 03/25/1904PH 7.40 7.43PCO 2 48 53*PO2 49* 86HCO3 30* 35*FIO2 28.0 100.0Recent Glucose Results:Lab ResultsC omponent Value Date/Time GLU 104 03/27/2019 06:45 AM GLUCPOC 113 (H) 03/27/2019 04:4 2 PM GLUCPOC 142 (H) 03/27/2019 11:51 AM@LABAPCYTOINTERPRETATION@CULTURESAll M icro Results Procedure Component Value Units Date/Time CULTURE, BLOOD [[id number]] Col lected: 03/25/195 Order Status: Completed Specimen: Blood Updated: 611 Special Requests: NO SPECIAL REQUESTS Culture result: NO GROWTH 2 DA YS CULTURE, BLOOD [[id number]] Collected: 03/25/19309 Order Status: Completed S pecimen: Blood Updated: 03/27/19611 Special Requests: NO SPECIAL REQUESTS C ulture result: NO GROWTH 2 DAYSImages:@IMAGESENCORD@Ct Chest Wo Con tResult Date: 03/14/2019History: Respiratory difficulty. FINDINGS: CT scanning of the chest wasperformed helically from lung apices to the upper abdomen without intr avenouscontrast dural. Sagittal and coronal reconstructed images are submitted.Scann ing was performed utilizing dose lowering techniques and is compared to theprior s tudy of 01/15/2019. Evaluation of thoracic vascular structures is limitedwithout in travenous contrast material. There is, however, no definite CTevidence of disse ction or focal aneurysmal dilatation. Some peripheralcalcification is noted. There is no evidence of any pathologically enlargedlymph node within the visualized portions of the mediastinum or axillae. Somenonpathologically enlarged lymph nod es are seen. Again noted is elevation of theleft hemidiaphragm. A left small pleu ral effusion is noted as well asatelectatic change at the left lung base. Patchy opa city at the right lung baseis compatible with a right basilar infiltrate. There is tamie e patchy opacitywithin the right middle lobe as well. The right basal infiltrate is g reater insize than that seen previously. The pleural effusion is smaller. The rightmi ddle lobe infiltrate is similar. Limited evaluation of upper abdominalstructures reveals a tube within the stomach directed toward the duodenum.Diffuse hypertrophic degenerative changes are noted of the thoracic spine. Thereis again noted to b e shift of mediastinal structures to the right.IMPRESSION: Worsening right lower lobe infiltrate. Slight worsening of the rightmiddle lobe infiltrate. Improved le ft lung.Xr Chest PortResult Date: 03/25/2019CHEST one view HISTORY: Fever. Reflux. Gastrostomy. COMPARISON: 03/11/2019.There is a poor inspiratory e ffort which compromises this interpretation. Arepeat study is suggested. There is di scoid atelectasis and/or left lower lobeinfiltrate.There is no gross evidenc e of congestion, other infiltrates,effusions or pneumothorax.IMPRESSION: Possible lef t lower lobe infiltrate. Poor inspiratory effort.Xr Chest PortResult Date: 019CHEST one view HISTORY: Fever. COPD. Reflux. COMPARISON: 02/12/2019. Anadditi onal view was obtained. A tubular structure overlies the stomach andmidabdomen with some gastric distention and elevation of the left hemidiaphragm.There is a poor inspi ratory effort which compromises this interpretation. Arepeat study is suggest ed. .There is no gross evidence of congestion,infiltrates, effusions or pne umothorax. Old rib fractures are noted.IMPRESSION: No evidence of acute c ardiopulmonary disease. Poor inspiratoryeffort. Gastric distention.Me dications:Current Facility-Administered MedicationsMedication Dose Route Frequen cy potassium, sodium phosphates (NEUTRA-PHOS) packet 2 Packet 2 Packet Per GTube BID acetylcysteine (MUCOMYST) 100 mg/mL (10 %) nebulizer solution 400 mg 4 mLInhalation BID RT sodium chloride (NS) flush 5-10 mL 5-10 mL IntraVENous PRN acetaminophen (TYLENOL) solution 650 mg 650 mg Per G Tube Q4H PRN cinacalcet (SENSI PAR) tablet 60 mg 60 mg Oral DAILY heparin (porcine) injection 5,000 Units 5,000 U nits SubCUTAneous Q12H lamoTRIgine (LaMICtal) tablet 50 mg 50 mg Per G Tub e BID valproic acid (as sodium salt) (DEPAKENE) 250 mg/5 mL (5 mL) oral solut ion 750mg 750 mg Per G Tube Q12H methylPREDNISolone (PF) (SOLU-MEDROL) in jection 40 mg 40 mg IntraVENous Q6H multivit-folic acid-herbal 275 (WELLESSE PLUS) oral liquid 30 mL 30 mL Per GTube DAILY ALPRAZolam (XANAX) tablet 0.25 mg 0.25 mg Per G Tube QPM cefepime (MAXIPIME) 1 g in 0.9% sodium chloride (MBP/ADV) 50 mL MBP 1 gIntraVENous Q8H albuterol-ipratropium (DUO-NEB) 2.5 MG-0 .5 MG/3 ML 3 mL Nebulization Q6H RT vancomycin (VANCOCIN) 1,000 mg in 0.9% s odium chloride 250 mL IVPB 1,000 mgIntraVENous Q12H budesonide (PULMICOR T) 500 mcg/2 ml nebulizer suspension 500 mcg NebulizationBID RTActive Problems: Acut e hypoxemic respiratory failure (HCC) (03/25/2019)Assessment:1. ACUTE HYPERCA PNIC AND HYPOXIC RESPIRATORY FAILURE2. SEVER COPD3. ASPIRATION PNEUMONIA4. SMALL A TELECTASIS L L L5. CLOGGED P E G6. PARKINSONISM7. MENTAL RETARDATION Jocelyn n:1. CONT BIPAP SUPPORT I P A P/ E P A P = 12/7 CM ,,RATE = 18 , FIO2 65%, TIT E RATE DOWN FIO2 65 % KEEP SPO2 > 92%2. CULTURE BLOOD , SPUTUM , URINE3. AGREE WITH I V CEFEPIME AND VANCOMYCIN4. I V SOLUMEDROL5. DUO NEB QID6. I V FLUIDS 7. CHEST PT8. SOME IMPROVEMENT NOTED ., CONT SAME TREATMENT Krystian Monae MD F.C .C.P.March 27, 20196:57 PM Name Value Range Interpretation Code Description Data Harriett rce(s) Supporting Document(s ) ID Date Data Source [id number] 03/27/2019 05:53:16 PM EST [facility] ID Progress Note03/27/2019Subjective:Dulce ke non verbal,off BiPAP,unable to provide historyWbc trending downBlood culture no growth.AfebrileObjective:Review of SystemsUnable to provide.Vitals:Patient Vitals for the past 24 hrs: BP Temp Pulse Resp OlG448/13/19 1539 128/71 97 F (36. 1 C) 68 15 97 %03/27/19 1103 108/57 96.4 F (35.8 C) (!) 48 20 96 %03/27/19 0745 15 97 F (36.1 C) (!) 45 19 95 %03/27/19 0354 (!) 150/95 97.8 F (36.6 C) 71 18 94 %03/27/19 0243 - - - - 97 %03/26/19 2330 (!) 168/95 98.1 F (36.7 C) 74 18 96 %1 05/27/18 2213 - - - - 96 %03/26/192010 (!) 178/98 98 F (36.7 C) 80 18 95 % 9 1643 156/86 97.9 F (36.6 C) 73 18 94 %Tmax: Temp (24hrs), Av.5 F (36.4 C), Min:96.4 F (35.8 C), Max:98.1 F(36.7 C)Physical Exam:General: Awake, nonverb al cooperative, no distress, appears stated age.Eyes: Conjunctivae/corneas clear. P ERRLNeck: Supple, symmetrical, trachea midline, no adenopathyLungs: Bilateral breath sounds with basal crackles..Heart: Regular rate and rhythm, S1, S2 normal, no murmurAbdomen: Soft, non-tender. Bowel sounds normal. No masses, Noorganomegal y.peg+Back: No CVA tenderness.Extremities: Chronic lymphedema, no cyanosisPulses: 2 + and symmetric all extremities.Skin: Skin color, texture, turgor normal. No rashes or lesionsCurrent Facility-Administered MedicationsMedication Dose Route Frequen cy potassium, sodium phosphates (NEUTRA-PHOS) packet 2 Packet 2 Packet Per GTube BID acetylcysteine (MUCOMYST) 100 mg/mL (10 %) nebulizer solution 400 mg 4 mLInhalation BID RT sodium chloride (NS) flush 5-10 mL 5-10 mL IntraVENous PRN acetaminophen (TYLENOL) solution 650 mg 650 mg Per G Tube Q4H PRN cinacalcet (SENSI PAR) tablet 60 mg 60 mg Oral DAILY heparin (porcine) injection 5,000 Units 5,000 U nits SubCUTAneous Q12H lamoTRIgine (LaMICtal) tablet 50 mg 50 mg Per G Tub e BID valproic acid (as sodium salt) (DEPAKENE) 250 mg/5 mL (5 mL) oral solut ion 750mg 750 mg Per G Tube Q12H methylPREDNISolone (PF) (SOLU-MEDROL) in jection 40 mg 40 mg IntraVENous Q6H multivit-folic acid-herbal 275 (WELLESSE PLUS) oral liquid 30 mL 30 mL Per GTube DAILY ALPRAZolam (XANAX) tablet 0.25 mg 0.25 mg Per G Tube QPM cefepime (MAXIPIME) 1 g in 0.9% sodium chloride (MBP/ADV) 50 mL MBP 1 gIntraVENous Q8H albuterol-ipratropium (DUO-NEB) 2.5 MG-0 .5 MG/3 ML 3 mL Nebulization Q6H RT vancomycin (VANCOCIN) 1,000 mg in 0.9% s odium chloride 250 mL IVPB 1,000 mgIntraVENous Q12H budesonide (PULMICOR T) 500 mcg/2 ml nebulizer suspension 500 mcg NebulizationBID RTLabs:Recent Labs 03/26/1908WBC 13.2* 14.2* 18.8*HGB 11.6* 10.7* 13.5*PLT 349 270 365BUN 9 12 11CREA 0.32* 0.32* 0.48*SGOT -- -- 11*AP -- -- 83TBILI -- - - 0.3Cultures:Lab ResultsComponent Value Date/Time Culture result: NO GROWTH 2 DA YS 03/25/2019 03:10 AM Culture result: NO GROWTH 2 DAYS 03/25/2019 02:55 AM Cultur e result: NO GROWTH 5 DAYS 03/11/2019 04:14 AM Culture result: NO GROWTH 5 DAYS 02/14 04:14 AMRadiology:No results found.Assessment: Recurrent aspiration pneumonia. Acute COPD exacerbation Acute hypercapnic respiratory failure. Dyspha jaydon s/p peg placement.. Atelectasis R/o sepsis. Plan:1. Continue IV cefepime and vancomycin2. Follow cultures.Ntaasha Dudley MDDecember 20184:14 PM Name Value Range Interpretation Code Description Data Harriett rce(s) Supporting Document(s ) ID Date Data Source [id number] 03/27/2019 04:53:18 PM EST [facility] Name Value Range Interpretation Description Data Sup porting Code Source(s) Document(s ) Glucose 113 MG/DL 65-110 Above high normal [facility] [Mass/volume] Taoist in Blood by [facility] Automated test strip ID Date Data Source [id number] 03/27/2019 03:48:03 PM EST [facility] YUAN started and placed in chart Name Value Range Interpretation Code Description Data Harriett rce(s) Supporting Document(s ) ID Date Data Source [id number] 03/27/2019 11:53:54 AM [facility] Progress Bella Chase y.o.Adm it Date: 03/25/2019Active Problems: Acute hypoxemic respiratory failure (HCC) (02/2019)Subjective:Patient is less lthargic, non verbalPertinent items are noted in t he History of Present Illness.Objective:Visit VitalsBP 108/57 (BP 1 Location: Right ar m, BP Patient Position: At rest;Supine)Pulse (!) 48Temp 96.4 F (35.8 C)Resp 20Wt 54 .4 kg (120 lb)SpO2 96%BMI 21.95 kg/m Intake and Output:Date 03/26/19699 - 03/27/19 0659 03/27/19699 - 03/28/19 0659Shift 2693-8643 2507-9686 24 Hour Total 0700-1 859 2602-6760 24 Hour TotalINTAKEI.V.(mL/kg/hr) 200(0.3) 1172. 5(1.8) 1372.5(1.1) Volume (dextrose 5% and 0.9% NaCl infusion) 922.5 922.5 Volume (lactated Ringers infusion) 200 200 Volume (vancomycin (VANCOCIN) 1,000 mg in 0.9% sodium chloride 250 mL IVPB)250 250NG/GT 100 100 Water Flush Volume (mL) (PEG/Gastro stomy Tube) 100 100Shift Total(mL/kg) 200(3.7) 1272.5(23.4) 1472.5(27.1)OUTPUT Urine(mL/kg/hr) 700(1.1) 700(0.5) Urine Voided 700 700Shift Total(mL/kg) 700(1 2.9) 700(12.9)NET 200 572.5 772.5Weight (kg) 54.4 54.4 54.4 54.4 54.4 54.4Medications Reviewed:Current Facility-Administered MedicationsMedication Dose Route Frequen cy Provider Last Rate Last Dose potassium, sodium phosphates (NEUTRA-PHOS) packet 2 Packet 2 Packet Per GTube BID Mili Hills DO dextrose 5% and 0.9% NaCl i nfusion 50 mL/hr IntraVENous CONTINUOUS Oralia Frankel MD 50 mL/hr at 03/26/19 12 00 50 mL/hr at 03/26/19 1200 sodium chloride (NS) flush 5-10 mL 5-10 mL IntraVENous PRN Jessie Neumann MD acetaminophen (TYLENOL) solution 650 mg 650 mg Per G Tube Q4H PRN Mili Hills DO cinacalcet (SENSIPAR) tablet 60 mg 60 mg Oral KYLEIGH Y Mili Hills DO 60mg at 03/27/19 0932 heparin (porcine) injection 5,000 Units 5,000 Units SubCUTAneous Q12H Mili Hills DO 5,000 Units at 03/15 07/01 0936 lamoTRIgine (LaMICtal) tablet 50 mg 50 mg Per G Tube BID Mili Hills DO50 mg at 03/27/19 0932 valproic acid (as sodium salt) (DEPAKENE) 250 mg/5 mL (5 m L) oral solution 750mg 750 mg Per G Tube Q12H Mili Hills DO 750 mg at 0932 methylPREDNISolone (PF) (SOLU-MEDROL) injection 40 mg 40 mg Int raVENous K3OFxhkezMili buchanan DO 40 mg at 03/27/19 0626 multivit-folic acid-herba l 275 (WELLESSE PLUS) oral liquid 30 mL 30 mL Per GTube DAILY Mili Hills, DO 30 mL at 03/27/19 0934 ALPRAZolam (XANAX) tablet 0.25 mg 0.25 mg Per G Tube QPM N dewayneMili, DO0.25 mg at 03/26/19 1732 cefepime (MAXIPIME) 1 g in 0.9% sodium c hloride (MBP/ADV) 50 mL MBP 1 gIntraVENous Q8H Mili Hills, DO 100 mL/hr at 0626 1 g at 626 acetylcysteine (MUCOMYST) 100 mg/mL (10 %) nebulizer solution 400 mg 4 mLInhalation Q6H RT Mili Hills DO 400 mg at 1 05/28/18 0808 albuterol-ipratropium (DUO-NEB) 2.5 MG-0.5 MG/3 ML 3 mL Nebulization Q6 H RTMili Hills, DO 3 mL at 03/27/19 0808 vancomycin (VANCOCIN) 1,000 mg in 0.9% sodium chloride 250 mL IVPB 1,000 mgIntraVENous Q12H Natasha Dudley MD 125 mL/hr at 03/27/19 0937 1,000 mg at105/28/18 0937 budesonide (PULMICORT) 500 mcg/2 m l nebulizer suspension 500 mcg NebulizationBID RT Pablo Flores MD 5 00 mcg at 03/27/19 0808Physical Exam:Physical Exam:General: Alert, cooperative, no di stress, appears stated age.Eyes: Conjunctivae/corneas clear.Neck: Supple, symmetrical, trachea midline, no adenopathy, thyroid: noenlargement/tenderness/nodule s, no carotid bruit and no JVD.Lungs: Clear to auscultation bilaterally.Heart: Regu lar rate and rhythm, S1, S2 normal, no murmur, click, rub or gallop.Abdomen: Soft, non-tender. Bowel sounds normal. No masses, No organomegaly.Extremities: Ex tremities normal, atraumatic, no cyanosis or edema,Pulses: 2+ and symmetric all extre mities.Skin: Skin color, texture, turgor normal. No rashes or lesionsData Review: Recent Results (from the past 24 hour(s))RENAL FUNCTION PANEL Collection Time: 03/27/19 6:45 AMResult Value Ref Range Sodium 138 136 - 145 mmol/L Potassium 3. 7 3.5 - 5.1 mmol/L Chloride 100 98 - 107 mmol/L CO2 29 21 - 32 mmol/L Anion gap 1 3 10 - 20 mmol/L Glucose 104 74 - 106 mg/dL BUN 9 7 - 18 mg/dL Creatinine 0.32 (L) 0 .70 - 1.30 mg/dL GFR est AA >60 >60 ml/min/1.73m2 GFR est non-AA >60 >60 ml/ min/1.73m2 Calcium 9.6 8.5 - 10.1 mg/dL Phosphorus 1.8 (L) 2.5 - 4.9 mg/dL Album in 2.4 (L) 3.5 - 4.7 g/dLCBC WITH AUTOMATED DIFF Collection Time: 03/27/19 6:45 AMR esult Value Ref Range WBC 13.2 (H) 4.8 - 10.6 K/uL RBC 3.76 (L) 4.70 - 6.00 M/uL HGB 1 1.6 (L) 14.0 - 18.0 g/dL HCT 35.8 (L) 42.0 - 52.0 % MCV 95.2 (H) 81.0 - 94.0 FL MCH 3 0.9 27.0 - 35.0 PG MCHC 32.4 30.7 - 37.3 g/dL RDW 15.9 (H) 11.5 - 14.0 % PLATELET 349 130 - 400 K/uL MPV 10.4 9.2 - 11.8 FL NEUTROPHILS 88 (H) 48.0 - 72.0 % LYMPHOC YTES 8 (L) 18.0 - 40.0 % MONOCYTES 4 2.0 - 12.0 % EOSINOPHILS 0 0.0 - 7.0 % BASOPHI LS 0 0.0 - 3.0 % ABS. NEUTROPHILS 11.6 (H) 1.5 - 6.6 K/UL ABS. LYMPHOCYTES 1.0 (L) 1.5 - 3.5 K/UL ABS. MONOCYTES 0.5 0.0 - 1.0 K/UL ABS. EOSINOPHILS 0.0 0.0 - 0.7 K/UL ABS. BASOPHILS 0.0 0.0 - 0.1 K/UL DF AUTOMATED IMMATURE GRANULOCYTES 0 0.0 - 2.0 %MAGNESIUM Collection Time: 03/27/19 6:45 AMResult Value Ref Range Magnesium 1.8 1.6 - 2.6 mg/dLImaging:No results found.Impression:Active Hospital Problem s Diagnosis Date Noted Acute hypoxemic respiratory failure (HCC) 03/25/2019 Hyponatremia, correctedPlan:Continue IV antibioticsStop ivfMinimal free waterRep lace lb7Oltv in [facility], MDDecember 2018 Name Value Range Interpretation Code Description Data Harriett rce(s) Supporting Document(s ) ID Date Data Source [id number] 03/27/2019 12:02:11 PM EST [facility] Name Value Range Interpretation Description Data Sup porting Code Source(s) Document(s ) Glucose 142 MG/DL 65-110 Above high normal [facility] [Mass/volume] Taoist in Blood by Hospital Automated test strip ID Date Data Source [id number] 03/27/2019 09:14:30 AM EST [facility] GI PROGRESS NOTENAME: Evelio Shukla hbeinDOB: 1950MRN: [id number]:The patient had his PE G converted to a PEJ yesterday but there appears to be amanufacturer's defect in the tube and it is leaking. Will try to fix it but ifunsuccessful will need to singleton e tube on Saturday by endoscopy.Objective:VITALS:Last 24hrs VS reviewed since prior progress note. Most recent are:Visit VitalsBP 151/70 (BP 1 L ocation: Right arm, BP Patient Position: At rest;Supine)Pulse (!) 45Temp 97 F (36.1 C)Resp 19Wt 54.4 kg (120 lb)SpO2 95%BMI 21.95 kg/m Intake/Output Summary (Last 2 4 hours) at 03/27/2019 0904Last data filed at 03/27/2019 0627Gross per 24 hourIntake 1 472.5 mlOutput 700 mlNet 772.5 mlPHYSICAL EXAM:Lungs: CTA Bilaterally.H eart: Regular rhythm,Abdomen: Soft, Non distended, Non tender. (+)Bowel sounds, no HSMLab Data Reviewed:Recent Labs 03/26/1908WBC 13.2* 14.2* HGB 11.6* 10.7*HCT 35.8* 33.6*PLT 349 270Recent Labs 03/26/1908NA -- 143 -- 135*K -- 4.2 -- 3.5CL -- 111* -- 93*CO2 31* 28 < > 39*BUN -- 12 -- 11CREA -- 0.32* -- 0.48*GLU -- 105 -- 95PHOS -- 2.3* -- --CA -- 8.0* -- 9.6 < > = values in this interval not displayed. Recent Labs 03/25/1903SGOT -- 11*AP -- 83TP -- 7.1ALB 1.9* 2.9 *GLOB -- 4.2 Patie nt Active Problem ListDiagnosis Code Parae sophageal hiatal hernia K44.9 COPD (chronic obstructive pulmonary disease) ([facility]) J44 .9 Acute respiratory distress R06.03 Pneumonia J18.9 COPD exacerbation ([facility]) J44.1 Sepsis due to undetermined organism ([facility]) A41.9 Generalized anxiety disorde r F41.1 Acute respiratory failure with hypoxia ([facility]) J96.01 Pneumonia involvin g right lung J18.9 Hyponatremia E87.1 SOB (shortness of breath) R06.02 Pressure i njury of right heel, stage [address]) L89.612 Leg wound, right, initial encounter S81. 801A Acute hypoxemic respiratory failure ([facility]) J96.01Assessment: Aspiration from PEG so it was converted to a PEJ yesterday which is nowleaking because of a crack i n the plastic cath.Plan: Continue feeds through a side tube and if unsuccessful than change tubesendoscopically on Saturday.Signed By: Nikos Martinez MD 9:04 AM Name Value Range Interpretation Code Description Data Harriett rce(s) Supporting Document(s ) ID Date Data Source [id number] 03/27/2019 07:51:50 AM EST [facility] Bedside and Verbal shift change report carol pham to KAIT RN (oncoming nurse) Yves Bonilla RN(offgoing nurse). Report given with SBAR, Kardex, Intake/Output, MAR and RecentResults. Name Value Range Interpretation Code Description Data Harriett rce(s) Supporting Document(s ) ID Date Data Source [id number] 03/27/2019 09:17:33 AM EST [facility] Name Value Range Interpretation Description Data Sup porting Code Source(s) Document(s ) Sodium 138 136-145 [facility] [Moles/volume] mmol/L Taoist in Serum or Hospital Plasma Potassium 3.7 3.5-5.1 [facility] [Moles/volume] mmol/L Taoist in Serum or Hospital Plasma Chloride 100 98-107 [facility] [Moles/volume] mmol/L Taoist in Serum or Hospital Plasma Carbon 29 21-32 [facility] dioxide, total mmol/L Taoist [Moles/volume] Hospital in Serum or Plasma Anion gap in 13 10-20 [facility] Serum or mmol/L Taoist Plasma Hospital Glucose 104 74-106 [facility] [Mass/volume] mg/dL Taoist in Serum or Hospital Plasma Urea nitrogen 9 mg/dL 7-18 [facility] [Mass/volume] Taoist in Serum or Hospital Plasma Creatinine 0.32 0.70-1.3 Below low normal [facility] [Mass/volume] mg/dL 0 Taoist in Serum or Hospital Plasma Glomerular >60 [facility] - [facility] filtration Taoist rate/1.73 sq M Hospital predicted among blacks [Volume Rate/Area] in Serum or Plasma by Creatinine-bas ed formula (MDRD) Glomerular >60 [facility] - Good filtration Taoist rate/1.73 sq M Hospital predicted among non-blacks [Volume Rate/Area] in Serum or Plasma by Creatinine-bas ed formula (MDRD) Calcium 9.6 8.5-10.1 [facility] [Mass/volume] mg/dL Taoist in Serum or Hospital Plasma Phosphate 1.8 2.5-4.9 Below low normal [facility] [Mass/volume] mg/dL Taoist in Serum or Hospital Plasma Albumin 2.4 g/dL 3.5-4.7 Below low normal [facility] [Mass/volume] Taoist in Serum or Hospital Plasma by Bromocresol purple (BCP) dye binding method ID Date Data Source [id number] 03/27/2019 09:17:33 AM EST [facility] Name Value Range Interpretation Description Data Sup porting Code Source(s) Document(s ) Magnesium 1.8 mg/dL 1.6-2.6 [facility] [Mass/volume] Taoist in Serum or Hospital Plasma ID Date Data Source [id number] 03/27/2019 08:54:53 AM EST [facility] Name Value Range Interpretation Description Data Sup porting Code Source(s) Document(s ) Leukocytes 13.2 4.8-10.6 Above high normal [facility] - [#/volume] in K/uL Good Blood by Taoist Automated [facility] Erythrocytes 3.76 4.70-6.0 Below low normal [facility] - [#/volume] in M/uL 0 Good Blood by [facility] Hemoglobin 11.6 14.0-18. Below low normal [facility] - [Mass/volume] in g/dL 0 Good Blood [facility] Hematocrit 35.8 % 42.0-52. Below low normal [facility] - [Volume 0 Good Fraction] of Taoist Blood by [facility] Automated count Erythrocyte mean 95.2 FL 81.0-94. Above high normal [facility] - corpuscular 0 Good volume [Entitic Taoist volume] by Hospital Automated count Erythrocyte mean 30.9 PG 27.0-35. [facility] - corpuscular 0 Good hemoglobin Taoist [Entitic mass] [facility] by Automated count Erythrocyte mean 32.4 30.7-37. [facility] - corpuscular g/dL 3 Good hemoglobin [facility] [Mass/volume] by Automated count Erythrocyte 15.9 % 11.5-14. Above high normal [facility] - distribution 0 Good width [Ratio] by Taoist Automated count Hospital Platelets 349 K/uL 130-400 [facility] - [#/volume] in [facility] Blood by Taoist Automated count [facility] Platelet mean 10.4 FL 9.2-11.8 [facility] - volume [Entitic Good volume] in [facility] Automated Hospital count Segmented 88 % 48.0-72. Above high normal [facility] - neutrophils/100 0 Good leukocytes in [facility] Lymphocytes/100 8 % 18.0-40. Below low normal [facility] - leukocytes in 0 [facility] Monocytes/100 4 % 2.0-12.0 [facility] - leukocytes in [facility] Eosinophils/100 0 % 0.0-7.0 [facility] - leukocytes in [facility] Basophils/100 0 % 0.0-3.0 [facility] - leukocytes in [facility] Segmented 11.6 1.5-6.6 Above high normal [facility] - neutrophils K/UL Good [#/volume] in [facility] Lymphocytes 1.0 K/UL 1.5-3.5 Below low normal [facility] - [#/volume] in [facility] Monocytes 0.5 K/UL 0.0-1.0 [facility] - [#/volume] in [facility] Eosinophils 0.0 K/UL 0.0-0.7 [facility] - [#/volume] in [facility] Basophils 0.0 K/UL 0.0-0.1 [facility] - [#/volume] in [facility] Differential [facility] - cell count [facility] method [facility] Immature 0 % 0.0-2.0 [facility] - granulocytes/100 [facility] leukocytes in [facility] Automated count ID Date Data Source [id number] 03/27/2019 12:22:01 AM EST [facility] Problem: Pressure Injury - Risk ofGoal: *Prevention of pressure injuryDescriptionDocument Butch Scale a nd appropriate interventions in the flowsheet.Outcome: Progressing Towards G oalNote: Pressure Injury Interventions:Sensory Interventions: Ass ess changes in LOCMoisture Interventions: Internal/External urinary devicesActivit y Interventions: PT/OT evaluationMobility Interventions: Pressure redistribution b ed/mattress (bed type)Nutrition Interventions: Document food/fluid/suppl ement intakeFriction and Shear Interventions: Minimize layersProblem: Patient Educatio n: Go to Patient Education ActivityGoal: Patient/Family EducationOutcome: Progres sing Towards GoalProblem: Falls - Risk ofGoal: *Absence of FallsDescriptionDocu ment Samra Fall Risk and appropriate interventions in the flowsheet.Outcome: Progressing Towards GoalNote: Fall Risk Interventions:Mentation Interventions: A dequate sleep, hydration, pain controlElimination Interventions: Bed/ch air exit alarmProblem: Patient Education: Go to Patient Education ActivityGoal: Patie nt/Family EducationOutcome: Progressing Towards GoalProblem: PainGoal: *Control of PainOutcome: Progressing Towards GoalProblem: Breathing Pattern - Ineffec tiveGoal: *Absence of hypoxiaOutcome: Progressing Towards GoalGoal: *Use of ef fective breathing techniquesOutcome: Progressing Towards GoalGoal: *PALLIATIV E CARE: Alleviation of DyspneaOutcome: Progressing Towards GoalProblem: Patient Education: Go to Patient Education ActivityGoal: Patient/Family EducationOu tcome: Progressing Towards GoalProblem: Seizure Disorder (Adult)Goal: *STG: Lindsey ins free of seizure activityOutcome: Progressing Towards GoalProblem: Patient Education: Go to Patient Education ActivityGoal: Patient/Family EducationOu tcome: Progressing Towards Goal Name Value Range Interpretation Code Description Data Harriett rce(s) Supporting Document(s ) ID Date Data Source [id number] 03/26/2019 07:34:03 PM EST [facility] ID Progress Note03/26/2019Subjective:Dulce ke non verbal,off BiPAP,unable to provide historyWbc trending downCultures pending .AfebrileObjective:Review of SystemsUnable to provide.Vitals:Patient Vitals for the me st 24 hrs: BP Temp Pulse Resp MhR52803/26/19 1109 130/81 97 F (36.1 C) 75 20 92 % 0838 - - - - 98 %03/26/19 0828 168/84 96.9 F (36.1 C) 68 20 98 %03/26/19 061 0 - - - - 98 %03/26/19 0427 159/82 97.4 F (36.3 C) 68 21 99 %03/26/19 0122 - - - - 96 %03/26/19 0008 143/72 97.9 F (36.6 C) 60 20 96 %03/25/19 2250 - - - - 98 %03/15 05/03 1959 123/78 97.7 F (36.5 C) 82 18 91 %03/25/19 1640 - - - - 97 %03/25/19 1542 (!) 114/94 97.5 F (36.4 C) 73 18 -Tmax: Temp (24hrs), Av.4 F (36.3 C), Min :96.9 F (36.1 C), Max:97.9 F(36.6 C)Physical Exam:General: Awake, nonverb al cooperative, no distress, appears stated age.Eyes: Conjunctivae/corneas clear. P ERRLNeck: Supple, symmetrical, trachea midline, no adenopathyLungs: Bilateral breath sounds with basal crackles..Heart: Regular rate and rhythm, S1, S2 normal, no murmurAbdomen: Soft, non-tender. Bowel sounds normal. No masses, Noorganomegal y.peg+Back: No CVA tenderness.Extremities: Chronic lymphedema, no cyanosisPulses: 2 + and symmetric all extremities.Skin: Skin color, texture, turgor normal. No rashes or lesionsCurrent Facility-Administered MedicationsMedication Dose Route Frequen cy dextrose 5% and 0.9% NaCl infusion 50 mL/hr IntraVENous CONTINUOUS sodium chl oride (NS) flush 5-10 mL 5-10 mL IntraVENous PRN acetaminophen (TYLENOL) solution 65 0 mg 650 mg Per G Tube Q4H PRN cinacalcet (SENSIPAR) tablet 60 mg 60 mg Oral KYLEIGH Y heparin (porcine) injection 5,000 Units 5,000 Units SubCUTAneous Q12H lamoTRIgi ne (LaMICtal) tablet 50 mg 50 mg Per G Tube BID valproic acid (as sodium salt) (DEP AKENE) 250 mg/5 mL (5 mL) oral solution 750mg 750 mg Per G Tube Q12H methylPREDNISol one (PF) (SOLU-MEDROL) injection 40 mg 40 mg IntraVENous Q6H multivit-folic acid-her bal 275 (WELLESSE PLUS) oral liquid 30 mL 30 mL Per GTube DAILY ALPRAZolam (XANAX) t ablet 0.25 mg 0.25 mg Per G Tube QPM cefepime (MAXIPIME) 1 g in 0.9% sodium c hloride (MBP/ADV) 50 mL MBP 1 gIntraVENous Q8H acetylcysteine (MUCOMYST) 100 mg/mL (10 %) nebulizer solution 400 mg 4 mLInhalation Q6H RT albuterol-ipratropi um (DUO-NEB) 2.5 MG-0.5 MG/3 ML 3 mL Nebulization Q6H RT vancomycin (VANCOCI N) 1,000 mg in 0.9% sodium chloride 250 mL IVPB 1,000 mgIntraVENous Q12H budesoni de (PULMICORT) 500 mcg/2 ml nebulizer suspension 500 mcg NebulizationBID RTLa bs:Recent Labs 03/25/1903WBC 14.2* 18.8*HGB 10.7* 13.5*PLT 270 365BUN 12 11CREA 0.32* 0.48*SGOT -- 11*AP -- 83TBILI -- 0.3Cultures:Lab ResultsComp onent Value Date/Time Culture result: NO GROWTH 1 DAY 03/25/2019 03:10 AM Culture result: NO GROWTH 1 DAY 03/25/2019 02:55 AM Culture result: NO GROWTH 5 DAYS 019 04:14 AM Culture result: NO GROWTH 5 DAYS 03/11/2019 04:14 AMRadiology:No results found.Assessment: Recurrent aspiration pneumonia. Acute COPD exacerbation Acu te hypercapnic respiratory failure. Dysphagia s/p peg placement.. Atelectas is R/o sepsis. Plan:1. Continue IV cefepime and vancomycin2. Follow cultures.Pat Beauchamp 20182:14 PM Name Value Range Interpretation Code Description Data Harriett rce(s) Supporting Document(s ) ID Date Data Source [id number] 03/26/2019 04:35:03 PM [facility] Progress NotePatient: Evelio Carlin Sex: male DOA: 03/25/2019Date of : 1950 Age: 68 y.o. :[id number]:Reyes Carlin is 68 y.o. male who is awake and alert, wearing VM, off BIPAPsince this m orning. His O2 SAT ranging from 91-92 %. He is however,noncomplaint with the mask, p ulling mask off at times. He has medical history of Dysphagia, recurrent aspirati on pneumonia, s/p g/tconversion to jtube on 02/16/19, hyperlipidemia,hyperparathyroid ,unspecified,seizure, large hiatal hernia, anxiety disorder, personal history ofpul monary embolus,COPD, GERD, Schizophrenia unspecified, Kyphosis, Parkinsondisease , Severe intellectual disabilities.and Generalized muscle weakness.As per [facility] record, the patient was transferred to the EDfor Hypoxia, he was found with O2 SAT 77 % on O2 NC 4 LPM and tachypneic. Hewas later placed on NRBM. Patient has a clogged jtube and the long-term hasbeen using the gtube site for fe edings and administration of medications.Pt was seen at [facility] by Dr Motley, gi and jocelyn ns were for jtube placement, that wasscheduled for today.The patient is no nverbal and unable to participate with his history.Patient was admitted with encoun ter diag of Acute Hypercapneic and Hypoxemicrespiratory failure and aspirat ion pneumonia. 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 WearingVMHead: Normocephalic, without obvious abnormality, atraumatic.Eyes: Conjunctivae clear, anicteric sclerae. Pupils are equalNeck: Supple, symmetrical, no adenopathy, no carotid bruit and no JVD.Lungs: Bilateral air entry. Decreased breath sounds RML. No Wheezing orRhonch i. No rales.Chest wall: No Accessory muscle use.Heart: Regular rate and rhythm, n o murmur, or rubAbdomen: Positive g/t in place, soft, non- tender, Not distended. Bowelsounds normal. No massesExtremities: Lower Limbs contractures. No cyanosis. No edema. No clubbingSkin: Warm and dry. No rashes or lesions. Not JaundicedLym ph nodes: Cervical, supraclavicular normal.Psych: Not agitated.Neurologic: EOMs intact. No facial asymmetry. No aphasia or slurred speech.Generalized muscle wea kness. NonverbalIntake and Output:Current Shift: 03/26 701 - 03/26 1900In: 200 [ I.V.:200]Out: -Last three shifts: 03/24 1901 - 03/26 07In: 3140 [I.V.:3140]Out: -La b/Data Reviewed:Recent Days:Recent Labs 03/25/1903WBC 14.2* 18.8* HGB 10.7* 13.5*HCT 33.6* 42.0PLT 270 365Recent Labs 03/26/1908 4 03/25/1903NA -- 143 -- 135*K -- 4.2 -- 3.5CL -- 111* -- 93*CO2 31* 28 37* 39*GLU -- 105 -- 95BUN -- 12 -- 11CREA -- 0.32* -- 0.48 *CA -- 8.0* -- 9.6MG -- 1.8 -- --PHOS -- 2.3* -- --ALB -- 1.9* -- 2.9*TBILI -- -- -- 0.3SGOT -- -- -- 11*ALT -- -- -- 15Recent Lab s 1 0PH 7.40 7.43PCO2 48 53*PO2 49* 86HCO3 30* 35*FIO2 28.0 10 0.0Ct Chest Wo ContResult Date: 03/14/2019History: Respiratory difficult y. FINDINGS: CT scanning of the chest wasperformed helically from lung apices to the upper abdomen without intravenouscontrast dural. Sagittal and coronal reconstructed images are submitted.Scanning was performed utilizi ng dose lowering techniques and is compared to theprior study of 01/15/2019. Evaluati on of thoracic vascular structures is limitedwithout intravenous contrast mate rial. There is, however, no definite CTevidence of dissection or focal aneury smal dilatation. Some peripheralcalcification is noted. There is no evidence of any pa thologically enlargedlymph node within the visualized portions of the mediastinum o r axillae. Somenonpathologically enlarged lymph nodes are seen. Again noted is angel vation of theleft hemidiaphragm. A left small pleural effusion is noted as well asatel ectatic change at the left lung base. Patchy opacity at the right lung baseis compati ble with a right basilar infiltrate. There is some patchy opacitywithin the right midd le lobe as well. The right basal infiltrate is greater insize than that seen previou sly. The pleural effusion is smaller. The rightmiddle lobe infiltrate is similar. Limited evaluation of upper abdominalstructures reveals a tube withi n the stomach directed toward the duodenum.Diffuse hypertrophic degenerati ve changes are noted of the thoracic spine. Thereis again noted to be shift of media stinal structures to the right.IMPRESSION: Worsening right lower lobe infiltrate. S light worsening of the rightmiddle lobe infiltrate. Improved left lung.Xr Chest PortResult Date: 03/25/2019CHEST one view HISTORY: Fever. Reflux. Gastrostomy. COM PARISON: 03/11/2019.There is a poor inspiratory effort which compromises thi s interpretation. Arepeat study is suggested. There is discoid atelectasis and/or lef t lower lobeinfiltrate.There is no gross evidence of congestion, other infiltrate s,effusions or pneumothorax.IMPRESSION: Possible left lower lobe infiltrate. Poo r inspiratory effort.Xr Chest PortResult Date: 03/11/2019CHEST one view HISTORY: Fever. COPD. Reflux. COMPARISON: 02/12/2019. Anadditional view was obtained. A tubula r structure overlies the stomach andmidabdomen with some gastric distenti on and elevation of the left hemidiaphragm.There is a poor inspirator y effort which compromises this interpretation. Arepeat study is suggest ed. .There is no gross evidence of congestion,infiltrates, effusions or pne umothorax. Old rib fractures are noted.IMPRESSION: No evidence of acute c ardiopulmonary disease. Poor inspiratoryeffort. Gastric distention.Me dications reviewedCurrent Facility-Administered MedicationsMedicat ion Dose Route Frequency dextrose 5% and 0.9% NaCl infusion 50 mL/hr IntraVENous CONTINUOUS sodium chloride (NS) flush 5-10 mL 5-10 mL IntraVENous PRN acetaminoph en (TYLENOL) solution 650 mg 650 mg Per G Tube Q4H PRN cinacalcet (SENSIPAR) tabl et 60 mg 60 mg Oral DAILY heparin (porcine) injection 5,000 Units 5,000 Units SubCU TAneous Q12H lamoTRIgine (LaMICtal) tablet 50 mg 50 mg Per G Tube BID valproic ac id (as sodium salt) (DEPAKENE) 250 mg/5 mL (5 mL) oral solution 750mg 750 mg Per G Tu be Q12H methylPREDNISolone (PF) (SOLU-MEDROL) injection 40 mg 40 mg Int raVENous Q6H multivit-folic acid-herbal 275 (WELLESSE PLUS) oral liquid 30 mL 30 mL Per GTube DAILY ALPRAZolam (XANAX) tablet 0.25 mg 0.25 mg Per G Tube QPM cefepim e (MAXIPIME) 1 g in 0.9% sodium chloride (MBP/ADV) 50 mL MBP 1 gIntraVENous Q8H acetylcysteine (MUCOMYST) 100 mg/mL (10 %) nebulizer solution 400 mg 4 mLInhalatio n Q6H RT albuterol-ipratropium (DUO- NEB) 2.5 MG-0.5 MG/3 ML 3 mL Nebulization Q6H RT vancomycin (VANCOCIN) 1,000 mg in 0.9% sodium chloride 250 mL IVPB 1,000 mgInt raVENous Q12H budesonide (PULMICORT) 500 mcg/2 ml nebulizer suspension 500 mcg N ebulizationBID RTAssessment/Plan:Hospital Problems Date Reviewed: 03/26/2019 Codes Class Noted POA Acute hypoxemic respiratory failure (HCC) ICD-10-CM: J96 .01ICD-9-CM: 518.81 03/25/2019 UnknownAssessment:Acute Hypercapneic, Hy poxemic Respiratory FailureAspiration PneumoniaCOPDLeukocytosis- trending down wardMalfunctioning jtubeDysphagia ( s/p gtube conversion to jtube)Anxiety DisorderHype rparathyroid Unspecified typeMentally challengedSeizure disorderHyponatremia- stableHypophosphatePlan:Continue IV cefepime and vancomycin per IDVM, PRN BIPAP per p ulmonaryJtube placement over Gtube per GIIv steroidsnebulizersFollow up culturesIV f luidsMonitor Teofilo Mora 2018Time: 4:06 PM Name Value Range Interpretation Code Description Data Harriett rce(s) Supporting Document(s ) ID Date Data Source [id number] 03/26/2019 03:24:43 PM EST [facility] Esophago- Gastroduodenoscopy (EGD) Dea Carlin5/10/[id number]: Endo scopic Gastroduodenoscopy with positioning of jenunal feedingtube and endoclipping.Ind ication: dysphagia and aspiration from stomach.Pre-operative Diagnosis: see ind ication abovePost-operative Diagnosis: see findings belowOperator: Mathieu Olea Provider: Mili Hills DOAnesthesia/Sedation: MAC anesthesia P ropofolProcedure DetailsAfter infomed consent was obtained for the procedure, with all risks andbenefits of procedure explained the patient was taken to the endoscopy suite andplaced in the left lateral decubitus position. Following sequentialadministr ation of sedation as per above, the endoscope was inserted into themouth and advanced under direct vision to mid-jejunum. A careful inspection wasmade as the gastro scope was withdrawn, including a retroflexed view of theproximal stomach; findings an d interventions are described below.Findings:Esophagus:normalStomach: normalDuodenum/jejunum: normalTherapies: Removed jejunal PEJ over 24F PEG and pl aced new tube, endoclippingit to the proximal jejunum. Some of the tube coils in the stomach. Suspect itwont last long before becoming diplaced.Specimens: * No specim ens in log *EBL: NoneComplications: None; patient tolerated the procedure well.Imp lants: NoneImpression:-placement of PEJ over PEGRecommendations:-current configuratio n will work for now but strongly suggest pt have a secondsurgically placed J-tube fo r dedicated feeding as this current contraption hashigh failure rate. Famil y aware.Signed By: Diogo Collins MD 03/26/2019 3:20 PM Name Value Range Interpretation Code Description Data [facility] rce(s) Supporting Document(s ) ID Date Data Source [id number] 03/26/2019 02:25:33 PM EST [facility] TRANSFER - IN REPORT:Verbal report laureni nathaly from Jacquelyn on Evelio Carlin being received from T3for ordered procedureRep ort consisted of patient's Situation, Background, Assessment andRecommendation s(SBAR).Information from the following report(s) SBAR and MAR was reviewed with thereceiving nurse.Opportunity for questions and clarification was provided.Assessmen t to be completed upon patient's arrival to unit and care assumed. Name Value Range Interpretation Code Description Data Harriett rce(s) Supporting Document(s ) ID Date Data Source [id number] 03/26/2019 01:30:00 PM EST [facility] PULMONARY/ CCM- Consult NotePatient: Ivelisse Carlin Sex: male DOA: 03/25/2019Date of : [birth year] Age: 68 y.o. LOS: LOS: 1 dayHPI: step down.Evelio Carlin is a 68 y.o. 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 Authoriz ing Providerheparin sodium,porcine (HEPARIN, PORCINE,) 5,000 unit/mL injection 1 mL b ySubCUTAneous route every twelve (12) hours every twelve (12) hours. 03/17/19Mili Hills DOmultivitamin (MULTI-DELYN, WELLESSE) liqd 5 mL by Per G Tube route daily.03/17/19 Mili Hills DOacetaminophen (TYLENOL) 32MG/ML soln s olution Take 20.3 mL by mouth every four(4) hours as needed for Pain or Fever. Mili Hills DOvalproic acid, as sodium salt, (DEPAKENE) 250 mg/5 mL (5 m L) soln oral [id number] mg by Per G Tube route every twelve (12) hours. Provid er, Historicalacetylcysteine (MUCOMYST) 100 mg/mL (10 %) nebulizer solution Take 4 m L byinhalation two (2) times a day. Provider, Historicalclorazepate (TRANXEN E) 3.75 mg tablet 1 Tab by Per G Tube route nightly. MaxDaily Amount: 3.75 mg. Mili Hills DOcinacalcet (SENSIPAR) 30 mg tablet Take 2 Tabs by mouth daily. Patient taking differently: 30 mg daily. Via G tube 12/30/18 Mili Hills DOlamoT RIgine (LAMICTAL) 25 mg tablet 2 Tabs by Per G Tube route two (2) times aday. 12/30/18 Mili Hills DOalbuterol-ipratropium (DUO-NEB) 2.5 mg-0.5 mg/3 ml nebu 3 mL b y Nebulizationroute every six (6) hours. Every 6 hours while awakePatient taking differently: 3 mL by Nebulization route every four (4) hours asneeded. Every 6 hours w hile awake 12/30/18 Mili Hills DObudesonide (PULMICORT) 0.5 mg/2 mL nbs p 2 mL by Nebulization route two (2) timesa day. 12/30/18 Mili Hills DONo Kno wn AllergiesPast Surgical History:Procedure Laterality Date HX GASTROSTOMY PEG- rep laced 11/2018History reviewed. 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 Use Smoking status: Never Smoker Smokeless tobacco: Never UsedSubstance a nd Sexual Activity Alcohol use: No Drug use: NoReview of SystemsPertinent items are noted in the History of Present Illness.Physical Exam:Current medication s:Current Facility-Administered Medications: dextrose 5% and 0.9% NaCl infusion, 50 mL/hr, IntraVENous, CONTINUOUS,Oralia Frankel MD, Last Rate: 50 mL/hr at 03/26/19 1200 , 50 mL/hr at 200 sodium chloride (NS) flush 5-10 mL, 5-10 mL, IntraVENous , PRN, Jessie Neumann MD acetaminophen (TYLENOL) solution 650 mg, 650 mg, Per G Tube, Q4H PRN, Mili Hills DO cinacalcet (SENSIPAR) tablet 60 mg, 60 mg, Oral, DAILY, Mili Hills DO,Stopped at 03/26/19 0900 heparin (p orcine) injection 5,000 Units, 5,000 Units, SubCUTAneous, Q12H,Mili Hills DO, Stopped at 03/25/19 1925 lamoTRIgine (LaMICtal) tablet 50 mg, 50 mg, Per G Tu be, BID, Mili Hills DO, Stopped at 03/25/19 2100 valproic acid (as sodium salt) (DEPAKENE) 250 mg/5 mL (5 mL) oral bovdsaop090 mg, 750 mg, Per G Tube, Q12H , Mili Hills DO, Stopped at 03/25/19 2100 methylPREDNISolone (PF) (SOLU-MED ROL) injection 40 mg, 40 mg, IntraVENous,Q6H, Mili Hills DO, 40 mg at 03/26/19 1 255 multivit-folic acid-herbal 275 (WELLESSE PLUS) oral liquid 30 mL, 30 mL , PerG Tube, DAILY, Mili Hills DO, Stopped at 03/26/19 0900 ALPRAZolam (X ANAX) tablet 0.25 mg, 0.25 mg, Per G Tube, QPM, Mili Hills DO cefepime (MAXI PIME) 1 g in 0.9% sodium chloride (MBP/ADV) 50 mL MBP, 1 g,IntraVENous, Q8H, Mili Hills DO, Last Rate: 100 mL/hr at 03/26/19 0600, 1g at 03/26/19 0600 joan tylcysteine (MUCOMYST) 100 mg/mL (10 %) nebulizer solution 400 mg, 4 mL,Inhalati on, Q6H RT, Mili Hills DO, 400 mg at 03/26/19 0832 albuterol-ipratropium (D UO-NEB) 2.5 MG-0.5 MG/3 ML, 3 mL, Nebulization, Q6HRT, Mili Hills DO , 3 mL at 03/26/19 0832 vancomycin (VANCOCIN) 1,000 mg in 0.9% sodium chlor wade 250 mL IVPB, 1,000 mg,IntraVENous, Q12H, Natasha Dudley MD, Last Rate: 125 mL/hr a t 03/26/19 0916,1,000 mg at 03/26/19 0916 budesonide (PULMICORT) 500 mcg/2 ml nebu lizer suspension, 500 mcg,Nebulization, BID RT, Pablo Flores MD, 500 mcg at 2133DataVisit VitalsBP 130/81 (BP 1 Location: Left arm, BP Patient Position: At rest)Pulse 75Temp 97 F (36.1 C)Resp 20Wt 54.4 kg (120 lb)SpO2 92%BMI 21.95 k g/m Intake and Output:Date 03/25/19699 - 03/26/1965803/26/19 0700 - 03/27/19 0 659Shift 2034-0711 7267-5857 24 Hour Total 5668-1970 5314-6271 24 Hour TotalINTAKEI .V.(mL/kg/hr) 1140(1.7) 1140(0.9) Volume (0.9% sodium chloride infusion) 840 840 Volume (cefepime (MAXIPIME) 1 g in 0.9% sodium chloride (MBP/ADV) 50 mL MBP)50 5 0 Volume (vancomycin (VANCOCIN) 1,000 mg in 0.9% sodium chloride 250 mL IVPB)250 250 Shift Total(mL/kg) 1140(20.9) 1140(20.9)OUTPUTShift Total(mL/kg)NET 1 140 1140Weight (kg) 54.4 54.4 54.4 54.4 54.4 54.4Pulse OX:SpO2 Readings from Last 6 E ncounters:03/26/19 92%03/17/19 92%02/19/19 96%02/18/19 92%01/24/19 93%12/30/18 96%@ LASTSAO2(6)@PHYSICAL EXAM:General: Lethargic,responding.Head: Normocephal ic, without obvious abnormality, atraumatic.Eyes: Conjunctivae clear, a nicteric sclerae. Pupils are equalNose: Nares normal. No drainage or sinus tende rness.Throat: Lips, mucosa, and tongue normal. No ThrushNeck: Supple, symmetr ical, no adenopathy, thyroid: non tender no carotid bruit and no JVD.Back: Symmet rodger, No CVA tenderness.Lungs: Scattered rhonchi,Chest wall: No tenderness or de formity. No Accessory muscle use.Heart: Regular rate and rhythm, no murmur, rub or gallop.Abdomen: Soft, non-tender. Not distended. Bowel sounds normal. No mass esExtremities: Extremities normal, atraumatic, No cyanosis. No edema. No c lubbingSkin: Texture, turgor normal. No rashes or lesions. Not JaundicedLymph n odes: Cervical, supraclavicular normal.Psych: Good insight. Not depressed. Not anxi ous or agitated.Neurologic: EOMs intact. No facial asymmetry. No aphasia or slurred speech.Most recent labs:Recent Labs 03/25/1903WBC 14.2* 18.8* HGB 10.7* 13.5*HCT 33.6* 42.0PLT 270 365Recent Labs 03/26/1908 4 03/25/1903NA -- 143 -- 135*K -- 4.2 -- 3.5CL -- 111* -- 93*CO2 31* 28 37* 39*GLU -- 105 -- 95BUN -- 12 -- 11CREA -- 0.32* -- 0.48 *CA -- 8.0* -- 9.6MG -- 1.8 -- --PHOS -- 2.3* -- --ALB -- 1.9* -- 2.9*TBILI -- -- -- 0.3SGOT -- -- -- 11*ALT -- -- -- 15Recent Lab s 03/25/1904PH 7.40 7.43PCO2 48 53*PO2 49* 86HCO3 30* 35*FIO2 28.0 10 0.0ABG:Recent Labs 03/25/1904PH 7.40 7.43PCO2 48 53*PO2 4 9* 86HCO3 30* 35*FIO2 28.0 100.0Cultures:No results found for: SDESLab ResultsCompon ent Value Date/Time Culture result: NO GROWTH 1 DAY 03/25/2019 03:10 AM Culture result : NO GROWTH 1 DAY 03/25/2019 02:55 AM Culture result: NO GROWTH 5 DAYS 03/11/2019 04:1 4 AM Culture result: NO GROWTH 5 DAYS 03/11/2019 04:14 AM Culture result: NO G ROWTH 5 DAYS 02/08/2019 05:19 PM Culture result: NO GROWTH 5 DAYS 02/08/2019 05:0 0 PM Culture result: NO GROWTH 5 DAYS 01/21/2019 11:30 PM Culture result: NO G ROWTH 2 DAYS 01/21/2019 11:15 PM Culture result: NO GROWTH 5 DAYS 01/21/2019 11:0 0 PM Culture result: NO GROWTH 1 DAY 01/10/2019 08:58 AM Culture result: NO G ROWTH 5 DAYS 01/10/2019 07:55 AM Culture result: NO GROWTH 5 DAYS 01/10/2019 07:4 0 AM Culture result: NO GROWTH 5 DAYS 12/29/2018 11:23 AM Culture result: NO G ROWTH 5 DAYS 12/29/2018 11:00 AM Culture result: 10,000 to 50,000 COLONIES/mL KLE BSIELLA PNEUMONIAE (A)12/29/2018 11:00 AM Culture result: 50,000-100,000 COLONIES/ mL PSEUDOMONAS AERUGINOSA (A)12/29/2018 11:00 AM Culture result: (A) 12/29/2018 11:00 AM 10,000 to 50,000 COLONIES/mL STAPHYLOCOCCUS EPIDERMIDIS Culture resul t: NO GROWTH 2 DAYS 12/24/2018 09:45 AM Culture result: NO GROWTH 5 DAYS 019 12:00 PM Culture result: NO GROWTH 5 DAYS 12/23/2018 11:40 AM Culture result: NO G ROWTH 4 DAYS 12/19/2018 12:30 PM Culture result: NO GROWTH 4 DAYS 12/19/2018 12:3 0 PM Culture result: NO GROWTH 1 DAY 12/12/2018 08:04 PM Culture result: NO G ROWTH 5 DAYS 12/12/2018 07:40 PM Culture result: NO GROWTH 5 DAYS 12/12/2018 07:4 0 PM Culture result: NO GROWTH 2 DAYS 11/20/2018 09:00 AM Culture result: NO G ROWTH 5 DAYS 11/07/2018 08:10 PM Culture result: NO GROWTH 5 DAYS 11/07/2018 08:0 0 PMImages:Cta Chest W Or W Wo ContResult Date: 11/08/2018Examination: CTA Chest ? PE angiography History: Hypoxia; rule out pneumoniaversus pulmonary embolism Prior s: None Technique: Low-dose, multiplanar,helical CTA chest was perfor med with bolus IV injection from lung apices tobases. 3D-reformatted images were obt ained and reviewed on a dedicated viewingworkstation and directly supervis ed. Contrast: A total of 71 mL of Isovue-370was administered intravenously for this procedure. Findings: No evidence ofpulmonary embolism is seen. There is d ecreased size of the right hemithorax fromchronic scarring and retraction with mediastinal shift left to right.Additional area of consolidation is seen in the rig ht lower lobe and suggestssuperimposed pneumonia with subsegmental atelectasis. Subsegmental atelectasisis also noted in the left lung base, with pleural parench ymal scarring. Lowlung volumes are seen. No pneumothorax seen. Aorta normal in calib er withoutaneurysm or dissection. Mediastinum no adenopathy. Mediastinal shift is see n inthe left and right as a result of chronic changes in the right hemithorax. Heart shows no chamber enlargement or pericardial effusion. No acute fractures seen in the bony thorax, sternum, manubrium and rib cage. Multiple compressiondefor mities are seen in the mid and lower thoracic spine, with superimposedspondyloarthropa thy. Cannot exclude acute fracture.Impression: No evidence of pul monary embolism Right lower lobe pneumoniasuggested. Incidental scarring and retraction in the right hemithorax fromremote/chronic inflammatory disease and/or trauma. Bibasilar subsegmentalatelectasis. Report Electron ically Signed By: Pawel Zafar M.D. -11/08/2018 12:40 AMXr Chest PortResult D ate: 11/07/2018XR CHEST PORT CLINICAL INDICATION PROVIDED:. "sob." COMPARISON: . 09/26/2015.FINDINGS:. The pericardial/cardiac silhouette is enlarg ed in the transversedimension. There is no pulmonary vascular congestion or interst itial edema.Linear density in the left lung base and faint densities in the right mi d tolower lung likely represent atelectasis. There is no lobar consolidation oreffusi on. There is no pneumothorax.IMPRESSION:. Bilateral lower lung atelectasis. No donna dence of consolidation oreffusion.Assessment/PlanActive Problem s: Acute hypoxemic respiratory failure (HCC) (03/25/2019) Acute resp failure combined pneumonia recurrent acute copd exacerbationPLAN,Monitoring,bipap prn fo r resp distress,abx as per id.Steroid nebbipap prn and at night.Gi/renal follo w up noted.NebGi /dvt prophylaxis.D/w nursing staff.Pat Munson 2018 The billing code submitted in association with this evaluation also includes theti me to review patient's prior records, communicate with the physician team,obta in corroborating data, and discuss the risk and benefits of the proposedmanagement p frantz with the patient and their family >30 minutes. Name Value Range Interpretation Code Description Data Harriett rce(s) Supporting Document(s ) ID Date Data Source [id number] 03/26/2019 11:24:43 AM [facility] Progress NoteLuis Albertouel [id number] y.o.Adm it Date: 03/25/2019Active Problems: Acute hypoxemic respiratory failure (HCC) (02/2019)Subjective:Patient is less lthargic, non verbalPertinent items are noted in t he History of Present Illness.Objective:Visit VitalsBP 130/81 (BP 1 Location: Left arm , BP Patient Position: At rest)Pulse 75Temp 97 F (36.1 C)Resp 20Wt 54.4 kg (120 lb )SpO2 92%BMI 21.95 kg/m Intake and Output:Date 03/25/19 0700 - 03/26/19 065 9 03/26/19 0700 - 03/27/19 0659Shift 7250-2066 9172-2473 24 Hour Total 0700-1 859 4781-2751 24 Hour TotalINTAKEI.V.(mL/kg/hr) 1140(1.7) 114 0(0.9) Volume (0.9% sodium chloride infusion) 840 840 Volume (cefepime (MA XIPIME) 1 g in 0.9% sodium chloride (MBP/ADV) 50 mL MBP)50 50 Volume (vancomycin (VAN COCIN) 1,000 mg in 0.9% sodium chloride 250 mL IVPB)250 250Shift Total(mL/kg) 1140( 20.9) 1140(20.9)OUTPUTShift Total(mL/kg)NET 1140 1140Weight (kg) 54.4 54.4 54.4 54.4 54.4 54.4Medications Reviewed:Current Facility-Administered MedicationsMedicat ion Dose Route Frequency Provider Last Rate Last Dose sodium chloride (NS) flush 5- 10 mL 5-10 mL IntraVENous PRN Jessie Neumann MD acetaminophen (TYLENOL) solution 650 mg 650 mg Per G Tube Q4H PRN Reinier,Mili, DO cinacalcet ( SENSIPAR) tablet 60 mg 60 mg Oral DAILY Mili Hills, DOStopped at 03/26/19 0 900 heparin (porcine) injection 5,000 Units 5,000 Units SubCUTAneous Q12H Patricio Hills DO Stopped at 03/25/19 1925 lamoTRIgine (LaMICtal) tablet 50 mg 50 mg Per G Tube BID Mili Hills, DOStopped at 03/25/19 2100 valproic acid (as sodi um salt) (DEPAKENE) 250 mg/5 mL (5 mL) oral solution 750mg 750 mg Per G Tube Q12H N Mili buchanan DO Stopped at 03/25/19 2100 methylPREDNISolone (PF) (SOLU-MEDROL) i njection 40 mg 40 mg IntraVENous [id number] buchanan DO 40 mg at 03/26/19 0502 0. 9% sodium chloride infusion 70 mL/hr IntraVENous CONTINUOUS Mili Hills D O 70 mL/hr at 03/26/19 0255 70 mL/hr at 03/26/19 0255 multivit-folic acid-herba l 275 (WELLESSE PLUS) oral liquid 30 mL 30 mL Per GTube DAILY Mili Hills DO Stopped at 03/26/19 0900 ALPRAZolam (XANAX) tablet 0.25 mg 0.25 mg Per G Tube QPM N Mili buchanan DO cefepime (MAXIPIME) 1 g in 0.9% sodium chloride (MBP/ADV) 50 mL MBP 1 gIntraVENous Q8H Mili Hills DO 100 mL/hr at 03/26/19 0600 1 g at 211221 acetylcysteine (MUCOMYST) 100 mg/mL (10 %) nebulizer solution 400 mg 4 mLIn halation Q6H RT Mili Hills DO 400 mg at 03/26/19 0832 albuterol-ipratropium (DUO-NEB) 2.5 MG-0.5 MG/3 ML 3 mL Nebulization Q6H RTMili Hills DO 3 mL at 03/26/19 0832 vancomycin (VANCOCIN) 1,000 mg in 0.9% sodium chloride 250 mL IVPB 1,000 mgIntraVENous Q12H Natasha Dudley MD 125 mL/hr at 03/26/19 0916 1,000 mg a t105/27/18 0916 budesonide (PULMICORT) 500 mcg/2 ml nebulizer suspension 500 mcg N ebulizationBID RT Pablo Flores MD 500 mcg at 03/25/19 2133Physical Exam:Physical E xam:General: Alert, cooperative, no distress, appears stated age.Eyes: Conj unctivae/corneas clear.Neck: Supple, symmetrical, trachea midline, no adenopa thy, thyroid: noenlargement/tenderness/nodules, no car otid bruit and no JVD.Lungs: Clear to auscultation bilaterally.Heart: Regular rate and rhythm, S1, S2 normal, no murmur, click, rub or gallop.Abdomen: Soft, no n-tender. Bowel sounds normal. No masses, No organomegaly.Extremities: Extremities no rmal, atraumatic, no cyanosis or edema,Pulses: 2+ and symmetric all extre mities.Skin: Skin color, texture, turgor normal. No rashes or lesionsData Review: Recent Results (from the past 24 hour(s))OSMOLALITY, UR Collection Time: 03/26/19 7:10 AMResult Value Ref Range Osmolality,urine 773 300 - 1,000 MOSM/kg [id number], UR, RANDOM Collection Time: 03/26/19 7:10 AMResult Value Ref Range Sodium,urine random 149 40 - 220 MMOL/LRENAL FUNCTION PANEL Collection Time: 03/26/19 8:14 AMResult Value Ref Range Sodium 143 136 - 145 mmol/L Potassium 4.2 3.5 - 5.1 mmol/L Chloride 111 (H) 98 - 107 mmol/L CO2 28 21 - 32 mmol/L Anion gap 8 (L) 10 - 2 0 mmol/L Glucose 105 74 - 106 mg/dL BUN 12 7 - 18 mg/dL Creatinine 0.32 (L) 0.70 - 1. 30 mg/dL GFR est AA >60 >60 ml/min/1.73m2 GFR est non-AA >60 >60 ml/min/1.73m2 Calcium 8.0 (L) 8.5 - 10.1 mg/dL Phosphorus 2.3 (L) 2.5 - 4.9 mg/dL Albumin 1.9 (L) 3.5 - 4. 7 g/dLCBC WITH AUTOMATED DIFF Collection Time: 03/26/19 8:14 AMResult Value Ref Range WBC 14.2 (H) 4.8 - 10.6 K/uL RBC 3.43 (L) 4.70 - 6.00 M/uL HGB 10.7 (L) 14.0 - 18.0 g/dL HCT 33.6 (L) 42.0 - 52.0 % MCV 98.0 (H) 81.0 - 94.0 FL MCH 31.2 27.0 - 35.0 PG MCHC 31.8 30.7 - 37.3 g/dL RDW 16.2 (H) 11.5 - 14.0 % PLATELET 270 130 - 400 K/uL MPV 9.6 9.2 - 11.8 FL NEUTROPHILS 96 (H) 48.0 - 72.0 % LYMPHOCYTES 3 (L) 18.0 - 40.0 % MONOCYTES 1 (L) 2.0 - 12.0 % EOSINOPHILS 0 0.0 - 7.0 % BASOPHILS 0 0. 0 - 3.0 % ABS. NEUTROPHILS 13.6 (H) 1.5 - 6.6 K/UL ABS. LYMPHOCYTES 0.5 (L) 1.5 - 3.5 K/UL ABS. MONOCYTES 0.1 0.0 - 1.0 K/UL ABS. EOSINOPHILS 0.0 0.0 - 0.7 K/UL ABS. BASO PHILS 0.0 0.0 - 0.1 K/UL DF AUTOMATED IMMATURE GRANULOCYTES 0 0.0 - 2.0 %MAGNE SIUM Collection Time: 03/26/19 8:14 AMResult Value Ref Range Magnesium 1.8 1.6 - 2.6 mg/dLLACTIC ACID Collection Time: 03/26/19 8:14 AMResult Value Ref Range Lactic aci d HEMOLYZED SPECIMEN 0.4 - 2.0 MMOL/LBLOOD GAS, ARTERIAL Collection Time: 03/26/19 9:51 AMResult Value Ref Range pH 7.40 7.35 - 7.45 PCO2 48 32 - 48 mmHg PO2 49 (LL) 83 - 108 mmHg CO2, TOTAL 31 (H) 19 - 24 mmol/L BICARBONATE 30 (H) 21 - 28 mmol/L O2 SAT 84 (L) 94 - 98 % BASE EXCESS 4.0 (H) 0 - 3 mmol/L SITE LEFT RADIAL MIRANDA'S TEST POS ITIVE DEVICE VENTURI MASK O2 FLOW 4 L/min FIO2 28.0 % Respiratory comment: CALLED TO AND READ BACK BY Performed by [id number] ACID Collection Time: 03/26/19 10:15 AMR esult Value Ref Range Lactic acid 1.5 0.4 - 2.0 MMOL/LImaging:No results found.Impre ssion:Active Hospital Problems Diagnosis Date Noted Acute hypoxemic respiratory failu re (HCC) 03/25/2019 Hyponatremia, correctedPlan:Continue IV antibioticsCha nge IV fluid to d5ns at 50 ml/hLabs in [facility] 2018 Name Value Range Interpretation Code Description Data Harriett rce(s) Supporting Document(s ) ID Date Data Source [id number] 03/26/2019 11:21:27 AM [facility] Consult NotePatient: Evelio Carlin Sex: male DOA: 03/25/2019Date of : 1950 Age: 68 y.o. LOS: LOS: 0 daysHPI:Evelio Carlin is a 68 y.o. 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)Past Surgical History:Procedure Laterality Date HX GA STROSTOMY PEG- replaced 11/2018History reviewed. No pertinent family history.So cial HistorySocioeconomic History Marital status: SINGLE Spouse name: Not on file Number of children: Not on file Years of education: Not on file Highest educatio n level: Not on fileTobacco Use Smoking status: Never Smoker Smokeless tobacco: Never UsedSubstance and Sexual Activity Alcohol use: No Drug use: NoOther Topic s ConcernPrior to Admission medicationsMedication Sig Start Date End Date Taking? Authorizing Providerheparin sodium,porcine (HEPARIN, PORCINE,) 5,000 unit/mL injection 1 mL bySubCUTAneous route every twelve (12) hours every twelve (12 ) hours. 03/17/19Mili Hills DOmultivitamin (MULTI-DELYN, WELLESSE) l iqd 5 mL by Per G Tube route daily.03/17/19 Mili Hills DOacetaminophen (TYLENO L) 32MG/ML soln solution Take 20.3 mL by mouth every four(4) hours as needed for Pain or Fever. 03/17/19 Mili Hills DOvalproic acid, as sodium salt, (DEPAKE NE) 250 mg/5 mL (5 mL) soln oral jbzinoay017 mg by Per G Tube route every twelve (12) hours. Provider, Edieacetylcysteine (MUCOMYST) 100 mg/mL (10 %) nebulizer so lution Take 4 mL byinhalation two (2) times a day. Provider, Edieclorazepate (TRANXENE) 3.75 mg tablet 1 Tab by Per G Tube route nightly. MaxDaily Amount: 3.75 mg. 12/30/18 Mili Hills DOcinacalcet (SENSIPAR) 30 mg tablet Take 2 Tabs by m outh daily.Patient taking differently: 30 mg daily. Via G tube 12/30/18 Maryann HillsDOlamoTRIgine (LAMICTAL) 25 mg tablet 2 Tabs by Per G Tube route two (2) times a day. 12/30/18 Mili Hills DOalbuterol-ipratropium (DUO-NEB) 2.5 mg -0.5 mg/3 ml nebu 3 mL by Nebulizationroute every six (6) hours. Every 6 hours while awakePatient taking differently: 3 mL by Nebulization route every four (4) hours asneeded. Every 6 hours while awake 12/30/18 Mili Hills DObudesonide (PULMICORT ) 0.5 mg/2 mL nbsp 2 mL by Nebulization route two (2) timesa day. 12/30/18 Maryam Hills DONo Known AllergiesCurrent Facility-Administered MedicationsMedicat ion Dose Route Frequency sodium chloride (NS) flush 5-10 mL 5-10 mL IntraVENous PRN albuterol-ipratropium (DUO-NEB) 2.5 MG-0.5 MG/3 ML 3 mL Nebulization Q4H RT vancomycin (VANCOCIN) 1,000 mg in 0.9% sodium chloride 250 mL IVPB 1,000 mgInt raVENous ONCE acetaminophen (TYLENOL) solution 650 mg 650 mg Per G Tube Q4H P RN acetylcysteine (MUCOMYST) 100 mg/mL (10 %) nebulizer solution 400 mg 4 mLInhala tion BID budesonide (PULMICORT) 500 mcg/2 ml nebulizer suspension 500 mcg Nebulizati onBID cinacalcet (SENSIPAR) tablet 60 mg 60 mg Oral DAILY heparin (porcine) injecti on 5,000 Units 5,000 Units SubCUTAneous Q12H lamoTRIgine (LaMICtal) tablet 50 mg 50 mg Per G Tube BID valproic acid (as sodium salt) (DEPAKENE) 250 mg/5 mL (5 mL) oral solution 750mg 750 mg Per G Tube Q12H methylPREDNISolone (PF) (SOLU-MEDROL) in jection 40 mg 40 mg IntraVENous Q6H 0.9% sodium chloride infusion 70 mL/hr Intra VENous CONTINUOUS multivit-folic acid-herbal 275 (WELLESSE PLUS) oral liquid 30 mL 3 0 mL Per GTube DAILY ALPRAZolam (XANAX) tablet 0.25 mg 0.25 mg Per G Tube QPM cefepime (MAXIPIME) 1 g in 0.9% sodium chloride (MBP/ADV) 50 mL MBP 1 gIntraVE Nous [id number] of Systems No n verba, all information taken from medical recordsGe n: No fever, chills, malaise.Heent: No headache, rhinorrhea, sinus pain, neck p ain/stiffness, sore throat.Heart: No cp, palps, pnd, o+orthopnea.Resp: No cough + shortness of breath.GI: No n/v/d/c. No melena or hematochezia.: No dysuria or hematuria.Derm: No rash, skin lesion or pruritis.Musc/skeletal: no bone or joint complains.Vasc: No edema, cyanosis or claudication.Endo: No heat/cold intolera nce, no polyuria,polydipsia or polyphagia.Neuro: lethargyHeme: No epist axis, hematemesis, melena, hematocheziaPhysical Exam:Visit VitalsBP 107/58Pulse 83Temp 99.5 F (37.5 C)Resp 18Wt 54.4 kg (120 lb)SpO2 99%BMI 21.95 k g/m Physical Exam: General: Alert, , mild distress, appears stated age. Head: Normocephalic, without obvious abnormality, atraumatic. Eyes : Conjunctivae/corneas clear Nose: Nares normal. No drainage or sin us tenderness Throat: Lips, mucosa, and tongue normal Neck: Sup ple, symmetrical, trachea midline, no adenopathy,thyroid: no enlargem ent/tenderness/nodules, no carotid bruit and no JVD. Lungs: Clear to auscu ltation bilaterally. Chest Wall: No tenderness or deformity. Heart : Regular rate and rhythm, S1, S2 normal, no murmur, click,rub or gallop. Ab domen: Soft, non-tender. Bowel sounds normal. No masses, No organomegaly. Ex tremities: Extremities normal, atraumatic, no cyanosis or edema. Neurologic: Bert btainable.Labs:Recent Results (from the past 24 hour(s))CULTURE, BLOOD Collection Patria e: 03/25/19 2:55 AMResult Value Ref Range Special Requests: NO SPECIAL REQUESTS Cu lture result: NO GROWTH AFTER 2 HOURSCULTURE, BLOOD Collection Time: 03/25/19 3:10 AM Result Value Ref Range Special Requests: NO SPECIAL REQUESTS Culture result: NO GROW TH AFTER 2 HOURSLACTIC ACID Collection Time: 03/25/19 3:10 AMResult Value Ref Range Lactic acid 2.0 0.4 - 2.0 MMOL/LCBC WITH AUTOMATED DIFF Collection Time: 03/25/19 3:10 AMResult Value Ref Range WBC 18.8 (H) 4.8 - 10.6 K/uL RBC 4.30 (L) 4.70 - 6.00 M/uL HGB 13.5 (L) 14.0 - 18.0 g/dL HCT 42.0 42.0 - 52.0 % MCV 97.7 (H) 81.0 - 94.0 F L MCH 31.4 27.0 - 35.0 PG MCHC 32.1 30.7 - 37.3 g/dL RDW 16.1 (H) 11.5 - 14.0 % JOCELYN TELET 365 130 - 400 K/uL MPV 9.5 9.2 - 11.8 FL NEUTROPHILS 80 (H) 48.0 - 72.0 % LYMP HOCYTES 13 (L) 18.0 - 40.0 % MONOCYTES 7 2.0 - 12.0 % EOSINOPHILS 0 0.0 - 7.0 % BASOP HILS 0 0.0 - 3.0 % ABS. NEUTROPHILS 15.0 (H) 1.5 - 6.6 K/UL ABS. LYMPHOCYTES 2.5 1.5 - 3.5 K/UL ABS. MONOCYTES 1.3 (H) 0.0 - 1.0 K/UL ABS. EOSINOPHILS 0.0 0.0 - 0.7 K/UL ABS. BASOPHILS 0.0 0.0 - 0.1 K/UL DF AUTOMATED IMMATURE GRANULOCYTES 0 0.0 - 2.0 %METABOLIC PANEL, COMPREHENSIVE Collection Time: 03/25/19 3:10 AMResult Value Ref Range Sodium 135 (L) 136 - 145 mmol/L Potassium 3.5 3.5 - 5.1 mmol/L Ch loride 93 (L) 98 - 107 mmol/L CO2 39 (H) 21 - 32 mmol/L Anion gap 6 (L) 10 - 20 mmol/L Glucose 95 74 - 106 mg/dL BUN 11 7 - 18 mg/dL Creatinine 0.48 (L) 0.70 - 1.30 mg /dL GFR est AA >60 >60 ml/min/1.73m2 GFR est non-AA >60 >60 ml/min/1.73m2 Calcium 9.6 8.5 - 10.1 mg/dL Bilirubin, total 0.3 0.2 - 1.0 mg/dL ALT (SGPT) 15 13 - 61 U/L AST (SGOT) 11 (L) 15 - 37 U/L Alk. phosphatase 83 45 - 117 U/L Protein, total 7.1 6.4 - 8. 2 g/dL Albumin 2.9 (L) 3.5 - 4.7 g/dL Globulin 4.2 1.7 - 4.7 g/dL A-G Ratio 0. 7 0.7 - 2.8BLOOD GAS, ARTERIAL Collection Time: 03/25/19 4:30 AMResult Value Ref Range pH 7.43 7.35 - 7.45 PCO2 53 (H) 32 - 48 mmHg PO2 86 83 - 108 mmHg CO2, TOTAL 37 (H) 19 - 24 mmol/L BICARBONATE 35 (H) 21 - 28 mmol/L O2 SAT 99 (H) 94 - 98 % BASE EXCE SS 9.1 (H) 0 - 3 mmol/L SITE RIGHT RADIAL MIRANDA'S TEST POSITIVE DEVICE BIPAP FIO2 100.0 % MODE BIPAP PEEP/CPAP 7 PRESSURE SUPPORT 14 RATE 15 Performed by [id number] NALYSIS W/ RFLX MICROSCOPIC Collection Time: 03/25/19 4:50 AMResult Value Ref Range Color YELLOW YEL Appearance CLEAR CLEAR Specific gravity 1.020 1.003 - 1.030 pH (UA) 8.5 (H) 4.6 - 8.0 Protein NEGATIVE NEG mg/dL Glucose NEGATIVE NEG mg/dL Ketone NEGATIVE NEG mg/dL Bilirubin NEGATIVE NEG Blood NEGATIVE NEG Urobilinogen 1.0 0.2 - 1.0 EU/dL Nitrites NEGATIVE NEG Leukocyte Esterase NEGATIVE NEGLACTIC ACID Collec tion Time: 03/25/19 7:10 AMResult Value Ref Range Lactic acid 1.9 0.4 - 2.0 MMOL/LRa diology:Ct Chest Wo ContResult Date: 03/14/2019History: Respiratory difficult y. FINDINGS: CT scanning of the chest wasperformed helically from lung apices to the upper abdomen without intravenouscontrast dural. Sagittal and coronal reconstructed images are submitted.Scanning was performed utilizi ng dose lowering techniques and is compared to theprior study of 01/15/2019. Evaluati on of thoracic vascular structures is limitedwithout intravenous contrast mate rial. There is, however, no definite CTevidence of dissection or focal aneury smal dilatation. Some peripheralcalcification is noted. There is no evidence of any pa thologically enlargedlymph node within the visualized portions of the mediastinum o r axillae. Somenonpathologically enlarged lymph nodes are seen. Again noted is angel vation of theleft hemidiaphragm. A left small pleural effusion is noted as well asatel ectatic change at the left lung base. Patchy opacity at the right lung baseis compati ble with a right basilar infiltrate. There is some patchy opacitywithin the right midd le lobe as well. The right basal infiltrate is greater insize than that seen previou sly. The pleural effusion is smaller. The rightmiddle lobe infiltrate is similar. Limited evaluation of upper abdominalstructures reveals a tube withi n the stomach directed toward the duodenum.Diffuse hypertrophic degenerati ve changes are noted of the thoracic spine. Thereis again noted to be shift of media stinal structures to the right.IMPRESSION: Worsening right lower lobe infiltrate. S light worsening of the rightmiddle lobe infiltrate. Improved left lung.Xr Chest PortResult Date: 03/25/2019CHEST one view HISTORY: Fever. Reflux. Gastrostomy. COM PARISON: 03/11/2019.There is a poor inspiratory effort which compromises thi s interpretation. Arepeat study is suggested. There is discoid atelectasis and/or lef t lower lobeinfiltrate.There is no gross evidence of congestion, other infiltrate s,effusions or pneumothorax.IMPRESSION: Possible left lower lobe infiltrate. Poo r inspiratory effort.Xr Chest PortResult Date: 03/11/2019CHEST one view HISTORY: Fever. COPD. Reflux. COMPARISON: 02/12/2019. Anadditional view was obtained. A tubula r structure overlies the stomach andmidabdomen with some gastric distenti on and elevation of the left hemidiaphragm.There is a poor inspirator y effort which compromises this interpretation. Arepeat study is suggest ed. .There is no gross evidence of congestion,infiltrates, effusions or pne umothorax. Old rib fractures are noted.IMPRESSION: No evidence of acute c ardiopulmonary disease. Poor inspiratoryeffort. Gastric distention.As sessmentActive Problems: Acute hypoxemic respiratory failure (HCC) (03/25/2019) hyponatremia RLL infiltratePlanLimited free waterNS , IV hydrationContinue present m edicationLabs in am. Name Value Range Interpretation Code Description Data Harriett rce(s) Supporting Document(s ) ID Date Data Source [id number] 03/26/2019 10:49:07 AM EST [facility] Patient not tolerating bipap. Placed on 28% ventimask. rn aware. Name Value Range Interpretation Code Description Data Harriett rce(s) Supporting Document(s ) ID Date Data Source [id number] 03/26/2019 11:20:53 AM EST [facility] Value Range Interpretation Description Data Sup porting Code Source(s) Document(s ) Lactate 1.5 0.4-2.0 [facility] [Moles/volu MMOL/L [facility] me] in Hospital Serum or Plasma ID Date Data Source [id number] 03/26/2019 09:53:10 AM EST [facility] Value Range Interpretation Description Data Sup porting Code Source(s) Document(s ) pH of Arterial 7.40 7.35-7.4 [facility] blood 5 [facility] Carbon dioxide 48 mmHg 32-48 [facility] [Partial [facility] pressure] in Hospital Arterial blood Oxygen 49 mmHg 83-108 Below lower panic [facility] [Partial limits [facility] pressure] in Hospital Arterial blood Carbon 31 19-24 Above high normal [facility] dioxide, total mmol/L [facility] [Moles/volume] Hospital in Arterial blood Bicarbonate 30 21-28 Above high normal [facility] od [Moles/volume] mmol/L [facility] in Arterial Hospital blood Oxygen 84 % 94-98 Below low normal [facility] saturation in [facility] Blood Hospital Base excess in 4.0 0-3 Above high normal [facility] Arterial blood mmol/L [facility] by calculation Hospital Body site [facility] Arterial [facility] patency Wrist [facility] artery --pre Hospital arterial puncture VENTURI MASK4 Oxygen/Inspired gas Respiratory system 28.0 % [facility] --on ventilator CALLED TO AND READ BACK BYJACQUELYN CALDERON RN at 0952 by JOHNSON MCKEON [id number] ID Date Data Source [id number] 03/26/2019 09:12:46 AM EST [facility] Value Range Interpretation Code Description Data Supporting Source(s) Document(s ) Lactate 0.4-2.0 [facility] [Moles/volum [facility] e] in Serum Hospital or Plasma CALLED TO AND READ BACK BYJACQUELYN CALDERON RN 03/26/19 911AM LUCIEN CROSS ID Date Data Source [id number] 03/26/2019 09:05:36 AM EST [facility] Name Value Range Interpretation Description Data Sup porting Code Source(s) Document(s ) Sodium 143 136-145 [facility] [Moles/volume] mmol/L [facility] in Serum or Hospital Plasma Potassium 4.2 3.5-5.1 [facility] [Moles/volume] mmol/L [facility] in Serum or Hospital Plasma Chloride 111 98-107 Above high normal [facility] [Moles/volume] mmol/L [facility] in Serum or Hospital Plasma Carbon 28 21-32 [facility] dioxide, total mmol/L [facility] [Moles/volume] Hospital in Serum or Plasma Anion gap in 8 mmol/L 10-20 Below low normal [facility] od Serum or [facility] Plasma Hospital Glucose 105 74-106 [facility] [Mass/volume] mg/dL [facility] in Serum or Hospital Plasma Urea nitrogen 12 mg/dL 7-18 [facility] [Mass/volume] [facility] in Serum or Hospital Plasma Creatinine 0.32 0.70-1.3 Below low normal [facility] [Mass/volume] mg/dL 0 [facility] in Serum or Hospital Plasma Glomerular >60 [facility] filtration [facility] rate/1.73 sq M Hospital predicted among blacks [Volume Rate/Area] in Serum or Plasma by Creatinine-bas ed formula (MDRD) Glomerular >60 [facility] filtration [facility] rate/1.73 sq M Hospital predicted among non-blacks [Volume Rate/Area] in Serum or Plasma by Creatinine-bas ed formula (MDRD) Calcium 8.0 8.5-10.1 Below low normal [facility] [Mass/volume] mg/dL [facility] in Serum or Hospital Plasma Phosphate 2.3 2.5-4.9 Below low normal [facility] [Mass/volume] mg/dL [facility] in Serum or Hospital Plasma Albumin 1.9 g/dL 3.5-4.7 Below low normal [facility] [Mass/volume] [facility] in Serum or Hospital Plasma by Bromocresol purple (BCP) dye binding method ID Date Data Source [id number] 03/26/2019 09:05:36 AM EST [facility] Name Value Range Interpretation Description Data Sup porting Code Source(s) Document(s ) Magnesium 1.8 mg/dL 1.6-2.6 [facility] [Mass/volume] [facility] in Serum or Hospital Plasma ID Date Data Source [id number] 03/26/2019 08:50:30 AM EST [facility] Name Value Range Interpretation Description Data Sup porting Code Source(s) Document(s ) Leukocytes 14.2 4.8-10.6 Above high normal [facility] - [#/volume] in K/uL [facility] Blood by [facility] Automated count Hospital Erythrocytes 3.43 4.70-6.0 Below low normal [facility] - [#/volume] in M/uL 0 [facility] Blood by [facility] Automated count Hospital Hemoglobin 10.7 14.0-18. Below low normal [facility] - [Mass/volume] in g/dL 0 [facility] Blood [facility] Hospital Hematocrit 33.6 % 42.0-52. Below low normal [facility] - [Volume 0 Good Fraction] of [facility] by Hospital Automated count Erythrocyte mean 98.0 FL 81.0-94. Above high normal [facility] - corpuscular 0 Good volume [Entitic Taoist volume] by Hospital Automated count Erythrocyte mean 31.2 PG 27.0-35. [facility] - corpuscular 0 Good hemoglobin [facility] [Entitic mass] Hospital by Automated count Erythrocyte mean 31.8 30.7-37. [facility] - corpuscular g/dL 3 Good hemoglobin [facility] [Mass/volume] by Automated count Erythrocyte 16.2 % 11.5-14. Above high normal [facility] - distribution 0 Good width [Ratio] by [facility] Automated count Hospital Platelets 270 K/uL 130-400 [facility] - [#/volume] in Good Blood by [facility] Automated count Hospital Platelet mean 9.6 FL 9.2-11.8 [facility] - volume [Entitic Good volume] in Blood [facility] by Automated Hospital count Segmented 96 % 48.0-72. Above high normal [facility] - neutrophils/100 0 Good leukocytes in Taoist Blood [facility] Lymphocytes/100 3 % 18.0-40. Below low normal [facility] - leukocytes in 0 Good Blood [facility] Monocytes/100 1 % 2.0-12.0 Below low normal [facility] - leukocytes in [facility] Eosinophils/100 0 % 0.0-7.0 [facility] - leukocytes in [facility] Basophils/100 0 % 0.0-3.0 [facility] - leukocytes in [facility] Segmented 13.6 1.5-6.6 Above high normal [facility] - neutrophils K/UL Good [#/volume] in [facility] Lymphocytes 0.5 K/UL 1.5-3.5 Below low normal [facility] - [#/volume] in [facility] Monocytes 0.1 K/UL 0.0-1.0 [facility] - [#/volume] in [facility] Eosinophils 0.0 K/UL 0.0-0.7 [facility] - [#/volume] in [facility] Basophils 0.0 K/UL 0.0-0.1 [facility] - [#/volume] in [facility] Differential [facility] - cell count [facility] Immature 0 % 0.0-2.0 [facility] - granulocytes/100 [facility] leukocytes in [facility] Hospital Automated count ID Date Data Source [id number] 03/26/2019 07:28:48 AM [facility] Verbal shift change report given to Jacquelyn (oncoming nurse) by Brad (offgoingnurse). Report included the following informatio n SBAR, Kardex, ED Summary,Procedure Summary, Intake/Output, MAR and Recent Results. Name Value Range Interpretation Code Description Data [facility] Supporting Document(s ) ID Date Data Source [id number] 03/26/2019 07:23:10 AM [facility] Review BIPAP settings, alarms and skin a dhesive with next shift RT Ofelia DeidreBiPAP wiped down with bleach wipes Name Value Range Interpretation Code Description Data Harriett rce(s) Supporting Document(s ) ID Date Data Source [id number] 03/26/2019 07:16:50 AM EST [facility] Check the patient with RN Brad rodriguez For any skin breakdown while usingthe BiPAP mask. RN aware of two finger tech to mask tightness,and use of maskclips for any interventions Name Value Range Interpretation Code Description Data Harriett rce(s) Supporting Document(s ) ID Date Data Source [id number] 03/26/2019 07:55:13 AM [facility] Name Value Range Interpretation Description Data Sup porting Code Source(s) Document(s ) Sodium 149 40-220 [facility] Good [Moles/volu MMOL/L [facility]] in Hospital Urine ID Date Data Source [id number] 03/26/2019 07:33:37 AM [facility] Name Value Range Interpretation Description Data Sup porting Code Source(s) Document(s ) Osmolality of [id number] [facility] Urine MOSM/kg [facility] H2O Hospital ID Date Data Source [id number] 03/26/2019 04:27:35 AM [facility] The history is provided by the EMS pj nava.3:23 AM: Evelio Carlin is a 68 y.o. male with history of COPD, GERD,hyperpar athyroidism, Parkinsonism, pneumonia, schizophrenia, and pulmonaryemboli with a surgical history of gastrostomy who presents to the EmergencyDepartment via emergency medical services sent in from long-term for hypoxiaand possible pne [facility]. [facility] The patient is nonverbal at baseline and cannot provide any history ofreview of systems at the time. 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 No pertinent family history.So cial HistorySocioeconomic History Marital status: SINGLE Spouse name: Not on file Number of children: Not on file Years of education: Not on file Highest educatio n level: Not on fileOccupational History Not on fileSocial Needs Financial resource strain: Not on file Food insecurity: Worry: Not on file Inability: Not on file Tra nsportation needs: Medical: Not on file Non-medical: Not on fileTobacco Use Smo wanda status: Never Smoker Smokeless tobacco: Never UsedSubstance and Sexual Activity Alcohol use: No Drug use: No Sexual activity: Not on fileLifestyle Physical activity: Days per week: Not on file Minutes per session: Not on file Stress : Not on fileRelationships Social connections: Talks on phone: Not on yoshi e Gets together: Not on file Attends quaker service: Not on file Active m ember of club or organization: Not on file Attends meetings of clubs or organizatio ns: Not on file Relationship status: Not on file Intimate partner violence: Fear o f current or ex partner: Not on file Emotionally abused: Not on file Physica lly abused: Not on file Forced sexual activity: Not on fileOther Topics Concer n Service Not Asked Blood Transfusions Not Asked Caffeine Concern Not Asked Occupational Exposure Not Asked Hobby Hazards Not Asked Sleep Concern N ot Asked Stress Concern Not Asked Weight Concern Not Asked Special Diet Not Aske d Back Care Not Asked Exercise Not Asked Bike Helmet Not Asked Seat Belt Not Ask ed Self-Exams Not AskedSocial History Narrative Not on fileALLERGIES: Patient has no known allergies.Review of SystemsUnable to perform ROS: Psychiatri c disorderVitals: 03/25/19 0330 03/25/19 0335 03/25/19 0340 03/25/19 0400BP: 98/60 1 25/61Pulse: 96 91 88Resp: (!) 31 (!) 40 (!) 38Temp:SpO2: (!) 77% 90% 91% 91% Pulse oximetry recorded at 75% which is clinically significant for hypoxia.Physical ExamVit als signs and nursing note reviewed.Constitutional: Appearance: Cindi alonso is well-developed.HENT: Head: Normocephalic and atraumatic.Eyes: Con junctiva/sclera: Conjunctivae normal. Pupils: Pupils are equal, round, and shilo ctive to light.Neck: Musculoskeletal: Normal range of motion.Cardiovascular: Rate and Rhythm: Tachycardia present.Pulmonary: Effort: Respiratory distress present. Breath sounds: Normal breath sounds. No wheezing or rales.Ches t: Chest wall: No tenderness.Abdominal: General: There is no distension. Tende rness: There is no tenderness.Musculoskeletal: Normal range of motion. General: No tenderness.Skin: General: Skin is warm and dry. Colorat ion: Skin is not pale. Findings: No rash.Neurological: Mental Status: He i s alert and oriented to person, place, and time. Cranial Nerves: No cranial nerve deficit.Psychiatric: Behavior: Behavior normal. Thought Content: Thought rolando nt normal. Judgment: Judgment normal.MDMNumber of Diagnoses or Managem ent OptionsPneumonia of left lower lobe due to infectious organism (HCC):Diagnosis m anagement comments: Differential Diagnosis includes but is notlimited to: pneumonia , virals syndrome, COPD exacerbation, influenzaMy initial impression is that o f dykipnic and hypoxia. Patient with recurrentpneumonia. We will work up for pneumonia, reassess and likely work up forfurther treatment.Amount and/or Compl exity of Data ReviewedClinical lab tests: ordered and reviewedTests in the radiolo gy section of CPT : ordered and reviewedDecide to obtain previous medica l records or to obtain history from someoneother than the patient: yesObtain history from someone other than the patient: yesReview and summarize past medical rec ords: yesIndependent visualization of images, tracings, or specimens: yesProcedEdouard Chaparro Charles A, MD, reviewed the patient's past history, allergies andhom e medications as documented in the nursing chart.Labs:Recent Results (from the past 12 hour(s))LACTIC ACID Collection Time: 03/25/19 3:10 AMResult Value Ref Range Lactic acid 2.0 0.4 - 2.0 MMOL/LCBC WITH AUTOMATED DIFF Collection Time: 03/25/19 3:10 AMResult Value Ref Range WBC 18.8 (H) 4.8 - 10.6 K/uL RBC 4.30 (L) 4.70 - 6.00 M/uL HGB 13.5 (L) 14.0 - 18.0 g/dL HCT 42.0 42.0 - 52.0 % MCV 97.7 (H) 81.0 - 94.0 F L MCH 31.4 27.0 - 35.0 PG MCHC 32.1 30.7 - 37.3 g/dL RDW 16.1 (H) 11.5 - 14.0 % JOCELYN TELET 365 130 - 400 K/uL MPV 9.5 9.2 - 11.8 FL NEUTROPHILS 80 (H) 48.0 - 72.0 % LYMP HOCYTES 13 (L) 18.0 - 40.0 % MONOCYTES 7 2.0 - 12.0 % EOSINOPHILS 0 0.0 - 7.0 % BASOP HILS 0 0.0 - 3.0 % ABS. NEUTROPHILS 15.0 (H) 1.5 - 6.6 K/UL ABS. LYMPHOCYTES 2.5 1.5 - 3.5 K/UL ABS. MONOCYTES 1.3 (H) 0.0 - 1.0 K/UL ABS. EOSINOPHILS 0.0 0.0 - 0.7 K/UL ABS. BASOPHILS 0.0 0.0 - 0.1 K/UL DF AUTOMATED IMMATURE GRANULOCYTES 0 0.0 - 2.0 %METABOLIC PANEL, COMPREHENSIVE Collection Time: 03/25/19 3:10 AMResult Value Ref Range Sodium 135 (L) 136 - 145 mmol/L Potassium 3.5 3.5 - 5.1 mmol/L Ch loride 93 (L) 98 - 107 mmol/L CO2 39 (H) 21 - 32 mmol/L Anion gap 6 (L) 10 - 20 mmol/L Glucose 95 74 - 106 mg/dL BUN 11 7 - 18 mg/dL Creatinine 0.48 (L) 0.70 - 1.30 mg /dL GFR est AA >60 >60 ml/min/1.73m2 GFR est non-AA >60 >60 ml/min/1.73m2 Calcium 9.6 8.5 - 10.1 mg/dL Bilirubin, total 0.3 0.2 - 1.0 mg/dL ALT (SGPT) 15 13 - 61 U/L AST (SGOT) 11 (L) 15 - 37 U/L Alk. phosphatase 83 45 - 117 U/L Protein, total 7.1 6.4 - 8. 2 g/dL Albumin 2.9 (L) 3.5 - 4.7 g/dL Globulin 4.2 1.7 - 4.7 g/dL A-G Ratio 0. 7 0.7 - 2.8Leukocytosis with borderline lactic acidosis consistent with infectio n.3:23 AMEKG:Normal sinus rhythm, no significant ST changes, leftward axis, n ormal intervals,normal R wave progression. Rate 98 beats per minute.Radiology:Radio logist interpretation was not available at the time of treatment.Worsening left low er lobe infiltrate when compared chest X-ray done on 2018. Interpreted by Jessie Neumann MDED Course:6:03 AM Case presentation discussed with Dr. Patricio Hills who will admit thepatient. After reviewing the results from the patient's diagnostic workup, myimpression is that of pneumonia. We will admit to the hospital ist/primary careprovider for further workup and treatment. The patient was informed of thefindings and was agreeable with the management plan. The patient remainedoth erwise stable while under my care in the emergency department.I have reviewed the following home medications:Prior to Admission medicationsMedication Sig Star t Date End Date Taking? Authorizing Providerheparin sodium,porcine (HEPARIN, PORCINE,) 5,000 unit/mL injection 1 mL bySubCUTAneous route every twelve (12) h ours every twelve (12) hours. 03/17/19Mili Hills DOmultivitamin (MULTI-DELYN, WE LLESSE) liqd 5 mL by Per G Tube route daily.03/17/19 Mili Hills DOaceta minophen (TYLENOL) 32MG/ML soln solution Take 20.3 mL by mouth every four(4) hours as needed for Pain or Fever. 03/17/19 Mili Hills DOvalproic acid, as sodium salt , (DEPAKENE) 250 mg/5 mL (5 mL) soln oral [id number] mg by Per G Tube route every twelve (12) hours. Provider, Historicalacetylcysteine (MUCOMYST) 100 mg/mL (10 %) nebulizer solution Take 4 mL byinhalation two (2) times a day. Pro vider, Historicalomeprazole (PRILOSEC) 2 mg/mL susp 2 mg/mL oral suspension (comp ounded) 40 mg byPer G Tube route daily. Provider, Historicalclorazepate (TRANXEN E) 3.75 mg tablet 1 Tab by Per G Tube route nightly. MaxDaily Amount: 3.75 mg. iMli Hills DOcinacalcet (SENSIPAR) 30 mg tablet Take 2 Tabs by mouth daily. Patient taking differently: 30 mg daily. Via G tube 12/30/18 Mili Hills DOlamoT RIgine (LAMICTAL) 25 mg tablet 2 Tabs by Per G Tube route two (2) times aday. 12/30/18 Mili Hills DOalbuterol-ipratropium (DUO-NEB) 2.5 mg-0.5 mg/3 ml nebu 3 mL b y Nebulizationroute every six (6) hours. Every 6 hours while awakePatient taking differently: 3 mL by Nebulization route every four (4) hours asneeded. Every 6 hours w hile awake 12/30/18 Mili Hills DObudesonide (PULMICORT) 0.5 mg/2 mL nbs p 2 mL by Nebulization route two (2) timesa day. 12/30/18 Mili Hills DOFleisc hnerJessie MD I, Danielle N Maraia, am serving as a scribe to document services personallyperformed by Jessie Neumann MD based on my observation and thepro vider's statements to me.I, Jessie Neumann MD, attest that the person(s) noted above, acting asmy scribe(s) noted above, has observed my performance of th e services and hasdocumented them in accordance with my direction. I have per sonally reviewed theabove information and have ordered and reviewed the diagnostic studies, unlessotherwise noted. Name Value Range Interpretation Code Description Data Harriett rce(s) Supporting Document(s ) ID Date Data Source [id number] 03/26/2019 02:33:48 AM EST [facility] Problem: Pressure Injury - Risk ofGoal: *Prevention of pressure injuryDescriptionDocument Butch Scale a nd appropriate interventions in the flowsheet.Outcome: Progressing Towards G oalNote: Pressure Injury Interventions:Sensory Interventions: Ass ess changes in LOCMoisture Interventions: Internal/External urinary devices, Absor bent underpads,Apply protective barrier, creams and emollients, Check for inconti nence Q2 hoursand as neededActivity Interventions: Pressure redistribution b ed/mattress(bed type)Mobility Interventions: Pressure redistribution bed/mattress (be d type)Nutrition Interventions: Document food/fluid/supplement intakeFriction and Shear Interventions: Minimize layersProblem: Falls - Risk ofGoal: *Absence of FallsDe scriptionDocument Samra Fall Risk and appropriate interventions in [facility] et.Outcome: Progressing Towards GoalNote: Fall Risk Interventions:Mentation Interv entions: Adequate sleep, hydration, pain control, Bed/chair exitalarm, Door open when patient unattended, Toileting roundsElimination Interventions: Bed/maggy ir exit alarm, Toileting schedule/hourlyroundsProblem: PainGoal: *Control of PainOutcome: Progressing Towards Goal Name Value Range Interpretation Code Description Data Harriett rce(s) Supporting Document(s ) ID Date Data Source [id number] 03/26/2019 12:36:27 AM [facility] ADMISSION NOTENAME: Evelio Morgan B: 1950MRN: [id number]/Time: 03/25/2019 10:59 PMSubjective:CHIEF COMP LAINT: Acute Respiratory FailureHISTORY OF PRESENT ILLNESS:Evelio is a 68 y.o. m fuentes who presents from [facility] with medical history ofmedical history of Dysphagia, recurrent aspiration pneumonia, s/p g/tconversion to jtube on 02/16/19, hyperlipidemia,hyperparathyroid,unspecif ied,seizure, large hiatal hernia, anxiety disorder, personal history ofpulmonary e mbolus,COPD, GERD, Schizophrenia unspecified, Kyphosis, Parkinsondisease, Severe inte llectual disabilities.and Generalized muscle weakness.As per the long-term transfe r record, the patient was transferred to the EDfor Hypoxia, he was found with O2 SAT 77 % on O2 NC 4 LPM and tachypneic. Hewas later placed on NRBM. Patient has a vivian gged jtube and the long-term hasbeen using the gtube site for feedings and administ ration of medications.Pt was seen at [facility] by Dr Motley gi and plans were for jtube pl acement, that wasscheduled for today.The patient is nonverbal and unable to parti cipate with his history.In the ED, pt was Hypoxic and tachypneic. Hs chest XR was read as worsening leftlower lobe infiltrate compared with chest XR done on March 11, 2019.Labs were remarkable for Leukocytosis (18,000) and Lactic acid 2. 0.ABG with pH 7.43/53/86/35 O2 SAT 99 % on BIPAP FiO2 100%.Pt was admitted with enc ounter diagnosis of Acute Hypercapneic and HypoxemicRespiratory Failure and Pneumon ia.Pt received IV Cefepime and was continued on BiPAPThe patient was seen and examine d at bedside with fatemeh Perry. He iswearing BIPAP mask. 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 No pertinent family history.No Known AllergiesPrior to Admis elio medicationsMedication Sig Start Date End Date Taking? Authorizing Providerheparin sodium,porcine (HEPARIN, PORCINE,) 5,000 unit/mL injection 1 mL bySubCUTAneous ro manzanita every twelve (12) hours every twelve (12) hours. 03/17/19Mili Hills DOmultivi tamin (MULTI-DELYN, WELLESSE) liqd 5 mL by Per G Tube route daily.03/17/19 Mili Hills DOacetaminophen (TYLENOL) 32MG/ML soln solution Take 20.3 mL by mouth ever y four(4) hours as needed for Pain or Fever. 03/17/19 Mili Hills DOvalproic ac id, as sodium salt, (DEPAKENE) 250 mg/5 mL (5 mL) soln oral [id number] mg by Per G Tu be route every twelve (12) hours. Provider, Edieacetylcysteine (MUCO MYST) 100 mg/mL (10 %) nebulizer solution Take 4 mL byinhalation two (2) times a d ay. Provider, Edieclorazepate (TRANXENE) 3.75 mg tablet 1 Tab by Per G Tube route nightly. MaxDaily Amount: 3.75 mg. 12/30/18 Mili Hills DOcinacal cet (SENSIPAR) 30 mg tablet Take 2 Tabs by mouth daily.Patient taking differently: 30 mg daily. Via G tube 12/30/18 Mili HillsDOlamoTRIgine (LAMICTAL) 25 mg t ablet 2 Tabs by Per G Tube route two (2) times aday. 12/30/18 Mili Hills D Oalbuterol-ipratropium (DUO-NEB) 2.5 mg-0.5 mg/3 ml nebu 3 mL by Nebulizationroute e very six (6) hours. Every 6 hours while awakePatient taking differently: 3 mL by Nebulization route every four (4) hours asneeded. Every 6 hours while awake 12/30 Mili Hills DObudesonide (PULMICORT) 0.5 mg/2 mL nbsp 2 mL by Neb ulization route two (2) timesa day. 12/30/18 Mili Hills DOREVIEW OF SYSTEMS: [x ] Unable to obtain ROS due to patient factors.Objective:VITALS:Visit VitalsBP 123/78 (BP 1 Location: Left arm, BP Patient Position: At rest)Pulse 82Temp 97.7 F ( 36.5 C)Resp 18Wt 54.4 kg (120 lb)SpO2 98%BMI 21.95 kg/m PHYSICAL EXAM:General: Dulce ke, Lethargic, cooperative, no distress, appears stated age.Wearing BIPAP maskHea d: Normocephalic, without obvious abnormality, atraumatic.Eyes: Conjunct ivae clear, anicteric sclerae. Pupils are equalNeck: Supple, symmetrical, no stephanie nopathy, no carotid bruit and no JVD.Back: Symmetric, No CVA tenderness.Lungs: Bilateral air entry. Decreased breath sounds at left base. NoWheezing or Rhonchi. No rales.Chest wall: No Accessory muscle use.Heart: Regular rate and rhythm, n o murmur, or rub.Abdomen: Positive g/t in place, non-tender. Not distended. Bowel soundsnormal. No massesExtremities: Lower Limbs contractures, No cyanosis. No deepthi ma. No clubbingSkin: Texture, turgor normal. No rashes or lesions. Not Jaund icedLymph nodes: Cervical, supraclavicular normal.Psych: Not agitatedNeurologic: E OMs intact. No facial asymmetry. No aphasia or slurred speech.Generalized muscle wea kness, nonverbalLAB DATA REVIEWED:Recent Results (from the past 24 hour(s))CULTUR E, BLOOD Collection Time: 03/25/19 2:55 AMResult Value Ref Range Special Request s: NO SPECIAL REQUESTS Culture result: NO GROWTH AFTER 11 HOURSCULTURE, BLOOD Manuel ection Time: 03/25/19 3:10 AMResult Value Ref Range Special Requests: NO SPECIAL R EQUESTS Culture result: NO GROWTH AFTER 11 HOURSLACTIC ACID Collection Time: 3:10 AMResult Value Ref Range Lactic acid 2.0 0.4 - 2.0 MMOL/LCBC WITH AUTOMATED D IFF Collection Time: 03/25/19 3:10 AMResult Value Ref Range WBC 18.8 (H) 4.8 - 10.6 K/uL RBC 4.30 (L) 4.70 - 6.00 M/uL HGB 13.5 (L) 14.0 - 18.0 g/dL HCT 42.0 42.0 - 52. 0 % MCV 97.7 (H) 81.0 - 94.0 FL MCH 31.4 27.0 - 35.0 PG MCHC 32.1 30.7 - 37.3 g/dL RDW 16.1 (H) 11.5 - 14.0 % PLATELET 365 130 - 400 K/uL MPV 9.5 9.2 - 11.8 FL NEUTROPHI LS 80 (H) 48.0 - 72.0 % LYMPHOCYTES 13 (L) 18.0 - 40.0 % MONOCYTES 7 2.0 - 12.0 % E OSINOPHILS 0 0.0 - 7.0 % BASOPHILS 0 0.0 - 3.0 % ABS. NEUTROPHILS 15.0 (H) 1.5 - 6. 6 K/UL ABS. LYMPHOCYTES 2.5 1.5 - 3.5 K/UL ABS. MONOCYTES 1.3 (H) 0.0 - 1.0 K/UL AB S. EOSINOPHILS 0.0 0.0 - 0.7 K/UL ABS. BASOPHILS 0.0 0.0 - 0.1 K/UL DF AUTOMATE D IMMATURE GRANULOCYTES 0 0.0 - 2.0 %METABOLIC PANEL, COMPREHENSIVE Collecti on Time: 03/25/19 3:10 AMResult Value Ref Range Sodium 135 (L) 136 - 145 mmol/L Po tassium 3.5 3.5 - 5.1 mmol/L Chloride 93 (L) 98 - 107 mmol/L CO2 39 (H) 21 - 32 mmol/ L Anion gap 6 (L) 10 - 20 mmol/L Glucose 95 74 - 106 mg/dL BUN 11 7 - 18 mg/dL Creat inine 0.48 (L) 0.70 - 1.30 mg/dL GFR est AA >60 >60 ml/min/1.73m2 GFR est non-AA >60 >60 ml/min/1.73m2 Calcium 9.6 8.5 - 10.1 mg/dL Bilirubin, total 0.3 0.2 - 1.0 mg/ dL ALT (SGPT) 15 13 - 61 U/L AST (SGOT) 11 (L) 15 - 37 U/L Alk. phosphatase 83 45 - 117 U/L Protein, total 7.1 6.4 - 8.2 g/dL Albumin 2.9 (L) 3.5 - 4.7 g/dL Globulin 4.2 1.7 - 4.7 g/dL A-G Ratio 0.7 0.7 - 2.8OSMOLALITY, SERUM/PLASMA Collection T jose alejandro: 03/25/19 3:10 AMResult Value Ref Range Osmolality, serum/plasma 285 280 - 300 M OSM/kg H2OTSH 3RD GENERATION Collection Time: 03/25/19 3:10 AMResult Value Ref Range TSH 2.640 0.360 - 3.740 uIU/mLURIC ACID Collection Time: 03/25/19 3:10 AMResult Value Ref Range Uric acid 3.8 3.5 - 7.2 mg/dLEKG, 12 LEAD, INITIAL Collection Ti me: 03/25/19 3:23 AMResult Value Ref Range Ventricular Rate 98 BPM Atrial Rate 98 B PM P-R Interval 135 ms QRS Duration 90 ms Q-T Interval 360 ms QTC Calculation (Bezet) 460 ms Calculated P [place] 50 degrees Calculated R [place] -40 degrees Calculated T [place] 68 degrees Diagnosis Sinus rhythmLeft axis deviationProbable latera l infarct, oldConfirmed by Byron Simpson MD ([id number]) on 03/25/2019 7:46:47 PMBLOOD GAS , ARTERIAL Collection Time: 03/25/19 4:30 AMResult Value Ref Range pH 7.43 7.35 - 7.45 PCO2 53 (H) 32 - 48 mmHg PO2 86 83 - 108 mmHg CO2, TOTAL 37 (H) 19 - 24 mmol/L BI CARBONATE 35 (H) 21 - 28 mmol/L O2 SAT 99 (H) 94 - 98 % BASE EXCESS 9.1 (H) 0 - 3 mmol /L SITE RIGHT RADIAL MIRANDA'S TEST POSITIVE DEVICE BIPAP FIO2 100.0 % MODE BIPAP PEE P/CPAP 7 PRESSURE SUPPORT 14 RATE 15 Performed by [id number] W/ RFLX ANTONIO ROSCOPIC Collection Time: 03/25/19 4:50 AMResult Value Ref Range Color YELLOW YE L Appearance CLEAR CLEAR Specific gravity 1.020 1.003 - 1.030 pH (UA) 8.5 (H) 4.6 - 8.0 Protein NEGATIVE NEG mg/dL Glucose NEGATIVE NEG mg/dL Ketone NEGATIVE NEG mg/dL Bilirubin NEGATIVE NEG Blood NEGATIVE NEG Urobilinogen 1.0 0.2 - 1.0 EU/dL Ni trites NEGATIVE NEG Leukocyte Esterase NEGATIVE NEGLACTIC ACID Collection Time : 03/25/19 7:10 AMResult Value Ref Range Lactic acid 1.9 0.4 - 2.0 MMOL/LCORTISOL , AM Collection Time: 03/25/19 7:10 AMResult Value Ref Range Cortisol, a.m. 24.7 (H) 4.3 - 22.4 ug/dLAssessment/Plan:Active Problems: Acute hypoxemic respiratory f ailure (HCC) (03/25/2019) Acute Hypercapneic, Hypoxemic Respiratory Failure Pneumonia, likely aspiration COPD Leukocytosis Malfunctioning JTube Dysphagia (s/p conv ersion of gtube to jtube) Anxiety Disorder Mentally Challenged PLAN:Risk of deterioration: []Low [x]Moderate [] High1.Admit to telemetry2.IV cefepime3.Give IV Vancomycin 1 gm x1 dose4. Consult pul monary5. BIPAP6.Consult ID7.Nebulizers8. IV Solu-Medrol9. Consult GI10. Monitor CBC1 1. Follow up cultruProphylaxis: []Lovenox []Coumadin [x]Hep SQ [x]SCD's [x]H2B/ PPIDisposition: []Home w/ Family []HH PT,OT,RN [x]SNF/LTC []SAH/RehabDiscu ssed Code Status: [x]Full Code []DNR Care Plan discussed with: []Patient []Family []ED Care Manage r [x]ED Doc [x]Specialist Gillian Brewer/W pt's RN on medical floor Admitting Physician: Mili Hills DO March 152018 10:59 PM Name Value Range Interpretation Code Description Data Harriett rce(s) Supporting Document(s ) ID Date Data Source [id number] 03/25/2019 05:54:54 PM EST [facility] - [facility] PULMONARY/ CCM- Consult [facility]Krystian Monae MD., F.C.C.P.Stella Hamilton MD., F.C.C.P. [address] [place] [id number] [place] [address] 109 Patient: Evelio Carlin Sex: male DOA: 03/25/2019Date of : 1950 Age: 68 y.o. LOS: LOS: 0 day sPCP: Reinier, Mili, DOSubjective:CHIEF COMPLAINT:DEVELOPED SEVERE ACUTE RESPIRATORY DISTRESS AND HYPOXEMIA SPO2 = 77 5 ATHIS RESIDENCE. HISTORY OO PRESENT ILLNESS .3:23 AM: Evelio Carlin is a 68 y.o. male with history of COPD, GERD,hyperparathyroidism, Parkinsonism, pneumonia, schizophrenia, and pulmonaryemboli with a surgical history of gastrostomy who presents to the [facility] via emergency medical services sent in from long-term for hypoxiaand possible pneumonia. The patient has multiple incidences of pneumonia in thepast. The patient is nonverbal at baseline and cannot provide any history ofreview of systems at the time. PATIENT HAVE SEVERE CEREBRAL PALSY , MENTAL RETARDATION AND IS NON VERBAL .NO HX CANNOT BE CONFIRMED FROM PATIENT , CHART IS REVIEWED.MULTIPLE AD MISSIONS FOR ASPIRATION PNEUMONIA , HE IS BED RIDDEN . PATIENTT NOW IS ON BIPAP SUPPORT SPO2 = 96% ON FIO2 65% . 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) Pneumonia Psychiatric disorder schizophrenia Pulmonary emboli (HCC) Schizophrenia (HCC) Past Surgical HistoryPast Surgical History:Procedure L aterality Date HX GASTROSTOMY PEG- replaced 11/2018 We were asked to admit f or work up and evaluation of the above problems.Past Medical History:Diagnosis Date Chronic obstructive pulmonary disease (HCC) Diaphragmatic hernia without obst ruction and without gangrene GERD (gastroesophageal reflux disease) Hyper parathyroidism (HCC) Mental retardation 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 No pertinent family history.No Known AllergiesPrior to Admission medicationsMedication Sig Start Date End Date Taking? Authorizing Providerheparin sodium,porcine (HEPARIN, PORCINE,) 5,000 unit/mL injection 1 mL bySubCUTAneous route every twelve (12) hours every twelve (12 ) hours. 03/17/19Mili Hills DOmultivitamin (MULTI-DELYN, WELLESSE) l iqd 5 mL by Per G Tube route daily.03/17/19 Mili Hills DOacetaminophen (TYLENO L) 32MG/ML soln solution Take 20.3 mL by mouth every four(4) hours as needed for Pain or Fever. 03/17/19 Mili Hills DOvalproic acid, as sodium salt, (DEPAKE NE) 250 mg/5 mL (5 mL) soln oral uumerbls830 mg by Per G Tube route every twelve (12) hours. Provider, Edieacetylcysteine (MUCOMYST) 100 mg/mL (10 %) nebulizer so lution Take 4 mL byinhalation two (2) times a day. Provider, Edieclorazepate (TRANXENE) 3.75 mg tablet 1 Tab by Per G Tube route nightly. MaxDaily Amount: 3.75 mg. 12/30/18 Mili Hills DOcinacalcet (SENSIPAR) 30 mg tablet Take 2 Tabs by m outh daily.Patient taking differently: 30 mg daily. Via G tube 12/30/18 Maryann HillsDOlamoTRIgine (LAMICTAL) 25 mg tablet 2 Tabs by Per G Tube route two (2) times a day. 12/30/18 Mili Hills DOalbuterol-ipratropium (DUO-NEB) 2.5 mg -0.5 mg/3 ml nebu 3 mL by Nebulizationroute every six (6) hours. Every 6 hours while awakePatient taking differently: 3 mL by Nebulization route every four (4) hours asneeded. Every 6 hours while awake 12/30/18 Mili Hills DObudesonide (PULMICORT ) 0.5 mg/2 mL nbsp 2 mL by Nebulization route two (2) timesa day. 12/30/18 Maryam Hills DOREVIEW OF SYSTEMS: SEVERE MENTAL RETARDATION , CANNOT DO ROS .Gener al: negative for fever, chills, sweats, weaknessEyes: negative for blurred visio n, eye pain, loss of vision, diplopiaEar Nose and Throat: negative for rhinorrhea, pha ryngitis, otalgia, tinnitus,speech or swallowing difficultiesRespiratory: neg ative for cough, sputum production, SOB, wheezing, DAVALOS,pleuritic painCardiology: negative for chest pain, palpitations, orthopnea, PND, edema,syncopeGastrointes tinal: negative for abdominal pain, N/V, dysphagia, change in bowelhabits, bleedi ngGenitourinary: negative for frequency, urgency, dysuria, hematuria, incontinenc eMuskuloskeletal : negative for arthralgia, myalgiaHematology: negative for easy bru ising, bleeding, lymphadenopathyDermatological: negative for rash, ulceration, mole change, new lesionEndocrine: negative for hot flashe s or polydipsiaNeurological: negative for headache, dizziness, confusion, focal we akness,paresthesia, memory loss, gait disturbancePsychological: negative for a nxiety, depression, agitationObjective:VITALS:Patient Vitals for the past 24 hrs: BP Temp Pulse Resp SpO2 Xshhpj38/11/19 1640 - - - - 97 % - 1542 (!) 114/94 97.5 F (36.4 C) 73 18 - -03/25/19 1358 - - - - 100 % -03/25/19 1 120 - - - - 100 % -03/25/19 1018 132/68 99.2 F (37.3 C) 86 28 90 % -03/25/19 0930 - 99.5 F (37.5 C) 83 18 99 % -03/25/19 0830 107/58 - 82 21 100 % -03/25/19 0823 - - - - - 54.4 kg (120 lb)03/25/19 0800 130/63 - 81 23 99 % -03/25/19 0730 112/69 - 80 19 100 % -03/25/19 0709 - 99.6 F (37.6 C) - - - -03/25/19 0709 - - 83 15 100 % - 0700 117/62 - 78 17 - -03/25/19 0630 110/53 - 80 22 100 % -03/25/19 0530 116/ 66 - 77 21 100 % -03/25/19 0400 125/61 - 88 (!) 38 91 % -03/25/19 0340 - - - - 91 % -03/25/19 0335 - - 91 (!) 40 90 % -03/25/19 0330 98/60 - 96 (!) 31 (!) 77 % - 9 0306 - - - - (!) 75 % -03/25/19 0242 - 99.6 F (37.6 C) - - - -Pulse OX:SpO2 Readin gs from Last 6 Encounters:03/25/19 97%03/17/19 92%02/19/19 96%02/18/19 92%1 93%12/30/18 96%@LASTSAO2(6)@Physical Exam:AWAKE , NON VERBAL ON BIPAP , RATE = 18 / MT FIO2 = 65% SPO2 = 96%, CONTRACTED PATIENT . General : LETHARGIC , cooperative, MODERATE RESPIRATORY distress,appears stated ag e. Head: Normocephalic, without obvious abnormality, atraumatic. Eyes: Conjunctivae/corneas clear. PERRL, EOMs intact. Nose: N dada normal. No drainage or sinus tenderness Throat: Lips, mucosa, and tongu e normal Neck: Supple, symmetrical, trachea midline, no adenopa thy,thyroid: no enlargement/tenderness/nodules, no carot id bruit and no JVD. Lungs: BREATH SOUNDS DECREASED L L L> R L L WIT H DULLNESSL L L > R L L , RALES + LT > RT , AIR EXCHANGE IS DECREASED toauscult ation bilaterally. Chest Wall: No tenderness or deformity. Heart : Regular rate and rhythm, S1, S2 normal, E S GR 1/ 6murmur, click, rub or NO gallop. Abdomen: P E G + Soft, non-tender. Bowel sounds normal. No mass es, No organomegaly. Extremities: CONTRACTED Extremities normal, atraumati c, no cyanosis or edema. Pulses: 4+ bilaterally Skin: Skin col or, texture, turgor normal. No rashes or lesions. Neurologic: NON VERBAL CNI I-XII intact. No focal motor or sensory deficit.Current Facility-Administered Me dicationsMedication Dose Route Frequency sodium chloride (NS) flush 5-10 mL 5-10 mL IntraVENous PRN acetaminophen (TYLENOL) solution 650 mg 650 mg Per G Tube Q4H P RN cinacalcet (SENSIPAR) tablet 60 mg 60 mg Oral DAILY heparin (porcine) injection 5,000 Units 5,000 Units SubCUTAneous Q12H lamoTRIgine (LaMICtal) tablet 50 mg 50 mg Per G Tube BID valproic acid (as sodium salt) (DEPAKENE) 250 mg/5 mL (5 mL) oral solution 750mg 750 mg Per G Tube Q12H methylPREDNISolone (PF) (SOLU-MEDROL) in jection 40 mg 40 mg IntraVENous Q6H 0.9% sodium chloride infusion 70 mL/hr Intra VENous CONTINUOUS multivit-folic acid-herbal 275 (WELLESSE PLUS) oral liquid 30 mL 3 0 mL Per GTube DAILY ALPRAZolam (XANAX) tablet 0.25 mg 0.25 mg Per G Tube QPM cefepime (MAXIPIME) 1 g in 0.9% sodium chloride (MBP/ADV) 50 mL MBP 1 gIntraVE Nous Q8H acetylcysteine (MUCOMYST) 100 mg/mL (10 %) nebulizer solution 400 mg 4 mLIn halation Q6H RT albuterol-ipratropium (DUO-NEB) 2.5 MG-0.5 MG/3 ML 3 mL Nebul ization Q6H RT vancomycin (VANCOCIN) 1,000 mg in 0.9% sodium chloride 250 mL IVPB 1,000 mgIntraVENous Q12H budesonide (PULMICORT) 500 mcg/2 ml nebulizer suspe nsion 500 mcg NebulizationBID RTIntake and Output:Last three shifts: 03/23 1901 - 03/25 0700In: 1999 [I.V.:1999]Out: -Lab Results:Recent Results (from the past 24 hour(s))CULTURE, BLOOD Collection Time: 03/25/19 2:55 AMResult Value Ref Range Special Requests: NO SPECIAL REQUESTS Culture result: NO GROWTH AFTER 11 HOURSCULTURE, BLOOD Collection Time: 03/25/19 3:10 AMResult Value Ref Range Special Request s: NO SPECIAL REQUESTS Culture result: NO GROWTH AFTER 11 HOURSLACTIC ACID Collect ion Time: 03/25/19 3:10 AMResult Value Ref Range Lactic acid 2.0 0.4 - 2.0 MMOL/LCB C WITH AUTOMATED DIFF Collection Time: 03/25/19 3:10 AMResult Value Ref Range WBC 18.8 (H) 4.8 - 10.6 K/uL RBC 4.30 (L) 4.70 - 6.00 M/uL HGB 13.5 (L) 14.0 - 18. 0 g/dL HCT 42.0 42.0 - 52.0 % MCV 97.7 (H) 81.0 - 94.0 FL MCH 31.4 27.0 - 35.0 PG M CHC 32.1 30.7 - 37.3 g/dL RDW 16.1 (H) 11.5 - 14.0 % PLATELET 365 130 - 400 K/uL MPV 9 .5 9.2 - 11.8 FL NEUTROPHILS 80 (H) 48.0 - 72.0 % LYMPHOCYTES 13 (L) 18.0 - 40.0 % MONOCYTES 7 2.0 - 12.0 % EOSINOPHILS 0 0.0 - 7.0 % BASOPHILS 0 0.0 - 3.0 % ABS. NEUTR OPHILS 15.0 (H) 1.5 - 6.6 K/UL ABS. LYMPHOCYTES 2.5 1.5 - 3.5 K/UL ABS. MONO CYTES 1.3 (H) 0.0 - 1.0 K/UL ABS. EOSINOPHILS 0.0 0.0 - 0.7 K/UL ABS. BASOPHILS 0.0 0. 0 - 0.1 K/UL DF AUTOMATED IMMATURE GRANULOCYTES 0 0.0 - 2.0 %METABOLIC PANE L, COMPREHENSIVE Collection Time: 03/25/19 3:10 AMResult Value Ref Range Sodium 135 (L) 136 - 145 mmol/L Potassium 3.5 3.5 - 5.1 mmol/L Chloride 93 (L) 98 - 107 mmol/L C O2 39 (H) 21 - 32 mmol/L Anion gap 6 (L) 10 - 20 mmol/L Glucose 95 74 - 106 mg/dL BUN 11 7 - 18 mg/dL Creatinine 0.48 (L) 0.70 - 1.30 mg/dL GFR est AA >60 >60 ml/min/1.7 3m2 GFR est non-AA >60 >60 ml/min/1.73m2 Calcium 9.6 8.5 - 10.1 mg/dL Bilirubin, total 0.3 0.2 - 1.0 mg/dL ALT (SGPT) 15 13 - 61 U/L AST (SGOT) 11 (L) 15 - 37 U/L Alk . phosphatase 83 45 - 117 U/L Protein, total 7.1 6.4 - 8.2 g/dL Albumin 2.9 (L) 3.5 - 4.7 g/dL Globulin 4.2 1.7 - 4.7 g/dL A-G Ratio 0.7 0.7 - 2.8OSMOLALITY, SERUM/JOCELYN SMA Collection Time: 03/25/19 3:10 AMResult Value Ref Range Osmolality, serum/plasma 285 280 - 300 MOSM/kg H2OTSH 3RD GENERATION Collection Time: 03/25/19 3:10 AMResult Value Ref Range TSH 2.640 0.360 - 3.740 uIU/mLURIC ACID Collection Time: 9 3:10 AMResult Value Ref Range Uric acid 3.8 3.5 - 7.2 mg/dLEKG, 12 LEAD, INITIAL Collection Time: 03/25/19 3:23 AMResult Value Ref Range Ventricular Rate 98 BPM Atrial Rate 98 BPM P-R Interval 135 ms QRS Duration 90 ms Q-T Interval 360 ms QTC C alculation (Bezet) 460 ms Calculated P Cambridge 50 degrees Calculated R Cambridge -40 degrees Calculated T [place] 68 degrees Diagnosis Sinus rhythmLeft axis deviationProbable lateral infarct, oldBLOOD GAS, ARTERIAL Collection Time: 03/25/19 4:30 AMResult Value Ref Range pH 7.43 7.35 - 7.45 PCO2 53 (H) 32 - 48 mmHg PO2 86 83 - 108 mmHg CO 2, TOTAL 37 (H) 19 - 24 mmol/L BICARBONATE 35 (H) 21 - 28 mmol/L O2 SAT 99 (H) 94 - 98 % BASE EXCESS 9.1 (H) 0 - 3 mmol/L SITE RIGHT RADIAL MIRANDA'S TEST POSITIVE DEVIC E BIPAP FIO2 100.0 % MODE BIPAP PEEP/CPAP 7 PRESSURE SUPPORT 14 RATE 15 Performed by [id number] W/ RFLX MICROSCOPIC Collection Time: 03/25/19 4:50 AMResult Value Ref Range Color YELLOW YEL Appearance CLEAR CLEAR Specific gravity 1.020 1.003 - 1.030 pH (UA) 8.5 (H) 4.6 - 8.0 Protein NEGATIVE NEG mg/dL Glucose NEGATIVE NE G mg/dL Ketone NEGATIVE NEG mg/dL Bilirubin NEGATIVE NEG Blood NEGATIVE NEG Urobil inogen 1.0 0.2 - 1.0 EU/dL Nitrites NEGATIVE NEG Leukocyte Esterase NEGATIVE NEGLACT IC ACID Collection Time: 03/25/19 7:10 AMResult Value Ref Range Lactic acid 1.9 0.4 - 2.0 MMOL/LCORTISOL, AM Collection Time: 03/25/19 7:10 AMResult Value Ref Range Cortisol, a.m. 24.7 (H) 4.3 - 22.4 ug/dLABG:Recent Labs 430PH 7.4 3PCO2 53*PO2 86HCO3 35*FIO2 100.0Recent Glucose Results:Lab ResultsComponent Seema ue Date/Time GLU 95 03/25/2019 03:10 AMCULTURES:All Micro Results Procedure C omponent Value Units Date/Time CULTURE, BLOOD [[id number]] Collected: 03/25/19 0310 Or bassem Status: Completed Specimen: Blood Updated: 03/25/191516 Special Request s: NO SPECIAL REQUESTS Culture result: NO GROWTH AFTER 11 HOURS CULTURE, BLOOD [[id number]] Collected: 03/25/19 0255 Order Status: Completed Specimen: Blood Upda mikel: 03/25/191516 Special Requests: NO SPECIAL REQUESTS Culture result: NO HAIDER WTH AFTER 11 HOURSImages:@IMAGESENCORD@CT Results (most recent):Results from Hospi krystian Encounter encounter on 03/11/19CT CHEST WO CONT Narrative History:Respiratory di fficulty.FINDINGS:CT scanning of the chest was performed helically from lung apices to the upperabdomen without intravenous contrast dural. Sagittal and coronal rec onstructedimages are submitted. Scanning was performed utilizing dose lowering techni quesand is compared to the prior study of 01/15/2019.Evaluation of thoracic vascula r structures is limited without intravenouscontrast material. There is, however, no definite CT evidence of dissection orfocal aneurysmal dilatation . Some peripheral calcification is noted. There is noevidence of any pathologicall y enlarged lymph node within the visualizedportions of the mediastinum or axillae. Some nonpathologically enlarged lymphnodes are seen.Again noted is eleva tion of the left hemidiaphragm. A left small pleuraleffusion is noted as well as atel ectatic change at the left lung base.Patchy opacity at the right lung base is compat ible with a right basilarinfiltrate. There is some patchy opacity within the right mid dle lobe as well.The right basal infiltrate is greater in size than that seen previo usly. Thepleural effusion is smaller. The right middle lobe infiltrate is similar. Limited evaluation of upper abdominal structures reveals a tube within thestom ach directed toward the duodenum.Diffuse hypertrophic degenerative changes are no mikel of the thoracic spine.There is again noted to be shift of mediastinal structu res to the right. Impression IMPRESSION:Worsening right lower lobe in filtrate. Slight worsening of the right middle lobeinfiltrate. 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 ACUTE HYPERCAPNIC AND HYPOXIC RESPIRATORY FAIL URE2. SEVER COPD3. ASPIRATION PNEUMONIA4. SMALL ATELECTASIS L L L5. CLOGGED P E G6. PARKINSONISM7. MENTAL RETARDATIONPlan:1. CONT BIPAP SUPPORT I P A P/ E P A P = 12/7 CM ,,RATE = 18 , FIO2 65%, TITE RATE DOWN FIO2 65 % KEEP SPO2 > 92%2. CULTURE BLOOD , SPUTUM , URINE3. AGREE WITH I V CEFEPIME AND VANCOMYCIN4. I V SOLUMEDROL5. DUO NEB QID6. I V FLUIDS7. CHEST PT8. G I TO UNCLOG P E GCode Status: FULLThe patient has elected MOTHER to be the surrogat e decision makerDVT Prophylaxis: LOVENOXGI Prophylaxis: PROTONIXBaseline:TOTAL TIME : 75 MIN Comments>50% of visit spent in counseling and coordination of careCriti inez Care Provided 75 Minutes non procedure based [facility] jose Monae MD F.C.C.P. Name Value Range Interpretation Code Description Data Harriett rce(s) Supporting Document(s ) ID Date Data Source [id number] 03/25/2019 04:15:49 PM [facility] GI ConsultReferring Physician:Consult Da te: 03/25/2019NAME: Evelio JohnsoninDOB: 1950MRN: [id number]:Reason for Consult: clogged J tubeHistory of Present Illness: Evelio Carlin is a 68 y.o. male who is seen inconsultation for clogged J tube. Patient has been having issues wit h clogged Jtubes. 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 No pertinent family history.Social HistoryTobacco Use Smoking status: Nilo uribe Smoker Smokeless tobacco: Never UsedSubstance Use Topics Alcohol use: N Violet Known AllergiesCurrent Facility-Administered MedicationsMedicat ion Dose Route Frequency sodium chloride (NS) flush 5-10 mL 5-10 mL IntraVENous PRN acetaminophen (TYLENOL) solution 650 mg 650 mg Per G Tube Q4H PRN budesonide (P ULMICORT) 500 mcg/2 ml nebulizer suspension 500 mcg NebulizationBID cinacalcet (SEN SIPAR) tablet 60 mg 60 mg Oral DAILY heparin (porcine) injection 5,000 Units 5,000 Units SubCUTAneous Q12H lamoTRIgine (LaMICtal) tablet 50 mg 50 mg Per G Tub e BID valproic acid (as sodium salt) (DEPAKENE) 250 mg/5 mL (5 mL) oral solut ion 750mg 750 mg Per G Tube Q12H methylPREDNISolone (PF) (SOLU-MEDROL) in jection 40 mg 40 mg IntraVENous Q6H 0.9% sodium chloride infusion 70 mL/hr Intra VENous CONTINUOUS multivit-folic acid-herbal 275 (WELLESSE PLUS) oral liquid 30 mL 3 0 mL Per GTube DAILY ALPRAZolam (XANAX) tablet 0.25 mg 0.25 mg Per G Tube QPM cefepime (MAXIPIME) 1 g in 0.9% sodium chloride (MBP/ADV) 50 mL MBP 1 gIntraVE Nous Q8H acetylcysteine (MUCOMYST) 100 mg/mL (10 %) nebulizer solution 400 mg 4 mLIn halation Q6H RT albuterol-ipratropium (DUO-NEB) 2.5 MG-0.5 MG/3 ML 3 mL Nebul ization Q6H RT vancomycin (VANCOCIN) 1,000 mg in 0.9% sodium chloride 250 mL IVPB 1,000 mgIntraVENous [id number] of Systems:Unable to obtainObjective:Physic al Exam:Visit VitalsBP (!) 114/94 (BP 1 Location: Left arm, BP Patient Position: At rest)Pulse 73Temp 97.5 F (36.4 C)Resp 18Wt 54.4 kg (120 lb)SpO2 100%BMI 21.95 kg/m Constitutional: This is a 68 y.o. male who is unresponsiveSkin: No rashes, wendy sveta, masses, or spider angioma.HEENT: Sclerae non-icteric. Lids and conjunctiv a normal. On bipapCardiovascular: Regular rate and rhythm. No murmurs, gallops, or rubs. NormalS1,S2.Respiratory: Coarse BS b/lGI: Abdomen non distended, soft, and non tender. PEG site - no erythema ordischargeMusculoskeletal: No pitting edema of the lower legs.Laboratory:Lab ResultsComponent Value Date/Time WBC 18. 8 (H) 03/25/2019 03:10 AM HGB 13.5 (L) 03/25/2019 03:10 AM HCT 42.0 03/25/2019 03:10 AM PLATELET 365 03/25/2019 03:10 AM MCV 97.7 (H) 03/25/2019 03:10 AMLab ResultsC omponent Value Date/Time Hemoglobin A1c 4.4 02/09/2019 04:45 AM LDL, calculated 65.6 03/12/2019 06:50 AM Creatinine 0.48 (L) 03/25/2019 03:10 AMLab ResultsComponent Value Date/Time Cholesterol, total 156 03/12/2019 06:50 AM HDL Cholesterol 71 1 05/12/2018 06:50 AM LDL, calculated 65.6 03/12/2019 06:50 AM Triglyceride 97 02/14 06:50 AM CHOL/HDL Ratio 2.2 03/12/2019 06:50 AMLab ResultsComponent Value Date/ Time ALT (SGPT) 15 03/25/2019 03:10 AM AST (SGOT) 11 (L) 03/25/2019 03:10 AM Alk. p hosphatase 83 03/25/2019 03:10 AM Bilirubin, direct <0.1 02/09/2019 04:45 AM Bilirubi n, total 0.3 03/25/2019 03:10 AMLab ResultsComponent Value Date/Time INR 1.1 02/15/2019 04:35 AM INR 1.0 01/10/2019 07:40 AM INR 1.1 12/19/2018 03:28 AM Prothromb in time 11.0 02/15/2019 04:35 AM Prothrombin time 10.3 01/10/2019 07:40 AM Prothrombi n time 11.4 (H) 12/19/2018 03:28 AMLab ResultsComponent Value Date/Time Creatin ine 0.48 (L) 03/25/2019 03:10 AM BUN 11 03/25/2019 03:10 AM Sodium 135 (L) 03/25 03:10 AM Potassium 3.5 03/25/2019 03:10 AM Chloride 93 (L) 03/25/2019 03:10 AM C O2 39 (H) 03/25/2019 03:10 AM CO2, TOTAL 37 (H) 03/25/2019 04:30 AMNo results found for: PSA2, PSAR1, PSA1, PSAR2, PSA3, [id number] ResultsComponent Value Date/Time TSH 2.6 40 03/25/2019 03:10 AM24 hr LAB DATA REVIEWED:Recent Results (from the past 2 4 hour(s))CULTURE, BLOOD Collection Time: 03/25/19 2:55 AMResult Value Ref Range Special Requests: NO SPECIAL REQUESTS Culture result: NO GROWTH AFTER 11 HOURSCULTURE, BLOOD Collection Time: 03/25/19 3:10 AMResult Value Ref Range Special Request s: NO SPECIAL REQUESTS Culture result: NO GROWTH AFTER 11 HOURSLACTIC ACID Collect ion Time: 03/25/19 3:10 AMResult Value Ref Range Lactic acid 2.0 0.4 - 2.0 MMOL/LCB C WITH AUTOMATED DIFF Collection Time: 03/25/19 3:10 AMResult Value Ref Range WBC 18.8 (H) 4.8 - 10.6 K/uL RBC 4.30 (L) 4.70 - 6.00 M/uL HGB 13.5 (L) 14.0 - 18. 0 g/dL HCT 42.0 42.0 - 52.0 % MCV 97.7 (H) 81.0 - 94.0 FL MCH 31.4 27.0 - 35.0 PG M CHC 32.1 30.7 - 37.3 g/dL RDW 16.1 (H) 11.5 - 14.0 % PLATELET 365 130 - 400 K/uL MPV 9 .5 9.2 - 11.8 FL NEUTROPHILS 80 (H) 48.0 - 72.0 % LYMPHOCYTES 13 (L) 18.0 - 40.0 % MONOCYTES 7 2.0 - 12.0 % EOSINOPHILS 0 0.0 - 7.0 % BASOPHILS 0 0.0 - 3.0 % ABS. NEUTR OPHILS 15.0 (H) 1.5 - 6.6 K/UL ABS. LYMPHOCYTES 2.5 1.5 - 3.5 K/UL ABS. MONO CYTES 1.3 (H) 0.0 - 1.0 K/UL ABS. EOSINOPHILS 0.0 0.0 - 0.7 K/UL ABS. BASOPHILS 0.0 0. 0 - 0.1 K/UL DF AUTOMATED IMMATURE GRANULOCYTES 0 0.0 - 2.0 %METABOLIC PANE L, COMPREHENSIVE Collection Time: 03/25/19 3:10 AMResult Value Ref Range Sodium 135 (L) 136 - 145 mmol/L Potassium 3.5 3.5 - 5.1 mmol/L Chloride 93 (L) 98 - 107 mmol/L C O2 39 (H) 21 - 32 mmol/L Anion gap 6 (L) 10 - 20 mmol/L Glucose 95 74 - 106 mg/dL BUN 11 7 - 18 mg/dL Creatinine 0.48 (L) 0.70 - 1.30 mg/dL GFR est AA >60 >60 ml/min/1.7 3m2 GFR est non-AA >60 >60 ml/min/1.73m2 Calcium 9.6 8.5 - 10.1 mg/dL Bilirubin, total 0.3 0.2 - 1.0 mg/dL ALT (SGPT) 15 13 - 61 U/L AST (SGOT) 11 (L) 15 - 37 U/L Alk . phosphatase 83 45 - 117 U/L Protein, total 7.1 6.4 - 8.2 g/dL Albumin 2.9 (L) 3.5 - 4.7 g/dL Globulin 4.2 1.7 - 4.7 g/dL A-G Ratio 0.7 0.7 - 2.8OSMOLALITY, SERUM/JOCELYN SMA Collection Time: 03/25/19 3:10 AMResult Value Ref Range Osmolality, serum/plasma 285 280 - 300 MOSM/kg H2OTSH 3RD GENERATION Collection Time: 03/25/19 3:10 AMResult Value Ref Range TSH 2.640 0.360 - 3.740 uIU/mLURIC ACID Collection Time: 9 3:10 AMResult Value Ref Range Uric acid 3.8 3.5 - 7.2 mg/dLEKG, 12 LEAD, INITIAL Collection Time: 03/25/19 3:23 AMResult Value Ref Range Ventricular Rate 98 BPM Atrial Rate 98 BPM P-R Interval 135 ms QRS Duration 90 ms Q-T Interval 360 ms QTC C alculation (Bezet) 460 ms Calculated P [place] 50 degrees Calculated R [place] -40 degrees Calculated T [place] 68 degrees Diagnosis Sinus rhythmLeft axis deviationProbable lateral infarct, oldBLOOD GAS, ARTERIAL Collection Time: 03/25/19 4:30 AMResult Value Ref Range pH 7.43 7.35 - 7.45 PCO2 53 (H) 32 - 48 mmHg PO2 86 83 - 108 mmHg CO 2, TOTAL 37 (H) 19 - 24 mmol/L BICARBONATE 35 (H) 21 - 28 mmol/L O2 SAT 99 (H) 94 - 98 % BASE EXCESS 9.1 (H) 0 - 3 mmol/L SITE RIGHT RADIAL MIRANDA'S TEST POSITIVE DEVIC E BIPAP FIO2 100.0 % MODE BIPAP PEEP/CPAP 7 PRESSURE SUPPORT 14 RATE 15 Performed by [id number] W/ RFLX MICROSCOPIC Collection Time: 03/25/19 4:50 AMResult Value Ref Range Color YELLOW YEL Appearance CLEAR CLEAR Specific gravity 1.020 1.003 - 1.030 pH (UA) 8.5 (H) 4.6 - 8.0 Protein NEGATIVE NEG mg/dL Glucose NEGATIVE NE G mg/dL Ketone NEGATIVE NEG mg/dL Bilirubin NEGATIVE NEG Blood NEGATIVE NEG Urobil inogen 1.0 0.2 - 1.0 EU/dL Nitrites NEGATIVE NEG Leukocyte Esterase NEGATIVE NEGLACT IC ACID Collection Time: 03/25/19 7:10 AMResult Value Ref Range Lactic acid 1.9 0.4 - 2.0 MMOL/LCORTISOL, AM Collection Time: 03/25/19 7:10 AMResult Value Ref Range Cortisol, a.m. 24.7 (H) 4.3 - 22.4 ug/dLIMAGING RESULTS:CXRIMPRESSION: Poss ible left lower lobe infiltrate. Poor inspiratory effort.Assessment:1. Clogged J tube2. Aspiration PNAPlan:1. Will plan for J tube replacement tomorrow if respirato ry status improves2. Continue abx3. NPOPatient Active Problem ListDiagnosis Code 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 COPD (chronic obstructive pulmonary dise ase) ([facility]) J44.9 Acute respiratory distress R06.03 Pneumonia J18.9 COPD exacerbati on ([facility]) J44.1 Sepsis due to undetermined organism ([facility]) A41.9 Generalized anxiet y disorder F41.1 Acute respiratory failure with hypoxia ([facility]) J96.01 Pneumonia inv olving right lung J18.9 Hyponatremia E87.1 SOB (shortness of breath) R06.02 Pressu re injury of right heel, stage [address] ([facility]) L89.612 Leg wound, right, initial encou nter S81.801A Acute hypoxemic respiratory failure ([facility]) J96.01The patient was seen in consultation for Dr Hills. Thank you for requestingour consultation on this p atient. Further recommendations pending the above.We will follow with you as needed. Marly Amaya MD Name Value Range Interpretation Code Description Data Harriett rce(s) Supporting Document(s ) ID Date Data Source [id number] 03/25/2019 03:44:51 PM [facility] Infectious Disease ConsultToday's Date: 03/25/2019Admit Date: 03/25/2019Subjective:Date of Consultatio n: March 25, 2019Referring Physician: ReinierLouiefelix is a 68 y.o. male who is being seen for possiblesepsis/pneumonia.Patient with hi story of MR,COPD,recurrent aspirationpneumonia,dysphagia s/p peg pl acement was transferred from the long-term forrespiratory distress,low oxygen satur ation of 77% on 4 L nasal canula.Patient isnon verbal,lethargic on BiPAP,unable t o provide any history.History obtainedfrom chart review.Patient Was afebrile on ar rival to the ER with elevated wbcof 18,800.Patient Active Problem ListDiagno sis Code 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 COPD (chronic obstructive pulmonary dise ase) ([facility]) J44.9 Acute respiratory distress R06.03 Pneumonia J18.9 COPD exacerbati on ([facility]) J44.1 Sepsis due to undetermined organism ([facility]) A41.9 Generalized anxiet y disorder F41.1 Acute respiratory failure with hypoxia ([facility]) J96.01 Pneumonia inv olving right lung J18.9 Hyponatremia E87.1 SOB (shortness of breath) R06.02 Pressu re injury of right heel, stage [address] ([facility]) L89.612 Leg wound, right, initial encou nter S81.801A Acute hypoxemic respiratory failure ([facility]) J96.01Past Medical History :Diagnosis Date Chronic obstructive pulmonary disease (HCC) Diaphragmatic h ernia without obstruction and without gangrene GERD (gastroesophageal reflux disease) Hyperparathyroidism ([facility]) Mental retardation Parkinsonism due to drug ([facility]) Pneumonia Psychiatric disorder schizophrenia Pulmonary emboli ([facility]) S chizophrenia ([facility])History reviewed. No pertinent family history.Social HistoryT obacco Use Smoking status: Never Smoker Smokeless tobacco: Never UsedSubstance U se Topics Alcohol use: NoPast Surgical History:Procedure Laterality Date HX GA STROSTOMY PEG- replaced 11/2018Prior to Admission medicationsMedication Sig Star t Date End Date Taking? Authorizing Providerheparin sodium,porcine (HEPARIN, PORCINE,) 5,000 unit/mL injection 1 mL bySubCUTAneous route every twelve (12) h ours every twelve (12) hours. 03/17/19Mili Hills DOmultivitamin (MULTI-DELYN, WE LLESSE) liqd 5 mL by Per G Tube route daily.03/17/19 Mili Hills DOaceta minophen (TYLENOL) 32MG/ML soln solution Take 20.3 mL by mouth every four(4) hours as needed for Pain or Fever. 03/17/19 Mili Hills DOvalproic acid, as sodium salt , (DEPAKENE) 250 mg/5 mL (5 mL) soln oral cmramacp087 mg by Per G Tube route every twelve (12) hours. Provider, Edieacetylcysteine (MUCOMYST) 100 mg/mL (10 %) nebulizer solution Take 4 mL byinhalation two (2) times a day. Pro vider, Historicalclorazepate (TRANXENE) 3.75 mg tablet 1 Tab by Per G Tube route margo carranzay. MaxDaily Amount: 3.75 mg. 12/30/18 Mili Hills DOcinacalcet (SENSIPAR) 30 mg tablet Take 2 Tabs by mouth daily.Patient taking differently: 30 mg daily. Via G tube 12/30/18 Mili HillsDOlamoTRIgine (LAMICTAL) 25 mg t ablet 2 Tabs by Per G Tube route two (2) times aday. 12/30/18 Mili Hills D Oalbuterol-ipratropium (DUO-NEB) 2.5 mg-0.5 mg/3 ml nebu 3 mL by Nebulizationroute e very six (6) hours. Every 6 hours while awakePatient taking differently: 3 mL by Nebulization route every four (4) hours asneeded. Every 6 hours while awake 12/30 Mili Hills DObudesonide (PULMICORT) 0.5 mg/2 mL nbsp 2 mL by Neb ulization route two (2) timesa day. 12/30/18 Mili Hills DONo Known AllergiesRev iew of SystemsPatient is unable to provideObjective:Visit VitalsBP 132/68 ( BP 1 Location: Right arm, BP Patient Position: At rest;Supine)Pulse 86Temp 99 .2 F (37.3 C)Resp 28Wt 54.4 kg (120 lb)SpO2 100%BMI 21.95 kg/m Temp (24hrs), Av. 5 F (37.5 C), Min:99.2 F (37.3 C), Max:99.6 F (37.6 C)Lines: Peripheral I V:Physical Exam:General: Unresponsive on BiPAP no distress, appears stated age.Ey es: Conjunctivae/corneas clear. PERRLMouth/Throat: Dry oral mucosaNeck: Supple, symmetrical, trachea midline, no adenopathyLungs: Bilateral breath soun ds with basal crackles..Heart: Regular rate and rhythm, S1, S2 normal, no murmurAbdo men: Soft, non-tender. Bowel sounds normal. No masses, Noorganomegaly.peg+Back: N o CVA tenderness.Extremities: No cyanosis,chronic lymphedemaPulses: 2+ an d symmetric all extremities.Skin: Skin color, texture, turgor normal. No rashes or les ionsLymph nodes: Cervical, supraclavicular, and axillary nodes normal.Neurologic: Un responsiveData Review:Labs:Recent Results (from the past 24 hour(s))CULTURE, BLOOD Collection Time: 03/25/19 2:55 AMResult Value Ref Range Special Requests: NO SPE CIAL REQUESTS Culture result: NO GROWTH AFTER 11 HOURSCULTURE, BLOOD Collection Time: 03/25/19 3:10 AMResult Value Ref Range Special Requests: NO SPECIAL REQUESTS Cu lture result: NO GROWTH AFTER 11 HOURSLACTIC ACID Collection Time: 03/25/19 3:10 AMR esult Value Ref Range Lactic acid 2.0 0.4 - 2.0 MMOL/LCBC WITH AUTOMATED DIFF Collec tion Time: 03/25/19 3:10 AMResult Value Ref Range WBC 18.8 (H) 4.8 - 10.6 K/uL RBC 4 .30 (L) 4.70 - 6.00 M/uL HGB 13.5 (L) 14.0 - 18.0 g/dL HCT 42.0 42.0 - 52.0 % MCV 97. 7 (H) 81.0 - 94.0 FL MCH 31.4 27.0 - 35.0 PG MCHC 32.1 30.7 - 37.3 g/dL RDW 16.1 (H) 11.5 - 14.0 % PLATELET 365 130 - 400 K/uL MPV 9.5 9.2 - 11.8 FL NEUTROPHILS 80 (H) 48. 0 - 72.0 % LYMPHOCYTES 13 (L) 18.0 - 40.0 % MONOCYTES 7 2.0 - 12.0 % EOSINOPHILS 0 0 .0 - 7.0 % BASOPHILS 0 0.0 - 3.0 % ABS. NEUTROPHILS 15.0 (H) 1.5 - 6.6 K/UL ABS. LYMPHOCYTES 2.5 1.5 - 3.5 K/UL ABS. MONOCYTES 1.3 (H) 0.0 - 1.0 K/UL ABS. EO SINOPHILS 0.0 0.0 - 0.7 K/UL ABS. BASOPHILS 0.0 0.0 - 0.1 K/UL DF AUTOMATED IMMATURE GRANULOCYTES 0 0.0 - 2.0 %METABOLIC PANEL, COMPREHENSIVE Collection Time: 03/25/19 3:10 AMResult Value Ref Range Sodium 135 (L) 136 - 145 mmol/L Potassium 3.5 3.5 - 5.1 mmol/L Chloride 93 (L) 98 - 107 mmol/L CO2 39 (H) 21 - 32 mmol/L Anion gap 6 (L) 10 - 20 mmol/L Glucose 95 74 - 106 mg/dL BUN 11 7 - 18 mg/dL Creatinine 0.48 (L) 0.70 - 1.30 mg/dL GFR est AA >60 >60 ml/min/1.73m2 GFR est non-AA >60 >60 ml/min/1.73m2 Inez cium 9.6 8.5 - 10.1 mg/dL Bilirubin, total 0.3 0.2 - 1.0 mg/dL ALT (SGPT) 15 13 - 6 1 U/L AST (SGOT) 11 (L) 15 - 37 U/L Alk. phosphatase 83 45 - 117 U/L Protein, tot al 7.1 6.4 - 8.2 g/dL Albumin 2.9 (L) 3.5 - 4.7 g/dL Globulin 4.2 1.7 - 4.7 g/dL A-G Ratio 0.7 0.7 - 2.8OSMOLALITY, SERUM/PLASMA Collection Time: 03/25/19 3:10 AMResult Value Ref Range Osmolality, serum/plasma 285 280 - 300 MOSM/kg H2OTSH 3RD GENERATION Collection Time: 03/25/19 3:10 AMResult Value Ref Range TSH 2.640 0.360 - 3.740 uIU/mLURIC ACID Collection Time: 03/25/19 3:10 AMResult Value Ref Range Uric acid 3.8 3.5 - 7.2 mg/dLEKG, 12 LEAD, INITIAL Collection Time: 03/25/19 3:23 AMResult Value Ref Range Ventricular Rate 98 BPM Atrial Rate 98 BPM P-R Interval 135 ms Q RS Duration 90 ms Q-T Interval 360 ms QTC Calculation (Bezet) 460 ms Calculated P [place] 50 degrees Calculated R [place] -40 degrees Calculated T [place] 68 degrees Diagnosis Sinus rhythmLeft axis deviationProbable lateral infarct, oldBLOOD GAS, ARTERIAL Collection Time: 03/25/19 4:30 AMResult Value Ref Range pH 7.43 7.35 - 7.45 PCO2 53 (H) 32 - 48 mmHg PO2 86 83 - 108 mmHg CO2, TOTAL 37 (H) 19 - 24 mmol/L BICARBO YARELI 35 (H) 21 - 28 mmol/L O2 SAT 99 (H) 94 - 98 % BASE EXCESS 9.1 (H) 0 - 3 mmol/L SI TE RIGHT RADIAL MIRANDA'S TEST POSITIVE DEVICE BIPAP FIO2 100.0 % MODE BIPAP PEEP/CPAP 7 PRESSURE SUPPORT 14 RATE 15 Performed by [id number] W/ RFLX MICROSCOPIC Manuel ection Time: 03/25/19 4:50 AMResult Value Ref Range Color YELLOW YEL Appearance CL EAR CLEAR Specific gravity 1.020 1.003 - 1.030 pH (UA) 8.5 (H) 4.6 - 8.0 Protein NEGATIVE NEG mg/dL Glucose NEGATIVE NEG mg/dL Ketone NEGATIVE NEG mg/dL Bilirub in NEGATIVE NEG Blood NEGATIVE NEG Urobilinogen 1.0 0.2 - 1.0 EU/dL Nitrite s NEGATIVE NEG Leukocyte Esterase NEGATIVE NEGLACTIC ACID Collection Time: 03/25/19 7:10 AMResult Value Ref Range Lactic acid 1.9 0.4 - 2.0 MMOL/LCORTISOL, AM Collect ion Time: 03/25/19 7:10 AMResult Value Ref Range Cortisol, a.m. 24.7 (H) 4.3 - 22.4 ug/dLMicrobiology:Cultures:Lab ResultsComponent Value Date/Time Culture result: NO GROWTH AFTER 11 HOURS 03/25/2019 03:10 AM Culture result: NO GROWTH AFTER 11 HOURS 03/25/2019 02:55 AM Culture result: NO GROWTH 5 DAYS 03/11/2019 04:14 AM Cul ture result: NO GROWTH 5 DAYS 03/11/2019 04:14 AMImaging:Xr Chest Sngl VResult Da te: 02/12/2019CHEST one view HISTORY: Followup lung pathology. Comparison is m stephanie to previousstudies. Accounting for differences in technique there has been no significantchange of right basal infiltrate/effusion. There is a poor ins piratory effortand patient rotation towards the right. No other interval change is n oted.IMPRESSION: No significant change.Xr Chest Sngl VResult Date: 02/09/2019AP po rtable film of the chest clinical indication pneumonia Study is compared toprevious e xamination of February 08, 2019. Again noted is cardiac enlargement curtis limited insp iration. There has been partial clearing of right mid lungdensities. Again noted is an old fracture of the left clavicleIMPRESSION: Partial clearing rig ht lung densities otherwise little changeCt Chest Wo ContResult Date: 03/14/2019Hist ory: Respiratory difficulty. FINDINGS: CT scanning of the chest wasperformed helic ally from lung apices to the upper abdomen without intravenouscontrast dural. Sagit krystian and coronal reconstructed images are submitted.Scanning was performed utilizi ng dose lowering techniques and is compared to theprior study of 01/15/2019. Evaluati on of thoracic vascular structures is limitedwithout intravenous contrast mate rial. There is, however, no definite CTevidence of dissection or focal aneury smal dilatation. Some peripheralcalcification is noted. There is no evidence of any pa thologically enlargedlymph node within the visualized portions of the mediastinum o r axillae. Somenonpathologically enlarged lymph nodes are seen. Again noted is angel vation of theleft hemidiaphragm. A left small pleural effusion is noted as well asatel ectatic change at the left lung base. Patchy opacity at the right lung baseis compati ble with a right basilar infiltrate. There is some patchy opacitywithin the right midd le lobe as well. The right basal infiltrate is greater insize than that seen previou sly. The pleural effusion is smaller. The rightmiddle lobe infiltrate is similar. Limited evaluation of upper abdominalstructures reveals a tube withi n the stomach directed toward the duodenum.Diffuse hypertrophic degenerati ve changes are noted of the thoracic spine. Thereis again noted to be shift of media stinal structures to the right.IMPRESSION: Worsening right lower lobe infiltrate. S light worsening of the rightmiddle lobe infiltrate. Improved left lung.Ct Chest Wo ContResult Date: 01/10/2019CT CHEST WO CONT Clinical data: evaluation of pneumonia r t lung. Priors:12/18/2018 Technique: CT scan of the chest was performed from the thoraci c inletto below the diaphragm without administration of intravenous contrast. Theacquisition data was reviewed in the axial, sagittal and coronal plane.Utiliz ing silver holloware assembler algorithm the examination was performed to optimizeimaging quality by utilizing the lowest possible radiation dose. Findings: Thereis no evidence of p athological lymphadenopathy within the mediastinum, bilateralhilar and bilatera l axillary location. There is a 1.8 cm nodule along the rightwall of the trache a at the level of the thoracic inlet (best seen on image 13ofseries 2) not seen on the prior study. This may be due to a mucous plug. Noadditional endotracheal or endo bronchial lesion is noted.Normal heart size.Coronary artery calcifications note d. Atherosclerotic thoracic aorta withoutaneurysmal dilatation. Evaluation lung windows demonstrates patchy right lowerlobe lung infiltrate. There is asso ciated small right pleural effusion similarto prior. There is also small left pleural effusion with underlying passiveatelectasis slightly decreased from the prior study. No new lung pathology isobserved. Included upper abdominal organs: No significant p athology is observedwithin the visualized upper abdominal organs.IMPRESSION: Small bilateral pleural effusion. Right effusion is similar toprior study. Left effusion slightly decreased in size. Patchy right lungopacities which may be due to pneumo freddy similar to previous examinations. 1.8cm nodule along the right lateral wall of t he trachea at the level of thethoracic inlet not observed on the prior study and can be due to a mucous plug.Ct Chest W Cont F/uResult Date: 01/15/2019CT CHEST W CONT F/U Clinical data: R U L NODULE NEAR TRACHEA / BLOOD VESSEL.Priors: 01/10/2019 . Technique: CT scan of the chest was performed from thethoracic inlet to belo w the diaphragm following administration of intravenouscontrast. The acquisition da ta was reviewed in the axial, sagittal and coronalplane. 100 cc of low osmolar iodi nated contrast-isovue 300 was injectedintravenously for the examinatio n. Utilizing silver holloware assembler algorithm theexamination was performed to optimize imaging quality by utilizing the lowestpossible radiation dose. Findings: There is no evidence of pathologicallymphadenopathy within the m ediastinum, bilateral hilar and bilateral axillarylocation. There is no evidence of a central endobronchial or an endotrachealmass. Previously seen nodule along the right lateral wall of the trachea nolonger visualized. This may have repr esented a mucus lung which has dislodged.Coronary artery calcifications noted. Atherosclerotic thoracic aorta withoutaneurysmal dilatation. Elevated l eft hemidiaphragm. There is a small leftpleural effusion with underlying pas sive atelectatic changes similar to priorstudy. Improved previously seen ri ght lower lobe lung infiltrate. There isassociated small right pleural effusio n similar to prior examination. No newlung pathology is observed. Included upper ab dominal organs: No significantpathology is observed within the visualized upper abd ominal organs.IMPRESSION: 1. Previously seen tracheal nodule is no longer visualized. 2.Small left pleural effusion with underlying passive atelectatic changes s imilarto prior study. Stable elevation of the left hemidiaphragm. 3. Stable small right pleural effusion. Interval improvement in the right lower lobe lunginfiltrate. No new lung findings seen.Xr Chest PortResult Date: 03/25/2019CHEST one vie w HISTORY: Fever. Reflux. Gastrostomy. COMPARISON: 03/11/2019.There is a poor i nspiratory effort which compromises this interpretation. Arepeat study is suggest ed. There is discoid atelectasis and/or left lower lobeinfiltrate.There is no gross e vidence of congestion, other infiltrates,effusions or pneumothorax.IM PRESSION: Possible left lower lobe infiltrate. Poor inspiratory effort.Xr C hest PortResult Date: 03/11/2019CHEST one view HISTORY: Fever. COPD. Reflux. JOSE RISON: 02/12/2019. Anadditional view was obtained. A tubular structure overlies t he stomach andmidabdomen with some gastric distention and elevation of the left hem idiaphragm.There is a poor inspiratory effort which compromises this interpretation. A repeat study is suggested. .There is no gross evidence of congestion,infiltrates, effu sions or pneumothorax. Old rib fractures are noted.IMPRESSION: No evidence of acute c ardiopulmonary disease. Poor inspiratoryeffort. Gastric distention.Xr Chest PortResult Date: 02/08/2019XR CHEST PORT Clinical data: Sepsis Priors: 2018. Findings: The heart sizeis unchanged. Limited inspiration with right basilar l eunice opacities which canbe due to pneumonia. Slightly elevated left hemidiaphragm wit h left basilaratelectasis. No evidence of CHF or large pleural effusion. Patient' s downwardpointing chain obscures the right lung apex. There is an old healed leftc lavicle fracture.IMPRESSION: Right lower lobe parenchymal opacities which can be due t opneumonia. Left basilar atelectatic changes in the juxtadiaphragmatic location.Limit ed inspiration compromises evaluation.Xr Chest PortResult Date: 01/21/2019Mack medina Physician: MONICA GOMEZ Patient Name: EVELIO CARLIN THIS IS AFINAL REPORT FROM [facility] DATE OF SERVICE: 2019-01-21 22:23:43 IMAGES: 1EXAM: XY CH EST PORTABLE HISTORY: Rule out sepsis COMPARISON: Chest x-ray 01/17/19FINDINGS: The patient is rotated and obliquely positioned There is no airspaceconsolida tion. No pneumothorax. Persistent small bilateral pleural effusions Thecardiac s ilhouette appears grossly stable. Limited assessment secondary topositioning and p artially obscured heart borders The bones are demineralized.Limited visualization of t he thoracic spineIMPRESSION: Persistent small bilateral pleural effusions No radiograp hicevidence of acute airspace process THIS DOCUMENT HAS BEEN ELECTRONICALLY SIGNEDJ ohnicole Cole MD 01/21/2019 22:46 EST ReganD. Please call Imaging On [phone] ([phone]) with questions. This report was electronically signedby: Noel Cole MD 01/21/2019 10:48 PMXr Chest PortResult Date: 01/17/2019Portable chest x-ray. PRIOR EXAM: X-ray 01/10/2019 HISTORY: Hypoxia FINDINGS: Theheart is n ormal in size. The mediastinum and pulmonary vessels are unremarkable.There is no acu te infiltrate. The bony structures are intact.IMPRESSION: No acute pulmonary di sease. There is very limited visualization ofthe right lung due to patient position ing.Xr Chest PortResult Date: 01/10/2019XR CHEST PORT Clinical data: Sepsis Priors: 12/29/2018. Findings: Examination iscompromised due to limited inspiration and patient rotation. Heart size isunchanged. Haziness seen at the right lung base can be due to small effusionwith atelectasis/infiltrate. No confluent le ft lung process is seen. Noevidence of CHF.IMPRESSION: Limited study. Suspect right lung base process which may be due tosmall effusion with atelectasis/infilt rate.Xr Chest PortResult Date: 12/29/2018History: leukocytosis Technique : Portable chest x-ray 12/29/2018 11:01 AMComparison: 12/25/2018. FINDINGS: There is a right lower lobe infiltrate oratelectasis which is increased since p rior exam. There is poor inspiration.There is a small left pleural effusion. The exam is rotated. Evaluation of thecardiac silhouette is limited by projection. The visualized osseous structuresappear unremarkable.IMPRESSION: There is a righ t lower lobe infiltrate or atelectasis which isincreased since prior exam.Duplex Uppe r Ext Venous LeftResult Date: 02/10/2019LEFT UPPER EXTREMITY DOPPLER History: DVT. Hi gh-resolution linear sonography ofthe left upper extremity was performed using Berthoud r Doppler Flow and DuplexDoppler Spectral sonography. There is no evidence of a de ep vein thrombosis. Thecephalic vein could not be visualized. The left internal jug ular, subclavian,axillary, brachial and basilic veins are patent and completely compressible.Spontaneous and phasic flow is noted.IMPRESSION: No evidence of deep ve in thrombosis.Duplex Upper Ext Venous LeftResult Date: 12/26/2018DUPLEX UPPER E XT VENOUS LEFT Clinical Data: Arm swelling, DVT suspectedFindings: The visualized se gments of the left upper extremity venous circulationfrom the level of the subclav deondre vein to the brachial vein is compressible andshows normal phasic flow without an i ntraluminal thrombus. In addition, theinternal jugular vein and the basilic vein is also patent. Extremely limitedexam because the patient was unable to geo ate and this was done in a portablefashion.IMPRESSION: No evidence of deep vein thrombosis within the visualized left upperextremity venous circulation. Limited study.Duplex Lower Ext Venous BilatResult Date: 02/10/2019RIGHT and LE FT LOWER EXTREMITY VENOUS DOPPLER STUDIES: Right and Left lowerextremity venous spe ctral Doppler studies are performed using Color Doppler Flowand enhanced Duplex Sp ectral technique. History: Pain and swelling. There is noevidence of deep venous throm bosis present. There is normal compressibility,augmentation and phasici ty from common femoral vein through popliteal vein. .The anterior tibial and peroneal veins are not visualized. The posterior tibialveins of the calf are patent.IMPRE SSION: No evidence of lower extremity deep venous thrombosis bilaterally.Limited ca lf evaluation.Duplex Lower Ext Venous BilatResult Date: 01/11/2019HISTORY: swel ling to lower extremities TECHNIQUE: Bilateral lower extremityvenous Doppler ultrasound Using real time and color-flow Doppler as well asspectral analysis and ultrasound examination was performed of the lowerextremities bilaterally. FINDINGS: On the right side the common femoral vein,superficial femoral vein along its entire course, as well as popliteal vein allappeared widely patent, were easily c ompressible, showed normal spontaneousflow. The calf veins were not visualized due t o body habitus. On the left sidethe common femoral vein, superficial femoral vein a long its entire course, aswell as popliteal vein all appeared widely patent, were ea sily compressible, andshowed normal spontaneous flow. The calf veins were no t visualized due to bodyhabitus.IMPRESSION: Normal bilateral lower extremity venous Doppler ultrasound with noevidence of deep vein thrombosis.Impression: Recurrent a spiration pneumonia. Acute COPD exacerbation Acute hypercapnic respiratory failure. Dysphagia s/p peg placement.. Atelectasis R/o sepsis.Plan: continue IV cefepime and vancomycin. Follow cultures.Signed By: Natasha Dudley MD March 25, 2019 3:31 P M Name Value Range Interpretation Code Description Data Harriett rce(s) Supporting Document(s ) ID Date Data Source [id number] 03/25/2019 12:34:10 PM [facility] Care Management InterventionsPCP Verifie d by CM: YesMode of Transport at Discharge: [facility]Transition of C are Consult (CM Consult): Discharge PlanningMyChart Signup: NoDischarge Dura ble Medical Equipment: NoPhysical Therapy Consult: NoOccupational Therapy Consult: NoSpeech Therapy Consult: NoCurrent Support Network: Nursing Facility([facility])Plan discussed with Pt/Family/Caregiver: YesFreedom of Choice Offered: YesVeteran Resource Information Provided?: RefusedDischarge LocationDischarge Place ment: senior living facility([place])CASE MANAGEMENT PSYCHOSOCIAL ASSE ABPETEEvelio Gabe Admission Date: 03/25/2019MRN: [id number] of : 1950urrent date: 03/25/2019DISCHARGE PLAN: CM met with pt and pt geeta Amaya bedside to discuss dischargeplanning, pt is from [facility] and pt family would like him to return atdischarge. Pt geeta Amaya Pelon thuy and nephew Sandro Perez are the emergencycontacts and will be out of the country for the next few weeks and arerequesting that all call be directed to their answering service [phone]. Ptsmedardo Rincon can also be contacted at [phone]. Per pt geeta Amaya, theywould like pt to be kept in the hospital until th pneumonia is cleared up andwould like a new J-tube inserted once pneumonia is cl eared up, per oJyce cottowill appeal pt's discharge if pt is discharged before pne umonia is cleared up.CM cclinked coleraine.Patient Information:Patients Pref erred Name: EVELIO(PATIENT IS NON-VERBAL)Patient Arrived Via: Stretche rTransferred from another facility: YesInformation Obtained From: Mother(AND FACILITY)Patient Objects to Receiving Blood: Unknown(NON-VERBAL)MRSA Assessment: No K nown History of MRSAAuditory Impairment: NonePrior Hospital AdmissionsName of the Hospital(s): [facility]: Mili Hills DOAdmitting Provider: ELIAN Gonzalez [facility] PRODUCTION HELPER: [place]: [place] / Plan[place] PART A AND B/ Product Type: Med icare /Secondary Payor: @SECINSGROUPNAME@Acute hypoxemic respira tory failure ([facility]) [J96.01]Patient Active Problem ListDiagnosis Code Paraesophage al hiatal hernia K44.9 COPD (chronic obstructive pulmonary disease) ([facility]) J44 .9 Acute respiratory distress R06.03 Pneumonia J18.9 COPD exacerbation ([facility]) J44.1 Sepsis due to undetermined organism ([facility]) A41.9 Generalized anxiety disorde r F41.1 Acute respiratory failure with hypoxia ([facility]) J96.01 Pneumonia involvin g right lung J18.9 Hyponatremia E87.1 SOB (shortness of breath) R06.02 Pressure i njury of right heel, stage [address]) L89.612 Leg wound, right, initial encounter S81. 801A Acute hypoxemic respiratory failure (HCC) J96.01Social HistorySubstance and Sexual ActivityAlcohol Use NoNumber of stairs into patient home:DME:Cohabitants:Abuse Screen:Physical Abuse/Neglect: Patient unable to answerSexual Abuse: Patient unable to answerVerbal Abuse: Patient unable to answerOther Abuse/Issues: Patient unable to answerINSURANCE INFORMATION: (Verification)Primary Notes: MedicareSec ondary Notes: Medicaid [place] Notes:No-Fault Notes:SSD Notes:Un-Insure d Notes:Long-Term Care Insurance If Applicable Notes:Current Functioning:Frantz flannery barriers: Notes:Understanding nature/impact of illness: Notes:Ability to participate in plan: Notes:Realistic Problem solving and planning: Notes:Cruz dunn coping skills: Notes:Sabianist/Cultural barriers: Notes:If unable to assess or n ot applicable: Notes:Suicide Assessment:Readmit Risk:RRAT Total Score : 28Advanced Care Planning:Confirm Advance Directive: NoneDoes the patient have oth er document types: Other (comment)(NONE)Discussed with the patien t and all questions fully answered. Name Value Range Interpretation Code Description Data Harriett rce(s) Supporting Document(s ) ID Date Data Source 36N*ENCOUNTER 03/25/2019 09:46:29 AM EST [facility] [id number] [facility] [address] [facility] [address] [phone] Evelio Carlin (Male) [id number] ES I 2 ED Dispo:ADMIT Chief Complaint: Respiratory Distress Diagnosis: Pneumonia of left lower lobe due to infectious organism (HCC) [] Current Providers: Attending: Jenn Neumann; Eloisa Hilsl Consulting Provider: Eloisa Hills; Carmen Dudley A Primary Nurse: Jenn Castro; ANNA MunroeN: [id number] [id number] - Bshsi [employer] MrnMRN: [id number] [employer] [id number] - Bs hsi Ed Medva Age SexDOB 1950 AGE 68 SEX Male Primary Care Provider: Mili Hills DO Phone: [phone]: (No Known Allergies)Date Reviewed: 03/25/2019Reviewed by: Mili Hills DO - Review CompleteED Provider Notes: No notes of this type exist for this encounter.ED Orders SUSIE SEPSI S BUNDLE INITIATED IN ED [#[id number]] Priority: STAT Class: Hospital Performed Standing Order Inf ormation Remaining Occurrences:0/1 Interval:CONTINUOUS Last released:03/25/2019 Releas ed orders: SatMar 25, 2019 2:41 AM by: JESSIE NEUMANN SEPSIS BUNDLE INITIATED IN E D [#[id number]] Priority: STAT Class: Hospital Performed Released on: 03/25/2019 2:41 AM CHELSIE NO VTE PROPHYLAXIS NEEDED [#[id number]] Priority: STAT Class: Hospital Performed Standing O rder Information Remaining Occurrences:N/A-not released Interval:CONTINUOUS [id number] CULTURE, B LOOD [#[id number]] Priority: STAT Class: ER Collect Specimen Source: Blood Stand ing Order Information Remaining Occurrences:0/1 Interval:NOW Last released:2018 Released orders: SatMar 25, 2019 2:41 AM by: JESSIE NEUMANN [id number] CULTURE, BLOOD [#[id number]] Priority: STAT Class: ER Collect Specimen Source: Blood Stand ing Order Information Remaining Occurrences:0/1 Interval:NOW Last released:2018 Released orders: SatMar 25, 2019 2:41 AM by: JESSIE NEUMANN [id number] CULTURE, BLOOD [#[id number]] Priority: STAT Class: ER Collect Specimen Source: Blood Specime n Collected: 03/25/2019 2:55 AM Resulting Agency: [facility] Test ID: HBCS Re leased on: 03/25/2019 2:41 AM [id number] CULTURE, BLOOD [#[id number]] Priority: STAT C lass: ER Collect Specimen Source: Blood Specimen Collected: 03/25/2019 3:10 AM Resulting Agency: [facility] Test ID: HBCS Released on: 03/25/2019 2:41 AM [id number] LACTIC ACI D [#[id number]] Priority: STAT Class: ER Collect Standing Order Information Remaining Occurrences:0/2 Interval:EVERY 4 HRS Last released:03/25/2019 Released orders : SatMar 25, 2019 6:05 AM by: JESSIE NEUMANN SatMar 25, 2019 2:41 AM by: JESSIE FINK [id number] URINALYSIS W/ RFLX MICROSCOPIC [#[id number]] Priority: STAT Class: E R Collect Standing Order Information Remaining Occurrences:0/1 Interval:ONE TIME Last re leased:03/25/2019 Released orders: SatMar 25, 2019 2:41 AM by: JESSIE NEUMANN [id number] CBC WITH AUTOMATED DIFF [#[id number]] Priority: STAT Class: ER Collect Standing Order Info rmation Remaining Occurrences:0/1 Interval:ONE TIME Last released:03/25/2019 Released orders: SatMar 25, 2019 2:41 AM by: JESSIE NEUMANN [id number] METABOLIC PANEL, COMPREHENSIVE [#[id number]] Priority: STAT Class: ER Collect Standing Order Information Remaining Occurre nces:0/1 Interval:ONE TIME Last released:03/25/2019 Released orders: SatMar 25 2:41 AM by: JESSIE NEUMANN [id number] LACTIC ACID [#[id number]] Priority : STAT Class: ER Collect Specimen Source: Plasma Specimen Collected: 03/25/2019 3:10 AM Resulting Agency: [facility] Test ID: LAC Released on: 03/25/2019 2:41 AM [id number] URINALYSIS W/ RFLX MICROSCOPIC [#[id number]] Priority: STAT Class: ER Collect Specimen Source: Urine Specime n Collected: 03/25/2019 4:50 AM Resulting Agency: [facility] Test ID: UA Rele ased on: 03/25/2019 2:41 AM [id number] CBC WITH AUTOMATED DIFF [#[id number]] Priority: STAT Cla ss: ER Collect Specimen Source: Whole Blood Specimen Collected: 03/25/2019 3:10 AM Resulting Agency: [facility] Test ID: CBCA Released on: 03/25/2019 2:41 AM [id number] METABOLIC PANEL, COMPREHENSIVE [#[id number]] Priority: STAT Class: ER Collect Specimen Source: Plasma Specim en Collected: 03/25/2019 3:10 AM Resulting Agency: [facility] Test ID: MPL Rel eased on: 03/25/2019 2:41 AM [id number] BLOOD GAS, ARTERIAL [#[id number]] Priority: STAT Cl ass: ER Collect Standing Order Information Remaining Occurrences:0/1 Interval:ONE TI ME Last released:03/25/2019 Released orders: SatMar 25, 2019 4:02 AM by: JERICHO CASTRO [id number] BLOOD GAS, ARTERIAL [#[id number]] Priority: STAT Class: ER Collect Rel eased on: 03/25/2019 4:02 AM [id number] BLOOD GAS, ARTERIAL [#[id number]] Priority: Routine Class: ER Collect Resulting Agency: [facility] Test ID: ABGG1 Standing O rder Information Remaining Occurrences:0/1 Released orders: SatMar 25, 2019 4:30 AM by: Hilda singletary Batch Process [id number] BLOOD GAS, ARTERIAL [#[id number]] Priority: Routine Class : ER Collect Specimen Source: Arterial Blood Specimen Collected: 03/25/2019 4:30 AM Resulting Agency: [facility] Test ID: ABGG1 Released on: 03/25/2019 4:30 AM [id number] LACTIC ACI D [#[id number]] Priority: STAT Class: ER Collect Specimen Source: Plasma Specim en Collected: 03/25/2019 7:10 AM Resulting Agency: [facility] Test ID: LAC Rel eased on: 03/25/2019 6:05 AM [id number] RENAL FUNCTION PANEL [#[id number]] Priority: Routine Class: ER Collect Standing Order Information Remaining Occurrences:N/A-not released Interval :DAILY [id number] CBC WITH AUTOMATED DIFF [#[id number]] Priority: Routine Class: ER Collect Standing Order Information Remaining Occurrences:N/A-not released Interval:DAILY [id number] MAGNESIUM [#[id number]] Priority: Routine Class: ER Collect Standing Order Information Remaining Occurrences:N/A-not released Interval:DAILY [id number] PHARMACY SALES REPRESENTATIVE - ED ONLY [# [id number]] Priority: STAT Class: Hospital Performed Standing Order Information Remaining Occurre nces:0/1 Interval:Continuous Last released:03/25/2019 Released orders: SatMar 25 019 2:41 AM by: JESSIE NEUMANN Type: -> Bedside [id number] VITAL SIGNS [#[id number]] Priority: Routine Class: Hospital Performed Standing Order Information Remainin g Occurrences:0/1 Interval:EVERY HOUR Last released:03/25/2019 Released orders : SatMar 25, 2019 2:41 AM by: JESSIE NEUMANN [id number] STRICT I & O [#[id number]] Priority: Routine Class: Hospital Performed Standing Order Information Remainin g Occurrences:0/1 Interval:CONTINUOUS Last released:03/25/2019 Released orders : SatMar 25, 2019 2:41 AM by: JESSIE NEUMANN [id number] NEUROLOGIC STATUS ASSESSMENT [#[id number]] Priority: Routine Class: Hospital Performed Standing Order Information Remainin g Occurrences:0/1 Interval:EVERY HOUR Last released:03/25/2019 Released orders : SatMar 25, 2019 2:41 AM by: JESSIE NEUMANN [id number] PHARMACY SALES REPRESENTATIVE - ED ONLY [#[id number]] Priority: STAT Class: Hospital Performed Type: -> Bedside Released on: 019 2:41 AM [id number] VITAL SIGNS [#[id number]] Priority: STAT Class: H ospital Performed Released on: 03/25/2019 2:41 AM [id number] STRICT I & O [#[id number]] Priority: STAT Class: Hospital Performed Released on: 03/25/2019 2:41 AM [id number] NEUROLOGIC STATUS ASSESSMENT [#[id number]] Priority: STAT Class: Hospital Performed Released on: 03/25 2:41 AM [id number] CARDIAC MONITORING [#[id number]] Priority: STAT Class: H ospital Performed Standing Order Information Remaining Occurrences:0/1 Interval: s 24 Hours Last released:03/25/2019 Released orders: SatMar 25, 2019 7:13 AM by: MILI HILLS Type: -> Bedside [id number] CARDIAC MONITORING [#[id number]] Priority: STAT C lass: Hospital Performed Type: -> Bedside Released on: 03/25/2019 7:13 AM [id number] VITAL SIGN S PER UNIT ROUTINE [#[id number]] Priority: STAT Class: Hospital Performed Standing Order Inf ormation Remaining Occurrences:N/A- not released Interval:CONTINUOUS Comment:More freq uently if Indicated. [id number] BEDREST, COMPLETE [#[id number]] Priority: STAT Class: H ospital Performed Standing Order Information Remaining Occurrences:N/A-not released Interval :CONTINUOUS [id number] NOTIFY PROVIDER: VITAL SIGNS CHANGES [#[id number]] Priority: STAT Class: H ospital Performed Standing Order Information Remaining Occurrences:N/A-not released Interval :CONTINUOUS Temp -> Greater than 101 F HR -> Greater than 120 Beats Per Minute or Less than 60 Beats P er Minute RR -> Greater than 30 per minute or Less than 8 per minute SBP -> Greater than 180 mm H g or Less than 90 mm Hg O2 Sat -> Less than 90% UO -> Less than 120 ml in 4 hours [id number] APPLY/M AINTAIN SEQUENTIAL COMPRESSIO* [#[id number]] Priority: STAT Class: Hospital Performed Standing Order Inf ormation Remaining Occurrences:N/A- not released Interval:CONTINUOUS [id number] XR CHEST P ORT [#[id number]] Priority: STAT Class: Hospital Performed Standing Order Inf ormation Remaining Occurrences:0/1 Interval:ONE TIME Last released:03/25/2019 Released orders: SatMar 25, 2019 2:41 AM by: JESSIE NEUMANN Reason for Exam -> Sepsis [id number] XR CHEST PORT [#[id number]] Priority: STAT Class: Hospital Performed Specimen Co llected: 03/25/2019 7:34 AM Resulting Agency: [facility] Test ID: [id number] Reason for Exam -> Sepsis Released on: 03/25/2019 2:41 AM [id number] EKG, 12 LEAD, INITIAL [#[id number]] Priority: STA T Class: Hospital Performed Standing Order Information Remaining Occurrences:0/1 Inter seema:ONE TIME Last released:03/25/2019 Released orders: SatMar 25, 2019 2:41 AM by: JESSIE ZHENG Reason for Exam: - > Sepsis [id number] EKG, 12 LEAD, INITIAL [#[id number]] Priority: STAT Class: Hospital Performed Resulting Agency: [facility] Test ID: [id number] Reason for E xam: -> Sepsis Released on: 03/25/2019 2:41 AM IVT11 SALINE LOCK IV [#[id number]] Priority: STAT Class: Hospital Performed Standing Order Information Remaining Occurrences:0 /1 Interval:ONE TIME Last released:03/25/2019 Released orders: SatMar 25, 2019 2:41 AM by: JESSIE NEUMANN IVT11 SALINE LOCK IV [#[id number]] Priority: STAT Class: Hospital Performed Released on: 03/25/2019 2:41 AM SODIUM CHLORIDE 0.9 % IJ SYRG [#[id number]] Priority: STAT Class: Normal SODIUM CHLORIDE 0.9% BOLUS IV [#[id number]] Priority: STAT Class: Normal SODIUM CHLORIDE 0.9% BOLUS IV [#[id number]] Priorit y: STAT Class: Normal CEFEPIME 1 GRAM IVPB MBP [#[id number]] Priority: STAT Class: N ormal Antibiotic Indications -> Pneumonia (HAP) IPRATROPIUM-ALBUTEROL 2.5 MG-0.5 MG/* [# [id number]] Priority: STAT Class: Normal MODE OF DELIVERY -> Nebulizer CEFEPIME 1 GRAM IVPB MBP [#[id number]] Priority: STAT Class: Normal Antibiotic Indications -> Pneumonia (HAP ) HAP duration of therapy -> 7 days VANCOMYCIN IVPB < 1.5 GM [#[id number]] Prio rity: STAT Class: Normal Antibiotic Indications -> Pneumonia (HAP) HAP duration of therapy -> Ot her Cmt: once ACETAMINOPHEN (TYLENOL) SOLUTION 32M* [#[id number]] Priority: STAT Class: N ormal ACETYLCYSTEINE 10 % (100 MG/ML) SOLN [#[id number]] Priority: STAT Class: Normal MODE OF DELIVERY -> Nebulizer BUDESONIDE 0.5 MG/2 ML NEB SUSPENSION [#[id number]] Priority: STA T Class: Normal MODE OF DELIVERY - > Nebulizer CINACALCET 30 MG TAB [# [id number]] Priority: STAT Class: Normal ALPRAZOLAM 0.25 MG TAB [#[id number]] Pr iority: STAT Class: Normal HEPARIN (PORCINE) 5,000 UNIT/ML IJ S* [#[id number]] Priority: STAT Cl ass: Normal LAMOTRIGINE 25 MG TAB [#[id number]] Priority: STAT Class: N ormal MULTIVITAMIN TAB [#[id number]] Priority: STAT Class: Normal VALPROIC ACID ( SODIUM SALT) 250 M* [#[id number]] Priority: STAT Class: Normal METHYLPREDNISOLO NE (PF) 40 MG/ML IJ * [#[id number]] Priority: STAT Class: Normal SODIUM CHLORIDE 0.9 % IV [#[id number]] Priority: STAT Class: Normal MULTIVITAMIN-FOLIC ACID-HERBAL NO.27* [# [id number]] Priority: STAT Class: Normal ALPRAZOLAM 0.25 MG TAB [#[id number]] Pr iority: STAT Class: Normal CEFEPIME 1 GRAM IVPB MBP [#[id number]] Priority: STAT Clas s: Normal Antibiotic Indications -> Pneumonia (HAP) HAP duration of therapy -> 7 days [id number] NON-INVASIVE POSITIVE PRESSURE VENTI* [#[id number]] Priority: STAT Class: Hospital Performed Standing Or bassem Information Remaining Occurrences:0/1 Interval:Continuous Last released :03/25/2019 Released orders: SatMar 25, 2019 4:02 AM by: CAROLE CASTRO Type -> A dult/Pediatric Indication for use - > Acute Have the absolute and relative contraindications for NIPPV beenconsidered (hyperlink above)? -> Yes Mode -> Bi-Level [id number] NON-INVASIVE POSITIVE PRESSURE VENTI* [#[id number]] Priority: STAT Class: Hospital Performed Type -> Adult/Pediatric Indication for use -> Acute Have the absolute and relative contraindications for NIPPV beenconsidered (hyperlink above)? -> Yes Mode -> Bi-Level Released on: 03/25/2019 4:02 AM CON3 IP CONSULT TO FAMILY PRACTICE [#[id number]] Priority: STAT Class: Hospital Performed Standing Order Information Remaining Occurre nces:0/1 Interval:ONE TIME Last released:03/25/2019 Released orders: SatMar 25 5:53 AM by: JESSIE NEUMANN Reason for Consult: -> admission Did you call or speak to the consulting provider? -> No Consult To -> Reinier Schedule When? -> TODAY CON3 IP CONSULT TO [facility] [#[id number]] Priority: STAT Class: Hospital Performed Comment:Dr Neumann spoke w Dr Hills Reason for Consult: -> admission Did you call or speak to the consulting provider? -> No Consult To -> Reinier Schedule When? -> TODAY Released on: 03/25/2019 5:53 AM CON5 IP CONSULT TO INFECTIOUS DISEASES [#[id number]] Priority: Routine Class: Hospital Performed Standing Order Inf ormation Remaining Occurrences:0/1 Interval:ONE TIME Last released:03/25/2019 Released orders: SatMar 25, 2019 7:25 AM by: MILI HILLS Reason for Consult: -> possible sepsis/p neumonia Did you call or speak to the consulting provider? -> No Consult To -> Dr Dudley Schedule W hen? -> TODAY CON5 IP CONSULT TO INFECTIOUS DISEASES [#[id number]] Priority: Routine Class : Hospital Performed Comment:INFECTIOUS DISEASE: Dr. Dudley's service called today's consult. Reason for Consult: -> possible sepsis/pneumonia Did you call or speak to the consulting provider? -> No Consult To -> Dr Dudley Schedule When? -> TODAY Released on: 03/25/2019 7:25 AM [id number] INITIAL PHYSICIAN ORDE R: INPATIENT [#[id number]] Priority: Routine Class: ADT Pend Transfer Standing Order Information Remaining Occurrences:0/1 Interval:ONE TIME Last released:03/25/2019 Released orders : SatMar 25, 2019 7:13 AM by: MILI HLILS Status: -> INPATIENT Inpatient Hospitalizat ion Certified Necessary for the Following Reasons -> 3- . P- a- t- i- e- n- t r- e- c- e- i- v- i- n- g t - r- e- a- t- m- e- n - t t- h- a- t c- a- n o- n- l- y b- e p- r- o- v- i- d- e- d i- n a- n i- n- p- a- t- i- e- n- t s- e- t- t- i- n- g (- f- u- r- t- h- e- r c- l- a- r- i- f- i- c- a- t- i- o- n i- n H- &- P d- o- c- u- m- e- n- t- a- t- i- o- n- ) Admitting Diagnosis -> Acute hypoxemic r espiratory failure (HCC) Admitting Physician -> MILI HILLS Attending Physician -> MILI HILLS Estimated Length of Stay -> 5-7 Midnights Discharge Plan: -> Extended Care Facility (e.g. Adult Home, Detention, etc.) [id number] INITIAL PHYSICIAN ORDER: INPATIENT [#[id number]] Devin foley: Routine Class: ADT Pend Transfer Status: -> INPATIENT Inpatient Hospitalization Certified Cy delgado for the Following Reasons -> 3- . P- a- t- i- e- n - t r- e- c- e- i- v- i- n- g t- r- e- a- t- m- e- n- t t- h- a- t c- a- n o- n- l- y b- e p- r- o- v- i- d- e- d i- n a- n i- n- p- a- t- i- e- n- t s- e- t- t- i- n- g (- f- u- r- t- h- e- r c- l- a- r- i- f- i- c- a- t- i- o- n i- n H- &- P d- o- c- u- m- e- n- t- a- t- i- o- n- ) Admitting Diagnosis -> Acute hypoxemic respiratory failure (HCC ) Admitting Physician -> MILI HILLS Attending Physician -> MILI HILLS Estimated Length of Stay -> 5-7 Midnights Discharge Plan: -> Extended Care Facility (e.g. Adult Home, Detention, etc.) Released on: 03/25/2019 7:13 AM CON54 IP CONSULT TO PULMONOLOGY [#[id number]] Priority: Routine Class: Hospital Performed Standing Order Information Josie medina Occurrences:0/1 Interval:ONE TIME Last released:03/25/2019 Released orders : SatMar 25, 2019 7:27 AM by: MILI HILLS Reason for Consult: -> acute hypoxic respiratro y failure/pneumonia Did you call or speak to the consulting provider? -> No Consult To -> Dr Sa damian Schedule When? -> TODAY CON54 IP CONSULT TO PULMONOLOGY [#[id number]] Priority: Rout ine Class: Hospital Performed Comment:Dr Jasmin Howell @ [facility] called with today's consult / Dr Flores [facility] Reason for Consult: -> acute hypoxic respiratroy failure/pneumonia Did you call or s peak to the consulting provider? -> No Consult To -> Dr Nolen Schedule When? -> TODAY Released on: 03/25/2019 7:27 AM COD2 FULL CODE [#[id number]] Priority: STAT Class: H ospital Performed Standing Order Information Remaining Occurrences:N/A-not released Interval :Evelio Hightower MR#: [id number] * Rm: 341-02Ht: Wt: 1 20 lb Code: Prior Iso:Diagnosis:Acute hypoxemic respiratory failure (HCC) [J96.01]Allerg ies: No Known Allergies -------- Current as of: 03/25/19 0946 GI=Given IC=IV Complet ed CT=Missed NB=New Bag --albuterol-ipratropium (DUO-NEB) 2.5 MG-0.5 MG/3 ML #[id number] Admin Amount: 3 mL Ordered Dose: 3 mL Route: Nebulization Freq: NOW Start Date: 11/07/18 No administration times (back 96 hours, ahead 96 hours). ------methylPREDNISolone (PF) (Solu-MEDROL) injection 125 mg #[id number] Admin Amount: 2 mL = 125 mg of 125 mg/2 mL Ordered Dose: 125 mg Route: Int raVENous Freq: NOW Start Date: 11/07/18 No administration times (back 96 hours, ahe ad 96 hours). ------cefTRIAXone (ROCEPHIN) 1 g in 0.9% sodium chloride (MBP/ADV) 50 m L M*#[id number] Admin Amount: 1 g Ordered Dose: 1 g Route: IntraVENous Freq: NOW Start Date: 11/07/18 Rate: 100 mL/hr Duration: 30 Minutes No administration times (back 96 hours, ahead 96 hours). ------azithromycin (ZITHROMAX) 500 mg in NS 250 mL #[id number] Admin Amount: 250 mL = 500 mg of 500 mg/250 mL Ordered Dose: 500 mg Route: Int raVENous Freq: NOW Start Date: 11/07/18 Rate: 250 mL/hr Duration: 6 0 Minutes No administration times (back 96 hours, ahead 96 hours). ------iopamidol (ISOVUE-370) 76 % injection 100 mL #[id number] Admin Amount: 100 mL Ordered Dose: 100 mL Route: IntraVENous Freq: RAD ONCE Start Date: 11/07/18 No administration times (back 96 hours, ahead 96 hours). ------sodium chloride 0.9 % bolus infusion 500 mL #[id number] Admin Amount: 500 mL Ordered Dose: 500 mL Route: IntraVENo us Freq: ONCE Start Date: 11/08/18 Rate: 666.7 mL/hr Duration: 45 Danielle tasha No administration times (back 96 hours, ahead 96 hours). ------ALPRAZolam (XANAX) tablet 0.25 mg #[id number] Admin Amount: 1 Tab (1 x 0.25 mg Tab) Ordered Dose: 0.25 mg Route: Oral Dg q: DAILY Start Date: 11/08/18 No administration times (back 96 hours, ahead 96 hours).Evelio Garnett MR#: [id number] * Rm: 341-02Ht: Wt: 120 lb Cod e: Prior Iso:Diagnosis:Acute hypoxemic respiratory failure (HCC) [J96.01]Allergies: No Known Allergies -------- Current as of: 03/25/19 0946 GI=Given IC=IV Complet ed CT=Missed NB=New Bag --cefTRIAXone (ROCEPHIN) 1 g in 0.9% sodium chloride (MBP/ADV) 50 mL M*# [id number] Admin Amount: 1 g Ordered Dose: 1 g Route: IntraVENous Freq: EVERY 24 HOURS Start Date: 11/08/18 Rate: 100 mL/hr Duration: 30 Minutes No administration times (back 96 hours, ahead 96 hours). ------azithromycin (ZITHROMAX) 500 mg in 0.9% sodium chloride 250 mL IV PB #[id number] Admin Amount: 500 mg Ordered Dose: 500 mg Route: IntraVENous Freq: EVERY 24 H OURS Start Date: 11/08/18 Rate: 250 mL/hr Duration: 60 Minutes No administration times (back 96 hours, ahead 96 hours). ------LORazepam (ATIVAN) injection 0.5 mg #[id number] Admin Amount: 0.25 mL = 0.5 mg of 2 mg/mL Ordered Dose: 0.5 mg Ro manzanita: IntraVENous Freq: ONCE Start Date: 11/10/18 No administration times (back 96 hours, ahead 96 hours). ------LORazepam (ATIVAN) injection 2 mg #[id number] Admin Amount: 1 mL = 2 mg of 2 mg/mL Ordered Dose: 2 mg Route: Int raVENous Freq: ONCE Start Date: 11/11/18 No administration times (back 96 hours, ahe ad 96 hours). ------LORazepam (ATIVAN) injection 0.5 mg #[id number] Admin Amount: 0.25 mL = 0.5 mg of 2 mg/mL Ordered Dose: 0.5 mg Ro manzanita: IntraVENous Freq: ONCE Start Date: 11/11/18 No administration times (back 96 hours, ahead 96 hours). ------acetaminophen (OFIRMEV) infusion 1,000 mg #[id number] Admin Amount: 100 mL = 1,000 mg of 1,000 mg/100 mL Ordered Dose: 1,000 mg Ro manzanita: IntraVENous Freq: EVERY 6 HOURS Start Date: 11/17/18 Rate: 400 mL/hr Durat ion: 15 Minutes No administration times (back 96 hours, ahead 96 hours). ------HYDROmorphone (DILAUDID) syringe 0.5 mg #[id number] Admin Amount: 0.5 mL = 0.5 mg of 0.5 mg/0.5 mL Ordered Dose: 0.5 mg Route: Int raVENous Freq: EVERY 6 HOURS NEEDED Start Date: 11/17/18 No administration times (back 96 hours, ahe ad 96 hours).Evelio Carlin MR#: [id number] * Rm: 341-02Ht: Wt: 1 20 lb Code: Prior Iso:Diagnosis:Acute hypoxemic respiratory failure (HCC) [J96.01]Allerg ies: No Known Allergies -------- Current as of: 03/25/19 0946 GI=Given IC=IV Complet ed CT=Missed NB=New Bag --acetaminophen (OFIRMEV) infusion 1,000 mg #[id number] Admin Amount: 100 mL = 1,000 mg of 1,000 mg/100 mL Ordered Dose: 1,000 mg Ro manzanita: IntraVENous Freq: EVERY 6 HOURS Start Date: 11/18/18 Rate: 400 mL/hr Durat ion: 15 Minutes No administration times (back 96 hours, ahead 96 hours). ------piperacillin-tazobactam (ZOSYN) 3.375 g in 0.9% sodium chloride (MBP*#[id number] Admin Amount: 3.375 g Ordered Dose: 3.375 g Route: IntraVENous Freq: EVERY 8 HOURS Start Date: 11/18/18 Rate: 25 mL/hr Duration: 240 Minutes No administrati on times (back 96 hours, ahead 96 hours). ------potassium chloride 10 mEq in 100 ml IVPB #[id number] Admin Amount: 100 mL = 10 mEq of 10 mEq/100 mL Ordered Dose: 10 mEq Route: Int raVENous Freq: EVERY 1 HOUR Start Date: 11/19/18 Rate: 100 mL/hr Duration: 6 0 Minutes No administration times (back 96 hours, ahead 96 hours). ------diatrizoate tiffani-diatrizoat sod (RUTHYGASTROVIEW,GASTRO GRAFIN) 66-10 % *#[id number] Admin Amount: 30 mL Ordered Dose: 30 mL Route: Oral Freq: RAD O NCE Start Date: 11/19/18 No administration times (back 96 hours, ahead 96 hours). ------acetaminophen (OFIRMEV) infusion 1,000 mg #[id number] Admin Amount: 100 mL = 1,000 mg of 1,000 mg/100 mL Ordered Dose: 1,000 mg Ro manzanita: IntraVENous Freq: EVERY 6 HOURS Start Date: 11/21/18 Rate: 400 mL/hr Durat ion: 15 Minutes No administration times (back 96 hours, ahead 96 hours). ------acetaminophen (OFIRMEV) infusion 1,000 mg #[id number] Admin Amount: 100 mL = 1,000 mg of 1,000 mg/100 mL Ordered Dose: 1,000 mg Ro manzanita: IntraVENous Freq: EVERY 6 HOURS Start Date: 11/22/18 Rate: 400 mL/hr Durat ion: 15 Minutes No administration times (back 96 hours, ahead 96 hours). ------LORazepam (ATIVAN) tablet 0.5 mg #[id number] Admin Amount: 1 Tab (1 x 0.5 mg Tab) Ordered Dose: 0.5 mg Route: Per G Tube F req: EVERY BEDTIME Start Date: 11/23/18 No administration times (back 96 hours, ahead 96 hours).Evelio Garnett MR#: [id number] * Rm: 341-02Ht: Wt: 120 lb Cod e: Prior Iso:Diagnosis:Acute hypoxemic respiratory failure (HCC) [J96.01]Allergies: No Known Allergies -------- Current as of: 03/25/19 0946 GI=Given IC=IV Complet ed CT=Missed NB=New Bag --vancomycin (VANCOCIN) 1,250 mg in 0.9% sodium chloride 250 mL IVPB #[id number] Admin Amount: 1,250 mg Ordered Dose: 1,250 mg Route: IntraVENous Freq: EVERY 12 HO URS Start Date: 11/24/18 Rate: 125 mL/hr Duration: 120 Minutes No administration times (back 96 hours, ahead 96 hours). ------potassium chloride (KLOR-CON) packet for solution 20 mEq #[id number] Admin Amount: 1 Packet (1 x 20 mEq Packet) Ordered Dose: 20 mEq Ro manzanita: Oral Freq: 2 TIMES DAILY WITH MEALS Start Date: 11/25/18 No administration times (back 96 hours, ahe ad 96 hours). ------piperacillin-tazobactam (ZOSYN) 3.375 g in 0.9% sodium chloride (MBP*#[id number] Admin Amount: 3.375 g Ordered Dose: 3.375 g Route: IntraVENous Freq: NOW Start Date: 12/12/18 Rate: 200 mL/hr Duration: 30 Minutes No administrati on times (back 96 hours, ahead 96 hours). ------albuterol-ipratropium (DUO-NEB) 2.5 MG-0.5 MG/3 ML #[id number] Admin Amount: 3 mL Ordered Dose: 3 mL Route: Nebulization Freq: NOW Start Date: 12/12/18 No administration times (back 96 hours, ahead 96 hours). ------methylPREDNISolone (PF) (Solu-MEDROL) injection 125 mg #[id number] Admin Amount: 2 mL = 125 mg of 125 mg/2 mL Ordered Dose: 125 mg Route: Int raVENous Freq: NOW Start Date: 12/12/18 No administration times (back 96 hours, ahe ad 96 hours). ------albuterol-ipratropium (DUO-NEB) 2.5 MG-0.5 MG/3 ML #[id number] Admin Amount: 3 mL Ordered Dose: 3 mL Route: Nebulization Freq: NOW Start Date: 12/12/18 No administration times (back 96 hours, ahead 96 hours). ------albuterol-ipratropium (DUO-NEB) 2.5 MG-0.5 MG/3 ML #[id number] Admin Amount: 3 mL Ordered Dose: 3 mL Route: Nebulization Freq: NOW Start Date: 12/12/18 No administration times (back 96 hours, ahead 96 hours).Ivelisse Carlin MR#: [id number] * Rm: 341-02Ht: Wt: 120 lb Code: Prior Iso:Diagnosis:Acute hypoxemic respiratory failure (HCC) [J96.01]Allergies: No Known Allergies -------- Current as of: 03/25/19 0946 GI=Given IC=IV Complet ed CT=Missed NB=New Bag -- Followed by [facility] (Order count: 2)sodium chloride 0.9 % jeff aspen infusion 1,000 mL #[id number] Admin Amount: 1,000 mL Ordered Dose: 1,000 mL Route: IntraVENous Freq: ONCE Start Date: 12/12/18 No administration times ( back 96 hours, ahead 96 hours). - Followed by - - - - - - - - - - - - - - - - - - - - - - - - - - - - - - - -s odium chloride 0.9 % bolus infusion 593 mL #[id number] Admin Amount: 593 mL Ordere d Dose: 593 mL Route: IntraVENous Freq: ONCE Start Date: 12/12/18 No adm inistration times (back 96 hours, ahead 96 hours). ------iopamidol (ISOVUE-370) 76 % injection 125 mL #[id number] Admin Amount: 125 mL Ordered Dose: 125 mL Route: IntraVENous Freq: RAD ONCE Start Date: 12/17/18 No administration times (back 96 hours, ahead 96 hours). ------lidocaine (XYLOCAINE) 20 mg/mL (2 %) injection 100 mg #[id number] Admin Amount: 5 mL = 100 mg of 2,000 mg/100 mL Ordered Dose: 5 mL Route: IntraDERMal Freq: ONCE Start Date: 12/19/18 No administration times (b ack 96 hours, ahead 96 hours). ------oxyCODONE-acetaminophen (PERCOCET) 5-325 mg per tablet 1 Tab #[id number] Admin Amount: 1 Tab Ordered Dose: 1 Tab Route: Oral Freq: EVERY 8 HOURS NEEDED Start Date: 12/19/18 No administration times (back 96 hours, ahead 96 hours). ------furosemide (LASIX) injection 20 mg #[id number] Admin Amount: 2 mL = 20 mg of 10 mg/mL Ordered Dose: 20 mg Ro manzanita: IntraVENous Freq: ONCE Start Date: 12/26/18 No administration times (back 96 hours, ahead 96 hours). ------furosemide (LASIX) injection 20 mg #[id number] Admin Amount: 2 mL = 20 mg of 10 mg/mL Ordered Dose: 20 mg Route: Int raVENous Freq: ONCE Start Date: 12/29/18 No administration times (back 96 hours, ahe ad 96 hours).Evelio Carlin MR#: [id number] * Rm: 341-02Ht: Wt: 1 20 lb Code: Prior Iso:Diagnosis:Acute hypoxemic respiratory failure (HCC) [J96.01]Allerg ies: No Known Allergies -------- Current as of: 03/25/19 0946 GI=Given IC=IV Complet ed CT=Missed NB=New Bag --albuterol-ipratropium (DUO-NEB) 2.5 MG-0.5 MG/3 ML #[id number] Admin Amount: 3 mL Ordered Dose: 3 mL Route: Nebulization Freq: NOW Start Date: 01/10/19 No administration times (back 96 hours, ahead 96 hours). ------methylPREDNISolone (PF) (Solu-MEDROL) injection 125 mg #[id number] Admin Amount: 2 mL = 125 mg of 125 mg/2 mL Ordered Dose: 125 mg Route: Int raVENous Freq: NOW Start Date: 01/10/19 No administration times (back 96 hours, ahe ad 96 hours). ------albuterol-ipratropium (DUO-NEB) 2.5 MG-0.5 MG/3 ML #[id number] Admin Amount: 3 mL Ordered Dose: 3 mL Route: Nebulization Freq: NOW Start Date: 01/10/19 No administration times (back 96 hours, ahead 96 hours). ------acetaminophen (TYLENOL) tablet 650 mg #[id number] Admin Amount: 2 Tab (2 x 325 mg Tab) Ordered Dose: 650 mg Route: Per G Tub e Freq: NOW Start Date: 01/10/19 No administration times (back 96 hours, ahe ad 96 hours). ------piperacillin-tazobactam (ZOSYN) injection 3.375 g #[id number] Admin Amount: 3.375 g Ordered Dose: 3.375 g Route: IntraVENous Freq: NOW Start Date: 01/10/19 No administration times (back 96 hours, ahead 96 hours). ------vancomycin (VANCOCIN) 1,000 mg in 0.9% sodium chloride 250 mL IVPB #[id number] Admin Amount: 1,000 mg Ordered Dose: 1,000 mg Route: IntraVENous Freq: ONCE Start Date: 01/10/19 Rate: 125 mL/hr Duration: 120 Minutes No administ ration times (back 96 hours, ahead 96 hours). ------ Followed by [facility] (Order count: 2)sodium chloride 0. 9 % bolus infusion 1,000 mL #[id number] Admin Amount: 1,000 mL Ordered Dose: 1,000 mL Route: IntraVENous Freq: ONCE Start Date: 01/10/19 No administration t imes (back 96 hours, ahead 96 hours).Evelio Carlin MR#: [id number] * Rm: 34 02Ht: Wt: 120 lb Code: Prior Iso:Diagnosis:Acute hypoxemic respirator y failure (HCC) [J96.01]Allergies: No Known Allergies -------- Current as of: 03/25/19 0946 GI=Given IC=IV Complet ed CT=Missed NB=New Bag - Followed by - - - - - - - - - - - - - - - - - - - - - - - - - - - - - - - -sodiu m chloride 0.9 % bolus infusion 551 mL #[id number] Admin Amount: 551 mL Ordere d Dose: 551 mL Route: IntraVENous Freq: ONCE Start Date: 01/10/19 No adm inistration times (back 96 hours, ahead 96 hours). ------0.9% sodium chloride (MBP/ADV) infusion #[id number] Ordered Dose: Route: Freq: Start Date: No administration times (back 96 hours, ahead 96 hours). ------influenza vaccine (65 yrs+)(PF) (FLUZONE HIGH-DOSE) inject io*#[id number] Admin Amount: 0.5 mL Ordered Dose: 0.5 mL Route: IntraMUSCular Freq: PRIOR TO DISCHARGE Start Date: 01/10/19 No administration times (back 96 hours, ahead 96 hours). ------piperacillin-tazobactam (ZOSYN) 3.375 g in 0.9% sodium chloride (MBP*#[id number] Admin Amount: 3.375 g Ordered Dose: 3.375 g Route: IntraVENous Freq: EVERY 8 HOURS Start Date: 01/10/19 Rate: 25 mL/hr Duration: 240 Minutes No administrat ion times (back 96 hours, ahead 96 hours). ------potassium, sodium phosphates (NEUTRA-PHOS) packet 1 Packet #[id number] Admin Amount: 1 Packet Ordered Dose: 1 Packet Route: Per G Tube Freq: 4 TIMES DAILY Start Date: 01/12/19 No administration times (back 96 hours, ahead 96 hours). ------iopamidol (ISOVUE 300) 61 % contrast injection 100 mL #[id number] Admin Amount: 100 mL Ordered Dose: 100 mL Route: IntraVENous Freq: RAD ONCE Start Date: 01/15/19 No administration times (back 96 hours, ahead 96 hours). ------sodium phosphate 15 mmol in 0.9% sodium chlorid e 250 mL infusion #[id number] Ordered Dose: Route: IntraVENous Freq: ONCE Start Date: 01/20/19 Rate: 63.8 mL/hr Duration: 4 Hours No administration patria es (back 96 hours, ahead 96 hours).Evelio Carlin MR#: [id number] * Rm: 34 04-16Ht: Wt: 120 lb Code: Prior Iso:Diagnosis:Acute hypoxemic respirator y failure (HCC) [J96.01]Allergies: No Known Allergies -------- Current as of: 03/25/19 0946 GI=Given IC=IV Complet ed CT=Missed NB=New Bag --acetaZOLAMIDE SR (DIAMOX) capsule 500 mg #[id number] Admin Amount: 1 Cap (1 x 500 mg Cap) Ordered Dose: 500 mg Route: Oral Freq: O NCE Start Date: 01/23/19 No administration times (back 96 hours, ahead 96 hours). ------albuterol (PROVENTIL VENTOLIN) nebulizer solution 2.5 mg #[id number] Admin Amount: 3 mL = 2.5 mg of 2.5 mg/3 mL Ordered Dose: 2.5 mg Route: Neb ulization Freq: NOW Start Date: 02/08/19 No administration times (back 96 hours, e ad 96 hours). ------albuterol (PROVENTIL VENTOLIN) nebulizer solution 2.5 mg #[id number] Admin Amount: 3 mL = 2.5 mg of 2.5 mg/3 mL Ordered Dose: 2.5 mg Route: Neb ulization Freq: NOW Start Date: 02/08/19 No administration times (back 96 hours, e ad 96 hours). ------ Followed by [facility] (Order count: 2)sodium chloride 0. 9 % bolus infusion 1,000 mL #[id number] Admin Amount: 1,000 mL Ordered Dose: 1,000 mL Route: IntraVENous Freq: ONCE Start Date: 02/08/19 No administration times (back 96 hours, ahead 96 hours). - Followed by - - - - - - - - - - - - - - - - - - - - - - - - - - - - - - - -sodium chloride 0.9 % bolus infusion 701 mL #[id number] Admin Amount: 701 mL Orde red Dose: 701 mL Route: IntraVENous Freq: ONCE Start Date: 02/08/19 No administration times (back 96 hours, ahead 96 hours). ------cefepime (MAXIPIME) 2 g in 0.9% sodium chloride (MBP/ADV) 100 mL MBP #[id number] Admin Amount: 2 g Ordered Dose: 2 g Route: IntraVENous Freq: NOW Start Date: 02/08/19 Rate: 200 mL/hr Duration: 30 Minutes No administration times (back 96 hours, ahead 96 hours). ------vancomycin (VANCOCIN) 1,000 mg in 0.9% sodium chloride 250 mL IVPB #[id number] Admin Amount: 1,000 mg Ordered Dose: 1,000 mg Route: IntraVENous Freq: ONCE Start Date: 02/08/19 Rate: 125 mL/hr Duration: 120 Minutes No adminis tration times (back 96 hours, ahead 96 hours).Evelio Carlin MR#: [id number] * Rm: 341-02Ht: Wt: 120 lb Code: Prior Iso:Diagnosis:Acute hypoxemic respirator y failure (HCC) [J96.01]Allergies: No Known Allergies -------- Current as of: 03/25/19 0946 GI=Given IC=IV Complet ed CT=Missed NB=New Bag --ALPRAZolam (XANAX) tablet 0.25 mg #[id number] Admin Amount: 1 Tab (1 x 0.25 mg Tab) Ordered Dose: 0.25 mg Route: Per G Tub e Freq: 4 TIMES DAILY NEEDED Start Date: 02/08/19 No administration times (back 96 hours, [facility] ad 96 hours). ------cefepime (MAXIPIME) 2 g in 0.9% sodium chloride (MBP/ADV) 100 mL MBP #[id number] Admin Amount: 2 g Ordered Dose: 2 g Route: IntraVENous Freq: EVERY 8 HOUR S Start Date: 02/09/19 Rate: 200 mL/hr Duration: 30 Minutes No administration times (back 96 hours, ahead 96 hours). ------ALPRAZolam (XANAX) tablet 0.25 mg #[id number] Admin Amount: 1 Tab (1 x 0.25 mg Tab) Ordered Dose: 0.25 mg Route: Per G Tub e Freq: 4 TIMES DAILY NEEDED Start Date: 02/14/19 No administration times (back 96 hours, ahe ad 96 hours). ------propofol (DIPRIVAN) 10 mg/mL injection #[id number] Ordered Dose: Route: Freq: Start Date: 02/16/19 No administration times (back 96 hours, ahead 96 hours). ------midazolam (PF) (VERSED) 1 mg/mL injection #[id number] Ordered Dose: Route: Freq: Start Date: 9 No administration times (back 96 hours, ahead 96 hours). ------albuterol (PROVENTIL VENTOLIN) 2.5 mg /3 mL (0.083 %) nebuliz er river*#[id number] Ordered Dose: Route: Freq: Start Date: 04/18/18 No administration times (back 96 hours, ahead 96 hours). ------albuterol (PROVENTIL VENTOLIN) nebulizer solution 2.5 mg #[id number] Admin Amount: 3 mL = 2.5 mg of 2.5 mg/3 mL Ordered Dose: 2.5 mg Route: Inh alation Freq: NEEDED Start Date: 02/16/19 No administration times (back 96 hours, ahe ad 96 hours). ------ePHEDrine (MISTOLE) 50 mg/mL injection #[id number] Ordered Dose: Route: Freq: Start Date: 02/16/19 No administration times (back 96 hours, ahead 96 hours).Evelio Carlin MR#: [id number] * Rm: 341-02Ht: Wt: 120 lb Code: Prior Iso:Diagnosis:Ac manzanita hypoxemic respiratory failure (HCC) [J96.01]Allergies: No Known Allergies -------- Current as of: 03/25/19 0946 GI=Given IC=IV Complet ed CT=Missed NB=New Bag --propofol (DIPRIVAN) 10 mg/mL injection #[id number] Ordered Dose: Route: Freq: Start Date: 02/17/19 No administration times (back 96 hours, ahead 96 hours). ------fentaNYL citrate (PF) 50 mcg/mL injection #[id number] Ordered Dose: Route: Freq: Start Date: No administration times (back 96 hours, ahead 96 hours). ------midazolam (PF) (VERSED) 1 mg/mL injection #[id number] Ordered Dose: Route: Freq: Start Date: 9 No administration times (back 96 hours, ahead 96 hours). ------acetaminophen (TYLENOL) tablet 975 mg #[id number] Admin Amount: 3 Tab (3 x 325 mg Tab) Ordered Dose: 975 mg Route: Oral Dg q: NOW Start Date: 03/11/19 No administration times (back 96 hours, ahead 96 hours). ------vancomycin (VANCOCIN) 1,000 mg in 0.9% sodium chloride 250 mL IVPB #[id number] Admin Amount: 1,000 mg Ordered Dose: 1,000 mg Route: IntraVENous Freq: ONCE Start Date: 03/11/19 Rate: 125 mL/hr Duration: 120 Minutes No adminis tration times (back 96 hours, ahead 96 hours). ------sodium chloride (NS) flush 5-10 mL #[id number] Admin Amount: 5-10 mL Ordered Dose: 5-10 mL Route: IntraVENous Freq: NE EDED Start Date: 03/25/19 No administration times (back 96 hours, ahead 96 hours). ------sodium chloride 0.9 % bolus infusion 1,000 mL #[id number] Admin Amount: 1,000 mL Ordered Dose: 1,000 mL Route: IntraVENous Freq: ONCE Start Date: 03/25/19 Rate: 1,000 mL/hr Duration: 60 Minutes Administrat ion times (back 96 hours, ahead 96 hours): 03/25/19: 0437NB 0653Evelio Radford#: [id number] * Rm: 341-02Ht: Wt: 120 lb Code: Prior Iso:Diagnosis:Acu te hypoxemic respiratory failure (HCC) [J96.01]Allergies: No Known Allergies -------- Current as of: 03/25/19 0946 GI=Given IC=IV Complet ed CT=Missed NB=New Bag --sodium chloride 0.9 % bolus infusion 1,000 mL #[id number] Admin Amount: 1,000 mL Ordered Dose: 1,000 mL Route: IntraVENous Freq: ONCE Start Date: 03/25/19 Rate: 1,000 mL/hr Duration: 60 Minutes Administration ti mes (back 96 hours, ahead 96 hours): 03/25/19: 0324NB 0437IC -----cefepime (MAXIPIME) 1 g in 0.9% sodium chloride (MBP/ADV) 50 mL MBP #[id number] Admin Amount: 1 g Ordered Dose: 1 g Route: IntraVENous Freq: ONCE Start Date: 03/25/19 Rate: 100 mL/hr Duration: 30 Minutes Administration patria es (back 96 hours, ahead 96 hours): 03/25/19: 0710NB 0758IC -----albuterol-ipratropium (DUO-NEB) 2.5 MG-0.5 MG/3 ML #[id number] Admin Amount: 3 mL Ordered Dose: 3 mL Route: Nebulization Freq: EVERY 4 HOURS RESP Start Date: 03/25/19 Administration times (back 96 hours, ahead 96 hours): 03/25/19: 0851G I 119903/26/19: 399 08119903/27/19: 399 08119903/28/19: 0000 0 08119903/29/19: 0000 0400 0800 ---vancomycin (VANCOCIN) 1,000 mg in 0.9% sodium chloride 250 mL IVPB #[id number] Admin Amount: 1,000 mg Ordered Dose: 1,000 mg Route: IntraVENous Freq: ONCE Start Date: 03/25/19 Rate: 125 mL/hr Duration: 120 Minutes Administration t imes (back 96 hours, ahead 96 hours): 03/25/19: 0717MI 0915NB -----acetaminophen (TYLENOL) solution 650 mg #[id number] Admin Amount: 20.3 mL = 650 mg of 325 mg/10.15 mL Ordered Dose: 650 mg Ro manzanita: Per G Tube Freq: EVERY 4 HOURS NEEDED Start Date: 03/25/19 No administration times (back 96 hours, ahead 96 hours).Evelio Carlin MR#: [id number] * Rm: 341-02Ht: Wt: 1 20 lb Code: Prior Iso:Diagnosis:Acute hypoxemic respiratory failure (HCC) [J96.01]Allerg ies: No Known Allergies -------- Current as of: 03/25/19945 GI=Given IC=IV Complet ed CT=Missed NB=New Bag --acetylcysteine (MUCOMYST) 100 mg/mL (10 %) nebulizer solution 400 mg # [id number] Admin Amount: 4 mL = 400 mg of 100 mg/mL Ordered Dose: 4 mL Route: Inhalation Fr eq: 2 TIMES DAILY Start Date: 03/25/19 Administration times (back 96 hours, ahead 96 hours): 03/25/19: 89903/26/19: 89903/27/19: 89903/28/19: 89903/29/19: 899 ---budesonide (PULMICORT) 500 mcg/2 ml nebulizer suspension #[id number] Admin Amount: 2 mL = 500 mcg of 500 mcg/2 mL Ordered Dose: 500 mcg Route: Neb ulization Freq: 2 TIMES DAILY Start Date: 03/25/19 Administration times (back 96 hours, e ad 96 hours): 03/25/19: 179903/26/19: 89903/27/19: 89903/28/19: 89903/29/19: 899 ---cinacalcet (SENSIPAR) tablet 60 mg #[id number] Admin Amount: 2 Tab (2 x 30 mg Tab) Ordered Dose: 60 mg Route: Oral Freq: DAILY Start Date: 03/25/19 Administration times (back 96 hours, ahead 96 hours): 03/25/19: 03/26/19: 89903/27/19: 89903/28/19: 89903/29/19: 899 ---heparin (porcine) injection 5,000 Units #[id number] Admin Amount: 1 mL = 5,000 Units of 5,000 Units/mL Ordered Dose: 5,000 Units Ro manzanita: SubCUTAneous Freq: EVERY 12 HOURS Start Date: 03/25/19 Administration times (back 96 hours, ahead 96 hours): 03/25/19: 0849GI 192403/26/19: 72403/27/19: 72403/28/19: 72403/29/19: 724Gabe Evelio MR#: [id number] * Rm: 341-02Ht: Wt: 120 lb Code: Prior Iso:Diagnosis:Acute hypoxemic respiratory failure (HCC) [J96.01]Allerg ies: No Known Allergies -------- Current as of: 03/25/1946 GI=Given IC=IV Complet ed CT=Missed NB=New Bag --lamoTRIgine (LaMICtal) tablet 50 mg # [id number] Admin Amount: 2 Tab (2 x 25 mg Tab) Ordered Dose: 50 mg Route: Per G Tube Freq: 2 TIMES DAILY Start Date: 03/25/19 Administration times (back 96 hours, ahead 96 hours): : 89903/26/19: 89903/27/19: 89903/28/19: 89903/29/19: 899 ---valproic acid (as sodium salt) (DEPAKENE) 250 mg/5 mL (5 mL) oral so*#[id number] Admin Amount: 15 mL = 750 mg of 250 mg/5 mL Ordered Dose: 750 mg Route: Per G Tube Freq: EVERY 12 HOURS Start Date: 03/25/19 Administration times (back 96 hours, [facility] ad 96 hours): 03/25/19: 209903/26/19: 89903/27/19: 89903/28/19: 89903/29/19: 899 ---methylPREDNISolone (PF) (SOLU-MEDROL) injection 40 mg #[id number] Admin Amount: 1 mL = 40 mg of 40 mg/mL Ordered Dose: 40 mg Route: IntraVENo us Freq: EVERY 6 HOURS Start Date: 03/25/19 Administration times (back 96 hours, ahe ad 96 hours): 03/25/19: 0849GI 1199 1800 03/26/19: 59903/27/19: 59903/28/19: 59903/29/19: 599 ---0.9% sodium chloride infusion #[id number] Ordered Dose: 70 mL/hr Route: IntraVENous Freq: CONTINUOUS Start Date: 03/25/19 Rate: 70 mL/hr Duration: Administration times (back 96 hours, ahead 96 hours): 03/25/19: 0747BriankristoferEvelio herrera MR#: [id number] * Rm: 341-02Ht: Wt: 120 lb Code: Prior Iso:Diagnosis:Acute hypoxemic respirator y failure (HCC) [J96.01]Allergies: No Known Allergies -------- Current as of: 03/25/19 0946 GI=Given IC=IV Complet ed CT=Missed NB=New Bag --multivit-folic acid-herbal 275 (WELLESSE PLUS) oral liquid 30 mL #[id number] Admin Amount: 30 mL Ordered Dose: 30 mL Route: Per G Tube Freq: DAILY Start Date: 03/25/19 Administration times (back 96 hours, ahead 96 hours): 03/25/19: 55 : 0900 03/27/19: 0903/28/19: 0903/29/19: 0900 ---ALPRAZolam (XANAX) tablet 0.25 mg #[id number] Admin Amount: 1 Tab (1 x 0.25 mg Tab) Ordered Dose: 0.25 mg Route: Per G Tub e Freq: EVERY EVENING Start Date: 03/25/19 Administration times (back 96 hours, ahe ad 96 hours): 03/25/19: 1800 03/26/19: 1800 03/27/19: 1800 03/28/19: 1800 ---cefepime (MAXIPIME) 1 g in 0.9% sodium chloride ( MBP/ADV) 50 mL MBP #[id number] Admin Amount: 1 g Ordered Dose: 1 g Route: IntraVENous Dg q: EVERY 8 HOURS Start Date: 03/25/19 Rate: 100 mL/hr Duration: 30 Minutes Adm inistration times (back 96 hours, ahead 96 hours): 03/25/19: 1500 2300 03/26/19: 0700 1500 2300 : 0700 1500 2300 03/28/19: 0700 1500 2300 03/29/19: 0700 ED [place] rojas OP Medicationsheparin sodium,porcine (HEPARIN, PORCINE,) 5,000 unit/mL injectionSi mL by SubCUTAneou s route every twelve (12) hours every twelve (12) hours.Dispense Amount:10 mLStart Date:03/17/2019End Date :Doc. Provider: Mili Hills DOmultivitamin (MULTI-DELYN, WELLESSE) liqdSi mL by Per G Tube route daily.D ispense Amount:1 BottleStart Date:03/17/2019End Date:Doc. Provider: Mili Hills DOacetaminophen (TYLENO L) 32MG/ML soln solutionSig:Take 20.3 mL by mouth every four (4) hours as needed for Pain or Fever.Dispense Norma unt:500 mLStart Date:03/17/2019End Date:Doc. Provider: Mili Hills DOvalproic acid, as sodium salt, (DEPAKE NE) 250 mg/5 mL (5 mL) soln oral solutionSi mg by Per G Tube route every twelve (12) hours.Dispense Amount: Start Date:End Date:Doc. Provider: Edie Floresacetylcysteine (MUCOMYST) 100 mg/mL (10 %) nebulizer so lutionSig:Take 4 mL by inhalation two (2) times a day.Dispense Amount:Start Date:End Date:Doc. Provider : Edie Floresomeprazole (PRILOSEC) 2 mg/mL susp 2 mg/mL oral suspension (compounded)(Status: Disconti nued)Si mg by Per G Tube route daily.Dispense Amount:Start Date:End Date:03/25/2019Doc. Provider: Edie Floresclorazepate (TRANXENE) 3.75 mg tabletSi Tab by Per G Tube route nightly. Max Daily Amount: 3.75 mg .Dispense Amount:30 TabStart Date:12/30/2018End Date:Doc. Provider: Mili Hills DOcinacalcet (SENSIPAR) 30 mg tabletSig:Take 2 Tabs by mouth daily.Patient taking differently: 30 mg daily. Via G tubeDispense Amount:6 0 TabStart Date:12/30/2018End Date:Doc. Provider: Mili Hills DOlamoTRIgine (LAMICTAL) 25 mg tabletSig :2 Tabs by Per G Tube route two (2) times a day.Dispense Amount:60 TabStart Date:12/30/2018End Date:Doc. Pro vider: Mili Hills DOalbuterol- ipratropium (DUO-NEB) 2.5 mg-0.5 mg/3 ml nebuSi mL by Nebulization rou te every six (6) hours. Every 6 hours while awakePatient taking differently: 3 mL by Nebulization route every four (4) hours as needed. Every 6 hours while awakeDispense Amount:30 Nebu leStart Date:12/30/2018End Date:Doc. Provider: Mili Hills DObudesonide (PULMICORT) 0.5 mg/2 mL nbs pSi mL by Nebulization route two (2) times a day.Dispense Amount:60 EachStart Date:12/30/2018End Date:Doc. Pr ovider: Mili Hills DO ED Prescriptions None on FileFollow-up InformationNone Name Value Range Interpretation Code Description Data [facility] rce(s) Supporting Document(s ) ID Date Data Source [id number] 03/25/2019 09:14:25 AM [facility] Patient peg tube unable able to flush. [place] Hills paged regarding tube. PriscillaRn given report on patient coming to the un it. Vss. Name Value Range Interpretation Code Description Data [facility] Supporting Document(s ) ID Date Data Source [id number] 03/25/2019 08:00:41 AM [facility] Pt. Admitted to T3 for hypoxemia. Name Value Range Interpretation Code Description Data [facility] rce(s) Supporting Document(s ) ID Date Data Source [id number] 03/25/2019 07:35:22 AM [facility] CHEST one viewHISTORY: Fever. Reflux. Ga strostomy.COMPARISON: 03/11/2019.There is a poor inspiratory effort which compromise s this interpretation. Arepeat study is suggested. There is discoid atelectasis and/or left lower lobe infiltrate.There is nogross evidence of congestion, other in filtrates, effusions or pneumothorax.IMPRESSION: Possible left l ower lobe infiltrate. Poor inspiratory effort. Signing date/time: 03/25/2019 7:35 AMSigned by: LIONEL LOCKHART Name Value Range Interpretation Code Description Data [facility] rce(s) Supporting Document(s ) ID Date Data Source [id number] 03/25/2019 07:21:21 AM [facility] Bedside and Verbal shift change report carol Mora RN (oncoming nurse) Morgan RN (offgoing nurse). Report included the following information SBAR,ED Summary, MAR and Recent Results. Name Value Range Interpretation Code Description Data [facility] rce(s) Supporting Document(s ) ID Date Data Source [id number] 03/25/2019 12:01:59 PM EST [facility] Name Value Range Interpretation Description Data Sup porting Code Source(s) Document(s ) Cortisol 24.7 4.3-22.4 Above high normal [facility] - Good [Mass/volume ug/dL Taoist ] in Serum Hospital or Plasma --AM peak specimen ID Date Data Source [id number] 03/25/2019 07:48:48 AM EST [facility] Name Value Range Interpretation Description Data Sup porting Code Source(s) Document(s ) Lactate 1.9 0.4-2.0 [facility] - Good [Moles/volu MMOL/L [facility]] in Hospital Serum or Plasma ID Date Data Source [id number] 03/25/2019 05:02:01 AM EST [facility] Name Value Range Interpretation Description Data Sup porting Code Source(s) Document(s ) Color of Urine YEL [facility] - [facility] Appearance of CLEAR [facility] - Urine [facility] Specific gravity 1.020 1.003-1. [facility] - of Urine by 030 [facility] Refractometry [facility] pH of Urine by 8.5 4.6-8.0 Above high normal [facility] - Test strip [facility] Protein NEG [facility] - [Mass/volume] in Good Urine by Test [facility] Glucose NEG [facility] - [Mass/volume] in Good Urine by Taoist Automated test [facility] strip Ketones NEG [facility] - [Presence] in Good Urine by [facility] test [facility] strip Bilirubin.total NEG [facility] - [Presence] in Good Urine [facility] Hemoglobin NEG [facility] - [Presence] in Good Urine by Test [facility] Hospital Urobilinogen 1.0 0.2-1.0 [facility] - [Presence] in EU/dL Good Urine by Taoist Automated test Hospital strip Nitrite NEG [facility] - [Presence] in Good Urine by Taoist Automated test Hospital strip Leukocyte NEG [facility] - esterase Good [Presence] in Taoist Urine by Hospital Automated test strip ID Date Data Source [id number] 03/25/2019 04:31:21 AM EST [facility] - G ood [facility] Name Value Range Interpretation Description Data Sup porting Code Source(s) Document(s ) pH of Arterial 7.43 7.35-7.4 [facility] - Good blood 5 [facility] Carbon dioxide 53 mmHg 32-48 Above high normal [facility] - Good [Partial Taoist pressure] in Hospital Arterial blood Oxygen 86 mmHg 83-108 [facility] - Good [Partial Taoist pressure] in Hospital Arterial blood Carbon 37 19-24 Above high normal [facility] - Good dioxide, total mmol/L Taoist [Moles/volume] [facility] in Arterial blood Bicarbonate 35 21-28 Above high normal [facility] - Go od [Moles/volume] mmol/L Taoist in Arterial Hospital blood Oxygen 99 % 94-98 Above high normal [facility] - Good saturation in [facility] Base excess in 9.1 0-3 Above high normal [facility] - Good Arterial blood mmol/L Taoist by calculation Hospital Body site [facility] - Good [facility] Arterial [facility] - Good patency Wrist Taoist artery --pre Hospital arterial puncture Oxygen gas [facility] - Good flow Oxygen [facility] system Oxygen/Inspire 100.0 % [facility] - Good d gas [facility] Respiratory Hospital system --on ventilator Ventilation [facility] - Good mode Taoist [Identifier] [facility] Ventilator PEEP 7 [facility] - Good Respiratory [facility] Pressure 14 [facility] - Good support [facility] Hospital Ventilator Respiratory 15 [facility] - Good rate [facility] Service [address]341 [facility] - Good comment [facility] ID Date Data Source [id number] 03/25/2019 03:23:12 AM EST [facility] RT at the bedside placing pt on Bipap Name Value Range Interpretation Code Description Data Harriett rce(s) Supporting Document(s ) ID Date Data Source [id number] 03/25/2019 03:22:31 AM EST [facility] MD aware of Spo2, per MD have pt placed on Bipap, RT aware. Name Value Range Interpretation Code Description Data Harriett rce(s) Supporting Document(s ) ID Date Data Source [id number] 03/25/2019 01:47:07 PM EST [facility] Name Value Range Interpretation Description Data Sup porting Code Source(s) Document(s ) Urate 3.8 mg/dL 3.5-7.2 [facility] - [facility] [Mass/volu [facility]] in Hospital Serum or Plasma ID Date Data Source [id number] 03/25/2019 01:47:07 PM [facility] Name Value Range Interpretation Description Data Sup porting Code Source(s) Document(s ) NOLOINC 2.640 0.360-3.7 [facility] - Good uIU/mL [address] [place] [address] This assay result should be used in conj unction with information available from clinical evaluation and other diagnostic procedures. 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 Serum or MOSM/kg Taoist Plasma H2O Hospital ID Date Data Source [id number] 03/25/2019 03:54:54 AM EST [facility] Name Value Range Interpretation Description Data Sup porting Code Source(s) Document(s ) Lactate 2.0 0.4-2.0 [facility] - Good [Moles/volu MMOL/L [facility]] in Hospital Serum or Plasma ID Date Data Source [id number] 03/25/2019 03:51:51 AM EST [facility] - Good [facility] Name Value Range Interpretation Description Data Sup porting Code Source(s) Document(s ) Sodium 135 136-145 Below low normal [facility] - Good [Moles/volume] mmol/L Taoist in Serum or Hospital Plasma Potassium 3.5 3.5-5.1 [facility] - Good [Moles/volume] mmol/L Taoist in Serum or Hospital Plasma Chloride 93 98-107 Below low normal [facility] - Good [Moles/volume] mmol/L Taoist in Serum or Hospital Plasma Carbon 39 21-32 Above high normal [facility] - Good dioxide, total mmol/L Taoist [Moles/volume] Hospital in Serum or Plasma Anion gap in 6 mmol/L 10-20 Below low normal [facility] - Go od Serum or Taoist Plasma Hospital Glucose 95 mg/dL 74-106 [facility] - Good [Mass/volume] Taoist in Serum or Hospital Plasma Urea nitrogen 11 mg/dL 7-18 [facility] - Good [Mass/volume] Taoist in Serum or Hospital Plasma Creatinine 0.48 0.70-1.3 Below low normal [facility] - Good [Mass/volume] mg/dL 0 Taoist in Serum or Hospital Plasma Glomerular >60 [facility] - Good filtration Taoist rate/1.73 sq M Hospital predicted among blacks [Volume Rate/Area] in Serum or Plasma by Creatinine-bas ed formula (MDRD) Glomerular >60 [facility] - Good filtration Taoist rate/1.73 sq M Hospital predicted among non-blacks [Volume Rate/Area] in Serum or Plasma by Creatinine-bas ed formula (MDRD) (NOTE)Estimated GFR is calculated using the Modification of Diet in RenalDisease (MDRD) Study equation, reported for both Americans(GFRAA) and non- Americans (GFRNA), and normalized to 1.7 [id number] surface area. The physician must decide which value applies tothe patient . The MDRD study equation should only be used inindividuals age 18 or older. It has no t been validated for thefollowing: women, patients with serious comorbid co nditions,or on certain medications, or persons with extremes of body size,muscl e mass, or nutritional status. Calcium [Mass/volume] in 9.6 mg/dL 8.5-10.1 [facility] - Good Serum or Plasma [facility] ital Bilirubin.total 0.3 mg/dL 0.2-1.0 [facility] - Good [Mass/volume] in Serum or [facility] Plasma Alanine aminotransferase 15 U/L 13-61 [facility] - Good [Enzymatic activity/volume] [facility] in Serum or Plasma Aspartate aminotransferase 11 U/L 15-37 Below low normal [facility] - Good [Enzymatic activity/volume] [facility] in Serum or Plasma by With P-5'-P Alkaline phosphatase 83 U/L 45-117 [facility] - G ood [Enzymatic activity/volume] [facility] in Serum or Plasma Protein [Mass/volume] in 7.1 g/dL 6.4-8.2 [facility] - Good Serum or Plasma [facility] ital Albumin [Mass/volume] in 2.9 g/dL 3.5-4.7 Below low normal [facility] - Good Serum or Plasma by [facility] ospital Bromocresol purple (BCP) dye binding method Globulin [Mass/volume] in 4.2 g/dL 1.7-4.7 [facility] - Good Serum by calculation [facility] Albumin/Globulin [Mass 0.7 0.7-2.8 [facility] - Good Ratio] in Serum or Plasma [facility] ID Date Data Source [id number] 03/25/2019 03:36:36 AM EST [facility] - Good [facility] Name Value Range Interpretation Description Data Sup porting Code Source(s) Document(s ) Leukocytes 18.8 4.8-10.6 Above high normal [facility] - [#/volume] in K/uL Good Blood by Taoist Automated count Hospital Erythrocytes 4.30 4.70-6.0 Below low normal [facility] - [#/volume] in M/uL 0 Good Blood by Taoist Automated count Hospital Hemoglobin 13.5 14.0-18. Below low normal [facility] - [Mass/volume] in g/dL 0 Good Blood [facility] Hematocrit 42.0 % 42.0-52. [facility] - [Volume 0 Good Fraction] of Taoist Blood by Hospital Automated count Erythrocyte mean 97.7 FL 81.0-94. Above high normal [facility] - corpuscular 0 Good volume [Entitic Taoist volume] by Hospital Automated count Erythrocyte mean 31.4 PG 27.0-35. [facility] - corpuscular 0 [facility] hemoglobin Taoist [Entitic mass] [facility] by Automated count Erythrocyte mean 32.1 30.7-37. [facility] - corpuscular g/dL 3 [facility] hemoglobin Taoist concentration [facility] [Mass/volume] by Automated count Erythrocyte 16.1 % 11.5-14. Above high normal [facility] - distribution 0 Good width [Ratio] by Taoist Automated count Hospital Platelets 365 K/uL 130-400 [facility] - [#/volume] in [facility] Blood by Taoist Automated count Hospital Platelet mean 9.5 FL 9.2-11.8 [facility] - volume [Entitic Good volume] in [facility] Automated Hospital count Segmented 80 % 48.0-72. Above high normal [facility] - neutrophils/100 0 [facility] leukocytes in [facility] Lymphocytes/100 13 % 18.0-40. Below low normal [facility] - leukocytes in 0 [facility] Monocytes/100 7 % 2.0-12.0 [facility] - leukocytes in [facility] Eosinophils/100 0 % 0.0-7.0 [facility] - leukocytes in [facility] Basophils/100 0 % 0.0-3.0 [facility] - leukocytes in [facility] Segmented 15.0 1.5-6.6 Above high normal [facility] - neutrophils K/UL Good [#/volume] in [facility] Lymphocytes 2.5 K/UL 1.5-3.5 [facility] - [#/volume] in [facility] Monocytes 1.3 K/UL 0.0-1.0 Above high normal [facility] - [#/volume] in [facility] Eosinophils 0.0 K/UL 0.0-0.7 [facility] - [#/volume] in [facility] Basophils 0.0 K/UL 0.0-0.1 [facility] - [#/volume] in [facility] Differential [facility] - cell count [facility] method [facility] Immature 0 % 0.0-2.0 [facility] - granulocytes/100 Good leukocytes in Taoist Blood by Hospital Automated count ID Date Data Source [id number] 03/30/2019 06:20:58 AM EST [facility] Name Value Range Interpretation Description Data Sup porting Code Source(s) Document(s ) Service comment [facility] Bacteria [facility] - Good identified [facility] specimen by Culture ID Date Data Source [id number] 03/30/2019 06:20:57 AM EST [facility] Name Value Range Interpretation Description Data Sup porting Code Source(s) Document(s ) Service comment [facility] Bacteria [facility] - Good identified [facility] specimen by Culture ID Date Data Source [id number] 03/25/2019 02:42:38 AM [facility] Sent from [facility] with difficulty breathing. Duoneb given byEMS with improvement Name Value Range Interpretation Code Description Data Harriett rce(s) Supporting Document(s ) ID Date Data Source [id number] 03/24/2019 08:52:56 PM [facility] The history is provided by the EMS goo brandy. 4:11 AM: Evelio Carlin is a 68 y.o. male with history of COPD, pneumonia,pul monary embolisms, and GERD who presents to the Emergency Department via EMSwith fev er, low oxygen saturation, and pneumonia as per EMS. 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 No pertinent family history.So cial HistorySocioeconomic History Marital status: SINGLE Spouse name: Not on file Number of children: Not on file Years of education: Not on file Highest educatio n level: Not on fileOccupational History Not on fileSocial Needs Financial resource strain: Not on file Food insecurity: Worry: Not on file Inability: Not on file Tra nsportation needs: Medical: Not on file Non-medical: Not on fileTobacco Use Smo wanda status: Never Smoker Smokeless tobacco: Never UsedSubstance and Sexual Activity Alcohol use: No Drug use: No Sexual activity: Not on fileLifestyle Physical activity: Days per week: Not on file Minutes per session: Not on file Stress : Not on fileRelationships Social connections: Talks on phone: Not on yoshi e Gets together: Not on file Attends quaker service: Not on file Active m ember of club or organization: Not on file Attends meetings of clubs or organizatio ns: Not on file Relationship status: Not on file Intimate partner violence: Fear o f current or ex partner: Not on file Emotionally abused: Not on file Physica lly abused: Not on file Forced sexual activity: Not on fileOther Topics Concer n Service Not Asked Blood Transfusions Not Asked Caffeine Concern Not Asked Occupational Exposure Not Asked Hobby Hazards Not Asked Sleep Concern N ot Asked Stress Concern Not Asked Weight Concern Not Asked Special Diet Not Aske d Back Care Not Asked Exercise Not Asked Bike Helmet Not Asked Seat Belt Not Ask ed Self-Exams Not AskedSocial History Narrative Not on fileALLERGIES: Patient has no known allergies.Review of SystemsUnable to perform ROS: Patient no nverbalVitals: 03/11/19 0500 03/11/19 0530 03/11/19 0600 03/11/19 0716BP: 118/67 10 0/63 103/53Pulse: (!) 103 (!) 101 95Resp: (!) 38 (!) 31 (!) 39Temp: 99.2 F (37.3 C)SpO2: 92% 91% 94%Weight:Height: Pulse oximetry at bedside is 93 %, demonstrati ng no clinically significanthypoxia.Physical ExamVitals signs and nursing note review ed.Constitutional: General: He is not in acute distress. Appearance: He is well -developed. Comments: Patient is contracted.HENT: Head: Normocephalic a nd atraumatic.Eyes: Pupils: Pupils are equal, round, and reactive to light.Neck : Musculoskeletal: Neck supple. Vascular: No JVD.Cardiovascular: Rate and Rhythm : Normal rate and regular rhythm. Heart sounds: Normal heart sounds.Pulmonary: Effort: Pulmonary effort is normal. No respiratory distress. Breath sounds: N ormal breath sounds. No wheezing or rales. Comments: Right sided crackles.Abdominal : General: There is no distension. Palpations: Abdomen is soft. Tendernes s: There is no tenderness. There is no guarding or rebound.Musculoskeletal: Nor mal range of motion. General: No tenderness.Skin: General: Skin is warm and dry.Neurological: Comments: Patient is nonverbal.MDMNumber of Diagnoses or Octavia gement OptionsPneumonia of left lower lobe due to infectious organism (HCC):Diagnos is management comments: My initial impression is that of nursing homepatient sent for presumed pneumonia. Patient has audible respiratory cracklesand rhonchi. We will check labs and x-ray, consider starting antibiotics, andadmit for further workup and treatment.Edouard Salazar Charles A, MD, reviewed the patient's pa st history, allergies andhome medications as documented in the nursing chart.Labs:Rec ent Results (from the past 12 hour(s))EKG, 12 LEAD, INITIAL Collection Time: 03/11/19 4:09 AMResult Value Ref Range Ventricular Rate 104 BPM Atrial Rate 104 BPM P-R Int erval 134 ms QRS Duration 85 ms Q-T Interval 299 ms QTC Calculation (Bezet) 393 ms Ca lculated P [place] 63 degrees Calculated R [place] 17 degrees Calculated T [place] 6 degrees D iagnosis Sinus tachycardiaBaseline wander in lead(s) [id number], BLOOD Collection Time : 03/11/19 4:14 AMResult Value Ref Range Special Requests: NO SPECIAL REQUESTS Cu lture result: NO GROWTH AFTER 1 HOURCULTURE, BLOOD Collection Time: 03/11/19 4:14 AM Result Value Ref Range Special Requests: NO SPECIAL REQUESTS Culture result: NO GROW TH AFTER 1 HOURLACTIC ACID Collection Time: 03/11/19 4:14 AMResult Value Ref Range Lactic acid 1.6 0.4 - 2.0 MMOL/LCBC WITH AUTOMATED DIFF Collection Time: 03/11/19 4:14 AMResult Value Ref Range WBC 18.6 (H) 4.8 - 10.6 K/uL RBC 4.19 (L) 4.70 - 6.00 M/uL HGB 13.4 (L) 14.0 - 18.0 g/dL HCT 41.2 (L) 42.0 - 52.0 % MCV 98.3 (H) 81.0 - 94 .0 FL MCH 32.0 27.0 - 35.0 PG MCHC 32.5 30.7 - 37.3 g/dL RDW 15.9 (H) 11.5 - 14.0 % P LATELET 263 130 - 400 K/uL MPV 9.2 9.2 - 11.8 FL NEUTROPHILS 81 (H) 48.0 - 72.0 % LYMP HOCYTES 9 (L) 18.0 - 40.0 % MONOCYTES 10 2.0 - 12.0 % EOSINOPHILS 0 0.0 - 7.0 % BASOP HILS 0 0.0 - 3.0 % ABS. NEUTROPHILS 14.9 (H) 1.5 - 6.6 K/UL ABS. LYMPHOCYTES 1.7 1.5 - 3.5 K/UL ABS. MONOCYTES 1.8 (H) 0.0 - 1.0 K/UL ABS. EOSINOPHILS 0.0 0.0 - 0.7 K/UL ABS. BASOPHILS 0.0 0.0 - 0.1 K/UL DF AUTOMATED IMMATURE GRANULOCYTES 1 0.0 - 2.0 %METABOLIC PANEL, COMPREHENSIVE Collection Time: 03/11/19 4:14 AMResult Value Ref Range Sodium 132 (L) 136 - 145 mmol/L Potassium 3.9 3.5 - 5.1 mmol/L Ch loride 92 (L) 98 - 107 mmol/L CO2 40 (H) 21 - 32 mmol/L Anion gap 4 (L) 10 - 20 mmol/L Glucose 94 74 - 106 mg/dL BUN 11 7 - 18 mg/dL Creatinine 0.47 (L) 0.70 - 1.30 mg /dL GFR est AA >60 >60 ml/min/1.73m2 GFR est non-AA >60 >60 ml/min/1.73m2 Calcium 9.6 8.5 - 10.1 mg/dL Bilirubin, total 0.3 0.2 - 1.0 mg/dL ALT (SGPT) 11 (L) 13 - 61 U/L AST (SGOT) 7 (L) 15 - 37 U/L Alk. phosphatase 66 45 - 117 U/L Protein, total 6.9 6.4 - 8.2 g/dL Albumin 2.7 (L) 3.5 - 4.7 g/dL Globulin 4.2 1.7 - 4.7 g/dL A-G Ratio 0. 6 (L) 0.7 - 2.8URINALYSIS W/ RFLX MICROSCOPIC Collection Time: 03/11/19 5:10 AMResult Value Ref Range Color YELLOW YEL Appearance CLOUDY (A) CLEAR Specific gravity 1.017 1.003 - 1.030 pH (UA) 8.5 (H) 4.6 - 8.0 Protein TRACE (A) NEG mg/dL Glucose NEGA TIVE NEG mg/dL Ketone NEGATIVE NEG mg/dL Bilirubin NEGATIVE NEG Blood NEGATIVE NEG Urobilinogen 1.0 0.2 - 1.0 EU/dL Nitrites NEGATIVE NEG Leukocyte Esterase NEGATIV E NEG WBC 0-3 0 - 5 /hpf RBC 0-3 0 - 2 /hpf Epithelial cells 0-3 0 - 10 /hpf Bacteri a NONE NONE /hpf Casts NONE NONE /lpf Crystals, urine NONE NONE /LPF4:15 AMEKG :Sinus tachycardia, no significant ST changes, normal axis, normal intervals,n ormal R wave progression. Rate 104Radiology:CXR Results (Last 48 hours ) NoneCT Results (Last 48 hours) NoneED Course:After reviewing the results from the patient's diagnostic workup, my impressionis that of pneumonia. We will admit to the hospitalist/primary care provider forfurther workup and treatment . The patient was informed of the findings and wasagreeable with the management jocelyn n.I have reviewed the following home medications:Prior to Admission medicatio nsMedication Sig Start Date End Date Taking? Authorizing Providercefepime 2 gram 2 g IVPB 2 g by IntraVENous route every eight (8) hours.02/12/19 Christos Lopez MDhepa rin sodium,porcine (HEPARIN, PORCINE,) 5,000 unit/mL injection 1 mL bySubCUTAneous ro manzanita every twelve (12) hours every twelve (12) hours. 02/12/19Christos Lopez MDpantop razole (PROTONIX) 40 mg granules for oral suspension 40 mg by Per NG tuberoute Gabriele ly (before breakfast). 02/13/19 Christos Lopez MDpredniSONE (DELTASONE) 10 mg tab let Take 20 mg by mouth daily. 02/12/19Christos Lopez, MDpredniSONE (D ELTASONE) 10 mg tablet Take 10 mg by mouth daily (with breakfast).02/12/19 Christos Mcmahon, MDmultivitamin (MULTI-DELYN, WELLESSE) liqd 5 mL by Per G Tube route daily.Provider, Historicalvalproic acid, as sodium salt, (DEPAKENE) 250 mg/5 mL (5 m L) soln oral [id number] mg by Per G Tube route every twelve (12) hours. Provid er, Historicalacetylcysteine (MUCOMYST) 100 mg/mL (10 %) nebulizer solution Take 4 m L byinhalation two (2) times a day. Provider, Historicalzinc oxide 10 % topi inez cream Apply to affected area daily. Ribbon around GTsite Provider, Histor icalomeprazole (PRILOSEC) 2 mg/mL susp 2 mg/mL oral suspension (compounded) 40 mg byPer G Tube route daily. Provider, Historicalsillani sulfADIAZINE (SILVADENE ) 1 % topical cream Apply to affected area two(2) times a day. 1 inch ribbon- right edge Provider, Historicalacetaminophen (TYLENOL) 32MG/ML soln solution Take 20. 3 mL by mouth every four(4) hours as needed for Pain or Fever. 01/24/19 Maryam Hills DOinfluenza vaccine 2019-, 65 yrs+,,PF, (FLUZONE HIGH-DOSE) syrg injec tion 0.5mL by IntraMUSCular route PRIOR TO DISCHARGE. 01/24/19 Mili Hills D Ocholestyramine-aspartame (QUESTRAN LIGHT) 4 gram packet Take 1 Packet by mouthtwo (2 ) times a day.Patient taking differently: 4 g two (2) times a day. Via G tube. Mili Barrera DOclorazepate (TRANXENE) 3.75 mg tablet 1 Tab by Per G Tube route nightly. MaxDaily Amount: 3.75 mg. 12/30/18 Mili Hills DOcinacalcet (SENSIPAR) 30 mg tablet Take 2 Tabs by mouth daily.Patient taking differently: 60 mg daily. Via G tube 12/30/18 Reinier, Mlii,DOlamoTRIgine (LAMICTAL) 25 mg t ablet 2 Tabs by Per G Tube route two (2) times aday. 12/30/18 Mili Hills D Oalbuterol-ipratropium (DUO-NEB) 2.5 mg-0.5 mg/3 ml nebu 3 mL by Nebulizationroute e very six (6) hours. Every 6 hours while awake 12/30/18 Mili Hills DObudesonide ( PULMICORT) 0.5 mg/2 mL nbsp 2 mL by Nebulization route two (2) timesa day. Mili Hills DObacitracin 500 unit/gram ointment Apply 1 Packet to aff ected area two (2) timesa day. Indications: minor skin infection due to bacteria, fa cial scabs 12/30/18Mili Hills DOFleischner, Charles A, MD I, Ladarius carter, am serving as a scribe to document services personallyperformed by Jessie Alberto MD based on my observation and theprovider's statements to me.I, Jessie Palacio MD, attest that the person(s) noted above, acting asmy scrib e(s) noted above, has observed my performance of the services and hasdocumented them i n accordance with my direction. I have personally reviewed theabove information and have ordered and reviewed the diagnostic studies, unlessotherwise noted. Name Value Range Interpretation Code Description Data [facility](s) Supporting Document(s ) ID Date Data Source [id number] 03/24/2019 09:31:45 AM [facility] Addendum: Diagnosis of Sepsis was RULED IN. Name Value Range Interpretation Code Description Data [facility] Supporting Document(s ) ID Date Data Source [id number] 03/23/2019 03:24:54 PM [facility] By submitting this query, we are merely seeking further clarification ofdocumentation to accuratelyreflect all conditions that you are monitoring, evaluating, treating or thatextend the hospitalization orutilize additional resources of care. Please utilize your independent clinicaljudgment whenad dressing the question(s) below.Dear Doctor MILI HILLS,The patient's Clinical In dicators include:Pt was admitted with diagnosis of Acute respiratory failure w ith hypercapnia andhypoxia, Possiblepneumonia, likely aspiration, Ac manzanita COPD and Gastric DistentionTemp 100.5- HR 105- RR 35 wbc 18.6 Lactate 2.5Consultan t documented the following information with no mention of thisdiagnosis in yourdocum entation. Please indicate in your next progress note and/or dischargesummary yo uragreement with pre sales technical consultant or provide clarification that this diagnosis is not acurrent condition.Diagnosis: Sepsis Documented by: Dr. Hamilton Location: 03/12 Progress notePLEASE DOCUMENT ANY ADDITIONAL DIAGNOSES AND/OR SPECIFICITY IN THE PROG RESSNOTES AND/OR DISCHARGE SUMMARY. Name Value Range Interpretation Code Description Data [facility](s) Supporting Document(s ) ID Date Data Source [id number] 03/17/2019 10:00:19 PM [facility] Physician Discharge SummaryPatient ID:Lina [id number] y.o.1950dmit date: 03/11/2019Discharge date:Discharge Diagnoses: Principal Diagnosis <principal problem not specified> Active Problems: Pneumonia (11/08/2018) Acute respiratory failure with hypoxia (HCC) (01/10/2019)Consults: Pulmonary/Intensive care and IDHospital Course: Patient who is a 68 yo male who was transferred from [facility] ED with difficulty in breathing, fever, tachypneic and hypoxia with O2 SA Tof 90 % on 4 LPM O2 via nc.He had low grade fever and was tachypneic in the ED. He w as found withLeukocytosis and with respiratory hypercapnia.He had audible r david crackles and rhonchi.Chest XR showed no evidence of acute cardiopulmonary diseas e. Gastric distentionwas present.He has medical history of dysphagia, recurrent aspiration pneumonia, s/p gtconversion to jtube on 02/16/19. Hld, hyperparathyroid, unspecified, seizure,large hiatal hernia, anxiety disorder, personal history of pu lmonary embolus,COPD, GERD, schizophrenia unspecified, kyphosis, parkinsondiseae, severintellectual disabilities and generalized muscle weakness.He was admit mikel with Acute Hypercapneic and Hypoxemic Respiratory Failure,Pneumonia RML and RL L, Acute COPD and Leukocytosis and gastric distention.Also, diag of dysphagia, s/p recent g/t conversion to jtube. Also, diag of kneecontractures, POA, seizure, hyper parathyroid, GERD, hiatal hernia, parkinsonism,anxiety disorder and severe intellectual disabilities.He was placed on BIPAP continuous, his resp status improv ed and was placed on anaerosol mask, and currently on O2 NC with PRN BIPAP. He w as treated with IVzosyn and vancomycin, nebulizers and iv steroids. TF was rest arted andtolerated. Pt was placed on mitts restraint to prevent his pulling off the O2 ,telemetry leads and iv.CT Chest dated 03/14/19 showed RML and RLL pneumonia.Pt respiratory status has gradually improved. At the time of discharge, he isafebrile, his lungs are clear on auscultation and he is comfortable. Suggest PTevaluation and treatment as outpatient for his knee contractures.Disposition: detention care facilityPatient Instructions:Current Discharge Medication ListSTART taking baldo medications Detailsamoxicillin-clavulanate (AUGMENTI N) 875-125 mg per tablet 1 Tab by Per J Tuberoute two (2) times a day for 3 days .Qty: 6 Tab, Refills: 0CONTINUE these medications which have CHANGED Detailshe lili sodium,porcine (HEPARIN, PORCINE,) 5,000 unit/mL injection 1 mL bySubCUTAne ous route every twelve (12) hours every twelve (12) hours.Qty: 10 mL, Refills: 0 multivitamin (MULTI-DELYN, WELLESSE) liqd 5 mL by Per G Tube route daily.Qty: 1 Bunny le, Refills: 1acetaminophen (TYLENOL) 32MG/ML soln solution Take 20.3 mL by mouth ever y four(4) hours as needed for Pain or Fever.Qty: 500 mL, Refills: 0predniSONE 5 mg/5 mL oral soultion 30 mL by Per J Tube route daily for 3 days.Then take 20 ml v ia jtube daily for 3 days, then 10 ml via jtube daily for 3days, then 5ml via jtub e daily for 5 days then dc.Qty: 90 mL, Refills: 0CONTINUE these medications whi have NOT CHANGED Detailsvalproic acid, as sodium salt, (DEPAKENE) 250 mg/5 mL (5 m L) soln oral [id number] mg by Per G Tube route every twelve (12) hours.acetylcyst eine (MUCOMYST) 100 mg/mL (10 %) nebulizer solution Take 4 mL byinhalation two (2) times a day.omeprazole (PRILOSEC) 2 mg/mL susp 2 mg/mL oral suspension (compounded ) 40 mg byPer G Tube route daily.clorazepate (TRANXENE) 3.75 mg tablet 1 Tab by Per G Tube route nightly. MaxDaily Amount: 3.75 mg.Qty: 30 Tab, Refills: 5 Associated Di agnoses: Generalized anxiety disordercinacalcet (SENSIPAR) 30 mg tabl et Take 2 Tabs by mouth daily.Qty: 60 Tab, Refills: 5lamoTRIgine (LAMICTAL) 25 mg t ablet 2 Tabs by Per G Tube route two (2) times aday.Qty: 60 Tab, Refills: 5albute rol-ipratropium (DUO-NEB) 2.5 mg-0.5 mg/3 ml nebu 3 mL by Nebulizationroute every six (6) hours. Every 6 hours while awakeQty: 30 Nebule, Refills: 0budesonide (PULMICORT) 0.5 mg/2 mL nbsp 2 mL by Nebulization route two (2) timesa day.Qty: 60 Each, Refills : 0Activity: PT/OT Eval and TreatDiet: PEG feeding at 50ml/hrFollow-up with Dr Tam on in 1 day for readmission.Signed:Teofilo Gonzalez 20186:19 PM Name Value Range Interpretation Code Description Data [facility] r[facility](s) Supporting Document(s ) ID Date Data Source [id number] 03/17/2019 08:45:18 PM EST [facility] Pt went to [facility] in s table condition with ambulance person. Name Value Range Interpretation Code Description Data [facility] r[facility](s) Supporting Document(s ) ID Date Data Source [id number] 03/17/2019 06:59:12 PM [facility] Pt to be transferred to SNF, report give n to night RN Pravin Banks RN Name Value Range Interpretation Code Description Data [facility] rce(s) Supporting Document(s ) ID Date Data Source [id number] 03/17/2019 06:32:40 PM [facility] SW went to floor to inquire about patien t's scheduled 7:30 PM transport returnto [place] [facility]. Floor RN stated that MD is federica oro on d/c order. SW copied chartincluded YUAN and placed in envelope. Name Value Range Interpretation Code Description Data [facility] rce(s) Supporting Document(s ) ID Date Data Source [id number] 03/17/2019 04:27:29 PM [facility] Care Management InterventionsPCP Verifie d by CM: YesMode of Transport at Discharge: BLS([facility] 7:30pm)Current Suppo rt Network: Nursing FacilityPlan discussed with Pt/Family/Caregiver: YesFreedom of Choice Offered: YesVeteran Resource Information Provided?: RefusedDischarge LocationDischarge Placement: Home([facility]), RN, [place] [facility] Liaison, siri [place], and family, sister Joyce all aware and inagreement with plan of discharge to [facility]. [facility] to transportpatient to [place] today at 7:30pm. Name Value Range Interpretation Code Description Data [facility] Supporting Document(s ) ID Date Data Source [id number] 03/17/2019 12:53:53 PM [facility] PULMONARY/ CCM- Consult NotePatient: Ivelisse Carlin Sex: male DOA: 03/11/2019Date of : [birth year] Age: 68 y.o. LOS: LOS: 6 daysHPI: step down.Evelio Carlin is a 68 y.o. 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 Authoriz ing ProviderpredniSONE 5 mg/5 mL oral soultion Take 30 mg by mouth daily. Roberto s Provider,Historicalvalproic acid, as sodium salt, (DEPAKENE) 250 mg/5 mL (5 mL) soln oral [id number] mg by Per G Tube route every twelve (12) hours. Yes Provider, Historicalacetylcysteine (MUCOMYST) 100 mg/mL (10 %) nebulizer solution Take 4 m L byinhalation two (2) times a day. Yes Provider, Historicalomeprazole (PRILOSEC ) 2 mg/mL susp 2 mg/mL oral suspension (compounded) 40 mg byPer G Tube route da pierre. Yes Provider, Historicalacetaminophen (TYLENOL) 32MG/ML soln solution Take 20. 3 mL by mouth every four(4) hours as needed for Pain or Fever.Patient taking differe ntly: Take 650 mg by mouth every four (4) hours as neededfor Pain or Fever. Was on e time dose for fever 01/24/19 Yes Mili Hills DOclorazepate (TRANXENE) 3.75 m g tablet 1 Tab by Per G Tube route nightly. MaxDaily Amount: 3.75 mg. 12/30/18 Yes Mili Brooks DOcinacalcet (SENSIPAR) 30 mg tablet Take 2 Tabs by mouth daily.Patien t taking differently: 30 mg daily. Via G tube 12/30/18 Yes Mili Hills DOlamoTRIgi ne (LAMICTAL) 25 mg tablet 2 Tabs by Per G Tube route two (2) times aday. 12/30/18 Yes Mili Hills DOalbuterol-ipratropium (DUO-NEB) 2.5 mg-0.5 mg/3 ml nebu 3 mL b y Nebulizationroute every six (6) hours. Every 6 hours while awakePatient taking differently: 3 mL by Nebulization route every four (4) hours asneeded. Every 6 hours w hile awake 12/30/18 Yes Mili Hills DObudesonide (PULMICORT) 0.5 mg/2 mL nbs p 2 mL by Nebulization route two (2) timesa day. 12/30/18 Yes Mili Hills DONo Known AllergiesPast Surgical History:Procedure Laterality Date HX GA STROSTOMY PEG- replaced 11/2018History reviewed. No pertinent family history.So cial HistorySocioeconomic History Marital status: SINGLE Spouse name: Not on file Number of children: Not on file Years of education: Not on file Highest educatio n level: Not on fileTobacco Use Smoking status: Never Smoker Smokeless tobacco: Never UsedSubstance and Sexual Activity Alcohol use: No Drug use: NoReview of S ystemsPertinent items are noted in the History of Present Illness.Physical Exam :Current medications:Current Facility-Administered Medications: met hylPREDNISolone (PF) (SOLU-MEDROL) injection 20 mg, 20 mg, IntraVENous,DAILY, Krystian Monae MD, 20 mg at 03/17/19 0919 acetylcysteine (MUCOMYST) 100 mg/mL (10 %) nebulizer solution 400 mg, 4 mL,Inhalation, BID RT, Krystian Monae MD , 400 mg at 03/17/19 0817 budesonide (PULMICORT) 500 mcg/2 ml nebulizer suspe nsion, 500 mcg,Nebulization, BID RT, Krystian Monae MD, 500 mcg at 03/17/19 0814 mu pirocin (BACTROBAN) 2 % ointment, , Topical, DAILY, Mili Hills DO sodium chlo ride (NS) flush 5-10 mL, 5-10 mL, IntraVENous, PRN, Jessie Neumann MD 0.9% sodium chloride infusion, 50 mL/hr, IntraVENous, CONTINUOUS, Mili Hills DO, Last Rate: 50 mL/hr at 03/16/19 0635, 50 mL/hr at 03/16/19 0635 cinacalcet (SEN SIPAR) tablet 60 mg, 60 mg, Oral, DAILY, Mili Hills DO,60 mg at 03/17/19 09 18 ALPRAZolam (XANAX) tablet 0.25 mg, 0.25 mg, Per G Tube, QHS, Mili Hills DO, 0.25 mg at 03/16/192128 heparin (porcine) injection 5,000 Units, 5,000 Units, SubC UTAneous, Q12H,Mili Hills DO, 5,000 Units at 03/17/19 1219 lamoTRIgine (La MICtal) tablet 50 mg, 50 mg, Per G Tube, BID, Mili Hills DO, 50 mg at 03/17/19 18 multivitamin (ONE A DAY) tablet 1 Tab, 1 Tab, Per G Tube, DAILY, Mili Hills DO, 1 Tab at 03/17/19917 pantoprazole (PROTONIX) granules for oral suspension 40 mg, 40 mg, Per GTube, ACB, Mili Hills DO, 40 mg at 03/17/19917 va lproic acid (as sodium salt) (DEPAKENE) 250 mg/5 mL (5 mL) oral mg, 750 mg, Per G Tube, Q12H, Mili Hills DO, 750 mg at 03/17/19916 acetaminophen (TYLENOL) solution 650 mg, 650 mg, Per G Tube, Q4H PRN, Mili Hills DO albu terol-ipratropium (DUO-NEB) 2.5 MG-0.5 MG/3 ML, 3 mL, Nebulization, [id number] Nihal, MD, 3 mL at 03/17/19 0814 piperacillin-tazobactam (ZOSYN) 3.375 g in 0.9% sodium chloride (MBP/ADV) 100mL MBP, 3.375 g, IntraVENous, Q8H, Natasha Dudley MD, Last Rate: 200 mL/hr at105/18/1817, 3.375 g at 03/17/19 0917 vancomycin (V ANCOCIN) 1,000 mg in 0.9% sodium chloride 250 mL IVPB, 1,000 mg,IntraVENous, Q12H, Natasha Peters MD, Last Rate: 125 mL/hr at 03/17/19 0916,1,000 mg at 03/17/19 0916D ataVisit VitalsBP 141/79 (BP 1 Location: Right arm, BP Patient Position: At rest; Head of bedelevated (Comment degrees))Pulse 78Temp 97.6 F (36.4 C)Resp 22Ht 5' 2" (1.575 m)Wt 54.8 kg (120 lb 14.4 oz)SpO2 98%BMI 22.11 kg/m Intake and Output:Date 03/16/19 07 - 03/17/19 0659 03/17/19 07 - 03/18/19 0659Shift 9423-4635 5233-2878 24 Hour Total 5166-2095 6764-2850 24 Hour TotalINTAKEI.V.(mL/kg/hr) 1050(1.5) 950( 1.4) 2000(1.5) Volume (0.9% sodium chloride infusion) 107 839 6724 Volume (piperaci llin-tazobactam (ZOSYN) 3.375 g in 0.9% sodium chloride(MBP/ADV) 100 mL MBP) 200 100 300 Volume (vancomycin (VANCOCIN) 1,000 mg in 0.9% sodium chloride 250 mL IVPB)2 50 250 500NG/GT 0253 433 1399 Water Flush Volume (mL) (G/J Tube) 340 85 425 Medic ation Volume (G/J Tube) 100 100 200 Intake (ml) (G/J Tube) 600 600 1200Shift Total( mL/kg) 2090(35.2) 1735(31.6) 3825(69.7)OUTPUTUrine(mL/kg/hr) 6150(8.6 ) 150(0.2) 6300(4.8) Urine Voided 3000 3000 Urine Output (mL) (Condom Catheter 02/14 01/01) 3150 150 3300Shift Total(mL/kg) 6150(103.5) 150(2.7) 6300(114.9)NET -406 0 1585 -2475Weight (kg) 59.4 54.8 54.8 54.8 54.8 54.8Pulse OX:SpO2 [place]ings [place] Encounters:03/17/19 98%02/19/19 96%02/18/19 92%01/24/19 93%12/30/18 96%0 11/27/18 91%@LASTSAO2(6)@PHYSICAL EXAM:General: Lethargic,responding.He ad: Normocephalic, without obvious abnormality, atraumatic.Eyes: Conjunct ivae clear, anicteric sclerae. Pupils are equalNose: Nares normal. No drainage or sinus tenderness.Throat: Lips, mucosa, and tongue normal. No ThrushNeck: Supp le, symmetrical, no adenopathy, thyroid: non tender no carotid bruit and no JVD.Back : Symmetric, No CVA tenderness.Lungs: Scattered rhonchi,Chest wall: No tender ness or deformity. No Accessory muscle use.Heart: Regular rate and rhythm, n o murmur, rub or gallop.Abdomen: Soft, non-tender. Not distended. Bowel sounds normal. No massesExtremities: Extremities normal, atraumatic, No cyanosis. No deepthi ma. No clubbingSkin: Texture, turgor normal. No rashes or lesions. Not Jaund icedLymph nodes: Cervical, supraclavicular normal.Psych: Good insight. Not depres sed. Not anxious or agitated.Neurologic: EOMs intact. No facial asymmetry. No aph greg or slurred speech.Most recent labs:Recent Labs 03/15/1907WBC 11.3* 8.6 7.6HGB 14.3 13.9* 12.0*HCT 43.1 42.4 36.6*PLT 277 26 1 236Recent Labs 03/16/1907NA 137 138 139K 4.0 4.1 4.2C L 99 101 101CO2 35* 35* 36*GLU 82 87 118*BUN 12 12 13CREA 0.41* 0.34* 0.39*CA 9.8 9.6 8.7MG 2.2 2.1 2.0PHOS 3.5 2.9 3.1ALB 2.4* 2.3* 2.0*No results for input(s): PH, PC O2, PO2, HCO3, FIO2 in the last 72 hours.ABG:No results for input(s): PH, P CO2, PO2, HCO3, FIO2 in the last 72 hours.Cultures:No results found for: [employer] SLab ResultsComponent Value Date/Time Culture result: NO GROWTH 5 DAYS 03/11/2019 04:1 4 AM Culture result: NO GROWTH 5 DAYS 03/11/2019 04:14 AM Culture result: NO G ROWTH 5 DAYS 02/08/2019 05:19 PM Culture result: NO GROWTH 5 DAYS 02/08/2019 05:0 0 PM Culture result: NO GROWTH 5 DAYS 01/21/2019 11:30 PM Culture result: NO G ROWTH 2 DAYS 01/21/2019 11:15 PM Culture result: NO GROWTH 5 DAYS 01/21/2019 11:0 0 PM Culture result: NO GROWTH 1 DAY 01/10/2019 08:58 AM Culture result: NO G ROWTH 5 DAYS 01/10/2019 07:55 AM Culture result: NO GROWTH 5 DAYS 01/10/2019 07:4 0 AM Culture result: NO GROWTH 5 DAYS 12/29/2018 11:23 AM Culture result: NO G ROWTH 5 DAYS 12/29/2018 11:00 AM Culture result: 10,000 to 50,000 COLONIES/mL KLE BSIELLA PNEUMONIAE (A)12/29/2018 11:00 AM Culture result: 50,000-100,000 COLONIES/ mL PSEUDOMONAS AERUGINOSA (A)12/29/2018 11:00 AM Culture result: (A) 12/29/2018 11:00 AM 10,000 to 50,000 COLONIES/mL STAPHYLOCOCCUS EPIDERMIDIS Culture resul t: NO GROWTH 2 DAYS 12/24/2018 09:45 AM Culture result: NO GROWTH 5 DAYS 019 12:00 PM Culture result: NO GROWTH 5 DAYS 12/23/2018 11:40 AM Culture result: NO G ROWTH 4 DAYS 12/19/2018 12:30 PM Culture result: NO GROWTH 4 DAYS 12/19/2018 12:3 0 PM Culture result: NO GROWTH 1 DAY 12/12/2018 08:04 PM Culture result: NO G ROWTH 5 DAYS 12/12/2018 07:40 PM Culture result: NO GROWTH 5 DAYS 12/12/2018 07:4 0 PM Culture result: NO GROWTH 2 DAYS 11/20/2018 09:00 AM Culture result: NO G ROWTH 5 DAYS 11/07/2018 08:10 PM Culture result: NO GROWTH 5 DAYS 11/07/2018 08:0 0 PMImages:Cta Chest W Or W Wo ContResult Date: 11/08/2018Examination: CTA Chest ? PE angiography History: Hypoxia; rule out pneumoniaversus pulmonary embolism Prior s: None Technique: Low-dose, multiplanar,helical CTA chest was perfor med with bolus IV injection from lung apices tobases. 3D-reformatted images were obt ained and reviewed on a dedicated viewingworkstation and directly supervis ed. Contrast: A total of 71 mL of Isovue-370was administered intravenously for this procedure. Findings: No evidence ofpulmonary embolism is seen. There is d ecreased size of the right hemithorax fromchronic scarring and retraction with mediastinal shift left to right.Additional area of consolidation is seen in the rig ht lower lobe and suggestssuperimposed pneumonia with subsegmental atelectasis. Subsegmental atelectasisis also noted in the left lung base, with pleural parench ymal scarring. Lowlung volumes are seen. No pneumothorax seen. Aorta normal in calib er withoutaneurysm or dissection. Mediastinum no adenopathy. Mediastinal shift is see n inthe left and right as a result of chronic changes in the right hemithorax. Heart shows no chamber enlargement or pericardial effusion. No acute fractures seen in the bony thorax, sternum, manubrium and rib cage. Multiple compressiondefor mities are seen in the mid and lower thoracic spine, with superimposedspondyloarthropa thy. Cannot exclude acute fracture.Impression: No evidence of pul monary embolism Right lower lobe pneumoniasuggested. Incidental scarring and retraction in the right hemithorax fromremote/chronic inflammatory disease and/or trauma. Bibasilar subsegmentalatelectasis. Report Electron ically Signed By: Pawel Zafar M.D. -11/08/2018 12:40 AMXr Chest PortResult D ate: 11/07/2018XR CHEST PORT CLINICAL INDICATION PROVIDED:. "sob." COMPARISON: . 09/26/2015.FINDINGS:. The pericardial/cardiac silhouette is enlarg ed in the transversedimension. There is no pulmonary vascular congestion or interst itial edema.Linear density in the left lung base and faint densities in the right mi d tolower lung likely represent atelectasis. There is no lobar consolidation oreffusi on. There is no pneumothorax.IMPRESSION:. Bilateral lower lung atelectasis. No donna dence of consolidation oreffusion.Assessment/PlanActive Problem s: Pneumonia (11/08/2018) Acute respiratory failure with hypoxia (HCC) (01/10/2019) A cute resp failure combined pneumonia recurrent acute copd exacerbationPLAN,Mo nitoring,bipap prn for resp distress,abx as per id.Steroid nebbipap prn and at night .NebGi /dvt prophylaxis.D/w nursing staff.d/w niece,management discussed.Stella Hamilton Pat 2018The billing code submitted in association with this evalu ation also includes thetime to review patient's prior records, communicate wit h the physician team,obtain corroborating data, and discuss the risk and benefits of the proposedmanagement plan with the patient and their family >30 minutes. Name Value Range Interpretation Code Description Data [facility] rce(s) Supporting Document(s ) ID Date Data Source [id number] 03/17/2019 11:37:22 AM [facility] Bedside and Verbal shift change report g iven to Don Bonilla RN (oncoming nurse)by Yuki Ohara RN (offgoing nurse) . Report included the following information SBAR,Intake/Output, MAR, Recent Results and Cardiac Rhythm SB. Name Value Range Interpretation Code Description Data [facility](s) Supporting Document(s ) ID Date Data Source [id number] 03/17/2019 10:41:17 AM [facility] ID Progress Note03/17/2019Subjective:Siri ent with history of mental retardation,recurrent aspiration pneumon ia wasTransferred from the long-term for fever of 101.2,increase chestcongestion, wheezing and respiratory disrtess.He was febrile to 100.5 on arrivalto the ER wit h elevated wbc of 18,600.Patient is unable to provide history.AfebrileBlood cx remain negativeNon verbal unable to provide historyObjective:Review of Systems: unab le to provideVitals:Patient Vitals for the past 24 hrs: BP Temp Pulse Resp SpO2 Earl t105/18/18 0817 - - - - 95 % -03/17/19 0740 153/80 98.3 F (36.8 C) 67 22 93 % -07/01 0644 - - - - - 54.8 kg (120 lb 14.4 oz)03/17/19 0514 135/78 97.5 F (36.4 C ) 69 22 92 % -03/17/19 0033 - - - - 98 % -03/16/19 2332 145/72 97.8 F (36.6 C) 68 22 93 % -03/16/192052 - - - - 98 % -03/16/192016 156/77 98.1 F (36.7 C) 71 20 93 % -03/16/191999 - - - - 94 % -03/16/19 1544 122/66 98 F (36.7 C) 85 18 94 % -03/16/19 1253 145/69 98.3 F (36.8 C) 75 18 96 % -Tmax: Temp (24hrs), Av F (36.7 C), Min:97.5 F (36.4 C), Max:98.3 F(36.8 C)Physical Exam:Genera l: Lethargic,non verbal on BiPAP cooperative, no distress, appears stated age.Eyes: Conjunctivae/corneas clear. PERRLNeck: Supple, symmetrical, trachea midline, no adenopathyLungs: Bilateral breath sounds with basal crackles..Heart : Regular rate and rhythm, S1, S2 normal, no murmurAbdomen: Soft, non-tender. Bowel sounds normal. No masses, Noorganomegaly.peg+Back: No CVA tender ness.Extremities: Contracted chronic lymphedemaPulses: 2+ and symmetric all e xtremities.Skin: Skin color, texture, turgor normal. No rashes or lesionsLymph nodes: Cervical, supraclavicular, and axillary nodes normal.Neurologic: Non verbal func tional quadriplegia Current Facility-Administered MedicationsMedicat ion Dose Route Frequency methylPREDNISolone (PF) (SOLU-MEDROL) injection 20 mg 20 m g IntraVENous DAILY acetylcysteine (MUCOMYST) 100 mg/mL (10 %) nebulizer so lution 400 mg 4 mLInhalation BID RT budesonide (PULMICORT) 500 mcg/2 ml nebu lizer suspension 500 mcg NebulizationBID RT mupirocin (BACTROBAN) 2 % ointment Top ical DAILY sodium chloride (NS) flush 5-10 mL 5-10 mL IntraVENous PRN 0.9% sodium chloride infusion 50 mL/hr IntraVENous CONTINUOUS cinacalcet (SENSIPAR) tablet 60 mg 60 mg Oral DAILY ALPRAZolam (XANAX) tablet 0.25 mg 0.25 mg Per G Tube QHS heparin (porcine) injection 5,000 Units 5,000 Units SubCUTAneous Q12H lamoTRIgi ne (LaMICtal) tablet 50 mg 50 mg Per G Tube BID multivitamin (ONE A DAY) tablet 1 T ab 1 Tab Per G Tube DAILY pantoprazole (PROTONIX) granules for oral suspension 40 mg 40 mg Per G TubeACB valproic acid (as sodium salt) (DEPAKENE) 250 mg/5 mL (5 m L) oral solution 750mg 750 mg Per G Tube Q12H acetaminophen (TYLENOL) solution 6 50 mg 650 mg Per G Tube Q4H PRN albuterol-ipratropium (DUO-NEB) 2.5 MG-0 .5 MG/3 ML 3 mL Nebulization Q6HWA RT piperacillin-tazobactam (ZOSYN) 3.375 g in 0.9% sodium chloride (MBP/ADV) 100mL MBP 3.375 g IntraVENous Q8H vancomycin (VAN COCIN) 1,000 mg in 0.9% sodium chloride 250 mL IVPB 1,000 mgIntraVENous G30DJaem:Re cent Labs 03/16/1907WBC 11.3* 8.6 7.6HGB 14.3 13 .9* 12.0*PLT 277 261 236BUN 12 12 13CREA 0.41* 0.34* 0.39*Cultures:No results fou nd for: SDESLab ResultsComponent Value Date/Time Culture result: NO GROWTH 5 DA YS 03/11/2019 04:14 AM Culture result: NO GROWTH 5 DAYS 03/11/2019 04:14 AM Cultur e result: NO GROWTH 5 DAYS 02/08/2019 05:19 PMRadiology:No results found.Assessment: Suspect recurrent aspiration pneumonia. Acute COPD exacerbation Acute respirato ry failure. Dysphagia R/o sepsis. Plan:1. Discontinue IV Vancomycin2. Continue IV zosyn3. When ready to be discharged can switch to Augmentin 875 mg BID x 3 more daysPat Gonzalez [id number] AM Name Value Range Interpretation Code Description Data Harriett rce(s) Supporting Document(s ) ID Date Data Source [id number] 03/17/2019 09:34:49 AM EST [facility] YUAN completed. Name Value Range Interpretation Code Description Data Harriett rce(s) Supporting Document(s ) ID Date Data Source [id number] 03/17/2019 08:50:29 AM EST [facility] Progress NotePatient: Evelio Carlin Sex: male DOA: 03/11/2019Date of : 1950 Age: 68 y.o. :[id number]:Reyes Carlin is 68 y.o. male who is awake and alert, wearing O2 NC. RN wasreporting t hat pt pulling off his nasal canula, telemetry leads and IV out. Thept was o bserved attempting to brush off the nasal canula wearing Mitts.Spoke with pt inge uribe today was concerned that the patient was coughing duringher visit today. He was brought to the ED for chest congestion, wheeze, fever, tachypnea, andhypoxia.CXR showed no evidence of acute cardiopulmonary disease. Poor inspiratoryeffort. Gastr ic distention. He was found with leukocytosis and metabolicacidosis.He had audible res piratory crackles and rhonchi on examination.Pt was admitted with encount er diagnosis of Acute respiratory failure withhypercapnia and hypoxia, Possible pn eumonia, likely aspiration, Acute COPD andGastric Distention. Also, diag of D ysphagia s/p jtube, and intellectualdisability.The patient is no n verbal and unable to provide a history.He has medical history of Dysphagia, recurr ent aspiration pneumonia, s/p g/tconversion to jtube on 02/16/19, hyperlipidemia, hy perparathyroid,unspecified,seizure, large hiatal hernia, anxiety disorder, persona l history ofpulmonary embolus,COPD, GERD, Schizophrenia Unspecified, Kyphosis,Park insondisease, Severe intellectual disabilities.and Generalized muscle weak ness. CT Chest dated 03/14/19 showing Worsening right lower lobe infiltrate. S lightworsening of the right middle lobe infiltrate. Improvedd left lung. 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 Pupils are equalNeck: Supple, symmetrical, no adenopathy, no carotid bruit and no JVD.Lungs: Clear to auscultation bilaterally. No Wheezing o r Rhonchi. No rales.Chest wall: No Accessory muscle use.Heart: Regular rate and rhy thm, no murmur, or rub.Abdomen: Peg in place, soft, non-tender. Not distended. Bowel soundsnormal. No massesExtremities: Positive knee contractures, atraumatic, No cyanosis. No edema. NoclubbingSkin: Warm and dry. . No rashes or lesions. N ot JaundicedLymph nodes: Cervical, supraclavicular normal.Psych: Not anxi ous or agitated.Neurologic: EOMs intact. No facial asymmetry. Non verbal, generalize d weakness,Alert and Awake.Intake and Output:Current Shift: No intake/output data recorded.Last three shifts: 03/15 701 - 03/16 1900In: 4015 [I.V.:2705]Out: 615 0 [Urine:6150]Lab/Data Reviewed:Recent Days:Recent Labs 12/02/997076 03/14/1907WBC 8.6 7.6 8.8HGB 13.9* 12.0* 11.8*HCT 42.4 36.6* 35.9*PLT 261 2 36 252Recent Labs 03/15/1907NA 138 139 -- 140K 4.1 4.2 -- 3.6CL 101 101 -- 106CO2 35* 36* 35* 31GLU 87 118* -- 111*BUN 1 2 13 -- 17CREA 0.34* 0.39* -- 0.25*CA 9.6 8.7 -- 8.1*MG 2.1 2.0 -- 1.7PHOS 2.9 3.1 -- --ALB 2.3* 2.0* -- 1.9*TBILI -- -- -- 0.7SGOT -- -- -- 9*ALT -- -- -- 10*Recent Labs 1PH 7.42PCO2 52*PO2 69*HCO3 34*CULTURE, BLOO D [[id number]] (Order [id number])MicrobiologyDate: 03/11/2019 D epartment: [facility] Released By/Authorizing:Jessie Neumann MD (auto-released)Specimen Information: Blood Component Value Flag Ref Range Units Sta tusSpecial Requests: FinalNO SPECIAL REQUESTSCulture result: NO GROWTH 5 DAYS CULTURE, BLOOD [[id number]] (Order [id number])MicrobiologyDate: 03/11/2019 D epartment: [facility] Released By/Authorizing:Jessie Neumann MD (auto-released)Specimen Information: Blood Component Value Flag Ref Range Units Sta tusSpecial Requests: FinalNO SPECIAL REQUESTSCulture result: NO GROWTH [address] Chest Wo ContResult Date: 03/14/2019History: Respiratory difficult y. FINDINGS: CT scanning of the chest wasperformed helically from lung apices to the upper abdomen without intravenouscontrast dural. Sagittal and coronal reconstructed images are submitted.Scanning was performed utilizi ng dose lowering techniques and is compared to theprior study of 01/15/2019. Evaluati on of thoracic vascular structures is limitedwithout intravenous contrast mate rial. There is, however, no definite CTevidence of dissection or focal aneury smal dilatation. Some peripheralcalcification is noted. There is no evidence of any pa thologically enlargedlymph node within the visualized portions of the mediastinum o r axillae. Somenonpathologically enlarged lymph nodes are seen. Again noted is angel vation of theleft hemidiaphragm. A left small pleural effusion is noted as well asatel ectatic change at the left lung base. Patchy opacity at the right lung baseis compati ble with a right basilar infiltrate. There is some patchy opacitywithin the right midd le lobe as well. The right basal infiltrate is greater insize than that seen previou sly. The pleural effusion is smaller. The rightmiddle lobe infiltrate is similar. Limited evaluation of upper abdominalstructures reveals a tube withi n the stomach directed toward the duodenum.Diffuse hypertrophic degenerati ve changes are noted of the thoracic spine. Thereis again noted to be shift of media stinal structures to the right.IMPRESSION: Worsening right lower lobe infiltrate. S light worsening of the rightmiddle lobe infiltrate. Improved left lung.Xr Chest PortResult Date: 03/11/2019CHEST one view HISTORY: Fever. COPD. Reflux. COMPARISON : 02/12/2019. Anadditional view was obtained. A tubular structure overlies the stomach andmidabdomen with some gastric distention and elevation of the left hemidiaphragm. There is a poor inspiratory effort which compromises this interpretation. Arepeat study is suggested. .There is no gross evidence of congestion,infiltrates, effu sions or pneumothorax. Old rib fractures are noted.IMPRESSION: No evidence of acute c ardiopulmonary disease. Poor inspiratoryeffort. Gastric distention.Me dications reviewedCurrent Facility-Administered MedicationsMedicat ion Dose Route Frequency methylPREDNISolone (PF) (SOLU-MEDROL) injection 20 mg 20 m g IntraVENous DAILY acetylcysteine (MUCOMYST) 100 mg/mL (10 %) nebulizer so lution 400 mg 4 mLInhalation BID RT budesonide (PULMICORT) 500 mcg/2 ml nebu lizer suspension 500 mcg NebulizationBID RT mupirocin (BACTROBAN) 2 % ointment Top ical DAILY sodium chloride (NS) flush 5-10 mL 5-10 mL IntraVENous PRN 0.9% sodium chloride infusion 50 mL/hr IntraVENous CONTINUOUS cinacalcet (SENSIPAR) tablet 60 mg 60 mg Oral DAILY ALPRAZolam (XANAX) tablet 0.25 mg 0.25 mg Per G Tube QHS heparin (porcine) injection 5,000 Units 5,000 Units SubCUTAneous Q12H lamoTRIgi ne (LaMICtal) tablet 50 mg 50 mg Per G Tube BID multivitamin (ONE A DAY) tablet 1 T ab 1 Tab Per G Tube DAILY pantoprazole (PROTONIX) granules for oral suspension 40 mg 40 mg Per G TubeACB valproic acid (as sodium salt) (DEPAKENE) 250 mg/5 mL (5 m L) oral solution 750mg 750 mg Per G Tube Q12H acetaminophen (TYLENOL) solution 6 50 mg 650 mg Per G Tube Q4H PRN albuterol-ipratropium (DUO-NEB) 2.5 MG-0 .5 MG/3 ML 3 mL Nebulization Q6HWA RT piperacillin-tazobactam (ZOSYN) 3.375 g in 0.9% sodium chloride (MBP/ADV) 100mL MBP 3.375 g IntraVENous Q8H vancomycin (VAN COCIN) 1,000 mg in 0.9% sodium chloride 250 mL IVPB 1,000 mgIntraVENous [id number] ent/Plan:Hospital Problems Date Reviewed: 03/15/2019 Codes Class Noted POA Ac manzanita respiratory failure with hypoxia (HCC) ICD-10-CM: J96.01ICD-9-CM: 518.81 2018 Unknown Pneumonia ICD-10-CM: J18.9ICD-9-CM: 486 11/08/2018 UnknownAss essment:Acute Respiratory Failure with hypercapnia and hypoxiaPneumonia- RML, R LLAcute COPDLeukocytosisGastric distentionDysphagia S/P recent g/t conve rsion to jtubeSeizureHyperparathyroidGERD/ Large HHParkinsonismAnxiety disorderSeve re intellectual disabilitiesPlan:Humidified O2/ BIPAP per pulmContinue IV vancomycin and zosyn per IDNebulizersTaper iv steroids per pulmStart TFStrict aspiration precau tionsContinue officer captain lamictal, depakote, clorazepate (xanax) and sensiparFollow c ulturesContinue Mitts restraints.Teofilo Gonzalez 2018Time: 1:09 AM Name Value Range Interpretation Code Description Data Harriett rce(s) Supporting Document(s ) ID Date Data Source [id number] 03/17/2019 11:58:49 AM EST [facility] Name Value Range Interpretation Description Data Sup porting Code Source(s) Document(s ) Leukocytes 11.3 4.8-10.6 Above high normal [facility] - [#/volume] in K/uL [facility] Erythrocytes 4.51 4.70-6.0 Below low normal [facility] - [#/volume] in M/uL 0 [facility] Hemoglobin 14.3 14.0-18. [facility] - [Mass/volume] in g/dL 0 [facility] Hematocrit 43.1 % 42.0-52. [facility] - [Volume 0 Good Fraction] of [facility] Blood by Hospital Automated count Erythrocyte mean 95.6 FL 81.0-94. Above high normal [facility] - corpuscular 0 Good volume [Entitic [facility] volume] by Hospital Automated count Erythrocyte mean 31.7 PG 27.0-35. [facility] - corpuscular 0 Good hemoglobin [facility] [Entitic mass] [facility] by Automated count Erythrocyte mean 33.2 30.7-37. [facility] - corpuscular g/dL 3 Good hemoglobin [facility] concentration Hospital [Mass/volume] by Automated count Erythrocyte 15.8 % 11.5-14. Above high normal [facility] - distribution 0 Good width [Ratio] by [facility] Platelets 277 K/uL 130-400 [facility] - [#/volume] in Good Blood by [facility] Platelet mean 9.3 FL 9.2-11.8 [facility] - volume [Entitic Good volume] in Blood [facility] by Automated Hospital count Segmented 64 % 48-72 [facility] - neutrophils/100 Good leukocytes in [facility] Blood by Manual Hospital count Lymphocytes/100 27 % 18-40 [facility] - leukocytes in Good Blood by Manual [facility] count [facility] Monocytes/100 8 % 2-12 [facility] - leukocytes in Good Blood by Manual [facility] count [facility] Myelocytes/100 1 % 0 Above high normal [facility] - leukocytes in Good Blood by Manual [facility] count [facility] Nucleated 1.0 PER 0 Above high normal [facility] - erythrocytes/100 100 WBC Good leukocytes [facility] [Ratio] in Blood Hospital Erythrocyte [facility] - morphology Good finding [facility] [Identifier] in Hospital Blood Platelet [facility] - adequacy Good [Presence] in [facility] Blood by Light Hospital microscopy Differential [facility] - cell count Good method - Blood [facility] ID Date Data Source [id number] 03/17/2019 08:31:22 AM EST [facility] Name Value Range Interpretation Description Data Sup porting Code Source(s) Document(s ) Sodium 137 136-145 [facility] [Moles/volume] mmol/L [facility] in Serum or Hospital Plasma Potassium 4.0 3.5-5.1 [facility] [Moles/volume] mmol/L [facility] in Serum or Hospital Plasma Chloride 99 98-107 [facility] [Moles/volume] mmol/L [facility] in Serum or Hospital Plasma Carbon 35 21-32 Above high normal [facility] dioxide, total mmol/L [facility] [Moles/volume] Hospital in Serum or Plasma Anion gap in 8 mmol/L 10-20 Below low normal [facility] - Go od Serum or [facility] Plasma Hospital Glucose 82 mg/dL 74-106 [facility] [Mass/volume] [facility] in Serum or Hospital Plasma Urea nitrogen 12 mg/dL 7-18 [facility] [Mass/volume] [facility] in Serum or Hospital Plasma Creatinine 0.41 0.70-1.3 Below low normal [facility] [Mass/volume] mg/dL 0 [facility] in Serum or Hospital Plasma Glomerular >60 [facility] filtration [facility] rate/1.73 sq M Hospital predicted among blacks [Volume Rate/Area] in Serum or Plasma by Creatinine-bas ed formula (MDRD) Glomerular >60 [facility] filtration [facility] rate/1.73 sq M Hospital predicted among non-blacks [Volume Rate/Area] in Serum or Plasma by Creatinine-bas ed formula (MDRD) Calcium 9.8 8.5-10.1 [facility] [Mass/volume] mg/dL [facility] in Serum or Hospital Plasma Phosphate 3.5 2.5-4.9 [facility] [Mass/volume] mg/dL [facility] in Serum or Hospital Plasma Albumin 2.4 g/dL 3.5-4.7 Below low normal [facility] [Mass/volume] [facility] in Serum or Hospital Plasma by Bromocresol purple (BCP) dye binding method ID Date Data Source [id number] 03/17/2019 08:31:22 AM EST [facility] Name Value Range Interpretation Description Data Sup porting Code Source(s) Document(s ) Magnesium 2.2 mg/dL 1.6-2.6 [facility] [Mass/volume] [facility] in Serum or Hospital Plasma ID Date Data Source [id number] 03/17/2019 07:27:45 AM [facility] Bedside and Verbal shift change report carol Mirza RN (oncoming nurse) Yves Bonilla RN(offgoing nurse). Report given with SBAR, Kardex, Intake/Output, MAR and RecentResults. Name Value Range Interpretation Code Description Data Harriett rce(s) Supporting Document(s ) ID Date Data Source [id number] 03/17/2019 12:49:27 AM [facility] Problem: Falls - Risk ofGoal: *Absence o f FallsDescriptionDocument Samra Fall Risk and appropriate interventions in the jhon wsheet.Outcome: Progressing Towards GoalNote: Fall Risk Interventions:Mobility Interve ntions: Bed/chair exit alarmMentation Interventions: Door open when patient un attendedMedication Interventions: Bed/chair exit alarmElimination Interventions: Inez l light in reachProblem: Pressure Injury - Risk ofGoal: *Prevention of pressure inj uryDescriptionDocument Buthc Scale and appropriate interventions in the flowshe et.Outcome: Progressing Towards GoalNote: Pressure Injury Interventions:Sensory In terventions: Assess changes in LOCMoisture Interventions: Absorbent underpadsActivi ty Interventions: Pressure redistribution bed/mattress(bed type)Mobility Intervent ions: Pressure redistribution bed/mattress (bed type)Nutrition Interventions: Docum ent food/fluid/supplement intakeFriction and Shear Interventions: Minimize layersProb olu: Patient Education: Go to Patient Education ActivityGoal: Patient/Family E ducationOutcome: Progressing Towards GoalProblem: Patient Education: Go to Pa tient Education ActivityGoal: Patient/Family EducationOutcome: Progressing Towards Go alProblem: Pneumonia: Day 4Goal: Activity/SafetyOutcome: Progressing Towa rds GoalProblem: Pneumonia: Discharge OutcomesGoal: *Demonstrates progressive activityOutcome: Progressing Towards GoalGoal: *Describes follow-up/return vi sits to physiciansOutcome: Progressing Towards GoalGoal: *Tolerating dietOutcom e: Progressing Towards Goal Name Value Range Interpretation Code Description Data Harriett rce(s) Supporting Document(s ) ID Date Data Source [id number] 03/16/2019 07:58:48 PM EST [facility] Progress NoteMASSACHUSET[facility]. ,P.[facility].Krystian Monae MD., F.C.C.P.Stella Hamilton MD., F.C.C.P. [address]W [address] [facility] [address] [place] [id number] [place] [address] [phone]: Evelio Carlin Sex: male DOA: 03/11/2019D ate of : 1950 Age: 68 y.o. LOS: LOS: 5 daysSubjective:.HE IS MUCH MORE AWAKE AND COMFORTABLE TODAY , PATIENT PULLS OFF HISBIPAP. ACUTE R RESPIRATORY DISTRESS HAVE IMPROVED .03.14.2019 CAT SCAN CHEST REVIEWED IMPROVEMENT IN LEFT LUNG INFILTERARTE INCREASED R L L INFILTERATE , RML INFI LTRATE Evelio is a 68 y.o. male who presents from [facility] with medical history ofDysphagia, recurrent aspiration pneumonia, s/p g/t conversion to jtube on02/16/19, hyperlipidemia,hyperparathyroid, unspecified,seizure, large hiatalhernia, anxiety disorder, personal history of pulmonary embolus,COPD, GERD,Schizophren ia, Unspecified,Kyphosis,Parkinson disease, Severe intellectualdisabilities.and Gene ralized muscle weakness.Pt was transferred to the ED; he was noted having chest conges tion and wheezing.Nebulizer treatment given with no improvement. He had visible diff iculty inbreathing. He was found with fever, temp 101.2, tachypneic, and hypoxia with O2SAT of 90 %on 4 LPM O2 via NC. Tylenol was given.In the ED, temp was 99.2 and pt wa s tachypneic.CXR showed No evidence of acute cardiopulmonary disease. Poor inspirator yeffort. Gastric distention.His labs were remarkable for Leukocytosis (19,000) and CO2 of 40. Onexamination pt was found with audible respiratory crackles and rhonchi . Pt isbeing admitted with initial encounter diagnosis of Pneumonia.Pt is non verbal and is unable to participate with his history.[facility], he is lethargic, but easily arousable. Heis wearing NRB mask.IV vancomycin 1gm for one dose, Solu Medrol and IV fluids were ordered earlierthis morning. ABG with a pH 7.46/54/86/38/O2SAT 98 % on FIO2 100 % NRB Mask. 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 No pertinent family history. No Known Allergies Social History Tobacco Use Smoking status: Never Smoker Smokeless tobacco: Never UsedSubstance Use Topics Alcohol use: No History reviewed. No per tinent family history. No Known Allergies Prior to Admission medicationsMed ication Sig Start Date End Date Taking? Authorizing Providercefepime 2 gram 2 g IVPB 2 g by IntraVENous route every eight (8) hours.02/12/19 Christos Lopez MDhe lili sodium,porcine (HEPARIN, PORCINE,) 5,000 unit/mL injection 1 mL bySubCUTAne ous route every twelve (12) hours every twelve (12) hours. 02/12/19 MalLeisa espinozar, MDpantoprazole (PROTONIX) 40 mg granules for oral suspension 40 mg by Pe r NG tuberoute Daily (before breakfast). 02/13/19 Malmacamille, Christos, MDpredniSON E (DELTASONE) 10 mg tablet Take 20 mg by mouth daily. 02/12/19 Malmazada, Christos , MDpredniSONE (DELTASONE) 10 mg tablet Take 10 mg by mouth daily (with breakfast). Leisa Lopezr, MDmultivitamin (MULTI-DELYN, WELLESSE) liqd 5 mL by Per G Tube route daily. Provider, Historicalvalproic acid, as sodium salt, (DEPAKENE) 250 mg/5 mL (5 mL) soln oral mg by Per G Tube route every twelve (12) hours. Provider, Historicalacetylcysteine (MUCOMYST) 100 mg/mL (10 %) nebulizer solution Take 4 mL byinhalation two (2) times a day. Provider, Historicalzinc oxide 10 % topical cream Apply to affected area daily. Rib bon around GTsite Provider, Historicalomeprazole (PRILOSEC) 2 mg/mL susp 2 mg/mL oral suspension (compounded) 40 mg byPer G Tube route daily. Provi bassem, Historicalsilver sulfADIAZINE (SILVADENE) 1 % topical cream Apply to affected area two(2) times a day. 1 inch ribbon- right edge Provider, Histo ricalacetaminophen (TYLENOL) 32MG/ML soln solution Take 20.3 mL by mouth every fou r(4) hours as needed for Pain or Fever. 01/24/19 Mili Hills DOinfluenz a vaccine 2019-20, 65 yrs+,,PF, (FLUZONE HIGH-DOSE) syrg injection 0.5mL by Intra MUSCular route PRIOR TO DISCHARGE. 01/24/19 Mili Hills DOcholestyramine-aspa rtame (QUESTRAN LIGHT) 4 gram packet Take 1 Packet by mouthtwo (2) times a day.Patie nt taking differently: 4 g two (2) times a day. Via G tube. 01/24/19 Reinier, Patricio rley, DOclorazepate (TRANXENE) 3.75 mg tablet 1 Tab by Per G Tube route nightly. MaxDa pierre Amount: 3.75 mg. 12/30/18 Mili Hills DOcinacalcet (SENSIPAR) 30 mg t ablet Take 2 Tabs by mouth daily.Patient taking differently: 60 mg daily. Via G t ube 12/30/18 Mili HillsDOlamoTRIgine (LAMICTAL) 25 mg tablet 2 Tabs by Per G Tube route two (2) times aday. 12/30/18 Mili Hills DOalbuterol-ipratropium (DUO-NEB) 2.5 mg-0.5 mg/3 ml nebu 3 mL by Nebulizationroute every six (6) hours. E very 6 hours while awake 12/30/18 Mili Hills DObudesonide (PULMICORT) 0.5 mg/2 mL nbsp 2 mL by Nebulization route two (2) timesa day. 12/30/18 Mili Hills DObacitracin 500 unit/gram ointment Apply 1 Packet to affected area two (2) timesa day. Indications: minor skin infection due to bacteria, facial scabs 12/30/18 Mili Brooks DO REVIEW OF SYSTEMS: SLIGHTLY MORE AWAKE , NO ROS CANNOT BE DONE General: POSITIVE for fever, chills, sweats, weaknessEyes: negative f or blurred vision, eye pain, loss of vision, diplopiaEar Nose and Throat: negative fo r rhinorrhea, pharyngitis, otalgia, tinnitus,speech or swallowing difficulti esRespiratory: POSITIVE + for cough, sputum production, +SOB,+ wheezing,DAVALOS, pleuritic painCardiology: negative for chest pain, palpitations, orthopnea, PND, todd a,syncopeGastrointestinal: negative for abdominal pain, N/V, dysphagia, change i n bowelhabits, bleedingGenitourinary: negative for frequency, urgency, dysuria , hematuria,incontinence, DISTENDED STOMACH .Muskuloskeletal : negative for arthralg ia, myalgiaHematology: negative for easy bruising, bleeding, lymphadenopathyDerma tological: negative for rash, ulceration, mole change, new lesionEndocrine: negati ve for hot flashes or polydipsiaNeurological: negative for headache, dizziness, confus ion, focal weakness,paresthesia, memory loss, gait disturbancePsychological: negative for anxiety, depression, agitation Objective:Vital Signs:Patient Vitals for the past 24 hrs: BP Temp Pulse Resp SpO2 Jlcksg90/02/19 1544 122/66 98 F (36.7 C) 85 18 94 % -03/16/19 1253 145/69 98.3 F (36.8 C) 75 18 96 % -03/16/19 0754 157/ 81 98.5 F (36.9 C) 71 18 94 % -03/16/19 0436 - - - - - 59.4 kg (131 lb)03/16/19 0411 132/68 97.5 F (36.4 C) 66 18 93 % -03/16/19 0001 129/79 97.1 F (36.2 C) 60 18 95 % -Pulse OX:SpO2 Readings from Last 6 Encounters:03/16/19 94%02/19/19 96%10/01 92%01/24/19 93%12/30/18 96%11/27/18 91%@LASTSAO2(6)@Physical Exam:COMFORTABL E , NON VERBAL General: Alert, cooperative, NO distress, appears stat ed age. Head: Normocephalic, without obvious abnormality, atraumatic. Eyes: Conjunctivae/corneas clear. PERRL, EOMs intact. No se: Nares normal. No drainage or sinus tenderness Throat: Lips, mucos a, and tongue normal Neck: Supple, symmetrical, trachea midline, no adenopathy,thyroid: no enlargement/tenderness/nodules, no carot id bruit and no JVD. Lungs: NO WHEEZING , RALES PERSISTS R M L , R L L toauscultation bilaterally. Chest Wall: No tenderness or deformity. H eart: Regular rate and rhythm, S1, S2 normal, no murmur, click,rub or gallop. Abdomen: Soft, non-tender. Bowel sounds normal. No masses, No organomegaly. Ex tremities: Extremities normal, atraumatic, no cyanosis or edema. Pulses: 4+ bilaterally. Skin: Skin color, texture, turgor normal. No rashes or lesions. Neurologic: CNII-XII intact. No focal motor or sensory deficit.Intake and Output:Last three shifts: 03/15 07 - 03/16 1900In: 4015 [I.V.:2705]Out: 6150 [Urine:6150]Lab Results:Recent Results (from the past 24 hour(s))RENAL FUNCTION PANEL Collection Time: 03/16/19 7:16 AMResult Value Ref Range Sodium 138 136 - 145 mmo l/L Potassium 4.1 3.5 - 5.1 mmol/L Chloride 101 98 - 107 mmol/L CO2 35 (H) 21 - 32 m mol/L Anion gap 6 (L) 10 - 20 mmol/L Glucose 87 74 - 106 mg/dL BUN 12 7 - 18 mg/dL Cr eatinine 0.34 (L) 0.70 - 1.30 mg/dL GFR est AA >60 >60 ml/min/1.73m2 GFR est non-AA >60 >60 ml/min/1.73m2 Calcium 9.6 8.5 - 10.1 mg/dL Phosphorus 2.9 2.5 - 4.9 mg/dL Alb umin 2.3 (L) 3.5 - 4.7 g/dLMAGNESIUM Collection Time: 03/16/19 7:16 AMResult Value Ref Range Magnesium 2.1 1.6 - 2.6 mg/dLCBC WITH AUTOMATED DIFF Collection Time: 03/16/19 7:16 AMResult Value Ref Range WBC 8.6 4.8 - 10.6 K/uL RBC 4.45 (L) 4.7 0 - 6.00 M/uL HGB 13.9 (L) 14.0 - 18.0 g/dL HCT 42.4 42.0 - 52.0 % MCV 95.3 (H) 81.0 - 94.0 FL MCH 31.2 27.0 - 35.0 PG MCHC 32.8 30.7 - 37.3 g/dL RDW 15.6 (H) 11.5 - 14. 0 % PLATELET 261 130 - 400 K/uL MPV 9.4 9.2 - 11.8 FL NEUTROPHILS 70 48 - 72 % LYMPHOC YTES 17 (L) 18 - 40 % MONOCYTES 11 2 - 12 % METAMYELOCYTES 1 (H) 0 % MYELOCYTES 1 (H ) 0 % RBC COMMENTS NORMOCYTIC, NORMOCHROMIC PLATELET ESTIMATE ADEQUATE DF MANUALABG: Recent Labs 931PH 7.42PCO2 52*PO2 69*HCO3 34*Recent Glucose Results:Lab Re sultsComponent Value Date/Time GLU 87 03/16/2019 07:16 AM@LABAPCYTOINTERPRETAT ION@CULTURESAll Micro Results Procedure Component Value Units Date/Time CULTURE, BLOOD [[id number]] Collected: 03/11/19413 Order Status: Completed Specimen: Bloo d Updated: 03/16/19631 Special Requests: NO SPECIAL REQUESTS Culture result: NO GROWTH 5 DAYS CULTURE, BLOOD [[id number]] Collected: 03/11/19413 Order Status: Completed Specimen: Blood Updated: 03/16/19630 Special Requests: NO SPEC IAL REQUESTS Culture result: NO GROWTH 5 DAYSImages:@IMAGESENCORD@Ct Chest Wo Con tResult Date: 03/14/2019History: Respiratory difficulty. FINDINGS: CT scanning of the chest wasperformed helically from lung apices to the upper abdomen without intr avenouscontrast dural. Sagittal and coronal reconstructed images are submitted.Scann ing was performed utilizing dose lowering techniques and is compared to [facility] [place] [facility] of 01/15/2019. Evaluation of thoracic vascular structures is limitedwithout in travenous contrast material. There is, however, no definite CTevidence of disse ction or focal aneurysmal dilatation. Some peripheralcalcification is noted. There is no evidence of any pathologically enlargedlymph node within the visualized portions of the mediastinum or axillae. Somenonpathologically enlarged lymph nod es are seen. Again noted is elevation of theleft hemidiaphragm. A left small pleu ral effusion is noted as well asatelectatic change at the left lung base. Patchy opa city at the right lung baseis compatible with a right basilar infiltrate. There is tamie e patchy opacitywithin the right middle lobe as well. The right basal infiltrate is g reater insize than that seen previously. The pleural effusion is smaller. The rightmi ddle lobe infiltrate is similar. Limited evaluation of upper abdominalstructures reveals a tube within the stomach directed toward the duodenum.Diffuse hypertrophic degenerative changes are noted of the thoracic spine. Thereis again noted to b e shift of mediastinal structures to the right.IMPRESSION: Worsening right lower lobe infiltrate. Slight worsening of the rightmiddle lobe infiltrate. Improved le ft lung.Xr Chest PortResult Date: 03/11/2019CHEST one view HISTORY: Fever. COPD. Reflux. COMPARISON: 02/12/2019. Anadditional view was obtained. A tubula r structure overlies the stomach andmidabdomen with some gastric distenti on and elevation of the left hemidiaphragm.There is a poor inspirator y effort which compromises this interpretation. Arepeat study is suggest ed. .There is no gross evidence of congestion,infiltrates, effusions or pne umothorax. Old rib fractures are noted.IMPRESSION: No evidence of acute c ardiopulmonary disease. Poor inspiratoryeffort. Gastric distention.Me dications:Current Facility-Administered MedicationsMedication Dose Route Frequen cy methylPREDNISolone (PF) (SOLU-MEDROL) injection 20 mg 20 mg IntraVENous Q12H acetylcysteine (MUCOMYST) 100 mg/mL (10 %) nebulizer solution 400 mg 4 mLInhalatio n BID RT budesonide (PULMICORT) 500 mcg/2 ml nebulizer suspension 500 mcg Nebulizati onBID RT mupirocin (BACTROBAN) 2 % ointment Topical DAILY sodium chloride (NS) flu sh 5-10 mL 5-10 mL IntraVENous PRN 0.9% sodium chloride infusion 50 mL/hr Intra VENous CONTINUOUS cinacalcet (SENSIPAR) tablet 60 mg 60 mg Oral DAILY ALPRAZol am (XANAX) tablet 0.25 mg 0.25 mg Per G Tube QHS heparin (porcine) injection 5,000 U nits 5,000 Units SubCUTAneous Q12H lamoTRIgine (LaMICtal) tablet 50 mg 50 mg Per G Tube BID multivitamin (ONE A DAY) tablet 1 Tab 1 Tab Per G Tube DAILY pa ntoprazole (PROTONIX) granules for oral suspension 40 mg 40 mg Per G TubeACB v alproic acid (as sodium salt) (DEPAKENE) 250 mg/5 mL (5 mL) oral solution 750mg 750 mg Per G Tube Q12H acetaminophen (TYLENOL) solution 650 mg 650 mg Per G Tube Q4H P RN albuterol-ipratropium (DUO-NEB) 2.5 MG-0.5 MG/3 ML 3 mL Nebulization Q6HWA RT piperacillin-tazobactam (ZOSYN) 3.375 g in 0.9% sodium chloride (MBP/ADV) 100mL MBP 3.375 g IntraVENous Q8H vancomycin (VANCOCIN) 1,000 mg in 0.9% sodium chlor wade 250 mL IVPB 1,000 mgIntraVENous [id number] Problems: Pneumonia (11/09/19 19) Acute respiratory failure with hypoxia (HCC) (01/10/2019)Assessment:1. ACUTE HY PERCAPNIC WITH HYPOXIC RESPIRATORY FAILURE IMPROVING SLOWLY2. ABG 7.42.PCO2 5 3, PO2 69 ON 3 L O23. POSSIBLE PNEUMONIA R M L , R L L , IMPROVED LEFT LUNG4. AC COPD 5. METABOLIC ENCEPHALOPATHY IMPROVING , HE IS MORE AWAKE6. MENTAL RETARDATION7. DYSPHAGIA8. GASTRIC DISTENTION9. DGALDFWZUHAHO39. CHEST X RAY SHOWS COPD , ELEVATED LEFT HEMIDIAPHRAGM , VOLUME LOSS ?INF. LLL Plan:1. CULTURE BLOOD , URINE , SPUTUM2. CONT WITH ZOSYN AND I V VANCOMYC IN3. DUO NEB Q 4 H4. NEEDS BIPAP SUPPORT FOR VENTILATION AT NIGHT5. DECREASE I V SOLUMEDROL 20 MG Q 2 4 H 6. PUT PEG TO SUCTION TILL GASTRIC DISTENTI ON IS RESOLVED7. I V HYDRATION 8. TRIAL OF 3 L NA O2 DAYS , KEEP SPO2 > 92 %9. REPEAT CBC , BMP IN AM10. HE WILL NEED I V ABX AT [facility] Mireya KnightC.C.PGualbertoMarch 16, 20197:50 PM Name Value Range Interpretation Code Description Data [facility](s) Supporting Document(s ) ID Date Data Source [id number] 03/16/2019 07:26:38 PM [facility] Bedside and Verbal shift change report carol pham to Nelson Bonilla RN (oncoming nurse) Mely KNOX RN (offgoing nurse). Report in cluded the following informationSBAR, Kardex, MAR and Recent Results. Name Value Range Interpretation Code Description Data [facility](s) Supporting Document(s ) ID Date Data Source [id number] 03/16/2019 04:35:04 PM [facility] Care Management InterventionsCurrent Sup port Network: Nursing FacilityPlan discussed with Pt/Family/Caregiver: YesFreedom of Choice Offered: YesVeteran Resource Information Provided?: RefusedDischarge LocationDischarge Placement: Home([place])CASE MANAGEMENT PSYCHOSOCIAL ASSE Jose Carlin Admission Date: 03/11/2019MRN: [id number] of : 1950urrent date: 03/16/2019DISCHARGE PLAN: Patient is a 68-year-old male admitted to [facility] on 03/11/2019 withinitial diagnosis of acut e respiratory failure with hypoxia and pneumonia.Patient profound MRDD. 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 He remains a full code. CM CCLINKD to [facility] and alerted Liaison. CM will follow. Joyce to be notified upondischarge of her brother.Patient Information:Patie nts Preferred Name: ?evelio(evelio)Patient Arrived Via: StretcherTransferred [facility] a [facility] facility: YesInformation Obtained From: Unable to obtainPatient Objects to Receiving Blood: UnknownMRSA Assessment: No Known History of MRSAAuditory Impairment : NonePrior Hospital AdmissionsName of the Hospital(s): [place]Readmit Risk Too lSupport Systems: senior living facilityRelationship with Primary Physic deondre Group: Seen at least one time within thepast 6 monthsPCP: Patricio Hills DOAdmitting Provider: ELIAN Gonzalez [facility] PRODUCTION HELPER: N/APayor: Payor: [place] / Plan[place] PART A A [place] B/ Product Type: Medicare /Secondary Payor: @SECINSGROUPNAME@Acute respira tory failure with hypoxia (HCC) [J96.01]Pneumonia [J18.9]Patient Active Problem ListDiagnosis Code 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 COPD (chronic obstr uctive pulmonary disease) ([facility]) J44.9 Acute respiratory distress R06.03 Pneumonia J 18.9 COPD exacerbation (HCC) J44.1 Sepsis due to undetermined organism (HCC) A41.9 Generalized anxiety disorder F41.1 Acute respiratory failure with hypoxia (HCC) J 96.01 Pneumonia involving right lung J18.9 Hyponatremia E87.1 SOB (shortness of br eath) R06.02 Pressure injury of right heel, stage [address]) L89.612 Leg wound, right, initial encounter S81.801ASocial HistorySubstance and Sexual ActivityAlco hol Use NoNumber of stairs into patient home:DME:Cohabitants:Abuse Screen:Physic al Abuse/Neglect: Patient unable to answerSexual Abuse: Patient unable to an swerVerbal Abuse: Patient unable to answerOther Abuse/Issues: Patient unable to answerINSURANCE INFORMATION: (Verification)Primary Notes:Secondary No tasha:Workmen's Comp Notes:No-Fault Notes:SSD Notes:Un-Insured Notes:[facility] Notes:Current Functioning:Language barriers: Notes:Und erstanding nature/impact of illness: Notes:Ability to participate in plan: No tasha:Realistic Problem solving and planning: Notes:Adequate coping skills: Notes:Reli gious/Cultural barriers: Notes:If unable to assess or not applicable: Notes:Suicide Assessment:Readmit Risk:Support Systems: senior living facilityRelationship terrance Primary Physician Group: Seen at least one time within themest 6 monthsRRAT Total S core: 29Advanced Care Planning:Confirm Advance Directive: NoneDiscussed with th e patient and all questions fully answered. He will call me ifany problems arise. Name Value Range Interpretation Code Description Data Harriett rce(s) Supporting Document(s ) ID Date Data Source [id number] 03/16/2019 03:12:10 PM [facility] Problem: Falls - Risk ofGoal: *Absence o f FallsDescriptionDocument Sarma Fall Risk and appropriate interventions in the jhon wsheet.Outcome: Progressing Towards GoalNote: Fall Risk Interventions:Mobility Interve ntions: Bed/chair exit alarmMentation Interventions: Door open when patient un attendedMedication Interventions: Bed/chair exit alarmElimination Interventions: Inez l light in reachProblem: Pressure Injury - Risk ofGoal: *Prevention of pressure inj uryDescriptionDocument Butch Scale and appropriate interventions in the flowshe et.Outcome: Progressing Towards GoalNote: Pressure Injury Interventions:Sensory In terventions: Assess changes in LOCMoisture Interventions: Absorbent underpadsActivi ty Interventions: Pressure redistribution bed/mattress(bed type)Mobility Intervent ions: Pressure redistribution bed/mattress (bed type),Suspension boots, Float heels , Turn and reposition approx. every twohours(pillow and wedges)Nutrition Int erventions: Document food/fluid/supplement intakeFriction and Shear Interventions: Minimize layers, Lift sheetProblem: Pneumonia: Discharge OutcomesGoal: *Resp iratory status at baselineOutcome: Progressing Towards Goal Name Value Range Interpretation Code Description Data Harriett rce(s) Supporting Document(s ) ID Date Data Source [id number] 03/16/2019 08:31:06 AM EST [facility] ID Progress Note03/16/2019Subjective:Siri ent with history of mental retardation,recurrent aspiration pneumon ia wasTransferred from the long-term for fever of 101.2,increase chestcongestion, wheezing and respiratory disrtess.He was febrile to 100.5 on arrivalto the ER wit h elevated wbc of 18,600.Patient is unable to provide history.AfebrileBlood cx remain negativeNon verbal unable to provide historyObjective:Review of Systems: unab le to provideVitals:Patient Vitals for the past 24 hrs: BP Temp Pulse Resp SpO2 Eral ght105/17/18 0754 157/81 98.5 F (36.9 C) 71 18 94 % -03/16/19 0436 - - - - - 59.4 kg (131 lb)03/16/19 0411 132/68 97.5 F (36.4 C) 66 18 93 % -03/16/19 0001 129/79 97.1 F (36.2 C) 60 18 95 % -03/15/19 1945 131/70 97.5 F (36.4 C) 64 18 94 % -05/03 1620 122/70 97.8 F (36.6 C) 68 18 94 % -03/15/19 1153 111/64 98.6 F (37 C) 69 18 92 % -Tmax: Temp (24hrs), Av.8 F (36.6 C), Min:97.1 F (36.2 C), Max:98 .6 F(37 C)Physical Exam:General: Lethargic,non verbal on BiPAP cooperativ e, no distress, appears statedage.Eyes: Conjunctivae/corneas clear. PERRLNeck: S upple, symmetrical, trachea midline, no adenopathyLungs: Bilateral breath soun ds with basal crackles..Heart: Regular rate and rhythm, S1, S2 normal, no murmurAbdo men: Soft, non-tender. Bowel sounds normal. No masses, Noorganomegaly.peg+Back: N o CVA tenderness.Extremities: Contracted chronic lymphedemaPulses: 2+ and symmetr ic all extremities.Skin: Skin color, texture, turgor normal. No rashes or lesionsLymph nodes: Cervical, supraclavicular, and axillary nodes normal.Neurologic: Non ve rbal functional quadriplegia Current Facility-Administered MedicationsMedicat ion Dose Route Frequency methylPREDNISolone (PF) (SOLU-MEDROL) injection 20 mg 20 m g IntraVENous Q12H acetylcysteine (MUCOMYST) 100 mg/mL (10 %) nebulizer solution 400 mg 4 mLInhalation BID RT budesonide (PULMICORT) 500 mcg/2 ml nebulizer suspe nsion 500 mcg NebulizationBID RT mupirocin (BACTROBAN) 2 % ointment Topical DAILY sodium chloride (NS) flush 5-10 mL 5- 10 mL IntraVENous PRN 0.9% sodium chloride in fusion 50 mL/hr IntraVENous CONTINUOUS cinacalcet (SENSIPAR) tablet 60 mg 60 m g Oral DAILY ALPRAZolam (XANAX) tablet 0.25 mg 0.25 mg Per G Tube QHS heparin (por cine) injection 5,000 Units 5,000 Units SubCUTAneous Q12H lamoTRIgine (LaMICtal ) tablet 50 mg 50 mg Per G Tube BID multivitamin (ONE A DAY) tablet 1 Tab 1 Tab Per G Tube DAILY pantoprazole (PROTONIX) granules for oral suspension 40 mg 40 mg Per G TubeACB valproic acid (as sodium salt) (DEPAKENE) 250 mg/5 mL (5 m L) oral solution 750mg 750 mg Per G Tube Q12H acetaminophen (TYLENOL) solution 6 50 mg 650 mg Per G Tube Q4H PRN albuterol-ipratropium (DUO-NEB) 2.5 MG-0 .5 MG/3 ML 3 mL Nebulization Q6HWA RT piperacillin-tazobactam (ZOSYN) 3.375 g in 0.9% sodium chloride (MBP/ADV) 100mL MBP 3.375 g IntraVENous Q8H vancomycin (VAN COCIN) 1,000 mg in 0.9% sodium chloride 250 mL IVPB 1,000 mgIntraVENous M36FEihw:Re cent Labs 03/15/1907WBC 8.6 7.6 8.8HGB 13.9* 12. 0* 11.8*PLT 261 236 252BUN 12 13 17CREA 0.34* 0.39* 0.25*SGOT -- -- 9*AP -- -- 76TBILI -- -- 0.7Cultures:No results found for: SDESLab ResultsComponent Valu e Date/Time Culture result: NO GROWTH 5 DAYS 03/11/2019 04:14 AM Culture result: NO G ROWTH 5 DAYS 03/11/2019 04:14 AM Culture result: NO GROWTH 5 DAYS 02/08/2019 05:1 9 PMRadiology:No results found.Assessment: Suspect recurrent aspiration pneumonia. Acute COPD exacerbation Acute respiratory failure. Dysphagia R/o sepsis. Plan:1. Continue IV Vancomycin and IV zosyn2. Follow cultureMaPat Valiente 2018 0830 AM Name Value Range Interpretation Code Description Data [facility](s) Supporting Document(s ) ID Date Data Source [id number] 03/16/2019 07:19:52 AM [facility] Bedside and Verbal shift change report carol pham to Shira RN (oncoming nurse) bySergio Mendoza RN (offgoing nurse). Report inclu ded the following information SBAR, Kardex, MARand Recent Results. Name Value Range Interpretation Code Description Data Harriett rce(s) Supporting Document(s ) ID Date Data Source [id number] 03/16/2019 10:06:00 AM EST [facility] Name Value Range Interpretation Description Data Sup porting Code Source(s) Document(s ) Leukocytes 8.6 K/uL 4.8-10.6 [facility] - [#/volume] in Good Blood by [facility] Automated [facility] Erythrocytes 4.45 4.70-6.0 Below low normal [facility] - [#/volume] in M/uL 0 Good Blood by [facility] Automated count Hospital Hemoglobin 13.9 14.0-18. Below low normal [facility] - [Mass/volume] in g/dL 0 Good Blood [facility] Hematocrit 42.4 % 42.0-52. [facility] - [Volume 0 Good Fraction] of [facility] Blood by Hospital Automated count Erythrocyte mean 95.3 FL 81.0-94. Above high normal [facility] - corpuscular 0 Good volume [Entitic Taoist volume] by Hospital Automated count Erythrocyte mean 31.2 PG 27.0-35. [facility] - corpuscular 0 Good hemoglobin [facility] [Entitic mass] Hospital by Automated count Erythrocyte mean 32.8 30.7-37. [facility] - corpuscular g/dL 3 Good hemoglobin [facility] concentration Hospital [Mass/volume] by Automated count Erythrocyte 15.6 % 11.5-14. Above high normal [facility] - distribution 0 Good width [Ratio] by [facility] Automated count [facility] Platelets 261 K/uL 130-400 [facility] - [#/volume] in Good Blood by [facility] Automated count [facility] Platelet mean 9.4 FL 9.2-11.8 [facility] - volume [Entitic Good volume] in Blood [facility] by Automated Hospital count Segmented 70 % 48-72 [facility] - neutrophils/100 Good leukocytes in Taoist Blood by Manual Hospital count Lymphocytes/100 17 % 18-40 Below low normal [facility] - leukocytes in Good Blood by Manual [facility] count [facility] Monocytes/100 11 % 2-12 [facility] - leukocytes in Good Blood by Manual [facility] count [facility] Metamyelocytes/1 1 % 0 Above high normal [facility] - 00 leukocytes in Good Blood by Manual [facility] count [facility] Myelocytes/100 1 % 0 Above high normal [facility] - leukocytes in Good Blood by Manual [facility] count [facility] Erythrocyte [facility] - morphology Good finding [facility] [Identifier] in Hospital Blood Platelet [facility] - adequacy Good [Presence] in Taoist Blood by Light Hospital microscopy Differential [facility] - cell count Good method - Blood [facility] ID Date Data Source [id number] 03/16/2019 08:28:27 AM EST [facility] Name Value Range Interpretation Description Data Sup porting Code Source(s) Document(s ) Sodium 138 136-145 [facility] - Good [Moles/volume] mmol/L [facility] in Serum or Hospital Plasma Potassium 4.1 3.5-5.1 [facility] - Good [Moles/volume] mmol/L [facility] in Serum or Hospital Plasma Chloride 101 98-107 [facility] - Good [Moles/volume] mmol/L [facility] in Serum or Hospital Plasma Carbon 35 21-32 Above high normal [facility] - Good dioxide, total mmol/L [facility] [Moles/volume] Hospital in Serum or Plasma Anion gap in 6 mmol/L 10-20 Below low normal [facility] - Go od Serum or [facility] Plasma Hospital Glucose 87 mg/dL 74-106 [facility] - Good [Mass/volume] [facility] in Serum or Hospital Plasma Urea nitrogen 12 mg/dL 7-18 [facility] - Good [Mass/volume] [facility] in Serum or Hospital Plasma Creatinine 0.34 0.70-1.3 Below low normal [facility] - Good [Mass/volume] mg/dL 0 [facility] in Serum or Hospital Plasma Glomerular >60 [facility] - Good filtration [facility]ist rate/1.73 sq M Hospital predicted among blacks [Volume Rate/Area] in Serum or Plasma by Creatinine-bas ed formula (MDRD) Glomerular >60 [facility] - Good filtration [facility]ist rate/1.73 sq M Hospital predicted among non-blacks [Volume Rate/Area] in Serum or Plasma by Creatinine-bas ed formula (MDRD) Calcium 9.6 8.5-10.1 [facility] - Good [Mass/volume] mg/dL [facility] in Serum or Hospital Plasma Phosphate 2.9 2.5-4.9 [facility] - Good [Mass/volume] mg/dL [facility] in Serum or Hospital Plasma Albumin 2.3 g/dL 3.5-4.7 Below low normal [facility] - Good [Mass/volume] [facility] in Serum or Hospital Plasma by Bromocresol purple (BCP) dye binding method ID Date Data Source [id number] 03/16/2019 08:28:27 AM EST [facility] Name Value Range Interpretation Description Data Sup porting Code Source(s) Document(s ) Magnesium 2.1 mg/dL 1.6-2.6 [facility] [Mass/volume] [facility]ist in Serum or Hospital Plasma ID Date Data Source [id number] 03/16/2019 01:26:24 AM [facility] Problem: Falls - Risk ofGoal: *Absence o f FallsDescriptionDocument Samra Fall Risk and appropriate interventions in the jhon wsheet.Outcome: Progressing Towards GoalNote: Fall Risk Interventions:Mobility Interve ntions: Communicate number of staff needed forambulation/transferMentation Interven tions: Evaluate medications/consider consulting pharmacy, Dooropen when patie nt unattended, More frequent roundingMedication Interventions: Evalua te medications/consider consulting pharmacy,Bed/chair exit alarmElimination Interventions: Call light in reach, Toileting schedule/hourly roundsProblem: Pressure Injury - Risk ofGoal: *Prevention of pressure injuryDescriptionDocument Br dheeraj Scale and appropriate interventions in the flowsheet.Outcome: Progressing Towar ds GoalNote: Pressure Injury Interventions:Sensory Interventions: Ass ess changes in LOC, Check visual cues for pain,Pressure redistribution bed/mattres s (bed type), Turn and reposition approx.every two hours (pillows and wedg es if needed)Moisture Interventions: Absorbent underpads, Apply protective ba rrier, creamsand emollients, Internal/External urinary devices, Maint ain skin hydration(lotion/cream), Moisture barrierActivity Interventions: Pressure redistribution bed/mattress(bed type), Increasetime out of bed, PT/OT evaluatio nMobility Interventions: Pressure redistribution bed/mattress (bed type), Turnand reposition approx. every two hours(pillow and wedges)Nutrition Interv entions: Offer support with meals,snacks and hydration, Documentfood/fluid/supplement intakeFriction and Shear Interventions: Apply protective barrier, creams andemol lientsProblem: Non-Violent RestraintsGoal: *No harm/injury to patient while restrai nts in useOutcome: Progressing Towards Goal Name Value Range Interpretation Code Description Data Harriett rce(s) Supporting Document(s ) ID Date Data Source [id number] 03/15/2019 11:02:48 PM [facility] Progress NotePatient: Evelio Carlin Sex: male DOA: 03/11/2019Date of : 1950 Age: 68 y.o. :[id number]:Reyes Carlin is 68 y.o. male who is awake, wearing O2 NC. RN was reportingpt flor g off his nasal canula, telemetry leads and IV. Pt was observed todayattempting to brush off the nasal canula with Mitts on. He was brought to the ED for chest congesti on, wheeze, fever, tachypnea, andhypoxia.CXR showed no evidence of acute cardiopulmon connor disease. Poor inspiratoryeffort. Gastric distention. He was found with le ukocytosis and metabolicacidosis.He had audible respiratory crackles and rhonchi on examination.Pt was admitted with encounter diagnosis of Acute respiratory failure withhypercapnia and hypoxia, Possible pneumonia, likely aspiration, A cute COPD andGastric Distention. Also, diag of Dysphagia s/p jtube, and intellectua ldisability.The patient is non verbal and unable to provide a history.He has medic al history of Dysphagia, recurrent aspiration pneumonia, s/p g/tconversion to jtube on 02/16/19, hyperlipidemia,hyperparathyroid,unspecif ied,seizure, large hiatal hernia, anxiety disorder, personal history ofpulmonary e mbolus,COPD, GERD, Schizophrenia, Unspecified,Kyphosis,Parkinsondisease, S evere intellectual disabilities.and Generalized muscle weakness.CT Chest pan ed 03/14/19 showing Worsening right lower lobe infiltrate. Slightworsening of the right middle lobe infiltrate. Improvedd left lung. 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 Pupils are equalNeck: Supple, symmetrical, no stephanie nopathy, no carotid bruit and no JVD.Lungs: Clear to auscultation bilaterally. No Wheezing or Rhonchi. No rales.Chest wall: No Accessory muscle use.Heart: Regula r rate and rhythm, no murmur, or rub.Abdomen: Positive peg in place, no n-tender. Not distended. Bowel soundsnormal. No massesExtremities: Positive contractu res at knees, atraumatic, No cyanosis. No edema.No clubbingSkin: Warm and dry. No rashes or lesions. Not JaundicedLymph nodes: Cervical, supraclavicular normal. Neurologic: EOMs intact. No facial asymmetry. Nonverbal, generalized weakness,,Alert a nd Awake.Intake and Output:Current Shift: 03/15 1901 - 03/16 0700In: 85Out: -Last three shifts: 03/14 701 - 03/15 1900In: 3150 [I.V.:2100]Out: 700 [Urine:700]Lab/ Data Reviewed:Recent Days:Recent Labs 03/14/1907WB C 7.6 8.8 10.6HGB 12.0* 11.8* 12.5*HCT 36.6* 35.9* 38.4*PLT 236 252 251Recent Labs 1 03/14/1909NA 139 -- 140 138K 4.2 -- 3.6 4.1CL 101 -- 106 101CO2 36* 35* 31 35*GLU 118* -- 111* 129*BUN 13 -- 17 25*CREA 0.39* -- 0.25* 0.39*CA 8.7 -- 8.1* 9.4MG 2.0 -- 1.7 2.3PHOS 3.1 -- -- 2.8ALB 2.0* -- 1.9* 2.1*TBILI -- -- 0.7 --SGOT -- -- 9* --ALT -- -- 10* --Recent Labs [id number] 7.42PCO2 52*PO2 69*HCO3 34*CULTURE, BLOO D [[id number]] (Order [id number])MicrobiologyDate: 03/11/2019 D epartment: [facility] Released By/Authorizing:Jessie Neumann MD (auto-released)Specimen Information: Blood Component Value Flag Ref Range Units Sta tusSpecial Requests: PreliminaryNO SPECIAL REQUESTSCulture result: NO GROWT H 4 DAYSCULTURE, BLOOD [[id number]] (Order [id number])MicrobiologyDate: 03/11/2019 D epartment: [facility] Released By/Authorizing:Jessie Neumann MD (auto-released)Specimen Information: Blood Component Value Flag Ref Range Units Sta tusSpecial Requests: PreliminaryNO SPECIAL REQUESTSCulture result: NO GROWT H 4 DAYSCt Chest Wo ContResult Date: 03/14/2019History: Respiratory difficult y. FINDINGS: CT scanning of the chest wasperformed helically from lung apices to the upper abdomen without intravenouscontrast dural. Sagittal and coronal reconstructed images are submitted.Scanning was performed utilizi ng dose lowering techniques and is compared to theprior study of 01/15/2019. Evaluati on of thoracic vascular structures is limitedwithout intravenous contrast mate rial. There is, however, no definite CTevidence of dissection or focal aneury smal dilatation. Some peripheralcalcification is noted. There is no evidence of any pa thologically enlargedlymph node within the visualized portions of the mediastinum o r axillae. Somenonpathologically enlarged lymph nodes are seen. Again noted is angel vation of theleft hemidiaphragm. A left small pleural effusion is noted as well asatel ectatic change at the left lung base. Patchy opacity at the right lung baseis compati ble with a right basilar infiltrate. There is some patchy opacitywithin the right midd le lobe as well. The right basal infiltrate is greater insize than that seen previou sly. The pleural effusion is smaller. The rightmiddle lobe infiltrate is similar. Limited evaluation of upper abdominalstructures reveals a tube withi n the stomach directed toward the duodenum.Diffuse hypertrophic degenerati ve changes are noted of the thoracic spine. Thereis again noted to be shift of media stinal structures to the right.IMPRESSION: Worsening right lower lobe infiltrate. S light worsening of the rightmiddle lobe infiltrate. Improved left lung.Xr Chest PortResult Date: 03/11/2019CHEST one view HISTORY: Fever. COPD. Reflux. COMPARISON : 02/12/2019. Anadditional view was obtained. A tubular structure overlies the stomach andmidabdomen with some gastric distention and elevation of the left hemidiaphragm. There is a poor inspiratory effort which compromises this interpretation. Arepeat study is suggested. .There is no gross evidence of congestion,infiltrates, effu sions or pneumothorax. Old rib fractures are noted.IMPRESSION: No evidence of acute c ardiopulmonary disease. Poor inspiratoryeffort. Gastric distention.Me dications reviewedCurrent Facility-Administered MedicationsMedicat ion Dose Route Frequency methylPREDNISolone (PF) (SOLU-MEDROL) injection 20 mg 20 m g IntraVENous Q12H acetylcysteine (MUCOMYST) 100 mg/mL (10 %) nebulizer solution 400 mg 4 mLInhalation BID RT budesonide (PULMICORT) 500 mcg/2 ml nebulizer suspe nsion 500 mcg NebulizationBID RT mupirocin (BACTROBAN) 2 % ointment Topical DAILY sodium chloride (NS) flush 5-10 mL 5- 10 mL IntraVENous PRN 0.9% sodium chloride in fusion 50 mL/hr IntraVENous CONTINUOUS cinacalcet (SENSIPAR) tablet 60 mg 60 m g Oral DAILY ALPRAZolam (XANAX) tablet 0.25 mg 0.25 mg Per G Tube QHS heparin (por cine) injection 5,000 Units 5,000 Units SubCUTAneous Q12H lamoTRIgine (LaMICtal ) tablet 50 mg 50 mg Per G Tube BID multivitamin (ONE A DAY) tablet 1 Tab 1 Tab Per G Tube DAILY pantoprazole (PROTONIX) granules for oral suspension 40 mg 40 mg Per G TubeACB valproic acid (as sodium salt) (DEPAKENE) 250 mg/5 mL (5 m L) oral solution 750mg 750 mg Per G Tube Q12H acetaminophen (TYLENOL) solution 6 50 mg 650 mg Per G Tube Q4H PRN albuterol-ipratropium (DUO-NEB) 2.5 MG-0 .5 MG/3 ML 3 mL Nebulization Q6HWA RT piperacillin-tazobactam (ZOSYN) 3.375 g in 0.9% sodium chloride (MBP/ADV) 100mL MBP 3.375 g IntraVENous Q8H vancomycin (VAN COCIN) 1,000 mg in 0.9% sodium chloride 250 mL IVPB 1,000 mgIntraVENous [id number] ent/Plan:Hospital Problems Date Reviewed: 03/15/2019 Codes Class Noted POA Ac manzanita respiratory failure with hypoxia (HCC) ICD-10-CM: J96.01ICD-9-CM: 518.81 2018 Unknown Pneumonia ICD-10-CM: J18.9ICD-9-CM: 486 11/08/2018 UnknownAss essment:Acute Respiratory Failure with hypercapnia and hypoxiaPossible Pneumoni aAcute COPDLeukocytosisGastric distentionDysphagia S/P recent g/t conve rsion to jtubeSeizureHyperparathyroidGERD/ Large HHParkinsonismAnxiety disorderSeve re intellectual disabilities Plan: Humidified O2/ BIPAP per pulmContinue IV vancomycin and zosyn per IDNebulizersTaper iv steroids per pulmStart TFStrict aspiration precau tionsContinue officer captain lamictal, depakote, clorazepate (xanax) and sensiparFollow c ulmaren -Teofilo Gonzalez 2018Time: 9:53 PM Name Value Range Interpretation Code Description Data Harriett e(s) Supporting Document(s ) ID Date Data Source [id number] 03/15/2019 07:32:27 PM EST [facility] Bedside shift change report given Misty rivera RN (oncoming nurse) by NANCY Medina (offgoing nurse). Report included thefollowing inf ormation SBAR, Kardex, MAR and Recent Results. Name Value Range Interpretation Code Description Data Harriett rce(s) Supporting Document(s ) ID Date Data Source [id number] 03/15/2019 05:09:46 PM [facility] Pt's sister (HCP) asked for update in pt 's condition from Dr. Hills. Two callsplaced on Dr. Hills's service. No return call received. Name Value Range Interpretation Code Description Data [facility] rce(s) Supporting Document(s ) ID Date Data Source [id number] 03/15/2019 01:03:51 PM [facility] PULMONARY/ CCM- Consult NotePatient: Ivelisse Carlin Sex: male DOA: 03/11/2019Date of : [birth year] Age: 68 y.o. LOS: LOS: 4 daysHPI: step down.Evelio Carlin is a 68 y.o. 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 Authoriz ing ProviderpredniSONE 5 mg/5 mL oral soultion Take 30 mg by mouth daily. Roberto s Provider,Historicalvalproic acid, as sodium salt, (DEPAKENE) 250 mg/5 mL (5 mL) soln oral [id number] mg by Per G Tube route every twelve (12) hours. Yes Provider, Historicalacetylcysteine (MUCOMYST) 100 mg/mL (10 %) nebulizer solution Take 4 m L byinhalation two (2) times a day. Yes Provider, Historicalomeprazole (PRILOSEC ) 2 mg/mL susp 2 mg/mL oral suspension (compounded) 40 mg byPer G Tube route da pierre. Yes Provider, Historicalacetaminophen (TYLENOL) 32MG/ML soln solution Take 20. 3 mL by mouth every four(4) hours as needed for Pain or Fever.Patient taking differe ntly: Take 650 mg by mouth every four (4) hours as neededfor Pain or Fever. Was on e time dose for fever 01/24/19 Yes Mili Hills DOclorazepate (TRANXENE) 3.75 m g tablet 1 Tab by Per G Tube route nightly. MaxDaily Amount: 3.75 mg. 12/30/18 Yes Mili Brooks DOcinacalcet (SENSIPAR) 30 mg tablet Take 2 Tabs by mouth daily.Patien t taking differently: 30 mg daily. Via G tube 12/30/18 Yes Mili Hills DOlamoTRIgi ne (LAMICTAL) 25 mg tablet 2 Tabs by Per G Tube route two (2) times aday. 12/30/18 Yes Mili Hills DOalbuterol-ipratropium (DUO-NEB) 2.5 mg-0.5 mg/3 ml nebu 3 mL b y Nebulizationroute every six (6) hours. Every 6 hours while awakePatient taking differently: 3 mL by Nebulization route every four (4) hours asneeded. Every 6 hours w hile awake 12/30/18 Yes Mili Hills DObudesonide (PULMICORT) 0.5 mg/2 mL nbs p 2 mL by Nebulization route two (2) timesa day. 12/30/18 Yes Mili Hills DONo Known AllergiesPast Surgical History:Procedure Laterality Date HX GA STROSTOMY PEG- replaced 11/2018History reviewed. No pertinent family history.So cial HistorySocioeconomic History Marital status: SINGLE Spouse name: Not on file Number of children: Not on file Years of education: Not on file Highest educatio n level: Not on fileTobacco Use Smoking status: Never Smoker Smokeless tobacco: Never UsedSubstance and Sexual Activity Alcohol use: No Drug use: Swapna of Eloisa ystemsPertinent items are noted in the History of Present Illness.Physical Exam :Current medications:Current Facility-Administered Medications: met hylPREDNISolone (PF) (SOLU-MEDROL) injection 40 mg, 40 mg, IntraVENous,Q8H, Eloisa Hills DO, Stopped at 03/15/19 0816 acetylcysteine (MUCOMYST) 100 mg/mL (10 %) nebulizer solution 400 mg, 4 mL,Inhalation, BID RT, Krystian Monae MD , 400 mg at 03/15/19 0820 budesonide (PULMICORT) 500 mcg/2 ml nebulizer suspe nsion, 500 mcg,Nebulization, BID RT, Krystian Monae MD, 500 mcg at 03/15/19 0821 mu pirocin (BACTROBAN) 2 % ointment, , Topical, DAILY, Mili Hills DO sodium chlo ride (NS) flush 5-10 mL, 5-10 mL, IntraVENous, PRN, Jessie Neumann MD 0.9% sodium chloride infusion, 50 mL/hr, IntraVENous, CONTINUOUS, Mili Hills DO, Last Rate: 50 mL/hr at 03/15/19 0618, 50 mL/hr at 03/15/19 0618 cinacalcet (SEN SIPAR) tablet 60 mg, 60 mg, Oral, DAILY, Mili Hills DO,60 mg at 03/15/19 08 19 ALPRAZolam (XANAX) tablet 0.25 mg, 0.25 mg, Per G Tube, QHS, Mili Hills DO, 0.25 mg at 03/14/19 2142 heparin (porcine) injection 5,000 Units, 5,000 Units, SubC UTAneous, Q12H,Mili Hills DO, 5,000 Units at 03/15/19 1053 lamoTRIgine (La MICtal) tablet 50 mg, 50 mg, Per G Tube, BID, Mili Hills DO, 50 mg at 03/15/19 08 21 multivitamin (ONE A DAY) tablet 1 Tab, 1 Tab, Per G Tube, DAILY, Mili Hills DO, 1 Tab at 03/15/19 0820 pantoprazole (PROTONIX) granules for oral suspension 40 mg, 40 mg, Per GTube, ACB, Mili Hills DO, 40 mg at 03/15/19 0820 va lproic acid (as sodium salt) (DEPAKENE) 250 mg/5 mL (5 mL) oral [id number] mg, 750 mg, Per G Tube, Q12H, Mili Hills DO, 750 mg at 03/15/19 0820 acetaminophen (TYLENOL) solution 650 mg, 650 mg, Per G Tube, Q4H PRN, Mili Hills DO albu terol-ipratropium (DUO-NEB) 2.5 MG-0.5 MG/3 ML, 3 mL, Nebulization, [id number] Nihal, MD, 3 mL at 03/15/19 0820 piperacillin-tazobactam (ZOSYN) 3.375 g in 0.9% sodium chloride (MBP/ADV) 100mL MBP, 3.375 g, IntraVENous, Q8H, Natasha Dudley MD, Last Rate: 200 mL/hr at105/16/18 0816, 3.375 g at 03/15/19 0816 vancomycin (V ANCOCIN) 1,000 mg in 0.9% sodium chloride 250 mL IVPB, 1,000 mg,IntraVENous, Q12H, Natasha Peters MD, Last Rate: 125 mL/hr at 03/15/19 0815,1,000 mg at 03/15/19 0815D ataVisit VitalsBP 111/64 (BP 1 Location: Left arm, BP Patient Position: At rest)Pulse 69Temp 98.6 F (37 C)Resp 18Ht 5' 2" (1.575 m)Wt 55.6 kg (122 lb 9.6 oz)SpO2 92%BMI 22.42 kg/m Intake and Output:Date 03/14/19699 - 03/15/1965803/15/19699 - 06/03 0659Shift 9880-9870 6538-8617 24 Hour Total 2144-6816 7812-2160 24 Hour TotalI NTAKEI.V.(mL/kg/hr) 1050(1.5) 1050(0.8) 350 350 Volume (0.9% sodium chloride infusi on) 600 600 Volume (piperacillin-tazobactam (ZOSYN) 3.375 g in 0.9% sodium chloride( MBP/ADV) 100 mL MBP) 200 200 100 100 Volume (vancomycin (VANCOCIN) 1,000 mg i n 0.9% sodium chloride 250 mL IVPB)250 250 250 250NG/GT 865 865 185 185 Water F lush Volume (mL) (G/J Tube) 265 265 85 85 Medication Volume (G/J Tube) 100 100 10 0 100 Intake (ml) (G/J Tube) 500 500Shift Total(mL/kg) 1915(32.8) 1915(34.4) 535( 9.6) 535(9.6)OUTPUTUrine(mL/kg/hr) 700(1) 700(0.5) Urine Voided 700 700Shift Tot al(mL/kg) 700(12.6) 700(12.6)NET 191 - 1215 535 535Weight (kg) 58.4 55.6 55.6 55.6 55.6 55.6Pulse OX:SpO2 Readings from Last 6 Encounters:03/15/19 92%02/19/19 9 6%02/18/19 92%01/24/19 93%12/30/18 96%11/27/18 91%@LASTSAO2(6)@PHYSICAL EXA M:General: Lethargic,responding.Head: Normocephalic, without obvious abnormali ty, atraumatic.Eyes: Conjunctivae clear, anicteric sclerae. Pupils are equalNose : Nares normal. No drainage or sinus tenderness.Throat: Lips, mucosa, and tongue normal. No ThrushNeck: Supple, symmetrical, no adenopathy, thyroid: no n tender no carotid bruit and no JVD.Back: Symmetric, No CVA tenderness.Lungs: Scattered rhonchi,Chest wall: No tenderness or deformity. No Accessory muscle use.He art: Regular rate and rhythm, no murmur, rub or gallop.Abdomen: Soft, non-tende r. Not distended. Bowel sounds normal. No massesExtremities: Extremities normal, a traumatic, No cyanosis. No edema. No clubbingSkin: Texture, turgor normal . No rashes or lesions. Not JaundicedLymph nodes: Cervical, supraclavicular normal. Psych: Good insight. Not depressed. Not anxious or agitated.Neurologic: EOMs int act. No facial asymmetry. No aphasia or slurred speech.Most recent labs:Recent L abs 03/14/1907WBC 7.6 8.8 10.6HGB 12.0* 11 .8* 12.5*HCT 36.6* 35.9* 38.4*PLT 236 252 251Recent Labs 03/14/1909 1 03/13/1907NA 139 -- 140 138K 4.2 -- 3.6 4.1CL 101 -- 106 101 CO2 36* 35* 31 35*GLU 118* -- 111* 129*BUN 13 -- 17 25*CREA 0.39* -- 0.25* 0.39 *CA 8.7 -- 8.1* 9.4MG 2.0 -- 1.7 2.3PHOS 3.1 -- -- 2.8ALB 2.0* -- 1.9* 2.1* TBILI -- -- 0.7 --SGOT -- -- 9* --ALT -- -- 10* --Recent Labs 02/151PH 7.42PCO2 52*PO2 69*HCO3 34*ABG: Labs H 7.42P CO2 52*PO2 69*HCO3 34*Cultures:No results found for: CloudaccLab ResultsComponent Valu e Date/Time Culture result: NO GROWTH 4 DAYS 03/11/2019 04:14 AM Culture result: NO G ROWTH 4 DAYS 03/11/2019 04:14 AM Culture result: NO GROWTH 5 DAYS 02/08/2019 05:1 9 PM Culture result: NO GROWTH 5 DAYS 02/08/2019 05:00 PM Culture result: NO G ROWTH 5 DAYS 01/21/2019 11:30 PM Culture result: NO GROWTH 2 DAYS 01/21/2019 11:1 5 PM Culture result: NO GROWTH 5 DAYS 01/21/2019 11:00 PM Culture result: NO G ROWTH 1 DAY 01/10/2019 08:58 AM Culture result: NO GROWTH 5 DAYS 01/10/2019 07:5 5 AM Culture result: NO GROWTH 5 DAYS 01/10/2019 07:40 AM Culture result: NO G ROWTH 5 DAYS 12/29/2018 11:23 AM Culture result: NO GROWTH 5 DAYS 12/29/2018 11:0 0 AM Culture result: 10,000 to 50,000 COLONIES/mL KLEBSIELLA PNEUMONIAE (A) 11:00 AM Culture result: 50,000-100,000 COLONIES/mL PSEUDOMONAS A ERUGINOSA (A)12/29/2018 11:00 AM Culture result: (A) 12/29/2018 11:00 AM 10,000 to 50,000 COLONIES/mL STAPHYLOCOCCUS EPIDERMIDIS Culture result: NO GROWTH 2 DAYS 12/24/2018 09:45 AM Culture result: NO GROWTH 5 DAYS 12/23/2018 12:00 PM Cultur e result: NO GROWTH 5 DAYS 12/23/2018 11:40 AM Culture result: NO GROWTH 4 DAYS 09/2018 12:30 PM Culture result: NO GROWTH 4 DAYS 12/19/2018 12:30 PM Culture result: NO GROWTH 1 DAY 12/12/2018 08:04 PM Culture result: NO GROWTH 5 DAYS 12/12/2018 07:4 0 PM Culture result: NO GROWTH 5 DAYS 12/12/2018 07:40 PM Culture result: NO G ROWTH 2 DAYS 11/20/2018 09:00 AM Culture result: NO GROWTH 5 DAYS 11/07/2018 08:1 0 PM Culture result: NO GROWTH 5 DAYS 11/07/2018 08:00 PMImages:Cta Chest W Or W Wo ContResult Date: 11/08/2018Examination: CTA Chest ? PE angiography History: Hypo magdy; rule out pneumoniaversus pulmonary embolism Priors: None Technique: Low-d ose, multiplanar,helical CTA chest was performed with bolus IV injection from lung apices tobases. 3D-reformatted images were obtained and reviewed on a [employer] d viewingworkstation and directly supervised. Contrast: A total of 71 mL of Isovue-370 was administered intravenously for this procedure. Findings: No evidence ofpulmo nary embolism is seen. There is decreased size of the right hemithorax fromchronic scarring and retraction with mediastinal shift left to right.Additional area of c onsolidation is seen in the right lower lobe and suggestssuperimposed pneumonia with subsegmental atelectasis. Subsegmental atelectasisis also noted in the left jorge g base, with pleural parenchymal scarring. Lowlung volumes are seen. No pneumothora x seen. Aorta normal in caliber withoutaneurysm or dissection. Mediastin um no adenopathy. Mediastinal shift is seen inthe left and right as a result of chr onic changes in the right hemithorax.Heart shows no chamber enlargement or pericard ial effusion. No acute fracturesseen in the bony thorax, sternum, manubrium and rib cage. Multiple compressiondeformities are seen in the mid and lower thoracic spine , with superimposedspondyloarthropathy. Cannot exclude acute fracture.Impression : No evidence of pulmonary embolism Right lower lobe pneumoniasuggested. Incidenta l scarring and retraction in the right hemithorax fromremote/chronic inflammato ry disease and/or trauma. Bibasilar subsegmentalatelectasis. Report Electron ically Signed By: Pawel Zafar M.D. -11/08/2018 12:40 AMXr Chest PortResult D ate: 11/07/2018XR CHEST PORT CLINICAL INDICATION PROVIDED:. "sob." COMPARISON: . 09/26/2015.FINDINGS:. The pericardial/cardiac silhouette is enlarg ed in the transversedimension. There is no pulmonary vascular congestion or interst itial edema.Linear density in the left lung base and faint densities in the right mi d tolower lung likely represent atelectasis. There is no lobar consolidation oreffusi on. There is no pneumothorax.IMPRESSION:. Bilateral lower lung atelectasis. No donna dence of consolidation oreffusion.Assessment/PlanActive Problem s: Pneumonia (11/08/2018) Acute respiratory failure with hypoxia (HCC) (01/10/2019) A cute resp failure combined pneumonia recurrent acute copd exacerbationPLAN,Mo nitoring,bipap prn for resp distress,abx as per id.Steroid nebbipap prn and at night .NebGi /dvt prophylaxis.D/w nursing staff.Pat Munson 2018T he billing code submitted in association with this evaluation also includes thetime to review patient's prior records, communicate with the physician team,obtain corrobora ting data, and discuss the risk and benefits of the proposedmanagement plan with the patient and their family >30 minutes. Name Value Range Interpretation Code Description Data Harriett rce(s) Supporting Document(s ) ID Date Data Source [id number] 03/15/2019 11:15:10 AM [facility] Problem: Pneumonia: Discharge OutcomesGo al: *Tolerating dietOutcome: Progressing Towards GoalGoal: *Respiratory status at baselineOutcome: Progressing Towards GoalGoal: *Vital signs within defined li mitsOutcome: Progressing Towards GoalProblem: Non-Violent RestraintsGoal: *No harm/inj ury to patient while restraints in useOutcome: Progressing Towards GoalGoal : *Patient's dignity will be maintainedOutcome: Progressing Towards G oal Name Value Range Interpretation Code Description Data Harriett rce(s) Supporting Document(s ) ID Date Data Source [id number] 03/15/2019 09:11:28 AM EST [facility] - [facility] ID Progress Note03/15/2019Subjective:Siri ent with history of mental retardation,recurrent aspiration pneumon ia wasTransferred from the long-term for fever of 101.2,increase chestcongestion, wheezing and respiratory disrtess.He was febrile to 100.5 on arrivalto the ER wit h elevated wbc of 18,600.Patient is unable to provide history.AfebrileBlood cx remain negativeNon verbal unable to provide historyObjective:Review of Systems: unab le to provideVitals:Patient Vitals for the past 24 hrs: BP Temp Pulse Resp SpO2 Earl t105/16/18 0759 133/63 98.7 F (37.1 C) (!) 48 18 95 % -03/15/19 0643 - - - - - 55.6 kg (122 lb 9.6 oz)03/15/19 0338 126/76 99.3 F (37.4 C) 79 16 95 % -03/14/19 2342 12 82 98.5 F (36.9 C) 81 16 94 % -03/14/19 2026 138/80 98 F (36.7 C) 60 16 95 % - 03/14/19 1603 146/87 98.6 F (37 C) 62 18 97 % -03/14/19 1150 144/77 98.1 F (36.7 C ) 71 18 96 % -Tmax: Temp (24hrs), Av.5 F (36.9 C), Min:98 F (36.7 C), Max:99 .3 F(37.4 C)Physical Exam:General: Lethargic,non verbal on BiPAP cooperativ e, no distress, appears statedage.Eyes: Conjunctivae/corneas clear. PERRLNeck: S upple, symmetrical, trachea midline, no adenopathyLungs: Bilateral breath soun ds with basal crackles..Heart: Regular rate and rhythm, S1, S2 normal, no murmurAbdo men: Soft, non-tender. Bowel sounds normal. No masses, Noorganomegaly.peg+Back: N o CVA tenderness.Extremities: Contracted chronic lymphedemaPulses: 2+ and symmetr ic all extremities.Skin: Skin color, texture, turgor normal. No rashes or lesionsLymph nodes: Cervical, supraclavicular, and axillary nodes normal.Neurologic: Non ve rbal functional quadriplegia Current Facility-Administered MedicationsMedicat ion Dose Route Frequency methylPREDNISolone (PF) (SOLU-MEDROL) injection 40 mg 40 m g IntraVENous Q8H acetylcysteine (MUCOMYST) 100 mg/mL (10 %) nebulizer solution 400 mg 4 mLInhalation BID RT budesonide (PULMICORT) 500 mcg/2 ml nebulizer suspe nsion 500 mcg NebulizationBID RT mupirocin (BACTROBAN) 2 % ointment Topical DAILY sodium chloride (NS) flush 5-10 mL 5- 10 mL IntraVENous PRN 0.9% sodium chloride in fusion 50 mL/hr IntraVENous CONTINUOUS cinacalcet (SENSIPAR) tablet 60 mg 60 m g Oral DAILY ALPRAZolam (XANAX) tablet 0.25 mg 0.25 mg Per G Tube QHS heparin (por cine) injection 5,000 Units 5,000 Units SubCUTAneous Q12H lamoTRIgine (LaMICtal ) tablet 50 mg 50 mg Per G Tube BID multivitamin (ONE A DAY) tablet 1 Tab 1 Tab Per G Tube DAILY pantoprazole (PROTONIX) granules for oral suspension 40 mg 40 mg Per G TubeACB valproic acid (as sodium salt) (DEPAKENE) 250 mg/5 mL (5 m L) oral solution 750mg 750 mg Per G Tube Q12H acetaminophen (TYLENOL) solution 6 50 mg 650 mg Per G Tube Q4H PRN albuterol-ipratropium (DUO-NEB) 2.5 MG-0 .5 MG/3 ML 3 mL Nebulization Q6HWA RT piperacillin-tazobactam (ZOSYN) 3.375 g in 0.9% sodium chloride (MBP/ADV) 100mL MBP 3.375 g IntraVENous Q8H vancomycin (VAN COCIN) 1,000 mg in 0.9% sodium chloride 250 mL IVPB 1,000 mgIntraVENous D25XHewi:Re cent Labs 03/14/1907WBC 7.6 8.8 10.6HGB 12.0* 11 .8* 12.5*PLT 236 252 251BUN 13 17 25*CREA 0.39* 0.25* 0.39*SGOT -- 9* --AP -- 76 --TBILI -- 0.7 --Cultures:No results found for: SDESLab ResultsComponent Valu e Date/Time Culture result: NO GROWTH 4 DAYS 03/11/2019 04:14 AM Culture result: NO G ROWTH 4 DAYS 03/11/2019 04:14 AM Culture result: NO GROWTH 5 DAYS 02/08/2019 05:1 9 PMRadiology:Ct Chest Wo ContResult Date: 03/14/2019History: Respiratory difficult y. FINDINGS: CT scanning of the chest wasperformed helically from lung apices to the upper abdomen without intravenouscontrast dural. Sagittal and coronal reconstructed images are submitted.Scanning was performed utilizi ng dose lowering techniques and is compared to theprior study of 01/15/2019. Evaluati on of thoracic vascular structures is limitedwithout intravenous contrast mate rial. There is, however, no definite CTevidence of dissection or focal aneury smal dilatation. Some peripheralcalcification is noted. There is no evidence of any pa thologically enlargedlymph node within the visualized portions of the mediastinum o r axillae. Somenonpathologically enlarged lymph nodes are seen. Again noted is angel vation of theleft hemidiaphragm. A left small pleural effusion is noted as well asatel ectatic change at the left lung base. Patchy opacity at the right lung baseis compati ble with a right basilar infiltrate. There is some patchy opacitywithin the right midd le lobe as well. The right basal infiltrate is greater insize than that seen previou sly. The pleural effusion is smaller. The rightmiddle lobe infiltrate is similar. Limited evaluation of upper abdominalstructures reveals a tube withi n the stomach directed toward the duodenum.Diffuse hypertrophic degenerati ve changes are noted of the thoracic spine. Thereis again noted to be shift of media stinal structures to the right.IMPRESSION: Worsening right lower lobe infiltrate. S light worsening of the rightmiddle lobe infiltrate. Improved left lung.Assessmen t: Suspect recurrent aspiration pneumonia. Acute COPD exacerbation Acute respirato ry failure. Dysphagia R/o sepsis. Plan:1. Continue IV Vancomycin and IV zosyn2. Fo llow cultureMaPat Valiente [id number] AM Name Value Range Interpretation Code Description Data Harriett rce(s) Supporting Document(s ) ID Date Data Source [id number] 03/15/2019 08:04:39 AM [facility] Progress NotePatient: Evelio Carlin Sex: male DOA: 03/11/2019Date of : 1950 Age: 68 y.o. :[id number]:Reyes Carlin is 68 y.o. male who is awake, wearing O2 NC. RN reporting ptwas flor g off his O2, telemetry leads and IV on last evening. Mitts wereordered He was brou ght to the ED for chest congestion, wheeze, fever, tachypnea, andhypoxia.CXR showed no evidence of acute cardiopulmonary disease. Poor inspiratoryeffort. Gastric disten tion. He was found with leukocytosis and metabolicacidosis.He had audible respira tory crackles and rhonchi on examination.Pt was admitted with encounter diagnosis of Acute respiratory failure withhypercapnia and hypoxia, Possible pneumonia, likely aspiration, Acute COPD andGastric Distention. Also, diag of Dysphagia s/p jtube, and intellectualdisability.The patient is non verbal and unable to provide a history. He has medical history of Dysphagia, recurrent aspiration pneumonia, s/p g/tc onversion to jtube on 02/16/19, hyperlipidemia,hyperparathyroid,unspecif ied,seizure, large hiatal hernia, anxiety disorder, personal history ofpulmonary e mbolus,COPD, GERD, Schizophrenia, Unspecified,Kyphosis,Parkinsondisease, S evere intellectual disabilities.and Generalized muscle weakness.Past Medical History:Diagnosis Date Chronic obstructive pulmonary disease (HCC) Diaphragmatic h ernia without obstruction and without gangrene GERD (gastroesophageal reflux disease) Hyperparathyroidism (HCC) Mental retardation 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 Eyes: Conjunctivae clear, anicteric sclerae. Pupils are equalNeck: Supple, symmetrical, no adenopathy, no carotid bruit and no JVD.Back: Symmetric, No CVA tenderness.Lungs: Clear to auscultation bilaterally. No Wheezing o r Rhonchi. No rales.Chest wall: No Accessory muscle use.Heart: Regular ra te and rhythm, no murmur, or rubAbdomen: Positive peg in place, non-tender. Not d istended. Bowel soundsnormal. No massesExtremities: Positive contractures at knees. atraumatic, No cyanosis. No edema.No clubbingSkin: Warm and dry. No rashes or lesions. Not JaundicedLymph nodes: Cervical, supraclavicular normal. Neurologic: EOMs intact. No facial asymmetry. Nonverbal, generalized weakness,Alert an d Awake.Intake and Output:Current Shift: No intake/output data recorded.Last three s hifts: 03/13 701 - 03/14 1900In: 3835 [I.V.:2100]Out: 1025 [Urine:1025]Lab/Pan a Reviewed:Recent Days:Recent Labs 03/13/1907WBC 8.8 10.6HGB 11.8* 12.5*HCT 35.9* 38.4*PLT 252 251Recent Labs 03/14/190719 0749 650NA -- 140 138 -- 140K -- 3.6 4.1 -- 4.7CL -- 106 101 -- 100CO2 35* 31 35* < > 37*GLU -- 111* 129* -- 98BUN -- 17 25* -- 19*CREA -- 0.25* 0.39* -- 0.52*CA -- 8.1* 9.4 -- 9.9MG -- 1.7 2.3 -- 2.1PHOS -- -- 2.8 -- 3.8ALB -- 1.9* 2.1* -- 2.5*TBILI -- 0.7 -- -- --SGOT -- 9* -- -- --ALT -- 10* -- -- -- < > = values in this interval not displa yed.Recent Labs 03/12/1911PH 7.42 7.41PCO2 52* 55*PO2 69* 81*HCO3 34* 35*FIO2 -- 40.0CULTURE, BLOOD [[id number]] (Order [id number])MicrobiologyDate: 03/11 Department: [facility] Released By/Authorizing:Jessie Neumann MD (auto-released)Specimen Information: Blood Component Value Flag Ref Range Units Sta tusSpecial Requests: PreliminaryNO SPECIAL REQUESTSCulture result: NO GROWT H 3 DAYSCULTURE, BLOOD [[id number]] (Order [id number])MicrobiologyDate: 03/11/2019 D epartment: [facility] Released By/Authorizing:Jessie Neumann MD (auto-released)Specimen Information: Blood Component Value Flag Ref Range Units Sta tusSpecial Requests: PreliminaryNO SPECIAL REQUESTSCulture result: NO GROWT H 3 DAYSCt Chest Wo ContResult Date: 03/14/2019History: Respiratory difficult y. FINDINGS: CT scanning of the chest wasperformed helically from lung apices to the upper abdomen without intravenouscontrast dural. Sagittal and coronal reconstructed images are submitted.Scanning was performed utilizi ng dose lowering techniques and is compared to theprior study of 01/15/2019. Evaluati on of thoracic vascular structures is limitedwithout intravenous contrast mate rial. There is, however, no definite CTevidence of dissection or focal aneury smal dilatation. Some peripheralcalcification is noted. There is no evidence of any pa thologically enlargedlymph node within the visualized portions of the mediastinum o r axillae. Somenonpathologically enlarged lymph nodes are seen. Again noted is angel vation of theleft hemidiaphragm. A left small pleural effusion is noted as well asatel ectatic change at the left lung base. Patchy opacity at the right lung baseis compati ble with a right basilar infiltrate. There is some patchy opacitywithin the right midd le lobe as well. The right basal infiltrate is greater insize than that seen previou sly. The pleural effusion is smaller. The rightmiddle lobe infiltrate is similar. Limited evaluation of upper abdominalstructures reveals a tube withi n the stomach directed toward the duodenum.Diffuse hypertrophic degenerati ve changes are noted of the thoracic spine. Thereis again noted to be shift of media stinal structures to the right.IMPRESSION: Worsening right lower lobe infiltrate. S light worsening of the rightmiddle lobe infiltrate. Improved left lung.Xr Chest PortResult Date: 03/11/2019CHEST one view HISTORY: Fever. COPD. Reflux. COMPARISON : 02/12/2019. Anadditional view was obtained. A tubular structure overlies the stomach andmidabdomen with some gastric distention and elevation of the left hemidiaphragm. There is a poor inspiratory effort which compromises this interpretation. Arepeat study is suggested. .There is no gross evidence of congestion,infiltrates, effu sions or pneumothorax. Old rib fractures are noted.IMPRESSION: No evidence of acute c ardiopulmonary disease. Poor inspiratoryeffort. Gastric distention.Me dications reviewedCurrent Facility-Administered MedicationsMedicat ion Dose Route Frequency acetylcysteine (MUCOMYST) 100 mg/mL (10 %) nebulizer so lution 400 mg 4 mLInhalation BID RT budesonide (PULMICORT) 500 mcg/2 ml nebu lizer suspension 500 mcg NebulizationBID RT mupirocin (BACTROBAN) 2 % ointment Top ical DAILY sodium chloride (NS) flush 5-10 mL 5-10 mL IntraVENous PRN methylPREDN ISolone (PF) (SOLU-MEDROL) injection 40 mg 40 mg IntraVENous Q6H 0.9% sodium chlor wade infusion 50 mL/hr IntraVENous CONTINUOUS cinacalcet (SENSIPAR) tablet 60 mg 60 mg Oral DAILY ALPRAZolam (XANAX) tablet 0.25 mg 0.25 mg Per G Tube QHS heparin (por cine) injection 5,000 Units 5,000 Units SubCUTAneous Q12H lamoTRIgine (LaMICtal ) tablet 50 mg 50 mg Per G Tube BID multivitamin (ONE A DAY) tablet 1 Tab 1 Tab Per G Tube DAILY pantoprazole (PROTONIX) granules for oral suspension 40 mg 40 mg Per G TubeACB valproic acid (as sodium salt) (DEPAKENE) 250 mg/5 mL (5 m L) oral solution 750mg 750 mg Per G Tube Q12H acetaminophen (TYLENOL) solution 6 50 mg 650 mg Per G Tube Q4H PRN albuterol-ipratropium (DUO-NEB) 2.5 MG-0 .5 MG/3 ML 3 mL Nebulization Q6HWA RT piperacillin-tazobactam (ZOSYN) 3.375 g in 0.9% sodium chloride (MBP/ADV) 100mL MBP 3.375 g IntraVENous Q8H vancomycin (VAN COCIN) 1,000 mg in 0.9% sodium chloride 250 mL IVPB 1,000 mgIntraVENous [id number] ent/Plan:Hospital Problems Date Reviewed: 03/14/2019 Codes Class Noted POA A cute respiratory failure with hypoxia (HCC) ICD-10-CM: J96.01ICD-9-CM: 518.81 2018 Unknown Pneumonia ICD-10-CM: J18.9ICD-9-CM: 486 11/08/2018 UnknownAss essment: Acute Respiratory Failure with hypercapnia and hypoxiaPossible Pneumoni aAcute COPDLeukocytosisGastric distentionDysphagia S/P recent g/t conve rsion to jtubeSeizureHyperparathyroidGERD/ Large HHParkinsonismAnxiety disorderSeve re intellectual disabilities Plan: O2/ BIPAP per pulmContinue IV vancomycin and zosyn per IDNebulizersIv steroids per pulmStart TFStrict aspiration precautionsContinue officer captain lamictal, depakote, clorazepate (xanax) and sensiparFollow cultures Mili Yonatan onSonia 2018Time: 11:48 PM Name Value Range Interpretation Code Description Data Harriett rce(s) Supporting Document(s ) ID Date Data Source [id number] 03/15/2019 08:44:11 AM EST [facility] Name Value Range Interpretation Description Data Sup porting Code Source(s) Document(s ) Sodium 139 136-145 [facility] [Moles/volume] mmol/L [facility] in Serum or Hospital Plasma Potassium 4.2 3.5-5.1 [facility] [Moles/volume] mmol/L [facility] in Serum or Hospital Plasma Chloride 101 98-107 [facility] [Moles/volume] mmol/L [facility] in Serum or Hospital Plasma Carbon 36 21-32 Above high normal [facility] dioxide, total mmol/L [facility] [Moles/volume] Hospital in Serum or Plasma Anion gap in 7 mmol/L 10-20 Below low normal [facility] Serum or [facility] Plasma Hospital Glucose 118 74-106 Above high normal [facility] [Mass/volume] mg/dL [facility] in Serum or Hospital Plasma Urea nitrogen 13 mg/dL 7-18 [facility] [Mass/volume] [facility] in Serum or Hospital Plasma Creatinine 0.39 0.70-1.3 Below low normal [facility] [Mass/volume] mg/dL 0 [facility] in Serum or Hospital Plasma Glomerular >60 [facility] filtration [facility] rate/1.73 sq M Hospital predicted among blacks [Volume Rate/Area] in Serum or Plasma by Creatinine-bas ed formula (MDRD) Glomerular >60 [facility] filtration [facility] rate/1.73 sq M Hospital predicted among non-blacks [Volume Rate/Area] in Serum or Plasma by Creatinine-bas ed formula (MDRD) Calcium 8.7 8.5-10.1 [facility] [Mass/volume] mg/dL [facility] in Serum or Hospital Plasma Phosphate 3.1 2.5-4.9 [facility] [Mass/volume] mg/dL [facility] in Serum or Hospital Plasma Albumin 2.0 g/dL 3.5-4.7 Below low normal [facility] [Mass/volume] [facility] in Serum or Hospital Plasma by Bromocresol purple (BCP) dye binding method ID Date Data Source [id number] 03/15/2019 08:44:11 AM EST [facility] Name Value Range Interpretation Description Data Sup porting Code Source(s) Document(s ) Magnesium 2.0 mg/dL 1.6-2.6 [facility] [Mass/volume] [facility] in Serum or Hospital Plasma ID Date Data Source [id number] 03/15/2019 08:25:06 AM EST [facility] Name Value Range Interpretation Description Data Sup porting Code Source(s) Document(s ) Leukocytes 7.6 K/uL 4.8-10.6 [facility] - [#/volume] in Good Blood by [facility] Erythrocytes 3.82 4.70-6.0 Below low normal [facility] - [#/volume] in M/uL 0 Good Blood by [facility] Automated [facility] Hemoglobin 12.0 14.0-18. Below low normal [facility] - [Mass/volume] in g/dL 0 Good Blood [facility] Hematocrit 36.6 % 42.0-52. Below low normal [facility] - [Volume 0 Good Fraction] of [facility] Blood by [facility] Automated count Erythrocyte mean 95.8 FL 81.0-94. Above high normal [facility] - corpuscular 0 Good volume [Entitic Tao[facility] volume] by Hospital Automated count Erythrocyte mean 31.4 PG 27.0-35. [facility] - corpuscular 0 Good hemoglobin Taoist [Entitic mass] [facility] by Automated count Erythrocyte mean 32.8 30.7-37. [facility] - corpuscular g/dL 3 Good hemoglobin [facility] concentration [facility] [Mass/volume] by Automated count Erythrocyte 15.5 % 11.5-14. Above high normal [facility] - distribution 0 Good width [Ratio] by [facility] count [facility] Platelets 236 K/uL 130-400 [facility] - [#/volume] in Good Blood by [facility] Platelet mean 9.3 FL 9.2-11.8 [facility] - volume [Entitic Good volume] in [facility] by Automated Hospital count Segmented 77 % 48.0-72. Above high normal [facility] - neutrophils/100 0 Good leukocytes in [facility] Lymphocytes/100 16 % 18.0-40. Below low normal [facility] - leukocytes in 0 [facility] Monocytes/100 7 % 2.0-12.0 [facility] - leukocytes in [facility] Eosinophils/100 0 % 0.0-7.0 [facility] - leukocytes in [facility] Basophils/100 0 % 0.0-3.0 [facility] - leukocytes in [facility] Segmented 5.7 K/UL 1.5-6.6 [facility] - neutrophils Good [#/volume] in [facility] Lymphocytes 1.2 K/UL 1.5-3.5 Below low normal [facility] - [#/volume] in [facility] Monocytes 0.6 K/UL 0.0-1.0 [facility] - [#/volume] in [facility] Eosinophils 0.0 K/UL 0.0-0.7 [facility] - [#/volume] in [facility] Basophils 0.0 K/UL 0.0-0.1 [facility] - [#/volume] in [facility] Differential [facility] - cell count Good method [facility] Immature 2 % 0.0-2.0 [facility] - granulocytes/100 Good leukocytes in [facility] by Hospital Automated count ID Date Data Source [id number] 03/15/2019 07:10:05 AM EST [facility] Bedside and Verbal shift change report carol Silva RN (oncoming nurse) Yves Bonilla RN(offgoing nurse). Report given with SBAR, Kardex, Intake/Output, MAR and RecentResults. Name Value Range Interpretation Code Description Data Harriett rce(s) Supporting Document(s ) ID Date Data Source [id number] 03/15/2019 12:36:14 AM EST [facility] Problem: Falls - Risk ofGoal: *Absence o f FallsDescriptionDocument Samra Fall Risk and appropriate interventions in the jhon wsheet.Outcome: Progressing Towards GoalNote: Fall Risk Interventions:Mobility Interve ntions: Bed/chair exit alarmMentation Interventions: Adequate sleep, hydration , pain controlMedication Interventions: Bed/chair exit alarmElimination Interven tions: Call light in reachProblem: Patient Education: Go to Patient Education Activ ityGoal: Patient/Family EducationOutcome: Progressing Towards GoalProblem: Pressur e Injury - Risk ofGoal: *Prevention of pressure injuryDescriptionDocument Brade n Scale and appropriate interventions in the flowsheet.Outcome: Progressing Towards G oalNote: Pressure Injury Interventions:Sensory Interventions: Ass ess changes in LOCMoisture Interventions: Absorbent underpadsActivity Intervention s: Assess need for specialty bedMobility Interventions: Assess need for specialty bedNutrition Interventions: Document food/fluid/supplement intakeFriction and Shear Interventions: Apply protective barrier, creams andemollientsProblem: Pa tient Education: Go to Patient Education ActivityGoal: Patient/Family EducationOu tcome: Progressing Towards GoalProblem: Patient Education: Go to Patient Educati on ActivityGoal: Patient/Family EducationOutcome: Progressing Towards Go alProblem: Pneumonia: Day 4Goal: Activity/SafetyOutcome: Progressing Towa rds GoalProblem: Pneumonia: Discharge OutcomesGoal: *Demonstrates progressive activityOutcome: Progressing Towards GoalGoal: *Describes follow-up/return vi sits to physiciansOutcome: Progressing Towards GoalGoal: *Tolerating dietOutcom e: Progressing Towards GoalGoal: *Verbalizes name, dosage, time, side effects, and nu mber of days tocontinue medicationsOutcome: Progressing Towards GoalGoal: *Respirato ry status at baselineOutcome: Progressing Towards GoalGoal: *Vital signs within de fined limitsOutcome: Progressing Towards GoalGoal: *Describes available resources and support systemsOutcome: Progressing Towards GoalGoal: *Optimal pain control at patient's stated goalOutcome: Progressing Towards GoalProblem: Non-Violent Restrai ntsGoal: *No harm/injury to patient while restraints in useOutcome: Progressing To wards GoalGoal: *Patient's dignity will be maintainedOutcome: Progressing Towards G oalGoal: *Patient Specific Goal (EDIT GOAL, INSERT TEXT)Outcome: Progressing Towards GoalGoal: Non-violent Restaints:Standard InterventionsOutcome: Progressing Toward s GoalGoal: Non-violent Restraints:Patient InterventionsOutcome: Progressing Toward s Goal Name Value Range Interpretation Code Description Data Harriett rce(s) Supporting Document(s ) ID Date Data Source [id number] 03/15/2019 12:16:19 AM [facility] Problem: Falls - Risk ofGoal: *Absence o f FallsDescriptionDocument Samra Fall Risk and appropriate interventions in the jhon wsheet.Outcome: Progressing Towards GoalNote: Fall Risk Interventions:Mobility Interve ntions: Bed/chair exit alarmMentation Interventions: Adequate sleep, hydration , pain controlMedication Interventions: Bed/chair exit alarmElimination Interven tions: Call light in reachProblem: Patient Education: Go to Patient Education Activ ityGoal: Patient/Family EducationOutcome: Progressing Towards GoalProblem: Pressur e Injury - Risk ofGoal: *Prevention of pressure injuryDescriptionDocument Brade n Scale and appropriate interventions in the flowsheet.Outcome: Progressing Towards G oalNote: Pressure Injury Interventions:Sensory Interventions: Ass ess changes in LOCMoisture Interventions: Absorbent underpadsActivity Intervention s: Assess need for specialty bedMobility Interventions: Assess need for specialty bedNutrition Interventions: Document food/fluid/supplement intakeFriction and Shear Interventions: Apply protective barrier, creams andemollientsProblem: Pa tient Education: Go to Patient Education ActivityGoal: Patient/Family EducationOu tcome: Progressing Towards GoalProblem: Patient Education: Go to Patient Educati on ActivityGoal: Patient/Family EducationOutcome: Progressing Towards Go alProblem: Pneumonia: Day 4Goal: Activity/SafetyOutcome: Progressing Towa rds GoalProblem: Pneumonia: Discharge OutcomesGoal: *Demonstrates progressive activityOutcome: Progressing Towards GoalGoal: *Describes follow-up/return vi sits to physiciansOutcome: Progressing Towards GoalGoal: *Tolerating dietOutcom e: Progressing Towards GoalGoal: *Verbalizes name, dosage, time, side effects, and nu mber of days tocontinue medicationsOutcome: Progressing Towards GoalGoal: *Respirato ry status at baselineOutcome: Progressing Towards GoalGoal: *Vital signs within de fined limitsOutcome: Progressing Towards GoalGoal: *Describes available resources and support systemsOutcome: Progressing Towards GoalGoal: *Optimal pain control at patient's stated goalOutcome: Progressing Towards Goal Name Value Range Interpretation Code Description Data Harriett rce(s) Supporting Document(s ) ID Date Data Source [id number] 03/14/2019 03:18:54 PM EST [facility] PULMONARY/ CCM- Consult NotePatient: Ivelisse Carlin Sex: male DOA: 03/11/2019Date of : [birth year] Age: 68 y.o. LOS: LOS: 3 daysHPI: step down.Evelio Carlin is a 68 y.o. 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 Authoriz ing ProviderpredniSONE 5 mg/5 mL oral soultion Take 30 mg by mouth daily. Roberto s Provider,Historicalvalproic acid, as sodium salt, (DEPAKENE) 250 mg/5 mL (5 mL) soln oral [id number] mg by Per G Tube route every twelve (12) hours. Yes Provider, Historicalacetylcysteine (MUCOMYST) 100 mg/mL (10 %) nebulizer solution Take 4 m L byinhalation two (2) times a day. Yes Provider, Historicalomeprazole (PRILOSEC ) 2 mg/mL susp 2 mg/mL oral suspension (compounded) 40 mg byPer G Tube route da pierre. Yes Provider, Historicalacetaminophen (TYLENOL) 32MG/ML soln solution Take 20. 3 mL by mouth every four(4) hours as needed for Pain or Fever.Patient taking differe ntly: Take 650 mg by mouth every four (4) hours as neededfor Pain or Fever. Was on e time dose for fever 01/24/19 Yes Mili Hills DOclorazepate (TRANXENE) 3.75 m g tablet 1 Tab by Per G Tube route nightly. MaxDaily Amount: 3.75 mg. 12/30/18 Yes Mili Brooks DOcinacalcet (SENSIPAR) 30 mg tablet Take 2 Tabs by mouth daily.Patien t taking differently: 30 mg daily. Via G tube 12/30/18 Yes Mili Hills DOlamoTRIgi ne (LAMICTAL) 25 mg tablet 2 Tabs by Per G Tube route two (2) times aday. 12/30/18 Yes Mili Hills DOalbuterol-ipratropium (DUO-NEB) 2.5 mg-0.5 mg/3 ml nebu 3 mL b y Nebulizationroute every six (6) hours. Every 6 hours while awakePatient taking differently: 3 mL by Nebulization route every four (4) hours asneeded. Every 6 hours w hile awake 12/30/18 Yes Mili Hills DObudesonide (PULMICORT) 0.5 mg/2 mL nbs p 2 mL by Nebulization route two (2) timesa day. 12/30/18 Yes Mili Hills DONo Known AllergiesPast Surgical History:Procedure Laterality Date HX GA STROSTOMY PEG- replaced 11/2018History reviewed. No pertinent family history.So cial HistorySocioeconomic History Marital status: SINGLE Spouse name: Not on file Number of children: Not on file Years of education: Not on file Highest educatio n level: Not on fileTobacco Use Smoking status: Never Smoker Smokeless tobacco: Never UsedSubstance and Sexual Activity Alcohol use: No Drug use: NoReview of S ystemsPertinent items are noted in the History of Present Illness.Physical Exam :Current medications:Current Facility-Administered Medications: mup irocin (BACTROBAN) 2 % ointment, , Topical, DAILY, Mili Hills DO sodium chlo ride (NS) flush 5-10 mL, 5-10 mL, IntraVENous, PRN, Jessie Neumann MD methylPREDNISolone (PF) (SOLU-MEDROL) injection 40 mg, 40 mg, IntraVENous,Q6H, Mili Hills DO, 40 mg at 03/14/19 1201 0.9% sodium chloride infusion, 50 mL/hr , IntraVENous, CONTINUOUS, Mili Hills DO, Last Rate: 50 mL/hr at 03/14/19 0515 , 50 mL/hr at 03/14/19 0515 cinacalcet (SENSIPAR) tablet 60 mg, 60 mg, Oral, DA PIERRE, Mili Hills DO,60 mg at 03/14/19 0820 ALPRAZolam (XANAX) tablet 0.25 mg , 0.25 mg, Per G Tube, QHS, Mili Hills DO, 0.25 mg at 03/13/19 2108 h eparin (porcine) injection 5,000 Units, 5,000 Units, SubCUTAneous, Q12H,Cesar Hills DO, 5,000 Units at 03/14/19 1201 lamoTRIgine (LaMICtal) tablet 50 mg, 50 mg, Per G Tube, BID, Mili Hills DO, 50 mg at 03/14/19 0820 multivitamin (ONE A DAY) tablet 1 Tab, 1 Tab, Per G Tube, DAILY, Mili Hills DO, 1 Tab at 02/15 0820 pantoprazole (PROTONIX) granules for oral suspension 40 mg, 40 mg, Per GT ube, ACB, Mili Hills DO, 40 mg at 03/14/19 0820 valproic acid (as sodium salt) (DEPAKENE) 250 mg/5 mL (5 mL) oral grrcdezh919 mg, 750 mg, Per G Tube, Q12H , Mili Hills DO, 750 mg at 03/14/19 0820 acetaminophen (TYLENOL) solution 650 mg, 650 mg, Per G Tube, Q4H PRN, Mili Hills DO acetylcysteine (MUC OMYST) 100 mg/mL (10 %) nebulizer solution 400 mg, 4 mL,Inhalation, Q12H, Nicole Monae MD, 400 mg at 03/14/19 0842 budesonide (PULMICORT) 500 mcg/2 ml nebu lizer suspension, 500 mcg,Nebulization, Q12H, Krystian Monae MD, 500 mcg at 03/14/19 0 842 albuterol-ipratropium (DUO-NEB) 2.5 MG-0.5 MG/3 ML, 3 mL, Nebulization, Q6HW ART, Krystian Monae MD, 3 mL at 03/14/19 1417 piperacillin-tazobactam (ZOSYN) 3.375 g in 0.9% sodium chloride (MBP/ADV) 100mL MBP, 3.375 g, IntraVENous, Q8H, Yassine Dudley MD, Last Rate: 200 mL/hr at105/14/18 0815, 3.375 g at 03/14/19 0815 vancomy dominick (VANCOCIN) 1,000 mg in 0.9% sodium chloride 250 mL IVPB, 1,000 mg,IntraVENo us, Q12H, Natasha Dudley MD, Last Rate: 125 mL/hr at 03/14/19 0728,1,000 mg at 03/14 0728DataVisit VitalsBP 144/77 (BP 1 Location: Left arm, BP Patient Position: At rest;Head of bedelevated (Comment degrees))Pulse 71Temp 98.1 F (36.7 C)R david 18Ht 5' 2" (1.575 m)Wt 58.4 kg (128 lb 11.2 oz)SpO2 96%BMI 23.54 kg/m Intake an d Output:Date 03/13/19699 - 03/14/1965803/14/19699 - 03/15/19 0659Shift 0700- 1859 2232-1993 24 Hour Total 2318-4620 4118-8840 24 Hour TotalINTAKEI.V.(mL/kg/ hr) 1050(1.5) 1050(0.7) 350 350 Volume (0.9% sodium chloride infusion) 600 600 Volume (piperacillin-tazobactam (ZOSYN) 3.375 g in 0.9% sodium chloride(MBP/ADV) 100 mL MBP) 200 200 100 100 Volume (vancomycin (VANCOCIN) 1,000 mg in 0.9% sodium chloride 250 mL IVPB)250 250 250 250NG/GT 870 870 200 200 Water Flush Volume (mL) (G/J Tube) 270 270 100 100 Medication Volume (G/J Tube) 100 100 10 0 100 Intake (ml) (G/J Tube) 500 500Shift Total(mL/kg) 1920(32.8) 1920(32.9) 550( 9.4) 550(9.4)OUTPUTUrine(mL/kg/hr) 475(0.7) 550(0.8) 1025(0.7) Urine Output (mL) (C ondom Catheter 03/13/19) 475 550 1025Shift Total(mL/kg) 475(8.1) 550(9.4) 1025(17.6 )NET 1445 -550 895 550 550Weight (kg) 58.5 58.4 58.4 58.4 58.4 58.4Pulse OX:SpO2 Re adings from Last 6 Encounters:03/14/19 96%02/19/19 96%02/18/19 92%01/24/19 93%0 12/30/18 96%11/27/18 91%@LASTSAO2(6)@PHYSICAL EXAM:General: Lethargic,responding.He ad: Normocephalic, without obvious abnormality, atraumatic.Eyes: Conjunct ivae clear, anicteric sclerae. Pupils are equalNose: Nares normal. No drainage or sinus tenderness.Throat: Lips, mucosa, and tongue normal. No ThrushNeck: Supp le, symmetrical, no adenopathy, thyroid: non tender no carotid bruit and no JVD.Back : Symmetric, No CVA tenderness.Lungs: Scattered rhonchi,Chest wall: No tender ness or deformity. No Accessory muscle use.Heart: Regular rate and rhythm, n o murmur, rub or gallop.Abdomen: Soft, non-tender. Not distended. Bowel sounds normal. No massesExtremities: Extremities normal, atraumatic, No cyanosis. No deepthi ma. No clubbingSkin: Texture, turgor normal. No rashes or lesions. Not Jaund icedLymph nodes: Cervical, supraclavicular normal.Psych: Good insight. Not depres sed. Not anxious or agitated.Neurologic: EOMs intact. No facial asymmetry. No aph greg or slurred speech.Most recent labs:Recent Labs 740 749WBC 8.8 10.6HGB 11.8* 12.5*HCT 35.9* 38.4*PLT 252 251Recent Labs 1 03/13/1907NA -- 140 138 -- 140K -- 3.6 4.1 -- 4.7CL -- 106 101 -- 100CO2 35* 31 35* < > 37*GLU -- 111* 129* -- 98BUN -- 17 25* -- 19*CREA -- 0.25* 0.39* -- 0.52*CA -- 8.1* 9.4 -- 9.9MG -- 1. 7 2.3 -- 2.1PHOS -- -- 2.8 -- 3.8ALB -- 1.9* 2.1* -- 2.5*TBILI -- 0.7 - - -- --SGOT -- 9* -- -- --ALT -- 10* -- -- -- < > = values in this i nterval not displayed.Recent Labs 03/12/1911PH 7.42 7.41 7.40PCO2 52* 55* 55*PO2 69* 81* 248WSI8 34* 35* 34*FIO2 -- 40.0 50.0AB G:Recent Labs 03/12/1911PH 7.42 7.41 7.40PCO2 52* 55 * 55*PO2 69* 81* 067OYL1 34* 35* 34*FIO2 -- 40.0 50.0Cultures:No results found for: SDESLab ResultsComponent Value Date/Time Culture result: NO GROWTH 3 DAYS 019 04:14 AM Culture result: NO GROWTH 3 DAYS 03/11/2019 04:14 AM Culture result: NO G ROWTH 5 DAYS 02/08/2019 05:19 PM Culture result: NO GROWTH 5 DAYS 02/08/2019 05:0 0 PM Culture result: NO GROWTH 5 DAYS 01/21/2019 11:30 PM Culture result: NO G ROWTH 2 DAYS 01/21/2019 11:15 PM Culture result: NO GROWTH 5 DAYS 01/21/2019 11:0 0 PM Culture result: NO GROWTH 1 DAY 01/10/2019 08:58 AM Culture result: NO G ROWTH 5 DAYS 01/10/2019 07:55 AM Culture result: NO GROWTH 5 DAYS 01/10/2019 07:4 0 AM Culture result: NO GROWTH 5 DAYS 12/29/2018 11:23 AM Culture result: NO G ROWTH 5 DAYS 12/29/2018 11:00 AM Culture result: 10,000 to 50,000 COLONIES/mL KLE BSIELLA PNEUMONIAE (A)12/29/2018 11:00 AM Culture result: 50,000-100,000 COLONIES/ mL PSEUDOMONAS AERUGINOSA (A)12/29/2018 11:00 AM Culture result: (A) 12/29/2018 11:00 AM 10,000 to 50,000 COLONIES/mL STAPHYLOCOCCUS EPIDERMIDIS Culture resul t: NO GROWTH 2 DAYS 12/24/2018 09:45 AM Culture result: NO GROWTH 5 DAYS 019 12:00 PM Culture result: NO GROWTH 5 DAYS 12/23/2018 11:40 AM Culture result: NO G ROWTH 4 DAYS 12/19/2018 12:30 PM Culture result: NO GROWTH 4 DAYS 12/19/2018 12:3 0 PM Culture result: NO GROWTH 1 DAY 12/12/2018 08:04 PM Culture result: NO G ROWTH 5 DAYS 12/12/2018 07:40 PM Culture result: NO GROWTH 5 DAYS 12/12/2018 07:4 0 PM Culture result: NO GROWTH 2 DAYS 11/20/2018 09:00 AM Culture result: NO G ROWTH 5 DAYS 11/07/2018 08:10 PM Culture result: NO GROWTH 5 DAYS 11/07/2018 08:0 0 PMImages:Cta Chest W Or W Wo ContResult Date: 11/08/2018Examination: CTA Chest ? PE angiography History: Hypoxia; rule out pneumoniaversus pulmonary embolism Prior s: None Technique: Low-dose, multiplanar,helical CTA chest was perfor med with bolus IV injection from lung apices tobases. 3D-reformatted images were obt ained and reviewed on a dedicated viewingworkstation and directly supervis ed. Contrast: A total of 71 mL of Isovue-370was administered intravenously for this procedure. Findings: No evidence ofpulmonary embolism is seen. There is d ecreased size of the right hemithorax fromchronic scarring and retraction with mediastinal shift left to right.Additional area of consolidation is seen in the rig ht lower lobe and suggestssuperimposed pneumonia with subsegmental atelectasis. Subsegmental atelectasisis also noted in the left lung base, with pleural parench ymal scarring. Lowlung volumes are seen. No pneumothorax seen. Aorta normal in calib er withoutaneurysm or dissection. Mediastinum no adenopathy. Mediastinal shift is see n inthe left and right as a result of chronic changes in the right hemithorax. Heart shows no chamber enlargement or pericardial effusion. No acute fractures seen in the bony thorax, sternum, manubrium and rib cage. Multiple compressiondefor mities are seen in the mid and lower thoracic spine, with superimposedspondyloarthropa thy. Cannot exclude acute fracture.Impression: No evidence of pul monary embolism Right lower lobe pneumoniasuggested. Incidental scarring and retraction in the right hemithorax fromremote/chronic inflammatory disease and/or trauma. Bibasilar subsegmentalatelectasis. Report Electron ically Signed By: Pawel Zafar M.D. -11/08/2018 12:40 AMXr Chest PortResult D ate: 11/07/2018XR CHEST PORT CLINICAL INDICATION PROVIDED:. "sob." COMPARISON: . 09/26/2015.FINDINGS:. The pericardial/cardiac silhouette is enlarg ed in the transversedimension. There is no pulmonary vascular congestion or interst itial edema.Linear density in the left lung base and faint densities in the right mi d tolower lung likely represent atelectasis. There is no lobar consolidation oreffusi on. There is no pneumothorax.IMPRESSION:. Bilateral lower lung atelectasis. No donna dence of consolidation oreffusion.Assessment/PlanActive Problem s: Pneumonia (11/08/2018) Acute respiratory failure with hypoxia (HCC) (01/10/2019) A cute resp failure combined pneumonia recurrent acute copd exacerbationPLAN,Mo nitoring,bipap prn for resp distress,abx as per id.Steroid nebbipap prn and at night .NebGi /dvt prophylaxis.D/w nursing staff.Stella Hamilton MDNov2018 The billing code submitted in association with this evaluation also includes theti me to review patient's prior records, communicate with the physician team,obta in corroborating data, and discuss the risk and benefits of the proposedmanagement p frantz with the patient and their family >30 minutes. Name Value Range Interpretation Code Description Data Harriett rce(s) Supporting Document(s ) ID Date Data Source [id number] 03/14/2019 01:16:24 PM [facility] ID Progress Note03/14/2019Subjective:Betty razo with history of mental retardation,recurrent aspiration pneumon ia wasTransferred from the long-term for fever of 101.2,increase chestcongestion, wheezing and respiratory disrtess.He was febrile to 100.5 on arrivalto the ER wit h elevated wbc of 18,600.Patient is unable to provide history.AfebrileBlood cx remain negativeNon verbal unable to provide historyObjective:Review of Systems: unab le to provideVitals:Patient Vitals for the past 24 hrs: BP Temp Pulse Resp SpO2 [place] 0939805/14/18 0728 154/78 97.9 F (36.6 C) 65 18 96 % -03/14/19 0620 - - - - - 58.4 kg (128 lb 11.2 oz)03/14/19 0517 164/83 - - - - -03/14/19 0414 (!) 165/100 97.9 F (36.6 C) 64 18 96 % -03/14/19 0039 150/77 97.5 F (36.4 C) (!) 57 18 96 % -03/13/192029 - - - - 93 % -03/13/192015 118/80 98.1 F (36.7 C) 65 20 92 % -03/13/19 1606 137/ 67 98.2 F (36.8 C) 63 20 91 % -03/13/19 1308 135/65 98.1 F (36.7 C) 67 18 92 % -Tmax: Temp (24hrs), Av F (36.7 C), Min:97.5 F (36.4 C), Max:98.2 F(36.8 C)Physical Exam:General: Lethargic,non verbal on BiPAP cooperative, no distress , appears statedage.Eyes: Conjunctivae/corneas clear. PERRLNeck: S upple, symmetrical, trachea midline, no adenopathyLungs: Bilateral breath soun ds with basal crackles..Heart: Regular rate and rhythm, S1, S2 normal, no murmurAbdo men: Soft, non-tender. Bowel sounds normal. No masses, Noorganomegaly.peg+Back: N o CVA tenderness.Extremities: Contracted chronic lymphedemaPulses: 2+ and symmetr ic all extremities.Skin: Skin color, texture, turgor normal. No rashes or lesionsLymph nodes: Cervical, supraclavicular, and axillary nodes normal.Neurologic: Non ve rbal functional quadriplegia Current Facility-Administered MedicationsMedicat ion Dose Route Frequency mupirocin (BACTROBAN) 2 % ointment Topical DAILY sodium chloride (NS) flush 5-10 mL 5- 10 mL IntraVENous PRN methylPREDNISolone (PF) (SOLU-MEDROL) injection 40 mg 40 mg IntraVENous Q6H 0.9% sodium chloride in fusion 50 mL/hr IntraVENous CONTINUOUS cinacalcet (SENSIPAR) tablet 60 mg 60 m g Oral DAILY ALPRAZolam (XANAX) tablet 0.25 mg 0.25 mg Per G Tube QHS heparin (por cine) injection 5,000 Units 5,000 Units SubCUTAneous Q12H lamoTRIgine (LaMICtal ) tablet 50 mg 50 mg Per G Tube BID multivitamin (ONE A DAY) tablet 1 Tab 1 Tab Per G Tube DAILY pantoprazole (PROTONIX) granules for oral suspension 40 mg 40 mg Per G TubeACB valproic acid (as sodium salt) (DEPAKENE) 250 mg/5 mL (5 m L) oral solution 750mg 750 mg Per G Tube Q12H acetaminophen (TYLENOL) solution 6 50 mg 650 mg Per G Tube Q4H PRN acetylcysteine (MUCOMYST) 100 mg/mL (10 %) nebulizer solution 400 mg 4 mLInhalation Q12H budesonide (PULMICORT) 500 mcg/2 m l nebulizer suspension 500 mcg [id number] albuterol-ipratropium (DUO-NEB) 2.5 MG-0.5 MG/3 ML 3 mL Nebulization Q6HWA RT piperacillin-tazo bactam (ZOSYN) 3.375 g in 0.9% sodium chloride (MBP/ADV) 100mL MBP 3.375 g In traVENous Q8H vancomycin (VANCOCIN) 1,000 mg in 0.9% sodium chloride 250 mL IVPB 1,0 00 mgIntraVENous T36TEfaw:Recent Labs 03/13/1907WB C 8.8 10.6 --HGB 11.8* 12.5* --PLT 252 251 --BUN 17 25* 19*CREA 0.25* 0.39* 0.52*SG OT 9* -- --AP 76 -- --TBILI 0.7 -- --Cultures:No results found for: SDESLab ResultsComponent Value Date/Time Culture result: NO GROWTH 2 DAYS 03/11/2019 04:1 4 AM Culture result: NO GROWTH 2 DAYS 03/11/2019 04:14 AM Culture result: NO G ROWTH 5 DAYS 02/08/2019 05:19 PMRadiology:Ct Chest Wo ContResult Date: 03/14/2019Hist ory: Respiratory difficulty. FINDINGS: CT scanning of the chest wasperformed helic ally from lung apices to the upper abdomen without intravenouscontrast dural. Sagit krystian and coronal reconstructed images are submitted.Scanning was performed utilizi ng dose lowering techniques and is compared to theprior study of 01/15/2019. Evaluati on of thoracic vascular structures is limitedwithout intravenous contrast mate rial. There is, however, no definite CTevidence of dissection or focal aneury smal dilatation. Some peripheralcalcification is noted. There is no evidence of any pa thologically enlargedlymph node within the visualized portions of the mediastinum o r axillae. Somenonpathologically enlarged lymph nodes are seen. Again noted is angel vation of theleft hemidiaphragm. A left small pleural effusion is noted as well asatel ectatic change at the left lung base. Patchy opacity at the right lung baseis compati ble with a right basilar infiltrate. There is some patchy opacitywithin the right midd le lobe as well. The right basal infiltrate is greater insize than that seen previou sly. The pleural effusion is smaller. The rightmiddle lobe infiltrate is similar. Limited evaluation of upper abdominalstructures reveals a tube withi n the stomach directed toward the duodenum.Diffuse hypertrophic degenerati ve changes are noted of the thoracic spine. Thereis again noted to be shift of media stinal structures to the right.IMPRESSION: Worsening right lower lobe infiltrate. S light worsening of the rightmiddle lobe infiltrate. Improved left lung.Assessmen t: Suspect recurrent aspiration pneumonia. Acute COPD exacerbation Acute respirato ry failure. Dysphagia R/o sepsis. Plan:1. Continue IV Vancomycin and IV zosyn2. Fo llow cultureMonica Gomez MDNov AM Name Value Range Interpretation Code Description Data Harriett rce(s) Supporting Document(s ) ID Date Data Source [id number] 03/14/2019 10:10:10 AM [facility] History:Respiratory difficulty.FINDINGS: CT scanning of the chest was performed helically from lung apices to the uppera bdomen without intravenous contrast dural. Sagittal and coronal reconstructedimages are submitted. Scanning was performed utilizing dose lowering techniquesand is compared to the prior study of 01/15/2019.Evaluation of thoracic vascula r structures is limited without intravenouscontrast material. There is, however, no definite CT evidence of dissection orfocal aneurysmal dilatation . Some peripheral calcification is noted. There is noevidence of any pathologicall y enlarged lymph node within the visualizedportions of the mediastinum or axillae. Some nonpathologically enlarged lymphnodes are seen.Again noted is eleva tion of the left hemidiaphragm. A left small pleuraleffusion is noted as well as atel ectatic change at the left lung base.Patchy opacity at the right lung base is compat ible with a right basilarinfiltrate. There is some patchy opacity within the right mid dle lobe as well.The right basal infiltrate is greater in size than that seen previo usly. Thepleural effusion is smaller. The right middle lobe infiltrate is similar. Limited evaluation of upper abdominal structures reveals a tube within thestom ach directed toward the duodenum.Diffuse hypertrophic degenerative changes are no mikel of the thoracic spine.There is again noted to be shift of mediastinal structu res to the right.IMPRESSION:Worsening right lower lobe infiltrate. Slight worsening of the right middle lobeinfiltrate. Improved left lung. Signing date/time: 03/14/2019 10:10 AMSigned by: SAMIR RENTERIA Name Value Range Interpretation Code Description Data Harriett rce(s) Supporting Document(s ) ID Date Data Source [id number] 03/14/2019 09:31:37 AM EST [facility] Name Value Range Interpretation Description Data Sup porting Code Source(s) Document(s ) pH of Arterial 7.42 7.35-7.[address] [facility] blood 5 [facility] Carbon dioxide 52 mmHg 32-48 Above high normal [facility] - Good [Partial Taoist pressure] in Hospital Arterial blood Oxygen 69 mmHg 83-108 Below low normal [facility] - Good [Partial Taoist pressure] in Hospital Arterial blood Carbon 35 19-24 Above high normal [facility] Good dioxide, total mmol/L Taoist [Moles/volume] Hospital in Arterial blood Bicarbonate 34 21-28 Above high normal [facility] - Go od [Moles/volume] mmol/L [facility] in Arterial Hospital blood Oxygen 95 % 94-[address] [facility] [facility] saturation in [facility] Base excess in 7.6 0-3 Above high normal [facility] Arterial blood mmol/L Taoist by calculation Hospital Body site [facility] NASAL O23 Service comment [id number] [facility] ID Date Data Source [id number] 03/14/2019 08:37:23 AM EST [facility] Name Value Range Interpretation Description Data Sup porting Code Source(s) Document(s ) Sodium 140 136-145 [facility] - [Moles/volume] in mmol/L [facility] Serum or [facility] Potassium 3.6 3.5-5.1 [facility] - [Moles/volume] in mmol/L [facility] Serum or [facility] Chloride 106 98-107 [facility] - [Moles/volume] in mmol/L [facility] Serum or [facility] Carbon dioxide, 31 21-32 [facility] - total mmol/L [facility] [Moles/volume] in Taoist Serum or [facility] Anion gap in Serum 6 10-20 Below low normal [facility] - or Plasma mmol/L [facility] Glucose 111 74-106 Above high [facility] - [Mass/volume] in mg/dL normal [facility] Serum or [facility] Urea nitrogen 17 7-18 [facility] - [Mass/volume] in mg/dL Good Serum or Plasma [facility] Creatinine 0.25 0.70-1. Below low normal [facility] - [Mass/volume] in mg/dL 30 Good Serum or Plasma [facility] Glomerular >60 [facility] - filtration Good rate/1.73 sq M Taoist predicted among Hospital blacks [Volume Rate/Area] in Serum or Plasma by Creatinine-based formula (MDRD) Glomerular >60 [facility] - filtration Good rate/1.73 sq M Taoist predicted among Hospital non-blacks [Volume Rate/Area] in Serum or Plasma by Creatinine-based formula (MDRD) Calcium 8.1 8.5-10. Below low normal [facility] - [Mass/volume] in mg/dL 1 Good Serum or Plasma [facility] Bilirubin.total 0.7 0.2-1.0 [facility] - [Mass/volume] in mg/dL Good Serum or Plasma [facility] Alanine 10 U/L 13-61 Below low normal [facility] - aminotransferase Good [Enzymatic Taoist activity/volume] in Hospital Serum or Plasma Aspartate 9 U/L 15-37 Below low normal [facility] - aminotransferase Good [Enzymatic Taoist activity/volume] in Hospital Serum or Plasma by With P-5'-P Alkaline 76 U/L 45-117 [facility] - phosphatase Good [Enzymatic Taoist activity/volume] in Hospital Serum or Plasma Protein 5.4 6.4-8.2 Below low normal [facility] - [Mass/volume] in g/dL Good Serum or Plasma [facility] Albumin 1.9 3.5-4.7 Below low normal [facility] - [Mass/volume] in g/dL Good Serum or Plasma by Taoist Bromocresol purple [facility] ([facility]) dye binding method Globulin 3.5 1.7-4.7 [facility] - [Mass/volume] in g/dL Good Serum by [facility] Albumin/Globulin 0.5 0.7-2.8 Below low normal [facility] - [Mass Ratio] in Good Serum or Plasma [facility] ID Date Data Source [id number] 03/14/2019 08:37:23 AM EST [facility] Name Value Range Interpretation Description Data Sup porting Code Source(s) Document(s ) Magnesium 1.7 mg/dL 1.6-2.6 [facility] - Good [Mass/volume] Taoist in Serum or Hospital Plasma ID Date Data Source [id number] 03/14/2019 08:20:22 AM EST [facility] Name Value Range Interpretation Description Data Sup porting Code Source(s) Document(s ) Leukocytes 8.8 K/uL 4.8-10.6 [facility] - [#/volume] in Good Blood by Taoist Automated count Hospital Erythrocytes 3.72 4.70-6.0 Below low normal [facility] - [#/volume] in M/uL 0 Good Blood by Taoist Automated count Hospital Hemoglobin 11.8 14.0-18. Below low normal [facility] - [Mass/volume] in g/dL 0 [facility] Blood [facility] Hematocrit 35.9 % 42.0-52. Below low normal [facility] - [Volume 0 Good Fraction] of Taoist Blood by Hospital Automated count Erythrocyte mean 96.5 FL 81.0-94. Above high normal [facility] - corpuscular 0 Good volume [Entitic Taoist volume] by Hospital Automated count Erythrocyte mean 31.7 PG 27.0-35. [facility] - corpuscular 0 Good hemoglobin Taoist [Entitic mass] [facility] by Automated count Erythrocyte mean 32.9 30.7-37. [facility] - corpuscular g/dL 3 Good hemoglobin [facility] Hospital [Mass/volume] by Automated count Erythrocyte 15.5 % 11.5-14. Above high normal [facility] - distribution 0 Good width [Ratio] by Taoist Automated count Hospital Platelets 252 K/uL 130-400 [facility] - [#/volume] in Good Blood by Taoist Automated count Hospital Platelet mean 9.3 FL 9.2-11.8 [facility] - volume [Entitic Good volume] in Blood Taoist by Automated Hospital count Segmented 86 % 48.0-72. Above high normal [facility] - neutrophils/100 0 Good leukocytes in [facility] Lymphocytes/100 9 % 18.0-40. Below low normal [facility] - leukocytes in 0 [facility] Blood [facility] Monocytes/100 5 % 2.0-12.0 [facility] - leukocytes in [facility] Blood [facility] Eosinophils/100 0 % 0.0-7.0 [facility] - leukocytes in [facility] Basophils/100 0 % 0.0-3.0 [facility] - leukocytes in [facility] Segmented 7.6 K/UL 1.5-6.6 Above high normal [facility] - neutrophils Good [#/volume] in [facility] Lymphocytes 0.8 K/UL 1.5-3.5 Below low normal [facility] - [#/volume] in [facility] Monocytes 0.4 K/UL 0.0-1.0 [facility] - [#/volume] in [facility] Eosinophils 0.0 K/UL 0.0-0.7 [facility] - [#/volume] in [facility] Basophils 0.0 K/UL 0.0-0.1 [facility] - [#/volume] in [facility] Differential [facility] - cell count [facility] Immature 0 % 0.0-2.0 [facility] - granulocytes/100 [facility] leukocytes in [facility] Automated count ID Date Data Source [id number] 03/14/2019 07:18:48 AM [facility] Bedside and Verbal shift change report g iven to Yuki Ohara RN (oncomingnurse) by Geovanna Vazquez RN (offgoing nurse). Report included the following information SBAR, Kardex, MARand Recent Results. Name Value Range Interpretation Code Description Data [facility] Supporting Document(s ) ID Date Data Source [id number] 03/14/2019 01:21:00 AM [facility] Problem: Altered nutritionGoal: *Optimiz e nutritional statusDescriptionPt meets >75% of estimated kcal and prot needs through out LOSOutcome: Progressing Towards GoalContinuous PEG feeding Name Value Range Interpretation Code Description Data [facility](s) Supporting Document(s ) ID Date Data Source [id number] 03/13/2019 10:38:14 PM [facility] Progress NotePatient: Evelio Carlin Sex: male DOA: 03/11/2019Date of : 1950 Age: 68 y.o. :[id number]:Reyes Carlin is 68 y.o. male who is awake, wearing VM 40 %. He was broughtto the E D for chest congestion, wheeze, fever, tachypnea, and hypoxia.CXR showed no donna dence of acute cardiopulmonary disease. Poor inspiratoryeffort. Gastric distention. He was found with leukocytosis and metabolicacidosis.He had audible respira tory crackles and rhonchi on examination.Pt was admitted with encounter diagnosis of Acute respiratory failure withhypercapnia and hypoxia, Possible pneumonia, likely aspiration, Acute COPD andGastric Distention. Also, diag of Dysphagia s/p jtube, and intellectualdisability.The patient is non verbal and is unable to provide a histor y.He has medical history of Dysphagia, recurrent aspiration pneumonia, s/p g/tc onversion to jtube on 02/16/19, hyperlipidemia,hyperparathyroid,unspecif ied,seizure, large hiatal hernia, anxiety disorder, personal history ofpulmonary e mbolus,COPD, GERD, Schizophrenia, Unspecified,Kyphosis,Parkinsondisease, S evere intellectual disabilities.and Generalized muscle weakness. 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 Pupils are equalNeck: Supple, symmetric al, no adenopathy, no carotid bruit and no JVD.Back: Symmetric, No CVA tenderne ss.Lungs: Bilateral air entry. Diminished breath sound rul. No Wheezing orRhonchi . No rales.Chest wall: No Accessory muscle use.Heart: Regular rate and rhythm, n o murmur, or rubAbdomen: Positive peg, non-tender. Not distended. Bowel sounds normal. NomassesExtremities: Positive contractures lower extremities No edema. No clubbingSkin: Warm and dry. No rashes or lesions. Not JaundicedLymph nodes: C ervical, supraclavicular normal.Psych: Unable to fully assessNeurologic: EOMs i ntact. No facial asymmetry. Positive for nonverbal.Generalized weakness, Alert an d Awake.Intake and Output:Current Shift: No intake/output data recorded.Last three s hifts: 03/12 701 - 03/13 1900In: 3313 [I.V.:2200]Out: 725 [Urine:725]Lab/Data Reviewed:Recent Days:Recent Labs 03/11/1904WBC 10.6 18.6*H GB 12.5* 13.4*HCT 38.4* 41.2*PLT 251 263Recent Labs 03/12/1911 3 03/11/1904NA 138 -- 140 -- 132*K 4.1 -- 4.7 -- 3.9CL 101 - - 100 -- 92*CO2 35* 37* 37* < > 40*GLU 129* -- 98 -- 94BUN 25* -- 19* -- 11CREA 0.39* -- 0.52* -- 0.47*CA 9.4 -- 9.9 -- 9.6MG 2.3 -- 2.1 -- -- PHOS 2.8 -- 3.8 -- --ALB 2.1* -- 2.5* -- 2.7*TBILI -- -- -- -- 0.3SGO T -- -- -- -- 7*ALT -- -- -- -- 11* < > = values in this interval no t displayed.Recent Labs 03/11/1916PH 7.41 7.40 7. 46*PCO2 55* 55* 54*PO2 81* 106 86HCO3 35* 34* 38*FIO2 40.0 50.0 100.0CULTURE, BLOOD [[id number]] (Order [id number])MicrobiologyDate: 03/11/2019 Department: [facility] 3t Med Surg R eleased By/Authorizing:Jessie Neumann MD (auto-released)Specimen Information: Blood Component Value Flag Ref Range Units StatusSpecial Requests: Preliminary NO SPECIAL REQUESTSCulture result: NO GROWTH 2 DAYSCULTURE, BLOOD [[id number]] (Order [id number])MicrobiologyDate: 03/11/2019 Department: [facility] 3t Med Surg Released By/ Authorizing:Jessie Neumann MD (auto-released)Specimen Information: Blo od Component Value Flag Ref Range Units StatusSpecial Requests: Preliminary NO SPECIAL REQUESTSCulture result: NO GROWTH 2 DAYSXr Chest Sngl VResult Date: 2018CHEST one view HISTORY: Followup lung pathology. Comparison is made to previou sstudies. Accounting for differences in technique there has been no significantc hange of right basal infiltrate/effusion. There is a poor inspiratory effortand pa tient rotation towards the right. No other interval change is noted.IMPRESSION: No significant change.Xr Chest PortResult Date: 03/11/2019CHEST one view HISTORY: Fever. COPD. Reflux. COMPARISON: 02/12/2019. Anadditional view was obtained. A tubula r structure overlies the stomach andmidabdomen with some gastric distenti on and elevation of the left hemidiaphragm.There is a poor inspirator y effort which compromises this interpretation. Arepeat study is suggest ed. .There is no gross evidence of congestion,infiltrates, effusions or pne umothorax. Old rib fractures are noted.IMPRESSION: No evidence of acute c ardiopulmonary disease. Poor inspiratoryeffort. Gastric distention.Me dications reviewedCurrent Facility-Administered MedicationsMedicat ion Dose Route Frequency mupirocin (BACTROBAN) 2 % ointment Topical DAILY sodium chloride (NS) flush 5-10 mL 5- 10 mL IntraVENous PRN methylPREDNISolone (PF) (SOLU-MEDROL) injection 40 mg 40 mg IntraVENous Q6H 0.9% sodium chloride in fusion 50 mL/hr IntraVENous CONTINUOUS cinacalcet (SENSIPAR) tablet 60 mg 60 m g Oral DAILY ALPRAZolam (XANAX) tablet 0.25 mg 0.25 mg Per G Tube QHS heparin (por cine) injection 5,000 Units 5,000 Units SubCUTAneous Q12H lamoTRIgine (LaMICtal ) tablet 50 mg 50 mg Per G Tube BID multivitamin (ONE A DAY) tablet 1 Tab 1 Tab Per G Tube DAILY pantoprazole (PROTONIX) granules for oral suspension 40 mg 40 mg Per G TubeACB valproic acid (as sodium salt) (DEPAKENE) 250 mg/5 mL (5 m L) oral solution 750mg 750 mg Per G Tube Q12H acetaminophen (TYLENOL) solution 6 50 mg 650 mg Per G Tube Q4H PRN acetylcysteine (MUCOMYST) 100 mg/mL (10 %) nebulizer solution 400 mg 4 mLInhalation Q12H budesonide (PULMICORT) 500 mcg/2 m l nebulizer suspension 500 mcg [id number] albuterol-ipratropium (DUO-NEB) 2.5 MG-0.5 MG/3 ML 3 mL Nebulization Q6HWA RT piperacillin-tazo bactam (ZOSYN) 3.375 g in 0.9% sodium chloride (MBP/ADV) 100mL MBP 3.375 g In traVENous Q8H vancomycin (VANCOCIN) 1,000 mg in 0.9% sodium chloride 250 mL IVPB 1,0 00 mgIntraVENous [id number]/Plan:Hospital Problems Date Reviewed: 03/13/2019 Codes Class Noted POA Acute respiratory failure with hypoxia (HCC) ICD-10-CM: J9 6.01ICD-9-CM: 518.81 01/10/2019 Unknown Pneumonia ICD-10-CM: J18.9ICD-9-CM: 486 11/08/2018 UnknownAssessment:Acute Respiratory Failure with hypercapnia and hypoxiaPossible PneumoniaAcute COPDLeukocytosisGastric distentionDyspha jaydon S/P recent g/t conversion to jtubeSeizureHyperparathyroidGERD/ Large HHParkinsonismAnxiety disorderSevere intellectual disabilitiesPlan:O2/ BIPAP per pulmContinue IV vancomycin and zosyn per IDNebulizersIv steroids per pulmStart TF Continue officer captain lamictal, depakote, clorazepate (xanax) and sensiparFollow culturesF/u c t Sonia Porras 2018Time: 10:05 PM Name Value Range Interpretation Code Description Data Harriett rce(s) Supporting Document(s ) ID Date Data Source [id number] 03/13/2019 09:19:52 PM [facility] Name Value Range Interpretation Description Data Sup porting Code Source(s) Document(s ) Vancomycin 12.6 10-20 BSCHS - Good [Mass/volume] ug/mL Taoist in Serum or Hospital Plasma --trough (NOTE)Trough levels of 15-20 ug/mL shoul d be targeted for patients withcoagulase negative Staphylococcus and MRSA pneumon ia, endocarditis,osteomyelitis, meningitis, and bacteremia; as well as patients notr esponding to lower levels. Trough levels of 10-15 ug/mL forinfections from other [facility] rces (e.g. urinary tract, cellulitis) areappropriate. All patients receiving c oncomitant nephrotoxic therapiesshould have their function closely monitored regardl ess of peak ortrough levels. ID Date Data Source [id number] 03/13/2019 06:59:56 PM [facility] Bedside and Verbal shift change report g iven to Geovanna Vazquez RN (oncoming nurse)by Yuki Ohara RN (offgoing nurse) . Report included the following information SBAR,Intake/Output, MAR, Recent Results and Cardiac Rhythm SB. Name Value Range Interpretation Code Description Data [facility] rce(s) Supporting Document(s ) ID Date Data Source [id number] 03/13/2019 06:56:43 PM [facility] ID Progress Note03/13/2019Subjective:Betty ient with history of mental retardation,recurrent aspiration pneumon ia wasTransferred from the long-term for fever of 101.2,increase chestcongestion, wheezing and respiratory disrtess.He was febrile to 100.5 on arrivalto the ER wit h elevated wbc of 18,600.Patient is unable to provide history.Blood cx remain negative Pt on BIPAPNon verbal unable to provide historyObjective:Review of Systems: unab le to provideVitals:Patient Vitals for the past 24 hrs: BP Temp Pulse Resp SpO2 Earl t105/13/18 0825 139/64 97.3 F (36.3 C) (!) 52 20 100 % -03/13/19 0630 - - - - - 58. 5 kg (129 lb)03/13/19 0340 - - - - 96 % -03/13/19 0337 114/55 96.8 F (36 C) (! ) 53 20 97 % -03/13/19 0028 115/53 97.9 F (36.6 C) 69 20 97 % -03/12/192099 - - - - 95 % -03/12/19 2035 135/72 96.2 F (35.7 C) 64 28 90 % -03/12/192008 - - - - 96 % -03/12/19 1641 133/64 97.6 F (36.4 C) 65 28 96 % -Tmax: Temp (24hrs), Av.2 F (36.2 C), Min:96.2 F (35.7 C), Max:97.9 F(36.6 C)Physical Exam:General: Lethar gic,non verbal on BiPAP cooperative, no distress, appears statedage.Eyes: Conju nctivae/corneas clear. PERRLNeck: Supple, symmetrical, trachea midline, no adenopa thyLungs: Bilateral breath sounds with basal crackles..Heart: Regular rate and rhythm, S1, S2 normal, no murmurAbdomen: Soft, non-tender. Bowel sounds normal. N o masses, Noorganomegaly.peg+Back: No CVA tenderness.Extremities: Contracted chron ic lymphedemaPulses: 2+ and symmetric all extremities.Skin: Skin color, texture, t urgor normal. No rashes or lesionsLymph nodes: Cervical, supraclavicular, and ax illary nodes normal.Neurologic: Non verbal functional quadriplegia Current Facility -Administered MedicationsMedication Dose Route Frequency mupirocin (BACTROBAN) 2 % ointment Topical DAILY sodium chloride (NS) flush 5-10 mL 5-10 mL IntraVENous PRN methylPREDNISolone (PF) (SOLU-MEDROL) injection 40 mg 40 mg IntraVENous Q6H 0.9% sodium chloride infusion 50 mL/hr IntraVENous CONTINUOUS cinacalcet (SENS IPAR) tablet 60 mg 60 mg Oral DAILY ALPRAZolam (XANAX) tablet 0.25 mg 0.25 mg Per G Tube QHS heparin (porcine) injection 5,000 Units 5,000 Units SubCU TAneous Q12H lamoTRIgine (LaMICtal) tablet 50 mg 50 mg Per G Tube BID multivitami n (ONE A DAY) tablet 1 Tab 1 Tab Per G Tube DAILY pantoprazole (PROTONIX) granules for oral suspension 40 mg 40 mg Per G TubeACB valproic acid (as sodium salt) (DEPAKENE) 250 mg/5 mL (5 mL) oral solution 750mg 750 mg Per G Tube Q12H acetamino phen (TYLENOL) solution 650 mg 650 mg Per G Tube Q4H PRN acetylcysteine (MUCOMYST) 100 mg/mL (10 %) nebulizer solution 400 mg 4 mLInhalation Q12H budesonide (PULMICORT ) 500 mcg/2 ml nebulizer suspension 500 mcg [id number] albuterol-ipratropium (DUO-NEB) 2.5 MG-0.5 MG/3 ML 3 mL Nebulization Q6HWA RT piperacillin-tazo bactam (ZOSYN) 3.375 g in 0.9% sodium chloride (MBP/ADV) 100mL MBP 3.375 g In traVENous Q8H vancomycin (VANCOCIN) 1,000 mg in 0.9% sodium chloride 250 mL IVPB 1,0 00 mgIntraVENous H74TZvhm:Recent Labs 03/12/1906WB C 10.6 -- 18.6*HGB 12.5* -- 13.4*PLT 251 -- 263BUN 25* 19* 11CREA 0.39* 0.52* 0. 47*SGOT -- -- 7*AP -- -- 66TBILI -- -- 0.3Cultures:No results found for: S DESLab ResultsComponent Value Date/Time Culture result: NO GROWTH 2 DAYS 04:14 AM Culture result: NO GROWTH 2 DAYS 03/11/2019 04:14 AM Culture result: NO Carol ENCARNACION 5 DAYS 02/08/2019 05:19 PMRadiology:No results found.Assessment: Suspect recur rent aspiration pneumonia. Acute COPD exacerbation Acute respiratory failure. Dysphagia R/o sepsis. Plan:1. Continue IV Vancomycin and IV zosyn2. Follow culture Monica Gomez MDNovember AM Name Value Range Interpretation Code Description Data Harriett rce(s) Supporting Document(s ) ID Date Data Source [id number] 03/13/2019 05:02:11 PM EST [facility] Progress NoteMID-[facility] ,P.C.Krystian Monae MD., F.C.C.P.Stella Hamilton MD., F.C.C.P. [address] [place] [address] [phone]: Evelio Carlin Sex: male DOA: 03/11/2019D ate of : 1950 Age: 68 y.o. LOS: LOS: 2 daysSubjective:HE IS MUCH MORE AWAKE AND COMFORTABLE TODAY , PATIENT PUULS OFF HISBIPAP. ACUTE R RE SPIRATORY DISTRESS HAVE IMPROVED .Evelio is a 68 y.o. male who presents from [facility] with medical history ofDysphagia, recurrent aspiration pneumonia, s/p g/t conversion to jtube on02/16/19, hyperlipidemia,hyperparathyroid, unspeci fied,seizure, large hiatalhernia, anxiety disorder, personal history of pulmonary embolus,COPD, GERD,Schizophrenia, Unspecified,Kyphosis,Parkinson disease, Severe intellectualdisabilities.and Generalized muscle weakness.Pt was trans ferred to the ED; he was noted having chest congestion and wheezing.Nebulizer treatm ent given with no improvement. He had visible difficulty inbreathing. He was found wit h fever, temp 101.2, tachypneic, and hypoxia oyrgP2BNO of 90 %on 4 LPM O2 via NC. Tyl enol was given.In the ED, temp was 99.2 and pt was tachypneic.CXR showed No evidence of acute cardiopulmonary disease. Poor inspiratoryeffort. Gastric distention.Hi s labs were remarkable for Leukocytosis (19,000) and CO2 of 40. Onexamination p t was found with audible respiratory crackles and rhonchi. Pt isbeing admitted with i nitial encounter diagnosis of Pneumonia.Pt is non verbal and is unable to participate with his history.Pt was seen and examined at bedside, he is lethargic, but easily shelly usable. Heis wearing NRB mask.IV vancomycin 1gm for one dose, Solu Medrol and IV flu ids were ordered earlierthis morning. ABG with a pH 7.46/54/86/38/O2SAT 98 % on FI O2 100 % NRB Mask. 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 No pe rtinent family history. No Known Allergies Social History Tobacco Use S moking status: Never Smoker Smokeless tobacco: Never UsedSubstance Use Topics Alcohol use: NoHistory reviewed. No pertinent family history.No Known Allerg iesPrior to Admission medicationsMedication Sig Start Date End Date Taking? Authoriz ing Providercefepime 2 gram 2 g IVPB 2 g by IntraVENous route every eight (8) hours. 02/12/19 MalmazadaChristos, MDheparin sodium,porcine (HEPARIN, PORCINE,) 5,000 unit/mL injection 1 mL bySubCUTAneous route every twelve (12) hours every twelve (12 ) hours. 02/12/19 Malmazada, Christos, MDpantoprazole (PROTONIX) 40 mg granules for oral suspension 40 mg by Per NG tuberoute Daily (before breakfast). 02/13 Malmazada, Christos, MDpredniSONE (DELTASONE) 10 mg tablet Take 20 mg by m outh daily. 02/12/19 Malmazada, Christos, MDpredniSONE (DELTASONE) 10 mg tablet Ta ke 10 mg by mouth daily (with breakfast).02/12/19 Christos Lopez, MDmultivitamin (MULTI-DELYN, WELLESSE) liqd 5 mL by Per G Tube route daily. Pro vider, Historicalvalproic acid, as sodium salt, (DEPAKENE) 250 mg/5 mL (5 mL) soln oral [id number] mg by Per G Tube route every twelve (12) hours. Provider, Historicalacetylcysteine (MUCOMYST) 100 mg/mL (10 %) nebulizer solution Take 4 m L byinhalation two (2) times a day. Provider, Historicalzinc oxide 10 % topi inez cream Apply to affected area daily. Ribbon around GTsite Provider, His toricalomeprazole (PRILOSEC) 2 mg/mL susp 2 mg/mL oral suspension (compounded) 40 mg byPer G Tube route daily. Provider, Historicalsilver sulfADIAZINE (SILVADENE ) 1 % topical cream Apply to affected area two(2) times a day. 1 inch ribbon- right edge Provider, Historicalacetaminophen (TYLENOL) 32MG/ML soln solution Take 20. 3 mL by mouth every four(4) hours as needed for Pain or Fever. 01/24/19 Mili Hills DOinfluenza vaccine 2019-, 65 yrs+,,PF, (FLUZONE HIGH-DOSE) syrg injec tion 0.5mL by IntraMUSCular route PRIOR TO DISCHARGE. 01/24/19 Mili Hills DOcholestyramine-aspartame (QUESTRAN LIGHT) 4 gram packet Take 1 Packet by mouthtwo (2) times a day.Patient taking differently: 4 g two (2) times a day. Via G tube. 01/24 Mili Hills DOclorazepate (TRANXENE) 3.75 mg tablet 1 Tab by Per G Tube route nightly. MaxDaily Amount: 3.75 mg. 12/30/18 Mili Hills DOcinajenn alcet (SENSIPAR) 30 mg tablet Take 2 Tabs by mouth daily.Patient taking differently: 60 mg daily. Via G tube 12/30/18 Mili HillsDOlamoTRIgine (LAMICTAL) 25 mg t ablet 2 Tabs by Per G Tube route two (2) times aday. 12/30/18 Mili Hills DOalbuterol-ipratropium (DUO-NEB) 2.5 mg-0.5 mg/3 ml nebu 3 mL by Nebulizationroute e very six (6) hours. Every 6 hours while awake 12/30/18 Mili Hills DObudesonide (PULMICORT) 0.5 mg/2 mL nbsp 2 mL by Nebulization route two (2) timesa day. Mili Hills DObacitracin 500 unit/gram ointment Apply 1 Packet to aff ected area two (2) timesa day. Indications: minor skin infection due to bacteria, fa cial scabs 12/30/18 Mili Hills DO REVIEW OF SYSTEMS: SLIGHTLY MORE AWAKE , NO ROS CANNOT BE DONEGeneral: POSITIVE for fever, chills, sweats, we aknessEyes: negative for blurred vision, eye pain, loss of vision, diplopiaEar Nose a nd Throat: negative for rhinorrhea, pharyngitis, otalgia, tinnitus,speech or swallowing difficultiesRespiratory: POSITIVE + for cough, sputum produ ction, +SOB,+ wheezing,DAVALOS, pleuritic painCardiology: negative for chest pain , palpitations, orthopnea, PND, edema,syncopeGastrointestinal: negative for abdominal pain, N/V, dysphagia, change in bowelhabits, bleedingGenitourinary: nega tive for frequency, urgency, dysuria, hematuria,incontinence, DISTENDED STOMA CH .Muskuloskeletal : negative for arthralgia, myalgiaHematology: negative for easy bruising, bleeding, lymphadenopathyDermatological: negative for rash, ulceration, mole change, new lesionEndocrine: negative for hot flashe s or polydipsiaNeurological: negative for headache, dizziness, confusion, focal we akness,paresthesia, memory loss, gait disturbancePsychological: negative for a nxiety, depression, agitation Objective:Vital Signs:Patient Vitals for the past 24 hrs: BP Temp Pulse Resp SpO2 Fkjjdh44/29/19 1606 137/67 98.2 F (36.8 C) 63 20 91 % -03/13/19 1308 135/65 98.1 F (36.7 C) 67 18 92 % -03/13/19 0825 139/ 64 97.3 F (36.3 C) (!) 52 20 100 % -03/13/19 0630 - - - - - 58.5 kg (129 lb )03/13/19 0340 - - - - 96 % -03/13/19 0337 114/55 96.8 F (36 C) (!) 53 20 97 % -1 05/13/18 0028 115/53 97.9 F (36.6 C) 69 20 97 % -03/12/192099 - - - - 95 % - 2035 135/72 96.2 F (35.7 C) 64 28 90 % -03/12/192008 - - - - 96 % -Pulse OX:Sp O2 Readings from Last 6 Encounters:03/13/19 91%02/19/19 96%02/18/19 92%01/24/19 93%0 12/30/18 96%11/27/18 91%@LASTSAO2(6)@Physical Exam:MORE AWAKE , COMFORTABLE TODAY .S EVERE MENTAL RETARDATION+. General: Alert, cooperative, no distress, appears stated age. Head: Normocephalic, without obvious abnormali ty, atraumatic. Eyes: Conjunctivae/corneas clear. PERRL, EOMs intact. Nose: Nares normal. No drainage or sinus tenderness Thr oat: Lips, mucosa, and tongue normal Neck: Supple, symmetrical, trachea midline, no adenopathy,thyroid: no enlargement/tenderness/nodules, no carot id bruit and no JVD. Lungs: IMPROVED AIR EXCHANGE IN BOTH LUNGS , WHEEZING ANDRHONCHI ARE LESS to auscultation bilaterally. Chest Wall: No tenderness or deformity. Heart: Regular rate and rhythm, S1, S2 normal , no murmur, click,rub or gallop. Abdomen: P E G IS +. Soft, non-tender. Bowel sounds normal. No masses, No organomegaly. Extremities: Extremities normal, atrau matic, no cyanosis or edema. Pulses: 4+ bilaterally. Skin: Ski n color, texture, turgor normal. No rashes or lesions. Neurologic: CNII-XII intact. No focal motor or sensory deficit.Intake and Output:Last three shifts: 03/11 190 - 03/13 0700In: 2483 [I.V.:2240]Out: 250 [Urine:250]Lab Results:Recent Results (f rom the past 24 hour(s))GLUCOSE, POC Collection Time: 03/12/19 9:55 PMResult Value Ref Range Glucose, bedside 120 (H) 65 - 110 MG/DLGLUCOSE, POC Collection Time: 03/13/19 7:15 AMResult Value Ref Range Glucose, bedside 129 (H) 65 - 110 MG/DLR ENAL FUNCTION PANEL Collection Time: 03/13/19 7:49 AMResult Value Ref Range Sodium 13 8 136 - 145 mmol/L Potassium 4.1 3.5 - 5.1 mmol/L Chloride 101 98 - 107 mmol/L CO2 35 (H) 21 - 32 mmol/L Anion gap 6 (L) 10 - 20 mmol/L Glucose 129 (H) 74 - 106 mg/dL BU N 25 (H) 7 - 18 mg/dL Creatinine 0.39 (L) 0.70 - 1.30 mg/dL GFR est AA >60 >60 ml/ min/1.73m2 GFR est non-AA >60 >60 ml/min/1.73m2 Calcium 9.4 8.5 - 10.1 mg/ dL Phosphorus 2.8 2.5 - 4.9 mg/dL Albumin 2.1 (L) 3.5 - 4.7 g/dLMAGNESIUM Collection T jose alejandro: 03/13/19 7:49 AMResult Value Ref Range Magnesium 2.3 1.6 - 2.6 mg/dLCBC WITH AU TOMATED DIFF Collection Time: 03/13/19 7:49 AMResult Value Ref Range WBC 10.6 4.8 - 10.6 K/uL RBC 3.94 (L) 4.70 - 6.00 M/uL HGB 12.5 (L) 14.0 - 18.0 g/dL HCT 38.4 (L) 4 2.0 - 52.0 % MCV 97.5 (H) 81.0 - 94.0 FL MCH 31.7 27.0 - 35.0 PG MCHC 32.6 30.7 - 37. 3 g/dL RDW 15.9 (H) 11.5 - 14.0 % PLATELET 251 130 - 400 K/uL MPV 9.9 9.2 - 11.8 FL NEUTROPHILS 92 (H) 48 - 72 % LYMPHOCYTES 6 (L) 18 - 40 % ATYPICAL LYMPHS 1 (H) 0 % MONOCYTES 1 (L) 2 - 12 % RBC COMMENTS NORMOCYTIC, NORMOCHROMIC PLATELET ESTIMA TE ADEQUATE DF AUTOMATED ABS. NEUTROPHILS 9.7 K/UL ABS. LYMPHOCYTES 0.6 K/UL ABS. MONO CYTES 0.3 K/UL ABS. EOSINOPHILS 0.0 K/UL ABS. BASOPHILS 0.0 K/ULABG:Recent Labs 03/11/1916PH 7.41 7.40 7.46*PCO2 55* 55* 54*PO2 81* 106 86HCO3 35* 34* 38*FIO2 40.0 50.0 100.0Recent Glucose Results:Lab ResultsComponent Value Date/ Time GLU 129 (H) 03/13/2019 07:49 AM GLUCPOC 129 (H) 03/13/2019 07:15 AM GLUCPOC 120 (H) 03/12/2019 09:55 PM@[email or web address] icro Results Procedure Component Value Units Date/Time CULTURE, BLOOD [[id number]] Col lected: 03/11/19413 Order Status: Completed Specimen: Blood Updated: 728 Special Requests: NO SPECIAL REQUESTS Culture result: NO GROWTH 2 DA YS CULTURE, BLOOD [[id number]] Collected: 03/11/19413 Order Status: Completed S pecimen: Blood Updated: 03/13/19728 Special Requests: NO SPECIAL REQUESTS C ulture result: NO GROWTH 2 DAYSImages:[email or web address] Chest Sngl V Result Date: 02/12/2019CHEST one view HISTORY: Followup lung pathology. Compar garth is made to previousstudies. Accounting for differences in technique there has b een no significantchange of right basal infiltrate/effusion. There is a poor ins piratory effortand patient rotation towards the right. No other interval change is n oted.IMPRESSION: No significant change.Xr Chest PortResult Date: 03/11/2019CHEST o ne view HISTORY: Fever. COPD. Reflux. COMPARISON: 02/12/2019. Anadditional vie w was obtained. A tubular structure overlies the stomach andmidabdomen with some rosa rodger distention and elevation of the left hemidiaphragm.There is a poor inspirator y effort which compromises this interpretation. Arepeat study is suggest ed. .There is no gross evidence of congestion,infiltrates, effusions or pne umothorax. Old rib fractures are noted.IMPRESSION: No evidence of acute c ardiopulmonary disease. Poor inspiratoryeffort. Gastric distention.Me dications:Current Facility-Administered MedicationsMedication Dose Route Frequen cy mupirocin (BACTROBAN) 2 % ointment Topical DAILY sodium chloride (NS) flus h 5-10 mL 5-10 mL IntraVENous PRN methylPREDNISolone (PF) (SOLU-MEDROL) in jection 40 mg 40 mg IntraVENous Q6H 0.9% sodium chloride infusion 50 mL/hr Intra VENous CONTINUOUS cinacalcet (SENSIPAR) tablet 60 mg 60 mg Oral DAILY ALPRAZol am (XANAX) tablet 0.25 mg 0.25 mg Per G Tube QHS heparin (porcine) injection 5,000 U nits 5,000 Units SubCUTAneous Q12H lamoTRIgine (LaMICtal) tablet 50 mg 50 mg Per G Tube BID multivitamin (ONE A DAY) tablet 1 Tab 1 Tab Per G Tube DAILY pa ntoprazole (PROTONIX) granules for oral suspension 40 mg 40 mg Per G TubeACB v alproic acid (as sodium salt) (DEPAKENE) 250 mg/5 mL (5 mL) oral solution 750mg 750 mg Per G Tube Q12H acetaminophen (TYLENOL) solution 650 mg 650 mg Per G Tube Q4H P RN acetylcysteine (MUCOMYST) 100 mg/mL (10 %) nebulizer solution 400 mg 4 mLInhala tion Q12H budesonide (PULMICORT) 500 mcg/2 ml nebulizer suspension 500 mcg Nebuliz [id number] albuterol-ipratropium (DUO-NEB) 2.5 MG-0.5 MG/3 ML 3 mL Nebulization Q6 HWA RT piperacillin-tazobactam (ZOSYN) 3.375 g in 0.9% sodium chloride (MBP/ADV) 100m L MBP 3.375 g IntraVENous Q8H vancomycin (VANCOCIN) 1,000 mg in 0.9% sodium chlor wade 250 mL IVPB 1,000 mgIntraVENous [id number] Problems: Pneumonia (11/09/19 19) Acute respiratory failure with hypoxia (HCC) (01/10/2019)Assessment:1. ACUTE HY PERCAPNIC WITH HYPOXIC RESPIRATORY FAILURE IMPROVING SLOWLY2. POSSIBLE PNEUMONIA L L L3. AC COPD4. METABOLIC ENCEPHALOPATHY5. MENTAL RETARDATION6. DYSPHAGIA7. GASTRIC DISTENTION8. SCHIZOPHRENIA9. CHEST XRAY SHOWS C OPD , ELEVATED LEFT HEMIDIAPHRAGM , VOLUME LOSS ?INF. LLL Plan:1. CULTURE BLOOD , URINE , SPUTUM2. CONT WITH ZOSYN AND I V VANCOMYCIN3. DUO NEB Q 4 H4. NE EDS BIPAP SUPPORT FOR VENTILATION AT NIGHT5. CONT I V SOLUMEDROL6. PUT PEG TO SUCTION TILL GASTRIC DISTENTION IS RESOLVED7. I V HYDRATION8. TRIAL OF 5 L NA O2 DAYS , KEEP SPO2 > 92 %9. REPEAT CBC , BMP IN AM Krystian Monae MD F.C.C.P.March 13, 20194:53 PM Name Value Range Interpretation Code Description Data Harriett rce(s) Supporting Document(s ) ID Date Data Source [id number] 03/13/2019 04:22:08 PM [facility] RECOMMENDATIONS:Suggest change EN to Osm olite 1.5@50mL/hr with 30mL prostat daily with 100mLfree H2O Q 3hr. (recommend ch raysa in EN as pt on Osmolite 1.5 PRODUCTION HELPER)NUTRITION ASSESSMENT MST ScreenSubje ctive: RN reports pt tolerating EN. Per transfer records, previouslyreceiving Os molite 1.5. 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) Pneumonia Psychiatric disor bassem schizophrenia Pulmonary emboli (HCC) Schizophrenia (HCC)Diet Order:Active Ord ersThere are no active orders of the following types: Diet.Pulmocare@50mL/hr, 85mL free H2O Q 3hr (1800kcal,75gm prot, 1622mL free H2O)Allergies: Patient has n o known allergies.Labs:CMP:Lab ResultsComponent Value Date/Time NA 138 03/13/2019 07:49 AM K 4.1 03/13/2019 07:49 AM CL 101 03/13/2019 07:49 AM CO2 35 (H) 07:49 AM AGAP 6 (L) 03/13/2019 07:49 AM GLU 129 (H) 03/13/2019 07:49 AM BUN 2 5 (H) 03/13/2019 07:49 AM CREA 0.39 (L) 03/13/2019 07:49 AM GFRAA >60 03/13/2019 07:49 AM GFRNA >60 03/13/2019 07:49 AM CA 9.4 03/13/2019 07:49 AM MG 2.3 9 07:49 AM PHOS 2.8 03/13/2019 07:49 AM ALB 2.1 (L) 03/13/2019 07:49 AMNutritionally Significant Meds: NS@50mL/hr, sensipar, solu-medrolAssessmentLast 3 Recorded Earl ghts in this Encounter 03/11/19 0403 03/12/19 0715 03/13/19 0630Weight: 61.2 kg (135 l b) 56 kg (123 lb 6.4 oz) 58.5 kg (129 lb)Height: 5' 2" (157.5 cm)Body mass ind ex is 23.59 kg/m .UBW: 125-135 chart review %UBW: 100IBW: 118 %IBW: 109Wt Reading s from Last 3 Encounters:03/13/19 58.5 kg (129 lb)02/19/19 61.2 kg (135 lb) 9 61.2 kg (135 lb)Nutrition Focused Physical Assessment:[] AcceptableTemple Region Mu scle Wasting-ModerateOrbital Region Fat Loss-ModerateOral/GI Issues:G tube conve rsion to J tube per MD notesSkin:Abrasion; butch score 11Edema:Peripheral Vascular (WDL): Exceptions to Within Defined LimitsLLE: 2+RLE: 2+Appetite: N/A% Meal Intake:N/ANo data found.Fluid Intake:Intake/Output Summary (Last 24 ho urs) at 03/13/2019 1512Last data filed at 03/13/2019 0849Gross per 24 hourIntake 1 943 mlOutput 250 mlNet 1693 mlNutrition Rx: 1770-2065kcal; 74-89g protein (1.25-1.5g /kg); 1770-2065ml fluid(1ml/kcal)[based on:30-35 Kcal/kg risk of skin breakdown] % Estimated Energy Needs Met: 75-100%% Estimated Protein Needs Met: 75-100%% Fl uid Needs Met: 75-100%Education Needs: [x] Not indicated at this time [] Indica mikel at this timeNutrition DiagnosisIncreased protein and energy needs related to risk of skin breakdown asevidenced by butch score 11Intervention:Suggest change EN t o Osmolite 1.5@50mL/hr with 30mL prostat daily (1900kcal,90gm prot, 244gm CHO, 59 gm fat, 914mL free H2O) with 100mL free H2O Q 3hr.(recommend change in EN as pt on Osm olite 1.5 PRODUCTION HELPER)Goals:Pt meets >75% of estimated kcal and prot needs throughout LOSMonitoring and EvaluationFollow EN/PN RxMonitor skin integrityDischarge Planni ng:EN as recommended above [x] No cultural, quaker, or ethnic dietary needs ident ified [] Cultural, quaker and ethnic food preferences identified and addressed [] Participated in care plan, discharge planning/Interdisciplinary roundsFrances R Olga, RD Name Value Range Interpretation Code Description Data [facility] Supporting Document(s ) ID Date Data Source [id number] 03/13/2019 11:51:12 AM [facility] Pt off the bipap / placed on aerosol mas k 40%/ vital signs stable/ Assessed thept for skin breakdown with RN / no skin break d own noted/ will monitor daily forskin break down/ Name Value Range Interpretation Code Description Data [facility](s) Supporting Document(s ) ID Date Data Source [id number] 03/13/2019 07:55:51 AM [facility] Bedside and Verbal shift change report carol pham to Teresa García RN (oncoming nurse) Shawn PITTS (offgoing nurse). Report included the following information SBAR,Kardex, Intake/Output, MAR, Recent Results and M ed Rec Status. Name Value Range Interpretation Code Description Data [facility] rce(s) Supporting Document(s ) ID Date Data Source [id number] 03/13/2019 09:40:18 AM EST [facility] Name Value Range Interpretation Description Data Sup porting Code Source(s) Document(s ) Leukocytes 10.6 4.8-10.6 [facility] - [#/volume] in K/uL Good Blood by [facility] Autom[facility] count Hospital Erythrocytes 3.94 4.70-6.0 Below low normal [facility] - [#/volume] in M/uL 0 Good Blood by [facility] Hemoglobin 12.5 14.0-18. Below low normal [facility] - [Mass/volume] in g/dL 0 Good Blood [facility] Hematocrit 38.4 % 42.0-52. Below low normal [facility] - [Volume 0 Good Fraction] of Tao[facility] Blood by Hospital Automated count Erythrocyte mean 97.5 FL 81.0-94. Above high normal [facility] - corpuscular 0 Good volume [Entitic Taoist volume] by Hospital Automated count Erythrocyte mean 31.7 PG 27.0-35. [facility] - corpuscular 0 Good hemoglobin Taoist [Entitic mass] Hospital by Automated count Erythrocyte mean 32.6 30.7-37. [facility] - corpuscular g/dL 3 Good hemoglobin [facility] [Mass/volume] by Automated count Erythrocyte 15.9 % 11.5-14. Above high normal [facility] - distribution 0 Good width [Ratio] by [facility] Autom[facility] count Hospital Platelets 251 K/uL 130-400 [facility] - [#/volume] in Good Blood by [facility] Platelet mean 9.9 FL 9.2-11.8 [facility] - volume [Entitic Good volume] in Blood [facility] by Automated Hospital count Segmented 92 % 48-72 Above high normal [facility] - neutrophils/100 Good leukocytes in Tao[facility] Blood by Manual Hospital count Lymphocytes/100 6 % 18-40 Below low normal [facility] - leukocytes in Good Blood by Manual [facility] count Hospital Variant 1 % 0 Above high normal [facility] - lymphocytes/100 Good leukocytes in [facility] Blood by Manual Hospital count Monocytes/100 1 % 2-12 Below low normal [facility] - leukocytes in [facility] Blood by Manual [facility] Erythrocyte [facility] - morphology Good finding Taoist [Identifier] in Hospital Blood Platelet [facility] - adequacy Good [Presence] in Taoist Blood by Light [facility] microscopy Differential [facility] - cell count Good method - [facility] Segmented 9.7 K/UL [facility] - neutrophils Good [#/volume] in [facility] Lymphocytes 0.6 K/UL [facility] - [#/volume] in [facility] Monocytes 0.3 K/UL [facility] - [#/volume] in [facility] Eosinophils 0.0 K/UL [facility] - [#/volume] in [facility] Basophils 0.0 K/UL [facility] - [#/volume] in [facility] ID Date Data Source [id number] 03/13/2019 09:23:50 AM EST [facility] Name Value Range Interpretation Description Data Sup porting Code Source(s) Document(s ) Sodium 138 136-145 [facility] [Moles/volume] mmol/L Taoist in Serum or Hospital Plasma Potassium 4.1 3.5-5.1 [facility] [Moles/volume] mmol/L Taoist in Serum or Hospital Plasma Chloride 101 98-107 [facility] [Moles/volume] mmol/L Taoist in Serum or Hospital Plasma Carbon 35 21-32 Above high normal [facility] dioxide, total mmol/L Taoist [Moles/volume] Hospital in Serum or Plasma Anion gap in 6 mmol/L 10-20 Below low normal [facility] - Go od Serum or [facility] Plasma Hospital Glucose 129 74-106 Above high normal [facility] [Mass/volume] mg/dL Taoist in Serum or Hospital Plasma Urea nitrogen 25 mg/dL 7-18 Above high normal [facility] [Mass/volume] Taoist in Serum or Hospital Plasma Creatinine 0.39 0.70-1.3 Below low normal [facility] [Mass/volume] mg/dL 0 Taoist in Serum or Hospital Plasma Glomerular >60 [facility] - [facility] filtration Taoist rate/1.73 sq M Hospital predicted among blacks [Volume Rate/Area] in Serum or Plasma by Creatinine-bas ed formula (MDRD) Glomerular >60 [facility] - Good filtration Taoist rate/1.73 sq M Hospital predicted among non-blacks [Volume Rate/Area] in Serum or Plasma by Creatinine-bas ed formula (MDRD) Calcium 9.4 8.5-10.1 [facility] [Mass/volume] mg/dL Taoist in Serum or Hospital Plasma Phosphate 2.8 2.5-4.9 [facility] [Mass/volume] mg/dL Taoist in Serum or Hospital Plasma Albumin 2.1 g/dL 3.5-4.7 Below low normal [facility] [Mass/volume] Taoist in Serum or Hospital Plasma by Bromocresol purple (BCP) dye binding method ID Date Data Source [id number] 03/13/2019 09:23:50 AM [facility] Name Value Range Interpretation Description Data Sup porting Code Source(s) Document(s ) Magnesium 2.3 mg/dL 1.6-2.6 [facility] [Mass/volume] Taoist in Serum or Hospital Plasma ID Date Data Source [id number] 03/13/2019 07:22:36 AM [facility] Review BIPAP settings, alarms and skin a dhesive with next shift [facility] wiped down with bleach wipes Name Value Range Interpretation Code Description Data Harriett rce(s) Supporting Document(s ) ID Date Data Source [id number] 03/13/2019 07:38:46 AM EST [facility] Name Value Range Interpretation Description Data Sup porting Code Source(s) Document(s ) Glucose 129 MG/DL 65-110 Above high normal [facility] [Mass/volume] Taoist in Blood by Hospital Automated test strip ID Date Data Source [id number] 03/12/2019 11:56:08 PM [facility] Progress NotePatient: Evelio Carlin Sex: male DOA: 03/11/2019Date of : 1950 Age: 68 y.o. :[id number]:Reyes Carlin is 68 y.o. male who is awake wearing BIPAP. His jtube wasplaced to avity, no drainage present in the suction cup. He was brought tot ED for chest congestion, wheeze, fever, tachypnea, and hypoxia.CXR showed no evidence of acute cardiopulmonary disease. Poor inspiratoryeffort. Gastric distention. He was found with leukocytosis and metabolicacidosis.He had audible respira tory crackles and rhonchi on examination.Pt was admitted with diagnosis of Acute res piratory failure with hypercapnia andhypoxia, Possible pneumonia, likely aspiration, A cute COPD and GastricDistention. Also, diag of Dysphagia s/p jtube, and intellectua l disability.The patient is non verbal and is unable to provide a history.He has medic al history of Dysphagia, recurrent aspiration pneumonia, s/p g/tconversion to jtube on 02/16/19, hyperlipidemia,hyperparathyroid,unspecif ied,seizure, large hiatal hernia, anxiety disorder, personal history ofpulmonary e mbolus,COPD, GERD, Schizophrenia, Unspecified,Kyphosis,Parkinsondisease, S evere intellectual disabilities.and Generalized muscle weakness.Past Medical History:Diagnosis Date Chronic obstructive pulmonary disease (HCC) Diaphragmatic h ernia without obstruction and without gangrene GERD (gastroesophageal reflux disease) Hyperparathyroidism (HCC) Mental retardation 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 Pupils are equalThro at: Lips, mucosa, and tongue normal. No ThrushNeck: Increased muscle tone, no adenopathy, no carotid bruit and no JVD.Lungs: Bilateral air entry, posit britni decreased breath sound at bases.. NoWheezing or Rhonchi. No rales.Chest wa ll: No Accessory muscle use.Heart: Regular rate and rhythm, no murmur, or rub.Abdomen: Positive peg to drainage, non-tender. Not distended. Bowel sounds normal. No massesExtremities: Positive contractures lower extremities. atraumat ic, No cyanosis.No edema. No clubbingSkin: Warm and dry. No rashes or lesions. No t JaundicedLymph nodes: Cervical, supraclavicular normal.Psych: unable t o assess.Neurologic: EOMs intact. No facial asymmetry. Positive nonverbal, Generaliz edweakness., Alert and AwakeIntake and Output:Current Shift: 03/12 1901 - 02/14 0700In: -Out: 250 [Urine:250]Last three shifts: 03/11 701 - 03/12 1900In: 3423 [I.V.:3180]Out: 0Lab/Data Reviewed:Recent Days:Recent Labs WBC 18.6*H GB 13.4*HCT 41.2*PLT 263Recent Labs 03/12/1906NA -- 140 -- -- 132*K -- 4.7 -- -- 3.9CL -- 100 -- -- 9 2*CO2 37* 37* 36* < > 40*GLU -- 98 -- -- 94BUN -- 19* -- -- 11CREA -- 0.52* -- -- 0.47*CA -- 9.9 -- -- 9.6MG -- 2.1 -- -- --PHOS -- 3. 8 -- -- --ALB -- 2.5* -- -- 2.7*TBILI -- -- -- -- 0.3SGOT - - -- -- -- 7*ALT -- -- -- -- 11* < > = values in this interval not di splayed.Recent Labs 03/11/19168 808PH 7.41 7.40 7. 46*PCO2 55* 55* 54*PO2 81* 106 86HCO3 35* 34* 38*FIO2 40.0 50.0 100.0Valproic acid 78C ULTURE, BLOOD [[id number]] (Order [id number])MicrobiologyDate: 03/11/2019 D epartment: [facility] Released By/Authorizing:Jessie Neumann MD (auto-released)Specimen Information: Blood Component Value Flag Ref Range Units Sta tusSpecial Requests: PreliminaryNO SPECIAL REQUESTSCulture result: NO GROWT H 1 DAYCULTURE, BLOOD [[id number]] (Order [id number])MicrobiologyDate: 03/11/2019 D epartment: [facility] Released By/Authorizing:Jessie Neumann MD (auto-released)Specimen Information: Blood Component Value Flag Ref Range Units Sta tusSpecial Requests: PreliminaryNO SPECIAL REQUESTSCulture result: NO GROWT H 1 DAYXr Chest Sngl VResult Date: 02/12/2019CHEST one view HISTORY: Follow up lung pathology. Comparison is made to previousstudies. Accounting for differen martine in technique there has been no significantchange of right basal infiltr ate/effusion. There is a poor inspiratory effortand patient rotation towards the r ight. No other interval change is noted.IMPRESSION: No significant change. Xr Chest PortResult Date: 03/11/2019CHEST one view HISTORY: Fever. COPD. Reflux. JOSE RISON: 02/12/2019. Anadditional view was obtained. A tubular structure overlies t he stomach andmidabdomen with some gastric distention and elevation of the left hem idiaphragm.There is a poor inspiratory effort which compromises this interpretation. A repeat study is suggested. .There is no gross evidence of congestion,infiltrates, effu sions or pneumothorax. Old rib fractures are noted.IMPRESSION: No evidence of acute c ardiopulmonary disease. Poor inspiratoryeffort. Gastric distention.Me dications reviewedCurrent Facility-Administered MedicationsMedicat ion Dose Route Frequency [START ON 03/13/2019] mupirocin (BACTROBAN) 2 % oi ntment Topical DAILY sodium chloride (NS) flush 5-10 mL 5-10 mL IntraVENous PRN methylPREDNISolone (PF) (SOLU-MEDROL) injection 40 mg 40 mg IntraVENous Q6H 0.9% sodium chloride infusion 50 mL/hr IntraVENous CONTINUOUS cinacalcet (SENS IPAR) tablet 60 mg 60 mg Oral DAILY ALPRAZolam (XANAX) tablet 0.25 mg 0.25 mg Per G Tube QHS heparin (porcine) injection 5,000 Units 5,000 Units SubCU TAneous Q12H lamoTRIgine (LaMICtal) tablet 50 mg 50 mg Per G Tube BID multivitami n (ONE A DAY) tablet 1 Tab 1 Tab Per G Tube DAILY pantoprazole (PROTONIX) granules for oral suspension 40 mg 40 mg Per G TubeACB valproic acid (as sodium salt) (DEPAKENE) 250 mg/5 mL (5 mL) oral solution 750mg 750 mg Per G Tube Q12H acetamino phen (TYLENOL) solution 650 mg 650 mg Per G Tube Q4H PRN acetylcysteine (MUCOMYST) 100 mg/mL (10 %) nebulizer solution 400 mg 4 mLInhalation Q12H budesonide (PULMICORT ) 500 mcg/2 ml nebulizer suspension 500 mcg [id number] albuterol-ipratropium (DUO-NEB) 2.5 MG-0.5 MG/3 ML 3 mL Nebulization Q6HWA RT piperacillin-tazo bactam (ZOSYN) 3.375 g in 0.9% sodium chloride (MBP/ADV) 100mL MBP 3.375 g In traVENous Q8H vancomycin (VANCOCIN) 1,000 mg in 0.9% sodium chloride 250 mL IVPB 1,0 00 mgIntraVENous [id number]/Plan:Hospital Problems Date Reviewed: 03/12/2019 Codes Class Noted POA Acute respiratory failure with hypoxia (HCC) ICD-10-CM: J9 6.01ICD-9-CM: 518.81 01/10/2019 Unknown Pneumonia ICD-10-CM: J18.9ICD-9-CM: 486 11/08/2018 UnknownAssessment:Acute Respiratory Failure with hypercapnia and hypoxiaPossible PneumoniaAcute COPDLeukocytosisGastric distentionDyspha jaydon S/P recent g/t conversion to jtubeSeizureHyperparathyroidGERD/ Large HHParkinsonismAnxiety disorderSevere intellectual disabilitiesPlan:O2/ BIPAP per pulmContinue IV vancomycin and zosyn per IDNebulizersIv steroids per pulmStart TF Continue officer captain lamictal, depakote, clorazepate (xanax) and sensiparFollow culturesF/u c t Sonia Porras 2018Time: 11:14 PM Name Value Range Interpretation Code Description Data Harriett rce(s) Supporting Document(s ) ID Date Data Source [id number] 03/12/2019 10:11:09 PM EST [facility] Name Value Range Interpretation Description Data Sup porting Code Source(s) Document(s ) Glucose 120 MG/DL 65-110 Above high normal [facility] [Mass/volume] Taoist in Blood by [facility] Automated test strip ID Date Data Source [id number] 03/12/2019 07:58:46 PM [facility] Bedside and Verbal shift change report carol pham to Susan RN (oncoming nurse) Israel Alamo RN (offgoing nurse). Report incl uded the following information SBAR, Kardex,Intake/Output, MAR, Recent Result s and Cardiac Rhythm NSR. Name Value Range Interpretation Code Description Data [facility] rce(s) Supporting Document(s ) ID Date Data Source [id number] 03/12/2019 01:01:26 PM [facility] PULMONARY/ CCM- Consult NotePatient: Ivelisse Carlin Sex: male DOA: 03/11/2019Date of : [birth year] Age: 68 y.o. LOS: LOS: 1 dayHPI: step down.Evelio Carlin is a 68 y.o. 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 Authorizing ProviderpredniSONE 5 mg/5 mL oral soultion Take 30 mg by mouth daily. Yes Provider,Historicalvalproic acid, as sodium salt, (DEPAKENE) 250 mg/5 mL (5 mL) soln oral [id number] mg by Per G Tube route every twelve (12) hours. Yes Provider, Historicalacetylcysteine (MUCO MYST) 100 mg/mL (10 %) nebulizer solution Take 4 mL byinhalation two (2) times a d ay. Yes Provider, Historicalomeprazole (PRILOSEC) 2 mg/mL susp 2 mg/mL oral christa pension (compounded) 40 mg byPer G Tube route daily. Yes Provider, Historicalacetami nophen (TYLENOL) 32MG/ML soln solution Take 20.3 mL by mouth every four(4) hours as needed for Pain or Fever.Patient taking differently: Take 650 mg by mouth every four (4) hours as neededfor Pain or Fever. Was one time dose for fever 01/24/19 Mili Velasco DOclorazepate (TRANXENE) 3.75 mg tablet 1 Tab by Per G Tube route nightly. MaxDaily Amount: 3.75 mg. 12/30/18 Yes Mili Hills DOcinacalcet (SENSI PAR) 30 mg tablet Take 2 Tabs by mouth daily.Patient taking differently: 30 mg daily. Via G tube 12/30/18 Yes Mili Hills DOlamoTRIgine (LAMICTAL) 25 mg tablet 2 Tabs by Per G Tube route two (2) times aday. 12/30/18 Yes Patricio Hills, DOalbuterol-ipratropium (DUO-NEB) 2.5 mg-0.5 mg/3 ml nebu 3 mL by Nebulization route every six (6) hours. Every 6 hours while awakePatient taking differently: 3 mL by Nebulization route every four (4) hours asneeded. Every 6 hours while awak e 12/30/18 Yes Mili Hills DObudesonide (PULMICORT) 0.5 mg/2 mL nbsp 2 mL by Neb ulization route two (2) timesa day. 12/30/18 Yes Mili Hills DONo Known Asher Patel Surgical History:Procedure Laterality Date HX GASTROSTOMY PEG- replaced 9History reviewed. No pertinent family history.Social HistorySocioeconomic Hist ory Marital status: SINGLE Spouse name: Not on file Number of children: Not on file Years of education: Not on file Highest education level: Not on fileTobacco Use Smoking status: Never Smoker Smokeless tobacco: Never UsedSubstance and Sexual Activity Alcohol use: No Drug use: NoReview of SystemsPertinent items are noted in t he History of Present Illness.Physical Exam:Current medications:Current Facilit y-Administered Medications: sodium chloride (NS) flush 5-10 mL, 5-10 mL, IntraVENous , PRN, Jessie Neumann MD methylPREDNISolone (PF) (SOLU-MEDROL) in jection 40 mg, 40 mg, IntraVENous,Q6H, Mili Hills DO, 40 mg at 03/12/19 0 553 0.9% sodium chloride infusion, 50 mL/hr, IntraVENous, CONTINUOUS, Eloisa Hills DO, Last Rate: 70 mL/hr at 03/11/192150, 70 mL/hr at 03/11/192150 cinaca lcet (SENSIPAR) tablet 60 mg, 60 mg, Oral, DAILY, Mili Hills DO,60 mg at 02/14 10/31 1308 ALPRAZolam (XANAX) tablet 0.25 mg, 0.25 mg, Per G Tube, QHS, Maryam Hills DO, Stopped at 03/11/19 2200 heparin (porcine) injection 5,000 Units, 5,000 U nits, SubCUTAneous, Q12H,Mili Hills DO, 5,000 Units at 03/11/19 2342 lamoTRIgi ne (LaMICtal) tablet 50 mg, 50 mg, Per G Tube, BID, Mili Hills DO, 50 mg at 03/12/19 0901 multivitamin (ONE A DAY) tablet 1 Tab, 1 Tab, Per G Tube, DAILY, Mili Hills DO, 1 Tab at 03/12/19 0901 pantoprazole (PROTONIX) granules for ora l suspension 40 mg, 40 mg, Per GTube, ACB, Mili Hills DO, 40 mg at 03/12/19 0 901 valproic acid (as sodium salt) (DEPAKENE) 250 mg/5 mL (5 mL) oral solut wvs396 mg, 750 mg, Per G Tube, Q12H, Mili Hills DO, 750 mg at 03/12/19 0901 a cetaminophen (TYLENOL) solution 650 mg, 650 mg, Per G Tube, Q4H PRN, Mili Hills DO acetylcysteine (MUCOMYST) 100 mg/mL (10 %) nebulizer solution 400 mg, 4 mL,Inhal ation, Q12H, Krystian Monae MD, 400 mg at 03/12/19 0810 budesonide (PULMICORT) 5 00 mcg/2 ml nebulizer suspension, 500 mcg,Nebulization, Q12H, Krystian Monae M D, 500 mcg at 03/12/19 0810 albuterol-ipratropium (DUO-NEB) 2.5 MG-0 .5 MG/3 ML, 3 mL, Nebulization, [id number] Nihal, MD, 3 mL at 03/12/19 0810 piperacillin-tazobactam (ZOSYN) 3.375 g in 0.9% sodium chloride (MBP/ADV) 100mL MBP , 3.375 g, IntraVENous, Q8H, Natasha Dudley MD, Last Rate: 200 mL/hr at105/12/18 0901 , 3.375 g at 03/12/19 0901 vancomycin (VANCOCIN) 1,000 mg in 0.9% sodium chlor wade 250 mL IVPB, 1,000 mg,IntraVENous, Q12H, Natasha Dudley MD, Last Rate: 125 mL/hr a t 03/12/19 0909,1,000 mg at 03/12/19 0909DataVisit VitalsBP 112/55 (BP 1 Loca tion: Right arm, BP Patient Position: At rest)Pulse 62Temp 97.5 F (36.4 C)Resp 18Ht 5' 2" (1.575 m)Wt 56 kg (123 lb 6.4 oz)SpO2 94%BMI 22.57 kg/m Intake and Out put:Date 03/11/19 07 - 03/12/1965819 0700 - 03/13/19 0659Shift 07- 1858 [id number] 24 Hour Total 2352-8725 8709-0124 24 Hour TotalINTAKEI.V.(mL/kg/ hr) 940(1.3) 1090(1.5) 2030(1.4) Volume (0.9% sodium chloride infusion) 037 184 2686 Volume (piperacillin-tazobactam (ZOSYN) 3.375 g in 0.9% sodium chloride(MBP/ADV) 100 mL MBP) 100 100 Volume (vancomycin (VANCOCIN) 1,000 mg in 0.9% sodium chlor wade 250 mL IVPB)250 250Shift Total(mL/kg) 940(15.4) 1090(17.8) 2030(33.2)OUTPUTShi ft Total(mL/kg)NET 940 1090 2030Weight (kg) 61.2 61.2 61.2 56 56 56Pulse OX:SpO2 Shilo dings from Last 6 Encounters:03/12/19 94%02/19/19 96%02/18/19 92%01/24/19 93%0 12/30/18 96%11/27/18 91%@LASTSAO2(6)@PHYSICAL EXAM:General: Lethargic,responding.He ad: Normocephalic, without obvious abnormality, atraumatic.Eyes: Conjunct ivae clear, anicteric sclerae. Pupils are equalNose: Nares normal. No drainage or sinus tenderness.Throat: Lips, mucosa, and tongue normal. No ThrushNeck: Supp le, symmetrical, no adenopathy, thyroid: non tender no carotid bruit and no JVD.Back : Symmetric, No CVA tenderness.Lungs: Scattered rhonchi,Chest wall: No tender ness or deformity. No Accessory muscle use.Heart: Regular rate and rhythm, n o murmur, rub or gallop.Abdomen: Soft, non-tender. Not distended. Bowel sounds normal. No massesExtremities: Extremities normal, atraumatic, No cyanosis. No deepthi ma. No clubbingSkin: Texture, turgor normal. No rashes or lesions. Not Jaund icedLymph nodes: Cervical, supraclavicular normal.Psych: Good insight. Not depres sed. Not anxious or agitated.Neurologic: EOMs intact. No facial asymmetry. No aph greg or slurred speech.Most recent labs:Recent Labs WBC 18.6*H GB 13.4*HCT 41.2*PLT 263Recent Labs 03/12/1906NA -- 140 -- -- 132*K -- 4.7 -- -- 3.9CL -- 100 -- -- 9 2*CO2 37* 37* 36* < > 40*GLU -- 98 -- -- 94BUN -- 19* -- -- 11CREA -- 0.52* -- -- 0.47*CA -- 9.9 -- -- 9.6MG -- 2.1 -- -- --PHOS -- 3. 8 -- -- --ALB -- 2.5* -- -- 2.7*TBILI -- -- -- -- 0.3SGOT - - -- -- -- 7*ALT -- -- -- -- 11* < > = values in this interval not di splayed.Recent Labs 03/11/1916PH 7.41 7.40 7. 46*PCO2 55* 55* 54*PO2 81* 106 86HCO3 35* 34* 38*FIO2 40.0 50.0 100.0ABG:Recent Labs 03/11/1916PH 7.41 7.40 7.46*PCO2 55* 55* 54*PO2 81* 106 86 HCO3 35* 34* 38*FIO2 40.0 50.0 100.0Cultures:No results found for: CATHY Lab ResultsComponent Value Date/Time Culture result: NO GROWTH 1 DAY 03/11/2019 04:14 AM Culture result: NO GROWTH 1 DAY 03/11/2019 04:14 AM Culture result: NO G ROWANNABELLA 5 DAYS 02/08/2019 05:19 PM Culture result: NO GROWTH 5 DAYS 02/08/2019 05:0 0 PM Culture result: NO GROWTH 5 DAYS 01/21/2019 11:30 PM Culture result: NO G ROWTH 2 DAYS 01/21/2019 11:15 PM Culture result: NO GROWTH 5 DAYS 01/21/2019 11:0 0 PM Culture result: NO GROWTH 1 DAY 01/10/2019 08:58 AM Culture result: NO G ROWTH 5 DAYS 01/10/2019 07:55 AM Culture result: NO GROWTH 5 DAYS 01/10/2019 07:4 0 AM Culture result: NO GROWTH 5 DAYS 12/29/2018 11:23 AM Culture result: NO G ROWTH 5 DAYS 12/29/2018 11:00 AM Culture result: 10,000 to 50,000 COLONIES/mL KLE BSIELLA PNEUMONIAE (A)12/29/2018 11:00 AM Culture result: 50,000-100,000 COLONIES/ mL PSEUDOMONAS AERUGINOSA (A)12/29/2018 11:00 AM Culture result: (A) 12/29/2018 11:00 AM 10,000 to 50,000 COLONIES/mL STAPHYLOCOCCUS EPIDERMIDIS Culture resul t: NO GROWTH 2 DAYS 12/24/2018 09:45 AM Culture result: NO GROWTH 5 DAYS 019 12:00 PM Culture result: NO GROWTH 5 DAYS 12/23/2018 11:40 AM Culture result: NO G ROWTH 4 DAYS 12/19/2018 12:30 PM Culture result: NO GROWTH 4 DAYS 12/19/2018 12:3 0 PM Culture result: NO GROWTH 1 DAY 12/12/2018 08:04 PM Culture result: NO G ROWTH 5 DAYS 12/12/2018 07:40 PM Culture result: NO GROWTH 5 DAYS 12/12/2018 07:4 0 PM Culture result: NO GROWTH 2 DAYS 11/20/2018 09:00 AM Culture result: NO G ROWTH 5 DAYS 11/07/2018 08:10 PM Culture result: NO GROWTH 5 DAYS 11/07/2018 08:0 0 PMImages:Cta Chest W Or W Wo ContResult Date: 11/08/2018Examination: CTA Chest ? PE angiography History: Hypoxia; rule out pneumoniaversus pulmonary embolism Prior s: None Technique: Low-dose, multiplanar,helical CTA chest was perfor med with bolus IV injection from lung apices tobases. 3D-reformatted images were obt ained and reviewed on a dedicated viewingworkstation and directly supervis ed. Contrast: A total of 71 mL of Isovue-370was administered intravenously for this procedure. Findings: No evidence ofpulmonary embolism is seen. There is d ecreased size of the right hemithorax fromchronic scarring and retraction with mediastinal shift left to right.Additional area of consolidation is seen in the rig ht lower lobe and suggestssuperimposed pneumonia with subsegmental atelectasis. Subsegmental atelectasisis also noted in the left lung base, with pleural parench ymal scarring. Lowlung volumes are seen. No pneumothorax seen. Aorta normal in calib er withoutaneurysm or dissection. Mediastinum no adenopathy. Mediastinal shift is see n inthe left and right as a result of chronic changes in the right hemithorax. Heart shows no chamber enlargement or pericardial effusion. No acute fractures seen in the bony thorax, sternum, manubrium and rib cage. Multiple compressiondefor mities are seen in the mid and lower thoracic spine, with superimposedspondyloarthropa thy. Cannot exclude acute fracture.Impression: No evidence of pul monary embolism Right lower lobe pneumoniasuggested. Incidental scarring and retraction in the right hemithorax fromremote/chronic inflammatory disease and/or trauma. Bibasilar subsegmentalatelectasis. Report Electron ically Signed By: Pawel Zafar M.D. -11/08/2018 12:40 AMXr Chest PortResult D ate: 11/07/2018XR CHEST PORT CLINICAL INDICATION PROVIDED:. "sob." COMPARISON: . 09/26/2015.FINDINGS:. The pericardial/cardiac silhouette is enlarg ed in the transversedimension. There is no pulmonary vascular congestion or interst itial edema.Linear density in the left lung base and faint densities in the right mi d tolower lung likely represent atelectasis. There is no lobar consolidation oreffusi on. There is no pneumothorax.IMPRESSION:. Bilateral lower lung atelectasis. No donna dence of consolidation oreffusion.Assessment/PlanActive Problem s: Pneumonia (11/08/2018) Acute respiratory failure with hypoxia (HCC) (01/10/2019) A cute resp failure combined pneumonia recurrent acute copd exacerbationPLAN,Mo nitoring,bipap prn for resp distress,abx as per id.Steroid nebbipap prn and at night .NebGi /dvt prophylaxis.D/w nursing staff.Stella Hamilton MDNovember 2018 The billing code submitted in association with this evaluation also includes theti me to review patient's prior records, communicate with the physician team,obta in corroborating data, and discuss the risk and benefits of the proposedmanagement p frantz with the patient and their family >30 minutes. Name Value Range Interpretation Code Description Data Harriett rce(s) Supporting Document(s ) ID Date Data Source [id number] 03/12/2019 12:43:20 PM EST [facility] Name Value Range Interpretation Description Data Sup porting Code Source(s) Document(s ) Glucose 105 MG/DL 65-110 [facility] - [facility] [Mass/volume] [facility] in Blood by Hospital Automated test strip ID Date Data Source [id number] 03/12/2019 11:55:34 AM EST [facility] ID Progress Note03/12/2019Subjective:Betty ient with history of mental retardation,recurrent aspiration pneumon ia wasTransferred from the long-term for fever of 101.2,increase chestcongestion, wheezing and respiratory disrtess.He was febrile to 100.5 on arrivalto the ER wit h elevated wbc of 18,600.Patient is unable to provide history.Blood cx remain negative Pt on BIPAPNon verbal unable to provide historyObjective:Review of Systems: unab le to provideVitals:Patient Vitals for the past 24 hrs: BP Temp Pulse Resp SpO2 [place] 0939805/12/18 0752 112/55 97.5 F (36.4 C) 62 18 94 % -03/12/19 0715 - - - - - 56 kg ( 123 lb 6.4 oz)03/12/19 0459 107/59 97.4 F (36.3 C) 65 18 94 % -03/12/19 0051 112/ 63 97.3 F (36.3 C) 67 20 93 % -03/11/192029 - - - - 96 % -03/11/192022 - - - - 98 % -03/11/191953 107/60 97.4 F (36.3 C) 68 18 94 % -03/11/191729 - - - - 95 % - 03/11/19 1603 95/69 97.3 F (36.3 C) 74 20 96 % -03/11/19 1326 143/75 97.8 F (36.6 C) 74 - 99 % -03/11/19 1145 - - - - 96 % -Tmax: Temp (24hrs), Av.5 F (36.4 C), Min:97.3 F (36.3 C), Max:97.8 F(36.6 C)Physical Exam:General: Lethargic,non verbal on BiPAP cooperative, no distress, appears statedage.Eyes: Conjunctivae/co rneas clear. PERRLNeck: Supple, symmetrical, trachea midline, no adenopathyLungs: B ilateral breath sounds with basal crackles..Heart: Regular rate and rhyth m, S1, S2 normal, no murmurAbdomen: Soft, non-tender. Bowel sounds normal. No mass es, Noorganomegaly.peg+Back: No CVA tenderness.Extremities: Contracted chron ic lymphedemaPulses: 2+ and symmetric all extremities.Skin: Skin color, texture, t urgor normal. No rashes or lesionsLymph nodes: Cervical, supraclavicular, and ax illary nodes normal.Neurologic: Non verbal functional quadriplegia Current Facility -Administered MedicationsMedication Dose Route Frequency sodium chloride (NS) fl ush 5-10 mL 5-10 mL IntraVENous PRN methylPREDNISolone (PF) (SOLU-MEDROL) in jection 40 mg 40 mg IntraVENous Q6H 0.9% sodium chloride infusion 70 mL/hr Intra VENous CONTINUOUS cinacalcet (SENSIPAR) tablet 60 mg 60 mg Oral DAILY ALPRAZol am (XANAX) tablet 0.25 mg 0.25 mg Per G Tube QHS heparin (porcine) injection 5,000 U nits 5,000 Units SubCUTAneous Q12H lamoTRIgine (LaMICtal) tablet 50 mg 50 mg Per G Tube BID multivitamin (ONE A DAY) tablet 1 Tab 1 Tab Per G Tube DAILY pa ntoprazole (PROTONIX) granules for oral suspension 40 mg 40 mg Per G TubeACB v alproic acid (as sodium salt) (DEPAKENE) 250 mg/5 mL (5 mL) oral solution 750mg 750 mg Per G Tube Q12H acetaminophen (TYLENOL) solution 650 mg 650 mg Per G Tube Q4H P RN acetylcysteine (MUCOMYST) 100 mg/mL (10 %) nebulizer solution 400 mg 4 mLInhala tion Q12H budesonide (PULMICORT) 500 mcg/2 ml nebulizer suspension 500 mcg Nebuliz [id number] albuterol-ipratropium (DUO-NEB) 2.5 MG-0.5 MG/3 ML 3 mL Nebulization Q6 HWA RT piperacillin-tazobactam (ZOSYN) 3.375 g in 0.9% sodium chloride (MBP/ADV) 100m L MBP 3.375 g IntraVENous Q8H vancomycin (VANCOCIN) 1,000 mg in 0.9% sodium chlor wade 250 mL IVPB 1,000 mgIntraVENous B74PKwet:Recent Labs 03/11WBC -- 18.6*HGB -- 13.4*PLT -- 263BUN 19* 11CREA 0.52* 0.47*SGOT -- 7 *AP -- 66TBILI -- 0.3Cultures:No results found for: SDESLab ResultsComponent Valu e Date/Time Culture result: NO GROWTH 1 DAY 03/11/2019 04:14 AM Culture result: NO G ROWTH 1 DAY 03/11/2019 04:14 AM Culture result: NO GROWTH 5 DAYS 02/08/2019 05:1 9 PMRadiology:No results found.Assessment: Suspect recurrent aspiration pneumonia. Acute COPD exacerbation Acute respiratory failure. Dysphagia R/o sepsis. Plan:1. Continue IV Vancomycin and IV zosyn2. Follow cultureJosé Luis Gonzalez 911:08 AM Name Value Range Interpretation Code Description Data Harriett rce(s) Supporting Document(s ) ID Date Data Source [id number] 03/12/2019 11:15:25 AM EST [facility] Name Value Range Interpretation Description Data Sup porting Code Source(s) Document(s ) pH of Arterial 7.41 7.35-7.4 [facility] - Good blood [address] [place] [address] Carbon dioxide 55 mmHg 32-48 Above high normal [facility] - [facility] [Partial Tao[facility] pressure] in Hospital Arterial blood Oxygen 81 mmHg 83-108 Below low normal [facility] - [facility] [Partial [facility] pressure] in Hospital Arterial blood Carbon 37 19-24 Above high normal [facility] - Good dioxide, total mmol/L [facility] [Moles/volume] Hospital in Arterial blood Bicarbonate 35 21-28 Above high normal [facility] - Go od [Moles/volume] mmol/L [facility] in Arterial Hospital blood Oxygen 98 % 94-98 [facility] - [facility] saturation in Taoist Blood [facility] Base excess in 8.4 0-3 Above high normal [facility] - Good Arterial blood mmol/L [facility] by calculation Hospital Body site [facility] Hospital Oxygen gas [facility] - [facility] flow Oxygen [facility] delivery Hospital system Oxygen/Inspire 40.0 % [facility] - [facility] d gas [facility] Respiratory Hospital system --on ventilator Ventilation [facility] mode [facility] [Identifier] Hospital Ventilator PEEP 7 [facility] Respiratory [facility] system Hospital Pressure 14 [facility] - [facility] support [facility] setting Hospital Ventilator Respiratory 18 [facility] - [facility] rate [facility] Hospital Service 09634 [facility] - Good comment [facility] ID Date Data Source [id number] 03/12/2019 07:50:17 AM EST [facility] Bedside and Verbal shift change report g ellynen to NEHEMIAS ALAMO RN (oncomingnurse) by Ana Ramesh (offgoing nurse). Report inc luded the followinginformation SBAR, Kardex, Intake/Output, MAR and Recent Results. Name Value Range Interpretation Code Description Data Harriett rce(s) Supporting Document(s ) ID Date Data Source [id number] 03/12/2019 08:54:57 AM EST [facility] Name Value Range Interpretation Description Data Sup porting Code Source(s) Document(s ) Valproate 78 ug/ml 50.0-100 [facility] - [facility] [Mass/volume] .0 [facility] in Serum or Hospital Plasma ID Date Data Source [id number] 03/12/2019 08:31:59 AM EST [facility] Name Value Range Interpretation Description Data Sup porting Code Source(s) Document(s ) Sodium 140 136-145 [facility] - [facility] [Moles/volume] mmol/L [facility] in Serum or Hospital Plasma Potassium 4.7 3.5-5.1 [facility] - [facility] [Moles/volume] mmol/L [facility] in Serum or Hospital Plasma Chloride 100 98-107 [facility] - [facility] [Moles/volume] mmol/L [facility] in Serum or Hospital Plasma Carbon 37 21-32 Above high normal [facility] - Good dioxide, total mmol/L [facility] [Moles/volume] Hospital in Serum or Plasma Anion gap in 7 mmol/L 10-20 Below low normal [facility] - Go od Serum or [facility] Plasma Hospital Glucose 98 mg/dL 74-106 [facility] - [facility] [Mass/volume] [facility] in Serum or Hospital Plasma Urea nitrogen 19 mg/dL 7-18 Above high normal [facility] - Good [Mass/volume] [facility] in Serum or Hospital Plasma Creatinine 0.52 0.70-1.3 Below low normal [facility] - [facility] [Mass/volume] mg/dL 0 [facility] in Serum or Hospital Plasma Glomerular >60 [facility] - Good filtration Tao[facility] rate/1.73 sq M Hospital predicted among blacks [Volume Rate/Area] in Serum or Plasma by Creatinine-bas ed formula (MDRD) Glomerular >60 [facility] - Good filtration Tao[facility] rate/1.73 sq M Hospital predicted among non-blacks [Volume Rate/Area] in Serum or Plasma by Creatinine-bas ed formula (MDRD) Calcium 9.9 8.5-10.1 [facility] - Good [Mass/volume] mg/dL [facility] in Serum or Hospital Plasma Phosphate 3.8 2.5-4.9 [facility] - [facility] [Mass/volume] mg/dL [facility] in Serum or Hospital Plasma Albumin 2.5 g/dL 3.5-4.7 Below low normal [facility] [Mass/volume] [facility] in Serum or Hospital Plasma by Bromocresol purple (BCP) dye binding method ID Date Data Source [id number] 03/12/2019 08:31:59 AM EST [facility] Name Value Range Interpretation Description Data Sup porting Code Source(s) Document(s ) Cholesterol 156 <200 [facility] [Mass/volume] mg/dL [facility] in Serum or Hospital Plasma Triglyceride 97 mg/dL <150 [facility] - [facility] [Mass/volume] [facility] in Serum or Hospital Plasma Cholesterol in 71 mg/dL >40 [facility] - [facility] HDL Taoist [Mass/volume] Hospital in Serum or Plasma Cholesterol in 65.6 <100 [facility] - [facility] LDL MG/DL Tao[facility] [Mass/volume] Hospital in Serum or Plasma by calculation Cholesterol in 19.[address] [facility] VLDL MG/DL Tao[facility] [Mass/volume] Hospital in Serum or Plasma by calculation Cholesterol in 2.2 0.0-4.5 [facility] - [facility] HDL/Cholesterol Taoist .total [Mass Hospital Ratio] in Serum or Plasma ID Date Data Source [id number] 03/12/2019 08:31:59 AM [facility] Name Value Range Interpretation Description Data Sup porting Code Source(s) Document(s ) Magnesium 2.1 mg/dL 1.6-2.6 [facility] [Mass/volume] [facility] in Serum or Hospital Plasma ID Date Data Source [id number] 03/11/2019 08:59:12 PM [facility] Problem: Falls - Risk ofGoal: *Absence o f FallsDescriptionDocument Samra Fall Risk and appropriate interventions in the jhon wsheet.Outcome: Progressing Towards GoalNote: Fall Risk Interventions:Mentation Interv entions: Door open when patient unattended, Adequate sleep,hydration, pain control, Bed/chair exit alarmMedication Interventions: Bed/chair exit alarmElimination Interven tions: Call light in reach, Bed/chair exit alarm, Toiletingschedule/hourly roundsPr oblem: Pressure Injury - Risk ofGoal: *Prevention of pressure injuryDescriptio nDocument Butch Scale and appropriate interventions in the flowsheet.Outcome: Progressing Towards GoalNote: Pressure Injury Interventions:Sensory Interventions: Ass ess changes in LOC, Avoid rigorous massage over bonyprominences, Check visual cues for pain, Float heels, Keep linens dry andwrinkle-free, Minimize linen layers, Pressure redistribution bed/mattress (bedtype), Pad between skin to skin, Tur n and reposition approx. every two hours(pillows and wedges if needed)Moist ure Interventions: Absorbent underpads, Apply protective barrier, creamsand emollients , Check for incontinence Q2 hours and as needed, Moisture barrier,Minimize layers , Maintain skin hydration (lotion/cream)Activity Interventions: Pr essure redistribution bed/mattress(bed type)Mobility Interventions: Float heels , HOB 30 degrees or less, Pressureredistribution bed/mattress (bed type), Turn and reposition approx. every twohours(pillow and wedges)Nutrition Int erventions: Discuss nutritional consult with providerFriction and Shear Interventions : Apply protective barrier, creams andemollients, Foam dressings/transparen t film/skin sealants, HOB 30 degrees orless, Minimize layersProblem: Pneumonia: Day 1 Goal: Activity/SafetyOutcome: Progressing Towards GoalGoal: Consults, if orderedOu tcome: Progressing Towards GoalGoal: Diagnostic Test/ProceduresOutcome: Progr essing Towards GoalGoal: MedicationsOutcome: Progressing Towards GoalGoal: Treatments /Interventions/ProceduresOutcome: Progressing Towards GoalGoal: *Oxygen saturation wit hin defined limitsOutcome: Progressing Towards GoalGoal: *Hemodynamically stabl eOutcome: Progressing Towards Goal Name Value Range Interpretation Code Description Data [facility](s) Supporting Document(s ) ID Date Data Source [id number] 03/11/2019 07:50:48 PM [facility] Bedside and Verbal shift change report carol pham to Nelson Ramesh RN (oncoming nurse)by SHIRA KNOX RN (offgoing nurse). Rep ort included the followinginformation SBAR, Kardex, MAR and Recent Results. Name Value Range Interpretation Code Description Data [facility] Supporting Document(s ) ID Date Data Source [id number] 03/11/2019 05:35:35 PM [facility] BIPAP SKIN INTEGRITYPt placed on bipap a round 2pm. Switched to the supervisor graphite mask 5pm. sandhya well. Skinbarrier applied to the nos e bridge. Will ask the oncoming RT to rotate the maskto prevent any abrasion Name Value Range Interpretation Code Description Data [facility](s) Supporting Document(s ) ID Date Data Source [id number] 03/11/2019 04:39:05 PM EST [facility] Name Value Range Interpretation Description Data Sup porting Code Source(s) Document(s ) pH of Arterial 7.40 7.35-7.4 [facility] - Good blood 5 [facility] Carbon dioxide 55 mmHg 32-48 Above high normal [facility] - [facility] [Partial Taoist pressure] in Hospital Arterial blood Oxygen 106 mmHg 83-108 [facility] - Good [Partial Tao[facility] pressure] in Hospital Arterial blood Carbon 36 19-24 Above high normal [facility] - Good dioxide, total mmol/L Tao[facility] [Moles/volume] Hospital in Arterial blood Bicarbonate 34 21-28 Above high normal [facility] - Go od [Moles/volume] mmol/L [facility] in Arterial Hospital blood Oxygen 99 % 94-98 Above high normal [facility] - Good saturation in [facility] Base excess in 7.5 0-3 Above high normal [facility] - Good Arterial blood mmol/L Taoist by calculation Hospital Body site [facility] - Good [facility] Arterial [facility] - Good patency Wrist Taoist artery --pre Hospital arterial puncture Oxygen gas [facility] - Good flow Oxygen Taoist delivery [facility] system Oxygen/Inspire 50.0 % [facility] - Good d gas [facility] Respiratory Hospital system --on ventilator Ventilation [facility] - Good mode Taoist [Identifier] [facility] Ventilator PEEP 5 [facility] - Good Respiratory [facility] system Hospital Pressure 16 [facility] - Good support [facility] Ventilator Respiratory 14 [facility] - Good rate [facility] Service 38391 [facility] - Good comment [facility] ID Date Data Source [id number] 03/11/2019 04:25:58 PM EST [facility] CTscan on-hold until pt's respiratory st atus improves. Name Value Range Interpretation Code Description Data Harriett rce(s) Supporting Document(s ) ID Date Data Source [id number] 03/11/2019 04:23:54 PM EST [facility] Infectious Disease ConsultToday's Date: 03/11/2019Admit Date: 03/11/2019Subjective:Date of Consultatio n: March 11, 2019Referring Physician: Justice Hills is a 68 y.o. male who is being seen for pneumonia.Patient with historyof mental retardation,recurrent a spiration pneumonia was Transferred [facility] for fever of 101.2,incre ase chest congestion,wheezing andrespiratory disrtess.He was febrile to 100.5 on arri seema to the ER with elevatedwbc of 18,600.Patient is unable to provide hist ory.History obtained from chartreview.Patient Active Problem ListDiagnosis Code Parae sophageal hiatal hernia K44.9 COPD (chronic obstructive pulmonary disease) ([facility]) J44 .9 Acute respiratory distress R06.03 Pneumonia J18.9 COPD exacerbation ([facility]) J44.1 Sepsis due to undetermined organism ([facility]) A41.9 Generalized anxiety disorde r F41.1 Acute respiratory failure with hypoxia ([facility]) J96.01 Pneumonia involvin g right lung J18.9 Hyponatremia E87.1 SOB (shortness of breath) R06.02 Pressure i njury of right heel, stage [address]) L89.612 Leg wound, right, initial encounter S81. 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)History reviewed. No pertinent family history.Social Histo ryTobacco Use Smoking status: Never Smoker Smokeless tobacco: Never UsedSubstance U se Topics Alcohol use: NoPast Surgical History:Procedure Laterality Date HX GA STROSTOMY PEG- replaced 11/2018Prior to Admission medicationsMedication Sig Star t Date End Date Taking? Authorizing Providercefepime 2 gram 2 g IVPB 2 g by IntraVENous route every eight (8) hours.02/12/19 Christos Lopez MDhepa rin sodium,porcine (HEPARIN, PORCINE,) 5,000 unit/mL injection 1 mL bySubCUTAneous ro manzanita every twelve (12) hours every twelve (12) hours. 02/12/19Christos Lopez MDpantop razole (PROTONIX) 40 mg granules for oral suspension 40 mg by Per NG darcie Gabriele ly (before breakfast). 02/13/19 Christos Lopez MDpredniSONE (DELTASONE) 10 mg tab let Take 20 mg by mouth daily. 02/12/19Christos Lopez, NasredniSONE (D ELTASONE) 10 mg tablet Take 10 mg by mouth daily (with breakfast).02/12/19 Christos Mcmahon, MDmultivitamin (MULTI-DELYN, WELLESSE) liqd 5 mL by Per G Tube route daily.Provider, Historicalvalproic acid, as sodium salt, (DEPAKENE) 250 mg/5 mL (5 m L) soln oral [id number] mg by Per G Tube route every twelve (12) hours. Provid er, Historicalacetylcysteine (MUCOMYST) 100 mg/mL (10 %) nebulizer solution Take 4 m L byinhalation two (2) times a day. Provider, Historicalzinc oxide 10 % topi inez cream Apply to affected area daily. Ribbon around GTsite Provider, Histor icalomeprazole (PRILOSEC) 2 mg/mL susp 2 mg/mL oral suspension (compounded) 40 mg byPer G Tube route daily. Provider, Historicalsillani sulfADIAZINE (SILVADENE ) 1 % topical cream Apply to affected area two(2) times a day. 1 inch ribbon- right edge Provider, Historicalacetaminophen (TYLENOL) 32MG/ML soln solution Take 20. 3 mL by mouth every four(4) hours as needed for Pain or Fever. 01/24/19 Maryam Hills DOinfluenza vaccine 2019-20, 65 yrs+,,PF, (FLUZONE HIGH-DOSE) syrg injec tion 0.5mL by IntraMUSCular route PRIOR TO DISCHARGE. 01/24/19 Mili Hills D Ocholestyramine-aspartame (QUESTRAN LIGHT) 4 gram packet Take 1 Packet by mouthtwo (2 ) times a day.Patient taking differently: 4 g two (2) times a day. Via G tube. Mili Barrera DOclorazepate (TRANXENE) 3.75 mg tablet 1 Tab by Per G Tube route nightly. MaxDaily Amount: 3.75 mg. 12/30/18 Mili Hills DOcinacalcet (SENSIPAR) 30 mg tablet Take 2 Tabs by mouth daily.Patient taking differently: 60 mg daily. Via G tube 12/30/18 Mili HillsDOlamoTRIgine (LAMICTAL) 25 mg t ablet 2 Tabs by Per G Tube route two (2) times aday. 12/30/18 Mili Hills D Oalbuterol-ipratropium (DUO-NEB) 2.5 mg-0.5 mg/3 ml nebu 3 mL by Nebulizationroute e very six (6) hours. Every 6 hours while awake 12/30/18 Mili HillsDObudesonide ( PULMICORT) 0.5 mg/2 mL nbsp 2 mL by Nebulization route two (2) timesa day. Mili Hills DObacitracin 500 unit/gram ointment Apply 1 Packet to aff ected area two (2) timesa day. Indications: minor skin infection due to bacteria, fa cial scabs 12/30/18Mili Hills DONo Known AllergiesReview of SystemsPatient is maria isabel ble to provideObjective:Visit VitalsBP 143/75 (BP 1 Location: Right arm, BP Patient Po sition: At rest;Head of bedelevated (Comment degrees))Pulse 74Temp 97.8 F (36.6 C)R david 20Ht 5' 2" (1.575 m)Wt 61.2 kg (135 lb)SpO2 99%BMI 24.69 kg/m Temp (24hrs), Av.8 F (37.1 C), Min:97.8 F (36.6 C), Max:100.5 F (38.1 C)Lines: Peripheral IV:Physical Exam:General: Lethargic,non verbal on BiPAP cooperative, no distress , appears statedage.Eyes: Conjunctivae/corneas clear. PERRLNeck: S upple, symmetrical, trachea midline, no adenopathyLungs: Bilateral breath soun ds with basal crackles..Heart: Regular rate and rhythm, S1, S2 normal, no murmurAbdo men: Soft, non-tender. Bowel sounds normal. No masses, Noorganomegaly.peg+Back: N o CVA tenderness.Extremities: Contracted chronic lymphedemaPulses: 2+ and symmetr ic all extremities.Skin: Skin color, texture, turgor normal. No rashes or lesionsLymph nodes: Cervical, supraclavicular, and axillary nodes normal.Neurologic: Non ve rbal functional quadriplegiaData Review:Labs:Recent Results (from the [facility] t 24 hour(s))EKG, 12 LEAD, INITIAL Collection Time: 03/11/19 4:09 AMResult Value Ref Range Ventricular Rate 104 BPM Atrial Rate 104 BPM P-R Interval 134 ms QRS Duration 85 ms Q-T Interval 299 ms QTC Calculation (Bezet) 393 ms Calculated P [place] 63 degr ees Calculated R [place] 17 degrees Calculated T [place] 6 degrees Diagnosis Sinus tachycard iaBaseline wander in lead(s) [id number], BLOOD Collection Time: 03/11/19 4:14 AMResult Value Ref Range Special Requests: NO SPECIAL REQUESTS Culture result: NO GROWTH AFTER 3 HOURSCULTURE, BLOOD Collection Time: 03/11/19 4:14 AMResult Value Ref Range Special Requests: NO SPECIAL REQUESTS Culture result: NO GROWTH AFTER 3 HOURSLACTIC AC ID Collection Time: 03/11/19 4:14 AMResult Value Ref Range Lactic acid 1.6 0.4 - 2. 0 MMOL/LCBC WITH AUTOMATED DIFF Collection Time: 03/11/19 4:14 AMResult Value Ref Range WBC 18.6 (H) 4.8 - 10.6 K/uL RBC 4.19 (L) 4.70 - 6.00 M/uL HGB 13.4 (L) 14.0 - 18.0 g/dL HCT 41.2 (L) 42.0 - 52.0 % MCV 98.3 (H) 81.0 - 94.0 FL MCH 32.0 27.0 - 35.0 PG MCHC 32.5 30.7 - 37.3 g/dL RDW 15.9 (H) 11.5 - 14.0 % PLATELET 263 130 - 400 K/uL MPV 9.2 9.2 - 11.8 FL NEUTROPHILS 81 (H) 48.0 - 72.0 % LYMPHOCYTES 9 (L) 18.0 - 40.0 % MONOCYTES 10 2.0 - 12.0 % EOSINOPHILS 0 0.0 - 7.0 % BASOPHILS 0 0. 0 - 3.0 % ABS. NEUTROPHILS 14.9 (H) 1.5 - 6.6 K/UL ABS. LYMPHOCYTES 1.7 1.5 - 3.5 K/UL ABS. MONOCYTES 1.8 (H) 0.0 - 1.0 K/UL ABS. EOSINOPHILS 0.0 0.0 - 0.7 K/UL ABS. BASO PHILS 0.0 0.0 - 0.1 K/UL DF AUTOMATED IMMATURE GRANULOCYTES 1 0.0 - 2.0 %METAB OLIC PANEL, COMPREHENSIVE Collection Time: 03/11/19 4:14 AMResult Value Ref Range Sodium 132 (L) 136 - 145 mmol/L Potassium 3.9 3.5 - 5.1 mmol/L Chloride 92 (L) 98 - 10 7 mmol/L CO2 40 (H) 21 - 32 mmol/L Anion gap 4 (L) 10 - 20 mmol/L Glucose 94 74 - 106 mg/dL BUN 11 7 - 18 mg/dL Creatinine 0.47 (L) 0.70 - 1.30 mg/dL GFR est AA >60 >60 ml/min/1.73m2 GFR est non-AA >60 >60 ml/min/1.73m2 Calcium 9.6 8.5 - 10.1 mg/ dL Bilirubin, total 0.3 0.2 - 1.0 mg/dL ALT (SGPT) 11 (L) 13 - 61 U/L AST (SGOT) 7 ( L) 15 - 37 U/L Alk. phosphatase 66 45 - 117 U/L Protein, total 6.9 6.4 - 8.2 g/dL Al bumin 2.7 (L) 3.5 - 4.7 g/dL Globulin 4.2 1.7 - 4.7 g/dL A-G Ratio 0.6 (L) 0.7 - 2.8UR INALYSIS W/ RFLX MICROSCOPIC Collection Time: 03/11/19 5:10 AMResult Value Ref Range Color YELLOW YEL Appearance CLOUDY (A) CLEAR Specific gravity 1.017 1.003 - 1.030 pH (UA) 8.5 (H) 4.6 - 8.0 Protein TRACE (A) NEG mg/dL Glucose NEGATIVE NEG mg/dL Ketone NEGATIVE NEG mg/dL Bilirubin NEGATIVE NEG Blood NEGATIVE NEG Urobilinogen 1.0 0.2 - 1.0 EU/dL Nitrites NEGATIVE NEG Leukocyte Esterase NEGATIVE NEG WBC 0-3 0 - 5 /hp f RBC 0-3 0 - 2 /hpf Epithelial cells 0- 3 0 - 10 /hpf Bacteria NONE NONE /hpf Casts NO NE NONE /lpf Crystals, urine NONE NONE /LPFBLOOD GAS, ARTERIAL Collection Time: 03/11/19 8:08 AMResult Value Ref Range pH 7.46 (H) 7.35 - 7.45 PCO2 54 (H) 32 - 48 mmHg PO2 86 83 - 108 mmHg CO2, TOTAL 40 (H) 19 - 24 mmol/L BICARBONATE 38 (H) 21 - 2 8 mmol/L O2 SAT 98 94 - 98 % BASE EXCESS 12.3 (H) 0 - 3 mmol/L SITE RIGHT BRACHIAL DEV ICE NONREBREATHER MASK O2 FLOW 12 L/min FIO2 100.0 % Performed by [id number] ACID Co llection Time: 03/11/19 9:30 AMResult Value Ref Range Lactic acid 1.7 0.4 - 2.0 MMOL /LMicrobiology:Cultures:Lab ResultsComponent Value Date/Time Culture result: NO GROWT H AFTER 3 HOURS 03/11/2019 04:14 AM Culture result: NO GROWTH AFTER 3 HOURS 03/11/20 19 04:14 AM Culture result: NO GROWTH 5 DAYS 02/08/2019 05:19 PMImaging:Xr Chest Sngl VResult Date: 02/12/2019CHEST one view HISTORY: Followup lung pathology. Compar garth is made to previousstudies. Accounting for differences in technique there has b een no significantchange of right basal infiltrate/effusion. There is a poor ins piratory effortand patient rotation towards the right. No other interval change is n oted.IMPRESSION: No significant change.Xr Chest Sngl VResult Date: 02/09/2019AP po rtable film of the chest clinical indication pneumonia Study is compared toprevious e xamination of February 08, 2019. Again noted is cardiac enlargement curtis limited insp iration. There has been partial clearing of right mid lungdensities. Again noted is an old fracture of the left clavicleIMPRESSION: Partial clearing rig ht lung densities otherwise little changeXr Chest Sngl VResult Date: 12/25/2018Portab le chest x-ray. PRIOR EXAM: X-ray 12/18/2018 HISTORY: Pneumonia FINDINGS:The heart is normal in size. The mediastinum and pulmonary vessels areunremarkable. There is a small right pleural effusion.. A tube projected overthe left upper quadrant of the abdomen..IMPRESSION: Small right pleural effusion.Ct Chest Wo ContResult Date: CT CHEST WO CONT Clinical data: evaluation of pneumonia rt lung. Priors: 12/18/2018 Technique: CT scan of the chest was performed from the thoracic inletto belo w the diaphragm without administration of intravenous contrast. Theacquisition da ta was reviewed in the axial, sagittal and coronal plane.Utilizing silver holloware assembler alg orithm the examination was performed to optimizeimaging quality by utilizing the lowest possible radiation dose. Findings: Thereis no evidence of pathological lymp hadenopathy within the mediastinum, bilateralhilar and bilateral axillary lo cation. There is a 1.8 cm nodule along the rightwall of the trachea at the level of the thoracic inlet (best seen on image 13ofseries 2) not seen on the prior stud y. This may be due to a mucous plug. Noadditional endotracheal or endobronchi al lesion is noted.Normal heart size.Coronary artery calcifications noted. Atheroscle rotic thoracic aorta withoutaneurysmal dilatation. Evaluation lung windows demo nstrates patchy right lowerlobe lung infiltrate. There is associated small ri ght pleural effusion similarto prior. There is also small left pleural effusion with underlying passiveatelectasis slightly decreased from the prior study. No new lung pathology isobserved. Included upper abdominal organs: No significant patholo gy is observedwithin the visualized upper abdominal organs.IMPRESSION: Small bilat eral pleural effusion. Right effusion is similar toprior study. Left effusion sl ightly decreased in size. Patchy right lungopacities which may be due to pneumo freddy similar to previous examinations. 1.8cm nodule along the right lateral wall of t he trachea at the level of thethoracic inlet not observed on the prior study and can be due to a mucous plug.Ct Chest Wo ContResult Date: 12/18/2018Referring Physi chaya: KRYSTIAN MONAE Patient Name: EVELIO CARLIN THIS IS AFINAL REPORT FROM [facility] DATE OF SERVICE: 2018-12-18 01:22:40 IMAGES:[id number] EXAM: CT CHEST WO CO NTRAST HISTORY: .. Right lower lobe atelectasis..TECHNIQUE: Helical axial im aging from the thoracic inlet through the adrenalglands without contrast. Sagittal and coronal reconstructions were obtained.COMPARISON: CT chest without co ntrast of 12/13/2018. FINDINGS: .. Evaluationremains limited due to lack of IV contrast and patient positioning. The imagedthyroid gland remains atrophic. Th e aorta remains normal in caliber.Atherosclerotic calcifications a re again seen in the aorta. There is againcardiomediastinal shift towards the right. The heart remains normal in size andno pericardial effusion is noted. No obvious lymphadenopathy seen on thisunenhanced scan. No pneumothorax is noted. Since the prior exam there is beenincrease in bilateral pleural effusi ons with associated consolidations. Acalcified granuloma is again seen in th e right lower lobe. The imaged upperabdomen does not demonstrate any gross acute maggy nges. Osteopenia is again noted.Degenerative changes again seen in the imaged spine. Old healed right posteriorlower rib fractures are again seen.IMPRESSION: .. Limited s tudy demonstrating increase in bilateral pleuraleffusions with associated consoli dations with persistent cardiomediastinal shifttowards the right. Stable findings as noted above.. One or more of the followingdose reduction techniques were used: automated exposure control, adjustment ofthe mA and/or kV according to patient size, use of iterative reconstructivetechnique. THIS DOCUMENT H BEEN ELECTRONICALLY SIGNED Kamran Gillette MD 12/18/2018 04:49 GINA Verde Please call [facility] [phone] with questions. This report was electronically signed by: Tala MENDEZ 12/18/2018 04: 50 [facility] Chest Wo ContResult Date: 12/13/2018History: Respiratory difficulty . FINDINGS: CT scanning of the chest wasperformed helically from the lung api martine to the upper abdomen withoutintravenous contrast material. Sagittal and coronal reconstructed images aresubmitted. Scanning was performed utilizing dose lowering te chniques and iscompared to the prior study of 11/08/2018. The study is quite limited by patientpositioning. Evaluation of thoracic vascular structures is limited withoutin travenous contrast material does not reveal evidence of aneurysmal dilatationor defi nite CT evidence of dissection. Coronary artery calcification is seen.There is mi nimal calcification of the aortic arch. There is minimalcalcification of the descendin g thoracic aorta. There is no definite evidence ofany pathologically enlarged l ymph node in the visualized portions of themediastinum or axillae. Evaluation of pulmonary parenchymal structures revealssome atelectatic change in the right upper lo be. There is a small left pleuraleffusion as well as left basilar atelectatic change. There is some patchyopacity within the right middle lobe and right lower lobe which c ould also beinfiltrative in nature. Limited evaluation of upper abdominal structures isunremarkable. There is deviation of mediastinal structures to the right. Thi scould be as result of atelectatic change within the right lung. This has beenseen previously and is unchanged.IMPRESSION: Extremely limited study by patient posit ioning. Deviation ofmediastinal structures to the right as has been seen on prior stud ies. Leftpleural effusion. Bilateral infiltrates and atelectasis, greater on the rightthan the left.Cta Up Ext Lt W ContResult Date: 12/18/2018History: Arm cl audication. FINDINGS: CTA of the left upper extremity wasperformed helically from le ricky of the shoulder through the fingers after theintravenous administration of 119 cc of Isovue. Sagittal, coronal, and 3-Dreconstructed images obtained on an Real[employer] workstation are submitted. Noprior studies are available for comparison. Th e left subclavian artery is widelypatent. It is continuous with a widely patent left axillary artery. The axillaryartery is continuous with a widely patent left bra chial artery. The brachialartery bifurcates into a radial and ulnar artery just belo w the elbow. From thispoint distally streak artifact from patient positioning limits evaluation.However, the ulnar artery appears widely patent to the wrist. The radial a rteryis less well opacified but does appear patent to the wrist as well. Anintraosse ous artery also appears patent although it is poorly visualized aswell. The digital ar teries are not visualized on this study. There arebilateralpleural effusions note d both of which are moderate to large. Theeffusion on the left one is larger th an the right. Bibasilar atelectatic changethroughout much of the lower lobes is seen. There is a significant shift ofmediastinal structures to the right. T he liver is decreased in attenuationcompatible with fatty infiltr ation. The spleen is unremarkable. The adrenalglands are normal in appearance. The pancreas is grossly normal as is thegallbladder. A gastrostomy tube is no mikel in situ. The kidneys are unremarkable.There is a midline abdomina l wall hernia containing large and small bowel aswell as mesentery without eviden ce of obstruction. There is some presacralthickening and possibly some fr ee fluid noted. The patient is status post ORIFof the left hip with metallic hardwa re in situ.IMPRESSION: Patent left upper extremity arterial vessels although eval uationdistally is limited. Bilateral pleural effusions and bibasilar atelectasis.Shif t of mediastinal structures to the right.Ct Abd Pelv Wo ContResult Date: 12/21/2018His tory: ? Maturity of g-tube tract Technique: CT of the abdomen and pelvis wasperforme d from the dome of the diaphragm to the pubic symphysis without oral orintravenous con trast with dose lowering techniques. Sagittal and coronalreconstructions were performe d. Evaluation of solid abdominal viscera iscompromised by by the lack of intraven ous contrast. Evaluation of the bowelloops is compromised lack of oral contrast. All C T scans at this facility areperformed using dose optimization technique as appropria te to a performed exam,to include automated exposure control, adjustment of the mA a nd/or kV accordingto patient size (including appropriate matching first site-specific examinations), or use of iterative reconstruction technique. Comparison: CT scanof the chest performed 12/19/18 Findings: There is a small right pleural effusionw ith adjacent atelectasis. There is minimal left pleural fluid with adjacentatelecta sis. There is a pigtail catheter again identified on the left. The exactlocatio n of this catheter is difficult to ascertain benefits above the diaphragmto below the diaphragm. On today's study the tip appears to be located below thediaphragm. There is a small right pleural effusion with adjacent atelectasis.There is a G-tube i dentified in the stomach. The liver, gallbladder, spleen,pancreas, kidneys an d adrenal glands are unremarkable. No abdominal, pelvic oringuinal lymphadenop athy is identified. No free intraperitoneal fluid is noted.There is a ventral wall h ernia containing loops of what appear to be small bowelhowever are difficult to foll ow. There is mild perirectal stranding andpresacral edema correlate clinically. No dilated loops of bowel are identified.There is mild diverticulosis of the colon. The prostate, bladder and seminalvesicles appear unremarkable. The re are streak artifact obscuring portions ofthe pelvis due to a left hip ORIF. The re is subcutaneous gas identified alongthe right lower anterior pelvic wall.IMPRESS ION: There is a G-tube identified in the stomach. There is a tailcatheter identif ied on the left. The tip appears to be located below thediaphragm although is d ifficult to assess on CT. There is a small residualamount of pleural fluid as well as atelectasis along the left diaphragm. Thereis perirectal stranding and presacr al edema.Ct Chest W Cont F/uResult Date: 01/15/2019CT CHEST W CONT F/U Clinical da ta: R U L NODULE NEAR TRACHEA / BLOOD VESSEL.Priors: 01/10/2019. Technique: CT scan of the chest was performed from thethoracic inlet to below the diaphragm following administration of intravenouscontrast. The acquisition da ta was reviewed in the axial, sagittal and coronalplane. 100 cc of low osmolar iodi nated contrast-isovue 300 was injectedintravenously for the examinatio n. Utilizing silver holloware assembler algorithm theexamination was performed to optimize imaging quality by utilizing the lowestpossible radiation dose. Findings: There is no evidence of pathologicallymphadenopathy within the m ediastinum, bilateral hilar and bilateral axillarylocation. There is no evidence of a central endobronchial or an endotrachealmass. Previously seen nodule along the right lateral wall of the trachea nolonger visualized. This may have repr esented a mucus lung which has dislodged.Coronary artery calcifications noted. Atherosclerotic thoracic aorta withoutaneurysmal dilatation. Elevated l eft hemidiaphragm. There is a small leftpleural effusion with underlying pas sive atelectatic changes similar to priorstudy. Improved previously seen ri ght lower lobe lung infiltrate. There isassociated small right pleural effusio n similar to prior examination. No newlung pathology is observed. Included upper ab dominal organs: No significantpathology is observed within the visualized upper abd ominal organs.IMPRESSION: 1. Previously seen tracheal nodule is no longer visualized. 2.Small left pleural effusion with underlying passive atelectatic changes s imilarto prior study. Stable elevation of the left hemidiaphragm. 3. Stable small right pleural effusion. Interval improvement in the right lower lobe lunginfiltrate. No new lung findings seen.Ct Thoracentesis Insrt Chest TubeResult Date: 12/19/2018His tory: Pleural effusion. PROCEDURE: After being informed of the risks,benefits, an d potential alternatives procedure informed consent was obtained.The patient was jocelyn riley on the table in the [id number] decubitus position.CT scanning was perfo rmed location was chosen over the left flank. However, dueto the significant amount of patient motion and breathing motion was difficultto accurately assess a location for percutaneous paracentesis. Therefore, thiswas performed manually. After the ch osen region was prepped and draped in thenormal sterile fashion using maximum sterile barrier technique a lidocaineneedle was placed in the skin. This appeared to be in good position. Lidocainewas then used to anesthetize the skin and subcutaneous tissues in this location.Attempts were made to pass an 8 Congolese pigtail catheter thr ough this location.However, patient continuous motion was significant as wel l as excessivebreathing during the procedure. The catheter was placed at the same inte rspaceas well as marked on the prior CT sequence however, due to the excessive p atientmotion the catheter was far more inferior within the chest that on the pr iorsequences. The catheter appeared to enter the hemiabdomen on the left from theleft chest. The catheter was then pulled back to position where clear yellowfluid was asp irated. It was then sewn in position However, It appeared tomigrate forward and on the CT scanning appeared to again transgress thediaphragm. It was therefore pulled ba ck to a point where only a clear fluid wasaspirated and respiratory variation w as noted within the tube. It was then sewnin position using 2-0 silk sutures. FINDING S: Initial CT scanning revealed amoderate left pleural effusion. Attempts to nancy an adequate location forpercutaneous thoracentesis were quite limited due to excessive patient motionand breathing throughout the procedure. A location myrtle t appear to be a safelocation was marked. However, when the catheter was placed in this sameinterspace as well as marked the catheter appeared to be far more inferio rwithin the hemithorax than that seen previously. It appeared to enter the lef themithorax inferiorly and transgress the diaphragm with no evidence pathologicseq uela. Therefore, it was pulled back into the pleural space for adequatedrainage. 130 cc of lightly blood-tinged fluid was aspirated. The catheter wasattached to a Pleur-evac and wall suction.IMPRESSION: Left-sided thoracentesis described above .Xr Chest PortResult Date: 03/11/2019CHEST one view HISTORY: Fever. COPD. Reflux. C OMPARISON: 02/12/2019. Anadditional view was obtained. A tubular structure overlies t he stomach andmidabdomen with some gastric distention and elevation of the left hem idiaphragm.There is a poor inspiratory effort which compromises this interpretation. A repeat study is suggested. .There is no gross evidence of congestion,infiltrates, effu sions or pneumothorax. Old rib fractures are noted.IMPRESSION: No evidence of acute c ardiopulmonary disease. Poor inspiratoryeffort. Gastric distention.Xr Chest PortResult Date: 02/08/2019XR CHEST PORT Clinical data: Sepsis Priors: 2018. Findings: The heart sizeis unchanged. Limited inspiration with right basilar l eunice opacities which canbe due to pneumonia. Slightly elevated left hemidiaphragm wit h left basilaratelectasis. No evidence of CHF or large pleural effusion. Patient' s downwardpointing chain obscures the right lung apex. There is an old healed leftc lavicle fracture.IMPRESSION: Right lower lobe parenchymal opacities which can be due t opneumonia. Left basilar atelectatic changes in the juxtadiaphragmatic location.Limit ed inspiration compromises evaluation.Xr Chest PortResult Date: 01/21/2019Mack medina Physician: MONICA GOMEZ Patient Name: EVELIO CARLIN THIS IS AF[facility]AL REPORT FROM [facility] DATE OF SERVICE: 2019-01-21 22:23:43 IMAGES: 1EXAM: XY CH EST PORTABLE HISTORY: Rule out sepsis COMPARISON: Chest x-ray 01/17/19FINDINGS: The patient is rotated and obliquely positioned There is no airspaceconsolida tion. No pneumothorax. Persistent small bilateral pleural effusions Thecardiac s ilhouette appears grossly stable. Limited assessment secondary topositioning and p artially obscured heart borders The bones are demineralized.Limited visualization of t he thoracic spineIMPRESSION: Persistent small bilateral pleural effusions No radiograp hicevidence of acute airspace process THIS DOCUMENT HAS BEEN ELECTRONICALLY SIGNEDJ cecelia Cole MD 01/21/2019 22:46 EST M.D. Please call Imaging On [phone] ([phone]) with questions. This report was electronically signedby: Noel Cole MD 01/21/2019 10:48 PMXr Chest PortResult Date: 01/17/2019Portable chest x-ray. PRIOR EXAM: X-ray 01/10/2019 HISTORY: Hypoxia FINDINGS: Theheart is n ormal in size. The mediastinum and pulmonary vessels are unremarkable.There is no acu te infiltrate. The bony structures are intact.IMPRESSION: No acute pulmonary di sease. There is very limited visualization ofthe right lung due to patient position ing.Xr Chest PortResult Date: 01/10/2019XR CHEST PORT Clinical data: Sepsis Priors: 12/29/2018. Findings: Examination iscompromised due to limited inspiration and patient rotation. Heart size isunchanged. Haziness seen at the right lung base can be due to small effusionwith atelectasis/infiltrate. No confluent le ft lung process is seen. Noevidence of CHF.IMPRESSION: Limited study. Suspect right lung base process which may be due tosmall effusion with atelectasis/infilt rate.Xr Chest PortResult Date: 12/29/2018History: leukocytosis Technique : Portable chest x-ray 12/29/2018 11:01 AMComparison: 12/25/2018. FINDINGS: There is a right lower lobe infiltrate oratelectasis which is increased since p rior exam. There is poor inspiration.There is a small left pleural effusion. The exam is rotated. Evaluation of thecardiac silhouette is limited by projection. The visualized osseous structuresappear unremarkable.IMPRESSION: There is a righ t lower lobe infiltrate or atelectasis which isincreased since prior exam.Xr Chest Po rtResult Date: 12/18/2018Portable chest x-ray. PRIOR EXAM: 12/12/2018 and 11/25/2018 HIST ORY: Pneumonia andpleural effusions FINDINGS: The heart is normal in size. The mediast inum andpulmonary vessels are unremarkable. There is haziness within the lung basesb ilaterally... The bony structures are intact.IMPRESSION: Haziness within the l eunice bases bilaterally that could representsmall pleural effusions and/or subsegmental atelectasis. Similar findings wereseen on prior exams.Xr Chest PortRes ult Date: 12/13/2018History: Respiratory difficulty. FINDINGS: A frontal portable view of the chestis compared to the prior study from earlier in the same day. EKG leads overliethe chest. The cardiac silhouette is normal in size. The left l eunice is clear. Theright lung is poorly evaluated due to significant rotation. T he possibility ofright basilar infiltrate or atelectatic change cannot be excluded. M ediastinaland hilar structures are poorly evaluated as well.IMPRESSION: Study quit e limited due to rotation. Opacity at the right lung basemay be infiltrative or at electatic in nature.Xr Chest PortResult Date: 12/12/2018History: Fever. Lethargy. FINDI NGS: 2 frontal views of the chest are compared tothe prior study of 11/25/2018. EKG leads overlie the chest. The cardiacsilhouette is normal in size. The re may be some streaky changes at the lungbases. Evaluation of the lungs and m ediastinal structures is quite limited dueto rotation.IMPRESSION: Study quite limited by rotation. Basilar streaks noted.Duplex Upper Ext Venous LeftResult Date: 2018LEFT UPPER EXTREMITY DOPPLER History: DVT. High-resolution linear sonography o fthe left upper extremity was performed using Color Doppler Flow and DuplexDoppler Spe ctral sonography. There is no evidence of a deep vein thrombosis. Thecephalic vein c ould not be visualized. The left internal jugular, subclavian,axillary, brachial a nd basilic veins are patent and completely compressible.Spontaneous and phasic flow is noted.IMPRESSION: No evidence of deep vein thrombosis.Duplex Upper Ext Venous LeftResult Date: 12/26/2018DUPLEX UPPER EXT VENOUS LEFT Clinical Data: Arm swelling, DVT suspectedFindings: The visualized segments of the left upper extremity diogo ous circulationfrom the level of the subclavian vein to the brachial vein is compressible andshows normal phasic flow without an intraluminal thrombus. In ad dition, theinternal jugular vein and the basilic vein is also patent. Extremely l imitedexam because the patient was unable to cooperate and this was done in a portabl efashion.IMPRESSION: No evidence of deep vein thrombosis within the visualized left up perextremity venous circulation. Limited study.Duplex Lower Ext Venous BilatResul t Date: 02/10/2019RIGHT and LEFT LOWER EXTREMITY VENOUS DOPPLER STUDIES: Right and Left lowerextremity venous spectral Doppler studies are performed using Berthoud r Doppler Flowand enhanced Duplex Spectral technique. History: Pain and swelling. T here is noevidence of deep venous thrombosis present. There is normal compressibilit y,augmentation and phasicity from common femoral vein through popliteal vein. .Th e anterior tibial and peroneal veins are not visualized. The posterior tibialveins of the calf are patent.IMPRESSION: No evidence of lower extremity deep venous thrombosi s bilaterally.Limited calf evaluation.Duplex Lower Ext Venous BilatResult Date: 2018HISTORY: swelling to lower extremities TECHNIQUE: Bilateral lower extremityveno us Doppler ultrasound Using real time and color-flow Doppler as well asspectral an alysis and ultrasound examination was performed of the lowerextremities bilate rally. FINDINGS: On the right side the common femoral vein,superficial femoral vein al grisel its entire course, as well as popliteal vein allappeared widely patent, were eas pierre compressible, showed normal spontaneousflow. The calf veins were not visualized due to body habitus. On the left sidethe common femoral vein, superficial femoral vein along its entire course, aswell as popliteal vein all appeared widely pa tent, were easily compressible, andshowed normal spontaneous flow. The calf veins were not visualized due to bodyhabitus.IMPRESSION: Normal bilateral lower extremity venous Doppler ultrasound with noevidence of deep vein thrombosis. Impression: Suspect recurrent aspiration pneumonia. Acute COPD exacerbation Acu te respiratory failure. Dysphagia R/o sepsis.Plan: IV vancomycin and zosyn Follow culturesSigned By: Natasha Dudley MD March 11, 2019 3:10 PM Name Value Range Interpretation Code Description Data Harriett rce(s) Supporting Document(s ) ID Date Data Source [id number] 03/11/2019 03:00:22 PM EST [facility] Pt found unresponsive, diaphoretic, shal low respiration at 28 breath/min. at bedside, instructed not to call RR, b ut place patient on bi-pap. RTnotified. Patient placed on bi-pap as per order. N o ABGs needed as per . Name Value Range Interpretation Code Description Data Harriett rce(s) Supporting Document(s ) ID Date Data Source [id number] 03/11/2019 02:14:03 PM [facility] PULMONARY/ CCM- Consult [facility]P.CCinthia Monae MD., F.C.C.P.Stella Hamilton MD., F.C.C.P. 9W 1 [facility] [address] [place] [id number] [place] [address] [id number] Patient: Evelio Carlin Sex: male DOA: 2018Date of : 1950 Age: 68 y.o. LOS: LOS: 0 daysPCP: Mili Hills DOSubjective:CHIEF COMPLAINT:ACUTE RESPIRATORY DISTRESSHISTORY OF PRESENT ILLNESSEvelio is a 68 y.o. male who presents from [facility] with medical history ofDyspha jaydon, recurrent aspiration pneumonia, s/p g/t conversion to jtube on02/16/19, hyperlipi demia,hyperparathyroid, unspecified,seizure, large hiatalhernia, anxiety disorder, personal history of pulmonary embolus,COPD, GERD,Schizophrenia, Unspecified,Kyphosis ,Parkinson disease, Severe intellectualdisabilities.and Generalized muscle weakness.Pt was transferred to the ED; he was noted having chest congestion and wh eezing.Nebulizer treatment given with no improvement. He had visible difficulty i nbreathing. He was found with fever, temp 101.2, tachypneic, and hypoxia [id number] of 90 %on 4 LPM O2 via NC. Tylenol was given.In the ED, temp was 99.2 and pt was tachypneic.CXR showed No evidence of acute cardiopulmonary disease. Poor inspiratoryeffort. Gastric distention.His labs were remarkable for Leukocytosis (19,000) and CO2 of 40. On examination pt was found with audible respiratory crackles and rhonchi. Pt isbeing admitt ed with initial encounter diagnosis of Pneumonia.Pt is non verbal and is unable to participate with his history.Pt was seen and examined at bedside, he is lethargic, bu t easily arousable. Heis wearing NRB mask.IV vancomycin 1gm for one dose, Solu Medrol and IV fluids were ordered earlierthis morning. ABG with a pH 7.46/54/86/38/O2SAT 98 % o n FIO2 100 % NRB Mask. 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 No pertinent family history. No Known Aller gies Social HistoryTobacco Use Smoking status: Never Smoker Smokeless tobacco: Never U sedSubstance Use Topics Alcohol use: NoHistory reviewed. No pertinent family history.No Known AllergiesPrior to Admission medicationsMedication Sig Start Date End Date Taking? Authorizing Providercefepime 2 gram 2 g IVPB 2 g by IntraVENous route every eight (8) hours.02/12/19 Christos Lopez MDheparin sodium,porcine (HEPARIN, PORCI NE,) 5,000 unit/mL injection 1 mL bySubCUTAneous route every twelve (12) hours every twel ve (12) hours. 02/12/19Christos Lopze MDpantoprazole (PROTONIX) 40 mg granules for oral suspension 40 mg by Per NG tuberoute Daily (before breakfast). 02/13/19 Christos Jean MDpredniSONE (DELTASONE) 10 mg tablet Take 20 mg by mouth daily. 02/12/19Christos Corey, MDpredniSONE (DELTASONE) 10 mg tablet Take 10 mg by mouth daily (with breakfas t).02/12/19 Christos Lopez, MDmultivitamin (MULTI-DELYN, WELLESSE) liqd 5 mL by Per G Tube route daily.Provider, Historicalvalproic acid, as sodium salt, (DEPAKENE) 250 mg/ 5 mL (5 mL) soln oral [id number] mg by Per G Tube route every twelve (12) hours. Provid er, Historicalacetylcysteine (MUCOMYST) 100 mg/mL (10 %) nebulizer solution Take 4 mL byin halation two (2) times a day. Provider, Historicalzinc oxide 10 % topical cream Apply to affected area daily. Ribbon around GTsite Provider, Historicalomeprazole (PRILOSEC) 2 mg/mL susp 2 mg/mL oral suspension (compounded) 40 mg byPer G Tube route da pierre. Provider, Historicalsilver sulfADIAZINE (SILVADENE) 1 % topical cream Apply to affected area two(2) times a day. 1 inch ribbon- right edge Provider, Historicalacetam inophen (TYLENOL) 32MG/ML soln solution Take 20.3 mL by mouth every four(4) hours as neede d for Pain or Fever. 01/24/19 Mili Hills DOinfluenza vaccine 2019-20, 65 yrs+,,PF , (FLUZONE HIGH-DOSE) syrg injection 0.5mL by IntraMUSCular route PRIOR TO DISCHARGE. 01/24/19 Mili Hills DOcholestyramine-aspartame (QUESTRAN LIG HT) 4 gram packet Take 1 Packet by mouthtwo (2) times a day.Patient taking differently: 4 g two (2) times a day. Via G tube. 01/24/19Mili Hills DOclorazepate ( TRANXENE) 3.75 mg tablet 1 Tab by Per G Tube route nightly. MaxDaily Amount: 3.75 mg. Mili Hills DOcinacalcet (SENSIPAR) 30 mg tablet Take 2 Tabs by mouth daily.Pat ient taking differently: 60 mg daily. Via G tube 12/30/18 Mili HillsDOlamoTRIgine (LAMICTAL) 25 mg tablet 2 Tabs by Per G Tube route two (2) times aday. 12/30/18 Maryam Hills DOalbuterol-ipratropium (DUO-NEB) 2.5 mg-0.5 mg/3 ml nebu 3 mL by Nebulization route every six (6) hours. Every 6 hours while awake 12/30/18 Mili Hills DObudeso nide (PULMICORT) 0.5 mg/2 mL nbsp 2 mL by Nebulization route two (2) timesa day. Mili Hills DObacitracin 500 unit/gram ointment Apply 1 Packet to aff ected area two (2) timesa day. Indications: minor skin infection due to bacteria, facial s cabs 12/30/18Mili Hills DOREVIEW OF SYSTEMS: UNRESPONSIVE NO ROS CANNOT BE DONEGe neral: POSITIVE for fever, chills, sweats, weaknessEyes: negative for blurred visio n, eye pain, loss of vision, diplopiaEar Nose and Throat: negative for rhinorrhea, pharyng itis, otalgia, tinnitus,speech or swallowing difficultiesRespiratory: POSITIVE + for cough, sputum production, +SOB,+ wheezing,DAVALOS, pleuritic painCardiology: negative for chest pain, palpitations, orthopnea, PND, edema,syncopeGastrointestinal: nega tive for abdominal pain, N/V, dysphagia, change in bowelhabits, bleedingGenitourinary: nega tive for frequency, urgency, dysuria, hematuria,incontinence, DISTENDED STOMA CH .Muskuloskeletal : negative for arthralgia, myalgiaHematology: negative for easy bru ising, bleeding, lymphadenopathyDermatological: negative for rash, ulceration, mole charles ge, new lesionEndocrine: negative for hot flashes or polydipsiaNeurological: negative for headache, dizziness, confusion, focal weakness,paresthesia, memory loss, gait disturbancePsychological: negative for anxiety, depression, agitationObjective:VITALS:Dayanara tong Vitals for the past 24 hrs: BP Temp Pulse Resp SpO2 Height Whbsas50/27/19 1326 143 /75 97.8 F (36.6 C) 74 - 99 % - - 03/11/19 1145 - - - - 96 % - -03/11/19 1010 140/82 98.1 F (36.7 C) 92 20 95 % - -03/11/19 0854 106/54 98.8 F (37.1 C) 83 30 100 % - - 9 0740 - 98.6 F (37 C) - - - - - 03/11/19 0716 - 99.2 F (37.3 C) - - - - -03/11/19 0600 103/53 - 95 (!) 39 94 % - -03/11/19 0530 100/63 - (!) 101 (!) 31 91 % - -03/11/19 0500 118 /67 - (!) 103 (!) 38 92 % - -03/11/19 0403 125/56 (!) 100.5 F (38.1 C) (!) 105 (!) 35 93 % 5' 2" (1.575 m)61.2 kg (135 lb)Pulse OX:SpO2 Readings from Last 6 Encounters:03/11/19 99%02/19/19 96%02/18/19 92%01/24/19 93%12/30/18 96%11/27/18 91%@LASTSAO2(6)@Physical Exa m:UNRESPONSIVE , MODERATE RESPIRATORY DISTRESS ON NONREBREATHER MASK General: Alert, cooperative, MODERATE RESPIRATORY distress, appearsstated age. Head: Normocephalic, without obvious abnormality, atraumatic. Eyes : Conjunctivae/corneas clear. PERRL, EOMs intact. Nose: Nares normal. No drainage or sinus tenderness Throat: Lips, mucosa, and tongue normal Neck: Supple, symmetrical, trachea midline, no adenopathy,thyroid: no enlar gement/tenderness/nodules, no carotid bruit and no JVD. Lungs: POOR VENTILATION IN LEFT LUNG , DULLNESS + L L L ,WHEEZING +2 to auscultation bilaterally. Chest Wal l: No tenderness or deformity. Heart: Regular rate and rhythm, S1, S2 normal , no murmur, click,rub or NO gallop. Abdomen: Soft, non-tender. Bowel soun ds normal. No masses, No organomegaly.MILD DISTENTION + Extremities: Extremities normal, atraumatic, no cyanosis or edema. Pulses: 4+ bilaterally Ski n: Skin color, texture, turgor normal. No rashes or lesions. Neurologic: UNRESPONSIVE, CNII-XII intact. No focal motor or sensorydeficit.Current Facility-Administ ered MedicationsMedication Dose Route Frequency sodium chloride (NS) flush 5-10 mL 5-10 mL IntraVENous PRN methylPREDNISolone (PF) (SOLU-MEDROL) injection 40 mg 40 mg Int raVENous Q6H 0.9% sodium chloride infusion 70 mL/hr IntraVENous CONTINUOUS cinacalcet (SENSIPAR) tablet 60 mg 60 mg Oral DAILY ALPRAZolam (XANAX) tablet 0.25 mg 0.25 mg Per G Tube QHS heparin (porcine) injection 5,000 Units 5,000 Units SubCUTAneous Q1 2H lamoTRIgine (LaMICtal) tablet 50 mg 50 mg Per G Tube BID multivitamin (ONE A DAY) tab let 1 Tab 1 Tab Per G Tube DAILY [START ON 03/12/2019] pantoprazole (PROTONIX) gran ules for oral suspension 40mg 40 mg Per G Tube ACB valproic acid (as sodium salt) (DEP AKENE) 250 mg/5 mL (5 mL) oral solution 750mg 750 mg Per G Tube Q12H acetaminophen (TYLEN OL) solution 650 mg 650 mg Per G Tube Q4H PRN acetylcysteine (MUCOMYST) 100 mg/mL (10 %) nebulizer solution 400 mg 4 mLInhalation Q12H budesonide (PULMICORT) 500 mcg/2 ml nebu lizer suspension 500 mcg [id number] albuterol-ipratropium (DUO-NEB) 2.5 MG-0 .5 MG/3 ML 3 mL Nebulization Q6HWA RTIntake and Output:Last three shifts: No intake/out put data recorded.Lab Results:Recent Results (from the past 24 hour(s))EKG, 12 LEAD, INITIA L Collection Time: 03/11/19 4:09 AMResult Value Ref Range Ventricular Rate 104 BPM Atria l Rate 104 BPM P-R Interval 134 ms QRS Duration 85 ms Q-T Interval 299 ms QTC Calculation ( Bezet) 393 ms Calculated P [place] 63 degrees Calculated R [place] 17 degrees Calculated T [place] 6 degrees Diagnosis Sinus tachycardiaBaseline wander in lead(s) V4 CULTURE, BLOOD Collection Time: 03/11/19 4:14 AMResult Value Ref Range Special Request s: NO SPECIAL REQUESTS Culture result: NO GROWTH AFTER 3 HOURSCULTURE, BLOOD Collection T jose alejandro: 03/11/19 4:14 AMResult Value Ref Range Special Requests: NO SPECIAL REQUESTS Cu lture result: NO GROWTH AFTER 3 HOURSLACTIC ACID Collection Time: 03/11/19 4:14 AMResult Value Ref Range Lactic acid 1.6 0.4 - 2.0 MMOL/LCBC WITH AUTOMATED DIFF Collection Time: 03/11/19 4:14 AMResult Value Ref Range WBC 18.6 (H) 4.8 - 10.6 K/uL RBC 4.19 (L) 4. 70 - 6.00 M/uL HGB 13.4 (L) 14.0 - 18.0 g/dL HCT 41.2 (L) 42.0 - 52.0 % MCV 98.3 (H) 81.0 - 94.0 FL MCH 32.0 27.0 - 35.0 PG MCHC 32.5 30.7 - 37.3 g/dL RDW 15.9 (H) 11.5 - 14.0 % P LATELET 263 130 - 400 K/uL MPV 9.2 9.2 - 11.8 FL NEUTROPHILS 81 (H) 48.0 - 72.0 % LYMPHOC YTES 9 (L) 18.0 - 40.0 % MONOCYTES 10 2.0 - 12.0 % EOSINOPHILS 0 0.0 - 7.0 % BASOPHILS 0 0. 0 - 3.0 % ABS. NEUTROPHILS 14.9 (H) 1.5 - 6.6 K/UL ABS. LYMPHOCYTES 1.7 1.5 - 3.5 K/UL ABS. MONOCYTES 1.8 (H) 0.0 - 1.0 K/UL ABS. EOSINOPHILS 0.0 0.0 - 0.7 K/UL ABS. BASOPHILS 0.0 0. 0 - 0.1 K/UL DF AUTOMATED IMMATURE GRANULOCYTES 1 0.0 - 2.0 %METABOLIC PANEL, COMPREHENSIV E Collection Time: 03/11/19 4:14 AMResult Value Ref Range Sodium 132 (L) 136 - 145 mmol/ L Potassium 3.9 3.5 - 5.1 mmol/L Chloride 92 (L) 98 - 107 mmol/L CO2 40 (H) 21 - 32 mmol/ L Anion gap 4 (L) 10 - 20 mmol/L Glucose 94 74 - 106 mg/dL BUN 11 7 - 18 mg/dL Creatinine 0.47 (L) 0.70 - 1.30 mg/dL GFR est AA >60 >60 ml/min/1.73m2 GFR est non-AA >60 >60 ml/ min/1.73m2 Calcium 9.6 8.5 - 10.1 mg/dL Bilirubin, total 0.3 0.2 - 1.0 mg/dL ALT (SGPT) 11 (L) 13 - 61 U/L AST (SGOT) 7 (L) 15 - 37 U/L Alk. phosphatase 66 45 - 117 U/L Protein, tot al 6.9 6.4 - 8.2 g/dL Albumin 2.7 (L) 3.5 - 4.7 g/dL Globulin 4.2 1.7 - 4.7 g/dL A-G Rat io 0.6 (L) 0.7 - 2.8URINALYSIS W/ RFLX MICROSCOPIC Collection Time: 03/11/19 5:10 AMResult Value Ref Range Color YELLOW YEL Appearance CLOUDY (A) CLEAR Specific gravity 1.017 1.003 - 1.030 pH (UA) 8.5 (H) 4.6 - 8.0 Protein TRACE (A) NEG mg/dL Glucose NEGATIVE NE G mg/dL Ketone NEGATIVE NEG mg/dL Bilirubin NEGATIVE NEG Blood NEGATIVE NEG Urobil inogen 1.0 0.2 - 1.0 EU/dL Nitrites NEGATIVE NEG Leukocyte Esterase NEGATIVE NEG WBC 0-3 0 - 5 /hpf RBC 0-3 0 - 2 /hpf Epithelial cells 0-3 0 - 10 /hpf Bacteria NONE NONE /hpf Casts NONE NONE /lpf Crystals, urine NONE NONE /LPFBLOOD GAS, ARTERIAL Collection Time: 03/11/19 8:08 AMResult Value Ref Range pH 7.46 (H) 7.35 - 7.45 PCO2 54 (H) 32 - 48 mmHg PO2 86 83 - 108 mmHg CO2, TOTAL 40 (H) 19 - 24 mmol/L BICARBONATE 38 (H) 21 - 28 mmol/L O2 SAT 98 94 - 98 % BASE EXCESS 12.3 (H) 0 - 3 mmol/L SITE RIGHT BRACHIAL DEVICE NONREB REATHER MASK O2 FLOW 12 L/min FIO2 100.0 % Performed by [id number] ACID Collection Time: 03/11/19 9:30 AMResult Value Ref Range Lactic acid 1.7 0.4 - 2.0 MMOL/LABG:Rece nt Labs 808PH 7.46*PCO2 54*PO2 86HCO3 38*FIO2 100.0Recent Glucose Results:Lab ResultsComponent Value Date/Time GLU 94 03/11/2019 04:14 AMCULTURES:All Micro Results Proce dure Component Value Units Date/Time CULTURE, BLOOD [[id number]] Collected: 03/11/19 0 414 Order Status: Completed Specimen: Blood Updated: 03/11/19735 Special Request s: NO SPECIAL REQUESTS Culture result: NO GROWTH AFTER 3 HOURS CULTURE, BLOOD [[id number]] Collected: 03/11/19 0414 Order Status: Completed Specimen: Blood Updated: 36 Special Requests: NO SPECIAL REQUESTS Culture result: NO GROWTH AFTER 3 HOURSI mages:[email or web address] Results (most recent):Results from Hospital Encounter encounter on 01/10/19CT CHEST W CONT F/U Narrative CT CHEST W CONT F/UClinical data: R U L NODULE NEAR TRACHEA / BLOOD VESSEL.Priors: 01/10/2019.Technique: CT scan of the ches t was performed from the thoracic inlet to belowthe diaphragm following administrat ion of intravenous contrast. The acquisitiondata was reviewed in the axial, sagittal and coronal plane. 100 cc of lowosmolar iodinated contrast-isovue 300 was injected intrave nously for theexamination. Utilizing silver holloware assembler algorithm the examination was performed tooptimize imaging quality by utilizing the lowest possible radiation dose.Findings: There is no evidence of pathological lymphadenopathy within themediastinum, bilateral hilar a nd bilateral axillary location. There is noevidence of a central endobronchial or an endotracheal mass. Previously seennodule along the right lateral wall of the trachea no longer visualized. Thismay have represented a mucus lung which has dislodged. Coronar y arterycalcifications noted. Atherosclerotic thoracic aorta without aneurysmaldilatat ion.Elevated left hemidiaphragm. There is a small left pleural effusion withunderlying pas sive atelectatic changes similar to prior study. Improvedpreviously seen right lower lobe lung infiltrate. There is associated smallright pleural effusion similar to prior examin ation. No new lung pathology isobserved.Included upper abdominal organs: No significant p athology is observed within thevisualized upper abdominal organs. Impression IMPRESSION: 1. Previously seen tracheal nodule is no longer visualized.2. Small left pleural effusi on with underlying passive atelectatic changessimilar to prior study. Stable e levation of the left hemidiaphragm.3. Stable small right pleural effusion. Interval improvement in the rightlower lobe lung infiltrate. No new lung findings seen.T elemetry: normal sinus rhythmECG: normal EKG, normal sinus rhythmEchocardiogram: Not done Care Plan discussed with: JuanPatientNavimiAlena [employer] Sales Floor Team Leader: Kevon HILLS Re commended Disposition:Home with FamilyHH/PT/OT/RNS NF/LTC XSAHR Cod e Status:Full Code ROMAN/TRISTA _Problem List:Active Problems: Pneumonia (11/08/2018) Acute respiratory failure w ith hypoxia (HCC) (01/10/2019) Assessment:1. ACUTE HYPERCAPNIC WITH HYPOXIC RESPIRATORY F AILURE2. POSSIBLE PNEUMONIA L L L3. AC COPD4. METABOLIC ENCEPHALOPATHY5. MENTAL R ETARDATION6. DYSPHAGIA7. GASTRIC DISTENTION8. SCHIZOPHRENIA9. CHEST XRAY SHOWS C OPD , ELEVATED LEFT HEMIDIAPHRAGM , VOLUME LOSS ?INF. LLLPlan:1. CULTURE BLOOD , URINE , SPUTUM2. AGREE WITH ZOSYN AND I V VANCOMYCIN3. DUO NEB Q 4 H4. NEEDS BI PAP SUPPORT FOR VENTILATION5. I V SOLUMEDROL6. PUT PEG TO SUCTION TILL GASTRIC DIS TENTION IS RESOLVED7. I V HYDRATION8. OVER ALL PROGNOSIS IS GUARDEDCode Status: FULLThe patient has elected SISTER to be the surrogate decision makerDVT Prophyla xis: LOVENOXGI Prophylaxis: PROTONIXBaseline:ASP. PNEUMONIA WITH RESP. DISTRESS AND BRON CHIOSPASMTOTAL TIME: 75 Comments>50% of visit spent in counseling and coordination of careCritical Care Provided 75 Minutes non procedure based [facility] jose Monae MD F.C.C.P. Name Value Range Interpretation Code Description Data Harriett rce(s) Supporting Document(s ) ID Date Data Source [id number] 03/11/2019 01:25:46 PM [facility] ADMISSION NOTENAME: Evelio Eddie B: 1950MRN: [id number]/Time: 03/11/2019 10:24 AMSubjective:CHIEF COMP LAINT: Fever with Temp 101.2, tachypneic and hypoxic.HISTORY OF PRESENT ILLNESS:Gunner brooks is a 68 y.o. male who presents from [facility] with medical history ofDysphagia, recur rent aspiration pneumonia, s/p g/t conversion to jtube on02/16/19, hyperlipi demia,hyperparathyroid, unspecified,seizure, large hiatalhernia, anxiety disorder, pe rsonal history of pulmonary embolus,COPD, GERD,Schizophrenia, Unspecified,Kyphosis ,Parkinson disease, Severe intellectualdisabilities.and Generalized muscle weakness.Pt was transferred to the ED; he was noted having chest congestion and wheezing.Nebulizer treatment given with no improvement. He had visible difficult y inbreathing. He was found with fever, temp 101.2, tachypneic, and hypoxia [id number] of 90 %on 4 LPM O2 via NC. Tylenol was given.In the ED, temp was 99.2 and pt wa s tachypneic.CXR showed No evidence of acute cardiopulmonary disease. Poor inspirator yeffort. Gastric distention.His labs were remarkable for Leukocytosis (19,000) and CO2 of 40. Onexamination pt was found with audible respiratory crackles and rhonchi . Pt isbeing admitted with initial encounter diagnosis of Pneumonia.Pt is non verbal and is unable to participate with his history.Pt was seen and examined at [facility], he is lethargic, but easily arousable. Heis wearing NRB mask.IV vancomycin 1gm for one dose, Solu Medrol and IV fluids were ordered earlierthis morning. 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 No pertinent family history.No Known AllergiesPrior to Admission medicationsMedication Sig Start Date End Date Taking? Authorizing Providercefepime 2 gram 2 g IVPB 2 g by IntraVENous route e very eight (8) hours.02/12/19 Christos Lopez MDheparin sodium,porcine (HEPARIN, PORCINE,) 5,000 unit/mL injection 1 mL bySubCUTAneous route every twelve (12) h ours every twelve (12) hours. 02/12/19Christos Lopez MDpantoprazole (PROTONIX) 40 mg granules for oral suspension 40 mg by Per NG tuberoute Daily (before breakfast). 02/13/19 Christos Lopez, MDpredniSONE (DELTASONE) 10 mg tablet Ta ke 20 mg by mouth daily. 02/12/19Christos Lopez, MDpredniSONE (DELTASONE) 10 mg tab let Take 10 mg by mouth daily (with breakfast).02/12/19 Christos Lopez, M Dmultivitamin (MULTI-DELYN, WELLESSE) liqd 5 mL by Per G Tube route daily.Provider, H istoricalvalproic acid, as sodium salt, (DEPAKENE) 250 mg/5 mL (5 mL) soln oral [id number] mg by Per G Tube route every twelve (12) hours. Provider, Historic alacetylcysteine (MUCOMYST) 100 mg/mL (10 %) nebulizer solution Take 4 mL byinhalatio n two (2) times a day. Provider, Historicalzinc oxide 10 % topical cream Apply to affected area daily. Ribbon around GTsite Provider, Historicalomeprazole (PRILOSEC) 2 mg/mL susp 2 mg/mL oral suspension (compounded) 40 mg byPer G Tu be route daily. Provider, Historicalsillani sulfADIAZINE (SILVADENE) 1 % topical cre am Apply to affected area two(2) times a day. 1 inch ribbon- right edge Provid er, Historicalacetaminophen (TYLENOL) 32MG/ML soln solution Take 20.3 mL by mouth ever y four(4) hours as needed for Pain or Fever. 01/24/19 Mili Hills DOinfluenza vaccine 2019-20, 65 yrs+,,PF, (FLUZONE HIGH-DOSE) syrg injection 0.5mL by Intra MUSCular route PRIOR TO DISCHARGE. 01/24/19 Mili Hills DOcholestyramine-aspart ayan (QUESTRAN LIGHT) 4 gram packet Take 1 Packet by mouthtwo (2) times a day.Patie nt taking differently: 4 g two (2) times a day. Via G tube. 01/24/19Nelson, Mili , DOclorazepate (TRANXENE) 3.75 mg tablet 1 Tab by Per G Tube route nightly. MaxDail y Amount: 3.75 mg. 12/30/18 Mili Hills DOcinacalcet (SENSIPAR) 30 mg tablet Cecilio e 2 Tabs by mouth daily.Patient taking differently: 60 mg daily. Via G tube 12/14 10/31 Mili HillsDOlamoTRIgine (LAMICTAL) 25 mg tablet 2 Tabs by Per G Tube route two (2) times aday. 12/30/18 Mili Hills DOalbuterol-ipratropium (DUO-NEB) 2.5 mg-0.5 mg/3 ml nebu 3 mL by Nebulizationroute every six (6) hours. E very 6 hours while awake 12/30/18 Mili HillsDObudesonide (PULMICORT) 0.5 mg/ 2 mL nbsp 2 mL by Nebulization route two (2) timesa day. 12/30/18 Mili Hills D Obacitracin 500 unit/gram ointment Apply 1 Packet to affected area two (2) timesa d ay. Indications: minor skin infection due to bacteria, facial scabs 12/30/18Maryam Hills DOREVIEW OF SYSTEMS: Unable to obtain ROS due to patient factors.Objective:VIT ALS:Visit VitalsBP 140/82 (BP 1 Location: Left arm, BP Patient Position: Lying rig ht side)Pulse 92Temp 98.1 F (36.7 C)Resp 20Ht 5' 2" (1.575 m)Wt 61.2 kg (135 lb)S pO2 95%BMI 24.69 kg/m PHYSICAL EXAM:General: Lethargic, cooperative, no distress, a ppears stated age.Head: Normocephalic, without obvious abnormality, atraumatic. Eyes: Conjunctivae clear, anicteric sclerae. Pupils are equalNeck: no dheeraj opathy, no carotid bruit and no JVD..Lungs: Bilateral air entry. Postive rhonchi bi basilar.No Wheezing. No rales.Chest wall: No Accessory muscle use.Heart: Regular ra te and rhythm, no murmur, or rub.Abdomen: Positive peg in place, soft, non-tender. Not distended. Bowel soundsnormal.Extremities: Extremities no rmal, atraumatic, No cyanosis. trace pedal, ankleedema on right.Skin: Warm and dry. No rashes or lesions. Not JaundicedLymph nodes: Cervical, supracla vicular normal.Psych: Unable to fully assessNeurologic: EOMs intact. No facial asymmetry. No aphasia or slurred speech.Generalized weakness, contracture s legs, Awake.LAB DATA REVIEWED:Recent Results (from the past 24 hour(s))EKG, 1 2 LEAD, INITIAL Collection Time: 03/11/19 4:09 AMResult Value Ref Range Ventricula r Rate 104 BPM Atrial Rate 104 BPM P-R Interval 134 ms QRS Duration 85 ms Q-T I nterval 299 ms QTC Calculation (Bezet) 393 ms Calculated P [place] 63 degrees Calculated R [place] 17 degrees Calculated T [place] 6 degrees Diagnosis Sinus tachycardiaBaseline wand er in lead(s) [id number], BLOOD Collection Time: 03/11/19 4:14 AMResult Value Ref Range Special Requests: NO SPECIAL REQUESTS Culture result: NO GROWTH AFTER 3 HOURSC ULTURE, BLOOD Collection Time: 03/11/19 4:14 AMResult Value Ref Range Special Request s: NO SPECIAL REQUESTS Culture result: NO GROWTH AFTER 3 HOURSLACTIC ACID Collecti on Time: 03/11/19 4:14 AMResult Value Ref Range Lactic acid 1.6 0.4 - 2.0 MMOL/LCB C WITH AUTOMATED DIFF Collection Time: 03/11/19 4:14 AMResult Value Ref Range WBC 18.6 (H) 4.8 - 10.6 K/uL RBC 4.19 (L) 4.70 - 6.00 M/uL HGB 13.4 (L) 14.0 - 18. 0 g/dL HCT 41.2 (L) 42.0 - 52.0 % MCV 98.3 (H) 81.0 - 94.0 FL MCH 32.0 27.0 - 35.0 PG MCHC 32.5 30.7 - 37.3 g/dL RDW 15.9 (H) 11.5 - 14.0 % PLATELET 263 130 - 400 K/u L MPV 9.2 9.2 - 11.8 FL NEUTROPHILS 81 (H) 48.0 - 72.0 % LYMPHOCYTES 9 (L) 18.0 - 4 0.0 % MONOCYTES 10 2.0 - 12.0 % EOSINOPHILS 0 0.0 - 7.0 % BASOPHILS 0 0.0 - 3.0 % ABS. NEUTROPHILS 14.9 (H) 1.5 - 6.6 K/UL ABS. LYMPHOCYTES 1.7 1.5 - 3.5 K/UL ABS. MONO CYTES 1.8 (H) 0.0 - 1.0 K/UL ABS. EOSINOPHILS 0.0 0.0 - 0.7 K/UL ABS. BASOPHILS 0.0 0. 0 - 0.1 K/UL DF AUTOMATED IMMATURE GRANULOCYTES 1 0.0 - 2.0 %METABOLIC PANE L, COMPREHENSIVE Collection Time: 03/11/19 4:14 AMResult Value Ref Range Sodium 132 (L) 136 - 145 mmol/L Potassium 3.9 3.5 - 5.1 mmol/L Chloride 92 (L) 98 - 107 mmol/L C O2 40 (H) 21 - 32 mmol/L Anion gap 4 (L) 10 - 20 mmol/L Glucose 94 74 - 106 mg/dL BUN 11 7 - 18 mg/dL Creatinine 0.47 (L) 0.70 - 1.30 mg/dL GFR est AA >60 >60 ml/min/1.7 3m2 GFR est non-AA >60 >60 ml/min/1.73m2 Calcium 9.6 8.5 - 10.1 mg/dL Bilirubin, total 0.3 0.2 - 1.0 mg/dL ALT (SGPT) 11 (L) 13 - 61 U/L AST (SGOT) 7 (L) 15 - 37 U/L Alk. phosphatase 66 45 - 117 U/L Protein, total 6.9 6.4 - 8.2 g/dL Albumin 2.7 (L) 3.5 - 4.7 g/dL Globulin 4.2 1.7 - 4.7 g/dL A-G Ratio 0.6 (L) 0.7 - 2.8URINALYSIS W/ RFLX MICROSCOPIC Collection Time: 03/11/19 5:10 AMResult Value Ref Range Color YELL OW YEL Appearance CLOUDY (A) CLEAR Specific gravity 1.017 1.003 - 1.030 pH (UA) 8.5 (H) 4.6 - 8.0 Protein TRACE (A) NEG mg/dL Glucose NEGATIVE NEG mg/dL Ketone NEGAT BRITNI NEG mg/dL Bilirubin NEGATIVE NEG Blood NEGATIVE NEG Urobilinogen 1.0 0.2 - 1.0 EU/dL Nitrites NEGATIVE NEG Leukocyte Esterase NEGATIVE NEG WBC 0-3 0 - 5 /hp f RBC 0-3 0 - 2 /hpf Epithelial cells 0- 3 0 - 10 /hpf Bacteria NONE NONE /hpf Casts NO NE NONE /lpf Crystals, urine NONE NONE /LPFBLOOD GAS, ARTERIAL Collection Time: 03/11/19 8:08 AMResult Value Ref Range pH 7.46 (H) 7.35 - 7.45 PCO2 54 (H) 32 - 48 mmHg PO2 86 83 - 108 mmHg CO2, TOTAL 40 (H) 19 - 24 mmol/L BICARBONATE 38 (H) 21 - 2 8 mmol/L O2 SAT 98 94 - 98 % BASE EXCESS 12.3 (H) 0 - 3 mmol/L SITE RIGHT BRACHIAL DEV ICE NONREBREATHER MASK O2 FLOW 12 L/min FIO2 100.0 % Performed by [id number] ACID Co llection Time: 03/11/19 9:30 AMResult Value Ref Range Lactic acid 1.7 0.4 - 2.0 MMOL /LAssessment/Plan:Active Problems: Pneumonia (11/08/2018) Acute respiratory failure w ith hypoxia (HCC) (01/10/2019) Acute Respiratory Failure with Hypercapnia and Hypoxia Presumptive pneumonia- likely Aspiration Leukocytosis COPD Dysphagia;r ecent G/T conversion to a jtube Seizure Hyperparathyroid GERD/ Large hiatal her freddy Parkinsonism Anxiety disorder Severe intellectual disabilities PLAN:Risk of deterioration: []Low [x]Moderate []High1. Admit to teleme try2. Cont O2 NRB mask3. S/p iv vancomycin4. Bipap prn5. Consult pulmonary6. Consult ID7. Iv solu medrol8. nebulizers9. Continue officer captain lamictal, depakote, clorazepate (fawad ax) and sensipar viajtube.10. IV seosdu18.follow up mlqnjapd02 AM cxrProp hylaxis: []Lovenox []Coumadin [x]Hep SQ []SCD's [x]H2B/PPIDisposition: []Home w/ Family []HH PT,OT,RN [x]SNF/LTC []SAH/RehabDiscussed Code Status: [x] Full Code []DNR Care Plan discussed with: []Patient [x]Family []ED Care Manag er [x]ED Doc []Specialist : Pt medical conditon was d/w Mrs Ovalle, pt sister Admitting Physician: Mili Hills DO March 11, 2019 10:24 AM Name Value Range Interpretation Code Description Data Harriett rce(s) Supporting Document(s ) ID Date Data Source [id number] 03/11/2019 11:26:52 AM [facility] Problem: Pressure Injury - Risk ofGoal: *Prevention of pressure injuryDescriptionDocument Butch Scale a nd appropriate interventions in the flowsheet.Outcome: Progressing Towards G oalNote: Pressure Injury Interventions:Sensory Interventions: Ass ess changes in LOC, Avoid rigorous massage over bonyprominences, Check visual cues for pain, Float heels, Keep linens dry andwrinkle-free, Minimize linen layers, Pressure redistribution bed/mattress (bedtype), Pad between skin to skin, Tur n and reposition approx. every two hours(pillows and wedges if needed)Moist ure Interventions: Absorbent underpads, Apply protective barrier, creamsand emollients , Check for incontinence Q2 hours and as needed, Moisture barrier,Minimize layers , Maintain skin hydration (lotion/cream)Activity Interventions: Pr essure redistribution bed/mattress(bed type)Mobility Interventions: Float heels , HOB 30 degrees or less, Pressureredistribution bed/mattress (bed type), Turn and reposition approx. every twohours(pillow and wedges)Nutrition Int erventions: Discuss nutritional consult with providerFriction and Shear Interventions : Apply protective barrier, creams andemollients, Foam dressings/transparen t film/skin sealants, HOB 30 degrees orless, Minimize layers Name Value Range Interpretation Code Description Data Harriett rce(s) Supporting Document(s ) ID Date Data Source [id number] 03/11/2019 10:21:41 AM [facility] Lactic acid obtained sent to lab , trans ferred to floor accompanied by meuneventfully Name Value Range Interpretation Code Description Data Harriett rce(s) Supporting Document(s ) ID Date Data Source [id number]*ENCOUNTER 03/11/2019 09:47:46 AM [facility] [id number] [facility] [address] [facility] [address] [phone]/ Evelio Carlin (Male) [id number] I 3 ED Dispo:ADMIT Chief Complaint: Fever, Cough Diagnosis: Pneumonia of left lower lobe due to infectious organism (HCC) [] Current Providers: Attending: Jenn Neumann; Eloisa Hills Consulting Provider: Eloisa Hills; Nicole Ram Primary Nurse: JO ANN BlandN: [phone] [phone] [employer] [id number] - Bs hsi Ed Medva MrnMRN: [id number] [employer] [phone] - Bshsi Ed Medva Age SexDOB 1950 AGE 68 SEX Male Primary Care Provider: Mili Hills DO Etijeesnl: (No Known Allergi es)Date Reviewed: 02/19/2019Reviewed by: Danny Gerard RN - Review CompleteED Provider Notes: No notes of t his type exist for this encounter.ED Orders 69 SEPSIS BUNDLE INITIATED IN ED [#[id number]] Priority: STAT Class: Hospital Performed Standing Order Information Remaining Occurrences:0/1 Interval:CONTINUOUS Last released:03/11/2019 Released orders: SatMar 11, 2019 3:55 AM by: JESSIE NEUMANN [id number] SEPSIS BUNDLE INITIATED IN ED [#[id number]] Priority: STAT Cl ass: Hospital Performed Released on: 03/11/2019 3:55 AM [id number] CULTURE, BLOOD [# [id number]] Priority: STAT Class: ER Collect Specimen Source: Blood Standing Order Information Remai keith Occurrences:0/1 Interval:NOW Last released:03/11/2019 Released orders : SatMar 11, 2019 3:55 AM by: JESSIE NEUMANN [id number] CULTURE, BLOOD [#[id number]] Priority: STAT Class: ER Collect Specimen Source: Blood Standing Order Informat ion Remaining Occurrences:0/1 Interval:NOW Last released:03/11/2019 Released orders : SatMar 11, 2019 3:55 AM by: JESSIE NEUMANN [id number] CULTURE, BLOOD [#[id number]] Priority: STAT Class: ER Collect Specimen Source: Blood Specimen Collected: 03/11 4:14 AM Resulting Agency: [facility] Test ID: HBCS Released on: 03/11/2019 3:55 AM [id number] CULTURE, BLOOD [#[id number]] Priority: STAT Class: ER Collect Spe cimen Source: Blood Specimen Collected: 03/11/2019 4:14 AM Resulting Agency: [facility] Test ID: HBCS Released on: 03/11/2019 3:55 AM [id number] LACTIC ACID [#[id number]] Priority: STAT Class: ER Collect Standing Order Information Remaining Occurrences:0/2 I nterval:EVERY 4 HRS Last released:03/11/2019 Released orders: SatMar 11, 2019 6:05 AM by: JESSIE NEUMANN SatMar 11, 2019 3:55 AM by: JESSIE NEUMANN [id number] URINALYS IS W/ RFLX MICROSCOPIC [#[id number]] Priority: STAT Class: ER Collect Standing Order Information Remaining Occurrences:0/1 Interval:ONE TIME Last released:03/11/2019 Released orders : SatMar 11, 2019 3:55 AM by: JESSIE NEUMANN [id number] CBC WITH AUTOMATED DIFF [#[id number]] Priority: STAT Class: ER Collect Standing Order Information Remaining Occurre nces:0/1 Interval:ONE TIME Last released:03/11/2019 Released orders: SatMar 11 3:55 AM by: JESSIE NEUMANN [id number] METABOLIC PANEL, COMPREHENSIVE [#[id number]] Yuan ority: STAT Class: ER Collect Standing Order Information Remaining Occurrences:0/1 Inter seema:ONE TIME Last released:03/11/2019 Released orders: SatMar 11, 2019 3:55 AM by: JESSIE ZHENG [id number] LACTIC ACID [#[id number]] Priority: STAT Class: E R Collect Specimen Source: Plasma Specimen Collected: 03/11/2019 4:14 AM Resulting Agency: [facility] Test ID: LAC Released on: 03/11/2019 3:55 AM [id number] URINALYSIS W/ RFLX MICROSCOPIC [#[id number]] Priority: STAT Class: ER Collect Specimen Source: Urine Specimen Collected: 03/11 5:10 AM Resulting Agency: [facility] Test ID: UA Released on: 03/11/2019 3:55 AM [id number] CBC WITH AUTOMATED DIFF [#[id number]] Priority: STAT Class: ER Collect Speci men Source: Whole Blood Specimen Collected: 03/11/2019 4:14 AM Resulting Agency: [facility] Test ID: CBCA Released on: 03/11/2019 3:55 AM [id number] METABOLIC PANEL, COMPREHENSIVE [#[id number]] Priority: STAT Class: ER Collect Specimen Source: Plasma Specimen Collected: 02/14 4:14 AM Resulting Agency: [facility] Test ID: MPL Released on: 03/11/2019 3:55 AM [id number] LACTIC ACID [#[id number]] Canceled Priority: STAT Class: ER Co llect Specimen Collected: 03/11/2019 8:00 AM Resulting Agency: [facility] Test ID: LAC Canceled by SOHAIL OLIVO IN SUNQUEST on SatMar 11, 2019 9:43 AM Reason: Other Comment: DUPLICATE REQUEST Released on: 03/11/2019 6:05 AM [id number] BLOOD GAS, ARTERIAL [# [id number]] Priority: STAT Class: ER Collect Standing Order Information Remaining Occurrences:0 /1 Interval:ONE TIME Last released:03/11/2019 Released orders: SatMar 11, 2019 6:40 AM by: MILI HILLS [id number] BLOOD GAS, ARTERIAL [#[id number]] Priority: STAT Class: ER Collect Released on: 03/11/2019 6:40 AM [id number] BLOOD GAS, ARTERIAL [#[id number]] Priority: Routine Class: ER Collect Resulting Agency: [facility] Test ID: [id number] Standing Order Information Remaining Occurrences:0/1 Released orders: SatMar 11, 2019 8:08 AM by: Automatic Batch Process [id number] BLOOD GAS, ARTERIAL [#[id number]] Priorit y: Routine Class: ER Collect Specimen Source: Arterial Blood Specimen Collected: 03/11/2019 8:08 AM Resulting Agency: [facility] Test ID: [id number] Released on: 03/11/2019 8:08 AM [id number] LACTIC ACID [#[id number]] Priority: STAT Class: ER Collect Standing Orde r Information Remaining Occurrences:0/1 Interval:ONE TIME Last released:03/11/2019 Rel eased orders: SatMar 11, 2019 9:22 AM by: MALOU BLAND [id number] LACTIC ACID [#[id number]] Priority: STAT Class: ER Collect Specimen Collected: 03/11/2019 9:30 AM Alice medina Agency: [facility] Test ID: LAC Released on: 03/11/2019 9:22 AM [id number] BERNY C MONITOR - ED ONLY [#[id number]] Priority: STAT Class: Hospital Performed Standing Order Inf ormation Remaining Occurrences:0/1 Interval:Continuous Last released:03/11/2019 Releas ed orders: SatMar 11, 2019 3:55 AM by: JESSIE NEUMANN Type: -> Bedside [id number] VITAL SIGNS [#[id number]] Priority: Routine Class: Hospital Performed Standing Or bassem Information Remaining Occurrences:0/1 Interval:EVERY HOUR Last released:03/11/2019 Released orders: SatMar 11, 2019 3:55 AM by: JESSIE NEUMANN [id number] STRICT I & O [#[id number]] Priority: Routine Class: Hospital Performed Standing Order Information Remaining Occurrences:0/1 Interval:CONTINUOUS Last released:03/11/2019 Released orders : SatMar 11, 2019 3:55 AM by: JESSIE NEUMANN [id number] NEUROLOGIC STATUS ASSESSMENT [#[id number]] Priority: Routine Class: Hospital Performed Standing Order Information Remainin g Occurrences:0/1 Interval:EVERY HOUR Last released:03/11/2019 Released orders : SatMar 11, 2019 3:55 AM by: JESSIE NEUMANN [id number] PHARMACY SALES REPRESENTATIVE - ED ONLY [#[id number]] Priority: STAT Class: Hospital Performed Type: -> Bedside Released on: 019 3:55 AM [id number] VITAL SIGNS [#[id number]] Priority: STAT Class: H ospital Performed Released on: 03/11/2019 3:55 AM [id number] STRICT I & O [#[id number]] Priority: STAT Class: Hospital Performed Released on: 03/11/2019 3:55 AM [id number] NEUROLOGIC STATUS ASSESSMENT [#[id number]] Priority: STAT Class: Hospital Performed Released on: 03/11 3:55 AM [id number] CARDIAC MONITORING [#[id number]] Priority: STAT Class: H ospital Performed Standing Order Information Remaining Occurrences:0/1 Interval: s 24 Hours Last released:03/11/2019 Released orders: SatMar 11, 2019 6:38 AM by: MILI HILLS Type: -> Bedside [id number] CARDIAC MONITORING [#[id number]] Priority: STAT C lass: Hospital Performed Type: -> Bedside Released on: 03/11/2019 6:38 AM [id number] XR CHEST P ORT [#[id number]] Priority: STAT Class: Hospital Performed Standing Order Inf ormation Remaining Occurrences:0/1 Interval:ONE TIME Last released:03/11/2019 Released orders: SatMar 11, 2019 3:55 AM by: JESSIE NEUMANN Reason for Exam -> Sepsis [id number] XR CHEST PORT [#[id number]] Priority: STAT Class: Hospital Performed Specimen Co llected: 03/11/2019 8:16 AM Resulting Agency: [facility] Test ID: [id number] Reason for Exam -> Sepsis Released on: 03/11/2019 3:55 AM [id number] EKG, 12 LEAD, INITIAL [#[id number]] Priority: STA T Class: Hospital Performed Standing Order Information Remaining Occurrences:0/1 Inter seema:ONE TIME Last released:03/11/2019 Released orders: SatMar 11, 2019 3:55 AM by: JESSIE ZHENG Reason for Exam: - > Sepsis [id number] EKG, 12 LEAD, INITIAL [#[id number]] Priority: STAT Class: Hospital Performed Specimen Collected: 03/11/2019 4:09 AM Resulting Agency: [facility] Test ID: [id number] Reason for Exam: -> Sepsis Released on: 03/11/2019 3:55 AM [id number] SALINE LOCK IV [#[id number]] Priority: STAT Class: Hospital Performed Standing Order Inf ormation Remaining Occurrences:0/1 Interval:ONE TIME Last released:03/11/2019 Released orders: SatMar 11, 2019 3:55 AM by: JESSIE NEUMANN [id number] SALINE LOCK IV [#[id number]] Priority: STAT Class: Hospital Performed Released on: 03/11/2019 3:55 AM SODIUM CHLORIDE 0.9 % IJ SYRG [#[id number]] Priority: STAT Class: Normal ACETAMINOPHEN 3 25 MG TABLET [#[id number]] Priority: STAT Class: Normal METHYLPREDNISOLONE (PF) 40 MG/ML IJ * [#[id number]] Priority: STAT Class: Normal VANCOMYCIN IVPB < 1.5 GM [#[id number]] Priority: STAT Class: Normal Antibiotic Indications -> Pneumonia (HAP) HAP duration of the rapy -> Other Cmt: once SODIUM CHLORIDE 0.9 % IV [#[id number]] Priority: STAT Class: N ormal CON3 IP CONSULT TO FAMILY PRACTICE [#[id number]] Priority: STAT Class: Hospital Performe d Standing Order Information Remaining Occurrences:0/1 Interval:ONE TIME Last released:05/11/2018 Released orders: SatMar 11, 2019 5:58 AM by: JESSIE NEUMANN Reason for Co nsult: -> pneumonia Did you call or speak to the consulting provider? -> No Consult To -> Olivia rivera Schedule When? -> TODAY CON3 IP CONSULT TO FAMILY PRACTICE [#[id number]] Priority: STAT C lass: Hospital Performed Comment:Dr Neumann spoke w Dr Hills Reason for Consult: -> pneumonia D id you call or speak to the consulting provider? -> No Consult To -> Reinier Schedule When? -> TODAY Released on: 03/11/2019 5:58 AM [id number] INITIAL PHYSICIAN ORDER: INPATIENT [#[id number]] Priority: R outine Class: ADT Pend Transfer Standing Order Information Remaining Occurrences: Inter seema:ONE TIME Last released:03/11/2019 Released orders: SatMar 11, 2019 6:38 AM by: MILI SPENCER Status: -> INPATIENT Inpatient Hospitalization Certified Necessary for the Following Re asons -> 3- . P- a- t- i- e- n- t r- e- c- e- i- v- i- n- g t- r- e- a- t- m- e- n- t t- h- a- t c- a- n o- n- l- y b- e p- r- o- v- i- d- e- d i- n a- n i- n- p- a- t- i- e- n- t s- e- t- t- i- n- g (- f- u- r- t- h- e- r c- l- a- r- i- f- i- c- a- t- i- o- n i- n H- &- P d- o- c- u- m- e- n- t- a- t- i- o- n- ) Admitting Diagnosis -> Acute respiratory failure with hypoxia (HCC) -> Pneumonia Admitting Physician -> MILI HILLS Attending Physician -> MILI HILLS Estimated Length of Stay -> 3-4 Midnights Discharge Plan: -> Extended Care Facility (e.g. Adult Home, Detention, etc.) [id number] INITIAL PHYSICIAN ORDER: INPATIENT [#[id number]] Priority: Routine Class : ADT Pend Transfer Status: -> INPATIENT Inpatient Hospitalization Certified Necessary for the Following Reasons -> 3- . P- a- t- i- e- n- t r- e- c- e- i- v- i- n- g t- r- e- a- t- m- e- n- t t- h- a- t c- a- n o- n- l- y b - e p- r- o- v- i- d- e- d i- n a- n i- n- p- a- t- i- e- n- t s- e- t- t- i- n- g (- f- u- r- t- h- e- r c- l- a- r- i- f- i- c- a- t- i- o- n i- n H- &- P d- o- c- u- m- e- n- t- a- t- i- o- n- ) Admitting Diagnosis -> Acute respiratory failure with hypoxia (HCC) -> P neumonia Admitting Physician -> MILI HILLS Attending Physician -> MILI HILLS Length of Stay -> 3-4 Midnights Discharge Plan: -> Extended Care Facility (e.g. Adult Home, Detention, etc.) Released on: 03/11/2019 6:38 AM CON54 IP CONSULT TO PULMONOLOGY [#[id number]] Priority: Routine Class: Hospital Performed Standing Order Information Remainin g Occurrences:0/1 Interval:ONE TIME Last released:03/11/2019 Released orders : SatMar 11, 2019 6:41 AM by: MILI HILLS Reason for Consult: -> acute respiratory failur e Did you call or speak to the consulting provider? -> No Consult To -> Dr Monae Schedule en? -> TODAY CON54 IP CONSULT TO PULMONOLOGY [#[id number]] Priority: Routine Class : Hospital Performed Comment:Dr Monae is aware of pt Reason for Consult: -> acute respiratory failur e Did you call or speak to the consulting provider? -> No Consult To -> Dr Monae Schedule Wh en? -> TODAY Released on: 03/11/2019 6:41 AM [id number] NON-INVASIVE POSITIVE PRESSURE VENTI* [#[id number]] Priority: STAT Class: Hospital Performed Standing Order Information Remaining Occurrences:1 /1 Interval: NEEDED Comment:03/20 ,rate 16 , fio2 100 Type -> Adult/Pediatric Indication for use -> Acute Have the absolute and relative contraindications for NIPPV beenconsidered (hyperlink abov e)? -> Yes Mode -> Continuous Positive Airway Pressure (CPAP)Evelio Carlin#: [id number] * Rm: 346-02Ht: 5' 2" Wt: 135 lb Code: Prior Iso:Diagnosis:Acu te respiratory failure with hypoxia (HCC) [J96.01]Allergies: No Known Allergies -------- Current as of: 03/11/19 0947 GI=Given IC=IV Complet ed NB=New Bag --albuterol-ipratropium (DUO-NEB) 2.5 MG-0.5 MG/3 ML #[id number] Admin Amount: 3 mL Ordered Dose: 3 mL Route: Nebulization Freq: NOW Start Date: 11/07/18 No administration times (back 96 hours, ahead 96 hours). ------methylPREDNISolone (PF) (Solu-MEDROL) injection 125 mg #[id number] Admin Amount: 2 mL = 125 mg of 125 mg/2 mL Ordered Dose: 125 mg Route: Int raVENous Freq: NOW Start Date: 11/07/18 No administration times (back 96 hours, ahe ad 96 hours). ------cefTRIAXone (ROCEPHIN) 1 g in 0.9% sodium chloride (MBP/ADV) 50 m L M*#[id number] Admin Amount: 1 g Ordered Dose: 1 g Route: IntraVENous Freq: NOW Start Date: 11/07/18 Rate: 100 mL/hr Duration: 30 Minutes No administration times (back 96 hours, ahead 96 hours). ------azithromycin (ZITHROMAX) 500 mg in NS 250 mL #[id number] Admin Amount: 250 mL = 500 mg of 500 mg/250 mL Ordered Dose: 500 mg Route: Int raVENous Freq: NOW Start Date: 11/07/18 Rate: 250 mL/hr Duration: 6 0 Minutes No administration times (back 96 hours, ahead 96 hours). ------iopamidol (ISOVUE-370) 76 % injection 100 mL #[id number] Admin Amount: 100 mL Ordered Dose: 100 mL Route: IntraVENous Freq: RAD ONCE Start Date: 11/07/18 No administration times (back 96 hours, ahead 96 hours). ------sodium chloride 0.9 % bolus infusion 500 mL #[id number] Admin Amount: 500 mL Ordered Dose: 500 mL Route: IntraVENo us Freq: ONCE Start Date: 11/08/18 Rate: 666.7 mL/hr Duration: 45 Danielle tasha No administration times (back 96 hours, ahead 96 hours). ------ALPRAZolam (XANAX) tablet 0.25 mg #[id number] Admin Amount: 1 Tab (1 x 0.25 mg Tab) Ordered Dose: 0.25 mg Route: Oral Dg q: DAILY Start Date: 11/08/18 No administration times (back 96 hours, ahead 96 hours).Evelio Garnett MR#: [id number] * Rm: 346-02Ht: 5' 2" Wt: 135 lb Cod e: Prior Iso:Diagnosis:Acute respiratory failure with hypoxia (HCC) [J96.01]Allergies: No Known Allergies -------- Current as of: 03/11/19 0947 GI=Given IC=IV Complet ed NB=New Bag --cefTRIAXone (ROCEPHIN) 1 g in 0.9% sodium chloride (MBP/ADV) 50 mL M*# [id number] Admin Amount: 1 g Ordered Dose: 1 g Route: IntraVENous Freq: EVERY 24 HOURS Start Date: 11/08/18 Rate: 100 mL/hr Duration: 30 Minutes No administration times (back 96 hours, ahead 96 hours). ------azithromycin (ZITHROMAX) 500 mg in 0.9% sodium chloride 250 mL IV PB #[id number] Admin Amount: 500 mg Ordered Dose: 500 mg Route: IntraVENous Freq: EVERY 24 H OURS Start Date: 11/08/18 Rate: 250 mL/hr Duration: 60 Minutes No administration times (back 96 hours, ahead 96 hours). ------LORazepam (ATIVAN) injection 0.5 mg #[id number] Admin Amount: 0.25 mL = 0.5 mg of 2 mg/mL Ordered Dose: 0.5 mg Ro manzanita: IntraVENous Freq: ONCE Start Date: 11/10/18 No administration times (back 96 hours, ahead 96 hours). ------LORazepam (ATIVAN) injection 2 mg #[id number] Admin Amount: 1 mL = 2 mg of 2 mg/mL Ordered Dose: 2 mg Route: Int raVENous Freq: ONCE Start Date: 11/11/18 No administration times (back 96 hours, ahe ad 96 hours). ------LORazepam (ATIVAN) injection 0.5 mg #[id number] Admin Amount: 0.25 mL = 0.5 mg of 2 mg/mL Ordered Dose: 0.5 mg Ro manzanita: IntraVENous Freq: ONCE Start Date: 11/11/18 No administration times (back 96 hours, ahead 96 hours). ------acetaminophen (OFIRMEV) infusion 1,000 mg #[id number] Admin Amount: 100 mL = 1,000 mg of 1,000 mg/100 mL Ordered Dose: 1,000 mg Ro manzanita: IntraVENous Freq: EVERY 6 HOURS Start Date: 11/17/18 Rate: 400 mL/hr Durat ion: 15 Minutes No administration times (back 96 hours, ahead 96 hours). ------HYDROmorphone (DILAUDID) syringe 0.5 mg #[id number] Admin Amount: 0.5 mL = 0.5 mg of 0.5 mg/0.5 mL Ordered Dose: 0.5 mg Route: Int raVENous Freq: EVERY 6 HOURS NEEDED Start Date: 11/17/18 No administration times (back 96 hours, ahe ad 96 hours).Evelio Carlin MR#: [id number] * Rm: 346-02Ht: 5' 2" Wt: 1 35 lb Code: Prior Iso:Diagnosis:Acute respiratory failure with hypoxia (HCC) [J96.01]Aller gies: No Known Allergies -------- Current as of: 03/11/19 0947 GI=Given IC=IV Complet ed NB=New Bag --acetaminophen (OFIRMEV) infusion 1,000 mg #[id number] Admin Amount: 100 mL = 1,000 mg of 1,000 mg/100 mL Ordered Dose: 1,000 mg Ro manzanita: IntraVENous Freq: EVERY 6 HOURS Start Date: 11/18/18 Rate: 400 mL/hr Durat ion: 15 Minutes No administration times (back 96 hours, ahead 96 hours). ------piperacillin-tazobactam (ZOSYN) 3.375 g in 0.9% sodium chloride (MBP*#[id number] Admin Amount: 3.375 g Ordered Dose: 3.375 g Route: IntraVENous Freq: EVERY 8 HOURS Start Date: 11/18/18 Rate: 25 mL/hr Duration: 240 Minutes No administrati on times (back 96 hours, ahead 96 hours). ------potassium chloride 10 mEq in 100 ml IVPB #[id number] Admin Amount: 100 mL = 10 mEq of 10 mEq/100 mL Ordered Dose: 10 mEq Route: Int raVENous Freq: EVERY 1 HOUR Start Date: 11/19/18 Rate: 100 mL/hr Duration: 6 0 Minutes No administration times (back 96 hours, ahead 96 hours). ------diatrizoate tiffani-diatrizoat sod (RUTHYGASTROVIEW,GASTRO GRAFIN) 66-10 % *#[id number] Admin Amount: 30 mL Ordered Dose: 30 mL Route: Oral Freq: RAD O NCE Start Date: 11/19/18 No administration times (back 96 hours, ahead 96 hours). ------acetaminophen (OFIRMEV) infusion 1,000 mg #[id number] Admin Amount: 100 mL = 1,000 mg of 1,000 mg/100 mL Ordered Dose: 1,000 mg Ro manzanita: IntraVENous Freq: EVERY 6 HOURS Start Date: 11/21/18 Rate: 400 mL/hr Durat ion: 15 Minutes No administration times (back 96 hours, ahead 96 hours). ------acetaminophen (OFIRMEV) infusion 1,000 mg #[id number] Admin Amount: 100 mL = 1,000 mg of 1,000 mg/100 mL Ordered Dose: 1,000 mg Ro manzanita: IntraVENous Freq: EVERY 6 HOURS Start Date: 11/22/18 Rate: 400 mL/hr Durat ion: 15 Minutes No administration times (back 96 hours, ahead 96 hours). ------LORazepam (ATIVAN) tablet 0.5 mg #[id number] Admin Amount: 1 Tab (1 x 0.5 mg Tab) Ordered Dose: 0.5 mg Route: Per G Tube F req: EVERY BEDTIME Start Date: 11/23/18 No administration times (back 96 hours, ahead 96 hours).Evelio Garnett MR#: [id number] * Rm: 346-02Ht: 5' 2" Wt: 135 lb Cod e: Prior Iso:Diagnosis:Acute respiratory failure with hypoxia ([facility]) [J96.01]Allergies: No Known Allergies -------- Current as of: 03/11/19 0947 GI=Given IC=IV Complet ed NB=New Bag --vancomycin (VANCOCIN) 1,250 mg in 0.9% sodium chloride 250 mL IVPB #[id number] Admin Amount: 1,250 mg Ordered Dose: 1,250 mg Route: IntraVENous Freq: EVERY 12 HO URS Start Date: 11/24/18 Rate: 125 mL/hr Duration: 120 Minutes No administration times (back 96 hours, ahead 96 hours). ------potassium chloride (KLOR-CON) packet for solution 20 mEq #[id number] Admin Amount: 1 Packet (1 x 20 mEq Packet) Ordered Dose: 20 mEq Ro manzanita: Oral Freq: 2 TIMES DAILY WITH MEALS Start Date: 11/25/18 No administration times (back 96 hours, ahe ad 96 hours). ------piperacillin-tazobactam (ZOSYN) 3.375 g in 0.9% sodium chloride (MBP*#[id number] Admin Amount: 3.375 g Ordered Dose: 3.375 g Route: IntraVENous Freq: NOW Start Date: 12/12/18 Rate: 200 mL/hr Duration: 30 Minutes No administrati on times (back 96 hours, ahead 96 hours). ------albuterol-ipratropium (DUO-NEB) 2.5 MG-0.5 MG/3 ML #[id number] Admin Amount: 3 mL Ordered Dose: 3 mL Route: Nebulization Freq: NOW Start Date: 12/12/18 No administration times (back 96 hours, ahead 96 hours). ------methylPREDNISolone (PF) (Solu-MEDROL) injection 125 mg #[id number] Admin Amount: 2 mL = 125 mg of 125 mg/2 mL Ordered Dose: 125 mg Route: Int raVENous Freq: NOW Start Date: 12/12/18 No administration times (back 96 hours, ahe ad 96 hours). ------albuterol-ipratropium (DUO-NEB) 2.5 MG-0.5 MG/3 ML #[id number] Admin Amount: 3 mL Ordered Dose: 3 mL Route: Nebulization Freq: NOW Start Date: 12/12/18 No administration times (back 96 hours, ahead 96 hours). ------albuterol-ipratropium (DUO-NEB) 2.5 MG-0.5 MG/3 ML #[id number] Admin Amount: 3 mL Ordered Dose: 3 mL Route: Nebulization Freq: NOW Start Date: 12/12/18 No administration times (back 96 hours, ahead 96 hours).Ivelisse Carlin MR#: [id number] * Rm: 346-02Ht: 5' 2" Wt: 135 lb Code: Prior Iso:Diagnosis:Acute respiratory failure with hypoxia ([facility]) [J96.01]Allergies: No Known Allergies -------- Current as of: 03/11/19 0947 GI=Given IC=IV Complet ed NB=New Bag -- Followed by [facility] (Order count: 2)sodium chloride 0.9 % jeff aspen infusion 1,000 mL #[id number] Admin Amount: 1,000 mL Ordered Dose: 1,000 mL Route: IntraVENous Freq: ONCE Start Date: 12/12/18 No administration times ( back 96 hours, ahead 96 hours). - Followed by - - - - - - - - - - - - - - - - - - - - - - - - - - - - - - - -s odium chloride 0.9 % bolus infusion 593 mL #[id number] Admin Amount: 593 mL Ordere d Dose: 593 mL Route: IntraVENous Freq: ONCE Start Date: 12/12/18 No adm inistration times (back 96 hours, ahead 96 hours). ------iopamidol (ISOVUE-370) 76 % injection 125 mL #[id number] Admin Amount: 125 mL Ordered Dose: 125 mL Route: IntraVENous Freq: RAD ONCE Start Date: 12/17/18 No administration times (back 96 hours, ahead 96 hours). ------lidocaine (XYLOCAINE) 20 mg/mL (2 %) injection 100 mg #[id number] Admin Amount: 5 mL = 100 mg of 2,000 mg/100 mL Ordered Dose: 5 mL Route: IntraDERMal Freq: ONCE Start Date: 12/19/18 No administration times (b ack 96 hours, ahead 96 hours). ------oxyCODONE-acetaminophen (PERCOCET) 5-325 mg per tablet 1 Tab #[id number] Admin Amount: 1 Tab Ordered Dose: 1 Tab Route: Oral Freq: EVERY 8 HOURS NEEDED Start Date: 12/19/18 No administration times (back 96 hours, ahead 96 hours). ------furosemide (LASIX) injection 20 mg #[id number] Admin Amount: 2 mL = 20 mg of 10 mg/mL Ordered Dose: 20 mg Ro manzanita: IntraVENous Freq: ONCE Start Date: 12/26/18 No administration times (back 96 hours, ahead 96 hours). ------furosemide (LASIX) injection 20 mg #[id number] Admin Amount: 2 mL = 20 mg of 10 mg/mL Ordered Dose: 20 mg Route: Int raVENous Freq: ONCE Start Date: 12/29/18 No administration times (back 96 hours, ahe ad 96 hours).Evelio Carlin MR#: [id number] * Rm: 346-02Ht: 5' 2" Wt: 1 35 lb Code: Prior Iso:Diagnosis:Acute respiratory failure with hypoxia (HCC) [J96.01]Aller gies: No Known Allergies -------- Current as of: 03/11/19 0947 GI=Given IC=IV Complet ed NB=New Bag --albuterol-ipratropium (DUO-NEB) 2.5 MG-0.5 MG/3 ML #[id number] Admin Amount: 3 mL Ordered Dose: 3 mL Route: Nebulization Freq: NOW Start Date: 01/10/19 No administration times (back 96 hours, ahead 96 hours). ------methylPREDNISolone (PF) (Solu-MEDROL) injection 125 mg #[id number] Admin Amount: 2 mL = 125 mg of 125 mg/2 mL Ordered Dose: 125 mg Route: Int raVENous Freq: NOW Start Date: 01/10/19 No administration times (back 96 hours, e ad 96 hours). ------albuterol-ipratropium (DUO-NEB) 2.5 MG-0.5 MG/3 ML #[id number] Admin Amount: 3 mL Ordered Dose: 3 mL Route: Nebulization Freq: NOW Start Date: 01/10/19 No administration times (back 96 hours, ahead 96 hours). ------acetaminophen (TYLENOL) tablet 650 mg #[id number] Admin Amount: 2 Tab (2 x 325 mg Tab) Ordered Dose: 650 mg Route: Per G Tub e Freq: NOW Start Date: 01/10/19 No administration times (back 96 hours, e ad 96 hours). ------piperacillin-tazobactam (ZOSYN) injection 3.375 g #[id number] Admin Amount: 3.375 g Ordered Dose: 3.375 g Route: IntraVENous Freq: NOW Start Date: 01/10/19 No administration times (back 96 hours, ahead 96 hours). ------vancomycin (VANCOCIN) 1,000 mg in 0.9% sodium chloride 250 mL IVPB #[id number] Admin Amount: 1,000 mg Ordered Dose: 1,000 mg Route: IntraVENous Freq: ONCE Start Date: 01/10/19 Rate: 125 mL/hr Duration: 120 Minutes No administ ration times (back 96 hours, ahead 96 hours). ------ Followed by Linked [facility] (Order count: 2)sodium chloride 0. 9 % bolus infusion 1,000 mL #[id number] Admin Amount: 1,000 mL Ordered Dose: 1,000 mL Route: IntraVENous Freq: ONCE Start Date: 01/10/19 No administration t imes (back 96 hours, ahead 96 hours).Evelio Carlin MR#: [id number] * Rm: 34 09-14Ht: 5' 2" Wt: 135 lb Code: Prior Iso:Diagnosis:Acute respiratory failure with hypoxia ([facility]) [J96.01]Allergies: No Known Allergies -------- Current as of: 03/11/19 0947 GI=Given IC=IV Complet ed NB=New Bag - Followed by - - - - - - - - - - - - - - - - - - - - - - - - - - - - - - - -sodium chloride 0 .9 % bolus infusion 551 mL #[id number] Admin Amount: 551 mL Ordered Dose: 551 mL Route: IntraVENous Freq: ONCE Start Date: 01/10/19 No administration t imes (back 96 hours, ahead 96 hours). ------0.9% sodium chloride (MBP/ADV) infusion #[id number] Ordered Dose: Route: Freq: Start Date: No administration times (back 96 hours, ahead 96 hours). ------influenza vaccine (65 yrs+)(PF) (FLUZONE HIGH-DOSE) inject io*#[id number] Admin Amount: 0.5 mL Ordered Dose: 0.5 mL Route: IntraMUSCular Freq: PRIOR TO DISCHARGE Start Date: 01/10/19 No administration times (back 96 hours, ahead 96 hours). ------piperacillin-tazobactam (ZOSYN) 3.375 g in 0.9% sodium chloride ([facility]*#[id number] Admin Amount: 3.375 g Ordered Dose: 3.375 g Route: IntraVENous Freq: EVERY 8 HOURS Start Date: 01/10/19 Rate: 25 mL/hr Duration: 240 Minutes No administrat ion times (back 96 hours, ahead 96 hours). ------potassium, sodium phosphates (NEUTRA-PHOS) packet 1 Packet #[id number] Admin Amount: 1 Packet Ordered Dose: 1 Packet Route: Per G Tube Freq: 4 TIMES DAILY Start Date: 01/12/19 No administration times (back 96 hours, ahead 96 hours). ------iopamidol (ISOVUE 300) 61 % contrast injection 100 mL #[id number] Admin Amount: 100 mL Ordered Dose: 100 mL Route: IntraVENous Freq: RAD ONCE Start Date: 01/15/19 No administration times (back 96 hours, ahead 96 hours). ------sodium phosphate 15 mmol in 0.9% sodium chlorid e 250 mL infusion #[id number] Ordered Dose: Route: IntraVENous Freq: ONCE Start Date: 01/20/19 Rate: 63.8 mL/hr Duration: 4 Hours No administration patria es (back 96 hours, ahead 96 hours).Evelio Carlin MR#: [id number] * Rm: 34 602Ht: 5' 2" Wt: 135 lb Code: Prior Iso:Diagnosis:Acute respiratory failure with hypoxia ([facility]) [J96.01]Allergies: No Known Allergies -------- Current as of: 03/11/19 0947 GI=Given IC=IV Complet ed NB=New Bag --acetaZOLAMIDE SR (DIAMOX) capsule 500 mg #[id number] Admin Amount: 1 Cap (1 x 500 mg Cap) Ordered Dose: 500 mg Route: Oral Freq: O NCE Start Date: 01/23/19 No administration times (back 96 hours, ahead 96 hours). ------albuterol (PROVENTIL VENTOLIN) nebulizer solution 2.5 mg #[id number] Admin Amount: 3 mL = 2.5 mg of 2.5 mg/3 mL Ordered Dose: 2.5 mg Route: Neb ulization Freq: NOW Start Date: 02/08/19 No administration times (back 96 hours, ahe ad 96 hours). ------albuterol (PROVENTIL VENTOLIN) nebulizer solution 2.5 mg #[id number] Admin Amount: 3 mL = 2.5 mg of 2.5 mg/3 mL Ordered Dose: 2.5 mg Route: Neb ulization Freq: NOW Start Date: 02/08/19 No administration times (back 96 hours, ahe ad 96 hours). ------ Followed by Luis Armando Magana (Order count: 2)sodium chloride 0. 9 % bolus infusion 1,000 mL #[id number] Admin Amount: 1,000 mL Ordered Dose: 1,000 mL Route: IntraVENous Freq: ONCE Start Date: 02/08/19 No administration times (back 96 hours, ahead 96 hours). - Followed by - - - - - - - - - - - - - - - - - - - - - - - - - - - - - - - -sodium chloride 0.9 % bolus infusion 701 mL #[id number] Admin Amount: 701 mL Orde red Dose: 701 mL Route: IntraVENous Freq: ONCE Start Date: 02/08/19 No administration times (back 96 hours, ahead 96 hours). ------cefepime (MAXIPIME) 2 g in 0.9% sodium chloride (MBP/ADV) 100 mL MBP #[id number] Admin Amount: 2 g Ordered Dose: 2 g Route: IntraVENous Freq: NOW Start Date: 02/08/19 Rate: 200 mL/hr Duration: 30 Minutes No administration times (back 96 hours, ahead 96 hours). ------vancomycin (VANCOCIN) 1,000 mg in 0.9% sodium chloride 250 mL IVPB #[id number] Admin Amount: 1,000 mg Ordered Dose: 1,000 mg Route: IntraVENous Freq: ONCE Start Date: 02/08/19 Rate: 125 mL/hr Duration: 120 Minutes No adminis tration times (back 96 hours, ahead 96 hours).Evelio Carlin MR#: [id number] * Rm: 346-02Ht: 5' 2" Wt: 135 lb Code: Prior Iso:Diagnosis:Acute respiratory failure with hypoxia ([facility]) [J96.01]Allergies: No Known Allergies -------- Current as of: 03/11/19 0947 GI=Given IC=IV Complet ed NB=New Bag --ALPRAZolam (XANAX) tablet 0.25 mg #[id number] Admin Amount: 1 Tab (1 x 0.25 mg Tab) Ordered Dose: 0.25 mg Route: Per G Tub e Freq: 4 TIMES DAILY NEEDED Start Date: 02/08/19 No administration times (back 96 hours, e ad 96 hours). ------cefepime (MAXIPIME) 2 g in 0.9% sodium chloride (MBP/ADV) 100 mL MBP #[id number] Admin Amount: 2 g Ordered Dose: 2 g Route: IntraVENous Freq: EVERY 8 HOUR S Start Date: 02/09/19 Rate: 200 mL/hr Duration: 30 Minutes No administration times (back 96 hours, ahead 96 hours). ------ALPRAZolam (XANAX) tablet 0.25 mg #[id number] Admin Amount: 1 Tab (1 x 0.25 mg Tab) Ordered Dose: 0.25 mg Route: Per G Tub e Freq: 4 TIMES DAILY NEEDED Start Date: 02/14/19 No administration times (back 96 hours, e ad 96 hours). ------propofol (DIPRIVAN) 10 mg/mL injection #[id number] Ordered Dose: Route: Freq: Start Date: 02/16/19 No administration times (back 96 hours, ahead 96 hours). ------midazolam (PF) (VERSED) 1 mg/mL injection #[id number] Ordered Dose: Route: Freq: Start Date: 9 No administration times (back 96 hours, ahead 96 hours). ------albuterol (PROVENTIL VENTOLIN) 2.5 mg /3 mL (0.083 %) nebuliz er river*#[id number] Ordered Dose: Route: Freq: Start Date: 04/18/18 No administration times (back 96 hours, ahead 96 hours). ------albuterol (PROVENTIL VENTOLIN) nebulizer solution 2.5 mg #[id number] Admin Amount: 3 mL = 2.5 mg of 2.5 mg/3 mL Ordered Dose: 2.5 mg Route: Inh alation Freq: NEEDED Start Date: 02/16/19 No administration times (back 96 hours, ahe ad 96 hours). ------ePHEDrine (MISTOLE) 50 mg/mL injection #[id number] Ordered Dose: Route: Freq: Start Date: 02/16/19 No administration times (back 96 hours, ahead 96 hours).Evelio Carlin MR#: [id number] * Rm: 346-02Ht: 5' 2" Wt: 135 lb Code: Prior Iso:Diagnosis:Ac manzanita respiratory failure with hypoxia (HCC) [J96.01]Allergies: No Known Allergies -------- Current as of: 03/11/19 0947 GI=Given IC=IV Complet ed NB=New Bag --propofol (DIPRIVAN) 10 mg/mL injection #[id number] Ordered Dose: Route: Freq: Start Date: 02/17/19 No administration times (back 96 hours, ahead 96 hours). ------fentaNYL citrate (PF) 50 mcg/mL injection #[id number] Ordered Dose: Route: Freq: Start Date: No administration times (back 96 hours, ahead 96 hours). ------midazolam (PF) (VERSED) 1 mg/mL injection #[id number] Ordered Dose: Route: Freq: Start Date: 9 No administration times (back 96 hours, ahead 96 hours). ------sodium chloride (NS) flush 5-10 mL #[id number] Admin Amount: 5-10 mL Ordered Dose: 5-10 mL Route: IntraVENous Freq: NE EDED Start Date: 03/11/19 No administration times (back 96 hours, ahead 96 hours). ------acetaminophen (TYLENOL) tablet 975 mg #[id number] Admin Amount: 3 Tab (3 x 325 mg Tab) Ordered Dose: 975 mg Route: Oral Dg q: NOW Start Date: 03/11/19 Administration times (back 96 hours, ahead 96 hours): 03/11/19: 0650GI -----methylPREDNISolone (PF) (SOLU-MEDROL) injection 40 mg #[id number] Admin Amount: 1 mL = 40 mg of 40 mg/mL Ordered Dose: 40 mg Route: IntraVENo us Freq: EVERY 6 HOURS Start Date: 03/11/19 Administration times (back 96 hours, ahe ad 96 hours): 03/11/19: 0652GI 119903/12/19: 59903/13/19: 59903/14/19: 59903/15/19: 599 ---vancomycin (VANCOCIN) 1,000 mg in 0.9% sodium chloride 250 mL IVPB #[id number] Admin Amount: 1,000 mg Ordered Dose: 1,000 mg Route: IntraVENous Freq: ONCE Start Date: 03/11/19 Rate: 125 mL/hr Duration: 120 Minutes Administration t imes (back 96 hours, ahead 96 hours): 03/11/19: 0729NB 0917Eevlio Radford#: [id number] * Rm: 346-02Ht: 5' 2" Wt: 135 lb Code: Prior Iso:Diagnosis:Acu te respiratory failure with hypoxia (HCC) [J96.01]Allergies: No Known Allergies -------- Current as of: 03/11/19 0947 GI=Given IC=IV Complet ed NB=New Bag --0.9% sodium chloride infusion # [id number] Ordered Dose: 70 mL/hr Route: IntraVENous Freq: CONTINUOUS Start D ate: 03/11/19 Rate: 70 mL/hr Duration: Administration times (back 96 hours, ahe ad 96 hours): 03/11/19: 0650NB ED Current OP Medicationscefepime 2 gram 2 g IVPBSi g by IntraVENous route every eight (8) hours.Dispense Amount:10 DoseStart Date:02/12/2019End Date:Doc. P rovider: Christos Lopez MDheparin sodium,porcine (HEPARIN, PORCINE,) 5,000 unit/mL injectionSi mL by SubCU TAneous route every twelve (12) hours every twelve (12) hours.Dispense Amount:10 mLStart Date:02/12/2019End Pan e:Doc. Provider: Christos Lopez MDpantoprazole (PROTONIX) 40 mg granules for oral suspensionSi mg by Per NG tube route Daily (before breakfast).Dispense Amount:30 EachStart Date:02/13/2019End Date:Doc. Pr ovider: Christos Lopez MDpredniSONE (DELTASONE) 10 mg tabletSig:Take 20 mg by mouth daily.Dispense Amount:3 T abStart Date:02/12/2019End Date:Doc. Provider: Christos Lopez MDpredniSONE (DELTASONE) 10 mg tabletSig :Take 10 mg by mouth daily (with breakfast).Dispense Amount:3 TabStart Date:02/12/2019End Date:Doc. Provider: Christos Wagner MDmultivitamin (MULTI- DELYN, WELLESSE) liqdSi mL by Per G Tube route daily.Dispense Amount:S tart Date:End Date:Doc. Provider: Provider, Edievalproic acid, as sodium salt, (DEPAKENE) 250 mg/5 mL (5 m L) soln oral solutionSi mg by Per G Tube route every twelve (12) hours.Dispense Amount:Start Date:End Pan e:Doc. Provider: Edie Floresacetylcysteine (MUCOMYST) 100 mg/mL (10 %) nebulizer solutionSig:Take 4 mL by inhalation two (2) times a day.Dispense Amount:Start Date:End Date:Doc. Provider: Provider, Edie zinc oxide 10 % topical creamSig:Apply to affected area daily. Ribbon around GT siteDispense Amount:Start Date :End Date:Doc. Provider: Edie Floresomeprazole (PRILOSEC) 2 mg/mL susp 2 mg/mL oral suspension (comp ounded)Si mg by Per G Tube route daily.Dispense Amount:Start Date:End Date:Doc. Provider: Cindi Flores istoricalsilver sulfADIAZINE (SILVADENE) 1 % topical creamSig:Apply to affected area two (2) times a day. 1 inc h ribbon- right shinDispense Amount:Start Date:End Date:Doc. Provider: Edie Floresacetaminophen (TYLEN OL) 32MG/ML soln solutionSig:Take 20.3 mL by mouth every four (4) hours as needed for Pain or Fever.Dispense [place] unt:250 mLStart Date:01/24/2019End Date:Doc. Provider: Mili Hills DOinfluenza vaccine 2019-, 65 yrs+,,PF , (FLUZONE HIGH-DOSE) syrg injectionSi.5 mL by IntraMUSCular route PRIOR TO DISCHARGE.Dispense Amount:1 Syr ingeStart Date:01/24/2019End Date:Doc. Provider: Mili Hills DOcholestyramine-aspartame (QUESTRAN LIG HT) 4 gram packetSig:Take 1 Packet by mouth two (2) times a day.Patient taking differently: 4 g two (2) times a day. Via G tube.Dispense Amount:60 PacketStart Date:01/24/2019End Date:Doc. Provider: Mili Hills DOc lorazepate (TRANXENE) 3.75 mg tabletSi Tab by Per G Tube route nightly. Max Daily Amount: 3.75 mg.Dispe nse Amount:30 TabStart Date:12/30/2018End Date:Doc. Provider: Mili Hills DOcinacalcet (SENSIPAR) 30 mg t abletSig:Take 2 Tabs by mouth daily.Patient taking differently: 60 mg daily. Via G tubeDispense Amount:60 TabS tart Date:12/30/2018End Date:Doc. Provider: Mili Hills DOlamoTRIgine (LAMICTAL) 25 mg tabletSig :2 Tabs by Per G Tube route two (2) times a day.Dispense Amount:60 TabStart Date:12/30/2018End Date:Doc. Pro vider: Mili Hills DOalbuterol- ipratropium (DUO-NEB) 2.5 mg-0.5 mg/3 ml nebuSi mL by Nebulization rou te every six (6) hours. Every 6 hours while awakeDispense Amount:30 NebuleStart Date:12/30/2018End Date:Doc. Provider: Mili Hills DObudesonide (PULMICORT) 0.5 mg/2 mL nbspSi mL by Nebulization route two ( 2) times a day.Dispense Amount:60 EachStart Date:12/30/2018End Date:Doc. Provider: Mili Hills DObacitracin 500 unit/gram ointmentSig:Apply 1 Packet to affected area two (2) times a day. Indications: minor skin infect ion due to bacteria, facial scabsDispense Amount:20 PacketStart Date:12/30/2018End Date:Doc. Provider: Mili Dawn DO ED Prescriptions None on FileF ollow-up InformationNone Name Value Range Interpretation Code Description Data Harriett rce(s) Supporting Document(s ) ID Date Data Source [id number] 03/11/2019 10:07:55 AM [facility] Name Value Range Interpretation Description Data Sup porting Code Source(s) Document(s ) Lactate 1.7 0.4-2.0 [facility] [Moles/volu MMOL/L [facility]] in Hospital Serum or Plasma ID Date Data Source [id number] 03/11/2019 09:20:28 AM [facility] TRANSFER - OUT REPORT:Verbal report give n to Shira PITTS(name) [facility] ro utine progression of careReport consisted of patient's Situation, Background, Assessm ent andRecommendations(SBAR).Information from the following report(s) SBAR, Kardex, ED Summary and MAR wasreviewed with the receiving nurse.Lines:Peripheral IV 02/14 10/31 Right Hand (Active)Site Assessment Clean, dry, & intact 03/11/2019 4:06 AM Phlebitis Assessment 0 03/11/2019 4:06 AMInfiltration Assessment 0 03/11/2019 4:06 AMDressing Status Clean, dry, & intact 03/11/2019 4:06 AMDressing Type Transpa rent 03/11/2019 4:06 AMHub Color/Line Status [place] 03/11/2019 4:06 AMAlcohol Cap Used Yes 03/11/2019 4:06 AMOpportunity for questions and clarification was provided .Patient transported with: [employer] Name Value Range Interpretation Code Description Data Harriett rce(s) Supporting Document(s ) ID Date Data Source [id number] 03/11/2019 09:15:57 AM [facility] assumed care 0700 on stretcher , MR - al ert , no words , following occasionalcommands . Audible rhonchi heard , NRB in place A BG completed on 100% NRB . DrGill made aware of patient's assessment , and ABG result s this am . CPAP orderedPRN if distress should occur . At present comfortable , moving secretions .Large BM - skin care given . Contracted bilat LE . Skin with faint redness , toleft malleolus pressures relief provided . NSR - ST on monitoring tech . Completed IV Vancomycin first dose no adverse reaction . Pending admission forcontinue d care . Name Value Range Interpretation Code Description Data [facility] rce(s) Supporting Document(s ) ID Date Data Source [id number] 03/11/2019 08:18:05 AM [facility] CHEST one viewHISTORY: Fever. COPD. Refl ux.COMPARISON: 02/12/2019.An additional view was obtained.A tubular structure overlie s the stomach and midabdomen with some gastricdistention and elevation of the l eft hemidiaphragm.There is a poor inspiratory effort which compromises this interpreta tion. Arepeat study is suggested. .There is no gross evidence of congestion, infiltr ates, effusions orpneumothorax. Old rib fractures are noted.IMPRESSION: No evide nce of acute cardiopulmonary disease. Poor inspiratoryeffort. Gastric distention. S igning date/time: 03/11/2019 8:18 AMSigned by: LIONEL LOCKHART Name Value Range Interpretation Code Description Data Harriett rce(s) Supporting Document(s ) ID Date Data Source [id number] 03/11/2019 08:09:39 AM EST [facility] Name Value Range Interpretation Description Data Sup porting Code Source(s) Document(s ) pH of Arterial 7.46 7.35-7.4 Above high normal [facility] blood 5 [facility] Carbon dioxide 54 mmHg 32-48 Above high normal [facility] Good [Partial Taoist pressure] in Hospital Arterial blood Oxygen 86 mmHg 83-108 [facility] - Good [Partial Taoist pressure] in Hospital Arterial blood Carbon 40 19-24 Above high normal [facility] dioxide, total mmol/L [facility] [Moles/volume] Hospital in Arterial blood Bicarbonate 38 21-28 Above high normal [facility] - od [Moles/volume] mmol/L [facility] in Arterial Hospital blood Oxygen 98 % 94-98 [facility] saturation in [facility] Base excess in 12.3 0-3 Above high normal [facility] Arterial blood mmol/L [facility] by calculation Hospital Body site [facility] NONREBREATHER MASK12 Oxygen/Inspired gas Respiratory system 100.0 % [facility] --on ventilator Service comment [id number] [facility] ID Date Data Source [id number] 03/11/2019 08:07:29 AM [facility] Bedside and Verbal shift change report carol Pollard (oncoming nurse) Yannick (offgoing nurse). Report included the fo llowing information SBAR, EDSummary, MAR and Recent Results. Name Value Range Interpretation Code Description Data Harriett rce(s) Supporting Document(s ) ID Date Data Source [id number] 03/11/2019 07:53:27 AM [facility] J-tube in place. Inserted 02/17/19 accord ing to EMS Name Value Range Interpretation Code Description Data Harriett rce(s) Supporting Document(s ) ID Date Data Source [id number] 03/11/2019 05:52:39 AM EST [facility] Name Value Range Interpretation Description Data Sup porting Code Source(s) Document(s ) Color of Urine YEL [facility] Appearance of CLEAR Abnormal (applies [facility] - Urine to non-numeric Good results) [facility] Specific gravity 1.017 1.003-1. [facility] - of Urine by 030 Good Refractometry [facility] pH of Urine by 8.5 4.6-8.0 Above high normal [facility] - Test strip Good [facility] Protein NEG Abnormal (applies [facility] - [Mass/volume] in to non-numeric Good Urine by Test results) [facility] Glucose NEG [facility] - [Mass/volume] in Good Urine by Taoist Automated test [facility] strip Ketones NEG [facility] - [Presence] in Good Urine by [facility] strip Bilirubin.total NEG [facility] - [Presence] in Good Urine [facility] Hemoglobin NEG [facility] - [Presence] in Good Urine by Test [facility] Urobilinogen 1.0 0.2-1.0 [facility] - [Presence] in EU/dL Good Urine by Taoist Automated test [facility] strip Nitrite NEG [facility] - [Presence] in Good Urine by Taoist Automated test Hospital strip Leukocyte NEG [facility] - esterase Good [Presence] in Taoist Urine by Hospital Automated test strip Leukocytes 0-5 [facility] - [Presence] in Good Urine sediment Taoist by [facility] microscopy Erythrocytes 0-2 [facility] - [#/area] in Good Urine sediment Taoist by [facility] high power field Epithelial cells 0-10 [facility] - [#/area] in Good Urine sediment Taoist by [facility] high power field Bacteria NONE [facility] - [Presence] in Good Urine sediment Taoist by [facility] microscopy Casts [Presence] NONE [facility] - in Urine Good sediment by [facility] Hospital Crystals NONE [facility] - [Presence] in Good Urine sediment Taoist by [facility] microscopy ID Date Data Source [id number] 03/16/2019 06:31:57 AM EST [facility] Name Value Range Interpretation Description Data Sup porting Code Source(s) Document(s ) Service comment [facility] Bacteria [facility] - Good identified [facility] specimen by Culture ID Date Data Source [id number] 03/16/2019 06:31:55 AM EST [facility] Name Value Range Interpretation Description Data Sup porting Code Source(s) Document(s ) Service comment [facility] Bacteria [facility] - Good identified in [facility] specimen by Culture ID Date Data Source [id number] 03/11/2019 04:57:02 AM [facility] Name Value Range Interpretation Description Data Sup porting Code Source(s) Document(s ) Lactate 1.6 0.4-2.0 [facility] Good [Moles/volu MMOL/L [facility]] in Hospital Serum or Plasma ID Date Data Source [id number] 03/11/2019 04:54:18 AM [facility] Name Value Range Interpretation Description Data Sup porting Code Source(s) Document(s ) Sodium 132 136-145 Below low normal [facility] - Good [Moles/volume] mmol/L Taoist in Serum or Hospital Plasma Potassium 3.9 3.5-5.1 [facility] - Good [Moles/volume] mmol/L [facility]ist in Serum or Hospital Plasma Chloride 92 98-107 Below low normal [facility] - Good [Moles/volume] mmol/L [facility] in Serum or Hospital Plasma Carbon 40 21-32 Above high normal [facility] - Good dioxide, total mmol/L Taoist [Moles/volume] Hospital in Serum or Plasma Anion gap in 4 mmol/L 10-20 Below low normal [facility] - Go od Serum or Taoist Plasma Hospital Glucose 94 mg/dL 74-106 [facility] - Good [Mass/volume] Taoist in Serum or Hospital Plasma Urea nitrogen 11 mg/dL 7-18 [facility] - Good [Mass/volume] Taoist in Serum or Hospital Plasma Creatinine 0.47 0.70-1.3 Below low normal [facility] - Good [Mass/volume] mg/dL 0 Taoist in Serum or Hospital Plasma Glomerular >60 [facility] - Good filtration Taoist rate/1.73 sq M Hospital predicted among blacks [Volume Rate/Area] in Serum or Plasma by Creatinine-bas ed formula (MDRD) Glomerular >60 [facility] - Good filtration Taoist rate/1.73 sq M Hospital predicted among non-blacks [Volume Rate/Area] in Serum or Plasma by Creatinine-bas ed formula (MDRD) (NOTE)Estimated GFR is calculated using the Modification of Diet in RenalDisease (MDRD) Study equation, reported for both Americans(GFRAA) and non- Americans (GFRNA), and normalized to 1.7 7d1jtwj surface area. The physician must decide which value applies tothe patient . The MDRD study equation should only be used inindividuals age 18 or older. It has no t been validated for thefollowing: women, patients with serious comorbid co nditions,or on certain medications, or persons with extremes of body size,muscl e mass, or nutritional status. Calcium [Mass/volume] in 9.6 mg/dL 8.5-10.1 [facility] - Good Serum or Plasma [facility] ital Bilirubin.total 0.3 mg/dL 0.2-1.0 [facility] - Good [Mass/volume] in Serum or [facility] Plasma Alanine aminotransferase 11 U/L 13-61 Below low normal [facility] - Good [Enzymatic activity/volume] [facility] in Serum or Plasma Aspartate aminotransferase 7 U/L 15-37 Below low normal [facility] - Good [Enzymatic activity/volume] [facility] in Serum or Plasma by With P-5'-P Alkaline phosphatase 66 U/L 45-117 [facility] - G ood [Enzymatic activity/volume] [facility] in Serum or Plasma Protein [Mass/volume] in 6.9 g/dL 6.4-8.2 [facility] - Good Serum or Plasma [facility] ital Albumin [Mass/volume] in 2.7 g/dL 3.5-4.7 Below low normal [facility] - Good Serum or Plasma by [facility] romeo Bromocresol purple (BCP) dye binding method Globulin [Mass/volume] in 4.2 g/dL 1.7-4.7 [facility] - Good Serum by calculation [facility] Albumin/Globulin [Mass 0.6 0.7-2.8 Below low normal [facility] - Good Ratio] in Serum or Plasma [facility] ID Date Data Source [id number] 03/11/2019 04:30:46 AM EST [facility] Name Value Range Interpretation Description Data Sup porting Code Source(s) Document(s ) Leukocytes 18.6 4.8-10.6 Above high normal [facility] - [#/volume] in K/uL Good Blood by Taoist Automated count Hospital Erythrocytes 4.19 4.70-6.0 Below low normal [facility] - [#/volume] in M/uL 0 Good Blood by Taoist Automated count Hospital Hemoglobin 13.4 14.0-18. Below low normal [facility] - [Mass/volume] in g/dL 0 [facility] Blood [facility] Hematocrit 41.2 % 42.0-52. Below low normal [facility] - [Volume 0 Good Fraction] of Taoist Blood by Hospital Automated count Erythrocyte mean 98.3 FL 81.0-94. Above high normal [facility] - corpuscular 0 Good volume [Entitic Taoist volume] by Hospital Automated count Erythrocyte mean 32.0 PG 27.0-35. [facility] - corpuscular 0 Good hemoglobin Taoist [Entitic mass] [facility] by Automated count Erythrocyte mean 32.5 30.7-37. [facility] - corpuscular g/dL 3 Good hemoglobin Taoist concentration [facility] [Mass/volume] by Automated count Erythrocyte 15.9 % 11.5-14. Above high normal [facility] - distribution 0 Good width [Ratio] by Taoist Automated count Hospital Platelets 263 K/uL 130-400 [facility] - [#/volume] in [facility] Blood by Taoist Automated count Hospital Platelet mean 9.2 FL 9.2-11.8 [facility] - volume [Entitic Good volume] in Blood [facility] Automated Hospital count Segmented 81 % 48.0-72. Above high normal [facility] - neutrophils/100 0 Good leukocytes in [facility] Lymphocytes/100 9 % 18.0-40. Below low normal [facility] - leukocytes in 0 [facility] Blood [facility] Monocytes/100 10 % 2.0-12.0 [facility] - leukocytes in [facility] Blood [facility] Eosinophils/100 0 % 0.0-7.0 [facility] - leukocytes in [facility] Blood [facility] Basophils/100 0 % 0.0-3.0 [facility] - leukocytes in [facility] Segmented 14.9 1.5-6.6 Above high normal [facility] - neutrophils K/UL Good [#/volume] in [facility] Lymphocytes 1.7 K/UL 1.5-3.5 [facility] - [#/volume] in [facility] Monocytes 1.8 K/UL 0.0-1.0 Above high normal [facility] - [#/volume] in [facility] Eosinophils 0.0 K/UL 0.0-0.7 [facility] - [#/volume] in [facility] Basophils 0.0 K/UL 0.0-0.1 [facility] - [#/volume] in [facility] Differential [facility] - cell count [facility] Immature 1 % 0.0-2.0 [facility] - granulocytes/100 [facility] leukocytes in [facility] by Hospital Automated count ID Date Data Source [id number] 03/11/2019 04:05:35 AM EST [facility] Pt arrived BIBA from [place] with c/ o fever, low oxygen saturation and pospneumonia. Pt 98% on non-rebreather. Name Value Range Interpretation Code Description Data Harriett rce(s) Supporting Document(s ) ID Date Data Source [id number] 02/20/2019 01:49:29 PM EST [facility] [place], [place] [address]TWMADZQ: EVELIO CARLINMRN: [id number]: 1ACCT#: [id number] DATE: 02/08/2019 OPERATIVE REPORTPROCEDURE DATE: 02/17/2019SURGEON: JOSE [facility] [facility] PHYSICIAN: Chay Gonzalez.WHITEPRINTING MACHINE OPERATOR: None.PREOPERATIVE DIAGNOSIS: Percutane ous endoscopic gastrostomy complications.POSTOPERATIVE DIAGNOSIS: Percutaneous endoscopic gastrostomy complications.PROCEDURE PERFORMED: Esop hagogastroduodenoscopy.ANESTHESIA: MAC by [facility].SPECIMENS REMOVED: None.IMPLANTS: None.DRAINS PLACED: None.ESTIMATED BLOOD LOSS: None.COMPLIC ATIONS: None.CLINICAL INFORMATION: The patient is status post an endoscopically placedjejunostomy tube through his gastrostomy tube site. This went well; however,immediately after leaving and arriving on the floor last night, the je junostomytubewould not flush with water and was unable to be used. Today, I was maria isable ble toflushwater through nor clean it out with brush and so the decision was made to bringthepatient back to the endoscopy unit to remove the previously placed jejunost omytubeand place a new tube though the PEG site.DESCRIPTION OF PROCEDURE: Exam too k place using an Olympus video gastroscope.Esophagus, stomach, and duod enum to fourth portion were examined. Sedation wasadministered by Anesthesiemma martinez. Vital signs were monitored throughout theprocedure.The patient tolerated the p rocedure well.FINDINGS:1. Esophagus not well visualized.2. Stomach was grossly jazzmine l. There was a jejunostomy tube seen coming fromtheinternal PEG bumper, looping in t he stomach, and entering into the duodenum.Thiswas followed into the dista l duodenum, proximal jejunum. The suture wasidentifiedfrom which the clip was att ached, although the clip itself was one fold distaltowhere I was able to reach.I then detached the J-tube from the PEG tube by unscrewing the fastener andproceededto p ull, under direct visualization, some of the J-tube out from the G-tubesite. Atthat time, prior to actually removing the J-tube, I decided to try flushing theJ-tube, and it flushed easily with water without any resistance. I, therefore,re-pushed in t he J-tube to fasten to the PEG tube and flushed again and onceagain,the J-tube f lushed without any resistance. All the while, the endoscope tip wasinthe distal duodenum, and I could see that the tip of the J-tube had not pulledoutfrom where i t was positioned. I then made the decision to terminate theprocedure atthis point w ithout any further intervention.IMPRESSION: Status post repositioning of jejunostomy tube through gastrostomytube,now it is working properly. It is possible that t here was kink in the tube.RECOMMENDATIONS: We would begin feeds and follow clinical ly. DARRYL HARRISON, MDDD: 02/17/2019 11:40 :29/SG /[id number] #: [id number] / [id number] Name Value Range Interpretation Code Description Data Harriett rce(s) Supporting Document(s ) ID Date Data Source [id number] 02/20/2019 08:55:47 AM EST [facility] The history is provided by a caregiver.1 2:25 PM: Evelio Carlin is a 68 y.o. 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 The patient was sent to the ED from [facility], for a clogged J-tube that was placed on 02/17/2019. , the physician at the long-term, reports the tube became cloggedtoday after the nurses attempted to give the patient his medications, that theycrushed, through the J tube. 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 No pertinent family history.Social HistorySocioeconomic Hist ory Marital status: SINGLE Spouse name: Not on file Number of children: Not on file Years of education: Not on file Highest education level: Not on fileOccupational History Not on fileSocial Needs Financial resource strain: Not on file Food insec urity: Worry: Not on file Inability: Not on file Transportation needs: Medical: No t on file Non-medical: Not on fileTobacco Use Smoking status: Never Smoker Smoke less tobacco: Never UsedSubstance and Sexual Activity Alcohol use: No Drug use: No Sexual activity: Not on fileLifestyle Physical activity: Days per week: Not o n file Minutes per session: Not on file Stress: Not on fileRelationships Social connections: Talks on phone: Not on file Gets together: Not on file Attends reli gious service: Not on file Active member of club or organization: Not on file Atten ds meetings of clubs or organizations: Not on file Relationship status: Not on file Intimate partner violence: Fear of current or ex partner: Not on file Emotionally abused: Not on file Physically abused: Not on file Forced sexual activity: Not on fileOther Topics Concern Service Not Asked Blood Transfusions Not Asked Caffeine Concern Not Asked Occupational Exposure Not Asked Hobby Hazards Not As ked Sleep Concern Not Asked Stress Concern Not Asked Weight Concern Not Asked Spe cial Diet Not Asked Back Care Not Asked Exercise Not Asked Bike Helmet Not Aske d Seat Belt Not Asked Self-Exams Not AskedSocial History Narrative Not on fi leALLERGIES: Patient has no known allergies.Review of SystemsUnable to per form ROS: Patient nonverbalVitals: 02/19/19 1235 02/19/19 1356BP: 120/67 118/73Pulse : 73 74Resp: 18 18Temp: 97.7 F (36.5 C) 97.9 F (36.6 C)SpO2: 96% 98%Weight: 61 .2 kg (135 lb)Height: 5' 2" (1.575 m)12:35 PM Pulse Oximetry reading is 96 % on room a ir, which indicates normaloxygenation per Lisa Powell MD.Physical ExamConstit utional: He appears well-developed and well-nourished. No distress.Non verbalHE NT:Head: Normocephalic and atraumatic.Right Ear: External ear normal.Left Ear: Exter nal ear normal.Nose: Nose normal.Mouth/Throat: Oropharynx is clear and moist.Eyes: Pupils are equal, round, and reactive to light. Conjunctivae and EOM arenormal. No scleral icterus.Neck: Normal range of motion. Neck supple.Cardiovascu lar: Normal rate, regular rhythm, S1 normal, S2 normal, normal heartsounds and intact distal pulses. Exam reveals no gallop and no friction rub.No murmur heard.Pulmonary/C hest: Effort normal and breath sounds normal. No respiratorydistress. He has no wheeze s. He has no rales.J tube in placeAbdominal: Soft. He exhibits no distension. There i s no hepatosplenomegaly.There is no tenderness. There is no rebound and no g uarding.Musculoskeletal: Normal range of motion. He exhibits no edema or tenderne ss.Neurological: He is alert. He has normal strength. No cranial nerve deficit. Heex hibits normal muscle tone.Skin: Skin is warm and dry.Nursing note and vitals reviewed .MDMNumber of Diagnoses or Management OptionsClogged feeding tube:Amount and/o r Complexity of Data ReviewedDecide to obtain previous medical records or to obtain hi story from someoneother than the patient: yesObtain history from someone other myrtle n the patient: yesReview and summarize past medical records: yesDiscuss the patient with other providers: yesIndependent visualization of images, tracings, or sp ecimens: yesProSherry Christine Kimberly, MD, reviewed the patient's past history, all ergies and homemedications as documented in the nursing chart.<EMERGENCY DEPARTMENT CASE SUMMARY>Impression/Differential Diagnosis: Clogged feeding tubeED Cours e:68 y.o. male presented to the ED for clogged J-tube1:05 PM Case presentation and findings discussed with Dr. Trejo (Gastroenterology)who agrees to see the patient in consult.1:56 PM The patient was reassessed at this time and the relative at bedsidereports the patient had two procedures performed where his G tube wa s convertedinto a J tube. He was later given crushed pills at his long-term whichp ossibly caused the blockage.2:[address] Trejo (Gastroenterology) was able to unclog th e feeding tube andstates the patient can return to the long-term.2:59 PM: Siri ent was reassessed prior to discharge. Patient's symptoms Resolved.I personally discussed discharge plan with patient/guardian, who understandsinstruc tions. All questions were answered. Patient/guardian advised to followup wit h PMD and/or specialist. Patient/guardian instructed to return to the ERif symptom s persist, change or worsen. Patient agrees with plan.Final Impression/Diagnosis:Enc ounter Diagnoses ICD-10-CM ICD-9-CM1. Clogged feeding tube T85.598A 996.79Pati ent condition at time of disposition: stableI have reviewed the following home medicat ions:Prior to Admission medicationsMedication Sig Start Date End Date Taking? Authoriz ing Providercefepime 2 gram 2 g IVPB 2 g by IntraVENous route every eight (8) hours. 02/12/19 Christos Lopez MDheparin sodium,porcine (HEPARIN, PORCINE,) 5,000 unit/mL injection 1 mL bySubCUTAneous route every twelve (12) hours every twelve (12 ) hours. 02/12/19Christos Lopez MDpantoprazole (PROTONIX) 40 mg granules for oral suspension 40 mg by Per NG tuberoute Daily (before breakfast). 02/13 Christos Lopez MDpredniSONE (DELTASONE) 10 mg tablet Take 20 mg by m outh daily. 02/12/19Christos Lopez MDpredniSONE (DELTASONE) 10 mg tablet Ta ke 10 mg by mouth daily (with breakfast).02/12/19 Christos Lopez M Dmultivitamin (MULTI-DELYN, WELLESSE) liqd 5 mL by Per G Tube route daily.Provider, Cindi istoricalvalproic acid, as sodium salt, (DEPAKENE) 250 mg/5 mL (5 mL) soln oral [id number] mg by Per G Tube route every twelve (12) hours. Provider, Gavinic alacetylcysteine (MUCOMYST) 100 mg/mL (10 %) nebulizer solution Take 4 mL byinhalatio n two (2) times a day. Provider, Ediezinc oxide 10 % topical cream Apply to affected area daily. Ribbon around GTsite Provider, Edieomeprazole (PRILOSEC) 2 mg/mL susp 2 mg/mL oral suspension (compounded) 40 mg byPer G Tu be route daily. Provider, Ediesilver sulfADIAZINE (SILVADENE) 1 % topical cre am Apply to affected area two(2) times a day. 1 inch ribbon- right edge Provid er, Historicalacetaminophen (TYLENOL) 32MG/ML soln solution Take 20.3 mL by mouth ever y four(4) hours as needed for Pain or Fever. 01/24/19 Mili Hills Trudy vaccine 2019-20, 65 yrs+,,PF, (FLUZONE HIGH-DOSE) syrg injection 0.5mL by Intra MUSCular route PRIOR TO DISCHARGE. 01/24/19 Mili Hills DOcholestyramine-aspart ayan (QUESTRAN LIGHT) 4 gram packet Take 1 Packet by mouthtwo (2) times a day.Patie nt taking differently: 4 g two (2) times a day. Via G tube. 01/24/19Mili Hills DOclorazepate (TRANXENE) 3.75 mg tablet 1 Tab by Per G Tube route nightly. MaxDail y Amount: 3.75 mg. 12/30/18 Mili Hills DOcinacalcet (SENSIPAR) 30 mg tablet Cecilio e 2 Tabs by mouth daily.Patient taking differently: 60 mg daily. Via G tube 12/14 10/31 Mili HillsDOlamoTRIgine (LAMICTAL) 25 mg tablet 2 Tabs by Per G Tube route two (2) times aday. 12/30/18 Mili Hills DOalbuterol-ipratropium (DUO-NEB) 2.5 mg-0.5 mg/3 ml nebu 3 mL by Nebulizationroute every six (6) hours. E very 6 hours while awake 12/30/18 Mili HillsDObudesonide (PULMICORT) 0.5 mg/ 2 mL nbsp 2 mL by Nebulization route two (2) timesa day. 12/30/18 Mili Hills D Obacitracin 500 unit/gram ointment Apply 1 Packet to affected area two (2) timesa d ay. Indications: minor skin infection due to bacteria, facial scabs 12/30/18Maryam Hills DOReade, Kimberly, MD I, Sabrina Dunn, am serving as a scribe to document servi martine personallyperformed by Lisa Powell MD based on my observation and the provi bassem'sstatements to me.I, Lisa Powell MD, attest that the person(s) noted above, a cting as myscribe(s) noted above, has observed my performance of the services and hasdocumented them in accordance with my direction. I have personally reviewed th eabove information and have ordered and reviewed the diagnostic studies, unlesso therwise noted. Name Value Range Interpretation Code Description Data Harriett rce(s) Supporting Document(s ) ID Date Data Source 36N*ENCOUNTER 02/19/2019 04:22:36 PM EST BSS - [facility] [id number] [facility] [address] [facility] [address] [phone] Evelio Carlin (Male) [id number] I 3 ED Dispo:DISCHARGE Chief Complaint: Feeding Tube Problem Diagnosis: Clogged feeding tube [] Current Providers: Attending: Joao Powell Consulting Provider: Cristina Trejo Primary Nurse: Taylor Rosado ACSN: [id number] Print Group [phone] - [facility] [address] Ed Medva MrOHRN: [id number] [employer] [id number] - [facility] [address] Ed Medva Age SexDOB 1950 AGE 68 SEX Male Primary Care Provider: Mili Hills DO Nhsrwrsby: (No Known Allergies)Date Reviewed: 02/19/2019Reviewed by: Moustapha, Danny, RN - Review CompleteED Provider Notes: No notes of this type exist for this encounter.ED Orders CON68 IP CO NSULT TO GASTROENTEROLOGY [#[id number]] Priority: STAT Class: Hospital Performed Standing Order Inf ormation Remaining Occurrences:0/1 Interval:ONE TIME Last released:02/19/2019 Released orders: Caro Feb 19, 2019 12:37 PM by: LISA POWELL Reason for Consult: -> feeding tube dsyf unction Did you call or speak to the consulting provider? -> No Consult To -> Harrison Schedule Wh en? -> TODAY CON68 IP CONSULT TO GASTROENTEROLOGY [#[id number]] Priority: STAT Class: H ospital Performed Reason for Consult: -> feeding tube dsyfunction Did you call or speak to the consult ing provider? -> No Consult To -> Schedule When? -> TODAY Released on: 02/19/2019 12:37 P Evelio Pemberton MR#: [id number] * Rm: [id number]: 5' 2" Wt: 135 lb Co de: Prior Iso:Diagnosis:Allergies: No Known Allergies -------- Current as of: 02/19/19 1622 GI=Given OP=Override p ull for Anesthesia ---------albuterol-ipratropium (DUO-NEB) 2.5 MG-0.5 MG/3 ML #[id number] Admin Amount: 3 mL Ordered Dose: 3 mL Route: Nebulization Freq: NOW Start Date: 11/07/18 No administration times (back 96 hours, ahead 96 hours). ------methylPREDNISolone (PF) (Solu-MEDROL) injection 125 mg #[id number] Admin Amount: 2 mL = 125 mg of 125 mg/2 mL Ordered Dose: 125 mg Route: Int raVENous Freq: NOW Start Date: 11/07/18 No administration times (back 96 hours, ahe ad 96 hours). ------cefTRIAXone (ROCEPHIN) 1 g in 0.9% sodium chloride (MBP/ADV) 50 m L M*#[id number] Admin Amount: 1 g Ordered Dose: 1 g Route: IntraVENous Freq: NOW Start Date: 11/07/18 Rate: 100 mL/hr Duration: 30 Minutes No administration times (back 96 hours, ahead 96 hours). ------azithromycin (ZITHROMAX) 500 mg in NS 250 mL #[id number] Admin Amount: 250 mL = 500 mg of 500 mg/250 mL Ordered Dose: 500 mg Route: Int raVENous Freq: NOW Start Date: 11/07/18 Rate: 250 mL/hr Duration: 6 0 Minutes No administration times (back 96 hours, ahead 96 hours). ------iopamidol (ISOVUE-370) 76 % injection 100 mL #[id number] Admin Amount: 100 mL Ordered Dose: 100 mL Route: IntraVENous Freq: RAD ONCE Start Date: 11/07/18 No administration times (back 96 hours, ahead 96 hours). ------sodium chloride 0.9 % bolus infusion 500 mL #[id number] Admin Amount: 500 mL Ordered Dose: 500 mL Route: IntraVENo us Freq: ONCE Start Date: 11/08/18 Rate: 666.7 mL/hr Duration: 45 Danielle tasha No administration times (back 96 hours, ahead 96 hours). ------ALPRAZolam (XANAX) tablet 0.25 mg #[id number] Admin Amount: 1 Tab (1 x 0.25 mg Tab) Ordered Dose: 0.25 mg Route: Oral Dg q: DAILY Start Date: 11/08/18 No administration times (back 96 hours, ahead 96 hours).Evelio Garnett MR#: [id number] * Rm: [id number]: 5' 2" Wt: 135 lb Co de: Prior Iso:Diagnosis:Allergies: No Known Allergies -------- Current as of: 02/19/19 1622 GI=Given OP=Override p ull for Anesthesia ---------cefTRIAXone (ROCEPHIN) 1 g in 0.9% sodium chloride (MBP/ADV) 50 mL M*#[id number] Admin Amount: 1 g Ordered Dose: 1 g Route: IntraVENous Freq: EVERY 24 HO URS Start Date: 11/08/18 Rate: 100 mL/hr Duration: 30 Minutes No administration times (back 96 hours, ahead 96 hours). ------azithromycin (ZITHROMAX) 500 mg in 0.9% sodium chloride 250 mL IV PB #[id number] Admin Amount: 500 mg Ordered Dose: 500 mg Route: IntraVENous Freq: EVERY 24 H OURS Start Date: 11/08/18 Rate: 250 mL/hr Duration: 60 Minutes No administration times (back 96 hours, ahead 96 hours). ------LORazepam (ATIVAN) injection 0.5 mg #[id number] Admin Amount: 0.25 mL = 0.5 mg of 2 mg/mL Ordered Dose: 0.5 mg Ro manzanita: IntraVENous Freq: ONCE Start Date: 11/10/18 No administration times (back 96 hours, ahead 96 hours). ------LORazepam (ATIVAN) injection 2 mg #[id number] Admin Amount: 1 mL = 2 mg of 2 mg/mL Ordered Dose: 2 mg Route: Int raVENous Freq: ONCE Start Date: 11/11/18 No administration times (back 96 hours, ahe ad 96 hours). ------LORazepam (ATIVAN) injection 0.5 mg #[id number] Admin Amount: 0.25 mL = 0.5 mg of 2 mg/mL Ordered Dose: 0.5 mg Ro manzanita: IntraVENous Freq: ONCE Start Date: 11/11/18 No administration times (back 96 hours, ahead 96 hours). ------acetaminophen (OFIRMEV) infusion 1,000 mg #[id number] Admin Amount: 100 mL = 1,000 mg of 1,000 mg/100 mL Ordered Dose: 1,000 mg Ro manzanita: IntraVENous Freq: EVERY 6 HOURS Start Date: 11/17/18 Rate: 400 mL/hr Durat ion: 15 Minutes No administration times (back 96 hours, ahead 96 hours). ------HYDROmorphone (DILAUDID) syringe 0.5 mg #[id number] Admin Amount: 0.5 mL = 0.5 mg of 0.5 mg/0.5 mL Ordered Dose: 0.5 mg Route: Int raVENous Freq: EVERY 6 HOURS NEEDED Start Date: 11/17/18 No administration times (back 96 hours, ahe ad 96 hours).Evelio Carlin MR#: [id number] * Rm: [id number]: 5' 2" Wt: 135 lb Code: Prior Iso:Diagnosis:Allergies: No Known Allergies -------- Current as of: 02/19/19 1622 GI=Given OP=Override p ull for Anesthesia ---------acetaminophen (OFIRMEV) infusion 1,000 mg #[id number] Admin Amount: 100 mL = 1,000 mg of 1,000 mg/100 mL Ordered Dose: 1,000 mg Route: IntraVENous Freq: EVERY 6 HOURS Start Date: 11/18/18 Rate: 400 mL/hr Duration: 15 Minutes No administration times (back 96 hours, ahead 96 hours). ------piperacillin-tazobactam (ZOSYN) 3.375 g in 0.9% sodium chloride (MBP*#[id number] Admin Amount: 3.375 g Ordered Dose: 3.375 g Route: IntraVENous Freq: EVERY 8 HOURS Start Date: 11/18/18 Rate: 25 mL/hr Duration: 240 Minutes No administrati on times (back 96 hours, ahead 96 hours). ------potassium chloride 10 mEq in 100 ml IVPB #[id number] Admin Amount: 100 mL = 10 mEq of 10 mEq/100 mL Ordered Dose: 10 mEq Route: Int raVENous Freq: EVERY 1 HOUR Start Date: 11/19/18 Rate: 100 mL/hr Duration: 6 0 Minutes No administration times (back 96 hours, ahead 96 hours). ------diatrizoate tiffani-diatrizoat sod (RUTHYGASTROVIEW,GASTRO GRAFIN) 66-10 % *#[id number] Admin Amount: 30 mL Ordered Dose: 30 mL Route: Oral Freq: RAD O NCE Start Date: 11/19/18 No administration times (back 96 hours, ahead 96 hours). ------acetaminophen (OFIRMEV) infusion 1,000 mg #[id number] Admin Amount: 100 mL = 1,000 mg of 1,000 mg/100 mL Ordered Dose: 1,000 mg Ro manzanita: IntraVENous Freq: EVERY 6 HOURS Start Date: 11/21/18 Rate: 400 mL/hr Durat ion: 15 Minutes No administration times (back 96 hours, ahead 96 hours). ------acetaminophen (OFIRMEV) infusion 1,000 mg #[id number] Admin Amount: 100 mL = 1,000 mg of 1,000 mg/100 mL Ordered Dose: 1,000 mg Ro manzanita: IntraVENous Freq: EVERY 6 HOURS Start Date: 11/22/18 Rate: 400 mL/hr Durat ion: 15 Minutes No administration times (back 96 hours, ahead 96 hours). ------LORazepam (ATIVAN) tablet 0.5 mg #[id number] Admin Amount: 1 Tab (1 x 0.5 mg Tab) Ordered Dose: 0.5 mg Route: Per G Tube F req: EVERY BEDTIME Start Date: 11/23/18 No administration times (back 96 hours, ahead 96 hours).Evelio Garnett MR#: [id number] * Rm: [id number]: 5' 2" Wt: 135 lb Co de: Prior Iso:Diagnosis:Allergies: No Known Allergies -------- Current as of: 02/19/19 1622 GI=Given OP=Override p ull for Anesthesia ---------vancomycin (VANCOCIN) 1,250 mg in 0.9% sodium chloride 250 mL IVPB #[id number] Admin Amount: 1,250 mg Ordered Dose: 1,250 mg Route: IntraVENous Freq: EVERY 12 HOURS Start Date: 11/24/18 Rate: 125 mL/hr Duration: 120 Minutes No administ ration times (back 96 hours, ahead 96 hours). ------potassium chloride (KLOR-CON) packet for solution 20 mEq #[id number] Admin Amount: 1 Packet (1 x 20 mEq Packet) Ordered Dose: 20 mEq Ro manzanita: Oral Freq: 2 TIMES DAILY WITH MEALS Start Date: 11/25/18 No administration times (back 96 hours, e ad 96 hours). ------piperacillin-tazobactam (ZOSYN) 3.375 g in 0.9% sodium chloride (MBP*#[id number] Admin Amount: 3.375 g Ordered Dose: 3.375 g Route: IntraVENous Freq: NOW Start Date: 12/12/18 Rate: 200 mL/hr Duration: 30 Minutes No administrati on times (back 96 hours, ahead 96 hours). ------albuterol-ipratropium (DUO-NEB) 2.5 MG-0.5 MG/3 ML #[id number] Admin Amount: 3 mL Ordered Dose: 3 mL Route: Nebulization Freq: NOW Start Date: 12/12/18 No administration times (back 96 hours, ahead 96 hours). ------methylPREDNISolone (PF) (Solu-MEDROL) injection 125 mg #[id number] Admin Amount: 2 mL = 125 mg of 125 mg/2 mL Ordered Dose: 125 mg Route: Int raVENous Freq: NOW Start Date: 12/12/18 No administration times (back 96 hours, ahe ad 96 hours). ------albuterol-ipratropium (DUO-NEB) 2.5 MG-0.5 MG/3 ML #[id number] Admin Amount: 3 mL Ordered Dose: 3 mL Route: Nebulization Freq: NOW Start Date: 12/12/18 No administration times (back 96 hours, ahead 96 hours). ------albuterol-ipratropium (DUO-NEB) 2.5 MG-0.5 MG/3 ML #[id number] Admin Amount: 3 mL Ordered Dose: 3 mL Route: Nebulization Freq: NOW Start Date: 12/12/18 No administration times (back 96 hours, ahead 96 hours).Ivelisse Carlin MR#: [id number] * Rm: [id number]: 5' 2" Wt: 135 lb Code: Prior Iso:Diagnosis:Allergies: No Known Allergies -------- Current as of: 02/19/19 1622 GI=Given OP=Override p ull for Anesthesia --------- Followed by [facility] (Order count: 2)sodium chloride 0. 9 % bolus infusion 1,000 mL #[id number] Admin Amount: 1,000 mL Ordered Dose: 1,000 mL Route: IntraVENous Freq: ONCE Start Date: 12/12/18 No administration t imes (back 96 hours, ahead 96 hours). - Followed by - - - - - - - - - - - - - - - - - - - - - - - - - - - - - - - -sodium chloride 0.9 % bolus infusion 593 mL #[id number] Admin Amount: 593 mL Orde red Dose: 593 mL Route: IntraVENous Freq: ONCE Start Date: 12/12/18 No a dministration times (back 96 hours, ahead 96 hours). ------iopamidol (ISOVUE-370) 76 % injection 125 mL #[id number] Admin Amount: 125 mL Ordered Dose: 125 mL Route: IntraVENous Freq: RAD ONCE Start Date: 12/17/18 No administration times (back 96 hours, ahead 96 hours). ------lidocaine (XYLOCAINE) 20 mg/mL (2 %) injection 100 mg #[id number] Admin Amount: 5 mL = 100 mg of 2,000 mg/100 mL Ordered Dose: 5 mL Route: IntraDERMal Freq: ONCE Start Date: 12/19/18 No administration times (b ack 96 hours, ahead 96 hours). ------oxyCODONE-acetaminophen (PERCOCET) 5-325 mg per tablet 1 Tab #[id number] Admin Amount: 1 Tab Ordered Dose: 1 Tab Route: Oral Freq: EVERY 8 HOURS NEEDED Start Date: 12/19/18 No administration times (back 96 hours, ahead 96 hours). ------furosemide (LASIX) injection 20 mg #[id number] Admin Amount: 2 mL = 20 mg of 10 mg/mL Ordered Dose: 20 mg Ro manzanita: IntraVENous Freq: ONCE Start Date: 12/26/18 No administration times (back 96 hours, ahead 96 hours). ------furosemide (LASIX) injection 20 mg #[id number] Admin Amount: 2 mL = 20 mg of 10 mg/mL Ordered Dose: 20 mg Route: Int raVENous Freq: ONCE Start Date: 12/29/18 No administration times (back 96 hours, ahe ad 96 hours).Evelio Carlin MR#: [id number] * Rm: [id number]: 5' 2" Wt: 135 lb Code: Prior Iso:Diagnosis:Allergies: No Known Allergies -------- Current as of: 02/19/19 1622 GI=Given OP=Override p ull for Anesthesia ---------albuterol-ipratropium (DUO-NEB) 2.5 MG-0.5 MG/3 ML #[id number] Admin Amount: 3 mL Ordered Dose: 3 mL Route: Nebulization Freq: NOW Start Date: 01/10/19 No administration times (back 96 hours, ahead 96 hours). ------methylPREDNISolone (PF) (Solu-MEDROL) injection 125 mg #[id number] Admin Amount: 2 mL = 125 mg of 125 mg/2 mL Ordered Dose: 125 mg Route: Int raVENous Freq: NOW Start Date: 01/10/19 No administration times (back 96 hours, [facility] ad 96 hours). ------albuterol-ipratropium (DUO-NEB) 2.5 MG-0.5 MG/3 ML #[id number] Admin Amount: 3 mL Ordered Dose: 3 mL Route: Nebulization Freq: NOW Start Date: 01/10/19 No administration times (back 96 hours, ahead 96 hours). ------acetaminophen (TYLENOL) tablet 650 mg #[id number] Admin Amount: 2 Tab (2 x 325 mg Tab) Ordered Dose: 650 mg Route: Per G Tub e Freq: NOW Start Date: 01/10/19 No administration times (back 96 hours, e ad 96 hours). ------piperacillin-tazobactam (ZOSYN) injection 3.375 g #[id number] Admin Amount: 3.375 g Ordered Dose: 3.375 g Route: IntraVENous Freq: NOW Start Date: 01/10/19 No administration times (back 96 hours, ahead 96 hours). ------vancomycin (VANCOCIN) 1,000 mg in 0.9% sodium chloride 250 mL IVPB #[id number] Admin Amount: 1,000 mg Ordered Dose: 1,000 mg Route: IntraVENous Freq: ONCE Start Date: 01/10/19 Rate: 125 mL/hr Duration: 120 Minutes No administ ration times (back 96 hours, ahead 96 hours). ------ Followed by [facility] (Order count: 2)sodium chloride 0. 9 % bolus infusion 1,000 mL #[id number] Admin Amount: 1,000 mL Ordered Dose: 1,000 mL Route: IntraVENous Freq: ONCE Start Date: 01/10/19 No administration t imes (back 96 hours, ahead 96 hours).Evelio Carlin MR#: [id number] * Rm: KAREL 30-30Ht: 5' 2" Wt: 135 lb Code: Prior Iso:Diagnosis:Allergies: No Known Allergies -------- Current as of: 02/19/19 1622 GI=Given OP=Override p ull for Anesthesia - Followed by - - - - - - - - - - - - - - - - - - - - - - - - - - - - - - - -sodium chloride 0.9 % bolus infusion 551 mL #[id number] Admin Amount: 551 mL Ordered Dose: 551 mL Route: IntraVENous Freq: ONCE Start Date: 01/10/19 No administration t imes (back 96 hours, ahead 96 hours). ------0.9% sodium chloride (MBP/ADV) infusion #[id number] Ordered Dose: Route: Freq: Start Date: No administration times (back 96 hours, ahead 96 hours). ------influenza vaccine 2018- (65 yrs+)(PF) (FLUZONE HIGH-DOSE) inject io*#[id number] Admin Amount: 0.5 mL Ordered Dose: 0.5 mL Route: IntraMUSCular Freq: PRIOR TO DISCHARGE Start Date: 01/10/19 No administration times (back 96 hours, ahead 96 hours). ------piperacillin-tazobactam (ZOSYN) 3.375 g in 0.9% sodium chloride (MBP*#[id number] Admin Amount: 3.375 g Ordered Dose: 3.375 g Route: IntraVENous Freq: EVERY 8 HOURS Start Date: 01/10/19 Rate: 25 mL/hr Duration: 240 Minutes No administrat ion times (back 96 hours, ahead 96 hours). ------potassium, sodium phosphates (NEUTRA-PHOS) packet 1 Packet #[id number] Admin Amount: 1 Packet Ordered Dose: 1 Packet Route: Per G Tube Freq: 4 TIMES DAILY Start Date: 01/12/19 No administration times (back 96 hours, ahead 96 hours). ------iopamidol (ISOVUE 300) 61 % contrast injection 100 mL #[id number] Admin Amount: 100 mL Ordered Dose: 100 mL Route: IntraVENous Freq: RAD ONCE Start Date: 01/15/19 No administration times (back 96 hours, ahead 96 hours). ------sodium phosphate 15 mmol in 0.9% sodium chlorid e 250 mL infusion #[id number] Ordered Dose: Route: IntraVENous Freq: ONCE Start Date: 01/20/19 Rate: 63.8 mL/hr Duration: 4 Hours No administration patria es (back 96 hours, ahead 96 hours).Evelio Carlin MR#: [id number] * Rm: ER 30-30Ht: 5' 2" Wt: 135 lb Code: Prior Iso:Diagnosis:Allergies: No Known Allergies -------- Current as of: 02/19/19 1622 GI=Given OP=Override p ull for Anesthesia ---------acetaZOLAMIDE SR (DIAMOX) capsule 500 mg #[id number] Admin Amount: 1 Cap (1 x 500 mg Cap) Ordered Dose: 500 mg Route: Ora l Freq: ONCE Start Date: 01/23/19 No administration times (back 96 hours, e ad 96 hours). ------albuterol (PROVENTIL VENTOLIN) nebulizer solution 2.5 mg #[id number] Admin Amount: 3 mL = 2.5 mg of 2.5 mg/3 mL Ordered Dose: 2.5 mg Route: Neb ulization Freq: NOW Start Date: 02/08/19 No administration times (back 96 hours, ahe ad 96 hours). ------albuterol (PROVENTIL VENTOLIN) nebulizer solution 2.5 mg #[id number] Admin Amount: 3 mL = 2.5 mg of 2.5 mg/3 mL Ordered Dose: 2.5 mg Route: Neb ulization Freq: NOW Start Date: 02/08/19 No administration times (back 96 hours, [facility] ad 96 hours). ------ Followed by [facility] (Order count: 2)sodium chloride 0. 9 % bolus infusion 1,000 mL #[id number] Admin Amount: 1,000 mL Ordered Dose: 1,000 mL Route: IntraVENous Freq: ONCE Start Date: 02/08/19 No administration times (back 96 hours, ahead 96 hours). - Followed by - - - - - - - - - - - - - - - - - - - - - - - - - - - - - - - -sodium chloride 0.9 % bolus infusion 701 mL #[id number] Admin Amount: 701 mL Pequeae red Dose: 701 mL Route: IntraVENous Freq: ONCE Start Date: 02/08/19 No administration times (back 96 hours, ahead 96 hours). ------cefepime (MAXIPIME) 2 g in 0.9% sodium chloride (MBP/ADV) 100 mL MBP #[id number] Admin Amount: 2 g Ordered Dose: 2 g Route: IntraVENous Freq: NOW Start Date: 02/08/19 Rate: 200 mL/hr Duration: 30 Minutes No administration times (back 96 hours, ahead 96 hours). ------vancomycin (VANCOCIN) 1,000 mg in 0.9% sodium chloride 250 mL IVPB #[id number] Admin Amount: 1,000 mg Ordered Dose: 1,000 mg Route: IntraVENous Freq: ONCE Start Date: 02/08/19 Rate: 125 mL/hr Duration: 120 Minutes No adminis tration times (back 96 hours, ahead 96 hours).Evelio Carlin MR#: [id number] * Rm: [id number]: 5' 2" Wt: 135 lb Code: Prior Iso:Diagnosis:Allergies: No Known Allergies -------- Current as of: 02/19/19 1622 GI=Given OP=Override p ull for Anesthesia ---------ALPRAZolam (XANAX) tablet 0.25 mg #[id number] Admin Amount: 1 Tab (1 x 0.25 mg Tab) Ordered Dose: 0.25 mg Route: Per G Tube Freq: 4 TIMES DAILY NEEDED Start Date: 02/08/19 No administration times (back 96 hours, ahe ad 96 hours). ------cefepime (MAXIPIME) 2 g in 0.9% sodium chloride (MBP/ADV) 100 mL MBP #[id number] Admin Amount: 2 g Ordered Dose: 2 g Route: IntraVENous Freq: EVERY 8 HOUR S Start Date: 02/09/19 Rate: 200 mL/hr Duration: 30 Minutes No administration times (back 96 hours, ahead 96 hours). ------ALPRAZolam (XANAX) tablet 0.25 mg #[id number] Admin Amount: 1 Tab (1 x 0.25 mg Tab) Ordered Dose: 0.25 mg Route: Per G Tub e Freq: 4 TIMES DAILY NEEDED Start Date: 02/14/19 Administration times (back 96 hours, ahead 96 hours): 02/15/19: 2151GI -----propofol (DIPRIVAN) 10 mg/mL injection #[id number] Ordered Dose: Route: Freq: Start Date: 02/16/19 Administration times (back 96 hours, ahead 96 hours): 02/16/19: 1259OP -----midazolam (PF) (VERSED) 1 mg/mL injection #[id number] Ordered Dose: Route: Freq: Start Date: 9 Administration times (back 96 hours, ahead 96 hours): 02/16/19: 1251 ---albuterol (PROVENTIL VENTOLIN) 2.5 mg /3 mL (0.083 %) nebuliz karel dixon*#[id number] Ordered Dose: Route: Freq: Start Date: 04/18/18 Administration times (back 96 hours, ahead 96 hours): 02/16/19: 1411OP -----albuterol (PROVENTIL VENTOLIN) nebulizer solution 2.5 mg #[id number] Admin Amount: 3 mL = 2.5 mg of 2.5 mg/3 mL Ordered Dose: 2.5 mg Route: Inhalation Freq: NEEDED Start Date: 02/16/19 Administration times (back 96 h ours, ahead 96 hours): 02/16/19: PriscillaSUZANAlexEvelio munoz MR#: [id number] * Rm: Abbey N54-60Lg: 5' 2" Wt: 135 lb Code: Prior Iso:Diagnosis:Allergies: No Known Allergies -------- Current as of: 02/19/19 1622 GI=Given OP=Override p ull for Anesthesia ---------ePHEDrine (MISTOLE) 50 mg/mL injection #[id number] Ordered Dose: Route: Freq: Start Date: 02/16/19 Administration times (back 96 hours, ahead 96 hours): 02/16/19: 1500 ---propofol (DIPRIVAN) 10 mg/mL injection #[id number] Ordered Dose: Route: Freq: Start Date: 02/17/19 Administration times (back 96 hours, ahead 96 hours): 02/17/19: 1115OP -----fentaNYL citrate (PF) 50 mcg/mL injection #[id number] Ordered Dose: Route: Freq: Start Date: Administration times (back 96 hours, ahead 96 hours): 02/17/19: 1114OP -----midazolam (PF) (VERSED) 1 mg/mL injection #[id number] Ordered Dose: Route: Freq: Start Date: 9 Administration times (back 96 hours, ahead 96 hours): 02/17/19: 1100 ED Curren t OP Medicationscefepime 2 gram 2 g IVPBSi g by IntraVENous route every eight (8) hours.Dispense Amount:10 DoseStart Date:02/12/2019End Date:Doc. Provider: Christos Lopez MDheparin sodium,porcine (HEPARIN, PORCI NE,) 5,000 unit/mL injectionSi mL by SubCUTAneous route every twelve (12) hours every twelve (12) hours.Dispe nse Amount:10 mLStart Date:02/12/2019End Date:Doc. Provider: Christos Lopez MDpantoprazole (PROTONIX) 40 mg gr anules for oral suspensionSi mg by Per NG tube route Daily (before breakfast).Dispense Amount:30 EachStart Date:02/13/2019End Date:Doc. Provider: Christos Lopez MDpredniSONE (DELTASONE) 10 mg tabletSig:Take 20 mg b y mouth daily.Dispense Amount:3 TabStart Date:02/12/2019End Date:Doc. Provider: Christos Lopez MDpredniSONE (DELTASONE) 10 mg tabletSig:Take 10 mg by mouth daily (with breakfast).Dispense Amount:3 TabStart Da te:02/12/2019End Date:Doc. Provider: Christos Lopez MDmultivitamin (MULTI-DELYN, WELLESSE) liqdSi mL by Per G Tube route daily.Dispense Amount:Start Date:End Date:Doc. Provider: Bebeto Floresproic devang gabby, as sodium salt, (DEPAKENE) 250 mg/5 mL (5 mL) soln oral solutionSi mg by Per G Tube route e very twelve (12) hours.Dispense Amount:Start Date:End Date:Doc. Provider: ProviderEdieacetylcyst eine (MUCOMYST) 100 mg/mL (10 %) nebulizer solutionSig:Take 4 mL by inhalation two (2) times a day.Dispense Amount:Start Date:End Date:Doc. Provider: ProviderEdiezinc oxide 10 % topical creamSig:Apply to af fected area daily. Ribbon around GT siteDispense Amount:Start Date:End Date:Doc. Provider: Provider, Edie omeprazole (PRILOSEC) 2 mg/mL susp 2 mg/mL oral suspension (compounded)Si mg by Per G Tube rout e daily.Dispense Amount:Start Date:End Date:Doc. Provider: ProviderEdiesilver sulfADIAZINE (SILVADENE ) 1 % topical creamSig:Apply to affected area two (2) times a day. 1 inch ribbon- right shinDispense Amount:S tart Date:End Date:Doc. Provider: Edie Floresacetaminophen (TYLENOL) 32MG/ML soln solutionSig:Take 20.3 mL by mouth every four (4) hours as needed for Pain or Fever.Dispense Amount:250 mLStart Date:1 End Date:Doc. Provider: Mili Hills DOinfluenza vaccine 2019-, 65 yrs+,,PF, (FLUZONE HIGH-DOSE ) syrg injectionSi.5 mL by IntraMUSCular route PRIOR TO DISCHARGE.Dispense Amount:1 SyringeStart Date:01/24/2019End Date:Doc. Provider: Mili Hills DOcholestyramine-aspartame (QUESTRAN LIG HT) 4 gram packetSig:Take 1 Packet by mouth two (2) times a day.Patient taking differently: 4 g two (2) times a day. Via G tube.Dispense Amount:60 PacketStart Date:01/24/2019End Date:Doc. Provider: Mili Hills DOc lorazepate (TRANXENE) 3.75 mg tabletSi Tab by Per G Tube route nightly. Max Daily Amount: 3.75 mg.Dispe nse Amount:30 TabStart Date:12/30/2018End Date:Doc. Provider: Mili Hills DOcinacalcet (SENSIPAR) 30 mg t abletSig:Take 2 Tabs by mouth daily.Patient taking differently: 60 mg daily. Via G tubeDispense Amount:60 TabS tart Date:12/30/2018End Date:Doc. Provider: Mili Hills DOlamoTRIgine (LAMICTAL) 25 mg tabletSig :2 Tabs by Per G Tube route two (2) times a day.Dispense Amount:60 TabStart Date:12/30/2018End Date:Doc. Pro vider: Mili Hills DOalbuterol- ipratropium (DUO-NEB) 2.5 mg-0.5 mg/3 ml nebuSi mL by Nebulization rou te every six (6) hours. Every 6 hours while awakeDispense Amount:30 NebuleStart Date:12/30/2018End Date:Doc. Provider: Mili Hills DObudesonide (PULMICORT) 0.5 mg/2 mL nbspSi mL by Nebulization route two ( 2) times a day.Dispense Amount:60 EachStart Date:12/30/2018End Date:Doc. Provider: Mili Hills DObacitracin 500 unit/gram ointmentSig:Apply 1 Packet to affected area two (2) times a day. Indications: minor skin infect ion due to bacteria, facial scabsDispense Amount:20 PacketStart Date:12/30/2018End Date:Doc. Provider: Mili Dawn DO ED Prescriptions None on FileF ollow-up InformationFollow-up With:Jessie Whitt DODetails:Comments:Contact Info:[address] [facility] [phone] With:Darryl Harrison MDDetails:Schedule an appointme nt as soon as possible for a visitComments:Contact Info:[address] [facility] [phone] Name Value Range Interpretation Code Description Data Harriett rce(s) Supporting Document(s ) ID Date Data Source [id number] 02/19/2019 04:21:22 PM [facility] Transport arrived & report given to EMS at bedside, pt remains alert/altered atbaseline, obeys commands without furth er distress, dc'd return to nursing homewith papers in hand. Name Value Range Interpretation Code Description Data [facility] rce(s) Supporting Document(s ) ID Date Data Source [id number] 02/19/2019 03:51:58 PM [facility] aware pt to be givenliquids only through J-tube, no crushed meds. A waiting ambulance no furtherdistress noted. Name Value Range Interpretation Code Description Data [facility] rce(s) Supporting Document(s ) ID Date Data Source [id number] 02/19/2019 03:16:48 PM [facility] J-tube flushed and patent s/p GI consult , clean dressing in place and abdomennondistended, pt cleared for dc, business unit controller aware arranging transport Name Value Range Interpretation Code Description Data [facility] rce(s) Supporting Document(s ) ID Date Data Source [id number] 02/19/2019 03:16:11 PM [facility] Sent in because clogged jejunostomy tube vss afebabd soft non tender nl b sG-site clean and dryAttempted water flush faile d. Endo cleaning brush gently advanced, mildresistance. [place] removed, water fl ushed, 50cc egress into bowel,, processrepeated twice.recFlush w/ 50cc w ater after each feedDo not crush and instill medsAvoid "unnecessary" medsThank you Name Value Range Interpretation Code Description Data [facility] rce(s) Supporting Document(s ) ID Date Data Source [id number] 02/19/2019 02:42:10 PM [facility] GI in at bedside Name Value Range Interpretation Code Description Data [facility] rce(s) Supporting Document(s ) ID Date Data Source [id number] 02/19/2019 01:32:08 PM [facility] Pt sent from [facility] for clogged J-t ube Name Value Range Interpretation Code Description Data [facility] rce(s) Supporting Document(s ) ID Date Data Source [id number] 02/19/2019 01:30:56 PM [facility] Report received from Amanda RN, pt rest ing awaiting GI consult & furtherprovider reeval, family at bedside Name Value Range Interpretation Code Description Data Harriett rce(s) Supporting Document(s ) ID Date Data Source [id number] 02/18/2019 11:40:42 AM [facility] Patient discharged from the unit to [place] with ambulance. Clinically andvitally stable at the time of discharge. Name Value Range Interpretation Code Description Data Harriett rce(s) Supporting Document(s ) ID Date Data Source [id number] 02/18/2019 09:39:17 AM [facility] ID Progress Note02/18/2019Subjective:S/p J- tube placement yesterdayAfebrile, no event overnightPatient with MR cathy bradshaw,unable to provide history.Objective:Vitals:Patient Vitals for the past 24 hrs: BP Temp Pulse Resp MyI01702/18/19 0710 119/75 97.5 F (36.4 C) 83 20 98 %02/18/19 0621 126/68 97.8 F (36.6 C) 67 18 98 %02/17/19 2342 109/79 97.8 F (36.6 C) 78 18 94 %02/17/19 2049 102/70 97.5 F (36.4 C) 76 18 93 %02/17 1551 (!) 127/99 97.8 F (36.6 C) 82 23 96 %02/17/19 1327 116/55 98 F (36.7 C) 67 23 92 %02/17/19 1245 - - 69 24 93 %02/17/19 1230 97/44 98 F (36.7 C) 68 25 93 %02/17/19 1215 104/46 - 66 23 94 %02/17/19 1200 91/44 - 67 20 96 % 9 1145 104/60 97.8 F (36.6 C) 71 18 94 %02/17/19 1140 104/60 97.8 F (36.6 C) 74 22 96 %Tmax: Temp (24hrs), Av.8 F (36.6 C), Min:97.5 F (36.4 C), Max:98 F(36.7 C)Physical Exam:General: Awake non verabl cooperative, no distressEyes: Co njunctivae/corneas clear. PERRLNeck: Supple, symmetrical, trachea midline, no adenopa thyLungs: Bilateral breath sounds with basal crackles..Heart: Regular rate and rhythm, S1, S2 normal, no murmurAbdomen: Soft, non-tender. Bowel sounds normal. N o masses, No organomegaly.+j tubeBack: No CVA tenderness.Extremities: No cyanosis, chronic lymphedemaPulses: 2+ and symmetric all extremities.Skin: Skin color, textur e, turgor normal. No rashes or lesionsCurrent Facility-Administered MedicationsMedicat ion Dose Route Frequency methylPREDNISolone (PF) (SOLU-MEDROL) injection 20 mg 20 m g IntraVENous Q12H valproate (DEPACON) 750 mg in 0.9% sodium chloride 50 mL IVPB 7 50 mgIntraVENous Q12H haloperidol lactate (HALDOL) injection 0.5 mg 0.5 mg IntraM USCular Q3H PRN dextrose 5 % - 0.45% NaCl infusion 50 mL/hr IntraVENous CONTINUOU S acetylcysteine (MUCOMYST) 100 mg/mL (10 %) nebulizer solution 400 mg 4 mLNebulizat ion BID RT budesonide (PULMICORT) 500 mcg/2 ml nebulizer suspension 500 mcg Nebuliz ationBID RT albuterol-ipratropium (DUO-NEB) 2.5 MG-0.5 MG/3 ML 3 mL Nebulization Q6 H RT sodium chloride (NS) flush 5-10 mL 5-10 mL IntraVENous PRN cinacalcet (SEN SIPAR) tablet 60 mg 60 mg Oral DAILY lamoTRIgine (LaMICtal) tablet 50 mg 50 mg Per G Tube BID multivitamin (ONE A DAY) tablet 1 Tab 1 Tab Per G Tube DAILY so dium chloride (NS) flush 5-40 mL 5-40 mL IntraVENous Q8H sodium chloride (NS) fl ush 5-40 mL 5-40 mL IntraVENous PRN acetaminophen (TYLENOL) tablet 650 mg 6 50 mg Oral Q4H PRN heparin (porcine) injection 5,000 Units 5,000 Units SubCU TAneous Q12H pantoprazole (PROTONIX) granules for oral suspension 40 mg 40 m g Per NG tubeACB ondansetron (ZOFRAN) injection 4 mg 4 mg IntraVENous Q6H PRN insulin lispro (HUMALOG) injection SubCUTAneous AC&HS dextrose 40% (GLUTOS E) oral gel 1 Tube 15 g Oral PRN glucagon (GLUCAGEN) injection 1 mg 1 mg SubCUTAn eous PRN dextrose (D50) infusion 25 g 50 mL IntraVENous PRNLabs:Recent Labs 25392 02/17/1904WBC 10.1 11.1* 8.1HGB 12.5* 12.7* 12.6*PLT 279 262 261B UN 10 7 11CREA 0.32* 0.28* 0.34*Cultures:Lab ResultsComponent Value Date/Time Culture result: NO GROWTH 5 DAYS 02/08/2019 05:19 PM Culture result: NO GROWTH 5 DAYS 019 05:00 PM Culture result: NO GROWTH 5 DAYS 01/21/2019 11:30 PMRadiology:No results found.Assessment: Aspiration pneumonia Acute COPD exacerbation. Acute respirat ory failure with hypoxia. Dysphagia Atelectasis Plan:1. Completed antibiotic .2. Continue current treatment.Monica Gomez MDNovember 637 AM Name Value Range Interpretation Code Description Data Harriett rce(s) Supporting Document(s ) ID Date Data Source [id number] 02/18/2019 09:36:26 AM EST [facility] Care Management InterventionsPCP Verifie d by CM: (Dr. Hills)Palliative Care Criteria Met (RRAT>21 & CHF Dx)?: NoMode of Trans port at Discharge: BLSTransition of Care Consult (CM Consult): Discharge Planning MyChart Signup: NoDischarge Durable Medical Equipment: NoPhysical Therapy Consult: N oOccupational Therapy Consult: NoSpeech Therapy Consult: NoCurrent Support Netwo rk: Nursing Facility(LTR at [facility])Confirm Follow Up Transport: [facility] (see comment)(ambulance)Plan discussed with Pt/Family/Caregiver: YesFreedom of Choic e Offered: YesVeteran Resource Information Provided?: RefusedDischarge LocationDisc harge Placement: Home(LTR at [facility])Pt discharging back to [facility] today vi a [facility] at 11:30 am. RN kenna. Spoke with pt's HCP Joyce who is aware and agreeable. Spoke with Macho Flores who reports pt is accepted to ret urn and facility is awareof transport time. Feedings updated on YUAN by RNCM and sent to [facility]. Name Value Range Interpretation Code Description Data Harriett rce(s) Supporting Document(s ) ID Date Data Source [id number] 02/18/2019 09:13:31 AM [facility] The YUAN completed. Name Value Range Interpretation Code Description Data Harriett rce(s) Supporting Document(s ) ID Date Data Source [id number] 02/18/2019 08:59:49 AM [facility] Pt is not verbal. Tolerating feeds at 50 ml/hr.Exam: VSSIn NADAbd: soft, NTND, PEG site- no tenderness nor indurationA/P s/ p conversion placement J-tube via PEG- doing well on feeds- continue feeds as tolerat ed- re consult as neededThank You Name Value Range Interpretation Code Description Data [facility] rce(s) Supporting Document(s ) ID Date Data Source [id number] 02/18/2019 08:43:23 AM [facility] RENAL Progress NotePatient: Evelio Shukla hbein Sex: male DOA: 02/08/2019Date of : 1950 Age: 68 y.o. LOS: 10 daysThis is medicine coverage for dr Baum bjective:Patient was seen earlier today. Pt is awake/ non verbal/ hemodynamically st able.J-tube placement , tomorrow. No fever/ chills/ sob/ cp/ n/ v/ d, as per RN.ROS- --- As per RN, unremarkable.Pt is seen forPneumonia right baseAtelectasis LLLCo pdgerdPulmonary embolismMental retardationNew onset hyponatremiaObjective:Visit Vitals BP 119/75 (BP 1 Location: Right arm, BP Patient Position: At rest)Pulse 83Temp 9 7.5 F (36.4 C)Resp 20Ht 5' 2" (1.575 m)Wt 61.2 kg (135 lb)SpO2 98%BMI 24.69 kg/m P hysical Exam: General: WD, thin. awake, cooperative, no acute distress. HEENT: NC, Atraumatic. PERRLA, anicteric sclerae.pink conjunctiva Lungs: B/l ae. No Wheezing/Rhonchi/Rales. He art: Regular rhythm, No murmur, No Rubs, No Gallops.s1,s2 Abdomen: Soft, Non distended, Non tender. +Bowel sounds.pos peg Extremities: No c/c/e. P sych: Not anxious or agitated. Neurologic: No acute neurological defici t. Skin : No rash Neck : Supple, no j vd/ bruitIntake and Output:Intake/Output Summary (Last 24 hours) at 02/18/2019 084 3Last data filed at 02/18/2019 0609Gross per 24 hourIntake 250 mlOutput 2000 mlNet -1 750 mlLab/Data Reviewed:Recent Labs 02/18/1904WB C 10.1 11.1* 8.1HGB 12.5* 12.7* 12.6*PLT 279 262 261BUN 10 7 11CREA 0.32* 0.28* 0.34* NA 134* 133* 135*CL 96* 97* 97*K 4.2 4.0 4.4MG 1.8 1.7 2.0CA 10.0 10.2* 9.5Specia l Requests:Date Value Ref Range Qeygtt1302/08/2019 NO SPECIAL REQUESTS F inalCulture result:Date Value Ref Range Bfveyn6102/08/2019 NO GROWTH 5 DAYS Bessy lXR Results (most recent):Results from Hospital Encounter encounter on 02/08/19 XR CHEST SNGL V Narrative CHEST one viewHISTORY: Followup lung pathology.Com parison is made to previous studies.Accounting for differences in te chnique there has been no significant change ofright basal infiltrate/effusion. There is a poor inspiratory effort and patientrotation towards the right.No oth er interval change is noted. Impression IMPRESSION: No significant change. CXRMedications Reviewed:Current Facility-Administered MedicationsMedicat ion Dose Route Frequency methylPREDNISolone (PF) (SOLU-MEDROL) injection 20 mg 20 m g IntraVENous Q12H valproate (DEPACON) 750 mg in 0.9% sodium chloride 50 mL IVPB 7 50 mgIntraVENous Q12H haloperidol lactate (HALDOL) injection 0.5 mg 0.5 mg IntraM USCular Q3H PRN dextrose 5 % - 0.45% NaCl infusion 50 mL/hr IntraVENous CONTINUOU S acetylcysteine (MUCOMYST) 100 mg/mL (10 %) nebulizer solution 400 mg 4 mLNebulizat ion BID RT budesonide (PULMICORT) 500 mcg/2 ml nebulizer suspension 500 mcg Nebuliz ationBID RT albuterol-ipratropium (DUO-NEB) 2.5 MG-0.5 MG/3 ML 3 mL Nebulization Q6 H RT sodium chloride (NS) flush 5-10 mL 5-10 mL IntraVENous PRN cinacalcet (SEN SIPAR) tablet 60 mg 60 mg Oral DAILY lamoTRIgine (LaMICtal) tablet 50 mg 50 mg Per G Tube BID multivitamin (ONE A DAY) tablet 1 Tab 1 Tab Per G Tube DAILY so dium chloride (NS) flush 5-40 mL 5-40 mL IntraVENous Q8H sodium chloride (NS) fl ush 5-40 mL 5-40 mL IntraVENous PRN acetaminophen (TYLENOL) tablet 650 mg 6 50 mg Oral Q4H PRN heparin (porcine) injection 5,000 Units 5,000 Units SubCU TAneous Q12H pantoprazole (PROTONIX) granules for oral suspension 40 mg 40 m g Per NG tubeACB ondansetron (ZOFRAN) injection 4 mg 4 mg IntraVENous Q6H PRN insulin lispro (HUMALOG) injection SubCUTAneous AC&HS dextrose 40% (GLUTOS E) oral gel 1 Tube 15 g Oral PRN glucagon (GLUCAGEN) injection 1 mg 1 mg SubCUTAn eous PRN dextrose (D50) infusion 25 g 50 mL IntraVENous PRNAssessmentActive Problems : SOB (shortness of breath) (02/08/2019) Pressure injury of right heel, stage 2 ( HCC) (02/09/2019) Leg wound, right, initial encounter (02/09/2019)pneumonia right ba seAtelectasis LLLCopdgerdPulmonary embolismMental retardationDysphagia/ peg Parkinson'shyponatremiaPlan1. Fluid resyriction2. Urine sodium3. U&S osmolal ity4. Bd5. abx6. Hydration7. Labs8. GI f/uContinue current treatment.My assessm ent, plan of care, findings, medications, side effects etc werediscussed with:[X]n ursing [ ]PT/OT[ ]respiratory therapy [ ][ ]family [ ]Rosalio Villalpandojoel Mireya Misty 20189:11 AM Name Value Range Interpretation Code Description Data Harriett rce(s) Supporting Document(s ) ID Date Data Source [id number] 02/18/2019 07:23:10 AM EST [facility] Discharge SummaryPatient: Evelio barlow Sex: male DOA: 02/08/2019Date of : 1950 Age: 68 y.o. LOS: 10 daysAdmit Date: 02/08/2019Discharge Date: 9Discharge Diagnoses:Problem List as of 02/18/2019 Date Reviewed: 02/18/2019 Codes Class Noted - Resolved Pressure injury of right heel, stage 2 (HCC) ICD-10-CM: L89.612ICD-9-CM: 707.07, 707.22 02/09/2019 - Present Leg wound, right, initial encoun ter ICD-10-CM: S81.699MHVA-0-DD: 894.0 02/09/2019 - Present SOB (shortness of b reath) ICD-10-CM: R06.02ICD-9-CM: 786.05 02/08/2019 - Present Acute respiratory f ailure with hypoxia (HCC) ICD-10-CM: J96.01ICD-9-CM: 518.81 01/10/2019 - Pres ent Pneumonia involving right lung ICD-10-CM: J18.9ICD-9-CM: 486 01/10/2019 - Present Hyponatremia ICD-10-CM: E87.1ICD-9-CM: 276.1 01/10/2019 - Present Generalized anxiety disorder (Chronic) ICD-10-CM: F41.1ICD-9-CM: 300.02 12/30/2018 - Present Sepsis due t o undetermined organism (HCC) ICD-10-CM: A41.9ICD-9-CM: 038.9 12/12/2018 - Presen t COPD (chronic obstructive pulmonary disease) (HCC) ICD-10-CM: J44.9ICD-9-CM: 496 11/08/2018 - Present Acute respiratory distress ICD-10-CM: R06.03ICD-9-CM: 518. 82 11/08/2018 - Present Pneumonia ICD-10-CM: J18.9ICD-9-CM: 486 11/08/2018 - Present COPD exacerbation (HCC) ICD-10-CM: J44.1ICD-9-CM: 491.21 11/08/2018 - Prese nt Paraesophageal hiatal hernia ICD-10-CM: K44.9ICD-9-CM: 553.3 09/26/2015 - Presen tDischarge Condition: GoodHospital Course: pt was admitted with aspiration pneumonia, left atelectasis,hyponatremia. Pt was cultured, started on o2/ hydration/ abx. Pt has peg, required J-tube placement. Pt's PEJ in place, functioning.Pt was seen by multiple services, see chart.Consults: Infectious Disease, Internal Medicine an d Pulmonary/Critical CareSignificant Diagnostic Studies: labs, microbiology, and radiologyDischarge Medications:Current Discharge Medication ListSTART taking baldo medications Detailscefepime 2 gram 2 g IVPB 2 g by IntraVENous route every eigh t (8) hours.Qty: 10 Dose, Refills: 0heparin sodium,porcine (HEPARIN, PORCINE,) 5,000 unit/mL injection 1 mL bySubCUTAneous route every twelve (12) hours every twelve (12 ) hours.Qty: 10 mL, Refills: 0pantoprazole (PROTONIX) 40 mg granules for oral suspe nsion 40 mg by Per NG tuberoute Daily (before breakfast).Qty: 30 Each, Refills: 0!! pr edniSONE (DELTASONE) 10 mg tablet Take 20 mg by mouth daily.Qty: 3 Tab, Refills: 0!! predniSONE (DELTASONE) 10 mg tablet Take 10 mg by mouth daily (withbreakfast).Qty: 3 Tab, Refills: 0 !! - Potential duplicate medications found. Please discuss with maximo caldera.CONTINUE these medications which have NOT CHANGED Detailsmultivitamin (MULTI-D ELYN, WELLESSE) liqd 5 mL by Per G Tube route daily.valproic acid, as sodium salt, (DE PAKENE) 250 mg/5 mL (5 mL) soln oral mg by Per G Tube route every twelve (12) hours.acetylcysteine (MUCOMYST) 100 mg/mL (10 %) nebulizer solution Take 4 mL byinhalation two (2) times a day.zinc oxide 10 % topical cream Apply to affec mikel area daily. Ribbon around GTsiteomeprazole (PRILOSEC) 2 mg/mL susp 2 mg/mL oral suspension (compounded) 40 mg byPer G Tube route daily.silver sulfADIA ZINE (SILVADENE) 1 % topical cream Apply to affected area two(2) times a day. 1 inch ribbon- right shincholestyramine-aspartame (QUESTRAN LIGHT) 4 gram packet Take 1 Pa cket by mouthtwo (2) times a day.Qty: 60 Packet, Refills: 1clorazepate (TRANXENE) 3.75 mg tablet 1 Tab by Per G Tube route nightly. MaxDaily Amount: 3.75 mg.Qty: 3 0 Tab, Refills: 5 Associated Diagnoses: Generalized anxiety disordercinacalcet ( SENSIPAR) 30 mg tablet Take 2 Tabs by mouth daily.Qty: 60 Tab, Refills: 5lamoTRIgine (LAMICTAL) 25 mg tablet 2 Tabs by Per G Tube route two (2) times aday.Qty: 60 Tab, Re fills: 5albuterol-ipratropium (DUO-NEB) 2.5 mg-0.5 mg/3 ml nebu 3 mL by Nebulization route every six (6) hours. Every 6 hours while awakeQty: 30 Nebule, Refills: 0bud esonide (PULMICORT) 0.5 mg/2 mL nbsp 2 mL by Nebulization route two (2) timesa day.Qt y: 60 Each, Refills: 0acetaminophen (TYLENOL) 32MG/ML soln solution Take 20.3 mL by la ut every four(4) hours as needed for Pain or Fever.Qty: 250 mL, Refills: 0influenza v accine 2018-, 65 yrs+,,PF, (FLUZONE HIGH-DOSE) syrg injection 0.5mL by Intra MUSCular route PRIOR TO DISCHARGE.Qty: 1 Syringe, Refills: 0bacitracin 500 unit/g escobar ointment Apply 1 Packet to affected area two (2) timesa day. Indications: minor s kin infection due to bacteria, facial scabsQty: 20 Packet, Refills: 0STOP taki ng these medications multivitamin (ONE A DAY) tablet Comments:Reason for Stopping:Acti vity: Activity as toleratedDiet: PEG feeding at 40ml/hr, pulmocare, nutrition consult [facility]charge to:[facility]: Follow up with Ginger Lopez MDNovember 2018 Name Value Range Interpretation Code Description Data [facility] rce(s) Supporting Document(s ) ID Date Data Source [id number] 02/18/2019 07:20:56 AM [facility] Bedside and Verbal shift change report g iven to Carmen Crabtree, RN (oncoming nurse)by Yuki Alonzo RN(offgoing nurse). Re port given with SBAR, Kardex, Intake/Output, MAR and RecentResults. Name Value Range Interpretation Code Description Data [facility] ) ID Date Data Source [id number] 02/18/2019 07:13:01 AM [facility] Progress NotePatient: Evelio Carlin Sex: male DOA: 02/08/2019Date of : 1950 Age: 68 y.o. LOS: 10 daysThis is medicine coverage for dr Baum bjective:Patient was seen earlier today. Pt's J-tube is fuctionning appropriately, as perRN.Pt is awake/ hemodynamically stable. No fever/ chills/ sob/ cp/ n/ v/ d.D/c plan keith in progress.ROS--- Unable to obtain, pt is non verbal.Pt is seen forAspiration p neumonia right baseAtelectasis LLLCopdgerdS/p adjustment pf J-tube.Pulmonary embolismM ental retardationObjective:Visit VitalsBP 126/68 (BP 1 Location: Right arm, BP Pat ient Position: At rest)Pulse 67Temp 97.8 F (36.6 C)Resp 18Ht 5' 2" (1.575 m)Wt 61. 2 kg (135 lb)SpO2 98%BMI 24.69 kg/m Physical Exam: General: WD, thin. awak e, cooperative, no acute distress. HEENT: NC, Atraumatic. PERRLA, anicter ic sclerae.pink conjunctiva Lungs: B/l ae. No Wheezing/Rhonchi/Rales . Heart: Regular rhythm, No murmur, No Rubs, No Gallops.s1,s2 Abdomen: Soft, Non distended, Non tender. +Bowel sounds.pos J-tube Extremities : No c/c/e. Psych: Not anxious or agitated. Neurologic: No acute neur ological deficit. Skin : No rash Neck : Supple, no jvd/ bruitIntake and Output:Intake/Output Summary (Last 24 ho urs) at 02/18/2019 0658Last data filed at 02/18/2019 0609Gross per 24 hourIntake 25 0 mlOutput 2000 mlNet -1750 mlLab/Data Reviewed:Recent Labs 02/17/1904WBC 10.1 11.1* 8.1HGB 12.5* 12.7* 12.6*PLT 279 262 261BUN 10 7 11CREA 0.32* 0.28* 0.34*NA 134* 133* 135*CL 96* 97* 97*K 4.2 4.0 4.4MG 1.8 1.7 2.0CA 10.0 10.2* 9.5Special Requests:Date Value Ref Range Kbbiqz4602/08/2019 NO SPECIAL RE QUESTS FinalCulture result:Date Value Ref Range Fbdtok8202/08/2019 NO GROWTH 5 DAYS FinalXR Results (most recent):Results from Hospital Encounter encounter on 02/08/19 XR CHEST SNGL V Narrative CHEST one viewHISTORY: Followup lung pathology.Com parison is made to previous studies.Accounting for differences in te chnique there has been no significant change ofright basal infiltrate/effusion. There is a poor inspiratory effort and patientrotation towards the right.No oth er interval change is noted. Impression IMPRESSION: No significant change. CXRMedications Reviewed:Current Facility-Administered MedicationsMedicat ion Dose Route Frequency methylPREDNISolone (PF) (SOLU-MEDROL) injection 20 mg 20 m g IntraVENous Q12H valproate (DEPACON) 750 mg in 0.9% sodium chloride 50 mL IVPB 7 50 mgIntraVENous Q12H haloperidol lactate (HALDOL) injection 0.5 mg 0.5 mg IntraM USCular Q3H PRN dextrose 5 % - 0.45% NaCl infusion 50 mL/hr IntraVENous CONTINUOU S acetylcysteine (MUCOMYST) 100 mg/mL (10 %) nebulizer solution 400 mg 4 mLNebulizat ion BID RT budesonide (PULMICORT) 500 mcg/2 ml nebulizer suspension 500 mcg Nebuliz ationBID RT albuterol-ipratropium (DUO-NEB) 2.5 MG-0.5 MG/3 ML 3 mL Nebulization Q6 H RT sodium chloride (NS) flush 5-10 mL 5-10 mL IntraVENous PRN cinacalcet (SEN SIPAR) tablet 60 mg 60 mg Oral DAILY lamoTRIgine (LaMICtal) tablet 50 mg 50 mg Per G Tube BID multivitamin (ONE A DAY) tablet 1 Tab 1 Tab Per G Tube DAILY so dium chloride (NS) flush 5-40 mL 5-40 mL IntraVENous Q8H sodium chloride (NS) fl ush 5-40 mL 5-40 mL IntraVENous PRN acetaminophen (TYLENOL) tablet 650 mg 6 50 mg Oral Q4H PRN heparin (porcine) injection 5,000 Units 5,000 Units SubCU TAneous Q12H pantoprazole (PROTONIX) granules for oral suspension 40 mg 40 m g Per NG tubeACB ondansetron (ZOFRAN) injection 4 mg 4 mg IntraVENous Q6H PRN insulin lispro (HUMALOG) injection SubCUTAneous AC&HS dextrose 40% (GLUTOS E) oral gel 1 Tube 15 g Oral PRN glucagon (GLUCAGEN) injection 1 mg 1 mg SubCUTAn eous PRN dextrose (D50) infusion 25 g 50 mL IntraVENous PRNAssessmentActive Problems : SOB (shortness of breath) (02/08/2019) Pressure injury of right heel, stage 2 ( HCC) (02/09/2019) Leg wound, right, initial encounter (02/09/2019)anemiaHyponatremia S/p PEJ adjustmentAspiration pneumonia right baseAtelectasis LLLCopdgerdPulmonary emb olismMental retardationParkinson'sdysphagiaPlan1. Co ntinue o22. Bd3. abx4. Nutrition5. hydration6. labsContinue current treatme nt.My assessment, plan of care, findings, medications, side effects etc werediscus sed with:[X]nursing [ ]PT/OT[ ]respiratory therapy [ ]Dr.[ ]family [ ]PatientMemorena Lopez MDNovember 20186:58 AM Name Value Range Interpretation Code Description Data [facility] rc(s) Supporting Document(s ) ID Date Data Source [id number] 02/18/2019 04:58:40 AM [facility] Problem: Falls - Risk ofGoal: *Absence o f FallsDescriptionDocument Samra Fall Risk and appropriate interventions in the jhon wsheet.Outcome: Progressing Towards GoalNote:Fall Risk Interventions:Mentati on Interventions: Adequate sleep, hydration, pain control, Bed/chair exitalarm, Door open when patient unattended, More frequent roundingMedication Interventions: Evalua te medications/consider consulting pharmacyElimination Interventions: Call light in reach, Toileting schedule/hourly rounds Name Value Range Interpretation Code Description Data Harriett rce(s) Supporting Document(s ) ID Date Data Source [id number] 02/18/2019 05:50:26 AM [facility] Name Value Range Interpretation Description Data Sup porting Code Source(s) Document(s ) Leukocytes 10.1 4.8-10.6 [facility] - [#/volume] in K/uL Good Blood by Taoist Automated count [facility] Erythrocytes 3.91 4.70-6.0 Below low normal [facility] - [#/volume] in M/uL 0 Good Blood by [facility] Hemoglobin 12.5 14.0-18. Below low normal [facility] - [Mass/volume] in g/dL 0 Good Blood [facility] Hematocrit 38.6 % 42.0-52. Below low normal [facility] - [Volume 0 Good Fraction] of Tao[facility] Blood by Hospital Automated count Erythrocyte mean 98.7 FL 81.0-94. Above high normal [facility] - corpuscular 0 Good volume [Entitic Taoist volume] by Hospital Automated count Erythrocyte mean 32.0 PG 27.0-35. [facility] - corpuscular 0 Good hemoglobin Taoist [Entitic mass] Hospital by Automated count Erythrocyte mean 32.4 30.7-37. [facility] - corpuscular g/dL 3 Good hemoglobin [facility] concentration Hospital [Mass/volume] by Automated count Erythrocyte 16.1 % 11.5-14. Above high normal [facility] - distribution 0 Good width [Ratio] by [facility] Automated count Hospital Platelets 279 K/uL 130-400 [facility] - [#/volume] in Good Blood by [facility] Automated count Hospital Platelet mean 9.7 FL 9.2-11.8 [facility] - volume [Entitic Good volume] in Blood [facility] by Automated Hospital count ID Date Data Source [id number] 02/18/2019 05:32:18 AM EST [facility] Name Value Range Interpretation Description Data Sup porting Code Source(s) Document(s ) Magnesium 1.8 mg/dL 1.6-2.6 [facility] - Good [Mass/volume] Taoist in Serum or Hospital Plasma ID Date Data Source [id number] 02/18/2019 05:32:18 AM EST [facility] Name Value Range Interpretation Description Data Sup porting Code Source(s) Document(s ) Sodium 134 136-145 Below low normal [facility] - Good [Moles/volume] mmol/L Taoist in Serum or Hospital Plasma Potassium 4.2 3.5-5.1 [facility] - Good [Moles/volume] mmol/L Taoist in Serum or Hospital Plasma Chloride 96 98-107 Below low normal [facility] - Good [Moles/volume] mmol/L Taoist in Serum or Hospital Plasma Carbon 34 21-32 Above high normal [facility] - Good dioxide, total mmol/L Taoist [Moles/volume] Hospital in Serum or Plasma Anion gap in 8 mmol/L 10-20 Below low normal [facility] - Go od Serum or Tao[facility] Plasma Hospital Glucose 137 74-106 Above high normal [facility] - Good [Mass/volume] mg/dL Taoist in Serum or Hospital Plasma Urea nitrogen 10 mg/dL 7-18 [facility] - Good [Mass/volume] Taoist in Serum or Hospital Plasma Creatinine 0.32 0.70-1.3 Below low normal [facility] - Good [Mass/volume] mg/dL 0 Taoist in Serum or Hospital Plasma Glomerular >60 [facility] - Good filtration Taoist rate/1.73 sq M Hospital predicted among blacks [Volume Rate/Area] in Serum or Plasma by Creatinine-bas ed formula (MDRD) Glomerular >60 [facility] - Good filtration Taoist rate/1.73 sq M Hospital predicted among non-blacks [Volume Rate/Area] in Serum or Plasma by Creatinine-bas ed formula (MDRD) Calcium 10.0 8.5-10.1 [facility] - Good [Mass/volume] mg/dL Taoist in Serum or Hospital Plasma ID Date Data Source [id number] 02/17/2019 10:13:47 PM EST [facility] Name Value Range Interpretation Description Data Sup porting Code Source(s) Document(s ) Glucose 93 MG/DL 65-110 [facility] - Good [Mass/volume] Taoist in Blood by Hospital Automated test strip ID Date Data Source [id number] 02/17/2019 08:40:22 PM EST [facility] Progress NotePatient: Evelio Carlin Sex: male DOA: 02/08/2019Date of : 1950 Age: 68 y.o. LOS: 9 daysThis is medicine coverage for dr Baum bjective:Patient was seen earlier today. Pt is awake/ non verbal/ hemodynamically st able.Pt's PEJ tube is blocked, will need to be investigated by GI. Pt is going forpr ocedure this AM.No fever/ chills/ sob/ n/ v/ d. Pt is NPO.ROS---- unable to obtain.Pt is seen for1. Aspiration pneumonia right base2. Atelectasis LLL3. Copd4. gerd5. P ulmonary embolism6. Mental retardationObjective:Visit VitalsBP (!) 127/99 (BP 1 Location: Left arm, BP Patient Position: At rest)Pulse 82Temp 97.8 F ( 36.6 C)Resp 23Ht 5' 2" (1.575 m)Wt 61.2 kg (135 lb)SpO2 96%BMI 24.69 kg/m Physical Exam: General: WD, thin. awake, cooperative, no acute distress. HEENT: NC, Atraumatic. PERRLA, anicteric sclerae.pink conjunctiva Elham ngs: B/l ae. No Wheezing/Rhonchi/Rales. Heart: Regular rhythm, No murm ur, No Rubs, No Gallops.s1,s2 Abdomen: Soft, Non distended, Non tender. +Bowel sounds.pej tube inplace Extremities: No c/c/e. Psych: Not anxious or agitated. Neurologic: No acute neurological deficit. Skin : No rash Neck : Supple, no jvd/ bruitIntake and O utput:Intake/Output Summary (Last 24 hours) at 02/17/2019 2030Last data filed at 02/17 1739Gross per 24 hourIntake 200 mlOutput 750 mlNet -550 mlLab/Data Revie wed:Recent Labs 02/17/1904WBC 11.1* 8.1 8.7HGB 12.7* 1 2.6* 13.4*PLT 262 261 287BUN 7 11 12CREA 0.28* 0.34* 0.36*NA 133* 135* 135*CL 97* 97* 98K 4.0 4.4 4.6MG 1.7 2.0 1.9CA 10.2* 9.5 9.3Special Requests:Date Value Ref R raysa Anunym4802/08/2019 NO SPECIAL REQUESTS FinalCulture result:Date Value Ref Range Ctaeyw1602/08/2019 NO GROWTH 5 DAYS FinalXR Results (most recent):Results from Hospi krystian Encounter encounter on 02/08/19XR CHEST SNGL V Narrative CHEST one viewHISTORY: Followup lung pathology.Comparison is made to previous studies.Accounting for differen martine in technique there has been no significant change ofright basal infiltr ate/effusion. There is a poor inspiratory effort and patientrotation towards the r ight.No other interval change is noted. Impression IMPRESSION: No significant ch raysa. CXRMedications Reviewed:Current Facility-Administered MedicationsMedicat ion Dose Route Frequency midazolam (PF) (VERSED) 1 mg/mL injection methylPREDNI Solone (PF) (SOLU-MEDROL) injection 20 mg 20 mg IntraVENous Q12H valproate (DEPACON) 750 mg in 0.9% sodium chloride 50 mL IVPB 750 mgIntraVENous Q12H haloperidol lact ate (HALDOL) injection 0.5 mg 0.5 mg IntraMUSCular Q3H PRN dextrose 5 % - 0. 45% NaCl infusion 50 mL/hr IntraVENous CONTINUOUS acetylcysteine (MUCOMYST) 10 0 mg/mL (10 %) nebulizer solution 400 mg 4 mLNebulization BID RT budesonide (PULMI PRISCILLA) 500 mcg/2 ml nebulizer suspension 500 mcg NebulizationBID RT albuterol-ipratr opium (DUO-NEB) 2.5 MG-0.5 MG/3 ML 3 mL Nebulization Q6H RT sodium chloride (NS ) flush 5-10 mL 5-10 mL IntraVENous PRN cinacalcet (SENSIPAR) tablet 60 mg 60 m g Oral DAILY lamoTRIgine (LaMICtal) tablet 50 mg 50 mg Per G Tube BID multivitami n (ONE A DAY) tablet 1 Tab 1 Tab Per G Tube DAILY sodium chloride (NS) flush 5-40 m L 5-40 mL IntraVENous Q8H sodium chloride (NS) flush 5-40 mL 5-40 mL IntraVENous PRN acetaminophen (TYLENOL) tablet 650 mg 650 mg Oral Q4H PRN heparin (porcine) i njection 5,000 Units 5,000 Units SubCUTAneous Q12H pantoprazole (PROTONI X) granules for oral suspension 40 mg 40 mg Per NG tubeACB ondansetron (ZOFRAN) inj ection 4 mg 4 mg IntraVENous Q6H PRN insulin lispro (HUMALOG) injection Sub CUTAneous AC&HS dextrose 40% (GLUTOSE) oral gel 1 Tube 15 g Oral PRN glucagon (GLU CAGEN) injection 1 mg 1 mg SubCUTAneous PRN dextrose (D50) infusion 25 g 50 mL Intr aVENous PRNAssessmentActive Problems: SOB (shortness of breath) (02/08/2019) Pres sure injury of right heel, stage 2 (HCC) (02/09/2019) Leg wound, right, initial encounter (02/09/2019)LeukocytosisAnemiaAspiration pneumonia right baseAtelectasis LLLCopdgerdPEMental retardationDysphagia Pegparkinson'sPlan1. Continue o22. Bd3. abx4. GI f/u5. Npo6. Hydration7. See ordersCon tinue current treatment.My assessment, plan of care, findings, medications, side eff ects etc werediscussed with:[X]nursing [ ]PT/OT[ ]respiratory therapy [ ][ ]sabrina campbell [ ]José Luis Mariano 20188:30 PM Name Value Range Interpretation Code Description Data Harriett rce(s) Supporting Document(s ) ID Date Data Source [id number] 02/17/2019 07:31:54 PM [facility] Bedside shift change report given to TERESA GARCÍA RN (oncoming nurse) by NASRIN PITTS (offgoing nurse). Report included the following information SBAR,Kardex, ED Summary, Intake/Output, MAR, Recent Resu lts, Med Rec Status andCardiac Rhythm NSR. Name Value Range Interpretation Code Description Data Harriett rce(s) Supporting Document(s ) ID Date Data Source [id number] 02/17/2019 04:58:03 PM EST [facility] Name Value Range Interpretation Description Data Sup porting Code Source(s) Document(s ) Glucose 111 MG/DL 65-110 Above high normal [facility] [Mass/volume] Taoist in Blood by Hospital Automated test strip ID Date Data Source [id number] 02/17/2019 04:29:49 PM EST [facility] ID Progress Note02/17/2019Subjective:S/p J- tube placement todayPatient with MR non verbal,unable to provide history.Afebril eObjective:Vitals:Patient Vitals for the past 24 hrs: BP Temp Pulse Resp JbU82202/17/19 1551 (!) 127/99 97.8 F (36.6 C) 82 23 96 %02/17/19 1327 116/55 98 F (36.7 C) 67 23 92 %02/17/19 1245 - - 69 24 93 %02/17/19 1230 97/44 98 F (36.7 C) 68 25 93 %08/31 1215 104/46 - 66 23 94 %02/17/19 1200 91/44 - 67 20 96 %02/17/19 1145 104/60 9 7.8 F (36.6 C) 71 18 94 %02/17/19 1140 104/60 97.8 F (36.6 C) 74 22 96 %02/17 0806 101/76 98 F (36.7 C) 74 20 94 %02/17/19 0411 109/77 98.1 F (36.7 C) 71 22 92 %02/16/19 2357 124/76 97.8 F (36.6 C) 97 22 96 %02/16/19 1942 122/82 97.5 F (36.4 C) 89 25 94 %Tmax: Temp (24hrs), Av.9 F (36.6 C), Min:97.5 F (36.4 C), Max:98.1 F(36.7 C)Physical Exam:General: Awake non verabl cooperat britni, no distressEyes: Conjunctivae/corneas clear. PERRLNeck: Supple, symmetrical, t rachea midline, no adenopathyLungs: Bilateral breath sounds with basal crack les..Heart: Regular rate and rhythm, S1, S2 normal, no murmurAbdomen: Soft, non-te nder. Bowel sounds normal. No masses, No organomegaly.+j tubeBack: No CVA tende rness.Extremities: No cyanosis,chronic lymphedemaPulses: 2+ and symmetric all e xtremities.Skin: Skin color, texture, turgor normal. No rashes or lesionsCurrent Faci lity-Administered MedicationsMedication Dose Route Frequency midazolam (PF) (VERSED) 1 mg/mL injection methylPREDNISolone (PF) (SOLU-MEDROL) injection 20 mg 20 mg Int raVENous Q12H valproate (DEPACON) 750 mg in 0.9% sodium chloride 50 mL IVPB 750 mgI ntraVENous Q12H haloperidol lactate (HALDOL) injection 0.5 mg 0.5 mg IntraMUSCular Q 3H PRN dextrose 5 % - 0.45% NaCl infusion 50 mL/hr IntraVENous CONTINUOUS acetylc ysteine (MUCOMYST) 100 mg/mL (10 %) nebulizer solution 400 mg 4 mLNebulization BID RT budesonide (PULMICORT) 500 mcg/2 ml nebulizer suspension 500 mcg Nebulizati onBID RT albuterol-ipratropium (DUO- NEB) 2.5 MG-0.5 MG/3 ML 3 mL Nebulization Q6H RT sodium chloride (NS) flush 5-10 mL 5- 10 mL IntraVENous PRN cinacalcet (SENSIPAR) t ablet 60 mg 60 mg Oral DAILY lamoTRIgine (LaMICtal) tablet 50 mg 50 mg Per G Tub e BID multivitamin (ONE A DAY) tablet 1 Tab 1 Tab Per G Tube DAILY sodium chloride (NS) flush 5-40 mL 5-40 mL IntraVENous Q8H sodium chloride (NS) flush 5-40 mL 5-40 mL IntraVENous PRN acetaminophen (TYLENOL) tablet 650 mg 650 mg Oral Q4H PRN hepa rin (porcine) injection 5,000 Units 5,000 Units SubCUTAneous Q12H pantoprazole (P ROTONIX) granules for oral suspension 40 mg 40 mg Per NG tubeACB ondansetron (ZOFRA N) injection 4 mg 4 mg IntraVENous Q6H PRN insulin lispro (HUMALOG) injection Sub CUTAneous AC&HS dextrose 40% (GLUTOSE) oral gel 1 Tube 15 g Oral PRN glucagon (GLUCAGEN) injection 1 mg 1 mg SubCUTAneous PRN dextrose (D50) infusion 25 g 50 mL IntraVENous PRNLabs:Recent Labs 02/17/1904WB C 11.1* 8.1 8.7HGB 12.7* 12.6* 13.4*PLT 262 261 287BUN 7 11 12CREA 0.28* 0.34* 0.36* Cultures:Lab ResultsComponent Value Date/Time Culture result: NO GROWTH 5 DAYS 019 05:19 PM Culture result: NO GROWTH 5 DAYS 02/08/2019 05:00 PM Culture result: NO G ROWTH 5 DAYS 01/21/2019 11:30 PMRadiology:No results found.Assessment: Aspiration pn eumonia Acute COPD exacerbation. Acute respiratory failure with hypoxia. Dysph agia Atelectasis Plan:1. Completed antibiotic.2. Continue current treatment .Natasha Dudley MDNovember 20184: 25 PM Name Value Range Interpretation Code Description Data Harriett rce(s) Supporting Document(s ) ID Date Data Source [id number] 02/17/2019 02:43:29 PM EST [facility] Problem: Nutrition DeficitGoal: *Optimiz e nutritional statusDescriptionPt to progress towards meeting >80% estimated needs wit hin 3-7 daysOutcome: Progressing Towards GoalAdvance Pulmocare as tolerated to go al rate of 55 mL/hr (1980 kcal, 83 gm pro,140 gm CHO, 123 gm fat, 1036 mL free water), with 85 mL free water flush q 3 hr,as needed if no IVF Name Value Range Interpretation Code Description Data Harriett rce(s) Supporting Document(s ) ID Date Data Source [id number] 02/17/2019 02:42:51 PM EST [facility] NUTRITIONFollow Up NoteSubjective: Pt nelson d G to J tube conversion 02/16; refastened this am aftercomplication with flushing overnight. EN to be restarted at 30 mL/hr.Nutrition Rx: Pulmocare at 30 mL/h r, advance 10 mL/hr q 8 hr, goal rate 50 mL/hrLabs: POC glu 85, 82 Na 133 Glu 70 Creat 0.28Medications reviewed. Receiving Solu-Medrol.Skin: Per WOCN: Right leg w ound, limited to skin level POARight heel stage 2 pressure injury POATrace LLE, 1+ RLE edemaGI: +J-tube, last BM 02/13Weight: 61.2 kg (no wt documented since 02/11)Nu trition Diagnosis: remains the same (Increased protein and energy needs)Adva nce Pulmocare as tolerated to goal rate of 55 mL/hr (1980 kcal, 83 gm pro,140 gm CHO, 123 gm fat, 1036 mL free water), with 85 mL free water flush q 3 hr,as needed if no IVFWill continue to monitor EN, GI status.Discharge Planning: EN as recomme ndedAlexa Justin Correa RD Name Value Range Interpretation Code Description Data Harriett rce(s) Supporting Document(s ) ID Date Data Source [id number] 02/17/2019 01:11:54 PM EST [facility] Name Value Range Interpretation Description Data Sup porting Code Source(s) Document(s ) Glucose 85 MG/DL 65-110 [facility] [Mass/volume] Taoist in Blood by Hospital Automated test strip ID Date Data Source [id number] 02/17/2019 12:35:56 PM EST [facility] TRANSFER - OUT REPORT:Verbal report give n to Vivek PITTS(name) on [facility] being transferredto [address] [place] [address](unit) for ro utine progression of careReport consisted of patient's Situation, Background, Assessm ent andRecommendations(SBAR).Information from the following report(s) SBAR, Procedure Summary, Intake/Output,MAR and Cardiac Rhythm SR was reviewed with the receiving nurse .Lines:Peripheral IV 02/13/19 Right Forearm (Active)Site Assessment Clean, dry, & in tact 02/17/2019 11:40 AMPhlebitis Assessment 0 02/17/2019 11:40 AMInfiltration Assessmen t 0 02/17/2019 11:40 AMDressing Status Clean, dry, & intact 02/17/2019 11:40 AMDres sing Type Transparent 02/17/2019 11:40 AMHub Color/Line Status Blue 02/17/2019 11:40 A MAction Taken Open ports on tubing capped 02/17/2019 7:45 AMAlcohol Cap Used Yes 1 04/19/2018 11:40 AMOpportunity for questions and clarification was provided.Patient t ransported with: MonitorO2 @ 2 litersRegistered NurseTech Name Value Range Interpretation Code Description Data Harriett rce(s) Supporting Document(s ) ID Date Data Source [id number] 02/17/2019 12:33:18 PM EST [facility] TRANSFER - IN REPORT:Verbal report recei nathaly from rylie PITTS(name) on [facility] beingreceived from [facility](u nit) for routine progression of careReport consisted of patient's Situation, Backgr ound, Assessment andRecommendations(SBAR).Information fro m the following report(s) SBAR, OR Summary, Procedure Summary,MAR and Med Rec Status was reviewed with the receiving nurse.Opportunity for questions and clar ification was provided.Assessment completed upon patient's arrival to unit and care assumed. Name Value Range Interpretation Code Description Data [facility] rce(s) Supporting Document(s ) ID Date Data Source [id number] 02/17/2019 11:51:49 AM [facility] 1140 Pt received via bed from endoscopy, anesthesia in attendance. Monitor SR.Abdomen soft with PEG and binder in place, dress ing dry and intact. O2 at [address]. Name Value Range Interpretation Code Description Data [facility] rce(s) Supporting Document(s ) ID Date Data Source [id number] 02/17/2019 11:48:51 AM [facility] PULMONARY/ CCM- Consult NotePatient: Ivelisse Carlin Sex: male DOA: 02/08/2019Date of : [birth year] Age: 68 y.o. LOS: LOS: 9 daysHPI: step down.Evelio Carlin is a 68 y.o. 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 Authorizing Providercefepime 2 g escobar 2 g IVPB 2 g by IntraVENous route every eight (8) hours.02/12/19 Yes Christos Lopez MDheparin sodium,porcine (HEPARIN, PORCINE,) 5,000 unit/mL injection 1 mL b ySubCUTAneous route every twelve (12) hours every twelve (12) hours. 02/12/19Yes Christos Gilbert MDpantoprazole (PROTONIX) 40 mg granules for oral suspension 40 mg by Pe r NG tigree Daily (before breakfast). 02/13/19 Yes Christos Lopez, MDpredniSO NE (DELTASONE) 10 mg tablet Take 20 mg by mouth daily. 02/12/19 YesLeisa Lopez r, MDpredniSONE (DELTASONE) 10 mg tablet Take 10 mg by mouth daily (with breakfast). Yes Christos Lopez, MDmultivitamin (MULTI-DELYN, WELLESSE) liqd 5 mL by Per G Tube route daily. YesProvider, Historicalvalproic acid, as sodium salt, (DEPAKENE) 250 mg/5 mL (5 mL) soln oral [id number] mg by Per G Tube route every twelve (12) hours. Yes Provider, Historicalacetylcysteine (MUCOMYST) 100 mg/mL (10 %) nebulizer solution Take 4 mL byinhalation two (2) times a day. Yes Provider, Historicalzinc oxide 10 % topical cream Apply to affected area daily. Rib bon around GTsite Yes Provider, Historicalomeprazole (PRILOSEC) 2 mg/mL susp 2 mg/mL oral suspension (compounded) 40 mg byPer G Tube route daily. Yes Provi bassem, Historicalsilver sulfADIAZINE (SILVADENE) 1 % topical cream Apply to affected area two(2) times a day. 1 inch ribbon- right edge Yes Provider, Histo ricalcholestyramine-aspartame (QUESTRAN LIGHT) 4 gram packet Take 1 Packet by mo uthtwo (2) times a day.Patient taking differently: 4 g two (2) times a day. Vi a G tube. 01/24/19 YesMili Hills DOclorazepate (TRANXENE) 3.75 mg tablet 1 Tab by Per G Tube route nightly. MaxDaily Amount: 3.75 mg. 12/30/18 Yes Maryam Hills DOcinacalcet (SENSIPAR) 30 mg tablet Take 2 Tabs by mouth daily.Patient takin g differently: 60 mg daily. Via G tube 12/30/18 Yes Mili Hills DOlamoTRIgi ne (LAMICTAL) 25 mg tablet 2 Tabs by Per G Tube route two (2) times aday. 12/30/18 Yes Mili Hills DOalbuterol-ipratropium (DUO-NEB) 2.5 mg-0.5 mg/3 ml nebu 3 mL b y Nebulizationroute every six (6) hours. Every 6 hours while awake 12/30/18 Yes Mili Brooks DObudesonide (PULMICORT) 0.5 mg/2 mL nbsp 2 mL by Nebulization route two (2) timesa day. 12/30/18 Yes Mili Hills DOacetaminophen (TYLENOL) 32MG/ ML soln solution Take 20.3 mL by mouth every four(4) hours as needed for Pain or Feve r. 01/24/19 Mili Hills DOinfluenza vaccine 2019-, 65 yrs+,,PF, (FLUZONE H IGH-DOSE) syrg injection 0.5mL by IntraMUSCular route PRIOR TO DISCHARGE. 01/24/19 Mili Hills DObacitracin 500 unit/gram ointment Apply 1 Packet to aff ected area two (2) timesa day. Indications: minor skin infection due to bacteria, fa cial scabs 12/30/18Mili Hills DONo Known AllergiesPast Surgical History:Procedure Laterality Date HX GASTROSTOMY PEG- replaced 11/2018History reviewed. No pert inent family history.Social HistorySocioeconomic History Marital st atus: SINGLE Spouse name: Not on file Number of children: Not on file Years o f education: Not on file Highest education level: Not on fileTobacco Use Smoking s tatus: Never Smoker Smokeless tobacco: Never UsedSubstance and Sexual Activity Alcoh ol use: No Drug use: NoReview of SystemsPertinent items are noted in the History of Present Illness.Physical Exam:Current medications:Current Facilit y-Administered Medications: midazolam (PF) (VERSED) 1 mg/mL injection, , , , meth ylPREDNISolone (PF) (SOLU-MEDROL) injection 20 mg, 20 mg, IntraVENous,Q12H, Krystian Monae MD, 20 mg at 02/17/19 0941 valproate (DEPACON) 750 mg in 0.9% sodium chloride 50 mL IVPB, 750 mg,IntraVENous, Q12H, Christos Lopez MD, Last Rate: 50 mL/hr at 02/17/1915,750 mg at 02/17/1915 haloperidol lactate (HALDOL) injection 0 .5 mg, 0.5 mg, IntraMUSCular, Q3HPRN, Christos Lopez MD dextrose 5 % - 0.4 5% NaCl infusion, 50 mL/hr, IntraVENous, CONTINUOUS,Christos Lopez MD, Last Rat e: 50 mL/hr at 02/16/196, 50 mL/hr at 156 acetylcysteine (MUCOMYST) 100 mg/mL (10 %) nebulizer solution 400 mg, 4 mL,Nebulization, BID RT, Me morena Lopez MD, 400 mg at 02/17/19 0825 budesonide (PULMICORT) 500 mcg/2 ml nebulizer suspe nsion, 500 mcg,Nebulization, BID RT, Christos Lopez MD, 500 mcg at 02/17/19 0825 albuterol-ipratropium (DUO-NEB) 2.5 MG-0.5 MG/3 ML, 3 mL, Nebulization, Q6HR T, Stella Hamilton MD, 3 mL at 02/17/19 08 sodium chloride (NS) flush 5-10 mL, 5-1 0 mL, IntraVENous, PRN, Chay Palma MD cinacalcet (SENSIPAR) tablet 60 mg, 60 mg, Oral, DAILY, Latrell Palma MD, 60 mg at 02/17/1941 la moTRIgine (LaMICtal) tablet 50 mg, 50 mg, Per G Tube, BID, Chay Palma MD, 50 mg at 02/17/1940 multivitamin (ONE A DAY) tablet 1 Tab, 1 Tab, Per G Tube, DA PIERRE,Chay Palma MD, 1 Tab at 02/17/1941 sodium chloride (NS) flu sh 5-40 mL, 5-40 mL, IntraVENous, Q8H, Chay Palma MD, 10 mL at 08/018 sodium chloride (NS) flush 5-40 mL, 5-40 mL, IntraVENous, PRN, Chay Wiley MD, 10 mL at 02/11/19 1400 acetaminophen (TYLENOL) tablet 650 mg, 6 50 mg, Oral, Q4H PRN, Chay Flores MD, 650 mg at 02/09/19 2239 heparin (p orcine) injection 5,000 Units, 5,000 Units, SubCUTAneous, Q12H,Chay Palma MD, 5,000 Units at 02/16/19 2235 pantoprazole (PROTONIX) granules for ora l suspension 40 mg, 40 mg, Per NGtube, ACB, Chay Palma MD, 40 mg at 0941 ondansetron (ZOFRAN) injection 4 mg, 4 mg, IntraVENous, Q6H PRN,Chay Flores MD insulin lispro (HUMALOG) injection, , SubCUTAneous, AC& HS, Chay Palma MD, Stopped at 02/15/19 1630 dextrose 40% (GLUTOSE) o ral gel 1 Tube, 15 g, Oral, PRN, Chay Palma MD glucagon (G LUCAGEN) injection 1 mg, 1 mg, SubCUTAneous, PRN, Chay Palma MD dextro se (D50) infusion 25 g, 50 mL, IntraVENous, PRN, Latrell Palma MDDataVisit VitalsBP 104/60Pulse 71Temp 97.8 F (36.6 C)Resp 18Ht 5' 2" (1.575 m)Wt 61.2 kg (1 35 lb)SpO2 94%BMI 24.69 kg/m Intake and Output:Date 02/16/19699 - 02/17/19 06 9 02/17/19699 - 02/18/19 0659Shift 4656-8615 5973-2444 24 Hour Total 0700-1 859 4770-4223 24 Hour TotalINTAKEI.V.(mL/kg/hr) 500(0.7) 500( 0.3) 100 100 I.V. 500 500 50 50 Volume (lactated Ringers infusion) 50 50Shi ft Total(mL/kg) 500(8.2) 500(8.2) 100(1.6) 100(1.6)OUTPUTUrine(mL/kg/hr) 400(0.5) 400(0.3) Urine Voided 400 400Other 1800 1800 Other Output 1800 1800Blood 0 0 0 0 Estimated Blood Loss 0 0 0 0Shift Total(mL/kg) 2200(35.9) 2200(35.9) 0(0) 0(0)NET -1700 -1700 100 100Weight (kg) 61.2 61.2 61.2 61.2 61.2 61.2Pulse OX:Sp O2 Readings from Last 6 Encounters:02/17/19 94%01/24/19 93%12/30/18 96%11/27/18 91%0 09/26/15 96%@LASTSAO2(6)@PHYSICAL EXAM:General: Lethargic,responding.He ad: Normocephalic, without obvious abnormality, atraumatic.Eyes: Conjunct ivae clear, anicteric sclerae. Pupils are equalNose: Nares normal. No drainage or sinus tenderness.Throat: Lips, mucosa, and tongue normal. No ThrushNeck: Supp le, symmetrical, no adenopathy, thyroid: non tender no carotid bruit and no JVD.Back : Symmetric, No CVA tenderness.Lungs: Scattered rhonchi,Chest wall: No tender ness or deformity. No Accessory muscle use.Heart: Regular rate and rhythm, n o murmur, rub or gallop.Abdomen: Soft, non-tender. Not distended. Bowel sounds normal. No massesExtremities: Extremities normal, atraumatic, No cyanosis. No deepthi ma. No clubbingSkin: Texture, turgor normal. No rashes or lesions. Not Jaund icedLymph nodes: Cervical, supraclavicular normal.Psych: Good insight. Not depres sed. Not anxious or agitated.Neurologic: EOMs intact. No facial asymmetry. No aph greg or slurred speech.Most recent labs:Recent Labs 445 WBC 11.1* 8.1 8.7HGB 12.7* 12.6* 13.4*HCT 39.9* 39.9* 42.4PLT 262 2 61 287Recent Labs 02/17/1904NA 133* 135* 135*K 4.0 4.4 4 .6CL 97* 97* 98CO2 34* 37* 37*GLU 70* 90 118*BUN 7 11 12CREA 0.28* 0.34* 0.36*CA 10.2* 9.5 9.3MG 1.7 2.0 1.9PHOS -- 2.9 --ALB -- 2.3* --INR -- -- 1.1No r esults for input(s): PH, PCO2, PO2, HCO3, FIO2 in the last 72 hours.ABG:No results for input(s): PH, PCO2, PO2, HCO3, FIO2 in the last 72 hours.Cultures:No results fo und for: SDESLab ResultsComponent Value Date/Time Culture result: NO GROWTH 5 DA YS 02/08/2019 05:19 PM Culture result: NO GROWTH 5 DAYS 02/08/2019 05:00 PM Cultur e result: NO GROWTH 5 DAYS 01/21/2019 11:30 PM Culture result: NO GROWTH 2 DAYS 12/2018 11:15 PM Culture result: NO GROWTH 5 DAYS 01/21/2019 11:00 PM Culture result: NO GROWTH 1 DAY 01/10/2019 08:58 AM Culture result: NO GROWTH 5 DAYS 01/10/2019 07:5 5 AM Culture result: NO GROWTH 5 DAYS 01/10/2019 07:40 AM Culture result: NO G ROWTH 5 DAYS 12/29/2018 11:23 AM Culture result: NO GROWTH 5 DAYS 12/29/2018 11:0 0 AM Culture result: 10,000 to 50,000 COLONIES/mL KLEBSIELLA PNEUMONIAE (A) 11:00 AM Culture result: 50,000-100,000 COLONIES/mL PSEUDOMONAS A ERUGINOSA (A)12/29/2018 11:00 AM Culture result: (A) 12/29/2018 11:00 AM 10,000 to 50,000 COLONIES/mL STAPHYLOCOCCUS EPIDERMIDIS Culture result: NO GROWTH 2 DAYS 12/24/2018 09:45 AM Culture result: NO GROWTH 5 DAYS 12/23/2018 12:00 PM Cultur e result: NO GROWTH 5 DAYS 12/23/2018 11:40 AM Culture result: NO GROWTH 4 DAYS 09/2018 12:30 PM Culture result: NO GROWTH 4 DAYS 12/19/2018 12:30 PM Culture result: NO GROWTH 1 DAY 12/12/2018 08:04 PM Culture result: NO GROWTH 5 DAYS 12/12/2018 07:4 0 PM Culture result: NO GROWTH 5 DAYS 12/12/2018 07:40 PM Culture result: NO G ROWTH 2 DAYS 11/20/2018 09:00 AM Culture result: NO GROWTH 5 DAYS 11/07/2018 08:1 0 PM Culture result: NO GROWTH 5 DAYS 11/07/2018 08:00 PMImages:Cta Chest W Or W Wo ContResult Date: 11/08/2018Examination: CTA Chest ? PE angiography History: Hypo magdy; rule out pneumoniaversus pulmonary embolism Priors: None Technique: Low-d ose, multiplanar,helical CTA chest was performed with bolus IV injection from lung apices tobases. 3D-reformatted images were obtained and reviewed on a [employer] d viewingworkstation and directly supervised. Contrast: A total of 71 mL of Isovue-370 was administered intravenously for this procedure. Findings: No evidence ofpulmo nary embolism is seen. There is decreased size of the right hemithorax fromchronic scarring and retraction with mediastinal shift left to right.Additional area of c onsolidation is seen in the right lower lobe and suggestssuperimposed pneumonia with subsegmental atelectasis. Subsegmental atelectasisis also noted in the left jorge g base, with pleural parenchymal scarring. Lowlung volumes are seen. No pneumothora x seen. Aorta normal in caliber withoutaneurysm or dissection. Mediastin um no adenopathy. Mediastinal shift is seen inthe left and right as a result of chr onic changes in the right hemithorax.Heart shows no chamber enlargement or pericard ial effusion. No acute fracturesseen in the bony thorax, sternum, manubrium and rib cage. Multiple compressiondeformities are seen in the mid and lower thoracic spine , with superimposedspondyloarthropathy. Cannot exclude acute fracture.Impression : No evidence of pulmonary embolism Right lower lobe pneumoniasuggested. Incidenta l scarring and retraction in the right hemithorax fromremote/chronic inflammato ry disease and/or trauma. Bibasilar subsegmentalatelectasis. Report Electron ically Signed By: Pawel Zafar M.D. -11/08/2018 12:40 AMXr Chest PortResult D ate: 11/07/2018XR CHEST PORT CLINICAL INDICATION PROVIDED:. "sob." COMPARISON: . 09/26/2015.FINDINGS:. The pericardial/cardiac silhouette is enlarg ed in the transversedimension. There is no pulmonary vascular congestion or interst itial edema.Linear density in the left lung base and faint densities in the right mi d tolower lung likely represent atelectasis. There is no lobar consolidation oreffusi on. There is no pneumothorax.IMPRESSION:. Bilateral lower lung atelectasis. No donna dence of consolidation oreffusion.Assessment/PlanActive Problem s: SOB (shortness of breath) (02/08/2019) Pressure injury of right heel, stage 2 ( HCC) (02/09/2019) Leg wound, right, initial encounter (02/09/2019) Acute resp failur e combined better. pneumonia acute copd exacerbationPLAN,Monitoring,bipap prn fo r resp distress,abx as per id.Steroid nebbipap prn and at night.NebGi /dvt pro phylaxis.D/w nursing staff.Stella Hamilton MDNov2018The billing code submi tted in association with this evaluation also includes thetime to review patient's yuan or records, communicate with the physician team,obtain corroborating data, and disc uss the risk and benefits of the proposedmanagement plan with the patient and their family >25 minutes. Name Value Range Interpretation Code Description Data Harriett rce(s) Supporting Document(s ) ID Date Data Source [id number] 02/17/2019 11:32:03 AM EST [facility] BRIEF OPERATIVE NOTEDate of Procedure: 1 04/19/2018Preoperative Diagnosis: PEG complicationPostoperative Diagnosis: PEG complicationProcedure(s):ESOPHAGOGASTROD UODENOSCOPY (EGD)Surgeon(s) and Role: * Darryl Harrison MD - PrimarySurgical A ssistant: noneSurgical Staff:steward/stewardess club car-1: Ingris Chin, RN; Ysabel Troncoso RNNo case tracking events are documented in the log.Anesthesia: MACEst imated Blood Loss: noneSpecimens: * No specimens in log *Findings: the j tube w as in place- tube was repositioned by un hooking from GTand pullng back after whi ch time the tube flushed perfectly; the j tube was refastened to GT again flushing well. Endoscopically the tip was still in jejunum.Procedure terminated. J- tube is OK to useComplications: noneImplants: * No implants in log * Name Value Range Interpretation Code Description Data Harriett rce(s) Supporting Document(s ) ID Date Data Source [id number] 02/17/2019 10:24:49 AM [facility] TRANSFER - IN REPORT:[facility] for ordered proced ureReport consisted of patient's Situation, Background, Assessment andRecommendation s(SBAR).Information from the following report(s) SBAR and MAR was reviewed with thereceiving nurse.Opportunity for questions and clarification was provided.Assessmen t completed upon patient's arrival to unit and care assumed. Name Value Range Interpretation Code Description Data Harriett rce(s) Supporting Document(s ) ID Date Data Source [id number] 02/17/2019 10:22:47 AM [facility] Relevant ProblemsNo relevant active prob lemsAnesthetic HistoryNo history of anesthetic complicationsReview of System s / Medical HistoryPatient summary reviewed, nursing notes reviewed and pertinent lab s reviewedPulmonaryCOPD: mild Neuro/PsychPsychiatric history Cardiovas cularWithin defined limitsGI/Hepatic/RenalGERD: well control led Endo/OtherWithin defined limits Other FindingsPhysical ExamAirwayMallampati: I ITM Distance: 4 - 6 cmNeck ROM: normal range of motionMouth opening: Normal Cardiovas cularRhythm: regularRate: normal DentalNo notable dental hxPulmonaryBreath sounds clear to auscultation AbdominalGI exam deferred Other FindingsAnesthetic Jeffrey A: 3Anesthesia type: MACInduction: IntravenousAnesthetic plan and risks dis cussed with: Patient Name Value Range Interpretation Code Description Data [facility] rce(s) Supporting Document(s ) ID Date Data Source [id number] 02/17/2019 09:17:25 AM EST [facility] Yohana had jtube placed through GT an d secured into jejunum. Exam wasuncomplicated however jtube port unable to flush last night or today. GT port isworking normally. I tried to place cleaning brush through JT without any successin getting the J- tube working.Either the tube clogged (though it was never used), kinked, or has a defect inthat it is not totally patent.Would pl an for attempted removal of JT and replace,emt today. Call placed tofamily. Name Value Range Interpretation Code Description Data [facility] rce(s) Supporting Document(s ) ID Date Data Source [id number] 02/17/2019 08:17:43 AM [facility] Name Value Range Interpretation Description Data Sup porting Code Source(s) Document(s ) Glucose 82 MG/DL 65-110 [facility] [Mass/volume] Taoist in Blood by [facility] Automated test strip ID Date Data Source [id number] 02/17/2019 07:36:32 AM [facility] Bedside and Verbal shift change report carol pham to Manpreet Doyle RN (oncomingnurse) by Josh Weiner RN(offgoing nurse). Report given with SBAR, Kardex, Intake/Output, MAR and RecentResults. Name Value Range Interpretation Code Description Data [facility] rce(s) Supporting Document(s ) ID Date Data Source [id number] 02/17/2019 06:10:38 AM [facility] Name Value Range Interpretation Description Data Sup porting Code Source(s) Document(s ) Leukocytes 11.1 4.8-10.6 Above high normal [facility] - [#/volume] in K/uL Good Blood by Taoist Automated count [facility] Erythrocytes 3.98 4.70-6.0 Below low normal [facility] - [#/volume] in M/uL 0 Good Blood by [facility] Automated count Hospital Hemoglobin 12.7 14.0-18. Below low normal [facility] - [Mass/volume] in g/dL 0 Good Blood [facility] Hematocrit 39.9 % 42.0-52. Below low normal [facility] - [Volume 0 Good Fraction] of Taoist Blood by Hospital Automated count Erythrocyte mean 100.3 FL 81.0-94. Above high normal [facility] - corpuscular 0 Good volume [Entitic Taoist volume] by Hospital Automated count Erythrocyte mean 31.9 PG 27.0-35. [facility] - corpuscular 0 Good hemoglobin [facility]ist [Entitic mass] Hospital by Automated count Erythrocyte mean 31.8 30.7-37. [facility] - corpuscular g/dL 3 Good hemoglobin [facility] concentration Hospital [Mass/volume] by Automated count Erythrocyte 16.1 % 11.5-14. Above high normal [facility] - distribution 0 Good width [Ratio] by [facility] Automated count Hospital Platelets 262 K/uL 130-400 [facility] - [#/volume] in Good Blood by [facility]ist Automated count [facility] Platelet mean 9.3 FL 9.2-11.8 [facility] - volume [Entitic Good volume] in Blood Taoist by Automated Hospital count ID Date Data Source [id number] 02/17/2019 05:24:17 AM EST [facility] Name Value Range Interpretation Description Data Sup porting Code Source(s) Document(s ) Magnesium 1.7 mg/dL 1.6-2.6 [facility] Good [Mass/volume] Tao[facility] in Serum or Hospital Plasma ID Date Data Source [id number] 02/17/2019 05:24:17 AM EST [facility] Name Value Range Interpretation Description Data Sup porting Code Source(s) Document(s ) Sodium 133 136-145 Below low normal [facility] Good [Moles/volume] mmol/L [facility]ist in Serum or Hospital Plasma Potassium 4.0 3.5-5.1 [facility] [Moles/volume] mmol/L Taoist in Serum or Hospital Plasma Chloride 97 98-107 Below low normal [facility] - Good [Moles/volume] mmol/L [facility]ist in Serum or Hospital Plasma Carbon 34 21-32 Above high normal [facility] - Good dioxide, total mmol/L Taoist [Moles/volume] Hospital in Serum or Plasma Anion gap in 6 mmol/L 10-20 Below low normal [facility] - Go od Serum or Taoist Plasma Hospital Glucose 70 mg/dL 74-106 Below low normal [facility] - Good [Mass/volume] Taoist in Serum or Hospital Plasma Urea nitrogen 7 mg/dL 7-18 [facility] [Mass/volume] Taoist in Serum or Hospital Plasma Creatinine 0.28 0.70-1.3 Below low normal [facility] - Good [Mass/volume] mg/dL 0 Taoist in Serum or Hospital Plasma Glomerular >60 [facility] - Good filtration Taoist rate/1.73 sq M Hospital predicted among blacks [Volume Rate/Area] in Serum or Plasma by Creatinine-bas ed formula (MDRD) Glomerular >60 [facility] - Good filtration Taoist rate/1.73 sq M Hospital predicted among non-blacks [Volume Rate/Area] in Serum or Plasma by Creatinine-bas ed formula (MDRD) Calcium 10.2 8.5-10.1 Above high normal [facility] - Good [Mass/volume] mg/dL Taoist in Serum or Hospital Plasma ID Date Data Source [id number] 02/16/2019 10:52:44 PM EST [facility] Name Value Range Interpretation Description Data Sup porting Code Source(s) Document(s ) Glucose 103 MG/DL 65-110 [facility] [Mass/volume] Taoist in Blood by Hospital Automated test strip ID Date Data Source [id number] 02/16/2019 07:59:36 PM EST [facility] Progress NotePatient: Evelio Carlin Sex: male DOA: 02/08/2019Date of : 1950 Age: 68 y.o. LOS: 8 daysThis is medicine coverage for dr Baum bjective:Patient was seen earlier today. Pt is awake/ non verbal/ hemodynamically st able.Pt is scheduled for PEJ placement. No fever/ chills/ sob/ n/v/d.ROS--- unremar kable as per RN.Pt is seen forAspiration pneumonia right baseAtelectasis LLLCopdg erdPulmonary embolismMental retardationObjective:Visit VitalsBP 98/5 2Pulse 97Temp 97.4 F (36.3 C)Resp (!) 36Ht 5' 2" (1.575 m)Wt 61.2 kg (135 lb)SpO2 9 3%BMI 24.69 kg/m Physical Exam: General: WD, thin. awake, cooperative, no acute distress. HEENT: NC, Atraumatic. PERRLA, anicteric sclerae.p ink conjunctiva Lungs: B/l ae. No Wheezing/Rhonchi/Rales. Heart: Regular rhythm, No murmur, No Rubs, No Gallops.s1,s2 Abdomen: Soft, N on distended, Non tender. +Bowel sounds.pos peg Extremities: No c/c/e. Psych: Not anxious or agitated. Neurologic: No acute neurological defici t. Skin : No rash Neck : Supple, no jv d/ bruitIntake and Output:Intake/Output Summary (Last 24 hours) at 02/16/2019 194 2Last data filed at 02/16/2019 1748Gross per 24 hourIntake 550 mlOutput 3800 mlNet -3 250 mlLab/Data Reviewed:Recent Labs 02/16/1904WB C 8.1 8.7 9.6HGB 12.6* 13.4* 12.5*PLT 261 287 305BUN 11 12 15CREA 0.34* 0.36* 0.27*NA 135* 135* 136CL 97* 98 98K 4.4 4.6 4.5MG 2.0 1.9 1.8CA 9.5 9.3 9.4Special Requests:Da te Value Ref Range Bzeaka9502/08/2019 NO SPECIAL REQUESTS FinalCulture result:D ate Value Ref Range Ugdvre8902/08/2019 NO GROWTH 5 DAYS FinalXR Results (most re cent):Results from Hospital Encounter encounter on 02/08/19XR CHEST SNGL V Rob rative CHEST one viewHISTORY: Followup lung pathology.Comparison is made to previous studies.Accounting for differences in technique there has been no significant change ofright basal infiltrate/effusion. There is a poor inspiratory effort and p atientrotation towards the right.No other interval change is noted. Impression IMP RESSION: No significant change. CXRMedications Reviewed:Current Facility -Administered MedicationsMedication Dose Route Frequency midazolam (PF) (VERSED) 1 mg/mL injection methylPREDNISolone (PF) (SOLU-MEDROL) injection 20 mg 20 mg Int raVENous Q12H ePHEDrine (MISTOLE) 50 mg/mL injection acetylcysteine (MUCOMYST) 100 mg/mL (10 %) nebulizer solution 400 mg 4 mLNebulization BID RT ALPRAZolam (XANAX ) tablet 0.25 mg 0.25 mg Per G Tube QID PRN budesonide (PULMICORT) 500 mcg/2 ml nebu lizer suspension 500 mcg NebulizationBID RT albuterol-ipratropium (DUO-NEB) 2.5 MG-0 .5 MG/3 ML 3 mL Nebulization Q6H RT sodium chloride (NS) flush 5-10 mL 5-10 mL Int raVENous PRN cinacalcet (SENSIPAR) tablet 60 mg 60 mg Oral DAILY lamoTRIgine (LaMIC krystian) tablet 50 mg 50 mg Per G Tube BID multivitamin (ONE A DAY) tablet 1 Tab 1 Tab Per G Tube DAILY valproic acid (as sodium salt) (DEPAKENE) 250 mg/5 mL (5 m L) oral solution 750mg 750 mg Oral Q12H sodium chloride (NS) flush 5-40 mL 5-40 mL IntraVENous Q8H sodium chloride (NS) flush 5-40 mL 5-40 mL IntraVENous PRN acetaminophen (TYLENOL) tablet 650 mg 650 mg Oral Q4H PRN heparin (porcine) injectio n 5,000 Units 5,000 Units SubCUTAneous Q12H 0.9% sodium chloride infusion 100 mL/hr IntraVENous CONTINUOUS pantoprazole (PROTONIX) granules for oral suspension 40 mg 40 mg Per NG tubeACB ondansetron (ZOFRAN) injection 4 mg 4 mg IntraVENou s Q6H PRN insulin lispro (HUMALOG) injection SubCUTAneous AC&HS dextrose 40% (GLUT OSE) oral gel 1 Tube 15 g Oral PRN glucagon (GLUCAGEN) injection 1 mg 1 mg SubCUTAn eous PRN dextrose (D50) infusion 25 g 50 mL IntraVENous PRNAssessmentActive Problems : SOB (shortness of breath) (02/08/2019) Pressure injury of right heel, stage 2 ( HCC) (02/09/2019) Leg wound, right, initial encounter (02/09/2019)aspiration pneumon ia right baseAtelectasis LLLCopdgerdPulmonary embolismMental reatardationDysphagia/ pe gparkinson'sPlan1. Continue o22. Bd3. abx4. Hydration5. Nutrition6. D/c in AM , if s table.Continue current treatment.My assessment, plan of care, findings, medi cations, side effects etc werediscussed with:[X]nursing [ ]PT/OT[ ]respiratory therapy [ ][ ]family [ ]PatientChristos Lopez MDNovember 20187:42 PM Name Value Range Interpretation Code Description Data [facility] rce(s) Supporting Document(s ) ID Date Data Source [id number] 02/16/2019 07:35:09 PM [facility] Received patient from [facility] at 4:45pm after GT placement.Patient GT tube hasresistant while flushing. Informed to darryl Santillan (Gastro).As PerDr.Will look AM. Name Value Range Interpretation Code Description Data [facility] rce(s) Supporting Document(s ) ID Date Data Source [id number] 02/16/2019 07:34:21 PM [facility] Bedside shift change report given to VIANNEY BLAND RN (oncoming nurse) by NASRIN PITTS (offgoing nurse). Report included the fo llowing information SBAR,Kardex, ED Summary, Intake/Output, MAR, Recent Results, Med Rec Status andCardiac Rhythm SR. Name Value Range Interpretation Code Description Data [facility] ) ID Date Data Source [id number] 02/16/2019 06:07:32 PM [facility] TRANSFER - IN REPORT:Verbal report recei nathaly from lea PITTS(name) on Evelio Calrin being receivedfrom [facility](unit) for ro utine progression of careReport consisted of patient's Situation, Background, Assessm ent andRecommendations(SBAR).Information from the following report(s) SBAR, Kardex, Pr ocedure Summary,Intake/Output, MAR and Med Rec Status was reviewed with the yarelis oro nurse.Opportunity for questions and clarification was provided.Assessment co mpleted upon patient's arrival to unit and care assumed. Name Value Range Interpretation Code Description Data Harriett rce(s) Supporting Document(s ) ID Date Data Source [id number] 02/16/2019 05:57:19 PM [facility] Name Value Range Interpretation Description Data Sup porting Code Source(s) Document(s ) Glucose 91 MG/DL 65-110 [facility] [Mass/volume] Taoist in Blood by [facility] Automated test strip ID Date Data Source [id number] 02/16/2019 04:05:58 PM [facility] As per policy all transporters have rece ived education/training on safe handlingof patients and action to be taken in emerg ency event.TRANSFER - OUT REPORT:Verbal report given to Rama PITTS on Evelio beltran being transferred to(unit) for routine post - opReport consisted of betty razo's Situation, Background, Assessment andRecommendations(SBAR).Information fro m the following report(s) SBAR was reviewed with the receivingnurse.Opportunity for questions and clarification was provided.Patient transported with: O2 @ 6 litersTech Name Value Range Interpretation Code Description Data Harriett rce(s) Supporting Document(s ) ID Date Data Source [id number] 02/16/2019 02:27:21 PM [facility] GIPatient s/p EGD with placement of a th gccci-zov-COM jejunal feeding tube. Seeprocedure report for details.OK to us e new tube for meds/free water but would not administer feeds until GIre-evaluation t omorrow. Name Value Range Interpretation Code Description Data Harriett rce(s) Supporting Document(s ) ID Date Data Source [id number] 02/16/2019 02:24:15 PM [facility] PEG ENDOSCOPYNAME: Evelio Carlin : 1950MRN: [id number] Type: EGD, PEG and through the PEG jejunal tub eIndications: Recurrent aspiration, for G to J tube conversion to allow forsmall b owel rather than gastric feedingsPre-operative Diagnosis: see ind ication abovePost-operative Diagnosis: See findings belowOperator: Brad uribe, MDReferragustin Provider: Mili Hills, DOSedation: MAC per anesthesia. Antibio tic prophylaxis was not given immediatelyprior to the procedure as the existing GC fistula tract was utilized and no newskin incisions were made.Prior to the procedure its objectives, risks, consequences and alternatives werediscus sed with the patient and/or health care proxy who then elected to proceed.The patient had the opportunity to ask questions and those questions wereanswered. A physical exam was performed. The heart, lungs, and mental statuswere examined prior to the procedure and found to be satisfactory for sedationand for the procedure. Continuou s pulse oximetry and blood pressure monitoringwere used throughout the proce dure.After adequate sedation was acheived, the endoscope was passed into theesophag us without difficulty. The esophagus appeared unremarkable. The stomachappeared grossl y normal in forward and retroflexed views; the existing foleyballoon was noted to b e in place. The duodenal bulb and post-bulbar areaappeared unremarkable.Next attention was paid towards replacement of the existing feeding tube(currently a 24F lozano) with a PEG tube. As the lozano balloon would not deflateby withdrawing on the syringe con nected to the balloon port nor by cutting thefoley itself close to the abdominal w all, an injector needle was used topuncture the balloon within the stomach, after wh ich the lozano was able to beeasily removed in one piece via the anterior abdominal wal l. A wire was thenpassed through the existing gastrocutaneous fistula and under direct vision intothe stomach. This was snared and brought out the mouth. A 24 spanish tract ionremovable pull type PEG tube was passed over the wire and brought out theabdomin al wall without difficulty. The endoscope was then reinserted via themouth and advance d into the stomach, confirming proper placement of the PEGtube. The PEG tube w as then cut about 15 cm from the skin and a 12 nfgdudppopzug-wou-NKW jejunal feeding tube was advanced through the PEG and into thestomach. A [employer] on clip was then used to grasp the loop atthe distal end of the jejunal feeding tube, which was pulled under direct visionto the proximal jejunum, where the clip was dep loyed to the mucosa therebyanchoring the loop/tube in place. The proximal feeding adapter was secured tothe cut end of the gastrostomy tube and a closure device se cured about the hub.The scope was then removed and the procedure terminated. T here was nosignificant bleeding noted at the conclusion of the procedure.Specimen Rem kathie: noneComplications: None.EBL: < 5 cc.Impression: S/p successful PEG to PEJ conversionRecommendations: Maintain abdominal binder to minimize risk of tub edislodgement. Keep tube clamped when not in use. May use tube immediately formeds an d free water. Don't re-start feeds until seen by GI tomorrow (patientwill require slow continuous feeds rather than large volume feedings).Signed By: Mireya Mccollum 02/16/2019 12:46 PM Name Value Range Interpretation Code Description Data Harriett rce(s) Supporting Document(s ) ID Date Data Source [id number] 02/16/2019 01:32:34 PM EST [facility] Progress NoteS[facility] ,[facility].Krystian Monae MD., F.C.C.P.Stella Hamilton MD., F.C.C.P. 9W 1 [facility] [address] [place] [id number] [place] [address] [phone]: Evelio Carlin Sex: male DOA: 02/08/2019D ate of : 1950 Age: 68 y.o. LOS: LOS: 8 daysSubjective:Mr. Maximiliano mata is a 68 y.o. year old male who is being seen for COPD , ACUTERESPIRATOR Y FAILURE , MULTIPLE ASPIRATION PNEUMONIA. 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 Authorizing Providercefepim e 2 gram 2 g IVPB 2 g by IntraVENous route every eight (8) hours.02/12/19 Yes Christos Gilbert MDheparin sodium,porcine (HEPARIN, PORCINE,) 5,000 unit/mL inject ion 1 mL bySubCUTAneous route every twelve (12) hours every twelve (12) hours. 01/15 05/03 Yes Christos Lopez, MDpantoprazole (PROTONIX) 40 mg granules for oral suspe nsion 40 mg by Per NG tuberoute Daily (before breakfast). 02/13/19 Yes Leisa Lopez r, MDpredniSONE (DELTASONE) 10 mg tablet Take 20 mg by mouth daily. 02/12/19 YesChristos Jean, MDpredniSONE (DELTASONE) 10 mg tablet Take 10 mg by mouth daily (with b reakfast).02/12/19 Yes Christos Lopez, MDmultivitamin (MULTI-DELYN, WELLESSE) l iqd 5 mL by Per G Tube route daily. Yes Provider, Historicalvalproic acid, as so dium salt, (DEPAKENE) 250 mg/5 mL (5 mL) soln oral durrfald284 mg by Per G Tube route every twelve (12) hours. Yes Provider, Historicalacetylcysteine (MUCOMYST) 100 mg/mL (10 %) nebulizer solution Take 4 mL byinhalation two (2) times a day. Ye s Provider, Historicalzinc oxide 10 % topical cream Apply to affected area daily. Rib bon around GTsite Yes Provider, Historicalomeprazole (PRILOSEC) 2 mg/mL susp 2 mg/mL oral suspension (compounded) 40 mg byPer G Tube route daily. Yes Pro vider, Historicalsilver sulfADIAZINE (SILVADENE) 1 % topical cream Apply to affected area two(2) times a day. 1 inch ribbon- right edge Yes Provider, His toricalcholestyramine-aspartame (QUESTRAN LIGHT) 4 gram packet Take 1 Packet by mo uthtwo (2) times a day.Patient taking differently: 4 g two (2) times a day. Vi a G tube. 01/24/19 Mili Ware DOclorazepate (TRANXENE) 3.75 mg tablet 1 Tab by Per G Tube route nightly. MaxDaily Amount: 3.75 mg. 12/30/18 Yes Eloisa Hills DOcinacalcet (SENSIPAR) 30 mg tablet Take 2 Tabs by mouth daily.Patient erasmo medina differently: 60 mg daily. Via G tube 12/30/18 Yes Mili Hills DOlamoTRIcarol ine (LAMICTAL) 25 mg tablet 2 Tabs by Per G Tube route two (2) times aday. 12/30/18 Yes Mili Hills DOalbuterol-ipratropium (DUO-NEB) 2.5 mg-0.5 mg/3 ml nebu 3 mL b y Nebulizationroute every six (6) hours. Every 6 hours while awake 12/30/18 Yes Mili Hills DObudesonide (PULMICORT) 0.5 mg/2 mL nbsp 2 mL by Nebulization route two (2) timesa day. 12/30/18 Yes Mili Hilsl DOacetaminophen (TYLENOL) 32MG/ ML soln solution Take 20.3 mL by mouth every four(4) hours as needed for Pain or Feve r. 01/24/19 Mili Hills DOinfluenza vaccine 2019-20, 65 yrs+,,PF, (FLUZONE H IGH-DOSE) syrg injection 0.5mL by IntraMUSCular route PRIOR TO DISCHARGE. 01/24/19 Mili Hills DObacitracin 500 unit/gram ointment Apply 1 Packet to affected area two (2) timesa day. Indications: minor skin infection due to bacteria, facial scabs 12/30/18 Mili Hills DO No Known Allergies Past Nena gical History:Procedure Laterality Date HX GASTROSTOMY PEG- replaced 11/2018 H istory reviewed. No pertinent family history. Social History Socioeconomic History Ma rital status: SINGLE Spouse name: Not on file Number of children: Not on file Y ears of education: Not on file Highest education level: Not on fileTobacco Use Smoking status: Never Smoker Smokeless tobacco: Never UsedSubstance and Sexual Activity Alcohol use: No Drug use: No Review of SystemsPertinent items are not ed in the History of Present Illness. Physical Exam: Current medications: Curr ent Facility-Administered Medications: ALPRAZolam (XANAX) tablet 0.25 mg, 0.25 mg, Per G Tube, QID PRN, Christos Lopez MD methylPREDNISolone (PF) (Solu-MEDROL) in jection 40 mg, 40 mg, IntraVENous,Q12H, Chay Palma MD, 40 mg at 0910 budesonide (PULMICORT) 500 mcg/2 ml nebulizer suspension, 500 mcg,N ebulization, BID RT, Christos Lopez MD, 500 mcg at 02/15/19 0835 albuterol-ipratro pium (DUO-NEB) 2.5 MG-0.5 MG/3 ML, 3 mL, Nebulization, Q6HRT, Stella Hamilton MD, 3 mL at 02/15/19 1437 acetylcysteine (MUCOMYST) 100 mg/mL (10 %) nebulizer so lution 400 mg, 4 mL,Nebulization, TID RT, Krystian Monae MD, 400 mg at 02/15/19 08 35 sodium chloride (NS) flush 5-10 mL, 5-10 mL, IntraVENous, PRN, Hillary Palma MD cinacalcet (SENSIPAR) tablet 60 mg, 60 mg, Oral, DAILY, Justin Palma MD, 60 mg at 02/15/19 0911 lamoTRIgine (LaMICtal) tablet 50 mg, 50 mg, Per G Tube, BID, Chay Flores MD, 50 mg at 02/15/19 0911 multivitami n (ONE A DAY) tablet 1 Tab, 1 Tab, Per G Tube, DAILY,Chay Palma MD, 1 Tab at 02/15/19 0911 valproic acid (as sodium salt) (DEPAKENE) 250 mg/5 mL (5 m L) oral [id number] mg, 750 mg, Oral, Q12H, Chay Palma MD, 750 mg at 1 04/17/18 0909 sodium chloride (NS) flush 5-40 mL, 5-40 mL, IntraVENous, Q8H, Chay Oswald MD, 10 mL at 02/15/19 1434 sodium chloride (NS) flush 5-40 m L, 5-40 mL, IntraVENous, PRN, Chay Palma MD, 10 mL at 1400 acetaminophen (TYLENOL) tablet 650 mg, 650 mg, Oral, Q4H PRN, Chay Wiley MD, 650 mg at 02/09/19 2239 heparin (porcine) injection 5,000 Units, 5,000 Units, SubCUTAneous, Q12H,Chay Palma MD, 5,000 Units at 02/15/19 1144 0.9% sodium chloride infusion, 100 mL/hr, IntraVENous, CONTIN UOUS,Chay Palma MD, Last Rate: 100 mL/hr at 02/15/19 1434, 100 mL/hr at 02/15/19 1434 pantoprazole (PROTONIX) granules for oral suspension 40 mg, 40 m g, Per NGtube, ACB, Chay Palma MD, 40 mg at 02/15/19 0911 ondansetron (ZOFRAN) injection 4 mg, 4 mg, IntraVENous, Q6H PRN,Chay Palma MD ce fepime (MAXIPIME) 2 g in 0.9% sodium chloride (MBP/ADV) 100 mL MBP, 2 g,IntraVENous, Q 8H, Chay Palma MD, Last Rate: 200 mL/hr at 526, 2 g at 1526 insulin lispro (HUMALOG) injection, , SubCUTAneous, AC&HS, Tali Palma MD, 2 Units at 02/15/19 1254 dextrose 40% (GLUTOSE) oral gel 1 Tube, 15 g, Oral, PRN, Chay Palma MD glucagon (GLUCAGEN) injection 1 mg, 1 mg , SuObjective:Vital Signs:Patient Vitals for the past 24 hrs: BP Temp Pulse Resp SpO2 02/16/19 1244 153/80 - 73 19 94 %02/16/19 1120 120/84 98.5 F (36.9 C) 76 18 94 % 02/16/19 0723 110/84 98 F (36.7 C) 66 18 96 %02/16/19 0404 (!) 120/95 98 F (36.7 C ) 65 18 95 %02/16/19 0013 107/89 98 F (36.7 C) 69 18 94 %02/15/192015 - - - - 95 %1 04/17/18 1929 125/78 97.8 F (36.6 C) 78 18 95 %Pulse OX:SpO2 Readings from Last 6 E ncounters:02/16/19 94%01/24/19 93%12/30/18 96%11/27/18 91%09/26/15 96%@LASTSAO2(6)@ Physical Exam:MORE AWAKE TODAY , FOR P E G INSERTION . General: Alert, cooperative, no distress, appears stated age. Head: Normocephalic, w ithout obvious abnormality, atraumatic. Eyes: Conjunctivae/corneas clear. PERRL, EOMs intact. Nose: Nares normal. No drainage or sinus tenderness Throat: Lips, mucosa, and tongue normal Neck: Supple, symmet rical, trachea midline, no adenopathy,thyroid: no enlargem ent/tenderness/nodules, no carotid bruit and no JVD. Lungs: IMPROVED AERA TION IN BOTH LUNGS . to auscultationbilaterally. Chest Wall: No tenderness or deformity. Heart: Regular rate and rhythm, S1, S2 normal, no murmur, click,rub or gallop. Abdomen: Soft, non-tender. Bowel sounds normal. No masses, No organomegaly. Extremities: Extremities normal, atraumatic, no cyano sis or edema. Pulses: 4+ bilaterally. Skin: Skin co nirali, texture, turgor normal. No rashes or lesions. Neurologic: CNII-XII intact. No focal motor or sensory deficit.Intake and Output:Last three shifts: 02/14 1901 - 02/16 0700In: 150Out: 1600 [Urine:1600]Lab Results:Recent Results (from the past 24 hour(s))GLUCOSE, POC Collection Time: 02/15/19 5:27 PMResult Value Ref Range Glucose, bedside 114 (H) 65 - 110 MG/DLOSMOLALITY, UR Collection Time: 07/01 5:30 PMResult Value Ref Range Osmolality,urine 408 300 - 1,000 MOSM/kg [id number], UR, RANDOM Collection Time: 02/15/19 5:30 PMResult Value Ref Range Sodium,urine random 122 40 - 220 MMOL/LGLUCOSE, POC Collection Time: 07/01 8:24 PMResult Value Ref Range Glucose, bedside 96 65 - 110 MG/DLCBC W/O DIFF Co llection Time: 02/16/19 4:45 AMResult Value Ref Range WBC 8.1 4.8 - 10.6 K/uL RBC 3. 96 (L) 4.70 - 6.00 M/uL HGB 12.6 (L) 14.0 - 18.0 g/dL HCT 39.9 (L) 42.0 - 52.0 % MCV 100.8 (H) 81.0 - 94.0 FL MCH 31.8 27.0 - 35.0 PG MCHC 31.6 30.7 - 37.3 g/dL RDW 1 6.0 (H) 11.5 - 14.0 % PLATELET 261 130 - 400 K/uL MPV 9.2 9.2 - 11.8 FLMAGNESIUM Manuel ection Time: 02/16/19 4:45 AMResult Value Ref Range Magnesium 2.0 1.6 - 2.6 mg/dLM ETABOLIC PANEL, BASIC Collection Time: 02/16/19 4:45 AMResult Value Ref Range Sodium 135 (L) 136 - 145 mmol/L Potassium 4.4 3.5 - 5.1 mmol/L Chloride 97 (L) 98 - 10 7 mmol/L CO2 37 (H) 21 - 32 mmol/L Anion gap 5 (L) 10 - 20 mmol/L Glucose 90 74 - 106 mg/dL BUN 11 7 - 18 mg/dL Creatinine 0.34 (L) 0.70 - 1.30 mg/dL GFR est AA >60 >60 ml/min/1.73m2 GFR est non-AA >60 >60 ml/min/1.73m2 Calcium 9.5 8.5 - 10.1 mg/ dLALBUMIN Collection Time: 02/16/19 4:45 AMResult Value Ref Range Albumin 2.3 (L) 3.5 - 4.7 g/dLPHOSPHORUS Collection Time: 02/16/19 4:45 AMResult Value Ref Range Phosphorus 2.9 2.5 - 4.9 mg/dLGLUCOSE, POC Collection Time: 02/16/19 7:07 AMResult Value Ref Range Glucose, bedside 96 65 - 110 MG/DLGLUCOSE, POC Collection Time: 02/16 11:33 AMResult Value Ref Range Glucose, bedside 78 65 - 110 MG/DLABG:No results for input(s): PH, PCO2, PO2, HCO3, FIO2 in the last 72 hours.Recent Glucose Results :Lab ResultsComponent Value Date/Time GLU 90 02/16/2019 04:45 AM GLUCPOC 78 9 11:33 AM GLUCPOC 96 02/16/2019 07:07 AM GLUCPOC 96 02/15/2019 08:24 PM@[email or web address] INTERPRETATION@[email or web address] Micro Results Procedure Component Value Units Date/Patria e CULTURE, BLOOD [[id number]] Collected: 02/08/19 1719 Order Status: Completed S pecimen: Blood Updated: 02/13/19620 Special Requests: NO SPECIAL REQUESTS C ulture result: NO GROWTH 5 DAYS CULTURE, BLOOD [[id number]] Collected: 02/08/19 1 700 Order Status: Completed Specimen: Blood Updated: 02/13/19620 Special Request s: NO SPECIAL REQUESTS Culture result: NO GROWTH 5 DAYS LEGIONELLA PNEUMOPHILA AG, URINE [[id number]] Collected: 02/08/19 2330 Order Status: Completed Specimen: Urin e Updated: 02/09/19 1035 Legionella Ag, urine NEGATIVE Comment:PRESUMPTIVE NEGA TIVE forL.pneumophila Serogroup 1Antigen in urine,suggestingno recent or current inf ection.Infection due to Legionellacannot be ruled out since otherserogroups and spec ies may causedisease,antigen may not bepresent in urine in earlyinfection, an d the level ofantigen present in the urinemay be below the detectionlimit of the test. Method IMMUNOCHROMATOGRAPHIC MEMBRANE ASSAY CULTURE, RESPIRATORY/SPUTUM/BRONCH W GRAM STAIN [[id number]] Collected:02/08/19 1830 Order Status: Canceled Specimen: SputumImages:@[email or web address]@Xr Chest Sngl VResult Date: 02/12/2019CHEST one view H ISTORY: Followup lung pathology. Comparison is made to previousstudies. Accounting f or differences in technique there has been no significantchange of right basal infiltr ate/effusion. There is a poor inspiratory effortand patient rotation towards the r ight. No other interval change is noted.IMPRESSION: No significant change. Xr Chest Sngl VResult Date: 02/09/2019AP portable film of the chest clinical vi cation pneumonia Study is compared toprevious examination of February 08, 2019. Again n oted is cardiac enlargement curtis limited inspiration. There has been partial sudhakar ring of right mid lungdensities. Again noted is an old fracture of the left clavicleI MPRESSION: Partial clearing right lung densities otherwise little changeXr Ches t PortResult Date: 02/08/2019XR CHEST PORT Clinical data: Sepsis Priors: 01/21/2019. Findings: The heart sizeis unchanged. Limited inspiration with right basilar l eunice opacities which canbe due to pneumonia. Slightly elevated left hemidiaphragm wit h left basilaratelectasis. No evidence of CHF or large pleural effusion. Patient' s downwardpointing chain obscures the right lung apex. There is an old healed leftc lavicle fracture.IMPRESSION: Right lower lobe parenchymal opacities which can be due t opneumonia. Left basilar atelectatic changes in the juxtadiaphragmatic location.Limit ed inspiration compromises evaluation.Xr Chest PortResult Date: 01/21/2019Mack medina Physician: MONICA GOMEZ Patient Name: EVELIO CARLIN THIS IS AFINAL REPORT FROM [facility] DATE OF SERVICE: 2019-01-21 22:23:43 IMAGES: 1EXAM: XY CH EST PORTABLE HISTORY: Rule out sepsis COMPARISON: Chest x-ray 01/17/19FINDINGS: The patient is rotated and obliquely positioned There is no airspaceconsolida tion. No pneumothorax. Persistent small bilateral pleural effusions Thecardiac s ilhouette appears grossly stable. Limited assessment secondary topositioning and p artially obscured heart borders The bones are demineralized.Limited visualization of t he thoracic spineIMPRESSION: Persistent small bilateral pleural effusions No radiograp hicevidence of acute airspace process THIS DOCUMENT HAS BEEN ELECTRONICALLY SIGNEDJ cecelia Cole MD 01/21/2019 22:46 GINA Verde Please call Imaging On [phone] ([phone]) with questions. This report was electronically signedby: Noel Cole MD 01/21/2019 10:48 PMDuplex Upper Ext Venous LeftResult Date: 2018LEFT UPPER EXTREMITY DOPPLER History: DVT. High-resolution linear sonography o fthe left upper extremity was performed using Color Doppler Flow and DuplexDoppler Spe ctral sonography. There is no evidence of a deep vein thrombosis. Thecephalic vein c ould not be visualized. The left internal jugular, subclavian,axillary, brachial a nd basilic veins are patent and completely compressible.Spontaneous and phasic flow is noted.IMPRESSION: No evidence of deep vein thrombosis.Duplex Lower Ext Venous BilatResult Date: 02/10/2019RIGHT and LEFT LOWER EXTREMITY VENOUS DOPPLER STUDIES: Right and Left lowerextremity venous spectral Doppler studies are performed using Berthoud r Doppler Flowand enhanced Duplex Spectral technique. History: Pain and swelling. T here is noevidence of deep venous thrombosis present. There is normal compressibilit y,augmentation and phasicity from common femoral vein through popliteal vein. .Th e anterior tibial and peroneal veins are not visualized. The posterior tibialveins of the calf are patent.IMPRESSION: No evidence of lower extremity deep venous thrombosi s bilaterally.Limited calf evaluation.Medications:Current Facility- Administered MedicationsMedication Dose Route Frequency midazolam (PF) (VERSED) 1 mg/ mL injection acetylcysteine (MUCOMYST) 100 mg/mL (10 %) nebulizer solution 400 mg 4 mLNebulization BID RT ALPRAZolam (XANAX) tablet 0.25 mg 0.25 mg Per G Tube QID P RN methylPREDNISolone (PF) (Solu-MEDROL) injection 40 mg 40 mg IntraVENous Q12H budesonide (PULMICORT) 500 mcg/2 ml nebulizer suspension 500 mcg Nebulizati onBID RT albuterol-ipratropium (DUO- NEB) 2.5 MG-0.5 MG/3 ML 3 mL Nebulization Q6H RT sodium chloride (NS) flush 5-10 mL 5- 10 mL IntraVENous PRN cinacalcet (SENSIPAR) t ablet 60 mg 60 mg Oral DAILY lamoTRIgine (LaMICtal) tablet 50 mg 50 mg Per G Tub e BID multivitamin (ONE A DAY) tablet 1 Tab 1 Tab Per G Tube DAILY valproic acid (a s sodium salt) (DEPAKENE) 250 mg/5 mL (5 mL) oral solution 750mg 750 mg Oral Q12H s odium chloride (NS) flush 5-40 mL 5-40 mL IntraVENous Q8H sodium chloride (NS) fl ush 5-40 mL 5-40 mL IntraVENous PRN acetaminophen (TYLENOL) tablet 650 mg 6 50 mg Oral Q4H PRN heparin (porcine) injection 5,000 Units 5,000 Units SubCU TAneous Q12H 0.9% sodium chloride infusion 100 mL/hr IntraVENous CONTINUOUS pantop razole (PROTONIX) granules for oral suspension 40 mg 40 mg Per NG tubeACB ondansetron (ZOFRAN) injection 4 mg 4 mg IntraVENous Q6H PRN insulin lispro (HUM ALOG) injection SubCUTAneous AC&HS dextrose 40% (GLUTOSE) oral gel 1 Tube 15 g Oral PRN glucagon (GLUCAGEN) injection 1 mg 1 mg SubCUTAneous PRN dextrose (D 50) infusion 25 g 50 mL IntraVENous PRNFacility-Administered Medications Ord ered in Other EncountersMedication Dose Route Frequency lactated Ringers infusion I ntraVENous CONTINUOUS propofol (DIPRIVAN) 10 mg/mL injection IntraVENous PRN midaz olam (VERSED) injection IntraVENous PRNActive Problems: SOB (shortness of b reath) (02/08/2019) Pressure injury of right heel, stage 2 (HCC) (02/09/2019) Leg wo und, right, initial encounter (02/09/2019)Assessment:Active Problems: SOB (shortness of breath) (02/08/2019) Pressure injury of right heel, stage 2 ( HCC) (02/09/2019) Leg wound, right, initial encounter (02/09/2019) Acute resp fail ure combined better. pneumonia acute copd exacerbationPLAN, FOR P E G INSERTION TODAYMonitoring,bipap prn for resp distress,abx as per id.Steroid nebbipap prn and at night.NebGi /dvt prophylaxis.DECREASE I V SOLUMEDROL 20 MG Q 12 H MD Adan Knight.C.P.February 16, 2019 Name Value Range Interpretation Code Description Data Harriett rce(s) Supporting Document(s ) ID Date Data Source [id number] 02/16/2019 12:17:39 PM EST [facility] RENAL Progress NotePatient: Evelio Shukla hbein Sex: male DOA: 02/08/2019Date of : 1950 Age: 68 y.o. LOS: 8 daysThis is medicine coverage for dr Baum bjective:Patient was seen earlier today. Pt is awake/ non verbal/ hemodynamically st able.J-tube placement , tomorrow. No fever/ chills/ sob/ cp/ n/ v/ d, as per RN.ROS- --- As per RN, unremarkable.Pt is seen forPneumonia right baseAtelectasis LLLCo pdgerdPulmonary embolismMental retardationNew onset hyponatremiaObjective:Visit Vitals BP 120/84 (BP 1 Location: Right arm, BP Patient Position: At rest)Pulse 76Temp 9 8.5 F (36.9 C)Resp 18Ht 5' 2" (1.575 m)Wt 61.2 kg (135 lb)SpO2 94%BMI 24.69 kg/m P hysical Exam: General: WD, thin. awake, cooperative, no acute distress. HEENT: NC, Atraumatic. PERRLA, anicteric sclerae.pink conjunctiva Lungs: B/l ae. No Wheezing/Rhonchi/Rales. He art: Regular rhythm, No murmur, No Rubs, No Gallops.s1,s2 Abdomen: Soft, Non distended, Non tender. +Bowel sounds.pos peg Extremities: No c/c/e. P sych: Not anxious or agitated. Neurologic: No acute neurological defici t. Skin : No rash Neck : Supple, no j vd/ bruitIntake and Output:Intake/Output Summary (Last 24 hours) at 02/16/2019 121 7Last data filed at 02/16/2019 0411Gross per 24 hourIntake 50 mlOutput 1600 mlNet -15 50 mlLab/Data Reviewed:Recent Labs 02/16/1904503WB C 8.1 8.7 9.6HGB 12.6* 13.4* 12.5*PLT 261 287 305BUN 11 12 15CREA 0.34* 0.36* 0.27*NA 135* 135* 136CL 97* 98 98K 4.4 4.6 4.5MG 2.0 1.9 1.8CA 9.5 9.3 9.4Special Requests:Da te Value Ref Range Uoytic6702/08/2019 NO SPECIAL REQUESTS FinalCulture result:D ate Value Ref Range Psmdum9202/08/2019 NO GROWTH 5 DAYS FinalXR Results (most re cent):Results from Hospital Encounter encounter on 02/08/19XR CHEST SNGL V Rob rative CHEST one viewHISTORY: Followup lung pathology.Comparison is made to previous studies.Accounting for differences in technique there has been no significant change ofright basal infiltrate/effusion. There is a poor inspiratory effort and p atientrotation towards the right.No other interval change is noted. Impression IMP RESSION: No significant change. CXRMedications Reviewed:Current Facility -Administered MedicationsMedication Dose Route Frequency acetylcysteine (MUCOMYS T) 100 mg/mL (10 %) nebulizer solution 400 mg 4 mLNebulization BID RT ALPRAZolam (XA NAX) tablet 0.25 mg 0.25 mg Per G Tube QID PRN methylPREDNISolone (PF) (Solu-MEDRO L) injection 40 mg 40 mg IntraVENous Q12H budesonide (PULMICORT) 500 mcg/2 ml nebu lizer suspension 500 mcg NebulizationBID RT albuterol-ipratropium (DUO-NEB) 2.5 MG-0 .5 MG/3 ML 3 mL Nebulization Q6H RT sodium chloride (NS) flush 5-10 mL 5-10 mL Int raVENous PRN cinacalcet (SENSIPAR) tablet 60 mg 60 mg Oral DAILY lamoTRIgine (LaMIC krystian) tablet 50 mg 50 mg Per G Tube BID multivitamin (ONE A DAY) tablet 1 Tab 1 Tab Per G Tube DAILY valproic acid (as sodium salt) (DEPAKENE) 250 mg/5 mL (5 m L) oral solution 750mg 750 mg Oral Q12H sodium chloride (NS) flush 5-40 mL 5-40 mL IntraVENous Q8H sodium chloride (NS) flush 5-40 mL 5-40 mL IntraVENous PRN acetaminophen (TYLENOL) tablet 650 mg 650 mg Oral Q4H PRN heparin (porcine) injectio n 5,000 Units 5,000 Units SubCUTAneous Q12H 0.9% sodium chloride infusion 100 mL/hr IntraVENous CONTINUOUS pantoprazole (PROTONIX) granules for oral suspension 40 mg 40 mg Per NG tubeACB ondansetron (ZOFRAN) injection 4 mg 4 mg IntraVENou s Q6H PRN insulin lispro (HUMALOG) injection SubCUTAneous AC&HS dextrose 40% (GLUT OSE) oral gel 1 Tube 15 g Oral PRN glucagon (GLUCAGEN) injection 1 mg 1 mg SubCUTAn eous PRN dextrose (D50) infusion 25 g 50 mL IntraVENous PRNAssessmentActive Problems : SOB (shortness of breath) (02/08/2019) Pressure injury of right heel, stage 2 ( HCC) (02/09/2019) Leg wound, right, initial encounter (02/09/2019)pneumonia right ba seAtelectasis LLLCopdgerdPulmonary embolismMental retardationDysphagia/ peg Parkinson'shyponatremiaPlan1. Fluid resyriction2. Urine sodium3. U&S osmolal ity4. Bd5. abx6. Hydration7. Labs8. GI f/uContinue current treatment.My assessm ent, plan of care, findings, medications, side effects etc werediscussed with:[X]n tho [ ]PT/OT[ ]respiratory therapy [ ][ ]family [ ]HamzahOralia Mireya Frankel 20189:11 AM Name Value Range Interpretation Code Description Data Harriett rce(s) Supporting Document(s ) ID Date Data Source [id number] 02/16/2019 11:47:33 AM EST [facility] Name Value Range Interpretation Description Data Sup porting Code Source(s) Document(s ) Glucose 78 MG/DL 65-110 [facility] [Mass/volume] [facility] Automated test strip ID Date Data Source [id number] 02/16/2019 11:14:08 AM EST [facility] ID Progress Note02/16/2019Subjective:Pt a waiting J- tube placement otodayPatient with MR non verbal,unable to provide history. AfebrileWbc trending down.No new event overnightObjective:Vitals:Patient Vitals for the past 24 hrs: BP Temp Pulse Resp DmB13902/16/19 0723 110/84 98 F (36.7 C) 66 18 96 %02/16/19 0404 (!) 120/95 98 F (36.7 C) 65 18 95 %02/16/19 0013 107/89 98 F (36.7 C) 69 18 94 %02/15/192015 - - - - 95 %02/15/19 1929 125/78 97.8 F (36 .6 C) 78 18 95 %02/15/19 1306 122/77 97.1 F (36.2 C) 72 18 97 %02/15/19 1256 118/62 96.7 F (35.9 C) 76 18 94 %Tmax: Temp (24hrs), Av.6 F (36.4 C), Min:96.7 F (35.9 C), Max:98 F(36.7 C)Physical Exam:General: Awake non verabl cooperat britni, no distressEyes: Conjunctivae/corneas clear. PERRLNeck: Supple, symmetrical, t rachea midline, no adenopathyLungs: Bilateral breath sounds with basal crack les..Heart: Regular rate and rhythm, S1, S2 normal, no murmurAbdomen: Soft, non-te nder. Bowel sounds normal. No masses, No organomegaly.+pegBack: No CVA tenderne ss.Extremities: No cyanosis,chronic lymphedemaPulses: 2+ and symmetric all e xtremities.Skin: Skin color, texture, turgor normal. No rashes or lesionsCurrent Faci lity-Administered MedicationsMedication Dose Route Frequency acetylcysteine (MUCOMYS T) 100 mg/mL (10 %) nebulizer solution 400 mg 4 mLNebulization BID RT ALPRAZolam (XA NAX) tablet 0.25 mg 0.25 mg Per G Tube QID PRN methylPREDNISolone (PF) (Solu-MEDRO L) injection 40 mg 40 mg IntraVENous Q12H budesonide (PULMICORT) 500 mcg/2 ml nebu lizer suspension 500 mcg NebulizationBID RT albuterol-ipratropium (DUO-NEB) 2.5 MG-0 .5 MG/3 ML 3 mL Nebulization Q6H RT sodium chloride (NS) flush 5-10 mL 5-10 mL Int raVENous PRN cinacalcet (SENSIPAR) tablet 60 mg 60 mg Oral DAILY lamoTRIgine (LaMIC krystian) tablet 50 mg 50 mg Per G Tube BID multivitamin (ONE A DAY) tablet 1 Tab 1 Tab Per G Tube DAILY valproic acid (as sodium salt) (DEPAKENE) 250 mg/5 mL (5 m L) oral solution 750mg 750 mg Oral Q12H sodium chloride (NS) flush 5-40 mL 5-40 mL IntraVENous Q8H sodium chloride (NS) flush 5-40 mL 5-40 mL IntraVENous PRN acetaminophen (TYLENOL) tablet 650 mg 650 mg Oral Q4H PRN heparin (porcine) injectio n 5,000 Units 5,000 Units SubCUTAneous Q12H 0.9% sodium chloride infusion 100 mL/hr IntraVENous CONTINUOUS pantoprazole (PROTONIX) granules for oral suspension 40 mg 40 mg Per NG tubeACB ondansetron (ZOFRAN) injection 4 mg 4 mg IntraVENou s Q6H PRN insulin lispro (HUMALOG) injection SubCUTAneous AC&HS dextrose 40% (GLUT OSE) oral gel 1 Tube 15 g Oral PRN glucagon (GLUCAGEN) injection 1 mg 1 mg SubCUTAn eous PRN dextrose (D50) infusion 25 g 50 mL IntraVENous PRNLabs:Recent Labs 03447 435 503WBC 8.1 8.7 9.6HGB 12.6* 13.4* 12.5*PLT 261 287 305B UN 11 12 15CREA 0.34* 0.36* 0.27*Cultures:Lab ResultsComponent Value Date/Time Culture result: NO GROWTH 5 DAYS 02/08/2019 05:19 PM Culture result: NO GROWTH 5 DAYS 019 05:00 PM Culture result: NO GROWTH 5 DAYS 01/21/2019 11:30 PMRadiology:No results found.Assessment: Aspiration pneumonia Acute COPD exacerbation. Acute respirat ory failure with hypoxia. Dysphagia Atelectasis Plan:1. Continue IV cefepime 2. Follow cultures.Monica Gomez MDNovember 4, AM Name Value Range Interpretation Code Description Data [facility] rce(s) Supporting Document(s ) ID Date Data Source [id number] 02/16/2019 08:50:35 AM [facility] TRANSFER - IN REPORT:Verbal report recei nathaly from Ceferino PITTS on Evelio Carlin being [address] for ordered procedureReport consisted of patient's Situation, Background, Assessment andRec ommendaconcha(SBAR).Information from the following report(s) SBAR and MAR was rev iewed with therecehospital for special care nurse.Opportunity for questions and clarification was provided .Assessment completed upon patient's arrival to unit and care assumed. Name Value Range Interpretation Code Description Data [facility] Supporting Document([facility] ) ID Date Data Source [id number] 02/16/2019 07:28:26 AM [facility] Bedside and Verbal shift change report g iven to Manpreet Doyle RN (oncomingnurse) by Josh Weiner RN(offgoing nurs e). Report given with SBAR, Kardex, Intake/Output, MAR and RecentResults. Name Value Range Interpretation Code Description Data [facility] Supporting Document(s ) ID Date Data Source [id number] 02/16/2019 07:22:28 AM [facility] Bedside and Verbal shift change report g iven to Mariaa Doyle RN (oncomingnurse) by Josh Weiner RN(offgoing nurs e). Report given with SBAR, Kardex, Intake/Output, MAR and RecentResults. Name Value Range Interpretation Code Description Data [facility] Supporting Document(s ) ID Date Data Source [id number] 02/16/2019 07:22:35 AM [facility] Name Value Range Interpretation Description Data Sup porting Code Source(s) Document(s ) Glucose 96 MG/DL 65-110 [facility] [Mass/volume] [facility] in Blood by [facility] Automated test strip ID Date Data Source [id number] 02/16/2019 05:34:44 AM EST [facility] Name Value Range Interpretation Description Data Sup porting Code Source(s) Document(s ) Phosphate 2.9 mg/dL 2.5-4.9 [facility] [Mass/volume] [facility] in Serum or Hospital Plasma ID Date Data Source [id number] 02/16/2019 05:34:44 AM EST [facility] Name Value Range Interpretation Description Data Sup porting Code Source(s) Document(s ) Sodium 135 136-145 Below low normal [facility] [Moles/volume] mmol/L [facility] in Serum or Hospital Plasma Potassium 4.4 3.5-5.1 [facility] [Moles/volume] mmol/L [facility] in Serum or Hospital Plasma Chloride 97 98-107 Below low normal [facility] [Moles/volume] mmol/L [facility] in Serum or Hospital Plasma Carbon 37 21-32 Above high normal [facility] dioxide, total mmol/L [facility] [Moles/volume] Hospital in Serum or Plasma Anion gap in 5 mmol/L 10-20 Below low normal [facility] Go od Serum or [facility] Plasma Hospital Glucose 90 mg/dL 74-106 [facility] [Mass/volume] [facility] in Serum or Hospital Plasma Urea nitrogen 11 mg/dL 7-18 [facility] [Mass/volume] [facility] in Serum or Hospital Plasma Creatinine 0.34 0.70-1.3 Below low normal [facility] [Mass/volume] mg/dL 0 [facility] in Serum or Hospital Plasma Glomerular >60 [facility] filtration [facility] rate/1.73 sq M Hospital predicted among blacks [Volume Rate/Area] in Serum or Plasma by Creatinine-bas ed formula (MDRD) Glomerular >60 [facility] filtration [facility] rate/1.73 sq M Hospital predicted among non-blacks [Volume Rate/Area] in Serum or Plasma by Creatinine-bas ed formula (MDRD) Calcium 9.5 8.5-10.1 [facility] [Mass/volume] mg/dL [facility] in Serum or Hospital Plasma ID Date Data Source [id number] 02/16/2019 05:34:44 AM EST [facility] Name Value Range Interpretation Description Data Sup porting Code Source(s) Document(s ) Magnesium 2.0 mg/dL 1.6-2.6 [facility] [Mass/volume] [facility] in Serum or Hospital Plasma ID Date Data Source [id number] 02/16/2019 05:34:44 AM EST [facility] Name Value Range Interpretation Description Data Sup porting Code Source(s) Document(s ) Albumin 2.3 g/dL 3.5-4.7 Below low normal [facility] [Mass/volume] [facility] in Serum or Hospital Plasma by Bromocresol purple (BCP) dye binding method ID Date Data Source [id number] 02/16/2019 05:32:49 AM EST [facility] Name Value Range Interpretation Description Data Sup porting Code Source(s) Document(s ) Leukocytes 8.1 K/uL 4.8-10.6 [facility] - [#/volume] in Good Blood by [facility] Automated count [facility] Erythrocytes 3.96 4.70-6.0 Below low normal [facility] - [#/volume] in M/uL 0 Good Blood by [facility] Automated [facility] Hemoglobin 12.6 14.0-18. Below low normal [facility] - [Mass/volume] in g/dL 0 Good Blood [facility] Hematocrit 39.9 % 42.0-52. Below low normal [facility] - [Volume 0 Good Fraction] of [facility] Blood by Hospital Automated count Erythrocyte mean 100.8 FL 81.0-94. Above high normal [facility] - corpuscular 0 Good volume [Entitic [facility] volume] by Hospital Automated count Erythrocyte mean 31.8 PG 27.0-35. [facility] - corpuscular 0 Good hemoglobin [facility]ist [Entitic mass] [facility] by Automated count Erythrocyte mean 31.6 30.7-37. [facility] - corpuscular g/dL 3 Good hemoglobin [facility] concentration [facility] [Mass/volume] by Automated count Erythrocyte 16.0 % 11.5-14. Above high normal [facility] - distribution 0 Good width [Ratio] by [facility] Automated count [facility] Platelets 261 K/uL 130-400 [facility] - [#/volume] in Good Blood by [facility] count [facility] Platelet mean 9.2 FL 9.2-11.8 [facility] - volume [Entitic Good volume] in Blood [facility] Automated Hospital count ID Date Data Source [id number] 02/15/2019 08:35:00 PM EST [facility] Name Value Range Interpretation Description Data Sup porting Code Source(s) Document(s ) Glucose 96 MG/DL 65-110 [facility] [Mass/volume] [facility] in Blood by [facility] Automated test strip ID Date Data Source [id number] 02/15/2019 07:28:53 PM EST [facility] Bedside shift change report given to VIANNEY MOSCOSO RN (oncoming nurse) by NASRIN PITTS (offgoing nurse). Report included the fo llowing information SBAR,Kardex, Intake/Output, MAR, Recent Results, Med Rec Status and Cardiac RhythmNSR. Name Value Range Interpretation Code Description Data Harriett rce(s) Supporting Document(s ) ID Date Data Source [id number] 02/15/2019 09:15:58 PM EST [facility] Name Value Range Interpretation Description Data Sup porting Code Source(s) Document(s ) Sodium 122 40-220 [facility] [Moles/volu MMOL/L [facility]] in Hospital Urine ID Date Data Source [id number] 02/15/2019 09:10:17 PM EST [facility] Name Value Range Interpretation Description Data Sup porting Code Source(s) Document(s ) Osmolality of 771 931-2519 [facility] Urine MOSM/kg [facility] H2O Hospital ID Date Data Source [id number] 02/15/2019 05:38:52 PM EST [facility] Name Value Range Interpretation Description Data Sup porting Code Source(s) Document(s ) Glucose 114 MG/DL 65-110 Above high normal [facility] [Mass/volume] [facility] in Blood by [facility] Automated test strip ID Date Data Source [id number] 02/15/2019 04:24:03 PM EST [facility] PULMONARY/ CCM- Consult NotePatient: Ivelisse Carlin Sex: male DOA: 02/08/2019Date of : [birth year] Age: 68 y.o. LOS: LOS: 7 daysHPI: step down.Evelio Carlin is a 68 y.o. 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 Authorizing Providercefepime 2 gram 2 g IVPB 2 g by IntraVENous route e very eight (8) hours.02/12/19 Yes Christos Lopez MDheparin sodium,porcine (HEPARIN, PORCINE,) 5,000 unit/mL injection 1 mL bySubCUTAneous route every twelve (12) h ours every twelve (12) hours. 02/12/19Yes Christos Lopez, MDpantoprazole (PROTONI X) 40 mg granules for oral suspension 40 mg by Per NG tuberoute Daily (before breakf ast). 02/13/19 Yes SimranzaChristos lopez, MDpredniSONE (DELTASONE) 10 mg tablet Ta ke 20 mg by mouth daily. 02/12/19 YesPaulmaLeisa obrienr, MDpredniSONE (DELTAS ONE) 10 mg tablet Take 10 mg by mouth daily (with breakfast).02/12/19 Yes Christos Lopez, MDmultivitamin (MULTI-DELYN, WELLESSE) liqd 5 mL by Per G Tube route daily. YesProvider, Historicalvalproic acid, as sodium salt, (DEPAKENE) 250 mg/ 5 mL (5 mL) soln oral [id number] mg by Per G Tube route every twelve (12) hours. Roberto fitzpatrick Provider, Historicalacetylcysteine (MUCOMYST) 100 mg/mL (10 %) nebulizer so lution Take 4 mL byinhalation two (2) times a day. Yes Provider, Historicalzinc oxid e 10 % topical cream Apply to affected area daily. Ribbon around GTsite Yes Provid er, Historicalomeprazole (PRILOSEC) 2 mg/mL susp 2 mg/mL oral suspension (compounded ) 40 mg byPer G Tube route daily. Yes Provider, Historicalsilver sulfADIAZINE (SILVADENE) 1 % topical cream Apply to affected area two(2) times a day. 1 inch ribbon- right edge Yes Provider, Historicalcholestyramine-aspartame (QUES [place] LIGHT) 4 gram packet Take 1 Packet by mouthtwo (2) times a day.Patient taking differently: 4 g two (2) times a day. Via G tube. 01/24/19 YesMili Hills DOcl orazepate (TRANXENE) 3.75 mg tablet 1 Tab by Per G Tube route nightly. MaxDaily Amoun t: 3.75 mg. 12/30/18 Yes Mili Hills DOcinacalcet (SENSIPAR) 30 mg tablet Cecilio e 2 Tabs by mouth daily.Patient taking differently: 60 mg daily. Via G tube 12/14 10/31 Yes Mili Hills DOlamoTRIgine (LAMICTAL) 25 mg tablet 2 Tabs by Per G Tube route two (2) times aday. 12/30/18 Yes Mili Hills DOalbuterol-ipratropium (DUO-NEB) 2.5 mg-0.5 mg/3 ml nebu 3 mL by Nebulizationroute every six (6) hours. E very 6 hours while awake 12/30/18 Yes Mili Hills DObudesonide (PULMICORT) 0.5 mg/2 mL nbsp 2 mL by Nebulization route two (2) timesa day. 12/30/18 Yes Mili Hills DOacetaminophen (TYLENOL) 32MG/ML soln solution Take 20.3 mL by mouth ever y four(4) hours as needed for Pain or Fever. 01/24/19 Mili Hills DOinfluenza vaccine 2018-, 65 yrs+,,PF, (FLUZONE HIGH-DOSE) syrg injection 0.5mL by Intra MUSCular route PRIOR TO DISCHARGE. 01/24/19 Mili Hills DObacitracin 500 unit/g escobar ointment Apply 1 Packet to affected area two (2) timesa day. Indications: minor s kin infection due to bacteria, facial scabs 12/30/18Mili Hills SANDROchana Known Aller giesPast Surgical History:Procedure Laterality Date HX GASTROSTOMY PEG- rep laced 11/2018History reviewed. 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 Use Smoking status: Never Smoker Smokeless tobacco: Never UsedSubstance a nd Sexual Activity Alcohol use: No Drug use: NoReview of SystemsPertinent items are noted in the History of Present Illness.Physical Exam:Current medication s:Current Facility-Administered Medications: ALPRAZolam (XANAX) tablet 0.25 mg, 0.25 mg, Per G Tube, QID PRN, Christos Lopez MD methylPREDNISolone (PF) (Solu-MEDROL) i njection 40 mg, 40 mg, IntraVENous,Q12H, Chay Palma MD, 40 mg at 0910 budesonide (PULMICORT) 500 mcg/2 ml nebulizer suspension, 500 mcg,N ebulization, BID RT, Christos Lopez MD, 500 mcg at 02/15/19 0835 albuterol-ipratro pium (DUO-NEB) 2.5 MG-0.5 MG/3 ML, 3 mL, Nebulization, Q6HRT, Stella Hamilton MD, 3 mL at 02/15/19 1437 acetylcysteine (MUCOMYST) 100 mg/mL (10 %) nebulizer so lution 400 mg, 4 mL,Nebulization, TID RT, Krystian Monae MD, 400 mg at 02/15/19 08 35 sodium chloride (NS) flush 5-10 mL, 5-10 mL, IntraVENous, PRN, Hillary Palma MD cinacalcet (SENSIPAR) tablet 60 mg, 60 mg, Oral, DAILY, Justin Palma MD, 60 mg at 02/15/19 0911 lamoTRIgine (LaMICtal) tablet 50 mg, 50 mg, Per G Tube, BID, Chay Flores MD, 50 mg at 02/15/19 0911 multivitami n (ONE A DAY) tablet 1 Tab, 1 Tab, Per G Tube, DAILY,Chay Palma MD, 1 Tab at 02/15/19 0911 valproic acid (as sodium salt) (DEPAKENE) 250 mg/5 mL (5 m L) oral mg, 750 mg, Oral, Q12H, Chay Palma MD, 750 mg at 1 04/17/18 0909 sodium chloride (NS) flush 5-40 mL, 5-40 mL, IntraVENous, Q8H, Chay Oswald MD, 10 mL at 02/15/19 1434 sodium chloride (NS) flush 5-40 m L, 5-40 mL, IntraVENous, PRN, Chay Palma MD, 10 mL at 1400 acetaminophen (TYLENOL) tablet 650 mg, 650 mg, Oral, Q4H PRN, Chay Wiley MD, 650 mg at 02/09/19 2239 heparin (porcine) injection 5,000 Units, 5,000 Units, SubCUTAneous, Q12H,Chay Palma MD, 5,000 Units at 02/15/19 1144 0.9% sodium chloride infusion, 100 mL/hr, IntraVENous, CONTIN UOUS,Chay Palma MD, Last Rate: 100 mL/hr at 02/15/19 1434, 100 mL/hr at 02/15/19 1434 pantoprazole (PROTONIX) granules for oral suspension 40 mg, 40 m g, Per NGtube, ACB, Chay Palma MD, 40 mg at 02/15/19 0911 ondansetron (ZOFRAN) injection 4 mg, 4 mg, IntraVENous, Q6H PRN,Chay Palma MD ce fepime (MAXIPIME) 2 g in 0.9% sodium chloride (MBP/ADV) 100 mL MBP, 2 g,IntraVENous, Q 8H, Chay Palma MD, Last Rate: 200 mL/hr at 526, 2 g at 1526 insulin lispro (HUMALOG) injection, , SubCUTAneous, AC&HS, Tali Palma MD, 2 Units at 02/15/19 1254 dextrose 40% (GLUTOSE) oral gel 1 Tube, 15 g, Oral, PRN, Chay Palma MD glucagon (GLUCAGEN) injection 1 mg, 1 mg , SubCUTAneous, PRN, Chay Flores MD dextrose (D50) infusion 25 g, 50 mL , IntraVENous, PRN, Latrell Palma MDDataVisit VitalsBP 122/77 (BP 1 Locati on: Left arm, BP Patient Position: At rest)Pulse 72Temp 97.1 F (36.2 C)Resp 18Ht 5' 2" (1.575 m)Wt 61.2 kg (135 lb)SpO2 97%BMI 24.69 kg/m Intake and Output:Puls e OX:SpO2 Readings from Last 6 Encounters:02/15/19 97%01/24/19 93%12/30 96%11/27/18 91%09/26/15 96%@LASTSAO2(6)@PHYSICAL EXAM:General: Lethargic,responding.Head: Normocephalic, without obvious abnormality, atraumatic. Eyes: Conjunctivae clear, anicteric sclerae. Pupils are equalNose: Nares n ormal. No drainage or sinus tenderness.Throat: Lips, mucosa, and tongue normal. No ThrushNeck: Supple, symmetrical, no adenopathy, thyroid: no n tender no carotid bruit and no JVD.Back: Symmetric, No CVA tenderness.Lungs: Scattered rhonchi,Chest wall: No tenderness or deformity. No Accessory muscle use.He art: Regular rate and rhythm, no murmur, rub or gallop.Abdomen: Soft, non-tende r. Not distended. Bowel sounds normal. No massesExtremities: Extremities normal, a traumatic, No cyanosis. No edema. No clubbingSkin: Texture, turgor normal . No rashes or lesions. Not JaundicedLymph nodes: Cervical, supraclavicular normal. Psych: Good insight. Not depressed. Not anxious or agitated.Neurologic: EOMs int act. No facial asymmetry. No aphasia or slurred speech.Most recent labs:Recent L abs 02/14/1905WBC 8.7 9.6 8.4HGB 13.4* 12. 5* 13.2*HCT 42.4 38.6* 41.6*PLT 287 305 300Recent Labs 02/14/1905 3 NA 135* 136 136K 4.6 4.5 4.4CL 98 98 98CO2 37* 33* 36*GLU 118* 119* 114 *BUN 12 15 10CREA 0.36* 0.27* 0.32*CA 9.3 9.4 9.3MG 1.9 1.8 2.0INR 1.1 -- --No resu lts for input(s): PH, PCO2, PO2, HCO3, FIO2 in the last 72 hours.ABG:No results for input(s): PH, PCO2, PO2, HCO3, FIO2 in the last 72 hours.Cultures:No results found for: SDESLab ResultsComponent Value Date/Time Culture result: NO GROWTH 5 DAYS 019 05:19 PM Culture result: NO GROWTH 5 DAYS 02/08/2019 05:00 PM Culture result: NO G ROWTH 5 DAYS 01/21/2019 11:30 PM Culture result: NO GROWTH 2 DAYS 01/21/2019 11:1 5 PM Culture result: NO GROWTH 5 DAYS 01/21/2019 11:00 PM Culture result: NO G ROWTH 1 DAY 01/10/2019 08:58 AM Culture result: NO GROWTH 5 DAYS 01/10/2019 07:5 5 AM Culture result: NO GROWTH 5 DAYS 01/10/2019 07:40 AM Culture result: NO G ROWTH 5 DAYS 12/29/2018 11:23 AM Culture result: NO GROWTH 5 DAYS 12/29/2018 11:0 0 AM Culture result: 10,000 to 50,000 COLONIES/mL KLEBSIELLA PNEUMONIAE (A) 11:00 AM Culture result: 50,000-100,000 COLONIES/mL PSEUDOMONAS A ERUGINOSA (A)12/29/2018 11:00 AM Culture result: (A) 12/29/2018 11:00 AM 10,000 to 50,000 COLONIES/mL STAPHYLOCOCCUS EPIDERMIDIS Culture result: NO GROWTH 2 DAYS 12/24/2018 09:45 AM Culture result: NO GROWTH 5 DAYS 12/23/2018 12:00 PM Cultur e result: NO GROWTH 5 DAYS 12/23/2018 11:40 AM Culture result: NO GROWTH 4 DAYS 09/2018 12:30 PM Culture result: NO GROWTH 4 DAYS 12/19/2018 12:30 PM Culture result: NO GROWTH 1 DAY 12/12/2018 08:04 PM Culture result: NO GROWTH 5 DAYS 12/12/2018 07:4 0 PM Culture result: NO GROWTH 5 DAYS 12/12/2018 07:40 PM Culture result: NO G ROWTH 2 DAYS 11/20/2018 09:00 AM Culture result: NO GROWTH 5 DAYS 11/07/2018 08:1 0 PM Culture result: NO GROWTH 5 DAYS 11/07/2018 08:00 PMImages:Cta Chest W Or W Wo ContResult Date: 11/08/2018Examination: CTA Chest ? PE angiography History: Hypo magdy; rule out pneumoniaversus pulmonary embolism Priors: None Technique: Low-d ose, multiplanar,helical CTA chest was performed with bolus IV injection from lung apices tobases. 3D-reformatted images were obtained and reviewed on a Smart[employer] Vitaminsate d viewingworkstation and directly supervised. Contrast: A total of 71 mL of Isovue-370 was administered intravenously for this procedure. Findings: No evidence ofpulmo nary embolism is seen. There is decreased size of the right hemithorax fromchronic scarring and retraction with mediastinal shift left to right.Additional area of c onsolidation is seen in the right lower lobe and suggestssuperimposed pneumonia with subsegmental atelectasis. Subsegmental atelectasisis also noted in the left jorge g base, with pleural parenchymal scarring. Lowlung volumes are seen. No pneumothora x seen. Aorta normal in caliber withoutaneurysm or dissection. Mediastin um no adenopathy. Mediastinal shift is seen inthe left and right as a result of chr onic changes in the right hemithorax.Heart shows no chamber enlargement or pericard ial effusion. No acute fracturesseen in the bony thorax, sternum, manubrium and rib cage. Multiple compressiondeformities are seen in the mid and lower thoracic spine , with superimposedspondyloarthropathy. Cannot exclude acute fracture.Impression : No evidence of pulmonary embolism Right lower lobe pneumoniasuggested. Incidenta l scarring and retraction in the right hemithorax fromremote/chronic inflammato ry disease and/or trauma. Bibasilar subsegmentalatelectasis. Report Electron ically Signed By: Pawel Zafar M.D. -11/08/2018 12:40 AMXr Chest PortResult D ate: 11/07/2018XR CHEST PORT CLINICAL INDICATION PROVIDED:. "sob." COMPARISON: . 09/26/2015.FINDINGS:. The pericardial/cardiac silhouette is enlarg ed in the transversedimension. There is no pulmonary vascular congestion or interst itial edema.Linear density in the left lung base and faint densities in the right mi d tolower lung likely represent atelectasis. There is no lobar consolidation oreffusi on. There is no pneumothorax.IMPRESSION:. Bilateral lower lung atelectasis. No donna dence of consolidation oreffusion.Assessment/PlanActive Problem s: SOB (shortness of breath) (02/08/2019) Pressure injury of right heel, stage 2 ( HCC) (02/09/2019) Leg wound, right, initial encounter (02/09/2019) Acute resp failur e combined better. pneumonia acute copd exacerbationPLAN,Monitoring,bipap prn fo r resp distress,abx as per id.Steroid nebbipap prn and at night.NebGi /dvt pro phylaxis.D/w nursing staff.Stella Hamilton MDNovember 2018The billing code submi tted in association with this evaluation also includes thetime to review patient's yuan or records, communicate with the physician team,obtain corroborating data, and disc uss the risk and benefits of the proposedmanagement plan with the patient and their family >30 minutes. Name Value Range Interpretation Code Description Data Harriett rce(s) Supporting Document(s ) ID Date Data Source [id number] 02/15/2019 12:39:08 PM EST [facility] Name Value Range Interpretation Description Data Sup porting Code Source(s) Document(s ) Glucose 151 MG/DL 65-110 Above high normal [facility] [Mass/volume] [facility] in Blood by Hospital Automated test strip ID Date Data Source [id number] 02/15/2019 12:08:55 PM EST [facility] ID Progress Note02/15/2019Subjective:Pt a waiting J- tube placement on SaturdayPatient with MR non verbal,unable to provide his tory.AfebrileWbc trending down.No new event overnightObjective:Vitals:Patient Vitals for the past 24 hrs: BP Temp Pulse Resp [id number]/15/19 0757 121/51 97.7 F (36.5 C) 75 18 96 %02/15/19 0400 109/53 97 F (36.1 C) 78 18 94 %02/15/19 0110 - - - - 92 % 02/14/19 2344 160/78 97 F (36.1 C) 67 18 95 %02/14/192010 - - - - 93 %02/14/192002 - - - - 93 %02/14/191955 (!) 140/91 97.1 F (36.2 C) 76 18 95 %02/14/19 1551 122/80 98.4 F (36.9 C) 80 18 95 %Tmax: Temp (24hrs), Av.4 F (36.3 C), Min:97 F (36.1 C), Max:98.4 F(36.9 C)Physical Exam:General: Awake non verabl cooperat britni, no distressEyes: Conjunctivae/corneas clear. PERRLNeck: Supple, symmetrical, t rachea midline, no adenopathyLungs: Bilateral breath sounds with basal crack les..Heart: Regular rate and rhythm, S1, S2 normal, no murmurAbdomen: Soft, non-te nder. Bowel sounds normal. No masses, No organomegaly.+pegBack: No CVA tenderne ss.Extremities: No cyanosis,chronic lymphedemaPulses: 2+ and symmetric all e xtremities.Skin: Skin color, texture, turgor normal. No rashes or lesionsCurrent Faci lity-Administered MedicationsMedication Dose Route Frequency ALPRAZolam (XANAX) tabl et 0.25 mg 0.25 mg Per G Tube QID PRN methylPREDNISolone (PF) (Solu-MEDROL) in jection 40 mg 40 mg IntraVENous Q12H budesonide (PULMICORT) 500 mcg/2 ml nebu lizer suspension 500 mcg NebulizationBID RT albuterol-ipratropium (DUO-NEB) 2.5 MG-0 .5 MG/3 ML 3 mL Nebulization Q6H RT acetylcysteine (MUCOMYST) 100 mg/mL (10 %) nebulizer solution 400 mg 4 mLNebulization TID RT sodium chloride ( NS) flush 5-10 mL 5-10 mL IntraVENous PRN cinacalcet (SENSIPAR) tablet 60 mg 60 m g Oral DAILY lamoTRIgine (LaMICtal) tablet 50 mg 50 mg Per G Tube BID multivitami n (ONE A DAY) tablet 1 Tab 1 Tab Per G Tube DAILY valproic acid (as sodium salt) (D EPAKENE) 250 mg/5 mL (5 mL) oral solution 750mg 750 mg Oral Q12H sodium chloride (NS) flush 5-40 mL 5-40 mL IntraVENous Q8H sodium chloride (NS) flush 5-40 mL 5-40 mL IntraVENous PRN acetaminophen (TYLENOL) tablet 650 mg 650 mg Oral Q4H PRN hepa rin (porcine) injection 5,000 Units 5,000 Units SubCUTAneous Q12H 0.9% sodium chl oride infusion 100 mL/hr IntraVENous CONTINUOUS pantoprazole (PROTONIX) gran ules for oral suspension 40 mg 40 mg Per NG tubeACB ondansetron (ZOFRAN) injection 4 mg 4 mg IntraVENous Q6H PRN cefepime (MAXIPIME) 2 g in 0.9% sodium chloride ( MBP/ADV) 100 mL MBP 2 gIntraVENous Q8H insulin lispro (HUMALOG) injection Sub CUTAneous AC&HS dextrose 40% (GLUTOSE) oral gel 1 Tube 15 g Oral PRN glucagon (GLU CAGEN) injection 1 mg 1 mg SubCUTAneous PRN dextrose (D50) infusion 25 g 50 mL Intr aVENous PRNLabs:Recent Labs 02/14/1905WBC 8.7 9.6 8.4 HGB 13.4* 12.5* 13.2*PLT 287 305 300BUN 12 15 10CREA 0.36* 0.27* 0.32*Cultures:Lab Res ultsComponent Value Date/Time Culture result: NO GROWTH 5 DAYS 02/08/2019 05:19 PM Cul ture result: NO GROWTH 5 DAYS 02/08/2019 05:00 PM Culture result: NO GROWTH 5 DAY S 01/21/2019 11:30 PMRadiology:No results found.Assessment: Aspiration pneumonia Acute COPD exacerbation. Acute respiratory failure with hypoxia. Dysphagia Atelec tasis Plan:1. Continue IV cefepime2. Follow cultures.Monica Gomez MDNovember PM Name Value Range Interpretation Code Description Data Harriett rce(s) Supporting Document(s ) ID Date Data Source [id number] 02/15/2019 12:56:36 PM [facility] Range Interpretation Description Data Sup porting Code Source(s) Document(s ) Urate 2.2 mg/dL 3.5-7.2 Below low normal [facility] - Good [Mass/volu [facility]] in Hospital Serum or Plasma ID Date Data Source [id number] 02/15/2019 12:56:36 PM EST [facility] Range Interpretation Description Data Sup porting Code Source(s) Document(s ) NOLOINC 3.110 0.360-3.7 [facility] - Good uIU/mL [address] [place] [address] This assay result should be used in conj unction with information available from clinical evaluation and other diagnostic procedures. 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 LOS: 7 daysThis is medicine coverage for dr Baum bjective:Patient was seen earlier today. Pt is awake/ non verbal/ hemodynamically st able.J-tube placement , tomorrow. No fever/ chills/ sob/ cp/ n/ v/ d, as per RN.ROS- --- As per RN, unremarkable.Pt is seen forPneumonia right baseAtelectasis LLLCo pdgerdPulmonary embolismMental retardationNew onset hyponatremiaObjective:Visit Vitals BP 121/51 (BP 1 Location: Left arm, BP Patient Position: At rest)Pulse 75Temp 9 7.7 F (36.5 C)Resp 18Ht 5' 2" (1.575 m)Wt 61.2 kg (135 lb)SpO2 96%BMI 24.69 kg/m P hysical Exam: General: WD, thin. awake, cooperative, no acute distress. HEENT: NC, Atraumatic. PERRLA, anicteric sclerae.pink conjunctiva Lungs: B/l ae. No Wheezing/Rhonchi/Rales. He art: Regular rhythm, No murmur, No Rubs, No Gallops.s1,s2 Abdomen: Soft, Non distended, Non tender. +Bowel sounds.pos peg Extremities: No c/c/e. P sych: Not anxious or agitated. Neurologic: No acute neurological defici t. Skin : No rash Neck : Supple, no j vd/ bruitIntake and Output:No intake or output data in the 24 hours ending 02/15 1044Lab/Data Reviewed:Recent Labs 02/14/1905254WB C 8.7 9.6 8.4HGB 13.4* 12.5* 13.2*PLT 287 305 300BUN 12 15 10CREA 0.36* 0.27* 0.32*NA 135* 136 136CL 98 98 98K 4.6 4.5 4.4MG 1.9 1.8 2.0CA 9.3 9.4 9.3Special Requests:Da te Value Ref Range Tecuxe2002/08/2019 NO SPECIAL REQUESTS FinalCulture result:D ate Value Ref Range Adaqyy2502/08/2019 NO GROWTH 5 DAYS FinalXR Results (most re cent):Results from Hospital Encounter encounter on 02/08/19XR CHEST SNGL V Rob rative CHEST one viewHISTORY: Followup lung pathology.Comparison is made to previous studies.Accounting for differences in technique there has been no significant change ofright basal infiltrate/effusion. There is a poor inspiratory effort and p atientrotation towards the right.No other interval change is noted. Impression IMP RESSION: No significant change. CXRMedications Reviewed:Current Facility -Administered MedicationsMedication Dose Route Frequency ALPRAZolam (XANAX) tabl et 0.25 mg 0.25 mg Per G Tube QID PRN methylPREDNISolone (PF) (Solu-MEDROL) in jection 40 mg 40 mg IntraVENous Q12H budesonide (PULMICORT) 500 mcg/2 ml nebu lizer suspension 500 mcg NebulizationBID RT albuterol-ipratropium (DUO-NEB) 2.5 MG-0 .5 MG/3 ML 3 mL Nebulization Q6H RT acetylcysteine (MUCOMYST) 100 mg/mL (10 %) nebulizer solution 400 mg 4 mLNebulization TID RT sodium chloride ( NS) flush 5-10 mL 5-10 mL IntraVENous PRN cinacalcet (SENSIPAR) tablet 60 mg 60 m g Oral DAILY lamoTRIgine (LaMICtal) tablet 50 mg 50 mg Per G Tube BID multivitami n (ONE A DAY) tablet 1 Tab 1 Tab Per G Tube DAILY valproic acid (as sodium salt) (D EPAKENE) 250 mg/5 mL (5 mL) oral solution 750mg 750 mg Oral Q12H sodium chloride (NS) flush 5-40 mL 5-40 mL IntraVENous Q8H sodium chloride (NS) flush 5-40 mL 5-40 mL IntraVENous PRN acetaminophen (TYLENOL) tablet 650 mg 650 mg Oral Q4H PRN hepa rin (porcine) injection 5,000 Units 5,000 Units SubCUTAneous Q12H 0.9% sodium chl oride infusion 100 mL/hr IntraVENous CONTINUOUS pantoprazole (PROTONIX) gran ules for oral suspension 40 mg 40 mg Per NG tubeACB ondansetron (ZOFRAN) injection 4 mg 4 mg IntraVENous Q6H PRN cefepime (MAXIPIME) 2 g in 0.9% sodium chloride ( MBP/ADV) 100 mL MBP 2 gIntraVENous Q8H insulin lispro (HUMALOG) injection Sub CUTAneous AC&HS dextrose 40% (GLUTOSE) oral gel 1 Tube 15 g Oral PRN glucagon (GLU CAGEN) injection 1 mg 1 mg SubCUTAneous PRN dextrose (D50) infusion 25 g 50 mL Intr aVENous PRNAssessmentActive Problems: SOB (shortness of breath) (02/08/2019) Pres sure injury of right heel, stage 2 (HCC) (02/09/2019) Leg wound, right, initial encounter (02/09/2019)pneumonia right baseAtelectasis LLLCopdgerdPulmonary emb olismMental retardationDysphagia/ pegParkinson'shyponatremiaPlan1. Fluid r esyriction2. Urine sodium3. U&S osmolality4. Bd5. abx6. Hydration7. Labs8. GI f/uCont inue current treatment.My assessment, plan of care, findings, medications, side effect s etc werediscussed with:[X]nursing [ ]PT/OT[ ]respiratory therapy [ ][ ]sabrina campbell [ ]Rosalio Frankel MDWh[facility] 20189:11 AM Name Value Range Interpretation Code Description Data Harriett rce(s) Supporting Document(s ) ID Date Data Source [id number] 02/15/2019 09:28:21 AM [facility] Progress NotePatient: Evelio Carlin Sex: male DOA: 02/08/2019Date of : 1950 Age: 68 y.o. LOS: 7 daysThis is medicine coverage for dr Baum bjective:Patient was seen earlier today. Pt is awake/ non verbal/ hemodynamically st able.J-tube placement , tomorrow. No fever/ chills/ sob/ cp/ n/ v/ d, as per RN.ROS- --- As per RN, unremarkable.Pt is seen forPneumonia right baseAtelectasis LLLCo pdgerdPulmonary embolismMental retardationObjective:Visit VitalsBP 121/ 51 (BP 1 Location: Left arm, BP Patient Position: At rest)Pulse 75Temp 97.7 F ( 36.5 C)Resp 18Ht 5' 2" (1.575 m)Wt 61.2 kg (135 lb)SpO2 96%BMI 24.69 kg/m Physical Exam: General: WD, thin. awake, cooperative, no acute distress. HEENT: NC, Atraumatic. PERRLA, anicteric sclerae.pink conjunctiva Elham ngs: B/l ae. No Wheezing/Rhonchi/Rales. Heart: Regular rhythm, No murm ur, No Rubs, No Gallops.s1,s2 Abdomen: Soft, Non distended, Non tender. +Bowel sounds.pos peg Extremities: No c/c/e. Psych: Not anxious or agitated. Neurologic: No acute neurological deficit. Skin : No rash Neck : Supple, no jvd/ bruitIntake and Output:N o intake or output data in the 24 hours ending 02/15/19 0911Lab/Data Reviewed:Re cent Labs 02/14/1905WBC 8.7 9.6 8.4HGB 13.4* 12. 5* 13.2*PLT 287 305 300BUN 12 15 10CREA 0.36* 0.27* 0.32*NA 135* 136 136CL 98 98 98K 4 .6 4.5 4.4MG 1.9 1.8 2.0CA 9.3 9.4 9.3Special Requests:Date Value Ref Range Xristy7910/2018 NO SPECIAL REQUESTS FinalCulture result:Date Value Ref Range [id number] NO GROWTH 5 DAYS FinalXR Results (most recent):Results from Hospital Encounter encounter on 02/08/19XR CHEST SNGL V Narrative CHEST one viewHISTORY: Followu p lung pathology.Comparison is made to previous studies.Accounting for differen martine in technique there has been no significant change ofright basal infiltr ate/effusion. There is a poor inspiratory effort and patientrotation towards the r ight.No other interval change is noted. Impression IMPRESSION: No significant ch raysa. CXRMedications Reviewed:Current Facility-Administered MedicationsMedicat ion Dose Route Frequency ALPRAZolam (XANAX) tablet 0.25 mg 0.25 mg Per G Tube QID P RN methylPREDNISolone (PF) (Solu-MEDROL) injection 40 mg 40 mg IntraVENous Q12H budesonide (PULMICORT) 500 mcg/2 ml nebulizer suspension 500 mcg Nebulizati onBID RT albuterol-ipratropium (DUO- NEB) 2.5 MG-0.5 MG/3 ML 3 mL Nebulization Q6H RT acetylcysteine (MUCOMYST) 100 mg/mL (10 %) nebulizer solution 400 mg 4 mLNebulizat ion TID RT sodium chloride (NS) flush 5-10 mL 5-10 mL IntraVENous PRN cinacalcet (SENSIPAR) tablet 60 mg 60 mg Oral DAILY lamoTRIgine (LaMICtal) tablet 50 mg 50 mg Per G Tube BID multivitamin (ONE A DAY) tablet 1 Tab 1 Tab Per G Tube DAILY va lproic acid (as sodium salt) (DEPAKENE) 250 mg/5 mL (5 mL) oral solution 750mg 750 mg Oral Q12H sodium chloride (NS) flush 5-40 mL 5-40 mL IntraVENous Q8H sodium chlo ride (NS) flush 5-40 mL 5-40 mL IntraVENous PRN acetaminophen (TYLENOL) tablet 650 mg 650 mg Oral Q4H PRN heparin (porcine) injection 5,000 Units 5,000 Units SubCU TAneous Q12H 0.9% sodium chloride infusion 100 mL/hr IntraVENous CONTINUOUS pantop razole (PROTONIX) granules for oral suspension 40 mg 40 mg Per NG tubeACB ondansetron (ZOFRAN) injection 4 mg 4 mg IntraVENous Q6H PRN cefepime (MAXIPIME) 2 g in 0.9% sodium chloride (MBP/ADV) 100 mL MBP 2 gIntraVENous Q8H insulin lispro (HUMALOG) injection SubCUTAneous AC&HS dextrose 40% (GLUTOSE) oral gel 1 Tube 15 g Oral PRN glucagon (GLUCAGEN) injection 1 mg 1 mg SubCUTAneous PRN dextrose (D 50) infusion 25 g 50 mL IntraVENous PRNAssessmentActive Problems: SOB (shor tness of breath) (02/08/2019) Pressure injury of right heel, stage 2 (HCC) () Leg wound, right, initial encounter (02/09/2019)pneumonia right baseAtelecta sis LLLCopdgerdPulmonary embolismMental retardationDysphagia/ pegparkinson'sPlan 1. Continue o22. Bd3. abx4. Hydration5. Labs6. GI f/uContinue current treatment. My assessment, plan of care, findings, medications, side effects etc werediscus sed with:[X]nursing [ ]PT/OT[ ]respiratory therapy [ ]Dr.[ ]family [ ]PatientChristos Lopez MDNovember 20189:11 AM Name Value Range Interpretation Code Description Data Harriett rce(s) Supporting Document(s ) ID Date Data Source [id number] 02/15/2019 09:11:01 AM EST [facility] - [facility] Name Value Range Interpretation Description Data Sup porting Code Source(s) Document(s ) Glucose 96 MG/DL 65-110 [facility] - Good [Mass/volume] Taoist in Blood by Hospital Automated test strip ID Date Data Source [id number] 02/15/2019 05:41:53 AM EST [facility] - [facility] Name Value Range Interpretation Description Data Sup porting Code Source(s) Document(s ) Sodium 135 136-145 Below low normal [facility] - Good [Moles/volume] mmol/L Taoist in Serum or Hospital Plasma Potassium 4.6 3.5-5.1 [facility] - Good [Moles/volume] mmol/L Taoist in Serum or Hospital Plasma Chloride 98 98-107 [facility] - Good [Moles/volume] mmol/L Taoist in Serum or Hospital Plasma Carbon 37 21-32 Above high normal [facility] - Good dioxide, total mmol/L Taoist [Moles/volume] Hospital in Serum or Plasma Anion gap in 5 mmol/L 10-20 Below low normal [facility] - Go od Serum or Taoist Plasma Hospital Glucose 118 74-106 Above high normal [facility] - Good [Mass/volume] mg/dL Taoist in Serum or Hospital Plasma Urea nitrogen 12 mg/dL 7-18 [facility] - Good [Mass/volume] Taoist in Serum or Hospital Plasma Creatinine 0.36 0.70-1.3 Below low normal [facility] - Good [Mass/volume] mg/dL 0 Taoist in Serum or Hospital Plasma Glomerular >60 [facility] - Good filtration Taoist rate/1.73 sq M Hospital predicted among blacks [Volume Rate/Area] in Serum or Plasma by Creatinine-bas ed formula (MDRD) Glomerular >60 [facility] - Good filtration Taoist rate/1.73 sq M Hospital predicted among non-blacks [Volume Rate/Area] in Serum or Plasma by Creatinine-bas ed formula (MDRD) Calcium 9.3 8.5-10.1 [facility] - Good [Mass/volume] mg/dL Taoist in Serum or Hospital Plasma ID Date Data Source [id number] 02/15/2019 05:41:53 AM EST [facility] - Good [facility] Name Value Range Interpretation Description Data Sup porting Code Source(s) Document(s ) Magnesium 1.9 mg/dL 1.6-2.6 [facility] - Good [Mass/volume] Taoist in Serum or Hospital Plasma ID Date Data Source [id number] 02/15/2019 06:11:32 AM EST [facility] - Good [facility] Name Value Range Interpretation Description Data Sup porting Code Source(s) Document(s ) Leukocytes 8.7 K/uL 4.8-10.6 [facility] - [#/volume] in Good Blood by [facility] Erythrocytes 4.19 4.70-6.0 Below low normal [facility] - [#/volume] in M/uL 0 Good Blood by [facility] Hemoglobin 13.4 14.0-18. Below low normal [facility] - [Mass/volume] in g/dL 0 Good Blood [facility] Hematocrit 42.4 % 42.0-52. [facility] - [Volume 0 Good Fraction] of Taoist Blood by [facility] Automated count Erythrocyte mean 101.2 FL 81.0-94. Above high normal [facility] - corpuscular 0 Good volume [Entitic Taoist volume] by Hospital Automated count Erythrocyte mean 32.0 PG 27.0-35. [facility] - corpuscular 0 Good hemoglobin Taoist [Entitic mass] Hospital by Automated count Erythrocyte mean 31.6 30.7-37. [facility] - corpuscular g/dL 3 Good hemoglobin [facility] Hospital [Mass/volume] by Automated count Erythrocyte 16.0 % 11.5-14. Above high normal [facility] - distribution 0 Good width [Ratio] by Taoist Automated count Hospital Platelets 287 K/uL 130-400 [facility] - [#/volume] in [facility] Blood by Taoist Automated count Hospital Platelet mean 9.5 FL 9.2-11.8 [facility] - volume [Entitic Good volume] in [facility] by Automated Hospital count Segmented 84 % 48.0-72. Above high normal [facility] - neutrophils/100 0 Good leukocytes in [facility] Lymphocytes/100 13 % 18.0-40. Below low normal [facility] - leukocytes in 0 [facility] Monocytes/100 3 % 2.0-12.0 [facility] - leukocytes in [facility] Eosinophils/100 0 % 0.0-7.0 [facility] - leukocytes in [facility] Basophils/100 0 % 0.0-3.0 [facility] - leukocytes in [facility] Segmented 7.2 K/UL 1.5-6.6 Above high normal [facility] - neutrophils Good [#/volume] in [facility] Lymphocytes 1.1 K/UL 1.5-3.5 Below low normal [facility] - [#/volume] in [facility] Monocytes 0.3 K/UL 0.0-1.0 [facility] - [#/volume] in [facility] Eosinophils 0.0 K/UL 0.0-0.7 [facility] - [#/volume] in [facility] Basophils 0.0 K/UL 0.0-0.1 [facility] - [#/volume] in [facility] Differential [facility] - cell count [facility] method [facility] Immature 2 % 0.0-2.0 [facility] - granulocytes/100 Good leukocytes in [facility] Hospital Automated count ID Date Data Source [id number] 02/15/2019 06:09:11 AM EST [facility] - [facility] Name Value Range Interpretation Description Data Sup porting Code Source(s) Document(s ) Prothrombin 11.0 sec 9.4-11.1 BSS - Good time (PT) [facility] INR in 1.1 0.8-1.2 [facility] - Good Platelet poor Taoist plasma by Hospital Coagulation assay ID Date Data Source [id number] 02/15/2019 01:41:45 AM EST [facility] Problem: Falls - Risk ofGoal: *Absence o f FallsDescriptionDocument Samra Fall Risk and appropriate interventions in the jhon wsheet.Outcome: Progressing Towards GoalNote:Fall Risk Interventions:Mentati on Interventions: Door open when patient unattendedMedication Interventions: Eval uate medications/consider consulting pharmacyElimination Interventions: Call light in reach, Toileting schedule/hourly roundsProblem: Patient Education: Go to Patient Education ActivityGoal: Patient/Family EducationOutcome: Progres sing Towards GoalProblem: Pressure Injury - Risk ofGoal: *Prevention of pressure inj uryDescriptionDocument Butch Scale and appropriate interventions in the flowshe et.Outcome: Progressing Towards GoalNote:Pressure Injury Interventions:S ensory Interventions: Assess changes in LOC, Assess need for specialty bed,Float heel s, Keep linens dry and wrinkle-freeMoisture Interventions: Absorbent underpads, Appl y protective barrier, creamsand emollients, Check for incontinence Q2 hours and as n eededActivity Interventions: Pressure redistribution bed/mattress(bed type)Mob ility Interventions: HOB 30 degrees or less, Pressure redistributionbed/mattress (bed type)Nutrition Interventions: Document food/fluid/supplement intake, Offer supp ortwith meals,snacks and hydrationFriction and Shear Interventions: Apply protectiv e barrier, creams andemollients, Foam dressings/transparent film/skin sealants , Minimize layersProblem: Patient Education: Go to Patient Education ActivityGoal: Pa tient/Family EducationOutcome: Progressing Towards GoalProblem: General Infection C are Plan (Adult and Pediatric)Goal: Improvement in signs and symptoms of inf ectionOutcome: Progressing Towards GoalGoal: *Optimize nutritional statusOutcome: Pro gressing Towards GoalProblem: Patient Education: Go to Patient Education Activ ityGoal: Patient/Family EducationOutcome: Progressing Towards Goal Name Value Range Interpretation Code Description Data Harriett rce(s) Supporting Document(s ) ID Date Data Source [id number] 02/14/2019 09:24:18 PM EDT [facility] Name Value Range Interpretation Description Data Sup porting Code Source(s) Document(s ) Glucose 100 MG/DL 65-110 [facility] [Mass/volume] Taoist in Blood by Hospital Automated test strip ID Date Data Source [id number] 02/14/2019 07:43:15 PM EDT [facility] Bedside and Verbal shift change report g iven to Lucien Castaneda RN (oncoming nurse)by Reny Galeas RN(offgoing nurse). Repor t given with SBAR, Kardex, Intake/Output, MAR and RecentResults. Name Value Range Interpretation Code Description Data [facility] rce(s) Supporting Document(s ) ID Date Data Source [id number] 02/14/2019 05:43:45 PM EDT [facility] PULMONARY/ CCM- Consult NotePatient: Ivelisse Carlin Sex: male DOA: 02/08/2019Date of : [birth year] Age: 68 y.o. LOS: LOS: 6 daysHPI: step down.Evelio Carlin is a 68 y.o. 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 Authorizing Providercefepime 2 gram 2 g IVPB 2 g by IntraVENous route e very eight (8) hours.02/12/19 Yes Christos Lopez MDheparin sodium,porcine (HEPARIN, PORCINE,) 5,000 unit/mL injection 1 mL bySubCUTAneous route every twelve (12) h ours every twelve (12) hours. 02/12/19Yes Christos Lopez, MDpantoprazole (PROTONI X) 40 mg granules for oral suspension 40 mg by Per NG tuberoute Daily (before breakf ast). 02/13/19 Yes MalmazaLeisa lopezr, MDpredniSONE (DELTASONE) 10 mg tablet Ta ke 20 mg by mouth daily. 02/12/19 YesMalmazaLeisa lopezr, MDpredniSONE (DELTAS ONE) 10 mg tablet Take 10 mg by mouth daily (with breakfast).02/12/19 Yes Christos Lopez, MDmultivitamin (MULTI-DELYN, WELLESSE) liqd 5 mL by Per G Tube route daily. YesProvider, Historicalvalproic acid, as sodium salt, (DEPAKENE) 250 mg/ 5 mL (5 mL) soln oral emrabmas638 mg by Per G Tube route every twelve (12) hours. Roberto s Provider, Historicalacetylcysteine (MUCOMYST) 100 mg/mL (10 %) nebulizer so lution Take 4 mL byinhalation two (2) times a day. Yes Provider, Historicalzinc oxid e 10 % topical cream Apply to affected area daily. Ribbon around GTsite Yes Provid er, Historicalomeprazole (PRILOSEC) 2 mg/mL susp 2 mg/mL oral suspension (compounded ) 40 mg byPer G Tube route daily. Yes Provider, Historicalsilver sulfADIAZINE (SILVADENE) 1 % topical cream Apply to affected area two(2) times a day. 1 inch ribbon- right edge Yes Provider, Historicalcholestyramine-aspartame (QUES [place] LIGHT) 4 gram packet Take 1 Packet by mouthtwo (2) times a day.Patient taking differently: 4 g two (2) times a day. Via G tube. 01/24/19 YesMili Hills DOcl orazepate (TRANXENE) 3.75 mg tablet 1 Tab by Per G Tube route nightly. MaxDaily Amoun t: 3.75 mg. 12/30/18 Yes Mili Hills DOcinacalcet (SENSIPAR) 30 mg tablet Cecilio e 2 Tabs by mouth daily.Patient taking differently: 60 mg daily. Via G tube 12/14 10/31 Yes Mili Hills DOlamoTRIgine (LAMICTAL) 25 mg tablet 2 Tabs by Per G Tube route two (2) times aday. 12/30/18 Yes Mili Hills DOalbuterol-ipratropium (DUO-NEB) 2.5 mg-0.5 mg/3 ml nebu 3 mL by Nebulizationroute every six (6) hours. E very 6 hours while awake 12/30/18 Yes Mili Hills DObudesonide (PULMICORT) 0.5 mg/2 mL nbsp 2 mL by Nebulization route two (2) timesa day. 12/30/18 Yes Mili Hills DOacetaminophen (TYLENOL) 32MG/ML soln solution Take 20.3 mL by mouth ever y four(4) hours as needed for Pain or Fever. 01/24/19 Mili Hills DOinfluenzdevang vaccine 2018-, 65 yrs+,,PF, (FLUZONE HIGH-DOSE) syrg injection 0.5mL by Intra MUSCular route PRIOR TO DISCHARGE. 01/24/19 Mili Hills DObacitracin 500 unit/g escobar ointment Apply 1 Packet to affected area two (2) timesa day. Indications: minor s kin infection due to bacteria, facial scabs 12/30/18Mili Hills DONo Known Aller giesPast Surgical History:Procedure Laterality Date HX GASTROSTOMY PEG- rep laced 11/2018History reviewed. 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 Use Smoking status: Never Smoker Smokeless tobacco: Never UsedSubstance a nd Sexual Activity Alcohol use: No Drug use: NoReview of SystemsPertinent items are noted in the History of Present Illness.Physical Exam:Current medication s:Current Facility-Administered Medications: ALPRAZolam (XANAX) tablet 0.25 mg, 0.25 mg, Per G Tube, QID PRN, Christos Lopez MD methylPREDNISolone (PF) (Solu-MEDROL) i njection 40 mg, 40 mg, IntraVENous,Q12H, Chay Palma MD, 40 mg at 1004 budesonide (PULMICORT) 500 mcg/2 ml nebulizer suspension, 500 mcg,N ebulization, BID RT, Christos Lopez MD, 500 mcg at 02/14/19 0754 albuterol-ipratro pium (DUO-NEB) 2.5 MG-0.5 MG/3 ML, 3 mL, Nebulization, Q6HRT, Stella Hamilton MD, 3 mL at 02/14/19 1315 acetylcysteine (MUCOMYST) 100 mg/mL (10 %) nebulizer so lution 400 mg, 4 mL,Nebulization, TID RT, Krystian Monae MD, 400 mg at 02/14/19 13 15 sodium chloride (NS) flush 5-10 mL, 5-10 mL, IntraVENous, PRN, Hillary Palma MD cinacalcet (SENSIPAR) tablet 60 mg, 60 mg, Oral, DAILY, Justin Palma MD, 60 mg at 02/14/19 1004 lamoTRIgine (LaMICtal) tablet 50 mg, 50 mg, Per G Tube, BID, Chay Flores MD, 50 mg at 02/14/19 1716 multivitami n (ONE A DAY) tablet 1 Tab, 1 Tab, Per G Tube, DAILY,Chay Palma MD, 1 Tab at 02/14/19 1004 valproic acid (as sodium salt) (DEPAKENE) 250 mg/5 mL (5 m L) oral petlsvet990 mg, 750 mg, Oral, Q12H, Chay Palma MD, 750 mg at 1 04/16/18 1003 sodium chloride (NS) flush 5-40 mL, 5-40 mL, IntraVENous, Q8H, Chay Oswald MD, 10 mL at 02/14/19 1718 sodium chloride (NS) flush 5-40 m L, 5-40 mL, IntraVENous, PRN, Chay Palma MD, 10 mL at 1400 acetaminophen (TYLENOL) tablet 650 mg, 650 mg, Oral, Q4H PRN, Chay Wiley MD, 650 mg at 02/09/19 2239 heparin (porcine) injection 5,000 Units, 5,000 Units, SubCUTAneous, Q12H,Chay Palma MD, 5,000 Units at 02/14/19 1042 0.9% sodium chloride infusion, 100 mL/hr, IntraVENous, CONTIN UOUS,Chay Palma MD, Last Rate: 100 mL/hr at 02/14/19 1045, 100 mL/hr at 02/14/19 1045 pantoprazole (PROTONIX) granules for oral suspension 40 mg, 40 m g, Per Doris, ACB, Chay Palma MD, 40 mg at 02/14/19 1004 ondansetron (ZOFRAN) injection 4 mg, 4 mg, IntraVENous, Q6H PRN,Chay Palma MD ce fepime (MAXIPIME) 2 g in 0.9% sodium chloride (MBP/ADV) 100 mL MBP, 2 g,IntraVENous, Q 8H, Chay Palma MD, Last Rate: 200 mL/hr at 045, 2 g at 1045 insulin lispro (HUMALOG) injection, , SubCUTAneous, AC&HS, Tali Palma MD, Stopped at 02/08/19 2200 dextrose 40% (GLUTOSE) oral gel 1 Tube, 15 g, Oral, PRN, Chay Palma MD glucagon (GLUCAGEN) injection 1 mg, 1 mg , SubCUTAneous, PRN, Chay Flores MD dextrose (D50) infusion 25 g, 50 mL , IntraVENous, PRN, Latrell Palma MDDataVisit VitalsBP 122/80 (BP 1 Locati on: Left arm)Pulse 80Temp 98.4 F (36.9 C)Resp 18Ht 5' 2" (1.575 m)Wt 61.2 kg (1 35 lb)SpO2 95%BMI 24.69 kg/m Intake and Output:Date 02/13/19 0700 - 02/14/19 065 9 02/14/19 07 - 02/15/19 0659Shift 0570-6718 6759-7005 24 Hour Total 0700-1 859 7035-8275 24 Hour TotalINTAKENG/GT 700 700 Water Flush Volume (mL) (Feeding Tu be ) 300 300 Intake (ml) (Feeding Tube ) 400 400Shift Total(mL/kg) 700(11.4) 70 0(11.4)OUTPUTShift Total(mL/kg)NET 700 700Weight (kg) 61.2 61.2 61.2 61.2 61.2 61.2Pulse OX:SpO2 Readings from Last 6 Encounters:02/14/19 95%01/24/19 93%12/30 96%11/27/18 91%09/26/15 96%@LASTSAO2(6)@PHYSICAL EXAM:General: Lethargic,responding.Head: Normocephalic, without obvious abnormality, atraumatic. Eyes: Conjunctivae clear, anicteric sclerae. Pupils are equalNose: Nares n ormal. No drainage or sinus tenderness.Throat: Lips, mucosa, and tongue normal. No ThrushNeck: Supple, symmetrical, no adenopathy, thyroid: no n tender no carotid bruit and no JVD.Back: Symmetric, No CVA tenderness.Lungs: Scattered rhonchi,Chest wall: No tenderness or deformity. No Accessory muscle use.He art: Regular rate and rhythm, no murmur, rub or gallop.Abdomen: Soft, non-tende r. Not distended. Bowel sounds normal. No massesExtremities: Extremities normal, a traumatic, No cyanosis. No edema. No clubbingSkin: Texture, turgor normal . No rashes or lesions. Not JaundicedLymph nodes: Cervical, supraclavicular normal. Psych: Good insight. Not depressed. Not anxious or agitated.Neurologic: EOMs int act. No facial asymmetry. No aphasia or slurred speech.Most recent labs:Recent L abs 3 02/13/1904WBC 9.6 8.4 6.9HGB 12.5* 13. 2* 12.3*HCT 38.6* 41.6* 37.4*PLT 305 300 314Recent Labs 02/13/1902 4 02/13/1904NA 136 136 -- 137K 4.5 4.4 -- 4.0CL 98 98 -- 99CO2 33* 36* 37* 35*GLU 119* 114* -- 114*BUN 15 10 -- 13CREA 0.27* 0.32* -- 0.32*CA 9.4 9.3 -- 9.0MG 1.8 2.0 -- 2.0Recent Labs PH 7.47*PCO2 49*PO2 64 *HCO3 36*FIO2 21.0ABG:Recent Labs PH 7.47*PCO2 49*PO2 64*HCO3 36*FIO2 21.0Cultures:No results found for: SDESLab ResultsComponent Value Date/Time Culture result: NO GROWTH 5 DAYS 02/08/2019 05:19 PM Culture result: NO GROWTH 5 DAY S 02/08/2019 05:00 PM Culture result: NO GROWTH 5 DAYS 01/21/2019 11:30 PM Cultur e result: NO GROWTH 2 DAYS 01/21/2019 11:15 PM Culture result: NO GROWTH 5 DAYS 12/2018 11:00 PM Culture result: NO GROWTH 1 DAY 01/10/2019 08:58 AM Culture result: NO GROWTH 5 DAYS 01/10/2019 07:55 AM Culture result: NO GROWTH 5 DAYS 01/10/2019 07:4 0 AM Culture result: NO GROWTH 5 DAYS 12/29/2018 11:23 AM Culture result: NO G ROWTH 5 DAYS 12/29/2018 11:00 AM Culture result: 10,000 to 50,000 COLONIES/mL KLE BSIELLA PNEUMONIAE (A)12/29/2018 11:00 AM Culture result: 50,000-100,000 COLONIES/ mL PSEUDOMONAS AERUGINOSA (A)12/29/2018 11:00 AM Culture result: (A) 12/29/2018 11:00 AM 10,000 to 50,000 COLONIES/mL STAPHYLOCOCCUS EPIDERMIDIS Culture resul t: NO GROWTH 2 DAYS 12/24/2018 09:45 AM Culture result: NO GROWTH 5 DAYS 09/10/2 019 12:00 PM Culture result: NO GROWTH 5 DAYS 12/23/2018 11:40 AM Culture result: NO G ROWTH 4 DAYS 12/19/2018 12:30 PM Culture result: NO GROWTH 4 DAYS 12/19/2018 12:3 0 PM Culture result: NO GROWTH 1 DAY 12/12/2018 08:04 PM Culture result: NO G ROWTH 5 DAYS 12/12/2018 07:40 PM Culture result: NO GROWTH 5 DAYS 12/12/2018 07:4 0 PM Culture result: NO GROWTH 2 DAYS 11/20/2018 09:00 AM Culture result: NO G ROWTH 5 DAYS 11/07/2018 08:10 PM Culture result: NO GROWTH 5 DAYS 11/07/2018 08:0 0 PMImages:Cta Chest W Or W Wo ContResult Date: 11/08/2018Examination: CTA Chest ? PE angiography History: Hypoxia; rule out pneumoniaversus pulmonary embolism Prior s: None Technique: Low-dose, multiplanar,helical CTA chest was perfor med with bolus IV injection from lung apices tobases. 3D-reformatted images were obt ained and reviewed on a dedicated viewingworkstation and directly supervis ed. Contrast: A total of 71 mL of Isovue-370was administered intravenously for this procedure. Findings: No evidence ofpulmonary embolism is seen. There is d ecreased size of the right hemithorax fromchronic scarring and retraction with mediastinal shift left to right.Additional area of consolidation is seen in the rig ht lower lobe and suggestssuperimposed pneumonia with subsegmental atelectasis. Subsegmental atelectasisis also noted in the left lung base, with pleural parench ymal scarring. Lowlung volumes are seen. No pneumothorax seen. Aorta normal in calib er withoutaneurysm or dissection. Mediastinum no adenopathy. Mediastinal shift is see n inthe left and right as a result of chronic changes in the right hemithorax. Heart shows no chamber enlargement or pericardial effusion. No acute fractures seen in the bony thorax, sternum, manubrium and rib cage. Multiple compressiondefor mities are seen in the mid and lower thoracic spine, with superimposedspondyloarthropa thy. Cannot exclude acute fracture.Impression: No evidence of pul monary embolism Right lower lobe pneumoniasuggested. Incidental scarring and retraction in the right hemithorax fromremote/chronic inflammatory disease and/or trauma. Bibasilar subsegmentalatelectasis. Report Electron ically Signed By: Pawel Zafar M.D. -11/08/2018 12:40 AMXr Chest PortResult D ate: 11/07/2018XR CHEST PORT CLINICAL INDICATION PROVIDED:. "sob." COMPARISON: . 09/26/2015.FINDINGS:. The pericardial/cardiac silhouette is enlarg ed in the transversedimension. There is no pulmonary vascular congestion or interst itial edema.Linear density in the left lung base and faint densities in the right mi d tolower lung likely represent atelectasis. There is no lobar consolidation oreffusi on. There is no pneumothorax.IMPRESSION:. Bilateral lower lung atelectasis. No donna dence of consolidation oreffusion.Assessment/PlanActive Problem s: SOB (shortness of breath) (02/08/2019) Pressure injury of right heel, stage 2 ( HCC) (02/09/2019) Leg wound, right, initial encounter (02/09/2019) Acute resp failur e combined better. pneumonia acute copd exacerbationPLAN,Monitoring,bipap prn fo r resp distress,abx as per id.Steroid nebbipap prn and at night.NebGi /dvt pro phylaxis.D/w nursing staff.Stella Hamilton MDNov2018The billing code submi tted in association with this evaluation also includes thetime to review patient's yuan or records, communicate with the physician team,obtain corroborating data, and disc uss the risk and benefits of the proposedmanagement plan with the patient and their family >30 minutes. Name Value Range Interpretation Code Description Data Harriett rce(s) Supporting Document(s ) ID Date Data Source [id number] 02/14/2019 04:44:00 PM EDT [facility] Name Value Range Interpretation Description Data Sup porting Code Source(s) Document(s ) Glucose 110 MG/DL 65-110 [facility] - [facility] [Mass/volume] Taoist in Blood by Hospital Automated test strip ID Date Data Source [id number] 02/14/2019 04:13:19 PM EDT [facility] - [facility] Bedside and Verbal shift change report g iven to Reny Galeas RN (oncoming nurse)by Elaine Galeas RN(offgoing nurse). Report given with SBAR, Kardex, Intake/Output, MAR and RecentResults. Name Value Range Interpretation Code Description Data Harriett rce(s) Supporting Document(s ) ID Date Data Source [id number] 02/14/2019 01:19:26 PM EDT [facility] - [facility] ID Progress Note02/14/2019Subjective:Pt a waiting J- tube placement on SaturdayPatient with MR non verbal,unable to provide his tory.AfebrileWbc trending down.Objective:Vitals:Patient Vitals for the past 24 hrs: BP Temp Pulse Resp AjC89102/14/19 1203 133/90 98.6 F (37 C) 85 19 93 %02/14/19 0800 141/89 98.4 F (36.9 C) 83 18 93 %02/14/19 0756 - - - - 93 % 02/14/19 0410 134/82 99 F (37.2 C) 80 18 94 %02/14/19 0006 144/90 98.5 F (36.9 C) 84 18 95 %02/13/19 2056 - - - - 95 %02/13/19 1950 125/90 98 F (36.7 C) 72 18 94 % 1540 115/86 97.5 F (36.4 C) 90 18 94 %02/13/19 1312 106/67 96.6 F (35.9 C) 85 18 99 %Tmax: Temp (24hrs), Av.1 F (36.7 C), Min:96.6 F (35.9 C), Max:99 F(37.2 C)Physical Exam:General: Awake non verabl cooperative, no distressEyes: Co njunctivae/corneas clear. PERRLNeck: Supple, symmetrical, trachea midline, no adenopa thyLungs: Bilateral breath sounds with basal crackles..Heart: Regular rate and rhythm, S1, S2 normal, no murmurAbdomen: Soft, non-tender. Bowel sounds normal. N o masses, No organomegaly.+pegBack: No CVA tenderness.Extremities: No cyanosis,safety and skill based pay manager nicolas lymphedemaPulses: 2+ and symmetric all extremities.Skin: Skin color, texture, t urgor normal. No rashes or lesionsCurrent Facility-Administered MedicationsMedicat ion Dose Route Frequency ALPRAZolam (XANAX) tablet 0.25 mg 0.25 mg Per G Tube QID P RN methylPREDNISolone (PF) (Solu-MEDROL) injection 40 mg 40 mg IntraVENous Q12H budesonide (PULMICORT) 500 mcg/2 ml nebulizer suspension 500 mcg Nebulizati onBID RT albuterol-ipratropium (DUO- NEB) 2.5 MG-0.5 MG/3 ML 3 mL Nebulization Q6H RT acetylcysteine (MUCOMYST) 100 mg/mL (10 %) nebulizer solution 400 mg 4 mLNebulizat ion TID RT sodium chloride (NS) flush 5-10 mL 5-10 mL IntraVENous PRN cinacalcet (SENSIPAR) tablet 60 mg 60 mg Oral DAILY lamoTRIgine (LaMICtal) tablet 50 mg 50 mg Per G Tube BID multivitamin (ONE A DAY) tablet 1 Tab 1 Tab Per G Tube DAILY va lproic acid (as sodium salt) (DEPAKENE) 250 mg/5 mL (5 mL) oral solution 750mg 750 mg Oral Q12H sodium chloride (NS) flush 5-40 mL 5-40 mL IntraVENous Q8H sodium chlo ride (NS) flush 5-40 mL 5-40 mL IntraVENous PRN acetaminophen (TYLENOL) tablet 650 mg 650 mg Oral Q4H PRN heparin (porcine) injection 5,000 Units 5,000 Units SubCU TAneous Q12H 0.9% sodium chloride infusion 100 mL/hr IntraVENous CONTINUOUS pantop razole (PROTONIX) granules for oral suspension 40 mg 40 mg Per NG tubeACB ondansetron (ZOFRAN) injection 4 mg 4 mg IntraVENous Q6H PRN cefepime (MAXIPIME) 2 g in 0.9% sodium chloride (MBP/ADV) 100 mL MBP 2 gIntraVENous Q8H insulin lispro (HUMALOG) injection SubCUTAneous AC&HS dextrose 40% (GLUTOSE) oral gel 1 Tube 15 g Oral PRN glucagon (GLUCAGEN) injection 1 mg 1 mg SubCUTAneous PRN dextrose (D 50) infusion 25 g 50 mL IntraVENous PRNLabs:Recent Labs [id number] 9.6 8.4 6.9HGB 12.5* 13.2* 12.3*PLT 305 300 314BUN 15 10 13CR EA 0.27* 0.32* 0.32*Cultures:Lab ResultsComponent Value Date/Time Culture result: NO GROWTH 5 DAYS 02/08/2019 05:19 PM Culture result: NO GROWTH 5 DAYS 019 05:00 PM Culture result: NO GROWTH 5 DAYS 01/21/2019 11:30 PMRadiology:No results found.Assessment: Aspiration pneumonia Acute COPD exacerbation. Acute respirat ory failure with hypoxia. Dysphagia Atelectasis Plan:1. Continue IV cefepime 2. Follow cultures.Monica Gomez MDNovember 2, PM Name Value Range Interpretation Code Description Data Harriett rce(s) Supporting Document(s ) ID Date Data Source [id number] 02/14/2019 12:05:30 PM EDT [facility] Name Value Range Interpretation Description Data Sup porting Code Source(s) Document(s ) Glucose 103 MG/DL 65-110 [facility] [Mass/volume] Taoist in Blood by Hospital Automated test strip ID Date Data Source [id number] 02/14/2019 09:58:45 AM EDT [facility] Patient non-verbal.Visit VitalsBP 141/89 (BP 1 Location: Left arm)Pulse 83Temp 98.4 F (36.9 C)Resp 18Ht 5' 2" (1.575 m)Wt 6 1.2 kg (135 lb)SpO2 93%BMI 24.69 kg/m Gen appears comfortableAbd soft, NT, feeding tube in placeLabs reviewed.Imp/plan: recurrent aspiration, plan for G to J tu be conversion on Saturday tominimize risk of aspiration. Continue feeds for now, hold starting tomorrownight at midnight. Name Value Range Interpretation Code Description Data Harriett rce(s) Supporting Document(s ) ID Date Data Source [id number] 02/14/2019 09:22:07 AM EDT [facility] Progress NotePatient: Evelio Carlin Sex: male DOA: 02/08/2019Date of : 1950 Age: 68 y.o. LOS: 6 daysThis is medicine coverage for dr Baum bjective:Patient was seen earlier today. Pt is awake/ non verbal/ hemodynamically st able.Pt 's J- tube placement was rescheduled for Saturday. No fever/ chills/ sob/ cp/n/ v/ d.No events overnight.ROS---- unable to obtain, pt is non verbalPt is seen forPn eumonia right baseAtelectasis LLLCopdgerdPulmonary embolismMental concetta rdationObjective:Visit VitalsBP 141/89 (BP 1 Location: Left arm)Pulse 83Temp 98.4 F (36.9 C)Resp 18Ht 5' 2" (1.575 m)Wt 61.2 kg (135 lb)SpO2 93%BMI 24.69 kg/m Physical Exam: General: WD, thin. awake, cooperative, no acute distress. HEENT: NC, Atraumatic. PERRLA, anicteric sclerae.pink conjunctiva Elham ngs: B/l ae. No Wheezing/Rhonchi/Rales. Heart: Regular rhythm, No murm ur, No Rubs, No Gallops.s1,s2 Abdomen: Soft, Non distended, Non tender. +Bowel sounds.pos peg Extremities: No c/c/e. Psych: Not anxious or agitated. Neurologic: No acute neurological deficit. Skin : No rash Neck : Supple, no jvd/ bruitIntake and Output:I ntake/Output Summary (Last 24 hours) at 02/14/2019 0905Last data filed at 02/14/20 19 1833Gross per 24 hourIntake 700 mlOutput -Net 700 mlLab/Data Reviewed:Recent Labs 02/13/1902WBC 9.6 8.4 -- 6.9HGB 12.5 * 13.2* -- 12.3*PLT 305 300 -- 314BUN 15 10 -- 13CREA 0.27* 0.32* -- 0.32*NA 136 136 -- 137CL 98 98 -- 99K 4.5 4.4 -- 4.0MG 1.8 2.0 -- 2.0PH -- -- 7.47 * --CA 9.4 9.3 -- 9.0Special Requests:Date Value Ref Range [id number]/08/2019 NO SPEC IAL REQUESTS FinalCulture result:Date Value Ref Range Snzmue3002/08/2019 NO GROWTH 5 D AYS FinalXR Results (most recent):Results from Hospital Encounter encounter on XR CHEST SNGL V Narrative CHEST one viewHISTORY: Followup lung pathology.Com parison is made to previous studies.Accounting for differences in te [place] there has been no significant change ofright basal infiltrate/effusion. There is a poor inspiratory effort and patientrotation towards the right.No oth er interval change is noted. Impression IMPRESSION: No significant change. CXRMedications Reviewed:Current Facility-Administered MedicationsMedicat ion Dose Route Frequency methylPREDNISolone (PF) (Solu-MEDROL) injection 40 mg 40 m g IntraVENous Q12H budesonide (PULMICORT) 500 mcg/2 ml nebulizer suspension 500 m cg NebulizationBID RT albuterol-ipratropium (DUO-NEB) 2.5 MG-0.5 MG/3 ML 3 mL Nebul ization Q6H RT acetylcysteine (MUCOMYST) 100 mg/mL (10 %) nebulizer solution 400 mg 4 mLNebulization TID RT sodium chloride (NS) flush 5-10 mL 5-10 mL IntraVENous PRN cinacalcet (SENSIPAR) tablet 60 mg 60 mg Oral DAILY lamoTRIgine (LaMICtal) table t 50 mg 50 mg Per G Tube BID multivitamin (ONE A DAY) tablet 1 Tab 1 Tab Per G Tu be DAILY valproic acid (as sodium salt) (DEPAKENE) 250 mg/5 mL (5 mL) oral solut ion 750mg 750 mg Oral Q12H sodium chloride (NS) flush 5-40 mL 5-40 mL IntraVENous Q8H sodium chloride (NS) flush 5-40 mL 5-40 mL IntraVENous PRN acetaminophen (TYLEN OL) tablet 650 mg 650 mg Oral Q4H PRN heparin (porcine) injection 5,000 Units 5,000 Units SubCUTAneous Q12H 0.9% sodium chloride infusion 100 mL/hr IntraVENous CONTINUOUS pantoprazole (PROTONIX) granules for oral suspension 40 mg 40 mg Per NG tubeACB ondansetron (ZOFRAN) injection 4 mg 4 mg IntraVENous Q6H PRN cefepime (MAXI PIME) 2 g in 0.9% sodium chloride (MBP/ADV) 100 mL MBP 2 gIntraVENous Q8H insulin lispro (HUMALOG) injection SubCUTAneous AC&HS dextrose 40% (GLUTOSE) oral gel 1 Tube 15 g Oral PRN glucagon (GLUCAGEN) injection 1 mg 1 mg SubCUTAneous PRN d extrose (D50) infusion 25 g 50 mL IntraVENous PRNAssessmentActive Problems : SOB (shortness of breath) (02/08/2019) Pressure injury of right heel, stage 2 ( HCC) (02/09/2019) Leg wound, right, initial encounter (02/09/2019)pneumonia right ba seAtelectasis LLLCopdgerdPulmonary embolismMental retardationDysphagia/ peg parkinson'sPlan1. Continue o22. Bd3. abx4. Hydration5. Gi f/u6. labsContinue curren t treatment.My assessment, plan of care, findings, medications, side effects etc werediscussed with:[X]nursing [ ]PT/OT[ ]respiratory therapy [ ][ ]family [ ]PatientChristos Lopez MDNovember 20189:05 AM Name Value Range Interpretation Code Description Data [facility] Supporting Document(s ) ID Date Data Source [id number] 02/14/2019 08:22:55 AM EDT [facility] Name Value Range Interpretation Description Data Sup porting Code Source(s) Document(s ) Glucose 86 MG/DL 65-110 [facility] [Mass/volume] Taoist in Blood by [facility] Automated test strip ID Date Data Source [id number] 02/14/2019 07:42:53 AM EDT [facility] Bedside and Verbal shift change report carol pham to Elaine Galeas RN (oncoming nurse)by Alfred Benson RN(offgoing nurse). Report given with SBAR, Kardex, Intake/Output, MAR and RecentResults. Name Value Range Interpretation Code Description Data [facility] Supporting Document(s ) ID Date Data Source [id number] 02/14/2019 07:02:32 AM EDT [facility] - [facility] Name Value Range Interpretation Description Data Sup porting Code Source(s) Document(s ) Leukocytes 9.6 K/uL 4.8-10.6 [facility] - [#/volume] in Good Blood by Taoist Automated count Hospital Erythrocytes 3.90 4.70-6.0 Below low normal [facility] - [#/volume] in M/uL 0 Good Blood by [facility] count [facility] Hemoglobin 12.5 14.0-18. Below low normal [facility] - [Mass/volume] in g/dL 0 Good Blood [facility] Hematocrit 38.6 % 42.0-52. Below low normal [facility] - [Volume 0 Good Fraction] of Taoist Blood by Hospital Automated count Erythrocyte mean 99.0 FL 81.0-94. Above high normal [facility] - corpuscular 0 Good volume [Entitic Taoist volume] by Hospital Automated count Erythrocyte mean 32.1 PG 27.0-35. [facility] - corpuscular 0 Good hemoglobin Taoist [Entitic mass] Hospital by Automated count Erythrocyte mean 32.4 30.7-37. [facility] - corpuscular g/dL 3 Good hemoglobin Taoist concentration [facility] [Mass/volume] by Automated count Erythrocyte 15.9 % 11.5-14. Above high normal [facility] - distribution 0 Good width [Ratio] by Taoist Automated count [facility] Platelets 305 K/uL 130-400 [facility] - [#/volume] in Good Blood by Taoist Automated [facility] Platelet mean 9.4 FL 9.2-11.8 [facility] - volume [Entitic Good volume] in Blood Taoist by Automated Hospital count ID Date Data Source [id number] 02/14/2019 06:37:42 AM EDT [facility] - [facility] Name Value Range Interpretation Description Data Sup porting Code Source(s) Document(s ) Sodium 136 136-145 [facility] - Good [Moles/volume] mmol/L Taoist in Serum or Hospital Plasma Potassium 4.5 3.5-5.1 [facility] - Good [Moles/volume] mmol/L Taoist in Serum or Hospital Plasma Chloride 98 98-107 [facility] - Good [Moles/volume] mmol/L Taoist in Serum or Hospital Plasma Carbon 33 21-32 Above high normal [facility] - Good dioxide, total mmol/L Taoist [Moles/volume] Hospital in Serum or Plasma Anion gap in 9 mmol/L 10-20 Below low normal [facility] - Go od Serum or Taoist Plasma Hospital Glucose 119 74-106 Above high normal [facility] - Good [Mass/volume] mg/dL Taoist in Serum or Hospital Plasma Urea nitrogen 15 mg/dL 7-18 [facility] - Good [Mass/volume] Taoist in Serum or Hospital Plasma Creatinine 0.27 0.70-1.3 Below low normal [facility] - Good [Mass/volume] mg/dL 0 Taoist in Serum or Hospital Plasma Glomerular >60 [facility] - Good filtration Taoist rate/1.73 sq M Hospital predicted among blacks [Volume Rate/Area] in Serum or Plasma by Creatinine-bas ed formula (MDRD) Glomerular >60 [facility] - Good filtration Taoist rate/1.73 sq M Hospital predicted among non-blacks [Volume Rate/Area] in Serum or Plasma by Creatinine-bas ed formula (MDRD) Calcium 9.4 8.5-10.1 [facility] - Good [Mass/volume] mg/dL Taoist in Serum or Hospital Plasma ID Date Data Source [id number] 02/14/2019 06:37:42 AM EDT [facility] Name Value Range Interpretation Description Data Sup porting Code Source(s) Document(s ) Magnesium 1.8 mg/dL 1.6-2.6 [facility] - [facility] [Mass/volume] Taoist in Serum or Hospital Plasma ID Date Data Source [id number] 02/13/2019 09:07:00 PM EDT [facility] Name Value Range Interpretation Description Data Sup porting Code Source(s) Document(s ) Glucose 106 MG/DL 65-110 [facility] - [facility] [Mass/volume] Taoist in Blood by [facility] Automated test strip ID Date Data Source [id number] 02/13/2019 07:29:46 PM EDT [facility] Bedside and Verbal shift change report carol pham to Angel Mustachio,RN (oncomingnurse) by Rama Jaimes RN(offgoing nurse). Rep ort given with SBAR, Kardex, Intake/Output, MAR and RecentResults. Name Value Range Interpretation Code Description Data Harriett rce(s) Supporting Document(s ) ID Date Data Source [id number] 02/13/2019 04:47:31 PM EDT [facility] Name Value Range Interpretation Description Data Sup porting Code Source(s) Document(s ) Glucose 120 MG/DL 65-110 Above high normal [facility] [Mass/volume] Taoist in Blood by [facility] Automated test strip ID Date Data Source [id number] 02/13/2019 03:25:56 PM EDT [facility] ID Progress Note02/13/2019Subjective:Siri ent with MR non verbal,unable to provide history.AfebrileWbc trending down.Object britni:Vitals:Patient Vitals for the past 24 hrs: BP Temp Pulse Resp DyK81002/13/19 131 2 106/67 96.6 F (35.9 C) 85 18 99 %02/13/19 1141 (!) 155/101 98.3 F (36.8 C) 85 18 98 %02/13/19 0744 148/82 97.3 F (36.3 C) 70 18 98 %02/13/19 0419 134/84 98.1 F ( 36.7 C) 82 16 93 %02/13/19 0127 137/89 - - - -02/13/19 0010 (!) 125/94 98.3 F (36.8 C) 83 16 93 %02/12/19 1959 132/90 98.1 F (36.7 C) 92 18 93 %Tmax: Temp (24hrs), Av.8 F (36.6 C), Min:96.6 F (35.9 C), Max:98.3 F(36.8 C)Physical Exam:Ge neral: Awake non verabl cooperative, no distressEyes: Conjunctivae/corneas sudhakar r. PERRLNeck: Supple, symmetrical, trachea midline, no adenopathyLungs: Bilateral breath sounds with basal crackles..Heart: Regular rate and rhythm, S1, S2 normal, no murmurAbdomen: Soft, non-tender. Bowel sounds normal. No masses, No organomega ly.+pegBack: No CVA tenderness.Extremities: No cyanosis,chronic lymphedemaPulses: 2+ and symmetric all extremities.Skin: Skin color, texture, turgor normal. No rashes or lesionsCurrent Facility-Administered MedicationsMedication Dose Route Frequen cy methylPREDNISolone (PF) (Solu-MEDROL) injection 40 mg 40 mg IntraVENous Q12H budesonide (PULMICORT) 500 mcg/2 ml nebulizer suspension 500 mcg Nebulizati onBID RT albuterol-ipratropium (DUO- NEB) 2.5 MG-0.5 MG/3 ML 3 mL Nebulization Q6H RT acetylcysteine (MUCOMYST) 100 mg/mL (10 %) nebulizer solution 400 mg 4 mLNebulizat ion TID RT sodium chloride (NS) flush 5-10 mL 5-10 mL IntraVENous PRN cinacalcet (SENSIPAR) tablet 60 mg 60 mg Oral DAILY ALPRAZolam (XANAX) tablet 0.25 mg 0.25 mg Per G Tube QID PRN lamoTRIgine (LaMICtal) tablet 50 mg 50 mg Per G Tube BID mult ivitamin (ONE A DAY) tablet 1 Tab 1 Tab Per G Tube DAILY valproic acid (as sodium s alt) (DEPAKENE) 250 mg/5 mL (5 mL) oral solution 750mg 750 mg Oral Q12H sodium chloride (NS) flush 5-40 mL 5-40 mL IntraVENous Q8H sodium chloride (NS) fl ush 5-40 mL 5-40 mL IntraVENous PRN acetaminophen (TYLENOL) tablet 650 mg 6 50 mg Oral Q4H PRN heparin (porcine) injection 5,000 Units 5,000 Units SubCU TAneous Q12H 0.9% sodium chloride infusion 100 mL/hr IntraVENous CONTINUOUS pantop razole (PROTONIX) granules for oral suspension 40 mg 40 mg Per NG tubeACB ondansetron (ZOFRAN) injection 4 mg 4 mg IntraVENous Q6H PRN cefepime (MAXIPIME) 2 g in 0.9% sodium chloride (MBP/ADV) 100 mL MBP 2 gIntraVENous Q8H insulin lispro (HUMALOG) injection SubCUTAneous AC&HS dextrose 40% (GLUTOSE) oral gel 1 Tube 15 g Oral PRN glucagon (GLUCAGEN) injection 1 mg 1 mg SubCUTAneous PRN dextrose (D 50) infusion 25 g 50 mL IntraVENous PRNLabs:Recent Labs 02/12/1904WBC 8.4 6.9 10.9*HGB 13.2* 12.3* 11.5*PLT 300 314 330BUN 10 13 16CR EA 0.32* 0.32* 0.33*Cultures:Lab ResultsComponent Value Date/Time Culture result: NO GROWTH 5 DAYS 02/08/2019 05:19 PM Culture result: NO GROWTH 5 DAYS 019 05:00 PM Culture result: NO GROWTH 5 DAYS 01/21/2019 11:30 PMRadiology:No results found.Assessment: Aspiration pneumonia Acute COPD exacerbation. Acute respirat ory failure with hypoxia. Dysphagia Atelectasis Plan:1. Continue IV cefepime 2. Follow cultures.José Luis Beauchamp 20183:23 PM Name Value Range Interpretation Code Description Data Harriett rce(s) Supporting Document(s ) ID Date Data Source [id number] 02/13/2019 01:06:04 PM EDT [facility] Name Value Range Interpretation Description Data Sup porting Code Source(s) Document(s ) Glucose 105 MG/DL 65-110 [facility] [Mass/volume] Taoist in Blood by Hospital Automated test strip ID Date Data Source [id number] 02/13/2019 12:39:46 PM EDT [facility] NUTRITIONFollow Up NoteSubjective:Pt kristofer eduled to have j-tube placement today, however unable to be completed.Reschedul ed for Saturday.Nutrition rx: Pulmocare @ 55 ml/hr, 100 ml flush q 3 hrLabs and medic ations reviewed. POC 99, 93. Receiving NS @ 100 ml/hr, Humalog(held), Solu-medrolWei ght: 61.2 kg, up ~2 kg since initial assessment, net (+) I/OsSkin integrity r eviewed, no changes noted. Trace LUE, 1+ BLE edema notedNutrition Diagnosis remains t he same (increased protein and energy needs)Recommend continue current EN rxGo als remains the sameMonitoring and Evaluation:Adjust EN as feasibleDischarg e Planning:Pending clinical courseLisa Baig RD Name Value Range Interpretation Code Description Data Harriett rce(s) Supporting Document(s ) ID Date Data Source [id number] 02/13/2019 12:38:58 PM EDT [facility] Problem: Nutrition DeficitGoal: *Optimiz e nutritional statusDescriptionPt to progress towards meeting >80% estimated needs wit hin 3-7 daysOutcome: Progressing Towards Goal Recommend continue current EN rx Name Value Range Interpretation Code Description Data Harriett rce(s) Supporting Document(s ) ID Date Data Source [id number] 02/13/2019 12:30:19 PM EDT [facility] Progress NotePatient: Evelio Carlin Sex: male DOA: 02/08/2019Date of : 1950 Age: 68 y.o. LOS: 5 daysThis is medicine coverage for dr palma.Eloisa ubjective:Patient was seen earlier today. Pt is unresponsive to verbal command.No fev er/ chills/ sob/ cp/ n/ v/ d. Pt is scheduled for J-tube placement.ROS----unable to ob tain.Pt is seen forPneumonia right baseAtelectasis LLLCopdgerdPulmonary emb olismMental retardationObjective:Visit VitalsBP (!) 155/101 (BP 1 Location: [facility] ht arm, BP Patient Position: At rest;Supine)Pulse 85Temp 98.3 F (36.8 C)Resp 18Ht 5' 2" (1.575 m)Wt 61.2 kg (135 lb)SpO2 98%BMI 24.69 kg/m Physical Exam: General: WD, thin. Unresponsive to verbal command, cooperative, noacute dis tress. HEENT: NC, Atraumatic. PERRLA, anicteric sclerae.pink conjuncti va Lungs: B/l ae. No Wheezing/Rhonchi/Rales. He art: Regular rhythm, No murmur, No Rubs, No Gallops.s1,s2 Abdomen: Soft, Non distended, Non tender. +Bowel sounds.pos peg Extremities: No c/c/e. P sych: Not anxious or agitated. Neurologic: No acute neurological defici t. Skin : No rash Neck : Supple, no j vd/ bruitIntake and Output:Intake/Output Summary (Last 24 hours) at 02/13/2019 122 0Last data filed at 02/12/2019 2000Gross per 24 hourIntake 160 mlOutput -Net 160 mlLa b/Data Reviewed:Recent Labs 02/12/1909WB C 8.4 -- 6.9 10.9*HGB 13.2* -- 12.3* 11.5*PLT 300 -- 314 330BUN 10 -- 13 16CREA 0.32* -- 0.32* 0.33*NA 136 -- 137 135*CL 98 -- 99 97*K 4.4 -- 4.0 4.1M G 2.0 -- 2.0 1.7PH -- 7.47* -- --CA 9.3 -- 9.0 8.8Special Requests:Date Va lue Ref Range [id number]/08/2019 NO SPECIAL REQUESTS FinalCulture result:Date Valu e Ref Range [id number]/08/2019 NO GROWTH 5 DAYS FinalXR Results (most recent):Results from Hospital Encounter encounter on 02/08/19XR CHEST SNGL V Narrative CHEST one viewHISTORY: Followup lung pathology.Comparison is made to previous studies.Accounting for differences in technique there has been no significant change ofright basal infiltrate/effusion. There is a poor inspiratory effort and p atientrotation towards the right.No other interval change is noted. Impression IMP RESSION: No significant change. CXRMedications Reviewed:Current Facility -Administered MedicationsMedication Dose Route Frequency methylPREDNISolone (PF) (Solu-MEDROL) injection 40 mg 40 mg IntraVENous Q12H budesonide (PULMICORT) 500 mcg/2 ml nebulizer suspension 500 mcg NebulizationBID RT albuterol-ipratropiu m (DUO-NEB) 2.5 MG-0.5 MG/3 ML 3 mL Nebulization Q6H RT acetylcysteine (MUC OMYST) 100 mg/mL (10 %) nebulizer solution 400 mg 4 mLNebulization TID RT sodium chloride (NS) flush 5-10 mL 5-10 mL IntraVENous PRN cinacalcet (SENSIPAR) t ablet 60 mg 60 mg Oral DAILY ALPRAZolam (XANAX) tablet 0.25 mg 0.25 mg Per G Tu be QID PRN lamoTRIgine (LaMICtal) tablet 50 mg 50 mg Per G Tube BID multivitamin ( ONE A DAY) tablet 1 Tab 1 Tab Per G Tube DAILY valproic acid (as sodium salt) (D EPAKENE) 250 mg/5 mL (5 mL) oral solution 750mg 750 mg Oral Q12H sodium chloride (NS) flush 5-40 mL 5-40 mL IntraVENous Q8H sodium chloride (NS) flush 5-40 mL 5-40 mL IntraVENous PRN acetaminophen (TYLENOL) tablet 650 mg 650 mg Oral Q4H PRN hepa rin (porcine) injection 5,000 Units 5,000 Units SubCUTAneous Q12H 0.9% sodium chl oride infusion 100 mL/hr IntraVENous CONTINUOUS pantoprazole (PROTONIX) gran ules for oral suspension 40 mg 40 mg Per NG tubeACB ondansetron (ZOFRAN) injection 4 mg 4 mg IntraVENous Q6H PRN cefepime (MAXIPIME) 2 g in 0.9% sodium chloride ( MBP/ADV) 100 mL MBP 2 gIntraVENous Q8H insulin lispro (HUMALOG) injection Sub CUTAneous AC&HS dextrose 40% (GLUTOSE) oral gel 1 Tube 15 g Oral PRN glucagon (GLU CAGEN) injection 1 mg 1 mg SubCUTAneous PRN dextrose (D50) infusion 25 g 50 mL Intr aVENous PRNAssessmentActive Problems: SOB (shortness of breath) (02/08/2019) Pres sure injury of right heel, stage 2 (HCC) (02/09/2019) Leg wound, right, initial encounter (02/09/2019)pneumonia RLLAtelectasis LLLCopdgerdMental retarda tionH/o PEparkinson'sPlan1. Continue o22. Bd3. abx4. Hydration5. J-tube placement6 . labsContinue current treatment.My assessment, plan of care, findings, medi cations, side effects etc werediscussed with:[X]nursing [ ]PT/OT[ ]respiratory therapy [ ][ ]family [ ]Isa Lopez MDNovember 201812:20 PM Name Value Range Interpretation Code Description Data Harriett rce(s) Supporting Document(s ) ID Date Data Source [id number] 02/13/2019 11:23:04 AM EDT [facility] Pt scheduled for placement of j tube thr ough g tube today however procedure willneed to be postponed until additional equipme nt is available on Saturday.The j tube insert can only be placed through an original 2 4fr PEG tube. Thepatient has a 24fr lozano through his gastrocutaneous fistula trac t and thehospital does not carry a 24fr primary PEG. Confirmed with [employer] nt[employer] rep that the j tube insert can not be placed through a replacement gtub e. Thus hospital will order 24fr PEG which will need to be placed throughthe existi ng tract and through which the j-tube can be inserted. Plan forMonday, can resume . Name Value Range Interpretation Code Description Data [facility] rce(s) Supporting Document(s ) ID Date Data Source [id number] 02/13/2019 10:34:12 AM EDT [facility] PULMONARY/ CCM- Consult NotePatient: Ivelisse Carlin Sex: male DOA: 02/08/2019Date of : [birth year] Age: 68 y.o. LOS: LOS: 5 daysHPI: step down.Evelio Carlin is a 68 y.o. 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 Authoriz ing Providercefepime 2 gram 2 g IVPB 2 g by IntraVENous route every eight (8) hours. 02/12/19 Yes Christos Lopez, MDheparin sodium,porcine (HEPARIN, PORCINE,) 5,000 unit/mL injection 1 mL bySubCUTAneous route every twelve (12) hours every twelve (12 ) hours. 02/12/19Yes Christos Lopez, MDpantoprazole (PROTONIX) 40 mg granules for oral suspension 40 mg by Per NG tuberoute Daily (before breakfast). 02/13 Yes Leisa Lopezr, MDpredniSONE (DELTASONE) 10 mg tablet Take 20 mg by m outh daily. 02/12/19 YesPaulmazajessica, Christos, MDpredniSONE (DELTASONE) 10 mg tablet Ta ke 10 mg by mouth daily (with breakfast).02/12/19 Yes Christos Lopez , MDmultivitamin (MULTI-DELYN, WELLESSE) liqd 5 mL by Per G Tube route daily. YesPro vider, Historicalvalproic acid, as sodium salt, (DEPAKENE) 250 mg/5 mL (5 mL) soln oral hwcropmc034 mg by Per G Tube route every twelve (12) hours. Yes Provider, Historicalacetylcysteine (MUCOMYST) 100 mg/mL (10 %) nebulizer solution Take 4 m L byinhalation two (2) times a day. Yes Provider, Historicalzinc oxide 10 % topi inez cream Apply to affected area daily. Ribbon around GTsite Yes Provider, His toricalomeprazole (PRILOSEC) 2 mg/mL susp 2 mg/mL oral suspension (compounded) 40 mg byPer G Tube route daily. Yes Provider, Historicalsilver sulfADIAZINE (SILVADENE ) 1 % topical cream Apply to affected area two(2) times a day. 1 inch ribbon- right edge Yes Provider, Historicalcholestyramine-aspartame (QUES [place] LIGHT) 4 gram packet Take 1 Packet by mouthtwo (2) times a day.Patient taking differently: 4 g two (2) times a day. Via G tube. 01/24/19 YesMili Hills DOcl orazepate (TRANXENE) 3.75 mg tablet 1 Tab by Per G Tube route nightly. MaxDaily Amoun t: 3.75 mg. 12/30/18 Yes Mili Hills DOcinacalcet (SENSIPAR) 30 mg tablet Cecilio e 2 Tabs by mouth daily.Patient taking differently: 60 mg daily. Via G tube 12/14 10/31 Yes Mili Hills DOlamoTRIgine (LAMICTAL) 25 mg tablet 2 Tabs by Per G Tube route two (2) times aday. 12/30/18 Yes Mili Hills DOalbuterol-ipratropium (DUO-NEB) 2.5 mg-0.5 mg/3 ml nebu 3 mL by Nebulizationroute every six (6) hours. E very 6 hours while awake 12/30/18 Yes Mili Hills DObudesonide (PULMICORT) 0.5 mg/2 mL nbsp 2 mL by Nebulization route two (2) timesa day. 12/30/18 Yes Mili Hills DOacetaminophen (TYLENOL) 32MG/ML soln solution Take 20.3 mL by mouth ever y four(4) hours as needed for Pain or Fever. 01/24/19 Mili Hills DOinfluenzdevang vaccine 2019-20, 65 yrs+,,PF, (FLUZONE HIGH-DOSE) syrg injection 0.5mL by Intra MUSCular route PRIOR TO DISCHARGE. 01/24/19 Mili Hills DObacitracin 500 unit/g escobar ointment Apply 1 Packet to affected area two (2) timesa day. Indications: minor s kin infection due to bacteria, facial scabs 12/30/18Mili Hills DONo Known Aller giesPast Surgical History:Procedure Laterality Date HX GASTROSTOMY PEG- rep laced 11/2018History reviewed. 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 Use Smoking status: Never Smoker Smokeless tobacco: Never UsedSubstance a nd Sexual Activity Alcohol use: No Drug use: NoReview of SystemsPertinent items are noted in the History of Present Illness.Physical Exam:Current medication s:Current Facility-Administered Medications: methylPREDNISolone (PF) (Solu-MEDROL) i njection 40 mg, 40 mg, IntraVENous,Q12H, Chay Palma MD, 40 mg at 1008 budesonide (PULMICORT) 500 mcg/2 ml nebulizer suspension, 500 mcg,N ebulization, BID RT, Christos Lopez MD, 500 mcg at 02/13/19 0834 albuterol-ipratro pium (DUO-NEB) 2.5 MG-0.5 MG/3 ML, 3 mL, Nebulization, Q6HRT, Stella Hamilton MD, 3 mL at 02/13/19 0816 acetylcysteine (MUCOMYST) 100 mg/mL (10 %) nebulizer so lution 400 mg, 4 mL,Nebulization, TID RT, Krystian Monae MD, 400 mg at 02/13/19 08 16 sodium chloride (NS) flush 5-10 mL, 5-10 mL, IntraVENous, PRN, Hillary Palma MD cinacalcet (SENSIPAR) tablet 60 mg, 60 mg, Oral, DAILY, Justin Palma MD, 60 mg at 02/13/19 0958 ALPRAZolam (XANAX) tablet 0.25 mg, 0.25 mg, Per G Tube, QID PRN,Chay Palma MD, 0.25 mg at 02/10/19 211 lamoTR Igine (LaMICtal) tablet 50 mg, 50 mg, Per G Tube, BID, Chay Palma MD, 5 0 mg at 02/13/19 0958 multivitamin (ONE A DAY) tablet 1 Tab, 1 Tab, Per G Tube, DA PIERRE,Chay Palma MD, 1 Tab at 02/12/19 0912 valproic acid (as sodium salt) (DEPAKENE) 250 mg/5 mL (5 mL) oral bbxizhak490 mg, 750 mg, Oral, Q12H, Chay Oswald MD, 750 mg at 02/13/19 0908 sodium chloride (NS) flush 5-40 m L, 5-40 mL, IntraVENous, Q8H, Chay Palma MD, Stopped at 1 04/15/18 0600 sodium chloride (NS) flush 5-40 mL, 5-40 mL, IntraVENous, PRN, Chay Oswald MD, 10 mL at 02/11/19 1400 acetaminophen (TYLENOL) tablet 65 0 mg, 650 mg, Oral, Q4H PRN, Chay Palma MD, 650 mg at 2239 heparin (porcine) injection 5,000 Units, 5,000 Units, SubCUTAneous, Q12H,Chay Palma MD, 5,000 Units at 02/12/19 2336 0.9% sodium chloride infusion, 100 mL/hr, IntraVENous, CONTINUOUS,Chay Palma MD, Last Rate: 100 mL/hr at 02/13/19 1008, 100 mL/hr at104/15/18 1008 pantoprazole (TN OTONIX) granules for oral suspension 40 mg, 40 mg, Per NGtube, ACB, Justin Palma MD, 40 mg at 02/13/19 0958 ondansetron (ZOFRAN) injection 4 mg, 4 m g, IntraVENous, Q6H PRN,Chay Palma MD cefepime (MAXIPIME) 2 g in 0.9% sodium chloride (MBP/ADV) 100 mL MBP, 2 g,IntraVENous, Q8H, Rey Palma MD, Last Rate: 200 mL/hr at 349, 2 g at 02/13/19 0349 ins ulin lispro (HUMALOG) injection, , SubCUTAneous, AC&HS, Rey Palma MD, Stopped at 02/08/19 2200 dextrose 40% (GLUTOSE) oral gel 1 Tube, 15 g, Ora l, PRN, Chay Palma MD glucagon (GLUCAGEN) injection 1 mg, 1 mg, SubCUTA neous, PRN, Chay Palma MD dextrose (D50) infusion 25 g, 50 mL, Int raVENous, PRN, Latrell Palma, MDDataVisit VitalsBP 148/82 (BP 1 Locati on: Right arm, BP Patient Position: At rest)Pulse 70Temp 97.3 F (36.3 C)Resp 18Ht 5' 2" (1.575 m)Wt 61.2 kg (135 lb)SpO2 98%BMI 24.69 kg/m Intake and Output:Date 02/12/19699 - 02/13/1965802/13/19699 - 02/14/19 0659Shift 7164-0329 7084-5060 24 Hour Total 9534-6209 2261-4739 24 Hour TotalINTAKENG/GT 160 160 Water Flush V olume (mL) (Feeding Tube ) 100 100 Medication Volume (Feeding Tube ) 60 60 Shift Total(mL/kg) 160(2.6) 160(2.6)OUTPUTUrine(mL/kg/hr) Urine Occ urrence(s) 3 x 3 xShift Total(mL/kg)NET 160 160Weight (kg) 61.2 61.2 61.2 61.2 61.2 61.2Pulse OX:SpO2 Readings from Last 6 Encounters:02/13/19 98%01/24/19 93%12/30 96%11/27/18 91%09/26/15 96%@LASTSAO2(6)@PHYSICAL EXAM:General: Lethargic,responding.Head: Normocephalic, without obvious abnormality, atraumatic. Eyes: Conjunctivae clear, anicteric sclerae. Pupils are equalNose: Nares n ormal. No drainage or sinus tenderness.Throat: Lips, mucosa, and tongue normal. No ThrushNeck: Supple, symmetrical, no adenopathy, thyroid: no n tender no carotid bruit and no JVD.Back: Symmetric, No CVA tenderness.Lungs: Scattered rhonchi,Chest wall: No tenderness or deformity. No Accessory muscle use.He art: Regular rate and rhythm, no murmur, rub or gallop.Abdomen: Soft, non-tende r. Not distended. Bowel sounds normal. No massesExtremities: Extremities normal, a traumatic, No cyanosis. No edema. No clubbingSkin: Texture, turgor normal . No rashes or lesions. Not JaundicedLymph nodes: Cervical, supraclavicular normal. Psych: Good insight. Not depressed. Not anxious or agitated.Neurologic: EOMs int act. No facial asymmetry. No aphasia or slurred speech.Most recent labs:Recent L abs 02/13/1904WBC 8.4 6.9 10.9*HGB 13.2* 1 2.3* 11.5*HCT 41.6* 37.4* 35.8*PLT 300 314 330Recent Labs 02/12/1909 9 02/12/1904NA 136 -- 137 135*K 4.4 -- 4.0 4.1CL 98 -- 99 97*C O2 36* 37* 35* 36*GLU 114* -- 114* 96BUN 10 -- 13 16CREA 0.32* -- 0.32* 0.33*CA 9.3 -- 9.0 8.8MG 2.0 -- 2.0 1.7Recent Labs PH 7.47*PCO2 49*PO2 64 *HCO3 36*FIO2 21.0ABG:Recent Labs PH 7.47*PCO2 49*PO2 64*HCO3 36*FIO2 21.0Cultures:No results found for: SDESLab ResultsComponent Value Date/Time Culture result: NO GROWTH 5 DAYS 02/08/2019 05:19 PM Culture result: NO GROWTH 5 DAY S 02/08/2019 05:00 PM Culture result: NO GROWTH 5 DAYS 01/21/2019 11:30 PM Cultur e result: NO GROWTH 2 DAYS 01/21/2019 11:15 PM Culture result: NO GROWTH 5 DAYS 12/2018 11:00 PM Culture result: NO GROWTH 1 DAY 01/10/2019 08:58 AM Culture result: NO GROWTH 5 DAYS 01/10/2019 07:55 AM Culture result: NO GROWTH 5 DAYS 01/10/2019 07:4 0 AM Culture result: NO GROWTH 5 DAYS 12/29/2018 11:23 AM Culture result: NO G ROWTH 5 DAYS 12/29/2018 11:00 AM Culture result: 10,000 to 50,000 COLONIES/mL KLE BSIELLA PNEUMONIAE (A)12/29/2018 11:00 AM Culture result: 50,000-100,000 COLONIES/ mL PSEUDOMONAS AERUGINOSA (A)12/29/2018 11:00 AM Culture result: (A) 12/29/2018 11:00 AM 10,000 to 50,000 COLONIES/mL STAPHYLOCOCCUS EPIDERMIDIS Culture resul t: NO GROWTH 2 DAYS 12/24/2018 09:45 AM Culture result: NO GROWTH 5 DAYS 019 12:00 PM Culture result: NO GROWTH 5 DAYS 12/23/2018 11:40 AM Culture result: NO G ROWTH 4 DAYS 12/19/2018 12:30 PM Culture result: NO GROWTH 4 DAYS 12/19/2018 12:3 0 PM Culture result: NO GROWTH 1 DAY 12/12/2018 08:04 PM Culture result: NO G ROWTH 5 DAYS 12/12/2018 07:40 PM Culture result: NO GROWTH 5 DAYS 12/12/2018 07:4 0 PM Culture result: NO GROWTH 2 DAYS 11/20/2018 09:00 AM Culture result: NO G ROWTH 5 DAYS 11/07/2018 08:10 PM Culture result: NO GROWTH 5 DAYS 11/07/2018 08:0 0 PMImages:Cta Chest W Or W Wo ContResult Date: 11/08/2018Examination: CTA Chest ? PE angiography History: Hypoxia; rule out pneumoniaversus pulmonary embolism Prior s: None Technique: Low-dose, multiplanar,helical CTA chest was perfor med with bolus IV injection from lung apices tobases. 3D-reformatted images were obt ained and reviewed on a dedicated viewingworkstation and directly supervis ed. Contrast: A total of 71 mL of Isovue-370was administered intravenously for this procedure. Findings: No evidence ofpulmonary embolism is seen. There is d ecreased size of the right hemithorax fromchronic scarring and retraction with mediastinal shift left to right.Additional area of consolidation is seen in the rig ht lower lobe and suggestssuperimposed pneumonia with subsegmental atelectasis. Subsegmental atelectasisis also noted in the left lung base, with pleural parench ymal scarring. Lowlung volumes are seen. No pneumothorax seen. Aorta normal in calib er withoutaneurysm or dissection. Mediastinum no adenopathy. Mediastinal shift is see n inthe left and right as a result of chronic changes in the right hemithorax. Heart shows no chamber enlargement or pericardial effusion. No acute fractures seen in the bony thorax, sternum, manubrium and rib cage. Multiple compressiondefor mities are seen in the mid and lower thoracic spine, with superimposedspondyloarthropa thy. Cannot exclude acute fracture.Impression: No evidence of pul monary embolism Right lower lobe pneumoniasuggested. Incidental scarring and retraction in the right hemithorax fromremote/chronic inflammatory disease and/or trauma. Bibasilar subsegmentalatelectasis. Report Electron ically Signed By: Pawel Zafar M.D. -11/08/2018 12:40 AMXr Chest PortResult D ate: 11/07/2018XR CHEST PORT CLINICAL INDICATION PROVIDED:. "sob." COMPARISON: . 09/26/2015.FINDINGS:. The pericardial/cardiac silhouette is enlarg ed in the transversedimension. There is no pulmonary vascular congestion or interst itial edema.Linear density in the left lung base and faint densities in the right mi d tolower lung likely represent atelectasis. There is no lobar consolidation oreffusi on. There is no pneumothorax.IMPRESSION:. Bilateral lower lung atelectasis. No donna dence of consolidation oreffusion.Assessment/PlanActive Problem s: SOB (shortness of breath) (02/08/2019) Pressure injury of right heel, stage 2 ( HCC) (02/09/2019) Leg wound, right, initial encounter (02/09/2019) Acute resp failur e combined better. pneumonia acute copd exacerbationPLAN,Monitoring,bipap prn fo r resp distress,abx as per id.Steroid nebbipap prn and at night.NebGi /dvt pro phylaxis.D/w nursing staff.Stella Hamilton MDNov2018The billing code submi tted in association with this evaluation also includes thetime to review patient's yuan or records, communicate with the physician team,obtain corroborating data, and disc uss the risk and benefits of the proposedmanagement plan with the patient and their family >30 minutes. Name Value Range Interpretation Code Description Data Harriett rce(s) Supporting Document(s ) ID Date Data Source [id number] 02/13/2019 08:40:08 AM EDT [facility] Name Value Range Interpretation Description Data Sup porting Code Source(s) Document(s ) Glucose 93 MG/DL 65-110 [facility] - [facility] [Mass/volume] Taoist in Blood by Hospital Automated test strip ID Date Data Source [id number] 02/13/2019 07:42:33 AM EDT [facility] Bedside and Verbal shift change report g iven to Rama Jaimes RN (oncomingnurse) by Asif Nicole RN (offgoing nurse). Rep ort included the following information SBAR, Kardex, MAR,Accordion and Recent Results . Name Value Range Interpretation Code Description Data Harriett rce(s) Supporting Document(s ) ID Date Data Source [id number] 02/13/2019 03:50:07 AM EDT [facility] Name Value Range Interpretation Description Data Sup porting Code Source(s) Document(s ) Magnesium 2.0 mg/dL 1.6-2.6 [facility] - [facility] [Mass/volume] Taoist in Serum or Hospital Plasma ID Date Data Source [id number] 02/13/2019 03:50:07 AM EDT [facility] Name Value Range Interpretation Description Data Sup porting Code Source(s) Document(s ) Sodium 136 136-145 [facility] - [facility] [Moles/volume] mmol/L Taoist in Serum or Hospital Plasma Potassium 4.4 3.5-5.1 [facility] [Moles/volume] mmol/L Taoist in Serum or Hospital Plasma Chloride 98 98-107 [facility] - [facility] [Moles/volume] mmol/L Taoist in Serum or Hospital Plasma Carbon 36 21-32 Above high normal [facility] - [facility] dioxide, total mmol/L [facility] [Moles/volume] Hospital in Serum or Plasma Anion gap in 7 mmol/L 10-20 Below low normal [facility] - Go od Serum or [facility] Plasma Hospital Glucose 114 74-106 Above high normal [facility] - Good [Mass/volume] mg/dL [facility] in Serum or Hospital Plasma Urea nitrogen 10 mg/dL 7-18 [facility] [Mass/volume] [facility] in Serum or Hospital Plasma Creatinine 0.32 0.70-1.3 Below low normal [facility] - [facility] [Mass/volume] mg/dL 0 [facility] in Serum or Hospital Plasma Glomerular >60 [facility] - [facility] filtration [facility] rate/1.73 sq M Hospital predicted among blacks [Volume Rate/Area] in Serum or Plasma by Creatinine-bas ed formula (MDRD) Glomerular >60 [facility] - Good filtration Taoist rate/1.73 sq M Hospital predicted among non-blacks [Volume Rate/Area] in Serum or Plasma by Creatinine-bas ed formula (MDRD) Calcium 9.3 8.5-10.1 [facility] - [facility] [Mass/volume] mg/dL [facility] in Serum or Hospital Plasma ID Date Data Source [id number] 02/13/2019 03:40:50 AM EDT [facility] Name Value Range Interpretation Description Data Sup porting Code Source(s) Document(s ) Leukocytes 8.4 K/uL 4.8-10.6 [facility] - [#/volume] in Good Blood by Taoist Automated count [facility] Erythrocytes 4.15 4.70-6.0 Below low normal [facility] - [#/volume] in M/uL 0 Good Blood by Taoist Automated count [facility] Hemoglobin 13.2 14.0-18. Below low normal [facility] - [Mass/volume] in g/dL 0 Good Blood [facility] Hematocrit 41.6 % 42.0-52. Below low normal [facility] - [Volume 0 Good Fraction] of [facility] Blood by Hospital Automated count Erythrocyte mean 100.2 FL 81.0-94. Above high normal [facility] - corpuscular 0 Good volume [Entitic Taoist volume] by Hospital Automated count Erythrocyte mean 31.8 PG 27.0-35. [facility] - corpuscular 0 Good hemoglobin [facility]ist [Entitic mass] [facility] by Automated count Erythrocyte mean 31.7 30.7-37. [facility] - corpuscular g/dL 3 Good hemoglobin [facility] [Mass/volume] by Automated count Erythrocyte 15.6 % 11.5-14. Above high normal [facility] - distribution 0 Good width [Ratio] by Taoist Automated count Hospital Platelets 300 K/uL 130-400 [facility] - [#/volume] in Good Blood by [facility] Automated count Hospital Platelet mean 9.3 FL 9.2-11.8 [facility] - volume [Entitic Good volume] in Blood [facility] by Automated Hospital count ID Date Data Source [id number] 02/13/2019 01:19:04 AM EDT [facility] Problem: Falls - Risk ofGoal: *Absence o f FallsDescriptionDocument Samra Fall Risk and appropriate interventions in the jhon wsheet.Outcome: Progressing Towards GoalNote:Fall Risk Interventions:Mentati on Interventions: Door open when patient unattended, Adequate sleep,hydration, pa in control, More frequent roundingMedication Interventions: Evaluate medications/cons ider consulting pharmacyElimination Interventions: Call light in reach, Toil eting schedule/hourly roundsProblem: Patient Education: Go to Patient Education Activ ityGoal: Patient/Family EducationOutcome: Progressing Towards Goal Name Value Range Interpretation Code Description Data Harriett rce(s) Supporting Document(s ) ID Date Data Source [id number] 02/12/2019 10:58:46 PM EDT [facility] PULMONARY/ CCM- Consult NotePatient: Ivelisse Carlin Sex: male DOA: 02/08/2019Date of : [birth year] Age: 68 y.o. LOS: LOS: 4 daysHPI: step down.Evelio Carlin is a 68 y.o. 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 Authoriz ing Providercefepime 2 gram 2 g IVPB 2 g by IntraVENous route every eight (8) hours. 02/12/19 Yes Malmazada, Christos, MDheparin sodium,porcine (HEPARIN, PORCINE,) 5,000 unit/mL injection 1 mL bySubCUTAneous route every twelve (12) hours every twelve (12 ) hours. 02/12/19Yes Christos Lopez MDpantoprazole (PROTONIX) 40 mg granules for oral suspension 40 mg by Per NG tuberoute Daily (before breakfast). 02/13 Yes Christos Lopez, MDpredniSONE (DELTASONE) 10 mg tablet Take 20 mg by m outh daily. 02/12/19 YesChristos Lopez, MDpredniSONE (DELTASONE) 10 mg tablet Ta ke 10 mg by mouth daily (with breakfast).02/12/19 Yes Christos Lopez , MDmultivitamin (MULTI-DELYN, WELLESSE) liqd 5 mL by Per G Tube route daily. YesPro vider, Historicalvalproic acid, as sodium salt, (DEPAKENE) 250 mg/5 mL (5 mL) soln oral mg by Per G Tube route every twelve (12) hours. Yes Provider, Historicalacetylcysteine (MUCOMYST) 100 mg/mL (10 %) nebulizer solution Take 4 m L byinhalation two (2) times a day. Yes Provider, Historicalzinc oxide 10 % topi inez cream Apply to affected area daily. Ribbon around GTsite Yes Provider, His toricalomeprazole (PRILOSEC) 2 mg/mL susp 2 mg/mL oral suspension (compounded) 40 mg byPer G Tube route daily. Yes Provider, Historicalsilver sulfADIAZINE (SILVADENE ) 1 % topical cream Apply to affected area two(2) times a day. 1 inch ribbon- right edge Yes Provider, Historicalcholestyramine-aspartame (QUES [place] LIGHT) 4 gram packet Take 1 Packet by mouthtwo (2) times a day.Patient taking differently: 4 g two (2) times a day. Via G tube. 01/24/19 YesMili Hills DOcl orazepate (TRANXENE) 3.75 mg tablet 1 Tab by Per G Tube route nightly. MaxDaily Amoun t: 3.75 mg. 12/30/18 Yes Mili Hills DOcinacalcet (SENSIPAR) 30 mg tablet Cecilio e 2 Tabs by mouth daily.Patient taking differently: 60 mg daily. Via G tube 12/14 10/31 Yes Mili Hills DOlamoTRIgine (LAMICTAL) 25 mg tablet 2 Tabs by Per G Tube route two (2) times aday. 12/30/18 Yes Mili Hills DOalbuterol-ipratropium (DUO-NEB) 2.5 mg-0.5 mg/3 ml nebu 3 mL by Nebulizationroute every six (6) hours. E very 6 hours while awake 12/30/18 Yes Mili Hills DObudesonide (PULMICORT) 0.5 mg/2 mL nbsp 2 mL by Nebulization route two (2) timesa day. 12/30/18 Yes Mili Hills DOacetaminophen (TYLENOL) 32MG/ML soln solution Take 20.3 mL by mouth ever y four(4) hours as needed for Pain or Fever. 01/24/19 Mili Hills DOinfelhamenza vaccine 2018-, 65 yrs+,,PF, (FLUZONE HIGH-DOSE) syrg injection 0.5mL by Intra MUSCular route PRIOR TO DISCHARGE. 01/24/19 Mili Hills DObacitracin 500 unit/g escobar ointment Apply 1 Packet to affected area two (2) timesa day. Indications: minor s kin infection due to bacteria, facial scabs 12/30/18Mili Hills DONo Known Aller giesPast Surgical History:Procedure Laterality Date HX GASTROSTOMY PEG- rep laced 11/2018History reviewed. 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 Use Smoking status: Never Smoker Smokeless tobacco: Never UsedSubstance a nd Sexual Activity Alcohol use: No Drug use: NoReview of SystemsPertinent items are noted in the History of Present Illness.Physical Exam:Current medication s:Current Facility-Administered Medications: methylPREDNISolone (PF) (Solu-MEDROL) i njection 40 mg, 40 mg, IntraVENous,Q12H, Chay Palma MD, 40 mg at 0911 budesonide (PULMICORT) 500 mcg/2 ml nebulizer suspension, 500 mcg,N ebulization, BID RT, Christos Lopez MD, 500 mcg at 02/12/19 0813 albuterol-ipratro pium (DUO-NEB) 2.5 MG-0.5 MG/3 ML, 3 mL, Nebulization, Q6HRT, Stella aHmilton MD, 3 mL at 02/12/19 0747 acetylcysteine (MUCOMYST) 100 mg/mL (10 %) nebulizer so lution 400 mg, 4 mL,Nebulization, TID RT, Krystian Monae MD, 400 mg at 02/12/19 07 48 sodium chloride (NS) flush 5-10 mL, 5-10 mL, IntraVENous, PRN, Hillary Palma MD cinacalcet (SENSIPAR) tablet 60 mg, 60 mg, Oral, DAILY, Justin Palma MD, 60 mg at 02/12/19 0911 ALPRAZolam (XANAX) tablet 0.25 mg, 0.25 mg, Per G Tube, QID PRN,Chay Palma MD, 0.25 mg at 02/10/193 lamoTR Igine (LaMICtal) tablet 50 mg, 50 mg, Per G Tube, BID, Chay Palma MD, 5 0 mg at 02/12/19 09 multivitamin (ONE A DAY) tablet 1 Tab, 1 Tab, Per G Tube, DA PIERRE,Chay Palma MD, 1 Tab at 02/12/19 0912 valproic acid (as sodium salt) (DEPAKENE) 250 mg/5 mL (5 mL) oral [id number] mg, 750 mg, Oral, Q12H, Chay Oswald MD, 750 mg at 02/12/19 0911 sodium chloride (NS) flush 5-40 m L, 5-40 mL, IntraVENous, Q8H, Chay Palma MD, 5 mL at 01/15 05/03 0637 sodium chloride (NS) flush 5-40 mL, 5-40 mL, IntraVENous, PRN, Chay Wiley MD, 10 mL at 02/11/19 1400 acetaminophen (TYLENOL) tablet 650 mg, 6 50 mg, Oral, Q4H PRN, Chay Flores MD, 650 mg at 02/09/19 2239 heparin (p orcine) injection 5,000 Units, 5,000 Units, SubCUTAneous, Q12H,Chay Palma MD, 5,000 Units at 02/11/19 2225 0.9% sodium chloride infusion, 100 mL/hr, Int raVENous, CONTINUOUS,Chay Palma MD, Last Rate: 100 mL/hr at 02/12/19 064 2, 100 mL/hr at1 0642 pantoprazole (PROTONIX) granules for oral suspension 40 mg, 40 mg, Per RAYNEtube, ACB, Chay Palma MD, 40 mg at 02/12/19 0911 o ndansetron (ZOFRAN) injection 4 mg, 4 mg, IntraVENous, Q6H PRN,Hillary Palma MD cefepime (MAXIPIME) 2 g in 0.9% sodium chloride (MBP/ADV) 100 mL MBP, 2 g,IntraVENous, Q8H, Chay Palma MD, Last Rate: 200 mL/hr at 349 , 2 g at 02/12/19 0349 insulin lispro (HUMALOG) injection, , SubCUTAneous, AC& HS, Chay Palma MD, Stopped at 02/08/19 2200 dextrose 40% (GLUTOSE) o ral gel 1 Tube, 15 g, Oral, PRN, Chay Palma MD glucagon (G LUCAGEN) injection 1 mg, 1 mg, SubCUTAneous, PRN, Chay Palma MD dextro se (D50) infusion 25 g, 50 mL, IntraVENous, PRN, Halevy-Avgush, RachelA, MDDataVisit VitalsBP 133/88 (BP 1 Location: Left arm, BP Patient Position: At rest)Pulse 85Temp 9 8.4 F (36.9 C)Resp 18Ht 5' 2" (1.575 m)Wt 61.2 kg (135 lb)SpO2 (!) 86%BMI 24.69 kg /m Intake and Output:Date 02/11/19699 - 02/12/19 0602/12/19699 - 02/13/19 0 659Shift 1165-7148 1433-2682 24 Hour Total 0406-8047 7037-8335 24 Hour TotalINTAKEI .V.(mL/kg/hr) 100(0.1) 1200(1.6) 1300(0.9) Volume (0.9% sodium chloride infusion) 1000 1000 Volume (cefepime (MAXIPIME) 2 g in 0.9% sodium chloride (MBP/ADV) 100 mL MB P)100 200 300NG/GT 689 295 4655 Water Flush Volume (mL) (Feeding Tube ) 0 400 400 M edication Volume (Feeding Tube ) 200 50 250 Intake (ml) (Feeding Tube ) 350 453 803S hift Total(mL/kg) 650(10.6) 2103(34.3) 2753(45)OUTPUTUrine(mL/kg/hr) Urine Occ urrence(s) 2 x 2 x 2 x 2 xStool Stool Occurrence(s) 2 x 2 xShift Total(mL/kg) NET 650 2103 2753Weight (kg) 61.2 61.2 61.2 61.2 61.2 61.2Pulse OX:SpO2 Readings fro m Last 6 Encounters:02/12/19 (!) 86%01/24/19 93%12/30/18 96%11/27/18 91%09/26/15 96%@ LASTSAO2(6)@PHYSICAL EXAM:General: Lethargic,responding.Head: Normocephal ic, without obvious abnormality, atraumatic.Eyes: Conjunctivae clear, a nicteric sclerae. Pupils are equalNose: Nares normal. No drainage or sinus tende rness.Throat: Lips, mucosa, and tongue normal. No ThrushNeck: Supple, symmetr ical, no adenopathy, thyroid: non tender no carotid bruit and no JVD.Back: Symmet rodger, No CVA tenderness.Lungs: Scattered rhonchi,Chest wall: No tenderness or de formity. No Accessory muscle use.Heart: Regular rate and rhythm, no murmur, rub or gallop.Abdomen: Soft, non-tender. Not distended. Bowel sounds normal. No mass esExtremities: Extremities normal, atraumatic, No cyanosis. No edema. No c lubbingSkin: Texture, turgor normal. No rashes or lesions. Not JaundicedLymph n odes: Cervical, supraclavicular normal.Psych: Good insight. Not depressed. Not anxi ous or agitated.Neurologic: EOMs intact. No facial asymmetry. No aphasia or slurred speech.Most recent labs:Recent Labs 02/12/1904WB C 6.9 10.9* 8.8HGB 12.3* 11.5* 10.7*HCT 37.4* 35.8* 34.4*PLT 314 330 287Recent Labs 1 02/13/1904NA -- 137 135* 136K -- 4 .0 4.1 4.2CL -- 99 97* 100CO2 37* 35* 36* 35*GLU -- 114* 96 113*BUN -- 13 16 1 9*CREA -- 0.32* 0.33* 0.38*CA -- 9.0 8.8 8.7MG -- 2.0 1.7 1.9ALB -- -- -- 1.9*TBILI -- -- -- 0.2SGOT -- -- -- 13*ALT -- -- -- 7*Recent Labs 02/09/1914 7.47* 7.42PCO2 49* 55*PO2 64* 59*HCO3 36* 36*FIO2 21.0 --ABG:Recent Labs 02/09/1914 7.47* 7.42PCO2 49* 55*PO2 64* 59*HCO3 36* 36*FIO2 21.0 --Cultures:No results found for: SDESLab ResultsCompon ent Value Date/Time Culture result: NO GROWTH 4 DAYS 02/08/2019 05:19 PM Culture resul t: NO GROWTH 4 DAYS 02/08/2019 05:00 PM Culture result: NO GROWTH 5 DAYS 019 11:30 PM Culture result: NO GROWTH 2 DAYS 01/21/2019 11:15 PM Culture result: NO G ROWTH 5 DAYS 01/21/2019 11:00 PM Culture result: NO GROWTH 1 DAY 01/10/2019 08:58 AM Culture result: NO GROWTH 5 DAYS 01/10/2019 07:55 AM Culture result: NO G ROWTH 5 DAYS 01/10/2019 07:40 AM Culture result: NO GROWTH 5 DAYS 12/29/2018 11:2 3 AM Culture result: NO GROWTH 5 DAYS 12/29/2018 11:00 AM Culture result: 10,0 00 to 50,000 COLONIES/mL KLEBSIELLA PNEUMONIAE (A)12/29/2018 11:00 AM Cultur e result: 50,000-100,000 COLONIES/mL PSEUDOMONAS AERUGINOSA (A)12/29/2018 11: 00 AM Culture result: (A) 12/29/2018 11:00 AM 10,000 to 50,000 COLONIES/mL STAPHYLOCO CCUS EPIDERMIDIS Culture result: NO GROWTH 2 DAYS 12/24/2018 09:45 AM Culture result: NO GROWTH 5 DAYS 12/23/2018 12:00 PM Culture result: NO GROWTH 5 DAYS 12/23/2018 11:4 0 AM Culture result: NO GROWTH 4 DAYS 12/19/2018 12:30 PM Culture result: NO G ROWTH 4 DAYS 12/19/2018 12:30 PM Culture result: NO GROWTH 1 DAY 12/12/2018 08:04 PM Culture result: NO GROWTH 5 DAYS 12/12/2018 07:40 PM Culture result: NO G ROWTH 5 DAYS 12/12/2018 07:40 PM Culture result: NO GROWTH 2 DAYS 11/20/2018 09:0 0 AM Culture result: NO GROWTH 5 DAYS 11/07/2018 08:10 PM Culture result: NO G ROWTH 5 DAYS 11/07/2018 08:00 PMImages:Cta Chest W Or W Wo ContResult Date: 11/09/19 19Examination: CTA Chest ? PE angiography History: Hypoxia; rule out pneumoniavers us pulmonary embolism Priors: None Technique: Low-dose, multiplanar,helica l CTA chest was performed with bolus IV injection from lung apices tobases. 3D- reformatted images were obtained and reviewed on a dedicated viewingworkstation and di rectly supervised. Contrast: A total of 71 mL of Isovue-370was administered intravenou sly for this procedure. Findings: No evidence ofpulmonary embolism is seen. T here is decreased size of the right hemithorax fromchronic scarring and retr action with mediastinal shift left to right.Additional area of consolidation i s seen in the right lower lobe and suggestssuperimposed pneumonia with subs egmental atelectasis. Subsegmental atelectasisis also noted in the left jorge g base, with pleural parenchymal scarring. Lowlung volumes are seen. No pneumothora x seen. Aorta normal in caliber withoutaneurysm or dissection. Mediastin um no adenopathy. Mediastinal shift is seen inthe left and right as a result of chr onic changes in the right hemithorax.Heart shows no chamber enlargement or pericard ial effusion. No acute fracturesseen in the bony thorax, sternum, manubrium and rib cage. Multiple compressiondeformities are seen in the mid and lower thoracic spine , with superimposedspondyloarthropathy. Cannot exclude acute fracture.Impression : No evidence of pulmonary embolism Right lower lobe pneumoniasuggested. Incidenta l scarring and retraction in the right hemithorax fromremote/chronic inflammato ry disease and/or trauma. Bibasilar subsegmentalatelectasis. Report Electron ically Signed By: Pawel Zafar M.D. -11/08/2018 12:40 AMXr Chest PortResult D ate: 11/07/2018XR CHEST PORT CLINICAL INDICATION PROVIDED:. "sob." COMPARISON: . 09/26/2015.FINDINGS:. The pericardial/cardiac silhouette is enlarg ed in the transversedimension. There is no pulmonary vascular congestion or interst itial edema.Linear density in the left lung base and faint densities in the right mi d tolower lung likely represent atelectasis. There is no lobar consolidation oreffusi on. There is no pneumothorax.IMPRESSION:. Bilateral lower lung atelectasis. No donna dence of consolidation oreffusion.Assessment/PlanActive Problem s: SOB (shortness of breath) (02/08/2019) Pressure injury of right heel, stage 2 ( HCC) (02/09/2019) Leg wound, right, initial encounter (02/09/2019) Acute resp failur e combined better. pneumonia acute copd exacerbationPLAN,Monitoring,bipap prn fo r resp distress,abx as per id.Steroid nebbipap prn and at night.NebGi /dvt pro phylaxis.D/w nursing staff.Stella Hamilton MDOct2018The billing code submi tted in association with this evaluation also includes thetime to review patient's yuan or records, communicate with the physician team,obtain corroborating data, and disc uss the risk and benefits of the proposedmanagement plan with the patient and their family >30 minutes. Name Value Range Interpretation Code Description Data Harriett rce(s) Supporting Document(s ) ID Date Data Source [id number] 02/12/2019 09:28:53 PM EDT [facility] Name Value Range Interpretation Description Data Sup porting Code Source(s) Document(s ) Glucose 99 MG/DL 65-110 [facility] [Mass/volume] Taoist in Blood by Hospital Automated test strip ID Date Data Source [id number] 02/12/2019 06:36:08 PM EDT [facility] Bedside and Verbal shift change report g iven to abbey nicole rn (oncoming nurse) Tay Delacruz RN(offgoing nurse). Report given with SBAR, Kardex, Intake/Output, MAR and RecentResults. Name Value Range Interpretation Code Description Data Harriett rce(s) Supporting Document(s ) ID Date Data Source [id number] 02/12/2019 06:27:28 PM EDT [facility] ID Progress Note02/12/2019Subjective:Pat ient with MR non verbal,unable to provide history.AfebrileWbc trending down.Object britni:Vitals:Patient Vitals for the past 24 hrs: BP Temp Pulse Resp NdU68002/12/19 145 0 118/72 98.6 F (37 C) 96 18 (!) 88 %02/12/19 1107 133/88 98.4 F (36.9 C) 85 18 (!) 86 %02/12/19 0742 143/90 97.6 F (36.4 C) 87 18 95 %02/12/19 0547 (!) 16 0/100 98.2 F (36.8 C) 80 18 95 %02/11/19 2324 138/88 98 F (36.7 C) 84 18 94 % 1938 (!) 143/92 97.2 F (36.2 C) 85 18 93 %02/11/19 193 - - - - 93 % 9 1529 111/79 97.9 F (36.6 C) 89 18 93 %Tmax: Temp (24hrs), Av F (36.7 C ), Min:97.2 F (36.2 C), Max:98.6 F (37 C)Physical Exam:General: Awake non vera bl cooperative, no distressEyes: Conjunctivae/corneas clear. PERRLNeck: S upple, symmetrical, trachea midline, no adenopathyLungs: Bilateral breath soun ds with basal crackles..Heart: Regular rate and rhythm, S1, S2 normal, no murmurAbdo men: Soft, non-tender. Bowel sounds normal. No masses, No organomegaly.+peg+Back: No CVA tenderness.Extremities: No cyanosis,chronic lymphedemaPulses: 2+ an d symmetric all extremities.Skin: Skin color, texture, turgor normal. No rashes or les ionsCurrent Facility-Administered MedicationsMedication Dose Route Frequen cy methylPREDNISolone (PF) (Solu-MEDROL) injection 40 mg 40 mg IntraVENous Q12H budesonide (PULMICORT) 500 mcg/2 ml nebulizer suspension 500 mcg Nebulizati onBID RT albuterol-ipratropium (DUO- NEB) 2.5 MG-0.5 MG/3 ML 3 mL Nebulization Q6H RT acetylcysteine (MUCOMYST) 100 mg/mL (10 %) nebulizer solution 400 mg 4 mLNebulizat ion TID RT sodium chloride (NS) flush 5-10 mL 5-10 mL IntraVENous PRN cinacalcet (SENSIPAR) tablet 60 mg 60 mg Oral DAILY ALPRAZolam (XANAX) tablet 0.25 mg 0.25 mg Per G Tube QID PRN lamoTRIgine (LaMICtal) tablet 50 mg 50 mg Per G Tube BID mult ivitamin (ONE A DAY) tablet 1 Tab 1 Tab Per G Tube DAILY valproic acid (as sodium s alt) (DEPAKENE) 250 mg/5 mL (5 mL) oral solution 750mg 750 mg Oral Q12H sodium chloride (NS) flush 5-40 mL 5-40 mL IntraVENous Q8H sodium chloride (NS) fl ush 5-40 mL 5-40 mL IntraVENous PRN acetaminophen (TYLENOL) tablet 650 mg 6 50 mg Oral Q4H PRN heparin (porcine) injection 5,000 Units 5,000 Units SubCU TAneous Q12H 0.9% sodium chloride infusion 100 mL/hr IntraVENous CONTINUOUS pantop razole (PROTONIX) granules for oral suspension 40 mg 40 mg Per NG tubeACB ondansetron (ZOFRAN) injection 4 mg 4 mg IntraVENous Q6H PRN cefepime (MAXIPIME) 2 g in 0.9% sodium chloride (MBP/ADV) 100 mL MBP 2 gIntraVENous Q8H insulin lispro (HUMALOG) injection SubCUTAneous AC&HS dextrose 40% (GLUTOSE) oral gel 1 Tube 15 g Oral PRN glucagon (GLUCAGEN) injection 1 mg 1 mg SubCUTAneous PRN dextrose (D 50) infusion 25 g 50 mL IntraVENous PRNLabs:Recent Labs 02/11/1904WBC 6.9 10.9* 8.8HGB 12.3* 11.5* 10.7*PLT 314 330 287BUN 13 16 19*C SHILO 0.32* 0.33* 0.38*SGOT -- -- 13*AP -- -- 71TBILI -- -- 0.2Cultures:Lab ResultsComponent Value Date/Time Culture result: NO GROWTH 4 DAYS 02/08/2019 05:1 9 PM Culture result: NO GROWTH 4 DAYS 02/08/2019 05:00 PM Culture result: NO G ROWTH 5 DAYS 01/21/2019 11:30 PMRadiology:Xr Chest Sngl VResult Date: 02/12/2019CHEST one view HISTORY: Followup lung pathology. Comparison is made to previousstudies. A ccounting for differences in technique there has been no significantchange of right b vivian infiltrate/effusion. There is a poor inspiratory effortand patient rotation t owards the right. No other interval change is noted.IMPRESSION: No significant change. Assessment: Aspiration pneumonia Acute COPD exacerbation. Acute respiratory failure with hypoxia. Dysphagia Atelectasis Plan:1. Continue IV cefepime2. Follow cu ltures.Cassy Beauchamp 20183:06 PM Name Value Range Interpretation Code Description Data Harriett rce(s) Supporting Document(s ) ID Date Data Source [id number] 02/12/2019 04:47:35 PM EDT [facility] Name Value Range Interpretation Description Data Sup porting Code Source(s) Document(s ) Glucose 115 MG/DL 65-110 Above high normal [facility] [Mass/volume] [facility] in Blood by Hospital Automated test strip ID Date Data Source [id number] 02/12/2019 03:06:56 PM EDT [facility] A YUAN started. Name Value Range Interpretation Code Description Data Harriett rce(s) Supporting Document(s ) ID Date Data Source [id number] 02/12/2019 01:46:02 PM EDT [facility] Relevant ProblemsNo relevant active prob lemsAnesthetic HistoryReview of Systems / Medical HistoryPertinent labs reviewedPu lmonaryCOPDPneumoniaComments: H/o resp failure Neuro/PsychPsychiatric history C ardiovascularComments: EF 55-60%GI/Hepatic/RenalGERD: well control led Endo/Other Other FindingsComments: S/p surgical J tube and surgical G tubeMenta l retardationUnable to provide historyPhysical ExamAirwayMallampati: II TM Distance: 4 - 6 cmNeck ROM: normal range of motionMouth opening: NormalComments: Unable to assess CardiovascularRhythm: regularRate: abnormal DentalNo notable d ental hxComments: Poor dentitionPulmonaryDecreased breath sound s AbdominalGI exam deferred Other FindingsAnesthetic PlanASA: 4Anesthesia type: MACAnesthetic plan and risks discussed with: Family and Legal guardianPhone con sent from pt's nephew, unavailable Name Value Range Interpretation Code Description Data Harriett rce(s) Supporting Document(s ) ID Date Data Source [id number] 02/12/2019 01:06:56 PM EDT [facility] GI CONSULTATION NOTENAME: Evelio Abraham beinDOB: 1950MRN: [id number] Physician: ReinierConsult Date: 9Chief Complaint: ? aspirationHistory of Present Illness: Patient is a 68 y.o. w ho is seen in consultationfor conversion of GT to JT. Seen on recent admission for t he same after hepresented with resp distress, however family unable to be reached for consent(tried several times). 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 Taking?acetaminophen (TYLENOL) 32MG/ML s oln solution Unknown at Unknown time No NoSig: Take 20.3 mL by mouth every four (4) hours as needed for Pain or Fever.acetylcysteine (MUCOMYST) 100 mg/m L (10 %) nebulizer solution 02/08/2019 at 0830Yes YesSig: Take 4 mL by inhalation two (2) times a day.albuterol-ipratropium (DUO-NEB) 2.5 mg-0.5 mg/3 ml nebu 2018 at 1200 NoYesSi mL by Nebulization route every six (6) hours. Every 6 hours while awakebacitracin 500 unit/gram ointment No NoSig: Apply 1 Packet to affected a shilo two (2) times a day. Indications: minorskin infection due to bacteria, fac ial scabsbudesonide (PULMICORT) 0.5 mg/2 mL nbsp 02/08/2019 at 0830 No YesSi mL by Nebulization route two (2) times a day.cholestyramine-aspartame (QUESTRAN L IGHT) 4 gram packet 02/08/2019 at 0830 NoYesSig: Take 1 Packet by mouth two (2) times a day.Patient taking differently: 4 g two (2) times a day. Via G tube.cinacalc et (SENSIPAR) 30 mg tablet 02/08/2019 at Unknown time No YesSig: Take 2 Tabs by mouth daily.Patient taking differently: 60 mg daily. Via G tubeclorazepate (TRANXENE) 3.75 mg tablet 02/07/2019 at Unknown time No YesSi Tab by Per G Tube route nightl y. Max Daily Amount: 3.75 mg.influenza vaccine 2018-, 65 yrs+,,PF, (FLUZONE H IGH-DOSE) syrg injection NoNoSi.5 mL by IntraMUSCular route PRIOR TO DISCHARGE.l amoTRIgine (LAMICTAL) 25 mg tablet 02/08/2019 at 0830 No YesSi Tabs by Per G Tube route two (2) times a day.multivitamin (MULTI-DELYN, WELLESSE) liqd 02/08/2019 at Unknown time Yes YesSi mL by Per G Tube route daily.omeprazole (PRILOSEC) 2 mg/mL susp 2 mg/mL oral suspension (compounded)02/08/2019 at Unknown time Yes YesSi mg by Per G Tube route daily.silver sulfADIAZINE (SILVADENE) 1 % topical cream 02/08/2019 at Unknown timeYes YesSig: Apply to affected area two (2) times a day. 1 inch ribbon- right shinvalproic acid, as sodium salt, (DEPA KENE) 250 mg/5 mL (5 mL) soln oral zirdsdow27/27/2019 at 0830 Yes YesSi mg by Per G Tube route every twelve (12) hours.zinc oxide 10 % topical cream 01/14 at Unknown time Yes YesSig: Apply to affected area daily. Ribbon around GT si teFacility-Administered Medications: NoneHospital Medications:Current Facilit y-Administered MedicationsMedication Dose Route Frequency methylPREDNISolone (PF) (Solu-MEDROL) injection 40 mg 40 mg IntraVENous Q12H budesonide (PULMICORT) 500 mcg/2 ml nebulizer suspension 500 mcg NebulizationBID RT albuterol-ipratropiu m (DUO-NEB) 2.5 MG-0.5 MG/3 ML 3 mL Nebulization Q6H RT acetylcysteine (MUC OMYST) 100 mg/mL (10 %) nebulizer solution 400 mg 4 mLNebulization TID RT sodium chloride (NS) flush 5-10 mL 5-10 mL IntraVENous PRN cinacalcet (SENSIPAR) t ablet 60 mg 60 mg Oral DAILY ALPRAZolam (XANAX) tablet 0.25 mg 0.25 mg Per G Tu be QID PRN lamoTRIgine (LaMICtal) tablet 50 mg 50 mg Per G Tube BID multivitamin ( ONE A DAY) tablet 1 Tab 1 Tab Per G Tube DAILY valproic acid (as sodium salt) (D EPAKENE) 250 mg/5 mL (5 mL) oral solution 750mg 750 mg Oral Q12H sodium chloride (NS) flush 5-40 mL 5-40 mL IntraVENous Q8H sodium chloride (NS) flush 5-40 mL 5-40 mL IntraVENous PRN acetaminophen (TYLENOL) tablet 650 mg 650 mg Oral Q4H PRN hepa rin (porcine) injection 5,000 Units 5,000 Units SubCUTAneous Q12H 0.9% sodium chl oride infusion 100 mL/hr IntraVENous CONTINUOUS pantoprazole (PROTONIX) gran ules for oral suspension 40 mg 40 mg Per NG tubeACB ondansetron (ZOFRAN) injection 4 mg 4 mg IntraVENous Q6H PRN cefepime (MAXIPIME) 2 g in 0.9% sodium chloride ( MBP/ADV) 100 mL MBP 2 gIntraVENous Q8H insulin lispro (HUMALOG) injection Sub CUTAneous AC&HS dextrose 40% (GLUTOSE) oral gel 1 Tube 15 g Oral PRN glucagon (GLU CAGEN) injection 1 mg 1 mg SubCUTAneous PRN dextrose (D50) infusion 25 g 50 mL Intr aVENous PRNSocial History:Social HistoryTobacco Use Smoking status: Nilo uribe Smoker Smokeless tobacco: Never UsedSubstance Use Topics Alcohol use: N oFamily History:History reviewed. No pertinent family history.Review of Syste ms:A detailed 10 system ROS is obtained, with pertinent positives as listed in theHPI and PMH. All others are negative.Objective:Patient Vitals for th e past 8 hrs: BP Temp Pulse Resp YzX07202/12/19 1107 133/88 98.4 F (36.9 C) 85 18 (!) 86 %02/12/19 0742 143/90 97.6 F (36.4 C) 87 18 95 %02/12/19 0547 (!) 160/100 98.2 F (36.8 C) 80 18 95 %No intake/output data recorded.02/10 1901 - 02/12 0700In: 5739 .7 [I.V.:3766.7]Out: -PHYSICAL EXAM:General: no acute distress HEENT: NC, Atraumatic . PERRLA, EOMI. Anicteric sclerae.Lungs: CTA Bilaterally. No Wheezing/Rhonchi/Ral es.Heart: Regular rhythm, No murmur (), No Rubs, No GallopsAbdomen: Soft, Non diste nded, Non tender. +Bowel sounds, no HSM; 24 fr lozano insitu as PEG tubeExtremities: No c/c/eNeurologic: CN 2-12 gi, Alert and oriented X 3. No acute neurological dis tressPsych: Good insight. Not anxious nor agitated.Data ReviewRecent Labs 16394 WBC 6.9 10.9*HGB 12.3* 11.5*HCT 37.4* 35.8*PLT 314 330Recent La bs 02/13/1904NA -- 137 135*K -- 4.0 4.1CL -- 99 97* CO2 37* 35* 36*BUN -- 13 16CREA -- 0.32* 0.33*GLU -- 114* 96CA -- 9.0 8.8Rece nt Labs SGOT 13*AP 71TP 6.5ALB 1.9*GLOB 4.6No results for input(s): INR , PTP, APTT, INREXT in the last 72 hours.Imaging studies reviewedAssessment :Patient Active Problem ListDiagnosis Code 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 COPD (chronic obstructive pulmonary disease) ([facility]) J44.9 Acute respiratory distress R06.03 Pneumonia J18.9 COPD exacerbation ([facility]) J44.1 Sepsis due to undetermined organism ([facility]) A41.9 Generalized anxiety disorder F41.1 Acute respiratory failur e with hypoxia ([facility]) J96.01 Pneumonia involving right lung J18.9 Hyponatremia E87.1 SOB (shortness of breath) R06.02 Pressure injury of right heel, stage [address] [facility]) L89.612 Leg wound, right, initial encounter S81.099APlan:Will contact reilly pompa. GT to JT conversion kit is being fed ex'd and should beavailable for procedure amelia crenshaweleazar. Name Value Range Interpretation Code Description Data Harriett rce(s) Supporting Document(s ) ID Date Data Source [id number] 02/12/2019 12:27:25 PM EDT [facility] discharged pt. [facility] [place] [facility] [place] [facility] for 2:30 pm. RN made aware.Call placed to pt's decision maker Joyce ([phone]) to make awar e ofdischarge and pt to return to [place] [facility] today. Decision maker Joycequestioning when pt will be getting J tube as she is reporting it was supposedto be placed th is hospital admission. Made Joyce aware pt has not been seen byGI for a J tube this admission. At this time decision maker became verballyfrustrated and reporting that pt was supposed to be seen and that her juancarlos physician. Joyce reports navi [facility] will not allow pt to be discharged back [facility] until seen by GI and a J t ube is placed as family feels pt is"aspirating due to PEG tube being to h igh". Decision maker Joyce reports shewill appeal the discharge.Spoke with who w as made aware. Spoke with RN who was made aware. reports to continue with discha rge back to [place]. Name Value Range Interpretation Code Description Data Harriett rce(s) Supporting Document(s ) ID Date Data Source [id number] 02/12/2019 12:04:17 PM EDT [facility] Progress NotePatient: Evelio Carlin Sex: male DOA: 02/08/2019Date of : 1950 Age: 68 y.o. LOS: 4 daysThis is medicine coverage for dr Baum bjective:Patient was seen earlier today. Pt is awake/ non verbal/ hemodynamically st able.No fever/ chills/ sob/ cp/ n/ v/ d.ROS---- Unable to obtain.Pt is seen f orPneumonia right baseAtelectasis LLLCopdgerdPulmonary embolismMental concetta rdationObjective:Visit VitalsBP 133/88 (BP 1 Location: Left arm, BP Patient Position: At rest)Pulse 85Temp 98.4 F (36.9 C)Resp 18Ht 5' 2" (1.575 m)Wt 61.2 kg (135 lb)S pO2 (!) 86%BMI 24.69 kg/m Physical Exam: General: WD,thin. awake, cooperativ e, no acute distress.on o2nc HEENT: NC, Atraumatic. PERRLA, anicter ic sclerae.pink conjunctiva Lungs: b/l ae. No Wheezing/Rhonchi/Rale s. Heart: Regular rhythm, No murmur, No Rubs, No Gallops.s1,s2 Abdomen: Soft, Non distended, Non tender. +Bowel sounds.pos peg Extremities: N o c/c/e. Psych: Not anxious or agitated. Neurologic: No acute neur ological deficit. Skin : No rash Back : No cva tendernessIntake and Output:Intake/Output Summary (Last 24 ho urs) at 02/12/2019 1144Last data filed at 02/12/2019 0410Gross per 24 hourIntake 2 653 mlOutput -Net 2653 mlLab/Data Reviewed:Recent Labs 02/12/1904WBC -- 6.9 10.9* 8.8 --HG B -- 12.3* 11.5* 10.7* --PLT -- 314 330 287 --BUN -- 13 16 19* --CREA -- 0 .32* 0.33* 0.38* --SGOT -- -- -- 13* --AP -- -- -- 71 --TBILI -- -- -- 0.2 --NA -- 137 135* 136 --CL -- 99 97* 100 --K -- 4.0 4.1 4.2 --MG -- 2.0 1.7 1.9 --PH 7.47* -- -- -- 7.42CA -- 9.0 8.8 8.7 --Special Reque sts:Date Value Ref Range Gxwcyw0902/08/2019 NO SPECIAL REQUESTS PreliminaryCulture re sult:Date Value Ref Range Ujrqnx7802/08/2019 NO GROWTH 4 DAYS PreliminaryXR Results (m ost recent):Results from Hospital Encounter encounter on 02/08/19XR CHEST SNGL V Rob rative CHEST one viewHISTORY: Followup lung pathology.Comparison is made to previous studies.Accounting for differences in technique there has been no significant change ofright basal infiltrate/effusion. There is a poor inspiratory effort and p atientrotation towards the right.No other interval change is noted. Impression IMP RESSION: No significant change. CXRMedications Reviewed:Current Facility -Administered MedicationsMedication Dose Route Frequency methylPREDNISolone (PF) (Solu-MEDROL) injection 40 mg 40 mg IntraVENous Q12H budesonide (PULMICORT) 500 mcg/2 ml nebulizer suspension 500 mcg NebulizationBID RT albuterol-ipratropiu m (DUO-NEB) 2.5 MG-0.5 MG/3 ML 3 mL Nebulization Q6H RT acetylcysteine (MUC OMYST) 100 mg/mL (10 %) nebulizer solution 400 mg 4 mLNebulization TID RT sodium chloride (NS) flush 5-10 mL 5-10 mL IntraVENous PRN cinacalcet (SENSIPAR) t ablet 60 mg 60 mg Oral DAILY ALPRAZolam (XANAX) tablet 0.25 mg 0.25 mg Per G Tu be QID PRN lamoTRIgine (LaMICtal) tablet 50 mg 50 mg Per G Tube BID multivitamin ( ONE A DAY) tablet 1 Tab 1 Tab Per G Tube DAILY valproic acid (as sodium salt) (D EPAKENE) 250 mg/5 mL (5 mL) oral solution 750mg 750 mg Oral Q12H sodium chloride (NS) flush 5-40 mL 5-40 mL IntraVENous Q8H sodium chloride (NS) flush 5-40 mL 5-40 mL IntraVENous PRN acetaminophen (TYLENOL) tablet 650 mg 650 mg Oral Q4H PRN hepa rin (porcine) injection 5,000 Units 5,000 Units SubCUTAneous Q12H 0.9% sodium chl oride infusion 100 mL/hr IntraVENous CONTINUOUS pantoprazole (PROTONIX) gran ules for oral suspension 40 mg 40 mg Per NG tubeACB ondansetron (ZOFRAN) injection 4 mg 4 mg IntraVENous Q6H PRN cefepime (MAXIPIME) 2 g in 0.9% sodium chloride ( MBP/ADV) 100 mL MBP 2 gIntraVENous Q8H insulin lispro (HUMALOG) injection Sub CUTAneous AC&HS dextrose 40% (GLUTOSE) oral gel 1 Tube 15 g Oral PRN glucagon (GLU CAGEN) injection 1 mg 1 mg SubCUTAneous PRN dextrose (D50) infusion 25 g 50 mL Intr aVENous PRNAssessmentActive Problems: SOB (shortness of breath) (02/08/2019) Pres sure injury of right heel, stage 2 (HCC) (02/09/2019) Leg wound, right, initial encounter (02/09/2019)pneumonia RLLAtelectasis LLLcopggerdMental retarda tionH/o PEparkinson'sPlan1. Continue o22. Bd3. abx4. Hydration5. Labs in snf6. D/c planningContinue current treatment.My assessment, plan of care, findings, medi cations, side effects etc werediscussed with:[X]nursing [ ]PT/OT[ ]respiratory therapy [ ][ ]family [ ]PatientChristos Lopez MDKarmanos [facility] 201811:44 AM Name Value Range Interpretation Code Description Data Harriett rce(s) Supporting Document(s ) ID Date Data Source [id number] 02/12/2019 11:38:51 AM EDT [facility] Discharge SummaryPatient: Evelio Parks cain Sex: male DOA: 02/08/2019Date of : 1950 Age: 68 y.o. LOS: 4 daysAdmit Date: 02/08/2019Discharge Date: 02/12/2019Disc thomas Diagnoses: This is medicine coverage for dr Lee List as of Date Reviewed: 02/11/2019 Codes Class Noted - Resolved Pressure in jury of right heel, stage 2 (HCC) ICD-10-CM: L89.612ICD-9-CM: 707.07, 707.22 019 - Present Leg wound, right, initial encounter ICD-10-CM: S81.904RPLK-8-YV: 8 94.0 02/09/2019 - Present SOB (shortness of breath) ICD-10-CM: R06.02ICD-9-CM: 786.0 5 02/08/2019 - Present Acute respiratory failure with hypoxia (HCC) ICD-10-CM: J9 6.01ICD-9-CM: 518.81 01/10/2019 - Present Pneumonia involving right lung ICD-10-CM : J18.9ICD-9-CM: 486 01/10/2019 - Present Hyponatremia ICD-10-CM: E87.1ICD-9-CM: 2 76.1 01/10/2019 - Present Generalized anxiety disorder (Chronic) ICD-10-CM: F41.1ICD-9 -CM: 300.02 12/30/2018 - Present Sepsis due to undetermined organism (HCC) ICD-10-CM : A41.9ICD-9-CM: 038.9 12/12/2018 - Present COPD (chronic obstructive pulmonary dise ase) (HCC) ICD-10-CM: J44.9ICD-9-CM: 496 11/08/2018 - Present Acute respiratory di stress ICD-10-CM: R06.03ICD-9-CM: 518.82 11/08/2018 - Present Pneumonia ICD-10-CM: J18.9ICD-9-CM: 486 11/08/2018 - Present COPD exacerbation (HCC) ICD-10-CM: J44.1ICD-9 -CM: 491.21 11/08/2018 - Present Paraesophageal hiatal hernia ICD-10-CM: K44.9ICD-9-CM: 553.3 09/26/2015 - PresentDischarge Condition: FairHospital Course: pt was admitted with pneumonia, RLL, left atelectasis,hyponatremia. Pt was se en by pulmonary, ID. Pt's status improving, will requireabx, o2, bd, steroid.will di scharge to rehab/ snf.Consults: Infectious Disease, Internal Medicine and Pulmonary /Critical CareSignificant Diagnostic Studies: labs, microbiology, and radiologyDischar ge Medications:Current Discharge Medication ListSTART taking these medications Detai lscefepime 2 gram 2 g IVPB 2 g by IntraVENous route every eight (8) hours.Qty: 10 Dose , Refills: 0heparin sodium,porcine (HEPARIN, PORCINE,) 5,000 unit/mL injection 1 mL b ySubCUTAneous route every twelve (12) hours every twelve (12) hours.Qty: 10 mL, Refi lls: 0pantoprazole (PROTONIX) 40 mg granules for oral suspension 40 mg by Per NG tube route Daily (before breakfast).Qty: 30 Each, Refills: 0CONTINUE these medications i have NOT CHANGED Detailsmultivitamin (MULTI-DELYN, WELLESSE) liqd 5 mL by Per G Tube route daily.valproic acid, as sodium salt, (DEPAKENE) 250 mg/5 mL (5 mL) soln oral [id number] mg by Per G Tube route every twelve (12) hours.acetylcysteine ( MUCOMYST) 100 mg/mL (10 %) nebulizer solution Take 4 mL byinhalation two (2) times a d ay.zinc oxide 10 % topical cream Apply to affected area daily. Ribbon around GTsit eomeprazole (PRILOSEC) 2 mg/mL susp 2 mg/mL oral suspension (compounded) 40 mg byPer G Tube route daily.silver sulfADIAZINE (SILVADENE) 1 % topical cream Apply to affected area two(2) times a day. 1 inch ribbon- right shincholestyramine-asparta me (QUESTRAN LIGHT) 4 gram packet Take 1 Packet by mouthtwo (2) times a day.Qty: 60 Packet, Refills: 1clorazepate (TRANXENE) 3.75 mg tablet 1 Tab by Per G Tube route nightly. MaxDaily Amount: 3.75 mg.Qty: 30 Tab, Refills: 5 Associated Diagnoses: Ge neralized anxiety disordercinacalcet (SENSIPAR) 30 mg tablet Take 2 Tabs by m outh daily.Qty: 60 Tab, Refills: 5lamoTRIgine (LAMICTAL) 25 mg tablet 2 Tabs by Per G Tube route two (2) times aday.Qty: 60 Tab, Refills: 5albuterol-ipratropium (DUO-NEB ) 2.5 mg-0.5 mg/3 ml nebu 3 mL by Nebulizationroute every six (6) hours. E very 6 hours while awakeQty: 30 Nebule, Refills: 0budesonide (PULMICORT) 0.5 mg/ 2 mL nbsp 2 mL by Nebulization route two (2) timesa day.Qty: 60 Each, Refills: 0aceta minophen (TYLENOL) 32MG/ML soln solution Take 20.3 mL by mouth every four(4) hours as needed for Pain or Fever.Qty: 250 mL, Refills: 0influenza vaccine 2019-, 65 yrs+,,PF, (FLUZONE HIGH-DOSE) syrg injection 0.5mL by IntraMUSCular route PRIOR TO DI SCHARGE.Qty: 1 Syringe, Refills: 0bacitracin 500 unit/gram ointment Apply 1 Packet to affected area two (2) timesa day. Indications: minor skin infection due to bacteria, facial scabsQty: 20 Packet, Refills: 0STOP taking these medications multivitamin (ONE A DAY) tablet Comments:Reason for Stopping:Activity: B edrestDiet: PEG feeding at 40 ml /hr, have nutrition consult, pulmocare or equivale ntDischarge to: [facility]Follow[facility]: Follow up with dr whitt/ john. Christos Lopez MDKarmanos [facility] 2018 Name Value Range Interpretation Code Description Data Harriett rce(s) Supporting Document(s ) ID Date Data Source [id number] 02/12/2019 09:09:55 AM EDT [facility] Name Value Range Interpretation Description Data Sup porting Code Source(s) Document(s ) pH of Arterial 7.47 7.35-7.4 Above high normal [facility] - Good blood 5 [facility] Carbon dioxide 49 mmHg 32-48 Above high normal [facility] - Good [Partial Taoist pressure] in Hospital Arterial blood Oxygen 64 mmHg 83-108 Below low normal [facility] - Good [Partial Taoist pressure] in Hospital Arterial blood Carbon 37 19-24 Above high normal [facility] - Good dioxide, total mmol/L Taoist [Moles/volume] Hospital in Arterial blood Bicarbonate 36 21-28 Above high normal [facility] - Go od [Moles/volume] mmol/L Taoist in Arterial Hospital blood Oxygen 94 % 94-98 [facility] - Good saturation in Taoist Blood [facility] Base excess in 10.4 0-3 Above high normal [facility] - Good Arterial blood mmol/L Taoist by calculation Hospital Body site [facility] - Good [facility] Arterial [facility] - Good patency Wrist Taoist artery --pre Hospital arterial puncture Oxygen gas [facility] - Good flow Oxygen Taoist delivery [facility] system Oxygen/Inspire 21.0 % [facility] - Good d gas Taoist Respiratory [facility] system --on ventilator Service 95432 [facility] - Good comment [facility] ID Date Data Source [id number] 02/12/2019 07:45:37 AM EDT [facility] CHEST one viewHISTORY: Followup lung pat hology.Comparison is made to previous studies.Accounting for differences in te chnique there has been no significant change of right basal infiltrate/effusion. Ther e is a poor inspiratory effort and patientrotation towards the right.No oth er interval change is noted. Name Value Range Interpretation Description Data Sup porting Code Source(s) Document(s ) IMP IMPRESSION: No [facility] - Good significant Taoist change. Hospital Signing date/time: 02/12/2019 7:45 AMS igned by: LIONEL LOCKHART ID Date Data Source [id number] 02/12/2019 07:31:46 AM EDT [facility] Bedside and Verbal shift change report g ellynen to Dorothea Delacruz RN (oncoming nurse)by German Rocha RN. Report included the following information SBAR, ProcedureSummary, Intake/Output, MAR, Recent Results and C ardiac Rhythm . ' Name Value Range Interpretation Code Description Data Harriett rce(s) Supporting Document(s ) ID Date Data Source [id number] 02/12/2019 07:30:59 AM EDT [facility]moc[facility] rate change from 45 to 55ml/Hr Name Value Range Interpretation Code Description Data Harriett rce(s) Supporting Document(s ) ID Date Data Source [id number] 02/12/2019 05:54:01 AM EDT [facility] Name Value Range Interpretation Description Data Sup porting Code Source(s) Document(s ) Sodium 137 136-145 [facility] - Good [Moles/volume] mmol/L Taoist in Serum or Hospital Plasma Potassium 4.0 3.5-5.1 [facility] - Good [Moles/volume] mmol/L Taoist in Serum or Hospital Plasma Chloride 99 98-107 [facility] - Good [Moles/volume] mmol/L Taoist in Serum or Hospital Plasma Carbon 35 21-32 Above high normal [facility] - Good dioxide, total mmol/L Taoist [Moles/volume] Hospital in Serum or Plasma Anion gap in 7 mmol/L 10-20 Below low normal [facility] - Go od Serum or Taoist Plasma Hospital Glucose 114 74-106 Above high normal [facility] - Good [Mass/volume] mg/dL Taoist in Serum or Hospital Plasma Urea nitrogen 13 mg/dL 7-18 [facility] - Good [Mass/volume] Taoist in Serum or Hospital Plasma Creatinine 0.32 0.70-1.3 Below low normal [facility] - Good [Mass/volume] mg/dL 0 Taoist in Serum or Hospital Plasma Glomerular >60 [facility] - Good filtration Taoist rate/1.73 sq M Hospital predicted among blacks [Volume Rate/Area] in Serum or Plasma by Creatinine-bas ed formula (MDRD) Glomerular >60 [facility] - Good filtration Taoist rate/1.73 sq M Hospital predicted among non-blacks [Volume Rate/Area] in Serum or Plasma by Creatinine-bas ed formula (MDRD) Calcium 9.0 8.5-10.1 [facility] - Good [Mass/volume] mg/dL Taoist in Serum or Hospital Plasma ID Date Data Source [id number] 02/12/2019 05:54:01 AM EDT [facility] Name Value Range Interpretation Description Data Sup porting Code Source(s) Document(s ) Magnesium 2.0 mg/dL 1.6-2.6 [facility] - Good [Mass/volume] Taoist in Serum or Hospital Plasma ID Date Data Source [id number] 02/12/2019 05:49:41 AM EDT [facility] - [facility] Name Value Range Interpretation Description Data Sup porting Code Source(s) Document(s ) Leukocytes 6.9 K/uL 4.8-10.6 [facility] - [#/volume] in Good Blood by Taoist Automated count Hospital Erythrocytes 3.80 4.70-6.0 Below low normal [facility] - [#/volume] in M/uL 0 Good Blood by [facility] Hemoglobin 12.3 14.0-18. Below low normal [facility] - [Mass/volume] in g/dL 0 Good Blood [facility] Hematocrit 37.4 % 42.0-52. Below low normal [facility] - [Volume 0 Good Fraction] of Taoist Blood by Hospital Automated count Erythrocyte mean 98.4 FL 81.0-94. Above high normal [facility] - corpuscular 0 Good volume [Entitic Taoist volume] by Hospital Automated count Erythrocyte mean 32.4 PG 27.0-35. [facility] - corpuscular 0 Good hemoglobin Taoist [Entitic mass] Hospital by Automated count Erythrocyte mean 32.9 30.7-37. [facility] - corpuscular g/dL 3 Good hemoglobin Taoist concentration [facility] [Mass/volume] by Automated count Erythrocyte 15.4 % 11.5-14. Above high normal [facility] - distribution 0 Good width [Ratio] by Taoist Automated count [facility] Platelets 314 K/uL 130-400 [facility] - [#/volume] in Good Blood by [facility] Platelet mean 9.6 FL 9.2-11.8 [facility] - volume [Entitic Good volume] in Blood Taoist by Automated Hospital count Segmented 71 % 48.0-72. [facility] - neutrophils/100 0 Good leukocytes in [facility] Lymphocytes/100 22 % 18.0-40. [facility] - leukocytes in 0 [facility] Monocytes/100 7 % 2.0-12.0 [facility] - leukocytes in [facility] Eosinophils/100 0 % 0.0-7.0 [facility] - leukocytes in [facility] Basophils/100 0 % 0.0-3.0 [facility] - leukocytes in [facility] Segmented 4.9 K/UL 1.5-6.6 [facility] - neutrophils Good [#/volume] in [facility] Lymphocytes 1.5 K/UL 1.5-3.5 [facility] - [#/volume] in [facility] Monocytes 0.5 K/UL 0.0-1.0 [facility] - [#/volume] in [facility] Eosinophils 0.0 K/UL 0.0-0.7 [facility] - [#/volume] in [facility] Basophils 0.0 K/UL 0.0-0.1 [facility] - [#/volume] in [facility] Differential [facility] - cell count [facility] method [facility] Immature 1 % 0.0-2.0 [facility] - granulocytes/100 [facility] leukocytes in [facility] by Hospital Automated count ID Date Data Source [id number] 02/12/2019 03:10:12 AM EDT [facility] - [facility] Problem: Falls - Risk ofGoal: *Absence o f FallsDescriptionDocument Samra Fall Risk and appropriate interventions in the jhon wsheet.Outcome: Progressing Towards GoalNote:Fall Risk Interventions:Mentati on Interventions: Door open when patient unattendedMedication Interventions: Bed/ chair exit alarmElimination Interventions: Call light in reachProblem: Pressure Inj ury - Risk ofGoal: *Prevention of pressure injuryDescriptionDocument Butch Scale a nd appropriate interventions in the flowsheet.Outcome: Progressing Towards G oalNote:Pressure Injury Interventions:Sensory Interventions: Assess changes in LOCMois ture Interventions: Absorbent underpadsActivity Interventions: Pressur e redistribution bed/mattress(bed type)Mobility Interventions: PT/OT evalu ationNutrition Interventions: Document food/fluid/supplement intakeFriction and Shear Interventions: Apply protective barrier, creams andemollients, Lift shee tProblem: Tissue Perfusion - Cardiopulmonary, AlteredGoal: *Optimize tissue perfusionO utcome: Progressing Towards GoalProblem: Impaired Skin Integrity/Pressure Injury TreatmentGoal: *Improvement of Existing Pressure InjuryOutcome: Progressing [place] rds Goal Name Value Range Interpretation Code Description Data Harriett rce(s) Supporting Document(s ) ID Date Data Source [id number] 02/11/2019 08:27:21 PM EDT [facility] Name Value Range Interpretation Description Data Sup porting Code Source(s) Document(s ) Glucose 96 MG/DL 65-110 [facility] [Mass/volume] Taoist in Blood by Hospital Automated test strip ID Date Data Source [id number] 02/11/2019 07:32:13 PM EDT [facility] Bedside and Verbal shift change report g iven to German Cordero RN (oncomingnurse) by Reny Galeas RN(offgoing nurse). Repor t given with SBAR, Kardex, Intake/Output, MAR and RecentResults. Name Value Range Interpretation Code Description Data [facility] rce(s) Supporting Document(s ) ID Date Data Source [id number] 02/11/2019 05:27:57 PM EDT [facility] Progress NoteMID-[facility] ,[facility].Krystian Monae MD., F.C.C.P.Stella Hamilton MD., F.C.C.P. [address] [place] [id number] [place] [address] [phone]: Evelio Carlin Sex: male DOA: 02/08/2019D ate of : 1950 Age: 68 y.o. LOS: LOS: 3 daysSubjective:HE IS MORE AWAKE TODAY , LOOKS AT THE EXAMINER ..HISTORY OF PRESENT ILLNESS: The patie nt is a 68-year-old severely mentallyretardedpatient who was transfer red back from the long-term with marked lethargy,fever,cough, and unresponsivene ss. The patient has a history of congenital mentalretardation, cerebral palsy, aspir ation pneumoniae, diaphragmatic hernia. Hehasmultiple admissions from last two t o three months. During his previousadmission, hewas unable to eat a nd a PEG tube was inserted. He also had bilateral pneumoniaatthat time and was t reated with the Antibiotics This admission is attributed again to the increased let hargy and short ofbreath. Nohistory can be obtained from the patient as he is almos t non-communicative andbedridden with a contracted body. PAST MEDICAL HISTORY:1. Chronic obstructive pulmonary disease.2. Diaphragmatic hernia without obstruction and without gangrene.3. GERD.4. Hyperparathyroidism.5. Mental retardati on.6. Parkinsonism due to drug.7. Multiple aspiration pneumoniae.8. Psychiatric di sorder, depression.9. Schizophrenia.10. Pulmonary embolism. Objective:Vital Sign s:Patient Vitals for the past 24 hrs: BP Temp Pulse Resp SpO2 Iwjjzs82/30/19 1529 111/ 79 97.9 F (36.6 C) 89 18 93 % -02/11/19 1047 137/87 98 F (36.7 C) 78 20 98 % - 02/11/19 0815 - - - - 98 % -02/11/19 0719 143/88 98.4 F (36.9 C) 88 20 90 % - 0557 - - - - - 61.2 kg (135 lb)02/11/19 0348 (!) 152/94 97.4 F (36.3 C) 76 18 94 % -02/10/19 2337 150/86 97.9 F (36.6 C) 78 18 92 % -02/10/19 2037 132/80 98 F ( 36.7 C) 79 18 94 % -02/10/192029 - - - - 94 % -02/10/192015 - - - - 91 % -Pulse OX: SpO2 Readings from Last 6 Encounters:02/11/19 93%01/24/19 93%12/30/18 96%11/27/18 91%0 09/26/15 96%@LASTSAO2(6)@Physical Exam:MORE AWAKE ,LOOKS AT THE EXAMINER . General: Alert, cooperative, RESPIRATORY Distress IS LESS , appearsstated age. Head: Normocephalic, without obvious abnormality, atraumatic. Eyes: Conjunctivae/corneas clear. PERRL, EOMs intact. Nose: N dada normal. No drainage or sinus tenderness Throat: Lips, mucosa, and tongu e normal Neck: Supple, symmetrical, trachea midline, no adenopa thy,thyroid: no enlargement/tenderness/nodules, no carot id bruit and no JVD. Lungs: IMPROVED AIR EXCHANGE , WHEEZING AND RHONCHI ARE LESS .RALES ARE LESS AT BASES to auscultation bilaterally. Chest Wall : No tenderness or deformity. Heart: Regular rate and rhythm, S1, S2 normal, no murmur, click,rub or gallop. Abdomen: Soft, non-tender. Bowel soun ds normal. No masses, No organomegaly. Extremities: Extremities normal, atrau matic, no cyanosis or edema. Pulses: 4+ bilaterally. Skin: Ski n color, texture, turgor normal. No rashes or lesions. Neurologic: CNII-XII intact. No focal motor or sensory deficit.Intake and Output:Last three shifts: 02/09 1901 - 02/11 0700In: 4286.7 [I.V.:3766.7]Out: -Lab Results:Recent Results (from the past 24 hour(s))GLUCOSE, POC Collection Time: 02/10/19 8:45 PMResult Value Ref Range Glucose, bedside 89 65 - 110 MG/DLCBC W/O DIFF Collection Time: 02/11/19 4:05 AMR esult Value Ref Range WBC 10.9 (H) 4.8 - 10.6 K/uL RBC 3.58 (L) 4.70 - 6.00 M/uL HGB 1 1.5 (L) 14.0 - 18.0 g/dL HCT 35.8 (L) 42.0 - 52.0 % MCV 100.0 (H) 81.0 - 94.0 FL MCH 32.1 27.0 - 35.0 PG MCHC 32.1 30.7 - 37.3 g/dL RDW 15.6 (H) 11.5 - 14.0 % PLATELET 330 130 - 400 K/uL MPV 9.3 9.2 - 11.8 FLMAGNESIUM Collection Time: 02/11/19 4 :05 AMResult Value Ref Range Magnesium 1.7 1.6 - 2.6 mg/dLMETABOLIC PANEL, BASIC Co llection Time: 02/11/19 4:05 AMResult Value Ref Range Sodium 135 (L) 136 - 145 mmol/ L Potassium 4.1 3.5 - 5.1 mmol/L Chloride 97 (L) 98 - 107 mmol/L CO2 36 (H) 21 - 32 m mol/L Anion gap 6 (L) 10 - 20 mmol/L Glucose 96 74 - 106 mg/dL BUN 16 7 - 18 mg/dL Cr eatinine 0.33 (L) 0.70 - 1.30 mg/dL GFR est AA >60 >60 ml/min/1.73m2 GFR est non-AA >60 >60 ml/min/1.73m2 Calcium 8.8 8.5 - 10.1 mg/dLGLUCOSE, POC Collection Time: 02/11 7:21 AMResult Value Ref Range Glucose, bedside 98 65 - 110 MG/DLGLUCOSE, POC Co llection Time: 02/11/19 11:40 AMResult Value Ref Range Glucose, bedside 98 65 - 110 M G/DLGLUCOSE, POC Collection Time: 02/11/19 4:42 PMResult Value Ref Range Glucose, b edside 112 (H) 65 - 110 MG/DLABG:Recent Labs 414PH 7.42PCO2 55*PO2 59*HCO3 3 6*Recent Glucose Results:Lab ResultsComponent Value Date/Time GLU 96 02/11/2019 04:05 AM GLUCPOC 112 (H) 02/11/2019 04:42 PM GLUCPOC 98 02/11/2019 11:40 AM GLUCPOC 9 8 02/11/2019 07:21 AM@[email or web address]@CULTURESAll M icro Results Procedure Component Value Units Date/Time CULTURE, BLOOD [[id number]] Col lected: 02/08/191699 Order Status: Completed Specimen: Blood Updated: 628 Special Requests: NO SPECIAL REQUESTS Culture result: NO GROWTH 3 DA YS CULTURE, BLOOD [[id number]] Collected: 02/08/191718 Order Status: Completed S pecimen: Blood Updated: 02/11/19628 Special Requests: NO SPECIAL REQUESTS C ulture result: NO GROWTH 3 DAYS LEGIONELLA PNEUMOPHILA AG, URINE [[id number]] [facility] mikel: 02/08/19 2330 Order Status: Completed Specimen: Urine Updated: 02/09/19 1035 Legionella Ag, urine NEGATIVE Comment:PRESUMPTIVE NEGATIVE forL.pneumo phila Serogroup 1Antigen in urine,suggestingno recent or current inf ection.Infection due to Legionellacannot be ruled out since otherserogroups and spec ies may causedisease,antigen may not bepresent in urine in earlyinfection, an d the level ofantigen present in the urinemay be below the detectionlimit of the test. Method IMMUNOCHROMATOGRAPHIC MEMBRANE ASSAY CULTURE, RESPIRATORY/SPUTUM/BRONCH W GRAM STAIN [[id number]] Order Status: Sent Specimen: SputumImages:@[email or web address]@Xr Chest Sngl VResult Date: 02/09/2019AP portable film of the chest clinical vi cation pneumonia Study is compared toprevious examination of February 08, 2019. Again n oted is cardiac enlargement curtis limited inspiration. There has been partial sudhakar ring of right mid lungdensities. Again noted is an old fracture of the left clavicleI MPRESSION: Partial clearing right lung densities otherwise little changeCt Ches t W Cont F/uResult Date: 01/15/2019CT CHEST W CONT F/U Clinical data: R U L NODULE N EAR TRACHEA / BLOOD VESSEL.Priors: 01/10/2019. Technique: CT scan of the [facility] st was performed from thethoracic inlet to below the diaphragm following administra tion of intravenouscontrast. The acquisition data was reviewed in the axial, sagittal and coronalplane. 100 cc of low osmolar iodinated contrast-isovue 300 was inject edintravenously for the examination. Utilizing silver holloware assembler algorithm theexam ination was performed to optimize imaging quality by utilizing the lowestpossible radiation dose. Findings: There is no evidence of pathologicallymphadenopathy within the mediastinum, bilateral hilar and bilateral axillarylocation. There is no evidence of a central endobronchial or an endotrachealmass. Previously seen nodule along the right lateral wall of the trachea nolonger visualized. This may have repr esented a mucus lung which has dislodged.Coronary artery calcifications noted. Atherosclerotic thoracic aorta withoutaneurysmal dilatation. Elevated l eft hemidiaphragm. There is a small leftpleural effusion with underlying pas sive atelectatic changes similar to priorstudy. Improved previously seen ri ght lower lobe lung infiltrate. There isassociated small right pleural effusio n similar to prior examination. No newlung pathology is observed. Included upper ab dominal organs: No significantpathology is observed within the visualized upper abd ominal organs.IMPRESSION: 1. Previously seen tracheal nodule is no longer visualized. 2.Small left pleural effusion with underlying passive atelectatic changes s imilarto prior study. Stable elevation of the left hemidiaphragm. 3. Stable small right pleural effusion. Interval improvement in the right lower lobe lunginfiltrate. No new lung findings seen.Xr Chest PortResult Date: 02/08/2019XR CHEST PORT Clinical data: Sepsis Priors: 01/21/2019. Findings: The heart sizeis unchanged. L imited inspiration with right basilar lung opacities which canbe due to pneumonia. Slightly elevated left hemidiaphragm with left basilaratelectasis. No evidence of CHF or large pleural effusion. Patient's downwardpointing chain obscures the righ t lung apex. There is an old healed leftclavicle fracture.IMPRESSION: Right lower lobe parenchymal opacities which can be due topneumonia. Left basilar atelectat ic changes in the juxtadiaphragmatic location.Limited inspiration compromises evaluation.Xr Chest PortResult Date: 01/21/2019Referring Physician: MONICA HOLLEY Patient Name: EVELIO CARLIN THIS IS AFINAL REPORT FROM [facility] DATE OF SERVICE: 2019-01-21 22:23:43 IMAGES: 1EXAM: XY CHEST PORTABLE HISTORY: Rule o ut sepsis COMPARISON: Chest x-ray 01/17/19FINDINGS: The patient is rotated and obliquely positioned There is no airspaceconsolidation. No pneumothorax. Persistent small bilateral pleural effusions Thecardiac silhouette appears grossly st able. Limited assessment secondary topositioning and partially obscured hea rt borders The bones are demineralized.Limited visualization of t he thoracic spineIMPRESSION: Persistent small bilateral pleural effusions No radiograp hicevidence of acute airspace process THIS DOCUMENT HAS BEEN ELECTRONICALLY SIGNEDJ cecelia Cole MD 01/21/2019 22:46 GINA Verde Please call Imaging On [phone].[phone] ([phone]) with questions. This report was electronically signedby: Noel Cole MD 01/21/2019 10:48 PMXr Chest PortResult Date: 01/17/2019Portable chest x-ray. PRIOR EXAM: X-ray 01/10/2019 HISTORY: Hypoxia FINDINGS: Theheart is n ormal in size. The mediastinum and pulmonary vessels are unremarkable.There is no acu te infiltrate. The bony structures are intact.IMPRESSION: No acute pulmonary di sease. There is very limited visualization ofthe right lung due to patient position ing.Duplex Upper Ext Venous LeftResult Date: 02/10/2019LEFT UPPER EXTREMITY DOPPLER H istory: DVT. High-resolution linear sonography ofthe left upper extremity wa s performed using Color Doppler Flow and DuplexDoppler Spectral sonography. There is no evidence of a deep vein thrombosis. Thecephalic vein could not be visualized . The left internal jugular, subclavian,axillary, brachial and basili c veins are patent and completely compressible.Spontaneous and phasic flow is noted.IMPRESSION: No evidence of deep vein thrombosis.Duplex Lower Ext Venous BilatResult Date: 02/10/2019RIGHT and LEFT LOWER EXTREMITY VENOUS DOPPLER STUDIES: Right and Left lowerextremity venous spectral Doppler studies are performed using Berthoud r Doppler Flowand enhanced Duplex Spectral technique. History: Pain and swelling. T here is noevidence of deep venous thrombosis present. There is normal compressibilit y,augmentation and phasicity from common femoral vein through popliteal vein. .Th e anterior tibial and peroneal veins are not visualized. The posterior tibialveins of the calf are patent.IMPRESSION: No evidence of lower extremity deep venous thrombosi s bilaterally.Limited calf evaluation.Medications:Current Facility- Administered MedicationsMedication Dose Route Frequency methylPREDNISolone (PF) (Solu -MEDROL) injection 40 mg 40 mg IntraVENous Q12H budesonide (PULMICORT) 500 mcg/2 m l nebulizer suspension 500 mcg NebulizationBID RT albuterol-ipratropiu m (DUO-NEB) 2.5 MG-0.5 MG/3 ML 3 mL Nebulization Q6H RT acetylcysteine (MUC OMYST) 100 mg/mL (10 %) nebulizer solution 400 mg 4 mLNebulization TID RT sodium chloride (NS) flush 5-10 mL 5-10 mL IntraVENous PRN cinacalcet (SENSIPAR) t ablet 60 mg 60 mg Oral DAILY ALPRAZolam (XANAX) tablet 0.25 mg 0.25 mg Per G Tu be QID PRN lamoTRIgine (LaMICtal) tablet 50 mg 50 mg Per G Tube BID multivitamin ( ONE A DAY) tablet 1 Tab 1 Tab Per G Tube DAILY valproic acid (as sodium salt) (D EPAKENE) 250 mg/5 mL (5 mL) oral solution 750mg 750 mg Oral Q12H sodium chloride (NS) flush 5-40 mL 5-40 mL IntraVENous Q8H sodium chloride (NS) flush 5-40 mL 5-40 mL IntraVENous PRN acetaminophen (TYLENOL) tablet 650 mg 650 mg Oral Q4H PRN hepa rin (porcine) injection 5,000 Units 5,000 Units SubCUTAneous Q12H 0.9% sodium chl oride infusion 100 mL/hr IntraVENous CONTINUOUS pantoprazole (PROTONIX) gran ules for oral suspension 40 mg 40 mg Per NG tubeACB ondansetron (ZOFRAN) injection 4 mg 4 mg IntraVENous Q6H PRN cefepime (MAXIPIME) 2 g in 0.9% sodium chloride ( MBP/ADV) 100 mL MBP 2 gIntraVENous Q8H insulin lispro (HUMALOG) injection Sub CUTAneous AC&HS dextrose 40% (GLUTOSE) oral gel 1 Tube 15 g Oral PRN glucagon (GLU CAGEN) injection 1 mg 1 mg SubCUTAneous PRN dextrose (D50) infusion 25 g 50 mL Intr aVENous PRNActive Problems: SOB (shortness of breath) (02/08/2019) Pressure injury of right heel, stage 2 (HCC) (02/09/2019) Leg wound, right, initial encounter ()Assessment:1. Acute hypercapnic and hypoxic respiratory failure.2. Sepsis.3 . Pneumonia, right middle lobe, right lower lobe.CLINICALLY IMPROVING4. Atelectasis of the right lower lobe.5. Acute chronic obstructive pulmonary disease.6. Mental retardation.7. Metabolic encephalopathy.IMPROVING PLAN:1. Legion conrad antigen is negative.2. Follow up culture blood, urine, and sputum.3. Duo Neb nebulizer q.4 hourly.4. Budesonide 500 mg via nebulizer b.i.d.5. Mucomyst 10% 4 mL via nebulizer three times a day.6. Chest PT to clear right lower lobe atele ctasis.7. Frequent nasotracheal suction to clear airways.8. Continue oxygen 4 L na earl cannula, keep saturation more than 92%.9. Insulin for diabetes mellitus.10. Anti biotics, cefepime 2 g IV soluset q.8 hourly.11. DVT prophylaxis with heparin 5000 units q.12 hourly.12. Protonix 40 mg via PEG daily. 13 CHEST XRAY , ABG , CBCB , BMP ORDERED FOR Ramon Monae MD F.C.C.P.February 11, 20195:21 PM Name Value Range Interpretation Code Description Data Harriett rce(s) Supporting Document(s ) ID Date Data Source [id number] 02/11/2019 05:21:04 PM EDT [facility] [place] [address] [place], [place] [address]AZUCLAW: EVELIO CARLINMRN: [id number]: 1ACCT#: [id number] DATE: 02/08/2019 CONSULTATIONCONSULT DATE: 02/09/2019HISTORY OF PRESENT ILLNESS: T he patient is a 68-year-old severely mentallyretardedpatient who was transfer red back from the long-term with marked lethargy,fever,cough, and unresponsivene ss. The patient has a history of congenital mentalretardation, cerebral palsy, aspir ation pneumoniae, diaphragmatic hernia. Hehasmultiple admissions from last two t o three months. During his previousadmission, hewas unable to eat a nd a PEG tube was inserted. He also had bilateral pneumoniaatthat time and was t reated with the BiPAP for a long time.This admission is attributed again to the inc reased lethargy and short ofbreath. Nohistory can be obtained from the patie nt as he is almost non-communicative andbedridden with a contracted body.PAST MEDICAL HISTORY:1. Chronic obstructive pulmonary disease.2. 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 GERD.4. Hyperparathyroidis m.5. Mental retardation.6. Parkinsonism due to drug.7. Multiple aspiration pneumoni ae.8. Psychiatric disorder, depression.9. Schizophrenia.10. Pulmonary embolism.DAYANARA LUCERO SURGICAL HISTORY: History of gastrostomy, PEG placed on 12/02/2018.SOCIAL HISTORY: No history of smoking. No history of alcohol abuse.FAMILY HISTORY: His other family members are essentially normal.REVIEW OF SYSTEMS: The patient is basically un responsive and very lethargic,therefore no review of systems can be done.PHYSICAL E XAMINATION:GENERAL: The patient is very lethargic, unresponsive, he is more obtu nded thanhisprevious admission.VITAL SIGNS: His initial respiratory rate was 31, now has come down to 21,bloodpressure is 109/57. Initial temperature was 99 degrees, but now is 97.2. Hissaturation is 94% on nasal cannula 4 L. The patient is unresponsiv e. Nohistory orany complaint can be asked from the patient. He is very lethargic, but stillmildlytachypneic.NECK: Supple. JVP negative. No adenopathy.CHEST: Ant erior-posterior diameter is normal. Breath sounds are significantlydecreased in the right lower half of the chest with dullness present and ralesarepresent in right low er lobe more than the left lower lobe. End-expiratorywheezing1+, rhonchi 1+ elroy aterally. Air exchange is significantly decreasedbilaterally, butespecially dull ness in the right base.CARDIOVASCULAR: PMI in the sixth left intercostal space. S1 normal, S2 normal.Ejection systolic murmur grade I/, left parasternal border. S3 gallop isnegative.S4 gallop is negative.ABDOMEN: Soft. Bowel sounds a re present. PEG tube is in place.EXTREMITIES: Contracted.LABORATOR Y DATA: Chest x-ray is reviewed. The patient has a pneumonia, rightlowerlobe and right middle lobe, with some volume loss on the right side. Themediastinumis sli ghtly shifted to the right. There is some volume loss of the right lowerlobe.EKG s hows ventricular rate of 97. QT interval is 333 milliseconds. Urinalysisisessential ly normal. Lactate is 32.2, sodium is 130, potassium 4.6, chloride is91,CO2 of 39, anion gap is 5, glucose is 115, BUN is 10, creatinine 0.46. LFTs areessentially no rmal. WBC count is 24.1, hemoglobin 13.2, hematocrit 40.8.Plateletcount is 367. P hosphorus 2.8, TSH is 1.1, and lactic acid 3.8.DIAGNOSES:1. Acute hypercapnic and hypoxic respiratory failure.2. Sepsis.3. Pneumonia, right middle lobe, right lowe r lobe.4. Atelectasis of the right lower lobe.5. Acute chronic obstructive pulmo nary disease.6. Mental retardation.7. Metabolic encephalopathy.PLAN:1. Legion conrad antigen is negative.2. Follow up culture blood, urine, and sputum.3. Duo Neb nebulizer q.4 hourly.4. Budesonide 500 mg via nebulizer b.i.d.5. Mucomyst 10% 4 mL via nebulizer three times a day.6. Chest PT to clear right lower lobe atele ctasis.7. Frequent nasotracheal suction to clear airways.8. Continue oxygen 4 L na earl cannula, keep saturation more than 92%.9. Insulin for diabetes mellitus.10. Anti biotics, cefepime 2 g IV soluset q.8 hourly.11. DVT prophylaxis with heparin 5000 units q.12 hourly.12. Protonix 40 mg via PEG daily.The overall prognosis of t his patient is severely guarded, as the patientprobablyhas recurrent aspirations and his frequency of admissions is increasing. Wewillfollow the patient wi th you. ROSEMARY KNIGHTD: 02/09/2019 12:09:19 /SHOSHANA [email or web address] #: [id number] / [id number]: Krystian Monae MD Name Value Range Interpretation Code Description Data Harriett rce(s) Supporting Document(s ) ID Date Data Source [id number] 02/11/2019 04:53:34 PM EDT [facility] Name Value Range Interpretation Description Data Sup porting Code Source(s) Document(s ) Glucose 112 MG/DL 65-110 Above high normal [facility] [Mass/volume] [facility] in Blood by Hospital Automated test strip ID Date Data Source [id number] 02/11/2019 03:20:22 PM EDT [facility] ID Progress Note02/11/2019Subjective:Pat ient with MR non verbal,unable to provide history.AfebrileWbc trending down.Object britni:Vitals:Patient Vitals for the past 24 hrs: BP Temp Pulse Resp SpO2 Hhuqsc7702/11 1047 137/87 98 F (36.7 C) 78 20 98 % -02/11/19 0815 - - - - 98 % -02/11/19 07 19 143/88 98.4 F (36.9 C) 88 20 90 % -02/11/19 0557 - - - - - 61.2 kg (135 lb )02/11/19 0348 (!) 152/94 97.4 F (36.3 C) 76 18 94 % -02/10/19 2337 150/86 97.9 F (36.6 C) 78 18 92 % -02/10/19 2037 132/80 98 F (36.7 C) 79 18 94 % -02/10/19 203 0 - - - - 94 % -02/10/192015 - - - - 91 % -Tmax: Temp (24hrs), Av.9 F (36.6 C), Min:97.4 F (36.3 C), Max:98.4 F(36.9 C)Physical Exam:General: Awake non vera bl cooperative, no distressEyes: Conjunctivae/corneas clear. PERRLNeck: S upple, symmetrical, trachea midline, no adenopathyLungs: Bilateral breath soun ds with basal crackles..Heart: Regular rate and rhythm, S1, S2 normal, no murmurAbdo men: Soft, non-tender. Bowel sounds normal. No masses, No organomegaly.+peg+Back: No CVA tenderness.Extremities: No cyanosis,chronic lymphedemaPulses: 2+ an d symmetric all extremities.Skin: Skin color, texture, turgor normal. No rashes or les ionsCurrent Facility-Administered MedicationsMedication Dose Route Frequen cy methylPREDNISolone (PF) (Solu-MEDROL) injection 40 mg 40 mg IntraVENous Q12H budesonide (PULMICORT) 500 mcg/2 ml nebulizer suspension 500 mcg Nebulizati onBID RT albuterol-ipratropium (DUO- NEB) 2.5 MG-0.5 MG/3 ML 3 mL Nebulization Q6H RT acetylcysteine (MUCOMYST) 100 mg/mL (10 %) nebulizer solution 400 mg 4 mLNebulizat ion TID RT sodium chloride (NS) flush 5-10 mL 5-10 mL IntraVENous PRN cinacalcet (SENSIPAR) tablet 60 mg 60 mg Oral DAILY ALPRAZolam (XANAX) tablet 0.25 mg 0.25 mg Per G Tube QID PRN lamoTRIgine (LaMICtal) tablet 50 mg 50 mg Per G Tube BID mult ivitamin (ONE A DAY) tablet 1 Tab 1 Tab Per G Tube DAILY valproic acid (as sodium s alt) (DEPAKENE) 250 mg/5 mL (5 mL) oral solution 750mg 750 mg Oral Q12H sodium chloride (NS) flush 5-40 mL 5-40 mL IntraVENous Q8H sodium chloride (NS) fl ush 5-40 mL 5-40 mL IntraVENous PRN acetaminophen (TYLENOL) tablet 650 mg 6 50 mg Oral Q4H PRN heparin (porcine) injection 5,000 Units 5,000 Units SubCU TAneous Q12H 0.9% sodium chloride infusion 100 mL/hr IntraVENous CONTINUOUS pantop razole (PROTONIX) granules for oral suspension 40 mg 40 mg Per NG tubeACB ondansetron (ZOFRAN) injection 4 mg 4 mg IntraVENous Q6H PRN cefepime (MAXIPIME) 2 g in 0.9% sodium chloride (MBP/ADV) 100 mL MBP 2 gIntraVENous Q8H insulin lispro (HUMALOG) injection SubCUTAneous AC&HS dextrose 40% (GLUTOSE) oral gel 1 Tube 15 g Oral PRN glucagon (GLUCAGEN) injection 1 mg 1 mg SubCUTAneous PRN dextrose (D 50) infusion 25 g 50 mL IntraVENous PRNLabs:Recent Labs 02/10/1904WBC 10.9* 8.8 14.5* 24.1*HGB 11.5* 10.7* 10.4* 13.2*PL T 330 287 282 365BUN 16 19* 12 10CREA 0.33* 0.38* 0.34* 0.49*SGOT -- 13* 13* 19AP -- 71 65 85TBILI -- 0.2 0.2 0.3Cultures:Lab ResultsComponent Value D ate/Time Culture result: NO GROWTH 3 DAYS 02/08/2019 05:19 PM Culture result: NO G ROWTH 3 DAYS 02/08/2019 05:00 PM Culture result: NO GROWTH 5 DAYS 01/21/2019 11:3 0 PMRadiology:Duplex Upper Ext Venous LeftResult Date: 02/10/2019LEFT UPPER EX TREMITY DOPPLER History: DVT. High-resolution linear sonography ofthe left upper extre mity was performed using Color Doppler Flow and DuplexDoppler Spectral sonography. T here is no evidence of a deep vein thrombosis. Thecephalic vein could not b e visualized. The left internal jugular, subclavian,axillary, brachial and basili c veins are patent and completely compressible.Spontaneous and phasic flow is noted.IMPRESSION: No evidence of deep vein thrombosis.Duplex Lower Ext Venous BilatResult Date: 02/10/2019RIGHT and LEFT LOWER EXTREMITY VENOUS DOPPLER STUDIES: Right and Left lowerextremity venous spectral Doppler studies are performed using Berthoud r Doppler Flowand enhanced Duplex Spectral technique. History: Pain and swelling. T here is noevidence of deep venous thrombosis present. There is normal compressibilit y,augmentation and phasicity from common femoral vein through popliteal vein. .Th e anterior tibial and peroneal veins are not visualized. The posterior tibialveins of the calf are patent.IMPRESSION: No evidence of lower extremity deep venous thrombosi s bilaterally.Limited calf evaluation.Assessment: Aspiration pneum onia Acute COPD exacerbation. Acute respiratory failure with hypoxia. Dysph agia Atelectasis Plan:1. Continue IV cefepime2. Follow cultures.Natasha Dudley MDOctober 20183:19 PM Name Value Range Interpretation Code Description Data Harriett rce(s) Supporting Document(s ) ID Date Data Source [id number] 02/11/2019 02:16:05 PM EDT [facility] Patient non-verbal. Spoke with patients nephroscoe Abrams @ [phone]. Sandro isdecision maker. We discussed patients condition,q uality of life and code status.Sandro states he has never had a discussion regarding cod e status before. Iexplained intubation and or cardiac resuscitation. He will speak to the rest ofhis family regarding this matter. He has Palliative care contact info, feliberto rodriguez. Name Value Range Interpretation Code Description Data Harriett rce(s) Supporting Document(s ) ID Date Data Source [id number] 02/11/2019 11:55:10 AM EDT [facility] Name Value Range Interpretation Description Data Sup porting Code Source(s) Document(s ) Glucose 98 MG/DL 65-110 [facility] [Mass/volume] [facility]ist in Blood by Hospital Automated test strip ID Date Data Source [id number] 02/11/2019 08:39:09 AM EDT [facility] Progress notePatient: Evelio Carlin Sex: male DOA: 02/08/2019Date of : 1950 Age: 68 y.o. LOS: 3 daysHPI:Evelio Carlin is a 68 y.o. male who Was admitted with sob,pneumoni a.Pt is a resident of [facility],pt with h/o COPD ,GERD,PULMEMBOLISM,PNEUMONIA,HYPERPARATHYROIDISM,MENTALRETARDATION,SCHIZOPHRENIA ,PARKINSON,Pt was brought to er by EMS withsob,cough,t achypneic,+leukocytosis,hyponatremia,Cxr with Rt basilar pneumonia,Lt basilar atelectasis ,Pt was put on BD,iv fluids,iv antx,Pt seen by pulm,to continue current rxvss afebrileChest ct; 01/10/19Small bilateral pleural effusion. Right effusion is similar to prior study.Left effusion slightly decreased in size. Patchy right lung opacities which maybe due to pneumo freddy similar to previous examinations. 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) Pneumonia Psychiatric disorder schizophrenia Pulm onary emboli (HCC) Schizophrenia (HCC)Past Surgical History:Procedure Laterality Date HX GA STROSTOMY PEG- replaced 11/2018Review of Systems: [x] Unable to obtain ROS due to [x]mental s tatus change []sedated[]intubated []Total of 12 systems reviewed as follows:Constitution al: negative fever, negative chills, negative weight lossEyes: negative diplopia or visual changes, negative eye painENT: negative coryza, negative sore throatRespiratory: negati ve cough, hemoptysis, dyspneaCards: negative for chest pain, palpitations, lower extremit y edemaGI: negative for nausea, vomiting, diarrhea, and abdominal painGenitourinary: negativ e for frequency, dysuria and hematuriaIntegument: negative for rash and pruritusHematologi c: negative for easy bruising and gum/nose bleedingMusculoskel: negative for myalgi as, arthralgias, back pain and muscle weaknessNeurological: negative for head aches, dizziness, vertigo, memory problems andgait problemsBehavl/Psych: negative for feeli ngs of anxiety, depressionPertinent Positives include :History reviewed. No pertinent family h istory.Social HistorySocioeconomic History Marital status: SINGLE Spouse name: Not on file Number of children: Not on file Years of education: Not on file Highest education level: No t on fileTobacco Use Smoking status: Never Smoker Smokeless tobacco: Never UsedSubstance a nd Sexual Activity Alcohol use: No Drug use: NoOther Topics ConcernPrior to Admission medicat ionsMedication Sig Start Date End Date Taking? Authorizing Providermultivitamin (MULTI- DELYN, WELLESSE) liqd 5 mL by Per G Tube route daily. YesProvider, Historicalvalproic acid, a s sodium salt, (DEPAKENE) 250 mg/5 mL (5 mL) soln oral vcjqrugq236 mg by Per G Tube route every twelve (12) hours. Yes Provider, Historicalacetylcysteine (MUCOMYST) 100 mg/mL (10 %) nebulizer solution Take 4 mL byinhalation two (2) times a day. Yes Provider, His toricalzinc oxide 10 % topical cream Apply to affected area daily. Ribbon around GTsit e Yes Provider, Historicalomeprazole (PRILOSEC) 2 mg/mL susp 2 mg/mL oral suspension (comp ounded) 40 mg byPer G Tube route daily. Yes Provider, Historicalsilver sulfADIAZINE (SILVADENE) 1 % topical cream Apply to affected area two(2) times a day. 1 inch ribbon- right edge Yes Provider, Historicalcholestyramine-aspartame (QUES [place] LIGHT) 4 gram packet Take 1 Packet by mouthtwo (2) times a day.Patient taking different ly: 4 g two (2) times a day. Via G tube. 01/24/19 YesMili Hills DOclorazepate (TRANX SHARRON) 3.75 mg tablet 1 Tab by Per G Tube route nightly. MaxDaily Amount: 3.75 mg. 12/30/18 Yes Mili Brooks DOcinacalcet (SENSIPAR) 30 mg tablet Take 2 Tabs by mouth daily.Patient takin g differently: 60 mg daily. Via G tube 12/30/18 Yes Mili Hills DOlamoTRIgine (LAMICTAL) 25 mg tablet 2 Tabs by Per G Tube route two (2) times aday. 12/30/18 Yes Mili Hills DOal buterol-ipratropium (DUO-NEB) 2.5 mg-0.5 mg/3 ml nebu 3 mL by Nebulizationroute every six (6) hours. Every 6 hours while awake 12/30/18 Yes Mili Hills DObudesonide (PULMICORT) 0.5 mg/2 mL nbsp 2 mL by Nebulization route two (2) timesa day. 12/30/18 Yes Mili Hills DOacetaminophen (TYLENOL) 32MG/ML soln solution Take 20.3 mL by mouth every four(4) hours as needed for Pain or Fever. 01/24/19 Mili Hills DOinfluenza vaccine 2019-20, 65 yrs+,,PF , (FLUZONE HIGH-DOSE) syrg injection 0.5mL by IntraMUSCular route PRIOR TO DISCHARGE. 01/24/19 Mili Hills, bacitracin 500 unit/gram ointment Apply 1 Packet to affected area two (2) timesa day. Indications: minor skin infection due to bacteria, facial scabs 12/30/18Nel sonMili DONo Known AllergiesPhysical Exam:Visit VitalsBP 143/88 (BP 1 Location: Left arm , BP Patient Position: At rest)Pulse 88Temp 98.4 F (36.9 C)Resp 20Ht 5' 2" (1.575 m)Wt 61. 2 kg (135 lb)SpO2 90%BMI 24.69 kg/m PHYSICAL EXAM:General: Awake,eyes open,non lani bal,, appears stated age.Head: Normocephalic, without obvious abnormality, atraumatic. Eyes: Conjunctivae clear, anicteric sclerae. Pupils are equalNose: Nares normal. No drainag e or sinus tenderness.Throat: Lips, mucosa, and tongue normal. No ThrushNeck: Supple, symmetrical, no adenopathy, thyroid: non tender no carotid bruit and no JVD.Back: Symmet rodger, No CVA tenderness.Lungs: . No Wheezing + Rhonchi. No rales.Chest wall: No tender ness or deformity. No Accessory muscle use.Heart: Regular rate and rhythm, no murmur, rub or gallop.Abdomen: Soft, non-tender. Not distended. Bowel sounds normal. No massesExtremiti es: Extremities normal, atraumatic, No cyanosis. Contracted,Rt heelwound,stage 2,Rt leg w oundSkin: Texture, turgor normal. No rashes or lesions. Not JaundicedLymph nodes: Cerv ical, supraclavicular normal.Psych: Not depressed. Not anxious or agitated.Neurologic: EOMs intact. No facial asymmetry. Non verbal,contracted,Medications Reviewed:Jenn gibson Facility-Administered MedicationsMedication Dose Route Frequency methylPREDNISolone (PF) (Solu-MEDROL) injection 40 mg 40 mg IntraVENous Q12H budesonide (PULMICORT) 500 mcg/2 m l nebulizer suspension 500 mcg NebulizationBID RT albuterol-ipratropium (DUO-NEB) 2.5 MG-0 .5 MG/3 ML 3 mL Nebulization Q6H RT acetylcysteine (MUCOMYST) 100 mg/mL (10 %) nebulizer so lution 400 mg 4 mLNebulization TID RT sodium chloride (NS) flush 5-10 mL 5-10 mL Int raVENous PRN cinacalcet (SENSIPAR) tablet 60 mg 60 mg Oral DAILY ALPRAZolam (XANAX) tablet 0.25 mg 0.25 mg Per G Tube QID PRN lamoTRIgine (LaMICtal) tablet 50 mg 50 mg Per G Tub e BID multivitamin (ONE A DAY) tablet 1 Tab 1 Tab Per G Tube DAILY valproic acid (as sodi um salt) (DEPAKENE) 250 mg/5 mL (5 mL) oral solution 750mg 750 mg Oral Q12H sodium chloride (NS) flush 5-40 mL 5-40 mL IntraVENous Q8H sodium chloride (NS) flush 5-40 mL 5-40 mL Int raVENous PRN acetaminophen (TYLENOL) tablet 650 mg 650 mg Oral Q4H PRN heparin (porcine) i njection 5,000 Units 5,000 Units SubCUTAneous Q12H 0.9% sodium chloride infusion 100 mL/hr IntraVENous CONTINUOUS pantoprazole (PROTONIX) granules for oral suspension 40 mg 40 m g Per NG tubeACB ondansetron (ZOFRAN) injection 4 mg 4 mg IntraVENous Q6H PRN cefepime (MAXI PIME) 2 g in 0.9% sodium chloride (MBP/ADV) 100 mL MBP 2 gIntraVENous Q8H insulin lispro (HUM ALOG) injection SubCUTAneous AC&HS dextrose 40% (GLUTOSE) oral gel 1 Tube 15 g Oral PRN glucagon (GLUCAGEN) injection 1 mg 1 mg SubCUTAneous PRN dextrose (D50) infusio n 25 g 50 mL IntraVENous PRNLabs: Results:Chemistry Recent Labs 02/11/1904 1 02/10/1904GLU 96 113* -- 115* 115*NA 135* 136 -- 136 130*K 4.1 4.2 -- 4.6 4.6CL 97* 100 -- 99 91*CO2 36* 35* 37* 32 39*BUN 16 19* -- 12 10CREA 0.33* 0. 38* -- 0.34* 0.49*CA 8.8 8.7 -- 8.9 9.7AGAP 6* 5* -- 10 5*AP -- 71 -- 65 85TP -- 6. 5 -- 6.0* 7.8ALB -- 1.9* -- 1.8* 2.4*GLOB -- 4.6 -- 4.2 5.4*AGRAT -- 0.4* -- 0. 4* 0.4*CBC w/Diff Recent Labs 02/11/1904WB C 10.9* 8.8 14.5* 24.1*RBC 3.58* 3.34* 3.25* 3.96*HGB 11.5* 10.7* 10.4* 13.2*HCT 35.8* 34.4* 3 3.3* 40.8*PLT 330 287 282 365GRANS -- 87* -- 89*LYMPH -- 9* -- 4*EOS -- 0 -- --Cardiac Enzymes No results for input(s): CPK, CKND1, NESTOR in the last 72 hours.No lab e xists for component: CKRMB, TROIPCoagulation No results for input(s): PTP, INR, APTT, IN REXT, INREXT in the last72 hours.Lipid Panel Lab ResultsComponent Value Date/Time Cholest maria r, total 125 02/09/2019 04:45 AM HDL Cholesterol 62 02/09/2019 04:45 AM LDL, calculated 52 1 04:45 AM VLDL, calculated 11 02/09/2019 04:45 AM Triglyceride 55 02/09/2019 04:4 5 AM CHOL/HDL Ratio 2.0 02/09/2019 04:45 AMBNP No results for input(s): BNPP in the last 7 2 hours.Liver Enzymes Recent Labs TP 6.5ALB 1.9*AP 71SGOT 13*Thyroid Studies Lab ResultsComponent Value Date/Time TSH 1.100 02/09/2019 04:45 AMA1C Lab ResultsCompon ent Value Date/Time Hemoglobin A1c 4.4 02/09/2019 04:45 AMUrine AnalysisColorDate Value Re f Range Rjzlvm8802/08/2019 YELLOW YEL FinalAppearanceDate Value Ref Range Stat us02/08/2019 CLEAR CLEAR FinalSpecific gravityDate Value Ref Range Jppftr3002/08/2019 1.008 1 .003 - 1.030 FinalpH (UA)Date Value Ref Range Zroeei5802/08/2019 7.0 4.6 - 8.0 FinalPr oteinDate Value Ref Range Cgipph3502/08/2019 NEGATIVE NEG mg/dL FinalKetoneDate Value Ref Rang e Ynoqxm5902/08/2019 NEGATIVE NEG mg/dL FinalBilirubinDate Value Ref Range Statu 02/08/2019 NEGATIVE NEG FinalBloodDate Value Ref Range Zmmzan7202/08/2019 NEGATIVE NEG F inalUrobilinogenDate Value Ref Range Ibqjwf9902/08/2019 0.2 0.2 - 1.0 EU/dL FinalNitritesDate Va lue Ref Range Lkqzij8102/08/2019 NEGATIVE NEG FinalLeukocyte EsteraseDate Value Ref Ra nge Gmcmil5602/08/2019 NEGATIVE NEG FinalUrine MicroWBCDate Value Ref Range Aakpqy4001/21 0-3 0 - 5 /hpf FinalRBCDate Value Ref Range Wpopgu3301/21/2019 0-3 0 - 3 /hpf FinalEpi thelial cellsDate Value Ref Range Oowfnh9601/21/2019 0-3 0 - 10 /hpf FinalBacteriaDate Value Ref Range Vgfwds0601/21/2019 NONE NONE /hpf FinalCastsDate Value Ref Range Fbfdsu0101/21/2019 NONE NO NE /lpf FinalCrystals, urineDate Value Ref Range Jqojpb0901/21/2019 NONE NONE /LPF FinalXR Results (most recent):Results from Hospital Encounter encounter on 02/08/19XR CHEST SNGL V Rob rative AP portable film of the chest clinical indication pneumoniaStudy is compared to previous examination of February 08, 2019. Again noted iscardiac enlargement and a limited insp iration. There has been partial clearingof right mid lung densities. Again noted is an old fr acture of the left clavicle Impression IMPRESSION:Partial clearing right lung d ensities otherwise little changeRadiology/Pathology:Ct Chest Wo ContResult Date: 01/10/2019CT CH EST WO CONT Clinical data: evaluation of pneumonia rt lung. Priors:12/18/2018 Technique: CT scan of the chest was performed from the thoracic inletto below the diaphragm without administrati on of intravenous contrast. Theacquisition data was reviewed in the axial, sagittal and arsalan nal plane.Utilizing silver holloware assembler algorithm the examination was performed to optimizeima ging quality by utilizing the lowest possible radiation dose. Findings: Thereis no donna dence of pathological lymphadenopathy within the mediastinum, bilateralhilar and bilatera l axillary location. There is a 1.8 cm nodule along the rightwall of the trachea at the leve l of the thoracic inlet (best seen on image 13ofseries 2) not seen on the prior study. This ma y be due to a mucous plug. Noadditional endotracheal or endobronchial lesion is noted.Normal heart size.Coronary artery calcifications noted. Atherosclerotic thoracic aorta withoutan eurysmal dilatation. Evaluation lung windows demonstrates patchy right lowerlobe lung infiltrate. There is associated small right pleural effusion similarto prior. There is also small left pleural effusion with underlying passiveatelectasis slightly decreased fr om the prior study. No new lung pathology isobserved. Included upper abdominal organs: No sign ificant pathology is observedwithin the visualized upper abdominal organs.IMPRESSION: Small bilateral pleural effusion. Right effusion is similar toprior study. Left effusion sl ightly decreased in size. Patchy right lungopacities which may be due to pneumonia similar to previous examinations. 1.8cm nodule along the right lateral wall of the trachea at the level of thethoracic inlet not observed on the prior study and can be due to a mucous plug.Ct Chest W Cont F/uResult Date: 01/15/2019CT CHEST W CONT F/U Clinical data: R U L NODULE NEAR TRAC HEA / BLOOD VESSEL.Priors: 01/10/2019. Technique: CT scan of the chest was performed from the thoracic inlet to below the diaphragm following administration of intravenouscontrast. The acquisition data was reviewed in the axial, sagittal and coronalplane. 100 cc of low osmolar iodinated contrast-isovue 300 was injectedintravenously for the examinatio n. Utilizing silver holloware assembler algorithm theexamination was performed to optimize imaging quality by utilizing the lowestpossible radiation dose. Findings: There is no evidence of pathol ogicallymphadenopathy within the mediastinum, bilateral hilar and bilateral axillarylo cation. There is no evidence of a central endobronchial or an endotrachealmass. Pr eviously seen nodule along the right lateral wall of the trachea nolonger visualized. This m ay have represented a mucus lung which has dislodged.Coronary artery calcifications noted. Atherosclerotic thoracic aorta withoutaneurysmal dilatation. Elevated l eft hemidiaphragm. There is a small leftpleural effusion with underlying passive atelect atic changes similar to priorstudy. Improved previously seen right lower lobe lung in filtrate. There isassociated small right pleural effusion similar to prior examination. No newlung pathology is observed. Included upper abdominal organs: No significantpatholog y is observed within the visualized upper abdominal organs.IMPRESSION: 1. Previously seen t neetu nodule is no longer visualized. 2.Small left pleural effusion with underlying passive atelectatic changes similarto prior study. Stable elevation of the left hemidiaphragm. 3. Stable smallright pleural effusion. Interval improvement in the right lower lobe lung infiltrate. No new lung findings seen.Xr Chest PortResult Date: 02/08/2019XR CHEST PORT Clinical data: Sepsis Priors: 01/21/2019. Findings: The heart sizeis unchanged. Limited ins piration with right basilar lung opacities which canbe due to pneumonia. Slightly elevated lef t hemidiaphragm with left basilaratelectasis. No evidence of CHF or large pleural effusio n. Patient's downwardpointing chain obscures the right lung apex. There is an old healed leftclavicle fracture.IMPRESSION: Right lower lobe parenchymal opacities which can be due t opneumonia. Left basilar atelectatic changes in the juxtadiaphragmatic location.Limited insp iration compromises evaluation.Xr Chest PortResult Date: 01/21/2019Referring Physician: CHASITY Patient Name: EVELIO CARLIN THIS IS AFINAL REPORT FROM [facility] DATE OF SERVICE: 2019-01-21 22:23:43 IMAGES: 1EXAM: XY CHEST PORTABLE HISTORY: Rule out sepsis COMPARISON: Chest x-ray 01/17/19FINDINGS: The patient is rotated and obliquely positioned Ther e is no airspaceconsolidation. No pneumothorax. Persistent small bilateral pleural effus ions Thecardiac silhouette appears grossly stable. Limited assessment secondary topositioni ng and partially obscured heart borders The bones are demineralized.Limited visualization of t he thoracic spineIMPRESSION: Persistent small bilateral pleural effusions No radiograp hicevidence of acute airspace process THIS DOCUMENT HAS BEEN ELECTRONICALLY SIGNEDJohn Diogo Cole MD 01/21/2019 22:46 EST M.D. Please call Imaging On [phone] ([phone]) with questions. This report was electronically signedby: Noel Cole MD 019 10:48 PMXr Chest PortResult Date: 01/17/2019Portable chest x-ray. PRIOR EXA M: X-ray 01/10/2019 HISTORY: Hypoxia FINDINGS: Theheart is normal in size. The mediastinum and p ulmonary vessels are unremarkable.There is no acute infiltrate. The bony structures are inta ct.IMPRESSION: No acute pulmonary disease. There is very limited visualization ofthe right l eunice due to patient positioning.Xr Chest PortResult Date: 01/10/2019XR CHEST PORT Clinical da ta: Sepsis Priors: 12/29/2018. Findings: Examination iscompromised due to limited inspiration and patient rotation. Heart size isunchanged. Haziness seen at the right lung base can be due to small effusionwith atelectasis/infiltrate. No confluent left lung process is seen. Noevidence of CHF.IMPRESSION: Limited study. Suspect right lung base process which may be due tosmall effusion with atelectasis/infiltrate.Duplex Lower Ext Venous BilatResult Date: 2018HISTORY: swelling to lower extremities TECHNIQUE: Bilateral lower extremityvenous Doppler ultrasound Using real time and color- flow Doppler as well asspectral analysis and ultrasound examination was performed of the lowerextremities bilaterally. FINDINGS: On the right side the common femoral vein,superficial femoral vein along its entire course, as well as popl iteal vein allappeared widely patent, were easily compressible, showed normal spontaneousf low. The calf veins were not visualized due to body habitus. On the left sidethe common femo ral vein, superficial femoral vein along its entire course, aswell as popliteal vein all kanika eared widely patent, were easily compressible, andshowed normal spontaneous flow. The c detention veins were not visualized due to bodyhabitus.IMPRESSION: Normal bilateral lower extremity venous Doppler ultrasound with noevidence of deep vein thrombosis.No re sults found for this or any previous visit.Results from Hospital Encounter encounter on CT CHEST W CONT F/U Narrative CT CHEST W CONT F/UClinical data: R U L NODULE NEAR T RACHEA / BLOOD VESSEL.Priors: 01/10/2019.Technique: CT scan of the chest was performed from the thoracic inlet to belowthe diaphragm following administration of intravenous contrast. The acquisitiondata was reviewed in the axial, sagittal and coronal plane. 100 cc of lo wosmolar iodinated contrast-isovue 300 was injected intravenously for theexamination. Utiliz ing silver holloware assembler algorithm the examination was performed tooptimize imaging quality by utilizing the lowest possible radiation dose.Findings: There is no evidence of pathological lym phadenopathy within themediastinum, bilateral hilar and bilateral axillary location. There is noevidence of a central endobronchial or an endotracheal mass. Previously seennodule along the right lateral wall of the trachea no longer visualized. Thismay have represented a mucus lung which has dislodged. Coronary arterycalcifications noted. Atheroscler otic thoracic aorta without aneurysmaldilatation.Elevated left hemid iaphragm. There is a small left pleural effusion withunderlying passive atelectatic singleton es similar to prior study. Improvedpreviously seen right lower lobe lung infiltrate. There is associated smallright pleural effusion similar to prior examination. No new lung patholog y isobserved.Included upper abdominal organs: No significant pathology is observed within thevisualized upper abdominal organs. Impression IMPRESSION:1. Previously seen tracheal nodule is no longer visualized.2. Small left pleural effusion with underlying passive atelect atic changessimilar to prior study. Stable elevation of the left hemidiaphragm.3. Stable sma ll right pleural effusion. Interval improvement in the rightlower lobe lung infiltrate. No new lung findings seen.EKG:Results for orders placed or performed during the hospital encount er of 02/08/19EKG, 12 LEAD, INITIALResult Value Ref Range Ventricular Rate 97 BPM Atrial Rat e 97 BPM P-R Interval 148 ms QRS Duration 89 ms Q-T Interval 333 ms QTC Calculation (Bezet) 423 ms Calculated P [place] 38 degrees Calculated R [place] 17 degrees Calculated T [place] 28 degrees Diagnosis Sinus rhythmLow voltage, precordial leadsAssessment1. SOB2. COPD AC3. RLL PN EUMONIA4. ELROY EFFUSION5. R/O SEPSIS6. HYPONATREMIA7. AC ON CHRONIC HYPOXIC RESP FAILURE8. MEN KRYSTIAN RETARDATION9. CHRONIC [id number]. AMS/METABOLIC [id number]. Lung nod ule to f/uHospital Problems Date Reviewed: 02/11/2019 Codes Class Noted POA Pressure inj ury of right heel, stage 2 (HCC) ICD-10-CM: L89.612ICD-9-CM: 707.07, 707.22 019 Yes Leg wound, right, initial encounter ICD-10-CM: S81.220XOQA-6-QR: 894.0 02/09/2019 Yes SOB (shortness of breath) ICD-10-CM: R06.02ICD-9-CM: 786.05 02/08/2019 UnknownPlan1. BD2. IV ANTX[CEFEPIME]3. CHECK C/S4. BD5. MUCOMIST6. F/u labs7. pulm f/u8. Palliative9. D/c plann ingMy assessment, plan of care, findings, medications, side effects etc werediscussed with:[X]n ursing [ ]PT/OT[ ]respiratory therapy [ ]DrGualberto[ ]family [ ]PatientRachel Devang Annalee puente MDKarmanos Cancer Center 20189:32 PMThe billing code submitted in association with this evaluation also includes thetime to review patient's prior records, communicate with the nursing & physician teams, obtain corroborating data, and discuss the risk and benefits of theproposed management p frantz with the patient and their family >30 minutes. Name Value Range Interpretation Code Description Data Harriett rce(s) Supporting Document(s ) ID Date Data Source [id number] 02/11/2019 07:56:53 AM EDT [facility] Bedside and Verbal shift change report g ankit banda RN (oncoming nurse) Jewel Berkowitz RN(offgoing nurse). Report give n with SBAR, Kardex, Intake/Output, MAR and RecentResults. Name Value Range Interpretation Code Description Data Harriett rce(s) Supporting Document(s ) ID Date Data Source [id number] 02/11/2019 07:37:05 AM EDT [facility] Name Value Range Interpretation Description Data Sup porting Code Source(s) Document(s ) Glucose 98 MG/DL 65-110 [facility] - [facility] [Mass/volume] [facility] in Blood by Hospital Automated test strip ID Date Data Source [id number] 02/11/2019 06:49:05 AM EDT [facility] Name Value Range Interpretation Description Data Sup porting Code Source(s) Document(s ) Magnesium 1.7 mg/dL 1.6-2.6 [facility] - [facility] [Mass/volume] [facility] in Serum or Hospital Plasma ID Date Data Source [id number] 02/11/2019 06:49:05 AM EDT [facility] Name Value Range Interpretation Description Data Sup porting Code Source(s) Document(s ) Sodium 135 136-145 Below low normal [facility] - [facility] [Moles/volume] mmol/L [facility] in Serum or Hospital Plasma Potassium 4.1 3.5-5.1 [facility] - [facility] [Moles/volume] mmol/L [facility] in Serum or Hospital Plasma Chloride 97 98-107 Below low normal [facility] - [facility] [Moles/volume] mmol/L [facility] in Serum or Hospital Plasma Carbon 36 21-32 Above high normal [facility] - Good dioxide, total mmol/L [facility]ist [Moles/volume] Hospital in Serum or Plasma Anion gap in 6 mmol/L 10-20 Below low normal [facility] - Go od Serum or [facility] Plasma Hospital Glucose 96 mg/dL 74-106 [facility] [Mass/volume] [facility] in Serum or Hospital Plasma Urea nitrogen 16 mg/dL 7-18 [facility] [Mass/volume] [facility] in Serum or Hospital Plasma Creatinine 0.33 0.70-1.3 Below low normal [facility] - [facility] [Mass/volume] mg/dL 0 [facility] in Serum or Hospital Plasma Glomerular >60 [facility] - Good filtration Taoist rate/1.73 sq M Hospital predicted among blacks [Volume Rate/Area] in Serum or Plasma by Creatinine-bas ed formula (MDRD) Glomerular >60 [facility] - Good filtration Taoist rate/1.73 sq M Hospital predicted among non-blacks [Volume Rate/Area] in Serum or Plasma by Creatinine-bas ed formula (MDRD) Calcium 8.8 8.5-10.1 [facility] - [facility] [Mass/volume] mg/dL [facility] in Serum or Hospital Plasma ID Date Data Source [id number] 02/11/2019 06:39:26 AM EDT [facility] Name Value Range Interpretation Description Data Sup porting Code Source(s) Document(s ) Leukocytes 10.9 4.8-10.6 Above high normal [facility] - [#/volume] in K/uL Good Blood by [facility] Automated count Hospital Erythrocytes 3.58 4.70-6.0 Below low normal [facility] - [#/volume] in M/uL 0 Good Blood by Taoist Automated count [facility] Hemoglobin 11.5 14.0-18. Below low normal [facility] - [Mass/volume] in g/dL 0 Good Blood [facility] Hematocrit 35.8 % 42.0-52. Below low normal [facility] - [Volume 0 Good Fraction] of Taoist Blood by Hospital Automated count Erythrocyte mean 100.0 FL 81.0-94. Above high normal [facility] - corpuscular 0 Good volume [Entitic Taoist volume] by Hospital Automated count Erythrocyte mean 32.1 PG 27.0-35. [facility] - corpuscular 0 Good hemoglobin Taoist [Entitic mass] Hospital by Automated count Erythrocyte mean 32.1 30.7-37. [facility] - corpuscular g/dL 3 Good hemoglobin Taoist concentration [facility] [Mass/volume] by Automated count Erythrocyte 15.6 % 11.5-14. Above high normal [facility] - distribution 0 Good width [Ratio] by [facility] Automated count Hospital Platelets 330 K/uL 130-400 [facility] - [#/volume] in Good Blood by [facility] count [facility] Platelet mean 9.3 FL 9.2-11.8 [facility] - volume [Entitic Good volume] in Blood Taoist by Automated Hospital count ID Date Data Source [id number] 02/10/2019 09:10:55 PM EDT [facility] Name Value Range Interpretation Description Data Sup porting Code Source(s) Document(s ) Glucose 89 MG/DL 65-110 [facility] [Mass/volume] Taoist in Blood by Hospital Automated test strip ID Date Data Source [id number] 02/10/2019 07:16:56 PM EDT [facility] Bedside and Verbal shift change report carol pham to Jerry RN (oncoming nurse) Niyah Israel RN(offgoing nurse). Report given with SBAR, Kardex, Intake/Output, MAR and RecentResults. Name Value Range Interpretation Code Description Data Harriett rce(s) Supporting Document(s ) ID Date Data Source [id number] 02/10/2019 04:58:09 PM EDT [facility] ID Progress Note02/10/2019Subjective:Pat ient with MR non verbal,unable to provide history.AfebrileObjective:Vitals:Patient Vitals for the past 24 hrs: BP Temp Pulse Resp RuP96202/10/19 1514 153/63 98.3 F (3 6.8 C) 82 18 91 %02/10/19 1114 141/67 97.8 F (36.6 C) 80 20 91 %02/10/19 0721 131/ 77 98.7 F (37.1 C) 74 20 91 %02/10/19 0400 131/74 97.4 F (36.3 C) 83 19 92 %02/10 0123 - - - - 91 %02/10/19 0003 133/79 99.5 F (37.5 C) 82 19 91 %02/10/19 000 0 - - 87 - -02/09/192131 - - - - 93 %02/09/192051 - - - - 93 %02/09/191999 - - 94 - -02/09/19 1959 140/77 98 F (36.7 C) 79 20 95 %Tmax: Temp (24hrs), Av .3 F (36.8 C), Min:97.4 F (36.3 C), Max:99.5 F(37.5 C)Physical Exam:Genera l: Awake non verabl cooperative, no distressEyes: Conjunctivae/corneas sudhakar r. PERRLNeck: Supple, symmetrical, trachea midline, no adenopathyLungs: Bilateral breath sounds with basal crackles..Heart: Regular rate and rhythm, S1, S2 normal, no murmurAbdomen: Soft, non-tender. Bowel sounds normal. No masses, No organomega ly.+peg+Back: No CVA tenderness.Extremities: No cyanosis,safety and skill based pay manager nicolas lymphedemaPulses: 2+ and symmetric all extremities.Skin: Skin color, texture, t urgor normal. No rashes or lesionsCurrent Facility-Administered MedicationsMedicat ion Dose Route Frequency methylPREDNISolone (PF) (Solu-MEDROL) injection 40 mg 40 m g IntraVENous Q12H budesonide (PULMICORT) 500 mcg/2 ml nebulizer suspension 500 m cg NebulizationBID RT albuterol-ipratropium (DUO-NEB) 2.5 MG-0.5 MG/3 ML 3 mL Nebul ization Q6H RT acetylcysteine (MUCOMYST) 100 mg/mL (10 %) nebulizer solution 400 mg 4 mLNebulization TID RT sodium chloride (NS) flush 5-10 mL 5-10 mL IntraVENous PRN cinacalcet (SENSIPAR) tablet 60 mg 60 mg Oral DAILY ALPRAZolam (XANAX) tablet 0. 25 mg 0.25 mg Per G Tube QID PRN lamoTRIgine (LaMICtal) tablet 50 mg 50 mg Per G Tube BID multivitamin (ONE A DAY) tablet 1 Tab 1 Tab Per G Tube DAILY va lproic acid (as sodium salt) (DEPAKENE) 250 mg/5 mL (5 mL) oral solution 750mg 750 mg Oral Q12H sodium chloride (NS) flush 5-40 mL 5-40 mL IntraVENous Q8H sodium chlo ride (NS) flush 5-40 mL 5-40 mL IntraVENous PRN acetaminophen (TYLENOL) tablet 650 mg 650 mg Oral Q4H PRN heparin (porcine) injection 5,000 Units 5,000 Units SubCU TAneous Q12H 0.9% sodium chloride infusion 100 mL/hr IntraVENous CONTINUOUS pantop razole (PROTONIX) granules for oral suspension 40 mg 40 mg Per NG tubeACB ondansetron (ZOFRAN) injection 4 mg 4 mg IntraVENous Q6H PRN cefepime (MAXIPIME) 2 g in 0.9% sodium chloride (MBP/ADV) 100 mL MBP 2 gIntraVENous Q8H insulin lispro (HUMALOG) injection SubCUTAneous AC&HS dextrose 40% (GLUTOSE) oral gel 1 Tube 15 g Oral PRN glucagon (GLUCAGEN) injection 1 mg 1 mg SubCUTAneous PRN dextrose (D 50) infusion 25 g 50 mL IntraVENous PRNLabs:Recent Labs 02/08/1917WBC 8.8 14.5* 24.1*HGB 10.7* 10.4* 13.2*PLT 287 282 365BUN 19* 12 10CREA 0.38* 0.34* 0.49*SGOT 13* 13* 19AP 71 65 85TBILI 0.2 0.2 0.3Cultures:Lab Re sultsComponent Value Date/Time Culture result: NO GROWTH 2 DAYS 02/08/2019 05:1 9 PM Culture result: NO GROWTH 2 DAYS 02/08/2019 05:00 PM Culture result: NO G ROWTH 5 DAYS 01/21/2019 11:30 PMRadiology:Duplex Upper Ext Venous Left Result Date: 02/10/2019LEFT UPPER EXTREMITY DOPPLER History: DVT. High-resolution li near sonography ofthe left upper extremity was performed using Color Doppler Flow a nd DuplexDoppler Spectral sonography. There is no evidence of a deep vein thrombosis . Thecephalic vein could not be visualized. The left internal jugular, subclavian,ax illary, brachial and basilic veins are patent and completely compressible.Spontaneous and phasic flow is noted.IMPRESSION: No evidence of deep vein thrombosis.Duplex Lower Ext Venous BilatResult Date: 02/10/2019RIGHT and LEFT LOWER EXTREMITY VENOUS DOPPLER STUDIES: Right and Left lowerextremity venous spectral Doppler s tudies are performed using Color Doppler Flowand enhanced Duplex Spectral techniq ue. History: Pain and swelling. There is noevidence of deep venous thrombosis pre sent. There is normal compressibility,augmentation and phasici ty from common femoral vein through popliteal vein. .The anterior tibial and peroneal veins are not visualized. The posterior tibialveins of the calf are patent.IMPRE SSION: No evidence of lower extremity deep venous thrombosis bilaterally.Limited ca lf evaluation.Assessment: Aspiration pneumonia Acute COPD exacerbation. Acu te respiratory failure with hypoxia. Dysphagia Atelectasis Plan:1. Continue IV cefepime2. Follow cultures.Cassy Beauchamp 20184:54 PM Name Value Range Interpretation Code Description Data Harriett rce(s) Supporting Document(s ) ID Date Data Source [id number] 02/10/2019 04:27:36 PM EDT [facility] RIGHT and LEFT LOWER EXTREMITY VENOUS DO PPLER STUDIES:Right and Left lower extremity venous spectral Doppler studies are perf ormedusing Color Doppler Flow and enhanced Duplex Spectral technique.History: Pain and swelling.There is no evidence of deep venous thrombosis present. There is nor malcompressibility, augmentation and phasicity from common femoral vein throu ghpopliteal vein. .The anterior tibial and peroneal veins are not visualized. The p osterior tibialveins of the calf are patent.IMPRESSION: No evidence of lower extremity deep venous thrombosis bilaterally. Limited calfevaluation. Sig keith date/time: 02/10/2019 4:27 PMSigned by: LIONEL LOCKHART Name Value Range Interpretation Code Description Data Harriett rce(s) Supporting Document(s ) ID Date Data Source [id number] 02/10/2019 04:22:36 PM EDT [facility] LEFT UPPER EXTREMITY DOPPLERHistory: DVT .High-resolution linear sonography of the left upper extremity was performedusing Color Doppler Flow and Duplex Doppler Spectral sonography.There is no evidence of a deep vein thrombosis. The cephalic vein could not bevisualized. The left interna l jugular, subclavian, axillary, brachial andbasilic veins are patent and complete ly compressible. Spontaneous and phasicflow is noted.IMPRESSION: No evidence of deep vein thrombosis. Signing date/time: 02/10/2019 4:22 PMSigned by: DG LOCKHART Name Value Range Interpretation Code Description Data Harriett rce(s) Supporting Document(s ) ID Date Data Source [id number] 02/10/2019 04:22:26 PM EDT [facility] Name Value Range Interpretation Description Data Sup porting Code Source(s) Document(s ) Glucose 94 MG/DL 65-110 [facility] [Mass/volume] Taoist in Blood by [facility] Automated test strip ID Date Data Source [id number] 02/10/2019 03:31:11 PM EDT [facility] RECOMMENDATIONS:Pulmocare @ 55 ml/hr, wi th 100 ml free water flush q 3 hr, as needed if no IVFNUTRITION ASSESSMENT MST Screen Subjective: Per transfer records, pt tolerating Osmolite 1.5, bolus, 1 can q 6hr.Admitting Dx: SOB (shortness of breath) [R06.02]Medical Hx:Past Medical History: Diagnosis Date Chronic obstructive pulmonary disease (HCC) Diaphragmatic hernia with out obstruction and without gangrene GERD (gastroesophageal reflux disease) Hyper parathyroidism (HCC) Mental retardation 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) Pneumoni a Psychiatric disorder schizophrenia Pulmonary emboli (HCC) Schizophrenia (H CC)Diet Order: Pulmocare @ 35 ml/hr (1260 kcal, 52 g PRO)Active OrdersThere are no active orders of the following types: Diet.Allergies: Patient has no known all ergies.Labs:CMP:Lab ResultsComponent Value Date/Time NA 136 02/10/2019 04:25 AM K 4 .2 02/10/2019 04:25 AM CL 100 02/10/2019 04:25 AM CO2 35 (H) 02/10/2019 04:25 AM AGAP 5 (L) 02/10/2019 04:25 AM GLU 113 (H) 02/10/2019 04:25 AM BUN 19 (H) 9 04:25 AM CREA 0.38 (L) 02/10/2019 04:25 AM GFRAA >60 02/10/2019 04:25 AM GFRNA >60 02/10/2019 04:25 AM CA 8.7 02/10/2019 04:25 AM MG 1.9 02/10/2019 04:25 AM ALB 1.9 (L ) 02/10/2019 04:25 AM TP 6.5 02/10/2019 04:25 AM GLOB 4.6 02/10/2019 04:25 AM AGRAT 0. 4 (L) 02/10/2019 04:25 AM SGOT 13 (L) 02/10/2019 04:25 AM ALT 7 (L) 02/10/2019 04:25 AMPOC 110, 106Nutritionally Significant Meds: Humalog (held), River-mireya taylor, JosesessmentLast 3 Recorded Weights in this Encounter 02/08/19 1618 02/09/19 0509Weight: 56.7 kg (125 lb) 59.1 kg (130 lb 3.2 oz)Height: 5' 2" (157.5 cm)Body mass index is 23.81 kg/m .UBW: 120-130 lb, chart review %UBW: 100-108%IBW: 118 lb %IBW : 110%Wt Readings from Last 6 Encounters:02/09/19 59.1 kg (130 lb 3.2 oz)01/21/19 56.9 kg (125 lb 8 oz)12/30/18 51.8 kg (114 lb 4.8 oz)11/27/18 53.3 kg (117 lb 6.4 oz)09/26/15 54.9 kg (121 lb)Nutrition Focused Physical Assessment :[place] Muscle Wasting-ModerateOral/GI Issues:+PEGSkin:Per WOCN: Right leg woun d, limited to skin level POARight heel stage 2 pressure injury POAEdema:Peripheral Va scular (WDL): Exceptions to Within Defined LimitsLUE: 2+LLE: 1+RLE: 1+Appetite: N/A - EN% Meal Intake:N/ANo data found.Fluid Intake:Intake/Output Summary (Last 24 ho urs) at 02/10/2019 1102Last data filed at 02/10/2019 0552Gross per 24 hourIntake 3 220 mlOutput -Net 3220 mlNutrition Rx: 6118-1801 kcal; 74-89 g protein (1.25-1. 5 g/kg); 6766-4707 mlfluid (1 ml/kcal)[based on:30-35 Kcal/kg]% Estimated Energy Need s Met: 50-75%% Estimated Protein Needs Met: 50-75%% Fluid Needs Met: >100%- IVFEduca tion Needs: [x] Not indicated at this time [] Indicated at this timeNutrition DiagnosisIncreased protein and energy needs related to wound healing as evidenced by Rheel stage 2 pressure injury, R leg woundIntervention:Recommend advance tube feeding order to: Pulmocare @ 55 ml/hr, to proivde 1980kcal, 83 g PRO, 140 g carb, 123 g fat, 1036 ml free water, with 100 ml freewater flush q 3 hr, as needed if no IVFGoals:Pt meets >80% of estimated protein and energy needs within 3-7 daysMonitori ng and EvaluationFollow EN/PN RxSkin integrityDischarge Planning:Pending Clin ical Course [x] No cultural, quaker, or ethnic dietary needs identified [] Cult ural, quaker and ethnic food preferences identified and addressed [] Participate d in care plan, discharge planning/Interdisciplinary roundsNadia Baig RD Name Value Range Interpretation Code Description Data Harriett rce(s) Supporting Document(s ) ID Date Data Source [id number] 02/10/2019 12:59:53 PM EDT [facility] PULMONARY/ CCM- Consult NotePatient: Ivelisse Carlin Sex: male DOA: 02/08/2019Date of : [birth year] Age: 68 y.o. LOS: LOS: 2 daysHPI: step down.Evelio Carlin is a 68 y.o. 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 Authoriz ing Providermultivitamin (MULTI-DELYN, WELLESSE) liqd 5 mL by Per G Tube route daily. YesProvider, Historicalvalproic acid, as sodium salt, (DEPAKENE) 250 mg/ 5 mL (5 mL) soln oral mg by Per G Tube route every twelve (12) hours. Roberto s Provider, Historicalacetylcysteine (MUCOMYST) 100 mg/mL (10 %) nebulizer so lution Take 4 mL byinhalation two (2) times a day. Yes Provider, Historicalzinc oxid e 10 % topical cream Apply to affected area daily. Ribbon around GTsite Yes Provid er, Historicalomeprazole (PRILOSEC) 2 mg/mL susp 2 mg/mL oral suspension (compounded ) 40 mg byPer G Tube route daily. Yes Provider, Historicalsilver sulfADIAZINE (SILVADENE) 1 % topical cream Apply to affected area two(2) times a day. 1 inch ribbon- right edge Yes Provider, Historicalcholestyramine-aspartame (QUES [place] LIGHT) 4 gram packet Take 1 Packet by mouthtwo (2) times a day.Patient taking differently: 4 g two (2) times a day. Via G tube. 01/24/19 YesMili Hills DOcl orazepate (TRANXENE) 3.75 mg tablet 1 Tab by Per G Tube route nightly. MaxDaily Amoun t: 3.75 mg. 12/30/18 Yes Mili Hills DOcinacalcet (SENSIPAR) 30 mg tablet Cecilio e 2 Tabs by mouth daily.Patient taking differently: 60 mg daily. Via G tube 12/14 10/31 Yes Mili Hills DOlamoTRIgine (LAMICTAL) 25 mg tablet 2 Tabs by Per G Tube route two (2) times aday. 12/30/18 Yes Mili Hills DOalbuterol-ipratropium (DUO-NEB) 2.5 mg-0.5 mg/3 ml nebu 3 mL by Nebulizationroute every six (6) hours. E very 6 hours while awake 12/30/18 Yes Mili Hills DObudesonide (PULMICORT) 0.5 mg/2 mL nbsp 2 mL by Nebulization route two (2) timesa day. 12/30/18 Yes Mili Hills DOacetaminophen (TYLENOL) 32MG/ML soln solution Take 20.3 mL by mouth ever y four(4) hours as needed for Pain or Fever. 01/24/19 Mili Hills DOinfluenza vaccine 2019-20, 65 yrs+,,PF, (FLUZONE HIGH-DOSE) syrg injection 0.5mL by Intra MUSCular route PRIOR TO DISCHARGE. 01/24/19 Mili Hills DObacitracin 500 unit/g escobar ointment Apply 1 Packet to affected area two (2) timesa day. Indications: minor s kin infection due to bacteria, facial scabs 12/30/18Mili Hills DONo Known Aller Fam Surgical History:Procedure Laterality Date HX GASTROSTOMY PEG- rep laced 11/2018History reviewed. 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 Use Smoking status: Never Smoker Smokeless tobacco: Never UsedSubstance a nd Sexual Activity Alcohol use: No Drug use: NoReview of SystemsPertinent items are noted in the History of Present Illness.Physical Exam:Current medication s:Current Facility-Administered Medications: methylPREDNISolone (PF) (Solu-MEDROL) i njection 40 mg, 40 mg, IntraVENous,Q12H, Chay Palma MD albuterol- ipratropium (DUO-NEB) 2.5 MG-0.5 MG/3 ML, 3 mL, Nebulization, Q6HRT, Stella Hamilton MD, 3 mL at 02/10/19 0746 acetylcysteine (MUCOMYST) 100 mg/mL (10 %) nebulizer so lution 400 mg, 4 mL,Nebulization, TID RT, Krystian Monae MD, 400 mg at 02/10/19 07 46 sodium chloride (NS) flush 5-10 mL, 5-10 mL, IntraVENous, PRN, Hillary Palma MD budesonide (PULMICORT) 500 mcg/2 ml nebulizer suspension, 500 mcg,Nebuliz ation, BID, Chay Palma MD, 500 mcg at 02/10/19 0747 cinacalcet (SENSI PAR) tablet 60 mg, 60 mg, Oral, DAILY, Latrell Palma MD, 60 mg at 0858 ALPRAZolam (XANAX) tablet 0.25 mg, 0.25 mg, Per G Tube, QID PRN,Chay Flores MD, 0.25 mg at 02/10/19 0035 lamoTRIgine (LaMICtal) tablet 50 mg, 50 mg, Per G Tube, BID, Chay Palma MD, 50 mg at 0858 multivitamin (ONE A DAY) tablet 1 Tab, 1 Tab, Per G Tube, DAILY,Gael springerushChay MD, 1 Tab at 02/10/19 0858 valproic acid (as sodium salt) (DEPAKENE ) 250 mg/5 mL (5 mL) oral [id number] mg, 750 mg, Oral, Q12H, Chay Palma MD, 750 mg at 02/10/19 0858 sodium chloride (NS) flush 5-40 mL, 5-40 mL, In traVENous, Q8H, Chay Palma MD, 10 mL at 02/10/19 0600 sodium chloride (NS) flush 5-40 mL, 5-40 mL, IntraVENous, PRN, Chay Palma MD acetam inophen (TYLENOL) tablet 650 mg, 650 mg, Oral, Q4H PRN, Chay Palma M D, 650 mg at 02/09/19 2239 heparin (porcine) injection 5,000 Units, 5,000 U nits, SubCUTAneous, Q12H,hCay Palma MD, 5,000 Units at 02/09/19 22 36 0.9% sodium chloride infusion, 100 mL/hr, IntraVENous, CONTINUOUS,Chay Wiley MD, Last Rate: 100 mL/hr at 02/09/19 1738, 100 mL/hr at1 1738 pantoprazole (PROTONIX) granules for oral suspension 40 mg, 40 mg, Per NGtube, ACB , Chay Palma MD, 40 mg at 02/10/19 0858 ondansetron (ZOFRAN) inj ection 4 mg, 4 mg, IntraVENous, Q6H PRN,Chay Palma MD cefepi me (MAXIPIME) 2 g in 0.9% sodium chloride (MBP/ADV) 100 mL MBP, 2 g,IntraVENous, Q 8H, Chay Palma MD, Stopped at 02/10/19 0315 insulin lispro (HUMALOG) injection, , SubCUTAneous, AC&HS, Chay Palma MD, Stopped at 1 2200 dextrose 40% (GLUTOSE) oral gel 1 Tube, 15 g, Oral, PRN, Sohan shChay MD glucagon (GLUCAGEN) injection 1 mg, 1 mg, SubCUTAneous, PRN, Chay Palma MD dextrose (D50) infusion 25 g, 50 mL, IntraVENous, PRN, Latrell Palma MDDataVisit VitalsBP 141/67 (BP 1 Location: Left arm, BP Siri ent Position: At rest;Supine)Pulse 80Temp 97.8 F (36.6 C)Resp 20Ht 5' 2" (1 .575 m)Wt 59.1 kg (130 lb 3.2 oz)SpO2 91%BMI 23.81 kg/m Intake and Output:Date 07 - 02/10/19 0602/10/19699 - 02/11/19 0659Shift 8877-6782 7285-9722 2 4 Hour Total 5351-1620 3512-9283 24 Hour TotalINTAKEI.V.(mL/kg/hr) 1300(1.8) 1300 (1.8) 2600(1.8) Volume (0.9% sodium chloride infusion) 1200 1100 2300 Volume (cefepi me (MAXIPIME) 2 g in 0.9% sodium chloride (MBP/ADV) 100 mL MBP)100 200 300NG/GT 62 0 620 Medication Volume (Feeding Tube ) 200 200 Intake (ml) (Feeding Tube ) 420 4 20Shift Total(mL/kg) 1920(32.5) 1300(22) 3220(54.5)OUTPUTShift Total(mL/kg)NET 19 20 1300 3220Weight (kg) 59.1 59.1 59.1 59.1 59.1 59.1Pulse OX:SpO2 Readings from [place] 6 Encounters:02/10/19 91%01/24/19 93%12/30/18 96%11/27/18 91%09/26/15 96%@ LASTSAO2(6)@PHYSICAL EXAM:General: Lethargic,responding.Head: Normocephal ic, without obvious abnormality, atraumatic.Eyes: Conjunctivae clear, a nicteric sclerae. Pupils are equalNose: Nares normal. No drainage or sinus tende rness.Throat: Lips, mucosa, and tongue normal. No ThrushNeck: Supple, symmetr ical, no adenopathy, thyroid: non tender no carotid bruit and no JVD.Back: Symmet rodger, No CVA tenderness.Lungs: Scattered rhonchi,Chest wall: No tenderness or de formity. No Accessory muscle use.Heart: Regular rate and rhythm, no murmur, rub or gallop.Abdomen: Soft, non-tender. Not distended. Bowel sounds normal. No mass esExtremities: Extremities normal, atraumatic, No cyanosis. No edema. No c lubbingSkin: Texture, turgor normal. No rashes or lesions. Not JaundicedLymph n odes: Cervical, supraclavicular normal.Psych: Good insight. Not depressed. Not anxi ous or agitated.Neurologic: EOMs intact. No facial asymmetry. No aphasia or slurred speech.Most recent labs:Recent Labs 02/10/1904WB C 8.8 14.5* 24.1*HGB 10.7* 10.4* 13.2*HCT 34.4* 33.3* 40.8*PLT 287 282 365Recent L abs 02/09/1914NA 136 -- 136 130*K 4.2 - - 4.6 4.6CL 100 -- 99 91*CO2 35* 37* 32 39*GLU 113* -- 115* 115*BUN 19* -- 1 2 10CREA 0.38* -- 0.34* 0.49*CA 8.7 -- 8.9 9.7MG 1.9 -- 1.6 --PHOS -- -- 2.8 --ALB 1.9* -- 1.8* 2.4*TBILI 0.2 -- 0.2 0.3SGOT 13* -- 13* 19ALT 7* -- 9 * 9*Recent Labs 4PH 7.42PCO2 55*PO2 59*HCO3 36*ABG:Recent Labs 02/09 7.42PCO2 55*PO2 59*HCO3 36*Cultures:No results found for: SDESLa b ResultsComponent Value Date/Time Culture result: NO GROWTH 2 DAYS 02/08/2019 05:1 9 PM Culture result: NO GROWTH 2 DAYS 02/08/2019 05:00 PM Culture result: NO G ROWTH 5 DAYS 01/21/2019 11:30 PM Culture result: NO GROWTH 2 DAYS 01/21/2019 11:1 5 PM Culture result: NO GROWTH 5 DAYS 01/21/2019 11:00 PM Culture result: NO G ROWTH 1 DAY 01/10/2019 08:58 AM Culture result: NO GROWTH 5 DAYS 01/10/2019 07:5 5 AM Culture result: NO GROWTH 5 DAYS 01/10/2019 07:40 AM Culture result: NO G ROWTH 5 DAYS 12/29/2018 11:23 AM Culture result: NO GROWTH 5 DAYS 12/29/2018 11:0 0 AM Culture result: 10,000 to 50,000 COLONIES/mL KLEBSIELLA PNEUMONIAE (A) 11:00 AM Culture result: 50,000-100,000 COLONIES/mL PSEUDOMONAS A ERUGINOSA (A)12/29/2018 11:00 AM Culture result: (A) 12/29/2018 11:00 AM 10,000 to 50,000 COLONIES/mL STAPHYLOCOCCUS EPIDERMIDIS Culture result: NO GROWTH 2 DAYS 12/24/2018 09:45 AM Culture result: NO GROWTH 5 DAYS 12/23/2018 12:00 PM Cultur e result: NO GROWTH 5 DAYS 12/23/2018 11:40 AM Culture result: NO GROWTH 4 DAYS 09/2018 12:30 PM Culture result: NO GROWTH 4 DAYS 12/19/2018 12:30 PM Culture result: NO GROWTH 1 DAY 12/12/2018 08:04 PM Culture result: NO GROWTH 5 DAYS 12/12/2018 07:4 0 PM Culture result: NO GROWTH 5 DAYS 12/12/2018 07:40 PM Culture result: NO G ROWTH 2 DAYS 11/20/2018 09:00 AM Culture result: NO GROWTH 5 DAYS 11/07/2018 08:1 0 PM Culture result: NO GROWTH 5 DAYS 11/07/2018 08:00 PMImages:Cta Chest W Or W Wo ContResult Date: 11/08/2018Examination: CTA Chest ? PE angiography History: Hypo magdy; rule out pneumoniaversus pulmonary embolism Priors: None Technique: Low-d ose, multiplanar,helical CTA chest was performed with bolus IV injection from lung apices tobases. 3D-reformatted images were obtained and reviewed on a [employer] d viewingworkstation and directly supervised. Contrast: A total of 71 mL of Isovue-370 was administered intravenously for this procedure. Findings: No evidence ofpulmo nary embolism is seen. There is decreased size of the right hemithorax fromchronic scarring and retraction with mediastinal shift left to right.Additional area of c onsolidation is seen in the right lower lobe and suggestssuperimposed pneumonia with subsegmental atelectasis. Subsegmental atelectasisis also noted in the left jorge g base, with pleural parenchymal scarring. Lowlung volumes are seen. No pneumothora x seen. Aorta normal in caliber withoutaneurysm or dissection. Mediastin um no adenopathy. Mediastinal shift is seen inthe left and right as a result of chr onic changes in the right hemithorax.Heart shows no chamber enlargement or pericard ial effusion. No acute fracturesseen in the bony thorax, sternum, manubrium and rib cage. Multiple compressiondeformities are seen in the mid and lower thoracic spine , with superimposedspondyloarthropathy. Cannot exclude acute fracture.Impression : No evidence of pulmonary embolism Right lower lobe pneumoniasuggested. Incidenta l scarring and retraction in the right hemithorax fromremote/chronic inflammato ry disease and/or trauma. Bibasilar subsegmentalatelectasis. Report Electron ically Signed By: Pawel Zafar M.D. -11/08/2018 12:40 AMXr Chest PortResult D ate: 11/07/2018XR CHEST PORT CLINICAL INDICATION PROVIDED:. "sob." COMPARISON: . 09/26/2015.FINDINGS:. The pericardial/cardiac silhouette is enlarg ed in the transversedimension. There is no pulmonary vascular congestion or interst itial edema.Linear density in the left lung base and faint densities in the right mi d tolower lung likely represent atelectasis. There is no lobar consolidation oreffusi on. There is no pneumothorax.IMPRESSION:. Bilateral lower lung atelectasis. No donna dence of consolidation oreffusion.Assessment/PlanActive Problem s: SOB (shortness of breath) (02/08/2019) Pressure injury of right heel, stage 2 ( HCC) (02/09/2019) Leg wound, right, initial encounter (02/09/2019) Acute resp failur e combined better. pneumonia acute copd exacerbationPLAN,Monitoring,bipap prn fo r resp distressIvabx as per id,Steroid nebbipap prn and at night.NebGi /dvt pro phylaxis.D/w nursing staff.Stella Hamilton MDOctober 2018The billing code submi tted in association with this evaluation also includes thetime to review patient's yuan or records, communicate with the physician team,obtain corroborating data, and disc uss the risk and benefits of the proposedmanagement plan with the patient and their family >30 minutes. Name Value Range Interpretation Code Description Data Harriett rce(s) Supporting Document(s ) ID Date Data Source [id number] 02/10/2019 12:28:47 PM EDT [facility] Progress notePatient: Evelio Carlin Sex: male DOA: 02/08/2019Date of : 1950 Age: 68 y.o. LOS: 2 daysHPI:Evelio Carlin is a 68 y.o. male who Was admitted with sob,pneumoni a.Pt is a resident of [facility],pt with h/o COPD ,GERD,PULMEMBOLISM,PNEUMONIA,HYPERPARATHYROIDISM,MENTALRETARDATION,SCHIZOPHRENIA ,PARKINSON,Pt was brought to er by EMS withsob,cough,t achypneic,+leukocytosis,hyponatremia,Cxr with Rt basilar pneumonia,Lt basilar atelectasis ,Pt was put on BD,iv fluids,iv antx,Pt seen by pulm,to continue current rxvss afebrileChest ct; 01/10/19Small bilateral pleural effusion. Right effusion is similar to prior study.Left effusion slightly decreased in size. Patchy right lung opacities which maybe due to pneumo freddy similar to previous examinations. 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) Pneumonia Psychiatric disorder schizophrenia Pulm onary emboli (HCC) Schizophrenia (HCC)Past Surgical History:Procedure Laterality Date HX GA STROSTOMY PEG- replaced 11/2018Review of Systems: [x] Unable to obtain ROS due to [x]mental s tatus change []sedated[]intubated []Total of 12 systems reviewed as follows:Constitution al: negative fever, negative chills, negative weight lossEyes: negative diplopia or visual changes, negative eye painENT: negative coryza, negative sore throatRespiratory: negati ve cough, hemoptysis, dyspneaCards: negative for chest pain, palpitations, lower extremit y edemaGI: negative for nausea, vomiting, diarrhea, and abdominal painGenitourinary: negativ e for frequency, dysuria and hematuriaIntegument: negative for rash and pruritusHematologi c: negative for easy bruising and gum/nose bleedingMusculoskel: negative for myalgi as, arthralgias, back pain and muscle weaknessNeurological: negative for head aches, dizziness, vertigo, memory problems andgait problemsBehavl/Psych: negative for feeli ngs of anxiety, depressionPertinent Positives include :History reviewed. No pertinent family h istory.Social HistorySocioeconomic History Marital status: SINGLE Spouse name: Not on file Number of children: Not on file Years of education: Not on file Highest education level: No t on fileTobacco Use Smoking status: Never Smoker Smokeless tobacco: Never UsedSubstance a nd Sexual Activity Alcohol use: No Drug use: NoOther Topics ConcernPrior to Admission medicat ionsMedication Sig Start Date End Date Taking? Authorizing Providermultivitamin (MULTI- DELYN, WELLESSE) liqd 5 mL by Per G Tube route daily. YesProvider, Historicalvalproic acid, a s sodium salt, (DEPAKENE) 250 mg/5 mL (5 mL) soln oral [id number] mg by Per G Tube route every twelve (12) hours. Yes Provider, Historicalacetylcysteine (MUCOMYST) 100 mg/mL (10 %) nebulizer solution Take 4 mL byinhalation two (2) times a day. Yes Provider, His toricalzinc oxide 10 % topical cream Apply to affected area daily. Ribbon around GTsit e Yes Provider, Historicalomeprazole (PRILOSEC) 2 mg/mL susp 2 mg/mL oral suspension (comp ounded) 40 mg byPer G Tube route daily. Yes Provider, Historicalsilver sulfADIAZINE (SILVADENE) 1 % topical cream Apply to affected area two(2) times a day. 1 inch ribbon- right edge Yes Provider, Historicalcholestyramine-aspartame (QUES [place] LIGHT) 4 gram packet Take 1 Packet by mouthtwo (2) times a day.Patient taking different ly: 4 g two (2) times a day. Via G tube. 01/24/19 YesMili Hills DOclorazepate (TRANX SHARRON) 3.75 mg tablet 1 Tab by Per G Tube route nightly. MaxDaily Amount: 3.75 mg. 12/30/18 Yes Mili Brooks DOcinacalcet (SENSIPAR) 30 mg tablet Take 2 Tabs by mouth daily.Patient takin g differently: 60 mg daily. Via G tube 12/30/18 Yes Mili Hills DOlamoTRIgine (LAMICTAL) 25 mg tablet 2 Tabs by Per G Tube route two (2) times aday. 12/30/18 Yes Mili Hills DOal buterol-ipratropium (DUO-NEB) 2.5 mg-0.5 mg/3 ml nebu 3 mL by Nebulizationroute every six (6) hours. Every 6 hours while awake 12/30/18 Yes Mili Hills DObudesonide (PULMICORT) 0.5 mg/2 mL nbsp 2 mL by Nebulization route two (2) timesa day. 12/30/18 Yes Mili Hills DOacetaminophen (TYLENOL) 32MG/ML soln solution Take 20.3 mL by mouth every four(4) hours as needed for Pain or Fever. 01/24/19 Mili Hills DOinfluenza vaccine 2019-20, 65 yrs+,,PF , (FLUZONE HIGH-DOSE) syrg injection 0.5mL by IntraMUSCular route PRIOR TO DISCHARGE. 01/24/19 Mlii Hills DObacitracin 500 unit/gram ointment Apply 1 Packet to affected area two (2) timesa day. Indications: minor skin infection due to bacteria, facial scabs 12/30/18Nel son, Meseret Polanco Known AllergiesPhysical Exam:Visit VitalsBP 131/77 (BP 1 Location: Right ar m, BP Patient Position: At rest)Pulse 74Temp 98.7 F (37.1 C)Resp 20Ht 5' 2" (1.575 m)Wt 59. 1 kg (130 lb 3.2 oz)SpO2 91%BMI 23.81 kg/m PHYSICAL EXAM:General: Awake,eyes open,non lani bal,, appears stated age.Head: Normocephalic, without obvious abnormality, atraumatic. Eyes: Conjunctivae clear, anicteric sclerae. Pupils are equalNose: Nares normal. No drainag e or sinus tenderness.Throat: Lips, mucosa, and tongue normal. No ThrushNeck: Supple, symmetrical, no adenopathy, thyroid: non tender no carotid bruit and no JVD.Back: Symmet rodger, No CVA tenderness.Lungs: . No Wheezing + Rhonchi. No rales.Chest wall: No tender ness or deformity. No Accessory muscle use.Heart: Regular rate and rhythm, no murmur, rub or gallop.Abdomen: Soft, non-tender. Not distended. Bowel sounds normal. No massesExtremiti es: Extremities normal, atraumatic, No cyanosis. Contracted,Rt heelwound,stage 2,Rt leg w oundSkin: Texture, turgor normal. No rashes or lesions. Not JaundicedLymph nodes: Cerv ical, supraclavicular normal.Psych: Not depressed. Not anxious or agitated.Neurologic: EOMs intact. No facial asymmetry. Non verbal,contracted,Medications Reviewed:C urrent Facility-Administered MedicationsMedication Dose Route Frequency albuterol-ipratrop ium (DUO-NEB) 2.5 MG-0.5 MG/3 ML 3 mL Nebulization Q6H RT acetylcysteine (MUCOMYST) 100 mg /mL (10 %) nebulizer solution 400 mg 4 mLNebulization TID RT sodium chloride (NS) flush 5-10 mL 5-10 mL IntraVENous PRN budesonide (PULMICORT) 500 mcg/2 ml nebulizer suspension 500 m cg NebulizationBID cinacalcet (SENSIPAR) tablet 60 mg 60 mg Oral DAILY ALPRAZolam (XANAX) ta blet 0.25 mg 0.25 mg Per G Tube QID PRN lamoTRIgine (LaMICtal) tablet 50 mg 50 mg Per G Tub e BID multivitamin (ONE A DAY) tablet 1 Tab 1 Tab Per G Tube DAILY valproic acid (as sodi um salt) (DEPAKENE) 250 mg/5 mL (5 mL) oral solution 750mg 750 mg Oral Q12H sodium chloride (NS) flush 5-40 mL 5-40 mL IntraVENous Q8H sodium chloride (NS) flush 5-40 mL 5-40 mL Int raVENous PRN acetaminophen (TYLENOL) tablet 650 mg 650 mg Oral Q4H PRN heparin (porcine) i njection 5,000 Units 5,000 Units SubCUTAneous Q12H 0.9% sodium chloride infusion 100 mL/hr IntraVENous CONTINUOUS pantoprazole (PROTONIX) granules for oral suspension 40 mg 40 m g Per NG tubeACB ondansetron (ZOFRAN) injection 4 mg 4 mg IntraVENous Q6H PRN cefepime (MAXI PIME) 2 g in 0.9% sodium chloride (MBP/ADV) 100 mL MBP 2 gIntraVENous Q8H methylPREDNISolone (PF) (Solu-MEDROL) injection 40 mg 40 mg IntraVENous Q8H insulin lispro (HUMALOG) injection SubCUTAneous AC&HS dextrose 40% (GLUTOSE) oral gel 1 Tube 15 g Oral PRN glucagon (GLUCAGE N) injection 1 mg 1 mg SubCUTAneous PRN dextrose (D50) infusion 25 g 50 mL IntraVENous P RNLabs: Results:Chemistry Recent Labs 10/29/913035 1002/10/1904GL U 113* -- 115* 115*NA 136 -- 136 130*K 4.2 -- 4.6 4.6CL 100 -- 99 91*CO2 35* 37* 32 39*BUN 19* -- 12 10CREA 0.38* -- 0.34* 0.49*CA 8.7 -- 8.9 9.7AGAP 5* -- 10 5*AP 71 -- 65 85TP 6.5 -- 6.0* 7.8ALB 1.9* -- 1.8* 2.4*GLOB 4.6 -- 4.2 5.4*AGRAT 0.4* -- 0.4* 0. 4*CBC w/Diff Recent Labs 02/10/1904WBC 8.8 14.5* 24.1*RBC 3.34* 3.25* 3.96*HGB 10.7* 10.4* 13.2*HCT 34.4* 33.3* 40.8*PLT 287 282 365GRANS 87* -- 89*LY MPH 9* -- 4*EOS 0 -- --Cardiac Enzymes No results for input(s): CPK, CKND1, NESTOR in the las t 72 hours.No lab exists for component: CKRMB, TROIPCoagulation No results for input(s) : PTP, INR, APTT, INREXT, INREXT in the last72 hours.Lipid Panel Lab ResultsComponent V alue Date/Time Cholesterol, total 125 02/09/2019 04:45 AM HDL Cholesterol 62 02/09/2019 04:45 A M LDL, calculated 52 02/09/2019 04:45 AM VLDL, calculated 11 02/09/2019 04:45 AM Trigly ceride 55 02/09/2019 04:45 AM CHOL/HDL Ratio 2.0 02/09/2019 04:45 AMBNP No results for in put(s): BNPP in the last 72 hours.Liver Enzymes Recent Labs TP 6.5ALB 1.9*AP 71SGO T 13*Thyroid Studies Lab ResultsComponent Value Date/Time TSH 1.100 02/09/2019 04:45 AMA 1C Lab ResultsComponent Value Date/Time Hemoglobin A1c 4.4 02/09/2019 04:45 AMUrine AnalysisCol orDate Value Ref Range Dllvdr5302/08/2019 YELLOW YEL FinalAppearanceDate Value Ref Range Stat us02/08/2019 CLEAR CLEAR FinalSpecific gravityDate Value Ref Range Whtymv2502/08/2019 1.008 1 .003 - 1.030 FinalpH (UA)Date Value Ref Range Stqmeu4502/08/2019 7.0 4.6 - 8.0 FinalPr oteinDate Value Ref Range Budozf3702/08/2019 NEGATIVE NEG mg/dL FinalKetoneDate Value Ref Rang e Nwgtzr1102/08/2019 NEGATIVE NEG mg/dL FinalBilirubinDate Value Ref Range Statu 02/08/2019 NEGATIVE NEG FinalBloodDate Value Ref Range Iqjcsv0202/08/2019 NEGATIVE NEG F inalUrobilinogenDate Value Ref Range Kwylfy0102/08/2019 0.2 0.2 - 1.0 EU/dL FinalNitritesDate Va lue Ref Range Ervrxd3202/08/2019 NEGATIVE NEG FinalLeukocyte EsteraseDate Value Ref Ra nge Vqupuj7902/08/2019 NEGATIVE NEG FinalUrine MicroWBCDate Value Ref Range Idataw1701/21 0-3 0 - 5 /hpf FinalRBCDate Value Ref Range Gczwyi4201/21/2019 0-3 0 - 3 /hpf FinalEpi thelial cellsDate Value Ref Range Ozkuht7001/21/2019 0-3 0 - 10 /hpf FinalBacteriaDate Value Ref Range Fjplhk1501/21/2019 NONE NONE /hpf FinalCastsDate Value Ref Range Vaurof7401/21/2019 NONE NO NE /lpf FinalCrystals, urineDate Value Ref Range Bnpepc4301/21/2019 NONE NONE /LPF FinalXR Results (most recent):Results from Hospital Encounter encounter on 02/08/19XR CHEST SNGL V Rob rative AP portable film of the chest clinical indication pneumoniaStudy is compared to previous examination of February 08, 2019. Again noted iscardiac enlargement and a limited insp iration. There has been partial clearingof right mid lung densities. Again noted is an old fr acture of the left clavicle Impression IMPRESSION:Partial clearing right lung d ensities otherwise little changeRadiology/Pathology:Ct Chest Wo ContResult Date: 01/10/2019CT CH EST WO CONT Clinical data: evaluation of pneumonia rt lung. Priors:12/18/2018 Technique: CT scan of the chest was performed from the thoracic inletto below the diaphragm without administrati on of intravenous contrast. Theacquisition data was reviewed in the axial, sagittal and arsalan nal plane.Utilizing silver holloware assembler algorithm the examination was performed to optimizeima ging quality by utilizing the lowest possible radiation dose. Findings: Thereis no donna dence of pathological lymphadenopathy within the mediastinum, bilateralhilar and bilatera l axillary location. There is a 1.8 cm nodule along the rightwall of the trachea at the leve l of the thoracic inlet (best seen on image 13ofseries 2) not seen on the prior study. This ma y be due to a mucous plug. Noadditional endotracheal or endobronchial lesion is noted.Normal heart size.Coronary artery calcifications noted. Atherosclerotic thoracic aorta withoutan eurysmal dilatation. Evaluation lung windows demonstrates patchy right lowerlobe lung infiltrate. There is associated small right pleural effusion similarto prior. There is also small left pleural effusion with underlying passiveatelectasis slightly decreased fr om the prior study. No new lung pathology isobserved. Included upper abdominal organs: No sign ificant pathology is observedwithin the visualized upper abdominal organs.IMPRESSION: Small bilateral pleural effusion. Right effusion is similar toprior study. Left effusion sl ightly decreased in size. Patchy right lungopacities which may be due to pneumonia similar to previous examinations. 1.8cm nodule along the right lateral wall of the trachea at the level of thethoracic inlet not observed on the prior study and can be due to a mucous plug.Ct Chest W Cont F/uResult Date: 01/15/2019CT CHEST W CONT F/U Clinical data: R U L NODULE NEAR TRAC HEA / BLOOD VESSEL.Priors: 01/10/2019. Technique: CT scan of the chest was performed from the thoracic inlet to below the diaphragm following administration of intravenouscontrast. The acquisition data was reviewed in the axial, sagittal and coronalplane. 100 cc of low osmolar iodinated contrast-isovue 300 was injectedintravenously for the examinatio n. Utilizing silver holloware assembler algorithm theexamination was performed to optimize imaging quality by utilizing the lowestpossible radiation dose. Findings: There is no evidence of pathol ogicallymphadenopathy within the mediastinum, bilateral hilar and bilateral axillarylo cation. There is no evidence of a central endobronchial or an endotrachealmass. Pr eviously seen nodule along the right lateral wall of the trachea nolonger visualized. This m ay have represented a mucus lung which has dislodged.Coronary artery calcifications noted. Atherosclerotic thoracic aorta withoutaneurysmal dilatation. Elevated l eft hemidiaphragm. There is a small leftpleural effusion with underlying passive atelect atic changes similar to priorstudy. Improved previously seen right lower lobe lung in filtrate. There isassociated small right pleural effusion similar to prior examination. No newlung pathology is observed. Included upper abdominal organs: No significantpatholog y is observed within the visualized upper abdominal organs.IMPRESSION: 1. Previously seen t neetu nodule is no longer visualized. 2.Small left pleural effusion with underlying passive atelectatic changes similarto prior study. Stable elevation of the left hemidiaphragm. 3. Stable smallright pleural effusion. Interval improvement in the right lower lobe lung infiltrate. No new lung findings seen.Xr Chest PortResult Date: 02/08/2019XR CHEST PORT Clinical data: Sepsis Priors: 01/21/2019. Findings: The heart sizeis unchanged. Limited ins piration with right basilar lung opacities which canbe due to pneumonia. Slightly elevated lef t hemidiaphragm with left basilaratelectasis. No evidence of CHF or large pleural effusio n. Patient's downwardpointing chain obscures the right lung apex. There is an old healed leftclavicle fracture.IMPRESSION: Right lower lobe parenchymal opacities which can be due t opneumonia. Left basilar atelectatic changes in the juxtadiaphragmatic location.Limited insp iration compromises evaluation.Xr Chest PortResult Date: 01/21/2019Referring Physician: CHASITY Patient Name: EVELIO CARLIN THIS IS AFINAL REPORT FROM [facility] DATE OF SERVICE: 2019-01-21 22:23:43 IMAGES: 1EXAM: XY CHEST PORTABLE HISTORY: Rule out sepsis COMPARISON: Chest x-ray 01/17/19FINDINGS: The patient is rotated and obliquely positioned Ther e is no airspaceconsolidation. No pneumothorax. Persistent small bilateral pleural effus ions Thecardiac silhouette appears grossly stable. Limited assessment secondary topositioni ng and partially obscured heart borders The bones are demineralized.Limited visualization of t he thoracic spineIMPRESSION: Persistent small bilateral pleural effusions No radiograp hicevidence of acute airspace process THIS DOCUMENT HAS BEEN ELECTRONICALLY SIGNEDJohn Diogo Cole MD 01/21/2019 22:46 EST M.D. Please call Imaging On [phone] ([phone]) with questions. This report was electronically signedby: Noel Cole MD 019 10:48 PMXr Chest PortResult Date: 01/17/2019Portable chest x-ray. PRIOR EXA M: X-ray 01/10/2019 HISTORY: Hypoxia FINDINGS: Theheart is normal in size. The mediastinum and p ulmonary vessels are unremarkable.There is no acute infiltrate. The bony structures are inta ct.IMPRESSION: No acute pulmonary disease. There is very limited visualization ofthe right l eunice due to patient positioning.Xr Chest PortResult Date: 01/10/2019XR CHEST PORT Clinical da ta: Sepsis Priors: 12/29/2018. Findings: Examination iscompromised due to limited inspiration and patient rotation. Heart size isunchanged. Haziness seen at the right lung base can be due to small effusionwith atelectasis/infiltrate. No confluent left lung process is seen. Noevidence of CHF.IMPRESSION: Limited study. Suspect right lung base process which may be due tosmall effusion with atelectasis/infiltrate.Duplex Lower Ext Venous BilatResult Date: 2018HISTORY: swelling to lower extremities TECHNIQUE: Bilateral lower extremityvenous Doppler ultrasound Using real time and color- flow Doppler as well asspectral analysis and ultrasound examination was performed of the lowerextremities bilaterally. FINDINGS: On the right side the common femoral vein,superficial femoral vein along its entire course, as well as popl iteal vein allappeared widely patent, were easily compressible, showed normal spontaneousf low. The calf veins were not visualized due to body habitus. On the left sidethe common femo ral vein, superficial femoral vein along its entire course, aswell as popliteal vein all kanika eared widely patent, were easily compressible, andshowed normal spontaneous flow. The c evelin veins were not visualized due to bodyhabitus.IMPRESSION: Normal bilateral lower extremity venous Doppler ultrasound with noevidence of deep vein thrombosis.No re sults found for this or any previous visit.Results from Hospital Encounter encounter on CT CHEST W CONT F/U Narrative CT CHEST W CONT F/UClinical data: R U L NODULE NEAR T RACHEA / BLOOD VESSEL.Priors: 01/10/2019.Technique: CT scan of the chest was performed from the thoracic inlet to belowthe diaphragm following administration of intravenous contrast. The acquisitiondata was reviewed in the axial, sagittal and coronal plane. 100 cc of lo wosmolar iodinated contrast-isovue 300 was injected intravenously for theexamination. Utiliz ing silver holloware assembler algorithm the examination was performed tooptimize imaging quality by utilizing the lowest possible radiation dose.Findings: There is no evidence of pathological lym phadenopathy within themediastinum, bilateral hilar and bilateral axillary location. There is noevidence of a central endobronchial or an endotracheal mass. Previously seennodule along the right lateral wall of the trachea no longer visualized. Thismay have represented a mucus lung which has dislodged. Coronary arterycalcifications noted. Atheroscler otic thoracic aorta without aneurysmaldilatation.Elevated left hemid iaphragm. There is a small left pleural effusion withunderlying passive atelectatic singleton es similar to prior study. Improvedpreviously seen right lower lobe lung infiltrate. There is associated smallright pleural effusion similar to prior examination. No new lung patholog y isobserved.Included upper abdominal organs: No significant pathology is observed within thevisualized upper abdominal organs. Impression IMPRESSION:1. Previously seen tracheal nodule is no longer visualized.2. Small left pleural effusion with underlying passive atelect atic changessimilar to prior study. Stable elevation of the left hemidiaphragm.3. Stable sma ll right pleural effusion. Interval improvement in the rightlower lobe lung infiltrate. No new lung findings seen.EKG:Results for orders placed or performed during the hospital encount er of 02/08/19EKG, 12 LEAD, INITIALResult Value Ref Range Ventricular Rate 97 BPM Atrial Rat e 97 BPM P-R Interval 148 ms QRS Duration 89 ms Q-T Interval 333 ms QTC Calculation (Bezet) 423 ms Calculated P [place] 38 degrees Calculated R [place] 17 degrees Calculated T [place] 28 degrees Diagnosis Sinus rhythmLow voltage, precordial leadsAssessment1. SOB2. COPD AC3. RLL PN EUMONIA4. ELROY EFFUSION5. R/O SEPSIS6. HYPONATREMIA7. AC ON CHRONIC HYPOXIC RESP FAILURE8. MEN KRYSTIAN RETARDATION9. CHRONIC [id number]. AMS/METABOLIC [id number]. Lung nod ule to f/uHospital Problems Date Reviewed: 02/09/2019 Codes Class Noted POA Pressure inj ury of right heel, stage 2 (HCC) ICD-10-CM: L89.612ICD-9-CM: 707.07, 707.22 019 Yes Leg wound, right, initial encounter ICD-10-CM: S81.484JOJB-0-KA: 894.0 02/09/2019 Yes SOB (shortness of breath) ICD-10-CM: R06.02ICD-9-CM: 786.05 02/08/2019 UnknownPlan1. BD2. IV ANTX[CEFEPIME]3. CHECK C/S4. BD5. MUCOMIST6. F/u labs7. pulm f/uMy assessment, plan of ca re, findings, medications, side effects etc werediscussed with:[X]nursing [ ]PT/OT[ ]respiratory therapy [ ][ ]family [ ]PatientRachel Devang MD [facility] Flintobe r [id number]:[id number] PMThe billing code submitted in association with this evaluation also in cludes thetime to review patient's prior records, communicate with the nursing & physician teams, obtain corroborating data, and discuss the risk and benefits of theproposed management p frantz with the patient and their family >30 minutes. Name Value Range Interpretation Code Description Data Harriett rce(s) Supporting Document(s ) ID Date Data Source [id number] 02/10/2019 12:03:56 PM EDT [facility] Problem: Pressure Injury - Risk ofGoal: *Prevention of pressure injuryDescriptionDocument Butch Scale a nd appropriate interventions in the flowsheet.Outcome: Progressing Towards G oalNote:Pressure Injury Interventions:Sensory Interventions: Turn and reposition appro x. every two hours (pillows andwedges if needed)Moisture Interventions: Minimize layers, Apply protective barrier, creams andemollientsActivity Interventions: PT/ OT evaluation, Pressure redistributionbed/mattress(bed type)Mobi lity Interventions: Turn and reposition approx. every two hours(pillow andwedges ), HOB 30 degrees or lessNutrition Interventions: Offer support with meals, snacks and hydration, Documentfood/fluid/supplement intakeFric tion and Shear Interventions: Minimize layers, HOB 30 degrees or less Name Value Range Interpretation Code Description Data Harriett rce(s) Supporting Document(s ) ID Date Data Source [id number] 02/10/2019 11:08:58 AM EDT [facility] Name Value Range Interpretation Description Data Sup porting Code Source(s) Document(s ) Glucose 114 MG/DL 65-110 Above high normal [facility] - Good [Mass/volume] Taoist in Blood by [facility] Automated test strip ID Date Data Source [id number] 02/10/2019 07:34:32 AM EDT [facility] Bedside and Verbal shift change report carol Baker RN (oncoming nurse) Bev RN (offgoing nurse). Report included the fo llowing information SBAR, ORSummary, Procedure Summary and Intake/Output. Name Value Range Interpretation Code Description Data [facility] rce(s) Supporting Document(s ) ID Date Data Source [id number] 02/10/2019 07:45:42 AM EDT [facility] Name Value Range Interpretation Description Data Sup porting Code Source(s) Document(s ) Glucose 106 MG/DL 65-110 [facility] - Good [Mass/volume] Taoist in Blood by [facility] Automated test strip ID Date Data Source [id number] 02/10/2019 05:00:46 AM EDT [facility] Name Value Range Interpretation Description Data Sup porting Code Source(s) Document(s ) Sodium 136 136-145 [facility] - [Moles/volume] in mmol/L [facility] Serum or Plasma [facility] Potassium 4.2 3.5-5.1 [facility] - [Moles/volume] in mmol/L [facility] Serum or [facility] Chloride 100 98-107 [facility] - [Moles/volume] in mmol/L [facility] Serum or [facility] Carbon dioxide, 35 21-32 Above high [facility] - total mmol/L normal Good [Moles/volume] in Taoist Serum or Plasma [facility] Anion gap in Serum 5 10-20 Below low normal [facility] - or Plasma mmol/L [facility] Glucose 113 74-106 Above high [facility] - [Mass/volume] in mg/dL normal Good Serum or Plasma [facility] Urea nitrogen 19 7-18 Above high [facility] - [Mass/volume] in mg/dL normal Good Serum or Plasma [facility] Creatinine 0.38 0.70-1. Below low normal [facility] - [Mass/volume] in mg/dL 30 Good Serum or Plasma [facility] Glomerular >60 [facility] - filtration Good rate/1.73 sq M Taoist predicted among Hospital blacks [Volume Rate/Area] in Serum or Plasma by Creatinine-based formula (MDRD) Glomerular >60 [facility] - filtration Good rate/1.73 sq M Taoist predicted among Hospital non-blacks [Volume Rate/Area] in Serum or Plasma by Creatinine-based formula (MDRD) Calcium 8.7 8.5-10. [facility] - [Mass/volume] in mg/dL 1 [facility] Serum or Plasma [facility] Bilirubin.total 0.2 0.2-1.0 [facility] - [Mass/volume] in mg/dL Good Serum or Plasma [facility] Alanine 7 U/L 13-61 Below low normal [facility] - aminotransferase Good [Enzymatic Taoist activity/volume] in Hospital Serum or Plasma Aspartate 13 U/L 15-37 Below low normal [facility] - aminotransferase Good [Enzymatic Taoist activity/volume] in Hospital Serum or Plasma by With P-5'-P Alkaline 71 U/L 45-117 [facility] - phosphatase Good [Enzymatic Taoist activity/volume] in Hospital Serum or Plasma Protein 6.5 6.4-8.2 [facility] - [Mass/volume] in g/dL Good Serum or Plasma [facility] Albumin 1.9 3.5-4.7 Below low normal [facility] - [Mass/volume] in g/dL Good Serum or Plasma by Taoist Bromocresol [facility] ([facility]) dye binding method Globulin 4.6 1.7-4.7 [facility] - [Mass/volume] in g/dL Good Serum by [facility] Albumin/Globulin 0.4 0.7-2.8 Below low normal [facility] - [Mass Ratio] in Good Serum or Plasma [facility] ID Date Data Source [id number] 02/10/2019 05:00:46 AM EDT [facility] - [facility] Hospital Name Value Range Interpretation Description Data Sup porting Code Source(s) Document(s ) Magnesium 1.9 mg/dL 1.6-2.6 [facility] - [facility] [Mass/volume] Taoist in Serum or Hospital Plasma ID Date Data Source [id number] 02/10/2019 04:49:04 AM EDT [facility] - [facility] Hospital Name Value Range Interpretation Description Data Sup porting Code Source(s) Document(s ) Leukocytes 8.8 K/uL 4.8-10.6 [facility] - [#/volume] in Good Blood by Taoist Automated count [facility] Erythrocytes 3.34 4.70-6.0 Below low normal [facility] - [#/volume] in M/uL 0 Good Blood by Taoist Automated count [facility] Hemoglobin 10.7 14.0-18. Below low normal [facility] - [Mass/volume] in g/dL 0 Good Blood [facility] Hematocrit 34.4 % 42.0-52. Below low normal [facility] - [Volume 0 Good Fraction] of Taoist Blood by Hospital Automated count Erythrocyte mean 103.0 FL 81.0-94. Above high normal [facility] - corpuscular 0 Good volume [Entitic Taoist volume] by Hospital Automated count Erythrocyte mean 32.0 PG 27.0-35. [facility] - corpuscular 0 Good hemoglobin Taoist [Entitic mass] [facility] by Automated count Erythrocyte mean 31.1 30.7-37. [facility] - corpuscular g/dL 3 Good hemoglobin Taoist concentration [facility] [Mass/volume] by Automated count Erythrocyte 15.6 % 11.5-14. Above high normal [facility] - distribution 0 Good width [Ratio] by Taoist Automated count [facility] Platelets 287 K/uL 130-400 [facility] - [#/volume] in Good Blood by Taoist Automated count [facility] Platelet mean 9.0 FL 9.2-11.8 Below low normal [facility] - volume [Entitic Good volume] in [facility] by Automated Hospital count Segmented 87 % 48.0-72. Above high normal [facility] - neutrophils/100 0 Good leukocytes in [facility] Lymphocytes/100 9 % 18.0-40. Below low normal [facility] - leukocytes in 0 [facility] Monocytes/100 4 % 2.0-12.0 [facility] - leukocytes in [facility] Eosinophils/100 0 % 0.0-7.0 [facility] - leukocytes in [facility] Basophils/100 0 % 0.0-3.0 [facility] - leukocytes in [facility] Segmented 7.6 K/UL 1.5-6.6 Above high normal [facility] - neutrophils Good [#/volume] in [facility] Lymphocytes 0.8 K/UL 1.5-3.5 Below low normal [facility] - [#/volume] in [facility] Monocytes 0.3 K/UL 0.0-1.0 [facility] - [#/volume] in [facility] Eosinophils 0.0 K/UL 0.0-0.7 [facility] - [#/volume] in [facility] Basophils 0.0 K/UL 0.0-0.1 [facility] - [#/volume] in [facility] Differential [facility] - cell count Good method - [facility] Immature 0 % 0.0-2.0 [facility] - granulocytes/100 Good leukocytes in [facility] by Hospital Automated count ID Date Data Source [id number] 02/09/2019 08:53:27 PM EDT [facility] - [facility] Name Value Range Interpretation Description Data Sup porting Code Source(s) Document(s ) Glucose 110 MG/DL 65-110 [facility] - [facility] [Mass/volume] Taoist in Blood by [facility] Automated test strip ID Date Data Source [id number] 02/09/2019 07:04:40 PM EDT [facility] - [facility] Bedside and Verbal shift change report carol Conner (oncoming nurse) by dara (offgoing nurse). Report carol phma with SBAR, Intake/Output, MAR, RecentResults and Med Rec Status. Name Value Range Interpretation Code Description Data Harriett rce(s) Supporting Document(s ) ID Date Data Source [id number] 02/09/2019 06:37:35 PM EDT [facility] Infectious Disease ConsultToday's Date: 02/09/2019Admit Date: 02/08/2019Subjective:Date of Consultatio n: February 09, 2019Referring Physician: Lisy Gonzalez is a 68 y.o. male who is being seen for pneumonia.Patient with historyof mental retardation,aspiration pneumonia,dysphagia,COPD,s/p pegplacement,schizophrenia,parkinson's d isease was transferred from the [facility] for respiratory distress, low oxygen sat uration and increasinglethargy.Patient is non verbal,unable to provide history.History obtained fromchart review.Patient Active Problem ListDiagnosis Code Paraesophage al hiatal hernia K44.9 COPD (chronic obstructive pulmonary disease) ([facility]) J44 .9 Acute respiratory distress R06.03 Pneumonia J18.9 COPD exacerbation ([facility]) J44.1 Sepsis due to undetermined organism ([facility]) A41.9 Generalized anxiety disorde r F41.1 Acute respiratory failure with hypoxia ([facility]) J96.01 Pneumonia involvin g right lung J18.9 Hyponatremia E87.1 SOB (shortness of breath) R06.02 Pressure i njury of right heel, stage [address]) L89.612 Leg wound, right, initial encounter S81. 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)History reviewed. No pertinent family history.Social Histo ryTobacco Use Smoking status: Never Smoker Smokeless tobacco: Never UsedSubstance U se Topics Alcohol use: NoPast Surgical History:Procedure Laterality Date HX GA STROSTOMY PEG- replaced 11/2018Prior to Admission medicationsMedication Sig Star t Date End Date Taking? Authorizing Providermultivitamin (MULTI-DELYN, WELLE SSE) liqd 5 mL by Per G Tube route daily. YesProvider, Historicalvalproic acid, as sodium salt, (DEPAKENE) 250 mg/5 mL (5 mL) soln oral rendtwuh069 mg by Per G Tube r oute every twelve (12) hours. Yes Provider, Historicalacetylcysteine (MUCOMYST) 100 mg/mL (10 %) nebulizer solution Take 4 mL byinhalation two (2) times a day. Yes Provider, Historicalzinc oxide 10 % topical cream Apply to affected area daily. Rib bon around GTsite Yes Provider, Historicalomeprazole (PRILOSEC) 2 mg/mL susp 2 mg/mL oral suspension (compounded) 40 mg byPer G Tube route daily. Yes Provi bassem, Historicalsilver sulfADIAZINE (SILVADENE) 1 % topical cream Apply to affected area two(2) times a day. 1 inch ribbon- right edge Yes Provider, Histo ricalcholestyramine-aspartame (QUESTRAN LIGHT) 4 gram packet Take 1 Packet by mo uthtwo (2) times a day.Patient taking differently: 4 g two (2) times a day. Vi a G tube. 01/24/19 YesMili Hills DOclorazepate (TRANXENE) 3.75 mg tablet 1 Tab by Per G Tube route nightly. MaxDaily Amount: 3.75 mg. 12/30/18 Yes Maryam Hills DOcinacalcet (SENSIPAR) 30 mg tablet Take 2 Tabs by mouth daily.Patient takin g differently: 60 mg daily. Via G tube 12/30/18 Yes Mili Hills DOlamoTRIfatemeh ne (LAMICTAL) 25 mg tablet 2 Tabs by Per G Tube route two (2) times aday. 12/30/18 Yes Mili Hills DOalbuterol-ipratropium (DUO-NEB) 2.5 mg-0.5 mg/3 ml nebu 3 mL b y Nebulizationroute every six (6) hours. Every 6 hours while awake 12/30/18 Yes Mili Brooks DObudesonide (PULMICORT) 0.5 mg/2 mL nbsp 2 mL by Nebulization route two (2) timesa day. 12/30/18 Yes Mili Hills DOacetaminophen (TYLENOL) 32MG/ ML soln solution Take 20.3 mL by mouth every four(4) hours as needed for Pain or Feve r. 01/24/19 Mili Hills Trudy vaccine 2019-20, 65 yrs+,,PF, (FLUZONE H IGH-DOSE) syrg injection 0.5mL by IntraMUSCular route PRIOR TO DISCHARGE. 01/24/19 Mili Hills DObacitracin 500 unit/gram ointment Apply 1 Packet to aff ected area two (2) timesa day. Indications: minor skin infection due to bacteria, fa cial scabs 12/30/18Mili Hills DONo Known AllergiesReview of SystemsPatient is maria isabel ble to provideObjective:Visit VitalsBP 105/62 (BP 1 Location: Right arm, BP Patient Po sition: At rest)Pulse 83Temp 98.6 F (37 C)Resp 20Ht 5' 2" (1.575 m)Wt 59.1 kg (1 30 lb 3.2 oz)SpO2 91%BMI 23.81 kg/m Temp (24hrs), Av.8 F (36.6 C), Min:97.2 F (36.2 C), Max:98.6 F (37 C)Lines: Peripheral IV:Physical Exam:General: Aw radhames nonnverbal, cooperative, no distress, appears stated age.Eyes: Conjunctivae/c orneas clear. PERRLMouth/Throat: Dry oral mucosa,Neck: Supple, symmetrical, trache a midline, no adenopathyLungs: Bilateral breath sounds with basal crackles.Heart: Regular rate and rhythm, S1, S2 normal, no murmurAbdomen: Soft, non-tender. Bowel sounds normal. No masses, Noorganomegaly.+feeding tube.Back: No CVA tenderness.Extremities: Contracted, no cyanosis,chronic lymphedemaPulses: 2+ an d symmetric all extremities.Skin: Skin color, texture, turgor normal. No rashes or les ionsLymph nodes: Cervical, supraclavicular, and axillary nodes normal.Neurologic: Aw radhames non verbal,functiona quadriplegia.Data Review:Labs:Recent Results (from the pas t 24 hour(s))LACTIC ACID Collection Time: 02/08/19 10:10 PMResult Value Ref Range Lactic acid 1.7 0.4 - 2.0 MMOL/LGLUCOSE, POC Collection Time: 02/08/19 10:23 PMResult Value Ref Range Glucose, bedside 108 65 - 110 MG/DLLEGIONELLA PNEUMOPHILA AG, URIN E Collection Time: 02/08/19 11:30 PMResult Value Ref Range Legionella Ag, urine NEG ATIVE Method IMMUNOCHROMATOGRAPHIC MEMBRANE ASSAYCBC W/O DIFF Collection Time: 02/09 4:45 AMResult Value Ref Range WBC 14.5 (H) 4.8 - 10.6 K/uL RBC 3.25 (L) 4.70 - 6.00 M/uL HGB 10.4 (L) 14.0 - 18.0 g/dL HCT 33.3 (L) 42.0 - 52.0 % MCV 102.5 (H) 81. 0 - 94.0 FL MCH 32.0 27.0 - 35.0 PG MCHC 31.2 30.7 - 37.3 g/dL RDW 15.9 (H) 11.5 - 14. 0 % PLATELET 282 130 - 400 K/uL MPV 8.9 (L) 9.2 - 11.8 FLHEMOGLOBIN A1C W/O EAG Manuel ection Time: 02/09/19 4:45 AMResult Value Ref Range Hemoglobin A1c 4.4 4.2 - 6.3 % HEPATIC FUNCTION PANEL Collection Time: 02/09/19 4:45 AMResult Value Ref Range Bilirubin, total 0.2 0.2 - 1.0 mg/dL Bilirubin, direct <0.1 0 - 0.2 mg/dL ALT (SGPT) 9 (L) 13 - 61 U/L AST (SGOT) 13 (L) 15 - 37 U/L Alk. phosphatase 65 45 - 117 U/L Protein, total 6.0 (L) 6.4 - 8.2 g/dL Albumin 1.8 (L) 3.5 - 4.7 g/dL Globulin 4.2 1.7 - 4.7 g/dL A-G Ratio 0.4 (L) 0.7 - 2.8LIPID PANEL Collection Time: 02/09/19 4:45 AMResult Value Ref Range Cholesterol, total 125 <200 mg/dL Triglyceride 55 <15 0 mg/dL HDL Cholesterol 62 >40 mg/dL LDL, calculated 52 <100 MG/DL VLDL, calculate d 11 <38 MG/DL CHOL/HDL Ratio 2.0 0.0 - 4.5MAGNESIUM Collection Time: 02/09/19 4:45 AMResult Value Ref Range Magnesium 1.6 1.6 - 2.6 mg/dLMETABOLIC PANEL, BASIC Co llection Time: 02/09/19 4:45 AMResult Value Ref Range Sodium 136 136 - 145 mmol/L Po tassium 4.6 3.5 - 5.1 mmol/L Chloride 99 98 - 107 mmol/L CO2 32 21 - 32 mmol/L Anion g ap 10 10 - 20 mmol/L Glucose 115 (H) 74 - 106 mg/dL BUN 12 7 - 18 mg/dL Creatinine 0.3 4 (L) 0.70 - 1.30 mg/dL GFR est AA >60 >60 ml/min/1.73m2 GFR est non-AA >60 >60 ml/ min/1.73m2 Calcium 8.9 8.5 - 10.1 mg/dLPHOSPHORUS Collection Time: 9 4:45 AMResult Value Ref Range Phosphorus 2.8 2.5 - 4.9 mg/dLTSH 3RD GENERATION Co llection Time: 02/09/19 4:45 AMResult Value Ref Range TSH 1.100 0.360 - 3.740 uIU/mL URIC ACID Collection Time: 02/09/19 4:45 AMResult Value Ref Range Uric acid 3.8 3 .5 - 7.2 mg/dLGLUCOSE, POC Collection Time: 02/09/19 8:39 AMResult Value Ref Range Glucose, bedside 128 (H) 65 - 110 MG/DLGLUCOSE, POC Collection Time: 02/09 11:14 AMResult Value Ref Range Glucose, bedside 137 (H) 65 - 110 MG/DLBLOOD GAS, ARTERIAL Collection Time: 02/09/19 2:14 PMResult Value Ref Range pH 7.42 7.35 - 7.45 PCO2 55 (H) 32 - 48 mmHg PO2 59 (L) 83 - 108 mmHg CO2, TOTAL 37 (H) 19 - 24 mmol/ L BICARBONATE 36 (H) 21 - 28 mmol/L O2 SAT 93 (L) 94 - 98 % BASE EXCESS 9.3 (H) 0 - 3 mmol/L SITE RIGHT RADIAL MIRANDA'S TEST POSITIVE DEVICE NASAL O2 O2 FLOW 4 L/min Performed by [id number], POC Collection Time: 02/09/19 4:46 PMResult Value Ref Range Glucose, bedside 120 (H) 65 - 110 MG/DLMicrobiology:Cultures:Lab ResultsCo mponent Value Date/Time Culture result: NO GROWTH AFTER 17 HOURS 02/08/2019 05:19 P M Culture result: NO GROWTH AFTER 17 HOURS 02/08/2019 05:00 PM Culture result: NO G ROWTH 5 DAYS 01/21/2019 11:30 PMImaging:Xr Chest Sngl VResult Date: 02/09/2019AP po rtable film of the chest clinical indication pneumonia Study is compared toprevious e xamination of February 08, 2019. Again noted is cardiac enlargement curtis limited insp iration. There has been partial clearing of right mid lungdensities. Again noted is an old fracture of the left clavicleIMPRESSION: Partial clearing rig ht lung densities otherwise little changeXr Chest Sngl VResult Date: 12/25/2018Portab le chest x-ray. PRIOR EXAM: X-ray 12/18/2018 HISTORY: Pneumonia FINDINGS:The heart is normal in size. The mediastinum and pulmonary vessels areunremarkable. There is a small right pleural effusion.. A tube projected overthe left upper quadrant of the abdomen..IMPRESSION: Small right pleural effusion.Xr Chest Sngl VResult Date: 11/13AP portable film of the chest clinical indication pneumonia Study is compared t oprevious examination of November 22, 2018. Study demonstrates a left pleuraleffusio n as well as infiltrate at the left base. This was present on previousstudy. There has been interval development of a small right pleural effusionwith linear streak ing at the right base this may represent infiltrate oratelectasis. Heart size dif ficult to evaluate.IMPRESSION: Infiltrate left base with pleural effusion, right p leural effusionwith streaking at right lower lung field which may represent infiltrat e oratelectasisXr Chest Sngl VResult Date: 11/22/2018History: PNEUMONIA Technique: P ortable chest x-ray 11/22/2018 8:03 AM Comparison:11/21/2018. FINDINGS: The exam is rotated. There is a small left pleural effusionwith probable infiltrate or atel ectasis. There is improved aeration of the rightlung since the prior. Evaluation of the cardiac silhouette is limited byprojection. The visualized osseous str uctures appear unremarkable.IMPRESSION: There is a small left pleural effusion with pr obable infiltrate oratelectasis. There is improved aeration of the right lung sinc e the prior.Xr Abd (kub)Result Date: 11/22/2018EXAM: XR ABD (KUB) INDICATION: ileus COMPARISON: None. FINDINGS: A supineradiograph of the abdomen shows a normal bowel gas pattern. No soft tissuemasses or pathologic calcification s are identified. The bones and soft tissuesare within normal limits. There i s moderate fecal material overlying the pelvis.There are skin kalpana along the midline.IMPRESSION: No dilated loops of bowel are identified to suggest obstruction.Xr Abd (kub)Result Date: 11/19/2018XR ABD (KUB)-SINGLE VIEW PRIOR: None HISTORY: E valuate for G-tube placementFINDINGS: The examination is limited-the pt is in an R AO/LPO position. A tubeoverlies the abdomen extending from the right lower quadrant to the left upperquadrant and whether this represents a gastric tube cannot be defi nitivelydetermined. The bowel gas pattern is nonspecific. No abnormally dilated loop ofbowel, bowel wall thickening, pneumatosis or free air is identified. No abnormalde nsities or calcifications are identified. There are midline surgical skinstaples i dentified. The visualized osseous structures are unremarkable.IMPRESSION: 1. Tube ov erlying the abdomen terminating in the region of stomach;as described and discussed ab ove on this single oblique view the exact locationof this tube cannot be determine d. 2. Otherwise unremarkable abdomen/KUB.Ct Chest Wo ContResult Date: 01/10/2019CT CH EST WO CONT Clinical data: evaluation of pneumonia rt lung. Priors:12/18/2018 Techn ique: CT scan of the chest was performed from the thoracic inletto below the diaphragm without administration of intravenous contrast. Theacquisition data was revie wed in the axial, sagittal and coronal plane.Utilizing silver holloware assembler algorithm t he examination was performed to optimizeimaging quality by utilizing the lowest possible radiation dose. Findings: Thereis no evidence of pathological lymp hadenopathy within the mediastinum, bilateralhilar and bilateral axillary lo cation. There is a 1.8 cm nodule along the rightwall of the trachea at the level of the thoracic inlet (best seen on image 13ofseries 2) not seen on the prior stud y. This may be due to a mucous plug. Noadditional endotracheal or endobronchi al lesion is noted.Normal heart size.Coronary artery calcifications noted. Atheroscle rotic thoracic aorta withoutaneurysmal dilatation. Evaluation lung windows demo nstrates patchy right lowerlobe lung infiltrate. There is associated small ri ght pleural effusion similarto prior. There is also small left pleural effusion with underlying passiveatelectasis slightly decreased from the prior study. No new lung pathology isobserved. Included upper abdominal organs: No significant patholo gy is observedwithin the visualized upper abdominal organs.IMPRESSION: Small bilat eral pleural effusion. Right effusion is similar toprior study. Left effusion sl ightly decreased in size. Patchy right lungopacities which may be due to pneumo freddy similar to previous examinations. 1.8cm nodule along the right lateral wall of t he trachea at the level of thethoracic inlet not observed on the prior study and can be due to a mucous plug.Ct Chest Wo ContResult Date: 12/18/2018Referring Physi chaya: KRYSTIAN MONAE Patient Name: EVELIO CARLIN THIS IS AFINAL REPORT FROM [facility] DATE OF SERVICE: 2018-12-18 01:22:40 IMAGES:[id number] EXAM: CT CHEST WO CO NTRAST HISTORY: .. Right lower lobe atelectasis..TECHNIQUE: Helical axial im aging from the thoracic inlet through the adrenalglands without contrast. Sagittal and coronal reconstructions were obtained.COMPARISON: CT chest without co ntrast of 12/13/2018. FINDINGS: .. Evaluationremains limited due to lack of IV contrast and patient positioning. The imagedthyroid gland remains atrophic. Th e aorta remains normal in caliber.Atherosclerotic calcifications a re again seen in the aorta. There is againcardiomediastinal shift towards the right. The heart remains normal in size andno pericardial effusion is noted. No obvious lymphadenopathy seen on thisunenhanced scan. No pneumothorax is noted. Since the prior exam there is beenincrease in bilateral pleural effusi ons with associated consolidations. Acalcified granuloma is again seen in th e right lower lobe. The imaged upperabdomen does not demonstrate any gross acute maggy nges. Osteopenia is again noted.Degenerative changes again seen in the imaged spine. Old healed right posteriorlower rib fractures are again seen.IMPRESSION: .. Limited s tudy demonstrating increase in bilateral pleuraleffusions with associated consoli dations with persistent cardiomediastinal shifttowards the right. Stable findings as noted above.. One or more of the followingdose reduction techniques were used: automated exposure control, adjustment ofthe mA and/or kV according to patient size, use of iterative reconstructivetechnique. THIS DOCUMENT H BEEN ELECTRONICALLY SIGNED Kamran Gillette MD 12/18/2018 04:49 GINA Verde Please call [facility] [employer] [facility] 1.800.TELERAD([phone]) with questions. This report was electronically signed by: Tala MENDEZ 12/18/2018 04: 50 AMCt Chest Wo ContResult Date: 12/13/2018History: Respiratory difficulty . FINDINGS: CT scanning of the chest wasperformed helically from the lung api martine to the upper abdomen withoutintravenous contrast material. Sagittal and coronal reconstructed images aresubmitted. Scanning was performed utilizing dose lowering te chniques and iscompared to the prior study of 11/08/2018. The study is quite limited by patientpositioning. Evaluation of thoracic vascular structures is limited withoutin travenous contrast material does not reveal evidence of aneurysmal dilatationor defi nite CT evidence of dissection. Coronary artery calcification is seen.There is mi nimal calcification of the aortic arch. There is minimalcalcification of the descendin g thoracic aorta. There is no definite evidence ofany pathologically enlarged l ymph node in the visualized portions of themediastinum or axillae. Evaluation of pulmonary parenchymal structures revealssome atelectatic change in the right upper lo be. There is a small left pleuraleffusion as well as left basilar atelectatic change. There is some patchyopacity within the right middle lobe and right lower lobe which c ould also beinfiltrative in nature. Limited evaluation of upper abdominal structures isunremarkable. There is deviation of mediastinal structures to the right. Thi scould be as result of atelectatic change within the right lung. This has beenseen previously and is unchanged.IMPRESSION: Extremely limited study by patient posit ioning. Deviation ofmediastinal structures to the right as has been seen on prior stud ies. Leftpleural effusion. Bilateral infiltrates and atelectasis, greater on the rightthan the left.Cta Up Ext Lt W ContResult Date: 12/18/2018History: Arm cl audication. FINDINGS: CTA of the left upper extremity wasperformed helically from le ricky of the shoulder through the fingers after theintravenous administration of 119 cc of Isovue. Sagittal, coronal, and 3-Dreconstructed images obtained on an RealtimeBoard workstation are submitted. Noprior studies are available for comparison. Th e left subclavian artery is widelypatent. It is continuous with a widely patent left axillary artery. The axillaryartery is continuous with a widely patent left bra chial artery. The brachialartery bifurcates into a radial and ulnar artery just belo w the elbow. From thispoint distally streak artifact from patient positioning limits evaluation.However, the ulnar artery appears widely patent to the wrist. The radial a rteryis less well opacified but does appear patent to the wrist as well. Anintraosse ous artery also appears patent although it is poorly visualized aswell. The digital ar teries are not visualized on this study. There arebilateralpleural effusions note d both of which are moderate to large. Theeffusion on the left one is larger th an the right. Bibasilar atelectatic changethroughout much of the lower lobes is seen. There is a significant shift ofmediastinal structures to the right. T he liver is decreased in attenuationcompatible with fatty infiltr ation. The spleen is unremarkable. The adrenalglands are normal in appearance. The pancreas is grossly normal as is thegallbladder. A gastrostomy tube is no mikel in situ. The kidneys are unremarkable.There is a midline abdomina l wall hernia containing large and small bowel aswell as mesentery without eviden ce of obstruction. There is some presacralthickening and possibly some fr ee fluid noted. The patient is status post ORIFof the left hip with metallic hardwa re in situ.IMPRESSION: Patent left upper extremity arterial vessels although eval uationdistally is limited. Bilateral pleural effusions and bibasilar atelectasis.Shif t of mediastinal structures to the right.Ct Abd Pelv Wo ContResult Date: 12/21/2018His tory: ? Maturity of g-tube tract Technique: CT of the abdomen and pelvis wasperforme d from the dome of the diaphragm to the pubic symphysis without oral orintravenous con trast with dose lowering techniques. Sagittal and coronalreconstructions were performe d. Evaluation of solid abdominal viscera iscompromised by by the lack of intraven ous contrast. Evaluation of the bowelloops is compromised lack of oral contrast. All C T scans at this facility areperformed using dose optimization technique as appropria te to a performed exam,to include automated exposure control, adjustment of the mA a nd/or kV accordingto patient size (including appropriate matching first site-specific examinations), or use of iterative reconstruction technique. Comparison: CT scanof the chest performed 12/19/18 Findings: There is a small right pleural effusionw ith adjacent atelectasis. There is minimal left pleural fluid with adjacentatelecta sis. There is a pigtail catheter again identified on the left. The exactlocatio n of this catheter is difficult to ascertain benefits above the diaphragmto below the diaphragm. On today's study the tip appears to be located below thediaphragm. There is a small right pleural effusion with adjacent atelectasis.There is a G-tube i dentified in the stomach. The liver, gallbladder, spleen,pancreas, kidneys an d adrenal glands are unremarkable. No abdominal, pelvic oringuinal lymphadenop athy is identified. No free intraperitoneal fluid is noted.There is a ventral wall h ernia containing loops of what appear to be small bowelhowever are difficult to foll ow. There is mild perirectal stranding andpresacral edema correlate clinically. No dilated loops of bowel are identified.There is mild diverticulosis of the colon. The prostate, bladder and seminalvesicles appear unremarkable. The re are streak artifact obscuring portions ofthe pelvis due to a left hip ORIF. The re is subcutaneous gas identified alongthe right lower anterior pelvic wall.IMPRESS ION: There is a G-tube identified in the stomach. There is a tailcatheter identif ied on the left. The tip appears to be located below thediaphragm although is d ifficult to assess on CT. There is a small residualamount of pleural fluid as well as atelectasis along the left diaphragm. Thereis perirectal stranding and presacr al edema.Ct Chest W Cont F/uResult Date: 01/15/2019CT CHEST W CONT F/U Clinical da ta: R U L NODULE NEAR TRACHEA / BLOOD VESSEL.Priors: 01/10/2019. Technique: CT scan of the chest was performed from thethoracic inlet to below the diaphragm following administration of intravenouscontrast. The acquisition da ta was reviewed in the axial, sagittal and coronalplane. 100 cc of low osmolar iodi nated contrast-isovue 300 was injectedintravenously for the examinatio n. Utilizing silver holloware assembler algorithm theexamination was performed to optimize imaging quality by utilizing the lowestpossible radiation dose. Findings: There is no evidence of pathologicallymphadenopathy within the m ediastinum, bilateral hilar and bilateral axillarylocation. There is no evidence of a central endobronchial or an endotrachealmass. Previously seen nodule along the right lateral wall of the trachea nolonger visualized. This may have repr esented a mucus lung which has dislodged.Coronary artery calcifications noted. Atherosclerotic thoracic aorta withoutaneurysmal dilatation. Elevated l eft hemidiaphragm. There is a small leftpleural effusion with underlying pas sive atelectatic changes similar to priorstudy. Improved previously seen ri ght lower lobe lung infiltrate. There isassociated small right pleural effusio n similar to prior examination. No newlung pathology is observed. Included upper ab dominal organs: No significantpathology is observed within the visualized upper abd ominal organs.IMPRESSION: 1. Previously seen tracheal nodule is no longer visualized. 2.Small left pleural effusion with underlying passive atelectatic changes s imilarto prior study. Stable elevation of the left hemidiaphragm. 3. Stable small right pleural effusion. Interval improvement in the right lower lobe lunginfiltrate. No new lung findings seen.Ct Thoracentesis Insrt Chest TubeResult Date: 12/19/2018His tory: Pleural effusion. PROCEDURE: After being informed of the risks,benefits, an d potential alternatives procedure informed consent was obtained.The patient was jocelyn riley on the table in the [id number]-omth decubitus position.CT scanning was perfo rmed location was chosen over the left flank. However, dueto the significant amount of patient motion and breathing motion was difficultto accurately assess a location for percutaneous paracentesis. Therefore, thiswas performed manually. After the ch osen region was prepped and draped in thenormal sterile fashion using maximum sterile barrier technique a lidocaineneedle was placed in the skin. This appeared to be in good position. Lidocainewas then used to anesthetize the skin and subcutaneous tissues in this location.Attempts were made to pass an 8 Congolese pigtail catheter thr ough this location.However, patient continuous motion was significant as wel l as excessivebreathing during the procedure. The catheter was placed at the same inte rspaceas well as marked on the prior CT sequence however, due to the excessive p atientmotion the catheter was far more inferior within the chest that on the pr iorsequences. The catheter appeared to enter the hemiabdomen on the left from theleft chest. The catheter was then pulled back to position where clear yellowfluid was asp irated. It was then sewn in position However, It appeared tomigrate forward and on the CT scanning appeared to again transgress thediaphragm. It was therefore pulled ba ck to a point where only a clear fluid wasaspirated and respiratory variation w as noted within the tube. It was then sewnin position using 2-0 silk sutures. FINDING S: Initial CT scanning revealed amoderate left pleural effusion. Attempts to nancy an adequate location forpercutaneous thoracentesis were quite limited due to excessive patient motionand breathing throughout the procedure. A location myrtle t appear to be a safelocation was marked. However, when the catheter was placed in this sameinterspace as well as marked the catheter appeared to be far more inferio rwithin the hemithorax than that seen previously. It appeared to enter the lef themithorax inferiorly and transgress the diaphragm with no evidence pathologicseq uela. Therefore, it was pulled back into the pleural space for adequatedrainage. 130 cc of lightly blood-tinged fluid was aspirated. The catheter wasattached to a Pleur-evac and wall suction.IMPRESSION: Left-sided thoracentesis described above .Xr Chest PortResult Date: 02/08/2019XR CHEST PORT Clinical data: Sepsis Priors: 2018. Findings: The heart sizeis unchanged. Limited inspiration with right basilar l eunice opacities which canbe due to pneumonia. Slightly elevated left hemidiaphragm wit h left basilaratelectasis. No evidence of CHF or large pleural effusion. Patient' s downwardpointing chain obscures the right lung apex. There is an old healed leftc lavicle fracture.IMPRESSION: Right lower lobe parenchymal opacities which can be due t opneumonia. Left basilar atelectatic changes in the juxtadiaphragmatic location.Limit ed inspiration compromises evaluation.Xr Chest PortResult Date: 01/21/2019Refesau g Physician: MONICA GOMEZ Patient Name: EVELIO CARLIN THIS IS AFINAL REPORT FROM [facility] DATE OF SERVICE: 2019-01-21 22:23:43 IMAGES: 1EXAM: XY CH EST PORTABLE HISTORY: Rule out sepsis COMPARISON: Chest x-ray 01/17/19FINDINGS: The patient is rotated and obliquely positioned There is no airspaceconsolida tion. No pneumothorax. Persistent small bilateral pleural effusions Thecardiac s ilhouette appears grossly stable. Limited assessment secondary topositioning and p artially obscured heart borders The bones are demineralized.Limited visualization of t he thoracic spineIMPRESSION: Persistent small bilateral pleural effusions No radiograp hicevidence of acute airspace process THIS DOCUMENT HAS BEEN ELECTRONICALLY SIGNEDJ cecelia Cole MD 01/21/2019 22:46 EST M.D. Please call [facility] On [phone].TELERAD ([phone]) with questions. This report was electronically signedby: Noel Cole MD 01/21/2019 10:48 PMXr Chest PortResult Date: 01/17/2019Portable chest x-ray. PRIOR EXAM: X-ray 01/10/2019 HISTORY: Hypoxia FINDINGS: Theheart is n ormal in size. The mediastinum and pulmonary vessels are unremarkable.There is no acu te infiltrate. The bony structures are intact.IMPRESSION: No acute pulmonary di sease. There is very limited visualization ofthe right lung due to patient position ing.Xr Chest PortResult Date: 01/10/2019XR CHEST PORT Clinical data: Sepsis Priors: 12/29/2018. Findings: Examination iscompromised due to limited inspiration and patient rotation. Heart size isunchanged. Haziness seen at the right lung base can be due to small effusionwith atelectasis/infiltrate. No confluent le ft lung process is seen. Noevidence of CHF.IMPRESSION: Limited study. Suspect right lung base process which may be due tosmall effusion with atelectasis/infilt rate.Xr Chest PortResult Date: 12/29/2018History: leukocytosis Technique : Portable chest x-ray 12/29/2018 11:01 AMComparison: 12/25/2018. FINDINGS: There is a right lower lobe infiltrate oratelectasis which is increased since p rior exam. There is poor inspiration.There is a small left pleural effusion. The exam is rotated. Evaluation of thecardiac silhouette is limited by projection. The visualized osseous structuresappear unremarkable.IMPRESSION: There is a righ t lower lobe infiltrate or atelectasis which isincreased since prior exam.Xr Chest Po rtResult Date: 12/18/2018Portable chest x-ray. PRIOR EXAM: 12/12/2018 and 11/25/2018 HIST ORY: Pneumonia andpleural effusions FINDINGS: The heart is normal in size. The mediast inum andpulmonary vessels are unremarkable. There is haziness within the lung basesb ilaterally... The bony structures are intact.IMPRESSION: Haziness within the l eunice bases bilaterally that could representsmall pleural effusions and/or subsegmental atelectasis. Similar findings wereseen on prior exams.Xr Chest PortRes ult Date: 12/13/2018History: Respiratory difficulty. FINDINGS: A frontal portable view of the chestis compared to the prior study from earlier in the same day. EKG leads overliethe chest. The cardiac silhouette is normal in size. The left l eunice is clear. Theright lung is poorly evaluated due to significant rotation. T he possibility ofright basilar infiltrate or atelectatic change cannot be excluded. M ediastinaland hilar structures are poorly evaluated as well.IMPRESSION: Study quit e limited due to rotation. Opacity at the right lung basemay be infiltrative or at electatic in nature.Xr Chest PortResult Date: 12/12/2018History: Fever. Lethargy. FINDI NGS: 2 frontal views of the chest are compared tothe prior study of 11/25/2018. EKG leads overlie the chest. The cardiacsilhouette is normal in size. The re may be some streaky changes at the lungbases. Evaluation of the lungs and m ediastinal structures is quite limited dueto rotation.IMPRESSION: Study quite limited by rotation. Basilar streaks noted.Xr Chest PortResult Date: 11/21/2018AP portable yoshi m of the chest clinical indication pneumonia Study is compared toprevious examination of November 19, 2018. There has been partial clearing ofstreaky changes seen at the r ight base. There has been interval development ofsome haziness at the left base as well as elevation of the left leaf of thediaphragm. Heart size is difficult to evaluate.IMPRESSION: 1. Partial clearing of streaks at right base. 2. Haziness at le ftbase which may represent infiltrateXr Chest PortResult Date: 11/19/2018History: Respir atory difficulty. FINDINGS: A frontal portable view of the chestis compared to the prior study of 11/07/2016. A large gas-filled structure isnoted beneath the left diaphragm, unchanged, likely representing the stomach.The cardiac tyrell houette is normal in size. There is again noted to be shift ofmediastinal structur es to the right. There are some streaky and patchy changesat the right lung base not seen on the prior study and the possibility ofinfiltrative change cannot be excluded . A few nonspecific left basilar streaksare noted as well. Prominence of the right h ilum is unchanged and may merely carlos enrique a result of the shift of mediastinal struc tures.IMPRESSION: New patchy opacity at the right lung base may be infiltrative orat electatic in nature. Few left basilar streaks are noted as well. Otherwisefindings sim ilar.Xr Abd Port 1 VResult Date: 11/21/2018Abdomen 2 views clinical indicat ion ileus Study is compared to previousexamination of November 20, 2018. T here has been an interval decrease in boweldistention. Increased stool is note d in the rectal region. Skin clips are againnoted.IMPRESSION: 1. Interval decre ase in bowel distention. 2. Increased stool inrectal regionXr Abd Port 1 VResult Da te: 11/20/2018KUB one view(s) History: Ileus. Comparison: Yesterday. There is diffuse ileusof the small and large bowel which has increased involving the small bowel. Air and fecal material is noted in the rectosigmoid colon. The cecum appears to bein the right hemiabdomen but is otherwise unchanged. There is no evidence ofobstru ction, radiopaque gallstones, or kidney stones. The previously noted tubeoverlyi ng the abdomen is no longer seen.IMPRESSION: Increase of small bowel ileus.Duplex Upp er Ext Venous LeftResult Date: 12/26/2018DUPLEX UPPER EXT VENOUS LEFT Cl inical Data: Arm swelling, DVT suspectedFindings: The visualized segmen ts of the left upper extremity venous circulationfrom the level of the subclav deondre vein to the brachial vein is compressible andshows normal phasic flow without an i ntraluminal thrombus. In addition, theinternal jugular vein and the basilic vein is also patent. Extremely limitedexam because the patient was unable to geo ate and this was done in a portablefashion.IMPRESSION: No evidence of deep vein thrombosis within the visualized left upperextremity venous circulation. Limited study.Duplex Lower Ext Venous BilatResult Date: 01/11/2019HISTORY: swel ling to lower extremities TECHNIQUE: Bilateral lower extremityvenous Doppler ultrasound Using real time and color-flow Doppler as well asspectral analysis and ultrasound examination was performed of the lowerextremities bilaterally. FINDINGS: On the right side the common femoral vein,superficial femoral vein along its entire course, as well as popliteal vein allappeared widely patent, were easily c ompressible, showed normal spontaneousflow. The calf veins were not visualized due t o body habitus. On the left sidethe common femoral vein, superficial femoral vein a long its entire course, aswell as popliteal vein all appeared widely patent, were ea sily compressible, andshowed normal spontaneous flow. The calf veins were no t visualized due to bodyhabitus.IMPRESSION: Normal bilateral lower extremity venous Doppler ultrasound with noevidence of deep vein thrombosis.Impression: Aspiration pneumonia Acute COPD exacerbation. Acute respiratory failure with hypoxia. Dysph agia AtelectasisPlan: continue IV cefepime Follow cultures.Signed By: Natasha Dudley MD February 09, 2019 5:51 PM Name Value Range Interpretation Code Description Data Harriett rce(s) Supporting Document(s ) ID Date Data Source [id number] 02/09/2019 05:15:31 PM EDT [facility] Name Value Range Interpretation Description Data Sup porting Code Source(s) Document(s ) Glucose 120 MG/DL 65-110 Above high normal [facility] [Mass/volume] [facility] in Blood by Hospital Automated test strip ID Date Data Source [id number] 02/09/2019 04:39:14 PM EDT [facility] History and PhysicalPatient: Evelio buck Sex: male DOA: 02/08/2019Date of : 1950 Age: 68 y.o. LOS: 1 dayHPI:Evelio Carlin is a 68 y.o. male who Was adm itted with sob,pneumonia.Pt is a resident of [facility],pt with h/o COPD ,GERD,PULMEMBOLISM,PNEUMONIA,HYPERPARATHYROIDISM,MENTALRETARDATION,SCHIZOPHRENIA ,PARKINSON,Pt was brought to er by EMS withsob,cough,t achypneic,+leukocytosis,hyponatremia,Cxr with Rt basilar pneumonia,Lt basilar atelectasis ,Pt was put on BD,iv fluids,iv antx,Pt seen by pulm,to continue current rxvss afebrileChest ct; 01/10/19Small bilateral pleural effusion. Right effusion is similar to prior study.Left effusion slightly decreased in size. Patchy right lung opacities which maybe due to pneumo freddy similar to previous examinations. 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) Pneumonia Psychiatric disorder schizophrenia Pulmonary emboli (HCC) Schizophrenia (H CC)Past Surgical History:Procedure Laterality Date HX GASTROSTOMY PEG- replaced 11/2018Review o f Systems: [x] Unable to obtain ROS due to [x]mental status change []sedated[]intubated []To krystian of 12 systems reviewed as follows:Constitutional: negative fever, negative chills, negativ e weight lossEyes: negative diplopia or visual changes, negative eye painENT: negativ e coryza, negative sore throatRespiratory: negative cough, hemoptysis, dyspneaCards: neg ative for chest pain, palpitations, lower extremity edemaGI: negative for nausea, vomiting , diarrhea, and abdominal painGenitourinary: negative for frequency, dysuria and hematuriaInte gument: negative for rash and pruritusHematologic: negative for easy bruising and gum/nose bleedingMusculoskel: negative for myalgias, arthralgias, back pain and muscle weakne ssNeurological: negative for headaches, dizziness, vertigo, memory problems andgait problem sBehavl/Psych: negative for feelings of anxiety, depressionPertinent Positives include :H istory reviewed. No pertinent family history.Social HistorySocioeconomic History Marital st atus: SINGLE Spouse name: Not on file Number of children: Not on file Years of educatio n: Not on file Highest education level: Not on fileTobacco Use Smoking status: Never S moker Smokeless tobacco: Never UsedSubstance and Sexual Activity Alcohol use: No Drug u se: NoOther Topics ConcernPrior to Admission medicationsMedication Sig Start Date End Date Taking? Authorizing Providermultivitamin (MULTI-DELYN, WELLESSE) liqd 5 mL by Per G Tube route daily. YesProvider, Historicalvalproic acid, as sodium salt, (DEPAKENE) 250 mg/ 5 mL (5 mL) soln oral [id number] mg by Per G Tube route every twelve (12) hours. Yes Pro vider, Historicalacetylcysteine (MUCOMYST) 100 mg/mL (10 %) nebulizer solution Take 4 mL byin halation two (2) times a day. Yes Provider, Historicalzinc oxide 10 % topical cream Apply to affected area daily. Ribbon around GTsite Yes Provider, Historicalomeprazole (PRIL OSEC) 2 mg/mL susp 2 mg/mL oral suspension (compounded) 40 mg byPer G Tube route da pierre. Yes Provider, Historicalsilver sulfADIAZINE (SILVADENE) 1 % topical cream Apply to affected area two(2) times a day. 1 inch ribbon- right edge Yes Provider, Historicalcholestyr amine-aspartame (QUESTRAN LIGHT) 4 gram packet Take 1 Packet by mouthtwo (2) times a day.Patie nt taking differently: 4 g two (2) times a day. Via G tube. 01/24/19 YesMili Hills DOcl orazepate (TRANXENE) 3.75 mg tablet 1 Tab by Per G Tube route nightly. MaxDaily Amount: 3.7 5 mg. 12/30/18 Yes Mili Hills DOcinacalcet (SENSIPAR) 30 mg tablet Take 2 Tabs by m outh daily.Patient taking differently: 60 mg daily. Via G tube 12/30/18 Yes Mili Hills DOlamoTRIgine (LAMICTAL) 25 mg tablet 2 Tabs by Per G Tube route two (2) times aday. 12/30/18 Yes Mili Hills DOalbuterol- ipratropium (DUO-NEB) 2.5 mg-0.5 mg/3 ml nebu 3 mL by Nebuliza tionroute every six (6) hours. Every 6 hours while awake 12/30/18 Yes Mili Hills DObud esonide (PULMICORT) 0.5 mg/2 mL nbsp 2 mL by Nebulization route two (2) timesa day. Yes Mili Hills DOacetaminophen (TYLENOL) 32MG/ML soln solution Take 20.3 mL by la ut every four(4) hours as needed for Pain or Fever. 01/24/19 Mili Hills DOinfluenza vaccine 2019-20, 65 yrs+,,PF, (FLUZONE HIGH-DOSE) syrg injection 0.5mL by IntraMUSCular route P RIOR TO DISCHARGE. 01/24/19 Mili iHlls DObacitracin 500 unit/gram ointment Appl y 1 Packet to affected area two (2) timesa day. Indications: minor skin infection due to bacteria, facial scabs 12/30/18Mili Hills DONo Known AllergiesPhysical Exam:Visit Vital sBP 111/63 (BP 1 Location: Left arm, BP Patient Position: At rest)Pulse 73Temp 98 F (36 .7 C)Resp 20Ht 5' 2" (1.575 m)Wt 59.1 kg (130 lb 3.2 oz)SpO2 91%BMI 23.81 kg/m PHYSICAL EXAM: General: Lethargic,non verbal,, appears stated age.Head: Normocephalic, without obvio us abnormality, atraumatic.Eyes: Conjunctivae clear, anicteric sclerae. Pupils are equalNose : Nares normal. No drainage or sinus tenderness.Throat: Lips, mucosa, and tongue normal. No ThrushNeck: Supple, symmetrical, no adenopathy, thyroid: non tender no c arotid bruit and no JVD.Back: Symmetric, No CVA tenderness.Lungs: . No Wheezing + Rho nchi. No rales.Chest wall: No tenderness or deformity. No Accessory muscle use.Heart : Regular rate and rhythm, no murmur, rub or gallop.Abdomen: Soft, non-tender. Not distended. Bowel sounds normal. No massesExtremities: Extremities normal, atraumatic, No cyano sis. Contracted,Rt heelwound,stage 2,Rt leg woundSkin: Texture, turgor normal. N o rashes or lesions. Not JaundicedLymph nodes: Cervical, supraclavicular normal.Psych: Not depressed. Not anxious or agitated.Neurologic: EOMs intact. No facial asymmetry. Non ve rbal,contracted,lethargic.Medications Reviewed:Current Facility-Administered MedicationsMedicat ion Dose Route Frequency sodium chloride (NS) flush 5-10 mL 5-10 mL IntraVENous PRN albute rol-ipratropium (DUO-NEB) 2.5 MG-0.5 MG/3 ML 3 mL Nebulization Q4H RT budesonide (PULMICO RT) 500 mcg/2 ml nebulizer suspension 500 mcg NebulizationBID cinacalcet (SENSIPAR) t ablet 60 mg 60 mg Oral DAILY ALPRAZolam (XANAX) tablet 0.25 mg 0.25 mg Per G Tube QID P RN lamoTRIgine (LaMICtal) tablet 50 mg 50 mg Per G Tube BID multivitamin (ONE A DAY) table t 1 Tab 1 Tab Per G Tube DAILY valproic acid (as sodium salt) (DEPAKENE) 250 mg/5 mL (5 m L) oral solution 750mg 750 mg Oral Q12H sodium chloride (NS) flush 5-40 mL 5-40 mL Int raVENous Q8H sodium chloride (NS) flush 5-40 mL 5-40 mL IntraVENous PRN acetaminophen (TYLEN OL) tablet 650 mg 650 mg Oral Q4H PRN heparin (porcine) injection 5,000 Units 5,000 U nits SubCUTAneous Q12H 0.9% sodium chloride infusion 100 mL/hr IntraVENous CONTINUOUS pantop razole (PROTONIX) granules for oral suspension 40 mg 40 mg Per NG tubeACB ondansetron (ZOFRA N) injection 4 mg 4 mg IntraVENous Q6H PRN cefepime (MAXIPIME) 2 g in 0.9% sodium chloride ( MBP/ADV) 100 mL MBP 2 gIntraVENous Q8H methylPREDNISolone (PF) (Solu-MEDROL) in jection 40 mg 40 mg IntraVENous Q8H insulin lispro (HUMALOG) injection SubCUTAneous AC&HS dextrose 40% (GLUTOSE) oral gel 1 Tube 15 g Oral PRN glucagon (GLUCAGEN) injection 1 mg 1 mg SubCUTAneous PRN dextrose (D50) infusion 25 g 50 mL IntraVENous PRNLabs: Results:Chemi stry Recent Labs 02/08/1917GLU 115* 115*NA 136 130*K 4.6 4.6CL 99 91*CO2 32 39*BUN 12 10CREA 0.34* 0.49*CA 8.9 9.7AGAP 10 5*AP 65 85TP 6.0* 7.8ALB 1.8* 2.4*GLOB 4.2 5.4*A GRAT 0.4* 0.4*CBC w/Diff Recent Labs 02/08/1917WBC 14.5* 24.1*RBC 3.25* 3.9 6*HGB 10.4* 13.2*HCT 33.3* 40.8*PLT 282 365GRANS -- 89*LYMPH -- 4*Cardiac Enzymes No resul ts for input(s): CPK, CKND1, NESTOR in the last 72 hours.No lab exists for component: CKRMB , TROIPCoagulation No results for input(s): PTP, INR, APTT, INREXT, INREXT in the last72 hours .Lipid Panel Lab ResultsComponent Value Date/Time Cholesterol, total 125 02/09/2019 04:45 AM HDL Cholesterol 62 02/09/2019 04:45 AM LDL, calculated 52 02/09/2019 04:45 AM VLDL, calculated 11 02/09/2019 04:45 AM Triglyceride 55 02/09/2019 04:45 AM CHOL/HDL Ratio 2.0 1 04:45 AMBNP No results for input(s): BNPP in the last 72 hours.Liver Enzymes Recent L abs TP 6.0*ALB 1.8*AP 65SGOT 13*Thyroid Studies Lab ResultsComponent Value Date/ Time TSH 1.100 02/09/2019 04:45 AMA1C Lab ResultsComponent Value Date/Time Hemoglo bin A1c 4.4 02/09/2019 04:45 AMUrine AnalysisColorDate Value Ref Range Ltzdol2702/08/2019 YELLOW YEL FinalAppearanceDate Value Ref Range Rqwdvr7902/08/2019 CLEAR CLEAR FinalSpec ific gravityDate Value Ref Range Vlvydv6902/08/2019 1.008 1.003 - 1.030 FinalpH (UA)Date V alue Ref Range Xohkuj9202/08/2019 7.0 4.6 - 8.0 FinalProteinDate Value Ref Range Status1 NEGATIVE NEG mg/dL FinalKetoneDate Value Ref Range Gagghr4602/08/2019 NEGATIVE NEG mg/dL FinalBilirubinDate Value Ref Range Odfwap2102/08/2019 NEGATIVE NEG FinalBl oodDate Value Ref Range Axyccz8002/08/2019 NEGATIVE NEG FinalUrobilinogenDate Value Ref Range Enqwsa3202/08/2019 0.2 0.2 - 1.0 EU/dL FinalNitritesDate Value Ref Range Znguva6202/08/2019 NEGATIV E NEG FinalLeukocyte EsteraseDate Value Ref Range Lxkaal4402/08/2019 NEGATIVE NEG FinalUr ine MicroWBCDate Value Ref Range Wicvrb5801/21/2019 0-3 0 - 5 /hpf FinalRBCDate Value Ref Range Swzrku0101/21/2019 0-3 0 - 3 /hpf FinalEpithelial cellsDate Value Ref Range Dpyxqg59/09/20 19 0-3 0 - 10 /hpf FinalBacteriaDate Value Ref Range Kreuzx5701/21/2019 NONE NONE /hpf FinalCas tsDate Value Ref Range Dyuepm8001/21/2019 NONE NONE /lpf FinalCrystals, urineDate Value Ref Range Icloio9401/21/2019 NONE NONE /LPF FinalXR Results (most recent):Results from Hospital Encounter encounter on 02/08/19XR CHEST PORT Narrative XR CHEST PORTClinical data: SepsisPriors: 01/22/20 19.Findings: The heart size is unchanged. Limited inspiration with right basilarlung opaci ties which can be due to pneumonia. Slightly elevated lefthemidiaphragm with left basilar atel ectasis. No evidence of CHF or largepleural effusion. Patient's downward pointing chain obscu res the right lungapex. There is an old healed left clavicle fracture. Impression IMPRESSION : Right lower lobe parenchymal opacities which can be duetopneumonia. Left basilar atelectati c changes in the juxtadiaphragmatic location. Limited inspiration compromises evaluation.Radio logy/Pathology:Ct Chest Wo ContResult Date: 01/10/2019CT CHEST WO CONT Clinical data: evaluation of pneumonia rt lung. Priors:12/18/2018 Technique: CT scan of the chest was perf ormed from the thoracic inletto below the diaphragm without administration of intravenous co ntrast. Theacquisition data was reviewed in the axial, sagittal and coronal plane.Utiliz ing silver holloware assembler algorithm the examination was performed to optimizeimaging quality by utilizing the lowest possible radiation dose. Findings: Thereis no evidence of patholo gical lymphadenopathy within the mediastinum, bilateralhilar and bilateral axillary lo cation. There is a 1.8 cm nodule along the rightwall of the trachea at the level of the thora cic inlet (best seen on image 13ofseries 2) not seen on the prior study. This may be due to a mucous plug. Noadditional endotracheal or endobronchial lesion is noted.Normal hea rt size.Coronary artery calcifications noted. Atherosclerotic thoracic aorta withoutan eurysmal dilatation. Evaluation lung windows demonstrates patchy right lowerlobe lung infiltrate. There is associated small right pleural effusion similarto prior. There is also small left pleural effusion with underlying passiveatelectasis slightly decreased fr om the prior study. No new lung pathology isobserved. Included upper abdominal organs: No sign ificant pathology is observedwithin the visualized upper abdominal organs.IMPRESSION: Small bilateral pleural effusion. Right effusion is similar toprior study. Left effusion sl ightly decreased in size. Patchy right lungopacities which may be due to pneumonia similar to previous examinations. 1.8cm nodule along the right lateral wall of the trachea at the level of thethoracic inlet not observed on the prior study and can be due to a mucous plug.Ct Chest W Cont F/uResult Date: 01/15/2019CT CHEST W CONT F/U Clinical data: R U L NODULE NEAR TRAC HEA / BLOOD VESSEL.Priors: 01/10/2019. Technique: CT scan of the chest was performed from the thoracic inlet to below the diaphragm following administration of intravenouscontrast. The acquisition data was reviewed in the axial, sagittal and coronalplane. 100 cc of low osmolar iodinated contrast-isovue 300 was injectedintravenously for the examinatio n. Utilizing silver holloware assembler algorithm theexamination was performed to optimize imaging quality by utilizing the lowestpossible radiation dose. Findings: There is no evidence of pathol ogicallymphadenopathy within the mediastinum, bilateral hilar and bilateral axillarylo cation. There is no evidence of a central endobronchial or an endotrachealmass. Pr eviously seen nodule along the right lateral wall of the trachea nolonger visualized. This m ay have represented a mucus lung which has dislodged.Coronary artery calcifications noted. Atherosclerotic thoracic aorta withoutaneurysmal dilatation. Elevated l eft hemidiaphragm. There is a small leftpleural effusion with underlying passive atelect atic changes similar to priorstudy. Improved previously seen right lower lobe lung in filtrate. There isassociated small right pleural effusion similar to prior examination. No newlung pathology is observed. Included upper abdominal organs: No significantpatholog y is observed within the visualized upper abdominal organs.IMPRESSION: 1. Previously seen t neetu nodule is no longer visualized. 2.Small left pleural effusion with underlying passive atelectatic changes similarto prior study. Stable elevation of the left hemidiaphragm. 3. Stable smallright pleural effusion. Interval improvement in the right lower lobe lung infiltrate. No new lung findings seen.Xr Chest PortResult Date: 02/08/2019XR CHEST PORT Clinical data: Sepsis Priors: 01/21/2019. Findings: The heart sizeis unchanged. Limited ins piration with right basilar lung opacities which canbe due to pneumonia. Slightly elevated lef t hemidiaphragm with left basilaratelectasis. No evidence of CHF or large pleural effusio n. Patient's downwardpointing chain obscures the right lung apex. There is an old healed leftclavicle fracture.IMPRESSION: Right lower lobe parenchymal opacities which can be due t opneumonia. Left basilar atelectatic changes in the juxtadiaphragmatic location.Limited insp iration compromises evaluation.Xr Chest PortResult Date: 01/21/2019Referring Physician: CHASITY Patient Name: EVELIO CARLIN THIS IS AFINAL REPORT FROM [facility] DATE OF SERVICE: 2019-01-21 22:23:43 IMAGES: 1EXAM: XY CHEST PORTABLE HISTORY: Rule out sepsis COMPARISON: Chest x-ray 01/17/19FINDINGS: The patient is rotated and obliquely positioned Ther e is no airspaceconsolidation. No pneumothorax. Persistent small bilateral pleural effus ions Thecardiac silhouette appears grossly stable. Limited assessment secondary topositioni ng and partially obscured heart borders The bones are demineralized.Limited visualization of t he thoracic spineIMPRESSION: Persistent small bilateral pleural effusions No radiograp hicevidence of acute airspace process THIS DOCUMENT HAS BEEN ELECTRONICALLY SIGNEDJohn Diogo Cole MD 01/21/2019 22:46 EST MLarry Please call Imaging On [phone] ([phone]) with questions. This report was electronically signedby: Noel Cole MD 019 10:48 PMXr Chest PortResult Date: 01/17/2019Portable chest x-ray. PRIOR EXA M: X-ray 01/10/2019 HISTORY: Hypoxia FINDINGS: Theheart is normal in size. The mediastinum and p ulmonary vessels are unremarkable.There is no acute infiltrate. The bony structures are inta ct.IMPRESSION: No acute pulmonary disease. There is very limited visualization ofthe right l eunice due to patient positioning.Xr Chest PortResult Date: 01/10/2019XR CHEST PORT Clinical da ta: Sepsis Priors: 12/29/2018. Findings: Examination iscompromised due to limited inspiration and patient rotation. Heart size isunchanged. Haziness seen at the right lung base can be due to small effusionwith atelectasis/infiltrate. No confluent left lung process is seen. Noevidence of CHF.IMPRESSION: Limited study. Suspect right lung base process which may be due tosmall effusion with atelectasis/infiltrate.Duplex Lower Ext Venous BilatResult Date: 2018HISTORY: swelling to lower extremities TECHNIQUE: Bilateral lower extremityvenous Doppler ultrasound Using real time and color- flow Doppler as well asspectral analysis and ultrasound examination was performed of the lowerextremities bilaterally. FINDINGS: On the right side the common femoral vein,superficial femoral vein along its entire course, as well as popl iteal vein allappeared widely patent, were easily compressible, showed normal spontaneousf low. The calf veins were not visualized due to body habitus. On the left sidethe common femo ral vein, superficial femoral vein along its entire course, aswell as popliteal vein all kanika eared widely patent, were easily compressible, andshowed normal spontaneous flow. The c evelin veins were not visualized due to bodyhabitus.IMPRESSION: Normal bilateral lower extremity venous Doppler ultrasound with noevidence of deep vein thrombosis.No re sults found for this or any previous visit.Results from Hospital Encounter encounter on CT CHEST W CONT F/U Narrative CT CHEST W CONT F/UClinical data: R U L NODULE NEAR T RACHEA / BLOOD VESSEL.Priors: 01/10/2019.Technique: CT scan of the chest was performed from the thoracic inlet to belowthe diaphragm following administration of intravenous contrast. The acquisitiondata was reviewed in the axial, sagittal and coronal plane. 100 cc of lo wosmolar iodinated contrast-isovue 300 was injected intravenously for theexamination. Utiliz ing silver holloware assembler algorithm the examination was performed tooptimize imaging quality by utilizing the lowest possible radiation dose.Findings: There is no evidence of pathological lym phadenopathy within themediastinum, bilateral hilar and bilateral axillary location. There is noevidence of a central endobronchial or an endotracheal mass. Previously seennodule along the right lateral wall of the trachea no longer visualized. Thismay have represented a mucus lung which has dislodged. Coronary arterycalcifications noted. Atheroscler otic thoracic aorta without aneurysmaldilatation.Elevated left hemid iaphragm. There is a small left pleural effusion withunderlying passive atelectatic singleton es similar to prior study. Improvedpreviously seen right lower lobe lung infiltrate. There is associated smallright pleural effusion similar to prior examination. No new lung patholog y isobserved.Included upper abdominal organs: No significant pathology is observed within thevisualized upper abdominal organs. Impression IMPRESSION:1. Previously seen tracheal nodule is no longer visualized.2. Small left pleural effusion with underlying passive atelect atic changessimilar to prior study. Stable elevation of the left hemidiaphragm.3. Stable sma ll right pleural effusion. Interval improvement in the rightlower lobe lung infiltrate. No new lung findings seen.EKG:Results for orders placed or performed during the hospital encount er of 02/08/19EKG, 12 LEAD, INITIALResult Value Ref Range Ventricular Rate 97 BPM Atrial Rat e 97 BPM P-R Interval 148 ms QRS Duration 89 ms Q-T Interval 333 ms QTC Calculation (Bezet) 423 ms Calculated P [place] 38 degrees Calculated R [place] 17 degrees Calculated T [place] 28 degrees Diagnosis Sinus rhythmLow voltage, precordial leadsAssessment1. SOB2. COPD AC3. RLL PN EUMONIA4. ELROY EFFUSION5. R/O SEPSIS6. HYPONATREMIA7. AC ON CHRONIC HYPOXIC RESP FAILURE8. MEN KRYSTIAN RETARDATION9. CHRONIC EQCBPMIOMDQRC55. AMS/METABOLIC [id number]. Lung nod ule to f/ospital Problems Date Reviewed: 02/08/2019 Codes Class Noted POA SOB (shortne ss of breath) ICD-10-CM: R06.02ICD-9-CM: 786.05 02/08/2019 UnknownPlan1. See orders.My a ssessment, plan of care, findings, medications, side effects etc werediscussed with:[X]nursin g [ ]PT/OT[ ]respiratory therapy [ ][ ]family [ ]PatientChay Palma MDOctobe r :32 PMThe billing code submitted in association with this evaluation also in cludes thetime to review patient's prior records, communicate with the nursing & physician teams, obtain corroborating data, and discuss the risk and benefits of theproposed management p frantz with the patient and their family >30 minutes. Name Value Range Interpretation Code Description Data Harriett rce(s) Supporting Document(s ) ID Date Data Source [id number] 02/09/2019 04:01:44 PM EDT [facility] Consult NotePatient: Evelio Carlin Sex: male DOA: 02/08/2019Date of : 1950 Age: 68 y.o. LOS: LOS: 1 dayHPI:Evelio Carlin is a 68 y.o. ma le who has been seen for evaluation of rightleg and heel wounds. He was admitte d from a LTC facility with lethargy. Bradenscore is 9. He is placed on a low air loss surface with preventive caremaintained. 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 No pertinent fam pierre history.Social HistorySocioeconomic History Marital status: SINGLE Spouse name: Not on file Number of children: Not on file Years of education: Not on file H ighest education level: Not on fileTobacco Use Smoking status: Never Smoker Smoke less tobacco: Never UsedSubstance and Sexual Activity Alcohol use: No Drug use: NoO ther Topics ConcernCurrent Facility-Administered MedicationsMedicat ion Dose Route Frequency albuterol-ipratropium (DUO-NEB) 2.5 MG-0 .5 MG/3 ML 3 mL Nebulization Q6H RT acetylcysteine (MUCOMYST) 100 mg/mL (10 %) nebulizer solution 400 mg 4 mLNebulization TID RT sodium chloride ( NS) flush 5-10 mL 5-10 mL IntraVENous PRN budesonide (PULMICORT) 500 mcg/2 ml nebu lizer suspension 500 mcg NebulizationBID cinacalcet (SENSIPAR) tablet 60 mg 60 m g Oral DAILY ALPRAZolam (XANAX) tablet 0.25 mg 0.25 mg Per G Tube QID PRN lamoTRIg ine (LaMICtal) tablet 50 mg 50 mg Per G Tube BID multivitamin (ONE A DAY) tablet 1 T ab 1 Tab Per G Tube DAILY valproic acid (as sodium salt) (DEPAKENE) 250 mg/5 mL (5 m L) oral solution 750mg 750 mg Oral Q12H sodium chloride (NS) flush 5-40 mL 5-40 mL IntraVENous Q8H sodium chloride (NS) flush 5-40 mL 5-40 mL IntraVENous PRN acetaminophen (TYLENOL) tablet 650 mg 650 mg Oral Q4H PRN heparin (porcine) injectio n 5,000 Units 5,000 Units SubCUTAneous Q12H 0.9% sodium chloride infusion 100 mL/hr IntraVENous CONTINUOUS pantoprazole (PROTONIX) granules for oral suspension 40 mg 40 mg Per NG tubeACB ondansetron (ZOFRAN) injection 4 mg 4 mg IntraVENou s Q6H PRN cefepime (MAXIPIME) 2 g in 0.9% sodium chloride (MBP/ADV) 100 mL MBP 2 gIntraVENous Q8H methylPREDNISolone (PF) (Solu-MEDROL) injection 40 mg 40 mg Int raVENous Q8H insulin lispro (HUMALOG) injection SubCUTAneous AC&HS dextrose 40% (GLUTOSE) oral gel 1 Tube 15 g Oral PRN glucagon (GLUCAGEN) injection 1 mg 1 m g SubCUTAneous PRN dextrose (D50) infusion 25 g 50 mL IntraVENous PRNNo Known Des rgiesVisit VitalsBP 105/62 (BP 1 Location: Right arm, BP Patient Position: At rest) Pulse 83Temp 98.6 F (37 C)Resp 20Ht 5' 2" (1.575 m)Wt 59.1 kg (130 lb 3.2 oz)SpO2 91%BMI 23.81 kg/m Labs Reviewed:CMP:Lab ResultsComponent Value Date/Time NA 136 02/09/2019 04:45 AM K 4.6 02/09/2019 04:45 AM CL 99 02/09/2019 04:45 AM CO2 37 (H) 02:14 PM CO2 32 02/09/2019 04:45 AM AGAP 10 02/09/2019 04:45 AM GLU 115 (H) 02/09/2019 04:45 AM BUN 12 02/09/2019 04:45 AM CREA 0.34 (L) 02/09/2019 04:45 AM GFR AA >60 02/09/2019 04:45 AM GFRNA >60 02/09/2019 04:45 AM CA 8.9 02/09/2019 04 :45 AM MG 1.6 02/09/2019 04:45 AM PHOS 2.8 02/09/2019 04:45 AM ALB 1.8 (L) 02/10/20 19 04:45 AM TP 6.0 (L) 02/09/2019 04:45 AM GLOB 4.2 02/09/2019 04:45 AM AGRAT 0.4 ( L) 02/09/2019 04:45 AM SGOT 13 (L) 02/09/2019 04:45 AM ALT 9 (L) 02/09/2019 04:45 AMCB C:Lab ResultsComponent Value Date/Time WBC 14.5 (H) 02/09/2019 04:45 AM HGB 10.4 (L ) 02/09/2019 04:45 AM HCT 33.3 (L) 02/09/2019 04:45 AM PLT 282 02/09/2019 04:45 AMRadi ology:Xr Chest Sngl VResult Date: 02/09/2019AP portable film of the chest clinical indication pneumonia Study is compared toprevious examination of Octob er 2018. Again noted is cardiac enlargement curtis limited inspiration. Th ere has been partial clearing of right mid lungdensities. Again noted is an old fra cture of the left clavicleIMPRESSION: Partial clearing right lung densities otherwise little changeCt Chest W Cont F/uResult Date: 01/15/2019CT CHEST W CONT F/U Clinical da ta: R U L NODULE NEAR TRACHEA / BLOOD VESSEL.Priors: 01/10/2019. Technique: CT scan of the chest was performed from thethoracic inlet to below the diaphragm following administration of intravenouscontrast. The acquisition da ta was reviewed in the axial, sagittal and coronalplane. 100 cc of low osmolar iodi nated contrast-isovue 300 was injectedintravenously for the examinatio n. Utilizing silver holloware assembler algorithm theexamination was performed to optimize imaging quality by utilizing the lowestpossible radiation dose. Findings: There is no evidence of pathologicallymphadenopathy within the m ediastinum, bilateral hilar and bilateral axillarylocation. There is no evidence of a central endobronchial or an endotrachealmass. Previously seen nodule along the right lateral wall of the trachea nolonger visualized. This may have repr esented a mucus lung which has dislodged.Coronary artery calcifications noted. Atherosclerotic thoracic aorta withoutaneurysmal dilatation. Elevated l eft hemidiaphragm. There is a small leftpleural effusion with underlying pas sive atelectatic changes similar to priorstudy. Improved previously seen ri ght lower lobe lung infiltrate. There isassociated small right pleural effusio n similar to prior examination. No newlung pathology is observed. Included upper ab dominal organs: No significantpathology is observed within the visualized upper abd ominal organs.IMPRESSION: 1. Previously seen tracheal nodule is no longer visualized. 2.Small left pleural effusion with underlying passive atelectatic changes s imilarto prior study. Stable elevation of the left hemidiaphragm. 3. Stable small right pleural effusion. Interval improvement in the right lower lobe lunginfiltrate. No new lung findings seen.Xr Chest PortResult Date: 02/08/2019XR CHEST PORT Clinical data: Sepsis Priors: 01/21/2019. Findings: The heart sizeis unchanged. L imited inspiration with right basilar lung opacities which canbe due to pneumonia. Slightly elevated left hemidiaphragm with left basilaratelectasis. No evidence of CHF or large pleural effusion. Patient's downwardpointing chain obscures the righ t lung apex. There is an old healed leftclavicle fracture.IMPRESSION: Right lower lobe parenchymal opacities which can be due topneumonia. Left basilar atelectat ic changes in the juxtadiaphragmatic location.Limited inspiration compromises evaluation.Xr Chest PortResult Date: 01/21/2019Referring Physician: MONICA HOLLEY Patient Name: EVELIO CARLIN THIS IS AFINAL REPORT FROM [facility] DATE OF SERVICE: 2019-01-21 22:23:43 IMAGES: 1EXAM: XY CHEST PORTABLE HISTORY: Rule o ut sepsis COMPARISON: Chest x-ray 01/17/19FINDINGS: The patient is rotated and obliquely positioned There is no airspaceconsolidation. No pneumothorax. Persistent small bilateral pleural effusions Thecardiac silhouette appears grossly st able. Limited assessment secondary topositioning and partially obscured hea rt borders The bones are demineralized.Limited visualization of t he thoracic spineIMPRESSION: Persistent small bilateral pleural effusions No radiograp hicevidence of acute airspace process THIS DOCUMENT HAS BEEN ELECTRONICALLY SIGNEDJ cecelia Cole MD 01/21/2019 22:46 GINA Verde Please call Imaging On [phone].[phone] ([phone]) with questions. This report was electronically signedby: Noel Cole MD 01/21/2019 10:48 PMXr Chest PortResult Date: 01/17/2019Portable chest x-ray. PRIOR EXAM: X-ray 01/10/2019 HISTORY: Hypoxia FINDINGS: Theheart is n ormal in size. The mediastinum and pulmonary vessels are unremarkable.There is no acu te infiltrate. The bony structures are intact.IMPRESSION: No acute pulmonary di sease. There is very limited visualization ofthe right lung due to patient position ing.Duplex Lower Ext Venous BilatResult Date: 01/11/2019HISTORY: swelling to lower extr emities TECHNIQUE: Bilateral lower extremityvenous Doppler ultrasound Using real time and color-flow Doppler as well asspectral analysis and ultrasound exami [facility] was performed of the lowerextremities bilaterally. FINDINGS: On the right side the common femoral vein,superficial femoral vein along its entire course, as well as popliteal vein allappeared widely patent, were easily compressible, showed normal spontaneousflow. The calf veins were not visualized due to body habitus. On the l eft sidethe common femoral vein, superficial femoral vein along its entire course, as well as popliteal vein all appeared widely patent, were easily compressible, andsho wed normal spontaneous flow. The calf veins were not visualized due to bodyhabitus.I MPRESSION: Normal bilateral lower extremity venous Doppler ultrasound with noevidenc e of deep vein thrombosis.Review of SystemsReview of systems not obtained du e to patient factors.AssessmentPHYSICAL EXAM:General:[x]WD []Cachectic []Thin []Obese[]Disheveled [x]Ill Appearing []Critical [x]Chroni c[x]No acute DistressHEENT:[x]Normal Cephalc/AtraumaticHearing Intact to Voic e: [x]Yes ? []NoRespiratory: []Wheezing [x]No WheezingCardiac:LE Edema [x]Y es []NoAbdominal:[x]Soft / Non distended , PEGSkin:Right lateral leg with 3 x 2 cm partial thickness wound with pink base. There is no surrounding erythema or edema, no exudate.Right heel with 2 x 2 cm dry blister, clear.Left leg and heel with intact skin .No pressure injuries documented on admission.Pulses:[x]Pedal Pulses, not pa lpated, skin is pink, pedal edema.Neuro:[x]Awake, non verbal [x] I mmobileFollows Command []Yes [x]NoImpressionRight leg wound, limited to skin level POARight heel stage 2 pressure injury POAActive Problems: SOB (shortne ss of breath) (02/08/2019)PlanAllevyn dressing to the right leg and right heel every 72 hours.Continue preventive and supportive care.Please re consult if sit uation changes Name Value Range Interpretation Code Description Data Harriett rce(s) Supporting Document(s ) ID Date Data Source [id number] 02/09/2019 02:39:45 PM EDT [facility] AP portable film of the chest clinical i ndication pneumoniaStudy is compared to previous examination of February 08, 2019 . Again noted iscardiac enlargement and a limited inspiration. There has been part ial clearingof right mid lung densities. Again noted is an old fracture of the le ft clavicleIMPRESSION:Partial clearing right lung densities otherwise little change S igning date/time: 02/09/2019 2:39 PMSigned by: ROSEANNE SÁNCHEZ Name Value Range Interpretation Code Description Data Harriett rce(s) Supporting Document(s ) ID Date Data Source [id number] 02/09/2019 02:14:35 PM EDT [facility] Name Value Range Interpretation Description Data Sup porting Code Source(s) Document(s ) pH of Arterial 7.42 7.35-7.4 [facility] blood 5 [facility] Carbon dioxide 55 mmHg 32-48 Above high normal [facility] Good [Partial Taoist pressure] in Hospital Arterial blood Oxygen 59 mmHg 83-108 Below low normal [facility] - Good [Partial Taoist pressure] in Hospital Arterial blood Carbon 37 19-24 Above high normal [facility] dioxide, total mmol/L Taoist [Moles/volume] [facility] in Arterial blood Bicarbonate 36 21-28 Above high normal [facility] - Go od [Moles/volume] mmol/L Taoist in Arterial Hospital blood Oxygen 93 % 94-98 Below low normal [facility] Good saturation in Taoist Blood [facility] Base excess in 9.3 0-3 Above high normal [facility] - Good Arterial blood mmol/L Taoist by calculation Hospital Body site [facility] Arterial [facility] Good patency Wrist Taoist artery --pre Hospital arterial puncture NASAL O24 Service comment [id number] [facility] ID Date Data Source [id number] 02/09/2019 12:14:25 PM EDT [facility] PULMONARY CONSULT DICTATED # [id number] Name Value Range Interpretation Code Description Data Harriett rce(s) Supporting Document(s ) ID Date Data Source [id number] 02/09/2019 11:26:31 AM EDT [facility] Name Value Range Interpretation Description Data Sup porting Code Source(s) Document(s ) Glucose 137 MG/DL 65-110 Above high normal [facility] [Mass/volume] Taoist in Blood [facility] Automated test strip ID Date Data Source [id number] 02/09/2019 10:49:34 AM EDT [facility] Care Management InterventionsPCP Verifie d by CM: (Dr. Hills)Palliative Care Criteria Met (RRAT>21 & CHF Dx)?: NoTransition of Care Consult (CM Consult): Discharge PlanningMyChart Signup: NoDischarge Dura ble Medical Equipment: NoPhysical Therapy Consult: NoOccupational Therapy Consult: NoSpeech Therapy Consult: NoCurrent Support Network: Nursing Facility(LTR at [facility])Confirm Follow Up Transport: Other (see comment)(ambulance)Plan discussed with P t/Family/Caregiver: YesFreedom of Choice Offered: YesVeteran Resource Information Provided?: RefusedDischarge LocationDischarge Placement: Skilled mason sing facility(LTR at [facility])CASE MANAGEMENT PSYCHOSOCIAL ASSESSMENTReyes Carlin Admission Date: 02/08/2019MRN: [id number] of : 1Current date: 02/09/2019DISCHARGE PLAN: Pt admitted fr [facility]. Spoke with [facility] who confirmed pt is a LTR at [facility] and is able to return whenmedically stable. [facility].Call placed to pt's cousin Joyce [phone] whom makes all medical deci sionsand message left. Will follow.Patient Information:Patients Preferred Name: ? E manuelPatient Arrived Via: StretcherInformation Obtained From: Yaima uribe (comment)(SNF papers)Patient Objects to Receiving Blood: UnknownMRSA Assessment: Admission from skilled care facility, Admission with open woundor drain (cornell Lozano), No Known History of MRSAAuditory Impairment: None(none identified in SNF papers)Readmit Risk ToolSupport Systems: Family member(s)Relationship with Primar y Physician Group: Seen at least one time within thepast 6 monthsPCP: Mili Escudero DOAdmitting Provider: Chay Palma MDCHESAPEAKE REGIONAL [facility] SYST EM INCHOMECARE PRODUCTION HELPER: NAPayor: [place] / Plan[place] [employer] PART A AND B/ Product Type: Medicare /Secondary Payor: @ConfidexINSGROUPNAME@ B (shortness of breath) [R06.02]Patient Active Problem ListDiagnosis Code Parae sophageal hiatal hernia K44.9 COPD (chronic obstructive pulmonary disease) ([facility]) J44 .9 Acute respiratory distress R06.03 Pneumonia J18.9 COPD exacerbation ([facility]) J44.1 Sepsis due to undetermined organism ([facility]) A41.9 Generalized anxiety disorde r F41.1 Acute respiratory failure with hypoxia ([facility]) J96.01 Pneumonia involvin g right lung J18.9 Hyponatremia E87.1 SOB (shortness of breath) R06.02Social Histo rySubstance and Sexual ActivityAlcohol Use NoNumber of stairs into patient home:DME :Cohabitants:Abuse Screen:Physical Abuse/Neglect: Patient unable to answerS exual Abuse: Patient unable to answerVerbal Abuse: Patient unable to answerOther Abu se/Issues: Patient unable to answerINSURANCE INFORMATION: (Verification)Primary Note s: MCRSecondary Notes: SPWorkmen's Comp Notes:No-Fault Notes:SSD Notes:Un-Insure d Notes:Long-Term Care Insurance If Applicable Notes:Current Functioning:Frantz flannery barriers: Notes:Understanding nature/impact of illness: Notes:Ability to participate in plan: Notes:Realistic Problem solving and planning: Notes:Adeq uate coping skills: Notes:Sabianist/Cultural barriers: Notes:If unable to assess or n ot applicable: Notes:Suicide Assessment:Primary Diagnosis or Primary Complaint of an Emotional Behavior Disorder: NoPatient is Currently Experiencing Depr ession: NoSuicidal Ideation/Attempts: NoHomicidal Ideation/Attempts: NoAlcohol /Drug Intoxication: NoHallucinations/Delusions: NoPending, A ctive, or Temporary Longterm Orders: NoAggressive/Inappropriate Behavior: NoR eadmit Risk:Support Systems: Family member(s)Relationship with Primary Physi chaya Group: Seen at least one time within thepast 6 monthsRRAT Total Score: 19Adva nced Care Planning:Confirm Advance Directive: NoneDiscussed with the patient and all q uestions fully answered.3 Name Value Range Interpretation Code Description Data Harriett rce(s) Supporting Document(s ) ID Date Data Source [id number] 02/09/2019 08:56:00 AM EDT [facility] Name Value Range Interpretation Description Data Sup porting Code Source(s) Document(s ) Glucose 128 MG/DL 65-110 Above high normal [facility] [Mass/volume] Taoist in Blood by Hospital Automated test strip ID Date Data Source [id number] 02/09/2019 07:39:00 AM EDT [facility] Bedside and Verbal shift change report carol Ruiz RN (oncoming nurse) Bev PITTS (offgoing nurse). Report included the fo adriennewing information Kardex,Procedure Summary and MAR. Name Value Range Interpretation Code Description Data Harriett rce(s) Supporting Document(s ) ID Date Data Source [id number] 02/11/2019 08:06:09 PM EDT [facility] Name Value Range Interpretation Description Data Sup porting Code Source(s) Document(s ) Valproate 33.8 6.0-22.0 Above high normal [facility] - Good Free ug/mL Taoist [Mass/volume] Hospital in Serum or Plasma (NOTE) Det ection Limit = 0.5Patient drug level exceeds published reference range. Evaluateclin ically for signs of potential toxicity.Performed At: [facility] [id number] [place], [place] [id number] Sanjai MD Ph:[phone] ID Date Data Source [id number] 02/09/2019 06:58:15 AM EDT [facility] Name Value Range Interpretation Description Data Sup porting Code Source(s) Document(s ) Hemoglobin 4.4 % 4.2-6.3 [facility] - Good A1c/Hemoglobin Taoist .total in Hospital Blood ID Date Data Source [id number] 02/09/2019 06:41:44 AM EDT [facility] Name Value Range Interpretation Description Data Sup porting Code Source(s) Document(s ) Leukocytes 14.5 4.8-10.6 Above high normal [facility] - [#/volume] in K/uL Good Blood by Taoist Automated count [facility] Erythrocytes 3.25 4.70-6.0 Below low normal [facility] - [#/volume] in M/uL 0 Good Blood by Taoist Automated count [facility] Hemoglobin 10.4 14.0-18. Below low normal [facility] - [Mass/volume] in g/dL 0 Good Blood [facility] Hematocrit 33.3 % 42.0-52. Below low normal [facility] - [Volume 0 Good Fraction] of Taoist Blood by Hospital Automated count Erythrocyte mean 102.5 FL 81.0-94. Above high normal [facility] - corpuscular 0 Good volume [Entitic Taoist volume] by Hospital Automated count Erythrocyte mean 32.0 PG 27.0-35. [facility] - corpuscular 0 Good hemoglobin Taoist [Entitic mass] Hospital by Automated count Erythrocyte mean 31.2 30.7-37. [facility] - corpuscular g/dL 3 Good hemoglobin Taoist concentration [facility] [Mass/volume] by Automated count Erythrocyte 15.9 % 11.5-14. Above high normal [facility] - distribution 0 Good width [Ratio] by Taoist Automated count [facility] Platelets 282 K/uL 130-400 [facility] - [#/volume] in Good Blood by Taoist Automated count [facility] Platelet mean 8.9 FL 9.2-11.8 Below low normal [facility] - volume [Entitic Good volume] in Blood Taoist by Automated Hospital count ID Date Data Source [id number] 02/09/2019 06:25:18 AM EDT [facility] Name Value Range Interpretation Description Data Sup porting Code Source(s) Document(s ) Urate 3.8 mg/dL 3.5-7.2 [facility] - Good [Mass/volu [facility]] in Hospital Serum or Plasma ID Date Data Source [id number] 02/09/2019 06:25:18 AM EDT [facility] Value Range Interpretation Description Data Sup porting Code Source(s) Document(s ) Phosphate 2.8 mg/dL 2.5-4.9 [facility] - Good [Mass/volume] Taoist in Serum or Hospital Plasma ID Date Data Source [id number] 02/09/2019 06:25:18 AM EDT [facility] Name Value Range Interpretation Description Data Sup porting Code Source(s) Document(s ) Cholesterol 125 <200 [facility] - Good [Mass/volume] mg/dL Taoist in Serum or Hospital Plasma Triglyceride 55 mg/dL <150 [facility] - Good [Mass/volume] Taoist in Serum or Hospital Plasma Cholesterol in 62 mg/dL >40 [facility] - Good HDL Taoist [Mass/volume] Hospital in Serum or Plasma Cholesterol in 52 MG/DL <100 [facility] - Good LDL Taoist [Mass/volume] Hospital in Serum or Plasma by calculation Cholesterol in 11 MG/DL <38 [facility] - Good VLDL Taoist [Mass/volume] Hospital in Serum or Plasma by calculation Cholesterol in 2.0 0.0-4.5 [facility] - Good HDL/Cholesterol Taoist .total [Mass Hospital Ratio] in Serum or Plasma ID Date Data Source [id number] 02/09/2019 06:25:18 AM EDT [facility] Value Range Interpretation Description Data Sup porting Code Source(s) Document(s ) NOLOINC 1.100 0.360-3.7 [facility] - Good uIU/mL [address] [place] [address] This assay result should be used in conj unction with information available from clinical evaluation and other diagnostic procedures. 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: [employer] ID Date Data Source [id number] 02/09/2019 06:25:18 AM EDT [facility] Name Value Range Interpretation Description Data Sup porting Code Source(s) Document(s ) Magnesium 1.6 mg/dL 1.6-2.6 [facility] - Good [Mass/volume] Taoist in Serum or Hospital Plasma ID Date Data Source [id number] 02/09/2019 06:25:18 AM EDT [facility] Name Value Range Interpretation Description Data Sup porting Code Source(s) Document(s ) Sodium 136 136-145 [facility] - Good [Moles/volume] mmol/L Taoist in Serum or Hospital Plasma Potassium 4.6 3.5-5.1 [facility] - Good [Moles/volume] mmol/L Taoist in Serum or Hospital Plasma Chloride 99 98-107 [facility] - Good [Moles/volume] mmol/L Taoist in Serum or Hospital Plasma Carbon 32 21-32 [facility] - Good dioxide, total mmol/L Taoist [Moles/volume] Hospital in Serum or Plasma Anion gap in 10 10-20 [facility] - Good Serum or mmol/L Taoist Plasma Hospital Glucose 115 74-106 Above high normal [facility] - Good [Mass/volume] mg/dL Taoist in Serum or Hospital Plasma Urea nitrogen 12 mg/dL 7-18 [facility] - Good [Mass/volume] Taoist in Serum or Hospital Plasma Creatinine 0.34 0.70-1.3 Below low normal [facility] - Good [Mass/volume] mg/dL 0 Taoist in Serum or Hospital Plasma Glomerular >60 [facility] - Good filtration Taoist rate/1.73 sq M Hospital predicted among blacks [Volume Rate/Area] in Serum or Plasma by Creatinine-bas ed formula (MDRD) Glomerular >60 [facility] - Good filtration Taoist rate/1.73 sq M Hospital predicted among non-blacks [Volume Rate/Area] in Serum or Plasma by Creatinine-bas ed formula (MDRD) Calcium 8.9 8.5-10.1 [facility] - Good [Mass/volume] mg/dL Taoist in Serum or Hospital Plasma ID Date Data Source [id number] 02/09/2019 06:25:18 AM EDT [facility] Name Value Range Interpretation Description Data Sup porting Code Source(s) Document(s ) Bilirubin.total 0.2 0.2-1.0 [facility] - [Mass/volume] in mg/dL Good Serum or Plasma [facility] Bilirubin.direct 0-0.2 [facility] - [Mass/volume] in Good Serum or Plasma [facility] Alanine 9 U/L 13-61 Below low normal [facility] - aminotransferase Good [Enzymatic Taoist activity/volume] in Hospital Serum or Plasma Aspartate 13 U/L 15-37 Below low normal [facility] - aminotransferase Good [Enzymatic Taoist activity/volume] in Hospital Serum or Plasma by With P-5'-P Alkaline 65 U/L 45-117 [facility] - phosphatase Good [Enzymatic Taoist activity/volume] in Hospital Serum or Plasma Protein 6.0 6.4-8.2 Below low normal [facility] - [Mass/volume] in g/dL Good Serum or Plasma [facility] Albumin 1.8 3.5-4.7 Below low normal [facility] - [Mass/volume] in g/dL Good Serum or Plasma by Taoist Bromocresol [facility] (BCP) dye binding method Globulin 4.2 1.7-4.7 [facility] - [Mass/volume] in g/dL Good Serum by [facility] Albumin/Globulin 0.4 0.7-2.8 Below low normal [facility] - [Mass Ratio] in Good Serum or Plasma [facility] ID Date Data Source [id number] 02/09/2019 03:20:15 AM EDT [facility] Problem: Pressure Injury - Risk ofGoal: *Prevention of pressure injuryDescriptionDocument Butch Scale a nd appropriate interventions in the flowsheet.Outcome: Progressing Towards G oalNote:Pressure Injury Interventions:Sensory Interventions: Check visual cues for justus n, Float heels, Keep linens dryand wrinkle-free, Minimize linen layers, Pre ssure redistribution bed/mattress(bed type), Turn and reposition approx. every two ho urs (pillows and wedges ifneeded)Moisture Interventions: Moisture barrier, Check f or incontinence Q2 hours and asneededActivity Interventions: Pressure redistribution b ed/mattress(bed type)Mobility Interventions: Pressure redistribution bed/mattress (be d type), Turnand reposition approx. every two hours(pillow and wedges)Nutrition Interv entions: Document food/fluid/supplement intakeFriction and Shear Interventions: Lift sheetProblem: Tissue Perfusion - Cardiopulmonary, AlteredGoal: *Optimize tissue perfusionOutcome: Progressing Towards Goal Name Value Range Interpretation Code Description Data Harriett rce(s) Supporting Document(s ) ID Date Data Source [id number] 02/08/2019 11:42:39 PM EDT [facility] Urine sample sent to the lab Name Value Range Interpretation Code Description Data Harriett rce(s) Supporting Document(s ) ID Date Data Source [id number] 02/09/2019 10:34:58 AM EDT [facility] Name Value Range Interpretation Description Data Sup porting Code Source(s) Document(s ) Legionella [facility] pneumophila Ag Taoist [Presence] in Hospital Urine by Immunoassay PRESUMPTIVE NEGATIVE forL.pneumophila Se rogroup 1Antigen in urine,suggestingno recent or current infection.Infection due to Le gionellacannot be ruled out since otherserogroups and species may causedis ease,antigen may not bepresent in urine in earlyinfection, and the level ofantigen present in the urinemay be below the detectionlimit of the test. Service comment [facility] ID Date Data Source [id number] 02/08/2019 10:35:35 PM EDT [facility] Value Range Interpretation Description Data Sup porting Code Source(s) Document(s ) Glucose 108 MG/DL 65-110 [facility] [Mass/volume] Taoist in Blood by [facility] Automated test strip ID Date Data Source [id number] 02/08/2019 10:21:01 PM EDT [facility] Pt received from ER, RN accompanied. Fuentes rt,non-verbal, responses to voice. NSRon tele HR is in 80s. No visual signs of pain, d iscomfort noted. All needed careprovided. Continue monitoring. Name Value Range Interpretation Code Description Data Harriett rce(s) Supporting Document(s ) ID Date Data Source [id number] 02/08/2019 10:59:45 PM EDT [facility] Name Value Range Interpretation Description Data Sup porting Code Source(s) Document(s ) Lactate 1.7 0.4-2.0 [facility] [Moles/volu MMOL/L [facility]] in Hospital Serum or Plasma ID Date Data Source [id number] 02/08/2019 09:45:22 PM EDT [facility] [id number] [facility] [place] [facility] [address] [facility] [id number] [phone] GabeEvelio (Male) [id number] ES I 2 ED Dispo:ADMIT Chief Complaint: Shortness of Breath Diagnosis: Pneumonia of right lower lobe due to infectious organism (HCC) [] Current Providers: Attending: Eloisa Kim; Justin Palma Consulting Provider: Justin Garcia; Sabrina Dudley; Cindi Frankel; Mireya Lopez Physician: Justin Palma Primary Nurse: Rain Wagner M Tech: ERICKA Merino: [phone] [employer] [id number] - Bshsi [employer] MrnMRN: [id number] [employer] [id number] - Bs hsi Ed Medva Age SexDOB 1950 AGE 68 SEX Male Primary Care Provider: Mili Hills DO Phone: [phone]: (No Known Allergies)Date Reviewed: 02/08/2019Reviewed by: Ra lucinda Palma MD - Review CompleteED Provider Notes: All notesHNO ID: [id number]: Darryl Kim MDServi ce: -Author Type: PhysicianFiled: 02/08/192038Note Text:The history is provided by the patient.4:40 PM: Evelio Carlin is a 68 y.o. male with h/o oxygen dependency,schizophrenia, COPD and pneumonia who presents to the E D from [facility] via EMS for shortness of breath this afternoon. It is reported thatDr. Lopez ([facility]) instructed for the patient to visit theED. The patient is unable to give any history.Dr. 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) Pneumoni a Psychiatric disorder Pulmonary emboli (HCC) Schizophrenia (HCC)No past surgical history on file.No family history on file.Social HistorySocioeconomic History Marital status: SINGLE Spouse name: Not on file Number of children: Not on file Years of education: Not on file Highest education level: Not on fileOccupational History Not on fileSocial Needs Financial resource strain: Not on file Food insecurity: Worry: Not on fi le Inability: Not on file Transportation needs: Medical: Not on file Non-medical: Not on fileTobacco Use Sm oking status: Never Smoker Smokeless tobacco: Never UsedSubstance and Sexual Activity Alcohol use: No Drug u se: No Sexual activity: Not on fileLifestyle Physical activity: Days per week: Not on file Minutes per sessi on: Not on file Stress: Not on fileRelationships Social connections: Talks on phone: Not on file Gets alexuseth er: Not on file Attends quaker service: Not on file Active member of club or organization: Not on file At tends meetings of clubs or organizations: Not on file Relationship status: Not on file Intimate partner vi olence: Fear of current or ex partner: Not on file Emotionally abused: Not on file Physically abused: Not on file Forced sexual activity: Not on fileOther Topics Concern Not on fileSocial History Narrative Not on fileALLERGIES: Patient has no known allergies.Review of SystemsUnable to perform ROS: Patient no nverbalVitals: 02/08/19 1800 02/08/19 1815 02/08/19 1830 02/08/19 1831BP: 109/60 94/50 120/63Pulse: 87 85 84 83Resp: 30 (!) 31 22 29Temp:SpO2: 97% 98% 98% 100%Weight:Height: 4:18 PM Pulse Oximetry reading is 94 % o n room air, which indicatesnormal oxygenation per Darryl Kim MD.Physical ExamConstitutional: He appea rs well-developed and well-nourished. No distress.HENT:Head: Normocephalic and atraumatic.Eyes: Pupil s are equal, round, and reactive to light. EOM are normal.Neck: Normal range of motion. Neck supple.Cardiovascu lar: Normal rate, regular rhythm and normal heart sounds. Examreveals no gallop and no friction rub.No murmur heard.Pulmonary/Chest: Effort normal and breath sounds normal. No respiratorydistress. He has no wheezes. He has no rales.Abdominal: Soft. Bowel sounds are normal. He exhibits no distension. Thereis no tenderness. Th ere is no rebound and no guarding.Large umbilical hernia. PIC tube in LUQ.Musculoskeletal: Normal range of mot ion. He exhibits no edema.Minimal movements of the arms and legs. 1+ edema in the legs.Neurological: He is al ert.Patient nonverbal, does not follow commands.Skin: Skin is warm and dry. No rash noted.Psychiatric:Unable to assess.Nursing note and vitals reviewed.MDMNumber of Diagnoses or Management OptionsPneumonia of right low er lobe due to infectious organism (HCC):Amount and/or Complexity of Data ReviewedClinical lab tests: ordered and reviewedTests in the radiology section of CPT : ordered and reviewedDecide to obtain previous medica l records or to obtain history fromsomeone other than the patient: yesObtain history from someone other myrtel n the patient: yesReview and summarize past medical records: yesDiscuss the patient with other providers: yesInd ependent visualization of images, tracings, or specimens: yesProJulio Christine Stephen, MD, revscarlet wed the patient's past history, allergies andhome medications as documented in the nursing chart.Labs:Rec ent Results (from the past 12 hour(s))EKG, 12 LEAD, INITIAL Collection Time: 02/08/19 4:18 PMResult Value Ref Range Ventricular Rate 97 BPM Atrial Rate 97 BPM P-R Interval 148 ms QRS Duration 89 ms Q-T Interval 333 ms Q TC Calculation (Bezet) 423 ms Calculated P [place] 38 degrees Calculated R [place] 17 degrees Calculated T [place] 28 deg phillip Diagnosis Sinus rhythmLow voltage, precordial leadsURINALYSIS W/ RFLX MICROSCOPIC Collection Time: 4:59 PMResult Value Ref Range Color YELLOW YEL Appearance CLEAR CLEAR Specific gravity 1.008 1.003 - 1.0 30 pH (UA) 7.0 4.6 - 8.0 Protein NEGATIVE NEG mg/dL Glucose NEGATIVE NEG mg/dL Ketone NEGATIVE NEG mg/dL Elroy irubin NEGATIVE NEG Blood NEGATIVE NEG Urobilinogen 0.2 0.2 - 1.0 EU/dL Nitrites NEGATIVE NEG Leukocyte E sterase NEGATIVE NEGLACTIC ACID Collection Time: 02/08/19 5:00 PMResult Value Ref Range Lactic acid 2.2 (HH) 0.4 - 2.0 MMOL/LMETABOLIC PANEL, COMPREHENSIVE Collection Time: 02/08/19 5:00 PMResult Value Ref Range Sodium 130 (L) 136 - 145 mmol/L Potassium 4.6 3.5 - 5.1 mmol/L Chloride 91 (L) 98 - 107 mmol/L CO2 39 (H) 21 - 3 2 mmol/L Anion gap 5 (L) 10 - 20 mmol/L Glucose 115 (H) 74 - 106 mg/dL BUN 10 7 - 18 mg/dL Creatinine 0.49 (L) 0.70 - 1.30 mg/dL GFR est AA >60 >60 ml/min/1.73m2 GFR est non-AA >60 >60 ml/min/1.73m2 Calcium 9.7 8.5 - 10.1 mg/dL Bilirubin, total 0.3 0.2 - 1.0 mg/dL ALT (SGPT) 9 (L) 13 - 61 U/L AST (SGOT) 19 15 - 37 U/L Alk. phosp hatase 85 45 - 117 U/L Protein, total 7.8 6.4 - 8.2 g/dL Albumin 2.4 (L) 3.5 - 4.7 g/dL Globulin 5.4 (H) 1.7 - 4.7 g/dL A-G Ratio 0.4 (L) 0.7 - 2.8CBC WITH AUTOMATED DIFF Collection Time: 02/08/19 5:00 PMResult Value Ref Range WBC 24.1 (H) 4.8 - 10.6 K/uL RBC 3.96 (L) 4.70 - 6.00 M/uL HGB 13.2 (L) 14.0 - 18.0 g/dL HCT 4 0.8 (L) 42.0 - 52.0 % MCV 103.0 (H) 81.0 - 94.0 FL MCH 33.3 27.0 - 35.0 PG MCHC 32.4 30.7 - 37.3 g/dL RDW 15.9 ( H) 11.5 - 14.0 % PLATELET 365 130 - 400 K/uL MPV 9.1 (L) 9.2 - 11.8 FL NEUTROPHILS 89 (H) 48 - 72 % BAND NEUTRO PHILS 7 (H) <1 % LYMPHOCYTES 4 (L) 18 - 40 % RBC COMMENTS 1+ANISOCYTOSIS RBC COMMENTS 1+MACROCYTOS IS RBC COMMENTS SLIGHTHYPOCHROMIA PLATELET ESTIMATE ADEQUATE DF MANUALEKG: Sinus rhythm at a rate of [address] or T wave changes.Interpreted by Darryl Kim MDRadiology:CXR Results (Last 48 hours) 02/08/19 6716 XR CHEST PORT Final result Impression: IMPRESSION: Right lower lobe parenchymal opacities w hich canbe due topneumonia. Left basilar atelectatic changes in the juxtadiaphragmaticlocation. Limited insp iration compromises evaluation. Narrative: XR CHEST PORTClinical data: SepsisPriors: 01/21/2019.Findings: The he art size is unchanged. Limited inspiration with rightbasilarlung opacities which can be due to pneumonia. Slightly elevated lefthemidiaphragm with left basilar atelectasis. No evidence of CHF or largepleural effus ion. Patient's downward pointing chain obscures the rightlungapex. There is an old healed left clavicle fra cture.Radiology reviewed by Darryl Kim MD.<EMERGENCY DEPARTMENT CASE SUMMARY>Impression/Differential Sammie gnosis: 68 y.o. male presented to the ED withschizophrenia and chronic oxygen depedemcy from a long-term wit hshortness of breath today. Given Nebulizer w no improvement and sent toED. Patient unable to give history and rectal temp of 99.6F.Will give 2 albuterol nebulizers. Will get complete septic workupincluding labs, EK G, chest x-ray and cultures of the blood and urine.Patient appears only mildly sob.ED Course:Labs and radiology results reviewed.6:22 PM Patient with a white count of 24 and lactate of 2.2. The patient'sCXR shows RLL infil trate. Will give IV antibiotics and call Dr. Hills(PMD).6:27 PM Case presentation and findings discussed with Dr. Gonzalez (PMD oncall for Dr. Hills) who will admit the patient.A sepsis reassessment and physical exam wa s performed prior to admit.Patient was reassessed prior to disposition.Final Impression/Diagnosis:E ncounter Diagnoses ICD-10-CM ICD-9-CM1. Pneumonia of right lower lobe due to infectious organism (HCC) J18.148 6Patient condition at time of disposition: stableI have reviewed the following home medications:Prior to Admi ssion medicationsMedication Sig Start Date End Date Taking? Authorizing Provideracetaminophen (TYLENOL) 32MG/ML soln solution Take 20.3 mL by mouth everyfour (4) hours as needed for Pain or Fever. 01/24/19 Cesar Hills DOinfluenza vaccine 2018-, 65 yrs+,,PF, (FLUZONE HIGH-DOSE) syrg injection0.5 mL by IntraMUSCular route P RIOR TO DISCHARGE. 01/24/19 Mili Hills, DOcholestyramine-aspartame (QUESTRAN LIG HT) 4 gram packet Take 1 Packet bymouth two (2) times a day. 01/24/19 Mili Hills DOclorazepate (TRANXENE ) 3.75 mg tablet 1 Tab by Per G Tube route nightly.Max Daily Amount: 3.75 mg. 12/30/18 Mili Hills DOmu ltivitamin (ONE A DAY) tablet 1 Tab by Per G Tube route daily. 12/30/18Mili Hills DOcinacalcet (SE NSIPAR) 30 mg tablet Take 2 Tabs by mouth daily. 12/30/18Mili Hills DOlamoTRIgine (LAMICTAL) 25 mg tablet 2 Tabs by Per G Tube route two (2)times a day. 12/30/18 Mili Hills DOalbuterol-ipratropium (DUO-NE B) 2.5 mg-0.5 mg/3 ml nebu 3 mL byNebulization route every six (6) hours. Every 6 hours while awake 12/30/18 Mili Hills DOalbuterol- ipratropium (DUO-NEB) 2.5 mg-0.5 mg/3 ml nebu 3 mL byNebulization route every fou r (4) hours as needed for Cough (wheezing,shortness of breath). 12/30/18 Mili Hills DObudesonide (PULMICO RT) 0.5 mg/2 mL nbsp 2 mL by Nebulization route two (2)times a day. 12/30/18 Mili Hills DObacitracin 500 unit/gram ointment Apply 1 Packet to affected area two (2)times a day. Indications: minor skin infection d ue to bacteria, facialscabs 12/30/18 Mili Hills DOpantoprazole (PROTONIX) 40 mg granules for oral suspe nsion 40 mg by Per GTube route Daily (before breakfast). 11/28/18 Mili Hills DOvalproate (DEPAKENE) 250 mg/5 mL syrup Take 750 mg by mouth two (2) timesa day. Provider, Darryl Montalvo MD I, Elisa Acosta, am serving as a scribe to document servicespersonally performed by Darryl Kim MD based on my observation and theprovider's statements to me.I, Darryl Kim MD, attest that the person(s) noted above, a cting as myscribe(s) noted above, has observed my performance of the services and hasdocumented them in accor dance with my direction. I have personallyreviewed the above information and have ordered and reviewe d thediagnostic studies, unless otherwise noted.ED Orders [id number] URINALYSIS W/ RFLX MICROSCOPIC [# [id number]] Priority: STAT Class: ER Collect Standing Order Information Remaining Occurrences:0 /1 Interval:ONE TIME Last released:02/08/2019 Released orders: Karla Feb 08, 2019 4:45 PM by: KYLAH WAGNER [id number] URINALYSIS W/ RFLX MICROSCOPIC [#[id number]] Priority: STAT Cl ass: ER Collect Specimen Source: Urine Specimen Collected: 02/08/2019 4:59 PM Resulting Agency: [facility] Test ID: UA Released on: 02/08/2019 4:45 PM [id number] LACTIC ACID [#[id number]] Priority: STAT Class: ER Collect Standing Order Information Remaining Occurre nces:0/2 Interval:EVERY 4 HRS Last released:02/08/2019 Released orders: Karla Feb 08, 2019 8:05 PM by: DARRYL KIM Feb 08, 2019 4:46 PM by: DARRYL KIM [id number] METABOLIC PA SAADIA, COMPREHENSIVE [#[id number]] Priority: STAT Class: ER Collect Standing Order Information Remaining Occurrences:0/1 Interval:ONE TIME Last released:02/08/2019 Released orders : Karla Feb 08, 2019 4:46 PM by: DARRYL KIM [id number] CBC WITH AUTOMATED DIFF [#[id number]] Priority: STAT Class: ER Collect Standing Order Information Remaining Occurrences:0 /1 Interval:ONE TIME Last released:02/08/2019 Released orders: Karla Feb 08, 2019 4:46 PM by: DARRYL KIM [id number] LACTIC ACID [#[id number]] Priority: STAT C lass: ER Collect Specimen Source: Plasma Specimen Collected: 02/08/2019 5:00 PM Resulting Agency: [facility] Test ID: LAC Released on: 02/08/2019 4:46 PM [id number] METABOLIC PANEL, COMPREHENSIVE [#[id number]] Priority: STAT Class: ER Collect Specimen Source: Plasma Specim en Collected: 02/08/2019 5:00 PM Resulting Agency: [facility] Test ID: MPL Rel eased on: 02/08/2019 4:46 PM [id number] CBC WITH AUTOMATED DIFF [#[id number]] Priority: STAT Cl ass: ER Collect Specimen Source: Whole Blood Specimen Collected: 02/08/2019 5:00 PM Resulting Agency: [facility] Test ID: CBCA Released on: 02/08/2019 4:46 PM [id number] CBC W/O DI FF [#[id number]] Priority: Routine Class: ER Collect Standing Order Information Remaining Occurrences: Interval:DAILY [id number] HEMOGLOBIN A1C W/O EAG [# [id number]] Priority: Routine Class: ER Collect Standing Order Information Remaining Occurrences: Interval:TOMORROW AM [id number] HEPATIC FUNCTION PANEL [#[id number]] Priority: STAT Class: ER Collect Standing Order Information Remaining Occurrences:04/15 Interval:TOMORR OW AM [id number] LACTIC ACID [#[id number]] Canceled Priority: Routine Class: ER Collect Canceled by GEOVANI, LAB IN [employer] on SatFeb 08, 2019 8:06 PM Reason: Other Comment: Duplicate Standing Order Information Remaining Occurrences:0 Interval:ONE TI ME Last released:02/08/2019 Released orders: Sun Feb 08, 2019 8:05 PM by: CHAY PALMA [id number] LIPID PANEL [#[id number]] Priority: Routine Class: ER Collect Standing Order Information Remaining Occurrences:04/15 Interval:TOMORROW AM [id number] MAGNESIUM [#[id number]] Priority: Routine Class: ER Collect Standing Order Information Remaining Occurrences: Interval:DAILY [id number] METABOLIC PANEL, BASIC [# [id number]] Priority: Routine Class: ER Collect Standing Order Information Remaining Occurrences:2 05/05 Interval:DAILY [id number] NT- PRO BNP [#[id number]] Canceled Priority: ST AT Class: ER Collect Specimen Source: Blood Canceled by GEOVANI, LAB IN [employer] on Sun Feb 08, 2019 7:3 8 PM Reason: Other Comment: Added to previous accession Standing Order Information Remainin g Occurrences:0/1 Interval:ONE TIME Last released:02/08/2019 Released orders : [place] Feb 08, 2019 7:28 PM by: CHAY PALMA [id number] PHOSPHORUS [#[id number]] Priority: Routine Class: ER Collect Standing Order Information Remaining Occurre nces:04/15 Interval:TOMORROW AM [id number] TROPONIN I [#[id number]] Canceled Priority: STAT Class: ER Collect Canceled by GEOVANI, LAB IN [employer] on SatFeb 08, 2019 7:38 PM Reason: Other Comment: Added to previous accession Standing Order Information Remainin g Occurrences:0/1 Interval:ONE TIME Last released:02/08/2019 Released orders : [place] Feb 08, 2019 7:28 PM by: CHAY PALMA [id number] TSH 3RD GENERATION [#[id number]] Priority: Routine Class: ER Collect Standing Order Information Remaining Occurre nces:04/15 Interval:TOMORROW AM [id number] URIC ACID [#[id number]] Priority: Routine Class: ER Collect Standing Order Information Remaining Occurrences:04/15 Inter seema:TOMORROW AM [id number] VALPROIC ACID, FREE [#[id number]] Priority: Routine Class : ER Collect Specimen Source: Blood Standing Order Information Remaining Occurrences:04/15 Inter seema:TOMORROW AM [id number] NT-PRO BNP [#[id number]] Canceled Priority: STAT Class: ER Collect Specimen Source: Blood Specimen Collected: 02/08/2019 7:30 PM Resulting Agency: [facility] Test ID: PBNP Canceled by GEOVANI, LAB IN [employer] on SatFeb 08, 2019 7:38 PM Reason: Other Comment: Added to previous accession Released on: 02/08/2019 7: 28 PM [id number] TROPONIN I [#[id number]] Canceled Priority: STAT Class: ER Co llect Specimen Collected: 02/08/2019 7:30 PM Resulting Agency: [facility] Test ID: TROIP Canceled by GEOVANI, LAB IN [employer] on SatFeb 08, 2019 7:38 PM Reason: Other Comment: Added to previous accession Released on: 02/08/2019 7:28 PM [id number] NT-PRO BNP [#[id number]] Priority: Blood in Lab Class: ER Collect Resulting Agency: [facility] Test ID: PBNP Standing Order Information Remaining Occurrences:0/1 Released orders: [place] Feb 08, 2019 5:00 PM by: [employer] [id number] NT-PRO BNP [#[id number]] Priority: Blood in Lab Class: ER Collect Specimen Source: Serum or Plasma Specim en Collected: 02/08/2019 5:00 PM Resulting Agency: [facility] Test ID: OLGA LIDIA Re leased on: 02/08/2019 5:00 PM [id number] TROPONIN I [#[id number]] Priority: Blood i n Lab Class: ER Collect Resulting Agency: [facility] Test ID: VADIM Standing O rder Information Remaining Occurrences:0/1 Released orders: [place] Feb 08, 2019 5:00 PM by: Hilda singletary Batch [employer] [id number] TROPONIN I [#[id number]] Priority: Blood in Lab Class: ER Collect Specimen Source: Plasma Specimen Collected: 02/08/2019 5:00 PM Resulting Agency: [facility] Test ID: VADIM Released on: 02/08/2019 5:00 PM [id number] LACTIC ACI D [#[id number]] Priority: STAT Class: ER Collect Resulting Agency: [facility] Test ID: LAC Released on: 02/08/2019 8:05 PM [id number] LACTIC ACID [#[id number]] Canceled Priority: STAT Class: ER Collect Specimen Collected: 02/08/2019 9:00 PM Resulting Agency: [facility] Test ID: LAC Canceled by SOHAIL OLIVO IN [employer] on S Feb 08, 2019 8:06 PM Reason: Other Comment: Duplicate Released on: 02/08/2019 8:05 PM [id number] CULTURE, BLOOD [#[id number]] Priority: STAT Class: ER Collect Specimen Source : Blood Standing Order Information Remaining Occurrences:0/1 Interval:ONE TIME Last rele ased:02/08/2019 Released orders: [place] Feb 08, 2019 4:46 PM by: DARRYL KIM [id number] MAGNOLIA B LOOD [#[id number]] Priority: STAT Class: ER Collect Specimen Source: Blood Stand ing Order Information Remaining Occurrences:0/1 Interval:ONE TIME Last released:1 Released orders: [place] Feb 08, 2019 4:46 PM by: DARRYL KIM [id number] CULTURE, BLOOD [#[id number]] Priority: STAT Class: ER Collect Specimen Source: Blood Specimen Collec mikel: 02/08/2019 5:00 PM Resulting Agency: [facility] Test ID: HBCS Released on : 02/08/2019 4:46 PM [id number] CULTURE, BLOOD [#[id number]] Priority: STAT Class: E R Collect Specimen Source: Blood Specimen Collected: 02/08/2019 5:19 PM Resulting Agency: [facility] Test ID: HBCS Released on: 02/08/2019 4:46 PM [id number] CULTURE, RESPIRATORY/SPUTUM/BRO NCH W* [#[id number]] Priority: Routine Class: ER Collect Specimen Source: Sputum Standing Order Informa tion Remaining Occurrences:0/1 Interval:ONE TIME Last released:02/08/2019 Released o rders: Karla Feb 08, 2019 7:28 PM by: CHAY PALMA [id number] LEGIONELLA PNEUMOPHILA AG, URIN E [#[id number]] Priority: Routine Class: ER Collect Specimen Source: Urine Standing Order Informat ion Remaining Occurrences:0/1 Interval:ONE TIME Last released:02/08/2019 Released o rders: [place] Feb 08, 2019 7:28 PM by: CHAY PALMA Specimen source -> Urine [id number] C ULTURE, RESPIRATORY/SPUTUM/BRONCH W* [#[id number]] Priority: Routine Class: ER Collect Specimen Source: Sput um Resulting Agency: [facility] Test ID: HRESC Released on: 02/08/2019 7:28 P M [id number] LEGIONELLA PNEUMOPHILA AG, URINE [#[id number]] Priority: Routine Class: ER Collect Sp ecimen Source: Urine Resulting Agency: [facility] Test ID: ULEGB Specimen source -> Urine Released on: 02/08/2019 7:28 PM [id number] XR CHEST PORT [#[id number] ] Priority: STAT Class: Hospital Performed Standing Order Information Remaining Occurrences:0 /1 Interval:ONE TIME Last released:02/08/2019 Released orders: [place] Feb 08, 2019 4:46 PM by: DARRYL KIM Reason for Exam -> Sepsis [id number] XR CHEST PORT [# [id number]] Priority: STAT Class: Hospital Performed Specimen Collected: 02/08/2019 5:30 PM Resultin g Agency: [facility] Test ID: [id number] Reason for Exam -> Sepsis Released on: 02/08/2019 4:46 PM [id number] EKG, 12 LEAD, INITIAL [#[id number]] Priority: STAT Class: Hospital Performe d Standing Order Information Remaining Occurrences:0/1 Interval:ONE TIME Last released:1 Released orders: [place] Feb 08, 2019 4:46 PM by: DARRYL KIM Reason for Exam: -> S epsis [id number] EKG, 12 LEAD, INITIAL [#[id number]] Priority: STAT Class: Hospital Performe d Specimen Collected: 02/08/2019 4:18 PM Resulting Agency: [facility] Test ID: [id number] Reason for E xam: -> Sepsis Released on: 02/08/2019 4:46 PM [id number] VITAL SIGNS [#[id number]] Priority: Routine Class: Hospital Performed Standing Order Information Remaining Occurrences:0 /1 Interval:EVERY HOUR Last released:02/08/2019 Released orders: [place] Feb 08, 2019 4:46 PM by: DARRYL KIM [id number] STRICT I & O [#[id number]] Priority: Routine Class: Hospital Performed Standing Order Information Remaining Occurrences:0/1 Inter seema:CONTINUOUS Last released:02/08/2019 Released orders: [place] Feb 08, 2019 4:46 PM by: DARRYL SANTOYO [id number] NEUROLOGIC STATUS ASSESSMENT [#[id number]] Priority: Routine Class: Hospital Pe rformed Standing Order Information Remaining Occurrences:0/1 Interval:EVERY HOUR Last re leased:02/08/2019 Released orders: [place] Feb 08, 2019 4:46 PM by: DARRYL KIM [id number] NOTIFY PROVIDER: SPECIFY [#[id number]] Priority: STAT Class: Hospital Performed Standing Order Inf ormation Remaining Occurrences:0/1 Interval:CONTINUOUS Last released:02/08/2019 Releas ed orders: [place] Feb 08, 2019 4:46 PM by: DARRYL KIM Describe Order -> Notify provider within one hour to start vasopressors if patient is unable to maintain a MAP of greater than or equal to 65 mmHg despite fluid resuscitation [id number] HEMODYNAMIC MONITORING [#[id number]] Priority: STAT Class: Hospital Performed Standing Order Information Remainin g Occurrences:0/1 Interval:CONTINUOUS Last released:02/08/2019 Released orders : Sun Feb 08, 2019 4:46 PM by: DARRYL KIM Comment:In the event of persistent arterial hypoten elio after two hours of fluid resuscitation efforts, or initial lactate greater than or equal to 4 mmol/L (36 mg/dl) measure and record CVP and ScvO2 [id number] VITAL SIGNS [#[id number]] Priority: STAT Class: Hospital Performed Released on: 02/08/2019 4:46 PM [id number] 2 STRICT I & O [#[id number]] Priority: STAT Class: Hospital Performed Released o n: 02/08/2019 4:46 PM [id number] NEUROLOGIC STATUS ASSESSMENT [#[id number]] Priority: STAT Class: H ospital Performed Released on: 02/08/2019 4:46 PM [id number] NOTIFY PROVIDER: SPECIFY [#[id number]] Priority: STAT Class: Hospital Performed Describe Order -> Notify provider within one hour to start vasopressors if patient is unable to maintain a MAP of greater than or equal to 65 mmHg despite fluid resuscitation Released on: 02/08/2019 4:46 PM [id number] HEMODYNAMI C MONITORING [#[id number]] Priority: STAT Class: Hospital Performed Comment:In the eduardo nt of persistent arterial hypotension after two hours of fluid resuscitation efforts, or initial lactate greater than or equal to 4 mmol/L (36 mg/dl) measure and record CVP and ScvO2 Released on: 02/08/2019 4:46 PM [id number] VITAL SIGNS PER UNIT ROUTINE [#[id number]] Priority: Routine Class : Hospital Performed Standing Order Information Remaining Occurrences:N/A-not released Interval :CONTINUOUS Comment:More frequently if Indicated. [id number] WEIGH PATIENT [#[id number]] Priority: Routine Class: Hospital Performed Standing Order Information Remaining Occurrences:N /A-not released Interval:DAILY [id number] NOTIFY PROVIDER: VITAL SIGNS CHANGES [#[id number]] Priority: Routine Class: Hospital Performed Standing Order Information Remaining Occurrences:N/A-not released Interval:CONTINUOUS Temp -> Greater than 101 F HR -> Greater than 120 BPM or Less than 60 BPM RR -> Greater than 30 per minute or Less than 8 per minute SBP -> Greater than 180 mm Hg or Less th an 90 mm Hg O2 Sat -> Less than 90% UO -> Less than 120 ml in 4 hours [id number] INTAKE AND OUTPUT [#[id number]] Priority: Routine Class: Hospital Performed Standing Order Information Remaining Occurrences:N/A-not released Interval:EVERY 8 HOURS Comment:Measure and document total ever y 8 hours. [id number] APPLY/MAINTAIN SEQUENTIAL COMPRESSIO* [#[id number]] Priority: STAT Class: Hospital Perfo rmed Standing Order Information Remaining Occurrences:N/A-not released Interval:CONTINUOUS [id number] CARDIAC MONITORING [#[id number]] Priority: STAT Class: Hospital Performed Standing Or bassem Information Remaining Occurrences:N/A-not released Interval:Expires 48 hours Type: -> Remote Telemetry IVT11 SALINE LOCK IV [#[id number]] Priority: STAT Class: H ospital Performed Standing Order Information Remaining Occurrences:0/1 Interval:ONE TI ME Last released:02/08/2019 Released orders: Sun Feb 08, 2019 4:46 PM by: DARRYL KIM [id number] SALINE LOCK IV [#[id number]] Priority: STAT Class: Hospital Performe d Released on: 02/08/2019 4:46 PM IVT3 INSERT PERIPHERAL IV [#[id number]] Priority: Routine Class: Hospital Performed Standing Order Information Remaining Occurrences:N/A-not released Interval:ONE TIME SODIUM CHLORIDE 0.9 % IJ SYRG [#[id number]] Priority: STAT Class: N ormal ALBUTEROL SULFATE 0.083 % (0.83 MG/M* [#[id number]] Priority: STAT Class: Normal MODE OF DELIVERY -> Nebulizer ALBUTEROL SULFATE 0.083 % (0.83 MG/M* [#[id number]] Priority: STAT Cl ass: Normal MODE OF DELIVERY -> Nebulizer SODIUM CHLORIDE 0.9% BOLUS IV [#[id number]] Priority: STAT Class: Normal SODIUM CHLORIDE 0.9% BOLUS IV [#[id number]] Priorit y: STAT Class: Normal CEFEPIME 2 GRAM IVPB MBP [#[id number]] Priority: STAT Class: N ormal Antibiotic Indications -> Pneumonia (HAP) VANCOMYCIN IVPB < 1.5 GM [# [id number]] Priority: STAT Class: Normal Antibiotic Indications -> Pneumonia (HAP) VANCOMYCIN IVPB < 1.5 GM [#[id number]] Priority: STAT Class: Normal Antibiotic Indications -> Pn eumonia (HAP) IPRATROPIUM- ALBUTEROL 2.5 MG-0.5 MG/* [#[id number]] Priority: STAT Class: N ormal MODE OF DELIVERY -> Nebulizer BUDESONIDE 0.5 MG/2 ML NEB SUSPENSION [#[id number]] Priori ty: None Class: Normal MODE OF DELIVERY -> Nebulizer CINACALCET 30 MG TAB [# [id number]] Priority: None Class: Normal ALPRAZOLAM 0.25 MG TAB [#[id number]] Pr iority: None Class: Normal LAMOTRIGINE 25 MG TAB [#[id number]] Priority: None Clas s: Normal MULTIVITAMIN TAB [#[id number]] Priority: None Class: Normal PANTOPRAZOLE 40 MG GRANULES FOR ORAL* [#[id number]] Priority: None Class: Normal PPI INDICATION -> Sym ptomatic GERD .PHARMACY TO SUBSTITUTE PER PROTOCOL [#[id number]] Priority: None Class: N ormal SODIUM CHLORIDE 0.9 % IJ SYRG [#[id number]] Priority: None Class: Normal SODIUM CHLORIDE 0.9 % IJ SYRG [#[id number]] Priority: None Class: Normal ACETAMINOPHEN 32 5 MG TABLET [#[id number]] Priority: None Class: Normal HEPARIN (PORCINE) 5,000 UNIT/ML IJ S* [#[id number]] Priority: None Class: Normal CEFEPIME 1 GRAM IVPB MBP [#[id number]] Priority: STAT Class: Normal Antibiotic Indications -> Pneumonia (HAP) HAP duration of the rapy -> 7 days SODIUM CHLORIDE 0.9 % IV [#[id number]] Priority: STAT Class: N ormal PANTOPRAZOLE 40 MG GRANULES FOR ORAL* [#[id number]] Priority: STAT Class: Normal PPI I NDICATION -> Symptomatic GERD ONDANSETRON IVPB [#[id number]] Priority: STAT Cl ass: Normal ONDANSETRON (PF) 4 MG/2 ML INJECTION [#[id number]] Priority: STAT Class: N ormal CEFEPIME 1 GRAM IVPB MBP [#[id number]] Priority: STAT Class: Normal Antib iotic Indications -> Pneumonia (HAP) HAP duration of therapy -> 7 days CEFEPIME 2 GRAM IVPB MBP [#[id number]] Priority: STAT Class: Normal Antibiotic Indications -> Pneumonia (HAP ) HAP duration of therapy -> 7 days MULTIVITAMIN ORAL LIQUID [#[id number]] Prio rity: Routine Class: Historical Med VALPROIC ACID ( SODIUM SALT) 250 M* [#[id number]] Priority: R outine Class: Historical Med MD38 SEVERE SEPSIS AND SEPTIC SHOCK BUNDL* [#[id number]] Priority: STAT C lass: Hospital Performed Standing Order Information Remaining Occurrences:0/1 Interval:CONTIN UOUS Last released:02/08/2019 Released orders: Karla Feb 08, 2019 4:46 PM by: IXMENA KIM MD38 SEVERE SEPSIS AND SEPTIC SHOCK BUND* [#[id number]] Priority: STAT Class: Hospital Performe d Released on: 02/08/2019 4:46 PM [id number] IP CONSULT TO PRIMARY CARE PROVIDER [#[id number]] Priority : STAT Class: Hospital Performed Standing Order Information Remaining Occurrences:0/1 Inter seema:ONE TIME Last released:02/08/2019 Released orders: Karla Feb 08, 2019 6:24 PM by: DARRYL KIM Reason for Consult: -> admit Did you call or speak to the consulting provider? -> No C onsult To -> dr nelson hills [id number] IP CONSULT TO PRIMARY CARE PROVIDER [#[id number]] Priority: STAT Class: Hospital Performed Reason for Consult: -> admit Did you call or speak to the consulting provider? -> No Consult To -> dr nelson hills Released on: 02/08/2019 6:24 PM CON5 IP CONSULT TO INFECTIOUS DISEAS ES [#[id number]] Priority: Routine Class: Hospital Performed Standing Order Information Remainin g Occurrences:0/1 Interval:ONE TIME Last released:02/08/2019 Released orders : Karla Feb 08, 2019 7:26 PM by: CHAY PALMA Reason for Consult: -> sepsis Did y ou call or speak to the consulting provider? -> No Consult To -> salu CON8 IP CONSULT TO NEPHROLOGY [#[id number]] Priority: Routine Class: Hospital Performed Standing Order Information Remaining Occurrences:0/1 Interval:ONE TIME Last released:02/08/2019 Released orders : Karla Feb 08, 2019 7:26 PM by: CHAY PALMA Reason for Consult: -> hyponatremia Did you call or speak to the consulting provider? -> No Consult To -> dgaim CON5 IP CONSULT TO INFE CTIOUS DISEASES [#[id number]] Priority: Routine Class: Hospital Performed Reason for Consult: -> se psis Did you call or speak to the consulting provider? -> No Consult To -> salu Released on: 02/08 7:26 PM CON8 IP CONSULT TO NEPHROLOGY [#[id number]] Priority: Routine Class : Hospital Performed Reason for Consult: -> hyponatremia Did you call or speak to the consulting prov ider? -> No Consult To -> dgaim Released on: 02/08/2019 7:26 PM [id number] INITIAL PHYSICIAN ORDER: IN PATIENT [#[id number]] Priority: Routine Class: ADT Pend Transfer Standing Order Information Remain ing Occurrences:0/1 Interval:ONE TIME Last released:02/08/2019 Released orders : Karla Feb 08, 2019 7:23 PM by: CHAY PALMA Status: -> INPATIENT Inpatient Hosp italization Certified Necessary for the Following Reasons -> 3- . P- a- t- i- e- n- t r- e- c- e- i- v- i- n- g t- r- e- a- t- m- e- n- t t- h- a- t c- a- n o- n- l- y b- e p- r- o- v- i- d- e- d i- n a- n i- n- p- a- t- i- e- n- t s- e- t- t- i- n- g (- f- u- r- t- h- e - r c- l- a- r- i- f- i- c- a- t- i- o- n i- n H- &- P d- o- c- u- m- e- n- t- a- t- i- o- n- ) Admitting Diagnosis -> SOB (shortness of breath) Admitting Physician -> CHAY PALMA Attending Physician -> RA LUCINDA PALMA Estimated Length of Stay -> 3- 4 Midnights Discharge Plan: -> Extended Care Facility (e.g. Ad ult Home, Detention, etc.) [id number] INITIAL PHYSICIAN ORDER: INPATIENT [#[id number]] Priority: Routine Class: ADT Pend Transfer Status: -> INPATIENT Inpatient Hospitalization Certified Necessary for the Following Reasons -> 3- . P- a- t- i- e- n- t r- e- c- e- i- v- i- n- g t- r- e- a- t- m- e- n- t t- h- a- t c- a- n o- n- l- y b- e p- r- o- v- i- d- e- d i- n a- n i- n- p- a- t- i- e- n- t s- e- t- t- i- n- g (- f- u- r- t- h- e- r c- l- a- r- i- f- i- c- a- t- i- o- n i- n H- &- P d- o- c- u- m - e- n- t- a- t- i- o - n- ) Admitting Diagnosis -> SOB (shortness of breath) Admitting Physician -> CHAY FLORES Attending Physician -> CHAY PALMA Estimated Length of Stay -> 3-4 Midnights Discharge Plan: -> Extended Care Facility (e.g. Adult Home, Detention, etc.) Released on: 02/08/2019 7:23 PM COD2 FULL CODE [#[id number]] Priority: STAT Class: Hospital Performed Standing Order Information Remaining Occurrences:N/A-not released Interval:CONTINUOUS CON54 IP CONSULT TO PULMONOLOGY [#[id number]] Priority: Routine Class: Hospital Performed Standing Order Information Remainin g Occurrences:0/1 Interval:ONE TIME Last released:02/08/2019 Released orders : Sun Feb 08, 2019 7:26 PM by: CHAY PALMA Reason for Consult: -> sob Did you call or speak to the consulting provider? -> No Consult To -> john CON54 IP CONSULT TO PULMON OLOGY [#[id number]] Priority: Routine Class: Hospital Performed Reason for Consult: -> so b Did you call or speak to the consulting provider? -> No Consult To -> malmazada Released on: 02/08/2019 7:26 PM [id number] DIET TUBE FEEDINGS [#[id number]] Priority: STAT Class: H ospital Performed Standing Order Information Remaining Occurrences:0/1 Interval:CONTIN UOUS Last released:02/08/2019 Released orders: Karla Feb 08, 2019 7:26 PM by: CHAY MIRANDA Formula options -> [facility] Delivery Method -> Continuous Starting rate (mL/hr) -> 35 [id number] DIET TUBE FEEDINGS [#[id number]] Priority: STAT Class: Hospital Performe d Formula options -> [employer] Delivery Method -> Continuous Starting rate (mL/hr) -> 35 Relea sed on: 02/08/2019 7:26 PM [id number] RT--OXIMETRY, SPOT CHECK [#[id number]] Priority: Routine C lass: Hospital Performed Standing Order Information Remaining Occurrences:0/1 Interval:CONTIN UOUS Last released:02/08/2019 Released orders: Karla Feb 08, 2019 7:26 PM by: CHAY MIRANDA [id number] RT--OXIMETRY, SPOT CHECK [#[id number]] Priority: Routine Class : Hospital Performed Released on: 02/08/2019 7:26 PM [id number] RT--OXIMETRY, SPOT CHECK [# [id number]] Priority: Routine Class: Hospital Performed Standing Order Information Remaining Occurre nces:0/1 Interval:CONTINUOUS Last released:02/08/2019 Released orders: Karla Feb 08, 019 7:28 PM by: CHAY PALMA [id number] RT--OXYGEN CANNULA [#[id number]] Priority: Routine Class: Hospital Performed Standing Order Information Remaining Occurrences:0 /1 Interval:CONTINUOUS Last released:02/08/2019 Released orders: Karla Feb 08, 2019 7:28 PM by: CHAY PALMA LPM -> 4 Indications for O2? -> HYPOXIA [id number] RT--OXIMETR Y, SPOT CHECK [#[id number]] Priority: Routine Class: Hospital Performed Released on: 02/08 7:28 PM [id number] RT--OXYGEN CANNULA [#[id number]] Priority: Routine Class : Hospital Performed LPM -> 4 Indications for O2? -> HYPOXIA Released on: 02/08/2019 7:28 PMFEvelio solorzano MR#: [id number] * Rm: 371-02Ht: 5' 2" Wt: 125 lb Cod e: Prior Iso:Diagnosis:SOB (shortness of breath) [R06.02]Allergies: No Known Allergies -------- Current as of: 02/08/192144 GI=Given IC=IV Complet ed NB=New Bag --albuterol-ipratropium (DUO-NEB) 2.5 MG-0.5 MG/3 ML #[id number] Admin Amount: 3 mL Ordered Dose: 3 mL Route: Nebulization Freq: NOW Start Date: 11/07/18 No administration times (back 96 hours, ahead 96 hours). ------methylPREDNISolone (PF) (Solu-MEDROL) injection 125 mg #[id number] Admin Amount: 2 mL = 125 mg of 125 mg/2 mL Ordered Dose: 125 mg Route: Int raVENous Freq: NOW Start Date: 11/07/18 No administration times (back 96 hours, ahe ad 96 hours). ------cefTRIAXone (ROCEPHIN) 1 g in 0.9% sodium chloride (MBP/ADV) 50 m L M*#[id number] Admin Amount: 1 g Ordered Dose: 1 g Route: IntraVENous Freq: NOW Start Date: 11/07/18 Rate: 100 mL/hr Duration: 30 Minutes No administration times (back 96 hours, ahead 96 hours). ------azithromycin (ZITHROMAX) 500 mg in NS 250 mL #[id number] Admin Amount: 250 mL = 500 mg of 500 mg/250 mL Ordered Dose: 500 mg Route: Int raVENous Freq: NOW Start Date: 11/07/18 Rate: 250 mL/hr Duration: 6 0 Minutes No administration times (back 96 hours, ahead 96 hours). ------iopamidol (ISOVUE-370) 76 % injection 100 mL #[id number] Admin Amount: 100 mL Ordered Dose: 100 mL Route: IntraVENous Freq: RAD ONCE Start Date: 11/07/18 No administration times (back 96 hours, ahead 96 hours). ------sodium chloride 0.9 % bolus infusion 500 mL #[id number] Admin Amount: 500 mL Ordered Dose: 500 mL Route: IntraVENo us Freq: ONCE Start Date: 11/08/18 Rate: 666.7 mL/hr Duration: 45 Danielle tasha No administration times (back 96 hours, ahead 96 hours). ------ALPRAZolam (XANAX) tablet 0.25 mg #[id number] Admin Amount: 1 Tab (1 x 0.25 mg Tab) Ordered Dose: 0.25 mg Route: Oral Dg q: DAILY Start Date: 11/08/18 No administration times (back 96 hours, ahead 96 hours).Evelio Garnett MR#: [id number] * Rm: 371-02Ht: 5' 2" Wt: 125 lb Cod e: Prior Iso:Diagnosis:SOB (shortness of breath) [R06.02]Allergies: No Known Allergies -------- Current as of: 02/08/192144 GI=Given IC=IV Complet ed NB=New Bag --cefTRIAXone (ROCEPHIN) 1 g in 0.9% sodium chloride (MBP/ADV) 50 mL M*# [id number] Admin Amount: 1 g Ordered Dose: 1 g Route: IntraVENous Freq: EVERY 24 HOURS Start Date: 11/08/18 Rate: 100 mL/hr Duration: 30 Minutes No administration times (back 96 hours, ahead 96 hours). ------azithromycin (ZITHROMAX) 500 mg in 0.9% sodium chloride 250 mL IV PB #[id number] Admin Amount: 500 mg Ordered Dose: 500 mg Route: IntraVENous Freq: EVERY 24 H OURS Start Date: 11/08/18 Rate: 250 mL/hr Duration: 60 Minutes No administration times (back 96 hours, ahead 96 hours). ------LORazepam (ATIVAN) injection 0.5 mg #[id number] Admin Amount: 0.25 mL = 0.5 mg of 2 mg/mL Ordered Dose: 0.5 mg Ro manzanita: IntraVENous Freq: ONCE Start Date: 11/10/18 No administration times (back 96 hours, ahead 96 hours). ------LORazepam (ATIVAN) injection 2 mg #[id number] Admin Amount: 1 mL = 2 mg of 2 mg/mL Ordered Dose: 2 mg Route: Int raVENous Freq: ONCE Start Date: 11/11/18 No administration times (back 96 hours, ahe ad 96 hours). ------LORazepam (ATIVAN) injection 0.5 mg #[id number] Admin Amount: 0.25 mL = 0.5 mg of 2 mg/mL Ordered Dose: 0.5 mg Ro manzanita: IntraVENous Freq: ONCE Start Date: 11/11/18 No administration times (back 96 hours, ahead 96 hours). ------acetaminophen (OFIRMEV) infusion 1,000 mg #[id number] Admin Amount: 100 mL = 1,000 mg of 1,000 mg/100 mL Ordered Dose: 1,000 mg Ro manzanita: IntraVENous Freq: EVERY 6 HOURS Start Date: 11/17/18 Rate: 400 mL/hr Durat ion: 15 Minutes No administration times (back 96 hours, ahead 96 hours). ------HYDROmorphone (DILAUDID) syringe 0.5 mg #[id number] Admin Amount: 0.5 mL = 0.5 mg of 0.5 mg/0.5 mL Ordered Dose: 0.5 mg Route: Int raVENous Freq: EVERY 6 HOURS NEEDED Start Date: 11/17/18 No administration times (back 96 hours, ahe ad 96 hours).Evelio Carlin MR#: [id number] * Rm: 371-02Ht: 5' 2" Wt: 1 25 lb Code: Prior Iso:Diagnosis:SOB (shortness of breath) [R06.02]Allergies: No Known Allergies -------- Current as of: 02/08/192144 GI=Given IC=IV Complet ed NB=New Bag --acetaminophen (OFIRMEV) infusion 1,000 mg #[id number] Admin Amount: 100 mL = 1,000 mg of 1,000 mg/100 mL Ordered Dose: 1,000 mg Ro manzanita: IntraVENous Freq: EVERY 6 HOURS Start Date: 11/18/18 Rate: 400 mL/hr Durat ion: 15 Minutes No administration times (back 96 hours, ahead 96 hours). ------piperacillin-tazobactam (ZOSYN) 3.375 g in 0.9% sodium chloride (MBP*#[id number] Admin Amount: 3.375 g Ordered Dose: 3.375 g Route: IntraVENous Freq: EVERY 8 HOURS Start Date: 11/18/18 Rate: 25 mL/hr Duration: 240 Minutes No administrati on times (back 96 hours, ahead 96 hours). ------potassium chloride 10 mEq in 100 ml IVPB #[id number] Admin Amount: 100 mL = 10 mEq of 10 mEq/100 mL Ordered Dose: 10 mEq Route: Int raVENous Freq: EVERY 1 HOUR Start Date: 11/19/18 Rate: 100 mL/hr Duration: 6 0 Minutes No administration times (back 96 hours, ahead 96 hours). ------diatrizoate tiffani-diatrizoat sod (RUTHYGASTROVIEW,GASTRO GRAFIN) 66-10 % *#[id number] Admin Amount: 30 mL Ordered Dose: 30 mL Route: Oral Freq: RAD O NCE Start Date: 11/19/18 No administration times (back 96 hours, ahead 96 hours). ------acetaminophen (OFIRMEV) infusion 1,000 mg #[id number] Admin Amount: 100 mL = 1,000 mg of 1,000 mg/100 mL Ordered Dose: 1,000 mg Ro manzanita: IntraVENous Freq: EVERY 6 HOURS Start Date: 11/21/18 Rate: 400 mL/hr Durat ion: 15 Minutes No administration times (back 96 hours, ahead 96 hours). ------acetaminophen (OFIRMEV) infusion 1,000 mg #[id number] Admin Amount: 100 mL = 1,000 mg of 1,000 mg/100 mL Ordered Dose: 1,000 mg Ro manzanita: IntraVENous Freq: EVERY 6 HOURS Start Date: 11/22/18 Rate: 400 mL/hr Durat ion: 15 Minutes No administration times (back 96 hours, ahead 96 hours). ------LORazepam (ATIVAN) tablet 0.5 mg #[id number] Admin Amount: 1 Tab (1 x 0.5 mg Tab) Ordered Dose: 0.5 mg Route: Per G Tube F req: EVERY BEDTIME Start Date: 11/23/18 No administration times (back 96 hours, ahead 96 hours).Evelio Garnett MR#: [id number] * Rm: 371-02Ht: 5' 2" Wt: 125 lb Cod e: Prior Iso:Diagnosis:SOB (shortness of breath) [R06.02]Allergies: No Known Allergies -------- Current as of: 02/08/192144 GI=Given IC=IV Complet ed NB=New Bag --vancomycin (VANCOCIN) 1,250 mg in 0.9% sodium chloride 250 mL IVPB #[id number] Admin Amount: 1,250 mg Ordered Dose: 1,250 mg Route: IntraVENous Freq: EVERY 12 HO URS Start Date: 11/24/18 Rate: 125 mL/hr Duration: 120 Minutes No administration times (back 96 hours, ahead 96 hours). ------potassium chloride (KLOR-CON) packet for solution 20 mEq #[id number] Admin Amount: 1 Packet (1 x 20 mEq Packet) Ordered Dose: 20 mEq Ro manzanita: Oral Freq: 2 TIMES DAILY WITH MEALS Start Date: 11/25/18 No administration times (back 96 hours, ahe ad 96 hours). ------piperacillin-tazobactam (ZOSYN) 3.375 g in 0.9% sodium chloride ([facility]*#[id number] Admin Amount: 3.375 g Ordered Dose: 3.375 g Route: IntraVENous Freq: NOW Start Date: 12/12/18 Rate: 200 mL/hr Duration: 30 Minutes No administrati on times (back 96 hours, ahead 96 hours). ------albuterol-ipratropium (DUO-NEB) 2.5 MG-0.5 MG/3 ML #[id number] Admin Amount: 3 mL Ordered Dose: 3 mL Route: Nebulization Freq: NOW Start Date: 12/12/18 No administration times (back 96 hours, ahead 96 hours). ------methylPREDNISolone (PF) (Solu-MEDROL) injection 125 mg #[id number] Admin Amount: 2 mL = 125 mg of 125 mg/2 mL Ordered Dose: 125 mg Route: Int raVENous Freq: NOW Start Date: 12/12/18 No administration times (back 96 hours, ahe ad 96 hours). ------albuterol-ipratropium (DUO-NEB) 2.5 MG-0.5 MG/3 ML #[id number] Admin Amount: 3 mL Ordered Dose: 3 mL Route: Nebulization Freq: NOW Start Date: 12/12/18 No administration times (back 96 hours, ahead 96 hours). ------albuterol-ipratropium (DUO-NEB) 2.5 MG-0.5 MG/3 ML #[id number] Admin Amount: 3 mL Ordered Dose: 3 mL Route: Nebulization Freq: NOW Start Date: 12/12/18 No administration times (back 96 hours, ahead 96 hours).Ivelisse Carlin MR#: [id number] * Rm: 371-02Ht: 5' 2" Wt: 125 lb Code: Prior Iso:Diagnosis:SOB (shortness of breath) [R06.02]Allergies: No Known Allergies -------- Current as of: 02/08/192144 GI=Given IC=IV Complet ed NB=New Bag -- Followed by Linked Group (Order count: 2)sodium chloride 0.9 % jeff aspen infusion 1,000 mL #[id number] Admin Amount: 1,000 mL Ordered Dose: 1,000 mL Route: IntraVENous Freq: ONCE Start Date: 12/12/18 No administration times ( back 96 hours, ahead 96 hours). - Followed by - - - - - - - - - - - - - - - - - - - - - - - - - - - - - - - -s odium chloride 0.9 % bolus infusion 593 mL #[id number] Admin Amount: 593 mL Ordere d Dose: 593 mL Route: IntraVENous Freq: ONCE Start Date: 12/12/18 No adm inistration times (back 96 hours, ahead 96 hours). ------iopamidol (ISOVUE-370) 76 % injection 125 mL #[id number] Admin Amount: 125 mL Ordered Dose: 125 mL Route: IntraVENous Freq: RAD ONCE Start Date: 12/17/18 No administration times (back 96 hours, ahead 96 hours). ------lidocaine (XYLOCAINE) 20 mg/mL (2 %) injection 100 mg #[id number] Admin Amount: 5 mL = 100 mg of 2,000 mg/100 mL Ordered Dose: 5 mL Route: IntraDERMal Freq: ONCE Start Date: 12/19/18 No administration times (b ack 96 hours, ahead 96 hours). ------oxyCODONE-acetaminophen (PERCOCET) 5-325 mg per tablet 1 Tab #[id number] Admin Amount: 1 Tab Ordered Dose: 1 Tab Route: Oral Freq: EVERY 8 HOURS NEEDED Start Date: 12/19/18 No administration times (back 96 hours, ahead 96 hours). ------furosemide (LASIX) injection 20 mg #[id number] Admin Amount: 2 mL = 20 mg of 10 mg/mL Ordered Dose: 20 mg Ro manzanita: IntraVENous Freq: ONCE Start Date: 12/26/18 No administration times (back 96 hours, ahead 96 hours). ------furosemide (LASIX) injection 20 mg #[id number] Admin Amount: 2 mL = 20 mg of 10 mg/mL Ordered Dose: 20 mg Route: Int raVENous Freq: ONCE Start Date: 12/29/18 No administration times (back 96 hours, ahe ad 96 hours).Eveilo Carlin MR#: [id number] * Rm: 371-02Ht: 5' 2" Wt: 1 25 lb Code: Prior Iso:Diagnosis:SOB (shortness of breath) [R06.02]Allergies: No Known Allergies -------- Current as of: 02/08/192144 GI=Given IC=IV Complet ed NB=New Bag --albuterol-ipratropium (DUO-NEB) 2.5 MG-0.5 MG/3 ML #[id number] Admin Amount: 3 mL Ordered Dose: 3 mL Route: Nebulization Freq: NOW Start Date: 01/10/19 No administration times (back 96 hours, ahead 96 hours). ------methylPREDNISolone (PF) (Solu-MEDROL) injection 125 mg #[id number] Admin Amount: 2 mL = 125 mg of 125 mg/2 mL Ordered Dose: 125 mg Route: Int raVIdalia Freq: NOW Start Date: 01/10/19 No administration times (back 96 hours, e ad 96 hours). ------albuterol-ipratropium (DUO-NEB) 2.5 MG-0.5 MG/3 ML #[id number] Admin Amount: 3 mL Ordered Dose: 3 mL Route: Nebulization Freq: NOW Start Date: 01/10/19 No administration times (back 96 hours, ahead 96 hours). ------acetaminophen (TYLENOL) tablet 650 mg #[id number] Admin Amount: 2 Tab (2 x 325 mg Tab) Ordered Dose: 650 mg Route: Per Carol Tub e Freq: NOW Start Date: 01/10/19 No administration times (back 96 hours, e ad 96 hours). ------piperacillin-tazobactam (ZOSYN) injection 3.375 g #[id number] Admin Amount: 3.375 g Ordered Dose: 3.375 g Route: IntraVENous Freq: NOW Start Date: 01/10/19 No administration times (back 96 hours, ahead 96 hours). ------vancomycin (VANCOCIN) 1,000 mg in 0.9% sodium chloride 250 mL IVPB #[id number] Admin Amount: 1,000 mg Ordered Dose: 1,000 mg Route: IntraVENous Freq: ONCE Start Date: 01/10/19 Rate: 125 mL/hr Duration: 120 Minutes No administ ration times (back 96 hours, ahead 96 hours). ------ Followed by Linked Group (Order count: 2)sodium chloride 0. 9 % bolus infusion 1,000 mL #[id number] Admin Amount: 1,000 mL Ordered Dose: 1,000 mL Route: IntraVENous Freq: ONCE Start Date: 01/10/19 No administration t imes (back 96 hours, ahead 96 hours).Evelio Carlin MR#: [id number] * Rm: 37 04-16Ht: 5' 2" Wt: 125 lb Code: Prior Iso:Diagnosis:SOB (shortness of breath) [R06.02]Allergies: No Known Allergies -------- Current as of: 02/08/19 2145 GI=Given IC=IV Complet ed NB=New Bag - Followed by - - - - - - - - - - - - - - - - - - - - - - - - - - - - - - - -sodium chloride 0 .9 % bolus infusion 551 mL #[id number] Admin Amount: 551 mL Ordered Dose: 551 mL Route: IntraVENous Freq: ONCE Start Date: 01/10/19 No administration t imes (back 96 hours, ahead 96 hours). ------0.9% sodium chloride (MBP/ADV) infusion #[id number] Ordered Dose: Route: Freq: Start Date: No administration times (back 96 hours, ahead 96 hours). ------influenza vaccine (65 yrs+)(PF) (FLUZONE HIGH-DOSE) inject io*#[id number] Admin Amount: 0.5 mL Ordered Dose: 0.5 mL Route: IntraMUSCular Freq: PRIOR TO DISCHARGE Start Date: 01/10/19 No administration times (back 96 hours, ahead 96 hours). ------piperacillin-tazobactam (ZOSYN) 3.375 g in 0.9% sodium chloride (MBP*#[id number] Admin Amount: 3.375 g Ordered Dose: 3.375 g Route: IntraVENous Freq: EVERY 8 HOURS Start Date: 01/10/19 Rate: 25 mL/hr Duration: 240 Minutes No administrat ion times (back 96 hours, ahead 96 hours). ------potassium, sodium phosphates (NEUTRA-PHOS) packet 1 Packet #[id number] Admin Amount: 1 Packet Ordered Dose: 1 Packet Route: Per G Tube Freq: 4 TIMES DAILY Start Date: 01/12/19 No administration times (back 96 hours, ahead 96 hours). ------iopamidol (ISOVUE 300) 61 % contrast injection 100 mL #[id number] Admin Amount: 100 mL Ordered Dose: 100 mL Route: IntraVENous Freq: RAD ONCE Start Date: 01/15/19 No administration times (back 96 hours, ahead 96 hours). ------sodium phosphate 15 mmol in 0.9% sodium chlorid e 250 mL infusion #[id number] Ordered Dose: Route: IntraVENous Freq: ONCE Start Date: 01/20/19 Rate: 63.8 mL/hr Duration: 4 Hours No administration patria es (back 96 hours, ahead 96 hours).Evelio Carlin MR#: [id number] * Rm: 37 04-16Ht: 5' 2" Wt: 125 lb Code: Prior Iso:Diagnosis:SOB (shortness of breath) [R06.02]Allergies: No Known Allergies -------- Current as of: 02/08/192144 GI=Given IC=IV Complet ed NB=New Bag --acetaZOLAMIDE SR (DIAMOX) capsule 500 mg #[id number] Admin Amount: 1 Cap (1 x 500 mg Cap) Ordered Dose: 500 mg Route: Oral Freq: O NCE Start Date: 01/23/19 No administration times (back 96 hours, ahead 96 hours). ------sodium chloride (NS) flush 5-10 mL #[id number] Admin Amount: 5-10 mL Ordered Dose: 5-10 mL Route: IntraVENous Freq: NE EDED Start Date: 02/08/19 No administration times (back 96 hours, ahead 96 hours). ------albuterol (PROVENTIL VENTOLIN) nebulizer solution 2.5 mg #[id number] Admin Amount: 3 mL = 2.5 mg of 2.5 mg/3 mL Ordered Dose: 2.5 mg Route: Neb ulization Freq: NOW Start Date: 02/08/19 Administration times (back 96 hours, ahe ad 96 hours): 02/08/19: 1701GI -----albuterol (PROVENTIL VENTOLIN) nebulizer solution 2.5 mg #[id number] Admin Amount: 3 mL = 2.5 mg of 2.5 mg/3 mL Ordered Dose: 2.5 mg Route: Neb ulization Freq: NOW Start Date: 02/08/19 Administration times (back 96 hours, ahe ad 96 hours): 02/08/19: 1701GI ----- Followed by Linked Group (Order count: 2)sodium chloride 0.9 % jeff aspen infusion 1,000 mL #[id number] Admin Amount: 1,000 mL Ordered Dose: 1,000 mL Route: IntraVENous Freq: ONCE Start Date: 02/08/19 Administration times (ba ck 96 hours, ahead 96 hours): 02/08/19: 1657NB 1943IC - Followed by - - - - - - - - - - - - - - - - - - - - - - - - - - - - - - - -sodium chloride 0.9 % bolus infusion 701 mL #[id number] Admin Am ount: 701 mL Ordered Dose: 701 mL Route: IntraVENous Freq: ONCE Start D ate: 02/08/19 Administration times (back 96 hours, ahead 96 hours): 02/08/19: 1657NB 3MURRAYGunner Carlin MR#: [id number] * Rm: 371-02Ht: 5' 2" Wt: 125 lb Code: Prior Iso:Diagnosis:SOB (shortness of breath) [R06.02]Allergies: No Known Allergies -------- Current as of: 02/08/192144 GI=Given IC=IV Complet ed NB=New Bag --cefepime (MAXIPIME) 2 g in 0.9% sodium chloride (MBP/ADV) 100 mL P #[id number] Admin Amount: 2 g Ordered Dose: 2 g Route: IntraVENous Freq: NOW Start Date: 02/08/19 Rate: 200 mL/hr Duration: 30 Minutes Administration patria es (back 96 hours, ahead 96 hours): 02/08/19: 1931NB 1943IC -----vancomycin (VANCOCIN) 1,000 mg in 0.9% sodium chloride 250 mL IVPB #[id number] Admin Amount: 1,000 mg Ordered Dose: 1,000 mg Route: IntraVENous Freq: ONCE Start Date: 02/08/19 Rate: 125 mL/hr Duration: 120 Minutes Administra tion times (back 96 hours, ahead 96 hours): 02/08/19: 1959NB -----albuterol-ipratropium (DUO-NEB) 2.5 MG-0.5 MG/3 ML #[id number] Admin Amount: 3 mL Ordered Dose: 3 mL Route: Nebulization Freq: EVERY 4 HOURS RESP Start Date: 02/08/19 Administration times (back 96 hours, ahead 96 hours): 02/08/19: 2038G I 02/09/19: 0000 0400 0800 1200 1600 199902/10/19: 0000 0400 0800 1200 1600 199902/11/19: 0000 0400 0800 1200 1600 199902/12/19: 0000 0400 0800 1200 1600 1999 ---0.9% sodium chloride infusion #[id number] Ordered Dose: 100 mL/hr Route: IntraVENous Freq: CONTINUOUS Start Date: 02/08/19 Rate: 100 mL/hr Duration: Administration times (back 96 hours, ahead 96 hours): 02/08/19: 1942NB -----pantoprazole (PROTONIX) granules for oral suspension 40 mg #[id number] Admin Amount: 40 mg Ordered Dose: 40 mg Route: Per NG tube Freq: DAILY BEFO RE BREAKFAST Start Date: 02/09/19 Administration times (back 96 hours, ahead 96 hours): 02/09/19: 72902/10/19: 72902/11/19: 72902/12/19: 729Evelio Carlin MR#: [id number] * Rm: [id number]: 5' 2" Wt: 125 lb Code: Prior Iso:Diagnosis:SOB (shortness of breath) [R06.02]Allergies: No Known Allergies -------- Current as of: 02/08/192144 GI=Given IC=IV Complet ed NB=New Bag --ondansetron (ZOFRAN) injection 4 mg #[id number] Admin Amount: 2 mL = 4 mg of 4 mg/2 mL Ordered Dose: 4 mg Route: Int raVENous Freq: EVERY 6 HOURS NEEDED Start Date: 02/08/19 No administration times (back 96 hours, ahe ad 96 hours). ------cefepime (MAXIPIME) 2 g in 0.9% sodium chloride (MBP/ADV) 100 mL [facility] #[id number] Admin Amount: 2 g Ordered Dose: 2 g Route: IntraVENous Freq: EVERY 8 HOUR S Start Date: 02/09/19 Rate: 200 mL/hr Duration: 30 Minutes Administration patria es (back 96 hours, ahead 96 hours): 02/09/19: 33002/10/19: 33002/11/19 : 33002/12/19: 330 1130 1930 ED Current OP Medicationsmultiv itamin (MULTI-DELYN, WELLESSE) liqdSi mL by Per G Tube route daily.Dispense Amount:Start Date:End Pan e:Doc. Provider: Edie Floresvalproic acid, as sodium salt, (DEPAKENE) 250 mg/5 mL (5 mL) soln oral solutionSi mg by Per G Tube route every twelve (12) hours.Dispense Amount:Start Date:End Date:Doc. Provider : Edie Floresclorazepate (TRANXENE) 3.75 mg tabletSi Tab by Per G Tube route nightly. Max Daily Amou nt: 3.75 mg.Dispense Amount:30 TabStart Date:12/30/2018End Date:Doc. Provider: Mili Hills DOlamoTRIgine (LAMICTAL) 25 mg tabletSi Tabs by Per G Tube route two (2) times a day.Dispense Amount:60 TabStart Date:12/14End Date:Doc. Provider: Mili Hills DOalbuterol-ipratropium (DUO-NEB) 2.5 mg-0.5 mg/3 ml nebuSi m L by Nebulization route every four (4) hours as needed for Cough (wheezing, shortness of breath).Patient taking differently: 3 mL by Nebulization route every six (6) hours.Dispense Amount:30 NebuleStart Pan e:12/30/2018End Date:Doc. Provider: Mili Hills DOacetaminophen (TYLENOL) 32MG/ML soln solutionSig:Take 20.3 mL by mouth every four (4) hours as needed for Pain or Fever.Dispense Amount:250 mLStart Date:1 End Date:Doc. Provider: Mili Hilsl DOinfluenza vaccine 2019-20, 65 yrs+,,PF, (FLUZONE HIGH-DOSE ) syrg injectionSi.5 mL by IntraMUSCular route PRIOR TO DISCHARGE.Dispense Amount:1 SyringeStart Date:01/24/2019End Date:Doc. Provider: Mili Hills DOcholestyramine-aspartame (QUESTRAN LIG HT) 4 gram packetSig:Take 1 Packet by mouth two (2) times a day.Dispense Amount:60 PacketStart Date: 01/24/2019End Date:Doc. Provider: Mili Hills DOcinacalcet (SENSIPAR) 30 mg tabletSig:Take 2 Tabs b y mouth daily.Dispense Amount:60 TabStart Date:12/30/2018End Date:Doc. Provider: Mili Hills DOalbuterol-i pratropium (DUO-NEB) 2.5 mg-0.5 mg/3 ml nebuSi mL by Nebulization route every six (6) hours. Every 6 hours while awakeDispense Amount:30 NebuleStart Date:12/30/2018End Date:Doc. Provider: Mili Hills DObudesonide (PULMICORT) 0.5 mg/2 mL nbspSi mL by Nebulization route two (2) times a day.Dispense Amount:60 EachStart Date:12/30/2018End Date:Doc. Provider: Mili Hills DObacitracin 500 unit/gram ointmentSig:Apply 1 Packet to affected area two (2) times a day. Indications: minor skin infection due to bacteria, facial scabsD ispense Amount:20 PacketStart Date:12/30/2018End Date:Doc. Provider: Mili Hills DOmultivitamin (ONE A D AY) tablet (Status: Discontinued)Si Tab by Per G Tube route daily.Dispense Amount:30 TabStart Date:End Date:02/08/2019Doc. Provider: Mili Hills DOpantoprazole (PROTONIX) 40 mg granules for oral suspensionSi mg by Per G Tube route Daily (before breakfast).Dispense Amount:30 EachStart Date:11/28/2018End Date:Doc. Provider: Mili Hills, DOvalproate (DEPAKENE) 250 mg/5 mL syrup (Status: Di scontinued)Sig:Take 750 mg by mouth two (2) times a day.Dispense Amount:Start Date:End Date:02/08/2019Doc . Provider: Provider, Historical ED Prescriptions None on FileFollow-up InformationNone Name Value Range Interpretation Code Description Data [facility] Supporting Document(s ) ID Date Data Source [id number] 02/08/2019 08:59:08 PM EDT [facility] TRANSFER - IN REPORT:Verbal report recei nathaly from Karlos(name) on Evelio Carlin being receivedfrom ER(unit) for routine progression of careReport consisted of patient's Situation, Background, Assessm ent andRecommendations(SBAR).Information from the following report(s) SBAR, Kardex, In take/Output and MAR wasreviewed with the transferring nurse.Opportunity for ques tions and clarification was provided.Assessment to be completed upo n patient's arrival to unit and care assumed. Name Value Range Interpretation Code Description Data [facility] Supporting Document(s ) ID Date Data Source [id number] 02/08/2019 08:58:22 PM EDT [facility] TRANSFER - OUT REPORT:Verbal report give n to Ubaldo PITTS on Evelio Carlin being transferred to [facility] routine progression of careReport consisted of patient's Situation, Background, Assessment andRec ommendations(SBAR).Information from the following report(s) SBAR, ED Summary, In take/Output, MARand Recent Results was reviewed with the receiving nurse.Lines: Peripheral IV 02/08/19 Right Arm (Active)Site Assessment Clean, dry, & intact 02/09/20 19 4:37 PMPhlebitis Assessment 0 02/08/2019 4:37 PMInfiltration Assessment 0 019 4:37 PMDressing Status Clean, dry, & intact 02/08/2019 4:37 PMDressing Type Transparent 02/08/2019 4:37 PMHub Color/Line Status [place] 02/08/2019 4:37 PMOpportuni ty for questions and clarification was provided.Patient transported with: Monit orO2 @ 4 litersRegistered Nurse Name Value Range Interpretation Code Description Data Harriett rce(s) Supporting Document(s ) ID Date Data Source [id number] 02/08/2019 08:39:31 PM EDT [facility] The history is provided by the patient.4 :40 PM: Evelio Carlin is a 68 y.o. male with h/o oxygen dependency,schizophrenia , COPD and pneumonia who presents to the ED from [facility] for shortn ess of breath this afternoon. It is reported that (Internal Medicine) in structed for the patient to visit the ED. Thepatient is unable to give any history .Dr. 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) Pneumoni a Psychiatric disorder Pulmonary emboli (HCC) Schizophrenia (HCC)No past surgic al history on file.No family history on file.Social HistorySocioeconomic History Marital status: SINGLE Spouse name: Not on file Number of children: Not on file Y ears of education: Not on file Highest education level: Not on fileOccupational History Not on fileSocial Needs Financial resource strain: Not on file Food insec urity: Worry: Not on file Inability: Not on file Transportation needs: Medical: No t on file Non-medical: Not on fileTobacco Use Smoking status: Never Smoker Smoke less tobacco: Never UsedSubstance and Sexual Activity Alcohol use: No Drug use: No Sexual activity: Not on fileLifestyle Physical activity: Days per week: Not o n file Minutes per session: Not on file Stress: Not on fileRelationships Social connections: Talks on phone: Not on file Gets together: Not on file Attends reli gious service: Not on file Active member of club or organization: Not on file Atten ds meetings of clubs or organizations: Not on file Relationship status: Not on file Intimate partner violence: Fear of current or ex partner: Not on file Emotionally abused: Not on file Physically abused: Not on file Forced sexual activity: Not on fileOther Topics Concern Not on fileSocial History Narrative Not on fileALLERGIES: Patient has no known allergies.Review of SystemsUnable to perform ROS: Patient no nverbalVitals: 02/08/19 1800 02/08/19 1815 02/08/19 1830 02/08/19 1831BP: 109/60 94 /50 120/63Pulse: 87 85 84 83Resp: 30 (!) 31 22 29Temp:SpO2: 97% 98% 98% 100%Weight:H eight: 4:18 PM Pulse Oximetry reading is 94 % on room air, which indicates normaloxyge nation per Darryl Kim MD.Physical ExamConstitutional: He appears well-deve loped and well-nourished. No distress.HENT:Head: Normocephalic and at raumatic.Eyes: Pupils are equal, round, and reactive to light. EOM are normal.Neck: Normal range of motion. Neck supple.Cardiovascular: Normal rate, regu lar rhythm and normal heart sounds. Examreveals no gallop and no friction ru b.No murmur heard.Pulmonary/Chest: Effort normal and breath sounds normal. No resp iratorydistress. He has no wheezes. He has no rales.Abdominal: Soft. Bowel sounds are normal. He exhibits no distension. There is notenderness. There is no rebound and no guarding.Large umbilical hernia. PIC tube in LUQ.Musculoskeletal: Normal range of mot ion. He exhibits no edema.Minimal movements of the arms and legs. 1+ edema in the le gs.Neurological: He is alert.Patient nonverbal, does not follow commands.Skin : Skin is warm and dry. No rash noted.Psychiatric:Unable to assess.Nursi ng note and vitals reviewed.MDMNumber of Diagnoses or Management OptionsPneumonia of right lower lobe due to infectious organism (HCC):Amount and/or Complexity of Data ReviewedClinical lab tests: ordered and reviewedTests in the radiology secti on of CPT : ordered and reviewedDecide to obtain previous medical records or to ob tain history from someoneother than the patient: yesObtain history from someone other than the patient: yesReview and summarize past medical records: yesDiscu ss the patient with other providers: yesIndependent visualization of images, tracings, or specimens: Julio Ellis Stephen, MD, reviewed the patient's past history, allergies and homemedications as documented in the nursing chart.Labs:Rec ent Results (from the past 12 hour(s))EKG, 12 LEAD, INITIAL Collection Time: 02/08/19 4:18 PMResult Value Ref Range Ventricular Rate 97 BPM Atrial Rate 97 BPM P-R Inter seema 148 ms QRS Duration 89 ms Q-T Interval 333 ms QTC Calculation (Bezet) 423 ms Ca lculated P [place] 38 degrees Calculated R [place] 17 degrees Calculated T [place] 28 degrees Diagnosis Sinus rhythmLow voltage, precordial leadsURINALYSIS W/ RFLX MICROSCOPIC Manuel ection Time: 02/08/19 4:59 PMResult Value Ref Range Color YELLOW YEL Appearance CL EAR CLEAR Specific gravity 1.008 1.003 - 1.030 pH (UA) 7.0 4.6 - 8.0 Protein NEGA TIVE NEG mg/dL Glucose NEGATIVE NEG mg/dL Ketone NEGATIVE NEG mg/dL Bilirubin NEG ATIVE NEG Blood NEGATIVE NEG Urobilinogen 0.2 0.2 - 1.0 EU/dL Nitrites NEGATIVE N EG Leukocyte Esterase NEGATIVE NEGLACTIC ACID Collection Time: 02/08/19 5:00 PMR esult Value Ref Range Lactic acid 2.2 (HH) 0.4 - 2.0 MMOL/LMETABOLIC PANEL, COMPREH ENSIVE Collection Time: 02/08/19 5:00 PMResult Value Ref Range Sodium 130 (L) 136 - 145 mmol/L Potassium 4.6 3.5 - 5.1 mmol/L Chloride 91 (L) 98 - 107 mmol/L C O2 39 (H) 21 - 32 mmol/L Anion gap 5 (L) 10 - 20 mmol/L Glucose 115 (H) 74 - 106 mg/dL BUN 10 7 - 18 mg/dL Creatinine 0.49 (L) 0.70 - 1.30 mg/dL GFR est AA >60 >60 ml/min/1 .73m2 GFR est non-AA >60 >60 ml/min/1.73m2 Calcium 9.7 8.5 - 10.1 mg/dL Bilirubin, total 0.3 0.2 - 1.0 mg/dL ALT (SGPT) 9 (L) 13 - 61 U/L AST (SGOT) 19 15 - 37 U/L Alk. phosphatase 85 45 - 117 U/L Protein, total 7.8 6.4 - 8.2 g/dL Albumin 2.4 (L) 3.5 - 4.7 g/dL Globulin 5.4 (H) 1.7 - 4.7 g/dL A-G Ratio 0.4 (L) 0.7 - 2.8CBC WITH AUTOMATE D DIFF Collection Time: 02/08/19 5:00 PMResult Value Ref Range WBC 24.1 (H) 4. 8 - 10.6 K/uL RBC 3.96 (L) 4.70 - 6.00 M/uL HGB 13.2 (L) 14.0 - 18.0 g/dL HCT 40.8 ( L) 42.0 - 52.0 % MCV 103.0 (H) 81.0 - 94.0 FL MCH 33.3 27.0 - 35.0 PG MCHC 32.4 30.7 - 37.3 g/dL RDW 15.9 (H) 11.5 - 14.0 % PLATELET 365 130 - 400 K/uL MPV 9.1 (L) 9.2 - 11.8 FL NEUTROPHILS 89 (H) 48 - 72 % BAND NEUTROPHILS 7 (H) <1 % LYMPHOCYT ES 4 (L) 18 - 40 % RBC COMMENTS 1+ANISOCYTOSIS RBC COMMENTS 1+MACROCYTOS IS RBC COMMENTS SLIGHTHYPOCHROMIA PLATELET ESTIMATE ADEQUATE DF MANUALEKG: Sinus rh ythm at a rate of [address] or T wave changes. Interpreted byDarryl Kim MD Radiology:CXR Results (Last 48 hours) 02/08/19 1729 XR CHEST PORT Final resul t Impression: IMPRESSION: Right lower lobe parenchymal opacities which can bedue to pneumonia. Left basilar atelectatic changes in the juxtadiaphragmatic location. Limi mikel inspiration compromises evaluation. Narrative: XR CHEST PORTClinical data: SepsisPriors: 01/21/2019.Findings: The heart size is unchanged. Limited inspiration with right basilarlung opacities which can be due to pneumonia. Slightly elevated lef themidiaphragm with left basilar atelectasis. No evidence of CHF or largepleural effu elio. Patient's downward pointing chain obscures the right lungapex. There is a n old healed left clavicle fracture.Radiology reviewed by Darryl Kim MD.<EMERGENCY DEPARTMENT CASE SUMMARY>Impression/Differential Diagnosi s: 68 y.o. male presented to the ED withschizophrenia and chronic oxygen dep edemcy from a long-term with shortness ofbreath today. Given Nebulizer w no imp rovement and sent to ED. Patient unable togive history and rectal temp of 99.6F. Will give 2 albuterol nebulizers. Will get complete septic workup includinglabs, EK G, chest x-ray and cultures of the blood and urine. Patient appears onlymildly sob.ED Course:Labs and radiology results reviewed.6:22 PM Patient with a white co unt of 24 and lactate of 2.2. The patient's CXRshows RLL infiltrate. Will give IV an tibiotics and call Dr. Hills (PMD).6:27 PM Case presentation and findings discussed with Dr. Gonzalez (PMD on callfor Dr. Hills) who will admit the patient.A sepsis reas sessment and physical exam was performed prior to admit. Patientwas reassessed pr ior to disposition.Final Impression/Diagnosis:Encounter Diagnoses ICD-10-CM ICD-9-CM1. Pneumonia of right lower lobe due to infectious organism (H CC) J18.1 486Patient condition at time of disposition: stableI have reviewed the [facility] medications:Prior to Admission medicationsMedication Sig Start Date End Date Taking? Authorizing Provideracetaminophen (TYLENOL) 32MG/ML soln solution Take 20.3 mL by mouth every four(4) hours as needed for Pain or Feve r. 01/24/19 Mili Hills DOinfluenza vaccine 2018-, 65 yrs+,,PF, (FLUZONE H IGH-DOSE) syrg injection 0.5mL by IntraMUSCular route PRIOR TO DISCHARGE. 01/24/19 Mili Hills DOcholestyramine-aspartame (QUESTRAN LIG HT) 4 gram packet Take 1 Packet by mouthtwo (2) times a day. 01/24/19 Maryann Hills DOclorazepate (TRANXENE) 3.75 mg tablet 1 Tab by Per G Tube route nightly. MaxDa pierre Amount: 3.75 mg. 12/30/18 Mili Hills DOmultivitamin (ONE A DAY) tabl et 1 Tab by Per G Tube route daily. 12/30/18Mili Hills DOcinacalcet (SE NSIPAR) 30 mg tablet Take 2 Tabs by mouth daily. 12/30/18 Mili Hills DOlamoT RIgine (LAMICTAL) 25 mg tablet 2 Tabs by Per G Tube route two (2) times aday. 12/30/18 Mili Hills DOalbuterol-ipratropium (DUO-NEB) 2.5 mg-0.5 mg/3 ml nebu 3 mL b y Nebulizationroute every six (6) hours. Every 6 hours while awake 12/30/18 Yonatan onMili DOalbuterol-ipratropium (DUO-NEB) 2.5 mg-0.5 mg/3 ml nebu 3 mL by Nebuliza tionroute every four (4) hours as needed for Cough (wheezing, shortness of breath). Mili Hills DObudesonide (PULMICORT) 0.5 mg/2 mL nbsp 2 mL by Neb ulization route two (2) timesa day. 12/30/18 Mili Hills DObacitracin 500 unit/g escobar ointment Apply 1 Packet to affected area two (2) timesa day. Indications: minor s kin infection due to bacteria, facial scabs 12/30/18Mili Hills DOpantoprazole ( PROTONIX) 40 mg granules for oral suspension 40 mg by Per G Tuberoute Daily (before b reakfast). 11/28/18 Mili Hills DOvalproate (DEPAKENE) 250 mg/5 mL syrup Take 750 mg by mouth two (2) times a day.Provider, Darryl Montalvo M D I, Danielle N Maraia, am serving as a scribe to document services personallype rformed by Darryl Kim MD based on my observation and the provider'sstatements to me.I, Darryl Kim MD, attest that the person(s) noted above, acting as myscrib e(s) noted above, has observed my performance of the services and hasdocumented them i n accordance with my direction. I have personally reviewed theabove information and have ordered and reviewed the diagnostic studies, unlessotherwise noted. Name Value Range Interpretation Code Description Data Harriett rce(s) Supporting Document(s ) ID Date Data Source [id number] 02/08/2019 08:04:59 PM EDT [facility] Dose recommendation: cefepime 2 gm q8h f or HAP Name Value Range Interpretation Code Description Data Harriett rce(s) Supporting Document(s ) ID Date Data Source [id number] 02/08/2019 05:35:05 PM EDT [facility] XR CHEST PORTClinical data: SepsisPriors : 01/21/2019.Findings: The heart size is unchanged. Limited inspiration with rig ht basilarlung opacities which can be due to pneumonia. Slightly elevated lefthemidi aphragm with left basilar atelectasis. No evidence of CHF or largepleural effusion . Patient's downward pointing chain obscures the right lungapex. There is an old hea led left clavicle fracture.IMPRESSION: Right lower lobe parenchymal opacities which c an be due topneumonia. Left basilar atelectatic changes in the juxtadiaphrag matic location. Limited inspiration compromises evaluation. Signing date/patria e: 02/08/2019 5:35 PMSigned by: HIGINIO BLACKWELL Name Value Range Interpretation Code Description Data [facility] rce(s) Supporting Document(s ) ID Date Data Source [id number] 02/13/2019 06:21:01 AM EDT [facility] Name Value Range Interpretation Description Data Sup porting Code Source(s) Document(s ) Service comment [facility] Bacteria [facility] - [facility] ID Date Data Source [id number] 02/13/2019 06:20:59 AM EDT [facility] Name Value Range Interpretation Description Data Sup porting Code Source(s) Document(s ) Service comment [facility] Bacteria [facility] - Good [facility] by Culture ID Date Data Source [id number] 02/08/2019 08:19:54 PM EDT [facility] Value Range Interpretation Description Data Sup porting Code Source(s) Document(s ) Troponin 0.00-0.05 [facility] I.cardiac [facility] [Mass/volume Hospital ] in Serum or Plasma (NOTE)The presence of detectable troponi n above the reference rangeindicates myocardial injury which may be due to is chemia,myocarditis, trauma, etc. Clinical correlation is necessary todetermine the significance of this finding. Sequential testing isrecommended to determine if th e typical rise and fall of cTnI isdemonstrated. Note, cardiac troponin-I has a relatively longhalf-life and may be present well after the CK MB has returne d tobaseline. cTnI results in the indeterminate/enriquez zone for myocardial infarction: 0.06 to 0.59 ng/mL cTnI cutoff/range of values consistent with m yocardial infarction: 0.60 to 1.50 ng/mL ID Date Data Source [id number] 02/08/2019 08:19:54 PM EDT [facility] Value Range Interpretation Code Description Data Harriett rce(s) Supporting Document(s ) NOLOINC 1080 PG/ML 0-125 [facility] high [facility] NT-proBNP INTERPRETATION: ACUTE CHF UNLIKELY IF NT-proBNP: <125 PG/ML FOR AGE <75 <450 PG/ML FOR AGE >75 CHF LIKELY IF NT-proBNP: >450 PG/ML FOR AGE <50 >900 PG/ ML FOR AGE 50-75 >1800 PG/ML FOR AGE >75 CHF VERY LIKELY IF NT-proBNP: >10,000 PG/ML (REGARDLESS OF AGE) ID Date Data Source [id number] 02/08/2019 06:26:09 PM EDT [facility] Value Range Interpretation Description Data Sup porting Code Source(s) Document(s ) Leukocytes 24.1 4.8-10.6 Above high normal [facility] - Goo d [#/volume] in K/uL [facility] Blood by Hospital Automated count Erythrocytes 3.96 4.70-6.0 Below low normal [facility] - Go od [#/volume] in M/uL 0 [facility] Blood by Hospital Automated count Hemoglobin 13.2 14.0-18. Below low normal [facility] - Good [Mass/volume] g/dL 0 [facility] Hospital RESULTS CONFIRMED Hematocrit [Volume 40.8 % 42.0-52.0 Below low normal [facility] S - Good Fraction] of Blood by [facility] Automated count Erythrocyte mean 103.0 FL 81.0-94.0 Above high normal [facility] - Good corpuscular volume [facility] ospital [Entitic volume] by Automated count Erythrocyte mean 33.3 PG 27.0-35.[address] [facility] corpuscular hemoglobin [facility] [Entitic mass] by Automated count Erythrocyte mean 32.4 g/dL 30.7-37.3 [facility] corpuscular hemoglobin [facility] concentration [Mass/volume] by Automated count Erythrocyte distribution 15.9 % 11.5-14.0 Above high normal [facility] - [facility] width [Ratio] by [facility] Automated count Platelets [#/volume] in 365 K/uL 130-400 [facility] Blood by Automated count [facility] Platelet mean volume 9.1 FL 9.2-11.8 Below low normal [facility] - Good [Entitic volume] in [facility] Blood by Automated count Segmented 89 % 48-72 Above high normal [facility] neutrophils/100 [facility] H[facility] ital leukocytes in Blood by Manual count Band form 7 % <1 Above high normal [facility] - Good neutrophils/100 [facility] H[facility] ital leukocytes in Blood by Manual count Lymphocytes/100 4 % 18-40 Below low normal [facility] - [facility] leukocytes in Blood by [facility] Manual count 1+ANISOCYTOSIS1+MACROCYTOSISSLIGHTHYPOCH ROMIA Platelet adequacy [Presence] in Blood by [facility] Light microscopy Differential cell count method - Blood [facility] ID Date Data Source [id number] 02/08/2019 05:51:22 PM EDT [facility] Name Value Range Interpretation Description Data Sup porting Code Source(s) Document(s ) Lactate 2.2 0.4-2.0 Above upper panic [facility] - Good [Moles/volu MMOL/L limits [facility]] in Hospital Serum or Plasma CALLED TO AND READ BACK BYMD JULIO Rivera 2078 02/08/19 M WAHABUDDIN ID Date Data Source [id number] 02/08/2019 05:27:06 PM EDT [facility] Name Value Range Interpretation Description Data Sup porting Code Source(s) Document(s ) Sodium 130 136-145 Below low normal [facility] - Good [Moles/volume] mmol/L [facility] in Serum or Hospital Plasma Potassium 4.6 3.5-5.1 [facility] - [facility] [Moles/volume] mmol/L [facility] in Serum or Hospital Plasma Chloride 91 98-107 Below low normal [facility] - Good [Moles/volume] mmol/L [facility] in Serum or Hospital Plasma Carbon 39 21-32 Above high normal [facility] - Good dioxide, total mmol/L [facility] [Moles/volume] Hospital in Serum or Plasma Anion gap in 5 mmol/L 10-20 Below low normal [facility] - Go od Serum or [facility] Plasma Hospital Glucose 115 74-106 Above high normal [facility] - [facility] [Mass/volume] mg/dL [facility] in Serum or Hospital Plasma Urea nitrogen 10 mg/dL 7-18 [facility] [Mass/volume] [facility] in Serum or Hospital Plasma Creatinine 0.49 0.70-1.3 Below low normal [facility] - Good [Mass/volume] mg/dL 0 [facility] in Serum or Hospital Plasma Glomerular >60 [facility] - Good filtration [facility] rate/1.73 sq M Hospital predicted among blacks [Volume Rate/Area] in Serum or Plasma by Creatinine-bas ed formula (MDRD) Glomerular >60 [facility] - Good filtration [facility] rate/1.73 sq M Hospital predicted among non-blacks [Volume Rate/Area] in Serum or Plasma by Creatinine-bas ed formula (MDRD) (NOTE)Estimated GFR is calculated using the Modification of Diet in RenalDisease (MDRD) Study equation, reported for both Americans(GFRAA) and non- Americans (GFRNA), and normalized to 1.7 2m7krtq surface area. The physician must decide which value applies tothe patient . The MDRD study equation should only be used inindividuals age 18 or older. It has no t been validated for thefollowing: women, patients with serious comorbid co nditions,or on certain medications, or persons with extremes of body size,muscl e mass, or nutritional status. Calcium [Mass/volume] in 9.7 mg/dL 8.5-10.1 [facility] - Good Serum or Plasma [facility] ital Bilirubin.total 0.3 mg/dL 0.2-1.0 [facility] - Good [Mass/volume] in Serum or [facility] Plasma Alanine aminotransferase 9 U/L 13-61 Below low normal [facility] - Good [Enzymatic activity/volume] [facility] in Serum or Plasma Aspartate aminotransferase 19 U/L 15-37 [facility] HS - Good [Enzymatic activity/volume] [facility] in Serum or Plasma by With P-5'-P Alkaline phosphatase 85 U/L 45-117 [facility] - G ood [Enzymatic activity/volume] [facility] in Serum or Plasma Protein [Mass/volume] in 7.8 g/dL 6.4-8.2 [facility] - Good Serum or Plasma [facility] ital Albumin [Mass/volume] in 2.4 g/dL 3.5-4.7 Below low normal [facility] - Good Serum or Plasma by [facility] ospital Bromocresol purple (BCP) dye binding method Globulin [Mass/volume] in 5.4 g/dL 1.7-4.7 Above high [facility]SC HS - Good Serum by calculation [facility] Albumin/Globulin [Mass 0.4 0.7-2.8 Below low normal [facility] - Good Ratio] in Serum or Plasma [facility] ID Date Data Source [id number] 02/08/2019 05:36:39 PM EDT [facility] - [facility] Name Value Range Interpretation Description Data Sup porting Code Source(s) Document(s ) Color of Urine YEL [facility] - [facility] Appearance of CLEAR [facility] - Urine [facility] Specific gravity 1.008 1.003-1. [facility] - of Urine by 030 Good Refractometry [facility] pH of Urine by 7.0 4.6-8.0 [facility] - Test strip [facility] Protein NEG [facility] - [Mass/volume] in Good Urine by Test [facility] Glucose NEG [facility] - [Mass/volume] in Good Urine by [facility] test Hospital strip Ketones NEG [facility] - [Presence] in Good Urine by [facility] Automated test [facility] strip Bilirubin.total NEG [facility] - [Presence] in Good Urine [facility] Hemoglobin NEG [facility] - [Presence] in Good Urine by Test [facility] Hospital Urobilinogen 0.2 0.2-1.0 [facility] - [Presence] in EU/dL Good Urine by [facility] test Hospital strip Nitrite NEG [facility] - [Presence] in Good Urine by [facility] test Hospital strip Leukocyte NEG [facility] - esterase Good [Presence] in Taoist Urine by Hospital Automated test strip ID Date Data Source [id number] 02/08/2019 04:23:44 PM EDT [facility] Patient ASHLEY from [place] [facility], with complains of shortness ofbreath. Patient is oxygen dependant. Name Value Range Interpretation Code Description Data Harriett rce(s) Supporting Document(s ) ID Date Data Source [id number] 01/24/2019 05:42:36 PM EDT [facility] Patient for d/c to rehab today. discharg e papers completed. Patient is dischargewith heplock to continue IV ABt at rehab.Siri ent was picked up by the ambulance in stable condition. Name Value Range Interpretation Code Description Data Harriett rce(s) Supporting Document(s ) ID Date Data Source [id number] 01/24/2019 04:35:03 PM EDT [facility] Spoke with Dr hills - plan return to [facility] today. [place] [facility] to p/uat 5:30. Call to [facility] - message left at the nursing office about patientReturn with request to call back Madelyn again to [facility] - RN component assembler supervisor Robert advised of plan for patientreturn today. She will call DON and call back to confirm bed. Advised Stiven patient was set -up to return yesterday but delayed discharge untiltoday.client hr manager inez led Allan at [place] and patient is accepted backtoday. Name Value Range Interpretation Code Description Data Harriett rce(s) Supporting Document(s ) ID Date Data Source [id number] 01/24/2019 04:21:45 PM EDT [facility] Physician Discharge SummaryPatient ID:Lina [id number] date: 01/10/2019Discharge date:Discharge Diagnoses: Principal Diagnosis <principal problem not specified> Active Problems: Acute respiratory failure with hypoxia ( HCC) (01/10/2019) Pneumonia involving right lung (01/10/2019) Hyponatremia ( 9)Pneumonia RLL and LLLRUL AtelectasisConsults: Pulmonary/Intensive care, ID, GI and NephrologyHospital Course: Patient is a 68 YO male who is a residen t at [facility]. He wastransferred to to the ED for Hypoxia, O2 SAT of 87 % on 4 lpm, re sp rate 30 andaudible wheezes. The long-term transfer record reporting that the residentremoves his nasal canula at times.CXR showed haziness at the RLL and he had a sodium level of 126.The patient was admitted with encounter diagnosis of Acute respir atory failurewith hypercapnia and hypxia, pneumonia, RLL and LLL likely aspiration , RULatelectasis, dysphagia s/p surgical placed peg on 11/17/18, lung nodule rightl atera wall of trachea( not visualized on the follow up ct scan with contrast),mentall y challenged, seizure, hyponatremia and hyperparathyroid. He was treatedwith iv antibiotic, O2 NC, nightly and PRN bipap, nebulizers and iv fluids.Ct chest dated 01/10/19 showing 1.8 cm nodule along the right lateral wall of thetrachea.Follow up CT WC on 01/15 The tracheal nodule was no longer visualized. Intervalimprovement of the R LL infiltrate. Stable small left pleural effusion withunderlying atelectatic charles ges similar to prior stucy. and small right pleuraleffusion. No new lung findings se en.Pt was improving; he would have a brief episode of respiratory distress, he wasp laced on BiPAP. Cxr dated 01/17 showed no acute infiltrate. Antibiotics wereDC'd. Discharge planning was anticipated. Received telephone call from pt'roz in law, who is currently out of the [place], requesting that pt be evaluated for con version of the GT to a Jtube in orderto possible reduce the risk of recurrent as piration and frequent hospitalreadmissions.He had requested this on the previous admis elio, however as pt respiratorystatus was compromised and the pt was tolerating jeff aspen tube feedings while int hospital; It was decided to give the bolus feedings a trial in the snfsetting.However, the patient has been readmitted for aspiration pneum onia, and [facility] is again requesting the conversion.During this time, pt spiked a fever, and was started on iv zosyn and vancomycin.The cultures have been neg, s o far.There has been unsuccessful attempts at contacting any close family members toob tain a consent.GI stating given, the delay, would consider discharging pt and can do theprocedure as an outpt. At the time of discharge the patient is afebrile, stabl erespiratory status at this time, sodium level is normal, and the patient is tolb olus tube feed.Recommending using O2NC daytime and Bipap nightly and PRN.Radiol ogy studies performed during this admission:CT chest WOC, CT chest WC,Veno us duplex b/l lower extremitiesDisposition: long term care administrator care facilityPatient Instructi ons:Current Discharge Medication ListSTART taking these medications Detailsacetamin ophen (TYLENOL) 32MG/ML soln solution Take 20.3 mL by mouth every four(4) hours as needed for Pain or Fever.Qty: 250 mL, Refills: 0acetylcysteine (MUCOMYST) 100 mg/mL (10 %) nebulizer solution Take 4 mL byinhalation two (2) times a day for 10 days.Qty: 80 mL, Refills: 0heparin sodium,porcine (HEPARIN, PORCINE,) 5,000 unit/mL injection 1 mL bySubCUTAneous route every twelve (12) hours every twelve (12 ) hours for 7 days.Qty: 14 mL, Refills: 0influenza vaccine , 65 yrs+,,PF, (FLUZONE HIGH-DOSE) syrg injection 0.5mL by IntraMUSCular route PRIOR TO DISCHARGE.Q ty: 1 Syringe, Refills: 0piperacillin-tazobactam 3.375 gram 3.37 5 g IVPB 3.375 g by IntraVENous routeevery eight (8) hours for 4 days.Qty: 12 Dose, Refills: 0CONTINUE these medications which have CHANGED Detailscholestyramine-aspar tame (QUESTRAN LIGHT) 4 gram packet Take 1 Packet by mouthtwo (2) times a day.Qty: 60 Packet, Refills: 1CONTINUE these medications which have NOT CHANGED Detai lsclorazepate (TRANXENE) 3.75 mg tablet 1 Tab by Per G Tube route nightly. MaxDaily Am ount: 3.75 mg.Qty: 30 Tab, Refills: 5 Associated Diagnoses: Generalized anxiet y disordermultivitamin (ONE A DAY) tablet 1 Tab by Per G Tube route daily.Qty: 30 Ta b, Refills: 5cinacalcet (SENSIPAR) 30 mg tablet Take 2 Tabs by mouth daily.Qty: 6 0 Tab, Refills: 5lamoTRIgine (LAMICTAL) 25 mg tablet 2 Tabs by Per G Tube route two (2 ) times aday.Qty: 60 Tab, Refills: 5!! albuterol-ipratropium (DUO-NEB) 2.5 mg-0 .5 mg/3 ml nebu 3 mL by Nebulizationroute every six (6) hours. Every 6 hours while awakeQty: 30 Nebule, Refills: 0!! albuterol-ipratropium (DUO-NEB) 2.5 mg-0 .5 mg/3 ml nebu 3 mL by Nebulizationroute every four (4) hours as needed for Cough (wheezing, shortness of breath).Qty: 30 Nebule, Refills: 0budesonide (PULMICORT) 0.5 mg/2 mL nbsp 2 mL by Nebulization route two (2) timesa day.Qty: 60 Each, Refills : 0bacitracin 500 unit/gram ointment Apply 1 Packet to affected area two (2) timesa d ay. Indications: minor skin infection due to bacteria, facial scabsQty: 20 Packet, Re fills: 0pantoprazole (PROTONIX) 40 mg granules for oral suspension 40 mg by Pe r G Tuberoute Daily (before breakfast).Qty: 30 Each, Refills: 2valproate (DEPAKENE) 250 mg/5 mL syrup Take 750 mg by mouth two (2) times a day. !! - Potential duplicat e medications found. Please discuss with provider.STOP taking these medications v alACYclovir (VALTREX) 1 gram tablet Comments:Reason for Stopping: acetaminop hen (TYLENOL) 325 mg suppository Comments:Reason for Stopping:Activity: P T/OT Eval and TreatDiet: bolus tube feedFollow-up with Dr Hills in 2 days. Signed:Christofer Gonzalez 20183:30 PM Name Value Range Interpretation Code Description Data Harriett rce(s) Supporting Document(s ) ID Date Data Source [id number] 01/24/2019 04:21:22 PM EDT [facility] - [facility] ID Progress Note01/24/2019Subjective:Pat ient with mental retardation,recurrent aspiration pneumonia.Fever trending down Non verbal,unable to provide history.Objective:Vitals:Patient Vitals for the past 24 hrs: BP Temp Pulse Resp BuI65401/24/19 1557 (!) 105/93 97 F (36.1 C) 91 20 93 %01/24/19 0824 112/67 97.2 F (36.2 C) 87 20 93 %01/24/19 0806 - - - - 92 %01/24/19 0447 107/56 97.1 F (36.2 C) 94 20 90 %01/24/19 0250 - - - - 99 %01/13 05/03 1954 117/67 97.6 F (36.4 C) 89 19 94 %Tmax: Temp (24hrs), Av.2 F (36.2 C), Min:97 F (36.1 C), Max:97.6 F(36.4 C)Physical Exam:General: Awake non verb al,no distress.Neck: Supple, symmetrical, trachea midline, no adenopathLungs: De crease breath sounds at bases.Heart: Regular rate and rhythm, S1, S2 normalAbdomen: Soft, non-tender. Bowel sounds normal. No masses, No organomegaly.+feeding tubeBa ck: No CVA tenderness.Extremities: Chronic lymphedema.Pulses: 2+ and symmetric all extremities.Skin: Skin color, texture, turgor normal. No rashes or lesionsCurrent Faci lity-Administered MedicationsMedication Dose Route Frequency ALPRAZolam (XANAX) tabl et 0.25 mg 0.25 mg Oral QHS vancomycin (VANCOCIN) 1,000 mg in 0.9% sodium chlor wade 250 mL IVPB 1,000 mgIntraVENous Q12H piperacillin-tazobactam (ZOSYN) 3.375 g in 0.9% sodium chloride (MBP/ADV) 100mL MBP 3.375 g IntraVENous Q8H phosphorus (K P HOS NEUTRAL) 250 mg tablet 1 Tab 1 Tab Oral BID acetylcysteine (MUCOMYST) 100 mg/mL (10 %) nebulizer solution 400 mg 4 mLNebulization BID RT multivit-folic ac id-herbal 275 (WELLESSE PLUS) oral liquid 30 mL 30 mL Per GTube DAILY budesonide (P ULMICORT) 500 mcg/2 ml nebulizer suspension 500 mcg NebulizationBID RT sodium chlor wade (NS) flush 5-10 mL 5-10 mL IntraVENous PRN cholestyramine-aspartame (QUESTRAN LIGHT) packet 4 g 4 g Oral TID WITH MEALS cinacalcet (SENSIPAR) tablet 60 mg 60 m g Oral DAILY lamoTRIgine (LaMICtal) tablet 50 mg 50 mg Per G Tube BID pantoprazol e (PROTONIX) granules for oral suspension 40 mg 40 mg Per G TubeACB valproic acid ( as sodium salt) (DEPAKENE) 250 mg/5 mL (5 mL) oral solution 750mg 750 mg Oral BID ac etaminophen (TYLENOL) solution 650 mg 650 mg Oral Q4H PRN heparin (porcine) injectio n 5,000 Units 5,000 Units SubCUTAneous Q12H albuterol-ipratropium (DUO-NEB) 2.5 MG-0 .5 MG/3 ML 3 mL Nebulization Q6H RTLabs:Recent Labs 5 22733 447WBC 8.3 -- --HGB 10.0* -- --PLT 551* -- --BUN 24* 24* 19*C SHILO 0.40* 0.44* 0.40*Cultures:Lab ResultsComponent Value Date/Time Culture result: NO GROWTH 3 DAYS 01/21/2019 11:30 PM Culture result: NO GROWTH 2 DAYS 019 11:15 PM Culture result: NO GROWTH 3 DAYS 01/21/2019 11:00 PMRadiology:No results found.Assessment: Aspiration pneumonia BL small pleural effusion Acute hypoxic re spiratory failure. Dysphagia Pleural effusion. . COPD fever Plan:1. Contin ue Iv zosyn for 4 days.Cassy Beauchamp 20184:19 PM Name Value Range Interpretation Code Description Data Harriett rce(s) Supporting Document(s ) ID Date Data Source [id number] 01/24/2019 02:02:20 PM EDT [facility] PULMONARY/ CCM- Consult NotePatient: Ivelisse Carlin Sex: male DOA: 01/10/2019Date of : 1 Age: 68 y.o. LOS: LOS: 14 daysHPI: step down.Evelio Carlin is a 68 y.o. 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 Authoriz ing ProvidervalACYclovir (VALTREX) 1 gram tablet Take 1,000 mg by mouth two (2) ti mes a day.Yes Provider, Historicalacetaminophen (TYLENOL) 325 mg suppository Insert 650 mg into rectum every four(4) hours as needed for Fever. Yes Provider, Historicalclorazepate (TRANXENE) 3.75 mg tablet 1 Tab by Per G Tube route nightly. MaxDaily Amount: 3.75 mg. 12/30/18 Mili Hills DOmultivitamin (ONE A D AY) tablet 1 Tab by Per G Tube route daily. 12/30/18Mili Hills DOcinacalcet (SE NSIPAR) 30 mg tablet Take 2 Tabs by mouth daily. 12/30/18 Mili Hlils DOlamoT RIgine (LAMICTAL) 25 mg tablet 2 Tabs by Per G Tube route two (2) times aday. 12/30/18 Mili Hills DOalbuterol-ipratropium (DUO-NEB) 2.5 mg-0.5 mg/3 ml nebu 3 mL b y Nebulizationroute every six (6) hours. Every 6 hours while awake 12/30/18 Yonatan onMiliDOalbuterol-ipratropium (DUO-NEB) 2.5 mg-0.5 mg/3 ml nebu 3 mL by Nebuliza tionroute every four (4) hours as needed for Cough (wheezing, shortness of breath). Mili Hills DObudesonide (PULMICORT) 0.5 mg/2 mL nbsp 2 mL by Neb ulization route two (2) timesa day. 12/30/18 Mili Hills DObacitracin 500 unit/g escobar ointment Apply 1 Packet to affected area two (2) timesa day. Indications: minor s kin infection due to bacteria, facial scabs 12/30/18Mili Hills DOcholestyramine -aspartame (QUESTRAN LIGHT) 4 gram packet Take 1 Packet by mouththree (3) times da pierre (with meals). 12/30/18 Mili Hills DOpantoprazole (PROTONIX) 40 mg granules for oral suspension 40 mg by Per G Tuberoute Daily (before breakfast). 11/28/18 Yonatan onMili DOvalproate (DEPAKENE) 250 mg/5 mL syrup Take 750 mg by mouth two (2) ti mes a day.Provider, HistoricalNo Known AllergiesNo past surgical history on yoshi e.No family history on file.Social HistorySocioeconomic History Marital st atus: SINGLE Spouse name: Not on file Number of children: Not on file Years o f education: Not on file Highest education level: Not on fileTobacco Use Smoking s tatus: Never Smoker Smokeless tobacco: Never UsedSubstance and Sexual Activity Alcoh ol use: No Drug use: NoReview of SystemsPertinent items are noted in the History of Present Illness.Physical Exam:Current medications:Current Facilit y-Administered Medications: ALPRAZolam (XANAX) tablet 0.25 mg, 0.25 mg, Oral, Q HS, Mili Hills DO,0.25 mg at 01/23/19 2139 vancomycin (VANCOCIN) 1,000 mg in 0.9% sodium chloride 250 mL IVPB, 1,000 mg,IntraVENous, Q12H, Monica Gomez MD , Last Rate: 125 mL/hr at 01/24/19 1303,1,000 mg at 01/24/19 1303 piperacillin-tazob actam (ZOSYN) 3.375 g in 0.9% sodium chloride (MBP/ADV) 100mL MBP, 3.375 g, IntraVENou s, Q8H, Monica Gomez MD, Last Rate: 25 mL/hr at1 0830, 3.375 g at 0830 phosphorus (K PHOS NEUTRAL) 250 mg tablet 1 Tab, 1 Tab, Oral, BID, Eloisa Hills DO, 1 Tab at 01/24/19 0830 acetylcysteine (MUCOMYST) 100 mg/mL (10 %) nebulizer solution 400 mg, 4 mL,Nebulization, BID RT, Krystian Monae MD, Stopped at 01/24/19 0800 multivit-folic acid-herbal 275 (WELLESSE PLUS) oral liq uid 30 mL, 30 mL, PerG Tube, DAILY, Mili Hills DO, 30 mL at 01/24/19 0840 bu desonide (PULMICORT) 500 mcg/2 ml nebulizer suspension, 500 mcg,Nebulization, BID RT , Mili Hills DO, 500 mcg at 01/24/19 0802 sodium chloride (NS) flush 5-10 m L, 5-10 mL, IntraVENous, PRN, Wes Romero MD, 10 mL at 01/19/19 1737 cholesty ramine-aspartame (QUESTRAN LIGHT) packet 4 g, 4 g, Oral, TID WITHMEALSReinier Shirle y, DO, 4 g at 01/24/19 1302 cinacalcet (SENSIPAR) tablet 60 mg, 60 mg, Oral, DA PIERREReinier Shirley, DO,60 mg at 01/24/19 0830 lamoTRIgine (LaMICtal) tablet 50 mg, 50 mg, Per G Tube, BID, Mili Hills DO, 50 mg at 01/24/19 0830 hay toprazole (PROTONIX) granules for oral suspension 40 mg, 40 mg, Per GTube, ACB, Mili Hills DO, 40 mg at 01/24/19 0830 valproic acid (as sodium salt) (DEPAKEN E) 250 mg/5 mL (5 mL) oral [id number] mg, 750 mg, Oral, BID, Mili Hills DO, 750 mg at 01/24/19 0830 acetaminophen (TYLENOL) solution 650 mg, 650 mg, Oral, Q4H PRN, Mili Hills DO, 650 mg at 01/24/19 0830 heparin (porcine) inject ion 5,000 Units, 5,000 Units, SubCUTAneous, Q12H,Mili Hills DO, 5,000 Units at 01/24/19 1302 influenza vaccine 2019- (65 yrs+)(PF) (FLUZONE HIGH-DOSE) inject ion 0.5 mL,0.5 mL, IntraMUSCular, PRIOR TO DISCHARGE, Mili Hills DO albuter ol-ipratropium (DUO-NEB) 2.5 MG-0.5 MG/3 ML, 3 mL, Nebulization, Q6HRT, Krystian Monae MD, 3 mL at 01/24/19 0802DataVisit VitalsBP 112/67 (BP 1 Location: Right arm, BP Pat ient Position: At rest)Pulse 87Temp 97.2 F (36.2 C)Resp 20Ht 5' 2" (1.575 m)Wt 56. 9 kg (125 lb 8 oz)SpO2 93%BMI 22.95 kg/m Intake and Output:Date 01/23/19699 - 1 59 01/24/19699 - 01/25/19 0659Shift 2715-5312 8282-9276 24 Hour To krystian [id number] 2870-4977 24 Hour TotalINTAKEI.V.(mL/kg/hr) 800(1.2) 800( 0.6) Volume (vancomycin (VANCOCIN) 1,000 mg in 0.9% sodium chloride 250 mL IVPB)500 500 Volume (piperacillin-tazobactam (ZOSYN) 3.375 g in 0.9% sodium chloride(MBP/ADV) 100 mL MBP) 300 300NG/GT 680 680 Water Flush Volume (mL) (PEG/Gastrostomy Tube) 200 200 Intake (ml) (PEG/Gastrostomy Tube) 480 480Shift Total(mL/kg) 800(14.1) 680 (11.9) 1480(26)OUTPUTUrine(mL/kg/hr) 450(0.7) 200(0.3) 650(0.5) Urine Output (mL) (Co ndom Catheter 01/16/19) 450 200 650Shift Total(mL/kg) 450(7.9) 200(3.5) 650(11.4) NET 350 480 830Weight (kg) 56.9 56.9 56.9 56.9 56.9 56.9Pulse OX:SpO2 Readings fro m Last 6 Encounters:01/24/19 93%12/30/18 96%11/27/18 91%09/26/15 96%@LASTSAO2(6)@ PHYSICAL EXAM:General: Lethargic,responding.Head: Normocephal ic, without obvious abnormality, atraumatic.Eyes: Conjunctivae clear, a nicteric sclerae. Pupils are equalNose: Nares normal. No drainage or sinus tende rness.Throat: Lips, mucosa, and tongue normal. No ThrushNeck: Supple, symmetr ical, no adenopathy, thyroid: non tender no carotid bruit and no JVD.Back: Symmet rodger, No CVA tenderness.Lungs: Scattered rhonchi,Chest wall: No tenderness or de formity. No Accessory muscle use.Heart: Regular rate and rhythm, no murmur, rub or gallop.Abdomen: Soft, non-tender. Not distended. Bowel sounds normal. No mass esExtremities: Extremities normal, atraumatic, No cyanosis. No edema. No c lubbingSkin: Texture, turgor normal. No rashes or lesions. Not JaundicedLymph n odes: Cervical, supraclavicular normal.Psych: Good insight. Not depressed. Not anxi ous or agitated.Neurologic: EOMs intact. No facial asymmetry. No aphasia or slurred speech.Most recent labs:Recent Labs 10WBC 8.3HGB 10.0*HCT 31.3*PLT 551*Recent Labs 01/23/1905NA 141 140 141K 3.7 4.1 4.3C L 101 98 101CO2 35* 37* 39*GLU 82 72* 77BUN 24* 24* 19*CREA 0.40* 0.44* 0.40*CA 9.7 10.0 9.7MG 1.9 1.9 2.0PHOS 3.2 3.3 2.9ALB 1.7* 1.6* 1.5*No results for input(s): P H, PCO2, PO2, HCO3, FIO2 in the last 72 hours.ABG:No results for input(s): PH, P CO2, PO2, HCO3, FIO2 in the last 72 hours.Cultures:No results found for: [employer] OPERATOR SLab ResultsComponent Value Date/Time Culture result: NO GROWTH 3 DAYS 01/21/2019 11:3 0 PM Culture result: NO GROWTH 2 DAYS 01/21/2019 11:15 PM Culture result: NO G ROWTH 3 DAYS 01/21/2019 11:00 PM Culture result: NO GROWTH 1 DAY 01/10/2019 08:58 AM Culture result: NO GROWTH 5 DAYS 01/10/2019 07:55 AM Culture result: NO G ROWTH 5 DAYS 01/10/2019 07:40 AM Culture result: NO GROWTH 5 DAYS 12/29/2018 11:2 3 AM Culture result: NO GROWTH 5 DAYS 12/29/2018 11:00 AM Culture result: 10,0 00 to 50,000 COLONIES/mL KLEBSIELLA PNEUMONIAE (A)12/29/2018 11:00 AM Cultur e result: 50,000-100,000 COLONIES/mL PSEUDOMONAS AERUGINOSA (A)12/29/2018 11: 00 AM Culture result: (A) 12/29/2018 11:00 AM 10,000 to 50,000 COLONIES/mL STAPHYLOCO CCUS EPIDERMIDIS Culture result: NO GROWTH 2 DAYS 12/24/2018 09:45 AM Culture result: NO GROWTH 5 DAYS 12/23/2018 12:00 PM Culture result: NO GROWTH 5 DAYS 12/23/2018 11:4 0 AM Culture result: NO GROWTH 4 DAYS 12/19/2018 12:30 PM Culture result: NO G ROWTH 4 DAYS 12/19/2018 12:30 PM Culture result: NO GROWTH 1 DAY 12/12/2018 08:04 PM Culture result: NO GROWTH 5 DAYS 12/12/2018 07:40 PM Culture result: NO G ROWTH 5 DAYS 12/12/2018 07:40 PM Culture result: NO GROWTH 2 DAYS 11/20/2018 09:0 0 AM Culture result: NO GROWTH 5 DAYS 11/07/2018 08:10 PM Culture result: NO G ROWTH 5 DAYS 11/07/2018 08:00 PMImages:Cta Chest W Or W Wo ContResult Date: 11/09/19 19Examination: CTA Chest ? PE angiography History: Hypoxia; rule out pneumoniavers us pulmonary embolism Priors: None Technique: Low-dose, multiplanar,helica l CTA chest was performed with bolus IV injection from lung apices tobases. 3D- reformatted images were obtained and reviewed on a dedicated viewingworkstation and di rectly supervised. Contrast: A total of 71 mL of Isovue-370was administered intravenou sly for this procedure. Findings: No evidence ofpulmonary embolism is seen. T here is decreased size of the right hemithorax fromchronic scarring and retr action with mediastinal shift left to right.Additional area of consolidation i s seen in the right lower lobe and suggestssuperimposed pneumonia with subs egmental atelectasis. Subsegmental atelectasisis also noted in the left jorge g base, with pleural parenchymal scarring. Lowlung volumes are seen. No pneumothora x seen. Aorta normal in caliber withoutaneurysm or dissection. Mediastin um no adenopathy. Mediastinal shift is seen inthe left and right as a result of chr onic changes in the right hemithorax.Heart shows no chamber enlargement or pericard ial effusion. No acute fracturesseen in the bony thorax, sternum, manubrium and rib cage. Multiple compressiondeformities are seen in the mid and lower thoracic spine , with superimposedspondyloarthropathy. Cannot exclude acute fracture.Impression : No evidence of pulmonary embolism Right lower lobe pneumoniasuggested. Incidenta l scarring and retraction in the right hemithorax fromremote/chronic inflammato ry disease and/or trauma. Bibasilar subsegmentalatelectasis. Report Electron ically Signed By: Pawel Luna11/08/2018 12:40 AMXr Chest PortResult D ate: 11/07/2018XR CHEST PORT CLINICAL INDICATION PROVIDED:. "sob." COMPARISON: . 09/26/2015.FINDINGS:. The pericardial/cardiac silhouette is enlarg ed in the transversedimension. There is no pulmonary vascular congestion or interst itial edema.Linear density in the left lung base and faint densities in the right mi d tolower lung likely represent atelectasis. There is no lobar consolidation oreffusi on. There is no pneumothorax.IMPRESSION:. Bilateral lower lung atelectasis. No donna dence of consolidation oreffusion.Assessment/PlanActive Problem s: Acute respiratory failure with hypoxia (HCC) (01/10/2019) Pneumonia involving r ight lung (01/10/2019) Hyponatremia (01/10/2019) Acute resp failure combined, pneumonia acute copd exacerbation pe ruled out.PLAN,Monitoring,bipap prn for resp d istressIvabx as per id,Steroid nebbipap prn and at night.NebGi follow up noted.D/w n ursing staff.d/w dr hills.Stella Hamilton MDOctober 2018The billing code submi tted in association with this evaluation also includes thetime to review patient's yuan or records, communicate with the physician team,obtain corroborating data, and disc uss the risk and benefits of the proposedmanagement plan with the patient and their family >30 minutes. Name Value Range Interpretation Code Description Data Harriett rce(s) Supporting Document(s ) ID Date Data Source [id number] 01/24/2019 01:48:23 PM EDT [facility] Progress NotePatient: Evelio Carlin Sex: male DOA: 01/10/2019Date of : 1950 Age: 68 y.o. :[id number]:Reyes Carlin is 68 y.o. male who is norverbal; appearing comfortable.Wearing O2 via NC.Pt had rectal temperature of 102.3 overnight, ID was notified, sepsis work upwas ordered. Pt was started on iv zosyn and vancomycin.Pt was seen and examined at [facility] on 01/23/19. He is appearing comfortable.Pt was for discharge, patricia uribe, the patient's brother in law, Dr Ovalle, who iscurrently out of the country, call ed today and requested that pt be evaluatedfor conversion of the GT to a J tube in order to possible reduce the risk ofrecurrent aspiration and frequent hosp ital readmissions.He had requested this on the previous admission, however as pt re spiratorystatus was compromised and as the pt was tolerating bolus feedings while in [facility]; It was decided to give the bolus feedings a trial in the snf setting.Puma roland, the patient has been readmitted for aspiration pneumonia, and Flakita is a gain requesting the conversion.Placed on BIPAP for Acute respiratory distress on Saturday. His respiratory statusis now improved. Pt presented from [facility] to the ED, with medical history of Dysphagia ,s/p surgical placement of peg on 11/17/18, se arron intellectual disability,Chronic respiratory failure, large Hiatal Hernia , hyperparathyroid unspecified,personal h/o pulmonary embolus, anxiety disorder, kyp hosis and schizophrenia. Ptis nonverbal at baseline and is unable to provide a hist ory.Per long-term transfer records, at 6 AM, patient was found Hypoxic, with O2 SAT of 87 % on O2 NC 4 LPM,heart lpsu655 BPM, blood pressure of 105/73,respiratoryrat e of 30 and audible wheeze. Nebulizer treatment was given. Hewas placed on a NRM with improved O2 SAT to 95 % , his respiratory rate was 30and he was afebr ile. The long-term transfer record reporting that theresident removes nasal canula at times. In the ED pt appearing lethargic and having mild respiratory di stress.CXR showing haziness at the right lung base due to small effusion withatelectas is/infiltrate. No confluent left lung process is seen. Sodium anpyp011.ABG wi th pH 7.46/53/66/38 O2 SAT 95 % on NC 4 LPM.The patient was admitted with encoun ter diagnosis of Acute Respiratory Failurewith hypercapnia and hypoxia, Pne umonia RLL likely Aspiration and Atelectasis.Also, diag of Dysphagia s/p surgical placed peg, COPD, mentally challenged,seizure and hyperparathyroid are pertinent to this visit.The RN reporting that patient is tolerating his bolus tub e feedings. CT scan chest wo contrast dated 01/10/19 showed 1.8 cm nodule along the r ightlateral wall of the trachea at the level of the thoracic inlet not obs on theprio r study and can be due to a mucous plug. Follow up CT chest WC dated 01/15 with fi nding of tracheal nodule no longervisualized.Small left pleural effu ion with underlying passive atelectatic changes similarto prior study.Stable sma ll right pleural effusion. Interval improvement in the rt lower lobelung inf iltrate. No new lung findings seen. CXR dated 01/17/19 limited study, no acute i nfiltrate GI noted, consent still not available for procedure. Given, the marquez mattaconsider discharging pt and can do the procedure as an outpt. Pt close fam pierre members are apparently out of the country. 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) Pneumoni a Psychiatric disorder Pulmonary emboli (HCC) Schizophrenia (HCC)Review of Syst ems: [x] Unable to obtain ROS due to patient factors.Objective:Vital Signs: Patient V itals for the past 24 hrs: BP Temp Pulse Resp BdS47901/23/19 1512 106/59 97.9 F (3 6.6 C) 90 18 100 %01/23/19 1124 114/67 97.9 F (36.6 C) 81 16 97 %01/23/19 0821 99/5 5 97.4 F (36.3 C) 90 16 100 %01/23/19 0425 116/61 97.3 F (36.3 C) 82 16 99 %01/23 0239 - - - - 99 %01/22/19 1949 122/73 97.2 F (36.2 C) 96 18 94 % PHYSICAL E XAM:General: Alert, cooperative, no distress, appears stated age.Head: Nor mocephalic, without obvious abnormality, atraumatic.Eyes: Conjunctivae clear, a nicteric sclerae. Pupils are equalThroat: Lips, mucosa, and tongue normal. No Thr ushNeck: Supple, symmetrical, no adenopathy, no carotid bruit and no JVD .Lungs: Clear to auscultation bilaterally. No Wheezing or Rhonchi. No rales.Chest w all: No Accessory muscle use.Heart: Regular rate and rhythm, no murmur, or rub.Abdomen: Positive peg intace, soft, non-tender. Not distended. Bowel sounds normal.Extremities: Extremities normal, atraumatic, No cyanosis. Positive LUE e yana.No clubbingSkin: Warm and dry. No rashes or lesions. Not JaundicedLymph n odes: Cervical, supraclavicular normal.Psych: Not anxious or agitated.Neurologic: EO Ms intact. No facial asymmetry. Non verbal. Generalized weakness,non ambulatory, Fuentes rt and AwakeIntake and Output:Current Shift: No intake/output data recorded.Last thre e shifts: 01/22 1901 - 01/24 0700In: 1640 [I.V.:800]Out: 1500 [Urine:1500]Lab/Data Reviewed:Recent Days:Recent Results (from the past 24 hour(s))RENAL FUNCTION PANEL Collection Time: 01/23/19 5:20 AMResult Value Ref Range Sodium 140 136 - 145 mm ol/L Potassium 4.1 3.5 - 5.1 mmol/L Chloride 98 98 - 107 mmol/L CO2 37 (H) 21 - 32 mmol/L Anion gap 9 (L) 10 - 20 mmol/L Glucose 72 (L) 74 - 106 mg/dL B UN 24 (H) 7 - 18 mg/dL Creatinine 0.44 (L) 0.70 - 1.30 mg/dL GFR est AA >60 >60 ml /min/1.73m2 GFR est non-AA >60 >60 ml/min/1.73m2 Calcium 10.0 8.5 - 10.1 m g/dL Phosphorus 3.3 2.5 - 4.9 mg/dL Albumin 1.6 (L) 3.5 - 4.7 g/dLMAGNESIUM Collect ion Time: 01/23/19 5:20 AMResult Value Ref Range Magnesium 1.9 1.6 - 2.6 mg/dLVANC OMYCIN, TROUGH Collection Time: 01/23/19 11:05 AMResult Value Ref Range Vancomyc in,trough 8.8 (L) 10 - 20 ug/mL CULTURE, URINE [[id number]] (Order [id number])Microbi ologyDate: 01/21/2019 Department: [facility] Released By: Geovanna Vazquez RN(au to-released) Authorizing: Monica Gomez MDSpecimen Information: Cath Urine Axson nent Value Flag Ref Range Units StatusSpecial Requests: FinalNO SPECIAL REQUESTSC ulture result: NO GROWTH 2 DAYS FinalLab and CollectionCULTURE, URINE (Order: [id number]) - 01/21/2019CULTURE, BLOOD [[id number]] (Order [id number])MicrobiologyDate: 2018 Department: [facility]urg Released By: Geovanna Vazquez RN(auto-released) Autho rizing: Monica Gomez MDSpecimen Information: Blood Component Value Flag Ref Range Units StatusSpecial Requests: PreliminaryNO SPECIAL REQUESTSCulture re sult: NO GROWTH 3 DAYS PreliminaryCULTURE, BLOOD [[id number]] (Ord er [id number])MicrobiologyDate: 01/21/2019 Department: [facility]urg Released By: Geovanna Vazquez RN(auto-released) Authorizing: Monica Gomez MDSpecimen Information: Blood Component Value Flag Ref Range Units StatusSpecial Requests: PreliminaryNO SPECIAL REQUESTSCulture result: NO GROWTH 3 DAYSNo results for i nput(s): PH, PCO2, PO2, HCO3, FIO2 in the last [address] Chest Wo ContResult Pan e: 01/10/2019CT CHEST WO CONT Clinical data: evaluation of pneumonia rt lung. Priors: 12/18/2018 Technique: CT scan of the chest was performed from the thoracic inletto belo w the diaphragm without administration of intravenous contrast. Theacquisition da ta was reviewed in the axial, sagittal and coronal plane.Utilizing silver holloware assembler alg orithm the examination was performed to optimizeimaging quality by utilizing the lowest possible radiation dose. Findings: Thereis no evidence of pathological lymp hadenopathy within the mediastinum, bilateralhilar and bilateral axillary lo cation. There is a 1.8 cm nodule along the rightwall of the trachea at the level of the thoracic inlet (best seen on image 13ofseries 2) not seen on the prior stud y. This may be due to a mucous plug. Noadditional endotracheal or endobronchi al lesion is noted.Normal heart size.Coronary artery calcifications noted. Atheroscle rotic thoracic aorta withoutaneurysmal dilatation. Evaluation lung windows demo nstrates patchy right lowerlobe lung infiltrate. There is associated small ri ght pleural effusion similarto prior. There is also small left pleural effusion with underlying passiveatelectasis slightly decreased from the prior study. No new lung pathology isobserved. Included upper abdominal organs: No significant patholo gy is observedwithin the visualized upper abdominal organs.IMPRESSION: Small bilat eral pleural effusion. Right effusion is similar toprior study. Left effusion sl ightly decreased in size. Patchy right lungopacities which may be due to pneumo freddy similar to previous examinations. 1.8cm nodule along the right lateral wall of t he trachea at the level of thethoracic inlet not observed on the prior study and can be due to a mucous plug.Ct Chest W Cont F/uResult Date: 01/15/2019CT CHEST W CONT F/U Clinical data: R U L NODULE NEAR TRACHEA / BLOOD VESSEL.Priors: 01/10/2019 . Technique: CT scan of the chest was performed from thethoracic inlet to belo w the diaphragm following administration of intravenouscontrast. The acquisition da ta was reviewed in the axial, sagittal and coronalplane. 100 cc of low osmolar iodi nated contrast-isovue 300 was injectedintravenously for the examinatio n. Utilizing silver holloware assembler algorithm theexamination was performed to optimize imaging quality by utilizing the lowestpossible radiation dose. Findings: There is no evidence of pathologicallymphadenopathy within the m ediastinum, bilateral hilar and bilateral axillarylocation. There is no evidence of a central endobronchial or an endotrachealmass. Previously seen nodule along the right lateral wall of the trachea nolonger visualized. This may have repr esented a mucus lung which has dislodged.Coronary artery calcifications noted. Atherosclerotic thoracic aorta withoutaneurysmal dilatation. Elevated l eft hemidiaphragm. There is a small leftpleural effusion with underlying pas sive atelectatic changes similar to priorstudy. Improved previously seen ri ght lower lobe lung infiltrate. There isassociated small right pleural effusio n similar to prior examination. No newlung pathology is observed. Included upper ab dominal organs: No significantpathology is observed within the visualized upper abd ominal organs.IMPRESSION: 1. Previously seen tracheal nodule is no longer visualized. 2.Small left pleural effusion with underlying passive atelectatic changes s imilarto prior study. Stable elevation of the left hemidiaphragm. 3. Stable small right pleural effusion. Interval improvement in the right lower lobe lunginfiltrate. No new lung findings seen.Xr Chest PortResult Date: 01/21/2019Referring Phys ician: MONICA GOMEZ Patient Name: EVELIO CARLIN THIS IS AFINAL REPORT FROM [facility] DATE OF SERVICE: 2019-01-21 22:23:43 IMAGES: 1EXAM: XY CHEST PORTABL E HISTORY: Rule out sepsis COMPARISON: Chest x-ray 01/17/19FINDINGS: The patient is ro tated and obliquely positioned There is no airspaceconsolidation. No pneumothorax. Persistent small bilateral pleural effusions Thecardiac silhouette appears grossly st able. Limited assessment secondary topositioning and partially obscured hea rt borders The bones are demineralized.Limited visualization of t he thoracic spineIMPRESSION: Persistent small bilateral pleural effusions No radiograp hicevidence of acute airspace process THIS DOCUMENT HAS BEEN ELECTRONICALLY SIGNEDJ cecelia Cole MD 01/21/2019 22:46 EST Ammon Please call Imaging On [phone] ([phone]) with questions. This report was electronically signedby: Noel Cole MD 01/21/2019 10:48 PMXr Chest PortResult Date: 01/17/2019Portable chest x-ray. PRIOR EXAM: X-ray 01/10/2019 HISTORY: Hypoxia FINDINGS: Theheart is n ormal in size. The mediastinum and pulmonary vessels are unremarkable.There is no acu te infiltrate. The bony structures are intact.IMPRESSION: No acute pulmonary di sease. There is very limited visualization ofthe right lung due to patient position ing.Xr Chest PortResult Date: 01/10/2019XR CHEST PORT Clinical data: Sepsis Priors: 12/29/2018. Findings: Examination iscompromised due to limited inspiration and patient rotation. Heart size isunchanged. Haziness seen at the right lung base can be due to small effusionwith atelectasis/infiltrate. No confluent le ft lung process is seen. Noevidence of CHF.IMPRESSION: Limited study. Suspect right lung base process which may be due tosmall effusion with atelectasis/infilt rate.Xr Chest PortResult Date: 12/29/2018History: leukocytosis Technique : Portable chest x-ray 12/29/2018 11:01 AMComparison: 12/25/2018. FINDINGS: There is a right lower lobe infiltrate oratelectasis which is increased since p rior exam. There is poor inspiration.There is a small left pleural effusion. The exam is rotated. Evaluation of thecardiac silhouette is limited by projection. The visualized osseous structuresappear unremarkable.IMPRESSION: There is a righ t lower lobe infiltrate or atelectasis which isincreased since prior exam.Duplex Uppe r Ext Venous LeftResult Date: 12/26/2018DUPLEX UPPER EXT VENOUS LEFT Clinical Data: Arm swelling, DVT suspectedFindings: The visualized segments of the left upper ex tremity venous circulationfrom the level of the subclavian vein to the brachial vein is compressible andshows normal phasic flow without an intraluminal thrombus. In ad dition, theinternal jugular vein and the basilic vein is also patent. Extremely l imitedexam because the patient was unable to cooperate and this was done in a portabl efashion.IMPRESSION: No evidence of deep vein thrombosis within the visualized left up perextremity venous circulation. Limited study.Duplex Lower Ext Venous BilatResul t Date: 01/11/2019HISTORY: swelling to lower extremities TECHNIQUE: Bilateral lower e xtremityvenous Doppler ultrasound Using real time and color-flow Doppler as well assp ectral analysis and ultrasound examination was performed of the lowerextremities bi laterally. FINDINGS: On the right side the common femoral vein,superficial femoral vein along its entire course, as well as popliteal vein allappeared widely patent , were easily compressible, showed normal spontaneousflow. The calf veins were not visualized due to body habitus. On the left sidethe common femoral vein, superficial femoral vein along its entire course, aswell as popliteal vein all appeared widely pa tent, were easily compressible, andshowed normal spontaneous flow. The calf veins were not visualized due to bodyhabitus.IMPRESSION: Normal bilateral lower extremity venous Doppler ultrasound with noevidence of deep vein thrombosis. Medications reviewedCurrent Facility-Administered MedicationsMedicat ion Dose Route Frequency ALPRAZolam (XANAX) tablet 0.25 mg 0.25 mg Oral QHS vancom ycin (VANCOCIN) 1,000 mg in 0.9% sodium chloride 250 mL IVPB 1,000 mgIntraVENou s Q12H piperacillin-tazobactam (ZOSYN) 3.375 g in 0.9% sodium chloride (MBP/ADV) 100m L MBP 3.375 g IntraVENous Q8H phosphorus (K PHOS NEUTRAL) 250 mg tablet 1 Tab 1 Tab Oral BID acetylcysteine (MUCOMYST) 100 mg/mL (10 %) nebulizer solution 400 mg 4 mLNebulization BID RT multivit-folic acid-herbal 275 (WELLESSE PLUS) oral liq uid 30 mL 30 mL Per GTube DAILY budesonide (PULMICORT) 500 mcg/2 ml nebulizer suspe nsion 500 mcg NebulizationBID RT sodium chloride (NS) flush 5-10 mL 5-10 mL Int raVENous PRN cholestyramine-aspartame (QUESTRAN LIGHT) packet 4 g 4 g Oral TI D WITH MEALS cinacalcet (SENSIPAR) tablet 60 mg 60 mg Oral DAILY lamoTRIgine (LaMIC krystian) tablet 50 mg 50 mg Per G Tube BID pantoprazole (PROTONIX) granules for ora l suspension 40 mg 40 mg Per G TubeACB valproic acid (as sodium salt) (DEPAKENE ) 250 mg/5 mL (5 mL) oral solution 750mg 750 mg Oral BID acetaminophen (TYLENOL) cha ution 650 mg 650 mg Oral Q4H PRN heparin (porcine) injection 5,000 Units 5,000 U nits SubCUTAneous Q12H influenza vaccine 2018- (65 yrs+)(PF) (FLUZONE HIGH-DOSE ) injection 0.5 mL0.5 mL IntraMUSCular PRIOR TO DISCHARGE albuterol-ipratropium (DUO -NEB) 2.5 MG-0.5 MG/3 ML 3 mL Nebulization Q6H RTAssessment/Plan:Hospital Problems Date Reviewed: 01/20/2019 Codes Class Noted POA Acute respiratory failure with hypoxia (HCC) ICD-10-CM: J96.01ICD-9-CM: 518.81 01/10/2019 Unknown Pneumonia invo lving right lung ICD-10-CM: J18.9ICD-9-CM: 486 01/10/2019 Unknown Hyponatremia ICD- 10-CM: E87.1ICD-9-CM: 276.1 01/10/2019 YesAssessment:FeverAcute Respiratory Jeanette lure with Hypercapnia and HypoxiaPneumonia likely Aspiration RLL- resolvingAtelecta sisDysphagia s/p surgical placed pegFor conversion of GT to Jtube Lung nodule right lateral wall of trachea(not visualized on f/u ct scan with contrast)Mentally ch allengedSeizureHyperparathyroidLeft ankle and pedal edema- Resolved(DVT Ruled OUT)Plan : IV vancomycin and zosyn per IDFollow up cultures Continuous O2 NC incr to 4 lpm; nightly Bipap per pulmonary off antibioticsNebulizersFollow culturesRest raints with mitts PRNContinue with bolus TF for nowD/W Dr Mansfield, gi will place pt o n the endo scheduleand ordrering the Kit (consent still pending)Pulmonary f/uRedu ce ativan 0.5mg to 0.25 mgDischarge planningChristofer Gonzalez 19Time: 1:18 PM Name Value Range Interpretation Code Description Data Harriett rce(s) Supporting Document(s ) ID Date Data Source [id number] 01/24/2019 12:03:13 PM EDT [facility] Progress NoteEmanuel [id number] y.o.Adm it Date: 01/10/2019Subjective:Patient comfortableReview of systems not obtaine d due to patient factors.Objective:Visit VitalsBP 112/67 (BP 1 Location: Right ar m, BP Patient Position: At rest)Pulse 87Temp 97.2 F (36.2 C)Resp 20Ht 5' 2" (1.575 m)Wt 56.9 kg (125 lb 8 oz)SpO2 93%BMI 22.95 kg/m Intake/Output Summary (Last 24 hour s) at 01/24/2019 1201Last data filed at 01/24/2019 0541Gross per 24 hourIntake 6 80 mlOutput 650 mlNet 30 mlCurrent Facility-Administered MedicationsMedicat ion Dose Route Frequency Provider Last Rate Last Dose ALPRAZolam (XANAX) tablet 0.2 5 mg 0.25 mg Oral QHS Mili Hills DO 0.25mg at 01/23/19 2139 vancomycin (VAN COCIN) 1,000 mg in 0.9% sodium chloride 250 mL IVPB 1,000 mgIntraVENous Q12H Monica Gomez MD 125 mL/hr at 01/23/19 2352 1,000 mg at1 2352 piperacillin-tazobac millan (ZOSYN) 3.375 g in 0.9% sodium chloride (MBP/ADV) 100mL MBP 3.375 g IntraVENous Q8H Monica Gomez MD 25 mL/hr at 01/24/19 62923.375 g at 01/24/19 0830 phosphorus (K PHOS NEUTRAL) 250 mg tablet 1 Tab 1 Tab Oral BID Mili Hills DO 1 Tab at 1 0830 acetylcysteine (MUCOMYST) 100 mg/mL (10 %) nebulizer solution 400 mg 4 mLNebulization BID RT Krystian Monae MD Stopped at 01/24/19 0800 multivit-folic acid-herbal 275 (WELLESSE PLUS) oral liquid 30 mL 30 mL Per GTube DAILY Patricio Hills DO 30 mL at 01/24/19 0840 budesonide (PULMICORT) 500 mcg/2 ml nebulizer suspe nsion 500 mcg NebulizationBID RT Mili Hills DO 500 mcg at 01/24/19 0802 sodium chloride (NS) flush 5-10 mL 5-10 mL IntraVENous PRN Jalyn Romero MD 10 mL at 01/19/19 1737 cholestyramine-aspartame (QUESTRAN LIGHT ) packet 4 g 4 g Oral TID WITH MEALSMili Hills DO 4 g at 01/24/19 0830 cina calcet (SENSIPAR) tablet 60 mg 60 mg Oral DAILY Mili Hills DO 60mg at 01/24 0830 lamoTRIgine (LaMICtal) tablet 50 mg 50 mg Per G Tube BID Mili Hills D O50 mg at 01/24/19 0830 pantoprazole (PROTONIX) granules for oral suspension 40 mg 40 mg Per G TubeACB Mili Hills DO 40 mg at 01/24/19 0830 valproic ac id (as sodium salt) (DEPAKENE) 250 mg/5 mL (5 mL) oral solution 750mg 750 mg Oral BID Mili Hills DO 750 mg at 01/24/19 0830 acetaminophen (TYLENOL) solution 6 50 mg 650 mg Oral Q4H PRN Mili Hills DO 650 mg at 01/24/19 0830 heparin (porc ine) injection 5,000 Units 5,000 Units SubCUTAneous Q12H Mili Hills DO 5 ,000 Units at 01/24/19 0100 influenza vaccine 2019- (65 yrs+)(PF) (FLUZONE H I[facility]-DOSE) injection 0.5 mL0.5 mL IntraMUSCular PRIOR TO DISCHARGE Mili Hills DO albuterol-ipratropium (DUO-NEB) 2.5 MG-0.5 MG/3 ML 3 mL Nebulization Q6 H Krystian Blanco MD 3 mL at 01/24/19 0802Physical Exam:Physical Exam:General: Awake, No distressNeck: SuppleLungs: Clear to auscultationHeart: S1, S2Abdo men: Soft, non-tender. Bowel sounds normal. No masses, No organomegaly.Data Review: CBC w/DiffRecent Labs WBC 8.3RBC 3.02*HGB 10.0*HCT 31.3*MCV 103.6*MCH 33. 1MCHC 31.9RDW 15.8* Recent Labs MONOS 10EOS 3BASOS 0RDW 15.8 * Lab ResultsComponent Value Date/Time PLATELET 551 (H) 01/24/2019 05:35 AMComp rehensive Metabolic ProfileRecent Labs 01/23/1905NA 141 140 141K 3.7 4.1 4.3CL 101 98 101CO2 35* 37* 39*BUN 24* 24* 19*CREA 0.40* 0.44* 0 .40* Recent Labs 01/23/1905 447CA 9.7 10.0 9.7PHOS 3.2 3.3 2.9ALB 1.7* 1.6* 1.5*X-RAY (Last 24 Hours)No results found.IMPRESSION:Patient Active Problem ListDiagnosis Code 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 COPD (chronic obstr uctive pulmonary disease) ([facility]) J44.9 Acute respiratory distress R06.03 Pneumonia J 18.9 COPD exacerbation ([facility]) J44.1 Sepsis due to undetermined organism ([facility]) A41.9 Generalized anxiety disorder F41.1 Acute respiratory failure with hypoxia ([facility]) J 96.01 Pneumonia involving right lung J18.9 Hyponatremia E87.1 PLAN: Stable renal function Will f/u every other day Further recommendations will be based on the pat ient's response to recommendedtreatment and results of the investigation ordered.Toni Iverson MD01/24/201912:01 PM Name Value Range Interpretation Code Description Data Harriett rce(s) Supporting Document(s ) ID Date Data Source [id number] 01/24/2019 08:00:03 AM EDT [facility] Bedside and Verbal shift change report g ankit to Erlinda, RN (oncoming nurse) Nessa Montoya RN (offgoing nurse). Report included the following information SBAR, Kardex, MARand Recent Results. Name Value Range Interpretation Code Description Data Harriett rce(s) Supporting Document(s ) ID Date Data Source [id number] 01/24/2019 10:09:07 AM EDT [facility] Name Value Range Interpretation Description Data Sup porting Code Source(s) Document(s ) Leukocytes 8.3 K/uL 4.8-10.6 [facility] - [#/volume] in Good Blood by [facility] Erythrocytes 3.02 4.70-6.0 Below low normal [facility] - [#/volume] in M/uL 0 Good Blood by [facility] Hemoglobin 10.0 14.0-18. Below low normal [facility] - [Mass/volume] in g/dL 0 Good Blood [facility] Hematocrit 31.3 % 42.0-52. Below low normal [facility] - [Volume 0 Good Fraction] of [facility] Blood by Hospital Automated count Erythrocyte mean 103.6 FL 81.0-94. Above high normal [facility] - corpuscular 0 Good volume [Entitic Taoist volume] by Hospital Automated count Erythrocyte mean 33.1 PG 27.0-35. [facility] - corpuscular 0 Good hemoglobin Taoist [Entitic mass] Hospital by Automated count Erythrocyte mean 31.9 30.7-37. [facility] - corpuscular g/dL 3 Good hemoglobin [facility] [Mass/volume] by Automated count Erythrocyte 15.8 % 11.5-14. Above high normal [facility] - distribution 0 Good width [Ratio] by Taoist Automated count [facility] Platelets 551 K/uL 130-400 Above high normal [facility] - [#/volume] in Good Blood by [facility] Automated count Hospital RESULTS VERIFIED BY SMEAR Platelet mean volume 9.2 FL 9.2-11.8 [facility] - G ood [Entitic volume] in [facility] Blood by Automated count Segmented 70 % 48.0-72.0 [facility] - Good neutrophils/100 [facility] ital leukocytes in Blood Lymphocytes/100 17 % 18.0-40.0 Below low normal [facility] - Good leukocytes in [facility] Monocytes/100 leukocytes 10 % 2.0-12.0 [facility] - Good in [facility] Eosinophils/100 3 % 0.0-7.0 [facility] - Good leukocytes in [facility] Basophils/100 leukocytes 0 % 0.0-3.0 [facility] - Good in [facility] Segmented neutrophils 5.8 K/UL 1.5-6.6 [facility] - Good [#/volume] in [facility] Lymphocytes [#/volume] 1.5 K/UL 1.5-3.5 [facility] - Good in [facility] Monocytes [#/volume] in 0.8 K/UL 0.0-1.0 [facility] - Good [facility] Eosinophils [#/volume] 0.2 K/UL 0.0-0.7 [facility] - Good in [facility] Basophils [#/volume] in 0.0 K/UL 0.0-0.1 [facility] - Good [facility] Differential cell count [facility] - Good method - Blood [facility] Immature 1 % 0.0-2.0 [facility] by Automated count ID Date Data Source [id number] 01/24/2019 06:58:20 AM EDT [facility] - Good [facility] Name Value Range Interpretation Description Data Sup porting Code Source(s) Document(s ) Magnesium 1.9 mg/dL 1.6-2.6 [facility] - Good [Mass/volume] [facility] in Serum or Hospital Plasma ID Date Data Source [id number] 01/24/2019 06:58:20 AM EDT [facility] - Good [facility] Name Value Range Interpretation Description Data Sup porting Code Source(s) Document(s ) Sodium 141 136-145 [facility] - Good [Moles/volume] mmol/L [facility] in Serum or Hospital Plasma Potassium 3.7 3.5-5.1 [facility] - Good [Moles/volume] mmol/L [facility] in Serum or Hospital Plasma Chloride 101 98-107 [facility] - Good [Moles/volume] mmol/L [facility] in Serum or Hospital Plasma Carbon 35 21-32 Above high normal [facility] - Good dioxide, total mmol/L [facility] [Moles/volume] Hospital in Serum or Plasma Anion gap in 9 mmol/L 10-20 Below low normal [facility] - Go od Serum or [facility] Glucose 82 mg/dL 74-106 [facility] - Good [Mass/volume] [facility] in Serum or Hospital Plasma Urea nitrogen 24 mg/dL 7-18 Above high normal [facility] - Good [Mass/volume] [facility] in Serum or Hospital Plasma Creatinine 0.40 0.70-1.3 Below low normal [facility] - Good [Mass/volume] mg/dL 0 [facility] in Serum or Hospital Plasma Glomerular >60 [facility] - Good filtration [facility] rate/1.73 sq M Hospital predicted among blacks [Volume Rate/Area] in Serum or Plasma by Creatinine-bas ed formula (MDRD) Glomerular >60 [facility] - Good filtration [facility] rate/1.73 sq M Hospital predicted among non-blacks [Volume Rate/Area] in Serum or Plasma by Creatinine-bas ed formula (MDRD) Calcium 9.7 8.5-10.1 [facility] - Good [Mass/volume] mg/dL [facility] in Serum or Hospital Plasma Phosphate 3.2 2.5-4.9 [facility] - Good [Mass/volume] mg/dL [facility] in Serum or Hospital Plasma Albumin 1.7 g/dL 3.5-4.7 Below low normal [facility] - Good [Mass/volume] [facility] in Serum or Hospital Plasma by Bromocresol purple (BCP) dye binding method ID Date Data Source [id number] 01/24/2019 12:09:37 AM EDT [facility] - Good [facility] Problem: Falls - Risk ofGoal: *Absence o f FallsDescriptionDocument Samra Fall Risk and appropriate interventions in the jhon wsheet.Outcome: Progressing Towards GoalNote:Fall Risk Interventions:Mobilit y Interventions: Bed/chair exit alarmMentation Interventions: Bed/chair exit alarm, Door open when patientunattended, More frequent rounding, Room close to [facility] station, ToiletingroundsMedication Interventions: Bed/chair exit alarmElinm nation Interventions: Bed/chair exit alarm, Toileting schedule/hourlyroundsHistory o f Falls Interventions: Door open when patient unattended, Room close [facility]'s station Problem: Pressure Injury - Risk ofGoal: *Prevention of pressure injuryDescriptio nDocument Butch Scale and appropriate interventions in the flowsheet.Outcome: Progressing Towards GoalNote:Pressure Injury Interventions:Sensory Interventions: Mon itor skin under medical devices, Pressureredistribution bed/mattress (bed type), Suspension boots, Turn and repositionapprox. every two hours (ariel ws and wedges if needed), Float heelsMoisture Interventions: Internal/External urinary devices, Check forincontinence Q2 hours and as needed, Apply protective barrier, cre ams andemollients, Absorbent underpadsActivity Interventions: Pressur e redistribution bed/mattress(bed type)Mobility Interventions: Float heels , Pressure redistribution bed/mattress (bedtype), Suspension boots, Turn and re position approx. every two hours(pillow andwedges)Nutrition Interventions: Docum ent food/fluid/supplement intakeFriction and Shear Interventions: Foam dressings/montague sparent film/skin sealants,Apply protective barrier, creams and emollientsProblem: T issue Perfusion - Cardiopulmonary, AlteredGoal: *Absence of hypoxiaOutcome: Progressing Towards Goal Name Value Range Interpretation Code Description Data Harriett rce(s) Supporting Document(s ) ID Date Data Source [id number] 01/23/2019 06:45:17 PM EDT [facility] Progress NoteMID-[facility] ,[facility].Krystian Monae MD., F.C.C.P.Stella Hamilton MD., F.C.C.P. [address] [place] [id number] [place] [address] [phone]: Evelio Carlin Sex: male DOA: 01/10/2019Da te of : 1950 Age: 68 y.o. LOS: LOS: 13 daysSubjective:Mr. Maximiliano mata is a 68 y.o. year old male who is being seen for ACJUTERESPIRATORY FAILURE , ASP . PNEUMONIA , COPD , MENTAL RETARDATION . G IAWAITING CONSENT DF FROM FAMILY TO CONVERT GT TO J- TUBE .Objective:Vital Signs:Patient Vitals fo r the past 24 hrs: BP Temp Pulse Resp [id number]/23/19 1512 106/59 97.9 F (36.6 C) 90 18 100 %01/23/19 1124 114/67 97.9 F (36.6 C) 81 16 97 %01/23/19 0821 99/55 97.4 F (36.3 C) 90 16 100 %01/23/19 0425 116/61 97.3 F (36.3 C) 82 16 99 %01/23 0239 - - - - 99 %01/22/19 1949 122/73 97.2 F (36.2 C) 96 18 94 %Pulse OX:SpO 2 Readings from Last 6 Encounters:01/23/19 100%12/30/18 96%11/27/18 91%09/26/15 96% @LASTSAO2(6)@Physical Exam:COMFORTABLE . General: Alert, cooperative, LESS di stress, appears stated age. Head: Normocephalic, without obvious abnormal ity, atraumatic. Eyes: Conjunctivae/corneas clear. PERRL, EOMs intact. Nose: Nares normal. No drainage or sinus tenderness Thr oat: Lips, mucosa, and tongue normal Neck: Supple, symmetrical, trachea midline, no adenopathy,thyroid: no enlargement/tenderness/nodules, no carot id bruit and no JVD. Lungs: WHEEZING AND RHONCHI , FEW Rales AT B ASES to auscultationbilaterally. Chest Wall: No tenderness or deformity. Heart: Regular rate and rhythm, S1, S2 normal, no murmur, click,rub or nettles p. Abdomen: Soft, non-tender. Bowel sounds normal. No masses, No organomeg edison. Extremities: Extremities normal, atraumatic, no cyanosis or edema. Pulses: 4+ bilaterally. Skin: Skin color, texture, turgor normal. No rashes or lesions. Neurologic: CNII-XII intact. No focal motor or sensory defici t.Intake and Output:Last three shifts: 01/21 1901 - 01/23 0700In: 610 [I.V.:350]Out: 1095 [Urine:1095]Lab Results:Recent Results (from the past 24 hour(s))RENAL FUNCTION PANEL Collection Time: 01/23/19 5:20 AMResult Value Ref Range Sodium 140 136 - 145 mmol/L Potassium 4.1 3.5 - 5.1 mmol/L Chloride 98 98 - 107 mmol/L CO2 37 (H) 2 1 - 32 mmol/L Anion gap 9 (L) 10 - 20 mmol/L Glucose 72 (L) 74 - 106 mg/dL BUN 24 (H) 7 - 18 mg/dL Creatinine 0.44 (L) 0.70 - 1.30 mg/dL GFR est AA >60 >60 ml/min/1.73m2 G FR est non-AA >60 >60 ml/min/1.73m2 Calcium 10.0 8.5 - 10.1 mg/dL Phosphorus 3.3 2.5 - 4.9 mg/dL Albumin 1.6 (L) 3.5 - 4.7 g/dLMAGNESIUM Collection Time: 01/23/19 5:20 AMResult Value Ref Range Magnesium 1.9 1.6 - 2.6 mg/dLVANCOMYCIN, TROUGH Collec tion Time: 01/23/19 11:05 AMResult Value Ref Range Vancomycin,trough 8.8 (L) 10 - 20 ug/mLABG:No results for input(s): PH, PCO2, PO2, HCO3, FIO2 in the last 72 hours.Rec ent Glucose Results:Lab ResultsComponent Value Date/Time GLU 72 (L) 01/23/2019 05 :20 AM@LABAPCYTOINTERPRETATION@CULTURESAll Micro Results Procedure Component Value Units Date/Time CULTURE, URINE [[id number]] Collected: 01/21/19 2315 Order Status: Completed Specimen: Cath Urine Updated: 01/23/19 1142 Special Requests: NO SPEC IAL REQUESTS Culture result: NO GROWTH 1 DAY CULTURE, BLOOD [[id number]] Collected: 2330 Order Status: Completed Specimen: Blood Updated: 01/23/1940 Special Requests: NO SPECIAL REQUESTS Culture result: NO GROWTH 2 DAYS CULTURE , BLOOD [[id number]] Collected: 01/21/19 2300 Order Status: Completed Specimen: Bloo d Updated: 01/23/1940 Special Requests: NO SPECIAL REQUESTS Culture result: NO GROWTH 2 DAYS CULTURE, BLOOD [[id number]] Collected: 01/10/19 0755 Order Status: Completed Specimen: Blood Updated: 01/15/19 0838 Special Requests: NO SPEC IAL REQUESTS Culture result: NO GROWTH 5 DAYS CULTURE, BLOOD [[id number]] Collecte d: 01/10/19 0740 Order Status: Completed Specimen: Blood Updated: 01/15/19 0838 Special Requests: NO SPECIAL REQUESTS Culture result: NO GROWTH 5 DAYS CULTURE , URINE [[id number]] Collected: 01/10/19 0858 Order Status: Completed Specimen: Urin e from Clean catch Updated: Special Requests: NO SPECIAL REQUESTS C ulture result: NO GROWTH 1 DAY CULTURE, BLOOD [[id number]] Collected: 01/10/19 0800 Or bassem Status: Canceled Specimen: BloodImages:@IMAGESENCORD@Xr Chest Sngl VResult Date: 12/25/2018Portable chest x-ray. PRIOR EXAM: X-ray 12/18/2018 HISTORY: Pneu monia FINDINGS:The heart is normal in size. The mediastinum and pulmonary vessels ar eunremarkable. There is a small right pleural effusion.. A tube projected overthe left upper quadrant of the abdomen..IMPRESSION: Small right pleural effusion.Ct Chest Wo ContResult Date: 01/10/2019CT CHEST WO CONT Clinical data: evaluation of pneumonia r t lung. Priors:12/18/2018 Technique: CT scan of the chest was performed from the thoraci c inletto below the diaphragm without administration of intravenous contrast. Theacquisition data was reviewed in the axial, sagittal and coronal plane.Utiliz ing silver holloware assembler algorithm the examination was performed to optimizeimaging quality by utilizing the lowest possible radiation dose. Findings: Thereis no evidence of p athological lymphadenopathy within the mediastinum, bilateralhilar and bilatera l axillary location. There is a 1.8 cm nodule along the rightwall of the trache a at the level of the thoracic inlet (best seen on image 13ofseries 2) not seen on the prior study. This may be due to a mucous plug. Noadditional endotracheal or endo bronchial lesion is noted.Normal heart size.Coronary artery calcifications note d. Atherosclerotic thoracic aorta withoutaneurysmal dilatation. Evaluation lung windows demonstrates patchy right lowerlobe lung infiltrate. There is asso ciated small right pleural effusion similarto prior. There is also small left pleural effusion with underlying passiveatelectasis slightly decreased from the prior study. No new lung pathology isobserved. Included upper abdominal organs: No significant p athology is observedwithin the visualized upper abdominal organs.IMPRESSION: Small bilateral pleural effusion. Right effusion is similar toprior study. Left effusion slightly decreased in size. Patchy right lungopacities which may be due to pneumo freddy similar to previous examinations. 1.8cm nodule along the right lateral wall of t he trachea at the level of thethoracic inlet not observed on the prior study and can be due to a mucous plug.Ct Chest W Cont F/uResult Date: 01/15/2019CT CHEST W CONT F/U Clinical data: R U L NODULE NEAR TRACHEA / BLOOD VESSEL.Priors: 01/10/2019 . Technique: CT scan of the chest was performed from thethoracic inlet to belo w the diaphragm following administration of intravenouscontrast. The acquisition da ta was reviewed in the axial, sagittal and coronalplane. 100 cc of low osmolar iodi nated contrast-isovue 300 was injectedintravenously for the examinatio n. Utilizing silver holloware assembler algorithm theexamination was performed to optimize imaging quality by utilizing the lowestpossible radiation dose. Findings: There is no evidence of pathologicallymphadenopathy within the m ediastinum, bilateral hilar and bilateral axillarylocation. There is no evidence of a central endobronchial or an endotrachealmass. Previously seen nodule along the right lateral wall of the trachea nolonger visualized. This may have repr esented a mucus lung which has dislodged.Coronary artery calcifications noted. Atherosclerotic thoracic aorta withoutaneurysmal dilatation. Elevated l eft hemidiaphragm. There is a small leftpleural effusion with underlying pas sive atelectatic changes similar to priorstudy. Improved previously seen ri ght lower lobe lung infiltrate. There isassociated small right pleural effusio n similar to prior examination. No newlung pathology is observed. Included upper ab dominal organs: No significantpathology is observed within the visualized upper abd ominal organs.IMPRESSION: 1. Previously seen tracheal nodule is no longer visualized. 2.Small left pleural effusion with underlying passive atelectatic changes s imilarto prior study. Stable elevation of the left hemidiaphragm. 3. Stable small right pleural effusion. Interval improvement in the right lower lobe lunginfiltrate. No new lung findings seen.Xr Chest PortResult Date: 01/21/2019Referring Phys ician: MONICA GOMEZ Patient Name: EVELIO CARLIN THIS IS AFINAL REPORT FROM [facility] DATE OF SERVICE: 2019-01-21 22:23:43 IMAGES: 1EXAM: XY CHEST PORTABL E HISTORY: Rule out sepsis COMPARISON: Chest x-ray 01/17/19FINDINGS: The patient is ro tated and obliquely positioned There is no airspaceconsolidation. No pneumothorax. Persistent small bilateral pleural effusions Thecardiac silhouette appears grossly st able. Limited assessment secondary topositioning and partially obscured hea rt borders The bones are demineralized.Limited visualization of t he thoracic spineIMPRESSION: Persistent small bilateral pleural effusions No radiograp hicevidence of acute airspace process THIS DOCUMENT HAS BEEN ELECTRONICALLY SIGNEDJ cecelia Cole MD 01/21/2019 22:46 EST Ammon Please call Imaging On [phone].[phone] ([phone]) with questions. This report was electronically signedby: Noel Cole MD 01/21/2019 10:48 PMXr Chest PortResult Date: 01/17/2019Portable chest x-ray. PRIOR EXAM: X-ray 01/10/2019 HISTORY: Hypoxia FINDINGS: Theheart is n ormal in size. The mediastinum and pulmonary vessels are unremarkable.There is no acu te infiltrate. The bony structures are intact.IMPRESSION: No acute pulmonary di sease. There is very limited visualization ofthe right lung due to patient position ing.Xr Chest PortResult Date: 01/10/2019XR CHEST PORT Clinical data: Sepsis Priors: 12/29/2018. Findings: Examination iscompromised due to limited inspiration and patient rotation. Heart size isunchanged. Haziness seen at the right lung base can be due to small effusionwith atelectasis/infiltrate. No confluent le ft lung process is seen. Noevidence of CHF.IMPRESSION: Limited study. Suspect right lung base process which may be due tosmall effusion with atelectasis/infilt rate.Xr Chest PortResult Date: 12/29/2018History: leukocytosis Technique : Portable chest x-ray 12/29/2018 11:01 AMComparison: 12/25/2018. FINDINGS: There is a right lower lobe infiltrate oratelectasis which is increased since p rior exam. There is poor inspiration.There is a small left pleural effusion. The exam is rotated. Evaluation of thecardiac silhouette is limited by projection. The visualized osseous structuresappear unremarkable.IMPRESSION: There is a righ t lower lobe infiltrate or atelectasis which isincreased since prior exam.Duplex Uppe r Ext Venous LeftResult Date: 12/26/2018DUPLEX UPPER EXT VENOUS LEFT Clinical Data: Arm swelling, DVT suspectedFindings: The visualized segments of the left upper ex tremity venous circulationfrom the level of the subclavian vein to the brachial vein is compressible andshows normal phasic flow without an intraluminal thrombus. In ad dition, theinternal jugular vein and the basilic vein is also patent. Extremely l imitedexam because the patient was unable to cooperate and this was done in a portabl efashion.IMPRESSION: No evidence of deep vein thrombosis within the visualized left up perextremity venous circulation. Limited study.Duplex Lower Ext Venous BilatResul t Date: 01/11/2019HISTORY: swelling to lower extremities TECHNIQUE: Bilateral lower e xtremityvenous Doppler ultrasound Using real time and color-flow Doppler as well assp ectral analysis and ultrasound examination was performed of the lowerextremities bi laterally. FINDINGS: On the right side the common femoral vein,superficial femoral vein along its entire course, as well as popliteal vein allappeared widely patent , were easily compressible, showed normal spontaneousflow. The calf veins were not visualized due to body habitus. On the left sidethe common femoral vein, superficial femoral vein along its entire course, aswell as popliteal vein all appeared widely pa tent, were easily compressible, andshowed normal spontaneous flow. The calf veins were not visualized due to bodyhabitus.IMPRESSION: Normal bilateral lower extremity venous Doppler ultrasound with noevidence of deep vein thrombosis. Medications:Current Facility-Administered MedicationsMedication Dose Route Frequen cy acetaZOLAMIDE SR (DIAMOX) capsule 500 mg 500 mg Oral ONCE ALPRAZolam (XANAX) tab let 0.25 mg 0.25 mg Oral QHS vancomycin (VANCOCIN) 1,000 mg in 0.9% sodium chlor wade 250 mL IVPB 1,000 mgIntraVENous Q12H piperacillin-tazobactam (ZOSYN) 3.375 g in 0.9% sodium chloride (MBP/ADV) 100mL MBP 3.375 g IntraVENous Q8H phosphorus (K P HOS NEUTRAL) 250 mg tablet 1 Tab 1 Tab Oral BID acetylcysteine (MUCOMYST) 100 mg/mL (10 %) nebulizer solution 400 mg 4 mLNebulization BID RT multivit-folic ac id-herbal 275 (WELLESSE PLUS) oral liquid 30 mL 30 mL Per GTube DAILY budesonide (P ULMICORT) 500 mcg/2 ml nebulizer suspension 500 mcg NebulizationBID RT sodium chlor wade (NS) flush 5-10 mL 5-10 mL IntraVENous PRN cholestyramine-aspartame (QUESTRAN LIGHT) packet 4 g 4 g Oral TID WITH MEALS cinacalcet (SENSIPAR) tablet 60 mg 60 m g Oral DAILY lamoTRIgine (LaMICtal) tablet 50 mg 50 mg Per G Tube BID pantoprazol e (PROTONIX) granules for oral suspension 40 mg 40 mg Per G TubeACB valproic acid ( as sodium salt) (DEPAKENE) 250 mg/5 mL (5 mL) oral solution 750mg 750 mg Oral BID ac etaminophen (TYLENOL) solution 650 mg 650 mg Oral Q4H PRN heparin (porcine) injectio n 5,000 Units 5,000 Units SubCUTAneous Q12H influenza vaccine (65 yrs+)(PF) (FLUZONE HIGH-DOSE) injection 0.5 mL0.5 mL IntraMUSCular PRIOR TO DISCHARGE albute rol-ipratropium (DUO-NEB) 2.5 MG-0.5 MG/3 ML 3 mL Nebulization Q6H RTActive Problems: Acute respiratory failure with hypoxia (HCC) (01/10/2019) Pneumonia involving r ight lung (01/10/2019) Hyponatremia (01/10/2019)Assessment:1 ACUTE HYPERCA PNIC AND HYPOXIC RESPIRATORY FAILURE1. ATELECTASIS R U L RESOLVED 2. PNEUMO FREDDY R L L AND L L L RESOLVED 3. AC COPD BETTER 4. MENTAL RETARDATION5. CAT SCA N CHEST WITH I V CONTRAST RULED OUT LUNG NODULE6. DYSPHAGIA7. EPILEPSY 8. METABO LIC ENCEPHALOPATHY IMPROVING9. RT .PLEURAL EFFUSION RESOLVED PLAN : ON I V ZOSYN AND VACO PER DR MIR NEB Q 4 H BIPAP FOR RESPIRATORY . DISTRE SS BUDESONIDE 500 MCG VIA MINI NEB Q 1 2 H MUCOMYST VIA MINI NEB BID PROGNOSIS IS GUARDED .PATIENT IS AWAITING CONSENT FOR J TUBE Krystian Monae MD F. C.C.P.January 23, 20196:41 PM Name Value Range Interpretation Code Description Data Harriett rce(s) Supporting Document(s ) ID Date Data Source [id number] 01/23/2019 04:19:27 PM EDT [facility] ID Progress Note01/23/2019Subjective:Pat ient with mental retardation,recurrent aspiration pneumonia.Fever trending down Non verbal,unable to provide history.Objective:Vitals:Patient Vitals for the past 24 hrs: BP Temp Pulse Resp [id number]/23/19 1512 106/59 97.9 F (36.6 C) 90 18 100 %01/23/19 1124 114/67 97.9 F (36.6 C) 81 16 97 %01/23/19 0821 99/55 97.4 F (36.3 C) 90 16 100 %01/23/19 0425 116/61 97.3 F (36.3 C) 82 16 99 %01/23 0239 - - - - 99 %01/22/19 1949 122/73 97.2 F (36.2 C) 96 18 94 %01/22/19 161 9 114/56 98 F (36.7 C) 98 20 95 %Tmax: Temp (24hrs), Av.6 F (36.4 C), Min :97.2 F (36.2 C), Max:98 F(36.7 C)Physical Exam:General: Lethargic non verbalNeck: Supple, symmetrical, trachea midline, no adenopathLungs: Decrease b reath sounds at bases.Heart: Regular rate and rhythm, S1, S2 normalAbdomen: Soft , non-tender. Bowel sounds normal. No masses, No organomegaly.+feeding tubeBack: No CVA tenderness.Extremities: Chronic lymphedema.Pulses: 2+ and symmetric all extremities.Skin: Skin color, texture, turgor normal. No rashes or lesionsCurrent Faci lity-Administered MedicationsMedication Dose Route Frequency acetaZOLAMIDE SR (DIAMO X) capsule 500 mg 500 mg Oral ONCE ALPRAZolam (XANAX) tablet 0.25 mg 0.25 mg Oral QHS vancomycin (VANCOCIN) 1,000 mg in 0.9% sodium chloride 250 mL IVPB 1,0 00 mgIntraVENous Q12H piperacillin-tazobactam (ZOSYN) 3.375 g in 0.9% sodium chloride (MBP/ADV) 100mL MBP 3.375 g IntraVENous Q8H phosphorus (K P HOS NEUTRAL) 250 mg tablet 1 Tab 1 Tab Oral BID acetylcysteine (MUCOMYST) 100 mg/mL (10 %) nebulizer solution 400 mg 4 mLNebulization BID RT multivit-folic ac id-herbal 275 (WELLESSE PLUS) oral liquid 30 mL 30 mL Per GTube DAILY budesonide (P ULMICORT) 500 mcg/2 ml nebulizer suspension 500 mcg NebulizationBID RT sodium chlor wade (NS) flush 5-10 mL 5-10 mL IntraVENous PRN cholestyramine-aspartame (QUESTRAN LIGHT) packet 4 g 4 g Oral TID WITH MEALS cinacalcet (SENSIPAR) tablet 60 mg 60 m g Oral DAILY lamoTRIgine (LaMICtal) tablet 50 mg 50 mg Per G Tube BID pantoprazol e (PROTONIX) granules for oral suspension 40 mg 40 mg Per G TubeACB valproic acid ( as sodium salt) (DEPAKENE) 250 mg/5 mL (5 mL) oral solution 750mg 750 mg Oral BID ac etaminophen (TYLENOL) solution 650 mg 650 mg Oral Q4H PRN heparin (porcine) injectio n 5,000 Units 5,000 Units SubCUTAneous Q12H influenza vaccine (65 yrs+)(PF) (FLUZONE HIGH-DOSE) injection 0.5 mL0.5 mL IntraMUSCular PRIOR TO DISCHARGE albute rol-ipratropium (DUO-NEB) 2.5 MG-0.5 MG/3 ML 3 mL Nebulization Q6H RTLabs:Recent Labs 01/23/1904UN 24* 19* 17CREA 0.44* 0.40* 0.37*Cultures :Lab ResultsComponent Value Date/Time Culture result: NO GROWTH 2 DAYS 01/21/2019 11:3 0 PM Culture result: NO GROWTH 1 DAY 01/21/2019 11:15 PM Culture result: NO G ROWTH 2 DAYS 01/21/2019 11:00 PMRadiology:No results found.Assessment: Aspiration pn eumonia BL small pleural effusion Acute hypoxic respiratory failure. Dysphagia Pleural effusion. . COPD fever Plan:1. Continue IV vancomycin and zosyn2. Follo w cultures.Natasha Dudley MDKarmanos Cancer Center 20184:16 PM Name Value Range Interpretation Code Description Data Harriett rce(s) Supporting Document(s ) ID Date Data Source [id number] 01/23/2019 02:57:40 PM EDT [facility] Call to [facility] for return today. PRIfaxed. [place] mobile to /u at 6:00. RN advis edPatient is lethargic. Call to emergency contact Joyce [phone] - messagelef t about plan for discharge todayCare Management InterventionsPCP Verified by CM: YesMode of Transport at Discharge: S([facility])Transition of C are Consult (CM Consult): Discharge PlanningMyChart Signup: NoDischarge Dura ble Medical Equipment: NoPhysical Therapy Consult: NoOccupational Therapy Consult: NoSpeech Therapy Consult: NoCurrent Support Network: Nursing Facility([facility] )Plan discussed with Pt/Family/Caregiver: YesFreedom of Choice Offered: YesVeteran Resource Information Provided?: RefusedDischarge LocationDischarge Place ment: senior living facility([facility]) Name Value Range Interpretation Code Description Data Harriett rce(s) Supporting Document(s ) ID Date Data Source [id number] 01/23/2019 02:34:33 PM EDT [facility] Diamox capsule held, patient has G-Tube and capsule cannot be crushed or broken,must be taken whole as per pharmacy. Called p laced to Dr. Frankel awaiting callback Name Value Range Interpretation Code Description Data Harriett rce(s) Supporting Document(s ) ID Date Data Source [id number] 01/23/2019 12:47:23 PM EDT [facility] Dr. Hills called and said she will be i n to examine the patient and dischargehim back to [place] this evening. Name Value Range Interpretation Code Description Data Harriett rce(s) Supporting Document(s ) ID Date Data Source [id number] 01/23/2019 11:52:42 AM EDT [facility] Problem: Nutrition DeficitGoal: *Optimiz e nutritional statusDescriptionPt to progress towards meeting >80% nutrient needs with in 3-7 daysOutcome: Progressing Towards GoalOnce J-tube placed suggest initiatin g Osmolite 1.5 at 20 mL/hr, progressingtowards goal rate of 50 mL/hr (1800 kcal, 75 gm pro, 244 gm CHO, 59 gm fat, 914mL water) and 125 mL free water flush q 4 hr if no IVFRecommend NO bolus feeding through J-tube Name Value Range Interpretation Code Description Data Harriett rce(s) Supporting Document(s ) ID Date Data Source [id number] 01/23/2019 11:51:53 AM EDT [facility] NUTRITIONFollow Up NoteSubjective: Pt to lerating bolus feedings, wt stable. RN reports still waitingfor consent for con version to J-tube. Nutrition Rx: Osmolite 1.5 bolus, 1 can q 6 hr, free water 100 mL a fter bolusLabs: Glu 72 BUN 24 Creat 0.44Medications reviewed. Receiving Ques [place] Light.Skin: Redness to scab in center, L lateral ankle (per flowsheet)Butch scor e 12Trace LLE, RLE edemaWeight: 56.9 kg (stable) Nutrition Diagnosis: remains th e same (Increased protein and energy needs) Once J-tube placed suggest initiating Os molite 1.5 at 20 mL/hr, progressingtowards goal rate of 50 mL/hr (1800 kcal, 75 gm pro, 244 gm CHO, 59 gm fat, 914mL water) and 125 mL free water flush q 4 hr if no IVF Recommend NO bolus feeding through J-tube Will continue to monitor EN, Skin integr ity. Discharge Planning: Pending clinical course Candy Correa RD Name Value Range Interpretation Code Description Data Harriett rce(s) Supporting Document(s ) ID Date Data Source [id number] 01/23/2019 11:49:24 AM EDT [facility] Name Value Range Interpretation Description Data Sup porting Code Source(s) Document(s ) Vancomycin 8.8 ug/mL 10-20 Below low normal [facility] Good [Mass/volume] Taoist in Serum or Hospital Plasma --trough (NOTE)Trough levels of 15-20 ug/mL shoul d be targeted for patients withcoagulase negative Staphylococcus and MRSA pneumon ia, endocarditis,osteomyelitis, meningitis, and bacteremia; as well as patients notr esponding to lower levels. Trough levels of 10-15 ug/mL forinfections from other harriett rces (e.g. urinary tract, cellulitis) areappropriate. All patients receiving c oncomitant nephrotoxic therapiesshould have their function closely monitored regardl ess of peak ortrough levels. ID Date Data Source [id number] 01/23/2019 10:07:02 AM EDT [facility] Progress Bella Carlin68 y.o.Adm it Date: 01/10/2019Active Problems: Acute respiratory failure with hypoxia (HCC) ( 01/10/2019) Pneumonia involving right lung (01/10/2019) Hyponatremia (01/10/2019)Sub jective:Patient is comfortable on A2Zhchgrfwl items are noted in the History of Presen t Illness.Objective:Visit VitalsBP 99/55 (BP 1 Location: Left arm, BP Patient Positio n: At rest)Pulse 90Temp 97.4 F (36.3 C)Resp 16Ht 5' 2" (1.575 m)Wt 56.9 kg (125 lb 8 oz)SpO2 100%BMI 22.95 kg/m Intake and Output:Date 01/22/19 07 - 01/23/19 065 9 01/23/19 0700 - 01/24/19 0659Shift 3951-4895 6762-3101 24 Hour Total 0700-1 859 1757-2601 24 Hour TotalINTAKEI.V.(mL/kg/hr) 800 800 V olume (vancomycin (VANCOCIN) 1,000 mg in 0.9% sodium chloride 250 mL IVPB)500 500 Vo lume (piperacillin-tazobactam (ZOSYN) 3.375 g in 0.9% sodium chloride(MBP/ADV) 100 mL MBP) 300 300NG/GT 160 160 Water Flush Volume (mL) (PEG/Gastrostomy Tube) 100 100 Medication Volume (PEG/Gastrostomy Tube) 60 60Shift Total(mL/kg) 160(2.8) 160(2 .8) 800(14.1) 800(14.1)OUTPUTUrine(mL/kg/hr) 350(0.5) 450(0.7) 800(0.6) Urine Voided 450 450 Urine Output (mL) (Condom Catheter 01/16/19) 350 350Shift Total(mL/kg) 350 (6.1) 450(7.9) 800(14.1)NET -350 -290 -640 800 800Weight (kg) 56.9 56.9 56.9 56.9 56.9 56.9Medications Reviewed:Current Facility-Administered MedicationsMedicat ion Dose Route Frequency Provider Last Rate Last Dose ALPRAZolam (XANAX) tablet 0.2 5 mg 0.25 mg Oral QHS Mili Hills DO 0.25mg at 01/22/19 2110 vancomycin (VAN COCIN) 1,000 mg in 0.9% sodium chloride 250 mL IVPB 1,000 mgIntraVENous Q12H Monica Gomez MD 125 mL/hr at 01/22/19 2347 1,000 mg at1 2347 piperacillin-tazobac millan (ZOSYN) 3.375 g in 0.9% sodium chloride (MBP/ADV) 100mL MBP 3.375 g IntraVENous Q8H Monica Gomez MD 25 mL/hr at 01/23/19 71943.375 g at 01/23/19 0917 phosphorus (K PHOS NEUTRAL) 250 mg tablet 1 Tab 1 Tab Oral BID Mili Hills DO 1 Tab at 1 0916 acetylcysteine (MUCOMYST) 100 mg/mL (10 %) nebulizer solution 400 mg 4 mLNebulization BID RT Krystian Monae MD 400 mg at 01/23/19 0819 multivit-folic acid-herbal 275 (WELLESSE PLUS) oral liquid 30 mL 30 mL Per GTube DAILY Patricio Hills DO 30 mL at 01/23/19 0915 budesonide (PULMICORT) 500 mcg/2 ml nebulizer suspe nsion 500 mcg NebulizationBID RT Mili Hills DO 500 mcg at 01/23/19 0819 sodium chloride (NS) flush 5-10 mL 5-10 mL IntraVENous PRN Jalyn Romero MD 10 mL at 01/19/19 1737 cholestyramine-aspartame (QUESTRAN LIGHT ) packet 4 g 4 g Oral TID WITH MEALSMili Hills DO 4 g at 01/23/19 0916 cina calcet (SENSIPAR) tablet 60 mg 60 mg Oral DAILY Mili Hills DO 60mg at 01/23 09 lamoTRIgine (LaMICtal) tablet 50 mg 50 mg Per G Tube BID Mili Hills D O50 mg at 01/23/19 0916 pantoprazole (PROTONIX) granules for oral suspension 40 mg 40 mg Per G TubeACB Mili Hills DO 40 mg at 01/23/19 0917 valproic ac id (as sodium salt) (DEPAKENE) 250 mg/5 mL (5 mL) oral solution 750mg 750 mg Oral BID Mili Hills DO 750 mg at 01/23/19 0916 acetaminophen (TYLENOL) solution 6 50 mg 650 mg Oral Q4H PRN Mili Hills DO 650 mg at 01/21/19 2154 heparin (porc ine) injection 5,000 Units 5,000 Units SubCUTAneous Q12H Mili Hills DO 5 ,000 Units at 01/23/19 0032 influenza vaccine 2019- (65 yrs+)(PF) (FLUZONE H IGH-DOSE) injection 0.5 mL0.5 mL IntraMUSCular PRIOR TO DISCHARGE Mili Hills DO albuterol-ipratropium (DUO-NEB) 2.5 MG-0.5 MG/3 ML 3 mL Nebulization Q6 H Krystian Blanco MD 3 mL at 01/23/19 0819Physical Exam:Physical Exam:General: Alert, cooperative, no distress, appears stated age.Eyes: Conjunctivae/corneas c lear.Neck: Supple, symmetrical, trachea midline, no adenopathy, thyroid: noenlar gement/tenderness/nodules, no carotid bruit and no JVD.Lungs: Clear to auscultatio n bilaterally.Heart: Regular rate and rhythm, S1, S2 normal, no murmur, click, rub or gallop.Abdomen: Soft, non-tender. Bowel sounds normal. No masses, No orga nomegaly.Extremities: Extremities normal, atraumatic, no cyanosis or edema,Pulses: 2+ and symmetric all extremities.Skin: Skin color, texture, turgor normal. No rashes or lesionsData Review:Recent Results (from the past 24 hour(s))RENAL FUNCTION PANEL Collection Time: 01/23/19 5:20 AMResult Value Ref Range Sodium 140 136 - 145 mmo l/L Potassium 4.1 3.5 - 5.1 mmol/L Chloride 98 98 - 107 mmol/L CO2 37 (H) 21 - 32 mm ol/L Anion gap 9 (L) 10 - 20 mmol/L Glucose 72 (L) 74 - 106 mg/dL BUN 24 (H) 7 - 18 mg/dL Creatinine 0.44 (L) 0.70 - 1.30 mg/dL GFR est AA >60 >60 ml/min/1.73m2 GFR est non-AA >60 >60 ml/min/1.73m2 Calcium 10.0 8.5 - 10.1 mg/dL Phosphorus 3.3 2.5 - 4. 9 mg/dL Albumin 1.6 (L) 3.5 - 4.7 g/dLMAGNESIUM Collection Time: 01/23/19 5:20 AMResult Value Ref Range Magnesium 1.9 1.6 - 2.6 mg/dLImaging:No results found. Impression:Active Hospital Problems Diagnosis Date Noted Acute respiratory failure wi th hypoxia (HCC) 01/10/2019 Pneumonia involving right lung 01/10/2019 Hyponat remia 01/10/2019Plan:Stable kidney function and electrolytesM alkalosis, 1 dose acet azolamideContinue present medsD/c [facility] Name Value Range Interpretation Code Description Data Harriett rce(s) Supporting Document(s ) ID Date Data Source [id number] 01/23/2019 10:01:10 AM EDT [facility] I called pts sister Joyce at who is documented as HCP and hasgiven previous consent for procedures. Call s traight to voicemail. Kristy asking that she call back to [facility] endo dept dire [facility] so that if they arein agreement we can obtain consent for G to J conversion. A wait call back. Name Value Range Interpretation Code Description Data Harriett rce(s) Supporting Document(s ) ID Date Data Source [id number] 01/23/2019 07:56:43 AM EDT [facility] Progress NotePatient: Evelio Carlin Sex: male DOA: 01/10/2019Date of : 1950 Age: 68 y.o. :[id number]:Reyes Carlin is 68 y.o. male who is norverbal; appearing comfortable.Wearing O2 via NC. Pt had rectal temperature of 102.3 overnight, ID was notified, sepsis work upwas order ed. Pt was started on iv zosyn and vancomycin.Pt was seen and examined at [facility] on 01/22Pt was for discharge. . However, the patient's brother in law, Gaston Cid, who [place]currently out of the [place], called today and requested that pt be ev aluatedfor conversion of the GT to a Jtube in order to possible reduce the risk ofrecu rrent aspiration and frequent hospital readmissions.He had requested this on previous admission, however as pt respiratorystatus was compromised and as the pt was tolerating bolus feedings while in thehospital; It was decided to give t he bolus feedings a trial in the snf setting.However, the patient has been re admitted for aspiration pneumonia, and Flakita is again requesting the conver elio.Placed on BIPAP for Acute respiratory distress on Saturday. His respiratory stat usis now improved. Pt presented from [facility] to the ED, with medical history of Dysphag ia ,s/p surgical placement of peg on 11/17/18, severe intellectual disability,Chronic respiratory failure, large Hiatal Hernia, hyperparathyroid unspecified,personal h/ o pulmonary embolus, anxiety disorder, kyphosis and schizophrenia. Ptis nonverb al at baseline and is unable to provide a history.Per long-term transfer record s, at 6 AM, patient was found Hypoxic, with O2SAT of 87 % on O2 NC 4 LPM, heart rat e111 BPM, blood pressure of 105/73, respiratoryrate of 30 andaudible wheeze. Nebulizer treatment was given. He was placed on a NRM withimproved O2 SAT to 9 5 % , his respiratory rate was 30 and he was afebrile. Thenursing home transfer recor d reporting that the resident removes nasal canulaat times. In the ED pt appearing lethargic and having mild respiratory distress.CXR showing haziness at the rig ht lung base due to small effusion withatelectasis/infiltrate. No confluen t left lung process is seen. Sodium qczgi901.ABG with pH 7.46/53/66/38 O2 SA T 95 % on NC 4 LPM.The patient was admitted with encounter diagnosis of Acute Respir atory Failurewith hypercapnia and hypoxia, Pneumonia RLL likely Aspiration and Ate lectasis.Also, diag of Dysphagia s/p surgical placed peg, COPD, mentally challenged,se izure and hyperparathyroid are pertinent to this visit.The RN reporting that patient is tolerating his bolus tube feedings. CT scan chest wo contrast dated 01/10/19 dianna wed 1.8 cm nodule along the rightlateral wall of the trachea at the level of the thora cic inlet not obs on theprior study and can be due to a mucous plug. Follow up CT ch est WC dated 01/15 with finding of tracheal nodule no longervisualized.Small left pl eural effuion with underlying passive atelectatic changes similarto prior stud y.Stable small right pleural effusion. Interval improvement in the rt lower lob elung infiltrate. No new lung findings seen. CXR dated 01/17/19 limited study, no acu te infiltrate GI noted, consent still not available for procedure. 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 Pupils are equalNeck: Supple, symmetric al, no adenopathy, no carotid bruit and no JVD.Lungs: Clear to auscultation bilat erally. No Wheezing or Rhonchi. No rales.Chest wall: No Accessory muscle use.Heart: Regular rate and rhythm, no murmur, or rub.Abdomen: Positive peg i n place,soft, non-tender. Not distended. Bowel soundsnormal. No massesExtremities : Extremities normal, atraumatic, No cyanosis. No edema. No clubbingSkin: Warm and dry. No rashes or lesions. Not JaundicedLymph nodes: Cervical, supracla vicular normal.Psych: Not anxious or agitated.Neurologic: EOMs intact. No fac ial asymmetry. Nonverbal, Generalized weakness,Alert and Awake.Intake and Outp ut:Current Shift: No intake/output data recorded.Last three shifts: 01/21 1901 - 01/23 0700In: 610 [I.V.:350]Out: 1095 [Urine:1095]Lab/Data Reviewed:Recent Day s:No results for input(s): WBC, HGB, HCT, PLT, HGBEXT, HCTEXT, PLTEXT in the last7 2 hours.Recent Labs 01/22/1904NA 141 138K 4.3 4.0CL 101 98 CO2 39* 36*GLU 77 85BUN 19* 17CREA 0.40* 0.37*CA 9.7 9.8MG 2.0 1.9PHOS 2.9 2.7ALB 1.5* 1.7*No results for input(s): PH, PCO2, PO2, HCO3, FIO2 in the last 72 hours.Xr Chest Sngl VResult Date: 12/25/2018Portable chest x-ray. PRIOR EXAM: X-ray 12/18/2018 HISTORY: Pneumonia FINDINGS:The heart is normal in size. The mediastinum and pulm onary vessels areunremarkable. There is a small right pleural effusion.. A tube pr ojected overthe left upper quadrant of the abdomen..IMPRESSION: Small right pleural effusion.Ct Chest Wo ContResult Date: 01/10/2019CT CHEST WO CONT Clinical data: evaluation of pneumonia rt lung. Priors:12/18/2018 Technique: CT scan of th e chest was performed from the thoracic inletto below the diaphragm without admi nistration of intravenous contrast. Theacquisition data was reviewed in the axial, sagittal and coronal plane.Utilizing silver holloware assembler algorithm the examination w as performed to optimizeimaging quality by utilizing the lowest possible radiation dose. Findings: Thereis no evidence of pathological lymphadenopathy within the mediastinum, bilateralhilar and bilateral axillary location. There is a 1.8 cm no dule along the rightwall of the trachea at the level of the thoracic inlet (best se en on image 13ofseries 2) not seen on the prior study. This may be due to a mucou s plug. Noadditional endotracheal or endobronchial lesion is noted.Normal hea rt size.Coronary artery calcifications noted. Atherosclerotic thoracic aorta withouta neurysmal dilatation. Evaluation lung windows demonstrates patchy right lowerlobe lung infiltrate. There is associated small right pleural effusion similarto prior. There is also small left pleural effusion with underlying passiveatelectasis slightly d ecreased from the prior study. No new lung pathology isobserved. Included upper abd ominal organs: No significant pathology is observedwithin the visualized upper abdo wanda organs.IMPRESSION: Small bilateral pleural effusion. Right effusion is sim ilar toprior study. Left effusion slightly decreased in size. Patchy right lungopa cities which may be due to pneumonia similar to previous examinations. 1.8cm nodule along the right lateral wall of the trachea at the level of thethoracic inlet not ob served on the prior study and can be due to a mucous plug.Ct Chest W Cont F/uResult Da te: 01/15/2019CT CHEST W CONT F/U Clinical data: R U L NODULE NEAR TRACHEA / BLO OD VESSEL.Priors: 01/10/2019. Technique: CT scan of the chest was performed from the thoracic inlet to below the diaphragm following administration of intravenousc ontrast. The acquisition data was reviewed in the axial, sagittal and coronalplane. 100 cc of low osmolar iodinated contrast-isovue 300 was injectedintraven ously for the examination. Utilizing silver holloware assembler algorithm theexamination wa s performed to optimize imaging quality by utilizing the lowestpossible radiation d ose. Findings: There is no evidence of pathologicallymphadenopathy within the m ediastinum, bilateral hilar and bilateral axillarylocation. There is no evidence of a central endobronchial or an endotrachealmass. Previously seen nodule along the right lateral wall of the trachea nolonger visualized. This may have repr esented a mucus lung which has dislodged.Coronary artery calcifications noted. Atherosclerotic thoracic aorta withoutaneurysmal dilatation. Elevated l eft hemidiaphragm. There is a small leftpleural effusion with underlying pas sive atelectatic changes similar to priorstudy. Improved previously seen ri ght lower lobe lung infiltrate. There isassociated small right pleural effusio n similar to prior examination. No newlung pathology is observed. Included upper ab dominal organs: No significantpathology is observed within the visualized upper abd ominal organs.IMPRESSION: 1. Previously seen tracheal nodule is no longer visualized. 2.Small left pleural effusion with underlying passive atelectatic changes s imilarto prior study. Stable elevation of the left hemidiaphragm. 3. Stable small right pleural effusion. Interval improvement in the right lower lobe lunginfiltrate. No new lung findings seen.Xr Chest PortResult Date: 01/21/2019Referring Phys ician: MONICA GOMEZ Patient Name: EVELIO CARLIN THIS IS AFINAL REPORT FROM [facility], [facility] DATE OF SERVICE: 2019-01-21 22:23:43 IMAGES: 1EXAM: XY CHEST PORTABL E HISTORY: Rule out sepsis COMPARISON: Chest x-ray 01/17/19FINDINGS: The patient is ro tated and obliquely positioned There is no airspaceconsolidation. No pneumothorax. Persistent small bilateral pleural effusions Thecardiac silhouette appears grossly st able. Limited assessment secondary topositioning and partially obscured hea rt borders The bones are demineralized.Limited visualization of t he thoracic spineIMPRESSION: Persistent small bilateral pleural effusions No radiograp hicevidence of acute airspace process THIS DOCUMENT HAS BEEN ELECTRONICALLY SIGNEDJ cecelia Cole MD 01/21/2019 22:46 EST MKevin. Please call Imaging On [phone] ([phone]) with questions. This report was electronically signedby: Noel Cole MD 01/21/2019 10:48 PMXr Chest PortResult Date: 01/17/2019Portable chest x-ray. PRIOR EXAM: X-ray 01/10/2019 HISTORY: Hypoxia FINDINGS: Theheart is n ormal in size. The mediastinum and pulmonary vessels are unremarkable.There is no acu te infiltrate. The bony structures are intact.IMPRESSION: No acute pulmonary di sease. There is very limited visualization ofthe right lung due to patient position ing.Xr Chest PortResult Date: 01/10/2019XR CHEST PORT Clinical data: Sepsis Priors: 12/29/2018. Findings: Examination iscompromised due to limited inspiration and patient rotation. Heart size isunchanged. Haziness seen at the right lung base can be due to small effusionwith atelectasis/infiltrate. No confluent le ft lung process is seen. Noevidence of CHF.IMPRESSION: Limited study. Suspect right lung base process which may be due tosmall effusion with atelectasis/infilt rate.Xr Chest PortResult Date: 12/29/2018History: leukocytosis Technique : Portable chest x-ray 12/29/2018 11:01 AMComparison: 12/25/2018. FINDINGS: There is a right lower lobe infiltrate oratelectasis which is increased since p rior exam. There is poor inspiration.There is a small left pleural effusion. The exam is rotated. Evaluation of thecardiac silhouette is limited by projection. The visualized osseous structuresappear unremarkable.IMPRESSION: There is a righ t lower lobe infiltrate or atelectasis which isincreased since prior exam.Duplex Uppe r Ext Venous LeftResult Date: 12/26/2018DUPLEX UPPER EXT VENOUS LEFT Clinical Data: Arm swelling, DVT suspectedFindings: The visualized segments of the left upper ex tremity venous circulationfrom the level of the subclavian vein to the brachial vein is compressible andshows normal phasic flow without an intraluminal thrombus. In ad dition, theinternal jugular vein and the basilic vein is also patent. Extremely l imitedexam because the patient was unable to cooperate and this was done in a portabl efashion.IMPRESSION: No evidence of deep vein thrombosis within the visualized left up perextremity venous circulation. Limited study.Duplex Lower Ext Venous BilatResul t Date: 01/11/2019HISTORY: swelling to lower extremities TECHNIQUE: Bilateral lower e xtremityvenous Doppler ultrasound Using real time and color-flow Doppler as well assp ectral analysis and ultrasound examination was performed of the lowerextremities bi laterally. FINDINGS: On the right side the common femoral vein,superficial femoral vein along its entire course, as well as popliteal vein allappeared widely patent , were easily compressible, showed normal spontaneousflow. The calf veins were not visualized due to body habitus. On the left sidethe common femoral vein, superficial femoral vein along its entire course, aswell as popliteal vein all appeared widely pa tent, were easily compressible, andshowed normal spontaneous flow. The calf veins were not visualized due to bodyhabitus.IMPRESSION: Normal bilateral lower extremity venous Doppler ultrasound with noevidence of deep vein thrombosis. Medications reviewedCurrent Facility-Administered MedicationsMedicat ion Dose Route Frequency ALPRAZolam (XANAX) tablet 0.25 mg 0.25 mg Oral QHS vancom ycin (VANCOCIN) 1,000 mg in 0.9% sodium chloride 250 mL IVPB 1,000 mgIntraVENou s Q12H piperacillin-tazobactam (ZOSYN) 3.375 g in 0.9% sodium chloride (MBP/ADV) 100m L MBP 3.375 g IntraVENous Q8H phosphorus (K PHOS NEUTRAL) 250 mg tablet 1 Tab 1 Tab Oral BID acetylcysteine (MUCOMYST) 100 mg/mL (10 %) nebulizer solution 400 mg 4 mLNebulization BID RT multivit-folic acid-herbal 275 (WELLESSE PLUS) oral liq uid 30 mL 30 mL Per GTube DAILY budesonide (PULMICORT) 500 mcg/2 ml nebulizer suspe nsion 500 mcg NebulizationBID RT sodium chloride (NS) flush 5-10 mL 5-10 mL Int raVENous PRN cholestyramine-aspartame (QUESTRAN LIGHT) packet 4 g 4 g Oral TI D WITH MEALS cinacalcet (SENSIPAR) tablet 60 mg 60 mg Oral DAILY lamoTRIgine (LaMIC krystian) tablet 50 mg 50 mg Per G Tube BID pantoprazole (PROTONIX) granules for ora l suspension 40 mg 40 mg Per G TubeACB valproic acid (as sodium salt) (DEPAKENE ) 250 mg/5 mL (5 mL) oral solution 750mg 750 mg Oral BID acetaminophen (TYLENOL) cha ution 650 mg 650 mg Oral Q4H PRN heparin (porcine) injection 5,000 Units 5,000 U nits SubCUTAneous Q12H influenza vaccine 2018- (65 yrs+)(PF) (FLUZONE HIGH-DOSE ) injection 0.5 mL0.5 mL IntraMUSCular PRIOR TO DISCHARGE albuterol-ipratropium (DUO -NEB) 2.5 MG-0.5 MG/3 ML 3 mL Nebulization Q6H RTAssessment/Plan:Hospital Problems Date Reviewed: 01/20/2019 Codes Class Noted POA Acute respiratory failure with hypoxia (HCC) ICD-10-CM: J96.01ICD-9-CM: 518.81 01/10/2019 Unknown Pneumonia invo lving right lung ICD-10-CM: J18.9ICD-9-CM: 486 01/10/2019 Unknown Hyponatremia ICD- 10-CM: E87.1ICD-9-CM: 276.1 01/10/2019 YesAssessment:FeverAcute Respiratory Jeanette lure with Hypercapnia and HypoxiaPneumonia likely Aspiration RLL- resolvingAtelecta sisDysphagia s/p surgical placed pegFor conversion of GT to Jtube Lung nodule ri ght lateral wall of trachea(not visualized on f/u ct scan with contrast)Mentally chall engedSeizureHyperparathyroidLeft ankle and pedal edema- Resolved(DVT Ruled OUT)Plan :IV vancomycin and zosyn per IDFollow up cultures Continuous O2 NC incr to 4 lpm; nightly Bipap per pulmonary off antibioticsNebulizersFollow culturesRest raints with mitts PRNContinue with bolus TF for nowD/W Dr Masnfield, gi will place pt o n the endo scheduleand ordrering the Kit (consent still pending)Pulmonary f/uRedu ce ativan 0.5mg to 0.25 mg -Christofer Gonzalez 2018Time: 7:12 AM Name Value Range Interpretation Code Description Data [facility](s) Supporting Document(s ) ID Date Data Source [id number] 01/23/2019 07:33:02 AM EDT [facility] Bedside and Verbal shift change report g iven to Bernarda Parada RN (oncomingnurse) by Ronald Montoya RN (offgoing nurse) . Report included the following information SBAR, Kardex, MARand Recent Results. Name Value Range Interpretation Code Description Data [facility](s) Supporting Document(s ) ID Date Data Source [id number] 01/23/2019 07:27:08 AM EDT [facility] Progress NotePatient: Evelio Carlin Sex: male DOA: 01/10/2019Date of : 1950 Age: 68 y.o. :[id number]:Reyes Carlin is 68 y.o. male who is nonverbal; appearing comfortable.Wearing O2 NCHe was seen and examined at bedside on 01/20/19.Pt was for discharge today. Puma roland, the patient's brother in law, Dr Cid,who is currently out of the count ry, called today and requested that pt beevaluated for conversion of the GT to a Jtube in order to possible reduce therisk of recurrent aspiration and frequent hos pital readmissions.He had requested this on the previous admission, however as pt re spiratorystatus was compromised and as the pt was tolerating bolus feedings while in [facility]; It was decided to give the bolus feedings a trial in the snf setting.Puma roland, the patient has been readmitted for aspiration pneumonia, and Flakita is a gain requesting the conversion.Placed on BIPAP for Acute respiratory distress on Saturday. His respiratory statusis now improved. Pt presented from [facility] to the ED, with medical history of Dysphagia ,s/p surgical placement of peg on 11/17/18, se heller intellectual disability,Chronic respiratory failure, large Hiatal Hernia , hyperparathyroid unspecified,personal h/o pulmonary embolus, anxiety disorder, kyp hosis and schizophrenia. Ptis nonverbal at baseline and is unable to provide a hist ory.Per long-term transfer records, at 6 AM, patient was found Hypoxic, with O2 SAT of 87 % on O2 NC 4 LPM, heart ohou660 BPM, blood pressure of 105/73, respirat oryrate of 30 andaudible wheeze. Nebulizer treatment was given. He was placed on a NRM withimproved O2 SAT to 95 % , his respiratory rate was 30 and he was afeb rile. Thenursing home transfer record reporting that the resident removes yamini al canulaat times. In the ED pt appearing lethargic and having mild respiratory di stress.CXR showing haziness at the right lung base due to small effusion withatelectas is/infiltrate. No confluent left lung process is seen. Sodium deswg731.ABG wi pH 7.46/53/66/38 O2 SAT 95 % on NC 4 LPM.The patient was admitted with encoun ter diagnosis of Acute Respiratory Failurewith hypercapnia and hypoxia, Pne umonia RLL likely Aspiration and Atelectasis.Also, diag of Dysphagia s/p surgical placed peg, COPD, mentally challenged,seizure and hyperparathyroid are pertinent to this visit.The RN reporting that patient is tolerating his bolus tub e feedings. CT scan chest wo contrast dated 01/10/19 showed 1.8 cm nodule along the r ightlateral wall of the trachea at the level of the thoracic inlet not obs on theprio r study and can be due to a mucous plug. Follow up CT chest WC dated 01/15 with fi nding of tracheal nodule no longervisualized.Small left pleural effu ion with underlying passive atelectatic changes similarto prior study.Stable sma ll right pleural effusion. Interval improvement in the rt lower lobelung inf iltrate. No new lung findings seen. 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 Pupils are equalNeck: Supple, symmetrical, no adenopathy, no carotid bruit and no JVD.Back: Symmetric, No CVA tenderness.Lungs: Clear to auscultatio n bilaterally. No Wheezing or Rhonchi. No rales.Chest wall: No tenderness or defo rmity. No Accessory muscle use.Heart: Regular rate and rhythm, no murmur, or rubAbdomen: Positive peg in place soft,non-tender. Not distended. Bowel s oundsnormal. No massesExtremities: Extremities normal, atraumatic, No cyano sis. No edema. No clubbingSkin: Warm and dry. No rashes or lesions. Not Jaundice dLymph nodes: Cervical, supraclavicular normal.Psych: Not anxious or agitated.N eurologic: EOMs intact. No facial asymmetry. Generalized weakness, Alert andawake.In take and Output:Current Shift: 01/21 1901 - 01/22 0700In: 100Out: -Last three shifts : 01/20 701 - 01/21 1900In: 1360Out: 2250 [Urine:2250]Lab/Data Reviewed:Recent Day s:Recent Labs 01/20/1904WBC 9.0 7.4HGB 10.2* 11.0*HCT 31.7* 33.8*PLT 333 339Recent Labs 01/20/1905NA 138 133* 131 *K 4.0 4.3 4.4CL 98 94* 93*CO2 36* 36* 35*GLU 85 75 101BUN 17 12 11CREA 0.37* 0.32* 0. 45*CA 9.8 9.5 9.7MG 1.9 2.0 1.8PHOS 2.7 2.3* 1.8*ALB 1.7* 1.5* 1.7*No results for inp ut(s): PH, PCO2, PO2, HCO3, FIO2 in the last 72 hours.Xr Chest Sngl VResult Date: 12/14Portable chest x-ray. PRIOR EXAM: X-ray 12/18/2018 HISTORY: Pneumonia FINDINGS:The heart is normal in size. The mediastinum and pulmonary vessels areunremarkable. There is a small right pleural effusion.. A tube projected overthe left upper quadrant of the abdomen..IMPRESSION: Small right pleural effusion.Ct Chest Wo ContResult Date: CT CHEST WO CONT Clinical data: evaluation of pneumonia rt lung. Priors: 12/18/2018 Technique: CT scan of the chest was performed from the thoracic inletto belo w the diaphragm without administration of intravenous contrast. Theacquisition da ta was reviewed in the axial, sagittal and coronal plane.Utilizing silver holloware assembler alg orithm the examination was performed to optimizeimaging quality by utilizing the lowest possible radiation dose. Findings: Thereis no evidence of pathological lymp hadenopathy within the mediastinum, bilateralhilar and bilateral axillary lo cation. There is a 1.8 cm nodule along the rightwall of the trachea at the level of the thoracic inlet (best seen on image 13ofseries 2) not seen on the prior stud y. This may be due to a mucous plug. Noadditional endotracheal or endobronchi al lesion is noted.Normal heart size.Coronary artery calcifications noted. Atheroscle rotic thoracic aorta withoutaneurysmal dilatation. Evaluation lung windows demo nstrates patchy right lowerlobe lung infiltrate. There is associated small ri ght pleural effusion similarto prior. There is also small left pleural effusion with underlying passiveatelectasis slightly decreased from the prior study. No new lung pathology isobserved. Included upper abdominal organs: No significant patholo gy is observedwithin the visualized upper abdominal organs.IMPRESSION: Small bilat eral pleural effusion. Right effusion is similar toprior study. Left effusion sl ightly decreased in size. Patchy right lungopacities which may be due to pneumo freddy similar to previous examinations. 1.8cm nodule along the right lateral wall of t he trachea at the level of thethoracic inlet not observed on the prior study and can be due to a mucous plug.Ct Chest W Cont F/uResult Date: 01/15/2019CT CHEST W CONT F/U Clinical data: R U L NODULE NEAR TRACHEA / BLOOD VESSEL.Priors: 01/10/2019 . Technique: CT scan of the chest was performed from thethoracic inlet to belo w the diaphragm following administration of intravenouscontrast. The acquisition da ta was reviewed in the axial, sagittal and coronalplane. 100 cc of low osmolar iodi nated contrast-isovue 300 was injectedintravenously for the examinatio n. Utilizing silver holloware assembler algorithm theexamination was performed to optimize imaging quality by utilizing the lowestpossible radiation dose. Findings: There is no evidence of pathologicallymphadenopathy within the m ediastinum, bilateral hilar and bilateral axillarylocation. There is no evidence of a central endobronchial or an endotrachealmass. Previously seen nodule along the right lateral wall of the trachea nolonger visualized. This may have repr esented a mucus lung which has dislodged.Coronary artery calcifications noted. Atherosclerotic thoracic aorta withoutaneurysmal dilatation. Elevated l eft hemidiaphragm. There is a small leftpleural effusion with underlying pas sive atelectatic changes similar to priorstudy. Improved previously seen ri ght lower lobe lung infiltrate. There isassociated small right pleural effusio n similar to prior examination. No newlung pathology is observed. Included upper ab dominal organs: No significantpathology is observed within the visualized upper abd ominal organs.IMPRESSION: 1. Previously seen tracheal nodule is no longer visualized. 2.Small left pleural effusion with underlying passive atelectatic changes s imilarto prior study. Stable elevation of the left hemidiaphragm. 3. Stable small right pleural effusion. Interval improvement in the right lower lobe lunginfiltrate. No new lung findings seen.Xr Chest PortResult Date: 01/21/2019Referring Phys ician: MONICA GOMEZ Patient Name: EVELIO CARLIN THIS IS AFINAL REPORT FROM [facility], [facility] DATE OF SERVICE: 2019-01-21 22:23:43 IMAGES: 1EXAM: XY CHEST PORTABL E HISTORY: Rule out sepsis COMPARISON: Chest x-ray 01/17/19FINDINGS: The patient is ro tated and obliquely positioned There is no airspaceconsolidation. No pneumothorax. Persistent small bilateral pleural effusions Thecardiac silhouette appears grossly st able. Limited assessment secondary topositioning and partially obscured hea rt borders The bones are demineralized.Limited visualization of t he thoracic spineIMPRESSION: Persistent small bilateral pleural effusions No radiograp hicevidence of acute airspace process THIS DOCUMENT HAS BEEN ELECTRONICALLY SIGNEDJ cecelia Cole MD 01/21/2019 22:46 EST Ammon Please call Imaging On [phone] ([phone]) with questions. This report was electronically signedby: Noel Cole MD 01/21/2019 10:48 PMXr Chest PortResult Date: 01/17/2019Portable chest x-ray. PRIOR EXAM: X-ray 01/10/2019 HISTORY: Hypoxia FINDINGS: Theheart is n ormal in size. The mediastinum and pulmonary vessels are unremarkable.There is no acu te infiltrate. The bony structures are intact.IMPRESSION: No acute pulmonary di sease. There is very limited visualization ofthe right lung due to patient position ing.Xr Chest PortResult Date: 01/10/2019XR CHEST PORT Clinical data: Sepsis Priors: 12/29/2018. Findings: Examination iscompromised due to limited inspiration and patient rotation. Heart size isunchanged. Haziness seen at the right lung base can be due to small effusionwith atelectasis/infiltrate. No confluent le ft lung process is seen. Noevidence of CHF.IMPRESSION: Limited study. Suspect right lung base process which may be due tosmall effusion with atelectasis/infilt rate.Xr Chest PortResult Date: 12/29/2018History: leukocytosis Technique : Portable chest x-ray 12/29/2018 11:01 AMComparison: 12/25/2018. FINDINGS: There is a right lower lobe infiltrate oratelectasis which is increased since p rior exam. There is poor inspiration.There is a small left pleural effusion. The exam is rotated. Evaluation of thecardiac silhouette is limited by projection. The visualized osseous structuresappear unremarkable.IMPRESSION: There is a righ t lower lobe infiltrate or atelectasis which isincreased since prior exam.Duplex Uppe r Ext Venous LeftResult Date: 12/26/2018DUPLEX UPPER EXT VENOUS LEFT Clinical Data: Arm swelling, DVT suspectedFindings: The visualized segments of the left upper ex tremity venous circulationfrom the level of the subclavian vein to the brachial vein is compressible andshows normal phasic flow without an intraluminal thrombus. In ad dition, theinternal jugular vein and the basilic vein is also patent. Extremely l imitedexam because the patient was unable to cooperate and this was done in a portabl efashion.IMPRESSION: No evidence of deep vein thrombosis within the visualized left up perextremity venous circulation. Limited study.Duplex Lower Ext Venous BilatResul t Date: 01/11/2019HISTORY: swelling to lower extremities TECHNIQUE: Bilateral lower e xtremityvenous Doppler ultrasound Using real time and color-flow Doppler as well assp ectral analysis and ultrasound examination was performed of the lowerextremities bi laterally. FINDINGS: On the right side the common femoral vein,superficial femoral vein along its entire course, as well as popliteal vein allappeared widely patent , were easily compressible, showed normal spontaneousflow. The calf veins were not visualized due to body habitus. On the left sidethe common femoral vein, superficial femoral vein along its entire course, aswell as popliteal vein all appeared widely pa tent, were easily compressible, andshowed normal spontaneous flow. The calf veins were not visualized due to bodyhabitus.IMPRESSION: Normal bilateral lower extremity venous Doppler ultrasound with noevidence of deep vein thrombosis. Medications reviewedCurrent Facility-Administered MedicationsMedicat ion Dose Route Frequency ALPRAZolam (XANAX) tablet 0.25 mg 0.25 mg Oral QHS vancom ycin (VANCOCIN) 1,000 mg in 0.9% sodium chloride 250 mL IVPB 1,000 mgIntraVENou s Q12H piperacillin-tazobactam (ZOSYN) 3.375 g in 0.9% sodium chloride (MBP/ADV) 100m L MBP 3.375 g IntraVENous Q8H phosphorus (K PHOS NEUTRAL) 250 mg tablet 1 Tab 1 Tab Oral BID acetylcysteine (MUCOMYST) 100 mg/mL (10 %) nebulizer solution 400 mg 4 mLNebulization BID RT multivit-folic acid-herbal 275 (WELLESSE PLUS) oral liq uid 30 mL 30 mL Per GTube DAILY budesonide (PULMICORT) 500 mcg/2 ml nebulizer suspe nsion 500 mcg NebulizationBID RT sodium chloride (NS) flush 5-10 mL 5-10 mL Int raVENous PRN cholestyramine-aspartame (QUESTRAN LIGHT) packet 4 g 4 g Oral TI D WITH MEALS cinacalcet (SENSIPAR) tablet 60 mg 60 mg Oral DAILY lamoTRIgine (LaMIC krystian) tablet 50 mg 50 mg Per G Tube BID pantoprazole (PROTONIX) granules for ora l suspension 40 mg 40 mg Per G TubeACB valproic acid (as sodium salt) (DEPAKENE ) 250 mg/5 mL (5 mL) oral solution 750mg 750 mg Oral BID acetaminophen (TYLENOL) cha ution 650 mg 650 mg Oral Q4H PRN heparin (porcine) injection 5,000 Units 5,000 U nits SubCUTAneous Q12H influenza vaccine 2018- (65 yrs+)(PF) (FLUZONE HIGH-DOSE ) injection 0.5 mL0.5 mL IntraMUSCular PRIOR TO DISCHARGE albuterol-ipratropium (DUO -NEB) 2.5 MG-0.5 MG/3 ML 3 mL Nebulization Q6H RTAssessment/Plan:Hospital Problems Date Reviewed: 01/20/2019 Codes Class Noted POA Acute respiratory failure with hypoxia (HCC) ICD-10-CM: J96.01ICD-9-CM: 518.81 01/10/2019 Unknown Pneumonia invo lving right lung ICD-10-CM: J18.9ICD-9-CM: 486 01/10/2019 Unknown Hyponatremia ICD- 10-CM: E87.1ICD-9-CM: 276.1 01/10/2019 YesAssessment: Acute Respiratory Failure with Hypercapnia and HypoxiaPneumonia likely Aspiration RLLAtelectasisDysphagia s/p s urgical placed pegFor conversion of GT to Jtube Lung nodule right lateral wall of trachea(not visualized on f/u ct scan with contrast)Mentally challengedSeizureHyper parathyroidLeft ankle and pedal edema- Resolved(DVT Ruled OUT) -Plan: Continuou s O2 NC incr to 4 lpm; nightly Bipap per pulmonary off antibioticsNebulizersFollo w culturesRestraints with mitts PRNContinue with bolus TF for nowD/W fatemeh Pedersen ill place pt on the endo scheduleand ordrering the KitPulmonary f/Christofer Huang 2018Time: 12:12 AM Name Value Range Interpretation Code Description Data Harriett r[facility](s) Supporting Document(s ) ID Date Data Source [id number] 01/23/2019 07:51:32 AM EDT [facility] Name Value Range Interpretation Description Data Sup porting Code Source(s) Document(s ) Sodium 140 136-145 [facility] [Moles/volume] mmol/L [facility] in Serum or Hospital Plasma Potassium 4.1 3.5-5.1 [facility] [Moles/volume] mmol/L [facility] in Serum or Hospital Plasma Chloride 98 98-107 [facility] [Moles/volume] mmol/L [facility] in Serum or Hospital Plasma Carbon 37 21-32 Above high normal [facility] dioxide, total mmol/L [facility] [Moles/volume] Hospital in Serum or Plasma Anion gap in 9 mmol/L 10-20 Below low normal [facility] Serum or [facility] Plasma Hospital Glucose 72 mg/dL 74-106 Below low normal [facility] [Mass/volume] [facility] in Serum or Hospital Plasma Urea nitrogen 24 mg/dL 7-18 Above high normal [facility] [Mass/volume] [facility] in Serum or Hospital Plasma Creatinine 0.44 0.70-1.3 Below low normal [facility] [Mass/volume] mg/dL 0 [facility] in Serum or Hospital Plasma Glomerular >60 [facility] filtration [facility] rate/1.73 sq M Hospital predicted among blacks [Volume Rate/Area] in Serum or Plasma by Creatinine-bas ed formula (MDRD) Glomerular >60 [facility] filtration [facility] rate/1.73 sq M Hospital predicted among non-blacks [Volume Rate/Area] in Serum or Plasma by Creatinine-bas ed formula (MDRD) Calcium 10.0 8.5-10.1 [facility] [Mass/volume] mg/dL [facility] in Serum or Hospital Plasma Phosphate 3.3 2.5-4.9 [facility] [Mass/volume] mg/dL [facility] in Serum or Hospital Plasma Albumin 1.6 g/dL 3.5-4.7 Below low normal [facility] [Mass/volume] [facility] in Serum or Hospital Plasma by Bromocresol purple (BCP) dye binding method ID Date Data Source [id number] 01/23/2019 07:51:32 AM EDT [facility] Name Value Range Interpretation Description Data Sup porting Code Source(s) Document(s ) Magnesium 1.9 mg/dL 1.6-2.6 [facility] [Mass/volume] [facility] in Serum or Hospital Plasma ID Date Data Source [id number] 01/23/2019 12:05:58 AM EDT [facility] Problem: Falls - Risk ofGoal: *Absence o f FallsDescriptionDocument Samra Fall Risk and appropriate interventions in the jhon wsheet.Outcome: Progressing Towards GoalNote:Fall Risk Interventions:Mobilit y Interventions: Bed/chair exit alarmMentation Interventions: Bed/chair exit alarm, Room close to nurse's station,Adequate sleep, hydration, pain control, Door open when patient unattended,Toileting rounds, More freque nt roundingMedication Interventions: Bed/chair exit alarmElimination Interven tions: Bed/chair exit alarm, Toileting schedule/hourlyroundsHistory of Falls In terventions: Door open when patient unattended, Bed/chairexit alarmProblem: Tissue Perfusion - Cardiopulmonary, AlteredGoal: *Absence of hypoxiaOutcome: Progressing Towards Goal Name Value Range Interpretation Code Description Data Harriett rce(s) Supporting Document(s ) ID Date Data Source [id number] 01/22/2019 04:12:50 PM EDT [facility] PULMONARY/ CCM- Consult NotePatient: Ivelisse Carlin Sex: male DOA: 01/10/2019Date of : 1 Age: 68 y.o. LOS: LOS: 12 daysHPI: step down.Evelio Carlin is a 68 y.o. 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 Authoriz ing ProvidervalACYclovir (VALTREX) 1 gram tablet Take 1,000 mg by mouth two (2) ti mes a day.Yes Provider, Historicalacetaminophen (TYLENOL) 325 mg suppository Insert 650 mg into rectum every four(4) hours as needed for Fever. Yes Provider, Historicalclorazepate (TRANXENE) 3.75 mg tablet 1 Tab by Per G Tube route nightly. MaxDaily Amount: 3.75 mg. 12/30/18 Mili Hills DOmultivitamin (ONE A D AY) tablet 1 Tab by Per G Tube route daily. 12/30/18Mili Hills DOcinacalcet (SE NSIPAR) 30 mg tablet Take 2 Tabs by mouth daily. 12/30/18 Mili Hills DOlamoT RIgine (LAMICTAL) 25 mg tablet 2 Tabs by Per G Tube route two (2) times aday. 12/30/18 Mili Hills DOalbuterol-ipratropium (DUO-NEB) 2.5 mg-0.5 mg/3 ml nebu 3 mL b y Nebulizationroute every six (6) hours. Every 6 hours while awake 12/30/18 Mili Escudero DOalbuterol-ipratropium (DUO-NEB) 2.5 mg-0.5 mg/3 ml nebu 3 mL by Nebuliza tionroute every four (4) hours as needed for Cough (wheezing, shortness of breath). Mili Hills DObudesonide (PULMICORT) 0.5 mg/2 mL nbsp 2 mL by Neb ulization route two (2) timesa day. 12/30/18 Mili Hills DObacitracin 500 unit/g escobar ointment Apply 1 Packet to affected area two (2) timesa day. Indications: minor s kin infection due to bacteria, facial scabs 12/30/18Mili Hills DOcholestyramine -aspartame (QUESTRAN LIGHT) 4 gram packet Take 1 Packet by mouththree (3) times da pierre (with meals). 12/30/18 Mili Hills DOpantoprazole (PROTONIX) 40 mg granules for oral suspension 40 mg by Per G Tuberoute Daily (before breakfast). 11/28/18 Mili Escudero DOvalproate (DEPAKENE) 250 mg/5 mL syrup Take 750 mg by mouth two (2) ti mes a day.Provider, HistoricalNo Known AllergiesNo past surgical history on yoshi e.No family history on file.Social HistorySocioeconomic History Marital st atus: SINGLE Spouse name: Not on file Number of children: Not on file Years o f education: Not on file Highest education level: Not on fileTobacco Use Smoking s tatus: Never Smoker Smokeless tobacco: Never UsedSubstance and Sexual Activity Alcoh ol use: No Drug use: NoReview of SystemsPertinent items are noted in the History of Present Illness.Physical Exam:Current medications:Current Facilit y-Administered Medications: ALPRAZolam (XANAX) tablet 0.25 mg, 0.25 mg, Oral, Q HS, Mili Hills DO,0.25 mg at 01/21/19 2154 vancomycin (VANCOCIN) 1,000 mg in 0.9% sodium chloride 250 mL IVPB, 1,000 mg,IntraVENous, Q12H, Monica Gomez MD , Last Rate: 125 mL/hr at 01/22/19 1217,1,000 mg at 01/22/19 1217 piperacillin-tazob actam (ZOSYN) 3.375 g in 0.9% sodium chloride (MBP/ADV) 100mL MBP, 3.375 g, IntraVENou s, Q8H, Monica Gomez MD, Last Rate: 25 mL/hr at1 0837, 3.375 g at 0837 phosphorus (K PHOS NEUTRAL) 250 mg tablet 1 Tab, 1 Tab, Oral, BID, Eloisa Hills DO, 1 Tab at 01/22/19 0837 acetylcysteine (MUCOMYST) 100 mg/mL (10 %) nebulizer solution 400 mg, 4 mL,Nebulization, BID RT, Krystian Monae MD, 400 mg at 01/22/19 0812 multivit-folic acid-herbal 275 (WELLESSE PLUS) oral liq uid 30 mL, 30 mL, PerG Tube, DAILY, Mili Hills DO, 30 mL at 01/22/19 0900 bu desonide (PULMICORT) 500 mcg/2 ml nebulizer suspension, 500 mcg,Nebulization, BID RT , Mili Hills DO, 500 mcg at 01/22/19 0811 sodium chloride (NS) flush 5-10 m L, 5-10 mL, IntraVENous, PRN, Wes Romero MD, 10 mL at 01/19/19 1737 cholesty ramine-aspartame (QUESTRAN LIGHT) packet 4 g, 4 g, Oral, TID WITHMEALS, Cesar Hills DO, 4 g at 01/22/19 1200 cinacalcet (SENSIPAR) tablet 60 mg, 60 mg, Oral, DA PIERRE, Mili Hills DO,60 mg at 01/22/19 0836 lamoTRIgine (LaMICtal) tablet 50 mg, 50 mg, Per G Tube, BID, Mili Hills DO, 50 mg at 01/22/19 0837 hay toprazole (PROTONIX) granules for oral suspension 40 mg, 40 mg, Per GTube, ACB, Mili Hills DO, 40 mg at 01/22/19 0837 valproic acid (as sodium salt) (DEPAKEN E) 250 mg/5 mL (5 mL) oral otphcvmk796 mg, 750 mg, Oral, BID, Mili Hills DO, 750 mg at 01/22/19 0837 acetaminophen (TYLENOL) solution 650 mg, 650 mg, Oral, Q4H PRN, Mili Hills DO, 650 mg at 01/21/19 2154 heparin (porcine) inject ion 5,000 Units, 5,000 Units, SubCUTAneous, Q12H,Mili Hills DO, 5,000 Units at 01/22/19 1300 influenza vaccine 2019- (65 yrs+)(PF) (FLUZONE HIGH-DOSE) inject ion 0.5 mL,0.5 mL, IntraMUSCular, PRIOR TO DISCHARGE, Mili Hills DO albuter ol-ipratropium (DUO-NEB) 2.5 MG-0.5 MG/3 ML, 3 mL, Nebulization, Q6HRT, Krystian Monae MD, 3 mL at 01/22/19 1336DataVisit VitalsBP 125/66 (BP 1 Location: Left arm, BP Siri ent Position: At rest)Pulse 86Temp 97.6 F (36.4 C)Resp 20Ht 5' 2" (1.575 m)Wt 56. 9 kg (125 lb 8 oz)SpO2 96%BMI 22.95 kg/m Intake and Output:Date 01/21/19 0700 - 1 65801/22/19699 - 01/23/19 0659Shift 1106-2430 2618-7761 24 Hour To krystian 4743-5508 4065-9723 24 Hour TotalINTAKEI.V.(mL/kg/hr) 350(0.5) 350( 0.3) Volume (vancomycin (VANCOCIN) 1,000 mg in 0.9% sodium chloride 250 mL IVPB)250 250 Volume (piperacillin-tazobactam (ZOSYN) 3.375 g in 0.9% sodium chloride(MBP/ADV) 100 mL MBP) 100 100NG/GT 100 100 Water Flush Volume (mL) (PEG/Gastrostomy Tube) 100 100Shift Total(mL/kg) 450(7.9) 450(7.9)OUTPUTUrine(mL/kg/hr) 700(1) 295 (0.4) 995(0.7) 350 350 Urine 145 145 Urine Voided 700 700 Urine Output (mL) (Condom Catheter 01/16/19) 150 150 350 350Shift Total(mL/kg) 700(12.3) 295(5.2) 995(17.5) 350(6.1) 350(6.1)NET -700 155 -545 -350 -350Weight (kg) 56.9 56.9 56. 9 56.9 56.9 56.9Pulse OX:SpO2 Readings from Last 6 Encounters:01/22/19 96%12/30/18 9 6%11/27/18 91%09/26/15 96%@LASTSAO2(6)@PHYSICAL EXAM:General: Lethargic,responding.Head: Normocephalic, without obvious abnormality, atraumatic. Eyes: Conjunctivae clear, anicteric sclerae. Pupils are equalNose: Nares n ormal. No drainage or sinus tenderness.Throat: Lips, mucosa, and tongue normal. No ThrushNeck: Supple, symmetrical, no adenopathy, thyroid: no n tender no carotid bruit and no JVD.Back: Symmetric, No CVA tenderness.Lungs: Scattered rhonchi,Chest wall: No tenderness or deformity. No Accessory muscle use.He art: Regular rate and rhythm, no murmur, rub or gallop.Abdomen: Soft, non-tende r. Not distended. Bowel sounds normal. No massesExtremities: Extremities normal, a traumatic, No cyanosis. No edema. No clubbingSkin: Texture, turgor normal . No rashes or lesions. Not JaundicedLymph nodes: Cervical, supraclavicular normal. Psych: Good insight. Not depressed. Not anxious or agitated.Neurologic: EOMs int act. No facial asymmetry. No aphasia or slurred speech.Most recent labs:Recent L abs WBC 9.0HGB 10.2*HCT 31.7*PLT 333Recent Labs 01/22/1904 3 NA 141 138 133*K 4.3 4.0 4.3CL 101 98 94*CO2 39* 36* 36*GLU 77 85 75BUN 19* 17 12CREA 0.40* 0.37* 0.32*CA 9.7 9.8 9.5MG 2.0 1.9 2.0PHOS 2.9 2.7 2.3*ALB 1. 5* 1.7* 1.5*No results for input(s): PH, PCO2, PO2, HCO3, FIO2 in the last 72 tammy rs.ABG:No results for input(s): PH, PCO2, PO2, HCO3, FIO2 in the last 72 hours.Cul tures:No results found for: Loylap ResultsComponent Value Date/Time Culture result: NO GROWTH AFTER 11 HOURS 01/21/2019 11:30 PM Culture result: NO GROWTH AFTER 13 HOURS 01/21/2019 11:00 PM Culture result: NO GROWTH 1 DAY 01/10/2019 08:58 AM Cult ure result: NO GROWTH 5 DAYS 01/10/2019 07:55 AM Culture result: NO GROWTH 5 DAYS 12/15 07:40 AM Culture result: NO GROWTH 5 DAYS 12/29/2018 11:23 AM Culture result: NO GROWTH 5 DAYS 12/29/2018 11:00 AM Culture result: 10,000 to 50,000 COLONIES/mL KLE BSIELLA PNEUMONIAE (A)12/29/2018 11:00 AM Culture result: 50,000-100,000 COLONIES/ mL PSEUDOMONAS AERUGINOSA (A)12/29/2018 11:00 AM Culture result: (A) 12/29/2018 11:00 AM 10,000 to 50,000 COLONIES/mL STAPHYLOCOCCUS EPIDERMIDIS Culture resul t: NO GROWTH 2 DAYS 12/24/2018 09:45 AM Culture result: NO GROWTH 5 DAYS 019 12:00 PM Culture result: NO GROWTH 5 DAYS 12/23/2018 11:40 AM Culture result: NO G ROWTH 4 DAYS 12/19/2018 12:30 PM Culture result: NO GROWTH 4 DAYS 12/19/2018 12:3 0 PM Culture result: NO GROWTH 1 DAY 12/12/2018 08:04 PM Culture result: NO G ROWTH 5 DAYS 12/12/2018 07:40 PM Culture result: NO GROWTH 5 DAYS 12/12/2018 07:4 0 PM Culture result: NO GROWTH 2 DAYS 11/20/2018 09:00 AM Culture result: NO G ROWTH 5 DAYS 11/07/2018 08:10 PM Culture result: NO GROWTH 5 DAYS 11/07/2018 08:0 0 PMImages:Cta Chest W Or W Wo ContResult Date: 11/08/2018Examination: CTA Chest ? PE angiography History: Hypoxia; rule out pneumoniaversus pulmonary embolism Prior s: None Technique: Low-dose, multiplanar,helical CTA chest was perfor med with bolus IV injection from lung apices tobases. 3D-reformatted images were obt ained and reviewed on a dedicated viewingworkstation and directly supervis ed. Contrast: A total of 71 mL of Isovue-370was administered intravenously for this procedure. Findings: No evidence ofpulmonary embolism is seen. There is d ecreased size of the right hemithorax fromchronic scarring and retraction with mediastinal shift left to right.Additional area of consolidation is seen in the rig ht lower lobe and suggestssuperimposed pneumonia with subsegmental atelectasis. Subsegmental atelectasisis also noted in the left lung base, with pleural parench ymal scarring. Lowlung volumes are seen. No pneumothorax seen. Aorta normal in calib er withoutaneurysm or dissection. Mediastinum no adenopathy. Mediastinal shift is see n inthe left and right as a result of chronic changes in the right hemithorax. Heart shows no chamber enlargement or pericardial effusion. No acute fractures seen in the bony thorax, sternum, manubrium and rib cage. Multiple compressiondefor mities are seen in the mid and lower thoracic spine, with superimposedspondyloarthropa thy. Cannot exclude acute fracture.Impression: No evidence of pul monary embolism Right lower lobe pneumoniasuggested. Incidental scarring and retraction in the right hemithorax fromremote/chronic inflammatory disease and/or trauma. Bibasilar subsegmentalatelectasis. Report Electron ically Signed By: Pawel Zafar M.D. -11/08/2018 12:40 AMXr Chest PortResult D ate: 11/07/2018XR CHEST PORT CLINICAL INDICATION PROVIDED:. "sob." COMPARISON: . 09/26/2015.FINDINGS:. The pericardial/cardiac silhouette is enlarg ed in the transversedimension. There is no pulmonary vascular congestion or interst itial edema.Linear density in the left lung base and faint densities in the right mi d tolower lung likely represent atelectasis. There is no lobar consolidation oreffusi on. There is no pneumothorax.IMPRESSION:. Bilateral lower lung atelectasis. No donna dence of consolidation oreffusion.Assessment/PlanActive Problem s: Acute respiratory failure with hypoxia (HCC) (01/10/2019) Pneumonia involving r ight lung (01/10/2019) Hyponatremia (01/10/2019) Acute resp failure combined, pneumonia acute copd exacerbation pe ruled out.PLAN,Monitoring,bipap prn for resp d istressIvabx as per id,Steroid nebbipap prn and at night.NebGi follow up noted.D/w n ursing staff.Stella Hamilton MDOctober 2018The billing code submitted in [facility] with this evaluation also includes thetime to review patient's prior record s, communicate with the physician team,obtain corroborating data, and discuss the risk and benefits of the proposedmanagement plan with the patient and their family >30 mi nutes. Name Value Range Interpretation Code Description Data Harriett rce(s) Supporting Document(s ) ID Date Data Source [id number] 01/22/2019 11:39:48 AM EDT [facility] Resting comfortably. Tolerates feeds wi thout emesis diarrhea or excessresidualsvss now afebabd soft nt nd nl bsG-site well healedConsent still not available for endoscopic conversion to J-feeds.Given t he delay in obtainablitiy of consent, If pt is otherwise ready fordischarge, would c onsider discharging him and we can do the procedure as anout-pt. Name Value Range Interpretation Code Description Data Harriett rce(s) Supporting Document(s ) ID Date Data Source [id number] 01/22/2019 09:38:43 AM EDT [facility] Progress NoteEvelio Carlin68 y.o.Adm it Date: 01/10/2019Active Problems: Acute respiratory failure with hypoxia (HCC) ( 01/10/2019) Pneumonia involving right lung (01/10/2019) Hyponatremia (01/10/2019)Sub jective:Patient is comfortable on Y4Kueaochns items are noted in the History of Presen t Illness.Objective:Visit VitalsBP 125/66 (BP 1 Location: Left arm, BP Patient Positio n: At rest)Pulse 86Temp 97.6 F (36.4 C)Resp 20Ht 5' 2" (1.575 m)Wt 56.9 kg (125 lb 8 oz)SpO2 96%BMI 22.95 kg/m Intake and Output:Date 01/21/19 0700 - 01/22/19 065 9 01/22/19 0700 - 01/23/19 0659Shift 9884-2485 3737-5120 24 Hour Total 0700-1 859 9402-3795 24 Hour TotalINTAKEI.V.(mL/kg/hr) 350(0.5) 350( 0.3) Volume (vancomycin (VANCOCIN) 1,000 mg in 0.9% sodium chloride 250 mL IVPB)250 250 Volume (piperacillin-tazobactam (ZOSYN) 3.375 g in 0.9% sodium chloride(MBP/ADV) 100 mL MBP) 100 100NG/GT 100 100 Water Flush Volume (mL) (PEG/Gastrostomy Tube) 100 100Shift Total(mL/kg) 450(7.9) 450(7.9)OUTPUTUrine(mL/kg/hr) 700(1) 295 (0.4) 995(0.7) Urine 145 145 Urine Voided 700 700 Urine Output (mL) (Condom Cath eter 01/16/19) 150 150Shift Total(mL/kg) 700(12.3) 295(5.2) 995(17.5)NET -700 155 -545Weight (kg) 56.9 56.9 56.9 56.9 56.9 56.9Medications Reviewed:Current Facilit y-Administered MedicationsMedication Dose Route Frequency Provider Last Rate Last Dose ALPRAZolam (XANAX) tablet 0.25 mg 0.25 mg Oral QHS Mili Hills DO 0.25mg at 01/21/19 2154 vancomycin (VANCOCIN) 1,000 mg in 0.9% sodium chloride 250 mL IVPB 1,000 mgIntraVENous Q12H Monica Gomez MD 125 mL/hr at 01/22/19 0016 1, 000 mg at1 0016 piperacillin-tazobactam (ZOSYN) 3.375 g in 0.9% sodium chloride (MBP/ADV) 100mL MBP 3.375 g IntraVENous Q8H Monica Gomez MD 25 mL/hr at 01/22/19 46768.375 g at 01/22/19 0837 phosphorus (K PHOS NEUTRA L) 250 mg tablet 1 Tab 1 Tab Oral BID Mili Hills DO 1 Tab at 01/22/19 0 837 acetylcysteine (MUCOMYST) 100 mg/mL (10 %) nebulizer solution 400 mg 4 mLNebuli zation BID RT Krystian Mnoae MD 400 mg at 01/22/19 0812 multivit-folic acid-herba l 275 (WELLESSE PLUS) oral liquid 30 mL 30 mL Per GTube DAILY Mili Hills DO 30 mL at 01/21/19 0900 budesonide (PULMICORT) 500 mcg/2 ml nebulizer suspe nsion 500 mcg NebulizationBID RT Mili Hills DO 500 mcg at 01/22/19 0811 sodium chloride (NS) flush 5-10 mL 5-10 mL IntraVENous PRN Jalyn Romero MD 10 mL at 01/19/19 1737 cholestyramine-aspartame (QUESTRAN LIGHT ) packet 4 g 4 g Oral TID WITH MEALSMili Hills DO 4 g at 01/22/19 0836 cina calcet (SENSIPAR) tablet 60 mg 60 mg Oral DAILY Mili Hills DO 60mg at 01/22 0836 lamoTRIgine (LaMICtal) tablet 50 mg 50 mg Per G Tube BID Mili Hills D O50 mg at 01/22/19 0837 pantoprazole (PROTONIX) granules for oral suspension 40 mg 40 mg Per G TubeACB Mili Hills DO 40 mg at 01/22/19 0837 valproic ac id (as sodium salt) (DEPAKENE) 250 mg/5 mL (5 mL) oral solution 750mg 750 mg Oral BID Mili Hills DO 750 mg at 01/22/19 0837 acetaminophen (TYLENOL) solution 6 50 mg 650 mg Oral Q4H PRN Mili Hills DO 650 mg at 01/21/19 2154 heparin (porc ine) injection 5,000 Units 5,000 Units SubCUTAneous Q12H Mili Hills DO S topped at 01/22/19 0100 influenza vaccine 2019-20 (65 yrs+)(PF) (FLUZONE HIGH-DOSE ) injection 0.5 mL0.5 mL IntraMUSCular PRIOR TO DISCHARGE Mili Hills DO albute rol-ipratropium (DUO-NEB) 2.5 MG-0.5 MG/3 ML 3 mL Nebulization Q6H Krystian Blanco M D 3 mL at 01/22/19 0811Physical Exam:Physical Exam:General: Alert, coop erative, no distress, appears stated age.Eyes: Conjunctivae/corneas clear.Ne ck: Supple, symmetrical, trachea midline, no adenopathy, thyroid: noenlargement/tende rness/nodules, no carotid bruit and no JVD.Lungs: Clear to auscultation bilat erally.Heart: Regular rate and rhythm, S1, S2 normal, no murmur, click, rub or gall op.Abdomen: Soft, non-tender. Bowel sounds normal. No masses, No organomegaly.Extr emities: Extremities normal, atraumatic, no cyanosis or edema,Pulses: 2+ and symmetr ic all extremities.Skin: Skin color, texture, turgor normal. No rashes or lesionsData Review:Recent Results (from the past 24 hour(s))URINALYSIS W/ RFLX MICROSCOPIC C ollection Time: 01/21/19 11:15 PMResult Value Ref Range Color YELLOW YEL Appearance TU RBID (A) CLEAR Specific gravity 1.017 1.003 - 1.030 pH (UA) 8.0 4.6 - 8.0 Protein 30 ( A) NEG mg/dL Glucose NEGATIVE NEG mg/dL Ketone NEGATIVE NEG mg/dL Bilirubin NEG ATIVE NEG Blood NEGATIVE NEG Urobilinogen 0.2 0.2 - 1.0 EU/dL Nitrites NEGATIVE N EG Leukocyte Esterase NEGATIVE NEG WBC 0-3 0 - 5 /hpf RBC 0-3 0 - 3 /hpf Epithelial c ells 0-3 0 - 10 /hpf Bacteria NONE NONE /hpf Casts NONE NONE /lpf Crystals, urine NON E NONE /LPFCULTURE, BLOOD Collection Time: 01/21/19 11:30 PMResult Value Ref Range Special Requests: NO SPECIAL REQUESTS Culture result: NO GROWTH AFTER 6 HOURSRENAL FUN CTION PANEL Collection Time: 01/22/19 4:47 AMResult Value Ref Range Sodium 141 136 - 145 mmol/L Potassium 4.3 3.5 - 5.1 mmol/L Chloride 101 98 - 107 mmol/L CO2 39 (H) 21 - 32 mmol/L Anion gap 7 (L) 10 - 20 mmol/L Glucose 77 74 - 106 mg/dL BUN 19 (H) 7 - 18 mg/dL Creatinine 0.40 (L) 0.70 - 1.30 mg/dL GFR est AA >60 >60 ml/min/1.73m2 G FR est non-AA >60 >60 ml/min/1.73m2 Calcium 9.7 8.5 - 10.1 mg/dL Phosphorus 2.9 2.5 - 4.9 mg/dL Albumin 1.5 (L) 3.5 - 4.7 g/dLMAGNESIUM Collection Time: 01/22/19 4:47 AMResult Value Ref Range Magnesium 2.0 1.6 - 2.6 mg/dLAMMONIA Collection Time: 01/22/19 4:47 AMResult Value Ref Range Ammonia 47 (H) 11 - 32 UMOL/LImaging:Xr Chest PortResult Date: 01/21/2019Referring Physician: MONICA GOMEZ Patient Name: Abbey JOHNSONTAMMY THIS IS AFINAL REPORT FROM [facility] DATE OF SERVICE: 2019-01 22:23:43 IMAGES: 1EXAM: XY CHEST PORTABLE HISTORY: Rule out sepsis COMPARISON: [facility] x-ray 01/17/19FINDINGS: The patient is rotated and obliquely positioned There i s no airspaceconsolidation. No pneumothorax. Persistent small bilateral pleural effus ions Thecardiac silhouette appears grossly stable. Limited assessment secondary top ositioning and partially obscured heart borders The bones are demineralized.Limi mikel visualization of the thoracic spineIMPRESSION: Persistent small bilate ral pleural effusions No radiographicevidence of acute airspace process THIS DOCUMENT HAS BEEN ELECTRONICALLY SIGNEDJohn Diogo Cole MD 01/21/2019 22:46 EST M. D. Please call Imaging On [phone] with questions. This report w as electronically signedby: Noel Cole MD 01/21/2019 10:48 PMImpression:Activ e Hospital Problems Diagnosis Date Noted Acute respiratory failure with hypoxia ( HCC) 01/10/2019 Pneumonia involving right lung 01/10/2019 Hyponatremia 01/10/2019 Plan:Stable kidney function and electrolytesContinue present medsD/c jocelyn Esther Frankel MDOctober 2018 Name Value Range Interpretation Code Description Data Harriett rce(s) Supporting Document(s ) ID Date Data Source [id number] 01/22/2019 07:38:13 AM EDT [facility] Bedside and Verbal shift change report g ellynen to Jacquelyn PITTS (oncoming nurse) by Riana Vazquez RN (offgoing nurse). Report incl uded the following information SBAR, Kardex, MARand Recent Results. Name Value Range Interpretation Code Description Data [facility] rce(s) Supporting Document(s ) ID Date Data Source [id number] 01/22/2019 06:43:06 AM EDT [facility] TRANSFER - IN REPORT:Verbal report recei nathaly from Geovanna PITTS on Evelio Carlin being received from for ordered proce dureReport consisted of patient's Situation, Background, Assessment andRecommendation s(SBAR).Information from the following report(s) SBAR and MAR was reviewed with thereceiving nurse.Opportunity for questions and clarification was provided.Assessmen t completed upon patient's arrival to unit and care assumed. Name Value Range Interpretation Code Description Data Harriett rce(s) Supporting Document(s ) ID Date Data Source [id number] 01/22/2019 05:49:23 AM EDT [facility] ID Progress Note10/10/2019Subjective:Pat ient with mental retardation,recurrent aspiration pneumonia.on BIPAP at nightPt was febrile to 102.3 overnight, repeat cxr with persistent small BL pleuraleffusion Non verbal,unable to provide history.Awaiting G Tube conversion to J tube.Objective:Vi tals:Patient Vitals for the past 24 hrs: BP Temp Pulse Resp SpO2 Baogtz80/10/19 0436 101/61 98 F (36.7 C) 88 20 100 % -01/22/19 0150 - - - - 96 % -01/22/19 0145 - - - - 100 % -01/22/19 0036 98/58 97.4 F (36.3 C) 80 20 100 % -01/21/19 2109 - (!) 102.3 F (39.1 C) - - - -01/21/19 1904 115/70 99.9 F (37.7 C) (!) 101 20 95 % -01/21/19 15 12 107/70 98 F (36.7 C) (!) 106 20 94 % -01/21/19 0737 101/61 99.1 F (37.3 C) (!) 113 20 94 % -01/21/19 0607 - - - - - 56.9 kg (125 lb 8 oz)01/21/19 0600 105/63 97 F (36.1 C) (!) 108 20 95 % -Tmax: Temp (24hrs), Av.8 F (37.1 C), Min:97 F (36.1 C), Max:102.3 F(39.1 C)Physical Exam:General: Lethargic non verbalNeck: Supple, symmetrical, trachea midline, no adenopathLungs: Decrease breath sounds at bases.Heart: Regular rate and rhythm, S1, S2 normalAbdomen: Soft, non-tender . Bowel sounds normal. No masses, No organomegaly.+feeding tubeBack: No CVA tenderness.Extremities: Chronic lymphedema.Pulses: 2+ and symmetric all extremities.Skin: Skin color, texture, turgor normal. No rashes or lesionsCurrent Faci lity-Administered MedicationsMedication Dose Route Frequency ALPRAZolam (XANAX) tabl et 0.25 mg 0.25 mg Oral QHS vancomycin (VANCOCIN) 1,000 mg in 0.9% sodium chlor wade 250 mL IVPB 1,000 mgIntraVENous Q12H piperacillin-tazobactam (ZOSYN) 3.375 g in 0.9% sodium chloride (MBP/ADV) 100mL MBP 3.375 g IntraVENous Q8H phosphorus (K P HOS NEUTRAL) 250 mg tablet 1 Tab 1 Tab Oral BID acetylcysteine (MUCOMYST) 100 mg/mL (10 %) nebulizer solution 400 mg 4 mLNebulization BID RT multivit-folic ac id-herbal 275 (WELLESSE PLUS) oral liquid 30 mL 30 mL Per GTube DAILY budesonide (P ULMICORT) 500 mcg/2 ml nebulizer suspension 500 mcg NebulizationBID RT sodium chlor wade (NS) flush 5-10 mL 5-10 mL IntraVENous PRN cholestyramine-aspartame (QUESTRAN LIGHT) packet 4 g 4 g Oral TID WITH MEALS cinacalcet (SENSIPAR) tablet 60 mg 60 m g Oral DAILY lamoTRIgine (LaMICtal) tablet 50 mg 50 mg Per G Tube BID pantoprazol e (PROTONIX) granules for oral suspension 40 mg 40 mg Per G TubeACB valproic acid ( as sodium salt) (DEPAKENE) 250 mg/5 mL (5 mL) oral solution 750mg 750 mg Oral BID ac etaminophen (TYLENOL) solution 650 mg 650 mg Oral Q4H PRN heparin (porcine) injectio n 5,000 Units 5,000 Units SubCUTAneous Q12H influenza vaccine (65 yrs+)(PF) (FLUZONE HIGH-DOSE) injection 0.5 mL0.5 mL IntraMUSCular PRIOR TO DISCHARGE albute rol-ipratropium (DUO-NEB) 2.5 MG-0.5 MG/3 ML 3 mL Nebulization Q6H RTLabs:Recent Labs 01/20/1905WBC -- 9.0HGB -- 10.2*PLT -- 333BUN 17 12CREA 0.37* 0.32*Cultures:Lab ResultsComponent Value Date/Time Culture result: NO GROWTH 1 DA Y 01/10/2019 08:58 AM Culture result: NO GROWTH 5 DAYS 01/10/2019 07:55 AM Cultur e result: NO GROWTH 5 DAYS 01/10/2019 07:40 AMRadiology:Xr Chest PortResult Date: Referring Physician: MONICA GOMEZ Patient Name: EVELIO CARLIN THIS IS AFINAL REPORT FROM [facility] DATE OF SERVICE: 2019-01-21 22:23:43 IMAGES: 1EX AM: XY CHEST PORTABLE HISTORY: Rule out sepsis COMPARISON: Chest x-ray 01/17/19FI NDINGS: The patient is rotated and obliquely positioned There is no airspaceconsolida tion. No pneumothorax. Persistent small bilateral pleural effusions Thecardiac s ilhouette appears grossly stable. Limited assessment secondary topositioning and p artially obscured heart borders The bones are demineralized.Limited visualization of t he thoracic spineIMPRESSION: Persistent small bilateral pleural effusions No radiograp hicevidence of acute airspace process THIS DOCUMENT HAS BEEN ELECTRONICALLY SIGNEDJ cecelia Cole MD 01/21/2019 22:46 EST M.D. Please call Imaging On [phone] with questions. This report was electronically signedby: Noel Cole MD 01/21/2019 10:48 PMAssessment: Aspiration pneumonia BL small pleural effusion Acute hypoxic respiratory failure. Dysphagia Pleural effusion. . COPD fever Plan:1. Send blood cx x 2 set2. UA, UCx3. Then start vancom ycin and zoMariluz Gomez MDOctober [id number] AM Name Value Range Interpretation Code Description Data Harriett rce(s) Supporting Document(s ) ID Date Data Source [id number] 01/22/2019 06:45:07 AM EDT [facility] Value Range Interpretation Description Data Sup porting Code Source(s) Document(s ) Magnesium 2.0 mg/dL 1.6-2.6 [facility] - [facility] [Mass/volume] [facility] in Serum or Hospital Plasma ID Date Data Source [id number] 01/22/2019 06:45:07 [facility] Name Value Range Interpretation Description Data Sup porting Code Source(s) Document(s ) Sodium 141 136-145 [facility] [Moles/volume] mmol/L [facility] in Serum or Hospital Plasma Potassium 4.3 3.5-5.1 [facility] [Moles/volume] mmol/L [facility] in Serum or Hospital Plasma Chloride 101 98-107 [facility] [Moles/volume] mmol/L [facility] in Serum or Hospital Plasma Carbon 39 21-32 Above high normal [facility] - Good dioxide, total mmol/L [facility] [Moles/volume] Hospital in Serum or Plasma Anion gap in 7 mmol/L 10-20 Below low normal [facility] - Go od Serum or [facility] Plasma Hospital Glucose 77 mg/dL 74-106 [facility] [Mass/volume] [facility] in Serum or Hospital Plasma Urea nitrogen 19 mg/dL 7-18 Above high normal [facility] - [facility] [Mass/volume] [facility] in Serum or Hospital Plasma Creatinine 0.40 0.70-1.3 Below low normal [facility] [Mass/volume] mg/dL 0 [facility] in Serum or Hospital Plasma Glomerular >60 [facility] - Good filtration [facility] rate/1.73 sq M Hospital predicted among blacks [Volume Rate/Area] in Serum or Plasma by Creatinine-bas ed formula (MDRD) Glomerular >60 [facility] - Good filtration [facility] rate/1.73 sq M Hospital predicted among non-blacks [Volume Rate/Area] in Serum or Plasma by Creatinine-bas ed formula (MDRD) Calcium 9.7 8.5-10.1 [facility] - [facility] [Mass/volume] mg/dL [facility] in Serum or Hospital Plasma Phosphate 2.9 2.5-4.9 [facility] - [facility] [Mass/volume] mg/dL [facility] in Serum or Hospital Plasma Albumin 1.5 g/dL 3.5-4.7 Below low normal [facility] - [facility] [Mass/volume] [facility] in Serum or Hospital Plasma by Bromocresol purple (BCP) dye binding method ID Date Data Source [id number] 01/22/2019 06:22:40 AM EDT [facility] Name Value Range Interpretation Description Data Sup porting Code Source(s) Document(s ) Ammonia 47 UMOL/L 11-32 Above high normal [facility] - [facility] [Moles/volum [facility] e] in Plasma Hospital ID Date Data Source [id number] 01/22/2019 04:34:50 AM EDT [facility] Problem: Nutrition DeficitGoal: *Optimiz e nutritional statusDescriptionPt to progress towards meeting >80% nutrient needs with in 3-7 daysOutcome: Progressing Towards Goal Name Value Range Interpretation Code Description Data Harriett rce(s) Supporting Document(s ) ID Date Data Source [id number] 01/26/2019 08:51:49 AM EDT [facility] Name Value Range Interpretation Description Data Sup porting Code Source(s) Document(s ) Service comment [facility] Bacteria [facility] - Good identified in [facility] specimen by Culture ID Date Data Source [id number] 01/24/2019 09:14:48 AM EDT [facility] Name Value Range Interpretation Description Data Sup porting Code Source(s) Document(s ) Service comment [facility] Bacteria [facility] - Good identified in [facility] specimen by Culture ID Date Data Source [id number] 01/22/2019 12:05:19 AM EDT [facility] Name Value Range Interpretation Description Data Sup porting Code Source(s) Document(s ) Color of Urine YEL [facility] Appearance of CLEAR Abnormal (applies [facility] - Urine to non-numeric Good results) [facility] Specific gravity 1.017 1.003-1. [facility] - of Urine by 030 Good Refractometry [facility] pH of Urine by 8.0 4.6-8.0 [facility] - Test strip [facility] Protein 30 mg/dL NEG Abnormal (applies [facility] - [Mass/volume] in to non-numeric Good Urine by Test results) [facility] Glucose NEG [facility] - [Mass/volume] in Good Urine by Taoist Automated test [facility] strip Ketones NEG [facility] - [Presence] in Good Urine by Taoist Automated test [facility] strip Bilirubin.total NEG [facility] - [Presence] in Good Urine [facility] Hemoglobin NEG [facility] - [Presence] in Good Urine by Test [facility] Urobilinogen 0.2 0.2-1.0 [facility] - [Presence] in EU/dL Good Urine by Taoist Automated test Hospital strip Nitrite NEG [facility] - [Presence] in Good Urine by Taoist Automated test Hospital strip Leukocyte NEG [facility] - esterase Good [Presence] in Taoist Urine by Hospital Automated test strip Leukocytes 0-5 [facility] - [Presence] in Good Urine sediment Taoist by [facility] microscopy Erythrocytes 0-3 [facility] - [#/area] in Good Urine sediment Taoist by [facility] high power field Epithelial cells 0-10 [facility] - [#/area] in Good Urine sediment Taoist by [facility] high power field Bacteria NONE [facility] - [Presence] in Good Urine sediment Taoist by [facility] microscopy Casts [Presence] NONE [facility] - in Urine Good sediment by [facility] Hospital Crystals NONE [facility] - [Presence] in Good Urine sediment Taoist by [facility] microscopy ID Date Data Source [id number] 01/21/2019 11:00:53 PM EDT [facility] Pt straight cath using sterile technique . 145 cc of yellow cloudy urineobtained. UA and urine culture sent. Continue to nir amos pt. Lab at bedsidedrawing blood cultures. Will then administer anitibiotics orders per MD. Name Value Range Interpretation Code Description Data Harriett rce(s) Supporting Document(s ) ID Date Data Source [id number] 01/26/2019 08:51:40 AM EDT [facility] Name Value Range Interpretation Description Data Sup porting Code Source(s) Document(s ) Service comment [facility] Bacteria [facility] identified in [facility] specimen by Culture ID Date Data Source [id number] 01/21/2019 10:48:00 PM EDT [facility] Referring Physician: MONICA rojas Name: EVELIO AMARO IS A FINAL REPORT FROM IMAGING ON CALLDATE OF SERVI CE: 2019-01-21 22:23:43IMAGES: 1EXAM: XY CHEST PORTABLEHISTORY: Rule out sepsisCO MPARISON: Chest x-ray 01/17/19FINDINGS:The patient is rotated and obliquely positio nedThere is no airspace consolidation. No pneumothorax.Persistent small bilateral pleural effusionsThe cardiac silhouette appears grossly stable. Limited assessme ntsecondary to positioning and partially obscured heart bordersThe bones are mao neralized. Limited visualization of thethoracic spineIMPRESSION: Persistent small bilateral pleural effusionsNo radiographic evidence of acute airspace processTHIS DOCUMENT HAS BEEN ELECTRONICALLY SIGNEDJomichael Cole MD01/22/20 19 22:46 ESTM.D. Please call [facility] [employer] Consultant [phone]) withquestions.T his report was electronically signed by:Noel Cole MD 01/21/2019 10:48 PM Si gning date/time: 01/21/2019 10:48 PMSigned by: NOEL COLE Name Value Range Interpretation Code Description Data Harriett rce(s) Supporting Document(s ) ID Date Data Source [id number] 01/21/2019 10:16:36 PM EDT [facility] Pt had rectal temp 102.[address] Gera holley notified. Received order to collectUA and urine culture then start vanco and zosyn . Received order for STAT xraychest, blood cultures. Continue to monitor pt. Name Value Range Interpretation Code Description Data Harriett rce(s) Supporting Document(s ) ID Date Data Source [id number] 01/21/2019 02:17:13 PM EDT [facility] Relevant ProblemsNo relevant active prob lemsAnesthetic HistoryReview of Systems / Medical HistoryPertinent labs reviewedPu lmonaryCOPDComments: H/o resp failure Neuro/PsychPsychiatric history Cardiovas cularComments: EF 55-60%GI/Hepatic/RenalGERD: well controlled Endo/Other Other Finding sComments: S/p surgical J tube and surgical G tubePhysical ExamAirwayMallampati: IICom ments: Unable to assess CardiovascularRhythm: regularRate: abnormal DentalComments: Po or dentitionPulmonaryDecreased breath sounds AbdominalGI exam deferred Other Findings Anesthetic PlanASA: 3Anesthesia type: MACAnesthetic plan and risks discussed w ith: Family and Legal guardianPhone consent from pt's nephewPulmonary clearance in t he chart Name Value Range Interpretation Code Description Data Harriett rce(s) Supporting Document(s ) ID Date Data Source [id number] 01/21/2019 01:13:47 PM EDT [facility] - [facility] Critical Care Progress N [facility]Krystian Monae MD., F.C.C.P.Stella Hamilton MD., F.C.CGualbertoPGualberto [address] [place] [address] [place] [address] Name: Evelio JohnsoninDOB: 1950MRN: [id number]: 01/21/2019Subjective:Mr. Carlin is a 68 y.o. 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) Pneumonia Psychiatric disorder Pulmonary emboli (HCC) Schizophrenia (H CC)Allergy:No Known AllergiesVital Signs:Patient Vitals for the past 24 hrs : BP Temp Pulse Resp SpO2 Qvdnsv58/09/19 0737 101/61 99.1 F (37.3 C) (!) 113 20 94 % -01/21/19 0607 - - - - - 56.9 kg (125 lb 8 oz)01/21/19 0600 105/63 97 F (36.1 C) (!) 108 20 95 % -01/21/19 0144 - - - - 100 % -01/20/19 2043 153/80 98.5 F (36.9 C) (!) 107 22 93 % -01/20/192005 - - - - 98 % -01/20/19 1517 136/61 98.7 F (37.1 C) (!) 110 28 98 % -Pulse OX:SpO2 Readings from Last 6 Encounters:01/21/19 94%12/30/18 9 6%11/27/18 91%09/26/15 96%@LASTSAO2(6)@Intake/Output:Last shift : No intake/output data recorded.Last 3 shifts: 01/19 1901 - 01/21 0700In: 1360O ut: 1750 [Urine:1750]Intake/Output Summary (Last 24 hours) at 01/21/2019 1306Last da ta filed at 01/21/2019 0656Gross per 24 hourIntake 1360 mlOutput 1550 mlNet -190 mlHemodynamics:.@MAP.@CVPVentilator Settings:Ventilator VolumesVt Spont (ml) : 310 mlVe Observed (l/min): 6.2 l/minMode Rate Tidal Volume Pressure FiO2 PEEP 50 %Peak airway pressure:Minute ventilation: 6.2 l/minARDS network Guide lines: Lung protective strategy and Pl pressure goals N/ aless than or equal to 30Physical Exam:ON NASAL CANNULA , COMFORTABLE , RR = 24 / MT Gener al: Alert, cooperative, no distress, appears stated age. Head: N ormocephalic, without obvious abnormality, atraumatic. Eyes: Conjuncti vae/corneas clear. PERRL, EOMs intact. Nose: Nares normal. No drainage or sinus tenderness Throat: Lips, mucosa, and tongue normal Nec k: Supple, symmetrical, trachea midline, no adenopathy,thyroid: no enlargem ent/tenderness/nodules, no carotid bruit and no JVD. Lungs: DIFFUSE WHEEZI NG+1 , FEW BASAL RALES , AIR EXCHANGE ISBETTER to auscultation bilaterally. C hest Wall: No tenderness or deformity. Heart: Regular rate and rhythm, S1, S2 normal, no murmur, click,rub or NO gallop. Abdomen: Soft, non-tender. Bowel sounds normal. No masses, No organomegaly. Extremities: Extremities normal, atraumatic, no cyanosis or edema. Pulses: 4+ bilaterally Skin: Skin color, texture, turgor normal. No rashes or lesions. Neurologic: CNI I-XII intact. No focal motor or sensory deficit.DATA:Current Facility-Administer ed MedicationsMedication Dose Route Frequency phosphorus (K PHOS NEUTRAL) 250 mg tabl et 1 Tab 1 Tab Oral BID acetylcysteine (MUCOMYST) 100 mg/mL (10 %) nebulizer so lution 400 mg 4 mLNebulization BID RT multivit-folic acid-herbal 275 (WELLESSE PLUS) oral liquid 30 mL 30 mL Per GTube DAILY budesonide (PULMICORT) 500 mcg/2 ml nebulizer suspension 500 mcg NebulizationBID RT sodium chloride (NS) flush 5-10 mL 5-10 mL IntraVENous PRN cholestyramine-aspartame (QUESTRAN LIGHT ) packet 4 g 4 g Oral TID WITH MEALS cinacalcet (SENSIPAR) tablet 60 mg 60 m g Oral DAILY lamoTRIgine (LaMICtal) tablet 50 mg 50 mg Per G Tube BID pantoprazol e (PROTONIX) granules for oral suspension 40 mg 40 mg Per G TubeACB valproic acid ( as sodium salt) (DEPAKENE) 250 mg/5 mL (5 mL) oral solution 750mg 750 mg Oral BID AL PRAZolam (XANAX) tablet 0.5 mg 0.5 mg Per G Tube QHS acetaminophen (TYLENOL) soluti on 650 mg 650 mg Oral Q4H PRN heparin (porcine) injection 5,000 Units 5,000 U nits SubCUTAneous Q12H influenza vaccine 2018- (65 yrs+)(PF) (FLUZONE HIGH-DOSE ) injection 0.5 mL0.5 mL IntraMUSCular PRIOR TO DISCHARGE albuterol-ipratropium (DUO -NEB) 2.5 MG-0.5 MG/3 ML 3 mL Nebulization Q6H RTTelemetry: [x]Sinus []A-flutter [] Paced []A-fib []Multiple PVC'sLabs:Recent Results (from the past 24 hour(s))RENAL FUNCTION PANEL Collection Time: 01/21/19 4:23 AMResult Value Ref Range Sodium 138 136 - 145 mmol/L Potassium 4.0 3.5 - 5.1 mmol/L Chloride 98 98 - 107 mmol/L CO2 3 6 (H) 21 - 32 mmol/L Anion gap 8 (L) 10 - 20 mmol/L Glucose 85 74 - 106 mg/dL BUN 17 7 - 18 mg/dL Creatinine 0.37 (L) 0.70 - 1.30 mg/dL GFR est AA >60 >60 ml/min/1.73m2 G FR est non-AA >60 >60 ml/min/1.73m2 Calcium 9.8 8.5 - 10.1 mg/dL Phosphorus 2.7 2.5 - 4.9 mg/dL Albumin 1.7 (L) 3.5 - 4.7 g/dLMAGNESIUM Collection Time: 01/21/19 4:23 AMResult Value Ref Range Magnesium 1.9 1.6 - 2.6 mg/dLABG:No results for input( s): PH, PCO2, PO2, HCO3, FIO2 in the last 72 hours.Recent Glucose Results:Lab Results Component Value Date/Time GLU 85 01/21/2019 04:23 AMCULTURES:All Micro Results Proce dure Component Value Units Date/Time CULTURE, BLOOD [[id number]] Collected: 01/10/19 0 755 Order Status: Completed Specimen: Blood Updated: 01/15/19837 Special Request s: NO SPECIAL REQUESTS Culture result: NO GROWTH 5 DAYS CULTURE, BLOOD [[id number]] Collected: 01/10/19 0740 Order Status: Completed Specimen: Blood Updated: 07/0138 Special Requests: NO SPECIAL REQUESTS Culture result: NO GROWTH 5 DA YS CULTURE, URINE [[id number]] Collected: 01/10/19 0858 Order Status: Completed S pecimen: Urine from Clean catch Updated: Special Requests: NO SPECI AL REQUESTS Culture result: NO GROWTH 1 DAY CULTURE, BLOOD [[id number]] Collected: 0 01/10/19 0800 Order Status: Canceled Specimen: BloodXR Results (most recent) :Results from Hospital Encounter encounter on 01/10/19XR CHEST PORT Narrative Portable chest x-ray.PRIOR EXAM: X-ray 01/10/2019HISTORY: HypoxiaFINDINGS:The he art is normal in size. The mediastinum and pulmonary vessels areunremarkable.There is no acute infiltrate.The bony structures are intact. Impression IMPRESSION:No acu te pulmonary disease. There is very limited visualization of the rightlung due to pa tient positioning.CT Results (most recent):Results from Hospital Encounter encounter on 01/10/19CT CHEST W CONT F/U Narrative CT CHEST W CONT F/UClinical da ta: R U L NODULE NEAR TRACHEA / BLOOD VESSEL.Priors: 01/10/2019.Technique: CT s can of the chest was performed from the thoracic inlet to belowthe diaphragm fol lowing administration of intravenous contrast. The acquisitiondata was revie wed in the axial, sagittal and coronal plane. 100 cc of lowosmolar iodinated contrast- isovue 300 was injected intravenously for theexamination. Utilizing silver holloware assembler a lgorithm the examination was performed tooptimize imaging quality by utilizing the lowest possible radiation dose.Findings: There is no evidence of pathological lym phadenopathy within themediastinum, bilateral hilar and bilateral axillary location. There is noevidence of a central endobronchial or an endotracheal mass. P reviously seennodule along the right lateral wall of the trachea no longer visualized . Thismay have represented a mucus lung which has dislodged. Coronary arterycal cifications noted. Atherosclerotic thoracic aorta without aneurysmaldilatation.[place] mikel left hemidiaphragm. There is a small left pleural effusion withunderlying pas sive atelectatic changes similar to prior study. Improvedpreviously seen right lo wer lobe lung infiltrate. There is associated smallright pleural effusion s imilar to prior examination. No new lung pathology isobserved.Included upper abdo wanda organs: No significant pathology is observed within thevisualized upper abdo wanda organs. Impression IMPRESSION:1. Previously seen tracheal nodule is no lo nger visualized.2. Small left pleural effusion with underlying passive atelect atic changessimilar to prior study. Stable elevation of the left hemidiaphragm.3. Stable small right pleural effusion. Interval improvement in the rightlower l obe lung infiltrate. No new lung findings seen.Images:@IMAGESENCORD@ HELP TEXTThis SmartLink requires a parameter for processing. Parameters are variableswhic h can be added to the original SmartLink name. This allows you to requestspecific information by giving the SmartLink precise direction.The BSHSILASTIMGCAT SmartLink accepts (as a parameter) an external procedure IDor an anatomical region. Typ ically, this external ID would be the CPT code.You can also request the number of procedures to be displayed by this SmartLink.To indicate the number, type t he procedure ID or anatomical regions followed bya colon and then the number o f procedures. To display all occurences for thatparticular procedure ID/anatomical r egions, type an asterisk in place of thenumber. To obtain only the last occur ence, type the procedure ID/anatomicalregions without the colon, number, or asterisk.T his SmartLink can display other procedures in the same procedure category if aparamete r is set.The SmartLink will display the last x cases of the procedure or anatomicalre gions you entered.Example: .BSHSILASTIMGCAT[[id number] example wo uld display results for the last three orders with an externalprocedure ID of [id number] he patient is: [x] acutely ill Risk of deterioration: [x] moderate [] criticall y ill [] highActive Problems: Acute respiratory failure with hypoxia (HCC) ( 01/10/2019) Pneumonia involving right lung (01/10/2019) Hyponatremia (01/10/2019)IMP RESSION:1. ACUTE HYPERCAPNIC AND HYPOXIC RESPIRATORY FAILURE2. ATELECTASIS R U L RESOLVED3. PNEUMONIA R L L AND L L L RESOLVED4. AC COPD BETTER 5. MENTAL RETARDATION6. CAT SCAN CHEST WITH I V CONTRAST RULED OUT LUNG NODULE7. DYSPH AGIA8. EPILEPSY 9. METABOLIC ENCEPHALOPATHY [id number]. RT .PLEURAL EFFUSION RES OLVEDPLAN : OFF I V ABTIBIOTUCS PER I DDUO NEB Q 4 H BIPAP FOR RESPIRATORY . DISTRESS BUDESONIDE 500 MCG VIA MINI NEB Q 1 2 H MUCOMYST VIA MINI NEB BID PROGNOSIS IS GUARDED .PATIENT IS AWAITING CONSENT FOR J TUBE My asses sment, plan of care, findings, medications, side effects etc werediscussed with:[x]n tho []PT/OT[x]respiratory therapy [][]family []Critical Care Provided 35 minutes non procedure based.Krystian Monae MD F.C.C.P. Name Value Range Interpretation Code Description Data [facility] rce(s) Supporting Document(s ) ID Date Data Source [id number] 01/21/2019 11:41:59 AM EDT [facility] ID Progress Note01/21/2019Subjective:Siri ent with mental retardation,recurrent aspiration pneumonia.on BIPAP at nightAf ebrileNon verbal,unable to provide history.Awaiting G Tube conversion to J tube.Objective:Vitals:Patient Vitals for the past 24 hrs: BP Temp Pulse Resp [facility]61 99.1 F (37.3 C) (!) 113 20 94 % -01/21/19 0607 - - - - - 56. 9 kg (125 lb 8 oz)01/21/19 0600 105/63 97 F (36.1 C) (!) 108 20 95 % -01/21/19 0144 - - - - 100 % -01/20/19 2043 153/80 98.5 F (36.9 C) (!) 107 22 93 % -01/20/192005 - - - - 98 % -01/20/19 1517 136/61 98.7 F (37.1 C) (!) 110 28 98 % -Tmax: Temp ( 24hrs), Av.3 F (36.8 C), Min:97 F (36.1 C), Max:99.1 F(37.3 C)Physical Exam:General: Lethargic non verbalNeck: Supple, symmetrical, trachea midline, no adenopathLungs: Decrease breath sounds at bases.Heart: Regular rate and rhythm, S 1, S2 normalAbdomen: Soft, non-tender. Bowel sounds normal. No masses, No orga nomegaly.+feeding tubeBack: No CVA tenderness.Extremities: Chronic lymphede ma.Pulses: 2+ and symmetric all extremities.Skin: Skin color, texture, t urgor normal. No rashes or lesionsCurrent Facility-Administered MedicationsMedicat ion Dose Route Frequency phosphorus (K PHOS NEUTRAL) 250 mg tablet 1 Tab 1 Tab Oral BID acetylcysteine (MUCOMYST) 100 mg/mL (10 %) nebulizer solution 400 mg 4 mLNebuli zation BID RT multivit-folic acid- herbal 275 (WELLESSE PLUS) oral liquid 30 mL 30 mL Per GTube DAILY budesonide (PULMICORT) 500 mcg/2 ml nebulizer suspension 500 mcg N ebulizationBID RT sodium chloride (NS) flush 5-10 mL 5-10 mL IntraVENous PRN choles tyramine-aspartame (QUESTRAN LIGHT) packet 4 g 4 g Oral TID WITH MEALS cinacalcet ( SENSIPAR) tablet 60 mg 60 mg Oral DAILY lamoTRIgine (LaMICtal) tablet 50 mg 50 mg Per G Tube BID pantoprazole (PROTONIX) granules for oral suspension 40 mg 40 m g Per G TubeACB valproic acid (as sodium salt) (DEPAKENE) 250 mg/5 mL (5 mL) oral solution 750mg 750 mg Oral BID ALPRAZolam (XANAX) tablet 0.5 mg 0.5 mg Per G Tube QHS acetaminophen (TYLENOL) solution 650 mg 650 mg Oral Q4H PRN heparin (porcine) injection 5,000 Units 5,000 Units SubCUTAneous Q12H influenza vaccine 201 9-20 (65 yrs+)(PF) (FLUZONE HIGH-DOSE) injection 0.5 mL0.5 mL IntraMUSCular YUAN OR TO DISCHARGE albuterol-ipratropium (DUO-NEB) 2.5 MG-0.5 MG/3 ML 3 mL Nebul ization Q6H RTLabs:Recent Labs 01/20/1905WBC -- 9.0 7. 4HGB -- 10.2* 11.0*PLT -- 333 339BUN 17 12 11CREA 0.37* 0.32* 0.45*Cultures:Lab ResultsComponent Value Date/Time Culture result: NO GROWTH 1 DAY 01/10/2019 08:58 AM Culture result: NO GROWTH 5 DAYS 01/10/2019 07:55 AM Culture result: NO G ROWTH 5 DAYS 01/10/2019 07:40 AMRadiology:No results found.Assessment: Aspiration pn eumonia s/p treatment Acute hypoxic respiratory failure. Dysphagia Pleural effusion. . COPD Plan:1. Continue current managmentMahlet MD [phone] AM Name Value Range Interpretation Code Description Data Harriett rce(s) Supporting Document(s ) ID Date Data Source [id number] 01/21/2019 10:35:35 AM EDT [facility] Pt is non-verbalAppears comfortableExam: VSSAbd: soft, NTND, (+) PEGA/P recurrent aspirationFor conversion of PEG to J tub e.Will tentatively plan for tomorrow pending consent from family Name Value Range Interpretation Code Description Data Harriett rce(s) Supporting Document(s ) ID Date Data Source [id number] 01/21/2019 09:31:31 AM EDT [facility] Progress NoteEmanblanka Carlin68 y.o.Adm it Date: 9/28/2019Active Problems: Acute respiratory failure with hypoxia (HCC) ( 01/10/2019) Pneumonia involving right lung (01/10/2019) Hyponatremia (01/10/2019)Sub jective:Patient is comfortable on R0Oieearoti items are noted in the History of Presen t Illness.Objective:Visit VitalsBP 101/61 (BP 1 Location: Left arm, BP Patient Positio n: At rest)Pulse (!) 113Temp 99.1 F (37.3 C)Resp 20Ht 5' 2" (1.575 m)Wt 56.9 kg (1 25 lb 8 oz)SpO2 94%BMI 22.95 kg/m Intake and Output:Date 01/20/19 0700 - 01/21/19 065 9 01/21/19 07 - 01/22/19 0659Shift 7710-0565 2728-4205 24 Hour Total 0700-1 859 7818-0164 24 Hour TotalINTAKENG/GT 939 182 1858 Water Flush Volume (mL) (PEG/G astrostomy Tube) 200 200 400 Intake (ml) (PEG/Gastrostomy Tube) 480 480 960Shift Total(mL/kg) 680(12) 680(11.9) 1360(23.9)OUTPUTUrine(mL/kg/hr) 650(1) 9 00(1.3) 1550(1.1) Urine Voided 650 650 Urine Output (mL) (Condom Catheter 01/16) 900 900Shift Total(mL/kg) 650(11.5) 900(15.8) 1550(27.2)NET 30 -220 -190Weig ht (kg) 56.5 56.9 56.9 56.9 56.9 56.9Medications Reviewed:Current Facilit y-Administered MedicationsMedication Dose Route Frequency Provider Last Rate Last Dose phosphorus (K PHOS NEUTRAL) 250 mg tablet 1 Tab 1 Tab Oral BID Maryann Hills DO 1 Tab at 01/20/19 1705 acetylcysteine (MUCOMYST) 100 mg/mL (10 %) nebulizer solution 400 mg 4 mLNebulization BID RT Krystian Monae MD 400 mg at 01/21/19 0750 multivit-folic acid-herbal 275 (WELLESSE PLUS) oral liq uid 30 mL 30 mL Per GTube DAILY Mili Hills DO 30 mL at 01/20/19 0845 bu desonide (PULMICORT) 500 mcg/2 ml nebulizer suspension 500 mcg NebulizationBID RT N Mili buchanan DO 500 mcg at 01/21/19 0750 sodium chloride (NS) flush 5-10 mL 5-1 0 mL IntraVENous PRN Jalyn Romero MD 10 mL at 01/19/19 1737 cholestyramine-a spartame (QUESTRAN LIGHT) packet 4 g 4 g Oral TID WITH MEALSMili Hills DO 4 g at 01/20/19 1705 cinacalcet (SENSIPAR) tablet 60 mg 60 mg Oral DAILY Eloisa Hills DO 60mg at 01/20/19 0842 lamoTRIgine (LaMICtal) tablet 50 mg 50 mg Per G Tube BID Mili Hills DO50 mg at 01/20/19 1705 pantoprazole (PROTONIX) g ranules for oral suspension 40 mg 40 mg Per G TubeACB Mili Hills DO 40 mg at 01/20/19 0842 valproic acid (as sodium salt) (DEPAKENE) 250 mg/5 mL (5 mL) oral solution 750mg 750 mg Oral BID Mili Hills DO 750 mg at 01/20/19 1705 A LPRAZolam (XANAX) tablet 0.5 mg 0.5 mg Per G Tube QHS Mili Hills DO0.5 mg at 2204 acetaminophen (TYLENOL) solution 650 mg 650 mg Oral Q4H PRN Maryann Hills DO heparin (porcine) injection 5,000 Units 5,000 Units SubCUTAneous Q12H Mili Vergara DO 5,000 Units at 01/21/19 0027 influenza vaccine 2019-20 (65 yrs+ )(PF) (FLUZONE HIGH-DOSE) injection 0.5 mL0.5 mL IntraMUSCular PRIOR TO DISCHARGE Mili Escudero DO albuterol-ipratropium (DUO-NEB) 2.5 MG-0.5 MG/3 ML 3 mL Nebul ization Q6H Krystian Blanco MD 3 mL at 01/21/19 0750Physical Exam:Physical Exam :General: Alert, cooperative, no distress, appears stated age.Eyes: Conjunctivae/c orneas clear.Neck: Supple, symmetrical, trachea midline, no adenopathy, thyroid: noenlargement/tenderness/nodules, no carotid bruit and no JVD.Lungs: Clear to auscu ltation bilaterally.Heart: Regular rate and rhythm, S1, S2 normal, no murmur, click, rub or gallop.Abdomen: Soft, non-tender. Bowel sounds normal. No masses, No orga nomegaly.Extremities: Extremities normal, atraumatic, no cyanosis or edema,Pulses: 2+ and symmetric all extremities.Skin: Skin color, texture, turgor normal. No rashes or lesionsData Review:Recent Results (from the past 24 hour(s))RENAL FUNCTION PANEL Collection Time: 01/21/19 4:23 AMResult Value Ref Range Sodium 138 136 - 145 mmo l/L Potassium 4.0 3.5 - 5.1 mmol/L Chloride 98 98 - 107 mmol/L CO2 36 (H) 21 - 32 mm ol/L Anion gap 8 (L) 10 - 20 mmol/L Glucose 85 74 - 106 mg/dL BUN 17 7 - 18 mg/dL Cr eatinine 0.37 (L) 0.70 - 1.30 mg/dL GFR est AA >60 >60 ml/min/1.73m2 GFR est non-AA >60 >60 ml/min/1.73m2 Calcium 9.8 8.5 - 10.1 mg/dL Phosphorus 2.7 2.5 - 4.9 mg/dL Alb umin 1.7 (L) 3.5 - 4.7 g/dLMAGNESIUM Collection Time: 01/21/19 4:23 AMResult Value Ref Range Magnesium 1.9 1.6 - 2.6 mg/dLImaging:No results found.Impression :Active Hospital Problems Diagnosis Date Noted Acute respiratory failure with hy poxia (HCC) 01/10/2019 Pneumonia involving right lung 01/10/2019 Hyponatremia 12/15Plan:Stable kidney function and electrolytesContinue present medsD/c jocelyn Frankel MDOctober 2018 Name Value Range Interpretation Code Description Data Harriett rce(s) Supporting Document(s ) ID Date Data Source [id number] 01/21/2019 08:34:10 AM EDT [facility] Progress NotePatient: Evelio Carlin Sex: male DOA: 01/10/2019Date of : 1950 Age: 68 y.o. :[id number]:Reyes Carlin is 68 y.o. male .who is Nonverbal; appearing comfortable.Wearing O2 NCHe was seen and examined at bedside on 01/20/19.Pt was for discharge today. Puma roland, the patient's brother in law, Dr Cid,who is currently out of the count ry, called today and requested that pt beevaluated for conversion of the GT to a Jtube in order to possible reduce therisk of recurrent aspiration and frequent hos pital readmissions.He had requested this on the previous admission, however as pt re spiratorystatus was compromised and as the pt was tolerating bolus feedings while in [facility]; It was decided to give the bolus feedings a trial in the snf setting.Puma roland, the patient has been readmitted for aspiration pneumonia, and Flakita is a gain requesting the conversion.Placed on BIPAP for Acute respiratory distress on Saturday. His respiratory statusis now improved.Pt presented from [facility] to the ED, with medical history of Dysphagia ,s/p surgical placement of peg on 11/17/18, se arron intellectual disability,Chronic respiratory failure, large Hiatal Hernia , hyperparathyroid unspecified,personal h/o pulmonary embolus, anxiety disorder, kyp hosis and schizophrenia. Ptis nonverbal at baseline and is unable to provide a hist ory.Per long-term transfer records, at 6 AM, patient was found Hypoxic, with O2 SAT of 87 % on O2 NC 4 LPM, heart wvmi414 BPM, blood pressure of 105/73, respirat oryrate of 30 andaudible wheeze. Nebulizer treatment was given. He was placed on a NRM withimproved O2 SAT to 95 % , his respiratory rate was 30 and he was afeb rile. Thenursing home transfer record reporting that the resident removes yamini al canulaat times. In the ED pt appearing lethargic and having mild respiratory di stress.CXR showing haziness at the right lung base due to small effusion withatelectas is/infiltrate. No confluent left lung process is seen. Sodium mgayu113.ABG wi th pH 7.46/53/66/38 O2 SAT 95 % on NC 4 LPM.The patient was admitted with encoun ter diagnosis of Acute Respiratory Failurewith hypercapnia and hypoxia, Pne umonia RLL likely Aspiration and Atelectasis.Also, diag of Dysphagia s/p surgical placed peg, COPD, mentally challenged,seizure and hyperparathyroid are pertinent to this visit.The RN reporting that patient is tolerating his bolus tub e feedings. CT scan chest wo contrast dated 01/10/19 showed 1.8 cm nodule along the r ightlateral wall of the trachea at the level of the thoracic inlet not obs on theprio r study and can be due to a mucous plug. Follow up CT chest WC dated 01/15 with fi nding of tracheal nodule no longervisualized.Small left pleural effu ion with underlying passive atelectatic changes similarto prior study.Stable sma ll right pleural effusion. Interval improvement in the rt lower lobelung inf iltrate. No new lung findings seen. CXR dated 01/17/19 limited study, no acute i nfiltrate. 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 Pupils are equalNeck: Supple, symmetrical, no adenopathy, no carotid bruit and no JVD.Back: Symmetric, No CVA tenderness.Lungs: Clear to aus cultation bilaterally. No Wheezing or Rhonchi. No rales.Chest wall: No Acces augusto muscle use.Heart: Regular rate and rhythm, no murmur, or rub.Abdomen: P ositive peg, soft, non-tender. Not distended. Bowel sounds normal.Extremities: Extrem ities normal, atraumatic, No cyanosis. No edema. No clubbingSkin: Warm and dry . No rashes or lesions. Not JaundicedLymph nodes: Cervical, supraclavicular normal. Psych: Not anxious or agitated.Neurologic: EOMs intact. No facial asymmetry. Nonver bal, Alert and AwakeIntake and Output:Current Shift: No intake/output data recorded.Last three shifts: 01/19 701 - 01/20 1900In: 1960Out: 1250 [Urine:125 0]Lab/Data Reviewed:Recent Days:Recent Labs 01/20/1904WB C 9.0 7.4 7.6HGB 10.2* 11.0* 11.5*HCT 31.7* 33.8* 35.4*PLT 333 339 340Recent Labs 1 01/20/1904NA 133* 131* 131*K 4.3 4.4 4.4CL 94* 93* 92*CO2 36* 35* 34*GLU 75 101 85BUN 12 11 11CREA 0.32* 0.45* 0.37*CA 9.5 9.7 9.8MG 2.0 1. 8 2.0PHOS 2.3* 1.8* 2.0*ALB 1.5* 1.7* 1.9*No results for input(s): PH, PCO2, PO2, HCO 3, FIO2 in the last 72 hours.Xr Chest Sngl VResult Date: 12/25/2018Portable chest x- ray. PRIOR EXAM: X-ray 12/18/2018 HISTORY: Pneumonia FINDINGS:The heart is normal i n size. The mediastinum and pulmonary vessels areunremarkable. There is a small right pleural effusion.. A tube projected overthe left upper quadrant of the abdomen..IMPR ESSION: Small right pleural effusion.Ct Chest Wo ContResult Date: 01/10/2019CT CHEST WO CONT Clinical data: evaluation of pneumonia rt lung. Priors:12/18/2018 Technique: CT s can of the chest was performed from the thoracic inletto below the diaphragm wit hout administration of intravenous contrast. Theacquisition data was reviewed in the axial, sagittal and coronal plane.Utilizing silver holloware assembler algorithm the examination w as performed to optimizeimaging quality by utilizing the lowest possible radiation dose. Findings: Thereis no evidence of pathological lymphadenopathy within the mediastinum, bilateralhilar and bilateral axillary location. There is a 1.8 cm no dule along the rightwall of the trachea at the level of the thoracic inlet (best se en on image 13ofseries 2) not seen on the prior study. This may be due to a mucou s plug. Noadditional endotracheal or endobronchial lesion is noted.Normal hea rt size.Coronary artery calcifications noted. Atherosclerotic thoracic aorta withouta neurysmal dilatation. Evaluation lung windows demonstrates patchy right lowerlobe lung infiltrate. There is associated small right pleural effusion similarto prior. There is also small left pleural effusion with underlying passiveatelectasis slightly d ecreased from the prior study. No new lung pathology isobserved. Included upper abd ominal organs: No significant pathology is observedwithin the visualized upper abdo wanda organs.IMPRESSION: Small bilateral pleural effusion. Right effusion is sim ilar toprior study. Left effusion slightly decreased in size. Patchy right lungopa cities which may be due to pneumonia similar to previous examinations. 1.8cm nodule along the right lateral wall of the trachea at the level of thethoracic inlet not ob served on the prior study and can be due to a mucous plug.Ct Chest W Cont F/uResult Da te: 01/15/2019CT CHEST W CONT F/U Clinical data: R U L NODULE NEAR TRACHEA / BLO OD VESSEL.Priors: 01/10/2019. Technique: CT scan of the chest was performed from the thoracic inlet to below the diaphragm following administration of intravenousc ontrast. The acquisition data was reviewed in the axial, sagittal and coronalplane. 100 cc of low osmolar iodinated contrast-isovue 300 was injectedintraven ously for the examination. Utilizing silver holloware assembler algorithm theexamination wa s performed to optimize imaging quality by utilizing the lowestpossible radiation d ose. Findings: There is no evidence of pathologicallymphadenopathy within the m ediastinum, bilateral hilar and bilateral axillarylocation. There is no evidence of a central endobronchial or an endotrachealmass. Previously seen nodule along the right lateral wall of the trachea nolonger visualized. This may have repr esented a mucus lung which has dislodged.Coronary artery calcifications noted. Atherosclerotic thoracic aorta withoutaneurysmal dilatation. Elevated l eft hemidiaphragm. There is a small leftpleural effusion with underlying pas sive atelectatic changes similar to priorstudy. Improved previously seen ri ght lower lobe lung infiltrate. There isassociated small right pleural effusio n similar to prior examination. No newlung pathology is observed. Included upper ab dominal organs: No significantpathology is observed within the visualized upper abd ominal organs.IMPRESSION: 1. Previously seen tracheal nodule is no longer visualized. 2.Small left pleural effusion with underlying passive atelectatic changes s imilarto prior study. Stable elevation of the left hemidiaphragm. 3. Stable small right pleural effusion. Interval improvement in the right lower lobe lunginfiltrate. No new lung findings seen.Xr Chest PortResult Date: 01/17/2019Portable chest x-ray. PRIOR EXAM: X-ray 01/10/2019 HISTORY: Hypoxia FINDINGS: Theheart is normal in size. The mediastinum and pulmonary vessels are unremarkable.There is no acute infil trate. The bony structures are intact.IMPRESSION: No acute pulmonary di sease. There is very limited visualization ofthe right lung due to patient position ing.Xr Chest PortResult Date: 01/10/2019XR CHEST PORT Clinical data: Sepsis Priors: 12/29/2018. Findings: Examination iscompromised due to limited inspiration and patient rotation. Heart size isunchanged. Haziness seen at the right lung base can be due to small effusionwith atelectasis/infiltrate. No confluent le ft lung process is seen. Noevidence of CHF.IMPRESSION: Limited study. Suspect right lung base process which may be due tosmall effusion with atelectasis/infilt rate.Xr Chest PortResult Date: 12/29/2018History: leukocytosis Technique : Portable chest x-ray 12/29/2018 11:01 AMComparison: 12/25/2018. FINDINGS: There is a right lower lobe infiltrate oratelectasis which is increased since p rior exam. There is poor inspiration.There is a small left pleural effusion. The exam is rotated. Evaluation of thecardiac silhouette is limited by projection. The visualized osseous structuresappear unremarkable.IMPRESSION: There is a righ t lower lobe infiltrate or atelectasis which isincreased since prior exam.Duplex Uppe r Ext Venous LeftResult Date: 12/26/2018DUPLEX UPPER EXT VENOUS LEFT Clinical Data: Arm swelling, DVT suspectedFindings: The visualized segments of the left upper ex tremity venous circulationfrom the level of the subclavian vein to the brachial vein is compressible andshows normal phasic flow without an intraluminal thrombus. In ad dition, theinternal jugular vein and the basilic vein is also patent. Extremely l imitedexam because the patient was unable to cooperate and this was done in a portabl efashion.IMPRESSION: No evidence of deep vein thrombosis within the visualized left up perextremity venous circulation. Limited study.Duplex Lower Ext Venous BilatResul t Date: 01/11/2019HISTORY: swelling to lower extremities TECHNIQUE: Bilateral lower e xtremityvenous Doppler ultrasound Using real time and color-flow Doppler as well assp ectral analysis and ultrasound examination was performed of the lowerextremities bi laterally. FINDINGS: On the right side the common femoral vein,superficial femoral vein along its entire course, as well as popliteal vein allappeared widely patent , were easily compressible, showed normal spontaneousflow. The calf veins were not visualized due to body habitus. On the left sidethe common femoral vein, superficial femoral vein along its entire course, aswell as popliteal vein all appeared widely pa tent, were easily compressible, andshowed normal spontaneous flow. The calf veins were not visualized due to bodyhabitus.IMPRESSION: Normal bilateral lower extremity venous Doppler ultrasound with noevidence of deep vein thrombosis. Medications reviewedCurrent Facility-Administered MedicationsMedicat ion Dose Route Frequency phosphorus (K PHOS NEUTRAL) 250 mg tablet 1 Tab 1 Tab Oral BID acetylcysteine (MUCOMYST) 100 mg/mL (10 %) nebulizer solution 400 mg 4 mLNebuli zation BID RT multivit-folic acid- herbal 275 (WELLESSE PLUS) oral liquid 30 mL 30 mL Per GTube DAILY budesonide (PULMICORT) 500 mcg/2 ml nebulizer suspension 500 mcg N ebulizationBID RT sodium chloride (NS) flush 5-10 mL 5-10 mL IntraVENous PRN choles tyramine-aspartame (QUESTRAN LIGHT) packet 4 g 4 g Oral TID WITH MEALS cinacalcet ( SENSIPAR) tablet 60 mg 60 mg Oral DAILY lamoTRIgine (LaMICtal) tablet 50 mg 50 mg Per G Tube BID pantoprazole (PROTONIX) granules for oral suspension 40 mg 40 m g Per G TubeACB valproic acid (as sodium salt) (DEPAKENE) 250 mg/5 mL (5 mL) oral solution 750mg 750 mg Oral BID ALPRAZolam (XANAX) tablet 0.5 mg 0.5 mg Per G Tube QHS acetaminophen (TYLENOL) solution 650 mg 650 mg Oral Q4H PRN heparin (porcine) injection 5,000 Units 5,000 Units SubCUTAneous Q12H influenza vaccine 201 9-20 (65 yrs+)(PF) (FLUZONE HIGH-DOSE) injection 0.5 mL0.5 mL IntraMUSCular YUAN OR TO DISCHARGE albuterol-ipratropium (DUO-NEB) 2.5 MG-0.5 MG/3 ML 3 mL Nebul ization Q6H RTAssessment/Plan:Hospital Problems Date Reviewed: 01/20/2019 Codes Class Noted POA Acute respiratory failure with hypoxia (HCC) ICD-10-CM: J9 6.01ICD-9-CM: 518.81 01/10/2019 Unknown Pneumonia involving right lung ICD-10-CM : J18.9ICD-9-CM: 486 01/10/2019 Unknown Hyponatremia ICD-10-CM: E87.1ICD-9-CM: 2 76.1 01/10/2019 YesAssessment: Lung nodule right lateral wall of trachea(not visual ized on f/u ct scan with contrast) Acute Respiratory Failure with Hypercapnia and HypoxiaPneumonia likely Aspiration RLLAtelectasisDysphagia s/p surgical jocelyn riley pegFor conversion of GT to JtubeMentally challengedSeizureHyperparathyroidLeft an kle and pedal edema- Resolved(DVT Ruled OUT) Plan: Continuous O2 NC incr to 4 lpm; n ightly Bipap per pulmonary off antibioticsNebulizersFollow culturesRest raints with mitts PRNContinue with bolus TF for nowD/W Dr Mansfield gi will place pt o n the endo scheduleand ordrering the KitPulmonary f/Lawrence Alvarez r 2018Time: 7:39 PM Name Value Range Interpretation Code Description Data Harriett rce(s) Supporting Document(s ) ID Date Data Source [id number] 01/21/2019 07:28:47 AM EDT [facility] Bedside and Verbal shift change report g iven to JACQUELYN CALDERON RN (oncoming nurse)by SKYE KEYES RN (offgoing nurse). Repor t given with SBAR, Kardex,Intake/Output, MAR and Recent Results. Opportunities for qu estions provided andclarification given. Name Value Range Interpretation Code Description Data Harriett rce(s) Supporting Document(s ) ID Date Data Source [id number] 01/21/2019 07:39:56 AM EDT [facility] Name Value Range Interpretation Description Data Sup porting Code Source(s) Document(s ) Sodium 138 136-145 [facility] - Good [Moles/volume] mmol/L [facility] in Serum or Hospital Plasma Potassium 4.0 3.5-5.1 [facility] - Good [Moles/volume] mmol/L [facility] in Serum or Hospital Plasma Chloride 98 98-107 [facility] - Good [Moles/volume] mmol/L [facility] in Serum or Hospital Plasma Carbon 36 21-32 Above high normal [facility] - Good dioxide, total mmol/L [facility] [Moles/volume] Hospital in Serum or Plasma Anion gap in 8 mmol/L 10-20 Below low normal [facility] - Go od Serum or [facility] Plasma Hospital Glucose 85 mg/dL 74-106 [facility] - Good [Mass/volume] [facility] in Serum or Hospital Plasma Urea nitrogen 17 mg/dL 7-18 [facility] - Good [Mass/volume] [facility] in Serum or Hospital Plasma Creatinine 0.37 0.70-1.3 Below low normal [facility] - Good [Mass/volume] mg/dL 0 [facility] in Serum or Hospital Plasma Glomerular >60 [facility] - Good filtration [facility] rate/1.73 sq M Hospital predicted among blacks [Volume Rate/Area] in Serum or Plasma by Creatinine-bas ed formula (MDRD) Glomerular >60 [facility] - Good filtration [facility] rate/1.73 sq M Hospital predicted among non-blacks [Volume Rate/Area] in Serum or Plasma by Creatinine-bas ed formula (MDRD) Calcium 9.8 8.5-10.1 [facility] - Good [Mass/volume] mg/dL [facility] in Serum or Hospital Plasma Phosphate 2.7 2.5-4.9 [facility] - Good [Mass/volume] mg/dL [facility] in Serum or Hospital Plasma Albumin 1.7 g/dL 3.5-4.7 Below low normal [facility] - Good [Mass/volume] [facility] in Serum or Hospital Plasma by Bromocresol purple (BCP) dye binding method ID Date Data Source [id number] 01/21/2019 07:39:56 AM EDT [facility] Name Value Range Interpretation Description Data Sup porting Code Source(s) Document(s ) Magnesium 1.9 mg/dL 1.6-2.6 [facility] - Good [Mass/volume] [facility] in Serum or Hospital Plasma ID Date Data Source [id number] 01/20/2019 02:03:10 PM EDT [facility] Problem: Nutrition DeficitGoal: *Optimiz e nutritional statusDescriptionPt to progress towards meeting >80% nutrient needs with in 3-7 daysOutcome: Progressing Towards GoalOnce J-tube placed and EN restarted, suggest Osmolite 1.5 at 20 mL/hrprogressing towards goal rate of 50 mL/hr (1800 kcal , 75 gm pro, 244 gm CHO, 59gm fat, 914 mL water) and 125 mL free water flush q 4 h r if no IVFRecommend NO bolus feeding through J-tube Name Value Range Interpretation Code Description Data Harriett rce(s) Supporting Document(s ) ID Date Data Source [id number] 01/20/2019 02:02:20 PM EDT [facility] NUTRITIONFollow Up NoteSubjective: Pt to lerated one bolus feeding this am per RN, second feeding helddue to possible conve rsion of GT to JT today. Nutrition Rx: Osmolite 1.5 bolus, 1 can q 6 hr, free w ater 100 mL after bolusLabs: Na 133 Creat 0.32 PO4 2.3Medications reviewed. Receiv ing Questran Light. Phosphorus replaced.Skin: Redness to scab in center, L lateral ank le (per flowsheet)Butch score 12Trace LLE, RUE, RLE edemaWeight: 56.5 kg (stable) N utrition Diagnosis: remains the same (Increased protein and energy needs)Once J-tube placed and EN restarted, suggest Osmolite 1.5 at 20 mL/hrprogressing towa rds goal rate of 50 mL/hr (1800 kcal, 75 gm pro, 244 gm CHO, 59gm fat, 914 mL water) and 125 mL free water flush q 4 hr if no IVFRecommend NO bolus feeding through J- tubeWill continue to monitor EN, Skin integrity. Discharge Planning: Pending c linical course Candy Correa RD Name Value Range Interpretation Code Description Data Harriett rce(s) Supporting Document(s ) ID Date Data Source [id number] 01/20/2019 01:39:21 PM EDT [facility] PULMONARY/ CCM- Consult NotePatient: Ivelisse Carlin Sex: male DOA: 01/10/2019Date of : 1 Age: 68 y.o. LOS: LOS: 10 daysHPI: step down.Evelio Carlin is a 68 y.o. 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 Authoriz ing ProvidervalACYclovir (VALTREX) 1 gram tablet Take 1,000 mg by mouth two (2) ti mes a day.Yes Provider, Historicalacetaminophen (TYLENOL) 325 mg suppository Insert 650 mg into rectum every four(4) hours as needed for Fever. Yes Provider, Historicalclorazepate (TRANXENE) 3.75 mg tablet 1 Tab by Per G Tube route nightly. MaxDaily Amount: 3.75 mg. 12/30/18 Mili Hills DOmultivitamin (ONE A D AY) tablet 1 Tab by Per G Tube route daily. 12/30/18Mili Hills DOcinacalcet (SE NSIPAR) 30 mg tablet Take 2 Tabs by mouth daily. 12/30/18 Mili Hills DOlamoT RIgine (LAMICTAL) 25 mg tablet 2 Tabs by Per G Tube route two (2) times aday. 12/30/18 Mili Hills DOalbuterol-ipratropium (DUO-NEB) 2.5 mg-0.5 mg/3 ml nebu 3 mL b y Nebulizationroute every six (6) hours. Every 6 hours while awake 12/30/18 Mili Escuedro DOalbuterol-ipratropium (DUO-NEB) 2.5 mg-0.5 mg/3 ml nebu 3 mL by Nebuliza tionroute every four (4) hours as needed for Cough (wheezing, shortness of breath). Mili Hills DObudesonide (PULMICORT) 0.5 mg/2 mL nbsp 2 mL by Neb ulization route two (2) timesa day. 12/30/18 Mili Hills DObacitracin 500 unit/g escobar ointment Apply 1 Packet to affected area two (2) timesa day. Indications: minor s kin infection due to bacteria, facial scabs 12/30/18Mili Hills DOcholestyramine -aspartame (QUESTRAN LIGHT) 4 gram packet Take 1 Packet by mouththree (3) times da pierre (with meals). 12/30/18 Mili Hills DOpantoprazole (PROTONIX) 40 mg granules for oral suspension 40 mg by Per G Tuberoute Daily (before breakfast). 11/28/18 YonatanMili prado DOvalproate (DEPAKENE) 250 mg/5 mL syrup Take 750 mg by mouth two (2) ti mes a day.Provider, HistoricalNo Known AllergiesNo past surgical history on yoshi e.No family history on file.Social HistorySocioeconomic History Marital st atus: SINGLE Spouse name: Not on file Number of children: Not on file Years o f education: Not on file Highest education level: Not on fileTobacco Use Smoking s tatus: Never Smoker Smokeless tobacco: Never UsedSubstance and Sexual Activity Alcoh ol use: No Drug use: NoReview of SystemsPertinent items are noted in the History of Present Illness.Physical Exam:Current medications:Current Facilit y-Administered Medications: sodium phosphate 15 mmol in 0.9% sodium chlorid e 250 mL infusion, ,IntraVENous, ONCE, Oralia Frankel MD phosphorus (K PHOS N EUTRAL) 250 mg tablet 1 Tab, 1 Tab, Oral, BID, Mili Hills DO, 1 Tab at 0842 acetylcysteine (MUCOMYST) 100 mg/mL (10 %) nebulizer solution 400 mg, 4 mL,N ebulization, BID RT, Krystian Monae MD, 400 mg at 01/20/19 0755 multivit-folic aci d-herbal 275 (WELLESSE PLUS) oral liquid 30 mL, 30 mL, PerG Tube, DAILY, Patricio Hills DO, 30 mL at 01/20/19 0845 budesonide (PULMICORT) 500 mcg/2 ml nebulizer suspe nsion, 500 mcg,Nebulization, BID RT, Mili Hills DO, 500 mcg at 01/20/19 0755 sodium chloride (NS) flush 5-10 mL, 5-10 mL, IntraVENous, PRN, Wes Romero MD, 10 mL at 01/19/19 1737 cholestyramine-aspartame (QUESTRAN LIGHT ) packet 4 g, 4 g, Oral, TID WITHMEALS, Mili Hills DO, Stopped at 01/20/19 1200 cinacalcet (SENSIPAR) tablet 60 mg, 60 mg, Oral, DAILY, Mili Hills DO, 60 mg at 01/20/19 0842 lamoTRIgine (LaMICtal) tablet 50 mg, 50 mg, Per G Tu be, BID, Mili Hills DO, 50 mg at 01/20/19 0842 pantoprazole (PROTONIX) granules for oral suspension 40 mg, 40 mg, Per GTube, ACB, Mili Hills DO, 40 mg at 01/20/19 0842 valproic acid (as sodium salt) (DEPAKENE) 250 mg/5 mL (5 m L) oral okwdtdad280 mg, 750 mg, Oral, BID, Mili Hills DO, 750 mg at 01/20/19 0842 ALPRAZolam (XANAX) tablet 0.5 mg, 0.5 mg, Per G Tube, QHS, Mili Hills DO, 0.5 mg at 01/19/19 2159 acetaminophen (TYLENOL) solution 650 mg, 650 mg, Oral, Q4H PRN, Mili Hills DO heparin (porcine) injection 5,000 Units, 5,000 U nits, SubCUTAneous, Q12H,Mili Hills DO, 5,000 Units at 01/20/19 0055 influenza vaccine 2019- (65 yrs+)(PF) (FLUZONE HIGH-DOSE) injection 0.5 mL,0.5 mL, Intr aMUSCular, PRIOR TO DISCHARGE, Mili Hills DO albuterol-ipratropium (DUO -NEB) 2.5 MG-0.5 MG/3 ML, 3 mL, Nebulization, Q6HRT, Krystian Monae MD, 3 mL at 0755DataVisit VitalsBP 117/62 (BP 1 Location: Left arm, BP Patient Position: At rest)Pulse 83Temp 99.6 F (37.6 C)Resp 18Ht 5' 2" (1.575 m)Wt 56.5 kg (124 lb 8 oz)SpO2 96%BMI 22.77 kg/m Intake and Output:Date 01/19/19699 - 01/20/19 065 9 01/20/19699 - 01/21/19 0659Shift 4642-4107 0004-4180 24 Hour Total 0700-1 859 0292-8775 24 Hour TotalINTAKENG/GT 1280 1280 Water Flush Volume (mL) (PEG/Gastr ostomy Tube) 300 300 Medication Volume (PEG/Gastrostomy Tube) 500 500 Intake (ml) (PEG/Gastrostomy Tube) 480 480Shift Total(mL/kg) 1280(22.7) 1280(22.7)OUTPU TUrine(mL/kg/hr) 400(0.6) 200(0.3) 600(0.4) Urine Voided 400 400 Urine Output (mL) (Condom Catheter 01/16/19) 200 200Shift Total(mL/kg) 400(7.1) 200(3.5) 600(10.6) NET 880 -200 680Weight (kg) 56.5 56.5 56.5 56.5 56.5 56.5Pulse OX:SpO2 Readings fro m Last 6 Encounters:01/20/19 96%12/30/18 96%11/27/18 91%09/26/15 96%@LASTSAO2(6)@ PHYSICAL EXAM:General: Lethargic,responding.Head: Normocephal ic, without obvious abnormality, atraumatic.Eyes: Conjunctivae clear, a nicteric sclerae. Pupils are equalNose: Nares normal. No drainage or sinus tende rness.Throat: Lips, mucosa, and tongue normal. No ThrushNeck: Supple, symmetr ical, no adenopathy, thyroid: non tender no carotid bruit and no JVD.Back: Symmet rodger, No CVA tenderness.Lungs: Scattered rhonchi,Chest wall: No tenderness or de formity. No Accessory muscle use.Heart: Regular rate and rhythm, no murmur, rub or gallop.Abdomen: Soft, non-tender. Not distended. Bowel sounds normal. No mass esExtremities: Extremities normal, atraumatic, No cyanosis. No edema. No c lubbingSkin: Texture, turgor normal. No rashes or lesions. Not JaundicedLymph n odes: Cervical, supraclavicular normal.Psych: Good insight. Not depressed. Not anxi ous or agitated.Neurologic: EOMs intact. No facial asymmetry. No aphasia or slurred speech.Most recent labs:Recent Labs 01/20/1904WB C 9.0 7.4 7.6HGB 10.2* 11.0* 11.5*HCT 31.7* 33.8* 35.4*PLT 333 339 340Recent Labs 1 01/20/1904NA 133* 131* 131*K 4.3 4.4 4.4CL 94* 93* 92*CO2 36* 35* 34*GLU 75 101 85BUN 12 11 11CREA 0.32* 0.45* 0.37*CA 9.5 9.7 9.8MG 2.0 1. 8 2.0PHOS 2.3* 1.8* 2.0*ALB 1.5* 1.7* 1.9*No results for input(s): PH, PCO2, PO2, HCO 3, FIO2 in the last 72 hours.ABG:No results for input(s): PH, PCO2, PO2, HCO3, FIO2 in the last 72 hours.Cultures:No results found for: [employer] GroupESLab ResultsComponent Valu e Date/Time Culture result: NO GROWTH 1 DAY 01/10/2019 08:58 AM Culture result: NO G ROWTH 5 DAYS 01/10/2019 07:55 AM Culture result: NO GROWTH 5 DAYS 01/10/2019 07:4 0 AM Culture result: NO GROWTH 5 DAYS 12/29/2018 11:23 AM Culture result: NO G ROWTH 5 DAYS 12/29/2018 11:00 AM Culture result: 10,000 to 50,000 COLONIES/mL KLE BSIELLA PNEUMONIAE (A)12/29/2018 11:00 AM Culture result: 50,000-100,000 COLONIES/ mL PSEUDOMONAS AERUGINOSA (A)12/29/2018 11:00 AM Culture result: (A) 12/29/2018 11:00 AM 10,000 to 50,000 COLONIES/mL STAPHYLOCOCCUS EPIDERMIDIS Culture resul t: NO GROWTH 2 DAYS 12/24/2018 09:45 AM Culture result: NO GROWTH 5 DAYS 019 12:00 PM Culture result: NO GROWTH 5 DAYS 12/23/2018 11:40 AM Culture result: NO G ROWTH 4 DAYS 12/19/2018 12:30 PM Culture result: NO GROWTH 4 DAYS 12/19/2018 12:3 0 PM Culture result: NO GROWTH 1 DAY 12/12/2018 08:04 PM Culture result: NO G ROWTH 5 DAYS 12/12/2018 07:40 PM Culture result: NO GROWTH 5 DAYS 12/12/2018 07:4 0 PM Culture result: NO GROWTH 2 DAYS 11/20/2018 09:00 AM Culture result: NO G ROWTH 5 DAYS 11/07/2018 08:10 PM Culture result: NO GROWTH 5 DAYS 11/07/2018 08:0 0 PMImages:Cta Chest W Or W Wo ContResult Date: 11/08/2018Examination: CTA Chest ? PE angiography History: Hypoxia; rule out pneumoniaversus pulmonary embolism Prior s: None Technique: Low-dose, multiplanar,helical CTA chest was perfor med with bolus IV injection from lung apices tobases. 3D-reformatted images were obt ained and reviewed on a dedicated viewingworkstation and directly supervis ed. Contrast: A total of 71 mL of Isovue-370was administered intravenously for this procedure. Findings: No evidence ofpulmonary embolism is seen. There is d ecreased size of the right hemithorax fromchronic scarring and retraction with mediastinal shift left to right.Additional area of consolidation is seen in the rig ht lower lobe and suggestssuperimposed pneumonia with subsegmental atelectasis. Subsegmental atelectasisis also noted in the left lung base, with pleural parench ymal scarring. Lowlung volumes are seen. No pneumothorax seen. Aorta normal in calib er withoutaneurysm or dissection. Mediastinum no adenopathy. Mediastinal shift is see n inthe left and right as a result of chronic changes in the right hemithorax. Heart shows no chamber enlargement or pericardial effusion. No acute fractures seen in the bony thorax, sternum, manubrium and rib cage. Multiple compressiondefor mities are seen in the mid and lower thoracic spine, with superimposedspondyloarthropa thy. Cannot exclude acute fracture.Impression: No evidence of pul monary embolism Right lower lobe pneumoniasuggested. Incidental scarring and retraction in the right hemithorax fromremote/chronic inflammatory disease and/or trauma. Bibasilar subsegmentalatelectasis. Report Electron ically Signed By: Pawel Zafar M.D. -11/08/2018 12:40 AMXr Chest PortResult D ate: 11/07/2018XR CHEST PORT CLINICAL INDICATION PROVIDED:. "sob." COMPARISON: . 09/26/2015.FINDINGS:. The pericardial/cardiac silhouette is enlarg ed in the transversedimension. There is no pulmonary vascular congestion or interst itial edema.Linear density in the left lung base and faint densities in the right mi d tolower lung likely represent atelectasis. There is no lobar consolidation oreffusi on. There is no pneumothorax.IMPRESSION:. Bilateral lower lung atelectasis. No donna dence of consolidation oreffusion.Assessment/PlanActive Problem s: Acute respiratory failure with hypoxia (HCC) (01/10/2019) Pneumonia involving r ight lung (01/10/2019) Hyponatremia (01/10/2019) Acute resp failure combined, pneumonia acute copd exacerbation pe ruled out.PLAN,Monitoring,bipap prn for resp d istressIvabx as per id,Steroid nebbipap prn and at night.NebGi follow up noted.D/w n ursing staff.Stella Hamilton MDOct2018The billing code submitted in [facility] with this evaluation also includes thetime to review patient's prior record s, communicate with the physician team,obtain corroborating data, and discuss the risk and benefits of the proposedmanagement plan with the patient and their family >30 mi nutes. Name Value Range Interpretation Code Description Data Harriett rce(s) Supporting Document(s ) ID Date Data Source [id number] 01/20/2019 12:22:39 PM EDT [facility] ID Progress Note01/20/2019Subjective:Siri ent with mental retardation,recurrent aspiration pneumonia.on BIPAP at nightAf ebrileNo NEW event overnightNon verbal,unable to provide history.Awaiting G Tube conve rsion to J tube.Objective:Vitals:Patient Vitals for the past 24 hrs: BP Temp Puls e Resp [id number]/20/19 0743 117/62 99.6 F (37.6 C) 83 18 96 %01/20/19 0403 123/69 97.7 F (36.5 C) 85 16 92 %01/20/19 0207 - - - - 97 %01/19/19 2133 - - - - 96 %01/19/19 2 022 118/81 98.2 F (36.8 C) 100 20 100 %01/19/19 1546 116/81 98.7 F (37.1 C) (!) 106 20 99 %Tmax: Temp (24hrs), Av.6 F (37 C), Min:97.7 F (36.5 C), Max:99 .6 F(37.6 C)Physical Exam:General: Lethargic non verbalNeck: Supple, symmet rical, trachea midline, no adenopathLungs: Decrease breath sounds at bases.Heart: Regular rate and rhythm, S1, S2 normalAbdomen: Soft, non-tender. Bowel sounds normal. No masses, No organomegaly.+feeding tubeBack: No CVA tenderness.Extremities: Chronic lymphedema.Pulses: 2+ and symmetric all extremities.Skin: Skin color, texture, turgor normal. No rashes or lesionsCurrent Faci lity-Administered MedicationsMedication Dose Route Frequency sodium phosphate 15 mmo l in 0.9% sodium chloride 250 mL infusion IntraVENousONCE phosphorus (K PHOS NEUT RAL) 250 mg tablet 1 Tab 1 Tab Oral BID acetylcysteine (MUCOMYST) 100 mg/mL (10 %) nebulizer solution 400 mg 4 mLNebulization BID RT multivit-folic ac id-herbal 275 (WELLESSE PLUS) oral liquid 30 mL 30 mL Per GTube DAILY budesonide (P ULMICORT) 500 mcg/2 ml nebulizer suspension 500 mcg NebulizationBID RT sodium chlor wade (NS) flush 5-10 mL 5-10 mL IntraVENous PRN cholestyramine-aspartame (QUESTRAN LIGHT) packet 4 g 4 g Oral TID WITH MEALS cinacalcet (SENSIPAR) tablet 60 mg 60 m g Oral DAILY lamoTRIgine (LaMICtal) tablet 50 mg 50 mg Per G Tube BID pantoprazol e (PROTONIX) granules for oral suspension 40 mg 40 mg Per G TubeACB valproic acid ( as sodium salt) (DEPAKENE) 250 mg/5 mL (5 mL) oral solution 750mg 750 mg Oral BID AL PRAZolam (XANAX) tablet 0.5 mg 0.5 mg Per G Tube QHS acetaminophen (TYLENOL) soluti on 650 mg 650 mg Oral Q4H PRN heparin (porcine) injection 5,000 Units 5,000 U nits SubCUTAneous Q12H influenza vaccine 2019- (65 yrs+)(PF) (FLUZONE HIGH-DOSE ) injection 0.5 mL0.5 mL IntraMUSCular PRIOR TO DISCHARGE albuterol-ipratropium (DUO -NEB) 2.5 MG-0.5 MG/3 ML 3 mL Nebulization Q6H RTLabs:Recent Labs 3 6 WBC 9.0 7.4 7.6HGB 10.2* 11.0* 11.5*PLT 333 339 340BUN 12 1 1 11CREA 0.32* 0.45* 0.37*Cultures:Lab ResultsComponent Value Date/Time Culture result: NO GROWTH 1 DAY 01/10/2019 08:58 AM Culture result: NO GROWTH 5 DAYS 019 07:55 AM Culture result: NO GROWTH 5 DAYS 01/10/2019 07:40 AMRadiology:No results found.Assessment: Aspiration pneumonia s/p treatment Acute hypoxic respiratory jeanette lure. Dysphagia Pleural effusion. . COPD Plan:1. Continue current managmentMahlasim Gomez MDMclaren Flintober [id number] PM Name Value Range Interpretation Code Description Data Harriett rce(s) Supporting Document(s ) ID Date Data Source [id number] 01/20/2019 09:59:03 AM EDT [facility] GI CONSULTATION NOTENAME: Evelio Vierach beinDOB: 1950MRN: [id number] Physician: ReinierConsult Date: 01/20/2019 Chief Complaint: dysphagiaHistory of Present Illness: Patient is a 68 y.o. who has a history of dysphagiaand aspiration as well as a large hiatal hernia s/p surgical G- tube 11/17/18. Hewas evaluated for conversion of GT to JT during recent admission for pneumoniabut was tolerating bolus feeds so decision made to defer this procedure. N Ore-admitted with resp failure and family has requested conversion of G-tube to Jtube. Patient cannot participate in history. 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 Taking?aceta minophen (TYLENOL) 325 mg suppository Yes YesSig: Insert 650 mg into rectum every four (4) hours as needed for Fever.albuterol-ipratropium (DUO-NEB) 2. 5 mg-0.5 mg/3 ml nebu No NoSi mL by Nebulization route every six (6) hours. Every 6 hours while awakealbuterol-ipratropium (DUO-NEB) 2.5 mg-0.5 mg/3 ml nebu No NoSi mL by Nebulization route every four (4) hours as needed for Cough(wheezing, shortness of breath).bacitracin 500 unit/gram ointmen t No NoSig: Apply 1 Packet to affected area two (2) times a day. Indications: minors kin infection due to bacteria, facial scabsbudesonide (PULMICORT) 0.5 mg/2 mL nbsp No NoSi mL by Nebulization route two (2) times a day.cholestyramine-aspar tame (QUESTRAN LIGHT) 4 gram packet No NoSig: Take 1 Packet by mouth three (3) times daily (with meals).cinacalcet (SENSIPAR) 30 mg tablet No NoSig: Take 2 Tabs by mouth daily.clorazepate (TRANXENE) 3.75 mg tablet No NoSi Tab by Per G Tube route nightly. Max Daily Amount: 3.75 mg.lamoTRIgine (LAMICTAL) 25 mg tablet No NoSi Tabs by Per G Tube route two (2) times a day.multivitamin (ONE A DAY) tab let No NoSi Tab by Per G Tube route daily.pantoprazole (PROTONIX) 40 mg gran ules for oral suspension No NoSi mg by Per G Tube route Daily (before breakfast ).valACYclovir (VALTREX) 1 gram tablet Yes YesSig: Take 1,000 mg by mouth two (2) t imes a day.valproate (DEPAKENE) 250 mg/5 mL syrup Yes NoSig: Take 750 mg by mouth two (2) times a day.Facility-Administered Medications: NoneHospital Medications:Cu rrent Facility-Administered MedicationsMedication Dose Route Frequen cy sodium phosphate 15 mmol in 0.9% sodium chloride 250 mL infusion IntraVENousON CE phosphorus (K PHOS NEUTRAL) 250 mg tablet 1 Tab 1 Tab Oral BID acetylcysteine (M UCOMYST) 100 mg/mL (10 %) nebulizer solution 400 mg 4 mLNebulization BID RT multivi t-folic acid-herbal 275 (WELLESSE PLUS) oral liquid 30 mL 30 mL Per GTube DAILY bud esonide (PULMICORT) 500 mcg/2 ml nebulizer suspension 500 mcg NebulizationBID RT sodium chloride (NS) flush 5-10 mL 5-10 mL IntraVENous PRN cholestyramine-aspartam e (QUESTRAN LIGHT) packet 4 g 4 g Oral TID WITH MEALS cinacalcet (SENSIPAR) tablet 60 mg 60 mg Oral DAILY lamoTRIgine (LaMICtal) tablet 50 mg 50 mg Per G Tub e BID pantoprazole (PROTONIX) granules for oral suspension 40 mg 40 mg Per G TubeA CB valproic acid (as sodium salt) (DEPAKENE) 250 mg/5 mL (5 mL) oral solution 750mg 750 mg Oral BID ALPRAZolam (XANAX) tablet 0.5 mg 0.5 mg Per G Tube QHS acetamino phen (TYLENOL) solution 650 mg 650 mg Oral Q4H PRN heparin (porcine) injection 5,0 00 Units 5,000 Units SubCUTAneous Q12H influenza vaccine 2019- (65 yrs+)(PF) (FLUZONE HIGH-DOSE) injection 0.5 mL0.5 mL IntraMUSCular PRIOR TO DISCHARGE albute rol-ipratropium (DUO-NEB) 2.5 MG-0.5 MG/3 ML 3 mL Nebulization Q6H RTSocial History:S ocial HistoryTobacco Use Smoking status: Never Smoker Smokeless tobacco: Never U sedSubstance Use Topics Alcohol use: NoFamily History:No family history on fi le.Review of Systems:A detailed 10 system ROS is obtained, with pertinent positives as listed in theHPI and PMH. All others are negative.Objective:Patient Vitals for e past 8 hrs: BP Temp Pulse Resp [id number]/20/19 0743 117/62 99.6 F (37.6 C) 83 18 96 % 01/20/19 0403 123/69 97.7 F (36.5 C) 85 16 92 %01/20/19 0207 - - - - 97 %No intake/ output data recorded.01/18 1901 - 01/20 0700In: 1480Out: 850 [Urine:850]PHYSICAL EXAM:General: no acute distress HEENT: NC, Atraumatic. PERRLA, EOMI. Anicteric scl erae.Lungs: CTA Bilaterally. No Wheezing/Rhonchi/Rales.Heart: Regular rhythm, No murmur (), No Rubs, No GallopsAbdomen: Soft, Non distended, Non tender. +Bowel sounds, no HSMExtremities: No c/c/eData ReviewRecent Labs 01/20/19 0543 6WBC 9.0 7.4HGB 10.2* 11.0*HCT 31.7* 33.8*PLT 333 339Recent La bs 01/20/19046NA 133* 131*K 4.3 4.4CL 94* 93*CO2 36* 35*BUN 12 11CRE A 0.32* 0.45*GLU 75 101PHOS 2.3* 1.8*CA 9.5 9.7Recent Labs 01/20/1904 6ALB 1.5* 1.7*No results for input(s): INR, PTP, APTT, INREXT in the last 72 hours.I maging studies reviewedAssessment:Patient Active Problem ListDiagnosis Code Parae sophageal hiatal hernia K44.9 COPD (chronic obstructive pulmonary disease) ([facility]) J44 .9 Acute respiratory distress R06.03 Pneumonia J18.9 COPD exacerbation ([facility]) J44.1 Sepsis due to undetermined organism ([facility]) A41.9 Generalized anxiety disorde r F41.1 Acute respiratory failure with hypoxia ([facility]) J96.01 Pneumonia involvin g right lung J18.9 Hyponatremia E87.1Plan:Call placed to family re: cons enting for procedure. The procedure is not withoutsome respiratory risk. Once conse nt obtained, can proceed. Name Value Range Interpretation Code Description Data Harriett rce(s) Supporting Document(s ) ID Date Data Source [id number] 01/20/2019 09:25:50 AM EDT [facility] Progress NotePatient: Evelio Carlin Sex: male DOA: 01/10/2019Date of : 1950 Age: 68 y.o. :[id number]:Reyes Carlin is 68 y.o. male Who is more awake and alert. He is appearingcomfortable. He is pulling off his nasal canula. The RN is requestingrestraints.Will order Mitts for restraints.Pt Presented to the ED from [facility] with medical history of Dysphagia ,s/p surgical placement of peg on 11/17/18, severe intellectual disability,Chronic respiratory failure, large Hiatal Hernia, hyperparathyroid unspecified,personal h/ o pulmonary embolus, anxiety disorder, kyphosis and schizophrenia. Ptis nonverb al at baseline and is unable to provide a history.Per long-term transfer record s, at 6 AM, patient was found Hypoxic, with O2SAT of 87 % on O2 NC 87 % on 4 LPM, h eart rated 111 BPM, Blood Pressure of 105/73, respiratoryrate of 30 andaudible wheeze. Nebulizer treatment was given. He was placed on a NRM withimproved O2 SAT to 95 % , his respiratory rate was 30 and he was afebrile. Thenursing home transfer r ecord reporting that the resident removes nasal canulaat times. In the ED pt appe aring lethargic and having mild respiratory distress.CXR showing haziness at the rig ht lung base due to small effusion withatelectasis/infiltrate. No confluen t left lung process is seen. 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 Pupils are equalNeck: Supple, symmetrical, no adenopathy, no carotid bruit and no JVD.Lungs: Clear to auscultation bilaterally. No Wheezing o r Rhonchi. No rales.Chest wall: No Accessory muscle use.Heart: Regular ra te and rhythm, no murmur, or rubAbdomen: Positive Peg in place, soft non-tender. Not distended. Bowel soundsnormal. No massesExtremities: Extremities normal, a traumatic, No cyanosis. No edema. No clubbingSkin: Warm and dry. No rashe s or lesions. Not JaundicedLymph nodes: Cervical, supraclavicular normal.Psych: Not anxious or agitated.Neurologic: EOMs intact. No facial asymmetry. No aphasia or slurred speech.Generalized weakness, non ambulatory at baseline,, Alert and Awake .Intake and Output:Current Shift: No intake/output data recorded.Last three s hifts: 01/18 1901 - 01/20 0700In: 1480Out: 850 [Urine:850]Lab/Data Reviewed:Recent Days:Recent Labs 01/20/1904WBC 9.0 7.4 7.6HGB 10.2* 11. 0* 11.5*HCT 31.7* 33.8* 35.4*PLT 333 339 340Recent Labs 01/20/1904NA 133* 131* 131*K 4.3 4.4 4.4CL 94* 93* 92*CO2 36* 35* 34*GLU 75 1 01 85BUN 12 11 11CREA 0.32* 0.45* 0.37*CA 9.5 9.7 9.8MG 2.0 1.8 2.0PHOS 2.3* 1.8* 2.0* ALB 1.5* 1.7* 1.9*No results for input(s): PH, PCO2, PO2, HCO3, FIO2 in the last 72 hours.CULTURE, BLOOD [[id number]] (Order [id number])MicrobiologyDate: 01/10/2019 De partment: [facility] 3t Med Surg Released By/Authorizing: Wes Romero MD (a uto-released)Specimen Information: Blood Component Value Flag Ref Range Units Sta tusSpecial Requests: PreliminaryNO SPECIAL REQUESTSCulture result: NO GROWT H 3 DAYSCULTURE, BLOOD [[id number]] (Order [id number])MicrobiologyDate: 01/10/2019 De partment: [facility] 3t Med Surg Released By/Authorizing: Wes Romero MD (a uto-released)Specimen Information: Blood Component Value Flag Ref Range Units Sta tusSpecial Requests: PreliminaryNO SPECIAL REQUESTSCulture result: NO GROWT H 3 DAYSCULTURE, URINE [[id number]] (Order [id number])MicrobiologyDate: 01/10/2019 De partment: [facility] 3t Med Surg Released By/Authorizing: Wes Romero MD (a uto-released)Specimen Information: Clean catch; Urine Component Value Flag Ref Ra nge Units StatusSpecial Requests: FinalNO SPECIAL REQUESTSCulture result: NO GROWTH 1 DAY FinalXr Chest Sngl VResult Date: 12/25/2018Portable chest x- ray. PRIOR EXAM: X-ray 12/18/2018 HISTORY: Pneumonia FINDINGS:The heart is normal i n size. The mediastinum and pulmonary vessels areunremarkable. There is a small right pleural effusion.. A tube projected overthe left upper quadrant of the abdomen..IMPR ESSION: Small right pleural effusion.Ct Chest Wo ContResult Date: 01/10/2019CT CHEST WO CONT Clinical data: evaluation of pneumonia rt lung. Priors:12/18/2018 Technique: CT s can of the chest was performed from the thoracic inletto below the diaphragm wit hout administration of intravenous contrast. Theacquisition data was reviewed in the axial, sagittal and coronal plane.Utilizing silver holloware assembler algorithm the examination w as performed to optimizeimaging quality by utilizing the lowest possible radiation dose. Findings: Thereis no evidence of pathological lymphadenopathy within the mediastinum, bilateralhilar and bilateral axillary location. There is a 1.8 cm no dule along the rightwall of the trachea at the level of the thoracic inlet (best se en on image 13ofseries 2) not seen on the prior study. This may be due to a mucou s plug. Noadditional endotracheal or endobronchial lesion is noted.Normal hea rt size.Coronary artery calcifications noted. Atherosclerotic thoracic aorta withouta neurysmal dilatation. Evaluation lung windows demonstrates patchy right lowerlobe lung infiltrate. There is associated small right pleural effusion similarto prior. There is also small left pleural effusion with underlying passiveatelectasis slightly d ecreased from the prior study. No new lung pathology isobserved. Included upper abd ominal organs: No significant pathology is observedwithin the visualized upper abdo wanda organs.IMPRESSION: Small bilateral pleural effusion. Right effusion is sim ilar toprior study. Left effusion slightly decreased in size. Patchy right lungopa cities which may be due to pneumonia similar to previous examinations. 1.8cm nodule along the right lateral wall of the trachea at the level of thethoracic inlet not ob served on the prior study and can be due to a mucous plug.Ct Chest Wo ContResult Date: 12/18/2018Referring Physician: KRYSTIAN MONAE Patient Name: EVELIO CARLIN THIS IS AFINAL REPORT FROM [facility] DATE OF SERVICE: 2018-12-18 01:22:40 IMAGES:555 EXAM: CT CHEST WO CONTRAST HISTORY: .. Right lower lobe atelectasis..TECHNIQUE: Helic al axial imaging from the thoracic inlet through the adrenalglands without contra st. Sagittal and coronal reconstructions were obtained.COMPARISON: CT chest without co ntrast of 12/13/2018. FINDINGS: .. Evaluationremains limited due to lack of IV contrast and patient positioning. The imagedthyroid gland remains atrophic. Th e aorta remains normal in caliber.Atherosclerotic calcifications a re again seen in the aorta. There is againcardiomediastinal shift towards the right. The heart remains normal in size andno pericardial effusion is noted. No obvious lymphadenopathy seen on thisunenhanced scan. No pneumothorax is noted. Since the prior exam there is beenincrease in bilateral pleural effusi ons with associated consolidations. Acalcified granuloma is again seen in th e right lower lobe. The imaged upperabdomen does not demonstrate any gross acute maggy nges. Osteopenia is again noted.Degenerative changes again seen in the imaged spine. Old healed right posteriorlower rib fractures are again seen.IMPRESSION: .. Limited s tudy demonstrating increase in bilateral pleuraleffusions with associated consoli dations with persistent cardiomediastinal shifttowards the right. Stable findings as noted above.. One or more of the followingdose reduction techniques were used: automated exposure control, adjustment ofthe mA and/or kV according to patient size, use of iterative reconstructivetechnique. THIS DOCUMENT H BEEN ELECTRONICALLY SIGNED Kamran Gillette MD 12/18/2018 04:49 GINA Verde Please call [facility] Consult[facility] [phone] with questions. This report was electronically signed by: Tala MENDEZ 12/18/2018 04: 50 AMCta Up Ext Lt W ContResult Date: 12/18/2018History: Arm claudication. FINDI NGS: CTA of the left upper extremity wasperformed helically from level of the shoulder through the fingers after theintravenous administration of 119 cc of Isovue. Sagittal, coronal, and 3-Dreconstructed images obtained on an RealtimeBoard workstation are submitted. Noprior studies are available for comparison. Th e left subclavian artery is widelypatent. It is continuous with a widely patent left axillary artery. The axillaryartery is continuous with a widely patent left bra chial artery. The brachialartery bifurcates into a radial and ulnar artery just belo w the elbow. From thispoint distally streak artifact from patient positioning limits evaluation.However, the ulnar artery appears widely patent to the wrist. The radial a rteryis less well opacified but does appear patent to the wrist as well. Anintraosse ous artery also appears patent although it is poorly visualized aswell. The digital ar teries are not visualized on this study. There arebilateralpleural effusions note d both of which are moderate to large. Theeffusion on the left one is larger th an the right. Bibasilar atelectatic changethroughout much of the lower lobes is seen. There is a significant shift ofmediastinal structures to the right. T he liver is decreased in attenuationcompatible with fatty infiltr ation. The spleen is unremarkable. The adrenalglands are normal in appearance. The pancreas is grossly normal as is thegallbladder. A gastrostomy tube is no mikel in situ. The kidneys are unremarkable.There is a midline abdomina l wall hernia containing large and small bowel aswell as mesentery without eviden ce of obstruction. There is some presacralthickening and possibly some fr ee fluid noted. The patient is status post ORIFof the left hip with metallic hardwa re in situ.IMPRESSION: Patent left upper extremity arterial vessels although eval uationdistally is limited. Bilateral pleural effusions and bibasilar atelectasis.Shif t of mediastinal structures to the right.Ct Abd Pelv Wo ContResult Date: 12/21/2018His tory: ? Maturity of g-tube tract Technique: CT of the abdomen and pelvis wasperforme d from the dome of the diaphragm to the pubic symphysis without oral orintravenous con trast with dose lowering techniques. Sagittal and coronalreconstructions were performe d. Evaluation of solid abdominal viscera iscompromised by by the lack of intraven ous contrast. Evaluation of the bowelloops is compromised lack of oral contrast. All C T scans at this facility areperformed using dose optimization technique as appropria te to a performed exam,to include automated exposure control, adjustment of the mA a nd/or kV accordingto patient size (including appropriate matching first site-specific examinations), or use of iterative reconstruction technique. Comparison: CT scanof the chest performed 12/19/18 Findings: There is a small right pleural effusionw ith adjacent atelectasis. There is minimal left pleural fluid with adjacentatelecta sis. There is a pigtail catheter again identified on the left. The exactlocatio n of this catheter is difficult to ascertain benefits above the diaphragmto below the diaphragm. On today's study the tip appears to be located below thediaphragm. There is a small right pleural effusion with adjacent atelectasis.There is a G-tube i dentified in the stomach. The liver, gallbladder, spleen,pancreas, kidneys an d adrenal glands are unremarkable. No abdominal, pelvic oringuinal lymphadenop athy is identified. No free intraperitoneal fluid is noted.There is a ventral wall h ernia containing loops of what appear to be small bowelhowever are difficult to foll ow. There is mild perirectal stranding andpresacral edema correlate clinically. No dilated loops of bowel are identified.There is mild diverticulosis of the colon. The prostate, bladder and seminalvesicles appear unremarkable. The re are streak artifact obscuring portions ofthe pelvis due to a left hip ORIF. The re is subcutaneous gas identified alongthe right lower anterior pelvic wall.IMPRESS ION: There is a G-tube identified in the stomach. There is a tailcatheter identif ied on the left. The tip appears to be located below thediaphragm although is d ifficult to assess on CT. There is a small residualamount of pleural fluid as well as atelectasis along the left diaphragm. Thereis perirectal stranding and presacr al edema.Ct Thoracentesis Insrt Chest TubeResult Date: 12/19/2018History: Pleura l effusion. PROCEDURE: After being informed of the risks,benefits, and potential alt ernatives procedure informed consent was obtained.The patient was placed on the t able in the [id number] decubitus position.CT scanning was performed locat ion was chosen over the left flank. However, dueto the significant amount of patient motion and breathing motion was difficultto accurately assess a location for percuta neous paracentesis. Therefore, thiswas performed manually. After the chosen reg ion was prepped and draped in thenormal sterile fashion using maximum sterile ba rrier technique a lidocaineneedle was placed in the skin. This appeared to be in good position. Lidocainewas then used to anesthetize the skin and subcutaneous ti ssues in this location.Attempts were made to pass an 8 Congolese pigtail catheter throug h this location.However, patient continuous motion was significant as well as excess ivebreathing during the procedure. The catheter was placed at the same interspa ceas well as marked on the prior CT sequence however, due to the excessive patientmot ion the catheter was far more inferior within the chest that on the priorsequences. Th e catheter appeared to enter the hemiabdomen on the left from theleft chest. The cath eter was then pulled back to position where clear yellowfluid was aspirated. It was then sewn in position However, It appeared tomigrate forward and on the CT scanning appeared to again transgress thediaphragm. It was therefore pulled back to a point where only a clear fluid wasaspirated and respiratory variation was noted within t he tube. It was then sewnin position using 2-0 silk sutures. FINDINGS: Initial CT s debora revealed amoderate left pleural effusion. Attempts to nancy an adequate l ocation forpercutaneous thoracentesis were quite limited due to excessive patient m otionand breathing throughout the procedure. A location that appear to be a safelocat ion was marked. However, when the catheter was placed in this sameinterspace as wel l as marked the catheter appeared to be far more inferiorwithin the hemithorax than that seen previously. It appeared to enter the lefthemithorax inferiorly and transg ress the diaphragm with no evidence pathologicsequela. Therefore, it was pul led back into the pleural space for adequatedrainage. 130 cc of lightly bloo d-tinged fluid was aspirated. The catheter wasattached to a Pleur-evac and wall suc tion.IMPRESSION: Left-sided thoracentesis described above.Xr Chest PortResult Date : 01/10/2019XR CHEST PORT Clinical data: Sepsis Priors: 12/29/2018. Findings: Exam ination iscompromised due to limited inspiration and patient rotation. Heart size isunchanged. Haziness seen at the right lung base can be due to small effu sionwith atelectasis/infiltrate. No confluent left lung process is seen. No evidence of CHF.IMPRESSION: Limited study. Suspect right lung base process which ma y be due tosmall effusion with atelectasis/infiltrate.Xr Chest PortResu lt Date: 12/29/2018History: leukocytosis Technique: Portable chest x-ray 9 11:01 AMComparison: 12/25/2018. FINDINGS: There is a right lower lobe infiltrate o ratelectasis which is increased since prior exam. There is poor inspiration.There is a small left pleural effusion. The exam is rotated. Evaluation of thecardiac silhou ette is limited by projection. The visualized osseous structuresappear unremarkable.IM PRESSION: There is a right lower lobe infiltrate or atelectasis which isincrea sed since prior exam.Xr Chest PortResult Date: 12/18/2018Portable chest x-ray. PRIO R EXAM: 12/12/2018 and 11/25/2018 HISTORY: Pneumonia andpleural effusions FINDINGS: The heart is normal in size. The mediastinum andpulmonary vessels are unremarkable. T here is haziness within the lung basesbilaterally... The bony structures are intact.IMPRESSION: Haziness within the lung bases bilaterally that could repres entsmall pleural effusions and/or subsegmental atelectasis. Similar findin gs wereseen on prior exams.Duplex Upper Ext Venous LeftResult Date: 12/26/2018DUPLEX UPPER EXT VENOUS LEFT Clinical Data: Arm swelling, DVT suspectedFindings: The vis ualized segments of the left upper extremity venous circulationfrom the level of the subclavian vein to the brachial vein is compressible andshows normal phasic flow without an intraluminal thrombus. In addition, theinternal jugular vein and t he basilic vein is also patent. Extremely limitedexam because the patient was unab le to cooperate and this was done in a portablefashion.IMPRESSION: No evidence of deep vein thrombosis within the visualized left upperextremity venous circulation. Limited study.Duplex Lower Ext Venous BilatResult Date: 01/11/2019HISTORY: swel ling to lower extremities TECHNIQUE: Bilateral lower extremityvenous Doppler ultrasound Using real time and color-flow Doppler as well asspectral analysis and ultrasound examination was performed of the lowerextremities bilaterally. FINDINGS: On the right side the common femoral vein,superficial femoral vein along its entire course, as well as popliteal vein allappeared widely patent, were easily c ompressible, showed normal spontaneousflow. The calf veins were not visualized due t o body habitus. On the left sidethe common femoral vein, superficial femoral vein a long its entire course, aswell as popliteal vein all appeared widely patent, were ea sily compressible, andshowed normal spontaneous flow. The calf veins were no t visualized due to bodyhabitus.IMPRESSION: Normal bilateral lower extremity venous Doppler ultrasound with noevidence of deep vein thrombosis.Medications reviewedCurr ent Facility-Administered MedicationsMedication Dose Route Frequen cy phosphorus (K PHOS NEUTRAL) 250 mg tablet 1 Tab 1 Tab Oral BID acetylcysteine (M UCOMYST) 100 mg/mL (10 %) nebulizer solution 400 mg 4 mLNebulization BID RT multivi t-folic acid-herbal 275 (WELLESSE PLUS) oral liquid 30 mL 30 mL Per GTube DAILY bud esonide (PULMICORT) 500 mcg/2 ml nebulizer suspension 500 mcg NebulizationBID RT sodium chloride (NS) flush 5-10 mL 5-10 mL IntraVENous PRN cholestyramine-aspartam e (QUESTRAN LIGHT) packet 4 g 4 g Oral TID WITH MEALS cinacalcet (SENSIPAR) tablet 60 mg 60 mg Oral DAILY lamoTRIgine (LaMICtal) tablet 50 mg 50 mg Per G Tub e BID pantoprazole (PROTONIX) granules for oral suspension 40 mg 40 mg Per G TubeA CB valproic acid (as sodium salt) (DEPAKENE) 250 mg/5 mL (5 mL) oral solution 750mg 750 mg Oral BID ALPRAZolam (XANAX) tablet 0.5 mg 0.5 mg Per G Tube QHS acetamino phen (TYLENOL) solution 650 mg 650 mg Oral Q4H PRN heparin (porcine) injection 5,0 00 Units 5,000 Units SubCUTAneous Q12H influenza vaccine (65 yrs+)(PF) (FLUZONE HIGH-DOSE) injection 0.5 mL0.5 mL IntraMUSCular PRIOR TO DISCHARGE albute rol-ipratropium (DUO-NEB) 2.5 MG-0.5 MG/3 ML 3 mL Nebulization Q6H RTAssessment/Plan: Hospital Problems Date Reviewed: 01/19/2019 Codes Class Noted POA Acute respirat ory failure with hypoxia (HCC) ICD-10-CM: J96.01ICD-9-CM: 518.81 01/10/2019 Unknow n Pneumonia involving right lung ICD-10-CM: J18.9ICD-9-CM: 486 01/10/2019 Unknown Hy ponatremia ICD-10-CM: E87.1ICD-9-CM: 276.1 01/10/2019 YesAssessment: Acute Respirat ory Failure with Hypercapnia and HypoxiaPneumonia likely Aspiration RLLAt electasisDysphagia s/p surgical placed pegMentally challengedSeizureHyperparath yroidLeft ankle and pedal edema- ResolvedHyponatremia, hypophosphatemiaPl an:Na phosphateContinuous O2 NC/PRN Bipap per pulmonaryIV zosyn per IDNebulizersFollow culturesRestraints with mittsContinue with bolus TF for Bao Frankel MDOctober 2018Time: 11:49 PM Name Value Range Interpretation Code Description Data Harriett rce(s) Supporting Document(s ) ID Date Data Source [id number] 01/20/2019 09:09:02 AM EDT [facility] Progress NotePatient: Evelio Carlin Sex: male DOA: 01/10/2019Date of : 1950 Age: 68 y.o. :[id number]:Reyes Carlin is 68 y.o. male .who is Nonverbal; appearing comfortable.Wearing O2 NCHe was seen and examined at bedside on 01/19/19.Pt was for discharge today. Puma roland, the patient's brother in law, Dr Cid,who is currently out of the count ry, called today and requested that pt beevaluated for conversion of the GT to a Jtube in order to possible reduce therisk of recurrent aspiration and frequent hos pital readmissions.He had requested this on the previous admission, however as pt re spiratorystatus was compromised and as the pt was tolerating bolus feedings while in [facility]; It was decided to give the bolus feedings a trial in the snf setting.Puma roland, the patient has been readmitted for aspiration pneumonia, and Flakita is a gain requesting the conversion.Placed on BIPAP for Acute respiratory distress on Saturday. His respiratory statusis now improved.Pt presented from [facility] to the ED, with medical history of Dysphagia ,s/p surgical placement of peg on 11/17/18, se arron intellectual disability,Chronic respiratory failure, large Hiatal Hernia , hyperparathyroid unspecified,personal h/o pulmonary embolus, anxiety disorder, kyp hosis and schizophrenia. Ptis nonverbal at baseline and is unable to provide a hist ory.Per long-term transfer records, at 6 AM, patient was found Hypoxic, with O2 SAT of 87 % on O2 NC 4 LPM, heart fmpn010 BPM, blood pressure of 105/73, respirat oryrate of 30 andaudible wheeze. Nebulizer treatment was given. He was placed on a NRM withimproved O2 SAT to 95 % , his respiratory rate was 30 and he was afeb rile. Thenursing home transfer record reporting that the resident removes yamini al canulaat times. In the ED pt appearing lethargic and having mild respiratory di stress.CXR showing haziness at the right lung base due to small effusion withatelectas is/infiltrate. No confluent left lung process is seen. Sodium .ABG wi th pH 7.46/53/66/38 O2 SAT 95 % on NC 4 LPM.The patient was admitted with encoun ter diagnosis of Acute Respiratory Failurewith hypercapnia and hypoxia, Pne umonia RLL likely Aspiration and Atelectasis.Also, diag of Dysphagia s/p surgical placed peg, COPD, mentally challenged,seizure and hyperparathyroid are pertinent to this visit.The RN reporting that patient is tolerating his bolus tub e feedings. CT scan chest wo contrast dated 01/10/19 showed 1.8 cm nodule along the r ightlateral wall of the trachea at the level of the thoracic inlet not obs on theprio r study and can be due to a mucous plug. Follow up CT chest WC dated 01/15 with fi nding of tracheal nodule no longervisualized.Small left pleural effu ion with underlying passive atelectatic changes similarto prior study.Stable sma ll right pleural effusion. Interval improvement in the rt lower lobelung inf iltrate. No new lung findings seen. CXR dated 01/17/19 limited study, no acute i nfiltrate. 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 Pupils are equalNeck: Supple, symmetrical, no adenopathy, no carotid bruit and no JVD.Back: Symmetric, No CVA tenderness.Lungs: Clear to aus cultation bilaterally. No Wheezing or Rhonchi. No rales.Chest wall: No tender ness or deformity. No Accessory muscle use.Heart: Regular rate and rhythm, n o murmur, or rub.Abdomen: Positive peg intact, non-tender. Not distended. [place] el soundsnormal. No massesExtremities: Extremities normal, atraumatic, No cyano sis. No edema. No clubbingSkin: Warm and dry. No rashes or lesions. Not Anthony dicedLymph nodes: Cervical, supraclavicular normal.Psych: Not agitated .Neurologic: EOMs intact. No facial asymmetry Nonverbal, Alert and AwakeIntake and Out put:Current Shift: No intake/output data recorded.Last three shifts: 01/18 701 - 01/19 1900In: 2260Out: 1250 [Urine:1250]Lab/Data Reviewed:Recent Day s:Recent Labs 01/19/1904WBC 7.4 7.6 5.9HGB 11.0* 11. 5* 11.2*HCT 33.8* 35.4* 34.1*PLT 339 340 299Recent Labs 01/19/1904 3 NA 131* 131* 131*K 4.4 4.4 4.3CL 93* 92* 93*CO2 35* 34* 37*GLU 101 85 78BUN 11 11 8CREA 0.45* 0.37* 0.37*CA 9.7 9.8 9.1MG 1.8 2.0 1.9PHOS 1.8* 2.0* 2.5A LB 1.7* 1.9* 1.8*No results for input(s): PH, PCO2, PO2, HCO3, FIO2 in the last 72 tammy rs.Xr Chest Sngl VResult Date: 12/25/2018Portable chest x-ray. PRIOR EXA M: X-ray 12/18/2018 HISTORY: Pneumonia FINDINGS:The heart is normal in size. Th e mediastinum and pulmonary vessels areunremarkable. There is a small right pleural effusion.. A tube projected overthe left upper quadrant of the abdomen..IMPR ESSION: Small right pleural effusion.Ct Chest Wo ContResult Date: 01/10/2019CT CHEST WO CONT Clinical data: evaluation of pneumonia rt lung. Priors:12/18/2018 Technique: CT s can of the chest was performed from the thoracic inletto below the diaphragm wit hout administration of intravenous contrast. Theacquisition data was reviewed in the axial, sagittal and coronal plane.Utilizing silver holloware assembler algorithm the examination w as performed to optimizeimaging quality by utilizing the lowest possible radiation dose. Findings: Thereis no evidence of pathological lymphadenopathy within the mediastinum, bilateralhilar and bilateral axillary location. There is a 1.8 cm no dule along the rightwall of the trachea at the level of the thoracic inlet (best se en on image 13ofseries 2) not seen on the prior study. This may be due to a mucou s plug. Noadditional endotracheal or endobronchial lesion is noted.Normal hea rt size.Coronary artery calcifications noted. Atherosclerotic thoracic aorta withouta neurysmal dilatation. Evaluation lung windows demonstrates patchy right lowerlobe lung infiltrate. There is associated small right pleural effusion similarto prior. There is also small left pleural effusion with underlying passiveatelectasis slightly d ecreased from the prior study. No new lung pathology isobserved. Included upper abd ominal organs: No significant pathology is observedwithin the visualized upper abdo wanda organs.IMPRESSION: Small bilateral pleural effusion. Right effusion is sim ilar toprior study. Left effusion slightly decreased in size. Patchy right lungopa cities which may be due to pneumonia similar to previous examinations. 1.8cm nodule along the right lateral wall of the trachea at the level of thethoracic inlet not ob served on the prior study and can be due to a mucous plug.Ct Abd Pelv Wo ContResult Da te: 12/21/2018History: ? Maturity of g-tube tract Technique: CT of the abdomen and p aimee wasperformed from the dome of the diaphragm to the pubic symphysis without oral orintravenous contrast with dose lowering techniques. Sagittal and almonte lreconstructions were performed. Evaluation of solid abdominal viscera iscompromised by by the lack of intravenous contrast. Evaluation of the bowelloops is compromi sed lack of oral contrast. All CT scans at this facility areperformed using dose op timization technique as appropriate to a performed exam,to include automated expo sure control, adjustment of the mA and/or kV accordingto patient size (including appr opriate matching first site-specificexaminations), or use of it erative reconstruction technique. Comparison: CT scanof the chest performed 12/19/18 Fin dings: There is a small right pleural effusionwith adjacent atelectasis. There is minimal left pleural fluid with adjacentatelectasis. There is a pigtail catheter again identified on the left. The exactlocation of this catheter is diffic ult to ascertain benefits above the diaphragmto below the diaphragm. On toda y's study the tip appears to be located below thediaphragm. There is a small right ple ural effusion with adjacent atelectasis.There is a G-tube identified in the stomach. T he liver, gallbladder, spleen,pancreas, kidneys and adrenal glands are unremarka ble. No abdominal, pelvic oringuinal lymphadenopathy is identified. No free i ntraperitoneal fluid is noted.There is a ventral wall hernia containing loops of what appear to be small bowelhowever are difficult to follow. There is mild perir ectal stranding andpresacral edema correlate clinically. No dilated loops of bowel ar e identified.There is mild diverticulosis of the colon. The prostate, bladder and mayra inalvesicles appear unremarkable. There are streak artifact obscuring portions ofthe pelvis due to a left hip ORIF. There is subcutaneous gas identified alongthe rig ht lower anterior pelvic wall.IMPRESSION: There is a G-tube identified in the stom ach. There is a tailcatheter identified on the left. The tip appears to be located below thediaphragm although is difficult to assess on CT. There is a small residuala mount of pleural fluid as well as atelectasis along the left diaphragm. Thereis perire ctal stranding and presacral edema.Ct Chest W Cont F/uResult Date: 01/15/2019CT CHEST W CONT F/U Clinical data: R U L NODULE NEAR TRACHEA / BLOOD VESSEL.Priors: 01/10/2019 . Technique: CT scan of the chest was performed from thethoracic inlet to belo w the diaphragm following administration of intravenouscontrast. The acquisition da ta was reviewed in the axial, sagittal and coronalplane. 100 cc of low osmolar iodi nated contrast-isovue 300 was injectedintravenously for the examinatio n. Utilizing silver holloware assembler algorithm theexamination was performed to optimize imaging quality by utilizing the lowestpossible radiation dose. Findings: There is no evidence of pathologicallymphadenopathy within the m ediastinum, bilateral hilar and bilateral axillarylocation. There is no evidence of a central endobronchial or an endotrachealmass. Previously seen nodule along the right lateral wall of the trachea nolonger visualized. This may have repr esented a mucus lung which has dislodged.Coronary artery calcifications noted. Atherosclerotic thoracic aorta withoutaneurysmal dilatation. Elevated l eft hemidiaphragm. There is a small leftpleural effusion with underlying pas sive atelectatic changes similar to priorstudy. Improved previously seen ri ght lower lobe lung infiltrate. There isassociated small right pleural effusio n similar to prior examination. No newlung pathology is observed. Included upper ab dominal organs: No significantpathology is observed within the visualized upper abd ominal organs.IMPRESSION: 1. Previously seen tracheal nodule is no longer visualized. 2.Small left pleural effusion with underlying passive atelectatic changes s imilarto prior study. Stable elevation of the left hemidiaphragm. 3. Stable small right pleural effusion. Interval improvement in the right lower lobe lunginfiltrate. No new lung findings seen.Xr Chest PortResult Date: 01/17/2019Portable chest x-ray. PRIOR EXAM: X-ray 01/10/2019 HISTORY: Hypoxia FINDINGS: Theheart is normal in size. The mediastinum and pulmonary vessels are unremarkable.There is no acute infil trate. The bony structures are intact.IMPRESSION: No acute pulmonary di sease. There is very limited visualization ofthe right lung due to patient position ing.Xr Chest PortResult Date: 01/10/2019XR CHEST PORT Clinical data: Sepsis Priors: 12/29/2018. Findings: Examination iscompromised due to limited inspiration and patient rotation. Heart size isunchanged. Haziness seen at the right lung base can be due to small effusionwith atelectasis/infiltrate. No confluent le ft lung process is seen. Noevidence of CHF.IMPRESSION: Limited study. Suspect right lung base process which may be due tosmall effusion with atelectasis/infilt rate.Xr Chest PortResult Date: 12/29/2018History: leukocytosis Technique : Portable chest x-ray 12/29/2018 11:01 AMComparison: 12/25/2018. FINDINGS: There is a right lower lobe infiltrate oratelectasis which is increased since p rior exam. There is poor inspiration.There is a small left pleural effusion. The exam is rotated. Evaluation of thecardiac silhouette is limited by projection. The visualized osseous structuresappear unremarkable.IMPRESSION: There is a righ t lower lobe infiltrate or atelectasis which isincreased since prior exam.Duplex Uppe r Ext Venous LeftResult Date: 12/26/2018DUPLEX UPPER EXT VENOUS LEFT Clinical Data: Arm swelling, DVT suspectedFindings: The visualized segments of the left upper ex tremity venous circulationfrom the level of the subclavian vein to the brachial vein is compressible andshows normal phasic flow without an intraluminal thrombus. In ad dition, theinternal jugular vein and the basilic vein is also patent. Extremely l imitedexam because the patient was unable to cooperate and this was done in a portabl efashion.IMPRESSION: No evidence of deep vein thrombosis within the visualized left up perextremity venous circulation. Limited study.Duplex Lower Ext Venous BilatResul t Date: 01/11/2019HISTORY: swelling to lower extremities TECHNIQUE: Bilateral lower e xtremityvenous Doppler ultrasound Using real time and color-flow Doppler as well assp ectral analysis and ultrasound examination was performed of the lowerextremities bi laterally. FINDINGS: On the right side the common femoral vein,superficial femoral vein along its entire course, as well as popliteal vein allappeared widely patent , were easily compressible, showed normal spontaneousflow. The calf veins were not visualized due to body habitus. On the left sidethe common femoral vein, superficial femoral vein along its entire course, aswell as popliteal vein all appeared widely pa tent, were easily compressible, andshowed normal spontaneous flow. The calf veins were not visualized due to bodyhabitus.IMPRESSION: Normal bilateral lower extremity venous Doppler ultrasound with noevidence of deep vein thrombosis. Medications reviewedCurrent Facility-Administered MedicationsMedicat ion Dose Route Frequency phosphorus (K PHOS NEUTRAL) 250 mg tablet 1 Tab 1 Tab Oral BID acetylcysteine (MUCOMYST) 100 mg/mL (10 %) nebulizer solution 400 mg 4 mLNebuli zation BID RT multivit-folic acid- herbal 275 (WELLESSE PLUS) oral liquid 30 mL 30 mL Per GTube DAILY budesonide (PULMICORT) 500 mcg/2 ml nebulizer suspension 500 mcg N ebulizationBID RT sodium chloride (NS) flush 5-10 mL 5-10 mL IntraVENous PRN choles tyramine-aspartame (QUESTRAN LIGHT) packet 4 g 4 g Oral TID WITH MEALS cinacalcet ( SENSIPAR) tablet 60 mg 60 mg Oral DAILY lamoTRIgine (LaMICtal) tablet 50 mg 50 mg Per G Tube BID pantoprazole (PROTONIX) granules for oral suspension 40 mg 40 m g Per G TubeACB valproic acid (as sodium salt) (DEPAKENE) 250 mg/5 mL (5 mL) oral solution 750mg 750 mg Oral BID ALPRAZolam (XANAX) tablet 0.5 mg 0.5 mg Per G Tube QHS acetaminophen (TYLENOL) solution 650 mg 650 mg Oral Q4H PRN heparin (porcine) injection 5,000 Units 5,000 Units SubCUTAneous Q12H influenza vaccine 201 9-20 (65 yrs+)(PF) (FLUZONE HIGH-DOSE) injection 0.5 mL0.5 mL IntraMUSCular YUAN OR TO DISCHARGE albuterol-ipratropium (DUO-NEB) 2.5 MG-0.5 MG/3 ML 3 mL Nebul ization Q6H RTAssessment/Plan:Hospital Problems Date Reviewed: 01/18/2019 Codes Class Noted POA Acute respiratory failure with hypoxia (HCC) ICD-10-CM: J9 6.01ICD-9-CM: 518.81 01/10/2019 Unknown Pneumonia involving right lung ICD-10-CM : J18.9ICD-9-CM: 486 01/10/2019 Unknown Hyponatremia ICD-10-CM: E87.1ICD-9-CM: 2 76.1 01/10/2019 YesAssessment: Lung nodule right lateral wall of trachea(not visual ized on f/u ct scan with contrast) Acute Respiratory Failure with Hypercapnia and HypoxiaPneumonia likely Aspiration RLLAtelectasisDysphagia s/p surgical jocelyn riley pegMentally challengedSeizureHyperparathyroidLeft an kle and pedal edema- Resolved(DVT Ruled OUT) Plan: Continuous O2 NC incr to 4 lpm; ni ghtly Bipap per pulmonaryIv zosyn per IDNebulizersFollow culturesRestraints wi th mitts PRNContinue with bolus TF for nowD/W Dr Mansfield, gi will place pt on the endo scheduleand ordrering the KitPulmonary f/Christofer Alvarez 2018Time : 11:18 PM Name Value Range Interpretation Code Description Data Harriett rce(s) Supporting Document(s ) ID Date Data Source [id number] 01/20/2019 07:19:53 AM EDT [facility] Bedside and Verbal shift change report g iven to Allyson Calhoun RN (oncomingnurse) by Ronald Montoya RN (offgoing mason se). Report included the following information SBAR, Kardex, MARand Recent Results. Name Value Range Interpretation Code Description Data Harriett rce(s) Supporting Document(s ) ID Date Data Source [id number] 01/20/2019 07:41:18 AM EDT [facility] Name Value Range Interpretation Description Data Sup porting Code Source(s) Document(s ) Sodium 133 136-145 Below low normal [facility] - Good [Moles/volume] mmol/L [facility] in Serum or Hospital Plasma Potassium 4.3 3.5-5.1 [facility] - Good [Moles/volume] mmol/L [facility] in Serum or Hospital Plasma Chloride 94 98-107 Below low normal [facility] - Good [Moles/volume] mmol/L [facility] in Serum or Hospital Plasma Carbon 36 21-32 Above high normal [facility] - Good dioxide, total mmol/L [facility] [Moles/volume] Hospital in Serum or Plasma Anion gap in 7 mmol/L 10-20 Below low normal [facility] - Go od Serum or [facility] Plasma Hospital Glucose 75 mg/dL 74-106 [facility] - Good [Mass/volume] [facility] in Serum or Hospital Plasma Urea nitrogen 12 mg/dL 7-18 [facility] - Good [Mass/volume] [facility] in Serum or Hospital Plasma Creatinine 0.32 0.70-1.3 Below low normal [facility] - Good [Mass/volume] mg/dL 0 [facility] in Serum or Hospital Plasma Glomerular >60 [facility] - Good filtration [facility] rate/1.73 sq M Hospital predicted among blacks [Volume Rate/Area] in Serum or Plasma by Creatinine-bas ed formula (MDRD) Glomerular >60 [facility] - Good filtration [facility] rate/1.73 sq M Hospital predicted among non-blacks [Volume Rate/Area] in Serum or Plasma by Creatinine-bas ed formula (MDRD) Calcium 9.5 8.5-10.1 [facility] - Good [Mass/volume] mg/dL [facility] in Serum or Hospital Plasma Phosphate 2.3 2.5-4.9 Below low normal [facility] - Good [Mass/volume] mg/dL [facility] in Serum or Hospital Plasma Albumin 1.5 g/dL 3.5-4.7 Below low normal [facility] - Good [Mass/volume] [facility] in Serum or Hospital Plasma by Bromocresol purple (BCP) dye binding method ID Date Data Source [id number] 01/20/2019 07:41:18 AM EDT [facility] Name Value Range Interpretation Description Data Sup porting Code Source(s) Document(s ) Magnesium 2.0 mg/dL 1.6-2.6 [facility] - Good [Mass/volume] [facility] in Serum or Hospital Plasma ID Date Data Source [id number] 01/20/2019 07:11:48 AM EDT [facility] Name Value Range Interpretation Description Data Sup porting Code Source(s) Document(s ) Leukocytes 9.0 K/uL 4.8-10.6 [facility] - [#/volume] in Good Blood by [facility] Automated count [facility] Erythrocytes 3.14 4.70-6.0 Below low normal [facility] - [#/volume] in M/uL 0 Good Blood by [facility] Automated count [facility] Hemoglobin 10.2 14.0-18. Below low normal [facility] - [Mass/volume] in g/dL 0 [facility] Blood [facility] Hematocrit 31.7 % 42.0-52. Below low normal [facility] - [Volume 0 Good Fraction] of [facility] Blood by Hospital Automated count Erythrocyte mean 101.0 FL 81.0-94. Above high normal [facility] - corpuscular 0 Good volume [Entitic [facility] volume] by Hospital Automated count Erythrocyte mean 32.5 PG 27.0-35. [facility] - corpuscular 0 Good hemoglobin [facility] [Entitic mass] Hospital by Automated count Erythrocyte mean 32.2 30.7-37. [facility] - corpuscular g/dL 3 Good hemoglobin [facility] concentration [facility] [Mass/volume] by Automated count Erythrocyte 16.0 % 11.5-14. Above high normal [facility] - distribution 0 Good width [Ratio] by [facility] Automated count Hospital Platelets 333 K/uL 130-400 [facility] - [#/volume] in [facility] Blood by [facility] Automated count Hospital Platelet mean 8.7 FL 9.2-11.8 Below low normal [facility] - volume [Entitic Good volume] in [facility] by Automated Hospital count Segmented 62 % 48.0-72. [facility] - neutrophils/100 0 [facility] leukocytes in [facility] Lymphocytes/100 21 % 18.0-40. [facility] - leukocytes in 0 [facility] Monocytes/100 16 % 2.0-12.0 Above high normal [facility] - leukocytes in [facility] Eosinophils/100 1 % 0.0-7.0 [facility] - leukocytes in [facility] Basophils/100 0 % 0.0-3.0 [facility] - leukocytes in [facility] Segmented 5.3 K/UL 1.5-6.6 [facility] - neutrophils Good [#/volume] in [facility] Lymphocytes 1.9 K/UL 1.5-3.5 [facility] - [#/volume] in [facility] Monocytes 1.4 K/UL 0.0-1.0 Above high normal [facility] - [#/volume] in [facility] Eosinophils 0.1 K/UL 0.0-0.7 [facility] - [#/volume] in [facility] Basophils 0.0 K/UL 0.0-0.1 [facility] - [#/volume] in [facility] Differential [facility] - cell count [facility] Immature 2 % 0.0-2.0 [facility] - granulocytes/100 Good leukocytes in [facility] by Hospital Automated count ID Date Data Source [id number] 01/19/2019 11:12:10 PM EDT [facility] - [facility] Problem: Falls - Risk ofGoal: *Absence o f FallsDescriptionDocument Samra Fall Risk and appropriate interventions in the jhon wsheet.Outcome: Progressing Towards GoalNote:Fall Risk Interventions:Mobilit y Interventions: Bed/chair exit alarmMentation Interventions: Bed/chair exit alarm, Door open when patient unattendedMedication Interventions: Bed/ chair exit alarmElimination Interventions: Bed/chair exit alarm, Toileting schedule /hourlyroundsHistory of Falls Interventions: Bed/chair exit alarm, Door open when pat ientunattendedProblem: Pressure Injury - Risk ofGoal: *Prevention of pressure injuryDe scriptionDocument Butch Scale and appropriate interventions in the flowshe et.Outcome: Progressing Towards GoalNote:Pressure Injury Interventions:S ensory Interventions: Float heels, Turn and reposition approx. every two hours(ariel ws and wedges if needed), Pressure redistribution bed/mattress (bed type),M onitor skin under medical devicesMoisture Interventions: Absorbent underpads, Appl y protective barrier, creamsand emollients, Internal/External urinary devices, Check for incontinence [id number] and as neededActivity Interventions: Pressure r edistribution bed/mattress(bed type)Mobility Interventions: Float heels, HOB 30 degre es or less, Suspension boots,Turn and reposition approx. every two hours(ariel w and wedges), Pressureredistribution bed/mattress (bed type)Nutrition Interve ntions: Document food/fluid/supplement intakeFriction and Shear Interventions: Apply protective barrier, creams andemollients, HOB 30 degrees or less, F oam dressings/transparent film/skinsealantsProblem: Tissue Perfusi on - Cardiopulmonary, AlteredGoal: *Absence of hypoxiaOutcome: Progressing Towards G oal Name Value Range Interpretation Code Description Data Harriett rce(s) Supporting Document(s ) ID Date Data Source [id number] 01/19/2019 07:20:58 PM EDT [facility] Bedside and Verbal shift change report carol pham to Nelson Montoya RN (oncomingnurse) by SHIRA KNOX RN (offgoing nurse). Rep ort included the followinginformation SBAR, Kardex, MAR and Recent Results. Name Value Range Interpretation Code Description Data Harriett rce(s) Supporting Document(s ) ID Date Data Source [id number] 01/19/2019 02:48:11 PM EDT [facility] Progress NotePatient: Evelio Carlin Sex: male DOA: 01/10/2019Date of : 1950 Age: 68 y.o. :[id number]:Reyes Carlin is 68 y.o. male . who is Nonverbal; appearing comfortable.Wearing O2 NCHe was seen and examined at bedside on 01/18/19.Placed on BIPAP for Acute respir atory distress on Saturday.Pt presented from [facility] to the ED, with medical history of Dysphagia ,s/p surgical placement of peg on 11/17/18, severe intellectual disability, Chronic respiratory failure, large Hiatal Hernia, hyperparathyroid unspecified,pe rsonal h/o pulmonary embolus, anxiety disorder, kyphosis and schizophrenia. Pt is nonverbal at baseline and is unable to provide a history.Per [facility], at 6 AM, patient was found Hypoxic, with O2SAT of 87 % on O2 NC 4 L PM, heart tnnd656 BPM, blood pressure of 105/73, respiratoryrate of 30 andaudible wheeze. Nebulizer treatment was given. He was placed on a NRM withimproved O2 SAT to 95 % , his respiratory rate was 30 and he was afebrile. Thenursing home transfer r ecord reporting that the resident removes nasal canulaat times. In the ED pt appe aring lethargic and having mild respiratory distress.CXR showing haziness at the rig ht lung base due to small effusion withatelectasis/infiltrate. No confluen t left lung process is seen. Sodium cdzyb280.ABG with pH 7.46/53/66/38 O2 SA T 95 % on NC 4 LPM.The patient was admitted with encounter diagnosis of Acute Respir atory Failurewith hypercapnia and hypoxia, Pneumonia RLL likely Aspiration and Ate lectasis.Also, diag of Dysphagia s/p surgical placed peg, COPD, mentally challenged,se izure and hyperparathyroid are pertinent to this visit.The RN reporting that patient is tolerating his bolus tube feedings. CT scan chest wo contrast dated 01/10/19 dianna wed 1.8 cm nodule along the rightlateral wall of the trachea at the level of the thora cic inlet not obs on theprior study and can be due to a mucous plug. Follow up CT ch est WC dated 01/15 with finding of tracheal nodule no longervisualized.Small left pl eural effuion with underlying passive atelectatic changes similarto prior stud y.Stable small right pleural effusion. Interval improvement in the rt lower lob elung infiltrate. No new lung findings seen. CXR dated 01/17/19 limited study, no acu te infiltrate. 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 Pupils are equalThroat:Neck: Supple, symmetrical, no adenopathy, no carotid bruit and no JVD.Lungs: Clear to auscultation bilat erally. No Wheezing or Rhonchi. No rales.Chest wall: No tenderness or defo rmity. No Accessory muscle use.Heart: Regular rate and rhythm, no murmur, or rub.Abdomen: Soft, non-tender. Not distended. Bowel sounds normal. No mass esExtremities: Extremities normal, atraumatic, No cyanosis. No edema. No c lubbingSkin: Texture, turgor normal. No rashes or lesions. Not JaundicedLymph n odes: Cervical, supraclavicular normal.Psych: Good insight. Not depressed. Not anxi ous or agitated.Neurologic: EOMs intact. No facial asymmetry. No aphasia or slurred speech.Normal strength, Alert and oriented X 3.Intake and Output:Current Shift: No intake/output data recorded.Last three shifts: 01/17 701 - 01/18 1900In: 2980 [I.V.:100]Out: 2250 [Urine:2250]Lab/Data Reviewed:Recent Days:Recent Labs 01/18/1904WBC 7.6 5.9 6.7HGB 11.5* 11.2* 11.0*HCT 35.4* 34.1* 34.1*PLT 340 299 266Recent Labs 01/18/1904NA 131* 131* 13 3*K 4.4 4.3 4.2CL 92* 93* 95*CO2 34* 37* 37*GLU 85 78 119*BUN 11 8 10CREA 0.37* 0 .37* 0.52*CA 9.8 9.1 9.5MG 2.0 1.9 2.1PHOS 2.0* 2.5 2.5ALB 1.9* 1.8* 1.8*No results for input(s): PH, PCO2, PO2, HCO3, FIO2 in the last 72 hours.Xr Chest Sngl VResult Date: 12/25/2018Portable chest x-ray. PRIOR EXAM: X-ray 12/18/2018 HISTORY: Pneumonia FINDINGS:The heart is normal in size. The mediastinum and pulmonary vessels areunr emarkable. There is a small right pleural effusion.. A tube projected overthe left upper quadrant of the abdomen..IMPRESSION: Small right pleural effusion.Ct Chest Wo ContResult Date: 01/10/2019CT CHEST WO CONT Clinical data: evaluation of pneumonia r t lung. Priors:12/18/2018 Technique: CT scan of the chest was performed from the thoraci c inletto below the diaphragm without administration of intravenous contrast. Theacquisition data was reviewed in the axial, sagittal and coronal plane.Utiliz ing silver holloware assembler algorithm the examination was performed to optimizeimaging quality by utilizing the lowest possible radiation dose. Findings: Thereis no evidence of p athological lymphadenopathy within the mediastinum, bilateralhilar and bilatera l axillary location. There is a 1.8 cm nodule along the rightwall of the trache a at the level of the thoracic inlet (best seen on image 13ofseries 2) not seen on the prior study. This may be due to a mucous plug. Noadditional endotracheal or endo bronchial lesion is noted.Normal heart size.Coronary artery calcifications note d. Atherosclerotic thoracic aorta withoutaneurysmal dilatation. Evaluation lung windows demonstrates patchy right lowerlobe lung infiltrate. There is asso ciated small right pleural effusion similarto prior. There is also small left pleural effusion with underlying passiveatelectasis slightly decreased from the prior study. No new lung pathology isobserved. Included upper abdominal organs: No significant p athology is observedwithin the visualized upper abdominal organs.IMPRESSION: Small bilateral pleural effusion. Right effusion is similar toprior study. Left effusion slightly decreased in size. Patchy right lungopacities which may be due to pneumo freddy similar to previous examinations. 1.8cm nodule along the right lateral wall of t he trachea at the level of thethoracic inlet not observed on the prior study and can be due to a mucous plug.Ct Abd Pelv Wo ContResult Date: 12/21/2018History: ? Matu rity of g-tube tract Technique: CT of the abdomen and pelvis wasperformed from the dome of the diaphragm to the pubic symphysis without oral orintravenous contrast with dose lowering techniques. Sagittal and coronalreconstructions were performed. E valuation of solid abdominal viscera iscompromised by by the lack of intraven ous contrast. Evaluation of the bowelloops is compromised lack of oral contrast. All C T scans at this facility areperformed using dose optimization technique as appropria te to a performed exam,to include automated exposure control, adjustment of the mA a nd/or kV accordingto patient size (including appropriate matching first site-specific examinations), or use of iterative reconstruction technique. Comparison: CT scanof the chest performed 12/19/18 Findings: There is a small right pleural effusionw ith adjacent atelectasis. There is minimal left pleural fluid with adjacentatelecta sis. There is a pigtail catheter again identified on the left. The exactlocatio n of this catheter is difficult to ascertain benefits above the diaphragmto below the diaphragm. On today's study the tip appears to be located below thediaphragm. There is a small right pleural effusion with adjacent atelectasis.There is a G-tube i dentified in the stomach. The liver, gallbladder, spleen,pancreas, kidneys an d adrenal glands are unremarkable. No abdominal, pelvic oringuinal lymphadenop athy is identified. No free intraperitoneal fluid is noted.There is a ventral wall h ernia containing loops of what appear to be small bowelhowever are difficult to foll ow. There is mild perirectal stranding andpresacral edema correlate clinically. No dilated loops of bowel are identified.There is mild diverticulosis of the colon. The prostate, bladder and seminalvesicles appear unremarkable. The re are streak artifact obscuring portions ofthe pelvis due to a left hip ORIF. The re is subcutaneous gas identified alongthe right lower anterior pelvic wall.IMPRESS ION: There is a G-tube identified in the stomach. There is a tailcatheter identif ied on the left. The tip appears to be located below thediaphragm although is d ifficult to assess on CT. There is a small residualamount of pleural fluid as well as atelectasis along the left diaphragm. Thereis perirectal stranding and presacr al edema.Ct Chest W Cont F/uResult Date: 01/15/2019CT CHEST W CONT F/U Clinical da ta: R U L NODULE NEAR TRACHEA / BLOOD VESSEL.Priors: 01/10/2019. Technique: CT scan of the chest was performed from thethoracic inlet to below the diaphragm following administration of intravenouscontrast. The acquisition da ta was reviewed in the axial, sagittal and coronalplane. 100 cc of low osmolar iodi nated contrast-isovue 300 was injectedintravenously for the examinatio n. Utilizing silver holloware assembler algorithm theexamination was performed to optimize imaging quality by utilizing the lowestpossible radiation dose. Findings: There is no evidence of pathologicallymphadenopathy within the m ediastinum, bilateral hilar and bilateral axillarylocation. There is no evidence of a central endobronchial or an endotrachealmass. Previously seen nodule along the right lateral wall of the trachea nolonger visualized. This may have repr esented a mucus lung which has dislodged.Coronary artery calcifications noted. Atherosclerotic thoracic aorta withoutaneurysmal dilatation. Elevated l eft hemidiaphragm. There is a small leftpleural effusion with underlying pas sive atelectatic changes similar to priorstudy. Improved previously seen ri ght lower lobe lung infiltrate. There isassociated small right pleural effusio n similar to prior examination. No newlung pathology is observed. Included upper ab dominal organs: No significantpathology is observed within the visualized upper abd ominal organs.IMPRESSION: 1. Previously seen tracheal nodule is no longer visualized. 2.Small left pleural effusion with underlying passive atelectatic changes s imilarto prior study. Stable elevation of the left hemidiaphragm. 3. Stable small right pleural effusion. Interval improvement in the right lower lobe lunginfiltrate. No new lung findings seen.Xr Chest PortResult Date: 01/17/2019Portable chest x-ray. PRIOR EXAM: X-ray 01/10/2019 HISTORY: Hypoxia FINDINGS: Theheart is normal in size. The mediastinum and pulmonary vessels are unremarkable.There is no acute infil trate. The bony structures are intact.IMPRESSION: No acute pulmonary di sease. There is very limited visualization ofthe right lung due to patient position ing.Xr Chest PortResult Date: 01/10/2019XR CHEST PORT Clinical data: Sepsis Priors: 12/29/2018. Findings: Examination iscompromised due to limited inspiration and patient rotation. Heart size isunchanged. Haziness seen at the right lung base can be due to small effusionwith atelectasis/infiltrate. No confluent le ft lung process is seen. Noevidence of CHF.IMPRESSION: Limited study. Suspect right lung base process which may be due tosmall effusion with atelectasis/infilt rate.Xr Chest PortResult Date: 12/29/2018History: leukocytosis Technique : Portable chest x-ray 12/29/2018 11:01 AMComparison: 12/25/2018. FINDINGS: There is a right lower lobe infiltrate oratelectasis which is increased since p rior exam. There is poor inspiration.There is a small left pleural effusion. The exam is rotated. Evaluation of thecardiac silhouette is limited by projection. The visualized osseous structuresappear unremarkable.IMPRESSION: There is a righ t lower lobe infiltrate or atelectasis which isincreased since prior exam.Duplex Uppe r Ext Venous LeftResult Date: 12/26/2018DUPLEX UPPER EXT VENOUS LEFT Clinical Data: Arm swelling, DVT suspectedFindings: The visualized segments of the left upper ex tremity venous circulationfrom the level of the subclavian vein to the brachial vein is compressible andshows normal phasic flow without an intraluminal thrombus. In ad dition, theinternal jugular vein and the basilic vein is also patent. Extremely l imitedexam because the patient was unable to cooperate and this was done in a portabl efashion.IMPRESSION: No evidence of deep vein thrombosis within the visualized left up perextremity venous circulation. Limited study.Duplex Lower Ext Venous BilatResul t Date: 01/11/2019HISTORY: swelling to lower extremities TECHNIQUE: Bilateral lower e xtremityvenous Doppler ultrasound Using real time and color-flow Doppler as well assp ectral analysis and ultrasound examination was performed of the lowerextremities bi laterally. FINDINGS: On the right side the common femoral vein,superficial femoral vein along its entire course, as well as popliteal vein allappeared widely patent , were easily compressible, showed normal spontaneousflow. The calf veins were not visualized due to body habitus. On the left sidethe common femoral vein, superficial femoral vein along its entire course, aswell as popliteal vein all appeared widely pa tent, were easily compressible, andshowed normal spontaneous flow. The calf veins were not visualized due to bodyhabitus.IMPRESSION: Normal bilateral lower extremity venous Doppler ultrasound with noevidence of deep vein thrombosis. Medications reviewedCurrent Facility-Administered MedicationsMedicat ion Dose Route Frequency acetylcysteine (MUCOMYST) 100 mg/mL (10 %) nebulizer so lution 400 mg 4 mLNebulization BID RT multivit-folic acid-herbal 275 (WELLESSE PLUS) oral liquid 30 mL 30 mL Per GTube DAILY budesonide (PULMICORT) 500 mcg/2 ml nebulizer suspension 500 mcg NebulizationBID RT sodium chloride (NS) flush 5-10 mL 5-10 mL IntraVENous PRN cholestyramine-aspartame (QUESTRAN LIGHT ) packet 4 g 4 g Oral TID WITH MEALS cinacalcet (SENSIPAR) tablet 60 mg 60 m g Oral DAILY lamoTRIgine (LaMICtal) tablet 50 mg 50 mg Per G Tube BID pantoprazol e (PROTONIX) granules for oral suspension 40 mg 40 mg Per G TubeACB valproic acid ( as sodium salt) (DEPAKENE) 250 mg/5 mL (5 mL) oral solution 750mg 750 mg Oral BID AL PRAZolam (XANAX) tablet 0.5 mg 0.5 mg Per G Tube QHS acetaminophen (TYLENOL) soluti on 650 mg 650 mg Oral Q4H PRN heparin (porcine) injection 5,000 Units 5,000 U nits SubCUTAneous Q12H influenza vaccine (65 yrs+)(PF) (FLUZONE HIGH-DOSE ) injection 0.5 mL0.5 mL IntraMUSCular PRIOR TO DISCHARGE albuterol-ipratropium (DUO -NEB) 2.5 MG-0.5 MG/3 ML 3 mL Nebulization Q6H RTAssessment/Plan:Hospital Problems Date Reviewed: 01/18/2019 Codes Class Noted POA Acute respiratory failure with hypoxia (HCC) ICD-10-CM: J96.01ICD-9-CM: 518.81 01/10/2019 Unknown Pneumonia invo lving right lung ICD-10-CM: J18.9ICD-9-CM: 486 01/10/2019 Unknown Hyponatremia ICD- 10-CM: E87.1ICD-9-CM: 276.1 01/10/2019 YesAssessment: Lung nodule right latera l wall of trachea(not visualized on f/u ct scan with contrast) Acute Respiratory F ailure with Hypercapnia and HypoxiaPneumonia likely Aspiration RLLAtelectasisDysphagi a s/p surgical placed pegMentally challengedSeizureHyperparathyroidLeft an kle and pedal edema- Resolved(DVT Ruled OUT)Plan: Continuous O2 NC incr to 4 lpm ; nightly Bipap per pulmonaryIv zosyn is no longer an active medicationNebulizersFol low culturesRestraints with mitts PRNContinue with bolus TF for [employer] ctober 2018Time: 11:52 PM Name Value Range Interpretation Code Description Data Harriett rce(s) Supporting Document(s ) ID Date Data Source [id number] 01/19/2019 02:24:05 PM EDT [facility] Progress NotePatient: Evelio Carlin Sex: male DOA: 01/10/2019Date of : 1950 Age: 68 y.o. :[id number]:Reyes Carlin is 68 y.o. male Who is more awake and alert. He is appearingcomfortable. He is pulling off his nasal canula. The RN is requestingrestraints.Will order Mitts for restraints.Pt Presented to the ED from [facility] with medical history of Dysphagia ,s/p surgical placement of peg on 11/17/18, severe intellectual disability,Chronic respiratory failure, large Hiatal Hernia, hyperparathyroid unspecified,personal h/ o pulmonary embolus, anxiety disorder, kyphosis and schizophrenia. Ptis nonverb al at baseline and is unable to provide a history.Per long-term transfer record s, at 6 AM, patient was found Hypoxic, with O2SAT of 87 % on O2 NC 87 % on 4 LPM, h eart rated 111 BPM, Blood Pressure of 105/73, respiratoryrate of 30 andaudible wheeze. Nebulizer treatment was given. He was placed on a NRM withimproved O2 SAT to 95 % , his respiratory rate was 30 and he was afebrile. Thenursing home transfer r ecord reporting that the resident removes nasal canulaat times. In the ED pt appe aring lethargic and having mild respiratory distress.CXR showing haziness at the rig ht lung base due to small effusion withatelectasis/infiltrate. No confluen t left lung process is seen. 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 Pupils are equalNeck: Supple, symmetrical, no adenopathy, no carotid bruit and no JVD.Lungs: Clear to auscultation bilaterally. No Wheezing o r Rhonchi. No rales.Chest wall: No Accessory muscle use.Heart: Regular ra te and rhythm, no murmur, or rubAbdomen: Positive Peg in place, soft non-tender. Not distended. Bowel soundsnormal. No massesExtremities: Extremities normal, a traumatic, No cyanosis. No edema. No clubbingSkin: Warm and dry. No rashe s or lesions. Not JaundicedLymph nodes: Cervical, supraclavicular normal.Psych: Not anxious or agitated.Neurologic: EOMs intact. No facial asymmetry. No aphasia or slurred speech.Generalized weakness, non ambulatory at baseline,, Alert and Awake .Intake and Output:Current Shift: 01/19 701 - 01/19 1900In: 540Out: -Last three shif ts: 01/17 1901 - 01/19 700In: 1760Out: 1999 [Urine:1999]Lab/Data Reviewed:Recent Day s:Recent Labs 01/19/19045WBC 7.4 7.6 5.9HGB 11.0* 11. 5* 11.2*HCT 33.8* 35.4* 34.1*PLT 339 340 299Recent Labs 01/19/1904 3 NA 131* 131* 131*K 4.4 4.4 4.3CL 93* 92* 93*CO2 35* 34* 37*GLU 101 85 78BUN 11 11 8CREA 0.45* 0.37* 0.37*CA 9.7 9.8 9.1MG 1.8 2.0 1.9PHOS 1.8* 2.0* 2.5A LB 1.7* 1.9* 1.8*No results for input(s): PH, PCO2, PO2, HCO3, FIO2 in the last 72 tammy rs.CULTURE, BLOOD [[id number]] (Order [id number])MicrobiologyDate: 01/10/2019 De partment: [facility] Released By/Authorizing: Wes Romero MD (a uto-released)Specimen Information: Blood Component Value Flag Ref Range Units Sta tusSpecial Requests: PreliminaryNO SPECIAL REQUESTSCulture result: NO GROWT H 3 DAYSCULTURE, BLOOD [[id number]] (Order [id number])MicrobiologyDate: 01/10/2019 De partment: [facility] Released By/Authorizing: Wes Romero MD (a uto-released)Specimen Information: Blood Component Value Flag Ref Range Units Sta tusSpecial Requests: PreliminaryNO SPECIAL REQUESTSCulture result: NO GROWT H 3 DAYSCULTURE, URINE [[id number]] (Order [id number])MicrobiologyDate: 01/10/2019 De partment: [facility] Released By/Authorizing: Wes Romero MD (a uto-released)Specimen Information: Clean catch; Urine Component Value Flag Ref Ra nge Units StatusSpecial Requests: FinalNO SPECIAL REQUESTSCulture result: NO GROWTH 1 DAY FinalXr Chest Sngl VResult Date: 12/25/2018Portable chest x- ray. PRIOR EXAM: X-ray 12/18/2018 HISTORY: Pneumonia FINDINGS:The heart is normal i n size. The mediastinum and pulmonary vessels areunremarkable. There is a small right pleural effusion.. A tube projected overthe left upper quadrant of the abdomen..IMPR ESSION: Small right pleural effusion.Ct Chest Wo ContResult Date: 01/10/2019CT CHEST WO CONT Clinical data: evaluation of pneumonia rt lung. Priors:12/18/2018 Technique: CT s can of the chest was performed from the thoracic inletto below the diaphragm wit hout administration of intravenous contrast. Theacquisition data was reviewed in the axial, sagittal and coronal plane.Utilizing silver holloware assembler algorithm the examination w as performed to optimizeimaging quality by utilizing the lowest possible radiation dose. Findings: Thereis no evidence of pathological lymphadenopathy within the mediastinum, bilateralhilar and bilateral axillary location. There is a 1.8 cm no dule along the rightwall of the trachea at the level of the thoracic inlet (best se en on image 13ofseries 2) not seen on the prior study. This may be due to a mucou s plug. Noadditional endotracheal or endobronchial lesion is noted.Normal hea rt size.Coronary artery calcifications noted. Atherosclerotic thoracic aorta withouta neurysmal dilatation. Evaluation lung windows demonstrates patchy right lowerlobe lung infiltrate. There is associated small right pleural effusion similarto prior. There is also small left pleural effusion with underlying passiveatelectasis slightly d ecreased from the prior study. No new lung pathology isobserved. Included upper abd ominal organs: No significant pathology is observedwithin the visualized upper abdo wanda organs.IMPRESSION: Small bilateral pleural effusion. Right effusion is sim ilar toprior study. Left effusion slightly decreased in size. Patchy right lungopa cities which may be due to pneumonia similar to previous examinations. 1.8cm nodule along the right lateral wall of the trachea at the level of thethoracic inlet not ob served on the prior study and can be due to a mucous plug.Ct Chest Wo ContResult Date: 12/18/2018Referring Physician: KRYSTIAN MONAE Patient Name: EVELIO CARLIN THIS IS AFINAL REPORT FROM [facility] DATE OF SERVICE: 2018-12-18 01:22:40 IMAGES:555 EXAM: CT CHEST WO CONTRAST HISTORY: .. Right lower lobe atelectasis..TECHNIQUE: Helic al axial imaging from the thoracic inlet through the adrenalglands without contra st. Sagittal and coronal reconstructions were obtained.COMPARISON: CT chest without co ntrast of 12/13/2018. FINDINGS: .. Evaluationremains limited due to lack of IV contrast and patient positioning. The imagedthyroid gland remains atrophic. Th e aorta remains normal in caliber.Atherosclerotic calcifications a re again seen in the aorta. There is againcardiomediastinal shift towards the right. The heart remains normal in size andno pericardial effusion is noted. No obvious lymphadenopathy seen on thisunenhanced scan. No pneumothorax is noted. Since the prior exam there is beenincrease in bilateral pleural effusi ons with associated consolidations. Acalcified granuloma is again seen in th e right lower lobe. The imaged upperabdomen does not demonstrate any gross acute maggy nges. Osteopenia is again noted.Degenerative changes again seen in the imaged spine. Old healed right posteriorlower rib fractures are again seen.IMPRESSION: .. Limited s tudy demonstrating increase in bilateral pleuraleffusions with associated consoli dations with persistent cardiomediastinal shifttowards the right. Stable findings as noted above.. One or more of the followingdose reduction techniques were used: automated exposure control, adjustment ofthe mA and/or kV according to patient size, use of iterative reconstructivetechnique. THIS DOCUMENT H BEEN ELECTRONICALLY SIGNED Kamran Gillette MD 12/18/2018 04:49 GINA Verde Please call [facility] [phone] with questions. This report was electronically signed by: Tala MENDEZ 12/18/2018 04: 50 AMCta Up Ext Lt W ContResult Date: 12/18/2018History: Arm claudication. FINDI NGS: CTA of the left upper extremity wasperformed helically from level of the shoulder through the fingers after theintravenous administration of 119 cc of Isovue. Sagittal, coronal, and 3-Dreconstructed images obtained on an RealtimeBoard workstation are submitted. Noprior studies are available for comparison. Th e left subclavian artery is widelypatent. It is continuous with a widely patent left axillary artery. The axillaryartery is continuous with a widely patent left bra chial artery. The brachialartery bifurcates into a radial and ulnar artery just belo w the elbow. From thispoint distally streak artifact from patient positioning limits evaluation.However, the ulnar artery appears widely patent to the wrist. The radial a rteryis less well opacified but does appear patent to the wrist as well. Anintraosse ous artery also appears patent although it is poorly visualized aswell. The digital ar teries are not visualized on this study. There arebilateralpleural effusions note d both of which are moderate to large. Theeffusion on the left one is larger th an the right. Bibasilar atelectatic changethroughout much of the lower lobes is seen. There is a significant shift ofmediastinal structures to the right. T he liver is decreased in attenuationcompatible with fatty infiltr ation. The spleen is unremarkable. The adrenalglands are normal in appearance. The pancreas is grossly normal as is thegallbladder. A gastrostomy tube is no mikel in situ. The kidneys are unremarkable.There is a midline abdomina l wall hernia containing large and small bowel aswell as mesentery without eviden ce of obstruction. There is some presacralthickening and possibly some fr ee fluid noted. The patient is status post ORIFof the left hip with metallic hardwa re in situ.IMPRESSION: Patent left upper extremity arterial vessels although eval uationdistally is limited. Bilateral pleural effusions and bibasilar atelectasis.Shif t of mediastinal structures to the right.Ct Abd Pelv Wo ContResult Date: 12/21/2018His tory: ? Maturity of g-tube tract Technique: CT of the abdomen and pelvis wasperforme d from the dome of the diaphragm to the pubic symphysis without oral orintravenous con trast with dose lowering techniques. Sagittal and coronalreconstructions were performe d. Evaluation of solid abdominal viscera iscompromised by by the lack of intraven ous contrast. Evaluation of the bowelloops is compromised lack of oral contrast. All C T scans at this facility areperformed using dose optimization technique as appropria te to a performed exam,to include automated exposure control, adjustment of the mA a nd/or kV accordingto patient size (including appropriate matching first site-specific examinations), or use of iterative reconstruction technique. Comparison: CT scanof the chest performed 12/19/18 Findings: There is a small right pleural effusionw ith adjacent atelectasis. There is minimal left pleural fluid with adjacentatelecta sis. There is a pigtail catheter again identified on the left. The exactlocatio n of this catheter is difficult to ascertain benefits above the diaphragmto below the diaphragm. On today's study the tip appears to be located below thediaphragm. There is a small right pleural effusion with adjacent atelectasis.There is a G-tube i dentified in the stomach. The liver, gallbladder, spleen,pancreas, kidneys an d adrenal glands are unremarkable. No abdominal, pelvic oringuinal lymphadenop athy is identified. No free intraperitoneal fluid is noted.There is a ventral wall h ernia containing loops of what appear to be small bowelhowever are difficult to foll ow. There is mild perirectal stranding andpresacral edema correlate clinically. No dilated loops of bowel are identified.There is mild diverticulosis of the colon. The prostate, bladder and seminalvesicles appear unremarkable. The re are streak artifact obscuring portions ofthe pelvis due to a left hip ORIF. The re is subcutaneous gas identified alongthe right lower anterior pelvic wall.IMPRESS ION: There is a G-tube identified in the stomach. There is a tailcatheter identif ied on the left. The tip appears to be located below thediaphragm although is d ifficult to assess on CT. There is a small residualamount of pleural fluid as well as atelectasis along the left diaphragm. Thereis perirectal stranding and presacr al edema.Ct Thoracentesis Insrt Chest TubeResult Date: 12/19/2018History: Pleura l effusion. PROCEDURE: After being informed of the risks,benefits, and potential alt ernatives procedure informed consent was obtained.The patient was placed on the t able in the [id number] decubitus position.CT scanning was performed locat ion was chosen over the left flank. However, dueto the significant amount of patient motion and breathing motion was difficultto accurately assess a location for percuta neous paracentesis. Therefore, thiswas performed manually. After the chosen reg ion was prepped and draped in thenormal sterile fashion using maximum sterile ba rrier technique a lidocaineneedle was placed in the skin. This appeared to be in good position. Lidocainewas then used to anesthetize the skin and subcutaneous ti ssues in this location.Attempts were made to pass an 8 Congolese pigtail catheter throug h this location.However, patient continuous motion was significant as well as excess ivebreathing during the procedure. The catheter was placed at the same interspa ceas well as marked on the prior CT sequence however, due to the excessive patientmot ion the catheter was far more inferior within the chest that on the priorsequences. Th e catheter appeared to enter the hemiabdomen on the left from theleft chest. The cath eter was then pulled back to position where clear yellowfluid was aspirated. It was then sewn in position However, It appeared tomigrate forward and on the CT scanning appeared to again transgress thediaphragm. It was therefore pulled back to a point where only a clear fluid wasaspirated and respiratory variation was noted within t he tube. It was then sewnin position using 2-0 silk sutures. FINDINGS: Initial CT s debora revealed amoderate left pleural effusion. Attempts to nancy an adequate l ocation forpercutaneous thoracentesis were quite limited due to excessive patient m otionand breathing throughout the procedure. A location that appear to be a safelocat ion was marked. However, when the catheter was placed in this sameinterspace as wel l as marked the catheter appeared to be far more inferiorwithin the hemithorax than that seen previously. It appeared to enter the lefthemithorax inferiorly and transg ress the diaphragm with no evidence pathologicsequela. Therefore, it was pul led back into the pleural space for adequatedrainage. 130 cc of lightly bloo d-tinged fluid was aspirated. The catheter wasattached to a Pleur-evac and wall suc tion.IMPRESSION: Left-sided thoracentesis described above.Xr Chest PortResult Date : 01/10/2019XR CHEST PORT Clinical data: Sepsis Priors: 12/29/2018. Findings: Exam ination iscompromised due to limited inspiration and patient rotation. Heart size isunchanged. Haziness seen at the right lung base can be due to small effu sionwith atelectasis/infiltrate. No confluent left lung process is seen. No evidence of CHF.IMPRESSION: Limited study. Suspect right lung base process which ma y be due tosmall effusion with atelectasis/infiltrate.Xr Chest PortResu lt Date: 12/29/2018History: leukocytosis Technique: Portable chest x-ray 9 11:01 AMComparison: 12/25/2018. FINDINGS: There is a right lower lobe infiltrate o ratelectasis which is increased since prior exam. There is poor inspiration.There is a small left pleural effusion. The exam is rotated. Evaluation of thecardiac silhou ette is limited by projection. The visualized osseous structuresappear unremarkable.IM PRESSION: There is a right lower lobe infiltrate or atelectasis which isincrea sed since prior exam.Xr Chest PortResult Date: 12/18/2018Portable chest x-ray. PRIO R EXAM: 12/12/2018 and 11/25/2018 HISTORY: Pneumonia andpleural effusions FINDINGS: The heart is normal in size. The mediastinum andpulmonary vessels are unremarkable. T here is haziness within the lung basesbilaterally... The bony structures are intact.IMPRESSION: Haziness within the lung bases bilaterally that could repres entsmall pleural effusions and/or subsegmental atelectasis. Similar findin gs wereseen on prior exams.Duplex Upper Ext Venous LeftResult Date: 12/26/2018DUPLEX UPPER EXT VENOUS LEFT Clinical Data: Arm swelling, DVT suspectedFindings: The vis ualized segments of the left upper extremity venous circulationfrom the level of the subclavian vein to the brachial vein is compressible andshows normal phasic flow without an intraluminal thrombus. In addition, theinternal jugular vein and t he basilic vein is also patent. Extremely limitedexam because the patient was unab le to cooperate and this was done in a portablefashion.IMPRESSION: No evidence of deep vein thrombosis within the visualized left upperextremity venous circulation. Limited study.Duplex Lower Ext Venous BilatResult Date: 01/11/2019HISTORY: swel ling to lower extremities TECHNIQUE: Bilateral lower extremityvenous Doppler ultrasound Using real time and color-flow Doppler as well asspectral analysis and ultrasound examination was performed of the lowerextremities bilaterally. FINDINGS: On the right side the common femoral vein,superficial femoral vein along its entire course, as well as popliteal vein allappeared widely patent, were easily c ompressible, showed normal spontaneousflow. The calf veins were not visualized due t o body habitus. On the left sidethe common femoral vein, superficial femoral vein a long its entire course, aswell as popliteal vein all appeared widely patent, were ea sily compressible, andshowed normal spontaneous flow. The calf veins were no t visualized due to bodyhabitus.IMPRESSION: Normal bilateral lower extremity venous Doppler ultrasound with noevidence of deep vein thrombosis.Medications reviewedCurr ent Facility-Administered MedicationsMedication Dose Route Frequen cy acetylcysteine (MUCOMYST) 100 mg/mL (10 %) nebulizer solution 400 mg 4 mLNebuli zation BID RT multivit-folic acid- herbal 275 (WELLESSE PLUS) oral liquid 30 mL 30 mL Per GTube DAILY budesonide (PULMICORT) 500 mcg/2 ml nebulizer suspension 500 mcg N ebulizationBID RT sodium chloride (NS) flush 5-10 mL 5-10 mL IntraVENous PRN choles tyramine-aspartame (QUESTRAN LIGHT) packet 4 g 4 g Oral TID WITH MEALS cinacalcet ( SENSIPAR) tablet 60 mg 60 mg Oral DAILY lamoTRIgine (LaMICtal) tablet 50 mg 50 mg Per G Tube BID pantoprazole (PROTONIX) granules for oral suspension 40 mg 40 m g Per G TubeACB valproic acid (as sodium salt) (DEPAKENE) 250 mg/5 mL (5 mL) oral solution 750mg 750 mg Oral BID ALPRAZolam (XANAX) tablet 0.5 mg 0.5 mg Per G Tube QHS acetaminophen (TYLENOL) solution 650 mg 650 mg Oral Q4H PRN heparin (porcine) injection 5,000 Units 5,000 Units SubCUTAneous Q12H influenza vaccine 201 9-20 (65 yrs+)(PF) (FLUZONE HIGH-DOSE) injection 0.5 mL0.5 mL IntraMUSCular YUAN OR TO DISCHARGE albuterol-ipratropium (DUO-NEB) 2.5 MG-0.5 MG/3 ML 3 mL Nebul ization Q6H RTAssessment/Plan:Hospital Problems Date Reviewed: 01/18/2019 Codes Class Noted POA Acute respiratory failure with hypoxia (HCC) ICD-10-CM: J9 6.01ICD-9-CM: 518.81 01/10/2019 Unknown Pneumonia involving right lung ICD-10-CM : J18.9ICD-9-CM: 486 01/10/2019 Unknown Hyponatremia ICD-10-CM: E87.1ICD-9-CM: 2 76.1 01/10/2019 YesAssessment: Acute Respiratory Failure with Hypercapnia and HypoxiaPneumonia likely Aspiration RLLAtelectasisDysphagia s/p surgical jocelyn riley pegMentally challengedSeizureHyperparathyroidLeft an kle and pedal edema- ResolvedPlan:Continuous O2 NC/PRN Bipap per pulmonaryIV zosyn pe r IDNebulizersFollow culturesRestraints with mittsContinue with bolus TF for Bao Frankel MDOctober 2018Time: 11:49 PM Name Value Range Interpretation Code Description Data Harriett rce(s) Supporting Document(s ) ID Date Data Source [id number] 01/19/2019 01:44:16 PM EDT [facility] ID Progress Note01/19/2019Subjective:Siri ent with mental retardation,recurrent aspiration pneumonia.on BIPAPNo NEW even t overnightNon verbal,unable to provide history.No events over nightAfebrileWbc within normal limitCultures negativeObjective:Vitals:Patient Vitals for the past 24 hrs: BP Temp Pulse Resp SpO2 Tvezrf44/07/19 0850 - - - - 96 % - 0738 - - - 20 - -01/19/19 0737 123/67 97.5 F (36.4 C) 97 (!) 33 99 % -01/19/19 05 35 - - - - - 56.5 kg (124 lb 8 oz)01/19/19 0506 - - - - 99 % -01/19/19 0435 122/75 97.2 F (36.2 C) 92 16 99 % -01/19/19 0129 - - - - 99 % -01/19/19127 - - - - 99 % - 01/18/192153 - - - - 99 % -01/18/192011 - - - - 96 % -01/18/19 1942 131/75 97.2 F ( 36.2 C) (!) 103 18 98 % -01/18/19 1540 100/62 97.3 F (36.3 C) (!) 109 18 95 % -Tmax: Temp (24hrs), Av.3 F (36.3 C), Min:97.2 F (36.2 C), Max:97.5 F(36.4 C)Physical Exam:General: Lethargic non verbalNeck: Supple, symmetrical, trachea midline, no adenopathLungs: Decrease breath sounds at bases.Heart: Regular r ate and rhythm, S1, S2 normalAbdomen: Soft, non-tender. Bowel sounds normal. No mass es, No organomegaly.+feeding tubeBack: No CVA tenderness.Extremities: Chronic lymp hedema.Pulses: 2+ and symmetric all extremities.Skin: Skin color, texture, t urgor normal. No rashes or lesionsCurrent Facility-Administered MedicationsMedicat ion Dose Route Frequency acetylcysteine (MUCOMYST) 100 mg/mL (10 %) nebulizer so lution 400 mg 4 mLNebulization BID RT multivit-folic acid-herbal 275 (WELLESSE PLUS) oral liquid 30 mL 30 mL Per GTube DAILY budesonide (PULMICORT) 500 mcg/2 ml nebulizer suspension 500 mcg NebulizationBID RT sodium chloride (NS) flush 5-10 mL 5-10 mL IntraVENous PRN cholestyramine-aspartame (QUESTRAN LIGHT ) packet 4 g 4 g Oral TID WITH MEALS cinacalcet (SENSIPAR) tablet 60 mg 60 m g Oral DAILY lamoTRIgine (LaMICtal) tablet 50 mg 50 mg Per G Tube BID pantoprazol e (PROTONIX) granules for oral suspension 40 mg 40 mg Per G TubeACB valproic acid ( as sodium salt) (DEPAKENE) 250 mg/5 mL (5 mL) oral solution 750mg 750 mg Oral BID AL PRAZolam (XANAX) tablet 0.5 mg 0.5 mg Per G Tube QHS acetaminophen (TYLENOL) soluti on 650 mg 650 mg Oral Q4H PRN heparin (porcine) injection 5,000 Units 5,000 U nits SubCUTAneous Q12H influenza vaccine 2019- (65 yrs+)(PF) (FLUZONE HIGH-DOSE ) injection 0.5 mL0.5 mL IntraMUSCular PRIOR TO DISCHARGE albuterol-ipratropium (DUO -NEB) 2.5 MG-0.5 MG/3 ML 3 mL Nebulization Q6H RTLabs:Recent Labs 01/18/1904WBC 7.4 7.6 5.9HGB 11.0* 11.5* 11.2*PLT 339 340 299BUN 11 1 1 8CREA 0.45* 0.37* 0.37*Cultures:Lab ResultsComponent Value Date/Time Culture result: NO GROWTH 1 DAY 01/10/2019 08:58 AM Culture result: NO GROWTH 5 DAYS 019 07:55 AM Culture result: NO GROWTH 5 DAYS 01/10/2019 07:40 AMRadiology:No results found.Assessment: Aspiration pneumonia. Acute hypoxic respiratory failure. Dysp hagia Pleural effusion. . COPD Plan:1. Continue IV zosyn.Monica Gomez MDOctob er 7 PM Name Value Range Interpretation Code Description Data Harriett rce(s) Supporting Document(s ) ID Date Data Source [id number] 01/19/2019 01:38:28 PM EDT [facility] Problem: Falls - Risk ofGoal: *Absence o f FallsDescriptionDocument Samra Fall Risk and appropriate interventions in the jhon wsheet.Outcome: Progressing Towards GoalNote:Fall Risk Interventions:Mobilit y Interventions: Bed/chair exit alarmMentation Interventions: Adequate s leep, hydration, pain controlMedication Interventions: Bed/chair exit alarmElimi nation Interventions: Bed/chair exit alarmHistory of Falls Interventions: Bed /chair exit alarmProblem: Pressure Injury - Risk ofGoal: *Prevention of pressure inj uryDescriptionDocument Butch Scale and appropriate interventions in the flowshe et.Outcome: Progressing Towards GoalNote:Pressure Injury Interventions:S ensory Interventions: Float heels, Keep linens dry and wrinkle-free, Turn andrep osition approx. every two hours (pillows and wedges if needed), Check visualcues for painMoisture Interventions: Absorbent underpads, Apply protective barrier, cre amsand emollients, Check for incontinence Q2 hours and as neededActivity Intervention s: Pressure redistribution bed/mattress(bed type)Mobility Interventions: Float heels , Pressure redistribution bed/mattress (bedtype), Turn and reposition approx. e very two hours(pillow and wedges)Nutrition Interventions: Document food/fluid/suppl ement intakeFriction and Shear Interventions: Apply protective barrier, creams andemol lients, Foam dressings/transparent film/skin sealantsProblem: Tissue Perfusion - Card iopulmonary, AlteredGoal: *Optimize tissue perfusionOutcome: Progressing Towards Go alGoal: *Absence of hypoxiaOutcome: Progressing Towards GoalProblem: Nutriti on DeficitGoal: *Optimize nutritional statusDescriptionPt to progress towards meeting >80% nutrient needs within 3-7 daysOutcome: Progressing Towards Goal Name Value Range Interpretation Code Description Data Harriett rce(s) Supporting Document(s ) ID Date Data Source [id number] 01/19/2019 12:48:35 PM EDT [facility] Progress NoteMID-[facility] ,[facility].Krystian Monae MD., F.C.C.P.Stella Hamilton MD., F.C.C.P. 9W 1 [facility] [address] [place] [id number] [place] [phone]: Evelio Carlin Sex: male DOA: 01/10/2019Da te of : 1950 Age: 68 y.o. LOS: LOS: 9 daysSubjective:Mr. Gayla beltran is a 68 y.o. year old male who is being seen for ACUTE COPD,ASPIRATION PNEUMONI A . CHEST XRAY 01/17/2017 IS FAILY CLEAR THOUGH ROTATED FILM .Objective:Vital Si gns:Patient Vitals for the past 24 hrs: BP Temp Pulse Resp SpO2 Kvuubn28/07/19 0850 - - - - 96 % -01/19/19 0738 - - - 20 - -01/19/19 0737 123/67 97.5 F (36.4 C) 97 (!) 33 99 % -01/19/19 0535 - - - - - 56.5 kg (124 lb 8 oz)01/19/19 0506 - - - - 99 % -01/19/19 0435 122/75 97.2 F (36.2 C) 92 16 99 % -01/19/19 0129 - - - - 99 % -10/31 - - - - 99 % -01/18/194 - - - - 99 % -01/18/192011 - - - - 96 % - 10/01 1942 131/75 97.2 F (36.2 C) (!) 103 18 98 % -01/18/19 1540 100/62 97.3 F (36.3 C) (!) 109 18 95 % -Pulse OX:SpO2 Readings from Last 6 Encounters:01/19/19 96%12/30 96%11/27/18 91%09/26/15 96%@LASTSAO2(6)@Physical Exam:CLINICALLY FURTHER BETTER , LESS S O B , BREATHING ISCOMFORTABLE General: LETHARG IC USUAL .cooperative, no distress, appearsstated age. Head: No rmocephalic, without obvious abnormality, atraumatic. Eyes: Conjuncti vae/corneas clear. PERRL, EOMs intact. Nose: Nares normal. No drainage or sinus tenderness Throat: Lips, mucosa, and tongue normal Nec k: Supple, symmetrical, trachea midline, no adenopathy,thyroid: no enlargem ent/tenderness/nodules, no carotid bruit and no JVD. Lungs: WHEEZING AN D RHONCHI ARE MUCH LESS , IMPROVEDAERATION IN BOTH LUNGS to auscu ltation bilaterally. Chest Wall: No tenderness or deformity. Heart : Regular rate and rhythm, S1, S2 normal, no murmur, click,rub or gallop. Abdom en: Soft, non-tender. Bowel sounds normal. No masses, No organomegaly. Extremitie s: Extremities normal, atraumatic, no cyanosis or edema. Pulses: 4+ bilaterally. Skin: Skin color, texture, turgor normal. No rashes or les ions. Neurologic: CNII-XII intact. No focal motor or sensory deficit.Intake an d Output:Last three shifts: 01/17 1901 - 01/19 700In: 1859Out: 1999 [Urine:1999] Lab Results:Recent Results (from the past 24 hour(s))RENAL FUNCTION PANEL Collection Time: 01/19/19 4:46 AMResult Value Ref Range Sodium 131 (L) 136 - 145 mmol/L Potassiu m 4.4 3.5 - 5.1 mmol/L Chloride 93 (L) 98 - 107 mmol/L CO2 35 (H) 21 - 32 mmol/L Ani on gap 7 (L) 10 - 20 mmol/L Glucose 101 74 - 106 mg/dL BUN 11 7 - 18 mg/dL Creatinine 0.45 (L) 0.70 - 1.30 mg/dL GFR est AA >60 >60 ml/min/1.73m2 GFR est non-AA >60 >60 ml/min/1.73m2 Calcium 9.7 8.5 - 10.1 mg/dL Phosphorus 1.8 (L) 2.5 - 4.9 mg/dL Album in 1.7 (L) 3.5 - 4.7 g/dLMAGNESIUM Collection Time: 01/19/19 4:46 AMResult Value Ref Range Magnesium 1.8 1.6 - 2.6 mg/dLCBC WITH AUTOMATED DIFF Collection Time: 01/19/19 4:46 AMResult Value Ref Range WBC 7.4 4.8 - 10.6 K/uL RBC 3.34 (L) 4.70 - 6.00 M/uL HGB 11.0 (L) 14.0 - 18.0 g/dL HCT 33.8 (L) 42.0 - 52.0 % MCV 101.2 (H) 81.0 - 94.0 FL MCH 32.9 27.0 - 35.0 PG MCHC 32.5 30.7 - 37.3 g/dL RDW 16.1 (H) 11.5 - 14.0 % JOCELYN TELET 339 130 - 400 K/uL MPV 9.1 (L) 9.2 - 11.8 FL NEUTROPHILS 64 48 - 72 % BAND NE UTROPHILS 3 (H) <1 % LYMPHOCYTES 17 (L) 18 - 40 % MONOCYTES 15 (H) 2 - 12 % EOSINOPHI LS 1 0 - 7 % RBC COMMENTS 2+ANISOCYTOSIS RBC COMMENTS 2+MACROCYTOSIS PLATELET ESTIMAT E ADEQUATE DF MANUALABG:No results for input(s): PH, PCO2, PO2, HCO3, FIO2 in t he last 72 hours.Recent Glucose Results:Lab ResultsComponent Value Date/Time GLU 101 01/19/2019 04:46 AM@LABAPCYTOINTERPRETATION@CULTURESAll M icro Results Procedure Component Value Units Date/Time CULTURE, BLOOD [[id number]] Col lected: 01/10/19 0755 Order Status: Completed Specimen: Blood Updated: 07/01 Special Requests: NO SPECIAL REQUESTS Culture result: NO GROWTH 5 DA YS CULTURE, BLOOD [[id number]] Collected: 01/10/19 0740 Order Status: Completed S pecimen: Blood Updated: 01/15/19837 Special Requests: NO SPECIAL REQUESTS C ulture result: NO GROWTH 5 DAYS CULTURE, URINE [[id number]] Collected: 01/10/19 0 858 Order Status: Completed Specimen: Urine from Clean catch Updated: Special Requests: NO SPECIAL REQUESTS Culture result: NO GROWTH 1 DAY CULTURE, BLOOD [[id number]] Collected: 01/10/19 0800 Order Status: Canceled Specimen: Blood Images:@IMAGESENCORD@Xr Chest Sngl VResult Date: 12/25/2018Portable chest x-ray. YUAN OR EXAM: X-ray 12/18/2018 HISTORY: Pneumonia FINDINGS:The heart is normal in size. Th e mediastinum and pulmonary vessels areunremarkable. There is a small right pleural effusion.. A tube projected overthe left upper quadrant of the abdomen..IMPR ESSION: Small right pleural effusion.Ct Chest Wo ContResult Date: 01/10/2019CT CHEST WO CONT Clinical data: evaluation of pneumonia rt lung. Priors:12/18/2018 Technique: CT s can of the chest was performed from the thoracic inletto below the diaphragm wit hout administration of intravenous contrast. Theacquisition data was reviewed in the axial, sagittal and coronal plane.Utilizing silver holloware assembler algorithm the examination w as performed to optimizeimaging quality by utilizing the lowest possible radiation dose. Findings: Thereis no evidence of pathological lymphadenopathy within the mediastinum, bilateralhilar and bilateral axillary location. There is a 1.8 cm no dule along the rightwall of the trachea at the level of the thoracic inlet (best se en on image 13ofseries 2) not seen on the prior study. This may be due to a mucou s plug. Noadditional endotracheal or endobronchial lesion is noted.Normal hea rt size.Coronary artery calcifications noted. Atherosclerotic thoracic aorta withouta neurysmal dilatation. Evaluation lung windows demonstrates patchy right lowerlobe lung infiltrate. There is associated small right pleural effusion similarto prior. There is also small left pleural effusion with underlying passiveatelectasis slightly d ecreased from the prior study. No new lung pathology isobserved. Included upper abd ominal organs: No significant pathology is observedwithin the visualized upper abdo wanda organs.IMPRESSION: Small bilateral pleural effusion. Right effusion is sim ilar toprior study. Left effusion slightly decreased in size. Patchy right lungopa cities which may be due to pneumonia similar to previous examinations. 1.8cm nodule along the right lateral wall of the trachea at the level of thethoracic inlet not ob served on the prior study and can be due to a mucous plug.Ct Abd Pelv Wo ContResult Da te: 12/21/2018History: ? Maturity of g-tube tract Technique: CT of the abdomen and p aimee wasperformed from the dome of the diaphragm to the pubic symphysis without oral orintravenous contrast with dose lowering techniques. Sagittal and almonte lreconstructions were performed. Evaluation of solid abdominal viscera iscompromised by by the lack of intravenous contrast. Evaluation of the bowelloops is compromi sed lack of oral contrast. All CT scans at this facility areperformed using dose op timization technique as appropriate to a performed exam,to include automated expo sure control, adjustment of the mA and/or kV accordingto patient size (including appr opriate matching first site-specificexaminations), or use of it erative reconstruction technique. Comparison: CT scanof the chest performed 12/19/18 Fin dings: There is a small right pleural effusionwith adjacent atelectasis. There is minimal left pleural fluid with adjacentatelectasis. There is a pigtail catheter again identified on the left. The exactlocation of this catheter is diffic ult to ascertain benefits above the diaphragmto below the diaphragm. On bert henson's study the tip appears to be located below thediaphragm. There is a small right ple ural effusion with adjacent atelectasis.There is a G-tube identified in the stomach. T he liver, gallbladder, spleen,pancreas, kidneys and adrenal glands are unremarka ble. No abdominal, pelvic oringuinal lymphadenopathy is identified. No free i ntraperitoneal fluid is noted.There is a ventral wall hernia containing loops of what appear to be small bowelhowever are difficult to follow. There is mild perir ectal stranding andpresacral edema correlate clinically. No dilated loops of bowel ar e identified.There is mild diverticulosis of the colon. The prostate, bladder and mayra inalvesicles appear unremarkable. There are streak artifact obscuring portions ofthe pelvis due to a left hip ORIF. There is subcutaneous gas identified alongthe rig ht lower anterior pelvic wall.IMPRESSION: There is a G-tube identified in the stom ach. There is a tailcatheter identified on the left. The tip appears to be located below thediaphragm although is difficult to assess on CT. There is a small residuala mount of pleural fluid as well as atelectasis along the left diaphragm. Thereis perire ctal stranding and presacral edema.Ct Chest W Cont F/uResult Date: 01/15/2019CT CHEST W CONT F/U Clinical data: R U L NODULE NEAR TRACHEA / BLOOD VESSEL.Priors: 01/10/2019 . Technique: CT scan of the chest was performed from thethoracic inlet to belo w the diaphragm following administration of intravenouscontrast. The acquisition da ta was reviewed in the axial, sagittal and coronalplane. 100 cc of low osmolar iodi nated contrast-isovue 300 was injectedintravenously for the examinatio n. Utilizing silver holloware assembler algorithm theexamination was performed to optimize imaging quality by utilizing the lowestpossible radiation dose. Findings: There is no evidence of pathologicallymphadenopathy within the m ediastinum, bilateral hilar and bilateral axillarylocation. There is no evidence of a central endobronchial or an endotrachealmass. Previously seen nodule along the right lateral wall of the trachea nolonger visualized. This may have repr esented a mucus lung which has dislodged.Coronary artery calcifications noted. Atherosclerotic thoracic aorta withoutaneurysmal dilatation. Elevated l eft hemidiaphragm. There is a small leftpleural effusion with underlying pas sive atelectatic changes similar to priorstudy. Improved previously seen ri ght lower lobe lung infiltrate. There isassociated small right pleural effusio n similar to prior examination. No newlung pathology is observed. Included upper ab dominal organs: No significantpathology is observed within the visualized upper abd ominal organs.IMPRESSION: 1. Previously seen tracheal nodule is no longer visualized. 2.Small left pleural effusion with underlying passive atelectatic changes s imilarto prior study. Stable elevation of the left hemidiaphragm. 3. Stable small right pleural effusion. Interval improvement in the right lower lobe lunginfiltrate. No new lung findings seen.Xr Chest PortResult Date: 01/17/2019Portable chest x-ray. PRIOR EXAM: X-ray 01/10/2019 HISTORY: Hypoxia FINDINGS: Theheart is normal in size. The mediastinum and pulmonary vessels are unremarkable.There is no acute infil trate. The bony structures are intact.IMPRESSION: No acute pulmonary di sease. There is very limited visualization ofthe right lung due to patient position ing.Xr Chest PortResult Date: 01/10/2019XR CHEST PORT Clinical data: Sepsis Priors: 12/29/2018. Findings: Examination iscompromised due to limited inspiration and patient rotation. Heart size isunchanged. Haziness seen at the right lung base can be due to small effusionwith atelectasis/infiltrate. No confluent le ft lung process is seen. Noevidence of CHF.IMPRESSION: Limited study. Suspect right lung base process which may be due tosmall effusion with atelectasis/infilt rate.Xr Chest PortResult Date: 12/29/2018History: leukocytosis Technique : Portable chest x-ray 12/29/2018 11:01 AMComparison: 12/25/2018. FINDINGS: There is a right lower lobe infiltrate oratelectasis which is increased since p rior exam. There is poor inspiration.There is a small left pleural effusion. The exam is rotated. Evaluation of thecardiac silhouette is limited by projection. The visualized osseous structuresappear unremarkable.IMPRESSION: There is a righ t lower lobe infiltrate or atelectasis which isincreased since prior exam.Duplex Uppe r Ext Venous LeftResult Date: 12/26/2018DUPLEX UPPER EXT VENOUS LEFT Clinical Data: Arm swelling, DVT suspectedFindings: The visualized segments of the left upper ex tremity venous circulationfrom the level of the subclavian vein to the brachial vein is compressible andshows normal phasic flow without an intraluminal thrombus. In ad dition, theinternal jugular vein and the basilic vein is also patent. Extremely l imitedexam because the patient was unable to cooperate and [facility].IMPRESSION: No evidence of deep vein thrombosis within the visualized left up perextremity venous circulation. Limited study.Duplex Lower Ext Venous BilatResul t Date: 01/11/2019HISTORY: swelling to lower extremities TECHNIQUE: Bilateral lower e xtremityvenous Doppler ultrasound Using real time and color-flow Doppler as well assp ectral analysis and ultrasound examination was performed of the lowerextremities bi laterally. FINDINGS: On the right side the common femoral vein,superficial femoral vein along its entire course, as well as popliteal vein allappeared widely patent , were easily compressible, showed normal spontaneousflow. The calf veins were not visualized due to body habitus. On the left sidethe common femoral vein, superficial femoral vein along its entire course, aswell as popliteal vein all appeared widely pa tent, were easily compressible, andshowed normal spontaneous flow. The calf veins were not visualized due to bodyhabitus.IMPRESSION: Normal bilateral lower extremity venous Doppler ultrasound with noevidence of deep vein thrombosis. Medications:Current Facility-Administered MedicationsMedication Dose Route Frequen cy acetylcysteine (MUCOMYST) 100 mg/mL (10 %) nebulizer solution 400 mg 4 mLNebuli zation BID RT multivit-folic acid- herbal 275 (WELLESSE PLUS) oral liquid 30 mL 30 mL Per GTube DAILY budesonide (PULMICORT) 500 mcg/2 ml nebulizer suspension 500 mcg N ebulizationBID RT sodium chloride (NS) flush 5-10 mL 5-10 mL IntraVENous PRN choles tyramine-aspartame (QUESTRAN LIGHT) packet 4 g 4 g Oral TID WITH MEALS cinacalcet ( SENSIPAR) tablet 60 mg 60 mg Oral DAILY lamoTRIgine (LaMICtal) tablet 50 mg 50 mg Per G Tube BID pantoprazole (PROTONIX) granules for oral suspension 40 mg 40 m g Per G TubeACB valproic acid (as sodium salt) (DEPAKENE) 250 mg/5 mL (5 mL) oral solution 750mg 750 mg Oral BID ALPRAZolam (XANAX) tablet 0.5 mg 0.5 mg Per G Tube QHS acetaminophen (TYLENOL) solution 650 mg 650 mg Oral Q4H PRN heparin (porcine) injection 5,000 Units 5,000 Units SubCUTAneous Q12H influenza vaccine 201 9-20 (65 yrs+)(PF) (FLUZONE HIGH-DOSE) injection 0.5 mL0.5 mL IntraMUSCular YUAN OR TO DISCHARGE albuterol-ipratropium (DUO-NEB) 2.5 MG-0.5 MG/3 ML 3 mL Nebul ization Q6H RTActive Problems: Acute respiratory failure with hypoxia (HCC) ( 01/10/2019) Pneumonia involving right lung (01/10/2019) Hyponatremia (01/10/2019)Ass essment:1. ACUTE HYPERCAPNIC AND HYPOXIC RESPIRATORY FAILURE2. ATELECTASIS R U L RESOLVED3. PNEUMONIA R L L AND L L L RESOLVED4. AC COPD BETTER 5. MENTAL RETARDATION6. CAT SCAN CHEST WITH I V CONTRAST RULED OUT LUNG NODULE7. DYSPH AGIA8. EPILEPSY 9. METABOLIC ENCEPHALOPATHY 10. RT .PLEURAL EFFUSION RESOLVEDPLAN : AGREE WITH I V ZOSYNDUO NEB Q 4 H BIPAP FOR RESPIRATORY . DISTRESS BUDES ONIDE 500 MCG VIA MINI NEB Q 1 2 H MUCOMYST VIA MINI NEB BID PROGNOSIS IS G UARDED . OK FOR D/C PLANNING , DISCUSSED WITH DR ERINIER Monae MD F.C.C.P .January 19, 201912:43 PM Name Value Range Interpretation Code Description Data [facility] Supporting Document(s ) ID Date Data Source [id number] 01/19/2019 11:18:30 AM EDT [facility] YUAN completed. Name Value Range Interpretation Code Description Data [facility] Supporting Document(s ) ID Date Data Source [id number] 01/19/2019 10:09:18 AM EDT [facility] Per MD anticipated discharge today for p t, [place] liaison aware. Name Value Range Interpretation Code Description Data [facility] rce(s) Supporting Document(s ) ID Date Data Source [id number] 01/19/2019 06:48:53 AM EDT [facility] Bedside and Verbal shift change report g iven to Devang Knox RN (oncoming nurse)by Gaston Starr RN (offgoing nurse). Report include d the following information SBAR,Kardex and MAR. Name Value Range Interpretation Code Description Data [facility] rce(s) Supporting Document(s ) ID Date Data Source [id number] 01/19/2019 09:33:51 AM EDT [facility] Name Value Range Interpretation Description Data Sup porting Code Source(s) Document(s ) Leukocytes 7.4 K/uL 4.8-10.6 [facility] - [#/volume] in [facility] Erythrocytes 3.34 4.70-6.0 Below low normal [facility] - [#/volume] in M/uL 0 [facility] Hemoglobin 11.0 14.0-18. Below low normal [facility] - [Mass/volume] in g/dL 0 Good Blood [facility] Hematocrit 33.8 % 42.0-52. Below low normal [facility] - [Volume 0 Good Fraction] of [facility] Blood by Hospital Automated count Erythrocyte mean 101.2 FL 81.0-94. Above high normal [facility] - corpuscular 0 Good volume [Entitic [facility] volume] by Hospital Automated count Erythrocyte mean 32.9 PG 27.0-35. [facility] - corpuscular 0 Good hemoglobin [facility] [Entitic mass] Hospital by Automated count Erythrocyte mean 32.5 30.7-37. [facility] - corpuscular g/dL 3 [facility] hemoglobin [facility] concentration [facility] [Mass/volume] by Automated count Erythrocyte 16.1 % 11.5-14. Above high normal [facility] - distribution 0 Good width [Ratio] by [facility] Platelets 339 K/uL 130-400 [facility] - [#/volume] in [facility] Blood by [facility] Platelet mean 9.1 FL 9.2-11.8 Below low normal [facility] - volume [Entitic Good volume] in Blood [facility] by [facility]ated [facility] count Segmented 64 % 48-72 [facility] - neutrophils/100 [facility] leukocytes in [facility] Blood by Manual [facility] count Band form 3 % <1 Above high normal [facility] - neutrophils/100 [facility] leukocytes in [facility] count Lymphocytes/100 17 % 18-40 Below low normal [facility] - leukocytes in Good Blood by Manual [facility] count Hospital Monocytes/100 15 % 2-12 Above high normal [facility] - leukocytes in Good Blood by Manual [facility] Eosinophils/100 1 % 0-7 [facility] - leukocytes in Good Blood by Manual [facility] count [facility] 2+ANISOCYTOSIS2+MACROCYTOSIS Platelet adequacy [Presence] in Blood by [facility] Light microscopy Differential cell count method - Blood [facility] ID Date Data Source [id number] 01/19/2019 08:18:56 AM EDT [facility] Name Value Range Interpretation Description Data Sup porting Code Source(s) Document(s ) Sodium 131 136-145 Below low normal [facility] [Moles/volume] mmol/L [facility] in Serum or Hospital Plasma Potassium 4.4 3.5-5.1 [facility] [Moles/volume] mmol/L [facility] in Serum or Hospital Plasma Chloride 93 98-107 Below low normal [facility] - Good [Moles/volume] mmol/L [facility] in Serum or Hospital Plasma Carbon 35 21-32 Above high normal [facility] - Good dioxide, total mmol/L [facility] [Moles/volume] Hospital in Serum or Plasma Anion gap in 7 mmol/L 10-20 Below low normal [facility] - Go od Serum or [facility] Plasma [facility] Glucose 101 74-106 [facility] [Mass/volume] mg/dL [facility] in Serum or Hospital Plasma Urea nitrogen 11 mg/dL 7-18 [facility] [Mass/volume] [facility] in Serum or Hospital Plasma Creatinine 0.45 0.70-1.3 Below low normal [facility] - Good [Mass/volume] mg/dL 0 [facility] in Serum or Hospital Plasma Glomerular >60 [facility] - Good filtration Taoist rate/1.73 sq M Hospital predicted among blacks [Volume Rate/Area] in Serum or Plasma by Creatinine-bas ed formula (MDRD) Glomerular >60 [facility] - Good filtration Taoist rate/1.73 sq M Hospital predicted among non-blacks [Volume Rate/Area] in Serum or Plasma by Creatinine-bas ed formula (MDRD) Calcium 9.7 8.5-10.1 [facility] - Good [Mass/volume] mg/dL [facility] in Serum or Hospital Plasma Phosphate 1.8 2.5-4.9 Below low normal [facility] - Good [Mass/volume] mg/dL [facility] in Serum or Hospital Plasma Albumin 1.7 g/dL 3.5-4.7 Below low normal [facility] - Good [Mass/volume] [facility] in Serum or Hospital Plasma by Bromocresol purple (BCP) dye binding method ID Date Data Source [id number] 01/19/2019 08:18:56 AM EDT [facility] Name Value Range Interpretation Description Data Sup porting Code Source(s) Document(s ) Magnesium 1.8 mg/dL 1.6-2.6 [facility] - Good [Mass/volume] Taoist in Serum or Hospital Plasma ID Date Data Source [id number] 01/19/2019 02:26:44 AM EDT [facility] Progressing slowly Name Value Range Interpretation Code Description Data Harriett rce(s) Supporting Document(s ) ID Date Data Source [id number] 01/18/2019 07:31:43 PM EDT [facility] Bedside and Verbal shift change report carol Starr RN (oncoming nurse) Mely KNOX RN (offgoing nurse). Report in cluded the following informationSBAR, Kardex, MAR and Recent Results. Name Value Range Interpretation Code Description Data Harriett rce(s) Supporting Document(s ) ID Date Data Source [id number] 01/18/2019 02:31:52 PM EDT [facility] Progress NotePatient: Evelio Carlin Sex: male DOA: 01/10/2019Date of : 1950 Age: 68 y.o. :[id number]:Reyes Carlin is 68 y.o. male who is Nonverbal; appearing comfortable.Wearing O2 NCHe wa s seen and examined at bedside on 01/17/19.Placed on BIPAP yesterday for Ac manzanita respiratory distress.Pt presented from [facility] to the ED, with medical history of Dysphagia ,s/p surgical placement of peg on 11/17/18, severe intellectual disability, Chronic respiratory failure, large Hiatal Hernia, hyperparathyroid unspecified,pe rsonal h/o pulmonary embolus, anxiety disorder, kyphosis and schizophrenia. Pt is nonverbal at baseline and is unable to provide a history.Per long-term [facility] records, at 6 AM, patient was found Hypoxic, with O2SAT of 87 % on O2 NC 4 L PM, heart qnoi139 BPM, blood pressure of 105/73, respiratoryrate of 30 andaudible wheeze. Nebulizer treatment was given. He was placed on a NRM withimproved O2 SAT to 95 % , his respiratory rate was 30 and he was afebrile. Thenursing home transfer r ecord reporting that the resident removes nasal canulaat times. In the ED pt appe aring lethargic and having mild respiratory distress.CXR showing haziness at the rig ht lung base due to small effusion withatelectasis/infiltrate. No confluen t left lung process is seen. Sodium oocmp608.ABG with pH 7.46/53/66/38 O2 SA T 95 % on NC 4 LPM.The patient was admitted with encounter diagnosis of Acute Respir atory Failurewith hypercapnia and hypoxia, Pneumonia RLL likely Aspiration and Ate lectasis.Also, diag of Dysphagia s/p surgical placed peg, COPD, mentally challenged,se izure and hyperparathyroid are pertinent to this visit.The RN reporting that patient is tolerating his bolus tube feedings. CT scan chest wo contrast dated 01/10/19 dianna wed 1.8 cm nodule along the rightlateral wall of the trachea at the level of the thora cic inlet not obs on theprior study and can be due to a mucous plug. Follow up CT ch est WC dated 01/15 with finding of tracheal nodule no longervisualized.Small left pl eural effuion with underlying passive atelectatic changes similarto prior stud y.Stable small right pleural effusion. Interval improvement in the rt lower lob elung infiltrate. No new lung findings seen. 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 7 C)Resp 20Ht 5' 2" (1.575 m)Wt 56.4 kg (124 lb 4.8 oz)SpO2 98%BMI 22.73 kg/m PHYSICA L EXAM:General: Alert, cooperative, no distress, appears stated age.Head: Nor mocephalic, without obvious abnormality, atraumatic.Eyes: Conjunctivae clear, a nicteric sclerae. Pupils are equalNeck: Supple, symmetrical, no adenopathy, no carotid bruit and no JVD.Lungs: Clear to auscultation bilaterally. No Wheezing o r Rhonchi. No rales.Chest wall: No Accessory muscle use.Heart: Regular ra te and rhythm, no murmur, or rubAbdomen: Soft, non-tender. Not distended. Bowel sounds normal. No massesExtremities: Extremities normal, atraumatic, No cyano sis. No edema. No clubbingSkin: Texture, turgor normal. No rashes or lesions. No t JaundicedLymph nodes: Cervical, supraclavicular normal.Psych: Good insi ght. Not depressed. Not anxious or agitated.Neurologic: EOMs intact. No fac ial asymmetry. No aphasia or slurred speech.Normal strength, Alert and orie nted X 3.Intake and Output:Current Shift: No intake/output data recorded.Last three s hifts: 01/16 701 - 01/17 190In: 3520 [I.V.:300]Out: 1900 [Urine:1900]Lab/Data Reviewed:Recent Days:Recent Labs 01/16/1905WB C 5.9 6.7 5.7HGB 11.2* 11.0* 11.6*HCT 34.1* 34.1* 35.3*PLT 299 266 282Recent Labs 1 01/16/1905NA 131* 133* 134*K 4.3 4.2 4.2CL 93* 95* 94*CO2 37* 37* 32GLU 78 119* 77BUN 8 10 9CREA 0.37* 0.52* 0.37*CA 9.1 9.5 8.9MG 1.9 2.1 2.0P HOS 2.5 2.5 2.9ALB 1.8* 1.8* 2.0*No results for input(s): PH, PCO2, PO2, HCO3, FIO2 in the last 72 hours.CULTURE, BLOOD [[id number]] (Order [id number])MicrobiologyDate: 2018 Department: [facility] Med [facility]urg Released By/Authorizing: Wes Romero MD (a uto-released)Specimen Information: Blood Component Value Flag Ref Range Units Sta tusSpecial Requests: FinalNO SPECIAL REQUESTSCulture result: NO GROWTH 5 DAYS CULTURE, BLOOD [[id number]] (Order [id number])MicrobiologyDate: 01/10/2019 De partment: [facility] 3t Med Surg Released By/Authorizing: Wes Romero MD (a uto-released)Specimen Information: Blood Component Value Flag Ref Range Units Sta tusSpecial Requests: FinalNO SPECIAL REQUESTSCulture result: NO GROWTH 5 DAYS Xr Chest Sngl VResult Date: 12/25/2018Portable chest x-ray. PRIOR EXAM: X-ray 12/18/2018 HISTORY: Pneumonia FINDINGS:The heart is normal in size. The mediastinum and pulm onary vessels areunremarkable. There is a small right pleural effusion.. A tube pr ojected overthe left upper quadrant of the abdomen..IMPRESSION: Small right pleural effusion.Ct Chest Wo ContResult Date: 01/10/2019CT CHEST WO CONT Clinical data: evaluation of pneumonia rt lung. Priors:12/18/2018 Technique: CT scan of th e chest was performed from the thoracic inletto below the diaphragm without admi nistration of intravenous contrast. Theacquisition data was reviewed in the axial, sagittal and coronal plane.Utilizing silver holloware assembler algorithm the examination w as performed to optimizeimaging quality by utilizing the lowest possible radiation dose. Findings: Thereis no evidence of pathological lymphadenopathy within the mediastinum, bilateralhilar and bilateral axillary location. There is a 1.8 cm no dule along the rightwall of the trachea at the level of the thoracic inlet (best se en on image 13ofseries 2) not seen on the prior study. This may be due to a mucou s plug. Noadditional endotracheal or endobronchial lesion is noted.Normal hea rt size.Coronary artery calcifications noted. Atherosclerotic thoracic aorta withouta neurysmal dilatation. Evaluation lung windows demonstrates patchy right lowerlobe lung infiltrate. There is associated small right pleural effusion similarto prior. There is also small left pleural effusion with underlying passiveatelectasis slightly d ecreased from the prior study. No new lung pathology isobserved. Included upper abd ominal organs: No significant pathology is observedwithin the visualized upper abdo wanda organs.IMPRESSION: Small bilateral pleural effusion. Right effusion is sim ilar toprior study. Left effusion slightly decreased in size. Patchy right lungopa cities which may be due to pneumonia similar to previous examinations. 1.8cm nodule along the right lateral wall of the trachea at the level of thethoracic inlet not ob served on the prior study and can be due to a mucous plug.Ct Abd Pelv Wo ContResult Da te: 12/21/2018History: ? Maturity of g-tube tract Technique: CT of the abdomen and p aimee wasperformed from the dome of the diaphragm to the pubic symphysis without oral orintravenous contrast with dose lowering techniques. Sagittal and almonte lreconstructions were performed. Evaluation of solid abdominal viscera iscompromised by by the lack of intravenous contrast. Evaluation of the bowelloops is compromi sed lack of oral contrast. All CT scans at this facility areperformed using dose op timization technique as appropriate to a performed exam,to include automated expo sure control, adjustment of the mA and/or kV accordingto patient size (including appr opriate matching first site-specificexaminations), or use of it erative reconstruction technique. Comparison: CT scanof the chest performed 12/19/18 Fin malias: There is a small right pleural effusionwith adjacent atelectasis. There is minimal left pleural fluid with adjacentatelectasis. There is a pigtail catheter again identified on the left. The exactlocation of this catheter is diffic ult to ascertain benefits above the diaphragmto below the diaphragm. On bert henson's study the tip appears to be located below thediaphragm. There is a small right ple ural effusion with adjacent atelectasis.There is a G-tube identified in the stomach. T he liver, gallbladder, spleen,pancreas, kidneys and adrenal glands are unremarka ble. No abdominal, pelvic oringuinal lymphadenopathy is identified. No free i ntraperitoneal fluid is noted.There is a ventral wall hernia containing loops of what appear to be small bowelhowever are difficult to follow. There is mild perir ectal stranding andpresacral edema correlate clinically. No dilated loops of bowel ar e identified.There is mild diverticulosis of the colon. The prostate, bladder and mayra inalvesicles appear unremarkable. There are streak artifact obscuring portions ofthe pelvis due to a left hip ORIF. There is subcutaneous gas identified alongthe rig ht lower anterior pelvic wall.IMPRESSION: There is a G-tube identified in the stom ach. There is a tailcatheter identified on the left. The tip appears to be located below thediaphragm although is difficult to assess on CT. There is a small residuala mount of pleural fluid as well as atelectasis along the left diaphragm. Thereis perire ctal stranding and presacral edema.Ct Chest W Cont F/uResult Date: 01/15/2019CT CHEST W CONT F/U Clinical data: R U L NODULE NEAR TRACHEA / BLOOD VESSEL.Priors: 01/10/2019 . Technique: CT scan of the chest was performed from thethoracic inlet to belo w the diaphragm following administration of intravenouscontrast. The acquisition da ta was reviewed in the axial, sagittal and coronalplane. 100 cc of low osmolar iodi nated contrast-isovue 300 was injectedintravenously for the examinatio n. Utilizing silver holloware assembler algorithm theexamination was performed to optimize imaging quality by utilizing the lowestpossible radiation dose. Findings: There is no evidence of pathologicallymphadenopathy within the m ediastinum, bilateral hilar and bilateral axillarylocation. There is no evidence of a central endobronchial or an endotrachealmass. Previously seen nodule along the right lateral wall of the trachea nolonger visualized. This may have repr esented a mucus lung which has dislodged.Coronary artery calcifications noted. Atherosclerotic thoracic aorta withoutaneurysmal dilatation. Elevated l eft hemidiaphragm. There is a small leftpleural effusion with underlying pas sive atelectatic changes similar to priorstudy. Improved previously seen ri ght lower lobe lung infiltrate. There isassociated small right pleural effusio n similar to prior examination. No newlung pathology is observed. Included upper ab dominal organs: No significantpathology is observed within the visualized upper abd ominal organs.IMPRESSION: 1. Previously seen tracheal nodule is no longer visualized. 2.Small left pleural effusion with underlying passive atelectatic changes s imilarto prior study. Stable elevation of the left hemidiaphragm. 3. Stable small right pleural effusion. Interval improvement in the right lower lobe lunginfiltrate. No new lung findings seen.Ct Thoracentesis Insrt Chest TubeResult Date: 12/19/2018His tory: Pleural effusion. PROCEDURE: After being informed of the risks,benefits, an d potential alternatives procedure informed consent was obtained.The patient was jocelyn riley on the table in the [id number]-[id number] decubitus position.CT scanning was perfo rmed location was chosen over the left flank. However, dueto the significant amount of patient motion and breathing motion was difficultto accurately assess a location for percutaneous paracentesis. Therefore, thiswas performed manually. After the ch osen region was prepped and draped in thenormal sterile fashion using maximum sterile barrier technique a lidocaineneedle was placed in the skin. This appeared to be in good position. Lidocainewas then used to anesthetize the skin and subcutaneous tissues in this location.Attempts were made to pass an 8 Congolese pigtail catheter thr ough this location.However, patient continuous motion was significant as wel l as excessivebreathing during the procedure. The catheter was placed at the same inte rspaceas well as marked on the prior CT sequence however, due to the excessive p atientmotion the catheter was far more inferior within the chest that on the pr iorsequences. The catheter appeared to enter the hemiabdomen on the left from theleft chest. The catheter was then pulled back to position where clear yellowfluid was asp irated. It was then sewn in position However, It appeared tomigrate forward and on the CT scanning appeared to again transgress thediaphragm. It was therefore pulled ba ck to a point where only a clear fluid wasaspirated and respiratory variation w as noted within the tube. It was then sewnin position using 2-0 silk sutures. FINDING S: Initial CT scanning revealed amoderate left pleural effusion. Attempts to nancy an adequate location forpercutaneous thoracentesis were quite limited due to excessive patient motionand breathing throughout the procedure. A location myrtle t appear to be a safelocation was marked. However, when the catheter was placed in this sameinterspace as well as marked the catheter appeared to be far more inferio rwithin the hemithorax than that seen previously. It appeared to enter the lef themithorax inferiorly and transgress the diaphragm with no evidence pathologicseq uela. Therefore, it was pulled back into the pleural space for adequatedrainage. 130 cc of lightly blood-tinged fluid was aspirated. The catheter wasattached to a Pleur-evac and wall suction.IMPRESSION: Left-sided thoracentesis described above .Xr Chest PortResult Date: 01/17/2019Portable chest x-ray. PRIOR EXAM: X-ray 01/10/2019 HISTORY: Hypoxia FINDINGS: Theheart is normal in size. The mediastinum and pulm onary vessels are unremarkable.There is no acute infiltrate. The bony structures ar e intact.IMPRESSION: No acute pulmonary disease. There is very limited visualiza tion ofthe right lung due to patient positioning.Xr Chest PortResult Date: XR CHEST PORT Clinical data: Sepsis Priors: 12/29/2018. Findings: Examination iscompromised due to limited inspiration and patient rotation. Heart size isunchange d. Haziness seen at the right lung base can be due to small effusionwith atelectasis /infiltrate. No confluent left lung process is seen. Noevidence of CHF.IMPRESSION: Limited study. Suspect right lung base process which may be due tosmall effusio n with atelectasis/infiltrate.Xr Chest PortResult Date: 12/29/2018History: leuko cytosis Technique: Portable chest x-ray 12/29/2018 11:01 AMComparison: 12/25/2018. FINDINGS: There is a right lower lobe infiltrate oratelectasis which is increa sed since prior exam. There is poor inspiration.There is a small left pleura l effusion. The exam is rotated. Evaluation of thecardiac silhouette is limited by p rojection. The visualized osseous structuresappear unremarkable.IMPRESSION : There is a right lower lobe infiltrate or atelectasis which isincreased since prio r exam.Duplex Upper Ext Venous LeftResult Date: 12/26/2018DUPLEX UPPER EXT VENOUS L EFT Clinical Data: Arm swelling, DVT suspectedFindings: The visualized segmen ts of the left upper extremity venous circulationfrom the level of the subclav deondre vein to the brachial vein is compressible andshows normal phasic flow without an i ntraluminal thrombus. In addition, theinternal jugular vein and the basilic vein is also patent. Extremely limitedexam because the patient was unable to geo ate and this was done in a portablefashion.IMPRESSION: No evidence of deep vein thrombosis within the visualized left upperextremity venous circulation. Limited study.Duplex Lower Ext Venous BilatResult Date: 01/11/2019HISTORY: swel ling to lower extremities TECHNIQUE: Bilateral lower extremityvenous Doppler ultrasound Using real time and color-flow Doppler as well asspectral analysis and ultrasound examination was performed of the lowerextremities bilaterally. FINDINGS: On the right side the common femoral vein,superficial femoral vein along its entire course, as well as popliteal vein allappeared widely patent, were easily c ompressible, showed normal spontaneousflow. The calf veins were not visualized due t o body habitus. On the left sidethe common femoral vein, superficial femoral vein a long its entire course, aswell as popliteal vein all appeared widely patent, were ea sily compressible, andshowed normal spontaneous flow. The calf veins were no t visualized due to bodyhabitus.IMPRESSION: Normal bilateral lower extremity venous Doppler ultrasound with noevidence of deep vein thrombosis.Medications reviewedCurr ent Facility-Administered MedicationsMedication Dose Route Frequen cy acetylcysteine (MUCOMYST) 100 mg/mL (10 %) nebulizer solution 400 mg 4 mLNebuli zation BID RT multivit-folic acid- herbal 275 (WELLESSE PLUS) oral liquid 30 mL 30 mL Per GTube DAILY budesonide (PULMICORT) 500 mcg/2 ml nebulizer suspension 500 mcg N ebulizationBID RT sodium chloride (NS) flush 5-10 mL 5-10 mL IntraVENous PRN choles tyramine-aspartame (QUESTRAN LIGHT) packet 4 g 4 g Oral TID WITH MEALS cinacalcet ( SENSIPAR) tablet 60 mg 60 mg Oral DAILY lamoTRIgine (LaMICtal) tablet 50 mg 50 mg Per G Tube BID pantoprazole (PROTONIX) granules for oral suspension 40 mg 40 m g Per G TubeACB valproic acid (as sodium salt) (DEPAKENE) 250 mg/5 mL (5 mL) oral solution 750mg 750 mg Oral BID ALPRAZolam (XANAX) tablet 0.5 mg 0.5 mg Per G Tube QHS acetaminophen (TYLENOL) solution 650 mg 650 mg Oral Q4H PRN heparin (porcine) injection 5,000 Units 5,000 Units SubCUTAneous Q12H influenza vaccine 201 9-20 (65 yrs+)(PF) (FLUZONE HIGH-DOSE) injection 0.5 mL0.5 mL IntraMUSCular YUAN OR TO DISCHARGE albuterol-ipratropium (DUO-NEB) 2.5 MG-0.5 MG/3 ML 3 mL Nebul ization Q6H RTAssessment/Plan:Hospital Problems Date Reviewed: 01/14/2019 Codes Class Noted POA Acute respiratory failure with hypoxia (HCC) ICD-10-CM: J9 6.01ICD-9-CM: 518.81 01/10/2019 Unknown Pneumonia involving right lung ICD-10-CM : J18.9ICD-9-CM: 486 01/10/2019 Unknown Hyponatremia ICD-10-CM: E87.1ICD-9-CM: 2 76.1 01/10/2019 YesAssessment: Lung nodule right lateral wall of trachea(not visual ized on f/u ct scan with contrast) Acute Respiratory Failure with Hypercapnia and HypoxiaPneumonia likely Aspiration RLLAtelectasisDysphagia s/p surgical jocelyn riley pegMentally challengedSeizureHyperparathyroidLeft an kle and pedal edema- Resolved(DVT Ruled OUT)Plan:Continuous O2 NC incr to 4 lpm; nightly Bipap per pulmonaryIV anbx per IDNebulizersFollow culturesRestraints wi th mitts PRNContinue with bolus TF for Christofer Madrid 2018Time : 12:03 AM Name Value Range Interpretation Code Description Data Harriett rce(s) Supporting Document(s ) ID Date Data Source [id number] 01/18/2019 02:10:24 PM EDT [facility] Progress NotePatient: Evelioblanka Carlin Sex: male DOA: 01/10/2019Date of : 1950 Age: 68 y.o. :[id number]:Reyes Carlin is 68 y.o. male Who is Nonverbal; appearing comfortable.Wearing O2 NC, on nightly BIPAP.Pt presented from [facility] to the ED, with medical history of Dysphagia ,s/p surgical placement of peg on 11/17/18, severe intellectual disability, Chronic respiratory failure, large Hiatal Hernia, hyperparathyroid unspecified,pe rsonal h/o pulmonary embolus, anxiety disorder, kyphosis and schizophrenia. Pt is nonverbal at baseline and is unable to provide a history.Per long-term [facility] records, at 6 AM, patient was found Hypoxic, with O2SAT of 87 % on O2 NC 4 L PM, heart iexl025 BPM, blood pressure of 105/73, respiratoryrate of 30 andaudible wheeze. Nebulizer treatment was given. He was placed on a NRM withimproved O2 SAT to 95 % , his respiratory rate was 30 and he was afebrile. Thenursing home transfer r ecord reporting that the resident removes nasal canulaat times. In the ED pt appe aring lethargic and having mild respiratory distress.CXR showing haziness at the rig ht lung base due to small effusion withatelectasis/infiltrate. No confluen t left lung process is seen. Sodium ggqig957.ABG with pH 7.46/53/66/38 O2 SA T 95 % on NC 4 LPM.The patient was admitted with encounter diagnosis of Acute Respir atory Failurewith hypercapnia and hypoxia, Pneumonia RLL likely Aspiration and Ate lectasis.Also, diag of Dysphagia s/p surgical placed peg, COPD, mentally challenged,se izure and hyperparathyroid are pertinent to this visit.The RN reporting that patient is tolerating his bolus tube feedings. CT scan chest wo contrast dated 01/10/19 dianna wed 1.8 cm nodule along the rightlateral wall of the trachea at the level of the thora cic inlet not obs on theprior study and can be due to a mucous plug.Follow up CT nelda st WC dated 01/15 with finding of tracheal nodule no longervisualized.Small left pl eural effuion with underlying passive atelectatic changes similarto prior stud y.Stable small right pleural effusion. Interval improvement in the rt lower lob elung infiltrate. No new lung findings seen. 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 Pupils are equalNose: Wearing O2 ncNeck: Supple, symmetrical, no adenopathy, no carotid bruit and no JVD.Lungs: Clear to auscultation bilat erally. No Wheezing or Rhonchi. No rales.Chest wall: No Accessory muscle use.Heart: Regular rate and rhythm, no murmur, or rubAbdomen: Positive peg in place, soft, non-tender. Not distended. Bowel soundsnormal. No massesExtremities : Extremities normal, atraumatic, No cyanosis. No edema. No clubbingSkin: Warm and dry. No rashes or lesions. Not JaundicedLymph nodes: Cervical, supracla vicular normal.Psych: Not anxious or agitated.Neurologic: EOMs intact. No fac ial asymmetry. Non verbal, Generalized weakness,Alert and AwakeIntake and Outpu t:Current Shift: 01/16 1901 - 01/17 700In: 340Out: -Last three shifts: 01/15 701 - 01/16 1900In: 4530 [I.V.:1500]Out: 2150 [Urine:2150]Lab/Data Reviewed:Recent Day s:Recent Labs 01/15/1905WBC 6.7 5.7 4.4*HGB 11.0* 11 .6* 10.4*HCT 34.1* 35.3* 31.1*PLT 266 282 239Recent Labs 01/15/1905 7 NA 133* 134* 137K 4.2 4.2 4.1CL 95* 94* 99CO2 37* 32 36*GLU 119* 77 112* BUN 10 9 8CREA 0.52* 0.37* 0.38*CA 9.5 8.9 8.4*MG 2.1 2.0 1.9PHOS 2.5 2.9 3.4ALB 1. 8* 2.0* 1.7*No results for input(s): PH, PCO2, PO2, HCO3, FIO2 in the last 72 tammy rs.Xr Chest Sngl VResult Date: 12/25/2018Portable chest x-ray. PRIOR EXA M: X-ray 12/18/2018 HISTORY: Pneumonia FINDINGS:The heart is normal in size. Th e mediastinum and pulmonary vessels areunremarkable. There is a small right pleural effusion.. A tube projected overthe left upper quadrant of the abdomen..IMPR ESSION: Small right pleural effusion.Ct Chest Wo ContResult Date: 01/10/2019CT CHEST WO CONT Clinical data: evaluation of pneumonia rt lung. Priors:12/18/2018 Technique: CT s can of the chest was performed from the thoracic inletto below the diaphragm wit hout administration of intravenous contrast. Theacquisition data was reviewed in the axial, sagittal and coronal plane.Utilizing silver holloware assembler algorithm the examination w as performed to optimizeimaging quality by utilizing the lowest possible radiation dose. Findings: Thereis no evidence of pathological lymphadenopathy within the mediastinum, bilateralhilar and bilateral axillary location. There is a 1.8 cm no dule along the rightwall of the trachea at the level of the thoracic inlet (best se en on image 13ofseries 2) not seen on the prior study. This may be due to a mucou s plug. Noadditional endotracheal or endobronchial lesion is noted.Normal hea rt size.Coronary artery calcifications noted. Atherosclerotic thoracic aorta withouta neurysmal dilatation. Evaluation lung windows demonstrates patchy right lowerlobe lung infiltrate. There is associated small right pleural effusion similarto prior. There is also small left pleural effusion with underlying passiveatelectasis slightly d ecreased from the prior study. No new lung pathology isobserved. Included upper abd ominal organs: No significant pathology is observedwithin the visualized upper abdo wanda organs.IMPRESSION: Small bilateral pleural effusion. Right effusion is sim ilar toprior study. Left effusion slightly decreased in size. Patchy right lungopa cities which may be due to pneumonia similar to previous examinations. 1.8cm nodule along the right lateral wall of the trachea at the level of thethoracic inlet not ob served on the prior study and can be due to a mucous plug.Ct Chest Wo ContResult Date: 12/18/2018Referring Physician: KRYSTIAN MONAE Patient Name: EVELIO CARLIN THIS IS AFINAL REPORT FROM [facility] DATE OF SERVICE: 2018-12-18 01:22:40 IMAGES:555 EXAM: CT CHEST WO CONTRAST HISTORY: .. Right lower lobe atelectasis..TECHNIQUE: Helic al axial imaging from the thoracic inlet through the adrenalglands without contra st. Sagittal and coronal reconstructions were obtained.COMPARISON: CT chest without co ntrast of 12/13/2018. FINDINGS: .. Evaluationremains limited due to lack of IV contrast and patient positioning. The imagedthyroid gland remains atrophic. Th e aorta remains normal in caliber.Atherosclerotic calcifications a re again seen in the aorta. There is againcardiomediastinal shift towards the right. The heart remains normal in size andno pericardial effusion is noted. No obvious lymphadenopathy seen on thisunenhanced scan. No pneumothorax is noted. Since the prior exam there is beenincrease in bilateral pleural effusi ons with associated consolidations. Acalcified granuloma is again seen in th e right lower lobe. The imaged upperabdomen does not demonstrate any gross acute maggy nges. Osteopenia is again noted.Degenerative changes again seen in the imaged spine. Old healed right posteriorlower rib fractures are again seen.IMPRESSION: .. Limited s tudy demonstrating increase in bilateral pleuraleffusions with associated consoli dations with persistent cardiomediastinal shifttowards the right. Stable findings as noted above.. One or more of the followingdose reduction techniques were used: automated exposure control, adjustment ofthe mA and/or kV according to patient size, use of iterative reconstructivetechnique. THIS DOCUMENT H BEEN ELECTRONICALLY SIGNED Kamran Gillette MD 12/18/2018 04:49 GINA Verde Please call [facility] [phone] with questions. This report was electronically signed by: Tala MENDEZ 12/18/2018 04: 50 AMCta Up Ext Lt W ContResult Date: 12/18/2018History: Arm claudication. FINDI NGS: CTA of the left upper extremity wasperformed helically from level of the shoulder through the fingers after theintravenous administration of 119 cc of Isovue. Sagittal, coronal, and 3-Dreconstructed images obtained on an RealtimeBoard workstation are submitted. Noprior studies are available for comparison. Th e left subclavian artery is widelypatent. It is continuous with a widely patent left axillary artery. The axillaryartery is continuous with a widely patent left bra chial artery. The brachialartery bifurcates into a radial and ulnar artery just belo w the elbow. From thispoint distally streak artifact from patient positioning limits evaluation.However, the ulnar artery appears widely patent to the wrist. The radial a rteryis less well opacified but does appear patent to the wrist as well. Anintraosse ous artery also appears patent although it is poorly visualized aswell. The digital ar teries are not visualized on this study. There arebilateralpleural effusions note d both of which are moderate to large. Theeffusion on the left one is larger th an the right. Bibasilar atelectatic changethroughout much of the lower lobes is seen. There is a significant shift ofmediastinal structures to the right. T he liver is decreased in attenuationcompatible with fatty infiltr ation. The spleen is unremarkable. The adrenalglands are normal in appearance. The pancreas is grossly normal as is thegallbladder. A gastrostomy tube is no mikel in situ. The kidneys are unremarkable.There is a midline abdomina l wall hernia containing large and small bowel aswell as mesentery without eviden ce of obstruction. There is some presacralthickening and possibly some fr ee fluid noted. The patient is status post ORIFof the left hip with metallic hardwa re in situ.IMPRESSION: Patent left upper extremity arterial vessels although eval uationdistally is limited. Bilateral pleural effusions and bibasilar atelectasis.Shif t of mediastinal structures to the right.Ct Abd Pelv Wo ContResult Date: 12/21/2018His tory: ? Maturity of g-tube tract Technique: CT of the abdomen and pelvis wasperforme d from the dome of the diaphragm to the pubic symphysis without oral orintravenous con trast with dose lowering techniques. Sagittal and coronalreconstructions were performe d. Evaluation of solid abdominal viscera iscompromised by by the lack of intraven ous contrast. Evaluation of the bowelloops is compromised lack of oral contrast. All C T scans at this facility areperformed using dose optimization technique as appropria te to a performed exam,to include automated exposure control, adjustment of the mA a nd/or kV accordingto patient size (including appropriate matching first site-specific examinations), or use of iterative reconstruction technique. Comparison: CT scanof the chest performed 12/19/18 Findings: There is a small right pleural effusionw ith adjacent atelectasis. There is minimal left pleural fluid with adjacentatelecta sis. There is a pigtail catheter again identified on the left. The exactlocatio n of this catheter is difficult to ascertain benefits above the diaphragmto below the diaphragm. On today's study the tip appears to be located below thediaphragm. There is a small right pleural effusion with adjacent atelectasis.There is a G-tube i dentified in the stomach. The liver, gallbladder, spleen,pancreas, kidneys an d adrenal glands are unremarkable. No abdominal, pelvic oringuinal lymphadenop athy is identified. No free intraperitoneal fluid is noted.There is a ventral wall h ernia containing loops of what appear to be small bowelhowever are difficult to foll ow. There is mild perirectal stranding andpresacral edema correlate clinically. No dilated loops of bowel are identified.There is mild diverticulosis of the colon. The prostate, bladder and seminalvesicles appear unremarkable. The re are streak artifact obscuring portions ofthe pelvis due to a left hip ORIF. The re is subcutaneous gas identified alongthe right lower anterior pelvic wall.IMPRESS ION: There is a G-tube identified in the stomach. There is a tailcatheter identif ied on the left. The tip appears to be located below thediaphragm although is d ifficult to assess on CT. There is a small residualamount of pleural fluid as well as atelectasis along the left diaphragm. Thereis perirectal stranding and presacr al edema.Ct Chest W Cont F/uResult Date: 01/15/2019CT CHEST W CONT F/U Clinical da ta: R U L NODULE NEAR TRACHEA / BLOOD VESSEL.Priors: 01/10/2019. Technique: CT scan of the chest was performed from thethoracic inlet to below the diaphragm following administration of intravenouscontrast. The acquisition da ta was reviewed in the axial, sagittal and coronalplane. 100 cc of low osmolar iodi nated contrast-isovue 300 was injectedintravenously for the examinatio n. Utilizing silver holloware assembler algorithm theexamination was performed to optimize imaging quality by utilizing the lowestpossible radiation dose. Findings: There is no evidence of pathologicallymphadenopathy within the m ediastinum, bilateral hilar and bilateral axillarylocation. There is no evidence of a central endobronchial or an endotrachealmass. Previously seen nodule along the right lateral wall of the trachea nolonger visualized. This may have repr esented a mucus lung which has dislodged.Coronary artery calcifications noted. Atherosclerotic thoracic aorta withoutaneurysmal dilatation. Elevated l eft hemidiaphragm. There is a small leftpleural effusion with underlying pas sive atelectatic changes similar to priorstudy. Improved previously seen ri ght lower lobe lung infiltrate. There isassociated small right pleural effusio n similar to prior examination. No newlung pathology is observed. Included upper ab dominal organs: No significantpathology is observed within the visualized upper abd ominal organs.IMPRESSION: 1. Previously seen tracheal nodule is no longer visualized. 2.Small left pleural effusion with underlying passive atelectatic changes s imilarto prior study. Stable elevation of the left hemidiaphragm. 3. Stable small right pleural effusion. Interval improvement in the right lower lobe lunginfiltrate. No new lung findings seen.Ct Thoracentesis Insrt Chest TubeResult Date: 12/19/2018His tory: Pleural effusion. PROCEDURE: After being informed of the risks,benefits, an d potential alternatives procedure informed consent was obtained.The patient was jocelyn riley on the table in the [id number] decubitus position.CT scanning was perfo rmed location was chosen over the left flank. However, dueto the significant amount of patient motion and breathing motion was difficultto accurately assess a location for percutaneous paracentesis. Therefore, thiswas performed manually. After the ch osen region was prepped and draped in thenormal sterile fashion using maximum sterile barrier technique a lidocaineneedle was placed in the skin. This appeared to be in good position. Lidocainewas then used to anesthetize the skin and subcutaneous tissues in this location.Attempts were made to pass an 8 Congolese pigtail catheter thr ough this location.However, patient continuous motion was significant as wel l as excessivebreathing during the procedure. The catheter was placed at the same inte rspaceas well as marked on the prior CT sequence however, due to the excessive p atientmotion the catheter was far more inferior within the chest that on the pr iorsequences. The catheter appeared to enter the hemiabdomen on the left from theleft chest. The catheter was then pulled back to position where clear yellowfluid was asp irated. It was then sewn in position However, It appeared tomigrate forward and on the CT scanning appeared to again transgress thediaphragm. It was therefore pulled ba ck to a point where only a clear fluid wasaspirated and respiratory variation w as noted within the tube. It was then sewnin position using 2-0 silk sutures. FINDING S: Initial CT scanning revealed amoderate left pleural effusion. Attempts to nancy an adequate location forpercutaneous thoracentesis were quite limited due to excessive patient motionand breathing throughout the procedure. A location myrtle t appear to be a safelocation was marked. However, when the catheter was placed in this sameinterspace as well as marked the catheter appeared to be far more inferio rwithin the hemithorax than that seen previously. It appeared to enter the lef themithorax inferiorly and transgress the diaphragm with no evidence pathologicseq uela. Therefore, it was pulled back into the pleural space for adequatedrainage. 130 cc of lightly blood-tinged fluid was aspirated. The catheter wasattached to a Pleur-evac and wall suction.IMPRESSION: Left-sided thoracentesis described above .Xr Chest PortResult Date: 01/10/2019XR CHEST PORT Clinical data: Sepsis Priors: 9/16/ 2019. Findings: Examination iscompromised due to limited inspiration and patient rotat ion. Heart size isunchanged. Haziness seen at the right lung base can be due to sma ll effusionwith atelectasis/infiltrate. No confluent left lung process is seen. No evidence of CHF.IMPRESSION: Limited study. Suspect right lung base process which ma y be due tosmall effusion with atelectasis/infiltrate.Xr Chest PortResu lt Date: 12/29/2018History: leukocytosis Technique: Portable chest x-ray 9 11:01 AMComparison: 12/25/2018. FINDINGS: There is a right lower lobe infiltrate o ratelectasis which is increased since prior exam. There is poor inspiration.There is a small left pleural effusion. The exam is rotated. Evaluation of thecardiac silhou ette is limited by projection. The visualized osseous structuresappear unremarkable.IM PRESSION: There is a right lower lobe infiltrate or atelectasis which isincrea sed since prior exam.Xr Chest PortResult Date: 12/18/2018Portable chest x-ray. PRIO R EXAM: 12/12/2018 and 11/25/2018 HISTORY: Pneumonia andpleural effusions FINDINGS: The heart is normal in size. The mediastinum andpulmonary vessels are unremarkable. T here is haziness within the lung basesbilaterally... The bony structures are intact.IMPRESSION: Haziness within the lung bases bilaterally that could repres entsmall pleural effusions and/or subsegmental atelectasis. Similar findin gs wereseen on prior exams.Duplex Upper Ext Venous LeftResult Date: 12/26/2018DUPLEX UPPER EXT VENOUS LEFT Clinical Data: Arm swelling, DVT suspectedFindings: The vis ualized segments of the left upper extremity venous circulationfrom the level of the subclavian vein to the brachial vein is compressible andshows normal phasic flow without an intraluminal thrombus. In addition, theinternal jugular vein and t he basilic vein is also patent. Extremely limitedexam because the patient was unab le to cooperate and this was done in a portablefashion.IMPRESSION: No evidence of deep vein thrombosis within the visualized left upperextremity venous circulation. Limited study.Duplex Lower Ext Venous BilatResult Date: 01/11/2019HISTORY: agustina bustos to lower extremities TECHNIQUE: Bilateral lower extremityvenous Doppler ultrasound Using real time and color-flow Doppler as well asspectral analysis and ultrasound examination was performed of the lowerextremities bilaterally. FINDINGS: On the right side the common femoral vein,superficial femoral vein along its entire course, as well as popliteal vein allappeared widely patent, were easily c ompressible, showed normal spontaneousflow. The calf veins were not visualized due t o body habitus. On the left sidethe common femoral vein, superficial femoral vein a long its entire course, aswell as popliteal vein all appeared widely patent, were ea sily compressible, andshowed normal spontaneous flow. The calf veins were no t visualized due to bodyhabitus.IMPRESSION: Normal bilateral lower extremity venous Doppler ultrasound with noevidence of deep vein thrombosis.Medications reviewedCurr ent Facility-Administered MedicationsMedication Dose Route Frequen cy acetylcysteine (MUCOMYST) 100 mg/mL (10 %) nebulizer solution 400 mg 4 mLNebuli zation BID RT multivit-folic acid- herbal 275 (WELLESSE PLUS) oral liquid 30 mL 30 mL Per GTube DAILY budesonide (PULMICORT) 500 mcg/2 ml nebulizer suspension 500 mcg N ebulizationBID RT sodium chloride (NS) flush 5-10 mL 5-10 mL IntraVENous PRN choles tyramine-aspartame (QUESTRAN LIGHT) packet 4 g 4 g Oral TID WITH MEALS cinacalcet ( SENSIPAR) tablet 60 mg 60 mg Oral DAILY lamoTRIgine (LaMICtal) tablet 50 mg 50 mg Per G Tube BID pantoprazole (PROTONIX) granules for oral suspension 40 mg 40 m g Per G TubeACB valproic acid (as sodium salt) (DEPAKENE) 250 mg/5 mL (5 mL) oral solution 750mg 750 mg Oral BID ALPRAZolam (XANAX) tablet 0.5 mg 0.5 mg Per G Tube QHS acetaminophen (TYLENOL) solution 650 mg 650 mg Oral Q4H PRN heparin (porcine) injection 5,000 Units 5,000 Units SubCUTAneous Q12H influenza vaccine 201 9-20 (65 yrs+)(PF) (FLUZONE HIGH-DOSE) injection 0.5 mL0.5 mL IntraMUSCular YUAN OR TO DISCHARGE albuterol-ipratropium (DUO-NEB) 2.5 MG-0.5 MG/3 ML 3 mL Nebul ization Q6H RT piperacillin-tazobactam (ZOSYN) 3.375 g in 0.9% sodium chloride (MBP/ADV) 100mL MBP 3.375 g IntraVENous T2VDcexmzgsbn/Plan:Hospital Problems Da te Reviewed: 01/14/2019 Codes Class Noted POA Acute respiratory failure with hypoxia (HCC) ICD-10-CM: J96.01ICD-9-CM: 518.81 01/10/2019 Unknown Pneumonia invo lving right lung ICD-10-CM: J18.9ICD-9-CM: 486 01/10/2019 Unknown Hyponatremia ICD- 10-CM: E87.1ICD-9-CM: 276.1 01/10/2019 YesAssessment: Lung nodule right lateral wall of trachea(not visualized on f/u ct scan with contrast) Acute Respiratory F ailure with Hypercapnia and HypoxiaPneumonia likely Aspiration RLLAtelectasisDysphagi a s/p surgical placed pegMentally challengedSeizureHyperparathyroidLeft an kle and pedal edema- Resolved(DVT Ruled OUT)Plan:Continuous O2 NC incr to 4 lpm; nightly Bipap per pulmonaryIV zosyn per IDNebulizersFollow culturesRestraints wi th mitts PRNContinue with bolus TF for Marco HillsChristofer 2018Time : 2:21 AM Name Value Range Interpretation Code Description Data Harriett rce(s) Supporting Document(s ) ID Date Data Source [id number] 01/18/2019 02:04:12 PM EDT [facility] Problem: Falls - Risk ofGoal: *Absence o f FallsDescriptionDocument Samra Fall Risk and appropriate interventions in the john wsheet.Outcome: Progressing Towards GoalNote:Fall Risk Interventions:Mobilit y Interventions: Bed/chair exit alarmMentation Interventions: Bed/chair exit alarmMedication Interventions: Bed/chair exit alarmElimination Interventions: Bed /chair exit alarmHistory of Falls Interventions: Bed/chair exit alarmProbl em: Pressure Injury - Risk ofGoal: *Prevention of pressure injuryDescriptio nDocument Butch Scale and appropriate interventions in the flowsheet.Outcome: Progressing Towards GoalNote:Pressure Injury Interventions:Sensory Interventions: Jhon at heels, Check visual cues for pain, Minimize linenlayers, Pressure redistrib ution bed/mattress (bed type), Turn and repositionapprox. every two hours (ariel ws and wedges if needed)Moisture Interventions: Absorbent underpads, Appl y protective barrier, creamsand emollients, Check for incontinence Q2 hours and as n eeded, Internal/Externalurinary devicesActivity Interventions: Pressure redistribution bed/mattress(bed type)Mobility Interventions: Float heels, Suspension b oots, Turn and repositionapprox. every two hours(pillow and wedges)Nutrition Interv entions: Document food/fluid/supplement intakeFriction and Shear Interventions: Apply protective barrier, creams andemollients, Foam dressings/transparen t film/skin sealantsProblem: Tissue Perfusion - Cardiopulmonary, AlteredGoal: *Optimiz e tissue perfusionOutcome: Progressing Towards GoalGoal: *Absence of hypoxiaOut come: Progressing Towards GoalProblem: Nutrition DeficitGoal: *Optimize nutriti onal statusDescriptionPt to progress towards meeting >80% nutrient needs within 3-7 d aysOutcome: Progressing Towards Goal Name Value Range Interpretation Code Description Data Harriett rce(s) Supporting Document(s ) ID Date Data Source [id number] 01/18/2019 12:56:02 PM EDT [facility] PULMONARY/ CCM- Consult NotePatient: Ivelisse Carlin Sex: male DOA: 01/10/2019Date of : 1 Age: 68 y.o. LOS: LOS: 8 daysHPI: step down.Evelio Carlin is a 68 y.o. 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 [facility] lovir (VALTREX) 1 gram tablet Take 1,000 mg by mouth two (2) times a day.Yes Provide r, Historicalacetaminophen (TYLENOL) 325 mg suppository Insert 650 mg into rectum ev james four(4) hours as needed for Fever. Yes Provider, Historicalclorazepate (TRANXEN E) 3.75 mg tablet 1 Tab by Per G Tube route nightly. MaxDaily Amount: 3.75 mg. Mili Hills DOmultivitamin (ONE A DAY) tablet 1 Tab by Per G Tube route da pierre. 12/30/18Mili Hills DOcinacalcet (SENSIPAR) 30 mg tablet Take 2 Tabs by m outh daily. 12/30/18 Mili Hills DOlamoTRIgine (LAMICTAL) 25 mg tablet 2 Tabs by Per G Tube route two (2) times aday. 12/30/18 Mili Hills DOalbuterol-i pratropium (DUO-NEB) 2.5 mg-0.5 mg/3 ml nebu 3 mL by Nebulizationroute every six (6) hours. Every 6 hours while awake 12/30/18 Mili Hills DOalbuterol-ipratropium (DUO-NEB) 2.5 mg-0.5 mg/3 ml nebu 3 mL by Nebulizationroute every four (4) hours a s needed for Cough (wheezing, shortness of breath).12/30/18 Mili Hills DObugaston esonide (PULMICORT) 0.5 mg/2 mL nbsp 2 mL by Nebulization route two (2) timesa day. Mili Hills DObacitracin 500 unit/gram ointment Apply 1 Packet to aff ected area two (2) timesa day. Indications: minor skin infection due to bacteria, fa cial scabs 12/30/18Mili Hills DOcholestyramine-aspartame (QUESTRAN LIG HT) 4 gram packet Take 1 Packet by mouththree (3) times daily (with meals). 12/30/18 Mili Hills DOpantoprazole (PROTONIX) 40 mg granules for oral suspension 40 mg by Per G Tuberoute Daily (before breakfast). 11/28/18 Mili Hills DOvalproate ( DEPAKENE) 250 mg/5 mL syrup Take 750 mg by mouth two (2) times a day.Provider, Jazmine Thao Known AllergiesNo past surgical history on file.No family history on yoshi e.Social HistorySocioeconomic History Marital status: SINGLE Spouse name: Not on file Number of children: Not on file Years of education: Not on file Highest education level: Not on fileTobacco Use Smoking status: Never Smoker Smokeless tobacco: Never UsedSubstance and Sexual Activity Alcohol use: No Drug use: NoR eview of SystemsPertinent items are noted in the History of Present Illness.Physical Exam:Current medications:Current Facility-Administered Medications: joan tylcysteine (MUCOMYST) 100 mg/mL (10 %) nebulizer solution 400 mg, 4 mL,Nebuliza tion, BID RT, Krystian Monae MD, 400 mg at 01/18/19 0802 multivit-folic acid-herb al 275 (WELLESSE PLUS) oral liquid 30 mL, 30 mL, PerG Tube, DAILY, Mili Hills D O, 30 mL at 01/18/19 1101 budesonide (PULMICORT) 500 mcg/2 ml nebulizer suspe nsion, 500 mcg,Nebulization, BID RT, Mili Hills DO, 500 mcg at 01/18/19 0802 sodium chloride (NS) flush 5-10 mL, 5-10 mL, IntraVENous, PRN, Wes Romero MD cholestyramine-aspartame (QUESTRAN LIGHT) packet 4 g, 4 g, Oral, TID WITHMEALS, Ne Mili gallo DO, 4 g at 01/18/19 1205 cinacalcet (SENSIPAR) tablet 60 mg, 60 m g, Oral, DAILY, Mili Hills DO,60 mg at 01/18/19 0900 lamoTRIgine (LaMICtal) t ablet 50 mg, 50 mg, Per G Tube, BID, Mili Hills DO, 50 mg at 01/18/19 0900 hay toprazole (PROTONIX) granules for oral suspension 40 mg, 40 mg, Per GTube, ACB, Mili Hills DO, 40 mg at 01/18/19 0900 valproic acid (as sodium salt) (DEPAKEN E) 250 mg/5 mL (5 mL) oral mg, 750 mg, Oral, BID, Mili Hills DO, 750 mg at 01/18/19 0859 ALPRAZolam (XANAX) tablet 0.5 mg, 0.5 mg, Per G Tube, QHS, Mili Hills DO, 0.5 mg at 01/17/19 2037 acetaminophen (TYLENOL) solution 650 mg, 650 mg, Oral, Q4H PRN, Mili Hills DO heparin (porcine) injection 5,000 Units, 5,000 Units, SubCUTAneous, Q12H,Mili Hills DO, 5,000 Units at 01/18/19 120 4 influenza vaccine 2019- (65 yrs+)(PF) (FLUZONE HIGH-DOSE) injection 0.5 mL,0.5 mL, IntraMUSCular, PRIOR TO DISCHARGE, Mili Hills DO albuterol-ipratrop ium (DUO-NEB) 2.5 MG-0.5 MG/3 ML, 3 mL, Nebulization, Q6HRT, Krystian Monae MD, 3 mL at 01/18/19 0802DataVisit VitalsBP 104/80 (BP 1 Location: Left arm, BP Siri ent Position: At rest)Pulse 82Temp 98.2 F (36.8 C)Resp 18Ht 5' 2" (1.575 m)Wt 56. 4 kg (124 lb 4.8 oz)SpO2 100%BMI 22.73 kg/m Intake and Output:Date 01/17/19 07 - 65801/18/19699 - 01/19/19 0659Shift [id number] 7389-7721 24 Hour To krystian [phone] 6241-1099 24 Hour TotalINTAKEI.V.(mL/kg/hr) 100(0.1) 100( 0.1) Volume (piperacillin-tazobactam (ZOSYN) 3.375 g in 0.9% sodium chloride(MBP/ADV) 100 mL MBP) 100 100NG/GT 7585 420 5796 Water Flush Volume (mL) (PEG/Gastrostomy Tube) 300 200 500 Medication Volume (PEG/Gastrostomy Tube) 440 100 540 Inta ke (ml) (PEG/Gastrostomy Tube) 480 480 960Shift Total(mL/kg) 1320(23.4) 780(13. 8) 2100(37.2)OUTPUTUrine(mL/kg/hr) 500(0.7) 750(1.1) 1250(0.9) 400 400 Urine Voide d 750 750 Urine Output (mL) (Condom Catheter 01/16/19) 500 500 400 400Shif t Total(mL/kg) 500(8.9) 750(13.3) 1250(22.2) 400(7.1) 400(7.1)NET 820 30 850 -400 - 400Weight (kg) 56.4 56.4 56.4 56.4 56.4 56.4Pulse OX:SpO2 Readings from Last 6 E ncounters:01/18/19 100%12/30/18 96%11/27/18 91%09/26/15 96%@LASTSAO2(6)@PHYSICAL EXA M:General: Lethargic,responding.Head: Normocephalic, without obvious abnormali ty, atraumatic.Eyes: Conjunctivae clear, anicteric sclerae. Pupils are equalNose : Nares normal. No drainage or sinus tenderness.Throat: Lips, mucosa, and tongue normal. No ThrushNeck: Supple, symmetrical, no adenopathy, thyroid: no n tender no carotid bruit and no JVD.Back: Symmetric, No CVA tenderness.Lungs: Scattered rhonchi,Chest wall: No tenderness or deformity. No Accessory muscle use.He art: Regular rate and rhythm, no murmur, rub or gallop.Abdomen: Soft, non-tende r. Not distended. Bowel sounds normal. No massesExtremities: Extremities normal, a traumatic, No cyanosis. No edema. No clubbingSkin: Texture, turgor normal . No rashes or lesions. Not JaundicedLymph nodes: Cervical, supraclavicular normal. Psych: Good insight. Not depressed. Not anxious or agitated.Neurologic: EOMs int act. No facial asymmetry. No aphasia or slurred speech.Most recent labs:Recent L abs 01/18/1904WBC 7.6 5.9 6.7HGB 11.5* 11. 2* 11.0*HCT 35.4* 34.1* 34.1*PLT 340 299 266Recent Labs 01/18/1904 5 NA 131* 131* 133*K 4.4 4.3 4.2CL 92* 93* 95*CO2 34* 37* 37*GLU 85 7 8 119*BUN 11 8 10CREA 0.37* 0.37* 0.52*CA 9.8 9.1 9.5MG 2.0 1.9 2.1PHOS 2.0* 2.5 2.5AL B 1.9* 1.8* 1.8*No results for input(s): PH, PCO2, PO2, HCO3, FIO2 in the last 72 tammy rs.ABG:No results for input(s): PH, PCO2, PO2, HCO3, FIO2 in the last 72 hours.Cul tures:No results found for: SDESLab ResultsComponent Value Date/Time Culture result: NO GROWTH 1 DAY 01/10/2019 08:58 AM Culture result: NO GROWTH 5 DAYS 019 07:55 AM Culture result: NO GROWTH 5 DAYS 01/10/2019 07:40 AM Culture result: NO G ROWTH 5 DAYS 12/29/2018 11:23 AM Culture result: NO GROWTH 5 DAYS 12/29/2018 11:0 0 AM Culture result: 10,000 to 50,000 COLONIES/mL KLEBSIELLA PNEUMONIAE (A) 11:00 AM Culture result: 50,000-100,000 COLONIES/mL PSEUDOMONAS A ERUGINOSA (A)12/29/2018 11:00 AM Culture result: (A) 12/29/2018 11:00 AM 10,000 to 50,000 COLONIES/mL STAPHYLOCOCCUS EPIDERMIDIS Culture result: NO GROWTH 2 DAYS 12/24/2018 09:45 AM Culture result: NO GROWTH 5 DAYS 12/23/2018 12:00 PM Cultur e result: NO GROWTH 5 DAYS 12/23/2018 11:40 AM Culture result: NO GROWTH 4 DAYS 09/2018 12:30 PM Culture result: NO GROWTH 4 DAYS 12/19/2018 12:30 PM Culture result: NO GROWTH 1 DAY 12/12/2018 08:04 PM Culture result: NO GROWTH 5 DAYS 12/12/2018 07:4 0 PM Culture result: NO GROWTH 5 DAYS 12/12/2018 07:40 PM Culture result: NO G ROWTH 2 DAYS 11/20/2018 09:00 AM Culture result: NO GROWTH 5 DAYS 11/07/2018 08:1 0 PM Culture result: NO GROWTH 5 DAYS 11/07/2018 08:00 PMImages:Cta Chest W Or W Wo ContResult Date: 11/08/2018Examination: CTA Chest ? PE angiography History: Hypo magdy; rule out pneumoniaversus pulmonary embolism Priors: None Technique: Low-d ose, multiplanar,helical CTA chest was performed with bolus IV injection from lung apices tobases. 3D-reformatted images were obtained and reviewed on a [employer] d viewingworkstation and directly supervised. Contrast: A total of 71 mL of Isovue-370 was administered intravenously for this procedure. Findings: No evidence ofpulmo nary embolism is seen. There is decreased size of the right hemithorax fromchronic scarring and retraction with mediastinal shift left to right.Additional area of c onsolidation is seen in the right lower lobe and suggestssuperimposed pneumonia with subsegmental atelectasis. Subsegmental atelectasisis also noted in the left jorge g base, with pleural parenchymal scarring. Lowlung volumes are seen. No pneumothora x seen. Aorta normal in caliber withoutaneurysm or dissection. Mediastin um no adenopathy. Mediastinal shift is seen inthe left and right as a result of chr onic changes in the right hemithorax.Heart shows no chamber enlargement or pericard ial effusion. No acute fracturesseen in the bony thorax, sternum, manubrium and rib cage. Multiple compressiondeformities are seen in the mid and lower thoracic spine , with superimposedspondyloarthropathy. Cannot exclude acute fracture.Impression : No evidence of pulmonary embolism Right lower lobe pneumoniasuggested. Incidenta l scarring and retraction in the right hemithorax fromremote/chronic inflammato ry disease and/or trauma. Bibasilar subsegmentalatelectasis. Report Electron ically Signed By: Pawel Zafar M.D. -11/08/2018 12:40 AMXr Chest PortResult D ate: 11/07/2018XR CHEST PORT CLINICAL INDICATION PROVIDED:. "sob." COMPARISON: . 09/26/2015.FINDINGS:. The pericardial/cardiac silhouette is enlarg ed in the transversedimension. There is no pulmonary vascular congestion or interst itial edema.Linear density in the left lung base and faint densities in the right mi d tolower lung likely represent atelectasis. There is no lobar consolidation oreffusi on. There is no pneumothorax.IMPRESSION:. Bilateral lower lung atelectasis. No donna dence of consolidation oreffusion.Assessment/PlanActive Problem s: Acute respiratory failure with hypoxia (HCC) (01/10/2019) Pneumonia involving r ight lung (01/10/2019) Hyponatremia (01/10/2019) Acute resp failure combined, pneumonia acute copd exacerbation pe ruled out.PLAN,Monitoring,bipap prn for resp d istressIvabx as per id,Steroid nebbipap prn and at night.Neb,feeding started.D/w mason sing staff.Stella Hamilton MDOctober 2018The billing code submitted in [facility] with this evaluation also includes thetime to review patient's prior record s, communicate with the physician team,obtain corroborating data, and discuss the risk and benefits of the proposedmanagement plan with the patient and their family >30 mi nutes. Name Value Range Interpretation Code Description Data Harriett rce(s) Supporting Document(s ) ID Date Data Source [id number] 01/18/2019 09:57:04 AM EDT [facility] ID Progress Note01/18/2019Subjective:Siri ent with mental retardation,recurrent aspiration pneumonia.on BIPAPNo NEW even t overnightNon verbal,unable to provide history.No events over nightAfebrileWbc within normal limitCultures negativeObjective:Vitals:Patient Vitals for the past 24 hrs: BP Temp Pulse Resp KtA25801/18/19 0804 - - - - 96 %01/18/19 0 728 125/74 99.3 F (37.4 C) 86 16 95 %01/18/19 0441 117/62 97 F (36.1 C) 91 20 -01/18/19 0230 - - - - 100 %01/17/19 1942 - - - - 98 %01/17/19 1939 121/71 98 F ( 36.7 C) 91 20 99 %01/17/19 1530 113/66 97.9 F (36.6 C) (!) 104 20 96 %01/17/19 1321 - - - - 95 %Tmax: Temp (24hrs), Av.1 F (36.7 C), Min:97 F (36.1 C), Max:99.3 F(37.4 C)Physical Exam:General: Lethargic non verbalNeck: Supple, symmetrical, tra keshia midline, no adenopathLungs: Decrease breath sounds at bases.Heart: Regular r ate and rhythm, S1, S2 normalAbdomen: Soft, non-tender. Bowel sounds normal. No mass es, No organomegaly.+feeding tubeBack: No CVA tenderness.Extremities: Chronic lymp hedema.Pulses: 2+ and symmetric all extremities.Skin: Skin color, texture, t urgor normal. No rashes or lesionsCurrent Facility-Administered MedicationsMedicat ion Dose Route Frequency acetylcysteine (MUCOMYST) 100 mg/mL (10 %) nebulizer so lution 400 mg 4 mLNebulization BID RT multivit-folic acid-herbal 275 (WELLESSE PLUS) oral liquid 30 mL 30 mL Per GTube DAILY budesonide (PULMICORT) 500 mcg/2 ml nebulizer suspension 500 mcg NebulizationBID RT sodium chloride (NS) flush 5-10 mL 5-10 mL IntraVENous PRN cholestyramine-aspartame (QUESTRAN LIGHT ) packet 4 g 4 g Oral TID WITH MEALS cinacalcet (SENSIPAR) tablet 60 mg 60 m g Oral DAILY lamoTRIgine (LaMICtal) tablet 50 mg 50 mg Per G Tube BID pantoprazol e (PROTONIX) granules for oral suspension 40 mg 40 mg Per G TubeACB valproic acid ( as sodium salt) (DEPAKENE) 250 mg/5 mL (5 mL) oral solution 750mg 750 mg Oral BID AL PRAZolam (XANAX) tablet 0.5 mg 0.5 mg Per G Tube QHS acetaminophen (TYLENOL) soluti on 650 mg 650 mg Oral Q4H PRN heparin (porcine) injection 5,000 Units 5,000 U nits SubCUTAneous Q12H influenza vaccine (65 yrs+)(PF) (FLUZONE HIGH-DOSE ) injection 0.5 mL0.5 mL IntraMUSCular PRIOR TO DISCHARGE albuterol-ipratropium (DUO -NEB) 2.5 MG-0.5 MG/3 ML 3 mL Nebulization Q6H RTLabs:Recent Labs 01/16/1905WBC 7.6 5.9 6.7HGB 11.5* 11.2* 11.0*PLT 340 299 266BUN 11 8 10CREA 0.37* 0.37* 0.52*Cultures:Lab ResultsComponent Value Date/Time Culture result: NO GROWTH 1 DAY 01/10/2019 08:58 AM Culture result: NO GROWTH 5 DAYS 019 07:55 AM Culture result: NO GROWTH 5 DAYS 01/10/2019 07:40 AMRadiology:No results found.Assessment: Aspiration pneumonia. Acute hypoxic respiratory failure. Dysp hagia Pleural effusion. . COPD Plan:1. Continue IV zosyn.Monica Gomez MDOctob er 6, AM Name Value Range Interpretation Code Description Data Harriett rce(s) Supporting Document(s ) ID Date Data Source [id number] 01/18/2019 08:52:27 AM EDT [facility] Progress NotePatient: Evelio Carlin Sex: male DOA: 01/10/2019Date of : 1950 Age: 68 y.o. :[id number]:Reyes Carlin is 68 y.o. male Who is more awake and alert. He is appearingcomfortable. He is pulling off his nasal canula. The RN is requestingrestraints.Will order Mitts for restraints.Pt Presented to the ED from [facility] with medical history of Dysphagia ,s/p surgical placement of peg on 11/17/18, severe intellectual disability,Chronic respiratory failure, large Hiatal Hernia, hyperparathyroid unspecified,personal h/ o pulmonary embolus, anxiety disorder, kyphosis and schizophrenia. Ptis nonverb al at baseline and is unable to provide a history.Per long-term transfer record s, at 6 AM, patient was found Hypoxic, with O2SAT of 87 % on O2 NC 87 % on 4 LPM, h eart rated 111 BPM, Blood Pressure of 105/73, respiratoryrate of 30 andaudible wheeze. Nebulizer treatment was given. He was placed on a NRM withimproved O2 SAT to 95 % , his respiratory rate was 30 and he was afebrile. Thenursing home transfer r ecord reporting that the resident removes nasal canulaat times. In the ED pt appe aring lethargic and having mild respiratory distress.CXR showing haziness at the rig ht lung base due to small effusion withatelectasis/infiltrate. No confluen t left lung process is seen. 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 Pupils are equalNeck: Supple, symmetrical, no stephanie nopathy, no carotid bruit and no JVD.Lungs: Clear to auscultation bilaterally. No Wheezing or Rhonchi. No rales.Chest wall: No Accessory muscle use.Heart: Regular rate and rhythm, no murmur, or rubAbdomen: Positive Peg in place, soft non-tender. Not distended. Bowel soundsnormal. No massesExtremities: Extremities normal, a traumatic, No cyanosis. No edema. No clubbingSkin: Warm and dry. No rashe s or lesions. Not JaundicedLymph nodes: Cervical, supraclavicular normal.Psych: Not anxious or agitated.Neurologic: EOMs intact. No facial asymmetry. No aphasia or slurred speech.Generalized weakness, non ambulatory at baseline,, Alert and Awake .Intake and Output:Current Shift: No intake/output data recorded.Last three s hifts: 01/16 1901 - 01/18 07In: 2900 [I.V.:100]Out: 2600 [Urine:2600]Lab/Data Reviewed:Recent Days:Recent Labs 01/18/1904WB C 7.6 5.9 6.7HGB 11.5* 11.2* 11.0*HCT 35.4* 34.1* 34.1*PLT 340 299 266Recent Labs 1 01/18/1904NA 131* 131* 133*K 4.4 4.3 4.2CL 92* 93* 95*CO2 34* 37* 37*GLU 85 78 119*BUN 11 8 10CREA 0.37* 0.37* 0.52*CA 9.8 9.1 9.5MG 2.0 1. 9 2.1PHOS 2.0* 2.5 2.5ALB 1.9* 1.8* 1.8*No results for input(s): PH, PCO2, PO2, HCO 3, FIO2 in the last 72 hours.CULTURE, BLOOD [[id number]] (Order [id number])MicrobiologyD ate: 01/10/2019 Department: [facility] Released By/Authorizing: Wes Romero MD (auto-released)Specimen Information: Blood Component Value Flag Ref Range Uni ts StatusSpecial Requests: PreliminaryNO SPECIAL REQUESTSCulture result: NO GROWT H 3 DAYSCULTURE, BLOOD [[id number]] (Order [id number])MicrobiologyDate: 01/10/2019 De partment: [facility] Released By/Authorizing: Wes Romero MD (a uto-released)Specimen Information: Blood Component Value Flag Ref Range Units Sta tusSpecial Requests: PreliminaryNO SPECIAL REQUESTSCulture result: NO GROWT H 3 DAYSCULTURE, URINE [[id number]] (Order [id number])MicrobiologyDate: 01/10/2019 De partment: [facility] Released By/Authorizing: Wes Romero MD (a uto-released)Specimen Information: Clean catch; Urine Component Value Flag Ref Ra nge Units StatusSpecial Requests: FinalNO SPECIAL REQUESTSCulture result: NO GROWTH 1 DAY FinalXr Chest Sngl VResult Date: 12/25/2018Portable chest x- ray. PRIOR EXAM: X-ray 12/18/2018 HISTORY: Pneumonia FINDINGS:The heart is normal i n size. The mediastinum and pulmonary vessels areunremarkable. There is a small right pleural effusion.. A tube projected overthe left upper quadrant of the abdomen..IMPR ESSION: Small right pleural effusion.Ct Chest Wo ContResult Date: 01/10/2019CT CHEST WO CONT Clinical data: evaluation of pneumonia rt lung. Priors:12/18/2018 Technique: CT s can of the chest was performed from the thoracic inletto below the diaphragm wit hout administration of intravenous contrast. Theacquisition data was reviewed in the axial, sagittal and coronal plane.Utilizing silver holloware assembler algorithm the examination w as performed to optimizeimaging quality by utilizing the lowest possible radiation dose. Findings: Thereis no evidence of pathological lymphadenopathy within the mediastinum, bilateralhilar and bilateral axillary location. There is a 1.8 cm no dule along the rightwall of the trachea at the level of the thoracic inlet (best se en on image 13ofseries 2) not seen on the prior study. This may be due to a mucou s plug. Noadditional endotracheal or endobronchial lesion is noted.Normal hea rt size.Coronary artery calcifications noted. Atherosclerotic thoracic aorta withouta neurysmal dilatation. Evaluation lung windows demonstrates patchy right lowerlobe lung infiltrate. There is associated small right pleural effusion similarto prior. There is also small left pleural effusion with underlying passiveatelectasis slightly d ecreased from the prior study. No new lung pathology isobserved. Included upper abd ominal organs: No significant pathology is observedwithin the visualized upper abdo wanda organs.IMPRESSION: Small bilateral pleural effusion. Right effusion is sim ilar toprior study. Left effusion slightly decreased in size. Patchy right lungopa cities which may be due to pneumonia similar to previous examinations. 1.8cm nodule along the right lateral wall of the trachea at the level of thethoracic inlet not ob served on the prior study and can be due to a mucous plug.Ct Chest Wo ContResult Date: 12/18/2018Referring Physician: KRYSTIAN MONAE Patient Name: EVELIO CARLIN THIS IS AFINAL REPORT FROM [facility] DATE OF SERVICE: 2018-12-18 01:22:40 IMAGES:555 EXAM: CT CHEST WO CONTRAST HISTORY: .. Right lower lobe atelectasis..TECHNIQUE: Helic al axial imaging from the thoracic inlet through the adrenalglands without contra st. Sagittal and coronal reconstructions were obtained.COMPARISON: CT chest without co ntrast of 12/13/2018. FINDINGS: .. Evaluationremains limited due to lack of IV contrast and patient positioning. The imagedthyroid gland remains atrophic. Th e aorta remains normal in caliber.Atherosclerotic calcifications a re again seen in the aorta. There is againcardiomediastinal shift towards the right. The heart remains normal in size andno pericardial effusion is noted. No obvious lymphadenopathy seen on thisunenhanced scan. No pneumothorax is noted. Since the prior exam there is beenincrease in bilateral pleural effusi ons with associated consolidations. Acalcified granuloma is again seen in th e right lower lobe. The imaged upperabdomen does not demonstrate any gross acute maggy nges. Osteopenia is again noted.Degenerative changes again seen in the imaged spine. Old healed right posteriorlower rib fractures are again seen.IMPRESSION: .. Limited s tudy demonstrating increase in bilateral pleuraleffusions with associated consoli dations with persistent cardiomediastinal shifttowards the right. Stable findings as noted above.. One or more of the followingdose reduction techniques were used: automated exposure control, adjustment ofthe mA and/or kV according to patient size, use of iterative reconstructivetechnique. THIS DOCUMENT H BEEN ELECTRONICALLY SIGNED Kamran Gillette MD 12/18/2018 04:49 EST M.D. Please call [facility] [phone] with questions. This report was electronically signed by: Tala MENDEZ 12/18/2018 04: 50 AMCta Up Ext Lt W ContResult Date: 12/18/2018History: Arm claudication. FINDI NGS: CTA of the left upper extremity wasperformed helically from level of the shoulder through the fingers after theintravenous administration of 119 cc of Isovue. Sagittal, coronal, and 3-Dreconstructed images obtained on an [employer] workstation are submitted. Noprior studies are available for comparison. Th e left subclavian artery is widelypatent. It is continuous with a widely patent left axillary artery. The axillaryartery is continuous with a widely patent left bra chial artery. The brachialartery bifurcates into a radial and ulnar artery just belo w the elbow. From thispoint distally streak artifact from patient positioning limits evaluation.However, the ulnar artery appears widely patent to the wrist. The radial a rteryis less well opacified but does appear patent to the wrist as well. Anintraosse ous artery also appears patent although it is poorly visualized aswell. The digital ar teries are not visualized on this study. There arebilateralpleural effusions note d both of which are moderate to large. Theeffusion on the left one is larger th an the right. Bibasilar atelectatic changethroughout much of the lower lobes is seen. There is a significant shift ofmediastinal structures to the right. T he liver is decreased in attenuationcompatible with fatty infiltr ation. The spleen is unremarkable. The adrenalglands are normal in appearance. The pancreas is grossly normal as is thegallbladder. A gastrostomy tube is no mikel in situ. The kidneys are unremarkable.There is a midline abdomina l wall hernia containing large and small bowel aswell as mesentery without eviden ce of obstruction. There is some presacralthickening and possibly some fr ee fluid noted. The patient is status post ORIFof the left hip with metallic hardwa re in situ.IMPRESSION: Patent left upper extremity arterial vessels although eval uationdistally is limited. Bilateral pleural effusions and bibasilar atelectasis.Shif t of mediastinal structures to the right.Ct Abd Pelv Wo ContResult Date: 12/21/2018His tory: ? Maturity of g-tube tract Technique: CT of the abdomen and pelvis wasperforme d from the dome of the diaphragm to the pubic symphysis without oral orintravenous con trast with dose lowering techniques. Sagittal and coronalreconstructions were performe d. Evaluation of solid abdominal viscera iscompromised by by the lack of intraven ous contrast. Evaluation of the bowelloops is compromised lack of oral contrast. All C T scans at this facility areperformed using dose optimization technique as appropria te to a performed exam,to include automated exposure control, adjustment of the mA a nd/or kV accordingto patient size (including appropriate matching first site-specific examinations), or use of iterative reconstruction technique. Comparison: CT scanof the chest performed 12/19/18 Findings: There is a small right pleural effusionw ith adjacent atelectasis. There is minimal left pleural fluid with adjacentatelecta sis. There is a pigtail catheter again identified on the left. The exactlocatio n of this catheter is difficult to ascertain benefits above the diaphragmto below the diaphragm. On today's study the tip appears to be located below thediaphragm. There is a small right pleural effusion with adjacent atelectasis.There is a G-tube i dentified in the stomach. The liver, gallbladder, spleen,pancreas, kidneys an d adrenal glands are unremarkable. No abdominal, pelvic oringuinal lymphadenop athy is identified. No free intraperitoneal fluid is noted.There is a ventral wall h ernia containing loops of what appear to be small bowelhowever are difficult to foll ow. There is mild perirectal stranding andpresacral edema correlate clinically. No dilated loops of bowel are identified.There is mild diverticulosis of the colon. The prostate, bladder and seminalvesicles appear unremarkable. The re are streak artifact obscuring portions ofthe pelvis due to a left hip ORIF. The re is subcutaneous gas identified alongthe right lower anterior pelvic wall.IMPRESS ION: There is a G-tube identified in the stomach. There is a tailcatheter identif ied on the left. The tip appears to be located below thediaphragm although is d ifficult to assess on CT. There is a small residualamount of pleural fluid as well as atelectasis along the left diaphragm. Thereis perirectal stranding and presacr al edema.Ct Thoracentesis Insrt Chest TubeResult Date: 12/19/2018History: Pleura l effusion. PROCEDURE: After being informed of the risks,benefits, and potential alt ernatives procedure informed consent was obtained.The patient was placed on the t able in the [id number] decubitus position.CT scanning was performed locat ion was chosen over the left flank. However, dueto the significant amount of patient motion and breathing motion was difficultto accurately assess a location for percuta neous paracentesis. Therefore, thiswas performed manually. After the chosen reg ion was prepped and draped in thenormal sterile fashion using maximum sterile ba rrier technique a lidocaineneedle was placed in the skin. This appeared to be in good position. Lidocainewas then used to anesthetize the skin and subcutaneous ti ssues in this location.Attempts were made to pass an 8 Congolese pigtail catheter throug h this location.However, patient continuous motion was significant as well as excess ivebreathing during the procedure. The catheter was placed at the same interspa ceas well as marked on the prior CT sequence however, due to the excessive patientmot ion the catheter was far more inferior within the chest that on the priorsequences. Th e catheter appeared to enter the hemiabdomen on the left from theleft chest. The cath eter was then pulled back to position where clear yellowfluid was aspirated. It was then sewn in position However, It appeared tomigrate forward and on the CT scanning appeared to again transgress thediaphragm. It was therefore pulled back to a point where only a clear fluid wasaspirated and respiratory variation was noted within t he tube. It was then sewnin position using 2-0 silk sutures. FINDINGS: Initial CT s debora revealed amoderate left pleural effusion. Attempts to nancy an adequate l ocation forpercutaneous thoracentesis were quite limited due to excessive patient m otionand breathing throughout the procedure. A location that appear to be a safelocat ion was marked. However, when the catheter was placed in this sameinterspace as wel l as marked the catheter appeared to be far more inferiorwithin the hemithorax than that seen previously. It appeared to enter the lefthemithorax inferiorly and transg ress the diaphragm with no evidence pathologicsequela. Therefore, it was pul led back into the pleural space for adequatedrainage. 130 cc of lightly bloo d-tinged fluid was aspirated. The catheter wasattached to a Pleur-evac and wall suc tion.IMPRESSION: Left-sided thoracentesis described above.Xr Chest PortResult Date : 01/10/2019XR CHEST PORT Clinical data: Sepsis Priors: 12/29/2018. Findings: Exam ination iscompromised due to limited inspiration and patient rotation. Heart size isunchanged. Haziness seen at the right lung base can be due to small effu sionwith atelectasis/infiltrate. No confluent left lung process is seen. No evidence of CHF.IMPRESSION: Limited study. Suspect right lung base process which ma y be due tosmall effusion with atelectasis/infiltrate.Xr Chest PortResu lt Date: 12/29/2018History: leukocytosis Technique: Portable chest x-ray 9 11:01 AMComparison: 12/25/2018. FINDINGS: There is a right lower lobe infiltrate o ratelectasis which is increased since prior exam. There is poor inspiration.There is a small left pleural effusion. The exam is rotated. Evaluation of thecardiac silhou ette is limited by projection. The visualized osseous structuresappear unremarkable.IM PRESSION: There is a right lower lobe infiltrate or atelectasis which isincrea sed since prior exam.Xr Chest PortResult Date: 12/18/2018Portable chest x-ray. PRIO R EXAM: 12/12/2018 and 11/25/2018 HISTORY: Pneumonia andpleural effusions FINDINGS: The heart is normal in size. The mediastinum andpulmonary vessels are unremarkable. T here is haziness within the lung basesbilaterally... The bony structures are intact.IMPRESSION: Haziness within the lung bases bilaterally that could repres entsmall pleural effusions and/or subsegmental atelectasis. Similar findin gs wereseen on prior exams.Duplex Upper Ext Venous LeftResult Date: 12/26/2018DUPLEX UPPER EXT VENOUS LEFT Clinical Data: Arm swelling, DVT suspectedFindings: The vis ualized segments of the left upper extremity venous circulationfrom the level of the subclavian vein to the brachial vein is compressible andshows normal phasic flow without an intraluminal thrombus. In addition, theinternal jugular vein and t he basilic vein is also patent. Extremely limitedexam because the patient was unab le to cooperate and this was done in a portablefashion.IMPRESSION: No evidence of deep vein thrombosis within the visualized left upperextremity venous circulation. Limited study.Duplex Lower Ext Venous BilatResult Date: 01/11/2019HISTORY: swel ling to lower extremities TECHNIQUE: Bilateral lower extremityvenous Doppler ultrasound Using real time and color-flow Doppler as well asspectral analysis and ultrasound examination was performed of the lowerextremities bilaterally. FINDINGS: On the right side the common femoral vein,superficial femoral vein along its entire course, as well as popliteal vein allappeared widely patent, were easily c ompressible, showed normal spontaneousflow. The calf veins were not visualized due t o body habitus. On the left sidethe common femoral vein, superficial femoral vein a long its entire course, aswell as popliteal vein all appeared widely patent, were ea sily compressible, andshowed normal spontaneous flow. The calf veins were no t visualized due to bodyhabitus.IMPRESSION: Normal bilateral lower extremity venous Doppler ultrasound with noevidence of deep vein thrombosis.Medications reviewedCurr ent Facility-Administered MedicationsMedication Dose Route Frequen cy acetylcysteine (MUCOMYST) 100 mg/mL (10 %) nebulizer solution 400 mg 4 mLNebuli zation BID RT multivit-folic acid- herbal 275 (WELLESSE PLUS) oral liquid 30 mL 30 mL Per GTube DAILY budesonide (PULMICORT) 500 mcg/2 ml nebulizer suspension 500 mcg N ebulizationBID RT sodium chloride (NS) flush 5-10 mL 5-10 mL IntraVENous PRN choles tyramine-aspartame (QUESTRAN LIGHT) packet 4 g 4 g Oral TID WITH MEALS cinacalcet ( SENSIPAR) tablet 60 mg 60 mg Oral DAILY lamoTRIgine (LaMICtal) tablet 50 mg 50 mg Per G Tube BID pantoprazole (PROTONIX) granules for oral suspension 40 mg 40 m g Per G TubeACB valproic acid (as sodium salt) (DEPAKENE) 250 mg/5 mL (5 mL) oral solution 750mg 750 mg Oral BID ALPRAZolam (XANAX) tablet 0.5 mg 0.5 mg Per G Tube QHS acetaminophen (TYLENOL) solution 650 mg 650 mg Oral Q4H PRN heparin (porcine) injection 5,000 Units 5,000 Units SubCUTAneous Q12H influenza vaccine 201 9-20 (65 yrs+)(PF) (FLUZONE HIGH-DOSE) injection 0.5 mL0.5 mL IntraMUSCular YUAN OR TO DISCHARGE albuterol-ipratropium (DUO-NEB) 2.5 MG-0.5 MG/3 ML 3 mL Nebul ization Q6H RTAssessment/Plan:Hospital Problems Date Reviewed: 01/14/2019 Codes Class Noted POA Acute respiratory failure with hypoxia (HCC) ICD-10-CM: J9 6.01ICD-9-CM: 518.81 01/10/2019 Unknown Pneumonia involving right lung ICD-10-CM : J18.9ICD-9-CM: 486 01/10/2019 Unknown Hyponatremia ICD-10-CM: E87.1ICD-9-CM: 2 76.1 01/10/2019 YesAssessment: Acute Respiratory Failure with Hypercapnia and HypoxiaPneumonia likely Aspiration RLLAtelectasisDysphagia s/p surgical jocelyn riley pegMentally challengedSeizureHyperparathyroidLeft an kle and pedal edema- ResolvedPlan:Continuous O2 NC/PRN Bipap per pulmonaryIV zosyn pe r IDNebulizersFollow culturesRestraints with mittsContinue with bolus TF for Bao Frankel MDKarmanos Cancer Center 2018Time: 11:49 PM Name Value Range Interpretation Code Description Data Harriett rce(s) Supporting Document(s ) ID Date Data Source [id number] 01/18/2019 07:22:47 AM EDT [facility] Review BIPAP settings, alarms and skin a dhesive With next shift RT Mayito. Name Value Range Interpretation Code Description Data Harriett rce(s) Supporting Document(s ) ID Date Data Source [id number] 01/18/2019 05:14:36 AM EDT [facility] Problem: Falls - Risk ofGoal: *Absence o f FallsDescriptionDocument Samra Fall Risk and appropriate interventions in the jhon wsheet.Outcome: Progressing Towards GoalNote:Fall Risk Interventions:Mobilit y Interventions: Bed/chair exit alarm, Patient to call before getting OOBMentat ion Interventions: Bed/chair exit alarm, Adequate sleep, hydration, paincontrol, More frequent rounding, Toileting roundsMedication Interventions: Bed/eris r exit alarmElimination Interventions: Bed/chair exit alarm, Toileting schedule /hourlyroundsHistory of Falls Interventions: Bed/chair exit alarm, Door open when pat ientunattendedProblem: Patient Education: Go to Patient Education ActivityGoal: Patie nt/Family EducationOutcome: Progressing Towards GoalProblem: Tissue Perfusion - Cardiopulmonary, AlteredGoal: *Absence of hypoxiaOutcome: Progressing Towards Goal Problem: Patient Education: Go to Patient Education ActivityGoal: Patient/Family E ducationOutcome: Progressing Towards Goal Name Value Range Interpretation Code Description Data Harriett rce(s) Supporting Document(s ) ID Date Data Source [id number] 01/18/2019 06:43:44 AM EDT [facility] Name Value Range Interpretation Description Data Sup porting Code Source(s) Document(s ) Leukocytes 7.6 K/uL 4.8-10.6 [facility] - [#/volume] in Good Blood by [facility] Erythrocytes 3.48 4.70-6.0 Below low normal [facility] - [#/volume] in M/uL 0 Good Blood by [facility] Automated [facility] Hemoglobin 11.5 14.0-18. Below low normal [facility] - [Mass/volume] in g/dL 0 Good Blood [facility] Hematocrit 35.4 % 42.0-52. Below low normal [facility] - [Volume 0 Good Fraction] of [facility] Blood by Hospital Automated count Erythrocyte mean 101.7 FL 81.0-94. Above high normal [facility] - corpuscular 0 Good volume [Entitic [facility] volume] by Hospital Automated count Erythrocyte mean 33.0 PG 27.0-35. [facility] - corpuscular 0 Good hemoglobin [facility] [Entitic mass] [facility] by Automated count Erythrocyte mean 32.5 30.7-37. [facility] - corpuscular g/dL 3 Good hemoglobin [facility] [Mass/volume] by Automated count Erythrocyte 16.2 % 11.5-14. Above high normal [facility] - distribution 0 Good width [Ratio] by [facility] Automated count [facility] Platelets 340 K/uL 130-400 [facility] - [#/volume] in [facility] Blood by [facility] Automated count [facility] Platelet mean 9.2 FL 9.2-11.8 [facility] - volume [Entitic Good volume] in [facility] by Automated Hospital count Segmented 62 % 48.0-72. [facility] - neutrophils/100 0 Good leukocytes in [facility] Lymphocytes/100 20 % 18.0-40. [facility] - leukocytes in 0 [facility] Monocytes/100 15 % 2.0-12.0 Above high normal [facility] - leukocytes in [facility] Eosinophils/100 3 % 0.0-7.0 [facility] - leukocytes in [facility] Basophils/100 0 % 0.0-3.0 [facility] - leukocytes in [facility] Segmented 4.5 K/UL 1.5-6.6 [facility] - neutrophils Good [#/volume] in [facility] Lymphocytes 1.6 K/UL 1.5-3.5 [facility] - [#/volume] in [facility] Monocytes 1.1 K/UL 0.0-1.0 Above high normal [facility] - [#/volume] in [facility] Eosinophils 0.2 K/UL 0.0-0.7 [facility] - [#/volume] in [facility] Basophils 0.0 K/UL 0.0-0.1 [facility] - [#/volume] in [facility] Differential [facility] - cell count [facility] method [facility] Immature 2 % 0.0-2.0 [facility] - granulocytes/100 Good leukocytes in [facility] Automated count ID Date Data Source [id number] 01/18/2019 05:21:17 AM EDT [facility] Name Value Range Interpretation Description Data Sup porting Code Source(s) Document(s ) Sodium 131 136-145 Below low normal [facility] - Good [Moles/volume] mmol/L [facility] in Serum or Hospital Plasma Potassium 4.4 3.5-5.1 [facility] - Good [Moles/volume] mmol/L [facility] in Serum or Hospital Plasma Chloride 92 98-107 Below low normal [facility] - Good [Moles/volume] mmol/L [facility] in Serum or Hospital Plasma Carbon 34 21-32 Above high normal [facility] - Good dioxide, total mmol/L [facility] [Moles/volume] Hospital in Serum or Plasma Anion gap in 10 10-20 [facility] - Good Serum or mmol/L [facility] Plasma Hospital Glucose 85 mg/dL 74-106 [facility] [Mass/volume] [facility] in Serum or Hospital Plasma Urea nitrogen 11 mg/dL 7-18 [facility] - Good [Mass/volume] [facility] in Serum or Hospital Plasma Creatinine 0.37 0.70-1.3 Below low normal [facility] - Good [Mass/volume] mg/dL 0 [facility] in Serum or Hospital Plasma Glomerular >60 [facility] - Good filtration [facility] rate/1.73 sq M Hospital predicted among blacks [Volume Rate/Area] in Serum or Plasma by Creatinine-bas ed formula (MDRD) Glomerular >60 [facility] - Good filtration [facility]ist rate/1.73 sq M Hospital predicted among non-blacks [Volume Rate/Area] in Serum or Plasma by Creatinine-bas ed formula (MDRD) Calcium 9.8 8.5-10.1 [facility] - Good [Mass/volume] mg/dL [facility] in Serum or Hospital Plasma Phosphate 2.0 2.5-4.9 Below low normal [facility] - Good [Mass/volume] mg/dL [facility] in Serum or Hospital Plasma Albumin 1.9 g/dL 3.5-4.7 Below low normal [facility] - Good [Mass/volume] [facility] in Serum or Hospital Plasma by Bromocresol purple (BCP) dye binding method ID Date Data Source [id number] 01/18/2019 05:21:17 AM EDT [facility] Name Value Range Interpretation Description Data Sup porting Code Source(s) Document(s ) Magnesium 2.0 mg/dL 1.6-2.6 [facility] - [facility] [Mass/volume] [facility] in Serum or Hospital Plasma ID Date Data Source [id number] 01/17/2019 07:18:47 PM EDT [facility] Bedside and Verbal shift change report carol pham to [facility], Ronald Rodríguez RN(oncoming nurse) by Yuki Ohara RN (offgo ing nurse). Report includedthe following information SBAR, Kardex, Intake/Output, MAR and Recent Results. Name Value Range Interpretation Code Description Data Harriett rce(s) Supporting Document(s ) ID Date Data Source [id number] 01/17/2019 02:19:48 PM EDT [facility] Progress NotePatient: Evelio Carlin Sex: male DOA: 01/10/2019Date of : 1950 Age: 68 y.o. :[id number]:Reyes Carlin is 68 y.o. male appearing comfortable.Wearing O2 NC, on nightly BI PAP.Pt presented to the ED from [facility] with medical history of Dysphagia ,s/p surgi inez placement of peg on 11/17/18, severe intellectual disability,Chronic respira tory failure, large Hiatal Hernia, hyperparathyroid unspecified,personal h/ o pulmonary embolus, anxiety disorder, kyphosis and schizophrenia. Ptis nonverb al at baseline and is unable to provide a history.Per long-term transfer record s, at 6 AM, patient was found Hypoxic, with O2SAT of 87 % on O2 NC 87 % on 4 LPM, h eart rated 111 BPM, blood pressure of 105/73, respiratoryrate of 30 andaudible wheeze. Nebulizer treatment was given. He was placed on a NRM withimproved O2 SAT to 95 % , his respiratory rate was 30 and he was afebrile. Thenursing home transfer r ecord reporting that the resident removes nasal canulaat times. In the ED pt appe aring lethargic and having mild respiratory distress.CXR showing haziness at the rig ht lung base due to small effusion withatelectasis/infiltrate. No confluen t left lung process is seen. Sodium .ABG with pH 7.46/53/66/38 O2 SA T 95 % on NC 4 LPM.The patient was admitted with encounter diagnosis of Acute Respir atory Failurewith hypercapnia and hypoxia, Pneumonia RLL likely Aspiration and Ate lectasis.Also, diag of Dysphagia s/p surgical placed peg, COPD, mentally challenged,se izure and hyperparathyroid are pertinent to this visit.The RN reporting that patient is tolerating his bolus tube feedings. CT scan chest wo contrast dated 01/10/19 dianna wed 1.8 cm nodule along the rightlateral wall of the trachea at the level of the thora cic inlet not obs on theprior study and can be due to a mucous plug.Follow up CT nelda st WC dated 01/15 with finding of tracheal nodule no longervisualized.Small left pl eural effuion with underlying passive atelectatic changes similarto prior stud y.Stable small right pleural effusion. Interval improvement in the rt lower lob elung infiltrate. No new lung findings seen. 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 Wearing O2 NC 2lpm w ith SAT 88-89 %Head: Normocephalic, without obvious abnormality, atraumatic.Eyes: Conjunctivae clear, anicteric sclerae. Pupils are equalNeck: Supple, symmetric al, no adenopathy, no carotid bruit and no JVD..Lungs: Clear to auscultation bila terally. No Wheezing or Rhonchi. No rales.Chest wall: No Accessory muscle u se.Heart: Regular rate and rhythm, no murmur, or rubAbdomen: Soft, non-tende r. Not distended. Bowel sounds normal. No massesExtremities: Extremities normal, a traumatic, No cyanosis. No edema. No clubbingSkin: Warm and dry. No rashe s or lesions. Not JaundicedLymph nodes: Cervical, supraclavicular normal.Psych: Not anxious or agitated.Neurologic: EOMs intact. No facial asymmetry. No aphasia or slurred speech.Generalized weakness,Alert and AwakeIntake and Output:Current Shift : No intake/output data recorded.Last three shifts: 01/14 701 - 01/15 1900In: 2310 Out: 2325 [Urine:2325]Lab/Data Reviewed:Recent Days:Recent Labs 01/14/1906WBC 5.7 4.4* 5.2HGB 11.6* 10.4* 11.0*HCT 35.3* 31.1* 33.9*PLT 282 239 262Recent Labs 01/14/1906NA 134* 137 134 *K 4.2 4.1 3.6CL 94* 99 95*CO2 32 36* 35*GLU 77 112* 93BUN 9 8 6*CREA 0.37* 0.38* 0.3 5*CA 8.9 8.4* 8.7MG 2.0 1.9 1.8PHOS 2.9 3.4 2.5ALB 2.0* 1.7* 1.9*No results for inpu t(s): PH, PCO2, PO2, HCO3, FIO2 in the last 72 hours.CULTURE, BLOOD [[id number]] (Order [id number])MicrobiologyDate: 01/10/2019 Department: [facility] 3t Med Surg Released By/ Authorizing: Wes Romero MD (auto-released)Specimen Information: Blo od Component Value Flag Ref Range Units StatusSpecial Requests: FinalNO SPE CIAL REQUESTSCulture result: NO GROWTH 5 DAYSCULTURE, BLOOD [[id number]] (Order [id number])MicrobiologyDate: 01/10/2019 Department: [facility] 3t Med Surg Released By/Authorizing: Wes Romero MD (auto-released)Specimen Information: Blo od Component Value Flag Ref Range Units StatusSpecial Requests: FinalNO SPE CIAL REQUESTSCulture result: NO GROWTH 5 DAYSCULTURE, URINE [[id number]] (Order [id number])MicrobiologyDate: 01/10/2019 Department: [facility] Med Surg Released By/Authorizing: Wes Romero MD (auto-released)Specimen Information: Neo an catch; Urine Component Value Flag Ref Range Units StatusSpecial Requests: FinalNO SPECIAL REQUESTSCulture result: NO GROWTH 1 DAY FinalXr Chest Sngl VRe sult Date: 12/25/2018Portable chest x-ray. PRIOR EXAM: X-ray 12/18/2018 HISTORY: Pneu monia FINDINGS:The heart is normal in size. The mediastinum and pulmonary vessels ar eunremarkable. There is a small right pleural effusion.. A tube projected overthe left upper quadrant of the abdomen..IMPRESSION: Small right pleural effusion.Ct Chest Wo ContResult Date: 01/10/2019CT CHEST WO CONT Clinical data: evaluation of pneumonia r t lung. Priors:12/18/2018 Technique: CT scan of the chest was performed from the thoraci c inletto below the diaphragm without administration of intravenous contrast. Theacquisition data was reviewed in the axial, sagittal and coronal plane.Utiliz ing silver holloware assembler algorithm the examination was performed to optimizeimaging quality by utilizing the lowest possible radiation dose. Findings: Thereis no evidence of p athological lymphadenopathy within the mediastinum, bilateralhilar and bilatera l axillary location. There is a 1.8 cm nodule along the rightwall of the trache a at the level of the thoracic inlet (best seen on image 13ofseries 2) not seen on the prior study. This may be due to a mucous plug. Noadditional endotracheal or endo bronchial lesion is noted.Normal heart size.Coronary artery calcifications note d. Atherosclerotic thoracic aorta withoutaneurysmal dilatation. Evaluation lung windows demonstrates patchy right lowerlobe lung infiltrate. There is asso ciated small right pleural effusion similarto prior. There is also small left pleural effusion with underlying passiveatelectasis slightly decreased from the prior study. No new lung pathology isobserved. Included upper abdominal organs: No significant p athology is observedwithin the visualized upper abdominal organs.IMPRESSION: Small bilateral pleural effusion. Right effusion is similar toprior study. Left effusion slightly decreased in size. Patchy right lungopacities which may be due to pneumo freddy similar to previous examinations. 1.8cm nodule along the right lateral wall of t he trachea at the level of thethoracic inlet not observed on the prior study and can be due to a mucous plug.Ct Chest Wo ContResult Date: 12/18/2018Referring Physi chaya: KRYSTIAN MONAE Patient Name: EVELIO CARLIN THIS IS AFINAL REPORT FROM [facility] DATE OF SERVICE: 2018-12-18 01:22:40 IMAGES:555 EXAM: CT CHEST WO CO NTRAST HISTORY: .. Right lower lobe atelectasis..TECHNIQUE: Helical axial im aging from the thoracic inlet through the adrenalglands without contrast. Sagittal and coronal reconstructions were obtained.COMPARISON: CT chest without co ntrast of 12/13/2018. FINDINGS: .. Evaluationremains limited due to lack of IV contrast and patient positioning. The imagedthyroid gland remains atrophic. Th e aorta remains normal in caliber.Atherosclerotic calcifications a re again seen in the aorta. There is againcardiomediastinal shift towards the right. The heart remains normal in size andno pericardial effusion is noted. No obvious lymphadenopathy seen on thisunenhanced scan. No pneumothorax is noted. Since the prior exam there is beenincrease in bilateral pleural effusi ons with associated consolidations. Acalcified granuloma is again seen in th e right lower lobe. The imaged upperabdomen does not demonstrate any gross acute maggy nges. Osteopenia is again noted.Degenerative changes again seen in the imaged spine. Old healed right posteriorlower rib fractures are again seen.IMPRESSION: .. Limited s tudy demonstrating increase in bilateral pleuraleffusions with associated consoli dations with persistent cardiomediastinal shifttowards the right. Stable findings as noted above.. One or more of the followingdose reduction techniques were used: automated exposure control, adjustment ofthe mA and/or kV according to patient size, use of iterative reconstructivetechnique. THIS DOCUMENT H BEEN ELECTRONICALLY SIGNED Kamran Gillette MD 12/18/2018 04:49 GINA Verde Please call [facility] [employer] Consult[facility] [phone] with questions. This report was electronically signed by: Tala MENDEZ 12/18/2018 04: 50 AMCta Up Ext Lt W ContResult Date: 12/18/2018History: Arm claudication. FINDI NGS: CTA of the left upper extremity wasperformed helically from level of the shoulder through the fingers after theintravenous administration of 119 cc of Isovue. Sagittal, coronal, and 3-Dreconstructed images obtained on an [employer] workstation are submitted. Noprior studies are available for comparison. Th e left subclavian artery is widelypatent. It is continuous with a widely patent left axillary artery. The axillaryartery is continuous with a widely patent left bra chial artery. The brachialartery bifurcates into a radial and ulnar artery just belo w the elbow. From thispoint distally streak artifact from patient positioning limits evaluation.However, the ulnar artery appears widely patent to the wrist. The radial a rteryis less well opacified but does appear patent to the wrist as well. Anintraosse ous artery also appears patent although it is poorly visualized aswell. The digital ar teries are not visualized on this study. There arebilateralpleural effusions note d both of which are moderate to large. Theeffusion on the left one is larger th an the right. Bibasilar atelectatic changethroughout much of the lower lobes is seen. There is a significant shift ofmediastinal structures to the right. T he liver is decreased in attenuationcompatible with fatty infiltr ation. The spleen is unremarkable. The adrenalglands are normal in appearance. The pancreas is grossly normal as is thegallbladder. A gastrostomy tube is no mikel in situ. The kidneys are unremarkable.There is a midline abdomina l wall hernia containing large and small bowel aswell as mesentery without eviden ce of obstruction. There is some presacralthickening and possibly some fr ee fluid noted. The patient is status post ORIFof the left hip with metallic hardwa re in situ.IMPRESSION: Patent left upper extremity arterial vessels although eval uationdistally is limited. Bilateral pleural effusions and bibasilar atelectasis.Shif t of mediastinal structures to the right.Ct Abd Pelv Wo ContResult Date: 12/21/2018His tory: ? Maturity of g-tube tract Technique: CT of the abdomen and pelvis wasperforme d from the dome of the diaphragm to the pubic symphysis without oral orintravenous con trast with dose lowering techniques. Sagittal and coronalreconstructions were performe d. Evaluation of solid abdominal viscera iscompromised by by the lack of intraven ous contrast. Evaluation of the bowelloops is compromised lack of oral contrast. All C T scans at this facility areperformed using dose optimization technique as appropria te to a performed exam,to include automated exposure control, adjustment of the mA a nd/or kV accordingto patient size (including appropriate matching first site-specific examinations), or use of iterative reconstruction technique. Comparison: CT scanof the chest performed 12/19/18 Findings: There is a small right pleural effusionw ith adjacent atelectasis. There is minimal left pleural fluid with adjacentatelecta sis. There is a pigtail catheter again identified on the left. The exactlocatio n of this catheter is difficult to ascertain benefits above the diaphragmto below the diaphragm. On today's study the tip appears to be located below thediaphragm. There is a small right pleural effusion with adjacent atelectasis.There is a G-tube i dentified in the stomach. The liver, gallbladder, spleen,pancreas, kidneys an d adrenal glands are unremarkable. No abdominal, pelvic oringuinal lymphadenop athy is identified. No free intraperitoneal fluid is noted.There is a ventral wall h ernia containing loops of what appear to be small bowelhowever are difficult to foll ow. There is mild perirectal stranding andpresacral edema correlate clinically. No dilated loops of bowel are identified.There is mild diverticulosis of the colon. The prostate, bladder and seminalvesicles appear unremarkable. The re are streak artifact obscuring portions ofthe pelvis due to a left hip ORIF. The re is subcutaneous gas identified alongthe right lower anterior pelvic wall.IMPRESS ION: There is a G-tube identified in the stomach. There is a tailcatheter identif ied on the left. The tip appears to be located below thediaphragm although is d ifficult to assess on CT. There is a small residualamount of pleural fluid as well as atelectasis along the left diaphragm. Thereis perirectal stranding and presacr al edema.Ct Chest W Cont F/uResult Date: 01/15/2019CT CHEST W CONT F/U Clinical da ta: R U L NODULE NEAR TRACHEA / BLOOD VESSEL.Priors: 01/10/2019. Technique: CT scan of the chest was performed from thethoracic inlet to below the diaphragm following administration of intravenouscontrast. The acquisition da ta was reviewed in the axial, sagittal and coronalplane. 100 cc of low osmolar iodi nated contrast-isovue 300 was injectedintravenously for the examinatio n. Utilizing silver holloware assembler algorithm theexamination was performed to optimize imaging quality by utilizing the lowestpossible radiation dose. Findings: There is no evidence of pathologicallymphadenopathy within the m ediastinum, bilateral hilar and bilateral axillarylocation. There is no evidence of a central endobronchial or an endotrachealmass. Previously seen nodule along the right lateral wall of the trachea nolonger visualized. This may have repr esented a mucus lung which has dislodged.Coronary artery calcifications noted. Atherosclerotic thoracic aorta withoutaneurysmal dilatation. Elevated l eft hemidiaphragm. There is a small leftpleural effusion with underlying pas sive atelectatic changes similar to priorstudy. Improved previously seen ri ght lower lobe lung infiltrate. There isassociated small right pleural effusio n similar to prior examination. No newlung pathology is observed. Included upper ab dominal organs: No significantpathology is observed within the visualized upper abd ominal organs.IMPRESSION: 1. Previously seen tracheal nodule is no longer visualized. 2.Small left pleural effusion with underlying passive atelectatic changes s imilarto prior study. Stable elevation of the left hemidiaphragm. 3. Stable small right pleural effusion. Interval improvement in the right lower lobe lunginfiltrate. No new lung findings seen.Ct Thoracentesis Insrt Chest TubeResult Date: 12/19/2018His tory: Pleural effusion. PROCEDURE: After being informed of the risks,benefits, an d potential alternatives procedure informed consent was obtained.The patient was jocelyn riley on the table in the [id number] decubitus position.CT scanning was perfo rmed location was chosen over the left flank. However, dueto the significant amount of patient motion and breathing motion was difficultto accurately assess a location for percutaneous paracentesis. Therefore, thiswas performed manually. After the ch osen region was prepped and draped in thenormal sterile fashion using maximum sterile barrier technique a lidocaineneedle was placed in the skin. This appeared to be in good position. Lidocainewas then used to anesthetize the skin and subcutaneous tissues in this location.Attempts were made to pass an 8 Congolese pigtail catheter thr ough this location.However, patient continuous motion was significant as wel l as excessivebreathing during the procedure. The catheter was placed at the same inte rspaceas well as marked on the prior CT sequence however, due to the excessive p atientmotion the catheter was far more inferior within the chest that on the pr iorsequences. The catheter appeared to enter the hemiabdomen on the left from theleft chest. The catheter was then pulled back to position where clear yellowfluid was asp irated. It was then sewn in position However, It appeared tomigrate forward and on the CT scanning appeared to again transgress thediaphragm. It was therefore pulled ba ck to a point where only a clear fluid wasaspirated and respiratory variation w as noted within the tube. It was then sewnin position using 2-0 silk sutures. FINDING S: Initial CT scanning revealed amoderate left pleural effusion. Attempts to nancy an adequate location forpercutaneous thoracentesis were quite limited due to excessive patient motionand breathing throughout the procedure. A location myrtle t appear to be a safelocation was marked. However, when the catheter was placed in this sameinterspace as well as marked the catheter appeared to be far more inferio rwithin the hemithorax than that seen previously. It appeared to enter the lef themithorax inferiorly and transgress the diaphragm with no evidence pathologicseq uela. Therefore, it was pulled back into the pleural space for adequatedrainage. 130 cc of lightly blood-tinged fluid was aspirated. The catheter wasattached to a Pleur-evac and wall suction.IMPRESSION: Left-sided thoracentesis described above .Xr Chest PortResult Date: 01/10/2019XR CHEST PORT Clinical data: Sepsis Priors: 2018. Findings: Examination iscompromised due to limited inspiration and patient rotat ion. Heart size isunchanged. Haziness seen at the right lung base can be due to sma ll effusionwith atelectasis/infiltrate. No confluent left lung process is seen. No evidence of CHF.IMPRESSION: Limited study. Suspect right lung base process which ma y be due tosmall effusion with atelectasis/infiltrate.Xr Chest PortResu lt Date: 12/29/2018History: leukocytosis Technique: Portable chest x-ray 9 11:01 AMComparison: 12/25/2018. FINDINGS: There is a right lower lobe infiltrate o ratelectasis which is increased since prior exam. There is poor inspiration.There is a small left pleural effusion. The exam is rotated. Evaluation of thecardiac silhou ette is limited by projection. The visualized osseous structuresappear unremarkable.IM PRESSION: There is a right lower lobe infiltrate or atelectasis which isincrea sed since prior exam.Xr Chest PortResult Date: 12/18/2018Portable chest x-ray. PRIO R EXAM: 12/12/2018 and 11/25/2018 HISTORY: Pneumonia andpleural effusions FINDINGS: The heart is normal in size. The mediastinum andpulmonary vessels are unremarkable. T here is haziness within the lung basesbilaterally... The bony structures are intact.IMPRESSION: Haziness within the lung bases bilaterally that could repres entsmall pleural effusions and/or subsegmental atelectasis. Similar findin gs wereseen on prior exams.Duplex Upper Ext Venous LeftResult Date: 12/26/2018DUPLEX UPPER EXT VENOUS LEFT Clinical Data: Arm swelling, DVT suspectedFindings: The vis ualized segments of the left upper extremity venous circulationfrom the level of the subclavian vein to the brachial vein is compressible andshows normal phasic flow without an intraluminal thrombus. In addition, theinternal jugular vein and t he basilic vein is also patent. Extremely limitedexam because the patient was unab le to cooperate and this was done in a portablefashion.IMPRESSION: No evidence of deep vein thrombosis within the visualized left upperextremity venous circulation. Limited study.Duplex Lower Ext Venous BilatResult Date: 01/11/2019HISTORY: swel ling to lower extremities TECHNIQUE: Bilateral lower extremityvenous Doppler ultrasound Using real time and color-flow Doppler as well asspectral analysis and ultrasound examination was performed of the lowerextremities bilaterally. FINDINGS: On the right side the common femoral vein,superficial femoral vein along its entire course, as well as popliteal vein allappeared widely patent, were easily c ompressible, showed normal spontaneousflow. The calf veins were not visualized due t o body habitus. On the left sidethe common femoral vein, superficial femoral vein a long its entire course, aswell as popliteal vein all appeared widely patent, were ea sily compressible, andshowed normal spontaneous flow. The calf veins were no t visualized due to bodyhabitus.IMPRESSION: Normal bilateral lower extremity venous Doppler ultrasound with noevidence of deep vein thrombosis.Medications reviewedCurr ent Facility-Administered MedicationsMedication Dose Route Frequen cy multivit-folic acid-herbal 275 (WELLESSE PLUS) oral liquid 30 mL 30 mL Per GTube DAILY acetylcysteine (MUCOMYST) 100 mg/mL (10 %) nebulizer solution 600 mg 6 mLNe bulization BID budesonide (PULMICORT) 500 mcg/2 ml nebulizer suspension 500 mcg N ebulizationBID RT sodium chloride (NS) flush 5-10 mL 5-10 mL IntraVENous PRN choles tyramine-aspartame (QUESTRAN LIGHT) packet 4 g 4 g Oral TID WITH MEALS cinacalcet ( SENSIPAR) tablet 60 mg 60 mg Oral DAILY lamoTRIgine (LaMICtal) tablet 50 mg 50 mg Per G Tube BID pantoprazole (PROTONIX) granules for oral suspension 40 mg 40 m g Per G TubeACB valproic acid (as sodium salt) (DEPAKENE) 250 mg/5 mL (5 mL) oral solution 750mg 750 mg Oral BID ALPRAZolam (XANAX) tablet 0.5 mg 0.5 mg Per G Tube QHS acetaminophen (TYLENOL) solution 650 mg 650 mg Oral Q4H PRN heparin (porcine) injection 5,000 Units 5,000 Units SubCUTAneous Q12H influenza vaccine 201 9-20 (65 yrs+)(PF) (FLUZONE HIGH-DOSE) injection 0.5 mL0.5 mL IntraMUSCular YUNA OR TO DISCHARGE albuterol-ipratropium (DUO-NEB) 2.5 MG-0.5 MG/3 ML 3 mL Nebul ization Q6H RT piperacillin-tazobactam (ZOSYN) 3.375 g in 0.9% sodium chloride (MBP/ADV) 100mL MBP 3.375 g IntraVENous X6CHrwozehdpl/Plan:Hospital Problems Da te Reviewed: 01/14/2019 Codes Class Noted POA Acute respiratory failure with hypoxia (HCC) ICD-10-CM: J96.01ICD-9-CM: 518.81 01/10/2019 Unknown Pneumonia invo lving right lung ICD-10-CM: J18.9ICD-9-CM: 486 01/10/2019 Unknown Hyponatremia ICD- 10-CM: E87.1ICD-9-CM: 276.1 01/10/2019 YesAssessment:Lung nodule right lateral wall of trachea(seen on CT wo contrast) Acute Respiratory Failure with Hypercapn ia and HypoxiaPneumonia likely Aspiration RLLAtelectasisDysphagia s/p surgical jocelyn riley pegMentally challengedSeizureHyperparathyroidLeft an kle and pedal edema- Resolved(DVT Ruled OUT)Plan:Continuous O2 NC incr to 4 lpm; nightly Bipap per pulmonaryIV zosyn per IDNebulizersFollow culturesRestraints wi th mitts PRNContinue with bolus TF for Marco HillsChristofer 2018Time : 4:02 AM Name Value Range Interpretation Code Description Data Harriett rce(s) Supporting Document(s ) ID Date Data Source [id number] 01/17/2019 02:08:54 PM EDT [facility] PULMONARY/ CCM- Consult NotePatient: Ivelisse Carlin Sex: male DOA: 01/10/2019Date of : 1 Age: 68 y.o. LOS: LOS: 7 daysHPI: step down.Evelio Carlin is a 68 y.o. 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 Authoriz ing ProvidervalACYclovir (VALTREX) 1 gram tablet Take 1,000 mg by mouth two (2) ti mes a day.Yes Provider, Historicalacetaminophen (TYLENOL) 325 mg suppository Insert 650 mg into rectum every four(4) hours as needed for Fever. Yes Provider, Historicalclorazepate (TRANXENE) 3.75 mg tablet 1 Tab by Per G Tube route nightly. MaxDaily Amount: 3.75 mg. 12/30/18 Mili Hills DOmultivitamin (ONE A D AY) tablet 1 Tab by Per G Tube route daily. 12/30/18Mili Hills DOcinacalcet (SE NSIPAR) 30 mg tablet Take 2 Tabs by mouth daily. 12/30/18 Mili Hills DOlamoT RIgine (LAMICTAL) 25 mg tablet 2 Tabs by Per G Tube route two (2) times aday. 12/30/18 Mili Hills DOalbuterol-ipratropium (DUO-NEB) 2.5 mg-0.5 mg/3 ml nebu 3 mL b y Nebulizationroute every six (6) hours. Every 6 hours while awake 12/30/18 Yonatan onMili DOalbuterol-ipratropium (DUO-NEB) 2.5 mg-0.5 mg/3 ml nebu 3 mL by Nebuliza tionroute every four (4) hours as needed for Cough (wheezing, shortness of breath). Mili Hills DObudesonide (PULMICORT) 0.5 mg/2 mL nbsp 2 mL by Neb ulization route two (2) timesa day. 12/30/18 Mili Hills DObacitracin 500 unit/g escobar ointment Apply 1 Packet to affected area two (2) timesa day. Indications: minor s kin infection due to bacteria, facial scabs 12/30/18Mili Hills DOcholestyramine -aspartame (QUESTRAN LIGHT) 4 gram packet Take 1 Packet by mouththree (3) times da pierre (with meals). 12/30/18 Mili Hills DOpantoprazole (PROTONIX) 40 mg granules for oral suspension 40 mg by Per G Tuberoute Daily (before breakfast). 11/28/18 Yonatan onMili DOvalproate (DEPAKENE) 250 mg/5 mL syrup Take 750 mg by mouth two (2) ti mes a day.Provider, HistoricalNo Known AllergiesNo past surgical history on yoshi e.No family history on file.Social HistorySocioeconomic History Marital st atus: SINGLE Spouse name: Not on file Number of children: Not on file Years o f education: Not on file Highest education level: Not on fileTobacco Use Smoking s tatus: Never Smoker Smokeless tobacco: Never UsedSubstance and Sexual Activity Alcoh ol use: No Drug use: NoReview of SystemsPertinent items are noted in the History of Present Illness.Physical Exam:Current medications:Current Facilit y-Administered Medications: acetylcysteine (MUCOMYST) 100 mg/mL (10 %) nebulizer so lution 400 mg, 4 mL,Nebulization, BID RT, Krystian Monae MD, 400 mg at 01/17/19 08 37 multivit-folic acid-herbal 275 (WELLESSE PLUS) oral liquid 30 mL, 30 mL, PerG Tub e, DAILY, Mili Hills DO, 30 mL at 01/17/19 0839 budesonide (PULMICORT) 5 00 mcg/2 ml nebulizer suspension, 500 mcg,Nebulization, BID RT, Cesar Hills DO, 500 mcg at 01/17/19 0837 sodium chloride (NS) flush 5-10 mL, 5-10 mL, In traVENous, PRN, Wes Romero MD cholestyramine-aspartame (QUESTRAN LIGHT ) packet 4 g, 4 g, Oral, TID WITHMEALS, Mili Hills DO, 4 g at 01/17/19 123 0 cinacalcet (SENSIPAR) tablet 60 mg, 60 mg, Oral, DAILY, Mili Hills DO,60 mg at 01/17/19 0839 lamoTRIgine (LaMICtal) tablet 50 mg, 50 mg, Per G Tube, BID, Ne lsMili rosenberg DO, 50 mg at 01/17/19 0839 pantoprazole (PROTONIX) granules for ora l suspension 40 mg, 40 mg, Per GTube, ACB, Mili Hills DO, 40 mg at 01/17/19 0 839 valproic acid (as sodium salt) (DEPAKENE) 250 mg/5 mL (5 mL) oral solut qgq793 mg, 750 mg, Oral, BID, Mili Hills DO, 750 mg at 01/17/19 0839 A LPRAZolam (XANAX) tablet 0.5 mg, 0.5 mg, Per G Tube, QHS, Mili Hills DO, 0.5 mg at 01/16/19 2110 acetaminophen (TYLENOL) solution 650 mg, 650 mg, Oral, Q4H PRN, Mili Hills DO heparin (porcine) injection 5,000 Units, 5,000 Units, SubC UTAneous, Q12H,Mili Hills DO, 5,000 Units at 01/17/19 1230 influenza vacci ne 2019- (65 yrs+)(PF) (FLUZONE HIGH-DOSE) injection 0.5 mL,0.5 mL, IntraMUSCular, PRIOR TO DISCHARGE, Mili Hills DO albuterol-ipratropium (DUO-NEB) 2.5 MG-0 .5 MG/3 ML, 3 mL, Nebulization, Q6HRT, Krystian Monae MD, 3 mL at 01/17/19 1319 DataVisit VitalsBP 112/56 (BP 1 Location: Right arm, BP Patient Position: At rest) Pulse 86Temp 98.6 F (37 C)Resp 20Ht 5' 2" (1.575 m)Wt 56.4 kg (124 lb 4.8 oz)SpO2 95%BMI 22.73 kg/m Intake and Output:Date 01/16/19 0700 - 01/17/19 0659 01/17/19 0 700 - 01/18/19 0659Shift 4924-5110 3216-5223 24 Hour Total 8796-2391 3250-9239 24 Tammy r TotalINTAKEI.V.(mL/kg/hr) 200(0.3) 200(0.1) 100 100 Volume (piperacillin- tazobactam (ZOSYN) 3.375 g in 0.9% sodium chloride(MBP/ADV) 100 mL MBP) 200 200 1 00 100NG/GT 8337 307 0504 920 920 Water Flush Volume (mL) (PEG/Gastrostomy Tube) 200 200 400 200 200 Medication Volume (PEG/Gastrostomy Tube) 380 120 500 480 480 Intake (ml) (PEG/Gastrostomy Tube) 132 212 8416 240 240Shift Total(mL/kg) 1400 (24.8) 800(14.2) 2200(39) 1020(18.1) 1020(18.1)OUTPUTUrine(mL/kg/hr) 450(0.7) 950(1.4) 1400(1) Urine Voided 450 450 Urine Output (mL) (Condom Catheter 01/16) 450 500 950Shift Total(mL/kg) 450(8) 950(16.8) 1400(24.8)NET 950 -150 800 102 0 1020Weight (kg) 56.4 56.4 56.4 56.4 56.4 56.4Pulse OX:SpO2 Readings from Last 6 E ncounters:01/17/19 95%12/30/18 96%11/27/18 91%09/26/15 96%@LASTSAO2(6)@PHYSICAL EXA M:General: Lethargic,responding.Head: Normocephalic, without obvious abnormali ty, atraumatic.Eyes: Conjunctivae clear, anicteric sclerae. Pupils are equalNose : Nares normal. No drainage or sinus tenderness.Throat: Lips, mucosa, and tongue normal. No ThrushNeck: Supple, symmetrical, no adenopathy, thyroid: no n tender no carotid bruit and no JVD.Back: Symmetric, No CVA tenderness.Lungs: Scattered rhonchi,Chest wall: No tenderness or deformity. No Accessory muscle use.He art: Regular rate and rhythm, no murmur, rub or gallop.Abdomen: Soft, non-tende r. Not distended. Bowel sounds normal. No massesExtremities: Extremities normal, a traumatic, No cyanosis. No edema. No clubbingSkin: Texture, turgor normal . No rashes or lesions. Not JaundicedLymph nodes: Cervical, supraclavicular normal. Psych: Good insight. Not depressed. Not anxious or agitated.Neurologic: EOMs int act. No facial asymmetry. No aphasia or slurred speech.Most recent labs:Recent L abs 01/16/1905WBC 5.9 6.7 5.7HGB 11.2* 11. 0* 11.6*HCT 34.1* 34.1* 35.3*PLT 299 266 282Recent Labs 01/16/1905 5 NA 131* 133* 134*K 4.3 4.2 4.2CL 93* 95* 94*CO2 37* 37* 32GLU 78 11 9* 77BUN 8 10 9CREA 0.37* 0.52* 0.37*CA 9.1 9.5 8.9MG 1.9 2.1 2.0PHOS 2.5 2.5 2.9ALB 1.8* 1.8* 2.0*No results for input(s): PH, PCO2, PO2, HCO3, FIO2 in the last 72 tammy rs.ABG:No results for input(s): PH, PCO2, PO2, HCO3, FIO2 in the last 72 hours.Cul tures:No results found for: SDESLab ResultsComponent Value Date/Time Culture result: NO GROWTH 1 DAY 01/10/2019 08:58 AM Culture result: NO GROWTH 5 DAYS 019 07:55 AM Culture result: NO GROWTH 5 DAYS 01/10/2019 07:40 AM Culture result: NO G ROWTH 5 DAYS 12/29/2018 11:23 AM Culture result: NO GROWTH 5 DAYS 12/29/2018 11:0 0 AM Culture result: 10,000 to 50,000 COLONIES/mL KLEBSIELLA PNEUMONIAE (A) 11:00 AM Culture result: 50,000-100,000 COLONIES/mL PSEUDOMONAS A ERUGINOSA (A)12/29/2018 11:00 AM Culture result: (A) 12/29/2018 11:00 AM 10,000 to 50,000 COLONIES/mL STAPHYLOCOCCUS EPIDERMIDIS Culture result: NO GROWTH 2 DAYS 12/24/2018 09:45 AM Culture result: NO GROWTH 5 DAYS 12/23/2018 12:00 PM Cultur e result: NO GROWTH 5 DAYS 12/23/2018 11:40 AM Culture result: NO GROWTH 4 DAYS 09/2018 12:30 PM Culture result: NO GROWTH 4 DAYS 12/19/2018 12:30 PM Culture result: NO GROWTH 1 DAY 12/12/2018 08:04 PM Culture result: NO GROWTH 5 DAYS 12/12/2018 07:4 0 PM Culture result: NO GROWTH 5 DAYS 12/12/2018 07:40 PM Culture result: NO G ROWTH 2 DAYS 11/20/2018 09:00 AM Culture result: NO GROWTH 5 DAYS 11/07/2018 08:1 0 PM Culture result: NO GROWTH 5 DAYS 11/07/2018 08:00 PMImages:Cta Chest W Or W Wo ContResult Date: 11/08/2018Examination: CTA Chest ? PE angiography History: Hypo magdy; rule out pneumoniaversus pulmonary embolism Priors: None Technique: Low-d ose, multiplanar,helical CTA chest was performed with bolus IV injection from lung apices tobases. 3D-reformatted images were obtained and reviewed on a [employer] d viewingworkstation and directly supervised. Contrast: A total of 71 mL of Isovue-370 was administered intravenously for this procedure. Findings: No evidence ofpulmo nary embolism is seen. There is decreased size of the right hemithorax fromchronic scarring and retraction with mediastinal shift left to right.Additional area of c onsolidation is seen in the right lower lobe and suggestssuperimposed pneumonia with subsegmental atelectasis. Subsegmental atelectasisis also noted in the left jorge g base, with pleural parenchymal scarring. Lowlung volumes are seen. No pneumothora x seen. Aorta normal in caliber withoutaneurysm or dissection. Mediastin um no adenopathy. Mediastinal shift is seen inthe left and right as a result of chr onic changes in the right hemithorax.Heart shows no chamber enlargement or pericard ial effusion. No acute fracturesseen in the bony thorax, sternum, manubrium and rib cage. Multiple compressiondeformities are seen in the mid and lower thoracic spine , with superimposedspondyloarthropathy. Cannot exclude acute fracture.Impression : No evidence of pulmonary embolism Right lower lobe pneumoniasuggested. Incidenta l scarring and retraction in the right hemithorax fromremote/chronic inflammato ry disease and/or trauma. Bibasilar subsegmentalatelectasis. Report Electron ically Signed By: Pawel Zafar M.D. -11/08/2018 12:40 AMXr Chest PortResult D ate: 11/07/2018XR CHEST PORT CLINICAL INDICATION PROVIDED:. "sob." COMPARISON: . 09/26/2015.FINDINGS:. The pericardial/cardiac silhouette is enlarg ed in the transversedimension. There is no pulmonary vascular congestion or interst itial edema.Linear density in the left lung base and faint densities in the right mi d tolower lung likely represent atelectasis. There is no lobar consolidation oreffusi on. There is no pneumothorax.IMPRESSION:. Bilateral lower lung atelectasis. No donna dence of consolidation oreffusion.Assessment/PlanActive Problem s: Acute respiratory failure with hypoxia (HCC) (01/10/2019) Pneumonia involving r ight lung (01/10/2019) Hyponatremia (01/10/2019) Acute resp failure combined, pneumonia acute copd exacerbation pe ruled out.PLAN,Monitoring,bipap prn for resp d istressIvabx as per id,Steroid nebbipap prn and at night.Neb,feeding started.D/w mason sing staff.Stella Hamilton MDOctober 2018The billing code submitted [facility] with this evaluation also includes thetime to review patient's prior record s, communicate with the physician team,obtain corroborating data, and discuss the risk and benefits of the proposedmanagement plan with the patient and their family >30 mi nutes. Name Value Range Interpretation Code Description Data Harriett rce(s) Supporting Document(s ) ID Date Data Source [id number] 01/17/2019 11:06:25 AM EDT [facility] Progress NotePatient: Evelio Carlin Sex: male DOA: 01/10/2019Date of : 1950 Age: 68 y.o. :[id number]:Reyes Carlin is 68 y.o. male Who is more awake and alert. He is appearingcomfortable. He is pulling off his nasal canula. The RN is requestingrestraints.Will order Mitts for restraints.Pt Presented to the ED from [facility] with medical history of Dysphagia ,s/p surgical placement of peg on 11/17/18, severe intellectual disability,Chronic respiratory failure, large Hiatal Hernia, hyperparathyroid unspecified,personal h/ o pulmonary embolus, anxiety disorder, kyphosis and schizophrenia. Ptis nonverb al at baseline and is unable to provide a history.Per long-term transfer record s, at 6 AM, patient was found Hypoxic, with O2SAT of 87 % on O2 NC 87 % on 4 LPM, h eart rated 111 BPM, Blood Pressure of 105/73, respiratoryrate of 30 andaudible wheeze. Nebulizer treatment was given. He was placed on a NRM withimproved O2 SAT to 95 % , his respiratory rate was 30 and he was afebrile. Thenursing home transfer r ecord reporting that the resident removes nasal canulaat times. In the ED pt appe aring lethargic and having mild respiratory distress.CXR showing haziness at the rig ht lung base due to small effusion withatelectasis/infiltrate. No confluen t left lung process is seen. 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 Pupils are equalNeck: Supple, symmetrical, no adenopathy, no carotid bruit and no JVD.Lungs: Clear to auscultation bilaterally. No Wheezing o r Rhonchi. No rales.Chest wall: No Accessory muscle use.Heart: Regular ra te and rhythm, no murmur, or rubAbdomen: Positive Peg in place, soft non-tender. Not distended. Bowel soundsnormal. No massesExtremities: Extremities normal, a traumatic, No cyanosis. No edema. No clubbingSkin: Warm and dry. No rashe s or lesions. Not JaundicedLymph nodes: Cervical, supraclavicular normal.Psych: Not anxious or agitated.Neurologic: EOMs intact. No facial asymmetry. No aphasia or slurred speech.Generalized weakness, non ambulatory at baseline,, Alert and Awake .Intake and Output:Current Shift: 01/17 701 - 01/17 1900In: 440 [I.V.:100]Out: -Last three shifts: 01/15 1901 - 01/17 700In: 4300 [I.V.:1500]Out: 1999 [Urine:1999]La b/Data Reviewed:Recent Days:Recent Labs 01/16/1905WB C 5.9 6.7 5.7HGB 11.2* 11.0* 11.6*HCT 34.1* 34.1* 35.3*PLT 299 266 282Recent Labs 1 01/16/1905NA 131* 133* 134*K 4.3 4.2 4.2CL 93* 95* 94*CO2 37* 37* 32GLU 78 119* 77BUN 8 10 9CREA 0.37* 0.52* 0.37*CA 9.1 9.5 8.9MG 1.9 2.1 2.0P HOS 2.5 2.5 2.9ALB 1.8* 1.8* 2.0*No results for input(s): PH, PCO2, PO2, HCO3, FIO2 in the last 72 hours.CULTURE, BLOOD [[id number]] (Order [id number])MicrobiologyDate: 2018 Department: [facility] Released By/Authorizing: Wes Romero MD (a cto-released)Specimen Information: Blood Component Value Flag Ref Range Units Sta tusSpecial Requests: PreliminaryNO SPECIAL REQUESTSCulture result: NO GROWT H 3 DAYSCULTURE, BLOOD [[id number]] (Order [id number])MicrobiologyDate: 01/10/2019 De partment: [facility] Released By/Authorizing: Wes Romero MD (a uto-released)Specimen Information: Blood Component Value Flag Ref Range Units Sta tusSpecial Requests: PreliminaryNO SPECIAL REQUESTSCulture result: NO GROWT H 3 DAYSCULTURE, URINE [[id number]] (Order [id number])MicrobiologyDate: 01/10/2019 De partment: [facility] Released By/Authorizing: Wes Romero MD (a uto-released)Specimen Information: Clean catch; Urine Component Value Flag Ref Ra nge Units StatusSpecial Requests: FinalNO SPECIAL REQUESTSCulture result: NO GROWTH 1 DAY FinalXr Chest Sngl VResult Date: 12/25/2018Portable chest x- ray. PRIOR EXAM: X-ray 12/18/2018 HISTORY: Pneumonia FINDINGS:The heart is normal i n size. The mediastinum and pulmonary vessels areunremarkable. There is a small right pleural effusion.. A tube projected overthe left upper quadrant of the abdomen..IMPR ESSION: Small right pleural effusion.Ct Chest Wo ContResult Date: 01/10/2019CT CHEST WO CONT Clinical data: evaluation of pneumonia rt lung. Priors:12/18/2018 Technique: CT s can of the chest was performed from the thoracic inletto below the diaphragm wit hout administration of intravenous contrast. Theacquisition data was reviewed in the axial, sagittal and coronal plane.Utilizing silver holloware assembler algorithm the examination w as performed to optimizeimaging quality by utilizing the lowest possible radiation dose. Findings: Thereis no evidence of pathological lymphadenopathy within the mediastinum, bilateralhilar and bilateral axillary location. There is a 1.8 cm no dule along the rightwall of the trachea at the level of the thoracic inlet (best se en on image 13ofseries 2) not seen on the prior study. This may be due to a mucou s plug. Noadditional endotracheal or endobronchial lesion is noted.Normal hea rt size.Coronary artery calcifications noted. Atherosclerotic thoracic aorta withouta neurysmal dilatation. Evaluation lung windows demonstrates patchy right lowerlobe lung infiltrate. There is associated small right pleural effusion similarto prior. There is also small left pleural effusion with underlying passiveatelectasis slightly d ecreased from the prior study. No new lung pathology isobserved. Included upper abd ominal organs: No significant pathology is observedwithin the visualized upper abdo wanda organs.IMPRESSION: Small bilateral pleural effusion. Right effusion is sim ilar toprior study. Left effusion slightly decreased in size. Patchy right lungopa cities which may be due to pneumonia similar to previous examinations. 1.8cm nodule along the right lateral wall of the trachea at the level of thethoracic inlet not ob served on the prior study and can be due to a mucous plug.Ct Chest Wo ContResult Date: 12/18/2018Referring Physician: KRYSTIAN MONAE Patient Name: EVELIO CARLIN THIS IS AFINAL REPORT FROM [facility] DATE OF SERVICE: 2018-12-18 01:22:40 IMAGES:555 EXAM: CT CHEST WO CONTRAST HISTORY: .. Right lower lobe atelectasis..TECHNIQUE: Helic al axial imaging from the thoracic inlet through the adrenalglands without contra st. Sagittal and coronal reconstructions were obtained.COMPARISON: CT chest without co ntrast of 12/13/2018. FINDINGS: .. Evaluationremains limited due to lack of IV contrast and patient positioning. The imagedthyroid gland remains atrophic. Th e aorta remains normal in caliber.Atherosclerotic calcifications a re again seen in the aorta. There is againcardiomediastinal shift towards the right. The heart remains normal in size andno pericardial effusion is noted. No obvious lymphadenopathy seen on thisunenhanced scan. No pneumothorax is noted. Since the prior exam there is beenincrease in bilateral pleural effusi ons with associated consolidations. Acalcified granuloma is again seen in th e right lower lobe. The imaged upperabdomen does not demonstrate any gross acute maggy nges. Osteopenia is again noted.Degenerative changes again seen in the imaged spine. Old healed right posteriorlower rib fractures are again seen.IMPRESSION: .. Limited s tudy demonstrating increase in bilateral pleuraleffusions with associated consoli dations with persistent cardiomediastinal shifttowards the right. Stable findings as noted above.. One or more of the followingdose reduction techniques were used: automated exposure control, adjustment ofthe mA and/or kV according to patient size, use of iterative reconstructivetechnique. THIS DOCUMENT H BEEN ELECTRONICALLY SIGNED Kamran Gillette MD 12/18/2018 04:49 GINA Verde Please call [facility] [phone] with questions. This report was electronically signed by: Tala MENDEZ 12/18/2018 04: 50 AMCta Up Ext Lt W ContResult Date: 12/18/2018History: Arm claudication. FINDI NGS: CTA of the left upper extremity wasperformed helically from level of the shoulder through the fingers after theintravenous administration of 119 cc of Isovue. Sagittal, coronal, and 3-Dreconstructed images obtained on an RealtimeBoard workstation are submitted. Noprior studies are available for comparison. Th e left subclavian artery is widelypatent. It is continuous with a widely patent left axillary artery. The axillaryartery is continuous with a widely patent left bra chial artery. The brachialartery bifurcates into a radial and ulnar artery just belo w the elbow. From thispoint distally streak artifact from patient positioning limits evaluation.However, the ulnar artery appears widely patent to the wrist. The radial a rteryis less well opacified but does appear patent to the wrist as well. Anintraosse ous artery also appears patent although it is poorly visualized aswell. The digital ar teries are not visualized on this study. There arebilateralpleural effusions note d both of which are moderate to large. Theeffusion on the left one is larger th an the right. Bibasilar atelectatic changethroughout much of the lower lobes is seen. There is a significant shift ofmediastinal structures to the right. T he liver is decreased in attenuationcompatible with fatty infiltr ation. The spleen is unremarkable. The adrenalglands are normal in appearance. The pancreas is grossly normal as is thegallbladder. A gastrostomy tube is no mikel in situ. The kidneys are unremarkable.There is a midline abdomina l wall hernia containing large and small bowel aswell as mesentery without eviden ce of obstruction. There is some presacralthickening and possibly some fr ee fluid noted. The patient is status post ORIFof the left hip with metallic hardwa re in situ.IMPRESSION: Patent left upper extremity arterial vessels although eval uationdistally is limited. Bilateral pleural effusions and bibasilar atelectasis.Shif t of mediastinal structures to the right.Ct Abd Pelv Wo ContResult Date: 12/21/2018His tory: ? Maturity of g-tube tract Technique: CT of the abdomen and pelvis wasperforme d from the dome of the diaphragm to the pubic symphysis without oral orintravenous con trast with dose lowering techniques. Sagittal and coronalreconstructions were performe d. Evaluation of solid abdominal viscera iscompromised by by the lack of intraven ous contrast. Evaluation of the bowelloops is compromised lack of oral contrast. All C T scans at this facility areperformed using dose optimization technique as appropria te to a performed exam,to include automated exposure control, adjustment of the mA a nd/or kV accordingto patient size (including appropriate matching first site-specific examinations), or use of iterative reconstruction technique. Comparison: CT scanof the chest performed 12/19/18 Findings: There is a small right pleural effusionw ith adjacent atelectasis. There is minimal left pleural fluid with adjacentatelecta sis. There is a pigtail catheter again identified on the left. The exactlocatio n of this catheter is difficult to ascertain benefits above the diaphragmto below the diaphragm. On today's study the tip appears to be located below thediaphragm. There is a small right pleural effusion with adjacent atelectasis.There is a G-tube i dentified in the stomach. The liver, gallbladder, spleen,pancreas, kidneys an d adrenal glands are unremarkable. No abdominal, pelvic oringuinal lymphadenop athy is identified. No free intraperitoneal fluid is noted.There is a ventral wall h ernia containing loops of what appear to be small bowelhowever are difficult to foll ow. There is mild perirectal stranding andpresacral edema correlate clinically. No dilated loops of bowel are identified.There is mild diverticulosis of the colon. The prostate, bladder and seminalvesicles appear unremarkable. The re are streak artifact obscuring portions ofthe pelvis due to a left hip ORIF. The re is subcutaneous gas identified alongthe right lower anterior pelvic wall.IMPRESS ION: There is a G-tube identified in the stomach. There is a tailcatheter identif ied on the left. The tip appears to be located below thediaphragm although is d ifficult to assess on CT. There is a small residualamount of pleural fluid as well as atelectasis along the left diaphragm. Thereis perirectal stranding and presacr al edema.Ct Thoracentesis Insrt Chest TubeResult Date: 12/19/2018History: Pleura l effusion. PROCEDURE: After being informed of the risks,benefits, and potential alt ernatives procedure informed consent was obtained.The patient was placed on the t able in the bolvj-zjxw-dvid decubitus position.CT scanning was performed locat ion was chosen over the left flank. However, dueto the significant amount of patient motion and breathing motion was difficultto accurately assess a location for percuta neous paracentesis. Therefore, thiswas performed manually. After the chosen reg ion was prepped and draped in thenormal sterile fashion using maximum sterile ba rrier technique a lidocaineneedle was placed in the skin. This appeared to be in good position. Lidocainewas then used to anesthetize the skin and subcutaneous ti ssues in this location.Attempts were made to pass an 8 Congolese pigtail catheter throug h this location.However, patient continuous motion was significant as well as excess ivebreathing during the procedure. The catheter was placed at the same interspa ceas well as marked on the prior CT sequence however, due to the excessive patientmot ion the catheter was far more inferior within the chest that on the priorsequences. Th e catheter appeared to enter the hemiabdomen on the left from theleft chest. The cath eter was then pulled back to position where clear yellowfluid was aspirated. It was then sewn in position However, It appeared tomigrate forward and on the CT scanning appeared to again transgress thediaphragm. It was therefore pulled back to a point where only a clear fluid wasaspirated and respiratory variation was noted within t he tube. It was then sewnin position using 2-0 silk sutures. FINDINGS: Initial CT s debora revealed amoderate left pleural effusion. Attempts to nancy an adequate l ocation forpercutaneous thoracentesis were quite limited due to excessive patient m otionand breathing throughout the procedure. A location that appear to be a safelocat ion was marked. However, when the catheter was placed in this sameinterspace as wel l as marked the catheter appeared to be far more inferiorwithin the hemithorax than that seen previously. It appeared to enter the lefthemithorax inferiorly and transg ress the diaphragm with no evidence pathologicsequela. Therefore, it was pul led back into the pleural space for adequatedrainage. 130 cc of lightly bloo d-tinged fluid was aspirated. The catheter wasattached to a Pleur-evac and wall suc tion.IMPRESSION: Left-sided thoracentesis described above.Xr Chest PortResult Date : 01/10/2019XR CHEST PORT Clinical data: Sepsis Priors: 12/29/2018. Findings: Exam ination iscompromised due to limited inspiration and patient rotation. Heart size isunchanged. Haziness seen at the right lung base can be due to small effu sionwith atelectasis/infiltrate. No confluent left lung process is seen. No evidence of CHF.IMPRESSION: Limited study. Suspect right lung base process which ma y be due tosmall effusion with atelectasis/infiltrate.Xr Chest PortResu lt Date: 12/29/2018History: leukocytosis Technique: Portable chest x-ray 9 11:01 AMComparison: 12/25/2018. FINDINGS: There is a right lower lobe infiltrate o ratelectasis which is increased since prior exam. There is poor inspiration.There is a small left pleural effusion. The exam is rotated. Evaluation of thecardiac silhou ette is limited by projection. The visualized osseous structuresappear unremarkable.IM PRESSION: There is a right lower lobe infiltrate or atelectasis which isincrea sed since prior exam.Xr Chest PortResult Date: 12/18/2018Portable chest x-ray. PRIO R EXAM: 12/12/2018 and 11/25/2018 HISTORY: Pneumonia andpleural effusions FINDINGS: The heart is normal in size. The mediastinum andpulmonary vessels are unremarkable. T here is haziness within the lung basesbilaterally... The bony structures are intact.IMPRESSION: Haziness within the lung bases bilaterally that could repres entsmall pleural effusions and/or subsegmental atelectasis. Similar findin gs wereseen on prior exams.Duplex Upper Ext Venous LeftResult Date: 12/26/2018DUPLEX UPPER EXT VENOUS LEFT Clinical Data: Arm swelling, DVT suspectedFindings: The vis ualized segments of the left upper extremity venous circulationfrom the level of the subclavian vein to the brachial vein is compressible andshows normal phasic flow without an intraluminal thrombus. In addition, theinternal jugular vein and t he basilic vein is also patent. Extremely limitedexam because the patient was unab le to cooperate and this was done in a portablefashion.IMPRESSION: No evidence of deep vein thrombosis within the visualized left upperextremity venous circulation. Limited study.Duplex Lower Ext Venous BilatResult Date: 01/11/2019HISTORY: swel ling to lower extremities TECHNIQUE: Bilateral lower extremityvenous Doppler ultrasound Using real time and color-flow Doppler as well asspectral analysis and ultrasound examination was performed of the lowerextremities bilaterally. FINDINGS: On the right side the common femoral vein,superficial femoral vein along its entire course, as well as popliteal vein allappeared widely patent, were easily c ompressible, showed normal spontaneousflow. The calf veins were not visualized due t o body habitus. On the left sidethe common femoral vein, superficial femoral vein a long its entire course, aswell as popliteal vein all appeared widely patent, were ea sily compressible, andshowed normal spontaneous flow. The calf veins were no t visualized due to bodyhabitus.IMPRESSION: Normal bilateral lower extremity venous Doppler ultrasound with noevidence of deep vein thrombosis.Medications reviewedCurr ent Facility-Administered MedicationsMedication Dose Route Frequen cy acetylcysteine (MUCOMYST) 100 mg/mL (10 %) nebulizer solution 400 mg 4 mLNebuli zation BID RT multivit-folic acid- herbal 275 (WELLESSE PLUS) oral liquid 30 mL 30 mL Per GTube DAILY budesonide (PULMICORT) 500 mcg/2 ml nebulizer suspension 500 mcg N ebulizationBID RT sodium chloride (NS) flush 5-10 mL 5-10 mL IntraVENous PRN choles tyramine-aspartame (QUESTRAN LIGHT) packet 4 g 4 g Oral TID WITH MEALS cinacalcet ( SENSIPAR) tablet 60 mg 60 mg Oral DAILY lamoTRIgine (LaMICtal) tablet 50 mg 50 mg Per G Tube BID pantoprazole (PROTONIX) granules for oral suspension 40 mg 40 m g Per G TubeACB valproic acid (as sodium salt) (DEPAKENE) 250 mg/5 mL (5 mL) oral solution 750mg 750 mg Oral BID ALPRAZolam (XANAX) tablet 0.5 mg 0.5 mg Per G Tube QHS acetaminophen (TYLENOL) solution 650 mg 650 mg Oral Q4H PRN heparin (porcine) injection 5,000 Units 5,000 Units SubCUTAneous Q12H influenza vaccine 201 9-20 (65 yrs+)(PF) (FLUZONE HIGH-DOSE) injection 0.5 mL0.5 mL IntraMUSCular YUAN OR TO DISCHARGE albuterol-ipratropium (DUO-NEB) 2.5 MG-0.5 MG/3 ML 3 mL Nebul ization Q6H RT piperacillin-tazobactam (ZOSYN) 3.375 g in 0.9% sodium chloride (MBP/ADV) 100mL MBP 3.375 g IntraVENous [id number]/Plan:Hospital Problems Da te Reviewed: 01/14/2019 Codes Class Noted POA Acute respiratory failure with hypoxia (HCC) ICD-10-CM: J96.01ICD-9-CM: 518.81 01/10/2019 Unknown Pneumonia invo lving right lung ICD-10-CM: J18.9ICD-9-CM: 486 01/10/2019 Unknown Hyponatremia ICD- 10-CM: E87.1ICD-9-CM: 276.1 01/10/2019 YesAssessment: Acute Respiratory Failur e with Hypercapnia and HypoxiaPneumonia likely Aspiration RLLAtelectasisDysphagi a s/p surgical placed pegMentally challengedSeizureHyperparathyroidLeft an kle and pedal edema- ResolvedPlan:Continuous O2 NC/PRN Bipap per pulmonaryIV zosyn pe r IDNebulizersFollow culturesRestraints with mittsContinue with bolus TF for Bao Frankel MDKarmanos Cancer Center 2018Time: 11:49 PM Name Value Range Interpretation Code Description Data Harriett rce(s) Supporting Document(s ) ID Date Data Source [id number] 01/17/2019 09:46:15 AM EDT [facility] ID Progress Note01/17/2019Subjective:Siri ent with mental retardation,recurrent aspiration pneumonia.on BIPAPNo NEW even t overnightNon verbal,unable to provide history.AfebrileCultures negativeObjecti ve:Vitals:Patient Vitals for the past 24 hrs: BP Temp Pulse Resp [id number]/17/19 0837 - - - - 95 %01/17/19 0736 112/56 98.6 F (37 C) 86 20 98 %01/17/19 0414 116/64 97.6 F ( 36.4 C) 90 20 98 %01/17/19 0117 - - - - 97 %01/16/192009 107/48 97.3 F (36.3 C) 88 20 95 %01/16/19 1553 116/59 96.9 F (36.1 C) 77 - 94 %01/16/19 1432 - - - - 99 %Tm ax: Temp (24hrs), Av.6 F (36.4 C), Min:96.9 F (36.1 C), Max:98.6 F(37 C )Physical Exam:General: Lethargic non verbalNeck: Supple, symmetrical, trachea midline, no adenopathLungs: Decrease breath sounds at bases.Heart: Regular r ate and rhythm, S1, S2 normalAbdomen: Soft, non-tender. Bowel sounds normal. No mass es, No organomegaly.+feeding tubeBack: No CVA tenderness.Extremities: Chronic lymp hedema.Pulses: 2+ and symmetric all extremities.Skin: Skin color, texture, t urgor normal. No rashes or lesionsCurrent Facility-Administered MedicationsMedicat ion Dose Route Frequency acetylcysteine (MUCOMYST) 100 mg/mL (10 %) nebulizer so lution 400 mg 4 mLNebulization BID RT multivit-folic acid-herbal 275 (WELLESSE PLUS) oral liquid 30 mL 30 mL Per GTube DAILY budesonide (PULMICORT) 500 mcg/2 ml nebulizer suspension 500 mcg NebulizationBID RT sodium chloride (NS) flush 5-10 mL 5-10 mL IntraVENous PRN cholestyramine-aspartame (QUESTRAN LIGHT ) packet 4 g 4 g Oral TID WITH MEALS cinacalcet (SENSIPAR) tablet 60 mg 60 m g Oral DAILY lamoTRIgine (LaMICtal) tablet 50 mg 50 mg Per G Tube BID pantoprazol e (PROTONIX) granules for oral suspension 40 mg 40 mg Per G TubeACB valproic acid ( as sodium salt) (DEPAKENE) 250 mg/5 mL (5 mL) oral solution 750mg 750 mg Oral BID AL PRAZolam (XANAX) tablet 0.5 mg 0.5 mg Per G Tube QHS acetaminophen (TYLENOL) soluti on 650 mg 650 mg Oral Q4H PRN heparin (porcine) injection 5,000 Units 5,000 U nits SubCUTAneous Q12H influenza vaccine (65 yrs+)(PF) (FLUZONE HIGH-DOSE ) injection 0.5 mL0.5 mL IntraMUSCular PRIOR TO DISCHARGE albuterol-ipratropium (DUO -NEB) 2.5 MG-0.5 MG/3 ML 3 mL Nebulization Q6H RT piperacillin-tazobactam (ZOSYN) 3.375 g in 0.9% sodium chloride (MBP/ADV) 100mL MBP 3.375 g IntraVENous O1UOmpp:R ecent Labs 01/16/1905WBC 5.9 6.7 5.7HGB 11.2* 11. 0* 11.6*PLT 299 266 282BUN 8 10 9CREA 0.37* 0.52* 0.37*Cultures:Lab ResultsComponent Value Date/Time Culture result: NO GROWTH 1 DAY 01/10/2019 08:58 AM Culture result: NO GROWTH 5 DAYS 01/10/2019 07:55 AM Culture result: NO GROWTH 5 DAYS 01/10/2019 07:4 0 AMRadiology:No results found.Assessment: Aspiration pneumonia. Acute hypoxic res piratory failure. Dysphagia Pleural effusion. . COPD Plan:1. Continue IV z osyn.Monica Gomez MD[facility] 5, [id number] AM Name Value Range Interpretation Code Description Data Harriett rce(s) Supporting Document(s ) ID Date Data Source [id number] 01/17/2019 08:59:23 AM EDT [facility] Portable chest x-ray.PRIOR EXAM: X-ray HISTORY: Hypoxia FINDINGS: The heart is normal in size. The mediastinum and p ulmonary vessels areunremarkable. There is no acute infiltrate. The bony structures ar e intact.IMPRESSION:No acute pulmonary disease. There is very limited visualiza tion of the rightlung due to patient positioning. Signing date/time: 9 8:59 AMSigned by: KARO RAMIREZ Name Value Range Interpretation Code Description Data Harriett rce(s) Supporting Document(s ) ID Date Data Source [id number] 01/17/2019 07:14:43 AM EDT [facility] Bedside and Verbal shift change report g iven to Teresa Ohara RN (oncomingnurse) by Ronald Montoya RN (offgoing nurse) . Report included the following information SBAR, Kardex, MARand Recent Results. Name Value Range Interpretation Code Description Data [facility] rce(s) Supporting Document(s ) ID Date Data Source [id number] 01/17/2019 07:04:33 AM EDT [facility] Name Value Range Interpretation Description Data Sup porting Code Source(s) Document(s ) Sodium 131 136-145 Below low normal [facility] [Moles/volume] mmol/L [facility] in Serum or Hospital Plasma Potassium 4.3 3.5-5.1 [facility] [Moles/volume] mmol/L [facility] in Serum or Hospital Plasma Chloride 93 98-107 Below low normal [facility] [Moles/volume] mmol/L [facility] in Serum or Hospital Plasma Carbon 37 21-32 Above high normal [facility] dioxide, total mmol/L [facility] [Moles/volume] Hospital in Serum or Plasma Anion gap in 6 mmol/L 10-20 Below low normal [facility] - Go od Serum or [facility] Plasma Hospital Glucose 78 mg/dL 74-106 [facility] [Mass/volume] [facility] in Serum or Hospital Plasma Urea nitrogen 8 mg/dL 7-18 [facility] [Mass/volume] [facility] in Serum or Hospital Plasma Creatinine 0.37 0.70-1.3 Below low normal [facility] [Mass/volume] mg/dL 0 [facility] in Serum or Hospital Plasma Glomerular >60 [facility] - [facility] filtration [facility] rate/1.73 sq M Hospital predicted among blacks [Volume Rate/Area] in Serum or Plasma by Creatinine-bas ed formula (MDRD) Glomerular >60 [facility] - Good filtration [facility] rate/1.73 sq M Hospital predicted among non-blacks [Volume Rate/Area] in Serum or Plasma by Creatinine-bas ed formula (MDRD) Calcium 9.1 8.5-10.1 [facility] [Mass/volume] mg/dL [facility] in Serum or Hospital Plasma Phosphate 2.5 2.5-4.9 [facility] [Mass/volume] mg/dL [facility] in Serum or Hospital Plasma Albumin 1.8 g/dL 3.5-4.7 Below low normal [facility] [Mass/volume] [facility] in Serum or Hospital Plasma by Bromocresol purple (BCP) dye binding method ID Date Data Source [id number] 01/17/2019 07:04:33 AM EDT [facility] Name Value Range Interpretation Description Data Sup porting Code Source(s) Document(s ) Magnesium 1.9 mg/dL 1.6-2.6 [facility] [Mass/volume] [facility] in Serum or Hospital Plasma ID Date Data Source [id number] 01/17/2019 06:51:10 AM EDT [facility] Name Value Range Interpretation Description Data Sup porting Code Source(s) Document(s ) Leukocytes 5.9 K/uL 4.8-10.6 [facility] - [#/volume] in Good Blood by [facility] Automated count [facility] Erythrocytes 3.37 4.70-6.0 Below low normal [facility] - [#/volume] in M/uL 0 Good Blood by [facility] Automated count [facility] Hemoglobin 11.2 14.0-18. Below low normal [facility] - [Mass/volume] in g/dL 0 Good Blood [facility] Hematocrit 34.1 % 42.0-52. Below low normal [facility] - [Volume 0 Good Fraction] of [facility] Blood by Hospital Automated count Erythrocyte mean 101.2 FL 81.0-94. Above high normal [facility] - corpuscular 0 Good volume [Entitic [facility]ist volume] by Hospital Automated count Erythrocyte mean 33.2 PG 27.0-35. [facility] - corpuscular 0 Good hemoglobin [facility] [Entitic mass] [facility] by Automated count Erythrocyte mean 32.8 30.7-37. [facility] - corpuscular g/dL 3 Good hemoglobin [facility] [Mass/volume] by Automated count Erythrocyte 16.3 % 11.5-14. Above high normal [facility] - distribution 0 Good width [Ratio] by [facility] Automated count Hospital Platelets 299 K/uL 130-400 [facility] - [#/volume] in [facility] Blood by [facility] Automated count [facility] Platelet mean 8.6 FL 9.2-11.8 Below low normal [facility] - volume [Entitic Good volume] in [facility] by Automated Hospital count Segmented 57 % 48.0-72. [facility] - neutrophils/100 0 Good leukocytes in [facility] Lymphocytes/100 24 % 18.0-40. [facility] - leukocytes in 0 [facility] Monocytes/100 15 % 2.0-12.0 Above high normal [facility] - leukocytes in [facility] Eosinophils/100 4 % 0.0-7.0 [facility] - leukocytes in [facility] Basophils/100 0 % 0.0-3.0 [facility] - leukocytes in [facility] Segmented 3.2 K/UL 1.5-6.6 [facility] - neutrophils Good [#/volume] in [facility] Lymphocytes 1.4 K/UL 1.5-3.5 Below low normal [facility] - [#/volume] in [facility] Monocytes 0.9 K/UL 0.0-1.0 [facility] - [#/volume] in [facility] Eosinophils 0.2 K/UL 0.0-0.7 [facility] - [#/volume] in [facility] Basophils 0.0 K/UL 0.0-0.1 [facility] - [#/volume] in [facility] Differential [facility] - cell count [facility] method [facility] Immature 3 % 0.0-2.0 Above high normal [facility] - granulocytes/100 Good leukocytes in [facility] Automated count ID Date Data Source [id number] 01/16/2019 11:26:22 PM EDT [facility] Problem: Falls - Risk ofGoal: *Absence o f FallsDescriptionDocument Samra Fall Risk and appropriate interventions in the jhon wsheet.Outcome: Progressing Towards GoalNote:Fall Risk Interventions:Mobilit y Interventions: Bed/chair exit alarmMentation Interventions: Bed/chair exit alarm, More frequent rounding, ToiletingroundsMedication Interventions: Bed/chair exit alarmElimination Interventions: Bed/chair exit alarm, Yfn leting schedule/hourlyroundsHistory of Falls Interventions: Bed/chair exit alarmProbl em: Patient Education: Go to Patient Education ActivityGoal: Patient/Family E ducationOutcome: Progressing Towards GoalProblem: Pressure Injury - Risk ofGo al: *Prevention of pressure injuryDescriptionDocument Butch Scale a nd appropriate interventions in the flowsheet.Outcome: Progressing Towards G oalNote:Pressure Injury Interventions:Sensory Interventions: Float heels, Pressure red istribution bed/mattress (bedtype), Turn and reposition approx. every two hours (pill ows and wedges ifneeded), Suspension bootsMoisture Interventions: Internal/Ex ternal urinary devices, Check forincontinence Q2 hours and as needed, Absorbent underp adsActivity Interventions: Pressure redistribution bed/mattress(bed type)Mob ility Interventions: Float heels, Suspension boots, Turn and repositionapprox. every two hours(pillow and wedges), Pressure redistribution bed/mattress(bed type)Nut rition Interventions: Document food/fluid/supplement intakeFriction and Shear Interventions: Apply protective barrier, creams andemollients, HOB 30 de grees or less, Foam dressings/transparent film/skinsealantsProblem: Patient Educat ion: Go to Patient Education ActivityGoal: Patient/Family EducationOutcome: Progres sing Towards Goal Name Value Range Interpretation Code Description Data [facility] Supporting Document(s ) ID Date Data Source [id number] 01/16/2019 07:12:10 PM EDT [facility] Bedside and Verbal shift change report g ankit to Ronald Montoya RN(oncoming nurse) by Yuki Ohara RN (offgo ing nurse). Report includedthe following information SBAR, Kardex, Intake/Output, MAR and Recent Results. Name Value Range Interpretation Code Description Data [facility](s) Supporting Document(s ) ID Date Data Source [id number] 01/16/2019 02:35:09 PM EDT [facility] Progress NoteMID-COUNTY PULMONARY ASSOC. ,P.C.Krystian Monae MD., F.CGualbertoC.P.Stella Hamilton MD., F.C.CGualbertoP. [address] [place] [address] [place], [place] [id number] [phone]: Evelio Carlin Sex: male DOA: 01/10/2019Da te of : 1950 Age: 68 y.o. LOS: LOS: 6 daysSubjective:Mr. Gayla beltran is a 68 y.o. year old male who is being seen for acuteHypercapnic and Hypoxic r espiratory failure , he is Back on bipap At thisPoint And Is very lethargic .CAT SCAN CHEST WITH I V CONTRAST - NO LUNG NODULE . ELEVATED RT . HEMIDIAPHRAGMSMA LL RT . PLEURAL EFFUSION.Objective:Vital Signs:Patient Vitals for the past 24 hrs : BP Temp Pulse Resp [id number]/16/19 0724 114/66 96.8 F (36 C) 80 20 97 %01/16/19 0455 123/66 97 F (36.1 C) 72 22 96 %01/16/19 0245 - - - - 99 %01/15/19 2341 - - 95 - -01/15/19 2107 - - - - 98 %01/15/19 2006 94/58 97.8 F (36.6 C) (!) 111 22 96 %1 1710 - - - - 93 %01/15/19 1524 103/62 97.4 F (36.3 C) (!) 102 22 90 %Pulse O X:SpO2 Readings from Last 6 Encounters:01/16/19 97%12/30/18 96%11/27 91%09/26/15 96%@LASTSAO2(6)@Physical Exam:unresponsive Today ON BIPAP. General: Alert, cooperative, MODERATE RESPIRATORY distress,appears stated ag e. Head: Normocephalic, without obvious abnormality, atraumatic. Eyes: Conjunctivae/corneas clear. PERRL, EOMs intact. Nose: N dada normal. No drainage or sinus tenderness Throat: Lips, mucosa, and tongu e normal Neck: Supple, symmetrical, trachea midline, no adenopa thy,thyroid: no enlargement/tenderness/nodules, no carot id bruit and no JVD. Lungs: DECREASED AIR EXCHANGE , WHEEZING AND RHONCHI +1 , RALES+ R L L > L L L to auscultation bilaterally. Chest Wall: No tenderness or deformity. Heart: Regular rate and rhythm, S1, S2 normal , no murmur, click,rub or NO gallop. Abdomen: Soft, non-tender. Bowel soun ds normal. No masses, No organomegaly. Extremities: Extremities normal, atrau matic, no cyanosis or edema. Pulses: 4+ bilaterally. Skin: Ski n color, texture, turgor normal. No rashes or lesions. Neurologic: CNII-XII intact. No focal motor or sensory deficit.Intake and Output:Last three shifts: 01/14 1901 - 01/16 0700In: 3230 [I.V.:1300]Out: 2000 [Urine:2000]Lab Results:Recent Results ( from the past 24 hour(s))RENAL FUNCTION PANEL Collection Time: 01/16/19 5:45 AMResult Value Ref Range Sodium 133 (L) 136 - 145 mmol/L Potassium 4.2 3.5 - 5.1 mmol/L [place] 95 (L) 98 - 107 mmol/L CO2 37 (H) 21 - 32 mmol/L Anion gap 5 (L) 10 - 20 mmol/L Glucose 119 (H) 74 - 106 mg/dL BUN 10 7 - 18 mg/dL Creatinine 0.52 (L) 0.70 - 1.30 mg /dL GFR est AA >60 >60 ml/min/1.73m2 GFR est non-AA >60 >60 ml/min/1.73m2 Calcium 9.5 8.5 - 10.1 mg/dL Phosphorus 2.5 2.5 - 4.9 mg/dL Albumin 1.8 (L) 3.5 - 4.7 g/dLMAGN ESIUM Collection Time: 01/16/19 5:45 AMResult Value Ref Range Magnesium 2.1 1 .6 - 2.6 mg/dLCBC WITH AUTOMATED DIFF Collection Time: 01/16/19 5:45 AMResult Value Ref Range WBC 6.7 4.8 - 10.6 K/uL RBC 3.35 (L) 4.70 - 6.00 M/uL HGB 11.0 (L) 1 4.0 - 18.0 g/dL HCT 34.1 (L) 42.0 - 52.0 % MCV 101.8 (H) 81.0 - 94.0 FL MCH 32.8 27 .0 - 35.0 PG MCHC 32.3 30.7 - 37.3 g/dL RDW 16.5 (H) 11.5 - 14.0 % PLATELET 266 130 - 400 K/uL MPV 8.7 (L) 9.2 - 11.8 FL NEUTROPHILS 60 48.0 - 72.0 % LYMPHOCYTES 24 18.0 - 40.0 % MONOCYTES 13 (H) 2.0 - 12.0 % EOSINOPHILS 3 0.0 - 7.0 % BASOPHILS 0 0.0 - 3.0 % ABS. NEUTROPHILS 3.8 1.5 - 6.6 K/UL ABS. LYMPHOCYTES 1.6 1.5 - 3.5 K/UL ABS. MONOCYTES 0.9 0.0 - 1.0 K/UL ABS. EOSINOPHILS 0.2 0.0 - 0.7 K/UL ABS. BASO PHILS 0.0 0.0 - 0.1 K/UL DF AUTOMATED IMMATURE GRANULOCYTES 2 0.0 - 2.0 %ABG:N o results for input(s): PH, PCO2, PO2, HCO3, FIO2 in the last 72 hours.Recent Glucose Results:Lab ResultsComponent Value Date/Time GLU 119 (H) 01/16/2019 05:45 AM@LABAPCYT OINTERPRETATION@CULTURESAll Micro Results Procedure Component Value Units Date/Patria e CULTURE, BLOOD [[id number]] Collected: 01/10/19 0755 Order Status: Completed S pecimen: Blood Updated: 01/15/19837 Special Requests: NO SPECIAL REQUESTS C ulture result: NO GROWTH 5 DAYS CULTURE, BLOOD [[id number]] Collected: 01/10/19 0 740 Order Status: Completed Specimen: Blood Updated: 01/15/19837 Special Request s: NO SPECIAL REQUESTS Culture result: NO GROWTH 5 DAYS CULTURE, URINE [[id number]] Collected: 01/10/1958 Order Status: Completed Specimen: Urine from [facility] Updated: Special Requests: NO SPECIAL REQUESTS Culture result: NO GROWTH 1 DAY CULTURE, BLOOD [[id number]] Collected: 01/10/19 0800 Order Status: Canceled Specimen: BloodImages:@IMAGESENCORD@Xr Chest Sngl VResult Date: 12/25/2018Portable chest x-ray. PRIOR EXAM: X-ray 12/18/2018 HISTORY: Pneu monia FINDINGS:The heart is normal in size. The mediastinum and pulmonary vessels ar eunremarkable. There is a small right pleural effusion.. A tube projected overthe left upper quadrant of the abdomen..IMPRESSION: Small right pleural effusion.Ct Chest Wo ContResult Date: 01/10/2019CT CHEST WO CONT Clinical data: evaluation of pneumonia r t lung. Priors:12/18/2018 Technique: CT scan of the chest was performed from the thoraci c inletto below the diaphragm without administration of intravenous contrast. Theacquisition data was reviewed in the axial, sagittal and coronal plane.Utiliz ing silver holloware assembler algorithm the examination was performed to optimizeimaging quality by utilizing the lowest possible radiation dose. Findings: Thereis no evidence of p athological lymphadenopathy within the mediastinum, bilateralhilar and bilatera l axillary location. There is a 1.8 cm nodule along the rightwall of the trache a at the level of the thoracic inlet (best seen on image 13ofseries 2) not seen on the prior study. This may be due to a mucous plug. Noadditional endotracheal or endo bronchial lesion is noted.Normal heart size.Coronary artery calcifications note d. Atherosclerotic thoracic aorta withoutaneurysmal dilatation. Evaluation lung windows demonstrates patchy right lowerlobe lung infiltrate. There is asso ciated small right pleural effusion similarto prior. There is also small left pleural effusion with underlying passiveatelectasis slightly decreased from the prior study. No new lung pathology isobserved. Included upper abdominal organs: No significant p athology is observedwithin the visualized upper abdominal organs.IMPRESSION: Small bilateral pleural effusion. Right effusion is similar toprior study. Left effusion slightly decreased in size. Patchy right lungopacities which may be due to pneumo freddy similar to previous examinations. 1.8cm nodule along the right lateral wall of t he trachea at the level of thethoracic inlet not observed on the prior study and can be due to a mucous plug.Ct Chest Wo ContResult Date: 12/18/2018Referring Physi chaya: KRYSTIAN MONAE Patient Name: EVELIO CARLIN THIS IS AFINAL REPORT FROM [facility] DATE OF SERVICE: 2018-12-18 01:22:40 IMAGES:555 EXAM: CT CHEST WO CO NTRAST HISTORY: .. Right lower lobe atelectasis..TECHNIQUE: Helical axial im aging from the thoracic inlet through the adrenalglands without contrast. Sagittal and coronal reconstructions were obtained.COMPARISON: CT chest without co ntrast of 12/13/2018. FINDINGS: .. Evaluationremains limited due to lack of IV contrast and patient positioning. The imagedthyroid gland remains atrophic. Th e aorta remains normal in caliber.Atherosclerotic calcifications a re again seen in the aorta. There is againcardiomediastinal shift towards the right. The heart remains normal in size andno pericardial effusion is noted. No obvious lymphadenopathy seen on thisunenhanced scan. No pneumothorax is noted. Since the prior exam there is beenincrease in bilateral pleural effusi ons with associated consolidations. Acalcified granuloma is again seen in th e right lower lobe. The imaged upperabdomen does not demonstrate any gross acute maggy nges. Osteopenia is again noted.Degenerative changes again seen in the imaged spine. Old healed right posteriorlower rib fractures are again seen.IMPRESSION: .. Limited s tudy demonstrating increase in bilateral pleuraleffusions with associated consoli dations with persistent cardiomediastinal shifttowards the right. Stable findings as noted above.. One or more of the followingdose reduction techniques were used: automated exposure control, adjustment ofthe mA and/or kV according to patient size, use of iterative reconstructivetechnique. THIS DOCUMENT H BEEN ELECTRONICALLY SIGNED Kamran Gillette MD 12/18/2018 04:49 GINA Verde Please call [facility] [employer] Consultant [phone] with questions. This report was electronically signed by: Tala MENDEZ 12/18/2018 04: 50 AMCta Up Ext Lt W ContResult Date: 12/18/2018History: Arm claudication. FINDI NGS: CTA of the left upper extremity wasperformed helically from level of the shoulder through the fingers after theintravenous administration of 119 cc of Isovue. Sagittal, coronal, and 3-Dreconstructed images obtained on an RealtimeBoard workstation are submitted. Noprior studies are available for comparison. Th e left subclavian artery is widelypatent. It is continuous with a widely patent left axillary artery. The axillaryartery is continuous with a widely patent left bra chial artery. The brachialartery bifurcates into a radial and ulnar artery just belo w the elbow. From thispoint distally streak artifact from patient positioning limits evaluation.However, the ulnar artery appears widely patent to the wrist. The radial a rteryis less well opacified but does appear patent to the wrist as well. Anintraosse ous artery also appears patent although it is poorly visualized aswell. The digital ar teries are not visualized on this study. There arebilateralpleural effusions note d both of which are moderate to large. Theeffusion on the left one is larger th an the right. Bibasilar atelectatic changethroughout much of the lower lobes is seen. There is a significant shift ofmediastinal structures to the right. T he liver is decreased in attenuationcompatible with fatty infiltr ation. The spleen is unremarkable. The adrenalglands are normal in appearance. The pancreas is grossly normal as is thegallbladder. A gastrostomy tube is no mikel in situ. The kidneys are unremarkable.There is a midline abdomina l wall hernia containing large and small bowel aswell as mesentery without eviden ce of obstruction. There is some presacralthickening and possibly some fr ee fluid noted. The patient is status post ORIFof the left hip with metallic hardwa re in situ.IMPRESSION: Patent left upper extremity arterial vessels although eval uationdistally is limited. Bilateral pleural effusions and bibasilar atelectasis.Shif t of mediastinal structures to the right.Ct Abd Pelv Wo ContResult Date: 12/21/2018His tory: ? Maturity of g-tube tract Technique: CT of the abdomen and pelvis wasperforme d from the dome of the diaphragm to the pubic symphysis without oral orintravenous con trast with dose lowering techniques. Sagittal and coronalreconstructions were performe d. Evaluation of solid abdominal viscera iscompromised by by the lack of intraven ous contrast. Evaluation of the bowelloops is compromised lack of oral contrast. All C T scans at this facility areperformed using dose optimization technique as appropria te to a performed exam,to include automated exposure control, adjustment of the mA a nd/or kV accordingto patient size (including appropriate matching first site-specific examinations), or use of iterative reconstruction technique. Comparison: CT scanof the chest performed 12/19/18 Findings: There is a small right pleural effusionw ith adjacent atelectasis. There is minimal left pleural fluid with adjacentatelecta sis. There is a pigtail catheter again identified on the left. The exactlocatio n of this catheter is difficult to ascertain benefits above the diaphragmto below the diaphragm. On today's study the tip appears to be located below thediaphragm. There is a small right pleural effusion with adjacent atelectasis.There is a G-tube i dentified in the stomach. The liver, gallbladder, spleen,pancreas, kidneys an d adrenal glands are unremarkable. No abdominal, pelvic oringuinal lymphadenop athy is identified. No free intraperitoneal fluid is noted.There is a ventral wall h ernia containing loops of what appear to be small bowelhowever are difficult to foll ow. There is mild perirectal stranding andpresacral edema correlate clinically. No dilated loops of bowel are identified.There is mild diverticulosis of the colon. The prostate, bladder and seminalvesicles appear unremarkable. The re are streak artifact obscuring portions ofthe pelvis due to a left hip ORIF. The re is subcutaneous gas identified alongthe right lower anterior pelvic wall.IMPRESS ION: There is a G-tube identified in the stomach. There is a tailcatheter identif ied on the left. The tip appears to be located below thediaphragm although is d ifficult to assess on CT. There is a small residualamount of pleural fluid as well as atelectasis along the left diaphragm. Thereis perirectal stranding and presacr al edema.Ct Chest W Cont F/uResult Date: 01/15/2019CT CHEST W CONT F/U Clinical da ta: R U L NODULE NEAR TRACHEA / BLOOD VESSEL.Priors: 01/10/2019. Technique: CT scan of the chest was performed from thethoracic inlet to below the diaphragm following administration of intravenouscontrast. The acquisition da ta was reviewed in the axial, sagittal and coronalplane. 100 cc of low osmolar iodi nated contrast-isovue 300 was injectedintravenously for the examinatio n. Utilizing silver holloware assembler algorithm theexamination was performed to optimize imaging quality by utilizing the lowestpossible radiation dose. Findings: There is no evidence of pathologicallymphadenopathy within the m ediastinum, bilateral hilar and bilateral axillarylocation. There is no evidence of a central endobronchial or an endotrachealmass. Previously seen nodule along the right lateral wall of the trachea nolonger visualized. This may have repr esented a mucus lung which has dislodged.Coronary artery calcifications noted. Atherosclerotic thoracic aorta withoutaneurysmal dilatation. Elevated l eft hemidiaphragm. There is a small leftpleural effusion with underlying pas sive atelectatic changes similar to priorstudy. Improved previously seen ri ght lower lobe lung infiltrate. There isassociated small right pleural effusio n similar to prior examination. No newlung pathology is observed. Included upper ab dominal organs: No significantpathology is observed within the visualized upper abd ominal organs.IMPRESSION: 1. Previously seen tracheal nodule is no longer visualized. 2.Small left pleural effusion with underlying passive atelectatic changes s imilarto prior study. Stable elevation of the left hemidiaphragm. 3. Stable small right pleural effusion. Interval improvement in the right lower lobe lunginfiltrate. No new lung findings seen.Ct Thoracentesis Insrt Chest TubeResult Date: 12/19/2018His tory: Pleural effusion. PROCEDURE: After being informed of the risks,benefits, an d potential alternatives procedure informed consent was obtained.The patient was jocelyn riley on the table in the huupq-haws-mzwy decubitus position.CT scanning was perfo rmed location was chosen over the left flank. However, dueto the significant amount of patient motion and breathing motion was difficultto accurately assess a location for percutaneous paracentesis. Therefore, thiswas performed manually. After the ch osen region was prepped and draped in thenormal sterile fashion using maximum sterile barrier technique a lidocaineneedle was placed in the skin. This appeared to be in good position. Lidocainewas then used to anesthetize the skin and subcutaneous tissues in this location.Attempts were made to pass an 8 Congolese pigtail catheter thr ough this location.However, patient continuous motion was significant as wel l as excessivebreathing during the procedure. The catheter was placed at the same inte rspaceas well as marked on the prior CT sequence however, due to the excessive p atientmotion the catheter was far more inferior within the chest that on the pr iorsequences. The catheter appeared to enter the hemiabdomen on the left from theleft chest. The catheter was then pulled back to position where clear yellowfluid was asp irated. It was then sewn in position However, It appeared tomigrate forward and on the CT scanning appeared to again transgress thediaphragm. It was therefore pulled ba ck to a point where only a clear fluid wasaspirated and respiratory variation w as noted within the tube. It was then sewnin position using 2-0 silk sutures. FINDING S: Initial CT scanning revealed amoderate left pleural effusion. Attempts to nancy an adequate location forpercutaneous thoracentesis were quite limited due to excessive patient motionand breathing throughout the procedure. A location myrtle t appear to be a safelocation was marked. However, when the catheter was placed in this sameinterspace as well as marked the catheter appeared to be far more inferio rwithin the hemithorax than that seen previously. It appeared to enter the lef themithorax inferiorly and transgress the diaphragm with no evidence pathologicseq uela. Therefore, it was pulled back into the pleural space for adequatedrainage. 130 cc of lightly blood-tinged fluid was aspirated. The catheter wasattached to a Pleur-evac and wall suction.IMPRESSION: Left-sided thoracentesis described above .Xr Chest PortResult Date: 01/10/2019XR CHEST PORT Clinical data: Sepsis Priors: 2018. Findings: Examination iscompromised due to limited inspiration and patient rotat ion. Heart size isunchanged. Haziness seen at the right lung base can be due to sma ll effusionwith atelectasis/infiltrate. No confluent left lung process is seen. No evidence of CHF.IMPRESSION: Limited study. Suspect right lung base process which ma y be due tosmall effusion with atelectasis/infiltrate.Xr Chest PortResu lt Date: 12/29/2018History: leukocytosis Technique: Portable chest x-ray 9 11:01 AMComparison: 12/25/2018. FINDINGS: There is a right lower lobe infiltrate o ratelectasis which is increased since prior exam. There is poor inspiration.There is a small left pleural effusion. The exam is rotated. Evaluation of thecardiac silhou ette is limited by projection. The visualized osseous structuresappear unremarkable.IM PRESSION: There is a right lower lobe infiltrate or atelectasis which isincrea sed since prior exam.Xr Chest PortResult Date: 12/18/2018Portable chest x-ray. PRIO R EXAM: 12/12/2018 and 11/25/2018 HISTORY: Pneumonia andpleural effusions FINDINGS: The heart is normal in size. The mediastinum andpulmonary vessels are unremarkable. T here is haziness within the lung basesbilaterally... The bony structures are intact.IMPRESSION: Haziness within the lung bases bilaterally that could repres entsmall pleural effusions and/or subsegmental atelectasis. Similar findin gs wereseen on prior exams.Duplex Upper Ext Venous LeftResult Date: 12/26/2018DUPLEX UPPER EXT VENOUS LEFT Clinical Data: Arm swelling, DVT suspectedFindings: The vis ualized segments of the left upper extremity venous circulationfrom the level of the subclavian vein to the brachial vein is compressible andshows normal phasic flow without an intraluminal thrombus. In addition, theinternal jugular vein and t he basilic vein is also patent. Extremely limitedexam because the patient was unab le to cooperate and this was done in a portablefashion.IMPRESSION: No evidence of deep vein thrombosis within the visualized left upperextremity venous circulation. Limited study.Duplex Lower Ext Venous BilatResult Date: 01/11/2019HISTORY: swel ling to lower extremities TECHNIQUE: Bilateral lower extremityvenous Doppler ultrasound Using real time and color-flow Doppler as well asspectral analysis and ultrasound examination was performed of the lowerextremities bilaterally. FINDINGS: On the right side the common femoral vein,superficial femoral vein along its entire course, as well as popliteal vein allappeared widely patent, were easily c ompressible, showed normal spontaneousflow. The calf veins were not visualized due t o body habitus. On the left sidethe common femoral vein, superficial femoral vein a long its entire course, aswell as popliteal vein all appeared widely patent, were ea sily compressible, andshowed normal spontaneous flow. The calf veins were no t visualized due to bodyhabitus.IMPRESSION: Normal bilateral lower extremity venous Doppler ultrasound with noevidence of deep vein thrombosis.Medications:Current Faci lity-Administered MedicationsMedication Dose Route Frequency acetylcysteine (MUCOMYS T) 100 mg/mL (10 %) nebulizer solution 400 mg 4 mLNebulization BID RT multivit-folic acid-herbal 275 (WELLESSE PLUS) oral liquid 30 mL 30 mL Per GTube DAILY budesonide (PULMICORT) 500 mcg/2 ml nebulizer suspension 500 mcg NebulizationBID RT sodium chloride (NS) flush 5-10 mL 5-10 mL IntraVENous PRN cholestyramine-aspartam e (QUESTRAN LIGHT) packet 4 g 4 g Oral TID WITH MEALS cinacalcet (SENSIPAR) tablet 60 mg 60 mg Oral DAILY lamoTRIgine (LaMICtal) tablet 50 mg 50 mg Per G Tub e BID pantoprazole (PROTONIX) granules for oral suspension 40 mg 40 mg Per G TubeA CB valproic acid (as sodium salt) (DEPAKENE) 250 mg/5 mL (5 mL) oral solution 750mg 750 mg Oral BID ALPRAZolam (XANAX) tablet 0.5 mg 0.5 mg Per G Tube QHS acetamino phen (TYLENOL) solution 650 mg 650 mg Oral Q4H PRN heparin (porcine) injection 5,0 00 Units 5,000 Units SubCUTAneous Q12H influenza vaccine 2018- (65 yrs+)(PF) (FLUZONE HIGH-DOSE) injection 0.5 mL0.5 mL IntraMUSCular PRIOR TO DISCHARGE albute rol-ipratropium (DUO-NEB) 2.5 MG-0.5 MG/3 ML 3 mL Nebulization Q6H RT piperacillin-t azobactam (ZOSYN) 3.375 g in 0.9% sodium chloride (MBP/ADV) 100mL MBP 3.375 g In traVENous [id number] Problems: Acute respiratory failure with hypoxia (HCC) ( 01/10/2019) Pneumonia involving right lung (01/10/2019) Hyponatremia (01/10/2019)Ass essment:1. ACUTE HYPERCAPNIC AND HYPOXIC RESPIRATORY FAILURE2. ATELECTASIS R U L 3. PNEUMONIA R L L AND L L L4. AC COPD BETTER5. MENTAL RETARDATION6. CAT SCA N CHEST WITH I V CONTRAST RULED OUT LUNG NODULE7. DYSPHAGIA8. EPILEPSY 9. METABO LIC ENCEPHALOPATHY 10. RT .PLEURAL EFFUSIONPLAN : AGREE WITH I V ZOSYNDU O NEB Q 4 H BIPAP FOR RESPIRATORY . DISTRESS BUDESONIDE 500 MCG VIA MINI NE B Q 1 2 H MUCOMYST VIA MINI NEB BID PROGNOSIS IS GUARDED . Krystian rodríguez MD F.C.C.P.January 16, 20192:25 PM Name Value Range Interpretation Code Description Data Harriett rce(s) Supporting Document(s ) ID Date Data Source [id number] 01/16/2019 01:59:18 PM EDT [facility] ID Progress Note01/16/2019Subjective:Siri ent with mental retardation,recurrent aspiration pneumonia.on BIPAPNon verbal, unable to provide history.AfebrileCultures negativeObjective:Vitals:Patient Vitals for the past 24 hrs: BP Temp Pulse Resp [id number]/16/19 0724 114/66 96.8 F (36 C) 80 20 97 %01/16/19 0455 123/66 97 F (36.1 C) 72 22 96 %01/16/19 0245 - - - - 99 %1 2341 - - 95 - -01/15/19 2107 - - - - 98 %01/15/19 2006 94/58 97.8 F (36.6 C ) (!) 111 22 96 %01/15/19 1710 - - - - 93 %01/15/19 1524 103/62 97.4 F (36.3 C) (!) 102 22 90 %Tmax: Temp (24hrs), Av.3 F (36.3 C), Min:96.8 F (36 C), Max:97 .8 F(36.6 C)Physical Exam:General: Lethargic non verbal on BiPAPNeck: Suppl e, symmetrical, trachea midline, no adenopathLungs: Decrease breath sounds at bases.Heart: Regular rate and rhythm, S1, S2 normalAbdomen: Soft, non-tender . Bowel sounds normal. No masses, No organomegaly.+feeding tubeBack: No CVA tenderness.Extremities: Chronic lymphedema.Pulses: 2+ and symmetric all extremities.Skin: Skin color, texture, turgor normal. No rashes or lesionsCurrent Faci lity-Administered MedicationsMedication Dose Route Frequency acetylcysteine (MUCOMYS T) 100 mg/mL (10 %) nebulizer solution 400 mg 4 mLNebulization BID RT multivit-folic acid-herbal 275 (WELLESSE PLUS) oral liquid 30 mL 30 mL Per GTube DAILY budesonide (PULMICORT) 500 mcg/2 ml nebulizer suspension 500 mcg NebulizationBID RT sodium chloride (NS) flush 5-10 mL 5-10 mL IntraVENous PRN cholestyramine-aspartam e (QUESTRAN LIGHT) packet 4 g 4 g Oral TID WITH MEALS cinacalcet (SENSIPAR) tablet 60 mg 60 mg Oral DAILY lamoTRIgine (LaMICtal) tablet 50 mg 50 mg Per G Tub e BID pantoprazole (PROTONIX) granules for oral suspension 40 mg 40 mg Per G TubeA CB valproic acid (as sodium salt) (DEPAKENE) 250 mg/5 mL (5 mL) oral solution 750mg 750 mg Oral BID ALPRAZolam (XANAX) tablet 0.5 mg 0.5 mg Per G Tube QHS acetamino phen (TYLENOL) solution 650 mg 650 mg Oral Q4H PRN heparin (porcine) injection 5,0 00 Units 5,000 Units SubCUTAneous Q12H influenza vaccine 2018- (65 yrs+)(PF) (FLUZONE HIGH-DOSE) injection 0.5 mL0.5 mL IntraMUSCular PRIOR TO DISCHARGE albute rol-ipratropium (DUO-NEB) 2.5 MG-0.5 MG/3 ML 3 mL Nebulization Q6H RT piperacillin-t azobactam (ZOSYN) 3.375 g in 0.9% sodium chloride (MBP/ADV) 100mL MBP 3.375 g In traVENous X1YDhvg:Recent Labs 01/15/1905WBC 6.7 5.7 4.4 *HGB 11.0* 11.6* 10.4*PLT 266 282 239BUN 10 9 8CREA 0.52* 0.37* 0.38*Cultures:Lab Resu ltsComponent Value Date/Time Culture result: NO GROWTH 1 DAY 01/10/2019 08:58 AM Cult ure result: NO GROWTH 5 DAYS 01/10/2019 07:55 AM Culture result: NO GROWTH 5 DAYS 12/15 07:40 AMRadiology:No results found.Assessment: Aspiration pneumonia. Acute hypoxic respiratory failure. Dysphagia Pleural effusion. . COPD Pl an:1. Continue IV zosyn.Cassy Beauchamp 20181:57 PM Name Value Range Interpretation Code Description Data [facility] rce(s) Supporting Document(s ) ID Date Data Source [id number] 01/16/2019 01:57:09 PM EDT [facility] ID Progress Note01/15/2019Subjective:Siri ent with mental retardation,recurrent aspiration pneumonia.Non verbal,unable t o provide history.AfebrileCultures negativeNo new events..Objective:Vitals:Patient Vit als for the past 24 hrs: BP Temp Pulse Resp [id number]/15/19 0745 121/68 97.6 F (36.4 C) 79 24 96 %01/15/19 0425 116/74 97.8 F (36.6 C) 77 18 99 %01/15/19 0157 - - - - 98 %01/14/194 - - - - 99 %01/14/19 2110 116/69 97.5 F (36.4 C) 79 19 99 %01/142 - - - - 98 %01/14/19 1550 101/51 96.9 F (36.1 C) 83 18 91 %Tmax: Temp (24hrs), Av.5 F (36.4 C), Min:96.9 F (36.1 C), Max:97.8 F(36.6 C)Physical Exam:General: Awake non verbal cooperative, no distressNeck: Supple, symmetrical, tr achea midline, no adenopathLungs: Bilateral breath sounds with basal crackles.Heart: Regular rate and rhythm, S1, S2 normalAbdomen: Soft, non-tender. Bowel sounds normal. No masses, No organomegaly.+feeding tubeBack: No CVA tenderness.Extremities: Chronic lymphedema.Pulses: 2+ and symmetric all extremities.Skin: Skin color, texture, turgor normal. No rashes or lesionsCurrent Faci lity-Administered MedicationsMedication Dose Route Frequency multivit-folic acid-her bal 275 (WELLESSE PLUS) oral liquid 30 mL 30 mL Per GTube DAILY acetylcysteine (MUCO MYST) 100 mg/mL (10 %) nebulizer solution 600 mg 6 mLNebulization BID budesonide (PU LMICORT) 500 mcg/2 ml nebulizer suspension 500 mcg NebulizationBID RT sodium chlor wade (NS) flush 5-10 mL 5-10 mL IntraVENous PRN cholestyramine-aspartame (QUESTRAN LIGHT) packet 4 g 4 g Oral TID WITH MEALS cinacalcet (SENSIPAR) tablet 60 mg 60 m g Oral DAILY lamoTRIgine (LaMICtal) tablet 50 mg 50 mg Per G Tube BID pantoprazol e (PROTONIX) granules for oral suspension 40 mg 40 mg Per G TubeACB valproic acid ( as sodium salt) (DEPAKENE) 250 mg/5 mL (5 mL) oral solution 750mg 750 mg Oral BID AL PRAZolam (XANAX) tablet 0.5 mg 0.5 mg Per G Tube QHS acetaminophen (TYLENOL) soluti on 650 mg 650 mg Oral Q4H PRN heparin (porcine) injection 5,000 Units 5,000 U nits SubCUTAneous Q12H influenza vaccine 2018- (65 yrs+)(PF) (FLUZONE HIGH-DOSE ) injection 0.5 mL0.5 mL IntraMUSCular PRIOR TO DISCHARGE albuterol-ipratropium (DUO -NEB) 2.5 MG-0.5 MG/3 ML 3 mL Nebulization Q6H RT piperacillin-tazobactam (ZOSYN) 3.375 g in 0.9% sodium chloride (MBP/ADV) 100mL MBP 3.375 g IntraVENous [id number]:R ecent Labs 01/14/1906WBC 5.7 4.4* 5.2HGB 11.6* 10 .4* 11.0*PLT 282 239 262BUN 9 8 6*CREA 0.37* 0.38* 0.35*Cultures:Lab ResultsComponent Value Date/Time Culture result: NO GROWTH 1 DAY 01/10/2019 08:58 AM Culture result: NO GROWTH 5 DAYS 01/10/2019 07:55 AM Culture result: NO GROWTH 5 DAYS 01/10/2019 07:4 0 AMRadiology:Ct Chest W Cont F/uResult Date: 01/15/2019CT CHEST W CONT F/U Clinical da ta: R U L NODULE NEAR TRACHEA / BLOOD VESSEL.Priors: 01/10/2019. Technique: CT scan of the chest was performed from thethoracic inlet to below the diaphragm following administration of intravenouscontrast. The acquisition da ta was reviewed in the axial, sagittal and coronalplane. 100 cc of low osmolar iodi nated contrast-isovue 300 was injectedintravenously for the examinatio n. Utilizing silver holloware assembler algorithm theexamination was performed to optimize imaging quality by utilizing the lowestpossible radiation dose. Findings: There is no evidence of pathologicallymphadenopathy within the m ediastinum, bilateral hilar and bilateral axillarylocation. There is no evidence of a central endobronchial or an endotrachealmass. Previously seen nodule along the right lateral wall of the trachea nolonger visualized. This may have repr esented a mucus lung which has dislodged.Coronary artery calcifications noted. Atherosclerotic thoracic aorta withoutaneurysmal dilatation. Elevated l eft hemidiaphragm. There is a small leftpleural effusion with underlying pas sive atelectatic changes similar to priorstudy. Improved previously seen ri ght lower lobe lung infiltrate. There isassociated small right pleural effusio n similar to prior examination. No newlung pathology is observed. Included upper ab dominal organs: No significantpathology is observed within the visualized upper abd ominal organs.IMPRESSION: 1. Previously seen tracheal nodule is no longer visualized. 2.Small left pleural effusion with underlying passive atelectatic changes s imilarto prior study. Stable elevation of the left hemidiaphragm. 3. Stable small right pleural effusion. Interval improvement in the right lower lobe lunginfiltrate. No new lung findings seen.Assessment: Aspiration pneumonia. Acute hypoxic res piratory failure. Dysphagia Pleural effusion. . COPD Plan:1. Continue IV z osyn.Natasha Dudley MDOctober 20182:20 PM Name Value Range Interpretation Code Description Data Harriett rce(s) Supporting Document(s ) ID Date Data Source [id number] 01/16/2019 12:49:39 PM EDT [facility] Progress NotePatient: Evelio Carlin Sex: male DOA: 01/10/2019Date of : 1950 Age: 68 y.o. :[id number]:Reyes Carlin is 68 y.o. male Who is more awake and alert. He is appearingcomfortable. He is pulling off his nasal canula. The RN is requestingrestraints.Will order Mitts for restraints.Pt Presented to the ED from [facility] with medical history of Dysphagia ,s/p surgical placement of peg on 11/17/18, severe intellectual disability,Chronic respiratory failure, large Hiatal Hernia, hyperparathyroid unspecified,personal h/ o pulmonary embolus, anxiety disorder, kyphosis and schizophrenia. Ptis nonverb al at baseline and is unable to provide a history.Per long-term transfer record s, at 6 AM, patient was found Hypoxic, with O2SAT of 87 % on O2 NC 87 % on 4 LPM, h eart rated 111 BPM, Blood Pressure of 105/73, respiratoryrate of 30 andaudible wheeze. Nebulizer treatment was given. He was placed on a NRM withimproved O2 SAT to 95 % , his respiratory rate was 30 and he was afebrile. Thenursing home transfer r ecord reporting that the resident removes nasal canulaat times. In the ED pt appe aring lethargic and having mild respiratory distress.CXR showing haziness at the rig ht lung base due to small effusion withatelectasis/infiltrate. No confluen t left lung process is seen. 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 Pupils are equalNeck : Supple, symmetrical, no adenopathy, no carotid bruit and no JVD.Lungs: Clear to auscultation bilaterally. No Wheezing or Rhonchi. No rales.Chest wall: No Acces augusto muscle use.Heart: Regular rate and rhythm, no murmur, or rubAbdomen: Pos itive Peg in place, soft non-tender. Not distended. Bowel soundsnormal. No cortney sExtremities: Extremities normal, atraumatic, No cyanosis. No edema. No clubbingSkin: Warm and dry. No rashes or lesions. Not JaundicedLymph nodes: Cervical, supracla vicular normal.Psych: Not anxious or agitated.Neurologic: EOMs intact. No fac ial asymmetry. No aphasia or slurred speech.Generalized weakness, non ambulat ory at baseline,, Alert and Awake.Intake and Output:Current Shift: No intake/output data recorded.Last three shifts: 01/14 1901 - 01/16 0700In: 3230 [I.V.:1300]Out: 200 0 [Urine:1999]Lab/Data Reviewed:Recent Days:Recent Labs 01/14/1906WBC 6.7 5.7 4.4*HGB 11.0* 11.6* 10.4*HCT 34.1* 35.3* 31.1*PLT 266 282 239Recent Labs 01/15/1905840127PE 133* 134* 137K 4.2 4.2 4. 1CL 95* 94* 99CO2 37* 32 36*GLU 119* 77 112*BUN 10 9 8CREA 0.52* 0.37* 0.38*CA 9 .5 8.9 8.4*MG 2.1 2.0 1.9PHOS 2.5 2.9 3.4ALB 1.8* 2.0* 1.7*No results for input(s): P H, PCO2, PO2, HCO3, FIO2 in the last 72 hours.CULTURE, BLOOD [[id number]] (Order [id number])MicrobiologyDate: 01/10/2019 Department: [facility]urg Released By/ Authorizing: Wes Romero MD (auto-released)Specimen Information: Blo od Component Value Flag Ref Range Units StatusSpecial Requests: Preliminary NO SPECIAL REQUESTSCulture result: NO GROWTH 3 DAYSCULTURE, BLOOD [[id number]] (Order [id number])MicrobiologyDate: 01/10/2019 Department: [facility] Surg Released By/ Authorizing: Wes Romero MD (auto-released)Specimen Information: Blo od Component Value Flag Ref Range Units StatusSpecial Requests: Preliminary NO SPECIAL REQUESTSCulture result: NO GROWTH 3 DAYSCULTURE, URINE [[id number]] (Order [id number])MicrobiologyDate: 01/10/2019 Department: [facility] Med Surg Released By/ Authorizing: Wes Romero MD (auto-released)Specimen Information: Neo an catch; Urine Component Value Flag Ref Range Units StatusSpecial Requests: FinalNO SPECIAL REQUESTSCulture result: NO GROWTH 1 DAY FinalXr Chest Sngl VRe sult Date: 12/25/2018Portable chest x-ray. PRIOR EXAM: X-ray 12/18/2018 HISTORY: Pneu monia FINDINGS:The heart is normal in size. The mediastinum and pulmonary vessels ar eunremarkable. There is a small right pleural effusion.. A tube projected overthe left upper quadrant of the abdomen..IMPRESSION: Small right pleural effusion.Ct Chest Wo ContResult Date: 01/10/2019CT CHEST WO CONT Clinical data: evaluation of pneumonia r t lung. Priors:12/18/2018 Technique: CT scan of the chest was performed from the thoraci c inletto below the diaphragm without administration of intravenous contrast. Theacquisition data was reviewed in the axial, sagittal and coronal plane.Utiliz ing silver holloware assembler algorithm the examination was performed to optimizeimaging quality by utilizing the lowest possible radiation dose. Findings: Thereis no evidence of p athological lymphadenopathy within the mediastinum, bilateralhilar and bilatera l axillary location. There is a 1.8 cm nodule along the rightwall of the trache a at the level of the thoracic inlet (best seen on image 13ofseries 2) not seen on the prior study. This may be due to a mucous plug. Noadditional endotracheal or endo bronchial lesion is noted.Normal heart size.Coronary artery calcifications note d. Atherosclerotic thoracic aorta withoutaneurysmal dilatation. Evaluation lung windows demonstrates patchy right lowerlobe lung infiltrate. There is asso ciated small right pleural effusion similarto prior. There is also small left pleural effusion with underlying passiveatelectasis slightly decreased from the prior study. No new lung pathology isobserved. Included upper abdominal organs: No significant p athology is observedwithin the visualized upper abdominal organs.IMPRESSION: Small bilateral pleural effusion. Right effusion is similar toprior study. Left effusion slightly decreased in size. Patchy right lungopacities which may be due to pneumo freddy similar to previous examinations. 1.8cm nodule along the right lateral wall of t he trachea at the level of thethoracic inlet not observed on the prior study and can be due to a mucous plug.Ct Chest Wo ContResult Date: 12/18/2018Referring Physi chaya: KRYSTIAN MONAE Patient Name: EVELIO CARLIN THIS IS AFINAL REPORT FROM [facility] DATE OF SERVICE: 2018-12-18 01:22:40 IMAGES:555 EXAM: CT CHEST WO CO NTRAST HISTORY: .. Right lower lobe atelectasis..TECHNIQUE: Helical axial im aging from the thoracic inlet through the adrenalglands without contrast. Sagittal and coronal reconstructions were obtained.COMPARISON: CT chest without co ntrast of 12/13/2018. FINDINGS: .. Evaluationremains limited due to lack of IV contrast and patient positioning. The imagedthyroid gland remains atrophic. Th e aorta remains normal in caliber.Atherosclerotic calcifications a re again seen in the aorta. There is againcardiomediastinal shift towards the right. The heart remains normal in size andno pericardial effusion is noted. No obvious lymphadenopathy seen on thisunenhanced scan. No pneumothorax is noted. Since the prior exam there is beenincrease in bilateral pleural effusi ons with associated consolidations. Acalcified granuloma is again seen in th e right lower lobe. The imaged upperabdomen does not demonstrate any gross acute maggy nges. Osteopenia is again noted.Degenerative changes again seen in the imaged spine. Old healed right posteriorlower rib fractures are again seen.IMPRESSION: .. Limited s tudy demonstrating increase in bilateral pleuraleffusions with associated consoli dations with persistent cardiomediastinal shifttowards the right. Stable findings as noted above.. One or more of the followingdose reduction techniques were used: automated exposure control, adjustment ofthe mA and/or kV according to patient size, use of iterative reconstructivetechnique. THIS DOCUMENT H BEEN ELECTRONICALLY SIGNED Kamran Gillette MD 12/18/2018 04:49 GINA Verde Please call [facility] [employer] Consultant [phone] with questions. This report was electronically signed by: Tala MENDEZ 12/18/2018 04: 50 AMCta Up Ext Lt W ContResult Date: 12/18/2018History: Arm claudication. FINDI NGS: CTA of the left upper extremity wasperformed helically from level of the shoulder through the fingers after theintravenous administration of 119 cc of Isovue. Sagittal, coronal, and 3-Dreconstructed images obtained on an RealtimeBoard workstation are submitted. Noprior studies are available for comparison. Th e left subclavian artery is widelypatent. It is continuous with a widely patent left axillary artery. The axillaryartery is continuous with a widely patent left bra chial artery. The brachialartery bifurcates into a radial and ulnar artery just belo w the elbow. From thispoint distally streak artifact from patient positioning limits evaluation.However, the ulnar artery appears widely patent to the wrist. The radial a rteryis less well opacified but does appear patent to the wrist as well. Anintraosse ous artery also appears patent although it is poorly visualized aswell. The digital ar teries are not visualized on this study. There arebilateralpleural effusions note d both of which are moderate to large. Theeffusion on the left one is larger th an the right. Bibasilar atelectatic changethroughout much of the lower lobes is seen. There is a significant shift ofmediastinal structures to the right. T he liver is decreased in attenuationcompatible with fatty infiltr ation. The spleen is unremarkable. The adrenalglands are normal in appearance. The pancreas is grossly normal as is thegallbladder. A gastrostomy tube is no mikel in situ. The kidneys are unremarkable.There is a midline abdomina l wall hernia containing large and small bowel aswell as mesentery without eviden ce of obstruction. There is some presacralthickening and possibly some fr ee fluid noted. The patient is status post ORIFof the left hip with metallic hardwa re in situ.IMPRESSION: Patent left upper extremity arterial vessels although eval uationdistally is limited. Bilateral pleural effusions and bibasilar atelectasis.Shif t of mediastinal structures to the right.Ct Abd Pelv Wo ContResult Date: 12/21/2018His tory: ? Maturity of g-tube tract Technique: CT of the abdomen and pelvis wasperforme d from the dome of the diaphragm to the pubic symphysis without oral orintravenous con trast with dose lowering techniques. Sagittal and coronalreconstructions were performe d. Evaluation of solid abdominal viscera iscompromised by by the lack of intraven ous contrast. Evaluation of the bowelloops is compromised lack of oral contrast. All C T scans at this facility areperformed using dose optimization technique as appropria te to a performed exam,to include automated exposure control, adjustment of the mA a nd/or kV accordingto patient size (including appropriate matching first site-specific examinations), or use of iterative reconstruction technique. Comparison: CT scanof the chest performed 12/19/18 Findings: There is a small right pleural effusionw ith adjacent atelectasis. There is minimal left pleural fluid with adjacentatelecta sis. There is a pigtail catheter again identified on the left. The exactlocatio n of this catheter is difficult to ascertain benefits above the diaphragmto below the diaphragm. On today's study the tip appears to be located below thediaphragm. There is a small right pleural effusion with adjacent atelectasis.There is a G-tube i dentified in the stomach. The liver, gallbladder, spleen,pancreas, kidneys an d adrenal glands are unremarkable. No abdominal, pelvic oringuinal lymphadenop athy is identified. No free intraperitoneal fluid is noted.There is a ventral wall h ernia containing loops of what appear to be small bowelhowever are difficult to foll ow. There is mild perirectal stranding andpresacral edema correlate clinically. No dilated loops of bowel are identified.There is mild diverticulosis of the colon. The prostate, bladder and seminalvesicles appear unremarkable. The re are streak artifact obscuring portions ofthe pelvis due to a left hip ORIF. The re is subcutaneous gas identified alongthe right lower anterior pelvic wall.IMPRESS ION: There is a G-tube identified in the stomach. There is a tailcatheter identif ied on the left. The tip appears to be located below thediaphragm although is d ifficult to assess on CT. There is a small residualamount of pleural fluid as well as atelectasis along the left diaphragm. Thereis perirectal stranding and presacr al edema.Ct Thoracentesis Insrt Chest TubeResult Date: 12/19/2018History: Pleura l effusion. PROCEDURE: After being informed of the risks,benefits, and potential alt ernatives procedure informed consent was obtained.The patient was placed on the t able in the [id number] decubitus position.CT scanning was performed locat ion was chosen over the left flank. However, dueto the significant amount of patient motion and breathing motion was difficultto accurately assess a location for percuta neous paracentesis. Therefore, thiswas performed manually. After the chosen reg ion was prepped and draped in thenormal sterile fashion using maximum sterile ba rrier technique a lidocaineneedle was placed in the skin. This appeared to be in good position. Lidocainewas then used to anesthetize the skin and subcutaneous ti ssues in this location.Attempts were made to pass an 8 Congolese pigtail catheter throug h this location.However, patient continuous motion was significant as well as excess ivebreathing during the procedure. The catheter was placed at the same interspa ceas well as marked on the prior CT sequence however, due to the excessive patientmot ion the catheter was far more inferior within the chest that on the priorsequences. Th e catheter appeared to enter the hemiabdomen on the left from theleft chest. The cath eter was then pulled back to position where clear yellowfluid was aspirated. It was then sewn in position However, It appeared tomigrate forward and on the CT scanning appeared to again transgress thediaphragm. It was therefore pulled back to a point where only a clear fluid wasaspirated and respiratory variation was noted within t he tube. It was then sewnin position using 2-0 silk sutures. FINDINGS: Initial CT s debora revealed amoderate left pleural effusion. Attempts to nancy an adequate l ocation forpercutaneous thoracentesis were quite limited due to excessive patient m otionand breathing throughout the procedure. A location that appear to be a safelocat ion was marked. However, when the catheter was placed in this sameinterspace as wel l as marked the catheter appeared to be far more inferiorwithin the hemithorax than that seen previously. It appeared to enter the lefthemithorax inferiorly and transg ress the diaphragm with no evidence pathologicsequela. Therefore, it was pul led back into the pleural space for adequatedrainage. 130 cc of lightly bloo d-tinged fluid was aspirated. The catheter wasattached to a Pleur-evac and wall suc tion.IMPRESSION: Left-sided thoracentesis described above.Xr Chest PortResult Date : 01/10/2019XR CHEST PORT Clinical data: Sepsis Priors: 12/29/2018. Findings: Exam ination iscompromised due to limited inspiration and patient rotation. Heart size isunchanged. Haziness seen at the right lung base can be due to small effu sionwith atelectasis/infiltrate. No confluent left lung process is seen. No evidence of CHF.IMPRESSION: Limited study. Suspect right lung base process which ma y be due tosmall effusion with atelectasis/infiltrate.Xr Chest PortResu lt Date: 12/29/2018History: leukocytosis Technique: Portable chest x-ray 9 11:01 AMComparison: 12/25/2018. FINDINGS: There is a right lower lobe infiltrate o ratelectasis which is increased since prior exam. There is poor inspiration.There is a small left pleural effusion. The exam is rotated. Evaluation of thecardiac silhou ette is limited by projection. The visualized osseous structuresappear unremarkable.IM PRESSION: There is a right lower lobe infiltrate or atelectasis which isincrea sed since prior exam.Xr Chest PortResult Date: 12/18/2018Portable chest x-ray. PRIO R EXAM: 12/12/2018 and 11/25/2018 HISTORY: Pneumonia andpleural effusions FINDINGS: The heart is normal in size. The mediastinum andpulmonary vessels are unremarkable. T here is haziness within the lung basesbilaterally... The bony structures are intact.IMPRESSION: Haziness within the lung bases bilaterally that could repres entsmall pleural effusions and/or subsegmental atelectasis. Similar findin gs wereseen on prior exams.Duplex Upper Ext Venous LeftResult Date: 12/26/2018DUPLEX UPPER EXT VENOUS LEFT Clinical Data: Arm swelling, DVT suspectedFindings: The vis ualized segments of the left upper extremity venous circulationfrom the level of the subclavian vein to the brachial vein is compressible andshows normal phasic flow without an intraluminal thrombus. In addition, theinternal jugular vein and t he basilic vein is also patent. Extremely limitedexam because the patient was unab le to cooperate and this was done in a portablefashion.IMPRESSION: No evidence of deep vein thrombosis within the visualized left upperextremity venous circulation. Limited study.Duplex Lower Ext Venous BilatResult Date: 01/11/2019HISTORY: swel ling to lower extremities TECHNIQUE: Bilateral lower extremityvenous Doppler ultrasound Using real time and color-flow Doppler as well asspectral analysis and ultrasound examination was performed of the lowerextremities bilaterally. FINDINGS: On the right side the common femoral vein,superficial femoral vein along its entire course, as well as popliteal vein allappeared widely patent, were easily c ompressible, showed normal spontaneousflow. The calf veins were not visualized due t o body habitus. On the left sidethe common femoral vein, superficial femoral vein a long its entire course, aswell as popliteal vein all appeared widely patent, were ea sily compressible, andshowed normal spontaneous flow. The calf veins were no t visualized due to bodyhabitus.IMPRESSION: Normal bilateral lower extremity venous Doppler ultrasound with noevidence of deep vein thrombosis.Medications reviewedCurr ent Facility-Administered MedicationsMedication Dose Route Frequen cy acetylcysteine (MUCOMYST) 100 mg/mL (10 %) nebulizer solution 400 mg 4 mLNebuli zation BID RT multivit-folic acid- herbal 275 (WELLESSE PLUS) oral liquid 30 mL 30 mL Per GTube DAILY budesonide (PULMICORT) 500 mcg/2 ml nebulizer suspension 500 mcg N ebulizationBID RT sodium chloride (NS) flush 5-10 mL 5-10 mL IntraVENous PRN choles tyramine-aspartame (QUESTRAN LIGHT) packet 4 g 4 g Oral TID WITH MEALS cinacalcet ( SENSIPAR) tablet 60 mg 60 mg Oral DAILY lamoTRIgine (LaMICtal) tablet 50 mg 50 mg Per G Tube BID pantoprazole (PROTONIX) granules for oral suspension 40 mg 40 m g Per G TubeACB valproic acid (as sodium salt) (DEPAKENE) 250 mg/5 mL (5 mL) oral solution 750mg 750 mg Oral BID ALPRAZolam (XANAX) tablet 0.5 mg 0.5 mg Per G Tube QHS acetaminophen (TYLENOL) solution 650 mg 650 mg Oral Q4H PRN heparin (porcine) injection 5,000 Units 5,000 Units SubCUTAneous Q12H influenza vaccine 201 9-20 (65 yrs+)(PF) (FLUZONE HIGH-DOSE) injection 0.5 mL0.5 mL IntraMUSCular YUAN OR TO DISCHARGE albuterol-ipratropium (DUO-NEB) 2.5 MG-0.5 MG/3 ML 3 mL Nebul ization Q6H RT piperacillin-tazobactam (ZOSYN) 3.375 g in 0.9% sodium chloride (MBP/ADV) 100mL MBP 3.375 g IntraVENous O5AXtiohooyxh/Plan:Hospital Problems Da te Reviewed: 01/14/2019 Codes Class Noted POA Acute respiratory failure with hypoxia (HCC) ICD-10-CM: J96.01ICD-9-CM: 518.81 01/10/2019 Unknown Pneumonia invo lving right lung ICD-10-CM: J18.9ICD-9-CM: 486 01/10/2019 Unknown Hyponatremia ICD- 10-CM: E87.1ICD-9-CM: 276.1 01/10/2019 YesAssessment: Acute Respiratory Failur e with Hypercapnia and HypoxiaPneumonia likely Aspiration RLLAtelectasisDysphagi a s/p surgical placed pegMentally challengedSeizureHyperparathyroidLeft an kle and pedal edema- ResolvedPlan:Continuous O2 NC/PRN Bipap per pulmonaryIV zosyn pe r IDNebulizersFollow culturesRestraints with mittsContinue with bolus TF for Bao Frankel MDOctober 2018Time: 11:49 PM Name Value Range Interpretation Code Description Data Harriett rce(s) Supporting Document(s ) ID Date Data Source [id number] 01/16/2019 07:39:57 AM EDT [facility] Bedside and Verbal shift change report g iven to Teresa Ohara RN (oncomingnurse) by Ronald Montoya RN (offgoing nurse) . Report included the following information SBAR, Kardex, MARand Recent Results. Name Value Range Interpretation Code Description Data Harriett rce(s) Supporting Document(s ) ID Date Data Source [id number] 01/16/2019 06:25:54 AM EDT [facility] Name Value Range Interpretation Description Data Sup porting Code Source(s) Document(s ) Leukocytes 6.7 K/uL 4.8-10.6 [facility] - [#/volume] in Good Blood by [facility] Erythrocytes 3.35 4.70-6.0 Below low normal [facility] - [#/volume] in M/uL 0 Good Blood by [facility] Hemoglobin 11.0 14.0-18. Below low normal [facility] - [Mass/volume] in g/dL 0 [facility] Blood [facility] Hematocrit 34.1 % 42.0-52. Below low normal [facility] - [Volume 0 Good Fraction] of [facility] Blood by [facility] Automated count Erythrocyte mean 101.8 FL 81.0-94. Above high normal [facility] - corpuscular 0 Good volume [Entitic Taoist volume] by [facility] Automated count Erythrocyte mean 32.8 PG 27.0-35. [facility] - corpuscular 0 Good hemoglobin Taoist [Entitic mass] [facility] by Automated count Erythrocyte mean 32.3 30.7-37. [facility] - corpuscular g/dL 3 Good hemoglobin [facility] [Mass/volume] by Automated count Erythrocyte 16.5 % 11.5-14. Above high normal [facility] - distribution 0 Good width [Ratio] by [facility] Automated count Hospital Platelets 266 K/uL 130-400 [facility] - [#/volume] in [facility] Blood by [facility] Automated count Hospital Platelet mean 8.7 FL 9.2-11.8 Below low normal [facility] - volume [Entitic Good volume] in [facility] by Automated Hospital count Segmented 60 % 48.0-72. [facility] - neutrophils/100 0 Good leukocytes in [facility] Lymphocytes/100 24 % 18.0-40. [facility] - leukocytes in 0 [facility] Monocytes/100 13 % 2.0-12.0 Above high normal [facility] - leukocytes in [facility] Eosinophils/100 3 % 0.0-7.0 [facility] - leukocytes in [facility] Basophils/100 0 % 0.0-3.0 [facility] - leukocytes in [facility] Segmented 3.8 K/UL 1.5-6.6 [facility] - neutrophils Good [#/volume] in [facility] Lymphocytes 1.6 K/UL 1.5-3.5 [facility] - [#/volume] in [facility] Monocytes 0.9 K/UL 0.0-1.0 [facility] - [#/volume] in [facility] Eosinophils 0.2 K/UL 0.0-0.7 [facility] - [#/volume] in [facility] Basophils 0.0 K/UL 0.0-0.1 [facility] - [#/volume] in [facility] Differential [facility] - cell count [facility] method [facility] Immature 2 % 0.0-2.0 [facility] - granulocytes/100 Good leukocytes in [facility] Automated count ID Date Data Source [id number] 01/16/2019 06:20:39 AM EDT [facility] Name Value Range Interpretation Description Data Sup porting Code Source(s) Document(s ) Sodium 133 136-145 Below low normal [facility] - Good [Moles/volume] mmol/L [facility] in Serum or Hospital Plasma Potassium 4.2 3.5-5.1 [facility] - Good [Moles/volume] mmol/L [facility] in Serum or Hospital Plasma Chloride 95 98-107 Below low normal [facility] - Good [Moles/volume] mmol/L [facility] in Serum or Hospital Plasma Carbon 37 21-32 Above high normal [facility] - Good dioxide, total mmol/L [facility]ist [Moles/volume] Hospital in Serum or Plasma Anion gap in 5 mmol/L 10-20 Below low normal [facility] - Go od Serum or [facility] Plasma Hospital Glucose 119 74-106 Above high normal [facility] - Good [Mass/volume] mg/dL [facility] in Serum or Hospital Plasma Urea nitrogen 10 mg/dL 7-18 [facility] - Good [Mass/volume] Taoist in Serum or Hospital Plasma Creatinine 0.52 0.70-1.3 Below low normal [facility] - Good [Mass/volume] mg/dL 0 [facility] in Serum or Hospital Plasma Glomerular >60 [facility] - Good filtration Taoist rate/1.73 sq M Hospital predicted among blacks [Volume Rate/Area] in Serum or Plasma by Creatinine-bas ed formula (MDRD) Glomerular >60 [facility] - Good filtration Taoist rate/1.73 sq M Hospital predicted among non-blacks [Volume Rate/Area] in Serum or Plasma by Creatinine-bas ed formula (MDRD) Calcium 9.5 8.5-10.1 [facility] - Good [Mass/volume] mg/dL [facility] in Serum or Hospital Plasma Phosphate 2.5 2.5-4.9 [facility] - Good [Mass/volume] mg/dL [facility] in Serum or Hospital Plasma Albumin 1.8 g/dL 3.5-4.7 Below low normal [facility] - Good [Mass/volume] Taoist in Serum or Hospital Plasma by Bromocresol purple (BCP) dye binding method ID Date Data Source [id number] 01/16/2019 06:20:39 AM EDT [facility] Name Value Range Interpretation Description Data Sup porting Code Source(s) Document(s ) Magnesium 2.1 mg/dL 1.6-2.6 [facility] - Good [Mass/volume] [facility] in Serum or Hospital Plasma ID Date Data Source [id number] 01/16/2019 12:53:20 AM EDT [facility] Problem: Falls - Risk ofGoal: *Absence o f FallsDescriptionDocument Samra Fall Risk and appropriate interventions in the jhon wsheet.Outcome: Progressing Towards GoalNote:Fall Risk Interventions:Mobilit y Interventions: Bed/chair exit alarmMentation Interventions: Bed/chair exit alarm, Toileting roundsMedication Interventions: Bed/chair exit alarmElimi nation Interventions: Bed/chair exit alarm, Toileting schedule/hourlyroundsHistory o f Falls Interventions: Bed/chair exit alarm, Door open when patientunattendedProblem: Pressure Injury - Risk ofGoal: *Prevention of pressure injuryDescriptionDocument Br dheeraj Scale and appropriate interventions in the flowsheet.Outcome: Progressing Towar ds GoalNote:Pressure Injury Interventions:Sensory Interventions: Nelda ck visual cues for pain, Float heels, Monitor skinunder medical devices, Suspension jeff ots, Pressure redistribution bed/mattress(bed type), Turn and reposition approx. every two hours (pillows and wedges ifneeded)Moisture Interventions: Interna l/External urinary devices, Check forincontinence Q2 hours and as needed, Apply protective barrier, creams andemollientsActivity Interventions: Pre ssure redistribution bed/mattress(bed type)Mobility Interventions: Float heels , Pressure redistribution bed/mattress (bedtype), Suspension boots, Turn and re position approx. every two hours(pillow andwedges)Nutrition Interventions: Docum ent food/fluid/supplement intakeFriction and Shear Interventions: Apply protective ba rrier, creams andemollients, Foam dressings/transparent film/skin sealants Problem: Tissue Perfusion - Cardiopulmonary, AlteredGoal: *Absence of hypoxiaOutcome: Progressing Towards Goal Name Value Range Interpretation Code Description Data Harriett rce(s) Supporting Document(s ) ID Date Data Source [id number] 01/15/2019 07:43:21 PM EDT [facility] Bedside and Verbal shift change report g ankit botello JR, RN (oncoming nurse) by NANCY ASCENCIO (offgoing nurse). Repo rt included the following information SBAR,Kardex, MAR and Recent Results. Name Value Range Interpretation Code Description Data Harriett rce(s) Supporting Document(s ) ID Date Data Source [id number] 01/15/2019 06:32:22 PM EDT [facility] PULMONARY/ CCM- Consult NotePatient: Ivelisse Carlin Sex: male DOA: 01/10/2019Date of : 1 Age: 68 y.o. LOS: LOS: 5 daysHPI: step down.Evelio Carlin is a 68 y.o. 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 Authorizing ProvidervalACYc lovir (VALTREX) 1 gram tablet Take 1,000 mg by mouth two (2) times a day.Yes Provide r, Historicalacetaminophen (TYLENOL) 325 mg suppository Insert 650 mg into rectum ev james four(4) hours as needed for Fever. Yes Provider, Historicalclorazepate (TRANXEN E) 3.75 mg tablet 1 Tab by Per G Tube route nightly. MaxDaily Amount: 3.75 mg. Mili Hills DOmultivitamin (ONE A DAY) tablet 1 Tab by Per G Tube route da pierre. 12/30/18Mili Hills DOcinacalcet (SENSIPAR) 30 mg tablet Take 2 Tabs by m outh daily. 12/30/18 Mili Hills DOlamoTRIgine (LAMICTAL) 25 mg tablet 2 Tabs by Per G Tube route two (2) times aday. 12/30/18 Mili Hills DOalbuterol-i pratropium (DUO-NEB) 2.5 mg-0.5 mg/3 ml nebu 3 mL by Nebulizationroute every six (6) hours. Every 6 hours while awake 12/30/18 Reinier, Mili,DOalbuterol-ipratropium (DUO-NEB) 2.5 mg-0.5 mg/3 ml nebu 3 mL by Nebulizationroute every four (4) hours a s needed for Cough (wheezing, shortness of breath).12/30/18 Mili Hills DObud esonide (PULMICORT) 0.5 mg/2 mL nbsp 2 mL by Nebulization route two (2) timesa day. Mili Hills DObacitracin 500 unit/gram ointment Apply 1 Packet to aff ected area two (2) timesa day. Indications: minor skin infection due to bacteria, fa cial scabs 12/30/18Mili Hills DOcholestyramine-aspartame (QUESTRAN LIG HT) 4 gram packet Take 1 Packet by mouththree (3) times daily (with meals). 12/30/18 Mili Hills DOpantoprazole (PROTONIX) 40 mg granules for oral suspension 40 mg by Per G Tuberoute Daily (before breakfast). 11/28/18 Mili Hills DOvalproate ( DEPAKENE) 250 mg/5 mL syrup Take 750 mg by mouth two (2) times a day.Provider, Jazmine Thao Known AllergiesNo past surgical history on file.No family history on yoshi e.Social HistorySocioeconomic History Marital status: SINGLE Spouse name: Not on file Number of children: Not on file Years of education: Not on file Highest education level: Not on fileTobacco Use Smoking status: Never Smoker Smokeless tobacco: Never UsedSubstance and Sexual Activity Alcohol use: No Drug use: NoR eview of SystemsPertinent items are noted in the History of Present Illness.Physical Exam:Current medications:Current Facility-Administered Medications: mul tivit-folic acid-herbal 275 (WELLESSE PLUS) oral liquid 30 mL, 30 mL, PerG Tube, Reinier LOUISE Shirley, DO, 30 mL at 01/15/19 0845 acetylcysteine (MUCOMYST) 100 mg/ mL (10 %) nebulizer solution 600 mg, 6 mL,Nebulization, BID, Krystian Monae MD, 600 mg at 01/15/19 0811 budesonide (PULMICORT) 500 mcg/2 ml nebulizer suspe nsion, 500 mcg,Nebulization, BID RT, Mili Hills DO, 500 mcg at 01/15/19 0811 sodium chloride (NS) flush 5-10 mL, 5-10 mL, IntraVENous, PRN, Wes Romero MD cholestyramine-aspartame (QUESTRAN LIGHT) packet 4 g, 4 g, Oral, TID WITHMEALS, Ne lson, DO Mili, 4 g at 01/15/19 1712 cinacalcet (SENSIPAR) tablet 60 mg, 60 m g, Oral, DAILY, Mili Hills DO,60 mg at 01/15/19 0847 lamoTRIgine (LaMICtal) t ablet 50 mg, 50 mg, Per G Tube, BID, Mili Hills DO, 50 mg at 01/15/19 1713 hay toprazole (PROTONIX) granules for oral suspension 40 mg, 40 mg, Per GTube, ACB, Mili Hills DO, 40 mg at 01/15/19 0846 valproic acid (as sodium salt) (DEPAKEN E) 250 mg/5 mL (5 mL) oral adbebesw693 mg, 750 mg, Oral, BID, Mili Hills DO, 750 mg at 01/15/19 1713 ALPRAZolam (XANAX) tablet 0.5 mg, 0.5 mg, Per G Tube, QHS, Mili Hills DO, 0.5 mg at 01/14/19 2152 acetaminophen (TYLENOL) solution 650 mg, 650 mg, Oral, Q4H PRN, Mili Hills DO heparin (porcine) injection 5,000 Units, 5,000 Units, SubCUTAneous, Q12H,Mili Hills DO, 5,000 Units at 01/15/19 123 1 influenza vaccine 2019- (65 yrs+)(PF) (FLUZONE HIGH-DOSE) injection 0.5 mL,0.5 mL, IntraMUSCular, PRIOR TO DISCHARGE, Mili Hills DO albuterol-ipratrop ium (DUO-NEB) 2.5 MG-0.5 MG/3 ML, 3 mL, Nebulization, Q6HRT, Krystian Monae MD, 3 mL at 01/15/19 1346 piperacillin-tazobactam (ZOSYN) 3.375 g in 0.9% sodium chloride (MBP/ADV) 100mL MBP, 3.375 g, IntraVENous, Q8H, Natasha Dudley MD, Last Rate: 25 mL/hr at1 1626, 3.375 g at 01/15/19 1626DataVisit Vitals BP 103/62 (BP 1 Location: Right arm, BP Patient Position: Head of bed elevated(C omment degrees))Pulse (!) 102Temp 97.4 F (36.3 C)Resp 22Ht 5' 2" (1.575 m)Wt 56. 4 kg (124 lb 4.8 oz)SpO2 93%BMI 22.73 kg/m Intake and Output:Date 01/14/19 0700 - 1 59 01/15/19 0700 - 01/16/19 0659Shift 5864-1617 9988-9027 24 Hour To krystian 7316-1865 4012-4963 24 Hour TotalINTAKENG/GT 5589 566 2219 340 340 Water Flush Volume (mL) (PEG/Gastrostomy Tube) 300 100 400 100 100 Medication V olume (PEG/Gastrostomy Tube) 400 400 Intake (ml) (PEG/Gastrostomy Tube) 480 480 240 240Shift Total(mL/kg) 1180(20.9) 100(1.8) 1280(22.7) 340(6) 340(6)OUTPUTUrine(mL/ kg/hr) 325(0.5) 300(0.4) 625(0.5) 1700 1700 Urine Voided 395 493 6799 1700 Urine Output (mL) ([REMOVED] Urinary Catheter 01/15/19) 300 300Shift Total(mL/kg) 325 (5.8) 300(5.3) 625(11.1) 1700(30.2) 1700(30.2)NET 855 -200 655 -1360 -1360W eight (kg) 56.4 56.4 56.4 56.4 56.4 56.4Pulse OX:SpO2 Readings from Last 6 Encounters: 01/15/19 93%12/30/18 96%11/27/18 91%09/26/15 96%@LASTSAO2(6)@PHYSICAL EXAM:General: Lethargic,responding.Head: Normocephalic, without obvious abnormality, atraumatic. Eyes: Conjunctivae clear, anicteric sclerae. Pupils are equalNose: Nares n ormal. No drainage or sinus tenderness.Throat: Lips, mucosa, and tongue normal. No ThrushNeck: Supple, symmetrical, no adenopathy, thyroid: no n tender no carotid bruit and no JVD.Back: Symmetric, No CVA tenderness.Lungs: Scattered rhonchi,Chest wall: No tenderness or deformity. No Accessory muscle use.He art: Regular rate and rhythm, no murmur, rub or gallop.Abdomen: Soft, non-tende r. Not distended. Bowel sounds normal. No massesExtremities: Extremities normal, a traumatic, No cyanosis. No edema. No clubbingSkin: Texture, turgor normal . No rashes or lesions. Not JaundicedLymph nodes: Cervical, supraclavicular normal. Psych: Good insight. Not depressed. Not anxious or agitated.Neurologic: EOMs int act. No facial asymmetry. No aphasia or slurred speech.Most recent labs:Recent L abs 01/14/1906WBC 5.7 4.4* 5.2HGB 11.6* 10 .4* 11.0*HCT 35.3* 31.1* 33.9*PLT 282 239 262Recent Labs 01/14/1906 7 NA 134* 137 134*K 4.2 4.1 3.6CL 94* 99 95*CO2 32 36* 35*GLU 77 112* 93BU N 9 8 6*CREA 0.37* 0.38* 0.35*CA 8.9 8.4* 8.7MG 2.0 1.9 1.8PHOS 2.9 3.4 2.5ALB 2.0 * 1.7* 1.9*No results for input(s): PH, PCO2, PO2, HCO3, FIO2 in the last 72 hours.ABG :No results for input(s): PH, PCO2, PO2, HCO3, FIO2 in the last 72 hours.Cultures :No results found for: SDESLab ResultsComponent Value Date/Time Culture result: NO GROWTH 1 DAY 01/10/2019 08:58 AM Culture result: NO GROWTH 5 DAYS 019 07:55 AM Culture result: NO GROWTH 5 DAYS 01/10/2019 07:40 AM Culture result: NO G ROWTH 5 DAYS 12/29/2018 11:23 AM Culture result: NO GROWTH 5 DAYS 12/29/2018 11:0 0 AM Culture result: 10,000 to 50,000 COLONIES/mL KLEBSIELLA PNEUMONIAE (A) 11:00 AM Culture result: 50,000-100,000 COLONIES/mL PSEUDOMONAS A ERUGINOSA (A)12/29/2018 11:00 AM Culture result: (A) 12/29/2018 11:00 AM 10,000 to 50,000 COLONIES/mL STAPHYLOCOCCUS EPIDERMIDIS Culture result: NO GROWTH 2 DAYS 12/24/2018 09:45 AM Culture result: NO GROWTH 5 DAYS 12/23/2018 12:00 PM Cultur e result: NO GROWTH 5 DAYS 12/23/2018 11:40 AM Culture result: NO GROWTH 4 DAYS 09/2018 12:30 PM Culture result: NO GROWTH 4 DAYS 12/19/2018 12:30 PM Culture result: NO GROWTH 1 DAY 12/12/2018 08:04 PM Culture result: NO GROWTH 5 DAYS 12/12/2018 07:4 0 PM Culture result: NO GROWTH 5 DAYS 12/12/2018 07:40 PM Culture result: NO G ROWTH 2 DAYS 11/20/2018 09:00 AM Culture result: NO GROWTH 5 DAYS 11/07/2018 08:1 0 PM Culture result: NO GROWTH 5 DAYS 11/07/2018 08:00 PMImages:Cta Chest W Or W Wo ContResult Date: 11/08/2018Examination: CTA Chest ? PE angiography History: Hypo magdy; rule out pneumoniaversus pulmonary embolism Priors: None Technique: Low-d ose, multiplanar,helical CTA chest was performed with bolus IV injection from lung apices tobases. 3D-reformatted images were obtained and reviewed on a dedicate d viewingworkstation and directly supervised. Contrast: A total of 71 mL of Isovue-370 was administered intravenously for this procedure. Findings: No evidence ofpulmo nary embolism is seen. There is decreased size of the right hemithorax fromchronic scarring and retraction with mediastinal shift left to right.Additional area of c onsolidation is seen in the right lower lobe and suggestssuperimposed pneumonia with subsegmental atelectasis. Subsegmental atelectasisis also noted in the left jorge g base, with pleural parenchymal scarring. Lowlung volumes are seen. No pneumothora x seen. Aorta normal in caliber withoutaneurysm or dissection. Mediastin um no adenopathy. Mediastinal shift is seen inthe left and right as a result of chr onic changes in the right hemithorax.Heart shows no chamber enlargement or pericard ial effusion. No acute fracturesseen in the bony thorax, sternum, manubrium and rib cage. Multiple compressiondeformities are seen in the mid and lower thoracic spine , with superimposedspondyloarthropathy. Cannot exclude acute fracture.Impression : No evidence of pulmonary embolism Right lower lobe pneumoniasuggested. Incidenta l scarring and retraction in the right hemithorax fromremote/chronic inflammato ry disease and/or trauma. Bibasilar subsegmentalatelectasis. Report Electron ically Signed By: Pawel Zafar M.D. -11/08/2018 12:40 AMXr Chest PortResult D ate: 11/07/2018XR CHEST PORT CLINICAL INDICATION PROVIDED:. "sob." COMPARISON: . 09/26/2015.FINDINGS:. The pericardial/cardiac silhouette is enlarg ed in the transversedimension. There is no pulmonary vascular congestion or interst itial edema.Linear density in the left lung base and faint densities in the right mi d tolower lung likely represent atelectasis. There is no lobar consolidation oreffusi on. There is no pneumothorax.IMPRESSION:. Bilateral lower lung atelectasis. No donna dence of consolidation oreffusion.Assessment/PlanActive Problem s: Acute respiratory failure with hypoxia (HCC) (01/10/2019) Pneumonia involving r ight lung (01/10/2019) Hyponatremia (01/10/2019) Acute resp failure combined, pneumonia acute copd exacerbation pe ruled out.PLAN,Monitoring,bipap prn for resp d istressIvabx as per id,Steroid nebbipap prn and at night.Neb,feeding started.D/w mason sing staff.d/w dr hills.Stella Hamilton MDOctober 2018The billing code submit mikel in association with this evaluation also includes thetime to review patient's yuan or records, communicate with the physician team,obtain corroborating data, and disc uss the risk and benefits of the proposedmanagement plan with the patient and their family >30 minutes. Name Value Range Interpretation Code Description Data Harriett rce(s) Supporting Document(s ) ID Date Data Source [id number] 01/15/2019 12:42:10 PM EDT [facility] Problem: Falls - Risk ofGoal: *Absence o f FallsDescriptionDocument Samra Fall Risk and appropriate interventions in the jhon wsheet.Outcome: Progressing Towards GoalNote:Fall Risk Interventions:Mobilit y Interventions: Communicate number of staff needed forambulation/transferMentation I nterventions: Adequate sleep, hydration, pain controlMedication Interventions: Evaluat e medications/consider consulting pharmacyElimination Interventions: Call light in reachHistory of Falls Interventions: Door open when patient unattendedProblem : Pressure Injury - Risk ofGoal: *Prevention of pressure injuryDescriptionDocument Br dheeraj Scale and appropriate interventions in the flowsheet.Outcome: Progressing Towar ds GoalNote:Pressure Injury Interventions:Sensory Interventions: Ass ess changes in LOCMoisture Interventions: Absorbent underpadsActivity Intervention s: Pressure redistribution bed/mattress(bed type)Mobility Interventions: Float heels Nutrition Interventions: Document food/fluid/supplement intakeFriction and Shear Interventions: Foam dressings/transparent film/skin sealants Name Value Range Interpretation Code Description Data [facility] rce(s) Supporting Document(s ) ID Date Data Source [id number] 01/15/2019 12:37:32 PM EDT [facility] Progress NotePatient: Evelio Carlin Sex: male DOA: 01/10/2019Date of : 1950 Age: 68 y.o. :[id number]:Reyes Carlin is 68 y.o. male appearing comfortable.Wearing O2 NC, on BIPAP over night..Pt presented to the ED from [facility] with medical history of Dysphagia ,s/p surgi inez placement of peg on 11/17/18, severe intellectual disability,Chronic respira tory failure, large Hiatal Hernia, hyperparathyroid unspecified,personal h/ o pulmonary embolus, anxiety disorder, kyphosis and schizophrenia. Ptis nonverb al at baseline and is unable to provide a history.Per long-term transfer record s, at 6 AM, patient was found Hypoxic, with O2SAT of 87 % on O2 NC 87 % on 4 LPM, h eart rated 111 BPM, Blood Pressure of 105/73, respiratoryrate of 30 andaudible wheeze. Nebulizer treatment was given. He was placed on a NRM withimproved O2 SAT to 95 % , his respiratory rate was 30 and he was afebrile. Thenursing home transfer r ecord reporting that the resident removes nasal canulaat times. In the ED pt appe aring lethargic and having mild respiratory distress.CXR showing haziness at the rig ht lung base due to small effusion withatelectasis/infiltrate. No confluen t left lung process is seen. Sodium tdodx707.ABG with pH 7.46/53/66/38 O2 SA T 95 % on NC 4 LPM.The patient was admitted with encounter diagnosis of Acute Respir atory Failurewith hypercapnia and hypoxia, Pneumonia RLL likely Aspiration and Ate lectasis.Also, diag of Dysphagia s/p surgical placed peg, COPD, mentally challenged,se izure and hyperparathyroid are pertinent to this visit.The RN reporting that patient is tolerating his bolus tube feedings. CT scan chest wo contrast dated 01/10/19 dianna wed 1.8 cm nodule along the rightlateral wall of the trachea at the level of the thora cic inlet not obs on theprior study and can be due to a mucous plug.CT chest w contr ast being ordered today by Pulmonary for follow up.Past Medical History:Diagnosis Date Chronic obstructive pulmonary disease (HCC) GERD (gastroesophageal reflux dis ease) Hyperparathyroidism (HCC) Mental retardation Parkinsonism due to drug (H CC) Pneumonia Psychiatric disorder Pulmonary emboli (HCC) Schizophrenia (H CC)Review of Systems: [x] Unable to obtain ROS due to patient factors.Objective:Vis it VitalsBP 101/51 (BP 1 Location: Right arm, BP Patient Position: At rest)Pulse 83Tem p 96.9 F (36.1 C)Resp 18Ht 5' 2" (1.575 m)Wt 56.4 kg (124 lb 4.8 oz)SpO2 91%BMI 22.73 kg/m PHYSICAL EXAM:General: Alert, cooperative, no distress, appears stated age.Head: Normocephalic, without obvious abnormality, atraumatic.Eyes: Conjunct ivae clear, anicteric sclerae. Pupils are equalNeck: Supple, symmetrical, no stephanie nopathy, no carotid bruit and no JVD.Back: Symmetric, No CVA tenderness.Lungs: Clear to auscultation bilaterally. No Wheezing or Rhonchi. No rales.Chest wall : No Accessory muscle use.Heart: Regular rate and rhythm, no murmur, or rub.Abdo men: Soft, non-tender. Not distended. Bowel sounds normal. No massesExtremitie s: Extremities normal, atraumatic, No cyanosis. No edema. No clubbingSkin: Warm and dry. No rashes or lesions. Not JaundicedLymph nodes: Cervical, supracla vicular normal.Psych: Not anxious or agitated.Neurologic: EOMs intact. No fac ial asymmetry. Nonverbal. . Alert and Awake,nonambulatoryIntake and Output:Cur rent Shift: No intake/output data recorded.Last three shifts: 01/12 1901 - 01/14 0700In: -Out: 2150 [Urine:2150]Lab/Data Reviewed:Recent Day s:Recent Labs 01/14/1904WBC 4.4* 5.2 4.9HGB 10.4* 11 .0* 10.8*HCT 31.1* 33.9* 33.2*PLT 239 262 246Recent Labs 01/14/1904NA 137 134* 137K 4.1 3.6 3.8CL 99 95* 99CO2 36* 35* 36*GLU 112* 93 99BU N 8 6* 10CREA 0.38* 0.35* 0.40*CA 8.4* 8.7 8.8MG 1.9 1.8 1.6PHOS 3.4 2.5 2.2*ALB 1. 7* 1.9* 1.9*No results for input(s): PH, PCO2, PO2, HCO3, FIO2 in the last 72 tammy rs.Xr Chest Sngl VResult Date: 12/25/2018Portable chest x-ray. PRIOR EXA M: X-ray 12/18/2018 HISTORY: Pneumonia FINDINGS:The heart is normal in size. Th e mediastinum and pulmonary vessels areunremarkable. There is a small right pleural effusion.. A tube projected overthe left upper quadrant of the abdomen..IMPR ESSION: Small right pleural effusion.Ct Chest Wo ContResult Date: 01/10/2019CT CHEST WO CONT Clinical data: evaluation of pneumonia rt lung. Priors:12/18/2018 Technique: CT s can of the chest was performed from the thoracic inletto below the diaphragm wit hout administration of intravenous contrast. Theacquisition data was reviewed in the axial, sagittal and coronal plane.Utilizing silver holloware assembler algorithm the examination w as performed to optimizeimaging quality by utilizing the lowest possible radiation dose. Findings: Thereis no evidence of pathological lymphadenopathy within the mediastinum, bilateralhilar and bilateral axillary location. There is a 1.8 cm no dule along the rightwall of the trachea at the level of the thoracic inlet (best se en on image 13ofseries 2) not seen on the prior study. This may be due to a mucou s plug. Noadditional endotracheal or endobronchial lesion is noted.Normal hea rt size.Coronary artery calcifications noted. Atherosclerotic thoracic aorta withouta neurysmal dilatation. Evaluation lung windows demonstrates patchy right lowerlobe lung infiltrate. There is associated small right pleural effusion similarto prior. There is also small left pleural effusion with underlying passiveatelectasis slightly d ecreased from the prior study. No new lung pathology isobserved. Included upper abd ominal organs: No significant pathology is observedwithin the visualized upper abdo wanda organs.IMPRESSION: Small bilateral pleural effusion. Right effusion is sim ilar toprior study. Left effusion slightly decreased in size. Patchy right lungopa cities which may be due to pneumonia similar to previous examinations. 1.8cm nodule along the right lateral wall of the trachea at the level of thethoracic inlet not ob served on the prior study and can be due to a mucous plug.Ct Chest Wo ContResult Date: 9/5/2019Referring Physician: KRYSTIAN MONAE Patient Name: EVELIO CARLIN THIS IS AFINAL REPORT FROM [facility] DATE OF SERVICE: 2018-12-18 01:22:40 IMAGES:555 EXAM: CT CHEST WO CONTRAST HISTORY: .. Right lower lobe atelectasis..TECHNIQUE: Helic al axial imaging from the thoracic inlet through the adrenalglands without contra st. Sagittal and coronal reconstructions were obtained.COMPARISON: CT chest without co ntrast of 12/13/2018. FINDINGS: .. Evaluationremains limited due to lack of IV contrast and patient positioning. The imagedthyroid gland remains atrophic. Th e aorta remains normal in caliber.Atherosclerotic calcifications a re again seen in the aorta. There is againcardiomediastinal shift towards the right. The heart remains normal in size andno pericardial effusion is noted. No obvious lymphadenopathy seen on thisunenhanced scan. No pneumothorax is noted. Since the prior exam there is beenincrease in bilateral pleural effusi ons with associated consolidations. Acalcified granuloma is again seen in th e right lower lobe. The imaged upperabdomen does not demonstrate any gross acute maggy nges. Osteopenia is again noted.Degenerative changes again seen in the imaged spine. Old healed right posteriorlower rib fractures are again seen.IMPRESSION: .. Limited s tudy demonstrating increase in bilateral pleuraleffusions with associated consoli dations with persistent cardiomediastinal shifttowards the right. Stable findings as noted above.. One or more of the followingdose reduction techniques were used: automated exposure control, adjustment ofthe mA and/or kV according to patient size, use of iterative reconstructivetechnique. THIS DOCUMENT H BEEN ELECTRONICALLY SIGNED Kamran Gillette MD 12/18/2018 04:49 GINA Verde Please call [facility] [phone] with questions. This report was electronically signed by: Tala MENDEZ 12/18/2018 04: 50 AMCta Up Ext Lt W ContResult Date: 12/18/2018History: Arm claudication. FINDI NGS: CTA of the left upper extremity wasperformed helically from level of the shoulder through the fingers after theintravenous administration of 119 cc of Isovue. Sagittal, coronal, and 3-Dreconstructed images obtained on an i ndependent workstation are submitted. Noprior studies are available for comparison. Th e left subclavian artery is widelypatent. It is continuous with a widely patent left axillary artery. The axillaryartery is continuous with a widely patent left bra chial artery. The brachialartery bifurcates into a radial and ulnar artery just belo w the elbow. From thispoint distally streak artifact from patient positioning limits evaluation.However, the ulnar artery appears widely patent to the wrist. The radial a rteryis less well opacified but does appear patent to the wrist as well. Anintraosse ous artery also appears patent although it is poorly visualized aswell. The digital ar teries are not visualized on this study. There arebilateralpleural effusions note d both of which are moderate to large. Theeffusion on the left one is larger th an the right. Bibasilar atelectatic changethroughout much of the lower lobes is seen. There is a significant shift ofmediastinal structures to the right. T he liver is decreased in attenuationcompatible with fatty infiltr ation. The spleen is unremarkable. The adrenalglands are normal in appearance. The pancreas is grossly normal as is thegallbladder. A gastrostomy tube is no mikel in situ. The kidneys are unremarkable.There is a midline abdomina l wall hernia containing large and small bowel aswell as mesentery without eviden ce of obstruction. There is some presacralthickening and possibly some fr ee fluid noted. The patient is status post ORIFof the left hip with metallic hardwa re in situ.IMPRESSION: Patent left upper extremity arterial vessels although eval uationdistally is limited. Bilateral pleural effusions and bibasilar atelectasis.Shif t of mediastinal structures to the right.Ct Abd Pelv Wo ContResult Date: 12/21/2018His tory: ? Maturity of g-tube tract Technique: CT of the abdomen and pelvis wasperforme d from the dome of the diaphragm to the pubic symphysis without oral orintravenous con trast with dose lowering techniques. Sagittal and coronalreconstructions were performe d. Evaluation of solid abdominal viscera iscompromised by by the lack of intraven ous contrast. Evaluation of the bowelloops is compromised lack of oral contrast. All C T scans at this facility areperformed using dose optimization technique as appropria te to a performed exam,to include automated exposure control, adjustment of the mA a nd/or kV accordingto patient size (including appropriate matching first site-specific examinations), or use of iterative reconstruction technique. Comparison: CT scanof the chest performed 12/19/18 Findings: There is a small right pleural effusionw ith adjacent atelectasis. There is minimal left pleural fluid with adjacentatelecta sis. There is a pigtail catheter again identified on the left. The exactlocatio n of this catheter is difficult to ascertain benefits above the diaphragmto below the diaphragm. On today's study the tip appears to be located below thediaphragm. There is a small right pleural effusion with adjacent atelectasis.There is a G-tube i dentified in the stomach. The liver, gallbladder, spleen,pancreas, kidneys an d adrenal glands are unremarkable. No abdominal, pelvic oringuinal lymphadenop athy is identified. No free intraperitoneal fluid is noted.There is a ventral wall h ernia containing loops of what appear to be small bowelhowever are difficult to foll ow. There is mild perirectal stranding andpresacral edema correlate clinically. No dilated loops of bowel are identified.There is mild diverticulosis of the colon. The prostate, bladder and seminalvesicles appear unremarkable. The re are streak artifact obscuring portions ofthe pelvis due to a left hip ORIF. The re is subcutaneous gas identified alongthe right lower anterior pelvic wall.IMPRESS ION: There is a G-tube identified in the stomach. There is a tailcatheter identif ied on the left. The tip appears to be located below thediaphragm although is d ifficult to assess on CT. There is a small residualamount of pleural fluid as well as atelectasis along the left diaphragm. Thereis perirectal stranding and presacr al edema.Ct Thoracentesis Insrt Chest TubeResult Date: 12/19/2018History: Pleura l effusion. PROCEDURE: After being informed of the risks,benefits, and potential alt ernatives procedure informed consent was obtained.The patient was placed on the t able in the [id number] decubitus position.CT scanning was performed locat ion was chosen over the left flank. However, dueto the significant amount of patient motion and breathing motion was difficultto accurately assess a location for percuta neous paracentesis. Therefore, thiswas performed manually. After the chosen reg ion was prepped and draped in thenormal sterile fashion using maximum sterile ba rrier technique a lidocaineneedle was placed in the skin. This appeared to be in good position. Lidocainewas then used to anesthetize the skin and subcutaneous ti ssues in this location.Attempts were made to pass an 8 Congolese pigtail catheter throug h this location.However, patient continuous motion was significant as well as excess ivebreathing during the procedure. The catheter was placed at the same interspa ceas well as marked on the prior CT sequence however, due to the excessive patientmot ion the catheter was far more inferior within the chest that on the priorsequences. Th e catheter appeared to enter the hemiabdomen on the left from theleft chest. The cath eter was then pulled back to position where clear yellowfluid was aspirated. It was then sewn in position However, It appeared tomigrate forward and on the CT scanning appeared to again transgress thediaphragm. It was therefore pulled back to a point where only a clear fluid wasaspirated and respiratory variation was noted within t he tube. It was then sewnin position using 2-0 silk sutures. FINDINGS: Initial CT s debora revealed amoderate left pleural effusion. Attempts to nancy an adequate l ocation forpercutaneous thoracentesis were quite limited due to excessive patient m otionand breathing throughout the procedure. A location that appear to be a safelocat ion was marked. However, when the catheter was placed in this sameinterspace as wel l as marked the catheter appeared to be far more inferiorwithin the hemithorax than that seen previously. It appeared to enter the lefthemithorax inferiorly and transg ress the diaphragm with no evidence pathologicsequela. Therefore, it was pul led back into the pleural space for adequatedrainage. 130 cc of lightly bloo d-tinged fluid was aspirated. The catheter wasattached to a Pleur-evac and wall suc tion.IMPRESSION: Left-sided thoracentesis described above.Xr Chest PortResult Date : 01/10/2019XR CHEST PORT Clinical data: Sepsis Priors: 12/29/2018. Findings: Exam ination iscompromised due to limited inspiration and patient rotation. Heart size isunchanged. Haziness seen at the right lung base can be due to small effu sionwith atelectasis/infiltrate. No confluent left lung process is seen. No evidence of CHF.IMPRESSION: Limited study. Suspect right lung base process which ma y be due tosmall effusion with atelectasis/infiltrate.Xr Chest PortResu lt Date: 12/29/2018History: leukocytosis Technique: Portable chest x-ray 9 11:01 AMComparison: 12/25/2018. FINDINGS: There is a right lower lobe infiltrate o ratelectasis which is increased since prior exam. There is poor inspiration.There is a small left pleural effusion. The exam is rotated. Evaluation of thecardiac silhou ette is limited by projection. The visualized osseous structuresappear unremarkable.IM PRESSION: There is a right lower lobe infiltrate or atelectasis which isincrea sed since prior exam.Xr Chest PortResult Date: 12/18/2018Portable chest x-ray. PRIO R EXAM: 12/12/2018 and 11/25/2018 HISTORY: Pneumonia andpleural effusions FINDINGS: The heart is normal in size. The mediastinum andpulmonary vessels are unremarkable. T here is haziness within the lung basesbilaterally... The bony structures are intact.IMPRESSION: Haziness within the lung bases bilaterally that could repres entsmall pleural effusions and/or subsegmental atelectasis. Similar findin gs wereseen on prior exams.Duplex Upper Ext Venous LeftResult Date: 12/26/2018DUPLEX UPPER EXT VENOUS LEFT Clinical Data: Arm swelling, DVT suspectedFindings: The vis ualized segments of the left upper extremity venous circulationfrom the level of the subclavian vein to the brachial vein is compressible andshows normal phasic flow without an intraluminal thrombus. In addition, theinternal jugular vein and t he basilic vein is also patent. Extremely limitedexam because the patient was unab le to cooperate and this was done in a portablefashion.IMPRESSION: No evidence of deep vein thrombosis within the visualized left upperextremity venous circulation. Limited study.Duplex Lower Ext Venous BilatResult Date: 01/11/2019HISTORY: swel ling to lower extremities TECHNIQUE: Bilateral lower extremityvenous Doppler ultrasound Using real time and color-flow Doppler as well asspectral analysis and ultrasound examination was performed of the lowerextremities bilaterally. FINDINGS: On the right side the common femoral vein,superficial femoral vein along its entire course, as well as popliteal vein allappeared widely patent, were easily c ompressible, showed normal spontaneousflow. The calf veins were not visualized due t o body habitus. On the left sidethe common femoral vein, superficial femoral vein a long its entire course, aswell as popliteal vein all appeared widely patent, were ea sily compressible, andshowed normal spontaneous flow. The calf veins were no t visualized due to bodyhabitus.IMPRESSION: Normal bilateral lower extremity venous Doppler ultrasound with noevidence of deep vein thrombosis.Medications reviewedCurr ent Facility-Administered MedicationsMedication Dose Route Frequen cy multivit-folic acid-herbal 275 (WELLESSE PLUS) oral liquid 30 mL 30 mL Per GTube DAILY potassium, sodium phosphates (NEUTRA-PHOS) packet 1 Packet 1 Packet Per GTube QID acetylcysteine (MUCOMYST) 100 mg/mL (10 %) nebulizer solution 600 mg 6 mLNebulization BID budesonide (PULMICORT) 500 mcg/2 ml nebulizer suspension 500 m cg NebulizationBID RT sodium chloride (NS) flush 5-10 mL 5-10 mL IntraVENous PRN cholestyramine-aspartame (QUESTRAN LIGHT) packet 4 g 4 g Oral TID WITH MEALS dominick acalcet (SENSIPAR) tablet 60 mg 60 mg Oral DAILY lamoTRIgine (LaMICtal) tablet 50 mg 50 mg Per G Tube BID pantoprazole (PROTONIX) granules for oral suspension 40 mg 40 mg Per G TubeACB valproic acid (as sodium salt) (DEPAKENE) 250 mg/5 mL (5 m L) oral solution 750mg 750 mg Oral BID ALPRAZolam (XANAX) tablet 0.5 mg 0.5 mg Per G Tube QHS acetaminophen (TYLENOL) solution 650 mg 650 mg Oral Q4H PRN he lili (porcine) injection 5,000 Units 5,000 Units SubCUTAneous Q12H influenza vacci ne 2019-20 (65 yrs+)(PF) (FLUZONE HIGH-DOSE) injection 0.5 mL0.5 mL IntraMUSCular YUAN OR TO DISCHARGE albuterol-ipratropium (DUO-NEB) 2.5 MG-0.5 MG/3 ML 3 mL Nebul ization Q6H RT piperacillin-tazobactam (ZOSYN) 3.375 g in 0.9% sodium chloride (MBP/ADV) 100mL MBP 3.375 g IntraVENous [id number]/Plan:Hospital Problems Da te Reviewed: 01/14/2019 Codes Class Noted POA Acute respiratory failure with hypoxia (HCC) ICD-10-CM: J96.01ICD-9-CM: 518.81 01/10/2019 Unknown Pneumonia invo lving right lung ICD-10-CM: J18.9ICD-9-CM: 486 01/10/2019 Unknown Hyponatremia ICD- 10-CM: E87.1ICD-9-CM: 276.1 01/10/2019 YesAssessment:Lung nodule right lateral wall of trachea(seen on CT wo contrast) Acute Respiratory Failure with Hypercapn ia and HypoxiaPneumonia likely Aspiration RLLAtelectasisDysphagia s/p surgical jocelyn riley pegMentally challengedSeizureHyperparathyroidLeft an kle and pedal edema- Resolved(DVT Ruled OUT) -Plan:Continuous O2 NC/PRN Bipap per pu lmonaryIV zosyn per IDF/u CT chest with contrastNebulizersFollow culturesRestrai nts with mittsContinue with bolus TF for now TC placed to pt and Mrs Resplar (pt s ister)No answer ; left a Christofer Onofre 2018Time: 4:27 PM Name Value Range Interpretation Code Description Data Harriett rce(s) Supporting Document(s ) ID Date Data Source [id number] 01/15/2019 11:43:33 AM EDT [facility] Problem: Nutrition DeficitGoal: *Optimiz e nutritional statusDescriptionPt to progress towards meeting >80% nutrient needs with in 3-7 daysOutcome: Progressing Towards GoalIf bolus feedings desired, suggest i ncrease to Osmolite 1.5, 5 cans daily (totalto provide 1775 kcal, 75 gm pro, 2 41 gm CHO, 58 gm fat, 905 mL water) and 65 mLfree water flush before and after each bolus once Na+ WNLGiven recurrent aspiration pneumonia, would suggest changing to con tinuousfeeding Name Value Range Interpretation Code Description Data Harriett rce(s) Supporting Document(s ) ID Date Data Source [id number] 01/15/2019 11:43:10 AM EDT [facility] NUTRITIONFollow Up NoteSubjective: Pt to lerating bolus feedings (4x daily) per RN.Nutrition Rx: Osmolite 1.5 bolus, 1 c an q 6 hr, free water 100 mL after bolusLabs: Na 134 Creat 0.37Medications reviewed. R eceiving Questran Light.Skin: Redness to scab in center, L lateral ankle (per flowshee t)Butch score 121+ LLE edemaWeight: 56.4 kg (up 1.3 kg since initial assessment)Nutr ition Diagnosis: remains the same (Increased protein and energy needs)If bolus feedin gs desired, suggest increase to Osmolite 1.5, 5 cans daily (totalto provide 1775 kcal, 75 gm pro, 241 gm CHO, 58 gm fat, 905 mL water) and 65 mLfree water flush before and after each bolus once Na+ WNLGiven recurrent aspiration pneumonia, would lemus ggest changing to continuousfeedingWill continue to monitor EN, Skin integrity.D ischarge Planning: Pending clinical courseAlexa Justin Correa, YINA Name Value Range Interpretation Code Description Data [facility] rce(s) Supporting Document(s ) ID Date Data Source [id number] 01/15/2019 10:48:22 AM EDT [facility] CT CHEST W CONT F/UClinical data: R U L NODULE NEAR TRACHEA / BLOOD VESSEL.Priors: 01/10/2019.Technique: CT scan of the ches t was performed from the thoracic inlet to belowthe diaphragm following administrat ion of intravenous contrast. The acquisitiondata was reviewed in the axia l, sagittal and coronal plane. 100 cc of lowosmolar iodinated contrast-isovue 300 was injected intravenously for theexamination. Utilizing silver holloware assembler a lgorithm the examination was performed tooptimize imaging quality by utilizing the lowest possible radiation dose. Findings: There is no evidence of pathological lym phadenopathy within themediastinum, bilateral hilar and bilateral axillary location. There is noevidence of a central endobronchial or an endotracheal mass. P reviously seennodule along the right lateral wall of the trachea no longer visualized . Thismay have represented a mucus lung which has dislodged. Coronary arterycal cifications noted. Atherosclerotic thoracic aorta without aneurysmaldilatation.[place] mikel left hemidiaphragm. There is a small left pleural effusion withunderlying pas sive atelectatic changes similar to prior study. Improvedpreviously seen right lo wer lobe lung infiltrate. There is associated smallright pleural effusion s imilar to prior examination. No new lung pathology isobserved.Included upper abdo wanda organs: No significant pathology is observed within thevisualized upper abdo wanda organs.IMPRESSION: 1. Previously seen tracheal nodule is no longer visualized. 2. Small left pleural effusion with underlying passive atelectatic changessi milar to prior study. Stable elevation of the left hemidiaphragm.3. Stable small right pleural effusion. Interval improvement in the rightlower lobe lung infiltrate. No new lung findings seen. Signing date/time: 01/15/2019 10:48 AMSigned by: HIGINIO BLACKWELL Name Value Range Interpretation Code Description Data Harriett rce(s) Supporting Document(s ) ID Date Data Source [id number] 01/15/2019 09:40:33 AM EDT [facility] Progress NotePatient: Evelio Carlin Sex: male DOA: 01/10/2019Date of : 1950 Age: 68 y.o. :[id number]:Reyes Carlin is 68 y.o. male Who is more awake and alert. He is appearingcomfortable. He is pulling off his nasal canula. The RN is requestingrestraints.Will order Mitts for restraints.Pt Presented to the ED from [facility] with medical history of Dysphagia ,s/p surgical placement of peg on 11/17/18, severe intellectual disability,Chronic respiratory failure, large Hiatal Hernia, hyperparathyroid unspecified,personal h/ o pulmonary embolus, anxiety disorder, kyphosis and schizophrenia. Ptis nonverb al at baseline and is unable to provide a history.Per long-term transfer record s, at 6 AM, patient was found Hypoxic, with O2SAT of 87 % on O2 NC 87 % on 4 LPM, h eart rated 111 BPM, Blood Pressure of 105/73, respiratoryrate of 30 andaudible wheeze. Nebulizer treatment was given. He was placed on a NRM withimproved O2 SAT to 95 % , his respiratory rate was 30 and he was afebrile. Thenursing home transfer r ecord reporting that the resident removes nasal canulaat times. In the ED pt appe aring lethargic and having mild respiratory distress.CXR showing haziness at the rig ht lung base due to small effusion withatelectasis/infiltrate. No confluen t left lung process is seen. 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 Pupils are equalNeck : Supple, symmetrical, no adenopathy, no carotid bruit and no JVD.Lungs: Clear to auscultation bilaterally. No Wheezing or Rhonchi. No rales.Chest wall: No Acces augusto muscle use.Heart: Regular rate and rhythm, no murmur, or rubAbdomen: Pos itive Peg in place, soft non-tender. Not distended. Bowel soundsnormal. No cortney sExtremities: Extremities normal, atraumatic, No cyanosis. No edema. No clubbingSkin: Warm and dry. No rashes or lesions. Not JaundicedLymph nodes: Cervical, supracla vicular normal.Psych: Not anxious or agitated.Neurologic: EOMs intact. No fac ial asymmetry. No aphasia or slurred speech.Generalized weakness, non ambulat ory at baseline,, Alert and Awake.Intake and Output:Current Shift: 01/15 701 - 1899In: -Out: 200 [Urine:200]Last three shifts: 01/13 1901 - 01/15 700In: 1280 Out: 1225 [Urine:1225]Lab/Data Reviewed:Recent Days:Recent Labs 01/14/1906WBC 5.7 4.4* 5.2HGB 11.6* 10.4* 11.0*HCT 35.3* 31.1* 33.9*PLT 282 239 262Recent Labs 01/14/1906NA 134* 137 134 *K 4.2 4.1 3.6CL 94* 99 95*CO2 32 36* 35*GLU 77 112* 93BUN 9 8 6*CREA 0.37* 0.38* 0.3 5*CA 8.9 8.4* 8.7MG 2.0 1.9 1.8PHOS 2.9 3.4 2.5ALB 2.0* 1.7* 1.9*No results for inpu t(s): PH, PCO2, PO2, HCO3, FIO2 in the last 72 hours.CULTURE, BLOOD [[id number]] (Order [id number])MicrobiologyDate: 01/10/2019 Department: [facility] 3t Med Surg Released By/ Authorizing: Wes Romero MD (auto-released)Specimen Information: Blo od Component Value Flag Ref Range Units StatusSpecial Requests: Preliminary NO SPECIAL REQUESTSCulture result: NO GROWTH 3 DAYSCULTURE, BLOOD [[id number]] (Order [id number])MicrobiologyDate: 01/10/2019 Department: [facility] Med Surg Released By/ Authorizing: Wes Romero MD (auto-released)Specimen Information: Blo od Component Value Flag Ref Range Units StatusSpecial Requests: Preliminary NO SPECIAL REQUESTSCulture result: NO GROWTH 3 DAYSCULTURE, URINE [[id number]] (Order [id number])MicrobiologyDate: 01/10/2019 Department: [facility] Med Surg Released By/ Authorizing: Wes Romero MD (auto-released)Specimen Information: Neo an catch; Urine Component Value Flag Ref Range Units StatusSpecial Requests: FinalNO SPECIAL REQUESTSCulture result: NO GROWTH 1 DAY FinalXr Chest Sngl VRe sult Date: 12/25/2018Portable chest x-ray. PRIOR EXAM: X-ray 12/18/2018 HISTORY: Pneu monia FINDINGS:The heart is normal in size. The mediastinum and pulmonary vessels ar eunremarkable. There is a small right pleural effusion.. A tube projected overthe left upper quadrant of the abdomen..IMPRESSION: Small right pleural effusion.Ct Chest Wo ContResult Date: 01/10/2019CT CHEST WO CONT Clinical data: evaluation of pneumonia r t lung. Priors:12/18/2018 Technique: CT scan of the chest was performed from the thoraci c inletto below the diaphragm without administration of intravenous contrast. Theacquisition data was reviewed in the axial, sagittal and coronal plane.Utiliz ing silver holloware assembler algorithm the examination was performed to optimizeimaging quality by utilizing the lowest possible radiation dose. Findings: Thereis no evidence of p athological lymphadenopathy within the mediastinum, bilateralhilar and bilatera l axillary location. There is a 1.8 cm nodule along the rightwall of the trache a at the level of the thoracic inlet (best seen on image 13ofseries 2) not seen on the prior study. This may be due to a mucous plug. Noadditional endotracheal or endo bronchial lesion is noted.Normal heart size.Coronary artery calcifications note d. Atherosclerotic thoracic aorta withoutaneurysmal dilatation. Evaluation lung windows demonstrates patchy right lowerlobe lung infiltrate. There is asso ciated small right pleural effusion similarto prior. There is also small left pleural effusion with underlying passiveatelectasis slightly decreased from the prior study. No new lung pathology isobserved. Included upper abdominal organs: No significant p athology is observedwithin the visualized upper abdominal organs.IMPRESSION: Small bilateral pleural effusion. Right effusion is similar toprior study. Left effusion slightly decreased in size. Patchy right lungopacities which may be due to pneumo freddy similar to previous examinations. 1.8cm nodule along the right lateral wall of t he trachea at the level of thethoracic inlet not observed on the prior study and can be due to a mucous plug.Ct Chest Wo ContResult Date: 12/18/2018Referring Physi chaya: KRYSTIAN MONAE Patient Name: EVELIO CARLIN THIS IS AFINAL REPORT FROM [facility] DATE OF SERVICE: 2018-12-18 01:22:40 IMAGES:555 EXAM: CT CHEST WO CO NTRAST HISTORY: .. Right lower lobe atelectasis..TECHNIQUE: Helical axial im aging from the thoracic inlet through the adrenalglands without contrast. Sagittal and coronal reconstructions were obtained.COMPARISON: CT chest without co ntrast of 12/13/2018. FINDINGS: .. Evaluationremains limited due to lack of IV contrast and patient positioning. The imagedthyroid gland remains atrophic. Th e aorta remains normal in caliber.Atherosclerotic calcifications a re again seen in the aorta. There is againcardiomediastinal shift towards the right. The heart remains normal in size andno pericardial effusion is noted. No obvious lymphadenopathy seen on thisunenhanced scan. No pneumothorax is noted. Since the prior exam there is beenincrease in bilateral pleural effusi ons with associated consolidations. Acalcified granuloma is again seen in th e right lower lobe. The imaged upperabdomen does not demonstrate any gross acute maggy nges. Osteopenia is again noted.Degenerative changes again seen in the imaged spine. Old healed right posteriorlower rib fractures are again seen.IMPRESSION: .. Limited s tudy demonstrating increase in bilateral pleuraleffusions with associated consoli dations with persistent cardiomediastinal shifttowards the right. Stable findings as noted above.. One or more of the followingdose reduction techniques were used: automated exposure control, adjustment ofthe mA and/or kV according to patient size, use of iterative reconstructivetechnique. THIS DOCUMENT H BEEN ELECTRONICALLY SIGNED Kamran Gillette MD 12/18/2018 04:49 GINA Verde Please call [facility] [employer] Consultant [phone] with questions. This report was electronically signed by: Tala MENDEZ 12/18/2018 04: 50 AMCta Up Ext Lt W ContResult Date: 12/18/2018History: Arm claudication. FINDI NGS: CTA of the left upper extremity wasperformed helically from level of the shoulder through the fingers after theintravenous administration of 119 cc of Isovue. Sagittal, coronal, and 3-Dreconstructed images obtained on an RealtimeBoard workstation are submitted. Noprior studies are available for comparison. Th e left subclavian artery is widelypatent. It is continuous with a widely patent left axillary artery. The axillaryartery is continuous with a widely patent left bra chial artery. The brachialartery bifurcates into a radial and ulnar artery just belo w the elbow. From thispoint distally streak artifact from patient positioning limits evaluation.However, the ulnar artery appears widely patent to the wrist. The radial a rteryis less well opacified but does appear patent to the wrist as well. Anintraosse ous artery also appears patent although it is poorly visualized aswell. The digital ar teries are not visualized on this study. There arebilateralpleural effusions note d both of which are moderate to large. Theeffusion on the left one is larger th an the right. Bibasilar atelectatic changethroughout much of the lower lobes is seen. There is a significant shift ofmediastinal structures to the right. T he liver is decreased in attenuationcompatible with fatty infiltr ation. The spleen is unremarkable. The adrenalglands are normal in appearance. The pancreas is grossly normal as is thegallbladder. A gastrostomy tube is no mikel in situ. The kidneys are unremarkable.There is a midline abdomina l wall hernia containing large and small bowel aswell as mesentery without eviden ce of obstruction. There is some presacralthickening and possibly some fr ee fluid noted. The patient is status post ORIFof the left hip with metallic hardwa re in situ.IMPRESSION: Patent left upper extremity arterial vessels although eval uationdistally is limited. Bilateral pleural effusions and bibasilar atelectasis.Shif t of mediastinal structures to the right.Ct Abd Pelv Wo ContResult Date: 12/21/2018His tory: ? Maturity of g-tube tract Technique: CT of the abdomen and pelvis wasperforme d from the dome of the diaphragm to the pubic symphysis without oral orintravenous con trast with dose lowering techniques. Sagittal and coronalreconstructions were performe d. Evaluation of solid abdominal viscera iscompromised by by the lack of intraven ous contrast. Evaluation of the bowelloops is compromised lack of oral contrast. All C T scans at this facility areperformed using dose optimization technique as appropria te to a performed exam,to include automated exposure control, adjustment of the mA a nd/or kV accordingto patient size (including appropriate matching first site-specific examinations), or use of iterative reconstruction technique. Comparison: CT scanof the chest performed 12/19/18 Findings: There is a small right pleural effusionw ith adjacent atelectasis. There is minimal left pleural fluid with adjacentatelecta sis. There is a pigtail catheter again identified on the left. The exactlocatio n of this catheter is difficult to ascertain benefits above the diaphragmto below the diaphragm. On today's study the tip appears to be located below thediaphragm. There is a small right pleural effusion with adjacent atelectasis.There is a G-tube i dentified in the stomach. The liver, gallbladder, spleen,pancreas, kidneys an d adrenal glands are unremarkable. No abdominal, pelvic oringuinal lymphadenop athy is identified. No free intraperitoneal fluid is noted.There is a ventral wall h ernia containing loops of what appear to be small bowelhowever are difficult to foll ow. There is mild perirectal stranding andpresacral edema correlate clinically. No dilated loops of bowel are identified.There is mild diverticulosis of the colon. The prostate, bladder and seminalvesicles appear unremarkable. The re are streak artifact obscuring portions ofthe pelvis due to a left hip ORIF. The re is subcutaneous gas identified alongthe right lower anterior pelvic wall.IMPRESS ION: There is a G-tube identified in the stomach. There is a tailcatheter identif ied on the left. The tip appears to be located below thediaphragm although is d ifficult to assess on CT. There is a small residualamount of pleural fluid as well as atelectasis along the left diaphragm. Thereis perirectal stranding and presacr al edema.Ct Thoracentesis Insrt Chest TubeResult Date: 12/19/2018History: Pleura l effusion. PROCEDURE: After being informed of the risks,benefits, and potential alt ernatives procedure informed consent was obtained.The patient was placed on the t able in the owata-[id number]-myll decubitus position.CT scanning was performed locat ion was chosen over the left flank. However, dueto the significant amount of patient motion and breathing motion was difficultto accurately assess a location for percuta neous paracentesis. Therefore, thiswas performed manually. After the chosen reg ion was prepped and draped in thenormal sterile fashion using maximum sterile ba rrier technique a lidocaineneedle was placed in the skin. This appeared to be in good position. Lidocainewas then used to anesthetize the skin and subcutaneous ti ssues in this location.Attempts were made to pass an 8 Congolese pigtail catheter throug h this location.However, patient continuous motion was significant as well as excess ivebreathing during the procedure. The catheter was placed at the same interspa ceas well as marked on the prior CT sequence however, due to the excessive patientmot ion the catheter was far more inferior within the chest that on the priorsequences. Th e catheter appeared to enter the hemiabdomen on the left from theleft chest. The cath eter was then pulled back to position where clear yellowfluid was aspirated. It was then sewn in position However, It appeared tomigrate forward and on the CT scanning appeared to again transgress thediaphragm. It was therefore pulled back to a point where only a clear fluid wasaspirated and respiratory variation was noted within t he tube. It was then sewnin position using 2-0 silk sutures. FINDINGS: Initial CT s debora revealed amoderate left pleural effusion. Attempts to nancy an adequate l ocation forpercutaneous thoracentesis were quite limited due to excessive patient m otionand breathing throughout the procedure. A location that appear to be a safelocat ion was marked. However, when the catheter was placed in this sameinterspace as wel l as marked the catheter appeared to be far more inferiorwithin the hemithorax than that seen previously. It appeared to enter the lefthemithorax inferiorly and transg ress the diaphragm with no evidence pathologicsequela. Therefore, it was pul led back into the pleural space for adequatedrainage. 130 cc of lightly bloo d-tinged fluid was aspirated. The catheter wasattached to a Pleur-evac and wall suc tion.IMPRESSION: Left-sided thoracentesis described above.Xr Chest PortResult Date : 01/10/2019XR CHEST PORT Clinical data: Sepsis Priors: 12/29/2018. Findings: Exam ination iscompromised due to limited inspiration and patient rotation. Heart size isunchanged. Haziness seen at the right lung base can be due to small effu sionwith atelectasis/infiltrate. No confluent left lung process is seen. No evidence of CHF.IMPRESSION: Limited study. Suspect right lung base process which ma y be due tosmall effusion with atelectasis/infiltrate.Xr Chest PortResu lt Date: 12/29/2018History: leukocytosis Technique: Portable chest x-ray 9 11:01 AMComparison: 12/25/2018. FINDINGS: There is a right lower lobe infiltrate o ratelectasis which is increased since prior exam. There is poor inspiration.There is a small left pleural effusion. The exam is rotated. Evaluation of thecardiac silhou ette is limited by projection. The visualized osseous structuresappear unremarkable.IM PRESSION: There is a right lower lobe infiltrate or atelectasis which isincrea sed since prior exam.Xr Chest PortResult Date: 12/18/2018Portable chest x-ray. PRIO R EXAM: 12/12/2018 and 11/25/2018 HISTORY: Pneumonia andpleural effusions FINDINGS: The heart is normal in size. The mediastinum andpulmonary vessels are unremarkable. T here is haziness within the lung basesbilaterally... The bony structures are intact.IMPRESSION: Haziness within the lung bases bilaterally that could repres entsmall pleural effusions and/or subsegmental atelectasis. Similar findin gs wereseen on prior exams.Duplex Upper Ext Venous LeftResult Date: 12/26/2018DUPLEX UPPER EXT VENOUS LEFT Clinical Data: Arm swelling, DVT suspectedFindings: The vis ualized segments of the left upper extremity venous circulationfrom the level of the subclavian vein to the brachial vein is compressible andshows normal phasic flow without an intraluminal thrombus. In addition, theinternal jugular vein and t he basilic vein is also patent. Extremely limitedexam because the patient was unab le to cooperate and this was done in a portablefashion.IMPRESSION: No evidence of deep vein thrombosis within the visualized left upperextremity venous circulation. Limited study.Duplex Lower Ext Venous BilatResult Date: 01/11/2019HISTORY: swel ling to lower extremities TECHNIQUE: Bilateral lower extremityvenous Doppler ultrasound Using real time and color-flow Doppler as well asspectral analysis and ultrasound examination was performed of the lowerextremities bilaterally. FINDINGS: On the right side the common femoral vein,superficial femoral vein along its entire course, as well as popliteal vein allappeared widely patent, were easily c ompressible, showed normal spontaneousflow. The calf veins were not visualized due t o body habitus. On the left sidethe common femoral vein, superficial femoral vein a long its entire course, aswell as popliteal vein all appeared widely patent, were ea sily compressible, andshowed normal spontaneous flow. The calf veins were no t visualized due to bodyhabitus.IMPRESSION: Normal bilateral lower extremity venous Doppler ultrasound with noevidence of deep vein thrombosis.Medications reviewedCurr ent Facility-Administered MedicationsMedication Dose Route Frequen cy multivit-folic acid-herbal 275 (WELLESSE PLUS) oral liquid 30 mL 30 mL Per GTube DAILY acetylcysteine (MUCOMYST) 100 mg/mL (10 %) nebulizer solution 600 mg 6 mLNe bulization BID budesonide (PULMICORT) 500 mcg/2 ml nebulizer suspension 500 mcg N ebulizationBID RT sodium chloride (NS) flush 5-10 mL 5-10 mL IntraVENous PRN choles tyramine-aspartame (QUESTRAN LIGHT) packet 4 g 4 g Oral TID WITH MEALS cinacalcet ( SENSIPAR) tablet 60 mg 60 mg Oral DAILY lamoTRIgine (LaMICtal) tablet 50 mg 50 mg Per G Tube BID pantoprazole (PROTONIX) granules for oral suspension 40 mg 40 m g Per G TubeACB valproic acid (as sodium salt) (DEPAKENE) 250 mg/5 mL (5 mL) oral solution 750mg 750 mg Oral BID ALPRAZolam (XANAX) tablet 0.5 mg 0.5 mg Per G Tube QHS acetaminophen (TYLENOL) solution 650 mg 650 mg Oral Q4H PRN heparin (porcine) injection 5,000 Units 5,000 Units SubCUTAneous Q12H influenza vaccine 201 9-20 (65 yrs+)(PF) (FLUZONE HIGH-DOSE) injection 0.5 mL0.5 mL IntraMUSCular YUAN OR TO DISCHARGE albuterol-ipratropium (DUO-NEB) 2.5 MG-0.5 MG/3 ML 3 mL Nebul ization Q6H RT piperacillin-tazobactam (ZOSYN) 3.375 g in 0.9% sodium chloride (MBP/ADV) 100mL MBP 3.375 g IntraVENous J1HGlmpuhqyub/Plan:Hospital Problems Da te Reviewed: 01/14/2019 Codes Class Noted POA Acute respiratory failure with hypoxia (HCC) ICD-10-CM: J96.01ICD-9-CM: 518.81 01/10/2019 Unknown Pneumonia invo lving right lung ICD-10-CM: J18.9ICD-9-CM: 486 01/10/2019 Unknown Hyponatremia ICD- 10-CM: E87.1ICD-9-CM: 276.1 01/10/2019 YesAssessment: Acute Respiratory Failur e with Hypercapnia and HypoxiaPneumonia likely Aspiration RLLAtelectasisDysphagi a s/p surgical placed pegMentally challengedSeizureHyperparathyroidLeft an kle and pedal edema- ResolvedPlan:Continuous O2 NC/PRN Bipap per pulmonaryIV zosyn pe r IDNebulizersFollow culturesRestraints with mittsContinue with bolus TF for Bao Frankel MDOctaubrey 2018Time: 11:49 PM Name Value Range Interpretation Code Description Data Harriett stone(s) Supporting Document(s ) ID Date Data Source [id number] 01/15/2019 06:57:06 AM EDT [facility] Bedside and Verbal shift change report g iven to A Abilio RN (oncoming nurse)by Gaston Starr RN (offgoing nurse). Report include d the following information SBAR,Kardex and MAR. Name Value Range Interpretation Code Description Data Harriett rce(s) Supporting Document(s ) ID Date Data Source [id number] 01/15/2019 07:37:01 AM EDT [facility] Name Value Range Interpretation Description Data Sup porting Code Source(s) Document(s ) Sodium 134 136-145 Below low normal [facility] [Moles/volume] mmol/L [facility] in Serum or Hospital Plasma Potassium 4.2 3.5-5.1 [facility] [Moles/volume] mmol/L [facility] in Serum or Hospital Plasma Chloride 94 98-107 Below low normal [facility] [Moles/volume] mmol/L [facility] in Serum or Hospital Plasma Carbon 32 21-32 [facility] dioxide, total mmol/L [facility] [Moles/volume] Hospital in Serum or Plasma Anion gap in 12 10-20 [facility] Serum or mmol/L [facility] Plasma Hospital Glucose 77 mg/dL 74-106 [facility] [Mass/volume] [facility] in Serum or Hospital Plasma Urea nitrogen 9 mg/dL 7-18 [facility] [Mass/volume] [facility] in Serum or Hospital Plasma Creatinine 0.37 0.70-1.3 Below low normal [facility] [Mass/volume] mg/dL 0 [facility] in Serum or Hospital Plasma Glomerular >60 [facility] filtration [facility] rate/1.73 sq M Hospital predicted among blacks [Volume Rate/Area] in Serum or Plasma by Creatinine-bas ed formula (MDRD) Glomerular >60 [facility] filtration [facility] rate/1.73 sq M Hospital predicted among non-blacks [Volume Rate/Area] in Serum or Plasma by Creatinine-bas ed formula (MDRD) Calcium 8.9 8.5-10.1 [facility] [Mass/volume] mg/dL [facility] in Serum or Hospital Plasma Phosphate 2.9 2.5-4.9 [facility] [Mass/volume] mg/dL [facility] in Serum or Hospital Plasma Albumin 2.0 g/dL 3.5-4.7 Below low normal [facility] [Mass/volume] [facility] in Serum or Hospital Plasma by Bromocresol purple (BCP) dye binding method ID Date Data Source [id number] 01/15/2019 07:37:01 AM EDT [facility] Name Value Range Interpretation Description Data Sup porting Code Source(s) Document(s ) Magnesium 2.0 mg/dL 1.6-2.6 [facility] [Mass/volume] [facility] in Serum or Hospital Plasma ID Date Data Source [id number] 01/15/2019 07:20:59 AM EDT [facility] Name Value Range Interpretation Description Data Sup porting Code Source(s) Document(s ) Leukocytes 5.7 K/uL 4.8-10.6 [facility] - [#/volume] in Good Blood by [facility] Automated count Hospital Erythrocytes 3.48 4.70-6.0 Below low normal [facility] - [#/volume] in M/uL 0 [facility] Blood by [facility] Autom[facility] count Hospital Hemoglobin 11.6 14.0-18. Below low normal [facility] - [Mass/volume] in g/dL 0 [facility] Blood [facility] Hematocrit 35.3 % 42.0-52. Below low normal [facility] - [Volume 0 Good Fraction] of [facility] Blood by Hospital Automated count Erythrocyte mean 101.4 FL 81.0-94. Above high normal [facility] - corpuscular 0 Good volume [Entitic [facility] volume] by Hospital Automated count Erythrocyte mean 33.3 PG 27.0-35. [facility] - corpuscular 0 Good hemoglobin [facility] [Entitic mass] [facility] by Automated count Erythrocyte mean 32.9 30.7-37. [facility] - corpuscular g/dL 3 Good hemoglobin [facility] Hospital [Mass/volume] by Automated count Erythrocyte 16.8 % 11.5-14. Above high normal [facility] - distribution 0 Good width [Ratio] by [facility] Automated count Hospital Platelets 282 K/uL 130-400 [facility] - [#/volume] in Good Blood by [facility] count [facility] Platelet mean 8.7 FL 9.2-11.8 Below low normal [facility] - volume [Entitic Good volume] in Blood [facility] by Automated Hospital count Segmented 63 % 48.0-72. [facility] - neutrophils/100 0 Good leukocytes in [facility] Blood [facility] Lymphocytes/100 24 % 18.0-40. [facility] - leukocytes in 0 [facility] Monocytes/100 9 % 2.0-12.0 [facility] - leukocytes in [facility] Eosinophils/100 4 % 0.0-7.0 [facility] - leukocytes in [facility] Basophils/100 0 % 0.0-3.0 [facility] - leukocytes in [facility] Segmented 3.5 K/UL 1.5-6.6 [facility] - neutrophils Good [#/volume] in [facility] Lymphocytes 1.3 K/UL 1.5-3.5 Below low normal [facility] - [#/volume] in [facility] Monocytes 0.5 K/UL 0.0-1.0 [facility] - [#/volume] in [facility] Eosinophils 0.3 K/UL 0.0-0.7 [facility] - [#/volume] in [facility] Basophils 0.0 K/UL 0.0-0.1 [facility] - [#/volume] in [facility] Differential [facility] - cell count [facility] Immature 1 % 0.0-2.0 [facility] - granulocytes/100 [facility] leukocytes in [facility] Automated count ID Date Data Source [id number] 01/15/2019 02:38:39 AM EDT [facility] Progressing slowly Name Value Range Interpretation Code Description Data [facility]) Supporting Document(s ) ID Date Data Source [id number] 01/14/2019 07:55:05 PM EDT [facility] Bedside and Verbal shift change report carol Starr RN (oncoming nurse) Mely KNOX RN (offgoing nurse). Report in cluded the following informationSBAR, Kardex, MAR and Recent Results. Name Value Range Interpretation Code Description Data [facility] Supporting Document(s ) ID Date Data Source [id number] 01/14/2019 05:54:05 PM EDT [facility] ID Progress Note01/14/2019Subjective:Siri ent with mental retardation,recurrent aspiration pneumonia.Non verbal,unable t o provide history.AfebrileCultures negativeNo new events..Objective:Vitals:Patient Vit als for the past 24 hrs: BP Temp Pulse Resp SpO2 Gmjapo84/02/19 1550 101/51 96.9 F (36.1 C) 83 18 91 % -01/14/19 1211 129/63 97 F (36.1 C) 75 20 94 % -01/14/19 0818 1 23/64 98.2 F (36.8 C) 70 20 99 % -01/14/19 0559 - - - - - 56.4 kg (124 lb 4.8 oz) 0357 92/60 97.7 F (36.5 C) 72 18 98 % -01/14/19 0118 - - - - 99 % -01/13/19 2349 97/57 98.7 F (37.1 C) 82 18 97 % -01/13/19 1950 - - - - 95 % -01/13/19 19 32 128/85 98.1 F (36.7 C) 72 18 96 % -Tmax: Temp (24hrs), Av.8 F (36.6 C), Mi n:96.9 F (36.1 C), Max:98.7 F(37.1 C)Physical Exam:General: Awake non verb al cooperative, no distressNeck: Supple, symmetrical, trachea midline, no adenopa thLungs: Bilateral breath sounds with basal crackles.Heart: Regular rate and rhythm , S1, S2 normalAbdomen: Soft, non-tender. Bowel sounds normal. No masses, No orga nomegaly.+feeding tubeBack: No CVA tenderness.Extremities: Chronic lymphede ma.Pulses: 2+ and symmetric all extremities.Skin: Skin color, texture, t urgor normal. No rashes or lesionsCurrent Facility-Administered MedicationsMedicat ion Dose Route Frequency multivit-folic acid-herbal 275 (WELLESSE PLUS) oral liq uid 30 mL 30 mL Per GTube DAILY potassium, sodium phosphates (NEUTRA-PHOS) packet 1 Packet 1 Packet Per GTube QID acetylcysteine (MUCOMYST) 100 mg/mL (10 %) nebulizer solution 600 mg 6 mLNebulization BID budesonide (PULMICOR T) 500 mcg/2 ml nebulizer suspension 500 mcg NebulizationBID RT sodium chloride (NS) flush 5-10 mL 5-10 mL IntraVENous PRN cholestyramine-aspartame (QUESTRAN LIGHT ) packet 4 g 4 g Oral TID WITH MEALS cinacalcet (SENSIPAR) tablet 60 mg 60 m g Oral DAILY lamoTRIgine (LaMICtal) tablet 50 mg 50 mg Per G Tube BID pantoprazol e (PROTONIX) granules for oral suspension 40 mg 40 mg Per G TubeACB valproic acid ( as sodium salt) (DEPAKENE) 250 mg/5 mL (5 mL) oral solution 750mg 750 mg Oral BID AL PRAZolam (XANAX) tablet 0.5 mg 0.5 mg Per G Tube QHS acetaminophen (TYLENOL) soluti on 650 mg 650 mg Oral Q4H PRN heparin (porcine) injection 5,000 Units 5,000 U nits SubCUTAneous Q12H influenza vaccine (65 yrs+)(PF) (FLUZONE HIGH-DOSE ) injection 0.5 mL0.5 mL IntraMUSCular PRIOR TO DISCHARGE albuterol-ipratropium (DUO -NEB) 2.5 MG-0.5 MG/3 ML 3 mL Nebulization Q6H RT piperacillin-tazobactam (ZOSYN) 3.375 g in 0.9% sodium chloride (MBP/ADV) 100mL MBP 3.375 g IntraVENous O5LZapd:R e[facility] 01/14/1904WBC 4.4* 5.2 4.9HGB 10.4* 11 .0* 10.8*PLT 239 262 246BUN 8 6* 10CREA 0.38* 0.35* 0.40*Cultures:Lab ResultsComponent Value Date/Time Culture result: NO GROWTH 1 DAY 01/10/2019 08:58 AM Culture result: NO GROWTH 3 DAYS 01/10/2019 07:55 AM Culture result: NO GROWTH 3 DAYS 01/10/2019 07:4 0 AMRadiology:No results found.Assessment: Aspiration pneumonia. Acute hypoxic res piratory failure. Dysphagia Pleural effusion. . COPD Plan:1. Continue IV z osyn.Natasha Duldey MDMclaren Flintober 20185:52 PM Name Value Range Interpretation Code Description Data Harriett rce(s) Supporting Document(s ) ID Date Data Source [id number] 01/14/2019 03:23:24 PM EDT [facility] Progress NoteMID-[facility] ,[facility].Krystian Monae MD., F.CGualbertoCGualbertoP.Stella Hamilton MD., F.CGualbertoCGualbertoP. [address] [place] [address] [place], [place] [id number] [phone]: Evelio Carlin Sex: male DOA: 01/10/2019Da te of : 1950 Age: 68 y.o. LOS: LOS: 4 daysSubjective:Mr. Gayla beltran is a 68 y.o. year old male who is being seen for ACUTEHYPERCAPNIC AND HYPOXIC RE SPIRATORY FAILURE .ASP. PNEUMONIA , COPD , WEAKNESS . PATENT IS BED RIDDENObjecti ve:Vital Signs:Patient Vitals for the past 24 hrs: BP Temp Pulse Resp SpO2 Zuszwa6301/14 1211 129/63 97 F (36.1 C) 75 20 94 % -01/14/19 0818 123/64 98.2 F (36.8 C) 70 20 99 % -01/14/19 0559 - - - - - 56.4 kg (124 lb 4.8 oz)01/14/19 0357 92/60 97.7 F (36.5 C) 72 18 98 % -01/14/19 0118 - - - - 99 % -01/13/19 2349 97/57 98.7 F (37. 1 C) 82 18 97 % -01/13/19 1950 - - - - 95 % -01/13/19 1932 128/85 98.1 F (36.7 C) 72 18 96 % -01/13/19 1510 107/64 98.3 F (36.8 C) 72 - 98 % -Pulse OX:SpO2 Readi ngs from Last 6 Encounters:01/14/19 94%12/30/18 96%11/27/18 91%09/26/15 96%@ LASTSAO2(6)@Physical Exam:ON NASAL CANNULA O2 , RR = 24 / MT . UNRESPONSIVE . G eneral: Alert, cooperative, NO distress, appears stated age. Head: N ormocephalic, without obvious abnormality, atraumatic. Eyes: Conjuncti vae/corneas clear. PERRL, EOMs intact. Nose: Nares normal. No drainage or sinus tenderness Throat: Lips, mucosa, and tongue normal Nec k: Supple, symmetrical, trachea midline, no adenopathy,thyroid: no enlargem ent/tenderness/nodules, no carotid bruit and no JVD. Lungs: WHEEZING ARE L ESS , RALES DECREASED R L A ND L LL , AIREXCHANGE IS BETTER to auscultation bilaterally. Chest Wall: No tenderness or deformity. Heart: Regular ra te and rhythm, S1, S2 normal, no murmur, click,rub or NO gallop. Abdomen: Soft, non-tender. Bowel sounds normal. No masses, No organomegaly. Extremities: Extremities normal, atraumatic, no cyanosis or edema. Pulses: 4+ bilateral ly. Skin: Skin color, texture, turgor normal. No rashes or lesions. Ne urologic: OPENS EYES BUT NO COMMUNICATION .CNII-XII intact. No focal motor or sensory deficit.Intake and Output:Last three shifts: 01/12 1901 - 01/14 0700In: -Out: 2150 [Urine:2150]Lab Results:Recent Results (from the past 24 hour(s))RENAL FUNCTION PANEL Collection Time: 01/14/19 6:17 AMResult Value Ref Range Sodium 137 136 - 145 mmol/L Potassium 4.1 3.5 - 5.1 mmol/L Chloride 99 98 - 10 7 mmol/L CO2 36 (H) 21 - 32 mmol/L Anion gap 5 (L) 10 - 20 mmol/L Glucose 112 (H) 74 - 106 mg/dL BUN 8 7 - 18 mg/dL Creatinine 0.38 (L) 0.70 - 1.30 mg/dL GFR est AA >6 0 >60 ml/min/1.73m2 GFR est non-AA >60 >60 ml/min/1.73m2 Calcium 8.4 (L) 8.5 - 10.1 mg/dL Phosphorus 3.4 2.5 - 4.9 mg/dL Albumin 1.7 (L) 3.5 - 4.7 g/dLMAGNESIUM Collecti on Time: 01/14/19 6:17 AMResult Value Ref Range Magnesium 1.9 1.6 - 2.6 mg/dLCBC W ITH AUTOMATED DIFF Collection Time: 01/14/19 6:17 AMResult Value Ref Range WBC 4.4 (L ) 4.8 - 10.6 K/uL RBC 3.02 (L) 4.70 - 6.00 M/uL HGB 10.4 (L) 14.0 - 18.0 g/dL HCT 3 1.1 (L) 42.0 - 52.0 % MCV 103.0 (H) 81.0 - 94.0 FL MCH 34.4 27.0 - 35.0 PG MCHC 33. 4 30.7 - 37.3 g/dL RDW 17.0 (H) 11.5 - 14.0 % PLATELET 239 130 - 400 K/uL MPV 8.7 (L) 9.2 - 11.8 FL NEUTROPHILS 59 48.0 - 72.0 % LYMPHOCYTES 24 18.0 - 40.0 % MONOCYTES 1 1 2.0 - 12.0 % EOSINOPHILS 6 0.0 - 7.0 % BASOPHILS 0 0.0 - 3.0 % ABS. NEUTROPHILS 2.6 1.5 - 6.6 K/UL ABS. LYMPHOCYTES 1.0 (L) 1.5 - 3.5 K/UL ABS. MONOCYTES 0.5 0.0 - 1.0 K/UL ABS. EOSINOPHILS 0.2 0.0 - 0.7 K/UL ABS. BASOPHILS 0.0 0.0 - 0.1 K/UL DF AUT OMATED IMMATURE GRANULOCYTES 1 0.0 - 2.0 %ABG:No results for input(s): PH, PCO2, PO2, HCO3, FIO2 in the last 72 hours.Recent Glucose Results:Lab ResultsComponent Seema ue Date/Time GLU 112 (H) 01/14/2019 06:17 AM@LABAPCYTOINTERPRETATION@[facility] Results Procedure Component Value Units Date/Time CULTURE, BLOOD [[id number]] Col lected: 01/10/19 5168 Order Status: Completed Specimen: Blood Updated: 05/03 0846 Special Requests: NO SPECIAL REQUESTS Culture result: NO GROWTH 3 DA YS CULTURE, BLOOD [[id number]] Collected: 01/10/19 1957 Order Status: Completed S pecimen: Blood Updated: 01/13/19 0813 Special Requests: NO SPECIAL REQUESTS C ulture result: NO GROWTH 3 DAYS CULTURE, URINE [[id number]] Collected: 01/10/19 0 858 Order Status: Completed Specimen: Urine from Clean catch Updated: Special Requests: NO SPECIAL REQUESTS Culture result: NO GROWTH 1 DAY CULTURE, BLOOD [[id number]] Collected: 01/10/19 0800 Order Status: Canceled Specimen: Blood Images:@[email or web address]@Xr Chest Sngl VResult Date: 12/25/2018Portable chest x-ray. YUAN OR EXAM: X-ray 12/18/2018 HISTORY: Pneumonia FINDINGS:The heart is normal in size. Th e mediastinum and pulmonary vessels areunremarkable. There is a small right pleural effusion.. A tube projected overthe left upper quadrant of the abdomen..IMPR ESSION: Small right pleural effusion.Ct Chest Wo ContResult Date: 01/10/2019CT CHEST WO CONT Clinical data: evaluation of pneumonia rt lung. Priors:12/18/2018 Technique: CT s can of the chest was performed from the thoracic inletto below the diaphragm wit hout administration of intravenous contrast. Theacquisition data was reviewed in the axial, sagittal and coronal plane.Utilizing silver holloware assembler algorithm the examination w as performed to optimizeimaging quality by utilizing the lowest possible radiation dose. Findings: Thereis no evidence of pathological lymphadenopathy within the mediastinum, bilateralhilar and bilateral axillary location. There is a 1.8 cm no dule along the rightwall of the trachea at the level of the thoracic inlet (best se en on image 13ofseries 2) not seen on the prior study. This may be due to a mucou s plug. Noadditional endotracheal or endobronchial lesion is noted.Normal hea rt size.Coronary artery calcifications noted. Atherosclerotic thoracic aorta withouta neurysmal dilatation. Evaluation lung windows demonstrates patchy right lowerlobe lung infiltrate. There is associated small right pleural effusion similarto prior. There is also small left pleural effusion with underlying passiveatelectasis slightly d ecreased from the prior study. No new lung pathology isobserved. Included upper abd ominal organs: No significant pathology is observedwithin the visualized upper abdo wanda organs.IMPRESSION: Small bilateral pleural effusion. Right effusion is sim ilar toprior study. Left effusion slightly decreased in size. Patchy right lungopa cities which may be due to pneumonia similar to previous examinations. 1.8cm nodule along the right lateral wall of the trachea at the level of thethoracic inlet not ob served on the prior study and can be due to a mucous plug.Ct Chest Wo ContResult Date: 12/18/2018Referring Physician: KRSYTIAN MONAE Patient Name: EVELIO CARLIN THIS IS AFINAL REPORT FROM [facility] DATE OF SERVICE: 2018-12-18 01:22:40 IMAGES:555 EXAM: CT CHEST WO CONTRAST HISTORY: .. Right lower lobe atelectasis..TECHNIQUE: Helic al axial imaging from the thoracic inlet through the adrenalglands without contra st. Sagittal and coronal reconstructions were obtained.COMPARISON: CT chest without co ntrast of 12/13/2018. FINDINGS: .. Evaluationremains limited due to lack of IV contrast and patient positioning. The imagedthyroid gland remains atrophic. Th e aorta remains normal in caliber.Atherosclerotic calcifications a re again seen in the aorta. There is againcardiomediastinal shift towards the right. The heart remains normal in size andno pericardial effusion is noted. No obvious lymphadenopathy seen on thisunenhanced scan. No pneumothorax is noted. Since the prior exam there is beenincrease in bilateral pleural effusi ons with associated consolidations. Acalcified granuloma is again seen in th e right lower lobe. The imaged upperabdomen does not demonstrate any gross acute maggy nges. Osteopenia is again noted.Degenerative changes again seen in the imaged spine. Old healed right posteriorlower rib fractures are again seen.IMPRESSION: .. Limited s tudy demonstrating increase in bilateral pleuraleffusions with associated consoli dations with persistent cardiomediastinal shifttowards the right. Stable findings as noted above.. One or more of the followingdose reduction techniques were used: automated exposure control, adjustment ofthe mA and/or kV according to patient size, use of iterative reconstructivetechnique. THIS DOCUMENT H BEEN ELECTRONICALLY SIGNED Kamran Gillette MD 12/18/2018 04:49 GINA Verde Please call [facility] [phone] with questions. This report was electronically signed by: Tala MENDEZ 12/18/2018 04: 50 AMCta Up Ext Lt W ContResult Date: 12/18/2018History: Arm claudication. FINDI NGS: CTA of the left upper extremity wasperformed helically from level of the shoulder through the fingers after theintravenous administration of 119 cc of Isovue. Sagittal, coronal, and 3-Dreconstructed images obtained on an RealtimeBoard workstation are submitted. Noprior studies are available for comparison. Th e left subclavian artery is widelypatent. It is continuous with a widely patent left axillary artery. The axillaryartery is continuous with a widely patent left bra chial artery. The brachialartery bifurcates into a radial and ulnar artery just belo w the elbow. From thispoint distally streak artifact from patient positioning limits evaluation.However, the ulnar artery appears widely patent to the wrist. The radial a rteryis less well opacified but does appear patent to the wrist as well. Anintraosse ous artery also appears patent although it is poorly visualized aswell. The digital ar teries are not visualized on this study. There arebilateralpleural effusions note d both of which are moderate to large. Theeffusion on the left one is larger th an the right. Bibasilar atelectatic changethroughout much of the lower lobes is seen. There is a significant shift ofmediastinal structures to the right. T he liver is decreased in attenuationcompatible with fatty infiltr ation. The spleen is unremarkable. The adrenalglands are normal in appearance. The pancreas is grossly normal as is thegallbladder. A gastrostomy tube is no mikel in situ. The kidneys are unremarkable.There is a midline abdomina l wall hernia containing large and small bowel aswell as mesentery without eviden ce of obstruction. There is some presacralthickening and possibly some fr ee fluid noted. The patient is status post ORIFof the left hip with metallic hardwa re in situ.IMPRESSION: Patent left upper extremity arterial vessels although eval uationdistally is limited. Bilateral pleural effusions and bibasilar atelectasis.Shif t of mediastinal structures to the right.Ct Abd Pelv Wo ContResult Date: 12/21/2018His tory: ? Maturity of g-tube tract Technique: CT of the abdomen and pelvis wasperforme d from the dome of the diaphragm to the pubic symphysis without oral orintravenous con trast with dose lowering techniques. Sagittal and coronalreconstructions were performe d. Evaluation of solid abdominal viscera iscompromised by by the lack of intraven ous contrast. Evaluation of the bowelloops is compromised lack of oral contrast. All C T scans at this facility areperformed using dose optimization technique as appropria te to a performed exam,to include automated exposure control, adjustment of the mA a nd/or kV accordingto patient size (including appropriate matching first site-specific examinations), or use of iterative reconstruction technique. Comparison: CT scanof the chest performed 12/19/18 Findings: There is a small right pleural effusionw ith adjacent atelectasis. There is minimal left pleural fluid with adjacentatelecta sis. There is a pigtail catheter again identified on the left. The exactlocatio n of this catheter is difficult to ascertain benefits above the diaphragmto below the diaphragm. On today's study the tip appears to be located below thediaphragm. There is a small right pleural effusion with adjacent atelectasis.There is a G-tube i dentified in the stomach. The liver, gallbladder, spleen,pancreas, kidneys an d adrenal glands are unremarkable. No abdominal, pelvic oringuinal lymphadenop athy is identified. No free intraperitoneal fluid is noted.There is a ventral wall h ernia containing loops of what appear to be small bowelhowever are difficult to foll ow. There is mild perirectal stranding andpresacral edema correlate clinically. No dilated loops of bowel are identified.There is mild diverticulosis of the colon. The prostate, bladder and seminalvesicles appear unremarkable. The re are streak artifact obscuring portions ofthe pelvis due to a left hip ORIF. The re is subcutaneous gas identified alongthe right lower anterior pelvic wall.IMPRESS ION: There is a G-tube identified in the stomach. There is a tailcatheter identif ied on the left. The tip appears to be located below thediaphragm although is d ifficult to assess on CT. There is a small residualamount of pleural fluid as well as atelectasis along the left diaphragm. Thereis perirectal stranding and presacr al edema.Ct Thoracentesis Insrt Chest TubeResult Date: 12/19/2018History: Pleura l effusion. PROCEDURE: After being informed of the risks,benefits, and potential alt ernatives procedure informed consent was obtained.The patient was placed on the t able in the [id number] decubitus position.CT scanning was performed locat ion was chosen over the left flank. However, dueto the significant amount of patient motion and breathing motion was difficultto accurately assess a location for percuta neous paracentesis. Therefore, thiswas performed manually. After the chosen reg ion was prepped and draped in thenormal sterile fashion using maximum sterile ba rrier technique a lidocaineneedle was placed in the skin. This appeared to be in good position. Lidocainewas then used to anesthetize the skin and subcutaneous ti ssues in this location.Attempts were made to pass an 8 Congolese pigtail catheter throug h this location.However, patient continuous motion was significant as well as excess ivebreathing during the procedure. The catheter was placed at the same interspa ceas well as marked on the prior CT sequence however, due to the excessive patientmot ion the catheter was far more inferior within the chest that on the priorsequences. Th e catheter appeared to enter the hemiabdomen on the left from theleft chest. The cath eter was then pulled back to position where clear yellowfluid was aspirated. It was then sewn in position However, It appeared tomigrate forward and on the CT scanning appeared to again transgress thediaphragm. It was therefore pulled back to a point where only a clear fluid wasaspirated and respiratory variation was noted within t he tube. It was then sewnin position using 2-0 silk sutures. FINDINGS: Initial CT s debora revealed amoderate left pleural effusion. Attempts to nancy an adequate l ocation forpercutaneous thoracentesis were quite limited due to excessive patient m otionand breathing throughout the procedure. A location that appear to be a safelocat ion was marked. However, when the catheter was placed in this sameinterspace as wel l as marked the catheter appeared to be far more inferiorwithin the hemithorax than that seen previously. It appeared to enter the lefthemithorax inferiorly and transg ress the diaphragm with no evidence pathologicsequela. Therefore, it was pul led back into the pleural space for adequatedrainage. 130 cc of lightly bloo d-tinged fluid was aspirated. The catheter wasattached to a Pleur-evac and wall suc tion.IMPRESSION: Left-sided thoracentesis described above.Xr Chest PortResult Date : 01/10/2019XR CHEST PORT Clinical data: Sepsis Priors: 12/29/2018. Findings: Exam ination iscompromised due to limited inspiration and patient rotation. Heart size isunchanged. Haziness seen at the right lung base can be due to small effu sionwith atelectasis/infiltrate. No confluent left lung process is seen. No evidence of CHF.IMPRESSION: Limited study. Suspect right lung base process which ma y be due tosmall effusion with atelectasis/infiltrate.Xr Chest PortResu lt Date: 12/29/2018History: leukocytosis Technique: Portable chest x-ray 9 11:01 AMComparison: 12/25/2018. FINDINGS: There is a right lower lobe infiltrate o ratelectasis which is increased since prior exam. There is poor inspiration.There is a small left pleural effusion. The exam is rotated. Evaluation of thecardiac silhou ette is limited by projection. The visualized osseous structuresappear unremarkable.IM PRESSION: There is a right lower lobe infiltrate or atelectasis which isincrea sed since prior exam.Xr Chest PortResult Date: 12/18/2018Portable chest x-ray. PRIO R EXAM: 12/12/2018 and 11/25/2018 HISTORY: Pneumonia andpleural effusions FINDINGS: The heart is normal in size. The mediastinum andpulmonary vessels are unremarkable. T here is haziness within the lung basesbilaterally... The bony structures are intact.IMPRESSION: Haziness within the lung bases bilaterally that could repres entsmall pleural effusions and/or subsegmental atelectasis. Similar findin gs wereseen on prior exams.Duplex Upper Ext Venous LeftResult Date: 12/26/2018DUPLEX UPPER EXT VENOUS LEFT Clinical Data: Arm swelling, DVT suspectedFindings: The vis ualized segments of the left upper extremity venous circulationfrom the level of the subclavian vein to the brachial vein is compressible andshows normal phasic flow without an intraluminal thrombus. In addition, theinternal jugular vein and t he basilic vein is also patent. Extremely limitedexam because the patient was unab le to cooperate and this was done in a portablefashion.IMPRESSION: No evidence of deep vein thrombosis within the visualized left upperextremity venous circulation. Limited study.Duplex Lower Ext Venous BilatResult Date: 01/11/2019HISTORY: agustina bustos to lower extremities TECHNIQUE: Bilateral lower extremityvenous Doppler ultrasound Using real time and color-flow Doppler as well asspectral analysis and ultrasound examination was performed of the lowerextremities bilaterally. FINDINGS: On the right side the common femoral vein,superficial femoral vein along its entire course, as well as popliteal vein allappeared widely patent, were easily c ompressible, showed normal spontaneousflow. The calf veins were not visualized due t o body habitus. On the left sidethe common femoral vein, superficial femoral vein a long its entire course, aswell as popliteal vein all appeared widely patent, were ea sily compressible, andshowed normal spontaneous flow. The calf veins were no t visualized due to bodyhabitus.IMPRESSION: Normal bilateral lower extremity venous Doppler ultrasound with noevidence of deep vein thrombosis.Medications:Current Faci lity-Administered MedicationsMedication Dose Route Frequency multivit-folic acid-her bal 275 (WELLESSE PLUS) oral liquid 30 mL 30 mL Per GTube DAILY potassium, sodium ph osphates (NEUTRA-PHOS) packet 1 Packet 1 Packet Per GTube QID acetylcysteine (MU COMYST) 100 mg/mL (10 %) nebulizer solution 600 mg 6 mLNebulization BID budesonide (PULMICORT) 500 mcg/2 ml nebulizer suspension 500 mcg NebulizationBID RT sodium chloride (NS) flush 5-10 mL 5-10 mL IntraVENous PRN cholestyramine-aspartam e (QUESTRAN LIGHT) packet 4 g 4 g Oral TID WITH MEALS cinacalcet (SENSIPAR) tablet 60 mg 60 mg Oral DAILY lamoTRIgine (LaMICtal) tablet 50 mg 50 mg Per G Tub e BID pantoprazole (PROTONIX) granules for oral suspension 40 mg 40 mg Per G TubeA CB valproic acid (as sodium salt) (DEPAKENE) 250 mg/5 mL (5 mL) oral solution 750mg 750 mg Oral BID ALPRAZolam (XANAX) tablet 0.5 mg 0.5 mg Per G Tube QHS acetamino phen (TYLENOL) solution 650 mg 650 mg Oral Q4H PRN heparin (porcine) injection 5,0 00 Units 5,000 Units SubCUTAneous Q12H influenza vaccine (65 yrs+)(PF) (FLUZONE HIGH-DOSE) injection 0.5 mL0.5 mL IntraMUSCular PRIOR TO DISCHARGE albute rol-ipratropium (DUO-NEB) 2.5 MG-0.5 MG/3 ML 3 mL Nebulization Q6H RT piperacillin-t azobactam (ZOSYN) 3.375 g in 0.9% sodium chloride (MBP/ADV) 100mL MBP 3.375 g In traVENous [id number] Problems: Acute respiratory failure with hypoxia (HCC) ( 01/10/2019) Pneumonia involving right lung (01/10/2019) Hyponatremia (01/10/2019)Ass essment:1. ACUTE HYPERCAPNIC AND HYPOXIC RESPIRATORY FAILURE2. ATELECTASIS R U L 3. PNEUMONIA R L L AND L L L4. AC COPD BETTER5. MENTAL RETARDATION6. R U L NODULE 1.8 CM ? VASCULAR , NEEDS CAT SCAN CHEST WITH CONTRAST7. DYSPHAGIA8. EP ILEPSY 9. METABOLIC ENCEPHALOPATHY IMPROVINGPLAN : AGREE WITH I V ZOSYND UO NEB Q 4 H BIPAP FOR RESPIRATORY . DISTRESS BUDESONIDE 500 MCG VIA MINI NE B Q 1 2 H REPEAT CAT SCAN CHEST WITH I V CONTRAST WHE N PATIENTY IS STABLE FOR R UL NODULE ORDERED FOR AM PROGNOSIS IS GUARDED , SLIGHTLY BETTER MUCOMYST IN DUO NEB VIA MINI NEB Krystian Monae MD F.C.C.P.January 14, 20192:40 PM Name Value Range Interpretation Code Description Data Harriett rce(s) Supporting Document(s ) ID Date Data Source [id number] 01/14/2019 01:22:04 PM EDT [facility] Problem: Falls - Risk ofGoal: *Absence o f FallsDescriptionDocument Samra Fall Risk and appropriate interventions in the jhon wsheet.Outcome: Progressing Towards GoalNote:Fall Risk Interventions:Mobilit y Interventions: Communicate number of staff needed forambulation/transfer, Patient t o call before getting OOBMedication Interventions: Evaluate medications/cons ider consulting pharmacyElimination Interventions: Call light in reachHistor y of Falls Interventions: Door open when patient unattendedProblem: Pressure Inju ry - Risk ofGoal: *Prevention of pressure injuryDescriptionDocument Butch Scale a nd appropriate interventions in the flowsheet.Outcome: Progressing Towards G oalNote:Pressure Injury Interventions:Sensory Interventions: Assess changes in LOCMois ture Interventions: Absorbent underpadsActivity Interventions: Pressur e redistribution bed/mattress(bed type)Mobility Interventions: Float heels , Pressure redistribution bed/mattress (bedtype)Nutrition Interventions: Docume nt food/fluid/supplement intakeFriction and Shear Interventions: Apply protective ba rrier, creams andemollientsProblem: Tissue Perfusion - Cardiopulmonary, AlteredGoal : *Absence of hypoxiaOutcome: Progressing Towards Goal Name Value Range Interpretation Code Description Data Harriett rce(s) Supporting Document(s ) ID Date Data Source [id number] 01/14/2019 10:03:14 AM EDT [facility] Progress NotePatient: Evelio Carlin Sex: male DOA: 01/10/2019Date of : 1950 Age: 68 y.o. :[id number]:Reyes Carlin is 68 y.o. male Who is more awake and alert. He is appearingcomfortable. He is pulling off his nasal canula. The RN is requestingrestraints.Will order Mitts for restraints.Pt Presented to the ED from [facility] with medical history of Dysphagia ,s/p surgical placement of peg on 11/17/18, severe intellectual disability,Chronic respiratory failure, large Hiatal Hernia, hyperparathyroid unspecified,personal h/ o pulmonary embolus, anxiety disorder, kyphosis and schizophrenia. Ptis nonverb al at baseline and is unable to provide a history.Per long-term transfer record s, at 6 AM, patient was found Hypoxic, with O2SAT of 87 % on O2 NC 87 % on 4 LPM, h eart rated 111 BPM, Blood Pressure of 105/73, respiratoryrate of 30 andaudible wheeze. Nebulizer treatment was given. He was placed on a NRM withimproved O2 SAT to 95 % , his respiratory rate was 30 and he was afebrile. Thenursing home transfer r ecord reporting that the resident removes nasal canulaat times. In the ED pt appe aring lethargic and having mild respiratory distress.CXR showing haziness at the rig ht lung base due to small effusion withatelectasis/infiltrate. No confluen t left lung process is seen. 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 Pupils are equalNeck: Supple, symmetrical, no adenopathy, no carotid bruit and no JVD.Lungs: Clear to auscultation bilaterally. No Wheezing o r Rhonchi. No rales.Chest wall: No Accessory muscle use.Heart: Regular ra te and rhythm, no murmur, or rubAbdomen: Positive Peg in place, soft non-tender. Not distended. Bowel soundsnormal. No massesExtremities: Extremities normal, a traumatic, No cyanosis. No edema. No clubbingSkin: Warm and dry. No rashe s or lesions. Not JaundicedLymph nodes: Cervical, supraclavicular normal.Psych: Not anxious or agitated.Neurologic: EOMs intact. No facial asymmetry. No aphasia or slurred speech.Generalized weakness, non ambulatory at baseline,, Alert and Awake .Intake and Output:Current Shift: No intake/output data recorded.Last three s hifts: 01/12 701 - 01/13 1900In: 100Out: 1999 [Urine:1999]Lab/Data Reviewed:Recen t Days:Recent Labs 01/13/1904WBC 5.2 4.9 6.9HGB 11.0* 10. 8* 10.4*HCT 33.9* 33.2* 31.9*PLT 262 246 221Recent Labs 01/13/1904NA 134* 137 133*K 3.6 3.8 4.2CL 95* 99 96*CO2 35* 36* 32GLU 93 99 71*BUN 6* 10 9CREA 0.35* 0.40* 0.34*CA 8.7 8.8 9.1MG 1.8 1.6 2.1PHOS 2.5 2.2* 2.8ALB 1. 9* 1.9* 2.0*No results for input(s): PH, PCO2, PO2, HCO3, FIO2 in the last 72 tammy rs.CULTURE, BLOOD [[id number]] (Order [id number])MicrobiologyDate: 01/10/2019 De partment: [facility] Released By/Authorizing: Wes Romero MD (a uto-released)Specimen Information: Blood Component Value Flag Ref Range Units Sta tusSpecial Requests: PreliminaryNO SPECIAL REQUESTSCulture result: NO GROWT H 3 DAYSCULTURE, BLOOD [[id number]] (Order [id number])MicrobiologyDate: 01/10/2019 De partment: [facility] Released By/Authorizing: Wes Romero MD (a uto-released)Specimen Information: Blood Component Value Flag Ref Range Units Sta tusSpecial Requests: PreliminaryNO SPECIAL REQUESTSCulture result: NO GROWT H 3 DAYSCULTURE, URINE [[id number]] (Order [id number])MicrobiologyDate: 01/10/2019 De partment: [facility] Released By/Authorizing: Wes Romero MD (a uto-released)Specimen Information: Clean catch; Urine Component Value Flag Ref Ra nge Units StatusSpecial Requests: FinalNO SPECIAL REQUESTSCulture result: NO GROWTH 1 DAY FinalXr Chest Sngl VResult Date: 12/25/2018Portable chest x- ray. PRIOR EXAM: X-ray 12/18/2018 HISTORY: Pneumonia FINDINGS:The heart is normal i n size. The mediastinum and pulmonary vessels areunremarkable. There is a small right pleural effusion.. A tube projected overthe left upper quadrant of the abdomen..IMPR ESSION: Small right pleural effusion.Ct Chest Wo ContResult Date: 01/10/2019CT CHEST WO CONT Clinical data: evaluation of pneumonia rt lung. Priors:12/18/2018 Technique: CT s can of the chest was performed from the thoracic inletto below the diaphragm wit hout administration of intravenous contrast. Theacquisition data was reviewed in the axial, sagittal and coronal plane.Utilizing silver holloware assembler algorithm the examination w as performed to optimizeimaging quality by utilizing the lowest possible radiation dose. Findings: Thereis no evidence of pathological lymphadenopathy within the mediastinum, bilateralhilar and bilateral axillary location. There is a 1.8 cm no dule along the rightwall of the trachea at the level of the thoracic inlet (best se en on image 13ofseries 2) not seen on the prior study. This may be due to a mucou s plug. Noadditional endotracheal or endobronchial lesion is noted.Normal hea rt size.Coronary artery calcifications noted. Atherosclerotic thoracic aorta withouta neurysmal dilatation. Evaluation lung windows demonstrates patchy right lowerlobe lung infiltrate. There is associated small right pleural effusion similarto prior. There is also small left pleural effusion with underlying passiveatelectasis slightly d ecreased from the prior study. No new lung pathology isobserved. Included upper abd ominal organs: No significant pathology is observedwithin the visualized upper abdo wanda organs.IMPRESSION: Small bilateral pleural effusion. Right effusion is sim ilar toprior study. Left effusion slightly decreased in size. Patchy right lungopa cities which may be due to pneumonia similar to previous examinations. 1.8cm nodule along the right lateral wall of the trachea at the level of thethoracic inlet not ob served on the prior study and can be due to a mucous plug.Ct Chest Wo ContResult Date: 12/18/2018Referring Physician: KRYSTIAN MONAE Patient Name: EVELIO CARLIN THIS IS AFINAL REPORT FROM [facility] DATE OF SERVICE: 2018-12-18 01:22:40 IMAGES:555 EXAM: CT CHEST WO CONTRAST HISTORY: .. Right lower lobe atelectasis..TECHNIQUE: Helic al axial imaging from the thoracic inlet through the adrenalglands without contra st. Sagittal and coronal reconstructions were obtained.COMPARISON: CT chest without co ntrast of 12/13/2018. FINDINGS: .. Evaluationremains limited due to lack of IV contrast and patient positioning. The imagedthyroid gland remains atrophic. Th e aorta remains normal in caliber.Atherosclerotic calcifications a re again seen in the aorta. There is againcardiomediastinal shift towards the right. The heart remains normal in size andno pericardial effusion is noted. No obvious lymphadenopathy seen on thisunenhanced scan. No pneumothorax is noted. Since the prior exam there is beenincrease in bilateral pleural effusi ons with associated consolidations. Acalcified granuloma is again seen in th e right lower lobe. The imaged upperabdomen does not demonstrate any gross acute maggy nges. Osteopenia is again noted.Degenerative changes again seen in the imaged spine. Old healed right posteriorlower rib fractures are again seen.IMPRESSION: .. Limited s tudy demonstrating increase in bilateral pleuraleffusions with associated consoli dations with persistent cardiomediastinal shifttowards the right. Stable findings as noted above.. One or more of the followingdose reduction techniques were used: automated exposure control, adjustment ofthe mA and/or kV according to patient size, use of iterative reconstructivetechnique. THIS DOCUMENT H BEEN ELECTRONICALLY SIGNED Kamran Gillette MD 12/18/2018 04:49 GINA Verde Please call [facility] [phone] with questions. This report was electronically signed by: Tala MENDEZ 12/18/2018 04: 50 AMCta Up Ext Lt W ContResult Date: 12/18/2018History: Arm claudication. FINDI NGS: CTA of the left upper extremity wasperformed helically from level of the shoulder through the fingers after theintravenous administration of 119 cc of Isovue. Sagittal, coronal, and 3-Dreconstructed images obtained on an RealtimeBoard workstation are submitted. Noprior studies are available for comparison. Th e left subclavian artery is widelypatent. It is continuous with a widely patent left axillary artery. The axillaryartery is continuous with a widely patent left bra chial artery. The brachialartery bifurcates into a radial and ulnar artery just belo w the elbow. From thispoint distally streak artifact from patient positioning limits evaluation.However, the ulnar artery appears widely patent to the wrist. The radial a rteryis less well opacified but does appear patent to the wrist as well. Anintraosse ous artery also appears patent although it is poorly visualized aswell. The digital ar teries are not visualized on this study. There arebilateralpleural effusions note d both of which are moderate to large. Theeffusion on the left one is larger th an the right. Bibasilar atelectatic changethroughout much of the lower lobes is seen. There is a significant shift ofmediastinal structures to the right. T he liver is decreased in attenuationcompatible with fatty infiltr ation. The spleen is unremarkable. The adrenalglands are normal in appearance. The pancreas is grossly normal as is thegallbladder. A gastrostomy tube is no mikel in situ. The kidneys are unremarkable.There is a midline abdomina l wall hernia containing large and small bowel aswell as mesentery without eviden ce of obstruction. There is some presacralthickening and possibly some fr ee fluid noted. The patient is status post ORIFof the left hip with metallic hardwa re in situ.IMPRESSION: Patent left upper extremity arterial vessels although eval uationdistally is limited. Bilateral pleural effusions and bibasilar atelectasis.Shif t of mediastinal structures to the right.Ct Abd Pelv Wo ContResult Date: 12/21/2018His tory: ? Maturity of g-tube tract Technique: CT of the abdomen and pelvis wasperforme d from the dome of the diaphragm to the pubic symphysis without oral orintravenous con trast with dose lowering techniques. Sagittal and coronalreconstructions were performe d. Evaluation of solid abdominal viscera iscompromised by by the lack of intraven ous contrast. Evaluation of the bowelloops is compromised lack of oral contrast. All C T scans at this facility areperformed using dose optimization technique as appropria te to a performed exam,to include automated exposure control, adjustment of the mA a nd/or kV accordingto patient size (including appropriate matching first site-specific examinations), or use of iterative reconstruction technique. Comparison: CT scanof the chest performed 12/19/18 Findings: There is a small right pleural effusionw ith adjacent atelectasis. There is minimal left pleural fluid with adjacentatelecta sis. There is a pigtail catheter again identified on the left. The exactlocatio n of this catheter is difficult to ascertain benefits above the diaphragmto below the diaphragm. On today's study the tip appears to be located below thediaphragm. There is a small right pleural effusion with adjacent atelectasis.There is a G-tube i dentified in the stomach. The liver, gallbladder, spleen,pancreas, kidneys an d adrenal glands are unremarkable. No abdominal, pelvic oringuinal lymphadenop athy is identified. No free intraperitoneal fluid is noted.There is a ventral wall h ernia containing loops of what appear to be small bowelhowever are difficult to foll ow. There is mild perirectal stranding andpresacral edema correlate clinically. No dilated loops of bowel are identified.There is mild diverticulosis of the colon. The prostate, bladder and seminalvesicles appear unremarkable. The re are streak artifact obscuring portions ofthe pelvis due to a left hip ORIF. The re is subcutaneous gas identified alongthe right lower anterior pelvic wall.IMPRESS ION: There is a G-tube identified in the stomach. There is a tailcatheter identif ied on the left. The tip appears to be located below thediaphragm although is d ifficult to assess on CT. There is a small residualamount of pleural fluid as well as atelectasis along the left diaphragm. Thereis perirectal stranding and presacr al edema.Ct Thoracentesis Insrt Chest TubeResult Date: 12/19/2018History: Pleura l effusion. PROCEDURE: After being informed of the risks,benefits, and potential alt ernatives procedure informed consent was obtained.The patient was placed on the t able in the [id number] decubitus position.CT scanning was performed locat ion was chosen over the left flank. However, dueto the significant amount of patient motion and breathing motion was difficultto accurately assess a location for percuta neous paracentesis. Therefore, thiswas performed manually. After the chosen reg ion was prepped and draped in thenormal sterile fashion using maximum sterile ba rrier technique a lidocaineneedle was placed in the skin. This appeared to be in good position. Lidocainewas then used to anesthetize the skin and subcutaneous ti ssues in this location.Attempts were made to pass an 8 Congolese pigtail catheter throug h this location.However, patient continuous motion was significant as well as excess ivebreathing during the procedure. The catheter was placed at the same interspa ceas well as marked on the prior CT sequence however, due to the excessive patientmot ion the catheter was far more inferior within the chest that on the priorsequences. Th e catheter appeared to enter the hemiabdomen on the left from theleft chest. The cath eter was then pulled back to position where clear yellowfluid was aspirated. It was then sewn in position However, It appeared tomigrate forward and on the CT scanning appeared to again transgress thediaphragm. It was therefore pulled back to a point where only a clear fluid wasaspirated and respiratory variation was noted within t he tube. It was then sewnin position using 2-0 silk sutures. FINDINGS: Initial CT s debora revealed amoderate left pleural effusion. Attempts to nancy an adequate l ocation forpercutaneous thoracentesis were quite limited due to excessive patient m otionand breathing throughout the procedure. A location that appear to be a safelocat ion was marked. However, when the catheter was placed in this sameinterspace as wel l as marked the catheter appeared to be far more inferiorwithin the hemithorax than that seen previously. It appeared to enter the lefthemithorax inferiorly and transg ress the diaphragm with no evidence pathologicsequela. Therefore, it was pul led back into the pleural space for adequatedrainage. 130 cc of lightly bloo d-tinged fluid was aspirated. The catheter wasattached to a Pleur-evac and wall suc tion.IMPRESSION: Left-sided thoracentesis described above.Xr Chest PortResult Date : 01/10/2019XR CHEST PORT Clinical data: Sepsis Priors: 12/29/2018. Findings: Exam ination iscompromised due to limited inspiration and patient rotation. Heart size isunchanged. Haziness seen at the right lung base can be due to small effu sionwith atelectasis/infiltrate. No confluent left lung process is seen. No evidence of CHF.IMPRESSION: Limited study. Suspect right lung base process which ma y be due tosmall effusion with atelectasis/infiltrate.Xr Chest PortResu lt Date: 12/29/2018History: leukocytosis Technique: Portable chest x-ray 9 11:01 AMComparison: 12/25/2018. FINDINGS: There is a right lower lobe infiltrate o ratelectasis which is increased since prior exam. There is poor inspiration.There is a small left pleural effusion. The exam is rotated. Evaluation of thecardiac silhou ette is limited by projection. The visualized osseous structuresappear unremarkable.IM PRESSION: There is a right lower lobe infiltrate or atelectasis which isincrea sed since prior exam.Xr Chest PortResult Date: 12/18/2018Portable chest x-ray. PRIO R EXAM: 12/12/2018 and 11/25/2018 HISTORY: Pneumonia andpleural effusions FINDINGS: The heart is normal in size. The mediastinum andpulmonary vessels are unremarkable. T here is haziness within the lung basesbilaterally... The bony structures are intact.IMPRESSION: Haziness within the lung bases bilaterally that could repres entsmall pleural effusions and/or subsegmental atelectasis. Similar findin gs wereseen on prior exams.Duplex Upper Ext Venous LeftResult Date: 12/26/2018DUPLEX UPPER EXT VENOUS LEFT Clinical Data: Arm swelling, DVT suspectedFindings: The vis ualized segments of the left upper extremity venous circulationfrom the level of the subclavian vein to the brachial vein is compressible andshows normal phasic flow without an intraluminal thrombus. In addition, theinternal jugular vein and t he basilic vein is also patent. Extremely limitedexam because the patient was unab le to cooperate and this was done in a portablefashion.IMPRESSION: No evidence of deep vein thrombosis within the visualized left upperextremity venous circulation. Limited study.Duplex Lower Ext Venous BilatResult Date: 01/11/2019HISTORY: agustina ling to lower extremities TECHNIQUE: Bilateral lower extremityvenous Doppler ultrasound Using real time and color-flow Doppler as well asspectral analysis and ultrasound examination was performed of the lowerextremities bilaterally. FINDINGS: On the right side the common femoral vein,superficial femoral vein along its entire course, as well as popliteal vein allappeared widely patent, were easily c ompressible, showed normal spontaneousflow. The calf veins were not visualized due t o body habitus. On the left sidethe common femoral vein, superficial femoral vein a long its entire course, aswell as popliteal vein all appeared widely patent, were ea sily compressible, andshowed normal spontaneous flow. The calf veins were no t visualized due to bodyhabitus.IMPRESSION: Normal bilateral lower extremity venous Doppler ultrasound with noevidence of deep vein thrombosis.Medications reviewedCurr ent Facility-Administered MedicationsMedication Dose Route Frequen cy multivit-folic acid-herbal 275 (WELLESSE PLUS) oral liquid 30 mL 30 mL Per GTube DAILY potassium, sodium phosphates (NEUTRA-PHOS) packet 1 Packet 1 Packet Per GTube QID acetylcysteine (MUCOMYST) 100 mg/mL (10 %) nebulizer solution 600 mg 6 mLNebulization BID budesonide (PULMICORT) 500 mcg/2 ml nebulizer suspension 500 m cg NebulizationBID RT sodium chloride (NS) flush 5-10 mL 5-10 mL IntraVENous PRN cholestyramine-aspartame (QUESTRAN LIGHT) packet 4 g 4 g Oral TID WITH MEALS dominick acalcet (SENSIPAR) tablet 60 mg 60 mg Oral DAILY lamoTRIgine (LaMICtal) tablet 50 mg 50 mg Per G Tube BID pantoprazole (PROTONIX) granules for oral suspension 40 mg 40 mg Per G TubeACB valproic acid (as sodium salt) (DEPAKENE) 250 mg/5 mL (5 m L) oral solution 750mg 750 mg Oral BID ALPRAZolam (XANAX) tablet 0.5 mg 0.5 mg Per G Tube QHS acetaminophen (TYLENOL) solution 650 mg 650 mg Oral Q4H PRN he lili (porcine) injection 5,000 Units 5,000 Units SubCUTAneous Q12H influenza vacci ne 2018- (65 yrs+)(PF) (FLUZONE HIGH-DOSE) injection 0.5 mL0.5 mL IntraMUSCular YUAN OR TO DISCHARGE albuterol-ipratropium (DUO-NEB) 2.5 MG-0.5 MG/3 ML 3 mL Nebul ization Q6H RT piperacillin-tazobactam (ZOSYN) 3.375 g in 0.9% sodium chloride (MBP/ADV) 100mL MBP 3.375 g IntraVENous N3MZjibambohb/Plan:Hospital Problems Da te Reviewed: 01/12/2019 Codes Class Noted POA Acute respiratory failure with hypoxia (HCC) ICD-10-CM: J96.01ICD-9-CM: 518.81 01/10/2019 Unknown Pneumonia invo lving right lung ICD-10-CM: J18.9ICD-9-CM: 486 01/10/2019 Unknown Hyponatremia ICD- 10-CM: E87.1ICD-9-CM: 276.1 01/10/2019 YesAssessment: Acute Respiratory Failur e with Hypercapnia and HypoxiaPneumonia likely Aspiration RLLAtelectasisDysphagi a s/p surgical placed pegMentally challengedSeizureHyperparathyroidLeft an kle and pedal edema- ResolvedPlan:Continuous O2 NC/PRN Bipap per pulmonaryIV zosyn pe r IDNebulizersFollow culturesRestraints with mittsContinue with bolus TF for dipikaShirl demetria [place] 2018Time: 11:49 PM Name Value Range Interpretation Code Description Data Harriett rce(s) Supporting Document(s ) ID Date Data Source [id number] 01/14/2019 07:53:09 AM EDT [facility] Bedside and Verbal shift change report g iven to Shira Knox RN (oncomingnurse) by Marni Regalado RN (offgoing nurse). Re port included the followinginformation SBAR and Kardex. ' Name Value Range Interpretation Code Description Data Harriett rce(s) Supporting Document(s ) ID Date Data Source [id number] 01/14/2019 07:31:11 AM EDT [facility] Name Value Range Interpretation Description Data Sup porting Code Source(s) Document(s ) Leukocytes 4.4 K/uL 4.8-10.6 Below low normal [facility] - [#/volume] in [facility] Blood by [facility] Erythrocytes 3.02 4.70-6.0 Below low normal [facility] - [#/volume] in M/uL 0 [facility] Hemoglobin 10.4 14.0-18. Below low normal [facility] - [Mass/volume] in g/dL 0 [facility] Blood [facility] Hematocrit 31.1 % 42.0-52. Below low normal [facility] - [Volume 0 Good Fraction] of [facility] Blood by Hospital Automated count Erythrocyte mean 103.0 FL 81.0-94. Above high normal [facility] - corpuscular 0 Good volume [Entitic [facility] volume] by Hospital Automated count Erythrocyte mean 34.4 PG 27.0-35. [facility] - corpuscular 0 Good hemoglobin [facility] [Entitic mass] [facility] by Automated count Erythrocyte mean 33.4 30.7-37. [facility] - corpuscular g/dL 3 Good hemoglobin [facility] concentration Hospital [Mass/volume] by Automated count Erythrocyte 17.0 % 11.5-14. Above high normal [facility] - distribution 0 Good width [Ratio] by [facility] Platelets 239 K/uL 130-400 [facility] - [#/volume] in Good Blood by [facility] Automated count [facility] Platelet mean 8.7 FL 9.2-11.8 Below low normal [facility] - volume [Entitic Good volume] in Blood [facility] by Automated Hospital count Segmented 59 % 48.0-72. [facility] - neutrophils/100 0 Good leukocytes in [facility] Lymphocytes/100 24 % 18.0-40. [facility] - leukocytes in 0 [facility] Blood [facility] Monocytes/100 11 % 2.0-12.0 [facility] - leukocytes in [facility] Blood [facility] Eosinophils/100 6 % 0.0-7.0 [facility] - leukocytes in [facility] Blood [facility] Basophils/100 0 % 0.0-3.0 [facility] - leukocytes in [facility] Blood [facility] Segmented 2.6 K/UL 1.5-6.6 [facility] - neutrophils Good [#/volume] in [facility] Lymphocytes 1.0 K/UL 1.5-3.5 Below low normal [facility] - [#/volume] in [facility] Monocytes 0.5 K/UL 0.0-1.0 [facility] - [#/volume] in [facility] Eosinophils 0.2 K/UL 0.0-0.7 [facility] - [#/volume] in [facility] Basophils 0.0 K/UL 0.0-0.1 [facility] - [#/volume] in [facility] Differential [facility] - cell count [facility] Immature 1 % 0.0-2.0 [facility] - granulocytes/100 [facility] leukocytes in [facility] by [facility] Automated count ID Date Data Source [id number] 01/14/2019 07:28:25 AM EDT [facility] Name Value Range Interpretation Description Data Sup porting Code Source(s) Document(s ) Magnesium 1.9 mg/dL 1.6-2.6 [facility] - Good [Mass/volume] [facility] in Serum or Hospital Plasma ID Date Data Source [id number] 01/14/2019 07:28:25 AM EDT [facility] Name Value Range Interpretation Description Data Sup porting Code Source(s) Document(s ) Sodium 137 136-145 [facility] - Good [Moles/volume] mmol/L [facility] in Serum or Hospital Plasma Potassium 4.1 3.5-5.1 [facility] - Good [Moles/volume] mmol/L [facility] in Serum or Hospital Plasma Chloride 99 98-107 [facility] - Good [Moles/volume] mmol/L [facility] in Serum or Hospital Plasma Carbon 36 21-32 Above high normal [facility] - Good dioxide, total mmol/L [facility] [Moles/volume] Hospital in Serum or Plasma Anion gap in 5 mmol/L 10-20 Below low normal [facility] - Go od Serum or [facility] Plasma Hospital Glucose 112 74-106 Above high normal [facility] - Good [Mass/volume] mg/dL [facility] in Serum or Hospital Plasma Urea nitrogen 8 mg/dL 7-18 [facility] - Good [Mass/volume] [facility] in Serum or Hospital Plasma Creatinine 0.38 0.70-1.3 Below low normal [facility] - Good [Mass/volume] mg/dL 0 [facility] in Serum or Hospital Plasma Glomerular >60 [facility] - Good filtration [facility] rate/1.73 sq M Hospital predicted among blacks [Volume Rate/Area] in Serum or Plasma by Creatinine-bas ed formula (MDRD) Glomerular >60 [facility] - Good filtration [facility] rate/1.73 sq M Hospital predicted among non-blacks [Volume Rate/Area] in Serum or Plasma by Creatinine-bas ed formula (MDRD) Calcium 8.4 8.5-10.1 Below low normal [facility] - Good [Mass/volume] mg/dL [facility] in Serum or Hospital Plasma Phosphate 3.4 2.5-4.9 [facility] - Good [Mass/volume] mg/dL [facility] in Serum or Hospital Plasma Albumin 1.7 g/dL 3.5-4.7 Below low normal [facility] - Good [Mass/volume] [facility] in Serum or Hospital Plasma by Bromocresol purple (BCP) dye binding method ID Date Data Source [id number] 01/13/2019 05:45:00 PM EDT [facility] ID Progress Note01/13/2019Subjective:Siri ent with mental retardation,recurrent aspiration pneumonia.Non verbal,unable t o provide history.AfebrileCultures negativeNo new events..Objective:Vitals:Patient Vit als for the past 24 hrs: BP Temp Pulse Resp SpO2 Lpwzpd38/01/19 1510 107/64 98.3 F (36.8 C) 72 - 98 % -01/13/19 1122 108/87 98.6 F (37 C) 78 - 96 % -01/13/19 0842 - - - - 97 % -01/13/19 0828 - - - - 96 % -01/13/19 0732 100/58 97.1 F (36.2 C) 72 20 96 % -01/13/19 0608 - - - - - 56.7 kg (125 lb)01/13/19 0434 102/58 98.5 F (36 .9 C) 75 - 95 % -01/13/19 0148 - - - - 96 % -01/12/19 2335 106/78 98.5 F (36.9 C) - 18 95 % -01/12/192034 - - - - 94 % -01/12/191958 104/88 98.5 F (36.9 C) 83 18 92 % -Tmax: Temp (24hrs), Av.3 F (36.8 C), Min:97.1 F (36.2 C), Max:98 .6 F(37 C)Physical Exam:General: Awake non verbal cooperative, no distressNeck: Sup ple, symmetrical, trachea midline, no adenopathLungs: Bilateral breath sound s with basal crackles.Heart: Regular rate and rhythm, S1, S2 normalAbdomen: Soft , non-tender. Bowel sounds normal. No masses, No organomegaly.+feeding tubeBack: No CVA tenderness.Extremities: Chronic lymphedema.Pulses: 2+ and symmetric all extremities.Skin: Skin color, texture, turgor normal. No rashes or lesionsCurrent Faci lity-Administered MedicationsMedication Dose Route Frequency multivit-folic acid-her bal 275 (WELLESSE PLUS) oral liquid 30 mL 30 mL Per GTube DAILY potassium, sodium ph osphates (NEUTRA-PHOS) packet 1 Packet 1 Packet Per GTube QID acetylcysteine (MU COMYST) 100 mg/mL (10 %) nebulizer solution 600 mg 6 mLNebulization BID budesonide (PULMICORT) 500 mcg/2 ml nebulizer suspension 500 mcg NebulizationBID RT sodium chloride (NS) flush 5-10 mL 5-10 mL IntraVENous PRN cholestyramine-aspartam e (QUESTRAN LIGHT) packet 4 g 4 g Oral TID WITH MEALS cinacalcet (SENSIPAR) tablet 60 mg 60 mg Oral DAILY lamoTRIgine (LaMICtal) tablet 50 mg 50 mg Per G Tub e BID pantoprazole (PROTONIX) granules for oral suspension 40 mg 40 mg Per G TubeA CB valproic acid (as sodium salt) (DEPAKENE) 250 mg/5 mL (5 mL) oral solution 750mg 750 mg Oral BID ALPRAZolam (XANAX) tablet 0.5 mg 0.5 mg Per G Tube QHS acetamino phen (TYLENOL) solution 650 mg 650 mg Oral Q4H PRN heparin (porcine) injection 5,0 00 Units 5,000 Units SubCUTAneous Q12H influenza vaccine 2019- (65 yrs+)(PF) (FLUZONE HIGH-DOSE) injection 0.5 mL0.5 mL IntraMUSCular PRIOR TO DISCHARGE albute rol-ipratropium (DUO-NEB) 2.5 MG-0.5 MG/3 ML 3 mL Nebulization Q6H RT piperacillin-t azobactam (ZOSYN) 3.375 g in 0.9% sodium chloride (MBP/ADV) 100mL MBP 3.375 g In traVENous [id number]:Recent Labs 01/13/1904WBC 5.2 4.9 6.9 HGB 11.0* 10.8* 10.4*PLT 262 246 221BUN 6* 10 9CREA 0.35* 0.40* 0.34*Cultures:Lab Resu ltsComponent Value Date/Time Culture result: NO GROWTH 1 DAY 01/10/2019 08:58 AM Cult ure result: NO GROWTH 3 DAYS 01/10/2019 07:55 AM Culture result: NO GROWTH 3 DAYS 12/15 07:40 AMRadiology:No results found.Assessment: Aspiration pneumonia. Acute hypoxic respiratory failure. Dysphagia Pleural effusion. . COPD Pl an:1. Continue IV zosyn.Natasha Dudley MDKarmanos Cancer Center 20185:43 PM Name Value Range Interpretation Code Description Data Harriett rce(s) Supporting Document(s ) ID Date Data Source [id number] 01/13/2019 05:26:05 PM EDT [facility] Progress NotePatient: Evelio Carlin Sex: male DOA: 01/10/2019Date of : 1950 Age: 68 y.o. :[id number]:Reyes Carlin is 68 y.o. male Who is more awake and alert. He isappearing comfor table. He is pulling off his nasal canula. The RN isrequesting restraints.Will orde r Mitts for restraints.Pt Presented to the ED from [facility] with medical history of D ysphagia ,s/p surgical placement of peg on 11/17/18, severe intellectual disability, Chronic respiratory failure, large Hiatal Hernia, hyperparathyroid unspecified,pe rsonal h/o pulmonary embolus, anxiety disorder, kyphosis and schizophrenia. Pt is nonverbal at baseline and is unable to provide a history.Per [facility], at 6 AM, patient was found Hypoxic, with O2SAT of 87 % on O2 NC 87 % on 4 LPM, heart rated 111 BPM, Blood Pressure of 105/73, respiratoryrate of 30 andaudible wheeze. Nebulizer treatment Pt was afebrile He was placed on a NRMw ith improved O2 SAT to 95 % , his respiratory rate was 30 and he was afebrile.[facility] reporting that the resident removes nasalcanula at times. In the ED pt appearing lethargic and having mild respiratory distress.CXR showing nelson ziness at the right lung base due to small effusion withatelectasis/infiltrate. No confluent left lung process is seen. Sodium bowtv524.ABG with pH 7.46/53/66/38 O2 SA T 95 % on NC 4 LPM.The patient with initial encounter diagnosis of Respiratory distr ess, Sepsis,due to unspecified organism, Hypoxia, Lethargy and Aspiration Pneumon ia of rightlung, unspecified aspiration pneuminia type, unspecified part of lung .The patient received Tylenol, IV vancocin and zosyn and IV fluids.The patient was seen and examined in the ED, he is lethargic and tachypneic withRR 30. His O2 SAT on NC 4 LPM is now 90 %The RN reporting that patient is tolerating his bolus tube fee dings. 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)Review of Systems: [x] Unable to obtain ROS due to patient factors.Objective:Visit VitalsBP 104/88 (BP 1 Location: Right arm, BP Pat ient Position: At rest)Pulse 83Temp 98.5 F (36.9 C)Resp 18Ht 5' 2" (1.575 m)Wt 55. 1 kg (121 lb 8 oz)SpO2 94%BMI 22.22 kg/m PHYSICAL EXAM:General: Alert, coopera tive, no distress, appears stated age. Wearing O2 NCHead: Normocephalic, with out obvious abnormality, atraumatic.Eyes: Conjunctivae clear, anicteric sclerae. Pupils are equalThroat: Lips, mucosa, and tongue normal. No ThrushNeck: Supple, symmetrical, no adenopathy, no carotid bruit and no JVD..Lungs: Clear to ausc ultation bilaterally. No Wheezing or Rhonchi. No rales.Chest wall: No Acces augusto muscle use.Heart: Regular rate and rhythm, no murmur, or rub.Abdomen: Po sitive peg, non-tender. Not distended. Bowel sounds normal. NomassesExtremities : Extremities normal, atraumatic, No cyanosis. No edema. No clubbingSkin: Warm and dry. No rashes or lesions. Not JaundicedLymph nodes: Cervical, supracla vicular normal.Psych: Not anxious or agitated.Neurologic: EOMs intact. No fac ial asymmetry. No aphasia or slurred speech.Generalized weakness, Alert and A wake.Intake and Output:Current Shift: No intake/output data recorded.Last three s hifts: 01/11 701 - 01/12 1900In: 1300 [I.V.:800]Out: 450 [Urine:450]Lab/Data R eviewed:Recent Days:Recent Labs 01/12/1904WBC 4.9 6.9 10. 4HGB 10.8* 10.4* 12.0*HCT 33.2* 31.9* 36.2*PLT 246 221 233Recent Labs [id number] 01/10/1917NA 137 133* 133* -- 126*K 3.8 4.2 4.6 -- 4.5CL 99 96* 96* -- 87*CO2 36* 32 32 < > 38*GLU 99 71* 124* -- 114*BUN 10 9 7 -- 7CREA 0.40* 0.34* 0.41* -- 0.48*CA 8.8 9.1 8.8 -- 9.4MG 1.6 2 .1 -- -- --PHOS 2.2* 2.8 3.0 -- --ALB 1.9* 2.0* 2.0* -- 2.3*TBILI -- -- -- -- 0.2SGOT -- -- -- -- 13*ALT -- -- -- -- 12*INR -- -- -- -- 1.0 < > = values in this interval not displayed.Recent Labs [id number] 7. 46*PCO2 53*PO2 66*HCO3 38*CULTURE, BLOOD [[id number]] (Order [id number])MicrobiologyD ate: 01/10/2019 Department: [facility]urg Released By/Authorizing: Wes Romero MD (auto-released)Specimen Information: Blood Component Value Flag Ref Range Uni ts StatusSpecial Requests: PreliminaryNO SPECIAL REQUESTSCulture result: NO GROWT H 3 DAYSCULTURE, BLOOD [[id number]] (Order [id number])MicrobiologyDate: 01/10/2019 De partment: [facility] Released By/Authorizing: Wes Romero MD (a uto-released)Specimen Information: Blood Component Value Flag Ref Range Units Sta tusSpecial Requests: PreliminaryNO SPECIAL REQUESTSCulture result: NO GROWT H 3 DAYSCULTURE, URINE [[id number]] (Order [id number])MicrobiologyDate: 01/10/2019 De partment: [facility] Released By/Authorizing: Wes Romero MD (a uto-released)Specimen Information: Clean catch; Urine Component Value Flag Ref Ra nge Units StatusSpecial Requests: FinalNO SPECIAL REQUESTSCulture result: NO GROWTH 1 DAYXr Chest Sngl VResult Date: 12/25/2018Portable chest x-ray. PRIOR EXA M: X-ray 12/18/2018 HISTORY: Pneumonia FINDINGS:The heart is normal in size. Th e mediastinum and pulmonary vessels areunremarkable. There is a small right pleural effusion.. A tube projected overthe left upper quadrant of the abdomen..IMPR ESSION: Small right pleural effusion.Ct Chest Wo ContResult Date: 01/10/2019CT CHEST WO CONT Clinical data: evaluation of pneumonia rt lung. Priors:12/18/2018 Technique: CT s can of the chest was performed from the thoracic inletto below the diaphragm wit hout administration of intravenous contrast. Theacquisition data was reviewed in the axial, sagittal and coronal plane.Utilizing silver holloware assembler algorithm the examination w as performed to optimizeimaging quality by utilizing the lowest possible radiation dose. Findings: Thereis no evidence of pathological lymphadenopathy within the mediastinum, bilateralhilar and bilateral axillary location. There is a 1.8 cm no dule along the rightwall of the trachea at the level of the thoracic inlet (best se en on image 13ofseries 2) not seen on the prior study. This may be due to a mucou s plug. Noadditional endotracheal or endobronchial lesion is noted.Normal hea rt size.Coronary artery calcifications noted. Atherosclerotic thoracic aorta withouta neurysmal dilatation. Evaluation lung windows demonstrates patchy right lowerlobe lung infiltrate. There is associated small right pleural effusion similarto prior. There is also small left pleural effusion with underlying passiveatelectasis slightly d ecreased from the prior study. No new lung pathology isobserved. Included upper abd ominal organs: No significant pathology is observedwithin the visualized upper abdo wanda organs.IMPRESSION: Small bilateral pleural effusion. Right effusion is sim ilar toprior study. Left effusion slightly decreased in size. Patchy right lungopa cities which may be due to pneumonia similar to previous examinations. 1.8cm nodule along the right lateral wall of the trachea at the level of thethoracic inlet not ob served on the prior study and can be due to a mucous plug.Ct Chest Wo ContResult Date: 12/18/2018Referring Physician: KRYSTIAN MONAE Patient Name: EVELIO CARLIN THIS IS AFINAL REPORT FROM [facility] DATE OF SERVICE: 2018-12-18 01:22:40 IMAGES:555 EXAM: CT CHEST WO CONTRAST HISTORY: .. Right lower lobe atelectasis..TECHNIQUE: Helic al axial imaging from the thoracic inlet through the adrenalglands without contra st. Sagittal and coronal reconstructions were obtained.COMPARISON: CT chest without co ntrast of 12/13/2018. FINDINGS: .. Evaluationremains limited due to lack of IV contrast and patient positioning. The imagedthyroid gland remains atrophic. Th e aorta remains normal in caliber.Atherosclerotic calcifications a re again seen in the aorta. There is againcardiomediastinal shift towards the right. The heart remains normal in size andno pericardial effusion is noted. No obvious lymphadenopathy seen on thisunenhanced scan. No pneumothorax is noted. Since the prior exam there is beenincrease in bilateral pleural effusi ons with associated consolidations. Acalcified granuloma is again seen in th e right lower lobe. The imaged upperabdomen does not demonstrate any gross acute maggy nges. Osteopenia is again noted.Degenerative changes again seen in the imaged spine. Old healed right posteriorlower rib fractures are again seen.IMPRESSION: .. Limited s tudy demonstrating increase in bilateral pleuraleffusions with associated consoli dations with persistent cardiomediastinal shifttowards the right. Stable findings as noted above.. One or more of the followingdose reduction techniques were used: automated exposure control, adjustment ofthe mA and/or kV according to patient size, use of iterative reconstructivetechnique. THIS DOCUMENT H BEEN ELECTRONICALLY SIGNED Kamran Gillette MD 12/18/2018 04:49 GINA Jenkins. Please call [facility] [phone] with questions. This report was electronically signed by: Tala MENDEZ 12/18/2018 04: 50 AMCta Up Ext Lt W ContResult Date: 12/18/2018History: Arm claudication. FINDI NGS: CTA of the left upper extremity wasperformed helically from level of the shoulder through the fingers after theintravenous administration of 119 cc of Isovue. Sagittal, coronal, and 3-Dreconstructed images obtained on an RealtimeBoard workstation are submitted. Noprior studies are available for comparison. Th e left subclavian artery is widelypatent. It is continuous with a widely patent left axillary artery. The axillaryartery is continuous with a widely patent left bra chial artery. The brachialartery bifurcates into a radial and ulnar artery just belo w the elbow. From thispoint distally streak artifact from patient positioning limits evaluation.However, the ulnar artery appears widely patent to the wrist. The radial a rteryis less well opacified but does appear patent to the wrist as well. Anintraosse ous artery also appears patent although it is poorly visualized aswell. The digital ar teries are not visualized on this study. There arebilateralpleural effusions note d both of which are moderate to large. Theeffusion on the left one is larger th an the right. Bibasilar atelectatic changethroughout much of the lower lobes is seen. There is a significant shift ofmediastinal structures to the right. T he liver is decreased in attenuationcompatible with fatty infiltr ation. The spleen is unremarkable. The adrenalglands are normal in appearance. The pancreas is grossly normal as is thegallbladder. A gastrostomy tube is no mikel in situ. The kidneys are unremarkable.There is a midline abdomina l wall hernia containing large and small bowel aswell as mesentery without eviden ce of obstruction. There is some presacralthickening and possibly some fr ee fluid noted. The patient is status post ORIFof the left hip with metallic hardwa re in situ.IMPRESSION: Patent left upper extremity arterial vessels although eval uationdistally is limited. Bilateral pleural effusions and bibasilar atelectasis.Shif t of mediastinal structures to the right.Ct Abd Pelv Wo ContResult Date: 12/21/2018His tory: ? Maturity of g-tube tract Technique: CT of the abdomen and pelvis wasperforme d from the dome of the diaphragm to the pubic symphysis without oral orintravenous con trast with dose lowering techniques. Sagittal and coronalreconstructions were performe d. Evaluation of solid abdominal viscera iscompromised by by the lack of intraven ous contrast. Evaluation of the bowelloops is compromised lack of oral contrast. All C T scans at this facility areperformed using dose optimization technique as appropria te to a performed exam,to include automated exposure control, adjustment of the mA a nd/or kV accordingto patient size (including appropriate matching first site-specific examinations), or use of iterative reconstruction technique. Comparison: CT scanof the chest performed 12/19/18 Findings: There is a small right pleural effusionw ith adjacent atelectasis. There is minimal left pleural fluid with adjacentatelecta sis. There is a pigtail catheter again identified on the left. The exactlocatio n of this catheter is difficult to ascertain benefits above the diaphragmto below the diaphragm. On today's study the tip appears to be located below thediaphragm. There is a small right pleural effusion with adjacent atelectasis.There is a G-tube i dentified in the stomach. The liver, gallbladder, spleen,pancreas, kidneys an d adrenal glands are unremarkable. No abdominal, pelvic oringuinal lymphadenop athy is identified. No free intraperitoneal fluid is noted.There is a ventral wall h ernia containing loops of what appear to be small bowelhowever are difficult to foll ow. There is mild perirectal stranding andpresacral edema correlate clinically. No dilated loops of bowel are identified.There is mild diverticulosis of the colon. The prostate, bladder and seminalvesicles appear unremarkable. The re are streak artifact obscuring portions ofthe pelvis due to a left hip ORIF. The re is subcutaneous gas identified alongthe right lower anterior pelvic wall.IMPRESS ION: There is a G-tube identified in the stomach. There is a tailcatheter identif ied on the left. The tip appears to be located below thediaphragm although is d ifficult to assess on CT. There is a small residualamount of pleural fluid as well as atelectasis along the left diaphragm. Thereis perirectal stranding and presacr al edema.Ct Thoracentesis Insrt Chest TubeResult Date: 12/19/2018History: Pleura l effusion. PROCEDURE: After being informed of the risks,benefits, and potential alt ernatives procedure informed consent was obtained.The patient was placed on the t able in the [id number]-[id number]-atha decubitus position.CT scanning was performed locat ion was chosen over the left flank. However, dueto the significant amount of patient motion and breathing motion was difficultto accurately assess a location for percuta neous paracentesis. Therefore, thiswas performed manually. After the chosen reg ion was prepped and draped in thenormal sterile fashion using maximum sterile ba rrier technique a lidocaineneedle was placed in the skin. This appeared to be in good position. Lidocainewas then used to anesthetize the skin and subcutaneous ti ssues in this location.Attempts were made to pass an 8 Congolese pigtail catheter throug h this location.However, patient continuous motion was significant as well as excess ivebreathing during the procedure. The catheter was placed at the same interspa ceas well as marked on the prior CT sequence however, due to the excessive patientmot ion the catheter was far more inferior within the chest that on the priorsequences. Th e catheter appeared to enter the hemiabdomen on the left from theleft chest. The cath eter was then pulled back to position where clear yellowfluid was aspirated. It was then sewn in position However, It appeared tomigrate forward and on the CT scanning appeared to again transgress thediaphragm. It was therefore pulled back to a point where only a clear fluid wasaspirated and respiratory variation was noted within t he tube. It was then sewnin position using 2-0 silk sutures. FINDINGS: Initial CT s debora revealed amoderate left pleural effusion. Attempts to nancy an adequate l ocation forpercutaneous thoracentesis were quite limited due to excessive patient m otionand breathing throughout the procedure. A location that appear to be a safelocat ion was marked. However, when the catheter was placed in this sameinterspace as wel l as marked the catheter appeared to be far more inferiorwithin the hemithorax than that seen previously. It appeared to enter the lefthemithorax inferiorly and transg ress the diaphragm with no evidence pathologicsequela. Therefore, it was pul led back into the pleural space for adequatedrainage. 130 cc of lightly bloo d-tinged fluid was aspirated. The catheter wasattached to a Pleur-evac and wall suc tion.IMPRESSION: Left-sided thoracentesis described above.Xr Chest PortResult Date : 01/10/2019XR CHEST PORT Clinical data: Sepsis Priors: 12/29/2018. Findings: Exam ination iscompromised due to limited inspiration and patient rotation. Heart size isunchanged. Haziness seen at the right lung base can be due to small effu sionwith atelectasis/infiltrate. No confluent left lung process is seen. No evidence of CHF.IMPRESSION: Limited study. Suspect right lung base process which ma y be due tosmall effusion with atelectasis/infiltrate.Xr Chest PortResu lt Date: 12/29/2018History: leukocytosis Technique: Portable chest x-ray 9 11:01 AMComparison: 12/25/2018. FINDINGS: There is a right lower lobe infiltrate o ratelectasis which is increased since prior exam. There is poor inspiration.There is a small left pleural effusion. The exam is rotated. Evaluation of thecardiac silhou ette is limited by projection. The visualized osseous structuresappear unremarkable.IM PRESSION: There is a right lower lobe infiltrate or atelectasis which isincrea sed since prior exam.Xr Chest PortResult Date: 12/18/2018Portable chest x-ray. PRIO R EXAM: 12/12/2018 and 11/25/2018 HISTORY: Pneumonia andpleural effusions FINDINGS: The heart is normal in size. The mediastinum andpulmonary vessels are unremarkable. T here is haziness within the lung basesbilaterally... The bony structures are intact.IMPRESSION: Haziness within the lung bases bilaterally that could repres entsmall pleural effusions and/or subsegmental atelectasis. Similar findin gs wereseen on prior exams.Duplex Upper Ext Venous LeftResult Date: 12/26/2018DUPLEX UPPER EXT VENOUS LEFT Clinical Data: Arm swelling, DVT suspectedFindings: The vis ualized segments of the left upper extremity venous circulationfrom the level of the subclavian vein to the brachial vein is compressible andshows normal phasic flow without an intraluminal thrombus. In addition, theinternal jugular vein and t he basilic vein is also patent. Extremely limitedexam because the patient was unab le to cooperate and this was done in a portablefashion.IMPRESSION: No evidence of deep vein thrombosis within the visualized left upperextremity venous circulation. Limited study.Duplex Lower Ext Venous BilatResult Date: 01/11/2019HISTORY: swel ling to lower extremities TECHNIQUE: Bilateral lower extremityvenous Doppler ultrasound Using real time and color-flow Doppler as well asspectral analysis and ultrasound examination was performed of the lowerextremities bilaterally. FINDINGS: On the right side the common femoral vein,superficial femoral vein along its entire course, as well as popliteal vein allappeared widely patent, were easily c ompressible, showed normal spontaneousflow. The calf veins were not visualized due t o body habitus. On the left sidethe common femoral vein, superficial femoral vein a long its entire course, aswell as popliteal vein all appeared widely patent, were ea sily compressible, andshowed normal spontaneous flow. The calf veins were no t visualized due to bodyhabitus.IMPRESSION: Normal bilateral lower extremity venous Doppler ultrasound with noevidence of deep vein thrombosis.Medications reviewedCurr ent Facility-Administered MedicationsMedication Dose Route Frequen cy potassium, sodium phosphates (NEUTRA-PHOS) packet 1 Packet 1 Packet Per GTube QID acetylcysteine (MUCOMYST) 100 mg/mL (10 %) nebulizer solution 600 mg 6 mLNebulization BID budesonide (PULMICORT) 500 mcg/2 ml nebulizer suspension 500 m cg NebulizationBID RT sodium chloride (NS) flush 5-10 mL 5-10 mL IntraVENous PRN cholestyramine-aspartame (QUESTRAN LIGHT) packet 4 g 4 g Oral TID WITH MEALS dominick acalcet (SENSIPAR) tablet 60 mg 60 mg Oral DAILY lamoTRIgine (LaMICtal) tablet 50 mg 50 mg Per G Tube BID multivitamin (ONE A DAY) tablet 1 Tab 1 Tab Per G Tube KYLEIGH Y pantoprazole (PROTONIX) granules for oral suspension 40 mg 40 mg Per G TubeACB v alproic acid (as sodium salt) (DEPAKENE) 250 mg/5 mL (5 mL) oral solution 750mg 750 mg Oral BID ALPRAZolam (XANAX) tablet 0.5 mg 0.5 mg Per G Tube QHS 0.9% sodium chlo ride infusion 50 mL/hr IntraVENous CONTINUOUS acetaminophen (TYLENOL) solu tion 650 mg 650 mg Oral Q4H PRN heparin (porcine) injection 5,000 Units 5,000 U nits SubCUTAneous Q12H influenza vaccine 2018- (65 yrs+)(PF) (FLUZONE HIGH-DOSE ) injection 0.5 mL0.5 mL IntraMUSCular PRIOR TO DISCHARGE albuterol-ipratropium (DUO -NEB) 2.5 MG-0.5 MG/3 ML 3 mL Nebulization Q6H RT piperacillin-tazobactam (ZOSYN) 3.375 g in 0.9% sodium chloride (MBP/ADV) 100mL MBP 3.375 g IntraVENous [id number] ment/Plan:Hospital Problems Date Reviewed: 01/12/2019 Codes Class Noted POA Ac manzanita respiratory failure with hypoxia (HCC) ICD-10-CM: J96.01ICD-9-CM: 518.81 2018 Unknown Pneumonia involving right lung ICD-10-CM: J18.9ICD-9-CM: 486 01/10/2019 Unknown Hyponatremia ICD-10-CM: E87.1ICD-9-CM: 276.1 01/10/2019 YesAsses sment:Acute Respiratory Failure with Hypercapnia and HypoxiaPneumonia likely AspirationAtelectasisDysphagia s/p surgical placed pegMentally challengedSeizureHype rparathyroidLeft ankle and pedal edema- ResolvedPlan:Continuous O2 NC/PRN Bipap per pulmonaryIV zosyn per IDNebulizersFollow culturesRestraints with mittsNutrition w ith bolus TFNutrition consultShirAmerica Downeyptember 2018Time: 9:32 PM Name Value Range Interpretation Code Description Data Harriett rce(s) Supporting Document(s ) ID Date Data Source [id number] 01/13/2019 04:01:31 PM EDT [facility] PULMONARY/ CCM- Consult NotePatient: Ivelisse Carlin Sex: male DOA: 01/10/2019Date of : 1 Age: 68 y.o. LOS: LOS: 3 daysHPI: step down.Evelio Carlin is a 68 y.o. male who has been seen for resp failure.: Evelio Carlin is a 68 y.o. male with h/o COPD, GERD, hyperparathyroidism,mental retardation, Pneumonia, pulmonary embolism, and schizophrenia whopresents to the ED via EMS for shortness of breath and wheezing. 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 Authorizing ProvidervalACYclovir (VALTREX) 1 gram ta blet Take 1,000 mg by mouth two (2) times a day.Yes Provider, Historicalacetaminophe n (TYLENOL) 325 mg suppository Insert 650 mg into rectum every four(4) hours as neede d for Fever. Yes Provider, Historicalclorazepate (TRANXENE) 3.75 mg tablet 1 Tab by Per G Tube route nightly. MaxDaily Amount: 3.75 mg. 12/30/18 Yonatan on, Mili, DOmultivitamin (ONE A DAY) tablet 1 Tab by Per G Tube route daily. 12/30/18Mili Hills DOcinacalcet (SENSIPAR) 30 mg tablet Take 2 Tabs by m outh daily. 12/30/18 Mili Hills DOlamoTRIgine (LAMICTAL) 25 mg tablet 2 Tabs by Per G Tube route two (2) times aday. 12/30/18 Mili Hills DOalbuterol-i pratropium (DUO-NEB) 2.5 mg-0.5 mg/3 ml nebu 3 mL by Nebulizationroute every six (6) hours. Every 6 hours while awake 12/30/18 Mili Hills DOalbuterol-ipratropium (DUO-NEB) 2.5 mg-0.5 mg/3 ml nebu 3 mL by Nebulizationroute every four (4) hours a s needed for Cough (wheezing, shortness of breath).12/30/18 Mili Hills DObugaston esonide (PULMICORT) 0.5 mg/2 mL nbsp 2 mL by Nebulization route two (2) timesa day. Mili Hills DObacitracin 500 unit/gram ointment Apply 1 Packet to aff ected area two (2) timesa day. Indications: minor skin infection due to bacteria, fa cial scabs 12/30/18Mili Hills DOcholestyramine-aspartame (QUESTRAN LIG HT) 4 gram packet Take 1 Packet by mouththree (3) times daily (with meals). 12/30/18 Mili Hills DOpantoprazole (PROTONIX) 40 mg granules for oral suspension 40 mg by Per G Tuberoute Daily (before breakfast). 11/28/18 Mili Hills DOvalproate ( DEPAKENE) 250 mg/5 mL syrup Take 750 mg by mouth two (2) times a day.Provider, Jazmine Thao Known AllergiesNo past surgical history on file.No family history on yoshi e.Social HistorySocioeconomic History Marital status: SINGLE Spouse name: Not on file Number of children: Not on file Years of education: Not on file Highest education level: Not on fileTobacco Use Smoking status: Never Smoker Smokeless tobacco: Never UsedSubstance and Sexual Activity Alcohol use: No Drug use: NoR eview of SystemsPertinent items are noted in the History of Present Illness.Physical Exam:Current medications:Current Facility-Administered Medications: mul tivit-folic acid-herbal 275 (WELLESSE PLUS) oral liquid 30 mL, 30 mL, PerG Tube, GABRIELE LY, Mili Hills DO, 30 mL at 01/13/19 1000 potassium, sodium phosphates (KISHA TRA-PHOS) packet 1 Packet, 1 Packet, Per GTblu, QIDReinier Shirley, DO, 1 Packe t at 01/13/19 1244 acetylcysteine (MUCOMYST) 100 mg/mL (10 %) nebulizer so lution 600 mg, 6 mL,Nebulization, BID, Krystian Monae MD, 600 mg at 01/13/19 08 27 budesonide (PULMICORT) 500 mcg/2 ml nebulizer suspension, 500 mcg,Nebulizati on, BID RT, Mili Hills DO, 500 mcg at 01/13/19 0745 sodium chloride (NS) flu sh 5-10 mL, 5-10 mL, IntraVENous, PRN, Wes Romero MD cholestyramine-a spartame (QUESTRAN LIGHT) packet 4 g, 4 g, Oral, TID WITHMEALS, Mili Hills DO , 4 g at 01/13/19 1244 cinacalcet (SENSIPAR) tablet 60 mg, 60 mg, Oral, DA PIERREReinier Shirley, DO,60 mg at 01/13/19 0919 lamoTRIgine (LaMICtal) tablet 50 mg, 50 mg, Per G Tube, BID, Mili Hills DO, 50 mg at 01/13/19 0918 hay toprazole (PROTONIX) granules for oral suspension 40 mg, 40 mg, Per GTblu, ACBReinier Shirley, DO, 40 mg at 01/13/19 0919 valproic acid (as sodium salt) (DEPAKEN E) 250 mg/5 mL (5 mL) oral [id number] mg, 750 mg, Oral, BID, Mili Hills DO, 750 mg at 01/13/19 0919 ALPRAZolam (XANAX) tablet 0.5 mg, 0.5 mg, Per G Tube, QHS, Mili Hills DO, 0.5 mg at 01/12/19 2153 0.9% sodium chloride infusion, 50 mL/hr, IntraVENous, CONTINUOUS, Mili Hills DO, Last Rate: 50 mL/hr at 01/10/19 1133, 50 mL/hr at 01/10/19 1133 acetaminophen (TYLENOL) solution 650 mg, 650 mg, Oral, Q4H PRN, Mili Hills DO heparin (porcine) injection 5,000 Units, 5,000 U nits, SubCUTAneous, Q12H,Mili Hills DO, 5,000 Units at 01/13/19 1244 influenza vaccine 2018- (65 yrs+)(PF) (FLUZONE HIGH-DOSE) injection 0.5 mL,0.5 mL, Intr aMUSCular, PRIOR TO DISCHARGE, Mili Hills DO albuterol-ipratropium (DUO -NEB) 2.5 MG-0.5 MG/3 ML, 3 mL, Nebulization, Q6HRT, Krystian Monae MD, 3 mL at 1406 piperacillin-tazobactam (ZOSYN) 3.375 g in 0.9% sodium chloride (MBP/ADV ) 100mL MBP, 3.375 g, IntraVENous, Q8H, Natasha Dudley MD, Last Rate: 25 mL/hr at1 0917, 3.375 g at 01/13/19 0917DataVisit VitalsBP 107/64 (BP 1 Location: Right ar m, BP Patient Position: At rest)Pulse 72Temp 98.3 F (36.8 C)Resp 20Ht 5' 2" (1.575 m)Wt 56.7 kg (125 lb)SpO2 98%BMI 22.86 kg/m Intake and Output:Date 01/12/19 0700 - 1 59 01/13/19 0700 - 01/14/19 0659Shift [id number] 6283-1890 24 Hour To krystian [id number] 0681-5603 24 Hour TotalINTAKENG/GT 100 100 Water Flush V olume (mL) (PEG/Gastrostomy Tube) 100 100Shift Total(mL/kg) 100(1.8) 100(1.8) OUTPUTUrine(mL/kg/hr) 450(0.7) 200(0.3) 650(0.5) Urine 450 200 650Shift Total(m L/kg) 450(8.2) 200(3.5) 650(11.5)NET -350 -200 -550Weight (kg) 55.1 56.7 56.7 56.7 56.7 56.7Pulse OX:SpO2 Readings from Last 6 Encounters:01/13/19 98%12/30/18 96%11/27 91%09/26/15 96%@LASTSAO2(6)@PHYSICAL EXAM:General: Lethargic,responding.He ad: Normocephalic, without obvious abnormality, atraumatic.Eyes: Conjunct ivae clear, anicteric sclerae. Pupils are equalNose: Nares normal. No drainage or sinus tenderness.Throat: Lips, mucosa, and tongue normal. No ThrushNeck: Supp le, symmetrical, no adenopathy, thyroid: non tender no carotid bruit and no JVD.Back : Symmetric, No CVA tenderness.Lungs: Scattered rhonchi,Chest wall: No tender ness or deformity. No Accessory muscle use.Heart: Regular rate and rhythm, n o murmur, rub or gallop.Abdomen: Soft, non-tender. Not distended. Bowel sounds normal. No massesExtremities: Extremities normal, atraumatic, No cyanosis. No deepthi ma. No clubbingSkin: Texture, turgor normal. No rashes or lesions. Not Jaund icedLymph nodes: Cervical, supraclavicular normal.Psych: Good insight. Not depres sed. Not anxious or agitated.Neurologic: EOMs intact. No facial asymmetry. No aph greg or slurred speech.Most recent labs:Recent Labs 01/12/1904WBC 5.2 4.9 6.9HGB 11.0* 10.8* 10.4*HCT 33.9* 33.2* 31.9*PLT 262 246 221Recent Labs 01/13/1904NA 134* 137 133*K 3.6 3.8 4. 2CL 95* 99 96*CO2 35* 36* 32GLU 93 99 71*BUN 6* 10 9CREA 0.35* 0.40* 0.34*CA 8.7 8.8 9.1MG 1.8 1.6 2.1PHOS 2.5 2.2* 2.8ALB 1.9* 1.9* 2.0*No results for input(s): PH, PC O2, PO2, HCO3, FIO2 in the last 72 hours.ABG:No results for input(s): PH, P CO2, PO2, HCO3, FIO2 in the last 72 hours.Cultures:No results found for: [employer] SLab ResultsComponent Value Date/Time Culture result: NO GROWTH 1 DAY 01/10/2019 08:58 AM Culture result: NO GROWTH 3 DAYS 01/10/2019 07:55 AM Culture result: NO G ROWTH 3 DAYS 01/10/2019 07:40 AM Culture result: NO GROWTH 5 DAYS 12/29/2018 11:2 3 AM Culture result: NO GROWTH 5 DAYS 12/29/2018 11:00 AM Culture result: 10,0 00 to 50,000 COLONIES/mL KLEBSIELLA PNEUMONIAE (A)12/29/2018 11:00 AM Cultur e result: 50,000-100,000 COLONIES/mL PSEUDOMONAS AERUGINOSA (A)12/29/2018 11: 00 AM Culture result: (A) 12/29/2018 11:00 AM 10,000 to 50,000 COLONIES/mL STAPHYLOCO CCUS EPIDERMIDIS Culture result: NO GROWTH 2 DAYS 12/24/2018 09:45 AM Culture result: NO GROWTH 5 DAYS 12/23/2018 12:00 PM Culture result: NO GROWTH 5 DAYS 12/23/2018 11:4 0 AM Culture result: NO GROWTH 4 DAYS 12/19/2018 12:30 PM Culture result: NO G ROWTH 4 DAYS 12/19/2018 12:30 PM Culture result: NO GROWTH 1 DAY 12/12/2018 08:04 PM Culture result: NO GROWTH 5 DAYS 12/12/2018 07:40 PM Culture result: NO G ROWTH 5 DAYS 12/12/2018 07:40 PM Culture result: NO GROWTH 2 DAYS 11/20/2018 09:0 0 AM Culture result: NO GROWTH 5 DAYS 11/07/2018 08:10 PM Culture result: NO G ROWTH 5 DAYS 11/07/2018 08:00 PMImages:Cta Chest W Or W Wo ContResult Date: 11/09/19 19Examination: CTA Chest ? PE angiography History: Hypoxia; rule out pneumoniavers us pulmonary embolism Priors: None Technique: Low-dose, multiplanar,helica l CTA chest was performed with bolus IV injection from lung apices tobases. 3D- reformatted images were obtained and reviewed on a dedicated viewingworkstation and di rectly supervised. Contrast: A total of 71 mL of Isovue-370was administered intravenou sly for this procedure. Findings: No evidence ofpulmonary embolism is seen. T here is decreased size of the right hemithorax fromchronic scarring and retr action with mediastinal shift left to right.Additional area of consolidation i s seen in the right lower lobe and suggestssuperimposed pneumonia with subs egmental atelectasis. Subsegmental atelectasisis also noted in the left jorge g base, with pleural parenchymal scarring. Lowlung volumes are seen. No pneumothora x seen. Aorta normal in caliber withoutaneurysm or dissection. Mediastin um no adenopathy. Mediastinal shift is seen inthe left and right as a result of chr onic changes in the right hemithorax.Heart shows no chamber enlargement or pericard ial effusion. No acute fracturesseen in the bony thorax, sternum, manubrium and rib cage. Multiple compressiondeformities are seen in the mid and lower thoracic spine , with superimposedspondyloarthropathy. Cannot exclude acute fracture.Impression : No evidence of pulmonary embolism Right lower lobe pneumoniasuggested. Incidenta l scarring and retraction in the right hemithorax fromremote/chronic inflammato ry disease and/or trauma. Bibasilar subsegmentalatelectasis. Report Electron ically Signed By: Pawel Zafar M.D. -11/08/2018 12:40 AMXr Chest PortResult D ate: 11/07/2018XR CHEST PORT CLINICAL INDICATION PROVIDED:. "sob." COMPARISON: . 09/26/2015.FINDINGS:. The pericardial/cardiac silhouette is enlarg ed in the transversedimension. There is no pulmonary vascular congestion or interst itial edema.Linear density in the left lung base and faint densities in the right mi d tolower lung likely represent atelectasis. There is no lobar consolidation oreffusi on. There is no pneumothorax.IMPRESSION:. Bilateral lower lung atelectasis. No donna dence of consolidation oreffusion.Assessment/PlanActive Problem s: Acute respiratory failure with hypoxia (HCC) (01/10/2019) Pneumonia involving r ight lung (01/10/2019) Hyponatremia (01/10/2019) Acute resp failure combined, pneumonia acute copd exacerbation pe ruled out.PLAN,Monitoring,bipap prn for resp d istressIvabx as per id,Steroid nebbipap prn and at night.Neb,feeding started.D/w mason sing staff.Stella Hamilton MDOct2018The billing code submitted [facility] this evaluation also includes thetime to review patient's prior record s, communicate with the physician team,obtain corroborating data, and discuss the risk and benefits of the proposedmanagement plan with the patient and their family >30 mi nutes. Name Value Range Interpretation Code Description Data Harriett rce(s) Supporting Document(s ) ID Date Data Source [id number] 01/13/2019 07:39:53 AM EDT [facility] Bedside and Verbal shift change report g iven to Chantal Alan RN (oncomingnurse) by Marni Regalado RN (offgoing nurse). Re port included the followinginformation SBAR and Kardex. Name Value Range Interpretation Code Description Data [facility] rce(s) Supporting Document(s ) ID Date Data Source [id number] 01/13/2019 07:42:35 AM EDT [facility] Name Value Range Interpretation Description Data Sup porting Code Source(s) Document(s ) Sodium 134 136-145 Below low normal [facility] [Moles/volume] mmol/L [facility] in Serum or Hospital Plasma Potassium 3.6 3.5-5.1 [facility] [Moles/volume] mmol/L [facility] in Serum or Hospital Plasma Chloride 95 98-107 Below low normal [facility] [Moles/volume] mmol/L [facility] in Serum or Hospital Plasma Carbon 35 21-32 Above high normal [facility] dioxide, total mmol/L [facility] [Moles/volume] Hospital in Serum or Plasma Anion gap in 8 mmol/L 10-20 Below low normal [facility] - Go od Serum or [facility] Plasma Hospital Glucose 93 mg/dL 74-106 [facility] [Mass/volume] [facility] in Serum or Hospital Plasma Urea nitrogen 6 mg/dL 7-18 Below low normal [facility] - G ood [Mass/volume] [facility] in Serum or Hospital Plasma Creatinine 0.35 0.70-1.3 Below low normal [facility] [Mass/volume] mg/dL 0 [facility] in Serum or Hospital Plasma Glomerular >60 [facility] Good filtration [facility] rate/1.73 sq M Hospital predicted among blacks [Volume Rate/Area] in Serum or Plasma by Creatinine-bas ed formula (MDRD) Glomerular >60 [facility] - Good filtration [facility] rate/1.73 sq M Hospital predicted among non-blacks [Volume Rate/Area] in Serum or Plasma by Creatinine-bas ed formula (MDRD) Calcium 8.7 8.5-10.1 [facility] [Mass/volume] mg/dL [facility] in Serum or Hospital Plasma Phosphate 2.5 2.5-4.9 [facility] [Mass/volume] mg/dL [facility] in Serum or Hospital Plasma Albumin 1.9 g/dL 3.5-4.7 Below low normal [facility] [Mass/volume] [facility] in Serum or Hospital Plasma by Bromocresol purple (BCP) dye binding method ID Date Data Source [id number] 01/13/2019 07:42:35 AM EDT [facility] Name Value Range Interpretation Description Data Sup porting Code Source(s) Document(s ) Magnesium 1.8 mg/dL 1.6-2.6 [facility] [Mass/volume] [facility] in Serum or Hospital Plasma ID Date Data Source [id number] 01/13/2019 07:38:36 AM EDT [facility] Name Value Range Interpretation Description Data Sup porting Code Source(s) Document(s ) Leukocytes 5.2 K/uL 4.8-10.6 [facility] - [#/volume] in Good Blood by [facility] Automated count Hospital Erythrocytes 3.32 4.70-6.0 Below low normal [facility] - [#/volume] in M/uL 0 [facility] Blood by [facility] Automated count Hospital Hemoglobin 11.0 14.0-18. Below low normal [facility] - [Mass/volume] in g/dL 0 [facility] Blood [facility] Hematocrit 33.9 % 42.0-52. Below low normal [facility] - [Volume 0 Good Fraction] of [facility] Blood by Hospital Automated count Erythrocyte mean 102.1 FL 81.0-94. Above high normal [facility] - corpuscular 0 Good volume [Entitic [facility] volume] by Hospital Automated count Erythrocyte mean 33.1 PG 27.0-35. [facility] - corpuscular 0 Good hemoglobin [facility] [Entitic mass] Hospital by Automated count Erythrocyte mean 32.4 30.7-37. [facility] - corpuscular g/dL 3 Good hemoglobin [facility] concentration Hospital [Mass/volume] by Automated count Erythrocyte 16.8 % 11.5-14. Above high normal [facility] - distribution 0 Good width [Ratio] by [facility] Autom[facility] count Hospital Platelets 262 K/uL 130-400 [facility] - [#/volume] in [facility] Blood by [facility] Autom[facility] count Hospital Platelet mean 8.8 FL 9.2-11.8 Below low normal [facility] - volume [Entitic Good volume] in Blood [facility] by Automated Hospital count Segmented 67 % 48.0-72. [facility] - neutrophils/100 0 Good leukocytes in [facility] Lymphocytes/100 22 % 18.0-40. [facility] - leukocytes in 0 [facility] Monocytes/100 8 % 2.0-12.0 [facility] - leukocytes in [facility] Blood [facility] Eosinophils/100 3 % 0.0-7.0 [facility] - leukocytes in [facility] Blood [facility] Basophils/100 0 % 0.0-3.0 [facility] - leukocytes in [facility] Segmented 3.5 K/UL 1.5-6.6 [facility] - neutrophils Good [#/volume] in [facility] Lymphocytes 1.1 K/UL 1.5-3.5 Below low normal [facility] - [#/volume] in [facility] Blood [facility] Monocytes 0.4 K/UL 0.0-1.0 [facility] - [#/volume] in [facility] Eosinophils 0.2 K/UL 0.0-0.7 [facility] - [#/volume] in [facility] Basophils 0.0 K/UL 0.0-0.1 [facility] - [#/volume] in [facility] Differential [facility] - cell count Good method - [facility] Immature 0 % 0.0-2.0 [facility] - granulocytes/100 [facility] leukocytes in [facility] by [facility] Automated count ID Date Data Source [id number] 01/12/2019 07:18:19 PM EDT [facility] Progress NotePatient: Evelio Carlin Sex: male DOA: 01/10/2019Date of : 1950 Age: 68 y.o. :[id number]:Reyes Carlin is 68 y.o. male more awake and alert. He is appearingcomfortable. He is pulling off his nasal canula. The RN is requestingrestraints.Will order Mitts fo r restraints.Pt Presented to the ED from [facility] with medical history of Dysphagia , s/psurgical placement of peg on 11/17/18, severe intellectual disability, Chronic respiratory failure, large Hiatal Hernia, hyperparathyroid unspecified,personal h/ o pulmonary embolus, anxiety disorder, kyphosis and schizophrenia. Ptis nonverb al at baseline and is unable to provide a history.Per long-term transfer record s, at 6 AM, patient was found Hypoxic, with O2SAT of 87 % on O2 NC 87 % on 4 LPM, h eart rated 111 BPM, Blood Pressure of 105/73, respiratoryrate of 30 andaudible wheeze. Nebulizer treatment Pt was afebrile He was placed on a NRMwith imp roved O2 SAT to 95 % , his respiratory rate was 30 and he was afebrile.The long-term transfer record reporting that the resident removes nasalcanula at times.In the ED pt appearing lethargic and having mild respiratory distress.CXR showing nelson ziness at the right lung base due to small effusion withatelectasis/infiltrate. No confluent left lung process is seen. Sodium tkcke226.ABG with pH 7.46/53/66/38 O2 SA T 95 % on NC 4 LPM.The patient with initial encounter diagnosis of Respiratory distr ess, Sepsis,due to unspecified organism, Hypoxia, Lethargy and Aspiration Pneumon ia of rightlung, unspecified aspiration pneuminia type, unspecified part of lung .The patient received Tylenol, IV vancocin and zosyn and IV fluids.The patient was seen and examined in the ED, he is lethargic and tachypneic withRR 30. 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 Pupils are equalNeck : Supple, symmetrical, no adenopathy, no carotid bruit and no JVD.Lungs: Increa sed air entry right anterior lung. Good air entry left lung. NoWheezing or Rhonchi. No rales.Chest wall: No Accessory muscle use.Heart: Regular rate and rhythm, n o murmur, or rub.Abdomen: Positive peg, Soft, non-tender. Not distended. Bowel sounds normal.No massesExtremities: Extremities normal, atraumatic, No cyano sis. Trace left ankle andpedal edema. No clubbingSkin: Warm and dry. No rash es or lesions. Not JaundicedLymph nodes: Cervical, supraclavicular normal.Psych: Not anxious or agitated.Neurologic: EOMs intact. No facial asymmetry. No aphasia or slurred speech.Normal strength, Alert and AwakeIntake and Output:Current Shift: N o intake/output data recorded.Last three shifts: 01/10 701 - 01/11 1900In: 2971 [I.V.:2601]Out: -Lab/Data Reviewed:Recent Days:Recent Labs WBC 6.9 10.4HGB 10.4* 12.0*HCT 31.9* 36.2*PLT 221 233Recent Labs 8 01/10/1907NA 133* 133* -- 126*K 4.2 4.6 -- 4.5CL 96* 96* -- 87*CO2 32 32 39* 38*GLU 71* 124* -- 114*BUN 9 7 -- 7CREA 0.34* 0.41* -- 0.48*CA 9.1 8.8 -- 9.4MG 2.1 -- -- --PHOS 2.8 3.0 -- --ALB 2.0* 2.0* - - 2.3*TBILI -- -- -- 0.2SGOT -- -- -- 13*ALT -- -- -- 12*INR -- -- -- 1.0Recent Labs PH 7.46*PCO2 53*PO2 66*HCO3 38*Xr Chest Sng l VResult Date: 12/25/2018Portable chest x-ray. PRIOR EXAM: X-ray 12/18/2018 HISTOR Y: Pneumonia FINDINGS:The heart is normal in size. The mediastinum and pulmonary vess els areunremarkable. There is a small right pleural effusion.. A tube projected over the left upper quadrant of the abdomen..IMPRESSION: Small right pleural effusion.Ct Chest Wo ContResult Date: 01/10/2019CT CHEST WO CONT Clinical data: evaluation of pneumonia rt lung. Priors:12/18/2018 Technique: CT scan of th e chest was performed from the thoracic inletto below the diaphragm without admi nistration of intravenous contrast. Theacquisition data was reviewed in the axial, sagittal and coronal plane.Utilizing silver holloware assembler algorithm the examination w as performed to optimizeimaging quality by utilizing the lowest possible radiation dose. Findings: Thereis no evidence of pathological lymphadenopathy within the mediastinum, bilateralhilar and bilateral axillary location. There is a 1.8 cm no dule along the rightwall of the trachea at the level of the thoracic inlet (best se en on image 13ofseries 2) not seen on the prior study. This may be due to a mucou s plug. Noadditional endotracheal or endobronchial lesion is noted.Normal hea rt size.Coronary artery calcifications noted. Atherosclerotic thoracic aorta withouta neurysmal dilatation. Evaluation lung windows demonstrates patchy right lowerlobe lung infiltrate. There is associated small right pleural effusion similarto prior. There is also small left pleural effusion with underlying passiveatelectasis slightly d ecreased from the prior study. No new lung pathology isobserved. Included upper abd ominal organs: No significant pathology is observedwithin the visualized upper abdo wanda organs.IMPRESSION: Small bilateral pleural effusion. Right effusion is sim ilar toprior study. Left effusion slightly decreased in size. Patchy right lungopa cities which may be due to pneumonia similar to previous examinations. 1.8cm nodule along the right lateral wall of the trachea at the level of thethoracic inlet not ob served on the prior study and can be due to a mucous plug.Ct Chest Wo ContResult Date: 12/18/2018Referring Physician: KRYSTIAN MONAE Patient Name: EVELIO CARLIN THIS IS AFINAL REPORT FROM [facility] DATE OF SERVICE: 2018-12-18 01:22:40 IMAGES:[id number] EXAM: CT CHEST WO CONTRAST HISTORY: .. Right lower lobe atelectasis..TECHNIQUE: Helic al axial imaging from the thoracic inlet through the adrenalglands without contra st. Sagittal and coronal reconstructions were obtained.COMPARISON: CT chest without co ntrast of 12/13/2018. FINDINGS: .. Evaluationremains limited due to lack of IV contrast and patient positioning. The imagedthyroid gland remains atrophic. Th e aorta remains normal in caliber.Atherosclerotic calcifications a re again seen in the aorta. There is againcardiomediastinal shift towards the right. The heart remains normal in size andno pericardial effusion is noted. No obvious lymphadenopathy seen on thisunenhanced scan. No pneumothorax is noted. Since the prior exam there is beenincrease in bilateral pleural effusi ons with associated consolidations. Acalcified granuloma is again seen in th e right lower lobe. The imaged upperabdomen does not demonstrate any gross acute maggy nges. Osteopenia is again noted.Degenerative changes again seen in the imaged spine. Old healed right posteriorlower rib fractures are again seen.IMPRESSION: .. Limited s tudy demonstrating increase in bilateral pleuraleffusions with associated consoli dations with persistent cardiomediastinal shifttowards the right. Stable findings as noted above.. One or more of the followingdose reduction techniques were used: automated exposure control, adjustment ofthe mA and/or kV according to patient size, use of iterative reconstructivetechnique. THIS DOCUMENT H BEEN ELECTRONICALLY SIGNED Kamran Gillette MD 12/18/2018 04:49 GINA Verde Please call [facility] [phone] with questions. This report was electronically signed by: Tala MENDEZ 12/18/2018 04: 50 AMCt Chest Wo ContResult Date: 12/13/2018History: Respiratory difficulty . FINDINGS: CT scanning of the chest wasperformed helically from the lung api martine to the upper abdomen withoutintravenous contrast material. Sagittal and coronal reconstructed images aresubmitted. Scanning was performed utilizing dose lowering te chniques and iscompared to the prior study of 11/08/2018. The study is quite limited by patientpositioning. Evaluation of thoracic vascular structures is limited withoutin travenous contrast material does not reveal evidence of aneurysmal dilatationor defi nite CT evidence of dissection. Coronary artery calcification is seen.There is mi nimal calcification of the aortic arch. There is minimalcalcification of the descendin g thoracic aorta. There is no definite evidence ofany pathologically enlarged l ymph node in the visualized portions of themediastinum or axillae. Evaluation of pulmonary parenchymal structures revealssome atelectatic change in the right upper lo be. There is a small left pleuraleffusion as well as left basilar atelectatic change. There is some patchyopacity within the right middle lobe and right lower lobe which c ould also beinfiltrative in nature. Limited evaluation of upper abdominal structures isunremarkable. There is deviation of mediastinal structures to the right. Thi scould be as result of atelectatic change within the right lung. This has beenseen previously and is unchanged.IMPRESSION: Extremely limited study by patient posit ioning. Deviation ofmediastinal structures to the right as has been seen on prior stud ies. Leftpleural effusion. Bilateral infiltrates and atelectasis, greater on the rightthan the left.Cta Up Ext Lt W ContResult Date: 12/18/2018History: Arm cl audication. FINDINGS: CTA of the left upper extremity wasperformed helically from le ricky of the shoulder through the fingers after theintravenous administration of 119 cc of Isovue. Sagittal, coronal, and 3-Dreconstructed images obtained on an Realtime[employer] workstation are submitted. Noprior studies are available for comparison. Th e left subclavian artery is widelypatent. It is continuous with a widely patent left axillary artery. The axillaryartery is continuous with a widely patent left bra chial artery. The brachialartery bifurcates into a radial and ulnar artery just belo w the elbow. From thispoint distally streak artifact from patient positioning limits evaluation.However, the ulnar artery appears widely patent to the wrist. The radial a rteryis less well opacified but does appear patent to the wrist as well. Anintraosse ous artery also appears patent although it is poorly visualized aswell. The digital ar teries are not visualized on this study. There arebilateralpleural effusions note d both of which are moderate to large. Theeffusion on the left one is larger th an the right. Bibasilar atelectatic changethroughout much of the lower lobes is seen. There is a significant shift ofmediastinal structures to the right. T he liver is decreased in attenuationcompatible with fatty infiltr ation. The spleen is unremarkable. The adrenalglands are normal in appearance. The pancreas is grossly normal as is thegallbladder. A gastrostomy tube is no mikel in situ. The kidneys are unremarkable.There is a midline abdomina l wall hernia containing large and small bowel aswell as mesentery without eviden ce of obstruction. There is some presacralthickening and possibly some fr ee fluid noted. The patient is status post ORIFof the left hip with metallic hardwa re in situ.IMPRESSION: Patent left upper extremity arterial vessels although eval uationdistally is limited. Bilateral pleural effusions and bibasilar atelectasis.Shif t of mediastinal structures to the right.Ct Abd Pelv Wo ContResult Date: 12/21/2018His tory: ? Maturity of g-tube tract Technique: CT of the abdomen and pelvis wasperforme d from the dome of the diaphragm to the pubic symphysis without oral orintravenous con trast with dose lowering techniques. Sagittal and coronalreconstructions were performe d. Evaluation of solid abdominal viscera iscompromised by by the lack of intraven ous contrast. Evaluation of the bowelloops is compromised lack of oral contrast. All C T scans at this facility areperformed using dose optimization technique as appropria te to a performed exam,to include automated exposure control, adjustment of the mA a nd/or kV accordingto patient size (including appropriate matching first site-specific examinations), or use of iterative reconstruction technique. Comparison: CT scanof the chest performed 12/19/18 Findings: There is a small right pleural effusionw ith adjacent atelectasis. There is minimal left pleural fluid with adjacentatelecta sis. There is a pigtail catheter again identified on the left. The exactlocatio n of this catheter is difficult to ascertain benefits above the diaphragmto below the diaphragm. On today's study the tip appears to be located below thediaphragm. There is a small right pleural effusion with adjacent atelectasis.There is a G-tube i dentified in the stomach. The liver, gallbladder, spleen,pancreas, kidneys an d adrenal glands are unremarkable. No abdominal, pelvic oringuinal lymphadenop athy is identified. No free intraperitoneal fluid is noted.There is a ventral wall h ernia containing loops of what appear to be small bowelhowever are difficult to foll ow. There is mild perirectal stranding andpresacral edema correlate clinically. No dilated loops of bowel are identified.There is mild diverticulosis of the colon. The prostate, bladder and seminalvesicles appear unremarkable. The re are streak artifact obscuring portions ofthe pelvis due to a left hip ORIF. The re is subcutaneous gas identified alongthe right lower anterior pelvic wall.IMPRESS ION: There is a G-tube identified in the stomach. There is a tailcatheter identif ied on the left. The tip appears to be located below thediaphragm although is d ifficult to assess on CT. There is a small residualamount of pleural fluid as well as atelectasis along the left diaphragm. Thereis perirectal stranding and presacr al edema.Ct Thoracentesis Insrt Chest TubeResult Date: 12/19/2018History: Pleura l effusion. PROCEDURE: After being informed of the risks,benefits, and potential alt ernatives procedure informed consent was obtained.The patient was placed on the t able in the ulrvk-looy-lagv decubitus position.CT scanning was performed locat ion was chosen over the left flank. However, dueto the significant amount of patient motion and breathing motion was difficultto accurately assess a location for percuta neous paracentesis. Therefore, thiswas performed manually. After the chosen reg ion was prepped and draped in thenormal sterile fashion using maximum sterile ba rrier technique a lidocaineneedle was placed in the skin. This appeared to be in good position. Lidocainewas then used to anesthetize the skin and subcutaneous ti ssues in this location.Attempts were made to pass an 8 Congolese pigtail catheter throug h this location.However, patient continuous motion was significant as well as excess ivebreathing during the procedure. The catheter was placed at the same interspa ceas well as marked on the prior CT sequence however, due to the excessive patientmot ion the catheter was far more inferior within the chest that on the priorsequences. Th e catheter appeared to enter the hemiabdomen on the left from theleft chest. The cath eter was then pulled back to position where clear yellowfluid was aspirated. It was then sewn in position However, It appeared tomigrate forward and on the CT scanning appeared to again transgress thediaphragm. It was therefore pulled back to a point where only a clear fluid wasaspirated and respiratory variation was noted within t he tube. It was then sewnin position using 2-0 silk sutures. FINDINGS: Initial CT s debora revealed amoderate left pleural effusion. Attempts to nancy an adequate l ocation forpercutaneous thoracentesis were quite limited due to excessive patient m otionand breathing throughout the procedure. A location that appear to be a safelocat ion was marked. However, when the catheter was placed in this sameinterspace as wel l as marked the catheter appeared to be far more inferiorwithin the hemithorax than that seen previously. It appeared to enter the lefthemithorax inferiorly and transg ress the diaphragm with no evidence pathologicsequela. Therefore, it was pul led back into the pleural space for adequatedrainage. 130 cc of lightly bloo d-tinged fluid was aspirated. The catheter wasattached to a Pleur-evac and wall suc tion.IMPRESSION: Left-sided thoracentesis described above.Xr Chest PortResult Date : 01/10/2019XR CHEST PORT Clinical data: Sepsis Priors: 12/29/2018. Findings: Exam ination iscompromised due to limited inspiration and patient rotation. Heart size isunchanged. Haziness seen at the right lung base can be due to small effu sionwith atelectasis/infiltrate. No confluent left lung process is seen. No evidence of CHF.IMPRESSION: Limited study. Suspect right lung base process which ma y be due tosmall effusion with atelectasis/infiltrate.Xr Chest PortResu lt Date: 12/29/2018History: leukocytosis Technique: Portable chest x-ray 9 11:01 AMComparison: 12/25/2018. FINDINGS: There is a right lower lobe infiltrate o ratelectasis which is increased since prior exam. There is poor inspiration.There is a small left pleural effusion. The exam is rotated. Evaluation of thecardiac silhou ette is limited by projection. The visualized osseous structuresappear unremarkable.IM PRESSION: There is a right lower lobe infiltrate or atelectasis which isincrea sed since prior exam.Xr Chest PortResult Date: 12/18/2018Portable chest x-ray. PRIO R EXAM: 12/12/2018 and 11/25/2018 HISTORY: Pneumonia andpleural effusions FINDINGS: The heart is normal in size. The mediastinum andpulmonary vessels are unremarkable. T here is haziness within the lung basesbilaterally... The bony structures are intact.IMPRESSION: Haziness within the lung bases bilaterally that could repres entsmall pleural effusions and/or subsegmental atelectasis. Similar findin gs wereseen on prior exams.Duplex Upper Ext Venous LeftResult Date: 12/26/2018DUPLEX UPPER EXT VENOUS LEFT Clinical Data: Arm swelling, DVT suspectedFindings: The vis ualized segments of the left upper extremity venous circulationfrom the level of the subclavian vein to the brachial vein is compressible andshows normal phasic flow without an intraluminal thrombus. In addition, theinternal jugular vein and t he basilic vein is also patent. Extremely limitedexam because the patient was unab le to cooperate and this was done in a portablefashion.IMPRESSION: No evidence of deep vein thrombosis within the visualized left upperextremity venous circulation. Limited study.Duplex Lower Ext Venous BilatResult Date: 01/11/2019HISTORY: agustina ling to lower extremities TECHNIQUE: Bilateral lower extremityvenous Doppler ultrasound Using real time and color-flow Doppler as well asspectral analysis and ultrasound examination was performed of the lowerextremities bilaterally. FINDINGS: On the right side the common femoral vein,superficial femoral vein along its entire course, as well as popliteal vein allappeared widely patent, were easily c ompressible, showed normal spontaneousflow. The calf veins were not visualized due t o body habitus. On the left sidethe common femoral vein, superficial femoral vein a long its entire course, aswell as popliteal vein all appeared widely patent, were ea sily compressible, andshowed normal spontaneous flow. The calf veins were no t visualized due to bodyhabitus.IMPRESSION: Normal bilateral lower extremity venous Doppler ultrasound with noevidence of deep vein thrombosis.Medications reviewedCurr ent Facility-Administered MedicationsMedication Dose Route Frequen cy budesonide (PULMICORT) 500 mcg/2 ml nebulizer suspension 500 mcg Nebulizati onBID RT sodium chloride (NS) flush 5- 10 mL 5-10 mL IntraVENous PRN cholestyramine- aspartame (QUESTRAN LIGHT) packet 4 g 4 g Oral TID WITH MEALS cinacalcet (SENSIPA R) tablet 60 mg 60 mg Oral DAILY lamoTRIgine (LaMICtal) tablet 50 mg 50 mg Per G Tube BID multivitamin (ONE A DAY) tablet 1 Tab 1 Tab Per G Tube DAILY pa ntoprazole (PROTONIX) granules for oral suspension 40 mg 40 mg Per G TubeACB v alproic acid (as sodium salt) (DEPAKENE) 250 mg/5 mL (5 mL) oral solution 750mg 750 mg Oral BID ALPRAZolam (XANAX) tablet 0.5 mg 0.5 mg Per G Tube QHS 0.9% sodium chlo ride infusion 50 mL/hr IntraVENous CONTINUOUS acetaminophen (TYLENOL) solu tion 650 mg 650 mg Oral Q4H PRN heparin (porcine) injection 5,000 Units 5,000 U nits SubCUTAneous Q12H influenza vaccine (65 yrs+)(PF) (FLUZONE HIGH-DOSE ) injection 0.5 mL0.5 mL IntraMUSCular PRIOR TO DISCHARGE albuterol-ipratropium (DUO -NEB) 2.5 MG-0.5 MG/3 ML 3 mL Nebulization Q6H RT piperacillin-tazobactam (ZOSYN) 3.375 g in 0.9% sodium chloride (MBP/ADV) 100mL MBP 3.375 g IntraVENous [id number] ment/Plan:Hospital Problems Date Reviewed: 01/11/2019 Codes Class Noted POA Ac manzanita respiratory failure with hypoxia (HCC) ICD-10-CM: J96.01ICD-9-CM: 518.81 2018 Unknown Pneumonia involving right lung ICD-10-CM: J18.9ICD-9-CM: 486 01/10/2019 Unknown Hyponatremia ICD-10-CM: E87.1ICD-9-CM: 276.1 01/10/2019 YesAsses sment:Acute Respiratory Failure with Hypercapnia and HypoxiaPneumonia likely AspirationAtelectasisDysphagia s/p surgical placed pegMentally challengedSeizureHype rparathyroidLeft ankle and pedal edemaPlan:Continuous O2 NC/PRN Bipap per pulmonaryIV zosyn per IDNebulizersFollow culturesF/u duplex venous lower extremit iesRestraints with mittsNutrition with bolus TFNutrition consultNita Gonzalez 2018Time: 11:48 PM Name Value Range Interpretation Code Description Data Harriett rce(s) Supporting Document(s ) ID Date Data Source [id number] 01/12/2019 07:15:38 PM EDT [facility] Bedside, Verbal and Written shift change report given to marni (oncoming nurse)by nakul lyngoing nurse). Report inc luded the following information SBAR,Kardex, Intake/Output, MAR, Recent Results, Med Rec Status and Cardiac Rhythm. Name Value Range Interpretation Code Description Data Harriett rce(s) Supporting Document(s ) ID Date Data Source [id number] 01/12/2019 02:43:44 PM EDT [facility] - [facility] ID Progress Note01/12/2019Subjective:Siri ent with mental retardation,recurrent aspiration pneumonia.Non verbal,unable t o provide history.AfebrileCultures negative so far.Objective:Vitals:Patient Vitals f or the past 24 hrs: BP Temp Pulse Resp SpO2 Rikgao44/30/19 1126 91/62 98.9 F (37.2 C) 79 18 96 % -01/12/19 0919 - - - - 99 % -01/12/19 0724 105/62 97.4 F (36.3 C) 72 18 96 % -01/12/19 0526 - - - - - 55.1 kg (121 lb 8 oz)01/12/19 0452 - - - - 100 % -01/12/19 0425 102/60 96.8 F (36 C) 74 20 95 % -01/12/19 0108 - - - - 100 % -01/12 0011 - - - - 100 % -01/11/19 2357 100/59 96.8 F (36 C) 68 22 95 % -01/11/19 195 4 106/60 96.9 F (36.1 C) 72 18 94 % -01/11/19 1938 - - - - 95 % -01/11/19 15 44 109/46 97.4 F (36.3 C) 72 16 96 % -Tmax: Temp (24hrs), Av.4 F (36.3 C), Mi n:96.8 F (36 C), Max:98.9 F(37.2 C)Physical Exam:General: Awake non verb al cooperative, no distressNeck: Supple, symmetrical, trachea midline, no adenopa thLungs: Bilateral breath sounds with basal crackles.Heart: Regular rate and rhythm , S1, S2 normalAbdomen: Soft, non-tender. Bowel sounds normal. No masses, No orga nomegaly.+feeding tubeBack: No CVA tenderness.Extremities: Chronic lymphede ma.Pulses: 2+ and symmetric all extremities.Skin: Skin color, texture, t urgor normal. No rashes or lesionsCurrent Facility-Administered MedicationsMedicat ion Dose Route Frequency potassium, sodium phosphates (NEUTRA-PHOS) packet 1 Packet 1 Packet Per GTube QID acetylcysteine (MUCOMYST) 100 mg/mL (10 %) nebulizer so lution 600 mg 6 mLNebulization BID budesonide (PULMICORT) 500 mcg/2 ml nebu lizer suspension 500 mcg NebulizationBID RT sodium chloride (NS) flush 5-10 mL 5-10 mL IntraVENous PRN cholestyramine-aspartame (QUESTRAN LIGHT) packet 4 g 4 g Oral TI D WITH MEALS cinacalcet (SENSIPAR) tablet 60 mg 60 mg Oral DAILY lamoTRIgine (LaMIC krystian) tablet 50 mg 50 mg Per G Tube BID multivitamin (ONE A DAY) tablet 1 Tab 1 Tab Per G Tube DAILY pantoprazole (PROTONIX) granules for oral suspension 40 mg 40 mg Per G TubeACB valproic acid (as sodium salt) (DEPAKENE) 250 mg/5 mL (5 m L) oral solution 750mg 750 mg Oral BID ALPRAZolam (XANAX) tablet 0.5 mg 0.5 mg Per G Tube QHS 0.9% sodium chloride infusion 50 mL/hr IntraVENous CONTINUOU S acetaminophen (TYLENOL) solution 650 mg 650 mg Oral Q4H PRN heparin (porcine) i njection 5,000 Units 5,000 Units SubCUTAneous Q12H influenza vaccine 201 9-20 (65 yrs+)(PF) (FLUZONE HIGH-DOSE) injection 0.5 mL0.5 mL IntraMUSCular YUAN OR TO DISCHARGE albuterol-ipratropium (DUO-NEB) 2.5 MG-0.5 MG/3 ML 3 mL Nebul ization Q6H RT piperacillin-tazobactam (ZOSYN) 3.375 g in 0.9% sodium chloride (MBP/ADV) 100mL MBP 3.375 g IntraVENous Y7AWjjp:Recent Labs 01/10/1917WBC 4.9 6.9 -- 10.4HGB 10.8* 10.4* -- 12.0*PLT 24 6 221 -- 233BUN 10 9 7 7CREA 0.40* 0.34* 0.41* 0.48*SGOT -- -- -- 13*AP -- -- -- 61TBILI -- -- -- 0.2Cultures:Lab ResultsComponent Value D ate/Time Culture result: NO GROWTH 1 DAY 01/10/2019 08:58 AM Culture result: NO G ROWTH 2 DAYS 01/10/2019 07:55 AM Culture result: NO GROWTH 2 DAYS 01/10/2019 07:4 0 AMRadiology:Duplex Lower Ext Venous BilatResult Date: 01/11/2019HISTORY: swel ling to lower extremities TECHNIQUE: Bilateral lower extremityvenous Doppler ultrasound Using real time and color-flow Doppler as well asspectral analysis and ultrasound examination was performed of the lowerextremities bilaterally. FINDINGS: On the right side the common femoral vein,superficial femoral vein along its entire course, as well as popliteal vein allappeared widely patent, were easily c ompressible, showed normal spontaneousflow. The calf veins were not visualized due t o body habitus. On the left sidethe common femoral vein, superficial femoral vein a long its entire course, aswell as popliteal vein all appeared widely patent, were ea sily compressible, andshowed normal spontaneous flow. The calf veins were no t visualized due to bodyhabitus.IMPRESSION: Normal bilateral lower extremity venous Doppler ultrasound with noevidence of deep vein thrombosis.Assessment: Aspiration pneumonia. Acute hypoxic respiratory failure. Dysphagia Pleural effusion. . COPD Plan:1. Continue IV zosyn.MARICEL Beauchamprehabilitation hospital of rhode islandember 20182:42 PM Name Value Range Interpretation Code Description Data Harriett rce(s) Supporting Document(s ) ID Date Data Source [id number] 01/12/2019 01:16:25 PM EDT [facility] - [facility] RECOMMENDATIONS:Given recurrent aspirati on pneumonia, suggest continuous feeds: Osmolite 1.5 at30 mL/hr progressing towa rds goal rate of 50 mL/hr, with 100 mL free water flushq 3 hr if no IVFNUTRITION ASS ESSMENT MST Screen/ MD ConsultSubjective: RN reports pt tolerating bolus feeds. 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) Pneumonia Psychiatric disorder Pulmonary emboli (HCC) Schizophrenia (H CC)Diet Order: Osmolite 1.5 bolus q 6 hr, 100 mL free water after each bolusActive Ord ersThere are no active orders of the following types: Diet.Allergies: Patient has no known allergies.Labs:CMP:Lab ResultsComponent Value Date/Time NA 137 01/12/2019 04:33 AM K 3.8 01/12/2019 04:33 AM CL 99 01/12/2019 04:33 AM CO2 36 (H) 04:33 AM AGAP 5 (L) 01/12/2019 04:33 AM GLU 99 01/12/2019 04:33 AM BUN 10 04:33 AM CREA 0.40 (L) 01/12/2019 04:33 AM GFRAA >60 01/12/2019 04:33 AM G FRNA >60 01/12/2019 04:33 AM CA 8.8 01/12/2019 04:33 AM MG 1.6 01/12/2019 04 :33 AM PHOS 2.2 (L) 01/12/2019 04:33 AM ALB 1.9 (L) 01/12/2019 04:33 AMNutritionally Significant Meds: Questran Light, MVI, Protonix, Neutra-PhosAssessmentLast 3 Re corded Weights in this Encounter 01/10/19 0736 01/12/19 0526Weight: 51.7 kg (114 l b) 55.1 kg (121 lb 8 oz)Height: 5' 2" (157.5 cm)Body mass index is 22.22 kg/m .UBW: P t unable to state %UBW: UTAIBW: 118 lb %IBW: 102Wt Readings from Last 3 Encount ers:01/12/19 55.1 kg (121 lb 8 oz)12/30/18 51.8 kg (114 lb 4.8 oz)11/27/18 53.3 kg (117 lb 6.4 oz)Nutrition Focused Physical Assessment:[] AcceptableTemple Region Mu scle Wasting-MildClavicle Region Muscle Wasting-MildOral/GI Issues:+PEGSoft BM Skin:Redness to scab in center, L lateral ankle (per flow sheet)Butch score 10Ede ma:Peripheral Vascular (WDL): Exceptions to Within Defined LimitsLLE: 1+, PittingApp etite: n/a% Meal Intake: NPO, ENNo data found.Fluid Intake:Intake/Output Summary (Last 24 hours) at 01/12/2019 1003Last data filed at 01/11/2019 1930Gross per 24 hour Intake 1200 mlOutput -Net 1200 mlNutrition Rx: 1650-1925kcal; 68-83g protein (1.25- 1.5g/kg); 1650-1925ml fluid(1ml/kcal)[based on: 30-35 Kcal/kg]% Estimated Energy Nee ds Met: 50-75%% Estimated Protein Needs Met: 50-75%% Fluid Needs Met: 50-75%Education Needs: [] Not indicated at this time [] Indicated at this timeNutrition Diagn osisIncreased protein and energy needs related to high risk skin breakdown asev idenced by butch score 10Intervention:Given recurrent aspiration pneumonia, suggest continuous feeds: Osmolite 1.5 at30 mL/hr progressing towards goal rate of 50 mL/h r (1800 kcal, 75 gm pro, 244 gmCHO, 59 gm fat, 914 mL water) and 100 mL free water flush q 3 hr if no IVFGoals:Pt to progress towards meeting >80% nutrient needs with in 3-7 daysMonitoring and EvaluationFollow EN/PN RxSkin integrityDischarge Planning :EN as recommended at SNF [x] No cultural, quaker, or ethnic dietary needs ident ified [] Cultural, quaker and ethnic food preferences identified and addressed [] Participated in care plan, discharge planning/Interdisciplinary roundsAleroge Correa RD Name Value Range Interpretation Code Description Data Hrariett rce(s) Supporting Document(s ) ID Date Data Source [id number] 01/12/2019 01:05:59 PM EDT [facility] Problem: Falls - Risk ofGoal: *Absence o f FallsDescriptionDocument Samra Fall Risk and appropriate interventions in the jhon wsheet.Outcome: Progressing Towards GoalNote:Fall Risk Interventions:Mobilit y Interventions: Communicate number of staff needed forambulation/transferMedication Interventions: Evaluate medications/consider consulting pharmacyElimination Intervent ions: Call light in reachHistory of Falls Interventions: Door open when patient un attendedProblem: Pressure Injury - Risk ofGoal: *Prevention of pressure injuryDe scriptionDocument Butch Scale and appropriate interventions in the [facility] et.Outcome: Progressing Towards GoalNote:Pressure Injury Interventions:S ensory Interventions: Assess changes in LOCMoisture Interventions: Absorbent und erpadsActivity Interventions: Pressure redistribution bed/mattress(bed type)Mob ility Interventions: Float heelsNutrition Interventions: Document food/fluid/suppl ement intakeFriction and Shear Interventions: Apply protective barrier, creams andemol lients Name Value Range Interpretation Code Description Data Harriett rce(s) Supporting Document(s ) ID Date Data Source [id number] 01/12/2019 12:25:00 PM EDT [facility] Progress NoteSIL[facility] ,[facility] Nelson Monae MD., F.C.C.P.Stella Hamilton MD., F.C.C.P. [address] [facility] [address] [place] [id number] [place] [id number] [phone]: Evelio Carlin Sex: male DOA: 01/10/2019Da te of : 1950 Age: 68 y.o. LOS: LOS: 2 daysSubjective:Mr. Gayla beltran is a 68 y.o. year old male who is being seen for RESPIRATORYFAILURE , ASPIRAT ION PNEUMONIA .HE HAVE MENTAL RETARDATION AND IS MORE AWAKE TODAY. ULTRA SOUND LEGS - NEGATIVE FOR D V TObjective:Vital Signs:Patient Vitals for the past 24 hrs : BP Temp Pulse Resp SpO2 Qonjie89/30/19 1126 91/62 98.9 F (37.2 C) 79 18 96 % -12/1619 - - - - 99 % -01/12/19 0724 105/62 97.4 F (36.3 C) 72 18 96 % -01/12/19 0 526 - - - - - 55.1 kg (121 lb 8 oz)01/12/19 0452 - - - - 100 % -01/12/19 0425 102/60 96.8 F (36 C) 74 20 95 % -01/12/19 0108 - - - - 100 % -01/12/19 0011 - - - - 100 % -01/11/19 2357 100/59 96.8 F (36 C) 68 22 95 % -01/11/19 1954 106/60 96.9 F (36.1 C) 72 18 94 % -01/11/19 1938 - - - - 95 % -01/11/19 1544 109/46 97.4 F (36.3 C) 72 16 96 % -Pulse OX:SpO2 Readings from Last 6 Encounters:01/12/19 96%12/30/18 96% 91%09/26/15 96%@LASTSAO2(6)@Physical Exam:AWAKE , LOOKS AT THE EXAMINER , MILD DYSPNEA . RR = 24 / MT General: Alert, cooperative, no distress, appears stated age. Head: Normocephalic, without obvious abnormali ty, atraumatic. Eyes: Conjunctivae/corneas clear. PERRL, EOMs intact. Nose: Nares normal. No drainage or sinus tenderness Thr oat: Lips, mucosa, and tongue normal Neck: Supple, symmetrical, trachea midline, no adenopathy,thyroid: no enlargement/tenderness/nodules, no carot id bruit and no JVD. Lungs: MILD SCATTERED WHEEZING AND RHONCHI , FEW RALES ATBASES LLL > RLL . Chest Wall: No tenderness or deformity. He art: Regular rate and rhythm, S1, S2 normal, no murmur, click,rub or NO gall op. Abdomen: Soft, non-tender. Bowel sounds normal. No masses, No organomeg edison. Extremities: Extremities normal, atraumatic, no cyanosis or edema. Pulses: 4+ bilaterally. Skin: Skin color, texture, turgor normal. No rashes or lesions. Neurologic: CNII-XII intact. No focal motor or sensory defici t.Intake and Output:Last three shifts: 01/10 1901 - 01/12 0700In: 1270 [I.V.:800]Out: -Lab Results:Recent Results (from the past 24 hour(s))RENAL FUNCTION PANEL Collecti on Time: 01/12/19 4:33 AMResult Value Ref Range Sodium 137 136 - 145 mmol/L Potass ium 3.8 3.5 - 5.1 mmol/L Chloride 99 98 - 107 mmol/L CO2 36 (H) 21 - 32 mmol/L Anion g ap 5 (L) 10 - 20 mmol/L Glucose 99 74 - 106 mg/dL BUN 10 7 - 18 mg/dL Creatinine 0.4 0 (L) 0.70 - 1.30 mg/dL GFR est AA >60 >60 ml/min/1.73m2 GFR est non-AA >60 >60 ml/ min/1.73m2 Calcium 8.8 8.5 - 10.1 mg/dL Phosphorus 2.2 (L) 2.5 - 4.9 mg/dL Album in 1.9 (L) 3.5 - 4.7 g/dLMAGNESIUM Collection Time: 01/12/19 4:33 AMResult Value Ref Range Magnesium 1.6 1.6 - 2.6 mg/dLCBC WITH AUTOMATED DIFF Collection Time: 01/12/19 4:33 AMResult Value Ref Range WBC 4.9 4.8 - 10.6 K/uL RBC 3.20 (L) 4.70 - 6.00 M/uL HGB 10.8 (L) 14.0 - 18.0 g/dL HCT 33.2 (L) 42.0 - 52.0 % MCV 103.8 (H) 81.0 - 94.0 FL MCH 33.8 27.0 - 35.0 PG MCHC 32.5 30.7 - 37.3 g/dL RDW 16.9 (H) 11.5 - 14.0 % JOCELYN TELET 246 130 - 400 K/uL MPV 9.0 (L) 9.2 - 11.8 FL NEUTROPHILS 64 48.0 - 72.0 % LYM PHOCYTES 24 18.0 - 40.0 % MONOCYTES 8 2.0 - 12.0 % EOSINOPHILS 4 0.0 - 7.0 % BASOPHI LS 0 0.0 - 3.0 % ABS. NEUTROPHILS 3.1 1.5 - 6.6 K/UL ABS. LYMPHOCYTES 1.2 (L) 1.5 - 3.5 K/UL ABS. MONOCYTES 0.4 0.0 - 1.0 K/UL ABS. EOSINOPHILS 0.2 0.0 - 0.7 K/UL ABS. BASOPHILS 0.0 0.0 - 0.1 K/UL DF AUTOMATED IMMATURE GRANULOCYTES 0 0.0 - 2.0 %ABG:R [facility] 747PH 7.46*PCO2 53*PO2 66*HCO3 38*Recent Glucose Results:Lab Re sultsComponent Value Date/Time GLU 99 01/12/2019 04:33 AM@LABAPCYTOINTERPRETAT ION@CULTURESAll Micro Results Procedure Component Value Units Date/Time CULTURE, BLOOD [[id number]] Collected: 01/10/19 0740 Order Status: Completed Specimen: Bloo d Updated: 01/12/19 1003 Special Requests: NO SPECIAL REQUESTS Culture result: NO GROWTH 2 DAYS CULTURE, BLOOD [[id number]] Collected: 01/10/19 0755 Order Status: Completed Specimen: Blood Updated: 01/12/19 1003 Special Requests: NO SPEC IAL REQUESTS Culture result: NO GROWTH 2 DAYS CULTURE, URINE [[id number]] Collecte d: 01/10/19 0858 Order Status: Completed Specimen: Urine from Clean catch Update d: 101 Special Requests: NO SPECIAL REQUESTS Culture result: NO HAIDER WTH 1 DAY CULTURE, BLOOD [[id number]] Collected: 01/10/19 0800 Order Status: Canceled Specimen: BloodImages:@[email or web address]@Xr Chest Sngl VResult Date: 12/25/2018Portable chest x-ray. PRIOR EXAM: X-ray 12/18/2018 HISTORY: Pneu monia FINDINGS:The heart is normal in size. The mediastinum and pulmonary vessels ar eunremarkable. There is a small right pleural effusion.. A tube projected overthe left upper quadrant of the abdomen..IMPRESSION: Small right pleural effusion.Ct Chest Wo ContResult Date: 01/10/2019CT CHEST WO CONT Clinical data: evaluation of pneumonia r t lung. Priors:12/18/2018 Technique: CT scan of the chest was performed from the thoraci c inletto below the diaphragm without administration of intravenous contrast. Theacquisition data was reviewed in the axial, sagittal and coronal plane.Utiliz ing silver holloware assembler algorithm the examination was performed to optimizeimaging quality by utilizing the lowest possible radiation dose. Findings: Thereis no evidence of p athological lymphadenopathy within the mediastinum, bilateralhilar and bilatera l axillary location. There is a 1.8 cm nodule along the rightwall of the trache a at the level of the thoracic inlet (best seen on image 13ofseries 2) not seen on the prior study. This may be due to a mucous plug. Noadditional endotracheal or endo bronchial lesion is noted.Normal heart size.Coronary artery calcifications note d. Atherosclerotic thoracic aorta withoutaneurysmal dilatation. Evaluation lung windows demonstrates patchy right lowerlobe lung infiltrate. There is asso ciated small right pleural effusion similarto prior. There is also small left pleural effusion with underlying passiveatelectasis slightly decreased from the prior study. No new lung pathology isobserved. Included upper abdominal organs: No significant p athology is observedwithin the visualized upper abdominal organs.IMPRESSION: Small bilateral pleural effusion. Right effusion is similar toprior study. Left effusion slightly decreased in size. Patchy right lungopacities which may be due to pneumo freddy similar to previous examinations. 1.8cm nodule along the right lateral wall of t he trachea at the level of thethoracic inlet not observed on the prior study and can be due to a mucous plug.Ct Chest Wo ContResult Date: 12/18/2018Referring Physi chaya: KRYSTIAN MONAE Patient Name: EVELIO CARLIN THIS IS AFINAL REPORT FROM [facility] DATE OF SERVICE: 2018-12-18 01:22:40 IMAGES:555 EXAM: CT CHEST WO CO NTRAST HISTORY: .. Right lower lobe atelectasis..TECHNIQUE: Helical axial im aging from the thoracic inlet through the adrenalglands without contrast. Sagittal and coronal reconstructions were obtained.COMPARISON: CT chest without co ntrast of 12/13/2018. FINDINGS: .. Evaluationremains limited due to lack of IV contrast and patient positioning. The imagedthyroid gland remains atrophic. Th e aorta remains normal in caliber.Atherosclerotic calcifications a re again seen in the aorta. There is againcardiomediastinal shift towards the right. The heart remains normal in size andno pericardial effusion is noted. No obvious lymphadenopathy seen on thisunenhanced scan. No pneumothorax is noted. Since the prior exam there is beenincrease in bilateral pleural effusi ons with associated consolidations. Acalcified granuloma is again seen in th e right lower lobe. The imaged upperabdomen does not demonstrate any gross acute maggy nges. Osteopenia is again noted.Degenerative changes again seen in the imaged spine. Old healed right posteriorlower rib fractures are again seen.IMPRESSION: .. Limited s tudy demonstrating increase in bilateral pleuraleffusions with associated consoli dations with persistent cardiomediastinal shifttowards the right. Stable findings as noted above.. One or more of the followingdose reduction techniques were used: automated exposure control, adjustment ofthe mA and/or kV according to patient size, use of iterative reconstructivetechnique. THIS DOCUMENT H BEEN ELECTRONICALLY SIGNED Kamran Gillette MD 12/18/2018 04:49 G[facility] Please call [facility] [employer] Consultant [phone] with questions. This report was electronically signed by: Tala MENDEZ 12/18/2018 04: 50 [facility] [place] Chest Wo ContResult Date: 12/13/2018History: Respiratory difficulty . FINDINGS: CT scanning of the chest wasperformed helically from the lung api martine to the upper abdomen withoutintravenous contrast material. Sagittal and coronal reconstructed images aresubmitted. Scanning was performed utilizing dose lowering te chniques and iscompared to the prior study of 11/08/2018. The study is quite limited by patientpositioning. Evaluation of thoracic vascular structures is limited withoutin travenous contrast material does not reveal evidence of aneurysmal dilatationor defi nite CT evidence of dissection. Coronary artery calcification is seen.There is mi nimal calcification of the aortic arch. There is minimalcalcification of the descendin g thoracic aorta. There is no definite evidence ofany pathologically enlarged l ymph node in the visualized portions of themediastinum or axillae. Evaluation of pulmonary parenchymal structures revealssome atelectatic change in the right upper lo be. There is a small left pleuraleffusion as well as left basilar atelectatic change. There is some patchyopacity within the right middle lobe and right lower lobe which c ould also beinfiltrative in nature. Limited evaluation of upper abdominal structures isunremarkable. There is deviation of mediastinal structures to the right. Thi scould be as result of atelectatic change within the right lung. This has beenseen previously and is unchanged.IMPRESSION: Extremely limited study by patient posit ioning. Deviation ofmediastinal structures to the right as has been seen on prior stud ies. Leftpleural effusion. Bilateral infiltrates and atelectasis, greater on the rightthan the left.Cta Up Ext Lt W ContResult Date: 12/18/2018History: Arm cl audication. FINDINGS: CTA of the left upper extremity wasperformed helically from le ricky of the shoulder through the fingers after theintravenous administration of 119 cc of Isovue. Sagittal, coronal, and 3-Dreconstructed images obtained on an Real[employer] workstation are submitted. Noprior studies are available for comparison. Th e left subclavian artery is widelypatent. It is continuous with a widely patent left axillary artery. The axillaryartery is continuous with a widely patent left bra chial artery. The brachialartery bifurcates into a radial and ulnar artery just belo w the elbow. From thispoint distally streak artifact from patient positioning limits evaluation.However, the ulnar artery appears widely patent to the wrist. The radial a rteryis less well opacified but does appear patent to the wrist as well. Anintraosse ous artery also appears patent although it is poorly visualized aswell. The digital ar teries are not visualized on this study. There arebilateralpleural effusions note d both of which are moderate to large. Theeffusion on the left one is larger th an the right. Bibasilar atelectatic changethroughout much of the lower lobes is seen. There is a significant shift ofmediastinal structures to the right. T he liver is decreased in attenuationcompatible with fatty infiltr ation. The spleen is unremarkable. The adrenalglands are normal in appearance. The pancreas is grossly normal as is thegallbladder. A gastrostomy tube is no mikel in situ. The kidneys are unremarkable.There is a midline abdomina l wall hernia containing large and small bowel aswell as mesentery without eviden ce of obstruction. There is some presacralthickening and possibly some fr ee fluid noted. The patient is status post ORIFof the left hip with metallic hardwa re in situ.IMPRESSION: Patent left upper extremity arterial vessels although eval uationdistally is limited. Bilateral pleural effusions and bibasilar atelectasis.Shif t of mediastinal structures to the right.Ct Abd Pelv Wo ContResult Date: 12/21/2018His tory: ? Maturity of g-tube tract Technique: CT of the abdomen and pelvis wasperforme d from the dome of the diaphragm to the pubic symphysis without oral orintravenous con trast with dose lowering techniques. Sagittal and coronalreconstructions were performe d. Evaluation of solid abdominal viscera iscompromised by by the lack of intraven ous contrast. Evaluation of the bowelloops is compromised lack of oral contrast. All C T scans at this facility areperformed using dose optimization technique as appropria te to a performed exam,to include automated exposure control, adjustment of the mA a nd/or kV accordingto patient size (including appropriate matching first site-specific examinations), or use of iterative reconstruction technique. Comparison: CT scanof the chest performed 12/19/18 Findings: There is a small right pleural effusionw ith adjacent atelectasis. There is minimal left pleural fluid with adjacentatelecta sis. There is a pigtail catheter again identified on the left. The exactlocatio n of this catheter is difficult to ascertain benefits above the diaphragmto below the diaphragm. On today's study the tip appears to be located below thediaphragm. There is a small right pleural effusion with adjacent atelectasis.There is a G-tube i dentified in the stomach. The liver, gallbladder, spleen,pancreas, kidneys an d adrenal glands are unremarkable. No abdominal, pelvic oringuinal lymphadenop athy is identified. No free intraperitoneal fluid is noted.There is a ventral wall h ernia containing loops of what appear to be small bowelhowever are difficult to foll ow. There is mild perirectal stranding andpresacral edema correlate clinically. No dilated loops of bowel are identified.There is mild diverticulosis of the colon. The prostate, bladder and seminalvesicles appear unremarkable. The re are streak artifact obscuring portions ofthe pelvis due to a left hip ORIF. The re is subcutaneous gas identified alongthe right lower anterior pelvic wall.IMPRESS ION: There is a G-tube identified in the stomach. There is a tailcatheter identif ied on the left. The tip appears to be located below thediaphragm although is d ifficult to assess on CT. There is a small residualamount of pleural fluid as well as atelectasis along the left diaphragm. Thereis perirectal stranding and presacr al edema.Ct Thoracentesis Insrt Chest TubeResult Date: 12/19/2018History: Pleura l effusion. PROCEDURE: After being informed of the risks,benefits, and potential alt ernatives procedure informed consent was obtained.The patient was placed on the t able in the [id number] decubitus position.CT scanning was performed locat ion was chosen over the left flank. However, dueto the significant amount of patient motion and breathing motion was difficultto accurately assess a location for percuta neous paracentesis. Therefore, thiswas performed manually. After the chosen reg ion was prepped and draped in thenormal sterile fashion using maximum sterile ba rrier technique a lidocaineneedle was placed in the skin. This appeared to be in good position. Lidocainewas then used to anesthetize the skin and subcutaneous ti ssues in this location.Attempts were made to pass an 8 Congolese pigtail catheter throug h this location.However, patient continuous motion was significant as well as excess ivebreathing during the procedure. The catheter was placed at the same interspa ceas well as marked on the prior CT sequence however, due to the excessive patientmot ion the catheter was far more inferior within the chest that on the priorsequences. Th e catheter appeared to enter the hemiabdomen on the left from theleft chest. The cath eter was then pulled back to position where clear yellowfluid was aspirated. It was then sewn in position However, It appeared tomigrate forward and on the CT scanning appeared to again transgress thediaphragm. It was therefore pulled back to a point where only a clear fluid wasaspirated and respiratory variation was noted within t he tube. It was then sewnin position using 2-0 silk sutures. FINDINGS: Initial CT s debora revealed amoderate left pleural effusion. Attempts to nancy an adequate l ocation forpercutaneous thoracentesis were quite limited due to excessive patient m otionand breathing throughout the procedure. A location that appear to be a safelocat ion was marked. However, when the catheter was placed in this sameinterspace as wel l as marked the catheter appeared to be far more inferiorwithin the hemithorax than that seen previously. It appeared to enter the lefthemithorax inferiorly and transg ress the diaphragm with no evidence pathologicsequela. Therefore, it was pul led back into the pleural space for adequatedrainage. 130 cc of lightly bloo d-tinged fluid was aspirated. The catheter wasattached to a Pleur-evac and wall suc tion.IMPRESSION: Left-sided thoracentesis described above.Xr Chest PortResult Date : 01/10/2019XR CHEST PORT Clinical data: Sepsis Priors: 12/29/2018. Findings: Exam ination iscompromised due to limited inspiration and patient rotation. Heart size isunchanged. Haziness seen at the right lung base can be due to small effu sionwith atelectasis/infiltrate. No confluent left lung process is seen. No evidence of CHF.IMPRESSION: Limited study. Suspect right lung base process which ma y be due tosmall effusion with atelectasis/infiltrate.Xr Chest PortResu lt Date: 12/29/2018History: leukocytosis Technique: Portable chest x-ray 9 11:01 AMComparison: 12/25/2018. FINDINGS: There is a right lower lobe infiltrate o ratelectasis which is increased since prior exam. There is poor inspiration.There is a small left pleural effusion. The exam is rotated. Evaluation of thecardiac silhou ette is limited by projection. The visualized osseous structuresappear unremarkable.IM PRESSION: There is a right lower lobe infiltrate or atelectasis which isincrea sed since prior exam.Xr Chest PortResult Date: 12/18/2018Portable chest x-ray. PRIO R EXAM: 12/12/2018 and 11/25/2018 HISTORY: Pneumonia andpleural effusions FINDINGS: The heart is normal in size. The mediastinum andpulmonary vessels are unremarkable. T here is haziness within the lung basesbilaterally... The bony structures are intact.IMPRESSION: Haziness within the lung bases bilaterally that could repres entsmall pleural effusions and/or subsegmental atelectasis. Similar findin gs wereseen on prior exams.Duplex Upper Ext Venous LeftResult Date: 12/26/2018DUPLEX UPPER EXT VENOUS LEFT Clinical Data: Arm swelling, DVT suspectedFindings: The vis ualized segments of the left upper extremity venous circulationfrom the level of the subclavian vein to the brachial vein is compressible andshows normal phasic flow without an intraluminal thrombus. In addition, theinternal jugular vein and t he basilic vein is also patent. Extremely limitedexam because the patient was unab le to cooperate and this was done in a portablefashion.IMPRESSION: No evidence of deep vein thrombosis within the visualized left upperextremity venous circulation. Limited study.Duplex Lower Ext Venous BilatResult Date: 01/11/2019HISTORY: swel ling to lower extremities TECHNIQUE: Bilateral lower extremityvenous Doppler ultrasound Using real time and color-flow Doppler as well asspectral analysis and ultrasound examination was performed of the lowerextremities bilaterally. FINDINGS: On the right side the common femoral vein,superficial femoral vein along its entire course, as well as popliteal vein allappeared widely patent, were easily c ompressible, showed normal spontaneousflow. The calf veins were not visualized due t o body habitus. On the left sidethe common femoral vein, superficial femoral vein a long its entire course, aswell as popliteal vein all appeared widely patent, were ea sily compressible, andshowed normal spontaneous flow. The calf veins were no t visualized due to bodyhabitus.IMPRESSION: Normal bilateral lower extremity venous Doppler ultrasound with noevidence of deep vein thrombosis.Medications:Current Faci lity-Administered MedicationsMedication Dose Route Frequency potassium, sodium phosp hates (NEUTRA-PHOS) packet 1 Packet 1 Packet Per GTube QID budesonide (PULMICORT) 50 0 mcg/2 ml nebulizer suspension 500 mcg NebulizationBID RT sodium chloride (NS) flush 5-10 mL 5-10 mL IntraVENous PRN cholestyramine-aspartame (QUESTRAN LIGHT ) packet 4 g 4 g Oral TID WITH MEALS cinacalcet (SENSIPAR) tablet 60 mg 60 m g Oral DAILY lamoTRIgine (LaMICtal) tablet 50 mg 50 mg Per G Tube BID multivitami n (ONE A DAY) tablet 1 Tab 1 Tab Per G Tube DAILY pantoprazole (PROTONIX) granules for oral suspension 40 mg 40 mg Per G TubeACB valproic acid (as sodium salt) (DEPAKENE) 250 mg/5 mL (5 mL) oral solution 750mg 750 mg Oral BID ALPRAZolam (XANA X) tablet 0.5 mg 0.5 mg Per G Tube QHS 0.9% sodium chloride infusion 50 mL/hr Intra VENous CONTINUOUS acetaminophen (TYLENOL) solution 650 mg 650 mg Oral Q4H PRN he lili (porcine) injection 5,000 Units 5,000 Units SubCUTAneous Q12H influenza vacci ne 2018- (65 yrs+)(PF) (FLUZONE HIGH-DOSE) injection 0.5 mL0.5 mL IntraMUSCular YUAN OR TO DISCHARGE albuterol-ipratropium (DUO-NEB) 2.5 MG-0.5 MG/3 ML 3 mL Nebul ization Q6H RT piperacillin-tazobactam (ZOSYN) 3.375 g in 0.9% sodium chloride (MBP/ADV) 100mL MBP 3.375 g IntraVENous A2QLbdpva Problems: Acute respiratory f ailure with hypoxia (HCC) (01/10/2019) Pneumonia involving right lung ( 9) Hyponatremia (01/10/2019)Assessment:1. ACUTE HYPERCAPNIC AND HYPOXIC RESPIRAT ORY FAILURE2. ATELECTASIS R U L 3. PNEUMONIA R L L AND L L L4. AC COPD 5. MENTAL RETARDATION6. R U L NODULE 1.8 CM ? VASCULAR , NEEDS CAT SCAN CHEST WITH CONTRAST7. DYSPHAGIA8. EPILEPSY9. METABOLIC ENCEPHALOPATHY IMPROVINGPLAN :CULTURE BLOOD , SPUTUM , URINE AGREE WITH I V ZOSYNDUO NEB Q 4 H BIPAP FOR RE SPIRATORY . DISTRESS BUDESONIDE 500 MCG VIA MINI NEB Q 1 2 H REPEAT CAT SCAN CHEST WITH I V CONTRAST WHE N PATIENTY IS STABLE FOR R UL NODULE PROGNOSIS IS GUARDED , SLIGHTLY BETTER MUCOMYST IN DUO NEB VIA MINI NEB Krystian Monae MD F.C.C.P.January 12, 201912:18 PM Name Value Range Interpretation Code Description Data Harriett rce(s) Supporting Document(s ) ID Date Data Source [id number] 01/12/2019 10:14:26 AM EDT [facility] Care Management InterventionsPCP Verifie d by CM: YesMode of Transport at Discharge: S([facility]Transition of C are Consult (CM Consult): Discharge PlanningMyChart Signup: NoDischarge Dura ble Medical Equipment: NoPhysical Therapy Consult: NoOccupational Therapy Consult: NoSpeech Therapy Consult: NoCurrent Support Network: Nursing Facility([facility] )Plan discussed with Pt/Family/Caregiver: YesFreedom of Choice Offered: YesVeteran Resource Information Provided?: RefusedDischarge LocationDischarge Place ment: senior living facility([facility])CASE MANAGEMENT PSYCHOSOCIAL ASSESSME Vane Carlin Admission Date: 01/10/2019MRN: [id number] of : 1Current date: 01/12/2019DISCHARGE PLAN: CM met w ith pt bedside to discuss discharge planning but pt notalert and oriented. TC to pt e mergency contact Joyce [phone], LMrequesting call back. [facility] CM cclinked facili ty.Patient Information:Patients Preferred Name: evelioPatient Arrived Via: Stretc herInformation Obtained From: Unable to obtainPatient Objects to Receiving Blood : UnknownMRSA Assessment: Not applicableAuditory Impairment: NoneReadm it Risk ToolSupport Systems: senior living facilityRelationship with Primary Physic deondre Group: Seen at least one time within thepast 6 monthsPCP: Patricio Hills DOAdmitting Provider: ELIAN Gonzalez [facility]FORM[facility] PRODUCTION HELPER: NAPayor: Payor: [place] / Plan[place] PART A A [place] B/ Product Type: Medicare /Secondary Payor: @SECINSGROUPNAME@Acute respira tory failure with hypoxia (HCC) [J96.01]Pneumonia involving right lung [ J18.9]Patient Active Problem ListDiagnosis Code 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 COPD (chronic obstructive pulmonary disease) (HCC) J44.9 Acute respiratory distress R06.03 Pneumonia J18.9 COPD exacerbation (HCC) J44.1 Sepsis due to undetermined organism (HCC) A41.9 Generalized anxiety disorder F41.1 Acut e respiratory failure with hypoxia (HCC) J96.01 Pneumonia involving right lung J 18.9 Hyponatremia E87.1Social HistorySubstance and Sexual ActivityAlco hol Use NoNumber of stairs into patient home:DME:Cohabitants:Abuse Screen:Physic al Abuse/Neglect: Patient unable to answerSexual Abuse: Patient unable to an swerVerbal Abuse: Patient unable to answerOther Abuse/Issues: Patient unable to answerINSURANCE INFORMATION: (Verification)Primary Notes: MedicareSec ondary Notes: Generic commercialWorkmen's Comp Notes:No-Fault Notes:SSD Notes:Un-I nsured Notes:Long-Term Care Insurance If Applicable Notes:Current Functioning:Frantz guage barriers: Notes:Understanding nature/impact of illness: Notes:Ability to participate in plan: Notes:Realistic Problem solving and planning: Notes:Adeq uate coping skills: Notes:Sabianist/Cultural barriers: Notes:If unable to assess or n ot applicable: Notes:Suicide Assessment:Readmit Risk:Support Systems: senior living facilityRelationship with Primary Physician Group: Seen at least o ne time within thepast 6 monthsRRAT Total Score: 21Advanced Care Planning:Confirm Advance Directive: NoneDiscussed with the patient and all questions fully answered . Name Value Range Interpretation Code Description Data Harriett rce(s) Supporting Document(s ) ID Date Data Source [id number] 01/12/2019 06:18:09 AM EDT [facility] Bedside and Verbal shift change report carol pham to Eloisa Aggarwal RN (oncoming nurse) byGaston Starr RN (offgoing nurse). Report included the following information SBAR,Kardex and MAR. Name Value Range Interpretation Code Description Data [facility] rce(s) Supporting Document(s ) ID Date Data Source [id number] 01/12/2019 07:18:17 AM EDT [facility] Name Value Range Interpretation Description Data Sup porting Code Source(s) Document(s ) Sodium 137 136-145 [facility] [Moles/volume] mmol/L [facility] in Serum or Hospital Plasma Potassium 3.8 3.5-5.1 [facility] [Moles/volume] mmol/L [facility] in Serum or Hospital Plasma Chloride 99 98-107 [facility] [Moles/volume] mmol/L [facility] in Serum or Hospital Plasma Carbon 36 21-32 Above high normal [facility] dioxide, total mmol/L [facility] [Moles/volume] Hospital in Serum or Plasma Anion gap in 5 mmol/L 10-20 Below low normal [facility] - Go od Serum or [facility] Plasma Hospital Glucose 99 mg/dL 74-106 [facility] [Mass/volume] [facility] in Serum or Hospital Plasma Urea nitrogen 10 mg/dL 7-18 [facility] [Mass/volume] [facility] in Serum or Hospital Plasma Creatinine 0.40 0.70-1.3 Below low normal [facility] [Mass/volume] mg/dL 0 [facility] in Serum or Hospital Plasma Glomerular >60 [facility] - Good filtration [facility] rate/1.73 sq M Hospital predicted among blacks [Volume Rate/Area] in Serum or Plasma by Creatinine-bas ed formula (MDRD) Glomerular >60 [facility] - Good filtration Taoist rate/1.73 sq M Hospital predicted among non-blacks [Volume Rate/Area] in Serum or Plasma by Creatinine-bas ed formula (MDRD) Calcium 8.8 8.5-10.1 [facility] [Mass/volume] mg/dL [facility] in Serum or Hospital Plasma Phosphate 2.2 2.5-4.9 Below low normal [facility] Good [Mass/volume] mg/dL [facility] in Serum or Hospital Plasma Albumin 1.9 g/dL 3.5-4.7 Below low normal [facility] [Mass/volume] [facility] in Serum or Hospital Plasma by Bromocresol purple (BCP) dye binding method ID Date Data Source [id number] 01/12/2019 07:18:17 AM EDT [facility] Name Value Range Interpretation Description Data Sup porting Code Source(s) Document(s ) Magnesium 1.6 mg/dL 1.6-2.6 [facility] [Mass/volume] [facility] in Serum or Hospital Plasma ID Date Data Source [id number] 01/12/2019 06:55:27 AM EDT [facility] Name Value Range Interpretation Description Data Sup porting Code Source(s) Document(s ) Leukocytes 4.9 K/uL 4.8-10.6 [facility] - [#/volume] in Good Blood by Taoist Automated count [facility] Erythrocytes 3.20 4.70-6.0 Below low normal [facility] - [#/volume] in M/uL 0 Good Blood by [facility] Automated count Hospital Hemoglobin 10.8 14.0-18. Below low normal [facility] - [Mass/volume] in g/dL 0 [facility] Blood [facility] Hematocrit 33.2 % 42.0-52. Below low normal [facility] - [Volume 0 Good Fraction] of Taoist Blood by Hospital Automated count Erythrocyte mean 103.8 FL 81.0-94. Above high normal [facility] - corpuscular 0 Good volume [Entitic Taoist volume] by Hospital Automated count Erythrocyte mean 33.8 PG 27.0-35. [facility] - corpuscular 0 Good hemoglobin Taoist [Entitic mass] Hospital by Automated count Erythrocyte mean 32.5 30.7-37. [facility] - corpuscular g/dL 3 Good hemoglobin [facility] concentration Hospital [Mass/volume] by Automated count Erythrocyte 16.9 % 11.5-14. Above high normal [facility] - distribution 0 Good width [Ratio] by Taoist Automated count Hospital Platelets 246 K/uL 130-400 [facility] - [#/volume] in [facility] Blood by Taoist Automated count Hospital Platelet mean 9.0 FL 9.2-11.8 Below low normal [facility] - volume [Entitic Good volume] in Blood [facility] by Automated Hospital count Segmented 64 % 48.0-72. [facility] - neutrophils/100 0 Good leukocytes in [facility] Lymphocytes/100 24 % 18.0-40. [facility] - leukocytes in 0 [facility] Monocytes/100 8 % 2.0-12.0 [facility] - leukocytes in [facility] Blood [facility] Eosinophils/100 4 % 0.0-7.0 [facility] - leukocytes in [facility] Blood [facility] Basophils/100 0 % 0.0-3.0 [facility] - leukocytes in [facility] Blood [facility] Segmented 3.1 K/UL 1.5-6.6 [facility] - neutrophils Good [#/volume] in [facility] Lymphocytes 1.2 K/UL 1.5-3.5 Below low normal [facility] - [#/volume] in [facility] Blood [facility] Monocytes 0.4 K/UL 0.0-1.0 [facility] - [#/volume] in [facility] Eosinophils 0.2 K/UL 0.0-0.7 [facility] - [#/volume] in [facility] Basophils 0.0 K/UL 0.0-0.1 [facility] - [#/volume] in [facility] Differential [facility] - cell count [facility] Immature 0 % 0.0-2.0 [facility] - granulocytes/100 [facility] leukocytes in [facility] Automated count ID Date Data Source [id number] 01/12/2019 02:43:07 AM EDT [facility] Progressing slowly Name Value Range Interpretation Code Description Data Harriett rce(s) Supporting Document(s ) ID Date Data Source [id number] 01/11/2019 08:09:55 PM EDT [facility] HISTORY: swelling to lower extremitiesTE CHNIQUE:Bilateral lower extremity venous Doppler ultrasound Using real time and c olor-flow Doppler as well as spectral analysis andultrasound examination was p erformed of the lower extremities bilaterally.FINDINGS:On the right side t he common femoral vein, superficial femoral vein along itsentire course, as well as popliteal vein all appeared widely patent, were easilycompressible, showed normal s pontaneous flow.The calf veins were not visualized due to body habitus.On the le ft side the common femoral vein, superficial femoral vein along itsentire course, as well as popliteal vein all appeared widely patent, were easilycompressible, and dianna wed normal spontaneous flow.The calf veins were not visualized due to body habitus. IMPRESSION:Normal bilateral lower extremity venous Doppler ultrasound with no eviden ce ofdeep vein thrombosis. Signing date/time: 01/11/2019 8:09 PMSigned by: ROSALEE DOE Name Value Range Interpretation Code Description Data Harriett rce(s) Supporting Document(s ) ID Date Data Source [id number] 01/11/2019 07:43:36 PM EDT [facility] Bedside and Verbal shift change report g ivten to NANCY Campos (oncoming nurse) Israel Alamo RN (offgoing nurse). Report included the following information SBAR, Kardex,Intake/Output, MAR and Rece nt Results. Name Value Range Interpretation Code Description Data [facility] rce(s) Supporting Document(s ) ID Date Data Source [id number] 01/11/2019 07:18:27 PM EDT [facility] Bedside and Verbal shift change report carol pham to Beth RN (oncoming nurse) Israel Alamo RN (offgoing nurse). Report included the following information SBAR, Kardex,Intake/Output, MAR, Recent Results and Cardiac Rhythm NSR. Name Value Range Interpretation Code Description Data [facility](s) Supporting Document(s ) ID Date Data Source [id number] 01/11/2019 07:17:43 PM EDT [facility] ID Progress Note01/11/2019Subjective:Siri ent with mental retardation,recurrent aspiration pneumonia.Non verbal,unable t o provide history.Objective:Vitals:Patient Vitals for the past 24 hrs: BP Temp Puls e Resp XeA61001/11/19 1544 109/46 97.4 F (36.3 C) 72 16 96 %01/11/19 1123 114/54 97.1 F (36.2 C) 66 16 92 %01/11/19 0755 - - - - 97 %01/11/19 0732 113/73 97.4 F (36.3 C) (!) 55 16 97 %01/11/19 0606 - - - - 97 %01/11/19 0335 91/49 97.3 F (36.3 C) ( !) 58 18 95 %01/10/19 2333 94/54 96.7 F (35.9 C) 61 26 96 %01/10/19 1956 97/49 97.3 F (36.3 C) 70 18 92 %Tmax: Temp (24hrs), Av.2 F (36.2 C), Min:96.7 F (35.9 C), Max:97.4 F(36.3 C)Physical Exam:General: Awake non verbal cooperat britni, no distressNeck: Supple, symmetrical, trachea midline, no adenopathLungs: Bi lateral breath sounds with basal crackles.Heart: Regular rate and rhythm , S1, S2 normalAbdomen: Soft, non-tender. Bowel sounds normal. No masses, No orga nomegaly.+feeding tubeBack: No CVA tenderness.Extremities: Chronic lymphede ma.Pulses: 2+ and symmetric all extremities.Skin: Skin color, texture, t urgor normal. No rashes or lesionsCurrent Facility-Administered MedicationsMedicat ion Dose Route Frequency budesonide (PULMICORT) 500 mcg/2 ml nebulizer suspe nsion 500 mcg NebulizationBID RT sodium chloride (NS) flush 5-10 mL 5-10 mL Int raVENous PRN cholestyramine-aspartame (QUESTRAN LIGHT) packet 4 g 4 g Oral TI D WITH MEALS cinacalcet (SENSIPAR) tablet 60 mg 60 mg Oral DAILY lamoTRIgine (LaMIC krystian) tablet 50 mg 50 mg Per G Tube BID multivitamin (ONE A DAY) tablet 1 Tab 1 Tab Per G Tube DAILY pantoprazole (PROTONIX) granules for oral suspension 40 mg 40 mg Per G TubeACB valproic acid (as sodium salt) (DEPAKENE) 250 mg/5 mL (5 m L) oral solution 750mg 750 mg Oral BID ALPRAZolam (XANAX) tablet 0.5 mg 0.5 mg Per G Tube QHS 0.9% sodium chloride infusion 50 mL/hr IntraVENous CONTINUOU S acetaminophen (TYLENOL) solution 650 mg 650 mg Oral Q4H PRN heparin (porcine) i njection 5,000 Units 5,000 Units SubCUTAneous Q12H influenza vaccine 201 9-20 (65 yrs+)(PF) (FLUZONE HIGH-DOSE) injection 0.5 mL0.5 mL IntraMUSCular YUAN OR TO DISCHARGE albuterol-ipratropium (DUO-NEB) 2.5 MG-0.5 MG/3 ML 3 mL Nebul ization Q6H RT piperacillin-tazobactam (ZOSYN) 3.375 g in 0.9% sodium chloride (MBP/ADV) 100mL MBP 3.375 g IntraVENous B7TPlxy:Recent Labs 01/10/1907WBC 6.9 -- 10.4HGB 10.4* -- 12.0*PLT 221 -- 233BUN 9 7 7CREA 0.34* 0.41* 0.48*SGOT -- -- 13*AP -- -- 61TBILI -- -- 0.2Cultures:Lab Re sultsComponent Value Date/Time Culture result: NO GROWTH 1 DAY 01/10/2019 08:58 AM Culture result: NO GROWTH 1 DAY 01/10/2019 07:55 AM Culture result: NO G ROWTH 1 DAY 01/10/2019 07:40 AMRadiology:No results found.Assessment: Aspiration pn eumonia. Acute hypoxic respiratory failure. Dysphagia Pleural effusion. . COPD Pl an:1. Continue IV zosyn.Natasha Dudley, MDSeptember 20187:13 PM Name Value Range Interpretation Code Description Data Harriett rce(s) Supporting Document(s ) ID Date Data Source [id number] 01/11/2019 05:50:14 PM EDT [facility] Progress NoteMID-[facility] ,[facility].Krystian Monae MD., F.C.C.P.Stella Hamilton MD., F.C.C.P. 9W 1 [facility] [address] [place] [id number] [place] [address] [phone]: Evelio Carlin Sex: male DOA: 01/10/2019Da te of : 1950 Age: 68 y.o. LOS: LOS: 1 daySubjective:Mr. Jarad herrera is a 68 y.o. year old male who is being seen for SEPSIS, PNEUMONIAAND ACUTE RES PIRATORY FAILUREHE IS SLIGHTLY MORE AWAKE AND COMFORTABLE TODAY .Objective:Vital Signs:Patient Vitals for the past 24 hrs: BP Temp Pulse Resp MwX75301/11/19 1544 109/46 97.4 F (36.3 C) 72 16 96 %01/11/19 1123 114/54 97.1 F (36.2 C) 66 16 92 %01/11 0755 - - - - 97 %01/11/19 0732 113/73 97.4 F (36.3 C) (!) 55 16 97 %01/11/19 0606 - - - - 97 %01/11/19 0335 91/49 97.3 F (36.3 C) (!) 58 18 95 %01/10/19 2333 94 /54 96.7 F (35.9 C) 61 26 96 %01/10/19 1956 97/49 97.3 F (36.3 C) 70 18 92 %Pulse OX:SpO2 Readings from Last 6 Encounters:01/11/19 96%12/30/18 96%11/27 91%09/26/15 96%@LASTSAO2(6)@Physical Exam:MORE AWAKE ,LESS SOB . COMFORTA BLE . General: , cooperative, LESS RESPIRATORY distress, appears statedag e. Head: Normocephalic, without obvious abnormality, atraumatic. Eyes: Conjunctivae/corneas clear. PERRL, EOMs intact. Nose: N dada normal. No drainage or sinus tenderness Throat: Lips, mucosa, and tongu e normal Neck: Supple, symmetrical, trachea midline, no adenopa thy,thyroid: no enlargement/tenderness/nodules, no carot id bruit and no JVD. Lungs: WHEEZING AND RALES ARE LESS , to au scultationbilaterally. Chest Wall: No tenderness or deformity. Heart : Regular rate and rhythm, S1, S2 normal, E S GR 2/ 6murmur, click, rub or NO gallop. Abdomen: Soft, non-tender. Bowel sounds normal. No masses, No org anomegaly. Extremities: CONTRACTED , Extremities normal, atraumatic, no cyano sis oredema. Pulses: 4+ bilaterally. Skin: Skin co nirali, texture, turgor normal. No rashes or lesions. Neurologic: CNII-XII intact. No focal motor or sensory deficit.Intake and Output:Last three shifts: 01/09 1901 - 01/11 07In: 1870 [I.V.:180]Out: -Lab Results:Recent Results (from the past 24 hour(s))VALPROIC ACID Collection Time: 01/11/19 4:53 AMResult Value Ref Range Valproic acid 73 50.0 - 100.0 ug/mlRENAL FUNCTION PANEL Collection Time: 01/11/19 4:58 AMResult Value Ref Range Sodium 133 (L) 136 - 145 mmol/L Potassium 4.2 3.5 - 5.1 mmol/L Chloride 96 (L) 98 - 107 mmol/L CO2 32 21 - 32 mmol/L Anion gap 9 (L) 10 - 20 mmol/L Glucose 71 (L) 74 - 106 mg/dL BUN 9 7 - 18 mg/dL Creatinine 0.34 (L) 0 .70 - 1.30 mg/dL GFR est AA >60 >60 ml/min/1.73m2 GFR est non-AA >60 >60 ml/ min/1.73m2 Calcium 9.1 8.5 - 10.1 mg/dL Phosphorus 2.8 2.5 - 4.9 mg/dL Albumin 2 .0 (L) 3.5 - 4.7 g/dLMAGNESIUM Collection Time: 01/11/19 4:58 AMResult Value Ref Range Magnesium 2.1 1.6 - 2.6 mg/dLCBC WITH AUTOMATED DIFF Collection Time: 01/11/19 4:58 AMResult Value Ref Range WBC 6.9 4.8 - 10.6 K/uL RBC 3.11 (L) 4.70 - 6.00 M/uL HGB 10.4 (L) 14.0 - 18.0 g/dL HCT 31.9 (L) 42.0 - 52.0 % MCV 102.6 (H) 81.0 - 94.0 FL MCH 33.4 27.0 - 35.0 PG MCHC 32.6 30.7 - 37.3 g/dL RDW 16.8 (H) 11.5 - 14.0 % JOCELYN TELET 221 130 - 400 K/uL MPV 9.1 (L) 9.2 - 11.8 FL NEUTROPHILS 74 (H) 48.0 - 72.0 % LYMPHOCYTES 20 18.0 - 40.0 % MONOCYTES 6 2.0 - 12.0 % EOSINOPHILS 0 0.0 - 7.0 % BASOP HILS 0 0.0 - 3.0 % ABS. NEUTROPHILS 5.1 1.5 - 6.6 K/UL ABS. LYMPHOCYTES 1.4 (L) 1.5 - 3.5 K/UL ABS. MONOCYTES 0.4 0.0 - 1.0 K/UL ABS. EOSINOPHILS 0.0 0.0 - 0.7 K/UL ABS. BASOPHILS 0.0 0.0 - 0.1 K/UL DF AUTOMATED IMMATURE GRANULOCYTES 0 0.0 - 2.0 %ABG:R ecent Labs [id number] 7.46*PCO2 53*PO2 66*HCO3 38*Recent Glucose Results:Lab Re sultsComponent Value Date/Time GLU 71 (L) 01/11/2019 04:58 AM@[email or web address] ION@[email or web address] Micro Results Procedure Component Value Units Date/Time CULTURE, URINE [[id number]] Collected: 01/10/19 0858 Order Status: Completed Specimen: Urin e from Clean catch Updated: Special Requests: NO SPECIAL REQUESTS C ulture result: NO GROWTH 1 DAY CULTURE, BLOOD [[id number]] Collected: 01/10/19 0740 Or bassem Status: Completed Specimen: Blood Updated: 01/11/19918 Special Request s: NO SPECIAL REQUESTS Culture result: NO GROWTH 1 DAY CULTURE, BLOOD [[id number]] Collected: 01/10/19 0755 Order Status: Completed Specimen: Blood Updated: 918 Special Requests: NO SPECIAL REQUESTS Culture result: NO GROWTH 1 DA Y CULTURE, BLOOD [[id number]] Collected: 01/10/19 08 Order Status: Canceled Sp ecimen: BloodImages:@[email or web address]@Xr Chest Sngl VResult Date: 12/25/2018Portable nelda st x-ray. PRIOR EXAM: X-ray 12/18/2018 HISTORY: Pneumonia FINDINGS:The heart is normal i n size. The mediastinum and pulmonary vessels areunremarkable. There is a small right pleural effusion.. A tube projected overthe left upper quadrant of the abdomen..IMPR ESSION: Small right pleural effusion.Ct Chest Wo ContResult Date: 01/10/2019CT CHEST WO CONT Clinical data: evaluation of pneumonia rt lung. Priors:12/18/2018 Technique: CT s can of the chest was performed from the thoracic inletto below the diaphragm wit hout administration of intravenous contrast. Theacquisition data was reviewed in the axial, sagittal and coronal plane.Utilizing silver holloware assembler algorithm the examination w as performed to optimizeimaging quality by utilizing the lowest possible radiation dose. Findings: Thereis no evidence of pathological lymphadenopathy within the mediastinum, bilateralhilar and bilateral axillary location. There is a 1.8 cm no dule along the rightwall of the trachea at the level of the thoracic inlet (best se en on image 13ofseries 2) not seen on the prior study. This may be due to a mucou s plug. Noadditional endotracheal or endobronchial lesion is noted.Normal hea rt size.Coronary artery calcifications noted. Atherosclerotic thoracic aorta withouta neurysmal dilatation. Evaluation lung windows demonstrates patchy right lowerlobe lung infiltrate. There is associated small right pleural effusion similarto prior. There is also small left pleural effusion with underlying passiveatelectasis slightly d ecreased from the prior study. No new lung pathology isobserved. Included upper abd ominal organs: No significant pathology is observedwithin the visualized upper abdo wanda organs.IMPRESSION: Small bilateral pleural effusion. Right effusion is sim ilar toprior study. Left effusion slightly decreased in size. Patchy right lungopa cities which may be due to pneumonia similar to previous examinations. 1.8cm nodule along the right lateral wall of the trachea at the level of thethoracic inlet not ob served on the prior study and can be due to a mucous plug.Ct Chest Wo ContResult Date: 12/18/2018Referring Physician: KRYSTIAN MONAE Patient Name: EVELIO CARLIN THIS IS AFINAL REPORT FROM [facility] DATE OF SERVICE: 2018-12-18 01:22:40 IMAGES:555 EXAM: CT CHEST WO CONTRAST HISTORY: .. Right lower lobe atelectasis..TECHNIQUE: Helic al axial imaging from the thoracic inlet through the adrenalglands without contra st. Sagittal and coronal reconstructions were obtained.COMPARISON: CT chest without co ntrast of 12/13/2018. FINDINGS: .. Evaluationremains limited due to lack of IV contrast and patient positioning. The imagedthyroid gland remains atrophic. Th e aorta remains normal in caliber.Atherosclerotic calcifications a re again seen in the aorta. There is againcardiomediastinal shift towards the right. The heart remains normal in size andno pericardial effusion is noted. No obvious lymphadenopathy seen on thisunenhanced scan. No pneumothorax is noted. Since the prior exam there is beenincrease in bilateral pleural effusi ons with associated consolidations. Acalcified granuloma is again seen in th e right lower lobe. The imaged upperabdomen does not demonstrate any gross acute maggy nges. Osteopenia is again noted.Degenerative changes again seen in the imaged spine. Old healed right posteriorlower rib fractures are again seen.IMPRESSION: .. Limited s tudy demonstrating increase in bilateral pleuraleffusions with associated consoli dations with persistent cardiomediastinal shifttowards the right. Stable findings as noted above.. One or more of the followingdose reduction techniques were used: automated exposure control, adjustment ofthe mA and/or kV according to patient size, use of iterative reconstructivetechnique. THIS DOCUMENT H BEEN ELECTRONICALLY SIGNED Kamran Gillette MD 12/18/2018 04:49 GINA Verde Please call [facility] [phone] with questions. This report was electronically signed by: Tala MENDEZ 12/18/2018 04: 50 AMCt Chest Wo ContResult Date: 12/13/2018History: Respiratory difficulty . FINDINGS: CT scanning of the chest wasperformed helically from the lung api martine to the upper abdomen withoutintravenous contrast material. Sagittal and coronal reconstructed images aresubmitted. Scanning was performed utilizing dose lowering te chniques and iscompared to the prior study of 11/08/2018. The study is quite limited by patientpositioning. Evaluation of thoracic vascular structures is limited withoutin travenous contrast material does not reveal evidence of aneurysmal dilatationor defi nite CT evidence of dissection. Coronary artery calcification is seen.There is mi nimal calcification of the aortic arch. There is minimalcalcification of the descendin g thoracic aorta. There is no definite evidence ofany pathologically enlarged l ymph node in the visualized portions of themediastinum or axillae. Evaluation of pulmonary parenchymal structures revealssome atelectatic change in the right upper lo be. There is a small left pleuraleffusion as well as left basilar atelectatic change. There is some patchyopacity within the right middle lobe and right lower lobe which c ould also beinfiltrative in nature. Limited evaluation of upper abdominal structures isunremarkable. There is deviation of mediastinal structures to the right. Thi scould be as result of atelectatic change within the right lung. This has beenseen previously and is unchanged.IMPRESSION: Extremely limited study by patient posit ioning. Deviation ofmediastinal structures to the right as has been seen on prior stud ies. Leftpleural effusion. Bilateral infiltrates and atelectasis, greater on the rightthan the left.Cta Up Ext Lt W ContResult Date: 12/18/2018History: Arm cl audication. FINDINGS: CTA of the left upper extremity wasperformed helically from le ricky of the shoulder through the fingers after theintravenous administration of 119 cc of Isovue. Sagittal, coronal, and 3-Dreconstructed images obtained on an RealtimeBoard workstation are submitted. Noprior studies are available for comparison. Th e left subclavian artery is widelypatent. It is continuous with a widely patent left axillary artery. The axillaryartery is continuous with a widely patent left bra chial artery. The brachialartery bifurcates into a radial and ulnar artery just belo w the elbow. From thispoint distally streak artifact from patient positioning limits evaluation.However, the ulnar artery appears widely patent to the wrist. The radial a rteryis less well opacified but does appear patent to the wrist as well. Anintraosse ous artery also appears patent although it is poorly visualized aswell. The digital ar teries are not visualized on this study. There arebilateralpleural effusions note d both of which are moderate to large. Theeffusion on the left one is larger th an the right. Bibasilar atelectatic changethroughout much of the lower lobes is seen. There is a significant shift ofmediastinal structures to the right. T he liver is decreased in attenuationcompatible with fatty infiltr ation. The spleen is unremarkable. The adrenalglands are normal in appearance. The pancreas is grossly normal as is thegallbladder. A gastrostomy tube is no mikel in situ. The kidneys are unremarkable.There is a midline abdomina l wall hernia containing large and small bowel aswell as mesentery without eviden ce of obstruction. There is some presacralthickening and possibly some fr ee fluid noted. The patient is status post ORIFof the left hip with metallic hardwa re in situ.IMPRESSION: Patent left upper extremity arterial vessels although eval uationdistally is limited. Bilateral pleural effusions and bibasilar atelectasis.Shif t of mediastinal structures to the right.Ct Abd Pelv Wo ContResult Date: 12/21/2018His tory: ? Maturity of g-tube tract Technique: CT of the abdomen and pelvis wasperforme d from the dome of the diaphragm to the pubic symphysis without oral orintravenous con trast with dose lowering techniques. Sagittal and coronalreconstructions were performe d. Evaluation of solid abdominal viscera iscompromised by by the lack of intraven ous contrast. Evaluation of the bowelloops is compromised lack of oral contrast. All C T scans at this facility areperformed using dose optimization technique as appropria te to a performed exam,to include automated exposure control, adjustment of the mA a nd/or kV accordingto patient size (including appropriate matching first site-specific examinations), or use of iterative reconstruction technique. Comparison: CT scanof the chest performed 12/19/18 Findings: There is a small right pleural effusionw ith adjacent atelectasis. There is minimal left pleural fluid with adjacentatelecta sis. There is a pigtail catheter again identified on the left. The exactlocatio n of this catheter is difficult to ascertain benefits above the diaphragmto below the diaphragm. On today's study the tip appears to be located below thediaphragm. There is a small right pleural effusion with adjacent atelectasis.There is a G-tube i dentified in the stomach. The liver, gallbladder, spleen,pancreas, kidneys an d adrenal glands are unremarkable. No abdominal, pelvic oringuinal lymphadenop athy is identified. No free intraperitoneal fluid is noted.There is a ventral wall h ernia containing loops of what appear to be small bowelhowever are difficult to foll ow. There is mild perirectal stranding andpresacral edema correlate clinically. No dilated loops of bowel are identified.There is mild diverticulosis of the colon. The prostate, bladder and seminalvesicles appear unremarkable. The re are streak artifact obscuring portions ofthe pelvis due to a left hip ORIF. The re is subcutaneous gas identified alongthe right lower anterior pelvic wall.IMPRESS ION: There is a G-tube identified in the stomach. There is a tailcatheter identif ied on the left. The tip appears to be located below thediaphragm although is d ifficult to assess on CT. There is a small residualamount of pleural fluid as well as atelectasis along the left diaphragm. Thereis perirectal stranding and presacr al edema.Ct Thoracentesis Insrt Chest TubeResult Date: 12/19/2018History: Pleura l effusion. PROCEDURE: After being informed of the risks,benefits, and potential alt ernatives procedure informed consent was obtained.The patient was placed on the t able in the [id number] decubitus position.CT scanning was performed locat ion was chosen over the left flank. However, dueto the significant amount of patient motion and breathing motion was difficultto accurately assess a location for percuta neous paracentesis. Therefore, thiswas performed manually. After the chosen reg ion was prepped and draped in thenormal sterile fashion using maximum sterile ba rrier technique a lidocaineneedle was placed in the skin. This appeared to be in good position. Lidocainewas then used to anesthetize the skin and subcutaneous ti ssues in this location.Attempts were made to pass an 8 Congolese pigtail catheter throug h this location.However, patient continuous motion was significant as well as excess ivebreathing during the procedure. The catheter was placed at the same interspa ceas well as marked on the prior CT sequence however, due to the excessive patientmot ion the catheter was far more inferior within the chest that on the priorsequences. Th e catheter appeared to enter the hemiabdomen on the left from theleft chest. The cath eter was then pulled back to position where clear yellowfluid was aspirated. It was then sewn in position However, It appeared tomigrate forward and on the CT scanning appeared to again transgress thediaphragm. It was therefore pulled back to a point where only a clear fluid wasaspirated and respiratory variation was noted within t he tube. It was then sewnin position using 2-0 silk sutures. FINDINGS: Initial CT s debora revealed amoderate left pleural effusion. Attempts to nancy an adequate l ocation forpercutaneous thoracentesis were quite limited due to excessive patient m otionand breathing throughout the procedure. A location that appear to be a safelocat ion was marked. However, when the catheter was placed in this sameinterspace as wel l as marked the catheter appeared to be far more inferiorwithin the hemithorax than that seen previously. It appeared to enter the lefthemithorax inferiorly and transg ress the diaphragm with no evidence pathologicsequela. Therefore, it was pul led back into the pleural space for adequatedrainage. 130 cc of lightly bloo d-tinged fluid was aspirated. The catheter wasattached to a Pleur-evac and wall suc tion.IMPRESSION: Left-sided thoracentesis described above.Xr Chest PortResult Date : 01/10/2019XR CHEST PORT Clinical data: Sepsis Priors: 12/29/2018. Findings: Exam ination iscompromised due to limited inspiration and patient rotation. Heart size isunchanged. Haziness seen at the right lung base can be due to small effu sionwith atelectasis/infiltrate. No confluent left lung process is seen. No evidence of CHF.IMPRESSION: Limited study. Suspect right lung base process which ma y be due tosmall effusion with atelectasis/infiltrate.Xr Chest PortResu lt Date: 12/29/2018History: leukocytosis Technique: Portable chest x-ray 9 11:01 AMComparison: 12/25/2018. FINDINGS: There is a right lower lobe infiltrate o ratelectasis which is increased since prior exam. There is poor inspiration.There is a small left pleural effusion. The exam is rotated. Evaluation of thecardiac silhou ette is limited by projection. The visualized osseous structuresappear unremarkable.IM PRESSION: There is a right lower lobe infiltrate or atelectasis which isincrea sed since prior exam.Xr Chest PortResult Date: 12/18/2018Portable chest x-ray. PRIO R EXAM: 12/12/2018 and 11/25/2018 HISTORY: Pneumonia andpleural effusions FINDINGS: The heart is normal in size. The mediastinum andpulmonary vessels are unremarkable. T here is haziness within the lung basesbilaterally... The bony structures are intact.IMPRESSION: Haziness within the lung bases bilaterally that could repres entsmall pleural effusions and/or subsegmental atelectasis. Similar findin gs wereseen on prior exams.Xr Chest PortResult Date: 12/13/2018History: Respi ratory difficulty. FINDINGS: A frontal portable view of the chestis compared to the prior study from earlier in the same day. EKG leads overliethe chest. The car diac silhouette is normal in size. The left lung is clear. Theright lung is poorly e valuated due to significant rotation. The possibility ofright basilar infiltrate o r atelectatic change cannot be excluded. Mediastinaland hilar structures are poor ly evaluated as well.IMPRESSION: Study quite limited due to rotation. Opacity at the right lung basemay be infiltrative or atelectatic in nature.Xr Chest PortResul t Date: 12/12/2018History: Fever. Lethargy. FINDINGS: 2 frontal views of the chest a re compared tothe prior study of 11/25/2018. EKG leads overlie the chest. The cardiac silhouette is normal in size. There may be some streaky changes at the lungbases. E valuation of the lungs and mediastinal structures is quite limited dueto rotati on.IMPRESSION: Study quite limited by rotation. Basilar streaks noted.Duplex U pper Ext Venous LeftResult Date: 12/26/2018DUPLEX UPPER EXT VENOUS LEFT Cl inical Data: Arm swelling, DVT suspectedFindings: The visualized segmen ts of the left upper extremity venous circulationfrom the level of the subclav deondre vein to the brachial vein is compressible andshows normal phasic flow without an i ntraluminal thrombus. In addition, theinternal jugular vein and the basilic vein is also patent. Extremely limitedexam because the patient was unable to geo ate and this was done in a portablefashion.IMPRESSION: No evidence of deep vein thrombosis within the visualized left upperextremity venous circulation. Limited study.Medications:Current Facility-Administered MedicationsMedicat ion Dose Route Frequency budesonide (PULMICORT) 500 mcg/2 ml nebulizer suspe nsion 500 mcg NebulizationBID RT sodium chloride (NS) flush 5-10 mL 5-10 mL Int raVENous PRN cholestyramine-aspartame (QUESTRAN LIGHT) packet 4 g 4 g Oral TI D WITH MEALS cinacalcet (SENSIPAR) tablet 60 mg 60 mg Oral DAILY lamoTRIgine (LaMIC krystian) tablet 50 mg 50 mg Per G Tube BID multivitamin (ONE A DAY) tablet 1 Tab 1 Tab Per G Tube DAILY pantoprazole (PROTONIX) granules for oral suspension 40 mg 40 mg Per G TubeACB valproic acid (as sodium salt) (DEPAKENE) 250 mg/5 mL (5 m L) oral solution 750mg 750 mg Oral BID ALPRAZolam (XANAX) tablet 0.5 mg 0.5 mg Per G Tube QHS 0.9% sodium chloride infusion 50 mL/hr IntraVENous CONTINUOU S acetaminophen (TYLENOL) solution 650 mg 650 mg Oral Q4H PRN heparin (porcine) i njection 5,000 Units 5,000 Units SubCUTAneous Q12H influenza vaccine 201 9-20 (65 yrs+)(PF) (FLUZONE HIGH-DOSE) injection 0.5 mL0.5 mL IntraMUSCular YUAN OR TO DISCHARGE albuterol-ipratropium (DUO-NEB) 2.5 MG-0.5 MG/3 ML 3 mL Nebul ization Q6H RT piperacillin-tazobactam (ZOSYN) 3.375 g in 0.9% sodium chloride (MBP/ADV) 100mL MBP 3.375 g IntraVENous [id number] Problems: Acute respiratory f ailure with hypoxia (HCC) (01/10/2019) Pneumonia involving right lung ( 9) Hyponatremia (01/10/2019)Assessment:1. ACUTE HYPERCAPNIC AND HYPOXIC RESPIRAT ORY FAILURE2. ATELECTASIS R U L3. PNEUMONIA R L L AND L L L4. AC COPD5. MENTAL RETARDATION6. R U L NODULE 1.8 CM ? VASCULAR , NEEDS CAT SCAN CHEST WITH CONTRAST7. DYSPHAGIA8. EPILEPSY9. METABOLIC ENCEPHALOPATHY IMPROVINGPLAN :CULTURE BLOOD , SPUTUM , URINE AGREE WITH I V ZOSYNDUO NEB Q 4 H BIPAP FOR RESPIRA TORY . DISTRESS BUDESONIDE 500 MCG VIA MINI NEB Q 1 2 H REPEAT CAT SCAN CHEST WITH I V CONTRAST WHE N PATIENTY IS STABLE FOR R UL NODULE PROGNOSIS IS GUARD ED , SLIGHTLY BETTERNihal MD Dov F.C.C.P.January 11, 20195:40 PM Name Value Range Interpretation Code Description Data [facility] Supporting Document(s ) ID Date Data Source [id number] 01/11/2019 12:18:54 PM EDT [facility] ADMISSION NOTENAME: Evelio VieraReshmaChana B: 1950MRN: [id number]/Time: 01/10/2019 11:19 AMSubjective:CHIEF COMPL AINT: Tachypneic, Hypoxic with O2 SAT 87 % on 4 LPM and audiblewheezingHISTORY OF PRESENT ILLNESS:Evelio is a 68 y.o. male who presents from [facility] with medical his tory ofDysphagia , s/p surgical placement of peg on 11/17/18, severe intellectualdisab ility, Chronic respiratory failure, large Hiatal Hernia, hyperparathyroidunspecif ied, personal h/o pulmonary embolus, anxiety disorder, kyphosis andschizophrenia. Pt is nonverbal at baseline and is unable to provide a history.Per [facility], at 6 AM, patient was found Hypoxic, with O2SAT of 87 % on O2 NC 87 % on 4 LPM, heart rated 111 BPM, Blood Pressure of 105/73, respiratoryrate of 30 andaudible wheeze. Nebulizer treatment Pt was afebrile He was placed on a NRMw ith improved O2 SAT to 95 % , his respiratory rate was 30 and he was afebrile.[facility] reporting that the resident removes nasalcanula at times.In the ED pt appearing lethargic and having mild respiratory distress.CXR showing nelson ziness at the right lung base due to small effusion withatelectasis/infiltrate. No confluent left lung process is seen. Sodium uhhwx780.ABG with pH 7.46/53/66/38 O2 SA T 95 % on NC 4 LPM.The patient with initial encounter diagnosis of Respiratory distr ess, Sepsis,due to unspecified organism, Hypoxia, Lethargy and Aspiration Pneumon ia of rightlung, unspecified aspiration pneuminia type, unspecified part of lung .The patient received Tylenol, IV vancocin and zosyn and IV fluids.The patient was seen and examined in the ED, he is lethargic and tachypneic withRR 30. His O2 SAT on NC 4 LPM is now 90 %He has diminished breath sounds Right Lung. 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 Authorizing Providerclorazepate (TRANXENE) 3.75 mg tablet 1 Tab by Per G Tube route nightly. MaxDaily Amount: 3.75 mg. 12/30/18 Mili Hills DOmultivi tamin (ONE A DAY) tablet 1 Tab by Per G Tube route daily. 12/30/18Mili Hills DOc inacalcet (SENSIPAR) 30 mg tablet Take 2 Tabs by mouth daily. 12/30/18 Mili Hills DOlamoTRIgine (LAMICTAL) 25 mg tablet 2 Tabs by Per G Tube route two (2) times a day. 12/30/18 Mili Hills DOalbuterol-ipratropium (DUO-NEB) 2.5 mg -0.5 mg/3 ml nebu 3 mL by Nebulizationroute every six (6) hours. Every 6 hours while awake 12/30/18 Mili Hills DOalbuterol-ipratropium (DUO-NEB ) 2.5 mg-0.5 mg/3 ml nebu 3 mL by Nebulizationroute every four (4) hours a s needed for Cough (wheezing, shortness of breath).12/30/18 Mili Hills DObud esonide (PULMICORT) 0.5 mg/2 mL nbsp 2 mL by Nebulization route two (2) timesa day. Mili Hills DObacitracin 500 unit/gram ointment Apply 1 Packet to aff ected area two (2) timesa day. Indications: minor skin infection due to bacteria, fa cial scabs 12/30/18Mili Hills DOcholestyramine-aspartame (QUESTRAN LIG HT) 4 gram packet Take 1 Packet by mouththree (3) times daily (with meals). 12/30/18 Mili Hills DOpantoprazole (PROTONIX) 40 mg granules for oral suspension 40 mg by Per G Tuberoute Daily (before breakfast). 11/28/18 Mili Hills DOvalproate ( DEPAKENE) 250 mg/5 mL syrup Take 750 mg by mouth two (2) times a day.Provider, Hist oricalREVIEW OF SYSTEMS: [x] Unable to obtain ROS due to patient factorsObjective:JEROMY LS:Visit VitalsBP 101/56 (BP 1 Location: Right arm, BP Patient Position: At rest) Pulse 89Temp (!) 102.4 F (39.1 C)Resp (!) 31Ht 5' 2" (1.575 m)Wt 51.7 kg (114 lb)S pO2 96%BMI 20.85 kg/m PHYSICAL EXAM:General: Alert, cooperative, wearing O2 NC appe ars stated age.Head: Normocephalic, without obvious abnormality, atraumatic.Eyes: Conjunctivae clear, anicteric sclerae. Pupils are equal.Throat: Lips, mucosa , and tongue normal. No ThrushNeck: Supple, symmetrical, no adenopathy, no carotid bruit and no JVD.Lungs: Bilateral air entry. Reduced breath sounds right lung. No Wheezing orRhonchi. No rales.Chest wall: No Accessory muscle use.Heart: Regular rate and rhythm, no murmur, or rubAbdomen: Peg intact, soft non-tender. Not disten ded. Bowel sounds normal. NomassesExtremities: Extremities normal, atraumatic, No cyanosis. Positive ankle andpedal edema left foot. No clubbingSki n: Warm and dry. . No rashes or lesions. Not JaundicedLymph nodes: Cervical, supr aclavicular normal.Psych: Good insight. Not depressed. Not anxious or agitated.Neur ologic: EOMs intact. No facial asymmetry. No aphasia or slurred speech. Nonambulatroy . WC bound, Lethargic, eyes opening, He is awake.LAB DATA REVIEWED:Recent Results ( from the past 24 hour(s))EKG, 12 LEAD, INITIAL Collection Time: 01/10/19 7:34 AMResult Value Ref Range Ventricular Rate 110 BPM Atrial Rate 109 BPM P-R Interval 148 ms QRS Duration 88 ms Q-T Interval 304 ms QTC Calculation (Bezet) 411 ms Calculate d P [place] 49 degrees Calculated R [place] 62 degrees Calculated T [place] 1 degrees Diag nosis Sinus tachycardiaLACTIC ACID Collection Time: 01/10/19 7:40 AMResult Value Ref Range Lactic acid 1.9 0.4 - 2.0 MMOL/LMETABOLIC PANEL, COMPREHENSIVE Col lection Time: 01/10/19 7:40 AMResult Value Ref Range Sodium 126 (L) 136 - 145 mmol/ L Potassium 4.5 3.5 - 5.1 mmol/L Chloride 87 (L) 98 - 107 mmol/L CO2 38 (H) 21 - 32 m mol/L Anion gap 6 (L) 10 - 20 mmol/L Glucose 114 (H) 74 - 106 mg/dL BUN 7 7 - 18 mg/d L Creatinine 0.48 (L) 0.70 - 1.30 mg/dL GFR est AA >60 >60 ml/min/1.73m2 GFR est non -AA >60 >60 ml/min/1.73m2 Calcium 9.4 8.5 - 10.1 mg/dL Bilirubin, total 0.2 0.2 - 1. 0 mg/dL ALT (SGPT) 12 (L) 13 - 61 U/L AST (SGOT) 13 (L) 15 - 37 U/L Alk. phosphata se 61 45 - 117 U/L Protein, total 7.4 6.4 - 8.2 g/dL Albumin 2.3 (L) 3.5 - 4.7 g/dL Globulin 5.1 (H) 1.7 - 4.7 g/dL A-G Ratio 0.5 (L) 0.7 - 2.8CBC WITH AUTOMATED DIFF Col lection Time: 01/10/19 7:40 AMResult Value Ref Range WBC 10.4 4.8 - 10.6 K/uL RBC 3 .58 (L) 4.70 - 6.00 M/uL HGB 12.0 (L) 14.0 - 18.0 g/dL HCT 36.2 (L) 42.0 - 52.0 % MCV 101.1 (H) 81.0 - 94.0 FL MCH 33.5 27.0 - 35.0 PG MCHC 33.1 30.7 - 37.3 g/dL RDW 1 6.4 (H) 11.5 - 14.0 % PLATELET 233 130 - 400 K/uL MPV 8.9 (L) 9.2 - 11.8 FL NEUTROPHI LS 85 (H) 48.0 - 72.0 % LYMPHOCYTES 8 (L) 18.0 - 40.0 % MONOCYTES 5 2.0 - 12.0 % E OSINOPHILS 2 0.0 - 7.0 % BASOPHILS 0 0.0 - 3.0 % ABS. NEUTROPHILS 8.9 (H) 1.5 - 6.6 K/UL ABS. LYMPHOCYTES 0.8 (L) 1.5 - 3.5 K/UL ABS. MONOCYTES 0.6 0.0 - 1.0 K/UL ABS. E OSINOPHILS 0.2 0.0 - 0.7 K/UL ABS. BASOPHILS 0.0 0.0 - 0.1 K/UL DF AUTOMATED IMMATURE GRANULOCYTES 0 0.0 - 2.0 % RBC COMMENTS 1+MACROCYTOSIS PLATELET ESTIMATE ADEQUAT ETROPONIN I Collection Time: 01/10/19 7:40 AMResult Value Ref Range Troponin-I, Qt. <0.02 0.00 - 0.05 NG/MLCK Collection Time: 01/10/19 7:40 AMResult Value Ref Range CK 29 (L) 39 - 308 U/LBNP Collection Time: 01/10/19 7:40 AMResult Value Ref Range BNP 28 0 - 100 pg/mLPTT Collection Time: 01/10/19 7:40 AMResult Value Ref Range aPTT 25.3 21.0 - 28.0 SECPROTHROMBIN TIME + INR Collection Time: 01/10/19 7:40 AMRe sult Value Ref Range Prothrombin time 10.3 9.4 - 11.1 sec INR 1.0 0.8 - 1.2BLOOD GA S, ARTERIAL Collection Time: 01/10/19 7:47 AMResult Value Ref Range pH 7.46 (H) 7.3 5 - 7.45 PCO2 53 (H) 32 - 48 mmHg PO2 66 (L) 83 - 108 mmHg CO2, TOTAL 39 (H) 19 - 24 mmol/L BICARBONATE 38 (H) 21 - 28 mmol/L O2 SAT 95 94 - 98 % BASE EXCESS 11.8 (H) 0 - 3 mmol/L SITE RIGHT BRACHIAL DEVICE NASAL O2 O2 FLOW 4 L/min Performed by [id number] NALYSIS W/ RFLX MICROSCOPIC Collection Time: 01/10/19 8:48 AMResult Value Ref Range Color YELLOW YEL Appearance TURBID (A) CLEAR Specific gravity 1.016 1.003 - 1.030 pH (UA) 7.0 4.6 - 8.0 Protein NEGATIVE NEG mg/dL Glucose NEGATIVE NEG mg/dL Ketone NEGATIVE NEG mg/dL Bilirubin NEGATIVE NEG Blood NEGATIVE NEG Urobilinogen 0.2 0.2 - 1.0 EU/dL Nitrites NEGATIVE NEG Leukocyte Esterase NEGATIVE NEG WBC 5-10 0 - 5 /h pf RBC 20-50 0 - 3 /hpf Epithelial cells 0-3 0 - 10 /hpf Bacteria NONE NONE /hpf Cast s 5-10 (A) NONE /lpf Crystals, urine NONE NONE /LPFAssessment/Plan:Active Problems : Acute respiratory failure with hypoxia (HCC) (01/10/2019) Pneumonia involving r ight lung (01/10/2019) Hyponatremia (01/10/2019) Acute Respiratory Failure wi th Hypercapnia and Hypoxia Pneumonia Likely Aspiration Atelectasis Dysphagia s/p nena gical placed peg Mentally Challenged SeizureHyperparathyroid Left ankle and p edal edema PLAN:Risk of deterioration: []Low [x]Moderate []High1. Admit to telemetry2. O2 NC3. IV zosyn per ID4. Consult pulmonary5. CT Chest woc6. nebulizers7. Duplex venous b/l lower extremities7. Follow culturesProphylaxis: []Lovenox []Couma din [x]Hep SQ []SCD's [x]H2B/PPIDisposition: []Home w/ Family []HH PT,OT,RN [x]SNF/LTC []SAH/RehabDiscussed Code Status: [x] Full Code []DNR Care Plan discussed with: []Patient []Family []ED Care Manage r [x]ED Doc [x]Specialist : Lili, IDD/W pt ED RN Admitting Physician: Mili Hills DO January 10, 2019 11 :19 AM Name Value Range Interpretation Code Description Data Harriett rce(s) Supporting Document(s ) ID Date Data Source [id number] 01/11/2019 07:29:40 AM EDT [facility] Bedside and Verbal shift change report carol Chou (oncoming nurse) Lisbeth Schmitz (offgoing nurse). Report included the following information SBAR,Kardex, Intake/Output, MAR and Recent Results. Name Value Range Interpretation Code Description Data [facility] rce(s) Supporting Document(s ) ID Date Data Source [id number] 01/11/2019 07:33:43 AM EDT [facility] Name Value Range Interpretation Description Data Sup porting Code Source(s) Document(s ) Sodium 133 136-145 Below low normal [facility] - [facility] [Moles/volume] mmol/L [facility] in Serum or Hospital Plasma Potassium 4.2 3.5-5.1 [facility] [Moles/volume] mmol/L [facility] in Serum or Hospital Plasma Chloride 96 98-107 Below low normal [facility] [Moles/volume] mmol/L [facility] in Serum or Hospital Plasma Carbon 32 21-32 [facility] - [facility] dioxide, total mmol/L [facility] [Moles/volume] Hospital in Serum or Plasma Anion gap in 9 mmol/L 10-20 Below low normal [facility] - Go od Serum or [facility] Plasma Hospital Glucose 71 mg/dL 74-106 Below low normal [facility] [Mass/volume] [facility] in Serum or Hospital Plasma Urea nitrogen 9 mg/dL 7-18 [facility] [Mass/volume] [facility] in Serum or Hospital Plasma Creatinine 0.34 0.70-1.3 Below low normal [facility] [Mass/volume] mg/dL 0 [facility] in Serum or Hospital Plasma Glomerular >60 [facility] - Good filtration [facility] rate/1.73 sq M Hospital predicted among blacks [Volume Rate/Area] in Serum or Plasma by Creatinine-bas ed formula (MDRD) Glomerular >60 [facility] - Good filtration [facility] rate/1.73 sq M Hospital predicted among non-blacks [Volume Rate/Area] in Serum or Plasma by Creatinine-bas ed formula (MDRD) Calcium 9.1 8.5-10.1 [facility] - [facility] [Mass/volume] mg/dL [facility] in Serum or Hospital Plasma Phosphate 2.8 2.5-4.9 [facility] - [facility] [Mass/volume] mg/dL [facility] in Serum or Hospital Plasma Albumin 2.0 g/dL 3.5-4.7 Below low normal [facility] [Mass/volume] [facility] in Serum or Hospital Plasma by Bromocresol purple (BCP) dye binding method ID Date Data Source [id number] 01/11/2019 07:33:43 AM EDT [facility] Name Value Range Interpretation Description Data Sup porting Code Source(s) Document(s ) Magnesium 2.1 mg/dL 1.6-2.6 [facility] - [facility] [Mass/volume] [facility] in Serum or Hospital Plasma ID Date Data Source [id number] 01/11/2019 07:10:25 AM EDT [facility] Name Value Range Interpretation Description Data Sup porting Code Source(s) Document(s ) Leukocytes 6.9 K/uL 4.8-10.6 [facility] - [#/volume] in Good Blood by [facility] Automated count [facility] Erythrocytes 3.11 4.70-6.0 Below low normal [facility] - [#/volume] in M/uL 0 Good Blood by [facility] Automated count [facility] Hemoglobin 10.4 14.0-18. Below low normal [facility] - [Mass/volume] in g/dL 0 Good Blood [facility] Hematocrit 31.9 % 42.0-52. Below low normal [facility] - [Volume 0 Good Fraction] of [facility] Blood by Hospital Automated count Erythrocyte mean 102.6 FL 81.0-94. Above high normal [facility] - corpuscular 0 Good volume [Entitic Taoist volume] by Hospital Automated count Erythrocyte mean 33.4 PG 27.0-35. [facility] - corpuscular 0 Good hemoglobin Taoist [Entitic mass] [facility] by Automated count Erythrocyte mean 32.6 30.7-37. [facility] - corpuscular g/dL 3 Good hemoglobin [facility] concentration [facility] [Mass/volume] by Automated count Erythrocyte 16.8 % 11.5-14. Above high normal [facility] - distribution 0 Good width [Ratio] by [facility] Automated count Hospital Platelets 221 K/uL 130-400 [facility] - [#/volume] in [facility] Blood by Tao[facility] Automated count [facility] Platelet mean 9.1 FL 9.2-11.8 Below low normal [facility] - volume [Entitic Good volume] in [facility] by Automated Hospital count Segmented 74 % 48.0-72. Above high normal [facility] - neutrophils/100 0 Good leukocytes in [facility] Lymphocytes/100 20 % 18.0-40. [facility] - leukocytes in 0 [facility] Monocytes/100 6 % 2.0-12.0 [facility] - leukocytes in [facility] Eosinophils/100 0 % 0.0-7.0 [facility] - leukocytes in [facility] Basophils/100 0 % 0.0-3.0 [facility] - leukocytes in [facility] Segmented 5.1 K/UL 1.5-6.6 [facility] - neutrophils Good [#/volume] in [facility] Lymphocytes 1.4 K/UL 1.5-3.5 Below low normal [facility] - [#/volume] in [facility] Monocytes 0.4 K/UL 0.0-1.0 [facility] - [#/volume] in [facility] Eosinophils 0.0 K/UL 0.0-0.7 [facility] - [#/volume] in [facility] Basophils 0.0 K/UL 0.0-0.1 [facility] - [#/volume] in [facility] Differential [facility] - cell count Good method [facility] Immature 0 % 0.0-2.0 [facility] - granulocytes/100 Good leukocytes in [facility] Automated count ID Date Data Source [id number] 01/11/2019 07:30:53 AM EDT [facility] Name Value Range Interpretation Description Data Sup porting Code Source(s) Document(s ) Valproate 73 ug/ml 50.0-100 [facility] [Mass/volume] .0 [facility] in Serum or Hospital Plasma ID Date Data Source [id number] 01/10/2019 11:40:55 PM EDT [facility] Problem: Falls - Risk ofGoal: *Absence o f FallsDescriptionDocument Samra Fall Risk and appropriate interventions in the jhon wsheet.Outcome: Progressing Towards GoalNote:Fall Risk Interventions:Mobilit y Interventions: Bed/chair exit alarm, Communicate number of staff neededfor am bulation/transferMedication Interventions: Bed/chair exit alarmElimination Interven tions: Bed/chair exit alarm, Call light in reach, Toiletingschedule/hourly roundsHi story of Falls Interventions: Bed/chair exit alarm, Door open when patientunattendedP roblem: Patient Education: Go to Patient Education ActivityGoal: Patient/Family E ducationOutcome: Progressing Towards GoalProblem: Pressure Injury - Risk ofGo al: *Prevention of pressure injuryDescriptionDocument Butch Scale a nd appropriate interventions in the flowsheet.Outcome: Progressing Towards G oalNote:Pressure Injury Interventions:Sensory Interventions: Assess changes in LOC, Ch wojciech visual cues for pain, Keeplinens dry and wrinkle-free, Minimize linen layers, Tur n and reposition approx.every two hours (pillows and wedges if needed)Moisture I nterventions: Absorbent underpadsActivity Interventions: Pressure redistribution b ed/mattress(bed type)Mobility Interventions: Pressure redistribution bed/mattress (be d type), HOB 30degrees or lessNutrition Interventions: Document food/fluid/suppl ement intakeFriction and Shear Interventions: HOB 30 degrees or less, Apply protective barrier, creams and emollients, Feet elevated on foot restProblem: Patient Education: Go to Patient Education ActivityGoal: Patient/Family EducationOutcome: Progres sing Towards Goal Name Value Range Interpretation Code Description Data [facility] Supporting Document(s ) ID Date Data Source [id number] 01/10/2019 07:19:15 PM EDT [facility] Bedside, Verbal and Written shift change report given to emily (oncoming nurse)by nakul lyngoing nurse). Report inc luded the following information SBAR,Kardex, Intake/Output, MAR, Recent Results, Med Rec Status and Cardiac Rhythm. Name Value Range Interpretation Code Description Data [facility](s) Supporting Document(s ) ID Date Data Source [id number] 01/10/2019 07:13:43 PM EDT [facility] Name Value Range Interpretation Description Data Sup porting Code Source(s) Document(s ) Osmolality of 280 280-300 [facility] Serum or MOSM/kg [facility] Plasma H2O Hospital ID Date Data Source [id number] 01/10/2019 06:44:04 PM EDT [facility] Name Value Range Interpretation Description Data Sup porting Code Source(s) Document(s ) Sodium 133 136-145 Below low normal [facility] [Moles/volume] mmol/L [facility] in Serum or Hospital Plasma Potassium 4.6 3.5-5.1 [facility] [Moles/volume] mmol/L [facility] in Serum or Hospital Plasma Chloride 96 98-107 Below low normal [facility] [Moles/volume] mmol/L [facility] in Serum or Hospital Plasma Carbon 32 21-32 [facility] - Good dioxide, total mmol/L [facility] [Moles/volume] Hospital in Serum or Plasma Anion gap in 10 10-20 [facility] - [facility] Serum or mmol/L [facility] Plasma [facility] Glucose 124 74-106 Above high normal [facility] [Mass/volume] mg/dL [facility] in Serum or Hospital Plasma Urea nitrogen 7 mg/dL 7-18 [facility] [Mass/volume] [facility] in Serum or Hospital Plasma Creatinine 0.41 0.70-1.3 Below low normal [facility] [Mass/volume] mg/dL 0 [facility] in Serum or Hospital Plasma Glomerular >60 [facility] - Good filtration [facility] rate/1.73 sq M Hospital predicted among blacks [Volume Rate/Area] in Serum or Plasma by Creatinine-bas ed formula (MDRD) Glomerular >60 [facility] - Good filtration [facility] rate/1.73 sq M Hospital predicted among non-blacks [Volume Rate/Area] in Serum or Plasma by Creatinine-bas ed formula (MDRD) Calcium 8.8 8.5-10.1 [facility] - [facility] [Mass/volume] mg/dL [facility] in Serum or Hospital Plasma Phosphate 3.0 2.5-4.9 [facility] - [facility] [Mass/volume] mg/dL [facility] in Serum or Hospital Plasma Albumin 2.0 g/dL 3.5-4.7 Below low normal [facility] [Mass/volume] [facility] in Serum or Hospital Plasma by Bromocresol purple (BCP) dye binding method ID Date Data Source [id number] 01/10/2019 05:01:22 PM EDT [facility] Progress NoteMID-N[facility] ,[facility].Krystian Monae MD., F.CGualbertoC.P.Stella Hamilton MD., BellaCGualbertoPGualberto [address] [place] [id number] [place] [phone]: Evelio Carlin Sex: male DOA: 01/10/2019Da te of : 1950 Age: 68 y.o. LOS: LOS: 0 daysSubjective:1. Mr. Evelio Carlin is a 68 y.o. male with h/o COPD, pneumonia, pulmonaryemboli, hypopa rathyroidism, and mental retardation who presents to the ED viaambulance with res piratory distress and hypoxia. [facility] EMS personnel[facility] was found with an oxygen sat of 80% on 4L. After beingput on a nonrebreathing m ask, the patient's oxygenation went up to 95. Atbaseline, the patient is on 4L of oxyg en.T= 102 . 4 F . The patient cannotprovide any coherent history or review of system s at this time. No othercomplaints at this time.2. Hx Of Aspirations , aspiratio n pneumonia3. hx Of Pleural Effusion drained In past With tube Thoracotomy .4. Severe mental retardation5. CAT SCAN CHEST6. R U L ATELECTASIS , NEW PNEUMO FREDDY , R L L AND L L L PNEUMONIA . Dr. Mili Hills, PCPObjective:Vital Signs:Patient Vitals for the past 24 hrs: BP Temp Pulse Resp SpO2 Height Btehkj12/28/19 1243 97/ 62 97.8 F (36.6 C) 82 22 93 % - -01/10/19 1202 - - - - 97 % - -01/10/19 1133 - - - - 94 % - -01/10/19 1130 99/61 99.7 F (37.6 C) 87 22 94 % - -01/10/19 1006 - - - - 9 6 % - -01/10/19 0955 101/56 - 89 (!) 31 99 % - -01/10/19 0906 100/58 - 92 (!) 31 97 % - -01/10/19 0836 93/61 - 100 (!) 34 99 % - -01/10/19 0806 109/69 - (!) 105 (!) 37 9 6 % - -01/10/19 0736 119/75 (!) 102.4 F (39.1 C) (!) 114 24 93 % 5' 2" (1.575 m ) 51.7kg (114 lb)Pulse OX:SpO2 Readings from Last 6 Encounters:01/10/19 93%12/30/18 9 6%11/27/18 91%09/26/15 96%@LASTSAO2(6)@Physical Exam:VERY DANIEL RGIC , MILD TACHYPNEA . General: Alert, cooperative, MILD TO MODERATE RE SPIRATORY distress,appears stated age. Head: Normocephalic, without obvi ous abnormality, atraumatic. Eyes: Conjunctivae/corneas clear. PERRL, EOM s intact. Nose: Nares normal. No drainage or sinus tenderness Thr oat: Lips, mucosa, and tongue normal Neck: Supple, symmetrical, trachea midline, no adenopathy,thyroid: no enlargement/tenderness/nodules, no carot id bruit and no JVD. Lungs: BREATH SOUNDS DECREASED R U L , RALES + R L L , AND L LL , MILD WHEEZING +1 to auscultation bilaterally. Chest Wall: No tenderness or deformity. Heart: Regular rate and rhythm, S1, S2 normal , ES GR 1/ 6 murmur,click, rub or NO gallop. Abdomen: P E G + Soft, non -tender. Bowel sounds normal. No masses, No organomegaly. Extremities: CONTRACTED , Extremities normal, atraumatic, no cyanosis oredema. Pulses: 4+ bilaterall y. Skin: Skin color, texture, turgor normal. No rashes or lesions. Ne urologic: LETHARGIC ,CNII-XII intact. No focal motor or sensory deficit.Intake an d Output:Last three shifts: No intake/output data recorded.Lab Results:Recent Results (from the past 24 hour(s))EKG, 12 LEAD, INITIAL Collection Time: 01/10/19 7:34 AMResult Value Ref Range Ventricular Rate 110 BPM Atrial Rate 109 BPM P-R Interval 148 ms QRS Duration 88 ms Q-T Interval 304 ms QTC Calculation (Bezet) 411 ms Calculate d P [place] 49 degrees Calculated R [place] 62 degrees Calculated T [place] 1 degrees Diag nosis Sinus tachycardiaCULTURE, BLOOD Collection Time: 01/10/19 7:40 AMResult Value Ref Range Special Requests: NO SPECIAL REQUESTS Culture result: NO GROWTH AFTER 3 HOURSLACTIC ACID Collection Time: 01/10/19 7:40 AMResult Value Ref Range Lactic ac id 1.9 0.4 - 2.0 MMOL/LMETABOLIC PANEL, COMPREHENSIVE Collection Time: 01/10/19 7:40 AMResult Value Ref Range Sodium 126 (L) 136 - 145 mmol/L Potassium 4.5 3.5 - 5.1 mmol/L Chloride 87 (L) 98 - 107 mmol/L CO2 38 (H) 21 - 32 mmol/L Anion gap 6 (L) 10 - 20 mmol/L Glucose 114 (H) 74 - 106 mg/dL BUN 7 7 - 18 mg/dL Creatinine 0.48 (L) 0 .70 - 1.30 mg/dL GFR est AA >60 >60 ml/min/1.73m2 GFR est non-AA >60 >60 ml/ min/1.73m2 Calcium 9.4 8.5 - 10.1 mg/dL Bilirubin, total 0.2 0.2 - 1.0 mg/dL ALT (SGPT) 12 (L) 13 - 61 U/L AST (SGOT) 13 (L) 15 - 37 U/L Alk. phosphatase 61 45 - 117 U/L Protein, total 7.4 6.4 - 8.2 g/dL Albumin 2.3 (L) 3.5 - 4.7 g/dL Globulin 5.1 (H) 1.7 - 4.7 g/dL A-G Ratio 0.5 (L) 0.7 - 2.8CBC WITH AUTOMATED DIFF Collection Time: 01/10/19 7:40 AMResult Value Ref Range WBC 10.4 4.8 - 10.6 K/uL RBC 3.58 (L) 4. 70 - 6.00 M/uL HGB 12.0 (L) 14.0 - 18.0 g/dL HCT 36.2 (L) 42.0 - 52.0 % MCV 101.1 (H) 81.0 - 94.0 FL MCH 33.5 27.0 - 35.0 PG MCHC 33.1 30.7 - 37.3 g/dL RDW 16.4 (H) 11.5 - 14.0 % PLATELET 233 130 - 400 K/uL MPV 8.9 (L) 9.2 - 11.8 FL NEUTROPHILS 85 (H) 48. 0 - 72.0 % LYMPHOCYTES 8 (L) 18.0 - 40.0 % MONOCYTES 5 2.0 - 12.0 % EOSINOPHILS 2 0 .0 - 7.0 % BASOPHILS 0 0.0 - 3.0 % ABS. NEUTROPHILS 8.9 (H) 1.5 - 6.6 K/UL ABS. LYMPHOCYTES 0.8 (L) 1.5 - 3.5 K/UL ABS. MONOCYTES 0.6 0.0 - 1.0 K/UL ABS. EOSINO PHILS 0.2 0.0 - 0.7 K/UL ABS. BASOPHILS 0.0 0.0 - 0.1 K/UL DF AUTOMATED IMMATURE GRA NULOCYTES 0 0.0 - 2.0 % RBC COMMENTS 1+MACROCYTOSIS PLATELET ESTIMATE ADEQUAT ETROPONIN I Collection Time: 01/10/19 7:40 AMResult Value Ref Range Troponin-I, Qt. <0.02 0.00 - 0.05 NG/MLCK Collection Time: 01/10/19 7:40 AMResult Value Ref Range CK 29 (L) 39 - 308 U/LBNP Collection Time: 01/10/19 7:40 AMResult Value Ref Range BNP 28 0 - 100 pg/mLPTT Collection Time: 01/10/19 7:40 AMResult Value Ref Range aPTT 25.3 21.0 - 28.0 SECPROTHROMBIN TIME + INR Collection Time: 01/10/19 7:40 AMRe sult Value Ref Range Prothrombin time 10.3 9.4 - 11.1 sec INR 1.0 0.8 - 1.2BLOOD GA S, ARTERIAL Collection Time: 01/10/19 7:47 AMResult Value Ref Range pH 7.46 (H) 7.3 5 - 7.45 PCO2 53 (H) 32 - 48 mmHg PO2 66 (L) 83 - 108 mmHg CO2, TOTAL 39 (H) 19 - 24 mmol/L BICARBONATE 38 (H) 21 - 28 mmol/L O2 SAT 95 94 - 98 % BASE EXCESS 11.8 (H) 0 - 3 mmol/L SITE RIGHT BRACHIAL DEVICE NASAL O2 O2 FLOW 4 L/min Performed by [id number] GODDARD, BLOOD Collection Time: 01/10/19 7:55 AMResult Value Ref Range Special Request s: NO SPECIAL REQUESTS Culture result: NO GROWTH AFTER 3 HOURSURINALYSIS W/ RFLX M ICROSCOPIC Collection Time: 01/10/19 8:48 AMResult Value Ref Range Color YELLOW YE L Appearance TURBID (A) CLEAR Specific gravity 1.016 1.003 - 1.030 pH (UA) 7.0 4.6 - 8.0 Protein NEGATIVE NEG mg/dL Glucose NEGATIVE NEG mg/dL Ketone NEGATIVE NEG mg/dL Bilirubin NEGATIVE NEG Blood NEGATIVE NEG Urobilinogen 0.2 0.2 - 1.0 EU/dL Ni trites NEGATIVE NEG Leukocyte Esterase NEGATIVE NEG WBC 5-10 0 - 5 /hpf RBC 20 -50 0 - 3 /hpf Epithelial cells 0-3 0 - 10 /hpf Bacteria NONE NONE /hpf Casts 5-10 (A) NONE /lpf Crystals, urine NONE NONE /LPFTYPE & SCREEN Collection Time: 01/10 11:29 AMResult Value Ref Range Crossmatch Expiration 01/13/2019 ABO/Rh(D) O POSITI VE Antibody screen NEGLACTIC ACID Collection Time: 01/10/19 11:29 AMResult Value Ref Range Lactic acid 0.9 0.4 - 2.0 MMOL/LABG:Recent Labs 7PH 7. 46*PCO2 53*PO2 66*HCO3 38*Recent Glucose Results:Lab ResultsComponent Value Date/ Time GLU 114 (H) 01/10/2019 07:40 AM@[email or web address] Results Procedure Component Value Units Date/Time CULTURE, URINE [[id number]] Col lected: 01/10/19 0858 Order Status: Completed Specimen: Urine from Clean ca tch Updated: CULTURE, BLOOD [[id number]] Collected: 01/10/19 0740 Or bassem Status: Completed Specimen: Blood Updated: 01/10/19 113 Special Request s: NO SPECIAL REQUESTS Culture result: NO GROWTH AFTER 3 HOURS CULTURE, BLOOD [[id number]] Collected: 01/10/19 0755 Order Status: Completed Specimen: Blood Upda mikel: 01/10/19 1131 Special Requests: NO SPECIAL REQUESTS Culture result: NO HAIDER WTH AFTER 3 HOURS CULTURE, BLOOD [[id number]] Collected: 01/10/19 0800 Order Status: Canceled Specimen: BloodImages:@[email or web address]@Xr Chest Sngl VResult Date: 12/25/2018Portable chest x-ray. PRIOR EXAM: X-ray 12/18/2018 HISTORY: Pneu monia FINDINGS:The heart is normal in size. The mediastinum and pulmonary vessels ar eunremarkable. There is a small right pleural effusion.. A tube projected overthe left upper quadrant of the abdomen..IMPRESSION: Small right pleural effusion.Ct Chest Wo ContResult Date: 01/10/2019CT CHEST WO CONT Clinical data: evaluation of pneumonia r t lung. Priors:12/18/2018 Technique: CT scan of the chest was performed from the thoraci c inletto below the diaphragm without administration of intravenous contrast. Theacquisition data was reviewed in the axial, sagittal and coronal plane.Utiliz ing silver holloware assembler algorithm the examination was performed to optimizeimaging quality by utilizing the lowest possible radiation dose. Findings: Thereis no evidence of p athological lymphadenopathy within the mediastinum, bilateralhilar and bilatera l axillary location. There is a 1.8 cm nodule along the rightwall of the trache a at the level of the thoracic inlet (best seen on image 13ofseries 2) not seen on the prior study. This may be due to a mucous plug. Noadditional endotracheal or endo bronchial lesion is noted.Normal heart size.Coronary artery calcifications note d. Atherosclerotic thoracic aorta withoutaneurysmal dilatation. Evaluation lung windows demonstrates patchy right lowerlobe lung infiltrate. There is asso ciated small right pleural effusion similarto prior. There is also small left pleural effusion with underlying passiveatelectasis slightly decreased from the prior study. No new lung pathology isobserved. Included upper abdominal organs: No significant p athology is observedwithin the visualized upper abdominal organs.IMPRESSION: Small bilateral pleural effusion. Right effusion is similar toprior study. Left effusion slightly decreased in size. Patchy right lungopacities which may be due to pneumo freddy similar to previous examinations. 1.8cm nodule along the right lateral wall of t he trachea at the level of thethoracic inlet not observed on the prior study and can be due to a mucous plug.Ct Chest Wo ContResult Date: 12/18/2018Referring Physi chaya: KRYSTIAN MONAE Patient Name: EVELIO CARLIN THIS IS AFINAL REPORT FROM [facility] DATE OF SERVICE: 2018-12-18 01:22:40 IMAGES:[id number] EXAM: CT CHEST WO CO NTRAST HISTORY: .. Right lower lobe atelectasis..TECHNIQUE: Helical axial im aging from the thoracic inlet through the adrenalglands without contrast. Sagittal and coronal reconstructions were obtained.COMPARISON: CT chest without co ntrast of 12/13/2018. FINDINGS: .. Evaluationremains limited due to lack of IV contrast and patient positioning. The imagedthyroid gland remains atrophic. Th e aorta remains normal in caliber.Atherosclerotic calcifications a re again seen in the aorta. There is againcardiomediastinal shift towards the right. The heart remains normal in size andno pericardial effusion is noted. No obvious lymphadenopathy seen on thisunenhanced scan. No pneumothorax is noted. Since the prior exam there is beenincrease in bilateral pleural effusi ons with associated consolidations. Acalcified granuloma is again seen in th e right lower lobe. The imaged upperabdomen does not demonstrate any gross acute maggy nges. Osteopenia is again noted.Degenerative changes again seen in the imaged spine. Old healed right posteriorlower rib fractures are again seen.IMPRESSION: .. Limited s tudy demonstrating increase in bilateral pleuraleffusions with associated consoli dations with persistent cardiomediastinal shifttowards the right. Stable findings as noted above.. One or more of the followingdose reduction techniques were used: automated exposure control, adjustment ofthe mA and/or kV according to patient size, use of iterative reconstructivetechnique. THIS DOCUMENT H BEEN ELECTRONICALLY SIGNED Kamran Gillette MD 12/18/2018 04:49 G[facility] [place] Please call [facility] [employer] Consultant [phone] with questions. This report was electronically signed by: Tala MENDEZ 12/18/2018 04: 50 [facility] [place] Chest Wo ContResult Date: 12/13/2018History: Respiratory difficulty . FINDINGS: CT scanning of the chest wasperformed helically from the lung api martine to the upper abdomen withoutintravenous contrast material. Sagittal and coronal reconstructed images aresubmitted. Scanning was performed utilizing dose lowering te chniques and iscompared to the prior study of 11/08/2018. The study is quite limited by patientpositioning. Evaluation of thoracic vascular structures is limited withoutin travenous contrast material does not reveal evidence of aneurysmal dilatationor defi nite CT evidence of dissection. Coronary artery calcification is seen.There is mi nimal calcification of the aortic arch. There is minimalcalcification of the descendin g thoracic aorta. There is no definite evidence ofany pathologically enlarged l ymph node in the visualized portions of themediastinum or axillae. Evaluation of pulmonary parenchymal structures revealssome atelectatic change in the right upper lo be. There is a small left pleuraleffusion as well as left basilar atelectatic change. There is some patchyopacity within the right middle lobe and right lower lobe which c ould also beinfiltrative in nature. Limited evaluation of upper abdominal structures isunremarkable. There is deviation of mediastinal structures to the right. Thi scould be as result of atelectatic change within the right lung. This has beenseen previously and is unchanged.IMPRESSION: Extremely limited study by patient posit ioning. Deviation ofmediastinal structures to the right as has been seen on prior stud ies. Leftpleural effusion. Bilateral infiltrates and atelectasis, greater on the rightthan the left.Cta Up Ext Lt W ContResult Date: 12/18/2018History: Arm cl audication. FINDINGS: CTA of the left upper extremity wasperformed helically from le ricky of the shoulder through the fingers after theintravenous administration of 119 cc of Isovue. Sagittal, coronal, and 3-Dreconstructed images obtained on an Realtime[employer] workstation are submitted. Noprior studies are available for comparison. Th e left subclavian artery is widelypatent. It is continuous with a widely patent left axillary artery. The axillaryartery is continuous with a widely patent left bra chial artery. The brachialartery bifurcates into a radial and ulnar artery just belo w the elbow. From thispoint distally streak artifact from patient positioning limits evaluation.However, the ulnar artery appears widely patent to the wrist. The radial a rteryis less well opacified but does appear patent to the wrist as well. Anintraosse ous artery also appears patent although it is poorly visualized aswell. The digital ar teries are not visualized on this study. There arebilateralpleural effusions note d both of which are moderate to large. Theeffusion on the left one is larger th an the right. Bibasilar atelectatic changethroughout much of the lower lobes is seen. There is a significant shift ofmediastinal structures to the right. T he liver is decreased in attenuationcompatible with fatty infiltr ation. The spleen is unremarkable. The adrenalglands are normal in appearance. The pancreas is grossly normal as is thegallbladder. A gastrostomy tube is no mikel in situ. The kidneys are unremarkable.There is a midline abdomina l wall hernia containing large and small bowel aswell as mesentery without eviden ce of obstruction. There is some presacralthickening and possibly some fr ee fluid noted. The patient is status post ORIFof the left hip with metallic hardwa re in situ.IMPRESSION: Patent left upper extremity arterial vessels although eval uationdistally is limited. Bilateral pleural effusions and bibasilar atelectasis.Shif t of mediastinal structures to the right.Ct Abd Pelv Wo ContResult Date: 12/21/2018His tory: ? Maturity of g-tube tract Technique: CT of the abdomen and pelvis wasperforme d from the dome of the diaphragm to the pubic symphysis without oral orintravenous con trast with dose lowering techniques. Sagittal and coronalreconstructions were performe d. Evaluation of solid abdominal viscera iscompromised by by the lack of intraven ous contrast. Evaluation of the bowelloops is compromised lack of oral contrast. All C T scans at this facility areperformed using dose optimization technique as appropria te to a performed exam,to include automated exposure control, adjustment of the mA a nd/or kV accordingto patient size (including appropriate matching first site-specific examinations), or use of iterative reconstruction technique. Comparison: CT scanof the chest performed 12/19/18 Findings: There is a small right pleural effusionw ith adjacent atelectasis. There is minimal left pleural fluid with adjacentatelecta sis. There is a pigtail catheter again identified on the left. The exactlocatio n of this catheter is difficult to ascertain benefits above the diaphragmto below the diaphragm. On today's study the tip appears to be located below thediaphragm. There is a small right pleural effusion with adjacent atelectasis.There is a G-tube i dentified in the stomach. The liver, gallbladder, spleen,pancreas, kidneys an d adrenal glands are unremarkable. No abdominal, pelvic oringuinal lymphadenop athy is identified. No free intraperitoneal fluid is noted.There is a ventral wall h ernia containing loops of what appear to be small bowelhowever are difficult to foll ow. There is mild perirectal stranding andpresacral edema correlate clinically. No dilated loops of bowel are identified.There is mild diverticulosis of the colon. The prostate, bladder and seminalvesicles appear unremarkable. The re are streak artifact obscuring portions ofthe pelvis due to a left hip ORIF. The re is subcutaneous gas identified alongthe right lower anterior pelvic wall.IMPRESS ION: There is a G-tube identified in the stomach. There is a tailcatheter identif ied on the left. The tip appears to be located below thediaphragm although is d ifficult to assess on CT. There is a small residualamount of pleural fluid as well as atelectasis along the left diaphragm. Thereis perirectal stranding and presacr al edema.Ct Thoracentesis Insrt Chest TubeResult Date: 12/19/2018History: Pleura l effusion. PROCEDURE: After being informed of the risks,benefits, and potential alt ernatives procedure informed consent was obtained.The patient was placed on the t able in the [id number] decubitus position.CT scanning was performed locat ion was chosen over the left flank. However, dueto the significant amount of patient motion and breathing motion was difficultto accurately assess a location for percuta neous paracentesis. Therefore, thiswas performed manually. After the chosen reg ion was prepped and draped in thenormal sterile fashion using maximum sterile ba rrier technique a lidocaineneedle was placed in the skin. This appeared to be in good position. Lidocainewas then used to anesthetize the skin and subcutaneous ti ssues in this location.Attempts were made to pass an 8 Congolese pigtail catheter throug h this location.However, patient continuous motion was significant as well as excess ivebreathing during the procedure. The catheter was placed at the same interspa ceas well as marked on the prior CT sequence however, due to the excessive patientmot ion the catheter was far more inferior within the chest that on the priorsequences. Th e catheter appeared to enter the hemiabdomen on the left from theleft chest. The cath eter was then pulled back to position where clear yellowfluid was aspirated. It was then sewn in position However, It appeared tomigrate forward and on the CT scanning appeared to again transgress thediaphragm. It was therefore pulled back to a point where only a clear fluid wasaspirated and respiratory variation was noted within t he tube. It was then sewnin position using 2-0 silk sutures. FINDINGS: Initial CT s debora revealed amoderate left pleural effusion. Attempts to nancy an adequate l ocation forpercutaneous thoracentesis were quite limited due to excessive patient m otionand breathing throughout the procedure. A location that appear to be a safelocat ion was marked. However, when the catheter was placed in this sameinterspace as wel l as marked the catheter appeared to be far more inferiorwithin the hemithorax than that seen previously. It appeared to enter the lefthemithorax inferiorly and transg ress the diaphragm with no evidence pathologicsequela. Therefore, it was pul led back into the pleural space for adequatedrainage. 130 cc of lightly bloo d-tinged fluid was aspirated. The catheter wasattached to a Pleur-evac and wall suc tion.IMPRESSION: Left-sided thoracentesis described above.Xr Chest PortResult Date : 01/10/2019XR CHEST PORT Clinical data: Sepsis Priors: 12/29/2018. Findings: Exam ination iscompromised due to limited inspiration and patient rotation. Heart size isunchanged. Haziness seen at the right lung base can be due to small effu sionwith atelectasis/infiltrate. No confluent left lung process is seen. No evidence of CHF.IMPRESSION: Limited study. Suspect right lung base process which ma y be due tosmall effusion with atelectasis/infiltrate.Xr Chest PortResu lt Date: 12/29/2018History: leukocytosis Technique: Portable chest x-ray 9 11:01 AMComparison: 12/25/2018. FINDINGS: There is a right lower lobe infiltrate o ratelectasis which is increased since prior exam. There is poor inspiration.There is a small left pleural effusion. The exam is rotated. Evaluation of thecardiac silhou ette is limited by projection. The visualized osseous structuresappear unremarkable.IM PRESSION: There is a right lower lobe infiltrate or atelectasis which isincrea sed since prior exam.Xr Chest PortResult Date: 12/18/2018Portable chest x-ray. PRIO R EXAM: 12/12/2018 and 11/25/2018 HISTORY: Pneumonia andpleural effusions FINDINGS: The heart is normal in size. The mediastinum andpulmonary vessels are unremarkable. T here is haziness within the lung basesbilaterally... The bony structures are intact.IMPRESSION: Haziness within the lung bases bilaterally that could repres entsmall pleural effusions and/or subsegmental atelectasis. Similar findin gs wereseen on prior exams.Xr Chest PortResult Date: 12/13/2018History: Respi ratory difficulty. FINDINGS: A frontal portable view of the chestis compared to the prior study from earlier in the same day. EKG leads overliethe chest. The car diac silhouette is normal in size. The left lung is clear. Theright lung is poorly e valuated due to significant rotation. The possibility ofright basilar infiltrate o r atelectatic change cannot be excluded. Mediastinaland hilar structures are poor ly evaluated as well.IMPRESSION: Study quite limited due to rotation. Opacity at the right lung basemay be infiltrative or atelectatic in nature.Xr Chest PortResul t Date: 12/12/2018History: Fever. Lethargy. FINDINGS: 2 frontal views of the chest a re compared tothe prior study of 11/25/2018. EKG leads overlie the chest. The cardiac silhouette is normal in size. There may be some streaky changes at the lungbases. E valuation of the lungs and mediastinal structures is quite limited dueto rotati on.IMPRESSION: Study quite limited by rotation. Basilar streaks noted.Duplex U pper Ext Venous LeftResult Date: 12/26/2018DUPLEX UPPER EXT VENOUS LEFT Cl inical Data: Arm swelling, DVT suspectedFindings: The visualized segmen ts of the left upper extremity venous circulationfrom the level of the subclav deondre vein to the brachial vein is compressible andshows normal phasic flow without an i ntraluminal thrombus. In addition, theinternal jugular vein and the basilic vein is also patent. Extremely limitedexam because the patient was unable to geo ate and this was done in a portablefashion.IMPRESSION: No evidence of deep vein thrombosis within the visualized left upperextremity venous circulation. Limited study.Medications:Current Facility-Administered MedicationsMedicat ion Dose Route Frequency sodium chloride (NS) flush 5-10 mL 5-10 mL IntraVENous PRN budesonide (PULMICORT) 500 mcg/2 ml nebulizer suspension 500 mcg Nebulizati onBID cholestyramine-aspartame (QUESTRAN LIGHT) packet 4 g 4 g Oral TID WITH MCKENZIE LS [START ON 01/11/2019] cinacalcet (SENSIPAR) tablet 60 mg 60 mg Oral KYLEIGH Y lamoTRIgine (LaMICtal) tablet 50 mg 50 mg Per G Tube BID [START ON 01/11/2019] mul tivitamin (ONE A DAY) tablet 1 Tab 1 Tab Per G TubeDAILY [START ON 01/11/2019] pantop razole (PROTONIX) granules for oral suspension 40mg 40 mg Per G Tube ACB v alproic acid (as sodium salt) (DEPAKENE) 250 mg/5 mL (5 mL) oral solution 750mg 750 mg Oral BID ALPRAZolam (XANAX) tablet 0.5 mg 0.5 mg Per G Tube QHS 0.9% sodium chlo ride infusion 50 mL/hr IntraVENous CONTINUOUS acetaminophen (TYLENOL) solu tion 650 mg 650 mg Oral Q4H PRN heparin (porcine) injection 5,000 Units 5,000 U nits SubCUTAneous Q12H influenza vaccine 2018- (65 yrs+)(PF) (FLUZONE HIGH-DOSE ) injection 0.5 mL0.5 mL IntraMUSCular PRIOR TO DISCHARGE albuterol-ipratropium (DUO -NEB) 2.5 MG-0.5 MG/3 ML 3 mL Nebulization Q6H RT piperacillin-tazobactam (ZOSYN) 3.375 g in 0.9% sodium chloride (MBP/ADV) 100mL MBP 3.375 g IntraVENous [id number] Problems: Acute respiratory failure with hypoxia (HCC) (01/10/2019) Pneumonia inv olving right lung (01/10/2019) Hyponatremia (01/10/2019)Assessment:1. ACUTE HYPERCAP NICOLAS AND HYPOXIC RESPIRATORY FAILURE2. ATELECTASIS R U L3. PNEUMONIA R L L A ND L L L4. AC COPD5. MENTAL RETARDATION6. R U L NODULE 1.8 CM ? VASCULAR , NE EDS CAT SCAN CHEST WITH CONTRAST7. DYSPHAGIA8. EPILEPSYPLAN :CULTURE BLOO D , SPUTUM , URINE AGREE WITH I V ZOSYNDUO NEB Q 4 H BIPAP FOR RESPIRATORY . D ISTRESS BUDESONIDE 500 MCG VIA MINI NEB Q 1 2 H REPEAT CAT SCAN CHEST WITH I V C ONTRAST WHE N PATIENTY IS STABLE FOR R UL NODULE PROGNOSIS IS GUARDEDNihal Sa davis MD F.C.C.P.January 10, 20194:38 PM Name Value Range Interpretation Code Description Data Harriett rce(s) Supporting Document(s ) ID Date Data Source [id number] 01/10/2019 04:45:29 PM EDT [facility] Infectious Disease ConsultToday's Date: 01/10/2019Admit Date: 01/10/2019Subjective:Date of Consultation: January 10, 2019Refe rring Physician: Justice Hills is a 68 y.o. male who is being seen for pneumonia.Pat ient with historyof COPD,aspiration pneumonia,mental retardation,s/p peg tub e,schizophrenia wastransferred from the long-term for respiratory distress an d low oxygensaturation.Patient is non verbal unable to provide any history.History ob tainedfrom chart review. .Patient Active Problem ListDiagnosis Code Paraesophage al hiatal hernia K44.9 COPD (chronic obstructive pulmonary disease) (HCC) J44 .9 Acute respiratory distress R06.03 Pneumonia J18.9 COPD exacerbation ([facility]) J44.1 Sepsis due to undetermined organism ([facility]) A41.9 Generalized anxiety disorde r F41.1 Acute respiratory failure with hypoxia ([facility]) J96.01 Pneumonia involvin g right lung J18.9 Hyponatremia E87.1Past Medical History:Diagnosis Date Chronic obstructive pulmonary disease (HCC) GERD (gastroesophageal reflux disease) Hyper parathyroidism (HCC) Mental retardation Parkinsonism due to drug ([facility]) Pneumoni a Psychiatric disorder Pulmonary emboli ([facility]) Schizophrenia ([facility])No family hist ory on file.Social HistoryTobacco Use Smoking status: Never Smoker Smokeless tobacco: Never UsedSubstance Use Topics Alcohol use: NoNo past surgical history on file.Prior to Admission medicationsMedication Sig Start Date End Date Taking? Authorizing Providerclorazepate (TRANXENE) 3.75 mg tablet 1 Tab by Per G Tube route nightly. MaxDaily Amount: 3.75 mg. 12/30/18 Mili Hills DOmultivi tamin (ONE A DAY) tablet 1 Tab by Per G Tube route daily. 12/30/18Mili Hills DOc inacalcet (SENSIPAR) 30 mg tablet Take 2 Tabs by mouth daily. 12/30/18 Mili Hills DOlamoTRIgine (LAMICTAL) 25 mg tablet 2 Tabs by Per G Tube route two (2) times a day. 12/30/18 Mili Hills DOalbuterol-ipratropium (DUO-NEB) 2.5 mg -0.5 mg/3 ml nebu 3 mL by Nebulizationroute every six (6) hours. Every 6 hours while awake 12/30/18 Mili Hills DOalbuterol-ipratropium (DUO-NEB ) 2.5 mg-0.5 mg/3 ml nebu 3 mL by Nebulizationroute every four (4) hours a s needed for Cough (wheezing, shortness of breath).12/30/18 Mili Hills DObud esonide (PULMICORT) 0.5 mg/2 mL nbsp 2 mL by Nebulization route two (2) timesa day. Mili Hills DObacitracin 500 unit/gram ointment Apply 1 Packet to aff ected area two (2) timesa day. Indications: minor skin infection due to bacteria, fa cial scabs 12/30/18Mili Hills DOcholestyramine-aspartame (QUESTRAN LIG HT) 4 gram packet Take 1 Packet by mouththree (3) times daily (with meals). 12/30/18 Mili Hills DOpantoprazole (PROTONIX) 40 mg granules for oral suspension 40 mg by Per G Tuberoute Daily (before breakfast). 11/28/18 Mili Hills DOvalproate ( DEPAKENE) 250 mg/5 mL syrup Take 750 mg by mouth two (2) times a day.Provider, Jazmine Thao Known AllergiesReview of SystemsPatient is unable to provide due to mental statusObjective:Visit VitalsBP 97/62 (BP 1 Location: Right arm, BP Siri ent Position: At rest)Pulse 82Temp 97.8 F (36.6 C)Resp 22Ht 5' 2" (1.575 m)Wt 51. 7 kg (114 lb)SpO2 93%BMI 20.85 kg/m Temp (24hrs), Av F (37.8 C), Min:97.8 F (36.6 C), Max:102.4 F (39.1 C)Lines: Peripheral IV:Physical Exam:General: Le thargic non verbal, cooperative, no distress, appears stated age.onnasal canula.Eyes: Conjunctivae pallor,corneas clear. PERRLNeck: Supple, symmetrical, trachea midline, no adenopathyLungs: Bilateral breath sounds with basal crackles..Heart : Regular rate and rhythm, S1, S2 normal, no murmurAbdomen: Soft, non-tender. Bowel sounds normal. No masses, No organomegaly.+feeding tubeBack: No CV A tenderness.Extremities: No cyanosis,chronic lymphedemaPulses: 2+ and symmetric all e xtremities.Skin: Skin color, texture, turgor normal. No rashes or lesionsLymph nodes: Cervical, supraclavicular, and axillary nodes normal.Neurologic: Lethargic non v erbalData Review:Labs:Recent Results (from the past 24 hour(s))EKG, 12 LEAD, INITIA L Collection Time: 01/10/19 7:34 AMResult Value Ref Range Ventricular Rate 110 BPM Atrial Rate 109 BPM P-R Interval 148 ms QRS Duration 88 ms Q-T Interval 304 ms QTC C alculation (Bezet) 411 ms Calculated P [place] 49 degrees Calculated R [place] 62 degrees Calculated T [place] 1 degrees Diagnosis Sinus tachycardiaCULTURE, BLOOD Collection Patria e: 01/10/19 7:40 AMResult Value Ref Range Special Requests: NO SPECIAL REQUESTS Cu lture result: NO GROWTH AFTER 3 HOURSLACTIC ACID Collection Time: 01/10/19 7:40 AMR esult Value Ref Range Lactic acid 1.9 0.4 - 2.0 MMOL/LMETABOLIC PANEL, COMPREHENSIVE Collection Time: 01/10/19 7:40 AMResult Value Ref Range Sodium 126 (L) 136 - 145 mmol/L Potassium 4.5 3.5 - 5.1 mmol/L Chloride 87 (L) 98 - 107 mmol/L CO2 38 ( H) 21 - 32 mmol/L Anion gap 6 (L) 10 - 20 mmol/L Glucose 114 (H) 74 - 106 mg/dL BU N 7 7 - 18 mg/dL Creatinine 0.48 (L) 0.70 - 1.30 mg/dL GFR est AA >60 >60 ml/min/1.7 3m2 GFR est non-AA >60 >60 ml/min/1.73m2 Calcium 9.4 8.5 - 10.1 mg/dL Bilirubin, total 0.2 0.2 - 1.0 mg/dL ALT (SGPT) 12 (L) 13 - 61 U/L AST (SGOT) 13 (L) 15 - 37 U/ L Alk. phosphatase 61 45 - 117 U/L Protein, total 7.4 6.4 - 8.2 g/dL Albumin 2.3 (L) 3.5 - 4.7 g/dL Globulin 5.1 (H) 1.7 - 4.7 g/dL A-G Ratio 0.5 (L) 0.7 - 2.8CBC WITH AUTOMATED DIFF Collection Time: 01/10/19 7:40 AMResult Value Ref Range WBC 10.4 4 .8 - 10.6 K/uL RBC 3.58 (L) 4.70 - 6.00 M/uL HGB 12.0 (L) 14.0 - 18.0 g/dL HCT 36.2 ( L) 42.0 - 52.0 % MCV 101.1 (H) 81.0 - 94.0 FL MCH 33.5 27.0 - 35.0 PG MCHC 33.1 30.7 - 37.3 g/dL RDW 16.4 (H) 11.5 - 14.0 % PLATELET 233 130 - 400 K/uL MPV 8.9 (L) 9.2 - 11.8 FL NEUTROPHILS 85 (H) 48.0 - 72.0 % LYMPHOCYTES 8 (L) 18.0 - 40.0 % MONOCY TASHA 5 2.0 - 12.0 % EOSINOPHILS 2 0.0 - 7.0 % BASOPHILS 0 0.0 - 3.0 % ABS. NEUTROPHILS 8.9 (H) 1.5 - 6.6 K/UL ABS. LYMPHOCYTES 0.8 (L) 1.5 - 3.5 K/UL ABS. MONOCYTES 0.6 0. 0 - 1.0 K/UL ABS. EOSINOPHILS 0.2 0.0 - 0.7 K/UL ABS. BASOPHILS 0.0 0.0 - 0.1 K/UL D F AUTOMATED IMMATURE GRANULOCYTES 0 0.0 - 2.0 % RBC COMMENTS 1+MACROCYTOSIS PLATELET E STIMATE ADEQUATETROPONIN I Collection Time: 01/10/19 7:40 AMResult Value Ref Range Troponin-I, Qt. <0.02 0.00 - 0.05 NG/MLCK Collection Time: 01/10/19 7:40 AMResult Value Ref Range CK 29 (L) 39 - 308 U/LBNP Collection Time: 01/10/19 7:40 AMResult Value Ref Range BNP 28 0 - 100 pg/mLPTT Collection Time: 01/10/19 7:40 AMResult Value Ref Range aPTT 25.3 21.0 - 28.0 SECPROTHROMBIN TIME + INR Collection Patria e: 01/10/19 7:40 AMResult Value Ref Range Prothrombin time 10.3 9.4 - 11.1 sec INR 1.0 0.8 - 1.2BLOOD GAS, ARTERIAL Collection Time: 01/10/19 7:47 AMResult Value Ref Range pH 7.46 (H) 7.35 - 7.45 PCO2 53 (H) 32 - 48 mmHg PO2 66 (L) 83 - 108 mmHg CO2, TOTAL 39 (H) 19 - 24 mmol/L BICARBONATE 38 (H) 21 - 28 mmol/L O2 SAT 95 94 - 98 % B ASE EXCESS 11.8 (H) 0 - 3 mmol/L SITE RIGHT BRACHIAL DEVICE NASAL O2 O2 FLOW 4 L/min Performed by [id number], BLOOD Collection Time: 01/10/19 7:55 AMResult Value Ref Range Special Requests: NO SPECIAL REQUESTS Culture result: NO GROWTH AFTER 3 HOURSU RINALYSIS W/ RFLX MICROSCOPIC Collection Time: 01/10/19 8:48 AMResult Value Ref Range Color YELLOW YEL Appearance TURBID (A) CLEAR Specific gravity 1.016 1.003 - 1.0 30 pH (UA) 7.0 4.6 - 8.0 Protein NEGATIVE NEG mg/dL Glucose NEGATIVE NEG mg/dL Ke tone NEGATIVE NEG mg/dL Bilirubin NEGATIVE NEG Blood NEGATIVE NEG Urobilinogen 0.2 0.2 - 1.0 EU/dL Nitrites NEGATIVE NEG Leukocyte Esterase NEGATIVE NEG WBC 5-1 0 0 - 5 /hpf RBC 20-50 0 - 3 /hpf Epithelial cells 0-3 0 - 10 /hpf Bacteria NONE NONE /hpf Casts 5-10 (A) NONE /lpf Crystals, urine NONE NONE /LPFTYPE & SCREEN Collec tion Time: 01/10/19 11:29 AMResult Value Ref Range Crossmatch Expiration 01/13/2019 A JEFF/Rh(D) O POSITIVE Antibody screen NEGLACTIC ACID Collection Time: 01/10/19 11:29 AMR esult Value Ref Range Lactic acid 0.9 0.4 - 2.0 MMOL/LMicrobiology:Cultures:Lab Resu ltsComponent Value Date/Time Culture result: NO GROWTH AFTER 3 HOURS 01/10/2019 07:55 AM Culture result: NO GROWTH AFTER 3 HOURS 01/10/2019 07:40 AM Culture result: NO G ROWTH 5 DAYS 12/29/2018 11:23 AMImaging:Xr Chest Sngl VResult Date: 12/25/2018Portab le chest x-ray. PRIOR EXAM: X-ray 12/18/2018 HISTORY: Pneumonia FINDINGS:The heart is normal in size. The mediastinum and pulmonary vessels areunremarkable. There is a small right pleural effusion.. A tube projected overthe left upper quadrant of the abdomen..IMPRESSION: Small right pleural effusion.Xr Chest Sngl VResult Date: 11/13AP portable film of the chest clinical indication pneumonia Study is compared t oprevious examination of November 22, 2018. Study demonstrates a left pleuraleffusio n as well as infiltrate at the left base. This was present on previousstudy. There has been interval development of a small right pleural effusionwith linear streak ing at the right base this may represent infiltrate oratelectasis. Heart size dif ficult to evaluate.IMPRESSION: Infiltrate left base with pleural effusion, right p leural effusionwith streaking at right lower lung field which may represent infiltrat e oratelectasisXr Chest Sngl VResult Date: 11/22/2018History: PNEUMONIA Technique: P ortable chest x-ray 11/22/2018 8:03 AM Comparison:11/21/2018. FINDINGS: The exam is rotated. There is a small left pleural effusionwith probable infiltrate or atel ectasis. There is improved aeration of the rightlung since the prior. Evaluation of the cardiac silhouette is limited byprojection. The visualized osseous str uctures appear unremarkable.IMPRESSION: There is a small left pleural effusion with pr obable infiltrate oratelectasis. There is improved aeration of the right lung sinc e the prior.Xr Abd (kub)Result Date: 11/22/2018EXAM: XR ABD (KUB) INDICATION: ileus COMPARISON: None. FINDINGS: A supineradiograph of the abdomen shows a normal bowel gas pattern. No soft tissuemasses or pathologic calcification s are identified. The bones and soft tissuesare within normal limits. There i s moderate fecal material overlying the pelvis.There are skin kalpana along the midline.IMPRESSION: No dilated loops of bowel are identified to suggest obstruction.Xr Abd (kub)Result Date: 11/19/2018XR ABD (KUB)-SINGLE VIEW PRIOR: None HISTORY: E valuate for G-tube placementFINDINGS: The examination is limited-the pt is in an R AO/LPO position. A tubeoverlies the abdomen extending from the right lower quadrant to the left upperquadrant and whether this represents a gastric tube cannot be defi nitivelydetermined. The bowel gas pattern is nonspecific. No abnormally dilated loop ofbowel, bowel wall thickening, pneumatosis or free air is identified. No abnormalde nsities or calcifications are identified. There are midline surgical skinstaples i dentified. The visualized osseous structures are unremarkable.IMPRESSION: 1. Tube ov erlying the abdomen terminating in the region of stomach;as described and discussed ab ove on this single oblique view the exact locationof this tube cannot be determine d. 2. Otherwise unremarkable abdomen/KUB.Ct Chest Wo ContResult Date: 01/10/2019CT CH EST WO CONT Clinical data: evaluation of pneumonia rt lung. Priors:12/18/2018 Techn ique: CT scan of the chest was performed from the thoracic inletto below the diaphragm without administration of intravenous contrast. Theacquisition data was revie wed in the axial, sagittal and coronal plane.Utilizing silver holloware assembler algorithm t he examination was performed to optimizeimaging quality by utilizing the lowest possible radiation dose. Findings: Thereis no evidence of pathological lymp hadenopathy within the mediastinum, bilateralhilar and bilateral axillary lo cation. There is a 1.8 cm nodule along the rightwall of the trachea at the level of the thoracic inlet (best seen on image 13ofseries 2) not seen on the prior stud y. This may be due to a mucous plug. Noadditional endotracheal or endobronchi al lesion is noted.Normal heart size.Coronary artery calcifications noted. Atheroscle rotic thoracic aorta withoutaneurysmal dilatation. Evaluation lung windows demo nstrates patchy right lowerlobe lung infiltrate. There is associated small ri ght pleural effusion similarto prior. There is also small left pleural effusion with underlying passiveatelectasis slightly decreased from the prior study. No new lung pathology isobserved. Included upper abdominal organs: No significant patholo gy is observedwithin the visualized upper abdominal organs.IMPRESSION: Small bilat eral pleural effusion. Right effusion is similar toprior study. Left effusion sl ightly decreased in size. Patchy right lungopacities which may be due to pneumo freddy similar to previous examinations. 1.8cm nodule along the right lateral wall of t he trachea at the level of thethoracic inlet not observed on the prior study and can be due to a mucous plug.Ct Chest Wo ContResult Date: 12/18/2018Referring Physi chaya: CHASIDYJOSE MONAE Patient Name: EVELIO CARLIN THIS IS AFINAL REPORT FROM [facility] DATE OF SERVICE: 2018-12-18 01:22:40 IMAGES:[id number] EXAM: CT CHEST WO CO NTRAST HISTORY: .. Right lower lobe atelectasis..TECHNIQUE: Helical axial im aging from the thoracic inlet through the adrenalglands without contrast. Sagittal and coronal reconstructions were obtained.COMPARISON: CT chest without co ntrast of 12/13/2018. FINDINGS: .. Evaluationremains limited due to lack of IV contrast and patient positioning. The imagedthyroid gland remains atrophic. Th e aorta remains normal in caliber.Atherosclerotic calcifications a re again seen in the aorta. There is againcardiomediastinal shift towards the right. The heart remains normal in size andno pericardial effusion is noted. No obvious lymphadenopathy seen on thisunenhanced scan. No pneumothorax is noted. Since the prior exam there is beenincrease in bilateral pleural effusi ons with associated consolidations. Acalcified granuloma is again seen in th e right lower lobe. The imaged upperabdomen does not demonstrate any gross acute maggy nges. Osteopenia is again noted.Degenerative changes again seen in the imaged spine. Old healed right posteriorlower rib fractures are again seen.IMPRESSION: .. Limited s tudy demonstrating increase in bilateral pleuraleffusions with associated consoli dations with persistent cardiomediastinal shifttowards the right. Stable findings as noted above.. One or more of the followingdose reduction techniques were used: automated exposure control, adjustment ofthe mA and/or kV according to patient size, use of iterative reconstructivetechnique. THIS DOCUMENT H BEEN ELECTRONICALLY SIGNED Kamran Gillette MD 12/18/2018 04:49 [facility] [place] Please call [facility] [employer] [facility] [phone] with questions. This report was electronically signed by: Tala MENDEZ 12/18/2018 04: 50 [facility] [place] Chest Wo ContResult Date: 12/13/2018History: Respiratory difficulty . FINDINGS: CT scanning of the chest wasperformed helically from the lung api martine to the upper abdomen withoutintravenous contrast material. Sagittal and coronal reconstructed images aresubmitted. Scanning was performed utilizing dose lowering te chniques and iscompared to the prior study of 11/08/2018. The study is quite limited by patientpositioning. Evaluation of thoracic vascular structures is limited withoutin travenous contrast material does not reveal evidence of aneurysmal dilatationor defi nite CT evidence of dissection. Coronary artery calcification is seen.There is mi nimal calcification of the aortic arch. There is minimalcalcification of the descendin g thoracic aorta. There is no definite evidence ofany pathologically enlarged l ymph node in the visualized portions of themediastinum or axillae. Evaluation of pulmonary parenchymal structures revealssome atelectatic change in the right upper lo be. There is a small left pleuraleffusion as well as left basilar atelectatic change. There is some patchyopacity within the right middle lobe and right lower lobe which c ould also beinfiltrative in nature. Limited evaluation of upper abdominal structures isunremarkable. There is deviation of mediastinal structures to the right. Thi scould be as result of atelectatic change within the right lung. This has beenseen previously and is unchanged.IMPRESSION: Extremely limited study by patient posit ioning. Deviation ofmediastinal structures to the right as has been seen on prior stud ies. Leftpleural effusion. Bilateral infiltrates and atelectasis, greater on the rightthan the left.Cta Chest W Or W Wo ContResult Date: 11/08/2018Examination: CTA Chest ? PE angiography History: Hypoxia; rule out pneumoniaversus pulmonary embol ism Priors: None Technique: Low-dose, multiplanar,helical CTA chest was perfor med with bolus IV injection from lung apices tobases. 3D-reformatted images were obt ained and reviewed on a dedicated viewingworkstation and directly supervis ed. Contrast: A total of 71 mL of Isovue-370was administered intravenously for this procedure. Findings: No evidence ofpulmonary embolism is seen. There is d ecreased size of the right hemithorax fromchronic scarring and retraction with mediastinal shift left to right.Additional area of consolidation is seen in the rig ht lower lobe and suggestssuperimposed pneumonia with subsegmental atelectasis. Subsegmental atelectasisis also noted in the left lung base, with pleural parench ymal scarring. Lowlung volumes are seen. No pneumothorax seen. Aorta normal in calib er withoutaneurysm or dissection. Mediastinum no adenopathy. Mediastinal shift is see n inthe left and right as a result of chronic changes in the right hemithorax. Heart shows no chamber enlargement or pericardial effusion. No acute fractures seen in the bony thorax, sternum, manubrium and rib cage. Multiple compressiondefor mities are seen in the mid and lower thoracic spine, with superimposedspondyloarthropa thy. Cannot exclude acute fracture.Impression: No evidence of pul monary embolism Right lower lobe pneumoniasuggested. Incidental scarring and retraction in the right hemithorax fromremote/chronic inflammatory disease and/or trauma. Bibasilar subsegmentalatelectasis. Report Electron ically Signed By: Pawel Zafar M.D. -11/08/2018 12:40 AMCta Up Ext Lt W ContR esult Date: 12/18/2018History: Arm claudication. FINDINGS: CTA of the left upper extremity wasperformed helically from level of the shoulder through the finger s after theintravenous administration of 119 cc of Isovue. Sagittal, coronal, and 3-D reconstructed images obtained on an independent workstation are submitted. N oprior studies are available for comparison. The left subclavian artery is widelypate nt. It is continuous with a widely patent left axillary artery. The axillaryartery is continuous with a widely patent left brachial artery. The brachialartery bifu rcates into a radial and ulnar artery just below the elbow. From thispoint distally streak artifact from patient positioning limits evaluation.However, the ulnar art james appears widely patent to the wrist. The radial arteryis less well opacified but does appear patent to the wrist as well. Anintraosseous artery also appears paten t although it is poorly visualized aswell. The digital arteries are not visualized on this study. There arebilateralpleural effusions noted both of which are modera te to large. Theeffusion on the left one is larger than the right. Bibasilar atelect atic changethroughout much of the lower lobes is seen. There is a significant shift of mediastinal structures to the right. The liver is decreased in attenuationcompati ble with fatty infiltration. The spleen is unremarkable. The adrenalglands are norm al in appearance. The pancreas is grossly normal as is thegallbladder. A gastrosto my tube is noted in situ. The kidneys are unremarkable.There is a midline abdomina l wall hernia containing large and small bowel aswell as mesentery without eviden ce of obstruction. There is some presacralthickening and possibly some fr ee fluid noted. The patient is status post ORIFof the left hip with metallic hardwa re in situ.IMPRESSION: Patent left upper extremity arterial vessels although eval uationdistally is limited. Bilateral pleural effusions and bibasilar atelectasis.Shif t of mediastinal structures to the right.Ct Abd Pelv Wo ContResult Date: 12/21/2018His tory: ? Maturity of g-tube tract Technique: CT of the abdomen and pelvis wasperforme d from the dome of the diaphragm to the pubic symphysis without oral orintravenous con trast with dose lowering techniques. Sagittal and coronalreconstructions were performe d. Evaluation of solid abdominal viscera iscompromised by by the lack of intraven ous contrast. Evaluation of the bowelloops is compromised lack of oral contrast. All C T scans at this facility areperformed using dose optimization technique as appropria te to a performed exam,to include automated exposure control, adjustment of the mA a nd/or kV accordingto patient size (including appropriate matching first site-specific examinations), or use of iterative reconstruction technique. Comparison: CT scanof the chest performed 12/19/18 Findings: There is a small right pleural effusionw ith adjacent atelectasis. There is minimal left pleural fluid with adjacentatelecta sis. There is a pigtail catheter again identified on the left. The exactlocatio n of this catheter is difficult to ascertain benefits above the diaphragmto below the diaphragm. On today's study the tip appears to be located below thediaphragm. There is a small right pleural effusion with adjacent atelectasis.There is a G-tube i dentified in the stomach. The liver, gallbladder, spleen,pancreas, kidneys an d adrenal glands are unremarkable. No abdominal, pelvic oringuinal lymphadenop athy is identified. No free intraperitoneal fluid is noted.There is a ventral wall h ernia containing loops of what appear to be small bowelhowever are difficult to foll ow. There is mild perirectal stranding andpresacral edema correlate clinically. No dilated loops of bowel are identified.There is mild diverticulosis of the colon. The prostate, bladder and seminalvesicles appear unremarkable. The re are streak artifact obscuring portions ofthe pelvis due to a left hip ORIF. The re is subcutaneous gas identified alongthe right lower anterior pelvic wall.IMPRESS ION: There is a G-tube identified in the stomach. There is a tailcatheter identif ied on the left. The tip appears to be located below thediaphragm although is d ifficult to assess on CT. There is a small residualamount of pleural fluid as well as atelectasis along the left diaphragm. Thereis perirectal stranding and presacr al edema.Ct Thoracentesis Insrt Chest TubeResult Date: 12/19/2018History: Pleura l effusion. PROCEDURE: After being informed of the risks,benefits, and potential alt ernatives procedure informed consent was obtained.The patient was placed on the t able in the [id number] decubitus position.CT scanning was performed locat ion was chosen over the left flank. However, dueto the significant amount of patient motion and breathing motion was difficultto accurately assess a location for percuta neous paracentesis. Therefore, thiswas performed manually. After the chosen reg ion was prepped and draped in thenormal sterile fashion using maximum sterile ba rrier technique a lidocaineneedle was placed in the skin. This appeared to be in good position. Lidocainewas then used to anesthetize the skin and subcutaneous ti ssues in this location.Attempts were made to pass an 8 Congolese pigtail catheter throug h this location.However, patient continuous motion was significant as well as excess ivebreathing during the procedure. The catheter was placed at the same interspa ceas well as marked on the prior CT sequence however, due to the excessive patientmot ion the catheter was far more inferior within the chest that on the priorsequences. Th e catheter appeared to enter the hemiabdomen on the left from theleft chest. The cath eter was then pulled back to position where clear yellowfluid was aspirated. It was then sewn in position However, It appeared tomigrate forward and on the CT scanning appeared to again transgress thediaphragm. It was therefore pulled back to a point where only a clear fluid wasaspirated and respiratory variation was noted within t he tube. It was then sewnin position using 2-0 silk sutures. FINDINGS: Initial CT s debora revealed amoderate left pleural effusion. Attempts to nancy an adequate l ocation forpercutaneous thoracentesis were quite limited due to excessive patient m otionand breathing throughout the procedure. A location that appear to be a safelocat ion was marked. However, when the catheter was placed in this sameinterspace as wel l as marked the catheter appeared to be far more inferiorwithin the hemithorax than that seen previously. It appeared to enter the lefthemithorax inferiorly and transg ress the diaphragm with no evidence pathologicsequela. Therefore, it was pul led back into the pleural space for adequatedrainage. 130 cc of lightly bloo d-tinged fluid was aspirated. The catheter wasattached to a Pleur-evac and wall suc tion.IMPRESSION: Left-sided thoracentesis described above.Xr Chest PortResult Date : 01/10/2019XR CHEST PORT Clinical data: Sepsis Priors: 12/29/2018. Findings: Exam ination iscompromised due to limited inspiration and patient rotation. Heart size isunchanged. Haziness seen at the right lung base can be due to small effu sionwith atelectasis/infiltrate. No confluent left lung process is seen. No evidence of CHF.IMPRESSION: Limited study. Suspect right lung base process which ma y be due tosmall effusion with atelectasis/infiltrate.Xr Chest PortResu lt Date: 12/29/2018History: leukocytosis Technique: Portable chest x-ray 9 11:01 AMComparison: 12/25/2018. FINDINGS: There is a right lower lobe infiltrate o ratelectasis which is increased since prior exam. There is poor inspiration.There is a small left pleural effusion. The exam is rotated. Evaluation of thecardiac silhou ette is limited by projection. The visualized osseous structuresappear unremarkable.IM PRESSION: There is a right lower lobe infiltrate or atelectasis which isincrea sed since prior exam.Xr Chest PortResult Date: 12/18/2018Portable chest x-ray. PRIO R EXAM: 12/12/2018 and 11/25/2018 HISTORY: Pneumonia andpleural effusions FINDINGS: The heart is normal in size. The mediastinum andpulmonary vessels are unremarkable. T here is haziness within the lung basesbilaterally... The bony structures are intact.IMPRESSION: Haziness within the lung bases bilaterally that could repres entsmall pleural effusions and/or subsegmental atelectasis. Similar findin gs wereseen on prior exams.Xr Chest PortResult Date: 12/13/2018History: Respi ratory difficulty. FINDINGS: A frontal portable view of the chestis compared to the prior study from earlier in the same day. EKG leads overliethe chest. The car diac silhouette is normal in size. The left lung is clear. Theright lung is poorly e valuated due to significant rotation. The possibility ofright basilar infiltrate o r atelectatic change cannot be excluded. Mediastinaland hilar structures are poor ly evaluated as well.IMPRESSION: Study quite limited due to rotation. Opacity at the right lung basemay be infiltrative or atelectatic in nature.Xr Chest PortResul t Date: 12/12/2018History: Fever. Lethargy. FINDINGS: 2 frontal views of the chest a re compared tothe prior study of 11/25/2018. EKG leads overlie the chest. The cardiac silhouette is normal in size. There may be some streaky changes at the lungbases. E valuation of the lungs and mediastinal structures is quite limited dueto rotati on.IMPRESSION: Study quite limited by rotation. Basilar streaks noted.Xr Chest PortResult Date: 11/21/2018AP portable film of the chest clinical indication pneumonia Study is compared toprevious examination of November 19, 2018. There has been partial clearing ofstreaky changes seen at the right base. There has been interval developmen t ofsome haziness at the left base as well as elevation of the left leaf of thediaphra gm. Heart size is difficult to evaluate.IMPRESSION: 1. Partial clearing of streaks at right base. 2. Haziness at leftbase which may represent infiltrateX r Chest PortResult Date: 11/19/2018History: Respiratory difficulty. FINDINGS: A fron krystian portable view of the chestis compared to the prior study of 11/07/2016. A large ga s-filled structure isnoted beneath the left diaphragm, unchanged, likely representin g the stomach.The cardiac silhouette is normal in size. There is again noted to be shift ofmediastinal structures to the right. There are some streaky and patchy changesat the right lung base not seen on the prior study and the possibility ofin filtrative change cannot be excluded. A few nonspecific left basilar streaksare note d as well. Prominence of the right hilum is unchanged and may merely carlos enrique a result o f the shift of mediastinal structures.IMPRESSION: New patchy opacit y at the right lung base may be infiltrative oratelectatic in nature. Few left basila r streaks are noted as well. Otherwisefindings similar.Xr Chest PortR esult Date: 11/07/2018XR CHEST PORT CLINICAL INDICATION PROVIDED:. "sob." COMPARISON: . 09/26/2015.FINDINGS:. The pericardial/cardiac silhouette is enlarg ed in the transversedimension. There is no pulmonary vascular congestion or interst itial edema.Linear density in the left lung base and faint densities in the right mi d tolower lung likely represent atelectasis. There is no lobar consolidation oreffusi on. There is no pneumothorax.IMPRESSION:. Bilateral lower lung atelectasis. No donna dence of consolidation oreffusion.Xr Abd Port 1 VResult Date: 11/21/2018Abdomen 2 views clinical indication ileus Study is compared to previousexamination of November 20, 2018 . There has been an interval decrease in boweldistention. Increased stool is note d in the rectal region. Skin clips are againnoted.IMPRESSION: 1. Interval decre ase in bowel distention. 2. Increased stool inrectal regionXr Abd Port 1 VResult Da te: 11/20/2018KUB one view(s) History: Ileus. Comparison: Yesterday. There is diffuse ileusof the small and large bowel which has increased involving the small bowel. Air and fecal material is noted in the rectosigmoid colon. The cecum appears to bein the right hemiabdomen but is otherwise unchanged. There is no evidence ofobstru ction, radiopaque gallstones, or kidney stones. The previously noted tubeoverlyi ng the abdomen is no longer seen.IMPRESSION: Increase of small bowel ileus.Duplex Upp er Ext Venous LeftResult Date: 12/26/2018DUPLEX UPPER EXT VENOUS LEFT Cl inical Data: Arm swelling, DVT suspectedFindings: The visualized segmen ts of the left upper extremity venous circulationfrom the level of the subclav deondre vein to the brachial vein is compressible andshows normal phasic flow without an i ntraluminal thrombus. In addition, theinternal jugular vein and the basilic vein is also patent. Extremely limitedexam because the patient was unable to geo ate and this was done in a portablefashion.IMPRESSION: No evidence of deep vein thrombosis within the visualized left upperextremity venous circulation. Limited study.Impression: Aspiration pneumonia. Acute hypoxic respiratory fa ilure. Dysphagia Pleural effusion. . COPDPlan: IV zosyn. Follow cultures.S igned By: Natasha Dudley MD January 10, 2019 3:38 PM Name Value Range Interpretation Code Description Data Harriett rce(s) Supporting Document(s ) ID Date Data Source [id number] 01/10/2019 03:19:15 PM EDT [facility] The history is provided by the EMS pj nava. 7:20 AM: Evelio Carlin is a 68 y.o. male with h/o COPD, pneumonia,pulmonary emboli, hypoparathyroidism, and mental retardation who presents to the via am bulance with respiratory distress and hypoxia. Per EMS personnel, thepatient i s from [place] and was found with an oxygen sat of 80% on 4L. Afterbeing put on a nonrebreathing mask, the patient's oxygenation went up to 95. Atbaseline, t he patient is on 4L of oxygen. The patient cannot provide anycoherent history or re view of systems at this time. No other complaints at thistime.Dr. 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) Pneumonia Psychiatric disorder Pulmona ry emboli (HCC) Schizophrenia (HCC)No past surgical history on file.No family histo ry on file.Social HistorySocioeconomic History Marital status: SINGLE Spouse name: Not on file Number of children: Not on file Years of education: Not on file H ighest education level: Not on fileOccupational History Not on fileSoc ial Needs Financial resource strain: Not on file Food insecurity: Worry: Not on fi le Inability: Not on file Transportation needs: Medical: Not on file Non-medica l: Not on fileTobacco Use Smoking status: Never Smoker Smokeless tobacco: Never U sedSubstance and Sexual Activity Alcohol use: No Drug use: No Sexual activity: Not on fileLifestyle Physical activity: Days per week: Not on file Minutes per session: Not on file Stress: Not on fileRelationships Social connections: Talks on phone: Not on file Gets together: Not on file Attends quaker service: Not on file Active member of club or organization: Not on file Attends meeti ngs of clubs or organizations: Not on file Relationship status: Not on file Intima te partner violence: Fear of current or ex partner: Not on file Emotionally abused : Not on file Physically abused: Not on file Forced sexual activity: Not on fileOthe r Topics Concern Not on fileSocial History Narrative Not on fileALLERGIES: Patient has no known allergies.Review of SystemsUnable to perform ROS: Patient no nverbalVitals: 01/10/19 1130 01/10/19 1133 01/10/19 1202 01/10/19 1243BP: 99/61 9 7/62Pulse: 87 82Resp: 22 22Temp: 99.7 F (37.6 C) 97.8 F (36.6 C)SpO2: 94% 9 4% 97% 93%Weight:Height:7:36 AM Pulse Oximetry reading is 93 % on nasal canula , which indicates normaloxygenation per Wes Romero MD.Physical ExamCons titutional: He appears well-developed and well-nourished. He appearslethargic. He appears distressed (mild respiratory).HENT:Head: Normocephalic an d atraumatic.Mouth/Throat: Oropharynx is clear and moist.Eyes: Conjunctivae are n ormal. No scleral icterus.No conjunctival pallorPost surgical pupils bilaterallyNe ck: Neck supple.Cardiovascular: Regular rhythm and normal heart sounds. Tachycar sammie present.Pulses: Dorsalis pedis pulses are 2+ on the right side, and 2+ on the left side. Posterior tibial pulses are 2+ on the right side, and 2+ on the left si de.Pulmonary/Chest: Tachypnea noted. He is in respiratory distress (mild). He hasdecre ased breath sounds. He has no wheezes. He has no rales.Abdominal: Soft. Bowel sounds a re normal. There is no tenderness. There is norebound and no guarding.PEG tube in pl joan with no surrounding erythemaMusculoskeletal:No tenderness or swelling to lower extremities.Bilateral lower extremities contracted.Neurologica l: He appears lethargic.Skin: Skin is warm and dry. No rash noted. No pallor.Nursin g note and vitals reviewed.MDMNumber of Diagnoses or Management OptionsAspiratio n pneumonia of right lung, unspecified aspiration pneumonia type,unspecified pa rt of lung (HCC):Hypoxia:Lethargic:Respiratory dist ress:Sepsis, due to unspecified organism:Amount and/or Complexity of Pan a ReviewedClinical lab tests: ordered and reviewedTests in the radiology section o f CPT : ordered and reviewedDecide to obtain previous medical records or to obtain hi story from someoneother than the patient: yesObtain history from someone other myrtle n the patient: yesReview and summarize past medical records: yesDiscuss the patient with other providers: yesIndependent visualization of images, tracings, or sp ecimens: yesCritical CareTotal time providing critical care: 30-74 minutesPatient Prog ressPatient progress: Nick Valerio Angela J, MD, reviewed the pat ient's past history, allergies andhome medications as documented in the nursing chart.Labs:Recent Results (from the past 12 hour(s))EKG, 12 LEAD, INITIAL Collection Time: 01/10/19 7:34 AMResult Value Ref Range Ventricular Rate 110 BPM Atrial Ra te 109 BPM P-R Interval 148 ms QRS Duration 88 ms Q-T Interval 304 ms QTC Calculatio n (Bezet) 411 ms Calculated P [place] 49 degrees Calculated R [place] 62 degrees Calculated T [place] 1 degrees Diagnosis Sinus tachycardiaLACTIC ACID Collection Time: 01/10/19 7:40 AMResult Value Ref Range Lactic acid 1.9 0.4 - 2.0 MMOL/LMETABOLI C PANEL, COMPREHENSIVE Collection Time: 01/10/19 7:40 AMResult Value Ref Range Sodium 126 (L) 136 - 145 mmol/L Potassium 4.5 3.5 - 5.1 mmol/L Chloride 87 (L) 98 - 10 7 mmol/L CO2 38 (H) 21 - 32 mmol/L Anion gap 6 (L) 10 - 20 mmol/L Glucose 114 (H) 74 - 106 mg/dL BUN 7 7 - 18 mg/dL Creatinine 0.48 (L) 0.70 - 1.30 mg/dL GFR est AA >6 0 >60 ml/min/1.73m2 GFR est non-AA >60 >60 ml/min/1.73m2 Calcium 9.4 8.5 - 10.1 mg/ dL Bilirubin, total 0.2 0.2 - 1.0 mg/dL ALT (SGPT) 12 (L) 13 - 61 U/L AST (SGOT) 13 (L) 15 - 37 U/L Alk. phosphatase 61 45 - 117 U/L Protein, total 7.4 6.4 - 8.2 g/dL Al bumin 2.3 (L) 3.5 - 4.7 g/dL Globulin 5.1 (H) 1.7 - 4.7 g/dL A-G Ratio 0.5 (L) 0.7 - 2 .8CBC WITH AUTOMATED DIFF Collection Time: 01/10/19 7:40 AMResult Value Ref Range WBC 10.4 4.8 - 10.6 K/uL RBC 3.58 (L) 4.70 - 6.00 M/uL HGB 12.0 (L) 14.0 - 18.0 g/dL HCT 36.2 (L) 42.0 - 52.0 % MCV 101.1 (H) 81.0 - 94.0 FL MCH 33.5 27.0 - 35.0 PG MCHC 3 3.1 30.7 - 37.3 g/dL RDW 16.4 (H) 11.5 - 14.0 % PLATELET 233 130 - 400 K/uL MPV 8.9 (L ) 9.2 - 11.8 FL NEUTROPHILS 85 (H) 48.0 - 72.0 % LYMPHOCYTES 8 (L) 18.0 - 40.0 % M ONOCYTES 5 2.0 - 12.0 % EOSINOPHILS 2 0.0 - 7.0 % BASOPHILS 0 0.0 - 3.0 % ABS. NEUTR OPHILS 8.9 (H) 1.5 - 6.6 K/UL ABS. LYMPHOCYTES 0.8 (L) 1.5 - 3.5 K/UL ABS. MONOCYTES 0.6 0.0 - 1.0 K/UL ABS. EOSINOPHILS 0.2 0.0 - 0.7 K/UL ABS. BASOPHILS 0.0 0. 0 - 0.1 K/UL DF AUTOMATED IMMATURE GRANULOCYTES 0 0.0 - 2.0 %TROPONIN I Col lection Time: 01/10/19 7:40 AMResult Value Ref Range Troponin-I, Qt. <0.02 0.00 - 0.05 NG/MLCK Collection Time: 01/10/19 7:40 AMResult Value Ref Range CK 29 (L) 39 - 308 U/LBNP Collection Time: 01/10/19 7:40 AMResult Value Ref Range BNP 28 0 - 100 pg/mLPTT Collection Time: 01/10/19 7:40 AMResult Value Ref Range aPTT 25.3 21.0 - 28.0 SECPROTHROMBIN TIME + INR Collection Time: 01/10/19 7:40 AMResult Value Ref Range Prothrombin time 10.3 9.4 - 11.1 sec INR 1.0 0.8 - 1.2BLOOD GAS, ARTERIAL Col lection Time: 01/10/19 7:47 AMResult Value Ref Range pH 7.46 (H) 7.35 - 7.45 PCO2 5 3 (H) 32 - 48 mmHg PO2 66 (L) 83 - 108 mmHg CO2, TOTAL 39 (H) 19 - 24 mmol/L BICARBO YARELI 38 (H) 21 - 28 mmol/L O2 SAT 95 94 - 98 % BASE EXCESS 11.8 (H) 0 - 3 mmol/L SITE RIGHT BRACHIAL DEVICE NASAL O2 O2 FLOW 4 L/min Performed by [id number]: NSR at 110 BPM, borderline T-wave inversions inferiorly.Interpreted by Raysa Romero, MDRadiology:CXR Results (Last 48 hours) 01/10/19 0819 XR CHEST PORT Bessy l result Impression: IMPRESSION: Limited study. Suspect right lung base process whichmay be due tosmall effusion with atelectasis/infiltrate. Narrative: XR C HEST PORTClinical data: SepsisPriors: 12/29/2018.Findings: Examination is compr omised due to limited inspiration and patientrotation. Heart size is unchange d. Haziness seen at the right lung base can bedue to small effusion with atelectasis /infiltrate. No confluent left lungprocess is seen. No evidence of CHF.Radiology r eviewed by Wes Romero MD.<EMERGENCY DEPARTMENT CASE SUMMARY>Impression/Diffe rential Diagnosis: COPD exacerbation, pneumonia, sepsis, [id number], and pulm onary edema.ED Course:68 y.o. male presented to the ED with shortness of breath. Orde r labs, arterialblood gas, troponin level, lactic acid level, blood culture, urine culture,urinalysis, EKG and chest XR. Initiate severe sepsis and septic shock bundle.Give Solu-Medrol and Duo-Neb.7:45 AM Give Tylenol.7:46 AM Give Vancocin and Z osyn.Labs and radiology results reviewed.8:36 AM Give IV fluid sepsis bolus.8:37 AM Th e arterial blood gas was reviewed and is ok on NRB9:13 AM Case presentation and find ings discussed with Dr. Hills (PCP) whoagrees to admit the patient. A sepsis reassessment and physical exam wasperformed. Discussed results, diagnosis and treatme nt plan. Patient's questionswere answered. Patient agrees with plan to admit.10:41 AM The patient was reassessed and is more alert.Final Impression/Diagnosis:Encount er Diagnoses ICD-10-CM ICD-9-CM1. Respiratory distress R06.03 786.092. Sep sis, due to unspecified organism A41.9 038.9 995.913. Hypoxia R09.02 799.024. Letharg ic R53.83 780.795. Aspiration pneumonia of right lung, unspecified aspiration pneum onia type,unspecified part of lung (HCC) J69.0 507.0Patient condition at time of disposition: serious and guardedI have reviewed the following home medications: Prior to Admission medicationsMedication Sig Start Date End Date Taking? Authorizing Providerclorazepate (TRANXENE) 3.75 mg tablet 1 Tab by Per G Tube route nightly. MaxDa pierre Amount: 3.75 mg. 12/30/18 Mili Hills DOmultivitamin (ONE A DAY) tabl et 1 Tab by Per G Tube route daily. 12/30/18Mili Hills DOcinacalcet (SE NSIPAR) 30 mg tablet Take 2 Tabs by mouth daily. 12/30/18 Mili Hills DOlamRosy RIgine (LAMICTAL) 25 mg tablet 2 Tabs by Per G Tube route two (2) times aday. 12/30/18 Mili Hills DOalbuterol-ipratropium (DUO-NEB) 2.5 mg-0.5 mg/3 ml nebu 3 mL b y Nebulizationroute every six (6) hours. Every 6 hours while awake 12/30/18 Mili Escudero DOalbuterol-ipratropium (DUO-NEB) 2.5 mg-0.5 mg/3 ml nebu 3 mL by Nebuliza tionroute every four (4) hours as needed for Cough (wheezing, shortness of breath). Mili Hills DObudesonide (PULMICORT) 0.5 mg/2 mL nbsp 2 mL by Neb ulization route two (2) timesa day. 12/30/18 Mili iHlls DObacitracin 500 unit/g escobar ointment Apply 1 Packet to affected area two (2) timesa day. Indications: minor s kin infection due to bacteria, facial scabs 12/30/18Mili Hills DOcholestyramine -aspartame (QUESTRAN LIGHT) 4 gram packet Take 1 Packet by mouththree (3) times da pierre (with meals). 12/30/18 Mili Hills DOpantoprazole (PROTONIX) 40 mg granules for oral suspension 40 mg by Per G Tuberoute Daily (before breakfast). 11/28/18 Mili Escudero DOvalproate (DEPAKENE) 250 mg/5 mL syrup Take 750 mg by mouth two (2) ti mes a day.Provider, Wes Castillo MD I, Destiny Lora, am serving as a scribe to document services personallyperformed by Wes Romero MD based on my observation and the provider'sstatements to me.I, Wes Romero MD, attest that the person(s) noted above, acting as myscribe(s) noted above , has observed my performance of the services and hasdocumented them in accordance wit h my direction. I have personally reviewed theabove information and have ordered an d reviewed the diagnostic studies, unlessotherwise noted. Name Value Range Interpretation Code Description Data Harriett rce(s) Supporting Document(s ) ID Date Data Source [id number] 01/10/2019 02:07:22 PM EDT [facility] CT CHEST WO CONTClinical data: evaluatio n of pneumonia rt lung.Priors: 12/18/2018Technique: CT scan of the chest was performed from the thoracic inlet to belowthe diaphragm without administratio n of intravenous contrast. The acquisitiondata was reviewed in the axia l, sagittal and coronal plane. Utilizingmanufacturer algorithm the exam ination was performed to optimize imaging qualityby utilizing the lowest possible radiation dose. Findings: There is no evidence of pathological lymphadenopathy within themediastinum, bilateral hilar and bilateral axillary location. There is a 1.8 cmnodule along the right wall of the trachea at the level of the thoracic inl et(best seen on image 13 of series 2) not seen on the prior study. This may bedue to a mucous plug. No additional endotracheal or endobronchial lesion isn oted.Normal heart size. Coronary artery calcifications noted. Atheroscleroticth oracic aorta without aneurysmal dilatation.Evaluation lung windows demon strates patchy right lower lobe lung infiltrate. There is associated small ri ght pleural effusion similar to prior. There isalso small left pleural effusion with underlying passive atelectasis slightlydecreased from the prior study. No new lung pathology is observed.Included upper abdominal organs: No significant p athology is observed within thevisualized upper abdominal organs.IMPRESSION: Small bilateral pleural effusion. Right effusion is similar toprior study. Left effusion slightly decreased in size. Patchy right lungopacities which may be due to pneumo freddy similar to previous examinations. 1.8cm nodule along the right lateral wall of t he trachea at the level of thethoracic inlet not observed on the prior study and can be due to a mucous plug. Signing date/time: 01/10/2019 2:07 PMSigned by: DAVID BLACKWELL Name Value Range Interpretation Code Description Data Harriett rce(s) Supporting Document(s ) ID Date Data Source [id number] 01/10/2019 12:28:01 PM EDT [facility] [id number] [facility] [address] [place] [address] [phone]/ Evelio Carlin (Male) [id number] I 3 ED Dispo:ADMIT Chief Complaint: Respiratory Distress Diagnosis: Respiratory distress [] Sepsis, due to unspecified organism (HCC) [] Hypoxia [] Lethargic [] Aspiration pneumonia of right jorge g, unspecified aspiration pneumonia type, unspecified part of lung (HCC) [] Current Providers: Attending: Devang Romero; Eloisa Hills Consulting Provider: Eloisa Hills; Sabrina Dudley; Nicole Monae Primary Nurse: Rain Lorenzo [facility] [id number] [facility] t Group [id number] - [facility] [address] Ed Medva MrnMRN: [id number] Print Group [id number] - [facility] [address] Ed Medva Age SexDOB 1950 AGE 68 SEX Male Primary Care Provider: Mili Hills DO Allergies: (No Known Allergies)Date Reviewed: 01/10/2019Reviewed by: Mili Hills DO - Review CompleteED Provider Notes: No notes of this type exist for this encounter.ED Orders [id number] BLOOD GAS, ARTERIAL [#[id number]] Priority: STAT Class: ER Collect Standing Order Information Josie g Occurrences:0/ Interval:ONE TIME Last released:01/10/2019 Released orders : Sat Jan 10, 2019 7:20 AM by: MELINDA VARELA [id number] BLOOD GAS, ARTERIAL [# [id number]] Priority: STAT Class: ER Collect Released on: 01/10/2019 7:20 AM [id number] LACTIC ACI D [#[id number]] Priority: STAT Class: ER Collect Standing Order Information Remaining Occurrences:0/2 Interval:EVERY 4 HRS Last released:01/10/2019 Released orders : [facility] Jan 10, 2019 8:05 AM by: WES ROMERO [facility] Jan 10, 2019 7:29 AM by: WES DAWSON [id number] URINALYSIS W/ RFLX MICROSCOPIC [#[id number]] Priority: STAT Class: E R Collect Standing Order Information Remaining Occurrences:0/1 Interval:ONE TIME Last r eleased:01/10/2019 Released orders: [facility] Jan 10, 2019 7:29 AM by: WES ROMERO [id number] M ETABOLIC PANEL, COMPREHENSIVE [#[id number]] Priority: STAT Class: ER Collect Standing Order Info rmation Remaining Occurrences:0/1 Interval:ONE TIME Last released:01/10/2019 Released orders: [facility] Jan 10, 2019 7:29 AM by: WES ROMERO [id number] CBC WITH AUTOMATED DIFF [#[id number]] Priority: STAT Class: ER Collect Standing Order Information Remaining Occurre nces:0/1 Interval:ONE TIME Last released:01/10/2019 Released orders: [facility] Jan 10 7:29 AM by: WES ROMERO [id number] TROPONIN I [#[id number]] Priority: STAT Class: ER Collect Standing Order Information Remaining Occurrences:0/1 Interval:ONE TI ME Last released:01/10/2019 Released orders: [facility] Jan 10, 2019 7:29 AM by: Devang ROMERO [id number] CK [#[id number]] Priority: STAT Class: ER Collect St anding Order Information Remaining Occurrences:0/1 Interval:ONE TIME Last released:0 01/10/2019 Released orders: [facility] Jan 10, 2019 7:29 AM by: WES ROMERO [id number] BNP [#[id number]] Priority: STAT Class: ER Collect Standing Order Information Remaining Occurrences:0/1 Interval:ONE TIME Last released:01/10/2019 Released orders : [facility] Jan 10, 2019 7:29 AM by: WES ROMERO [id number] PTT [# [id number]] Priority: STAT Class: ER Collect Specimen Source: Blood Standing Order Information Remaining Occurrences:0/1 Interval:ONE TIME Last released:01/10/2019 Released orders : Sat Jan 10, 2019 7:29 AM by: WES ROMERO [id number] PROTHROMBIN TIME + INR [# [id number]] Priority: STAT Class: ER Collect Standing Order Information Remaining Occurrences:0 /1 Interval:ONE TIME Last released:01/10/2019 Released orders: Sat Jan 10, 2019 7:29 AM by: WES ROMERO [id number] BLOOD GAS, ARTERIAL [#[id number]] Priority: S TAT Class: ER Collect Standing Order Information Remaining Occurrences:0/1 Interval:ONE TI ME Last released:01/10/2019 Released orders: [facility] Jan 10, 2019 7:29 AM by: Devang ROMERO [id number] LACTIC ACID [#[id number]] Priority: STAT Class: ER Collect Spec imen Source: Plasma Specimen Collected: 01/10/2019 7:40 AM Resulting Agency: [facility] Test ID: LAC Released on: 01/10/2019 7:29 AM [id number] URINALYSIS W/ RFLX MICROSCOPIC [#[id number]] Priority: STAT Class: ER Collect Specimen Source: Urine Specimen Collected: 01/10 8:48 AM Resulting Agency: [facility] Test ID: UA Released on: 01/10/2019 7:29 AM [id number] METABOLIC PANEL, COMPREHENSIVE [#[id number]] Priority: STAT Class: ER Collect Spec imen Source: Plasma Specimen Collected: 01/10/2019 7:40 AM Resulting Agency: [facility] Test ID: MPL Released on: 01/10/2019 7:29 AM [id number] CBC WITH AUTOMATED DIFF [#[id number]] Priority: STAT Class: ER Collect Specimen Source: Whole Blood Specimen Collected: 01/10/2019 7:40 AM Resulting Agency: [facility] Test ID: CBCA Released on : 01/10/2019 7:29 AM [id number] TROPONIN I [#[id number]] Priority: STAT Class: E R Collect Specimen Source: Plasma Specimen Collected: 01/10/2019 7:40 AM Resulting Agency: [facility] Test ID: TROIP Released on: 01/10/2019 7:29 AM [id number] CK [#[id number]] Priority: STAT Class: ER Collect Specimen Source: Plasma Specimen Collected: 12/15 7:40 AM Resulting Agency: [facility] Test ID: CPKP Released on: 01/10/2019 7:29 AM [id number] BNP [#[id number]] Priority: STAT Class: ER Collect Sp ecimen Source: Plasma Specimen Collected: 01/10/2019 7:40 AM Resulting Agency: [facility] Test ID: BNPPB Released on: 01/10/2019 7:29 AM [id number] PTT [#[id number]] Priority: STAT Class: ER Collect Specimen Source: Plasma Specimen Collected: 12/15 7:40 AM Resulting Agency: [facility] Test ID: APTT Released on: 01/10/2019 7:29 AM [id number] PROTHROMBIN TIME + INR [#[id number]] Priority: STAT Class: ER Collect Sp ecimen Source: Plasma Specimen Collected: 01/10/2019 7:40 AM Resulting Agency: [facility] Test ID: APTHR Released on: 01/10/2019 7:29 AM [id number] BLOOD GAS, ARTERIAL [#[id number]] Priority: STAT Class: ER Collect Released on: 01/10/2019 7:29 AM [id number] BLOOD GAS, ARTERIAL [#[id number]] Priority: Routine Class: ER Collect Resulting Agency: [facility] Test ID: ABGG1 Standing Order Information Remaining Occurrences:0 /1 Released orders: Sat Jan 10, 2019 7:47 AM by: Automatic Batch Process [id number] BLOOD GAS, ARTERIAL [#[id number]] Priority: Routine Class: ER Collect Specimen Source: Rosette rial Blood Specimen Collected: 01/10/2019 7:47 AM Resulting Agency: [facility] Test ID: ABGG1 Released on: 01/10/2019 7:47 AM [id number] LACTIC ACID [#[id number]] Priority: STAT Class: ER Collect Specimen Source: Plasma Specimen Collected: 01/10/2019 11:29 AM Alice medina Agency: [facility] Test ID: LAC Released on: 01/10/2019 8:05 AM [id number] VALPRO IC ACID [#[id number]] Priority: Routine Class: ER Collect Standing Order Info rmation Remaining Occurrences:N/A- not released Interval:TOMORROW AM Comment:MADAY Muhammad [id number] RENAL FUNCTION PANEL [#[id number]] Priority: Timed Class: ER Collect St anding Order Information Remaining Occurrences:N/A-not released Interval:ONE TIME [id number] RENAL FUNCT ION PANEL [#[id number]] Priority: Routine Class: ER Collect Standing Order Information Remaining Occurrences:N/A-not released Interval:DAILY [id number] OSMOLALITY, SERUM/PLASMA [#[id number]] Priority: Routine Class: ER Collect Standing Order Information Remainin g Occurrences:N/A-not released Interval:ONE TIME [id number] MAGNESIUM [# [id number]] Priority: Routine Class: ER Collect Standing Order Information Remaining Occurrences:N /A-not released Interval:DAILY [id number] CBC WITH AUTOMATED DIFF [#[id number]] Priority: Rou dipti Class: ER Collect Standing Order Information Remaining Occurrences:N/A-not released Interval :DAILY [id number] CULTURE, BLOOD [#[id number]] Priority: STAT Class: ER Collect Speci men Source: Blood Standing Order Information Remaining Occurrences:0/1 Interval:ONE TI ME Last released:01/10/2019 Released orders: Sat Jan 10, 2019 7:29 AM by: Devang ROMERO [id number] CULTURE, BLOOD [#[id number]] Priority: STAT Class: ER Collect Spec imen Source: Blood Standing Order Information Remaining Occurrences:0/1 Interval:ONE TI ME Last released:01/10/2019 Released orders: Sat Jan 10, 2019 7:29 AM by: Devang ROMERO [id number] CULTURE, URINE [#[id number]] Priority: STAT Class: ER Collect Spec imen Source: Clean catch Standing Order Information Remaining Occurrences:0/1 Interval:ONE TI ME Last released:01/10/2019 Released orders: Sat Jan 10, 2019 7:29 AM by: Devang ROMERO Reason for Culture -> Other [id number] CULTURE, BLOOD [#[id number]] Priori ty: STAT Class: ER Collect Specimen Source: Blood Specimen Collected: 01/10/2019 7:40 AM Machoin carol Agency: [facility] Test ID: HBCS Released on: 01/10/2019 7:29 AM [id number] CULTURE, BLOOD [#[id number]] Priority: STAT Class: ER Collect Specimen Source : Blood Specimen Collected: 01/10/2019 7:55 AM Resulting Agency: [facility] Test ID: HBCS Released on: 01/10/2019 7:29 AM [id number] CULTURE, URINE [#[id number]] P riority: STAT Class: ER Collect Specimen Source: Clean catch Specimen Collected: 01/10/2019 8:58 AM Resulting Agency: [facility] Test ID: CAPTAIN FISHING VESSEL Reason for Culture -> Other Release d on: 01/10/2019 7:29 AM [id number] CULTURE, BLOOD [#[id number]] Canceled Priority: ST AT Class: ER Collect Specimen Source: Blood Canceled by GEOVANI, LAB IN [facility] on Sat Jan 10, 2019 8:3 7 AM Reason: Other Comment: DUPLICATE REQUEST Standing Order Information Remaining Occurre nces:0/1 Interval:ONE TIME Last released:01/10/2019 Released orders: Sat Jan 10 7:51 AM by: WES ROMERO [id number] CULTURE, BLOOD [#[id number]] Canceled Priority: STAT Class: ER Collect Specimen Source: Blood Specimen Collected: 01/10/2019 8:00 AM Resultin g Agency: [facility] Test ID: HBCS Canceled by GEOVANI, LAB IN [facility] on Sat Jan 10, 2019 8:37 AM Reason: Other Comment: DUPLICATE REQUEST Released on: 01/10/2019 7:51 AM [id number] XR CHEST PORT [#[id number]] Priority: STAT Class: Hospital Performe d Standing Order Information Remaining Occurrences:0/1 Interval:ONE TIME Last released: 01/10/2019 Released orders: Sat Jan 10, 2019 7:29 AM by: WES ROMERO Reason for E xam -> Sepsis [id number] XR CHEST PORT [#[id number]] Priority: STAT Class: H ospital Performed Specimen Collected: 01/10/2019 8:53 AM Resulting Agency: [facility] Test ID : [id number] Reason for Exam -> Sepsis Released on: 01/10/2019 7:[id number] CHEST WO CONT [#[id number]] Priority: Routine Class: Hospital Performed Standing Order Information Remaining Occurrences:0/1 Interval:ONE TIME Last released:01/10/2019 Released orders : [facility] Jan 10, 2019 11:47 AM by: REINIER MILI [id number] CT CHEST WO CONT [#[id number]] Priority: STAT Class: Hospital Performed Resulting Agency: [facility] Test ID: [id number] Released on: 01/10/2019 11:47 AM [id number] EKG, 12 LEAD, INITIAL [#[id number]] Priority: S TAT Class: Hospital Performed Standing Order Information Remaining Occurrences:0/1 Inter seema:ONE TIME Last released:01/10/2019 Released orders: [facility] Jan 10, 2019 7:29 AM by: WES RAMOS Reason for Exam: -> Sepsis [id number] EKG, 12 LEAD, INITIAL [#[id number]] Priority: STAT Class: Hospital Performed Specimen Collected: 01/10/2019 7:34 AM Resulting Agency: [facility] Test ID: [id number] Reason for Exam: -> Sepsis Released on: 01/10/2019 7:29 AM [id number] VITAL SIGNS [#[id number]] Priority: Routine Class: Hospital Performed Standing Or bassem Information Remaining Occurrences:0/1 Interval:EVERY HOUR Last released:01/10/2019 Released orders: [facility] Jan 10, 2019 7:29 AM by: WES ROMERO [id number] STRICT I & O [#[id number]] Priority: Routine Class: Hospital Performed Standing Order Information Remaining Occurrences:0/1 Interval:CONTINUOUS Last released:01/10/2019 Released o rders: [facility] Jan 10, 2019 7:29 AM by: WES ROMERO [id number] NEUROLOGIC STATUS ASSESSMENT [#[id number]] Priority: Routine Class: Hospital Performed Standing Order Information Remainin g Occurrences:0/1 Interval:EVERY HOUR Last released:01/10/2019 Released orders : [facility] Jan 10, 2019 7:29 AM by: WES ROMERO [id number] NOTIFY PROVIDER: SPECIFY [# [id number]] Priority: STAT Class: Hospital Performed Standing Order Information Remaining Occurre nces:0/1 Interval:CONTINUOUS Last released:01/10/2019 Released orders: [facility] Jan 10, 2019 7:29 AM by: WES ROMERO Describe Order -> Notify provider within one hour to start vasopr essors if patient is unable to maintain a MAP of greater than or equa l to 65 mmHg despite fluid resuscitation [id number] HEMODYNAMIC MONITORING [#[id number]] Priority: STAT Class: Hospital Performed Standing Order Information Remaining Occurrences:0 /1 Interval:CONTINUOUS Last released:01/10/2019 Released orders: Sat Jan 10, 2019 7:29 AM by: WES ROMERO Comment:In the event of persistent arterial hypotension after tw o hours of fluid resuscitation efforts, or initial lactate greater than or equal to 4 mm ol/L (36 mg/dl) measure and record CVP and ScvO2 [id number] MEASURE RECTAL TEMPERATURE [#[id number]] Priority: STAT Class: Hospital Performed Standing Order Information Remaining Occurrences:0 /1 Interval:ONE TIME Last released:01/10/2019 Released orders: Sat Jan 10, 2019 7:29 AM by: WES ROMERO [id number] VITAL SIGNS [#[id number]] Priority: S TAT Class: Hospital Performed Released on: 01/10/2019 7:29 AM [id number] STRICT I & O [#[id number]] Priority: STAT Class: Hospital Performed Released on: 01/10/2019 7:29 AM [id number] 5 NEUROLOGIC STATUS ASSESSMENT [#[id number]] Priority: STAT Class: Hospital Performed Relea sed on: 01/10/2019 7:29 AM [id number] NOTIFY PROVIDER: SPECIFY [#[id number]] Priority: STAT Cla ss: Hospital Performed Describe Order -> Notify provider within one hour to start vasopressors if patient is unable to maintain a MAP of greater than or equal to 65 mmHg despi te fluid resuscitation Released on: 01/10/2019 7:29 AM [id number] HEMODYNAMIC MONITORING [# [id number]] Priority: STAT Class: Hospital Performed Comment:In the event of persistent arterial hypoten elio after two hours of fluid resuscitation efforts, or initial lactate greater than or equal to 4 mmol/L (36 mg/dl) measure and record CVP and ScvO2 Released on: 01/10/2019 7:29 AM VZE764 9 MEASURE RECTAL TEMPERATURE [#[id number]] Priority: STAT Class: Hospital Performed Relea sed on: 01/10/2019 7:29 AM [id number] POC GLUCOSE [#[id number]] Priority: STAT Cla ss: Hospital Performed Standing Order Information Remaining Occurrences:0/1 Interval:CONTIN UOUS Last released:01/10/2019 Released orders: [facility] Jan 10, 2019 7:30 AM by: Devang ROMERO [id number] POC GLUCOSE [#[id number]] Priority: STAT Class: Hospital Perform ed Released on: 01/10/2019 7:30 AM [id number] NOTIFY PROVIDER: SPECIFY [#[id number]] Yuan ority: STAT Class: Hospital Performed Standing Order Information Remaining Occurrences:0/1 In terval:CONTINUOUS Last released:01/10/2019 Released orders: [facility] Jan 10, 2019 7:51 AM by: WES ROMERO Describe Order -> Notify provider within one hour to start vasopressors if patient is unable to maintain a MAP of greater than or equal to 65 mmHg despite fluid resuscitation [id number] HEMODYNAMIC MONITORING [#[id number]] Priority: STAT Class: Hospital Performed Standing Order Information Remaining Occurrences:0/1 Inter seema:CONTINUOUS Last released:01/10/2019 Released orders: [facility] Jan 10, 2019 7:51 AM by: WES PARDO Comment:In the event of persistent arterial hypotension after two hours of fluid resuscitation efforts, or initial lactate greater than or equal to 4 mmol/L (36 mg/dl) measu re and record CVP and ScvO2 [id number] NOTIFY PROVIDER: SPECIFY [#[id number]] Priority: STAT Cla ss: Hospital Performed Describe Order -> Notify provider within one hour to start vasopressors if patient is unable to maintain a MAP of greater than or equal to 65 mmHg despi te fluid resuscitation Released on: 01/10/2019 7:51 AM [id number] HEMODYNAMIC MONITORING [# [id number]] Priority: STAT Class: Hospital Performed Comment:In the event of persistent arterial hypoten elio after two hours of fluid resuscitation efforts, or initial lactate greater than or equal to 4 mmol/L (36 mg/dl) measure and record CVP and ScvO2 Released on: 01/10/2019 7:51 AM [id number] 5 CARDIAC MONITORING [#[id number]] Priority: STAT Class: Hospital Performed Stand ing Order Information Remaining Occurrences:0/1 Interval:Expires 48 hours Last re leased:01/10/2019 Released orders: [facility] Jan 10, 2019 10:45 AM by: MILI HILLS Type: -> Bedside [id number] CARDIAC MONITORING [#[id number]] Priority: STAT Class: Hospital Perform ed Type: -> Bedside Released on: 01/10/2019 10:45 AM [id number] EMMA CASTILLO [# [id number]] Priority: STAT Class: Hospital Performed Standing Order Information Remaining Occurre nces:N/A-not released Interval:CONTINUOUS [id number] VITAL SIGNS PER UNIT ROUTINE [#[id number]] Pr iority: STAT Class: Hospital Performed Standing Order Information Remaining Occurrences:N/A-not releas ed Interval:CONTINUOUS Comment:More frequently if Indicated. [id number] NOTIFY PROVIDER: VITAL SIGNS SCOTT HIDALGO [#[id number]] Priority: STAT Class: Hospital Performed Standing Order Information Remainin g Occurrences:N/A-not released Interval:CONTINUOUS Temp -> Greater than 101 F HR -> Greater th an 120 Beats Per Minute or Less than 60 Beats Per Minute RR -> Greater than 30 per minute or Less than 8 per minute SBP -> Greater than 180 mm Hg or Less than 90 mm Hg O2 Sat -> Less than 90% UO -> L ess than 120 ml in 4 hours [id number] APPLY/MAINTAIN SEQUENTIAL COMPRESSIO* [#[id number]] Priority: ST AT Class: Hospital Performed Standing Order Information Remaining Occurrences:N/A-not released Interval:CONTINUOUS IVT11 SALINE LOCK IV [#[id number]] Priority: STAT Class: H ospital Performed Standing Order Information Remaining Occurrences:0/1 Interval:ONE TI ME Last released:01/10/2019 Released orders: Sat Jan 10, 2019 7:29 AM by: Devang ROMERO IVT11 SALINE LOCK IV [#[id number]] Priority: STAT Class: Hospital Perform ed Released on: 01/10/2019 7:29 AM SODIUM CHLORIDE 0.9 % IJ SYRG [#[id number]] Priority : STAT Class: Normal IPRATROPIUM-ALBUTEROL 2.5 MG-0.5 MG/* [#[id number]] Priority: STAT Class: N ormal MODE OF DELIVERY -> Nebulizer METHYLPREDNISOLONE (PF) 125 MG/2 ML * [#[id number]] Prior ity: STAT Class: Normal IPRATROPIUM-ALBUTEROL 2.5 MG-0.5 MG/* [#[id number]] Priority: STAT Cla ss: Normal MODE OF DELIVERY -> Nebulizer ACETAMINOPHEN 325 MG TABLET [#[id number]] Priority: STAT Class: Normal PIPERACILLIN-TAZOBACTAM 3.375 GRAM I* [#[id number]] Priority: STAT Class: Normal Antibiotic Indications -> Pneumonia (HAP) Suspected Organism(s) -> suspect aspirat ion pneumina VANCOMYCIN IVPB < 1.5 GM [#[id number]] Priority: STAT Class: N ormal Antibiotic Indications -> Pneumonia (HAP) SODIUM CHLORIDE 0.9% BOLUS IV [#[id number]] Priority: STAT Class: Normal SODIUM CHLORIDE 0.9% BOLUS IV [#[id number]] Priorit y: STAT Class: Normal 0.9% sodium chloride (MBP/ADV) infus* [#[id number]] Priority: None BUDESONIDE 0.5 MG/2 ML NEB SUSPENSION [#[id number]] Priority: None Class: Normal MODE OF DELIVERY -> N ebulizer CHOLESTYRAMINE- ASPARTAME 4 GRAM PACK* [#[id number]] Priority: None Class: Normal CINACALCET 30 MG TAB [#[id number]] Priority: None Class: Normal LAMOTRIGINE 25 MG TAB [#[id number]] Priority: None Class: Normal MULTIVITAMIN TAB [#[id number]] Priority: None Class: Normal PANTOPRAZOLE 40 MG GRANULES FOR ORAL* [# [id number]] Priority: None Class: Normal PPI INDICATION -> Symptomatic GERD VALPROIC ACID ( SODIUM SALT) 250 M* [#[id number]] Priority: None Class: Normal ALPRAZOLAM 0.5 MG TAB [#[id number]] Priority: None Class: Normal SODIUM CHLORIDE 0.9 % IV [#[id number]] Priority: STAT Class: Normal ACETAMINOPHEN (TYLENOL) SOLUTION 32M* [#[id number]] Priority: None Class: Normal HEPARIN (PORCINE) 5,000 UNIT/ML IJ S* [#[id number]] Priority: None Class: N ormal IPRATROPIUM-ALBUTEROL 2.5 MG-0.5 MG/* [#[id number]] Priority: None Class: Normal MODE OF DELIVERY -> Nebulizer MD38 SEVERE SEPSIS AND SEPTIC SHOCK BUND* [#[id number]] Priority: STAT C lass: Hospital Performed Standing Order Information Remaining Occurrences:0/1 Interval:CONTIN UOUS Last released:01/10/2019 Released orders: [facility] Jan 10, 2019 7:29 AM by: Devang ROMERO SEVERE SEPSIS AND SEPTIC SHOCK BUNDL* [#[id number]] Priority: STAT Class: Hospital Perform ed Released on: 01/10/2019 7:29 AM SCOTTIE SEVERE SEPSIS AND SEPTIC SHOCK BUNDL* [#[id number]] Devin torresy: STAT Class: Hospital Performed Standing Order Information Remaining Occurrences:0/1 Int erval:CONTINUOUS Last released:01/10/2019 Released orders: [facility] Jan 10, 2019 7:51 AM by: WES ROMERO SEVERE SEPSIS AND SEPTIC SHOCK BUNDL* [#[id number]] Priority: STAT Class: H ospital Performed Released on: 01/10/2019 7:51 AM [id number] TYPE & SCREEN [#[id number]] Canceled Priority: STAT Class: ER Collect Canceled by GEVOANI, LAB IN [employer] on [facility] Jan 10, 2019 8:59 AM Reason: Other Comment: HEMOLYZED SPECIMEN AIDAL IN ER NOTIFIED @08:42AM. Standing Ord er Information Remaining Occurrences:0/1 Interval:ONE TIME Last released:01/10/2019 Released orders: [facility] Jan 10, 2019 7:29 AM by: WES ROMERO Comment:ENTER SURGERY DATE I F FOR PRE-OP TESTING. [id number] TYPE & SCREEN [#[id number]] Canceled Priority: STAT Class: ER Collect Specimen Collected: 01/10/2019 7:55 AM Resulting Agency: [facility] Test ID: TYSC Canceled by GEOVANI, LAB IN [employer] on [facility] Jan 10, 2019 8:59 AM Reason: O ther Comment: HEMOLYZED SPECIMEN AIDAL IN ER NOTIFIED @08:42AM. Comment:ENTER SURGERY DATE IF FOR PRE-OP TESTING. Released on: 01/10/2019 7:29 AM [id number] TYPE & SCREEN [#[id number]] Priority: STAT Class: ER Collect Standing Order Information Remaining Occurrences:0 /1 Interval:ONE TIME Last released:01/10/2019 Released orders: [facility] Jan 10, 2019 7:51 AM by: WES ROMERO Comment:ENTER SURGERY DATE IF FOR PRE-OP TESTING. RXA1026 TYPE & SCR EEN [#[id number]] Priority: STAT Class: ER Collect Specimen Source: Plasma Specim en Collected: 01/10/2019 11:29 AM Resulting Agency: [facility] Test ID: TYSC Co mment:ENTER SURGERY DATE IF FOR PRE-OP TESTING. Released on: 01/10/2019 7:51 AM EQ130 URINARY CA THETER STRAIGHT [#[id number]] Priority: STAT Class: Hospital Performed Standing Order Inf ormation Remaining Occurrences:0/1 Interval:ONE TIME Last released:01/10/2019 Release d orders: Sat Jan 10, 2019 7:29 AM by: WES ROMERO EQ130 URINARY CATHETER STRAIGHT [#[id number]] Priority: STAT Class: Hospital Performed Released on: 01/10/2019 7:29 AM [id number] INITIAL PHYSICIAN ORDER: INPATIENT [#[id number]] Priority: Routine Class: ADT Pend Transfer Sta nding Order Information Remaining Occurrences:0/1 Interval:ONE TIME Last released:0 01/10/2019 Released orders: Sat Jan 10, 2019 10:45 AM by: MILI HILLS Status: -> [facility] Inpatient Hospitalization Certified Necessary for the Following Reasons -> 3- . P- a- t- i- e- n- t r - e- c- e- i- v- i- n- g t- r- e- a- t- m- e- n- t t- h- a- t c- a- n o- n- l- y b- e p- r- o- v- i- d- e- d i- n a- n i- n- p- a- t- i- e- n- t s- e- t- t- i- n- g (- f- u- r- t- h- e- r c- l- a- r- i- f- i- c- a- t- i- o- n i- n H - &- P d- o- c- u- m- e- n- t- a- t- i- o- n- ) Admitting Diagnosis -> Acute respiratory failure with hypoxia (HCC) -> Pneumonia involving right lung Admitting Physician -> MARYANN HILLS Attending Physician -> MILI HILLS Estimated Length of Stay -> 5-7 Midnights Discharge Plan: -> Extended Care Facility (e.g. Adult Home, Detention, etc.) [id number] INITIAL PH YSICIAN ORDER: INPATIENT [#[id number]] Priority: Routine Class: ADT Pend Transfer Status: -> INPATI ENT Inpatient Hospitalization Certified Necessary for the Following Reasons -> 3- . P- a- t- i- e- n- t r - e- c- e- i- v- i- n- g t- r- e- a- t- m- e- n- t t- h- a- t c- a- n o- n- l- y b- e p- r- o- v- i- d- e- d i- n a- n i- n- p- a- t- i- e- n- t s- e- t- t- i- n- g (- f- u- r- t- h- e- r c- l- a- r- i- f- i- c- a- t- i- o- n i- n H - &- P d- o- c- u- m- e- n- t- a- t- i- o- n- ) Admitting Diagnosis -> Acute respiratory failure with hypoxia (HCC) -> Pneumonia involving right lung Admitting Physician -> MARYANN HILLS Attending Physician -> MILI HILLS Estimated Length of Stay -> 5-7 Midnights Discharge Plan: -> Extended Care Facility (e.g. Adult Home, Detention, etc.) Released on: 12/15 10:45 AM COD2 FULL CODE [#[id number]] Priority: STAT Class: H ospital Performed Standing Order Information Remaining Occurrences:N/A-not released Interval :CONTINUOUS WX4754 RT--OXIMETRY, SPOT CHECK [#[id number]] Priority: STAT Class: H ospital Performed Standing Order Information Remaining Occurrences:N/A-not released Interval : NEEDED SS3023 RT--OXYGEN CANNULA [#[id number]] Priority: STAT Class: H ospital Performed Standing Order Information Remaining Occurrences:N/A-not released Interval :CONTINUOUS Comment:Titrate rate up to 4 L / minute to maintain oxygen saturation at 95 % or greater. For Hypercapnia or COPD patients maintain oxygen saturations at 90%-94% LPM -> 4 Indications for O2? -> HYPOXIA CON5 IP CONSULT TO INFECTIOUS DISEASES [#[id number]] Priority: R outine Class: Hospital Performed Standing Order Information Remaining Occurrences:0/1 Inter seema:ONE TIME Last released:01/10/2019 Released orders: Sat Jan 10, 2019 11:38 AM by: MILI ESCUDERO Reason for Consult: -> Pneumonia Did you call or speak to the consulting provider? -> No Consult To -> Dr Dudley Schedule When? -> TODAY CON5 IP CONSULT TO INFECTIOUS DISEASES [#[id number]] Priority: STAT Class: Hospital Performed Comment:[facility] aware of consult Reason for Con sult: -> Pneumonia Did you call or speak to the consulting provider? -> No Consult To -> Dr Sa matos Schedule When? -> TODAY Released on: 01/10/2019 11:38 AM CON54 IP CONSULT TO PULMONOLOGY [#[id number]] Priority: STAT Class: Hospital Performed Standing Order Information Remainin g Occurrences:0/1 Interval:ONE TIME Last released:01/10/2019 Released orders : [facility] Jan 10, 2019 11:38 AM by: MILI HILLS Reason for Consult: -> acute respiratory failur e with hypoxia and pneumonia Did you call or speak to the consulting provider ? -> No Consult To -> Dr Monae Schedule When? -> TODAY CON54 IP CONSULT TO PULMONOLOGY [#[id number]] Priority: STAT Class: Hospital Performed Comment:aware Reason for Consult: - > acute respiratory failure with hypoxia and pneumonia Did you call or speak to the consulting provider? -> No Consult To -> Dr Monae Schedule When? -> TODAY Released on: 01/10/2019 11:38 GALINAEvelio grimm MR#: [id number] * Rm: 332-02Ht: 5' 2" Wt: 114 lb Code: Prior Iso:Diagnosis:Acute respiratory failure with hypoxia (HCC) [ J96.01]Allergies: No Known Allergies -------- Current as of: 01/10/19 1228 GI=Given IC=IV Complet ed NB=New Bag --albuterol-ipratropium (DUO-NEB) 2.5 MG-0.5 MG/3 ML #[id number] Admin Amount: 3 mL Ordered Dose: 3 mL Route: Nebulization Freq: NOW Start Date: 11/07/18 No administration times (back 96 hours, ahead 96 hours). ------methylPREDNISolone (PF) (Solu-MEDROL) injection 125 mg #[id number] Admin Amount: 2 mL = 125 mg of 125 mg/2 mL Ordered Dose: 125 mg Route: Int raVENous Freq: NOW Start Date: 11/07/18 No administration times (back 96 hours, ahe ad 96 hours). ------cefTRIAXone (ROCEPHIN) 1 g in 0.9% sodium chloride (MBP/ADV) 50 m L M*#[id number] Admin Amount: 1 g Ordered Dose: 1 g Route: IntraVENous Freq: NOW Start Date: 11/07/18 Rate: 100 mL/hr Duration: 30 Minutes No administration times (back 96 hours, ahead 96 hours). ------azithromycin (ZITHROMAX) 500 mg in NS 250 mL #[id number] Admin Amount: 250 mL = 500 mg of 500 mg/250 mL Ordered Dose: 500 mg Ro manzanita: IntraVENous Freq: NOW Start Date: 11/07/18 Rate: 250 mL/hr Dura tion: 60 Minutes No administration times (back 96 hours, ahead 96 hours). ------iopamidol (ISOVUE-370) 76 % injection 100 mL #[id number] Admin Amount: 100 mL Ordered Dose: 100 mL Route: IntraVENous Freq: RAD ONC E Start Date: 11/07/18 No administration times (back 96 hours, ahead 96 hours). ------sodium chloride 0.9 % bolus infusion 500 mL #[id number] Admin Amount: 500 mL Ordered Dose: 500 mL Route: IntraVENous Freq: ONCE Start Date: 11/08/18 Rate: 666.7 mL/hr Duration: 45 Minutes No administr ation times (back 96 hours, ahead 96 hours). ------ALPRAZolam (XANAX) tablet 0.25 mg #[id number] Admin Amount: 1 Tab (1 x 0.25 mg Tab) Ordered Dose: 0.25 mg Route: Ora l Freq: DAILY Start Date: 11/08/18 No administration times (back 96 hours, ahe ad 96 hours).Evelio Carlin MR#: [id number] * Rm: 332-02Ht: 5' 2" Wt: 1 14 lb Code: Prior Iso:Diagnosis:Acute respiratory failure with hypoxia (HCC) [J96.01]Aller gies: No Known Allergies -------- Current as of: 01/10/19 1228 GI=Given IC=IV Complet ed NB=New Bag --cefTRIAXone (ROCEPHIN) 1 g in 0.9% sodium chloride (MBP/ADV) 50 mL *#[id number] Admin Amount: 1 g Ordered Dose: 1 g Route: IntraVENous Freq: EVERY 24 HOURS Start Date: 11/08/18 Rate: 100 mL/hr Duration: 30 Minutes No administration times (back 96 hours, ahead 96 hours). ------azithromycin (ZITHROMAX) 500 mg in 0.9% sodium chloride 250 mL IV PB #[id number] Admin Amount: 500 mg Ordered Dose: 500 mg Route: IntraVENous Freq: EVERY 24 HOURS Start Date: 11/08/18 Rate: 250 mL/hr Duration: 60 Minutes No administrati on times (back 96 hours, ahead 96 hours). ------LORazepam (ATIVAN) injection 0.5 mg #[id number] Admin Amount: 0.25 mL = 0.5 mg of 2 mg/mL Ordered Dose: 0.5 mg Ro manzanita: IntraVENous Freq: ONCE Start Date: 11/10/18 No administration times (back 96 hours, ahead 96 hours). ------LORazepam (ATIVAN) injection 2 mg #[id number] Admin Amount: 1 mL = 2 mg of 2 mg/mL Ordered Dose: 2 mg Route: Int raVENous Freq: ONCE Start Date: 11/11/18 No administration times (back 96 hours, ahe ad 96 hours). ------LORazepam (ATIVAN) injection 0.5 mg #[id number] Admin Amount: 0.25 mL = 0.5 mg of 2 mg/mL Ordered Dose: 0.5 mg Ro manzanita: IntraVENous Freq: ONCE Start Date: 11/11/18 No administration times (back 96 hours, ahead 96 hours). ------acetaminophen (OFIRMEV) infusion 1,000 mg #[id number] Admin Amount: 100 mL = 1,000 mg of 1,000 mg/100 mL Ordered Dose: 1,000 mg Ro manzanita: IntraVENous Freq: EVERY 6 HOURS Start Date: 11/17/18 Rate: 400 mL/hr Durat ion: 15 Minutes No administration times (back 96 hours, ahead 96 hours). ------HYDROmorphone (DILAUDID) syringe 0.5 mg #[id number] Admin Amount: 0.5 mL = 0.5 mg of 0.5 mg/0.5 mL Ordered Dose: 0.5 mg Ro manzanita: IntraVENous Freq: EVERY 6 HOURS NEEDED Start Date: 11/17/18 No administration times (back 96 hours, ahead 96 hours).Evelio Carlin MR#: [id number] * Rm: 332-02Ht: 5' 2" Wt: 114 lb Code: Prior Iso:Diagnosis:Acute respiratory failure with hypoxia ([facility]) [ J96.01]Allergies: No Known Allergies -------- Current as of: 01/10/19 1228 GI=Given IC=IV Complet ed NB=New Bag --acetaminophen (OFIRMEV) infusion 1,000 mg #[id number] Admin Amount: 100 mL = 1,000 mg of 1,000 mg/100 mL Ordered Dose: 1,000 mg Ro manzanita: IntraVENous Freq: EVERY 6 HOURS Start Date: 11/18/18 Rate: 400 mL/hr Durat ion: 15 Minutes No administration times (back 96 hours, ahead 96 hours). ------piperacillin-tazobactam (ZOSYN) 3.375 g in 0.9% sodium chloride (MBP*#[id number] Admin Amount: 3.375 g Ordered Dose: 3.375 g Route: IntraVENous Freq: EVERY 8 HOURS Start Date: 11/18/18 Rate: 25 mL/hr Duration: 240 Minutes No administra tion times (back 96 hours, ahead 96 hours). ------potassium chloride 10 mEq in 100 ml IVPB #[id number] Admin Amount: 100 mL = 10 mEq of 10 mEq/100 mL Ordered Dose: 10 mEq Ro manzanita: IntraVENous Freq: EVERY 1 HOUR Start Date: 11/19/18 Rate: 100 mL/hr Durat ion: 60 Minutes No administration times (back 96 hours, ahead 96 hours). ------diatrizoate tiffani-diatrizoat sod (RUTHYGASTROVIEW,GASTRO GRAFIN) 66-10 % *#[id number] Admin Amount: 30 mL Ordered Dose: 30 mL Route: Oral Freq: RAD ONCE Start Date: 11/19/18 No administration times (back 96 hours, ahead 96 hours). ------acetaminophen (OFIRMEV) infusion 1,000 mg #[id number] Admin Amount: 100 mL = 1,000 mg of 1,000 mg/100 mL Ordered Dose: 1,000 mg Ro manzanita: IntraVENous Freq: EVERY 6 HOURS Start Date: 11/21/18 Rate: 400 mL/hr Durat ion: 15 Minutes No administration times (back 96 hours, ahead 96 hours). ------acetaminophen (OFIRMEV) infusion 1,000 mg #[id number] Admin Amount: 100 mL = 1,000 mg of 1,000 mg/100 mL Ordered Dose: 1,000 mg Ro manzanita: IntraVENous Freq: EVERY 6 HOURS Start Date: 11/22/18 Rate: 400 mL/hr Dura tion: 15 Minutes No administration times (back 96 hours, ahead 96 hours). ------LORazepam (ATIVAN) tablet 0.5 mg #[id number] Admin Amount: 1 Tab (1 x 0.5 mg Tab) Ordered Dose: 0.5 mg Route: Per G Tube Freq: EVERY BEDTIME Start Date: 11/23/18 No administration times (back 96 hours, e ad 96 hours).Evelio Carlin MR#: [id number] * Rm: 332-02Ht: 5' 2" Wt: 1 14 lb Code: Prior Iso:Diagnosis:Acute respiratory failure with hypoxia ([facility]) [J96.01]Aller gies: No Known Allergies -------- Current as of: 01/10/19 1228 GI=Given IC=IV Complet ed NB=New Bag --vancomycin (VANCOCIN) 1,250 mg in 0.9% sodium chloride 250 mL IVPB #[id number] Admin Amount: 1,250 mg Ordered Dose: 1,250 mg Route: IntraVENous Freq: EVERY 12 H OURS Start Date: 11/24/18 Rate: 125 mL/hr Duration: 120 Minutes No administrati on times (back 96 hours, ahead 96 hours). ------potassium chloride (KLOR-CON) packet for solution 20 mEq #[id number] Admin Amount: 1 Packet (1 x 20 mEq Packet) Ordered Dose: 20 mEq Ro manzanita: Oral Freq: 2 TIMES DAILY WITH MEALS Start Date: 11/25/18 No administration times (back 96 hours, ahe ad 96 hours). ------piperacillin-tazobactam (ZOSYN) 3.375 g in 0.9% sodium chloride (MBP*#[id number] Admin Amount: 3.375 g Ordered Dose: 3.375 g Route: IntraVENous Freq: NOW Start Date: 12/12/18 Rate: 200 mL/hr Duration: 30 Minutes No administra tion times (back 96 hours, ahead 96 hours). ------albuterol-ipratropium (DUO-NEB) 2.5 MG-0.5 MG/3 ML #[id number] Admin Amount: 3 mL Ordered Dose: 3 mL Route: Nebulization Freq: NOW Start Date: 12/12/18 No administration times (back 96 hours, ahead 96 hours). ------methylPREDNISolone (PF) (Solu-MEDROL) injection 125 mg #[id number] Admin Amount: 2 mL = 125 mg of 125 mg/2 mL Ordered Dose: 125 mg Route: Int raVENous Freq: NOW Start Date: 12/12/18 No administration times (back 96 hours, ahe ad 96 hours). ------albuterol-ipratropium (DUO-NEB) 2.5 MG-0.5 MG/3 ML #[id number] Admin Amount: 3 mL Ordered Dose: 3 mL Route: Nebulization Freq: NOW Start Date: 12/12/18 No administration times (back 96 hours, ahead 96 hours). ------albuterol-ipratropium (DUO-NEB) 2.5 MG-0.5 MG/3 ML #[id number] Admin Amount: 3 mL Ordered Dose: 3 mL Route: Nebulization Freq: NOW Start Date: 12/12/18 No administration times (back 96 hours, ahead 96 hours).GabeIvelisse MR#: [id number] * Rm: 332-02Ht: 5' 2" Wt: 114 lb Code: Prior Iso:Diagnosis:Acute respiratory failure with hypoxia ([facility]) [J96.01]Allergies: No Known Allergies -------- Current as of: 01/10/19 1228 GI=Given IC=IV Complet ed NB=New Bag -- Followed by [facility] (Order count: 2)sodium chloride 0.9 % jeff aspen infusion 1,000 mL #[id number] Admin Amount: 1,000 mL Ordered Dose: 1,000 mL Route: IntraVENous Freq: ONCE Start Date: 12/12/18 No administration times ( back 96 hours, ahead 96 hours). - Followed by - - - - - - - - - - - - - - - - - - - - - - - - - - - - - - - -s odium chloride 0.9 % bolus infusion 593 mL #[id number] Admin Amount: 593 mL Ordere d Dose: 593 mL Route: IntraVENous Freq: ONCE Start Date: 12/12/18 No ad ministration times (back 96 hours, ahead 96 hours). ------iopamidol (ISOVUE-370) 76 % injection 125 mL #[id number] Admin Amount: 125 mL Ordered Dose: 125 mL Route: IntraVENous Freq: RAD ONC E Start Date: 12/17/18 No administration times (back 96 hours, ahead 96 hours). ------lidocaine (XYLOCAINE) 20 mg/mL (2 %) injection 100 mg #[id number] Admin Amount: 5 mL = 100 mg of 2,000 mg/100 mL Ordered Dose: 5 mL Ro manzanita: IntraDERMal Freq: ONCE Start Date: 12/19/18 No administration times (back 96 hours, ahead 96 hours). ------oxyCODONE-acetaminophen (PERCOCET) 5-325 mg per tablet 1 Tab #[id number] Admin Amount: 1 Tab Ordered Dose: 1 Tab Route: Oral Freq: EVERY 8 HOURS NEEDED Start Date: 12/19/18 No administration times (back 96 hours, ahead 96 hours). ------furosemide (LASIX) injection 20 mg #[id number] Admin Amount: 2 mL = 20 mg of 10 mg/mL Ordered Dose: 20 mg Ro manzanita: IntraVENous Freq: ONCE Start Date: 12/26/18 No administration times (back 96 hours, ahead 96 hours). ------furosemide (LASIX) injection 20 mg #[id number] Admin Amount: 2 mL = 20 mg of 10 mg/mL Ordered Dose: 20 mg Route: Int raVENous Freq: ONCE Start Date: 12/29/18 No administration times (back 96 hours, e ad 96 hours).Evelio Carlin MR#: [id number] * Rm: 332-02Ht: 5' 2" Wt: 1 14 lb Code: Prior Iso:Diagnosis:Acute respiratory failure with hypoxia ([facility]) [J96.01]Aller gies: No Known Allergies -------- Current as of: 01/10/19 1228 GI=Given IC=IV Complet ed NB=New Bag --sodium chloride (NS) flush 5-10 mL #[id number] Admin Amount: 5-10 mL Ordered Dose: 5-10 mL Route: IntraVENous Freq: NEEDED Start Date: 01/10/19 No administration times (back 96 hours, ahead 96 hours). ------albuterol-ipratropium (DUO-NEB) 2.5 MG-0.5 MG/3 ML #[id number] Admin Amount: 3 mL Ordered Dose: 3 mL Route: Nebulization Freq: NOW Start Date: 01/10/19 Administration times (back 96 hours, ahead 96 hours): 01/10/19: 0859GI -----methylPREDNISolone (PF) (Solu-MEDROL) injection 125 mg #[id number] Admin Amount: 2 mL = 125 mg of 125 mg/2 mL Ordered Dose: 125 mg Route: Int AmarisENous Freq: NOW Start Date: 01/10/19 Administration times (back 96 hours, e ad 96 hours): 01/10/19: 0855GI -----albuterol-ipratropium (DUO-NEB) 2.5 MG-0.5 MG/3 ML #[id number] Admin Amount: 3 mL Ordered Dose: 3 mL Route: Nebulization Freq: NOW Start Date: 01/10/19 Administration times (back 96 hours, ahead 96 hours): 01/10/19: 0856GI -----acetaminophen (TYLENOL) tablet 650 mg #[id number] Admin Amount: 2 Tab (2 x 325 mg Tab) Ordered Dose: 650 mg Route: Per G Tub e Freq: NOW Start Date: 01/10/19 Administration times (back 96 hours, e ad 96 hours): 01/10/19: 0856GI -----piperacillin-tazobactam (ZOSYN) injection 3.375 g #[id number] Admin Amount: 3.375 g Ordered Dose: 3.375 g Route: IntraVENous Freq: NOW Start Date: 01/10/19 Administration times (back 96 hours, ahead 96 hours): 01/10/19: 0856GI -----vancomycin (VANCOCIN) 1,000 mg in 0.9% sodium chloride 250 mL IVPB #[id number] Admin Amount: 1,000 mg Ordered Dose: 1,000 mg Route: IntraVENous Freq: ONCE Start Date: 01/10/19 Rate: 125 mL/hr Duration: 120 Minutes Administr ation times (back 96 hours, ahead 96 hours): 01/10/19: 0918NB Evelio Mccauley#: [id number] * Rm: 332-02Ht: 5' 2" Wt: 114 lb Code: Prior Iso:Diagnosis:Ac manzanita respiratory failure with hypoxia (HCC) [J96.01]Allergies: No Known Allergies -------- Current as of: 01/10/19 1228 GI=Given IC=IV Complet ed NB=New Bag -- Followed by [facility] (Order count: 2)sodium chloride 0.9 % jeff aspen infusion 1,000 mL #[id number] Admin Amount: 1,000 mL Ordered Dose: 1,000 mL Route: IntraVENous Freq: ONCE Start Date: 01/10/19 Administration times (main k 96 hours, ahead 96 hours): 01/10/19: 0745NB 0915IC - Followed by - - - - - - - - - - - - - - - - - - - - - - - - - - - - - - - -sodium chloride 0.9 % bolus infusion 551 mL #[id number] Admin A mount: 551 mL Ordered Dose: 551 mL Route: IntraVENous Freq: ONCE Start Date: 01/10/19 Administration times (back 96 hours, ahead 96 hours): 01/10/19: 0917NB 1006IC -----0.9% sodium chloride (MBP/ADV) infusion #[id number] Ordered Dose: Route: Freq: Start D ate: 01/10/19 Administration times (back 96 hours, ahead 96 hours): 01/10/19: 0859GI -----0.9% sodium chloride infusion #[id number] Ordered Dose: 50 mL/hr Route: IntraVENous Freq: CONTINUOUS Start Date: 01/10/19 Rate: 50 mL/hr Duration: Administration times (back 96 hours, ahead 96 hours): 01/10/19: 1133NB ED Current OP Medicationsclorazepate (TR ANXENE) 3.75 mg tabletSi Tab by Per G Tube route nightly. Max Daily Amount: 3.75 mg.Dispense Amount:30 TabSt art Date:12/30/2018End Date:Doc. Provider: Mili Hills DOmultivitamin (ONE A DAY) tabletSi T ab by Per G Tube route daily.Dispense Amount:30 TabStart Date:12/30/2018End Date:Doc. Provider: Mili Dawn DOcinacalcet (SENSIPAR) 30 mg tabletSig:Take 2 Tabs by mouth daily.Dispense Amount:60 TabStart Date:12/30/2018End Date:Doc. Provider: Mili Hills DOlamoTRIgine (LAMICTAL) 25 mg tabletSi Tabs by Per G Tube route two (2) times a day.Dispense Amount:60 TabStart Date:12/30/2018End Date:Doc. Provider: Mili Dawn DOalbuterol-ipratropium (DUO-NEB) 2.5 mg-0.5 mg/3 ml nebuSi mL by Nebulization route every six (6) hours. Every 6 hours while awakeDispense Amount:30 NebuleStart Date:12/30/2018End Date:Doc. Provider: Mili Hills DOalbuterol- ipratropium (DUO-NEB) 2.5 mg-0.5 mg/3 ml nebuSi mL by Nebulizat ion route every four (4) hours as needed for Cough (wheezing, shortness of breath).Dispense Amount:30 NebuleStart Date:12/30/2018End Date:Doc. Provider: Mili Hills DObudesonide (PULMICORT) 0.5 mg/2 mL nbs pSi mL by Nebulization route two (2) times a day.Dispense Amount:60 EachStart Date:12/30/2018End Date:Doc. Pr ovider: Mili Hills DObacitracin 500 unit/gram ointmentSig:Apply 1 Packet to affected area two (2) times a day. Indications: minor skin infection due to bacteria, facial scabsDispense Amount:20 PacketStart Date :12/30/2018End Date:Doc. Provider: Mili Hills DOcholestyramine-aspartame (QUESTRAN LIG HT) 4 gram packetSig:Take 1 Packet by mouth three (3) times daily (with meals).Dispense Amount:90 PacketSt art Date:12/30/2018End Date:Doc. Provider: Mili Hills DOpantoprazole (PROTONIX) 40 mg granules for oral suspensionSi mg by Per G Tube route Daily (before breakfast).Dispense Amount:30 EachStart Date:11/28/2018End Date:Doc. Provider: Mili Hills DOvalproate (DEPAKENE) 250 mg/5 mL syrupSig:Take 750 mg by mouth two (2) times a day.Dispense Amount:Start Date:End Date:Doc. Provider: Provider, Historical ED Prescriptions None on FileFollow-up Informa tionFollow-up With:Mili Hills DODetails:Comments:Contact Info:[address] [address] [phone] Name Value Range Interpretation Code Description Data Harriett rce(s) Supporting Document(s ) ID Date Data Source [id number] 01/10/2019 12:13:32 PM EDT [facility] TRANSFER - OUT REPORT:Verbal report give n to NANCY Jeronimo(name) on Evelio Carlin being transferredto T3(unit) for routine progression of careReport consisted of patient's Situation, Background, Assessm ent andRecommendations(SBAR).Information from the following report(s) SBAR, ED Summary , Intake/Output, MAR,Recent Results, Med Rec Status and Cardiac Rhythm Sinus Matthew wa s reviewed withthe receiving nurse.Lines:Peripheral IV 01/10/19 Left Wrist (Active)Site Assessment Clean, dry, & intact 01/10/2019 7:45 AMPhlebitis Asses sment 0 01/10/2019 7:45 AMInfiltration Assessment 0 01/10/2019 7:45 AMDressing Status Clean, dry, & intact 01/10/2019 7:45 AMOpportunity for questions and clarific ation was provided.Patient transported with: MonitorO2 @ 3 litersRegistered NurseTech Name Value Range Interpretation Code Description Data Harriett rce(s) Supporting Document(s ) ID Date Data Source [id number] 01/10/2019 12:01:15 PM EDT [facility] Called T3 to give report, informed accep clarissa PITTS will call back. Name Value Range Interpretation Code Description Data Harriett rce(s) Supporting Document(s ) ID Date Data Source [id number] 01/10/2019 03:21:47 PM EDT [facility] Name Value Range Interpretation Description Data Sup porting Code Source(s) Document(s ) Specimen [facility] - Good expiration 9 [facility] ABO and Rh [facility] - Good group [Type] [facility] Hospital Blood group [facility] - Good antibodies [facility] identified in Hospital Serum or Plasma ID Date Data Source [id number] 01/10/2019 12:06:09 PM EDT [facility] Name Value Range Interpretation Description Data Sup porting Code Source(s) Document(s ) Lactate 0.9 0.4-2.0 [facility] - Good [Moles/volu MMOL/L [facility]] in Hospital Serum or Plasma ID Date Data Source [id number] 01/10/2019 11:26:35 AM EDT [facility] SBAR report received from NANCY Phillips. Ass umed care of pt at this time. Repeatlactic drawn now by test deck supervisor. Name Value Range Interpretation Code Description Data Harriett rce(s) Supporting Document(s ) ID Date Data Source [id number] 01/10/2019 11:26:30 AM T [facility] Verbal report given to ED NANCY Torrez. Name Value Range Interpretation Code Description Data Harriett rce(s) Supporting Document(s ) ID Date Data Source [id number] 01/11/2019 11:01:43 AM EDT [facility] Name Value Range Interpretation Description Data Sup porting Code Source(s) Document(s ) Service comment [facility] Bacteria [facility] - Good identified in [facility] specimen by Culture ID Date Data Source [id number] 01/10/2019 08:54:14 AM EDT [facility] XR CHEST PORTClinical data: SepsisPriors : 12/29/2018.Findings: Examination is compromised due to limited inspiration a nd patientrotation. Heart size is unchanged. Haziness seen at the right lung base ca n bedue to small effusion with atelectasis/infiltrate. No confluent le ft lungprocess is seen. No evidence of CHF.IMPRESSION: Limited study. Suspect right lung base process which may be due tosmall effusion with atelectasis/infilt rate. Signing date/time: 01/10/2019 8:54 AMSigned by: HIGINIO BLACKWELL Name Value Range Interpretation Code Description Data Harriett rce(s) Supporting Document(s ) ID Date Data Source [id number] 01/10/2019 10:10:05 AM EDT [facility] Name Value Range Interpretation Description Data Sup porting Code Source(s) Document(s ) Color of Urine YEL [facility] Appearance of CLEAR Abnormal (applies [facility] - Urine to non-numeric Good results) [facility] Specific gravity 1.016 1.003-1. [facility] - of Urine by 030 Good Refractometry [facility] pH of Urine by 7.0 4.6-8.0 [facility] - Test strip Good [facility] Protein NEG [facility] - [Mass/volume] in Good Urine by Test [facility] Glucose NEG [facility] - [Mass/volume] in Good Urine by Taoist Automated test [facility] strip Ketones NEG [facility] - [Presence] in Good Urine by [facility] Automated test [facility] strip Bilirubin.total NEG [facility] - [Presence] in Good Urine [facility] Hemoglobin NEG [facility] - [Presence] in Good Urine by Test [facility] Urobilinogen 0.2 0.2-1.0 [facility] - [Presence] in EU/dL Good Urine by [facility] Automated test [facility] strip Nitrite NEG [facility] - [Presence] in Good Urine by [facility] Automated test [facility] strip Leukocyte NEG [facility] - esterase Good [Presence] in Taoist Urine by Hospital Automated test strip Leukocytes 0-5 [facility] - [Presence] in Good Urine sediment [facility] by Light Hospital microscopy Erythrocytes 0-3 [facility] - [#/area] in Good Urine sediment [facility] by Microscopy Hospital high power field Epithelial cells 0-10 [facility] - [#/area] in Good Urine sediment [facility] by [facility] Hospital high power field Bacteria NONE [facility] - [Presence] in Good Urine sediment [facility] by Light [facility] microscopy Casts [Presence] NONE Abnormal (applies [facility] - in Urine to non-numeric Good sediment by results) [facility] HYALINE Crystals [Presence] in Urine sediment by NONE [facility] Light microscopy ID Date Data Source [id number] 01/10/2019 08:00:17 AM EDT [facility] Patient to ED via EMS: lethargic, warm t o touch, tachypneic with O2 via NRB onarrival (NC 4L @ baseline), and tachycardic. As per EMS: patient referred to EDfor increase in resp rate and decrease in SpO2. Patie nt placed on continuouscardiac and pulse-ox monitoring, initial EKG done, and O2 con tinued via NC @ 4L. Name Value Range Interpretation Code Description Data Harriett rce(s) Supporting Document(s ) ID Date Data Source [id number] 01/15/2019 08:38:44 AM EDT [facility] Name Value Range Interpretation Description Data Sup porting Code Source(s) Document(s ) Service comment [facility] Bacteria [facility] identified in [facility] specimen by Culture ID Date Data Source [id number] 01/10/2019 07:48:31 AM EDT [facility] G ood [facility] Name Value Range Interpretation Description Data Sup porting Code Source(s) Document(s ) pH of Arterial 7.46 7.35-7.4 Above high normal [facility] - Good blood 5 [facility] Carbon dioxide 53 mmHg 32-48 Above high normal [facility] - Good [Partial Taoist pressure] in Hospital Arterial blood Oxygen 66 mmHg 83-108 Below low normal [facility] - Good [Partial Taoist pressure] in Hospital Arterial blood Carbon 39 19-24 Above high normal [facility] - Good dioxide, total mmol/L [facility] [Moles/volume] Hospital in Arterial blood Bicarbonate 38 21-28 Above high normal [facility] - Go od [Moles/volume] mmol/L [facility] in Arterial Hospital blood Oxygen 95 % 94-98 [facility] - Good saturation in [facility] Base excess in 11.8 0-3 Above high normal [facility] - Good Arterial blood mmol/L [facility] by calculation Hospital Body site [facility] NASAL O24 Service comment [facility] ID Date Data Source [id number] 01/10/2019 10:55:53 AM EDT [facility] Name Value Range Interpretation Description Data Sup porting Code Source(s) Document(s ) Leukocytes 10.4 4.8-10.6 [facility] - [#/volume] in K/uL Good Blood by [facility] Automated count Hospital Erythrocytes 3.58 4.70-6.0 Below low normal [facility] - [#/volume] in M/uL 0 Good Blood by [facility] Automated count Hospital Hemoglobin 12.0 14.0-18. Below low normal [facility] - [Mass/volume] in g/dL 0 [facility] Hematocrit 36.2 % 42.0-52. Below low normal [facility] - [Volume 0 Good Fraction] of [facility] Blood by Hospital Automated count Erythrocyte mean 101.1 FL 81.0-94. Above high normal [facility] - corpuscular 0 Good volume [Entitic Taoist volume] by Hospital Automated count Erythrocyte mean 33.5 PG 27.0-35. [facility] - corpuscular 0 Good hemoglobin Taoist [Entitic mass] [facility] by Automated count Erythrocyte mean 33.1 30.7-37. [facility] - corpuscular g/dL 3 Good hemoglobin [facility] [Mass/volume] by Automated count Erythrocyte 16.4 % 11.5-14. Above high normal [facility] - distribution 0 Good width [Ratio] by [facility] Automated count Hospital Platelets 233 K/uL 130-400 [facility] - [#/volume] in Good Blood by [facility] Automated count Hospital Platelet mean 8.9 FL 9.2-11.8 Below low normal [facility] - volume [Entitic Good volume] in Blood [facility] Automated Hospital count Segmented 85 % 48.0-72. Above high normal [facility] - neutrophils/100 0 Good leukocytes in [facility] Lymphocytes/100 8 % 18.0-40. Below low normal [facility] - leukocytes in 0 [facility] Blood [facility] Monocytes/100 5 % 2.0-12.0 [facility] - leukocytes in [facility] Eosinophils/100 2 % 0.0-7.0 [facility] - leukocytes in [facility] Basophils/100 0 % 0.0-3.0 [facility] - leukocytes in [facility] Segmented 8.9 K/UL 1.5-6.6 Above high normal [facility] - neutrophils Good [#/volume] in [facility] Lymphocytes 0.8 K/UL 1.5-3.5 Below low normal [facility] - [#/volume] in [facility] Monocytes 0.6 K/UL 0.0-1.0 [facility] - [#/volume] in [facility] Eosinophils 0.2 K/UL 0.0-0.7 [facility] - [#/volume] in [facility] Basophils 0.0 K/UL 0.0-0.1 [facility] - [#/volume] in [facility] Differential [facility] - cell count [facility] method [facility] Immature 0 % 0.0-2.0 [facility] - granulocytes/100 Good leukocytes in [facility] Blood by Hospital Automated count 1+MACROCYTOSIS Platelet adequacy [Presence] in Blood by [facility] Light microscopy ID Date Data Source [id number] 01/10/2019 09:03:53 AM EDT [facility] Name Value Range Interpretation Description Data Sup porting Code Source(s) Document(s ) Natriuretic 28 pg/mL 0-100 [facility] - [facility] peptide B [facility]ist [Mass/volume] [facility] in Serum or Plasma ID Date Data Source [id number] 01/10/2019 08:36:52 AM EDT [facility] Name Value Range Interpretation Description Data Sup porting Code Source(s) Document(s ) Lactate 1.9 0.4-2.0 [facility] - Good [Moles/volu MMOL/L [facility]] in Hospital Serum or Plasma ID Date Data Source [id number] 01/10/2019 08:30:01 AM EDT [facility] Name Value Range Interpretation Description Data Sup porting Code Source(s) Document(s ) Troponin 0.00-0.05 [facility] - Good I.cardiac [facility] [Mass/volume Hospital ] in Serum or Plasma (NOTE)The presence of detectable troponi n above the reference rangeindicates myocardial injury which may be due to is chemia,myocarditis, trauma, etc. Clinical correlation is necessary todetermine the significance of this finding. Sequential testing isrecommended to determine if th e typical rise and fall of cTnI isdemonstrated. Note, cardiac troponin-I has a relatively longhalf-life and may be present well after the CK MB has returne d tobaseline. cTnI results in the indeterminate/enriquez zone for myocardial infarction: 0.06 to 0.59 ng/mL cTnI cutoff/range of values consistent with m yocardial infarction: 0.60 to 1.50 ng/mL ID Date Data Source [id number] 01/10/2019 08:30:01 AM EDT [facility] - [facility] Name Value Range Interpretation Description Data Sup porting Code Source(s) Document(s ) Sodium 126 136-145 Below low normal [facility] - Good [Moles/volume] mmol/L [facility] in Serum or Hospital Plasma Potassium 4.5 3.5-5.1 [facility] - Good [Moles/volume] mmol/L [facility] in Serum or Hospital Plasma Chloride 87 98-107 Below low normal [facility] - Good [Moles/volume] mmol/L [facility] in Serum or Hospital Plasma Carbon 38 21-32 Above high normal [facility] - Good dioxide, total mmol/L [facility] [Moles/volume] Hospital in Serum or Plasma Anion gap in 6 mmol/L 10-20 Below low normal [facility] - Go od Serum or [facility] Plasma Hospital Glucose 114 74-106 Above high normal [facility] - Good [Mass/volume] mg/dL [facility] in Serum or Hospital Plasma Urea nitrogen 7 mg/dL 7-18 [facility] - Good [Mass/volume] [facility] in Serum or Hospital Plasma Creatinine 0.48 0.70-1.3 Below low normal [facility] - Good [Mass/volume] mg/dL 0 [facility] in Serum or Hospital Plasma Glomerular >60 [facility] - Good filtration Taoist rate/1.73 sq M Hospital predicted among blacks [Volume Rate/Area] in Serum or Plasma by Creatinine-bas ed formula (MDRD) Glomerular >60 [facility] - Good filtration Taoist rate/1.73 sq M Hospital predicted among non-blacks [Volume Rate/Area] in Serum or Plasma by Creatinine-bas ed formula (MDRD) (NOTE)Estimated GFR is calculated using the Modification of Diet in RenalDisease (MDRD) Study equation, reported for both Americans(GFRAA) and non- Americans (GFRNA), and normalized to 1.7 3a7nwiz surface area. The physician must decide which value applies tothe patient . The MDRD study equation should only be used inindividuals age 18 or older. It has no t been validated for thefollowing: women, patients with serious comorbid co nditions,or on certain medications, or persons with extremes of body size,muscl e mass, or nutritional status. Calcium [Mass/volume] in 9.4 mg/dL 8.5-10.1 [facility] - Good Serum or Plasma [facility] ital Bilirubin.total 0.2 mg/dL 0.2-1.0 [facility] - Good [Mass/volume] in Serum or [facility] Plasma Alanine aminotransferase 12 U/L 13-61 Below low normal [facility] - Good [Enzymatic activity/volume] [facility] in Serum or Plasma Aspartate aminotransferase 13 U/L 15-37 Below low normal [facility] - Good [Enzymatic activity/volume] [facility] in Serum or Plasma by With P-5'-P Alkaline phosphatase 61 U/L 45-117 [facility] - G ood [Enzymatic activity/volume] [facility] in Serum or Plasma Protein [Mass/volume] in 7.4 g/dL 6.4-8.2 [facility] - Good Serum or Plasma [facility] ital Albumin [Mass/volume] in 2.3 g/dL 3.5-4.7 Below low normal [facility] - Good Serum or Plasma by [facility] Bromocresol purple (BCP) dye binding method Globulin [Mass/volume] in 5.1 g/dL 1.7-4.7 Above high [facility] HS - Good Serum by [facility] Albumin/Globulin [Mass 0.5 0.7-2.8 Below low normal [facility] - Good Ratio] in Serum or Plasma [facility] ID Date Data Source [id number] 01/10/2019 08:30:01 AM EDT [facility] Name Value Range Interpretation Description Data Sup porting Code Source(s) Document(s ) Creatine 29 U/L 39-308 Below low normal [facility] - Good kinase [facility]ist [Enzymatic Hospital activity/volu me] in Serum or Plasma ID Date Data Source [id number] 01/10/2019 08:28:16 AM EDT [facility] Name Value Range Interpretation Description Data Sup porting Code Source(s) Document(s ) Prothrombin 10.3 sec 9.4-11.1 [facility] time (PT) [facility] INR in 1.0 0.8-1.2 BSS - Good Platelet poor Taoist plasma by [facility] Coagulation assay ID Date Data Source [id number] 01/10/2019 08:24:14 AM EDT [facility] Name Value Range Interpretation Description Data Sup porting Code Source(s) Document(s ) aPTT in 25.3 SEC 21.0-28. [facility] - Good Platelet poor 0 Taoist plasma by Hospital Coagulation assay Therapeutic Range = 42.0-60.0 secs ID Date Data Source [id number] 01/15/2019 08:38:41 AM EDT [facility] Value Range Interpretation Description Data Sup porting Code Source(s) Document(s ) Service comment [facility] Bacteria [facility] identified in [facility] Unspecified Hospital specimen by Culture ID Date Data Source [id number] 12/30/2018 09:31:27 PM EDT [facility] Physician Discharge SummaryPatient ID:Lina [id number] y.o.1950dmit date: 12/12/2018Discharge date:Discharge Diagnoses: Principal Diagnosis <principal problem not specified> Active Problems: Pneumonia (11/08/2018) Sepsis due to und etermined organism (HCC) (12/12/2018) Generalized anxiety disorder (12/30/2018) Sepsis- poa Aspiration Pneumonia Acute respiratory failure with hypercapnia and hypoxia COPD exacerbation Dysphagia s/p surgical placed peg Pleural effusion s/p left chest tube Fluid overload Leukocytosis Mentally challenged Seizure Hyperparathy roidConsults: Cardiology, Pulmonary/Intensive care, ID, GI and Nephrology andGastroent erologyHospital Course: Patient who presented with lethargy, cough, fever, hypoxia,met abolic acidosis and hypothermia from [facility].He has medical history of Dysphagia with re cent admission s/p surgical pegplacement on 11/17/18, severe intellectual disability, Chronic respiratoryfailure, large Hiatal Hernia, hyperparathyroid unspecified, p ersonal h/opulmonary embolus, anxiety disorder, kyphosis and schizophreniaPt w as admitted with encounter diag of Acute Respiratory failure withhypercapnia and hypoxia, metabolic acidosis, sepsis poa, Acute COPD exacerbationand dysphagia s/p surgical placement of peg and Pleural effusion s/p left chesttube. Also diag of fluid overload, mentally challenged, seizure disorder andhyperparathyroid.Pt is nonverbal and unable to provide a history. On admission, he had a lacticacid level of 5.5. The cxr with findings of opacity at the right lung basemaybe infiltrative or atelectatic.Chest ct scan dated 12/18/18 with findings of increased in b/l pleural eff usionswith assoc consolidations with persistent cardiomediastinal shift towar ds theright.He was admitted with encounter diag of Ac respiratory failure with hype rcapniaand hypoxia, metabolic acidosis, sepsis-poa, aspiration pneumonia, acute copdexac, Atlectasis, dysphagia s/p recent surgical placed peg, mentally challenged ,seizure and hyperparathyroid.He was initially admitted to CCU , he was place d on O2 NC and prn BIPAP, IVfluids, iv antibiotics, iv steroids and nebulizers. His lactic acid normalizedwith IV fluids.Pt respiratory status gradually improving a nd he was transferred to telemetryfloor. Pt started on bolus TF to possible decrease risk of recurrent aspirationpneumonia. He was placed on restraints with Mitts. Pt had swelling LUE, CtA LUE 12/18/18 showed patent arterial vessels, , B/Lpleural ef fusins, and bibasilar atelectasis. Shift of mediastinal structures tothe rt. Pt had CT guided left thoracentesis on 12/19/18. A left pig tailcatheter was placed. Pt norma pierre was interested in having the peg tube convertedto a Jtube to reduce risk of as piration.Pt was seen by gi and g tube conversion to jtube was planned pending improvementin patients resp statusPt hosp course noted for recurrent resp distress , po prednisone was dc pt wasrestarted on iv solumedrol and cont'd on nightly BIPAP. Pt developed fluidoverload and received prn iv lasix. Chest tube was removed,no eleonora vonda draining.Pt respiratory status improving. Pt tolerating bolus TF. No recurrentaspi ration. He has had loose stools despite switching the TF.Questran was addedtoda y. He has leukocytosis , steroid induced, trending downward. He is awakeand aler t. He is wearing O2 NC, with improved respiratory status. D/W pt 'sbrother in law Dr Martin, who is in agreement to defer conversion of GT to JTfor now and contin ue bolus TF and hopefully avoiding recurrent aspirations.Disposition: detention care facilityPatient Instructions:Current Discharge Medication ListSTART taking th baldo medications Detailsbacitracin 500 unit/gram ointment Apply 1 Packet to aff ected area two (2) timesa day. Indications: minor skin infection due to bacteria, fa cial scabsQty: 20 Packet, Refills: 0cholestyramine-aspartame (QUESTRAN LIGH T) 4 gram packet Take 1 Packet by mouththree (3) times daily (with meals).Qty: 90 Pac ket, Refills: 2potassium, sodium phosphates (NEUTRA-PHOS) 280-160-250 mg packet 1 Pa cket by PerG Tube route four (4) times daily for 1 day.Qty: 4 Packet, Refills: 0valAC Yclovir (VALTREX) 1 gram tablet 1 Tab by Per G Tube route every twelve (12)hours for 4 days.Qty: 8 Tab, Refills: 0CONTINUE these medications which have CHANGED Detailscl orazepate (TRANXENE) 3.75 mg tablet 1 Tab by Per G Tube route nightly. MaxDaily Amoun t: 3.75 mg.Qty: 30 Tab, Refills: 5 Associated Diagnoses: Generalized anxiety disorderm ultivitamin (ONE A DAY) tablet 1 Tab by Per G Tube route daily.Qty: 30 Tab, Refills: 5 cinacalcet (SENSIPAR) 30 mg tablet Take 2 Tabs by mouth daily.Qty: 60 Tab, Refills : 5lamoTRIgine (LAMICTAL) 25 mg tablet 2 Tabs by Per G Tube route two (2) times aday.Q ty: 60 Tab, Refills: 5!! albuterol-ipratropium (DUO-NEB) 2.5 mg-0 .5 mg/3 ml nebu 3 mL by Nebulizationroute every six (6) hours. Every 6 hours while awakeQty: 30 Nebule, Refills: 0!! albuterol-ipratropium (DUO-NEB) 2.5 mg-0 .5 mg/3 ml nebu 3 mL by Nebulizationroute every four (4) hours as needed for Cough (wheezing, shortness of breath).Qty: 30 Nebule, Refills: 0budesonide (PULMICORT) 0.5 mg/2 mL nbsp 2 mL by Nebulization route two (2) timesa day.Qty: 60 Each, Refills : 0 !! - Potential duplicate medications found. Please discuss with provider.CONT INUE these medications which have NOT CHANGED Detailspantoprazole (PROTONIX) 40 mg gra nules for oral suspension 40 mg by Per G Tuberoute Daily (before breakfast).Qty: 30 Each, Refills: 2valproate (DEPAKENE) 250 mg/5 mL syrup Take 750 mg by mouth two ( 2) times a day.Activity: PT/OT Eval and TreatDiet: PEG feeding bolus , Q 4 hours Follow-up with Dr Hills in 1 -2 days.Signed:Mili Hills, DOSeptember 20183:59 PM Name Value Range Interpretation Code Description Data Harriett rce(s) Supporting Document(s ) ID Date Data Source [id number] 12/30/2018 08:38:56 PM EDT [facility] Patient picked up by [facility] for transport to [place]. Vitalsstable, patient breathing comfortably, O2 sat hi gh 90's on 4L. Left at 2019 Name Value Range Interpretation Code Description Data [facility] rce(s) Supporting Document(s ) ID Date Data Source [id number] 12/30/2018 06:53:58 PM EDT [facility] Discharge medications reviewed with career transition specialist and appropriate educationalmaterials and side effects teaching were provided. [facility] Discharge Medication ListSTART taking these medications Detai lsbacitracin 500 unit/gram ointment Apply 1 Packet to affected area two (2) timesa d ay. Indications: minor skin infection due to bacteria, facial scabsQty: 20 Packet, Re fills: 0cholestyramine-aspartame (QUESTRAN LIGHT) 4 gram packet Take 1 Packet by mo uthtjordi (3) times daily (with meals).Qty: 90 Packet, Refills: 2potassium, sodium phos phates (NEUTRA-PHOS) 280-160-250 mg packet 1 Packet by PerG Tube route four (4) times daily for 1 day.Qty: 4 Packet, Refills: 0valACYclovir (VALTREX) 1 gram tablet 1 Tab by Per G Tube route every twelve (12)hours for 4 days.Qty: 8 Tab, Refills : 0CONTINUE these medications which have CHANGED Detailsclorazepate (TRANXENE) 3. 75 mg tablet 1 Tab by Per G Tube route nightly. MaxDaily Amount: 3.75 mg.Qty: 3 0 Tab, Refills: 5 Associated Diagnoses: Generalized anxiety disordermultivitamin (ONE A DAY) tablet 1 Tab by Per G Tube route daily.Qty: 30 Tab, Refills: 5cinacalcet (SENSIPAR) 30 mg tablet Take 2 Tabs by mouth daily.Qty: 60 Tab, Refills: 5lamoTRIgine (LAMICTAL) 25 mg tablet 2 Tabs by Per G Tube route two (2) times aday.Qty: 60 Tab, Re fills: 5!! albuterol-ipratropium (DUO-NEB) 2.5 mg-0.5 mg/3 ml nebu 3 mL by Nebuliza tionroute every six (6) hours. Every 6 hours while awakeQty: 30 Nebule, Refills: 0!! albuterol-ipratropium (DUO-NEB) 2.5 mg-0.5 mg/3 ml nebu 3 mL by Nebulizationroute e very four (4) hours as needed for Cough (wheezing, shortness of breath).Qty: 30 Nebule, Refills: 0budesonide (PULMICORT) 0.5 mg/2 mL nbsp 2 mL by Nebulization route two (2) timesa day.Qty: 60 Each, Refills: 0 !! - Potential duplicate medications fou nd. Please discuss with provider.CONTINUE these medications which have NOT CHANGED Detailspantoprazole (PROTONIX) 40 mg granules for oral suspension 40 mg by Pe r G Tuberoute Daily (before breakfast).Qty: 30 Each, Refills: 2valproate (DEPAKENE) 250 mg/5 mL syrup Take 750 mg by mouth two (2) times a day.med list and instructs t o [place] Name Value Range Interpretation Code Description Data [facility] rce(s) Supporting Document(s ) ID Date Data Source [id number] 12/30/2018 06:50:10 PM EDT [facility] sensibar crushed and fully dissolved via peg Ca++ levels stable Calm lesscongested Name Value Range Interpretation Code Description Data [facility] rce(s) Supporting Document(s ) ID Date Data Source [id number] 12/30/2018 06:42:45 PM EDT [facility] questram started to bulk up loosish Sto ols. Bolus fdgs tolerated Turned andrepositioned freq Peg site less redde nataly suture intact Name Value Range Interpretation Code Description Data [facility] rce(s) Supporting Document(s ) ID Date Data Source [id number] 12/30/2018 03:46:56 PM EDT [facility] PULMONARY/ CCM- Consult NotePatient: Ivelisse Carlin Sex: male DOA: 12/12/2018Date of : 1 Age: 68 y.o. LOS: LOS: 18 daysHPI: kassie Carlin is a 68 y.o. 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 Authorizing Providerpantopr azole (PROTONIX) 40 mg granules for oral suspension 40 mg by Per G Tuberoute Kyleigh y (before breakfast). 11/28/18 Yes Mili Hills, DOmultivitamin (ONE A DAY) tabl et Take 1 Tab by mouth daily. Yes Provider,Historicalclorazepate (TRANXENE ) 3.75 mg tablet Take by mouth nightly. Yes Provider,Historicalalbuterol-ipratro pium (DUO-NEB) 2.5 mg-0.5 mg/3 ml nebu 3 mL by Nebulizationroute every six (6) hours as needed. Yes Provider, HistoricallamoTRIgine (LAMICTAL) 25 mg t ablet Take 50 mg by mouth two (2) times a day.Yes Provider, Historicalcinacalcet ( SENSIPAR) 30 mg tablet Take 60 mg by mouth daily. Yes Provider,Historicalvalproat e (DEPAKENE) 250 mg/5 mL syrup Take 750 mg by mouth two (2) times a day.Yes Provider, HistoricalNo Known AllergiesHistory reviewed. No pertinent surgical history.History re viewed. No pertinent family history.Social HistorySocioeconomic History Marital st atus: SINGLE Spouse name: Not on file Number of children: Not on file Years o f education: Not on file Highest education level: Not on fileTobacco Use Smoking s tatus: Never Smoker Smokeless tobacco: Never UsedSubstance and Sexual Activity Alcoh ol use: No Drug use: NoReview of SystemsPertinent items are noted in the History of Present Illness.Physical Exam:Current medications:Current Facilit y-Administered Medications: albuterol-ipratropium (DUO-NEB) 2.5 MG-0 .5 MG/3 ML, 3 mL, Nebulization, Q6AQCVY, Krystian Monae MD, 3 mL at 12/30/18 1352 cholestyramine-aspartame (QUESTRAN LIGHT) packet 4 g, 4 g, Oral, TID WITHDaniela LE Shirley, DO valACYclovir (VALTREX) tablet 1,000 mg, 1,000 mg, Per G Tube, Q 12H, Natasha Dudley MD, 1,000 mg at 12/30/18 1009 haloperidol lactate (HALDOL) inje ction 2 mg, 2 mg, IntraVENous, Q6H PRN,Stella Hamilton MD, 2 mg at 12/29/18 2145 ac etaminophen (TYLENOL) solution 650 mg, 650 mg, Per NG tube, Q4H PRN,Mili Hills DO, 650 mg at 12/29/18 2145 albuterol-ipratropium (DUO-NEB) 2.5 MG-0 .5 MG/3 ML, 3 mL, Nebulization, Q4HPRN, Mili Hills DO, 3 mL at 12/16/18 04 17 potassium, sodium phosphates (NEUTRA-PHOS) packet 1 Packet, 1 Packet, Oral,QID, Krystian Monae MD, 1 Packet at 12/30/18 1313 acetylcysteine (MUCOMYST ) 100 mg/mL (10 %) nebulizer solution 200 mg, 2 mL,Nebulization, BID RT, Shaylee Hills DO, 200 mg at 12/30/18 0756 bacitracin 500 unit/gram packet 1 Packet, 1 Packet, Topical, BID, Mili Hills DO, 1 Packet at 12/30/18 1005 budesonide (PULMICORT ) 500 mcg/2 ml nebulizer suspension, 500 mcg,Nebulization, BID RT, Van Plunkett MD, 500 mcg at 12/30/18 0824 lamoTRIgine (LaMICtal) tablet 50 mg, 50 mg, Per G Tu be, BID, Van Plunkett MD, 50 mg at 12/30/18 1005 valproic acid (as sodium salt) (D EPAKENE) 250 mg/5 mL (5 mL) oral [id number] mg, 750 mg, Per G Tube, BID, Christine Plunkett MD, 750 mg at 12/30/18 1005 cinacalcet (SENSIPAR) tablet 60 mg, 60 mg, Oral, DA PIERRE, Van Plunkett MD,60 mg at 12/30/18 1005 pantoprazole (PROTONIX) granules for oral suspension 40 mg, 40 mg, Per GTube, ACB, Van Plunkett MD, 40 mg at 0730 heparin (porcine) injection 5,000 Units, 5,000 Units, SubCUTAneous, Q12H,B Van tam MD, 5,000 Units at 12/30/18 1314 sodium chloride (NS) flush 5-10 m L, 5-10 mL, IntraVENous, PRN, Van Plunkett MDDataVisit VitalsBP 101/50 (BP 1 Locati on: Left arm, BP Patient Position: At rest)Pulse 80Temp 97.6 F (36.4 C)Resp 20Ht 5' 2" (1.575 m)Wt 51.8 kg (114 lb 4.8 oz)SpO2 96%BMI 20.91 kg/m Intake and Out put:Date 12/29/18699 - 12/30/18 0659 12/30/18 07 - 12/31/18 0659Shift 699- 1858 6865-1863 24 Hour Total 3441-5470 2191-1855 24 Hour TotalINTAKENG/GT 600 8 35 1435 390 390 Water Flush Volume (mL) (PEG/Gastrostomy Tube 12/12/18) 75 75 1 50 150 Medication Volume (PEG/Gastrostomy Tube 12/12/18) 60 60 Intake (ml) (PEG/ Gastrostomy Tube 12/12/18) 006 434 8364 240 240Shift Total(mL/kg) 600(11.4) 835(16.1 ) 1435(27.7) 390(7.5) 390(7.5)OUTPUTUrine(mL/kg/hr) 2750(4.3) 350(0.6) 3100(2.5) Urine Voided 2750 350 3100Stool Stool Occurrence(s) 1 x 1 xShift Total(mL/kg) 2750(52) 350(6.8) 3100(59.8)NET -2150 485 -1665 390 390We ight (kg) 52.8 51.8 51.8 51.8 51.8 51.8Pulse OX:SpO2 Readings from Last 6 Encounters: 12/30/18 96%11/27/18 91%09/26/15 96%@LASTSAO2(6)@PHYSICAL EXAM:General: Lethargic,responding.Head: Normocephalic, without obvious abnormality, atraumatic. Eyes: Conjunctivae clear, anicteric sclerae. Pupils are equalNose: Nares n ormal. No drainage or sinus tenderness.Throat: Lips, mucosa, and tongue normal. No ThrushNeck: Supple, symmetrical, no adenopathy, thyroid: no n tender no carotid bruit and no JVD.Back: Symmetric, No CVA tenderness.Lungs: Scattered rhonchi,Chest wall: No tenderness or deformity. No Accessory muscle use.He art: Regular rate and rhythm, no murmur, rub or gallop.Abdomen: Soft, non-tende r. Not distended. Bowel sounds normal. No massesExtremities: Extremities normal, a traumatic, No cyanosis. No edema. No clubbingSkin: Texture, turgor normal . No rashes or lesions. Not JaundicedLymph nodes: Cervical, supraclavicular normal. Neurologic: Lethargic.Most recent labs:Recent Labs 12/29/190212/28/18 0321WBC 15.0* 26.5* 9.2HGB 10.5* 11.4* 11.4*HCT 31.2* 33.4* 35.1*PLT 265 207 24 1Recent Labs 12/29/1902321NA 141 133* 137K 3.9 4.1 4.6 CL 99 95* 96*CO2 38* 35* 34*GLU 69* 146* 100BUN 17 13 19*CREA 0.33* 0.46* 0.45*CA 9.3 9.9 9.5MG 1.8 1.7 1.9PHOS 3.2 2.4* 2.5ALB 2.0* 2.3* 2.2*No results for inpu t(s): PH, PCO2, PO2, HCO3, FIO2 in the last 72 hours.ABG:No results for input(s): PH , PCO2, PO2, HCO3, FIO2 in the last 72 hours.Cultures:No results found for: [employer] SLab ResultsComponent Value Date/Time Culture result: NO GROWTH AFTER 16 HOURS 019 11:23 AM Culture result: NO GROWTH AFTER 16 HOURS 12/29/2018 11:00 AM Culture res ult: 12/29/2018 11:00 AM 10,000 to 50,000COLONIES/mLMIXED GRAM NEGATIVE JHON RAIDENTIFICATION AND SUSCEPTIBILITY TO FOLLOW Culture result: (A) 12/29/2018 11:00 AM 50,000-100,000 COLONIES/mL GRAM POSITIVE COCCI IDENTIFICATION ANDSUSCEPTIBILITY T O FOLLOW Culture result: NO GROWTH 2 DAYS 12/24/2018 09:45 AM Culture result: NO G ROWTH 5 DAYS 12/23/2018 12:00 PM Culture result: NO GROWTH 5 DAYS 12/23/2018 11:4 0 AM Culture result: NO GROWTH 4 DAYS 12/19/2018 12:30 PM Culture result: NO G ROWTH 4 DAYS 12/19/2018 12:30 PM Culture result: NO GROWTH 1 DAY 12/12/2018 08:04 PM Culture result: NO GROWTH 5 DAYS 12/12/2018 07:40 PM Culture result: NO G ROWTH 5 DAYS 12/12/2018 07:40 PM Culture result: NO GROWTH 2 DAYS 11/20/2018 09:0 0 AM Culture result: NO GROWTH 5 DAYS 11/07/2018 08:10 PM Culture result: NO G ROWTH 5 DAYS 11/07/2018 08:00 PMImages:Cta Chest W Or W Wo ContResult Date: 11/09/19 19Examination: CTA Chest ? PE angiography History: Hypoxia; rule out pneumoniavers us pulmonary embolism Priors: None Technique: Low-dose, multiplanar,helica l CTA chest was performed with bolus IV injection from lung apices tobases. 3D- reformatted images were obtained and reviewed on a dedicated viewingworkstation and di rectly supervised. Contrast: A total of 71 mL of Isovue-370was administered intravenou sly for this procedure. Findings: No evidence ofpulmonary embolism is seen. T here is decreased size of the right hemithorax fromchronic scarring and retr action with mediastinal shift left to right.Additional area of consolidation i s seen in the right lower lobe and suggestssuperimposed pneumonia with subs egmental atelectasis. Subsegmental atelectasisis also noted in the left jorge g base, with pleural parenchymal scarring. Lowlung volumes are seen. No pneumothora x seen. Aorta normal in caliber withoutaneurysm or dissection. Mediastin um no adenopathy. Mediastinal shift is seen inthe left and right as a result of chr onic changes in the right hemithorax.Heart shows no chamber enlargement or pericard ial effusion. No acute fracturesseen in the bony thorax, sternum, manubrium and rib cage. Multiple compressiondeformities are seen in the mid and lower thoracic spine , with superimposedspondyloarthropathy. Cannot exclude acute fracture.Impression : No evidence of pulmonary embolism Right lower lobe pneumoniasuggested. Incidenta l scarring and retraction in the right hemithorax fromremote/chronic inflammato ry disease and/or trauma. Bibasilar subsegmentalatelectasis. Report Electron ically Signed By: Pawel Zafar M.D. -11/08/2018 12:40 AMXr Chest PortResult D ate: 11/07/2018XR CHEST PORT CLINICAL INDICATION PROVIDED:. "sob." COMPARISON: . 09/26/2015.FINDINGS:. The pericardial/cardiac silhouette is enlarg ed in the transversedimension. There is no pulmonary vascular congestion or interst itial edema.Linear density in the left lung base and faint densities in the right mi d tolower lung likely represent atelectasis. There is no lobar consolidation oreffusi on. There is no pneumothorax.IMPRESSION:. Bilateral lower lung atelectasis. No donna dence of consolidation oreffusion.Assessment/PlanActive Problem s: Pneumonia (11/08/2018) Sepsis due to undetermined organism (HCC) (12/12/2018) Acute resp failure combined, pneumonia acute copd exacerbationPLAN,Monitoring,bipap p rn for resp distressChest percussionss/p left pig tail catheterIvabx as per id,Iv ster oids taperbipap prn and at night.NebS/p peg,feeding started.D/w nursing staff,di linda planning.MARICEL Munsoneptember 2018The billing code submitted in as sociation with this evaluation also includes thetime to review patient's prior record s, communicate with the physician team,obtain corroborating data, and discuss the risk and benefits of the proposedmanagement plan with the patient and their family >25 mi nutes. Name Value Range Interpretation Code Description Data [facility] rce(s) Supporting Document(s ) ID Date Data Source [id number] 12/30/2018 03:39:18 PM EDT [facility] Care Management InterventionsPCP Verifie d by CM: Yes(Dr. Mili Hills)Mode of Transport at Discharge: BLSTransition of Care Consult (CM Consult): Discharge PlanningMyChart Signup: NoDischarge Dura ble Medical Equipment: NoPhysical Therapy Consult: NoOccupational Therapy Consult: NoSpeech Therapy Consult: NoCurrent Support Network: Nursing Facility([facility] Home at [facility] )Plan discussed with Pt/Family/Caregiver: YesFreedom of Choic e Offered: YesVeteran Resource Information Provided?: RefusedDischarge LocationDis harge Placement: senior living facility(LTR at [place])Pt discharging back to [facility] where he is a LTR via [employer] mobile at 8pm. RN is aware. spoke wit h pt's family members sister and nxprwyi-[id number] viatelephone at length wh o are aware and agreeable to discharge today. Spoke withfacility liaison Sandra who is aware and agreeable to accepting pt back and totransport time arranged. Name Value Range Interpretation Code Description Data [facility] rce(s) Supporting Document(s ) ID Date Data Source [id number] 12/30/2018 02:11:06 PM EDT [facility] Relevant ProblemsNo relevant active prob lemsAnesthetic HistoryReview of Systems / Medical HistoryPertinent labs reviewedPu lmonaryCOPDComments: H/o resp failure Neuro/PsychPsychiatric history Cardiovas cularComments: EF 55-60%GI/Hepatic/RenalGERD Endo/Other Other FindingsComments: S/p s urgical J tube and surgical G tubePhysical ExamAirwayMallampati: IIComments: Unable to assess CardiovascularRhythm: regularRate: abnormal DentalComments: Poor dentitionP ulmonaryDecreased breath sounds AbdominalGI exam deferred Other FindingsAnesthetic P lanASA: 3Anesthesia type: MAC and general - backupAnesthetic plan and risks discusse d with: Family and Legal guardianPhone consent from pt's nephewPulmonary yanely nce in the chart Name Value Range Interpretation Code Description Data [facility] rce(s) Supporting Document(s ) ID Date Data Source [id number] 12/30/2018 12:19:08 PM EDT [facility] Spoke with [place] [facility] liaison, pt is ac cepted to return for discharge today.Spoke with MD Hills who plans to discharge pt . [employer] arranged for 4pm. Name Value Range Interpretation Code Description Data [facility] rce(s) Supporting Document(s ) ID Date Data Source [id number] 12/30/2018 12:05:50 PM EDT [facility] Resps quiet oral care and suction Mitts on for safety pt tends to "hit self" inface. Incont loose bm Name Value Range Interpretation Code Description Data [facility] rce(s) Supporting Document(s ) ID Date Data Source [id number] 12/30/2018 12:04:13 PM EDT [facility] Cardiology Progress Note12/30/2018 11:37 AMAdmit Date: 12/12/2018Admit Diagnosis: Sepsis due to undetermined organism (HCC ) [A41.9];Pneumonia[J18.9]Subjective:Mr. Carlin is a 68 y.o. year old male who was originally seen for fluidoverload.Pt has severe intellectual disability, schizoph mandy, seizure disorder,hyperparathyroidism, chronic respiratory failure, kyphosis & pulmonary embolism.Pt is s/p surgical PEG 11/17/18 for dysphagia, left CT thoracente sis & pigtailcatheter 12/22/18. G tube was to be replaced with J tube to decrease aspi rationbut pt's respiratory status deteriorated. Elevated NT-proBNP noted. Pt isnonverbalPatient seen and examined at bedside. No new complaints. No events ov ernight.ROS was negative except for that written in the HPI.Objective:Physical Ex am:Visit VitalsBP 106/65 (BP 1 Location: Left arm, BP Patient Position: At rest)Pulse 79Temp 98.4 F (36.9 C)Resp 20Ht 5' 2" (1.575 m)Wt 114 lb 4.8 oz (51.8 kg)SpO2 99%BMI 20.91 kg/m SpO2 Readings from Last 6 Encounters:12/30/18 99%11/27/18 91%09/25 96% O2 Flow Rate (L/min): 4 l/minIntake/Output Summary (Last 24 hour s) at 12/30/2018 1201Last data filed at 12/30/2018 0924Gross per 24 hourIntake 16 25 mlOutput 1800 mlNet -175 mlGeneral Appearance: Well developed, well nourish ed, in no acute distressrestrained with mittsHead: Normocephalic/atraumaticEyes: EOM'S intact, conjunctiva pink, sclera non ictericENT: Grossly normalNeck: No JVD, carotid upstroke brisk, no bruit, no thyromegalyChest: Symmetrical, clear to auscultationCardiac: Regular rhythm, normal S1 S2 grade 1/6 MAYRA LLSBAbdomen: Soft, n on-tender, no organomegaly +PEGExtremities: No lower extremity edemaNeuro: Awake, al ert, nonverbal, no focal deficitsPsych: Not anxious or agitated.Skin: Warm, dry +exc oriations, discolored below right nostrilCurrent Facility-Administered Med icationsMedication Dose Route Frequency Provider Last Rate Last Dose albuterol- ipratropium (DUO-NEB) 2.5 MG-0.5 MG/3 ML 3 mL Nebulization Q6HWA Krystian Blanco M D 3 mL at 12/30/18 0756 valACYclovir (VALTREX) tablet 1,000 mg 1,000 mg Per G Tube Q12H Natasha Dudley MD 1,000 mg at 12/30/18 1009 haloperidol lactate (HALD OL) injection 2 mg 2 mg IntraVENous Q6H PRN Stella Hamilton MD 2 mg at 12/29/18 214 5 acetaminophen (TYLENOL) solution 650 mg 650 mg Per NG tube Q4H PRN Cesar Hills DO 650 mg at 12/29/18 2145 albuterol-ipratropium (DUO-NEB) 2.5 MG-0 .5 MG/3 ML 3 mL Nebulization Q4H PRNNelson, Mili, DO 3 mL at 12/16/18 0417 pot assium, sodium phosphates (NEUTRA-PHOS) packet 1 Packet 1 Packet Oral Krystian Grey MD 1 Packet at 12/30/18 1005 acetylcysteine (MUCOMYST) 100 mg/mL (10 %) nebulizer solution 200 mg 2 mLNebulization BID RT Mili Hills D O 200 mg at 12/30/18 0756 bacitracin 500 unit/gram packet 1 Packet 1 Packet Topi inez BID Mili Hills DO 1 Packet at 12/30/18 1005 budesonide (PULMICORT) 50 0 mcg/2 ml nebulizer suspension 500 mcg NebulizationBID RT Van Plunkett MD 500 mcg at 12/30/18 0824 lamoTRIgine (LaMICtal) tablet 50 mg 50 mg Per G Tub e BID Van Plunkett MD50 mg at 12/30/18 1005 valproic acid (as sodium salt) (DE PAKENE) 250 mg/5 mL (5 mL) oral solution 750mg 750 mg Per G Tube BID Christine Plunkett MD 750 mg at 12/30/18 1005 cinacalcet (SENSIPAR) tablet 60 mg 60 mg Oral KYLEIGH Y Van Plunkett MD 60mg at 12/30/18 1005 pantoprazole (PROTONIX) granules for ora l suspension 40 mg 40 mg Per G TubeACB Van Plunkett MD 40 mg at 12/30/18 0730 h eparin (porcine) injection 5,000 Units 5,000 Units SubCUTAneous Q12H Van Plunkett M D 5,000 Units at 12/29/18 2331 sodium chloride (NS) flush 5-10 mL 5-10 mL Int raVENous PRN Van Plunkett MDData Review:Labs:Chemistry Recent Labs 12/29/1902GLU 69* 146* 100NA 141 133* 137K 3.9 4.1 4.6CL 99 95* 96*CO2 38* 35* 34*BUN 17 13 19*CREA 0.33* 0.46* 0.45*CA 9.3 9.9 9.5AGAP 7* 7* 11AL B 2.0* 2.3* 2.2*CBC w/Diff Recent Labs 12/29/19021WB C 15.0* 26.5* 9.2HGB 10.5* 11.4* 11.4*HCT 31.2* 33.4* 35.1*PLT 265 207 241GRANS 74 * 90* 85*LYMPH 19 5* 9*EOS 0 0 0Coagulation No results for input(s): PTP, INR, APTT in the last 72 hours.No lab exists for component: INREXT, INREXTCardio No resul ts for input(s): TROIQ, CPK, CKMB in the last 72 hours.Last Lipid: No results found f or: CHOL, CHOLX, CHLST, CHOLV, HDL, HDLP, LDL,LDLC, DLDLP, TGLX, TRIGL, TRIGP, CHH D, CHHDXBNP No results for input(s): BNPP in the last 72 hours.Liver Enzymes Recent L abs ALB 2.0*Thyroid Studies No results found for: T4, T3U, TSH, TSHEXT, TSHEXTMicrobiology Recent Labs 123 [id number] NO GROWTH AFTER 16 HOUR S 10,000 to 50,000COLONIES/mLMIXED GRAM NEGATIVE FLORAIDENTIFICATION AND SUSCEPT IBILITY TO FOLLOW | NO GROWTH AFTER 16 HOURSImagingXr Chest Sngl VResult Date: 12/25/2018Portable chest x-ray. PRIOR EXAM: X-ray 12/18/2018 HISTORY: Pneumonia FINDIN GS:The heart is normal in size. The mediastinum and pulmonary vessels areunr emarkable. There is a small right pleural effusion.. A tube projected overthe left upper quadrant of the abdomen..IMPRESSION: Small right pleural effusion.Ct Chest Wo ContResult Date: 12/18/2018Referring Physician: KRYSTIAN MONAE Patient Name: LINA CARLIN THIS IS AFINAL REPORT FROM [facility] DATE OF SERVICE: 2018-12 01:22:40 IMAGES:555 EXAM: CT CHEST WO CONTRAST HISTORY: .. Right lower lobe at electasis..TECHNIQUE: Helical axial imaging from the thoracic inlet through the adre nalglands without contrast. Sagittal and coronal reconstructions were obtained.CO MPARISON: CT chest without contrast of 12/13/2018. FINDINGS: .. Evaluationremain s limited due to lack of IV contrast and patient positioning. The imagedthyroid g land remains atrophic. The aorta remains normal in caliber.Atherosclerotic calcif ications are again seen in the aorta. There is againcardiomediastinal shift towards the right. The heart remains normal in size andno pericardial effusion is noted. No obvious lymphadenopathy seen on thisunenhanced scan. No pneumothorax is noted. Since the prior exam there is beenincrease in bilateral pleural effusi ons with associated consolidations. Acalcified granuloma is again seen in th e right lower lobe. The imaged upperabdomen does not demonstrate any gross acute maggy nges. Osteopenia is again noted.Degenerative changes again seen in the imaged spine. Old healed right posteriorlower rib fractures are again seen.IMPRESSION: .. Limited s tudy demonstrating increase in bilateral pleuraleffusions with associated consoli dations with persistent cardiomediastinal shifttowards the right. Stable findings as noted above.. One or more of the followingdose reduction techniques were used: automated exposure control, adjustment ofthe mA and/or kV according to patient size, use of iterative reconstructivetechnique. THIS DOCUMENT H BEEN ELECTRONICALLY SIGNED Kamran Gillette MD 12/18/2018 04:49 GINA Verde Please call [facility] [phone] with questions. This report was electronically signed by: Tala MENDEZ 12/18/2018 04: 50 [facility] Chest Wo ContResult Date: 12/13/2018History: Respiratory difficulty . FINDINGS: CT scanning of the chest wasperformed helically from the lung api martine to the upper abdomen withoutintravenous contrast material. Sagittal and coronal reconstructed images aresubmitted. Scanning was performed utilizing dose lowering te chniques and iscompared to the prior study of 11/08/2018. The study is quite limited by patientpositioning. Evaluation of thoracic vascular structures is limited withoutin travenous contrast material does not reveal evidence of aneurysmal dilatationor defi nite CT evidence of dissection. Coronary artery calcification is seen.There is mi nimal calcification of the aortic arch. There is minimalcalcification of the descendin g thoracic aorta. There is no definite evidence ofany pathologically enlarged l ymph node in the visualized portions of themediastinum or axillae. Evaluation of pulmonary parenchymal structures revealssome atelectatic change in the right upper lo be. There is a small left pleuraleffusion as well as left basilar atelectatic change. There is some patchyopacity within the right middle lobe and right lower lobe which c ould also beinfiltrative in nature. Limited evaluation of upper abdominal structures isunremarkable. There is deviation of mediastinal structures to the right. Thi scould be as result of atelectatic change within the right lung. This has beenseen previously and is unchanged.IMPRESSION: Extremely limited study by patient posit ioning. Deviation ofmediastinal structures to the right as has been seen on prior stud ies. Leftpleural effusion. Bilateral infiltrates and atelectasis, greater on the rightthan the left.Cta Up Ext Lt W ContResult Date: 12/18/2018History: Arm cl audication. FINDINGS: CTA of the left upper extremity wasperformed helically from le ricky of the shoulder through the fingers after theintravenous administration of 119 cc of Isovue. Sagittal, coronal, and 3-Dreconstructed images obtained on an [employer] workstation are submitted. Noprior studies are available for comparison. Th e left subclavian artery is widelypatent. It is continuous with a widely patent left axillary artery. The axillaryartery is continuous with a widely patent left bra chial artery. The brachialartery bifurcates into a radial and ulnar artery just belo w the elbow. From thispoint distally streak artifact from patient positioning limits evaluation.However, the ulnar artery appears widely patent to the wrist. The radial a rteryis less well opacified but does appear patent to the wrist as well. Anintraosse ous artery also appears patent although it is poorly visualized aswell. The digital ar teries are not visualized on this study. There arebilateralpleural effusions note d both of which are moderate to large. Theeffusion on the left one is larger th an the right. Bibasilar atelectatic changethroughout much of the lower lobes is seen. There is a significant shift ofmediastinal structures to the right. T he liver is decreased in attenuationcompatible with fatty infiltr ation. The spleen is unremarkable. The adrenalglands are normal in appearance. The pancreas is grossly normal as is thegallbladder. A gastrostomy tube is no mikel in situ. The kidneys are unremarkable.There is a midline abdomina l wall hernia containing large and small bowel aswell as mesentery without eviden ce of obstruction. There is some presacralthickening and possibly some fr ee fluid noted. The patient is status post ORIFof the left hip with metallic hardwa re in situ.IMPRESSION: Patent left upper extremity arterial vessels although eval uationdistally is limited. Bilateral pleural effusions and bibasilar atelectasis.Shif t of mediastinal structures to the right.Ct Abd Pelv Wo ContResult Date: 12/21/2018His tory: ? Maturity of g-tube tract Technique: CT of the abdomen and pelvis wasperforme d from the dome of the diaphragm to the pubic symphysis without oral orintravenous con trast with dose lowering techniques. Sagittal and coronalreconstructions were performe d. Evaluation of solid abdominal viscera iscompromised by by the lack of intraven ous contrast. Evaluation of the bowelloops is compromised lack of oral contrast. All C T scans at this facility areperformed using dose optimization technique as appropria te to a performed exam,to include automated exposure control, adjustment of the mA a nd/or kV accordingto patient size (including appropriate matching first site-specific examinations), or use of iterative reconstruction technique. Comparison: CT scanof the chest performed 12/19/18 Findings: There is a small right pleural effusionw ith adjacent atelectasis. There is minimal left pleural fluid with adjacentatelecta sis. There is a pigtail catheter again identified on the left. The exactlocatio n of this catheter is difficult to ascertain benefits above the diaphragmto below the diaphragm. On today's study the tip appears to be located below thediaphragm. There is a small right pleural effusion with adjacent atelectasis.There is a G-tube i dentified in the stomach. The liver, gallbladder, spleen,pancreas, kidneys an d adrenal glands are unremarkable. No abdominal, pelvic oringuinal lymphadenop athy is identified. No free intraperitoneal fluid is noted.There is a ventral wall h ernia containing loops of what appear to be small bowelhowever are difficult to foll ow. There is mild perirectal stranding andpresacral edema correlate clinically. No dilated loops of bowel are identified.There is mild diverticulosis of the colon. The prostate, bladder and seminalvesicles appear unremarkable. The re are streak artifact obscuring portions ofthe pelvis due to a left hip ORIF. The re is subcutaneous gas identified alongthe right lower anterior pelvic wall.IMPRESS ION: There is a G-tube identified in the stomach. There is a tailcatheter identif ied on the left. The tip appears to be located below thediaphragm although is d ifficult to assess on CT. There is a small residualamount of pleural fluid as well as atelectasis along the left diaphragm. Thereis perirectal stranding and presacr al edema.Ct Thoracentesis Insrt Chest TubeResult Date: 12/19/2018History: Pleura l effusion. PROCEDURE: After being informed of the risks,benefits, and potential alt ernatives procedure informed consent was obtained.The patient was placed on the t able in the [id number] decubitus position.CT scanning was performed locat ion was chosen over the left flank. However, dueto the significant amount of patient motion and breathing motion was difficultto accurately assess a location for percuta neous paracentesis. Therefore, thiswas performed manually. After the chosen reg ion was prepped and draped in thenormal sterile fashion using maximum sterile ba rrier technique a lidocaineneedle was placed in the skin. This appeared to be in good position. Lidocainewas then used to anesthetize the skin and subcutaneous ti ssues in this location.Attempts were made to pass an 8 Congolese pigtail catheter throug h this location.However, patient continuous motion was significant as well as excess ivebreathing during the procedure. The catheter was placed at the same interspa ceas well as marked on the prior CT sequence however, due to the excessive patientmot ion the catheter was far more inferior within the chest that on the priorsequences. Th e catheter appeared to enter the hemiabdomen on the left from theleft chest. The cath eter was then pulled back to position where clear yellowfluid was aspirated. It was then sewn in position However, It appeared tomigrate forward and on the CT scanning appeared to again transgress thediaphragm. It was therefore pulled back to a point where only a clear fluid wasaspirated and respiratory variation was noted within t he tube. It was then sewnin position using 2-0 silk sutures. FINDINGS: Initial CT s debora revealed amoderate left pleural effusion. Attempts to nancy an adequate l ocation forpercutaneous thoracentesis were quite limited due to excessive patient m otionand breathing throughout the procedure. A location that appear to be a safelocat ion was marked. However, when the catheter was placed in this sameinterspace as wel l as marked the catheter appeared to be far more inferiorwithin the hemithorax than that seen previously. It appeared to enter the lefthemithorax inferiorly and transg ress the diaphragm with no evidence pathologicsequela. Therefore, it was pul led back into the pleural space for adequatedrainage. 130 cc of lightly bloo d-tinged fluid was aspirated. The catheter wasattached to a Pleur-evac and wall suc tion.IMPRESSION: Left-sided thoracentesis described above.Xr Chest PortResult Date : 12/29/2018History: leukocytosis Technique: Portable chest x-ray 12/29/2018 11:01 [facility] [place] omparison: 12/25/2018. FINDINGS: There is a right lower lobe infiltrate oratelectasi s which is increased since prior exam. There is poor inspiration.There is a small lef t pleural effusion. The exam is rotated. Evaluation of thecardiac silhouette is l imited by projection. The visualized osseous structuresappear unremarkable.IMPRESSION : There is a right lower lobe infiltrate or atelectasis which isincreased since prio r exam.Xr Chest PortResult Date: 12/18/2018Portable chest x-ray. PRIOR EXAM : 12/12/2018 and 11/25/2018 HISTORY: Pneumonia andpleural effusions FINDINGS: The heart is normal in size. The mediastinum andpulmonary vessels are unremarkable. T here is haziness within the lung basesbilaterally... The bony structures are intact.IMPRESSION: Haziness within the lung bases bilaterally that could repres entsmall pleural effusions and/or subsegmental atelectasis. Similar findin gs wereseen on prior exams.Xr Chest PortResult Date: 12/13/2018History: Respi ratory difficulty. FINDINGS: A frontal portable view of the chestis compared to the prior study from earlier in the same day. EKG leads overliethe chest. The car diac silhouette is normal in size. The left lung is clear. Theright lung is poorly e valuated due to significant rotation. The possibility ofright basilar infiltrate o r atelectatic change cannot be excluded. Mediastinaland hilar structures are poor ly evaluated as well.IMPRESSION: Study quite limited due to rotation. Opacity at the right lung basemay be infiltrative or atelectatic in nature.Xr Chest PortResul t Date: 12/12/2018History: Fever. Lethargy. FINDINGS: 2 frontal views of the chest a re compared tothe prior study of 11/25/2018. EKG leads overlie the chest. The cardiac silhouette is normal in size. There may be some streaky changes at the lungbases. E valuation of the lungs and mediastinal structures is quite limited dueto rotati on.IMPRESSION: Study quite limited by rotation. Basilar streaks noted.Duplex U pper Ext Venous LeftResult Date: 12/26/2018DUPLEX UPPER EXT VENOUS LEFT Cl inical Data: Arm swelling, DVT suspectedFindings: The visualized segmen ts of the left upper extremity venous circulationfrom the level of the subclav deondre vein to the brachial vein is compressible andshows normal phasic flow without an i ntraluminal thrombus. In addition, theinternal jugular vein and the basilic vein is also patent. Extremely limitedexam because the patient was unable to geo ate and this was done in a portablefashion.IMPRESSION: No evidence of deep vein thrombosis within the visualized left upperextremity venous circulation. Limited study.EKG:Results for orders placed or performed during the hospital encount er of 12/12/18EKG, 12 LEAD, INITIALResult Value Ref Range Ventricular Rate 82 BPM Atrial Rate 81 BPM P-R Interval 122 ms QRS Duration 132 ms Q-T Interval 436 ms QTC Calculation (Bezet) 509 ms Calculated P [place] 62 degrees Calculated R [place] 65 degrees Calculated T [place] 66 degrees Diagnosis Sinus rhythmIVCD, consider atypical RBBBArtifa ct limits interpretation, ST elevation noted avF but other inferiorleads not able to be evaluatedConfirmed by Joaquin Carrasco MD ([id number]) on 12/17/2018 11:57:07 AMEKG 9: NSR 82/min, atypical RBBB Echo 11/14/18: limited, LVEF 55-60%, MVP posterior leaf let CXR 12/29/18: small left pleural effusion, RLL infitrateTelemetry: normal sinus rhy thmAssessmentProblem List as of 12/30/2018 Date Reviewed: 12/29/2018 Codes Cla ss Noted - Resolved Sepsis due to undetermined organism (HCC) ICD-10-CM: A 41.9ICD-9-CM: 038.9 12/12/2018 - Present COPD (chronic obstructive pulmonary disease) ([facility]) ICD-10-CM: J44.9ICD-9-CM: 496 11/08/2018 - Present Acute respiratory di stress ICD-10-CM: R06.03ICD-9-CM: 518.82 11/08/2018 - Present Pneumonia ICD-10-CM: J18.9ICD-9-CM: 486 11/08/2018 - Present COPD exacerbation ([facility]) ICD-10-CM: J44.1ICD-9 -CM: 491.21 11/08/2018 - Present Paraesophageal hiatal hernia ICD-10-CM: K44.9ICD-9-CM: 553.3 09/26/2015 - PresentSEPSISPNEUMONIACOPDPLEURAL EFFUSI ONFLUID OVERLOADHYPERPARATHYROIDMENTALLY CHALLENGEDSEIZURE DISORDERPlan:Lasix prn F/u EKG not donePulmonary/IDFor J tube through GT per Christina Cross mber 2018 Name Value Range Interpretation Code Description Data Harriett rce(s) Supporting Document(s ) ID Date Data Source [id number] 12/30/2018 12:10:49 PM EDT [facility] Name Value Range Interpretation Description Data Sup porting Code Source(s) Document(s ) Glucose 113 MG/DL 65-110 Above high normal [facility] - Good [Mass/volume] [facility] in Blood by Hospital Automated test strip ID Date Data Source [id number] 12/30/2018 11:13:31 AM EDT [facility] ID Progress Note12/30/2018Patient is non verbal,unable to provide any historyPt is afebrileWBC down trending to 15K from 26 K( steriod was discontinued yesterday)Awaiting EGDCXr with RLL infil trate or atelectasisObjective:Vitals:Patient Vitals for the past 24 hrs: BP Temp Puls e Resp SpO2 Vvxaht86/17/19 0719 100/65 98.2 F (36.8 C) 70 20 96 % -12/30/18 0422 - - - - - 51.8 kg (114 lb 4.8 oz)12/30/18 0351 106/65 97 F (36.1 C) 64 20 95 % -12/30 0009 119/56 97.5 F (36.4 C) 80 20 100 % -12/29/182015 - - - - 98 % -12/29/18 19 40 107/59 97.2 F (36.2 C) 88 20 98 % -12/29/18 1523 109/62 98.6 F (37 C) (! ) 101 20 92 % -12/29/18 1114 119/56 97.2 F (36.2 C) 77 20 96 % -Tmax: Temp (24hrs ), Av.6 F (36.4 C), Min:97 F (36.1 C), Max:98.6 F (37 C)Physical Exam:Gene ral: Awake non verbal, cooperative, no distressMouth/Throat: Ulcers no upper an d lower lips.Neck: Supple, symmetrical, trachea midline, no adenopathyLungs: D ecrease breath sounds at bases.Heart: Regular rate and rhythm, S1, S2 normal, no murmurAbdomen: Soft, non-tender. Bowel sounds normal. No masses, No organomega ly.+feeding tubeBack: No CVA tenderness.Extremities: Extremities norm al, atraumatic, no cyanosis or edema.Pulses: 2+ and symmetric all extremities.Skin: S kin color, texture, turgor normal. No rashes or lesionsCurrent Facility-Administered MedicationsMedication Dose Route Frequency albuterol-ipratropium (DUO-NEB) 2.5 MG-0 .5 MG/3 ML 3 mL Nebulization Q6HWA RT valACYclovir (VALTREX) tablet 1,000 mg 1,000 mg Per G Tube Q12H haloperidol lactate (HALDOL) injection 2 mg 2 mg IntraVENou s Q6H PRN acetaminophen (TYLENOL) solution 650 mg 650 mg Per NG tube Q4H PRN albu terol-ipratropium (DUO-NEB) 2.5 MG-0.5 MG/3 ML 3 mL Nebulization Q4H PRN potassium , sodium phosphates (NEUTRA-PHOS) packet 1 Packet 1 Packet Oral QID acetylcystein e (MUCOMYST) 100 mg/mL (10 %) nebulizer solution 200 mg 2 mLNebulization BID RT bacitracin 500 unit/gram packet 1 Packet 1 Packet Topical BID budesonide (PULMICOR T) 500 mcg/2 ml nebulizer suspension 500 mcg NebulizationBID RT lamoTRIgine (LaMICta l) tablet 50 mg 50 mg Per G Tube BID valproic acid (as sodium salt) (DEPAKENE ) 250 mg/5 mL (5 mL) oral solution 750mg 750 mg Per G Tube BID cinacalcet (SENSIPAR) tablet 60 mg 60 mg Oral DAILY pantoprazole (PROTONIX) granules for oral suspension 40 mg 40 mg Per G TubeACB heparin (porcine) injection 5,000 Units 5,000 Units SubCU TAneous Q12H sodium chloride (NS) flush 5-10 mL 5-10 mL IntraVENous PRNLabs:Recent L abs 12/29/1902WBC 15.0* 26.5* 9.2HGB 10.5* 11.4* 11.4*PLT 265 207 241BUN 17 13 19*CREA 0.33* 0.46* 0.45*Cultures:Lab ResultsCom ponent Value Date/Time Culture result: NO GROWTH AFTER 16 HOURS 12/29/2018 11:23 A M Culture result: NO GROWTH AFTER 16 HOURS 12/29/2018 11:00 AM Culture result: 11:00 AM 10,000 to 50,000COLONIES/mLMIXED GRAM NEGATIVE JHON RAIDENTIFICATION AND SUSCEPTIBILITY TO FOLLOWRadiology:No results found.Assessm ent: Sepsis. Aspiration pneumonia. Acute respiratory failure with hypoxia and hyp ercapnia. Acute COPD exacerbation. Dysphagia. Atelectasis. Pleural effusi on. Leukocytosis HSV stomatitis Plan:1. Continue Valtrex via peg.2. Follow bcx a nd MARICEL Becerraeptember [id number] AM Name Value Range Interpretation Code Description Data Harriett rce(s) Supporting Document(s ) ID Date Data Source [id number] 12/30/2018 10:40:16 AM EDT [facility] Progress NoteNAME: Evelio JohnsoninDOB: 1950MRN: [id number]:nonverbalObjective:WBC down; tolerating GT feeds but cleared for EGD with JT through GT bypulmonaryVITALS :Last 24hrs VS reviewed since prior progress note. Most recent are:Visit VitalsBP 100 /65 (BP 1 Location: Left arm, BP Patient Position: At rest)Pulse 70Temp 98.2 F ( 36.8 C)Resp 20Ht 5' 2" (1.575 m)Wt 51.8 kg (114 lb 4.8 oz)SpO2 96%BMI 20.91 kg/m In take/Output Summary (Last 24 hours) at 12/30/2018 1038Last data filed at 12/31/19 19 0924Gross per 24 hourIntake 1625 mlOutput 3100 mlNet -1475 mlPHYSICAL EXAM:General : Alert, in no acute distressHEENT: Anicteric sclerae.Lungs: CTA Bilaterall y.Heart: Regular rhythm,Abdomen: Soft, NTExtremities: No c/c/eLab Data Reviewed :Recent Labs 12/29/1902WBC 15.0* 26.5*HGB 10.5* 11.4*HCT 31.2* 33.4 *PLT 265 207Recent Labs 12/29/1902NA 141 133*K 3.9 4.1CL 99 95 *CO2 38* 35*BUN 17 13CREA 0.33* 0.46*GLU 69* 146*PHOS 3.2 2.4*CA 9.3 9.9Recent Labs 12/29/1902ALB 2.0* 2.3* Pati ent Active Problem ListDiagnosis Code Parae sophageal hiatal hernia K44.9 COPD (chronic obstructive pulmonary disease) ([facility]) J44 .9 Acute respiratory distress R06.03 Pneumonia J18.9 COPD exacerbation ([facility]) J44.1 Sepsis due to undetermined organism ([facility]) A41.9Assessment:Active Problems: Pneumonia (11/08/2018) Sepsis due to undetermined organism ([facility]) (12/12/2018)@ Plan: Discussed procedure with daughter and son-nicole prieto who is MD, they have agreed to procedure with anesthesia in the amSigned By: Darryl Harrison MD 12/30/2018 10:38 AM Name Value Range Interpretation Code Description Data Harriett rce(s) Supporting Document(s ) ID Date Data Source [id number] 12/30/2018 08:49:52 AM EDT [facility] Progress NotePatient: Evelio Carlin Sex: male DOA: 12/12/2018Date of : 1950 Age: 68 y.o. :[id number]:Reyes Carlin is 68 y.o. male. who presented with lethargy,cough, fever,hypoxia, meta bolic acidosis and hypothermia from his snf.Pt with Leukocytosis up to 27,000 to dayc/w 9,000 on yesterdayAlso, RN reporting low grade fever overnight.Septic work up was orderedChest xr ordered showing rll infiltrate or atelectasis which is incre ased sinceprior exam.D/W Dr Monae the cxr reviewed and has minimal change in rll. DiscoidAtelectasis RLLLeukocytosis due to SolumedrolTo D/C solumedrol and give las ix 20 mg iv today.He has medical history of Dysphagia with recent admission s/p surg ical pegplacement on 11/17/18, severe intellectual disability, Chronic respir atoryfailure, hyperparathyroid unspecified, personal h/o pulmonary embolus, anxietyd isorder, kyphosis and schizophreniaPt was admitted with encounter diag of Acute Re spiratory failure withhypercapnia and hypoxia, metabolic acidosis, sepsis poa, Aspiration pneumonia,Acute COPD exacerbation and dysphagia s/p surgical placement of peg. Also diagof Alelectasis, Pleural effusion s/p left chest tube,fluid overl oad, mentallychallenged, seizure disorder and hyperparathyroid.Pt is nonverbal and maria isabel ble to provide a history.During the interval ; gi requested to see the pt for possibl e conversionof Peg to J tube in order to make aspirations less likely, less sever e.CTA of the LUE on 12/18/18 showed Patent LUE arterial vessels , althoughevauation dis tally is limited. B/L peural effusions and bibasilar atelectasis.shirft of mediasti nal structures to the rt. Pt s/p CT guided left thoracentesis on 12/19/18. On gi f/u pt was scheduled for endo placement of a J tube via PEG. Howeverprocedure was latrice eduled pending improvement in pt respiratory status.Repeat CT Abd /Pelvis dated 9 showing G-tube in the stomach. Pig tail cathid on the left. The tip appears to b e located below the diaphragm although isdifficult to assess on Ct. There is lemus bcutaneous gas id along the lower anteriorpelvic wall. There is perirectal stranding and presacral edema.On 12/24/18 pt was determined not cleared for PEG place metn due to AcuteRespiratory Distress. Pt was restarted on IV solumedrol. He was cont on IVZosyn.CXR dated 12/25 showing small right pleural effusion. Pt wearing Mitts restraints to prevent removal of nasal canula S/P removal today of Left Pig ta il catheterThe pt is awake and alert wearing O2 NC. 3.5 LPM with O2 SAT 95 %.GI noted today. Peg conversion to J tube defer again today. Will have to d/wanesthesia if att empt is still desired and resp status without improvement. Pt resting comfortable, wea ring O2 NC 4L with O2 SAT 96 %. 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 Wearing Mittsfor restraintsHead: Normocephalic, without obvious abnormality, atraumatic. Eyes: Conjunctivae clear, anicteric sclerae. Pupils are equalThroat: Lip s, mucosa, and tongue normal. No ThrushNeck: Supple, symmetrical, no adenopathy, n o carotid bruit and no JVD.Back: Symmetric, No CVA tenderness.Lungs: C lear to auscultation bilaterally. No Wheezing or Rhonchi. No rales.Chest wall : No tenderness or deformity. No Accessory muscle use.Heart: Regular rate and rhy thm, no murmur, or rubAbdomen: + abdominal binder, + peg, soft, non-tender. Not dis tended. Bowelsounds normal. No massesExtremities: Extremities normal, a traumatic, No cyanosis. No edema.Skin: Texture, turgor normal. No rashes or les ions. Not JaundicedLymph nodes: Cervical, supraclavicular normal.Psych: Not anxio us or agitated.Neurologic: EOMs intact. No facial asymmetry. No aphasia or slurred speech.Nonverbal , generalized weakness, Alert and awake.Intake and Output:Curren t Shift: 12/29 700 - 12/290In: 200Out: 1300 [Urine:1300]Last three shifts: 1900 - 12/29 0700In: 1200Out: 1300 [Urine:1300]Lab/Data Reviewed:Recent Day s:Recent Labs 12/28/1902WBC 26.5* 9.2 8.5HGB 11.4* 1 1.4* 11.7*HCT 33.4* 35.1* 36.6*PLT 207 241 229Recent Labs 12/28/1902 1 NA 133* 137 136K 4.1 4.6 4.5CL 95* 96* 97*CO2 35* 34* 36*GLU 146* 100 2 00*BUN 13 19* 19*CREA 0.46* 0.45* 0.53*CA 9.9 9.5 9.1MG 1.7 1.9 1.8PHOS 2.4* 2.5 2.3*A LB 2.3* 2.2* 2.1*No results for input(s): PH, PCO2, PO2, HCO3, FIO2 in the last 72 tammy rs.Xr Chest Sngl VResult Date: 12/25/2018Portable chest x-ray. PRIOR EXA M: X-ray 12/18/2018 HISTORY: Pneumonia FINDINGS:The heart is normal in size. Th e mediastinum and pulmonary vessels areunremarkable. There is a small right pleural effusion.. A tube projected overthe left upper quadrant of the abdomen..IMPR ESSION: Small right pleural effusion.Ct Chest Wo ContResult Date: 12/18/2018Referring Ph ysician: KRYSTIAN MONAE Patient Name: EVELIO CARLIN THIS IS AFINAL REPORT FROM [facility] DATE OF SERVICE: 2018-12-18 01:22:40 IMAGES:555 EXAM: CT CHEST WO CO NTRAST HISTORY: .. Right lower lobe atelectasis..TECHNIQUE: Helical axial im aging from the thoracic inlet through the adrenalglands without contrast. Sagittal and coronal reconstructions were obtained.COMPARISON: CT chest without co ntrast of 12/13/2018. FINDINGS: .. Evaluationremains limited due to lack of IV contrast and patient positioning. The imagedthyroid gland remains atrophic. Th e aorta remains normal in caliber.Atherosclerotic calcifications a re again seen in the aorta. There is againcardiomediastinal shift towards the right. The heart remains normal in size andno pericardial effusion is noted. No obvious lymphadenopathy seen on thisunenhanced scan. No pneumothorax is noted. Since the prior exam there is beenincrease in bilateral pleural effusi ons with associated consolidations. Acalcified granuloma is again seen in th e right lower lobe. The imaged upperabdomen does not demonstrate any gross acute maggy nges. Osteopenia is again noted.Degenerative changes again seen in the imaged spine. Old healed right posteriorlower rib fractures are again seen.IMPRESSION: .. Limited s tudy demonstrating increase in bilateral pleuraleffusions with associated consoli dations with persistent cardiomediastinal shifttowards the right. Stable findings as noted above.. One or more of the followingdose reduction techniques were used: automated exposure control, adjustment ofthe mA and/or kV according to patient size, use of iterative reconstructivetechnique. THIS DOCUMENT H BEEN ELECTRONICALLY SIGNED Kamran Gillette MD 12/18/2018 04:49 GINA Verde Please call [facility] [employer] Consultant [phone] with questions. This report was electronically signed by: Tala MENDEZ 12/18/2018 04: 50 [facility] Chest Wo ContResult Date: 12/13/2018History: Respiratory difficulty . FINDINGS: CT scanning of the chest wasperformed helically from the lung api martine to the upper abdomen withoutintravenous contrast material. Sagittal and coronal reconstructed images aresubmitted. Scanning was performed utilizing dose lowering te chniques and iscompared to the prior study of 11/08/2018. The study is quite limited by patientpositioning. Evaluation of thoracic vascular structures is limited withoutin travenous contrast material does not reveal evidence of aneurysmal dilatationor defi nite CT evidence of dissection. Coronary artery calcification is seen.There is mi nimal calcification of the aortic arch. There is minimalcalcification of the descendin g thoracic aorta. There is no definite evidence ofany pathologically enlarged l ymph node in the visualized portions of themediastinum or axillae. Evaluation of pulmonary parenchymal structures revealssome atelectatic change in the right upper lo be. There is a small left pleuraleffusion as well as left basilar atelectatic change. There is some patchyopacity within the right middle lobe and right lower lobe which c ould also beinfiltrative in nature. Limited evaluation of upper abdominal structures isunremarkable. There is deviation of mediastinal structures to the right. Thi scould be as result of atelectatic change within the right lung. This has beenseen previously and is unchanged.IMPRESSION: Extremely limited study by patient posit ioning. Deviation ofmediastinal structures to the right as has been seen on prior stud ies. Leftpleural effusion. Bilateral infiltrates and atelectasis, greater on the rightthan the left.Cta Up Ext Lt W ContResult Date: 12/18/2018History: Arm cl audication. FINDINGS: CTA of the left upper extremity wasperformed helically from le ricky of the shoulder through the fingers after theintravenous administration of 119 cc of Isovue. Sagittal, coronal, and 3-Dreconstructed images obtained on an Real[employer] workstation are submitted. Noprior studies are available for comparison. Th e left subclavian artery is widelypatent. It is continuous with a widely patent left axillary artery. The axillaryartery is continuous with a widely patent left bra chial artery. The brachialartery bifurcates into a radial and ulnar artery just belo w the elbow. From thispoint distally streak artifact from patient positioning limits evaluation.However, the ulnar artery appears widely patent to the wrist. The radial a rteryis less well opacified but does appear patent to the wrist as well. Anintraosse ous artery also appears patent although it is poorly visualized aswell. The digital ar teries are not visualized on this study. There arebilateralpleural effusions note d both of which are moderate to large. Theeffusion on the left one is larger th an the right. Bibasilar atelectatic changethroughout much of the lower lobes is seen. There is a significant shift ofmediastinal structures to the right. T he liver is decreased in attenuationcompatible with fatty infiltr ation. The spleen is unremarkable. The adrenalglands are normal in appearance. The pancreas is grossly normal as is thegallbladder. A gastrostomy tube is no mikel in situ. The kidneys are unremarkable.There is a midline abdomina l wall hernia containing large and small bowel aswell as mesentery without eviden ce of obstruction. There is some presacralthickening and possibly some fr ee fluid noted. The patient is status post ORIFof the left hip with metallic hardwa re in situ.IMPRESSION: Patent left upper extremity arterial vessels although eval uationdistally is limited. Bilateral pleural effusions and bibasilar atelectasis.Shif t of mediastinal structures to the right.Ct Abd Pelv Wo ContResult Date: 12/21/2018His tory: ? Maturity of g-tube tract Technique: CT of the abdomen and pelvis wasperforme d from the dome of the diaphragm to the pubic symphysis without oral orintravenous con trast with dose lowering techniques. Sagittal and coronalreconstructions were performe d. Evaluation of solid abdominal viscera iscompromised by by the lack of intraven ous contrast. Evaluation of the bowelloops is compromised lack of oral contrast. All C T scans at this facility areperformed using dose optimization technique as appropria te to a performed exam,to include automated exposure control, adjustment of the mA a nd/or kV accordingto patient size (including appropriate matching first site-specific examinations), or use of iterative reconstruction technique. Comparison: CT scanof the chest performed 12/19/18 Findings: There is a small right pleural effusionw ith adjacent atelectasis. There is minimal left pleural fluid with adjacentatelecta sis. There is a pigtail catheter again identified on the left. The exactlocatio n of this catheter is difficult to ascertain benefits above the diaphragmto below the diaphragm. On today's study the tip appears to be located below thediaphragm. There is a small right pleural effusion with adjacent atelectasis.There is a G-tube i dentified in the stomach. The liver, gallbladder, spleen,pancreas, kidneys an d adrenal glands are unremarkable. No abdominal, pelvic oringuinal lymphadenop athy is identified. No free intraperitoneal fluid is noted.There is a ventral wall h ernia containing loops of what appear to be small bowelhowever are difficult to foll ow. There is mild perirectal stranding andpresacral edema correlate clinically. No dilated loops of bowel are identified.There is mild diverticulosis of the colon. The prostate, bladder and seminalvesicles appear unremarkable. The re are streak artifact obscuring portions ofthe pelvis due to a left hip ORIF. The re is subcutaneous gas identified alongthe right lower anterior pelvic wall.IMPRESS ION: There is a G-tube identified in the stomach. There is a tailcatheter identif ied on the left. The tip appears to be located below thediaphragm although is d ifficult to assess on CT. There is a small residualamount of pleural fluid as well as atelectasis along the left diaphragm. Thereis perirectal stranding and presacr al edema.Ct Thoracentesis Insrt Chest TubeResult Date: 12/19/2018History: Pleura l effusion. PROCEDURE: After being informed of the risks,benefits, and potential alt ernatives procedure informed consent was obtained.The patient was placed on the t able in the oplas-[id number] decubitus position.CT scanning was performed locat ion was chosen over the left flank. However, dueto the significant amount of patient motion and breathing motion was difficultto accurately assess a location for percuta neous paracentesis. Therefore, thiswas performed manually. After the chosen reg ion was prepped and draped in thenormal sterile fashion using maximum sterile ba rrier technique a lidocaineneedle was placed in the skin. This appeared to be in good position. Lidocainewas then used to anesthetize the skin and subcutaneous ti ssues in this location.Attempts were made to pass an 8 Congolese pigtail catheter throug h this location.However, patient continuous motion was significant as well as excess ivebreathing during the procedure. The catheter was placed at the same interspa ceas well as marked on the prior CT sequence however, due to the excessive patientmot ion the catheter was far more inferior within the chest that on the priorsequences. Th e catheter appeared to enter the hemiabdomen on the left from theleft chest. The cath eter was then pulled back to position where clear yellowfluid was aspirated. It was then sewn in position However, It appeared tomigrate forward and on the CT scanning appeared to again transgress thediaphragm. It was therefore pulled back to a point where only a clear fluid wasaspirated and respiratory variation was noted within t he tube. It was then sewnin position using 2-0 silk sutures. FINDINGS: Initial CT s debora revealed amoderate left pleural effusion. Attempts to nancy an adequate l ocation forpercutaneous thoracentesis were quite limited due to excessive patient m otionand breathing throughout the procedure. A location that appear to be a safelocat ion was marked. However, when the catheter was placed in this sameinterspace as wel l as marked the catheter appeared to be far more inferiorwithin the hemithorax than that seen previously. It appeared to enter the lefthemithorax inferiorly and transg ress the diaphragm with no evidence pathologicsequela. Therefore, it was pul led back into the pleural space for adequatedrainage. 130 cc of lightly bloo d-tinged fluid was aspirated. The catheter wasattached to a Pleur-evac and wall suc tion.IMPRESSION: Left-sided thoracentesis described above.Xr Chest PortResult Date : 12/29/2018History: leukocytosis Technique: Portable chest x-ray 12/29/2018 11:01 [facility] [place] omparison: 12/25/2018. FINDINGS: There is a right lower lobe infiltrate oratelectasi s which is increased since prior exam. There is poor inspiration.There is a small lef t pleural effusion. The exam is rotated. Evaluation of thecardiac silhouette is l imited by projection. The visualized osseous structuresappear unremarkable.IMPRESSION : There is a right lower lobe infiltrate or atelectasis which isincreased since prio r exam.Xr Chest PortResult Date: 12/18/2018Portable chest x-ray. PRIOR EXAM : 12/12/2018 and 11/25/2018 HISTORY: Pneumonia andpleural effusions FINDINGS: The heart is normal in size. The mediastinum andpulmonary vessels are unremarkable. T here is haziness within the lung basesbilaterally... The bony structures are intact.IMPRESSION: Haziness within the lung bases bilaterally that could repres entsmall pleural effusions and/or subsegmental atelectasis. Similar findin gs wereseen on prior exams.Xr Chest PortResult Date: 12/13/2018History: Respi ratory difficulty. FINDINGS: A frontal portable view of the chestis compared to the prior study from earlier in the same day. EKG leads overliethe chest. The car diac silhouette is normal in size. The left lung is clear. Theright lung is poorly e valuated due to significant rotation. The possibility ofright basilar infiltrate o r atelectatic change cannot be excluded. Mediastinaland hilar structures are poor ly evaluated as well.IMPRESSION: Study quite limited due to rotation. Opacity at the right lung basemay be infiltrative or atelectatic in nature.Xr Chest PortResul t Date: 12/12/2018History: Fever. Lethargy. FINDINGS: 2 frontal views of the chest a re compared tothe prior study of 11/25/2018. EKG leads overlie the chest. The cardiac silhouette is normal in size. There may be some streaky changes at the lungbases. E valuation of the lungs and mediastinal structures is quite limited dueto rotati on.IMPRESSION: Study quite limited by rotation. Basilar streaks noted.Duplex U pper Ext Venous LeftResult Date: 12/26/2018DUPLEX UPPER EXT VENOUS LEFT Cl inical Data: Arm swelling, DVT suspectedFindings: The visualized segmen ts of the left upper extremity venous circulationfrom the level of the subclav deondre vein to the brachial vein is compressible andshows normal phasic flow without an i ntraluminal thrombus. In addition, theinternal jugular vein and the basilic vein is also patent. Extremely limitedexam because the patient was unable to geo ate and this was done in a portablefashion.IMPRESSION: No evidence of deep vein thrombosis within the visualized left upperextremity venous circulation. Limited study.Medications reviewedCurrent Facility-Administered MedicationsMedicat ion Dose Route Frequency valACYclovir (VALTREX) tablet 1,000 mg 1,000 mg Per G Tube Q12H haloperidol lactate (HALDOL) injection 2 mg 2 mg IntraVENous Q6H PRN acetaminophen (TYLENOL) solution 650 mg 650 mg Per NG tube Q4H PRN albuterol-ip ratropium (DUO-NEB) 2.5 MG-0.5 MG/3 ML 3 mL Nebulization Q4H PRN potassium, sodium phosphates (NEUTRA-PHOS) packet 1 Packet 1 Packet Oral QID acetylcysteine (MUCOMYS T) 100 mg/mL (10 %) nebulizer solution 200 mg 2 mLNebulization BID RT albuterol-ipra tropium (DUO-NEB) 2.5 MG-0.5 MG/3 ML 3 mL Nebulization Q6H RT bacitracin 500 unit /gram packet 1 Packet 1 Packet Topical BID budesonide (PULMICORT) 500 mcg/2 ml nebu lizer suspension 500 mcg NebulizationBID RT lamoTRIgine (LaMICtal) tablet 50 mg 50 mg Per G Tube BID valproic acid (as sodium salt) (DEPAKENE) 250 mg/5 mL (5 mL) oral solution 750mg 750 mg Per G Tube BID cinacalcet (SENSIPAR) tablet 60 mg 60 m g Oral DAILY pantoprazole (PROTONIX) granules for oral suspension 40 mg 40 m g Per G TubeACB heparin (porcine) injection 5,000 Units 5,000 Units SubCUTAneous Q1 2H sodium chloride (NS) flush 5-10 mL 5-10 mL IntraVENous PRNAssessment/Plan:Hospit al Problems Date Reviewed: 12/29/2018 Codes Class Noted POA Sepsis due to unde termined organism (HCC) ICD-10-CM: A41.9ICD-9-CM: 038.9 12/12/2018 Unknown Pneumonia ICD-10-CM: J18.9ICD-9-CM: 486 11/08/2018 UnknownAssessment:Sepsis - poa Aspiration PneumoniaAcute respiratory failure with Hypoxia andHypercapniaAcute COPD ex acerbationDysphagia s/p surgical placed pegPleural EffusionFluid overloadLeukocy tosis likely steroid inducedMentally challengedSeizureHyperparathyroidPlan: IV zosyn DCO2 NC/ Nightly BIPAP Pulmonary follow up nutrition f/u culturesnebuliz ersGive Lasix 20 mg iv x 1 dose as ordered Off steroids S/P removal of Left pig lori l catheterD/w Dr Monae cont officer captain medications D/W the pmo lead and pt 's RN sugg est a trial of bolusTF to reduce risk of aspiration.from the continuous TFHeplock America Roweptember 2018Time: 3:30 PM Name Value Range Interpretation Code Description Data Harriett rce(s) Supporting Document(s ) ID Date Data Source [id number] 12/30/2018 08:30:30 AM EDT [facility] Progress NoteEvelio Carlin68 y.o.Adm it Date: 12/12/2018Subjective:Patient awakeMore alertNo distressReview of syst ems not obtained due to patient factors.Objective:Visit VitalsBP 100/65 (BP 1 Location: Left arm, BP Patient Position: At rest)Pulse 70Temp 98.2 F ( 36.8 C)Resp 20Ht 5' 2" (1.575 m)Wt 51.8 kg (114 lb 4.8 oz)SpO2 96%BMI 20.91 kg/m In take/Output Summary (Last 24 hours) at 12/30/2018 0829Last data filed at 12/31/19 19 0611Gross per 24 hourIntake 1435 mlOutput 3100 mlNet -1665 mlCurrent Facility-Admi nistered MedicationsMedication Dose Route Frequency Provider Last Rate Last Dose albuterol-ipratropium (DUO-NEB) 2.5 MG-0.5 MG/3 ML 3 mL Nebulization Q6HWA RTSandh Krystian rodríguez MD 3 mL at 12/30/18 0756 valACYclovir (VALTREX) tablet 1,000 mg 1,000 mg Per G Tube Q12H Natasha Dudley MD 1,000 mg at 12/29/18 2132 haloperidol l actate (HALDOL) injection 2 mg 2 mg IntraVENous Q6H PRN Stella Hamilton MD 2 mg at 12/29/18 2145 acetaminophen (TYLENOL) solution 650 mg 650 mg Per NG tube Q4H PRN Mili Hills DO 650 mg at 12/29/18 2145 albuterol-ipratropium (DU O-NEB) 2.5 MG-0.5 MG/3 ML 3 mL Nebulization Q4H PRMili Murphy DO 3 mL at 07/01 0417 potassium, sodium phosphates (NEUTRA-PHOS) packet 1 Packet 1 Packet Oral Krystian Grey MD 1 Packet at 12/29/18 213 acetylcysteine (MUCOMYST) 100 mg/mL (10 %) nebulizer solution 200 mg 2 mLNebulization BID RT Mili Hills DO 200 mg at 12/30/18 0756 bacitracin 500 unit/gram packet 1 Packet 1 Packet Topi inez BID Mili Hills DO 1 Packet at 12/29/18 2132 budesonide (PULMICORT) 50 0 mcg/2 ml nebulizer suspension 500 mcg NebulizationBID RT Van Plunkett MD 500 mcg at 12/30/18 0824 lamoTRIgine (LaMICtal) tablet 50 mg 50 mg Per G Tub e BID Van Plunkett MD50 mg at 12/29/18 213 valproic acid (as sodium salt) (DE PAKENE) 250 mg/5 mL (5 mL) oral solution 750mg 750 mg Per G Tube BID Christine Plunkett MD 750 mg at 12/29/182130 cinacalcet (SENSIPAR) tablet 60 mg 60 mg Oral KYLEIGH Y Van Plunkett MD 60mg at 12/29/18 0919 pantoprazole (PROTONIX) granules for ora l suspension 40 mg 40 mg Per G TubeACB Van Plunkett MD 40 mg at 12/29/18 0920 h eparin (porcine) injection 5,000 Units 5,000 Units SubCUTAneous Q12H Van Plunkett M D 5,000 Units at 12/29/18 2331 sodium chloride (NS) flush 5-10 mL 5-10 mL Int raVENous PRN Van Plunkett MDPhysical Exam:Physical Exam:General: Awake, No d istressNeck: SuppleLungs: Clear to auscultationHeart: S1, W2Ntdcbda: So ft, non-tender. Bowel sounds normal. No masses, No organomegaly.Extremities: Ed emaData Review:CBC w/DiffRecent Labs 12/29/1902WB C 15.0* 26.5* 9.2RBC 3.13* 3.37* 3.44*HGB 10.5* 11.4* 11.4*HCT 31.2* 33.4* 35.1*MC V 99.7* 99.1* 102.0*MCH 33.5 33.8 33.1MCHC 33.7 34.1 32.5RDW 16.9* 16.8* 16.6* Rece nt Labs 12/29/1902MONOS 7 5 6EOS 0 0 0BASOS 0 0 0RDW 16.9* 16.8* 16.6* Lab ResultsComponent Value Date/Time PLATELET 265 12/30/2018 03:06 AMComprehensive Metabolic ProfileRecent Labs 12/29/190212/28/18 0321NA 141 133* 137K 3.9 4.1 4.6CL 99 95* 96*CO2 38* 35* 34*BUN 17 13 19*CREA 0.33 * 0.46* 0.45* Recent Labs 12/29/19021CA 9.3 9.9 9.5P HOS 3.2 2.4* 2.5ALB 2.0* 2.3* 2.2*X-RAY (Last 24 Hours)Xr Chest PortResult Date: 2018History: leukocytosis Technique: Portable chest x-ray 12/29/2018 11:01 AMComparison : 12/25/2018. FINDINGS: There is a right lower lobe infiltrate oratelectasis which is i ncreased since prior exam. There is poor inspiration.There is a small left pleura l effusion. The exam is rotated. Evaluation of thecardiac silhouette is limited by p rojection. The visualized osseous structuresappear unremarkable.IMPRESSION : There is a right lower lobe infiltrate or atelectasis which isincreased since prio r exam.IMPRESSION:Patient Active Problem ListDiagnosis Code Paraesophageal hiata l hernia K44.9 COPD (chronic obstructive pulmonary disease) ([facility]) J44.9 Acute re spiratory distress R06.03 Pneumonia J18.9 COPD exacerbation ([facility]) J44.1 Sepsis du e to undetermined organism ([facility]) A41.9PLAN: Monitor labs Monitor bun/creat Further recommendations will be based on the patient's response to recommendedtreatme nt and results of the investigation ordered.Oralia Frankel MD12/30/20189:38 AM Name Value Range Interpretation Code Description Data Harriett rce(s) Supporting Document(s ) ID Date Data Source [id number] 12/30/2018 08:28:41 AM EDT [facility] Progress NoteEmanuel Dslxinnmn70 y.o.Adm it Date: 12/12/2018Subjective:Patient awakeMore alertNo distressReview of syst ems not obtained due to patient factors.Objective:Visit VitalsBP 100/65 (BP 1 Location: Left arm, BP Patient Position: At rest)Pulse 70Temp 98.2 F ( 36.8 C)Resp 20Ht 5' 2" (1.575 m)Wt 51.8 kg (114 lb 4.8 oz)SpO2 96%BMI 20.91 kg/m In take/Output Summary (Last 24 hours) at 12/30/2018 0828Last data filed at 12/31/19 0611Gross per 24 hourIntake 1435 mlOutput 3100 mlNet -1665 mlCurrent Facility-Admi nistered MedicationsMedication Dose Route Frequency Provider Last Rate Last Dose albuterol-ipratropium (DUO-NEB) 2.5 MG-0.5 MG/3 ML 3 mL Nebulization Q6HWA RTSKrystian maldonado MD 3 mL at 12/30/18 0756 valACYclovir (VALTREX) tablet 1,000 mg 1,000 mg Per G Tube Q12H Natasha Dudley MD 1,000 mg at 12/29/18 213 haloperidol l actate (HALDOL) injection 2 mg 2 mg IntraVENous Q6H PRN Stella Hamilton MD 2 mg at 12/29/18 214 acetaminophen (TYLENOL) solution 650 mg 650 mg Per NG tube Q4H PRN Mili Hills DO 650 mg at 12/29/18 214 albuterol-ipratropium (DU O-NEB) 2.5 MG-0.5 MG/3 ML 3 mL Nebulization Q4H PRMili Murphy DO 3 mL at 07/01 0417 potassium, sodium phosphates (NEUTRA-PHOS) packet 1 Packet 1 Packet Oral Krystian Grey MD 1 Packet at 12/29/18 213 acetylcysteine (MUCOMYST) 100 mg/mL (10 %) nebulizer solution 200 mg 2 mLNebulization BID RT Mili Hills DO 200 mg at 12/30/18 0756 bacitracin 500 unit/gram packet 1 Packet 1 Packet Topi inez BID Mili Hills DO 1 Packet at 12/29/18 213 budesonide (PULMICORT) 50 0 mcg/2 ml nebulizer suspension 500 mcg NebulizationBID RT Van Plunkett MD 500 mcg at 12/30/18 0824 lamoTRIgine (LaMICtal) tablet 50 mg 50 mg Per G Tub e BID Van Plunkett MD50 mg at 12/29/18 2131 valproic acid (as sodium salt) (DE PAKENE) 250 mg/5 mL (5 mL) oral solution 750mg 750 mg Per G Tube BID Christine Plunkett MD 750 mg at 12/29/182130 cinacalcet (SENSIPAR) tablet 60 mg 60 mg Oral KYLEIGH Y Van Plunkett MD 60mg at 12/29/18 0919 pantoprazole (PROTONIX) granules for ora l suspension 40 mg 40 mg Per G TubeACB Van Plunkett MD 40 mg at 12/29/18 0920 h eparin (porcine) injection 5,000 Units 5,000 Units SubCUTAneous Q12H Van Plunkett M D 5,000 Units at 12/29/18 2331 sodium chloride (NS) flush 5-10 mL 5-10 mL Int raVENous PRN Van Plunkett MDPhysical Exam:Physical Exam:General: Awake, No d istressNeck: SuppleLungs: Clear to auscultationHeart: S1, K8Uocgnct: So ft, non-tender. Bowel sounds normal. No masses, No organomegaly.Extremities: Ed emaData Review:CBC w/DiffRecent Labs 12/29/1902WB C 15.0* 26.5* 9.2RBC 3.13* 3.37* 3.44*HGB 10.5* 11.4* 11.4*HCT 31.2* 33.4* 35.1*MC V 99.7* 99.1* 102.0*MCH 33.5 33.8 33.1MCHC 33.7 34.1 32.5RDW 16.9* 16.8* 16.6* Rece nt Labs 12/29/1902MONOS 7 5 6EOS 0 0 0BASOS 0 0 0RDW 16.9* 16.8* 16.6* Lab ResultsComponent Value Date/Time PLATELET 265 12/30/2018 03:06 AMComprehensive Metabolic ProfileRecent Labs 12/29/190212/28/18 0321NA 141 133* 137K 3.9 4.1 4.6CL 99 95* 96*CO2 38* 35* 34*BUN 17 13 19*CREA 0.33 * 0.46* 0.45* Recent Labs 12/29/19021CA 9.3 9.9 9.5P HOS 3.2 2.4* 2.5ALB 2.0* 2.3* 2.2*X-RAY (Last 24 Hours)Xr Chest PortResult Date: 2018History: leukocytosis Technique: Portable chest x-ray 12/29/2018 11:01 AMComparison : 12/25/2018. FINDINGS: There is a right lower lobe infiltrate oratelectasis which is i ncreased since prior exam. There is poor inspiration.There is a small left pleura l effusion. The exam is rotated. Evaluation of thecardiac silhouette is limited by p rojection. The visualized osseous structuresappear unremarkable.IMPRESSION : There is a right lower lobe infiltrate or atelectasis which isincreased since prio r exam.IMPRESSION:Patient Active Problem ListDiagnosis Code Paraesophageal hiata l hernia K44.9 COPD (chronic obstructive pulmonary disease) ([facility]) J44.9 Acute re spiratory distress R06.03 Pneumonia J18.9 COPD exacerbation ([facility]) J44.1 Sepsis du e to undetermined organism ([facility]) A41.9PLAN: Monitor labs Monitor bun/creat Further recommendations will be based on the patient's response to recommendedtreatme nt and results of the investigation ordered.Oralia Frankel MD12/30/20189:38 AM Name Value Range Interpretation Code Description Data [facility] rce(s) Supporting Document(s ) ID Date Data Source [id number] 12/30/2018 07:38:21 AM EDT [facility] Bedside and Verbal shift change report g ankit to Wes Fonseca RN (oncomingnurse) by Terrell Negron RN(offgoing nurse) . Report given with SBAR, Kardex, Intake/Output, MAR and RecentResults. Name Value Range Interpretation Code Description Data [facility] rce(s) Supporting Document(s ) ID Date Data Source [id number] 12/30/2018 06:34:22 AM EDT [facility] Name Value Range Interpretation Description Data Sup porting Code Source(s) Document(s ) Glucose 113 MG/DL 65-110 Above high normal [facility] - Good [Mass/volume] Taoist in Blood by Hospital Automated test strip ID Date Data Source [id number] 12/30/2018 06:07:27 AM EDT [facility] Name Value Range Interpretation Description Data Sup porting Code Source(s) Document(s ) Sodium 141 136-145 [facility] [Moles/volume] mmol/L Taoist in Serum or Hospital Plasma Potassium 3.9 3.5-5.1 [facility] [Moles/volume] mmol/L [facility]ist in Serum or Hospital Plasma Chloride 99 98-107 [facility] [Moles/volume] mmol/L [facility]ist in Serum or Hospital Plasma Carbon 38 21-32 Above high normal [facility] - Good dioxide, total mmol/L Taoist [Moles/volume] Hospital in Serum or Plasma Anion gap in 7 mmol/L 10-20 Below low normal [facility] - Go od Serum or Taoist Plasma Hospital Glucose 69 mg/dL 74-106 Below low normal [facility] [Mass/volume] Taoist in Serum or Hospital Plasma Urea nitrogen 17 mg/dL 7-18 [facility] [Mass/volume] Taoist in Serum or Hospital Plasma Creatinine 0.33 0.70-1.3 Below low normal [facility] [Mass/volume] mg/dL 0 [facility]ist in Serum or Hospital Plasma Glomerular >60 [facility] - Good filtration Taoist rate/1.73 sq M Hospital predicted among blacks [Volume Rate/Area] in Serum or Plasma by Creatinine-bas ed formula (MDRD) Glomerular >60 [facility] - Good filtration Taoist rate/1.73 sq M Hospital predicted among non-blacks [Volume Rate/Area] in Serum or Plasma by Creatinine-bas ed formula (MDRD) Calcium 9.3 8.5-10.1 [facility] [Mass/volume] mg/dL [facility] in Serum or Hospital Plasma Phosphate 3.2 2.5-4.9 [facility] [Mass/volume] mg/dL [facility] in Serum or Hospital Plasma Albumin 2.0 g/dL 3.5-4.7 Below low normal [facility] [Mass/volume] Taoist in Serum or Hospital Plasma by Bromocresol purple (BCP) dye binding method ID Date Data Source [id number] 12/30/2018 06:07:27 AM EDT [facility] Name Value Range Interpretation Description Data Sup porting Code Source(s) Document(s ) Magnesium 1.8 mg/dL 1.6-2.6 [facility] [Mass/volume] Tao[facility] in Serum or Hospital Plasma ID Date Data Source [id number] 12/30/2018 05:37:21 AM EDT [facility] - [facility] Name Value Range Interpretation Description Data Sup porting Code Source(s) Document(s ) Leukocytes 15.0 4.8-10.6 Above high normal [facility] - [#/volume] in K/uL Good Blood by Taoist Automated count [facility] Erythrocytes 3.13 4.70-6.0 Below low normal [facility] - [#/volume] in M/uL 0 Good Blood by Taoist Automated count [facility] Hemoglobin 10.5 14.0-18. Below low normal [facility] - [Mass/volume] in g/dL 0 Good Blood [facility] Hematocrit 31.2 % 42.0-52. Below low normal [facility] - [Volume 0 Good Fraction] of Taoist Blood by Hospital Automated count Erythrocyte mean 99.7 FL 81.0-94. Above high normal [facility] - corpuscular 0 Good volume [Entitic Taoist volume] by Hospital Automated count Erythrocyte mean 33.5 PG 27.0-35. [facility] - corpuscular 0 Good hemoglobin Taoist [Entitic mass] [facility] by Automated count Erythrocyte mean 33.7 30.7-37. [facility] - corpuscular g/dL 3 Good hemoglobin Taoist concentration [facility] [Mass/volume] by Automated count Erythrocyte 16.9 % 11.5-14. Above high normal [facility] - distribution 0 Good width [Ratio] by Taoist Automated count [facility] Platelets 265 K/uL 130-400 [facility] - [#/volume] in Good Blood by [facility] Platelet mean 10.5 FL 9.2-11.8 [facility] - volume [Entitic Good volume] in Blood Taoist by Automated Hospital count Segmented 74 % 48.0-72. Above high normal [facility] - neutrophils/100 0 Good leukocytes in [facility] Lymphocytes/100 19 % 18.0-40. [facility] - leukocytes in 0 [facility] Monocytes/100 7 % 2.0-12.0 [facility] - leukocytes in [facility] Eosinophils/100 0 % 0.0-7.0 [facility] - leukocytes in [facility] Basophils/100 0 % 0.0-3.0 [facility] - leukocytes in [facility] Segmented 11.1 1.5-6.6 Above high normal [facility] - neutrophils K/UL Good [#/volume] in [facility] Lymphocytes 2.8 K/UL 1.5-3.5 [facility] - [#/volume] in [facility] Monocytes 1.0 K/UL 0.0-1.0 [facility] - [#/volume] in [facility] Eosinophils 0.0 K/UL 0.0-0.7 [facility] - [#/volume] in [facility] Basophils 0.0 K/UL 0.0-0.1 [facility] - [#/volume] in [facility] Differential [facility] - cell count [facility] Immature 1 % 0.0-2.0 [facility] - granulocytes/100 Good leukocytes in [facility] Blood by Hospital Automated count ID Date Data Source [id number] 12/30/2018 12:19:08 AM EDT [facility] Name Value Range Interpretation Description Data Sup porting Code Source(s) Document(s ) Glucose 131 MG/DL 65-110 Above high normal [facility] - [facility] [Mass/volume] Taoist in Blood by [facility] Automated test strip ID Date Data Source [id number] 12/29/2018 07:39:17 PM EDT [facility] Bedside and Verbal shift change report g iven to Terrell Negron RN (oncomingnurse) by Rama Jaimes RN(offgoing nurse). Rep ort given with SBAR, Kardex, Intake/Output, MAR and RecentResults. Name Value Range Interpretation Code Description Data Harriett rce(s) Supporting Document(s ) ID Date Data Source [id number] 12/29/2018 05:58:40 PM EDT [facility] Name Value Range Interpretation Description Data Sup porting Code Source(s) Document(s ) Glucose 120 MG/DL 65-110 Above high normal [facility] [Mass/volume] Taoist in Blood by Hospital Automated test strip ID Date Data Source [id number] 12/29/2018 03:14:50 PM EDT [facility] YUAN done. Name Value Range Interpretation Code Description Data [facility] rce(s) Supporting Document(s ) ID Date Data Source [id number] 12/29/2018 02:51:34 PM EDT [facility] reports no J tube at this time and th at Long-term facility to attempt bolusfeedings at this time. reports d ischarge tomorrow back to [facility]. Spokewith [facility] liaison who is dulce re of discharge tomorrow and pt is acceptedto return. Name Value Range Interpretation Code Description Data [facility] rce(s) Supporting Document(s ) ID Date Data Source [id number] 12/29/2018 01:18:45 PM EDT [facility] Progress NoteMID-[facility] ,[facility].Krystian Monae MD., F.C.C.P.Stella Hamilton MD., F.C.C.P. [address] [place] [id number] [place] [phone]: Evelio Carlin Sex: male DOA: 12/12/2018Da te of : 1950 Age: 68 y.o. LOS: LOS: 17 daysSubjective:Mr. Maximiliano mata is a 68 y.o. year old male who is being seen for pneumonia .Chest xary M inimal Change In r l l , discoid Atelectasis r l l wbc = 10816 Due To SolumedrolObjective:Vital Signs:Patient Vitals for the past 24 hrs: BP Temp Puls e Resp SpO2 Rwcaqp20/16/19 1114 119/56 97.2 F (36.2 C) 77 20 96 % -12/29/18 0742 - - - - 91 % -12/29/18 0731 100/65 97.4 F (36.3 C) 73 20 94 % -12/29/18 0645 96/4 7 - - - - -12/29/18 0530 - - - - - 52.8 kg (116 lb 8 oz)12/29/18 0422 (!) 89/51 97. 5 F (36.4 C) 75 20 96 % -12/29/18 0339 - - 82 - 95 % -12/29/18 0130 - - (!) 102 - 9 4 % -12/28/18 2342 120/62 (!) 100.5 F (38.1 C) (!) 116 20 92 % -12/28/182019 - - - - 92 % -12/28/18 1954 103/70 99.4 F (37.4 C) 92 18 92 % -12/28/18 1526 93/51 97.5 F (36.4 C) - 18 98 % -12/28/18 1319 - - - - 97 % -Pulse OX:SpO2 Readings from Last 6 Encounters:12/29/18 96%11/27/18 91%09/26/15 96%@LASTSAO2(6)@Physical Exam:breathing is Comfortable General: Alert, cooperative, no distress, appears stated age. Head: Normocephalic, without obvious abnormality, atraumatic. Eyes: Conjunctivae/corneas clear. PERRL, EOMs intact. No se: Nares normal. No drainage or sinus tenderness Throat: Lips, mucos a, and tongue normal Neck: Supple, symmetrical, trachea midline, no adenopathy,thyroid: no enlargement/tenderness/nodules, no carot id bruit and no JVD. Lungs: Few rales R L L to auscultation bilatera lly. Chest Wall: No tenderness or deformity. Heart: Regular ra te and rhythm, S1, S2 normal, no murmur, click,rub or gallop. Abdomen: Soft , non-tender. Bowel sounds normal. No masses, No organomegaly. Extremities: Extrem ities normal, atraumatic, no cyanosis or edema. Pulses: 4+ bilaterally. Skin: Skin color, texture, turgor normal. No rashes or lesions. Ne urologic: CNII-XII intact. No focal motor or sensory deficit.Intake and Output:Las t three shifts: 12/27 1901 - 12/29 0700In: 1200Out: 1300 [Urine:1300]Lab Results:Re cent Results (from the past 24 hour(s))GLUCOSE, POC Collection Time: 5:52 PMResult Value Ref Range Glucose, bedside 103 65 - 110 MG/DLGLUCO SE, POC Collection Time: 12/29/18 12:36 AMResult Value Ref Range Glucose, bedsid e 189 (H) 65 - 110 MG/DLRENAL FUNCTION PANEL Collection Time: 12/29/18 3:08 AMResult Value Ref Range Sodium 133 (L) 136 - 145 mmol/L Potassium 4.1 3.5 - 5.1 mmol/L Ch l[place] 95 (L) 98 - 107 mmol/L CO2 35 (H) 21 - 32 mmol/L Anion gap 7 (L) 10 - 20 mmol/L Glucose 146 (H) 74 - 106 mg/dL BUN 13 7 - 18 mg/dL Creatinine 0.46 (L) 0.70 - 1.30 mg /dL GFR est AA >60 >60 ml/min/1.73m2 GFR est non-AA >60 >60 ml/min/1.73m2 Calcium 9.9 8.5 - 10.1 mg/dL Phosphorus 2.4 (L) 2.5 - 4.9 mg/dL Albumin 2.3 (L) 3.5 - 4.7 g/dL MAGNESIUM Collection Time: 12/29/18 3:08 AMResult Value Ref Range Magnesium 1.7 1 .6 - 2.6 mg/dLCBC WITH AUTOMATED DIFF Collection Time: 12/29/18 3:08 AMResult Value Ref Range WBC 26.5 (H) 4.8 - 10.6 K/uL RBC 3.37 (L) 4.70 - 6.00 M/uL HGB 11.4 ( L) 14.0 - 18.0 g/dL HCT 33.4 (L) 42.0 - 52.0 % MCV 99.1 (H) 81.0 - 94.0 FL MCH 33.8 2 7.0 - 35.0 PG MCHC 34.1 30.7 - 37.3 g/dL RDW 16.8 (H) 11.5 - 14.0 % PLATELET 207 130 - 400 K/uL MPV 11.2 9.2 - 11.8 FL NEUTROPHILS 90 (H) 48.0 - 72.0 % LYMPHOCYTES 5 (L) 1 8.0 - 40.0 % MONOCYTES 5 2.0 - 12.0 % EOSINOPHILS 0 0.0 - 7.0 % BASOPHILS 0 0. 0 - 3.0 % RBC COMMENTS 1+MACROCYTOSIS RBC COMMENTS 1+HYPOCHROMIA PLATELET ESTIMATE ADEQUATE DF AUTOMATED ABS. NEUTROPHILS 23.8 (H) 1.5 - 6.6 K/UL ABS. LYMPHOCYTES 1.4 (L) 1.5 - 3.5 K/UL ABS. MONOCYTES 1.2 (H) 0.0 - 1.0 K/UL ABS. EOSINOPHILS 0.0 0.0 - 0. 7 K/UL ABS. BASOPHILS 0.0 0.0 - 0.1 K/ULGLUCOSE, POC Collection Time: 7:06 AMResult Value Ref Range Glucose, bedside 133 (H) 65 - 110 MG/DLURINALYSIS W/ RFLX MICROSCOPIC Collection Time: 12/29/18 11:00 AMResult Value Ref Range Color YELLOW YEL Appearance CLEAR CLEAR Specific gravity 1.005 1.003 - 1.030 pH (UA) 8.0 4.6 - 8.0 Protein NEGATIVE NEG mg/dL Glucose NEGATIVE NEG mg/dL Ketone NEGATIVE NEG mg/dL Bilirubin NEGATIVE NEG Blood NEGATIVE NEG Urobilinogen 1.0 0.2 - 1.0 EU/dL Nitrites NEGATIVE NEG Leukocyte Esterase NEGATIVE NEGGLUCOSE, POC Colle ction Time: 12/29/18 11:48 AMResult Value Ref Range Glucose, bedside 153 (H) 65 - 110 MG/DLABG:No results for input(s): PH, PCO2, PO2, HCO3, FIO2 in the last 72 hours.Rec ent Glucose Results:Lab ResultsComponent Value Date/Time GLU 146 (H) 12/29/2018 0 3:08 AM GLUCPOC 153 (H) 12/29/2018 11:48 AM GLUCPOC 133 (H) 12/29/2018 07:06 AM GLUC POC 189 (H) 12/29/2018 12:36 [email or web address] icro Results Procedure Component Value Units Date/Time CULTURE, BLOOD [[id number]] Col lected: 12/29/18 1123 Order Status: Completed Specimen: Blood Updated: 1201 CULTURE, BLOOD [[id number]] Collected: 12/29/18 1100 Order Status: Completed Specimen: Blood Updated: 12/29/18 1201 CULTURE, URINE [[id number]] Collected: 12/29/18 1100 Order Status: Completed Specimen: Cath Urine Updated: 12/29/18 1116 CULTURE, BLOOD [[id number]] Collected: 12/23/18 1200 Order Status: Completed Specimen: Blood Updated: 12/28/18 0702 Special Requests: NO SPEC IAL REQUESTS Culture result: NO GROWTH 5 DAYS CULTURE, BLOOD [[id number]] Collecte d: 12/23/18 1140 Order Status: Completed Specimen: Blood Updated: 12/28/18 0702 Special Requests: NO SPECIAL REQUESTS Culture result: NO GROWTH 5 DAYS CULTURE , URINE [[id number]] Collected: 12/24/18 0945 Order Status: Completed Specimen: Cath Urine Updated: 12/26/18 1146 Special Requests: NO SPECIAL REQUESTS Culture r esult: NO GROWTH 2 DAYS CULTURE, ANAEROBIC [[id number]] Collected: 12/19/18 1230 Or bassem Status: Completed Specimen: Thoracentesis Updated: 12/24/18 1421 S pecial Requests: NO SPECIAL REQUESTS Culture result: NO GROWTH 4 DAYS CULTURE, BODY F LUID W GRAM STAIN [[id number]] Collected: 12/19/18 1230 Order Status: Completed S pecimen: Left Updated: 12/23/18 1317 Special Requests: NO SPECIAL REQUESTS G ESCOBAR STAIN FEW WBC'S NO ORGANISMS SEEN Culture result: NO GROWTH 4 DAYS CULTURE , BLOOD [[id number]] Collected: 12/12/181939 Order Status: Completed Specimen: Bloo d Updated: 12/17/18642 Special Requests: NO SPECIAL REQUESTS Culture result: NO GROWTH 5 DAYS CULTURE, BLOOD [[id number]] Collected: 12/12/181939 Order Status: Completed Specimen: Blood Updated: 12/17/18642 Special Requests: NO SPEC IAL REQUESTS Culture result: NO GROWTH 5 DAYS CULTURE, URINE [[id number]] Collecte d: 12/12/182003 Order Status: Completed Specimen: Urine Updated: 12/14/18913 Special Requests: NO SPECIAL REQUESTS Culture result: NO GROWTH 1 DAY CULTURE, URINE [[id number]] Collected: 12/12/181929 Order Status: Canceled Specimen: Cath UrineImages:[email or web address] Chest Sngl VResult Date: 12/25/2018Portable chest x- ray. PRIOR EXAM: X-ray 12/18/2018 HISTORY: Pneumonia FINDINGS:The heart is normal i n size. The mediastinum and pulmonary vessels areunremarkable. There is a small right pleural effusion.. A tube projected overthe left upper quadrant of the abdomen..IMPR ESSION: Small right pleural effusion.Ct Chest Wo ContResult Date: 12/18/2018Referring Ph ysician: KRYSTIAN MONAE Patient Name: EVELIO CARLIN THIS IS AFINAL REPORT FROM [facility], [facility] DATE OF SERVICE: 2018-12-18 01:22:40 IMAGES:555 EXAM: CT CHEST WO CO NTRAST HISTORY: .. Right lower lobe atelectasis..TECHNIQUE: Helical axial im aging from the thoracic inlet through the adrenalglands without contrast. Sagittal and coronal reconstructions were obtained.COMPARISON: CT chest without co ntrast of 12/13/2018. FINDINGS: .. Evaluationremains limited due to lack of IV contrast and patient positioning. The imagedthyroid gland remains atrophic. Th e aorta remains normal in caliber.Atherosclerotic calcifications a re again seen in the aorta. There is againcardiomediastinal shift towards the right. The heart remains normal in size andno pericardial effusion is noted. No obvious lymphadenopathy seen on thisunenhanced scan. No pneumothorax is noted. Since the prior exam there is beenincrease in bilateral pleural effusi ons with associated consolidations. Acalcified granuloma is again seen in th e right lower lobe. The imaged upperabdomen does not demonstrate any gross acute maggy nges. Osteopenia is again noted.Degenerative changes again seen in the imaged spine. Old healed right posteriorlower rib fractures are again seen.IMPRESSION: .. Limited s tudy demonstrating increase in bilateral pleuraleffusions with associated consoli dations with persistent cardiomediastinal shifttowards the right. Stable findings as noted above.. One or more of the followingdose reduction techniques were used: automated exposure control, adjustment ofthe mA and/or kV according to patient size, use of iterative reconstructivetechnique. THIS DOCUMENT H BEEN ELECTRONICALLY SIGNED Kamran Gillette MD 12/18/2018 04:49 GINA Verde Please call [facility] [employer] Consultant [phone] with questions. This report was electronically signed by: Tala MENDEZ 12/18/2018 04: 50 AMCt Chest Wo ContResult Date: 12/13/2018History: Respiratory difficulty . FINDINGS: CT scanning of the chest wasperformed helically from the lung api martine to the upper abdomen withoutintravenous contrast material. Sagittal and coronal reconstructed images aresubmitted. Scanning was performed utilizing dose lowering te chniques and iscompared to the prior study of 11/08/2018. The study is quite limited by patientpositioning. Evaluation of thoracic vascular structures is limited withoutin travenous contrast material does not reveal evidence of aneurysmal dilatationor defi nite CT evidence of dissection. Coronary artery calcification is seen.There is mi nimal calcification of the aortic arch. There is minimalcalcification of the descendin g thoracic aorta. There is no definite evidence ofany pathologically enlarged l ymph node in the visualized portions of themediastinum or axillae. Evaluation of pulmonary parenchymal structures revealssome atelectatic change in the right upper lo be. There is a small left pleuraleffusion as well as left basilar atelectatic change. There is some patchyopacity within the right middle lobe and right lower lobe which c ould also beinfiltrative in nature. Limited evaluation of upper abdominal structures isunremarkable. There is deviation of mediastinal structures to the right. Thi scould be as result of atelectatic change within the right lung. This has beenseen previously and is unchanged.IMPRESSION: Extremely limited study by patient posit ioning. Deviation ofmediastinal structures to the right as has been seen on prior stud ies. Leftpleural effusion. Bilateral infiltrates and atelectasis, greater on the rightthan the left.Cta Up Ext Lt W ContResult Date: 12/18/2018History: Arm cl audication. FINDINGS: CTA of the left upper extremity wasperformed helically from le ricky of the shoulder through the fingers after theintravenous administration of 119 cc of Isovue. Sagittal, coronal, and 3-Dreconstructed images obtained on an Real[employer] workstation are submitted. Noprior studies are available for comparison. Th e left subclavian artery is widelypatent. It is continuous with a widely patent left axillary artery. The axillaryartery is continuous with a widely patent left bra chial artery. The brachialartery bifurcates into a radial and ulnar artery just belo w the elbow. From thispoint distally streak artifact from patient positioning limits evaluation.However, the ulnar artery appears widely patent to the wrist. The radial a rteryis less well opacified but does appear patent to the wrist as well. Anintraosse ous artery also appears patent although it is poorly visualized aswell. The digital ar teries are not visualized on this study. There arebilateralpleural effusions note d both of which are moderate to large. Theeffusion on the left one is larger th an the right. Bibasilar atelectatic changethroughout much of the lower lobes is seen. There is a significant shift ofmediastinal structures to the right. T he liver is decreased in attenuationcompatible with fatty infiltr ation. The spleen is unremarkable. The adrenalglands are normal in appearance. The pancreas is grossly normal as is thegallbladder. A gastrostomy tube is no mikel in situ. The kidneys are unremarkable.There is a midline abdomina l wall hernia containing large and small bowel aswell as mesentery without eviden ce of obstruction. There is some presacralthickening and possibly some fr ee fluid noted. The patient is status post ORIFof the left hip with metallic hardwa re in situ.IMPRESSION: Patent left upper extremity arterial vessels although eval uationdistally is limited. Bilateral pleural effusions and bibasilar atelectasis.Shif t of mediastinal structures to the right.Ct Abd Pelv Wo ContResult Date: 12/21/2018His tory: ? Maturity of g-tube tract Technique: CT of the abdomen and pelvis wasperforme d from the dome of the diaphragm to the pubic symphysis without oral orintravenous con trast with dose lowering techniques. Sagittal and coronalreconstructions were performe d. Evaluation of solid abdominal viscera iscompromised by by the lack of intraven ous contrast. Evaluation of the bowelloops is compromised lack of oral contrast. All C T scans at this facility areperformed using dose optimization technique as appropria te to a performed exam,to include automated exposure control, adjustment of the mA a nd/or kV accordingto patient size (including appropriate matching first site-specific examinations), or use of iterative reconstruction technique. Comparison: CT scanof the chest performed 12/19/18 Findings: There is a small right pleural effusionw ith adjacent atelectasis. There is minimal left pleural fluid with adjacentatelecta sis. There is a pigtail catheter again identified on the left. The exactlocatio n of this catheter is difficult to ascertain benefits above the diaphragmto below the diaphragm. On today's study the tip appears to be located below thediaphragm. There is a small right pleural effusion with adjacent atelectasis.There is a G-tube i dentified in the stomach. The liver, gallbladder, spleen,pancreas, kidneys an d adrenal glands are unremarkable. No abdominal, pelvic oringuinal lymphadenop athy is identified. No free intraperitoneal fluid is noted.There is a ventral wall h ernia containing loops of what appear to be small bowelhowever are difficult to foll ow. There is mild perirectal stranding andpresacral edema correlate clinically. No dilated loops of bowel are identified.There is mild diverticulosis of the colon. The prostate, bladder and seminalvesicles appear unremarkable. The re are streak artifact obscuring portions ofthe pelvis due to a left hip ORIF. The re is subcutaneous gas identified alongthe right lower anterior pelvic wall.IMPRESS ION: There is a G-tube identified in the stomach. There is a tailcatheter identif ied on the left. The tip appears to be located below thediaphragm although is d ifficult to assess on CT. There is a small residualamount of pleural fluid as well as atelectasis along the left diaphragm. Thereis perirectal stranding and presacr al edema.Ct Thoracentesis Insrt Chest TubeResult Date: 12/19/2018History: Pleura l effusion. PROCEDURE: After being informed of the risks,benefits, and potential alt ernatives procedure informed consent was obtained.The patient was placed on the t able in the [id number] decubitus position.CT scanning was performed locat ion was chosen over the left flank. However, dueto the significant amount of patient motion and breathing motion was difficultto accurately assess a location for percuta neous paracentesis. Therefore, thiswas performed manually. After the chosen reg ion was prepped and draped in thenormal sterile fashion using maximum sterile ba rrier technique a lidocaineneedle was placed in the skin. This appeared to be in good position. Lidocainewas then used to anesthetize the skin and subcutaneous ti ssues in this location.Attempts were made to pass an 8 Congolese pigtail catheter throug h this location.However, patient continuous motion was significant as well as excess ivebreathing during the procedure. The catheter was placed at the same interspa ceas well as marked on the prior CT sequence however, due to the excessive patientmot ion the catheter was far more inferior within the chest that on the priorsequences. Th e catheter appeared to enter the hemiabdomen on the left from theleft chest. The cath eter was then pulled back to position where clear yellowfluid was aspirated. It was then sewn in position However, It appeared tomigrate forward and on the CT scanning appeared to again transgress thediaphragm. It was therefore pulled back to a point where only a clear fluid wasaspirated and respiratory variation was noted within t he tube. It was then sewnin position using 2-0 silk sutures. FINDINGS: Initial CT s debora revealed amoderate left pleural effusion. Attempts to nancy an adequate l ocation forpercutaneous thoracentesis were quite limited due to excessive patient m otionand breathing throughout the procedure. A location that appear to be a safelocat ion was marked. However, when the catheter was placed in this sameinterspace as wel l as marked the catheter appeared to be far more inferiorwithin the hemithorax than that seen previously. It appeared to enter the lefthemithorax inferiorly and transg ress the diaphragm with no evidence pathologicsequela. Therefore, it was pul led back into the pleural space for adequatedrainage. 130 cc of lightly bloo d-tinged fluid was aspirated. The catheter wasattached to a Pleur-evac and wall suc tion.IMPRESSION: Left-sided thoracentesis described above.Xr Chest PortResult Date : 12/29/2018History: leukocytosis Technique: Portable chest x-ray 12/29/2018 11:01 [facility] [place]parison: 12/25/2018. FINDINGS: There is a right lower lobe infiltrate oratelectasi s which is increased since prior exam. There is poor inspiration.There is a small lef t pleural effusion. The exam is rotated. Evaluation of thecardiac silhouette is l imited by projection. The visualized osseous structuresappear unremarkable.IMPRESSION : There is a right lower lobe infiltrate or atelectasis which isincreased since prio r exam.Xr Chest PortResult Date: 12/18/2018Portable chest x-ray. PRIOR EXAM : 12/12/2018 and 11/25/2018 HISTORY: Pneumonia andpleural effusions FINDINGS: The heart is normal in size. The mediastinum andpulmonary vessels are unremarkable. T here is haziness within the lung basesbilaterally... The bony structures are intact.IMPRESSION: Haziness within the lung bases bilaterally that could repres entsmall pleural effusions and/or subsegmental atelectasis. Similar findin gs wereseen on prior exams.Xr Chest PortResult Date: 12/13/2018History: Respi ratory difficulty. FINDINGS: A frontal portable view of the chestis compared to the prior study from earlier in the same day. EKG leads overliethe chest. The car diac silhouette is normal in size. The left lung is clear. Theright lung is poorly e valuated due to significant rotation. The possibility ofright basilar infiltrate o r atelectatic change cannot be excluded. Mediastinaland hilar structures are poor ly evaluated as well.IMPRESSION: Study quite limited due to rotation. Opacity at the right lung basemay be infiltrative or atelectatic in nature.Xr Chest PortResul t Date: 12/12/2018History: Fever. Lethargy. FINDINGS: 2 frontal views of the chest a re compared tothe prior study of 11/25/2018. EKG leads overlie the chest. The cardiac silhouette is normal in size. There may be some streaky changes at the lungbases. E valuation of the lungs and mediastinal structures is quite limited dueto rotati on.IMPRESSION: Study quite limited by rotation. Basilar streaks noted.Duplex U pper Ext Venous LeftResult Date: 12/26/2018DUPLEX UPPER EXT VENOUS LEFT Cl inical Data: Arm swelling, DVT suspectedFindings: The visualized segmen ts of the left upper extremity venous circulationfrom the level of the subclav deondre vein to the brachial vein is compressible andshows normal phasic flow without an i ntraluminal thrombus. In addition, theinternal jugular vein and the basilic vein is also patent. Extremely limitedexam because the patient was unable to geo ate and this was done in a portablefashion.IMPRESSION: No evidence of deep vein thrombosis within the visualized left upperextremity venous circulation. Limited study.Medications:Current Facility-Administered MedicationsMedicat ion Dose Route Frequency furosemide (LASIX) injection 20 mg 20 mg IntraVENous ONCE valACYclovir (VALTREX) tablet 1,000 mg 1,000 mg Per G Tube Q12H dextrose 5% in fusion 50 mL/hr IntraVENous CONTINUOUS haloperidol lactate (HALDOL) injection 2 mg 2 mg IntraVENous Q6H PRN acetaminophen (TYLENOL) solution 650 mg 650 mg Per NG tube Q4H PRN albuterol-ipratropium (DUO-NEB) 2.5 MG-0.5 MG/3 ML 3 mL Nebul ization Q4H PRN potassium, sodium phosphates (NEUTRA-PHOS) packet 1 Packet 1 Packet Oral QID acetylcysteine (MUCOMYST) 100 mg/mL (10 %) nebulizer solution 200 mg 2 mLNe bulization BID RT albuterol-ipratropium (DUO-NEB) 2.5 MG-0.5 MG/3 ML 3 mL Nebul ization Q6H RT bacitracin 500 unit/gram packet 1 Packet 1 Packet Topical BID b udesonide (PULMICORT) 500 mcg/2 ml nebulizer suspension 500 mcg NebulizationBID RT lamoTRIgine (LaMICtal) tablet 50 mg 50 mg Per G Tube BID valproic acid (as sodium salt) (DEPAKENE) 250 mg/5 mL (5 mL) oral solution 750mg 750 mg Per G Tube BID c inacalcet (SENSIPAR) tablet 60 mg 60 mg Oral DAILY pantoprazole (PROTONIX) granules for oral suspension 40 mg 40 mg Per G TubeACB heparin (porcine) injection 5,0 00 Units 5,000 Units SubCUTAneous Q12H sodium chloride (NS) flush 5-10 mL 5-10 mL IntraVENous PRNActive Problems: Pneumonia (11/08/2018) Sepsis due to und etermined organism (HCC) (12/12/2018)Assessment:obstructive pulmon connor disease (HCC) GERD (gastroesophageal reflux disease) Hyperparathyroidism ( HCC) Mental retardation 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) Pneumonia Psychi atric disorder Pulmonary emboli (HCC) Schizophrenia (HCC) ACUTE RESPIRATORY F AILURE METABOLIC ENCEPHALOPATHY LEFT PLEURAL CATH NOT DRAINING FLUID pLAN PATIENT IS CLEARED FOR G I PROCEDURE BIAPAP AT NIGHT NASAL CANNUL A DAY TIME D/C SOLUMEDROL INCREASED WBC , HAVE GOOD AIR EXCHA NGE DISCUSSED WITH DR REINIER Monae MD F.C.C.P.December 29, 20181:05 PM Name Value Range Interpretation Code Description Data Harriett rce(s) Supporting Document(s ) ID Date Data Source [id number] 12/29/2018 12:04:11 PM EDT [facility] Name Value Range Interpretation Description Data Sup porting Code Source(s) Document(s ) Glucose 153 MG/DL 65-110 Above high normal [facility] [Mass/volume] [facility] in Blood by Hospital Automated test strip ID Date Data Source [id number] 12/29/2018 11:46:22 AM EDT [facility] Cardiology Progress Note12/29/2018 11:37 AMAdmit Date: 12/12/2018Admit Diagnosis: Sepsis due to undetermined organism (HCC ) [A41.9];Pneumonia[J18.9]Subjective:Mr. Carlin is a 68 y.o. year old male who was originally seen for fluidoverload.Pt has severe intellectual disability, schizoph mandy, seizure disorder,hyperparathyroidism, chronic respiratory failure, kyphosis & pulmonary embolism.Pt is s/p surgical PEG 11/17/18 for dysphagia, left CT thoracente sis & pigtailcatheter 12/22/18. G tube was to be replaced with J tube to decrease aspi rationbut pt's respiratory status deteriorated. Elevated NT-proBNP noted. Pt isnonverbalPatient seen and examined at bedside. No new complaints. No events ov ernight.ROS was negative except for that written in the HPI.Objective:Physical Ex am:Visit VitalsBP 119/56 (BP 1 Location: Left arm)Pulse 77Temp 97.2 F (36.2 C)Resp 2 0Ht 5' 2" (1.575 m)Wt 116 lb 8 oz (52.8 kg)SpO2 96%BMI 21.31 kg/m SpO2 Readings from Last 6 Encounters:12/29/18 96%11/27/18 91%09/26/15 96% O2 Flow Rate (L/min): 4 l/minIntake/Output Summary (Last 24 hours) at 12/29/2018 1137Last data filed at 12/30/19 19 0531Gross per 24 hourIntake 1125 mlOutput 900 mlNet 225 mlGeneral Appearance: Well developed, well nourished, in no acute distressrestrained with mittsHead: Normo cephalic/atraumaticEyes: EOM'S intact, conjunctiva pink, sclera non ictericENT: Grossly normalNeck: No JVD, carotid upstroke brisk, no bruit, no thyromegalyChest: Sy mmetrical, clear to auscultationCardiac: Regular rhythm, normal S1 S2 no murmurs or gallopsAbdomen: Soft, non-tender, no organomegaly +PEGExtremities: No lower e xtremity edemaNeuro: Awake, alert, nonverbal, no focal deficitsPsych: Not anxious or agitated.Skin: Warm, dry +excoriations, discolored below right nostrilCurrent Fa cility-Administered MedicationsMedication Dose Route Frequency Provider Last Rate Last Dose valACYclovir (VALTREX) tablet 1,000 mg 1,000 mg Per G Tube Q12H Natasha Dudley MD 1,000 mg at 12/29/18918 methylPREDNISolone (PF) (SOLU-MEDROL) in jection 20 mg 20 mg IntraVENous L39NTexfStella Angelo MD 20 mg at 12/29/18 09 d extrose 5% infusion 50 mL/hr IntraVENous CONTINUOUS Oralia Frankel MD 50mL/hr at 12/28/18 165 50 mL/hr at 12/28/181656 haloperidol lactate (HALDOL) injection 2 mg 2 mg IntraVENous Q6H PRN Stella Hamilton MD 2 mg at 12/28/18 1809 acetaminophe n (TYLENOL) solution 650 mg 650 mg Per NG tube Q4H PRN Mili Hills, DO 650 mg at 12/29/18 0005 albuterol-ipratropium (DUO-NEB) 2.5 MG-0.5 MG/3 ML 3 mL Nebul ization Q4H PRMili Murphy, DO 3 mL at 12/16/18 0417 potassium, sodium phospha tasha (NEUTRA-PHOS) packet 1 Packet 1 Packet Oral Krystian Grey MD 1 Packet at 12/29/18 0919 acetylcysteine (MUCOMYST) 100 mg/mL (10 %) nebulizer solution 200 mg 2 mLNebulization BID RT Mili Hills, 200 mg at 12/29/18 0742 albuterol-iprat ropium (DUO-NEB) 2.5 MG-0.5 MG/3 ML 3 mL Nebulization Q6H RTMili Hills, DO 3 mL at 12/29/18 0742 bacitracin 500 unit/gram packet 1 Packet 1 Packet Topi inez BID Mili Hills, DO 1 Packet at 12/29/18 0919 budesonide (PULMICORT) 50 0 mcg/2 ml nebulizer suspension 500 mcg NebulizationBID RT Van Plunkett MD 500 mcg at 12/29/18 0742 lamoTRIgine (LaMICtal) tablet 50 mg 50 mg Per G Tub e BID Van Plunkett MD50 mg at 12/29/18 0919 valproic acid (as sodium salt) (DE PAKENE) 250 mg/5 mL (5 mL) oral solution 750mg 750 mg Per G Tube BID Christine Plunkett MD 750 mg at 12/29/18 0919 cinacalcet (SENSIPAR) tablet 60 mg 60 mg Oral KYLEIGH Y Van Plunkett MD 60mg at 12/29/18 0919 pantoprazole (PROTONIX) granules for ora l suspension 40 mg 40 mg Per G TubeACB Van Plunkett MD 40 mg at 12/29/18 0920 h eparin (porcine) injection 5,000 Units 5,000 Units SubCUTAneous Q12H Van Plunkett M D 5,000 Units at 12/29/18 0006 sodium chloride (NS) flush 5-10 mL 5-10 mL Int raVENous Van Dallas, ROSEMARYata Review:Labs:Chemistry Recent Labs 12/28/1902GLU 146* 100 200*NA 133* 137 136K 4.1 4.6 4.5CL 95* 9 6* 97*CO2 35* 34* 36*BUN 13 19* 19*CREA 0.46* 0.45* 0.53*CA 9.9 9.5 9.1AGAP 7* 11 7*AL B 2.3* 2.2* 2.1*CBC w/Diff Recent Labs 12/28/1902WB C 26.5* 9.2 8.5HGB 11.4* 11.4* 11.7*HCT 33.4* 35.1* 36.6*PLT 207 241 229GRANS 90* 85* 92*LYMPH 5* 9* 6*EOS 0 0 0Coagulation No results for input(s): PTP, INR, APTT in the last 72 hours.No lab exists for component: INREXTCardio No results for i nput(s): TROIQ, CPK, CKMB in the last 72 hours.Last Lipid: No results found for: CHOL, CHOLX, CHLST, CHOLV, HDL, HDLP, LDL,LDLC, DLDLP, TGLX, TRIGL, TRIGP, CHH D, CHHDXBNP No results for input(s): BNPP in the last 72 hours.Liver Enzymes Recent L abs ALB 2.3*Thyroid Studies No results found for: T4, T3U, TSH, TSHEXTM icrobiology No results for input(s): CULT in the last 72 hours.ImagingXr Chest Sngl V Result Date: 12/25/2018Portable chest x-ray. PRIOR EXAM: X-ray 12/18/2018 HISTORY: Pneu monia FINDINGS:The heart is normal in size. The mediastinum and pulmonary vessels ar eunremarkable. There is a small right pleural effusion.. A tube projected overthe left upper quadrant of the abdomen..IMPRESSION: Small right pleural effusion.Ct Chest Wo ContResult Date: 12/18/2018Referring Physician: KRYSTIAN MONAE Patient Name: LINA CARLIN THIS IS AFINAL REPORT FROM [facility] DATE OF SERVICE: 2018-12 01:22:40 IMAGES:[id number] EXAM: CT CHEST WO CONTRAST HISTORY: .. Right lower lobe at electasis..TECHNIQUE: Helical axial imaging from the thoracic inlet through the adre nalglands without contrast. Sagittal and coronal reconstructions were obtained.CO MPARISON: CT chest without contrast of 12/13/2018. FINDINGS: .. Evaluationremain s limited due to lack of IV contrast and patient positioning. The imagedthyroid g land remains atrophic. The aorta remains normal in caliber.Atherosclerotic calcif ications are again seen in the aorta. There is againcardiomediastinal shift towards the right. The heart remains normal in size andno pericardial effusion is noted. No obvious lymphadenopathy seen on thisunenhanced scan. No pneumothorax is noted. Since the prior exam there is beenincrease in bilateral pleural effusi ons with associated consolidations. Acalcified granuloma is again seen in th e right lower lobe. The imaged upperabdomen does not demonstrate any gross acute maggy nges. Osteopenia is again noted.Degenerative changes again seen in the imaged spine. Old healed right posteriorlower rib fractures are again seen.IMPRESSION: .. Limited s tudy demonstrating increase in bilateral pleuraleffusions with associated consoli dations with persistent cardiomediastinal shifttowards the right. Stable findings as noted above.. One or more of the followingdose reduction techniques were used: automated exposure control, adjustment ofthe mA and/or kV according to patient size, use of iterative reconstructivetechnique. THIS DOCUMENT H BEEN ELECTRONICALLY SIGNED Kamran Gillette MD 12/18/2018 04:49 GINA Verde Please call [facility] [phone] with questions. This report was electronically signed by: Tala MENDEZ 12/18/2018 04: 50 [facility] [place] Chest Wo ContResult Date: 12/13/2018History: Respiratory difficulty . FINDINGS: CT scanning of the chest wasperformed helically from the lung api martine to the upper abdomen withoutintravenous contrast material. Sagittal and coronal reconstructed images aresubmitted. Scanning was performed utilizing dose lowering te scottnichadwick and iscompared to the prior study of 11/08/2018. The study is quite limited by patientpositioning. Evaluation of thoracic vascular structures is limited withoutin travenous contrast material does not reveal evidence of aneurysmal dilatationor defi nite CT evidence of dissection. Coronary artery calcification is seen.There is mi nimal calcification of the aortic arch. There is minimalcalcification of the descendin g thoracic aorta. There is no definite evidence ofany pathologically enlarged l ymph node in the visualized portions of themediastinum or axillae. Evaluation of pulmonary parenchymal structures revealssome atelectatic change in the right upper lo be. There is a small left pleuraleffusion as well as left basilar atelectatic change. There is some patchyopacity within the right middle lobe and right lower lobe which c ould also beinfiltrative in nature. Limited evaluation of upper abdominal structures isunremarkable. There is deviation of mediastinal structures to the right. Thi scould be as result of atelectatic change within the right lung. This has beenseen previously and is unchanged.IMPRESSION: Extremely limited study by patient posit ioning. Deviation ofmediastinal structures to the right as has been seen on prior stud ies. Leftpleural effusion. Bilateral infiltrates and atelectasis, greater on the rightthan the left.Cta Up Ext Lt W ContResult Date: 12/18/2018History: Arm cl audication. FINDINGS: CTA of the left upper extremity wasperformed helically from le ricky of the shoulder through the fingers after theintravenous administration of 119 cc of Isovue. Sagittal, coronal, and 3-Dreconstructed images obtained on an Real[employer] workstation are submitted. Noprior studies are available for comparison. Th e left subclavian artery is widelypatent. It is continuous with a widely patent left axillary artery. The axillaryartery is continuous with a widely patent left bra chial artery. The brachialartery bifurcates into a radial and ulnar artery just belo w the elbow. From thispoint distally streak artifact from patient positioning limits evaluation.However, the ulnar artery appears widely patent to the wrist. The radial a rteryis less well opacified but does appear patent to the wrist as well. Anintraosse ous artery also appears patent although it is poorly visualized aswell. The digital ar teries are not visualized on this study. There arebilateralpleural effusions note d both of which are moderate to large. Theeffusion on the left one is larger th an the right. Bibasilar atelectatic changethroughout much of the lower lobes is seen. There is a significant shift ofmediastinal structures to the right. T he liver is decreased in attenuationcompatible with fatty infiltr ation. The spleen is unremarkable. The adrenalglands are normal in appearance. The pancreas is grossly normal as is thegallbladder. A gastrostomy tube is no mikel in situ. The kidneys are unremarkable.There is a midline abdomina l wall hernia containing large and small bowel aswell as mesentery without eviden ce of obstruction. There is some presacralthickening and possibly some fr ee fluid noted. The patient is status post ORIFof the left hip with metallic hardwa re in situ.IMPRESSION: Patent left upper extremity arterial vessels although eval uationdistally is limited. Bilateral pleural effusions and bibasilar atelectasis.Shif t of mediastinal structures to the right.Ct Abd Pelv Wo ContResult Date: 12/21/2018His tory: ? Maturity of g-tube tract Technique: CT of the abdomen and pelvis wasperforme d from the dome of the diaphragm to the pubic symphysis without oral orintravenous con trast with dose lowering techniques. Sagittal and coronalreconstructions were performe d. Evaluation of solid abdominal viscera iscompromised by by the lack of intraven ous contrast. Evaluation of the bowelloops is compromised lack of oral contrast. All C T scans at this facility areperformed using dose optimization technique as appropria te to a performed exam,to include automated exposure control, adjustment of the mA a nd/or kV accordingto patient size (including appropriate matching first site-specific examinations), or use of iterative reconstruction technique. Comparison: CT scanof the chest performed 12/19/18 Findings: There is a small right pleural effusionw ith adjacent atelectasis. There is minimal left pleural fluid with adjacentatelecta sis. There is a pigtail catheter again identified on the left. The exactlocatio n of this catheter is difficult to ascertain benefits above the diaphragmto below the diaphragm. On today's study the tip appears to be located below thediaphragm. There is a small right pleural effusion with adjacent atelectasis.There is a G-tube i dentified in the stomach. The liver, gallbladder, spleen,pancreas, kidneys an d adrenal glands are unremarkable. No abdominal, pelvic oringuinal lymphadenop athy is identified. No free intraperitoneal fluid is noted.There is a ventral wall h ernia containing loops of what appear to be small bowelhowever are difficult to foll ow. There is mild perirectal stranding andpresacral edema correlate clinically. No dilated loops of bowel are identified.There is mild diverticulosis of the colon. The prostate, bladder and seminalvesicles appear unremarkable. The re are streak artifact obscuring portions ofthe pelvis due to a left hip ORIF. The re is subcutaneous gas identified alongthe right lower anterior pelvic wall.IMPRESS ION: There is a G-tube identified in the stomach. There is a tailcatheter identif ied on the left. The tip appears to be located below thediaphragm although is d ifficult to assess on CT. There is a small residualamount of pleural fluid as well as atelectasis along the left diaphragm. Thereis perirectal stranding and presacr al edema.Ct Thoracentesis Insrt Chest TubeResult Date: 12/19/2018History: Pleura l effusion. PROCEDURE: After being informed of the risks,benefits, and potential alt ernatives procedure informed consent was obtained.The patient was placed on the t able in the kunrp-herk-rarf decubitus position.CT scanning was performed locat ion was chosen over the left flank. However, dueto the significant amount of patient motion and breathing motion was difficultto accurately assess a location for percuta neous paracentesis. Therefore, thiswas performed manually. After the chosen reg ion was prepped and draped in thenormal sterile fashion using maximum sterile ba rrier technique a lidocaineneedle was placed in the skin. This appeared to be in good position. Lidocainewas then used to anesthetize the skin and subcutaneous ti ssues in this location.Attempts were made to pass an 8 Congolese pigtail catheter throug h this location.However, patient continuous motion was significant as well as excess ivebreathing during the procedure. The catheter was placed at the same interspa ceas well as marked on the prior CT sequence however, due to the excessive patientmot ion the catheter was far more inferior within the chest that on the priorsequences. Th e catheter appeared to enter the hemiabdomen on the left from theleft chest. The cath eter was then pulled back to position where clear yellowfluid was aspirated. It was then sewn in position However, It appeared tomigrate forward and on the CT scanning appeared to again transgress thediaphragm. It was therefore pulled back to a point where only a clear fluid wasaspirated and respiratory variation was noted within t he tube. It was then sewnin position using 2-0 silk sutures. FINDINGS: Initial CT s debora revealed amoderate left pleural effusion. Attempts to nancy an adequate l ocation forpercutaneous thoracentesis were quite limited due to excessive patient m otionand breathing throughout the procedure. A location that appear to be a safelocat ion was marked. However, when the catheter was placed in this sameinterspace as wel l as marked the catheter appeared to be far more inferiorwithin the hemithorax than that seen previously. It appeared to enter the lefthemithorax inferiorly and transg ress the diaphragm with no evidence pathologicsequela. Therefore, it was pul led back into the pleural space for adequatedrainage. 130 cc of lightly bloo d-tinged fluid was aspirated. The catheter wasattached to a Pleur-evac and wall suc tion.IMPRESSION: Left-sided thoracentesis described above.Xr Chest PortResult Date : 12/29/2018History: leukocytosis Technique: Portable chest x-ray 12/29/2018 11:01 [facility] [place] omparison: 12/25/2018. FINDINGS: There is a right lower lobe infiltrate oratelectasi s which is increased since prior exam. There is poor inspiration.There is a small lef t pleural effusion. The exam is rotated. Evaluation of thecardiac silhouette is l imited by projection. The visualized osseous structuresappear unremarkable.IMPRESSION : There is a right lower lobe infiltrate or atelectasis which isincreased since prio r exam.Xr Chest PortResult Date: 12/18/2018Portable chest x-ray. PRIOR EXAM : 12/12/2018 and 11/25/2018 HISTORY: Pneumonia andpleural effusions FINDINGS: The heart is normal in size. The mediastinum andpulmonary vessels are unremarkable. T here is haziness within the lung basesbilaterally... The bony structures are intact.IMPRESSION: Haziness within the lung bases bilaterally that could repres entsmall pleural effusions and/or subsegmental atelectasis. Similar findin gs wereseen on prior exams.Xr Chest PortResult Date: 12/13/2018History: Respi ratory difficulty. FINDINGS: A frontal portable view of the chestis compared to the prior study from earlier in the same day. EKG leads overliethe chest. The car diac silhouette is normal in size. The left lung is clear. Theright lung is poorly e valuated due to significant rotation. The possibility ofright basilar infiltrate o r atelectatic change cannot be excluded. Mediastinaland hilar structures are poor ly evaluated as well.IMPRESSION: Study quite limited due to rotation. Opacity at the right lung basemay be infiltrative or atelectatic in nature.Xr Chest PortResul t Date: 12/12/2018History: Fever. Lethargy. FINDINGS: 2 frontal views of the chest a re compared tothe prior study of 11/25/2018. EKG leads overlie the chest. The cardiac silhouette is normal in size. There may be some streaky changes at the lungbases. E valuation of the lungs and mediastinal structures is quite limited dueto rotati on.IMPRESSION: Study quite limited by rotation. Basilar streaks noted.Duplex U pper Ext Venous LeftResult Date: 12/26/2018DUPLEX UPPER EXT VENOUS LEFT Cl inical Data: Arm swelling, DVT suspectedFindings: The visualized segmen ts of the left upper extremity venous circulationfrom the level of the subclav deondre vein to the brachial vein is compressible andshows normal phasic flow without an i ntraluminal thrombus. In addition, theinternal jugular vein and the basilic vein is also patent. Extremely limitedexam because the patient was unable to geo ate and this was done in a portablefashion.IMPRESSION: No evidence of deep vein thrombosis within the visualized left upperextremity venous circulation. Limited study.EKG:Results for orders placed or performed during the hospital encount er of 12/12/18EKG, 12 LEAD, INITIALResult Value Ref Range Ventricular Rate 82 BPM Atrial Rate 81 BPM P-R Interval 122 ms QRS Duration 132 ms Q-T Interval 436 ms QTC Calculation (Bezet) 509 ms Calculated P [place] 62 degrees Calculated R [place] 65 degrees Calculated T [place] 66 degrees Diagnosis Sinus rhythmIVCD, consider atypical RBBBArtifa ct limits interpretation, ST elevation noted avF but other inferiorleads not able to be evaluatedConfirmed by Joaquin Carrasco MD ([id number]) on 12/17/2018 11:57:07 AMEKG 9: NSR 82/min, atypical RBBB Echo 11/14/18: limited, LVEF 55-60%, MVP posterior leaf let CXR 12/29/18: small left pleural effusion, RLL infitrateTelemetry: normal sinus rhy thm lots of artifact looking like pacer spikesAssessmentProblem List as of 2018 Date Reviewed: 12/28/2018 Codes Class Noted - Resolved Sepsis due to und etermined organism ([facility]) ICD-10-CM: A41.9ICD-9-CM: 038.9 12/12/2018 - Presen t COPD (chronic obstructive pulmonary disease) ([facility]) ICD-10-CM: J44.9ICD-9-CM: 496 11/08/2018 - Present Acute respiratory distress ICD-10-CM: R06.03ICD-9-CM: 518. 82 11/08/2018 - Present Pneumonia ICD-10-CM: J18.9ICD-9-CM: 486 11/08/2018 - Present COPD exacerbation ([facility]) ICD-10-CM: J44.1ICD-9-CM: 491.21 11/08/2018 - Prese nt Paraesophageal hiatal hernia ICD-10-CM: K44.9ICD-9-CM: 553.3 09/26/2015 - Presen tSEPSISPNEUMONIACOPDPLEURAL EFFUSIONFLUID OVERLOADHYPERPARATHYROIDMENTALLY CHALLEN GEDSEIZURE DISORDERPlan:Lasix prnF/u EKG pendingPulmonary/IDSeymoKirill Jaime tember 2018 Name Value Range Interpretation Code Description Data Harriett rce(s) Supporting Document(s ) ID Date Data Source [id number] 12/29/2018 11:21:51 AM EDT [facility] History: leukocytosisTechnique: Portable chest x-ray 12/29/2018 11:01 AMComparison: 12/25/2018. FINDINGS: There is a right lo wer lobe infiltrate or atelectasis which isincreased since prior exam. There is p oor inspiration. There is a small leftpleural effusion. The exam is rotated.Evaluation of the cardiac silhouette is limited by projection.The visualized osseous struct ures appear unremarkable.IMPRESSION: There is a right lower lobe infiltrate or atelect asis which isincreased since prior exam. Signing date/time: 12/29/2018 11:21 AMSig nataly by: ROSALEE DOE Name Value Range Interpretation Code Description Data Harriett rce(s) Supporting Document(s ) ID Date Data Source [id number] 01/03/2019 06:30:46 AM T [facility] Name Value Range Interpretation Description Data Sup porting Code Source(s) Document(s ) Service comment [facility] Bacteria [facility] identified in [facility] specimen by Culture ID Date Data Source [id number] 12/29/2018 11:14:36 AM EDT [facility] -Once J-tube placed and ready to start f eeds: suggest change EN order toOsmolite 1.5 continuous at 20 mL/hr progressing towar d goal rate of 50 mL/hr(1800 kcal, 75 gm pro and 125 mL free water flush q 4 hr-Bolus feedings not appropriate for J-tube.-Weight: 52.8 kg indicating continued downward tr end from 63.5 kg on 12/19.Current weight similar to admission weight. Name Value Range Interpretation Code Description Data Harriett rce(s) Supporting Document(s ) ID Date Data Source [id number] 12/29/2018 11:13:14 AM EDT [facility] RECOMMENDATION:-Once J-tube placed and r rickey to start feeds: suggest change EN order toOsmolite 1.5 continuous at 20 mL/hr pr ogressing toward goal rate of 50 mL/hr(1800 kcal, 75 gm pro and 125 mL free water fl ush q 4 hr-Bolus feedings not appropriate for J-tube.ASSESSMENT:Subjective: pt tolerat ing bolus feeds well at goal via G tube per RN. No familymembers at bedside. Pt nonv erbal. PEG conversion to J tube deferred againtoday. J tube placement being consi dered in setting of aspiration risk. PEGplaced 11/17. Soft stools, loose stools resolved since 12/25. TF order at [facility]:Osmolite 1.5 x 40 ml/hr x 20 hours p roviding 1200kcal, 47 g prot 153g cho, 36gfat, 571 ml free waterNutrition Rx: O smolite 1.5 1 can bolus q4h (5 per day)+ 75 ml free water beforeand after bolus feed (1775kcal, 75g prot, 241g CHO, 1655 ml free water)Nutritionally Pertinent Labs: BG 1 33,146,189, Na+ 133Nutritionally Significant Meds: solu-medrol, neutra-phosSkin: lidnsey ins intact; 3+ genital, trace b/l LE edema; butch score 11% Meals consumed: n/a, NECKTIE MAKER O on ENNo data found.Weight: 52.8 kg indicating continued downward trend from 63.5 kg on 12/19. Currentweight similar to admission weight. DIAGNOSIS:remains the same -Increased protein and energy needsINTERVENTION:-Once J-tube placed an d ready to start feeds: suggest change EN order toOsmolite 1.5 continuous at 20 mL /hr progressing toward goal rate of 50 mL/hr(1800 kcal, 75 gm pro, 244 gm CHO, 59 gm fat, 914 mL water) and 125 mL freewater flush q 4 hr once IVF d/c'dBolus feeding s not appropriate for J-tube.GOALS:-Pt meets >80% nutrient needs within 3-7 daysMONIT OR/EVALUATE:-weight trend-Jtube vs Gtube-transition to continous feeds if J tube placed-skinDischarge Planning:-pending clinical courseYuki Camarillo RD Name Value Range Interpretation Code Description Data Harriett rce(s) Supporting Document(s ) ID Date Data Source [id number] 01/03/2019 06:30:44 AM EDT [facility] Name Value Range Interpretation Description Data Sup porting Code Source(s) Document(s ) Service comment [facility] Bacteria [facility] - [facility] identified in [facility] specimen by Culture ID Date Data Source [id number] 12/31/2018 12:46:44 PM EDT [facility] Name Value Range Interpretation Code Description Data Harriett rce(s) Supporting Document(s ) Service [facility] - [facility] 10,000 to 50,000COLONIES/mLKLEBSIELLA [id number],000-100,000COLONIES/mLPSEUDOMONAS [id number],000 to 50,000COLONIES/mLSTA PHYLOCOCCUS EPIDERMIDIS ID Date Data Source [id number] 12/31/2018 12:46:44 PM EDT [facility] Name Value Range Interpretation Description Data Sup porting Code Source(s) Document(s ) Ampicillin Results entered -- [facility] - [Susceptibility] not verified Good by Minimum [facility] concentration ([facility]) Piperacillin+Tazo Susceptible. [facility] - bactam Indicates for Good [Susceptibility] microbiology [facility] by Minimum susceptibilities Hospital inhibitory only. concentration ([facility]) Cefazolin Susceptible. [facility] - [Susceptibility] Indicates for Good by Minimum microbiology [facility] inhibitory susceptibilities Hospital concentration only. ([facility]) Ceftazidime Susceptible. [facility] - [Susceptibility] Indicates for Good by Minimum microbiology [facility] inhibitory susceptibilities Hospital concentration only. ([facility]) Ciprofloxacin Susceptible. [facility] - [Susceptibility] Indicates for Good by Minimum microbiology [facility] inhibitory susceptibilities Hospital concentration only. ([facility]) Levofloxacin Susceptible. [facility] - [Susceptibility] Indicates for Good by Minimum microbiology [facility] inhibitory susceptibilities Hospital concentration only. ([facility]) Gentamicin Susceptible. [facility] - [Susceptibility] Indicates for Good by Minimum microbiology [facility] inhibitory susceptibilities Hospital concentration only. ([facility]) Tobramycin Susceptible. [facility] - [Susceptibility] Indicates for Good by Minimum microbiology [facility] inhibitory susceptibilities Hospital concentration only. ([facility]) Nitrofurantoin 64 ug/mL Specimen in lab; [facility] - [Susceptibility] results pending Good by Minimum [facility] concentration ([facility]) Trimethoprim+Sulf Susceptible. [facility] - amethoxazole Indicates for Good [Susceptibility] microbiology [facility] by Minimum susceptibilities Hospital inhibitory only. concentration ([facility]) Beta Susceptible. [facility] - lactamase.extende Indicates for Good d spectrum microbiology [facility] [Susceptibility] susceptibilities Hospit al only. Ampicillin+Sulbac 8 ug/mL Susceptible. [facility] - millan Indicates for Good [Susceptibility] microbiology [facility] by Minimum susceptibilities Hospital inhibitory only. concentration ([facility]) ID Date Data Source [id number] 12/31/2018 12:46:44 PM EDT [facility] Name Value Range Interpretation Code Description Data Supporting Source(s) Document(s ) Ceftazidime 16 ug/mL Specimen in lab; [facility] - [Susceptibility] results pending Good by Minimum [facility] concentration ([facility]) Ciprofloxacin 1 ug/mL Susceptible. [facility] - [Susceptibility] Indicates for Good by Minimum microbiology [facility] inhibitory susceptibilities Hospital concentration only. ([facility]) Gentamicin Susceptible. [facility] - [Susceptibility] Indicates for Good by Minimum microbiology [facility] inhibitory susceptibilities Hospital concentration only. ([facility]) Tobramycin Susceptible. [facility] - [Susceptibility] Indicates for Good by Minimum microbiology [facility] inhibitory susceptibilities Hospital concentration only. ([facility]) Cefepime 8 ug/mL Specimen in lab; [facility] - [Susceptibility] results pending Good by Minimum [facility] concentration ([facility]) ID Date Data Source [id number] 12/31/2018 12:46:44 PM EDT [facility] Name Value Range Interpretation Description Data Sup porting Code Source(s) Document(s ) Gentamicin Susceptible. [facility] - [Susceptibility] Indicates for Good by Minimum microbiology [facility] inhibitory susceptibilities Hospital concentration only. ([facility]) Nitrofurantoin Susceptible. [facility] - [Susceptibility] Indicates for Good by Minimum microbiology [facility] inhibitory susceptibilities Hospital concentration only. ([facility]) Oxacillin Results entered -- [facility] - [Susceptibility] not verified Good by Minimum [facility] concentration ([facility]) Penicillin G Results entered -- [facility] - [Susceptibility] not verified Good by Minimum Taoist inhibitory Hospital concentration (ANTONIO) Vancomycin 1 ug/mL Susceptible. [facility] - [Susceptibility] Indicates for Good by Minimum microbiology Taoist inhibitory susceptibilities Hospital concentration only. (ANTONIO) ID Date Data Source [id number] 12/29/2018 11:25:00 AM EDT [facility] - [facility] Name Value Range Interpretation Description Data Sup porting Code Source(s) Document(s ) Color of Urine YEL [facility] - [facility] Appearance of CLEAR [facility] - Urine [facility] Specific gravity 1.005 1.003-1. [facility] - of Urine by 030 Good Refractometry [facility] pH of Urine by 8.0 4.6-8.0 [facility] - Test strip [facility] Protein NEG [facility] - [Mass/volume] in Good Urine by Test [facility] Glucose NEG [facility] - [Mass/volume] in Good Urine by Taoist Automated test [facility] strip Ketones NEG [facility] - [Presence] in Good Urine by Taoist Automated test [facility] strip Bilirubin.total NEG [facility] - [Presence] in Good Urine [facility] Hemoglobin NEG [facility] - [Presence] in Good Urine by [facility] Urobilinogen 1.0 0.2-1.0 [facility] - [Presence] in EU/dL Good Urine by Taoist Automated test Hospital strip Nitrite NEG [facility] - [Presence] in Good Urine by Taoist Automated test Hospital strip Leukocyte NEG [facility] - esterase Good [Presence] in Taoist Urine by Hospital Automated test strip ID Date Data Source [id number] 12/29/2018 10:15:27 AM EDT [facility] - [facility] ID Progress Note12/29/2018Patient is non verbal,unable to provide any historyHad one episode of fever to 100.5WBC up to 26KNo mikel to have ulcers on lips.ComfortableObjective:Vitals:Patient Vitals for the past 24 hrs: BP Temp Pulse Resp SpO2 Tqxvak13/16/19 0742 - - - - 91 % -12/29/18 0731 100/65 97.4 F (36.3 C) 73 20 94 % -12/29/18 0645 96/47 - - - - - 0530 - - - - - 52.8 kg (116 lb 8 oz)12/29/18 0422 (!) 89/51 97.5 F (36.4 C) 75 20 96 % -12/29/18 0339 - - 82 - 95 % -12/29/18 0130 - - (!) 102 - 94 % -12/28 2342 120/62 (!) 100.5 F (38.1 C) (!) 116 20 92 % -12/28/182019 - - - - 92 % -12/28/18 1954 103/70 99.4 F (37.4 C) 92 18 92 % -12/28/18 1526 93/51 97.5 F (36.4 C) - 18 98 % -12/28/18 1319 - - - - 97 % -12/28/18 1128 107/56 97.2 F (36.2 C) 82 18 90 % -Tmax: Temp (24hrs), Av.3 F (36.8 C), Min:97.2 F (36.2 C), Max:10 0.5 F(38.1 C)Physical Exam:General: Awake non verbal, cooperative, no distressMout h/Throat: Ulcers no upper and lower lips.Neck: Supple, symmetrical, trachea midline, no adenopathyLungs: Decrease breath sounds at bases.Heart: Regular r ate and rhythm, S1, S2 normal, no murmurAbdomen: Soft, non-tender. Bowel sounds normal. No masses, No organomegaly.+feeding tubeBack: No CVA tenderness.Extremities: Extremities normal, atraumatic, no cyanosis or edema.Pulses: 2+ and symmetric all extremities.Skin: Skin color, texture, turgor normal. No rashes or lesionsCurrent Facility-Administered MedicationsMedication Dose Route Frequen cy valACYclovir (VALTREX) tablet 1,000 mg 1,000 mg Per G Tube Q12H methylPREDNISo lone (PF) (SOLU-MEDROL) injection 20 mg 20 mg IntraVENous Q12H dextrose 5% infusio n 50 mL/hr IntraVENous CONTINUOUS haloperidol lactate (HALDOL) injection 2 mg 2 mg IntraVENous Q6H PRN acetaminophen (TYLENOL) solution 650 mg 650 mg Per NG tube Q4H PRN albuterol-ipratropium (DUO-NEB) 2.5 MG-0.5 MG/3 ML 3 mL Nebul ization Q4H PRN potassium, sodium phosphates (NEUTRA-PHOS) packet 1 Packet 1 Packet Oral QID acetylcysteine (MUCOMYST) 100 mg/mL (10 %) nebulizer solution 200 mg 2 mLNe bulization BID RT albuterol-ipratropium (DUO-NEB) 2.5 MG-0.5 MG/3 ML 3 mL Nebul ization Q6H RT bacitracin 500 unit/gram packet 1 Packet 1 Packet Topical BID b udesonide (PULMICORT) 500 mcg/2 ml nebulizer suspension 500 mcg NebulizationBID RT lamoTRIgine (LaMICtal) tablet 50 mg 50 mg Per G Tube BID valproic acid (as sodium salt) (DEPAKENE) 250 mg/5 mL (5 mL) oral solution 750mg 750 mg Per G Tube BID c inacalcet (SENSIPAR) tablet 60 mg 60 mg Oral DAILY pantoprazole (PROTONIX) granules for oral suspension 40 mg 40 mg Per G TubeACB heparin (porcine) injection 5,0 00 Units 5,000 Units SubCUTAneous Q12H sodium chloride (NS) flush 5-10 mL 5-10 mL IntraVENous PRNLabs:Recent Labs 12/28/1902 0 [id number] 26.5* 9.2 8.5 13.7*HGB 11.4* 11.4* 11.7* 11.9*PLT 207 241 229 234BUN 13 19* 19* --CREA 0.46* 0.45* 0.53* --Cultures:Lab ResultsComponent Value Da te/Time Culture result: NO GROWTH 2 DAYS 12/24/2018 09:45 AM Culture result: NO G ROWTH 5 DAYS 12/23/2018 12:00 PM Culture result: NO GROWTH 5 DAYS 12/23/2018 11:4 0 AMRadiology:No results found.Assessment: Sepsis. Aspiration pneumonia. Acute re spiratory failure with hypoxia and hypercapnia. Acute COPD exacerbation. Dysphagia. Atelectasis. Pleural effusion. Leukocytosis HSV stomatitis Plan:1. Continue Valtrex via peg.2. Blood cx x 2 set3. UA, UCx4. If diarrhea send for C. Diff5. Check chest x-rayMaPalomo Valiente 20190125 AM Name Value Range Interpretation Code Description Data Harriett rce(s) Supporting Document(s ) ID Date Data Source [id number] 12/29/2018 09:37:20 AM EDT [facility] Progress NotePatient: Evelio Carlin SSN: [id number] of : 1950 Age: 68 y.o. Sex: maleAdmit Date: 12/12/2018 LOS: 17 daysSubjective:Non-verbal.Oxygen levels improved but not yet cleared by pulmonary for endoscopicprocedure.WBC increased today to ~ 27 from 9.Tolerating bolus feeds.Objective:Vitals: 12/29/18 0530 0645 12/29/18 0731 12/29/18 0742BP: 96/47 100/65Pulse: 73Resp: 20Temp: 97.4 F (36.3 C)SpO2: 94% 91%Weight: 52.8 kg (116 lb 8 oz)Height:Intake and Output :Current Shift: No intake/output data recorded.Last three shifts: 12/27 1900 - 12/29 0700In: 1200Out: 1300 [Urine:1300]Physical Exam:Gen NADAbd sof t, NT, +g tube in placeLab/Data Review:CMP:Lab ResultsComponent Value Da te/Time NA 133 (L) 12/29/2018 03:08 AM K 4.1 12/29/2018 03:08 AM CL 95 (L) 12/29/2018 03:08 AM CO2 35 (H) 12/29/2018 03:08 AM AGAP 7 (L) 12/29/2018 03:08 AM GLU 146 (H) 03:08 AM BUN 13 12/29/2018 03:08 AM CREA 0.46 (L) 12/29/2018 03:08 AM GFRAA >60 12/29/2018 03:08 AM GFRNA >60 12/29/2018 03:08 AM CA 9.9 12/29/2018 03:08 AM MG 1 .7 12/29/2018 03:08 AM PHOS 2.4 (L) 12/29/2018 03:08 AM ALB 2.3 (L) 12/30/19 19 03:08 AMCBC:Lab ResultsComponent Value Date/Time WBC 26.5 (H) 12/29/2018 03:08 AM HGB 11.4 (L) 12/29/2018 03:08 AM HCT 33.4 (L) 12/29/2018 03:08 AM PLT 207 12/30/19 03:08 AMAssessment:Active Problems: Pneumonia (11/08/2018) Sepsis due to und etermined organism (HCC) (12/12/2018)Plan:Continue bolus feeds via g-tube.Consider placement of jejunal tube through the PEG tube oncerespiratory/inf ectious status improved.Signed By: Brad Mansfield MD December 29, 2018 Name Value Range Interpretation Code Description Data Harriett rce(s) Supporting Document(s ) ID Date Data Source [id number] 12/29/2018 09:11:51 AM EDT [facility] Progress NoteEvelio Carlin68 y.o.Adm it Date: 12/12/2018Subjective:Patient awakeMore alertNo distressReview of syst ems not obtained due to patient factors.Objective:Visit VitalsBP 100/65 (BP 1 Location: Left arm, BP Patient Position: At rest)Pulse 73Temp 97.4 F ( 36.3 C)Resp 20Ht 5' 2" (1.575 m)Wt 52.8 kg (116 lb 8 oz)SpO2 91%BMI 21.31 kg/m Inta ke/Output Summary (Last 24 hours) at 12/29/2018 0911Last data filed at 12/30/19 19 0531Gross per 24 hourIntake 1125 mlOutput 900 mlNet 225 mlCurrent Facility-Adminis tered MedicationsMedication Dose Route Frequency Provider Last Rate Last Dose valACYclovir (VALTREX) tablet 1,000 mg 1,000 mg Per G Tube Q12H Natasha Dudley MD 1,0 00 mg at 12/28/18 213 methylPREDNISolone (PF) (SOLU-MEDROL) injection 20 mg 20 m g IntraVENous [id number] fallon MD 20 mg at 12/28/18 213 dextrose 5% infusion 50 mL/hr IntraVENous CONTINUOUS Oralia Frankel MD 50mL/hr at 12/28/18 1657 50 mL /hr at 12/28/18 165 haloperidol lactate (HALDOL) injection 2 mg 2 mg IntraVENou s Q6H PRN Stella Hamilton MD 2 mg at 12/28/18 1809 acetaminophen (TYLENOL) s olution 650 mg 650 mg Per NG tube Q4H PRN Mili Hills DO 650 mg at 12/29/18 0005 albuterol-ipratropium (DUO-NEB) 2.5 MG-0.5 MG/3 ML 3 mL Nebulization Q4H TN Mili Murphy DO 3 mL at 12/16/18 0417 potassium, sodium phosphates (NEUTRA-JOCY S) packet 1 Packet 1 Packet Oral Krystian Grey MD 1 Packet at 12/28/18 2134 a cetylcysteine (MUCOMYST) 100 mg/mL (10 %) nebulizer solution 200 mg 2 mLNebulizat ion BID RT Mili Hills DO 200 mg at 12/29/18 0742 albuterol-ipratropium (DU O-NEB) 2.5 MG-0.5 MG/3 ML 3 mL Nebulization Q6H RTMili Hills, 3 mL at 12/14 10/01 0742 bacitracin 500 unit/gram packet 1 Packet 1 Packet Topical BID Maryann Hills DO 1 Packet at 12/28/18 213 budesonide (PULMICORT) 500 mcg/2 ml nebu lizer suspension 500 mcg NebulizationBID RT Van Plunkett MD 500 mcg at 12/29/18 0742 lamoTRIgine (LaMICtal) tablet 50 mg 50 mg Per G Tube BID Van Plunkett MD5 0 mg at 12/28/182133 valproic acid (as sodium salt) (DEPAKENE) 250 mg/5 mL (5 m L) oral solution 750mg 750 mg Per G Tube BID Van Plunkett MD 750 mg at 12/28/18 213 cinacalcet (SENSIPAR) tablet 60 mg 60 mg Oral DAILY Van Plunkett MD 60mg at 12/28/18 0908 pantoprazole (PROTONIX) granules for oral suspension 40 mg 40 m g Per G TubeACB Van Plunkett MD 40 mg at 12/28/18 0909 heparin (porcine) injecti on 5,000 Units 5,000 Units SubCUTAneous Q12H Van Plunkett MD 5,000 Units at 12/29 0006 sodium chloride (NS) flush 5- 10 mL 5-10 mL IntraVENous PRN Van Plunkett MDPhysical Exam:Physical Exam:General: Awake, No distressNeck: SuppleLungs: C lear to auscultationHeart: S1, Q0Hghcksy: Soft, non-tender. Bowel sounds normal. N o masses, No organomegaly.Extremities: EdemaData Review:CBC w/DiffRecent Labs 12/28/1902WBC 26.5* 9.2 8.5RBC 3.37* 3.44* 3.60*HGB 11 .4* 11.4* 11.7*HCT 33.4* 35.1* 36.6*MCV 99.1* 102.0* 101.7*MCH 33.8 33.1 32.5MCHC 34.1 32.5 32.0RDW 16.8* 16.6* 17.3* Recent Labs 12/28/1902MO NOS 5 6 2EOS 0 0 0BASOS 0 0 0RDW 16.8* 16.6* 17.3* Lab ResultsComponent Value Date/Ti me PLATELET 207 12/29/2018 03:08 AMComprehensive Metabolic ProfileRecent Labs 12/28/1902NA 133* 137 136K 4.1 4.6 4.5 CL 95* 96* 97*CO2 35* 34* 36*BUN 13 19* 19*CREA 0.46* 0.45* 0.53* Recent Labs 0 12/28/1902CA 9.9 9.5 9.1PHOS 2.4* 2.5 2.3*ALB 2.3* 2.2* 2 .1*X-RAY (Last 24 Hours)No results found.IMPRESSION:Patient Active Problem ListDiagnosis Code 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 COPD (chronic obstructive pulmonary disease) ([facility]) J44.9 Acute respiratory distress R06.03 Pneumonia J 18.9 COPD exacerbation ([facility]) J44.1 Sepsis due to undetermined organism ([facility]) A41.9 PLAN: Monitor labs Monitor bun/creat Further recommendations will be based on the patient's response to recommendedtreatment and results of the investigation ordered.Oralia Frankel MD12/29/20189:38 AM Name Value Range Interpretation Code Description Data Harriett rce(s) Supporting Document(s ) ID Date Data Source [id number] 12/29/2018 07:18:01 AM EDT [facility] - G ood [facility] Name Value Range Interpretation Description Data Sup porting Code Source(s) Document(s ) Glucose 133 MG/DL 65-110 Above high normal [facility] - Good [Mass/volume] Taoist in Blood by [facility] Automated test strip ID Date Data Source [id number] 12/29/2018 07:53:57 AM EDT [facility] - Good [facility] Name Value Range Interpretation Description Data Sup porting Code Source(s) Document(s ) Leukocytes 26.5 4.8-10.6 Above high normal [facility] - [#/volume] in K/uL Good Blood by Taoist Automated count [facility] Erythrocytes 3.37 4.70-6.0 Below low normal [facility] - [#/volume] in M/uL 0 Good Blood by Taoist Automated count [facility] Hemoglobin 11.4 14.0-18. Below low normal [facility] - [Mass/volume] in g/dL 0 Good Blood [facility] Hematocrit 33.4 % 42.0-52. Below low normal [facility] - [Volume 0 Good Fraction] of Taoist Blood by Hospital Automated count Erythrocyte mean 99.1 FL 81.0-94. Above high normal [facility] - corpuscular 0 Good volume [Entitic Taoist volume] by Hospital Automated count Erythrocyte mean 33.8 PG 27.0-35. [facility] - corpuscular 0 Good hemoglobin Taoist [Entitic mass] [facility] by Automated count Erythrocyte mean 34.1 30.7-37. [facility] - corpuscular g/dL 3 Good hemoglobin Taoist concentration [facility] [Mass/volume] by Automated count Erythrocyte 16.8 % 11.5-14. Above high normal [facility] - distribution 0 Good width [Ratio] by Taoist Automated count [facility] Platelets 207 K/uL 130-400 [facility] - [#/volume] in Good Blood by Taoist Automated count Hospital Platelet mean 11.2 FL 9.2-11.8 [facility] - volume [Entitic Good volume] in Blood Taoist by Automated Hospital count Segmented 90 % 48.0-72. Above high normal [facility] - neutrophils/100 0 Good leukocytes in [facility] Lymphocytes/100 5 % 18.0-40. Below low normal [facility] - leukocytes in 0 [facility] Monocytes/100 5 % 2.0-12.0 [facility] - leukocytes in [facility] Blood [facility] Eosinophils/100 0 % 0.0-7.0 [facility] - leukocytes in [facility] Basophils/100 0 % 0.0-3.0 [facility] - leukocytes in [facility] 1+MACROCYTOSIS1+HYPOCHROMIA Platelet adequacy [facility] - Good [Presence] in Blood by [facility] Light microscopy Differential cell count [facility] Segmented neutrophils 23.8 K/UL 1.5-6.6 Above high normal [facility] - Good [#/volume] in [facility] Lymphocytes [#/volume] 1.4 K/UL 1.5-3.5 Below low normal [facility] - Good in [facility] Monocytes [#/volume] in 1.2 K/UL 0.0-1.0 Above high normal [facility] - Good [facility] Eosinophils [#/volume] 0.0 K/UL 0.0-0.7 [facility] - Good in [facility] Basophils [#/volume] in 0.0 K/UL 0.0-0.1 [facility] - Good [facility] ID Date Data Source [id number] 12/29/2018 05:37:43 AM EDT [facility] - Good [facility] Name Value Range Interpretation Description Data Sup porting Code Source(s) Document(s ) Sodium 133 136-145 Below low normal [facility] - Good [Moles/volume] mmol/L Taoist in Serum or Hospital Plasma Potassium 4.1 3.5-5.1 [facility] - Good [Moles/volume] mmol/L Taoist in Serum or Hospital Plasma Chloride 95 98-107 Below low normal [facility] - Good [Moles/volume] mmol/L Taoist in Serum or Hospital Plasma Carbon 35 21-32 Above high normal [facility] - Good dioxide, total mmol/L Taoist [Moles/volume] Hospital in Serum or Plasma Anion gap in 7 mmol/L 10-20 Below low normal [facility] - Go od Serum or Taoist Plasma Hospital Glucose 146 74-106 Above high normal [facility] - Good [Mass/volume] mg/dL Taoist in Serum or Hospital Plasma Urea nitrogen 13 mg/dL 7-18 [facility] - Good [Mass/volume] Taoist in Serum or Hospital Plasma Creatinine 0.46 0.70-1.3 Below low normal [facility] - Good [Mass/volume] mg/dL 0 Taoist in Serum or Hospital Plasma Glomerular >60 [facility] - Good filtration Taoist rate/1.73 sq M Hospital predicted among blacks [Volume Rate/Area] in Serum or Plasma by Creatinine-bas ed formula (MDRD) Glomerular >60 [facility] - Good filtration Taoist rate/1.73 sq M Hospital predicted among non-blacks [Volume Rate/Area] in Serum or Plasma by Creatinine-bas ed formula (MDRD) Calcium 9.9 8.5-10.1 [facility] - Good [Mass/volume] mg/dL Taoist in Serum or Hospital Plasma Phosphate 2.4 2.5-4.9 Below low normal [facility] - Good [Mass/volume] mg/dL Taoist in Serum or Hospital Plasma Albumin 2.3 g/dL 3.5-4.7 Below low normal [facility] - Good [Mass/volume] Taoist in Serum or Hospital Plasma by Bromocresol purple (BCP) dye binding method ID Date Data Source [id number] 12/29/2018 05:37:43 AM EDT [facility] Name Value Range Interpretation Description Data Sup porting Code Source(s) Document(s ) Magnesium 1.7 mg/dL 1.6-2.6 [facility] - Good [Mass/volume] Taoist in Serum or Hospital Plasma ID Date Data Source [id number] 12/29/2018 02:18:45 AM EDT [facility] Problem: Pneumonia: Day 1Goal: Off Pathw ay (Use only if patient is Off Pathway)Outcome: Progressing Towards Goa lProblem: Pneumonia: Day 1Goal: RespiratoryOutcome: Progressing Towards Goal Name Value Range Interpretation Code Description Data Harriett rce(s) Supporting Document(s ) ID Date Data Source [id number] 12/29/2018 12:48:18 AM EDT [facility] - [facility] Name Value Range Interpretation Description Data Sup porting Code Source(s) Document(s ) Glucose 189 MG/DL 65-110 Above high normal [facility] [Mass/volume] Taoist in Blood by Hospital Automated test strip ID Date Data Source [id number] 12/28/2018 08:56:51 PM EDT [facility] Progress NotePatient: Evelio Carlin Sex: male DOA: 12/12/2018Date of : 1950 Age: 68 y.o. :[id number]:eRyes Carlin is 68 y.o. male who presented with lethargy,cough, fever,hypoxia, meta bolic acidosis and hypothermia from his snf.He has medical history of Dysphagia with recent admission s/p surgical pegplacement on 11/17/18, severe intellec tual disability, Chronic respiratoryfailure, hyperparathyroid unspecified, personal h /o pulmonary embolus, anxietydisorder, kyphosis and schizophreniaPt was admitte d with encounter diag of Acute Respiratory failure withhypercapnia and hypoxia, met abolic acidosis, sepsis poa, Acute COPD exacerbationand dysphagia s/p surgical p lacement of peg,. Also diag of mentally challenged,seizure disorder and hyperpar athyroid.Pt is nonverbal and unable to provide a history.During the interval ; gi requested to see the pt for possible conversionof Peg to J tube in order to make aspirations less likely, less severe.CTA of the LUE on 12/18/18 showed Patent LUE arterial vessels , althoughevauation distally is limited. B/L peural effusions and bib asilar atelectasis.shirft of mediastinal structures to the rt. Pt s/p CT guided l eft thoracentesis on 12/19/18. On gi f/u pt was scheduled for endo placement of a J tube via PEG. Howeverprocedure was rescheduled pending improvement in pt respiratory st atus.Repeat CT Abd /Pelvis dated 12/22/18 showing G-tube in the stomach. Pig tail cathid on the left. The tip appears to be located below the diaphragm although isd ifficult to assess on Ct. There is subcutaneous gas id along the lower ante riorpelvic wall. There is perirectal stranding and presacral edema.On 12/24/18 pt was determined not cleared for PEG placemetn due to AcuteRespiratory Distre ss. Pt was restarted on IV solumedrol. He was cont on IVZosyn.CXR dated 12/25 showi ng small right pleural effusion. Pt wearing Mitts restraints to prevent removal of n vivian canula S/P removal today of Left Pig tail catheterThe pt is awake and alert w earing O2 NC. 3.5 LPM with O2 SAT 95 %.GI noted today. Peg conversion to J tube de cristina again today. Will have to d/wanesthesia if attempt is still desired and resp sta tus without improvement.Pt resting comfortable, wearing O2 NC 4L with O2 SA T 96 %. 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 Pupils are equalThro at: Lips, mucosa, and tongue normal. No ThrushNeck: Supple, symmetrical, no ad enopathy, no carotid bruit and no JVD.Lungs: Clear to auscultation bilaterally. No Wheezing or Rhonchi. No rales.Chest wall: No tenderness or deformity. No Accessory muscle use.Heart: Regular rate and rhythm, no murmur, or rubAbdomen: + abdominal binder, + peg, sofr, non-tender. Not distended. Bowelsounds normal. No cortney sExtremities: Extremities normal, atraumatic, No cyanosis. No edema. No clubbingSkin: Texture, turgor normal. No rashes or lesions. Not JaundicedLymph nodes: Cerv ical, supraclavicular normal.Psych: Not anxious or agitated.Neurologic: EOMs intact. No facial asymmetry. Nonverbal. Generalized weakness,Alert and AwakeGU: Positive swollen scrotum.Intake and Output:Current Shift: No intake/out put data recorded.Last three shifts: 12/27 700 - 12/28 1899In: 75Out: 1600 [Urine: 1600]Lab/Data Reviewed:Recent Days:Recent Labs 12/27/190212/26/18 1130WBC 9.2 8.5 13.7*HGB 11.4* 11.7* 11.9*HCT 35.1* 36.6* 34.9*PLT 241 229 234Recent L abs 12/27/1902NA 137 136 136K 4.6 4.5 4.9CL 96* 97* 99CO2 34* 36* 36*GLU 100 200* 96BUN 19* 19* 15CREA 0.45* 0.53* 0.39*CA 9.5 9.1 9.0MG 1.9 1. 8 1.8PHOS 2.5 2.3* 2.4*ALB 2.2* 2.1* 2.1*No results for input(s): PH, PCO2, PO2, HCO 3, FIO2 in the last 72 hours.CULTURE, BODY FLUID W GRAM STAIN [[id number]] (Order [id number])MicrobiologyDate: 12/19/2018 Department: [address] Released By: Una Johnson RN(auto-released) Authorizing: Mili Hills DOSpecimen Information: Left Component Value Flag Ref Range Units StatusSpecial Requests: FinalNO SPE CIAL REQUESTSGRAM STAIN FEW WBC'S FinalGRAM STAIN NO ORGANISMS SEEN F inalCulture result: NO GROWTH 4 DAYS FinalCULTURE, BLOOD [[id number]] (Order [id number])MicrobiologyDate: 12/23/2018 Department: [address] Released By/ Authorizing: Monica Gomez MD (auto-released)Specimen Information: Blo od Component Value Flag Ref Range Units StatusSpecial Requests: FinalNO SPE CIAL REQUESTSCulture result: NO GROWTH 5 DAYSXr Chest Sngl VResult Date: 9Portable chest x-ray. PRIOR EXAM: X-ray 12/18/2018 HISTORY: Pneumonia FINDINGS:The heart is normal in size. The mediastinum and pulmonary vessels areunremarkable. There is a small right pleural effusion.. A tube projected overthe left upper quadrant of the abdomen..IMPRESSION: Small right pleural effusion.Ct Chest Wo ContResult Date: 12/18/2018Referring Physician: KRYSTIAN MONAE Patient Name: EVELIO CARLIN THIS IS AFINAL REPORT FROM [facility] DATE OF SERVICE: 2018-12-18 01:22:40 IMAGES:555 EXAM: CT CHEST WO CONTRAST HISTORY: .. Right lower lobe atelectasis..TECHNIQUE: Helic al axial imaging from the thoracic inlet through the adrenalglands without contra st. Sagittal and coronal reconstructions were obtained.COMPARISON: CT chest without co ntrast of 12/13/2018. FINDINGS: .. Evaluationremains limited due to lack of IV contrast and patient positioning. The imagedthyroid gland remains atrophic. Th e aorta remains normal in caliber.Atherosclerotic calcifications a re again seen in the aorta. There is againcardiomediastinal shift towards the right. The heart remains normal in size andno pericardial effusion is noted. No obvious lymphadenopathy seen on thisunenhanced scan. No pneumothorax is noted. Since the prior exam there is beenincrease in bilateral pleural effusi ons with associated consolidations. Acalcified granuloma is again seen in th e right lower lobe. The imaged upperabdomen does not demonstrate any gross acute maggy nges. Osteopenia is again noted.Degenerative changes again seen in the imaged spine. Old healed right posteriorlower rib fractures are again seen.IMPRESSION: .. Limited s tudy demonstrating increase in bilateral pleuraleffusions with associated consoli dations with persistent cardiomediastinal shifttowards the right. Stable findings as noted above.. One or more of the followingdose reduction techniques were used: automated exposure control, adjustment ofthe mA and/or kV according to patient size, use of iterative reconstructivetechnique. THIS DOCUMENT H BEEN ELECTRONICALLY SIGNED Kamran Gillette MD 12/18/2018 04:49 IGNA Verde Please call [facility] 1.800.TELERAD([phone]) with questions. This report was electronically signed by: Tala MENDEZ 12/18/2018 04: 50 AMCt Chest Wo ContResult Date: 12/13/2018History: Respiratory difficulty . FINDINGS: CT scanning of the chest wasperformed helically from the lung api martine to the upper abdomen withoutintravenous contrast material. Sagittal and coronal reconstructed images aresubmitted. Scanning was performed utilizing dose lowering te chniques and iscompared to the prior study of 11/08/2018. The study is quite limited by patientpositioning. Evaluation of thoracic vascular structures is limited withoutin travenous contrast material does not reveal evidence of aneurysmal dilatationor defi nite CT evidence of dissection. Coronary artery calcification is seen.There is mi nimal calcification of the aortic arch. There is minimalcalcification of the descendin g thoracic aorta. There is no definite evidence ofany pathologically enlarged l ymph node in the visualized portions of themediastinum or axillae. Evaluation of pulmonary parenchymal structures revealssome atelectatic change in the right upper lo be. There is a small left pleuraleffusion as well as left basilar atelectatic change. There is some patchyopacity within the right middle lobe and right lower lobe which c ould also beinfiltrative in nature. Limited evaluation of upper abdominal structures isunremarkable. There is deviation of mediastinal structures to the right. Thi scould be as result of atelectatic change within the right lung. This has beenseen previously and is unchanged.IMPRESSION: Extremely limited study by patient posit ioning. Deviation ofmediastinal structures to the right as has been seen on prior stud ies. Leftpleural effusion. Bilateral infiltrates and atelectasis, greater on the rightthan the left.Cta Up Ext Lt W ContResult Date: 12/18/2018History: Arm cl audication. FINDINGS: CTA of the left upper extremity wasperformed helically from le ricky of the shoulder through the fingers after theintravenous administration of 119 cc of Isovue. Sagittal, coronal, and 3-Dreconstructed images obtained on an RealtimeBoard workstation are submitted. Noprior studies are available for comparison. Th e left subclavian artery is widelypatent. It is continuous with a widely patent left axillary artery. The axillaryartery is continuous with a widely patent left bra chial artery. The brachialartery bifurcates into a radial and ulnar artery just belo w the elbow. From thispoint distally streak artifact from patient positioning limits evaluation.However, the ulnar artery appears widely patent to the wrist. The radial a rteryis less well opacified but does appear patent to the wrist as well. Anintraosse ous artery also appears patent although it is poorly visualized aswell. The digital ar teries are not visualized on this study. There arebilateralpleural effusions note d both of which are moderate to large. Theeffusion on the left one is larger th an the right. Bibasilar atelectatic changethroughout much of the lower lobes is seen. There is a significant shift ofmediastinal structures to the right. T he liver is decreased in attenuationcompatible with fatty infiltr ation. The spleen is unremarkable. The adrenalglands are normal in appearance. The pancreas is grossly normal as is thegallbladder. A gastrostomy tube is no mikel in situ. The kidneys are unremarkable.There is a midline abdomina l wall hernia containing large and small bowel aswell as mesentery without eviden ce of obstruction. There is some presacralthickening and possibly some fr ee fluid noted. The patient is status post ORIFof the left hip with metallic hardwa re in situ.IMPRESSION: Patent left upper extremity arterial vessels although eval uationdistally is limited. Bilateral pleural effusions and bibasilar atelectasis.Shif t of mediastinal structures to the right.Ct Abd Pelv Wo ContResult Date: 12/21/2018His tory: ? Maturity of g-tube tract Technique: CT of the abdomen and pelvis wasperforme d from the dome of the diaphragm to the pubic symphysis without oral orintravenous con trast with dose lowering techniques. Sagittal and coronalreconstructions were performe d. Evaluation of solid abdominal viscera iscompromised by by the lack of intraven ous contrast. Evaluation of the bowelloops is compromised lack of oral contrast. All C T scans at this facility areperformed using dose optimization technique as appropria te to a performed exam,to include automated exposure control, adjustment of the mA a nd/or kV accordingto patient size (including appropriate matching first site-specific examinations), or use of iterative reconstruction technique. Comparison: CT scanof the chest performed 12/19/18 Findings: There is a small right pleural effusionw ith adjacent atelectasis. There is minimal left pleural fluid with adjacentatelecta sis. There is a pigtail catheter again identified on the left. The exactlocatio n of this catheter is difficult to ascertain benefits above the diaphragmto below the diaphragm. On today's study the tip appears to be located below thediaphragm. There is a small right pleural effusion with adjacent atelectasis.There is a G-tube i dentified in the stomach. The liver, gallbladder, spleen,pancreas, kidneys an d adrenal glands are unremarkable. No abdominal, pelvic oringuinal lymphadenop athy is identified. No free intraperitoneal fluid is noted.There is a ventral wall h ernia containing loops of what appear to be small bowelhowever are difficult to foll ow. There is mild perirectal stranding andpresacral edema correlate clinically. No dilated loops of bowel are identified.There is mild diverticulosis of the colon. The prostate, bladder and seminalvesicles appear unremarkable. The re are streak artifact obscuring portions ofthe pelvis due to a left hip ORIF. The re is subcutaneous gas identified alongthe right lower anterior pelvic wall.IMPRESS ION: There is a G-tube identified in the stomach. There is a tailcatheter identif ied on the left. The tip appears to be located below thediaphragm although is d ifficult to assess on CT. There is a small residualamount of pleural fluid as well as atelectasis along the left diaphragm. Thereis perirectal stranding and presacr al edema.Ct Thoracentesis Insrt Chest TubeResult Date: 12/19/2018History: Pleura l effusion. PROCEDURE: After being informed of the risks,benefits, and potential alt ernatives procedure informed consent was obtained.The patient was placed on the t able in the [id number] decubitus position.CT scanning was performed locat ion was chosen over the left flank. However, dueto the significant amount of patient motion and breathing motion was difficultto accurately assess a location for percuta neous paracentesis. Therefore, thiswas performed manually. After the chosen reg ion was prepped and draped in thenormal sterile fashion using maximum sterile ba rrier technique a lidocaineneedle was placed in the skin. This appeared to be in good position. Lidocainewas then used to anesthetize the skin and subcutaneous ti ssues in this location.Attempts were made to pass an 8 Congolese pigtail catheter throug h this location.However, patient continuous motion was significant as well as excess ivebreathing during the procedure. The catheter was placed at the same interspa ceas well as marked on the prior CT sequence however, due to the excessive patientmot ion the catheter was far more inferior within the chest that on the priorsequences. Th e catheter appeared to enter the hemiabdomen on the left from theleft chest. The cath eter was then pulled back to position where clear yellowfluid was aspirated. It was then sewn in position However, It appeared tomigrate forward and on the CT scanning appeared to again transgress thediaphragm. It was therefore pulled back to a point where only a clear fluid wasaspirated and respiratory variation was noted within t he tube. It was then sewnin position using 2-0 silk sutures. FINDINGS: Initial CT s debora revealed amoderate left pleural effusion. Attempts to nancy an adequate l ocation forpercutaneous thoracentesis were quite limited due to excessive patient m otionand breathing throughout the procedure. A location that appear to be a safelocat ion was marked. However, when the catheter was placed in this sameinterspace as wel l as marked the catheter appeared to be far more inferiorwithin the hemithorax than that seen previously. It appeared to enter the lefthemithorax inferiorly and transg ress the diaphragm with no evidence pathologicsequela. Therefore, it was pul led back into the pleural space for adequatedrainage. 130 cc of lightly bloo d-tinged fluid was aspirated. The catheter wasattached to a Pleur-evac and wall suc tion.IMPRESSION: Left-sided thoracentesis described above.Xr Chest PortResult Date : 12/18/2018Portable chest x-ray. PRIOR EXAM: 12/12/2018 and 11/25/2018 HISTORY: Pneumon ia andpleural effusions FINDINGS: The heart is normal in size. The mediastinum andpu lmonary vessels are unremarkable. There is haziness within the lung basesbilaterall y... The bony structures are intact.IMPRESSION: Haziness within the l eunice bases bilaterally that could representsmall pleural effusions and/or subsegmental atelectasis. Similar findings wereseen on prior exams.Xr Chest PortRes ult Date: 12/13/2018History: Respiratory difficulty. FINDINGS: A frontal portable view of the chestis compared to the prior study from earlier in the same day. EKG leads overliethe chest. The cardiac silhouette is normal in size. The left l eunice is clear. Theright lung is poorly evaluated due to significant rotation. T he possibility ofright basilar infiltrate or atelectatic change cannot be excluded. M ediastinaland hilar structures are poorly evaluated as well.IMPRESSION: Study quit e limited due to rotation. Opacity at the right lung basemay be infiltrative or at electatic in nature.Xr Chest PortResult Date: 12/12/2018History: Fever. Lethargy. FINDI NGS: 2 frontal views of the chest are compared tothe prior study of 11/25/2018. EKG leads overlie the chest. The cardiacsilhouette is normal in size. The re may be some streaky changes at the lungbases. Evaluation of the lungs and m ediastinal structures is quite limited dueto rotation.IMPRESSION: Study quite limited by rotation. Basilar streaks noted.Duplex Upper Ext Venous LeftResult Date: 019DUPLEX UPPER EXT VENOUS LEFT Clinical Data: Arm swelling, DVT suspectedFinding s: The visualized segments of the left upper extremity venous circulationfrom the lev el of the subclavian vein to the brachial vein is compressible andshows normal pha sic flow without an intraluminal thrombus. In addition, theinternal jugular vein an d the basilic vein is also patent. Extremely limitedexam because the patient was unab le to cooperate and this was done in a portablefashion.IMPRESSION: No evidence of deep vein thrombosis within the visualized left upperextremity venous circulation. Limited study.Medications reviewedCurrent Facility-Administered MedicationsMedicat ion Dose Route Frequency valACYclovir (VALTREX) tablet 1,000 mg 1,000 mg Per G Tube Q12H methylPREDNISolone (PF) (SOLU-MEDROL) injection 20 mg 20 mg Int raVENous Q12H dextrose 5% infusion 50 mL/hr IntraVENous CONTINUOUS haloperidol lact ate (HALDOL) injection 2 mg 2 mg IntraVENous Q6H PRN acetaminophen (TYLENOL) solutio n 650 mg 650 mg Per NG tube Q4H PRN albuterol-ipratropium (DUO-NEB) 2.5 MG-0 .5 MG/3 ML 3 mL Nebulization Q4H PRN potassium, sodium phosphates (NEUTRA-JOCY S) packet 1 Packet 1 Packet Oral QID acetylcysteine (MUCOMYST) 100 mg/mL (10 %) nebulizer solution 200 mg 2 mLNebulization BID RT albuterol-ipratro pium (DUO-NEB) 2.5 MG-0.5 MG/3 ML 3 mL Nebulization Q6H RT bacitracin 500 unit /gram packet 1 Packet 1 Packet Topical BID budesonide (PULMICORT) 500 mcg/2 ml nebu lizer suspension 500 mcg NebulizationBID RT lamoTRIgine (LaMICtal) tablet 50 mg 50 mg Per G Tube BID valproic acid (as sodium salt) (DEPAKENE) 250 mg/5 mL (5 mL) oral solution 750mg 750 mg Per G Tube BID cinacalcet (SENSIPAR) tablet 60 mg 60 m g Oral DAILY pantoprazole (PROTONIX) granules for oral suspension 40 mg 40 m g Per G TubeACB heparin (porcine) injection 5,000 Units 5,000 Units SubCUTAneous Q1 2H sodium chloride (NS) flush 5-10 mL 5-10 mL IntraVENous PRNAssessment/Plan:Hospit al Problems Date Reviewed: 12/28/2018 Codes Class Noted POA Sepsis due to unde termined organism (HCC) ICD-10-CM: A41.9ICD-9-CM: 038.9 12/12/2018 Unknown Pneumonia ICD-10-CM: J18.9ICD-9-CM: 486 11/08/2018 UnknownAssessment:Sepsis - poa Aspiration PneumoniaAcute respiratory failure with Hypoxia andHypercapniaAcute COPD ex acerbationDysphagia s/p surgical placed pegPleural EffusionFluid overloadLeukocy tosis likely steroid inducedMentally challengedSeizureHyperparathyroidPlan: IV zosyn DCO2 NC/ Nightly BIPAP Pulmonary follow up nutrition f/u culturesnebuliz ersGive Lasix 20 mg iv x 1 dose Off steroids S/P removal of Left pig tail catheterCar josé luis f/u cont officer captain medications D/W the pmo lead and pt 's RN suggest a tri al of bolusTF to reduce risk of aspiration.from the continuous TF - -S sarah [place], DOSept2018Time: 8:35 PM Name Value Range Interpretation Code Description Data Harriett rce(s) Supporting Document(s ) ID Date Data Source [id number] 12/28/2018 08:39:27 PM EDT [facility] Progress NotePatient: Evelio Carlin Sex: male DOA: 12/12/2018Date of : 1950 Age: 68 y.o. :[id number]:Reyes Carlin is 68 y.o. male who presented with lethargy,cough, fever,hypoxia, meta bolic acidosis, and hypothermia.He has medical history of Dysphagia with recent admission s/p surgical pegplacement on 11/17/18, severe intellectual disability, Chronic respiratoryfailure, hyperparathyroid unspecified, personal h/o pulmonary embo aspen, anxietydisorder, kyphosis and schizophreniaPt was admitted with encoun ter diag of Acute Respiratory failure withhypercapnia and hypoxia, metabolic a cidosis, sepsis poa, Acute COPD exacerbationand dysphagia s/p surgical p lacement of peg,. Also diag of mentally challenged,seizure disorder and hyperpar athyroid.Pt is nonverbal and unable to provide a history.During the interval ; gi requested to see the pt for possible conversion of Pegto J tube in order to make aspirations less likely, less severe.CTA of the LUE on 12/18/18 showed Patent LUE arterial vessels , althoughevauation distally is limited. B/L peural effusions and bib asilar atelectasis.shirft of mediastinal structures to the rt. Pt s/p CT guided l eft thoracentesis on 12/19/18. On gi f/u pt was scheduled for endo placement of a J tube via PEG. Howeverprocedure was rescheduled pending improvement in pt respiratory st atus.Repeat CT Abd /Pelvis dated 12/22/18 showing G-tube in the stomach. Pig tail cathid on the left. The tip appears to be located below the diaphragm although isd ifficult to assess on Ct. There is subcutaneous gas id along the lower ante riorpelvic wall. There is perirectal stranding and presacral edema.On 12/24/18 pt was determined not cleared for PEG placemetn due to AcuteRespiratory Distre ss. Pt was restarted on IV solumedrol. He was cont on IVZosyn.CXR dated 12/25 showi ng small right pleural effusion. Pt wearing Mitts restraints to prevent removal of n vivian canula S/P removal today of Left Pig tail catheterThe pt is awake and alert w earing O2 NC. 3.5 LPM with O2 SAT 95 %.GI noted today. Peg conversion to J tube de cristina again today. 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 Pupils are equalNose: Nares normal. No drainage or sinus tende rness.Throat: Lips, mucosa, and tongue normal. No ThrushNeck: Supple, symmetr ical, no adenopathy, thyroid: non tender no carotid bruit and no JVD.Back: Symmet rodger, No CVA tenderness.Lungs: Clear to auscultation bilaterally. No Wheezing o r Rhonchi. No rales.Chest wall: No tenderness or deformity. No Accessory mu scle use.Heart: Regular rate and rhythm, no murmur, rub or gallop.Abdomen: Soft , non-tender. Not distended. Bowel sounds normal. No massesExtremities: Extremitie s normal, atraumatic, No cyanosis. No edema. No clubbingSkin: Texture, turgor nor mal. No rashes or lesions. Not JaundicedLymph nodes: Cervical, supracla vicular normal.Psych: Good insight. Not depressed. Not anxious or agitated.Neur ologic: EOMs intact. No facial asymmetry. No aphasia or slurred speech.Normal stren gth, Alert and oriented X 3.Intake and Output:Current Shift: No intake/output data recorded.Last three shifts: 12/25 1900 - 12/27 0700In: 1960 [I.V.:600]Out: 4525 [Urine:3450; Drains:25]Lab/Data Reviewed:Recent Days:Recent Labs 130WBC 8.5 13.7*HGB 11.7* 11.9*HCT 36.6* 34.9*PLT 229 234Recent La bs 12/26/1902NA 136 136 -- 139K 4.5 4.9 -- 4.8CL 97* 99 -- 99CO2 36* 36* 39* 34*GLU 200* 96 -- 182*BUN 19* 15 -- 12CREA 0.53* 0.39* -- 0.44*CA 9.1 9.0 -- 9.0MG 1.8 1.8 -- 2.1PHOS 2.3* 2.4* -- 3.0ALB 2.1* 2.1* -- 1.9*Recent Labs 09/12/538806FT 7.47*PCO2 51*PO2 67*HCO3 37*Xr Chest Sngl VResult Date: 12/25/2018Portable chest x-ray. PRIOR EXA M: X-ray 12/18/2018 HISTORY: Pneumonia FINDINGS:The heart is normal in size. Th e mediastinum and pulmonary vessels areunremarkable. There is a small right pleural effusion.. A tube projected overthe left upper quadrant of the abdomen..IMPR ESSION: Small right pleural effusion.Ct Chest Wo ContResult Date: 12/18/2018Referring Ph ysician: KRYSTIAN MONAE Patient Name: EVELIO CARLIN THIS IS AFINAL REPORT FROM [facility] DATE OF SERVICE: 2018-12-18 01:22:40 IMAGES:555 EXAM: CT CHEST WO CO NTRAST HISTORY: .. Right lower lobe atelectasis..TECHNIQUE: Helical axial im aging from the thoracic inlet through the adrenalglands without contrast. Sagittal and coronal reconstructions were obtained.COMPARISON: CT chest without co ntrast of 12/13/2018. FINDINGS: .. Evaluationremains limited due to lack of IV contrast and patient positioning. The imagedthyroid gland remains atrophic. Th e aorta remains normal in caliber.Atherosclerotic calcifications a re again seen in the aorta. There is againcardiomediastinal shift towards the right. The heart remains normal in size andno pericardial effusion is noted. No obvious lymphadenopathy seen on thisunenhanced scan. No pneumothorax is noted. Since the prior exam there is beenincrease in bilateral pleural effusi ons with associated consolidations. Acalcified granuloma is again seen in th e right lower lobe. The imaged upperabdomen does not demonstrate any gross acute maggy nges. Osteopenia is again noted.Degenerative changes again seen in the imaged spine. Old healed right posteriorlower rib fractures are again seen.IMPRESSION: .. Limited s tudy demonstrating increase in bilateral pleuraleffusions with associated consoli dations with persistent cardiomediastinal shifttowards the right. Stable findings as noted above.. One or more of the followingdose reduction techniques were used: automated exposure control, adjustment ofthe mA and/or kV according to patient size, use of iterative reconstructivetechnique. THIS DOCUMENT H BEEN ELECTRONICALLY SIGNED Kamran Gillette MD 12/18/2018 04:49 GINA Verde Please call [facility] Consult[facility] [phone].TELERAD([phone]) with questions. This report was electronically signed by: Tala MENDEZ 12/18/2018 04: 50 [facility] [place] Chest Wo ContResult Date: 12/13/2018History: Respiratory difficulty . FINDINGS: CT scanning of the chest wasperformed helically from the lung api martine to the upper abdomen withoutintravenous contrast material. Sagittal and coronal reconstructed images aresubmitted. Scanning was performed utilizing dose lowering te chniques and iscompared to the prior study of 11/08/2018. The study is quite limited by patientpositioning. Evaluation of thoracic vascular structures is limited withoutin travenous contrast material does not reveal evidence of aneurysmal dilatationor defi nite CT evidence of dissection. Coronary artery calcification is seen.There is mi nimal calcification of the aortic arch. There is minimalcalcification of the descendin g thoracic aorta. There is no definite evidence ofany pathologically enlarged l ymph node in the visualized portions of themediastinum or axillae. Evaluation of pulmonary parenchymal structures revealssome atelectatic change in the right upper lo be. There is a small left pleuraleffusion as well as left basilar atelectatic change. There is some patchyopacity within the right middle lobe and right lower lobe which c ould also beinfiltrative in nature. Limited evaluation of upper abdominal structures isunremarkable. There is deviation of mediastinal structures to the right. Thi scould be as result of atelectatic change within the right lung. This has beenseen previously and is unchanged.IMPRESSION: Extremely limited study by patient posit ioning. Deviation ofmediastinal structures to the right as has been seen on prior stud ies. Leftpleural effusion. Bilateral infiltrates and atelectasis, greater on the rightthan the left.Cta Up Ext Lt W ContResult Date: 12/18/2018History: Arm cl audication. FINDINGS: CTA of the left upper extremity wasperformed helically from le ricky of the shoulder through the fingers after theintravenous administration of 119 cc of Isovue. Sagittal, coronal, and 3-Dreconstructed images obtained on an RealtimeBoard workstation are submitted. Noprior studies are available for comparison. Th e left subclavian artery is widelypatent. It is continuous with a widely patent left axillary artery. The axillaryartery is continuous with a widely patent left bra chial artery. The brachialartery bifurcates into a radial and ulnar artery just belo w the elbow. From thispoint distally streak artifact from patient positioning limits evaluation.However, the ulnar artery appears widely patent to the wrist. The radial a rteryis less well opacified but does appear patent to the wrist as well. Anintraosse ous artery also appears patent although it is poorly visualized aswell. The digital ar teries are not visualized on this study. There arebilateralpleural effusions note d both of which are moderate to large. Theeffusion on the left one is larger th an the right. Bibasilar atelectatic changethroughout much of the lower lobes is seen. There is a significant shift ofmediastinal structures to the right. T he liver is decreased in attenuationcompatible with fatty infiltr ation. The spleen is unremarkable. The adrenalglands are normal in appearance. The pancreas is grossly normal as is thegallbladder. A gastrostomy tube is no mikel in situ. The kidneys are unremarkable.There is a midline abdomina l wall hernia containing large and small bowel aswell as mesentery without eviden ce of obstruction. There is some presacralthickening and possibly some fr ee fluid noted. The patient is status post ORIFof the left hip with metallic hardwa re in situ.IMPRESSION: Patent left upper extremity arterial vessels although eval uationdistally is limited. Bilateral pleural effusions and bibasilar atelectasis.Shif t of mediastinal structures to the right.Ct Abd Pelv Wo ContResult Date: 12/21/2018His tory: ? Maturity of g-tube tract Technique: CT of the abdomen and pelvis wasperforme d from the dome of the diaphragm to the pubic symphysis without oral orintravenous con trast with dose lowering techniques. Sagittal and coronalreconstructions were performe d. Evaluation of solid abdominal viscera iscompromised by by the lack of intraven ous contrast. Evaluation of the bowelloops is compromised lack of oral contrast. All C T scans at this facility areperformed using dose optimization technique as appropria te to a performed exam,to include automated exposure control, adjustment of the mA a nd/or kV accordingto patient size (including appropriate matching first site-specific examinations), or use of iterative reconstruction technique. Comparison: CT scanof the chest performed 12/19/18 Findings: There is a small right pleural effusionw ith adjacent atelectasis. There is minimal left pleural fluid with adjacentatelecta sis. There is a pigtail catheter again identified on the left. The exactlocatio n of this catheter is difficult to ascertain benefits above the diaphragmto below the diaphragm. On today's study the tip appears to be located below thediaphragm. There is a small right pleural effusion with adjacent atelectasis.There is a G-tube i dentified in the stomach. The liver, gallbladder, spleen,pancreas, kidneys an d adrenal glands are unremarkable. No abdominal, pelvic oringuinal lymphadenop athy is identified. No free intraperitoneal fluid is noted.There is a ventral wall h ernia containing loops of what appear to be small bowelhowever are difficult to foll ow. There is mild perirectal stranding andpresacral edema correlate clinically. No dilated loops of bowel are identified.There is mild diverticulosis of the colon. The prostate, bladder and seminalvesicles appear unremarkable. The re are streak artifact obscuring portions ofthe pelvis due to a left hip ORIF. The re is subcutaneous gas identified alongthe right lower anterior pelvic wall.IMPRESS ION: There is a G-tube identified in the stomach. There is a tailcatheter identif ied on the left. The tip appears to be located below thediaphragm although is d ifficult to assess on CT. There is a small residualamount of pleural fluid as well as atelectasis along the left diaphragm. Thereis perirectal stranding and presacr al edema.Ct Thoracentesis Insrt Chest TubeResult Date: 12/19/2018History: Pleura l effusion. PROCEDURE: After being informed of the risks,benefits, and potential alt ernatives procedure informed consent was obtained.The patient was placed on the t able in the [id number] decubitus position.CT scanning was performed locat ion was chosen over the left flank. However, dueto the significant amount of patient motion and breathing motion was difficultto accurately assess a location for percuta neous paracentesis. Therefore, thiswas performed manually. After the chosen reg ion was prepped and draped in thenormal sterile fashion using maximum sterile ba rrier technique a lidocaineneedle was placed in the skin. This appeared to be in good position. Lidocainewas then used to anesthetize the skin and subcutaneous ti ssues in this location.Attempts were made to pass an 8 Congolese pigtail catheter throug h this location.However, patient continuous motion was significant as well as excess ivebreathing during the procedure. The catheter was placed at the same interspa ceas well as marked on the prior CT sequence however, due to the excessive patientmot ion the catheter was far more inferior within the chest that on the priorsequences. Th e catheter appeared to enter the hemiabdomen on the left from theleft chest. The cath eter was then pulled back to position where clear yellowfluid was aspirated. It was then sewn in position However, It appeared tomigrate forward and on the CT scanning appeared to again transgress thediaphragm. It was therefore pulled back to a point where only a clear fluid wasaspirated and respiratory variation was noted within t he tube. It was then sewnin position using 2-0 silk sutures. FINDINGS: Initial CT s debora revealed amoderate left pleural effusion. Attempts to nancy an adequate l ocation forpercutaneous thoracentesis were quite limited due to excessive patient m otionand breathing throughout the procedure. A location that appear to be a safelocat ion was marked. However, when the catheter was placed in this sameinterspace as wel l as marked the catheter appeared to be far more inferiorwithin the hemithorax than that seen previously. It appeared to enter the lefthemithorax inferiorly and transg ress the diaphragm with no evidence pathologicsequela. Therefore, it was pul led back into the pleural space for adequatedrainage. 130 cc of lightly bloo d-tinged fluid was aspirated. The catheter wasattached to a Pleur-evac and wall suc tion.IMPRESSION: Left-sided thoracentesis described above.Xr Chest PortResult Date : 12/18/2018Portable chest x-ray. PRIOR EXAM: 12/12/2018 and 11/25/2018 HISTORY: Pneumon ia andpleural effusions FINDINGS: The heart is normal in size. The mediastinum andpu lmonary vessels are unremarkable. There is haziness within the lung basesbilaterall y... The bony structures are intact.IMPRESSION: Haziness within the l eunice bases bilaterally that could representsmall pleural effusions and/or subsegmental atelectasis. Similar findings wereseen on prior exams.Xr Chest PortRes ult Date: 12/13/2018History: Respiratory difficulty. FINDINGS: A frontal portable view of the chestis compared to the prior study from earlier in the same day. EKG leads overliethe chest. The cardiac silhouette is normal in size. The left l eunice is clear. Theright lung is poorly evaluated due to significant rotation. T he possibility ofright basilar infiltrate or atelectatic change cannot be excluded. M ediastinaland hilar structures are poorly evaluated as well.IMPRESSION: Study quit e limited due to rotation. Opacity at the right lung basemay be infiltrative or at electatic in nature.Xr Chest PortResult Date: 12/12/2018History: Fever. Lethargy. FINDI NGS: 2 frontal views of the chest are compared tothe prior study of 11/25/2018. EKG leads overlie the chest. The cardiacsilhouette is normal in size. The re may be some streaky changes at the lungbases. Evaluation of the lungs and m ediastinal structures is quite limited dueto rotation.IMPRESSION: Study quite limited by rotation. Basilar streaks noted.Duplex Upper Ext Venous LeftResult Date: 019DUPLEX UPPER EXT VENOUS LEFT Clinical Data: Arm swelling, DVT suspectedFinding s: The visualized segments of the left upper extremity venous circulationfrom the lev el of the subclavian vein to the brachial vein is compressible andshows normal pha sic flow without an intraluminal thrombus. In addition, theinternal jugular vein an d the basilic vein is also patent. Extremely limitedexam because the patient was unab le to cooperate and this was done in a portablefashion.IMPRESSION: No evidence of deep vein thrombosis within the visualized left upperextremity venous circulation. Limited study.Medications reviewedCurrent Facility-Administered MedicationsMedicat ion Dose Route Frequency valACYclovir (VALTREX) tablet 1,000 mg 1,000 mg Per G Tube Q12H methylPREDNISolone (PF) (SOLU-MEDROL) injection 20 mg 20 mg Int raVENous Q12H dextrose 5% infusion 50 mL/hr IntraVENous CONTINUOUS haloperidol lact ate (HALDOL) injection 2 mg 2 mg IntraVENous Q6H PRN acetaminophen (TYLENOL) solutio n 650 mg 650 mg Per NG tube Q4H PRN albuterol-ipratropium (DUO-NEB) 2.5 MG-0 .5 MG/3 ML 3 mL Nebulization Q4H PRN potassium, sodium phosphates (NEUTRA-JOCY S) packet 1 Packet 1 Packet Oral QID acetylcysteine (MUCOMYST) 100 mg/mL (10 %) nebulizer solution 200 mg 2 mLNebulization BID RT albuterol-ipratro pium (DUO-NEB) 2.5 MG-0.5 MG/3 ML 3 mL Nebulization Q6H RT bacitracin 500 unit /gram packet 1 Packet 1 Packet Topical BID budesonide (PULMICORT) 500 mcg/2 ml nebu lizer suspension 500 mcg NebulizationBID RT lamoTRIgine (LaMICtal) tablet 50 mg 50 mg Per G Tube BID valproic acid (as sodium salt) (DEPAKENE) 250 mg/5 mL (5 mL) oral solution 750mg 750 mg Per G Tube BID cinacalcet (SENSIPAR) tablet 60 mg 60 m g Oral DAILY pantoprazole (PROTONIX) granules for oral suspension 40 mg 40 m g Per G TubeACB heparin (porcine) injection 5,000 Units 5,000 Units SubCUTAneous Q1 2H sodium chloride (NS) flush 5-10 mL 5-10 mL IntraVENous PRNAssessment/Plan:Hospit al Problems Date Reviewed: 12/27/2018 Codes Class Noted POA Sepsis due to unde termined organism (HCC) ICD-10-CM: A41.9ICD-9-CM: 038.9 12/12/2018 Unknown Pneumonia ICD-10-CM: J18.9ICD-9-CM: 486 11/08/2018 UnknownAssessment:Sepsis - poa Aspiration PneumoniaAcute respiratory failure with Hypoxia andHypercapniaAcute COPD ex acerbationDysphagia s/p surgical placed pegPleural EffusionFluid overloadLeukocy tosis likely steroid inducedMentally challengedSeizureHyperparathyroid -Jocelyn n:IV zosyn per IDO2 NC/ Nightly BIPAP Pulmonary follow up nutrition f/u cultu resnebulizersGive Lasix 20 mg iv x 1 dose Off steroids S/P removal of Left pig tail ca theterCardio f/u cont officer captain medications D/W the pmo lead and pt 's RN suggest a tr ial of bolusTF to reduce risk of aspiration.from the continuous TFSsarah America Hillspt2018Time: 4:46 PM Name Value Range Interpretation Code Description Data [facility] rce(s) Supporting Document(s ) ID Date Data Source [id number] 12/28/2018 07:44:55 PM EDT [facility] Bedside and Verbal shift change report carol pham to Ranjit RN (oncoming nurse) Niyah Israel RN(offgoing nurse). Report given with SBAR, Kardex, Intake/Output, MAR and RecentResults. Name Value Range Interpretation Code Description Data [facility] Supporting [facility] ) ID Date Data Source [id number] 12/28/2018 06:05:16 PM EDT [facility] Name Value Range Interpretation Description Data Sup porting Code Source(s) Document(s ) Glucose 103 MG/DL 65-110 [facility] [Mass/volume] [facility] in Blood by Hospital Automated test strip ID Date Data Source [id number] 12/28/2018 05:41:52 PM EDT [facility] Progress NoteMID-[facility] ,[facility].Krystian Monae MD., F.C.C.P.Stella Hamilton MD., F.C.C.P. [address] [place] [id number] [place] [address] [phone]: Evelio Carlin Sex: male DOA: 12/12/2018Da te of : 1950 Age: 68 y.o. LOS: LOS: 16 daysSubjective:Mr. Maximiliano mata is a 68 y.o. year old male who is being seen forLEFT PLEURAL CATH IS DIS CONTINUED \\PATIENT IS COMFORTABLE ..Objective:Vital Signs:Patient Vitals f or the past 24 hrs: BP Temp Pulse Resp SpO2 Kvddrl40/15/19 1526 93/51 97.5 F (36.4 C) - 18 98 % -12/28/18 1319 - - - - 97 % -12/28/18 1128 107/56 97.2 F (36.2 C) 82 18 90 % -12/28/18 0755 - - - - 92 % -12/28/18 0728 108/65 99.4 F (37.4 C) 80 18 92 % -12/28/18 0652 - - - - - 52 kg (114 lb 11.2 oz)12/28/18 0429 102/63 98. 1 F (36.7 C) (!) 56 18 98 % -12/28/18 0210 - - - - 97 % -12/28/18 0053 99/76 98.1 F (36.7 C) 76 30 98 % -12/27/18 2103 98/61 98.4 F (36.9 C) 89 18 91 % -12/27/18 1 929 - - - - 95 % -Pulse OX:SpO2 Readings from Last 6 Encounters:12/28/18 98%11/27/18 9 1%09/26/15 96%@LASTSAO2(6)@Physical Exam: General: Alert, cooperative, LESS RESPIRATORY distress, appearsstated age. Head: Normocephalic, without ob vious abnormality, atraumatic. Eyes: Conjunctivae/corneas clear. PERR L, EOMs intact. Nose: Nares normal. No drainage or sinus tenderness Throat: Lips, mucosa, and tongue normal Neck: Supple, symmet rical, trachea midline, no adenopathy,thyroid: no enlargem ent/tenderness/nodules, no carotid bruit and no JVD. Lungs: RALES DECREAS ED , WHEEZING ARE LESS to auscultationbilaterally. Chest Wall: No tenderness or deformity. Heart: Regular rate and rhythm, S1, S2 normal, no murmur, click,rub or gallop. Abdomen: Soft, non-tender. Bowel sounds normal. No masses, No organomegaly. Extremities: Extremities normal, atraumatic, no cyano sis or edema. Pulses: 4+ bilaterally. Skin: Skin co nirali, texture, turgor normal. No rashes or lesions. Neurologic: CNII-XII intact. No focal motor or sensory deficit.Intake and Output:Last three shifts: 12/26 1901 - 12/28 0700In: 610 [I.V.:400]Out: 1600 [Urine:1600]Lab Results:Recent Results ( from the past 24 hour(s))GLUCOSE, POC Collection Time: 12/27/18 5:45 PMResult Value Ref Range Glucose, bedside 96 65 - 110 MG/DLGLUCOSE, POC Collection Time: 12/28 12:29 AMResult Value Ref Range Glucose, bedside 141 (H) 65 - 110 MG/DLRENAL FUNC TION PANEL Collection Time: 12/28/18 3:21 AMResult Value Ref Range Sodium 137 136 - 145 mmol/L Potassium 4.6 3.5 - 5.1 mmol/L Chloride 96 (L) 98 - 107 mmol/L CO2 34 ( H) 21 - 32 mmol/L Anion gap 11 10 - 20 mmol/L Glucose 100 74 - 106 mg/dL BUN 19 (H) 7 - 18 mg/dL Creatinine 0.45 (L) 0.70 - 1.30 mg/dL GFR est AA >60 >60 ml/min/1.73m2 G FR est non-AA >60 >60 ml/min/1.73m2 Calcium 9.5 8.5 - 10.1 mg/dL Phosphorus 2.5 2.5 - 4.9 mg/dL Albumin 2.2 (L) 3.5 - 4.7 g/dLMAGNESIUM Collection Time: 12/28/18 3:21 AMResult Value Ref Range Magnesium 1.9 1.6 - 2.6 mg/dLCBC WITH AUTOMATED DIFF C ollection Time: 12/28/18 3:21 AMResult Value Ref Range WBC 9.2 4.8 - 10.6 K/uL RBC 3. 44 (L) 4.70 - 6.00 M/uL HGB 11.4 (L) 14.0 - 18.0 g/dL HCT 35.1 (L) 42.0 - 52.0 % MCV 102.0 (H) 81.0 - 94.0 FL MCH 33.1 27.0 - 35.0 PG MCHC 32.5 30.7 - 37.3 g/dL RDW 1 6.6 (H) 11.5 - 14.0 % PLATELET 241 130 - 400 K/uL MPV 9.9 9.2 - 11.8 FL NEUTROPHILS 8 5 (H) 48.0 - 72.0 % LYMPHOCYTES 9 (L) 18.0 - 40.0 % MONOCYTES 6 2.0 - 12.0 % EOSINOPH ILS 0 0.0 - 7.0 % BASOPHILS 0 0.0 - 3.0 % ABS. NEUTROPHILS 7.8 (H) 1.5 - 6.6 K/UL ABS. LYMPHOCYTES 0.8 (L) 1.5 - 3.5 K/UL ABS. MONOCYTES 0.6 0.0 - 1.0 K/UL ABS. EOSINO PHILS 0.0 0.0 - 0.7 K/UL ABS. BASOPHILS 0.0 0.0 - 0.1 K/UL DF AUTOMATED IMMATURE GRA NULOCYTES 0 0.0 - 2.0 %GLUCOSE, POC Collection Time: 12/28/18 6:10 AMResult Value Ref Range Glucose, bedside 90 65 - 110 MG/DLGLUCOSE, POC Collection Time: 12/28 11:51 AMResult Value Ref Range Glucose, bedside 86 65 - 110 MG/DLABG:No results for input(s): PH, PCO2, PO2, HCO3, FIO2 in the last 72 hours.Recent Glucose Results :Lab ResultsComponent Value Date/Time GLU 100 12/28/2018 03:21 AM GLUCPOC 86 9 11:51 AM GLUCPOC 90 12/28/2018 06:10 AM GLUCPOC 141 (H) 12/28/2018 12:29 AM@LABA PCYTOINTERPRETATION@CULTURESAll Micro Results Procedure Component Value Units Date/Patria e CULTURE, BLOOD [[id number]] Collected: 12/23/18 1200 Order Status: Completed S pecimen: Blood Updated: 12/28/18 0702 Special Requests: NO SPECIAL REQUESTS C ulture result: NO GROWTH 5 DAYS CULTURE, BLOOD [[id number]] Collected: 12/23/18 1 140 Order Status: Completed Specimen: Blood Updated: 12/28/18 0702 Special Request s: NO SPECIAL REQUESTS Culture result: NO GROWTH 5 DAYS CULTURE, URINE [[id number]] Collected: 12/24/18 0945 Order Status: Completed Specimen: Cath Urine Updated: 12/26/18 1146 Special Requests: NO SPECIAL REQUESTS Culture result: NO GROWTH 2 DA YS CULTURE, ANAEROBIC [[id number]] Collected: 12/19/18 1230 Order Status: Completed S pecimen: Thoracentesis Updated: 12/24/18 1421 Special Requests: NO SPECIAL REQUE STS Culture result: NO GROWTH 4 DAYS CULTURE, BODY FLUID W GRAM STAIN [[id number]] Collected: 12/19/18 1230 Order Status: Completed Specimen: Left Updated: 12/14 1317 Special Requests: NO SPECIAL REQUESTS GRAM STAIN FEW WBC'S NO ORGA NISMS SEEN Culture result: NO GROWTH 4 DAYS CULTURE, BLOOD [[id number]] Collected: 0 12/12/181939 Order Status: Completed Specimen: Blood Updated: 12/17/18642 Special Requests: NO SPECIAL REQUESTS Culture result: NO GROWTH 5 DAYS CULTURE , BLOOD [[id number]] Collected: 12/12/181939 Order Status: Completed Specimen: Bloo d Updated: 12/17/18642 Special Requests: NO SPECIAL REQUESTS Culture result: NO GROWTH 5 DAYS CULTURE, URINE [[id number]] Collected: 12/12/182003 Order Status: Completed Specimen: Urine Updated: 12/14/18913 Special Requests: NO SPEC IAL REQUESTS Culture result: NO GROWTH 1 DAY CULTURE, URINE [[id number]] Collected: 0 12/12/181929 Order Status: Canceled Specimen: Cath UrineImages:@[email or web address] D@Xr Chest Sngl VResult Date: 12/25/2018Portable chest x-ray. PRIOR EXA M: X-ray 12/18/2018 HISTORY: Pneumonia FINDINGS:The heart is normal in size. Th e mediastinum and pulmonary vessels areunremarkable. There is a small right pleural effusion.. A tube projected overthe left upper quadrant of the abdomen..IMPR ESSION: Small right pleural effusion.Ct Chest Wo ContResult Date: 12/18/2018Referring Ph ysician: KRYSTIAN MONAE Patient Name: EVELIO CARLIN THIS IS AFINAL REPORT FROM [facility] DATE OF SERVICE: 2018-12-18 01:22:40 IMAGES:555 EXAM: CT CHEST WO CO NTRAST HISTORY: .. Right lower lobe atelectasis..TECHNIQUE: Helical axial im aging from the thoracic inlet through the adrenalglands without contrast. Sagittal and coronal reconstructions were obtained.COMPARISON: CT chest without co ntrast of 12/13/2018. FINDINGS: .. Evaluationremains limited due to lack of IV contrast and patient positioning. The imagedthyroid gland remains atrophic. Th e aorta remains normal in caliber.Atherosclerotic calcifications a re again seen in the aorta. There is againcardiomediastinal shift towards the right. The heart remains normal in size andno pericardial effusion is noted. No obvious lymphadenopathy seen on thisunenhanced scan. No pneumothorax is noted. Since the prior exam there is beenincrease in bilateral pleural effusi ons with associated consolidations. Acalcified granuloma is again seen in th e right lower lobe. The imaged upperabdomen does not demonstrate any gross acute maggy nges. Osteopenia is again noted.Degenerative changes again seen in the imaged spine. Old healed right posteriorlower rib fractures are again seen.IMPRESSION: .. Limited s tudy demonstrating increase in bilateral pleuraleffusions with associated consoli dations with persistent cardiomediastinal shifttowards the right. Stable findings as noted above.. One or more of the followingdose reduction techniques were used: automated exposure control, adjustment ofthe mA and/or kV according to patient size, use of iterative reconstructivetechnique. THIS DOCUMENT H BEEN ELECTRONICALLY SIGNED Kamran Gillette MD 12/18/2018 04:49 G[facility] Please call [facility] [employer] Consult[facility] [phone] with questions. This report was electronically signed by: Tala MENDEZ 12/18/2018 04: 50 [facility] Chest Wo ContResult Date: 12/13/2018History: Respiratory difficulty . FINDINGS: CT scanning of the chest wasperformed helically from the lung api martine to the upper abdomen withoutintravenous contrast material. Sagittal and coronal reconstructed images aresubmitted. Scanning was performed utilizing dose lowering te chniques and iscompared to the prior study of 11/08/2018. The study is quite limited by patientpositioning. Evaluation of thoracic vascular structures is limited withoutin travenous contrast material does not reveal evidence of aneurysmal dilatationor defi nite CT evidence of dissection. Coronary artery calcification is seen.There is mi nimal calcification of the aortic arch. There is minimalcalcification of the descendin g thoracic aorta. There is no definite evidence ofany pathologically enlarged l ymph node in the visualized portions of themediastinum or axillae. Evaluation of pulmonary parenchymal structures revealssome atelectatic change in the right upper lo be. There is a small left pleuraleffusion as well as left basilar atelectatic change. There is some patchyopacity within the right middle lobe and right lower lobe which c ould also beinfiltrative in nature. Limited evaluation of upper abdominal structures isunremarkable. There is deviation of mediastinal structures to the right. Thi scould be as result of atelectatic change within the right lung. This has beenseen previously and is unchanged.IMPRESSION: Extremely limited study by patient posit ioning. Deviation ofmediastinal structures to the right as has been seen on prior stud ies. Leftpleural effusion. Bilateral infiltrates and atelectasis, greater on the rightthan the left.Cta Up Ext Lt W ContResult Date: 12/18/2018History: Arm cl audication. FINDINGS: CTA of the left upper extremity wasperformed helically from le ricky of the shoulder through the fingers after theintravenous administration of 119 cc of Isovue. Sagittal, coronal, and 3-Dreconstructed images obtained on an Real[employer] workstation are submitted. Noprior studies are available for comparison. Th e left subclavian artery is widelypatent. It is continuous with a widely patent left axillary artery. The axillaryartery is continuous with a widely patent left bra chial artery. The brachialartery bifurcates into a radial and ulnar artery just belo w the elbow. From thispoint distally streak artifact from patient positioning limits evaluation.However, the ulnar artery appears widely patent to the wrist. The radial a rteryis less well opacified but does appear patent to the wrist as well. Anintraosse ous artery also appears patent although it is poorly visualized aswell. The digital ar teries are not visualized on this study. There arebilateralpleural effusions note d both of which are moderate to large. Theeffusion on the left one is larger th an the right. Bibasilar atelectatic changethroughout much of the lower lobes is seen. There is a significant shift ofmediastinal structures to the right. T he liver is decreased in attenuationcompatible with fatty infiltr ation. The spleen is unremarkable. The adrenalglands are normal in appearance. The pancreas is grossly normal as is thegallbladder. A gastrostomy tube is no mikel in situ. The kidneys are unremarkable.There is a midline abdomina l wall hernia containing large and small bowel aswell as mesentery without eviden ce of obstruction. There is some presacralthickening and possibly some fr ee fluid noted. The patient is status post ORIFof the left hip with metallic hardwa re in situ.IMPRESSION: Patent left upper extremity arterial vessels although eval uationdistally is limited. Bilateral pleural effusions and bibasilar atelectasis.Shif t of mediastinal structures to the right.Ct Abd Pelv Wo ContResult Date: 12/21/2018His tory: ? Maturity of g-tube tract Technique: CT of the abdomen and pelvis wasperforme d from the dome of the diaphragm to the pubic symphysis without oral orintravenous con trast with dose lowering techniques. Sagittal and coronalreconstructions were performe d. Evaluation of solid abdominal viscera iscompromised by by the lack of intraven ous contrast. Evaluation of the bowelloops is compromised lack of oral contrast. All C T scans at this facility areperformed using dose optimization technique as appropria te to a performed exam,to include automated exposure control, adjustment of the mA a nd/or kV accordingto patient size (including appropriate matching first site-specific examinations), or use of iterative reconstruction technique. Comparison: CT scanof the chest performed 12/19/18 Findings: There is a small right pleural effusionw ith adjacent atelectasis. There is minimal left pleural fluid with adjacentatelecta sis. There is a pigtail catheter again identified on the left. The exactlocatio n of this catheter is difficult to ascertain benefits above the diaphragmto below the diaphragm. On today's study the tip appears to be located below thediaphragm. There is a small right pleural effusion with adjacent atelectasis.There is a G-tube i dentified in the stomach. The liver, gallbladder, spleen,pancreas, kidneys an d adrenal glands are unremarkable. No abdominal, pelvic oringuinal lymphadenop athy is identified. No free intraperitoneal fluid is noted.There is a ventral wall h ernia containing loops of what appear to be small bowelhowever are difficult to foll ow. There is mild perirectal stranding andpresacral edema correlate clinically. No dilated loops of bowel are identified.There is mild diverticulosis of the colon. The prostate, bladder and seminalvesicles appear unremarkable. The re are streak artifact obscuring portions ofthe pelvis due to a left hip ORIF. The re is subcutaneous gas identified alongthe right lower anterior pelvic wall.IMPRESS ION: There is a G-tube identified in the stomach. There is a tailcatheter identif ied on the left. The tip appears to be located below thediaphragm although is d ifficult to assess on CT. There is a small residualamount of pleural fluid as well as atelectasis along the left diaphragm. Thereis perirectal stranding and presacr al edema.Ct Thoracentesis Insrt Chest TubeResult Date: 12/19/2018History: Pleura l effusion. PROCEDURE: After being informed of the risks,benefits, and potential alt ernatives procedure informed consent was obtained.The patient was placed on the t able in the belzj-dyam-hzez decubitus position.CT scanning was performed locat ion was chosen over the left flank. However, dueto the significant amount of patient motion and breathing motion was difficultto accurately assess a location for percuta neous paracentesis. Therefore, thiswas performed manually. After the chosen reg ion was prepped and draped in thenormal sterile fashion using maximum sterile ba rrier technique a lidocaineneedle was placed in the skin. This appeared to be in good position. Lidocainewas then used to anesthetize the skin and subcutaneous ti ssues in this location.Attempts were made to pass an 8 Congolese pigtail catheter throug h this location.However, patient continuous motion was significant as well as excess ivebreathing during the procedure. The catheter was placed at the same interspa ceas well as marked on the prior CT sequence however, due to the excessive patientmot ion the catheter was far more inferior within the chest that on the priorsequences. Th e catheter appeared to enter the hemiabdomen on the left from theleft chest. The cath eter was then pulled back to position where clear yellowfluid was aspirated. It was then sewn in position However, It appeared tomigrate forward and on the CT scanning appeared to again transgress thediaphragm. It was therefore pulled back to a point where only a clear fluid wasaspirated and respiratory variation was noted within t he tube. It was then sewnin position using 2-0 silk sutures. FINDINGS: Initial CT s debora revealed amoderate left pleural effusion. Attempts to nancy an adequate l ocation forpercutaneous thoracentesis were quite limited due to excessive patient m otionand breathing throughout the procedure. A location that appear to be a safelocat ion was marked. However, when the catheter was placed in this sameinterspace as wel l as marked the catheter appeared to be far more inferiorwithin the hemithorax than that seen previously. It appeared to enter the lefthemithorax inferiorly and transg ress the diaphragm with no evidence pathologicsequela. Therefore, it was pul led back into the pleural space for adequatedrainage. 130 cc of lightly bloo d-tinged fluid was aspirated. The catheter wasattached to a Pleur-evac and wall suc tion.IMPRESSION: Left-sided thoracentesis described above.Xr Chest PortResult Date : 12/18/2018Portable chest x-ray. PRIOR EXAM: 12/12/2018 and 11/25/2018 HISTORY: Pneumon ia andpleural effusions FINDINGS: The heart is normal in size. The mediastinum andpu lmonary vessels are unremarkable. There is haziness within the lung basesbilaterall y... The bony structures are intact.IMPRESSION: Haziness within the l eunice bases bilaterally that could representsmall pleural effusions and/or subsegmental atelectasis. Similar findings wereseen on prior exams.Xr Chest PortRes ult Date: 12/13/2018History: Respiratory difficulty. FINDINGS: A frontal portable view of the chestis compared to the prior study from earlier in the same day. EKG leads overliethe chest. The cardiac silhouette is normal in size. The left l eunice is clear. Theright lung is poorly evaluated due to significant rotation. T he possibility ofright basilar infiltrate or atelectatic change cannot be excluded. M ediastinaland hilar structures are poorly evaluated as well.IMPRESSION: Study quit e limited due to rotation. Opacity at the right lung basemay be infiltrative or at electatic in nature.Xr Chest PortResult Date: 12/12/2018History: Fever. Lethargy. FINDI NGS: 2 frontal views of the chest are compared tothe prior study of 11/25/2018. EKG leads overlie the chest. The cardiacsilhouette is normal in size. The re may be some streaky changes at the lungbases. Evaluation of the lungs and m ediastinal structures is quite limited dueto rotation.IMPRESSION: Study quite limited by rotation. Basilar streaks noted.Duplex Upper Ext Venous LeftResult Date: 019DUPLEX UPPER EXT VENOUS LEFT Clinical Data: Arm swelling, DVT suspectedFinding s: The visualized segments of the left upper extremity venous circulationfrom the lev el of the subclavian vein to the brachial vein is compressible andshows normal pha sic flow without an intraluminal thrombus. In addition, theinternal jugular vein an d the basilic vein is also patent. Extremely limitedexam because the patient was unab le to cooperate and this was done in a portablefashion.IMPRESSION: No evidence of deep vein thrombosis within the visualized left upperextremity venous circulation. Limited study.Medications:Current Facility-Administered MedicationsMedicat ion Dose Route Frequency valACYclovir (VALTREX) tablet 1,000 mg 1,000 mg Per G Tube Q12H methylPREDNISolone (PF) (SOLU-MEDROL) injection 20 mg 20 mg Int raVENous Q12H dextrose 5% infusion 50 mL/hr IntraVENous CONTINUOUS haloperidol lact ate (HALDOL) injection 2 mg 2 mg IntraVENous Q6H PRN acetaminophen (TYLENOL) solutio n 650 mg 650 mg Per NG tube Q4H PRN albuterol-ipratropium (DUO-NEB) 2.5 MG-0 .5 MG/3 ML 3 mL Nebulization Q4H PRN potassium, sodium phosphates (NEUTRA-JOCY S) packet 1 Packet 1 Packet Oral QID acetylcysteine (MUCOMYST) 100 mg/mL (10 %) nebulizer solution 200 mg 2 mLNebulization BID RT albuterol-ipratro pium (DUO-NEB) 2.5 MG-0.5 MG/3 ML 3 mL Nebulization Q6H RT bacitracin 500 unit /gram packet 1 Packet 1 Packet Topical BID budesonide (PULMICORT) 500 mcg/2 ml nebu lizer suspension 500 mcg NebulizationBID RT lamoTRIgine (LaMICtal) tablet 50 mg 50 mg Per G Tube BID valproic acid (as sodium salt) (DEPAKENE) 250 mg/5 mL (5 mL) oral solution 750mg 750 mg Per G Tube BID cinacalcet (SENSIPAR) tablet 60 mg 60 m g Oral DAILY pantoprazole (PROTONIX) granules for oral suspension 40 mg 40 m g Per G TubeACB heparin (porcine) injection 5,000 Units 5,000 Units SubCUTAneous Q1 2H sodium chloride (NS) flush 5-10 mL 5-10 mL IntraVENous PRNActive Problems: Pneu monia (11/08/2018) Sepsis due to undetermined organism (HCC) (12/12/2018)Assessment:Jocelyn n:obstructive pulmonary disease (HCC) GERD (gastroesophageal reflux disease) Hyp erparathyroidism (HCC) Mental retardation 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) Pneu monia Psychiatric disorder Pulmonary emboli (HCC) Schizophrenia (HCC) ACUT E RESPIRATORY FAILURE METABOLIC ENCEPHALOPATHY LEFT PLEURAL CATH NOT DRAINING FLUID pLAN PATIENT IS NOT CLEARED FOR P E G INSERTION YET DUE TO ACUTERESPIRATORY DISTRESS BIAPAP AT NIGHT NASAL CANNULA DAY TIME D/ C TN EDNISONE RESTART SOLUMEDROL 40 MG Q 8 H I V ZOSYN IF HE DETERIORATES MAY NEED INTUBATION PROGNOSIS IS GUARDED DISCONTINUE LEFT PLEURAL CATH BYRADIO LOGIST IN CAT SCAN TODAY Krystian Monae MD F.C.C.P.December 28, 20185:38 PM Name Value Range Interpretation Code Description Data Harriett rce(s) Supporting Document(s ) ID Date Data Source [id number] 12/28/2018 02:27:57 PM EDT [facility] ID Progress Note12/28/2018Patient is non verbal,unable to provide any historyAfebrileNoted to have ulcers on l ips.ComfortableObjective:Vitals:Patient Vitals for the past 24 hrs: BP Temp Puls e Resp SpO2 Lyptqx50/15/19 1319 - - - - 97 % -12/28/18 1128 107/56 97.2 F (36.2 C) 82 18 90 % -12/28/18 0755 - - - - 92 % -12/28/18 0728 108/65 99.4 F (37.4 C) 80 18 92 % -12/28/18 0652 - - - - - 52 kg (114 lb 11.2 oz)12/28/18 0429 102/63 98. 1 F (36.7 C) (!) 56 18 98 % -12/28/18 0210 - - - - 97 % -12/28/18 0053 99/76 98.1 F (36.7 C) 76 30 98 % -12/27/18 2103 98/61 98.4 F (36.9 C) 89 18 91 % -12/27/18 1 929 - - - - 95 % -Tmax: Temp (24hrs), Av.2 F (36.8 C), Min:97.2 F (36.2 C), Max:99.4 F(37.4 C)Physical Exam:General: Awake non verbal, coopera tive, no distressMouth/Throat: Ulcers no upper and lower lips.Neck: Supple, symme trical, trachea midline, no adenopathyLungs: Decrease breath sounds at bases.Heart: Regular rate and rhythm, S1, S2 normal, no murmurAbdomen: Soft, non-tender. Bowel sounds normal. No masses, No organomegaly.+feeding tubeBack: No CVA tenderness.Extremities: Extremities normal, atraumatic, no cyanosis or edema.Pulses: 2+ and symmetric all extremities.Skin: Skin color, texture, turgor normal. No rashes or lesionsCurrent Facility-Administered MedicationsMedication Dose Route Frequen cy valACYclovir (VALTREX) tablet 1,000 mg 1,000 mg Per G Tube Q12H methylPREDNISo lone (PF) (SOLU-MEDROL) injection 20 mg 20 mg IntraVENous Q12H dextrose 5% infusio n 50 mL/hr IntraVENous CONTINUOUS haloperidol lactate (HALDOL) injection 2 mg 2 mg IntraVENous Q6H PRN acetaminophen (TYLENOL) solution 650 mg 650 mg Per NG tube Q4H PRN albuterol-ipratropium (DUO-NEB) 2.5 MG-0.5 MG/3 ML 3 mL Nebul ization Q4H PRN potassium, sodium phosphates (NEUTRA-PHOS) packet 1 Packet 1 Packet Oral QID acetylcysteine (MUCOMYST) 100 mg/mL (10 %) nebulizer solution 200 mg 2 mLNe bulization BID RT albuterol-ipratropium (DUO-NEB) 2.5 MG-0.5 MG/3 ML 3 mL Nebul ization Q6H RT bacitracin 500 unit/gram packet 1 Packet 1 Packet Topical BID b udesonide (PULMICORT) 500 mcg/2 ml nebulizer suspension 500 mcg NebulizationBID RT lamoTRIgine (LaMICtal) tablet 50 mg 50 mg Per G Tube BID valproic acid (as sodium salt) (DEPAKENE) 250 mg/5 mL (5 mL) oral solution 750mg 750 mg Per G Tube BID c inacalcet (SENSIPAR) tablet 60 mg 60 mg Oral DAILY pantoprazole (PROTONIX) granules for oral suspension 40 mg 40 mg Per G TubeACB heparin (porcine) injection 5,0 00 Units 5,000 Units SubCUTAneous Q12H sodium chloride (NS) flush 5-10 mL 5-10 mL IntraVENous PRNLabs:Recent Labs 12/27/1902 0 WBC 9.2 8.5 13.7* --HGB 11.4* 11.7* 11.9* --PLT 241 229 234 --BUN 19 * 19* -- 15CREA 0.45* 0.53* -- 0.39*Cultures:Lab ResultsComponent Value Date/Time Culture result: NO GROWTH 2 DAYS 12/24/2018 09:45 AM Culture result: NO G ROWTH 5 DAYS 12/23/2018 12:00 PM Culture result: NO GROWTH 5 DAYS 12/23/2018 11:4 0 AMRadiology:No results found.Assessment: Sepsis. Aspiration pneumonia. Acute re spiratory failure with hypoxia and hypercapnia. Acute COPD exacerbation. Dysphagia. Atelectasis. Pleural effusion. Leukocytosis HSV stomatitis Plan:1. Continue Valtrex via peg.MARICEL Beauchampeptolga 20182:25 PM Name Value Range Interpretation Code Description Data Harriett rce(s) Supporting Document(s ) ID Date Data Source [id number] 12/28/2018 12:04:16 PM EDT [facility] Name Value Range Interpretation Description Data Sup porting Code Source(s) Document(s ) Glucose 86 MG/DL 65-110 [facility] [Mass/volume] Taoist in Blood by [facility] Automated test strip ID Date Data Source [id number] 12/28/2018 09:40:05 AM EDT [facility] Progress Bella Vierachbein68 y.o.Adm it Date: 12/12/2018Subjective:Patient awakeMore alertNo distressReview of syst ems not obtained due to patient factors.Objective:Visit VitalsBP 108/65 (BP 1 Location: Left arm, BP Patient Position: At rest)Pulse 80Temp 99.4 F ( 37.4 C)Resp 18Ht 5' 2" (1.575 m)Wt 52 kg (114 lb 11.2 oz)SpO2 92%BMI 20.98 kg/m I ntake/Output Summary (Last 24 hours) at 12/28/2018 0938Last data filed at 12/29/19 19 0434Gross per 24 hourIntake 75 mlOutput 1600 mlNet -1525 mlCurrent Facility-Admi nistered MedicationsMedication Dose Route Frequency Provider Last Rate Last Dose valACYclovir (VALTREX) tablet 1,000 mg 1,000 mg Per G Tube Q12H Natasha Dudley MD 1,0 00 mg at 12/28/18 0908 methylPREDNISolone (PF) (SOLU-MEDROL) injection 20 mg 20 m g IntraVENous D03PLledStelal fallon MD 20 mg at 12/28/18 0909 dextrose 5% infusion 50 mL/hr IntraVENous CONTINUOUS Oralia Frankel MD 50mL/hr at 12/23/18 1715 50 mL /hr at 12/23/18 1715 haloperidol lactate (HALDOL) injection 2 mg 2 mg IntraVENou s Q6H PRN Stella Hamilton MD 2 mg at 12/28/18 0909 acetaminophen (TYLENOL) s olution 650 mg 650 mg Per NG tube Q4H PRN Mili Hills DO 650 mg at 12/19/18 1818 albuterol-ipratropium (DUO-NEB) 2.5 MG-0.5 MG/3 ML 3 mL Nebulization Q4H TN NNMili buchanan DO 3 mL at 12/16/18 0417 potassium, sodium phosphates (NEUTRA-JOCY S) packet 1 Packet 1 Packet Oral Krystian Grey MD 1 Packet at 12/28/18 0908 a cetylcysteine (MUCOMYST) 100 mg/mL (10 %) nebulizer solution 200 mg 2 mLNebulizat ion BID RT Mili Hills, DO 200 mg at 12/28/18 0753 albuterol-ipratropium (DU O-NEB) 2.5 MG-0.5 MG/3 ML 3 mL Nebulization Q6H RTMili Hills, DO 3 mL at 12/14 08/31 0753 bacitracin 500 unit/gram packet 1 Packet 1 Packet Topical BID Maryann Hills, DO 1 Packet at 12/28/18 0908 budesonide (PULMICORT) 500 mcg/2 ml nebu lizer suspension 500 mcg NebulizationBID RT Van Plunkett MD 500 mcg at 12/28/18 0753 lamoTRIgine (LaMICtal) tablet 50 mg 50 mg Per G Tube BID Van Plunkett MD5 0 mg at 12/28/18 0908 valproic acid (as sodium salt) (DEPAKENE) 250 mg/5 mL (5 m L) oral solution 750mg 750 mg Per G Tube BID Van Plunkett MD 750 mg at 12/28/18 0908 cinacalcet (SENSIPAR) tablet 60 mg 60 mg Oral DAILY Van Plunkett MD 60mg at 12/28/18 0908 pantoprazole (PROTONIX) granules for oral suspension 40 mg 40 m g Per G TubeACB Van Plunkett MD 40 mg at 12/28/18 0909 heparin (porcine) injecti on 5,000 Units 5,000 Units SubCUTAneous Q12H Van Plunkett MD 5,000 Units at 12/28 0050 sodium chloride (NS) flush 5- 10 mL 5-10 mL IntraVENous PRN Van Plunkett MDPhysical Exam:Physical Exam:General: Awake, No distressNeck: SuppleLungs: C lear to auscultationHeart: S1, R5Dwedkhf: Soft, non-tender. Bowel sounds normal. N o masses, No organomegaly.Extremities: EdemaData Review:CBC w/DiffRecent Labs 09/1512/27/1902WBC 9.2 8.5 13.7*RBC 3.44* 3.60* 3.55*HGB 11.4* 11.7* 11.9*HCT 35.1* 36.6* 34.9*MCV 102.0* 101.7* 98.3*MCH 33.1 32.5 33.5MCHC 32.5 32.0 34.1RDW 16.6* 17.3* 17.1* Recent Labs 12/27/1902MONOS 6 2EOS 0 0BASOS 0 0RDW 16.6* 17.3* Lab ResultsComponent Value Date/Time PLATELE T 241 12/28/2018 03:21 AMComprehensive Metabolic ProfileRecent Labs 12/28/1902 21 12/26/19020NA 137 136 136K 4.6 4.5 4.9CL 96* 97* 99CO2 34* 36* 36*B UN 19* 19* 15CREA 0.45* 0.53* 0.39* Recent Labs 12/27/190212/26/18 0310CA 9.5 9.1 9.0PHOS 2.5 2.3* 2.4*ALB 2.2* 2.1* 2.1*X-RAY (Last 24 Hours)No results found.IMPRESSION:Patient Active Problem ListDiagnosis Code Paraesophageal hiata l hernia K44.9 COPD (chronic obstructive pulmonary disease) ([facility]) J44.9 Acute re spiratory distress R06.03 Pneumonia J18.9 COPD exacerbation ([facility]) J44.1 Sepsis du e to undetermined organism ([facility]) A41.9 PLAN: Monitor labs Monitor bun/creat Furthe r recommendations will be based on the patient's response to recommendedtreatme nt and results of the investigation ordered.James Iverson MD12/28/20189:38 AM Name Value Range Interpretation Code Description Data Harriett rce(s) Supporting Document(s ) ID Date Data Source [id number] 12/28/2018 08:15:20 AM EDT [facility] Bedside and Verbal shift change report carol Israel RN (oncoming nurse)by Shira Beatty RN(offgoing nurse). Report given with SBAR, Kardex, Intake/Output, MAR and RecentResults. Name Value Range Interpretation Code Description Data Harriett rce(s) Supporting Document(s ) ID Date Data Source [id number] 12/28/2018 07:40:51 AM EDT [facility] Patient much more relaxed. Bi-pap off. Patient placed on NC O2 at 6 L/min. O2sat is 98 % on 6 L/min.Will continue to nir tor. Name Value Range Interpretation Code Description Data Harriett rce(s) Supporting Document(s ) ID Date Data Source [id number] 12/28/2018 07:22:46 AM EDT [facility] Reviewed BIPAP settings, alarms and skin adhesive With next shift RT Samia. Name Value Range Interpretation Code Description Data [facility] rce(s) Supporting Document(s ) ID Date Data Source [id number] 12/28/2018 06:27:03 AM EDT [facility] Name Value Range Interpretation Description Data Sup porting Code Source(s) Document(s ) Glucose 90 MG/DL 65-110 [facility] [Mass/volume] [facility] in Blood by Hospital Automated test strip ID Date Data Source [id number] 12/28/2018 04:19:11 AM EDT [facility] Name Value Range Interpretation Description Data Sup porting Code Source(s) Document(s ) Sodium 137 136-145 [facility] [Moles/volume] mmol/L [facility] in Serum or Hospital Plasma Potassium 4.6 3.5-5.1 [facility] [Moles/volume] mmol/L [facility] in Serum or Hospital Plasma Chloride 96 98-107 Below low normal [facility] [Moles/volume] mmol/L [facility] in Serum or Hospital Plasma Carbon 34 21-32 Above high normal [facility] - Good dioxide, total mmol/L [facility]ist [Moles/volume] Hospital in Serum or Plasma Anion gap in 11 10-20 [facility] Serum or mmol/L [facility] Plasma Hospital Glucose 100 74-106 [facility] [Mass/volume] mg/dL [facility] in Serum or Hospital Plasma Urea nitrogen 19 mg/dL 7-18 Above high normal [facility] [Mass/volume] Tao[facility] in Serum or Hospital Plasma Creatinine 0.45 0.70-1.3 Below low normal [facility] [Mass/volume] mg/dL 0 [facility] in Serum or Hospital Plasma Glomerular >60 [facility] - Good filtration Taoist rate/1.73 sq M Hospital predicted among blacks [Volume Rate/Area] in Serum or Plasma by Creatinine-bas ed formula (MDRD) Glomerular >60 [facility] - Good filtration Taoist rate/1.73 sq M Hospital predicted among non-blacks [Volume Rate/Area] in Serum or Plasma by Creatinine-bas ed formula (MDRD) Calcium 9.5 8.5-10.1 [facility] [Mass/volume] mg/dL [facility] in Serum or Hospital Plasma Phosphate 2.5 2.5-4.9 [facility] [Mass/volume] mg/dL [facility] in Serum or Hospital Plasma Albumin 2.2 g/dL 3.5-4.7 Below low normal [facility] [Mass/volume] Tao[facility] in Serum or Hospital Plasma by Bromocresol purple (BCP) dye binding method ID Date Data Source [id number] 12/28/2018 04:19:11 AM ED[facility] Name Value Range Interpretation Description Data Sup porting Code Source(s) Document(s ) Magnesium 1.9 mg/dL 1.6-2.6 [facility] [Mass/volume] Tao[facility] in Serum or Hospital Plasma ID Date Data Source [id number] 12/28/2018 03:58:13 AM EDT [facility] Name Value Range Interpretation Description Data Sup porting Code Source(s) Document(s ) Leukocytes 9.2 K/uL 4.8-10.6 [facility] - [#/volume] in Good Blood by Taoist Automated count [facility] Erythrocytes 3.44 4.70-6.0 Below low normal [facility] - [#/volume] in M/uL 0 Good Blood by Taoist Automated count [facility] Hemoglobin 11.4 14.0-18. Below low normal [facility] - [Mass/volume] in g/dL 0 Good Blood [facility] Hematocrit 35.1 % 42.0-52. Below low normal [facility] - [Volume 0 Good Fraction] of Taoist Blood by Hospital Automated count Erythrocyte mean 102.0 FL 81.0-94. Above high normal [facility] - corpuscular 0 Good volume [Entitic Taoist volume] by Hospital Automated count Erythrocyte mean 33.1 PG 27.0-35. [facility] - corpuscular 0 Good hemoglobin Taoist [Entitic mass] Hospital by Automated count Erythrocyte mean 32.5 30.7-37. [facility] - corpuscular g/dL 3 Good hemoglobin [facility] concentration Hospital [Mass/volume] by Automated count Erythrocyte 16.6 % 11.5-14. Above high normal [facility] - distribution 0 Good width [Ratio] by Tao[facility] Automated count Hospital Platelets 241 K/uL 130-400 [facility] - [#/volume] in [facility] Blood by Taoist Automated count Hospital Platelet mean 9.9 FL 9.2-11.8 [facility] - volume [Entitic Good volume] in [facility] by Automated Hospital count Segmented 85 % 48.0-72. Above high normal [facility] - neutrophils/100 0 Good leukocytes in [facility] Lymphocytes/100 9 % 18.0-40. Below low normal [facility] - leukocytes in 0 [facility] Monocytes/100 6 % 2.0-12.0 [facility] - leukocytes in [facility] Eosinophils/100 0 % 0.0-7.0 [facility] - leukocytes in [facility] Basophils/100 0 % 0.0-3.0 [facility] - leukocytes in [facility] Segmented 7.8 K/UL 1.5-6.6 Above high normal [facility] - neutrophils Good [#/volume] in [facility] Lymphocytes 0.8 K/UL 1.5-3.5 Below low normal [facility] - [#/volume] in [facility] Monocytes 0.6 K/UL 0.0-1.0 [facility] - [#/volume] in [facility] Eosinophils 0.0 K/UL 0.0-0.7 [facility] - [#/volume] in [facility] Basophils 0.0 K/UL 0.0-0.1 [facility] - [#/volume] in [facility] Blood [facility] Differential [facility] - cell count Good method - Blood [facility] Immature 0 % 0.0-2.0 [facility] - granulocytes/100 Good leukocytes in Taoist Blood by [facility] Automated count ID Date Data Source [id number] 12/28/2018 01:17:01 AM EDT [facility] Patient agitated, hitting his own face a nd pulling oxygen tubing off. O2 sat isgoing down to 84 at times with O2 at 5 l/min. Patient placed on bipap andmedicated as ordered. Will monitor. Name Value Range Interpretation Code Description Data Harriett rce(s) Supporting Document(s ) ID Date Data Source [id number] 12/28/2018 12:42:17 AM EDT [facility] Name Value Range Interpretation Description Data Sup porting Code Source(s) Document(s ) Glucose 141 MG/DL 65-110 Above high normal [facility] [Mass/volume] [facility] Automated test strip ID Date Data Source [id number] 12/27/2018 07:56:55 PM EDT [facility] Verbal shift change report given to rn sabrina denton (oncoming nurse) by shawna (offgoing nurse). Report included the fo llowing information SBAR andKardex. Name Value Range Interpretation Code Description Data Harriett rce(s) Supporting Document(s ) ID Date Data Source [id number] 12/27/2018 07:45:08 PM EDT [facility] Verbal shift change report given to nancy denton (oncoming nurse) by shawna (offgoing nurse). Report included the fo llowing information SBAR andKardex. Name Value Range Interpretation Code Description Data Harriett rce(s) Supporting Document(s ) ID Date Data Source [id number] 12/27/2018 06:15:18 PM EDT [facility] Name Value Range Interpretation Description Data Sup porting Code Source(s) Document(s ) Glucose 96 MG/DL 65-110 [facility] in Blood by Hospital Automated test strip ID Date Data Source [id number] 12/27/2018 01:46:58 PM EDT [facility] ID Progress Note12/27/2018Patient is non verbal,unable to provide any historyAfebrileNoted to have ulcers on l ips.Objective:Vitals:Patient Vitals for the past 24 hrs: BP Temp Pulse Resp [facility] - - - - 100 % -12/27/18 1114 90/50 97.4 F (36.3 C) 86 - 96 % -12/27 0809 - - - - 95 % -12/27/18 0724 99/62 97.4 F (36.3 C) 89 18 98 % -12/27/18 0 640 - - - - - 55.6 kg (122 lb 9.6 oz)12/27/18 0410 112/82 98.5 F (36.9 C) 86 16 96 % -12/27/18 0127 - - - - 99 % -12/26/18 2343 105/56 97.1 F (36.2 C) 75 16 96 % -3 - - - - 94 % -12/26/182016 97/56 97.7 F (36.5 C) 79 16 94 % -12/26/18 1 545 94/78 98 F (36.7 C) 79 16 95 % -Tmax: Temp (24hrs), Av.7 F (36.5 C), Min :97.1 F (36.2 C), Max:98.5 F(36.9 C)Physical Exam:General: Awake non verb al, cooperative, no distressMouth/Throat: Ulcers no upper and lower lips.Neck: Sup ple, symmetrical, trachea midline, no adenopathyLungs: Decrease breath sound s at bases.Heart: Regular rate and rhythm, S1, S2 normal, no murmurAbdomen: Soft, non-tender. Bowel sounds normal. No masses, No organomegaly.+feeding tubeBack: No CVA tenderness.Extremities: Extremities normal, atraumatic, no cyanosis or edema .Pulses: 2+ and symmetric all extremities.Skin: Skin color, texture, t urgor normal. No rashes or lesionsCurrent Facility-Administered MedicationsMedicat ion Dose Route Frequency methylPREDNISolone (PF) (SOLU-MEDROL) injection 20 mg 20 m g IntraVENous Q12H dextrose 5% infusion 50 mL/hr IntraVENous CONTINUOUS haloperido l lactate (HALDOL) injection 2 mg 2 mg IntraVENous Q6H PRN acetaminophen (TYLE NOL) solution 650 mg 650 mg Per NG tube Q4H PRN albuterol-ipratropium (DUO-NEB) 2.5 MG-0.5 MG/3 ML 3 mL Nebulization Q4H PRN potassium, sodium phosphates (NEUTRA-JOCY S) packet 1 Packet 1 Packet Oral QID acetylcysteine (MUCOMYST) 100 mg/mL (10 %) nebulizer solution 200 mg 2 mLNebulization BID RT albuterol-ipratro pium (DUO-NEB) 2.5 MG-0.5 MG/3 ML 3 mL Nebulization Q6H RT bacitracin 500 unit /gram packet 1 Packet 1 Packet Topical BID piperacillin-tazobactam (ZOSYN) 3.375 g in 0.9% sodium chloride (MBP/ADV) 100mL MBP 3.375 g IntraVENous Q8H budesonide (PUL MICORT) 500 mcg/2 ml nebulizer suspension 500 mcg NebulizationBID RT lamoTRIgine (LaMICtal) tablet 50 mg 50 mg Per G Tube BID valproic acid (as sodium salt) (DEPAKEN E) 250 mg/5 mL (5 mL) oral solution 750mg 750 mg Per G Tube BID cinacalcet (SENSI PAR) tablet 60 mg 60 mg Oral DAILY pantoprazole (PROTONIX) granules for ora l suspension 40 mg 40 mg Per G TubeACB heparin (porcine) injection 5,000 Units 5,000 Units SubCUTAneous Q12H sodium chloride (NS) flush 5-10 mL 5-10 mL Int raVENous PRNLabs:Recent Labs 12/26/1910WB C 8.5 13.7* -- --HGB 11.7* 11.9* -- --PLT 229 234 -- --BUN 19* -- 15 12 CREA 0.53* -- 0.39* 0.44*Cultures:Lab ResultsComponent Value Date/Time Culture result: NO GROWTH 2 DAYS 12/24/2018 09:45 AM Culture result: NO GROWTH 4 DAYS 019 12:00 PM Culture result: NO GROWTH 4 DAYS 12/23/2018 11:40 AMRadiology:Duplex Uppe r Ext Venous LeftResult Date: 12/26/2018DUPLEX UPPER EXT VENOUS LEFT Clinical Data: Arm swelling, DVT suspectedFindings: The visualized segments of the left upper ex tremity venous circulationfrom the level of the subclavian vein to the brachial vein is compressible andshows normal phasic flow without an intraluminal thrombus. In ad dition, theinternal jugular vein and the basilic vein is also patent. Extremely l imitedexam because the patient was unable to cooperate and this was done in a portabl efashion.IMPRESSION: No evidence of deep vein thrombosis within the visualized left up perextremity venous circulation. Limited study.Assessment: Sepsis. Aspiration p neumonia. Acute respiratory failure with hypoxia and hypercapnia. Acute COPD exa cerbation. Dysphagia. Atelectasis. Pleural effusion. Leukocytosis HSV stomatitis Plan:1. discontinue IV zosyn2. Valtrex via peg.Natasha Dudley [facility] [place]43 PM Name Value Range Interpretation Code Description Data Harriett rce(s) Supporting Document(s ) ID Date Data Source [id number] 12/27/2018 01:12:59 PM EDT [facility] PULMONARY/ CCM- Consult NotePatient: Ivelisse Carlin Sex: male DOA: 12/12/2018Date of : 1 Age: 68 y.o. LOS: LOS: 15 daysHPI: kassie Carlin is a 68 y.o. 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 Authoriz ing Providerpantoprazole (PROTONIX) 40 mg granules for oral suspension 40 mg by Pe r G Tuberoute Daily (before breakfast). 11/28/18 Yes Mili Hills DObudesoni de (PULMICORT) 0.5 mg/2 mL nbsp 2 mL by Nebulization route two (2) timesa day fo r 30 days. 11/27/18 12/27/18 Yes Mili Hills, DOmultivitamin (ONE A DAY) tabl et Take 1 Tab by mouth daily. Yes Provider,Historicalclorazepate (TRANXENE ) 3.75 mg tablet Take by mouth nightly. Yes Provider,Historicalalbuterol-ipratro pium (DUO-NEB) 2.5 mg-0.5 mg/3 ml nebu 3 mL by Nebulizationroute every six (6) hours as needed. Yes Provider, HistoricallamoTRIgine (LAMICTAL) 25 mg t ablet Take 50 mg by mouth two (2) times a day.Yes Provider, Historicalcinacalcet ( SENSIPAR) 30 mg tablet Take 60 mg by mouth daily. Yes Provider,Historicalvalproat e (DEPAKENE) 250 mg/5 mL syrup Take 750 mg by mouth two (2) times a day.Yes Provider, HistoricalNo Known AllergiesHistory reviewed. No pertinent surgical history.History re viewed. No pertinent family history.Social HistorySocioeconomic History Marital st atus: SINGLE Spouse name: Not on file Number of children: Not on file Years o f education: Not on file Highest education level: Not on fileTobacco Use Smoking s tatus: Never Smoker Smokeless tobacco: Never UsedSubstance and Sexual Activity Alcoh ol use: No Drug use: NoReview of SystemsPertinent items are noted in the History of Present Illness.Physical Exam:Current medications:Current Facilit y-Administered Medications: methylPREDNISolone (PF) (SOLU-MEDROL) in jection 20 mg, 20 mg, IntraVENous,Q12H, Stella Hamilton MD, 20 mg at 12/27/18 1045 d extrose 5% infusion, 50 mL/hr, IntraVENous, CONTINUOUS, Oralia Frankel MD,Last Rate: 50 mL/hr at 12/23/18 1715, 50 mL/hr at 12/23/18 1715 haloperidol lactate (ULISSES DOL) injection 2 mg, 2 mg, IntraVENous, Q6H PRN,Stella Hamilton MD, 2 mg at 12/22/18 2306 acetaminophen (TYLENOL) solution 650 mg, 650 mg, Per NG tube, Q4H PRN,Mili Hills DO, 650 mg at 12/19/18 1818 albuterol-ipratropium (DUO-NEB) 2.5 MG-0 .5 MG/3 ML, 3 mL, Nebulization, Q4HPRN, Mili Hills DO, 3 mL at 12/16/18 04 17 potassium, sodium phosphates (NEUTRA-PHOS) packet 1 Packet, 1 Packet, Oral,QID, Krystian Monae MD, 1 Packet at 12/27/18 1040 acetylcysteine (MUCOMYST ) 100 mg/mL (10 %) nebulizer solution 200 mg, 2 mL,Nebulization, BID RT, Shaylee Hills DO, 200 mg at 12/27/18 0809 albuterol-ipratropium (DUO-NEB) 2.5 MG-0 .5 MG/3 ML, 3 mL, Nebulization, Q6HRT, Mili Hills DO, 3 mL at 12/27/18 08 08 bacitracin 500 unit/gram packet 1 Packet, 1 Packet, Topical, BID, Eloisa Hills DO, 1 Packet at 12/27/18 1040 piperacillin-tazobactam (ZOSYN) 3.375 g in 0.9% sodium chloride (MBP/ADV) 100mL MBP, 3.375 g, IntraVENous, Q8H, Manuel Plunkett MD, Last Rate: 25 mL/hr at12/27/18 0352, 3.375 g at 12/27/18 0352 budesonide (P ULMICORT) 500 mcg/2 ml nebulizer suspension, 500 mcg,Nebulization, BID RT, Abdiel Plunkett MD, 500 mcg at 12/27/18 0809 lamoTRIgine (LaMICtal) tablet 50 mg, 50 mg, Per G Tube, BID, Van Plunkett MD, 50 mg at 12/27/18 1040 valproic acid (as sod ium salt) (DEPAKENE) 250 mg/5 mL (5 mL) oral ervdviyj862 mg, 750 mg, Per G Tube, BID, Van Plunkett MD, 750 mg at 12/27/18 1040 cinacalcet (SENSIPAR) tablet 60 mg, 60 mg, Oral, DAILY, Van Plunkett MD,60 mg at 12/27/18 1042 pantoprazole (PROTONIX) granules for oral suspension 40 mg, 40 mg, Per GTube, ACB, Van Plunkett MD, 40 m g at 12/27/18 1041 heparin (porcine) injection 5,000 Units, 5,000 Units, SubC UTAneous, Q12H,Van Plunkett MD, 5,000 Units at 12/27/18 0108 sodium chloride (NS) flush 5-10 mL, 5-10 mL, IntraVENous, PRN, Van Plunkett MDDataVisit VitalsBP 90/50 (BP 1 Location: Left arm, BP Patient Position: Head of bed elevated(Comment d egrees))Pulse 86Temp 97.4 F (36.3 C)Resp 18Ht 5' 2" (1.575 m)Wt 55.6 kg (122 lb 9 .6 oz)SpO2 100%BMI 22.42 kg/m Intake and Output:Date 12/26/18 07 - 12/27/18 065 9 12/27/18 07 - 12/28/18 0659Shift 8806-7601 7055-8706 24 Hour Total 0700-1 859 5536-7194 24 Hour TotalINTAKEI.V.(mL/kg/hr) 400(0.6) 400( 0.3) Volume (dextrose 5% infusion) 200 200 Volume (piperacillin-tazobactam (ZOSYN) 3.375 g in 0.9% sodium chloride(MBP/ADV) 100 mL MBP) 200 200NG/GT 135 135 Water Fl ush Volume (mL) (PEG/Gastrostomy Tube 12/12/18) 75 75 Medication Volume (PEG /Gastrostomy Tube 12/12/18) 60 60Shift Total(mL/kg) 535(9.6) 535(9.6)OUTPUTUri ne(mL/kg/hr) 2400(3.6) 2400(1.8) Urine Voided 2400 2400Shift Total(mL/kg) 2400 (43.3) 2400(43.2)NET -2400 535 -1865Weight (kg) 55.4 55.6 55.6 55.6 55.6 55.6Pulse OX:SpO2 Readings from Last 6 Encounters:12/27/18 100%11/27/18 91%09/13 06/28 96%@LASTSAO2(6)@PHYSICAL EXAM:General: Lethargic,responding.Head: Normocepha lic, without obvious abnormality, atraumatic.Eyes: Conjunctivae clear, a nicteric sclerae. Pupils are equalNose: Nares normal. No drainage or sinus tende rness.Throat: Lips, mucosa, and tongue normal. No ThrushNeck: Supple, symmetr ical, no adenopathy, thyroid: non tender no carotid bruit and no JVD.Back: Symmet rodger, No CVA tenderness.Lungs: Scattered rhonchi,Chest wall: No tenderness or de formity. No Accessory muscle use.Heart: Regular rate and rhythm, no murmur, rub or gallop.Abdomen: Soft, non-tender. Not distended. Bowel sounds normal. No mass esExtremities: Extremities normal, atraumatic, No cyanosis. No edema. No c lubbingSkin: Texture, turgor normal. No rashes or lesions. Not JaundicedLymph n odes: Cervical, supraclavicular normal.Neurologic: Lethargic.Most recent labs:Recent Labs 130WBC 8.5 13.7*HGB 11.7* 11.9* HCT 36.6* 34.9*PLT 229 234Recent Labs 12/26/1902436 0 5NA 136 136 -- 139K 4.5 4.9 -- 4.8CL 97* 99 -- 99CO2 36* 36* 39* 34*G ELHAM 200* 96 -- 182*BUN 19* 15 -- 12CREA 0.53* 0.39* -- 0.44*CA 9.1 9.0 -- 9. 0MG 1.8 1.8 -- 2.1PHOS 2.3* 2.4* -- 3.0ALB 2.1* 2.1* -- 1.9*Recent Labs 0 6PH 7.47*PCO2 51*PO2 67*HCO3 37*ABG:Recent Labs 6PH 7.47* PCO2 51*PO2 67*HCO3 37*Cultures:No results found for: Kev[employer]el GroupESLab ResultsComponent Valu e Date/Time Culture result: NO GROWTH 2 DAYS 12/24/2018 09:45 AM Culture result: NO G ROWTH 4 DAYS 12/23/2018 12:00 PM Culture result: NO GROWTH 4 DAYS 12/23/2018 11:4 0 AM Culture result: NO GROWTH 4 DAYS 12/19/2018 12:30 PM Culture result: NO G ROWTH 4 DAYS 12/19/2018 12:30 PM Culture result: NO GROWTH 1 DAY 12/12/2018 08:04 PM Culture result: NO GROWTH 5 DAYS 12/12/2018 07:40 PM Culture result: NO G ROWTH 5 DAYS 12/12/2018 07:40 PM Culture result: NO GROWTH 2 DAYS 11/20/2018 09:0 0 AM Culture result: NO GROWTH 5 DAYS 11/07/2018 08:10 PM Culture result: NO G ROWTH 5 DAYS 11/07/2018 08:00 PMImages:Cta Chest W Or W Wo ContResult Date: 11/09/19 19Examination: CTA Chest ? PE angiography History: Hypoxia; rule out pneumoniavers us pulmonary embolism Priors: None Technique: Low-dose, multiplanar,helica l CTA chest was performed with bolus IV injection from lung apices tobases. 3D- reformatted images were obtained and reviewed on a dedicated viewingworkstation and di rectly supervised. Contrast: A total of 71 mL of Isovue-370was administered intravenou sly for this procedure. Findings: No evidence ofpulmonary embolism is seen. T here is decreased size of the right hemithorax fromchronic scarring and retr action with mediastinal shift left to right.Additional area of consolidation i s seen in the right lower lobe and suggestssuperimposed pneumonia with subs egmental atelectasis. Subsegmental atelectasisis also noted in the left jorge g base, with pleural parenchymal scarring. Lowlung volumes are seen. No pneumothora x seen. Aorta normal in caliber withoutaneurysm or dissection. Mediastin um no adenopathy. Mediastinal shift is seen inthe left and right as a result of chr onic changes in the right hemithorax.Heart shows no chamber enlargement or pericard ial effusion. No acute fracturesseen in the bony thorax, sternum, manubrium and rib cage. Multiple compressiondeformities are seen in the mid and lower thoracic spine , with superimposedspondyloarthropathy. Cannot exclude acute fracture.Impression : No evidence of pulmonary embolism Right lower lobe pneumoniasuggested. Incidenta l scarring and retraction in the right hemithorax fromremote/chronic inflammato ry disease and/or trauma. Bibasilar subsegmentalatelectasis. Report Electron ically Signed By: Pawel Zafar M.D. -11/08/2018 12:40 AMXr Chest PortResult D ate: 11/07/2018XR CHEST PORT CLINICAL INDICATION PROVIDED:. "sob." COMPARISON: . 09/26/2015.FINDINGS:. The pericardial/cardiac silhouette is enlarg ed in the transversedimension. There is no pulmonary vascular congestion or interst itial edema.Linear density in the left lung base and faint densities in the right mi d tolower lung likely represent atelectasis. There is no lobar consolidation oreffusi on. There is no pneumothorax.IMPRESSION:. Bilateral lower lung atelectasis. No donna dence of consolidation oreffusion.Assessment/PlanActive Problem s: Pneumonia (11/08/2018) Sepsis due to undetermined organism (HCC) (12/12/2018) Acute resp failure combined, pneumonia acute copd exacerbationPLAN,Monitoring,bipap p rn for resp distressChest percussionss/p left pig tail catheterIvabx as per id,Iv ster oids taperbipap prn and at night.NebS/p peg,feeding started.D/w nursing staff,MARICEL Saldivarept2018The billing code submitted in association with this evaluation also includes thetime to review patient's prior records, communicate wit h the physician team,obtain corroborating data, and discuss the risk and benefits of the proposedmanagement plan with the patient and their family >30 minutes. Name Value Range Interpretation Code Description Data Harriett rce(s) Supporting Document(s ) ID Date Data Source [id number] 12/27/2018 12:55:16 PM EDT [facility] Alert/confused no signs of acute pain or distress, telemetry recording sinusrhythm and vitals remain stable 02 sats are 100 % on 4lnc, will monitor forchanges in condition Name Value Range Interpretation Code Description Data Harriett rce(s) Supporting Document(s ) ID Date Data Source [id number] 12/27/2018 01:00:29 PM EDT [facility] Name Value Range Interpretation Description Data Sup porting Code Source(s) Document(s ) Glucose 114 MG/DL 65-110 Above high normal [facility] [Mass/volume] [facility] in Blood by Hospital Automated test strip ID Date Data Source [id number] 12/27/2018 12:16:48 PM EDT [facility] Progress NoteEmanuel [id number] y.o.Adm it Date: 12/12/2018Subjective:Patient comfortableNo distressReview of systems not obtained due to patient factors.Objective:Visit VitalsBP 90/50 ( BP 1 Location: Left arm, BP Patient Position: Head of bed elevated(Comment degrees))Pu lse 86Temp 97.4 F (36.3 C)Resp 18Ht 5' 2" (1.575 m)Wt 55.6 kg (122 lb 9.6 oz)SpO2 96%BMI 22.42 kg/m Intake/Output Summary (Last 24 hours) at 12/27/2018 1215Last data yoshi ed at 12/27/2018 0600Gross per 24 hourIntake 535 mlOutput 2400 mlNet -1865 mlCurrent Facility-Administered MedicationsMedication Dose Route Frequency Provider Last Rate Last Dose methylPREDNISolone (PF) (SOLU-MEDROL) injection 20 mg 20 mg Int raVENous [id number] fallon MD 20 mg at 12/27/18 1045 dextrose 5% infusion 50 mL/hr IntraVENous CONTINUOUS Oralia Frankel MD 50mL/hr at 12/23/18 1715 50 mL/hr at 12/23/18 1715 haloperidol lactate (HALDOL) injection 2 mg 2 mg IntraVENous Q6H PRN Stella Hamilton MD 2 mg at 12/22/18 2306 acetaminophen (TYLENOL) solution 650 mg 650 mg Per NG tube Q4H PRN Mili Hills DO 650 mg at 12/19/18 1818 albuterol- ipratropium (DUO-NEB) 2.5 MG-0.5 MG/3 ML 3 mL Nebulization Q4H PRMili Murphy DO 3 mL at 12/16/18 0417 potassium, sodium phosphates (NEUTRA-PHOS) packet 1 Packet 1 Packet Oral Krystian Grey MD 1 Packet at 12/27/18 1040 acetylcysteine (MUCOMYST) 100 mg/mL (10 %) nebulizer solution 200 mg 2 mLNebulization BID RT Mili Hills DO 200 mg at 12/27/18 0809 albuterol-ipratropium (DUO-NEB) 2. 5 MG-0.5 MG/3 ML 3 mL Nebulization Q6H RTMili Hills DO 3 mL at 12/27/18 0808 bacitracin 500 unit/gram packet 1 Packet 1 Packet Topical BID Maryann Hills, 1 Packet at 12/27/18 1040 piperacillin-tazobactam (ZOSYN) 3.375 g in 0.9% sodium chloride (MBP/ADV) 100mL MBP 3.375 g IntraVENous Q8H Van Plunkett MD 25 mL/hr at 12/27/18 76357.375 g at 12/27/18 0352 budesonide (PULMICORT) 50 0 mcg/2 ml nebulizer suspension 500 mcg NebulizationBID RT Van Plunkett MD 500 mcg at 12/27/18 0809 lamoTRIgine (LaMICtal) tablet 50 mg 50 mg Per G Tub e BID Van Plunkett MD50 mg at 12/27/18 1040 valproic acid (as sodium salt) (DE PAKENE) 250 mg/5 mL (5 mL) oral solution 750mg 750 mg Per G Tube BID Christine Plunkett MD 750 mg at 12/27/18 1040 cinacalcet (SENSIPAR) tablet 60 mg 60 mg Oral KYLEIGH Y Van Plunkett MD 60mg at 12/27/18 1042 pantoprazole (PROTONIX) granules for ora l suspension 40 mg 40 mg Per G TubeACB Van Plunkett MD 40 mg at 12/27/18 1041 h eparin (porcine) injection 5,000 Units 5,000 Units SubCUTAneous Q12H Van Plunkett M D 5,000 Units at 12/27/18 0108 sodium chloride (NS) flush 5-10 mL 5-10 mL Int raVENous PRN Van Plunkett MDPhysical Exam:Physical Exam:General: Awake, No d istressNeck: SuppleLungs: Clear to auscultationHeart: S1, I9Yhefwya: So ft, non-tender. Bowel sounds normal. No masses, No organomegaly.Extremities: Ed ivelisse--noneData Review:CBC w/DiffRecent Labs 12/26/1910WBC 8.5 13.7*RB C 3.60* 3.55*HGB 11.7* 11.9*HCT 36.6* 34.9*MCV 101.7* 98.3*MCH 32.5 33.5MCHC 3 2.0 34.1RDW 17.3* 17.1* Recent Labs MONOS 2EOS 0BASOS 0RDW 17.3* Lab ResultsComponent Value Date/Time PLATELET 229 12/27/2018 03:05 AMComprehe nsive Metabolic ProfileRecent Labs 12/26/1902 0 NA 136 136 -- 139K 4.5 4.9 -- 4.8CL 97* 99 -- 99CO2 36* 36* 39* 34*B UN 19* 15 -- 12CREA 0.53* 0.39* -- 0.44* Recent Labs 12/26/1902 0 5CA 9.1 9.0 9.0PHOS 2.3* 2.4* 3.0ALB 2.1* 2.1* 1.9*X-RAY (Last 24 Hour s)Duplex Upper Ext Venous LeftResult Date: 12/26/2018DUPLEX UPPER EXT VENOUS LEFT Cl inical Data: Arm swelling, DVT suspectedFindings: The visualized segmen ts of the left upper extremity venous circulationfrom the level of the subclav deondre vein to the brachial vein is compressible andshows normal phasic flow without an i ntraluminal thrombus. In addition, theinternal jugular vein and the basilic vein is also patent. Extremely limitedexam because the patient was unable to geo ate and this was done in a portablefashion.IMPRESSION: No evidence of deep vein thrombosis within the visualized left upperextremity venous circulation. Limited study.IMPRESSION:Patient Active Problem ListDiagnosis Code Paraesophage al hiatal hernia K44.9 COPD (chronic obstructive pulmonary disease) ([facility]) J44 .9 Acute respiratory distress R06.03 Pneumonia J18.9 COPD exacerbation ([facility]) J44.1 Sepsis due to undetermined organism ([facility]) A41.9 PLAN: Replete phos Monito r labs Further recommendations will be based on the patient's response to recommended treatment and results of the investigation ordered.James Iverson MD12/27/201812:15 P M Name Value Range Interpretation Code Description Data [facility] Supporting Document(s ) ID Date Data Source [id number] 12/27/2018 07:41:53 AM EDT [facility] Bedside and Verbal shift change report g iven to Tatum Darby RN (oncomingnurse) by Shira Beatty RN(offgoing nurse). Report given with SBAR, Kardex, Intake/Output, MAR and RecentResults. Name Value Range Interpretation Code Description Data [facility] rce(s) Supporting Document(s ) ID Date Data Source [id number] 12/27/2018 06:25:01 AM EDT [facility] Name Value Range Interpretation Description Data Sup porting Code Source(s) Document(s ) Glucose 143 MG/DL 65-110 Above high normal [facility] [Mass/volume] [facility] in Blood by Hospital Automated test strip ID Date Data Source [id number] 12/27/2018 03:58:59 AM EDT [facility] Name Value Range Interpretation Description Data Sup porting Code Source(s) Document(s ) Sodium 136 136-145 [facility] [Moles/volume] mmol/L [facility] in Serum or Hospital Plasma Potassium 4.5 3.5-5.1 [facility] [Moles/volume] mmol/L [facility] in Serum or Hospital Plasma Chloride 97 98-107 Below low normal [facility] [Moles/volume] mmol/L [facility] in Serum or Hospital Plasma Carbon 36 21-32 Above high normal [facility] dioxide, total mmol/L [facility] [Moles/volume] Hospital in Serum or Plasma Anion gap in 7 mmol/L 10-20 Below low normal [facility] od Serum or [facility] Plasma Hospital Glucose 200 74-106 Above high normal [facility] [Mass/volume] mg/dL [facility] in Serum or Hospital Plasma Urea nitrogen 19 mg/dL 7-18 Above high normal [facility] [Mass/volume] [facility] in Serum or Hospital Plasma Creatinine 0.53 0.70-1.3 Below low normal [facility] [Mass/volume] mg/dL 0 [facility] in Serum or Hospital Plasma Glomerular >60 [facility] filtration [facility] rate/1.73 sq M Hospital predicted among blacks [Volume Rate/Area] in Serum or Plasma by Creatinine-bas ed formula (MDRD) Glomerular >60 [facility] filtration [facility] rate/1.73 sq M Hospital predicted among non-blacks [Volume Rate/Area] in Serum or Plasma by Creatinine-bas ed formula (MDRD) Calcium 9.1 8.5-10.1 [facility] [Mass/volume] mg/dL [facility] in Serum or Hospital Plasma Phosphate 2.3 2.5-4.9 Below low normal [facility] [Mass/volume] mg/dL [facility] in Serum or Hospital Plasma Albumin 2.1 g/dL 3.5-4.7 Below low normal [facility] [Mass/volume] [facility] in Serum or Hospital Plasma by Bromocresol purple (BCP) dye binding method ID Date Data Source [id number] 12/27/2018 03:58:59 AM EDT [facility] Name Value Range Interpretation Description Data Sup porting Code Source(s) Document(s ) Magnesium 1.8 mg/dL 1.6-2.6 [facility] [Mass/volume] [facility] in Serum or Hospital Plasma ID Date Data Source [id number] 12/27/2018 03:40:15 AM EDT [facility] Name Value Range Interpretation Description Data Sup porting Code Source(s) Document(s ) Leukocytes 8.5 K/uL 4.8-10.6 [facility] - [#/volume] in Good Blood by [facility] Automated count Hospital Erythrocytes 3.60 4.70-6.0 Below low normal [facility] - [#/volume] in M/uL 0 Good Blood by Taoist Automated count [facility] Hemoglobin 11.7 14.0-18. Below low normal [facility] - [Mass/volume] in g/dL 0 [facility] Blood [facility] Hematocrit 36.6 % 42.0-52. Below low normal [facility] - [Volume 0 Good Fraction] of Taoist Blood by Hospital Automated count Erythrocyte mean 101.7 FL 81.0-94. Above high normal [facility] - corpuscular 0 Good volume [Entitic Taoist volume] by Hospital Automated count Erythrocyte mean 32.5 PG 27.0-35. [facility] - corpuscular 0 Good hemoglobin Taoist [Entitic mass] [facility] by Automated count Erythrocyte mean 32.0 30.7-37. [facility] - corpuscular g/dL 3 Good hemoglobin [facility] [Mass/volume] by Automated count Erythrocyte 17.3 % 11.5-14. Above high normal [facility] - distribution 0 Good width [Ratio] by [facility] Automated count Hospital Platelets 229 K/uL 130-400 [facility] - [#/volume] in Good Blood by Taoist Automated count [facility] Platelet mean 10.2 FL 9.2-11.8 [facility] - volume [Entitic Good volume] in Blood [facility] by Automated Hospital count Segmented 92 % 48.0-72. Above high normal [facility] - neutrophils/100 0 Good leukocytes in [facility] Lymphocytes/100 6 % 18.0-40. Below low normal [facility] - leukocytes in 0 Good Blood [facility] Monocytes/100 2 % 2.0-12.0 [facility] - leukocytes in [facility] Eosinophils/100 0 % 0.0-7.0 [facility] - leukocytes in [facility] Basophils/100 0 % 0.0-3.0 [facility] - leukocytes in [facility] Segmented 7.7 K/UL 1.5-6.6 Above high normal [facility] - neutrophils Good [#/volume] in [facility] Lymphocytes 0.5 K/UL 1.5-3.5 Below low normal [facility] - [#/volume] in [facility] Monocytes 0.2 K/UL 0.0-1.0 [facility] - [#/volume] in [facility] Eosinophils 0.0 K/UL 0.0-0.7 [facility] - [#/volume] in [facility] Basophils 0.0 K/UL 0.0-0.1 [facility] - [#/volume] in [facility] Differential [facility] - cell count [facility] Immature 1 % 0.0-2.0 [facility] - granulocytes/100 [facility] leukocytes in [facility] Automated count ID Date Data Source [id number] 12/27/2018 02:09:23 AM EDT [facility] Problem: Falls - Risk ofGoal: *Absence o f FallsDescriptionDocument Samra Fall Risk and appropriate interventions in the jhon wsheet.Outcome: Progressing Towards GoalNote:Fall Risk Interventions:Mentati on Interventions: Door open when patient unattendedMedication Interventions: Eval uate medications/consider consulting pharmacyElimination Interventions: Call light in reach, Toilet paper/wipes in reach Name Value Range Interpretation Code Description Data Harriett rce(s) Supporting Document(s ) ID Date Data Source [id number] 12/27/2018 12:24:28 AM EDT [facility] Name Value Range Interpretation Description Data Sup porting Code Source(s) Document(s ) Glucose 137 MG/DL 65-110 Above high normal [facility] [Mass/volume] [facility] in Blood by Hospital Automated test strip ID Date Data Source [id number] 12/26/2018 10:22:38 PM EDT [facility] Progress NotePatient: Evelio Carlin Sex: male DOA: 12/12/2018Date of : 1950 Age: 68 y.o. :[id number]:Reyes Carlin is 68 y.o. male who presented with lethargy,cough, fever,hypoxia, meta bolic acidosis, and hypothermia.He has medical history of Dysphagia with recent admission s/p surgical pegplacement on 11/17/18, severe intellectual disability, Chronic respiratoryfailure, hyperparathyroid unspecified, personal h/o pulmonary embo aspen, anxietydisorder, kyphosis and schizophreniaPt was admitted with encoun ter diag of Acute Respiratory failure withhypercapnia and hypoxia, metabolic a cidosis, sepsis poa, Acute COPD exacerbationand dysphagia s/p surgical p lacement of peg,. Also diag of mentally challenged,seizure disorder and hyperpar athyroid.Pt is nonverbal and unable to provide a history.During the interval ; gi requested to see the pt for possible conversion of Pegto J tube in order to make aspirations less likely, less severe.CTA of the LUE on 12/18/18 showed Patent LUE arterial vessels , althoughevauation distally is limited. B/L peural effusions and bib asilar atelectasis.shirft of mediastinal structures to the rt. Pt s/p CT guided l eft thoracentesis on 12/19/18. On gi f/u pt was scheduled for endo placement of a J tube via PEG. Howeverprocedure was rescheduled pending improvement in pt respiratory st atus.Repeat CT Abd /Pelvis dated 12/22/18 showing G-tube in the stomach. Pig tail cathid on the left. The tip appears to be located below the diaphragm although isd ifficult to assess on Ct. There is subcutaneous gas id along the lower ante riorpelvic wall. There is perirectal stranding and presacral edema.On 12/24/18 pt was determined not cleared for PEG placemetn due to AcuteRespiratory Distre ss. Pt was restarted on IV solumedrol. He was cont on IVZosyn.CXR dated 12/25 showi ng small right pleural effusion.Pt wearing Mitts restraints to prevent removal of n vivian canula S/P removal today of Left Pig tail catheterThe pt is awake and alert w earing O2 NC. 3.5 LPM with O2 SAT 95 %.GI noted today. Peg conversion to J tube de cristina again today. 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 Pupils are equalNose: Wearing O2 NCThroat: Lips, mucosa, and tongue normal. No ThrushNeck: Supple, symmetrical, no adenopathy, no carotid bruit and no JVD.Lungs: Clear to auscultation bilaterally. No Wheezing o r Rhonchi. No rales.Chest wall: No Accessory muscle use.Heart: Regular ra te and rhythm, no murmur, or rub.Abdomen: + Peg, soft, non-tender. Not distended. Bowel sounds normal. NomassesExtremities: Extremities normal, atraumatic, No cyano sis. No edema. No clubbingSkin: Warm and dry. No rashes or lesions. Not Jaundic edLymph nodes: Cervical, supraclavicular normal.Neurologic: EOMs intact. No facia l asymmetry. Non verbal. Alert and Awake.Intake and Output:Current Shift: No intake/output data recorded.Last three shifts: 12/25 700 - 12/26 1899In: 2700 [I.V.:300]Out: 5625 [Urine:4450; Drains:125]Lab/Data Reviewed:Recent Days :Recent Labs 130WBC 13.7*HGB 11.9*HCT 34.9*PLT 234Recent Labs 12/25/1913NA 136 -- 139 139K 4.9 -- 4.8 4.8CL 99 -- 99 99CO2 36* 39* 34* 36*GLU 96 -- 182* 100BUN 15 -- 12 9C SHILO 0.39* -- 0.44* 0.36*CA 9.0 -- 9.0 8.6MG 1.8 -- 2.1 2.0PHOS 2.4* -- 3.0 3.7ALB 2.1* -- 1.9* 1.8*Recent Labs PH 7.47*PCO2 51*PO2 67*HCO3 37*Xr Chest Sngl VResult Date: 12/25/2018Portable chest x-ray. PRIOR EXA M: X-ray 12/18/2018 HISTORY: Pneumonia FINDINGS:The heart is normal in size. Th e mediastinum and pulmonary vessels areunremarkable. There is a small right pleural effusion.. A tube projected overthe left upper quadrant of the abdomen..IMPR ESSION: Small right pleural effusion.Ct Chest Wo ContResult Date: 12/18/2018Referring Ph ysician: KRYSTIAN MONAE Patient Name: EVELIO CARLIN THIS IS AFINAL REPORT FROM [facility] DATE OF SERVICE: 2018-12-18 01:22:40 IMAGES:555 EXAM: CT CHEST WO CO NTRAST HISTORY: .. Right lower lobe atelectasis..TECHNIQUE: Helical axial im aging from the thoracic inlet through the adrenalglands without contrast. Sagittal and coronal reconstructions were obtained.COMPARISON: CT chest without co ntrast of 12/13/2018. FINDINGS: .. Evaluationremains limited due to lack of IV contrast and patient positioning. The imagedthyroid gland remains atrophic. Th e aorta remains normal in caliber.Atherosclerotic calcifications a re again seen in the aorta. There is againcardiomediastinal shift towards the right. The heart remains normal in size andno pericardial effusion is noted. No obvious lymphadenopathy seen on thisunenhanced scan. No pneumothorax is noted. Since the prior exam there is beenincrease in bilateral pleural effusi ons with associated consolidations. Acalcified granuloma is again seen in th e right lower lobe. The imaged upperabdomen does not demonstrate any gross acute maggy nges. Osteopenia is again noted.Degenerative changes again seen in the imaged spine. Old healed right posteriorlower rib fractures are again seen.IMPRESSION: .. Limited s tudy demonstrating increase in bilateral pleuraleffusions with associated consoli dations with persistent cardiomediastinal shifttowards the right. Stable findings as noted above.. One or more of the followingdose reduction techniques were used: automated exposure control, adjustment ofthe mA and/or kV according to patient size, use of iterative reconstructivetechnique. THIS DOCUMENT H BEEN ELECTRONICALLY SIGNED Kamran Gillette MD 12/18/2018 04:49 GINA Verde Please call [facility] [employer] Consult[facility] [phone] with questions. This report was electronically signed by: Tala MENDEZ 12/18/2018 04: 50 [facility] Chest Wo ContResult Date: 12/13/2018History: Respiratory difficulty . FINDINGS: CT scanning of the chest wasperformed helically from the lung api martine to the upper abdomen withoutintravenous contrast material. Sagittal and coronal reconstructed images aresubmitted. Scanning was performed utilizing dose lowering te chniques and iscompared to the prior study of 11/08/2018. The study is quite limited by patientpositioning. Evaluation of thoracic vascular structures is limited withoutin travenous contrast material does not reveal evidence of aneurysmal dilatationor defi nite CT evidence of dissection. Coronary artery calcification is seen.There is mi nimal calcification of the aortic arch. There is minimalcalcification of the descendin g thoracic aorta. There is no definite evidence ofany pathologically enlarged l ymph node in the visualized portions of themediastinum or axillae. Evaluation of pulmonary parenchymal structures revealssome atelectatic change in the right upper lo be. There is a small left pleuraleffusion as well as left basilar atelectatic change. There is some patchyopacity within the right middle lobe and right lower lobe which c ould also beinfiltrative in nature. Limited evaluation of upper abdominal structures isunremarkable. There is deviation of mediastinal structures to the right. Thi scould be as result of atelectatic change within the right lung. This has beenseen previously and is unchanged.IMPRESSION: Extremely limited study by patient posit ioning. Deviation ofmediastinal structures to the right as has been seen on prior stud ies. Leftpleural effusion. Bilateral infiltrates and atelectasis, greater on the rightthan the left.Cta Up Ext Lt W ContResult Date: 12/18/2018History: Arm cl audication. FINDINGS: CTA of the left upper extremity wasperformed helically from le ricky of the shoulder through the fingers after theintravenous administration of 119 cc of Isovue. Sagittal, coronal, and 3-Dreconstructed images obtained on an RealtimeBoard workstation are submitted. Noprior studies are available for comparison. Th e left subclavian artery is widelypatent. It is continuous with a widely patent left axillary artery. The axillaryartery is continuous with a widely patent left bra chial artery. The brachialartery bifurcates into a radial and ulnar artery just belo w the elbow. From thispoint distally streak artifact from patient positioning limits evaluation.However, the ulnar artery appears widely patent to the wrist. The radial a rteryis less well opacified but does appear patent to the wrist as well. Anintraosse ous artery also appears patent although it is poorly visualized aswell. The digital ar teries are not visualized on this study. There arebilateralpleural effusions note d both of which are moderate to large. Theeffusion on the left one is larger th an the right. Bibasilar atelectatic changethroughout much of the lower lobes is seen. There is a significant shift ofmediastinal structures to the right. T he liver is decreased in attenuationcompatible with fatty infiltr ation. The spleen is unremarkable. The adrenalglands are normal in appearance. The pancreas is grossly normal as is thegallbladder. A gastrostomy tube is no mikel in situ. The kidneys are unremarkable.There is a midline abdomina l wall hernia containing large and small bowel aswell as mesentery without eviden ce of obstruction. There is some presacralthickening and possibly some fr ee fluid noted. The patient is status post ORIFof the left hip with metallic hardwa re in situ.IMPRESSION: Patent left upper extremity arterial vessels although eval uationdistally is limited. Bilateral pleural effusions and bibasilar atelectasis.Shif t of mediastinal structures to the right.Ct Abd Pelv Wo ContResult Date: 12/21/2018His tory: ? Maturity of g-tube tract Technique: CT of the abdomen and pelvis wasperforme d from the dome of the diaphragm to the pubic symphysis without oral orintravenous con trast with dose lowering techniques. Sagittal and coronalreconstructions were performe d. Evaluation of solid abdominal viscera iscompromised by by the lack of intraven ous contrast. Evaluation of the bowelloops is compromised lack of oral contrast. All C T scans at this facility areperformed using dose optimization technique as appropria te to a performed exam,to include automated exposure control, adjustment of the mA a nd/or kV accordingto patient size (including appropriate matching first site-specific examinations), or use of iterative reconstruction technique. Comparison: CT scanof the chest performed 12/19/18 Findings: There is a small right pleural effusionw ith adjacent atelectasis. There is minimal left pleural fluid with adjacentatelecta sis. There is a pigtail catheter again identified on the left. The exactlocatio n of this catheter is difficult to ascertain benefits above the diaphragmto below the diaphragm. On today's study the tip appears to be located below thediaphragm. There is a small right pleural effusion with adjacent atelectasis.There is a G-tube i dentified in the stomach. The liver, gallbladder, spleen,pancreas, kidneys an d adrenal glands are unremarkable. No abdominal, pelvic oringuinal lymphadenop athy is identified. No free intraperitoneal fluid is noted.There is a ventral wall h ernia containing loops of what appear to be small bowelhowever are difficult to foll ow. There is mild perirectal stranding andpresacral edema correlate clinically. No dilated loops of bowel are identified.There is mild diverticulosis of the colon. The prostate, bladder and seminalvesicles appear unremarkable. The re are streak artifact obscuring portions ofthe pelvis due to a left hip ORIF. The re is subcutaneous gas identified alongthe right lower anterior pelvic wall.IMPRESS ION: There is a G-tube identified in the stomach. There is a tailcatheter identif ied on the left. The tip appears to be located below thediaphragm although is d ifficult to assess on CT. There is a small residualamount of pleural fluid as well as atelectasis along the left diaphragm. Thereis perirectal stranding and presacr al edema.Ct Thoracentesis Insrt Chest TubeResult Date: 12/19/2018History: Pleura l effusion. PROCEDURE: After being informed of the risks,benefits, and potential alt ernatives procedure informed consent was obtained.The patient was placed on the t able in the qusod-xewk-womv decubitus position.CT scanning was performed locat ion was chosen over the left flank. However, dueto the significant amount of patient motion and breathing motion was difficultto accurately assess a location for percuta neous paracentesis. Therefore, thiswas performed manually. After the chosen reg ion was prepped and draped in thenormal sterile fashion using maximum sterile ba rrier technique a lidocaineneedle was placed in the skin. This appeared to be in good position. Lidocainewas then used to anesthetize the skin and subcutaneous ti ssues in this location.Attempts were made to pass an 8 Congolese pigtail catheter throug h this location.However, patient continuous motion was significant as well as excess ivebreathing during the procedure. The catheter was placed at the same interspa ceas well as marked on the prior CT sequence however, due to the excessive patientmot ion the catheter was far more inferior within the chest that on the priorsequences. Th e catheter appeared to enter the hemiabdomen on the left from theleft chest. The cath eter was then pulled back to position where clear yellowfluid was aspirated. It was then sewn in position However, It appeared tomigrate forward and on the CT scanning appeared to again transgress thediaphragm. It was therefore pulled back to a point where only a clear fluid wasaspirated and respiratory variation was noted within t he tube. It was then sewnin position using 2-0 silk sutures. FINDINGS: Initial CT s debora revealed amoderate left pleural effusion. Attempts to nancy an adequate l ocation forpercutaneous thoracentesis were quite limited due to excessive patient m otionand breathing throughout the procedure. A location that appear to be a safelocat ion was marked. However, when the catheter was placed in this sameinterspace as wel l as marked the catheter appeared to be far more inferiorwithin the hemithorax than that seen previously. It appeared to enter the lefthemithorax inferiorly and transg ress the diaphragm with no evidence pathologicsequela. Therefore, it was pul led back into the pleural space for adequatedrainage. 130 cc of lightly bloo d-tinged fluid was aspirated. The catheter wasattached to a Pleur-evac and wall suc tion.IMPRESSION: Left-sided thoracentesis described above.Xr Chest PortResult Date : 12/18/2018Portable chest x-ray. PRIOR EXAM: 12/12/2018 and 11/25/2018 HISTORY: Pneumon ia andpleural effusions FINDINGS: The heart is normal in size. The mediastinum andpu lmonary vessels are unremarkable. There is haziness within the lung basesbilaterall y... The bony structures are intact.IMPRESSION: Haziness within the l eunice bases bilaterally that could representsmall pleural effusions and/or subsegmental atelectasis. Similar findings wereseen on prior exams.Xr Chest PortRes ult Date: 12/13/2018History: Respiratory difficulty. FINDINGS: A frontal portable view of the chestis compared to the prior study from earlier in the same day. EKG leads overliethe chest. The cardiac silhouette is normal in size. The left l eunice is clear. Theright lung is poorly evaluated due to significant rotation. T he possibility ofright basilar infiltrate or atelectatic change cannot be excluded. M ediastinaland hilar structures are poorly evaluated as well.IMPRESSION: Study quit e limited due to rotation. Opacity at the right lung basemay be infiltrative or at electatic in nature.Xr Chest PortResult Date: 12/12/2018History: Fever. Lethargy. FINDI NGS: 2 frontal views of the chest are compared tothe prior study of 11/25/2018. EKG leads overlie the chest. The cardiacsilhouette is normal in size. The re may be some streaky changes at the lungbases. Evaluation of the lungs and m ediastinal structures is quite limited dueto rotation.IMPRESSION: Study quite limited by rotation. Basilar streaks noted.Duplex Upper Ext Venous LeftResult Date: 019DUPLEX UPPER EXT VENOUS LEFT Clinical Data: Arm swelling, DVT suspectedFinding s: The visualized segments of the left upper extremity venous circulationfrom the lev el of the subclavian vein to the brachial vein is compressible andshows normal pha sic flow without an intraluminal thrombus. In addition, theinternal jugular vein an d the basilic vein is also patent. Extremely limitedexam because the patient was unab le to cooperate and this was done in a portablefashion.IMPRESSION: No evidence of deep vein thrombosis within the visualized left upperextremity venous circulation. Limited study.Medications reviewedCurrent Facility-Administered MedicationsMedicat ion Dose Route Frequency methylPREDNISolone (PF) (SOLU-MEDROL) injection 20 mg 20 m g IntraVENous Q12H dextrose 5% infusion 50 mL/hr IntraVENous CONTINUOUS haloperido l lactate (HALDOL) injection 2 mg 2 mg IntraVENous Q6H PRN acetaminophen (TYLE NOL) solution 650 mg 650 mg Per NG tube Q4H PRN albuterol-ipratropium (DUO-NEB) 2.5 MG-0.5 MG/3 ML 3 mL Nebulization Q4H PRN potassium, sodium phosphates (NEUTRA-JOCY S) packet 1 Packet 1 Packet Oral QID acetylcysteine (MUCOMYST) 100 mg/mL (10 %) nebulizer solution 200 mg 2 mLNebulization BID RT albuterol-ipratro pium (DUO-NEB) 2.5 MG-0.5 MG/3 ML 3 mL Nebulization Q6H RT bacitracin 500 unit /gram packet 1 Packet 1 Packet Topical BID piperacillin-tazobactam (ZOSYN) 3.375 g in 0.9% sodium chloride (MBP/ADV) 100mL MBP 3.375 g IntraVENous Q8H budesonide (PUL MICORT) 500 mcg/2 ml nebulizer suspension 500 mcg NebulizationBID RT lamoTRIgine (LaMICtal) tablet 50 mg 50 mg Per G Tube BID valproic acid (as sodium salt) (DEPAKEN E) 250 mg/5 mL (5 mL) oral solution 750mg 750 mg Per G Tube BID cinacalcet (SENSI PAR) tablet 60 mg 60 mg Oral DAILY pantoprazole (PROTONIX) granules for ora l suspension 40 mg 40 mg Per G TubeACB heparin (porcine) injection 5,000 Units 5,000 Units SubCUTAneous Q12H sodium chloride (NS) flush 5-10 mL 5-10 mL Int raVENous PRNAssessment/Plan:Hospital Problems Date Reviewed: 12/26/2018 Codes Cl ass Noted POA Sepsis due to undetermined organism (HCC) ICD-10-CM: A41.9ICD-9-CM: 038.9 12/12/2018 Unknown Pneumonia ICD-10-CM: J18.9ICD-9-CM: 486 11/08/2018 UnknownAssessment:Sepsis - poaAspiration PneumoniaAcute respiratory failure with Hypoxia andHypercapniaAcute COPD exacerbationDysphagia s/p surgical place d pegPleural EffusionFluid overloadLeukocytosis likely steroid brayden cedMentally challengedSeizureHyperparathyroidPlan:IV zosyn per IDO2 NC/ Nightly BIPAPPulmonary follow up nutrition f/u culturesnebulize rsGive Lasix 20 mg iv x 1 dose Off steroids S/P removal of Left pig tail catheterCar josé luis f/u cont officer captain medications D/W the pmo lead and pt 's RN suggest a tri al of bolusTF to reduce risk of aspiration.from the continuous [place] Elizondopt2018Time: 9:53 PM Name Value Range Interpretation Code Description Data [facility](s) Supporting Document(s ) ID Date Data Source [id number] 12/26/2018 08:19:27 PM EDT [facility] Bedside and Verbal shift change report g ankit to Shira RN (oncoming nurse) Cristina Blum, NANCY(offgoing nurse). Report g ivten with SBAR, Kardex, Intake/Output, MAR and RecentResults. Name Value Range Interpretation Code Description Data [facility](s) Supporting Document(s ) ID Date Data Source [id number] 12/26/2018 06:49:15 PM EDT [facility] Progress NoteMID-[facility] ,[facility].Krystian Monae MD., F.C.C.P.Stella Hamilton MD., F.C.C.P. [address]W [address] [facility] [address] [place] [id number] [place] [address] [phone]: Evelio Carlin Sex: male DOA: 12/12/2018Da te of : 1950 Age: 68 y.o. LOS: LOS: 14 daysSubjective:Mr. Maximiliano mata is a 68 y.o. year old male who is being seen for SEPSIS ,PNEUMONIA . LEF T CHEST TUBE IS NOT DRAINING , NEED TO COME OUT .Objective:Vital Signs:Patient Vitals for the past 24 hrs: BP Temp Pulse Resp SpO2 Nmexcf34/13/19 1545 94/78 98 F (36.7 C) 79 16 95 % -12/26/18 1118 96/81 98.2 F (36.8 C) 87 16 96 % -12/26/18 0 805 - - - - 94 % -12/26/18 0717 106/52 (!) 122.1 F (50.1 C) 72 18 97 % -12/26/18 0430 115/74 98.3 F (36.8 C) 71 18 97 % 55.4 kg (122 lb 1.6 oz)12/26/18 0208 - - - - 99 % -12/25/18 2350 92/60 98.5 F (36.9 C) 80 18 99 % -12/25/182014 123/77 98.3 F (36.8 C) 78 18 99 % -Pulse OX:SpO2 Readings from Last 6 Encounters:12/26/18 95%11/27 91%09/26/15 96%@LASTSAO2(6)@Physical Exam:MORE AWAKE , COMFORT BALE , MILD SOB General: Alert, cooperative, no distress, appears stated age. Head: Normocephalic, without obvious abnormality, atraumatic. Eyes : Conjunctivae/corneas clear. PERRL, EOMs intact. Nose: Nares normal. No drainage or sinus tenderness Throat: Lips, mucosa, and tongue jazzmine l Neck: Supple, symmetrical, trachea midline, no adenopathy,thyroid: no enlargement/tenderness/nodules, no carotid bruit and no JVD. Elham ngs: WHEEZING AND RHONCHI , RALES DECREASE to auscultationbilaterally. C hest Wall: No tenderness or deformity.LEFT PL, CATH NOT DRAINING Heart: Regular rate and rhythm, S1, S2 normal, no murmur, click,rub or gallop. Abdomen: Soft, non-tender. Bowel sounds normal. No masses, No organomegaly. Extremities: Extremities normal, atraumatic, no cyanosis or edema. Pulses: 4+ bilateral ly. Skin: Skin color, texture, turgor normal. No rashes or lesions. Ne urologic: CNII-XII intact. No focal motor or sensory deficit.Intake and Output:Las t three shifts: 12/24 1901 - 12/26 0700In: 3350 [I.V.:300]Out: 4225 [Urine:3000; Dr diehl:175]Lab Results:Recent Results (from the past 24 hour(s))GLUCOSE, POC Collection Time: 12/26/18 12:25 AMResult Value Ref Range Glucose, bedside 137 (H) 65 - 110 MG/DLR ENAL FUNCTION PANEL Collection Time: 12/26/18 3:10 AMResult Value Ref Range Sodium 13 6 136 - 145 mmol/L Potassium 4.9 3.5 - 5.1 mmol/L Chloride 99 98 - 107 mmol/L CO2 3 6 (H) 21 - 32 mmol/L Anion gap 6 (L) 10 - 20 mmol/L Glucose 96 74 - 106 mg/dL BUN 15 7 - 18 mg/dL Creatinine 0.39 (L) 0.70 - 1.30 mg/dL GFR est AA >60 >60 ml/min/1.73m2 G FR est non-AA >60 >60 ml/min/1.73m2 Calcium 9.0 8.5 - 10.1 mg/dL Phosphorus 2.4 (L) 2.5 - 4.9 mg/dL Albumin 2.1 (L) 3.5 - 4.7 g/dLMAGNESIUM Collection Time: 12/26/18 3:10 AMResult Value Ref Range Magnesium 1.8 1.6 - 2.6 mg/dLGLUCOSE, POC Collection T jose alejandro: 12/26/18 7:01 AMResult Value Ref Range Glucose, bedside 152 (H) 65 - 110 MG/OSCAR BC W/O DIFF Collection Time: 12/26/18 11:30 AMResult Value Ref Range WBC 13.7 (H) 4. 8 - 10.6 K/uL RBC 3.55 (L) 4.70 - 6.00 M/uL HGB 11.9 (L) 14.0 - 18.0 g/dL HCT 34.9 ( L) 42.0 - 52.0 % MCV 98.3 (H) 81.0 - 94.0 FL MCH 33.5 27.0 - 35.0 PG MCHC 34.1 30.7 - 37.3 g/dL RDW 17.1 (H) 11.5 - 14.0 % PLATELET 234 130 - 400 K/uL MPV 9.8 9.2 - 11.8 FLGLUCOSE, POC Collection Time: 12/26/18 12:13 PMResult Value Ref Range Glucose, bedside 133 (H) 65 - 110 MG/DLGLUCOSE, POC Collection Time: 12/26 5:29 PMResult Value Ref Range Glucose, bedside 80 65 - 110 MG/DLABG:Recent Labs 436PH 7.47*PCO2 51*PO2 67*HCO3 37*Recent Glucose Results:Lab ResultsCom ponent Value Date/Time GLU 96 12/26/2018 03:10 AM GLUCPOC 80 12/26/2018 05:29 PM GLUCPOC 133 (H) 12/26/2018 12:13 PM GLUCPOC 152 (H) 12/26/2018 07:01 AM@[email or web address] Micro Results Procedure Component Value Units Date/Patria e CULTURE, URINE [[id number]] Collected: 12/24/18 0945 Order Status: Completed S pecimen: Cath Urine Updated: 12/26/18 1146 Special Requests: NO SPECIAL REQUESTS C ulture result: NO GROWTH 2 DAYS CULTURE, BLOOD [[id number]] Collected: 12/23/18 1 140 Order Status: Completed Specimen: Blood Updated: 12/25/18616 Special Request s: NO SPECIAL REQUESTS Culture result: NO GROWTH 2 DAYS CULTURE, BLOOD [[id number]] Collected: 12/23/18 1200 Order Status: Completed Specimen: Blood Updated: 04/02 Special Requests: NO SPECIAL REQUESTS Culture result: NO GROWTH 2 DA YS CULTURE, ANAEROBIC [[id number]] Collected: 12/19/18 1230 Order Status: Completed S pecimen: Thoracentesis Updated: 12/24/18 1421 Special Requests: NO SPECIAL REQUE STS Culture result: NO GROWTH 4 DAYS CULTURE, BODY FLUID W GRAM STAIN [[id number]] Collected: 12/19/18 1230 Order Status: Completed Specimen: Left Updated: 12/14 1317 Special Requests: NO SPECIAL REQUESTS GRAM STAIN FEW WBC'S NO ORGA NISMS SEEN Culture result: NO GROWTH 4 DAYS CULTURE, BLOOD [[id number]] Collected: 0 12/12/181939 Order Status: Completed Specimen: Blood Updated: 12/17/18642 Special Requests: NO SPECIAL REQUESTS Culture result: NO GROWTH 5 DAYS CULTURE , BLOOD [[id number]] Collected: 12/12/181939 Order Status: Completed Specimen: Bloo d Updated: 12/17/18642 Special Requests: NO SPECIAL REQUESTS Culture result: NO GROWTH 5 DAYS CULTURE, URINE [[id number]] Collected: 12/12/182003 Order Status: Completed Specimen: Urine Updated: 12/14/18913 Special Requests: NO SPEC IAL REQUESTS Culture result: NO GROWTH 1 DAY CULTURE, URINE [[id number]] Collected: 0 12/12/181929 Order Status: Canceled Specimen: Cath UrineImages:@[email or web address] D@Xr Chest Sngl VResult Date: 12/25/2018Portable chest x-ray. PRIOR EXA M: X-ray 12/18/2018 HISTORY: Pneumonia FINDINGS:The heart is normal in size. Th e mediastinum and pulmonary vessels areunremarkable. There is a small right pleural effusion.. A tube projected overthe left upper quadrant of the abdomen..IMPR ESSION: Small right pleural effusion.Ct Chest Wo ContResult Date: 12/18/2018Referring Ph ysician: KRYSTIAN MONAE Patient Name: EVELIO CARLIN THIS IS AFINAL REPORT FROM [facility], [facility] DATE OF SERVICE: 2018-12-18 01:22:40 IMAGES:555 EXAM: CT CHEST WO CO NTRAST HISTORY: .. Right lower lobe atelectasis..TECHNIQUE: Helical axial im aging from the thoracic inlet through the adrenalglands without contrast. Sagittal and coronal reconstructions were obtained.COMPARISON: CT chest without co ntrast of 12/13/2018. FINDINGS: .. Evaluationremains limited due to lack of IV contrast and patient positioning. The imagedthyroid gland remains atrophic. Th e aorta remains normal in caliber.Atherosclerotic calcifications a re again seen in the aorta. There is againcardiomediastinal shift towards the right. The heart remains normal in size andno pericardial effusion is noted. No obvious lymphadenopathy seen on thisunenhanced scan. No pneumothorax is noted. Since the prior exam there is beenincrease in bilateral pleural effusi ons with associated consolidations. Acalcified granuloma is again seen in th e right lower lobe. The imaged upperabdomen does not demonstrate any gross acute maggy nges. Osteopenia is again noted.Degenerative changes again seen in the imaged spine. Old healed right posteriorlower rib fractures are again seen.IMPRESSION: .. Limited s tudy demonstrating increase in bilateral pleuraleffusions with associated consoli dations with persistent cardiomediastinal shifttowards the right. Stable findings as noted above.. One or more of the followingdose reduction techniques were used: automated exposure control, adjustment ofthe mA and/or kV according to patient size, use of iterative reconstructivetechnique. THIS DOCUMENT H BEEN ELECTRONICALLY SIGNED Kamran Gillette MD 12/18/2018 04:49 GINA Jenkins. Please call [facility] [employer] Consultant [phone]) with questions. This report was electronically signed by: Tala MENDEZ 12/18/2018 04: 50 [facility] [place] Chest Wo ContResult Date: 12/13/2018History: Respiratory difficulty . FINDINGS: CT scanning of the chest wasperformed helically from the lung api martine to the upper abdomen withoutintravenous contrast material. Sagittal and coronal reconstructed images aresubmitted. Scanning was performed utilizing dose lowering te chniques and iscompared to the prior study of 11/08/2018. The study is quite limited by patientpositioning. Evaluation of thoracic vascular structures is limited withoutin travenous contrast material does not reveal evidence of aneurysmal dilatationor defi nite CT evidence of dissection. Coronary artery calcification is seen.There is mi nimal calcification of the aortic arch. There is minimalcalcification of the descendin g thoracic aorta. There is no definite evidence ofany pathologically enlarged l ymph node in the visualized portions of themediastinum or axillae. Evaluation of pulmonary parenchymal structures revealssome atelectatic change in the right upper lo be. There is a small left pleuraleffusion as well as left basilar atelectatic change. There is some patchyopacity within the right middle lobe and right lower lobe which c ould also beinfiltrative in nature. Limited evaluation of upper abdominal structures isunremarkable. There is deviation of mediastinal structures to the right. Thi scould be as result of atelectatic change within the right lung. This has beenseen previously and is unchanged.IMPRESSION: Extremely limited study by patient posit ioning. Deviation ofmediastinal structures to the right as has been seen on prior stud ies. Leftpleural effusion. Bilateral infiltrates and atelectasis, greater on the rightthan the left.Cta Up Ext Lt W ContResult Date: 12/18/2018History: Arm cl audication. FINDINGS: CTA of the left upper extremity wasperformed helically from le ricky of the shoulder through the fingers after theintravenous administration of 119 cc of Isovue. Sagittal, coronal, and 3-Dreconstructed images obtained on an Realtime[employer] workstation are submitted. Noprior studies are available for comparison. Th e left subclavian artery is widelypatent. It is continuous with a widely patent left axillary artery. The axillaryartery is continuous with a widely patent left bra chial artery. The brachialartery bifurcates into a radial and ulnar artery just belo w the elbow. From thispoint distally streak artifact from patient positioning limits evaluation.However, the ulnar artery appears widely patent to the wrist. The radial a rteryis less well opacified but does appear patent to the wrist as well. Anintraosse ous artery also appears patent although it is poorly visualized aswell. The digital ar teries are not visualized on this study. There arebilateralpleural effusions note d both of which are moderate to large. Theeffusion on the left one is larger th an the right. Bibasilar atelectatic changethroughout much of the lower lobes is seen. There is a significant shift ofmediastinal structures to the right. T he liver is decreased in attenuationcompatible with fatty infiltr ation. The spleen is unremarkable. The adrenalglands are normal in appearance. The pancreas is grossly normal as is thegallbladder. A gastrostomy tube is no mikel in situ. The kidneys are unremarkable.There is a midline abdomina l wall hernia containing large and small bowel aswell as mesentery without eviden ce of obstruction. There is some presacralthickening and possibly some fr ee fluid noted. The patient is status post ORIFof the left hip with metallic hardwa re in situ.IMPRESSION: Patent left upper extremity arterial vessels although eval uationdistally is limited. Bilateral pleural effusions and bibasilar atelectasis.Shif t of mediastinal structures to the right.Ct Abd Pelv Wo ContResult Date: 12/21/2018His tory: ? Maturity of g-tube tract Technique: CT of the abdomen and pelvis wasperforme d from the dome of the diaphragm to the pubic symphysis without oral orintravenous con trast with dose lowering techniques. Sagittal and coronalreconstructions were performe d. Evaluation of solid abdominal viscera iscompromised by by the lack of intraven ous contrast. Evaluation of the bowelloops is compromised lack of oral contrast. All C T scans at this facility areperformed using dose optimization technique as appropria te to a performed exam,to include automated exposure control, adjustment of the mA a nd/or kV accordingto patient size (including appropriate matching first site-specific examinations), or use of iterative reconstruction technique. Comparison: CT scanof the chest performed 12/19/18 Findings: There is a small right pleural effusionw ith adjacent atelectasis. There is minimal left pleural fluid with adjacentatelecta sis. There is a pigtail catheter again identified on the left. The exactlocatio n of this catheter is difficult to ascertain benefits above the diaphragmto below the diaphragm. On today's study the tip appears to be located below thediaphragm. There is a small right pleural effusion with adjacent atelectasis.There is a G-tube i dentified in the stomach. The liver, gallbladder, spleen,pancreas, kidneys an d adrenal glands are unremarkable. No abdominal, pelvic oringuinal lymphadenop athy is identified. No free intraperitoneal fluid is noted.There is a ventral wall h ernia containing loops of what appear to be small bowelhowever are difficult to foll ow. There is mild perirectal stranding andpresacral edema correlate clinically. No dilated loops of bowel are identified.There is mild diverticulosis of the colon. The prostate, bladder and seminalvesicles appear unremarkable. The re are streak artifact obscuring portions ofthe pelvis due to a left hip ORIF. The re is subcutaneous gas identified alongthe right lower anterior pelvic wall.IMPRESS ION: There is a G-tube identified in the stomach. There is a tailcatheter identif ied on the left. The tip appears to be located below thediaphragm although is d ifficult to assess on CT. There is a small residualamount of pleural fluid as well as atelectasis along the left diaphragm. Thereis perirectal stranding and presacr al edema.Ct Thoracentesis Insrt Chest TubeResult Date: 12/19/2018History: Pleura l effusion. PROCEDURE: After being informed of the risks,benefits, and potential alt ernatives procedure informed consent was obtained.The patient was placed on the t able in the [id number] decubitus position.CT scanning was performed locat ion was chosen over the left flank. However, dueto the significant amount of patient motion and breathing motion was difficultto accurately assess a location for percuta neous paracentesis. Therefore, thiswas performed manually. After the chosen reg ion was prepped and draped in thenormal sterile fashion using maximum sterile ba rrier technique a lidocaineneedle was placed in the skin. This appeared to be in good position. Lidocainewas then used to anesthetize the skin and subcutaneous ti ssues in this location.Attempts were made to pass an 8 Congolese pigtail catheter throug h this location.However, patient continuous motion was significant as well as excess ivebreathing during the procedure. The catheter was placed at the same interspa ceas well as marked on the prior CT sequence however, due to the excessive patientmot ion the catheter was far more inferior within the chest that on the priorsequences. Th e catheter appeared to enter the hemiabdomen on the left from theleft chest. The cath eter was then pulled back to position where clear yellowfluid was aspirated. It was then sewn in position However, It appeared tomigrate forward and on the CT scanning appeared to again transgress thediaphragm. It was therefore pulled back to a point where only a clear fluid wasaspirated and respiratory variation was noted within t he tube. It was then sewnin position using 2-0 silk sutures. FINDINGS: Initial CT s debora revealed amoderate left pleural effusion. Attempts to nancy an adequate l ocation forpercutaneous thoracentesis were quite limited due to excessive patient m otionand breathing throughout the procedure. A location that appear to be a safelocat ion was marked. However, when the catheter was placed in this sameinterspace as wel l as marked the catheter appeared to be far more inferiorwithin the hemithorax than that seen previously. It appeared to enter the lefthemithorax inferiorly and transg ress the diaphragm with no evidence pathologicsequela. Therefore, it was pul led back into the pleural space for adequatedrainage. 130 cc of lightly bloo d-tinged fluid was aspirated. The catheter wasattached to a Pleur-evac and wall suc tion.IMPRESSION: Left-sided thoracentesis described above.Xr Chest PortResult Date : 12/18/2018Portable chest x-ray. PRIOR EXAM: 12/12/2018 and 11/25/2018 HISTORY: Pneumon ia andpleural effusions FINDINGS: The heart is normal in size. The mediastinum andpu lmonary vessels are unremarkable. There is haziness within the lung basesbilaterall y... The bony structures are intact.IMPRESSION: Haziness within the l eunice bases bilaterally that could representsmall pleural effusions and/or subsegmental atelectasis. Similar findings wereseen on prior exams.Xr Chest PortRes ult Date: 12/13/2018History: Respiratory difficulty. FINDINGS: A frontal portable view of the chestis compared to the prior study from earlier in the same day. EKG leads overliethe chest. The cardiac silhouette is normal in size. The left l eunice is clear. Theright lung is poorly evaluated due to significant rotation. T he possibility ofright basilar infiltrate or atelectatic change cannot be excluded. M ediastinaland hilar structures are poorly evaluated as well.IMPRESSION: Study quit e limited due to rotation. Opacity at the right lung basemay be infiltrative or at electatic in nature.Xr Chest PortResult Date: 12/12/2018History: Fever. Lethargy. FINDI NGS: 2 frontal views of the chest are compared tothe prior study of 11/25/2018. EKG leads overlie the chest. The cardiacsilhouette is normal in size. The re may be some streaky changes at the lungbases. Evaluation of the lungs and m ediastinal structures is quite limited dueto rotation.IMPRESSION: Study quite limited by rotation. Basilar streaks noted.Duplex Upper Ext Venous LeftResult Date: 019DUPLEX UPPER EXT VENOUS LEFT Clinical Data: Arm swelling, DVT suspectedFinding s: The visualized segments of the left upper extremity venous circulationfrom the lev el of the subclavian vein to the brachial vein is compressible andshows normal pha sic flow without an intraluminal thrombus. In addition, theinternal jugular vein an d the basilic vein is also patent. Extremely limitedexam because the patient was unab le to cooperate and this was done in a portablefashion.IMPRESSION: No evidence of deep vein thrombosis within the visualized left upperextremity venous circulation. Limited study.Medications:Current Facility-Administered MedicationsMedicat ion Dose Route Frequency methylPREDNISolone (PF) (SOLU-MEDROL) injection 20 mg 20 m g IntraVENous Q12H dextrose 5% infusion 50 mL/hr IntraVENous CONTINUOUS haloperido l lactate (HALDOL) injection 2 mg 2 mg IntraVENous Q6H PRN acetaminophen (TYLE NOL) solution 650 mg 650 mg Per NG tube Q4H PRN albuterol-ipratropium (DUO-NEB) 2.5 MG-0.5 MG/3 ML 3 mL Nebulization Q4H PRN potassium, sodium phosphates (NEUTRA-JOCY S) packet 1 Packet 1 Packet Oral QID acetylcysteine (MUCOMYST) 100 mg/mL (10 %) nebulizer solution 200 mg 2 mLNebulization BID RT albuterol-ipratro pium (DUO-NEB) 2.5 MG-0.5 MG/3 ML 3 mL Nebulization Q6H RT bacitracin 500 unit /gram packet 1 Packet 1 Packet Topical BID piperacillin-tazobactam (ZOSYN) 3.375 g in 0.9% sodium chloride (MBP/ADV) 100mL MBP 3.375 g IntraVENous Q8H budesonide (PUL MICORT) 500 mcg/2 ml nebulizer suspension 500 mcg NebulizationBID RT lamoTRIgine (LaMICtal) tablet 50 mg 50 mg Per G Tube BID valproic acid (as sodium salt) (DEPAKEN E) 250 mg/5 mL (5 mL) oral solution 750mg 750 mg Per G Tube BID cinacalcet (SENSI PAR) tablet 60 mg 60 mg Oral DAILY pantoprazole (PROTONIX) granules for ora l suspension 40 mg 40 mg Per G TubeACB heparin (porcine) injection 5,000 Units 5,000 Units SubCUTAneous Q12H sodium chloride (NS) flush 5-10 mL 5-10 mL Int raVENous PRNActive Problems: Pneumonia (11/08/2018) Sepsis due to undetermined organism (HCC) (12/12/2018)Assessment: Chronic obstructive pulmonary disease (HCC) G ERD (gastroesophageal reflux disease) Hyperparathyroidism (HCC) Mental concetta rdation 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) Pneumonia Psychiatric disorder Pul monary emboli (HCC) Schizophrenia (HCC) ACUTE RESPIRATORY FAILURE METABOLIC EN CEPHALOPATHY LEFT PLEURAL CATH NOT DRAINING FLUID pLAN PATIENT IS NOT CLEARED FOR P E G INSERTION YET DUE TO ACUTERESPIRATORY DISTRESS BIAPAP AT NIGHT NASAL CANNULA DAY TIME D/ C PREDNISONE RESTART SOLUMEDROL 40 M G Q 8 H I V ZOSYN IF HE DETERIORATES MAY NEED INTUBATION PROGNOSIS IS GUA RDED DISCONTINUE LEFT PLEURAL CATH BYRADIOLOGIST IN CAT SCAN TODAY Krystian Monae MD F.C.C.P.December 26, 20186:45 PM Name Value Range Interpretation Code Description Data Harriett rce(s) Supporting Document(s ) ID Date Data Source [id number] 12/26/2018 05:52:24 PM EDT [facility] Pt for pig tail removal in ct. Tolerated well. Dressing to l upper back d&i.Bolus feed via g tube performed as ordered Name Value Range Interpretation Code Description Data Harriett rce(s) Supporting Document(s ) ID Date Data Source [id number] 12/26/2018 05:42:45 PM EDT [facility] Name Value Range Interpretation Description Data Sup porting Code Source(s) Document(s ) Glucose 80 MG/DL 65-110 [facility] [Mass/volume] [facility] in Blood by Hospital Automated test strip ID Date Data Source [id number] 12/26/2018 04:54:57 PM EDT [facility] DUPLEX UPPER EXT VENOUS LEFTClinical Pan a: Arm swelling, DVT suspectedFindings: The visualized segments of the left upper ex tremity venous circulationfrom the level of the subclavian vein to the brachial vein is compressible andshows normal phasic flow without an intraluminal thrombus. In ad dition, the internal jugular vein and the basilic vein is also patent.Extremely li mited exam because the patient was unable to cooperate and this wasdone in a portable fashion.IMPRESSION: No evidence of deep vein thrombosis within the visualized left up per extremity venous circulation. Limited study. Signing date/time: 12/26/2018 4:5 4 PMSigned by: HIGINIO BLACKWELL Name Value Range Interpretation Code Description Data Harriett rce(s) Supporting Document(s ) ID Date Data Source [id number] 12/26/2018 04:12:09 PM EDT [facility] ID Progress Note12/26/2018Patient is non verbal,unable to provide any historyAfebrileObjective:Vitals:Patient Vitals for the past 24 hrs: BP Temp Pulse Resp SpO2 Pezwqm20/13/19 1545 94/78 98 F (36.7 C) 79 16 95 % -12/26/18 1118 96/81 98.2 F (36.8 C) 87 16 96 % -12/26/18 0 805 - - - - 94 % -12/26/18 0717 106/52 (!) 122.1 F (50.1 C) 72 18 97 % -12/26/18 0430 115/74 98.3 F (36.8 C) 71 18 97 % 55.4 kg (122 lb 1.6 oz)12/26/18 0208 - - - - 99 % -12/25/18 2350 92/60 98.5 F (36.9 C) 80 18 99 % -12/25/182014 123/77 98.3 F (36.8 C) 78 18 99 % -Tmax: Temp (24hrs), Av.2 F (39 C), Min:98 F (36.7 C ), Max:122.1 F(50.1 C)Physical Exam:General: Awake non verbal, coopera tive, no distressMouth/Throat: Dry oral, mucosaNeck: Supple, symmetrical, trachea midline, no adenopathyLungs: Decrease breath sounds at bases.Heart: Regular r ate and rhythm, S1, S2 normal, no murmurAbdomen: Soft, non-tender. Bowel sounds normal. No masses, No organomegaly.+feeding tubeBack: No CVA tenderness.Extremities: Extremities normal, atraumatic, no cyanosis or edema.Pulses: 2+ and symmetric all extremities.Skin: Skin color, texture, turgor normal. No rashes or lesionsCurrent Facility-Administered MedicationsMedication Dose Route Frequen cy methylPREDNISolone (PF) (SOLU-MEDROL) injection 20 mg 20 mg IntraVENous Q12H dextrose 5% infusion 50 mL/hr IntraVENous CONTINUOUS haloperidol lactate (HALDOL) injection 2 mg 2 mg IntraVENous Q6H PRN acetaminophen (TYLENOL) solution 650 mg 650 mg Per NG tube Q4H PRN albuterol-ipratropium (DUO-NEB) 2.5 MG-0 .5 MG/3 ML 3 mL Nebulization Q4H PRN potassium, sodium phosphates (NEUTRA-JOCY S) packet 1 Packet 1 Packet Oral QID acetylcysteine (MUCOMYST) 100 mg/mL (10 %) nebulizer solution 200 mg 2 mLNebulization BID RT albuterol-ipratro pium (DUO-NEB) 2.5 MG-0.5 MG/3 ML 3 mL Nebulization Q6H RT bacitracin 500 unit /gram packet 1 Packet 1 Packet Topical BID piperacillin-tazobactam (ZOSYN) 3.375 g in 0.9% sodium chloride (MBP/ADV) 100mL MBP 3.375 g IntraVENous Q8H budesonide (PUL MICORT) 500 mcg/2 ml nebulizer suspension 500 mcg NebulizationBID RT lamoTRIgine (LaMICtal) tablet 50 mg 50 mg Per G Tube BID valproic acid (as sodium salt) (DEPAKEN E) 250 mg/5 mL (5 mL) oral solution 750mg 750 mg Per G Tube BID cinacalcet (SENSI PAR) tablet 60 mg 60 mg Oral DAILY pantoprazole (PROTONIX) granules for ora l suspension 40 mg 40 mg Per G TubeACB heparin (porcine) injection 5,000 Units 5,000 Units SubCUTAneous Q12H sodium chloride (NS) flush 5-10 mL 5-10 mL Int raVENous PRNLabs:Recent Labs 12/26/1902WB C 13.7* -- -- --HGB 11.9* -- -- --PLT 234 -- -- --BUN -- 15 12 9C SHILO -- 0.39* 0.44* 0.36*Cultures:Lab ResultsComponent Value Date/Time Culture result: NO GROWTH 2 DAYS 12/24/2018 09:45 AM Culture result: NO GROWTH 2 DAYS 019 12:00 PM Culture result: NO GROWTH 2 DAYS 12/23/2018 11:40 AMRadiology:No results found.Assessment: Sepsis. Aspiration pneumonia. Acute respiratory failure wi th hypoxia and hypercapnia. Acute COPD exacerbation. Dysphagia. Atelectasis. Pleural effusion. Leukocytosis (pt on steriods) Plan:1. Continue IV zosyn2. Follow repeat blood cx and UA, UCx3. Follow cultures f/u CBCFolujess Dudley, MDSeptember 20184:09 PM Name Value Range Interpretation Code Description Data Harriett rce(s) Supporting Document(s ) ID Date Data Source [id number] 12/26/2018 01:17:00 PM EDT [facility] Patient brought to CT for removal of Nelda st tube. Dr Murillo attends and proceduredone without incident. DSD applied and transp orted to floor. Repot to floor. Name Value Range Interpretation Code Description Data Harriett rce(s) Supporting Document(s ) ID Date Data Source [id number] 12/26/2018 12:35:00 PM EDT [facility] Name Value Range Interpretation Description Data Sup porting Code Source(s) Document(s ) Glucose 133 MG/DL 65-110 Above high normal [facility] [Mass/volume] [facility] in Blood by Hospital Automated test strip ID Date Data Source [id number] 12/26/2018 12:40:25 PM EDT [facility] Name Value Range Interpretation Description Data Sup porting Code Source(s) Document(s ) Leukocytes 13.7 4.8-10.6 Above high normal [facility] - [#/volume] in K/uL [facility] Erythrocytes 3.55 4.70-6.0 Below low normal [facility] - [#/volume] in M/uL 0 [facility] Hemoglobin 11.9 14.0-18. Below low normal [facility] - [Mass/volume] in g/dL 0 Good Blood [facility] Hematocrit 34.9 % 42.0-52. Below low normal [facility] - [Volume 0 Good Fraction] of Taoist Blood by Hospital Automated count Erythrocyte mean 98.3 FL 81.0-94. Above high normal [facility] - corpuscular 0 Good volume [Entitic Taoist volume] by Hospital Automated count Erythrocyte mean 33.5 PG 27.0-35. [facility] - corpuscular 0 Good hemoglobin Taoist [Entitic mass] Hospital by Automated count Erythrocyte mean 34.1 30.7-37. [facility] - corpuscular g/dL 3 Good hemoglobin Taoist concentration [facility] [Mass/volume] by Automated count Erythrocyte 17.1 % 11.5-14. Above high normal [facility] - distribution 0 Good width [Ratio] by Taoist Automated count Hospital Platelets 234 K/uL 130-400 [facility] - [#/volume] in Good Blood by Taoist Automated count Hospital Platelet mean 9.8 FL 9.2-11.8 [facility] - volume [Entitic Good volume] in Blood [facility] Automated Hospital count ID Date Data Source [id number] 12/26/2018 10:07:14 AM EDT [facility] - [facility] 12/26/2018Patient: [facility]vel[facility] AbrahambeinDOB: [facility] Physician: Mili Hills DOCHIEF COMPLAINT:Chief Complai ntPatient presents with Lethargy FeverHISTORY OF PRESENT ILLNESS: The dayanara tong is a 68 y.o. year old male I am askedto see b/o fluid overload.Pt presented to [facility] from [facility] 12/12/18 with fever, lethargy treated forpneumonia & sepsis.P t Previously hospitalized for dysphagia s/p surgical PEG 11/17/18. Pt has severeintell ectual disability, schizophrenia, seizure disorder, hyperparathyroidism,chronic re spiratory failure, kyphosis & pulmonary embolism. Pt is s/p left CTthoracentesis & pigtail catheter 12/22/18. G tube was to be replaced with J tubeto decrease aspirati on but pt's respiratory status deteriorated. ElevatedNT-proBNP noted. Pt is nonverbal . 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 No pertinent surgical history.MEDICATIONS:M edications Prior to AdmissionMedication Sig pantoprazole (PROTONIX) 40 mg granules f or oral suspension 40 mg by Per G Tuberoute Daily (before breakfast). budesonide (P ULMICORT) 0.5 mg/2 mL nbsp 2 mL by Nebulization route two (2)times a day fo r 30 days. multivitamin (ONE A DAY) tablet Take 1 Tab by mouth daily. clorazepate (TRANXENE) 3.75 mg tablet Take by mouth nightly. albuterol-ipratropium (DUO-NEB ) 2.5 mg-0.5 mg/3 ml nebu 3 mL by Nebulizationroute every six (6) hours as needed. lamoTRIgine (LAMICTAL) 25 mg tablet Take 50 mg by mouth two (2) times a day. cinacalcet (SENSIPAR) 30 mg tablet Take 60 mg by mouth daily. valproate (DEPAKENE) 250 mg/5 mL syrup Take 750 mg by mouth two (2) times aday.Current Facility-Administ ered MedicationsMedication Dose Route Frequency Provider Last Rate Last Dose furosemide (LASIX) injection 20 mg 20 mg IntraVENous ONCE Mili Hills DO me thylPREDNISolone (PF) (SOLU-MEDROL) injection 20 mg 20 mg IntraVENous [id number] Angelo MD 20 mg at 12/25/18 2203 dextrose 5% infusion 50 mL/hr IntraVENous CONTINUOU S Oralia Frankel MD 50mL/hr at 12/23/18 1715 50 mL/hr at 12/23/18 1715 haloperidol l actate (HALDOL) injection 2 mg 2 mg IntraVENous Q6H PRN Stella Hamilton MD 2 mg at 12/22/18 2306 acetaminophen (TYLENOL) solution 650 mg 650 mg Per NG tube Q4H PRN Mili Hills DO 650 mg at 12/19/18 1818 albuterol-ipratropium (DU O-NEB) 2.5 MG-0.5 MG/3 ML 3 mL Nebulization Q4H PRMili Murphy DO 3 mL at 07/01 0417 potassium, sodium phosphates (NEUTRA-PHOS) packet 1 Packet 1 Packet Oral Krystian Grey MD 1 Packet at 12/25/18 2204 acetylcysteine (MUCOMYST) 100 mg/mL (10 %) nebulizer solution 200 mg 2 mLNebulization BID RT Mili Hills, 200 mg at 12/26/18 0802 albuterol-ipratropium (DUO-NEB) 2.5 MG-0 .5 MG/3 ML 3 mL Nebulization Q6H RTMili Hills, 3 mL at 12/26/18 0802 main itracin 500 unit/gram packet 1 Packet 1 Packet Topical BID Mili Hills, 1 Packet at 12/25/18 220 piperacillin-tazobactam (ZOSYN) 3.375 g in 0.9% sodium chloride (MBP/ADV) 100mL MBP 3.375 g IntraVENous Q8H Van Plunkett MD 25 mL/hr at 12/26/18 61039.375 g at 12/26/18 0512 budesonide (PULMICORT) 50 0 mcg/2 ml nebulizer suspension 500 mcg NebulizationBID RT Van Plunkett MD 500 mcg at 12/26/18 0802 lamoTRIgine (LaMICtal) tablet 50 mg 50 mg Per G Tub e BID Van Plunkett MD50 mg at 12/25/18 220 valproic acid (as sodium salt) (DE PAKENE) 250 mg/5 mL (5 mL) oral solution 750mg 750 mg Per G Tube BID Christine Plunkett MD 750 mg at 12/25/18 220 cinacalcet (SENSIPAR) tablet 60 mg 60 mg Oral KYLEIGH Y Van Plunkett MD 60mg at 12/25/18 0942 pantoprazole (PROTONIX) granules for ora l suspension 40 mg 40 mg Per G TubeACB Van Plunkett MD 40 mg at 12/25/18 0942 h eparin (porcine) injection 5,000 Units 5,000 Units SubCUTAneous Q12H Van Plunkett M D 5,000 Units at 12/25/18 2302 sodium chloride (NS) flush 5-10 mL 5-10 mL Int raVENous PRN Van Plunkett MDALLERGIES:No Known AllergiesSOCIAL HISTORY:Social His torySocioeconomic History Marital status: SINGLE Spouse name: Not on file Number of children: Not on file Years of education: Not on file Highest educatio n level: Not on fileTobacco Use Smoking status: Never Smoker Smokeless tobacco: Never UsedSubstance and Sexual Activity Alcohol use: No Drug use: NoFAMILY HIST ORY:History reviewed. No pertinent family history.REVIEW OF SYSTEMS: unobtainable due to patient factorsPHYSICAL EXAM:Visit VitalsBP 106/52 (BP 1 Location: Left arm , BP Patient Position: At rest;Head of bedelevated (Comment degrees))Pulse 72Te mp (!) 122.1 F (50.1 C)Resp 18Ht 5' 2" (1.575 m)Wt 122 lb 1.6 oz (55.4 kg)SpO2 94%BMI 22.33 kg/m SpO2 Readings from Last 6 Encounters:12/26/18 94%11/27/18 91%09/25 96% O2 Flow Rate (L/min): 6 l/minIntake/Output Summary (Last 24 hour s) at 12/26/2018 0946Last data filed at 12/26/2018 0604Gross per 24 hourIntake 23 25 mlOutput 3225 mlNet -900 mlGeneral Appearance: Well developed, well nourish ed, in no acute distressrestrained with mittsHead: Normocephalic/atraumaticEyes: EOM'S intact, conjunctiva pink, sclera non ictericENT: Grossly normalNeck: Trace JV D, carotid upstroke brisk, no bruit, no thyromegalyChest: Clear to auscultation anteriorlyCardiac: Regular rhythm, normal S1 S2 no murmurs or gallopsAbdomen: Soft, n on-tender, no organomegaly +PEGExtremities: No lower extremity edemaNeuro: Awake, al ert, nonverbal, no focal deficitsPsych: AnxiousSkin: Warm, dry +excoriations, di scolored below right nostrilData Review:Labs:Recent Results (from the pas t 36 hour(s))GLUCOSE, POC Collection Time: 12/25/18 12:02 AMResult Value Ref Range Glucose, bedside 146 (H) 65 - 110 MG/DLRENAL FUNCTION PANEL Collection Time: 12/25/18 3:15 AMResult Value Ref Range Sodium 139 136 - 145 mmol/L Potassium 4.8 3.5 - 5.1 mmol/L Chloride 99 98 - 107 mmol/L CO2 34 (H) 21 - 32 mmol/L Anion gap 11 10 - 20 mmol/L Glucose 182 (H) 74 - 106 mg/dL BUN 12 7 - 18 mg/dL Creatinine 0.44 (L) 0.70 - 1.30 mg/dL GFR est AA >60 >60 ml/min/1.73m2 GFR est non-AA >60 >60 ml/min/1.73m2 Inez cium 9.0 8.5 - 10.1 mg/dL Phosphorus 3.0 2.5 - 4.9 mg/dL Albumin 1.9 (L) 3.5 - 4.7 g/ dLMAGNESIUM Collection Time: 12/25/18 3:15 AMResult Value Ref Range Magnesium 2.1 1 .6 - 2.6 mg/dLNT-PRO BNP Collection Time: 12/25/18 3:15 AMResult Value Ref Range NT pro-BNP 2,137 (H) 0 - 125 PG/MLGLUCOSE, POC Collection Time: 12/25/18 6:27 AMRe sult Value Ref Range Glucose, bedside 136 (H) 65 - 110 MG/DLGLUCOSE, POC Collection Ti me: 12/25/18 12:27 PMResult Value Ref Range Glucose, bedside 118 (H) 65 - 110 MG/DLB LOOD GAS, ARTERIAL Collection Time: 12/25/18 2:36 PMResult Value Ref Range pH 7.47 (H ) 7.35 - 7.45 PCO2 51 (H) 32 - 48 mmHg PO2 67 (L) 83 - 108 mmHg CO2, TOTAL 39 (H) 19 - 24 mmol/L BICARBONATE 37 (H) 21 - 28 mmol/L O2 SAT 96 94 - 98 % BASE EXCESS 11.5 (H) 0 - 3 mmol/L SITE RIGHT RADIAL MIRANDA'S TEST POSITIVE DEVICE NASAL O2 O2 FLOW 6 L/min Performed by [id number], POC Collection Time: 12/25/18 4:22 PMResult Value Ref Range Glucose, bedside 135 (H) 65 - 110 MG/DLGLUCOSE, POC Collection Time: 12/26 12:25 AMResult Value Ref Range Glucose, bedside 137 (H) 65 - 110 MG/DLRENAL FUNC TION PANEL Collection Time: 12/26/18 3:10 AMResult Value Ref Range Sodium 136 136 - 145 mmol/L Potassium 4.9 3.5 - 5.1 mmol/L Chloride 99 98 - 107 mmol/L CO2 36 (H) 2 1 - 32 mmol/L Anion gap 6 (L) 10 - 20 mmol/L Glucose 96 74 - 106 mg/dL BUN 15 7 - 18 mg/dL Creatinine 0.39 (L) 0.70 - 1.30 mg/dL GFR est AA >60 >60 ml/min/1.73m2 GFR est non-AA >60 >60 ml/min/1.73m2 Calcium 9.0 8.5 - 10.1 mg/dL Phosphorus 2.4 (L) 2.5 - 4. 9 mg/dL Albumin 2.1 (L) 3.5 - 4.7 g/dLMAGNESIUM Collection Time: 12/26/18 3:10 AMResult Value Ref Range Magnesium 1.8 1.6 - 2.6 mg/dLGLUCOSE, POC Collection T jose alejandro: 12/26/18 7:01 AMResult Value Ref Range Glucose, bedside 152 (H) 65 - 110 MG/DLI maging: Xr Chest Sngl VResult Date: 12/25/2018Portable chest x-ray. PRIOR EXA M: X-ray 12/18/2018 HISTORY: Pneumonia FINDINGS:The heart is normal in size. Th e mediastinum and pulmonary vessels areunremarkable. There is a small right pleural effusion.. A tube projected overthe left upper quadrant of the abdomen..IMPR ESSION: Small right pleural effusion.Ct Chest Wo ContResult Date: 12/18/2018Referring Ph ysician: CHASIDYJOSE DOV Patient Name: EVELIO CARLIN THIS IS AFINAL REPORT FROM [facility] DATE OF SERVICE: 2018-12-18 01:22:40 IMAGES:555 EXAM: CT CHEST WO CO NTRAST HISTORY: .. Right lower lobe atelectasis..TECHNIQUE: Helical axial im aging from the thoracic inlet through the adrenalglands without contrast. Sagittal and coronal reconstructions were obtained.COMPARISON: CT chest without co ntrast of 12/13/2018. FINDINGS: .. Evaluationremains limited due to lack of IV contrast and patient positioning. The imagedthyroid gland remains atrophic. Th e aorta remains normal in caliber.Atherosclerotic calcifications a re again seen in the aorta. There is againcardiomediastinal shift towards the right. The heart remains normal in size andno pericardial effusion is noted. No obvious lymphadenopathy seen on thisunenhanced scan. No pneumothorax is noted. Since the prior exam there is beenincrease in bilateral pleural effusi ons with associated consolidations. Acalcified granuloma is again seen in th e right lower lobe. The imaged upperabdomen does not demonstrate any gross acute maggy nges. Osteopenia is again noted.Degenerative changes again seen in the imaged spine. Old healed right posteriorlower rib fractures are again seen.IMPRESSION: .. Limited s tudy demonstrating increase in bilateral pleuraleffusions with associated consoli dations with persistent cardiomediastinal shifttowards the right. Stable findings as noted above.. One or more of the followingdose reduction techniques were used: automated exposure control, adjustment ofthe mA and/or kV according to patient size, use of iterative reconstructivetechnique. THIS DOCUMENT H BEEN ELECTRONICALLY SIGNED Kamran Gillette MD 12/18/2018 04:49 GINA Verde Please call [facility] [employer] Consult[facility] [phone] with questions. This report was electronically signed by: Tala MENDEZ 12/18/2018 04: 50 AMCt Chest Wo ContResult Date: 12/13/2018History: Respiratory difficulty . FINDINGS: CT scanning of the chest wasperformed helically from the lung api martine to the upper abdomen withoutintravenous contrast material. Sagittal and coronal reconstructed images aresubmitted. Scanning was performed utilizing dose lowering te cain and iscompared to the prior study of 11/08/2018. The study is quite limited by patientpositioning. Evaluation of thoracic vascular structures is limited withoutin travenous contrast material does not reveal evidence of aneurysmal dilatationor defi nite CT evidence of dissection. Coronary artery calcification is seen.There is mi nimal calcification of the aortic arch. There is minimalcalcification of the descendin g thoracic aorta. There is no definite evidence ofany pathologically enlarged l ymph node in the visualized portions of themediastinum or axillae. Evaluation of pulmonary parenchymal structures revealssome atelectatic change in the right upper lo be. There is a small left pleuraleffusion as well as left basilar atelectatic change. There is some patchyopacity within the right middle lobe and right lower lobe which c ould also beinfiltrative in nature. Limited evaluation of upper abdominal structures isunremarkable. There is deviation of mediastinal structures to the right. Thi scould be as result of atelectatic change within the right lung. This has beenseen previously and is unchanged.IMPRESSION: Extremely limited study by patient posit ioning. Deviation ofmediastinal structures to the right as has been seen on prior stud ies. Leftpleural effusion. Bilateral infiltrates and atelectasis, greater on the rightthan the left.Cta Up Ext Lt W ContResult Date: 12/18/2018History: Arm cl audication. FINDINGS: CTA of the left upper extremity wasperformed helically from le ricky of the shoulder through the fingers after theintravenous administration of 119 cc of Isovue. Sagittal, coronal, and 3-Dreconstructed images obtained on an RealtimeBoard workstation are submitted. Noprior studies are available for comparison. Th e left subclavian artery is widelypatent. It is continuous with a widely patent left axillary artery. The axillaryartery is continuous with a widely patent left bra chial artery. The brachialartery bifurcates into a radial and ulnar artery just belo w the elbow. From thispoint distally streak artifact from patient positioning limits evaluation.However, the ulnar artery appears widely patent to the wrist. The radial a rteryis less well opacified but does appear patent to the wrist as well. Anintraosse ous artery also appears patent although it is poorly visualized aswell. The digital ar teries are not visualized on this study. There arebilateralpleural effusions note d both of which are moderate to large. Theeffusion on the left one is larger th an the right. Bibasilar atelectatic changethroughout much of the lower lobes is seen. There is a significant shift ofmediastinal structures to the right. T he liver is decreased in attenuationcompatible with fatty infiltr ation. The spleen is unremarkable. The adrenalglands are normal in appearance. The pancreas is grossly normal as is thegallbladder. A gastrostomy tube is no mikel in situ. The kidneys are unremarkable.There is a midline abdomina l wall hernia containing large and small bowel aswell as mesentery without eviden ce of obstruction. There is some presacralthickening and possibly some fr ee fluid noted. The patient is status post ORIFof the left hip with metallic hardwa re in situ.IMPRESSION: Patent left upper extremity arterial vessels although eval uationdistally is limited. Bilateral pleural effusions and bibasilar atelectasis.Shif t of mediastinal structures to the right.Ct Abd Pelv Wo ContResult Date: 12/21/2018His tory: ? Maturity of g-tube tract Technique: CT of the abdomen and pelvis wasperforme d from the dome of the diaphragm to the pubic symphysis without oral orintravenous con trast with dose lowering techniques. Sagittal and coronalreconstructions were performe d. Evaluation of solid abdominal viscera iscompromised by by the lack of intraven ous contrast. Evaluation of the bowelloops is compromised lack of oral contrast. All C T scans at this facility areperformed using dose optimization technique as appropria te to a performed exam,to include automated exposure control, adjustment of the mA a nd/or kV accordingto patient size (including appropriate matching first site-specific examinations), or use of iterative reconstruction technique. Comparison: CT scanof the chest performed 12/19/18 Findings: There is a small right pleural effusionw ith adjacent atelectasis. There is minimal left pleural fluid with adjacentatelecta sis. There is a pigtail catheter again identified on the left. The exactlocatio n of this catheter is difficult to ascertain benefits above the diaphragmto below the diaphragm. On today's study the tip appears to be located below thediaphragm. There is a small right pleural effusion with adjacent atelectasis.There is a G-tube i dentified in the stomach. The liver, gallbladder, spleen,pancreas, kidneys an d adrenal glands are unremarkable. No abdominal, pelvic oringuinal lymphadenop athy is identified. No free intraperitoneal fluid is noted.There is a ventral wall h ernia containing loops of what appear to be small bowelhowever are difficult to foll ow. There is mild perirectal stranding andpresacral edema correlate clinically. No dilated loops of bowel are identified.There is mild diverticulosis of the colon. The prostate, bladder and seminalvesicles appear unremarkable. The re are streak artifact obscuring portions ofthe pelvis due to a left hip ORIF. The re is subcutaneous gas identified alongthe right lower anterior pelvic wall.IMPRESS ION: There is a G-tube identified in the stomach. There is a tailcatheter identif ied on the left. The tip appears to be located below thediaphragm although is d ifficult to assess on CT. There is a small residualamount of pleural fluid as well as atelectasis along the left diaphragm. Thereis perirectal stranding and presacr al edema.Ct Thoracentesis Insrt Chest TubeResult Date: 12/19/2018History: Pleura l effusion. PROCEDURE: After being informed of the risks,benefits, and potential alt ernatives procedure informed consent was obtained.The patient was placed on the t able in the yowxi-bmao-hjge decubitus position.CT scanning was performed locat ion was chosen over the left flank. However, dueto the significant amount of patient motion and breathing motion was difficultto accurately assess a location for percuta neous paracentesis. Therefore, thiswas performed manually. After the chosen reg ion was prepped and draped in thenormal sterile fashion using maximum sterile ba rrier technique a lidocaineneedle was placed in the skin. This appeared to be in good position. Lidocainewas then used to anesthetize the skin and subcutaneous ti ssues in this location.Attempts were made to pass an 8 Congolese pigtail catheter throug h this location.However, patient continuous motion was significant as well as excess ivebreathing during the procedure. The catheter was placed at the same interspa ceas well as marked on the prior CT sequence however, due to the excessive patientmot ion the catheter was far more inferior within the chest that on the priorsequences. Th e catheter appeared to enter the hemiabdomen on the left from theleft chest. The cath eter was then pulled back to position where clear yellowfluid was aspirated. It was then sewn in position However, It appeared tomigrate forward and on the CT scanning appeared to again transgress thediaphragm. It was therefore pulled back to a point where only a clear fluid wasaspirated and respiratory variation was noted within t he tube. It was then sewnin position using 2-0 silk sutures. FINDINGS: Initial CT s debora revealed amoderate left pleural effusion. Attempts to nancy an adequate l ocation forpercutaneous thoracentesis were quite limited due to excessive patient m otionand breathing throughout the procedure. A location that appear to be a safelocat ion was marked. However, when the catheter was placed in this sameinterspace as wel l as marked the catheter appeared to be far more inferiorwithin the hemithorax than that seen previously. It appeared to enter the lefthemithorax inferiorly and transg ress the diaphragm with no evidence pathologicsequela. Therefore, it was pul led back into the pleural space for adequatedrainage. 130 cc of lightly bloo d-tinged fluid was aspirated. The catheter wasattached to a Pleur-evac and wall suc tion.IMPRESSION: Left-sided thoracentesis described above.Xr Chest PortResult Date : 12/18/2018Portable chest x-ray. PRIOR EXAM: 12/12/2018 and 11/25/2018 HISTORY: Pneumon ia andpleural effusions FINDINGS: The heart is normal in size. The mediastinum andpu lmonary vessels are unremarkable. There is haziness within the lung basesbilaterall y... The bony structures are intact.IMPRESSION: Haziness within the l eunice bases bilaterally that could representsmall pleural effusions and/or subsegmental atelectasis. Similar findings wereseen on prior exams.Xr Chest PortRes ult Date: 12/13/2018History: Respiratory difficulty. FINDINGS: A frontal portable view of the chestis compared to the prior study from earlier in the same day. EKG leads overliethe chest. The cardiac silhouette is normal in size. The left l eunice is clear. Theright lung is poorly evaluated due to significant rotation. T he possibility ofright basilar infiltrate or atelectatic change cannot be excluded. M ediastinaland hilar structures are poorly evaluated as well.IMPRESSION: Study quit e limited due to rotation. Opacity at the right lung basemay be infiltrative or at electatic in nature.Xr Chest PortResult Date: 12/12/2018History: Fever. Lethargy. FINDI NGS: 2 frontal views of the chest are compared tothe prior study of 11/25/2018. EKG leads overlie the chest. The cardiacsilhouette is normal in size. The re may be some streaky changes at the lungbases. Evaluation of the lungs and m ediastinal structures is quite limited dueto rotation.IMPRESSION: Study quite limited by rotation. Basilar streaks noted.EKG:Results for orders placed or p erformed during the hospital encounter of 12/12/18EKG, 12 LEAD, INITIALResult Valu e Ref Range Ventricular Rate 82 BPM Atrial Rate 81 BPM P-R Interval 122 ms QRS Dura tion 132 ms Q-T Interval 436 ms QTC Calculation (Bezet) 509 ms Calculated P [place] 62 degrees Calculated R [place] 65 degrees Calculated T [place] 66 degrees Diagnosis Sinus rhythmIVCD, consider atypical RBBBArtifact limits interpretation, ST e levation noted avF but other inferiorleads not able to be evaluatedConfirmed by Joaquin Ley MD ([id number]) on 12/17/2018 11:57:07 AMEKG 12/12/18: NSR 82/min, atypical RBBB Echo 11/14/18: limited, LVEF 55-60%, MVP posterior leafletCXR 12/25/18: small righ t pleural effusionTelemetry: NSRASSESSMENT AND PLAN:Active Problems: Pneumonia () Sepsis due to undetermined organism (HCC) (12/12/2018)SEPSISPNEUMONIACOPDPLEU RAL EFFUSIONFLUID OVERLOADHYPERPARATHYROIDMENTALLY CHALLEN GEDSEIZURE DISORDER -------The limited echo does not show LV systolic dysfunctionI & Os for the past 2 days are negative: 3350/6765Lasix given. May continue prnMay repeat EKG. No defin ite cardiac disease seen on technically limited echo.Pulmonary, ID f/uThank you for allowing me to participate in the care of this patient.Valentino Claire, MDSeptember 2018 Name Value Range Interpretation Code Description Data Harriett rce(s) Supporting Document(s ) ID Date Data Source [id number] 12/26/2018 09:29:15 AM EDT [facility] Progress NOTENAME: Evelio FischbeinDOB : 1950MRN: [id number]/Time: 12/26/2018 9:15 AMHISTORY OF PRESENT ILLN ESS:Evelio is a 68 y.o. male who presents from [facility] with medical history ofDysphag ia with recent admission s/p surgical peg placement on 11/17/18, severeintellectual disability, Chronic respiratory failure, hyperparathyroidunspecified, personal h/ o pulmonary embolus, anxiety disorder, kyphosis andschizophrenia.The patient is unable to provide a history due to his mental disability. Thenursing home staf f reporting pt had a cough, fever to 103 F and hypoxia. ChestXR showed suspicion f or a Pneumonia. Pt was given Iv Cefepime, Vancomycin andSolu- medrol. Pt was later found minimally responsive and was sent to the ED. In the ED, chest xr showed some streaky changes at the lung bases. ABG showedpH 7.40/55/56/34/ O2 SAT 90 % on 2 LPM and Lactic Acid was elevated to 5.5. Thepatient was given Iv Zosyn, Solu-Medr ol, nebulizer and IVF.Repeat lactic acid was still elevated at 5.3.The patient was ad mitted with enxounter diagnosis of Sepsis due to unspecifiedorganism, Pnermonia, unspe cified and COPD exacerbation.The patient was seen and examined at bedside he is less lethargic, nonverbbal.He is coughing. 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 No pertinent surgical history. Social HistoryTobacco Use Smoking status: Never Smoker Smokeless tobacco: Never U sedSubstance Use Topics Alcohol use: NoHistory reviewed. No pertinent family history.No Known AllergiesPrior to Admission medicationsMedication Sig Start Date End Date Taking? Authorizing Providerpantoprazole (PROTONIX) 40 mg gr anules for oral suspension 40 mg by Per G Tuberoute Daily (before breakfast). 11/28 Yes Mili Hills DObudesonide (PULMICORT) 0.5 mg/2 mL nbsp 2 mL by Neb ulization route two (2) timesa day for 30 days. 11/27/18 12/27/18 Yes Cesar Hills, DOmultivitamin (ONE A DAY) tablet Take 1 Tab by mouth daily. Yes Provider,Histo ricalclorazepate (TRANXENE) 3.75 mg tablet Take by mouth nightly. Yes Provider,H istoricalalbuterol-ipratropium (DUO-NEB) 2.5 mg-0.5 mg/3 ml nebu 3 mL by Nebulization route every six (6) hours as needed. Yes Provider, HistoricallamoTRIgine (LAMICTA L) 25 mg tablet Take 50 mg by mouth two (2) times a day.Yes Provider, Historicalcina calcet (SENSIPAR) 30 mg tablet Take 60 mg by mouth daily. Yes Provider,Historicalva lproate (DEPAKENE) 250 mg/5 mL syrup Take 750 mg by mouth two (2) times a day.Yes Prov ider, HistoricalREVIEW OF SYSTEMS: [x] Unable to obtain ROS due to patient factors.Obj ective:VITALS:Visit VitalsBP 106/52 (BP 1 Location: Left arm, BP Patient Position: At rest;Head of bedelevated (Comment degrees))Pulse 72Temp (!) 122.1 F (50.1 C) Comment: Simultaneous filing. User may not have seenprevious data.Resp 18Ht 5' 2" (1.575 m)Wt 55.4 kg (122 lb 1.6 oz)SpO2 94%BMI 22.33 kg/m PHYSICAL EXAM:General: Alert, , no distress, appears stated age.Head: Normocephalic, without obvio us abnormality, atraumatic.Eyes: Conjunctivae clear, anicteric sclerae. Pupils are equalThroat: Lips, mucosa, and tongue normal. No ThrushNeck: Supple, symmetrical, no adenopathy, no carotid bruit and no JVD.Back: Symmetric, No CVA tenderness.Lungs: Bilateral air entry.. Decreased breath sounds RUL. N o Wheezing orRhonchi. No rales.Chest wall: No Accessory muscle use.Heart: Regular rate and rhythm, no murmur, or rubAbdomen: Positive peg, non-tender. Not distended . Bowel sounds normal. NomassesExtremities: Extremities normal, atraumatic, No cyano sis. No edema. No clubbingSkin: Warm and dry. No rashes or lesions. Not Jaundice dLymph nodes: Cervical, supraclavicular normal.Psych: Not anxious or agitated.N eurologic: EOMs intact. No facial asymmetry. No aphasia or slurred speech.Generalized weakness, wheel chair bound., Alert and Awake, nonverbal. .LAB DATA REVIEWED:Rec ent Results (from the past 24 hour(s))GLUCOSE, POC Collection Time: 12:27 PMResult Value Ref Range Glucose, bedside 118 (H) 65 - 110 MG/DLB LOOD GAS, ARTERIAL Collection Time: 12/25/18 2:36 PMResult Value Ref Range pH 7.47 (H ) 7.35 - 7.45 PCO2 51 (H) 32 - 48 mmHg PO2 67 (L) 83 - 108 mmHg CO2, TOTAL 39 (H) 19 - 24 mmol/L BICARBONATE 37 (H) 21 - 28 mmol/L O2 SAT 96 94 - 98 % BASE EXCESS 11.5 (H) 0 - 3 mmol/L SITE RIGHT RADIAL MIRANDA'S TEST POSITIVE DEVICE NASAL O2 O2 FLOW 6 L/min Performed by [id number], POC Collection Time: 12/25/18 4:22 PMResult Value Ref Range Glucose, bedside 135 (H) 65 - 110 MG/DLGLUCOSE, POC Collection Time: 12/26 12:25 AMResult Value Ref Range Glucose, bedside 137 (H) 65 - 110 MG/DLRENAL FUNC TION PANEL Collection Time: 12/26/18 3:10 AMResult Value Ref Range Sodium 136 136 - 145 mmol/L Potassium 4.9 3.5 - 5.1 mmol/L Chloride 99 98 - 107 mmol/L CO2 36 (H) 2 1 - 32 mmol/L Anion gap 6 (L) 10 - 20 mmol/L Glucose 96 74 - 106 mg/dL BUN 15 7 - 18 mg/dL Creatinine 0.39 (L) 0.70 - 1.30 mg/dL GFR est AA >60 >60 ml/min/1.73m2 GFR est non-AA >60 >60 ml/min/1.73m2 Calcium 9.0 8.5 - 10.1 mg/dL Phosphorus 2.4 (L) 2.5 - 4. 9 mg/dL Albumin 2.1 (L) 3.5 - 4.7 g/dLMAGNESIUM Collection Time: 12/26/18 3:10 AMResult Value Ref Range Magnesium 1.8 1.6 - 2.6 mg/dLGLUCOSE, POC Collection T jose alejandro: 12/26/18 7:01 AMResult Value Ref Range Glucose, bedside 152 (H) 65 - 110 MG/DLA ssessment/Plan:Active Problems: Pneumonia (11/08/2018) Sepsis due to undetermined organism (HCC) (12/12/2018) Acute Respiratory Failure with hypercapnia and Hypoxia/ im proved Metabolic Acidosis - Resolving Sepsis -poa Metabolic Encephalopathy/ improved Aspiration Pneumonia Acute COPD exacerbation Dysphagia s/p surgically place,emt of g Mentally challenged Seizure disorder Hyperparathyroid worsening pleural effus ion bilaterallyS/p thoracentesis PLAN:Risk of deterioration: []Low []Moderate1. Fo r PEG replacment when medically clear2. IV fluids3.O2 NC/BIPAP4.off v ZosynChest tu be care5. Pulmonary follow up6. ID follow up7. CT chest , bilateral Pleural effusi on8. Restart officer captain medications via peg Covering for Admitting Physician: Oralia Frankel MD December 9:15 AM Name Value Range Interpretation Code Description Data Harriett rce(s) Supporting Document(s ) ID Date Data Source [id number] 12/26/2018 09:24:27 AM EDT [facility] Pt seen, no significant changes.Remains hypoxic ~ 92% on 6L nc, still requiring bipap at times.New leukocytosis this am. D/w Dr. Frankel and page out to Dr. Hamilton pulmonary.Condition is not optimal for e ndoscopy w/ anesthesia especially considering theprocedure J via G tube is often of li mited benefit (j tube often falls back intostomach after clip falls off)Will de cristina again today, ok to use low rate of feeds via g tube in the interim.If it is not f elt that he will improve substantially attempt is still desired,will have to di scuss w/ anesthesia.I called the patients sister who consented for previous proced ure w/ dr. [place] no answer. Name Value Range Interpretation Code Description Data [facility] rce(s) Supporting Document(s ) ID Date Data Source [id number] 12/26/2018 09:08:35 AM EDT [facility] Progress NotePatient: Evelio Carlin Sex: male DOA: 12/12/2018Date of : 1950 Age: 68 y.o. :[id number]:Reyes Carlin is 68 y.o. male who presented with lethargy,cough, fever,hypoxia, meta bolic acidosis, and hypothermia.He has medical history of Dysphagia with recent admission s/p surgical pegplacement on 11/17/18, severe intellectual disability, Chronic respiratoryfailure, hyperparathyroid unspecified, personal h/o pulmonary embo aspen, anxietydisorder, kyphosis and schizophreniaPt was admitted with encoun ter diag of Acute Respiratory failure withhypercapnia and hypoxia, metabolic a cidosis, sepsis poa, Acute COPD exacerbationand dysphagia s/p surgical p lacement of peg,. Also diag of mentally challenged,seizure disorder and hyperpar athyroid.Pt is nonverbal and unable to provide a history.During the interval ; gi requested to see the pt for possible conversion of G Solange tube to make aspirat ion less likely, less severe.CTA of the LUE on 12/18/18 showed Patent LUE arterial ve ssels , althoughevauation distally is limited. B/L peural effusions and bibasi lar atelectasis.shirft of mediastinal structures to the rt. Pt s/p CT guided l eft thoracentesis on 12/19/18.On gi f/u pt was scheduled for endo placement of a J tube via PEG. Howeverprocedure was rescheduled pending improvement in pt respiratory st atus.Repeat CT Abd /Pelvis dated 12/22/18 showing G-tube in the stomach. Pig tail cathid on the left. The tip appears to be located below the diaphragm although isd ifficult to assess on Ct. There is subcutaneous gas id along the lower ante riorpelvic wall. There is perirectal stranding and presacral edema.On 12/24/18 pt was determined not cleared for PEG placemetn due to AcuteRespiratory Distre ss. Pt was restarted on IV solumedrol. 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 + scabs atupper corner of right lip and below rt nostrilHead: Normocephali c, without obvious abnormality, atraumatic.Eyes: Conjunctivae clear, a nicteric sclerae. Pupils are equalNose: Wearing O2 NCNeck: Supple, symmetrical, no adenopathy, no carotid bruit and no JVD.Back: Symmetric, No CVA tenderne ss.Lungs: Clear to auscultation bilaterally. No Wheezing or Rhonchi. No rales.Left pig tail cath.Chest wall: No tenderness or deformity.Heart: Regular rate and rhythm, no murmur, or rubAbdomen: + Peg intact, non-tender. Not distende d. Bowel sounds normal.Extremities: Extremities normal, atraumatic, No cyano sis. No edema. No clubbingSkin: Warm and dry. No rashes or lesions. Not Jaundic edLymph nodes: Cervical, supraclavicular normal.Psych: Unable to assessNeurologi c: EOMs intact. No facial asymmetry. Non verbalGU : Swollen scrotumIntake and Out put:Current Shift: No intake/output data recorded.Last three shifts: 12/24 190 - 12/26 0700In: 3350 [I.V.:300]Out: 4225 [Urine:3000; Drains:175]Lab/Data Reviewe d:Recent Days:Recent ResultsRecent Results (from the past 24 hour(s))GLUCOSE, POC Collection Time: 12/24/18 11:57 AMResult Value Ref Range Glucose, bedside 106 65 - 110 MG/DLGLUCOSE, POC Collection Time: 12/24/18 7:19 PMResult Value Ref Range Glucose, bedside 116 (H) 65 - 110 MG/DLGLUCOSE, POC Collection Time: 12/14 06/03 12:02 AMResult Value Ref Range Glucose, bedside 146 (H) 65 - 110 MG/DLRENAL FUNC TION PANEL Collection Time: 12/25/18 3:15 AMResult Value Ref Range Sodium 139 136 - 145 mmol/L Potassium 4.8 3.5 - 5.1 mmol/L Chloride 99 98 - 107 mmol/L CO2 34 (H) 21 - 32 mmol/L Anion gap 11 10 - 20 mmol/L Glucose 182 (H) 74 - 106 mg/dL BUN 12 7 - 18 mg/dL Creatinine 0.44 (L) 0.70 - 1.30 mg/dL GFR est AA >60 >60 ml/min/1.73m2 GFR est non-AA >60 >60 ml/min/1.73m2 Calcium 9.0 8.5 - 10.1 mg/dL Phosphorus 3.0 2.5 - 4.9 mg/dL Albumin 1.9 (L) 3.5 - 4.7 g/dLMAGNESIUM Collection Time: 12/14 06/03 3:15 AMResult Value Ref Range Magnesium 2.1 1.6 - 2.6 mg/dLNT-PRO BNP Collection Time: 12/25/18 3:15 AMResult Value Ref Range NT pro-BNP 2,137 (H) 0 - 125 PG/MLGLUCOSE, POC Collection Time: 12/25/18 6:27 AMResult Value Ref Range Glucose, bedside 136 (H) 65 - 110 MG/DLXr Chest Sngl VResult Date: 12/25/2018Portab le chest x-ray. PRIOR EXAM: X-ray 12/18/2018 HISTORY: Pneumonia FINDINGS:The heart is normal in size. The mediastinum and pulmonary vessels areunremarkable. There is a small right pleural effusion.. A tube projected overthe left upper quadrant of the abdomen..IMPRESSION: Small right pleural effusion.Ct Chest Wo ContResult Date: 12/18/2018Referring Physician: KRYSTIAN MONAE Patient Name: EVELIO CARLIN THIS IS AFINAL REPORT FROM [facility] DATE OF SERVICE: 2018-12-18 01:22:40 IMAGES:[id number] EXAM: CT CHEST WO CONTRAST HISTORY: .. Right lower lobe atelectasis..TECHNIQUE: Helic al axial imaging from the thoracic inlet through the adrenalglands without contra st. Sagittal and coronal reconstructions were obtained.COMPARISON: CT chest without co ntrast of 12/13/2018. FINDINGS: .. Evaluationremains limited due to lack of IV contrast and patient positioning. The imagedthyroid gland remains atrophic. Th e aorta remains normal in caliber.Atherosclerotic calcifications a re again seen in the aorta. There is againcardiomediastinal shift towards the right. The heart remains normal in size andno pericardial effusion is noted. No obvious lymphadenopathy seen on thisunenhanced scan. No pneumothorax is noted. Since the prior exam there is beenincrease in bilateral pleural effusi ons with associated consolidations. Acalcified granuloma is again seen in th e right lower lobe. The imaged upperabdomen does not demonstrate any gross acute maggy nges. Osteopenia is again noted.Degenerative changes again seen in the imaged spine. Old healed right posteriorlower rib fractures are again seen.IMPRESSION: .. Limited s tudy demonstrating increase in bilateral pleuraleffusions with associated consoli dations with persistent cardiomediastinal shifttowards the right. Stable findings as noted above.. One or more of the followingdose reduction techniques were used: automated exposure control, adjustment ofthe mA and/or kV according to patient size, use of iterative reconstructivetechnique. THIS DOCUMENT H BEEN ELECTRONICALLY SIGNED Kamran Gillette MD 12/18/2018 04:49 GINA Verde Please call [facility] [phone] with questions. This report was electronically signed by: Tala MENDEZ 12/18/2018 04: 50 AMCt Chest Wo ContResult Date: 12/13/2018History: Respiratory difficulty . FINDINGS: CT scanning of the chest wasperformed helically from the lung api martine to the upper abdomen withoutintravenous contrast material. Sagittal and coronal reconstructed images aresubmitted. Scanning was performed utilizing dose lowering te chniques and iscompared to the prior study of 11/08/2018. The study is quite limited by patientpositioning. Evaluation of thoracic vascular structures is limited withoutin travenous contrast material does not reveal evidence of aneurysmal dilatationor defi nite CT evidence of dissection. Coronary artery calcification is seen.There is mi nimal calcification of the aortic arch. There is minimalcalcification of the descendin g thoracic aorta. There is no definite evidence ofany pathologically enlarged l ymph node in the visualized portions of themediastinum or axillae. Evaluation of pulmonary parenchymal structures revealssome atelectatic change in the right upper lo be. There is a small left pleuraleffusion as well as left basilar atelectatic change. There is some patchyopacity within the right middle lobe and right lower lobe which c ould also beinfiltrative in nature. Limited evaluation of upper abdominal structures isunremarkable. There is deviation of mediastinal structures to the right. Thi scould be as result of atelectatic change within the right lung. This has beenseen previously and is unchanged.IMPRESSION: Extremely limited study by patient posit ioning. Deviation ofmediastinal structures to the right as has been seen on prior stud ies. Leftpleural effusion. Bilateral infiltrates and atelectasis, greater on the rightthan the left.Cta Up Ext Lt W ContResult Date: 12/18/2018History: Arm cl audication. FINDINGS: CTA of the left upper extremity wasperformed helically from le ricky of the shoulder through the fingers after theintravenous administration of 119 cc of Isovue. Sagittal, coronal, and 3-Dreconstructed images obtained on an RealtimeBoard workstation are submitted. Noprior studies are available for comparison. Th e left subclavian artery is widelypatent. It is continuous with a widely patent left axillary artery. The axillaryartery is continuous with a widely patent left bra chial artery. The brachialartery bifurcates into a radial and ulnar artery just belo w the elbow. From thispoint distally streak artifact from patient positioning limits evaluation.However, the ulnar artery appears widely patent to the wrist. The radial a rteryis less well opacified but does appear patent to the wrist as well. Anintraosse ous artery also appears patent although it is poorly visualized aswell. The digital ar teries are not visualized on this study. There arebilateralpleural effusions note d both of which are moderate to large. Theeffusion on the left one is larger th an the right. Bibasilar atelectatic changethroughout much of the lower lobes is seen. There is a significant shift ofmediastinal structures to the right. T he liver is decreased in attenuationcompatible with fatty infiltr ation. The spleen is unremarkable. The adrenalglands are normal in appearance. The pancreas is grossly normal as is thegallbladder. A gastrostomy tube is no mikel in situ. The kidneys are unremarkable.There is a midline abdomina l wall hernia containing large and small bowel aswell as mesentery without eviden ce of obstruction. There is some presacralthickening and possibly some fr ee fluid noted. The patient is status post ORIFof the left hip with metallic hardwa re in situ.IMPRESSION: Patent left upper extremity arterial vessels although eval uationdistally is limited. Bilateral pleural effusions and bibasilar atelectasis.Shif t of mediastinal structures to the right.Ct Abd Pelv Wo ContResult Date: 12/21/2018His tory: ? Maturity of g-tube tract Technique: CT of the abdomen and pelvis wasperforme d from the dome of the diaphragm to the pubic symphysis without oral orintravenous con trast with dose lowering techniques. Sagittal and coronalreconstructions were performe d. Evaluation of solid abdominal viscera iscompromised by by the lack of intraven ous contrast. Evaluation of the bowelloops is compromised lack of oral contrast. All C T scans at this facility areperformed using dose optimization technique as appropria te to a performed exam,to include automated exposure control, adjustment of the mA a nd/or kV accordingto patient size (including appropriate matching first site-specific examinations), or use of iterative reconstruction technique. Comparison: CT scanof the chest performed 12/19/18 Findings: There is a small right pleural effusionw ith adjacent atelectasis. There is minimal left pleural fluid with adjacentatelecta sis. There is a pigtail catheter again identified on the left. The exactlocatio n of this catheter is difficult to ascertain benefits above the diaphragmto below the diaphragm. On today's study the tip appears to be located below thediaphragm. There is a small right pleural effusion with adjacent atelectasis.There is a G-tube i dentified in the stomach. The liver, gallbladder, spleen,pancreas, kidneys an d adrenal glands are unremarkable. No abdominal, pelvic oringuinal lymphadenop athy is identified. No free intraperitoneal fluid is noted.There is a ventral wall h ernia containing loops of what appear to be small bowelhowever are difficult to foll ow. There is mild perirectal stranding andpresacral edema correlate clinically. No dilated loops of bowel are identified.There is mild diverticulosis of the colon. The prostate, bladder and seminalvesicles appear unremarkable. The re are streak artifact obscuring portions ofthe pelvis due to a left hip ORIF. The re is subcutaneous gas identified alongthe right lower anterior pelvic wall.IMPRESS ION: There is a G-tube identified in the stomach. There is a tailcatheter identif ied on the left. The tip appears to be located below thediaphragm although is d ifficult to assess on CT. There is a small residualamount of pleural fluid as well as atelectasis along the left diaphragm. Thereis perirectal stranding and presacr al edema.Ct Thoracentesis Insrt Chest TubeResult Date: 12/19/2018History: Pleura l effusion. PROCEDURE: After being informed of the risks,benefits, and potential alt ernatives procedure informed consent was obtained.The patient was placed on the t able in the [id number] decubitus position.CT scanning was performed locat ion was chosen over the left flank. However, dueto the significant amount of patient motion and breathing motion was difficultto accurately assess a location for percuta neous paracentesis. Therefore, thiswas performed manually. After the chosen reg ion was prepped and draped in thenormal sterile fashion using maximum sterile ba rrier technique a lidocaineneedle was placed in the skin. This appeared to be in good position. Lidocainewas then used to anesthetize the skin and subcutaneous ti ssues in this location.Attempts were made to pass an 8 Congolese pigtail catheter throug h this location.However, patient continuous motion was significant as well as excess ivebreathing during the procedure. The catheter was placed at the same interspa ceas well as marked on the prior CT sequence however, due to the excessive patientmot ion the catheter was far more inferior within the chest that on the priorsequences. Th e catheter appeared to enter the hemiabdomen on the left from theleft chest. The cath eter was then pulled back to position where clear yellowfluid was aspirated. It was then sewn in position However, It appeared tomigrate forward and on the CT scanning appeared to again transgress thediaphragm. It was therefore pulled back to a point where only a clear fluid wasaspirated and respiratory variation was noted within t he tube. It was then sewnin position using 2-0 silk sutures. FINDINGS: Initial CT s debora revealed amoderate left pleural effusion. Attempts to nancy an adequate l ocation forpercutaneous thoracentesis were quite limited due to excessive patient m otionand breathing throughout the procedure. A location that appear to be a safelocat ion was marked. However, when the catheter was placed in this sameinterspace as wel l as marked the catheter appeared to be far more inferiorwithin the hemithorax than that seen previously. It appeared to enter the lefthemithorax inferiorly and transg ress the diaphragm with no evidence pathologicsequela. Therefore, it was pul led back into the pleural space for adequatedrainage. 130 cc of lightly bloo d-tinged fluid was aspirated. The catheter wasattached to a Pleur-evac and wall suc tion.IMPRESSION: Left-sided thoracentesis described above.Xr Chest PortResult Date : 12/18/2018Portable chest x-ray. PRIOR EXAM: 12/12/2018 and 11/25/2018 HISTORY: Pneumon ia andpleural effusions FINDINGS: The heart is normal in size. The mediastinum andpu lmonary vessels are unremarkable. There is haziness within the lung basesbilaterall y... The bony structures are intact.IMPRESSION: Haziness within the l eunice bases bilaterally that could representsmall pleural effusions and/or subsegmental atelectasis. Similar findings wereseen on prior exams.Xr Chest PortRes ult Date: 12/13/2018History: Respiratory difficulty. FINDINGS: A frontal portable view of the chestis compared to the prior study from earlier in the same day. EKG leads overliethe chest. The cardiac silhouette is normal in size. The left l eunice is clear. Theright lung is poorly evaluated due to significant rotation. T he possibility ofright basilar infiltrate or atelectatic change cannot be excluded. M ediastinaland hilar structures are poorly evaluated as well.IMPRESSION: Study quit e limited due to rotation. Opacity at the right lung basemay be infiltrative or at electatic in nature.Xr Chest PortResult Date: 12/12/2018History: Fever. Lethargy. FINDI NGS: 2 frontal views of the chest are compared tothe prior study of 11/25/2018. EKG leads overlie the chest. The cardiacsilhouette is normal in size. The re may be some streaky changes at the lungbases. Evaluation of the lungs and m ediastinal structures is quite limited dueto rotation.IMPRESSION: Study quite limited by rotation. Basilar streaks noted.Medications reviewedCurrent Facili ty-Administered MedicationsMedication Dose Route Frequency methylPREDNISolone (PF) (SOLU-MEDROL) injection 20 mg 20 mg IntraVENous Q12H dextrose 5% infusion 50 mL/hr IntraVENous CONTINUOUS haloperidol lactate (HALDOL) injection 2 mg 2 mg In traVENous Q6H PRN acetaminophen (TYLENOL) solution 650 mg 650 mg Per NG tube Q4H PRN albuterol-ipratropium (DUO-NEB) 2.5 MG-0.5 MG/3 ML 3 mL Nebulization Q4H TN N potassium, sodium phosphates (NEUTRA-PHOS) packet 1 Packet 1 Packet Oral QID acet ylcysteine (MUCOMYST) 100 mg/mL (10 %) nebulizer solution 200 mg 2 mLNebulizat ion BID RT albuterol-ipratropium (DUO-NEB) 2.5 MG-0.5 MG/3 ML 3 mL Nebulization Q6 H RT bacitracin 500 unit/gram packet 1 Packet 1 Packet Topical BID piperacill in-tazobactam (ZOSYN) 3.375 g in 0.9% sodium chloride (MBP/ADV) 100mL MBP 3.375 g In traVENous Q8H budesonide (PULMICORT) 500 mcg/2 ml nebulizer suspension 500 mcg N ebulizationBID RT lamoTRIgine (LaMICtal) tablet 50 mg 50 mg Per G Tube BID valp roic acid (as sodium salt) (DEPAKENE) 250 mg/5 mL (5 mL) oral solution 750mg 750 mg Per G Tube BID cinacalcet (SENSIPAR) tablet 60 mg 60 mg Oral DAILY pantopra zole (PROTONIX) granules for oral suspension 40 mg 40 mg Per G TubeACB heparin (por cine) injection 5,000 Units 5,000 Units SubCUTAneous Q12H sodium chloride (NS) flush 5-10 mL 5-10 mL IntraVENous PRNAssessment/Plan:Hospital Problems Da te Reviewed: 12/15/2018 Codes Class Noted POA Sepsis due to undetermined organism (HCC) ICD-10-CM: A41.9ICD-9-CM: 038.9 12/12/2018 Unknown Pneumonia ICD-10-CM: J 18.9ICD-9-CM: 486 11/08/2018 UnknownAssessment:Sepsis - poaAspiration PneumoniaAcute respiratory failure with Hypoxia andHypercapniaAcute COPD exacerb ationDysphagia s/p surgical placed pegPleural EffusionFluid overloadLeukocytosis likel y steroid inducedMentally challengedSeizureHyperparathyroidPlan:Co ntinue IV zosynO2 NC/ BIPAPPulmonary follow up nutrition f/u culturesnebulizers iv s teroids tapering per pulmonary cont officer captain medications D/W pmo lead and RN sug gest a trial of bolusTF to reduce risk of aspiration.from the continuous TFDiscuss ed with Dr Trejo plans for conversion of PEGJ -tube once respiratory status is stable. Mili Hills, DOSept2018Time: 7:51 AM Name Value Range Interpretation Code Description Data Harriett rce(s) Supporting Document(s ) ID Date Data Source [id number] 12/26/2018 07:32:22 AM EDT [facility] Bedside and Verbal shift change report g iven to Joellen Blum RN (oncomingnurse) by Daja Castaneda RN(offgoing nurse). R eport given with SBAR, Kardex, Intake/Output, MAR and RecentResults. Name Value Range Interpretation Code Description Data [facility] rce(s) Supporting Document(s ) ID Date Data Source [id number] 12/26/2018 07:17:36 AM EDT [facility] Name Value Range Interpretation Description Data Sup porting Code Source(s) Document(s ) Glucose 152 MG/DL 65-110 Above high normal [facility] - [facility] [Mass/volume] [facility] in Blood by Hospital Automated test strip ID Date Data Source [id number] 12/26/2018 04:38:50 AM EDT [facility] Name Value Range Interpretation Description Data Sup porting Code Source(s) Document(s ) Sodium 136 136-145 [facility] [Moles/volume] mmol/L [facility] in Serum or Hospital Plasma Potassium 4.9 3.5-5.1 [facility] [Moles/volume] mmol/L [facility] in Serum or Hospital Plasma Chloride 99 98-107 [facility] [Moles/volume] mmol/L [facility]ist in Serum or Hospital Plasma Carbon 36 21-32 Above high normal [facility] - Good dioxide, total mmol/L Taoist [Moles/volume] Hospital in Serum or Plasma Anion gap in 6 mmol/L 10-20 Below low normal [facility] - Go od Serum or Taoist Plasma Hospital Glucose 96 mg/dL 74-106 [facility] [Mass/volume] Tao[facility] in Serum or Hospital Plasma Urea nitrogen 15 mg/dL 7-18 [facility] [Mass/volume] Tao[facility] in Serum or Hospital Plasma Creatinine 0.39 0.70-1.3 Below low normal [facility] - [facility] [Mass/volume] mg/dL 0 [facility] in Serum or Hospital Plasma Glomerular >60 [facility] - Good filtration Taoist rate/1.73 sq M Hospital predicted among blacks [Volume Rate/Area] in Serum or Plasma by Creatinine-bas ed formula (MDRD) Glomerular >60 [facility] - Good filtration Taoist rate/1.73 sq M Hospital predicted among non-blacks [Volume Rate/Area] in Serum or Plasma by Creatinine-bas ed formula (MDRD) Calcium 9.0 8.5-10.1 [facility] - [facility] [Mass/volume] mg/dL Taoist in Serum or Hospital Plasma Phosphate 2.4 2.5-4.9 Below low normal [facility] [Mass/volume] mg/dL Taoist in Serum or Hospital Plasma Albumin 2.1 g/dL 3.5-4.7 Below low normal [facility] [Mass/volume] Tao[facility] in Serum or Hospital Plasma by Bromocresol purple (BCP) dye binding method ID Date Data Source [id number] 12/26/2018 04:38:50 AM EDT [facility] - Good [facility] Name Value Range Interpretation Description Data Sup porting Code Source(s) Document(s ) Magnesium 1.8 mg/dL 1.6-2.6 [facility] [Mass/volume] Taoist in Serum or Hospital Plasma ID Date Data Source [id number] 12/26/2018 12:42:23 AM EDT [facility] Value Range Interpretation Description Data Sup porting Code Source(s) Document(s ) Glucose 137 MG/DL 65-110 Above high normal [facility] - [facility] [Mass/volume] Taoist in Blood by Hospital Automated test strip ID Date Data Source [id number] 12/25/2018 07:54:34 PM EDT [facility] Alert restless this am now relaxed and c graham. Afebrile LUE swelling passive ROMstiff rigid. Polyuria loose bm Dr Hills and d ietician aware Bolus feeds Seen byDr Hamilton. Crusty lesions right lip and nare noted. Freq oral care and suctionMitts removed at times by pt and staff No swelling/ecchym osis. LUE less swollenthis pm Name Value Range Interpretation Code Description Data [facility] rce(s) Supporting Document(s ) ID Date Data Source [id number] 12/25/2018 07:31:22 PM EDT [facility] Bedside and Verbal shift change report g iven to Daja (oncoming nurse) byWes Saldana RN(offgoing nurse). Report giv en with SBAR, Kardex, Intake/Output, MAR and RecentResults. Name Value Range Interpretation Code Description Data [facility] rce(s) Supporting Document(s ) ID Date Data Source [id number] 12/25/2018 07:25:27 PM EDT [facility] Bedside and Verbal shift change report g iven to Daja (oncoming nurse) by Wes Saldana RN(offgoing nurse). Report giv en with SBAR, Kardex, Intake/Output, MAR and RecentResults. Name Value Range Interpretation Code Description Data [facility] rce(s) Supporting Document(s ) ID Date Data Source [id number] 12/25/2018 06:51:33 PM EDT [facility] ID Progress Note12/25/2018Patient is non verbal,unable to provide any historyAfebrileS/p left pigtail catheter insertion for pleural effusion 12/19/18- culture NGTDObjective:Vitals:Patient Vit als for the past 24 hrs: BP Temp Pulse Resp SpO2 Gqgdpa04/12/19 1105 104/64 98.7 F (37.1 C) 75 20 98 % -12/25/18 0838 - - - - 100 % -12/25/18 0729 105/60 98.7 F (37. 1 C) 73 17 100 % -12/25/18 0651 - - - - - 55.9 kg (123 lb 3.2 oz)12/25/18 0600 - - - - 100 % -12/25/18 0446 111/58 97 F (36.1 C) 68 - 100 % -12/24/18 2314 106/59 98.3 F (36.8 C) 89 - 94 % -12/24/18 2030 - - - - 97 % -12/24/18 1916 106/55 97.5 F (36 .4 C) 85 18 97 % -12/24/18 1537 114/67 97.7 F (36.5 C) 89 18 97 % -Tmax: Temp (24h rs), Av F (36.7 C), Min:97 F (36.1 C), Max:98.7 F (37.1 C)Physical Exam:Ge neral: Awake non verbal, cooperative, no distressMouth/Throat: Dry oral, mucosaNe ck: Supple, symmetrical, trachea midline, no adenopathyLungs: Decrease breath sound s at bases. +Heart: Regular rate and rhythm, S1, S2 normal, no murmurAbdomen: Soft, non-tender. Bowel sounds normal. No masses, No organomegaly.+feeding tubeBack: No CVA tenderness.Extremities: Extremities normal, atraumatic, no cyanosis or edema .Pulses: 2+ and symmetric all extremities.Skin: Skin color, texture, t urgor normal. No rashes or lesionsCurrent Facility-Administered MedicationsMedicat ion Dose Route Frequency methylPREDNISolone (PF) (SOLU-MEDROL) injection 40 mg 40 m g IntraVENous Q8H dextrose 5% infusion 50 mL/hr IntraVENous CONTINUOUS haloperido l lactate (HALDOL) injection 2 mg 2 mg IntraVENous Q6H PRN acetaminophen (TYLE NOL) solution 650 mg 650 mg Per NG tube Q4H PRN albuterol-ipratropium (DUO-NEB) 2.5 MG-0.5 MG/3 ML 3 mL Nebulization Q4H PRN potassium, sodium phosphates (NEUTRA-JOCY S) packet 1 Packet 1 Packet Oral QID acetylcysteine (MUCOMYST) 100 mg/mL (10 %) nebulizer solution 200 mg 2 mLNebulization BID RT albuterol-ipratro pium (DUO-NEB) 2.5 MG-0.5 MG/3 ML 3 mL Nebulization Q6H RT bacitracin 500 unit /gram packet 1 Packet 1 Packet Topical BID piperacillin-tazobactam (ZOSYN) 3.375 g in 0.9% sodium chloride (MBP/ADV) 100mL MBP 3.375 g IntraVENous Q8H budesonide (PUL MICORT) 500 mcg/2 ml nebulizer suspension 500 mcg NebulizationBID RT lamoTRIgine (LaMICtal) tablet 50 mg 50 mg Per G Tube BID valproic acid (as sodium salt) (DEPAKEN E) 250 mg/5 mL (5 mL) oral solution 750mg 750 mg Per G Tube BID cinacalcet (SENSI PAR) tablet 60 mg 60 mg Oral DAILY pantoprazole (PROTONIX) granules for ora l suspension 40 mg 40 mg Per G TubeACB heparin (porcine) injection 5,000 Units 5,000 Units SubCUTAneous Q12H sodium chloride (NS) flush 5-10 mL 5-10 mL Int raVENous PRNLabs:Recent Labs 12/24/1902WBC -- -- 1 7.1*HGB -- -- 11.6*PLT -- -- 266BUN 12 9 12CREA 0.44* 0.36* 0.43*Cultures:La b ResultsComponent Value Date/Time Culture result: NO GROWTH 1 DAY 12/24/2018 09:45 AM Culture result: NO GROWTH 2 DAYS 12/23/2018 12:00 PM Culture result: NO G ROWTH 2 DAYS 12/23/2018 11:40 AMRadiology:Xr Chest Sngl VResult Date: 12/25/2018Portab le chest x-ray. PRIOR EXAM: X-ray 12/18/2018 HISTORY: Pneumonia FINDINGS:The heart is normal in size. The mediastinum and pulmonary vessels areunremarkable. There is a small right pleural effusion.. A tube projected overthe left upper quadrant of the abdomen..IMPRESSION: Small right pleural effusion.Assessment: Sepsis. Aspiratio n pneumonia. Acute respiratory failure with hypoxia and hypercapnia. Acute COPD exa cerbation. Dysphagia. Atelectasis. Pleural effusion. Leukocytosis (pt on steriods) Plan:1. Continue IV zosyn2. Follow repeat blood cx and UA, UCx3. Follow cultures f /u CBCFoluke Salu, MDSeptember 20183:13 PM Name Value Range Interpretation Code Description Data Harriett rce(s) Supporting Document(s ) ID Date Data Source [id number] 12/25/2018 04:47:38 PM EDT [facility] Name Value Range Interpretation Description Data Sup porting Code Source(s) Document(s ) Glucose 135 MG/DL 65-110 Above high normal [facility] [Mass/volume] Taoist in Blood by Hospital Automated test strip ID Date Data Source [id number] 12/25/2018 03:19:09 PM EDT [facility] PULMONARY/ CCM- Consult NotePatient: Ivelisse Carlin Sex: male DOA: 12/12/2018Date of : 1 Age: 68 y.o. LOS: LOS: 13 daysHPI: kassie Carlin is a 68 y.o. male who has been seen for respfailure.pneumonia,recently discharge d..Patient with MR,aspiration pneumonia,dysphagia,s/p peg placement,CO PD,pulmonaryembolism,schizophrenia was transferred from the long-term for fe [id number],shortness of breath and tachycardia.Patient is non verbal,unable toprovide history.ct scan showed bilateral pleural effusions,left more thanright,s/ p left pig tail catheter.draining.course reviewed.left arm swollen.Past Medical H istory:Diagnosis Date Chronic obstructive pulmonary disease (HCC) GERD (gastroeso phageal reflux disease) Hyperparathyroidism (HCC) Mental retardation 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 Authorizing Providerpantoprazole (PROTONIX) 40 mg gr anules for oral suspension 40 mg by Per G Tuberoute Daily (before breakfast). 11/28 Yes Mili Hills DObudesonide (PULMICORT) 0.5 mg/2 mL nbsp 2 mL by Neb ulization route two (2) timesa day for 30 days. 11/27/18 12/27/18 Yes Cesar Hills DOmultivitamin (ONE A DAY) tablet Take 1 Tab by mouth daily. Yes Provider,Histo ricalclorazepate (TRANXENE) 3.75 mg tablet Take by mouth nightly. Yes Provider,H istoricalalbuterol-ipratropium (DUO-NEB) 2.5 mg-0.5 mg/3 ml nebu 3 mL by Nebulization route every six (6) hours as needed. Yes Provider, HistoricallamoTRIgine (LAMICTA L) 25 mg tablet Take 50 mg by mouth two (2) times a day.Yes Provider, Historicalcina calcet (SENSIPAR) 30 mg tablet Take 60 mg by mouth daily. Yes Provider,Historicalva lproate (DEPAKENE) 250 mg/5 mL syrup Take 750 mg by mouth two (2) times a day.Yes Prov ider, HistoricalNo Known AllergiesHistory reviewed. No pertinent surgical history. History reviewed. No pertinent family history.Social HistorySocioeconomic Hist ory Marital status: SINGLE Spouse name: Not on file Number of children: Not on file Years of education: Not on file Highest education level: Not on fileTobacco Use Smoking status: Never Smoker Smokeless tobacco: Never UsedSubstance and Sexual Activity Alcohol use: No Drug use: NoReview of SystemsPertinent items are noted in t he History of Present Illness.Physical Exam:Current medications:Current Facilit y-Administered Medications: methylPREDNISolone (PF) (SOLU-MEDROL) in jection 40 mg, 40 mg, IntraVENous,Q8H, Krystian Monae MD, 40 mg at 12/25/18 143 1 dextrose 5% infusion, 50 mL/hr, IntraVENous, CONTINUOUS, Oralia Frankel MD,Last Rate: 50 mL/hr at 12/23/18 1715, 50 mL/hr at 12/23/18 1715 haloperidol lac botello (HALDOL) injection 2 mg, 2 mg, IntraVENous, Q6H PRN,Stella Hamilton MD, 2 mg at 12/22/18 2306 acetaminophen (TYLENOL) solution 650 mg, 650 mg, Per N G tube, Q4H PRN,Mili Hills DO, 650 mg at 12/19/18 1818 albuterol-ipratropium (DUO-NEB) 2.5 MG-0.5 MG/3 ML, 3 mL, Nebulization, Q4HPRN, Mili Hills, Gaston O, 3 mL at 12/16/18 0417 potassium, sodium phosphates (NEUTRA-PHOS) packet 1 Packet , 1 Packet, Oral,ISHANDDov Nihal, MD, 1 Packet at 12/25/18 1431 acetylcysteine (MUCOMYST) 100 mg/mL (10 %) nebulizer solution 200 mg, 2 mL,Nebulization, BID RT, Mili Hills DO, 200 mg at 12/25/18 0834 albuterol-ipratropium (DUO-NEB) 2 .5 MG-0.5 MG/3 ML, 3 mL, Nebulization, Q6HRT, Mili Hills DO, 3 mL at 12/25/18 14 03 bacitracin 500 unit/gram packet 1 Packet, 1 Packet, Topical, BID, Eloisa Hills DO, 1 Packet at 12/25/18 0942 piperacillin-tazobactam (ZOSYN) 3.375 g in 0.9% sodium chloride (MBP/ADV) 100mL MBP, 3.375 g, IntraVENous, Q8H, Manuel Plunkett MD, Last Rate: 25 mL/hr at12/25/18 1431, 3.375 g at 12/25/18 1431 budesonide (P ULMICORT) 500 mcg/2 ml nebulizer suspension, 500 mcg,Nebulization, BID RT, Abdiel Plunkett MD, 500 mcg at 12/25/18 0838 lamoTRIgine (LaMICtal) tablet 50 mg, 50 mg, Per G Tube, BID, Van Plunkett MD, 50 mg at 12/25/18 0942 valproic acid (as sod ium salt) (DEPAKENE) 250 mg/5 mL (5 mL) oral duckujcw264 mg, 750 mg, Per G Tube, BID, Van Plunkett MD, 750 mg at 12/25/18 0942 cinacalcet (SENSIPAR) tablet 60 mg, 60 mg, Oral, DAILY, Van Plunkett MD,60 mg at 12/25/18 0942 pantoprazole (PROTONIX) granules for oral suspension 40 mg, 40 mg, Per GTube, ACB, Van Plunkett MD, 40 m g at 12/25/18 0942 heparin (porcine) injection 5,000 Units, 5,000 Units, SubC UTAneous, Q12H,Van Plunkett MD, 5,000 Units at 12/25/18 1431 sodium chloride (NS) flush 5-10 mL, 5-10 mL, IntraVENous, PRN, Van Plunkett, MDDataVisit VitalsBP 104/64 (BP 1 Location: Left arm, BP Patient Position: At rest)Pulse 75Temp 98.7 F ( 37.1 C)Resp 20Ht 5' 2" (1.575 m)Wt 55.9 kg (123 lb 3.2 oz)SpO2 98%BMI 22.53 kg/m In take and Output:Date 12/24/18699 - 12/25/1865812/25/18699 - 12/26/18 0659Shift 5890-1622 2192-0379 24 Hour Total 5070-4535 0013-5984 24 Hour TotalINTAKENG/GT 650 650 Water Flush Volume (mL) (PEG/Gastrostomy Tube 12/12/18) 170 170 Intake (ml) (PE G/Gastrostomy Tube 12/12/18) 480 480Shift Total(mL/kg) 650(11.6) 650(11.6)OUTPUTU rine(mL/kg/hr) 2500(3.4) 950(1.4) 3450(2.6) 1000 1000 Urine Voided 2500 950 3450 1 000 1000 Urine Occurrence(s) 1 x 1 x 1 x 1 xDrains 40 50 90 Output (ml) (Pleural Catheter/Drain 12/19/18 Left) 40 50 90Stool Stool Occurrence(s) 2 x 2 xShift Total (mL/kg) 2540(41.5) 1000(17.9) 3540(63.3) 1000(17.9) 1000(17.9)NET -2540 -350 -28 90 -1000 -1000Weight (kg) 61.2 55.9 55.9 55.9 55.9 55.9Pulse OX:SpO2 Readings fro m Last 6 Encounters:12/25/18 98%11/27/18 91%09/26/15 96%@LASTSAO2(6)@PHYSICAL EXA M:General: Lethargic,responding.Head: Normocephalic, without obvious abnormali ty, atraumatic.Eyes: Conjunctivae clear, anicteric sclerae. Pupils are equalNose : Nares normal. No drainage or sinus tenderness.Throat: Lips, mucosa, and tongue normal. No ThrushNeck: Supple, symmetrical, no adenopathy, thyroid: no n tender no carotid bruit and no JVD.Back: Symmetric, No CVA tenderness.Lungs: Scattered rhonchi,Chest wall: No tenderness or deformity. No Accessory muscle use.He art: Regular rate and rhythm, no murmur, rub or gallop.Abdomen: Soft, non-tende r. Not distended. Bowel sounds normal. No massesExtremities: Extremities normal, a traumatic, No cyanosis. No edema. No clubbingSkin: Texture, turgor normal . No rashes or lesions. Not JaundicedLymph nodes: Cervical, supraclavicular normal. Neurologic: Lethargic.Most recent labs:Recent Labs WBC 17.1*HGB 11.6*HCT 35.0*PLT 266Recent Labs 12/25/1902NA -- 139 139 143K -- 4.8 4.8 4.4CL -- 99 99 101CO2 39* 34* 36* 35*GLU -- 182* 1 00 101BUN -- 12 9 12CREA -- 0.44* 0.36* 0.43*CA -- 9.0 8.6 8.2*MG -- 2.1 2.0 2.1PHOS -- 3.0 3.7 4.1ALB -- 1.9* 1.8* 2.0*Recent Labs PH 7.47*PCO 2 51*PO2 67*HCO3 37*ABG:Recent Labs PH 7.47*PCO2 51*PO2 67*HCO3 37*Cultures:No results found for: CloudaccLab ResultsComponent Value Date/Time Culture result: NO GROWTH 1 DAY 12/24/2018 09:45 AM Culture result: NO GROWTH 2 DAYS 019 12:00 PM Culture result: NO GROWTH 2 DAYS 12/23/2018 11:40 AM Culture result: NO G ROWTH 4 DAYS 12/19/2018 12:30 PM Culture result: NO GROWTH 4 DAYS 12/19/2018 12:3 0 PM Culture result: NO GROWTH 1 DAY 12/12/2018 08:04 PM Culture result: NO G ROWTH 5 DAYS 12/12/2018 07:40 PM Culture result: NO GROWTH 5 DAYS 12/12/2018 07:4 0 PM Culture result: NO GROWTH 2 DAYS 11/20/2018 09:00 AM Culture result: NO G ROWTH 5 DAYS 11/07/2018 08:10 PM Culture result: NO GROWTH 5 DAYS 11/07/2018 08:0 0 PMImages:Cta Chest W Or W Wo ContResult Date: 11/08/2018Examination: CTA Chest ? PE angiography History: Hypoxia; rule out pneumoniaversus pulmonary embolism Prior s: None Technique: Low-dose, multiplanar,helical CTA chest was perfor med with bolus IV injection from lung apices tobases. 3D-reformatted images were obt ained and reviewed on a dedicated viewingworkstation and directly supervis ed. Contrast: A total of 71 mL of Isovue-370was administered intravenously for this procedure. Findings: No evidence ofpulmonary embolism is seen. There is d ecreased size of the right hemithorax fromchronic scarring and retraction with mediastinal shift left to right.Additional area of consolidation is seen in the rig ht lower lobe and suggestssuperimposed pneumonia with subsegmental atelectasis. Subsegmental atelectasisis also noted in the left lung base, with pleural parench ymal scarring. Lowlung volumes are seen. No pneumothorax seen. Aorta normal in calib er withoutaneurysm or dissection. Mediastinum no adenopathy. Mediastinal shift is see n inthe left and right as a result of chronic changes in the right hemithorax. Heart shows no chamber enlargement or pericardial effusion. No acute fractures seen in the bony thorax, sternum, manubrium and rib cage. Multiple compressiondefor mities are seen in the mid and lower thoracic spine, with superimposedspondyloarthropa thy. Cannot exclude acute fracture.Impression: No evidence of pul monary embolism Right lower lobe pneumoniasuggested. Incidental scarring and retraction in the right hemithorax fromremote/chronic inflammatory disease and/or trauma. Bibasilar subsegmentalatelectasis. Report Electron ically Signed By: Pawel Zafar M.D. -11/08/2018 12:40 AMXr Chest PortResult D ate: 11/07/2018XR CHEST PORT CLINICAL INDICATION PROVIDED:. "sob." COMPARISON: . 09/26/2015.FINDINGS:. The pericardial/cardiac silhouette is enlarg ed in the transversedimension. There is no pulmonary vascular congestion or interst itial edema.Linear density in the left lung base and faint densities in the right mi d tolower lung likely represent atelectasis. There is no lobar consolidation oreffusi on. There is no pneumothorax.IMPRESSION:. Bilateral lower lung atelectasis. No donna dence of consolidation oreffusion.Assessment/PlanActive Problem s: Pneumonia (11/08/2018) Sepsis due to undetermined organism (HCC) (12/12/2018) Acute resp failure combined, pneumonia acute copd exacerbationPLAN,Monitoring,bipap p rn for resp distressChest percussionss/p left pig tail catheterIvabx as per id,Iv ster oids taperbipap prn and at night.NebS/p peg,feeding started.D/w nursing staff,MARICEL Saldivareptember 2018The billing code submitted in association with this evaluation also includes thetime to review patient's prior records, communicate wit h the physician team,obtain corroborating data, and discuss the risk and benefits of the proposedmanagement plan with the patient and their family >30 minutes. Name Value Range Interpretation Code Description Data Harriett rce(s) Supporting Document(s ) ID Date Data Source [id number] 12/25/2018 02:36:46 PM EDT [facility] Name Value Range Interpretation Description Data Sup porting Code Source(s) Document(s ) pH of Arterial 7.47 7.35-7.4 Above high normal [facility] - Good blood 5 [facility] Carbon dioxide 51 mmHg 32-48 Above high normal [facility] - Good [Partial Taoist pressure] in Hospital Arterial blood Oxygen 67 mmHg 83-108 Below low normal [facility] - Good [Partial Taoist pressure] in Hospital Arterial blood Carbon 39 19-24 Above high normal [facility] dioxide, total mmol/L Taoist [Moles/volume] Hospital in Arterial blood Bicarbonate 37 21-28 Above high normal [facility] od [Moles/volume] mmol/L Taoist in Arterial Hospital blood Oxygen 96 % 94-[address] [facility] saturation in [facility] Base excess in 11.5 0-3 Above high normal [facility] Good Arterial blood mmol/L Taoist by calculation Hospital Body site [facility] Arterial [facility] patency Wrist Taoist artery --pre Hospital arterial puncture NASAL O26 Service comment [id number] [facility] ID Date Data Source [id number] 12/25/2018 01:58:37 PM EDT [facility] Problem: Nutrition DeficitGoal: *Optimiz e nutritional statusDescriptionPt to progress towards meeting >80% nutrient needs with in 3-7 daysOutcome: Progressing Towards GoalConsider change to low fat, fiber-fr ee EN formula Osmolite 1.5: bolus, 5 cansdaily (1775 kcal, 75 gm pro, 241 gm CHO, 58 gm fat, 905 mL free water) with 75ml free water flush before and after each b olusOnce J-tube placed and ready to start feeds: suggest Osmolite 1.5 continuous a t20 mL/hr progressing toward goal rate of 50 mL/hr (1800 kcal, 75 gm pro, 244 gmCHO, 59 gm fat, 914 mL water) and 125 mL free water flush q 4 hr once IVF d/c'dBolus f eedings not appropriate for J-tube Name Value Range Interpretation Code Description Data Harriett rce(s) Supporting Document(s ) ID Date Data Source [id number] 12/25/2018 01:57:27 PM EDT [facility] NUTRITIONFollow Up NoteSubjective: NANCY agarwal pt receiving bolus formula, but having loose stools. Forpossible J-tube placeme nt tomorrow.Nutrition Rx: Pulmocare bolus q 4 hr (5x), 85 mL free water before and aft ereach bolus (held)Labs: POC glu 118, 136, 146 Glu 182 Creat 0.44Medications review ed. Receiving Solu-Medrol.Skin: 3+ genital, 2+LUE, RUE edema; butch score 13GI: G-t ube, loose BM's per RNWeight: 55.9 kg (back down 1.7 kg since last assessment) Nutri tion Diagnosis: remains the same (Increased protein and energy needs) Consider singleton e to low fat, fiber-free EN formula Osmolite 1.5: bolus, 5 cansdaily (1775 kcal, 75 g m pro, 241 gm CHO, 58 gm fat, 905 mL free water) with 75ml free water flush before and after each bolusOnce J-tube placed and ready to start feeds: suggest Osmolite 1 .5 continuous at20 mL/hr progressing toward goal rate of 50 mL/hr (1800 kcal, 75 gm pro, 244 gmCHO, 59 gm fat, 914 mL water) and 125 mL free water flush q 4 hr once IVF d/c'dBolus feedings not appropriate for J-tube Will continue to monitor EN, Skin integrity and GI status. Discharge Planning: Pending clinical courseCandy Correa RD Name Value Range Interpretation Code Description Data Harriett rce(s) Supporting Document(s ) ID Date Data Source [id number] 12/25/2018 12:38:55 PM EDT [facility] Name Value Range Interpretation Description Data Sup porting Code Source(s) Document(s ) Glucose 118 MG/DL 65-110 Above high normal [facility] [Mass/volume] [facility] in Blood by Hospital Automated test strip ID Date Data Source [id number] 12/25/2018 11:48:00 AM EDT [facility] Pt resting comfortably but as of yesterd ay, not ready for endoscopic creation ofG to J tube feeds.This will require removal o f Lozano type tube, insertion of large borereplacement tube, and endoscopic jocelyn cement of "tube within tube" and clipping indistal duodenum.We can proceed tomorro w or "later", as per when cleared by pulmonary Name Value Range Interpretation Code Description Data Harriett rce(s) Supporting Document(s ) ID Date Data Source [id number] 12/25/2018 10:52:49 AM EDT [facility] Progress NOTENAME: Evelio AbrahambeinDOB : 1950MRN: [id number]/Time: 12/25/2018 9:15 AMHISTORY OF PRESENT ILLN ESS:Evelio is a 68 y.o. male who presents from [facility] with medical history ofDysphag ia with recent admission s/p surgical peg placement on 11/17/18, severeintellectual disability, Chronic respiratory failure, hyperparathyroidunspecified, personal h/ o pulmonary embolus, anxiety disorder, kyphosis andschizophrenia.The patient is unable to provide a history due to his mental disability. Thenursing home staf f reporting pt had a cough, fever to 103 F and hypoxia. ChestXR showed suspicion f or a Pneumonia. Pt was given Iv Cefepime, Vancomycin andSolu- medrol. Pt was later found minimally responsive and was sent to the ED. In the ED, chest xr showed some streaky changes at the lung bases. ABG showedpH 7.40/55/56/34/ O2 SAT 90 % on 2 LPM and Lactic Acid was elevated to 5.5. Thepatient was given Iv Zosyn, Solu-Medr ol, nebulizer and IVF.Repeat lactic acid was still elevated at 5.3.The patient was ad mitted with enxounter diagnosis of Sepsis due to unspecifiedorganism, Pnermonia, unspe cified and COPD exacerbation.The patient was seen and examined at bedside he is less lethargic, nonverbbal.He is coughing. 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 No pertinent surgical history. Social HistoryTobacco Use Smoking status: Never Smoker Smokeless tobacco: Never U sedSubstance Use Topics Alcohol use: NoHistory reviewed. No pertinent family history.No Known AllergiesPrior to Admission medicationsMedication Sig Start Date End Date Taking? Authorizing Providerpantoprazole (PROTONIX) 40 mg gr anules for oral suspension 40 mg by Per G Tuberoute Daily (before breakfast). 11/28 Yes Mili Hills, DObudesonide (PULMICORT) 0.5 mg/2 mL nbsp 2 mL by Neb ulization route two (2) timesa day for 30 days. 11/27/18 12/27/18 Yes Cesar Hills, DOmultivitamin (ONE A DAY) tablet Take 1 Tab by mouth daily. Yes Provider,Histo ricalclorazepate (TRANXENE) 3.75 mg tablet Take by mouth nightly. Yes Provider,H istoricalalbuterol-ipratropium (DUO-NEB) 2.5 mg-0.5 mg/3 ml nebu 3 mL by Nebulization route every six (6) hours as needed. Yes Provider, HistoricallamoTRIgine (LAMICTA L) 25 mg tablet Take 50 mg by mouth two (2) times a day.Yes Provider, Historicalcina calcet (SENSIPAR) 30 mg tablet Take 60 mg by mouth daily. Yes Provider,Historicalva lproate (DEPAKENE) 250 mg/5 mL syrup Take 750 mg by mouth two (2) times a day.Yes Prov ider, HistoricalREVIEW OF SYSTEMS: [x] Unable to obtain ROS due to patient factors.Obj ective:VITALS:Visit VitalsBP 105/60 (BP 1 Location: Left arm, BP Patient Position: At rest)Pulse 73Temp 98.7 F (37.1 C)Resp 17Ht 5' 2" (1.575 m)Wt 55.9 kg (123 lb 3 .2 oz)SpO2 100%BMI 22.53 kg/m PHYSICAL EXAM:General: Alert, , no distress, a ppears stated age.Head: Normocephalic, without obvious abnormality, atraumatic. Eyes: Conjunctivae clear, anicteric sclerae. Pupils are equalThroat: Lip s, mucosa, and tongue normal. No ThrushNeck: Supple, symmetrical, no adenopathy, n o carotid bruit and no JVD.Back: Symmetric, No CVA tenderness.Lungs: Bilateral air entry.. Decreased breath sounds RUL. No Wheezing orRhonchi. No rales.C hest wall: No Accessory muscle use.Heart: Regular rate and rhythm, no murmur, or rubAbdomen: Positive peg, non-tender. Not distended. Bowel sounds normal. Nomasse sExtremities: Extremities normal, atraumatic, No cyanosis. No edema. No clubbingSkin: Warm and dry. No rashes or lesions. Not JaundicedLymph nodes: Cervical, supracla vicular normal.Psych: Not anxious or agitated.Neurologic: EOMs intact. No fac ial asymmetry. No aphasia or slurred speech.Generalized weakness, wheel chair bound., Alert and Awake, nonverbal. .LAB DATA REVIEWED:Recent Results (from the p ast 24 hour(s))GLUCOSE, POC Collection Time: 12/24/18 11:57 AMResult Value Ref Range Glucose, bedside 106 65 - 110 MG/DLGLUCOSE, POC Collection Time: 12/24/18 7:19 PMRe sult Value Ref Range Glucose, bedside 116 (H) 65 - 110 MG/DLGLUCOSE, POC Collection Ti me: 12/25/18 12:02 AMResult Value Ref Range Glucose, bedside 146 (H) 65 - 110 MG/DLR ENAL FUNCTION PANEL Collection Time: 12/25/18 3:15 AMResult Value Ref Range Sodium 13 9 136 - 145 mmol/L Potassium 4.8 3.5 - 5.1 mmol/L Chloride 99 98 - 107 mmol/L CO2 3 4 (H) 21 - 32 mmol/L Anion gap 11 10 - 20 mmol/L Glucose 182 (H) 74 - 106 mg/dL BU N 12 7 - 18 mg/dL Creatinine 0.44 (L) 0.70 - 1.30 mg/dL GFR est AA >60 >60 ml/min/1.7 3m2 GFR est non-AA >60 >60 ml/min/1.73m2 Calcium 9.0 8.5 - 10.1 mg/dL Phosphorus 3.0 2.5 - 4.9 mg/dL Albumin 1.9 (L) 3.5 - 4.7 g/dLMAGNESIUM Collection Time: 12/25/18 3:15 AMResult Value Ref Range Magnesium 2.1 1.6 - 2.6 mg/dLNT-PRO BNP Collection Patria e: 12/25/18 3:15 AMResult Value Ref Range NT pro-BNP 2,137 (H) 0 - 125 PG/MLGLUCOSE, POC Collection Time: 12/25/18 6:27 AMResult Value Ref Range Glucose, bedside 136 (H) 65 - 110 MG/DLAssessment/Plan:Active Problems: Pneumonia (11/08/2018) Sepsis due to undetermined organism (HCC) (12/12/2018) Acute Respiratory Failure wi th hypercapnia and Hypoxia/ improved Metabolic Acidosis - Resolving Sepsis -p oa Metabolic Encephalopathy/ improved Aspiration Pneumonia Acute COPD exacerba tion Dysphagia s/p surgically place,emt of peg Mentally challenged Seizure disorder Hyperparathyroid worsening pleural effusion bilaterallyS/p thoracentesis PLAN:Risk of deterioration: []Low []Moderate1. Fo r PEG replacment when medically clear2. IV fluids3.O2 NC/BIPAP4.off v ZosynChest tu be care5. Pulmonary follow up6. ID follow up7. CT chest , bilateral Pleural effusi on8. Restart officer captain medications via peg Covering for Admitting Physician: Oralia Frankel MD December 9:15 AM Name Value Range Interpretation Code Description Data Harriett rce(s) Supporting Document(s ) ID Date Data Source [id number] 12/25/2018 09:38:20 AM EDT [facility] Portable chest x-ray.PRIOR EXAM: X-ray HISTORY: Pneumonia FINDINGS: The heart is normal in size. The mediastinum and p ulmonary vessels areunremarkable. There is a small right pleural effusion.. A tube pr ojected over the left upper quadrant of the abdomen..IMPRESSION:Small right pleural effusion. Signing date/time: 12/25/2018 9:38 AMSigned by: KARO RAMIREZ Name Value Range Interpretation Code Description Data Harriett rce(s) Supporting Document(s ) ID Date Data Source [id number] 12/25/2018 07:57:21 AM EDT [facility] [place] [id number] [address] JERMAINE [id number]: EVELIO CARLINMRN: [id number]: 1ACCT#: [id number] DATE: 12/12/2018 CONSULTATIONCONSULT DATE: 12/18/2018HISTORY OF PRESENT ILLNESS: T he patient is a 68-year-old man whom we are askedtosee regarding the possible conver elio of a gastrostomy feeding tube to ajejunostomyfeeding tube.The patient und erwent surgical gastrostomy tube placement approximately sixweeks agobecause the pe rcutaneous route was not feasible because of an intrathoracicstomach.He is now readmi tted with aspiration pneumonia, and we are asked to assess as tothefeasibility of c onverting him to jejunostomy tube feedings via the endoscopicroute.The patient had been tolerating his tube feedings until he was readmitted withpneumonia. He is rec eiving antibiotics and pulmonary toilet. There has been nogastrointestinal proble ms, such as vomiting, diarrhea, abdominal pain, GIbleeding,etc, while he was being maintained on tube feedings. Because of the pneumonia,thethought of changing him to a jejunostomy tube feeding system has been proposed.PAST MEDICAL HISTORY: Signific ant for multiple medical problems includingintellectual disability, chroni c respiratory failure, hyperparathyroidism,remotehistory of pul monary embolism, schizophrenia.ALLERGIES: HE HAS NO KNOWN DRUG ALLERGIES.MEDICATIONS OUTPATIENT:1. Protonix.2. Pulmicort.3. Tranxene.4. DuoNeb.5. Lamictal.6. Sen sipar.7. Valproic acid.CURRENT MEDICATIONS: He is currently receiving,1. Mucomyst.2 . DuoNeb.3. Pulmicort.4. Sensipar.5. Subcutaneous heparin.6. Lamictal.7. So elham-Medrol.8. Protonix.10. Zosyn.11. Valproic acid.SOCIAL HISTORY: Negative for alcohol, tobacco or drug abuse in this obviouslyhandicapped individual. The ab ove information has been obtained by discussionwithmedical and nursing staffi and chart review.PHYSICAL EXAMINATION:GENERAL: Reveals a well-dev eloped, well-nourished man, who is lying in bed andresting quite comfortably.HEENT: Normocephalic and atraumatic. Sclerae nonicteric. Conjunctivae notinjected.NE CK: Supple without thyromegaly or JVD.LYMPHATICS: Not pathologically enla rged.LUNGS: Diminished breath sounds at bases and scattered rales.CARDIOVASCULAR : Regular rate without murmur, rub or gallop.ABDOMEN: Soft, nontender, nondis tended. There are no masses or enlargedorgans.Gastrostomy tube site is clean, dry, and well healed.EXTREMITIES: No cyanosis or clubbing.IMPRESSION: The pa tient with apparent aspiration pneumonia despite the factthat hedoes only receive his nutrition via a gastrostomy tube. Thus, we have beenrequestedto convert his feed ings to jejunostomy tubes.Technically, this is a reasonably easy procedure to do inv olving endoscopicplacementand clipping of a thin jejunostomy tube advanced through t he gastrostomy tubeandthen clipped into the jejunum. This will require removal of t he currentsurgicallyplaced Lozano type-tube, replacement with a large-bore gastrostom y tube and thenendoscopic placement of the more slender jejunostomy feeding tube wi th placementofan EndoClip to hold it in the small bowel. The major problem is wheth er or notthistube will remain in the jejunum chronically versus if it is pulled upon or ifthepatient vomits, it may simply end up back in the stomach.The proper kit has b een ordered today, and he is tentatively scheduled forMonday,especially to allow for continued pulmonary improvement, toilet therapy, etc.Thank you very much for the courtesy of this consultation. PASCUAL TREJO MDDD: #12/18/2018 10:02:09 /NEHEMIAH /[email or web address] #: [id number] / [id number] Name Value Range Interpretation Code Description Data Harriett rce(s) Supporting Document(s ) ID Date Data Source [id number] 12/25/2018 07:36:08 AM EDT [facility] Review BIPAP settings, alarms and skin a dhesive With next shift RT Marilynn Ofelia Name Value Range Interpretation Code Description Data Harriett rce(s) Supporting Document(s ) ID Date Data Source [id number] 12/25/2018 07:36:08 AM EDT [facility] Bedside and Verbal shift change report g iven to Wes Saldana RN (oncomingnurse) by Leann Ryan RN(offgoOutput, MAR an d Recent Results.ing nurse). Report given with SBAR, Kardex, Intake/ Name Value Range Interpretation Code Description Data Harriett rce(s) Supporting Document(s ) ID Date Data Source [id number] 12/25/2018 06:40:34 AM EDT [facility] Name Value Range Interpretation Description Data Sup porting Code Source(s) Document(s ) Glucose 136 MG/DL 65-110 Above high normal [facility] [Mass/volume] [facility] in Blood by Hospital Automated test strip ID Date Data Source [id number] 12/25/2018 05:08:41 AM EDT [facility] Name Value Range Interpretation Code Description Data Harriett rce(s) Supporting Document(s ) NOLOINC 2137 PG/ML 0-125 Above high normal [facility] NT-proBNP INTERPRETATION: ACUTE CHF UNLIKELY IF NT-proBNP: <125 PG/ML FOR AGE <75 <450 PG/ML FOR AGE >75 CHF LIKELY IF NT-proBNP: >450 PG/ML FOR AGE <50 >900 PG/ ML FOR AGE 50-75 >1800 PG/ML FOR AGE >75 CHF VERY LIKELY IF NT-proBNP: >10,000 PG/ML (REGARDLESS OF AGE) ID Date Data Source [id number] 12/25/2018 05:08:41 AM EDT [facility] Name Value Range Interpretation Description Data Sup porting Code Source(s) Document(s ) Magnesium 2.1 mg/dL 1.6-2.6 [facility] [Mass/volume] Tao[facility] in Serum or Hospital Plasma ID Date Data Source [id number] 12/25/2018 05:08:41 AM EDT [facility] Name Value Range Interpretation Description Data Sup porting Code Source(s) Document(s ) Sodium 139 136-145 [facility] [Moles/volume] mmol/L [facility] in Serum or Hospital Plasma Potassium 4.8 3.5-5.1 [facility] [Moles/volume] mmol/L [facility] in Serum or Hospital Plasma Chloride 99 98-107 [facility] [Moles/volume] mmol/L [facility] in Serum or Hospital Plasma Carbon 34 21-32 Above high normal [facility] dioxide, total mmol/L [facility] [Moles/volume] Hospital in Serum or Plasma Anion gap in 11 10-20 [facility] Serum or mmol/L [facility] Plasma Hospital Glucose 182 74-106 Above high normal [facility] [Mass/volume] mg/dL [facility] in Serum or Hospital Plasma Urea nitrogen 12 mg/dL 7-18 [facility] [Mass/volume] [facility] in Serum or Hospital Plasma Creatinine 0.44 0.70-1.3 Below low normal [facility] [Mass/volume] mg/dL 0 [facility] in Serum or Hospital Plasma Glomerular >60 [facility] filtration Taoist rate/1.73 sq M Hospital predicted among blacks [Volume Rate/Area] in Serum or Plasma by Creatinine-bas ed formula (MDRD) Glomerular >60 [facility] filtration Tao[facility] rate/1.73 sq M Hospital predicted among non-blacks [Volume Rate/Area] in Serum or Plasma by Creatinine-bas ed formula (MDRD) Calcium 9.0 8.5-10.1 [facility] [Mass/volume] mg/dL [facility] in Serum or Hospital Plasma Phosphate 3.0 2.5-4.9 [facility] [Mass/volume] mg/dL [facility] in Serum or Hospital Plasma Albumin 1.9 g/dL 3.5-4.7 Below low normal [facility] [Mass/volume] [facility] in Serum or Hospital Plasma by Bromocresol purple (BCP) dye binding method ID Date Data Source [id number] 12/25/2018 12:21:27 AM EDT [facility] Name Value Range Interpretation Description Data Sup porting Code Source(s) Document(s ) Glucose 146 MG/DL 65-110 Above high normal [facility] [Mass/volume] [facility] in Blood by Hospital Automated test strip ID Date Data Source [id number] 12/24/2018 07:35:14 PM EDT [facility] Progress NoteMID-[facility] ,[facility].Krystian Monae MD., F.C.C.P.Stella Hamilton MD., F.C.C.P. 9W [address] [facility] [address] [place] [id number] [place] [address] [phone]: Evelio Carlin Sex: male DOA: 12/12/2018Da te of : 1950 Age: 68 y.o. LOS: LOS: 12 daysSubjective:Mr. Maximiliano mata is a 68 y.o. year old male who is being seen for ACUTE RESPIRATORYDISTRESS PATIENT IS FOR P E G INSERTION BUT HE LOOKS IN RESPIRATORY DISTRESS ,RR >30 /MT SHALLOW , TACHYONIC,HAVE AUDIBLE WHEEZING , HE IS NOT CLEARED FOR PEG INSERTION YET. .Objective:Vital Signs:Patient Vitals for the past 24 hrs : BP Temp Pulse Resp SpO2 Ebiotp90/11/19 1537 114/67 97.7 F (36.5 C) 89 18 97 % -03/03 1332 - - - - 97 % -12/24/18 1120 125/65 97.2 F (36.2 C) 99 15 92 % -12/24/18 0 900 - - - - 94 % -12/24/18 0803 - - - - 97 % -12/24/18 0713 103/63 97.8 F (36.6 C) 84 18 96 % -12/24/18 0628 - - - - - 61.2 kg (135 lb)12/24/18 0432 113/74 97.8 F (36 .6 C) 86 18 97 % -12/23/18 2336 106/59 98.2 F (36.8 C) 87 18 97 % -12/23/182035 - - - - 97 % -12/23/181947 107/71 97.9 F (36.6 C) 97 16 97 % -Pulse OX:SpO2 Read ings from Last 6 Encounters:12/24/18 97%11/27/18 91%09/26/15 96%@LASTSAO2(6)@ Physical Exam:IN RESPIRATORY DISTRESS , DESATURATED OCCASIONALLY General: Alert, cooperative, MODERATE RESPIRATORY distress, appearsstated age. Head: Normocephalic, without obvious abnormality, atraumatic. Eyes : Conjunctivae/corneas clear. PERRL, EOMs intact. Nose: Nares normal. No drainage or sinus tenderness Throat: Lips, mucosa, and tongue jazzmine l Neck: Supple, symmetrical, trachea midline, no adenopathy,thyroid: no enlargement/tenderness/nodules, no carotid bruit and no JVD. Elham ngs: WHEEZING +3-4 , INCREASED RHONCHI , INCREASED RALES toauscultation bilater ally. Chest Wall: No tenderness or deformity. Heart: Regular ra te and rhythm, S1, S2 normal, no murmur, click,rub or NO gallop. Abdomen: Soft, non-tender. Bowel sounds normal. No masses, No organomegaly. Extremities: Extremities normal, atraumatic, no cyanosis or edema. Pulses: 4+ bilateral ly. Skin: Skin color, texture, turgor normal. No rashes or lesions. Ne urologic: CNII-XII intact. No focal motor or sensory deficit.Intake and Output:Las t three shifts: 12/23 0701 - 12/24 1900In: 1390 [I.V.:100]Out: 5440 [Urine:5300; Dr diehl:140]Lab Results:Recent Results (from the past 24 hour(s))GLUCOSE, POC Collection Time: 12/24/18 12:09 AMResult Value Ref Range Glucose, bedside 113 (H) 65 - 110 MG/DLR ENAL FUNCTION PANEL Collection Time: 12/24/18 3:11 AMResult Value Ref Range Sodium 13 9 136 - 145 mmol/L Potassium 4.8 3.5 - 5.1 mmol/L Chloride 99 98 - 107 mmol/L CO2 3 6 (H) 21 - 32 mmol/L Anion gap 9 (L) 10 - 20 mmol/L Glucose 100 74 - 106 mg/dL BUN 9 7 - 18 mg/dL Creatinine 0.36 (L) 0.70 - 1.30 mg/dL GFR est AA >60 >60 ml/min/1.73m2 G FR est non-AA >60 >60 ml/min/1.73m2 Calcium 8.6 8.5 - 10.1 mg/dL Phosphorus 3.7 2.5 - 4.9 mg/dL Albumin 1.8 (L) 3.5 - 4.7 g/dLMAGNESIUM Collection Time: 12/24/18 3:11 AMResult Value Ref Range Magnesium 2.0 1.6 - 2.6 mg/dLGLUCOSE, POC Collection T jose alejandro: 12/24/18 6:21 AMResult Value Ref Range Glucose, bedside 96 65 - 110 MG/DLURINAL YSIS W/ RFLX MICROSCOPIC Collection Time: 12/24/18 9:45 AMResult Value Ref Range Color YELLOW YEL Appearance CLEAR CLEAR Specific gravity 1.007 1.003 - 1.030 pH (UA) 8.0 4.6 - 8.0 Protein NEGATIVE NEG mg/dL Glucose NEGATIVE NEG mg/dL Ketone NEGATIVE NEG mg/dL Bilirubin NEGATIVE NEG Blood NEGATIVE NEG Urobilinogen 0.2 0.2 - 1.0 EU/dL Nitrites NEGATIVE NEG Leukocyte Esterase NEGATIVE NEGGLUCOSE, POC Colle ction Time: 12/24/18 11:57 AMResult Value Ref Range Glucose, bedside 106 65 - 110 MG/D LABG:No results for input(s): PH, PCO2, PO2, HCO3, FIO2 in the last 72 hours.Recent G lucose Results:Lab ResultsComponent Value Date/Time GLU 100 12/24/2018 03:11 AM GL UCPOC 106 12/24/2018 11:57 AM GLUCPOC 96 12/24/2018 06:21 AM GLUCPOC 113 (H) 12/14 12:09 AM@LABAPCYTOINTERPRETATION@[facility] Results Procedure Component Value Units Date/Time CULTURE, ANAEROBIC [[id number]] Collected: 12/19/18 1230 Order Status: Completed Specimen: Thoracentesis Updat ed: 12/24/18 1421 Special Requests: NO SPECIAL REQUESTS Culture result: NO HAIDER WTH 4 DAYS CULTURE, URINE [[id number]] Collected: 12/24/18 0945 Order Status: Completed Specimen: Cath Urine Updated: 12/24/18 1017 CULTURE, BLOOD [[id number]] Collected: 12/23/18 1140 Order Status: Completed Specimen: Blood Updated: 03/03 0850 Special Requests: NO SPECIAL REQUESTS Culture result: NO GROWTH AFTE R 19 HOURS CULTURE, BLOOD [[id number]] Collected: 12/23/18 1200 Order Status: Completed Specimen: Blood Updated: 12/24/18 0850 Special Requests: NO SPEC IAL REQUESTS Culture result: NO GROWTH AFTER 20 HOURS CULTURE, BODY FLUID W GRAM STAI N [[id number]] Collected: 12/19/18 1230 Order Status: Completed Specimen: Left Updat ed: 12/23/18 1317 Special Requests: NO SPECIAL REQUESTS GRAM STAIN FEW WBC'S NO ORGANISMS SEEN Culture result: NO GROWTH 4 DAYS CULTURE, BLOOD [[id number]] Colle mikel: 12/12/181939 Order Status: Completed Specimen: Blood Updated: 12/17/18642 Special Requests: NO SPECIAL REQUESTS Culture result: NO GROWTH 5 DAYS CULTURE , BLOOD [[id number]] Collected: 12/12/181939 Order Status: Completed Specimen: Bloo d Updated: 12/17/18642 Special Requests: NO SPECIAL REQUESTS Culture result: NO GROWTH 5 DAYS CULTURE, URINE [[id number]] Collected: 12/12/182003 Order Status: Completed Specimen: Urine Updated: 12/14/1814 Special Requests: NO SPEC IAL REQUESTS Culture result: NO GROWTH 1 DAY CULTURE, URINE [[id number]] Collected: 0 12/12/181929 Order Status: Canceled Specimen: Cath UrineImages:@IMAGESENCOR D@Xr Chest Sngl VResult Date: 11/25/2018AP portable film of the chest clinical vi cation pneumonia Study is compared toprevious examination of November 22, 2018. Study de monstrates a left pleuraleffusion as well as infiltrate at the left base. This was pr esent on previousstudy. There has been interval development of a small right pl eural effusionwith linear streaking at the right base this may represent infiltrate oratelectasis. Heart size difficult to evaluate.IMPRESSION: Infiltrate left bas e with pleural effusion, right pleural effusionwith streaking at right lower elham ng field which may represent infiltrate oratelectasisCt Chest Wo ContResult Date : 12/18/2018Referring Physician: KRYSTIAN MONAE Patient Name: EVELIO CARLIN THIS IS AFINAL REPORT FROM [facility] DATE OF SERVICE: 2018-12-18 01:22:40 IMAGES:555 EXAM: CT CHEST WO CONTRAST HISTORY: .. Right lower lobe atelectasis..TECHNIQUE: Helic al axial imaging from the thoracic inlet through the adrenalglands without contra st. Sagittal and coronal reconstructions were obtained.COMPARISON: CT chest without co ntrast of 12/13/2018. FINDINGS: .. Evaluationremains limited due to lack of IV contrast and patient positioning. The imagedthyroid gland remains atrophic. Th e aorta remains normal in caliber.Atherosclerotic calcifications a re again seen in the aorta. There is againcardiomediastinal shift towards the right. The heart remains normal in size andno pericardial effusion is noted. No obvious lymphadenopathy seen on thisunenhanced scan. No pneumothorax is noted. Since the prior exam there is beenincrease in bilateral pleural effusi ons with associated consolidations. Acalcified granuloma is again seen in th e right lower lobe. The imaged upperabdomen does not demonstrate any gross acute maggy nges. Osteopenia is again noted.Degenerative changes again seen in the imaged spine. Old healed right posteriorlower rib fractures are again seen.IMPRESSION: .. Limited s tudy demonstrating increase in bilateral pleuraleffusions with associated consoli dations with persistent cardiomediastinal shifttowards the right. Stable findings as noted above.. One or more of the followingdose reduction techniques were used: automated exposure control, adjustment ofthe mA and/or kV according to patient size, use of iterative reconstructivetechnique. THIS DOCUMENT H BEEN ELECTRONICALLY SIGNED Kamran Gillette MD 12/18/2018 04:49 GINA Verde Please call [facility] [phone] with questions. This report was electronically signed by: Tala MENDEZ 12/18/2018 04: 50 AMCt Chest Wo ContResult Date: 12/13/2018History: Respiratory difficulty . FINDINGS: CT scanning of the chest wasperformed helically from the lung api martine to the upper abdomen withoutintravenous contrast material. Sagittal and coronal reconstructed images aresubmitted. Scanning was performed utilizing dose lowering te chniques and iscompared to the prior study of 11/08/2018. The study is quite limited by patientpositioning. Evaluation of thoracic vascular structures is limited withoutin travenous contrast material does not reveal evidence of aneurysmal dilatationor defi nite CT evidence of dissection. Coronary artery calcification is seen.There is mi nimal calcification of the aortic arch. There is minimalcalcification of the descendin g thoracic aorta. There is no definite evidence ofany pathologically enlarged l ymph node in the visualized portions of themediastinum or axillae. Evaluation of pulmonary parenchymal structures revealssome atelectatic change in the right upper lo be. There is a small left pleuraleffusion as well as left basilar atelectatic change. There is some patchyopacity within the right middle lobe and right lower lobe which c ould also beinfiltrative in nature. Limited evaluation of upper abdominal structures isunremarkable. There is deviation of mediastinal structures to the right. Thi scould be as result of atelectatic change within the right lung. This has beenseen previously and is unchanged.IMPRESSION: Extremely limited study by patient posit ioning. Deviation ofmediastinal structures to the right as has been seen on prior stud ies. Leftpleural effusion. Bilateral infiltrates and atelectasis, greater on the rightthan the left.Cta Up Ext Lt W ContResult Date: 12/18/2018History: Arm cl audication. FINDINGS: CTA of the left upper extremity wasperformed helically from le ricky of the shoulder through the fingers after theintravenous administration of 119 cc of Isovue. Sagittal, coronal, and 3-Dreconstructed images obtained on an RealtimeBoard workstation are submitted. Noprior studies are available for comparison. Th e left subclavian artery is widelypatent. It is continuous with a widely patent left axillary artery. The axillaryartery is continuous with a widely patent left bra chial artery. The brachialartery bifurcates into a radial and ulnar artery just belo w the elbow. From thispoint distally streak artifact from patient positioning limits evaluation.However, the ulnar artery appears widely patent to the wrist. The radial a rteryis less well opacified but does appear patent to the wrist as well. Anintraosse ous artery also appears patent although it is poorly visualized aswell. The digital ar teries are not visualized on this study. There arebilateralpleural effusions note d both of which are moderate to large. Theeffusion on the left one is larger th an the right. Bibasilar atelectatic changethroughout much of the lower lobes is seen. There is a significant shift ofmediastinal structures to the right. T he liver is decreased in attenuationcompatible with fatty infiltr ation. The spleen is unremarkable. The adrenalglands are normal in appearance. The pancreas is grossly normal as is thegallbladder. A gastrostomy tube is no mikel in situ. The kidneys are unremarkable.There is a midline abdomina l wall hernia containing large and small bowel aswell as mesentery without eviden ce of obstruction. There is some presacralthickening and possibly some fr ee fluid noted. The patient is status post ORIFof the left hip with metallic hardwa re in situ.IMPRESSION: Patent left upper extremity arterial vessels although eval uationdistally is limited. Bilateral pleural effusions and bibasilar atelectasis.Shif t of mediastinal structures to the right.Ct Abd Pelv Wo ContResult Date: 12/21/2018His tory: ? Maturity of g-tube tract Technique: CT of the abdomen and pelvis wasperforme d from the dome of the diaphragm to the pubic symphysis without oral orintravenous con trast with dose lowering techniques. Sagittal and coronalreconstructions were performe d. Evaluation of solid abdominal viscera iscompromised by by the lack of intraven ous contrast. Evaluation of the bowelloops is compromised lack of oral contrast. All C T scans at this facility areperformed using dose optimization technique as appropria te to a performed exam,to include automated exposure control, adjustment of the mA a nd/or kV accordingto patient size (including appropriate matching first site-specific examinations), or use of iterative reconstruction technique. Comparison: CT scanof the chest performed 12/19/18 Findings: There is a small right pleural effusionw ith adjacent atelectasis. There is minimal left pleural fluid with adjacentatelecta sis. There is a pigtail catheter again identified on the left. The exactlocatio n of this catheter is difficult to ascertain benefits above the diaphragmto below the diaphragm. On today's study the tip appears to be located below thediaphragm. There is a small right pleural effusion with adjacent atelectasis.There is a G-tube i dentified in the stomach. The liver, gallbladder, spleen,pancreas, kidneys an d adrenal glands are unremarkable. No abdominal, pelvic oringuinal lymphadenop athy is identified. No free intraperitoneal fluid is noted.There is a ventral wall h ernia containing loops of what appear to be small bowelhowever are difficult to foll ow. There is mild perirectal stranding andpresacral edema correlate clinically. No dilated loops of bowel are identified.There is mild diverticulosis of the colon. The prostate, bladder and seminalvesicles appear unremarkable. The re are streak artifact obscuring portions ofthe pelvis due to a left hip ORIF. The re is subcutaneous gas identified alongthe right lower anterior pelvic wall.IMPRESS ION: There is a G-tube identified in the stomach. There is a tailcatheter identif ied on the left. The tip appears to be located below thediaphragm although is d ifficult to assess on CT. There is a small residualamount of pleural fluid as well as atelectasis along the left diaphragm. Thereis perirectal stranding and presacr al edema.Ct Thoracentesis Insrt Chest TubeResult Date: 12/19/2018History: Pleura l effusion. PROCEDURE: After being informed of the risks,benefits, and potential alt ernatives procedure informed consent was obtained.The patient was placed on the t able in the iuzyb-allx-buns decubitus position.CT scanning was performed locat ion was chosen over the left flank. However, dueto the significant amount of patient motion and breathing motion was difficultto accurately assess a location for percuta neous paracentesis. Therefore, thiswas performed manually. After the chosen reg ion was prepped and draped in thenormal sterile fashion using maximum sterile ba rrier technique a lidocaineneedle was placed in the skin. This appeared to be in good position. Lidocainewas then used to anesthetize the skin and subcutaneous ti ssues in this location.Attempts were made to pass an 8 Congolese pigtail catheter throug h this location.However, patient continuous motion was significant as well as excess ivebreathing during the procedure. The catheter was placed at the same interspa ceas well as marked on the prior CT sequence however, due to the excessive patientmot ion the catheter was far more inferior within the chest that on the priorsequences. Th e catheter appeared to enter the hemiabdomen on the left from theleft chest. The cath eter was then pulled back to position where clear yellowfluid was aspirated. It was then sewn in position However, It appeared tomigrate forward and on the CT scanning appeared to again transgress thediaphragm. It was therefore pulled back to a point where only a clear fluid wasaspirated and respiratory variation was noted within t he tube. It was then sewnin position using 2-0 silk sutures. FINDINGS: Initial CT s debora revealed amoderate left pleural effusion. Attempts to nancy an adequate l ocation forpercutaneous thoracentesis were quite limited due to excessive patient m otionand breathing throughout the procedure. A location that appear to be a safelocat ion was marked. However, when the catheter was placed in this sameinterspace as wel l as marked the catheter appeared to be far more inferiorwithin the hemithorax than that seen previously. It appeared to enter the lefthemithorax inferiorly and transg ress the diaphragm with no evidence pathologicsequela. Therefore, it was pul led back into the pleural space for adequatedrainage. 130 cc of lightly bloo d-tinged fluid was aspirated. The catheter wasattached to a Pleur-evac and wall suc tion.IMPRESSION: Left-sided thoracentesis described above.Xr Chest PortResult Date : 12/18/2018Portable chest x-ray. PRIOR EXAM: 12/12/2018 and 11/25/2018 HISTORY: Pneumon ia andpleural effusions FINDINGS: The heart is normal in size. The mediastinum andpu lmonary vessels are unremarkable. There is haziness within the lung basesbilaterall y... The bony structures are intact.IMPRESSION: Haziness within the l eunice bases bilaterally that could representsmall pleural effusions and/or subsegmental atelectasis. Similar findings wereseen on prior exams.Xr Chest PortRes ult Date: 12/13/2018History: Respiratory difficulty. FINDINGS: A frontal portable view of the chestis compared to the prior study from earlier in the same day. EKG leads overliethe chest. The cardiac silhouette is normal in size. The left l eunice is clear. Theright lung is poorly evaluated due to significant rotation. T he possibility ofright basilar infiltrate or atelectatic change cannot be excluded. M ediastinaland hilar structures are poorly evaluated as well.IMPRESSION: Study quit e limited due to rotation. Opacity at the right lung basemay be infiltrative or at electatic in nature.Xr Chest PortResult Date: 12/12/2018History: Fever. Lethargy. FINDI NGS: 2 frontal views of the chest are compared tothe prior study of 11/25/2018. EKG leads overlie the chest. The cardiacsilhouette is normal in size. The re may be some streaky changes at the lungbases. Evaluation of the lungs and m ediastinal structures is quite limited dueto rotation.IMPRESSION: Study quite limited by rotation. Basilar streaks noted.Medications:Current Facility-Admin istered MedicationsMedication Dose Route Frequency methylPREDNISolone (PF) (SOLU -MEDROL) injection 40 mg 40 mg IntraVENous Q8H dextrose 5% infusion 50 mL/hr Intr aVENous CONTINUOUS haloperidol lactate (HALDOL) injection 2 mg 2 mg IntraVENou s Q6H PRN acetaminophen (TYLENOL) solution 650 mg 650 mg Per NG tube Q4H PRN albu terol-ipratropium (DUO-NEB) 2.5 MG-0.5 MG/3 ML 3 mL Nebulization Q4H PRN potassium , sodium phosphates (NEUTRA-PHOS) packet 1 Packet 1 Packet Oral QID acetylcystein e (MUCOMYST) 100 mg/mL (10 %) nebulizer solution 200 mg 2 mLNebulization BID RT albuterol-ipratropium (DUO-NEB) 2.5 MG-0.5 MG/3 ML 3 mL Nebulization Q6H RT bacit racin 500 unit/gram packet 1 Packet 1 Packet Topical BID piperacillin-tazobactam (ZO SYN) 3.375 g in 0.9% sodium chloride (MBP/ADV) 100mL MBP 3.375 g IntraVENous Q8H budesonide (PULMICORT) 500 mcg/2 ml nebulizer suspension 500 mcg Nebulizati onBID RT lamoTRIgine (LaMICtal) tablet 50 mg 50 mg Per G Tube BID valproic acid (as sodium salt) (DEPAKENE) 250 mg/5 mL (5 mL) oral solution 750mg 750 mg Per G Tube B ID cinacalcet (SENSIPAR) tablet 60 mg 60 mg Oral DAILY pantoprazole (PROTONIX) gran ules for oral suspension 40 mg 40 mg Per G TubeACB heparin (porcine) injection 5,0 00 Units 5,000 Units SubCUTAneous Q12H sodium chloride (NS) flush 5-10 mL 5-10 mL IntraVENous PRNActive Problems: Pneumonia (11/08/2018) Sepsis due to und etermined organism (HCC) (12/12/2018)Assessment:Mr. Carlin is a 68 y.o. year old male who is being seen for ACUTE RESPIRATORYFAILURE .Evelio herrera is a 68 y.o. male who has been seen for respfailure.pneumonia,recently discharge d..Patient with MR,aspiration pneumonia,dysphagia,s/p peg placement,CO PD,pulmonaryembolism,schizophrenia was transferred from the long-term for fe [id number],shortness of breath and tachycardia.Patient is non verbal,unable toprovide history.History obtained from chart review.He was started on IVcefepim e,solumedrol and given a dose of IV vancomycin as per records from [place].Hewas afebrile on arrival to the ER with elevated lactic acid of 5.3with respiratory distr ess.course reviewed. 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 PROSPER JERONIMO FLUID pLAN PATIENT IS NOT CLEARED FOR P E G INSERTION YET DUE T O ACUTERESPIRATORY DISTRESS BIAPAP AT NIGHT NASAL CANNULA DAY TIMED/ C PREDNISONE RESTART SOLUMEDROL 40 MG Q 8 H I V ZOSYN IF HE DETERIORATES MAY NEED I NTUBATION PROGNOSIS IS GUARDED CHEST XRAY , ABG IN AM Krystian Monae MD [facility] 201[facility]24 PM Name Value Range Interpretation Code Description Data Harriett rce(s) Supporting Document(s ) ID Date Data Source [id number] 12/24/2018 07:23:57 PM EDT [facility] Bedside and Verbal shift change report g iven to Leann Ryan RN (oncoming nurse)by Rama Jaimes RN(offgoing nurse). Rep ort given with SBAR, Kardex, Intake/Output, MAR and RecentResults. Name Value Range Interpretation Code Description Data Harriett rce(s) Supporting Document(s ) ID Date Data Source [id number] 12/24/2018 07:33:39 PM EDT [facility] Name Value Range Interpretation Description Data Sup porting Code Source(s) Document(s ) Glucose 116 MG/DL 65-110 Above high normal [facility] - Good [Mass/volume] [facility] in Blood by Hospital Automated test strip ID Date Data Source [id number] 12/24/2018 12:14:55 PM EDT [facility] Name Value Range Interpretation Description Data Sup porting Code Source(s) Document(s ) Glucose 106 MG/DL 65-110 [facility] - Good [Mass/volume] Tao[facility] in Blood by Hospital Automated test strip ID Date Data Source [id number] 12/24/2018 11:28:58 AM EDT [facility] Pt needs PEG converted to J Tube once re sp status stable. Con' t to desaturate.CM to follow.1120 amEMERGENCY CONTACTS for pt are:1) JOYCE OVALLE (cousin) [phone] And [phone] Makes medicaldecision ( is a physician) with consultation with sisters below.2) MICHELL JORGE (s ister) [phone]) YULIET JIM [phone] with Joyce uribe who reports family does not want DNR and/or palliativecare - they want aggressive ca re. Name Value Range Interpretation Code Description Data Harriett rce(s) Supporting Document(s ) ID Date Data Source [id number] 12/24/2018 11:01:40 AM EDT [facility] Progress NOTENAME: Evelio AbrahambeinDOB : 1950MRN: [id number]/Time: 12/24/2018 9:15 AMHISTORY OF PRESENT ILLN ESS:Evelio is a 68 y.o. male who presents from [facility] with medical history ofDysphag ia with recent admission s/p surgical peg placement on 11/17/18, severeintellectual disability, Chronic respiratory failure, hyperparathyroidunspecified, personal h/ o pulmonary embolus, anxiety disorder, kyphosis andschizophrenia.The patient is unable to provide a history due to his mental disability. Thenursing home staf f reporting pt had a cough, fever to 103 F and hypoxia. ChestXR showed suspicion f or a Pneumonia. Pt was given Iv Cefepime, Vancomycin andSolu- medrol. Pt was later found minimally responsive and was sent to the ED. In the ED, chest xr showed some streaky changes at the lung bases. ABG showedpH 7.40/55/56/34/ O2 SAT 90 % on 2 LPM and Lactic Acid was elevated to 5.5. Thepatient was given Iv Zosyn, Solu-Medr ol, nebulizer and IVF.Repeat lactic acid was still elevated at 5.3.The patient was ad mitted with enxounter diagnosis of Sepsis due to unspecifiedorganism, Pnermonia, unspe cified and COPD exacerbation.The patient was seen and examined at bedside he is less lethargic, nonverbbal.He is coughing. 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 No pertinent surgical history. Social HistoryTobacco Use Smoking status: Never Smoker Smokeless tobacco: Never U sedSubstance Use Topics Alcohol use: NoHistory reviewed. No pertinent family history.No Known AllergiesPrior to Admission medicationsMedication Sig Start Date End Date Taking? Authorizing Providerpantoprazole (PROTONIX) 40 mg gr anules for oral suspension 40 mg by Per G Tuberoute Daily (before breakfast). 11/28 Yes Mili Hills, DObudesonide (PULMICORT) 0.5 mg/2 mL nbsp 2 mL by Neb ulization route two (2) timesa day for 30 days. 11/27/18 12/27/18 Yes Cesar Hills, DOmultivitamin (ONE A DAY) tablet Take 1 Tab by mouth daily. Yes Provider,Histo ricalclorazepate (TRANXENE) 3.75 mg tablet Take by mouth nightly. Yes Provider,H istoricalalbuterol-ipratropium (DUO-NEB) 2.5 mg-0.5 mg/3 ml nebu 3 mL by Nebulization route every six (6) hours as needed. Yes Provider, HistoricallamoTRIgine (LAMICTA L) 25 mg tablet Take 50 mg by mouth two (2) times a day.Yes Provider, Historicalcina calcet (SENSIPAR) 30 mg tablet Take 60 mg by mouth daily. Yes Provider,Historicalva lproate (DEPAKENE) 250 mg/5 mL syrup Take 750 mg by mouth two (2) times a day.Yes Prov ider, HistoricalREVIEW OF SYSTEMS: [x] Unable to obtain ROS due to patient factors.Obj ective:VITALS:Visit VitalsBP 103/63 (BP 1 Location: Left arm, BP Patient Position: At rest;Head of bedelevated (Comment degrees))Pulse 84Temp 97.8 F (36.6 C)R david 18Ht 5' 2" (1.575 m)Wt 61.2 kg (135 lb)SpO2 97%BMI 24.69 kg/m PHYSICAL EXAM: General: Alert, , no distress, appears stated age.Head: Normocephalic, withou t obvious abnormality, atraumatic.Eyes: Conjunctivae clear, anicteric sclerae. Pupils are equalThroat: Lips, mucosa, and tongue normal. No ThrushNeck: Supple, symmetrical, no adenopathy, no carotid bruit and no JVD.Back: Symmetric, No CVA tenderness.Lungs: Bilateral air entry.. Decreased breath sounds RUL. N o Wheezing orRhonchi. No rales.Chest wall: No Accessory muscle use.Heart: Regular rate and rhythm, no murmur, or rubAbdomen: Positive peg, non-tender. Not distended . Bowel sounds normal. NomassesExtremities: Extremities normal, atraumatic, No cyano sis. No edema. No clubbingSkin: Warm and dry. No rashes or lesions. Not Jaundice dLymph nodes: Cervical, supraclavicular normal.Psych: Not anxious or agitated.N eurologic: EOMs intact. No facial asymmetry. No aphasia or slurred speech.Generalized weakness, wheel chair bound., Alert and Awake, nonverbal. .LAB DATA REVIEWED:Rec ent Results (from the past 24 hour(s))CULTURE, BLOOD Collection Time: 12/23/18 11:40 AMResult Value Ref Range Special Requests: NO SPECIAL REQUESTS Cu lture result: NO GROWTH AFTER 19 HOURSGLUCOSE, POC Collection Time: 12/23 11:52 AMResult Value Ref Range Glucose, bedside 85 65 - 110 MG/DLCULTURE, BLOOD Collection Time: 12/23/18 12:00 PMResult Value Ref Range Special Requests: NO SPE CIAL REQUESTS Culture result: NO GROWTH AFTER 20 HOURSGLUCOSE, POC Collection Time: 6:01 PMResult Value Ref Range Glucose, bedside 116 (H) 65 - 110 MG/DLG LUCOSE, POC Collection Time: 12/24/18 12:09 AMResult Value Ref Range Glucose, bedsid e 113 (H) 65 - 110 MG/DLRENAL FUNCTION PANEL Collection Time: 12/24/18 3:11 AMResult Value Ref Range Sodium 139 136 - 145 mmol/L Potassium 4.8 3.5 - 5.1 mmol/L Chloride 99 98 - 107 mmol/L CO2 36 (H) 21 - 32 mmol/L Anion gap 9 (L) 10 - 20 mmol/L Glucose 1 00 74 - 106 mg/dL BUN 9 7 - 18 mg/dL Creatinine 0.36 (L) 0.70 - 1.30 mg/dL GF R est AA >60 >60 ml/min/1.73m2 GFR est non-AA >60 >60 ml/min/1.73m2 Calcium 8.6 8.5 - 10.1 mg/dL Phosphorus 3.7 2.5 - 4.9 mg/dL Albumin 1.8 (L) 3.5 - 4.7 g/dLMAGNESIUM Collection Time: 12/24/18 3:11 AMResult Value Ref Range Magnesium 2.0 1.6 - 2.6 mg/dLGLUCOSE, POC Collection Time: 12/24/18 6:21 AMResult Value Ref Range Glucose, b edside 96 65 - 110 MG/DLURINALYSIS W/ RFLX MICROSCOPIC Collection Time: 12/24/18 9 :45 AMResult Value Ref Range Color YELLOW YEL Appearance CLEAR CLEAR Specific gravity 1.007 1.003 - 1.030 pH (UA) 8.0 4.6 - 8.0 Protein NEGATIVE NEG mg/dL Glucose NEGA TIVE NEG mg/dL Ketone NEGATIVE NEG mg/dL Bilirubin NEGATIVE NEG Blood NEGATIVE NEG Urobilinogen 0.2 0.2 - 1.0 EU/dL Nitrites NEGATIVE NEG Leukocyte Esterase NEGATIV E NEGAssessment/Plan:Active Problems: Pneumonia (11/08/2018) Sepsis due to und etermined organism (HCC) (12/12/2018) Acute Respiratory Failure with hypercapnia and Hypoxia/ improved Metabolic Acidosis - Resolving Sepsis -poa Metabolic Encephal opathy/ improved Aspiration Pneumonia Acute COPD exacerbation Dysphagia s/p surgical ly place,emt of peg Mentally challenged Seizure disorder Hyperparathyroid worsen ing pleural effusion bilaterallyS/p thoracentesis PLAN:Risk of deterioration: []Low []Moderate1. Fo r PEG replacment when medically clear2. IV fluids3.O2 NC/BIPAP4.off v Zosyn5. Pulm onary follow up6. ID follow up7. CT chest , bilateral Pleural effusion8. Restart officer captain medications via peg Covering for Admitting Physician: Oralia Frankel MD December 9:15 AM Name Value Range Interpretation Code Description Data Harriett rce(s) Supporting Document(s ) ID Date Data Source [id number] 12/24/2018 10:22:42 AM EDT [facility] ID Progress Note12/24/2018Patient is non verbal,unable to provide any historyWBC is pendingPt awaiting EGDAfebrileS/p left p igtail catheter insertion for pleural effusion 12/19/18- culture NGTDObjective:V itals:Patient Vitals for the past 24 hrs: BP Temp Pulse Resp SpO2 Llvxll93/11/19 0803 - - - - 97 % -12/24/18 0713 103/63 97.8 F (36.6 C) 84 18 96 % -12/24/18 0628 - - - - - 61.2 kg (135 lb)12/24/18 0432 113/74 97.8 F (36.6 C) 86 18 97 % -12/23/18 2 336 106/59 98.2 F (36.8 C) 87 18 97 % -12/23/18 2036 - - - - 97 % -12/23/18 19 48 107/71 97.9 F (36.6 C) 97 16 97 % -12/23/18 1530 92/64 97.8 F (36.6 C) 9 8 16 95 % -12/23/18 1441 - - - - 96 % -12/23/18 1254 - - - - 94 % -12/23/18 11 18 106/65 97.3 F (36.3 C) 98 18 90 % -Tmax: Temp (24hrs), Av.8 F (36.6 C), Mi n:97.3 F (36.3 C), Max:98.2 F(36.8 C)Physical Exam:General: Awake non verb al, cooperative, no distressMouth/Throat: Dry oral, mucosaNeck: Supple, symmetrical, t rachea midline, no adenopathyLungs: Decrease breath sounds at bases. +Heart: Regular rate and rhythm, S1, S2 normal, no murmurAbdomen: Soft, non-tender. Bowel sounds normal. No masses, No organomegaly.+feeding tubeBack: No CVA tenderness.Extremities: Extremities normal, atraumatic, no cyanosis or edema.Pulses: 2+ and symmetric all extremities.Skin: Skin color, texture, turgor normal. No rashes or lesionsCurrent Facility-Administered MedicationsMedication Dose Route Frequen cy predniSONE (DELTASONE) tablet 10 mg 10 mg Oral DAILY WITH LUNCH [START ON 12/27] predniSONE (DELTASONE) tablet 5 mg 5 mg Oral DAILY WITHLUNCH dextrose 5% inf usion 50 mL/hr IntraVENous CONTINUOUS haloperidol lactate (HALDOL) injection 2 mg 2 mg IntraVENous Q6H PRN acetaminophen (TYLENOL) solution 650 mg 650 mg Per NG tube Q4H PRN albuterol-ipratropium (DUO-NEB) 2.5 MG-0.5 MG/3 ML 3 mL Nebul ization Q4H PRN potassium, sodium phosphates (NEUTRA-PHOS) packet 1 Packet 1 Packet Oral QID acetylcysteine (MUCOMYST) 100 mg/mL (10 %) nebulizer solution 200 mg 2 mLNe bulization BID RT albuterol-ipratropium (DUO-NEB) 2.5 MG-0.5 MG/3 ML 3 mL Nebul ization Q6H RT bacitracin 500 unit/gram packet 1 Packet 1 Packet Topical BID p iperacillin-tazobactam (ZOSYN) 3.375 g in 0.9% sodium chloride (MBP/ADV) 100mL MBP 3.375 g IntraVENous Q8H budesonide (PULMICORT) 500 mcg/2 ml nebulizer suspe nsion 500 mcg NebulizationBID RT lamoTRIgine (LaMICtal) tablet 50 mg 50 mg Per G Tube BID valproic acid (as sodium salt) (DEPAKENE) 250 mg/5 mL (5 mL) oral solution 750mg 750 mg Per G Tube BID cinacalcet (SENSIPAR) tablet 60 mg 60 m g Oral DAILY pantoprazole (PROTONIX) granules for oral suspension 40 mg 40 m g Per G TubeACB heparin (porcine) injection 5,000 Units 5,000 Units SubCUTAneous Q1 2H sodium chloride (NS) flush 5-10 mL 5-10 mL IntraVENous PRNLabs:Recent Labs 09/1 12/23/1902WBC -- 17.1* --HGB -- 11.6* --PLT -- 266 --BUN 9 12 17CREA 0.36* 0.43* 0.33*Cultures:Lab ResultsComponent Value Date/Time Culture result: NO GROWTH AFTER 20 HOURS 12/23/2018 12:00 PM Culture result : NO GROWTH AFTER 19 HOURS 12/23/2018 11:40 AM Culture result: NO GROWTH 4 DAYS 09/2018 12:30 PM Culture result: NO GROWTH 2 DAYS 12/19/2018 12:30 PMRadiology:No res ults found.Assessment: Sepsis. Aspiration pneumonia. Acute respiratory failure wi th hypoxia and hypercapnia. Acute COPD exacerbation. Dysphagia. Atelectasis. Pleural effusion. Leukocytosis (pt on steriods) Plan:1. Continue IV zosyn2. Follow repeat blood cx and UA, UCx3. Follow cultures f/u CBCMahlet Henri, MDSeptemb er [id number] AM Name Value Range Interpretation Code Description Data Harriett rce(s) Supporting Document(s ) ID Date Data Source [id number] 12/24/2018 10:08:33 AM EDT [facility] Pt is more comfortable on NC oxygen.Non verbalExam: VSS, O2 sat 90%Abd: soft, NTNDA/pAspiration pneumonia- improvedEGD with J-tube extension when pulmonary status more stable Name Value Range Interpretation Code Description Data Harriett rce(s) Supporting Document(s ) ID Date Data Source [id number] 12/26/2018 11:46:24 AM EDT [facility] Name Value Range Interpretation Description Data Sup porting Code Source(s) Document(s ) Service comment [facility] Bacteria [facility] identified in [facility] specimen by Culture ID Date Data Source [id number] 12/24/2018 10:17:22 AM EDT [facility] Name Value Range Interpretation Description Data Sup porting Code Source(s) Document(s ) Color of Urine YEL [facility] Appearance of CLEAR [facility] Urine [facility] Specific gravity 1.007 1.003-1. [facility] - of Urine by 030 Good Refractometry [facility] pH of Urine by 8.0 4.6-8.0 [facility] - Test strip Good [facility] Protein NEG [facility] - [Mass/volume] in Good Urine by Test [facility] Glucose NEG [facility] - [Mass/volume] in Good Urine by [facility] Automated test Hospital strip Ketones NEG [facility] - [Presence] in Good Urine by Tao[facility] Automated test Hospital strip Bilirubin.total NEG [facility] - [Presence] in Good Urine [facility] Hemoglobin NEG [facility] - [Presence] in Good Urine by Test [facility] Urobilinogen 0.2 0.2-1.0 [facility] - [Presence] in EU/dL Good Urine by [facility] Automated test Hospital strip Nitrite NEG [facility] - [Presence] in Good Urine by [facility] Automated test Hospital strip Leukocyte NEG [facility] - esterase Good [Presence] in Taoist Urine by Hospital Automated test strip ID Date Data Source [id number] 12/24/2018 07:45:57 AM EDT [facility] Bedside and Verbal shift change report g iven to Rama Jaimes RN (oncomingnurse) by Leann Ryan RN(offgoing nurse). Re port given with SBAR, Kardex, Intake/Output, MAR and RecentResults. Name Value Range Interpretation Code Description Data Harriett rce(s) Supporting Document(s ) ID Date Data Source [id number] 12/24/2018 06:32:49 AM EDT [facility] - G ood [facility] Name Value Range Interpretation Description Data Sup porting Code Source(s) Document(s ) Glucose 96 MG/DL 65-110 [facility] - Good [Mass/volume] [facility] in Blood by Hospital Automated test strip ID Date Data Source [id number] 12/24/2018 05:24:19 AM EDT [facility] Name Value Range Interpretation Description Data Sup porting Code Source(s) Document(s ) Sodium 139 136-145 [facility] - Good [Moles/volume] mmol/L [facility] in Serum or Hospital Plasma Potassium 4.8 3.5-5.1 [facility] - Good [Moles/volume] mmol/L [facility] in Serum or Hospital Plasma Chloride 99 98-107 [facility] - Good [Moles/volume] mmol/L [facility] in Serum or Hospital Plasma Carbon 36 21-32 Above high normal [facility] - Good dioxide, total mmol/L [facility] [Moles/volume] Hospital in Serum or Plasma Anion gap in 9 mmol/L 10-20 Below low normal [facility] - Go od Serum or [facility] Plasma Hospital Glucose 100 74-106 [facility] - Good [Mass/volume] mg/dL [facility] in Serum or Hospital Plasma Urea nitrogen 9 mg/dL 7-18 [facility] - Good [Mass/volume] [facility] in Serum or Hospital Plasma Creatinine 0.36 0.70-1.3 Below low normal [facility] - Good [Mass/volume] mg/dL 0 [facility] in Serum or Hospital Plasma Glomerular >60 [facility] - Good filtration Taoist rate/1.73 sq M Hospital predicted among blacks [Volume Rate/Area] in Serum or Plasma by Creatinine-bas ed formula (MDRD) Glomerular >60 [facility] - Good filtration Tao[facility] rate/1.73 sq M Hospital predicted among non-blacks [Volume Rate/Area] in Serum or Plasma by Creatinine-bas ed formula (MDRD) Calcium 8.6 8.5-10.1 [facility] - Good [Mass/volume] mg/dL [facility] in Serum or Hospital Plasma Phosphate 3.7 2.5-4.9 [facility] - Good [Mass/volume] mg/dL [facility] in Serum or Hospital Plasma Albumin 1.8 g/dL 3.5-4.7 Below low normal [facility] - Good [Mass/volume] [facility] in Serum or Hospital Plasma by Bromocresol purple (BCP) dye binding method ID Date Data Source [id number] 12/24/2018 05:24:19 AM EDT [facility] Name Value Range Interpretation Description Data Sup porting Code Source(s) Document(s ) Magnesium 2.0 mg/dL 1.6-2.6 [facility] - Good [Mass/volume] [facility] in Serum or Hospital Plasma ID Date Data Source [id number] 12/24/2018 12:24:08 AM EDT [facility] Name Value Range Interpretation Description Data Sup porting Code Source(s) Document(s ) Glucose 113 MG/DL 65-110 Above high normal [facility] [Mass/volume] Tao[facility] in Blood by Hospital Automated test strip ID Date Data Source [id number] 12/23/2018 07:44:16 PM EDT [facility] Bedside and Verbal shift change report carol pham to Leann ryan (oncoming nurse) Rafael Saldana RN(offgoing nurse). Report giv en with SBAR, Kardex, Intake/Output, MAR and RecentResults. Name Value Range Interpretation Code Description Data Harriett rce(s) Supporting Document(s ) ID Date Data Source [id number] 12/23/2018 07:43:55 PM EDT [facility] Mitts and venodynes removed periodically Hands are warm and mobile Name Value Range Interpretation Code Description Data Harriett rce(s) Supporting Document(s ) ID Date Data Source [id number] 12/23/2018 06:50:14 PM EDT [facility] O2 sat 94-96% most of day desat briefly this am at times but returns to 94-97.Alert Occ moist cough Oral care and suction C ondom cath turned and repositionedq 2h Venodynes removed x 1 hr Green leg booti es intact HOB up Bolus fdgs viagravity tolerated Name Value Range Interpretation Code Description Data Harriett rce(s) Supporting Document(s ) ID Date Data Source [id number] 12/23/2018 06:14:11 PM EDT [facility] Name Value Range Interpretation Description Data Sup porting Code Source(s) Document(s ) Glucose 116 MG/DL 65-110 Above high normal [facility] [Mass/volume] Tao[facility] in Blood by Hospital Automated test strip ID Date Data Source [id number] 12/23/2018 12:13:49 PM EDT [facility] PULMONARY/ CCM- Consult NotePatient: Ivelisse nuel Fischbein Sex: male DOA: 12/12/2018Date of : 1 Age: 68 y.o. LOS: LOS: 11 daysHPI: kassie Carlin is a 68 y.o. 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 Authoriz ing Providerpantoprazole (PROTONIX) 40 mg granules for oral suspension 40 mg by Pe r G Tuberoute Daily (before breakfast). 11/28/18 Yes Mili Hills, DObudesoni de (PULMICORT) 0.5 mg/2 mL nbsp 2 mL by Nebulization route two (2) timesa day fo r 30 days. 11/27/18 12/27/18 Yes Mili Hills, DOmultivitamin (ONE A DAY) tabl et Take 1 Tab by mouth daily. Yes Provider,Historicalclorazepate (TRANXENE ) 3.75 mg tablet Take by mouth nightly. Yes Provider,Historicalalbuterol-ipratro pium (DUO-NEB) 2.5 mg-0.5 mg/3 ml nebu 3 mL by Nebulizationroute every six (6) hours as needed. Yes Provider, HistoricallamoTRIgine (LAMICTAL) 25 mg t ablet Take 50 mg by mouth two (2) times a day.Yes Provider, Historicalcinacalcet ( SENSIPAR) 30 mg tablet Take 60 mg by mouth daily. Yes Provider,Historicalvalproat e (DEPAKENE) 250 mg/5 mL syrup Take 750 mg by mouth two (2) times a day.Yes Provider, HistoricalNo Known AllergiesHistory reviewed. No pertinent surgical history.History re viewed. No pertinent family history.Social HistorySocioeconomic History Marital st atus: SINGLE Spouse name: Not on file Number of children: Not on file Years o f education: Not on file Highest education level: Not on fileTobacco Use Smoking s tatus: Never Smoker Smokeless tobacco: Never UsedSubstance and Sexual Activity Alcoh ol use: No Drug use: NoReview of SystemsPertinent items are noted in the History of Present Illness.Physical Exam:Current medications:Current Facilit y-Administered Medications: [START ON 12/24/2018] predniSONE (DELTASONE) tablet 10 mg, 10 mg, Oral, DAILYWITH LUNCH, Stella Hamilton MD dextrose 5% infusion, 50 mL/hr, IntraVENous, CONTINUOUS, Oralia Frankel MD,Last Rate: 50 mL/hr at 9 0900, 50 mL/hr at 12/22/18 0900 haloperidol lactate (HALDOL) injection 2 mg, 2 mg, IntraVENous, Q6H PRN,Stella Hamilton MD, 2 mg at 12/22/18 2306 ac etaminophen (TYLENOL) solution 650 mg, 650 mg, Per NG tube, Q4H PRN,Mili Hills DO, 650 mg at 12/19/18 1818 albuterol-ipratropium (DUO-NEB) 2.5 MG-0 .5 MG/3 ML, 3 mL, Nebulization, Q4HPRN, Mili Hills DO, 3 mL at 12/16/18 04 17 potassium, sodium phosphates (NEUTRA-PHOS) packet 1 Packet, 1 Packet, Oral,QID, Krystian Monae MD, 1 Packet at 12/23/18 1003 acetylcysteine (MUCOMYST ) 100 mg/mL (10 %) nebulizer solution 200 mg, 2 mL,Nebulization, BID RT, Shaylee Hills DO, 200 mg at 12/23/18 0757 albuterol-ipratropium (DUO-NEB) 2.5 MG-0 .5 MG/3 ML, 3 mL, Nebulization, Q6HRT, Mili Hills DO, 3 mL at 12/23/18 07 56 bacitracin 500 unit/gram packet 1 Packet, 1 Packet, Topical, BID, Eloisa Hills DO, 1 Packet at 12/23/18 1003 piperacillin-tazobactam (ZOSYN) 3.375 g in 0.9% sodium chloride (MBP/ADV) 100mL MBP, 3.375 g, IntraVENous, Q8H, Manuel Plunkett MD, Last Rate: 25 mL/hr at12/23/18 0428, 3.375 g at 12/23/18 0428 budesonide (P ULMICORT) 500 mcg/2 ml nebulizer suspension, 500 mcg,Nebulization, BID RT, Abdiel Plunkett MD, 500 mcg at 12/23/18 0756 lamoTRIgine (LaMICtal) tablet 50 mg, 50 mg, Per G Tube, BID, Van Plunkett MD, 50 mg at 12/23/18 1002 valproic acid (as sod ium salt) (DEPAKENE) 250 mg/5 mL (5 mL) oral ijfrntus562 mg, 750 mg, Per G Tube, BID, Van Plunkett MD, 750 mg at 12/23/18 1004 cinacalcet (SENSIPAR) tablet 60 mg, 60 mg, Oral, DAILY, Van Plunkett MD,60 mg at 12/23/18 1002 pantoprazole (PROTONIX) granules for oral suspension 40 mg, 40 mg, Per GTube, ACB, Van Plunkett MD, 40 m g at 12/23/18 1002 heparin (porcine) injection 5,000 Units, 5,000 Units, SubC UTAneous, Q12H,Van Plunkett MD, 5,000 Units at 12/22/18 2306 sodium chloride (NS) flush 5-10 mL, 5-10 mL, IntraVENous, PRN, Van Plunkett MDDataVisit VitalsBP 106/65 (BP 1 Location: Left arm, BP Patient Position: At rest;Head of bedelevated (C omment degrees))Pulse 98Temp 97.3 F (36.3 C)Resp 18Ht 5' 2" (1.575 m)Wt 61.7 kg (1 36 lb)SpO2 90%BMI 24.87 kg/m Intake and Output:Date 12/22/18699 - 12/23/18 065 9 12/23/18 07 - 12/24/18 0659Shift 4821-1839 1764-3448 24 Hour Total 0700-1 859 1219-4905 24 Hour TotalINTAKENG/GT 208 755 3684 Water Flush Volume (mL) (PEG/G astrostomy Tube 12/12/18) 340 170 510 Medication Volume (PEG/Gastrostomy Tube 12/12/18) 150 150 Intake (ml) (PEG/Gastrostomy Tube 12/12/18) 480 480 960Shift Total(mL/kg) 970(15.6) 650(10.4) 1620(26)OUTPUTUrine(mL/kg/hr) 2225(3) 2 225(1.5) Urine Voided 2225 2225Drains 50 50 100 Output (ml) (Pleural Catheter/Drain 12/19/18 Left) 50 50 100Stool Stool Occurrence(s) 2 x 2 xShift Total(mL/kg) 2275(36.5) 50(0.8) 2325(37.3)NET -1305 600 -705Weight (kg) 62.3 62.3 62.3 61.7 61.7 61.7Pulse OX:SpO2 Readings from Last 6 Encounters:12/23/18 90%11/27/18 91%09/25 96%@LASTSAO2(6)@PHYSICAL EXAM:General: Lethargic,responding.Head: Normocephal ic, without obvious abnormality, atraumatic.Eyes: Conjunctivae clear, a nicteric sclerae. Pupils are equalNose: Nares normal. No drainage or sinus tende rness.Throat: Lips, mucosa, and tongue normal. No ThrushNeck: Supple, symmetr ical, no adenopathy, thyroid: non tender no carotid bruit and no JVD.Back: Symmet rodger, No CVA tenderness.Lungs: Scattered rhonchi,Chest wall: No tenderness or de formity. No Accessory muscle use.Heart: Regular rate and rhythm, no murmur, rub or gallop.Abdomen: Soft, non-tender. Not distended. Bowel sounds normal. No mass esExtremities: Extremities normal, atraumatic, No cyanosis. No edema. No c lubbingSkin: Texture, turgor normal. No rashes or lesions. Not JaundicedLymph n odes: Cervical, supraclavicular normal.Neurologic: Lethargic.Most recent labs:Recent Labs WBC 17.1*HGB 11.6*HCT 35.0*PLT 266Recent Labs 12/22/1902NA 143 137 141K 4.4 4.6 4.5CL 101 98 100CO2 35* 35* 36*GLU 101 113* 142*BUN 12 17 22*CREA 0.43* 0.33* 0.45*CA 8.2* 8.0* 8.2*MG 2.1 2.1 2 .1PHOS 4.1 3.6 3.9ALB 2.0* 1.9* 2.1*No results for input(s): PH, PCO2, PO2, HCO 3, FIO2 in the last 72 hours.ABG:No results for input(s): PH, PCO2, PO2, HCO3, FIO2 in the last 72 hours.Cultures:No results found for: [employer] GroupESLab ResultsComponent Valu e Date/Time Culture result: NO GROWTH 3 DAYS 12/19/2018 12:30 PM Culture result: NO G ROWTH 2 DAYS 12/19/2018 12:30 PM Culture result: NO GROWTH 1 DAY 12/12/2018 08:04 PM Culture result: NO GROWTH 5 DAYS 12/12/2018 07:40 PM Culture result: NO G ROWTH 5 DAYS 12/12/2018 07:40 PM Culture result: NO GROWTH 2 DAYS 11/20/2018 09:0 0 AM Culture result: NO GROWTH 5 DAYS 11/07/2018 08:10 PM Culture result: NO G ROWTH 5 DAYS 11/07/2018 08:00 PMImages:Cta Chest W Or W Wo ContResult Date: 11/09/19 19Examination: CTA Chest ? PE angiography History: Hypoxia; rule out pneumoniavers us pulmonary embolism Priors: None Technique: Low-dose, multiplanar,helica l CTA chest was performed with bolus IV injection from lung apices tobases. 3D- reformatted images were obtained and reviewed on a dedicated viewingworkstation and di rectly supervised. Contrast: A total of 71 mL of Isovue-370was administered intravenou sly for this procedure. Findings: No evidence ofpulmonary embolism is seen. T here is decreased size of the right hemithorax fromchronic scarring and retr action with mediastinal shift left to right.Additional area of consolidation i s seen in the right lower lobe and suggestssuperimposed pneumonia with subs egmental atelectasis. Subsegmental atelectasisis also noted in the left jorge g base, with pleural parenchymal scarring. Lowlung volumes are seen. No pneumothora x seen. Aorta normal in caliber withoutaneurysm or dissection. Mediastin um no adenopathy. Mediastinal shift is seen inthe left and right as a result of chr onic changes in the right hemithorax.Heart shows no chamber enlargement or pericard ial effusion. No acute fracturesseen in the bony thorax, sternum, manubrium and rib cage. Multiple compressiondeformities are seen in the mid and lower thoracic spine , with superimposedspondyloarthropathy. Cannot exclude acute fracture.Impression : No evidence of pulmonary embolism Right lower lobe pneumoniasuggested. Incidenta l scarring and retraction in the right hemithorax fromremote/chronic inflammato ry disease and/or trauma. Bibasilar subsegmentalatelectasis. Report Electron ically Signed By: Pawel Zafar M.D. -11/08/2018 12:40 AMXr Chest PortResult D ate: 11/07/2018XR CHEST PORT CLINICAL INDICATION PROVIDED:. "sob." COMPARISON: . 09/26/2015.FINDINGS:. The pericardial/cardiac silhouette is enlarg ed in the transversedimension. There is no pulmonary vascular congestion or interst itial edema.Linear density in the left lung base and faint densities in the right mi d tolower lung likely represent atelectasis. There is no lobar consolidation oreffusi on. There is no pneumothorax.IMPRESSION:. Bilateral lower lung atelectasis. No donna dence of consolidation oreffusion.Assessment/PlanActive Problem s: Pneumonia (11/08/2018) Sepsis due to undetermined organism (HCC) (12/12/2018) Acute resp failure combined, pneumonia acute copd exacerbationPLAN,Monitoring,bipap p rn for resp distressChest percussionss/p left pig tail catheterIvabx as per id,Iv ster oids taperbipap prn and at night.NebS/p peg,feeding started.D/w nursing staff,Leander Hamilton, MARICELept2018The billing code submitted in association with this evaluation also includes thetime to review patient's prior records, communicate wit h the physician team,obtain corroborating data, and discuss the risk and benefits of the proposedmanagement plan with the patient and their family >30 minutes. Name Value Range Interpretation Code Description Data Harriett rce(s) Supporting Document(s ) ID Date Data Source [id number] 12/28/2018 07:02:55 AM EDT [facility] Name Value Range Interpretation Description Data Sup porting Code Source(s) Document(s ) Service comment [facility] Bacteria [facility] - Good identified in [facility] specimen by Culture ID Date Data Source [id number] 12/23/2018 12:35:21 PM EDT [facility] Name Value Range Interpretation Description Data Sup porting Code Source(s) Document(s ) Glucose 85 MG/DL 65-110 [facility] - Good [Mass/volume] [facility] in Blood by Hospital Automated test strip ID Date Data Source [id number] 12/28/2018 07:02:53 AM EDT [facility] Name Value Range Interpretation Description Data Sup porting Code Source(s) Document(s ) Service comment [facility] Bacteria [facility] - Good identified in [facility] specimen by Culture ID Date Data Source [id number] 12/23/2018 11:35:20 AM EDT [facility] Progress NOTENAME: Evelio FischbeinDOB : 1950MRN: [id number]/Time: 12/23/2018 9:15 AMHISTORY OF PRESENT ILLN ESS:Evelio is a 68 y.o. male who presents from [facility] with medical history ofDysphag ia with recent admission s/p surgical peg placement on 11/17/18, severeintellectual disability, Chronic respiratory failure, hyperparathyroidunspecified, personal h/ o pulmonary embolus, anxiety disorder, kyphosis andschizophrenia.The patient is unable to provide a history due to his mental disability. Thenursing home staf f reporting pt had a cough, fever to 103 F and hypoxia. ChestXR showed suspicion f or a Pneumonia. Pt was given Iv Cefepime, Vancomycin andSolu- medrol. Pt was later found minimally responsive and was sent to the ED. In the ED, chest xr showed some streaky changes at the lung bases. ABG showedpH 7.40/55/56/34/ O2 SAT 90 % on 2 LPM and Lactic Acid was elevated to 5.5. Thepatient was given Iv Zosyn, Solu-Medr ol, nebulizer and IVF.Repeat lactic acid was still elevated at 5.3.The patient was ad mitted with enxounter diagnosis of Sepsis due to unspecifiedorganism, Pnermonia, unspe cified and COPD exacerbation.The patient was seen and examined at bedside he is less lethargic, nonverbbal.He is coughing. 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 No pertinent surgical history. Social HistoryTobacco Use Smoking status: Never Smoker Smokeless tobacco: Never U sedSubstance Use Topics Alcohol use: NoHistory reviewed. No pertinent family history.No Known AllergiesPrior to Admission medicationsMedication Sig Start Date End Date Taking? Authorizing Providerpantoprazole (PROTONIX) 40 mg gr anules for oral suspension 40 mg by Per G Tuberoute Daily (before breakfast). 11/28 Yes Mili Hills DObudesonide (PULMICORT) 0.5 mg/2 mL nbsp 2 mL by Neb ulization route two (2) timesa day for 30 days. 11/27/18 12/27/18 Yes Cesar Hills DOmultivitamin (ONE A DAY) tablet Take 1 Tab by mouth daily. Yes Provider,Histo ricalclorazepate (TRANXENE) 3.75 mg tablet Take by mouth nightly. Yes Provider,H istoricalalbuterol-ipratropium (DUO-NEB) 2.5 mg-0.5 mg/3 ml nebu 3 mL by Nebulization route every six (6) hours as needed. Yes Provider, HistoricallamoTRIgine (LAMICTA L) 25 mg tablet Take 50 mg by mouth two (2) times a day.Yes Provider, Historicalcina calcet (SENSIPAR) 30 mg tablet Take 60 mg by mouth daily. Yes Provider,Historicalva lproate (DEPAKENE) 250 mg/5 mL syrup Take 750 mg by mouth two (2) times a day.Yes Prov ider, HistoricalREVIEW OF SYSTEMS: [x] Unable to obtain ROS due to patient factors.Obj ective:VITALS:Visit VitalsBP 106/65 (BP 1 Location: Left arm, BP Patient Position: At rest;Head of bedelevated (Comment degrees))Pulse 98Temp 97.3 F (36.3 C)R david 18Ht 5' 2" (1.575 m)Wt 61.7 kg (136 lb)SpO2 90%BMI 24.87 kg/m PHYSICAL EXAM: General: Alert, , no distress, appears stated age.Head: Normocephalic, withou t obvious abnormality, atraumatic.Eyes: Conjunctivae clear, anicteric sclerae. Pupils are equalThroat: Lips, mucosa, and tongue normal. No ThrushNeck: Supple, symmetrical, no adenopathy, no carotid bruit and no JVD.Back: Symmetric, No CVA tenderness.Lungs: Bilateral air entry.. Decreased breath sounds RUL. N o Wheezing orRhonchi. No rales.Chest wall: No Accessory muscle use.Heart: Regular rate and rhythm, no murmur, or rubAbdomen: Positive peg, non-tender. Not distended . Bowel sounds normal. NomassesExtremities: Extremities normal, atraumatic, No cyano sis. No edema. No clubbingSkin: Warm and dry. No rashes or lesions. Not Jaundice dLymph nodes: Cervical, supraclavicular normal.Psych: Not anxious or agitated.N eurologic: EOMs intact. No facial asymmetry. No aphasia or slurred speech.Generalized weakness, wheel chair bound., Alert and Awake, nonverbal. .LAB DATA REVIEWED:Rec ent Results (from the past 24 hour(s))GLUCOSE, POC Collection Time: 11:59 AMResult Value Ref Range Glucose, bedside 86 65 - 110 MG/DLGLUCOS E, POC Collection Time: 12/22/18 5:54 PMResult Value Ref Range Glucose, bedsid e 109 65 - 110 MG/DLGLUCOSE, POC Collection Time: 12/22/18 11:36 PMResult Value Ref Range Glucose, bedside 132 (H) 65 - 110 MG/DLRENAL FUNCTION PANEL Collection Patria e: 12/23/18 3:38 AMResult Value Ref Range Sodium 143 136 - 145 mmol/L Potassium 4. 4 3.5 - 5.1 mmol/L Chloride 101 98 - 107 mmol/L CO2 35 (H) 21 - 32 mmol/L Anion g ap 12 10 - 20 mmol/L Glucose 101 74 - 106 mg/dL BUN 12 7 - 18 mg/dL Creatinine 0.4 3 (L) 0.70 - 1.30 mg/dL GFR est AA >60 >60 ml/min/1.73m2 GFR est non-AA >60 >60 ml/ min/1.73m2 Calcium 8.2 (L) 8.5 - 10.1 mg/dL Phosphorus 4.1 2.5 - 4.9 mg/dL Albumin 2 .0 (L) 3.5 - 4.7 g/dLMAGNESIUM Collection Time: 12/23/18 3:38 AMResult Value Ref Range Magnesium 2.1 1.6 - 2.6 mg/dLCBC W/O DIFF Collection Time: 12/23/18 3:38 AMR esult Value Ref Range WBC 17.1 (H) 4.8 - 10.6 K/uL RBC 3.48 (L) 4.70 - 6.00 M/uL HGB 1 1.6 (L) 14.0 - 18.0 g/dL HCT 35.0 (L) 42.0 - 52.0 % MCV 100.6 (H) 81.0 - 94.0 FL MCH 33.3 27.0 - 35.0 PG MCHC 33.1 30.7 - 37.3 g/dL RDW 17.9 (H) 11.5 - 14.0 % PLATELET 266 130 - 400 K/uL MPV 9.7 9.2 - 11.8 FLAssessment/Plan:Active Problems: Pneu monia (11/08/2018) Sepsis due to undetermined organism (HCC) (12/12/2018) Acute Respira tory Failure with hypercapnia and Hypoxia/ improved Metabolic Acidosis - Resolving Sepsis -poa Metabolic Encephalopathy/ improved Aspiration Pneumonia Acute COPD exacerbation Dysphagia s/p surgically place,emt of peg Mentally challenged Sei zure disorder Hyperparathyroid worsening pleural effusion bilaterallyS/p thoracentesis PLAN:Risk of deterioration: []Low []Moderate1. Fo r PEG replacment when medically clear2. IV fluids3.O2 NC/BIPAP4.off v Zosyn5. Pulm onary follow up6. ID follow up7. CT chest , bilateral Pleural effusion8. Restart officer captain medications via peg Covering for Admitting Physician: Oralia Frankel MD December 9:15 AM Name Value Range Interpretation Code Description Data Harriett rce(s) Supporting Document(s ) ID Date Data Source [id number] 12/23/2018 11:18:52 AM EDT [facility] ID Progress Note12/23/2018Patient is non verbal,unable to provide any historyPt wbc count up to 17KPt awaiting EGDAfebrileS/ p left pigtail catheter insertion for pleural effusion 12/19/18- culture NGTDObjective:V itals:Patient Vitals for the past 24 hrs: BP Temp Pulse Resp SpO2 Asvqff08/10/19 0710 100/68 97 F (36.1 C) 81 18 90 % -12/23/18 0704 - - - - - 61.7 kg (136 lb)12/23/18 0446 111/61 97.8 F (36.6 C) 88 20 94 % -12/22/18 2340 96/70 97.8 F (36.6 C) 8 1 20 97 % -12/22/18 2253 - - - - 96 % -12/22/182005 - - - - 96 % -12/22/18 - - - - 96 % -12/22/181953 113/82 97.4 F (36.3 C) 83 20 96 % -12/22/18 1551 101/ 60 98.3 F (36.8 C) 72 20 96 % -12/22/18 1131 109/60 97.2 F (36.2 C) 61 20 97 % -Tmax: Temp (24hrs), Av.6 F (36.4 C), Min:97 F (36.1 C), Max:98.3 F(36.8 C )Physical Exam:General: Awake non verbal, cooperative, no distressMouth/Throat: Dr jamison wilkins, mucosaNeck: Supple, symmetrical, trachea midline, no adenopathyLungs: D ecrease breath sounds at bases. +Heart: Regular rate and rhythm, S1, S2 normal, no murmurAbdomen: Soft, non-tender. Bowel sounds normal. No masses, No organomega ly.+feeding tubeBack: No CVA tenderness.Extremities: Extremities norm al, atraumatic, no cyanosis or edema.Pulses: 2+ and symmetric all extremities.Skin: S kin color, texture, turgor normal. No rashes or lesionsCurrent Facility-Administered MedicationsMedication Dose Route Frequency dextrose 5% infusion 50 mL/hr IntraVENo us CONTINUOUS methylPREDNISolone (PF) (SOLU-MEDROL) injection 20 mg 20 mg Int raVENous PCL haloperidol lactate (HALDOL) injection 2 mg 2 mg IntraVENous Q6H PRN acetaminophen (TYLENOL) solution 650 mg 650 mg Per NG tube Q4H PRN albuterol-ip ratropium (DUO-NEB) 2.5 MG-0.5 MG/3 ML 3 mL Nebulization Q4H PRN potassium, sodium phosphates (NEUTRA-PHOS) packet 1 Packet 1 Packet Oral QID acetylcysteine (MUCOMYS T) 100 mg/mL (10 %) nebulizer solution 200 mg 2 mLNebulization BID RT albuterol-ipra tropium (DUO-NEB) 2.5 MG-0.5 MG/3 ML 3 mL Nebulization Q6H RT bacitracin 500 unit /gram packet 1 Packet 1 Packet Topical BID piperacillin-tazobactam (ZOSYN) 3.375 g in 0.9% sodium chloride (MBP/ADV) 100mL MBP 3.375 g IntraVENous Q8H budesonide (PUL MICORT) 500 mcg/2 ml nebulizer suspension 500 mcg NebulizationBID RT lamoTRIgine (LaMICtal) tablet 50 mg 50 mg Per G Tube BID valproic acid (as sodium salt) (DEPAKEN E) 250 mg/5 mL (5 mL) oral solution 750mg 750 mg Per G Tube BID cinacalcet (SENSI PAR) tablet 60 mg 60 mg Oral DAILY pantoprazole (PROTONIX) granules for ora l suspension 40 mg 40 mg Per G TubeACB heparin (porcine) injection 5,000 Units 5,000 Units SubCUTAneous Q12H sodium chloride (NS) flush 5-10 mL 5-10 mL Int raVENous PRNLabs:Recent Labs 12/22/1902WBC 17.1* -- --HGB 11.6* -- --PLT 266 -- --BUN 12 17 22*CREA 0.43* 0.33* 0.45*Cultures:Lab ResultsComponent Value Date/Time Culture result: NO GROWTH 3 DAYS 12/19/2018 12:3 0 PM Culture result: NO GROWTH 2 DAYS 12/19/2018 12:30 PM Culture result: NO G ROWTH 1 DAY 12/12/2018 08:04 PMRadiology:No results found.Assessment: Sepsis. Aspi ration pneumonia. Acute respiratory failure with hypoxia and hypercapnia. Acute WINE MASTER D exacerbation. Dysphagia. Atelectasis. Pleural effusion. Leukocytosis Plan: 1. Continue IV zosyn2. Repeat blood cx and UA, UCx3. Follow cultures.Monica Gomez, MARICELeptember [id number] AM Name Value Range Interpretation Code Description Data Harriett rce(s) Supporting Document(s ) ID Date Data Source [id number] 12/23/2018 09:38:28 AM EDT [facility] GIConsent is still pending for EGD with conversion of g- tube to J-tubeIn addition, his 02 sat on 6 liters (with good tracin g) is in the 80s (RNinformed)Will therefore defer procedure today and re-evaluate to oneal- will stillattempt to get consent. Name Value Range Interpretation Code Description Data [facility] rce(s) Supporting Document(s ) ID Date Data Source [id number] 12/23/2018 07:46:58 AM EDT [facility] Bedside and Verbal shift change report g iven to Wes Saldana RN (oncomingnurse) by Leann Ryan RN(offgoing nurse). Re port given with SBAR, Kardex, Intake/Output, MAR and RecentResults. Name Value Range Interpretation Code Description Data [facility] Supporting Document(s ) ID Date Data Source [id number] 12/23/2018 06:39:17 AM EDT [facility] TRANSFER - IN REPORT:Verbal report recei nathaly from Leann PITTS on Evelio Carlin being received from[address] [place] [address] for ordered procedureReport consisted of patient's Situation, Background, Assessment andRec ommendations(SBAR).Information from the following report(s) SBAR and MAR was rev iewed with thereceiving nurse.Opportunity for questions and clarification was provided .Assessment completed upon patient's arrival to unit and care assumed. Name Value Range Interpretation Code Description Data [facility] Supporting Document(s ) ID Date Data Source [id number] 12/23/2018 05:15:19 AM EDT [facility] Problem: Pneumonia: Day 1Goal: Off Pathw ay (Use only if patient is Off Pathway)Outcome: Progressing Towards Goa lProblem: Non-Violent RestraintsGoal: *No harm/injury to patient while restraints in useOutcome: Progressing Towards GoalGoal: *Patient's dignity will be maintainedOut come: Progressing Towards GoalGoal: Non-violent Restaints:Standard Intervent ionsOutcome: Progressing Towards GoalGoal: Non-violent Restraints:Patient Intervent ionsOutcome: Progressing Towards Goal Name Value Range Interpretation Code Description Data [facility] rce(s) Supporting Document(s ) ID Date Data Source [id number] 12/23/2018 09:19:36 AM EDT [facility] Name Value Range Interpretation Description Data Sup porting Code Source(s) Document(s ) Leukocytes 17.1 4.8-10.6 Above high normal [facility] - [#/volume] in K/uL [facility] Blood by [facility] Erythrocytes 3.48 4.70-6.0 Below low normal [facility] - [#/volume] in M/uL 0 [facility] Hemoglobin 11.6 14.0-18. Below low normal [facility] - [Mass/volume] in g/dL 0 Good Blood [facility] Hematocrit 35.0 % 42.0-52. Below low normal [facility] - [Volume 0 Good Fraction] of [facility] Blood by Hospital Automated count Erythrocyte mean 100.6 FL 81.0-94. Above high normal [facility] - corpuscular 0 Good volume [Entitic Taoist volume] by Hospital Automated count Erythrocyte mean 33.3 PG 27.0-35. [facility] - corpuscular 0 Good hemoglobin [facility] [Entitic mass] Hospital by Automated count Erythrocyte mean 33.1 30.7-37. [facility] - corpuscular g/dL 3 Good hemoglobin [facility] [Mass/volume] by Automated count Erythrocyte 17.9 % 11.5-14. Above high normal [facility] - distribution 0 Good width [Ratio] by [facility] Platelets 266 K/uL 130-400 [facility] - [#/volume] in Good Blood by [facility] Automated count [facility] Platelet mean 9.7 FL 9.2-11.8 [facility] - volume [Entitic Good volume] in Blood [facility] by Automated Hospital count ID Date Data Source [id number] 12/23/2018 05:40:40 AM EDT [facility] - [facility] Name Value Range Interpretation Description Data Sup porting Code Source(s) Document(s ) Magnesium 2.1 mg/dL 1.6-2.6 [facility] - Good [Mass/volume] [facility] in Serum or Hospital Plasma ID Date Data Source [id number] 12/23/2018 05:40:40 AM EDT [facility] - [facility] Name Value Range Interpretation Description Data Sup porting Code Source(s) Document(s ) Sodium 143 136-145 [facility] - Good [Moles/volume] mmol/L [facility] in Serum or Hospital Plasma Potassium 4.4 3.5-5.1 [facility] - Good [Moles/volume] mmol/L [facility] in Serum or Hospital Plasma Chloride 101 98-107 [facility] - Good [Moles/volume] mmol/L [facility] in Serum or Hospital Plasma Carbon 35 21-32 Above high normal [facility] - Good dioxide, total mmol/L [facility] [Moles/volume] Hospital in Serum or Plasma Anion gap in 12 10-20 [facility] - Good Serum or mmol/L [facility] Plasma Hospital Glucose 101 74-106 [facility] - Good [Mass/volume] mg/dL [facility] in Serum or Hospital Plasma Urea nitrogen 12 mg/dL 7-18 [facility] - Good [Mass/volume] [facility] in Serum or Hospital Plasma Creatinine 0.43 0.70-1.3 Below low normal [facility] - Good [Mass/volume] mg/dL 0 [facility] in Serum or Hospital Plasma Glomerular >60 [facility] - Good filtration [facility] rate/1.73 sq M Hospital predicted among blacks [Volume Rate/Area] in Serum or Plasma by Creatinine-bas ed formula (MDRD) Glomerular >60 [facility] - Good filtration [facility] rate/1.73 sq M Hospital predicted among non-blacks [Volume Rate/Area] in Serum or Plasma by Creatinine-bas ed formula (MDRD) Calcium 8.2 8.5-10.1 Below low normal [facility] - Good [Mass/volume] mg/dL [facility] in Serum or Hospital Plasma Phosphate 4.1 2.5-4.9 [facility] - Good [Mass/volume] mg/dL [facility] in Serum or Hospital Plasma Albumin 2.0 g/dL 3.5-4.7 Below low normal [facility] - Good [Mass/volume] [facility] in Serum or Hospital Plasma by Bromocresol purple (BCP) dye binding method ID Date Data Source [id number] 12/23/2018 02:06:03 AM EDT [facility] - Good [facility] Problem: Pneumonia: Day 1Goal: Off Pathw ay (Use only if patient is Off Pathway)Outcome: Progressing Towards Goa l Name Value Range Interpretation Code Description Data Harriett rce(s) Supporting Document(s ) ID Date Data Source [id number] 12/23/2018 12:20:16 AM EDT [facility] - [facility] Name Value Range Interpretation Description Data Sup porting Code Source(s) Document(s ) Glucose 132 MG/DL 65-110 Above high normal [facility] [Mass/volume] Taoist in Blood by Hospital Automated test strip ID Date Data Source [id number] 12/22/2018 10:51:58 PM EDT [facility] - [facility] Progress NoteMID-[facility] ,P.C.Krystian Monae MD., F.C.C.P.Stella Hamilton MD., F.C.C.P. [address] [place] [id number] [place] [address] [phone]: Evelio Carlin Sex: male DOA: 12/12/2018Da te of : 1950 Age: 68 y.o. LOS: LOS: 10 daysSubjective:Mr. Maximiliano mata is a 68 y.o. year old male who is being seen for ACUTE RESPIRATORYFAILURE , ASP PNEUMONIA , ATELECTASIS AND LEFT PLEURAL CATH . HE LOOKS MORE AWAKE AN D COMFORTABLE , AC , RESPIRATORY DISTRESS IS LESSOncology NASAL CANNULA ..Object britni:Vital Signs:Patient Vitals for the past 24 hrs: BP Temp Pulse Resp SpO2 [id number] - - - - 96 % -12/22/181999 - - - - 96 % -12/22/18 195 113/82 97.4 F (36 .3 C) 83 20 96 % -12/22/18 1551 101/60 98.3 F (36.8 C) 72 20 96 % -12/22/18 1131 10 97.2 F (36.2 C) 61 20 97 % -12/22/18 0948 - - - - (!) 72 % -12/22/18 0836 - - - - 92 % -12/22/18 0719 (!) 124/97 97.2 F (36.2 C) (!) 54 20 90 % -12/22/18 06 - - - - - 62.3 kg (137 lb 6.4 oz)12/22/18 0402 108/63 97.1 F (36.2 C) (!) 53 22 99 % -12/22/18 0124 - - - - 100 % -12/21/18 2306 109/55 97 F (36.1 C) 62 18 100 % -Pulse OX:SpO2 Readings from Last 6 Encounters:12/22/18 96%11/27/18 91%09/25 96%@LASTSAO2(6)@Physical Exam:OPENS EYES AND LOOKS AT EXAMINER , COMFROTABLE General: Alert, cooperative, no distress, appears stated age. Head: Normocephalic, without obvious abnormality, atraumatic. Eyes : Conjunctivae/corneas clear. PERRL, EOMs intact. Nose: Nares normal. No drainage or sinus tenderness Throat: Lips, mucosa, and tongue jazzmine l Neck: Supple, symmetrical, trachea midline, no adenopathy,thyroid: no enlargement/tenderness/nodules, no carotid bruit and no JVD. Elham ngs: AIR EXCHANGE IS BETTER , RALES DECREASED R L L AND L L L, AIR ENTRY IS BETTER to auscultation bilaterally. Chest Wall: No tenderness or deformity .LEFT CATH LITTLE DRAINAGE . Heart: Regular rate and rhythm, S1, S2 normal, no murmur, click,rub or gallop. Abdomen: Soft, non-tender. Bowel soun ds normal. No masses, No organomegaly. Extremities: Extremities normal, atrau matic, no cyanosis or edema. Pulses: 4+ bilaterally. Skin: Ski n color, texture, turgor normal. No rashes or lesions. Neurologic: CNII-XII intact. No focal motor or sensory deficit.Intake and Output:Last three shifts: 12/21 0701 - 12/22 1900In: 2960 [I.V.:200]Out: 2925 [Urine:2775; Drains:150]Lab Results:Rece nt Results (from the past 24 hour(s))GLUCOSE, POC Collection Time: 12/22/18 12:04 AMRe sult Value Ref Range Glucose, bedside 138 (H) 65 - 110 MG/DLRENAL FUNCTION PANEL Colle ction Time: 12/22/18 3:24 AMResult Value Ref Range Sodium 137 136 - 145 mmol/L Potass ium 4.6 3.5 - 5.1 mmol/L Chloride 98 98 - 107 mmol/L CO2 35 (H) 21 - 32 mmol/L Anion g ap 8 (L) 10 - 20 mmol/L Glucose 113 (H) 74 - 106 mg/dL BUN 17 7 - 18 mg/dL Creatinine 0.33 (L) 0.70 - 1.30 mg/dL GFR est AA >60 >60 ml/min/1.73m2 GFR est non-AA >60 >60 ml/min/1.73m2 Calcium 8.0 (L) 8.5 - 10.1 mg/dL Phosphorus 3.6 2.5 - 4.9 mg/dL Alb umin 1.9 (L) 3.5 - 4.7 g/dLMAGNESIUM Collection Time: 12/22/18 3:24 AMResult Value Ref Range Magnesium 2.1 1.6 - 2.6 mg/dLGLUCOSE, POC Collection Time: 12/22 6:25 AMResult Value Ref Range Glucose, bedside 73 65 - 110 MG/DLGLUCOSE, POC Co llection Time: 12/22/18 11:59 AMResult Value Ref Range Glucose, bedside 86 65 - 110 M G/DLGLUCOSE, POC Collection Time: 12/22/18 5:54 PMResult Value Ref Range Glucose, b edside 109 65 - 110 MG/DLABG:No results for input(s): PH, PCO2, PO2, HCO3, FIO2 in t he last 72 hours.Recent Glucose Results:Lab ResultsComponent Value Date/Time GLU 113 (H) 12/22/2018 03:24 AM GLUCPOC 109 12/22/2018 05:54 PM GLUCPOC 86 9 11:59 AM GLUCPOC 73 12/22/2018 06:25 AM@[email or web address] icr Results Procedure Component Value Units Date/Time CULTURE, BODY FLUID W GRAM STA IN [[id number]] Collected: 12/19/18 1230 Order Status: Completed Specimen: Left Updated: 12/22/18 110 Special Requests: NO SPECIAL REQUESTS GRAM STAIN FEW WBC' S NO ORGANISMS SEEN Culture result: NO GROWTH 3 DAYS CULTURE, ANAEROBIC [[id number]] Collected: 12/19/18 1230 Order Status: Completed Specimen: Thoracentesis Updat ed: 12/21/18 1144 Special Requests: NO SPECIAL REQUESTS Culture result: NO HAIDER WTH 2 DAYS CULTURE, BLOOD [[id number]] Collected: 12/12/181939 Order Status: Completed Specimen: Blood Updated: 12/17/18642 Special Requests: NO SPEC IAL REQUESTS Culture result: NO GROWTH 5 DAYS CULTURE, BLOOD [[id number]] Collecte d: 12/12/181939 Order Status: Completed Specimen: Blood Updated: 12/17/18642 Special Requests: NO SPECIAL REQUESTS Culture result: NO GROWTH 5 DAYS CULTURE , URINE [[id number]] Collected: 12/12/182003 Order Status: Completed Specimen: Urin e Updated: 12/14/18913 Special Requests: NO SPECIAL REQUESTS Culture result: NO GROWTH 1 DAY CULTURE, URINE [[id number]] Collected: 12/12/181929 Order Status: Canceled Specimen: Cath UrineImages:[email or web address] Chest Sngl VResult Date: 11/25/2018AP portable film of the chest clinical indication pneumonia Study is compared toprevious examination of November 22, 2018. Study demonstrates a le ft pleuraleffusion as well as infiltrate at the left base. This was present on previ ousstudy. There has been interval development of a small right pleural effusionwith li near streaking at the right base this may represent infiltrate oratelectasis. Hear t size difficult to evaluate.IMPRESSION: Infiltrate left base with pleural effusi on, right pleural effusionwith streaking at right lower lung field which may represe nt infiltrate oratelectasisCt Chest Wo ContResult Date: 12/18/2018Referring Physi chaya: KRYSTIAN MONAE Patient Name: EVELIO CARLIN THIS IS AFINAL REPORT FROM [facility] DATE OF SERVICE: 2018-12-18 01:22:40 IMAGES:555 EXAM: CT CHEST WO CO NTRAST HISTORY: .. Right lower lobe atelectasis..TECHNIQUE: Helical axial im aging from the thoracic inlet through the adrenalglands without contrast. Sagittal and coronal reconstructions were obtained.COMPARISON: CT chest without co ntrast of 12/13/2018. FINDINGS: .. Evaluationremains limited due to lack of IV contrast and patient positioning. The imagedthyroid gland remains atrophic. Th e aorta remains normal in caliber.Atherosclerotic calcifications a re again seen in the aorta. There is againcardiomediastinal shift towards the right. The heart remains normal in size andno pericardial effusion is noted. No obvious lymphadenopathy seen on thisunenhanced scan. No pneumothorax is noted. Since the prior exam there is beenincrease in bilateral pleural effusi ons with associated consolidations. Acalcified granuloma is again seen in th e right lower lobe. The imaged upperabdomen does not demonstrate any gross acute maggy nges. Osteopenia is again noted.Degenerative changes again seen in the imaged spine. Old healed right posteriorlower rib fractures are again seen.IMPRESSION: .. Limited s tudy demonstrating increase in bilateral pleuraleffusions with associated consoli dations with persistent cardiomediastinal shifttowards the right. Stable findings as noted above.. One or more of the followingdose reduction techniques were used: automated exposure control, adjustment ofthe mA and/or kV according to patient size, use of iterative reconstructivetechnique. THIS DOCUMENT H BEEN ELECTRONICALLY SIGNED Kamran Gillette MD 12/18/2018 04:49 GINA Verde Please call [facility] [employer] Consultant [phone] with questions. This report was electronically signed by: Tala MENDEZ 12/18/2018 04: 50 [facility] Chest Wo ContResult Date: 12/13/2018History: Respiratory difficulty . FINDINGS: CT scanning of the chest wasperformed helically from the lung api martine to the upper abdomen withoutintravenous contrast material. Sagittal and coronal reconstructed images aresubmitted. Scanning was performed utilizing dose lowering te chniques and iscompared to the prior study of 11/08/2018. The study is quite limited by patientpositioning. Evaluation of thoracic vascular structures is limited withoutin travenous contrast material does not reveal evidence of aneurysmal dilatationor defi nite CT evidence of dissection. Coronary artery calcification is seen.There is mi nimal calcification of the aortic arch. There is minimalcalcification of the descendin g thoracic aorta. There is no definite evidence ofany pathologically enlarged l ymph node in the visualized portions of themediastinum or axillae. Evaluation of pulmonary parenchymal structures revealssome atelectatic change in the right upper lo be. There is a small left pleuraleffusion as well as left basilar atelectatic change. There is some patchyopacity within the right middle lobe and right lower lobe which c ould also beinfiltrative in nature. Limited evaluation of upper abdominal structures isunremarkable. There is deviation of mediastinal structures to the right. Thi scould be as result of atelectatic change within the right lung. This has beenseen previously and is unchanged.IMPRESSION: Extremely limited study by patient posit ioning. Deviation ofmediastinal structures to the right as has been seen on prior stud ies. Leftpleural effusion. Bilateral infiltrates and atelectasis, greater on the rightthan the left.Cta Up Ext Lt W ContResult Date: 12/18/2018History: Arm cl audication. FINDINGS: CTA of the left upper extremity wasperformed helically from le ricky of the shoulder through the fingers after theintravenous administration of 119 cc of Isovue. Sagittal, coronal, and 3-Dreconstructed images obtained on an RealtimeBoard workstation are submitted. Noprior studies are available for comparison. Th e left subclavian artery is widelypatent. It is continuous with a widely patent left axillary artery. The axillaryartery is continuous with a widely patent left bra chial artery. The brachialartery bifurcates into a radial and ulnar artery just belo w the elbow. From thispoint distally streak artifact from patient positioning limits evaluation.However, the ulnar artery appears widely patent to the wrist. The radial a rteryis less well opacified but does appear patent to the wrist as well. Anintraosse ous artery also appears patent although it is poorly visualized aswell. The digital ar teries are not visualized on this study. There arebilateralpleural effusions note d both of which are moderate to large. Theeffusion on the left one is larger th an the right. Bibasilar atelectatic changethroughout much of the lower lobes is seen. There is a significant shift ofmediastinal structures to the right. T he liver is decreased in attenuationcompatible with fatty infiltr ation. The spleen is unremarkable. The adrenalglands are normal in appearance. The pancreas is grossly normal as is thegallbladder. A gastrostomy tube is no mikel in situ. The kidneys are unremarkable.There is a midline abdomina l wall hernia containing large and small bowel aswell as mesentery without eviden ce of obstruction. There is some presacralthickening and possibly some fr ee fluid noted. The patient is status post ORIFof the left hip with metallic hardwa re in situ.IMPRESSION: Patent left upper extremity arterial vessels although eval uationdistally is limited. Bilateral pleural effusions and bibasilar atelectasis.Shif t of mediastinal structures to the right.Ct Abd Pelv Wo ContResult Date: 12/21/2018His tory: ? Maturity of g-tube tract Technique: CT of the abdomen and pelvis wasperforme d from the dome of the diaphragm to the pubic symphysis without oral orintravenous con trast with dose lowering techniques. Sagittal and coronalreconstructions were performe d. Evaluation of solid abdominal viscera iscompromised by by the lack of intraven ous contrast. Evaluation of the bowelloops is compromised lack of oral contrast. All C T scans at this facility areperformed using dose optimization technique as appropria te to a performed exam,to include automated exposure control, adjustment of the mA a nd/or kV accordingto patient size (including appropriate matching first site-specific examinations), or use of iterative reconstruction technique. Comparison: CT scanof the chest performed 12/19/18 Findings: There is a small right pleural effusionw ith adjacent atelectasis. There is minimal left pleural fluid with adjacentatelecta sis. There is a pigtail catheter again identified on the left. The exactlocatio n of this catheter is difficult to ascertain benefits above the diaphragmto below the diaphragm. On today's study the tip appears to be located below thediaphragm. There is a small right pleural effusion with adjacent atelectasis.There is a G-tube i dentified in the stomach. The liver, gallbladder, spleen,pancreas, kidneys an d adrenal glands are unremarkable. No abdominal, pelvic oringuinal lymphadenop athy is identified. No free intraperitoneal fluid is noted.There is a ventral wall h ernia containing loops of what appear to be small bowelhowever are difficult to foll ow. There is mild perirectal stranding andpresacral edema correlate clinically. No dilated loops of bowel are identified.There is mild diverticulosis of the colon. The prostate, bladder and seminalvesicles appear unremarkable. The re are streak artifact obscuring portions ofthe pelvis due to a left hip ORIF. The re is subcutaneous gas identified alongthe right lower anterior pelvic wall.IMPRESS ION: There is a G-tube identified in the stomach. There is a tailcatheter identif ied on the left. The tip appears to be located below thediaphragm although is d ifficult to assess on CT. There is a small residualamount of pleural fluid as well as atelectasis along the left diaphragm. Thereis perirectal stranding and presacr al edema.Ct Thoracentesis Insrt Chest TubeResult Date: 12/19/2018History: Pleura l effusion. PROCEDURE: After being informed of the risks,benefits, and potential alt ernatives procedure informed consent was obtained.The patient was placed on the t able in the hcyuo-ekst-wfcj decubitus position.CT scanning was performed locat ion was chosen over the left flank. However, dueto the significant amount of patient motion and breathing motion was difficultto accurately assess a location for percuta neous paracentesis. Therefore, thiswas performed manually. After the chosen reg ion was prepped and draped in thenormal sterile fashion using maximum sterile ba rrier technique a lidocaineneedle was placed in the skin. This appeared to be in good position. Lidocainewas then used to anesthetize the skin and subcutaneous ti ssues in this location.Attempts were made to pass an 8 Congolese pigtail catheter throug h this location.However, patient continuous motion was significant as well as excess ivebreathing during the procedure. The catheter was placed at the same interspa ceas well as marked on the prior CT sequence however, due to the excessive patientmot ion the catheter was far more inferior within the chest that on the priorsequences. Th e catheter appeared to enter the hemiabdomen on the left from theleft chest. The cath eter was then pulled back to position where clear yellowfluid was aspirated. It was then sewn in position However, It appeared tomigrate forward and on the CT scanning appeared to again transgress thediaphragm. It was therefore pulled back to a point where only a clear fluid wasaspirated and respiratory variation was noted within t he tube. It was then sewnin position using 2-0 silk sutures. FINDINGS: Initial CT s debora revealed amoderate left pleural effusion. Attempts to nancy an adequate l ocation forpercutaneous thoracentesis were quite limited due to excessive patient m otionand breathing throughout the procedure. A location that appear to be a safelocat ion was marked. However, when the catheter was placed in this sameinterspace as wel l as marked the catheter appeared to be far more inferiorwithin the hemithorax than that seen previously. It appeared to enter the lefthemithorax inferiorly and transg ress the diaphragm with no evidence pathologicsequela. Therefore, it was pul led back into the pleural space for adequatedrainage. 130 cc of lightly bloo d-tinged fluid was aspirated. The catheter wasattached to a Pleur-evac and wall suc tion.IMPRESSION: Left-sided thoracentesis described above.Xr Chest PortResult Date : 12/18/2018Portable chest x-ray. PRIOR EXAM: 12/12/2018 and 11/25/2018 HISTORY: Pneumon ia andpleural effusions FINDINGS: The heart is normal in size. The mediastinum andpu lmonary vessels are unremarkable. There is haziness within the lung basesbilaterall y... The bony structures are intact.IMPRESSION: Haziness within the l eunice bases bilaterally that could representsmall pleural effusions and/or subsegmental atelectasis. Similar findings wereseen on prior exams.Xr Chest PortRes ult Date: 12/13/2018History: Respiratory difficulty. FINDINGS: A frontal portable view of the chestis compared to the prior study from earlier in the same day. EKG leads overliethe chest. The cardiac silhouette is normal in size. The left l eunice is clear. Theright lung is poorly evaluated due to significant rotation. T he possibility ofright basilar infiltrate or atelectatic change cannot be excluded. M ediastinaland hilar structures are poorly evaluated as well.IMPRESSION: Study quit e limited due to rotation. Opacity at the right lung basemay be infiltrative or at electatic in nature.Xr Chest PortResult Date: 12/12/2018History: Fever. Lethargy. FINDI NGS: 2 frontal views of the chest are compared tothe prior study of 11/25/2018. EKG leads overlie the chest. The cardiacsilhouette is normal in size. The re may be some streaky changes at the lungbases. Evaluation of the lungs and m ediastinal structures is quite limited dueto rotation.IMPRESSION: Study quite limited by rotation. Basilar streaks noted.Medications:Current Facility-Admin istered MedicationsMedication Dose Route Frequency dextrose 5% infusion 50 mL/h r IntraVENous CONTINUOUS methylPREDNISolone (PF) (SOLU-MEDROL) injection 20 mg 20 m g IntraVENous PCL haloperidol lactate (HALDOL) injection 2 mg 2 mg IntraVENou s Q6H PRN acetaminophen (TYLENOL) solution 650 mg 650 mg Per NG tube Q4H PRN albu terol-ipratropium (DUO-NEB) 2.5 MG-0.5 MG/3 ML 3 mL Nebulization Q4H PRN potassium , sodium phosphates (NEUTRA-PHOS) packet 1 Packet 1 Packet Oral QID acetylcystein e (MUCOMYST) 100 mg/mL (10 %) nebulizer solution 200 mg 2 mLNebulization BID RT albuterol-ipratropium (DUO-NEB) 2.5 MG-0.5 MG/3 ML 3 mL Nebulization Q6H RT bacit racin 500 unit/gram packet 1 Packet 1 Packet Topical BID piperacillin-tazobactam (ZO SYN) 3.375 g in 0.9% sodium chloride (MBP/ADV) 100mL MBP 3.375 g IntraVENous Q8H budesonide (PULMICORT) 500 mcg/2 ml nebulizer suspension 500 mcg Nebulizati onBID RT lamoTRIgine (LaMICtal) tablet 50 mg 50 mg Per G Tube BID valproic acid (as sodium salt) (DEPAKENE) 250 mg/5 mL (5 mL) oral solution 750mg 750 mg Per G Tube B ID cinacalcet (SENSIPAR) tablet 60 mg 60 mg Oral DAILY pantoprazole (PROTONIX) gran ules for oral suspension 40 mg 40 mg Per G TubeACB heparin (porcine) injection 5,0 00 Units 5,000 Units SubCUTAneous Q12H sodium chloride (NS) flush 5-10 mL 5-10 mL IntraVENous PRNActive Problems: Pneumonia (11/08/2018) Sepsis due to und etermined organism (HCC) (12/12/2018)Assessment:Mr. Carlin is a 68 y.o. year old male who is being seen for ACUTE RESPIRATORYSILURE.Evelio rivera is a 68 y.o. male who has been seen for respfailure.pneumonia,recently discharge d..Patient with MR,aspiration pneumonia,dysphagia,s/p peg placement,CO PD,pulmonaryembolism,schizophrenia was transferred from the long-term for fe [id number],shortness of breath and tachycardia.Patient is non verbal,unable toprovide history.History obtained from chart review.He was started on IVcefepim e,solumedrol and given a dose of IV vancomycin as per records from [place].Hewas afebrile on arrival to the ER with elevated lactic acid of 5.3with respiratory distr ess.course reviewed. 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) Pneumonia Psychiatric disorder Pulmonary emboli (HCC) Sc hizophrenia (HCC) ACUTE RESPIRATORY FAILURE METABOLIC ENCEPHALOPATHY LEFT PLEURAL CATH DRAINING FLUID pLAN BIAPAP AT NIGHT NASAL CANNULA DAY TIME REPEAT CA T SCAN OF CHEST R/ O ATELECTASIS RT L L INCREASE SOLUMEDROL 40 MG Q 8 H I V ZOSYN IF HE DETERIORATES MAY NEED INTUBATION MAY D/C LEFT CHEST CATH IN AM Krystian Monae MD F.C.C.P.December 22, 201810:46 PM Name Value Range Interpretation Code Description Data [facility] Supporting Document(s ) ID Date Data Source [id number] 12/22/2018 07:26:06 PM EDT [facility] Bedside and Verbal shift change report carol pham to leann ryan RN (oncoming nurse)by Noemy Molina RN(offgoing nurse ). Report given with SBAR, Kardex, Intake/Output, MAR and RecentResults. Name Value Range Interpretation Code Description Data [facility](s) Supporting Document(s ) ID Date Data Source [id number] 12/22/2018 06:10:46 PM EDT [facility] Name Value Range Interpretation Description Data Sup porting Code Source(s) Document(s ) Glucose 109 MG/DL 65-110 [facility] [place] [Mass/volume] Taoist in Blood by Hospital Automated test strip ID Date Data Source [id number] 12/22/2018 03:17:13 PM EDT [facility] Hospital ID Progress Note12/22/2018Patient is non v erbal,unable to provide any historyAfebrileS/p left pigtail catheter insertion for pleural effusion 12/19/18, gram stain withfew wbc, culture NGTDObjective :Vitals:Patient Vitals for the past 24 hrs: BP Temp Pulse Resp SpO2 Rkpuvk43/09/19 1 131 109/60 97.2 F (36.2 C) 61 20 97 % -12/22/18 0948 - - - - (!) 72 % - 9 0836 - - - - 92 % -12/22/18 0719 (!) 124/97 97.2 F (36.2 C) (!) 54 20 90 % - 0629 - - - - - 62.3 kg (137 lb 6.4 oz)12/22/18 0402 108/63 97.1 F (36.2 C ) (!) 53 22 99 % -12/22/18 0124 - - - - 100 % -12/21/18 2306 109/55 97 F (36.1 C) 62 18 100 % -12/21/18 2027 98/64 98.2 F (36.8 C) 61 18 99 % -12/21/18 1841 - - - - 99 % -12/21/18 1613 - - - - 96 % -12/21/18 1524 114/90 98 F (36.7 C) 67 18 95 % -Tmax: Temp (24hrs), Av.5 F (36.4 C), Min:97 F (36.1 C), Max:98.2 F(36.8 C)Physic al Exam:General: Awake non verbal, cooperative, no distressMouth/Throat: Dr jamison wilkins, mucosaNeck: Supple, symmetrical, trachea midline, no adenopathyLungs: D ecrease breath sounds at bases. +Heart: Regular rate and rhythm, S1, S2 normal, no murmurAbdomen: Soft, non-tender. Bowel sounds normal. No masses, No organomega ly.+feeding tubeBack: No CVA tenderness.Extremities: Extremities norm al, atraumatic, no cyanosis or edema.Pulses: 2+ and symmetric all extremities.Skin: S kin color, texture, turgor normal. No rashes or lesionsCurrent Facility-Administered MedicationsMedication Dose Route Frequency dextrose 5% infusion 50 mL/hr IntraVENo us CONTINUOUS methylPREDNISolone (PF) (SOLU-MEDROL) injection 20 mg 20 mg Int raVENous PCL haloperidol lactate (HALDOL) injection 2 mg 2 mg IntraVENous Q6H PRN acetaminophen (TYLENOL) solution 650 mg 650 mg Per NG tube Q4H PRN oxyCODONE-ac etaminophen (PERCOCET) 5-325 mg per tablet 1 Tab 1 Tab Oral Q8HPRN albuterol-ipratr opium (DUO-NEB) 2.5 MG-0.5 MG/3 ML 3 mL Nebulization Q4H PRN potassium, sodium phosphates (NEUTRA-PHOS) packet 1 Packet 1 Packet Oral QID acetylcysteine (MUCOMYS T) 100 mg/mL (10 %) nebulizer solution 200 mg 2 mLNebulization BID RT albuterol-ipra tropium (DUO-NEB) 2.5 MG-0.5 MG/3 ML 3 mL Nebulization Q6H RT bacitracin 500 unit /gram packet 1 Packet 1 Packet Topical BID piperacillin-tazobactam (ZOSYN) 3.375 g in 0.9% sodium chloride (MBP/ADV) 100mL MBP 3.375 g IntraVENous Q8H budesonide (PUL MICORT) 500 mcg/2 ml nebulizer suspension 500 mcg NebulizationBID RT lamoTRIgine (LaMICtal) tablet 50 mg 50 mg Per G Tube BID valproic acid (as sodium salt) (DEPAKEN E) 250 mg/5 mL (5 mL) oral solution 750mg 750 mg Per G Tube BID cinacalcet (SENSI PAR) tablet 60 mg 60 mg Oral DAILY pantoprazole (PROTONIX) granules for ora l suspension 40 mg 40 mg Per G TubeACB heparin (porcine) injection 5,000 Units 5,000 Units SubCUTAneous Q12H sodium chloride (NS) flush 5-10 mL 5-10 mL Int raVENous PRNLabs:Recent Labs 12/21/1902WBC -- -- 9 .2HGB -- -- 10.6*PLT -- -- 254BUN 17 22* 23*CREA 0.33* 0.45* 0.48*Cultures:La b ResultsComponent Value Date/Time Culture result: NO GROWTH 3 DAYS 12/19/2018 12:3 0 PM Culture result: NO GROWTH 2 DAYS 12/19/2018 12:30 PM Culture result: NO G ROWTH 1 DAY 12/12/2018 08:04 PMRadiology:No results found.Assessment: Sepsis. Aspi ration pneumonia. Acute respiratory failure with hypoxia and hypercapnia. Acute WINE MASTER D exacerbation. Dysphagia. Atelectasis. Pleural effusion. Plan:1. Continue IV zosyn one more day then discontinue2. Follow cultures.Monica Gomez, MARICELeptember 9, 2 [id number] PM Name Value Range Interpretation Code Description Data [facility]riett rce(s) Supporting Document(s ) ID Date Data Source [id number] 12/22/2018 01:55:50 PM EDT [facility] Relevant ProblemsNo relevant active prob lemsAnesthetic HistoryReview of Systems / Medical HistoryPatient summary reviewed and pertinent labs reviewedPulmonaryCOPDPneumonia Neuro/Psy chPsychiatric historyComments: Mental retardationschezophoreniaParkinson's diz CardiovascularComments: Hx PE.GI/Hepatic/RenalGERD Endo/OtherAnemia Other FindingsComments: B/L pleural small effusion.Sepsis.MR.Physical ExamAirwayTM Distance: 4 - 6 cm Cardiovascular DentalPulmonary Abdominal Other Findings Anesthetic PlanASA: 3Anesthesia type: MACInduction: Intravenous Name Value Range Interpretation Code Description Data Harriett rce(s) Supporting Document(s ) ID Date Data Source [id number] 12/22/2018 01:52:57 PM EDT [facility] Problem: Nutrition DeficitGoal: *Optimiz e nutritional statusDescriptionPt to progress towards meeting >80% nutrient needs with in 3-7 daysOutcome: Not Progressing Towards GoalOnce J-tube placed and ready to star t feeds: suggest change formula to Osmolite1.5 (low fat, fiber-free), evelyn nuous at 20 mL/hr progressing toward goal rateof 50 mL/hr (1800 kcal, 75 gm pro, 2 44 gm CHO, 59 gm fat, 914 mL water) and 125mL free water flush q 4 hr once IVF d/c'dBo aspen feedings not appropriate for J-tube. Name Value Range Interpretation Code Description Data Harriett rce(s) Supporting Document(s ) ID Date Data Source [id number] 12/22/2018 01:49:08 PM EDT [facility] NUTRITIONFollow Up NoteSubjective: Pt fo r placement of J-tube today; no EN infusing. Nutrition Rx: Pulmocare bolus q 4 hr (5x ), 85 mL free water before and aftereach bolus (held)Labs: POC glu 86, 73, 138 Gl u 113 Creat 0.33Medications reviewed. Receiving D5W at 50 mL/hr, Solu-Medrol.S kin: 3+ genital, 2+ LUE, RUE, 1+ LLE, RLE edema; butch score 13GI: G-tube, +BMWei ght: 57.6 kg (up 4.7 kg since last assessment; inc edema) Nutrition Diagnos is: remains the same (Increased protein and energy needs) Once J-tube placed and shilo dy to start feeds: suggest change formula to Osmolite1.5 (low fat, fiber-free), evelyn nuous at 20 mL/hr progressing toward goal rateof 50 mL/hr (1800 kcal, 75 gm pro, 2 44 gm CHO, 59 gm fat, 914 mL water) and 125mL free water flush q 4 hr once IVF d/c'dBo aspen feedings not appropriate for J-tube. Will continue to monitor Skin integrity and E N. Discharge Planning: Pending clinical course Candy Correa RD Name Value Range Interpretation Code Description Data Harriett rce(s) Supporting Document(s ) ID Date Data Source [id number] 12/22/2018 01:27:57 PM EDT [facility] Patient seen and examined. He was on Bip ap overnight and for a while thismorning.His O2 sats remain on the low side (90% on 6 Liters).NonverbalSoft, NTCT scan noted.Imp: aspiration with gastrostomy tube feeding sPlan: will defer placement of jejunal extension tube today and tentatively jocelyn nfor the procedure tomorrow pending improvement in his respiratory status.D/ w RN. Name Value Range Interpretation Code Description Data Harriett rce(s) Supporting Document(s ) ID Date Data Source [id number] 12/22/2018 12:10:40 PM EDT [facility] Name Value Range Interpretation Description Data Sup porting Code Source(s) Document(s ) Glucose 86 MG/DL 65-110 [facility] [Mass/volume] Taoist in Blood by Hospital Automated test strip ID Date Data Source [id number] 12/22/2018 10:12:08 AM EDT [facility] Patient's sao2 is 72% on 4 lt nasal canu la, placed on BIPAP. Name Value Range Interpretation Code Description Data Harriett rce(s) Supporting Document(s ) ID Date Data Source [id number] 12/22/2018 10:07:05 AM EDT [facility] Progress NOTENAME: Evelio FischbeinDOB : 1950MRN: [id number]/Time: 12/22/2018 9:15 AMHISTORY OF PRESENT ILLNE SS:Evelio is a 68 y.o. male who presents from [facility] with medical history ofDysphag ia with recent admission s/p surgical peg placement on 11/17/18, severeintellectual disability, Chronic respiratory failure, hyperparathyroidunspecified, personal h/ o pulmonary embolus, anxiety disorder, kyphosis andschizophrenia.The patient is unable to provide a history due to his mental disability. Thenursing home staf f reporting pt had a cough, fever to 103 F and hypoxia. ChestXR showed suspicion f or a Pneumonia. Pt was given Iv Cefepime, Vancomycin andSolu- medrol. Pt was later found minimally responsive and was sent to the ED. In the ED, chest xr showed some streaky changes at the lung bases. ABG showedpH 7.40/55/56/34/ O2 SAT 90 % on 2 LPM and Lactic Acid was elevated to 5.5. Thepatient was given Iv Zosyn, Solu-Medr ol, nebulizer and IVF.Repeat lactic acid was still elevated at 5.3.The patient was ad mitted with enxounter diagnosis of Sepsis due to unspecifiedorganism, Pnermonia, unspe cified and COPD exacerbation.The patient was seen and examined at bedside he is less lethargic, nonverbbal.He is coughing. 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 No pertinent surgical history.Social HistoryTobacco Use Smoking status: Nilo uribe Smoker Smokeless tobacco: Never UsedSubstance Use Topics Alcohol use: N oHistory reviewed. No pertinent family history.No Known AllergiesPrior to Admis elio medicationsMedication Sig Start Date End Date Taking? Authorizing Providerpantopr azole (PROTONIX) 40 mg granules for oral suspension 40 mg by Per G Tuberoute Kyleigh y (before breakfast). 11/28/18 Yes Mili Hills, DObudesonide (PULMICORT) 0.5 mg /2 mL nbsp 2 mL by Nebulization route two (2) timesa day for 30 days. 11/27/18 12/27/18 Yes Mili Hills, DOmultivitamin (ONE A DAY) tablet Take 1 Tab by mouth daily. Yes Provider,Historicalclorazepate (TRANXENE) 3.75 mg tablet Take by mouth nightly. Yes Provider,Historicalalbuterol-ipratropium (DUO-NEB) 2.5 mg-0.5 mg/3 ml nebu 3 mL by Nebulizationroute every six (6) hours as needed. Yes Provider, HistoricallamoTRIgine (LAMICTAL) 25 mg t ablet Take 50 mg by mouth two (2) times a day.Yes Provider, Historicalcinacalcet ( SENSIPAR) 30 mg tablet Take 60 mg by mouth daily. Yes Provider,Historicalvalproat e (DEPAKENE) 250 mg/5 mL syrup Take 750 mg by mouth two (2) times a day.Yes Provider, HistoricalREVIEW OF SYSTEMS: [x] Unable to obtain ROS due to patient factors.Object britni:VITALS:Visit VitalsBP (!) 124/97 (BP 1 Location: Left arm, BP Patient Position: At rest)Pulse (!) 54Temp 97.2 F (36.2 C)Resp 20Ht 5' 2" (1.575 m)Wt 62.3 kg (1 37 lb 6.4 oz)SpO2 92%BMI 25.13 kg/m PHYSICAL EXAM:General: Alert, cooperative, no distress, appears stated age.Head: Normocephalic, without obvious abnormali ty, atraumatic.Eyes: Conjunctivae clear, anicteric sclerae. Pupils are equalThro at: Lips, mucosa, and tongue normal. No ThrushNeck: Supple, symmetrical, no ad enopathy, no carotid bruit and no JVD.Back: Symmetric, No CVA tenderness.Lungs: Bilateral air entry.. Decreased breath sounds RUL. No Wheezing orRhonchi. No rales.Chest wall: No Accessory muscle use.Heart: Regular rate and rhythm, n o murmur, or rubAbdomen: Positive peg, non-tender. Not distended. Bowel sounds normal. NomassesExtremities: Extremities normal, atraumatic, No cyanosis. No deepthi ma. No clubbingSkin: Warm and dry. No rashes or lesions. Not JaundicedLymph n odes: Cervical, supraclavicular normal.Psych: Not anxious or agitated.Neurologic: EOM s intact. No facial asymmetry. No aphasia or slurred speech.Generalized weakness, whe el chair bound., Alert and Awake, nonverbal. .LAB DATA REVIEWED:Recent Results (from the past 24 hour(s))GLUCOSE, POC Collection Time: 12/21/18 1:51 PMResult Value Ref Range Glucose, bedside 112 (H) 65 - 110 MG/DLGLUCOSE, POC Collection Time: 12/21 6:05 PMResult Value Ref Range Glucose, bedside 110 65 - 110 MG/DLGLUCOSE, POC C ollection Time: 12/22/18 12:04 AMResult Value Ref Range Glucose, bedside 138 (H) 65 - 110 MG/DLRENAL FUNCTION PANEL Collection Time: 12/22/18 3:24 AMResult Value Ref Range Sodium 137 136 - 145 mmol/L Potassium 4.6 3.5 - 5.1 mmol/L Chloride 98 98 - 10 7 mmol/L CO2 35 (H) 21 - 32 mmol/L Anion gap 8 (L) 10 - 20 mmol/L Glucose 113 (H) 74 - 106 mg/dL BUN 17 7 - 18 mg/dL Creatinine 0.33 (L) 0.70 - 1.30 mg/dL GFR est AA >6 0 >60 ml/min/1.73m2 GFR est non-AA >60 >60 ml/min/1.73m2 Calcium 8.0 (L) 8.5 - 10.1 mg/dL Phosphorus 3.6 2.5 - 4.9 mg/dL Albumin 1.9 (L) 3.5 - 4.7 g/dLMAGNESIUM Collecti on Time: 12/22/18 3:24 AMResult Value Ref Range Magnesium 2.1 1.6 - 2.6 mg/dLGLUCO SE, POC Collection Time: 12/22/18 6:25 AMResult Value Ref Range Glucose, bedsid e 73 65 - 110 MG/DLAssessment/Plan:Active Problems: Pneumonia (11/08/2018) Sepsis due to undetermined organism (HCC) (12/12/2018) Acute Respiratory Failure wi th hypercapnia and Hypoxia/ improved Metabolic Acidosis - Resolving Sepsis -p oa Metabolic Encephalopathy/ improved Aspiration Pneumonia Acute COPD exacerba tion Dysphagia s/p surgically place,emt of peg Mentally challenged Seizure disorder Hyperparathyroid worsening pleural effusion bilaterallyS/p thoracentesis PLAN:Risk of deterioration: []Low []Moderate1. Fo r PEG replacment today2. IV fluids3.O2 NC/BIPAP4.off v Zosyn5. Pulmonary follo w up6. ID follow up7. CT chest , bilateral Pleural effusion8. Restart officer captain medicatio ns via peg Covering for Admitting Physician: Oralia Frankel MD December 22, 2018 9:15 AM Name Value Range Interpretation Code Description Data Harriett rce(s) Supporting Document(s ) ID Date Data Source [id number] 12/22/2018 07:20:22 AM EDT [facility] Bedside and Verbal shift change report g iven to Noemy Molina RN (oncoming nurse)by Shira Beatty RN(offgoing nurse). Report given with SBAR, Kardex, Intake/Output, MAR and RecentResults. Name Value Range Interpretation Code Description Data Harriett rce(s) Supporting Document(s ) ID Date Data Source [id number] 12/22/2018 07:19:55 AM EDT [facility] Fingerstick is 73 now. Patient is being kept npo for possible jejunostomytoday. Dr. Hills called to notify. Awaiting for r eturn call. Name Value Range Interpretation Code Description Data [facility] rce(s) Supporting Document(s ) ID Date Data Source [id number] 12/22/2018 06:45:19 AM EDT [facility] Name Value Range Interpretation Description Data Sup porting Code Source(s) Document(s ) Glucose 73 MG/DL 65-110 [facility] [Mass/volume] Taoist in Blood by Hospital Automated test strip ID Date Data Source [id number] 12/22/2018 04:41:20 AM EDT [facility] Name Value Range Interpretation Description Data Sup porting Code Source(s) Document(s ) Sodium 137 136-145 [facility] [Moles/volume] mmol/L Taoist in Serum or Hospital Plasma Potassium 4.6 3.5-5.1 [facility] [Moles/volume] mmol/L Taoist in Serum or Hospital Plasma Chloride 98 98-107 [facility] [Moles/volume] mmol/L Taoist in Serum or Hospital Plasma Carbon 35 21-32 Above high normal [facility] dioxide, total mmol/L Taoist [Moles/volume] Hospital in Serum or Plasma Anion gap in 8 mmol/L 10-20 Below low normal [facility] od Serum or Taoist Plasma Hospital Glucose 113 74-106 Above high normal [facility] [Mass/volume] mg/dL Taoist in Serum or Hospital Plasma Urea nitrogen 17 mg/dL 7-18 [facility] [Mass/volume] Taoist in Serum or Hospital Plasma Creatinine 0.33 0.70-1.3 Below low normal [facility] [Mass/volume] mg/dL 0 Taoist in Serum or Hospital Plasma Glomerular >60 [facility] filtration Taoist rate/1.73 sq M Hospital predicted among blacks [Volume Rate/Area] in Serum or Plasma by Creatinine-bas ed formula (MDRD) Glomerular >60 [facility] filtration Taoist rate/1.73 sq M Hospital predicted among non-blacks [Volume Rate/Area] in Serum or Plasma by Creatinine-bas ed formula (MDRD) Calcium 8.0 8.5-10.1 Below low normal [facility] [Mass/volume] mg/dL Taoist in Serum or Hospital Plasma Phosphate 3.6 2.5-4.9 [facility] [Mass/volume] mg/dL Taoist in Serum or Hospital Plasma Albumin 1.9 g/dL 3.5-4.7 Below low normal [facility] [Mass/volume] Taoist in Serum or Hospital Plasma by Bromocresol purple (BCP) dye binding method ID Date Data Source [id number] 12/22/2018 04:41:20 AM EDT [facility] Name Value Range Interpretation Description Data Sup porting Code Source(s) Document(s ) Magnesium 2.1 mg/dL 1.6-2.6 [facility] - Good [Mass/volume] Taoist in Serum or Hospital Plasma ID Date Data Source [id number] 12/22/2018 12:17:11 AM EDT [facility] Name Value Range Interpretation Description Data Sup porting Code Source(s) Document(s ) Glucose 138 MG/DL 65-110 Above high normal [facility] - Good [Mass/volume] Taoist in Blood by [facility] Automated test strip ID Date Data Source [id number] 12/21/2018 08:27:55 PM EDT [facility] ID Progress Note12/21/2018Subjective:Pt se en early head start director todayPatient is non verbal,unable to provide any historyAfeb Jude/p left pigtail catheter insertion for pleural effusion 12/19/18, gram stain with few wbc, culture NGTDObjective:Vitals:Patient Vitals for the past 24 hrs: BP Temp Puls e Resp SpO2 Rmgenx39/08/19 1841 - - - - 99 % -12/21/18 1613 - - - - 96 % -12/21/18 15 24 114/90 98 F (36.7 C) 67 18 95 % -12/21/18 0900 - - - - 99 % -12/21/18 08 44 - - - - 98 % -12/21/18 0812 103/70 97.2 F (36.2 C) (!) 55 20 100 % -12/21/18 0801 125/83 97.3 F (36.3 C) 98 20 97 % -12/21/18 0756 - - - - 100 % -12/21/18 0 729 - - - - - 63.3 kg (139 lb 9.6 oz)12/21/18 0545 - - - - 97 % -12/21/18 0400 103/52 97 F (36.1 C) 61 18 97 % -12/21/18 0129 - - - - 97 % -12/21/18 0111 (!) 130/98 99 F (37.2 C) 78 18 94 % -12/20/182 - - - - 94 % -Tmax: Temp (24hrs), Av.7 F ( 36.5 C), Min:97 F (36.1 C), Max:99 F (37.2 C)Physical Exam:General: Awake no n verbal, cooperative, no distressMouth/Throat: Dry oral, mucosaNe ck: Supple, symmetrical, trachea midline, no adenopathyLungs: Decrease breath sound s at bases. +Heart: Regular rate and rhythm, S1, S2 normal, no murmurAbdomen: Soft, non-tender. Bowel sounds normal. No masses, No organomegaly.+feeding tubeBack: No CVA tenderness.Extremities: Extremities normal, atraumatic, no cyanosis or edema .Pulses: 2+ and symmetric all extremities.Skin: Skin color, texture, t urgor normal. No rashes or lesionsCurrent Facility-Administered MedicationsMedicat ion Dose Route Frequency [START ON 12/22/2018] methylPREDNISolone (PF) (SOLU-MEDROL) in jection 20 mg 20mg IntraVENous PCL haloperidol lactate (HALDOL) injection 2 mg 2 mg IntraVENous Q6H PRN acetaminophen (TYLENOL) solution 650 mg 650 mg Per NG tube Q4H PRN oxyCODONE-acetaminophen (PERCOCET) 5-325 mg per tablet 1 Tab 1 Tab Oral Q8HPRN albuterol-ipratropium (DUO-NEB) 2.5 MG-0.5 MG/3 ML 3 mL Nebul ization Q4H PRN potassium, sodium phosphates (NEUTRA-PHOS) packet 1 Packet 1 Packet Oral QID acetylcysteine (MUCOMYST) 100 mg/mL (10 %) nebulizer solution 200 mg 2 mLNe bulization BID RT albuterol-ipratropium (DUO-NEB) 2.5 MG-0.5 MG/3 ML 3 mL Nebul ization Q6H RT bacitracin 500 unit/gram packet 1 Packet 1 Packet Topical BID p iperacillin-tazobactam (ZOSYN) 3.375 g in 0.9% sodium chloride (MBP/ADV) 100mL MBP 3.375 g IntraVENous Q8H budesonide (PULMICORT) 500 mcg/2 ml nebulizer suspe nsion 500 mcg NebulizationBID RT lamoTRIgine (LaMICtal) tablet 50 mg 50 mg Per G Tube BID valproic acid (as sodium salt) (DEPAKENE) 250 mg/5 mL (5 mL) oral solution 750mg 750 mg Per G Tube BID cinacalcet (SENSIPAR) tablet 60 mg 60 m g Oral DAILY pantoprazole (PROTONIX) granules for oral suspension 40 mg 40 m g Per G TubeACB heparin (porcine) injection 5,000 Units 5,000 Units SubCUTAneous Q1 2H sodium chloride (NS) flush 5-10 mL 5-10 mL IntraVENous PRNLabs:Recent Labs 12/20/1902WBC -- 9.2 --HGB -- 10.6* --PLT -- 254 - -BUN 22* 23* 18CREA 0.45* 0.48* 0.40*Cultures:Lab ResultsComponent Value Date/Time Culture result: NO GROWTH 2 DAYS 12/19/2018 12:30 PM Culture result: NO G ROWTH 2 DAYS 12/19/2018 12:30 PM Culture result: NO GROWTH 1 DAY 12/12/2018 08:04 PMRadiology:Ct Abd Pelv Wo ContResult Date: 12/21/2018History: ? Maturity of g-tube tr act Technique: CT of the abdomen and pelvis wasperformed from the dome of the diaphr agm to the pubic symphysis without oral orintravenous contrast with dose lowerin g techniques. Sagittal and coronalreconstructions were performed. E valuation of solid abdominal viscera iscompromised by by the lack of intraven ous contrast. Evaluation of the bowelloops is compromised lack of oral contrast. All C T scans at this facility areperformed using dose optimization technique as appropria te to a performed exam,to include automated exposure control, adjustment of the mA a nd/or kV accordingto patient size (including appropriate matching first site-specific examinations), or use of iterative reconstruction technique. Comparison: CT scanof the chest performed 12/19/18 Findings: There is a small right pleural effusionw ith adjacent atelectasis. There is minimal left pleural fluid with adjacentatelecta sis. There is a pigtail catheter again identified on the left. The exactlocatio n of this catheter is difficult to ascertain benefits above the diaphragmto below the diaphragm. On today's study the tip appears to be located below thediaphragm. There is a small right pleural effusion with adjacent atelectasis.There is a G-tube i dentified in the stomach. The liver, gallbladder, spleen,pancreas, kidneys an d adrenal glands are unremarkable. No abdominal, pelvic oringuinal lymphadenop athy is identified. No free intraperitoneal fluid is noted.There is a ventral wall h ernia containing loops of what appear to be small bowelhowever are difficult to foll ow. There is mild perirectal stranding andpresacral edema correlate clinically. No dilated loops of bowel are identified.There is mild diverticulosis of the colon. The prostate, bladder and seminalvesicles appear unremarkable. The re are streak artifact obscuring portions ofthe pelvis due to a left hip ORIF. The re is subcutaneous gas identified alongthe right lower anterior pelvic wall.IMPRESS ION: There is a G-tube identified in the stomach. There is a tailcatheter identif ied on the left. The tip appears to be located below thediaphragm although is d ifficult to assess on CT. There is a small residualamount of pleural fluid as well as atelectasis along the left diaphragm. Thereis perirectal stranding and presacr al edema.Assessment: Sepsis. Aspiration pneumonia. Acute respiratory failure wi th hypoxia and hypercapnia. Acute COPD exacerbation. Dysphagia. Atelectasis. Pleural effusion. Plan:1. Continue IV zosyn2. Follow cultures.Mireya Gonzalez DSeptember PM Name Value Range Interpretation Code Description Data [facility] rce(s) Supporting Document(s ) ID Date Data Source [id number] 12/21/2018 07:27:55 PM EDT [facility] Bedside and Verbal shift change report g iven to Shira beatty RN (oncomingnurse) by Noemy Molina RN(offgoing nu rse). Report given with SBAR, Kardex, Intake/Output, MAR and RecentResults. Name Value Range Interpretation Code Description Data [facility] rce(s) Supporting Document(s ) ID Date Data Source [id number] 12/21/2018 06:24:37 PM EDT [facility] Name Value Range Interpretation Description Data Sup porting Code Source(s) Document(s ) Glucose 110 MG/DL 65-110 [facility] [Mass/volume] Taoist in Blood by Hospital Automated test strip ID Date Data Source [id number] 12/21/2018 04:04:01 PM EDT [facility] PULMONARY/ CCM- Consult NotePatient: Ivelisse Carlin Sex: male DOA: 12/12/2018Date of : 1 Age: 68 y.o. LOS: LOS: 9 daysHPI: kassie Carlin is a 68 y.o. 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 Authorizing Providerpantopr azole (PROTONIX) 40 mg granules for oral suspension 40 mg by Per G Tuberoute Kyleigh y (before breakfast). 11/28/18 Yes Mili Hills, DObudesonide (PULMICORT) 0.5 mg /2 mL nbsp 2 mL by Nebulization route two (2) timesa day for 30 days. 11/27/18 12/27/18 Yes Mili Hills, DOmultivitamin (ONE A DAY) tablet Take 1 Tab by mouth daily. Yes Provider,Historicalclorazepate (TRANXENE) 3.75 mg tablet Take by mouth nightly. Yes Provider,Historicalalbuterol-ipratropium (DUO-NEB) 2.5 mg-0.5 mg/3 ml nebu 3 mL by Nebulizationroute every six (6) hours as needed. Yes Provider, HistoricallamoTRIgine (LAMICTAL) 25 mg t ablet Take 50 mg by mouth two (2) times a day.Yes Provider, Historicalcinacalcet ( SENSIPAR) 30 mg tablet Take 60 mg by mouth daily. Yes Provider,Historicalvalproat e (DEPAKENE) 250 mg/5 mL syrup Take 750 mg by mouth two (2) times a day.Yes Provider, HistoricalNo Known AllergiesHistory reviewed. No pertinent surgical history.History re viewed. No pertinent family history.Social HistorySocioeconomic History Marital st atus: SINGLE Spouse name: Not on file Number of children: Not on file Years o f education: Not on file Highest education level: Not on fileTobacco Use Smoking s tatus: Never Smoker Smokeless tobacco: Never UsedSubstance and Sexual Activity Alcoh ol use: No Drug use: NoReview of SystemsPertinent items are noted in the History of Present Illness.Physical Exam:Current medications:Current Facilit y-Administered Medications: [START ON 12/22/2018] methylPREDNISolone (PF) (SOLU- MEDROL) injection 20 mg, 20mg, IntraVENous, PCL, Stella Hamilton MD haloperidol la ctate (HALDOL) injection 2 mg, 2 mg, IntraVENous, Q6H PRN,Stella Hamilton MD acetaminophen (TYLENOL) solution 650 mg, 650 mg, Per NG tube, Q4H PRN,Patricio Hills DO, 650 mg at 12/19/18 1818 oxyCODONE-acetaminophen (PERCOCET) 5-325 mg per tablet 1 Tab, 1 Tab, Oral,Q8H PRN, Oralia Frankel MD, 1 Tab at 12/21/18 112 3 albuterol-ipratropium (DUO-NEB) 2.5 MG-0.5 MG/3 ML, 3 mL, Nebulization, Q4HP RN, Mili Hills DO, 3 mL at 12/16/18 0417 potassium, sodium phosphates (KISHA TRA-PHOS) packet 1 Packet, 1 Packet, Oral,QID, Krystian Monae MD, 1 Packet at 12/21/18 1237 acetylcysteine (MUCOMYST) 100 mg/mL (10 %) nebulizer solution 200 mg, 2 mL,Nebulization, BID RT, Mili Hills DO, 200 mg at 12/21/18 0753 a lbuterol-ipratropium (DUO-NEB) 2.5 MG-0.5 MG/3 ML, 3 mL, Nebulization, Q6HRT, Yonatan onMili DO, 3 mL at 12/21/18 1405 bacitracin 500 unit/gram packet 1 Packet , 1 Packet, Topical, BID, Mili Hills DO, 1 Packet at 12/21/18 0849 piperacillin -tazobactam (ZOSYN) 3.375 g in 0.9% sodium chloride (MBP/ADV) 100mL MBP, 3.375 g, I ntraVENous, Q8H, Van Plunkett MD, Last Rate: 25 mL/hr at12/21/18 1228, 3.375 g at 12/21/18 1228 budesonide (PULMICORT) 500 mcg/2 ml nebulizer suspension, 500 mcg,N ebulization, BID RT, Van Plunkett MD, 500 mcg at 12/21/18 0752 lamoTRIgine (LaMI Ctal) tablet 50 mg, 50 mg, Per G Tube, BID, Van Plunkett MD, 50 mg at 12/21/18 084 8 valproic acid (as sodium salt) (DEPAKENE) 250 mg/5 mL (5 mL) oral [id number] mg, 750 mg, Per G Tube, BID, Van Plunkett MD, 750 mg at 12/21/18 0849 cinacalcet (SE NSIPAR) tablet 60 mg, 60 mg, Oral, DAILY, Van Plunkett MD,60 mg at 12/21/18 084 8 pantoprazole (PROTONIX) granules for oral suspension 40 mg, 40 mg, Per GTube, ACB, Van Plunkett MD, 40 mg at 12/21/18 0849 heparin (porcine) injection 5,000 Units, 5,000 Units, SubCUTAneous, Q12H,Van Plunkett MD, Stopped at 12/22/18 0000 sodium chloride (NS) flush 5-10 mL, 5- 10 mL, IntraVENous, PRN, Van Plunkett MDDataV isit VitalsBP 114/90 (BP 1 Location: Left arm, BP Patient Position: At rest)Pulse 67Temp 98 F (36.7 C)Resp 18Ht 5' 2" (1.575 m)Wt 63.3 kg (139 lb 9.6 oz)SpO2 95%BMI 25.53 kg/m Intake and Output:Date 12/20/18699 - 12/21/1865812/21/18699 - 01/01 0659Shift 3548-8418 7363-3213 24 Hour Total 1476-3625 2515-5433 24 Hour TotalI NTAKEI.V.(mL/kg/hr) 100(0.1) 100(0.1) Volume (piperacillin-tazobactam (ZOSYN) 3.375 g in 0.9% sodium chloride(MBP/ADV) 100 mL MBP) 100 100NG/GT 85 650 735 560 56 0 Water Flush Volume (mL) (PEG/Gastrostomy Tube 12/12/18) 85 170 255 170 170 Medi cation Volume (PEG/Gastrostomy Tube 12/12/18) 150 150 Intake (ml) (PEG/Gastrostom y Tube 12/12/18) 480 480 240 240Shift Total(mL/kg) 185(2.9) 650(10.3) 835(13.2 ) 560(8.8) 560(8.8)OUTPUTUrine(mL/kg/hr) 500(0.7) 350(0.5) 850(0.6) Urine Voided 500 350 850Drains 120 70 190 Output (ml) (Pleural Catheter/Drain 12/19/18 Left) 120 70 190Stool Stool Occurrence(s) 1 x 1 xShift Total(mL/kg) 620(9.8) 420(6.6) 1040(16.4)NET -435 230 -205 560 560Weight (kg) 63.3 63.3 63.3 63.3 63.3 63.3Pulse OX:SpO2 Readings from Last 6 Encounters:12/21/18 95%11/27/18 91%09/25 96%@LASTSAO2(6)@PHYSICAL EXAM:General: Lethargic,responding.Head: Normocephal ic, without obvious abnormality, atraumatic.Eyes: Conjunctivae clear, a nicteric sclerae. Pupils are equalNose: Nares normal. No drainage or sinus tende rness.Throat: Lips, mucosa, and tongue normal. No ThrushNeck: Supple, symmetr ical, no adenopathy, thyroid: non tender no carotid bruit and no JVD.Back: Symmet rodger, No CVA tenderness.Lungs: Scattered rhonchi,Chest wall: No tenderness or de formity. No Accessory muscle use.Heart: Regular rate and rhythm, no murmur, rub or gallop.Abdomen: Soft, non-tender. Not distended. Bowel sounds normal. No mass esExtremities: Extremities normal, atraumatic, No cyanosis. No edema. No c lubbingSkin: Texture, turgor normal. No rashes or lesions. Not JaundicedLymph n odes: Cervical, supraclavicular normal.Neurologic: Lethargic.Most recent labs:Recent Labs WBC 9.2HGB 10.6*HCT 33.3*PLT 254Recent Labs 12/20/1902NA 141 149* 142K 4.5 4.5 4.4CL 100 102 100CO2 36* 36 * 39*GLU 142* 123* 125*BUN 22* 23* 18CREA 0.45* 0.48* 0.40*CA 8.2* 8.7 8.8MG 2.1 2 .7* 2.1PHOS 3.9 3.9 3.6ALB 2.1* 2.2* 2.1*INR -- -- 1.1No results for input(s): PH, PCO2, PO2, HCO3, FIO2 in the last 72 hours.ABG:No results for input(s): PH, P CO2, PO2, HCO3, FIO2 in the last 72 hours.Cultures:No results found for: [employer] SLab ResultsComponent Value Date/Time Culture result: NO GROWTH 2 DAYS 12/19/2018 12:3 0 PM Culture result: NO GROWTH 2 DAYS 12/19/2018 12:30 PM Culture result: NO G SHASHAKN 1 DAY 12/12/2018 08:04 PM Culture result: NO GROWTH 5 DAYS 12/12/2018 07:4 0 PM Culture result: NO GROWTH 5 DAYS 12/12/2018 07:40 PM Culture result: NO G SHASHANK 2 DAYS 11/20/2018 09:00 AM Culture result: NO GROWTH 5 DAYS 11/07/2018 08:1 0 PM Culture result: NO GROWTH 5 DAYS 11/07/2018 08:00 PMImages:Cta Chest W Or W Wo ContResult Date: 11/08/2018Examination: CTA Chest ? PE angiography History: Hypo magdy; rule out pneumoniaversus pulmonary embolism Priors: None Technique: Low-d ose, multiplanar,helical CTA chest was performed with bolus IV injection from lung apices tobases. 3D-reformatted images were obtained and reviewed on a dedicate d viewingworkstation and directly supervised. Contrast: A total of 71 mL of Isovue-370 was administered intravenously for this procedure. Findings: No evidence ofpulmo nary embolism is seen. There is decreased size of the right hemithorax fromchronic scarring and retraction with mediastinal shift left to right.Additional area of c onsolidation is seen in the right lower lobe and suggestssuperimposed pneumonia with subsegmental atelectasis. Subsegmental atelectasisis also noted in the left jorge g base, with pleural parenchymal scarring. Lowlung volumes are seen. No pneumothora x seen. Aorta normal in caliber withoutaneurysm or dissection. Mediastin um no adenopathy. Mediastinal shift is seen inthe left and right as a result of chr onic changes in the right hemithorax.Heart shows no chamber enlargement or pericard ial effusion. No acute fracturesseen in the bony thorax, sternum, manubrium and rib cage. Multiple compressiondeformities are seen in the mid and lower thoracic spine , with superimposedspondyloarthropathy. Cannot exclude acute fracture.Impression : No evidence of pulmonary embolism Right lower lobe pneumoniasuggested. Incidenta l scarring and retraction in the right hemithorax fromremote/chronic inflammato ry disease and/or trauma. Bibasilar subsegmentalatelectasis. Report Electron ically Signed By: Pawel Zafar M.D. -11/08/2018 12:40 AMXr Chest PortResult D ate: 11/07/2018XR CHEST PORT CLINICAL INDICATION PROVIDED:. "sob." COMPARISON: . 09/26/2015.FINDINGS:. The pericardial/cardiac silhouette is enlarg ed in the transversedimension. There is no pulmonary vascular congestion or interst itial edema.Linear density in the left lung base and faint densities in the right mi d tolower lung likely represent atelectasis. There is no lobar consolidation oreffusi on. There is no pneumothorax.IMPRESSION:. Bilateral lower lung atelectasis. No donna dence of consolidation oreffusion.Assessment/PlanActive Problem s: Pneumonia (11/08/2018) Sepsis due to undetermined organism (HCC) (12/12/2018) Acute resp failure combined, pneumonia acute copd exacerbationPLAN,Monitoring,bipap p rn for resp distressChest percussionss/p left pig tail catheterIvabx as per id,Iv ster oids taperbipap prn and at night.NebS/p peg,feeding started.D/w nursing staff,MARICEL Saldivarept2018The billing code submitted in association with this evaluation also includes thetime to review patient's prior records, communicate wit h the physician team,obtain corroborating data, and discuss the risk and benefits of the proposedmanagement plan with the patient and their family >30 minutes. Name Value Range Interpretation Code Description Data Harriett rce(s) Supporting Document(s ) ID Date Data Source [id number] 12/21/2018 02:03:52 PM EDT [facility] Name Value Range Interpretation Description Data Sup porting Code Source(s) Document(s ) Glucose 112 MG/DL 65-110 Above high normal [facility] [Mass/volume] Taoist in Blood by Hospital Automated test strip ID Date Data Source [id number] 12/21/2018 01:31:29 PM EDT [facility] History: ? Maturity of g-tube tractTechn ique:CT of the abdomen and pelvis was performed from the dome of the diaphragm tothepubic symphysis without oral or intravenous contrast with dose loweringt echniques. Sagittal and coronal reconstructions were performed. Evaluati on ofsolid abdominal viscera is compromised by by the lack of intravenous contrast.E valuation of the bowel loops is compromised lack of oral contrast.All CT [facility] at [facility] are performed using dose optimization techniqueasappropriate to a performed exam, to include automated exposure control,adjustment of the mA an d/or kV according to patient size (includingappropriatematching first site -specific examinations), or use of iterative reconstructiontechnique. Comparison: CT scan of the chest performed 12/19/18Findings:There is a small right pl eural effusion with adjacent atelectasis. There isminimal left pleural fluid with adjacent atelectasis. There is a pigtailcatheter again identified on the left. The exact location of this catheter isdifficult to ascertain benefits above the diaphragm to below the diaphragm. Ontoday's study the tip appears to be lo cated below the diaphragm.There is a small right pleural effusion with adjacent ate lectasis.There is a G-tube identified in the stomach.The liver, gallbladder, spleen, pancreas, kidneys and adrenal glands areunremarkable. No abdominal, pelvic or inguinal lymphadenopathy is identified. No freeintraperitoneal fluid is noted. Ther e is a ventral wall hernia containing loops of what appear to be smallbowelhowever a re difficult to follow. There is mild perirectal stranding andpresacral edema correlate clinically. No dilated loops of bowel areidentified.There is mild divert iculosis of the colon.The prostate, bladder and seminal vesicles appear unremarkable .There are streak artifact obscuring portions of the pelvis due to a left hipORIF.Ther e is subcutaneous gas identified along the right lower anterior pelvicwall.IMPRESSI ON: There is a G-tube identified in the stomach.There is a tail catheter identif ied on the left. The tip appears to be locatedbelow the diaphragm although is d ifficult to assess on CT. There is a smallresidual amount of pleural fluid as well as atelectasis along the leftdiaphragm.There is perirectal strand ing and presacral edema. Signing date/time: 12/21/2018 1:31 PMSigned by: Devang DOE Name Value Range Interpretation Code Description Data [facility] rce(s) Supporting Document(s ) ID Date Data Source [id number] 12/21/2018 12:27:03 PM EDT [facility] Ct abd/pelvis Done Name Value Range Interpretation Code Description Data [facility] rce(s) Supporting Document(s ) ID Date Data Source [id number] 12/21/2018 11:25:06 AM EDT [facility] Progress NOTENAME: Evelio JaradbeinDOB : 1950MRN: [id number]/Time: 12/21/2018 9:15 AMHISTORY OF PRESENT ILLNE SS:Evelio is a 68 y.o. male who presents from [facility] with medical history ofDysphag ia with recent admission s/p surgical peg placement on 11/17/18, severeintellectual disability, Chronic respiratory failure, hyperparathyroidunspecified, personal h/ o pulmonary embolus, anxiety disorder, kyphosis andschizophrenia.The patient is unable to provide a history due to his mental disability. Thenursing home staf f reporting pt had a cough, fever to 103 F and hypoxia. ChestXR showed suspicion f or a Pneumonia. Pt was given Iv Cefepime, Vancomycin andSolu- medrol. Pt was later found minimally responsive and was sent to the ED. In the ED, chest xr showed some streaky changes at the lung bases. ABG showedpH 7.40/55/56/34/ O2 SAT 90 % on 2 LPM and Lactic Acid was elevated to 5.5. Thepatient was given Iv Zosyn, Solu-Medr ol, nebulizer and IVF.Repeat lactic acid was still elevated at 5.3.The patient was ad mitted with enxounter diagnosis of Sepsis due to unspecifiedorganism, Pnermonia, unspe cified and COPD exacerbation.The patient was seen and examined at bedside he is less lethargic, nonverbbal.He is coughing. 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 No pertinent surgical history.Social HistoryTobacco Use Smoking status: Nilo uribe Smoker Smokeless tobacco: Never UsedSubstance Use Topics Alcohol use: N oHistory reviewed. No pertinent family history.No Known AllergiesPrior to Admis elio medicationsMedication Sig Start Date End Date Taking? Authorizing Providerpantopr azole (PROTONIX) 40 mg granules for oral suspension 40 mg by Per G Tuberoute Kyleigh y (before breakfast). 11/28/18 Yes Mili Hills DObudesonide (PULMICORT) 0.5 mg /2 mL nbsp 2 mL by Nebulization route two (2) timesa day for 30 days. 11/27/18 12/27/18 Yes Mili Hills DOmultivitamin (ONE A DAY) tablet Take 1 Tab by mouth daily. Yes Provider,Historicalclorazepate (TRANXENE) 3.75 mg tablet Take by mouth nightly. Yes Provider,Historicalalbuterol-ipratropium (DUO-NEB) 2.5 mg-0.5 mg/3 ml nebu 3 mL by Nebulizationroute every six (6) hours as needed. Yes Provider, HistoricallamoTRIgine (LAMICTAL) 25 mg t ablet Take 50 mg by mouth two (2) times a day.Yes Provider, Historicalcinacalcet ( SENSIPAR) 30 mg tablet Take 60 mg by mouth daily. Yes Provider,Historicalvalproat e (DEPAKENE) 250 mg/5 mL syrup Take 750 mg by mouth two (2) times a day.Yes Provider, HistoricalREVIEW OF SYSTEMS: [x] Unable to obtain ROS due to patient factors.Object britni:VITALS:Visit VitalsBP 103/70 (BP 1 Location: Left arm)Pulse (!) 55Temp 97.2 F (36.2 C)Resp 20Ht 5' 2" (1.575 m)Wt 63.3 kg (139 lb 9.6 oz)SpO2 98%BMI 25.53 kg/m PHYSICAL EXAM:General: Alert, cooperative, no distress, appears stated age.Head: Normocephalic, without obvious abnormality, atraumatic.Eyes: Conjunct ivae clear, anicteric sclerae. Pupils are equalThroat: Lips, mucosa, and tongue normal. No ThrushNeck: Supple, symmetrical, no adenopathy, no carotid bruit and no JVD.Back: Symmetric, No CVA tenderness.Lungs: Bilateral air entry .. Decreased breath sounds RUL. No Wheezing orRhonchi. No rales.Chest wall: No Acc essory muscle use.Heart: Regular rate and rhythm, no murmur, or rubAbdomen: Pos itive peg, non-tender. Not distended. Bowel sounds normal. NomassesExtremities: Extr emities normal, atraumatic, No cyanosis. No edema. No clubbingSkin: Warm and dry . No rashes or lesions. Not JaundicedLymph nodes: Cervical, supraclavicular normal. Psych: Not anxious or agitated.Neurologic: EOMs intact. No facial asymmetry. No aph greg or slurred speech.Generalized weakness, wheel chair bound., Alert and Awake, non verbal. .LAB DATA REVIEWED:Recent Results (from the past 24 hour(s))GLUCOSE, POC C ollection Time: 12/20/18 12:07 PMResult Value Ref Range Glucose, bedside 111 (H) 65 - 110 MG/DLGLUCOSE, POC Collection Time: 12/20/18 6:06 PMResult Value Ref Range Glucose, bedside 143 (H) 65 - 110 MG/DLGLUCOSE, POC Collection Time: 12/20 11:27 PMResult Value Ref Range Glucose, bedside 134 (H) 65 - 110 MG/DLRENAL FUNC TION PANEL Collection Time: 12/21/18 3:15 AMResult Value Ref Range Sodium 141 136 - 145 mmol/L Potassium 4.5 3.5 - 5.1 mmol/L Chloride 100 98 - 107 mmol/L CO2 36 (H) 21 - 32 mmol/L Anion gap 9 (L) 10 - 20 mmol/L Glucose 142 (H) 74 - 106 mg/dL BUN 22 (H ) 7 - 18 mg/dL Creatinine 0.45 (L) 0.70 - 1.30 mg/dL GFR est AA >60 >60 ml/min/1.7 3m2 GFR est non-AA >60 >60 ml/min/1.73m2 Calcium 8.2 (L) 8.5 - 10.1 mg/dL Phospho tierra 3.9 2.5 - 4.9 mg/dL Albumin 2.1 (L) 3.5 - 4.7 g/dLMAGNESIUM Collection Time: 12/21 3:15 AMResult Value Ref Range Magnesium 2.1 1.6 - 2.6 mg/dLAssessment/Plan:Activ e Problems: Pneumonia (11/08/2018) Sepsis due to undetermined organism (HCC) (12/12) Acute Respiratory Failure with hypercapnia and Hypoxia/ improved Metabo lic Acidosis - Resolving Sepsis -poa Metabolic Encephalopathy/ improved Aspir ation Pneumonia Acute COPD exacerbation Dysphagia s/p surgically place,emt of pe g Mentally challenged Seizure disorder Hyperparathyroid worsening pleural effus ion bilaterallyS/p thoracentesis PLAN:Risk of deterioration: []Low []Moderate [x] High1. Keep in [place] to Dr Monae for thoracentesis which will be done today2. IV fluids3.O2 NC/BIPAP4. Iv Zosyn5. Pulmonary follow up6. ID follow up7. CT chest , bilateral Pleural effusion8. Restart officer captain medications via peg Covering for Admitting Physician: Mireya Magaña December 21, 2018 9:15 AM Name Value Range Interpretation Code Description Data [facility] rce(s) Supporting Document(s ) ID Date Data Source [id number] 12/21/2018 09:21:13 AM EDT [facility] Patient non-verbal.Visit VitalsBP 103/70 (BP 1 Location: Left arm)Pulse (!) 55Temp 97.2 F (36.2 C)Resp 20Ht 5' 2" (1.575 m)Wt 63.3 kg (139 lb 9.6 oz)SpO2 98%BMI 25.53 kg/m Gen awake, alertAbd soft, NT, g-tub e in placeImp: aspiration with g-tube feedings.Plan: tentatively on the schedu le tomorrow for placement of a jejunostomy tubevia PEG tube (JET-PEG) so that feedi ngs can be administered directly into thejejunum. However today's O2 sats are ~ 90-92% so will need to first ensurestability from a respiratory stand point. Name Value Range Interpretation Code Description Data [facility] ) ID Date Data Source [id number] 12/21/2018 07:38:33 AM EDT [facility] Bedside and Verbal shift change report g iven to Noemy Molina, NANCY (oncomingnurse) by Leann Ryan RN(offgoing nurse). Repor t given with SBAR, Kardex, Intake/Output, MAR and RecentResults. Name Value Range Interpretation Code Description Data [facility] Supporting Document(s ) ID Date Data Source [id number] 12/21/2018 07:00:14 AM EDT [facility] Review BiPAP settings, alarms and skin a dhesive with next shift RT Hanny Tellez .BiPAP wiped down with bleach wipes. Name Value Range Interpretation Code Description Data [facility] rce(s) Supporting Document(s ) ID Date Data Source [id number] 12/21/2018 04:13:05 AM EDT [facility] Name Value Range Interpretation Description Data Sup porting Code Source(s) Document(s ) Sodium 141 136-145 [facility] [Moles/volume] mmol/L [facility] in Serum or Hospital Plasma Potassium 4.5 3.5-5.1 [facility] [Moles/volume] mmol/L [facility] in Serum or Hospital Plasma Chloride 100 98-107 [facility] [Moles/volume] mmol/L [facility] in Serum or Hospital Plasma Carbon 36 21-32 Above high normal [facility] dioxide, total mmol/L [facility] [Moles/volume] Hospital in Serum or Plasma Anion gap in 9 mmol/L 10-20 Below low normal [facility] od Serum or [facility] Plasma Hospital Glucose 142 74-106 Above high normal [facility] [Mass/volume] mg/dL [facility] in Serum or Hospital Plasma Urea nitrogen 22 mg/dL 7-18 Above high normal [facility] [Mass/volume] [facility] in Serum or Hospital Plasma Creatinine 0.45 0.70-1.3 Below low normal [facility] [Mass/volume] mg/dL 0 [facility] in Serum or Hospital Plasma Glomerular >60 [facility] filtration Taoist rate/1.73 sq M Hospital predicted among blacks [Volume Rate/Area] in Serum or Plasma by Creatinine-bas ed formula (MDRD) Glomerular >60 [facility] filtration Taoist rate/1.73 sq M Hospital predicted among non-blacks [Volume Rate/Area] in Serum or Plasma by Creatinine-bas ed formula (MDRD) Calcium 8.2 8.5-10.1 Below low normal [facility] [Mass/volume] mg/dL [facility] in Serum or Hospital Plasma Phosphate 3.9 2.5-4.9 [facility] [Mass/volume] mg/dL [facility] in Serum or Hospital Plasma Albumin 2.1 g/dL 3.5-4.7 Below low normal [facility] [Mass/volume] [facility] in Serum or Hospital Plasma by Bromocresol purple (BCP) dye binding method ID Date Data Source [id number] 12/21/2018 04:13:05 AM EDT [facility] Name Value Range Interpretation Description Data Sup porting Code Source(s) Document(s ) Magnesium 2.1 mg/dL 1.6-2.6 [facility] [Mass/volume] [facility] in Serum or Hospital Plasma ID Date Data Source [id number] 12/20/2018 11:46:12 PM EDT [facility] Name Value Range Interpretation Description Data Sup porting Code Source(s) Document(s ) Glucose 134 MG/DL 65-110 Above high normal [facility] [Mass/volume] Taoist in Blood by Hospital Automated test strip ID Date Data Source [id number] 12/20/2018 11:19:58 PM EDT [facility] Problem: Pneumonia: Day 1Goal: Medicatio nsOutcome: Progressing Towards GoalProblem: Non-Violent RestraintsGoal: Non-violent Restaints:Standard InterventionsOutcome: Progressing Towards GoalGoal: Non-violen t Restraints:Patient InterventionsOutcome: Progressing Towards Goal Name Value Range Interpretation Code Description Data [facility] rce(s) Supporting Document(s ) ID Date Data Source [id number] 12/20/2018 07:55:53 PM EDT [facility] Bedside and Verbal shift change report g iven to Leann Ryan RN (oncoming nurse)by Chantelle Beltran RN(offgoing nurse). Rep ort given with SBAR, Kardex, Intake/Output, MAR and RecentResults. Name Value Range Interpretation Code Description Data [facility] rce(s) Supporting Document(s ) ID Date Data Source [id number] 12/20/2018 06:28:54 PM EDT [facility] ID Progress Note12/20/2018Subjective:Patie nt is non verbal,unable to provide any historyAfebrile, WBC down to 9.2S/p left pigtail catheter insertion for pleural effusion 12/19/18, gram stain withfew wbc, culture pendingObjective:Vitals:Patient Vitals for the past 24 hrs: BP Temp Puls e Resp SpO2 Vuftaz48/07/19 0722 (!) 131/96 99.3 F (37.4 C) 70 - 93 % -12/20/18 05 12 - - - - - 63.3 kg (139 lb 8 oz)12/20/18 0400 125/80 98 F (36.7 C) 92 18 95 % - 12/20/18 0129 - - - - 94 % -12/19/18 2337 127/81 97.6 F (36.4 C) 96 19 - -1999 - - - - 93 % -12/19/18 1935 121/72 98 F (36.7 C) 93 18 - -12/19/18 1517 135/ 72 98.5 F (36.9 C) 80 22 - -12/19/18 1247 150/88 - 74 24 94 % -12/19/18 1147 135/8 1 - 72 24 93 % -Tmax: Temp (24hrs), Av.3 F (36.8 C), Min:97.6 F (36.4 C), Max :99.3 F(37.4 C)Physical Exam:General: Awake non verbal, cooperative, no distre ssMouth/Throat: Dry oral, mucosaNeck: Supple, symmetrical, trachea midline, no adenopa thyLungs: Decrease breath sounds at bases. +Heart: Regular rate and rhythm, S1, S2 normal, no murmurAbdomen: Soft, non-tender. Bowel sounds normal. No mass es, No organomegaly.+feeding tubeBack: No CVA tenderness.Extremities: Extremities normal, atraumatic, no cyanosis or edema.Pulses: 2+ and symmetric all extre mities.Skin: Skin color, texture, turgor normal. No rashes or lesionsCurrent Faci lity-Administered MedicationsMedication Dose Route Frequency acetaminophen (TYLENOL) solution 650 mg 650 mg Per NG tube Q4H PRN oxyCODONE-acetaminophen (PERCOCET) 5-325 mg per tablet 1 Tab 1 Tab Oral Q8HPRN methylPREDNISolone (PF) (SOLU-MEDROL) in jection 40 mg 40 mg IntraVENous Q8H albuterol-ipratropium (DUO-NEB) 2.5 MG-0 .5 MG/3 ML 3 mL Nebulization Q4H PRN potassium, sodium phosphates (NEUTRA-JOCY S) packet 1 Packet 1 Packet Oral QID acetylcysteine (MUCOMYST) 100 mg/mL (10 %) nebulizer solution 200 mg 2 mLNebulization BID RT albuterol-ipratro pium (DUO-NEB) 2.5 MG-0.5 MG/3 ML 3 mL Nebulization Q6H RT bacitracin 500 unit /gram packet 1 Packet 1 Packet Topical BID piperacillin-tazobactam (ZOSYN) 3.375 g in 0.9% sodium chloride (MBP/ADV) 100mL MBP 3.375 g IntraVENous Q8H budesonide (PUL MICORT) 500 mcg/2 ml nebulizer suspension 500 mcg NebulizationBID RT lamoTRIgine (LaMICtal) tablet 50 mg 50 mg Per G Tube BID valproic acid (as sodium salt) (DEPAKEN E) 250 mg/5 mL (5 mL) oral solution 750mg 750 mg Per G Tube BID cinacalcet (SENSI PAR) tablet 60 mg 60 mg Oral DAILY pantoprazole (PROTONIX) granules for ora l suspension 40 mg 40 mg Per G TubeACB heparin (porcine) injection 5,000 Units 5,000 Units SubCUTAneous Q12H sodium chloride (NS) flush 5-10 mL 5-10 mL Int raVENous PRNLabs:Recent Labs 12/19/1902WBC 9.2 -- - -HGB 10.6* -- --PLT 254 -- --BUN 23* 18 17CREA 0.48* 0.40* 0.40*Cultures:Lab Res ultsComponent Value Date/Time Culture result: PENDING 12/19/2018 12:30 PM Culture resu lt: NO GROWTH 1 DAY 12/12/2018 08:04 PM Culture result: NO GROWTH 5 DAYS 019 07:40 PM Culture result: NO GROWTH 5 DAYS 12/12/2018 07:40 PMRadiology:Ct Thoracen tesis Insrt Chest TubeResult Date: 12/19/2018History: Pleural effusion. PROCE DURE: After being informed of the risks,benefits, and potential alternativ es procedure informed consent was obtained.The patient was placed on the t able in the [id number] decubitus position.CT scanning was performed locat ion was chosen over the left flank. However, dueto the significant amount of patient motion and breathing motion was difficultto accurately assess a location for percuta neous paracentesis. Therefore, thiswas performed manually. After the chosen reg ion was prepped and draped in thenormal sterile fashion using maximum sterile ba rrier technique a lidocaineneedle was placed in the skin. This appeared to be in good position. Lidocainewas then used to anesthetize the skin and subcutaneous ti ssues in this location.Attempts were made to pass an 8 Congolese pigtail catheter throug h this location.However, patient continuous motion was significant as well as excess ivebreathing during the procedure. The catheter was placed at the same interspa ceas well as marked on the prior CT sequence however, due to the excessive patientmot ion the catheter was far more inferior within the chest that on the priorsequences. Th e catheter appeared to enter the hemiabdomen on the left from theleft chest. The cath eter was then pulled back to position where clear yellowfluid was aspirated. It was then sewn in position However, It appeared tomigrate forward and on the CT scanning appeared to again transgress thediaphragm. It was therefore pulled back to a point where only a clear fluid wasaspirated and respiratory variation was noted within t he tube. It was then sewnin position using 2-0 silk sutures. FINDINGS: Initial CT s debora revealed amoderate left pleural effusion. Attempts to nancy an adequate l ocation forpercutaneous thoracentesis were quite limited due to excessive patient m otionand breathing throughout the procedure. A location that appear to be a safelocat ion was marked. However, when the catheter was placed in this sameinterspace as wel l as marked the catheter appeared to be far more inferiorwithin the hemithorax than that seen previously. It appeared to enter the lefthemithorax inferiorly and transg ress the diaphragm with no evidence pathologicsequela. Therefore, it was pul led back into the pleural space for adequatedrainage. 130 cc of lightly bloo d-tinged fluid was aspirated. The catheter wasattached to a Pleur-evac and wall suc tion.IMPRESSION: Left-sided thoracentesis described above.Assessment: Sepsis. As piration pneumonia. Acute respiratory failure with hypoxia and hypercapnia. A cute COPD exacerbation. Dysphagia. Atelectasis. Pleural effusion. Plan: 1. Continue IV zosyn2. Follow cultures.MARICEL Gonzalezeptember 7 AM Name Value Range Interpretation Code Description Data [facility] rce(s) Supporting Document(s ) ID Date Data Source [id number] 12/20/2018 06:18:16 PM EDT [facility] Name Value Range Interpretation Description Data Sup porting Code Source(s) Document(s ) Glucose 143 MG/DL 65-110 Above high normal [facility] [Mass/volume] [facility] in Blood by Hospital Automated test strip ID Date Data Source [id number] 12/20/2018 12:45:48 PM EDT [facility] PULMONARY/ CCM- Consult NotePatient: Ivelisse Carlin Sex: male DOA: 12/12/2018Date of : 1 Age: 68 y.o. LOS: LOS: 8 daysHPI: kassie Carlin is a 68 y.o. 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 Authorizing Providerpantopr azole (PROTONIX) 40 mg granules for oral suspension 40 mg by Per G Tuberoute Kyleigh y (before breakfast). 11/28/18 Yes Mili Hills, DObudesonide (PULMICORT) 0.5 mg /2 mL nbsp 2 mL by Nebulization route two (2) timesa day for 30 days. 11/27/18 12/27/18 Yes Mili Hills DOmultivitamin (ONE A DAY) tablet Take 1 Tab by mouth daily. Yes Provider,Historicalclorazepate (TRANXENE) 3.75 mg tablet Take by mouth nightly. Yes Provider,Historicalalbuterol-ipratropium (DUO-NEB) 2.5 mg-0.5 mg/3 ml nebu 3 mL by Nebulizationroute every six (6) hours as needed. Yes Provider, HistoricallamoTRIgine (LAMICTAL) 25 mg t ablet Take 50 mg by mouth two (2) times a day.Yes Provider, Historicalcinacalcet ( SENSIPAR) 30 mg tablet Take 60 mg by mouth daily. Yes Provider,Historicalvalproat e (DEPAKENE) 250 mg/5 mL syrup Take 750 mg by mouth two (2) times a day.Yes Provider, HistoricalNo Known AllergiesHistory reviewed. No pertinent surgical history.History re viewed. No pertinent family history.Social HistorySocioeconomic History Marital st atus: SINGLE Spouse name: Not on file Number of children: Not on file Years o f education: Not on file Highest education level: Not on fileTobacco Use Smoking s tatus: Never Smoker Smokeless tobacco: Never UsedSubstance and Sexual Activity Alcoh ol use: No Drug use: NoReview of SystemsPertinent items are noted in the History of Present Illness.Physical Exam:Current medications:Current Facilit y-Administered Medications: acetaminophen (TYLENOL) solution 650 mg, 650 mg, Per N G tube, Q4H PRN,Mili Hills, DO, 650 mg at 12/19/18 1818 oxyCODONE-acetaminoph en (PERCOCET) 5-325 mg per tablet 1 Tab, 1 Tab, Oral,Q8H PRN, Oralia Frankel MD, 1 Tab at 12/19/18 2150 methylPREDNISolone (PF) (SOLU-MEDROL) injection 40 mg, 40 m g, IntraVENous,Q8H, Krystian Monae MD, 40 mg at 12/20/18 0610 albuterol-ipratropium (DUO-NEB) 2.5 MG-0.5 MG/3 ML, 3 mL, Nebulization, Q4HPRN, Mili Hills, Gaston O, 3 mL at 12/16/18 0417 potassium, sodium phosphates (NEUTRA-PHOS) packet 1 Packet , 1 Packet, Oral,QIDDov Nihal, MD, 1 Packet at 12/20/18 1054 acetylcysteine (MUCOMYST) 100 mg/mL (10 %) nebulizer solution 200 mg, 2 mL,Nebulization, BID RT, Mili Hills DO, 200 mg at 12/20/18 0750 albuterol-ipratropium (DUO-NEB) 2 .5 MG-0.5 MG/3 ML, 3 mL, Nebulization, Q6HRT, Mili Hills DO, 3 mL at 12/20/18 07 50 bacitracin 500 unit/gram packet 1 Packet, 1 Packet, Topical, BID, Eloisa Hills DO, 1 Packet at 12/20/18 1053 piperacillin-tazobactam (ZOSYN) 3.375 g in 0.9% sodium chloride (MBP/ADV) 100mL MBP, 3.375 g, IntraVENous, Q8H, Manuel Plunkett MD, Last Rate: 25 mL/hr at12/20/18 0307, 3.375 g at 12/20/18 0307 budesonide (P ULMICORT) 500 mcg/2 ml nebulizer suspension, 500 mcg,Nebulization, BID RT, Abdiel Plunkett MD, 500 mcg at 12/20/18 0750 lamoTRIgine (LaMICtal) tablet 50 mg, 50 mg, Per G Tube, BID, Van Plunkett MD, 50 mg at 12/20/18 1053 valproic acid (as sod ium salt) (DEPAKENE) 250 mg/5 mL (5 mL) oral sorgdnby764 mg, 750 mg, Per G Tube, BID, Van Plunkett MD, 750 mg at 12/20/18 1052 cinacalcet (SENSIPAR) tablet 60 mg, 60 mg, Oral, DAILY, Van Plunkett MD,60 mg at 12/20/18 1053 pantoprazole (PROTONIX) granules for oral suspension 40 mg, 40 mg, Per GTube, ACB, Van Plunkett MD, 40 m g at 12/20/18 1053 heparin (porcine) injection 5,000 Units, 5,000 Units, SubC UTAneous, Q12H,Van Plunkett MD, 5,000 Units at 12/20/18 0014 sodium chloride (NS) flush 5-10 mL, 5-10 mL, IntraVENous, PRN, Van Plunkett, ROSEMARYataVisit VitalsBP 119/69 (BP 1 Location: Right arm, BP Patient Position: At rest)Pulse 87Temp 97.5 F ( 36.4 C)Resp 16Ht 5' 2" (1.575 m)Wt 63.3 kg (139 lb 8 oz)SpO2 90%BMI 25.51 kg/m Inta ke and Output:Date 12/19/18699 - 12/20/1865812/20/18699 - 12/21/18 0659Shift 0131-2786 2147-7573 24 Hour Total 2837-1327 9953-2868 24 Hour TotalINTAKENG/GT 570 7 40 1310 Water Flush Volume (mL) (PEG/Gastrostomy Tube 12/12/18) 170 160 330 Medication Volume (PEG/Gastrostomy Tube 12/12/18) 100 100 Intake (ml) (PEG/Gas trostomy Tube 12/12/18) 400 480 880Shift Total(mL/kg) 570(9) 740(11.7) 1310(20.7) OUTPUTUrine(mL/kg/hr) 300(0.4) 200(0.3) 500(0.3) Urine Voided 300 200 500Drains 430 410 840 Output (ml) (Pleural Catheter/Drain 12/19/18 Left) 430 410 8 40Shift Total(mL/kg) 730(11.5) 610(9.6) 1340(21.2)NET -160 130 -30Weight (kg) 63 .5 63.3 63.3 63.3 63.3 63.3Pulse OX:SpO2 Readings from Last 6 Encounters:12/20/18 90%11/27/18 91%09/26/15 96%@LASTSAO2(6)@PHYSICAL EXAM:General: Lethargic,responding.Head: Normocephalic, without obvious abnormality, atraumatic. Eyes: Conjunctivae clear, anicteric sclerae. Pupils are equalNose: Nares n ormal. No drainage or sinus tenderness.Throat: Lips, mucosa, and tongue normal. No ThrushNeck: Supple, symmetrical, no adenopathy, thyroid: no n tender no carotid bruit and no JVD.Back: Symmetric, No CVA tenderness.Lungs: Scattered rhonchi,Chest wall: No tenderness or deformity. No Accessory muscle use.He art: Regular rate and rhythm, no murmur, rub or gallop.Abdomen: Soft, non-tende r. Not distended. Bowel sounds normal. No massesExtremities: Extremities normal, a traumatic, No cyanosis. No edema. No clubbingSkin: Texture, turgor normal . No rashes or lesions. Not JaundicedLymph nodes: Cervical, supraclavicular normal. Neurologic: Lethargic.Most recent labs:Recent Labs WBC 9.2HGB 10.6*HCT 33 .3*PLT 254Recent Labs 12/19/1902NA 149* 142 -- 140K 4.5 4.4 -- 4.5CL 102 100 -- 100CO2 36* 39* -- 34*GLU 123* 125* -- 140*BUN 23* 18 -- 17CREA 0.48* 0.40* -- 0.40*CA 8.7 8.8 -- 9.0MG 2. 7* 2.1 -- 2.2PHOS 3.9 3.6 -- 3.8ALB 2.2* 2.1* -- 2.2*INR -- 1.1 1.1 --Recent Labs 7.38PCO2 68*PO2 76*HCO3 40*ABG:Recent Labs 7.38P CO2 68*PO2 76*HCO3 40*Cultures:No results found for: CloudaccLab ResultsComponent Valu e Date/Time Culture result: NO GROWTH AFTER 17 HOURS 12/19/2018 12:30 PM Culture res ult: NO GROWTH 1 DAY 12/12/2018 08:04 PM Culture result: NO GROWTH 5 DAYS 019 07:40 PM Culture result: NO GROWTH 5 DAYS 12/12/2018 07:40 PM Culture result: NO G SHASHANK 2 DAYS 11/20/2018 09:00 AM Culture result: NO GROWTH 5 DAYS 11/07/2018 08:1 0 PM Culture result: NO GROWTH 5 DAYS 11/07/2018 08:00 PMImages:Cta Chest W Or W Wo ContResult Date: 11/08/2018Examination: CTA Chest ? PE angiography History: Hypo magdy; rule out pneumoniaversus pulmonary embolism Priors: None Technique: Low-d ose, multiplanar,helical CTA chest was performed with bolus IV injection from lung apices tobases. 3D-reformatted images were obtained and reviewed on a [employer] d viewingworkstation and directly supervised. Contrast: A total of 71 mL of Isovue-370 was administered intravenously for this procedure. Findings: No evidence ofpulmo nary embolism is seen. There is decreased size of the right hemithorax fromchronic scarring and retraction with mediastinal shift left to right.Additional area of c onsolidation is seen in the right lower lobe and suggestssuperimposed pneumonia with subsegmental atelectasis. Subsegmental atelectasisis also noted in the left jorge g base, with pleural parenchymal scarring. Lowlung volumes are seen. No pneumothora x seen. Aorta normal in caliber withoutaneurysm or dissection. Mediastin um no adenopathy. Mediastinal shift is seen inthe left and right as a result of chr onic changes in the right hemithorax.Heart shows no chamber enlargement or pericard ial effusion. No acute fracturesseen in the bony thorax, sternum, manubrium and rib cage. Multiple compressiondeformities are seen in the mid and lower thoracic spine , with superimposedspondyloarthropathy. Cannot exclude acute fracture.Impression : No evidence of pulmonary embolism Right lower lobe pneumoniasuggested. Incidenta l scarring and retraction in the right hemithorax fromremote/chronic inflammato ry disease and/or trauma. Bibasilar subsegmentalatelectasis. Report Electron ically Signed By: Pawel Zafar M.D. -11/08/2018 12:40 AMXr Chest PortResult D ate: 11/07/2018XR CHEST PORT CLINICAL INDICATION PROVIDED:. "sob." COMPARISON: . 09/26/2015.FINDINGS:. The pericardial/cardiac silhouette is enlarg ed in the transversedimension. There is no pulmonary vascular congestion or interst itial edema.Linear density in the left lung base and faint densities in the right mi d tolower lung likely represent atelectasis. There is no lobar consolidation oreffusi on. There is no pneumothorax.IMPRESSION:. Bilateral lower lung atelectasis. No donna dence of consolidation oreffusion.Assessment/PlanActive Problem s: Pneumonia (11/08/2018) Sepsis due to undetermined organism (HCC) (12/12/2018) Acute resp failure combined, pneumonia acute copd exacerbationPLAN,Monitoring,bipap p rn for resp distressChest percussionss/p left pig tail catheterIvabx as per id,Iv ster oids taperbipap prn and at night.NebS/p peg,feeding started.D/w nursing staff,d/ w dr ovalle/son in law proxy.MARICEL Munsoneptember 2018The billing code subm itted in association with this evaluation also includes thetime to review patient' s prior records, communicate with the physician team,obtain corroborating data , and discuss the risk and benefits of the proposedmanagement plan with the patient and their family >30 minutes. Name Value Range Interpretation Code Description Data Harriett rce(s) Supporting Document(s ) ID Date Data Source [id number] 12/20/2018 12:11:02 PM EDT [facility] Cpt done with percussor as per Md order. Pt sandhya well , no resp distress noted.[place]. Name Value Range Interpretation Code Description Data Harriett rce(s) Supporting Document(s ) ID Date Data Source [id number] 12/20/2018 12:42:59 PM EDT [facility] Name Value Range Interpretation Description Data Sup porting Code Source(s) Document(s ) Glucose 111 MG/DL 65-110 Above high normal [facility] [Mass/volume] Taoist in Blood by Hospital Automated test strip ID Date Data Source [id number] 12/20/2018 09:54:24 AM EDT [facility] Progress NOTENAME: Evelio JohnsoninDOB : 1950MRN: [id number]/Time: 12/20/2018 9:15 AMHISTORY OF PRESENT ILLNE SS:Evelio is a 68 y.o. male who presents from [facility] with medical history ofDysphag ia with recent admission s/p surgical peg placement on 11/17/18, severeintellectual disability, Chronic respiratory failure, hyperparathyroidunspecified, personal h/ o pulmonary embolus, anxiety disorder, kyphosis andschizophrenia.The patient is unable to provide a history due to his mental disability. Thenursing home staf f reporting pt had a cough, fever to 103 F and hypoxia. ChestXR showed suspicion f or a Pneumonia. Pt was given Iv Cefepime, Vancomycin andSolu- medrol. Pt was later found minimally responsive and was sent to the ED. In the ED, chest xr showed some streaky changes at the lung bases. ABG showedpH 7.40/55/56/34/ O2 SAT 90 % on 2 LPM and Lactic Acid was elevated to 5.5. Thepatient was given Iv Zosyn, Solu-Medr ol, nebulizer and IVF.Repeat lactic acid was still elevated at 5.3.The patient was ad mitted with enxounter diagnosis of Sepsis due to unspecifiedorganism, Pnermonia, unspe cified and COPD exacerbation.The patient was seen and examined at bedside he is less lethargic, nonverbbal.He is coughing. 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 No pertinent surgical history. Social HistoryTobacco Use Smoking status: Never Smoker Smokeless tobacco: Never U sedSubstance Use Topics Alcohol use: NoHistory reviewed. No pertinent family history.No Known AllergiesPrior to Admission medicationsMedication Sig Start Date End Date Taking? Authorizing Providerpantoprazole (PROTONIX) 40 mg gr anules for oral suspension 40 mg by Per G Tuberoute Daily (before breakfast). 11/28 Yes Mili Hills, DObudesonide (PULMICORT) 0.5 mg/2 mL nbsp 2 mL by Neb ulization route two (2) timesa day for 30 days. 11/27/18 12/27/18 Yes Cesar Hills, DOmultivitamin (ONE A DAY) tablet Take 1 Tab by mouth daily. Yes Provider,Histo ricalclorazepate (TRANXENE) 3.75 mg tablet Take by mouth nightly. Yes Provider,H istoricalalbuterol-ipratropium (DUO-NEB) 2.5 mg-0.5 mg/3 ml nebu 3 mL by Nebulization route every six (6) hours as needed. Yes Provider, HistoricallamoTRIgine (LAMICTA L) 25 mg tablet Take 50 mg by mouth two (2) times a day.Yes Provider, Historicalcina calcet (SENSIPAR) 30 mg tablet Take 60 mg by mouth daily. Yes Provider,Historicalva lproate (DEPAKENE) 250 mg/5 mL syrup Take 750 mg by mouth two (2) times a day.Yes Prov ider, HistoricalREVIEW OF SYSTEMS: [x] Unable to obtain ROS due to patient factors.Obj ective:VITALS:Visit VitalsBP (!) 131/96 (BP 1 Location: Left arm, BP Patient Position: At rest)Pulse 70Temp 99.3 F (37.4 C)Resp 18Ht 5' 2" (1.575 m)Wt 63.3 kg (139 lb 8 oz)SpO2 93%BMI 25.51 kg/m PHYSICAL EXAM:General: Alert, cooperative, no distress, appears stated age.Head: Normocephalic, without obvious abnormali ty, atraumatic.Eyes: Conjunctivae clear, anicteric sclerae. Pupils are equalThro at: Lips, mucosa, and tongue normal. No ThrushNeck: Supple, symmetrical, no ad enopathy, no carotid bruit and no JVD.Back: Symmetric, No CVA tenderness.Lungs: Bilateral air entry.. Decreased breath sounds RUL. No Wheezing orRhonchi. No rales.Chest wall: No Accessory muscle use.Heart: Regular rate and rhythm, n o murmur, or rubAbdomen: Positive peg, non-tender. Not distended. Bowel sounds normal. NomassesExtremities: Extremities normal, atraumatic, No cyanosis. No deepthi ma. No clubbingSkin: Warm and dry. No rashes or lesions. Not JaundicedLymph n odes: Cervical, supraclavicular normal.Psych: Not anxious or agitated.Neurologic: EOM s intact. No facial asymmetry. No aphasia or slurred speech.Generalized weakness, whe el chair bound., Alert and Awake, nonverbal. .LAB DATA REVIEWED:Recent Results (from the past 24 hour(s))CELL COUNT, BODY FLUID Collection Time: 12/19/18 12:30 PMResult Value Ref Range BODY FLUID TYPE THORCENFLD FLUID COLOR STRAW FLUID APPEARANCE CLOUD Y FLUID RBC CT. 9,000 /cu mm FLUID WBC COUNT 132 /cu mm FLD LYMPHS 66 % FLD MONOCYTES 2 % FLD NEUTROPHILS 32 % FLUID COMMENT Diff performed on concentrated slide preparat ionCULTURE, BODY FLUID W GRAM STAIN Collection Time: 12/19/18 12:30 PMResult Value Ref Range Special Requests: NO SPECIAL REQUESTS GRAM STAIN FEW WBC'S GRAM STAIN NO ORGANISMS SEEN Culture result: NO GROWTH AFTER 17 HOURSGLUCOSE, POC Collection Ti me: 12/19/18 4:43 PMResult Value Ref Range Glucose, bedside 129 (H) 65 - 110 MG/DLG LUCOSE, POC Collection Time: 12/19/18 11:24 PMResult Value Ref Range Glucose, bedsid e 127 (H) 65 - 110 MG/DLRENAL FUNCTION PANEL Collection Time: 12/20/18 3:25 AMResult Value Ref Range Sodium 149 (H) 136 - 145 mmol/L Potassium 4.5 3.5 - 5.1 mmol/L Ch loride 102 98 - 107 mmol/L CO2 36 (H) 21 - 32 mmol/L Anion gap 16 10 - 20 mmol/L Gluco se 123 (H) 74 - 106 mg/dL BUN 23 (H) 7 - 18 mg/dL Creatinine 0.48 (L) 0.70 - 1.30 mg /dL GFR est AA >60 >60 ml/min/1.73m2 GFR est non-AA >60 >60 ml/min/1.73m2 Calcium 8.7 8.5 - 10.1 mg/dL Phosphorus 3.9 2.5 - 4.9 mg/dL Albumin 2.2 (L) 3.5 - 4.7 g/dLMAGN ESIUM Collection Time: 12/20/18 3:25 AMResult Value Ref Range Magnesium 2.7 ( H) 1.6 - 2.6 mg/dLCBC WITH AUTOMATED DIFF Collection Time: 12/20/18 3:25 AMResult Value Ref Range WBC 9.2 4.8 - 10.6 K/uL RBC 3.21 (L) 4.70 - 6.00 M/uL HGB 10.6 (L) 1 4.0 - 18.0 g/dL HCT 33.3 (L) 42.0 - 52.0 % MCV 103.7 (H) 81.0 - 94.0 FL MCH 33.0 27 .0 - 35.0 PG MCHC 31.8 30.7 - 37.3 g/dL RDW 17.1 (H) 11.5 - 14.0 % PLATELET 254 130 - 400 K/uL MPV 9.4 9.2 - 11.8 FL NEUTROPHILS 79 (H) 48.0 - 72.0 % LYMPHOCYTES 10 (L) 18.0 - 40.0 % MONOCYTES 6 2.0 - 12.0 % EOSINOPHILS 0 0.0 - 7.0 % BASOPHILS 0 0. 0 - 3.0 % ABS. NEUTROPHILS 7.2 (H) 1.5 - 6.6 K/UL ABS. LYMPHOCYTES 0.9 (L) 1.5 - 3.5 K/UL ABS. MONOCYTES 0.6 0.0 - 1.0 K/UL ABS. EOSINOPHILS 0.0 0.0 - 0.7 K/UL ABS. BASO PHILS 0.0 0.0 - 0.1 K/UL DF AUTOMATED IMMATURE GRANULOCYTES 5 (H) 0.0 - 2.0 %G LUCOSE, POC Collection Time: 12/20/18 5:42 AMResult Value Ref Range Glucose, bedsid e 110 65 - 110 MG/DLAssessment/Plan:Active Problems: Pneumonia (11/08/2018) Sepsis due to undetermined organism (HCC) (12/12/2018) Acute Respiratory Failure wi th hypercapnia and Hypoxia Metabolic Acidosis - Resolving Sepsis -poa Metabolic Enceph alopathy Aspiration Pneumonia Acute COPD exacerbation Dysphagia s/p surgically pl joan,emt of peg Mentally challenged Seizure disorder Hyperparathyroid worsening pleu ral effusion bilaterallyS/p thoracentesis PLAN:Risk of deterioration: []Low []Moderate [x] High1. Keep in [place] Monae for thoracentesis which will be done today2. IV fluids3.O2 NC/BIPAP4. Iv Zosyn5. Pulmonary follow up6. ID follow up7. CT chest , bilateral Pleural effusion8. Restart officer captain medications via peg Covering for Admitting Physician: Mireya Magaña December 20, 2018 9:15 AM Name Value Range Interpretation Code Description Data Harriett rce(s) Supporting Document(s ) ID Date Data Source [id number] 12/20/2018 07:40:33 AM EDT [facility] Bedside and Verbal shift change report carol pham to CHANTELLE RN (oncoming nurse) byJerry Berkowitz, NANCY(offgoing nurse). Report give n with SBAR, Kardex, Intake/Output, MAR and RecentResults. Name Value Range Interpretation Code Description Data Harriett rce(s) Supporting Document(s ) ID Date Data Source [id number] 12/20/2018 06:08:58 AM EDT [facility] Name Value Range Interpretation Description Data Sup porting Code Source(s) Document(s ) Glucose 110 MG/DL 65-[address] [facility] [Mass/volume] Taoist in Blood by Hospital Automated test strip ID Date Data Source [id number] 12/20/2018 06:08:21 AM EDT [facility] Name Value Range Interpretation Description Data Sup porting Code Source(s) Document(s ) Leukocytes 9.2 K/uL 4.8-10.6 [facility] - [#/volume] in Good Blood by Taoist Automated count Hospital Erythrocytes 3.21 4.70-6.0 Below low normal [facility] - [#/volume] in M/uL 0 Good Blood by Taoist Automated count Hospital Hemoglobin 10.6 14.0-18. Below low normal [facility] - [Mass/volume] in g/dL 0 [facility] Blood [facility] Hematocrit 33.3 % 42.0-52. Below low normal [facility] - [Volume 0 Good Fraction] of Taoist Blood by Hospital Automated count Erythrocyte mean 103.7 FL 81.0-94. Above high normal [facility] - corpuscular 0 Good volume [Entitic Taoist volume] by Hospital Automated count Erythrocyte mean 33.0 PG 27.0-35. [facility] - corpuscular 0 Good hemoglobin Taoist [Entitic mass] Hospital by Automated count Erythrocyte mean 31.8 30.7-37. [facility] - corpuscular g/dL 3 Good hemoglobin [facility] [Mass/volume] by Automated count Erythrocyte 17.1 % 11.5-14. Above high normal [facility] - distribution 0 Good width [Ratio] by Taoist Automated count [facility] Platelets 254 K/uL 130-400 [facility] - [#/volume] in [facility] Blood by Taoist Automated count [facility] Platelet mean 9.4 FL 9.2-11.8 [facility] - volume [Entitic Good volume] in Blood Taoist by Automated Hospital count Segmented 79 % 48.0-72. Above high normal [facility] - neutrophils/100 0 Good leukocytes in [facility] Lymphocytes/100 10 % 18.0-40. Below low normal [facility] - leukocytes in 0 [facility] Blood [facility] Monocytes/100 6 % 2.0-12.0 [facility] - leukocytes in [facility] Blood [facility] Eosinophils/100 0 % 0.0-7.0 [facility] - leukocytes in [facility] Blood [facility] Basophils/100 0 % 0.0-3.0 [facility] - leukocytes in [facility] Blood [facility] Segmented 7.2 K/UL 1.5-6.6 Above high normal [facility] - neutrophils Good [#/volume] in [facility] Lymphocytes 0.9 K/UL 1.5-3.5 Below low normal [facility] - [#/volume] in [facility] Monocytes 0.6 K/UL 0.0-1.0 [facility] - [#/volume] in [facility] Eosinophils 0.0 K/UL 0.0-0.7 [facility] - [#/volume] in [facility] Basophils 0.0 K/UL 0.0-0.1 [facility] - [#/volume] in [facility] Differential [facility] - cell count [facility] Immature 5 % 0.0-2.0 Above high normal [facility] - granulocytes/100 [facility] leukocytes in [facility] by [facility] Automated count ID Date Data Source [id number] 12/20/2018 05:39:56 AM EDT [facility] Name Value Range Interpretation Description Data Sup porting Code Source(s) Document(s ) Sodium 149 136-145 Above high normal [facility] - Good [Moles/volume] mmol/L Taoist in Serum or Hospital Plasma Potassium 4.5 3.5-5.1 [facility] [Moles/volume] mmol/L Taoist in Serum or Hospital Plasma Chloride 102 98-107 [facility] [Moles/volume] mmol/L Taoist in Serum or Hospital Plasma Carbon 36 21-32 Above high normal [facility] - Good dioxide, total mmol/L Taoist [Moles/volume] Hospital in Serum or Plasma Anion gap in 16 10-20 [facility] - Good Serum or mmol/L Taoist Plasma Hospital Glucose 123 74-106 Above high normal [facility] - Good [Mass/volume] mg/dL Taoist in Serum or Hospital Plasma Urea nitrogen 23 mg/dL 7-18 Above high normal [facility] [Mass/volume] Taoist in Serum or Hospital Plasma Creatinine 0.48 0.70-1.3 Below low normal [facility] Good [Mass/volume] mg/dL 0 Taoist in Serum or Hospital Plasma Glomerular >60 [facility] - Good filtration Taoist rate/1.73 sq M Hospital predicted among blacks [Volume Rate/Area] in Serum or Plasma by Creatinine-bas ed formula (MDRD) Glomerular >60 [facility] - Good filtration Taoist rate/1.73 sq M Hospital predicted among non-blacks [Volume Rate/Area] in Serum or Plasma by Creatinine-bas ed formula (MDRD) Calcium 8.7 8.5-10.1 [facility] Good [Mass/volume] mg/dL Taoist in Serum or Hospital Plasma Phosphate 3.9 2.5-4.9 [facility] - Good [Mass/volume] mg/dL Taoist in Serum or Hospital Plasma Albumin 2.2 g/dL 3.5-4.7 Below low normal [facility] Good [Mass/volume] Taoist in Serum or Hospital Plasma by Bromocresol purple (BCP) dye binding method ID Date Data Source [id number] 12/20/2018 05:39:56 AM EDT [facility] Name Value Range Interpretation Description Data Sup porting Code Source(s) Document(s ) Magnesium 2.7 mg/dL 1.6-2.6 Above high normal [facility] [Mass/volume] Taoist in Serum or Hospital Plasma ID Date Data Source [id number] 12/19/2018 11:36:42 PM EDT [facility] Name Value Range Interpretation Description Data Sup porting Code Source(s) Document(s ) Glucose 127 MG/DL 65-110 Above high normal [facility] [Mass/volume] Taoist in Blood by [facility] Automated test strip ID Date Data Source [id number] 12/19/2018 07:17:12 PM EDT [facility] Bedside and Verbal shift change report carol pham to Jerry Berkowitz (oncoming nurse) Alexandria BARRAZA RN (offgoing nurse). Report included the following informationSBAR, Kardex, Intake/Output, MAR and Recent Results. Name Value Range Interpretation Code Description Data Harriett rce(s) Supporting Document(s ) ID Date Data Source [id number] 12/19/2018 04:55:28 PM EDT [facility] Name Value Range Interpretation Description Data Sup porting Code Source(s) Document(s ) Glucose 129 MG/DL 65-110 Above high normal [facility] [Mass/volume] Taoist in Blood by [facility] Automated test strip ID Date Data Source [id number] 12/19/2018 01:57:17 PM EDT [facility] ID Progress Note12/19/2018Subjective:Shauna nt is non verbal,unable to provide any historyAfebrile .S/p left pigtail cathet er insertion for pleural effusion.Objective:Vitals:Patient Vitals for the past 24 hrs: BP Temp Pulse Resp SpO2 Xohqap25/06/19 1247 150/88 - 74 24 94 % -12/19/18 1147 135/81 - 72 24 93 % -12/19/18 0811 - - - - 95 % -12/19/18 0729 132/69 97 F (36.1 C) 62 20 - -12/19/18 0607 - - - - - 63.5 kg (140 lb)12/19/18 0413 - 98 F (36.7 C) 68 22 98 % -12/19/18 0111 - - - - 94 % -12/18/18 2245 - - - - 94 % - 1923 121/69 98.2 F (36.8 C) 91 22 90 % -12/18/18 1612 153/75 98.5 F (36.9 C) 67 22 100 % -12/18/18 1601 130/71 98.2 F (36.8 C) 89 22 94 % -Tmax: Temp (24hrs ), Av F (36.7 C), Min:97 F (36.1 C), Max:98.5 F (36.9 C)Physical Exam:Genera l: Awake non verbal, cooperative, no distressMouth/Throat: Dry oral, mucosaNe ck: Supple, symmetrical, trachea midline, no adenopathyLungs: Decrease breath sound s at bases.Heart: Regular rate and rhythm, S1, S2 normal, no murmurAbdomen: Soft, non-tender. Bowel sounds normal. No masses, No organomegaly.+feeding tubeBack: No CVA tenderness.Extremities: Extremities normal, atraumatic, no cyanosis or edema .Pulses: 2+ and symmetric all extremities.Skin: Skin color, texture, t urgor normal. No rashes or lesionsCurrent Facility-Administered MedicationsMedicat ion Dose Route Frequency lidocaine (XYLOCAINE) 20 mg/mL (2 %) injection 100 mg 5 mL IntraDERMal ONCE methylPREDNISolone (PF) (SOLU-MEDROL) in jection 40 mg 40 mg IntraVENous Q8H albuterol-ipratropium (DUO-NEB) 2.5 MG-0 .5 MG/3 ML 3 mL Nebulization Q4H PRN potassium, sodium phosphates (NEUTRA-JOCY S) packet 1 Packet 1 Packet Oral QID acetylcysteine (MUCOMYST) 100 mg/mL (10 %) nebulizer solution 200 mg 2 mLNebulization BID RT albuterol-ipratro pium (DUO-NEB) 2.5 MG-0.5 MG/3 ML 3 mL Nebulization Q6H RT bacitracin 500 unit /gram packet 1 Packet 1 Packet Topical BID piperacillin-tazobactam (ZOSYN) 3.375 g in 0.9% sodium chloride (MBP/ADV) 100mL MBP 3.375 g IntraVENous Q8H budesonide (PUL MICORT) 500 mcg/2 ml nebulizer suspension 500 mcg NebulizationBID RT lamoTRIgine (LaMICtal) tablet 50 mg 50 mg Per G Tube BID valproic acid (as sodium salt) (DEPAKEN E) 250 mg/5 mL (5 mL) oral solution 750mg 750 mg Per G Tube BID cinacalcet (SENSI PAR) tablet 60 mg 60 mg Oral DAILY pantoprazole (PROTONIX) granules for ora l suspension 40 mg 40 mg Per G TubeACB heparin (porcine) injection 5,000 Units 5,000 Units SubCUTAneous Q12H sodium chloride (NS) flush 5-10 mL 5-10 mL Int raVENous PRNLabs:Recent Labs 12/19/1903WBC -- -- 1 2.2*HGB -- -- 13.0*PLT -- -- 337BUN 18 17 16CREA 0.40* 0.40* 0.51*Cultures:L ab ResultsComponent Value Date/Time Culture result: NO GROWTH 1 DAY 12/12/2018 08:04 PM Culture result: NO GROWTH 5 DAYS 12/12/2018 07:40 PM Culture result: NO G ROWTH 5 DAYS 12/12/2018 07:40 PMRadiology:Ct Thoracentesis Insrt Chest TubeResult Pan e: 12/19/2018History: Pleural effusion. PROCEDURE: After being informed of the r isks,benefits, and potential alternatives procedure informed consent was obtained. The patient was placed on the table in the [id number] decubitus position.CT sc anning was performed location was chosen over the left flank. However, dueto the signi ficant amount of patient motion and breathing motion was difficultto accurately assess a location for percutaneous paracentesis. Therefore, thiswas performed manually. A fter the chosen region was prepped and draped in thenormal sterile fashion using maxim um sterile barrier technique a lidocaineneedle was placed in the skin. This appeared to be in good position. Lidocainewas then used to anesthetize th e skin and subcutaneous tissues in this location.Attempts were made to pass an 8 Congolese pigtail catheter through this location.However, patient continuous mot ion was significant as well as excessivebreathing during the procedure. The catheter was placed at the same interspaceas well as marked on the prior CT sequence however, due to the excessive patientmotion the catheter was far more inferior within the chest that on the priorsequences. The catheter appeared to enter the hemiabdomen on the left from theleft chest. The catheter was then pul led back to position where clear yellowfluid was aspirated. It was then sewn in posit ion However, It appeared tomigrate forward and on the CT scanning appeared to again transgress thediaphragm. It was therefore pulled back to a point where only a sudhakar r fluid wasaspirated and respiratory variation was noted within the tube. It was then sewnin position using 2-0 silk sutures. FINDINGS: Initial CT scanning r evealed amoderate left pleural effusion. Attempts to nancy an adequate location fo rpercutaneous thoracentesis were quite limited due to excessive patient motiona nd breathing throughout the procedure. A location that appear to be a safelocatio n was marked. However, when the catheter was placed in this sameinterspace as well as marked the catheter appeared to be far more inferiorwithin the hemithorax than that seen previously. It appeared to enter the lefthemithorax inferiorly and transgress the diaphragm with no evidence pathologicsequela. Therefore, it was pul led back into the pleural space for adequatedrainage. 130 cc of lightly bloo d-tinged fluid was aspirated. The catheter wasattached to a Pleur-evac and wall suc tion.IMPRESSION: Left-sided thoracentesis described above.Assessment: Sepsis. As piration pneumonia. Acute respiratory failure with hypoxia and hypercapnia. A cute COPD exacerbation. Dysphagia. Atelectasis. Pleural effusion. Plan: 1. Continue IV zosyn.for 2 days2. Follow cultures.MARICEL Beauchampeptember 91:55 PM Name Value Range Interpretation Code Description Data Harriett rce(s) Supporting Document(s ) ID Date Data Source [id number] 12/23/2018 03:51:00 PM EDT [facility] Final Cytology ReportName: LINA CARLIN ANUELAccession Number: [id number] Date: 12/19/2018MRN: [id number] of : 1950 (Age: 68) MLocation: 3N (GS)Surgeon: Alireza LUNSFORDending Physician: MARYANN HILLS D.O.Copy To: STELLA HAMILTONPreoperative Diagnosis: Left pleural effusion Clinical History: Left thoracentesis Specimen(s) Received: A: P leural Fluid-leftFinal Pathologic Diagnosis: Pleural fluid, thoracentesis:Negative fo r malignant cells.Mesothelial cells and acute and chronic inflammation are present, se ecomment. Comment: Immunoperoxidase stains are positive for Calretinin in thereacti ve mesothelial cells and CD68 in the macrophages; negative forBer-Ep4 and MOC -31. The amount of fluid submitted is suboptimal forevaluation for malignancy due to the very small sample size. Ifmalignancy is suspected, at least 250 cc of the body cavity fluid shouldbe submitted for cytologic examination. dj e/12/23/2018Electronically Signed Out Stacy Calderonoss Description: Rec eived fresh labeled left pleural fluid is a total of65 mL of a yellow-red cloudy flu id that is entirely sent to cytology.[facility]/12/22/2018 Name Value Range Interpretation Code Description Data Harriett rce(s) Supporting Document(s ) ID Date Data Source [id number] 12/19/2018 12:58:14 PM EDT [facility] History:Pleural effusion.PROCEDURE:After being informed of the risks, benefits, and potential alternativesprocedure informed consent was obtained.The patient was placed on the table in the apgro-bgxz-mvic decu bitus position.CT scanning was performed location was chosen over the left flank. However,dueto the significant amount of patient motion and breathing motion was difficultto accurately assess a location for percutaneous paracentesis. Therefore, th iswas performed manually.After the chosen region was prepped and draped in the [facility] sterile fashionusing maximum sterile barrier technique a lidocaine needle was placed in theskin. This appeared to be in good position. Lidocaine was then used t oanesthetize the skin and subcutaneous tissues in this location.Attempts were m stephanie to pass an 8 Congolese pigtail catheter through this location.However, patient c ontinuous motion was significant as well as excessivebreathing during the procedure. The catheter was placed at the same interspaceas well as marked on the prior CT sequence however, due to the excessivepatientmotion the catheter was far more inferior within the chest that on the priorsequences. The catheter appeare d to enter the hemiabdomen on the left from theleft chest. The catheter was then pul led back to position where clear yellowfluid was aspirated. It was then sewn in posit ionHowever, It appeared to migrate forward and on the CT scanning appeared toagaint ransgress the diaphragm. It was therefore pulled back to a point where only aclear fluid was aspirated and respiratory variation was noted within the tube.It w as then sewn in position using 2-0 silk sutures.FINDINGS:Initial CT scanning rev ealed a moderate left pleural effusion. Attempts tomarkan adequate location for percutaneous thoracentesis were quite limited due toexcessive patient motion and breat silas throughout the procedure. A locationthatappear to be a safe location was marked. However, when the catheter was placedin this same interspace as well as marked the catheter appeared to be far moreinferior within the hemithorax than that seen previously. It appeared to enterthe left hemithorax inferiorly and transgres s the diaphragm with no evidencepathologic sequela. Therefore, it was pulled back i nto the pleural space foradequate drainage. 130 cc of lightly blood-tinged fluid was aspirated. Thecatheter was attached to a Pleur-evac and wall suction.IMPRESSION:L eft-sided thoracentesis described above.Signing date/time: 12/19/2018 12:58 PMSigned by: SAMIR RENTERIA Name Value Range Interpretation Code Description Data Harriett rce(s) Supporting Document(s ) ID Date Data Source [id number] 12/19/2018 12:54:34 PM EDT [facility] PT received in CT scan for Thoracentesis /pigtail catheter ordered by Dr. Hamilton.Consent signed by juice prior to procedure. Pre procedure checklist/VScompleted and WNL.. Pt transferred to CT table and sc anned. Left thoracentesissite marked. Time out done: Left pleural thoracentesis wit h pigtail catheterinsertion completed without incidence. 120 cc yellow/serous fluidob tained/specimens sent to lab. Pigtail catheter site covered with Vaselineguaz e/tegaderm and 4x4 dressings. Chest tube to LCWS draining small amout bloodtinged dr reilly. Post scan completed: VSS. [facility] bedaccompan[facility] by transport and Rn. Report to 3N Rn.Skater Pigtail Catheter:8 Congolese 25cmRef: [id number]: [id number]: 10/31/2023 Name Value Range Interpretation Code Description Data Harriett rce(s) Supporting Document(s ) ID Date Data Source [id number] 12/23/2018 01:17:43 PM EDT [facility] Name Value Range Interpretation Code Description Data Harriett rce(s) Supporting Document(s ) Service [facility] [id number] ORGANISMS SEEN Bacteria identified in Unspecified specimen [facility] by Culture ID Date Data Source [id number] 12/24/2018 02:21:54 PM EDT [facility] Name Value Range Interpretation Description Data Sup porting Code Source(s) Document(s ) Service comment [facility] Bacteria [facility] identified in [facility] specimen by Culture ID Date Data Source [id number] 12/19/2018 03:35:34 PM EDT [facility] Name Value Range Interpretation Description Data Sup porting Code Source(s) Document(s ) Specimen source [facility] [Identifier] [facility] Color of Body [facility] Appearance of [facility] Erythrocytes 9000 /cu [facility] - Good [#/volume] in [facility] Nucleated cells 132 /cu [facility] - Good [#/volume] in [facility] Lymphocytes/100 66 % [facility] leukocytes in [facility] Monocytes/100 2 % [facility] leukocytes in [facility] Neutrophils/100 32 % [facility] leukocytes in [facility] NOLOINC [facility] ID Date Data Source [id number] 12/19/2018 12:21:44 PM EDT [facility] Date of Procedure: 12/19/2018Procedure: CT guided left thoracentesisPreoperative Diagnosis: pleural effusionPostoperative Diagnosis: sameOperator: Samir Renteria MDAnesthesia: LocalEstimated Blood Loss: MinimalSpecimens: to labFindings: 8 fr pigtail placed in left chest, patient co nstant motion limitedprocedureComplications: NoneImplants: Radu Medrano Re port to Follow. Name Value Range Interpretation Code Description Data Harriett rce(s) Supporting Document(s ) ID Date Data Source [id number] 12/19/2018 11:01:27 AM EDT [facility] ID Progress Note12/19/2018Subjective:Shauna nt is non verbal,unable to provide any historyAfebrile .Objective:Vitals:Patien t Vitals for the past 24 hrs: BP Temp Pulse Resp SpO2 Mfoeil83/06/19 0811 - - - - 95 % -12/19/18 0729 132/69 97 F (36.1 C) 62 20 - -12/19/18 0607 - - - - - 63.5 kg (1 40 lb)12/19/18 0413 - 98 F (36.7 C) 68 22 98 % -12/19/18 0111 - - - - 94 % - 2245 - - - - 94 % -12/18/18 1923 121/69 98.2 F (36.8 C) 91 22 90 % -12/18/18 1 612 153/75 98.5 F (36.9 C) 67 22 100 % -12/18/18 1601 130/71 98.2 F (36.8 C) 89 22 94 % -12/18/18 1210 118/69 97.1 F (36.2 C) 88 24 90 % -Tmax: Temp (24hrs ), Av.8 F (36.6 C), Min:97 F (36.1 C), Max:98.5 F(36.9 C)Physical Exam:Ge neral: Awake non verbal, cooperative, no distressMouth/Throat: Dry oral, mucosaNe ck: Supple, symmetrical, trachea midline, no adenopathyLungs: Decrease breath sound s at bases.Heart: Regular rate and rhythm, S1, S2 normal, no murmurAbdomen: Soft, non-tender. Bowel sounds normal. No masses, No organomegaly.+feeding tubeBack: No CVA tenderness.Extremities: Extremities normal, atraumatic, no cyanosis or edema .Pulses: 2+ and symmetric all extremities.Skin: Skin color, texture, t urgor normal. No rashes or lesionsCurrent Facility-Administered MedicationsMedicat ion Dose Route Frequency methylPREDNISolone (PF) (SOLU-MEDROL) injection 40 mg 40 m g IntraVENous Q8H albuterol-ipratropium (DUO-NEB) 2.5 MG-0.5 MG/3 ML 3 mL Nebul ization Q4H PRN potassium, sodium phosphates (NEUTRA-PHOS) packet 1 Packet 1 Packet Oral QID acetylcysteine (MUCOMYST) 100 mg/mL (10 %) nebulizer solution 200 mg 2 mLNe bulization BID RT albuterol-ipratropium (DUO-NEB) 2.5 MG-0.5 MG/3 ML 3 mL Nebul ization Q6H RT bacitracin 500 unit/gram packet 1 Packet 1 Packet Topical BID p iperacillin-tazobactam (ZOSYN) 3.375 g in 0.9% sodium chloride (MBP/ADV) 100mL MBP 3.375 g IntraVENous Q8H budesonide (PULMICORT) 500 mcg/2 ml nebulizer suspe nsion 500 mcg NebulizationBID RT lamoTRIgine (LaMICtal) tablet 50 mg 50 mg Per G Tube BID valproic acid (as sodium salt) (DEPAKENE) 250 mg/5 mL (5 mL) oral solution 750mg 750 mg Per G Tube BID cinacalcet (SENSIPAR) tablet 60 mg 60 m g Oral DAILY pantoprazole (PROTONIX) granules for oral suspension 40 mg 40 m g Per G TubeACB heparin (porcine) injection 5,000 Units 5,000 Units SubCUTAneous Q1 2H sodium chloride (NS) flush 5-10 mL 5-10 mL IntraVENous PRNLabs:Recent Labs 12/19/1903WBC -- -- 12.2*HGB -- -- 13.0*PLT -- -- 337BUN 18 17 16CREA 0.40* 0.40* 0.51*Cultures:Lab ResultsComponent Value Date/Time Culture result: NO GROWTH 1 DAY 12/12/2018 08:04 PM Culture result: NO G ROWTH 5 DAYS 12/12/2018 07:40 PM Culture result: NO GROWTH 5 DAYS 12/12/2018 07:4 0 PMRadiology:Xr Chest PortResult Date: 12/18/2018Portable chest x-ray. PRIOR EXAM : 12/12/2018 and 11/25/2018 HISTORY: Pneumonia andpleural effusions FINDINGS: The heart is normal in size. The mediastinum andpulmonary vessels are unremarkable. T here is haziness within the lung basesbilaterally... The bony structures are intact.IMPRESSION: Haziness within the lung bases bilaterally that could repres entsmall pleural effusions and/or subsegmental atelectasis. Similar findin gs wereseen on prior exams.Assessment: Sepsis. Aspiration pneumonia. Acute re spiratory failure with hypoxia and hypercapnia. Acute COPD exacerbation. Dysphagia. Atelectasis. Pleural effusion. Plan:1. Continue IV zosyn.2. Follow cul tures.MARICEL Beauchampeptember 201810:57 AM Name Value Range Interpretation Code Description Data Harriett rce(s) Supporting Document(s ) ID Date Data Source [id number] 12/19/2018 09:36:38 AM EDT [facility] Progress NOTENAME: Evelio AbrahambeinDOB : 1950MRN: [id number]/Time: 12/19/2018 9:15 AMHISTORY OF PRESENT ILLNE SS:Evelio is a 68 y.o. male who presents from [facility] with medical history ofDysphag ia with recent admission s/p surgical peg placement on 11/17/18, severeintellectual disability, Chronic respiratory failure, hyperparathyroidunspecified, personal h/ o pulmonary embolus, anxiety disorder, kyphosis andschizophrenia.The patient is unable to provide a history due to his mental disability. Thenursing home staf f reporting pt had a cough, fever to 103 F and hypoxia. ChestXR showed suspicion f or a Pneumonia. Pt was given Iv Cefepime, Vancomycin andSolu- medrol. Pt was later found minimally responsive and was sent to the ED. In the ED, chest xr showed some streaky changes at the lung bases. ABG showedpH 7.40/55/56/34/ O2 SAT 90 % on 2 LPM and Lactic Acid was elevated to 5.5. Thepatient was given Iv Zosyn, Solu-Medr ol, nebulizer and IVF.Repeat lactic acid was still elevated at 5.3.The patient was ad mitted with enxounter diagnosis of Sepsis due to unspecifiedorganism, Pnermonia, unspe cified and COPD exacerbation.The patient was seen and examined at bedside he is less lethargic, nonverbbal.He is coughing. 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 No pertinent surgical history.Social HistoryTobacco Use Smoki ng status: Never Smoker Smokeless tobacco: Never UsedSubstance Use Topics Alcohol use: NoHistory reviewed. No pertinent family history.No Known AllergiesPrior to Admis elio medicationsMedication Sig Start Date End Date Taking? Authorizing Providerpantopr azole (PROTONIX) 40 mg granules for oral suspension 40 mg by Per G Tuberoute Kyleigh y (before breakfast). 11/28/18 Yes Mili Hills, DObudesonide (PULMICORT) 0.5 mg /2 mL nbsp 2 mL by Nebulization route two (2) timesa day for 30 days. 11/27/18 12/27/18 Yes Mili Hills, DOmultivitamin (ONE A DAY) tablet Take 1 Tab by mouth daily. Yes Provider,Historicalclorazepate (TRANXENE) 3.75 mg tablet Take by mouth nightly. Yes Provider,Historicalalbuterol-ipratropium (DUO-NEB) 2.5 mg-0.5 mg/3 ml nebu 3 mL by Nebulizationroute every six (6) hours as needed. Yes Provider, HistoricallamoTRIgine (LAMICTAL) 25 mg t ablet Take 50 mg by mouth two (2) times a day.Yes Provider, Historicalcinacalcet ( SENSIPAR) 30 mg tablet Take 60 mg by mouth daily. Yes Provider,Historicalvalproat e (DEPAKENE) 250 mg/5 mL syrup Take 750 mg by mouth two (2) times a day.Yes Provider, HistoricalREVIEW OF SYSTEMS: [x] Unable to obtain ROS due to patient factors.Object britni:VITALS:Visit VitalsBP 132/69 (BP 1 Location: Left arm, BP Patient Position: Lying right side)Pulse 62Temp 97 F (36.1 C)Resp 20Ht 5' 2" (1.575 m)Wt 63.5 kg (1 40 lb) Comment: nurse informedSpO2 95%BMI 25.61 kg/m PHYSICAL EXAM:General: Fuentes rt, cooperative, no distress, appears stated age.Head: Normocephalic, without obvio us abnormality, atraumatic.Eyes: Conjunctivae clear, anicteric sclerae. Pupils are equalThroat: Lips, mucosa, and tongue normal. No ThrushNeck: Supple, symmetrical, no adenopathy, no carotid bruit and no JVD.Back: Symmetric, No CVA tenderness.Lungs: Bilateral air entry.. Decreased breath sounds RUL. N o Wheezing orRhonchi. No rales.Chest wall: No Accessory muscle use.Heart: Regular rate and rhythm, no murmur, or rubAbdomen: Positive peg, non-tender. Not distended . Bowel sounds normal. NomassesExtremities: Extremities normal, atraumatic, No cyano sis. No edema. No clubbingSkin: Warm and dry. No rashes or lesions. Not Jaundice dLymph nodes: Cervical, supraclavicular normal.Psych: Not anxious or agitated.N eurologic: EOMs intact. No facial asymmetry. No aphasia or slurred speech.Generalized weakness, wheel chair bound., Alert and Awake, nonverbal. .LAB DATA REVIEWED:Rec ent Results (from the past 24 hour(s))GLUCOSE, POC Collection Time: 1:35 PMResult Value Ref Range Glucose, bedside 170 (H) 65 - 110 MG/DLP ROTHROMBIN TIME + INR Collection Time: 12/18/18 1:45 PMResult Value Ref Range Prothrombin time 11.2 (H) 9.4 - 11.1 sec INR 1.1 0.8 - 1.2GLUCOSE, POC Collection Patria e: 12/19/18 2:04 AMResult Value Ref Range Glucose, bedside 150 (H) 65 - 110 MG/DLR ENAL FUNCTION PANEL Collection Time: 12/19/18 3:28 AMResult Value Ref Range Sodium 14 2 136 - 145 mmol/L Potassium 4.4 3.5 - 5.1 mmol/L Chloride 100 98 - 107 mmol/L CO2 39 (H) 21 - 32 mmol/L Anion gap 7 (L) 10 - 20 mmol/L Glucose 125 (H) 74 - 106 mg/dL BU N 18 7 - 18 mg/dL Creatinine 0.40 (L) 0.70 - 1.30 mg/dL GFR est AA >60 >60 ml/min/1.7 3m2 GFR est non-AA >60 >60 ml/min/1.73m2 Calcium 8.8 8.5 - 10.1 mg/dL Phosphorus 3.6 2.5 - 4.9 mg/dL Albumin 2.1 (L) 3.5 - 4.7 g/dLMAGNESIUM Collection Time: 12/19/18 3:28 AMResult Value Ref Range Magnesium 2.1 1.6 - 2.6 mg/dLPROTHROMBIN TIME + INR Co llection Time: 12/19/18 3:28 AMResult Value Ref Range Prothrombin time 11.4 (H) 9.4 - 11.1 sec INR 1.1 0.8 - 1.2GLUCOSE, POC Collection Time: 12/19/18 7:03 AMResult Value Ref Range Glucose, bedside 133 (H) 65 - 110 MG/DLGLUCOSE, POC Collection Time: 12/19/18 7:35 AMResult Value Ref Range Glucose, bedside 116 (H) 65 - 110 MG/DLA ssessment/Plan:Active Problems: Pneumonia (11/08/2018) Sepsis due to undetermined organism (HCC) (12/12/2018) Acute Respiratory Failure with hypercapnia and Hypoxia Met abolic Acidosis - Resolving Sepsis -poa Metabolic Encephalopathy Aspiration Pneu monia Acute COPD exacerbation Dysphagia s/p surgically place,emt of peg Mentally maggy llenged Seizure disorder Hyperparathyroid worsening pleural effusion bilaterally PLAN:Risk of deterioration: []Low []Moderate [x] High1. Keep in ECUSpoke to Dr Monae for thoracentesis which will be done today2. IV fluids3.O2 NC/BIPAP4. Iv Zosyn5. Pulmonary follow up6. ID follow up7. CT chest , bilateral Pleural effusion8. 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 Report give n with SBAR, Kardex, Intake/Output, MAR and RecentResults. Name Value Range Interpretation Code Description Data Harriett rce(s) Supporting Document(s ) ID Date Data Source [id number] 12/19/2018 08:31:54 AM EDT [facility] Name Value Range Interpretation Description Data Sup porting Code Source(s) Document(s ) Glucose 116 MG/DL 65-110 Above high normal [facility] - Good [Mass/volume] [facility] in Blood by [facility] Automated test strip ID Date Data Source [id number] 12/19/2018 07:14:59 AM EDT [facility] Name Value Range Interpretation Description Data Sup porting Code Source(s) Document(s ) Glucose 133 MG/DL 65-110 Above high normal [facility] - Good [Mass/volume] [facility] in Blood by [facility] Automated test strip ID Date Data Source [id number] 12/19/2018 04:50:52 AM EDT [facility] - Good [facility] Name Value Range Interpretation Description Data Sup porting Code Source(s) Document(s ) Sodium 142 136-145 [facility] - Good [Moles/volume] mmol/L [facility] in Serum or Hospital Plasma Potassium 4.4 3.5-5.1 [facility] - Good [Moles/volume] mmol/L [facility] in Serum or Hospital Plasma Chloride 100 98-107 [facility] - Good [Moles/volume] mmol/L [facility] in Serum or Hospital Plasma Carbon 39 21-32 Above high normal [facility] - Good dioxide, total mmol/L [facility] [Moles/volume] Hospital in Serum or Plasma Anion gap in 7 mmol/L 10-20 Below low normal [facility] - Go od Serum or [facility] Plasma Hospital Glucose 125 74-106 Above high normal [facility] - Good [Mass/volume] mg/dL [facility] in Serum or Hospital Plasma Urea nitrogen 18 mg/dL 7-18 [facility] - Good [Mass/volume] [facility] in Serum or Hospital Plasma Creatinine 0.40 0.70-1.3 Below low normal [facility] - Good [Mass/volume] mg/dL 0 [facility] in Serum or Hospital Plasma Glomerular >60 [facility] - Good filtration [facility] rate/1.73 sq M Hospital predicted among blacks [Volume Rate/Area] in Serum or Plasma by Creatinine-bas ed formula (MDRD) Glomerular >60 [facility] - Good filtration [facility]ist rate/1.73 sq M Hospital predicted among non-blacks [Volume Rate/Area] in Serum or Plasma by Creatinine-bas ed formula (MDRD) Calcium 8.8 8.5-10.1 [facility] - Good [Mass/volume] mg/dL [facility] in Serum or Hospital Plasma Phosphate 3.6 2.5-4.9 [facility] - Good [Mass/volume] mg/dL [facility] in Serum or Hospital Plasma Albumin 2.1 g/dL 3.5-4.7 Below low normal [facility] - Good [Mass/volume] [facility] in Serum or Hospital Plasma by Bromocresol purple (BCP) dye binding method ID Date Data Source [id number] 12/19/2018 04:50:52 AM EDT [facility] Value Range Interpretation Description Data Sup porting Code Source(s) Document(s ) Magnesium 2.1 mg/dL 1.6-2.6 [facility] - Good [Mass/volume] [facility] in Serum or Hospital Plasma ID Date Data Source [id number] 12/19/2018 04:40:37 AM EDT [facility] Value Range Interpretation Description Data Sup porting Code Source(s) Document(s ) Prothrombin 11.4 sec 9.4-11.1 Above high normal [facility] - Go od time (PT) [facility] INR in 1.1 0.8-1.2 [facility] - Good Platelet poor [facility] plasma by Hospital Coagulation assay ID Date Data Source [id number] 12/19/2018 02:25:45 AM EDT [facility] Problem: Pneumonia: Day 1Goal: Off Pathw ay (Use only if patient is Off Pathway)Outcome: Progressing Towards Goa lGoal: Activity/SafetyOutcome: Progressing Towards GoalGoal: Consults, if orderedOu tcome: Progressing Towards GoalGoal: Diagnostic Test/ProceduresOutcome: Progr essing Towards GoalGoal: Nutrition/DietOutcome: Progressing Towar ds GoalGoal: MedicationsOutcome: Progressing Towards GoalGoal: RespiratoryOutcome: Pr ogressing Towards GoalGoal: Treatments/Interventions/ProceduresOutco me: Progressing Towards GoalGoal: PsychosocialOutcome: Progressing Towards GoalGoal: *Oxygen saturation within defined limitsOutcome: Progressing Towards GoalG oal: *Influenza vaccine administered (January-June)Outcome: Progressing Towa rds GoalGoal: *Pneumoccocal vaccine administeredOutcome: Progressing Towards GoalGoal: *Hemodynamically stableOutcome: Progressing Towards GoalGoal: *Demonstra tasha progressive activityOutcome: Progressing Towards GoalGoal: *Tolerating dietOutcom e: Progressing Towards GoalProblem: Pneumonia: Day 2Goal: Off Pathway (Use o nly if patient is Off Pathway)Outcome: Progressing Towards GoalGoal: Activity/S afetyOutcome: Progressing Towards GoalGoal: Consults, if orderedOutcome: Progressing Towards GoalGoal: Diagnostic Test/ProceduresOutcome: Progressing Towa rds GoalGoal: Nutrition/DietOutcome: Progressing Towards GoalGoal: Discharge PlanningOutcome: Progressing Towards GoalGoal: MedicationsOutcome: Progressin g Towards GoalGoal: RespiratoryOutcome: Progressing Towards GoalGoal: Treatments /Interventions/ProceduresOutcome: Progressing Towards GoalGoal: PsychosocialOutcome: P rogressing Towards GoalGoal: *Oxygen saturation within defined limitsOutcome: Progressing Towards GoalGoal: *Hemodynamically stableOutcome: Progress ing Towards GoalGoal: *Demonstrates progressive activityOutcome: Progressing Towards GoalGoal: *Tolerating dietOutcome: Progressing Towards GoalGoal: *Optimal p ain control at patient's stated goalOutcome: Progressing Towards GoalProblem: Sepsis: Day of DiagnosisGoal: Off Pathway (Use only if patient is Off Pathway)Outcome: Progr essing Towards GoalGoal: *Fluid resuscitationOutcome: Progressing Toward s GoalGoal: *Paired blood cultures prior to first dose of antibioticOutcome: Progres sing Towards GoalGoal: *First dose of appropriate antibiotic within 3 hours of arrival to ED,within 1 hour of arrival to ICUOutcome: Progressing Towards GoalGoal : *Lactic acid with first set of blood culturesOutcome: Progressing Towards Goa lGoal: *Pneumococcal immunization (if eligible)Outcome: Progressing Towards Go alGoal: *Influenza immunization (if eligible)Outcome: Progressing Towards Go alGoal: Activity/SafetyOutcome: Progressing Towards GoalGoal: Consults, if orderedOu tcome: Progressing Towards GoalGoal: Diagnostic Test/ProceduresOutcome: Progr essing Towards GoalGoal: Nutrition/DietOutcome: Progressing Towar ds GoalGoal: Discharge PlanningOutcome: Progressing Towards GoalGoal: Medication sOutcome: Progressing Towards GoalGoal: RespiratoryOutcome: Progressing Towards GoalGoal: Treatments/Interventions/ProceduresOutco me: Progressing Towards GoalGoal: PsychosocialOutcome: Progressing Towards GoalProblem: Sepsis: Day 2Goal: Off Pathway (Use only if patient is Off Pathway)Outc ome: Progressing Towards GoalGoal: *Central Venous Pressure maintained at 8-12 mm Hg Outcome: Progressing Towards GoalGoal: *Hemodynamically stableOutcome: Progress ing Towards GoalGoal: *Tolerating dietOutcome: Progressing Towards GoalGoa l: Activity/SafetyOutcome: Progressing Towards GoalGoal: Consults, if orderedOu tcome: Progressing Towards GoalGoal: Diagnostic Test/ProceduresOutcome: Progr essing Towards GoalGoal: Nutrition/DietOutcome: Progressing Towar ds GoalGoal: Discharge PlanningOutcome: Progressing Towards GoalGoal: Medication sOutcome: Progressing Towards GoalGoal: RespiratoryOutcome: Progressing Towards GoalGoal: Treatments/Interventions/ProceduresOutco me: Progressing Towards GoalGoal: PsychosocialOutcome: Progressing Towards GoalProblem: Sepsis: Day 3Goal: Off Pathway (Use only if patient is Off Pathway)Outc ome: Progressing Towards GoalGoal: *Central Venous Pressure maintained at 8-12 mm Hg Outcome: Progressing Towards GoalGoal: *Oxygen saturation within defined limits Outcome: Progressing Towards GoalGoal: *Vital sign stabilityOutcome: Progressing Towar ds GoalGoal: *Tolerating dietOutcome: Progressing Towards GoalGoal: *Demonstra tasha progressive activityOutcome: Progressing Towards GoalGoal: Activity/SafetyOutcome : Progressing Towards GoalGoal: Consults, if orderedOutcome: Progressing Towards Goal Goal: Diagnostic Test/ProceduresOutcome: Progressing Towards GoalGoal: Nutrition/ DietOutcome: Progressing Towards GoalGoal: Discharge PlanningOutcome: Progressing T owards GoalGoal: MedicationsOutcome: Progressing Towards GoalGoal: Respirator yOutcome: Progressing Towards GoalGoal: Treatments/Interventions/ProceduresOutco me: Progressing Towards GoalGoal: PsychosocialOutcome: Progressing Towards GoalProblem: Sepsis: Day 4Goal: Off Pathway (Use only if patient is Off Pathway)Outc ome: Progressing Towards GoalGoal: Activity/SafetyOutcome: Progressing Towa rds GoalGoal: Consults, if orderedOutcome: Progressing Towards GoalGoal: Diagnostic Test/ProceduresOutcome: Progressing Towards GoalGoal: Nutrition/DietOutcome: Progres sing Towards GoalGoal: Discharge PlanningOutcome: Progressing Towards Goa lGoal: MedicationsOutcome: Progressing Towards GoalGoal: RespiratoryOutcome: Pr ogressing Towards GoalGoal: Treatments/Interventions/ProceduresOutco me: Progressing Towards GoalGoal: PsychosocialOutcome: Progressing Towards GoalGoal: *Oxygen saturation within defined limitsOutcome: Progressing Towards GoalG oal: *Hemodynamically stableOutcome: Progressing Towards GoalGoal: *Vital sig ns within defined limitsOutcome: Progressing Towards GoalGoal: *Tolerating dietOutcom e: Progressing Towards GoalGoal: *Demonstrates progressive activityOutcom e: Progressing Towards GoalGoal: *Fluid volume maintenanceOutcome: Progressing T owards GoalProblem: Sepsis: Day 5Goal: Off Pathway (Use only if patient is Off Path way)Outcome: Progressing Towards GoalGoal: *Oxygen saturation within defined limits Outcome: Progressing Towards GoalGoal: *Vital signs within defined limitsOutcome: Prog ressing Towards GoalGoal: *Tolerating dietOutcome: Progressing Towards GoalGoa l: *Demonstrates progressive activityOutcome: Progressing Towards GoalGoal: *Discharge plan identifiedOutcome: Progressing Towards GoalGoal: Activity/SafetyOutcome: Progre ssing Towards GoalGoal: Consults, if orderedOutcome: Progressing Towards Goal Goal: Diagnostic Test/ProceduresOutcome: Progressing Towards GoalGoal: Nutrition/ DietOutcome: Progressing Towards GoalGoal: Discharge PlanningOutcome: Progressing T owards GoalGoal: MedicationsOutcome: Progressing Towards GoalGoal: Respirator yOutcome: Progressing Towards GoalGoal: Treatments/Interventions/ProceduresOutco me: Progressing Towards GoalGoal: PsychosocialOutcome: Progressing Towards GoalProblem: Sepsis: Day 6Goal: Off Pathway (Use only if patient is Off Pathway)Outc ome: Progressing Towards GoalGoal: *Oxygen saturation within defined limitsOutcome: Progressing Towards GoalGoal: *Vital signs within defined limitsOutcome: Progressin g Towards GoalGoal: *Tolerating dietOutcome: Progressing Towards GoalGoal: *Demonstra tasha progressive activityOutcome: Progressing Towards GoalGoal: Influenza immunization Outcome: Progressing Towards GoalGoal: *Pneumococcal immunizationOutcome: Progr essing Towards GoalGoal: Activity/SafetyOutcome: Progressing Towa rds GoalGoal: Diagnostic Test/ProceduresOutcome: Progressing Towa rds GoalGoal: Nutrition/DietOutcome: Progressing Towards GoalGoal: Discharge PlanningOutcome: Progressing Towards GoalGoal: MedicationsOutcome: Progressin g Towards GoalGoal: RespiratoryOutcome: Progressing Towards GoalGoal: Treatments /Interventions/ProceduresOutcome: Progressing Towards GoalGoal: PsychosocialOutcome: P rogressing Towards GoalProblem: Sepsis: Discharge OutcomesGoal: *Vital signs wit hin defined limitsOutcome: Progressing Towards GoalGoal: *Tolerating dietOutcom e: Progressing Towards GoalGoal: *Verbalizes understanding and describes prescribed d ietOutcome: Progressing Towards GoalGoal: *Demonstrates progressive activityOutcom e: Progressing Towards GoalGoal: *Describes follow-up/return visits to physiciansOut come: Progressing Towards GoalGoal: *Verbalizes name, dosage, time, side eff ects, and number of days tocontinue medicationsOutcome: Progressing Towards GoalGoal: *Influenza immunization (Jan-Jun only)Outcome: Progressing Towards GoalGo al: *Pneumococcal immunizationOutcome: Progressing Towards GoalGoal: *Lungs neo ar or at baselineOutcome: Progressing Towards GoalGoal: *Oxygen saturation returns to baseline or 90% or better on room airOutcome: Progressing Towards GoalGoal: *Glycemic controlOutcome: Progressing Towards GoalGoal: *Absence of deep venous thrombosis signs and symptoms(Stroke Metric)Outcome: Progressing Towards GoalGoal: *Describes available resources and support systemsOutcome: Progressing Towards Goal Goal: *Optimal pain control at patient's stated goalOutcome: Progressing Towards Goal Name Value Range Interpretation Code Description Data Harriett rce(s) Supporting Document(s ) ID Date Data Source [id number] 12/19/2018 02:16:30 AM EDT [facility] Name Value Range Interpretation Description Data Sup porting Code Source(s) Document(s ) Glucose 150 MG/DL 65-110 Above high normal [facility] [Mass/volume] Taoist in Blood by Hospital Automated test strip ID Date Data Source [id number] 12/18/2018 07:27:41 PM EDT [facility] Bedside and Verbal shift change report g iven to Jerry Berkowitz RN (oncomingnurse) by Aaliyah Dyson RN (offgoing nurse). Report given with SBAR,Kardex, Intake/Output, MAR and Recent Results. Name Value Range Interpretation Code Description Data [facility] rce(s) Supporting Document(s ) ID Date Data Source [id number] 12/18/2018 07:14:42 PM EDT [facility] Pt placed on venti mask due to pulling n vivian cannula off. Desats on occasion andin no resp distress today. Pulse on and patien t pulls at that as well. Restingcomfortably on 35 % venti mask and vitals stable at this time. Bipap stby andnight RT Sinu Duke aware. Name Value Range Interpretation Code Description Data [facility] Supporting Document(s ) ID Date Data Source [id number] 12/18/2018 04:01:01 PM EDT [facility] Patient pulling at medical equipment, tu bes and lines multiple times despiteredirection and several other int erventions. SpO2 80% on room air with worseningrespiratory distress. Placed on ventimask. Orders received for bilateral handmitts to prevent patient interfering with medical equipment. Name Value Range Interpretation Code Description Data [facility] Supporting Document(s ) ID Date Data Source [id number] 12/18/2018 03:42:03 PM EDT [facility] PULMONARY/ CCM- Consult NotePatient: Ivelisse Carlin Sex: male DOA: 12/12/2018Date of : 1 Age: 68 y.o. LOS: LOS: 6 daysHPI: kassie Carlin is a 68 y.o. male who has been seen for respfailure.pneumonia,recently discharge d..Patient with MR,aspiration pneumonia,dysphagia,s/p peg placement,CO PD,pulmonaryembolism,schizophrenia was transferred from the long-term for fe dlf931.3,shortness of breath and tachycardia.Patient is non verbal,unable toprovide history.ct scan showed bilateral pleural effusions,left more thanright,fo r pig tail catheter left,d/w dr ovalle/son in law of proxy.Past Medical History:Sammie gnosis Date Chronic obstructive pulmonary disease (HCC) GERD (gastroesophageal re flux disease) Hyperparathyroidism (HCC) Mental retardation 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 Authoriz ing Providerpantoprazole (PROTONIX) 40 mg granules for oral suspension 40 mg by Pe r G Tuberoute Daily (before breakfast). 11/28/18 Yes Mili Hills DObudesoni de (PULMICORT) 0.5 mg/2 mL nbsp 2 mL by Nebulization route two (2) timesa day fo r 30 days. 11/27/18 12/27/18 Yes Mili Hills, DOmultivitamin (ONE A DAY) tabl et Take 1 Tab by mouth daily. Yes Provider,Historicalclorazepate (TRANXENE ) 3.75 mg tablet Take by mouth nightly. Yes Provider,Historicalalbuterol-ipratro pium (DUO-NEB) 2.5 mg-0.5 mg/3 ml nebu 3 mL by Nebulizationroute every six (6) hours as needed. Yes Provider, HistoricallamoTRIgine (LAMICTAL) 25 mg t ablet Take 50 mg by mouth two (2) times a day.Yes Provider, Historicalcinacalcet ( SENSIPAR) 30 mg tablet Take 60 mg by mouth daily. Yes Provider,Historicalvalproat e (DEPAKENE) 250 mg/5 mL syrup Take 750 mg by mouth two (2) times a day.Yes Provider, HistoricalNo Known AllergiesHistory reviewed. No pertinent surgical history.History re viewed. No pertinent family history.Social HistorySocioeconomic History Marital st atus: SINGLE Spouse name: Not on file Number of children: Not on file Years o f education: Not on file Highest education level: Not on fileTobacco Use Smoking s tatus: Never Smoker Smokeless tobacco: Never UsedSubstance and Sexual Activity Alcoh ol use: No Drug use: NoReview of SystemsPertinent items are noted in the History of Present Illness.Physical Exam:Current medications:Current Facilit y-Administered Medications: methylPREDNISolone (PF) (SOLU-MEDROL) in jection 40 mg, 40 mg, IntraVENous,Q8H, Krystian Monae MD, 40 mg at 12/18/18 061 8 albuterol-ipratropium (DUO-NEB) 2.5 MG-0.5 MG/3 ML, 3 mL, Nebulization, Q4HP RN, Mili Hills DO, 3 mL at 12/16/18 0417 potassium, sodium phosphates (KISHA TRA-PHOS) packet 1 Packet, 1 Packet, Oral,QID, Krystian Monae MD, Stopped at 12/18/18 1300 acetylcysteine (MUCOMYST) 100 mg/mL (10 %) nebulizer solution 200 mg, 2 mL,Nebulization, BID RT, Mili Hills DO, 200 mg at 12/18/18 0828 albuterol- ipratropium (DUO-NEB) 2.5 MG-0.5 MG/3 ML, 3 mL, Nebulization, Q6HRT, Mili Hills DO, 3 mL at 12/18/18 1420 bacitracin 500 unit/gram packet 1 Packet, 1 Packet, Top ical, BID, Mili Hills DO, 1 Packet at 12/18/18 0819 piperacillin-tazobactam (ZOSYN) 3.375 g in 0.9% sodium chloride (MBP/ADV) 100mL MBP, 3.375 g, IntraVENou s, Q8H, Mili Hills DO, Last Rate: 25 mL/hr at12/18/18 1222, 3.375 g at 1222 budesonide (PULMICORT) 500 mcg/2 ml nebulizer suspension, 500 mcg,Nebulizati on, BID RT, Mili Hills DO, Stopped at 12/18/18 0800 lamoTRIgine (LaMICtal) t ablet 50 mg, 50 mg, Per G Tube, BID, Mili Hills DO, 50 mg at 12/18/18 0819 seema proic acid (as sodium salt) (DEPAKENE) 250 mg/5 mL (5 mL) oral kapdyirk527 mg, 750 mg, Per G Tube, BID, Mili Hills DO, 750 mg at 12/18/18 08 cinacalcet (SENSIP AR) tablet 60 mg, 60 mg, Oral, DAILY, Mili Hills DO,60 mg at 12/18/18818 hay toprazole (PROTONIX) granules for oral suspension 40 mg, 40 mg, Per GTube, ACB, Mili Hills DO, 40 mg at 12/18/18818 heparin (porcine) injection 5,000 Units , 5,000 Units, SubCUTAneous, Q12H,Mili Hills DO, Stopped at 12/18/18 1200 sodium chloride (NS) flush 5-10 mL, 5-10 mL, IntraVENous, PRN, Wes Romero, MDD ataVisit VitalsBP 118/69 (BP 1 Location: Left arm, BP Patient Position: At rest)Pulse 88Temp 97.1 F (36.2 C)Resp 24Ht 5' 2" (1.575 m)Wt 58.5 kg (129 lb)SpO2 90%BMI 23.59 kg/m Intake and Output:Date 12/17/18699 - 12/18/1865812/18/18699 - 10/01 0659Shift 6755-0059 9737-7821 24 Hour Total 2607-0750 3109-3571 24 Hour TotalI NTAKENG/GT 1000 1000 530 530 Water Flush Volume (mL) (PEG/Gastrostomy Tube ) 340 340 170 170 Medication Volume (PEG/Gastrostomy Tube 12/12/18) 180 180 120 120 Intake (ml) (PEG/Gastrostomy Tube 12/12/18) 480 480 240 240Shift Total(m L/kg) 1000(17.1) 1000(17.1) 530(9.1) 530(9.1)OUTPUTShift Total(mL/kg)NET 100 0 1000 530 530Weight (kg) 57.6 58.5 58.5 58.5 58.5 58.5Pulse OX:SpO2 Readings fro m Last 6 Encounters:12/18/18 90%11/27/18 91%09/26/15 96%@LASTSAO2(6)@PHYSICAL EXA M:General: Lethargic,responding.Head: Normocephalic, without obvious abnormali ty, atraumatic.Eyes: Conjunctivae clear, anicteric sclerae. Pupils are equalNose : Nares normal. No drainage or sinus tenderness.Throat: Lips, mucosa, and tongue normal. No ThrushNeck: Supple, symmetrical, no adenopathy, thyroid: no n tender no carotid bruit and no JVD.Back: Symmetric, No CVA tenderness.Lungs: Scattered rhonchi,Chest wall: No tenderness or deformity. No Accessory muscle use.He art: Regular rate and rhythm, no murmur, rub or gallop.Abdomen: Soft, non-tende r. Not distended. Bowel sounds normal. No massesExtremities: Extremities normal, a traumatic, No cyanosis. No edema. No clubbingSkin: Texture, turgor normal . No rashes or lesions. Not JaundicedLymph nodes: Cervical, supraclavicular normal. Neurologic: Lethargic.Most recent labs:Recent Labs 12/16/1902WBC 12.2* 9.4HGB 13.0* 12.6*HCT 40.8* 40.7*PLT 337 277Recent Labs 12/19/1903 1 12/17/1902NA -- 140 -- 142 141K -- 4.5 -- 4.3 4.2CL -- 100 -- 101 104CO2 -- 34* 42* 36* 34*GLU -- 140* -- 104 105BUN -- 17 -- 16 14CREA -- 0.40* -- 0.51* 0.40*CA -- 9.0 -- 8.9 8.4*MG -- 2. 2 -- 2.4 1.9PHOS -- 3.8 -- 4.3 2.9ALB -- 2.2* -- 2.3* 2.1*INR 1.1 -- -- -- --Recent Labs H 7.38PCO2 68*PO2 76*HCO3 40*ABG:Recent Labs 12/17 7.38PCO2 68*PO2 76*HCO3 40*Cultures:No results found for: SDESLa b ResultsComponent Value Date/Time Culture result: NO GROWTH 1 DAY 12/12/2018 08:04 PM Culture result: NO GROWTH 5 DAYS 12/12/2018 07:40 PM Culture result: NO G ROWTH 5 DAYS 12/12/2018 07:40 PM Culture result: NO GROWTH 2 DAYS 11/20/2018 09:0 0 AM Culture result: NO GROWTH 5 DAYS 11/07/2018 08:10 PM Culture result: NO G ROWTH 5 DAYS 11/07/2018 08:00 PMImages:Cta Chest W Or W Wo ContResult Date: 11/09/19 19Examination: CTA Chest ? PE angiography History: Hypoxia; rule out pneumoniavers us pulmonary embolism Priors: None Technique: Low-dose, multiplanar,helica l CTA chest was performed with bolus IV injection from lung apices tobases. 3D- reformatted images were obtained and reviewed on a dedicated viewingworkstation and di rectly supervised. Contrast: A total of 71 mL of Isovue-370was administered intravenou sly for this procedure. Findings: No evidence ofpulmonary embolism is seen. T here is decreased size of the right hemithorax fromchronic scarring and retr action with mediastinal shift left to right.Additional area of consolidation i s seen in the right lower lobe and suggestssuperimposed pneumonia with subs egmental atelectasis. Subsegmental atelectasisis also noted in the left jorge g base, with pleural parenchymal scarring. Lowlung volumes are seen. No pneumothora x seen. Aorta normal in caliber withoutaneurysm or dissection. Mediastin um no adenopathy. Mediastinal shift is seen inthe left and right as a result of chr onic changes in the right hemithorax.Heart shows no chamber enlargement or pericard ial effusion. No acute fracturesseen in the bony thorax, sternum, manubrium and rib cage. Multiple compressiondeformities are seen in the mid and lower thoracic spine , with superimposedspondyloarthropathy. Cannot exclude acute fracture.Impression : No evidence of pulmonary embolism Right lower lobe pneumoniasuggested. Incidenta l scarring and retraction in the right hemithorax fromremote/chronic inflammato ry disease and/or trauma. Bibasilar subsegmentalatelectasis. Report Electron ically Signed By: Pawel Zafar M.D. -11/08/2018 12:40 AMXr Chest PortResult D ate: 11/07/2018XR CHEST PORT CLINICAL INDICATION PROVIDED:. "sob." COMPARISON: . 09/26/2015.FINDINGS:. The pericardial/cardiac silhouette is enlarg ed in the transversedimension. There is no pulmonary vascular congestion or interst itial edema.Linear density in the left lung base and faint densities in the right mi d tolower lung likely represent atelectasis. There is no lobar consolidation oreffusi on. There is no pneumothorax.IMPRESSION:. Bilateral lower lung atelectasis. No donna dence of consolidation oreffusion.Assessment/PlanActive Problem s: Pneumonia (11/08/2018) Sepsis due to undetermined organism (HCC) (12/12/2018) Acute resp failure combined, pneumonia acute copd exacerbationPLAN,Monitoring,bipap p rn for resp distressChest percussionsFor left pig tail catheterIvabx as per id,Iv ster oids taperbipap prn and at night.NebS/p peg,feeding started.D/w nursing staff,d/ w dr ovalle/son in law proxy.MAIRCEL Munsoneptember 2018The billing code subm itted in association with this evaluation also includes thetime to review patient' s prior records, communicate with the physician team,obtain corroborating data , and discuss the risk and benefits of the proposedmanagement plan with the patient and their family >30 minutes. Name Value Range Interpretation Code Description Data Harriett rce(s) Supporting Document(s ) ID Date Data Source [id number] 12/18/2018 02:54:28 PM EDT [facility] YUAN started - placed into chart. Name Value Range Interpretation Code Description Data Harriett rce(s) Supporting Document(s ) ID Date Data Source [id number] 12/18/2018 02:04:57 PM EDT [facility] Portable chest x-ray.PRIOR EXAM: 12/13/19 19 and 11/25/2018HISTORY: Pneumonia and pleural effusions FINDINGS: The heart is normal in size. The mediastinum and pulmonary vessels areunremarkable. There is haziness within the lung bases bilaterally... The bony structures are i ntact.IMPRESSION:Haziness within the lung bases bilaterally that could represent s mall pleuraleffusions and/or subsegmental atelectasis. Similar findings were seen on priorexams.Signing date/time: 12/18/2018 2:04 PMSigned by: KARO RAMIREZ Name Value Range Interpretation Code Description Data Harriett rce(s) Supporting Document(s ) ID Date Data Source [id number] 12/18/2018 02:12:16 PM EDT [facility] Name Value Range Interpretation Description Data Sup porting Code Source(s) Document(s ) Prothrombin 11.2 sec 9.4-11.1 Above high normal [facility] - Go od time (PT) [facility] INR in 1.1 0.8-1.2 [facility] - [facility] Platelet poor Taoist plasma by [facility] Coagulation assay ID Date Data Source [id number] 12/18/2018 01:46:49 PM EDT [facility] - [facility] Name Value Range Interpretation Description Data Sup porting Code Source(s) Document(s ) Glucose 170 MG/DL 65-110 Above high normal [facility] - Good [Mass/volume] Taoist in Blood by [facility] Automated test strip ID Date Data Source [id number] 12/18/2018 01:09:32 PM EDT [facility] History:Arm claudication.FINDINGS:CTA of the left upper extremity was performed helically from level of theshoulder thro ugh the fingers after the intravenous administration of 119 cc ofIsovue. Sagit krystian, coronal, and 3-D reconstructed images obtained on anindepmercy hospital paris workstation ar e submitted. No prior studies are available forcomparison.The left subclavian artery is widely patent. It is continuous with a widelypatent left axillary artery. The a xillary artery is continuous with a widelypatent left brachial artery. The b rachial artery bifurcates into a radial andulnar artery just below the elbow. Fr om this point distally streak artifactfrompatient positioning limits e valuation. However, the ulnar artery appearswidelypatent to the wrist. The ra dial artery is less well opacified but does appearpatent to the wrist as well. An in traosseous artery also appears patentalthoughit is poorly visualized as well. The digital arteries are not visualized onthisstudy.There are bilater al pleural effusions noted both of which are moderate tolarge.The effusion on the lef t one is larger than the right. Bibasilar atelectaticchange throughout much of the lower lobes is seen. There is a significantshiftof mediastinal structure s to the right.The liver is decreased in attenuation compatible with fatty infilt ration. Thespleen is unremarkable. The adrenal glands are normal in appearance. Thepancreas is grossly normal as is the gallbladder. A gastrostomy tube is noted insitu. The kidneys are unremarkable. There is a midline abdominal wall herniacontai keith large and small bowel as well as mesentery without evidence ofobstruction .There is some presacral thickening and possibly some free fluid noted.The patie nt is status post ORIF of the left hip with metallic hardware insitu.IMPRESSION:Jordan nt left upper extremity arterial vessels although evaluation distally islimited.B ilateral pleural effusions and bibasilar atelectasis.Shift of mediastinal structu res to the right.Signing date/time: 12/18/2018 1:09 PMSigned by: SAMIR RENTERIA Name Value Range Interpretation Code Description Data [facility] rce(s) Supporting Document(s ) ID Date Data Source [id number] 12/18/2018 12:33:05 PM EDT [facility] Witnessed telephone consent from Dr. Ata bradshaw from Dr. Sandro Ovalle (POA son in law)for CT guided left sided thoracentesis. Two mason se consent signed and obtainedvia telephone. Name Value Range Interpretation Code Description Data Harriett rce(s) Supporting Document(s ) ID Date Data Source [id number] 12/18/2018 11:32:37 AM EDT [facility] Patient's condition, medications, feedin gs and ability to give consent reviewedwith Janelle Key RN.Consent to be obtained, feeding s ad heparin to be held at midnight and to reviewBIPAP stats in AM for CT procedure on 12/18 2018 Name Value Range Interpretation Code Description Data Harriett rce(s) Supporting Document(s ) ID Date Data Source [id number] 12/18/2018 10:30:39 AM EDT [facility] Progress NOTENAME: Evelio AbrahambeinDOB : 1950MRN: [id number]/Time: 12/18/2018 9:15 AMHISTORY OF PRESENT ILLNE SS:Evelio is a 68 y.o. male who presents from [facility] with medical history ofDysphag ia with recent admission s/p surgical peg placement on 11/17/18, severeintellectual disability, Chronic respiratory failure, hyperparathyroidunspecified, personal h/ o pulmonary embolus, anxiety disorder, kyphosis andschizophrenia.The patient is unable to provide a history due to his mental disability. Thenursing home staf f reporting pt had a cough, fever to 103 F and hypoxia. ChestXR showed suspicion f or a Pneumonia. Pt was given Iv Cefepime, Vancomycin andSolu- medrol. Pt was later found minimally responsive and was sent to the ED. In the ED, chest xr showed some streaky changes at the lung bases. ABG showedpH 7.40/55/56/34/ O2 SAT 90 % on 2 LPM and Lactic Acid was elevated to 5.5. Thepatient was given Iv Zosyn, Solu-Medr ol, nebulizer and IVF.Repeat lactic acid was still elevated at 5.3.The patient was ad mitted with enxounter diagnosis of Sepsis due to unspecifiedorganism, Pnermonia, unspe cified and COPD exacerbation.The patient was seen and examined at bedside he is less lethargic, nonverbbal.He is coughing. 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 No pertinent surgical history.Social HistoryTobacco Use Smoki ng status: Never Smoker Smokeless tobacco: Never UsedSubstance Use Topics Alcohol use: NoHistory reviewed. No pertinent family history.No Known AllergiesPrior to Admis elio medicationsMedication Sig Start Date End Date Taking? Authorizing Providerpantopr azole (PROTONIX) 40 mg granules for oral suspension 40 mg by Per G Darcie Cuil y (before breakfast). 11/28/18 Yes Mili Hills, DObudesonide (PULMICORT) 0.5 mg /2 mL nbsp 2 mL by Nebulization route two (2) timesa day for 30 days. 11/27/18 12/27/18 Yes Mili Hills, DOmultivitamin (ONE A DAY) tablet Take 1 Tab by mouth daily. Yes Provider,Historicalclorazepate (TRANXENE) 3.75 mg tablet Take by mouth nightly. Yes Provider,Historicalalbuterol-ipratropium (DUO-NEB) 2.5 mg-0.5 mg/3 ml nebu 3 mL by Nebulizationroute every six (6) hours as needed. Yes Provider, HistoricallamoTRIgine (LAMICTAL) 25 mg t ablet Take 50 mg by mouth two (2) times a day.Yes Provider, Historicalcinacalcet ( SENSIPAR) 30 mg tablet Take 60 mg by mouth daily. Yes Provider,Historicalvalproat e (DEPAKENE) 250 mg/5 mL syrup Take 750 mg by mouth two (2) times a day.Yes Provider, HistoricalREVIEW OF SYSTEMS: [x] Unable to obtain ROS due to patient factors.Object britni:VITALS:Visit VitalsBP 111/67 (BP 1 Location: Left arm, BP Patient Position: At rest)Pulse 67Temp 96.5 F (35.8 C)Resp 20Ht 5' 2" (1.575 m)Wt 58.5 kg (129 lb)S pO2 92%BMI 23.59 kg/m PHYSICAL EXAM:General: Alert, cooperative, no distress, appea rs stated age.Head: Normocephalic, without obvious abnormality, atraumatic.Eyes: Conjunctivae clear, anicteric sclerae. Pupils are equalThroat: Lips, mucosa, and tongue normal. No ThrushNeck: Supple, symmetrical, no adenopathy, no carotid bruit and no JVD.Back: Symmetric, No CVA tenderness.Lungs: Bilateral air entry .. Decreased breath sounds RUL. No Wheezing orRhonchi. No rales.Chest wall: No Acc essory muscle use.Heart: Regular rate and rhythm, no murmur, or rubAbdomen: Pos itive peg, non-tender. Not distended. Bowel sounds normal. NomassesExtremities: Extr emities normal, atraumatic, No cyanosis. No edema. No clubbingSkin: Warm and dry . No rashes or lesions. Not JaundicedLymph nodes: Cervical, supraclavicular normal. Psych: Not anxious or agitated.Neurologic: EOMs intact. No facial asymmetry. No aph greg or slurred speech.Generalized weakness, wheel chair bound., Alert and Awake, non verbal. .LAB DATA REVIEWED:Recent Results (from the past 24 hour(s))GLUCOSE, POC C ollection Time: 12/17/18 1:28 PMResult Value Ref Range Glucose, bedside 101 65 - 110 MG/DLBLOOD GAS, ARTERIAL Collection Time: 12/17/18 2:43 PMResult Value Ref Range pH 7.38 7.35 - 7.45 PCO2 68 (HH) 32 - 48 mmHg PO2 76 (L) 83 - 108 mmHg CO2, TOTAL 42 ( H) 19 - 24 mmol/L BICARBONATE 40 (H) 21 - 28 mmol/L O2 SAT 97 94 - 98 % BASE EXCESS 1 2.0 (H) 0 - 3 mmol/L SITE LEFT RADIAL MIRANDA'S TEST POSITIVE DEVICE NASAL O2 O2 FLOW 3 L/min RATE 3 Respiratory comment: CALLED TO AND READ BACK BY Performed by [id number] SE, POC Collection Time: 12/17/18 6:36 PMResult Value Ref Range Gl[facility], [facility] 109 65 - 110 MG/DLGLUCOSE, POC Collection Time: 12/17/18 11:55 PMResult Value Ref Range Glucose, bedside 141 (H) 65 - 110 MG/DLRENAL FUNCTION PANEL Collection Patria e: 12/18/18 4:21 AMResult Value Ref Range Sodium 140 136 - 145 mmol/L Potassium 4. 5 3.5 - 5.1 mmol/L Chloride 100 98 - 107 mmol/L CO2 34 (H) 21 - 32 mmol/L Anion g ap 11 10 - 20 mmol/L Glucose 140 (H) 74 - 106 mg/dL BUN 17 7 - 18 mg/dL Creatinine 0.4 0 (L) 0.70 - 1.30 mg/dL GFR est AA >60 >60 ml/min/1.73m2 GFR est non-AA >60 >60 ml/ min/1.73m2 Calcium 9.0 8.5 - 10.1 mg/dL Phosphorus 3.8 2.5 - 4.9 mg/dL Albumin 2 .2 (L) 3.5 - 4.7 g/dLMAGNESIUM Collection Time: 12/18/18 4:21 AMResult Value Ref Range Magnesium 2.2 1.6 - 2.6 mg/dLGLUCOSE, POC Collection Time: 12/18/18 5:29 AMRe sult Value Ref Range Glucose, bedside 172 (H) 65 - 110 MG/DLAssessment/Plan:Active Pro blems: Pneumonia (11/08/2018) Sepsis due to undetermined organism (HCC) (12/12/2018) Acute Respiratory Failure with hypercapnia and Hypoxia Metabolic Acidosis - Resolvi ng Sepsis -poa Metabolic Encephalopathy Aspiration Pneumonia Acute COPD exacerba tion Dysphagia s/p surgically place,emt of peg Mentally challenged Seizure disorder Hyperparathyroid worsening pleural effusion bilaterally PLAN:Risk of deterioration: []Low []Moderate [x] High1. Keep in ECUSpoke to Dr Monae for thoracentesis which will be done today2. IV fluids3.O2 NC/BIPAP4. Iv Zosyn5. Pulmonary follow up6. ID follow up7. CT chest8. Restart officer captain medications via peg Covering for Admitting Physician: Oralia Frankel MD December 18, 2018 9:15 AM Name Value Range Interpretation Code Description Data Harriett rce(s) Supporting Document(s ) ID Date Data Source [id number] 12/18/2018 10:02:09 AM EDT [facility] GI dictatedRequested possible conversion of G to J tube to make aspiration less likely,less severe.Technically, this is reasonable easy to do. The major issue is whether the Jtube will remain in [facility] chr onically, or if it is pulled on, or pt vomits it mayend up in stomach.The proper 'kit' has been ordered, tentatively scheduled for Saturday [david toallow pulm improvement]myrtle nx Name Value Range Interpretation Code Description Data [facility] rce(s) Supporting Document(s ) ID Date Data Source [id number] 12/18/2018 10:01:38 AM EDT [facility] Spoke with Dr. Frankel and Dr. Joy finley patients CT chest results withworsening B/L pleural effusions. Orders received p er for CT guided pigtailcath insertion for left sided thoracentesis. Patient remain s tachypneic at restwith rhonchi throughout lung barron O2 @ 3L via NC SpO2 88-90%. Name Value Range Interpretation Code Description Data [facility] rce(s) Supporting Document(s ) ID Date Data Source [id number] 12/18/2018 08:29:48 AM EDT [facility] Bedside and Verbal shift change report carol Fischer, RN (oncoming nurse) byYuki Alonzo, NANCY(offgoing nurse). Report given with SBAR, Kardex, Intake/Output, MAR and RecentResults. Name Value Range Interpretation Code Description Data [facility] rce(s) Supporting Document(s ) ID Date Data Source [id number] 12/18/2018 07:20:54 AM EDT [facility] Reviewed BIPAP settings, alarms and skin adhesive With next shift RT Hoa. Name Value Range Interpretation Code Description Data [facility] rce(s) Supporting Document(s ) ID Date Data Source [id number] 12/18/2018 05:56:21 AM EDT [facility] Name Value Range Interpretation Description Data Sup porting Code Source(s) Document(s ) Glucose 172 MG/DL 65-110 Above high normal [facility] [Mass/volume] Taoist in Blood by Hospital Automated test strip ID Date Data Source [id number] 12/18/2018 04:50:00 AM EDT [facility] Referring Physician: KRYSTIAN MONAEPatient Name: EVELIO AMARO IS A FINAL REPORT FROM IMAGING ON CALLDATE OF TEVIN CE: 2018-12-18 01:22:40IMAGES: 555EXAM: CT CHEST WO CONTRASTHISTORY: .. Right lower lobe atelectasis..TECHNIQUE: Helical axial imaging from the thoracic inlet throught he adrenal glands without contrast. Sagittal and coronalreconstructions were obtained .COMPARISON: CT chest without contrast of 12/13/2018.FINDINGS: ..Evaluation remains limited due to lack of IV contrast and patientpositioning. The imaged thyroid g land remains atrophic. The aortaremains normal in caliber. Atherosclerotic calci fications areagain seen in the aorta.There is again cardiomediastinal shift towards th e right. Theheart remains normal in size and no pericardial effusion isnoted. No obvi ous lymphadenopathy seen on this unenhanced scan.No pneumothorax is noted. Since the prior exam there is beenincrease in bilateral pleural effusions with associa tedconsolidations. A calcified granuloma is again seen in the rightlower lobe.The im aged upper abdomen does not demonstrate any gross acutechanges. Osteopenia is again noted. Degenerative changes againseen in the imaged spine. Old healed right posterior lower ribfractures are again seen.IMPRESSION: ..Limited study demonst rating increase in bilateral pleuraleffusions with associated consolidations with pers istentcardiomediastinal shift towards the right. Stable findings asnoted above..On e or more of the following dose reduction techniques were used:automated exposure control, adjustment of the mA and/or kVaccording to patient size, use of iter ative reconstructivetechnique.THIS DOCUMENT HAS BEEN ELECTRONICALLY SIGNEDKamran Gillette MD12/18/2018 04:49 ESTM.D. Please call [facility] [employer] [facility] [phone] withquestions.This report was electronically signed by:Kamran tran MD12/18/2018 04:50 AM Signing date/time: 12/18/2018 4:50 AMSigned by: KAMRAN DUNN Name Value Range Interpretation Code Description Data Harriett rce(s) Supporting Document(s ) ID Date Data Source [id number] 12/18/2018 06:02:45 AM EDT [facility] Name Value Range Interpretation Description Data Sup porting Code Source(s) Document(s ) Sodium 140 136-145 [facility] [Moles/volume] mmol/L Taoist in Serum or Hospital Plasma Potassium 4.5 3.5-5.1 [facility] [Moles/volume] mmol/L [facility] in Serum or Hospital Plasma Chloride 100 98-107 [facility] [Moles/volume] mmol/L [facility] in Serum or Hospital Plasma Carbon 34 21-32 Above high normal [facility] dioxide, total mmol/L [facility] [Moles/volume] Hospital in Serum or Plasma Anion gap in 11 10-20 [facility] Serum or mmol/L [facility]ist Plasma Hospital Glucose 140 74-106 Above high normal [facility] [Mass/volume] mg/dL [facility] in Serum or Hospital Plasma Urea nitrogen 17 mg/dL 7-18 [facility] [Mass/volume] Taoist in Serum or Hospital Plasma Creatinine 0.40 0.70-1.3 Below low normal [facility] [Mass/volume] mg/dL 0 [facility] in Serum or Hospital Plasma Glomerular >60 [facility] filtration Taoist rate/1.73 sq M Hospital predicted among blacks [Volume Rate/Area] in Serum or Plasma by Creatinine-bas ed formula (MDRD) Glomerular >60 [facility] filtration Taoist rate/1.73 sq M Hospital predicted among non-blacks [Volume Rate/Area] in Serum or Plasma by Creatinine-bas ed formula (MDRD) Calcium 9.0 8.5-10.1 [facility] [Mass/volume] mg/dL [facility] in Serum or Hospital Plasma Phosphate 3.8 2.5-4.9 [facility] [Mass/volume] mg/dL [facility] in Serum or Hospital Plasma Albumin 2.2 g/dL 3.5-4.7 Below low normal [facility] [Mass/volume] Taoist in Serum or Hospital Plasma by Bromocresol purple (BCP) dye binding method ID Date Data Source [id number] 12/18/2018 06:02:45 AM EDT [facility] Name Value Range Interpretation Description Data Sup porting Code Source(s) Document(s ) Magnesium 2.2 mg/dL 1.6-2.6 [facility] [Mass/volume] Taoist in Serum or Hospital Plasma ID Date Data Source [id number] 12/18/2018 04:20:40 AM EDT [facility] Problem: Falls - Risk ofGoal: *Absence o f FallsDescriptionDocument Samra Fall Risk and appropriate interventions in the jhon wsheet.Outcome: Progressing Towards GoalNote:Fall Risk Interventions:Mentati on Interventions: Bed/chair exit alarm, Door open when patientunattended, Evaluate me dications/consider consulting pharmacy, More frequentrounding, Toileting roundsMedica tion Interventions: Evaluate medications/consider consulting pharmacy Elimination Interventions: Call light in reach, Toileting schedule/hourly roundsP roblem: Pressure Injury - Risk ofGoal: *Prevention of pressure injuryDescriptio nDocument Butch Scale and appropriate interventions in the flowsheet.Outcome: Progressing Towards GoalNote:Pressure Injury Interventions:Sensory Interventions: Ass ess changes in LOC, Avoid rigorous massage over bonyprominences, Check visual cues for pain, Keep linens dry and wrinkle-free, Floatheels, Minimize linen layers, Monit or skin under medical devices, Pad betweenskin to skinMoisture Intervention s: Apply protective barrier, creams and emollients, Checkfor incontinence Q2 tammy rs and as needed, Limit adult briefs, Maintain skinhydration (lotion/cream), M inimize layersActivity Interventions: Pressure redistribution bed/mattress(bed type)Mobility Interventions: HOB 30 degrees or less, Pressure redistributionbed/leodan ress (bed type), Turn and reposition approx. every two hours(pillow andwedges)Nutriti on Interventions: Document food/fluid/supplement intake, Offer supp ortwith meals,snacks and hydrationFriction and Shear Interventions: Apply protectiv e barrier, creams andemollients, Feet elevated on foot rest, Foam dressings/tr ansparent film/skinsealants, HOB 30 degrees or less, Lift sheet, Minimize layers,Tra nsferring/repositioning devices Name Value Range Interpretation Code Description Data Harriett rce(s) Supporting Document(s ) ID Date Data Source [id number] 12/18/2018 12:17:10 AM EDT [facility] Name Value Range Interpretation Description Data Sup porting Code Source(s) Document(s ) Glucose 141 MG/DL 65-110 Above high normal [facility] [Mass/volume] Taoist in Blood by Hospital Automated test strip ID Date Data Source [id number] 12/17/2018 11:11:18 PM EDT [facility] Spoke with Son in law, Dr. Sandro Ovalle devang t . CT questionnairecompleted. Name Value Range Interpretation Code Description Data Harriett rce(s) Supporting Document(s ) ID Date Data Source [id number] 12/17/2018 10:57:03 PM EDT [facility] 2157: Call out to Dr. Hills's office. C alling to discuss pt's left arm which iscool to touch.2214:Spoke with Dr. Marlys de oliveira rding pt's cool left arm. Advised to pagehospitalist to come evaluate patient .2220: Spoke with Dr. Molina. Dr. Molina to evaluate pt.2230: Dr. Molina ordered STAT CTA of upper left arm. Name Value Range Interpretation Code Description Data Harriett rce(s) Supporting Document(s ) ID Date Data Source [id number] 12/17/2018 08:06:25 PM EDT [facility] Bedside and Verbal shift change report g iven to Yuki Jean RN (oncoming nurse)by Lisa White RN(offgoing nurse). Repo rt given with SBAR, Kardex, Intake/Output, MAR and RecentResults. Name Value Range Interpretation Code Description Data Harriett rce(s) Supporting Document(s ) ID Date Data Source [id number] 12/17/2018 08:05:53 PM EDT [facility] Patient noted to be lethargic with dyspn eic. Lungs bilateral rhonchi andrhales. HOB As tolerated. Dr Monae notified. New or bassem obtained. Patientplaced on Bipap at prescribed setting. Family visited and u pdated on patient'scare. NPO status maintained. Bolus feeding tolerated well . No residual. Name Value Range Interpretation Code Description Data Harriett rce(s) Supporting Document(s ) ID Date Data Source [id number] 12/17/2018 07:59:30 PM EDT [facility] Problem: Pressure Injury - Risk ofGoal: *Prevention of pressure injuryDescriptionDocument Butch Scale a nd appropriate interventions in the flowsheet.Outcome: Progressing Towards G oalNote:Pressure Injury Interventions:Sensory Interventions: Assess changes in LOC, Ch wojciech visual cues for pain, Keeplinens dry and wrinkle-free, Minimize linen layersMoist ure Interventions: Apply protective barrier, creams and emollients,Internal/External urinary devices, Maintain skin hydration (lotion/cream),Minimize layers, Moisture barrierActivity Interventions: Pressure redistribution bed/mattress(bed type), P T/OTevaluationMobility Interventions: HOB 30 degrees or less, Pressure redistribution bed/mattress (bed type), PT/OT evaluationNutrition Interventions: Docum ent food/fluid/supplement intakeFriction and Shear Interventions: Apply protective ba rrier, creams andemollients, HOB 30 degrees or less, Minimize layersProblem: Patient Education: Go to Patient Education ActivityGoal: Patient/Family EducationOu tcome: Progressing Towards GoalProblem: Nutrition DeficitGoal: *Optimize nutriti onal statusDescriptionPt to progress towards meeting >80% nutrient needs within 3-7 d aysOutcome: Progressing Towards Goal Name Value Range Interpretation Code Description Data [facility] Supporting Document(s ) ID Date Data Source [id number] 12/17/2018 07:15:30 PM EDT [facility] Pt on Bipap PRN. Vitals stable and Pt co mfortable on Bipap at this time. ALLYVENin place. Vitals stable at this time and re ported to night RT Silvio Miller. Name Value Range Interpretation Code Description Data [facility] Supporting Document(s ) ID Date Data Source [id number] 12/17/2018 06:49:04 PM EDT [facility] Name Value Range Interpretation Description Data Sup porting Code Source(s) Document(s ) Glucose 109 MG/DL 65-110 [facility] [Mass/volume] Taoist in Blood by Hospital Automated test strip ID Date Data Source [id number] 12/17/2018 05:16:50 PM EDT [facility] Called to room for resp distress. Obtain ed ABG/s and called to read back to . Placed pt on bipap as ordered and ALLYVEN skin barrier in place onbridge of nose. No redness noted. Pt resting co mfortably and vitals stable atthis time. Name Value Range Interpretation Code Description Data Harriett rce(s) Supporting Document(s ) ID Date Data Source [id number] 12/17/2018 03:01:28 PM EDT [facility] Critical Care Progress [facility]Krystian Monae MD., F.C.C.P.Stella Hamilton MD., F.C.C.P. [address] [place] [id number] [place] [address] Name: Evelio JohnsoninDOB: 1950MRN: [id number]: 12/17/2018Subjective:Mr. Carlin is a 68 y.o. year old male who is being see n for ACUTERESPIRATORY DISTRESS . 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) Pneumoni a Psychiatric disorder Pulmonary emboli (HCC) Schizophrenia (HCC)Allergy:No Kno wn AllergiesVital Signs:Patient Vitals for the past 24 hrs: BP Temp Pulse Resp SpO2 Jkteox72/04/19 1116 (!) 122/100 97.4 F (36.3 C) (!) 106 20 90 % -12/17/18 0739 104/64 98.1 F (36.7 C) (!) 105 20 92 % -12/17/18 0501 120/86 97.3 F (36.3 C) (!) 114 20 (!) 89 % 57.6 kg (127 lb)12/17/18 0004 116/67 98 F (36.7 C) (!) 106 20 9 0 % -12/16/18 2018 106/64 97.6 F (36.4 C) (!) 108 22 96 % -12/16/18 1517 114/69 97 .5 F (36.4 C) 97 20 90 % -Pulse OX:SpO2 Readings from Last 6 Encounters:12/17/18 90%11/27/18 91%09/26/15 96%@LASTSAO2(6)@Intake/Output:Last shift : No intake/output data recorded.Last 3 shifts: 12/15 1901 - 12/17 0700In: 3350 [I.V.:300]Out: 250 [Urine:250]Intake/Output Summary (Last 24 hours) at 12/17/2018 1431 Last data filed at 12/17/2018 0646Gross per 24 hourIntake 1610 mlOutput -Net 1610 mlHem odynamics:.@MAP.@CVPVentilator Settings:Mode Rate Tidal Volume Pressure FiO2 PEEPPeak airway pressure:Minute ventilation:ARDS network Guidelines: Lung protective stra tegy and Pl pressure goals N /Aless than or equal to 30Physical Exam:NOT RESPONDING TO V.O ,TOUCH OR PAIN . MARKED DYSPNEA + General: Alert, cooperative, M ODERATE distress, appears stated age. Head: Normocephalic, without obvi ous abnormality, atraumatic. Eyes: Conjunctivae/corneas clear. PERRL, EOM s intact. Nose: Nares normal. No drainage or sinus tenderness Thr oat: Lips, mucosa, and tongue normal Neck: Supple, symmetrical, trachea midline, no adenopathy,thyroid: no enlargement/tenderness/nodules, no carot id bruit and no JVD. Lungs: ABSENT BREATH SOUNDS RT . BASES W ITH DULLNESS R L L, RALES R L L > L L L to auscultation bilaterally. Chest Wal l: No tenderness or deformity. Heart: Regular rate and rhythm, S1, S 2 normal, E S GR 2/ 6murmur, click, rub or NO gallop. Abdomen: Soft, non-te nder. Bowel sounds normal. No masses, No organomegaly. Extremities: Extremities normal, atraumatic, no cyanosis or edema. Pulses: 4+ bilaterally Skin: Skin color, texture, turgor normal. No rashes or lesions. Neurologic: UN[employer] ESPONSIVE . CNII-XII intact. No focal motor or sensorydeficit.DATA:Current Facility- Administered MedicationsMedication Dose Route Frequency methylPREDNISolone (PF) (SOLU -MEDROL) injection 40 mg 40 mg IntraVENous Q8H albuterol-ipratropium (DUO-NEB) 2.5 MG-0.5 MG/3 ML 3 mL Nebulization Q4H PRN potassium, sodium phosphates (NEUTRA-JOCY S) packet 1 Packet 1 Packet Oral QID acetylcysteine (MUCOMYST) 100 mg/mL (10 %) nebulizer solution 200 mg 2 mLNebulization BID RT albuterol-ipratro pium (DUO-NEB) 2.5 MG-0.5 MG/3 ML 3 mL Nebulization Q6H RT bacitracin 500 unit /gram packet 1 Packet 1 Packet Topical BID piperacillin-tazobactam (ZOSYN) 3.375 g in 0.9% sodium chloride (MBP/ADV) 100mL MBP 3.375 g IntraVENous Q8H budesonide (PUL MICORT) 500 mcg/2 ml nebulizer suspension 500 mcg NebulizationBID RT lamoTRIgine (LaMICtal) tablet 50 mg 50 mg Per G Tube BID valproic acid (as sodium salt) (DEPAKEN E) 250 mg/5 mL (5 mL) oral solution 750mg 750 mg Per G Tube BID cinacalcet (SENSI PAR) tablet 60 mg 60 mg Oral DAILY pantoprazole (PROTONIX) granules for ora l suspension 40 mg 40 mg Per G TubeACB heparin (porcine) injection 5,000 Units 5,000 Units SubCUTAneous Q12H sodium chloride (NS) flush 5-10 mL 5-10 mL Int raVENous PRNTelemetry: [x]Sinus []A-flutter []Paced []A-fib []Multiple PVC'sLabs:Rec ent Results (from the past 24 hour(s))GLUCOSE, POC Collection Time: 5:39 PMResult Value Ref Range Glucose, bedside 86 65 - 110 MG/DLGLUCOS E, POC Collection Time: 12/16/18 11:57 PMResult Value Ref Range Glucose, bedsid e 105 65 - 110 MG/DLRENAL FUNCTION PANEL Collection Time: 12/17/18 3:01 AMResult Value Ref Range Sodium 142 136 - 145 mmol/L Potassium 4.3 3.5 - 5.1 mmol/L Chloride 101 98 - 107 mmol/L CO2 36 (H) 21 - 32 mmol/L Anion gap 9 (L) 10 - 20 mmol/L Glucose 1 04 74 - 106 mg/dL BUN 16 7 - 18 mg/dL Creatinine 0.51 (L) 0.70 - 1.30 mg/dL GF R est AA >60 >60 ml/min/1.73m2 GFR est non-AA >60 >60 ml/min/1.73m2 Calcium 8.9 8.5 - 10.1 mg/dL Phosphorus 4.3 2.5 - 4.9 mg/dL Albumin 2.3 (L) 3.5 - 4.7 g/dLMAGNESIUM Collection Time: 12/17/18 3:01 AMResult Value Ref Range Magnesium 2.4 1.6 - 2.6 mg/dLCBC WITH AUTOMATED DIFF Collection Time: 12/17/18 3:01 AMResult Value Ref Range WBC 12.2 (H) 4.8 - 10.6 K/uL RBC 3.86 (L) 4.70 - 6.00 M/uL HGB 13.0 (L) 14.0 - 18. 0 g/dL HCT 40.8 (L) 42.0 - 52.0 % MCV 105.7 (H) 81.0 - 94.0 FL MCH 33.7 27.0 - 35.0 PG MCHC 31.9 30.7 - 37.3 g/dL RDW 17.0 (H) 11.5 - 14.0 % PLATELET 337 130 - 400 K/u L MPV 9.9 9.2 - 11.8 FL NEUTROPHILS 39 (L) 48 - 72 % BAND NEUTROPHILS 1 (H) <1 % LYMPH OCYTES 41 (H) 18 - 40 % MONOCYTES 8 2 - 12 % METAMYELOCYTES 3 (H) 0 % MYELOCYTES 8 (H ) 0 % NRBC 2.0 (H) 0 PER 100 WBC RBC COMMENTS 1+ANISOCYTOSIS RBC COMMENTS 1+MACROCYTOS IS PLATELET ESTIMATE ADEQUATE DF MANUALGLUCOSE, POC Collection Time: 08/01 5:55 AMResult Value Ref Range Glucose, bedside 115 (H) 65 - 110 MG/DLGLUCOSE, P OC Collection Time: 12/17/18 1:28 PMResult Value Ref Range Glucose, bedside 101 65 - 110 MG/DLABG:Recent Labs [id number] 7.36PCO2 56*PO2 75*HCO3 32*Recent Glucos e Results:Lab ResultsComponent Value Date/Time GLU 104 12/17/2018 03:01 AM GL UCPOC 101 12/17/2018 01:28 PM GLUCPOC 115 (H) 12/17/2018 05:55 AM GLUCPOC 105 12/17/19 19 11:57 PMCULTURES:All Micro Results Procedure Component Value Units Date/Patria e CULTURE, BLOOD [[id number]] Collected: 12/12/181939 Order Status: Completed S pecimen: Blood Updated: 12/17/18642 Special Requests: NO SPECIAL REQUESTS C ulture result: NO GROWTH 5 DAYS CULTURE, BLOOD [[id number]] Collected: 12/12/18 1 940 Order Status: Completed Specimen: Blood Updated: 12/17/18642 Special Request s: NO SPECIAL REQUESTS Culture result: NO GROWTH 5 DAYS CULTURE, URINE [[id number]] Collected: 12/12/182003 Order Status: Completed Specimen: Urine Updated: 05/03 Special Requests: NO SPECIAL REQUESTS Culture result: NO GROWTH 1 DA Y CULTURE, URINE [[id number]] Order Status: Sent Specimen: Cath UrineXR Results (mo st recent):Results from Hospital Encounter encounter on 12/12/18XR CHEST PORT Narra tive History:Respiratory difficulty.FINDINGS:A frontal portable v iew of the chest is compared to the prior study from earlierin the same day.EKG le ads overlie the chest.The cardiac silhouette is normal in size. The left lung is sudhakar r. The right lungis poorly evaluated due to significant rotation. The possibility of rightbasilar infiltrate or atelectatic change cannot be excluded. Mediastinal a ndhilar structures are poorly evaluated as well. Impression IMPRESSION:Study quite limited due to rotation. Opacity at the right lung base may beinfiltrative or atelecta tic in nature.CT Results (most recent):Results from Hospital Encounter encounter on 12/12/18CT CHEST WO CONT Narrative History:Respiratory difficulty .FINDINGS:CT scanning of the chest was performed helically from the lung apices to theupper abdomen without intravenous contrast material. Sagittal and coronalr econstructed images are submitted. Scanning was performed utilizing doselowering kevin hniques and is compared to the prior study of 11/08/2018.The study is quite limited by patient positioning.Evaluation of thoracic vascular structures is limited without i ntravenouscontrast material does not reveal evidence of aneurysmal dilatation or def initeCT evidence of dissection. Coronary artery calcification is seen. There ismi nimal calcification of the aortic arch. There is minimal calcification of thedescendin g thoracic aorta.There is no definite evidence of any pathologically enlarged lymph node in thevisualized portions of the mediastinum or axillae.Evaluation of pul monary parenchymal structures reveals some atelectatic changein the right upper lob e. There is a small left pleural effusion as well as leftbasilar atelectatic change. There is some patchy opacity within the right middlelobe and right lower lobe which co uld also be infiltrative in nature.Limited evaluation of upper abdominal structures is unremarkable.There is deviation of mediastinal structures to the right. Thi s could be asresult of atelectatic change within the right lung. This has been see npreviously and is unchanged. Impression IMPRESSION:Extremely limited study by pa tient positioning.Deviation of mediastinal structures to the right as has been seen on priorstudies.Left pleural effusion.Bilateral infiltrates and atele ctasis, greater on the right than the left.Images:@[email or web address]@ HELP TEXTThis SmartLink requires a parameter for processing. Parameters are variableswhic h can be added to the original SmartLink name. This allows you to requestspecific information by giving the SmartLink precise direction.The BSHSILAST[facility] SmartLink accepts (as a parameter) an external procedure IDor an anatomical region. Typ ically, this external ID would be the CPT code.You can also request the number of procedures to be displayed by this SmartLink.To indicate the number, type t he procedure ID or anatomical regions followed bya colon and then the number o f procedures. To display all occurences for thatparticular procedure ID/anatomical r egions, type an asterisk in place of thenumber. To obtain only the last occur ence, type the procedure ID/anatomicalregions without the colon, number, or asterisk.T his SmartLink can display other procedures in the same procedure category if aparamete r is set.The SmartLink will display the last x cases of the procedure or anatomicalre gions you entered.Example: .BSHSILASTIMGCAT[[id number]:3This example wo uld display results for the last three orders with an externalprocedure ID of [id number] he patient is: [] acutely ill Risk of deterioration: [] moderate [x] criticall y ill [x] highActive Problems: Pneumonia (11/08/2018) Sepsis due to undetermined organism (HCC) (12/12/2018)IMPRESSION:Mr. Carlin is a 68 y.o. year old male who is being seen for ACUTE RESPIRATORYSILURE.Evelio Carlin is a 68 y.o. male who has been seen for respfailure.pneumonia,recently discharge d..Patient with MR,aspiration pneumonia,dysphagia,s/p peg placement,CO PD,pulmonaryembolism,schizophrenia was transferred from the long-term for fe [id number],shortness of breath and tachycardia.Patient is non verbal,unable toprovide history.History obtained from chart review.He was started on IVcefepim e,solumedrol and given a dose of IV vancomycin as per records from [place].Hewas afebrile on arrival to the ER with elevated lactic acid of 5.3with respiratory distr ess.course reviewed. 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) Pneumonia Psychiatric disorder Pulmonary emboli (HCC) Sc hizophrenia (HCC) ACUTE RESPIRATORY FAILURE METABOLIC ENCEPHALOPATHY pLAN STAT ABG SHOWS PH 7.3, PCO2 = 68 , PO2 = 76 , HCO3 = 40UNCOMPENSATED AC, RESPIRATOR Y ,ACIDOSIS, CH RESPIRATORY ACIDOSIS , METABOLICALKALOSIS , AND NOR MOXEMIA ATTACH TO BIPAP 14 / 7 CM , RATE = 18 / MT , FIO2 = 50 % REPEAT CAT SCAN OF [facility] ST R/ O ATELECTASIS RT L L INCREASE SOLUMEDROL 40 MG Q 8 H I V ZOSYN I F HE DETERIORATES MAY NEED INTUBATIONMy assessment, plan of care, findings, medi cations, side effects etc werediscussed with:[x]nursing []PT/OT[x]respiratory th erapy [][]family []Critical Care Provided 45 minutes non procedure based.MD Steve Rayo Name Value Range Interpretation Code Description Data Harriett rce(s) Supporting Document(s ) ID Date Data Source [id number] 12/17/2018 02:45:08 PM EDT [facility] Name Value Range Interpretation Description Data Sup porting Code Source(s) Document(s ) pH of Arterial 7.38 7.35-7.4 [facility] - Good blood 5 [facility] Carbon dioxide 68 mmHg 32-48 Above upper panic [facility] - Good [Partial limits Taoist pressure] in Hospital Arterial blood Oxygen 76 mmHg 83-108 Below low normal [facility] - Good [Partial Taoist pressure] in Hospital Arterial blood Carbon 42 19-24 Above high normal BSS - Good dioxide, total mmol/L Taoist [Moles/volume] Hospital in Arterial blood Bicarbonate 40 21-28 Above high normal [facility] - Go od [Moles/volume] mmol/L Taoist in Arterial Hospital blood Oxygen 97 % 94-98 [facility] - Good saturation in [facility] Base excess in 12.0 0-3 Above high normal [facility] - Good Arterial blood mmol/L Taoist by calculation Hospital Body site [facility] - Good [facility] Arterial [facility] - Good patency Wrist Taoist artery --pre Hospital arterial puncture NASAL O23 Respiratory rate 3 [facility] CALLED TO AND READ BACK BYDR. MONAE at 1442 by HOA SANDERS [id number] ID Date Data Source [id number] 12/17/2018 01:40:51 PM EDT [facility] Name Value Range Interpretation Description Data Sup porting Code Source(s) Document(s ) Glucose 101 MG/DL 65-110 [facility] - Good [Mass/volume] Taoist in Blood by Hospital Automated test strip ID Date Data Source [id number] 12/17/2018 01:17:33 PM EDT [facility] Problem: Nutrition DeficitGoal: *Optimiz e nutritional statusDescriptionPt to progress towards meeting >80% nutrient needs with in 3-7 daysOutcome: Progressing Towards GoalContinue Pulmocare bolus, 5 cans gabriele ly (1775 kcal, 74 g PRO, 125 g carb, 111 gfat, 930 ml free water) with 85 ml free water flush before and after each bolus Name Value Range Interpretation Code Description Data Harriett rce(s) Supporting Document(s ) ID Date Data Source [id number] 12/17/2018 01:16:36 PM EDT [facility] NUTRITIONFollow Up NoteSubjective: RN re ports pt tolerating bolus feedings.Nutrition Rx: Pulmocare bolus q 4 hr (5x), 85 mL f ree water before and aftereach bolusLabs: POC glu 115 Creat 0.51Medications reviewed. Receiving Solu-Medrol.Skin: 2+ LUE, 1+ RUE, trace LLE, RLE edema; butch score 10GI: G-tube, last BM 12/16, softWeight: 57.6 kg (up 2.1 kg since initial assessment- changed units; EN at goal)Nutrition Diagnosis: remains the same (Increased protein and energy needs)Continue Pulmocare bolus, 5 cans daily (1775 kcal, 74 g PRO, 125 g carb, 111 gfat, 930 ml free water) with 85 ml free water flush before and after each bolusW ill continue to monitor Skin integrity and EN.Discharge Planning: [facility] Name Value Range Interpretation Code Description Data Harriett rce(s) Supporting Document(s ) ID Date Data Source [id number] 12/17/2018 11:12:03 AM EDT [facility] ID Progress Note12/17/2018Subjective:Patie nt is non verbal,unable to provide any historyAfebrile .Blood and urine Culture s negative so far.WBC at 12.2K (pt on steriods)Objective:Vitals:Patient Vitals for the past 24 hrs: BP Temp Pulse Resp SpO2 Gxeiuq33/04/19 0739 104/64 98.1 F (36.7 C) (!) 105 20 92 % -12/17/18 0501 120/86 97.3 F (36.3 C) (!) 114 20 (!) 89 % 57 .6 kg (127 lb)12/17/18 0004 116/67 98 F (36.7 C) (!) 106 20 90 % -12/16/18 2018 106/64 97.6 F (36.4 C) (!) 108 22 96 % -12/16/18 1517 114/69 97.5 F (36.4 C) 97 20 90 % -12/16/18 1127 - - 100 - - -12/16/18 1121 93/60 98.1 F (36.7 C) ( !) 108 20 90 % -Tmax: Temp (24hrs), Av.8 F (36.6 C), Min:97.3 F (36.3 C), Max :98.1 F(36.7 C)Physical Exam:General: Awake non verbal, cooperative, no distre ssMouth/Throat: Dry oral, mucosaNeck: Supple, symmetrical, trachea midline, no adenopa thyLungs: Bilateral breath sounds with basal crackles..Heart: Regular rate and rhythm, S1, S2 normal, no murmurAbdomen: Soft, non-tender. Bowel sounds normal. N o masses, No organomegaly.+feeding tubeBack: No CVA tenderness.Extremities: Extremi ties normal, atraumatic, no cyanosis or edema.Pulses: 2+ and symmetric all extre mities.Skin: Skin color, texture, turgor normal. No rashes or lesionsCurrent Faci lity-Administered MedicationsMedication Dose Route Frequency albuterol-ipratropium ( DUO-NEB) 2.5 MG-0.5 MG/3 ML 3 mL Nebulization Q4H PRN methylPREDNISolone (PF) (SOLU-MEDROL) injection 20 mg 20 mg IntraVENous PCL potassium, sodium phosp hates (NEUTRA-PHOS) packet 1 Packet 1 Packet Oral QID acetylcysteine (MUCOMYST) 100 mg/mL (10 %) nebulizer solution 200 mg 2 mLNebulization BID RT albuterol-ipratro pium (DUO-NEB) 2.5 MG-0.5 MG/3 ML 3 mL Nebulization Q6H RT bacitracin 500 unit /gram packet 1 Packet 1 Packet Topical BID piperacillin-tazobactam (ZOSYN) 3.375 g in 0.9% sodium chloride (MBP/ADV) 100mL MBP 3.375 g IntraVENous Q8H budesonide (PUL MICORT) 500 mcg/2 ml nebulizer suspension 500 mcg NebulizationBID RT ALPRAZolam ( XANAX) tablet 0.5 mg 0.5 mg Per G Tube QHS lamoTRIgine (LaMICtal) tablet 50 mg 50 mg Per G Tube BID valproic acid (as sodium salt) (DEPAKENE) 250 mg/5 mL (5 mL) oral solution 750mg 750 mg Per G Tube BID cinacalcet (SENSIPAR) tablet 60 mg 60 m g Oral DAILY pantoprazole (PROTONIX) granules for oral suspension 40 mg 40 m g Per G TubeACB heparin (porcine) injection 5,000 Units 5,000 Units SubCUTAneous Q1 2H sodium chloride (NS) flush 5-10 mL 5-10 mL IntraVENous PRNLabs:Recent Labs 12/16/1902WBC 12.2* 9.4 5.5HGB 13.0* 12.6* 10.7*PLT 337 277 234BUN 16 14 15CREA 0.51* 0.40* 0.26*Cultures:Lab ResultsComponent Value Date/Time Culture result: NO GROWTH 1 DAY 12/12/2018 08:04 PM Culture result: NO G ROWTH 5 DAYS 12/12/2018 07:40 PM Culture result: NO GROWTH 5 DAYS 12/12/2018 07:4 0 PMRadiology:No results found.Assessment: Sepsis. Aspiration pneumonia. Acute re spiratory failure with hypoxia and hypercapnia. Acute COPD exacerbation. Dysphagia. Atelectasis. Plan:1. Continue IV zosyn.2. Follow cultures.Monica alonso, MDSeptember [id number] AM Name Value Range Interpretation Code Description Data Harriett rce(s) Supporting Document(s ) ID Date Data Source [id number] 12/17/2018 10:47:18 AM EDT [facility] EVER bedside visit Name Value Range Interpretation Code Description Data Harriett rce(s) Supporting Document(s ) ID Date Data Source [id number] 12/17/2018 10:06:34 AM EDT [facility] Progress NOTENAME: Evelio AbrahambeinDOB : 1950MRN: [id number]/Time: 12/17/2018 9:15 AMHISTORY OF PRESENT ILLNE SS:Evelio is a 68 y.o. male who presents from [facility] with medical history ofDysphag ia with recent admission s/p surgical peg placement on 11/17/18, severeintellectual disability, Chronic respiratory failure, hyperparathyroidunspecified, personal h/ o pulmonary embolus, anxiety disorder, kyphosis andschizophrenia.The patient is unable to provide a history due to his mental disability. Thenursing home staf f reporting pt had a cough, fever to 103 F and hypoxia. ChestXR showed suspicion f or a Pneumonia. Pt was given Iv Cefepime, Vancomycin andSolu- medrol. Pt was later found minimally responsive and was sent to the ED. In the ED, chest xr showed some streaky changes at the lung bases. ABG showedpH 7.40/55/56/34/ O2 SAT 90 % on 2 LPM and Lactic Acid was elevated to 5.5. Thepatient was given Iv Zosyn, Solu-Medr ol, nebulizer and IVF.Repeat lactic acid was still elevated at 5.3.The patient was ad mitted with enxounter diagnosis of Sepsis due to unspecifiedorganism, Pnermonia, unspe cified and COPD exacerbation.The patient was seen and examined at bedside he is less lethargic, nonverbbal.He is coughing. 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 No pertinent surgical history.Social HistoryTobacco Use Smoki ng status: Never Smoker Smokeless tobacco: Never UsedSubstance Use Topics Alcohol use: NoHistory reviewed. No pertinent family history.No Known AllergiesPrior to Admis elio medicationsMedication Sig Start Date End Date Taking? Authorizing Providerpantopr azole (PROTONIX) 40 mg granules for oral suspension 40 mg by Per G Tuberoute Kyleigh y (before breakfast). 11/28/18 Yes Mili Hills, DObudesonide (PULMICORT) 0.5 mg /2 mL nbsp 2 mL by Nebulization route two (2) timesa day for 30 days. 11/27/18 12/27/18 Yes Mili Hills, DOmultivitamin (ONE A DAY) tablet Take 1 Tab by mouth daily. Yes Provider,Historicalclorazepate (TRANXENE) 3.75 mg tablet Take by mouth nightly. Yes Provider,Historicalalbuterol-ipratropium (DUO-NEB) 2.5 mg-0.5 mg/3 ml nebu 3 mL by Nebulizationroute every six (6) hours as needed. Yes Provider, HistoricallamoTRIgine (LAMICTAL) 25 mg t ablet Take 50 mg by mouth two (2) times a day.Yes Provider, Historicalcinacalcet ( SENSIPAR) 30 mg tablet Take 60 mg by mouth daily. Yes Provider,Historicalvalproat e (DEPAKENE) 250 mg/5 mL syrup Take 750 mg by mouth two (2) times a day.Yes Provider, HistoricalREVIEW OF SYSTEMS: [x] Unable to obtain ROS due to patient factors.Object britni:VITALS:Visit VitalsBP 104/64 (BP 1 Location: Left arm, BP Patient Position: At rest;Head of bedelevated (Comment degrees);Supine)Pulse (!) 105Temp 98.1 F (36.7 C)Resp 20Ht 5' 2" (1.575 m)Wt 57.6 kg (127 lb)SpO2 92%BMI 23.23 kg/m PHYSIC AL EXAM:General: Alert, cooperative, no distress, appears stated age.Head: Nor mocephalic, without obvious abnormality, atraumatic.Eyes: Conjunctivae clear, a nicteric sclerae. Pupils are equalThroat: Lips, mucosa, and tongue normal. No Thr ushNeck: Supple, symmetrical, no adenopathy, no carotid bruit and no JVD .Back: Symmetric, No CVA tenderness.Lungs: Bilateral air entry .. Decreased breath sounds RUL. No Wheezing orRhonchi. No rales.Chest wall: No Acc essory muscle use.Heart: Regular rate and rhythm, no murmur, or rubAbdomen: Pos itive peg, non-tender. Not distended. Bowel sounds normal. NomassesExtremities: Extr emities normal, atraumatic, No cyanosis. No edema. No clubbingSkin: Warm and dry . No rashes or lesions. Not JaundicedLymph nodes: Cervical, supraclavicular normal. Psych: Not anxious or agitated.Neurologic: EOMs intact. No facial asymmetry. No aph greg or slurred speech.Generalized weakness, wheel chair bound., Alert and Awake, non verbal. .LAB DATA REVIEWED:Recent Results (from the past 24 hour(s))GLUCOSE, POC C ollection Time: 12/16/18 12:17 PMResult Value Ref Range Glucose, bedside 149 (H) 65 - 110 MG/DLGLUCOSE, POC Collection Time: 12/16/18 5:39 PMResult Value Ref Range Glucose, bedside 86 65 - 110 MG/DLGLUCOSE, POC Collection Time: 12/16/18 11:57 PMRe sult Value Ref Range Glucose, bedside 105 65 - 110 MG/DLRENAL FUNCTION PANEL Collecti on Time: 12/17/18 3:01 AMResult Value Ref Range Sodium 142 136 - 145 mmol/L Potass ium 4.3 3.5 - 5.1 mmol/L Chloride 101 98 - 107 mmol/L CO2 36 (H) 21 - 32 mmol/L Ani on gap 9 (L) 10 - 20 mmol/L Glucose 104 74 - 106 mg/dL BUN 16 7 - 18 mg/dL Creatinine 0.51 (L) 0.70 - 1.30 mg/dL GFR est AA >60 >60 ml/min/1.73m2 GFR est non-AA >60 >60 ml/min/1.73m2 Calcium 8.9 8.5 - 10.1 mg/dL Phosphorus 4.3 2.5 - 4.9 mg/dL Albumin 2 .3 (L) 3.5 - 4.7 g/dLMAGNESIUM Collection Time: 12/17/18 3:01 AMResult Value Ref Range Magnesium 2.4 1.6 - 2.6 mg/dLCBC WITH AUTOMATED DIFF Collection Time: 12/17/18 3:01 AMResult Value Ref Range WBC 12.2 (H) 4.8 - 10.6 K/uL RBC 3.86 (L) 4.70 - 6.00 M/uL HGB 13.0 (L) 14.0 - 18.0 g/dL HCT 40.8 (L) 42.0 - 52.0 % MCV 105.7 (H) 81.0 - 9 4.0 FL MCH 33.7 27.0 - 35.0 PG MCHC 31.9 30.7 - 37.3 g/dL RDW 17.0 (H) 11.5 - 14.0 % P LATELET 337 130 - 400 K/uL MPV 9.9 9.2 - 11.8 FL NEUTROPHILS 39 (L) 48 - 72 % BAND KISHA TROPHILS 1 (H) <1 % LYMPHOCYTES 41 (H) 18 - 40 % MONOCYTES 8 2 - 12 % METAMYELOCYTES 3 (H) 0 % MYELOCYTES 8 (H) 0 % NRBC 2.0 (H) 0 PER 100 WBC RBC COMMENTS 1+ANISOCYTOSI S RBC COMMENTS 1+MACROCYTOSIS PLATELET ESTIMATE ADEQUATE DF MANUALGLUCOSE, POC Collection Time: 12/17/18 5:55 AMResult Value Ref Range Glucose, bedside 115 (H) 65 - 110 MG/DLAssessment/Plan:Active Problems: Pneumonia (11/08/2018) Sepsis due to undetermined organism (HCC) (12/12/2018) Acute Respiratory Failure wi th hypercapnia and Hypoxia Metabolic Acidosis - Resolving Sepsis -poa Metabolic Enceph alopathy Aspiration Pneumonia Acute COPD exacerbation Dysphagia s/p surgically pl joan,emt of peg Mentally challenged Seizure disorder Hyperparathyroid PLAN:Risk of deterioration: []Low []Moderate [x]High1. Keep in ECU2. IV fluids3.O2 NC/BIPAP4. Iv Zosyn5. Pulmonary follow up6. ID follow up7. CT chest8. 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 Re port given with SBAR, Kardex, Intake/Output, MAR and RecentResults. Name Value Range Interpretation Code Description Data Harriett rce(s) Supporting Document(s ) ID Date Data Source [id number] 12/17/2018 06:06:30 AM EDT [facility] Name Value Range Interpretation Description Data Sup porting Code Source(s) Document(s ) Glucose 115 MG/DL 65-110 Above high normal [facility] - Good [Mass/volume] Taoist in Blood by Hospital Automated test strip ID Date Data Source [id number] 12/17/2018 05:42:36 AM EDT [facility] Name Value Range Interpretation Description Data Sup porting Code Source(s) Document(s ) Sodium 142 136-145 [facility] - Good [Moles/volume] mmol/L Taoist in Serum or Hospital Plasma Potassium 4.3 3.5-5.1 [facility] - Good [Moles/volume] mmol/L Taoist in Serum or Hospital Plasma Chloride 101 98-107 [facility] - Good [Moles/volume] mmol/L Taoist in Serum or Hospital Plasma Carbon 36 21-32 Above high normal [facility] - Good dioxide, total mmol/L Taoist [Moles/volume] Hospital in Serum or Plasma Anion gap in 9 mmol/L 10-20 Below low normal [facility] - Go od Serum or Taoist Plasma Hospital Glucose 104 74-106 [facility] - Good [Mass/volume] mg/dL Taoist in Serum or Hospital Plasma Urea nitrogen 16 mg/dL 7-18 [facility] - Good [Mass/volume] Taoist in Serum or Hospital Plasma Creatinine 0.51 0.70-1.3 Below low normal [facility] - Good [Mass/volume] mg/dL 0 Taoist in Serum or Hospital Plasma Glomerular >60 [facility] - Good filtration Taoist rate/1.73 sq M Hospital predicted among blacks [Volume Rate/Area] in Serum or Plasma by Creatinine-bas ed formula (MDRD) Glomerular >60 [facility] - Good filtration Taoist rate/1.73 sq M Hospital predicted among non-blacks [Volume Rate/Area] in Serum or Plasma by Creatinine-bas ed formula (MDRD) Calcium 8.9 8.5-10.1 [facility] - Good [Mass/volume] mg/dL Taoist in Serum or Hospital Plasma Phosphate 4.3 2.5-4.9 [facility] - Good [Mass/volume] mg/dL Taoist in Serum or Hospital Plasma Albumin 2.3 g/dL 3.5-4.7 Below low normal [facility] - Good [Mass/volume] Taoist in Serum or Hospital Plasma by Bromocresol purple (BCP) dye binding method ID Date Data Source [id number] 12/17/2018 05:42:36 AM [facility] Name Value Range Interpretation Description Data Sup porting Code Source(s) Document(s ) Magnesium 2.4 mg/dL 1.6-2.6 [facility] - Good [Mass/volume] Taoist in Serum or Hospital Plasma ID Date Data Source [id number] 12/17/2018 09:14:21 AM EDT [facility] Name Value Range Interpretation Description Data Sup porting Code Source(s) Document(s ) Leukocytes 12.2 4.8-10.6 Above high normal [facility] - [#/volume] in K/uL Good Blood by Taoist Automated count [facility] Erythrocytes 3.86 4.70-6.0 Below low normal [facility] - [#/volume] in M/uL 0 Good Blood by Taoist Automated count [facility] Hemoglobin 13.0 14.0-18. Below low normal [facility] - [Mass/volume] in g/dL 0 Good Blood [facility] Hematocrit 40.8 % 42.0-52. Below low normal [facility] - [Volume 0 Good Fraction] of Taoist Blood by Hospital Automated count Erythrocyte mean 105.7 FL 81.0-94. Above high normal [facility] - corpuscular 0 Good volume [Entitic Taoist volume] by Hospital Automated count Erythrocyte mean 33.7 PG 27.0-35. [facility] - corpuscular 0 Good hemoglobin Taoist [Entitic mass] Hospital by Automated count Erythrocyte mean 31.9 30.7-37. [facility] - corpuscular g/dL 3 Good hemoglobin Taoist concentration Hospital [Mass/volume] by Automated count Erythrocyte 17.0 % 11.5-14. Above high normal [facility] - distribution 0 Good width [Ratio] by Taoist Automated count Hospital Platelets 337 K/uL 130-400 [facility] - [#/volume] in Good Blood by Taoist Automated count Hospital Platelet mean 9.9 FL 9.2-11.8 [facility] - volume [Entitic Good volume] in Blood Taoist by Automated Hospital count Segmented 39 % 48-72 Below low normal [facility] - neutrophils/100 Good leukocytes in Taoist Blood by Manual Hospital count Band form 1 % <1 Above high normal [facility] - neutrophils/100 Good leukocytes in Taoist Blood by Manual Hospital count Lymphocytes/100 41 % 18-40 Above high normal [facility] - leukocytes in Good Blood by Manual Taoist count Hospital Monocytes/100 8 % 2-12 [facility] - leukocytes in Good Blood by Manual Taoist count [facility] Metamyelocytes/1 3 % 0 Above high normal [facility] - 00 leukocytes in Good Blood by Manual Taoist count Hospital Myelocytes/100 8 % 0 Above high normal [facility] - leukocytes in Good Blood by Manual Taoist count Hospital Nucleated 2.0 PER 0 Above high normal [facility] - erythrocytes/100 100 WBC Good leukocytes Taoist [Ratio] in Blood Hospital 1+ANISOCYTOSIS1+MACROCYTOSIS Platelet adequacy [Presence] in Blood by [facility] Light microscopy Differential cell count method - Blood [facility] ID Date Data Source [id number] 12/17/2018 01:58:19 AM EDT [facility] Problem: Falls - Risk ofGoal: *Absence o f FallsDescriptionDocument Samra Fall Risk and appropriate interventions in the [facility] wsheet.Outcome: Progressing Towards GoalNote:Fall Risk Interventions:Mentati on Interventions: Bed/chair exit alarm, Door open when patientunattended, More freque nt rounding, Toileting rounds, Update white boardMedication Interventions: Evaluate medications/consider consulting pharmacyElimination Interventions: Toile ting schedule/hourly roundsProblem: Pressure Injury - Risk ofGoal: *Prevention of pre ssure injuryDescriptionDocument Butch Scale and appropriate interventions in the jhon wsheet.Outcome: Progressing Towards GoalNote:Pressure Injury Interventions:S ensory Interventions: Assess changes in LOC, Assess need for specialty bed,Avoid patricio edie massage over bony prominences, Check visual cues for pain, Floatheels, Keep l inens dry and wrinkle-free, Minimize linen layers, Pressureredistribution bed/mattr ess (bed type), Turn and reposition approx. every twohours (pillows and wedges if ne eded)Moisture Interventions: Absorbent underpads, Apply protective barrier, cre amsand emollients, Assess need for specialty bed, Check for incontinence Q2 hoursand as needed, Limit adult briefs, Minimize layersActivity Interventions: Pressure r edistribution bed/mattress(bed type)Mobility Interventions: Float heels, Pressure red istribution bed/mattress (bedtype), Turn and reposition approx. every two hours(ariel w and wedges)Nutrition Interventions: Document food/fluid/supplement intakeFri ction and Shear Interventions: Apply protective barrier, creams andemollients , Foam dressings/transparent film/skin sealants, Lift sheet, MinimizelayersProb olu: Nutrition DeficitGoal: *Optimize nutritional statusDescriptionPt to progr ess towards meeting >80% nutrient needs within 3-7 daysOutcome: Progressing T[place] rds Goal Name Value Range Interpretation Code Description Data Harritet rce(s) Supporting Document(s ) ID Date Data Source [id number] 12/17/2018 12:21:36 AM EDT [facility] Name Value Range Interpretation Description Data Sup porting Code Source(s) Document(s ) Glucose 105 MG/DL 65-110 [facility] - Good [Mass/volume] Taoist in Blood by Hospital Automated test strip ID Date Data Source [id number] 12/16/2018 07:12:08 PM EDT [facility] Bedside and Verbal shift change report g iven to Teresa Alonzo, RN (oncoming nurse)by Aaliyah Dyson, NANCY (offgoing nurse). Report given with SBAR, Kardex,Intake/Output, MAR and Recent Res ults. Name Value Range Interpretation Code Description Data Harriett rce(s) Supporting Document(s ) ID Date Data Source [id number] 12/16/2018 05:53:18 PM EDT [facility] Name Value Range Interpretation Description Data Sup porting Code Source(s) Document(s ) Glucose 86 MG/DL 65-110 [facility] - Good [Mass/volume] Taoist in Blood by [facility] Automated test strip ID Date Data Source [id number] 12/16/2018 04:42:53 PM EDT [facility] ID Progress Note12/16/2018Subjective:Shauna nt is non verbal,unable to provide any historyAfebrile .Cultures negative so fa r..Objective:Vitals:Patient Vitals for the past 24 hrs: BP Temp Pulse Resp SpO2 Earl t12/16/18 1517 114/69 97.5 F (36.4 C) (!) 102 20 90 % -12/16/18 1127 - - 100 - - - 12/16/18 1121 93/60 98.1 F (36.7 C) (!) 108 20 90 % -12/16/18 0752 - - - - 92 % -07/01 0709 104/72 97.8 F (36.6 C) (!) 105 20 91 % -12/16/18 0650 - - - - - 58 kg ( 127 lb 12.8 oz)12/16/18 0358 98/58 97 F (36.1 C) (!) 107 22 92 % -12/15/182008 - - - - 95 % -12/15/181954 103/67 98 F (36.7 C) 67 22 90 % -Tmax: Temp (24hrs ), Av.7 F (36.5 C), Min:97 F (36.1 C), Max:98.1 F(36.7 C)Physical Exam:Ge neral: Awake non verbal, cooperative, no distressMouth/Throat: Dry oral, mucosaNe ck: Supple, symmetrical, trachea midline, no adenopathyLungs: Bilateral breath soun ds with basal crackles..Heart: Regular rate and rhythm, S1, S2 normal, no murmurAbdo men: Soft, non-tender. Bowel sounds normal. No masses, No organomegaly.+feeding tub eBack: No CVA tenderness.Extremities: Extremities normal, atraumatic, no cyano sis or edema.Pulses: 2+ and symmetric all extremities.Skin: Skin color, texture, t urgor normal. No rashes or lesionsCurrent Facility-Administered MedicationsMedicat ion Dose Route Frequency albuterol-ipratropium (DUO-NEB) 2.5 MG-0 .5 MG/3 ML 3 mL Nebulization Q4H PRN [START ON 12/17/2018] methylPREDNISolone (PF) (SO [place]-MEDROL) injection 20 mg 20mg IntraVENous PCL potassium, sodium phosphates (NEUTR A-PHOS) packet 1 Packet 1 Packet Oral QID acetylcysteine (MUCOMYST) 100 mg/mL (10 %) nebulizer solution 200 mg 2 mLNebulization BID RT albuterol-ipratro pium (DUO-NEB) 2.5 MG-0.5 MG/3 ML 3 mL Nebulization Q6H RT bacitracin 500 unit /gram packet 1 Packet 1 Packet Topical BID piperacillin-tazobactam (ZOSYN) 3.375 g in 0.9% sodium chloride (MBP/ADV) 100mL MBP 3.375 g IntraVENous Q8H budesonide (PUL MICORT) 500 mcg/2 ml nebulizer suspension 500 mcg NebulizationBID RT ALPRAZolam ( XANAX) tablet 0.5 mg 0.5 mg Per G Tube QHS lamoTRIgine (LaMICtal) tablet 50 mg 50 mg Per G Tube BID valproic acid (as sodium salt) (DEPAKENE) 250 mg/5 mL (5 mL) oral solution 750mg 750 mg Per G Tube BID cinacalcet (SENSIPAR) tablet 60 mg 60 m g Oral DAILY pantoprazole (PROTONIX) granules for oral suspension 40 mg 40 m g Per G TubeACB heparin (porcine) injection 5,000 Units 5,000 Units SubCUTAneous Q1 2H sodium chloride (NS) flush 5-10 mL 5-10 mL IntraVENous PRNLabs:Recent Labs 12/15/1902WBC 9.4 5.5 8.6HGB 12.6* 10.7* 10.8*PLT 277 234 205B UN 14 15 13CREA 0.40* 0.26* 0.34*Cultures:Lab ResultsComponent Value Date/Time Culture result: NO GROWTH 1 DAY 12/12/2018 08:04 PM Culture result: NO GROWTH 4 DAYS 019 07:40 PM Culture result: NO GROWTH 4 DAYS 12/12/2018 07:40 PMRadiology:No results found.Assessment: Sepsis. Aspiration pneumonia. Acute respiratory failure wi th hypoxia and hypercapnia. Acute COPD exacerbation. Dysphagia. Atelectasis. Plan:1. Continue IV zosyn.2. Follow cultures.Palomo Beauchamp 94:41 PM Name Value Range Interpretation Code Description Data Harriett rce(s) Supporting Document(s ) ID Date Data Source [id number] 12/16/2018 03:21:39 PM EDT [facility] PULMONARY/ CCM- Consult NotePatient: Ivelisse Carlin Sex: male DOA: 12/12/2018Date of : 1 Age: 68 y.o. LOS: LOS: 4 daysHPI: kassie Carlin is a 68 y.o. male who has been seen for respfailure.pneumonia,recently discharge d..Patient with MR,aspiration pneumonia,dysphagia,s/p peg placement,CO PD,pulmonaryembolism,schizophrenia was transferred from the long-term for fe [id number],shortness of breath and tachycardia.Patient is non verbal,unable toprovide history.History obtained from chart review.He was started on IVcefepim e,solumedrol and given a dose of IV vancomycin as per records from [place].Hewas afebrile on arrival to the ER with elevated lactic acid of 5.3 withrespiratory distr ess.course reviewed.Breathing better today.Past Medical History:Diagnosis Pan e Chronic obstructive pulmonary disease (HCC) GERD (gastroesophageal reflux dis ease) Hyperparathyroidism (HCC) Mental retardation 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 Authoriz ing Providerpantoprazole (PROTONIX) 40 mg granules for oral suspension 40 mg by Pe r G Tuberoute Daily (before breakfast). 11/28/18 Yes Mili Hills DObudesoni de (PULMICORT) 0.5 mg/2 mL nbsp 2 mL by Nebulization route two (2) timesa day fo r 30 days. 11/27/18 12/27/18 Yes Mili Hills, DOmultivitamin (ONE A DAY) tabl et Take 1 Tab by mouth daily. Yes Provider,Historicalclorazepate (TRANXENE ) 3.75 mg tablet Take by mouth nightly. Yes Provider,Historicalalbuterol-ipratro pium (DUO-NEB) 2.5 mg-0.5 mg/3 ml nebu 3 mL by Nebulizationroute every six (6) hours as needed. Yes Provider, HistoricallamoTRIgine (LAMICTAL) 25 mg t ablet Take 50 mg by mouth two (2) times a day.Yes Provider, Historicalcinacalcet ( SENSIPAR) 30 mg tablet Take 60 mg by mouth daily. Yes Provider,Historicalvalproat e (DEPAKENE) 250 mg/5 mL syrup Take 750 mg by mouth two (2) times a day.Yes Provider, HistoricalNo Known AllergiesHistory reviewed. No pertinent surgical history.History re viewed. No pertinent family history.Social HistorySocioeconomic History Marital st atus: SINGLE Spouse name: Not on file Number of children: Not on file Years o f education: Not on file Highest education level: Not on fileTobacco Use Smoking s tatus: Never Smoker Smokeless tobacco: Never UsedSubstance and Sexual Activity Alcoh ol use: No Drug use: NoReview of SystemsPertinent items are noted in the History of Present Illness.Physical Exam:Current medications:Current Facilit y-Administered Medications: albuterol-ipratropium (DUO-NEB) 2.5 MG-0 .5 MG/3 ML, 3 mL, Nebulization, Q4HPRN, Mili Hills DO, 3 mL at 12/16/18 04 17 [START ON 12/17/2018] methylPREDNISolone (PF) (SOLU-MEDROL) injection 20 mg, 20mg , IntraVENous, PCL, Stella Hamilton MD potassium, sodium phosphates (NEUTRA-JOCY S) packet 1 Packet, 1 Packet, Oral,QID, Krystian Monae MD, 1 Packet at 12/16/18 1203 acetylcysteine (MUCOMYST) 100 mg/mL (10 %) nebulizer solution 200 mg, 2 mL,N ebulization, BID RT, Mili Hills DO, 400 mg at 12/16/18 0750 albuterol-ipratrop ium (DUO-NEB) 2.5 MG-0.5 MG/3 ML, 3 mL, Nebulization, Q6HRT, Mili Hills DO , 3 mL at 12/16/18 1451 bacitracin 500 unit/gram packet 1 Packet, 1 Packet, Top ical, BID, Mili Hills DO, 1 Packet at 12/16/18 0809 piperacillin-tazobactam (ZOSYN) 3.375 g in 0.9% sodium chloride (MBP/ADV) 100mL MBP, 3.375 g, IntraVENou s, Q8H, Mili Hills DO, Last Rate: 25 mL/hr at12/16/18 1136, 3.375 g at 1136 budesonide (PULMICORT) 500 mcg/2 ml nebulizer suspension, 500 mcg,Nebulizati on, BID RT, Mili Hills DO, 500 mcg at 12/16/18 0749 ALPRAZolam (XANAX) table t 0.5 mg, 0.5 mg, Per G Tube, QHS, Miil Hills DO, 0.5 mg at 12/15/18 2136 la moTRIgine (LaMICtal) tablet 50 mg, 50 mg, Per G Tube, BID, Mili Hills DO, 50 mg a t 12/16/18 0809 valproic acid (as sodium salt) (DEPAKENE) 250 mg/5 mL (5 mL) oral svlrakan706 mg, 750 mg, Per G Tube, BID, Mili Hills DO, 750 mg at 12/16/18 0809 cinacalcet (SENSIPAR) tablet 60 mg, 60 mg, Oral, DAILY, Mili Hills DO,60 mg at 12/16/18 0819 pantoprazole (PROTONIX) granules for oral suspension 40 mg, 40 m g, Per GTube, ACB, Mili Hills DO, 40 mg at 12/16/18 0647 heparin (porcine) inj ection 5,000 Units, 5,000 Units, SubCUTAneous, Q12H,Mili Hills DO, 5,000 Units at 12/16/18 1137 sodium chloride (NS) flush 5-10 mL, 5-10 mL, In traVENous, PRN, Wes Romero, MDDataVisit VitalsBP 114/69 (BP 1 Locati on: Left arm, BP Patient Position: At rest;Head of bedelevated (Comment degree s))Pulse (!) 102Temp 97.5 F (36.4 C)Resp 20Ht 5' 2" (1.575 m)Wt 58 kg (127 lb 12. 8 oz)SpO2 90%BMI 23.37 kg/m Intake and Output:Date 12/15/18699 - 12/16/18 065 12/16/18699 - 12/17/18 0659Shift 8224-4844 7516-3059 24 Hour Total 0700-1 859 9486-1815 24 Hour TotalINTAKENG/GT 0719 126 4617 920 920 Water Flush Volume (m L) (PEG/Gastrostomy Tube 12/12/18) 390 340 730 340 340 Medication Volume (PEG/Gas trostomy Tube 12/12/18) 300 300 100 100 Intake (ml) (PEG/Gastrostomy Tube ) 480 480 960 480 480Shift Total(mL/kg) 1170(21.1) 820(14.1) 1989(34.3) 920(15.9 ) 920(15.9)OUTPUTUrine(mL/kg/hr) 250(0.4) 250(0.2) Urine Occurrence(s) 1 x 1 x Urine Output (mL) ([REMOVED] Condom Catheter 12/13/18) 250 250Stool Stool Occurrenc e(s) 1 x 1 xShift Total(mL/kg) 250(4.3) 250(4.3)NET 6146 589 8632 920 920Weight (kg) 55.5 58 58 58 58 58Pulse OX:SpO2 Readings from Last 6 Encounters:12/16/18 90%11/27/18 91%09/26/15 96%@LASTSAO2(6)@PHYSICAL EXAM:General: Lethargic,responding.Head: Normocephalic, without obvious abnormality, atraumatic. Eyes: Conjunctivae clear, anicteric sclerae. Pupils are equalNose: Nares n ormal. No drainage or sinus tenderness.Throat: Lips, mucosa, and tongue normal. No ThrushNeck: Supple, symmetrical, no adenopathy, thyroid: no n tender no carotid bruit and no JVD.Back: Symmetric, No CVA tenderness.Lungs: Scattered rhonchi,Chest wall: No tenderness or deformity. No Accessory muscle use.He art: Regular rate and rhythm, no murmur, rub or gallop.Abdomen: Soft, non-tende r. Not distended. Bowel sounds normal. No massesExtremities: Extremities normal, a traumatic, No cyanosis. No edema. No clubbingSkin: Texture, turgor normal . No rashes or lesions. Not JaundicedLymph nodes: Cervical, supraclavicular normal. Neurologic: Lethargic.Most recent labs:Recent Labs 12/15/190212/14/18 0448WBC 9.4 5.5 8.6HGB 12.6* 10.7* 10.8*HCT 40.7* 32.2* 32.6*PLT 277 234 205Recent L abs 12/15/1905NA 141 -- 141 -- 139K 4. 2 -- 3.9 -- 4.2CL 104 -- 106 -- 102CO2 34* 33* 30 < > 33*GLU 105 -- 110* -- 84BUN 14 -- 15 -- 13CREA 0.40* -- 0.26* -- 0.34*CA 8.4* -- 8.0* - - 8.5MG 1.9 -- 1.9 -- 2.0PHOS 2.9 -- 1.9* -- 2.6ALB 2.1* -- 1.9* -- 2.0 * < > = values in this interval not displayed.Recent Labs 4PH 7.36 7.38PCO2 56* 54*PO2 75* 70*HCO3 32* 32*ABG:Recent Labs 12/15/1812/14/19044PH 7.36 7.38PCO2 56* 54*PO2 75* 70*HCO3 32* 32*Cultures:No results f ound for: SDESLab ResultsComponent Value Date/Time Culture result: NO GROWTH 1 DA Y 12/12/2018 08:04 PM Culture result: NO GROWTH 4 DAYS 12/12/2018 07:40 PM Cultur e result: NO GROWTH 4 DAYS 12/12/2018 07:40 PM Culture result: NO GROWTH 2 DAYS 11/2018 09:00 AM Culture result: NO GROWTH 5 DAYS 11/07/2018 08:10 PM Culture result: NO GROWTH 5 DAYS 11/07/2018 08:00 PMImages:Cta Chest W Or W Wo ContResult Date: 11/08/2018Examination: CTA Chest ? PE angiography History: Hypoxia; rule out p neumoniaversus pulmonary embolism Priors: None Technique: Low-dose, multiplanar,h elical CTA chest was performed with bolus IV injection from lung apices tobases. 3D- reformatted images were obtained and reviewed on a dedicated viewingworkstation and di rectly supervised. Contrast: A total of 71 mL of Isovue-370was administered intravenou sly for this procedure. Findings: No evidence ofpulmonary embolism is seen. T here is decreased size of the right hemithorax fromchronic scarring and retr action with mediastinal shift left to right.Additional area of consolidation i s seen in the right lower lobe and suggestssuperimposed pneumonia with subs egmental atelectasis. Subsegmental atelectasisis also noted in the left jorge g base, with pleural parenchymal scarring. Lowlung volumes are seen. No pneumothora x seen. Aorta normal in caliber withoutaneurysm or dissection. Mediastin um no adenopathy. Mediastinal shift is seen inthe left and right as a result of chr onic changes in the right hemithorax.Heart shows no chamber enlargement or pericard ial effusion. No acute fracturesseen in the bony thorax, sternum, manubrium and rib cage. Multiple compressiondeformities are seen in the mid and lower thoracic spine , with superimposedspondyloarthropathy. Cannot exclude acute fracture.Impression : No evidence of pulmonary embolism Right lower lobe pneumoniasuggested. Incidenta l scarring and retraction in the right hemithorax fromremote/chronic inflammato ry disease and/or trauma. Bibasilar subsegmentalatelectasis. Report Electron ically Signed By: Pawel Zafar M.D. -11/08/2018 12:40 AMXr Chest PortResult D ate: 11/07/2018XR CHEST PORT CLINICAL INDICATION PROVIDED:. "sob." COMPARISON: . 09/26/2015.FINDINGS:. The pericardial/cardiac silhouette is enlarg ed in the transversedimension. There is no pulmonary vascular congestion or interst itial edema.Linear density in the left lung base and faint densities in the right mi d tolower lung likely represent atelectasis. There is no lobar consolidation oreffusi on. There is no pneumothorax.IMPRESSION:. Bilateral lower lung atelectasis. No donna dence of consolidation oreffusion.Assessment/PlanActive Problem s: Pneumonia (11/08/2018) Sepsis due to undetermined organism (HCC) (12/12/2018) Acute resp failure combined, pneumonia acute copd exacerbationPLAN,Monitoring,bipap p rn for resp distressIvabx as per id,Iv steroids taperbipap prn and at night.Neb S/p peg,feeding started.D/w nursing staff.MARICEL Munsoneptember 2018 The billing code submitted in association with this evaluation also includes theti me to review patient's prior records, communicate with the physician team,obta in corroborating data, and discuss the risk and benefits of the proposedmanagement p frantz with the patient and their family >30 minutes. Name Value Range Interpretation Code Description Data Harriett rce(s) Supporting Document(s ) ID Date Data Source [id number] 12/16/2018 01:58:08 PM EDT [facility] By submitting this query, we are merely seeking further clarification ofdocumentation to accuratelyreflect all conditions that you are monitoring, evaluating, treating or thatextend the hospitalization orutilize additional resources of care. Please utilize your independent clinicaljudgment whenad dressing the question(s) below.Dear Doctor MLII HILLS,The patient's Clinical In dicators include:Pt admitted with sepsis, aspiration pneumonia, and COPD exacerbat ionTX: ABX, O2 NC and BipapPlease clarify if Acute respiratory failure is due to any of the following:Clarification of Clinical Findings>>Acute respiratory failure due to sepsis, pneumonia, and COPD exacerbation>>Acute respiratory failure due to pneumonia and COPD exacerbation>>Other (please specify)>>Unable to determinePLE ASE DOCUMENT ANY ADDITIONAL DIAGNOSES AND/OR SPECIFICITY IN THE PROGRESSNOTES AND/OR DISCHARGE SUMMARY. Name Value Range Interpretation Code Description Data Harriett rce(s) Supporting Document(s ) ID Date Data Source [id number] 12/16/2018 12:39:03 PM EDT [facility] Name Value Range Interpretation Description Data Sup porting Code Source(s) Document(s ) Glucose 149 MG/DL 65-110 Above high normal [facility] [Mass/volume] Taoist in Blood by Hospital Automated test strip ID Date Data Source [id number] 12/16/2018 10:34:32 AM EDT [facility] Care Management InterventionsPCP Verifie d by CM: Yes(Dr. Mili Hills)Mode of Transport at Discharge: BLSTransition of Care Consult (CM Consult): Discharge PlanningMyChart Signup: NoDischarge Dura ble Medical Equipment: NoPhysical Therapy Consult: NoOccupational Therapy Consult: NoSpeech Therapy Consult: NoCurrent Support Network: Nursing Facility([facility] )Plan discussed with Pt/Family/Caregiver: YesFreedom of Choic e Offered: YesVeteran Resource Information Provided?: RefusedDischarge LocationDis harge Placement: Nursing Home Care([facility] )As patient is non-verbal, social media marketing manager is unable to complete assessment withthe patient. During chart review, it was not ed that during last admission, thepatient's emergency contact was identified to be t he patient's sister, Michell, , not the listed individual, Brook fong, who is a staffmember at [facility]. first calender worker contacted Michell, (home); , and was informed that patient's older sister, Yuliet Jim, , holds the power of research attorney for the patient. As per Michell, although[facility], Yuliet's daughter, Joyce Ovalle, and son in law,Gaston uribe. Sandro Ovalle, ENT at [facility], , are the bestcont acts regarding patient's disposition and medical management. Social workercontact ed patient's niece, Joyce and completed assessment with her. As perTzippy, the maximo izquierdo is a long-term resident [facility]. Prior to admission, patient has been wheelchairbound and requires comple te assistance for all ADLs. first calender worker confirmedwith the niece that the dischar ge plan is for patient to return back to [facility] when stable. first calender worker di scussed code status with the niece, whostates that she does not know and will need to discuss this with her spouseprior to making any commitments. first calender worker encourage d geeta to have thisdiscussion with family members and to provide case management w ith a decision atthe earliest if possible. Niece verbalized understanding and agree ment. Socialworker CC linked referral to [facility] and confirmed [facility] that patient is a long-term resident at [facility].Tentative discharge plan is to discharge patient to [facility] when medicallycleared for discharge. Case man agement to continue to follow and remainsavailable for further assistance. RICA AcevedoW12/16/201810:27 AM Name Value Range Interpretation Code Description Data Harriett rce(s) Supporting Document(s ) ID Date Data Source [id number] 12/16/2018 09:30:55 AM EDT [facility] NOTENAME: Evelio AbrahambeinDOB : 1950MRN: [id number]/Time: 12/16/2018 9:15 AMHISTORY OF PRESENT ILLNE SS:Evelio is a 68 y.o. male who presents from [facility] with medical history ofDysphag ia with recent admission s/p surgical peg placement on 11/17/18, severeintellectual disability, Chronic respiratory failure, hyperparathyroidunspecified, personal h/ o pulmonary embolus, anxiety disorder, kyphosis andschizophrenia.The patient is unable to provide a history due to his mental disability. Thenursing home staf f reporting pt had a cough, fever to 103 F and hypoxia. ChestXR showed suspicion f or a Pneumonia. Pt was given Iv Cefepime, Vancomycin andSolu- medrol. Pt was later found minimally responsive and was sent to the ED. In the ED, chest xr showed some streaky changes at the lung bases. ABG showedpH 7.40/55/56/34/ O2 SAT 90 % on 2 LPM and Lactic Acid was elevated to 5.5. Thepatient was given Iv Zosyn, Solu-Medr ol, nebulizer and IVF.Repeat lactic acid was still elevated at 5.3.The patient was ad mitted with enxounter diagnosis of Sepsis due to unspecifiedorganism, Pnermonia, unspe cified and COPD exacerbation.The patient was seen and examined at bedside he is less lethargic, nonverbbal.He is coughing. 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 No pertinent surgical history.Social HistoryTobacco Use Smoki ng status: Never Smoker Smokeless tobacco: Never UsedSubstance Use Topics Alcohol use: NoHistory reviewed. No pertinent family history.No Known AllergiesPrior to Admis elio medicationsMedication Sig Start Date End Date Taking? Authorizing Providerpantopr azole (PROTONIX) 40 mg granules for oral suspension 40 mg by Per G Tuberoute Kyleigh y (before breakfast). 11/28/18 Yes Mili Hills, DObudesonide (PULMICORT) 0.5 mg /2 mL nbsp 2 mL by Nebulization route two (2) timesa day for 30 days. 11/27/18 12/27/18 Yes Mili Hills, DOmultivitamin (ONE A DAY) tablet Take 1 Tab by mouth daily. Yes Provider,Historicalclorazepate (TRANXENE) 3.75 mg tablet Take by mouth nightly. Yes Provider,Historicalalbuterol-ipratropium (DUO-NEB) 2.5 mg-0.5 mg/3 ml nebu 3 mL by Nebulizationroute every six (6) hours as needed. Yes Provider, HistoricallamoTRIgine (LAMICTAL) 25 mg t ablet Take 50 mg by mouth two (2) times a day.Yes Provider, Historicalcinacalcet ( SENSIPAR) 30 mg tablet Take 60 mg by mouth daily. Yes Provider,Historicalvalproat e (DEPAKENE) 250 mg/5 mL syrup Take 750 mg by mouth two (2) times a day.Yes Provider, HistoricalREVIEW OF SYSTEMS: [x] Unable to obtain ROS due to patient factors.Object britni:VITALS:Visit VitalsBP 104/72 (BP 1 Location: Left arm, BP Patient Position: At rest;Head of bedelevated (Comment degrees))Pulse (!) 105Temp 97.8 F (36.6 C)Resp 20Ht 5' 2" (1.575 m)Wt 58 kg (127 lb 12.8 oz)SpO2 92%BMI 23.37 kg/m PHYSICAL EXAM:General: Alert, cooperative, no distress, appears stated age.Head: Nor mocephalic, without obvious abnormality, atraumatic.Eyes: Conjunctivae clear, a nicteric sclerae. Pupils are equalThroat: Lips, mucosa, and tongue normal. No Thr ushNeck: Supple, symmetrical, no adenopathy, no carotid bruit and no JVD .Back: Symmetric, No CVA tenderness.Lungs: Bilateral air entry .. Decreased breath sounds RUL. No Wheezing orRhonchi. No rales.Chest wall: No Acc essory muscle use.Heart: Regular rate and rhythm, no murmur, or rubAbdomen: Pos itive peg, non-tender. Not distended. Bowel sounds normal. NomassesExtremities: Extr emities normal, atraumatic, No cyanosis. No edema. No clubbingSkin: Warm and dry . No rashes or lesions. Not JaundicedLymph nodes: Cervical, supraclavicular normal. Psych: Not anxious or agitated.Neurologic: EOMs intact. No facial asymmetry. No aph greg or slurred speech.Generalized weakness, wheel chair bound., Alert and Awake, non verbal. .LAB DATA REVIEWED:Recent Results (from the past 24 hour(s))GLUCOSE, POC C ollection Time: 12/15/18 11:16 AMResult Value Ref Range Glucose, bedside 108 65 - 110 MG/DLGLUCOSE, POC Collection Time: 12/15/18 4:09 PMResult Value Ref Range Glucose, b edside 115 (H) 65 - 110 MG/DLGLUCOSE, POC Collection Time: 12/15/18 11:28 PMResult Value Ref Range Glucose, bedside 95 65 - 110 MG/DLRENAL FUNCTION PANEL Collection Patria e: 12/16/18 3:17 AMResult Value Ref Range Sodium 141 136 - 145 mmol/L Potassium 4. 2 3.5 - 5.1 mmol/L Chloride 104 98 - 107 mmol/L CO2 34 (H) 21 - 32 mmol/L Anion g ap 7 (L) 10 - 20 mmol/L Glucose 105 74 - 106 mg/dL BUN 14 7 - 18 mg/dL Creatinine 0.4 0 (L) 0.70 - 1.30 mg/dL GFR est AA >60 >60 ml/min/1.73m2 GFR est non-AA >60 >60 ml/ min/1.73m2 Calcium 8.4 (L) 8.5 - 10.1 mg/dL Phosphorus 2.9 2.5 - 4.9 mg/dL Albumin 2 .1 (L) 3.5 - 4.7 g/dLMAGNESIUM Collection Time: 12/16/18 3:17 AMResult Value Ref Range Magnesium 1.9 1.6 - 2.6 mg/dLCBC WITH AUTOMATED DIFF Collection Time: 12/16/18 3:17 AMResult Value Ref Range WBC 9.4 4.8 - 10.6 K/uL RBC 3.88 (L) 4.70 - 6.00 M/uL HGB 12.6 (L) 14.0 - 18.0 g/dL HCT 40.7 (L) 42.0 - 52.0 % MCV 104.9 (H) 81.0 - 94.0 FL MCH 32.5 27.0 - 35.0 PG MCHC 31.0 30.7 - 37.3 g/dL RDW 16.4 (H) 11.5 - 14.0 % JOCELYN TELET 277 130 - 400 K/uL MPV 9.6 9.2 - 11.8 FL NEUTROPHILS 81 (H) 48 - 72 % BAND KISHA TROPHILS 4 (H) <1 % LYMPHOCYTES 7 (L) 18 - 40 % MONOCYTES 5 2 - 12 % MYELOCYTES 3 (H) 0 % RBC COMMENTS 1+ANISOCYTOSIS RBC COMMENTS 3+MACROCYTOSIS PLATELET ESTIMATE ADEQUAT E DF MANUALGLUCOSE, POC Collection Time: 12/16/18 6:34 AMResult Value Ref Range Glucose, bedside 132 (H) 65 - 110 MG/DLAssessment/Plan:Active Problems: P neumonia (11/08/2018) Sepsis due to undetermined organism (HCC) (12/12/2018) Acute Respiratory Failure with hypercapnia and Hypoxia Metabolic Acidosis - Resolvi ng Sepsis -poa Metabolic Encephalopathy Aspiration Pneumonia Acute COPD exacerba tion Dysphagia s/p surgically place,emt of peg Mentally challenged Seizure disorder Hyperparathyroid PLAN:Risk of deterioration: []Low []Moderate [x] High1. Keep in ECU2. IV fluids3.O2 NC/BIPAP4. Iv Zosyn5. Pulmonary follow up6. ID fo llow up7. CT chest8. Restart officer captain medications via peg Covering for Admitting Physician: Oralia Frankel MD December 16, 2018 9:15 AM Name Value Range Interpretation Code Description Data Harriett rce(s) Supporting Document(s ) ID Date Data Source [id number] 12/16/2018 07:46:56 AM EDT [facility] Progress NotePatient: Evelio Carlin Sex: male DOA: 12/12/2018Date of : 1950 Age: 68 y.o. :[id number]:Reyes Carlin is 68 y.o. male .who presented with lethargy,cough, fever,hypoxia, meta bolic acidosis,= and hypothermia.He has medical history of Dysphagia with recent admission s/p surgical pegplacement on 11/17/18, severe intellectual disability, Chronic respiratoryfailure, hyperparathyroid unspecified, personal h/o pulmonary embo aspen, anxietydisorder, kyphosis and schizophreniaPt was admitted with encoun ter diag of Acute Respiratory failure withhypercapnia and hypoxia, metabolic a cidosis, sepsis poa, Acute COPD exacerbationand dysphagia s/p surgical p lacement of peg,. Also diag of mentally challenged,seizure disorder and hyperpar athyroid.Pt is nonverbal and unable to provide a history. Lactic acid 5,5 --> 5.3 --> 2.1Troponin > 0.02BNP 87 CT chest: deviation of mediastinal structures to t he rt , as seen on priorstudies. 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 Pupils are equalThroat: Lips, mucosa, and tongue normal. No Thr ushNeck: Supple, symmetrical, no adenopathy, no carotid bruit and no JVD .Back: Symmetric, No CVA tenderness.Lungs: Clear to auscultatio n bilaterally. No Wheezing or Rhonchi. No rales.Chest wall: No Accessory mus neo use.Heart: Regular rate and rhythm, no murmur, or rubAbdomen: Soft, non-tende r. Not distended. Bowel sounds normal. No massesExtremities: Extremities normal, a traumatic, No cyanosis. No edema. No clubbingSkin: No rashes or lesions. Not JaundicedLymph nodes: Cervical, supraclavicular normal.Psych: Unable to assessNeurologic: EOMs intact. No facial asymmetry. No aphasia or slurred speech, .generalized weakness, Alert and AwaleIntake and Output:Current Shift: No intake/out put data recorded.Last three shifts: 12/14 700 - 12/15 1899In: 2960 [I.V.:1200]Out : 250 [Urine:250]Lab/Data Reviewed:Recent Days:Recent Labs 12/14/1903WBC 5.5 8.6 8.4HGB 10.7* 10.8* 11.2*HCT 32.2* 32.6* 33.7*PLT 234 205 138Recent Labs 12/15/1902NA -- 141 -- 139 136K -- 3.9 -- 4.2 4.3CL -- 106 -- 102 100CO2 33* 30 34 * 33* 30GLU -- 110* -- 84 134*BUN -- 15 -- 13 11CREA -- 0.26* -- 0.34* 0.4 2*CA -- 8.0* -- 8.5 8.4*MG -- 1.9 -- 2.0 1.9PHOS -- 1.9* -- 2.6 2.4*ALB -- 1.9* -- 2.0* 2.0*Recent Labs 554PH 7.36 7.38PCO 2 56* 54*PO2 75* 70*HCO3 32* 32*Xr Chest Sngl VResult Date: 11/25/2018AP portable film of the chest clinical indication pneumonia Study is compared toprevious examination of November 22, 2018. Study demonstrates a left pleuraleffusion as well as infiltra te at the left base. This was present on previousstudy. There has been interval d evelopment of a small right pleural effusionwith linear streaking at the rig ht base this may represent infiltrate oratelectasis. Heart size difficult to e valuate.IMPRESSION: Infiltrate left base with pleural effusion, right pleural effusion with streaking at right lower lung field which may represent infiltrate oratelect asisXr Chest Sngl VResult Date: 11/22/2018History: PNEUMONIA Technique: P ortable chest x-ray 11/22/2018 8:03 AM Comparison:11/21/2018. FINDINGS: The exam is rotated. There is a small left pleural effusionwith probable infiltrate or atel ectasis. There is improved aeration of the rightlung since the prior. Evaluation of the cardiac silhouette is limited byprojection. The visualized osseous str uctures appear unremarkable.IMPRESSION: There is a small left pleural effusion with pr obable infiltrate oratelectasis. There is improved aeration of the right lung sinc e the prior.Xr Abd (kub)Result Date: 11/22/2018EXAM: XR ABD (KUB) INDICATION: ileus COMPARISON: None. FINDINGS: A supineradiograph of the abdomen shows a normal bowel gas pattern. No soft tissuemasses or pathologic calcification s are identified. The bones and soft tissuesare within normal limits. There i s moderate fecal material overlying the pelvis.There are skin kalpana along the midline.IMPRESSION: No dilated loops of bowel are identified to suggest obstruction.Xr Abd (kub)Result Date: 11/19/2018XR ABD (KUB)-SINGLE VIEW PRIOR: None HISTORY: E valuate for G-tube placementFINDINGS: The examination is limited-the pt is in an R AO/LPO position. A tubeoverlies the abdomen extending from the right lower quadrant to the left upperquadrant and whether this represents a gastric tube cannot be defi nitivelydetermined. The bowel gas pattern is nonspecific. No abnormally dilated loop ofbowel, bowel wall thickening, pneumatosis or free air is identified. No abnormalde nsities or calcifications are identified. There are midline surgical skinstaples i dentified. The visualized osseous structures are unremarkable.IMPRESSION: 1. Tube ov erlying the abdomen terminating in the region of stomach;as described and discussed ab ove on this single oblique view the exact locationof this tube cannot be determine d. 2. Otherwise unremarkable abdomen/KUB.Ct Chest Wo ContResult Date: 12/13/2018Histo ry: Respiratory difficulty. FINDINGS: CT scanning of the chest wasperformed helic ally from the lung apices to the upper abdomen withoutintravenous contrast mate rial. Sagittal and coronal reconstructed images aresubmitted. Scanning was perfor med utilizing dose lowering techniques and iscompared to the prior study of 11/09/19 19. The study is quite limited by patientpositioning. Evaluation of thorac ic vascular structures is limited withoutintravenous contrast material davalos s not reveal evidence of aneurysmal dilatationor definite CT evidence of dis section. Coronary artery calcification is seen.There is minimal calcification of t he aortic arch. There is minimalcalcification of the descending thoracic aorta. There is no definite evidence ofany pathologically enlarged lymph node in the visualized po rtions of themediastinum or axillae. Evaluation of pulmonary parenchymal stru ctures revealssome atelectatic change in the right upper lobe. There is a small left pleuraleffusion as well as left basilar atelectatic change. There is some patchy opacity within the right middle lobe and right lower lobe which could also beinfi ltrative in nature. Limited evaluation of upper abdominal structures isunremarkabl e. There is deviation of mediastinal structures to the right. Thiscould be as result of atelectatic change within the right lung. This has beenseen previously and is unchanged.IMPRESSION: Extremely limited study by patient positioning. De viation ofmediastinal structures to the right as has been seen on prior studies. Leftp leural effusion. Bilateral infiltrates and atelectasis, greater on the rightthan th e left.Xr Chest PortResult Date: 12/13/2018History: Respiratory difficulty . FINDINGS: A frontal portable view of the chestis compared to the prior study from earlier in the same day. EKG leads overliethe chest. The cardiac silhouette is normal in size. The left lung is clear. Theright lung is poorly evaluated due to significant rotation. The possibility ofright basilar infiltrate or atelectati c change cannot be excluded. Mediastinaland hilar structures are poorly evaluated as well.IMPRESSION: Study quite limited due to rotation. Opacity at the right lung base may be infiltrative or atelectatic in nature.Xr Chest PortResult Date: 12/13/19 19History: Fever. Lethargy. FINDINGS: 2 frontal views of the chest are compared tothe prior study of 11/25/2018. EKG leads overlie the chest. The cardiacsilhouette is normal in size. There may be some streaky changes at the lungbases. Evaluation of the lungs and mediastinal structures is quite limited dueto rotation.IMPRESSION: Study quite limited by rotation. Basilar streaks noted.Xr Chest PortResult Date: 11/21/2018 AP portable film of the chest clinical indication pneumonia Study is compared t oprevious examination of November 19, 2018. There has been partial clearing ofstrea ky changes seen at the right base. There has been interval development ofsome hazines s at the left base as well as elevation of the left leaf of thediaphragm. Heart siz e is difficult to evaluate.IMPRESSION: 1. Partial clearing of streaks at right bas e. 2. Haziness at leftbase which may represent infiltrateXr Chest PortResult Date: 11/19/2018History: Respiratory difficulty. FINDINGS: A frontal portable view of the chestis compared to the prior study of 11/07/2016. A large gas-filled s tructure isnoted beneath the left diaphragm, unchanged, likely representing the stoma ch.The cardiac silhouette is normal in size. There is again noted to be shift ofmedia stinal structures to the right. There are some streaky and patchy changesat the ri ght lung base not seen on the prior study and the possibility ofinfiltrative change ca nnot be excluded. A few nonspecific left basilar streaksare noted as well. Promin ence of the right hilum is unchanged and may merely carlos enrique a result of the shift of med iastinal structures.IMPRESSION: New patchy opacity at the right lung base may be in filtrative oratelectatic in nature. Few left basilar streaks are noted as well. Other wisefindings similar.Xr Abd Port 1 VResult Date: 11/21/2018Abdomen 2 views clinical i ndication ileus Study is compared to previousexamination of November 20, 2018. T here has been an interval decrease in boweldistention. Increased stool is note d in the rectal region. Skin clips are againnoted.IMPRESSION: 1. Interval decre ase in bowel distention. 2. Increased stool inrectal regionXr Abd Port 1 VResult Da te: 11/20/2018KUB one view(s) History: Ileus. Comparison: Yesterday. There is diffuse ileusof the small and large bowel which has increased involving the small bowel. Air and fecal material is noted in the rectosigmoid colon. The cecum appears to bein the right hemiabdomen but is otherwise unchanged. There is no evidence ofobstru ction, radiopaque gallstones, or kidney stones. The previously noted tubeoverlyi ng the abdomen is no longer seen.IMPRESSION: Increase of small bowel ileus.Medication s reviewedCurrent Facility-Administered MedicationsMedication Dose Route Frequen cy potassium, sodium phosphates (NEUTRA-PHOS) packet 1 Packet 1 Packet Oral QID acetylcysteine (MUCOMYST) 100 mg/mL (10 %) nebulizer solution 200 mg 2 mLNe bulization BID RT albuterol-ipratropium (DUO-NEB) 2.5 MG-0.5 MG/3 ML 3 mL Nebul ization Q6H RT bacitracin 500 unit/gram packet 1 Packet 1 Packet Topical BID 0 .9% sodium chloride infusion 100 mL/hr IntraVENous CONTINUOUS piperacillin-cbua obactam (ZOSYN) 3.375 g in 0.9% sodium chloride (MBP/ADV) 100mL MBP 3.375 g In traVENous Q8H budesonide (PULMICORT) 500 mcg/2 ml nebulizer suspension 500 mcg N ebulizationBID RT ALPRAZolam (XANAX) tablet 0.5 mg 0.5 mg Per G Tube QHS lamoTRIgi ne (LaMICtal) tablet 50 mg 50 mg Per G Tube BID valproic acid (as sodium salt) (DEP AKENE) 250 mg/5 mL (5 mL) oral solution 750mg 750 mg Per G Tube BID cinacalcet (SENS IPAR) tablet 60 mg 60 mg Oral DAILY pantoprazole (PROTONIX) granules for ora l suspension 40 mg 40 mg Per G TubeACB heparin (porcine) injection 5,000 Units 5,000 Units SubCUTAneous Q12H methylPREDNISolone (PF) (SOLU-MEDROL) in jection 20 mg 20 mg IntraVENous Q12H sodium chloride (NS) flush 5-10 mL 5-10 mL Int raVENous PRNAssessment/Plan:Hospital Problems Date Reviewed: 12/15/2018 Codes Cla ss Noted POA Sepsis due to undetermined organism (HCC) ICD-10-CM: A41.9ICD-9-CM: 038.9 12/12/2018 Unknown Pneumonia ICD-10-CM: J18.9ICD-9-CM: 486 11/08/2018 UnknownAssessment: Acute Respiratory failure with hypercapnia and hypoxia Me tabolic acidosis- Resolved] Sepsis poa Metabolic encephalopathy Aspiration Pn eumonia Acute COPD Exacerbation Dysphagi s/p surgical placed peg Mentally chall enged Seizure Hyperparathyroid -Plan:Iv antibioticsO2 NC/ BIPAP nutrition f/u cu lturesnebulizers iv steroids cont officer captain medications D/W pmo lead and RN sug gest a trial of bolusTF to reduce risk of aspiration.from the continuous [place] Elizondopt2018Time: 8:21 PM Name Value Range Interpretation Code Description Data Harriett rce(s) Supporting Document(s ) ID Date Data Source [id number] 12/16/2018 07:23:07 AM EDT [facility] Bedside and Verbal shift change report g iven to Aaliyah Victor RN (oncomingnurse) by Yolie Groves RN(offgoing nurse). Report g iven with SBAR, Kardex, Intake/Output, MAR and RecentResults. Name Value Range Interpretation Code Description Data [facility] rce(s) Supporting Document(s ) ID Date Data Source [id number] 12/16/2018 06:53:51 AM EDT [facility] Name Value Range Interpretation Description Data Sup porting Code Source(s) Document(s ) Glucose 132 MG/DL 65-110 Above high normal [facility] - Good [Mass/volume] [facility] in Blood by [facility] Automated test strip ID Date Data Source [id number] 12/16/2018 03:58:01 AM EDT [facility] Name Value Range Interpretation Description Data Sup porting Code Source(s) Document(s ) Leukocytes 9.4 K/uL 4.8-10.6 [facility] - [#/volume] in Good Blood by [facility] Automated count Hospital Erythrocytes 3.88 4.70-6.0 Below low normal [facility] - [#/volume] in M/uL 0 Good Blood by [facility] count [facility] Hemoglobin 12.6 14.0-18. Below low normal [facility] - [Mass/volume] in g/dL 0 Good Blood [facility] Hematocrit 40.7 % 42.0-52. Below low normal [facility] - [Volume 0 Good Fraction] of [facility] Blood by Hospital Automated count Erythrocyte mean 104.9 FL 81.0-94. Above high normal [facility] - corpuscular 0 Good volume [Entitic [facility] volume] by Hospital Automated count Erythrocyte mean 32.5 PG 27.0-35. [facility] - corpuscular 0 Good hemoglobin [facility] [Entitic mass] Hospital by Automated count Erythrocyte mean 31.0 30.7-37. [facility] - corpuscular g/dL 3 Good hemoglobin [facility] [Mass/volume] by Automated count Erythrocyte 16.4 % 11.5-14. Above high normal [facility] - distribution 0 Good width [Ratio] by [facility] Platelets 277 K/uL 130-400 [facility] - [#/volume] in Good Blood by [facility] Platelet mean 9.6 FL 9.2-11.8 [facility] - volume [Entitic Good volume] in Blood [facility] by Automated Hospital count Segmented 81 % 48-72 Above high normal [facility] - neutrophils/100 Good leukocytes in [facility] Blood by [facility] count Band form 4 % <1 Above high normal [facility] - neutrophils/100 Good leukocytes in [facility] Blood by [facility] count Lymphocytes/100 7 % 18-40 Below low normal [facility] - leukocytes in Good Blood by Manual [facility] count [facility] Monocytes/100 5 % 2-12 [facility] - leukocytes in Good Blood by Manual [facility] Myelocytes/100 3 % 0 Above high normal [facility] - leukocytes in Good Blood by Manual [facility] 1+ANISOCYTOSIS3+MACROCYTOSIS Platelet adequacy [Presence] in Blood by [facility] Light microscopy Differential cell count method - Blood [facility] ID Date Data Source [id number] 12/16/2018 03:53:39 AM EDT [facility] Name Value Range Interpretation Description Data Sup porting Code Source(s) Document(s ) Magnesium 1.9 mg/dL 1.6-2.6 [facility] [Mass/volume] [facility] in Serum or Hospital Plasma ID Date Data Source [id number] 12/16/2018 03:53:39 AM EDT [facility] Name Value Range Interpretation Description Data Sup porting Code Source(s) Document(s ) Sodium 141 136-145 [facility] - Good [Moles/volume] mmol/L [facility] in Serum or Hospital Plasma Potassium 4.2 3.5-5.1 [facility] - Good [Moles/volume] mmol/L [facility] in Serum or Hospital Plasma Chloride 104 98-107 [facility] [Moles/volume] mmol/L [facility] in Serum or Hospital Plasma Carbon 34 21-32 Above high normal [facility] - Good dioxide, total mmol/L [facility] [Moles/volume] Hospital in Serum or Plasma Anion gap in 7 mmol/L 10-20 Below low normal [facility] - Go od Serum or [facility] Plasma Hospital Glucose 105 74-106 [facility] [Mass/volume] mg/dL [facility] in Serum or Hospital Plasma Urea nitrogen 14 mg/dL 7-18 [facility] [Mass/volume] [facility] in Serum or Hospital Plasma Creatinine 0.40 0.70-1.3 Below low normal [facility] [Mass/volume] mg/dL 0 [facility] in Serum or Hospital Plasma Glomerular >60 [facility] - Good filtration [facility] rate/1.73 sq M Hospital predicted among blacks [Volume Rate/Area] in Serum or Plasma by Creatinine-bas ed formula (MDRD) Glomerular >60 [facility] - Good filtration [facility] rate/1.73 sq M Hospital predicted among non-blacks [Volume Rate/Area] in Serum or Plasma by Creatinine-bas ed formula (MDRD) Calcium 8.4 8.5-10.1 Below low normal [facility] Good [Mass/volume] mg/dL [facility] in Serum or Hospital Plasma Phosphate 2.9 2.5-4.9 [facility] - Good [Mass/volume] mg/dL [facility] in Serum or Hospital Plasma Albumin 2.1 g/dL 3.5-4.7 Below low normal [facility] [Mass/volume] [facility] in Serum or Hospital Plasma by Bromocresol purple (BCP) dye binding method ID Date Data Source [id number] 12/15/2018 11:39:59 PM EDT [facility] Name Value Range Interpretation Description Data Sup porting Code Source(s) Document(s ) Glucose 95 MG/DL 65-110 [facility] [Mass/volume] [facility] in Blood by Hospital Automated test strip ID Date Data Source [id number] 12/15/2018 07:30:01 PM EDT [facility] Bedside and Verbal shift change report carol pham to Yolie Groves, RN (oncoming nurse)by Lisa White RN(offgoing nurse). Repo rt given with SBAR, Kardex, Intake/Output, MAR and RecentResults. Name Value Range Interpretation Code Description Data Harriett rce(s) Supporting Document(s ) ID Date Data Source [id number] 12/15/2018 04:20:51 PM EDT [facility] Name Value Range Interpretation Description Data Sup porting Code Source(s) Document(s ) Glucose 115 MG/DL 65-110 Above high normal [facility] [Mass/volume] [facility] in Blood by Hospital Automated test strip ID Date Data Source [id number] 12/15/2018 01:42:57 PM EDT [facility] ID Progress Note12/15/2018Subjective:Patie nt is non verbal,unable to provide any historyAfebrile .Cultures negative so fa r..Objective:Vitals:Patient Vitals for the past 24 hrs: BP Temp Pulse Resp [id number] 06/03 1103 110/60 - 68 28 97 %12/15/18 0900 111/58 - 66 30 98 %12/15/18 0832 - - - - 94 %12/15/18 0800 115/62 98 F (36.7 C) 69 24 96 %12/15/18 0700 111/62 - 71 22 96 % 12/15/18 0600 111/58 - 65 (!) 33 -12/15/18 0500 100/53 - 74 29 -12/15/18 0400 103/5 8 - 74 27 (!) 87 %12/15/18 0300 (!) 88/49 - 67 26 93 %12/15/18 0200 (!) 88/47 - 67 ( !) 31 92 %12/15/18 0113 - - - - 93 %12/15/18 0100 91/50 - 63 27 94 %12/14/18 2300 (!) 85/50 - 69 29 -12/14/18 2200 102/55 - 71 23 -12/14/18 2100 102/60 - 69 17 91 % 2039 - - - - 94 %12/14/18 2000 102/51 98.1 F (36.7 C) 69 22 92 %12/14/18 1900 106 /55 - 69 18 (!) 85 %12/14/18 1800 112/51 - 64 16 (!) 88 %12/14/18 1700 96/67 - 65 23 1 00 %12/14/18 1600 (!) 109/39 96.9 F (36.1 C) 66 20 -12/14/18 1526 110/57 - 71 21 - 12/14/18 1500 110/57 - 75 24 -12/14/18 1400 97/56 - 65 22 91 %12/14/18 1300 124/65 - 70 20 91 %Tmax: Temp (24hrs), Av.7 F (36.5 C), Min:96.9 F (36.1 C), Max:98 .1 F(36.7 C)Physical Exam:General: Awake non verbal, cooperative, no distressMout h/Throat: Dry oral, mucosaNeck: Supple, symmetrical, trachea midline, no adenopa thyLungs: Bilateral breath sounds with basal crackles..Heart: Regular rate and rhythm, S1, S2 normal, no murmurAbdomen: Soft, non-tender. Bowel sounds normal. N o masses, No organomegaly.+feeding tubeBack: No CVA tenderness.Extremities: Extremi ties normal, atraumatic, no cyanosis or edema.Pulses: 2+ and symmetric all extre mities.Skin: Skin color, texture, turgor normal. No rashes or lesionsCurrent Faci lity-Administered MedicationsMedication Dose Route Frequency potassium, sodium phosp hates (NEUTRA-PHOS) packet 1 Packet 1 Packet Oral QID albuterol-ipratropium (DUO-NEB ) 2.5 MG-0.5 MG/3 ML 3 mL Nebulization Q6H RT bacitracin 500 unit/gram packet 1 Pa cket 1 Packet Topical BID 0.9% sodium chloride infusion 100 mL/hr IntraVENous CONTINUOUS piperacillin-tazobactam (ZOSYN) 3.375 g in 0.9% sodium chloride (MBP/ADV ) 100mL MBP 3.375 g IntraVENous Q8H budesonide (PULMICORT) 500 mcg/2 ml nebu lizer suspension 500 mcg NebulizationBID RT ALPRAZolam (XANAX) tablet 0.5 mg 0.5 mg Per G Tube QHS lamoTRIgine (LaMICtal) tablet 50 mg 50 mg Per G Tube BID valp roic acid (as sodium salt) (DEPAKENE) 250 mg/5 mL (5 mL) oral solution 750mg 750 mg Per G Tube BID cinacalcet (SENSIPAR) tablet 60 mg 60 mg Oral DAILY pantopra zole (PROTONIX) granules for oral suspension 40 mg 40 mg Per G TubeACB heparin (por cine) injection 5,000 Units 5,000 Units SubCUTAneous Q12H acetylcysteine (MUCOM YST) 100 mg/mL (10 %) nebulizer solution 200 mg 2 mLNebulization TID RT methylPREDN ISolone (PF) (SOLU-MEDROL) injection 20 mg 20 mg IntraVENous Q12H sodium chloride (NS) flush 5-10 mL 5-10 mL IntraVENous PRNLabs:Recent Labs 09/02/701178 12/14/1903WBC 5.5 8.6 8.4 11.0*HGB 10.7* 10.8* 11.2* 13.1*PLT 234 205 138 191BUN 15 13 11 12CREA 0.26* 0.34* 0.42* 0.74SGOT -- -- -- 19AP -- -- -- 69TBILI -- -- -- 0.3Cultures:Lab ResultsComponent Value D ate/Time Culture result: NO GROWTH 1 DAY 12/12/2018 08:04 PM Culture result: NO G ROWTH 3 DAYS 12/12/2018 07:40 PM Culture result: NO GROWTH 3 DAYS 12/12/2018 07:4 0 PMRadiology:No results found.Assessment: Sepsis. Aspiration pneumonia. Acute re spiratory failure with hypoxia and hypercapnia. Acute COPD exacerbation. Dysphagia. Atelectasis. Plan:1. Continue IV zosyn.2. Follow cultures.MARICEL Beauchampeptember 201812:26 PM Name Value Range Interpretation Code Description Data Harriett rce(s) Supporting Document(s ) ID Date Data Source [id number] 12/15/2018 11:49:09 AM EDT [facility] NUTRITIONBrief Note- Bolus FeedingsConsu lted per MD for bolus feedings.Currently tolerating Pulmocare @ 30 ml/hr, goal ra te 50 ml/hrIf bolus feedings desired, recommend Pulmocare, 5 cans daily (8 am, 12 pm, 4 pm,8 pm, 12 am), to provide 1775 kcal, 74 g PRO, 125 g carb, 111 g fat, 9 30 ml freewater, with 85 ml free water flush before and after each bolusWill continue to monitor tolerance to Rita Baig RD Name Value Range Interpretation Code Description Data Harriett rce(s) Supporting Document(s ) ID Date Data Source [id number] 12/15/2018 11:27:14 AM [facility] Name Value Range Interpretation Description Data Sup porting Code Source(s) Document(s ) Glucose 108 MG/DL 65-110 [facility] [Mass/volume] [facility] in Blood by Hospital Automated test strip ID Date Data Source [id number] 12/15/2018 11:12:56 AM EDT [facility] Received from CCU via bed accompany by Transport. He is alert and awake. Heis non verbal and does not not follow any comma nd Telemetry monitors SB/SR. [id number]. Vitals stable, Peg Tube feeding tolerat ed well. No residual. Pt madecomfortable, continue to monitor. Name Value Range Interpretation Code Description Data Harriett rce(s) Supporting Document(s ) ID Date Data Source [id number] 12/15/2018 11:05:19 AM EDT [facility] TRANSFER - IN REPORT:Verbal report recei nathaly from Saundra Shepherd RN(name) on Evelio Carlin beingreceived from CCU(unit) for routine progression of careReport consisted of patient's Situation, Backgr ound, Assessment andRecommendations(SBAR).Information fro m the following report(s) SBAR, Kardex, Intake/Output, MAR,Recent Results and Me d Rec Status was reviewed with the receiving nurse.Opportunity for questions and clar ification was provided.Assessment completed upon patient's arrival to unit and care assumed. Name Value Range Interpretation Code Description Data Harriett rce(s) Supporting Document(s ) ID Date Data Source [id number] 12/15/2018 10:20:54 AM EDT [facility] Critical Care Progress N [facility]Krystian Monae MD., F.C.C.P.Stella Hamilton MD., F.C.C.P. [address] [place] [address] [place] [address] Name: Evelio JohnsoninDOB: 1950MRN: [id number]: 12/15/2018Subjective:Mr. Carlin is a 68 y.o. year old male who is being see n for ACUTE RESPIRATORYSILURE.Evelio Carlin is a 68 y.o. male who has been seen for respfailure.pneumonia,recently discharged..Patient with MR,aspiration p neumonia,dysphagia,s/p peg placement,COPD,pulmonaryembolism,schizop hrenia was transferred from the long-term for zytel700.3,shortness of breath and t achycardia.Patient is non verbal,unable toprovide history.History obtained from chart review.He was started on IVcefepime,solumedrol and given a dose o f IV vancomycin as per records from [place].Hewas afebrile on arrival to the ER with eleva mikel lactic acid of 5.3with respiratory distress.course reviewed. He Feels Bet ter Today CAT SCAN CHEST SHOWS R U L PNEUMONIA , L L L PNEUMONIA LARGE LEFT HIATUS HERNIA ABG SHOW PH 7.36, PCO2 =56 , PO2 =75 , HCO2 = 32 Ns spo2 9 7 % acut Uncompensated Respiratory acidosis , ch Respiratory , acidosis , metabolic alkalosis And Norm oxemia , with increased A-a gradient . 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) Pneumonia Psychiatric disorder Pulmona ry emboli (HCC) Schizophrenia (HCC)Allergy:No Known AllergiesVital Sig ns:Patient Vitals for the past 24 hrs: BP Temp Pulse Resp [id number]/15/18 0900 111/58 - 66 30 98 %12/15/18 0832 - - - - 94 %12/15/18 0800 115/62 98 F (36.7 C) 69 24 96 %12/15/18 0700 111/62 - 71 22 96 %12/15/18 0600 111/58 - 65 (!) 33 -12/15 0500 100/53 - 74 29 -12/15/18 0400 103/58 - 74 27 (!) 87 %12/15/18 0300 (!) 88/49 - 67 26 93 %12/15/18 0200 (!) 88/47 - 67 (!) 31 92 %12/15/18 0113 - - - - 93 % 9 0100 91/50 - 63 27 94 %12/14/18 2300 (!) 85/50 - 69 29 -12/14/18 2200 102/55 - 71 23 -12/14/18 2100 102/60 - 69 17 91 %12/14/189 - - - - 94 %12/14/18 2000 102/51 98.1 F (36.7 C) 69 22 92 %12/14/18 1900 106/55 - 69 18 (!) 85 %12/14/18 180 0 112/51 - 64 16 (!) 88 %12/14/18 1700 96/67 - 65 23 100 %12/14/18 1600 (!) 109/39 96 .9 F (36.1 C) 66 20 -12/14/18 1526 110/57 - 71 21 -12/14/18 1500 110/57 - 75 24 -05/03 1400 97/56 - 65 22 91 %12/14/18 1300 124/65 - 70 20 91 %12/14/18 1200 119/61 97.1 F (36.2 C) 62 15 98 %12/14/18 1100 109/56 - 63 24 92 %Pulse OX:SpO2 Reading s from Last 6 Encounters:12/15/18 98%11/27/18 91%09/26/15 96%@LASTSAO2(6)@Intake/Outpu t:Last shift: 12/15 700 - 12/15 190In: 150Out: -Last 3 shifts: 12/13 1900 - 0700In: 3630 [I.V.:2600]Out: 520 [Urine:520]Intake/Output Summary (Last 2 4 hours) at 12/15/2018 1010Last data filed at 12/15/2018 0800Gross per 24 hourIntake 164 0 mlOutput 250 mlNet 1390 mlHemodynamics:.@MAP.@CVPVentilator Sett ings:Mode Rate Tidal Volume Pressure FiO2 PEEPPeak airway pressure:Minute ventilat ion:ARDS network Guidelines: Lung protective strategy and Pl pressure goals N/Aless than or equal to 30Physical Exam:MILDLY LETHARGIC General: , cooperative , no distress, appears stated age. Head: Normocephalic, without obvious a bnormality, atraumatic. Eyes: Conjunctivae/corneas clear. PERRL, EOMs intact. Nose: Nares normal. No drainage or sinus tenderness Thr oat: Lips, mucosa, and tongue normal Neck: Supple, symmetrical, trachea midline, no adenopathy,thyroid: no enlargement/tenderness/nodules, no carot id bruit and no JVD. Lungs: WHEEZING ARE LESS , RALES DECREASED R L L AND L L L toauscultation bilaterally. Chest Wall: No tenderness or deformity . Heart: Regular rate and rhythm, S1, S2 normal, no murmur, click, rub or NO gallop. Abdomen: Soft, non-tender. Bowel sounds normal. No mass es, No organomegaly. Extremities: Extremities normal, atraumatic, no cyano sis or edema. Pulses: 4+ bilaterally Skin: Skin col or, texture, turgor normal. No rashes or lesions. Neurologic: CNII-XII intact. No focal motor or sensory deficit.DATA:Current Facility-Administer ed MedicationsMedication Dose Route Frequency albuterol-ipratropium (DUO-NEB) 2.5 MG- 0.5 MG/3 ML 3 mL Nebulization Q6H RT bacitracin 500 unit/gram packet 1 Packet 1 Packet Topical BID 0.9% sodium chloride infusion 100 mL/hr IntraVENous CONTINUO US piperacillin-tazobactam (ZOSYN) 3.375 g in 0.9% sodium chloride (MBP/ADV) 100mL MBP 3.375 g IntraVENous Q8H budesonide (PULMICORT) 500 mcg/2 ml nebulizer suspe nsion 500 mcg NebulizationBID RT ALPRAZolam (XANAX) tablet 0.5 mg 0.5 mg Per G Tube QHS lamoTRIgine (LaMICtal) tablet 50 mg 50 mg Per G Tube BID valproic acid (as sod ium salt) (DEPAKENE) 250 mg/5 mL (5 mL) oral solution 750mg 750 mg Per G Tube BID c inacalcet (SENSIPAR) tablet 60 mg 60 mg Oral DAILY pantoprazole (PROTONIX) granules for oral suspension 40 mg 40 mg Per G TubeACB heparin (porcine) injection 5,0 00 Units 5,000 Units SubCUTAneous Q12H acetylcysteine (MUCOMYST) 100 mg/mL (10 %) nebulizer solution 200 mg 2 mLNebulization TID RT methylPREDNISolon e (PF) (SOLU-MEDROL) injection 20 mg 20 mg IntraVENous Q12H sodium chloride (NS) f lush 5-10 mL 5-10 mL IntraVENous PRNTelemetry: [x]Sinus []A-flutter []Pac ed []A-fib []Multiple PVC'sLabs:Recent Results (from the past 24 hour(s))GLUCOS E, POC Collection Time: 12/14/18 11:59 AMResult Value Ref Range Glucose, bedsid e 100 65 - 110 MG/DLRENAL FUNCTION PANEL Collection Time: 12/15/18 3:49 AMResult Value Ref Range Sodium 141 136 - 145 mmol/L Potassium 3.9 3.5 - 5.1 mmol/L Chloride 106 98 - 107 mmol/L CO2 30 21 - 32 mmol/L Anion gap 8 (L) 10 - 20 mmol/L Glucose 1 10 (H) 74 - 106 mg/dL BUN 15 7 - 18 mg/dL Creatinine 0.26 (L) 0.70 - 1.30 mg/dL GF R est AA >60 >60 ml/min/1.73m2 GFR est non-AA >60 >60 ml/min/1.73m2 Calcium 8.0 (L) 8. 5 - 10.1 mg/dL Phosphorus 1.9 (L) 2.5 - 4.9 mg/dL Albumin 1.9 (L) 3.5 - 4.7 g/dLMAGN ESIUM Collection Time: 12/15/18 3:49 AMResult Value Ref Range Magnesium 1.9 1 .6 - 2.6 mg/dLCBC WITH AUTOMATED DIFF Collection Time: 12/15/18 3:49 AMResult Value Ref Range WBC 5.5 4.8 - 10.6 K/uL RBC 3.25 (L) 4.70 - 6.00 M/uL HGB 10.7 (L) 1 4.0 - 18.0 g/dL HCT 32.2 (L) 42.0 - 52.0 % MCV 99.1 (H) 81.0 - 94.0 FL MCH 32.9 27. 0 - 35.0 PG MCHC 33.2 30.7 - 37.3 g/dL RDW 16.2 (H) 11.5 - 14.0 % PLATELET 234 130 - 400 K/uL MPV 9.5 9.2 - 11.8 FL NEUTROPHILS 79 (H) 48.0 - 72.0 % LYMPHOCYTES 15 (L) 18.0 - 40.0 % MONOCYTES 6 2.0 - 12.0 % EOSINOPHILS 0 0.0 - 7.0 % BASOPHILS 0 0. 0 - 3.0 % ABS. NEUTROPHILS 4.3 1.5 - 6.6 K/UL ABS. LYMPHOCYTES 0.8 (L) 1.5 - 3.5 K/UL ABS. MONOCYTES 0.3 0.0 - 1.0 K/UL ABS. EOSINOPHILS 0.0 0.0 - 0.7 K/UL ABS. BASO PHILS 0.0 0.0 - 0.1 K/UL DF AUTOMATED IMMATURE GRANULOCYTES 1 0.0 - 2.0 %BLOOD GAS, ARTERIAL Collection Time: 12/15/18 6:22 AMResult Value Ref Range pH 7.36 7. 35 - 7.45 PCO2 56 (H) 32 - 48 mmHg PO2 75 (L) 83 - 108 mmHg CO2, TOTAL 33 (H) 19 - 24 mmol/L BICARBONATE 32 (H) 21 - 28 mmol/L O2 SAT 97 94 - 98 % BASE EXCESS 4.6 (H) 0 - 3 mmol/L SITE RIGHT BRACHIAL DEVICE NASAL O2 O2 FLOW 3 L/min Performed by [id number]:[facility] Labs 12/14/1904PH 7.36 7.38 7.40PCO2 56* 54 * 55*PO2 75* 70* 56*HCO3 32* 32* 34*Recent Glucose Results:Lab ResultsComponent Seema ue Date/Time GLU 110 (H) 12/15/2018 03:49 AM GLUCPOC 100 12/14/2018 11:59 AMCULTURES: All Micro Results Procedure Component Value Units Date/Time CULTURE, BLOOD [[id number]] Collected: 12/12/181939 Order Status: Completed Specimen: Blood Updated: 06/03 Special Requests: NO SPECIAL REQUESTS Culture result: NO GROWTH 3 DA YS CULTURE, BLOOD [[id number]] Collected: 12/12/181939 Order Status: Completed S pecimen: Blood Updated: 12/15/18 0641 Special Requests: NO SPECIAL REQUESTS C ulture result: NO GROWTH 3 DAYS CULTURE, URINE [[id number]] Collected: 12/12/18 2 004 Order Status: Completed Specimen: Urine Updated: 12/14/18 0914 Special Request s: NO SPECIAL REQUESTS Culture result: NO GROWTH 1 DAY CULTURE, URINE [[id number]] Order Status: Sent Specimen: Cath UrineXR Results (most recent):Results from Hospi krystian Encounter encounter on 12/12/18XR CHEST PORT Narrative History:Respiratory diffi culty.FINDINGS:A frontal portable view of the chest is compared to the prior study fro m earlierin the same day.EKG leads overlie the chest.The cardiac silhouette is norm al in size. The left lung is clear. The right lungis poorly evaluated due to significa nt rotation. The possibility of rightbasilar infiltrate or atelectatic change cannot be excluded. Mediastinal andhilar structures are poorly evaluated as well. Impression IMPRESSION:Study quite limited due to rotation. Opacity at the right lung base may beinfiltrative or atelectatic in nature.CT Results (most recent):Results from Hospital Encounter encounter on 12/12/18CT CHEST WO CONT Narrative Histo ry:Respiratory difficulty.FINDINGS:CT scanning of the chest was performed jamaal lacey from the lung apices to theupper abdomen without intravenous contrast mat erial. Sagittal and coronalreconstructed images are submitted. Scanning was perfo rmed utilizing doselowering techniques and is compared to the prior study of 11/08/2018 .The study is quite limited by patient positioning.Evaluation of thoracic vascu lar structures is limited without intravenouscontrast material does not re veal evidence of aneurysmal dilatation or definiteCT evidence of dissection. Coron connor artery calcification is seen. There isminimal calcification of the aortic ar ch. There is minimal calcification of thedescending thoracic aorta.There is no definite evidence of any pathologically enlarged lymph node in thevisualized por tions of the mediastinum or axillae.Evaluation of pulmonary parenchy mal structures reveals some atelectatic changein the right upper lobe. There is a small left pleural effusion as well as leftbasilar atelectatic change. There is some patchy opacity within the right middlelobe and right lower lobe which co uld also be infiltrative in nature.Limited evaluation of upper abdominal structures is unremarkable.There is deviation of mediastinal structures to the right. Thi s could be asresult of atelectatic change within the right lung. This has been see npreviously and is unchanged. Impression IMPRESSION:Extremely limited study by pa tient positioning.Deviation of mediastinal structures to the right as has been seen on priorstudies.Left pleural effusion.Bilateral infiltrates and atele ctasis, greater on the right than the left.Images:[email or web address] HELP TEXTThis SmartLink requires a parameter for processing. Parameters are variableswhic h can be added to the original SmartLink name. This allows you to requestspecific information by giving the SmartLink precise direction.The BSHSILASTIMGCAT SmartLink accepts (as a parameter) an external procedure IDor an anatomical region. Typ ically, this external ID would be the CPT code.You can also request the number of procedures to be displayed by this SmartLink.To indicate the number, type t he procedure ID or anatomical regions followed bya colon and then the number o f procedures. To display all occurences for thatparticular procedure ID/anatomical r egions, type an asterisk in place of thenumber. To obtain only the last occur ence, type the procedure ID/anatomicalregions without the colon, number, or asterisk.T his SmartLink can display other procedures in the same procedure category if aparamete r is set.The SmartLink will display the last x cases of the procedure or anatomicalre gions you entered.Example: .BSHSILASTIMGCAT[[id number] example wo uld display results for the last three orders with an externalprocedure ID of [id number].T he patient is: [] acutely ill Risk of deterioration: [x] moderate [x] critical ly ill [] highActive Problems: Pneumonia (11/08/2018) Sepsis due to undetermined organism (HCC) (12/12/2018)IMPRESSION: Sepsis. Aspiration pneumonia.R U L , L L L Acute HYPERCAPNIC AND HYPOXIC RESPIRATORY FAILURE Acute COPD exacerba tion. Dysphagia. Atelectasis. LLL HIATUS HERNIA HYPOPHOSPHATEMIA =1.9 HYPOALBUMINEMIA = 1.9 Plan: 1. Continue IV zosyn.DUO NEB QID BIPAP FOR SUPPORT MUCOMYST TO LOOSEN SECTERTIONDS I V SOLUMEDROL MAY TRANSFER TO FLOORNEUTRA PHOS VIA P EG PROSTAT VIS PEG TO INCREASE ALBUMINMy assessment, plan of c are, findings, medications, side effects etc werediscussed with:[x]nursing []PT/OT[x] respiratory therapy []DrGualberto[]family []Critical Care Provided 50 minutes non proced ure based.Krystian Monae MD F.C.C.P. Name Value Range Interpretation Code Description Data Harriett rce(s) Supporting Document(s ) ID Date Data Source [id number] 12/15/2018 09:37:13 AM EDT [facility] TRANSFER - OUT REPORT:Verbal report give n to Rosana RN(name) on Evelio Carlin being transferredto 3N(unit) for routine progression of careReport consisted of patient's Situation, Background, Assessm ent andRecommendations(SBAR).Information from the following report(s) SBAR, Kardex, Re cent Results andCardiac Rhythm RSR was reviewed with the receiving nurse.Lines: Peripheral IV 12/12/18 Left Antecubital (Active)Site Assessment Clean, dry, & in tact 12/15/2018 8:00 AMPhlebitis Assessment 0 12/15/2018 8:00 AMInfiltration Assessment 0 12/15/2018 8:00 AMDressing Status Clean, dry, & intact 12/15/2018 8:00 AMDressing Type Transparent 12/15/2018 8:00 AMHub Color/Line Status [place];Patent 12/15/2018 8:00 AMAction Taken Open ports on tubing capped 12/15/2018 8:00 AMAlcohol Cap Used Yes 12/15/2018 8:00 AMPeripheral IV 12/14/18 Left Antecubital (Active)Site Assessment Clean, dry, & intact 12/15/2018 8:00 AMPhlebitis Assessment 0 12/15/2018 8:00 AMInfiltration Assessment 0 12/15/2018 8:00 AMDressing Status Clean, dry, & intact 8:00 AMDressing Type Transparent 12/15/2018 8:00 AMHub Color/Line Status B lue 12/15/2018 8:00 AMAlcohol Cap Used Yes 12/15/2018 8:00 AMOpportunity for questio ns and clarification was provided.Patient transported with: O2 @ 3 liters Name Value Range Interpretation Code Description Data [facility] rce(s) Supporting Document(s ) ID Date Data Source [id number] 12/15/2018 09:35:55 AM EDT [facility] Dr. Monae to see patient, aware of montague sfer to 3N, patient remains on 3LNC. Name Value Range Interpretation Code Description Data [facility] rce(s) Supporting Document(s ) ID Date Data Source [id number] 12/15/2018 09:11:24 AM EDT [facility] Patient resting on side, non-verbal, mov ing upper extremities well, contractedlower extremities. Does not follow commands. T o be transferred to 3N. Name Value Range Interpretation Code Description Data [facility] rce(s) Supporting Document(s ) ID Date Data Source [id number] 12/15/2018 07:31:58 AM EDT [facility] Bedside and Verbal shift change report g ellynen to Ramila Strange, RN (oncoming nurse)by Chula Daniel RN (offgoing nurs e). Report included the followinginformation SBAR, Kardex, ED Summary, MAR and Recent Results. Name Value Range Interpretation Code Description Data [facility] Supporting Document(s ) ID Date Data Source [id number] 12/15/2018 06:23:40 AM EDT [facility] Name Value Range Interpretation Description Data Sup porting Code Source(s) Document(s ) pH of Arterial 7.36 7.35-7.4 [facility] - Good blood 5 [facility] Carbon dioxide 56 mmHg 32-48 Above high normal [facility] - Good [Partial [facility] pressure] in Hospital Arterial blood Oxygen 75 mmHg 83-108 Below low normal [facility] - Good [Partial [facility] pressure] in Hospital Arterial blood Carbon 33 19-24 Above high normal [facility] - Good dioxide, total mmol/L [facility] [Moles/volume] Hospital in Arterial blood Bicarbonate 32 21-28 Above high normal [facility] - Go od [Moles/volume] mmol/L [facility] in Arterial Hospital blood Oxygen 97 % 94-98 [facility] - Good saturation in [facility] Base excess in 4.6 0-3 Above high normal [facility] - Good Arterial blood mmol/L [facility] by calculation Hospital Body site [facility] - [facility] NASAL O23 Service comment 21013 [facility] - [facility] ID Date Data Source [id number] 12/15/2018 06:55:06 AM EDT [facility] - [facility] Name Value Range Interpretation Description Data Sup porting Code Source(s) Document(s ) Leukocytes 5.5 K/uL 4.8-10.6 [facility] - [#/volume] in Good Blood by [facility] Automated count Hospital Erythrocytes 3.25 4.70-6.0 Below low normal [facility] - [#/volume] in M/uL 0 Good Blood by [facility] Automated count Hospital Hemoglobin 10.7 14.0-18. Below low normal [facility] - [Mass/volume] in g/dL 0 Good Blood [facility] Hematocrit 32.2 % 42.0-52. Below low normal [facility] - [Volume 0 Good Fraction] of [facility] Blood by Hospital Automated count Erythrocyte mean 99.1 FL 81.0-94. Above high normal [facility] - corpuscular 0 Good volume [Entitic Taoist volume] by Hospital Automated count Erythrocyte mean 32.9 PG 27.0-35. [facility] - corpuscular 0 Good hemoglobin [facility] [Entitic mass] Hospital by Automated count Erythrocyte mean 33.2 30.7-37. [facility] - corpuscular g/dL 3 Good hemoglobin [facility] concentration Hospital [Mass/volume] by Automated count Erythrocyte 16.2 % 11.5-14. Above high normal [facility] - distribution 0 Good width [Ratio] by [facility] Automated count Hospital Platelets 234 K/uL 130-400 [facility] - [#/volume] in Good Blood by [facility] Automated count Hospital Platelet mean 9.5 FL 9.2-11.8 [facility] - volume [Entitic Good volume] in Blood [facility] by Automated Hospital count Segmented 79 % 48.0-72. Above high normal [facility] - neutrophils/100 0 Good leukocytes in Taoist Blood [facility] Lymphocytes/100 15 % 18.0-40. Below low normal [facility] - leukocytes in 0 [facility] Monocytes/100 6 % 2.0-12.0 [facility] - leukocytes in [facility] Eosinophils/100 0 % 0.0-7.0 [facility] - leukocytes in [facility] Basophils/100 0 % 0.0-3.0 [facility] - leukocytes in [facility] Segmented 4.3 K/UL 1.5-6.6 [facility] - neutrophils Good [#/volume] in [facility] Lymphocytes 0.8 K/UL 1.5-3.5 Below low normal [facility] - [#/volume] in [facility] Monocytes 0.3 K/UL 0.0-1.0 [facility] - [#/volume] in [facility] Eosinophils 0.0 K/UL 0.0-0.7 [facility] - [#/volume] in [facility] Basophils 0.0 K/UL 0.0-0.1 [facility] - [#/volume] in [facility] Differential [facility] - cell count [facility] Immature 1 % 0.0-2.0 [facility] - granulocytes/100 [facility] leukocytes in [facility] Hospital Automated count ID Date Data Source [id number] 12/15/2018 05:26:40 AM EDT [facility] Name Value Range Interpretation Description Data Sup porting Code Source(s) Document(s ) Sodium 141 136-145 [facility] - Good [Moles/volume] mmol/L [facility] in Serum or Hospital Plasma Potassium 3.9 3.5-5.1 [facility] - Good [Moles/volume] mmol/L [facility] in Serum or Hospital Plasma Chloride 106 98-107 [facility] - Good [Moles/volume] mmol/L [facility] in Serum or Hospital Plasma Carbon 30 21-32 [facility] - Good dioxide, total mmol/L [facility] [Moles/volume] Hospital in Serum or Plasma Anion gap in 8 mmol/L 10-20 Below low normal [facility] - Go od Serum or [facility] Hospital Glucose 110 74-106 Above high normal [facility] - Good [Mass/volume] mg/dL [facility] in Serum or Hospital Plasma Urea nitrogen 15 mg/dL 7-18 [facility] - Good [Mass/volume] Taoist in Serum or Hospital Plasma Creatinine 0.26 0.70-1.3 Below low normal [facility] - Good [Mass/volume] mg/dL 0 [facility] in Serum or Hospital Plasma Glomerular >60 [facility] - Good filtration Taoist rate/1.73 sq M Hospital predicted among blacks [Volume Rate/Area] in Serum or Plasma by Creatinine-bas ed formula (MDRD) Glomerular >60 [facility] - Good filtration Taoist rate/1.73 sq M Hospital predicted among non-blacks [Volume Rate/Area] in Serum or Plasma by Creatinine-bas ed formula (MDRD) Calcium 8.0 8.5-10.1 Below low normal [facility] - Good [Mass/volume] mg/dL [facility] in Serum or Hospital Plasma Phosphate 1.9 2.5-4.9 Below low normal [facility] - Good [Mass/volume] mg/dL [facility] in Serum or Hospital Plasma Albumin 1.9 g/dL 3.5-4.7 Below low normal [facility] - Good [Mass/volume] Taoist in Serum or Hospital Plasma by Bromocresol purple (BCP) dye binding method ID Date Data Source [id number] 12/15/2018 05:26:40 AM EDT [facility] Name Value Range Interpretation Description Data Sup porting Code Source(s) Document(s ) Magnesium 1.9 mg/dL 1.6-2.6 [facility] - Good [Mass/volume] [facility] in Serum or Hospital Plasma ID Date Data Source [id number] 12/15/2018 12:29:58 AM EDT [facility] Progress NotePatient: Evelio Carlin Sex: male DOA: 12/12/2018Date of : 1950 Age: 68 y.o. :[id number]:Reyes Carlin is 68 y.o. male who presented with lethargy,cough, fever,hypoxia, meta bolic acidosis,= and Hypothermia.He has medical history of Dysphagia with recent admission s/p surgical pegplacement on 11/17/18, severe intellectual disability, Chronic respiratoryfailure, hyperparathyroid unspecified, personal h/o pulmonary embo aspen, anxietydisorder, kyphosis and schizophreniaPt was admitted with encoun ter diag of Acute Respiratory failure withhypercapnia and hypoxia, metabolic a cidosis, sepsis poa, Acute COPD exacerbationand dysphagia s/p surgical p lacement of peg,. Also diag of mentally challenged,seizure disorder and hyperpar athyroid.Pt is nonverbal and unable to provide a history.Lactic acid 5,5 --> 5 .3 --> 2.1Troponin > 0.02BNP 87 CT chest: deviation of mediastinal structures to t he rt , as seen on priorstudies. 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 Pupils are equalNeck: Supple, symmetrical, no adenopathy, no carotid bruit and no JVD.Lungs: Clear to auscultation bilaterally. No Wheezing o r Rhonchi. No rales.Chest wall: No Accessory muscle use.Heart: Regular ra te and rhythm, no murmur, or rub.Abdomen: + Peg, non-tender. Not distended. Macrina l sounds normal. No massesExtremities: Extremities normal, atraumatic, No cyano sis. No edema. No clubbingSkin: Warm and dry. No rashes or lesions. Not Jaundice dLymph nodes: Cervical, supraclavicular normal.Psych: Unable to assessNeurologi c: EOMs intact. No facial asymmetry. Nonverbal,.generalized weakness,wc bound Alert and AwakeIntake and Output:Current Shift: No intake/output data recorded.L ast three shifts: 12/13 700 - 12/14 1899In: 5360 [I.V.:4200]Out: 670 [Urine:670]Lab/ Data Reviewed:Recent Days:Recent Labs 12/14/1903WB C 8.6 8.4 11.0*HGB 10.8* 11.2* 13.1*HCT 32.6* 33.7* 38.6*PLT 205 138 191Recent Labs 0 12/15/1903NA -- 139 136 -- 132*K -- 4.2 4.3 -- 4.2CL -- 102 100 -- 92*CO2 34* 33* 30 < > 34*GLU -- 8 4 134* -- 155*BUN -- 13 11 -- 12CREA -- 0.34* 0.42* -- 0.74CA -- 8.5 8.4 * -- 9.4MG -- 2.0 1.9 -- --PHOS -- 2.6 2.4* -- --ALB -- 2.0* 2.0* -- 2.0*TBILI -- -- -- -- 0.3SGOT -- -- -- -- 19ALT -- -- -- -- 13INR -- -- -- -- 1.1 < > = values in this interval not displayed.Recent Labs 12/13/1919PH 7.38 7.40PCO2 54* 55*PO2 70* 56*HCO3 32* 34*Xr Chest S ngl VResult Date: 11/25/2018AP portable film of the chest clinical indication pneumon ia Study is compared toprevious examination of November 22, 2018. Study demonstrates a left pleuraleffusion as well as infiltrate at the left base. This was present on pr eviousstudy. There has been interval development of a small right pleural eff usionwith linear streaking at the right base this may represent infiltrate oratelecta sis. Heart size difficult to evaluate.IMPRESSION: Infiltrate left bas e with pleural effusion, right pleural effusionwith streaking at right lower elham ng field which may represent infiltrate oratelectasisXr Chest Sngl VResult Date: 11/22/2018History: PNEUMONIA Technique: Portable chest x-ray 11/22/2018 8:03 AM C omparison:11/21/2018. FINDINGS: The exam is rotated. There is a small left pleural e ffusionwith probable infiltrate or atelectasis. There is improved aeration of the rightlung since the prior. Evaluation of the cardiac silhouette is limited byp rojection. The visualized osseous structures appear unremarkable.IMPRESSION: There is a small left pleural effusion with probable infiltrate oratelectasis. There is impro nathaly aeration of the right lung since the prior.Xr Abd (kub)Result Date: 11/22/2018 EXAM: XR ABD (KUB) INDICATION: ileus COMPARISON: None. FINDINGS: A supineradi ograph of the abdomen shows a normal bowel gas pattern. No soft tissuemasses or pat hologic calcifications are identified. The bones and soft tissuesare within normal limits. There is moderate fecal material overlying the pelvis.There are skin stap les along the midline.IMPRESSION: No dilated loops of bowel are identified to suggest obstruction.Xr Abd (kub)Result Date: 11/19/2018XR ABD (KUB)-SINGLE VIEW PRIOR: None HISTORY: Evaluate for G-tube placementFINDINGS: The examination is li mited-the pt is in an AKHTAR/LPO position. A tubeoverlies the abdomen extending from the right lower quadrant to the left upperquadrant and whether this represent s a gastric tube cannot be definitivelydetermined. The bowel gas pa ttern is nonspecific. No abnormally dilated loop ofbowel, bowel wall thickening, pne umatosis or free air is identified. No abnormaldensities or calcifications are identified. There are midline surgical skinstaples identified. The visualized o sseous structures are unremarkable.IMPRESSION: 1. Tube overly ing the abdomen terminating in the region of stomach;as described and discussed above on this single oblique view the exact locationof this tube cannot be determine d. 2. Otherwise unremarkable abdomen/KUB.Ct Chest Wo ContResult Date: 12/13/2018Histo ry: Respiratory difficulty. FINDINGS: CT scanning of the chest wasperformed helic ally from the lung apices to the upper abdomen withoutintravenous contrast mate rial. Sagittal and coronal reconstructed images aresubmitted. Scanning was perfor med utilizing dose lowering techniques and iscompared to the prior study of 11/09/19 19. The study is quite limited by patientpositioning. Evaluation of thorac ic vascular structures is limited withoutintravenous contrast material davalos s not reveal evidence of aneurysmal dilatationor definite CT evidence of dis section. Coronary artery calcification is seen.There is minimal calcification of t he aortic arch. There is minimalcalcification of the descending thoracic aorta. There is no definite evidence ofany pathologically enlarged lymph node in the visualized po rtions of themediastinum or axillae. Evaluation of pulmonary parenchymal stru ctures revealssome atelectatic change in the right upper lobe. There is a small left pleuraleffusion as well as left basilar atelectatic change. There is some patchy opacity within the right middle lobe and right lower lobe which could also beinfi ltrative in nature. Limited evaluation of upper abdominal structures isunremarkabl e. There is deviation of mediastinal structures to the right. Thiscould be as result of atelectatic change within the right lung. This has beenseen previously and is unchanged.IMPRESSION: Extremely limited study by patient positioning. De viation ofmediastinal structures to the right as has been seen on prior studies. Leftp leural effusion. Bilateral infiltrates and atelectasis, greater on the rightthan th e left.Xr Chest PortResult Date: 12/13/2018History: Respiratory difficulty . FINDINGS: A frontal portable view of the chestis compared to the prior study from earlier in the same day. EKG leads overliethe chest. The cardiac silhouette is normal in size. The left lung is clear. Theright lung is poorly evaluated due to significant rotation. The possibility ofright basilar infiltrate or atelectati c change cannot be excluded. Mediastinaland hilar structures are poorly evaluated as well.IMPRESSION: Study quite limited due to rotation. Opacity at the right lung base may be infiltrative or atelectatic in nature.Xr Chest PortResult Date: 12/13/19 19History: Fever. Lethargy. FINDINGS: 2 frontal views of the chest are compared tothe prior study of 11/25/2018. EKG leads overlie the chest. The cardiacsilhouette is normal in size. There may be some streaky changes at the lungbases. Evaluation of the lungs and mediastinal structures is quite limited dueto rotation.IMPRESSION: Study quite limited by rotation. Basilar streaks noted.Xr Chest PortResult Date: 11/21/2018 AP portable film of the chest clinical indication pneumonia Study is compared t oprevious examination of November 19, 2018. There has been partial clearing ofstrea ky changes seen at the right base. There has been interval development ofsome hazines s at the left base as well as elevation of the left leaf of thediaphragm. Heart siz e is difficult to evaluate.IMPRESSION: 1. Partial clearing of streaks at right bas e. 2. Haziness at leftbase which may represent infiltrateXr Chest PortResult Date: 11/19/2018History: Respiratory difficulty. FINDINGS: A frontal portable view of the chestis compared to the prior study of 11/07/2016. A large gas-filled s tructure isnoted beneath the left diaphragm, unchanged, likely representing the stoma ch.The cardiac silhouette is normal in size. There is again noted to be shift ofmedia stinal structures to the right. There are some streaky and patchy changesat the ri ght lung base not seen on the prior study and the possibility ofinfiltrative change ca nnot be excluded. A few nonspecific left basilar streaksare noted as well. Promin ence of the right hilum is unchanged and may merely carlos enrique a result of the shift of med iastinal structures.IMPRESSION: New patchy opacity at the right lung base may be in filtrative oratelectatic in nature. Few left basilar streaks are noted as well. Other wisefindings similar.Xr Abd Port 1 VResult Date: 11/21/2018Abdomen 2 views clinical i ndication ileus Study is compared to previousexamination of November 20, 2018. T here has been an interval decrease in boweldistention. Increased stool is note d in the rectal region. Skin clips are againnoted.IMPRESSION: 1. Interval decre ase in bowel distention. 2. Increased stool inrectal regionXr Abd Port 1 VResult Da te: 11/20/2018KUB one view(s) History: Ileus. Comparison: Yesterday. There is diffuse ileusof the small and large bowel which has increased involving the small bowel. Air and fecal material is noted in the rectosigmoid colon. The cecum appears to bein the right hemiabdomen but is otherwise unchanged. There is no evidence ofobstru ction, radiopaque gallstones, or kidney stones. The previously noted tubeoverlyi ng the abdomen is no longer seen.IMPRESSION: Increase of small bowel ileus.Medication s reviewedCurrent Facility-Administered MedicationsMedication Dose Route Frequen cy albuterol-ipratropium (DUO-NEB) 2.5 MG-0.5 MG/3 ML 3 mL Nebulization Q6H RT bacitracin 500 unit/gram packet 1 Packet 1 Packet Topical BID 0.9% sodium chloride infusion 100 mL/hr IntraVENous CONTINUOUS piperacillin-tazobactam (ZOSYN) 3.375 g in 0.9% sodium chloride (MBP/ADV) 100mL MBP 3.375 g IntraVENous Q8H budesonide (PUL MICORT) 500 mcg/2 ml nebulizer suspension 500 mcg NebulizationBID RT ALPRAZolam ( XANAX) tablet 0.5 mg 0.5 mg Per G Tube QHS lamoTRIgine (LaMICtal) tablet 50 mg 50 mg Per G Tube BID valproic acid (as sodium salt) (DEPAKENE) 250 mg/5 mL (5 mL) oral solution 750mg 750 mg Per G Tube BID cinacalcet (SENSIPAR) tablet 60 mg 60 m g Oral DAILY pantoprazole (PROTONIX) granules for oral suspension 40 mg 40 m g Per G TubeACB heparin (porcine) injection 5,000 Units 5,000 Units SubCUTAneous Q1 2H acetylcysteine (MUCOMYST) 100 mg/mL (10 %) nebulizer solution 200 mg 2 mLNebuli zation TID RT methylPREDNISolone (PF) (SOLU-MEDROL) injection 20 mg 20 mg Int raVENous Q12H sodium chloride (NS) flush 5-10 mL 5-10 mL IntraVENous PRNAssessme nt/Plan:Hospital Problems Date Reviewed: 12/14/2018 Codes Class Noted POA Sep sis due to undetermined organism (HCC) ICD-10-CM: A41.9ICD-9-CM: 038.9 12/13/19 19 Unknown Pneumonia ICD-10-CM: J18.9ICD-9-CM: 486 11/08/2018 UnknownAss essment: Acute Respiratory failure with hypercapnia and hypoxia Metabolic acido sis- Resolved] Sepsis poa Metabolic encephalopathy Aspiration Pneumonia Acute COPD Exacerbation Dysphagi s/p surgical placed peg Mentally challenge d Seizure HyperparathyroidPlan:Iv antibioticsO2 NC/ BIPAP nutrition f/u cu lturesnebulizers iv steroids 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 Report incl uded the following informationSBAR, Kardex, ED Summary, Intake/Output, MAR, Recent R esults and Cardiac RhythmNSR. Name Value Range Interpretation Code Description Data Harriett rce(s) Supporting Document(s ) ID Date Data Source [id number] 12/14/2018 01:43:26 PM EDT [facility] Problem: Pressure Injury - Risk ofGoal: *Prevention of pressure injuryDescriptionDocument Butch Scale a nd appropriate interventions in the flowsheet.Outcome: Progressing Towards G oalNote:Pressure Injury Interventions:Sensory Interventions: Assess changes in LOC, Fl oat heels, Keep linens dry andwrinkle-free, Monitor skin under medical devices, Turn and reposition approx.every two hours (pillows and wedges if needed)Moisture I nterventions: Internal/External fecal devices, Check for incontinenceQ2 hours and as needed, Assess need for specialty bedActivity Interventions: Chair cushion , Pressure redistribution bed/mattress(bedtype), Assess need for s pecialty bedMobility Interventions: Float heels, Turn and reposition approx. every twohours(pillow and wedges), Pressure redistribution bed/mattress (bed type)Nu trition Interventions: Document food/fluid/supplement intakeFriction and Shear Interventions: Foam dressings/transparent film/skin sealants ,Apply protective barrier, creams and emollients, Minimize layers, HOB 30 degr eesor less Name Value Range Interpretation Code Description Data Harriett rce(s) Supporting Document(s ) ID Date Data Source [id number] 12/14/2018 01:08:02 PM EDT [facility] Progress NoteMID-[facility] ,P.[facility].Krystian Monae MD., F.C.C.P.Stella Hamilton MD., F.C.C.P. [address] [place] [id number] [place] [phone]: Evelio Carlin Sex: male DOA: 12/12/2018Da te of : 1950 Age: 68 y.o. LOS: LOS: 2 daysSubjective:Mr. Gayla beltran is a 68 y.o. year old male who is being seen for Evelioblanka Dixon a 68 y.o. m fuentes who has been seen for resp failure.pneumonia,recentlydischarged..Dayanara tong with MR,aspiration pneumonia,dysphagia,s/p peg placement,CO PD,pulmonaryembolism,schizophrenia was transferred from the long-term for fe zsb753.3,shortness of breath and tachycardia.Patient is non verbal,unable toprovide history.History obtained from chart review.He was started on IVcefepim e,solumedrol and given a dose of IV vancomycin as per records from [place].Hewas afebrile on arrival to the ER with elevated lactic acid of 5.3 withrespiratory distr ess.course reviewed. He Feels Better Today CAT SCAN CHEST SHOWS R U L PNEUMONIA , L L L PNEUMONIA LARGE LEFT HIATUS HERNIA Past Medical History:Diagnosis Da te Chronic obstructive pulmonary disease (HCC) GERD (gastroesophageal reflux d isease) Hyperparathyroidism (HCC) Mental retardation Parkinsonism due t o drug (HCC) Pneumonia Psychiatric disorder Pulmonary emboli (HCC) Sc hizophrenia (HCC) Objective:Vital Signs:Patient Vitals for the past 24 hrs : BP Temp Pulse Resp SpO2 Meubsc84/01/19 1200 119/61 97.1 F (36.2 C) 62 15 98 % -05/03 1100 109/56 - 63 24 92 % -12/14/18 1000 117/64 - 64 22 91 % -12/14/18 0900 (!) 1 / - 71 15 91 % -12/14/18 0800 114/63 97.8 F (36.6 C) (!) 59 17 91 % -12/14/18 07 00 115/60 - 68 25 90 % 55.5 kg (122 lb 5.7 oz)12/14/18 0643 - - 68 23 93 % - 9 0600 117/58 - 61 19 93 % -12/14/18 0509 113/63 - 61 21 99 % -12/14/18 0500 113/6 3 - 64 26 96 % -12/14/18 0400 115/62 97.7 F (36.5 C) 62 23 94 % -12/14/18 0325 - - 62 22 95 % -12/14/18 0300 103/55 - (!) 59 27 98 % -12/14/18 0200 95/53 - 60 25 94 % - 12/14/18 0100 102/57 - 64 (!) 31 94 % -12/14/18 0000 102/59 97.8 F (36.6 C) 66 28 92 % -12/13/18 2305 - - 70 27 92 % -12/13/18 2300 91/51 - 73 (!) 35 92 % -0 12/13/182 - - 77 17 92 % -12/13/18 2200 111/58 - 79 23 (!) 89 % -12/13/18 2100 1 63 - 78 23 90 % -12/13/182002 - - - - - 54.8 kg (120 lb 13 oz)12/13/18 2000 117/ 48 98.1 F (36.7 C) 79 18 92 % -12/13/18 1900 112/72 - 75 19 99 % -12/13/18 1800 118/76 - 78 19 90 % -12/13/18 1700 116/70 - 82 26 98 % -12/13/18 1600 110/88 98.8 F (37.1 C) 75 20 98 % -12/13/18 1500 116/57 - 77 24 98 % -12/13/18 1400 (!) 109/91 - 8 2 22 90 % -12/13/18 1300 99/75 - 77 17 90 % -Pulse OX:SpO2 Readings from Last 6 Enco unters:12/14/18 98%11/27/18 91%09/26/15 96%@LASTSAO2(6)@Physical Exam:AWAKE , N ON VERBAL , LESS DYSPNEIC. WEAK , EMACIATED . General: Alert, coop erative, MILS distress, appears stated age. Head: Normocephalic, w ithout obvious abnormality, atraumatic. Eyes: Conjunctivae/corneas clear. PERRL, EOMs intact. Nose: Nares normal. No drainage or sinus tenderness Throat: Lips, mucosa, and tongue normal Neck: Supple, symmet rical, trachea midline, no adenopathy,thyroid: no enlargem ent/tenderness/nodules, no carotid bruit and no JVD. Lungs: RALES + R U L , L L L , AIR EXCHANGE IS BETTER TODAY ,to auscultation bilaterally. Chest Wal l: No tenderness or deformity. Heart: Regular rate and rhythm, S1, S2 normal, ES GR 1/ 6 murmur,click, rub or gallop. Abdomen: Soft, non-tender. Bowel sounds normal. No masses, No organomegaly. Extremities: Extremities normal, atraumatic, no cyanosis or edema. Pulses: 4+ bilaterally. Skin: Skin color, texture, turgor normal. No rashes or lesions. Neurologi c: CNII-XII intact. No focal motor or sensory deficit.Intake and Output:Last t hree shifts: 12/12 1901 - 12/14 0700In: 3818.3 [I.V.:3248.3]Out: 770 [Urine:770] Lab Results:Recent Results (from the past 24 hour(s))RENAL FUNCTION PANEL Collection Time: 12/14/18 4:48 AMResult Value Ref Range Sodium 139 136 - 145 mmol/L Potassium 4. 2 3.5 - 5.1 mmol/L Chloride 102 98 - 107 mmol/L CO2 33 (H) 21 - 32 mmol/L Anion g ap 8 (L) 10 - 20 mmol/L Glucose 84 74 - 106 mg/dL BUN 13 7 - 18 mg/dL Creatinine 0.3 4 (L) 0.70 - 1.30 mg/dL GFR est AA >60 >60 ml/min/1.73m2 GFR est non-AA >60 >60 ml/ min/1.73m2 Calcium 8.5 8.5 - 10.1 mg/dL Phosphorus 2.6 2.5 - 4.9 mg/dL Albumin 2 .0 (L) 3.5 - 4.7 g/dLMAGNESIUM Collection Time: 12/14/18 4:48 AMResult Value Ref Range Magnesium 2.0 1.6 - 2.6 mg/dLCBC WITH AUTOMATED DIFF Collection Time: 12/14/18 4:48 AMResult Value Ref Range WBC 8.6 4.8 - 10.6 K/uL RBC 3.29 (L) 4.70 - 6.00 M/uL HGB 10.8 (L) 14.0 - 18.0 g/dL HCT 32.6 (L) 42.0 - 52.0 % MCV 99.1 (H) 81.0 - 94.0 F L MCH 32.8 27.0 - 35.0 PG MCHC 33.1 30.7 - 37.3 g/dL RDW 16.0 (H) 11.5 - 14.0 % JOCELYN TELET 205 130 - 400 K/uL MPV 9.6 9.2 - 11.8 FL NEUTROPHILS 85 (H) 48.0 - 72.0 % LYMP HOCYTES 11 (L) 18.0 - 40.0 % MONOCYTES 4 2.0 - 12.0 % EOSINOPHILS 0 0.0 - 7.0 % BASOP HILS 0 0.0 - 3.0 % ABS. NEUTROPHILS 7.3 (H) 1.5 - 6.6 K/UL ABS. LYMPHOCYTES 0.9 (L) 1.5 - 3.5 K/UL ABS. MONOCYTES 0.3 0.0 - 1.0 K/UL ABS. EOSINOPHILS 0.0 0.0 - 0.7 K/UL ABS. BASOPHILS 0.0 0.0 - 0.1 K/UL DF AUTOMATED IMMATURE GRANULOCYTES 1 0.0 - 2.0 %BLOOD GAS, ARTERIAL Collection Time: 12/14/18 5:54 AMResult Value Ref Range pH 7.38 7.35 - 7.45 PCO2 54 (H) 32 - 48 mmHg PO2 70 (L) 83 - 108 mmHg CO2, TOTAL 34 ( H) 19 - 24 mmol/L BICARBONATE 32 (H) 21 - 28 mmol/L O2 SAT 97 94 - 98 % BASE EXCESS 5 .3 (H) 0 - 3 mmol/L SITE LEFT RADIAL MIRANDA'S TEST POSITIVE DEVICE NASAL O2 O2 FLOW 3 L/min Performed by [id number], POC Collection Time: 12/14/18 11:59 AMResult Value Ref Range Glucose, bedside 100 65 - 110 MG/DLABG:Recent Labs 4 0 PH 7.38 7.40PCO2 54* 55*PO2 70* 56*HCO3 32* 34*Recent Glucose Results:Lucille garcía ResultsComponent Value Date/Time GLU 84 12/14/2018 04:48 AM GLUCPOC 100 12/15/19 11:59 AM@[email or web address]@[facility] Results Procedure Component Value Units Date/Time CULTURE, URINE [[id number]] Col lected: 12/12/182003 Order Status: Completed Specimen: Urine Updated: 05/03 Special Requests: NO SPECIAL REQUESTS Culture result: NO GROWTH 1 DA Y CULTURE, BLOOD [[id number]] Collected: 12/12/18 194 Order Status: Completed S pecimen: Blood Updated: 12/14/18 0701 Special Requests: NO SPECIAL REQUESTS C ulture result: NO GROWTH 2 DAYS CULTURE, BLOOD [[id number]] Collected: 12/12/18 1 940 Order Status: Completed Specimen: Blood Updated: 12/14/18 0701 Special Request s: NO SPECIAL REQUESTS Culture result: NO GROWTH 2 DAYS CULTURE, URINE [[id number]] Order Status: Sent Specimen: Cath UrineImages:[email or web address]@Xr Chest Sngl VResult Date: 11/25/2018AP portable film of the chest clinical indication pneumonia Study is compared toprevious examination of November 22, 2018. Study demonstrates a le ft pleuraleffusion as well as infiltrate at the left base. This was present on previ ousstudy. There has been interval development of a small right pleural effusionwith li near streaking at the right base this may represent infiltrate oratelectasis. Hear t size difficult to evaluate.IMPRESSION: Infiltrate left base with pleural effusi on, right pleural effusionwith streaking at right lower lung field which may represe nt infiltrate oratelectasisXr Chest Sngl VResult Date: 11/22/2018History: PNEUMONI A Technique: Portable chest x-ray 11/22/2018 8:03 AM Comparison:11/21/2018. FINDINGS: T he exam is rotated. There is a small left pleural effusionwith probable infiltrate or atelectasis. There is improved aeration of the rightlung since the prior. Evalua tion of the cardiac silhouette is limited byprojection. The visualized osseous str uctures appear unremarkable.IMPRESSION: There is a small left pleural effusion with pr obable infiltrate oratelectasis. There is improved aeration of the right lung sinc e the prior.Xr Abd (kub)Result Date: 11/22/2018EXAM: XR ABD (KUB) INDICATION: ileus COMPARISON: None. FINDINGS: A supineradiograph of the abdomen shows a normal bowel gas pattern. No soft tissuemasses or pathologic calcification s are identified. The bones and soft tissuesare within normal limits. There i s moderate fecal material overlying the pelvis.There are skin kalpana along the midline.IMPRESSION: No dilated loops of bowel are identified to suggest obstruction.Xr Abd (kub)Result Date: 11/19/2018XR ABD (KUB)-SINGLE VIEW PRIOR: None HISTORY: E valuate for G-tube placementFINDINGS: The examination is limited-the pt is in an R AO/LPO position. A tubeoverlies the abdomen extending from the right lower quadrant to the left upperquadrant and whether this represents a gastric tube cannot be defi nitivelydetermined. The bowel gas pattern is nonspecific. No abnormally dilated loop ofbowel, bowel wall thickening, pneumatosis or free air is identified. No abnormalde nsities or calcifications are identified. There are midline surgical skinstaples i dentified. The visualized osseous structures are unremarkable.IMPRESSION: 1. Tube ov erlying the abdomen terminating in the region of stomach;as described and discussed ab ove on this single oblique view the exact locationof this tube cannot be determine d. 2. Otherwise unremarkable abdomen/KUB.Ct Chest Wo ContResult Date: 12/13/2018Histo ry: Respiratory difficulty. FINDINGS: CT scanning of the chest wasperformed helic ally from the lung apices to the upper abdomen withoutintravenous contrast mate rial. Sagittal and coronal reconstructed images aresubmitted. Scanning was perfor med utilizing dose lowering techniques and iscompared to the prior study of 11/09/19 19. The study is quite limited by patientpositioning. Evaluation of thorac ic vascular structures is limited withoutintravenous contrast material davalos s not reveal evidence of aneurysmal dilatationor definite CT evidence of dis section. Coronary artery calcification is seen.There is minimal calcification of t he aortic arch. There is minimalcalcification of the descending thoracic aorta. There is no definite evidence ofany pathologically enlarged lymph node in the visualized po rtions of themediastinum or axillae. Evaluation of pulmonary parenchymal stru ctures revealssome atelectatic change in the right upper lobe. There is a small left pleuraleffusion as well as left basilar atelectatic change. There is some patchy opacity within the right middle lobe and right lower lobe which could also beinfi ltrative in nature. Limited evaluation of upper abdominal structures isunremarkabl e. There is deviation of mediastinal structures to the right. Thiscould be as result of atelectatic change within the right lung. This has beenseen previously and is unchanged.IMPRESSION: Extremely limited study by patient positioning. De viation ofmediastinal structures to the right as has been seen on prior studies. Leftp leural effusion. Bilateral infiltrates and atelectasis, greater on the rightthan th e left.Xr Chest PortResult Date: 12/13/2018History: Respiratory difficulty . FINDINGS: A frontal portable view of the chestis compared to the prior study from earlier in the same day. EKG leads overliethe chest. The cardiac silhouette is normal in size. The left lung is clear. Theright lung is poorly evaluated due to significant rotation. The possibility ofright basilar infiltrate or atelectati c change cannot be excluded. Mediastinaland hilar structures are poorly evaluated as well.IMPRESSION: Study quite limited due to rotation. Opacity at the right lung base may be infiltrative or atelectatic in nature.Xr Chest PortResult Date: 12/13/19 19History: Fever. Lethargy. FINDINGS: 2 frontal views of the chest are compared tothe prior study of 11/25/2018. EKG leads overlie the chest. The cardiacsilhouette is normal in size. There may be some streaky changes at the lungbases. Evaluation of the lungs and mediastinal structures is quite limited dueto rotation.IMPRESSION: Study quite limited by rotation. Basilar streaks noted.Xr Chest PortResult Date: 11/21/2018 AP portable film of the chest clinical indication pneumonia Study is compared t oprevious examination of November 19, 2018. There has been partial clearing ofstrea ky changes seen at the right base. There has been interval development ofsome hazines s at the left base as well as elevation of the left leaf of thediaphragm. Heart siz e is difficult to evaluate.IMPRESSION: 1. Partial clearing of streaks at right bas e. 2. Haziness at leftbase which may represent infiltrateXr Chest PortResult Date: 11/19/2018History: Respiratory difficulty. FINDINGS: A frontal portable view of the chestis compared to the prior study of 11/07/2016. A large gas-filled s tructure isnoted beneath the left diaphragm, unchanged, likely representing the stoma ch.The cardiac silhouette is normal in size. There is again noted to be shift ofmedia stinal structures to the right. There are some streaky and patchy changesat the ri ght lung base not seen on the prior study and the possibility ofinfiltrative change ca nnot be excluded. A few nonspecific left basilar streaksare noted as well. Promin ence of the right hilum is unchanged and may merely carlos enrique a result of the shift of med iastinal structures.IMPRESSION: New patchy opacity at the right lung base may be in filtrative oratelectatic in nature. Few left basilar streaks are noted as well. Other wisefindings similar.Xr Abd Port 1 VResult Date: 11/21/2018Abdomen 2 views clinical i ndication ileus Study is compared to previousexamination of November 20, 2018. T here has been an interval decrease in boweldistention. Increased stool is note d in the rectal region. Skin clips are againnoted.IMPRESSION: 1. Interval decre ase in bowel distention. 2. Increased stool inrectal regionXr Abd Port 1 VResult Da te: 11/20/2018KUB one view(s) History: Ileus. Comparison: Yesterday. There is diffuse ileusof the small and large bowel which has increased involving the small bowel. Air and fecal material is noted in the rectosigmoid colon. The cecum appears to bein the right hemiabdomen but is otherwise unchanged. There is no evidence ofobstru ction, radiopaque gallstones, or kidney stones. The previously noted tubeoverlyi ng the abdomen is no longer seen.IMPRESSION: Increase of small bowel ileus.Medication s:Current Facility-Administered MedicationsMedication Dose Route Frequen cy 0.9% sodium chloride infusion 100 mL/hr IntraVENous CONTINUOUS piperacillin-cuba obactam (ZOSYN) 3.375 g in 0.9% sodium chloride (MBP/ADV) 100mL MBP 3.375 g In traVENous Q8H budesonide (PULMICORT) 500 mcg/2 ml nebulizer suspension 500 mcg N ebulizationBID RT albuterol-ipratropium (DUO-NEB) 2.5 MG-0.5 MG/3 ML 3 mL Nebul ization Q4H RT ALPRAZolam (XANAX) tablet 0.5 mg 0.5 mg Per G Tube QHS lamoTRIgine ( LaMICtal) tablet 50 mg 50 mg Per G Tube BID valproic acid (as sodium salt) (DEPAKENE ) 250 mg/5 mL (5 mL) oral solution 750mg 750 mg Per G Tube BID cinacalcet (SENSIPAR) tablet 60 mg 60 mg Oral DAILY pantoprazole (PROTONIX) granules for oral suspension 40 mg 40 mg Per G TubeACB heparin (porcine) injection 5,000 Units 5,000 Units SubCU TAneous Q12H acetylcysteine (MUCOMYST) 100 mg/mL (10 %) nebulizer solution 200 mg 2 mLNebulization TID RT methylPREDNISolone (PF) (SOLU-MEDROL) injection 20 mg 20 m g IntraVENous Q12H sodium chloride (NS) flush 5-10 mL 5-10 mL IntraVENous PRNAc tive Problems: Pneumonia (11/08/2018) Sepsis due to undetermined organism (HCC) (12/12)Assessment: Sepsis. Aspiration pneumonia.R U L , L L L Acute HYPERCAP NICOLAS AND HYPOXIC RESPIRATORY FAILURE Acute COPD exacerbation. Dysphagia. Atelecta sis. LLL HIATUS HERNIA Plan: 1. Continue IV zosyn.DUO NEB QID BIPAP FOR SUPPORT MUCOMYST TO LOOSEN SECTERTIONDS I V SOLUMEDROL MAY TRANSFE R TO FLOOR KRYSTIAN MONAE MD. C P12:59 PM Name Value Range Interpretation Code Description Data Harriett rce(s) Supporting Document(s ) ID Date Data Source [id number] 12/14/2018 01:02:34 PM EDT [facility] RECOMMENDATIONS:Suggest advance Pulmocar e to goal rate of 50 mL/hr with 125 mL free water flushq 3 hr once IVF d/c'dNUTRITIO N ASSESSMENT MST ScreenSubjective: Pt tolerating EN at 20 mL/hr; transferring to medical floor per RN.Admitting Dx: Sepsis due to undetermined organism (HCC) [A41. 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) Pneumoni a Psychiatric disorder Pulmonary emboli (HCC) Schizophrenia (HCC)Diet Order: Pu lmocare at 20 mL/hr, free water 100 mL q 6 hr, Kamar dailyActive OrdersDiet DIET NECKTIE MAKER OAllergies: Patient has no known allergies.Labs:CMP:Lab ResultsComponent Value Date/Time NA 139 12/14/2018 04:48 AM K 4.2 12/14/2018 04:48 AM CL 102 9 04:48 AM CO2 34 (H) 12/14/2018 05:54 AM CO2 33 (H) 12/14/2018 04:48 AM AGAP 8 (L) 04:48 AM GLU 84 12/14/2018 04:48 AM BUN 13 12/14/2018 04:48 AM CREA 0.34 (L) 12/14/2018 04:48 AM GFRAA >60 12/14/2018 04:48 AM GFRNA >60 12/14/2018 04:48 AM C A 8.5 12/14/2018 04:48 AM MG 2.0 12/14/2018 04:48 AM PHOS 2.6 12/14/2018 04:48 AM AL B 2.0 (L) 12/14/2018 04:48 AMNutritionally Significant Meds: NS at 100 mL/hr, Solu- Medrol, ProtonixAssessmentLast 3 Recorded Weights in this Encounter 12/12/18 1910 12/13/18200212/14/18 0700Weight: 53.1 kg (117 lb) 54.8 kg (120 lb 13 oz) 55.5 kg (122 lb 5.7 oz)Height: 5' 2" (157.5 cm)Body mass index is 22.38 kg/m .UBW: Pt unable to state %UBW: UTAIBW: 118 lb %IBW: 103Wt Readings from Last 3 Encounters: 55.5 kg (122 lb 5.7 oz)11/27/18 53.3 kg (117 lb 6.4 oz)09/26/15 54.9 kg (121 lb)Nutrition Focused Physical Assessment:[] AcceptableTemple Region Muscle Wasting-M ildClavicle Region Muscle Wasting-MildOral/GI Issues:+PEGSmall, soft BM this amSkin:Br dheeraj score 11Edema:Peripheral Vascular (WDL): Within Defined LimitsLLE: TraceAppetite: n/a% Meal Intake: NPONo data found.Fluid Intake:Intake/Output Summary (Last 24 ho urs) at 12/14/2018 0939Last data filed at 12/14/2018 0700Gross per 24 hourIntake 357 0 mlOutput 420 mlNet 3150 mlNutrition Rx: 1665-1940kcal; 69-83g protein (1.25-1.5g /kg); 1665-1940ml fluid(1ml/kcal)[based on: 30-35 Kcal/kg]% Estimated Energy Needs M et: 25-50%% Estimated Protein Needs Met: 25-50%% Fluid Needs Met: >100%Education Needs: [x] Not indicated at this time [] Indicated at this timeNutrition Diagn osisIncreased protein and energy needs related to high risk skin breakdown asev idenced by ashlee score 11Intervention:Suggest advance Pulmocare to goal rate of 50 mL/hr (1800 kcal, 75 gm pro, 127 gmCHO, 112 gm fat, 942 mL water ) with 125 mL free water flush q 3 hr once IVFd/c'dGoals:Pt to progress towards remberto ting >80% nutrient needs within 3-7 daysMonitoring and EvaluationFollow EN/P N RxSkin integrityDischarge Planning:Pending Clinical Course [x] No cultural, religi ous, or ethnic dietary needs identified [] Cultural, quaker and ethnic food pref erences identified and addressed [] Participated in care plan, discharge jocelyn nning/Interdisciplinary roundsAlexa R Favorito, RD Name Value Range Interpretation Code Description Data Harriett rce(s) Supporting Document(s ) ID Date Data Source [id number] 12/14/2018 12:29:38 PM EDT [facility] Name Value Range Interpretation Description Data Sup porting Code Source(s) Document(s ) Glucose 100 MG/DL 65-110 [facility] [Mass/volume] Taoist in Blood by Hospital Automated test strip ID Date Data Source [id number] 12/14/2018 10:16:06 AM EDT [facility] ADMISSION NOTENAME: Evelio Morgan B: 1950MRN: [id number]/Time: 12/13/2018 9:15 AMSubjective:CHIEF COMPLA INT: Lethargy and feverHISTORY OF PRESENT ILLNESS:Evelio is a 68 y.o. male who presents from [facility] with medical history ofDysphagia with recent admission s/p lemus rgical peg placement on 11/17/18, severeintellectual disability, Chronic respiratory failure, hyperparathyroidunspecified, personal h/ o pulmonary embolus, anxiety disorder, kyphosis andschizophrenia.The patient is unable to provide a history due to his mental disability. Thenursing home staf f reporting pt had a cough, fever to 103 F and hypoxia. ChestXR showed suspicion f or a Pneumonia. Pt was given Iv Cefepime, Vancomycin andSolu- medrol. Pt was later found minimally responsive and was sent to the ED. In the ED, chest xr showed some streaky changes at the lung bases. ABG showedpH 7.40/55/56/34/ O2 SAT 90 % on 2 LPM and Lactic Acid was elevated to 5.5. Thepatient was given Iv Zosyn, Solu-Medr ol, nebulizer and IVF.Repeat lactic acid was still elevated at 5.3.The patient was ad mitted with enxounter diagnosis of Sepsis due to unspecifiedorganism, Pnermonia, unspe cified and COPD exacerbation.The patient was seen and examined at bedside he is less lethargic, nonverbbal.He is coughing. 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 No pertinent surgical history.Social HistoryTobacco Use Smoki ng status: Never Smoker Smokeless tobacco: Never UsedSubstance Use Topics Alcohol use: NoHistory reviewed. No pertinent family history.No Known AllergiesPrior to Admis elio medicationsMedication Sig Start Date End Date Taking? Authorizing Providerpantopr azole (PROTONIX) 40 mg granules for oral suspension 40 mg by Per G Tuberoute Kyleigh y (before breakfast). 11/28/18 Yes Mili Hills, DObudesonide (PULMICORT) 0.5 mg /2 mL nbsp 2 mL by Nebulization route two (2) timesa day for 30 days. 11/27/18 12/27/18 Yes Mili Hills, DOmultivitamin (ONE A DAY) tablet Take 1 Tab by mouth daily. Yes Provider,Historicalclorazepate (TRANXENE) 3.75 mg tablet Take by mouth nightly. Yes Provider,Historicalalbuterol-ipratropium (DUO-NEB) 2.5 mg-0.5 mg/3 ml nebu 3 mL by Nebulizationroute every six (6) hours as needed. Yes Provider, HistoricallamoTRIgine (LAMICTAL) 25 mg t ablet Take 50 mg by mouth two (2) times a day.Yes Provider, Historicalcinacalcet ( SENSIPAR) 30 mg tablet Take 60 mg by mouth daily. Yes Provider,Historicalvalproat e (DEPAKENE) 250 mg/5 mL syrup Take 750 mg by mouth two (2) times a day.Yes Provider, HistoricalREVIEW OF SYSTEMS: [x] Unable to obtain ROS due to patient factors.Object britni:VITALS:Visit VitalsBP 110/58Pulse 73Temp 97.4 F (36.3 C)Resp 23Ht 5' 2" (1.575 m)Wt 53.1 kg (117 lb)SpO2 91%BMI 21.40 kg/m PHYSICAL EXAM:General: Alert, coopera tive, no distress, appears stated age.Head: Normocephalic, without obvious abnormali ty, atraumatic.Eyes: Conjunctivae clear, anicteric sclerae. Pupils are equalThro at: Lips, mucosa, and tongue normal. No ThrushNeck: Supple, symmetrical, no ad enopathy, no carotid bruit and no JVD.Back: Symmetric, No CVA tenderness.Lungs: Bilateral air entry.. Decreased breath sounds RUL. No Wheezing orRhonchi. No rales.Chest wall: No Accessory muscle use.Heart: Regular rate and rhythm, n o murmur, or rubAbdomen: Positive peg, non-tender. Not distended. Bowel sounds normal. NomassesExtremities: Extremities normal, atraumatic, No cyanosis. No deepthi ma. No clubbingSkin: Warm and dry. No rashes or lesions. Not JaundicedLymph n odes: Cervical, supraclavicular normal.Psych: Not anxious or agitated.Neurologic: EOM s intact. No facial asymmetry. No aphasia or slurred speech.Generalized weakness, whe el chair bound., Alert and Awake, nonverbal. .LAB DATA REVIEWED:Recent Results (from the past 24 hour(s))EKG, 12 LEAD, INITIAL Collection Time: 12/12/18 7:13 PMResult Value Ref Range Ventricular Rate 82 BPM Atrial Rate 81 BPM P-R Interval 122 ms Q RS Duration 132 ms Q-T Interval 436 ms QTC Calculation (Bezet) 509 ms Calculated P [place] 62 degrees Calculated R [place] 65 degrees Calculated T [place] 66 degrees Diagnosis Sinus rhythmIVCD, consider atypical RBBBProbable inferior infarct, acuteLate ral leads are also involvedGLUCOSE, POC Collection Time: 12/12/18 7:20 PMResult Value Ref Range Glucose, bedside 195 (H) 65 - 110 MG/DLCULTURE, BLOOD Collection Patria e: 12/12/18 7:40 PMResult Value Ref Range Special Requests: NO SPECIAL REQUESTS Cu lture result: NO GROWTH AFTER 9 HOURSLACTIC ACID Collection Time: 12/12/18 7:40 PMR esult Value Ref Range Lactic acid 5.5 (HH) 0.4 - 2.0 MMOL/LCULTURE, BLOOD Collectio n Time: 12/12/18 7:40 PMResult Value Ref Range Special Requests: NO SPECIAL REQUE STS Culture result: NO GROWTH AFTER 9 HOURSMETABOLIC PANEL, COMPREHENSIVE Manuel ection Time: 12/12/18 7:40 PMResult Value Ref Range Sodium 132 (L) 136 - 145 mmol/ L Potassium 4.2 3.5 - 5.1 mmol/L Chloride 92 (L) 98 - 107 mmol/L CO2 34 (H) 21 - 32 m mol/L Anion gap 10 10 - 20 mmol/L Glucose 155 (H) 74 - 106 mg/dL BUN 12 7 - 18 mg/dL C reatinine 0.74 0.70 - 1.30 mg/dL GFR est AA >60 >60 ml/min/1.73m2 GFR est non-AA >60 >60 ml/min/1.73m2 Calcium 9.4 8.5 - 10.1 mg/dL Bilirubin, total 0.3 0.2 - 1.0 mg/ dL ALT (SGPT) 13 13 - 61 U/L AST (SGOT) 19 15 - 37 U/L Alk. phosphatase 69 45 - 117 U/ L Protein, total 6.7 6.4 - 8.2 g/dL Albumin 2.0 (L) 3.5 - 4.7 g/dL Globulin 4.7 1.7 - 4.7 g/dL A-G Ratio 0.4 (L) 0.7 - 2.8CBC WITH AUTOMATED DIFF Collection Time: 7:40 PMResult Value Ref Range WBC 11.0 (H) 4.8 - 10.6 K/uL RBC 3.93 (L) 4.70 - 6.00 M/uL HGB 13.1 (L) 14.0 - 18.0 g/dL HCT 38.6 (L) 42.0 - 52.0 % MCV 98.2 (H) 81.0 - 94.0 FL MCH 33.3 27.0 - 35.0 PG MCHC 33.9 30.7 - 37.3 g/dL RDW 15.1 (H) 11.5 - 14. 0 % PLATELET 191 130 - 400 K/uL MPV 9.6 9.2 - 11.8 FL NEUTROPHILS 88 (H) 48.0 - 72.0 % LYMPHOCYTES 7 (L) 18.0 - 40.0 % MONOCYTES 5 2.0 - 12.0 % EOSINOPHILS 0 0.0 - 7.0 % B ASOPHILS 0 0.0 - 3.0 % ABS. NEUTROPHILS 9.5 (H) 1.5 - 6.6 K/UL ABS. LYMPHOCYTES 0.8 (L) 1.5 - 3.5 K/UL ABS. MONOCYTES 0.6 0.0 - 1.0 K/UL ABS. EOSINOPHILS 0.0 0.0 - 0.7 K/UL ABS. BASOPHILS 0.0 0.0 - 0.1 K/UL DF AUTOMATED IMMATURE GRANULOCYTES 1 0.0 - 2.0 %TROPONIN I Collection Time: 12/12/18 7:40 PMResult Value Ref Range Troponin-I , Qt. <0.02 0.00 - 0.05 NG/MLCK Collection Time: 12/12/18 7:40 PMResult Value Ref Range CK 53 39 - 308 U/LBNP Collection Time: 12/12/18 7:40 PMResult Value Ref Range BNP 87 0 - 100 pg/mLPTT Collection Time: 12/12/18 7:40 PMResult Value Ref Range aPTT 28.8 (H) 21.0 - 28.0 SECPROTHROMBIN TIME + INR Collection Time: 12/12/18 7:40 PM Result Value Ref Range Prothrombin time 11.2 (H) 9.4 - 11.1 sec INR 1.1 0.8 - 1.2URIN ALYSIS W/ RFLX MICROSCOPIC Collection Time: 12/12/18 8:04 PMResult Value Ref Range Color DARK YELLOW (A) YEL Appearance CLEAR CLEAR Specific gravity 1.035 (H) 1.003 - 1.030 pH (UA) 6.5 4.6 - 8.0 Protein 30 (A) NEG mg/dL Glucose NEGATIVE NEG mg/dL Ke tone 5 (A) NEG mg/dL Bilirubin NEGATIVE NEG Blood NEGATIVE NEG Urobilinogen 0.2 0.2 - 1.0 EU/dL Nitrites NEGATIVE NEG Leukocyte Esterase TRACE (A) NEG WBC 5-10 0 - 5 /h pf RBC 3-5 0 - 3 /hpf Epithelial cells 0-3 0 - 10 /hpf Bacteria NONE NONE /hpf Casts 5-10 (A) NONE /lpf Crystals, urine NONE NONE /LPFBLOOD GAS, ARTERIAL Collection Time: 12/12/18 8:07 PMResult Value Ref Range pH 7.40 7.35 - 7.45 PCO2 55 (H) 32 - 48 mmH g PO2 56 (L) 83 - 108 mmHg CO2, TOTAL 36 (H) 19 - 24 mmol/L BICARBONATE 34 (H) 21 - 2 8 mmol/L O2 SAT 90 (L) 94 - 98 % BASE EXCESS 7.5 (H) 0 - 3 mmol/L SITE LEFT RADIAL AL JUAN'S TEST POSITIVE DEVICE NASAL O2 O2 FLOW 2 L/min Performed by [id number] ACID Manuel ection Time: 12/13/18 12:30 AMResult Value Ref Range Lactic acid 5.3 (HH) 0.4 - 2.0 MMOL/LRENAL FUNCTION PANEL Collection Time: 12/13/18 4:24 AMResult Value Ref Range Sodium 136 136 - 145 mmol/L Potassium 4.3 3.5 - 5.1 mmol/L Chloride 100 98 - 107 mmol/ L CO2 30 21 - 32 mmol/L Anion gap 10 10 - 20 mmol/L Glucose 134 (H) 74 - 106 mg/dL BU N 11 7 - 18 mg/dL Creatinine 0.42 (L) 0.70 - 1.30 mg/dL GFR est AA >60 >60 ml/min/1.7 3m2 GFR est non-AA >60 >60 ml/min/1.73m2 Calcium 8.4 (L) 8.5 - 10.1 mg/dL Phospho tierra 2.4 (L) 2.5 - 4.9 mg/dL Albumin 2.0 (L) 3.5 - 4.7 g/dLMAGNESIUM Collection Time: 12/13/18 4:24 AMResult Value Ref Range Magnesium 1.9 1.6 - 2.6 mg/dLCBC WITH AU TOMATED DIFF Collection Time: 12/13/18 4:24 AMResult Value Ref Range WBC 8.4 4.8 - 1 0.6 K/uL RBC 3.39 (L) 4.70 - 6.00 M/uL HGB 11.2 (L) 14.0 - 18.0 g/dL HCT 33.7 (L) 4 2.0 - 52.0 % MCV 99.4 (H) 81.0 - 94.0 FL MCH 33.0 27.0 - 35.0 PG MCHC 33.2 30.7 - 37. 3 g/dL RDW 15.4 (H) 11.5 - 14.0 % PLATELET 138 130 - 400 K/uL MPV 9.1 (L) 9.2 - 11. 8 FL NEUTROPHILS 85 (H) 48.0 - 72.0 % LYMPHOCYTES 10 (L) 18.0 - 40.0 % MONOCYT ES 5 2.0 - 12.0 % EOSINOPHILS 0 0.0 - 7.0 % BASOPHILS 0 0.0 - 3.0 % ABS. NEUTROPHILS 7.2 (H) 1.5 - 6.6 K/UL ABS. LYMPHOCYTES 0.8 (L) 1.5 - 3.5 K/UL ABS. MONOCYTES 0.4 0. 0 - 1.0 K/UL ABS. EOSINOPHILS 0.0 0.0 - 0.7 K/UL ABS. BASOPHILS 0.0 0.0 - 0.1 K/UL D F AUTOMATED IMMATURE GRANULOCYTES 1 0.0 - 2.0 %LACTIC ACID Collection Time: 12/13/18 4:24 AMResult Value Ref Range Lactic acid 2.1 (HH) 0.4 - 2.0 MMOL/LAssessment/Plan:Act britni Problems: Pneumonia (11/08/2018) Sepsis due to undetermined organism (HCC) (12/12) Acute Respiratory Failure with hypercapnia and Hypoxia Metabolic Acidos is - Resolving Sepsis -poa Metabolic Encephalopathy Aspiration Pneumonia Acut e COPD exacerbation Dysphagia s/p surgically place,emt of peg Mentally challenged Sei zure disorder Hyperparathyroid PLAN:Risk of deterioration: []Low []Moderate [x] High1. Admit to CCU2. IV fluids3.O2 NC/BIPAP4. Iv Zosyn5. Consult pulmonary6 . Consult ID7. CT chest8. Restart officer captain medications via pegProphylaxis: []Loven ox []Coumadin [x]Hep SQ []SCD's []H2B/PPIDisposition: []Home w/ Family []HH PT,OT,RN [x]SNF/LTC []SAH/RehabDiscussed Code Status: [x] Full Code []DNR Care Plan discussed with: []Patient []Family []ED Care Manage r [x]ED Doc [x]Specialist : Yris Pearson pt RN in CCU Admitting Physician: Mili Hills DO December 13, 2018 9:15 AM Name Value Range Interpretation Code Description Data Harriett rce(s) Supporting Document(s ) ID Date Data Source [id number] 12/14/2018 09:04:40 AM EDT [facility] ID Progress Note12/14/2018Subjective:Shauna nt is non verbal,unable to provide any historyAfebrile .Cultures pending..Objec tive:Vitals:Patient Vitals for the past 24 hrs: BP Temp Pulse Resp SpO2 Ptqvho9812/14 0700 115/60 - 68 25 90 % 55.5 kg (122 lb 5.7 oz)12/14/18 0643 - - 68 23 93 % -05/03 0600 117/58 - 61 19 93 % -12/14/18 0509 113/63 - 61 21 99 % -12/14/18 0500 113/6 3 - 64 26 96 % -12/14/18 0400 115/62 97.7 F (36.5 C) 62 23 94 % -12/14/18 0325 - - 62 22 95 % -12/14/18 0300 103/55 - (!) 59 27 98 % -12/14/18 0200 95/53 - 60 25 94 % - 12/14/18 0100 102/57 - 64 (!) 31 94 % -12/14/18 0000 102/59 97.8 F (36.6 C) 66 28 92 % -12/13/18 2305 - - 70 27 92 % -12/13/18 2300 91/51 - 73 (!) 35 92 % -0 12/13/18 2222 - - 77 17 92 % -12/13/18 2200 111/58 - 79 23 (!) 89 % -12/13/18 2100 1 - 78 23 90 % -12/13/182002 - - - - - 54.8 kg (120 lb 13 oz)12/13/181999 117/ 48 98.1 F (36.7 C) 79 18 92 % -12/13/18 1900 112/72 - 75 19 99 % -12/13/18 1800 118/76 - 78 19 90 % -12/13/18 1700 116/70 - 82 26 98 % -12/13/18 1600 110/88 98.8 F (37.1 C) 75 20 98 % -12/13/18 1500 116/57 - 77 24 98 % -12/13/18 1400 (!) 109/91 - 8 2 22 90 % -12/13/18 1300 99/75 - 77 17 90 % -12/13/18 1200 120/66 97.8 F (36.6 C) 70 21 98 % -12/13/18 1100 91/53 - 65 26 96 % -12/13/18 1000 114/63 - 68 20 92 % -0805/03 0900 110/58 - 73 23 91 % -Tmax: Temp (24hrs), Av F (36.7 C), Min:97.7 F (36.5 C), Max:98.8 F(37.1 C)Physical Exam:General: Awake non verbal, coopera tive, no distressMouth/Throat: Dry oral, mucosaNeck: Supple, symmetrical, trachea midline, no adenopathyLungs: Bilateral breath sounds with basal crackles..Heart : Regular rate and rhythm, S1, S2 normal, no murmurAbdomen: Soft, non-tender. Bowel sounds normal. No masses, No organomegaly.+feeding tubeBack: No CVA tenderness.Extremities: Extremities normal, atraumatic, no cyanosis or edema.Pulses: 2+ and symmetric all extremities.Skin: Skin color, texture, turgor normal. No rashes or lesionsCurrent Facility-Administered MedicationsMedication Dose Route Frequen cy 0.9% sodium chloride infusion 100 mL/hr IntraVENous CONTINUOUS piperacillin-cuba obactam (ZOSYN) 3.375 g in 0.9% sodium chloride (MBP/ADV) 100mL MBP 3.375 g In traVENous Q8H budesonide (PULMICORT) 500 mcg/2 ml nebulizer suspension 500 mcg N ebulizationBID RT albuterol-ipratropium (DUO-NEB) 2.5 MG-0.5 MG/3 ML 3 mL Nebul ization Q4H RT ALPRAZolam (XANAX) tablet 0.5 mg 0.5 mg Per G Tube QHS lamoTRIgine ( LaMICtal) tablet 50 mg 50 mg Per G Tube BID valproic acid (as sodium salt) (DEPAKENE ) 250 mg/5 mL (5 mL) oral solution 750mg 750 mg Per G Tube BID cinacalcet (SENSIPAR) tablet 60 mg 60 mg Oral DAILY pantoprazole (PROTONIX) granules for oral suspension 40 mg 40 mg Per G TubeACB heparin (porcine) injection 5,000 Units 5,000 Units SubCU TAneous Q12H acetylcysteine (MUCOMYST) 100 mg/mL (10 %) nebulizer solution 200 mg 2 mLNebulization TID RT methylPREDNISolone (PF) (SOLU-MEDROL) injection 20 mg 20 m g IntraVENous Q12H sodium chloride (NS) flush 5-10 mL 5-10 mL IntraVENous PRNLa bs:Recent Labs 12/14/1903WBC 8.6 8.4 11.0*HGB 10.8* 1 1.2* 13.1*PLT 205 138 191BUN 13 11 12CREA 0.34* 0.42* 0.74SGOT -- -- 19AP -- -- 69TBILI -- -- 0.3Cultures:Lab ResultsComponent Value Date/Time Culture result: NO GROWTH 2 DAYS 12/12/2018 07:40 PM Culture result: NO GROWTH 2 DAYS 2 019 07:40 PM Culture result: NO GROWTH 2 DAYS 11/20/2018 09:00 AMRadiology:Ct Chest Wo ContResult Date: 12/13/2018History: Respiratory difficulty. FINDINGS: CT sca nning of the chest wasperformed helically from the lung apices to the upper abdome n withoutintravenous contrast material. Sagittal and coronal reconstructed image s aresubmitted. Scanning was performed utilizing dose lowering techniques and i scompared to the prior study of 11/08/2018. The study is quite limited by patientpos itioning. Evaluation of thoracic vascular structures is limited withoutintravenous contrast material does not reveal evidence of aneurysmal dilatationor definite CT e vidence of dissection. Coronary artery calcification is seen.There is minimal c alcification of the aortic arch. There is minimalcalcification of the descending t horacic aorta. There is no definite evidence ofany pathologically enlarged lymph node in the visualized portions of themediastinum or axillae. Evaluation of pulmonary pare nchymal structures revealssome atelectatic change in the right upper lobe. There is a small left pleuraleffusion as well as left basilar atelectatic change. There is tamie e patchyopacity within the right middle lobe and right lower lobe which could also be infiltrative in nature. Limited evaluation of upper abdominal structures isunremarkabl e. There is deviation of mediastinal structures to the right. Thiscould be as result of atelectatic change within the right lung. This has beenseen previously and is unchanged.IMPRESSION: Extremely limited study by patient positioning. De viation ofmediastinal structures to the right as has been seen on prior studies. Leftp leural effusion. Bilateral infiltrates and atelectasis, greater on the rightthan th e left.Assessment: Sepsis. Aspiration pneumonia. Acute respiratory failure wi th hypoxia and hypercapnia. Acute COPD exacerbation. Dysphagia. Atelectasis. Plan:1. Continue IV zosyn.2. Follow cultures.MARICEL Beauchampeptember 201 98:29 AM Name Value Range Interpretation Code Description Data [facility] Supporting Document(s ) ID Date Data Source [id number] 12/14/2018 07:47:23 AM EDT [facility] Bedside, Verbal and Written shift change report given to Johann PITTS(oncomingnurse) by DEVYN CELAYA (offgoing nurse). Report incl uded the following informationSBAR, Kardex, Intake/Output, MAR, Accordion, Recent Re sults, Med Rec Status andCardiac Rhythm nsr. Name Value Range Interpretation Code Description Data Harriett rce(s) Supporting Document(s ) ID Date Data Source [id number] 12/14/2018 05:54:38 AM EDT [facility] Name Value Range Interpretation Description Data Sup porting Code Source(s) Document(s ) pH of Arterial 7.38 7.35-7.4 [facility] - Good blood [address] [place] [address] Carbon dioxide 54 mmHg 32-48 Above high normal [facility] - Good [Partial Taoist pressure] in Hospital Arterial blood Oxygen 70 mmHg 83-108 Below low normal [facility] - Good [Partial Taoist pressure] in Hospital Arterial blood Carbon 34 19-24 Above high normal [facility] - Good dioxide, total mmol/L [facility]ist [Moles/volume] Hospital in Arterial blood Bicarbonate 32 21-28 Above high normal [facility] - Go od [Moles/volume] mmol/L [facility] in Arterial Hospital blood Oxygen 97 % 94-98 [facility] - Good saturation in Taoist Blood Hospital Base excess in 5.3 0-3 Above high normal [facility] - Good Arterial blood mmol/L Taoist by calculation Hospital Body site [facility] Good [facility] Arterial [facility] - Good patency Wrist Taoist artery --pre Hospital arterial puncture NASAL O23 Service comment [id number] [facility] - Good [facility] ID Date Data Source [id number] 12/14/2018 07:14:01 AM EDT [facility] Name Value Range Interpretation Description Data Sup porting Code Source(s) Document(s ) Sodium 139 136-145 [facility] - Good [Moles/volume] mmol/L Taoist in Serum or Hospital Plasma Potassium 4.2 3.5-5.1 [facility] - Good [Moles/volume] mmol/L Taoist in Serum or Hospital Plasma Chloride 102 98-107 [facility] - Good [Moles/volume] mmol/L Taoist in Serum or [facility] Plasma Carbon 33 21-32 Above high normal [facility] - [facility] dioxide, total mmol/L [facility] [Moles/volume] Hospital in Serum or Plasma Anion gap in 8 mmol/L 10-20 Below low normal [facility] - Go od Serum or [facility] Plasma Hospital Glucose 84 mg/dL 74-106 [facility] [Mass/volume] [facility] in Serum or Hospital Plasma Urea nitrogen 13 mg/dL 7-18 [facility] - [facility] [Mass/volume] [facility] in Serum or Hospital Plasma Creatinine 0.34 0.70-1.3 Below low normal [facility] - Good [Mass/volume] mg/dL 0 [facility] in Serum or Hospital Plasma Glomerular >60 [facility] - [facility] filtration [facility] rate/1.73 sq M Hospital predicted among blacks [Volume Rate/Area] in Serum or Plasma by Creatinine-bas ed formula (MDRD) Glomerular >60 [facility] - Good filtration [facility] rate/1.73 sq M Hospital predicted among non-blacks [Volume Rate/Area] in Serum or Plasma by Creatinine-bas ed formula (MDRD) Calcium 8.5 8.5-10.1 [facility] - [facility] [Mass/volume] mg/dL [facility] in Serum or Hospital Plasma Phosphate 2.6 2.5-4.9 [facility] - [facility] [Mass/volume] mg/dL [facility] in Serum or Hospital Plasma Albumin 2.0 g/dL 3.5-4.7 Below low normal [facility] [Mass/volume] [facility] in Serum or Hospital Plasma by Bromocresol purple (BCP) dye binding method ID Date Data Source [id number] 12/14/2018 07:14:01 AM EDT [facility] Name Value Range Interpretation Description Data Sup porting Code Source(s) Document(s ) Magnesium 2.0 mg/dL 1.6-2.6 [facility] [Mass/volume] [facility] in Serum or Hospital Plasma ID Date Data Source [id number] 12/14/2018 07:03:46 AM EDT [facility] Name Value Range Interpretation Description Data Sup porting Code Source(s) Document(s ) Leukocytes 8.6 K/uL 4.8-10.6 [facility] - [#/volume] in Good Blood by [facility] Automated count Hospital Erythrocytes 3.29 4.70-6.0 Below low normal [facility] - [#/volume] in M/uL 0 Good Blood by [facility] Automated count Hospital Hemoglobin 10.8 14.0-18. Below low normal [facility] - [Mass/volume] in g/dL 0 [facility] Blood [facility] Hematocrit 32.6 % 42.0-52. Below low normal [facility] - [Volume 0 Good Fraction] of [facility] Blood by Hospital Automated count Erythrocyte mean 99.1 FL 81.0-94. Above high normal [facility] - corpuscular 0 Good volume [Entitic [facility]ist volume] by Hospital Automated count Erythrocyte mean 32.8 PG 27.0-35. [facility] - corpuscular 0 Good hemoglobin [facility] [Entitic mass] Hospital by Automated count Erythrocyte mean 33.1 30.7-37. [facility] - corpuscular g/dL 3 Good hemoglobin [facility] concentration Hospital [Mass/volume] by Automated count Erythrocyte 16.0 % 11.5-14. Above high normal [facility] - distribution 0 Good width [Ratio] by [facility] Automated count Hospital Platelets 205 K/uL 130-400 [facility] - [#/volume] in Good Blood by [facility] Automated count [facility] Platelet mean 9.6 FL 9.2-11.8 [facility] - volume [Entitic Good volume] in Blood [facility] by Automated Hospital count Segmented 85 % 48.0-72. Above high normal [facility] - neutrophils/100 0 Good leukocytes in [facility] Lymphocytes/100 11 % 18.0-40. Below low normal [facility] - leukocytes in 0 [facility] Blood [facility] Monocytes/100 4 % 2.0-12.0 [facility] - leukocytes in [facility] Blood [facility] Eosinophils/100 0 % 0.0-7.0 [facility] - leukocytes in [facility] Blood [facility] Basophils/100 0 % 0.0-3.0 [facility] - leukocytes in [facility] Blood [facility] Segmented 7.3 K/UL 1.5-6.6 Above high normal [facility] - neutrophils Good [#/volume] in [facility] Lymphocytes 0.9 K/UL 1.5-3.5 Below low normal [facility] - [#/volume] in [facility] Monocytes 0.3 K/UL 0.0-1.0 [facility] - [#/volume] in [facility] Eosinophils 0.0 K/UL 0.0-0.7 [facility] - [#/volume] in [facility] Basophils 0.0 K/UL 0.0-0.1 [facility] - [#/volume] in [facility] Differential [facility] - cell count [facility] Immature 1 % 0.0-2.0 [facility] - granulocytes/100 [facility] leukocytes in [facility] Automated count ID Date Data Source [id number] 12/13/2018 07:06:38 PM EDT [facility] Bedside and Verbal shift change report g iven to Devyn Celaya RN (oncoming nurse)by Kathia Guardado RN (offgoing nurse). Repo rt included the following information SBAR, Kardex,Intake/Output, Recent Results, Me d Rec Status and Cardiac Rhythm NSR. Name Value Range Interpretation Code Description Data Harriett rce(s) Supporting Document(s ) ID Date Data Source [id number] 12/13/2018 06:47:48 PM EDT [facility] History:Respiratory difficulty.FINDINGS: CT scanning of the chest was performed helically from the lung apices to theupp er abdomen without intravenous contrast material. Sagittal and coronalreconstruc mikel images are submitted. Scanning was performed utilizing doselowering [employer] and is compared to the prior study of 11/08/2018.The study is quite limited by patient positioning.Evaluation of thoracic vascular structures is limited without i ntravenouscontrast material does not reveal evidence of aneurysmal dilatation ordefi niteCT evidence of dissection. Coronary artery calcification is seen. There ismi nimal calcification of the aortic arch. There is minimal calcification ofthedescending thoracic aorta.There is no definite evidence of any pathologically enlarged lymph nod e in thevisualized portions of the mediastinum or axillae.Evaluation of pul monary parenchymal structures reveals some atelectatic changein the right upper lob e. There is a small left pleural effusion as well asleftbasilar atelectatic change. T here is some patchy opacity within the rightmiddlelobe and right lower lobe whi ch could also be infiltrative in nature.Limited evaluation of upper abdom inal structures is unremarkable.There is deviation of mediastinal structures to t he right. This could be asresult of atelectatic change within the right lung . This has been seenpreviously and is unchanged.IMPRESSION:Extremely limited s tudy by patient positioning.Deviation of mediastinal structures to the right as h as been seen on priorstudies.Left pleural effusion.Bilateral infiltrates and atele ctasis, greater on the right than the left.Signing date/time: 12/13/2018 6:47 PMSigned by: SAMIR RENTERIA Name Value Range Interpretation Code Description Data Harriett rce(s) Supporting Document(s ) ID Date Data Source [id number] 12/13/2018 01:07:19 PM EDT [facility] PULMONARY/ CCM- Consult NotePatient: Ivelisse Carlin Sex: male DOA: 12/12/2018Date of : 1 Age: 68 y.o. LOS: LOS: 1 dayHPI: Emil Carlin is a 68 y. o. male who has been seen for respfailure.pneumonia,recently discharge d..Patient with MR,aspiration pneumonia,dysphagia,s/p peg placement,CO PD,pulmonaryembolism,schizophrenia was transferred from the long-term for fe [id number],shortness of breath and tachycardia.Patient is non verbal,unable toprovide history.History obtained from chart review.He was started on IVcefepim e,solumedrol and given a dose of IV vancomycin as per records from [place].Hewas afebrile on arrival to the ER with elevated lactic acid of 5.3 withrespiratory distr ess.course reviewed.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 Authorizing Providerpantopr azole (PROTONIX) 40 mg granules for oral suspension 40 mg by Per G Tuberoute Kyleigh y (before breakfast). 11/28/18 Yes Mili Hills DObudesonide (PULMICORT) 0.5 mg /2 mL nbsp 2 mL by Nebulization route two (2) timesa day for 30 days. 11/27/18 12/27/18 Yes Mili Hills, DOmultivitamin (ONE A DAY) tablet Take 1 Tab by mouth daily. Yes Provider,Historicalclorazepate (TRANXENE) 3.75 mg tablet Take by mouth nightly. Yes Provider,Historicalalbuterol-ipratropium (DUO-NEB) 2.5 mg-0.5 mg/3 ml nebu 3 mL by Nebulizationroute every six (6) hours as needed. Yes Provider, HistoricallamoTRIgine (LAMICTAL) 25 mg t ablet Take 50 mg by mouth two (2) times a day.Yes Provider, Historicalcinacalcet ( SENSIPAR) 30 mg tablet Take 60 mg by mouth daily. Yes Provider,Historicalvalproat e (DEPAKENE) 250 mg/5 mL syrup Take 750 mg by mouth two (2) times a day.Yes Provider, HistoricalNo Known AllergiesHistory reviewed. No pertinent surgical history.History re viewed. No pertinent family history.Social HistorySocioeconomic History Marital st atus: SINGLE Spouse name: Not on file Number of children: Not on file Years o f education: Not on file Highest education level: Not on fileTobacco Use Smoking s tatus: Never Smoker Smokeless tobacco: Never UsedSubstance and Sexual Activity Alcoh ol use: No Drug use: NoReview of SystemsPertinent items are noted in the History of Present Illness.Physical Exam:Current medications:Current Facilit y-Administered Medications: 0.9% sodium chloride infusion, 100 mL/hr, IntraVENou s, CONTINUOUS, Mili Hills DO, Last Rate: 100 mL/hr at 12/13/18 0231, 100 mL/hr at 12/13/18 0231 piperacillin-tazobactam (ZOSYN) 3.375 g in 0.9% sodium chloride (MBP/ADV) 100mL MBP, 3.375 g, IntraVENous, Q8H, Reinier, Mili, DO, Last Rate: 25 mL/hr at12/13/18 0451, 3.375 g at 12/13/18 0451 budesonide (PULMICORT) 500 mcg/2 ml nebulizer suspension, 500 mcg,Nebulization, BID RT, Cesar Hills DO, 500 mcg at 12/13/18 0808 albuterol-ipratropium (DUO-NEB) 2.5 MG-0 .5 MG/3 ML, 3 mL, Nebulization, Q4HRT, Mili Hills DO, 3 mL at 12/13/18 11 41 ALPRAZolam (XANAX) tablet 0.5 mg, 0.5 mg, Per G Tube, QHS, Mili Hills DO lamoTRIgine (LaMICtal) tablet 50 mg, 50 mg, Per G Tube, BID, Mili Hills DO, 50 mg at 12/13/18 0914 valproic acid (as sodium salt) (DEPAKENE) 250 mg/5 mL (5 m L) oral [id number] mg, 750 mg, Per G Tube, BID, Mili Hills DO, 750 mg at 11/15 05/03 0914 cinacalcet (SENSIPAR) tablet 60 mg, 60 mg, Oral, DAILY, Mili Hills DO,60 mg at 12/13/18 0914 pantoprazole (PROTONIX) granules for oral suspension 40 mg, 40 mg, Per GTube, ACB, Mili Hills DO, 40 mg at 12/13/18 0814 he lili (porcine) injection 5,000 Units, 5,000 Units, SubCUTAneous, Q12H,Cesar Hills DO sodium chloride (NS) flush 5-10 mL, 5-10 mL, IntraVENous, PRN, Raysa Romero, MDDataVisit VitalsBP 120/66Pulse 70Temp 97.4 F (36.3 C)Resp 21Ht 5' 2" (1.575 m)Wt 53.1 kg (117 lb)SpO2 98%BMI 21.40 kg/m Intake and Output:Date 12/12/18 0700 - 0 12/13/1859 12/13/18 0700 - 12/14/18 0659ift [id number] 24 Hour To krystian [phone] [id number] 24 Hour TotalINTAKEI.V. 248.3(0.4) 248.3(0.2) Volume (0.9% sodium chloride infusion) 48.3 48.3 Volume (sodium chloride 0.9 % bolu s infusion 593 mL) 0 0 Volume (piperacillin-tazobactam (ZOSYN) 3.375 g in 0.9% sodium chloride(MBP/ADV) 100 mL MBP) 100 100 Volume (piperacillin-tazobacta m (ZOSYN) 3.375 g in 0.9% sodium chloride(MBP/ADV) 100 mL MBP) 100 100Sh ift Total(mL/kg) 248.3(4.7) 248.3(4.7)OUTPUTUrine 350(0.5) 350(0.3) Urine 350 350 Urine Occurrence(s) 1 x 1 xShift Total(mL/kg) 350(6.6) 350(6.6)NE T -101.7 -101.7Weight (kg) 53.1 53.1 53.1 53.1 53.1Pulse OX:SpO2 Readings from [place] Encounters:12/13/18 98%11/27/18 91%09/26/15 96%@LASTSAO2(6)@PHYSICAL EXA M:General: Lethargic,responding.Head: Normocephalic, without obvious abnormali ty, atraumatic.Eyes: Conjunctivae clear, anicteric sclerae. Pupils are equalNose : Nares normal. No drainage or sinus tenderness.Throat: Lips, mucosa, and tongue normal. No ThrushNeck: Supple, symmetrical, no adenopathy, thyroid: no n tender no carotid bruit and no JVD.Back: Symmetric, No CVA tenderness.Lungs: Scattered rhonchi,Chest wall: No tenderness or deformity. No Accessory muscle use.He art: Regular rate and rhythm, no murmur, rub or gallop.Abdomen: Soft, non-tende r. Not distended. Bowel sounds normal. No massesExtremities: Extremities normal, a traumatic, No cyanosis. No edema. No clubbingSkin: Texture, turgor normal . No rashes or lesions. Not JaundicedLymph nodes: Cervical, supraclavicular normal. Neurologic: Lethargic.Most recent labs:Recent Labs 12/12/1918WBC 8.4 1 1.0*HGB 11.2* 13.1*HCT 33.7* 38.6*PLT 138 191Recent Labs 12/13/1919 7 NA 136 -- 132*K 4.3 -- 4.2CL 100 -- 92*CO2 30 36* 34*GLU 134* -- 155*BUN 11 -- 12CREA 0.42* -- 0.74CA 8.4* -- 9.4MG 1.9 -- --PHOS 2.4* -- --ALB 2.0* -- 2.0*TBILI -- -- 0.3SGOT -- -- 19ALT -- -- 13INR -- -- 1.1Recent Labs PH 7.40PCO2 55*PO2 56*HCO3 34*ABG:Recent La bs PH 7.40PCO2 55*PO2 56*HCO3 34*Cultures:No results found for: SDESLa b ResultsComponent Value Date/Time Culture result: NO GROWTH AFTER 9 HOURS 12/13/19 07:40 PM Culture result: NO GROWTH AFTER 9 HOURS 12/12/2018 07:40 PM Culture result : NO GROWTH 2 DAYS 11/20/2018 09:00 AM Culture result: NO GROWTH 5 DAYS 019 08:10 PM Culture result: NO GROWTH 5 DAYS 11/07/2018 08:00 PMImages:Cta Chest W Or W Wo ContResult Date: 11/08/2018Examination: CTA Chest ? PE angiography History: Hypo magdy; rule out pneumoniaversus pulmonary embolism Priors: None Technique: Low-d ose, multiplanar,helical CTA chest was performed with bolus IV injection from lung apices tobases. 3D-reformatted images were obtained and reviewed on a [employer] d viewingworkstation and directly supervised. Contrast: A total of 71 mL of Isovue-370 was administered intravenously for this procedure. Findings: No evidence ofpulmo nary embolism is seen. There is decreased size of the right hemithorax fromchronic scarring and retraction with mediastinal shift left to right.Additional area of c onsolidation is seen in the right lower lobe and suggestssuperimposed pneumonia with subsegmental atelectasis. Subsegmental atelectasisis also noted in the left jorge g base, with pleural parenchymal scarring. Lowlung volumes are seen. No pneumothora x seen. Aorta normal in caliber withoutaneurysm or dissection. Mediastin um no adenopathy. Mediastinal shift is seen inthe left and right as a result of chr onic changes in the right hemithorax.Heart shows no chamber enlargement or pericard ial effusion. No acute fracturesseen in the bony thorax, sternum, manubrium and rib cage. Multiple compressiondeformities are seen in the mid and lower thoracic spine , with superimposedspondyloarthropathy. Cannot exclude acute fracture.Impression : No evidence of pulmonary embolism Right lower lobe pneumoniasuggested. Incidenta l scarring and retraction in the right hemithorax fromremote/chronic inflammato ry disease and/or trauma. Bibasilar subsegmentalatelectasis. Report Electron ically Signed By: Pawel Zafar M.D. -11/08/2018 12:40 AMXr Chest PortResult D ate: 11/07/2018XR CHEST PORT CLINICAL INDICATION PROVIDED:. "sob." COMPARISON: . 09/26/2015.FINDINGS:. The pericardial/cardiac silhouette is enlarg ed in the transversedimension. There is no pulmonary vascular congestion or interst itial edema.Linear density in the left lung base and faint densities in the right mi d tolower lung likely represent atelectasis. There is no lobar consolidation oreffusi on. There is no pneumothorax.IMPRESSION:. Bilateral lower lung atelectasis. No donna dence of consolidation oreffusion.Assessment/PlanActive Problem s: Pneumonia (11/08/2018) Sepsis due to undetermined organism (HCC) (12/12/2018) Acute resp failure combined, pneumonia acute copd exacerbationPLAN,Monitoring,bipap p rn for resp distressIvabx as per id,Iv steroidsbipap prn and at night.NebS/p pe g,feeding started.D/w nursing staff.Pantera Munson 2018The billing code submitted in association with this evaluation also includes thetime to review patient' s prior records, communicate with the physician team,obtain corroborating data , and discuss the risk and benefits of the proposedmanagement plan with the patient and their family >45 minutes. Name Value Range Interpretation Code Description Data Harriett rce(s) Supporting Document(s ) ID Date Data Source [id number] 12/13/2018 09:47:44 AM EDT [facility] Infectious Disease ConsultToday's Date: 12/13/2018Admit Date: 12/12/2018Subjective:Date of Consultation: December 13, 2018Refbrandon oro Physician: ReinierJustice is a 68 y.o. male who is being seen for pneumonia.Pat ient withMR,aspiration pneumonia,dysphagia,s/p peg placement,CO PD,pulmonaryembolism,schizophrenia was transferred from the long-term for fe [id number],shortness of breath and tachycardia.Patient is non verbal,unable toprovide history.History obtained from chart review.He was started on IVcefepim e,solumedrol and given a dose of IV vancomycin as per records from [place].Hewas afebrile on arrival to the ER with elevated lactic acid of 5.3 with lowoxygen and el evated CO2 level.Patient Active Problem ListDiagnosis Code Paraesophageal hiata l hernia K44.9 COPD (chronic obstructive pulmonary disease) ([facility]) J44.9 Acute re spiratory distress R06.03 Pneumonia J18.9 COPD exacerbation ([facility]) J44.1 Sepsis du e to undetermined organism ([facility]) A41.9Past Medical History:Diagnosis Date Chronic obstructive pulmonary disease (HCC) GERD (gastroesophageal reflux disease) Hyper parathyroidism ([facility]) Mental retardation Parkinsonism due to drug ([facility]) Pneumoni a Psychiatric disorder Pulmonary emboli (HCC) Schizophrenia ([facility])History review ed. No pertinent family history.Social HistoryTobacco Use Smoking status: Nilo uribe Smoker Smokeless tobacco: Never UsedSubstance Use Topics Alcohol use: N oHistory reviewed. No pertinent surgical history.Prior to Admission medicationsMe dication Sig Start Date End Date Taking? Authorizing Providerpantoprazole (PROTON IX) 40 mg granules for oral suspension 40 mg by Per G Tuberoute Daily (before st). 11/28/18 Yes Mili Hills DObudesonide (PULMICORT) 0.5 mg/2 mL nbs p 2 mL by Nebulization route two (2) timesa day for 30 days. 11/27/18 12/27/18 Yes Saadia son, Mili, DOmultivitamin (ONE A DAY) tablet Take 1 Tab by mouth daily. Yes Provider,Historicalclorazepate (TRANXENE) 3.75 mg tablet Take by mouth nightly. Yes Provider,Historicalalbuterol-ipratropium (DUO-NEB) 2.5 mg-0.5 mg/3 ml nebu 3 mL b y Nebulizationroute every six (6) hours as needed. Yes Provider, HistoricallamoTR Igine (LAMICTAL) 25 mg tablet Take 50 mg by mouth two (2) times a day.Yes Provider, Historicalcinacalcet (SENSIPAR) 30 mg tablet Take 60 mg by mouth daily. Yes Provide r,Historicalvalproate (DEPAKENE) 250 mg/5 mL syrup Take 750 mg by mouth two (2) times a day.Yes Provider, HistoricalNo Known AllergiesReview of SystemsPatient is maria isabel ble to provide.Objective:Visit VitalsBP 105/67Pulse 70Temp 97.4 F (36.3 C)Resp 24Ht 5' 2" (1.575 m)Wt 53.1 kg (117 lb)SpO2 93%BMI 21.40 kg/m Temp (24hrs), Av.6 F (36.4 C), Min:97.2 F (36.2 C), Max:98 F (36.7 C)Lines: Peripheral IV:Physica l Exam:General: Awake non verbal,cooperative, no distress, appears stated age.Eyes: Conjunctivae/corneas clear. PERRLMouth/Throat: Dry oral mucos aNeck: Supple, symmetrical, trachea midline, no adenopathy.Lungs: Bilateral breath sounds with basal crackles..Heart: Regular rate and rhythm, S1, S2 normal, no murmu rAbdomen: Soft, non-tender. Bowel sounds normal. No masses, Noorganomegaly.surgi inez wound healed,feeding tube.Back: No CVA tenderness.Extremities: Extremities norm al, atraumatic, no cyanosis or edema.Pulses: 2+ and symmetric all extremities.Skin: S kin color, texture, turgor normal. No rashes or lesionsLymph nodes: Cervical, supracl avicular, and axillary nodes normal.Neurologic: Awake non verbal,movi ng all ext..Data Review:Labs:Recent Results (from the past 24 hour(s))EKG, 12 LEAD, INITIAL Collection Time: 12/12/18 7:13 PMResult Value Ref Range Ventricular Rat e 82 BPM Atrial Rate 81 BPM P-R Interval 122 ms QRS Duration 132 ms Q-T Interval 436 ms QTC Calculation (Bezet) 509 ms Calculated P [place] 62 degrees Calculated R [place] 65 d egrees Calculated T [place] 66 degrees Diagnosis Sinus rhythmIVCD, consider atypical RBB BProbable inferior infarct, acuteLateral leads are also involvedGLUCOSE, POC Manuel ection Time: 12/12/18 7:20 PMResult Value Ref Range Glucose, bedside 195 (H) 65 - 110 MG/DLCULTURE, BLOOD Collection Time: 12/12/18 7:40 PMResult Value Ref Range Special Requests: NO SPECIAL REQUESTS Culture result: NO GROWTH AFTER 9 HOURSLACTIC AC ID Collection Time: 12/12/18 7:40 PMResult Value Ref Range Lactic acid 5.5 (HH) 0.4 - 2.0 MMOL/LCULTURE, BLOOD Collection Time: 12/12/18 7:40 PMResult Value Ref Range Special Requests: NO SPECIAL REQUESTS Culture result: NO GROWTH AFTER 9 HOURSMETABOLIC PANEL, COMPREHENSIVE Collection Time: 12/12/18 7:40 PMResult Value Ref Range Sodium 132 (L) 136 - 145 mmol/L Potassium 4.2 3.5 - 5.1 mmol/L Chloride 92 (L) 98 - 10 7 mmol/L CO2 34 (H) 21 - 32 mmol/L Anion gap 10 10 - 20 mmol/L Glucose 155 (H) 74 - 1 06 mg/dL BUN 12 7 - 18 mg/dL Creatinine 0.74 0.70 - 1.30 mg/dL GFR est AA >60 >60 ml/ min/1.73m2 GFR est non-AA >60 >60 ml/min/1.73m2 Calcium 9.4 8.5 - 10.1 mg/ dL Bilirubin, total 0.3 0.2 - 1.0 mg/dL ALT (SGPT) 13 13 - 61 U/L AST (SGOT) 19 15 - 37 U/L Alk. phosphatase 69 45 - 117 U/L Protein, total 6.7 6.4 - 8.2 g/dL Albumi n 2.0 (L) 3.5 - 4.7 g/dL Globulin 4.7 1.7 - 4.7 g/dL A-G Ratio 0.4 (L) 0.7 - 2.8CBC WITH AUTOMATED DIFF Collection Time: 12/12/18 7:40 PMResult Value Ref Range WBC 11.0 (H) 4.8 - 10.6 K/uL RBC 3.93 (L) 4.70 - 6.00 M/uL HGB 13.1 (L) 14.0 - 18.0 g/dL HCT 3 8.6 (L) 42.0 - 52.0 % MCV 98.2 (H) 81.0 - 94.0 FL MCH 33.3 27.0 - 35.0 PG MCHC 33. 9 30.7 - 37.3 g/dL RDW 15.1 (H) 11.5 - 14.0 % PLATELET 191 130 - 400 K/uL MPV 9.6 9.2 - 11.8 FL NEUTROPHILS 88 (H) 48.0 - 72.0 % LYMPHOCYTES 7 (L) 18.0 - 40.0 % MONOCYTE S 5 2.0 - 12.0 % EOSINOPHILS 0 0.0 - 7.0 % BASOPHILS 0 0.0 - 3.0 % ABS. NEUTROPHILS 9.5 (H) 1.5 - 6.6 K/UL ABS. LYMPHOCYTES 0.8 (L) 1.5 - 3.5 K/UL ABS. MONOCYTES 0.6 0. 0 - 1.0 K/UL ABS. EOSINOPHILS 0.0 0.0 - 0.7 K/UL ABS. BASOPHILS 0.0 0.0 - 0.1 K/UL D F AUTOMATED IMMATURE GRANULOCYTES 1 0.0 - 2.0 %TROPONIN I Collection Time: 12/12/18 7 :40 PMResult Value Ref Range Troponin-I, Qt. <0.02 0.00 - 0.05 NG/MLCK Collection Patria e: 12/12/18 7:40 PMResult Value Ref Range CK 53 39 - 308 U/LBNP Collection Time: 11/15 7:40 PMResult Value Ref Range BNP 87 0 - 100 pg/mLPTT Collection Time: 12/12/18 7:40 PMResult Value Ref Range aPTT 28.8 (H) 21.0 - 28.0 SECPROTHROMBIN TIME + INR Co llection Time: 12/12/18 7:40 PMResult Value Ref Range Prothrombin time 11.2 (H) 9.4 - 11.1 sec INR 1.1 0.8 - 1.2URINALYSIS W/ RFLX MICROSCOPIC Collection Time: 8:04 PMResult Value Ref Range Color DARK YELLOW (A) YEL Appearance CLEAR CLEAR Sp ecific gravity 1.035 (H) 1.003 - 1.030 pH (UA) 6.5 4.6 - 8.0 Protein 30 (A) NEG mg /dL Glucose NEGATIVE NEG mg/dL Ketone 5 (A) NEG mg/dL Bilirubin NEGATIVE NEG Blood NEGATIVE NEG Urobilinogen 0.2 0.2 - 1.0 EU/dL Nitrites NEGATIVE NEG Leukocyte E sterase TRACE (A) NEG WBC 5-10 0 - 5 /hpf RBC 3-5 0 - 3 /hpf Epithelial cells 0-3 0 - 10 /hpf Bacteria NONE NONE /hpf Casts 5-10 (A) NONE /lpf Crystals, urine NONE NONE /LPFBLOOD GAS, ARTERIAL Collection Time: 12/12/18 8:07 PMResult Value Ref Range pH 7.40 7.35 - 7.45 PCO2 55 (H) 32 - 48 mmHg PO2 56 (L) 83 - 108 mmHg CO2, TOTAL 36 ( H) 19 - 24 mmol/L BICARBONATE 34 (H) 21 - 28 mmol/L O2 SAT 90 (L) 94 - 98 % BASE EXCE SS 7.5 (H) 0 - 3 mmol/L SITE LEFT RADIAL MIRANDA'S TEST POSITIVE DEVICE NASAL O2 O2 FLOW 2 L/min Performed by [id number] ACID Collection Time: 12/13/18 12:30 AMResult Value Ref Range Lactic acid 5.3 (HH) 0.4 - 2.0 MMOL/LRENAL FUNCTION PANEL Collectio n Time: 12/13/18 4:24 AMResult Value Ref Range Sodium 136 136 - 145 mmol/L Potass ium 4.3 3.5 - 5.1 mmol/L Chloride 100 98 - 107 mmol/L CO2 30 21 - 32 mmol/L Anion g ap 10 10 - 20 mmol/L Glucose 134 (H) 74 - 106 mg/dL BUN 11 7 - 18 mg/dL Creatinine 0.4 2 (L) 0.70 - 1.30 mg/dL GFR est AA >60 >60 ml/min/1.73m2 GFR est non-AA >60 >60 ml/ min/1.73m2 Calcium 8.4 (L) 8.5 - 10.1 mg/dL Phosphorus 2.4 (L) 2.5 - 4.9 mg/dL Album in 2.0 (L) 3.5 - 4.7 g/dLMAGNESIUM Collection Time: 12/13/18 4:24 AMResult Value Ref Range Magnesium 1.9 1.6 - 2.6 mg/dLCBC WITH AUTOMATED DIFF Collection Time: 12/13/18 4:24 AMResult Value Ref Range WBC 8.4 4.8 - 10.6 K/uL RBC 3.39 (L) 4.70 - 6.00 M/uL HGB 11.2 (L) 14.0 - 18.0 g/dL HCT 33.7 (L) 42.0 - 52.0 % MCV 99.4 (H) 81.0 - 94.0 F L MCH 33.0 27.0 - 35.0 PG MCHC 33.2 30.7 - 37.3 g/dL RDW 15.4 (H) 11.5 - 14.0 % JOCELYN TELET 138 130 - 400 K/uL MPV 9.1 (L) 9.2 - 11.8 FL NEUTROPHILS 85 (H) 48.0 - 72.0 % LYMPHOCYTES 10 (L) 18.0 - 40.0 % MONOCYTES 5 2.0 - 12.0 % EOSINOPHILS 0 0.0 - 7.0 % B ASOPHILS 0 0.0 - 3.0 % ABS. NEUTROPHILS 7.2 (H) 1.5 - 6.6 K/UL ABS. LYMPHOCYTES 0.8 (L) 1.5 - 3.5 K/UL ABS. MONOCYTES 0.4 0.0 - 1.0 K/UL ABS. EOSINOPHILS 0.0 0.0 - 0.7 K/UL ABS. BASOPHILS 0.0 0.0 - 0.1 K/UL DF AUTOMATED IMMATURE GRANULOCYTES 1 0.0 - 2.0 %LACTIC ACID Collection Time: 12/13/18 4:24 AMResult Value Ref Range Lactic aci d 2.1 (HH) 0.4 - 2.0 MMOL/LMicrobiology:Cultures:Lab ResultsC omponent Value Date/Time Culture result: NO GROWTH AFTER 9 HOURS 12/12/2018 07:40 PM Culture result: NO GROWTH AFTER 9 HOURS 12/12/2018 07:40 PM Culture result: NO G ROWTH 2 DAYS 11/20/2018 09:00 AMImaging:Xr Chest Sngl VResult Date: 11/25/2018AP por table film of the chest clinical indication pneumonia Study is compared toprevious e xamination of November 22, 2018. Study demonstrates a left pleuraleffusion as w ell as infiltrate at the left base. This was present on previousstudy. There has been interval development of a small right pleural effusionwith linear streaking at the right base this may represent infiltrate oratelectasis. Heart size difficult to e valuate.IMPRESSION: Infiltrate left base with pleural effusion, right pleural effusion with streaking at right lower lung field which may represent infiltrate oratelect asisXr Chest Sngl VResult Date: 11/22/2018History: PNEUMONIA Technique: P ortable chest x-ray 11/22/2018 8:03 AM Comparison:11/21/2018. FINDINGS: The exam is rotated. There is a small left pleural effusionwith probable infiltrate or atel ectasis. There is improved aeration of the rightlung since the prior. Evaluation of the cardiac silhouette is limited byprojection. The visualized osseous str uctures appear unremarkable.IMPRESSION: There is a small left pleural effusion with pr obable infiltrate oratelectasis. There is improved aeration of the right lung sinc e the prior.Xr Abd (kub)Result Date: 11/22/2018EXAM: XR ABD (KUB) INDICATION: ileus COMPARISON: None. FINDINGS: A supineradiograph of the abdomen shows a normal bowel gas pattern. No soft tissuemasses or pathologic calcification s are identified. The bones and soft tissuesare within normal limits. There i s moderate fecal material overlying the pelvis.There are skin kalpana along the midline.IMPRESSION: No dilated loops of bowel are identified to suggest obstruction.Xr Abd (kub)Result Date: 11/19/2018XR ABD (KUB)-SINGLE VIEW PRIOR: None HISTORY: E valuate for G-tube placementFINDINGS: The examination is limited-the pt is in an R AO/LPO position. A tubeoverlies the abdomen extending from the right lower quadrant to the left upperquadrant and whether this represents a gastric tube cannot be defi nitivelydetermined. The bowel gas pattern is nonspecific. No abnormally dilated loop ofbowel, bowel wall thickening, pneumatosis or free air is identified. No abnormalde nsities or calcifications are identified. There are midline surgical skinstaples i dentified. The visualized osseous structures are unremarkable.IMPRESSION: 1. Tube ov erlying the abdomen terminating in the region of stomach;as described and discussed ab ove on this single oblique view the exact locationof this tube cannot be determine d. 2. Otherwise unremarkable abdomen/KUB.Cta Chest W Or W Wo ContResult Date: 11/09/19 19Examination: CTA Chest ? PE angiography History: Hypoxia; rule out pneumoniavers us pulmonary embolism Priors: None Technique: Low-dose, multiplanar,helica l CTA chest was performed with bolus IV injection from lung apices tobases. 3D- reformatted images were obtained and reviewed on a dedicated viewingworkstation and di rectly supervised. Contrast: A total of 71 mL of Isovue-370was administered intravenou sly for this procedure. Findings: No evidence ofpulmonary embolism is seen. T here is decreased size of the right hemithorax fromchronic scarring and retr action with mediastinal shift left to right.Additional area of consolidation i s seen in the right lower lobe and suggestssuperimposed pneumonia with subs egmental atelectasis. Subsegmental atelectasisis also noted in the left jorge g base, with pleural parenchymal scarring. Lowlung volumes are seen. No pneumothora x seen. Aorta normal in caliber withoutaneurysm or dissection. Mediastin um no adenopathy. Mediastinal shift is seen inthe left and right as a result of chr onic changes in the right hemithorax.Heart shows no chamber enlargement or pericard ial effusion. No acute fracturesseen in the bony thorax, sternum, manubrium and rib cage. Multiple compressiondeformities are seen in the mid and lower thoracic spine , with superimposedspondyloarthropathy. Cannot exclude acute fracture.Impression : No evidence of pulmonary embolism Right lower lobe pneumoniasuggested. Incidenta l scarring and retraction in the right hemithorax fromremote/chronic inflammato ry disease and/or trauma. Bibasilar subsegmentalatelectasis. Report Electron ically Signed By: Pawel Zafar M.D. -11/08/2018 12:40 AMXr Chest PortResult D ate: 12/13/2018History: Respiratory difficulty. FINDINGS: A frontal portable view of the chestis compared to the prior study from earlier in the same day. EKG leads overliethe chest. The cardiac silhouette is normal in size. The left l eunice is clear. Theright lung is poorly evaluated due to significant rotation. T he possibility ofright basilar infiltrate or atelectatic change cannot be excluded. M ediastinaland hilar structures are poorly evaluated as well.IMPRESSION: Study quit e limited due to rotation. Opacity at the right lung basemay be infiltrative or at electatic in nature.Xr Chest PortResult Date: 12/12/2018History: Fever. Lethargy. FINDI NGS: 2 frontal views of the chest are compared tothe prior study of 11/25/2018. EKG leads overlie the chest. The cardiacsilhouette is normal in size. The re may be some streaky changes at the lungbases. Evaluation of the lungs and m ediastinal structures is quite limited dueto rotation.IMPRESSION: Study quite limited by rotation. Basilar streaks noted.Xr Chest PortResult Date: 11/21/2018AP portable yoshi m of the chest clinical indication pneumonia Study is compared toprevious examination of November 19, 2018. There has been partial clearing ofstreaky changes seen at the r ight base. There has been interval development ofsome haziness at the left base as well as elevation of the left leaf of thediaphragm. Heart size is difficult to evaluate.IMPRESSION: 1. Partial clearing of streaks at right base. 2. Haziness at le ftbase which may represent infiltrateXr Chest PortResult Date: 11/19/2018History: Respir atory difficulty. FINDINGS: A frontal portable view of the chestis compared to the prior study of 11/07/2016. A large gas-filled structure isnoted beneath the left diaphragm, unchanged, likely representing the stomach.The cardiac tyrell houette is normal in size. There is again noted to be shift ofmediastinal structur es to the right. There are some streaky and patchy changesat the right lung base not seen on the prior study and the possibility ofinfiltrative change cannot be excluded . A few nonspecific left basilar streaksare noted as well. Prominence of the right h ilum is unchanged and may merely carlos enrique a result of the shift of mediastinal struc tures.IMPRESSION: New patchy opacity at the right lung base may be infiltrative orat electatic in nature. Few left basilar streaks are noted as well. Otherwisefindings sim ilar.Xr Chest PortResult Date: 11/07/2018XR CHEST PORT CLINICAL INDICATION PROVIDED: . "sob." COMPARISON:. 09/26/2015.FINDINGS:. The pericardial/cardiac silhouette is en larged in the transversedimension. There is no pulmonary vascular congestion or inte rstitial edema.Linear density in the left lung base and faint densities in the rig ht mid tolower lung likely represent atelectasis. There is no lobar consolida tion oreffusion. There is no pneumothorax.IMPRESSION:. Bilateral lowe r lung atelectasis. No evidence of consolidation oreffusion.Xr Abd Port 1 VResult Date: 11/21/2018Abdomen 2 views clinical indication ileus Study is jose red to previousexamination of November 20, 2018. There has been an interval decrease in b oweldistention. Increased stool is noted in the rectal region. Skin clips are againn oted.IMPRESSION: 1. Interval decrease in bowel distention. 2. Increased stool inr ectal regionXr Abd Port 1 VResult Date: 11/20/2018KUB one view(s) History: Ileus. Comparison: Yesterday. There is diffuse ileusof the small and large bowel which has increased involving the small bowel. Airand fecal material is noted in the re ctosigmoid colon. The cecum appears to bein the right hemiabdomen but is otherwise u nchanged. There is no evidence ofobstruction, radiopaque gallstones, or kidney stones. The previously noted tubeoverlying the abdomen is no longer seen.IMPRESSION: In crease of small bowel ileus.Impression: Sepsis. Aspiration pneumonia. Acute re spiratory failure with hypoxia and hypercapnia. Acute COPD exacerbation. Dysphagia. Atelectasis.Plan: continue IV zosyn. Follow culture. Follow Ct scan of chest.Signed By: Natasha Dudley MD December 13, 2018 9:12 AM Name Value Range Interpretation Code Description Data [facility] rce(s) Supporting Document(s ) ID Date Data Source [id number] 12/13/2018 07:50:37 AM EDT [facility] Bedside, Verbal and Written shift change report given to kathia pitts(oncomingnurse) by DEVYN CELAYA (offgoing nurse). Report i ncluded the following informationSBAR, Kardex, Intake/Output, MAR, Accordion, R ecent Results, Med Rec Status andCardiac Rhythm nsr . Name Value Range Interpretation Code Description Data [facility] ) ID Date Data Source [id number] 12/13/2018 07:45:49 AM EDT [facility] History:Respiratory difficulty.FINDINGS: A frontal portable view of the chest is compared to the prior study [facility] the same day.EKG leads overlie the chest.The cardiac silhouette is normal i n size. The left lung is clear. The rightlungis poorly evaluated due to sign ificant rotation. The possibility of rightbasilar infiltrate or atelectatic c hange cannot be excluded. Mediastinal andhilar structures are poorly evaluated as well.IMPRESSION: Study quite limited due to rotation. Opacity at the right lung b ase may beinfiltrative or atelectatic in nature.Signing date/time: 12/13/2018 7:4 5 AMSigned by: SAMIR RENTERIA Name Value Range Interpretation Code Description Data [facility] Supporting [facility]s ) ID Date Data Source [id number] 12/13/2018 07:05:06 AM EDT [facility] Patient condition updated with DR Hills , new orders received and startedstarted. Name Value Range Interpretation Code Description Data [facility] Supporting Document(s ) ID Date Data Source [id number] 12/13/2018 07:03:24 AM EDT [facility] TRANSFER - IN REPORT:Verbal report recei nathaly from gregory pitts (name) on Evelio Carlin being receivedfrom ED(unit) for routine progression of careReport consisted of patient's Situation, Background, Assessm ent andRecommendations(SBAR).Information from the following report(s) SBAR, Kardex, In take/Output, MAR,Recent Results, Med Rec Status and Cardiac Rhythm nsr was review ed with thereceiving nurse.Opportunity for questions and clarification was provided .Assessment completed upon patient's arrival to unit and care assumed. Name Value Range Interpretation Code Description Data Harriett rce(s) Supporting Document(s ) ID Date Data Source [id number] 12/13/2018 06:39:19 AM EDT [facility] The history is provided by the EMS perso nnel.7:08 PM: Evelio Carlin is a 68 y.o. male with h/o COPD, pneumonia and PE who presents to the ED via EMS from long-term for lethargy since 7 AM, withassociated fever. Per EMS, patient's blood pressure was 90/50, SpO2 88% on roomair, glucose leve l was 266. Patient is wheelchair bound at baseline. Per EMSpatient received [place] ycin prior to transfer. HPI limited as the patient cannotprovide any coherent histo ry or review of systems at this time.Past Medical History:Diagnosis Date Chronic obstructive pulmonary disease (HCC) GERD (gastroesophageal reflux disease) Hyper parathyroidism (HCC) Mental retardation 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) Pneumoni a Psychiatric disorder Pulmonary emboli (HCC) Schizophrenia (HCC)No past surgic al history on file.No family history on file.Social HistorySocioeconomic History Marital status: SINGLE Spouse name: Not on file Number of children: Not on file Y ears of education: Not on file Highest education level: Not on fileOccupational History Not on fileSocial Needs Financial resource strain: Not on file Food insec urity: Worry: Not on file Inability: Not on file Transportation needs: Medical: No t on file Non-medical: Not on fileTobacco Use Smoking status: Never Smoker Smoke less tobacco: Never UsedSubstance and Sexual Activity Alcohol use: No Drug use: No Sexual activity: Not on fileLifestyle Physical activity: Days per week: Not o n file Minutes per session: Not on file Stress: Not on fileRelationships Social connections: Talks on phone: Not on file Gets together: Not on file Attends reli gious service: Not on file Active member of club or organization: Not on file Atten ds meetings of clubs or organizations: Not on file Relationship status: Not on file Intimate partner violence: Fear of current or ex partner: Not on file Emotionally abused: Not on file Physically abused: Not on file Forced sexual activity: Not on fileOther Topics Concern Not on fileSocial History Narrative Not on fileALLERGIES: Patient has no known allergies.Review of SystemsUnable to perform ROS: Mental sta tus changeVitals: 12/12/18199912/12/18202712/12/18213412/12/18 2200BP: 110/66 99/52Pulse: 78 68 70Resp: 18 23 22Temp:SpO2: 94% 93% 98% 98%Weight:Heigh t:10:00 PM Pulse Oximetry reading is 98% on face mask, which indicates normaloxygena tion per Wes Romero MD.Physical ExamConstitutional: He appears well-deve loped and well-nourished. He appearslethargic. No distress.HENT:Head: Normocephalic and atraumatic.Mouth/Throat: Oropharynx is clear and moist. Mucous me mbranes are dry.Eyes: Conjunctivae are normal. No scleral icterus.No conjunctiv al pallor. Post surgical pulipsNeck: Neck supple.Cardiovascular: Normal rate, regu lar rhythm and normal heart sounds.Pulses: Dorsalis pedis pulses are 2+ on the rig ht side, and 2+ on the left side. Posterior tibial pulses are 2+ on the ri ght side, and 2+ on the left side.Pulmonary/Chest: Effort normal. No respiratory distress. He has no wheezes. Hehas rales.Abdominal: Soft. Bowel sound s are normal. There is no tenderness. There is norebound and no guarding.Musculoskel etal:No tenderness or swelling to lower extremities.Contracted bilateral lower e xtremities.PEG tube noted with no surrounding erythema.Neurological: He appears lethar gic.Skin: Skin is warm and dry. No rash noted. No pallor.Nursing note and vitals reviewed.MDMNumber of Diagnoses or Management OptionsCOPD exacerbation (HCC ):Pneumonia, unspecified organism:Sepsis, due to unspecified organism (HCC):Amount and /or Complexity of Data ReviewedClinical lab tests: ordered and reviewedTests in the radiology section of CPT : ordered and reviewedDecide to obtain previous medica l records or to obtain history from someoneother than the patient: yesObtain history from someone other than the patient: yesReview and summarize past medical rec ords: yesDiscuss the patient with other providers: yesIndependent visualization of images, tracings, or specimens: yesCritical CareTotal time providing cri tical care: 30-74 minutesPatient ProgressPatient progress: improvedProced Nick Chaparro Angela J, MD, reviewed the patient's past history, allergies andhom e medications as documented in the nursing chart.Labs:Recent Results (from the past 12 hour(s))EKG, 12 LEAD, INITIAL Collection Time: 12/12/18 7:13 PMResult Value Ref Range Ventricular Rate 82 BPM Atrial Rate 81 BPM P-R Interval 122 ms QRS Duration 132 ms Q-T Interval 436 ms QTC Calculation (Bezet) 509 ms Calculated P [place] 62 degr ees Calculated R [place] 65 degrees Calculated T [place] 66 degrees Diagnosis Sinus rhythmI VCD, consider atypical RBBBProbable inferior infarct, acuteLateral leads are also inv olvedGLUCOSE, POC Collection Time: 12/12/18 7:20 PMResult Value Ref Range Glucose, b edside 195 (H) 65 - 110 MG/DLLACTIC ACID Collection Time: 12/12/18 7:40 PMResult Value Ref Range Lactic acid 5.5 (HH) 0.4 - 2.0 MMOL/LMETABOLIC PANEL, COMPREHENSIVE Collection Time: 12/12/18 7:40 PMResult Value Ref Range Sodium 132 (L) 136 - 145 mmol/L Potassium 4.2 3.5 - 5.1 mmol/L Chloride 92 (L) 98 - 107 mmol/L CO2 34 ( H) 21 - 32 mmol/L Anion gap 10 10 - 20 mmol/L Glucose 155 (H) 74 - 106 mg/dL BUN 12 7 - 18 mg/dL Creatinine 0.74 0.70 - 1.30 mg/dL GFR est AA >60 >60 ml/min/1.73m2 GFR est non-AA >60 >60 ml/min/1.73m2 Calcium 9.4 8.5 - 10.1 mg/dL Bilirubin, total 0.3 0.2 - 1.0 mg/dL ALT (SGPT) 13 13 - 61 U/L AST (SGOT) 19 15 - 37 U/L Alk. phosphatase 6 9 45 - 117 U/L Protein, total 6.7 6.4 - 8.2 g/dL Albumin 2.0 (L) 3.5 - 4.7 g/dL Glob ulin 4.7 1.7 - 4.7 g/dL A-G Ratio 0.4 (L) 0.7 - 2.8CBC WITH AUTOMATED DIFF Collection Time: 12/12/18 7:40 PMResult Value Ref Range WBC 11.0 (H) 4.8 - 10.6 K/uL RBC 3.93 (L ) 4.70 - 6.00 M/uL HGB 13.1 (L) 14.0 - 18.0 g/dL HCT 38.6 (L) 42.0 - 52.0 % MCV 98.2 (H) 81.0 - 94.0 FL MCH 33.3 27.0 - 35.0 PG MCHC 33.9 30.7 - 37.3 g/dL RDW 15.1 (H) 11.5 - 14.0 % PLATELET 191 130 - 400 K/uL MPV 9.6 9.2 - 11.8 FL NEUTROPHILS 88 (H) 48. 0 - 72.0 % LYMPHOCYTES 7 (L) 18.0 - 40.0 % MONOCYTES 5 2.0 - 12.0 % EOSINOPHILS 0 0 .0 - 7.0 % BASOPHILS 0 0.0 - 3.0 % ABS. NEUTROPHILS 9.5 (H) 1.5 - 6.6 K/UL ABS. LYMPHOCYTES 0.8 (L) 1.5 - 3.5 K/UL ABS. MONOCYTES 0.6 0.0 - 1.0 K/UL ABS. EOSINO PHILS 0.0 0.0 - 0.7 K/UL ABS. BASOPHILS 0.0 0.0 - 0.1 K/UL DF AUTOMATED IMMATURE GRA NULOCYTES 1 0.0 - 2.0 %TROPONIN I Collection Time: 12/12/18 7:40 PMResult Value Ref Range Troponin-I, Qt. <0.02 0.00 - 0.05 NG/MLCK Collection Time: 12/12/18 7:40 PMResult Value Ref Range CK 53 39 - 308 U/LBNP Collection Time: 12/12/18 7:40 P MResult Value Ref Range BNP 87 0 - 100 pg/mLPTT Collection Time: 12/12/18 7:40 PMResult Value Ref Range aPTT 28.8 (H) 21.0 - 28.0 SECPROTHROMBIN TIME + INR Collect ion Time: 12/12/18 7:40 PMResult Value Ref Range Prothrombin time 11.2 (H) 9.4 - 11 .1 sec INR 1.1 0.8 - 1.2URINALYSIS W/ RFLX MICROSCOPIC Collection Time: 12/12/18 8 :04 PMResult Value Ref Range Color DARK YELLOW (A) YEL Appearance CLEAR CLEAR Sp ecific gravity 1.035 (H) 1.003 - 1.030 pH (UA) 6.5 4.6 - 8.0 Protein 30 (A) NEG mg /dL Glucose NEGATIVE NEG mg/dL Ketone 5 (A) NEG mg/dL Bilirubin NEGATIVE NEG Blood NEGATIVE NEG Urobilinogen 0.2 0.2 - 1.0 EU/dL Nitrites NEGATIVE NEG Leukocyte E sterase TRACE (A) NEG WBC 5-10 0 - 5 /hpf RBC 3-5 0 - 3 /hpf Epithelial cells 0-3 0 - 10 /hpf Bacteria NONE NONE /hpf Casts 5-10 (A) NONE /lpf Crystals, urine NONE NONE /LPFBLOOD GAS, ARTERIAL Collection Time: 12/12/18 8:07 PMResult Value Ref Range pH 7.40 7.35 - 7.45 PCO2 55 (H) 32 - 48 mmHg PO2 56 (L) 83 - 108 mmHg CO2, TOTAL 36 ( H) 19 - 24 mmol/L BICARBONATE 34 (H) 21 - 28 mmol/L O2 SAT 90 (L) 94 - 98 % BASE EXCE SS 7.5 (H) 0 - 3 mmol/L SITE LEFT RADIAL MIRANDA'S TEST POSITIVE DEVICE NASAL O2 O2 FLOW 2 L/min Performed by [id number]: NSR at 80 BPM, poor baseline, limiting interpre tation, no definite ST focalchanges. Interpreted by Wes Romero, MDRmonica iology:CXR Results (Last 48 hours) 12/12/181950 XR CHEST PORT Final result Impress ion: IMPRESSION:Study quite limited by rotation. Basilar streaks noted. Narrati ve: History:Fever. Lethargy.FINDINGS:2 frontal views of the chest are compared to the prior study of 11/25/2018.EKG leads overlie the chest.The cardiac silhouette is normal in size. There may be some streaky changes atthe lung bases. Evaluation of the lungs and mediastinal structures is quitelimited due to rotation.Radiology i nterpretation reviewed by Wes Romero MD<EMERGENCY DEPARTMENT CASE SUMMARY>Imp ression/Differential Diagnosis: Sepsis, CO2 retention, pneumonia, UTI,electrolytes a bnormality or dehydration.ED Course:68 y.o. male presented to the ED for lethargy an d fever. Will get completeseptic workup including labs, EKG, chest x-ray and cul tures of the blood andurine. Will give Zosyn 3.375mg, Solu-Medrol 125mg, albuterol tr eatment, and IVF.ABG shows hypoxia, otherwise ok.9:16 PM - A sepsis reassessment an d physical exam was performed.9:34 PM - Labs and radiology reviewed, patient's lactat e level is 5.5. Ptalready received antibiotics and sepsis fluid bolus in pr ogress.10:00 PM - Discussed the case with Dr. Hills (PCP), she will admit the patient .Patient was reassessed prior to disposition.Final Impression/Diagnosis:E ncounter Diagnoses ICD-10-CM ICD-9-CM1. Sepsis, due to unspecified organism ([facility] ) A41.9 038.9 995.912. Pneumonia, unspecified organism J18.9 4863. COPD ex acerbation ([facility]) J44.1 491.21Patient condition at time of disposition: tammy Prather have reviewed the following home medications:Prior to Admission medicatio nsMedication Sig Start Date End Date Taking? Authorizing Providerpantoprazole (PROTON IX) 40 mg granules for oral suspension 40 mg by Per G Tuberoute Daily (before ). 11/28/18 Mili Hills DObudesonide (PULMICORT) 0.5 mg/2 mL nbsp 2 mL by Neb ulization route two (2) timesa day for 30 days. 11/27/18 12/27/18 Reinier, Mili, DOmultivitamin (ONE A DAY) tablet Take 1 Tab by mouth daily. Provider,Historicalcl orazepate (TRANXENE) 3.75 mg tablet Take by mouth nightly. Provider,Historicalnaa uterol-ipratropium (DUO-NEB) 2.5 mg-0.5 mg/3 ml nebu 3 mL by Nebulizationroute every six (6) hours as needed. Provider, HistoricallamoTRIgine (LAMICTAL) 25 mg t ablet Take 50 mg by mouth two (2) times a day.Provider, Historicalcinacalcet (SENS IPAR) 30 mg tablet Take 60 mg by mouth daily. Provider,Historicalvalproate (DEPAKEN E) 250 mg/5 mL syrup Take 750 mg by mouth two (2) times a day.Provider, Wes Leyva MD I, Rachel Stone, am serving as a scribe to document services personallyperformed by Wes Romero MD based on my observation and the provi bassem'sstatements to me.I, Wes Romero MD, attest that the person(s) noted abov abbey, acting as myscribe(s) noted above, has observed my performance of the services and hasdocumented them in accordance with my direction. I have personally reviewed th eabove information and have ordered and reviewed the diagnostic studies, unlesso therwise noted. Name Value Range Interpretation Code Description Data Harriett rce(s) Supporting Document(s ) ID Date Data Source [id number] 12/13/2018 05:39:10 AM EDT [facility] Name Value Range Interpretation Description Data Sup porting Code Source(s) Document(s ) Lactate 2.1 0.4-2.0 Above upper panic [facility] - Good [Moles/volu MMOL/L limits [facility]] in Hospital Serum or Plasma CALLED TO AND READ BACK BYANNE HOLLOWAY RN/CCU [id number] 12/13/18 JERRY HUIZARRODOLFO ID Date Data Source [id number] 12/13/2018 05:20:38 AM EDT [facility] Name Value Range Interpretation Description Data Sup porting Code Source(s) Document(s ) Sodium 136 136-145 [facility] - Good [Moles/volume] mmol/L [facility] in Serum or Hospital Plasma Potassium 4.3 3.5-5.1 [facility] - Good [Moles/volume] mmol/L [facility] in Serum or Hospital Plasma Chloride 100 98-107 [facility] - Good [Moles/volume] mmol/L [facility] in Serum or Hospital Plasma Carbon 30 21-32 [facility] - Good dioxide, total mmol/L [facility] [Moles/volume] Hospital in Serum or Plasma Anion gap in 10 10-20 [facility] - [facility] Serum or mmol/L [facility] Glucose 134 74-106 Above high normal [facility] - [facility] [Mass/volume] mg/dL [facility] Serum or Hospital Plasma Urea nitrogen 11 mg/dL 7-18 [facility] - [facility] [Mass/volume] [facility] in Serum or Hospital Plasma Creatinine 0.42 0.70-1.3 Below low normal [facility] - [facility] [Mass/volume] mg/dL 0 [facility] in Serum or Hospital Plasma Glomerular >60 [facility] - Good filtration [facility] rate/1.73 sq M Hospital predicted among blacks [Volume Rate/Area] in Serum or Plasma by Creatinine-bas ed formula (MDRD) Glomerular >60 [facility] - Good filtration [facility] rate/1.73 sq M Hospital predicted among non-blacks [Volume Rate/Area] in Serum or Plasma by Creatinine-bas ed formula (MDRD) Calcium 8.4 8.5-10.1 Below low normal [facility] - [facility] [Mass/volume] mg/dL [facility] in Serum or Hospital Plasma Phosphate 2.4 2.5-4.9 Below low normal [facility] - [facility] [Mass/volume] mg/dL [facility] in Serum or Hospital Plasma Albumin 2.0 g/dL 3.5-4.7 Below low normal [facility] - [facility] [Mass/volume] [facility] in Serum or Hospital Plasma by Bromocresol purple (BCP) dye binding method ID Date Data Source [id number] 12/13/2018 05:20:38 AM EDT [facility] Name Value Range Interpretation Description Data Sup porting Code Source(s) Document(s ) Magnesium 1.9 mg/dL 1.6-2.6 [facility] - [facility] [Mass/volume] [facility] in Serum or Hospital Plasma ID Date Data Source [id number] 12/13/2018 04:56:16 AM EDT [facility] Name Value Range Interpretation Description Data Sup porting Code Source(s) Document(s ) Leukocytes 8.4 K/uL 4.8-10.6 [facility] - [#/volume] in Good Blood by [facility] count Hospital Erythrocytes 3.39 4.70-6.0 Below low normal [facility] - [#/volume] in M/uL 0 [facility] Blood by [facility] Hemoglobin 11.2 14.0-18. Below low normal [facility] - [Mass/volume] in g/dL 0 [facility] Blood [facility] Hematocrit 33.7 % 42.0-52. Below low normal [facility] - [Volume 0 Good Fraction] of [facility] Blood by [facility] Automated count Erythrocyte mean 99.4 FL 81.0-94. Above high normal [facility] - corpuscular 0 Good volume [Entitic Taoist volume] by Hospital Automated count Erythrocyte mean 33.0 PG 27.0-35. [facility] - corpuscular 0 Good hemoglobin Taoist [Entitic mass] [facility] by Automated count Erythrocyte mean 33.2 30.7-37. [facility] - corpuscular g/dL 3 Good hemoglobin [facility]ist concentration [facility] [Mass/volume] by Automated count Erythrocyte 15.4 % 11.5-14. Above high normal [facility] - distribution 0 Good width [Ratio] by [facility] Platelets 138 K/uL 130-400 [facility] - [#/volume] in Good Blood by [facility] Automated count [facility] Platelet mean 9.1 FL 9.2-11.8 Below low normal [facility] - volume [Entitic Good volume] in Blood [facility] by Automated Hospital count Segmented 85 % 48.0-72. Above high normal [facility] - neutrophils/100 0 Good leukocytes in [facility] Lymphocytes/100 10 % 18.0-40. Below low normal [facility] - leukocytes in 0 [facility] Blood [facility] Monocytes/100 5 % 2.0-12.0 [facility] - leukocytes in [facility] Blood [facility] Eosinophils/100 0 % 0.0-7.0 [facility] - leukocytes in [facility] Basophils/100 0 % 0.0-3.0 [facility] - leukocytes in [facility] Segmented 7.2 K/UL 1.5-6.6 Above high normal [facility] - neutrophils Good [#/volume] in [facility] Lymphocytes 0.8 K/UL 1.5-3.5 Below low normal [facility] - [#/volume] in [facility] Monocytes 0.4 K/UL 0.0-1.0 [facility] - [#/volume] in [facility] Eosinophils 0.0 K/UL 0.0-0.7 [facility] - [#/volume] in [facility] Basophils 0.0 K/UL 0.0-0.1 [facility] - [#/volume] in [facility] Differential [facility] - cell count Good method - [facility] Immature 1 % 0.0-2.0 [facility] - granulocytes/100 Good leukocytes in [facility] by Hospital Automated count ID Date Data Source [id number] 12/13/2018 01:32:28 AM EDT [facility] - [facility] [id number] [facility] [employer] [facility] [address] [place] [facility] [address] [facility] [address] [phone]/ Evelio Carlin (Male) [id number] ES I 2 ED Dispo:ADMIT Chief Complaint: Lethargy, Fever Diagnosis: Sepsis, due to unspecified organism (HCC) [] Pneumonia, unspecified organism [] COPD exacerbation (HCC) [] Current Providers: Attending: Devang Romero; Eloisa Spencer Consulting Provider: Eloisa Hills Primary Nurse: ANNA TidwellN: [id number] 4 [phone] [employer] [phone] - [facility] [address] [employer] Medva MrnMRN: [id number] [employer] [phone] - [facility] [address] [employer] Medva Age SexDOB 1950 AGE 68 SEX Male Primary Care Provider: Mili Hills DO Yqbbgvcgz: (No Known Allergies)Date Reviewed: 12/12/2018Reviewed by: Aliyah Arellano RN - Review CompleteED Provider Notes: No notes of this type exist for this encounter.ED Orders [id number] C ULTURE, BLOOD [#[id number]] Priority: STAT Class: ER Collect Specimen Source: Bloo d Standing Order Information Remaining Occurrences:0/1 Interval:ONE TIME Last released: 12/12/2018 Released orders: SatDec 12, 2018 7:16 PM by: WES ROMERO [id number] CULTURE , BLOOD [#[id number]] Priority: STAT Class: ER Collect Specimen Source: Blood St anding Order Information Remaining Occurrences:0/1 Interval:ONE TIME Last released:0 12/12/2018 Released orders: SatDec 12, 2018 7:16 PM by: WES ROMERO [id number] CULTURE , URINE [#[id number]] Priority: STAT Class: ER Collect Specimen Source: Cath Urine Standing Order Information Remaining Occurrences:0/1 Interval:ONE TIME Last released:0 12/12/2018 Released orders: SatDec 12, 2018 7:16 PM by: WES ROMERO Reason for C ulture -> Other [id number] CULTURE, BLOOD [#[id number]] Priority: STAT Class: E R Collect Specimen Source: Blood Specimen Collected: 12/12/2018 7:40 PM Resulting Agency: [facility] Test ID: HBCS Released on: 12/12/2018 7:16 PM [id number] CULTURE, BLOOD [#[id number]] Priority: STAT Class: ER Collect Specimen Source: Blood Specimen Collected: 12/12 7:40 PM Resulting Agency: [facility] Test ID: HBCS Released on: 12/12/2018 7:16 PM [id number] CULTURE, URINE [#[id number]] Priority: STAT Class: ER Collect Sp ecimen Source: Cath Urine Resulting Agency: [facility] Test ID: CAPTAIN FISHING VESSEL Reason for Culture -> Other Released on: 12/12/2018 7:16 PM [id number] CULTURE, URINE [# [id number]] Priority: Routine Class: ER Collect Resulting Agency: [facility] Test ID: CAPTAIN FISHING VESSEL Standing Order Information Remaining Occurrences:0/1 Released orders: SatDec 12, 2018 8:04 PM by: Automatic Batch Process [id number] CULTURE, URINE [#[id number]] Pr iority: Routine Class: ER Collect Specimen Collected: 12/12/2018 8:04 PM Resulting Agency: [facility] Test ID: CAPTAIN FISHING VESSEL Released on: 12/12/2018 8:04 PM [id number] LACTIC ACID [#[id number]] Priority: STAT Class: ER Collect Standing Order Information Remainin g Occurrences:0/2 Interval:EVERY 4 HRS Last released:12/12/2018 Released orders : SatDec 12, 2018 11:01 PM by: WES ROMERO SatDec 12, 2018 7:16 PM by: WES DAWSON [id number] URINALYSIS W/ RFLX MICROSCOPIC [#[id number]] Priority: STAT Class: E R Collect Standing Order Information Remaining Occurrences:0/1 Interval:ONE TIME Last r eleased:12/12/2018 Released orders: SatDec 12, 2018 7:16 PM by: WES ROMERO [id number] M ETABOLIC PANEL, COMPREHENSIVE [#[id number]] Priority: STAT Class: ER Collect Standing Order Info rmation Remaining Occurrences:0/1 Interval:ONE TIME Last released:12/12/2018 Released orders: SatDec 12, 2018 7:16 PM by: WES ROMERO [id number] CBC WITH AUTOMATED DIFF [#[id number]] Priority: STAT Class: ER Collect Standing Order Information Remaining Occurre nces:0/1 Interval:ONE TIME Last released:12/12/2018 Released orders: SatDec 12 7:16 PM by: WES ROMERO [id number] TROPONIN I [#[id number]] Priority: STAT Class: ER Collect Standing Order Information Remaining Occurrences:0/1 Interval:ONE TI ME Last released:12/12/2018 Released orders: SatDec 12, 2018 7:16 PM by: Devang ROMERO [id number] CK [#[id number]] Priority: STAT Class: ER Collect St anding Order Information Remaining Occurrences:0/1 Interval:ONE TIME Last released:0 12/12/2018 Released orders: SatDec 12, 2018 7:16 PM by: WES ROMERO [id number] BNP [#[id number]] Priority: STAT Class: ER Collect Standing Order Information Remaining Occurrences:0/1 Interval:ONE TIME Last released:12/12/2018 Released orders : SatDec 12, 2018 7:16 PM by: WES ROMERO [id number] PTT [# [id number]] Priority: STAT Class: ER Collect Specimen Source: Blood Standing Order Information Remaining Occurrences:0/1 Interval:ONE TIME Last released:12/12/2018 Released orders : SatDec 12, 2018 7:16 PM by: WES ROMERO [id number] PROTHROMBIN TIME + INR [# [id number]] Priority: STAT Class: ER Collect Standing Order Information Remaining Occurrences:0 /1 Interval:ONE TIME Last released:12/12/2018 Released orders: SatDec 12, 2018 7:16 PM by: WES ROMERO [id number] BLOOD GAS, ARTERIAL [#[id number]] Priority: S TAT Class: ER Collect Standing Order Information Remaining Occurrences:0/1 Interval:ONE TI ME Last released:12/12/2018 Released orders: SatDec 12, 2018 7:16 PM by: Devang ROMERO [id number] LACTIC ACID [#[id number]] Priority: STAT Class: ER Collect Spec imen Source: Plasma Specimen Collected: 12/12/2018 7:40 PM Resulting Agency: [facility] Test ID: LAC Released on: 12/12/2018 7:16 PM [id number] URINALYSIS W/ RFLX MICROSCOPIC [#[id number]] Priority: STAT Class: ER Collect Specimen Source: Urine Specimen Collected: 12/12 8:04 PM Resulting Agency: [facility] Test ID: UA Released on: 12/12/2018 7:16 PM [id number] METABOLIC PANEL, COMPREHENSIVE [#[id number]] Priority: STAT Class: ER Collect Spec imen Source: Plasma Specimen Collected: 12/12/2018 7:40 PM Resulting Agency: [facility] Test ID: MPL Released on: 12/12/2018 7:16 PM [id number] CBC WITH AUTOMATED DIFF [#[id number]] Priority: STAT Class: ER Collect Specimen Source: Whole Blood Specimen Collected: 12/12/2018 7:40 PM Resulting Agency: [facility] Test ID: CBCA Released on : 12/12/2018 7:16 PM [id number] TROPONIN I [#[id number]] Priority: STAT Class: E R Collect Specimen Source: Plasma Specimen Collected: 12/12/2018 7:40 PM Resulting Agency: [facility] Test ID: TROIP Released on: 12/12/2018 7:16 PM [id number] CK [#[id number]] Priority: STAT Class: ER Collect Specimen Source: Plasma Specimen Collected: 11/15 7:40 PM Resulting Agency: [facility] Test ID: CPKP Released on: 12/12/2018 7:16 PM [id number] BNP [#[id number]] Priority: STAT Class: ER Collect Sp ecimen Source: Plasma Specimen Collected: 12/12/2018 7:40 PM Resulting Agency: [facility] Test ID: BNPPB Released on: 12/12/2018 7:16 PM [id number] PTT [#[id number]] Priority: STAT Class: ER Collect Specimen Source: Plasma Specimen Collected: 11/15 7:40 PM Resulting Agency: [facility] Test ID: APTT Released on: 12/12/2018 7:16 PM [id number] PROTHROMBIN TIME + INR [#[id number]] Priority: STAT Class: ER Collect Sp ecimen Source: Plasma Specimen Collected: 12/12/2018 7:40 PM Resulting Agency: [facility] Test ID: APTHR Released on: 12/12/2018 7:16 PM [id number] BLOOD GAS, ARTERIAL [#[id number]] Priority: STAT Class: ER Collect Released on: 12/12/2018 7:16 PM [id number] CBC WI TH AUTOMATED DIFF [#[id number]] Canceled Priority: STAT Class: ER Collect Canceled by GEOVANI, LAB IN [employer] on SatDec 12, 2018 8:38 PM Reason: Other Comment: DUPLICATE REQUEST Standing Order Information Remaining Occurrences:0/1 Interval:ONE TIME Last released:0 12/12/2018 Released orders: SatDec 12, 2018 7:56 PM by: WES ROMERO [id number] CBC WIT H AUTOMATED DIFF [#[id number]] Canceled Priority: STAT Class: ER Collect Specimen Collected : 12/12/2018 8:00 PM Resulting Agency: [facility] Test ID: CBCDevang Cancele d by GEOVANI LAB IN [employer] on SatDec 12, 2018 8:38 PM Reason: Other Comment: DUPLICATE REQUEST Released on: 12/12/2018 7:56 PM [id number] BLOOD GAS, ARTERIAL [#[id number]] Priority: Routine Class: ER Collect Resulting Agency: [facility] Test ID: ABGG1 Standing O rder Information Remaining Occurrences:0 Released orders: SatDec 12, 2018 8:07 PM by: Devang bachomatic Batch Process [id number] BLOOD GAS, ARTERIAL [#[id number]] Priority: Routine Class : ER Collect Specimen Source: Arterial Blood Specimen Collected: 12/12/2018 8:07 PM Resulting Agency: [facility] Test ID: ABGG1 Released on: 12/12/2018 8:07 PM [id number] LACTIC ACI D [#[id number]] Priority: STAT Class: ER Collect Specimen Source: Plasma Specim en Collected: 12/13/2018 12:30 AM Resulting Agency: [facility] Test ID: LAC Rel eased on: 12/12/2018 11:01 PM [id number] RENAL FUNCTION PANEL [#[id number]] Priority: Routine Class: ER Collect Standing Order Information Remaining Occurrences:14 Interval:DAILY Last released:12/12/2018 Released orders: SatDec 12, 2018 11:37 PM by: MILI HILLS [id number] MAGNESIUM [#[id number]] Priority: Routine Class: ER Collect Standing Order Information Remaining Occurrences:1415 Interval:DAILY Last released:11/15 Released orders: SatDec 12, 2018 11:37 PM by: MILI HILLS [id number] CBC WITH AUTOM ATED DIFF [#[id number]] Priority: Routine Class: ER Collect Standing Order Information Remaining Occurrences:2/3 Interval:DAILY Last released:12/12/2018 Released orders : SatDec 12, 2018 11:37 PM by: MILI HILLS [id number] LACTIC ACID [# [id number]] Priority: Routine Class: ER Collect Standing Order Information Remaining Occurrences:0 /1 Interval:TOMORROW AM Last released:12/12/2018 Released orders: SatDec 12, 2018 11:37 PM by: MILI HILLS [id number] RENAL FUNCTION PANEL [#[id number]] Priority: Rout ine Class: ER Collect Resulting Agency: [facility] Test ID: RENLP Released o n: 12/12/2018 11:37 PM [id number] MAGNESIUM [#[id number]] Priority: Routine Class : ER Collect Resulting Agency: [facility] Test ID: MGPL Released on: 12/12/2018 11:37 PM [id number] CBC WITH AUTOMATED DIFF [#[id number]] Priority: Routine Class: ER Collect Resulting Agency: [facility] Test ID: CBCA Released on: 12/12/2018 11:37 PM [id number] LACTIC ACID [#[id number]] Priority: Routine Class: ER Collect Resulting Ag ency: [facility] Test ID: LAC Released on: 12/12/2018 11:37 PM [id number] LACTIC ACI D [#[id number]] Canceled Priority: STAT Class: ER Collect Canceled by GEOVANI , LAB IN [employer] on Sat Dec 13, 2018 12:49 AM Reason: Other Comment: DUPLICATE REQUEST Standin g Order Information Remaining Occurrences:0/1 Interval:ONE TIME Last released:0 12/13/2018 Released orders: SatDec 13, 2018 12:08 AM by: WES ROMERO [id number] LACTIC ACID [#[id number]] Canceled Priority: STAT Class: ER Collect Specimen Collected : 12/13/2018 12:15 AM Resulting Agency: [facility] Test ID: LAC Canceled by GEOVANI, LAB IN [employer] on Sat Dec 13, 2018 12:49 AM Reason: Other Comment: DUPLICATE REQUEST Released on: 12/13/2018 12:08 AM [id number] XR CHEST PORT [#[id number]] Priority: STAT Class: Hospital Performed Standing Order Information Remaining Occurrences:0/1 Inter seema:ONE TIME Last released:12/12/2018 Released orders: SatDec 12, 2018 7:16 PM by: WES RAMOS Reason for Exam -> Sepsis [id number] XR CHEST PORT [#[id number]] P riority: STAT Class: Hospital Performed Specimen Collected: 12/12/2018 8:02 PM Resulting Agency: [facility] Test ID: [id number] Reason for Exam -> Sepsis Released on: 12/12/2018 7:16 PM [id number] XR CHEST PORT [#[id number]] Priority: STAT Class: Hospital Performed Stand ing Order Information Remaining Occurrences:0/1 Interval:ONE TIME Last released:0 12/12/2018 Released orders: SatDec 12, 2018 8:27 PM by: WES ROMERO Reason for E xam -> first study poor quality, rotated, limiting interpitation [id number] XR CHEST PORT [#[id number]] Priority: STAT Class: Hospital Performed Resulting Agency: [facility] Test ID: [id number] Reason for Exam -> first study poor quality, rotated, limiting i nterpitation Released on: 12/12/2018 8:27 PM [id number] EKG, 12 LEAD, INITIAL [#[id number]] Priority: STAT Class: Hospital Performed Standing Order Information Remaining Occurrences:0 /1 Interval:ONE TIME Last released:12/12/2018 Released orders: SatDec 12, 2018 7:16 PM by: WES ROMERO Reason for Exam: -> Sepsis [id number] EKG, 12 LEAD, INITIAL [#[id number]] Priority: STAT Class: Hospital Performed Specimen Collected: 12/12/2018 7:13 PM Resulting Agency: [facility] Test ID: [id number] Reason for Exam: -> Sepsis Released on: 12/12/2018 7:16 PM [id number] VITAL SIGNS [#[id number]] Priority: Routine Class: Hospital Perfo rmed Standing Order Information Remaining Occurrences:0/1 Interval:EVERY HOUR Last rele ased:12/12/2018 Released orders: SatDec 12, 2018 7:16 PM by: WES ROMERO [id number] I & O [#[id number]] Priority: Routine Class: Hospital Performed Standing Or bassem Information Remaining Occurrences:0/1 Interval:CONTINUOUS Last released :12/12/2018 Released orders: SatDec 12, 2018 7:16 PM by: WES ROMERO [id number] NEUROLO GIC STATUS ASSESSMENT [#[id number]] Priority: Routine Class: Hospital Performed Standing Or bassem Information Remaining Occurrences:0/1 Interval:EVERY HOUR Last released:12/12/2018 Released orders: SatDec 12, 2018 7:16 PM by: WES ROMERO [id number] NOTIFY PROVIDER: JOMAR PIÑA [#[id number]] Priority: STAT Class: Hospital Performed Standing Order Information Remaining Occurrences:0/1 Interval:CONTINUOUS Last released:12/12/2018 Released o rders: SatDec 12, 2018 7:16 PM by: WES RMOERO Describe Order -> Notify provider within one hour to start vasopressors if patient is unable to maintain a MAP of greater than or equal to 65 mmHg despite fluid resuscitation [id number] HEMODYNAMIC MONITORING [#[id number]] Priority: STAT Class: Hospital Performed Standing Order Information Remainin g Occurrences:0/1 Interval:CONTINUOUS Last released:12/12/2018 Released orders : SatDec 12, 2018 7:16 PM by: WES ROMERO Comment:In the event of persistent arter ial hypotension after two hours of fluid resuscitation efforts, or initial lactate greater than or equal to 4 mmol/L (36 mg/dl) measure and record CVP and ScvO2 [id number] MEASURE RECTAL TEMPERATU RE [#[id number]] Priority: STAT Class: Hospital Performed Standing Order Information Remaining Occurrences:0/1 Interval:ONE TIME Last released:12/12/2018 Released orders : SatDec 12, 2018 7:16 PM by: WES ROMERO [id number] POC GLUCOSE [# [id number]] Priority: STAT Class: Hospital Performed Standing Order Information Remaining Occurre nces:0/1 Interval:CONTINUOUS Last released:12/12/2018 Released orders: SatDec 12, 2018 7:16 PM by: WES ROMERO [id number] VITAL SIGNS [#[id number]] Priorit y: STAT Class: Hospital Performed Released on: 12/12/2018 7:16 PM [id number] STRICT I & O [#[id number]] Priority: STAT Class: Hospital Performed Released on: 12/12/2018 7:16 PM [id number] NEUROLOGIC STATUS ASSESSMENT [#[id number]] Priority: STAT Class: Hospital Performed Relea sed on: 12/12/2018 7:16 PM [id number] NOTIFY PROVIDER: SPECIFY [#[id number]] Priority: STAT Cla ss: Hospital Performed Describe Order -> Notify provider within one hour to start vasopressors if patient is unable to maintain a MAP of greater than or equal to 65 mmHg despi te fluid resuscitation Released on: 12/12/2018 7:16 PM [id number] HEMODYNAMIC MONITORING [# [id number]] Priority: STAT Class: Hospital Performed Comment:In the event of persistent arterial hypoten elio after two hours of fluid resuscitation efforts, or initial lactate greater than or equal to 4 mmol/L (36 mg/dl) measure and record CVP and ScvO2 Released on: 12/12/2018 7:16 PM [id number] MEASURE RECTAL TEMPERATURE [#[id number]] Priority: STAT Class: Hospital Performed Relea sed on: 12/12/2018 7:16 PM [id number] POC GLUCOSE [#[id number]] Priority: STAT Cla ss: Hospital Performed Released on: 12/12/2018 7:16 PM [id number] NOTIFY PROVIDER: SPECIFY [# [id number]] Priority: STAT Class: Hospital Performed Standing Order Information Remaining Occurre nces:0/1 Interval:CONTINUOUS Last released:12/12/2018 Released orders: SatDec 12, 2018 7:56 PM by: WES ROMERO Describe Order -> Notify provider within one hour to start vasopr essors if patient is unable to maintain a MAP of greater than or equa l to 65 mmHg despite fluid resuscitation [id number] HEMODYNAMIC MONITORING [#[id number]] Priority: STAT Class: Hospital Performed Standing Order Information Remaining Occurrences:0 /1 Interval:CONTINUOUS Last released:12/12/2018 Released orders: SatDec 12, 2018 7:56 PM by: WES ROMERO Comment:In the event of persistent arterial hypotension after tw o hours of fluid resuscitation efforts, or initial lactate greater than or equal to 4 mm ol/L (36 mg/dl) measure and record CVP and ScvO2 [id number] NOTIFY PROVIDER: SPECIFY [#[id number]] Priority: STAT Class: Hospital Performed Describe Order -> Notify provider within one hour to st art vasopressors if patient is unable to maintain a MAP of greater than or equal to 65 mmHg despite fluid resuscitation Released on: 12/12/2018 7:56 PM [id number] HEMODYNAMI C MONITORING [#[id number]] Priority: STAT Class: Hospital Performed Comment:In the eduardo nt of persistent arterial hypotension after two hours of fluid resuscitation efforts, or initial lactate greater than or equal to 4 mmol/L (36 mg/dl) measure and record CVP and ScvO2 Rele ased on: 12/12/2018 7:56 PM IVT11 SALINE LOCK IV [#[id number]] Priority: STAT Cl ass: Hospital Performed Standing Order Information Remaining Occurrences:0/1 Interval:ONE TI ME Last released:12/12/2018 Released orders: SatDec 12, 2018 7:16 PM by: Devang ROMERO IVT11 SALINE LOCK IV [#[id number]] Priority: STAT Class: Hospital Perform ed Released on: 12/12/2018 7:16 PM SODIUM CHLORIDE 0.9 % IJ SYRG [#[id number]] Priority : STAT Class: Normal PIPERACILLIN-TAZOBACTAM 3.375 GRAM I* [#[id number]] Priority: STAT Class: N ormal Antibiotic Indications -> Sepsis of Unknown Etiology PIPERACILLIN-TAZOBACTAM 3.375 GRAM I* [#[id number]] Priority: STAT Class: Normal Antibiotic Indications -> Sepsis of Unknown Etiolog y IPRATROPIUM-ALBUTEROL 2.5 MG-0.5 MG/* [#[id number]] Priority: STAT Class: Normal MODE OF DELIVERY -> Nebulizer METHYLPREDNISOLONE (PF) 125 MG/2 ML * [#[id number]] Priority: STAT Class: Normal IPRATROPIUM-ALBUTEROL 2.5 MG-0.5 MG/* [#[id number]] Priority: STAT Class: Normal MODE OF DELIVERY -> Nebulizer IPRATROPIUM-ALBUTEROL 2.5 MG-0.5 MG/* [#[id number]] Priority: STAT Cla ss: Normal MODE OF DELIVERY -> Nebulizer SODIUM CHLORIDE 0.9% BOLUS IV [#[id number]] Priority: STAT Class: Normal SODIUM CHLORIDE 0.9% BOLUS IV [#[id number]] Priorit y: STAT Class: Normal MD38 SEVERE SEPSIS AND SEPTIC SHOCK BUNDL* [#[id number]] Priority: STAT Class: H ospital Performed Standing Order Information Remaining Occurrences:0/1 Interval:CONTIN UOUS Last released:12/12/2018 Released orders: SatDec 12, 2018 7:16 PM by: Devang ROMERO SEVERE SEPSIS AND SEPTIC SHOCK [facility]* [#[id number]] Priority: STAT Class: Hospital Perform ed Released on: 12/12/2018 7:16 PM SCOTTIE SEVERE SEPSIS AND SEPTIC SHOCK [facility]* [#[id number]] Prio rity: STAT Class: Hospital Performed Standing Order Information Remaining Occurrences:0/1 Int erval:CONTINUOUS Last released:12/12/2018 Released orders: SatDec 12, 2018 7:56 PM by: WES ROMERO SEVERE SEPSIS AND SEPTIC SHOCK [facility]* [#[id number]] Priority: STAT Class: H ospital Performed Released on: 12/12/2018 7:56 PM [id number] TYPE & SCREEN [#[id number]] Canceled Priority: STAT Class: ER Collect Canceled by GEOVANI, LAB IN [employer] on SatDec 13, 2018 1:11 AM Reason: Other Comment: NO SAMPLE RECEIVED Standing Order Information Remainin g Occurrences:0/1 Interval:ONE TIME Last released:12/12/2018 Released orders : SatDec 12, 2018 7:16 PM by: WES ROMERO Comment:ENTER SURGERY DATE IF FOR PRE-OP TESTING. [id number] TYPE & SCREEN [#[id number]] Canceled Priority: STAT Class: ER Co llect Specimen Collected: 12/12/2018 7:30 PM Resulting Agency: [facility] Test ID: TYSC Canceled by GEOVANI, LAB IN [employer] on SatDec 13, 2018 1:11 AM Reason: Other Comment: NO SAMPLE RECEIVED Comment:ENTER SURGERY DATE IF FOR PRE-OP TESTING. Released on: 12/12/2018 7:1 6 PM [id number] GLUCOSE, POC [#[id number]] Priority: Routine Class: ER Collect Re sulting Agency: [facility] Test ID: BGG Standing Order Information Remainin g Occurrences:0/1 Released orders: SatDec 12, 2018 7:20 PM by: [employer] [id number] 25 GLUCOSE, POC [#[id number]] Priority: Routine Class: ER Collect Specimen Harriett rce: Whole Blood Specimen Collected: 12/12/2018 7:20 PM Resulting Agency: [facility] Test ID: BGG Released on: 12/12/2018 7:20 PM [id number] IP CONSULT TO PRIMARY CARE PROVIDER [#[id number]] Priority: STAT Class: Hospital Performed Standing Order Information Remaining Occurrences:0 /1 Interval:ONE TIME Last released:12/12/2018 Released orders: SatDec 12, 2018 9:53 PM by: WES ROMERO Reason for Consult: -> admission Did you call or speak to the consulting provider? -> No Consult To -> reinier [id number] IP CONSULT TO PRIMARY CARE PROVIDER [#[id number]] Priority: STAT Class: Hospital Performed Comment:dr Romero spoke w dr Hills Reason f or Consult: -> admission Did you call or speak to the consulting provider? -> No Consult To -> olivia n Released on: 12/12/2018 9:53 PM [id number] INITIAL PHYSICIAN ORDER: INPATIENT [#[id number]] Dvein foley: Routine Class: ADT Pend Transfer Standing Order Information Remaining Occurrences:0/1 I nterval:ONE TIME Last released:12/12/2018 Released orders: SatDec 12, 2018 11:34 PM by: MILI HILLS Status: -> INPATIENT Inpatient Hospitalization Certified Necessary for the Following Reasons -> 4- . P- a- t- i- e- n- t r- e- q- u- i- r - e- s I- C- U l- e- v- e- l o- f c- a- r- e i- n- t- e- r- v- e- n- t- i- o- n- s (- f- u- r- t- h- e- r c- l- a- r- i- f- i- c- a- t- i- o- n i- n H- &- P d- o- c- u- m- e- n- t- a- t- i- o- n- ) Admitting Diagnosis -> Sepsis due to undetermined organism (HCC) -> Pneumonia Admitting Physician -> MILI HILLS Attend ing Physician -> MILI HILLS Estimated Length of Stay -> 3-4 Midnights Discharge Plan: -> Extend ed Care Facility (e.g. Adult Home, Detention, etc.) [id number] INITIAL PHYSICIAN ORDER: INPATIENT [#[id number]] Priority: Routine Class: ADT Pend Transfer Status: -> INPATIENT Inpatient Hospitalization Certified Necessary for the Following Reasons -> 4- . P- a- t- i- e- n- t r- e- q- u- i- r- e- s I- C- U l- e- v- e - l o- f c- a- r- e i- n- t- e- r- v- e- n- t- i- o- n- s (- f- u- r- t- h- e- r c- l- a- r- i- f- i- c- a- t- i- o- n i- n H- &- P d- o- c- u- m- e- n- t- a- t- i- o- n- ) Admitting Diagnosis -> Sepsis due to undetermined organism (HCC) -> Pneumonia Admitting Physician -> MILI HILLS Attending Physician -> MILI HILLS Length of Stay -> 3-4 Midnights Discharge Plan: -> Extended Care Facility (e.g. Adult Home, Detention, etc.) Released on: 12/12/2018 11:34 PM CON54 IP CONSULT TO PULMONOLOGY [#[id number]] Priority: Routine Class: Hospital Performed Standing Order Information Odinin carol Occurrences:N/A-not released Interval:ONE TIMEkristoferEvelio herrera MR#: [id number]* Rm: 279-01Ht: 5' 2" Wt: 117 lb Code: Prior Iso:Diagnosis:Sepsis due to undetermined organism (HCC) [A41.9]Allergies: No Known Allergies -------- Current as of: 12/13/18 0132 GI=Given NB=New Bag --albuterol-ipratropium (DUO-NEB) 2.5 MG-0.5 MG/3 ML #[id number] Admin Amount: 3 mL Ordered Dose: 3 mL Route: Nebulization Freq: NOW Start Date: 11/07/18 No administration times (back 96 hours, ahead 96 hours). ------methylPREDNISolone (PF) (Solu-MEDROL) injection 125 mg #[id number] Admin Amount: 2 mL = 125 mg of 125 mg/2 mL Ordered Dose: 125 mg Route: Int raVENous Freq: NOW Start Date: 11/07/18 No administration times (back 96 hours, ahe ad 96 hours). ------cefTRIAXone (ROCEPHIN) 1 g in 0.9% sodium chloride (MBP/ADV) 50 m L M*#[id number] Admin Amount: 1 g Ordered Dose: 1 g Route: IntraVENous Freq: NOW Start Date: 11/07/18 Rate: 100 mL/hr Duration: 30 Minutes No administration times (back 96 hours, ahead 96 hours). ------azithromycin (ZITHROMAX) 500 mg in NS 250 mL #[id number] Admin Amount: 250 mL = 500 mg of 500 mg/250 mL Ordered Dose: 500 mg Ro manzanita: IntraVENous Freq: NOW Start Date: 11/07/18 Rate: 250 mL/hr Dura tion: 60 Minutes No administration times (back 96 hours, ahead 96 hours). ------iopamidol (ISOVUE-370) 76 % injection 100 mL #[id number] Admin Amount: 100 mL Ordered Dose: 100 mL Route: IntraVENous Freq: RAD ONC E Start Date: 11/07/18 No administration times (back 96 hours, ahead 96 hours). ------sodium chloride 0.9 % bolus infusion 500 mL #[id number] Admin Amount: 500 mL Ordered Dose: 500 mL Route: IntraVENous Freq: ONCE Start Date: 11/08/18 Rate: 666.7 mL/hr Duration: 45 Minutes No administr ation times (back 96 hours, ahead 96 hours). ------ALPRAZolam (XANAX) tablet 0.25 mg #[id number] Admin Amount: 1 Tab (1 x 0.25 mg Tab) Ordered Dose: 0.25 mg Route: Ora l Freq: DAILY Start Date: 11/08/18 No administration times (back 96 hours, ahe ad 96 hours).Evelio Carlin MR#: [id number] * Rm: 279-01Ht: 5' 2" Wt: 1 17 lb Code: Prior Iso:Diagnosis:Sepsis due to undetermined organism (HCC) [A41.9]Aller gies: No Known Allergies -------- Current as of: 12/13/18 0132 GI=Given NB=New Bag --cefTRIAXone (ROCEPHIN) 1 g in 0.9% sodium chloride (MBP/ADV) 50 mL M*#[id number] Admin Amount: 1 g Ordered Dose: 1 g Route: IntraVENous Freq: EVERY 24 HOURS Start Date: 11/08/18 Rate: 100 mL/hr Duration: 30 Minutes No administration times (back 96 hours, ahead 96 hours). ------azithromycin (ZITHROMAX) 500 mg in 0.9% sodium chloride 250 mL IV PB #[id number] Admin Amount: 500 mg Ordered Dose: 500 mg Route: IntraVENous Freq: EVERY 24 HOURS Start Date: 7/27/19 Rate: 250 mL/hr Duration: 60 Minutes No administrati on times (back 96 hours, ahead 96 hours). ------LORazepam (ATIVAN) injection 0.5 mg #[id number] Admin Amount: 0.25 mL = 0.5 mg of 2 mg/mL Ordered Dose: 0.5 mg Ro manzanita: IntraVENous Freq: ONCE Start Date: 11/10/18 No administration times (back 96 hours, ahead 96 hours). ------LORazepam (ATIVAN) injection 2 mg #[id number] Admin Amount: 1 mL = 2 mg of 2 mg/mL Ordered Dose: 2 mg Route: Int raVENous Freq: ONCE Start Date: 11/11/18 No administration times (back 96 hours, ahe ad 96 hours). ------LORazepam (ATIVAN) injection 0.5 mg #[id number] Admin Amount: 0.25 mL = 0.5 mg of 2 mg/mL Ordered Dose: 0.5 mg Ro manzanita: IntraVENous Freq: ONCE Start Date: 11/11/18 No administration times (back 96 hours, ahead 96 hours). ------acetaminophen (OFIRMEV) infusion 1,000 mg #[id number] Admin Amount: 100 mL = 1,000 mg of 1,000 mg/100 mL Ordered Dose: 1,000 mg Ro manzanita: IntraVENous Freq: EVERY 6 HOURS Start Date: 11/17/18 Rate: 400 mL/hr Durat ion: 15 Minutes No administration times (back 96 hours, ahead 96 hours). ------HYDROmorphone (DILAUDID) syringe 0.5 mg #[id number] Admin Amount: 0.5 mL = 0.5 mg of 0.5 mg/0.5 mL Ordered Dose: 0.5 mg Ro manzanita: IntraVENous Freq: EVERY 6 HOURS NEEDED Start Date: 11/17/18 No administration times (back 96 hours, ahead 96 hours).Evelio Carlin MR#: [id number] * Rm: 279-01Ht: 5' 2" Wt: 117 lb Code: Prior Iso:Diagnosis:Sepsis due to undetermined organism (HCC) [A41.9]Aller gies: No Known Allergies -------- Current as of: 12/13/18131 GI=Given NB=New Bag --acetaminophen (OFIRMEV) infusion 1,000 mg #[id number] Admin Amount: 100 mL = 1,000 mg of 1,000 mg/100 mL Ordered Dose: 1,000 mg Ro manzanita: IntraVENous Freq: EVERY 6 HOURS Start Date: 11/18/18 Rate: 400 mL/hr Durat ion: 15 Minutes No administration times (back 96 hours, ahead 96 hours). ------piperacillin-tazobactam (ZOSYN) 3.375 g in 0.9% sodium chloride (MBP*#[id number] Admin Amount: 3.375 g Ordered Dose: 3.375 g Route: IntraVENous Freq: EVERY 8 HOURS Start Date: 11/18/18 Rate: 25 mL/hr Duration: 240 Minutes No administra tion times (back 96 hours, ahead 96 hours). ------potassium chloride 10 mEq in 100 ml IVPB #[id number] Admin Amount: 100 mL = 10 mEq of 10 mEq/100 mL Ordered Dose: 10 mEq Ro manzanita: IntraVENous Freq: EVERY 1 HOUR Start Date: 11/19/18 Rate: 100 mL/hr Durat ion: 60 Minutes No administration times (back 96 hours, ahead 96 hours). ------diatrizoate tiffani-diatrizoat sod (RUTHYGASTROVIEW,GASTRO GRAGEORGINA) 66-10 % *#[id number] Admin Amount: 30 mL Ordered Dose: 30 mL Route: Oral Freq: RAD ONCE Start Date: 11/19/18 No administration times (back 96 hours, ahead 96 hours). ------acetaminophen (OFIRMEV) infusion 1,000 mg #[id number] Admin Amount: 100 mL = 1,000 mg of 1,000 mg/100 mL Ordered Dose: 1,000 mg Ro manzanita: IntraVENous Freq: EVERY 6 HOURS Start Date: 11/21/18 Rate: 400 mL/hr Durat ion: 15 Minutes No administration times (back 96 hours, ahead 96 hours). ------acetaminophen (OFIRMEV) infusion 1,000 mg #[id number] Admin Amount: 100 mL = 1,000 mg of 1,000 mg/100 mL Ordered Dose: 1,000 mg Ro manzanita: IntraVENous Freq: EVERY 6 HOURS Start Date: 11/22/18 Rate: 400 mL/hr Dura tion: 15 Minutes No administration times (back 96 hours, ahead 96 hours). ------LORazepam (ATIVAN) tablet 0.5 mg #[id number] Admin Amount: 1 Tab (1 x 0.5 mg Tab) Ordered Dose: 0.5 mg Route: Per G Tube Freq: EVERY BEDTIME Start Date: 11/23/18 No administration times (back 96 hours, ahe ad 96 hours).Evelio Carlin MR#: [id number] * Rm: 279-01Ht: 5' 2" Wt: 1 17 lb Code: Prior Iso:Diagnosis:Sepsis due to undetermined organism (HCC) [A41.9]Aller gies: No Known Allergies -------- Current as of: 12/13/18 013 GI=Given NB=New Bag --vancomycin (VANCOCIN) 1,250 mg in 0.9% sodium chloride 250 mL IVPB #[id number] Admin Amount: 1,250 mg Ordered Dose: 1,250 mg Route: IntraVENous Freq: EVERY 12 H OURS Start Date: 11/24/18 Rate: 125 mL/hr Duration: 120 Minutes No administrati on times (back 96 hours, ahead 96 hours). ------potassium chloride (KLOR-CON) packet for solution 20 mEq #[id number] Admin Amount: 1 Packet (1 x 20 mEq Packet) Ordered Dose: 20 mEq Ro manzanita: Oral Freq: 2 TIMES DAILY WITH MEALS Start Date: 11/25/18 No administration times (back 96 hours, ahe ad 96 hours). ------sodium chloride (NS) flush 5-10 mL #[id number] Admin Amount: 5-10 mL Ordered Dose: 5-10 mL Route: IntraVENous Freq: N EEDED Start Date: 12/12/18 No administration times (back 96 hours, ahead 96 hours). ------piperacillin-tazobactam (ZOSYN) 3.375 g in 0.9% sodium chloride (MBP*#[id number] Admin Amount: 3.375 g Ordered Dose: 3.375 g Route: IntraVENous Freq: NOW Start Date: 12/12/18 Rate: 200 mL/hr Duration: 30 Minutes Administratio n times (back 96 hours, ahead 96 hours): 12/12/18: SudhaNB -----albuterol-ipratropium (DUO-NEB) 2.5 MG-0.5 MG/3 ML #[id number] Admin Amount: 3 mL Ordered Dose: 3 mL Route: Nebulization Freq: NOW Start Date: 12/12/18 Administration times (back 96 hours, ahead 96 hours): 12/12/18: 2014GI -----methylPREDNISolone (PF) (Solu-MEDROL) injection 125 mg #[id number] Admin Amount: 2 mL = 125 mg of 125 mg/2 mL Ordered Dose: 125 mg Route: Int raVENous Freq: NOW Start Date: 12/12/18 Administration times (back 96 hours, ahe ad 96 hours): 12/12/18: 2014GI -----albuterol-ipratropium (DUO-NEB) 2.5 MG-0.5 MG/3 ML #[id number] Admin Amount: 3 mL Ordered Dose: 3 mL Route: Nebulization Freq: NOW Start Date: 12/12/18 Administration times (back 96 hours, ahead 96 hours): 12/12/18: 2037G Evelio Earl MR#: [id number] * Rm: 279-01Ht: 5' 2" Wt: 117 lb Code: Prior Iso:Diagnosis:Sepsis due to undetermined organism ([facility]) [A41.9]Allergies: No Know n Allergies -------- Current as of: 12/13/18 0132 GI=Given NB=New Bag --albuterol-ipratropium (DUO-NEB) 2.5 MG-0.5 MG/3 ML #[id number] Admin Amount: 3 mL Ordered Dose: 3 mL Route: Nebulization Freq: NOW Start Date: 12/12/18 Administration times (back 96 hours, ahead 96 hours): 12/12/18: 2121GI ----- Followed by [facility] (Order count: 2)sodium chloride 0. 9 % bolus infusion 1,000 mL #[id number] Admin Amount: 1,000 mL Ordered Dose: 1,000 mL Route: IntraVENous Freq: ONCE Start Date: 12/12/18 Administration time s (back 96 hours, ahead 96 hours): 12/12/18: 2027NB - Followed by - - - - - - - - - - - - - - - - - - - - - - - - - - - - - - - -sodium chloride 0.9 % bolus infusion 593 mL #[id number] Admin [place] unt: 593 mL Ordered Dose: 593 mL Route: IntraVENous Freq: ONCE Start D ate: 12/12/18 Administration times (back 96 hours, ahead 96 hours): 12/12/18: 2202NB ED Current OP Medicationspantoprazole (PROTONIX) 40 mg granules for oral suspensionSi mg by Per G Tube r oute Daily (before breakfast).Dispense Amount:30 EachStart Date:11/28/2018End Date:Doc. Provider: Mili Dawn DObudesonide (PULMICORT) 0.5 mg/2 mL nbspSi mL by Nebulization route two (2) times a day f or 30 days.Dispense Amount:60 EachStart Date:11/27/2018End Date:12/27/2018Doc. Provider: Patricio Hills DOmultivitamin (ONE A DAY) tabletSig:Take 1 Tab by mouth daily.Dispense Amount:Start Date:End Pan e:Doc. Provider: Provider, Edieclorazepate (TRANXENE) 3.75 mg tabletSig:Take by mouth nightly.Dispens e Amount:Start Date:End Date:Doc. Provider: Provider, Ediealbuterol-ipratropium (DUO-NEB ) 2.5 mg-0.5 mg/3 ml nebuSi mL by Nebulization route every six (6) hours as needed.Dispense Amount:Start Da te:End Date:Doc. Provider: ProviderEdielamoTRIgine (LAMICTAL) 25 mg tabletSig:Take 50 mg by mouth two (2) times a day.Dispense Amount:Start Date:End Date:Doc. Provider: ProviderdEiecinacalcet (SENSIPAR ) 30 mg tabletSig:Take 60 mg by mouth daily.Dispense Amount:Start Date:End Date:Doc. Provider: Provider, Cindi istoricalvalproate (DEPAKENE) 250 mg/5 mL syrupSig:Take 750 mg by mouth two (2) times a day.Dispense Amoun t:Start Date:End Date:Doc. Provider: ProviderEdie ED Prescriptions None on FileFollow-up InformationFollow-up With:Mili Hills DODetails:Comments :Contact Info:[address] [place] [address] [phone] Name Value Range Interpretation Code Description Data Harriett rce(s) Supporting Document(s ) ID Date Data Source [id number] 12/13/2018 01:07:41 AM EDT [facility] TRANSFER - OUT REPORT:Verbal report give n to V. Baby RN(name) on Evelio Carlin being transferredto CCU, Room 279(unit) for routine progression of careReport consisted of patient's Situation, Backgr ound, Assessment andRecommendations(SBAR).Information fro m the following report(s) SBAR, Kardex, ED Summary,Intake/Output, MAR, Recent Resul ts, Med Rec Status, Cardiac Rhythm NSR and AlarmParameters was reviewed with the justin adrian nurse.Lines:Peripheral IV 12/12/18 Left Antecubital (Active)Site Assessment Clean, dry, & intact 12/12/2018 8:09 PMPhlebitis Assessment 0 12/12/2018 8:09 PMInfiltration Assessment 0 12/12/2018 8:09 PMDressing Status Clean, dry, & intact 8:09 PMAlcohol Cap Used Yes 12/12/2018 8:09 PMPeripheral IV 12/12/18 Right Forearm (Active)Site Assessment Clean, dry, & intact 12/12/2018 8:10 PMPhlebiti s Assessment 0 12/12/2018 8:10 PMInfiltration Assessment 0 12/12/2018 8:10 PMDressing Status Clean, dry, & intact 12/12/2018 8:10 PMAlcohol Cap Used Yes 12/12/2018 8:10 P MOpportunity for questions and clarification was provided.Patient transported with: M onitorO2 @ 2 litersRegistered Nurse Name Value Range Interpretation Code Description Data Harriett rce(s) Supporting Document(s ) ID Date Data Source [id number] 12/13/2018 01:04:15 AM [facility] Interpretation Description Data Sup porting Code Source(s) Document(s ) Lactate 5.3 0.4-2.0 Above upper panic [facility] - Good [Moles/volu MMOL/L limits [facility]] in Hospital Serum or Plasma CALLED TO AND READ BACK BYDR ROMERO /Abbey Feldman 0103 12/13/18 JERRY CONCHA ID Date Data Source [id number] 12/12/2018 08:07:31 PM EDT [facility] - G ood [facility] Name Value Range Interpretation Description Data Sup porting Code Source(s) Document(s ) pH of Arterial 7.40 7.35-7.4 [facility] - Good blood [address] [place] [address] Carbon dioxide 55 mmHg 32-48 Above high normal [facility] - Good [Partial [facility] pressure] in Hospital Arterial blood Oxygen 56 mmHg 83-108 Below low normal [facility] - Good [Partial [facility] pressure] in Hospital Arterial blood Carbon 36 19-24 Above high normal [facility] dioxide, total mmol/L Taoist [Moles/volume] Hospital in Arterial blood Bicarbonate 34 21-28 Above high normal [facility] - Go od [Moles/volume] mmol/L [facility] in Arterial Hospital blood Oxygen 90 % 94-98 Below low normal [facility] Good saturation in Taoist Blood Hospital Base excess in 7.5 0-3 Above high normal [facility] - Good Arterial blood mmol/L Taoist by calculation Hospital Body site [facility] Arterial [facility] - Good patency Wrist Taoist artery --pre Hospital arterial puncture NASAL O22 Service comment 75[address] [facility] ID Date Data Source [id number] 12/12/2018 08:03:28 PM EDT [facility] History:Fever. Lethargy.FINDINGS:2 front al views of the chest are compared to the prior study of 11/25/2018.EKG leads overl ie the chest.The cardiac silhouette is normal in size. There may be some streaky singleton es atthe lung bases. Evaluation of the lungs and mediastinal structures is quitelimit ed due to rotation.IMPRESSION:Study quite limited by rotation. Basilar streaks not ed.Signing date/time: 12/12/2018 8:03 PMSigned by: SAMIR RENTERIA Name Value Range Interpretation Code Description Data Harriett rce(s) Supporting Document(s ) ID Date Data Source [id number] 12/14/2018 09:14:50 AM EDT [facility] Name Value Range Interpretation Description Data Sup porting Code Source(s) Document(s ) Service comment [facility] Bacteria [facility] identified in [facility] Unspecified Hospital specimen by Culture ID Date Data Source [id number] 12/12/2018 08:40:17 PM EDT [facility] Name Value Range Interpretation Description Data Sup porting Code Source(s) Document(s ) Color of Urine YEL Abnormal (applies [facility] - to non-numeric Good results) [facility] Appearance of CLEAR [facility] - Urine [facility] Specific gravity 1.035 1.003-1. Above high normal [facility] - of Urine by 030 Good Refractometry [facility] pH of Urine by 6.5 4.6-8.0 [facility] - Test strip Good [facility] Protein 30 mg/dL NEG Abnormal (applies [facility] - [Mass/volume] in to non-numeric Good Urine by Test results) [facility] Glucose NEG [facility] - [Mass/volume] in Good Urine by Taoist Automated test Hospital strip Ketones 5 mg/dL NEG Abnormal (applies [facility] - [Presence] in to non-numeric Good Urine by results) [facility] Automated test [facility] strip Bilirubin.total NEG [facility] - [Presence] in Good Urine [facility] Hemoglobin NEG [facility] - [Presence] in Good Urine by Test [facility] Urobilinogen 0.2 0.2-1.0 [facility] - [Presence] in EU/dL Good Urine by Taoist Automated test [facility] strip Nitrite NEG [facility] - [Presence] in Good Urine by Taoist Automated test Hospital strip Leukocyte NEG Abnormal (applies [facility] - esterase to non-numeric Good [Presence] in results) [facility] Urine by Hospital Automated test strip Leukocytes 0-5 [facility] - [Presence] in Good Urine sediment Taoist by [facility] microscopy Erythrocytes 0-3 [facility] - [#/area] in Good Urine sediment Taoist by [facility] high power field Epithelial cells 0-10 [facility] - [#/area] in Good Urine sediment Taoist by [facility] high power field Bacteria NONE [facility] - [Presence] in Good Urine sediment Taoist by [facility] microscopy Casts [Presence] NONE Abnormal (applies [facility] - in Urine to non-numeric Good sediment by results) [facility] HYALINE Crystals [Presence] in Urine sediment by NONE [facility] - [facility] Light microscopy ID Date Data Source [id number] 12/17/2018 06:43:47 AM EDT [facility] - [facility] Name Value Range Interpretation Description Data Sup porting Code Source(s) Document(s ) Service comment [facility] - [facility] Bacteria [facility] identified in [facility] Unspecified Hospital specimen by Culture ID Date Data Source [id number] 12/17/2018 06:43:45 AM EDT [facility] Value Range Interpretation Description Data Sup porting Code Source(s) Document(s ) Service comment [facility] Hospital Bacteria [facility] identified in [facility] Unspecified Hospital specimen by Culture ID Date Data Source [id number] 12/12/2018 09:36:29 PM EDT [facility] Value Range Interpretation Description Data Sup porting Code Source(s) Document(s ) Lactate 5.5 0.4-2.0 Above upper panic [facility] [Moles/volu MMOL/L limits [facility] me] in Hospital Serum or Plasma CALLED TO AND READ BACK BY DR NICK GARCIA 12/12/18 @213 JULISSA JOHNHRY ID Date Data Source [id number] 12/12/2018 09:04:01 PM EDT [facility] Value Range Interpretation Description Data Sup porting Code Source(s) Document(s ) Troponin 0.00-0.05 [facility] - Good I.cardiac [facility] [Mass/volume Hospital ] in Serum or Plasma (NOTE)The presence of detectable troponi n above the reference rangeindicates myocardial injury which may be due to is chemia,myocarditis, trauma, etc. Clinical correlation is necessary todetermine the significance of this finding. Sequential testing isrecommended to determine if th e typical rise and fall of cTnI isdemonstrated. Note, cardiac troponin-I has a relatively longhalf-life and may be present well after the CK MB has returne d tobaseline. cTnI results in the indeterminate/enriquez zone for myocardial infarction: 0.06 to 0.59 ng/mL cTnI cutoff/range of values consistent with m yocardial infarction: 0.60 to 1.50 ng/mL ID Date Data Source [id number] 12/12/2018 09:04:01 PM EDT [facility] Value Range Interpretation Description Data Sup porting Code Source(s) Document(s ) Creatine 53 U/L 39-308 [facility] kinase Taoist [Enzymatic Hospital activity/volu me] in Serum or Plasma ID Date Data Source [id number] 12/12/2018 09:04:01 PM EDT [facility] Name Value Range Interpretation Description Data Sup porting Code Source(s) Document(s ) Sodium 132 136-145 Below low normal [facility] - Good [Moles/volume] mmol/L [facility]ist in Serum or Hospital Plasma Potassium 4.2 3.5-5.1 [facility] - Good [Moles/volume] mmol/L [facility]ist in Serum or Hospital Plasma Chloride 92 98-107 Below low normal [facility] - Good [Moles/volume] mmol/L [facility]ist in Serum or Hospital Plasma Carbon 34 21-32 Above high normal [facility] - Good dioxide, total mmol/L Taoist [Moles/volume] Hospital in Serum or Plasma Anion gap in 10 10-20 [facility] - Good Serum or mmol/L Taoist Plasma Hospital Glucose 155 74-106 Above high normal [facility] - Good [Mass/volume] mg/dL Taoist in Serum or Hospital Plasma Urea nitrogen 12 mg/dL 7-18 [facility] - Good [Mass/volume] Taoist in Serum or Hospital Plasma Creatinine 0.74 0.70-1.3 [facility] - Good [Mass/volume] mg/dL 0 Taoist in Serum or Hospital Plasma Glomerular >60 [facility] - Good filtration Taoist rate/1.73 sq M Hospital predicted among blacks [Volume Rate/Area] in Serum or Plasma by Creatinine-bas ed formula (MDRD) Glomerular >60 [facility] - Good filtration Taoist rate/1.73 sq M Hospital predicted among non-blacks [Volume Rate/Area] in Serum or Plasma by Creatinine-bas ed formula (MDRD) (NOTE)Estimated GFR is calculated using the Modification of Diet in RenalDisease (MDRD) Study equation, reported for both Americans(GFRAA) and non- Americans (GFRNA), and normalized to 1.7 5l2jrpb surface area. The physician must decide which value applies tothe patient . The MDRD study equation should only be used inindividuals age 18 or older. It has no t been validated for thefollowing: women, patients with serious comorbid co nditions,or on certain medications, or persons with extremes of body size,muscl e mass, or nutritional status. Calcium [Mass/volume] in 9.4 mg/dL 8.5-10.1 [facility] - Good Serum or Plasma [facility] ital Bilirubin.total 0.3 mg/dL 0.2-1.0 [facility] - Good [Mass/volume] in Serum or [facility] Plasma Alanine aminotransferase 13 U/L 13-61 [facility] - Good [Enzymatic activity/volume] [facility] in Serum or Plasma Aspartate aminotransferase 19 U/L 15-37 [facility] - Good [Enzymatic activity/volume] [facility] in Serum or Plasma by With P-5'-P Alkaline phosphatase 69 U/L 45-117 [facility] - G ood [Enzymatic activity/volume] [facility] in Serum or Plasma Protein [Mass/volume] in 6.7 g/dL 6.4-8.2 [facility] - Good Serum or Plasma [facility] ital Albumin [Mass/volume] in 2.0 g/dL 3.5-4.7 Below low normal [facility] - Good Serum or Plasma by [facility] Bromocresol purple (BCP) dye binding method Globulin [Mass/volume] in 4.7 g/dL 1.7-4.7 [facility] - Good Serum by [facility] Albumin/Globulin [Mass 0.4 0.7-2.8 Below low normal [facility] - Good Ratio] in Serum or Plasma [facility] ID Date Data Source [id number] 12/12/2018 08:56:37 PM EDT [facility] Name Value Range Interpretation Description Data Sup porting Code Source(s) Document(s ) Natriuretic 87 pg/mL 0-100 [facility] - [facility] peptide B Taoist [Mass/volume] [facility] in Serum or Plasma ID Date Data Source [id number] 12/12/2018 08:31:40 PM EDT B[facility] Name Value Range Interpretation Description Data Sup porting Code Source(s) Document(s ) Prothrombin 11.2 sec 9.4-11.1 Above high normal [facility] - Go od time (PT) [facility] INR in 1.1 0.8-1.2 [facility] - Good Platelet poor [facility]ist plasma by Hospital Coagulation assay ID Date Data Source [id number] 12/12/2018 08:31:40 PM EDT [facility] - [facility] Name Value Range Interpretation Description Data Sup porting Code Source(s) Document(s ) aPTT in 28.8 SEC 21.0-28. Above high normal [facility] - Good Platelet poor 0 Taoist plasma by Hospital Coagulation assay Therapeutic Range = 42.0-60.0 secs ID Date Data Source [id number] 12/12/2018 08:27:33 PM EDT [facility] - [facility] Name Value Range Interpretation Description Data Sup porting Code Source(s) Document(s ) Leukocytes 11.0 4.8-10.6 Above high normal [facility] - [#/volume] in K/uL Good Blood by [facility] Autom[facility] count Hospital Erythrocytes 3.93 4.70-6.0 Below low normal [facility] - [#/volume] in M/uL 0 Good Blood by [facility] count Hospital Hemoglobin 13.1 14.0-18. Below low normal [facility] - [Mass/volume] in g/dL 0 [facility] Blood [facility] Hematocrit 38.6 % 42.0-52. Below low normal [facility] - [Volume 0 Good Fraction] of Taoist Blood by Hospital Automated count Erythrocyte mean 98.2 FL 81.0-94. Above high normal [facility] - corpuscular 0 Good volume [Entitic Taoist volume] by Hospital Automated count Erythrocyte mean 33.3 PG 27.0-35. [facility] - corpuscular 0 Good hemoglobin Taoist [Entitic mass] Hospital by Automated count Erythrocyte mean 33.9 30.7-37. [facility] - corpuscular g/dL 3 Good hemoglobin [facility] concentration Hospital [Mass/volume] by Automated count Erythrocyte 15.1 % 11.5-14. Above high normal [facility] - distribution 0 Good width [Ratio] by [facility] Autom[facility] count Hospital Platelets 191 K/uL 130-400 [facility] - [#/volume] in Good Blood by [facility] count Hospital Platelet mean 9.6 FL 9.2-11.8 [facility] - volume [Entitic Good volume] in Blood [facility] by Automated Hospital count Segmented 88 % 48.0-72. Above high normal [facility] - neutrophils/100 0 Good leukocytes in Taoist Blood [facility] Lymphocytes/100 7 % 18.0-40. Below low normal [facility] - leukocytes in 0 Good Blood [facility] Monocytes/100 5 % 2.0-12.0 [facility] - leukocytes in [facility] Eosinophils/100 0 % 0.0-7.0 [facility] - leukocytes in [facility] Basophils/100 0 % 0.0-3.0 [facility] - leukocytes in [facility] Segmented 9.5 K/UL 1.5-6.6 Above high normal [facility] - neutrophils Good [#/volume] in [facility] Lymphocytes 0.8 K/UL 1.5-3.5 Below low normal [facility] - [#/volume] in [facility] Monocytes 0.6 K/UL 0.0-1.0 [facility] - [#/volume] in [facility] Eosinophils 0.0 K/UL 0.0-0.7 [facility] - [#/volume] in [facility] Basophils 0.0 K/UL 0.0-0.1 [facility] - [#/volume] in [facility] Differential [facility] - cell count [facility] Immature 1 % 0.0-2.0 [facility] - granulocytes/100 [facility] leukocytes in [facility] Automated count ID Date Data Source [id number] 12/12/2018 07:31:45 PM EDT [facility] Name Value Range Interpretation Description Data Sup porting Code Source(s) Document(s ) Glucose 195 MG/DL 65-110 Above high normal [facility] [Mass/volume] [facility] Automated test strip ID Date Data Source [id number] 12/12/2018 07:12:01 PM EDT [facility] Pt BIBA from [place] for lethargy and fever Name Value Range Interpretation Code Description Data Harriett rce(s) Supporting Document(s ) ID Date Data Source [id number] 12/09/2018 03:11:12 PM EDT [facility] Physician Discharge SummaryPatient ID:Lina [id number] date: 11/07/2018Discharge date: 11/27/2018 Discharge Diagnoses: Principal Diagnosis <principal problem not specified> Active Problems: COPD (chronic obstructive pul monary disease) ([facility]) (11/08/2018) Acute respiratory distress (11/08/2018) Pneumo freddy (11/08/2018) COPD exacerbation ([facility]) (11/08/2018) Sepsis POAMetabolic Acidosis Bilateral aspiration PneumoniaDysphagia Surgical Gastrostomy Tube PlacementCOPD ExacerbationGERD Post op IleusConstipationInfected wound at peg s ite Epilepsy Hyperparathyorid, unspecified Severe intellectual disability Anxiety d isorderConsults: Pulmonary/Intensive care, ID, GI and General SurgeryHospital Cours e: Patient was transferred to the ED from his snf for further evalof hypoxia, wheezi ng, cough and use of his accessory muscles. Pt had an O2SAT of 84 % on ra, that impr kathie to 92 % on 4L. He was treated with Duo Neb andSolu- Medrol 40 mg IM.Upon arriv al to the ED, the pt was placed on BIPAP.Pulmonary embolus was ruled out on CTA chest. There was finding of decreasedsize of the right hemithorax fr om chronic scarring and retraction withmediastinal shift left to right. Th ere was finding of B/L pneumonia. Low lungvolumesLactic acidosis as high as 4. 1.The pt has h/o severe mental disability and is unable to provide a history. Malini has medical history of COPD, requiring intermittent O2 via NC, large hh,GERD, a spiration pneumonia, dysphagia, parkinson disease, epilepsy, (focal),(partial) idi opathic epilepsy, not intractable. Severe intellectual disability,hyperparathyroid unspecified, personal h/o pulmonary embolus, anxiety disorder,kyphosis and schizophre freddy.He was admitted with encounter diag of Sepsis, POA, Acute hypercapnea andhypoxi c respiratory failure, metabolic acidosis, bilateral aspiration pneumonia,and acute copd exacerbation. Also, diag dysphagia, Post op Ileus, constipation, seizure, la rge hh,, gerd and severe intellectual disability.The patient had unsuccessful attempts with several swallow evals. He wastreated with iv antibiotics, steroids , duo nebs, bipap, prn and nightly. Mittsrestraints were used to keep on the O2 NC. He was seen by gi for pegplacement in the past and at present. GI reporting that the anatomy for pegplacement was not optimal because stomach lying behind the heart. Surgicalconsult was requested. Pt was seen by Dr Kaye. The pt underwent surg ical PEGplacement and cut toe and finger nails on 11/17/2018. Postop course was no mikel forrising WBCs and acute respiratory distress. Pt was transferred to CCU. His ivabx were switched by ID, restarted on iv steroids and BIPAP. Pt was found withnew infiltrate LLL and RLL. The patient respiratory status improved. He wasfound a post op ileus. Peg was placed to LIS. Serial AXR followed. TF restartedat low rate and tolerated. Noted for wound marvel peg site with serosanguinousdrainage. Preven a dressing and wound vac was applied. Plan to DC VAC ondischarge and leave Prevena dressing in place with suction. The Prevenadressing stays in place with suct ion x 7 days from application 11/24/2018).. Atthat time the suction will stop and Pr evena discarded.At the time of discharge pt was off iv antibiotics and steroids. The re was nodrainage from the wound.He was tolerating TF. Prevena dressing in place at discharge surgery will followpt outpatient.Disposition: SNFPatient Instr uctions:Cannot display discharge medications since this patient is not currentlyadmit mikel.Activity: PT/OT Eval and TreatDiet: PEG feeding at 55 ml/hrFollow-up with Dr Saadia caballero in 2 days for readmission.Signed:Renae Gonzalez 20185:13 PM Name Value Range Interpretation Code Description Data [facility] rce(s) Supporting Document(s ) ID Date Data Source [id number] 11/27/2018 08:50:08 PM EDT [facility] called requesting informatio n on discharged patient. Name Value Range Interpretation Code Description Data Harriett rce(s) Supporting Document(s ) ID Date Data Source [id number] 11/27/2018 05:00:32 PM EDT [facility] Progress NotePatient: Evelio Abrahamalexandratammy Sex: male DOA: 11/07/2018Date of : 1950 Age: 68 y.o. :[id number]:Reyes Carlin is 68 y.o. male with severe intellectual disability and unableto pro vide a history. He was seen and examined at bedside on 11/12/18.He failed the bedside swallow re eval and the staff had unsuccessful attemptsat insertion of ngt . He is breathing better.Pt is being treated for Bilateral Pneumonia - HAP, COPD exac erbation, BilateralAtelectasis, Acute Hypercapnia, Hypoxia respiratory failure . Also diag ofDysphagia , Seizure, Hyperparathyroid,unspecified and Intelle ctual disabilityare pertinent to this visit.GI consult was reviewed. 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 Pupils are equalNeck: Supple, symmetrical, no adenopathy, no carotid bruit and no JVD.Lungs: Clear to auscultation bilaterally. No Wheezing o r Rhonchi. No rales.Chest wall: No Accessory muscle use.Heart: Regular ra te and rhythm, no murmur, or rubAbdomen: Soft, non-tender. Not distended. Bowel sounds normal. No massesExtremities: Extremities normal, atraumatic, No cyano sis. No edema. No clubbingSkin: No rashes or lesions. Not JaundicedLymph n odes: Cervical, supraclavicular normal.Psych: Not agitated.Neurologic: EOMs intact. N o facial asymmetry. No aphasia or slurred speech. Nonambulatory, Alert and oriente dIntake and Output:Current Shift: No intake/output data recorded.Last three s hifts: No intake/output data recorded.Lab/Data Reviewed:Recent Days:R ecent Labs 11/10/1904WBC 11.7* 14.4*HGB 14.9 13.5*HCT 43.4 40.1*P LT 238 227Recent Labs 11/11/1905NA 142 141 141K 3.8 4.0 4.0CL 104 106 103CO2 28 28 32GLU 79 100 102BUN 15 15 17CREA 0.49* 0.60* 0.55 *CA 9.0 9.0 9.3MG 1.8 -- --PHOS 2.9 -- --ALB 3.2* 3.0* 2.9*TBILI 0.6 0.5 0.3SGO T 43* 29 25ALT 30 23 17No results for input(s): PH, PCO2, PO2, HCO3, FIO2 in t he last 72 hours.Cta Chest W Or W Wo ContResult Date: 11/08/2018Examination: CTA Chest ? PE angiography History: Hypoxia; rule out pneumoniaversus pulmonary embol ism Priors: None Technique: Low-dose, multiplanar,helical CTA chest was perfor med with bolus IV injection from lung apices tobases. 3D-reformatted images were obt ained and reviewed on a dedicated viewingworkstation and directly supervis ed. Contrast: A total of 71 mL of Isovue-370was administered intravenously for this procedure. Findings: No evidence ofpulmonary embolism is seen. There is d ecreased size of the right hemithorax fromchronic scarring and retraction with mediastinal shift left to right.Additional area of consolidation is seen in the rig ht lower lobe and suggestssuperimposed pneumonia with subsegmental atelectasis. Subsegmental atelectasisis also noted in the left lung base, with pleural parench ymal scarring. Lowlung volumes are seen. No pneumothorax seen. Aorta normal in calib er withoutaneurysm or dissection. Mediastinum no adenopathy. Mediastinal shift is see n inthe left and right as a result of chronic changes in the right hemithorax. Heart shows no chamber enlargement or pericardial effusion. No acute fractures seen in the bony thorax, sternum, manubrium and rib cage. Multiple compressiondefor mities are seen in the mid and lower thoracic spine, with superimposedspondyloarthropa thy. Cannot exclude acute fracture.Impression: No evidence of pul monary embolism Right lower lobe pneumoniasuggested. Incidental scarring and retraction in the right hemithorax fromremote/chronic inflammatory disease and/or trauma. Bibasilar subsegmentalatelectasis. Report Electron ically Signed By: Pawel Zafar M.D. -11/08/2018 12:40 AMXr Chest PortResult D ate: 11/07/2018XR CHEST PORT CLINICAL INDICATION PROVIDED:. "sob." COMPARISON: . 09/26/2015.FINDINGS:. The pericardial/cardiac silhouette is enlarg ed in the transversedimension. There is no pulmonary vascular congestion or interst itial edema.Linear density in the left lung base and faint densities in the right mi d tolower lung likely represent atelectasis. There is no lobar consolidation oreffusi on. There is no pneumothorax.IMPRESSION:. Bilateral lower lung atelectasis. No donna dence of consolidation oreffusion.Medications reviewedCurrent Facility-Administered Al dicationsMedication Dose Route Frequency albuterol-ipratropium (DUO-NEB) 2.5 MG-0 .5 MG/3 ML 3 mL Nebulization Q6H RT methylPREDNISolone (PF) (SOLU-MEDROL) in jection 20 mg 20 mg IntraVENous Q12H LORazepam (ATIVAN) injection 0.5 mg 0.5 mg IntraVENous Q12H PRN 0.9% sodium chloride 1,000 mL with mvi, adult no.4 w ith vit K 10 mL, [id number] mg, folic acid 1 mg infusion IntraVENous Q24H dextrose 5 % - 0.45% NaCl infusion 50 mL/hr IntraVENous CONTINUOUS heparin (porcine ) injection 5,000 Units 5,000 Units SubCUTAneous Q12H albuterol-ipratropium (DUO-NEB) 2.5 MG-0.5 MG/3 ML 3 mL Nebulization Q4H PRN cinacalcet (SENSIP AR) tablet 60 mg 60 mg Oral DAILY lamoTRIgine (LaMICtal) tablet 50 mg 50 mg Oral BID ALPRAZolam (XANAX) tablet 0.25 mg 0.25 mg Oral DAILY cefTRIAXone (FEDE EPHIN) 1 g in 0.9% sodium chloride (MBP/ADV) 50 mL MBP 1 gIntraVENous Q24H azithrom ycin (ZITHROMAX) 500 mg in 0.9% sodium chloride 250 mL IVPB 500 mgIntraVENous Q24H budesonide (PULMICORT) 500 mcg/2 ml nebulizer suspension 500 mcg Nebulizati onBID RTAssessment/Plan:Hospital Problems Never Reviewed Codes Class Noted P OA COPD (chronic obstructive pulmonary disease) ([facility]) ICD-10-CM: J44.9ICD-9-CM: 496 11/08/2018 Unknown Acute respiratory distress ICD-10-CM: R06.03ICD-9-CM: 518. 82 11/08/2018 Unknown Pneumonia ICD-10-CM: J18.9ICD-9-CM: 486 11/08/2018 Unknown CO PD exacerbation ([facility]) ICD-10-CM: J44.1ICD-9-CM: 491.21 11/08/2018 Unknown Assessment:Acute Hypercapnia, Hypoxic respiratory failureMetabolic acidosis- r esolvingPneumoniaAcute COPD exacerbationSeizureH/O Large Hiatal Arpit iaGERDLeukocytosis likely steroid inducedSevere intellectual disabilityAnx iety DisorderChronic Schizophrenia- Unspecified Plan:Cont O2NC/Bipap per pul mIV fluids steroids DC today per pulmnebsSwallow re evalCont iv zithro an d rocephinF/u culturesdvt prophylaxis with heparin subcutCont iv fluids w mvi, foli c acid, thiamineD/w pt uncle (ENT physician) per report , who is request ngt insertio n fornutrition.Liliane Gonzalez 2018Time: 9:34 PM Name Value Range Interpretation Code Description Data Harriett rce(s) Supporting Document(s ) ID Date Data Source [id number] 11/27/2018 03:56:32 PM EDT [facility] - [facility] Patient connected to prevena wound vac a s ordered. patient will be dischargedwith urinary cath as per Dr. Hills Name Value Range Interpretation Code Description Data Harriett rce(s) Supporting Document(s ) ID Date Data Source [id number] 11/27/2018 02:19:00 PM EDT [facility] - [facility] PULMONARY/ CCM- Consult NotePatient: Ivelisse Carlin Sex: male DOA: 11/07/2018Date of : 1 Age: 68 y.o. LOS: LOS: 19 daysHPI: step down.Evelio Carlin is a 68 y.o. male who has been seen for resp failure.7:31 PM: Evelio Carlin is a 68 y.o. male with h/o COPD, GERD,hyperparathyroidism, mental retarda tion, Pneumonia, pulmonary embolism, andschizophrenia who presents to the ED via EMS for shortness of breath andwheezing. Per triage note patient was given Duo-Ne b and Solu-Medrol 40 mg IM atfacility. 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 Authoriz ing Providermultivitamin (ONE A DAY) tablet Take 1 Tab by mouth daily. Yes Provide r,Historicalclorazepate (TRANXENE) 3.75 mg tablet Take by mouth nightly. Yes Pro vider,Historicalalbuterol-ipratropium (DUO-NEB) 2.5 mg-0.5 mg/3 ml nebu 3 mL b y Nebulizationroute every six (6) hours as needed. Yes Provider, HistoricallamoTR Igine (LAMICTAL) 25 mg tablet Take 50 mg by mouth two (2) times a day.Yes Provider, Historicalcinacalcet (SENSIPAR) 30 mg tablet Take 60 mg by mouth daily. Yes Provide r,Historicalvalproate (DEPAKENE) 250 mg/5 mL syrup Take 750 mg by mouth two (2) times a day.Provider, HistoricalNo Known AllergiesHistory reviewed. No pertinent surgical history.History reviewed. No pertinent family history.Social HistoryS ocioeconomic History Marital status: SINGLE Spouse name: Not on file Number of chil dren: Not on file Years of education: Not on file Highest education level: Not on fi leTobacco Use Smoking status: Never Smoker Smokeless tobacco: Never UsedSubstance a nd Sexual Activity Alcohol use: No Drug use: NoReview of SystemsPertinent items are noted in the History of Present Illness.Physical Exam:Current medication s:Current Facility-Administered Medications: pantoprazole (PROTONIX) granules for or al suspension 40 mg, 40 mg, Per TINA Veloz Banner, Kenneth M, MD, 40 mg at 11/27/18 0832 albuterol-ipratropium (DUO-NEB) 2.5 MG-0.5 MG/3 ML, 3 mL, Nebulization, Q6HW ART, Stella Hamilton MD, 3 mL at 11/27/18 1338 valproate (DEPACON) 250 mg in 0.9 % sodium chloride 50 mL IVPB, 250 mg,IntraVENous, Q12H, Letty Kaye M D, Last Rate: 50 mL/hr at 11/27/18 0929,250 mg at 11/27/18 0929 albuterol-ipratrop ium (DUO-NEB) 2.5 MG-0.5 MG/3 ML, 3 mL, Nebulization, Q4HPRN, Letty Kaye M D, 3 mL at 11/19/18 0602 cinacalcet (SENSIPAR) tablet 60 mg, 60 mg, Oral, DA PIERRE, Letty Kaye MD,60 mg at 11/27/18 0832 budesonide (PULMICORT) 500 mcg/2 ml nebulizer suspension, 500 mcg,Nebulization, BID RT, Artemio Kaye MD, 500 mcg at 11/27/18 0759DataVisit VitalsBP 118/63 (BP 1 Location: Left arm , BP Patient Position: At rest)Pulse 73Temp 97.1 F (36.2 C)Resp 20Ht 5' 2" (1.575 m)Wt 53.3 kg (117 lb 6.4 oz)SpO2 92%BMI 21.47 kg/m Intake and Output:Date 11/26/18 070 0 - 11/27/18 0659 11/27/18 0700 - 11/28/18 0659Shift 2497-7919 6420-4794 24 Hour To krystian 7807-1572 5683-2307 24 Hour TotalINTAKEI.V.(mL/kg/hr) 50(0.1) 50(0.1 ) 100(0.1) Volume (valproate (DEPACON) 250 mg in 0.9% sodium chloride 50 mL IVPB) 5 0 73718NW/GT 1310 1125 2435 Water Flush Volume (mL) (PEG/Gastrostomy Tube ) 125 125 250 Medication Volume (PEG/Gastrostomy Tube 11/17/18) 150 150 Intake (ml) (PEG/Gastrostomy Tube 11/17/18) 1035 1000 2035Shift Total(mL/kg) 1360(22 .9) 1175(19.8) 2535(42.7)OUTPUTUrine(mL/kg/hr) 1700(2.4 ) 1700(1.2) 1500 1500 Urine Voided 1500 1500 Urine Output (mL) (Urinary Cathet er 11/19/18 Lozano) 1700 1700Shift Total(mL/kg) 1700(28.6) 1700(28.6) 1500 (28.2) 1500(28.2)NET -340 1175 835 -1500 -1500Weight (kg) 59.4 59.4 59.4 53.3 53. 3 53.3Pulse OX:SpO2 Readings from Last 6 Encounters:11/27/18 92%09/26/15 96%@LAST SAO2(6)@PHYSICAL EXAM:General: Lethargic,responding.Head: Normocephal ic, without obvious abnormality, atraumatic.Eyes: Conjunctivae clear, a nicteric sclerae. Pupils are equalNose: Nares normal. No drainage or sinus tende rness.Throat: Lips, mucosa, and tongue normal. No ThrushNeck: Supple, symmetr ical, no adenopathy, thyroid: non tender no carotid bruit and no JVD.Back: Symmet rodger, No CVA tenderness.Lungs: Scattered rhonchi,Chest wall: No tenderness or de formity. No Accessory muscle use.Heart: Regular rate and rhythm, no murmur, rub or gallop.Abdomen: Soft, non-tender. Not distended. Bowel sounds normal. No mass esExtremities: Extremities normal, atraumatic, No cyanosis. No edema. No c lubbingSkin: Texture, turgor normal. No rashes or lesions. Not JaundicedLymph n odes: Cervical, supraclavicular normal.Psych: Good insight. Not depressed. Not anxi ous or agitated.Neurologic: EOMs intact. No facial asymmetry. No aphasia or slurred speech.Most recent labs:Recent Labs 11/25/1908WBC 11.7* 13.7* HGB 13.5* 14.9HCT 39.4* 42.8PLT 234 206Recent Labs 11/26/190411/25/18 0955 NA 139 -- 142 --K 4.2 -- 3.4* --CL 99 -- 99 --CO2 36* -- 3 8* 43*GLU 72* -- 102 --BUN 10 -- 11 --CREA 0.31* -- 0.41* --CA 9.9 -- 9 .3 --MG 2.0 1.8 1.9 --ALB -- -- 2.7* --TBILI -- -- 0.6 --SGOT -- -- 15 --ALT -- -- 25 --Recent Labs PH 7.50*PCO2 53*PO2 69*HCO3 41*ABG:Recent Labs PH 7.50*PCO2 53*PO2 69*HCO3 41*Cultures:No results fo und for: SDESLab ResultsComponent Value Date/Time Culture result: NO GROWTH 2 DA YS 11/20/2018 09:00 AM Culture result: NO GROWTH 5 DAYS 11/07/2018 08:10 PM Cultur e result: NO GROWTH 5 DAYS 11/07/2018 08:00 PMImages:Cta Chest W Or W Wo ContResult Date: 11/08/2018Examination: CTA Chest ? PE angiography History: Hypoxia; rule out p neumoniaversus pulmonary embolism Priors: None Technique: Low-dose, multiplanar,h elical CTA chest was performed with bolus IV injection from lung apices tobases. 3D- reformatted images were obtained and reviewed on a dedicated viewingworkstation and di rectly supervised. Contrast: A total of 71 mL of Isovue-370was administered intravenou sly for this procedure. Findings: No evidence ofpulmonary embolism is seen. T here is decreased size of the right hemithorax fromchronic scarring and retr action with mediastinal shift left to right.Additional area of consolidation i s seen in the right lower lobe and suggestssuperimposed pneumonia with subs egmental atelectasis. Subsegmental atelectasisis also noted in the left jorge g base, with pleural parenchymal scarring. Lowlung volumes are seen. No pneumothora x seen. Aorta normal in caliber withoutaneurysm or dissection. Mediastin um no adenopathy. Mediastinal shift is seen inthe left and right as a result of chr onic changes in the right hemithorax.Heart shows no chamber enlargement or pericard ial effusion. No acute fracturesseen in the bony thorax, sternum, manubrium and rib cage. Multiple compressiondeformities are seen in the mid and lower thoracic spine , with superimposedspondyloarthropathy. Cannot exclude acute fracture.Impression : No evidence of pulmonary embolism Right lower lobe pneumoniasuggested. Incidenta l scarring and retraction in the right hemithorax fromremote/chronic inflammato ry disease and/or trauma. Bibasilar subsegmentalatelectasis. Report Electron ically Signed By: Pawel Zafar M.D. -11/08/2018 12:40 AMXr Chest PortResult D ate: 11/07/2018XR CHEST PORT CLINICAL INDICATION PROVIDED:. "sob." COMPARISON: . 09/26/2015.FINDINGS:. The pericardial/cardiac silhouette is enlarg ed in the transversedimension. There is no pulmonary vascular congestion or interst itial edema.Linear density in the left lung base and faint densities in the right mi d tolower lung likely represent atelectasis. There is no lobar consolidation oreffusi on. There is no pneumothorax.IMPRESSION:. Bilateral lower lung atelectasis. No donna dence of consolidation oreffusion.Assessment/PlanActive Problem s: COPD (chronic obstructive pulmonary disease) (HCC) (11/08/2018) Acute respir atory distress (11/08/2018) Pneumonia (11/08/2018) COPD exacerbation (HCC) () Acute resp failure combined, pneumonia acute copd exacerbation pe rul ed out.PLAN,Monitoring,bipap prn for resp distressIvabx as per id,Iv steroids tape redbipap prn and at night.NebS/p peg,feeding started.D/w nursing staff.Pantera Munson 2018The billing code submitted in association with this evaluation also includes thetime to review patient's prior records, communicate with the physician team,obtain corroborating data, and discuss the risk and benefits of the proposedman agement plan with the patient and their family >30 minutes. Name Value Range Interpretation Code Description Data [facility] rce(s) Supporting Document(s ) ID Date Data Source [id number] 11/27/2018 02:07:14 PM EDT [facility] Care Management InterventionsPCP Verifie d by CM: YesMode of Transport at Discharge: S([facility] 4 pm)Transition of Care Consult (CM Consult): Discharge PlanningMyChart Signup: NoDischarge Dura ble Medical Equipment: NoPhysical Therapy Consult: NoOccupational Therapy Consult: NoSpeech Therapy Consult: NoCurrent Support Network: Nursing Facility([place])Co nfirm Follow Up Transport: FamilyPlan discussed with Pt/Family/Caregiver: YesF reedom of Choice Offered: YesVeteran Resource Information Provided?: RefusedDischarge LocationDischarge Placement: senior living facility([place])Case Management Dis charge Note:Pt has been medically cleared and scheduled for discharge to [facility] at 4 pm.Pt sister Michell [phone] is aware and in agree ment. MD and RN are aware.Liaison is aware and in agreement. CM remains available f or any furtherdischarge needs. Updated YUNA faxed to [place] Name Value Range Interpretation Code Description Data Harriett rce(s) Supporting Document(s ) ID Date Data Source [id number] 11/27/2018 01:57:53 PM EDT [facility] YUAN updated with Vac instructions. Name Value Range Interpretation Code Description Data Harriett rce(s) Supporting Document(s ) ID Date Data Source [id number] 11/27/2018 12:50:21 PM EDT [facility] ID Progress Note11/27/2018Subjective:Awak e non verbalAfebrileWbc trending down..Unable to provide any historyObjective:Vitals:P atient Vitals for the past 24 hrs: BP Temp Pulse Resp SpO2 Vofrlo33/15/19 0801 - - - - 92 % -11/27/18 0754 118/63 97.1 F (36.2 C) 73 20 92 % -11/27/18 0728 - - - - - 5 3.3 kg (117 lb 6.4 oz)11/27/18 0435 129/67 98.3 F (36.8 C) (!) 58 20 91 % -2099 - - - - 94 % -11/26/182010 94/71 98.7 F (37.1 C) 78 20 94 % -11/26/18 1 607 102/61 97.3 F (36.3 C) 98 18 90 % -Tmax: Temp (24hrs), Av.9 F (36.6 C), Min:97.1 F (36.2 C), Max:98.7 F(37.1 C)Physical Exam:General: Awake non verb al cooperative, no distressEyes: Conjunctivae/corneas clear. PERRLNeck: S upple, symmetrical, trachea midline, no adenopathyLungs: Bilateral breath soun ds with basal crackles..Heart: Regular rate and rhythm, S1, S2 normalAbdomen: Soft , non-tender. Bowel sounds normal. No masses, Noorganomegaly.peg+wound dressing.Back: No CVA tenderness.Extremities: Extremities normal, atraumatic, no cyano sis or edema.Pulses: 2+ and symmetric all extremities.Skin: Skin color, texture, t urgor normal. No rashes or lesionsLymph nodes: Cervical, supraclavicular, and ax illary nodes normal.Current Facility-Administered MedicationsMedicat ion Dose Route Frequency pantoprazole (PROTONIX) granules for oral suspension 40 mg 40 mg Per G TubeACB albuterol-ipratropium (DUO-NEB) 2.5 MG-0 .5 MG/3 ML 3 mL Nebulization Q6HWA RT valproate (DEPACON) 250 mg in 0.9% sodiu m chloride 50 mL IVPB 250 mgIntraVENous Q12H albuterol-ipratropium (DUO-NEB) 2.5 MG- 0.5 MG/3 ML 3 mL Nebulization Q4H PRN cinacalcet (SENSIPAR) tablet 60 mg 60 m g Oral DAILY budesonide (PULMICORT) 500 mcg/2 ml nebulizer suspension 500 mcg N ebulizationBID RTLabs:Recent Labs 11/25/1908WBC 11.7* 13.7* HGB 13.5* 14.9PLT 234 206BUN 10 11CREA 0.31* 0.41*SGOT -- 15AP -- 99TBILI -- 0. 6Cultures:Lab ResultsComponent Value Date/Time Culture result: NO GROWTH 2 DA YS 11/20/2018 09:00 AM Culture result: NO GROWTH 5 DAYS 11/07/2018 08:10 PM Cultur e result: NO GROWTH 5 DAYS 11/07/2018 08:00 PMRadiology:No results found.Assessment: Sepsis POA Aspiration pneumonia completed antibiotic therapy. Dysphagia s/p peg p lacement COPD S/p PEG placement Ileus Pleural effusionPlan:1. Continue current treatment..Pantera Beauchamp 201812:48 PM Name Value Range Interpretation Code Description Data Harriett rce(s) Supporting Document(s ) ID Date Data Source [id number] 11/27/2018 11:47:44 AM EDT [facility] Progress NotePatient: Evelio Carlin SSN: [id number] of : 1950 Age: 68 y.o. Sex: maleAdmit Date: 11/07/201810 Days Post-OpProcedure: Procedure(s):GASTROSTOMY TUBE PLACEMENT and cut toe and finger nailsSubjective:Patient Alert awake non verbalObjective:Visit VitalsBP 118/63 (BP 1 Location: Left arm, BP Patient Position: At rest)Pulse 73Temp 97.1 F (36.2 C)Resp 20Ht 5' 2" (1.575 m)Wt 53.3 kg (117 lb 6 .4 oz)SpO2 92%BMI 21.47 kg/m Temp (24hrs), Av.9 F (36.6 C), Min:97.1 F (36.2 C), Max:98.7 F (37.1 C)Physical Exam:ABDOMEN: soft, non-tender. Bowel so unds normal. No masses, no organomegaly,Prevena is working properly and there has been no drainage for 24 hoursData Review: reviewed Nursing docu mentation and I & OLab Data Reviewed:CBC w/Diff Recent Labs [id number] 11.7* 13.7*HGB 13.5* 14.9HCT 39.4* 42.8MCV 97.0* 96.2*PLT 234 206GRANS 68 6 9LYMPH 25 24EOS 2 2Chemistry Recent Labs 11/25/19086GL U 72* 102 --NA 139 142 --K 4.2 3.4* --CL 99 99 --CO2 36* 38* 43*BUN 10 11 --CRE A 0.31* 0.41* -- Recent Labs 11/25/19085CA 9.9 9.3ALB -- 2.7*TBILI -- 0.6AP -- 99SGOT -- 15ALT -- 25Coagulation No results for input(s): P TP, INR, APTT in the last 72 hours.No lab exists for component: INREXTAssessment:H ospital Problems Never Reviewed Codes Class Noted POA COPD (chronic obstructiv e pulmonary disease) (HCC) ICD-10-CM: J44.9ICD-9-CM: 496 11/08/2018 Unknown Ac manzanita respiratory distress ICD-10-CM: R06.03ICD-9-CM: 518.82 11/08/2018 Unknow n Pneumonia ICD-10-CM: J18.9ICD-9-CM: 486 11/08/2018 Unknown COPD exacerbation (HCC ) ICD-10-CM: J44.1ICD-9-CM: 491.21 11/08/2018 UnknownPlan/Recommendations/Medical Deci elio Making:Steroids have been dc'd,IV antibiotics have been dc'dHave instructe d today's nurse to change canister to the Prevena canister [place] arrangements to see patient in [place] on Saturday to jigna ve Prevenaand examine the incisionSigned By: Letty Kaye MD November 27, 2018 Name Value Range Interpretation Code Description Data [facility] rce(s) Supporting Document(s ) ID Date Data Source [id number] 11/27/2018 07:59:47 AM EDT [facility] Bedside and Verbal shift change report g iven to Bernarda Parada RN (oncoming nurse)by Lelo Parks RN (offgoing nurse). Report included the following information SBAR, Kardex, MARand Recent Results. Name Value Range Interpretation Code Description Data [facility] rce(s) Supporting Document(s ) ID Date Data Source [id number] 11/27/2018 07:17:42 AM EDT [facility] Name Value Range Interpretation Description Data Sup porting Code Source(s) Document(s ) Sodium 139 136-145 [facility] - [Moles/volume] mmol/L Community in Serum or Hospital Plasma Potassium 4.2 3.5-5.1 [facility] - [Moles/volume] mmol/L Community in Serum or Hospital Plasma Chloride 99 98-107 [facility] - [Moles/volume] mmol/L Community in Serum or Hospital Plasma Carbon 36 21-32 Above high normal [facility] - dioxide, total mmol/L Community [Moles/volume] Hospital in Serum or Plasma Anion gap in 8 mmol/L 10-20 Below low normal [facility] - Serum or Community Plasma Hospital Glucose 72 mg/dL 74-106 Below low normal [facility] - [Mass/volume] Community in Serum or Hospital Plasma Urea nitrogen 10 mg/dL 7-18 [facility] - [Mass/volume] Community in Serum or Hospital Plasma Creatinine 0.31 0.70-1.3 Below low normal [facility] - [Mass/volume] mg/dL 0 Community in Serum or Hospital Plasma Glomerular >60 [facility] - filtration Community rate/1.73 sq M Hospital predicted among blacks [Volume Rate/Area] in Serum or Plasma by Creatinine-bas ed formula (MDRD) Glomerular >60 [facility] - filtration Community rate/1.73 sq M Hospital predicted among non-blacks [Volume Rate/Area] in Serum or Plasma by Creatinine-bas ed formula (MDRD) (NOTE)Estimated GFR is calculated using the Modification of Diet in RenalDisease (MDRD) Study equation, reported for both Americans(GFRAA) and non- Americans (GFRNA), and normalized to 1.7 7t5jhtf surface area. The physician must decide which value applies tothe patient . The MDRD study equation should only be used inindividuals age 18 or older. It has no t been validated for thefollowing: women, patients with serious comorbid co nditions,or on certain medications, or persons with extremes of body size,muscl e mass, or nutritional status. Calcium [Mass/volume] in Serum or 9.9 mg/dL 8.5-10.1 [facility] Hospital Plasma ID Date Data Source [id number] 11/27/2018 07:13:17 AM EDT [facility] Name Value Range Interpretation Description Data Sup porting Code Source(s) Document(s ) Magnesium 2.0 mg/dL 1.6-2.6 [facility] - [Mass/volume] Community in Serum or Hospital Plasma ID Date Data Source [id number] 11/27/2018 06:39:47 AM EDT [facility] Name Value Range Interpretation Description Data Sup porting Code Source(s) Document(s ) Leukocytes 11.7 4.8-10.6 Above high normal [facility] - [#/volume] in K/uL [facility] Blood by Hospital Automated count Erythrocytes 4.06 4.70-6.0 Below low normal [facility] - [#/volume] in M/uL 0 Community Blood by Hospital Automated count Hemoglobin 13.5 14.0-18. Below low normal [facility] - [Mass/volume] in g/dL 0 [facility] Blood [facility] Hematocrit 39.4 % 42.0-52. Below low normal [facility] - [Volume 0 Community Fraction] of Hospital Blood by Automated count Erythrocyte mean 97.0 FL 81.0-94. Above high normal [facility] - corpuscular 0 [facility] volume [Entitic Hospital volume] by Automated count Erythrocyte mean 33.3 PG 27.0-35. [facility] - corpuscular 0 [facility] hemoglobin Hospital [Entitic mass] by Automated count Erythrocyte mean 34.3 30.7-37. [facility] - corpuscular g/dL 3 [facility] hemoglobin Hospital concentration [Mass/volume] by Automated count Erythrocyte 15.1 % 11.5-14. Above high normal [facility] - distribution 0 [facility] width [Ratio] by Hospital Automated count Platelets 234 K/uL 130-400 [facility] - [#/volume] in [facility] Blood by Hospital Automated count Platelet mean 9.0 FL 9.2-11.8 Below low normal [facility] - volume [Entitic Community volume] in Blood Hospital by Automated count Segmented 68 % 48.0-72. [facility] - neutrophils/100 0 Community leukocytes in Hospital Blood Lymphocytes/100 25 % 18.0-40. [facility] - leukocytes in 0 [facility] Blood Hospital Monocytes/100 5 % 2.0-12.0 [facility] - leukocytes in [facility] Blood Hospital Eosinophils/100 2 % 0.0-7.0 [facility] - leukocytes in [facility] Blood Hospital Basophils/100 0 % 0.0-3.0 [facility] - leukocytes in [facility] Hospital Segmented 7.9 K/UL 1.5-6.6 Above high normal [facility] - neutrophils Community [#/volume] in Hospital Blood Lymphocytes 2.9 K/UL 1.5-3.5 [facility] - [#/volume] in [facility] Blood Hospital Monocytes 0.6 K/UL 0.0-1.0 [facility] - [#/volume] in [facility] Blood Hospital Eosinophils 0.2 K/UL 0.0-0.7 [facility] - [#/volume] in [facility] Blood Hospital Basophils 0.0 K/UL 0.0-0.1 [facility] - [#/volume] in [facility] Differential [facility] - cell count [facility] Immature 1 % 0.0-2.0 [facility] - granulocytes/100 Community leukocytes in Hospital Blood by Automated count ID Date Data Source [id number] 11/26/2018 07:40:31 PM EDT [facility] Progress NoteMID-COUNTY PULMONARY ASSOC. ,P.C.Krystian Monae MD., F.CGualbertoC.P.Stella Hamilton MD., F.C.C.P. [address] [place] [address] [place], [place] [id number] [phone]: Evelio Carlin Sex: male DOA: 11/07/2018Da te of : 1950 Age: 68 y.o. LOS: LOS: 18 daysSubjective:Mr. Maximiliano mata is a 68 y.o. year old male who is being seen for PNEUMONIA ANDPL . EFFUSI ONHE HAVE COMPLETED COURSE OF ANTIBIOTICS .WBC = 13. 5.Objective:Vital Signs:Patie nt Vitals for the past 24 hrs: BP Temp Pulse Resp IrL36511/26/18 1607 102/61 97.3 F (3 6.3 C) 98 18 90 %11/26/18 0802 107/68 97.1 F (36.2 C) 68 18 91 %11/26/18 0358 128/ 70 97.7 F (36.5 C) 72 18 91 %11/25/18 2100 - - - - 91 %11/25/182000 118/71 97.5 F (36.4 C) 91 18 99 %Pulse OX:SpO2 Readings from Last 6 Encounters:11/26/18 90%09/25 96%@LASTSAO2(6)@Physical Exam:AWAKE , NON VERBAL General: Alert, coop erative, no distress, appears stated age. Head: Normocephalic, without ob vious abnormality, atraumatic. Eyes: Conjunctivae/corneas clear. PERR L, EOMs intact. Nose: Nares normal. No drainage or sinus tenderness Throat: Lips, mucosa, and tongue normal Neck: Supple, symmet rical, trachea midline, no adenopathy,thyroid: no enlargem ent/tenderness/nodules, no carotid bruit and no JVD. Lungs: RALES ARE SC ANTY to auscultation bilaterally. Chest Wall: No tenderness or deformity. Heart: Regular rate and rhythm, S1, S2 normal, no murmur, click,rub or nettles p. Abdomen: Soft, non-tender. Bowel sounds normal. No masses, No organomeg edison. Extremities: Extremities normal, atraumatic, no cyanosis or edema. Pulses: 4+ bilaterally. Skin: Skin color, texture, turgor normal. No rashes or lesions. Neurologic: CNII-XII intact. No focal motor or sensory defici t.Intake and Output:Last three shifts: 11/25 700 - 11/260In: 3060 [I.V.:450]Out: 4450 [Urine:4450]Lab Results:Recent Results (from the past 24 hour(s))VANCOMYCIN, TR OUGH Collection Time: 11/25/18 10:50 PMResult Value Ref Range Vancomycin,trough 22.6 ( HH) 10 - 20 ug/mLMAGNESIUM Collection Time: 11/26/18 5:06 AMResult Value Ref Range Magnesium 1.8 1.6 - 2.6 mg/dLABG:Recent Labs 6PH 7.50*PCO2 53*PO2 69*HCO3 41*Recent Glucose Results: No results found for: GLU, GLUPOC, GLUCPOC@LABAPCYTOINTER PRETATION@CULTURESAll Micro Results Procedure Component Value Units Date/Time CULTURE, URINE [[id number]] Collected: 11/20/18 0900 Order Status: Completed Specimen: Urin e from [place] Specimen Updated:11/22/18741 Special Requests: NO SPECIAL REQUESTS C ulture result: NO GROWTH 2 DAYS CULTURE, BLOOD [[id number]] Collected: 11/07/18 2 000 Order Status: Completed Specimen: Blood Updated: 11/12/18640 Special Request s: NO SPECIAL REQUESTS Culture result: NO GROWTH 5 DAYS CULTURE, BLOOD [[id number]] Collected: 11/07/182009 Order Status: Completed Specimen: Blood Updated: 640 Special Requests: NO SPECIAL REQUESTS Culture result: NO GROWTH 5 DA YS STREP PNEUMO AG, URINE [[id number]] Collected: 11/09/18 07 Order Status: Completed Specimen: Other from Urine, random Updated: Strep pne umo Ag, urine NEGATIVE Comment:Presumptive negative suggests nocurrent or recent pn eumococcal infection.Infection due to S.pneumonia cannot beruled out since the antigen presentin the sample may be below the detectionlimit of the test. This tasha t is notintended as a substitute for gram stainand bacterial culture Method IMMU NOCHROMATOGRAPHIC MEMBRANE ASSAY LEGIONELLA PNEUMOPHILA AG, URINE [[id number]] [facility] mikel: 11/08/18 1145 Order Status: Completed Specimen: Urine Updated: 11/09/18 1048 Legionella Ag, urine NEGATIVE Comment:PRESUMPTIVE NEGATIVE forL.pneumo phila Serogroup 1Antigen in urine,suggestingno recent or current inf ection.Infection due to Legionellacannot be ruled out since otherserogroups and spec ies may causedisease,antigen may not bepresent in urine in earlyinfection, an d the level ofantigen present in the urinemay be below the detectionlimit of the test. Method IMMUNOCHROMATOGRAPHIC MEMBRANE ASSAY CULTURE, URINE [[id number]] Collect ed: 11/07/18 1930 Order Status: Canceled Specimen: Urine from Clean catchImages: @IMAGESENCORD@Xr Chest Sngl VResult Date: 11/25/2018AP portable film of the chest c linical indication pneumonia [facility] Study demonstrates a left pleuraleffusion as well as infiltrate at the left base. This was present on previousstudy. There has been interval d evelopment of a small right pleural effusionwith linear streaking at the rig ht base this may represent infiltrate oratelectasis. Heart size difficult to e valuate.IMPRESSION: Infiltrate left base with pleural effusion, right pleural effusion with streaking at right lower lung field which may represent infiltrate oratelect asisXr Chest Sngl VResult Date: 11/22/2018History: PNEUMONIA Technique: P ortable chest x-ray 11/22/2018 8:03 AM Comparison:11/21/2018. FINDINGS: The exam is rotated. There is a small left pleural effusionwith probable infiltrate or atel ectasis. There is improved aeration of the rightlung since the prior. Evaluation of the cardiac silhouette is limited byprojection. The visualized osseous str uctures appear unremarkable.IMPRESSION: There is a small left pleural effusion with pr obable infiltrate oratelectasis. There is improved aeration of the right lung sinc e the prior.Xr Abd (kub)Result Date: 11/22/2018EXAM: XR ABD (KUB) INDICATION: ileus COMPARISON: None. FINDINGS: A supineradiograph of the abdomen shows a normal bowel gas pattern. No soft tissuemasses or pathologic calcification s are identified. The bones and soft tissuesare within normal limits. There i s moderate fecal material overlying the pelvis.There are skin kalpana along the midline.IMPRESSION: No dilated loops of bowel are identified to suggest obstruction.Xr Abd (kub)Result Date: 11/19/2018XR ABD (KUB)-SINGLE VIEW PRIOR: None HISTORY: E valuate for G-tube placementFINDINGS: The examination is limited-the pt is in an R AO/LPO position. A tubeoverlies the abdomen extending from the right lower quadrant to the left upperquadrant and whether this represents a gastric tube cannot be defi nitivelydetermined. The bowel gas pattern is nonspecific. No abnormally dilated loop ofbowel, bowel wall thickening, pneumatosis or free air is identified. No abnormalde nsities or calcifications are identified. There are midline surgical skinstaples i dentified. The visualized osseous structures are unremarkable.IMPRESSION: 1. Tube ov erlying the abdomen terminating in the region of stomach;as described and discussed ab ove on this single oblique view the exact locationof this tube cannot be determine d. 2. Otherwise unremarkable abdomen/KUB.Cta Chest W Or W Wo ContResult Date: 11/09/19 19Examination: CTA Chest ? PE angiography History: Hypoxia; rule out pneumoniavers us pulmonary embolism Priors: None Technique: Low-dose, multiplanar,helica l CTA chest was performed with bolus IV injection from lung apices tobases. 3D- reformatted images were obtained and reviewed on a dedicated viewingworkstation and di rectly supervised. Contrast: A total of 71 mL of Isovue-370was administered intravenou sly for this procedure. Findings: No evidence ofpulmonary embolism is seen. T here is decreased size of the right hemithorax fromchronic scarring and retr action with mediastinal shift left to right.Additional area of consolidation i s seen in the right lower lobe and suggestssuperimposed pneumonia with subs egmental atelectasis. Subsegmental atelectasisis also noted in the left jorge g base, with pleural parenchymal scarring. Lowlung volumes are seen. No pneumothora x seen. Aorta normal in caliber withoutaneurysm or dissection. Mediastin um no adenopathy. Mediastinal shift is seen inthe left and right as a result of chr onic changes in the right hemithorax.Heart shows no chamber enlargement or pericard ial effusion. No acute fracturesseen in the bony thorax, sternum, manubrium and rib cage. Multiple compressiondeformities are seen in the mid and lower thoracic spine , with superimposedspondyloarthropathy. Cannot exclude acute fracture.Impression : No evidence of pulmonary embolism Right lower lobe pneumoniasuggested. Incidenta l scarring and retraction in the right hemithorax fromremote/chronic inflammato ry disease and/or trauma. Bibasilar subsegmentalatelectasis. Report Electron ically Signed By: Pawel Zafar M.D. -11/08/2018 12:40 AMXr Chest PortResult D ate: 11/21/2018AP portable film of the chest clinical indication pneumonia Study is c ompared toprevious examination of November 19, 2018. There has been partial clearing o fstreaky changes seen at the right base. There has been interval development ofso me haziness at the left base as well as elevation of the left leaf of thediaphra gm. Heart size is difficult to evaluate.IMPRESSION: 1. Partial clearing of streaks at right base. 2. Haziness at leftbase which may represent infiltrateX r Chest PortResult Date: 11/19/2018History: Respiratory difficulty. FINDINGS: A fron krystian portable view of the chestis compared to the prior study of 11/07/2016. A large ga s-filled structure isnoted beneath the left diaphragm, unchanged, likely representin g the stomach.The cardiac silhouette is normal in size. There is again noted to be shift ofmediastinal structures to the right. There are some streaky and patchy changesat the right lung base not seen on the prior study and the possibility ofin filtrative change cannot be excluded. A few nonspecific left basilar streaksare note d as well. Prominence of the right hilum is unchanged and may merely carlos enrique a result o f the shift of mediastinal structures.IMPRESSION: New patchy opacit y at the right lung base may be infiltrative oratelectatic in nature. Few left basila r streaks are noted as well. Otherwisefindings similar.Xr Chest PortR esult Date: 11/07/2018XR CHEST PORT CLINICAL INDICATION PROVIDED:. "sob." COMPARISON: . 09/26/2015.FINDINGS:. The pericardial/cardiac silhouette is enlarg ed in the transversedimension. There is no pulmonary vascular congestion or interst itial edema.Linear density in the left lung base and faint densities in the right mi d tolower lung likely represent atelectasis. There is no lobar consolidation oreffusi on. There is no pneumothorax.IMPRESSION:. Bilateral lower lung atelectasis. No donna dence of consolidation oreffusion.Xr Abd Port 1 VResult Date: 11/21/2018Abdomen 2 views clinical indication ileus Study is compared to previousexamination of November 20, 2018 . There has been an interval decrease in boweldistention. Increased stool is note d in the rectal region. Skin clips are againnoted.IMPRESSION: 1. Interval decre ase in bowel distention. 2. Increased stool inrectal regionXr Abd Port 1 VResult Da te: 11/20/2018KUB one view(s) History: Ileus. Comparison: Yesterday. There is diffuse ileusof the small and large bowel which has increased involving the small bowel. Air and fecal material is noted in the rectosigmoid colon. The cecum appears to bein the right hemiabdomen but is otherwise unchanged. There is no evidence ofobstru ction, radiopaque gallstones, or kidney stones. The previously noted tubeoverlyi ng the abdomen is no longer seen.IMPRESSION: Increase of small bowel ileus.Medication s:Current Facility-Administered MedicationsMedication Dose Route Frequen cy pantoprazole (PROTONIX) granules for oral suspension 40 mg 40 mg Per G TubeACB m ethylPREDNISolone (PF) (SOLU-MEDROL) injection 20 mg 20 mg IntraVENous DAILY albuterol-ipratropium (DUO-NEB) 2.5 MG-0.5 MG/3 ML 3 mL Nebulization Q6HWA RT seema proate (DEPACON) 250 mg in 0.9% sodium chloride 50 mL IVPB 250 mgIntraVENous Q 12H albuterol-ipratropium (DUO-NEB) 2.5 MG-0.5 MG/3 ML 3 mL Nebulization Q4H TN N cinacalcet (SENSIPAR) tablet 60 mg 60 mg Oral DAILY budesonide (PULMICORT) 500 m cg/2 ml nebulizer suspension 500 mcg NebulizationBID RTActive Problems: COPD (chronic obstructive pulmonary disease) ([facility]) (11/08/2018) Acute respiratory dis tress (11/08/2018) Pneumonia (11/08/2018) COPD exacerbation ([facility]) (11/08/2018)Asses sment:COPD (chronic obstructive pulmonary disease) ([facility]) (11/08/2018) Acute respi ratory distress (11/08/2018) Pneumonia (11/08/2018) COPD exacerbation ([facility]) () Acute resp failure combined,IMPROVING pneumonia L L L acute copd exacerbation P .. E . ruled out. BILATERAL BASAL ATELECTASES IMPROVING ASPRATIONS / DYSPHAGIA SEVERE CONSTIPATION SMALL PL EFFUSIONSPLAN,Monitoring, OFF IV ANTIBIOTICS D/C SOLUMEDROLbipap prn and at night. DUO BLAKE QIDD/W nursing s taff. CONSIDER D/C PLANNING TO S Trevon Monae MD F.C.C.P.November 26, 20187:36 P M Name Value Range Interpretation Code Description Data Harriett rce(s) Supporting Document(s ) ID Date Data Source [id number] 11/26/2018 07:37:02 PM EDT [facility] Bedside and Verbal shift change report g iven to Lelo RN (oncoming nurse) Israel Alamo RN (offgoing nurse). Report incl uded the following information SBAR, Kardex,Intake/Output, MAR and Recent Res ults. Information regarding wound vac endorsedto the next shift. Name Value Range Interpretation Code Description Data Harriett rce(s) Supporting Document(s ) ID Date Data Source [id number] 11/26/2018 03:35:41 PM EDT [facility] ID Progress Note11/26/2018Subjective:Awak e non verbalAfebrileWbc still elevated..Unable to provide any historyO bjective:Vitals:Patient Vitals for the past 24 hrs: BP Temp Pulse Resp ZvR24311/26/18 0802 107/68 97.1 F (36.2 C) 68 18 91 %11/26/18 0358 128/70 97.7 F (36.5 C) 72 18 91 %11/25/18 2100 - - - - 91 %11/25/182000 118/71 97.5 F (36.4 C) 91 18 99 % 11/25/18 1601 108/64 97.2 F (36.2 C) 100 18 94 %Tmax: Temp (24hrs), Av.4 F (36 .3 C), Min:97.1 F (36.2 C), Max:97.7 F(36.5 C)Physical Exam:General: Awake non verbal cooperative, no distressEyes: Conjunctivae/corneas clear. PERRLNeck: S upple, symmetrical, trachea midline, no adenopathyLungs: Bilateral breath soun ds with basal crackles..Heart: Regular rate and rhythm, S1, S2 normalAbdomen: Soft , non-tender. Bowel sounds normal. No masses, Noorganomegaly.peg+wound vacBack: No CVA tenderness.Extremities: Extremities normal, atraumatic, no cyanosis or edema .Pulses: 2+ and symmetric all extremities.Skin: Skin color, texture, t urgor normal. No rashes or lesionsLymph nodes: Cervical, supraclavicular, and ax illary nodes normal.Current Facility-Administered MedicationsMedicat ion Dose Route Frequency pantoprazole (PROTONIX) granules for oral suspension 40 mg 40 mg Per G TubeACB methylPREDNISolone (PF) (SOLU-MEDROL) in jection 20 mg 20 mg IntraVENous DAILY albuterol-ipratropium (DUO-NEB) 2.5 MG-0 .5 MG/3 ML 3 mL Nebulization Q6HWA RT valproate (DEPACON) 250 mg in 0.9% sodiu m chloride 50 mL IVPB 250 mgIntraVENous Q12H albuterol-ipratropium (DUO-NEB) 2.5 MG- 0.5 MG/3 ML 3 mL Nebulization Q4H PRN cinacalcet (SENSIPAR) tablet 60 mg 60 m g Oral DAILY budesonide (PULMICORT) 500 mcg/2 ml nebulizer suspension 500 mcg N ebulizationBID RTLabs:Recent Labs 955 810WBC 13.7* 13.8* HGB 14.9 13.7*PLT 206 198BUN 11 9CREA 0.41* 0.31*SGOT 15 13*AP 99 85TBILI 0.6 0.6Cul tures:Lab ResultsComponent Value Date/Time Culture result: NO GROWTH 2 DAYS 019 09:00 AM Culture result: NO GROWTH 5 DAYS 11/07/2018 08:10 PM Culture result: NO G ROWTH 5 DAYS 11/07/2018 08:00 PMRadiology:No results found.Assessment: Sepsis POA A spiration pneumonia completed antibiotic therapy. Dysphagia s/p peg placement C OPD S/p PEG placement Ileus Pleural effusionPlan:1. Continue current treatme nt..Pantera Beauchamp 20183:33 PM Name Value Range Interpretation Code Description Data Harriett rce(s) Supporting Document(s ) ID Date Data Source [id number] 11/26/2018 08:50:01 AM EDT [facility] Progress NotePatient: Evelio Carlin SSN: [id number] of : 1950 Age: 68 y.o. Sex: maleAdmit Date: Days Post-OpProcedure: Procedure(s):GASTROSTOMY TUBE PLACEMENT and cut toe and finger nailsSubjective:Patient Non verbal sleep ing now but according to nurses is restless during dayObjective:Visit VitalsBP 107/6 8 (BP 1 Location: Left arm, BP Patient Position: At rest;Supine)Pulse 68Temp 97 .1 F (36.2 C)Resp 18Ht 5' 2" (1.575 m)Wt 59.4 kg (130 lb 14.4 oz)SpO2 91%BMI 23.9 4 kg/m Temp (24hrs), Av.4 F (36.3 C), Min:97.1 F (36.2 C), Max:97.7 F (36.5 C)Physical Exam:LUNG: clear to auscultation bilaterally, HEART: regular rate and rhy thm, S1, G5kxkjbs, no murmur, click, rub or gallop, ABDOMEN: Vac intact minimal drai nage(50ml) over day , EXTREMITIES: extremities normal, atraumatic, no cyano sis oredemaData Review: reviewed Consultants documentation, Nursing documentation and I &OLab Data Reviewed:CBC w/Diff Recent Labs 11/25/1907WBC 13.7* 13.8 *HGB 14.9 13.7*HCT 42.8 39.4*MCV 96.2* 94.0PLT 206 198GRANS 69 87*LYMPH 24 8*EO S 2 0Chemistry Recent Labs 11/25/1908GLU 102 -- 15 4*NA 142 -- 139K 3.4* -- 3.4*CL 99 -- 98CO2 38* 43* 36*BUN 11 -- 9CREA 0.41* -- 0.31* Recent Labs 11/25/1907CA 9.3 9.5ALB 2.7* 2.7*TBILI 0.6 0.6AP 99 85SGOT 15 13*ALT 25 25Coagulation No results for input(s): P TP, INR, APTT in the last 72 hours.No lab exists for component: INREXTAssessment:H ospital Problems Never Reviewed Codes Class Noted POA COPD (chronic obstructiv e pulmonary disease) (HCC) ICD-10-CM: J44.9ICD-9-CM: 496 11/08/2018 Unknown Ac manzanita respiratory distress ICD-10-CM: R06.03ICD-9-CM: 518.82 11/08/2018 Unknow n Pneumonia ICD-10-CM: J18.9ICD-9-CM: 486 11/08/2018 Unknown COPD exacerbation (HCC ) ICD-10-CM: J44.1ICD-9-CM: 491.21 11/08/2018 UnknownPlan/Recommendations/Medical Deci elio Making:WBC mildly elevated, Still on steroids (not helping the condition of t he woundhealing)Afebrile Vac / prevena sponge still must be intact for total of 7 days and thatis till Saturday of next weekStill on IV antibioticsCan be transferred [place] if medically ready.However , if not, would benefit fr om closer monitoring of wound day to day untilVac is discontinued.Signed By: Arik Kaye MD November 26, 2018 Name Value Range Interpretation Code Description Data Harriett rce(s) Supporting Document(s ) ID Date Data Source [id number] 11/26/2018 07:16:42 AM EDT [facility] Name Value Range Interpretation Description Data Sup porting Code Source(s) Document(s ) Magnesium 1.8 mg/dL 1.6-2.6 [facility] - [Mass/volume] Community in Serum or Hospital Plasma ID Date Data Source [id number] 11/25/2018 11:36:22 PM EDT [facility] Name Value Range Interpretation Description Data Sup porting Code Source(s) Document(s ) Vancomycin 22.6 10-20 Above upper panic [facility] - [Mass/volume] ug/mL limits Community in Serum or Hospital Plasma --trough CALLED TO AND READ BACK BYNANCY MCKEON 11/25/18 23:34 M LEONORA CONFIRMED(NOTE)Trough levels of 15-20 ug /mL should be targeted for patients withcoagulase negative Staphylococcus an d MRSA pneumonia, endocarditis,osteomyelitis, meningitis, and bacteremia; as well as p atients notresponding to lower levels. Trough levels of 10-15 ug/mL forinfections from other sources (e.g. urinary tract, cellulitis) areappropriate. All patients receiving concomitant nephrotoxic therapiesshould have their function clos adalberto monitored regardless of peak ortrough levels. ID Date Data Source [id number] 11/25/2018 07:37:57 PM EDT [facility] Bedside and Verbal shift change report g ankit to NANCY Lind (oncoming nurse) byNehemias Alamo RN (offgoing nurse). Report incl uded the following information SBAR, Kardex,Intake/Output, MAR and Recent Res ults. Name Value Range Interpretation Code Description Data Harriett rce(s) Supporting Document(s ) ID Date Data Source [id number] 11/25/2018 06:10:39 PM EDT [facility] ID Progress Note11/25/2018Subjective:Awak e non verbalAfebrileWbc still elevated..Unable to provide any historyO bjective:Vitals:Patient Vitals for the past 24 hrs: BP Temp Pulse Resp YoR06211/25/18 1601 108/64 97.2 F (36.2 C) 100 18 94 %11/25/18 0800 130/88 97.5 F (36.4 C) 83 16 90 %11/25/18 0404 98/68 97.4 F (36.3 C) 74 18 96 %11/25/18 0012 134/74 98.3 F (36.8 C) 76 18 96 %11/24/18 1942 148/87 97.5 F (36.4 C) 81 18 95 %Tmax: Temp (24hrs), Av.6 F (36.4 C), Min:97.2 F (36.2 C), Max:98.3 F(36.8 C)Physical Exam:General: Awake non verbal cooperative, no distressEyes: Conjunctivae/corneas c lear. PERRLNeck: Supple, symmetrical, trachea midline, no adenopathyLungs: Bilateral breath sounds with basal crackles..Heart: Regular rate and rhythm, S1, S2 normalAb domen: Soft, non-tender. Bowel sounds normal. No masses, Noorganomegaly.peg+ with dressingBack: No CVA tenderness.Extremities: Extremities norm al, atraumatic, no cyanosis or edema.Pulses: 2+ and symmetric all extremities.Skin: S kin color, texture, turgor normal. No rashes or lesionsLymph nodes: Cervical, supracl avicular, and axillary nodes normal.Current Facility-Administered MedicationsMedicat ion Dose Route Frequency potassium chloride (KLOR-CON) packet for solution 20 mEq 2 0 mEq Oral BID WITHMEALS vancomycin (VANCOCIN) 1,250 mg in 0.9% sodium chlor wade 250 mL IVPB 1,250 mgIntraVENous Q12H pantoprazole (PROTONIX) granules for ora l suspension 40 mg 40 mg Per G TubeACB methylPREDNISolone (PF) (SOLU-MEDROL) in jection 20 mg 20 mg IntraVENous DAILY LORazepam (ATIVAN) tablet 0.5 mg 0.5 mg Per G Tube QHS albuterol-ipratropium (DUO-NEB) 2.5 MG-0.5 MG/3 ML 3 mL Nebul ization Q6HWA RT valproate (DEPACON) 250 mg in 0.9% sodium chloride 50 mL IVPB 250 mgIntraVENous Q12H albuterol-ipratropium (DUO-NEB) 2.5 MG-0.5 MG/3 ML 3 mL Nebul ization Q4H PRN cinacalcet (SENSIPAR) tablet 60 mg 60 mg Oral DAILY budesonide (PUL MICORT) 500 mcg/2 ml nebulizer suspension 500 mcg NebulizationBID RTLabs:Recent La bs 11/25/1907WBC 13.7* 13.8* 12.6*HGB 14.9 13.7* 13.1*PLT 206 198 171BUN 11 9 10CREA 0.41* 0.31* 0.32*SGOT 15 13* 19AP 99 85 62TBILI 0.6 0.6 0.8Cultures:Lab ResultsComponent Value Date/Time Culture result: NO GROWTH 2 DA YS 11/20/2018 09:00 AM Culture result: NO GROWTH 5 DAYS 11/07/2018 08:10 PM Cultur e result: NO GROWTH 5 DAYS 11/07/2018 08:00 PMRadiology:Xr Chest Sngl VResult Date: 11/25/2018AP portable film of the chest clinical indication pneumonia Study is c ompared toprevious examination of November 22, 2018. Study demonstrates a left pleurale ffusion as well as infiltrate at the left base. This was present on previousstudy. There has been interval development of a small right pleural effusionwith linear streaking at the right base this may represent infiltrate oratelectasis. Hear t size difficult to evaluate.IMPRESSION: Infiltrate left base with pleural effusi on, right pleural effusionwith streaking at right lower lung field which may represe nt infiltrate oratelectasisAssessment: Sepsis POA Aspiration pneumonia Dyspha jaydon s/p peg placement COPD S/p PEG placement Ileus Pleural effusionPlan:1 . Continue Iv vancomycin and zosyn.Pantera Beauchamp 20186:08 PM Name Value Range Interpretation Code Description Data Harriett rce(s) Supporting Document(s ) ID Date Data Source [id number] 11/25/2018 01:52:08 PM EDT [facility] Patient with Prevena negative dressing t o the abdominal incision which isattached to VAC. Exudate is serous, small amount sin ce yesterday.Discussed with Dr. Kaye and Dr. Hills.Leave VAC attached to the Pre vena dressing while patient is in the hospital. D/CVAC on discharge and leave Prevena dressing in place with suction.The Prevena dressing stays in place with suc tion x 7 days from application (11/24/2018)At that time the suction will stop and Prev bandar discarded.Will follow during this stay for VAC care. Name Value Range Interpretation Code Description Data Harriett rce(s) Supporting Document(s ) ID Date Data Source [id number] 11/25/2018 01:09:03 PM EDT [facility] PULMONARY/ CCM- Consult NotePatient: Ivelisse Carlin Sex: male DOA: 11/07/2018Date of : 1 Age: 68 y.o. LOS: LOS: 17 daysHPI: step down.Evelio Carlin is a 68 y.o. male who has been seen for resp failure.7:31 PM: Evelio Carlin is a 68 y.o. male with h/o COPD, GERD,hyperparathyroidism, mental retarda tion, Pneumonia, pulmonary embolism, andschizophrenia who presents to the ED via EMS for shortness of breath andwheezing. Per triage note patient was given Duo-Ne b and Solu-Medrol 40 mg IM atfacility. 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 Authorizing Providermultivi tamin (ONE A DAY) tablet Take 1 Tab by mouth daily. Yes Provider,Historicalclorazep ate (TRANXENE) 3.75 mg tablet Take by mouth nightly. Yes Provider,Historicalalbute rol-ipratropium (DUO-NEB) 2.5 mg-0.5 mg/3 ml nebu 3 mL by Nebulizationroute every six (6) hours as needed. Yes Provider, HistoricallamoTRIgine (LAMICTAL) 25 mg t ablet Take 50 mg by mouth two (2) times a day.Yes Provider, Historicalcinacalcet ( SENSIPAR) 30 mg tablet Take 60 mg by mouth daily. Yes Provider,Historicalvalproat e (DEPAKENE) 250 mg/5 mL syrup Take 750 mg by mouth two (2) times a day.Provider, Jazmine Thao Known AllergiesHistory reviewed. No pertinent surgical history.History revie wed. No pertinent family history.Social HistorySocioeconomic History Marital st atus: SINGLE Spouse name: Not on file Number of children: Not on file Years o f education: Not on file Highest education level: Not on fileTobacco Use Smoking s tatus: Never Smoker Smokeless tobacco: Never UsedSubstance and Sexual Activity Alcoh ol use: No Drug use: NoReview of SystemsPertinent items are noted in the History of Present Illness.Physical Exam:Current medications:Current Facilit y-Administered Medications: vancomycin (VANCOCIN) 1,250 mg in 0.9% sodium chlor wade 250 mL IVPB, 1,250 mg,IntraVENous, Q12H, Natasha Dudley MD, Last Rate: 125 mL/hr a t 11/25/18 1231,1,250 mg at 11/25/18 1231 pantoprazole (PROTONIX) granules for ora l suspension 40 mg, 40 mg, Per TINA Veloz Banner, Kenneth M, MD, 40 mg at 11/25/18 0841 methylPREDNISolone (PF) (SOLU-MEDROL) injection 20 mg, 20 mg, IntraVENous,KYLEIGH YDov Nihal, MD, 20 mg at 11/25/18 0841 LORazepam (ATIVAN) tablet 0.5 mg, 0.5 m g, Per G Tube, QHS, Mili Hills,, 0.5 mg at 11/24/18 2100 albuterol-ipratrop ium (DUO-NEB) 2.5 MG-0.5 MG/3 ML, 3 mL, Nebulization, [id number], Stella Hamilton M D, 3 mL at 11/25/18 0758 piperacillin-tazobactam (ZOSYN) 3.375 g in 0.9% sodium chloride (MBP/ADV) 100mL MBP, 3.375 g, IntraVENous, Q8H, Natasha Dudley MD, Last Rate: 25 mL/hr at11/25/18 1011, 3.375 g at 11/25/18 1011 valproate (DE PACON) 250 mg in 0.9% sodium chloride 50 mL IVPB, 250 mg,IntraVENous, Q12H, Letty Kaye MD, Last Rate: 50 mL/hr at 11/25/18 0842,250 mg at 11/25/18 0842 albuterol -ipratropium (DUO-NEB) 2.5 MG-0.5 MG/3 ML, 3 mL, Nebulization, Q4HPRN, Artemio Kaye MD, 3 mL at 11/19/18 0602 cinacalcet (SENSIPAR) tablet 60 mg, 60 mg, Oral, DA PIERRE, Letty Kaye MD,60 mg at 11/25/18 0841 budesonide (PULMICORT) 500 mcg/2 ml nebulizer suspension, 500 mcg,Nebulization, BID RT, Artemio Kaye MD, 500 mcg at 11/25/18 0758DataVisit VitalsBP 130/88 (BP 1 Location: Left arm , BP Patient Position: At rest)Pulse 83Temp 97.5 F (36.4 C)Resp 16Ht 5' 2" (1.575 m)Wt 59.4 kg (130 lb 14.4 oz)SpO2 90%BMI 23.94 kg/m Intake and Output:Date 699 - 11/25/1865811/25/18699 - 11/26/18 0659Shift 2825-2895 8612-4807 2 4 Hour Total 6894-9954 0212-1881 24 Hour TotalINTAKEP.O. 0 0 P.O. 0 0I.V.(mL/k g/hr) 400(0.6) 400(0.3) Volume (piperacillin-tazobactam (ZOSYN) 3.375 g in 0.9% sodium chloride(MBP/ADV) 100 mL MBP) 100 100 Volume (vancomycin (VANCOCIN) 1,250 mg in 0.9% sodium chloride 250 mL IVPB)250 250 Volume (valproate (DEPACO N) 250 mg in 0.9% sodium chloride 50 mL IVPB) 50 50NG/GT 1325 1325 125 125 Water F lush Volume (mL) (PEG/Gastrostomy Tube 11/17/18) 325 325 125 125 Medication Volume (PEG/Gastrostomy Tube 11/17/18) 300 300 Intake (ml) (PEG/Gastrostomy Tube 0 11/17/18) 700 700Shift Total(mL/kg) 1725(29.1) 1725(29.1) 125(2.1) 125(2.1 )OUTPUTUrine(mL/kg/hr) 1000(1.4) 1000(0.7) Urine Output (mL) (Urinary Catheter 10/31 Lozano) 1000 1000Shift Total(mL/kg) 1000(16.8) 1000(16.8)NET 1725 -1000 725 125 125Weight (kg) 59.4 59.4 59.4 59.4 59.4 59.4Pulse OX:SpO2 Readings from Last 6 E ncounters:11/25/18 90%09/26/15 96%@LASTSAO2(6)@PHYSICAL EXAM:General: Lethargic,responding.Head: Normocephalic, without obvious abnormality, atraumatic. Eyes: Conjunctivae clear, anicteric sclerae. Pupils are equalNose: Nares n ormal. No drainage or sinus tenderness.Throat: Lips, mucosa, and tongue normal. No ThrushNeck: Supple, symmetrical, no adenopathy, thyroid: no n tender no carotid bruit and no JVD.Back: Symmetric, No CVA tenderness.Lungs: Scattered rhonchi,Chest wall: No tenderness or deformity. No Accessory muscle use.He art: Regular rate and rhythm, no murmur, rub or gallop.Abdomen: Soft, non-tende r. Not distended. Bowel sounds normal. No massesExtremities: Extremities normal, a traumatic, No cyanosis. No edema. No clubbingSkin: Texture, turgor normal . No rashes or lesions. Not JaundicedLymph nodes: Cervical, supraclavicular normal. Psych: Good insight. Not depressed. Not anxious or agitated.Neurologic: EOMs int act. No facial asymmetry. No aphasia or slurred speech.Most recent labs:Recent L abs 11/25/1907WBC 13.7* 13.8* 12.6*HGB 14. 9 13.7* 13.1*HCT 42.8 39.4* 38.8*PLT 206 198 171Recent Labs 11/25/1908 6 11/23/1904NA 142 -- 139 136K 3.4* -- 3.4* 3.7CL 99 -- 98 101 CO2 38* 43* 36* 30GLU 102 -- 154* 147*BUN 11 -- 9 10CREA 0.41* -- 0.31* 0.32*C A 9.3 -- 9.5 9.8MG 1.9 -- 1.8 1.8ALB 2.7* -- 2.7* 2.5*TBILI 0.6 -- 0.6 0.8SGOT 15 -- 13* 19ALT 25 -- 25 29Recent Labs 6PH 7.50*PCO2 53*PO2 69*HCO3 41*ABG:Recent Labs PH 7.50*PCO2 53*PO2 69*HCO3 41*Cultures:No results fo und for: SDESLab ResultsComponent Value Date/Time Culture result: NO GROWTH 2 DA YS 11/20/2018 09:00 AM Culture result: NO GROWTH 5 DAYS 11/07/2018 08:10 PM Cultur e result: NO GROWTH 5 DAYS 11/07/2018 08:00 PMImages:Cta Chest W Or W Wo ContResult Date: 11/08/2018Examination: CTA Chest ? PE angiography History: Hypoxia; rule out p neumoniaversus pulmonary embolism Priors: None Technique: Low-dose, multiplanar,h elical CTA chest was performed with bolus IV injection from lung apices tobases. 3D- reformatted images were obtained and reviewed on a dedicated viewingworkstation and di rectly supervised. Contrast: A total of 71 mL of Isovue-370was administered intravenou sly for this procedure. Findings: No evidence ofpulmonary embolism is seen. T here is decreased size of the right hemithorax fromchronic scarring and retr action with mediastinal shift left to right.Additional area of consolidation i s seen in the right lower lobe and suggestssuperimposed pneumonia with subs egmental atelectasis. Subsegmental atelectasisis also noted in the left jorge g base, with pleural parenchymal scarring. Lowlung volumes are seen. No pneumothora x seen. Aorta normal in caliber withoutaneurysm or dissection. Mediastin um no adenopathy. Mediastinal shift is seen inthe left and right as a result of chr onic changes in the right hemithorax.Heart shows no chamber enlargement or pericard ial effusion. No acute fracturesseen in the bony thorax, sternum, manubrium and rib cage. Multiple compressiondeformities are seen in the mid and lower thoracic spine , with superimposedspondyloarthropathy. Cannot exclude acute fracture.Impression : No evidence of pulmonary embolism Right lower lobe pneumoniasuggested. Incidenta l scarring and retraction in the right hemithorax fromremote/chronic inflammato ry disease and/or trauma. Bibasilar subsegmentalatelectasis. Report Electron ically Signed By: Pawel Zafar M.D. -11/08/2018 12:40 AMXr Chest PortResult D ate: 11/07/2018XR CHEST PORT CLINICAL INDICATION PROVIDED:. "sob." COMPARISON: . 09/26/2015.FINDINGS:. The pericardial/cardiac silhouette is enlarg ed in the transversedimension. There is no pulmonary vascular congestion or interst itial edema.Linear density in the left lung base and faint densities in the right mi d tolower lung likely represent atelectasis. There is no lobar consolidation oreffusi on. There is no pneumothorax.IMPRESSION:. Bilateral lower lung atelectasis. No donna dence of consolidation oreffusion.Assessment/PlanActive Problem s: COPD (chronic obstructive pulmonary disease) (HCC) (11/08/2018) Acute respir atory distress (11/08/2018) Pneumonia (11/08/2018) COPD exacerbation (HCC) () Acute resp failure combined, pneumonia acute copd exacerbation pe rul ed out.PLAN,Monitoring,bipap prn for resp distressIvabx as per id,Iv steroids tape redbipap prn and at night.NebS/p peg,feeding started.D/w nursing staff.Pantera Munson 2018The billing code submitted in association with this evaluation also includes thetime to review patient's prior records, communicate with the physician team,obtain corroborating data, and discuss the risk and benefits of the proposedman agement plan with the patient and their family >30 minutes. Name Value Range Interpretation Code Description Data Harriett rce(s) Supporting Document(s ) ID Date Data Source [id number] 11/25/2018 11:19:34 AM EDT [facility] Name Value Range Interpretation Description Data Sup porting Code Source(s) Document(s ) Sodium 142 136-145 [facility] - [Moles/volume] in mmol/L [facility] Serum or Plasma Hospital Potassium 3.4 3.5-5.1 Below low normal [facility] - [Moles/volume] in mmol/L [facility] Serum or Plasma Hospital Chloride 99 98-107 [facility] - [Moles/volume] in mmol/L [facility] Serum or Plasma Hospital Carbon dioxide, 38 21-32 Above high [facility] - total mmol/L normal [facility] [Moles/volume] in Hospital Serum or Plasma Anion gap in Serum 8 10-20 Below low normal [facility] - or Plasma mmol/L [facility] Glucose 102 74-106 [facility] - [Mass/volume] in mg/dL [facility] Serum or Plasma Hospital Urea nitrogen 11 7-18 [facility] - [Mass/volume] in mg/dL [facility] Serum or Plasma Hospital Creatinine 0.41 0.70-1. Below low normal [facility] - [Mass/volume] in mg/dL 30 [facility] Serum or Plasma Hospital Glomerular >60 [facility] - filtration Community rate/1.73 sq M Hospital predicted among blacks [Volume Rate/Area] in Serum or Plasma by Creatinine-based formula (MDRD) Glomerular >60 [facility] - filtration Community rate/1.73 sq M Hospital predicted among non-blacks [Volume Rate/Area] in Serum or Plasma by Creatinine-based formula (MDRD) Calcium 9.3 8.5-10. [facility] - [Mass/volume] in mg/dL 1 [facility] Serum or Plasma [facility] Bilirubin.total 0.6 0.2-1.0 [facility] - [Mass/volume] in mg/dL [facility] Serum or Plasma Hospital Alanine 25 U/L 13-61 [facility] - aminotransferase Community [Enzymatic Hospital activity/volume] in Serum or Plasma Aspartate 15 U/L 15-37 [facility] - aminotransferase Community [Enzymatic Hospital activity/volume] in Serum or Plasma by With P-5'-P Alkaline 99 U/L 45-117 [facility] - phosphatase Community [Enzymatic Hospital activity/volume] in Serum or Plasma Protein 5.9 6.4-8.2 Below low normal [facility] - [Mass/volume] in g/dL [facility] Serum or Plasma [facility] Albumin 2.7 3.5-4.7 Below low normal [facility] - [Mass/volume] in g/dL [facility] Serum or Plasma by [facility] Bromocresol purple (BCP) dye binding method Globulin 3.2 1.7-4.7 [facility] - [Mass/volume] in g/dL [facility] Serum by [facility] calculation Albumin/Globulin 0.9 0.7-2.8 [facility] - [Mass Ratio] in [facility] Serum or Plasma Hospital ID Date Data Source [id number] 11/25/2018 11:19:34 AM EDT [facility] Name Value Range Interpretation Description Data Sup porting Code Source(s) Document(s ) Magnesium 1.9 mg/dL 1.6-2.6 [facility] - [Mass/volume] Community in Serum or Hospital Plasma ID Date Data Source [id number] 11/25/2018 11:10:21 AM EDT [facility] Name Value Range Interpretation Description Data Sup porting Code Source(s) Document(s ) Leukocytes 13.7 4.8-10.6 Above high normal [facility] - [#/volume] in K/uL [facility] Blood by Hospital Automated count Erythrocytes 4.45 4.70-6.0 Below low normal [facility] - [#/volume] in M/uL 0 Community Blood by Hospital Automated count Hemoglobin 14.9 14.0-18. [facility] - [Mass/volume] in g/dL 0 [facility] Blood Hospital Hematocrit 42.8 % 42.0-52. [facility] - [Volume 0 Community Fraction] of Hospital Blood by Automated count Erythrocyte mean 96.2 FL 81.0-94. Above high normal [facility] - corpuscular 0 Community volume [Entitic Hospital volume] by Automated count Erythrocyte mean 33.5 PG 27.0-35. [facility] - corpuscular 0 [facility] [Entitic mass] by Automated count Erythrocyte mean 34.8 30.7-37. [facility] - corpuscular g/dL 3 [facility] hemoglobin Hospital concentration [Mass/volume] by Automated count Erythrocyte 14.7 % 11.5-14. Above high normal [facility] - distribution 0 Community width [Ratio] by Hospital Automated count Platelets 206 K/uL 130-400 [facility] - [#/volume] in [facility] Blood by Hospital Automated count Platelet mean 9.3 FL 9.2-11.8 [facility] - volume [Entitic Community volume] in Blood Hospital by Automated count Segmented 69 % 48.0-72. [facility] - neutrophils/100 0 Community leukocytes in Hospital Blood Lymphocytes/100 24 % 18.0-40. [facility] - leukocytes in 0 [facility] Blood Hospital Monocytes/100 5 % 2.0-12.0 [facility] - leukocytes in [facility] Blood Hospital Eosinophils/100 2 % 0.0-7.0 [facility] - leukocytes in [facility] Blood Hospital Basophils/100 0 % 0.0-3.0 [facility] - leukocytes in [facility] Blood [facility] Segmented 9.2 K/UL 1.5-6.6 Above high normal [facility] - neutrophils Community [#/volume] in Hospital Blood Lymphocytes 3.3 K/UL 1.5-3.5 [facility] - [#/volume] in [facility] Blood Hospital Monocytes 0.7 K/UL 0.0-1.0 [facility] - [#/volume] in [facility] Blood [facility] Eosinophils 0.3 K/UL 0.0-0.7 [facility] - [#/volume] in [facility] Blood [facility] Basophils 0.0 K/UL 0.0-0.1 [facility] - [#/volume] in [facility] Differential [facility] - cell count [facility] Immature 1 % 0.0-2.0 [facility] - granulocytes/100 Community leukocytes in Hospital Blood by Automated count ID Date Data Source [id number] 11/25/2018 09:09:04 AM EDT [facility] GITolerating feeds at goal rateAbdomen i s soft and nontenderWound being managed by Dr. Rodriguez water changed from every 3 hours to every 4 hours as patient is stillgetting IVSS fluidPlease call as ne eded Name Value Range Interpretation Code Description Data Harriett rce(s) Supporting Document(s ) ID Date Data Source [id number] 11/25/2018 09:08:41 AM EDT [facility] Progress NotePatient: Evelio Carlin SSN: [id number] of : 1950 Age: 68 y.o. Sex: maleAdmit Date: Days Post-OpProcedure: Procedure(s):GASTROSTOMY TUBE PLACEMENT and trimmed toe and finger nailsSubjective:Patient non verbal, del thing comfortablyObjective:Visit VitalsBP 130/88 (BP 1 Location: Left arm, BP Siri ent Position: At rest)Pulse 83Temp 97.5 F (36.4 C)Resp 16Ht 5' 2" (1.575 m)Wt 59. 4 kg (130 lb 14.4 oz)SpO2 90%BMI 23.94 kg/m Temp (24hrs), Av.6 F (36.4 C), Min :97 F (36.1 C), Max:98.3 F (36.8 C)Physical Exam:ABDOMEN: soft, non-tende r. Bowel sounds normal. No masses, no organomegaly,Prevena intact, minimal odette inage around g tube, No visible leakage from drainagecanisterData Review: reviewed C onsultants documentation, Nursing documentation and I &OLab Data Reviewed: CBC w/Diff Recent Labs 11/23/1904WBC 13.8* 12.6*HGB 13.7* 13. 1*HCT 39.4* 38.8*MCV 94.0 94.9*PLT 198 171GRANS 87* 88*LYMPH 8* 8*EOS 0 0Chemis try Recent Labs 11/23/1904GLU 154* 147* --NA 139 136 --K 3.4* 3.7 --CL 98 101 --CO2 36* 30 28*BUN 9 10 --CREA 0.31* 0.32* -- Rece nt Labs 11/23/1904CA 9.5 9.8ALB 2.7* 2.5*TBILI 0.6 0.8AP 85 62SGO T 13* 19ALT 25 29Coagulation No results for input(s): PTP, INR, APTT in the last 72 hours.No lab exists for component: INREXTAssessment:Hospital Problems Nilo uribe Reviewed Codes Class Noted POA COPD (chronic obstructive pulmonary disease) ([facility]) ICD-10-CM: J44.9ICD-9-CM: 496 11/08/2018 Unknown Acute respiratory dist ress ICD-10-CM: R06.03ICD-9-CM: 518.82 11/08/2018 Unknown Pneumonia ICD-10-CM: J 18.9ICD-9-CM: 486 11/08/2018 Unknown COPD exacerbation (HCC) ICD-10-CM: J44.1ICD-9 -CM: 491.21 11/08/2018 UnknownPlan/Recommendations/Medical Deci elio Making:Slight drainage around g tube , applied stomahesive and recovered with t egedermWBC slightly elevatedTube feeding goal reached.Will maintain negative pressure on the wound and monitor drainage.Still on steroidsSigned By: Letty Kaye MD [facility] 2018 Name Value Range Interpretation Code Description Data Harriett rce(s) Supporting Document(s ) ID Date Data Source [id number] 11/25/2018 09:05:13 AM EDT [facility] AP portable film of the chest clinical i ndication pneumoniaStudy is compared to previous examination of November 22, 2018. Studydemonstratesa left pleural effusion as well as infiltrate at the left base. Thi s waspresenton previous study. There has been interval development of a small rightple uraleffusion with linear streaking at the right base this may represent infiltrate or atelectasis. Heart size difficult to evaluate.IMPRESSION:Infiltrate left base with pleural effusion, right pleural effusion withstreaking at right lower elham ng field which may represent infiltrate or atelectasisSigning date/time: 11/25/2018 9:05 AMSigned by: ROSEANNE SÁNCHEZ Name Value Range Interpretation Code Description Data Harriett rce(s) Supporting Document(s ) ID Date Data Source [id number] 11/25/2018 09:09:00 AM EDT [facility] Name Value Range Interpretation Description Data Sup porting Code Source(s) Document(s ) pH of Arterial 7.50 7.35-7.4 Above high normal [facility] - blood 5 [facility] Hospital Carbon dioxide 53 mmHg 32-48 Above high normal [facility] - [Partial Community pressure] in Hospital Arterial blood Oxygen 69 mmHg 83-108 Below low normal [facility] - [Partial Community pressure] in Hospital Arterial blood Carbon 43 19-24 Above high normal [facility] - dioxide, total mmol/L Community [Moles/volume] Hospital in Arterial blood Bicarbonate 41 21-28 Above upper panic [facility] - [Moles/volume] mmol/L limits [facility] in Arterial Hospital blood Oxygen 98 % 94-98 [facility] - saturation in [facility] Blood Hospital Base excess in 15.6 0-3 Above high normal [facility] - Arterial blood mmol/L Community by calculation Hospital Body site [facility] - [facility] Hospital Arterial [facility] - patency Wrist [facility] artery --pre Hospital arterial puncture NASAL [id number] TO AND READ BACK BYJEF ALAMO RN at 0908 by SAUL STOUT [id number] ID Date Data Source [id number] 11/25/2018 09:03:28 AM EDT [facility] Received telephone order from Dr. Hills to d/c cardiac monitoring. Name Value Range Interpretation Code Description Data [facility] rce(s) Supporting Document(s ) ID Date Data Source [id number] 11/25/2018 07:41:30 AM EDT [facility] Bedside and Verbal shift change report carol Carballo RN (oncoming nurse) Shawn IPTTS (offgoing nurse). Report included the following information SBAR,Kardex, Intake/Output, MAR, Recent Results and Med Rec Status. Name Value Range Interpretation Code Description Data [facility] rce(s) Supporting Document(s ) ID Date Data Source [id number] 11/24/2018 07:07:19 PM EDT [facility] Bedside and Verbal shift change report g iven to Rojelio Strickland RN (oncomingnurse) by Yuki Ohara RN (offgoing [facility]). Report included the following information SBAR,Intake/Output, MAR, Rec ent Results and Cardiac Rhythm NSR. Name Value Range Interpretation Code Description Data Harriett rce(s) Supporting Document(s ) ID Date Data Source [id number] 11/24/2018 04:13:49 PM EDT [facility] Asked to evaluate this patient for place ment of VAC to the Prevena dressing asper Dr. Kaye who placed the Provena dressing e arlier this AM to an abdominalsurgical site with large amount of serous exudate.VAC placed to 125mm/Hg continuous suction with connector.Treat as VAC dressing and nir tor exudate.Will follow with Dr. Kaye during this stay.Instructions given to Justin Moore. Name Value Range Interpretation Code Description Data [facility] rce(s) Supporting Document(s ) ID Date Data Source [id number] 11/24/2018 03:53:26 PM EDT [facility] NUTRITION FOLLOW UPRECOMMENDATI ON:Continue Osmolite 1.5 @55 mL/hr with 125 mL free water q 3 hrASSESSMENT:Subjectiv e: RN reports pt tolerating EN at goal.Nutrition Rx: Osmolite 1.5@55mL/hr (1980 kcal, 83 gm pro, 269 gm CHO, 65gm fat, 1006 mL free water) with 125mL free H2O Q 3hrActive OrdersDiet DIET NPONutritionally Pertinent Labs:CMP:Lab ResultsComponent Value Date/Time NA 139 11/24/2018 08:10 AM K 3.4 (L) 11/24/2018 08:10 AM CL 98 2018 08:10 AM CO2 36 (H) 11/24/2018 08:10 AM AGAP 8 (L) 11/24/2018 08:10 AM GLU 154 ( H) 11/24/2018 08:10 AM BUN 9 11/24/2018 08:10 AM CREA 0.31 (L) 11/24/2018 08:10 AM GFR AA >60 11/24/2018 08:10 AM GFRNA >60 11/24/2018 08:10 AM CA 9.5 11/24/2018 08 :10 AM MG 1.8 11/24/2018 08:10 AM ALB 2.7 (L) 11/24/2018 08:10 AM TP 5.9 (L) 9 08:10 AM GLOB 3.2 11/24/2018 08:10 AM AGRAT 0.8 11/24/2018 08:10 AM SGOT 13 (L) 11/13 08:10 AM ALT 25 11/24/2018 08:10 AMNutritionally Significant Meds:sensipa r, reglan, solumedrolWeight: stableLast 3 Recorded Weights in this Encounter 11/22 0555 11/23/18 0538 11/24/18 0605Weight: 58.4 kg (128 lb 11.2 oz) 59.2 kg (130 lb 8 oz) 59.4 kg (130 lb 14.4 oz)GI: post-op ileus improved and tolerating feeds per GISkin:serosanguinous drainage from abd surgical gastrostomy site% Meals consume d:Patient Vitals for the past 100 hrs: % Diet Eaten11/24/18 0726 0 %Fluid Intake:Intak e/Output Summary (Last 24 hours) at 11/24/2018 1452Last data filed at 11/24/2018 1203Gro ss per 24 hourIntake 1525 mlOutput 3350 mlNet -1825 mlNUTRITION DIAGNOSIS:Remains same : increased protein and energy needsINTERVENTION:Continue Osmolite 1.5 @55 mL/hr (1980 kcal, 83 gm pro, 269 gm CHO, 65gm fat, 1006 mL free water), with 125 mL free water q 3hr.GOALS:Meet increased needs with EN at goal rate throughout LO SMONITOR/EVALUATE:Adjust EN as appropriate.DISCHARGE PLAN:EN as current ly orderedFrances R YINA Espinoza Name Value Range Interpretation Code Description Data Harriett rce(s) Supporting Document(s ) ID Date Data Source [id number] 11/24/2018 03:53:15 PM EDT [facility] Problem: Nutrition DeficitGoal: *Optimiz e nutritional statusDescriptionConsumption of >50% meals/snacks/supplements daily wit hin 3-7 daysOutcome: Progressing Towards GoalCurrent EN meeting estimated needs.S uggest continuing Osmolite 1.5 @55 mL/hr with 125 mL free water q 3hr. Name Value Range Interpretation Code Description Data Harriett rce(s) Supporting Document(s ) ID Date Data Source [id number] 11/24/2018 02:02:44 PM EDT [facility] ID Progress Note11/24/2018Subjective:Awak e non verbalAfebrileWbc still elevated..Unable to provide any historyO bjective:Vitals:Patient Vitals for the past 24 hrs: BP Temp Pulse Resp SpO2 Haakei13 1124 128/64 98 F (36.7 C) 80 18 91 % -11/24/18 0726 (!) 156/94 97.9 F (36.6 C) 85 18 91 % -11/24/18 0605 - - - - - 59.4 kg (130 lb 14.4 oz)11/24/18 0506 (!) 129 /97 97.5 F (36.4 C) 90 18 90 % -11/24/18 0025 (!) 129/91 96.9 F (36.1 C) 75 - 9 3 % -11/23/18 1955 150/90 98.1 F (36.7 C) 85 20 91 % -11/23/18 1555 135/85 97.3 F (36.3 C) 75 20 91 % -Tmax: Temp (24hrs), Av.6 F (36.4 C), Min:96.9 F (36.1 C), Max:98.1 F(36.7 C)Physical Exam:General: Awake non verbal cooperat britni, no distressEyes: Conjunctivae/corneas clear. PERRLNeck: Supple, symmetrical, t rachea midline, no adenopathyLungs: Bilateral breath sounds with basal crack les..Heart: Regular rate and rhythm, S1, S2 normalAbdomen: Soft, non-tender. Bowel sounds normal. No masses, Noorganomegaly.peg+ with dressingBack: No CVA tenderness.Extremities: Extremities normal, atraumatic, no cyanosis or edema .Pulses: 2+ and symmetric all extremities.Skin: Skin color, texture, t urgor normal. No rashes or lesionsLymph nodes: Cervical, supraclavicular, and ax illary nodes normal.Current Facility-Administered MedicationsMedicat ion Dose Route Frequency vancomycin (VANCOCIN) 1,250 mg in 0.9% sodium chlor wade 250 mL IVPB 1,250 mgIntraVENous Q12H [START ON 11/25/2018] pantoprazole (LAKSHMI NIX) granules for oral suspension 40mg 40 mg Per G Tube ACB [START ON 11/25/2018] met hylPREDNISolone (PF) (SOLU-MEDROL) injection 20 mg 20mg IntraVENous DAILY LORazepam (ATIVAN) tablet 0.5 mg 0.5 mg Per G Tube QHS sucralfate (CARAFATE) tablet 1 g 1 g Per G Tube AC&HS albuterol-ipratropium (DUO-NEB) 2.5 MG-0.5 MG/3 ML 3 mL Nebul ization Q6HWA RT metoclopramide HCl (REGLAN) injection 10 mg 10 mg IntraVENous Q8H piperacillin-tazobactam (ZOSYN) 3.375 g in 0.9% sodium chloride (MBP/ADV) 100mL MBP 3.375 g IntraVENous Q8H valproate (DEPACON) 250 mg in 0.9% sodium chloride 50 mL IVPB 250 mgIntraVENous Q12H albuterol-ipratropium (DUO-NEB) 2.5 MG-0 .5 MG/3 ML 3 mL Nebulization Q4H PRN cinacalcet (SENSIPAR) tablet 60 mg 60 m g Oral DAILY budesonide (PULMICORT) 500 mcg/2 ml nebulizer suspension 500 mcg N ebulizationBID RTLabs:Recent Labs 11/23/1904WB C 13.8* 12.6* 14.1*HGB 13.7* 13.1* 12.5*PLT 198 171 168BUN 9 10 16CREA 0.31* 0.32* 0 .33*SGOT 13* 19 16AP 85 62 46TBILI 0.6 0.8 0.9Cultures:Lab ResultsComponent Value D ate/Time Culture result: NO GROWTH 2 DAYS 11/20/2018 09:00 AM Culture result: NO G ROWTH 5 DAYS 11/07/2018 08:10 PM Culture result: NO GROWTH 5 DAYS 11/07/2018 08:0 0 PMRadiology:No results found.Assessment: Sepsis POA Aspiration pneumonia Dyspha jaydon s/p peg placement COPD S/p PEG placement IleusPlan:1. Continue Iv vanc omycin and zosyn.Pantera Beauchamp 20182:01 PM Name Value Range Interpretation Code Description Data Harriett rce(s) Supporting Document(s ) ID Date Data Source [id number] 11/24/2018 01:48:07 PM EDT [facility] Progress NoteMID-[facility] ,[facility].Krystian Monae MD., F.C.C.P.Stella Hamilton MD., F.C.C.P. [address] [place] [id number] [place] [address] [phone]: Evelio Carlin Sex: male DOA: 11/07/2018Da te of : 1950 Age: 68 y.o. LOS: LOS: 16 daysSubjective:Mr. Maximiliano mata is a 68 y.o. year old male who is being seen for PNEUMONIA ANDCOPD , HE IS MORE AWAKE AND ALERT TODAY .Objective:Vital Signs:Patient Vitals fo r the past 24 hrs: BP Temp Pulse Resp SpO2 Eswuoh15/12/19 1124 128/64 98 F (36.7 C) 80 18 91 % -11/24/18 0726 (!) 156/94 97.9 F (36.6 C) 85 18 91 % -11/24/18 0605 - - - - - 59.4 kg (130 lb 14.4 oz)11/24/18 0506 (!) 129/97 97.5 F (36.4 C) 90 18 90 % -11/24/18 0025 (!) 129/91 96.9 F (36.1 C) 75 - 93 % -11/23/18 1955 150/90 98.1 F (36.7 C) 85 20 91 % -11/23/18 1555 135/85 97.3 F (36.3 C) 75 20 91 % -Pulse OX:S pO2 Readings from Last 6 Encounters:11/24/18 91%09/26/15 96%@LASTSAO2(6)@Physical Exa m:MORE AWAKE , LESS SOB General: Alert, cooperative, no distress, appears stated age. Head: Normocephalic, without obvious abnormali ty, atraumatic. Eyes: Conjunctivae/corneas clear. PERRL, EOMs intact. Nose: Nares normal. No drainage or sinus tenderness Thr oat: Lips, mucosa, and tongue normal Neck: Supple, symmetrical, trachea midline, no adenopathy,thyroid: no enlargement/tenderness/nodules, no carot id bruit and no JVD. Lungs: RAKES +L L L , WHEEZING ARE LESS , AIR EXCHANG E ISIMPROVED to auscultation bilaterally. Chest Wall: No tenderness or deformity . Heart: Regular rate and rhythm, S1, S2 normal, no murmur, click,rub or g allop. Abdomen: Soft, non-tender. Bowel sounds normal. No masses, No organomeg edison. Extremities: Extremities normal, atraumatic, no cyanosis or edema. Pulses: 4+ bilaterally. Skin: Skin color, texture, turgor normal. No rashes or lesions. Neurologic: CNII-XII intact. No focal motor or sensory defici t.Intake and Output:Last three shifts: 11/22 1901 - 11/24 0700In: 1050 [I.V.:400]Out: 5250 [Urine:5250]Lab Results:Recent Results (from the past 24 hour(s))MAGNESIUM Manuel ection Time: 11/24/18 8:10 AMResult Value Ref Range Magnesium 1.8 1.6 - 2.6 mg/Oscar BC WITH AUTOMATED DIFF Collection Time: 11/24/18 8:10 AMResult Value Ref Range WBC 13.8 (H) 4.8 - 10.6 K/uL RBC 4.19 (L) 4.70 - 6.00 M/uL HGB 13.7 (L) 14.0 - 18. 0 g/dL HCT 39.4 (L) 42.0 - 52.0 % MCV 94.0 81.0 - 94.0 FL MCH 32.7 27.0 - 35.0 PG M CHC 34.8 30.7 - 37.3 g/dL RDW 14.3 (H) 11.5 - 14.0 % PLATELET 198 130 - 400 K/uL MPV 9 .4 9.2 - 11.8 FL NEUTROPHILS 87 (H) 48.0 - 72.0 % LYMPHOCYTES 8 (L) 18.0 - 40.0 % M ONOCYTES 5 2.0 - 12.0 % EOSINOPHILS 0 0.0 - 7.0 % BASOPHILS 0 0.0 - 3.0 % ABS. NEUTR OPHILS 11.9 (H) 1.5 - 6.6 K/UL ABS. LYMPHOCYTES 1.1 (L) 1.5 - 3.5 K/UL ABS. MONOCYTES 0.7 0.0 - 1.0 K/UL ABS. EOSINOPHILS 0.0 0.0 - 0.7 K/UL ABS. BASOPHILS 0.0 0. 0 - 0.1 K/UL DF AUTOMATED IMMATURE GRANULOCYTES 1 0.0 - 2.0 %METABOLIC PANE L, COMPREHENSIVE Collection Time: 11/24/18 8:10 AMResult Value Ref Range Sodium 139 136 - 145 mmol/L Potassium 3.4 (L) 3.5 - 5.1 mmol/L Chloride 98 98 - 107 mmol/L CO2 3 6 (H) 21 - 32 mmol/L Anion gap 8 (L) 10 - 20 mmol/L Glucose 154 (H) 74 - 106 mg/dL BU N 9 7 - 18 mg/dL Creatinine 0.31 (L) 0.70 - 1.30 mg/dL GFR est AA >60 >60 ml/min/1.7 3m2 GFR est non-AA >60 >60 ml/min/1.73m2 Calcium 9.5 8.5 - 10.1 mg/dL Bilirubin, total 0.6 0.2 - 1.0 mg/dL ALT (SGPT) 25 13 - 61 U/L AST (SGOT) 13 (L) 15 - 37 U/L Alk . phosphatase 85 45 - 117 U/L Protein, total 5.9 (L) 6.4 - 8.2 g/dL Albumin 2.7 (L) 3 .5 - 4.7 g/dL Globulin 3.2 1.7 - 4.7 g/dL A-G Ratio 0.8 0.7 - 2.8ABG:Recent Labs 11/13235PH 7.45PCO2 38PO2 73*HCO3 26Recent Glucose Results:Lab ResultsComponent Seema ue Date/Time GLU 154 (H) 11/24/2018 08:10 AM@LABAPCYTOINTERPRETATION@CULTURESAll M icro Results Procedure Component Value Units Date/Time CULTURE, URINE [[id number]] Col lected: 11/20/18 09 Order Status: Completed Specimen: Urine from [place] Sp ecimen Updated:11/22/18741 Special Requests: NO SPECIAL REQUESTS Culture r esult: NO GROWTH 2 DAYS CULTURE, BLOOD [[id number]] Collected: 11/07/181999 Or bassem Status: Completed Specimen: Blood Updated: 11/12/18640 Special Request s: NO SPECIAL REQUESTS Culture result: NO GROWTH 5 DAYS CULTURE, BLOOD [[id number]] Collected: 11/07/182009 Order Status: Completed Specimen: Blood Updated: 640 Special Requests: NO SPECIAL REQUESTS Culture result: NO GROWTH 5 DA YS STREP PNEUMO AG, URINE [[id number]] Collected: 11/09/18699 Order Status: Completed Specimen: Other from Urine, random Updated: Strep pne umo Ag, urine NEGATIVE Comment:Presumptive negative suggests nocurrent or recent pn eumococcal infection.Infection due to S.pneumonia cannot beruled out since the antigen presentin the sample may be below the detectionlimit of the test. This tasha t is notintended as a substitute for gram stainand bacterial culture Method IMMU NOCHROMATOGRAPHIC MEMBRANE ASSAY LEGIONELLA PNEUMOPHILA AG, URINE [[id number]] [facility] mikel: 11/08/18 1145 Order Status: Completed Specimen: Urine Updated: 11/09/18 1048 Legionella Ag, urine NEGATIVE Comment:PRESUMPTIVE NEGATIVE forL.pneumo phila Serogroup 1Antigen in urine,suggestingno recent or current inf ection.Infection due to Legionellacannot be ruled out since otherserogroups and spec ies may causedisease,antigen may not bepresent in urine in earlyinfection, an d the level ofantigen present in the urinemay be below the detectionlimit of the test. Method IMMUNOCHROMATOGRAPHIC MEMBRANE ASSAY CULTURE, URINE [[id number]] Collect ed: 11/07/18 193 Order Status: Canceled Specimen: Urine from Clean catchImages: @IMAGESENCORD@Xr Chest Sngl VResult Date: 11/22/2018History: PNEUMONIA Technique: P ortable chest x-ray 11/22/2018 8:03 AM Comparison:11/21/2018. FINDINGS: The exam is rotated. There is a small left pleural effusionwith probable infiltrate or atel ectasis. There is improved aeration of the rightlung since the prior. Evaluation of the cardiac silhouette is limited byprojection. The visualized osseous str uctures appear unremarkable.IMPRESSION: There is a small left pleural effusion with pr obable infiltrate oratelectasis. There is improved aeration of the right lung sinc e the prior.Xr Abd (kub)Result Date: 11/22/2018EXAM: XR ABD (KUB) INDICATION: ileus COMPARISON: None. FINDINGS: A supineradiograph of the abdomen shows a normal bowel gas pattern. No soft tissuemasses or pathologic calcification s are identified. The bones and soft tissuesare within normal limits. There i s moderate fecal material overlying the pelvis.There are skin kalpana along the midline.IMPRESSION: No dilated loops of bowel are identified to suggest obstruction.Xr Abd (kub)Result Date: 11/19/2018XR ABD (KUB)-SINGLE VIEW PRIOR: None HISTORY: E valuate for G-tube placementFINDINGS: The examination is limited-the pt is in an R AO/LPO position. A tubeoverlies the abdomen extending from the right lower quadrant to the left upperquadrant and whether this represents a gastric tube cannot be defi nitivelydetermined. The bowel gas pattern is nonspecific. No abnormally dilated loop ofbowel, bowel wall thickening, pneumatosis or free air is identified. No abnormalde nsities or calcifications are identified. There are midline surgical skinstaples i dentified. The visualized osseous structures are unremarkable.IMPRESSION: 1. Tube ov erlying the abdomen terminating in the region of stomach;as described and discussed ab ove on this single oblique view the exact locationof this tube cannot be determine d. 2. Otherwise unremarkable abdomen/KUB.Cta Chest W Or W Wo ContResult Date: 11/09/19 19Examination: CTA Chest ? PE angiography History: Hypoxia; rule out pneumoniavers us pulmonary embolism Priors: None Technique: Low-dose, multiplanar,helica l CTA chest was performed with bolus IV injection from lung apices tobases. 3D- reformatted images were obtained and reviewed on a dedicated viewingworkstation and di rectly supervised. Contrast: A total of 71 mL of Isovue-370was administered intravenou sly for this procedure. Findings: No evidence ofpulmonary embolism is seen. T here is decreased size of the right hemithorax fromchronic scarring and retr action with mediastinal shift left to right.Additional area of consolidation i s seen in the right lower lobe and suggestssuperimposed pneumonia with subs egmental atelectasis. Subsegmental atelectasisis also noted in the left jorge g base, with pleural parenchymal scarring. Lowlung volumes are seen. No pneumothora x seen. Aorta normal in caliber withoutaneurysm or dissection. Mediastin um no adenopathy. Mediastinal shift is seen inthe left and right as a result of chr onic changes in the right hemithorax.Heart shows no chamber enlargement or pericard ial effusion. No acute fracturesseen in the bony thorax, sternum, manubrium and rib cage. Multiple compressiondeformities are seen in the mid and lower thoracic spine , with superimposedspondyloarthropathy. Cannot exclude acute fracture.Impression : No evidence of pulmonary embolism Right lower lobe pneumoniasuggested. Incidenta l scarring and retraction in the right hemithorax fromremote/chronic inflammato ry disease and/or trauma. Bibasilar subsegmentalatelectasis. Report Electron ically Signed By: Pawel Zafar M.D. -11/08/2018 12:40 AMXr Chest PortResult D ate: 11/21/2018AP portable film of the chest clinical indication pneumonia Study is c ompared toprevious examination of November 19, 2018. There has been partial clearing o fstreaky changes seen at the right base. There has been interval development ofso me haziness at the left base as well as elevation of the left leaf of thediaphra gm. Heart size is difficult to evaluate.IMPRESSION: 1. Partial clearing of streaks at right base. 2. Haziness at leftbase which may represent infiltrateX r Chest PortResult Date: 11/19/2018History: Respiratory difficulty. FINDINGS: A fron krystian portable view of the chestis compared to the prior study of 11/07/2016. A large ga s-filled structure isnoted beneath the left diaphragm, unchanged, likely representin g the stomach.The cardiac silhouette is normal in size. There is again noted to be shift ofmediastinal structures to the right. There are some streaky and patchy changesat the right lung base not seen on the prior study and the possibility ofin filtrative change cannot be excluded. A few nonspecific left basilar streaksare note d as well. Prominence of the right hilum is unchanged and may merely carlos enrique a result o f the shift of mediastinal structures.IMPRESSION: New patchy opacit y at the right lung base may be infiltrative oratelectatic in nature. Few left basila r streaks are noted as well. Otherwisefindings similar.Xr Chest PortR esult Date: 11/07/2018XR CHEST PORT CLINICAL INDICATION PROVIDED:. "sob." COMPARISON: . 09/26/2015.FINDINGS:. The pericardial/cardiac silhouette is enlarg ed in the transversedimension. There is no pulmonary vascular congestion or interst itial edema.Linear density in the left lung base and faint densities in the right mi d tolower lung likely represent atelectasis. There is no lobar consolidation oreffusi on. There is no pneumothorax.IMPRESSION:. Bilateral lower lung atelectasis. No donna dence of consolidation oreffusion.Xr Abd Port 1 VResult Date: 11/21/2018Abdomen 2 views clinical indication ileus Study is compared to previousexamination of November 20, 2018 . There has been an interval decrease in boweldistention. Increased stool is note d in the rectal region. Skin clips are againnoted.IMPRESSION: 1. Interval decre ase in bowel distention. 2. Increased stool inrectal regionXr Abd Port 1 VResult Da te: 11/20/2018KUB one view(s) History: Ileus. Comparison: Yesterday. There is diffuse ileusof the small and large bowel which has increased involving the small bowel. Air and fecal material is noted in the rectosigmoid colon. The cecum appears to bein the right hemiabdomen but is otherwise unchanged. There is no evidence ofobstru ction, radiopaque gallstones, or kidney stones. The previously noted tubeoverlyi ng the abdomen is no longer seen.IMPRESSION: Increase of small bowel ileus.Medication s:Current Facility-Administered MedicationsMedication Dose Route Frequen cy vancomycin (VANCOCIN) 1,250 mg in 0.9% sodium chloride 250 mL IVPB 1,250 mgInt raVENous Q12H [START ON 11/25/2018] pantoprazole (PROTONIX) granules for ora l suspension 40mg 40 mg Per G Tube ACB LORazepam (ATIVAN) tablet 0.5 mg 0.5 mg Per G Tube QHS sucralfate (CARAFATE) tablet 1 g 1 g Per G Tube AC&HS methylPREDNIS olone (PF) (SOLU-MEDROL) injection 20 mg 20 mg IntraVENous Q8H albuterol-ipratropiu m (DUO-NEB) 2.5 MG-0.5 MG/3 ML 3 mL Nebulization Q6HWA RT metoclopramide HC l (REGLAN) injection 10 mg 10 mg IntraVENous Q8H piperacillin-tazobactam (ZOSYN) 3.3 75 g in 0.9% sodium chloride (MBP/ADV) 100mL MBP 3.375 g IntraVENous Q8H valproate (DEPACON) 250 mg in 0.9% sodium chloride 50 mL IVPB 250 mgIntraVENous Q12H albuter ol-ipratropium (DUO-NEB) 2.5 MG-0.5 MG/3 ML 3 mL Nebulization Q4H PRN cinacalcet (S ENSIPAR) tablet 60 mg 60 mg Oral DAILY budesonide (PULMICORT) 500 mcg/2 ml nebu lizer suspension 500 mcg NebulizationBID RTActive Problems: COPD (chronic obstru ctive pulmonary disease) ([facility]) (11/08/2018) Acute respiratory distress (11/08/2018) Pneumonia (11/08/2018) COPD exacerbation ([facility]) (11/08/2018)Assessment:COPD (chroni c obstructive pulmonary disease) ([facility]) (11/08/2018) Acute respiratory distress (11/08/2018) Pneumonia (11/08/2018) COPD exacerbation ([facility]) (11/08/2018) Acute r david failure combined,IMPROVING pneumonia L L L acute copd exacerbation P .. E . r uled out. BILATERAL BASAL ATELECTASES IMPROVING ASPRATIONS / DYSPHAGIA SEVERE CONSTIPATIONPLAN,Monitoring,Iv ZOSYN AND VANCOMYCIN D/C SOLUMEDROLbipap prn an d at night. SHORTY LOZANO QIDD/W nursing staff.1. G I FOLLOWING PATIENTKrystian Monae MD FGualbertoC.CGualbertoPGualbertoNovember 24, 20181:44 PM Name Value Range Interpretation Code Description Data Harriett rce(s) Supporting Document(s ) ID Date Data Source [id number] 11/24/2018 10:38:34 AM EDT [facility] Prevena neg pressure dressing applied.Wo und care nurse notified Name Value Range Interpretation Code Description Data Harriett rce(s) Supporting Document(s ) ID Date Data Source [id number] 11/24/2018 09:35:20 AM EDT [facility] Progress NotePatient: Evelio Carlin SSN: [id number] of : 1950 Age: 68 y.o. Sex: maleAdmit Date: Days Post-OpProcedure: Procedure(s):GASTROSTOMY TUBE PLACEMENT and cut toe and finger nailsSubjective:Patient non verbalObject britni:Visit VitalsBP (!) 156/94 (BP 1 Location: Left arm, BP Patient Position: At rest;H ead of bedelevated (Comment degrees))Pulse 85Temp 97.9 F (36.6 C)Resp 18Ht 5' 2" (1.575 m)Wt 59.4 kg (130 lb 14.4 oz)SpO2 91%BMI 23.94 kg/m Temp (24hrs), Av.5 F (36.4 C), Min:96.9 F (36.1 C), Max:98.1 F (36.7 C)Physical Exam:ABDOME N: soft, non-tender. Bowel sounds normal. No masses, no organomegaly,serosanguinous drainage from woundData Review: reviewed Consultants documentation, Nursing docum entation and I &OLab Data Reviewed:CBC w/Diff Recent Labs 11/23/1904 0 WBC 13.8* 12.6* 14.1*HGB 13.7* 13.1* 12.5*HCT 39.4* 38.8* 36.7*MCV 94.0 94.9* 95.3*PLT 198 171 168GRANS 87* 88* 90*LYMPH 8* 8* 7*EOS 0 0 0Chemistry Rece nt Labs 11/23/1904GLU 154* 147* -- 87NA 139 136 -- 141K 3.4* 3.7 -- 4.1CL 98 101 -- 104CO2 36* 30 28* 30BU N 9 10 -- 16CREA 0.31* 0.32* -- 0.33* Recent Labs 11/23/1904 0 CA 9.5 9.8 9.4ALB 2.7* 2.5* 2.4*TBILI 0.6 0.8 0.9AP 85 62 46SGOT 13* 19 16ALT 25 29 25Coagulation No results for input(s): PTP, INR, APTT in the last 72 hours.No lab exists for component: INREXTAssessment:Hospital Problems Princee r Reviewed Codes Class Noted POA COPD (chronic obstructive pulmonary disease) (HCC) ICD-10-CM: J44.9ICD-9-CM: 496 11/08/2018 Unknown Acute respiratory dist ress ICD-10-CM: R06.03ICD-9-CM: 518.82 11/08/2018 Unknown Pneumonia ICD-10-CM: J 18.9ICD-9-CM: 486 11/08/2018 Unknown COPD exacerbation (HCC) ICD-10-CM: J44.1ICD-9 -CM: 491.21 11/08/2018 UnknownPlan/Recommendations/Medical Deci elio Making:Breathing comfortablytolerating feedings but wound has serosanguinous dr reilly Dressing was changed 3times in each of last 2 shift, No purulent drainageWill t ry to obtain neg pressure suction deviceAdvance to 55ml/ hSigned By: Bay Kaye MD November 24, 2018 Name Value Range Interpretation Code Description Data Harriett rce(s) Supporting Document(s ) ID Date Data Source [id number] 11/24/2018 09:05:56 AM EDT [facility] GIPatient seen and examined. He is danielle ating tube feeds @ 45 cc/hr. There is nobleeding.VSSGen non-verbal, appears co mfortableAbd soft, abdominal binder in place. G-tube appears intact.Labs reviewed. Hem oglobin remains stable.Imp: aspiration pneumonia, s/p surgical g-tube placement with post op ileus, nowimproved and tolerating tube feeds.Plan: continue tub e feeds as tolerated. Name Value Range Interpretation Code Description Data Harriett rce(s) Supporting Document(s ) ID Date Data Source [id number] 11/24/2018 09:21:31 AM EDT [facility] Name Value Range Interpretation Description Data Sup porting Code Source(s) Document(s ) Sodium 139 136-145 [facility] - [Moles/volume] in mmol/L [facility] Serum or Plasma Hospital Potassium 3.4 3.5-5.1 Below low normal [facility] - [Moles/volume] in mmol/L [facility] Serum or Plasma Hospital Chloride 98 98-107 [facility] - [Moles/volume] in mmol/L [facility] Serum or Plasma Hospital Carbon dioxide, 36 21-32 Above high [facility] - total mmol/L normal [facility] [Moles/volume] in Hospital Serum or Plasma Anion gap in Serum 8 10-20 Below low normal [facility] - or Plasma mmol/L [facility] Hospital Glucose 154 74-106 Above high [facility] - [Mass/volume] in mg/dL normal [facility] Serum or Plasma Hospital Urea nitrogen 9 mg/dL 7-18 [facility] - [Mass/volume] in [facility] Serum or Plasma Hospital Creatinine 0.31 0.70-1. Below low normal [facility] - [Mass/volume] in mg/dL [facility] Serum or Plasma Hospital Glomerular >60 [facility] - filtration Community rate/1.73 sq M Hospital predicted among blacks [Volume Rate/Area] in Serum or Plasma by Creatinine-based formula (MDRD) Glomerular >60 [facility] - filtration Community rate/1.73 sq M Hospital predicted among non-blacks [Volume Rate/Area] in Serum or Plasma by Creatinine-based formula (MDRD) Calcium 9.5 8.5-10. [facility] - [Mass/volume] in mg/dL 1 [facility] Serum or Plasma [facility] Bilirubin.total 0.6 0.2-1.0 [facility] - [Mass/volume] in mg/dL [facility] Serum or Plasma Hospital Alanine 25 U/L 13-61 [facility] - aminotransferase Community [Enzymatic Hospital activity/volume] in Serum or Plasma Aspartate 13 U/L 15-37 Below low normal [facility] - aminotransferase Community [Enzymatic Hospital activity/volume] in Serum or Plasma by With P-5'-P Alkaline 85 U/L 45-117 [facility] - phosphatase Community [Enzymatic Hospital activity/volume] in Serum or Plasma Protein 5.9 6.4-8.2 Below low normal [facility] - [Mass/volume] in g/dL [facility] Serum or Plasma [facility] Albumin 2.7 3.5-4.7 Below low normal [facility] - [Mass/volume] in g/dL [facility] Serum or Plasma by [facility] Bromocresol purple (BCP) dye binding method Globulin 3.2 1.7-4.7 [facility] - [Mass/volume] in g/dL [facility] Serum by [facility] calculation Albumin/Globulin 0.8 0.7-2.8 [facility] - [Mass Ratio] in [facility] Serum or Plasma Hospital ID Date Data Source [id number] 11/24/2018 09:21:31 AM EDT [facility] Name Value Range Interpretation Description Data Sup porting Code Source(s) Document(s ) Magnesium 1.8 mg/dL 1.6-2.6 [facility] - [Mass/volume] Community in Serum or [facility] Plasma ID Date Data Source [id number] 11/24/2018 09:06:27 AM EDT [facility] Name Value Range Interpretation Description Data Sup porting Code Source(s) Document(s ) Leukocytes 13.8 4.8-10.6 Above high normal [facility] - [#/volume] in K/uL [facility] Blood by Hospital Automated count Erythrocytes 4.19 4.70-6.0 Below low normal [facility] - [#/volume] in M/uL 0 [facility] Blood by Hospital Automated count Hemoglobin 13.7 14.0-18. Below low normal [facility] - [Mass/volume] in g/dL 0 [facility] Blood [facility] Hematocrit 39.4 % 42.0-52. Below low normal [facility] - [Volume 0 Community Fraction] of Hospital Blood by Automated count Erythrocyte mean 94.0 FL 81.0-94. [facility] - corpuscular 0 Community volume [Entitic Hospital volume] by Automated count Erythrocyte mean 32.7 PG 27.0-35. [facility] - corpuscular 0 [facility] hemoglobin Hospital [Entitic mass] by Automated count Erythrocyte mean 34.8 30.7-37. [facility] - corpuscular g/dL 3 [facility] hemoglobin Hospital concentration [Mass/volume] by Automated count Erythrocyte 14.3 % 11.5-14. Above high normal [facility] - distribution 0 Community width [Ratio] by Hospital Automated count Platelets 198 K/uL 130-400 [facility] - [#/volume] in [facility] Blood by Hospital Automated count Platelet mean 9.4 FL 9.2-11.8 [facility] - volume [Entitic Community volume] in Blood Hospital by Automated count Segmented 87 % 48.0-72. Above high normal [facility] - neutrophils/100 0 Community leukocytes in Hospital Blood Lymphocytes/100 8 % 18.0-40. Below low normal [facility] - leukocytes in 0 [facility] Blood Hospital Monocytes/100 5 % 2.0-12.0 [facility] - leukocytes in [facility] Blood [facility] Eosinophils/100 0 % 0.0-7.0 [facility] - leukocytes in [facility] Blood Hospital Basophils/100 0 % 0.0-3.0 [facility] - leukocytes in [facility] Blood [facility] Segmented 11.9 1.5-6.6 Above high normal [facility] - neutrophils K/UL Community [#/volume] in Hospital Blood Lymphocytes 1.1 K/UL 1.5-3.5 Below low normal [facility] - [#/volume] in [facility] Blood Hospital Monocytes 0.7 K/UL 0.0-1.0 [facility] - [#/volume] in [facility] Blood Hospital Eosinophils 0.0 K/UL 0.0-0.7 [facility] - [#/volume] in [facility] Blood [facility] Basophils 0.0 K/UL 0.0-0.1 [facility] - [#/volume] in [facility] Differential [facility] - cell count [facility] Immature 1 % 0.0-2.0 [facility] - granulocytes/100 Community leukocytes in Hospital Blood by Automated count ID Date Data Source [id number] 11/24/2018 07:05:04 AM EDT [facility] Bedside shift change report given to Teresa Ohara RN (oncoming nurse) Be Bello RN (offgoing nurse). Report incl uded the following informationSBAR, Kardex, Procedure Summary, Intake/Output and Car diac Rhythm NSr. Name Value Range Interpretation Code Description Data Harriett rce(s) Supporting Document(s ) ID Date Data Source [id number] 11/23/2018 07:31:37 PM EDT [facility] Bedside and Verbal shift change report g iven to NANCY De La Vega (oncoming nurse) Israel Alamo RN (offgoing nurse). Report included the following information SBAR, Kardex,Intake/Output, MAR, Recent Results and Cardiac Rhythm NSR. Indorsed to the nextshift to change abd dressing q4h PRN as per MD order. Name Value Range Interpretation Code Description Data Harriett rce(s) Supporting Document(s ) ID Date Data Source [id number] 11/23/2018 03:24:33 PM EDT [facility] PULMONARY/ CCM- Consult NotePatient: Ivelisse Carlin Sex: male DOA: 11/07/2018Date of : 1 Age: 68 y.o. LOS: LOS: 15 daysHPI: step down.Evelio Carlin is a 68 y.o. male who has been seen for resp failure.7:31 PM: Evelio Carlin is a 68 y.o. male with h/o COPD, GERD,hyperparathyroidism, mental retarda tion, Pneumonia, pulmonary embolism, andschizophrenia who presents to the ED via EMS for shortness of breath andwheezing. Per triage note patient was given Duo-Ne b and Solu-Medrol 40 mg IM atfacility. 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 Authorizing Providermultivitamin (ONE A DAY) tablet Take 1 Tab by mouth daily. Yes Provider,Historicalclorazepate (TRANXENE ) 3.75 mg tablet Take by mouth nightly. Yes Provider,Historicalalbuterol-ipratro pium (DUO-NEB) 2.5 mg-0.5 mg/3 ml nebu 3 mL by Nebulizationroute every six (6) hours as needed. Yes Provider, HistoricallamoTRIgine (LAMICTAL) 25 mg t ablet Take 50 mg by mouth two (2) times a day.Yes Provider, Historicalcinacalcet ( SENSIPAR) 30 mg tablet Take 60 mg by mouth daily. Yes Provider,Historicalvalproat e (DEPAKENE) 250 mg/5 mL syrup Take 750 mg by mouth two (2) times a day.Provider, Jazmine Thao Known AllergiesHistory reviewed. No pertinent surgical history.History revie wed. No pertinent family history.Social HistorySocioeconomic History Marital st atus: SINGLE Spouse name: Not on file Number of children: Not on file Years o f education: Not on file Highest education level: Not on fileTobacco Use Smoking s tatus: Never Smoker Smokeless tobacco: Never UsedSubstance and Sexual Activity Alcoh ol use: No Drug use: NoReview of SystemsPertinent items are noted in the History of Present Illness.Physical Exam:Current medications:Current Facilit y-Administered Medications: sucralfate (CARAFATE) tablet 1 g, 1 g, Per G Tube, AC&HS, Letty Kaye MD, 1 g at 11/23/18 1146 methylPREDNISolone (PF) (SOLU-MED ROL) injection 20 mg, 20 mg, IntraVENous,Q8H, Krystian Monae MD, 20 mg at 11/23/18 130 9 albuterol-ipratropium (DUO-NEB) 2.5 MG-0.5 MG/3 ML, 3 mL, Nebulization, Q6HW ANTOINETTE, Stella Hamilton MD, Stopped at 11/23/18 1438 LORazepam (ATIVAN) injection 0.5 mg, 0.5 mg, IntraVENous, QHS, [place], , 0.5 mg at 11/22/18 2131 vancomycin (VANCOCIN) 1,000 mg in 0.9% sodium chloride 250 mL IVPB, 1,000 mg,IntraVENous, Q12H, Monica Gomez MD, Last Rate: 125 mL/hr at 11/23/18 1146,1,000 mg at 11/23/18 1146 pantoprazole (PROTONIX) 40 mg in sodium chloride 0.9% 10 mL injection, 40 mg,Int raVENous, Q12H, Letty Kaye MD, 40 mg at 11/23/18 0854 metoclopramide HCl (REGL AN) injection 10 mg, 10 mg, IntraVENous, Q8H, Letty Kaye MD, 10 mg at 11/23/18 13 09 piperacillin-tazobactam (ZOSYN) 3.375 g in 0.9% sodium chloride (MBP/ADV) 100mL MBP, 3.375 g, IntraVENous, Q8H, Natasha Dudley MD, Last Rate: 25 mL/hr at11/23/18 1040, 3.375 g at 11/23/18 1040 valproate (DEPACON) 250 mg in 0.9% sodium chloride 50 mL IVPB, 250 mg,IntraVENous, Q12H, Letty Kaye MD, Last Rate: 50 mL/hr at 11/23/18 0851,250 mg at 11/23/18 0851 0.9% sodium chloride 1,000 mL with mvi, adult no.4 with vit K 10 mL, [id number] mg, folic acid 1 mg infusion, , IntraVENous, Q24H, Letty Kaye MD, LastRate: 100 mL/hr at 11/22/18 1700 albuterol-iprat ropium (DUO-NEB) 2.5 MG-0.5 MG/3 ML, 3 mL, Nebulization, Q4HPRN, Letty Kaye M D, 3 mL at 11/19/18 0602 cinacalcet (SENSIPAR) tablet 60 mg, 60 mg, Oral, DA PIERRE, Letty Kaye MD,60 mg at 11/23/18 0854 budesonide (PULMICORT) 500 mcg/2 ml nebulizer suspension, 500 mcg,Nebulization, BID RT, Artemio Kaye MD, 500 mcg at 11/23/18 0827DataVisit VitalsBP (!) 161/98 (BP 1 Location: Left arm, BP Patient Position: At rest)Pulse 91Temp 97.2 F (36.2 C)Resp 20Ht 5' 2" (1.575 m)Wt 59.2 kg (130 lb 8 oz)SpO2 90%BMI 23.87 kg/m Intake and Output:Date 699 - 11/23/1865811/23/18699 - 11/24/18 0659Shift 2443-3751 2654-9741 2 4 Hour Total 5142-5661 7511-3500 24 Hour TotalINTAKEI.V.(mL/kg/hr) 600(0.9) 600( 0.4) Volume (piperacillin-tazobactam (ZOSYN) 3.375 g in 0.9% sodium chloride(MBP/ADV) 100 mL MBP) 100 100 Volume (vancomycin (VANCOCIN) 1,000 mg in 0.9% sodium chlor wade 250 mL IVPB)250 250 Volume (acetaminophen (OFIRMEV) infusion 1,000 mg) 200 200 Volume (valproate (DEPACON) 250 mg in 0.9% sodium chloride 50 mL IVPB) 5 0 50NG/GT 435 435 250 250 Water Flush Volume (mL) (PEG/Gastrostomy Tube ) 125 125 250 250 Medication Volume (PEG/Gastrostomy Tube 11/17/18) 60 60 Intake (ml) (PEG/Gastrostomy Tube 11/17/18) 250 250Shift Total(mL/kg) 1035(17.7) 1 035(17.5) 250(4.2) 250(4.2)OUTPUTUrine(mL/kg/hr) 800(1.1) 1 900(2.7) 2700(1.9) Urine 1000 1000 Urine Voided 800 900 1700Shift Total(mL/kg) 80 0(13.7) 1900(32.1) 2700(45.6)NET 235 -1900 -1665 250 250Weight (kg) 58.4 59.2 59.2 59.2 59.2 59.2Pulse OX:SpO2 Readings from Last 6 Encounters:11/23/18 90%09/26/15 9 6%@LASTSAO2(6)@PHYSICAL EXAM:General: Lethargic,responding.Head: Normocephal ic, without obvious abnormality, atraumatic.Eyes: Conjunctivae clear, a nicteric sclerae. Pupils are equalNose: Nares normal. No drainage or sinus tende rness.Throat: Lips, mucosa, and tongue normal. No ThrushNeck: Supple, symmetr ical, no adenopathy, thyroid: non tender no carotid bruit and no JVD.Back: Symmet rodger, No CVA tenderness.Lungs: Scattered rhonchi,Chest wall: No tenderness or de formity. No Accessory muscle use.Heart: Regular rate and rhythm, no murmur, rub or gallop.Abdomen: Soft, non-tender. Not distended. Bowel sounds normal. No mass esExtremities: Extremities normal, atraumatic, No cyanosis. No edema. No c lubbingSkin: Texture, turgor normal. No rashes or lesions. Not JaundicedLymph n odes: Cervical, supraclavicular normal.Psych: Good insight. Not depressed. Not anxi ous or agitated.Neurologic: EOMs intact. No facial asymmetry. No aphasia or slurred speech.Most recent labs:Recent Labs 11/22/1905WB C 12.6* 14.1* 17.1*HGB 13.1* 12.5* 11.9*HCT 38.8* 36.7* 34.9*PLT 171 168 171Recent L abs 11/23/1911NA 136 -- 141 139K 3.7 -- 4.1 3.9CL 101 -- 104 105CO2 30 28* 30 30GLU 147* -- 87 104BUN 10 -- 16 17C SHILO 0.32* -- 0.33* 0.32*CA 9.8 -- 9.4 9.1MG 1.8 -- 1.6 1.7ALB 2.5* -- 2.4* 2.2*TBILI 0.8 -- 0.9 0.9SGOT 19 -- 16 21ALT 29 -- 25 26Recent Labs 11/22/18 1235PH 7.45PCO2 38PO2 73*HCO3 26ABG:Recent Labs 235PH 7.45PCO2 38PO2 73*H CO3 26Cultures:No results found for: SDESLab ResultsComponent Value Date/Time Culture result: NO GROWTH 2 DAYS 11/20/2018 09:00 AM Culture result: NO GROWTH 5 DAYS 019 08:10 PM Culture result: NO GROWTH 5 DAYS 11/07/2018 08:00 PMImages:Cta Chest W Or W Wo ContResult Date: 11/08/2018Examination: CTA Chest ? PE angiography History: Hypo magdy; rule out pneumoniaversus pulmonary embolism Priors: None Technique: Low-d ose, multiplanar,helical CTA chest was performed with bolus IV injection from lung apices tobases. 3D-reformatted images were obtained and reviewed on a [employer] d viewingworkstation and directly supervised. Contrast: A total of 71 mL of Isovue-370 was administered intravenously for this procedure. Findings: No evidence ofpulmo nary embolism is seen. There is decreased size of the right hemithorax fromchronic scarring and retraction with mediastinal shift left to right.Additional area of c onsolidation is seen in the right lower lobe and suggestssuperimposed pneumonia with subsegmental atelectasis. Subsegmental atelectasisis also noted in the left jorge g base, with pleural parenchymal scarring. Lowlung volumes are seen. No pneumothora x seen. Aorta normal in caliber withoutaneurysm or dissection. Mediastin um no adenopathy. Mediastinal shift is seen inthe left and right as a result of chr onic changes in the right hemithorax.Heart shows no chamber enlargement or pericard ial effusion. No acute fracturesseen in the bony thorax, sternum, manubrium and rib cage. Multiple compressiondeformities are seen in the mid and lower thoracic spine , with superimposedspondyloarthropathy. Cannot exclude acute fracture.Impression : No evidence of pulmonary embolism Right lower lobe pneumoniasuggested. Incidenta l scarring and retraction in the right hemithorax fromremote/chronic inflammato ry disease and/or trauma. Bibasilar subsegmentalatelectasis. Report Electron ically Signed By: Pawel Zafar M.D. -11/08/2018 12:40 AMXr Chest PortResult D ate: 11/07/2018XR CHEST PORT CLINICAL INDICATION PROVIDED:. "sob." COMPARISON: . 09/26/2015.FINDINGS:. The pericardial/cardiac silhouette is enlarg ed in the transversedimension. There is no pulmonary vascular congestion or interst itial edema.Linear density in the left lung base and faint densities in the right mi d tolower lung likely represent atelectasis. There is no lobar consolidation oreffusi on. There is no pneumothorax.IMPRESSION:. Bilateral lower lung atelectasis. No donna dence of consolidation oreffusion.Assessment/PlanActive Problem s: COPD (chronic obstructive pulmonary disease) ([facility]) (11/08/2018) Acute respir atory distress (11/08/2018) Pneumonia (11/08/2018) COPD exacerbation ([facility]) () Acute resp failure combined, pneumonia acute copd exacerbation pe rul ed out.PLAN,Monitoring,bipap prn for resp distressIvabx,Iv steroids taperedbipap p rn and at night.NebS/p peg,feeding started.D/w nursing staff.Pantera Munson 2018The billing code submitted in association with this evaluation also includes thetime to review patient's prior records, communicate with the physician team,obtain corroborating data, and discuss the risk and benefits of the proposedman agement plan with the patient and their family >30 minutes. Name Value Range Interpretation Code Description Data Harriett rce(s) Supporting Document(s ) ID Date Data Source [id number] 11/23/2018 02:53:10 PM EDT [facility] Progress NotePatient: Evelio Carlin SSN: [id number] of : 1950 Age: 68 y.o. Sex: maleAdmit Date: 11/07/20186 Days Post-OpProcedure: Procedure(s):GASTROSTOMY TUBE PLACEMENT and cut toe and finger nailsSubjective:Patient Non verbalObject britni:Visit VitalsBP (!) 161/98 (BP 1 Location: Left arm, BP Patient Position: At rest)P ulse 91Temp 97.2 F (36.2 C)Resp 20Ht 5' 2" (1.575 m)Wt 59.2 kg (130 lb 8 oz)SpO2 90 %BMI 23.87 kg/m Temp (24hrs), Av.8 F (36.6 C), Min:97.2 F (36.2 C), Max:98 .3 F (36.8 C)Physical Exam:ABDOMEN: soft, non-tender. Bowel sounds normal. No mass es, no organomegaly,Dressing changed 2 times today serosanguinous drainageData Review : reviewed Consultants documentation, Nursing documentation and I &OLab Data R eviewed:CBC w/Diff Recent Labs 11/22/1905WBC 12.6* 14.1* 17.1*HGB 13.1* 12.5* 11.9*HCT 38.8* 36.7* 34.9*MCV 94.9* 95.3* 95.6*PLT 171 168 17 1GRANS 88* 90* 94*LYMPH 8* 7* 4*EOS 0 0 0Chemistry Recent Labs 11/22/1905GLU 147* -- 87 104NA 136 -- 141 139K 3.7 -- 4.1 3.9CL 101 -- 104 105CO2 30 28* 30 30BUN 10 -- 16 17CREA 0.32* -- 0.33* 0.32* Recent Labs 11/22/1905CA 9.8 9.4 9.1ALB 2.5* 2.4* 2.2*TBILI 0.8 0.9 0.9AP 62 46 42*SGOT 19 16 21ALT 29 25 26Coagulation No results for input(s): PTP, INR, APTT in the last 72 hours.No lab exists for component: INREX TAssessment:Hospital Problems Never Reviewed Codes Class Noted POA COPD (chroni c obstructive pulmonary disease) (HCC) ICD-10-CM: J44.9ICD-9-CM: 496 11/08/2018 Unknown Acute respiratory distress ICD-10-CM: R06.03ICD-9-CM: 518.82 2018 Unknown Pneumonia ICD-10-CM: J18.9ICD-9-CM: 486 11/08/2018 Unknown [place] PD exacerbation (HCC) ICD-10-CM: J44.1ICD-9-CM: 491.21 11/08/2018 Unknown Plan/Recommendations/Medical Decision Making:advance tube feeding as protocol 10 ml Q 8 hours to goal of 55ml/hChange dressing prnSigned By: Mireya Green November 23, 2018 Name Value Range Interpretation Code Description Data Harriett rce(s) Supporting Document(s ) ID Date Data Source [id number] 11/23/2018 02:30:16 PM EDT [facility] ID Progress Note11/23/2018Subjective:Awak e non verbalAfebrileWbc trending down.Unable to provide any historyObjective:Vitals:P atient Vitals for the past 24 hrs: BP Temp Pulse Resp SpO2 Pxvwpu67/11/19 1133 (!) 161/98 97.2 F (36.2 C) 91 20 90 % -11/23/18 0828 - - - - 93 % -11/23/18 0810 (!) 158 /98 97.9 F (36.6 C) 77 18 92 % -11/23/18 0538 - - - - - 59.2 kg (130 lb 8 oz)11/13 05/03 0510 (!) 158/102 97.6 F (36.4 C) 81 18 91 % -11/22/18 2358 138/82 97.7 F (36.5 C) 70 18 94 % -11/22/182004 141/75 97.9 F (36.6 C) 74 18 92 % -11/22/18 1639 154/ 86 98.3 F (36.8 C) 84 18 94 % -Tmax: Temp (24hrs), Av.8 F (36.6 C), Min:97.2 F (36.2 C), Max:98.3 F(36.8 C)Physical Exam:General: Awake non verbal cooperat britni, no distressEyes: Conjunctivae/corneas clear. PERRLNeck: Supple, symmetrical, t rachea midline, no adenopathyLungs: Bilateral breath sounds with basal crack les..Heart: Regular rate and rhythm, S1, S2 normalAbdomen: Soft, non-tender. Bowel sounds normal. No masses, Noorganomegaly.peg+Back: No CVA tende rness.Extremities: Extremities normal, atraumatic, no cyanosis or edema.Pulses: 2+ and symmetric all extremities.Skin: Skin color, texture, turgor normal. No rashes or lesionsLymph nodes: Cervical, supraclavicular, and axillary nodes norm al.Current Facility-Administered MedicationsMedication Dose Route Frequen cy sucralfate (CARAFATE) tablet 1 g 1 g Per G Tube AC&HS methylPREDNISolone (PF) (S CHEN-MEDROL) injection 20 mg 20 mg IntraVENous Q8H albuterol-ipratropium ( DUO-NEB) 2.5 MG-0.5 MG/3 ML 3 mL Nebulization Q6HWA RT LORazepam (ATIVAN ) injection 0.5 mg 0.5 mg IntraVENous QHS vancomycin (VANCOCIN) 1,000 mg in 0.9% s odium chloride 250 mL IVPB 1,000 mgIntraVENous Q12H pantoprazole (PROTON IX) 40 mg in sodium chloride 0.9% 10 mL injection 40 mgIntraVENous Q12H metocl opramide HCl (REGLAN) injection 10 mg 10 mg IntraVENous Q8H piperacillin-tazobactam (ZOSYN) 3.375 g in 0.9% sodium chloride (MBP/ADV) 100mL MBP 3.375 g IntraVENous Q8H valproate (DEPACON) 250 mg in 0.9% sodium chloride 50 mL IVPB 250 mgIntraV ENous Q12H 0.9% sodium chloride 1,000 mL with mvi, adult no.4 with vit K 10 mL, t [id number] mg, folic acid 1 mg infusion IntraVENous Q24H albuterol-ipratropium (DUO-NEB) 2.5 MG-0.5 MG/3 ML 3 mL Nebulization Q4H PRN cinacalcet (SENSIP AR) tablet 60 mg 60 mg Oral DAILY budesonide (PULMICORT) 500 mcg/2 ml nebu lizer suspension 500 mcg NebulizationBID RTLabs:Recent Labs 17476 616WBC 12.6* 14.1* 17.1* 21.5*HGB 13.1* 12.5* 11.9* 1 3.5*PLT 171 168 171 167BUN 10 16 17 --CREA 0.32* 0.33* 0.32* --SGOT 19 16 21 --AP 62 46 42* --TBILI 0.8 0.9 0.9 --Cultures:Lab ResultsComponent Value Da te/Time Culture result: NO GROWTH 2 DAYS 11/20/2018 09:00 AM Culture result: NO G ROWTH 5 DAYS 11/07/2018 08:10 PM Culture result: NO GROWTH 5 DAYS 11/07/2018 08:0 0 PMRadiology:No results found.Assessment: Sepsis POA Aspiration pneumonia Dyspha jaydon s/p peg placement COPD S/p PEG placement IleusPlan:1. Continue Iv vanc omycin and zosyn.Pantera Beauchamp 20182:20 PM Name Value Range Interpretation Code Description Data Harriett rce(s) Supporting Document(s ) ID Date Data Source [id number] 11/23/2018 02:13:29 PM EDT [facility] Progress NoteNAME: Evelio JohnsoninDOB: 1950MRN: [id number]:Tolerating tube feeds at 35cc with minimal residual Objective:Visit VitalsBP (!) 161/98 (BP 1 Location: Left arm, BP Patient Position: At rest)Pulse 91Temp 97.2 F (36.2 C)Resp 20Ht 5' 2" (1.575 m)Wt 59.2 kg (130 lb 8 oz)SpO2 90%BMI 23.87 kg/m Intake/Output Summary (Last 24 hours) at 11/23/2018 141 1Last data filed at 11/23/2018 1200Gross per 24 hourIntake 1160 mlOutput 2700 mlNet -154 0 mlPHYSICAL EXAM:General: Awake, in no acute distressAbdomen: BS+ softExtremities: No c/c/eDATA:Recent Labs 11/22/1905WBC 12.6* 14.1*HGB 13.1* 12. 5*HCT 38.8* 36.7*PLT 171 168Recent Labs 11/23/1911NA 136 -- 141K 3.7 -- 4.1CL 101 -- 104CO2 30 28* 30BUN 10 -- 16CREA 0.32* -- 0 .33*GLU 147* -- 87CA 9.8 -- 9.4Recent Labs 11/22/1905SGOT 19 16AP 6 2 46TP 5.6* 5.7*ALB 2.5* 2.4*GLOB 3.1 3.3Radiology results:Xr Chest Sngl VResu lt Date: 11/22/2018History: PNEUMONIA Technique: Portable chest x-ray 9 8:03 AM Comparison:11/21/2018. FINDINGS: The exam is rotated. There is a small left p leural effusionwith probable infiltrate or atelectasis. There is improved aeration of the rightlung since the prior. Evaluation of the cardiac silhouette is limited byp rojection. The visualized osseous structures appear unremarkable.IMPRESSION: There is a small left pleural effusion with probable infiltrate oratelectasis. There is impro nathaly aeration of the right lung since the prior.Xr Abd (kub)Result Date: 11/22/2018 EXAM: XR ABD (KUB) INDICATION: ileus COMPARISON: None. FINDINGS: A supineradi ograph of the abdomen shows a normal bowel gas pattern. No soft tissuemasses or patholo gic calcifications are identified. The bones and soft tissuesare within normal limits . There is moderate fecal material overlying the pelvis.There are skin kalpana along the midline.IMPRESSION: No dilated loops of bowel are identified to suggest obstruct ion.Xr Abd (kub)Result Date: 11/19/2018XR ABD (KUB)-SINGLE VIEW PRIOR: None HISTORY: E valuate for G-tube placementFINDINGS: The examination is limited-the pt is in an R AO/LPO position. A tubeoverlies the abdomen extending from the right lower quadrant to the left upperquadrant and whether this represents a gastric tube cannot be defi nitivelydetermined. The bowel gas pattern is nonspecific. No abnormally dilated loop ofbowel, bowel wall thickening, pneumatosis or free air is identified. No abnormaldensi ties or calcifications are identified. There are midline surgical skinstaples identif ied. The visualized osseous structures are unremarkable.IMPRESSION: 1. Tube overly ing the abdomen terminating in the region of stomach;as described and discussed above on this single oblique view the exact locationof this tube cannot be determine d. 2. Otherwise unremarkable abdomen/KUB.Cta Chest W Or W Wo ContResult Date: 11/09/19 19Examination: CTA Chest ? PE angiography History: Hypoxia; rule out pneumoniavers us pulmonary embolism Priors: None Technique: Low-dose, multiplanar,helical CTA chest was performed with bolus IV injection from lung apices tobases. 3D-reformatted katja ges were obtained and reviewed on a dedicated viewingworkstation and directly supervis ed. Contrast: A total of 71 mL of Isovue-370was administered intravenously for this procedure. Findings: No evidence ofpulmonary embolism is seen. There is d ecreased size of the right hemithorax fromchronic scarring and retraction with mediastinal shift left to right.Additional area of consolidation is seen in the rig ht lower lobe and suggestssuperimposed pneumonia with subsegmental atelectasis. Subsegmental atelectasisis also noted in the left lung base, with pleural parenchymal scarring. Lowlung volumes are seen. No pneumothorax seen. Aorta normal in calib er withoutaneurysm or dissection. Mediastinum no adenopathy. Mediastinal shift is see n inthe left and right as a result of chronic changes in the right hemithorax.Heart sh ows no chamber enlargement or pericardial effusion. No acute fracturesseen in the bony thorax, sternum, manubrium and rib cage. Multiple compressiondeformities are seen in the mid and lower thoracic spine, with superimposedspondyloarthropathy. Cannot exclude acute fracture.Impression: No evidence of pulmonary embolism Right low er lobe pneumoniasuggested. Incidental scarring and retraction in the right hem ithorax fromremote/chronic inflammatory disease and/or trauma. Bibasilar subsegm entalatelectasis. Report Electronically Signed By: Pawel Zafar M.D. -11/08/2018 1 2:40 AMXr Chest PortResult Date: 11/21/2018AP portable film of the chest clinical vi cation pneumonia Study is compared toprevious examination of November 19, 2018. There nelson s been partial clearing ofstreaky changes seen at the right base. There has been interv al development ofsome haziness at the left base as well as elevation of the left le af of thediaphragm. Heart size is difficult to evaluate.IMPRESSION: 1. Partial clearing of streaks at right base. 2. Haziness at leftbase which may represent infiltrateX r Chest PortResult Date: 11/19/2018History: Respiratory difficulty. FINDINGS: A fron krystian portable view of the chestis compared to the prior study of 11/07/2016. A large ga s-filled structure isnoted beneath the left diaphragm, unchanged, likely representin g the stomach.The cardiac silhouette is normal in size. There is again noted to be shif t ofmediastinal structures to the right. There are some streaky and patchy changesat th e right lung base not seen on the prior study and the possibility ofinfiltrative singleton e cannot be excluded. A few nonspecific left basilar streaksare noted as well. Promin ence of the right hilum is unchanged and may merely carlos enrique a result of the shift of med iastinal structures.IMPRESSION: New patchy opacity at the right lung base may be in filtrative oratelectatic in nature. Few left basilar streaks are noted as well. Other wisefindings similar.Xr Chest PortResult Date: 11/07/2018XR CHEST PORT CLINICAL INDICATI ON PROVIDED:. "sob." COMPARISON:. 09/26/2015.FINDINGS:. The pericardial/car diac silhouette is enlarged in the transversedimension. There is no pulmona ry vascular congestion or interstitial edema.Linear density in the left lung ba se and faint densities in the right mid tolower lung likely represent atelectasi s. There is no lobar consolidation oreffusion. There is no pneumothorax.IMPRESSION:. Bi lateral lower lung atelectasis. No evidence of consolidation oreffusion.Xr Abd Port 1 VResult Date: 11/21/2018Abdomen 2 views clinical indication ileus Study is compared to pr eviousexamination of November 20, 2018. There has been an interval decrease in boweldisten tion. Increased stool is noted in the rectal region. Skin clips are againnoted.IMPRES ELIO: 1. Interval decrease in bowel distention. 2. Increased stool inrectal regionXr Abd Port 1 VResult Date: 11/20/2018KUB one view(s) History: Ileus. Comparison: Yesterday. There is diffuse ileusof the small and large bowel which has increased invo lving the small bowel. Airand fecal material is noted in the rectosigmoid colon. The cecum appears to bein the right hemiabdomen but is otherwise unchanged. There is no evidence ofobstruction, radiopaque gallstones, or kidney stones. The previously noted t ubeoverlying the abdomen is no longer seen.IMPRESSION: Increase of small bowel ileus. Pa tient Active Problem ListDiagnosis Code Parae sophageal hiatal hernia K44.9 COPD (chronic obstructive pulmonary disease) ([facility]) J44 .9 Acute respiratory distress R06.03 Pneumonia J18.9 COPD exacerbation ([facility]) J44.1Assessment: Ileus- resolving- tube feeds with no residual S/p surgical G-t ube Aspiration PNAPlan: Cont to advance tube feeds to goalSigned By: iMreya Patton 11/23/2018 2:11 PM Name Value Range Interpretation Code Description Data [facility] Supporting Document(s ) ID Date Data Source [id number] 11/23/2018 06:57:56 AM EDT [facility] Bedside and Verbal shift change report g iven to Nehemias Alamo RN (oncomingnurse) by Marni Regalado RN (offgoing nurse). Report included the followinginformation SBAR and Kardex. Name Value Range Interpretation Code Description Data [facility](s) Supporting Document(s ) ID Date Data Source [id number] 11/23/2018 06:22:25 AM EDT [facility] Name Value Range Interpretation Description Data Sup porting Code Source(s) Document(s ) Sodium 136 136-145 [facility] - [Moles/volume] in mmol/L [facility] Serum or Plasma Hospital Potassium 3.7 3.5-5.1 [facility] - [Moles/volume] in mmol/L [facility] Serum or Plasma Hospital Chloride 101 98-107 [facility] - [Moles/volume] in mmol/L [facility] Serum or Plasma Hospital Carbon dioxide, 30 21-32 [facility] - total mmol/L Community [Moles/volume] in Hospital Serum or Plasma Anion gap in Serum 9 10-20 Below low normal [facility] - or Plasma mmol/L [facility] Glucose 147 74-106 Above high [facility] - [Mass/volume] in mg/dL normal [facility] Serum or Plasma Hospital Urea nitrogen 10 7-18 [facility] - [Mass/volume] in mg/dL [facility] Serum or Plasma [facility] Creatinine 0.32 0.70-1. Below low normal [facility] - [Mass/volume] in mg/dL 30 [facility] Serum or Plasma Hospital Glomerular >60 [facility] - filtration Community rate/1.73 sq M Hospital predicted among blacks [Volume Rate/Area] in Serum or Plasma by Creatinine-based formula (MDRD) Glomerular >60 [facility] - filtration Community rate/1.73 sq M Hospital predicted among non-blacks [Volume Rate/Area] in Serum or Plasma by Creatinine-based formula (MDRD) Calcium 9.8 8.5-10. [facility] - [Mass/volume] in mg/dL 1 [facility] Serum or Plasma Hospital Bilirubin.total 0.8 0.2-1.0 [facility] - [Mass/volume] in mg/dL [facility] Serum or Plasma Hospital Alanine 29 U/L 13-61 [facility] - aminotransferase Community [Enzymatic Hospital activity/volume] in Serum or Plasma Aspartate 19 U/L 15-37 [facility] - aminotransferase Community [Enzymatic Hospital activity/volume] in Serum or Plasma by With P-5'-P Alkaline 62 U/L 45-117 [facility] - phosphatase Community [Enzymatic Hospital activity/volume] in Serum or Plasma Protein 5.6 6.4-8.2 Below low normal [facility] - [Mass/volume] in g/dL [facility] Serum or Plasma Hospital Albumin 2.5 3.5-4.7 Below low normal [facility] - [Mass/volume] in g/dL [facility] Serum or Plasma by [facility] Bromocresol purple (BCP) dye binding method Globulin 3.1 1.7-4.7 [facility] - [Mass/volume] in g/dL Community Serum by Hospital calculation Albumin/Globulin 0.8 0.7-2.8 [facility] - [Mass Ratio] in Community Serum or Plasma Hospital ID Date Data Source [id number] 11/23/2018 06:22:25 AM EDT [facility] Name Value Range Interpretation Description Data Sup porting Code Source(s) Document(s ) Magnesium 1.8 mg/dL 1.6-2.6 [facility] - [Mass/volume] Community in Serum or Hospital Plasma ID Date Data Source [id number] 11/23/2018 06:13:41 AM EDT [facility] Name Value Range Interpretation Description Data Sup porting Code Source(s) Document(s ) Leukocytes 12.6 4.8-10.6 Above high normal [facility] - [#/volume] in K/uL [facility] Blood by Hospital Automated count Erythrocytes 4.09 4.70-6.0 Below low normal [facility] - [#/volume] in M/uL 0 [facility] Blood by Hospital Automated count Hemoglobin 13.1 14.0-18. Below low normal [facility] - [Mass/volume] in g/dL 0 [facility] Blood [facility] Hematocrit 38.8 % 42.0-52. Below low normal [facility] - [Volume 0 Community Fraction] of Hospital Blood by Automated count Erythrocyte mean 94.9 FL 81.0-94. Above high normal [facility] - corpuscular 0 [facility] volume [Entitic Hospital volume] by Automated count Erythrocyte mean 32.0 PG 27.0-35. [facility] - corpuscular 0 [facility] hemoglobin Hospital [Entitic mass] by Automated count Erythrocyte mean 33.8 30.7-37. [facility] - corpuscular g/dL 3 [facility] hemoglobin Hospital concentration [Mass/volume] by Automated count Erythrocyte 14.1 % 11.5-14. Above high normal [facility] - distribution 0 Community width [Ratio] by Hospital Automated count Platelets 171 K/uL 130-400 [facility] - [#/volume] in [facility] Blood by Hospital Automated count Platelet mean 9.2 FL 9.2-11.8 [facility] - volume [Entitic Community volume] in Blood Hospital by Automated count Segmented 88 % 48.0-72. Above high normal [facility] - neutrophils/100 0 Community leukocytes in Hospital Blood Lymphocytes/100 8 % 18.0-40. Below low normal [facility] - leukocytes in 0 [facility] Monocytes/100 4 % 2.0-12.0 [facility] - leukocytes in [facility] Eosinophils/100 0 % 0.0-7.0 [facility] - leukocytes in [facility] Basophils/100 0 % 0.0-3.0 [facility] - leukocytes in [facility] Segmented 11.0 1.5-6.6 Above high normal [facility] - neutrophils K/UL Community [#/volume] in Hospital Blood Lymphocytes 1.0 K/UL 1.5-3.5 Below low normal [facility] - [#/volume] in [facility] Monocytes 0.5 K/UL 0.0-1.0 [facility] - [#/volume] in [facility] Eosinophils 0.0 K/UL 0.0-0.7 [facility] - [#/volume] in [facility] Basophils 0.0 K/UL 0.0-0.1 [facility] - [#/volume] in [facility] Differential [facility] - cell count [facility] Immature 0 % 0.0-2.0 [facility] - granulocytes/100 Community leukocytes in Hospital Blood by Automated count ID Date Data Source [id number] 11/22/2018 07:40:38 PM EDT [facility] Bedside and Verbal shift change report carol Grider RN (oncoming nurse) Israel Alamo RN (offgoing nurse). Report incl uded the following information SBAR, Kardex,Procedure Summary, Intake/Output, MAR, Recent Results and Cardiac Rhythm NSR. Name Value Range Interpretation Code Description Data Harriett rce(s) Supporting Document(s ) ID Date Data Source [id number] 11/22/2018 04:47:20 PM EDT [facility] ID Progress Note11/22/2018Subjective:Awak e non verbalAfebrileWbc trending down.Unable to provide any historyObjective:Vitals:P atient Vitals for the past 24 hrs: BP Temp Pulse Resp SpO2 Tozecy01/10/19 1639 154/ 86 98.3 F (36.8 C) 84 18 94 % -11/22/18 1334 - - - - 91 % -11/22/18 1152 144/73 97.5 F (36.4 C) 65 20 91 % -11/22/18 0837 139/86 97.9 F (36.6 C) 64 18 94 % -01/31 0555 - - - - - 58.4 kg (128 lb 11.2 oz)11/22/18 0416 152/89 96.5 F (35.8 C ) 67 18 91 % -11/21/18 2345 135/82 97.6 F (36.4 C) 84 18 90 % -11/21/182049 - - - - 96 % -11/21/182018 146/87 97.8 F (36.6 C) 81 18 90 % -Tmax: Temp (24hrs), Av.6 F (36.4 C), Min:96.5 F (35.8 C), Max:98.3 F(36.8 C)Physical Exam:Genera l: Awake non verbal cooperative, no distressEyes: Conjunctivae/corneas sudhakar r. PERRLNeck: Supple, symmetrical, trachea midline, no adenopathyLungs: Bilateral breath sounds with basal crackles..Heart: Regular rate and rhythm, S1, S2 normalAb domen: Soft, non-tender. Bowel sounds normal. No masses, Noorganomegaly.peg=B ack: No CVA tenderness.Extremities: Extremities normal, atraumatic, no cyano sis or edema.Pulses: 2+ and symmetric all extremities.Skin: Skin color, texture, t urgor normal. No rashes or lesionsLymph nodes: Cervical, supraclavicular, and ax illary nodes normal.Current Facility-Administered MedicationsMedicat ion Dose Route Frequency acetaminophen (OFIRMEV) infusion 1,000 mg 1,000 mg In traVENous Q6H sucralfate (CARAFATE) tablet 1 g 1 g Per G Tube AC&HS methylPREDNISol one (PF) (SOLU-MEDROL) injection 20 mg 20 mg IntraVENous Q8H albuterol-ipratropium ( DUO-NEB) 2.5 MG-0.5 MG/3 ML 3 mL Nebulization Q6HWA RT LORazepam (ATIVAN ) injection 0.5 mg 0.5 mg IntraVENous QHS vancomycin (VANCOCIN) 1,000 mg in 0.9% s odium chloride 250 mL IVPB 1,000 mgIntraVENous Q12H pantoprazole (PROTON IX) 40 mg in sodium chloride 0.9% 10 mL injection 40 mgIntraVENous Q12H metocl opramide HCl (REGLAN) injection 10 mg 10 mg IntraVENous Q8H piperacillin-tazobactam (ZOSYN) 3.375 g in 0.9% sodium chloride (MBP/ADV) 100mL MBP 3.375 g IntraVENous Q8H valproate (DEPACON) 250 mg in 0.9% sodium chloride 50 mL IVPB 250 mgIntraV ENous Q12H 0.9% sodium chloride 1,000 mL with mvi, adult no.4 with vit K 10 mL, t [id number] mg, folic acid 1 mg infusion IntraVENous Q24H albuterol-ipratropium (DUO-NEB) 2.5 MG-0.5 MG/3 ML 3 mL Nebulization Q4H PRN cinacalcet (SENSIP AR) tablet 60 mg 60 mg Oral DAILY budesonide (PULMICORT) 500 mcg/2 ml nebu lizer suspension 500 mcg NebulizationBID RTLabs:Recent Labs [id number] 6 11/19/1918WBC 14.1* 17.1* 21.5* 20.6* 23.9*HGB 12.5* 11.9* 13.5* 12.9* 15.2PLT 168 171 167 149 175BUN 16 17 -- 18 5*CREA 0.33* 0.32* -- 0.41* 0.52*SGOT 16 21 -- 19 31AP 46 42* -- 41* 60TBILI 0.9 0.9 -- 0.8 1.0Cultures:Lab ResultsComponent Value Date/Time Culture result: NO GROWT H 2 DAYS 11/20/2018 09:00 AM Culture result: NO GROWTH 5 DAYS 11/07/2018 08:10 PM Cul ture result: NO GROWTH 5 DAYS 11/07/2018 08:00 PMRadiology:Xr Chest Sngl VResult Date: 11/22/2018History: PNEUMONIA Technique: Portable chest x-ray 11/22/2018 8:03 AM C omparison:11/21/2018. FINDINGS: The exam is rotated. There is a small left pleural e ffusionwith probable infiltrate or atelectasis. There is improved aeration of the rightlung since the prior. Evaluation of the cardiac silhouette is limited byp rojection. The visualized osseous structures appear unremarkable.IMPRESSION: There is a small left pleural effusion with probable infiltrate oratelectasis. There is impro nathaly aeration of the right lung since the prior.Xr Abd (kub)Result Date: 11/22/2018 EXAM: XR ABD (KUB) INDICATION: ileus COMPARISON: None. FINDINGS: A supineradi ograph of the abdomen shows a normal bowel gas pattern. No soft tissuemasses or pat hologic calcifications are identified. The bones and soft tissuesare within normal limits. There is moderate fecal material overlying the pelvis.There are skin stap les along the midline.IMPRESSION: No dilated loops of bowel are identified to suggest obstruction.Assessment: Sepsis POA Aspiration pneumonia Dysphagia s/p peg placement COPD S/p PEG placement IleusPlan:1. Continue Iv vancomycin and zosyn.Pantera Beauchamp 20184:43 PM Name Value Range Interpretation Code Description Data Harriett rce(s) Supporting Document(s ) ID Date Data Source [id number] 11/22/2018 01:16:38 PM EDT [facility] - [facility] PULMONARY/ CCM- Consult NotePatient: Ivelisse Carlin Sex: male DOA: 11/07/2018Date of : 1 Age: 68 y.o. LOS: LOS: 14 daysHPI: step down.Evelio Carlin is a 68 y.o. male who has been seen for resp failure.7:31 PM: Evelio Carlin is a 68 y.o. male with h/o COPD, GERD,hyperparathyroidism, mental retarda tion, Pneumonia, pulmonary embolism, andschizophrenia who presents to the ED via EMS for shortness of breath andwheezing. Per triage note patient [facility] 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 Authorizing Providermultivitamin (ONE A DAY) tablet Take 1 Tab by mouth daily. Yes Provider,Historicalclorazepate (TRANXENE ) 3.75 mg tablet Take by mouth nightly. Yes Provider,Historicalalbuterol-ipratro pium (DUO-NEB) 2.5 mg-0.5 mg/3 ml nebu 3 mL by Nebulizationroute every six (6) hours as needed. Yes Provider, HistoricallamoTRIgine (LAMICTAL) 25 mg t ablet Take 50 mg by mouth two (2) times a day.Yes Provider, Historicalcinacalcet ( SENSIPAR) 30 mg tablet Take 60 mg by mouth daily. Yes Provider,Historicalvalproat e (DEPAKENE) 250 mg/5 mL syrup Take 750 mg by mouth two (2) times a day.Provider, Jazmine Thao Known AllergiesHistory reviewed. No pertinent surgical history.History revie wed. No pertinent family history.Social HistorySocioeconomic History Marital st atus: SINGLE Spouse name: Not on file Number of children: Not on file Years o f education: Not on file Highest education level: Not on fileTobacco Use Smoking s tatus: Never Smoker Smokeless tobacco: Never UsedSubstance and Sexual Activity Alcoh ol use: No Drug use: NoReview of SystemsPertinent items are noted in the History of Present Illness.Physical Exam:Current medications:Current Facilit y-Administered Medications: acetaminophen (OFIRMEV) infusion 1,000 mg, 1,000 mg, I ntraVENous, Q6H,Letty Kaye MD, Last Rate: 400 mL/hr at 11/22/18 1111, 1,000 mg at 111 sucralfate (CARAFATE) tablet 1 g, 1 g, Per G Tube, AC&HS, Letty Akbar MD, 1 g at 11/22/18 1111 methylPREDNISolone (PF) (SOLU-MEDROL) in jection 20 mg, 20 mg, IntraVENous,Q8H, Krystian Monae MD, 20 mg at 11/22/18 064 5 albuterol-ipratropium (DUO-NEB) 2.5 MG-0.5 MG/3 ML, 3 mL, Nebulization, Q6HW ART, Stella Hamilton MD, 3 mL at 11/22/18 0736 LORazepam (ATIVAN) injection 0.5 mg, 0.5 mg, IntraVENous, QHS, Mili Hills DO, 0.5 mg at 11/21/18 2206 vancomycin (VANCOCIN) 1,000 mg in 0.9% sodium chloride 250 mL IVPB, 1,000 mg,IntraVENous, Q12H, Monica Gomez MD, Last Rate: 125 mL/hr at 11/22/18 1216,1,000 mg at 11/22/18 1216 pantoprazole (PROTONIX) 40 mg in sodium chloride 0.9% 10 mL injection, 40 mg,Int raVENous, Q12H, Letty Kaye MD, 40 mg at 11/22/18 0844 metoclopramide HCl (REGL AN) injection 10 mg, 10 mg, IntraVENous, Q8H, Letty Kaye MD, 10 mg at 11/22/18 06 45 piperacillin-tazobactam (ZOSYN) 3.375 g in 0.9% sodium chloride (MBP/ADV) 100mL MBP, 3.375 g, IntraVENous, Q8H, Natasha Dudley MD, Last Rate: 25 mL/hr at11/22/18 1111, 3.375 g at 11/22/18 1111 valproate (DEPACON) 250 mg in 0.9% sodium chloride 50 mL IVPB, 250 mg,IntraVENous, Q12H, Letty Kaye MD, Last Rate: 50 mL/hr at 11/22/18 0845,250 mg at 11/22/18 0845 0.9% sodium chloride 1,000 mL with mvi, adult no.4 with vit K 10 mL, [id number] mg, folic acid 1 mg infusion, , IntraVENous, Q24H, Letty Kaye MD, LastRate: 100 mL/hr at 11/21/18 1713 albuterol-iprat ropium (DUO-NEB) 2.5 MG-0.5 MG/3 ML, 3 mL, Nebulization, Q4HPRN, Letty Kaye M D, 3 mL at 11/19/18 0602 cinacalcet (SENSIPAR) tablet 60 mg, 60 mg, Oral, DA PIERRE, Letty Kaye MD,60 mg at 11/22/18 0843 budesonide (PULMICORT) 500 mcg/2 ml nebulizer suspension, 500 mcg,Nebulization, BID RT, Artemio Kaye MD, 500 mcg at 11/22/18 0736DataVisit VitalsBP 144/73 (BP 1 Location: Left arm , BP Patient Position: At rest;Lying rightside)Pulse 65Temp 97.5 F (36.4 C) Resp 20Ht 5' 2" (1.575 m)Wt 58.4 kg (128 lb 11.2 oz)SpO2 91%BMI 23.54 kg/m Intake an d Output:Date 11/21/18699 - 11/22/1865811/22/18699 - 11/23/18 0659Shift 699- 1858 6337-2711 24 Hour Total 7619-6335 8160-5698 24 Hour TotalINTAKEI.V.(mL/kg/ hr) 170(0.2) 170(0.1) I.V. 20 20 Volume (acetaminophen (OFIRMEV) infusion 1,000 mg) 100 100 Volume (valproate (DEPACON) 250 mg in 0.9% sodium chloride 50 mL IVPB) 5 0 50NG/GT 100 100 Water Flush Volume (mL) (PEG/Gastrostomy Tube 11/17/18) 50 50 Medication Volume (PEG/Gastrostomy Tube 11/17/18) 50 50Shift Total(mL/kg) 270(4 .3) 270(4.6)OUTPUTUrine(mL/kg/hr) 675(0.9) 650(0.9) 1325(0.9) Urine Output (mL) (U rinary Catheter 11/19/18 Lozano) 675 650 1325Emesis/NG output 20 20 Output (ml) (PEG/Gastrostomy Tube 11/17/18) 20 20Shift Total(mL/kg) 695(11.2) 650(11.1) 1345(23 )[facility] -430 -475 -9093Weight (kg) 62.3 58.4 58.4 58.4 58.4 58.4Pulse OX:SpO2 Reading s from Last 6 Encounters:11/22/18 91%09/26/15 96%@LASTSAO2(6)@PHYSICAL EXAM:General: Lethargic,responding.Head: Normocephalic, without obvious abnormality, atraumatic. Eyes: Conjunctivae clear, anicteric sclerae. Pupils are equalNose: Nares n ormal. No drainage or sinus tenderness.Throat: Lips, mucosa, and tongue normal. No ThrushNeck: Supple, symmetrical, no adenopathy, thyroid: no n tender no carotid bruit and no JVD.Back: Symmetric, No CVA tenderness.Lungs: Scattered rhonchi,Chest wall: No tenderness or deformity. No Accessory muscle use.He art: Regular rate and rhythm, no murmur, rub or gallop.Abdomen: Soft, non-tende r. Not distended. Bowel sounds normal. No massesExtremities: Extremities normal, a traumatic, No cyanosis. No edema. No clubbingSkin: Texture, turgor normal . No rashes or lesions. Not JaundicedLymph nodes: Cervical, supraclavicular normal. Psych: Good insight. Not depressed. Not anxious or agitated.Neurologic: EOMs int act. No facial asymmetry. No aphasia or slurred speech.Most recent labs:Recent L abs 11/22/1903WBC 14.1* 17.1* 21.5*HGB 12. 5* 11.9* 13.5*HCT 36.7* 34.9* 41.0*PLT 168 171 167Recent Labs 08844 11/21/1903NA -- 141 139 139K -- 4.1 3.9 4.2CL -- 104 105 102CO2 28* 30 30 32GLU -- 87 104 138*BUN -- 16 17 18CREA -- 0.33* 0.32* 0.41*C A -- 9.4 9.1 9.3MG -- 1.6 1.7 1.7ALB -- 2.4* 2.2* 2.3*TBILI -- 0.9 0.9 0.8SGOT -- 16 21 19ALT -- 25 26 25Recent Labs PH 7.45PCO2 38PO2 73*HCO3 26 ABG:Recent Labs PH 7.45PCO2 38PO2 73*HCO3 26Cultures:No results foun d for: SDESLab ResultsComponent Value Date/Time Culture result: NO GROWTH 2 DA YS 11/20/2018 09:00 AM Culture result: NO GROWTH 5 DAYS 11/07/2018 08:10 PM Cultur e result: NO GROWTH 5 DAYS 11/07/2018 08:00 PMImages:Cta Chest W Or W Wo ContResult Date: 11/08/2018Examination: CTA Chest ? PE angiography History: Hypoxia; rule out p neumoniaversus pulmonary embolism Priors: None Technique: Low-dose, multiplanar,h elical CTA chest was performed with bolus IV injection from lung apices tobases. 3D- reformatted images were obtained and reviewed on a dedicated viewingworkstation and di rectly supervised. Contrast: A total of 71 mL of Isovue-370was administered intravenou sly for this procedure. Findings: No evidence ofpulmonary embolism is seen. T here is decreased size of the right hemithorax fromchronic scarring and retr action with mediastinal shift left to right.Additional area of consolidation i s seen in the right lower lobe and suggestssuperimposed pneumonia with subs egmental atelectasis. Subsegmental atelectasisis also noted in the left jorge g base, with pleural parenchymal scarring. Lowlung volumes are seen. No pneumothora x seen. Aorta normal in caliber withoutaneurysm or dissection. Mediastin um no adenopathy. Mediastinal shift is seen inthe left and right as a result of chr onic changes in the right hemithorax.Heart shows no chamber enlargement or pericard ial effusion. No acute fracturesseen in the bony thorax, sternum, manubrium and rib cage. Multiple compressiondeformities are seen in the mid and lower thoracic spine , with superimposedspondyloarthropathy. Cannot exclude acute fracture.Impression : No evidence of pulmonary embolism Right lower lobe pneumoniasuggested. Incidenta l scarring and retraction in the right hemithorax fromremote/chronic inflammato ry disease and/or trauma. Bibasilar subsegmentalatelectasis. Report Electron ically Signed By: Pawel Zafar M.D. -11/08/2018 12:40 AMXr Chest PortResult D ate: 11/07/2018XR CHEST PORT CLINICAL INDICATION PROVIDED:. "sob." COMPARISON: . 09/26/2015.FINDINGS:. The pericardial/cardiac silhouette is enlarg ed in the transversedimension. There is no pulmonary vascular congestion or interst itial edema.Linear density in the left lung base and faint densities in the right mi d tolower lung likely represent atelectasis. There is no lobar consolidation oreffusi on. There is no pneumothorax.IMPRESSION:. Bilateral lower lung atelectasis. No donna dence of consolidation oreffusion.Assessment/PlanActive Problem s: COPD (chronic obstructive pulmonary disease) (HCC) (11/08/2018) Acute respir atory distress (11/08/2018) Pneumonia (11/08/2018) COPD exacerbation (HCC) () Acute resp failure combined, pneumonia acute copd exacerbation pe rul ed out.PLAN,Monitoring,bipap prn for resp distressIvabx,Iv steroids taperedbipap p rn and at night.NebS/p peg,feeding started.D/w nursing staff.Pantera Munson 2018The billing code submitted in association with this evaluation also includes thetime to review patient's prior records, communicate with the physician team,obtain corroborating data, and discuss the risk and benefits of the proposedman agement plan with the patient and their family >30 minutes. Name Value Range Interpretation Code Description Data Harriett rce(s) Supporting Document(s ) ID Date Data Source [id number] 11/22/2018 01:08:44 PM EDT [facility] - [facility] Tap water enema given. Pt tolerated well . Name Value Range Interpretation Code Description Data Harriett rce(s) Supporting Document(s ) ID Date Data Source [id number] 11/22/2018 12:37:13 PM EDT [facility] - [facility] [place] Name Value Range Interpretation Description Data Sup porting Code Source(s) Document(s ) pH of Arterial 7.45 7.35-7.4 [facility] - blood 5 [facility] Hospital Carbon dioxide 38 mmHg 32-48 [facility] - [Partial Community pressure] in Hospital Arterial blood Oxygen 73 mmHg 83-108 Below low normal [facility] - [Partial Community pressure] in Hospital Arterial blood Carbon 28 19-24 Above high normal [facility] - dioxide, total mmol/L Community [Moles/volume] Hospital in Arterial blood Bicarbonate 26 21-28 [facility] - [Moles/volume] mmol/L [facility] in Arterial Hospital blood Oxygen 97 % 94-98 [facility] - saturation in [facility] Blood Hospital Base excess in 2.4 0-3 [facility] - Arterial blood mmol/L Community by calculation [facility] Service comment [address] [facility] ID Date Data Source [id number] 11/22/2018 10:53:14 AM EDT [facility] Progress NotePatient: Evelio Carlin SSN: [id number] of : 1950 Age: 68 y.o. Sex: maleAdmit Date: Days Post-OpProcedure: Procedure(s):GASTROSTOMY TUBE PLACEMENT and cut toe and finger nailsSubjective:Patient with MR, mental maria issues, non verbalAlert and awakeObjective:Visit VitalsBP 139/86 (BP 1 Location: Right arm, BP Patient Position: At rest;Supine)Pulse 64Temp 97.9 F (36. 6 C)Resp 18Ht 5' 2" (1.575 m)Wt 58.4 kg (128 lb 11.2 oz)SpO2 94%BMI 23.54 kg/m Output from g tube 20 ml yellow green drainage no coffee groundsTemp (24hrs), Av.8 F (36.6 C), Min:96.5 F (35.8 C), Max:98.7 F (37.1 C)Physical Exam:LUNG: clear to aus cultation bilaterally, HEART: regular rate and rhythm, S1, Y8zvttes, no murmur, cli ck, rub or gallop, ABDOMEN:non distended soft, non-tender.Bowel sounds normal. No masses, no organomegaly, Serosanguinous drainage fromwound dressing reapplied, G tube anchored and intact EXTREMITIES: extremitiesnormal, atraumatic, no cyanos is or edemaData Review: reviewed Nursing documentation and I & OLab Data Reviewed :CBC w/Diff Recent Labs 11/22/1903WBC 14.1* 17.1* 21.5*HGB 12.5* 11.9* 13.5*HCT 36.7* 34.9* 41.0*MCV 95.3* 95.6* 99.3*PLT 168 171 16 7GRANS 90* 94* 94*LYMPH 7* 4* 4*EOS 0 0 0Chemistry Recent Labs 11/21/1903GLU 87 104 138*NA 141 139 139K 4.1 3.9 4.2CL 104 105 102CO2 30 30 32BUN 16 17 18CREA 0.33* 0.32* 0.41* Recent Labs 11/22/1903 0 CA 9.4 9.1 9.3ALB 2.4* 2.2* 2.3*TBILI 0.9 0.9 0.8AP 46 42* 41*SGOT 1 6 21 19ALT 25 26 25Coagulation No results for input(s): PTP, INR, APTT in the last 72 hours.No lab exists for component: INREXTAssessment:Hospital Problems Nilo uribe Reviewed Codes Class Noted POA COPD (chronic obstructive pulmonary disease) (HCC) ICD-10-CM: J44.9ICD-9-CM: 496 11/08/2018 Unknown Acute respiratory dist ress ICD-10-CM: R06.03ICD-9-CM: 518.82 11/08/2018 Unknown Pneumonia ICD-10-CM: J 18.9ICD-9-CM: 486 11/08/2018 Unknown COPD exacerbation (HCC) ICD-10-CM: J44.1ICD-9 -CM: 491.21 11/08/2018 UnknownPlan/Recommendations/Medical Deci elio Making:WBC trending downward, abdominal xray non dilated loops of bowel, stool i nrectumOutput from g tube minimalRestart feeding at 25 ml /hour ,monitor residual out puts and dressing canchange dressing prnOrder new binderTWE x 1Signed By: Carie Kaye MD November 22, 2018 Name Value Range Interpretation Code Description Data [facility] rce(s) Supporting Document(s ) ID Date Data Source [id number] 11/22/2018 08:24:50 AM EDT [facility] EXAM: XR ABD (KUB)INDICATION: ileusCOMPA RISON: None.FINDINGS: A supine radiograph of the abdomen shows a normal bowel gas pat tern.No soft tissue masses or pathologic calcifications are identified. The bones andsoft tissues are within normal limits. There is moderate fecal materialoverlyin g the pelvis. There are skin kalpana along the midline.IMPRESSION: No dilated loops of bowel are identified to suggest obstruction.Signing date/time: 11/22/2018 8:24 AMSigned by: ROSALEE DOE Name Value Range Interpretation Code Description Data [facility] Supporting Document(s ) ID Date Data Source [id number] 11/22/2018 08:23:46 AM EDT [facility] History: PNEUMONIATechnique: Portable ch est x-ray 11/22/2018 8:03 AMComparison: 11/21/2018. FINDINGS: The exam is rotated. There is a small left pleural effusion withprobable infiltrate or atelectasis. There is improved aeration of the rightlungsince the prior.Evaluation of t he cardiac silhouette is limited by projection.The visualized osseous struct ures appear unremarkable.IMPRESSION: There is a small left pleural effusion with proba ble infiltrate oratelectasis. There is improved aeration of the right lung sinc e the prior.Signing date/time: 11/22/2018 8:23 AMSigned by: ROSALEE DOE Name Value Range Interpretation Code Description Data [facility] rce(s) Supporting Document(s ) ID Date Data Source [id number] 11/22/2018 07:45:27 AM EDT [facility] - [facility] Bedside and Verbal shift change report carol pham to Nehemias RN (oncoming nurse) byKim Keene RN (offgoing nurse). R eport included the following information SBAR, Kardex,Intake/Output, MAR and Rece nt Results. Name Value Range Interpretation Code Description Data Harriett rce(s) Supporting Document(s ) ID Date Data Source [id number] 11/22/2018 07:05:07 AM EDT [facility] - [facility] Name Value Range Interpretation Description Data Sup porting Code Source(s) Document(s ) Sodium 141 136-145 [facility] - [Moles/volume] in mmol/L [facility] Serum or Plasma Hospital Potassium 4.1 3.5-5.1 [facility] - [Moles/volume] in mmol/L [facility] Serum or Plasma Hospital Chloride 104 98-107 [facility] - [Moles/volume] in mmol/L [facility] Serum or Plasma Hospital Carbon dioxide, 30 21-32 [facility] - total mmol/L Community [Moles/volume] in Hospital Serum or Plasma Anion gap in Serum 11 10-20 [facility] - or Plasma mmol/L [facility] Glucose 87 74-106 [facility] - [Mass/volume] in mg/dL [facility] Serum or Plasma Hospital Urea nitrogen 16 7-18 [facility] - [Mass/volume] in mg/dL [facility] Serum or Plasma [facility] Creatinine 0.33 0.70-1. Below low normal [facility] - [Mass/volume] in mg/dL 30 [facility] Serum or Plasma Hospital Glomerular >60 [facility] - filtration Community rate/1.73 sq M Hospital predicted among blacks [Volume Rate/Area] in Serum or Plasma by Creatinine-based formula (MDRD) Glomerular >60 [facility] - filtration Community rate/1.73 sq M Hospital predicted among non-blacks [Volume Rate/Area] in Serum or Plasma by Creatinine-based formula (MDRD) Calcium 9.4 8.5-10. [facility] - [Mass/volume] in mg/dL 1 [facility] Serum or Plasma Hospital Bilirubin.total 0.9 0.2-1.0 [facility] - [Mass/volume] in mg/dL [facility] Serum or Plasma Hospital Alanine 25 U/L 13-61 [facility] - aminotransferase Community [Enzymatic Hospital activity/volume] in Serum or Plasma Aspartate 16 U/L 15-37 [facility] - aminotransferase Community [Enzymatic Hospital activity/volume] in Serum or Plasma by With P-5'-P Alkaline 46 U/L 45-117 [facility] - phosphatase Community [Enzymatic Hospital activity/volume] in Serum or Plasma Protein 5.7 6.4-8.2 Below low normal [facility] - [Mass/volume] in g/dL [facility] Serum or Plasma Hospital Albumin 2.4 3.5-4.7 Below low normal [facility] - [Mass/volume] in g/dL [facility] Serum or Plasma by [facility] Bromocresol purple (BCP) dye binding method Globulin 3.3 1.7-4.7 [facility] - [Mass/volume] in g/dL [facility] Serum by [facility] calculation Albumin/Globulin 0.8 0.7-2.8 [facility] - [Mass Ratio] in [facility] Serum or Plasma Hospital ID Date Data Source [id number] 11/22/2018 07:05:07 AM EDT [facility] Name Value Range Interpretation Description Data Sup porting Code Source(s) Document(s ) Magnesium 1.6 mg/dL 1.6-2.6 [facility] - [Mass/volume] Community in Serum or [facility] Plasma ID Date Data Source [id number] 11/22/2018 06:55:36 AM EDT [facility] [place] Name Value Range Interpretation Description Data Sup porting Code Source(s) Document(s ) Leukocytes 14.1 4.8-10.6 Above high normal [facility] - [#/volume] in K/uL [facility] Blood by Hospital Automated count Erythrocytes 3.85 4.70-6.0 Below low normal [facility] - [#/volume] in M/uL 0 [facility] Blood by Hospital Automated count Hemoglobin 12.5 14.0-18. Below low normal [facility] - [Mass/volume] in g/dL 0 [facility] Blood [facility] Hematocrit 36.7 % 42.0-52. Below low normal [facility] - [Volume 0 Community Fraction] of Hospital Blood by Automated count Erythrocyte mean 95.3 FL 81.0-94. Above high normal [facility] - corpuscular 0 [facility] volume [Entitic Hospital volume] by Automated count Erythrocyte mean 32.5 PG 27.0-35. [facility] - corpuscular 0 [facility] hemoglobin Hospital [Entitic mass] by Automated count Erythrocyte mean 34.1 30.7-37. [facility] - corpuscular g/dL 3 [facility] hemoglobin Hospital concentration [Mass/volume] by Automated count Erythrocyte 14.6 % 11.5-14. Above high normal [facility] - distribution 0 Community width [Ratio] by Hospital Automated count Platelets 168 K/uL 130-400 [facility] - [#/volume] in [facility] Blood by Hospital Automated count Platelet mean 9.0 FL 9.2-11.8 Below low normal [facility] - volume [Entitic Community volume] in Blood Hospital by Automated count Segmented 90 % 48.0-72. Above high normal [facility] - neutrophils/100 0 Community leukocytes in Hospital Blood Lymphocytes/100 7 % 18.0-40. Below low normal [facility] - leukocytes in 0 [facility] Blood Hospital Monocytes/100 3 % 2.0-12.0 [facility] - leukocytes in [facility] Eosinophils/100 0 % 0.0-7.0 [facility] - leukocytes in [facility] Blood [facility] Basophils/100 0 % 0.0-3.0 [facility] - leukocytes in [facility] Blood [facility] Segmented 12.7 1.5-6.6 Above high normal [facility] - neutrophils K/UL Community [#/volume] in Hospital Blood Lymphocytes 1.0 K/UL 1.5-3.5 Below low normal [facility] - [#/volume] in [facility] Monocytes 0.4 K/UL 0.0-1.0 [facility] - [#/volume] in [facility] Eosinophils 0.0 K/UL 0.0-0.7 [facility] - [#/volume] in [facility] Basophils 0.0 K/UL 0.0-0.1 [facility] - [#/volume] in [facility] Differential [facility] - cell count [facility] Immature 0 % 0.0-2.0 [facility] - granulocytes/100 Community leukocytes in Hospital Blood by Automated count ID Date Data Source [id number] 11/21/2018 07:32:02 PM EDT [facility] - [facility] Bedside and Verbal shift change report carol pham to Kim Keene RN (oncomingnurse) by Roshin Alias RN (offgoing nurse). Report included the followinginformation SBAR, Kardex, ED Summary, Procedure Summary, I ntake/Output, MAR,Recent Results and Med Rec Status. Name Value Range Interpretation Code Description Data Harriett rce(s) Supporting Document(s ) ID Date Data Source [id number] 11/21/2018 05:18:34 PM EDT [facility] 2nd tap water enema given .pt tolerated well .will cont monitor Name Value Range Interpretation Code Description Data Harriett rce(s) Supporting Document(s ) ID Date Data Source [id number] 11/21/2018 03:07:11 PM EDT [facility] Problem: Pressure Injury - Risk ofGoal: *Prevention of pressure injuryDescriptionDocument Butch Scale a nd appropriate interventions in the flowsheet.Outcome: Progressing Towards G oalNote:Pressure Injury Interventions:Sensory Interventions: Assess changes in LOC, As sess need for specialty bed,Avoid rigorous massage over bony prominences, Discuss P T/OT consult withprovider, Float heels, Keep linens dry and wrinkle-free, Maintain/en hanceactivity level, Minimize linen layers, Monitor skin under medical devices, Padb etween skin to skin, Pressure redistribution bed/mattress (bed type), [id number] si de-lying position, Turn and reposition approx. every two hours(pillows and wedg es if needed)Moisture Interventions: Absorbent underpads, Assess need for spe cialty bed,Apply protective barrier, creams and emollients, Check for incontinence Q 2 hoursand as needed, Internal/External urinary devices, Limit adult briefs, Haydee ntainskin hydration (lotion/cream), Minimize layers, Moisture barrier, Offertoileting Q_hrActivity Interventions: Pressure redistribution bed/mattress(bed type), A ssessneed for specialty bedMobility Interventions: Assess need for specialty bed, Float heels, HOB 30degrees or less, Pressure redistribution bed/mattress (be d type), Turn andreposition approx. every two hours(pillow and wedges)Nutrition Interv entions: Document food/fluid/supplement intake, Discussnutritional consult with provider, Offer support with meals,snacks and hydrationFriction and Shear Intervention s: Apply protective barrier, creams andemollients, Feet elevated on foot res t, Foam dressings/transparent film/skinsealants, HOB 30 degrees or les s, Lift team/patient mobility team, Lift sheet,Minimize layers, Transferring/repo sitioning devicesProblem: Falls - Risk ofGoal: *Absence of FallsDescriptionDocu ment Samra Fall Risk and appropriate interventions in the flowsheet.Outcome: Progressing Towards GoalNote:Fall Risk Interventions:Mobility Interventions: Be d/chair exit alarm, Communicate number of staff neededfor ambulation/transfer, Pat ient to call before getting OOB, OT consult forADLs, PT Consult for mobility concern s, PT Consult for assist device competence,Strengthening exercises (ROM- active/passive), Utilize walker, cane, or otherassistive deviceMentation Intervent ions: Adequate sleep, hydration, pain control, Bed/chair exitalarm, Door open when patient unattended, Evaluate medications/considerconsulting pharmacy, Toileting rounds, Update white board, Room close to nurse'sstation, Reorient patien t, More frequent rounding, Increase mobility, Familiarobjects from homeMedication Inte rventions: Bed/chair exit alarm, Evaluate medications/considerconsulting pharmacy, Patient to call before getting OOB, Teach patient to ariseslowlyElimination Interv entions: Bed/chair exit alarm, Call light in reach, Patient tocall for help with toil eting needs, Stay With Me (per policy), Toiletpaper/wipes in reach, Toileting sc hedule/hourly rounds Name Value Range Interpretation Code Description Data [facility] rce(s) Supporting Document(s ) ID Date Data Source [id number] 11/21/2018 12:28:40 PM EDT [facility] ID Progress Note11/21/2018Subjective:Pt tr ansferred back to the floor, breahting is betterX-ray shows ileus, he is S/p surgi inez peg placement 11/17/18, + coffee ground emesisWbc downtrending to 17K from 25KVa nco trough 9.4Patient with MR,schizophrenia,non verbal.Unable to pr ovide any history.Objective:Vitals:Patient Vitals for the past 24 hrs: BP Temp Puls e Resp SpO2 Umdgjb43/09/19 1000 127/62 - 77 17 95 % -11/21/18 0900 120/61 - 68 13 97 % -11/21/18 0805 - - - - 96 % -11/21/18 0800 131/75 - 63 26 95 % -11/21/18 0729 - 97. 7 F (36.5 C) - - - -11/21/18 0700 116/67 - 72 26 95 % -11/21/18 0600 119/63 - 71 24 100 % -11/21/18 0500 141/79 - 78 23 97 % -11/21/18 0400 155/78 98.2 F (36.8 C) 90 24 94 % -11/21/18 0300 143/68 - 87 20 94 % 62.3 kg (137 lb 5.6 oz)11/21/18 0200 138 /64 - 90 22 96 % -11/21/18 0100 129/69 - 92 19 95 % -11/21/18 0000 (!) 116/91 98.6 F (37 C) 89 17 95 % -11/20/18 2300 110/53 - 89 23 94 % -11/20/18 2214 - - - - 97 % - 11/20/18 2200 131/77 - 86 12 94 % -11/20/18 2100 119/62 - 86 14 93 % -11/20/18 2000 128/66 98.6 F (37 C) 78 19 95 % -11/20/18 1900 130/62 - 82 18 96 % -11/20/18 1800 129/69 - 85 19 98 % -11/20/18 1700 134/70 - 85 20 91 % -11/20/18 1600 119/65 98.2 F (36.8 C) 94 21 91 % -11/20/18 1500 132/72 - 95 15 100 % -11/20/18 1400 (!) 156/95 - 86 17 99 % -11/20/18 1300 (!) 113/15 - 70 25 99 % -11/20/18 1200 132/62 97.4 F (36.3 C) 67 21 100 % -Tmax: Temp (24hrs), Av.1 F (36.7 C), Min:97.4 F (36.3 C), Max:98.6 F(37 C)Physical Exam:General: Awake non verbal cooperat britni, no distressEyes: Conjunctivae/corneas clear. PERRLNeck: Supple, symmetrical, t rachea midline, no adenopathyLungs: Bilateral breath sounds with basal crack les..Heart: Regular rate and rhythm, S1, S2 normalAbdomen: Soft, non-tender. Bowel sounds normal. Peg+site cleanBack: No CVA tenderness.Extremities: No cyanosis or e yana.Pulses: 2+ and symmetric all extremities.Skin: Skin color, texture, t urgor normal. No rashes or lesionsLymph nodes: Cervical, supraclavicular, and ax illary nodes normal.Current Facility-Administered MedicationsMedicat ion Dose Route Frequency sucralfate (CARAFATE) tablet 1 g 1 g Per G Tube AC &HS acetaminophen (OFIRMEV) infusion 1,000 mg 1,000 mg IntraVENous Q6H methylPRED NISolone (PF) (SOLU-MEDROL) injection 20 mg 20 mg IntraVENous Q8H albuterol-ipratro pium (DUO-NEB) 2.5 MG-0.5 MG/3 ML 3 mL Nebulization Q6HWA RT LORazepam (ATIVAN ) injection 0.5 mg 0.5 mg IntraVENous QHS vancomycin (VANCOCIN) 1,000 mg in 0.9% s odium chloride 250 mL IVPB 1,000 mgIntraVENous Q12H pantoprazole (PROTON IX) 40 mg in sodium chloride 0.9% 10 mL injection 40 mgIntraVENous Q12H metocl opramide HCl (REGLAN) injection 10 mg 10 mg IntraVENous Q8H piperacillin-tazobactam (ZOSYN) 3.375 g in 0.9% sodium chloride (MBP/ADV) 100mL MBP 3.375 g IntraVENous Q8H valproate (DEPACON) 250 mg in 0.9% sodium chloride 50 mL IVPB 250 mgIntraV ENous Q12H 0.9% sodium chloride 1,000 mL with mvi, adult no.4 with vit K 10 mL, t [id number] mg, folic acid 1 mg infusion IntraVENous Q24H albuterol-ipratropium (DUO-NEB) 2.5 MG-0.5 MG/3 ML 3 mL Nebulization Q4H PRN cinacalcet (SENSIP AR) tablet 60 mg 60 mg Oral DAILY budesonide (PULMICORT) 500 mcg/2 ml nebu lizer suspension 500 mcg NebulizationBID RTLabs:Recent Labs 18927 400 605WBC 17.1* 21.5* 20.6* 23.9* 25.4*HGB 11.9* 13.5* 12.9* 15.2 15.3PLT 171 167 149 175 224BUN 17 -- 18 5* 17CREA 0.32* -- 0.41* 0.52* 0.47*SGOT 21 -- 19 31 33AP 42* -- 41* 60 56TBILI 0.9 -- 0.8 1.0 1.3*Cultures:Lab ResultsComponent Value Date/Time Culture result: NO GROWT H 5 DAYS 11/07/2018 08:10 PM Culture result: NO GROWTH 5 DAYS 11/07/2018 08:00 PMRadi ology:Xr Chest PortResult Date: 11/21/2018AP portable film of the chest clinical vi cation pneumonia Study is compared toprevious examination of November 19, 2018. There nelson s been partial clearing ofstreaky changes seen at the right base. There has been i nterval development ofsome haziness at the left base as well as elevation of the le ft leaf of thediaphragm. Heart size is difficult to evaluate.IMPRESSION: 1. Par tial clearing of streaks at right base. 2. Haziness at leftbase which may represent infiltrateXr Abd Port 1 VResult Date: 11/21/2018Abdomen 2 views clinical indicat ion ileus Study is compared to previousexamination of November 20, 2018. T here has been an interval decrease in boweldistention. Increased stool is note d in the rectal region. Skin clips are againnoted.IMPRESSION: 1. Interval decre ase in bowel distention. 2. Increased stool inrectal regionXr Abd Port 1 VResult Da te: 11/20/2018KUB one view(s) History: Ileus. Comparison: Yesterday. There is diffuse ileusof the small and large bowel which has increased involving the small bowel. Air and fecal material is noted in the rectosigmoid colon. The cecum appears to bein the right hemiabdomen but is otherwise unchanged. There is no evidence ofobstru ction, radiopaque gallstones, or kidney stones. The previously noted tubeoverlyi ng the abdomen is no longer seen.IMPRESSION: Increase of small bowel ileus.Assessment : Sepsis POA Aspiration pneumonia Dysphagia s/p peg placement COPD S/p PEG placement IleusPlan:1.Continue IV zosyn.2. Continue IV vancomycinMahlet Pantera La AM Name Value Range Interpretation Code Description Data [facility]riett rce(s) Supporting Document(s ) ID Date Data Source [id number] 11/21/2018 09:55:57 AM EDT [facility] TRANSFER - OUT REPORT:Verbal report give n to NANCY Gardner(name) on Evelio Carlin being transferredto T3, Room 344(unit) f or routine progression of careReport consisted of patient's Situation, Backgr ound, Assessment andRecommendations(SBAR).Information fro m the following report(s) SBAR, Kardex, ED Summary, ProcedureSummary, Intake/Output , MAR, Recent Results, Cardiac Rhythm NSR and AlarmParameters was reviewed with the r eceitai nurse.Lines:Peripheral IV 11/19/18 Left Antecubital (Active)Site Assessment Clean, dry, & intact 11/21/2018 8:00 AMPhlebitis Assessment 0 11/21/2018 8:00 AMInfiltration Assessment 0 11/21/2018 8:00 AMDressing Status Clean, dry, & intact 8:00 AMDressing Type Transparent;Tape;Hilda 11/21/2018 8:00 AM Hub Color/Line Status Blue;Patent;Flushed;Infusing 11/21/2018 8 :00 AMAction Taken Open ports on tubing capped 11/21/2018 8:00 AMAlcohol Cap Used Yes 11/21/2018 8:00 AMPeripheral IV 11/19/18 Posterior;Right Hand (Active)Site Assess ment Clean, dry, & intact 11/21/2018 8:00 AMPhlebitis Assessment 0 11/21/2018 8:00 AMInfiltration Assessment 0 11/21/2018 8:00 AMDressing Status Clean, dry, & intact 8:00 AMDressing Type Transparent;Tape 11/21/2018 8:00 AMHub Co nirali/Line Status [place];Patent;Flushed;Infusing 11/21/2018 8:00 AMAction Taken Open ports on tubing capped 11/21/2018 8:00 AMAlcohol Cap Used Yes 11/21/2018 8:00 AMPeripheral IV 11/19/18 Posterior;Right Hand (Active)Site Assessment Clean, dry, & in tact 11/21/2018 8:00 AMPhlebitis Assessment 0 11/21/2018 8:00 AMInfiltration Assessment 0 11/21/2018 8:00 AMDressing Status Clean, dry, & intact 11/21/2018 8:00 AMDressing Type Transparent;Tape;Hilda 11/21/2018 8:00 AMHub Color/Line Status [place];Patent;Flus hed;Infusing 11/21/2018 8:00 AMAction Taken Open ports on tubing capped 11/21/2018 8: 00 AMAlcohol Cap Used Yes 11/21/2018 8:00 AMOpportunity for questions and clarific ation was provided.Patient transported with: MonitorO2 @ 3 litersPatient-specific med ications from PharmacyRegistered Nurse Name Value Range Interpretation Code Description Data [facility](s) Supporting Document(s ) ID Date Data Source [id number] 11/21/2018 09:55:02 AM EDT [facility] As per Dr. Mansfield and Dr. Kaye okay to give medication via G-tube., and thenplace G tube back on low intermittent suction.Dr Gualberto Kaye changed abdominal dressing. G-tube and kalpnaa clean, dry, andintact. Guaze dressing placed and secured with tape by MD, abdominal binderpresent. Will continue t o monitor. Name Value Range Interpretation Code Description Data [facility](s) Supporting Document(s ) ID Date Data Source [id number] 11/21/2018 09:43:47 AM EDT [facility] Tap water enema given as ordered by Dr. Mansfield. Patient tolerated. Name Value Range Interpretation Code Description Data Harriett rce(s) Supporting Document(s ) ID Date Data Source [id number] 11/21/2018 09:34:24 AM EDT [facility] Progress NotePatient: Evelio Carlin SSN: [id number] of : 1950 Age: 68 y.o. Sex: maleAdmit Date: Days Post-OpProcedure: Procedure(s):GASTROSTOMY TUBE PLACEMENT and Trimmed toe and finger nailsSubjective:Patient non verbalAlert awake breathing comfortablyObjective:Visit VitalsBP 120/61 (BP 1 Location: Right ar m, BP Patient Position: At rest)Pulse 68Temp 97.7 F (36.5 C)Resp 13Ht 5' 2" (1.575 m)Wt 62.3 kg (137 lb 5.6 oz)SpO2 97%BMI 25.12 kg/m Temp (24hrs), Av.1 F (36.7 C) , Min:97.4 F (36.3 C), Max:98.6 F (37 C)g tube out put 60 ml over last 24 hoursPhy sical Exam:LUNG: clear to auscultation bilaterally, HEART: regular rate and rhy thm, S1, H5rxbykn, no murmur, click, rub or gallop, ABDOMEN: soft, non-tender. Bowel soundsnormal. No masses, no organomegaly, Dressing dry Wound clean, EXTREMITIES:ex tremities normal, atraumatic, no cyanosis or edemaData Review: reviewed Consultants documentationLab Data Reviewed:CBC w/Diff Recent Labs 0 0 11/19/1905WBC 17.1* 21.5* 20.6* < > 25.4*HGB 11.9* 13.5* 12.9* < > 15.3HCT 34.9* 41.0* 39.0* < > 43.5MCV 95.6* 99.3* 98.0* < > 95.4*PLT 171 167 149 < > 224GRANS 94* 94* 92* -- 87*LYMPH 4* 4* 4* -- 10*EOS 0 0 -- -- 0 < > = values in this interval not displayed.Chemistry Recent Labs 99554 400 3GLU 104 138* 61*NA 139 139 139K 3.9 4.2 4.4CL 105 102 98CO2 30 32 13*BUN 17 18 5*CREA 0.32* 0.41* 0.52* Recent Labs 0 11/20/18 0400 3CA 9.1 9.3 7.1*ALB 2.2* 2.3* 1.4*TBILI 0.9 0.8 1.0AP 42* 41* 60SGOT 2 1 19 31ALT 26 25 38Coagulation No results for input(s): PTP, INR, APTT in the last 72 hours.No lab exists for component: INREXTAssessment:Hospital Problems Neve r Reviewed Codes Class Noted POA COPD (chronic obstructive pulmonary disease) (HCC) ICD-10-CM: J44.9ICD-9-CM: 496 11/08/2018 Unknown Acute respiratory dist ress ICD-10-CM: R06.03ICD-9-CM: 518.82 11/08/2018 Unknown Pneumonia ICD-10-CM: J 18.9ICD-9-CM: 486 11/08/2018 Unknown COPD exacerbation (HCC) ICD-10-CM: J44.1ICD-9 -CM: 491.21 11/08/2018 UnknownPlan/Recommendations/Medical Deci elio Making:Concerned about more sanguinous drainage from G tubeContinue intermitten t suctionRepeat portable abdominal xray in [facility] with Dr Sandoval ble restart feeding in AM if continues to stabilizeSigned By: Letty Kaye MD A ugust 2018 Name Value Range Interpretation Code Description Data Harriett rce(s) Supporting Document(s ) ID Date Data Source [id number] 11/21/2018 09:10:18 AM EDT [facility] Abdomen 2 views clinical indication ileu sStudy is compared to previous examination of November 20, 2018. There has been aninterva l decrease in bowel distention. Increased stool is noted in the rectalregion. Skin clips are again noted.IMPRESSION:1. Interval decrease in bowel distention.2. Increase d stool in rectal regionSigning date/time: 11/21/2018 9:10 AMSigned by: EAMON SÁNCHEZ Name Value Range Interpretation Code Description Data [facility](s) Supporting Document(s ) ID Date Data Source [id number] 11/21/2018 09:07:44 AM EDT [facility] AP portable film of the chest clinical i ndication pneumoniaStudy is compared to previous examination of November 19, 2018. There has beenpartial clearing of streaky changes seen at the right base. There nelson s beeninterval development of some haziness at the left base as well as elevation of the left leaf of the diaphragm. Heart size is difficult to evaluate.IMPRESSION:1. Part ial clearing of streaks at right base.2. Haziness at left base which may represen t infiltrateSigning date/time: 11/21/2018 9:07 AMSigned by: ROSEANNE SÁNCHEZ Name Value Range Interpretation Code Description Data [facility](s) Supporting Document(s ) ID Date Data Source [id number] 11/21/2018 08:24:42 AM EDT [facility] Progress NotePatient: Evelio Carlin SSN: [id number] of : 1950 Age: 68 y.o. Sex: maleAdmit Date: 11/07/2018 LOS: 13 daysSubjective:Non-verbal.PEG output ove r the last 24 hours has slowed to 60 cc.Objective:Vitals: 11/21/18 0600 11/21 0700 11/21/18 0729 11/21/18 0805BP: 119/63 116/67Pulse: 71 72Resp: 24 26Temp : 97.7 F (36.5 C)SpO2: 100% 95% 96%Weight:Height:Intake and Output:Curre nt Shift: No intake/output data recorded.Last three shifts: 11/19 1901 - 11/21 0700In: 4028.3 [I.V.:4028.3]Out: 2310 [Urine:900]PEG output - 60 cc/24 hoursPhysical Exam:Gen non-verbal male, appears comfortableAbd soft, mildly distended, no obvious tende rness. G-tube in place with tapeddressing covering; small amounts of brown fluid i n tubingLab/Data Review:CMP:Lab ResultsComponent Value Date/Time NA 139 11/21/2018 04:20 AM K 3.9 11/21/2018 04:20 AM CL 105 11/21/2018 04:20 AM CO2 30 2018 04:20 AM AGAP 8 (L) 11/21/2018 04:20 AM GLU 104 11/21/2018 04:20 AM BUN 17 11/21 04:20 AM CREA 0.32 (L) 11/21/2018 04:20 AM GFRAA >60 11/21/2018 04:20 AM GFRNA > 60 11/21/2018 04:20 AM CA 9.1 11/21/2018 04:20 AM MG 1.7 11/21/2018 04:20 AM ALB 2.2 (L) 11/21/2018 04:20 AM TP 5.1 (L) 11/21/2018 04:20 AM GLOB 2.9 11/21/2018 04:20 AM AGRAT 0.8 11/21/2018 04:20 AM SGOT 21 11/21/2018 04:20 AM ALT 26 11/21/2018 04:20 AMCBC:Lab ResultsComponent Value Date/Time WBC 17.1 (H) 11/21/2018 04:20 AM HGB 11.9 (L) 11/21/2018 04:20 AM HCT 34.9 (L) 11/21/2018 04:20 AM PLT 171 11/22/19 19 04:20 AMAXR pendingAssessment:Active Problems: COPD (chronic obstructive pul monary disease) ([facility]) (11/08/2018) Acute respiratory distress (11/08/2018) Pneumo freddy (11/08/2018) COPD exacerbation ([facility]) (11/08/2018)IleusCoffee ground material y day from g-tube suction with concurrent drop inblood counts though no melena or hemodynamic instability - over the last 24hours output has been minimal. Suspect stress gastritis may have beenresponsible.Plan:Monitor CBC.PPI.Tap water enema.Continue g-tube to LIWS for now, may hold for medication administration.R epeat AXR tomorrow. If not worse would attempt to restart tube feeds at a slowr ate and hope to avoid parenteral nutrition.Signed By: Mireya Mccollum November 21, 2018 Name Value Range Interpretation Code Description Data Harriett rce(s) Supporting Document(s ) ID Date Data Source [id number] 11/21/2018 07:43:55 AM EDT [facility] Critical Care Progress [facility]Krystian Monae MD., F.C.C.P.Stella Hamilton MD., F.C.C.P. [address] [place] [address] [place] [address] Name: Evelio JohnsoninDOB: 1950MRN: [id number]: 11/21/2018Subjective:Mr. Carlin is a 68 y.o. year old male who is being see n for AC RESPIRATORYDISTRESS , HIS BREATHING IS BETTER , RR = 22 / MT CHES T XRAY SHOWS NEW INFILTRATE L L L > R LL . WBC = 17 ,100 ABDOMINAL FILM - RE CTUM FULL OF STOOL . 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 6 F (37 C) 89 17 95 % -11/20/18 2300 110/53 - 89 23 94 % -11/20/18 2214 - - - - 97 % -11/20/18 2200 131/77 - 86 12 94 % -11/20/18 2100 119/62 - 86 14 93 % -11/20/18 2000 128/66 98.6 F (37 C) 78 19 95 % -11/20/18 1900 130/62 - 82 18 96 % -11/20/18 1800 129/69 - 85 19 98 % -11/20/18 1700 134/70 - 85 20 91 % -11/20/18 1600 119/65 98.2 F (36.8 C) 94 21 91 % -11/20/18 1500 132/72 - 95 15 100 % -11/20/18 1400 (!) 156/95 - 86 17 99 % -11/20/18 1300 (!) 113/15 - 70 25 99 % -11/20/18 1200 132/62 97.4 F (36.3 C) 67 21 100 % -11/20/18 1100 117/66 - 73 19 98 % -11/20/18 1000 (!) 119/93 - 91 1 8 94 % -11/20/18 0900 141/75 - 89 17 97 % -11/20/18 0820 - - - - 96 % -11/20/18 08 00 158/85 97.4 F (36.3 C) 78 18 98 % -Pulse OX:SpO2 Readings from Last 6 Encounters: 11/21/18 95%09/26/15 96%@LASTSAO2(6)@Intake/Output:Last shift : No intake/output data recorded.Last 3 shifts: 11/19 190 - 11/21 07In: 4028. 3 [I.V.:4028.3]Out: 2310 [Urine:900]Intake/Output Summary (Last 2 4 hours) at 11/21/2018 07Last data filed at 11/21/2018 0600Gross per 24 hourIntake 226 8.33 mlOutput 610 mlNet 1658.33 mlHemodynamics:.@MAP.@CVPVentilator Sett ings:Ventilator VolumesVt Spont (ml): 418 mlVe Observed (l/min): 11.4 l/minMode Ra te Tidal Volume Pressure FiO2 PEEP 50 %Peak airway pressure:Minute ventilation : 11.4 l/minARDS network Guidelines: Lung protective strategy and Pl pressure goal s N /Aless than or equal to 30Physical Exam:ON NASAL CANNULA , SPO2 95 % General: Alert, cooperative, no distress, appears stated age. Head: N ormocephalic, without obvious abnormality, atraumatic. Eyes: Conjuncti vae/corneas clear. PERRL, EOMs intact. Nose: Nares normal. No drainage or sinus tenderness Throat: Lips, mucosa, and tongue normal Nec k: Supple, symmetrical, trachea midline, no adenopathy,thyroid: no enlargem ent/tenderness/nodules, no carotid bruit and no JVD. Lungs: RALES + L L L AND R L L , MILD RHONCHI to auscultationbilaterally. Chest Wall: No tenderness or deformity. Heart: Regular rate and rhythm, S1, S2 normal , no murmur, click,rub or gallop. Abdomen: Soft, non-tender. Bowel sounds normal . No masses, No organomegaly. Extremities: Extremities normal, atraumatic, no cyan osis or edema. Pulses: 4+ bilaterally Skin: Skin col or, texture, turgor normal. No rashes or lesions. Neurologic: CNII-XII intact. No focal motor or sensory deficit.DATA:Current Facility-Administer ed MedicationsMedication Dose Route Frequency albuterol-ipratropium (DUO-NEB) 2.5 MG- 0.5 MG/3 ML 3 mL Nebulization Q6HWA RT LORazepam (ATIVAN) injection 0.5 mg 0.5 mg IntraVENous QHS vancomycin (VANCOCIN) 1,000 mg in 0.9% sodium chloride 250 mL IVPB 1,000 mgIntraVENous Q12H methylPREDNISolone (PF) (SOLU-MEDROL) in jection 40 mg 40 mg IntraVENous Q8H pantoprazole (PROTONIX) 40 mg in sodium chloride 0.9% 10 mL injection 40 mgIntraVENous Q12H metoclopramide HCl ( REGLAN) injection 10 mg 10 mg IntraVENous Q8H acetaminophen (OFIRMEV) infusion 1, 000 mg 1,000 mg IntraVENous Q6H piperacillin-tazobactam (ZOSYN) 3.375 g in 0.9% sodium chloride (MBP/ADV) 100mL MBP 3.375 g IntraVENous Q8H valproate (DEPA CON) 250 mg in 0.9% sodium chloride 50 mL IVPB 250 mgIntraVENous Q12H 0.9% sodiu m chloride 1,000 mL with mvi, adult no.4 with vit K 10 mL, [id number] mg, folic acid 1 mg infusion IntraVENous Q24H albuterol-ipratropium (DUO-NEB) 2.5 MG-0 .5 MG/3 ML 3 mL Nebulization Q4H PRN cinacalcet (SENSIPAR) tablet 60 mg 60 m g Oral DAILY budesonide (PULMICORT) 500 mcg/2 ml nebulizer suspension 500 mcg N ebulizationBID RTTelemetry: [x]Sinus []A-flutter []Paced []A-fib []Multiple P VC'sLabs:Recent Results (from the past 24 hour(s))VANCOMYCIN, TROUGH Collection Ti me: 11/20/18 11:10 AMResult Value Ref Range Vancomycin,trough 9.4 (L) 10 - 20 ug/mLC BC WITH AUTOMATED DIFF Collection Time: 11/20/18 4:16 PMResult Value Ref Range WBC 21.5 (H) 4.8 - 10.6 K/uL RBC 4.13 (L) 4.70 - 6.00 M/uL HGB 13.5 (L) 14.0 - 18. 0 g/dL HCT 41.0 (L) 42.0 - 52.0 % MCV 99.3 (H) 81.0 - 94.0 FL MCH 32.7 27.0 - 35.0 PG MCHC 32.9 30.7 - 37.3 g/dL RDW 15.0 (H) 11.5 - 14.0 % PLATELET 167 130 - 400 K/u L MPV 9.5 9.2 - 11.8 FL NEUTROPHILS 94 (H) 48.0 - 72.0 % LYMPHOCYTES 4 (L) 18.0 - 4 0.0 % MONOCYTES 2 2.0 - 12.0 % EOSINOPHILS 0 0.0 - 7.0 % BASOPHILS 0 0.0 - 3.0 % ABS. NEUTROPHILS 20.3 (H) 1.5 - 6.6 K/UL ABS. LYMPHOCYTES 0.8 (L) 1.5 - 3.5 K/UL ABS. MONOCYTES 0.3 0.0 - 1.0 K/UL ABS. EOSINOPHILS 0.0 0.0 - 0.7 K/UL ABS. BASOPHILS 0.0 0. 0 - 0.1 K/UL DF AUTOMATED IMMATURE GRANULOCYTES 0 0.0 - 2.0 %MAGNESIUM Manuel ection Time: 11/21/18 4:20 AMResult Value Ref Range Magnesium 1.7 1.6 - 2.6 mg/Oscar BC WITH AUTOMATED DIFF Collection Time: 11/21/18 4:20 AMResult Value Ref Range WBC 17.1 (H) 4.8 - 10.6 K/uL RBC 3.65 (L) 4.70 - 6.00 M/uL HGB 11.9 (L) 14.0 - 18. 0 g/dL HCT 34.9 (L) 42.0 - 52.0 % MCV 95.6 (H) 81.0 - 94.0 FL MCH 32.6 27.0 - 35.0 PG MCHC 34.1 30.7 - 37.3 g/dL RDW 14.8 (H) 11.5 - 14.0 % PLATELET 171 130 - 400 K/u L MPV 9.3 9.2 - 11.8 FL NEUTROPHILS 94 (H) 48.0 - 72.0 % LYMPHOCYTES 4 (L) 18.0 - 4 0.0 % MONOCYTES 2 2.0 - 12.0 % EOSINOPHILS 0 0.0 - 7.0 % BASOPHILS 0 0.0 - 3.0 % ABS. NEUTROPHILS 16.0 (H) 1.5 - 6.6 K/UL ABS. LYMPHOCYTES 0.7 (L) 1.5 - 3.5 K/UL ABS. MONOCYTES 0.3 0.0 - 1.0 K/UL ABS. EOSINOPHILS 0.0 0.0 - 0.7 K/UL ABS. BASOPHILS 0.0 0. 0 - 0.1 K/UL DF AUTOMATED IMMATURE GRANULOCYTES 0 0.0 - 2.0 %METABOLIC PANE L, COMPREHENSIVE Collection Time: 11/21/18 4:20 AMResult Value Ref Range Sodium 139 136 - 145 mmol/L Potassium 3.9 3.5 - 5.1 mmol/L Chloride 105 98 - 107 mmol/L CO2 30 21 - 32 mmol/L Anion gap 8 (L) 10 - 20 mmol/L Glucose 104 74 - 106 mg/dL BUN 17 7 - 18 mg/dL Creatinine 0.32 (L) 0.70 - 1.30 mg/dL GFR est AA >60 >60 ml/min/1.73m2 G FR est non-AA >60 >60 ml/min/1.73m2 Calcium 9.1 8.5 - 10.1 mg/dL Bilirubin, total 0. 9 0.2 - 1.0 mg/dL ALT (SGPT) 26 13 - 61 U/L AST (SGOT) 21 15 - 37 U/L Alk. phosphata se 42 (L) 45 - 117 U/L Protein, total 5.1 (L) 6.4 - 8.2 g/dL Albumin 2.2 (L) 3.5 - 4.7 g/dL Globulin 2.9 1.7 - 4.7 g/dL A-G Ratio 0.8 0.7 - 2.8ABG:Recent Labs 11/20/1911 41PH 7.40PCO2 60*PO2 76*HCO3 37*FIO2 45.0Recent Glucose Results:Lab ResultsCo mponent Value Date/Time GLU 104 11/21/2018 04:20 AMCULTURES:All Micro Results Proce dure Component Value Units Date/Time CULTURE, URINE [[id number]] Collected: 11/20/18 0 900 Order Status: Completed Specimen: Urine from [place] Specimen Updated:11/20/18 094 9 CULTURE, BLOOD [[id number]] Collected: 11/07/181999 Order Status: Completed S pecimen: Blood Updated: 11/12/18640 Special Requests: NO SPECIAL REQUESTS C ulture result: NO GROWTH 5 DAYS CULTURE, BLOOD [[id number]] Collected: 11/07/18 2 010 Order Status: Completed Specimen: Blood Updated: 11/12/18640 Special Request s: NO SPECIAL REQUESTS Culture result: NO GROWTH 5 DAYS STREP PNEUMO AG, URINE [[id number]] Collected: 11/09/18 0700 Order Status: Completed Specimen: Other from Urine, random Updated: 048 Strep pneumo Ag, urine NEGATIVE Comment:Presu mptive negative suggests nocurrent or recent pneumococcal infection.Infection due to S.pneumonia cannot beruled out since the antigen presentin the sample may be belo w the detectionlimit of the test. This test is notintended as a substitute for gram stainand bacterial culture Method IMMUNOCHROMATOGRAPHIC MEMBRANE ASSAY LEG IONELLA PNEUMOPHILA AG, URINE [[id number]] Collected: 11/08/18 1145 Order Status: Completed Specimen: Urine Updated: 11/09/18 1048 Legionella Ag, urine NEGA TIVE Comment:PRESUMPTIVE NEGATIVE forL.pneumophila Serogroup 1Antigen in u rine,suggestingno recent or current infection.Infection due to Legionellacan not be ruled out since otherserogroups and species may causedisease,antigen may not bepresent in urine in earlyinfection, and the level ofantigen present in the urine may be below the detectionlimit of the test. Method IMMUNOCHROMATOGRAPHIC MEMBRANE A SSAY CULTURE, URINE [[id number]] Collected: 11/07/18 1930 Order Status: Canceled Sp ecimen: Urine from Clean catchXR Results (most recent):Results from [facility] encounter on 11/07/18XR ABD PORT 1 V Narrative KUB one view(s)History: Ileus .Comparison: Yesterday.There is diffuse ileus of the small and large bowel which has i ncreasedinvolving the small bowel. Air and fecal material is noted in the rectosigm oidcolon. The cecum appears to be in the right hemiabdomen but is otherwiseunchan ged. There is no evidence of obstruction, radiopaque gallstones, or kidneystones. The previously noted tube overlying the abdomen is no longer seen. Impression IM PRESSION: Increase of small bowel ileus.CT Results (most recent):Results from [facility] Encounter encounter on 11/07/18CTA CHEST W OR W WO CONT Narrative Examination: C TA Chest ? PE angiographyHistory: Hypoxia; rule out pneumonia versus pulmonary embo lismPriors: NoneTechnique: Low-dose, multiplanar, helical CTA chest was perfo rmed with bolus IV injection from lungapices to bases. 3D-reformatted images were ob tained and reviewed on adedicated viewing workstation anddirectly supervised.Contr ast: A total of 71 mL of Isovue-370 was administered intravenously for this proc edure.Findings:No evidence of pulmonary embolism is seen.There is decreased size of the right hemithorax from chronic scarring andretraction with mediastinals hift left to right. Additional area of consolidation is seen in the rightlower lobe and suggestssuperimposed pneumonia with subsegmental atelectasis. Subsegmental atelectasisis also noted in the leftlung base, with pleural parenchymal scarring. Low lung volumes are seen.No pneumothorax seen.Aorta normal in caliber without ane urysm or dissection.Mediastinum no adenopathy. Mediastinal shift is seen i n the left and right as a result of chronicchanges in the right hemithorax.H eart shows no chamber enlargement or pericardial effusion.No acute fractures seen in the bony thorax, sternum, manubrium and rib cage.Multiple compressiondeformi ties are seen in the mid and lower thoracic spine, with superimposedspondyloarthropa thy. Cannotexclude acute fracture. Impression Impression:No evidence of pul monary embolismRight lower lobe pneumonia suggested.Incidental scarring and retrac tion in the right hemithorax from remote/chronicinflammatory diseaseand/or trauma.Bibasilar subsegmental atelectasis.Report Electronically Signed By: Pawel Zafar M.D. - 11/08/2018 12:40 AMImages:[email or web address] HELP TEXTT his SmartLink requires a parameter for processing. Parameters are variableswhic h can be added to the original SmartLink name. This allows you to requestspecific information by giving the SmartLink precise direction.The BSHSILASTIMGCAT SmartLink accepts (as a parameter) an external procedure IDor an anatomical region. Typ ically, this external ID would be the CPT code.You can also request the number of procedures to be displayed by this SmartLink.To indicate the number, type t he procedure ID or anatomical regions followed bya colon and then the number o f procedures. To display all occurences for thatparticular procedure ID/anatomical r egions, type an asterisk in place of thenumber. To obtain only the last occur ence, type the procedure ID/anatomicalregions without the colon, number, or asterisk.T his SmartLink can display other procedures in the same procedure category if aparamete r is set.The SmartLink will display the last x cases of the procedure or anatomicalre gions you entered.Example: .BSHSILASTIMGCAT[[id number] example wo uld display results for the last three orders with an externalprocedure ID of [id number] he patient is: [x] acutely ill Risk of deterioration: [x] moderate [] criticall y ill [] highActive Problems: COPD (chronic obstructive pulmonary disease) ([facility]) () Acute respiratory distress (11/08/2018) Pneumonia (11/08/2018) COPD exacerbation ([facility]) (11/08/2018)IMPRESSION:COPD (chronic obst ructive pulmonary disease) ([facility]) (11/08/2018) Acute respiratory distress (11/08/2018) Pneumonia (11/08/2018) COPD exacerbation ([facility]) (11/08/2018) Acute resp failure c ombined,IMPROVING pneumonia L L L > R L L acute copd exacerbation P .. E . ruled out. BILATERAL BASAL ATELECTASES ASPRATIONS / DYSPHAGIA SEVERE CONSTIPAT IONPLAN,Monitoring,Iv ZOSYN AND VANCOMYCIN DECREASE SOLUMEDROL 20 MG Q 8 Hbipap prn and at night. SOHRTY LOZANO QIDD/W nursing staff. G I FOLLOWING PATIENT My assessment, plan of care, findings, medications, side effects etc werediscussed with:[x]nursing []PT/OT[x]respiratory therapy [][]norma jay []Critical Care Provided 50 minutes non procedure based.Krystian Monae MD F.C .C.P. Name Value Range Interpretation Code Description Data [facility](s) Supporting Document(s ) ID Date Data Source [id number] 11/21/2018 07:14:52 AM EDT [facility] Bedside and Verbal shift change report carol pham to NANCY Davey (oncoming nurse) Elizabet Hancock RN (offgoing nurse). Report in cluded the following information SBAR,Intake/Output, MAR, Recent Results, Med Rec Status and Cardiac Rhythm NSR. Name Value Range Interpretation Code Description Data [facility](s) Supporting Document(s ) ID Date Data Source [id number] 11/21/2018 05:39:18 AM EDT [facility] Name Value Range Interpretation Description Data Sup porting Code Source(s) Document(s ) Magnesium 1.7 mg/dL 1.6-2.6 [facility] - [Mass/volume] Community in Serum or Hospital Plasma ID Date Data Source [id number] 11/21/2018 06:00:12 AM EDT [facility] Name Value Range Interpretation Description Data Sup porting Code Source(s) Document(s ) Leukocytes 17.1 4.8-10.6 Above high normal [facility] - [#/volume] in K/uL Community Blood by Hospital Automated count Erythrocytes 3.65 4.70-6.0 Below low normal [facility] - [#/volume] in M/uL 0 [facility] Blood by Hospital Automated count Hemoglobin 11.9 14.0-18. Below low normal [facility] - [Mass/volume] in g/dL 0 [facility] Blood Hospital Hematocrit 34.9 % 42.0-52. Below low normal [facility] - [Volume 0 Community Fraction] of Hospital Blood by Automated count Erythrocyte mean 95.6 FL 81.0-94. Above high normal [facility] - corpuscular 0 Community volume [Entitic Hospital volume] by Automated count Erythrocyte mean 32.6 PG 27.0-35. [facility] - corpuscular 0 [facility] [Entitic mass] by Automated count Erythrocyte mean 34.1 30.7-37. [facility] - corpuscular g/dL 3 [facility] hemoglobin Hospital concentration [Mass/volume] by Automated count Erythrocyte 14.8 % 11.5-14. Above high normal [facility] - distribution 0 Community width [Ratio] by Hospital Automated count Platelets 171 K/uL 130-400 [facility] - [#/volume] in Community Blood by Hospital Automated count Platelet mean 9.3 FL 9.2-11.8 [facility] - volume [Entitic Community volume] in Blood Hospital by Automated count Segmented 94 % 48.0-72. Above high normal [facility] - neutrophils/100 0 Community leukocytes in Hospital Blood Lymphocytes/100 4 % 18.0-40. Below low normal [facility] - leukocytes in 0 [facility] Blood Hospital Monocytes/100 2 % 2.0-12.0 [facility] - leukocytes in [facility] Blood Hospital Eosinophils/100 0 % 0.0-7.0 [facility] - leukocytes in [facility] Blood Hospital Basophils/100 0 % 0.0-3.0 [facility] - leukocytes in [facility] Blood Hospital Segmented 16.0 1.5-6.6 Above high normal [facility] - neutrophils K/UL Community [#/volume] in Hospital Blood Lymphocytes 0.7 K/UL 1.5-3.5 Below low normal [facility] - [#/volume] in [facility] Blood Hospital Monocytes 0.3 K/UL 0.0-1.0 [facility] - [#/volume] in [facility] Blood Hospital Eosinophils 0.0 K/UL 0.0-0.7 [facility] - [#/volume] in [facility] Blood Hospital Basophils 0.0 K/UL 0.0-0.1 [facility] - [#/volume] in [facility] Blood Hospital Differential [facility] - cell count [facility] Immature 0 % 0.0-2.0 [facility] - granulocytes/100 Community leukocytes in Hospital Blood by Automated count ID Date Data Source [id number] 11/21/2018 05:39:18 AM EDT [facility] Name Value Range Interpretation Description Data Sup porting Code Source(s) Document(s ) Sodium 139 136-145 [facility] - [Moles/volume] in mmol/L [facility] Serum or Plasma Hospital Potassium 3.9 3.5-5.1 [facility] - [Moles/volume] in mmol/L [facility] Serum or Plasma Hospital Chloride 105 98-107 [facility] - [Moles/volume] in mmol/L [facility] Serum or Plasma Hospital Carbon dioxide, 30 21-32 [facility] - total mmol/L [facility] [Moles/volume] in Hospital Serum or Plasma Anion gap in Serum 8 10-20 Below low normal [facility] - or Plasma mmol/L [facility] Glucose 104 74-106 [facility] - [Mass/volume] in mg/dL [facility] Serum or Plasma Hospital Urea nitrogen 17 7-18 [facility] - [Mass/volume] in mg/dL [facility] Serum or Plasma Hospital Creatinine 0.32 0.70-1. Below low normal [facility] - [Mass/volume] in mg/dL 30 [facility] Serum or Plasma Hospital Glomerular >60 [facility] - filtration Community rate/1.73 sq M Hospital predicted among blacks [Volume Rate/Area] in Serum or Plasma by Creatinine-based formula (MDRD) Glomerular >60 [facility] - filtration Community rate/1.73 sq M Hospital predicted among non-blacks [Volume Rate/Area] in Serum or Plasma by Creatinine-based formula (MDRD) Calcium 9.1 8.5-10. [facility] - [Mass/volume] in mg/dL 1 [facility] Serum or Plasma Hospital Bilirubin.total 0.9 0.2-1.0 [facility] - [Mass/volume] in mg/dL [facility] Serum or Plasma Hospital Alanine 26 U/L 13-61 [facility] - aminotransferase Community [Enzymatic Hospital activity/volume] in Serum or Plasma Aspartate 21 U/L 15-37 [facility] - aminotransferase Community [Enzymatic Hospital activity/volume] in Serum or Plasma by With P-5'-P Alkaline 42 U/L 45-117 Below low normal [facility] - phosphatase Community [Enzymatic Hospital activity/volume] in Serum or Plasma Protein 5.1 6.4-8.2 Below low normal [facility] - [Mass/volume] in g/dL [facility] Serum or Plasma Hospital Albumin 2.2 3.5-4.7 Below low normal [facility] - [Mass/volume] in g/dL [facility] Serum or Plasma by Hospital Bromocresol purple (BCP) dye binding method Globulin 2.9 1.7-4.7 [facility] - [Mass/volume] in g/dL [facility] Serum by Hospital calculation Albumin/Globulin 0.8 0.7-2.8 [facility] - [Mass Ratio] in [facility] Serum or Plasma Hospital ID Date Data Source [id number] 11/20/2018 07:22:11 PM EDT [facility] Bedside and Verbal shift change report carol Gonzalez RN (oncoming nurse) byTamica Narayan RN (offgoing nurse). Report in cluded the following information SBAR, Kardex, EDSummary, Procedure Summary, In take/Output, MAR, Recent Results, Cardiac RhythmNSR and Alarm Parameters . Name Value Range Interpretation Code Description Data Harriett rce(s) Supporting Document(s ) ID Date Data Source [id number] 11/20/2018 06:20:47 PM EDT [facility] There is diffuse ileus of the small and large bowel which has increasedinvolving the small bowel. Air and fecal material is n oted in the rectosigmoidcolon. The cecum appears to be in the right hemiabdomen b ut is otherwiseunchanged. There is no evidence of obstruction, radiopaque gall stones, or kidneystones. The previously noted tube overlying the abdomen is no longer seen. IMPRESSIONIMPRESSION: Increase of small bowel ileus.Dr. Bender aware of a [place] KUB reading. As per MD hook G-tube to lowintermittent suction, repeat KUB in a m, and repeat CBC at 1600. G tube has had40 cc output this shift. Abdominal dressing intact, and patient has abdominalbinder in place, small amount of coffee ground out put in suction tuning.1800 Dr. Kaye updated on above, MD reviewed KUB. updated on G tube outputand most recent H/H 13.5/4. MD aware abdominal dressing still intact an dabdominal binder present. As per MD do not remove dressing to observe base of Gtube .Will continue to monitor. Name Value Range Interpretation Code Description Data Harriett rce(s) Supporting Document(s ) ID Date Data Source [id number] 11/20/2018 04:19:15 PM EDT [facility] PULMONARY/ CCM- Consult NotePatient: Ivelisse Carlin Sex: male DOA: 11/07/2018Date of : 1 Age: 68 y.o. LOS: LOS: 12 daysHPI:Emil Carlin is a 68 y. o. male who has been seen for resp failure.7:31 PM: Evelio Carlin is a 68 y.o. male with h/o COPD, GERD,hyperparathyroidism, mental retarda tion, Pneumonia, pulmonary embolism, andschizophrenia who presents to the ED via EMS for shortness of breath andwheezing. Per triage note patient was given Duo-Ne b and Solu-Medrol 40 mg IM atfacility. Seen earlier today,confused,breathing betterT ransferred to micu for resp distress,breathing better.was on bipap,p eg togravity.Past Medical History:Diagnosis Date Chronic obstructive pulmonary dise ase (HCC) GERD (gastroesophageal reflux disease) Hyperparathyroidism (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 Authorizing Providermultivitamin (ONE A DAY) tablet Take 1 Tab by mouth daily. Yes Provider,Historicalclorazepate (TRANXENE ) 3.75 mg tablet Take by mouth nightly. Yes Provider,Historicalalbuterol-ipratro pium (DUO-NEB) 2.5 mg-0.5 mg/3 ml nebu 3 mL by Nebulizationroute every six (6) hours as needed. Yes Provider, HistoricallamoTRIgine (LAMICTAL) 25 mg t ablet Take 50 mg by mouth two (2) times a day.Yes Provider, Historicalcinacalcet ( SENSIPAR) 30 mg tablet Take 60 mg by mouth daily. Yes Provider,Historicalvalproat e (DEPAKENE) 250 mg/5 mL syrup Take 750 mg by mouth two (2) times a day.Provider, Jazmine Thao Known AllergiesHistory reviewed. No pertinent surgical history.History revie wed. No pertinent family history.Social HistorySocioeconomic History Marital st atus: SINGLE Spouse name: Not on file Number of children: Not on file Years o f education: Not on file Highest education level: Not on fileTobacco Use Smoking s tatus: Never Smoker Smokeless tobacco: Never UsedSubstance and Sexual Activity Alcoh ol use: No Drug use: NoReview of SystemsPertinent items are noted in the History of Present Illness.Physical Exam:Current medications:Current Facilit y-Administered Medications: albuterol-ipratropium (DUO-NEB) 2.5 MG-0 .5 MG/3 ML, 3 mL, Nebulization, [id number] ARANDA Harinder, MD vancomycin (VANCOCI N) 1,000 mg in 0.9% sodium chloride 250 mL IVPB, 1,000 mg,IntraVENous, Q12H, Monica Gomez MD, Last Rate: 125 mL/hr at 11/20/18 1306,1,000 mg at 11/20/18 1306 methylPREDNISolone (PF) (SOLU-MEDROL) injection 40 mg, 40 mg, IntraVENous,Q8H, Krystian Monae MD, 40 mg at 11/20/18 1310 pantoprazole (PROTONIX) 40 mg in sodium chloride 0.9% 10 mL injection, 40 mg,IntraVENous, Q12H, Letty Kaye M D, 40 mg at 11/20/18 0915 metoclopramide HCl (REGLAN) injection 10 mg, 10 mg, Int raVENous, Q8H, Letty Kaye MD, 10 mg at 11/20/18 1310 acetaminophen (OFIRMEV) infusion 1,000 mg, 1,000 mg, IntraVENous, Q6H,Letty Kaye MD, Last Rate: 400 mL/hr at 11/20/18 1540, 1,000 mg at 540 LORazepam (ATIVAN) inject ion 0.5 mg, 0.5 mg, IntraVENous, QHS, Letty Kaye MD, Stopped at 11/19/18 2100 piperacillin-tazobactam (ZOSYN) 3.375 g in 0.9% sodium chloride (MBP/ADV) 100m L MBP, 3.375 g, IntraVENous, Q8H, Natasha Dudley MD, Last Rate: 25 mL/hr at 1311, 3.375 g at 11/20/18 1311 valproate (DEPACON) 250 mg in 0.9% sodium chloride 50 mL IVPB, 250 mg,IntraVENous, Q12H, Letty Kaye MD, Last Rate: 50 mL/hr at 11/20/18 0924,250 mg at 11/20/18 0924 0.9% sodium chloride 1,000 mL with mvi, adult no.4 with vit K 10 mL, [id number] mg, folic acid 1 mg infusion, , IntraVENous, Q24H, Letty Kaye MD,Stopped at 11/20/18 0636 albuterol-ipratropium (D UO-NEB) 2.5 MG-0.5 MG/3 ML, 3 mL, Nebulization, Q4HPRN, Letty Kaye M D, 3 mL at 11/19/18 0602 cinacalcet (SENSIPAR) tablet 60 mg, 60 mg, Oral, DA PIERRE, Letty Kaye MD,Stopped at 11/20/18 0915 budesonide (PULMICORT) 500 mcg/2 ml nebulizer suspension, 500 mcg,Nebulization, BID RT, Artemio Kaye MD, 500 mcg at 11/20/18 0819DataVisit VitalsBP 132/72 (BP 1 Location: Right ar m, BP Patient Position: At rest)Pulse 95Temp 97.4 F (36.3 C)Resp 15Ht 5' 2" (1.575 m)Wt 61.1 kg (134 lb 11.2 oz)SpO2 100%BMI 24.64 kg/m Intake and Output:Date 699 - 11/20/18 0611/20/18699 - 11/21/18 0659Shift 1185-7235 9587-9043 2 4 Hour Total 2686-3720 1755-9172 24 Hour TotalINTAKEI.V.(mL/kg/hr) 370(0.6) 1760( 2.4) 2130(1.5) 360 360 I.V. 20 20 10 10 Volume (0.9% sodium chloride 1,000 mL wi th mvi, adult no.4 with vit K 10 mL,thiamine 100 mg, folic acid 1 mg infusion) 1060 1060 Volume (acetaminophen (OFIRMEV) infusion 1,000 mg) 100 200 300 Volume ( piperacillin-tazobactam (ZOSYN) 3.375 g in 0.9% sodium chloride(MBP/ADV) 100 mL MBP ) 200 200 100 100 Volume (vancomycin (VANCOCIN) 1,000 mg in 0.9% sodium chlor wade 250 mL IVPB)250 250 500 250 250 Volume (valproate (DEPACON) 250 mg in 0.9% sodi um chloride 50 mL IVPB) 50 50NG/GT 30 30 Intake (ml) (PEG/Gastrostomy Tube ) 30 30Shift Total(mL/kg) 400(7.1) 1760(28.8) 2160(35.4) 360(5.9) 360(5.9) OUTPUTUrine(mL/kg/hr) 550(0.8) 350(0.5) 900(0.6) 50 50 Urine Output (mL) (Urin connor Catheter 11/19/18 Lozano) 550 350 900 50 50Emesis/NG output 1350 1350 Output (m l) (PEG/Gastrostomy Tube 11/17/18) 1350 1350Shift Total(mL/kg) 550(9.8) 1700(27. 8) 2250(36.8) 50(0.8) 50(0.8)NET -150 60 -90 310 310Weight (kg) 56 61.1 61.1 61.1 61 .1 61.1Pulse OX:SpO2 Readings from Last 6 Encounters:11/20/18 100%09/26/15 96%@LAS TSAO2(6)@PHYSICAL EXAM:General: Lethargic,responding.Head: Normocephal ic, without obvious abnormality, atraumatic.Eyes: Conjunctivae clear, a nicteric sclerae. Pupils are equalNose: Nares normal. No drainage or sinus tende rness.Throat: Lips, mucosa, and tongue normal. No ThrushNeck: Supple, symmetr ical, no adenopathy, thyroid: non tender no carotid bruit and no JVD.Back: Symmet rodger, No CVA tenderness.Lungs: Scattered rhonchi,Chest wall: No tenderness or de formity. No Accessory muscle use.Heart: Regular rate and rhythm, no murmur, rub or gallop.Abdomen: Soft, non-tender. Not distended. Bowel sounds normal. No mass esExtremities: Extremities normal, atraumatic, No cyanosis. No edema. No c lubbingSkin: Texture, turgor normal. No rashes or lesions. Not JaundicedLymph n odes: Cervical, supraclavicular normal.Psych: Good insight. Not depressed. Not anxi ous or agitated.Neurologic: EOMs intact. No facial asymmetry. No aphasia or slurred speech.Most recent labs:Recent Labs 11/19/1918WB C 20.6* 23.9* 25.4*HGB 12.9* 15.2 15.3HCT 39.0* 45.7 43.5PLT 149 175 224Recent Lab s 11/19/1918NA 139 139 -- 140 134*K 4.2 4.4 -- 3.2* 4.2CL 102 98 -- 98 98CO2 32 13* 39* 34* 32GLU 138* 61* -- 168* 110*BUN 18 5* -- 17 11CREA 0.41* 0.52* -- 0.47* 0.49*CA 9.3 7.1* -- 1 0.5* 9.8MG 1.7 -- -- 1.7 1.8ALB 2.3* 1.4* -- 3.1* 2.5*TBILI 0.8 1.0 -- 1.3* 1. 1*SGOT 19 31 -- 33 19ALT 25 38 -- 37 30Recent Labs 7.40PCO2 6 0*PO2 76*HCO3 37*FIO2 45.0ABG:Recent Labs 1PH 7.40PCO2 60*PO2 76*HCO3 3 7*FIO2 45.0Cultures:No results found for: SDESLab ResultsComponent Value Date/Time Culture result: NO GROWTH 5 DAYS 11/07/2018 08:10 PM Culture result: NO GROWTH 5 DAY S 11/07/2018 08:00 PMImages:Cta Chest W Or W Wo ContResult Date: 11/08/2018Examination : CTA Chest ? PE angiography History: Hypoxia; rule out pneumoniaversus pulmon connor embolism Priors: None Technique: Low-dose, multiplanar,helical CTA chest was performed with bolus IV injection from lung apices tobases. 3D-reformatted katja ges were obtained and reviewed on a dedicated viewingworkstation and directly supervis ed. Contrast: A total of 71 mL of Isovue-370was administered intravenously for this procedure. Findings: No evidence ofpulmonary embolism is seen. There is d ecreased size of the right hemithorax fromchronic scarring and retraction with mediastinal shift left to right.Additional area of consolidation is seen in the rig ht lower lobe and suggestssuperimposed pneumonia with subsegmental atelectasis. Subsegmental atelectasisis also noted in the left lung base, with pleural parench ymal scarring. Lowlung volumes are seen. No pneumothorax seen. Aorta normal in calib er withoutaneurysm or dissection. Mediastinum no adenopathy. Mediastinal shift is see n inthe left and right as a result of chronic changes in the right hemithorax. Heart shows no chamber enlargement or pericardial effusion. No acute fractures seen in the bony thorax, sternum, manubrium and rib cage. Multiple compressiondefor mities are seen in the mid and lower thoracic spine, with superimposedspondyloarthropa thy. Cannot exclude acute fracture.Impression: No evidence of pul monary embolism Right lower lobe pneumoniasuggested. Incidental scarring and retraction in the right hemithorax fromremote/chronic inflammatory disease and/or trauma. Bibasilar subsegmentalatelectasis. Report Electron ically Signed By: Pawel Zafar M.D. -11/08/2018 12:40 AMXr Chest PortResult D ate: 11/07/2018XR CHEST PORT CLINICAL INDICATION PROVIDED:. "sob." COMPARISON: . 09/26/2015.FINDINGS:. The pericardial/cardiac silhouette is enlarg ed in the transversedimension. There is no pulmonary vascular congestion or interst itial edema.Linear density in the left lung base and faint densities in the right mi d tolower lung likely represent atelectasis. There is no lobar consolidation oreffusi on. There is no pneumothorax.IMPRESSION:. Bilateral lower lung atelectasis. No donna dence of consolidation oreffusion.Assessment/PlanActive Problem s: COPD (chronic obstructive pulmonary disease) (HCC) (11/08/2018) Acute respir atory distress (11/08/2018) Pneumonia (11/08/2018) COPD exacerbation (HCC) () Acute resp failure combined, pneumonia acute copd exacerbation pe rul ed out.PLAN,Monitoring,bipap prn for resp distressIvabx,Iv steroids taperedbipap p rn and at night.NebS/p peg,feeding started.D/w nursing staff.Pantera Munson 2018The billing code submitted in association with this evaluation also includes thetime to review patient's prior records, communicate with the physician team,obtain corroborating data, and discuss the risk and benefits of the proposedman agement plan with the patient and their family >30 minutes. Name Value Range Interpretation Code Description Data Harriett rce(s) Supporting Document(s ) ID Date Data Source [id number] 11/20/2018 04:53:35 PM EDT [facility] Name Value Range Interpretation Description Data Sup porting Code Source(s) Document(s ) Leukocytes 21.5 4.8-10.6 Above high normal [facility] - [#/volume] in K/uL [facility] Automated count Erythrocytes 4.13 4.70-6.0 Below low normal [facility] - [#/volume] in M/uL 0 [facility] Automated count Hemoglobin 13.5 14.0-18. Below low normal [facility] - [Mass/volume] in g/dL 0 [facility] Blood Hospital Hematocrit 41.0 % 42.0-52. Below low normal [facility] - [Volume 0 Community Fraction] of Hospital Blood by Automated count Erythrocyte mean 99.3 FL 81.0-94. Above high normal [facility] - corpuscular 0 [facility] volume [[facility] volume] by Automated count Erythrocyte mean 32.7 PG 27.0-35. [facility] - corpuscular 0 [facility] hemoglobin Hospital [Entitic mass] by Automated count Erythrocyte mean 32.9 30.7-37. [facility] - corpuscular g/dL 3 [facility] hemoglobin Hospital concentration [Mass/volume] by Automated count Erythrocyte 15.0 % 11.5-14. Above high normal [facility] - distribution 0 Community width [Ratio] by Hospital Automated count Platelets 167 K/uL 130-400 [facility] - [#/volume] in [facility] Blood by Hospital Automated count Platelet mean 9.5 FL 9.2-11.8 [facility] - volume [Entitic Community volume] in Blood Hospital by Automated count Segmented 94 % 48.0-72. Above high normal [facility] - neutrophils/100 0 Community leukocytes in Hospital Blood Lymphocytes/100 4 % 18.0-40. Below low normal [facility] - leukocytes in 0 [facility] Blood Hospital Monocytes/100 2 % 2.0-12.0 [facility] - leukocytes in [facility] Blood Hospital Eosinophils/100 0 % 0.0-7.0 [facility] - leukocytes in [facility] Blood Hospital Basophils/100 0 % 0.0-3.0 [facility] - leukocytes in [facility] Blood Hospital Segmented 20.3 1.5-6.6 Above high normal [facility] - neutrophils K/UL Community [#/volume] in Hospital Blood Lymphocytes 0.8 K/UL 1.5-3.5 Below low normal [facility] - [#/volume] in [facility] Monocytes 0.3 K/UL 0.0-1.0 [facility] - [#/volume] in [facility] Eosinophils 0.0 K/UL 0.0-0.7 [facility] - [#/volume] in [facility] Basophils 0.0 K/UL 0.0-0.1 [facility] - [#/volume] in [facility] Differential [facility] - cell count [facility] Immature 0 % 0.0-2.0 [facility] - granulocytes/100 [facility] leukocytes in Hospital Blood by Automated count ID Date Data Source [id number] 11/20/2018 02:59:09 PM EDT [facility] The patient's Clinical Indicators includ e:A/W COPD exac., pneumonia acute respiratory failure and documentation fromInfect dis ease of Sepsis POA and Pulmonary of Sepsis . HR 112, resp 23, , wbc6.6 > 23.0, lactic acid 4.1 . Blood culture no growth x 5 daysClarification of Clinical Findings a fter further review: Please document inprogress notes-Sepsis POA-Sepsis Ruled Out-Other Name Value Range Interpretation Code Description Data [facility](s) Supporting Document(s ) ID Date Data Source [id number] 11/20/2018 12:40:42 PM EDT [facility] KUB one view(s)History: Ileus.Compariso n: Yesterday.There is diffuse ileus of the small and large bowel which has increase dinvolving the small bowel. Air and fecal material is noted in the rectosigmoidcol on. The cecum appears to be in the right hemiabdomen but is otherwiseunchanged. T here is no evidence of obstruction, radiopaque gallstones, orkidneystones. T he previously noted tube overlying the abdomen is no longer seen.IMPRESSION: In crease of small bowel ileus.Signing date/time: 11/20/2018 12:40 PMSigned by: LIONEL BANGURA Name Value Range Interpretation Code Description Data Harriett rce(s) Supporting Document(s ) ID Date Data Source [id number] 11/20/2018 11:54:50 AM EDT [facility] - [facility] ID Progress Note11/20/2018Subjective:Pt tr ansferred to CCU with respiratory distress, currently on nasal canula andat base michaela ePatient with MR,schizophrenia,non verbal.Unable to provide any history.Afe brile but tachycardic, he is S/p surgical peg placement 11/17/18, + coffeeground emesisW bc downtrending to 25K,Objective:Vitals:Patient Vitals for the past 24 hrs: BP Temp Pulse Resp SpO2 Sbntln94/08/19 1100 117/66 - 73 19 98 % -11/20/18 1000 (!) 119/93 - 91 18 94 % -11/20/18 0900 141/75 - 89 17 97 % -08/0 12/01 0820 - - - - 96 % -11/20/18 0800 158/85 97.4 F (36.3 C) 78 18 98 % -11/20/18 0 700 140/81 - 75 19 95 % -11/20/18 0600 151/85 - 80 18 97 % -11/20/18 0500 134/75 - 75 19 95 % -11/20/18 0424 - - - - 95 % -11/20/18 0400 94/56 98.7 F (37.1 C) 84 24 95 % -11/20/18 0300 90/66 - 85 27 95 % -11/20/18 0200 97/61 - 93 24 94 % 61.1 kg (134 lb 11.2 oz)11/20/18 0108 - - - - 95 % -11/20/18 0100 139/68 - (!) 101 19 98 % -11/20/18 0000 121/73 99 F (37.2 C) (!) 101 18 96 % -11/19/18 2300 132/70 - (!) 101 24 92 % -11/19/18 2200 131/74 - 93 19 99 % -11/19/18 2150 - - - - 94 % -11/19/18 2100 130/70 - 100 23 93 % -11/19/18 2000 139/64 98 F (36.7 C) 95 16 93 % -11/19/18 1900 133/ 77 - 90 21 95 % -11/19/18 1800 137/82 - 98 19 95 % -11/19/18 1700 155/88 - 83 15 - - 1627 - - - - 98 % -11/19/18 1600 143/83 98 F (36.7 C) 85 15 90 % -11/19 1500 122/80 - 84 24 100 % -11/19/18 1459 111/83 - 86 23 98 % -11/19/18 1430 - - 8 7 17 98 % -11/19/18 1400 (!) 171/125 - 90 18 100 % -11/19/18 1330 - - 98 17 94 % -10/31 1318 - - - - 94 % -11/19/18 1300 151/89 98.4 F (36.9 C) 89 19 98 % -11/19/18 1 241 - - - - 99 % -Tmax: Temp (24hrs), Av.3 F (36.8 C), Min:97.4 F (36.3 C), Max:99 F(37.2 C)Physical Exam:General: Awake non verbal cooperat britni, no distressEyes: Conjunctivae/corneas clear. PERRLNeck: Supple, symmetrical, t rachea midline, no adenopathyLungs: Bilateral breath sounds with basal crack les..Heart: Regular rate and rhythm, S1, S2 normalAbdomen: Soft, non-tender. Bowel sounds normal. Peg+Back: No CVA tenderness.Extremities: No cyanosis or e yana.Pulses: 2+ and symmetric all extremities.Skin: Skin color, texture, t urgor normal. No rashes or lesionsLymph nodes: Cervical, supraclavicular, and ax illary nodes normal.Current Facility-Administered MedicationsMedicat ion Dose Route Frequency vancomycin (VANCOCIN) 1,000 mg in 0.9% sodium chlor wade 250 mL IVPB 1,000 mgIntraVENous Q12H albuterol-ipratropium (DUO-NEB) 2.5 MG-0 .5 MG/3 ML 3 mL Nebulization Q4H RT methylPREDNISolone (PF) (SOLU-MEDROL) in jection 40 mg 40 mg IntraVENous Q8H pantoprazole (PROTONIX) 40 mg in sodium chloride 0.9% 10 mL injection 40 mgIntraVENous Q12H metoclopramide HCl ( REGLAN) injection 10 mg 10 mg IntraVENous Q8H acetaminophen (OFIRMEV) infusion 1, 000 mg 1,000 mg IntraVENous Q6H LORazepam (ATIVAN) injection 0.5 mg 0.5 mg IntraV ENous QHS piperacillin-tazobactam (ZOSYN) 3.375 g in 0.9% sodium chloride (MBP/ADV ) 100mL MBP 3.375 g IntraVENous Q8H valproate (DEPACON) 250 mg in 0.9% sodiu m chloride 50 mL IVPB 250 mgIntraVENous Q12H 0.9% sodium chloride 1,000 mL with mvi, adult no.4 with vit K 10 mL, [id number] mg, folic acid 1 mg infusion IntraVENous Q 24H albuterol-ipratropium (DUO-NEB) 2.5 MG-0.5 MG/3 ML 3 mL Nebulization Q4H TN N cinacalcet (SENSIPAR) tablet 60 mg 60 mg Oral DAILY budesonide (PULMICORT) 500 m cg/2 ml nebulizer suspension 500 mcg NebulizationBID RTLabs:Recent Labs 11/19/1918WBC 20.6* 23.9* 25.4* 18.9*H GB 12.9* 15.2 15.3 14.9PLT 149 175 224 207BUN 18 5* 17 11CREA 0.41* 0.52* 0.47* 0.49*S GOT 19 31 33 19AP 41* 60 56 44*TBILI 0.8 1.0 1.3* 1.1*Cultures:Lab ResultsComponent V alue Date/Time Culture result: NO GROWTH 5 DAYS 11/07/2018 08:10 PM Culture result: NO GROWTH 5 DAYS 11/07/2018 08:00 PMRadiology:Xr Abd (kub)Result Date: 11/19XR ABD (KUB)-SINGLE VIEW PRIOR: None HISTORY: Evaluate for G-tube placementFI NDINGS: The examination is limited-the pt is in an AKHTAR/LPO position. A tubeoverlies t he abdomen extending from the right lower quadrant to the left upperquadrant and w hether this represents a gastric tube cannot be definitivelydetermined. The bowel gas pattern is nonspecific. No abnormally dilated loop ofbowel, bowel wall thicken ing, pneumatosis or free air is identified. No abnormaldensities or calcifications a re identified. There are midline surgical skinstaples identified. The visualized o sseous structures are unremarkable.IMPRESSION: 1. Tube overly ing the abdomen terminating in the region of stomach;as described and discussed above on this single oblique view the exact locationof this tube cannot be determine d. 2. Otherwise unremarkable abdomen/KUB.Assessment: Sepsis POA Asp iration pneumonia Dysphagia s/p peg placement COPD S/p PEG placementPlan: 1. Continue IV zosyn.2. Continue IV vancomycin3. Follow up Pantera Zaman AM Name Value Range Interpretation Code Description Data Harriett rce(s) Supporting Document(s ) ID Date Data Source [id number] 11/20/2018 11:39:38 AM EDT [facility] Name Value Range Interpretation Description Data Sup porting Code Source(s) Document(s ) Vancomycin 9.4 ug/mL 10-20 Below low normal [facility] - [Mass/volume] Community in Serum or Hospital Plasma --trough (NOTE)Trough levels of 15-20 ug/mL shoul d be targeted for patients withcoagulase negative Staphylococcus and MRSA pneumon ia, endocarditis,osteomyelitis, meningitis, and bacteremia; as well as patients notr esponding to lower levels. Trough levels of 10-15 ug/mL forinfections from other harriett rces (e.g. urinary tract, cellulitis) areappropriate. All patients receiving c oncomitant nephrotoxic therapiesshould have their function closely monitored regardl ess of peak ortrough levels. ID Date Data Source [id number] 11/20/2018 11:06:34 AM EDT [facility] NUTRITIONINTERDISCIPLINARY ROUNDS NOTEPa tient discussed during interdisciplinary rounds.S/P gastrostomy tube 11/17.Transfer red to ICU for impending respiratory failure. Not intubated, was onbipap, now on nasa l canula.EN on hold with PEG to gravity and >1300mL drainage overnight (coffee groun d).KUB showed air, distended stomach. Plan is to hold EN, repeat KUB today, maycons ider role of parenteral nutrition if status does not improve per GI.Labs and medicat ions reviewed. Receiving 1000mL NS with MVI, Vit K, thiamine,and folic acid.Skin inte grity reviewed.Today's weight 61.1kg, up 1kg from initial bedscale weight.Nutrition D iagnosis: remains the same (Increased protein and energy needs). Once able to initiate EN: Suggest at Osmolite 1.5 @20 mL/hr, increase to goal of55 mL/hr (1980 kcal, 83 gm pro, 269 gm CHO, 65 gm fat, 1006 mL free water), [id number] mL free water flush q 3 hr once IVF d/c'd.If unable to resume EN, consider role of parenteral nutritio n.Monitor GI status.Adjust EN as appropriate. Discharge Planning: Pending clinical cou Carlita Espinoza RD Name Value Range Interpretation Code Description Data [facility](s) Supporting Document(s ) ID Date Data Source [id number] 11/20/2018 11:05:23 AM EDT [facility] Problem: Nutrition DeficitGoal: *Optimiz e nutritional statusDescriptionConsumption of >50% meals/snacks/supplements daily wit hin 3-7 daysOutcome: Not Progressing Towards GoalNo EN 2* PEG drainage and free air o n KUB.Once able to initiate EN: Suggest at Osmolite 1.5 @20 mL/hr, increase to goal of55 mL/hr with 125 mL free water flush q 3 hr once IVF d/c'd.If unable to resume EN , consider role of parenteral nutrition. Name Value Range Interpretation Code Description Data [facility](s) Supporting Document(s ) ID Date Data Source [id number] 11/20/2018 10:59:11 AM EDT [facility] Asked to f/u by Dr. Kaye for managemen t of nutrition.Pt underwent surgical g tube placement on Saturday. Had been receiving feedsuntil yesterday afternoon when he was transferred to ICU yesterday for respdis tress.CXR noted large air distended stomachAXR did not note specific patholo gy but there does appear to be significantbowel gasAlso noted pt with d rop in hgb, rise in BUN and some coffee ground type materialfrom gtube attached to gravity drainage.Visit VitalsBP 140/81 (BP 1 Location: Right arm, BP Patient Positi on: At rest)Pulse 75Temp 97.4 F (36.3 C)Resp 19Ht 5' 2" (1.575 m)Wt 61.1 kg (1 34 lb 11.2 oz)SpO2 96%BMI 24.64 kg/m NADarousable but lethargicabd soft, gtub e under surgical dressing, no bleeding on skin side seenLabs reviewed as noted abo ve.Imp: S/p surgical G tube, resp distress seems improved today, Coffee groundsfro m the g tube with drop in hgb.Recs: While pt did have several NPO days last week, I w ould wait another 24-48hours to see if feeds can be restarted and parenteral nutritio n avoided. Perhis nurse, would also need additional access site for P/TPN. Evelyn nuepantoprazole IV, will repeat CBC this afternoon. Monitor output from gtube an da repeat axr is planned. Name Value Range Interpretation Code Description Data Harriett rce(s) Supporting Document(s ) ID Date Data Source [id number] 11/22/2018 07:42:18 AM EDT [facility] Name Value Range Interpretation Description Data Sup porting Code Source(s) Document(s ) Service comment [facility] - [facility] Bacteria BSS - identified in [facility] Unspecified Hospital specimen by Culture ID Date Data Source [id number] 11/20/2018 08:53:09 AM EDT [facility] - [facility] Progress NotePatient: Evelio Carlin SSN: [id number] of : 1950 Age: 68 y.o. Sex: maleAdmit Date: 11/07/20183 Days Post-OpProcedure: Procedure(s):GASTROSTOMY TUBE PLACEMENT and trimmed toe and finger nailsSubjective:Patient more awake and a ssuming his normal position (right lat decubitus) asseen prior to surgery.Objec tive:Visit VitalsBP 140/81 (BP 1 Location: Right arm, BP Patient Position: At rest) Pulse 75Temp 97.4 F (36.3 C)Resp 19Ht 5' 2" (1.575 m)Wt 61.1 kg (134 lb 11.2 oz)SpO2 96%BMI 24.64 kg/m Temp (24hrs), Av.2 F (36.8 C), Min:97.4 F (36.3 C), Max:99 F (37.2 C)g tube out put with coffee grounds 1350 yesterdayPhysical Exam:LUNG : clear to auscultation bilaterally, HEART: regular rate and rhythm, S1, R5lqivsv, n o murmur, click, rub or gallop, ABDOMEN: soft, non-tender. Bowel soundsnormal. Dr [place] dry and intact EXTREMITIES: extremities normal, atraumatic,no cyanos is or edemaData Review: reviewed I & OLab Data Reviewed:CBC w/Diff Recent Labs 11/19/1918WBC 20.6* 23.9* 25.4* 18.9*H GB 12.9* 15.2 15.3 14.9HCT 39.0* 45.7 43.5 41.9*MCV 98.0* 99.1* 95.4* 93.9PLT 149 1 75 224 207GRANS 92* -- 87* 89*LYMPH 4* -- 10* 7*EOS -- -- 0 0Chemistry Recent Labs 11/19/1918GLU 138* 61* -- 168*NA 139 139 -- 140K 4.2 4.4 -- 3.2*CL 102 98 -- 98CO2 32 13* 39* 34*BUN 18 5* -- 17CR EA 0.41* 0.52* -- 0.47* Recent Labs 11/19/1918A 9.3 7.1* 10.5*ALB 2.3* 1.4* 3.1*TBILI 0.8 1.0 1.3*AP 41* 60 56SGOT 19 31 33ALT 25 38 37Coagulation No results for input(s): PTP, INR, APTT in the last 72 hours.No l ab exists for component: INREXTXr Abd (kub)Result Date: 11/19/2018XR ABD (KUB)-S JANELLE VIEW PRIOR: None HISTORY: Evaluate for G-tube placementFINDINGS: The examinatio n is limited-the pt is in an AKHTAR/LPO position. A tubeoverlies the abdomen ext ending from the right lower quadrant to the left upperquadrant and whether this repr esents a gastric tube cannot be definitivelydetermined. The bowel gas pa ttern is nonspecific. No abnormally dilated loop ofbowel, bowel wall thickening, pne umatosis or free air is identified. No abnormaldensities or calcifications are identified. There are midline surgical skinstaples identified. The visualized o sseous structures are unremarkable.IMPRESSION: 1. Tube overly ing the abdomen terminating in the region of stomach;as described and discussed above on this single oblique view the exact locationof this tube cannot be determine d. 2. Otherwise unremarkable abdomen/KUB.Xr Chest PortResult Date: 11/19/2018History: Respiratory difficulty. FINDINGS: A frontal portable view of the chestis compared to the prior study of 11/07/2016. A large gas-filled structure isnoted beneath the left diaphragm, unchanged, likely representing the stomach.The cardiac tyrell houette is normal in size. There is again noted to be shift ofmediastinal structur es to the right. There are some streaky and patchy changesat the right lung base not seen on the prior study and the possibility ofinfiltrative change cannot be excluded . A few nonspecific left basilar streaksare noted as well. Prominence of the right h ilum is unchanged and may merely carlos enrique a result of the shift of mediastinal struc tures.IMPRESSION: New patchy opacity at the right lung base may be infiltrative orat electatic in nature. Few left basilar streaks are noted as well. 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 D (chronic obstructive pulmonary disease) (HCC) ICD-10-CM: J44.9ICD-9-CM: 496 10/14 Unknown Acute respiratory distress ICD-10-CM: R06.03ICD-9-CM: 518.82 2018 Unknown Pneumonia ICD-10-CM: J18.9ICD-9-CM: 486 11/08/2018 Unknown [place] PD exacerbation (HCC) ICD-10-CM: J44.1ICD-9-CM: 491.21 11/08/2018 Unknown Plan/Recommendations/Medical Decision Making:Added protonix for protection of stomachAdded reglan to promote motilityIleus hold feedings today, monitor out putReca ll GI consult for peripheral TPN and ileusSend urine for cultureSigned By: Eduin Kaye MD November 20, 2018 Name Value Range Interpretation Code Description Data Harriett rce(s) Supporting Document(s ) ID Date Data Source [id number] 11/20/2018 07:29:08 AM EDT [facility] Bedside and Verbal shift change report g ellynen to NANCY Davey (oncoming nurse) Elizabet Hancock RN (offgoing nurse). Report in cluded the following information SBAR, ED Summary,Procedure Summary, Intake/Output , MAR, Recent Results, Med Rec Status andCardiac Rhythm NSR. Name Value Range Interpretation Code Description Data Harriett rce(s) Supporting Document(s ) ID Date Data Source [id number] 11/20/2018 08:31:51 AM EDT [facility] Name Value Range Interpretation Description Data Sup porting Code Source(s) Document(s ) Leukocytes 20.6 4.8-10.6 Above high normal [facility] - [#/volume] in K/uL [facility] Blood by Hospital Automated count Erythrocytes 3.98 4.70-6.0 Below low normal [facility] - [#/volume] in M/uL 0 [facility] Blood by Hospital Automated count Hemoglobin 12.9 14.0-18. Below low normal [facility] - [Mass/volume] in g/dL 0 [facility] Blood [facility] Hematocrit 39.0 % 42.0-52. Below low normal [facility] - [Volume 0 Community Fraction] of Hospital Blood by Automated count Erythrocyte mean 98.0 FL 81.0-94. Above high normal [facility] - corpuscular 0 Community volume [Entitic Hospital volume] by Automated count Erythrocyte mean 32.4 PG 27.0-35. [facility] - corpuscular 0 [facility] hemoglobin Hospital [Entitic mass] by Automated count Erythrocyte mean 33.1 30.7-37. [facility] - corpuscular g/dL 3 [facility] hemoglobin Hospital concentration [Mass/volume] by Automated count Erythrocyte 14.5 % 11.5-14. Above high normal [facility] - distribution 0 Community width [Ratio] by Hospital Automated count Platelets 149 K/uL 130-400 [facility] - [#/volume] in Community Blood by Hospital Automated count Platelet mean 9.2 FL 9.2-11.8 [facility] - volume [Entitic Community volume] in Blood Hospital by Automated count Segmented 92 % 48-72 Above high normal [facility] - neutrophils/100 Community leukocytes in Hospital Blood by Manual count Lymphocytes/100 4 % 18-40 Below low normal [facility] - leukocytes in Community Blood by Manual Hospital count Monocytes/100 4 % 2-12 [facility] - leukocytes in Community Blood by Manual Hospital count Erythrocyte [facility] - morphology Community finding Hospital [Identifier] in Blood Platelet [facility] - adequacy Community [Presence] in Hospital Blood by Light microscopy Differential [facility] - cell count Community method - Blood Hospital ID Date Data Source [id number] 11/20/2018 04:52:52 AM EDT [facility] - [facility] Name Value Range Interpretation Description Data Sup porting Code Source(s) Document(s ) Sodium 139 136-145 [facility] - [Moles/volume] mmol/L Community in Serum or Hospital Plasma Potassium 4.2 3.5-5.1 [facility] - [Moles/volume] mmol/L Community in Serum or Hospital Plasma Chloride 102 98-107 [facility] - [Moles/volume] mmol/L Community in Serum or Hospital Plasma Carbon 32 21-32 [facility] - dioxide, total mmol/L Community [Moles/volume] Hospital in Serum or Plasma Anion gap in 9 mmol/L 10-20 Below low normal [facility] - Serum or [facility] Plasma Hospital Glucose 138 74-106 Above high normal [facility] - [Mass/volume] mg/dL Community in Serum or Hospital Plasma Urea nitrogen 18 mg/dL 7-18 [facility] - [Mass/volume] Community in Serum or Hospital Plasma Creatinine 0.41 0.70-1.3 Below low normal [facility] - [Mass/volume] mg/dL 0 Community in Serum or Hospital Plasma Glomerular >60 [facility] - filtration Community rate/1.73 sq M Hospital predicted among blacks [Volume Rate/Area] in Serum or Plasma by Creatinine-bas ed formula (MDRD) Glomerular >60 [facility] - filtration Community rate/1.73 sq M Hospital predicted among non-blacks [Volume Rate/Area] in Serum or Plasma by Creatinine-bas ed formula (MDRD) Calcium 9.3 8.5-10.1 [facility] - [Mass/volume] mg/dL Community in Serum or Hospital Plasma RESULTS CONFIRMED Bilirubin.total 0.8 mg/dL 0.2-1.0 [facility] - Commun ity [Mass/volume] in Serum or Hosp ital Plasma Alanine aminotransferase 25 U/L 13-61 [facility] - Community [Enzymatic activity/volume] Ho spital in Serum or Plasma Aspartate aminotransferase 19 U/L 15-37 [facility] - Community [Enzymatic activity/volume] Ho spital in Serum or Plasma by With P-5'-P Alkaline phosphatase 41 U/L 45-117 Below low normal [facility] - Community [Enzymatic activity/volume] Ho spital in Serum or Plasma Protein [Mass/volume] in 5.2 g/dL 6.4-8.2 Below low normal [facility] - Community Serum or Plasma Hospital Albumin [Mass/volume] in 2.3 g/dL 3.5-4.7 Below low normal [facility] - Community Serum or Plasma by Hospital Bromocresol purple (BCP) dye binding method Globulin [Mass/volume] in 2.9 g/dL 1.7-4.7 [facility] - Community Serum by calculation Hospital Albumin/Globulin [Mass 0.8 0.7-2.8 [facility] - Community Ratio] in Serum or Plasma Hosp ital ID Date Data Source [id number] 11/20/2018 04:48:14 AM EDT [facility] Name Value Range Interpretation Description Data Sup porting Code Source(s) Document(s ) Magnesium 1.7 mg/dL 1.6-2.6 [facility] - [Mass/volume] Community in Serum or Hospital Plasma ID Date Data Source [id number] 11/19/2018 10:21:50 PM EDT [facility] Name Value Range Interpretation Description Data Sup porting Code Source(s) Document(s ) Glucose 101 MG/DL 65-110 [facility] - [Mass/volume] Community in Blood by Hospital Automated test strip ID Date Data Source [id number] 11/19/2018 08:50:13 PM EDT [facility] Name Value Range Interpretation Description Data Sup porting Code Source(s) Document(s ) Sodium 139 136-145 [facility] - [Moles/volume] in mmol/L [facility] Serum or Plasma Hospital Potassium 4.4 3.5-5.1 [facility] - [Moles/volume] in mmol/L [facility] Serum or Plasma Hospital Chloride 98 98-107 [facility] - [Moles/volume] in mmol/L [facility] Serum or Plasma Hospital Carbon dioxide, 13 21-32 Below low normal [facility] - total mmol/L Community [Moles/volume] in Hospital Serum or Plasma Anion gap in Serum 32 10-20 Above high [facility] - or Plasma mmol/L normal [facility] Hospital Glucose 61 74-106 Below low normal [facility] - [Mass/volume] in mg/dL [facility] Serum or Plasma Hospital Urea nitrogen 5 mg/dL 7-18 Below low normal [facility] - [Mass/volume] in [facility] Serum or Plasma Hospital Creatinine 0.52 0.70-1. Below low normal [facility] - [Mass/volume] in mg/dL 30 [facility] Serum or Plasma Hospital Glomerular >60 [facility] - filtration Community rate/1.73 sq M Hospital predicted among blacks [Volume Rate/Area] in Serum or Plasma by Creatinine-based formula (MDRD) Glomerular >60 [facility] - filtration Community rate/1.73 sq M Hospital predicted among non-blacks [Volume Rate/Area] in Serum or Plasma by Creatinine-based formula (MDRD) Calcium 7.1 8.5-10. Below low normal [facility] - [Mass/volume] in mg/dL 1 [facility] Serum or Plasma Hospital Bilirubin.total 1.0 0.2-1.0 [facility] - [Mass/volume] in mg/dL [facility] Serum or Plasma Hospital Alanine 38 U/L 13-61 [facility] - aminotransferase Community [Enzymatic Hospital activity/volume] in Serum or Plasma Aspartate 31 U/L 15-37 [facility] - aminotransferase Community [Enzymatic Hospital activity/volume] in Serum or Plasma by With P-5'-P Alkaline 60 U/L 45-117 [facility] - phosphatase Community [Enzymatic Hospital activity/volume] in Serum or Plasma Protein 6.6 6.4-8.2 [facility] - [Mass/volume] in g/dL [facility] Serum or Plasma Hospital Albumin 1.4 3.5-4.7 Below low normal [facility] - [Mass/volume] in g/dL Community Serum or Plasma by Hospital Bromocresol purple (BCP) dye binding method Globulin 5.2 1.7-4.7 Above high [facility] - [Mass/volume] in g/dL normal Community Serum by Hospital calculation Albumin/Globulin 0.3 0.7-2.8 Below low normal [facility] - [Mass Ratio] in [facility] Serum or Plasma Hospital ID Date Data Source [id number] 11/19/2018 08:03:59 PM EDT [facility] Name Value Range Interpretation Description Data Sup porting Code Source(s) Document(s ) Leukocytes 23.9 4.8-10.6 Above high normal [facility] - [#/volume] in K/uL Community Blood by Hospital Automated count Erythrocytes 4.61 4.70-6.0 Below low normal [facility] - [#/volume] in M/uL 0 [facility] Blood by Hospital Automated count Hemoglobin 15.2 14.0-18. [facility] - [Mass/volume] in g/dL 0 [facility] Blood [facility] Hematocrit 45.7 % 42.0-52. [facility] - [Volume 0 Community Fraction] of Hospital Blood by Automated count Erythrocyte mean 99.1 FL 81.0-94. Above high normal [facility] - corpuscular 0 Community volume [Entitic Hospital volume] by Automated count Erythrocyte mean 33.0 PG 27.0-35. [facility] - corpuscular 0 [facility] hemoglobin Hospital [Entitic mass] by Automated count Erythrocyte mean 33.3 30.7-37. [facility] - corpuscular g/dL 3 [facility] hemoglobin Hospital concentration [Mass/volume] by Automated count Erythrocyte 14.5 % 11.5-14. Above high normal [facility] - distribution 0 Community width [Ratio] by Hospital Automated count Platelets 175 K/uL 130-400 [facility] - [#/volume] in [facility] Blood by Hospital Automated count Platelet mean 9.8 FL 9.2-11.8 [facility] - volume [[facility] volume] in [facility] by Automated count ID Date Data Source [id number] 11/19/2018 07:21:15 PM EDT [facility] Review BIPAP settings, alarms and use of skin adhesive with next shift RT Arik Respiratory equipment wiped clean with B martinez Sani Wipes as perdepartment policycurtis [facility], Name Value Range Interpretation Code Description Data Harriett rce(s) Supporting Document(s ) ID Date Data Source [id number] 11/19/2018 06:34:11 PM EDT [facility] Received Pt from T3.Pt is on Bipap.Pt is s/p Peg insertion on 11/17.Dressing to abdomen D/I.Noted Pt have incision with kalpana. No redness, bleeding or drainage noted.Peg site is dry, clean and intact.Abdominal binder in place.Pt has elroy mittens.Noted Pt attempting to push bipap from face.Redir ection provided, without good effect.Dr. Monae aware.New 2 IV inserted.Condom Ca th applied.VS as noted.No distress at this time.Continue with present interventions .3:30 Dr. Kaye in.MD ordered KUB and done.PEG drained to gravity.Dr Monae in .Mittens d/c'd as Pt noted pushing off Bipap.Elroy restraints ordered.Noted no ur ine output since transfer to CCU.Bladder US done.Lozano inserted for retention as per MD order.6:20p Dr. Wise came back. aware of PEG drainage.Enriquez/yelllow thick secre tion noted.Also noted coffee ground drainage. said to monitor for the next 8 hours.Kept Pt NPO for now.No distress.VS as noted.Continue to monitor. Name Value Range Interpretation Code Description Data Harriett rce(s) Supporting Document(s ) ID Date Data Source [id number] 11/19/2018 04:33:16 PM EDT [facility] XR ABD (KUB)-SINGLE VIEWPRIOR: NoneHISTO RY: Evaluate for G-tube placementFINDINGS: The examination is limited-the pt is in an AKHTAR/LPO position. A tubeoverlies the abdomen extending from the right lower q uadrant to the left upperquadrant and whether this represents a gastric tube cannot be definitivelydetermined.The bowel gas pattern is nonspecific. No abnormally dilated lo op of bowel,bowelwall thickening, pneumatosis or free air is identified. No abnormal d ensitiesorcalcifications are identified. There are midline surgical skin staplesi dentified.The visualized osseous structures are unremarkable.IMPRESSION: 1. Tube ov erlying the abdomen terminating in the region of stomach; asdescribed and discussed ab ove on this single oblique view the exact locationofthis tube cannot be determined .2. Otherwise unremarkable abdomen/KUB. Signing date/time: 11/19/2018 4:33 PMSign ed by: ALKA FOUNTAIN Name Value Range Interpretation Code Description Data [facility] rce(s) Supporting Document(s ) ID Date Data Source [id number] 11/19/2018 03:41:01 PM EDT [facility] G tube was clamped for transportWill jocelyn ce to gravity drainage and monitor out putPlan KUB Name Value Range Interpretation Code Description Data [facility] rce(s) Supporting Document(s ) ID Date Data Source [id number] 11/19/2018 02:10:29 PM EDT [facility] Just received in CCU from T3/ respirator y failure, may require intubation. Perchart review plan is for [facility] at [place] [facility] on ce medically stable. CM willfollow. Name Value Range Interpretation Code Description Data [facility] rce(s) Supporting Document(s ) ID Date Data Source [id number] 11/19/2018 12:49:55 PM EDT [facility] Critical Care Progress N [facility]Krystian Monae MD., F.C.C.P.Stella Hamilton MD., F.C.C.P. [address] [place] [address] [place] [address] Name: Evelio JohnsoninDOB: 1950MRN: [id number]: 11/19/2018Subjective:Mr. Carlin is a 68 y.o. year old male who is being see n for ACUTERESPIRATORY DISTRESS , PATIENT IS CONFUSED RR= 33- 35 / MT RETRACTING ALLACCESSORY MUSCLES , CONFUSED THRASHING IN BED , AGITATED , COLOR IR POOR, C YANOSIS ON NOSE . 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 6 C) 63 20 98 %Pulse OX:SpO2 Readings from Last 6 Encounters:11/19/18 99%09/26/15 9 6%@LASTSAO2(6)@Intake/Output:Last shift: 11/19 700 - 11/19 190In: 30Out: -Last 3 shifts: 11/17 1900 - 11/19 0700In: 2220 [I.V.:1750]Out: 1425 [Urine:1125]Intake/ Output Summary (Last 24 hours) at 11/19/2018 1233Last data filed at 11/19/2018 1007Gros s per 24 hourIntake 1900 mlOutput 525 mlNet 1375 mlHemodynamics:.@MAP.@CVPVentilator Settings:Ventilator VolumesVt Spont (ml): 204 mlVe Observed (l/min): 4.6 l/minMode Rate Tidal Volume Pressure FiO2 PEEP 45 %Peak airway pressure:Minute ventilat ion: 4.6 l/minARDS network Guidelines: Lung protective strategy and Pl pressure goal s N / Aless than or equal to 30Physical Exam:CONFUSED , THRASHING IN BED , AGIT ATED , CENTRAL CYANOSIS +.MARKED TACHYPNEA +. General: CONFUSED , UNRESPO NSIVE UN cooperative, SEVERERESPIRATORY distress, appears stated age. Head: Normocephalic, without obvious abnormality, atraumatic. Eyes : Conjunctivae/corneas clear. PERRL, EOMs intact. Nose: Nares normal. No drainage or sinus tenderness Throat: Lips, mucosa, and tongue jazzmine l Neck: Supple, symmetrical, trachea midline, no adenopathy,thyroid: no enlargement/tenderness/nodules, no carotid bruit and no JVD. Elham ngs: MARKED RALES + R L L , WHEEZING +2 to auscultationbilaterally. Chest Wall : No tenderness or deformity. Heart: Regular rate and rhythm, S1, S 2 normal, VERY STRONG E SGR 4-5 / 6 L P S B click, rub or NO gallop. Ab domen: Soft, non-tender. Bowel sounds normal. No masses, No organomegaly. Ex tremities: Extremities normal, atraumatic, no cyanosis or edema.MITTENS TOSAVE O2 Pulses: 4+ bilaterally Skin: Skin color, texture, turgor norm al. No rashes or lesions. Neurologic: MENTAL RETARDATION BUT HE IS MORE CO NFUSED , AGITATED .CNII-XII intact. No focal motor or sensory deficit.DATA:Current Fa cility-Administered MedicationsMedication Dose Route Frequency potassium chloride 10 mEq in 100 ml IVPB 10 mEq IntraVENous Q1H vancomycin (VANCOCIN) 1,000 mg in 0 .9% sodium chloride 250 mL IVPB 1,000 mgIntraVENous Q12H albuterol-ipratropiu m (DUO-NEB) 2.5 MG-0.5 MG/3 ML 3 mL Nebulization Q4H RT methylPREDNISolone (PF) (SOLU-MEDROL) injection 40 mg 40 mg IntraVENous Q8H acetaminophen (OFIRMEV) infusion 1,000 mg 1,000 mg IntraVENous Q6H LORazepam (ATIVAN) injection 0.5 mg 0.5 mg IntraVENous QHS piperacillin-tazobactam (ZOSYN) 3.375 g in 0.9% sodium chloride (MBP/ADV) 100mL MBP 3.375 g IntraVENous Q8H HYDROmorphone (DILAUDID) syringe 0.5 mg 0.5 mg IntraVENous Q6H PRN valproate (DEPACON) 250 mg in 0.9% sodium chloride 50 mL IVPB 250 mgIntraVENous Q12H 0.9% sodium chloride 1,000 mL with mvi, adult no.4 with vit K 10 mL, mg, folic acid 1 mg infusion IntraVENous Q24H a lbuterol-ipratropium (DUO-NEB) 2.5 MG-0.5 MG/3 ML 3 mL Nebulization Q4H PRN cina calcet (SENSIPAR) tablet 60 mg 60 mg Oral DAILY budesonide (PULMICORT) 500 mcg/2 ml nebulizer suspension 500 mcg NebulizationBID RTTelemetry: [x]Sinus [] A-flutter []Paced []A-fib []Multiple PVC'sLabs:Recent Results (from the past 24 hour(s))MAGNESIUM Collection Time: 11/19/18 6:05 AMResult Value Ref Range Magnesium 1.7 1.6 - 2.6 mg/dLMETABOLIC PANEL, COMPREHENSIVE Collection Time: 11/19/18 6:05 AMResult Value Ref Range Sodium 140 136 - 145 mmol/L Potassium 3.2 (L) 3.5 - 5.1 mmol/L Chloride 98 98 - 107 mmol/L CO2 34 (H) 21 - 32 mmol/L Anion gap 11 10 - 20 mmol/L Glucose 168 (H) 74 - 106 mg/dL BUN 17 7 - 18 mg/dL Creatinine 0.47 (L) 0.70 - 1.30 mg/dL GFR est AA >60 >60 ml/min/1.73m2 GFR est non-AA >60 >60 ml/min/1.73m2 Inez cium 10.5 (H) 8.5 - 10.1 mg/dL Bilirubin, total 1.3 (H) 0.2 - 1.0 mg/dL ALT (SGPT) 37 13 - 61 U/L AST (SGOT) 33 15 - 37 U/L Alk. phosphatase 56 45 - 117 U/L Protein , total 6.4 6.4 - 8.2 g/dL Albumin 3.1 (L) 3.5 - 4.7 g/dL Globulin 3.3 1.7 - 4.7 g/ dL A-G Ratio 0.9 0.7 - 2.8CBC WITH AUTOMATED DIFF Collection Time: 11/19/18 6:05 AMR esult Value Ref Range WBC 25.4 (H) 4.8 - 10.6 K/uL RBC 4.56 (L) 4.70 - 6.00 M/uL HGB 1 5.3 14.0 - 18.0 g/dL HCT 43.5 42.0 - 52.0 % MCV 95.4 (H) 81.0 - 94.0 FL MCH 33.6 27. 0 - 35.0 PG MCHC 35.2 30.7 - 37.3 g/dL RDW 14.2 (H) 11.5 - 14.0 % PLATELET 224 130 - 400 K/uL MPV 9.9 9.2 - 11.8 FL NEUTROPHILS 87 (H) 48.0 - 72.0 % LYMPHOCYTES 10 (L) 18.0 - 40.0 % MONOCYTES 3 2.0 - 12.0 % EOSINOPHILS 0 0.0 - 7.0 % BASOPHILS 0 0. 0 - 3.0 % RBC COMMENTS NORMOCYTIC, NORMOCHROMIC PLATELET ESTIMATE ADEQUATE DF AUTOMATED ABS. NEUTROPHILS 21.9 (H) 1.5 - 6.6 K/UL ABS. LYMPHOCYTES 2.6 1.5 - 3.5 K/UL ABS. MONOCYTES 0.8 0.0 - 1.0 K/UL ABS. EOSINOPHILS 0.0 0.0 - 0.7 K/UL ABS. BASO PHILS 0.0 0.0 - 0.1 K/ULABG:No results for input(s): PH, PCO2, PO2, HCO3, FIO2 in t he last 72 hours.Recent Glucose Results:Lab ResultsComponent Value Date/Time GLU 168 (H) 11/19/2018 06:05 AMCULTURES:All Micro Results Procedure Component Value Units Date/Time CULTURE, BLOOD [[id number]] Collected: 11/07/181999 Order Status: Completed Specimen: Blood Updated: 11/12/18640 Special Requests: NO SPEC IAL REQUESTS Culture result: NO GROWTH 5 DAYS CULTURE, BLOOD [[id number]] Collecte d: 11/07/182009 Order Status: Completed Specimen: Blood Updated: 07/31/19 0641 Special Requests: NO SPECIAL REQUESTS Culture result: NO GROWTH 5 DAYS STREP P NEUMO AG, URINE [[id number]] Collected: 11/09/18 0700 Order Status: Completed S pecimen: Other from Urine, random Updated: 048 Strep pneumo Ag, urine NEG ATIVE Comment:Presumptive negative suggests nocurrent or recent pneumococcal infecti on.Infection due to S.pneumonia cannot beruled out since the antigen presentin the sample may be below the detectionlimit of the test. This test is notintended as a substitute for gram stainand bacterial culture Method IMMUNOCHROMATOGRAPHIC M EMBRANE ASSAY LEGIONELLA PNEUMOPHILA AG, URINE [[id number]] Collected: 11/08/18 1 145 Order Status: Completed Specimen: Urine Updated: 11/09/18 1048 Legionella Ag, urine NEGATIVE Comment:PRESUMPTIVE NEGATIVE forL.pneumophila Serogroup 1Antigen in u rine,suggestingno recent or current infection.Infection due to Legionellacan not be ruled out since otherserogroups and species may causedisease,antigen may not bepresent in urine in earlyinfection, and the level ofantigen present in the urine may be below the detectionlimit of the test. Method IMMUNOCHROMATOGRAPHIC MEMBRANE A SSAY CULTURE, URINE [[id number]] Collected: 11/07/18 1930 Order Status: Canceled Sp ecimen: Urine from Clean catchXR Results (most recent):Results from [facility] encounter on 11/07/18XR CHEST PORT Narrative History:Respiratory difficulty .FINDINGS:A frontal portable view of the chest is compared to the prior study of.A large gas-filled structure is noted beneath the left diaphragm, unchan ged,likely representing the stomach.The cardiac silhouette is normal in size. Th ere is again noted to be shift ofmediastinal structures to the right. There are some streaky and patchy changesat the right lung base not seen on the prior study and the possibility ofinfiltrative change cannot be excluded. A few nonspecific left basilar streaksare noted as well. Prominence of the right hilum is unchanged and may merely carlos enrique a result of the shift of mediastinal structures. Impression IMPRESSION:New pa tchy opacity at the right lung base may be infiltrative or atelectatic innature. Fe w left basilar streaks are noted as well.Otherwise findings similar.CT Resul ts (most recent):Results from Hospital Encounter encounter on 11/07/18CTA CHEST W OR W WO CONT Narrative Examination: CTA Chest ? PE angiographyHistory: Hypoxia; rule out pneumonia versus pulmonary embolismPriors: NoneTechnique: Low-dos e, multiplanar, helical CTA chest was performed with bolus IV injection from l ungapices to bases. 3D-reformatted images were obtained and reviewed on adedicated viewing workstation anddirectly supervised.Contrast: A total of 71 mL of Isovue-370 was administered intravenously for this procedure.Findings:No evidence of pulmonary embolism is seen.There is decreased size of the right hemithorax f rom chronic scarring andretraction with mediastinalshift left to right. Additio nal area of consolidation is seen in the rightlower lobe and suggestssuperimposed pneumonia with subsegmental atelectasis. Subsegmental atelectasisis also noted in the leftlung base, with pleural parenchymal scarring. Low lung volumes are seen.No pneumothorax seen.Aorta normal in caliber without aneurysm or dissection.Mediastin um no adenopathy. Mediastinal shift is seen in the left and right as a result of chr onicchanges in the right hemithorax.Heart shows no chamber enlargement or pericard ial effusion.No acute fractures seen in the bony thorax, sternum, manubrium and rib cage.Multiple compressiondeformities are seen in the mid and lower thoracic spine, wit h superimposedspondyloarthropathy. Cannotexclude acute fracture. Impression Impression:No evidence of pulmonary embolismRight lower lobe pneumonia sugge sted.Incidental scarring and retraction in the right hemithorax from remote/chronic inflammatory diseaseand/or trauma.Bibasilar subsegmental atelectasis.Report Gloria abraham Signed By: Pawel Zafar M.D. - 11/08/2018 12:40 AMImages:[email or web address] TEXTThis SmartLink requires a parameter for processing. Parameters are variables which can be added to the original SmartLink name. This allows you to requestspecific information by giving the SmartLink precise direction.The BSHSILASTIMGCAT SmartLink accepts (as a parameter) an external procedure IDor an anatomical region. Typ leigh, this external ID would be the CPT code.You can also request the number of procedures to be displayed by this SmartLink.To indicate the number, type t he procedure ID or anatomical regions followed bya colon and then the number o f procedures. To display all occurences for thatparticular procedure ID/anatomical r egions, type an asterisk in place of thenumber. To obtain only the last occur ence, type the procedure ID/anatomicalregions without the colon, number, or asterisk.T his SmartLink can display other procedures in the same procedure category if aparamete r is set.The SmartLink will display the last x cases of the procedure or anatomicalre gions you entered.Example: .BSHSILASTIMGCAT[[id number]:3This example wo uld display results for the last three orders with an externalprocedure ID of [id number] he patient is: [] acutely ill Risk of deterioration: [] moderate [x] criticall y ill [x] highActive Problems: COPD (chronic obstructive pulmonary disease) ([facility]) (11/08/2018) Acute respiratory distress (11/08/2018) Pneumonia (11/08/2018) COPD exacerbation ([facility]) (11/08/2018)IMPRESSION:1. IMPENDING ACUTE RESPIRATORY FAILURE2. ASPIRATION PNEUMNOA3. ASPIRATION4. SEPSIS5. S/P SURGICAL JEJUJOSTOMY TUB E INSERTION 11/18/20186. MENTAL RETARDATIONPLAN:1. RIGHT NOW BIPAP STA RTED BUT HE IS CONFUSED MAY NOT BE ABLE TO CLEARSECRETIONS2. HE MAY NEED INTUBATIO N AND VENTILATOR SUPPORT .3. \\3 TRANSFER TO [facility] , DISCUSSED WITH WITH CHARGE NURSE MISS PADILLA4. START I V SOLUMEDROL5. DUO NEB Q 4 H6. I V FLUIDS7. I V AN TIBIOTICS PER I. DMy assessment, plan of care, findings, medications, side eff ects etc werediscussed with:[x]nursing []PT/OT[x]respiratory therapy [x]Dr. REYES SON[]family []Critical Care Provided 60 minutes non procedure based.Krystian Monae MD F.C.C.P. Name Value Range Interpretation Code Description Data Harriett rce(s) Supporting Document(s ) ID Date Data Source [id number] 11/19/2018 12:42:02 PM EDT [facility] - [facility] Name Value Range Interpretation Description Data Sup porting Code Source(s) Document(s ) pH of Arterial 7.40 7.35-7.4 [facility] - blood 5 [facility] Hospital Carbon dioxide 60 mmHg 32-48 Above high normal [facility] - [Partial Community pressure] in Hospital Arterial blood Oxygen 76 mmHg 83-108 Below low normal [facility] - [Partial Community pressure] in Hospital Arterial blood Carbon 39 19-24 Above high normal [facility] - dioxide, total mmol/L [facility] [Moles/volume] Hospital in Arterial blood Bicarbonate 37 21-28 Above high normal [facility] - [Moles/volume] mmol/L [facility] in Arterial Hospital blood Oxygen 96 % 94-98 [facility] - saturation in [facility] Blood Hospital Base excess in 10.0 0-3 Above high normal [facility] - Arterial blood mmol/L [facility] by calculation Hospital Body site [facility] - [facility] Hospital Oxygen gas [facility] - flow Oxygen [facility] delivery Hospital system Oxygen/Inspire 45.0 % [facility] - d gas [facility] Respiratory Hospital system --on ventilator Ventilation [facility] - mode [facility] [Identifier] Hospital Ventilator PEEP 7 [facility] - Respiratory [facility] system Hospital Pressure 12 [facility] - support [facility] setting Hospital Ventilator Respiratory 16 [facility] - rate [facility] Hospital Service [address]327 [facility] - comment [facility] ID Date Data Source [id number] 11/19/2018 11:33:27 AM EDT [facility] - [facility] ID Progress Note11/19/2018Subjective:Patie nt with MR,schizophrenia,non verbal.Unable to provide any history.Afebrile but tachyca rdic, he is S/p peg placement.Wbc up trending to 25K,Objective:Vitals:Patient Vitals f or the past 24 hrs: BP Temp Pulse Resp [id number]/19/18 0746 (!) 135/97 98 F (36.7 C) (!) 115 18 95 %11/19/18 0428 (!) 144/92 96.9 F (36.1 C) (!) 106 18 90 % 9 1949 126/67 97 F (36.1 C) (!) 105 18 91 %11/18/18 1505 126/83 97.8 F (36.6 C) 63 20 98 %Tmax: Temp (24hrs), Av.4 F (36.3 C), Min:96.9 F (36.1 C), Max:98 F(36.7 C)Physical Exam:General: Awake non verbal cooperative, no distressEyes: Co njunctivae/corneas clear. PERRLNeck: Supple, symmetrical, trachea midline, no adenopa thyLungs: Bilateral breath sounds with basal crackles..Heart: Regular rate and rhythm, S1, S2 normalAbdomen: Soft, non-tender. Bowel sounds normal. Peg+Main k: No CVA tenderness.Extremities: No cyanosis or edema.Pulses: 2+ and symmetr ic all extremities.Skin: Skin color, texture, turgor normal. No rashes or lesionsLymph nodes: Cervical, supraclavicular, and axillary nodes normal.Current Facility-A dministered MedicationsMedication Dose Route Frequency potassium chloride 10 mEq in 100 ml IVPB 10 mEq IntraVENous Q1H acetaminophen (OFIRMEV) infusion 1,000 m g 1,000 mg IntraVENous Q6H LORazepam (ATIVAN) injection 0.5 mg 0.5 mg IntraV ENous QHS predniSONE (DELTASONE) tablet 10 mg 10 mg Oral DAILY WITH BREAKFAST [ST ART ON 11/22/2018] predniSONE (DELTASONE) tablet 5 mg 5 mg Oral DAILY WITHBREAKFA ST piperacillin-tazobactam (ZOSYN) 3.375 g in 0.9% sodium chloride (MBP/ADV) 100mL MBP 3.375 g IntraVENous Q8H HYDROmorphone (DILAUDID) syringe 0.5 mg 0.5 mg IntraV ENous Q6H PRN albuterol-ipratropium (DUO-NEB) 2.5 MG-0.5 MG/3 ML 3 mL Nebul ization Q6HWA RT valproate (DEPACON) 250 mg in 0.9% sodium chloride 50 mL IVPB 250 mgIntraVENous Q12H 0.9% sodium chloride 1,000 mL with mvi, adult no.4 with vit K 10 mL, [id number] mg, folic acid 1 mg infusion IntraVENous Q24H albuterol-i pratropium (DUO-NEB) 2.5 MG-0.5 MG/3 ML 3 mL Nebulization Q4H PRN cinacalcet (SENSIP AR) tablet 60 mg 60 mg Oral DAILY budesonide (PULMICORT) 500 mcg/2 ml nebu lizer suspension 500 mcg NebulizationBID RTLabs:Recent Labs 72096 606WBC 25.4* 18.9* 9.5HGB 15.3 14.9 14.6PLT 224 207 210BUN 17 11 14CREA 0.47* 0.49* 0.41*SGOT 33 19 18AP 56 44* 47TBILI 1.3* 1.1* 1.0Cultures:Lab Result sComponent Value Date/Time Culture result: NO GROWTH 5 DAYS 11/07/2018 08:10 PM Cultur e result: NO GROWTH 5 DAYS 11/07/2018 08:00 PMRadiology:No results found.Assessment: Sepsis POA Aspiration pneumonia Dysphagia s/p peg placement COPD Plan:1. Continue IV zosyn.2. Add IV vancomycinPantera Gonzalez [id number] AM Name Value Range Interpretation Code Description Data Harriett rce(s) Supporting Document(s ) ID Date Data Source [id number] 11/19/2018 11:18:30 AM EDT [facility] History:Respiratory difficulty.FINDINGS: A frontal portable view of the chest is compared to the prior study of11/07/2016. A large gas-filled structure is noted beneath the left diaphragm, unchanged,likely rep resenting the stomach.The cardiac silhouette is normal in size. There is again noted to be shift ofmediastinal structures to the right. There are some streaky and patchy changesat the right lung base not seen on the prior study and the possibility ofin filtrative change cannot be excluded. A few nonspecific left basilar streaksare note d as well. Prominence of the right hilum is unchanged and may merelybeas a result of the shift of mediastinal structures.IMPRESSION:New patchy opacity at the right lung base may be infiltrative or atelectaticinnature. Few left basilar streaks are noted as well.Otherwise findings similar.Signing date/time: 11/19/2018 11:1 8 AMSigned by: SAMIR RENTERIA Name Value Range Interpretation Code Description Data Harriett rce(s) Supporting Document(s ) ID Date Data Source [id number] 11/19/2018 09:44:01 AM EDT [facility] Progress NotePatient: Evelio Carlin SSN: [id number] of : 1950 Age: 68 y.o. Sex: maleAdmit Date: Days Post-OpProcedure: Procedure(s):GASTROSTOMY TUBE PLACEMENT and Trimmed toe and finger nailsSubjective:Patient lethargic . RR18 Sat 96%does not communicateObjective:Visit VitalsBP (!) 135/97 (BP 1 Location: Rig t arm, BP Patient Position: At rest)Pulse (!) 115Temp 98 F (36.7 C)Resp 18Ht 5' 2" ( 1.575 m)Wt 56 kg (123 lb 6.4 oz)SpO2 95%BMI 22.57 kg/m Temp (24hrs), Av.4 F (36 .3 C), Min:96.9 F (36.1 C), Max:98 F (36.7 C)AfebrilePhysical Exam:ABDOMEN: soft, non-tender. Bowel sounds normal. No masses, no organomegaly, nofindings of guarding. Dressing changed Mild ecchymosisData Review: reviewed Consult ants documentation, Nursing documentation and I &OLab Data Reviewed:CBC w/Diff Recent Labs 11/18/1906WBC 25.4* 18.9* 9.5HGB 15.3 14.9 14.6HCT 43.5 41.9* 41.7*MCV 95.4* 93.9 92.9PLT 224 207 210GRANS PENDING 89* 64L YMPH PENDING 7* 30EOS PENDING 0 --Chemistry Recent Labs 11/18/1906 0 GLU 168* 110* 93NA 140 134* 139K 3.2* 4.2 4.4CL 98 98 103CO2 34* 32 28BUN 17 11 14CREA 0.47* 0.49* 0.41* Recent Labs 11/18/19066CA 10.5* 9.8 9.8PHOS -- -- 2.9ALB 3.1* 2.5* 2.9*TBILI 1.3* 1.1* 1.0AP 56 44* 47SGOT 33 19 18ALT 37 30 30Coagulation No results for input(s): PTP, INR, APTT in the last 72 hours.No lab exists for component: INREXTAssessment:Hospital Problems Nilo uribe Reviewed Codes Class Noted POA COPD (chronic obstructive pulmonary disease) (HCC) ICD-10-CM: J44.9ICD-9-CM: 496 11/08/2018 Unknown Acute respiratory dist ress ICD-10-CM: R06.03ICD-9-CM: 518.82 11/08/2018 Unknown Pneumonia ICD-10-CM: J 18.9ICD-9-CM: 486 11/08/2018 Unknown COPD exacerbation (HCC) ICD-10-CM: J44.1ICD-9 -CM: 491.21 11/08/2018 UnknownPlan/Recommendations/Medical Deci elio Making:WBC elevatedAdvance feeding to 30 ml/HCXR R/o aspirationSupplement KSigned By: Letty Kaye MD November 19, 2018 Name Value Range Interpretation Code Description Data [facility] Supporting Document(s ) ID Date Data Source [id number] 11/19/2018 07:23:03 AM EDT [facility] Bedside and Verbal shift change report g ellynen to Allyson Mar RN (oncomingnurse) by Marni Regalado RN (offgoing nurse). Report included the followinginformation SBAR and Kardex. Name Value Range Interpretation Code Description Data [facility] rce(s) Supporting Document(s ) ID Date Data Source [id number] 11/19/2018 09:42:32 AM EDT [facility] Name Value Range Interpretation Description Data Sup porting Code Source(s) Document(s ) Leukocytes 25.4 4.8-10.6 Above high normal [facility] - [#/volume] in K/uL Community Blood by Hospital Automated count Erythrocytes 4.56 4.70-6.0 Below low normal [facility] - [#/volume] in M/uL 0 [facility] Blood by [facility] Automated count Hemoglobin 15.3 14.0-18. [facility] - [Mass/volume] in g/dL 0 [facility] Hematocrit 43.5 % 42.0-52. [facility] - [Volume 0 Community Fraction] of Hospital Blood by Automated count Erythrocyte mean 95.4 FL 81.0-94. Above high normal [facility] - corpuscular 0 [facility] volume [Entitic Hospital volume] by Automated count Erythrocyte mean 33.6 PG 27.0-35. [facility] - corpuscular 0 [facility] hemoglobin Hospital [Entitic mass] by Automated count Erythrocyte mean 35.2 30.7-37. [facility] - corpuscular g/dL 3 [facility] hemoglobin Hospital concentration [Mass/volume] by Automated count Erythrocyte 14.2 % 11.5-14. Above high normal [facility] - distribution 0 Community width [Ratio] by Hospital Automated count Platelets 224 K/uL 130-400 [facility] - [#/volume] in [facility] Blood by [facility] Automated count Platelet mean 9.9 FL 9.2-11.8 [facility] - volume [Entitic Community volume] in Blood Hospital by Automated count Segmented 87 % 48.0-72. Above high normal [facility] - neutrophils/100 0 Community leukocytes in Hospital Blood Lymphocytes/100 10 % 18.0-40. Below low normal [facility] - leukocytes in 0 [facility] Monocytes/100 3 % 2.0-12.0 [facility] - leukocytes in [facility] Eosinophils/100 0 % 0.0-7.0 [facility] - leukocytes in [facility] Basophils/100 0 % 0.0-3.0 [facility] - leukocytes in [facility] Erythrocyte [facility] - morphology Community finding Hospital [Identifier] in Blood Platelet [facility] - adequacy Community [Presence] in Hospital Blood by Light microscopy Differential [facility] - cell count [facility] method Blood [facility] Segmented 21.9 1.5-6.6 Above high normal [facility] - neutrophils K/UL Community [#/volume] in Hospital Blood Lymphocytes 2.6 K/UL 1.5-3.5 [facility] - [#/volume] in [facility] Monocytes 0.8 K/UL 0.0-1.0 [facility] - [#/volume] in [facility] Blood Hospital Eosinophils 0.0 K/UL 0.0-0.7 [facility] - [#/volume] in [facility] Blood Hospital Basophils 0.0 K/UL 0.0-0.1 [facility] - [#/volume] in [facility] Blood Hospital ID Date Data Source [id number] 11/19/2018 08:16:13 AM EDT [facility] Name Value Range Interpretation Description Data Sup porting Code Source(s) Document(s ) Sodium 140 136-145 [facility] - [Moles/volume mmol/L Community ] in Serum or Hospital Plasma Potassium 3.2 3.5-5.1 Below low normal [facility] - [Moles/volume mmol/L Community ] in Serum or Hospital Plasma RESULTS CONFIRMED Chloride [Moles/volume] in 98 mmol/L 98-107 [facility] Serum or Plasma Hospital Carbon dioxide, total 34 mmol/L 21-32 Above high [facility] - Community [Moles/volume] in Serum or normal Hos pital Plasma Anion gap in Serum or 11 mmol/L 10-20 [facility] - [facility] Plasma Hospital Glucose [Mass/volume] in 168 mg/dL 74-106 Above high [facility] Serum or Plasma normal Hospital Urea nitrogen 17 mg/dL 7-18 [facility] - Communit y [Mass/volume] in Serum or Hosp ital Plasma Creatinine [Mass/volume] 0.47 mg/dL 0.70-1.30 Below low normal [facility] - Community in Serum or Plasma Hospital Glomerular filtration >60 [facility] rate/1.73 sq M predicted Hospi krystian among blacks [Volume Rate/Area] in Serum or Plasma by Creatinine-based formula (MDRD) Glomerular filtration >60 [facility] - [facility] rate/1.73 sq M predicted Hospi krystian among non-blacks [Volume Rate/Area] in Serum or Plasma by Creatinine-based formula (MDRD) Calcium [Mass/volume] in 10.5 mg/dL 8.5-10.1 Above high [facility] Serum or Plasma normal Hospital Bilirubin.total 1.3 mg/dL 0.2-1.0 Above high [facility] Commu nity [Mass/volume] in Serum or normal Hosp ital Plasma Alanine aminotransferase 37 U/L 13-61 [facility] - Community [Enzymatic Hospital activity/volume] in Serum or Plasma Aspartate aminotransferase 33 U/L 15-37 [facility] - Community [Enzymatic Hospital activity/volume] in Serum or Plasma by With P-5'-P Alkaline phosphatase 56 U/L 45-117 [facility] - C ommunity [Enzymatic Hospital activity/volume] in Serum or Plasma Protein [Mass/volume] in 6.4 g/dL [facility].4[facility] Plasma Hospital Albumin [Mass/volume] in 3.1 g/dL 3.5-4.7 Below low normal [facility] Serum or Plasma by Hospital Bromocresol purple (BCP) dye binding method Globulin [Mass/volume] in 3.3 g/dL 1.7-4.7 [facility] Serum by calculation Hospital Albumin/Globulin [Mass 0.9 0.7-2.8 [facility] Ratio] in Serum or Plasma Hosp ital ID Date Data Source [id number] 11/19/2018 08:10:37 AM EDT [facility] Name Value Range Interpretation Description Data Sup porting Code Source(s) Document(s ) Magnesium 1.7 mg/dL 1.6-2.6 [facility] - [Mass/volume] Community in Serum or Hospital Plasma ID Date Data Source [id number] 11/18/2018 08:42:00 PM EDT [facility] Problem: Pressure Injury - Risk ofGoal: *Prevention of pressure injuryDescriptionDocument Butch Scale a nd appropriate interventions in the flowsheet.Outcome: Progressing Towards G oalNote:Pressure Injury Interventions:Sensory Interventions: Assess changes in LOCMois ture Interventions: Absorbent underpadsActivity Interventions: Assess need for specialty bedMobility Interventions: Pressure redistribution bed/mattress (be d type)Nutrition Interventions: Document food/fluid/supplement intakeFriction and Shear Interventions: Apply protective barrier, creams andemollients, Lift shee tProblem: Gas Exchange - ImpairedGoal: *Absence of hypoxiaOutcome: Progressing Towards Goal Name Value Range Interpretation Code Description Data Harriett rce(s) Supporting Document(s ) ID Date Data Source [id number] 11/18/2018 07:17:34 PM EDT [facility] Bedside and Verbal shift change report carol pham to Marni Regalado RN (oncomingnurse) by Yuki Ohara RN (offgoing nurse) . Report included the following information SBAR,Intake/Output, MAR, Recent Results. Name Value Range Interpretation Code Description Data Harriett rce(s) Supporting Document(s ) ID Date Data Source [id number] 11/18/2018 06:38:20 PM EDT [facility] ID Progress Note11/18/2018Subjective:Patie nt with MR,schizophrenia,non verbal.Unable to provide any history.AfebrileS/p peg plac ement.Wbc elevated to 18,900Objective:Vitals:Patient Vitals fo r the past 24 hrs: BP Temp Pulse Resp [id number]/18/18 0723 124/71 97.8 F (36.6 C) 63 18 98 %11/18/18 0417 113/64 97.7 F (36.5 C) (!) 58 18 95 %11/17/18 2035 12 9 97.4 F (36.3 C) 89 18 93 %Tmax: Temp (24hrs), Av.6 F (36.4 C), Min:97.4 F (36.3 C), Max:97.8 F(36.6 C)Physical Exam:General: Awake non verbal cooperat britni, no distressEyes: Conjunctivae/corneas clear. PERRLNeck: Supple, symmetrical, t rachea midline, no adenopathyLungs: Bilateral breath sounds with basal crack les..Heart: Regular rate and rhythm, S1, S2 normalAbdomen: Soft, non-tender. Bowel sounds normal. Peg+Back: No CVA tenderness.Extremities: No cyanosis or e yana.Pulses: 2+ and symmetric all extremities.Skin: Skin color, texture, t urgor normal. No rashes or lesionsLymph nodes: Cervical, supraclavicular, and ax illary nodes normal.Current Facility-Administered MedicationsMedicat ion Dose Route Frequency acetaminophen (OFIRMEV) infusion 1,000 mg 1,000 mg In traVENous Q6H LORazepam (ATIVAN) injection 0.5 mg 0.5 mg IntraVENous QHS [START O N 11/19/2018] predniSONE (DELTASONE) tablet 10 mg 10 mg Oral DAILY WITHBREAKFAST [STA RT ON 11/22/2018] predniSONE (DELTASONE) tablet 5 mg 5 mg Oral DAILY WITHBREAKFA ST HYDROmorphone (DILAUDID) syringe 0.5 mg 0.5 mg IntraVENous Q6H PRN albuterol-ip ratropium (DUO-NEB) 2.5 MG-0.5 MG/3 ML 3 mL Nebulization Q6HWA RT valproate (DEPACO N) 250 mg in 0.9% sodium chloride 50 mL IVPB 250 mgIntraVENous Q12H 0.9% sodium chlo ride 1,000 mL with mvi, adult no.4 with vit K 10 mL, mg, folic acid 1 mg i nfusion IntraVENous Q24H albuterol-ipratropium (DUO-NEB) 2.5 MG-0 .5 MG/3 ML 3 mL Nebulization Q4H PRN cinacalcet (SENSIPAR) tablet 60 mg 60 m g Oral DAILY budesonide (PULMICORT) 500 mcg/2 ml nebulizer suspension 500 mcg N ebulizationBID RTLabs:Recent Labs 11/17/1905WB C 18.9* 9.5 10.2HGB 14.9 14.6 15.6PLT 207 210 249BUN 11 14 13CREA 0.49* 0.41* 0.51*SGO T 19 18 20AP 44* 47 48TBILI 1.1* 1.0 1.0Cultures:Lab ResultsComponent Value D ate/Time Culture result: NO GROWTH 5 DAYS 11/07/2018 08:10 PM Culture result: NO G ROWTH 5 DAYS 11/07/2018 08:00 PMRadiology:No results found.Assessment: Sepsis POA A spiration pneumonia Dysphagia s/p peg placement COPD Plan:1. IV zosyn..Pantera Beauchamp 20186:06 PM Name Value Range Interpretation Code Description Data Harriett rce(s) Supporting Document(s ) ID Date Data Source [id number] 11/18/2018 04:12:51 PM EDT [facility] Faxed YUAN to [place], informed liais on anticipated discharge Saturday perMD. Name Value Range Interpretation Code Description Data Harriett rce(s) Supporting Document(s ) ID Date Data Source [id number] 11/18/2018 02:06:15 PM EDT [facility] YUAN Completed. Name Value Range Interpretation Code Description Data [facility] rce(s) Supporting Document(s ) ID Date Data Source [id number] 11/18/2018 01:28:40 PM EDT [facility] PULMONARY/ CCM- Consult NotePatient: Ivelisse Carlin Sex: male DOA: 11/07/2018Date of : 1 Age: 68 y.o. LOS: LOS: 10 daysHPI:kassie Carlin is a 68 y.o. male who has been seen for resp failure.7:31 PM: Evelio Carlin is a 68 y.o. male with h/o COPD, GERD,hyperparathyroidism, mental retarda tion, Pneumonia, pulmonary embolism, andschizophrenia who presents to the ED via EMS for shortness of breath andwheezing. Per triage note patient was given Duo-Ne b and Solu-Medrol 40 mg IM atfacility. Seen earlier today,confused,breathing better. 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 Authorizing Providermultivi tamin (ONE A DAY) tablet Take 1 Tab by mouth daily. Yes Provider,Historicalclorazep ate (TRANXENE) 3.75 mg tablet Take by mouth nightly. Yes Provider,Historicalalbute rol-ipratropium (DUO-NEB) 2.5 mg-0.5 mg/3 ml nebu 3 mL by Nebulizationroute every six (6) hours as needed. Yes Provider, HistoricallamoTRIgine (LAMICTAL) 25 mg t ablet Take 50 mg by mouth two (2) times a day.Yes Provider, Historicalcinacalcet ( SENSIPAR) 30 mg tablet Take 60 mg by mouth daily. Yes Provider,Edievalproat e (DEPAKENE) 250 mg/5 mL syrup Take 750 mg by mouth two (2) times a day.Provider, Jazmine Thao Known AllergiesHistory reviewed. No pertinent surgical history.History revie wed. No pertinent family history.Social HistorySocioeconomic History Marital st atus: SINGLE Spouse name: Not on file Number of children: Not on file Years o f education: Not on file Highest education level: Not on fileTobacco Use Smoking s tatus: Never Smoker Smokeless tobacco: Never UsedSubstance and Sexual Activity Alcoh ol use: No Drug use: NoReview of SystemsPertinent items are noted in the History of Present Illness.Physical Exam:Current medications:Current Facilit y-Administered Medications: HYDROmorphone (DILAUDID) syringe 0.5 mg, 0.5 mg, Intra VENous, Q6H PRN,Letty Kaye MD LORazepam (ATIVAN) injection 0.5 mg, 0.5 mg, IntraVENous, QHS, Letty Kaye MD, 0.5 mg at 11/17/18 2231 albuterol-ipra tropium (DUO-NEB) 2.5 MG-0.5 MG/3 ML, 3 mL, Nebulization, [id number], Letty Kaye MD, 3 mL at 11/18/18 0757 valproate (DEPACON) 250 mg in 0.9% sodium chloride 50 mL IVPB, 250 mg,IntraVENous, Q12H, Letty Kaye MD, Last Rate: 50 mL/hr at 11/18/18 0858,250 mg at 11/18/18 0858 methylPREDNISolone (PF) (SOLU-MEDROL) in jection 20 mg, 20 mg, IntraVENous,Q12H, Letty Kaye MD, 20 mg at 11/18/18 0 900 0.9% sodium chloride 1,000 mL with mvi, adult no.4 with vit K 10 mL, mg, folic acid 1 mg infusion, , IntraVENous, Q24H, Letty Kaye MD, LastRate: 100 mL/hr at 11/17/18 1802 dextrose 5 % - 0.45% NaCl infusion, 50 mL/hr, IntraVENo us, CONTINUOUS,Letty Kaye MD, Last Rate: 50 mL/hr at 11/17/18 0856, 50 mL/h r at albuterol-ipratropium (DUO-NEB) 2.5 MG-0.5 MG/3 ML, 3 mL, Nebu lization, Q4HPRN, Letty Kaye MD cinacalcet (SENSIPAR) tablet 60 mg, 60 m g, Oral, DAILY, Letty Kaye MD,60 mg at 11/18/18 0917 budesonide (PULMICORT) 5 00 mcg/2 ml nebulizer suspension, 500 mcg,Nebulization, BID RT, Artemio Kaye MD, 500 mcg at 11/18/18 0757DataVisit VitalsBP 124/71 (BP 1 Location: Left arm , BP Patient Position: At rest)Pulse 63Temp 97.8 F (36.6 C)Resp 18Ht 5' 2" (1.575 m)Wt 56 kg (123 lb 6.4 oz)SpO2 98%BMI 22.57 kg/m Intake and Output:Date 11/17/18 070 0 - 11/18/18 0659 11/18/18 0700 - 11/19/18 0659Shift 7800-3375 1765-4709 24 Hour To krystian 7192-6874 4532-5702 24 Hour TotalINTAKEI.V.(mL/kg/hr) 50(0.1) 50(0) 150 150 Volume (acetaminophen (OFIRMEV) infusion 1,000 mg) 100 100 Volume ( valproate (DEPACON) 250 mg in 0.9% sodium chloride 50 mL IVPB) 50 5050 50NG/GT 200 200 Water Flush Volume (mL) (PEG/Gastrostomy Tube 11/17/18) 100 100 Medication Volume (PEG/Gastrostomy Tube 11/17/18) 100 100Shift Total(mL/kg) 50(0.9) 50(0.9) 350(6.3) 350(6.3)OUTPUTUrine(mL/kg/hr) 600(0.9) 600(0.4) Urine Voided 600 600Emesis/NG output 3 250 253 Emesis 250 250 Outpu t (ml) (PEG/Gastrostomy Tube 11/17/18) 3 3Shift Total(mL/kg) 3(0.1) 850(15.2) 853 (15.2)NET 59 -164 -800 350 350Weight (kg) 56 56 56 56 56 56Pulse OX:SpO2 Readings fro m Last 6 Encounters:11/18/18 98%09/26/15 96%@LASTSAO2(6)@PHYSICAL EXAM:General: Lethargic,responding.Head: Normocephalic, without obvious abnormality, atraumatic. Eyes: Conjunctivae clear, anicteric sclerae. Pupils are equalNose: Nares n ormal. No drainage or sinus tenderness.Throat: Lips, mucosa, and tongue normal. No ThrushNeck: Supple, symmetrical, no adenopathy, thyroid: no n tender no carotid bruit and no JVD.Back: Symmetric, No CVA tenderness.Lungs: Scattered rhonchi,Chest wall: No tenderness or deformity. No Accessory muscle use.He art: Regular rate and rhythm, no murmur, rub or gallop.Abdomen: Soft, non-tende r. Not distended. Bowel sounds normal. No massesExtremities: Extremities normal, a traumatic, No cyanosis. No edema. No clubbingSkin: Texture, turgor normal . No rashes or lesions. Not JaundicedLymph nodes: Cervical, supraclavicular normal. Psych: Good insight. Not depressed. Not anxious or agitated.Neurologic: EOMs int act. No facial asymmetry. No aphasia or slurred speech.Most recent labs:Recent L abs 11/17/1905WBC 18.9* 9.5 10.2HGB 14.9 1 4.6 15.6HCT 41.9* 41.7* 43.4PLT 207 210 249Recent Labs 11/17/1905NA 134* 139 138K 4.2 4.4 4.2CL 98 103 102CO2 32 28 28GLU 110* 93 98BUN 11 14 13CREA 0.49* 0.41* 0.51*CA 9.8 9.8 9.9MG 1.8 1.9 1.9PHOS -- 2.9 2.9ALB 2. 5* 2.9* 3.0*TBILI 1.1* 1.0 1.0SGOT 19 18 20ALT 30 30 31No results for input(s): P H, PCO2, PO2, HCO3, FIO2 in the last 72 hours.ABG:No results for input(s): PH, P CO2, PO2, HCO3, FIO2 in the last 72 hours.Cultures:No results found for: [employer] SLab ResultsComponent Value Date/Time Culture result: NO GROWTH 5 DAYS 11/07/2018 08:1 0 PM Culture result: NO GROWTH 5 DAYS 11/07/2018 08:00 PMImages:Cta Chest W Or W Wo ContResult Date: 11/08/2018Examination: CTA Chest ? PE angiography History: Hypo magdy; rule out pneumoniaversus pulmonary embolism Priors: None Technique: Low-d ose, multiplanar,helical CTA chest was performed with bolus IV injection from lung apices tobases. 3D-reformatted images were obtained and reviewed on a [employer] d viewingworkstation and directly supervised. Contrast: A total of 71 mL of Isovue-370 was administered intravenously for this procedure. Findings: No evidence ofpulmo nary embolism is seen. There is decreased size of the right hemithorax fromchronic scarring and retraction with mediastinal shift left to right.Additional area of c onsolidation is seen in the right lower lobe and suggestssuperimposed pneumonia with subsegmental atelectasis. Subsegmental atelectasisis also noted in the left jorge g base, with pleural parenchymal scarring. Lowlung volumes are seen. No pneumothora x seen. Aorta normal in caliber withoutaneurysm or dissection. Mediastin um no adenopathy. Mediastinal shift is seen inthe left and right as a result of chr onic changes in the right hemithorax.Heart shows no chamber enlargement or pericard ial effusion. No acute fracturesseen in the bony thorax, sternum, manubrium and rib cage. Multiple compressiondeformities are seen in the mid and lower thoracic spine , with superimposedspondyloarthropathy. Cannot exclude acute fracture.Impression : No evidence of pulmonary embolism Right lower lobe pneumoniasuggested. Incidenta l scarring and retraction in the right hemithorax fromremote/chronic inflammato ry disease and/or trauma. Bibasilar subsegmentalatelectasis. Report Electron zohaiby Signed By: Pawel Zafar M.D. -11/08/2018 12:40 AMXr Chest PortResult D ate: 11/07/2018XR CHEST PORT CLINICAL INDICATION PROVIDED:. "sob." COMPAR GARTH:. 09/26/2015.FINDINGS:. The pericardial/cardiac silhouette is enlarg ed in the transversedimension. There is no pulmonary vascular congestion or interst itial edema.Linear density in the left lung base and faint densities in the right mi d tolower lung likely represent atelectasis. There is no lobar consolidation oreffusi on. There is no pneumothorax.IMPRESSION:. Bilateral lower lung atelectasis. No donna dence of consolidation oreffusion.Assessment/PlanActive Problem s: COPD (chronic obstructive pulmonary disease) ([facility]) (11/08/2018) Acute respir atory distress (11/08/2018) Pneumonia (11/08/2018) COPD exacerbation ([facility]) () Acute resp failure combined, pneumonia acute copd exacerbation pe rul ed out.PLAN,Monitoring,Ivabx,Iv steroids taperedbipap prn and at night.NebS/p peg ,feeding started.D/w nursing staff.Pantera Munson 2018The billing code s ubmitted in association with this evaluation also includes thetime to review patient' s prior records, communicate with the physician team,obtain corroborating data , and discuss the risk and benefits of the proposedmanagement plan with the patient and their family >30 minutes. Name Value Range Interpretation Code Description Data Harriett rce(s) Supporting Document(s ) ID Date Data Source [id number] 11/18/2018 08:19:53 AM EDT [facility] Progress NotePatient: Evelio Carlin SSN: [id number] of : 1950 Age: 68 y.o. Sex: maleAdmit Date: Day Post-OpProcedure: Procedure(s):GASTROSTOMY TUBE PLACEMENT and Trimming toe and finger nailsSubjective:Patient has no complaint s.Objective:Visit VitalsBP 124/71 (BP 1 Location: Left arm, BP Patient Position: At rest)Pulse 63Temp 97.8 F (36.6 C)Resp 18Ht 5' 2" (1.575 m)Wt 56 kg (123 lb 6.4 oz)SpO2 98%BMI 22.57 kg/m Temp (24hrs), Av.4 F (36.3 C), Min:96.6 F (35.9 C), Max:97.8 F (36.6 C)Physical Exam:ABDOMEN: soft, non-tender. Bowel so unds normal. No masses, no organomegalyData Review: reviewed I & OLab Data Reviewed :CBC w/Diff Recent Labs 11/16/1906WBC 9.5 10.2HGB 14.6 15.6HCT 41.7* 43.4MCV 92.9 92.5PLT 210 249GRANS 64 74*LYMPH 30 20EOS -- 0Chemistry Recent Labs 11/16/1906GLU 93 98NA 139 138K 4.4 4.2CL 103 102CO2 28 28BUN 1 4 13CREA 0.41* 0.51* Recent Labs 11/16/19065CA 9.8 9.9PHOS 2.9 2.9ALB 2.9* 3.0*TBILI 1.0 1.0AP 47 48SGOT 18 20ALT 30 31Coagulation No results for input(s): PTP, INR, APTT in the last 72 hours.No lab exists for component: INREX TAssessment:Hospital Problems Never Reviewed Codes Class Noted POA COPD (chroni c obstructive pulmonary disease) (HCC) ICD-10-CM: J44.9ICD-9-CM: 496 11/08/2018 Unknown Acute respiratory distress ICD-10-CM: R06.03ICD-9-CM: 518.82 2018 Unknown Pneumonia ICD-10-CM: J18.9ICD-9-CM: 486 11/08/2018 Unknown [place] exacerbation (HCC) ICD-10-CM: J44.1ICD-9-CM: 491.21 11/08/2018 Unknown Plan/Recommendations/Medical Decision Making:Diet Tube feedings ordered, elev ate head of bed, residual check QID, Startingrate 25ml /HGoal per dietary 55m l/hTaper prednisoloneMonitor woundSigned By: Letty Kaye MD November 18, 2018 Name Value Range Interpretation Code Description Data Harriett rce(s) Supporting Document(s ) ID Date Data Source [id number] 11/18/2018 07:55:14 AM EDT [facility] [place], [place] [address]BJLCMXG: EVELIO CARLINMRN: [id number]: 1ACCT#: [id number] DATE: 11/07/2018 OPERATIVE REPORTPROCEDURE DATE: 11/17/2018SURGEON: GABRIELLA Green SISTANT: Nikos Corral MD.PREOPERATIVE DIAGNOSIS: Failure to thrive.POSTOPERAT BRITNI DIAGNOSIS: Failure to thrive.OPERATION: Placement of surgical gastrostomy tube a nd trimming of the toe andfingernails.ANESTHESIA: General endo tracheal, Dr. Edge.OPERATIVE FINDINGS: The stomach was mobilized to the left upper quadrant withminimal tension, and it was attached to the abdominal wall. A #24-F rench Foleywasplaced as a feeding tube.PROCEDURE: After the patient was i nduced under general anesthesia, thepatient'sabdomen was cleaned, painted with ChloraPrep, and draped in the usual sterilefashion. Time-out was called. A Lozano was placed for the procedure and wasremovedafter the procedure. A midlin e incision was made with a scalpel and carrieddownthrough skin and subcutaneous tissue. Hemostasis was achieved with theelectrocautery. Peritoneum was picke d up between two clamps, and the peritonealcavity was entered with the ni ck of the scalpel, and then the incision wasextendedsuperiorly and inferiorly to just right of the umbilicus with theelectrocautery.With a Shea retr actor, the edges of the incision were held, and theomentum waspulled down, and the t ransverse colon was identified, and the stomach was withinreach with a [place] c lamp. In fact, two Ravi's were placed on the anteriorwallof the stomach. The pyl orus was identified and the antrum was utilized for theposition of the gastrost rosina tube. Two pursestring's of 2-0 silk were placed andoncethe sutures were in good p osition, the sutures were not cut, and the needleswereleft intact. Then, an incisi on was made in the left upper quadrant,approximatelytwo fingerbreadths below the left costal margin in the midclavicular line. Plf05-Oeecmc Lozano was placed through the incision and into the abdominal wall andthenthe stomach was br ought into view and an incision was made with theelectrocauterywithin the pursestring' s. The Lozano tube was then placed within the stomach.Theballoon was blown up and was tested prior to using it and 10 mL was placedwithin theballoon. The pursestrin g sutures were tied down and then the needles were usedtotack these sutures to the abd ominal wall. The third and fourth sutures werethenused to additionally tack the st omach to the abdominal wall. The tube wasirrigated.No leak was noted and the t ube was attached to a drainage bag. The balloon wassoftly placed at the insertio n site, and the tube was then anchored to the skinwiththree 3-0 Vicryl sutures. At th is point, the midline incision was closed with arunning 0 PDS suture from both end s of the incision and tied in the middle.Stapleswere used to reapproximate the skin and a Xeroform gauze was placed over thestapleline followed by a drain s ponge around the G tube and tape. An abdominal binderwasplaced over on the pa tient to protect the tube from being handled.The patient tolerated the proced ure well. At the conclusion of the gastrostomytubeplacement, the toes and f ingernails were trimmed, as the patient does not allowanyone tocut the nails, and thi s was an opportunity to have this performed at the requestofthe family. LETTY KAYE, MDDD: #11/17/2018 15:25 :17/EL [email or web address] #: [id number] / [id number] Name Value Range Interpretation Code Description Data Harriett rce(s) Supporting Document(s ) ID Date Data Source [id number] 11/18/2018 08:53:39 AM EDT [facility] Name Value Range Interpretation Description Data Sup porting Code Source(s) Document(s ) Sodium 134 136-145 Below low normal [facility] - [Moles/volume] in mmol/L [facility] Serum or Plasma Hospital Potassium 4.2 3.5-5.1 [facility] - [Moles/volume] in mmol/L [facility] Serum or Plasma Hospital Chloride 98 98-107 [facility] - [Moles/volume] in mmol/L [facility] Serum or Plasma Hospital Carbon dioxide, 32 21-32 [facility] - total mmol/L Community [Moles/volume] in Hospital Serum or Plasma Anion gap in Serum 9 10-20 Below low normal [facility] - or Plasma mmol/L [facility] Hospital Glucose 110 74-106 Above high [facility] - [Mass/volume] in mg/dL normal [facility] Serum or Plasma Hospital Urea nitrogen 11 7-18 [facility] - [Mass/volume] in mg/dL [facility] Serum or Plasma Hospital Creatinine 0.49 0.70-1. Below low normal [facility] - [Mass/volume] in mg/dL 30 [facility] Serum or Plasma Hospital Glomerular >60 [facility] - filtration Community rate/1.73 sq M Hospital predicted among blacks [Volume Rate/Area] in Serum or Plasma by Creatinine-based formula (MDRD) Glomerular >60 [facility] - filtration Community rate/1.73 sq M Hospital predicted among non-blacks [Volume Rate/Area] in Serum or Plasma by Creatinine-based formula (MDRD) Calcium 9.8 8.5-10. [facility] - [Mass/volume] in mg/dL 1 [facility] Serum or Plasma Hospital Bilirubin.total 1.1 0.2-1.0 Above high [facility] - [Mass/volume] in mg/dL normal [facility] Serum or Plasma [facility] Alanine 30 U/L 13-61 [facility] - aminotransferase Community [Enzymatic Hospital activity/volume] in Serum or Plasma Aspartate 19 U/L 15-37 [facility] - aminotransferase Community [Enzymatic Hospital activity/volume] in Serum or Plasma by With P-5'-P Alkaline 44 U/L 45-117 Below low normal [facility] - phosphatase Community [Enzymatic Hospital activity/volume] in Serum or Plasma Protein 5.7 6.4-8.2 Below low normal [facility] - [Mass/volume] in g/dL [facility] Serum or Plasma [facility] Albumin 2.5 3.5-4.7 Below low normal [facility] - [Mass/volume] in g/dL [facility] Serum or Plasma by [facility] Bromocresol purple (BCP) dye binding method Globulin 3.2 1.7-4.7 [facility] - [Mass/volume] in g/dL [facility] Serum by [facility] calculation Albumin/Globulin 0.8 0.7-2.8 [facility] - [Mass Ratio] in [facility] Serum or Plasma Hospital ID Date Data Source [id number] 11/18/2018 08:53:39 AM EDT [facility] Name Value Range Interpretation Description Data Sup porting Code Source(s) Document(s ) Magnesium 1.8 mg/dL 1.6-2.6 [facility] - [Mass/volume] Community in Serum or [facility] Plasma ID Date Data Source [id number] 11/18/2018 08:37:51 AM EDT [facility] Name Value Range Interpretation Description Data Sup porting Code Source(s) Document(s ) Leukocytes 18.9 4.8-10.6 Above high normal [facility] - [#/volume] in K/uL [facility] Blood by [facility] Automated count Erythrocytes 4.46 4.70-6.0 Below low normal [facility] - [#/volume] in M/uL 0 [facility] Blood by Hospital Automated count Hemoglobin 14.9 14.0-18. [facility] - [Mass/volume] in g/dL 0 [facility] Blood [facility] Hematocrit 41.9 % 42.0-52. Below low normal [facility] - [Volume 0 Community Fraction] of Hospital Blood by Automated count Erythrocyte mean 93.9 FL 81.0-94. [facility] - corpuscular 0 Community volume [Entitic Hospital volume] by Automated count Erythrocyte mean 33.4 PG 27.0-35. [facility] - corpuscular 0 [facility] hemoglobin Hospital [Entitic mass] by Automated count Erythrocyte mean 35.6 30.7-37. [facility] - corpuscular g/dL 3 [facility] concentration [Mass/volume] by Automated count Erythrocyte 13.9 % 11.5-14. [facility] - distribution 0 Community width [Ratio] by Hospital Automated count Platelets 207 K/uL 130-400 [facility] - [#/volume] in [facility] Blood by Hospital Automated count Platelet mean 9.5 FL 9.2-11.8 [facility] - volume [Entitic Community volume] in [facility] Hospital by Automated count Segmented 89 % 48.0-72. Above high normal [facility] - neutrophils/100 0 Community leukocytes in Hospital Blood Lymphocytes/100 7 % 18.0-40. Below low normal [facility] - leukocytes in 0 [facility] Monocytes/100 4 % 2.0-12.0 [facility] - leukocytes in [facility] Eosinophils/100 0 % 0.0-7.0 [facility] - leukocytes in [facility] Blood [facility] Basophils/100 0 % 0.0-3.0 [facility] - leukocytes in [facility] Segmented 16.7 1.5-6.6 Above high normal [facility] - neutrophils K/UL Community [#/volume] in Hospital Blood Lymphocytes 1.3 K/UL 1.5-3.5 Below low normal [facility] - [#/volume] in [facility] Monocytes 0.8 K/UL 0.0-1.0 [facility] - [#/volume] in [facility] Eosinophils 0.0 K/UL 0.0-0.7 [facility] - [#/volume] in [facility] Basophils 0.0 K/UL 0.0-0.1 [facility] - [#/volume] in [facility] Differential [facility] - cell count [facility] Immature 0 % 0.0-2.0 [facility] - granulocytes/100 Community leukocytes in Hospital Blood by Automated count ID Date Data Source [id number] 11/18/2018 07:32:26 AM EDT [facility] Placed a call and spoke to Dr. Reinier re garding mittens order. Name Value Range Interpretation Code Description Data [facility] rce(s) Supporting Document(s ) ID Date Data Source [id number] 11/18/2018 06:55:20 AM EDT [facility] Bedside and Verbal shift change report carol pham to Yuki Ohara RN (oncomingnurse) by Marni Regalado RN (offgoing nurse). Report included the followinginformation SBAR and Kardex. Name Value Range Interpretation Code Description Data [facility] rce(s) Supporting Document(s ) ID Date Data Source [id number] 11/17/2018 07:13:31 PM EDT [facility] Bedside and Verbal shift change report carol ivten to Marni Regalado RN (oncomingnurse) by Yuki Ohara RN (offgoing mason se). Report included the following information SBAR,Intake/Output, MAR, Rec ent Results and Cardiac Rhythm NSR. Name Value Range Interpretation Code Description Data [facility] Supporting Document(s ) ID Date Data Source [id number] 11/17/2018 05:25:09 PM EDT [facility] ID Progress Note11/17/2018Subjective:Patie nt with MR,schizophrenia,non verbal.Unable to provide any history.AfebrileS/p peg plac ement.Objective:Vitals:Patient Vitals for the past 24 hrs: BP Temp Pulse Resp VwA527/0 08/31 1605 103/47 - 83 16 95 %11/17/18 1550 118/63 97.5 F (36.4 C) 83 16 96 %11/17 1535 109/62 - 76 14 97 %11/17/18 1520 111/54 - 75 18 95 %11/17/18 1505 115/58 - 71 15 95 %11/17/18 1451 117/60 - 68 15 100 %11/17/18 1450 117/60 97.2 F (36.2 C) 67 16 99 %11/17/18 1133 150/70 96.6 F (35.9 C) (!) 49 18 95 %11/17/18 0728 164/76 97 F (36.1 C) (!) 58 20 -11/17/18 0358 142/90 96.9 F (36.1 C) 87 18 94 %11/16/18 201 0 122/64 96.9 F (36.1 C) 82 18 96 %Tmax: Temp (24hrs), Av F (36.1 C), Min:9 6.6 F (35.9 C), Max:97.5 F(36.4 C)Physical Exam:General: Sedated, coope rative, no distressEyes: Conjunctivae/corneas clear. PERRLNeck: S upple, symmetrical, trachea midline, no adenopathyLungs: Bilateral breath soun ds with basal crackles..Heart: Regular rate and rhythm, S1, S2 normalAbdomen: Soft , non-tender. Bowel sounds normal. Peg+Back: No CVA tenderness.Extremities: No cyano sis or edema.Pulses: 2+ and symmetric all extremities.Skin: Skin color, texture, t urgor normal. No rashes or lesionsLymph nodes: Cervical, supraclavicular, and ax illary nodes normal.Current Facility-Administered MedicationsMedicat ion Dose Route Frequency acetaminophen (OFIRMEV) infusion 1,000 mg 1,000 mg In traVENous Q6H HYDROmorphone (DILAUDID) syringe 0.5 mg 0.5 mg IntraVENous Q6H P RN LORazepam (ATIVAN) injection 0.5 mg 0.5 mg IntraVENous QHS albuterol-ipratropiu m (DUO-NEB) 2.5 MG-0.5 MG/3 ML 3 mL Nebulization Q6HWA RT valproate (DEPACO N) 250 mg in 0.9% sodium chloride 50 mL IVPB 250 mgIntraVENous Q12H methylPREDNISolo ne (PF) (SOLU-MEDROL) injection 20 mg 20 mg IntraVENous Q12H 0.9% sodium chloride 1 ,000 mL with mvi, adult no.4 with vit K 10 mL, soojeglk151 mg, folic acid 1 mg infu elio IntraVENous Q24H dextrose 5 % - 0.45% NaCl infusion 50 mL/hr IntraVENous CONT INUOUS albuterol-ipratropium (DUO-NEB) 2.5 MG-0.5 MG/3 ML 3 mL Nebulization Q4H TN N cinacalcet (SENSIPAR) tablet 60 mg 60 mg Oral DAILY budesonide (PULMICORT) 500 m cg/2 ml nebulizer suspension 500 mcg NebulizationBID RTLabs:Recent Labs 11/16/1906WBC 9.5 10.2 10.4HGB 14.6 15.6 15.2PLT 210 249 2 33BUN 14 13 15CREA 0.41* 0.51* 0.42*SGOT 18 20 17AP 47 48 44*TBILI 1.0 1.0 0.8Cultur es:Lab ResultsComponent Value Date/Time Culture result: NO GROWTH 5 DAYS 019 08:10 PM Culture result: NO GROWTH 5 DAYS 11/07/2018 08:00 PMRadiology:No results found.Assessment: Sepsis POA Nosocomial PNA COPD Plan:1. Continue current treatment .Pantera Beauchamp 20185:19 PM Name Value Range Interpretation Code Description Data Harriett e(s) Supporting Document(s ) ID Date Data Source [id number] 11/17/2018 05:00:40 PM EDT [facility] TRANSFER - IN REPORT:Verbal report recei nathaly from Laz Easton RN(name) on Evelio Carlinbeing received from PAC U(unit) for routine progression of careReport consisted of patient's Situation, Backgr ound, Assessment andRecommendations(SBAR).Information fro m the following report(s) OR Summary, Intake/Output and MAR wasreviewed with t he receiving nurse.Opportunity for questions and clarification was provided.Assessmen t completed upon patient's arrival to unit and care assumed. Name Value Range Interpretation Code Description Data Harriett rce(s) Supporting Document(s ) ID Date Data Source [id number] 11/17/2018 04:16:28 PM EDT [facility] TRANSFER - OUT REPORT:Verbal report give n to Yuki Sanon RN(name) on Evelio Carlin beingtransferred to 343B(unit ) for routine progression of careReport consisted of patient's Situation, Backgr ound, Assessment andRecommendations(SBAR).Information fro m the following report(s) OR Summary, Procedure Summary,Intake/Output and MAR was reviewed with the receiving nurse.Opportunity for questions and clar ification was provided.Patient transported with: O2 @ 3 litersTech Name Value Range Interpretation Code Description Data [facility] rce(s) Supporting Document(s ) ID Date Data Source [id number] 11/17/2018 03:27:50 PM EDT [facility] Pt transferred to OR for feeding tube pl acement in early afternoon. VS stable.Wrist restraints in place. Sister to accompany pt. ID on left ankle still intactand transport made aware. Name Value Range Interpretation Code Description Data [facility] rce(s) Supporting Document(s ) ID Date Data Source [id number] 11/17/2018 03:01:09 PM EDT [facility] BRIEF OPERATIVE NOTEDate of Procedure: Preoperative Diagnosis: failure to thrivePostoperative Diagnosis: failure t o thriveProcedure(s):GASTROSTOMY TUBE PLACEMENT and cut toe and finger nailsSu rgeon(s) and Role: * Letty Kaye MD - Primary * Nikos Corral MD - Assist ingSurgical Assignment Desk Assistant: Dr Purcellurgical Staff:Circ-1: Katiuska Louis, RNScrub Tech-1: Luís ZamoraEvent Time In Time OutIncision Start 11/17/2018 1330Incisio n Close 11/17/2018 1435Anesthesia: GeneralEstimated Blood Loss: minimalSpec imens: * No specimens in log *Findings: stomach mobilized with minimal tensionCo mplications: noneImplants: * No implants in log * Name Value Range Interpretation Code Description Data [facility] rce(s) Supporting Document(s ) ID Date Data Source [id number] 11/17/2018 02:27:53 PM EDT [facility] Problem: Nutrition DeficitGoal: *Optimiz e nutritional statusDescriptionConsumption of >50% meals/snacks/supplements daily wit hin 3-7 daysOutcome: Not Progressing Towards GoalOnce ready to start EN: Suggest at O smolite 1.5 at 25 mL/hr progressing towardgoal rate of 55 mL/hr (1980 kcal, 83 gm pro, 269 gm CHO, 65 gm fat, 1006 mL freewater), with 125 mL free water flush q 3 hr once IVF d/c'd Name Value Range Interpretation Code Description Data Harriett rce(s) Supporting Document(s ) ID Date Data Source [id number] 11/17/2018 02:19:53 PM EDT [facility] NUTRITIONFollow Up NoteSubjective: Pt fo r surgical G (or J) tube placement this afternoon.Nutrition Rx: NPOLabs: 11/17 Cre at 0.41Medications reviewed. Receiving 1000 mL NS with MVI, Vit K, Thiamine and Foli cAcid, D5W 1/2 NS at 50 mL/hr, Solu-Medrol.Skin: butch score 11GI: Dys phagia - for feeding tube placement (g vs j tube, depending on theanatomy) in the OR todayWeight: 56 kg (down 3.1 kg since initial assessment- NPO)Nutrition Diagno sis: remains the same (Increased protein and energy needs)Once ready to start EN: Sug gest at Osmolite 1.5 at 25 mL/hr progressing towardgoal rate of 55 mL/hr (1980 kcal, 83 gm pro, 269 gm CHO, 65 gm fat, 1006 mL freewater), with 125 mL free water flush q 3 hr once IVF d/c'dWill continue to monitor EN.Discharge Planning: Pending c linical courseAlexa R Favorito, RD Name Value Range Interpretation Code Description Data [facility] rce(s) Supporting Document(s ) ID Date Data Source [id number] 11/17/2018 01:54:42 PM EDT [facility] Upon receiving the patient in the [employer] area we had to search for the patientswrist band. It was on the patients right wri st under the mitts that wereapplied. Once I fond the ID it was stuck to the patients wrist. Noted underthe wrist band he was bruised and had ecchymose. I took off t he mitts under thedirection of Dr. Kaye. Name Value Range Interpretation Code Description Data Harriett rce(s) Supporting Document(s ) ID Date Data Source [id number] 11/17/2018 01:54:36 PM EDT [facility] Progress NoteMID-COUNTY PULMONARY ASSOC. ,P.C.Krystian Monae MD., F.C.C.P.Stella Hamilton MD., F.C.C.P. [address] [place] [address] [place], [place] [id number] [phone]: Evelio Carlin Sex: male DOA: 11/07/2018Da te of : 1950 Age: 68 y.o. LOS: LOS: 9 daysSubjective:Mr. Gayla beltran is a 68 y.o. year old male who is being seen for PNEUMONIA ,ASPIRATIONS , C OPD, AND SEVERE MENTAL REATRDATION , PATIENT IS FORSURGICAL GT . INSERTION .Objective:Vital Signs:Patient Vitals for the past 24 hrs: BP Temp Pulse Resp BbK435/0 08/31 1133 150/70 96.6 F (35.9 C) (!) 49 18 95 %11/17/18 0728 164/76 97 F (36.1 C) (!) 58 20 -11/17/18 0358 142/90 96.9 F (36.1 C) 87 18 94 %11/16/182009 122/64 96.9 F (36.1 C) 82 18 96 %11/16/18 1547 119/59 98.3 F (36.8 C) 69 18 96 %Pulse OX:SpO2 Readings from Last 6 Encounters:11/17/18 95%09/26/15 96%@LAST SAO2(6)@Physical Exam:NON VERBAL , COMFORTABLE General: Alert, coop erative, no distress, appears stated age. Head: Normocephalic, without ob vious abnormality, atraumatic. Eyes: Conjunctivae/corneas clear. PERR L, EOMs intact. Nose: Nares normal. No drainage or sinus tenderness Throat: Lips, mucosa, and tongue normal Neck: Supple, symmet rical, trachea midline, no adenopathy,thyroid: no enlargem ent/tenderness/nodules, no carotid bruit and no JVD. Lungs: AIR EXCHANGE IS BETTER IN BOTH LUNGS , WHEEZINGSUBSIDED to auscultation bilate rally. Chest Wall: No tenderness or deformity. Heart: Regular ra te and rhythm, S1, S2 normal, no murmur, click,rub or gallop. Abdomen: Soft , non-tender. Bowel sounds normal. No masses, No organomegaly. Extremities: Extrem ities normal, atraumatic, no cyanosis or edema. Pulses: 4+ bilaterally. Skin: Skin color, texture, turgor normal. No rashes or lesions. Ne urologic: CNII-XII intact. No focal motor or sensory deficit.Intake and Output:Las t three shifts: 11/15 1901 - 11/17 0700In: 2750 [I.V.:2750]Out: 300 [Urine:300]Lab Results:Recent Results (from the past 24 hour(s))MAGNESIUM Collection Time: 11/17 6:06 AMResult Value Ref Range Magnesium 1.9 1.6 - 2.6 mg/dLPHOSPHORUS Collection Time: 11/17/18 6:06 AMResult Value Ref Range Phosphorus 2.9 2.5 - 4.9 mg/dLCBC WITH AUTOMATED DIFF Collection Time: 11/17/18 6:06 AMResult Value Ref Range WBC 9.5 4 .8 - 10.6 K/uL RBC 4.49 (L) 4.70 - 6.00 M/uL HGB 14.6 14.0 - 18.0 g/dL HCT 41.7 (L) 4 2.0 - 52.0 % MCV 92.9 81.0 - 94.0 FL MCH 32.5 27.0 - 35.0 PG MCHC 35.0 30.7 - 37.3 g/d L RDW 13.8 11.5 - 14.0 % PLATELET 210 130 - 400 K/uL MPV 9.7 9.2 - 11.8 FL NEUTROPHI LS 64 48 - 72 % LYMPHOCYTES 30 18 - 40 % MONOCYTES 6 2 - 12 % RBC COMMENTS NORMOC YTIC, NORMOCHROMIC PLATELET ESTIMATE ADEQUATE DF MANUALMETABOLIC PANEL, COMPREHENSIVE Collection Time: 11/17/18 6:06 AMResult Value Ref Range Sodium 139 136 - 145 mmo l/L Potassium 4.4 3.5 - 5.1 mmol/L Chloride 103 98 - 107 mmol/L CO2 28 21 - 32 mmol/ L Anion gap 12 10 - 20 mmol/L Glucose 93 74 - 106 mg/dL BUN 14 7 - 18 mg/dL Creatinine 0.41 (L) 0.70 - 1.30 mg/dL GFR est AA >60 >60 ml/min/1.73m2 GFR est non-AA >60 >60 ml/min/1.73m2 Calcium 9.8 8.5 - 10.1 mg/dL Bilirubin, total 1.0 0.2 - 1.0 mg/dL ALT (SGPT) 30 13 - 61 U/L AST (SGOT) 18 15 - 37 U/L Alk. phosphatase 47 45 - 117 U/L Pro tein, total 6.1 (L) 6.4 - 8.2 g/dL Albumin 2.9 (L) 3.5 - 4.7 g/dL Globulin 3.2 1.7 - 4.7 g/dL A-G Ratio 0.9 0.7 - 2.8ABG:No results for input(s): PH, PCO2, PO2, HCO 3, FIO2 in the last 72 hours.Recent Glucose Results:Lab ResultsComponent Value Date/ Time GLU 93 11/17/2018 06:06 AM@LABAPCYTOINTERPRETATION@[facility] Results Procedure Component Value Units Date/Time CULTURE, BLOOD [[id number]] Col lected: 11/07/181999 Order Status: Completed Specimen: Blood Updated: 640 Special Requests: NO SPECIAL REQUESTS Culture result: NO GROWTH 5 DA YS CULTURE, BLOOD [[id number]] Collected: 11/07/182009 Order Status: Completed S pecimen: Blood Updated: 11/12/18640 Special Requests: NO SPECIAL REQUESTS C ulture result: NO GROWTH 5 DAYS STREP PNEUMO AG, URINE [[id number]] Collected: 0700 Order Status: Completed Specimen: Other from Urine, random Updated: 11/09 Strep pneumo Ag, urine NEGATIVE Comment:Presumptive negative suggests no current or recent pneumococcal infection.Infection due to S.pneumonia c annot beruled out since the antigen presentin the sample may be below the detectionlim it of the test. This test is notintended as a substitute for gram stainand bacterial c ulture Method IMMUNOCHROMATOGRAPHIC MEMBRANE ASSAY LEGIONELLA PNEUMOPHILA AG , URINE [[id number]] Collected: 11/08/18 1145 Order Status: Completed Specimen: Urin e Updated: 11/09/18 1048 Legionella Ag, urine NEGATIVE Comment:PRESUMPTIVE NEGA TIVE forL.pneumophila Serogroup 1Antigen in urine,suggestingno recent or current inf ection.Infection due to Legionellacannot be ruled out since otherserogroups and spec ies may causedisease,antigen may not bepresent in urine in earlyinfection, an d the level ofantigen present in the urinemay be below the detectionlimit of the test. Method IMMUNOCHROMATOGRAPHIC MEMBRANE ASSAY CULTURE, URINE [[id number]] Collect ed: 11/07/18 193 Order Status: Canceled Specimen: Urine from Clean catchImages: @IMAGESENCORD@Cta Chest W Or W Wo ContResult Date: 11/08/2018Examination: CTA Chest ? PE angiography History: Hypoxia; rule out pneumoniaversus pulmonary embolism Prior s: None Technique: Low-dose, multiplanar,helical CTA chest was perfor med with bolus IV injection from lung apices tobases. 3D-reformatted images were obt ained and reviewed on a dedicated viewingworkstation and directly supervis ed. Contrast: A total of 71 mL of Isovue-370was administered intravenously for this procedure. Findings: No evidence ofpulmonary embolism is seen. There is d ecreased size of the right hemithorax fromchronic scarring and retraction with mediastinal shift left to right.Additional area of consolidation is seen in the rig ht lower lobe and suggestssuperimposed pneumonia with subsegmental atelectasis. Subsegmental atelectasisis also noted in the left lung base, with pleural parench ymal scarring. Lowlung volumes are seen. No pneumothorax seen. Aorta normal in calib er withoutaneurysm or dissection. Mediastinum no adenopathy. Mediastinal shift is see n inthe left and right as a result of chronic changes in the right hemithorax. Heart shows no chamber enlargement or pericardial effusion. No acute fractures seen in the bony thorax, sternum, manubrium and rib cage. Multiple compressiondefor mities are seen in the mid and lower thoracic spine, with superimposedspondyloarthropa thy. Cannot exclude acute fracture.Impression: No evidence of pul monary embolism Right lower lobe pneumoniasuggested. Incidental scarring and retraction in the right hemithorax fromremote/chronic inflammatory disease and/or trauma. Bibasilar subsegmentalatelectasis. Report Electron ically Signed By: Pawel Zafar M.D. -11/08/2018 12:40 AMXr Chest PortResult D ate: 11/07/2018XR CHEST PORT CLINICAL INDICATION PROVIDED:. "sob." COMPAR GARTH:. 09/26/2015.FINDINGS:. The pericardial/cardiac silhouette is enlarg ed in the transversedimension. There is no pulmonary vascular congestion or interst itial edema.Linear density in the left lung base and faint densities in the right mi d tolower lung likely represent atelectasis. There is no lobar consolidation oreffusi on. There is no pneumothorax.IMPRESSION:. Bilateral lower lung atelectasis. No donna dence of consolidation oreffusion.Medications:Current Facility- Administered MedicationsMedication Dose Route Frequency LORazepam (ATIVAN) injection 0.5 mg 0.5 mg IntraVENous QHS albuterol-ipratropium (DUO-NEB) 2.5 MG-0 .5 MG/3 ML 3 mL Nebulization Q6HWA RT valproate (DEPACON) 250 mg in 0.9% sodiu m chloride 50 mL IVPB 250 mgIntraVENous Q12H methylPREDNISolone (PF) (SOLU-MEDROL) i njection 20 mg 20 mg IntraVENous Q12H 0.9% sodium chloride 1,000 mL with mvi, adult no.4 with vit K 10 mL, [id number] mg, folic acid 1 mg infusion IntraVENous Q24H d extrose 5 % - 0.45% NaCl infusion 50 mL/hr IntraVENous CONTINUOUS albuterol-ipratr opium (DUO-NEB) 2.5 MG-0.5 MG/3 ML 3 mL Nebulization Q4H PRN cinacalcet (SENSIP AR) tablet 60 mg 60 mg Oral DAILY budesonide (PULMICORT) 500 mcg/2 ml nebu lizer suspension 500 mcg NebulizationBID RTFacility-Administered Medications Orde red in Other EncountersMedication Dose Route Frequency midazolam (VERSED) injection IntraVENous PRN fentaNYL citrate (PF) injection PRN propofol (DIPRIVAN) 10 mg/mL injection IntraVENous PRN succinylcholine (ANECTINE) injection I ntraVENous PRN rocuronium injection IntraVENous PRN lactated Ringers infusi on IntraVENous CONTINUOUS dexamethasone (DECADRON) 4 mg/mL injection IntraVENo us PRN ondansetron (ZOFRAN) injection IntraVENous PRNActive Problems: COPD (c hronic obstructive pulmonary disease) ([facility]) (11/08/2018) Acute respiratory distress (11/08/2018) Pneumonia (11/08/2018) COPD exacerbation ([facility]) (11/08/2018)Assessment :COPD (chronic obstructive pulmonary disease) ([facility]) (11/08/2018) Acute respiratory di stress (11/08/2018) Pneumonia (11/08/2018) COPD exacerbation ([facility]) (11/08/2018) Ac manzanita resp failure combined, pneumonia R L L AND L L L ON CAT SCAN CHEST acute copd exacerbation P .. E . ruled out. BILATERAL BASAL ATELECTASES ASPRATIONS / DYSPHAG IAPLAN,Monitoring,Iv CEFTRIAXONE AND AZITHROMYCIN D/C Steroids, BRONCHOS PASM RESOLVEDbipap prn and at night. DUO NEB QIDD/W nursing staff.PATIENT IS AWAIT ING JEJUNOSTOMY PER DR KAYE . PENDING CONSENTRESPIRATORY STATUS IS S TABLE FOR GT / JEJUNOSTOMY INSERTION . Krystian Monae MD F.C.C.P.November 17, 20181 :50 PM Name Value Range Interpretation Code Description Data Harriett rce(s) Supporting Document(s ) ID Date Data Source [id number] 11/17/2018 11:45:55 AM EDT [facility] GISurgical evaluation noted and richard morin.Remains NPO.Dysphagia - for feeding tube placement (g vs j tube, depending on the anatomy)in the OR today per Dr. Kaye. Name Value Range Interpretation Code Description Data Harriett rce(s) Supporting Document(s ) ID Date Data Source [id number] 11/17/2018 08:39:51 AM EDT [facility] Have contacted Patient's medical power o f research attorney and She is aware of the planfor surgical gastrostomy and possible Tube jejunostomy if the Gastrostomy tubeis not possible because of the anatomy. She has given consent to proceed andanother sister Kirstin Jorge will be present to sign co nsent.The OR has given me 12 noon for time to do the procedure. Name Value Range Interpretation Code Description Data Harriett rce(s) Supporting Document(s ) ID Date Data Source [id number] 11/17/2018 08:25:37 AM EDT [facility] Relevant ProblemsNo relevant active prob lemsAnesthetic HistoryReview of Systems / Medical HistoryPatient summary reviewed, nursing notes reviewed and pertinent labs reviewedPulmonaryCOPD Neuro/PsychPsychia tric history CardiovascularGI/Hepatic/RenalGERD Endo/ Other Other FindingsPhysical ExamAirwayMallampati: IITM Distance: 4 - 6 cmNeck ROM: normal range of motion CardiovascularRegular rate and rhythm, S1 and S2 normal, no murmur, click, rub, or gallop DentalPulmonary Abdominal Other F indingsAnesthetic PlanASA: 3Anesthesia type: generalInduction: Intravenous Name Value Range Interpretation Code Description Data [facility] rce(s) Supporting Document(s ) ID Date Data Source [id number] 11/17/2018 07:30:59 AM EDT [facility] Bedside and Verbal shift change report g iven to Yuki Ohara RN (oncomingnurse) by Geovanna Vazquez RN (offgoing nurse). Report included the following information SBAR, Kardex, MARand Recent Results. Name Value Range Interpretation Code Description Data [facility] rce(s) Supporting Document(s ) ID Date Data Source [id number] 11/17/2018 09:02:35 AM EDT [facility] Name Value Range Interpretation Description Data Sup porting Code Source(s) Document(s ) Leukocytes 9.5 K/uL 4.8-10.6 [facility] - [#/volume] in Community Blood by Hospital Automated count Erythrocytes 4.49 4.70-6.0 Below low normal [facility] - [#/volume] in M/uL 0 Community Blood by Hospital Automated count Hemoglobin 14.6 14.0-18. [facility] - [Mass/volume] in g/dL 0 [facility] Blood Hospital Hematocrit 41.7 % 42.0-52. Below low normal [facility] - [Volume 0 Community Fraction] of Hospital Blood by Automated count Erythrocyte mean 92.9 FL 81.0-94. [facility] - corpuscular 0 Community volume [Entitic Hospital volume] by Automated count Erythrocyte mean 32.5 PG 27.0-35. [facility] - corpuscular 0 [facility] hemoglobin Hospital [Entitic mass] by Automated count Erythrocyte mean 35.0 30.7-37. [facility] - corpuscular g/dL 3 [facility] hemoglobin Hospital concentration [Mass/volume] by Automated count Erythrocyte 13.8 % 11.5-14. [facility] - distribution 0 Community width [Ratio] by Hospital Automated count Platelets 210 K/uL 130-400 [facility] - [#/volume] in Community Blood by Hospital Automated count Platelet mean 9.7 FL 9.2-11.8 [facility] - volume [Entitic Community volume] in Blood Hospital by Automated count Segmented 64 % 48-72 [facility] - neutrophils/100 Community leukocytes in Hospital Blood by Manual count Lymphocytes/100 30 % 18-40 [facility] - leukocytes in Community Blood by Manual Hospital count Monocytes/100 6 % 2-12 [facility] - leukocytes in Community Blood by Manual Hospital count Erythrocyte [facility] - morphology Community finding Hospital [Identifier] in Blood Platelet [facility] - adequacy Community [Presence] in Hospital Blood by Light microscopy Differential [facility] - cell count [facility] method - Blood Hospital ID Date Data Source [id number] 11/17/2018 07:05:12 AM EDT [facility] Name Value Range Interpretation Description Data Sup porting Code Source(s) Document(s ) Phosphate 2.9 mg/dL 2.5-4.9 [facility] - [Mass/volume] Community in Serum or Hospital Plasma ID Date Data Source [id number] 11/17/2018 07:05:12 AM EDT [facility] Name Value Range Interpretation Description Data Sup porting Code Source(s) Document(s ) Sodium 139 136-145 [facility] - [Moles/volume] in mmol/L [facility] Serum or Plasma Hospital Potassium 4.4 3.5-5.1 [facility] - [Moles/volume] in mmol/L [facility] Serum or Plasma Hospital Chloride 103 98-107 [facility] - [Moles/volume] in mmol/L [facility] Serum or Plasma Hospital Carbon dioxide, 28 21-32 [facility] - total mmol/L Community [Moles/volume] in Hospital Serum or Plasma Anion gap in Serum 12 10-20 [facility] - or Plasma mmol/L [facility] Hospital Glucose 93 74-106 [facility] - [Mass/volume] in mg/dL [facility] Serum or Plasma Hospital Urea nitrogen 14 7-18 [facility] - [Mass/volume] in mg/dL [facility] Serum or Plasma Hospital Creatinine 0.41 0.70-1. Below low normal [facility] - [Mass/volume] in mg/dL 30 [facility] Serum or Plasma Hospital Glomerular >60 [facility] - filtration Community rate/1.73 sq M Hospital predicted among blacks [Volume Rate/Area] in Serum or Plasma by Creatinine-based formula (MDRD) Glomerular >60 [facility] - filtration Community rate/1.73 sq M Hospital predicted among non-blacks [Volume Rate/Area] in Serum or Plasma by Creatinine-based formula (MDRD) Calcium 9.8 8.5-10. [facility] - [Mass/volume] in mg/dL 1 [facility] Serum or Plasma Hospital Bilirubin.total 1.0 0.2-1.0 [facility] - [Mass/volume] in mg/dL [facility] Serum or Plasma Hospital Alanine 30 U/L 13-61 [facility] - aminotransferase Community [Enzymatic Hospital activity/volume] in Serum or Plasma Aspartate 18 U/L 15-37 [facility] - aminotransferase Community [Enzymatic Hospital activity/volume] in Serum or Plasma by With P-5'-P Alkaline 47 U/L 45-117 [facility] - phosphatase Community [Enzymatic Hospital activity/volume] in Serum or Plasma Protein 6.1 6.4-8.2 Below low normal [facility] - [Mass/volume] in g/dL [facility] Serum or Plasma Hospital Albumin 2.9 3.5-4.7 Below low normal [facility] - [Mass/volume] in g/dL [facility] Serum or Plasma by Hospital Bromocresol purple (BCP) dye binding method Globulin 3.2 1.7-4.7 [facility] - [Mass/volume] in g/dL [facility] Serum by Hospital calculation Albumin/Globulin 0.9 0.7-2.8 [facility] - [Mass Ratio] in [facility] Serum or Plasma Hospital ID Date Data Source [id number] 11/17/2018 07:05:12 AM EDT [facility] Name Value Range Interpretation Description Data Sup porting Code Source(s) Document(s ) Magnesium 1.9 mg/dL 1.6-2.6 [facility] - [Mass/volume] Community in Serum or Hospital Plasma ID Date Data Source [id number] 11/17/2018 02:44:18 AM EDT [facility] Problem: Non-Violent RestraintsGoal: *No harm/injury to patient while restraints in useOutcome: Progressing Towards GoalGoal : *Patient's dignity will be maintainedOutcome: Progressing Towards G oal Name Value Range Interpretation Code Description Data Harriett rce(s) Supporting Document(s ) ID Date Data Source [id number] 11/16/2018 07:09:59 PM EDT [facility] Bedside and Verbal shift change report g iven to Geovanna Vazquez, NANCY (oncomingnurse) by Mazin Ritter RN (offgoing nurse). Report included thefollowing information SBAR, Kardex, MAR and Recent Results. Name Value Range Interpretation Code Description Data Harriett rce(s) Supporting Document(s ) ID Date Data Source [id number] 11/16/2018 06:39:16 PM EDT [facility] Progress NoteMID-[facility] ,[facility].Krystian Monae MD., F.C.C.P.Stella Hamilton MD., F.C.C.P. [address] [place] [id number] [place] [phone]: Evelio Carlin Sex: male DOA: 11/07/2018Da te of : 1950 Age: 68 y.o. LOS: LOS: 8 daysSubjective:Mr. Gayla beltran is a 68 y.o. year old male who is being seen for PNEUMONIA ,DYSPHAGIA ,MAWITI NG FOR SURGICAL JEJUNOSTMY TO BE DONE STOMCH IS SLIPPED IN CHEST DUE TO LARG E H. H.Objective:Vital Signs:Patient Vitals for the past 24 hrs: BP Temp Pulse Resp SpO2 Tmreoj37/04/19 1547 119/59 98.3 F (36.8 C) 69 18 96 % -11/16/18 0749 128/74 97. 2 F (36.2 C) 70 18 95 % -08/04/19 0521 - - - - - 56 kg (123 lb 6.4 oz)11/16/18 0400 126/78 96 F (35.6 C) 67 21 93 % -11/15/182019 - - - - 94 % -11/15/181999 123/80 96.6 F (35.9 C) 87 20 93 % -Pulse OX:SpO2 Readings from Last 6 Encounters:11/16/18 96%09/26/15 96%@LASTSAO2(6)@Physical Exam:METALLY RETARDED , COMFORTABLE General: Alert, cooperative, no distress, appears stated age. Head: N ormocephalic, without obvious abnormality, atraumatic. Eyes: Conjuncti vae/corneas clear. PERRL, EOMs intact. Nose: Nares normal. No drainage or sinus tenderness Throat: Lips, mucosa, and tongue normal Nec k: Supple, symmetrical, trachea midline, no adenopathy,thyroid: no enlargem ent/tenderness/nodules, no carotid bruit and no JVD. Lungs: MILD BASAL R ALES + to auscultation bilaterally. AIREXCHANGE IS GOOD Chest Wall: No te nderness or deformity. Heart: Regular rate and rhythm, S1, S2 normal, no murmur, click,rub or gallop. Abdomen: Soft, non-tender. Bowel sounds normal. No masses, No organomegaly. Extremities: Extremities normal, atraumatic, no cyano sis or edema. Pulses: 4+ bilaterally. Skin: Skin co nirali, texture, turgor normal. No rashes or lesions. Neurologic: MENTALLY RETARDED CNII-XII intact. No focal motor or sensorydeficit.Intake and Output:Last ree shifts: 11/14 1901 - 11/16 0700In: 1400 [I.V.:1400]Out: -Lab Results:Recent Resu lts (from the past 24 hour(s))MAGNESIUM Collection Time: 11/16/18 7:25 AMResult Value Ref Range Magnesium 1.9 1.6 - 2.6 mg/dLPHOSPHORUS Collection Time: 9 7:25 AMResult Value Ref Range Phosphorus 2.9 2.5 - 4.9 mg/dLMETABOLIC PANEL, COMP REHENSIVE Collection Time: 11/16/18 7:25 AMResult Value Ref Range Sodium 138 136 - 145 mmol/L Potassium 4.2 3.5 - 5.1 mmol/L Chloride 102 98 - 107 mmol/L CO2 28 21 - 32 mmol/L Anion gap 11 10 - 20 mmol/L Glucose 98 74 - 106 mg/dL BUN 13 7 - 18 mg/dL Creatinine 0.51 (L) 0.70 - 1.30 mg/dL GFR est AA >60 >60 ml/min/1.73m2 GFR est non-AA >60 >60 ml/min/1.73m2 Calcium 9.9 8.5 - 10.1 mg/dL Bilirubin, total 1.0 0.2 - 1.0 mg/dL ALT (SGPT) 31 13 - 61 U/L AST (SGOT) 20 15 - 37 U/L Alk. phosphatase 4 8 45 - 117 U/L Protein, total 6.6 6.4 - 8.2 g/dL Albumin 3.0 (L) 3.5 - 4.7 g/dL Glob ulin 3.6 1.7 - 4.7 g/dL A-G Ratio 0.8 0.7 - 2.8CBC WITH AUTOMATED DIFF Collection Ti me: 11/16/18 7:25 AMResult Value Ref Range WBC 10.2 4.8 - 10.6 K/uL RBC 4.69 (L) 4. 70 - 6.00 M/uL HGB 15.6 14.0 - 18.0 g/dL HCT 43.4 42.0 - 52.0 % MCV 92.5 81.0 - 94.0 FL MCH 33.3 27.0 - 35.0 PG MCHC 35.9 30.7 - 37.3 g/dL RDW 13.9 11.5 - 14.0 % PLATELE T 249 130 - 400 K/uL MPV 9.9 9.2 - 11.8 FL NEUTROPHILS 74 (H) 48.0 - 72.0 % LYMPHOC YTES 20 18.0 - 40.0 % MONOCYTES 6 2.0 - 12.0 % EOSINOPHILS 0 0.0 - 7.0 % BASOPHILS 0 0.0 - 3.0 % ABS. NEUTROPHILS 7.5 (H) 1.5 - 6.6 K/UL ABS. LYMPHOCYTES 2.0 1.5 - 3.5 K/UL ABS. MONOCYTES 0.6 0.0 - 1.0 K/UL ABS. EOSINOPHILS 0.0 0.0 - 0.7 K/UL ABS. BASO PHILS 0.0 0.0 - 0.1 K/UL DF AUTOMATED IMMATURE GRANULOCYTES 1 0.0 - 2.0 %ABG:N o results for input(s): PH, PCO2, PO2, HCO3, FIO2 in the last 72 hours.Recent Glucose Results:Lab ResultsComponent Value Date/Time GLU 98 11/16/2018 07:25 AM@LABAPCYTOINTE RPRETATION@CULTURESAll Micro Results Procedure Component Value Units Date/Patria e CULTURE, BLOOD [[id number]] Collected: 11/07/181999 Order Status: Completed S pecimen: Blood Updated: 11/12/18 0641 Special Requests: NO SPECIAL REQUESTS C ulture result: NO GROWTH 5 DAYS CULTURE, BLOOD [[id number]] Collected: 11/07/18 2 010 Order Status: Completed Specimen: Blood Updated: 11/12/18640 Special Request s: NO SPECIAL REQUESTS Culture result: NO GROWTH 5 DAYS STREP PNEUMO AG, URINE [[id number]] Collected: 11/09/18 0700 Order Status: Completed Specimen: Other from Urine, random Updated: 048 Strep pneumo Ag, urine NEGATIVE Comment:Presu mptive negative suggests nocurrent or recent pneumococcal infection.Infection due to S.pneumonia cannot beruled out since the antigen presentin the sample may be belo w the detectionlimit of the test. This test is notintended as a substitute for gram stainand bacterial culture Method IMMUNOCHROMATOGRAPHIC MEMBRANE ASSAY LEG IONELLA PNEUMOPHILA AG, URINE [[id number]] Collected: 11/08/18 1145 Order Status: Completed Specimen: Urine Updated: 11/09/18 1048 Legionella Ag, urine NEGA TIVE Comment:PRESUMPTIVE NEGATIVE forL.pneumophila Serogroup 1Antigen in u rine,suggestingno recent or current infection.Infection due to Legionellacan not be ruled out since otherserogroups and species may causedisease,antigen may not bepresent in urine in earlyinfection, and the level ofantigen present in the urine may be below the detectionlimit of the test. Method IMMUNOCHROMATOGRAPHIC MEMBRANE A SSAY CULTURE, URINE [[id number]] Collected: 11/07/18 1930 Order Status: Canceled Sp ecimen: Urine from Clean catchImages:@[email or web address]@Cta Chest W Or W Wo ContResult Date: 11/08/2018Examination: CTA Chest ? PE angiography History: Hypo magdy; rule out pneumoniaversus pulmonary embolism Priors: None Technique: Low-d ose, multiplanar,helical CTA chest was performed with bolus IV injection from lung apices tobases. 3D-reformatted images were obtained and reviewed on a Smart[employer] Vit[employer]ate d viewingworkstation and directly supervised. Contrast: A total of 71 mL of Isovue-370 was administered intravenously for this procedure. Findings: No evidence ofpulmo nary embolism is seen. There is decreased size of the right hemithorax fromchronic scarring and retraction with mediastinal shift left to right.Additional area of c onsolidation is seen in the right lower lobe and suggestssuperimposed pneumonia with subsegmental atelectasis. Subsegmental atelectasisis also noted in the left jorge g base, with pleural parenchymal scarring. Lowlung volumes are seen. No pneumothora x seen. Aorta normal in caliber withoutaneurysm or dissection. Mediastin um no adenopathy. Mediastinal shift is seen inthe left and right as a result of chr onic changes in the right hemithorax.Heart shows no chamber enlargement or pericard ial effusion. No acute fracturesseen in the bony thorax, sternum, manubrium and rib cage. Multiple compressiondeformities are seen in the mid and lower thoracic spine , with superimposedspondyloarthropathy. Cannot exclude acute fracture.Impression : No evidence of pulmonary embolism Right lower lobe pneumoniasuggested. Incidenta l scarring and retraction in the right hemithorax fromremote/chronic inflammato ry disease and/or trauma. Bibasilar subsegmentalatelectasis. Report Electron ically Signed By: Pawel Zafar M.D. -11/08/2018 12:40 AMXr Chest PortResult D ate: 11/07/2018XR CHEST PORT CLINICAL INDICATION PROVIDED:. "sob." COMPARISON: . 09/26/2015.FINDINGS:. The pericardial/cardiac silhouette is enlarg ed in the transversedimension. There is no pulmonary vascular congestion or interst itial edema.Linear density in the left lung base and faint densities in the right mi d tolower lung likely represent atelectasis. There is no lobar consolidation oreffusi on. There is no pneumothorax.IMPRESSION:. Bilateral lower lung atelectasis. No donna dence of consolidation oreffusion.Medications:Current Facility- Administered MedicationsMedication Dose Route Frequency LORazepam (ATIVAN) injection 0.5 mg 0.5 mg IntraVENous QHS albuterol-ipratropium (DUO-NEB) 2.5 MG-0 .5 MG/3 ML 3 mL Nebulization Q6HWA RT valproate (DEPACON) 250 mg in 0.9% sodiu m chloride 50 mL IVPB 250 mgIntraVENous Q12H methylPREDNISolone (PF) (SOLU-MEDROL) i njection 20 mg 20 mg IntraVENous Q12H 0.9% sodium chloride 1,000 mL with mvi, adult no.4 with vit K 10 mL, [id number] mg, folic acid 1 mg infusion IntraVENous Q24H d extrose 5 % - 0.45% NaCl infusion 50 mL/hr IntraVENous CONTINUOUS heparin (porcine ) injection 5,000 Units 5,000 Units SubCUTAneous Q12H albuterol-ipratropium (DUO-NEB) 2.5 MG-0.5 MG/3 ML 3 mL Nebulization Q4H PRN cinacalcet (SENSIP AR) tablet 60 mg 60 mg Oral DAILY budesonide (PULMICORT) 500 mcg/2 ml nebu lizer suspension 500 mcg NebulizationBID RTActive Problems: COPD (chronic obstru ctive pulmonary disease) ([facility]) (11/08/2018) Acute respiratory distress (11/08/2018) Pneumonia (11/08/2018) COPD exacerbation ([facility]) (11/08/2018)Assessment:COPD (chroni c obstructive pulmonary disease) ([facility]) (11/08/2018) Acute respiratory distress (11/08/2018) Pneumonia (11/08/2018) COPD exacerbation ([facility]) (11/08/2018) Acute r david failure combined, pneumonia R L L AND L L L ON CAT SCAN CHEST acute copd exacer bation P .. E . ruled out. BILATERAL BASAL ATELECTASESPLAN,Monitoring,Iv CEFTRIA XONE AND AZITHROMYCIN D/C Steroids, BRONCHOSPASM RESOLVEDbipap prn and at n ight. DUO NEB QIDD/W nursing staff.PATIENT IS AWAITING JEJUNOSTOMY PER DR KAYE . PENDING CONSENT MD Steve KnightNovember 16, 20186:33 PM Name Value Range Interpretation Code Description Data Harriett rce(s) Supporting Document(s ) ID Date Data Source [id number] 11/16/2018 06:32:08 PM EDT [facility] Problem: Pressure Injury - Risk ofGoal: *Prevention of pressure injuryDescriptionDocument Butch Scale a nd appropriate interventions in the flowsheet.Outcome: Progressing Towards G oalNote:Pressure Injury Interventions:Sensory Interventions: Avoid rigorous massage ov er bony prominences, Keep linensdry and wrinkle-free, Monitor skin under medical devices, Pad between skin toskin, Turn and reposition approx. every two hours (pill ows and wedges if needed)Moisture Interventions: Check for incontinence Q2 hours and as needed, MinimizelayersActivity Interventions: Assess need for specialty bed, Pressure redistributionbed/mattress(bed type)Mobility Interventions: HOB 30 degr ees or less, Pressure redistributionbed/mattress (bed type), T urn and reposition approx. every two hours(pillow andwedges)Nutrition Interve ntions: Document food/fluid/supplement intake, Offer supportwith meals,snacks a nd hydrationFriction and Shear Interventions: Lift sheet, Lift team/patient mobility t eam,Foam dressings/transparent film/skin sealantsProblem: Patient Education: Go t o Patient Education ActivityGoal: Patient/Family EducationOutcome: Progres sing Towards GoalProblem: Gas Exchange - ImpairedGoal: *Absence of hypoxiaOutcome : Progressing Towards GoalProblem: Non-Violent RestraintsGoal: *Removal fro m restraints as soon as assessed to be safeOutcome: Progressing Towards GoalGoa l: *No harm/injury to patient while restraints in useOutcome: Progressing To wards GoalProblem: Fluid Volume - Risk of, ImbalancedGoal: *Balanced intake and out putOutcome: Progressing Towards Goal Name Value Range Interpretation Code Description Data Harriett rce(s) Supporting Document(s ) ID Date Data Source [id number] 11/16/2018 04:29:49 PM EDT [facility] Have discussed the surgical options with Dr Sandro Ovalle and he informs me thatthe medical poa is the patient's sister who lives in [place]. I have put acall into her and left a message to call back. If she gives consent will proceedwith surgical gastrostomy tube possible jejunostomy tu be placement. Name Value Range Interpretation Code Description Data Harriett rce(s) Supporting Document(s ) ID Date Data Source [id number] 11/16/2018 02:34:00 PM EDT [facility] ID Progress Note11/16/2018Subjective:No ne w event overnightPatient with MR,schizophrenia,non verbal.Pt failed sw allow evaluation and multiple attempts to put NG tube wereunsucessfull, GI input noted Unable to provide any history.Legionella and strep pneumo Ag are negativeAfebrileWBC is WNLBlood cx NGTDObjective:Vitals:Patient Vitals for the past 24 hrs: BP Temp Puls e Resp SpO2 Jzvvag35/04/19 0749 128/74 97.2 F (36.2 C) 70 18 95 % -11/16/18 0521 - - - - - 56 kg (123 lb 6.4 oz)11/16/18 0400 126/78 96 F (35.6 C) 67 21 93 % -11/15 - - - - 94 % -11/15/18 2000 123/80 96.6 F (35.9 C) 87 20 93 % -11/15/18 1 603 129/85 96.6 F (35.9 C) 80 20 92 % -Tmax: Temp (24hrs), Av.6 F (35.9 C), Min:96 F (35.6 C), Max:97.2 F(36.2 C)Physical Exam:General: Awake non verb al,tries to hit examiner with hand, no distressEyes: Conjunctivae/corneas sudhakar r. PERRLNeck: Supple, symmetrical, trachea midline, no adenopathyLungs: Bilateral breath sounds with basal crackles..Heart: Regular rate and rhythm, S1, S2 normalAb domen: Soft, non-tender. Bowel sounds normal.Back: No CVA tenderness.Extremi ties: No cyanosis or edema. Covered in mittensPulses: 2+ and symmetric all extr emities.Skin: Skin color, texture, turgor normal. No rashes or lesionsLymph nodes: Cervical, supraclavicular, and axillary nodes normal.Current Facility-Administer ed MedicationsMedication Dose Route Frequency albuterol-ipratropium (DUO-NEB) 2.5 MG- 0.5 MG/3 ML 3 mL Nebulization Q6HWA RT LORazepam (ATIVAN) injection 0.5 mg 0.5 mg IntraVENous QHS valproate (DEPACON) 250 mg in 0.9% sodium chloride 50 mL IVPB 2 50 mgIntraVENous Q12H methylPREDNISolone (PF) (SOLU-MEDROL) injection 20 mg 20 m g IntraVENous Q12H 0.9% sodium chloride 1,000 mL with mvi, adult no.4 with vit K 10 mL, mg, folic acid 1 mg infusion IntraVENous Q24H dextrose 5 % - 0.45% NaCl infusion 50 mL/hr IntraVENous CONTINUOUS heparin (porcine) injection 5,000 Units 5,000 Units SubCUTAneous Q12H albuterol-ipratropium (DUO-NEB) 2.5 MG-0 .5 MG/3 ML 3 mL Nebulization Q4H PRN cinacalcet (SENSIPAR) tablet 60 mg 60 m g Oral DAILY ALPRAZolam (XANAX) tablet 0.25 mg 0.25 mg Oral DAILY budesonide (PULM ICORT) 500 mcg/2 ml nebulizer suspension 500 mcg NebulizationBID RTLabs:Recent Labs 11/15/1904WBC 10.2 10.4 11.0*HGB 15.6 15.2 15.8PLT 249 233 251BUN 13 15 14CREA 0.51* 0.42* 0.46*SGOT 20 17 25AP 48 44* 44*TBILI 1.0 0.8 0.7Cultures:Lab ResultsComponent Value Date/Time Culture result: NO GROWTH 5 DA YS 11/07/2018 08:10 PM Culture result: NO GROWTH 5 DAYS 11/07/2018 08:00 PMRadiolo gy:No results found.Assessment: R/o sepspis Nosocomial PNA COPD DysphagiaPlan:1. Continue Iv rocephin.Pantera Gonzalez [id number] AM Name Value Range Interpretation Code Description Data Harriett rce(s) Supporting Document(s ) ID Date Data Source [id number] 11/16/2018 08:05:15 AM EDT [facility] Bedside and Verbal shift change report carol pham to Jericho Ritter RN (oncomingnurse) by Geovanna Vazquez, NANCY (offgoing nurse). Rep ort included the following information SBAR, Kardex, MARand Recent Results. Name Value Range Interpretation Code Description Data [facility] rce(s) Supporting Document(s ) ID Date Data Source [id number] 11/16/2018 09:03:37 AM EDT [facility] - [facility] Name Value Range Interpretation Description Data Sup porting Code Source(s) Document(s ) Sodium 138 136-145 [facility] - [Moles/volume] in mmol/L [facility] Serum or Plasma Hospital Potassium 4.2 3.5-5.1 [facility] - [Moles/volume] in mmol/L [facility] Serum or Plasma Hospital Chloride 102 98-107 [facility] - [Moles/volume] in mmol/L [facility] Serum or Plasma Hospital Carbon dioxide, 28 21-32 [facility] - total mmol/L Community [Moles/volume] in Hospital Serum or Plasma Anion gap in Serum 11 10-20 [facility] - or Plasma mmol/L [facility] Glucose 98 74-106 [facility] - [Mass/volume] in mg/dL [facility] Serum or Plasma Hospital Urea nitrogen 13 7-18 [facility] - [Mass/volume] in mg/dL [facility] Serum or Plasma Hospital Creatinine 0.51 0.70-1. Below low normal [facility] - [Mass/volume] in mg/dL 30 [facility] Serum or Plasma Hospital Glomerular >60 [facility] - filtration Community rate/1.73 sq M Hospital predicted among blacks [Volume Rate/Area] in Serum or Plasma by Creatinine-based formula (MDRD) Glomerular >60 [facility] - filtration Community rate/1.73 sq M Hospital predicted among non-blacks [Volume Rate/Area] in Serum or Plasma by Creatinine-based formula (MDRD) Calcium 9.9 8.5-10. [facility] - [Mass/volume] in mg/dL 1 [facility] Serum or Plasma Hospital Bilirubin.total 1.0 0.2-1.0 [facility] - [Mass/volume] in mg/dL [facility] Serum or Plasma Hospital Alanine 31 U/L 13-61 [facility] - aminotransferase Community [Enzymatic Hospital activity/volume] in Serum or Plasma Aspartate 20 U/L 15-37 [facility] - aminotransferase Community [Enzymatic Hospital activity/volume] in Serum or Plasma by With P-5'-P Alkaline 48 U/L 45-117 [facility] - phosphatase Community [Enzymatic Hospital activity/volume] in Serum or Plasma Protein 6.6 6.4-8.2 [facility] - [Mass/volume] in g/dL [facility] Serum or Plasma [facility] Albumin 3.0 3.5-4.7 Below low normal [facility] - [Mass/volume] in g/dL [facility] Serum or Plasma by Hospital Bromocresol purple (BCP) dye binding method Globulin 3.6 1.7-4.7 [facility] - [Mass/volume] in g/dL [facility] Serum by [facility] calculation Albumin/Globulin 0.8 0.7-2.8 [facility] - [Mass Ratio] in [facility] Serum or Plasma Hospital ID Date Data Source [id number] 11/16/2018 09:03:37 AM EDT [facility] Value Range Interpretation Description Data Sup porting Code Source(s) Document(s ) Phosphate 2.9 mg/dL 2.5-4.9 [facility] - [Mass/volume] Community in Serum or Hospital Plasma ID Date Data Source [id number] 11/16/2018 09:03:37 AM [facility] Interpretation Description Data Sup porting Code Source(s) Document(s ) Magnesium 1.9 mg/dL 1.6-2.6 [facility] - [Mass/volume] Community in Serum or Hospital Plasma ID Date Data Source [id number] 11/16/2018 08:55:07 AM EDT [facility] Value Range Interpretation Description Data Sup porting Code Source(s) Document(s ) Leukocytes 10.2 4.8-10.6 [facility] - [#/volume] in K/uL [facility] Blood by Hospital Automated count Erythrocytes 4.69 4.70-6.0 Below low normal [facility] - [#/volume] in M/uL 0 Community Blood by Hospital Automated count Hemoglobin 15.6 14.0-18. [facility] - [Mass/volume] in g/dL 0 [facility] Hematocrit 43.4 % 42.0-52. [facility] - [Volume 0 Community Fraction] of Hospital Blood by Automated count Erythrocyte mean 92.5 FL 81.0-94. [facility] - corpuscular 0 [facility] volume [Entitic Hospital volume] by Automated count Erythrocyte mean 33.3 PG 27.0-35. [facility] - corpuscular 0 [facility] hemoglobin Hospital [Entitic mass] by Automated count Erythrocyte mean 35.9 30.7-37. [facility] - corpuscular g/dL 3 [facility] hemoglobin Hospital concentration [Mass/volume] by Automated count Erythrocyte 13.9 % 11.5-14. [facility] - distribution 0 Community width [Ratio] by Hospital Automated count Platelets 249 K/uL 130-400 [facility] - [#/volume] in Community Blood by Hospital Automated count Platelet mean 9.9 FL 9.2-11.8 [facility] - volume [Entitic Community volume] in Blood Hospital by Automated count Segmented 74 % 48.0-72. Above high normal [facility] - neutrophils/100 0 Community leukocytes in Hospital Blood Lymphocytes/100 20 % 18.0-40. [facility] - leukocytes in 0 [facility] Blood Hospital Monocytes/100 6 % 2.0-12.0 [facility] - leukocytes in [facility] Eosinophils/100 0 % 0.0-7.0 [facility] - leukocytes in [facility] Blood Hospital Basophils/100 0 % 0.0-3.0 [facility] - leukocytes in [facility] Segmented 7.5 K/UL 1.5-6.6 Above high normal [facility] - neutrophils Community [#/volume] in Hospital Blood Lymphocytes 2.0 K/UL 1.5-3.5 [facility] - [#/volume] in [facility] Blood Hospital Monocytes 0.6 K/UL 0.0-1.0 [facility] - [#/volume] in [facility] Blood Hospital Eosinophils 0.0 K/UL 0.0-0.7 [facility] - [#/volume] in [facility] Blood Hospital Basophils 0.0 K/UL 0.0-0.1 [facility] - [#/volume] in [facility] Blood [facility] Differential [facility] - cell count [facility] Blood [facility] Immature 1 % 0.0-2.0 [facility] - granulocytes/100 Community leukocytes in Hospital Blood by Automated count ID Date Data Source [id number] 11/16/2018 02:15:26 AM EDT [facility] Problem: Non-Violent RestraintsGoal: Non -violent Restraints:Patient InterventionsOutcome: Progressing Toward s Goal Name Value Range Interpretation Code Description Data Harriett rce(s) Supporting Document(s ) ID Date Data Source [id number] 11/15/2018 07:02:56 PM EDT [facility] Bedside and Verbal shift change report carol pham to Geovanna Vazquez RN (oncoming nurse)by Yuki Ohara RN (offgoing nurse) . Report included the following information SBAR,Intake/Output, MAR, Recent Results. Name Value Range Interpretation Code Description Data Harriett rce(s) Supporting Document(s ) ID Date Data Source [id number] 11/15/2018 03:45:54 PM EDT [facility] ID Progress Note11/14/2018Subjective:No ne w event overnightPatient with MR,schizophrenia,non verbal.Pt failed sw allow evaluation and multiple attempts to put NG tube wereunsucessfull, GI input noted Unable to provide any history.Legionella and strep pneumo Ag are negativeAfebrileWBC is WNLBlood cx NGTDObjective:Vitals:Patient Vitals for the past 24 hrs: BP Temp Puls e Resp [id number]/14/18 0827 134/88 98.1 F (36.7 C) 100 20 (!) 88 %11/14/18 0412 126/76 97.9 F (36.6 C) 69 20 95 %11/13/18 2035 - - - - 95 %11/13/18 1925 (!) 144/93 97.8 F (36.6 C) 85 20 94 %11/13/18 1539 (!) 145/91 97.8 F (36.6 C) 88 18 (!) 89 %Tmax: T emp (24hrs), Av.9 F (36.6 C), Min:97.8 F (36.6 C), Max:98.1 F(36.7 C)Physica l Exam:General: Awake non verbal,tries to hit examiner with hand, no distressEyes: Conjunctivae/corneas clear. PERRLNeck: Supple, symmetrical, trachea midline, no adenopathyLungs: Bilateral breath sounds with basal crackles..Heart: Regular rat e and rhythm, S1, S2 normalAbdomen: Soft, non-tender. Bowel sounds normal.Back: No CVA tenderness.Extremities: No cyanosis or edema. Covered in mittensPulses: 2+ and symmetric all extremities.Skin: Skin color, texture, turgor normal. No rashes or les ionsLymph nodes: Cervical, supraclavicular, and axillary nodes normal.Current Facili ty-Administered MedicationsMedication Dose Route Frequency albuterol-ipratropium ( DUO-NEB) 2.5 MG-0.5 MG/3 ML 3 mL Nebulization Q6HWA RT methylPREDNISolon e (PF) (SOLU-MEDROL) injection 20 mg 20 mg IntraVENous Q12H LORazepam (ATIVAN) inj ection 0.5 mg 0.5 mg IntraVENous Q12H PRN 0.9% sodium chloride 1,000 mL with mvi, adult no.4 with vit K 10 mL, [id number] mg, folic acid 1 mg infusion IntraVENous Q 24H dextrose 5 % - 0.45% NaCl infusion 50 mL/hr IntraVENous CONTINUOUS heparin (p orcine) injection 5,000 Units 5,000 Units SubCUTAneous Q12H albuterol-ipratropium (DUO-NEB) 2.5 MG-0.5 MG/3 ML 3 mL Nebulization Q4H PRN cinacalcet (SENSIP AR) tablet 60 mg 60 mg Oral DAILY lamoTRIgine (LaMICtal) tablet 50 mg 50 mg Oral BID ALPRAZolam (XANAX) tablet 0.25 mg 0.25 mg Oral DAILY cefTRIAXone (FEDE EPHIN) 1 g in 0.9% sodium chloride (MBP/ADV) 50 mL MBP 1 gIntraVENous Q24H azithrom ycin (ZITHROMAX) 500 mg in 0.9% sodium chloride 250 mL IVPB 500 mgIntraVENous Q24H budesonide (PULMICORT) 500 mcg/2 ml nebulizer suspension 500 mcg Nebulizati onBID RTLabs:Recent Labs 3 11/12/1906WBC 11.0* 9.7 1 1.7*HGB 15.8 15.1 14.9PLT 251 242 238BUN 14 16 15CREA 0.46* 0.42* 0.49*SGOT 25 33 43 *AP 44* 47 51TBILI 0.7 0.6 0.6Cultures:Lab ResultsComponent Value Date/Time Culture result: NO GROWTH 5 DAYS 11/07/2018 08:10 PM Culture result: NO GROWTH 5 DAYS 019 08:00 PMRadiology:No results found.Assessment: R/o sepspis Nosocomi al PNA COPD DysphagiaPlan:1. Will complete Iv rocephin today2. Continue current ma Jensen Gomez, MDAugust [id number] AM Name Value Range Interpretation Code Description Data Harriett rce(s) Supporting Document(s ) ID Date Data Source [id number] 11/15/2018 03:45:38 PM EDT [facility] ID Progress Note11/15/2018Subjective:No ne w event overnightPatient with MR,schizophrenia,non verbal.Pt failed sw allow evaluation and multiple attempts to put NG tube wereunsucessfull, GI input noted Unable to provide any history.Legionella and strep pneumo Ag are negativeAfebrileWBC is WNLBlood cx NGTDObjective:Vitals:Patient Vitals for the past 24 hrs: BP Temp Puls e Resp [id number]/15/18 0724 114/88 96 F (35.6 C) 85 20 94 %11/15/18 0430 107/60 96.4 F (35.8 C) 97 20 94 %11/14/18 2000 139/64 97.2 F (36.2 C) 98 21 -11/14/18 1524 1 28/82 98 F (36.7 C) 98 20 -Tmax: Temp (24hrs), Av.9 F (36.1 C), Min:96 F (35.6 C), Max:98 F (36.7 C)Physical Exam:General: Awake non verbal,tries to hit examiner with hand, no distressEyes: Conjunctivae/corneas clear. PERRLNeck: S upple, symmetrical, trachea midline, no adenopathyLungs: Bilateral breath soun ds with basal crackles..Heart: Regular rate and rhythm, S1, S2 normalAbdomen: Soft , non-tender. Bowel sounds normal.Back: No CVA tenderness.Extremities: No cyanosis or edema. Covered in mittensPulses: 2+ and symmetric all extremities.Skin: Skin col or, texture, turgor normal. No rashes or lesionsLymph nodes: Cervical, supraclavi cular, and axillary nodes normal.Current Facility-Administered MedicationsMedicat ion Dose Route Frequency albuterol-ipratropium (DUO-NEB) 2.5 MG-0 .5 MG/3 ML 3 mL Nebulization Q6HWA RT LORazepam (ATIVAN) injection 0.5 mg 0.5 mg IntraVENous QHS valproate (DEPACON) 250 mg in 0.9% sodium chloride 50 mL IVPB 2 50 mgIntraVENous Q12H methylPREDNISolone (PF) (SOLU-MEDROL) injection 20 mg 20 m g IntraVENous Q12H 0.9% sodium chloride 1,000 mL with mvi, adult no.4 with vit K 10 mL, [id number] mg, folic acid 1 mg infusion IntraVENous Q24H dextrose 5 % - 0.45% NaCl infusion 50 mL/hr IntraVENous CONTINUOUS heparin (porcine) injection 5,000 Units 5,000 Units SubCUTAneous Q12H albuterol-ipratropium (DUO-NEB) 2.5 MG-0 .5 MG/3 ML 3 mL Nebulization Q4H PRN cinacalcet (SENSIPAR) tablet 60 mg 60 m g Oral DAILY ALPRAZolam (XANAX) tablet 0.25 mg 0.25 mg Oral DAILY budesonide (PULM ICORT) 500 mcg/2 ml nebulizer suspension 500 mcg NebulizationBID RTLabs:Recent Labs 11/14/1904635WBC 10.4 11.0* 9.7HGB 15.2 15.8 15.1PLT 233 251 242BUN 15 14 16CREA 0.42* 0.46* 0.42*SGOT 17 25 33AP 44* 44* 47TBILI 0.8 0.7 0.6Cu ltures:Lab ResultsComponent Value Date/Time Culture result: NO GROWTH 5 DAYS 019 08:10 PM Culture result: NO GROWTH 5 DAYS 11/07/2018 08:00 PMRadiology:No results found.Assessment: R/o sepspis Nosocomial PNA COPD DysphagiaPlan:1. Continue Iv rocephin.Pantera Gonzalez AM Name Value Range Interpretation Code Description Data Harriett rce(s) Supporting Document(s ) ID Date Data Source [id number] 11/15/2018 02:50:39 PM EDT [facility] Will attempt to reach family to discuss the surgical options. Name Value Range Interpretation Code Description Data Harriett rce(s) Supporting Document(s ) ID Date Data Source [id number] 11/15/2018 01:42:07 PM EDT [facility] ID Progress Note11/15/2018Subjective:No ne w event overnightPatient with MR,schizophrenia,non verbal.Pt failed sw allow evaluation and multiple attempts to put NG tube wereunsucessfull, GI input noted Unable to provide any history.Legionella and strep pneumo Ag are negativeAfebrileWBC is WNLBlood cx NGTDObjective:Vitals:Patient Vitals for the past 24 hrs: BP Temp Puls e Resp [id number]/15/18 0724 114/88 96 F (35.6 C) 85 20 94 %11/15/18 0430 107/60 96.4 F (35.8 C) 97 20 94 %11/14/18 2000 139/64 97.2 F (36.2 C) 98 21 -11/14/18 1524 1 28/82 98 F (36.7 C) 98 20 -Tmax: Temp (24hrs), Av.9 F (36.1 C), Min:96 F (35.6 C), Max:98 F (36.7 C)Physical Exam:General: Awake non verbal,tries to hit examiner with hand, no distressEyes: Conjunctivae/corneas clear. PERRLNeck: S upple, symmetrical, trachea midline, no adenopathyLungs: Bilateral breath soun ds with basal crackles..Heart: Regular rate and rhythm, S1, S2 normalAbdomen: Soft , non-tender. Bowel sounds normal.Back: No CVA tenderness.Extremities: No cyanosis or edema. Covered in mittensPulses: 2+ and symmetric all extremities.Skin: Skin col or, texture, turgor normal. No rashes or lesionsLymph nodes: Cervical, supraclavi cular, and axillary nodes normal.Current Facility-Administered MedicationsMedicat ion Dose Route Frequency albuterol-ipratropium (DUO-NEB) 2.5 MG-0 .5 MG/3 ML 3 mL Nebulization Q6HWA RT LORazepam (ATIVAN) injection 0.5 mg 0.5 mg IntraVENous QHS valproate (DEPACON) 250 mg in 0.9% sodium chloride 50 mL IVPB 2 50 mgIntraVENous Q12H methylPREDNISolone (PF) (SOLU-MEDROL) injection 20 mg 20 m g IntraVENous Q12H 0.9% sodium chloride 1,000 mL with mvi, adult no.4 with vit K 10 mL, [id number] mg, folic acid 1 mg infusion IntraVENous Q24H dextrose 5 % - 0.45% NaCl infusion 50 mL/hr IntraVENous CONTINUOUS heparin (porcine) injection 5,000 Units 5,000 Units SubCUTAneous Q12H albuterol-ipratropium (DUO-NEB) 2.5 MG-0 .5 MG/3 ML 3 mL Nebulization Q4H PRN cinacalcet (SENSIPAR) tablet 60 mg 60 m g Oral DAILY ALPRAZolam (XANAX) tablet 0.25 mg 0.25 mg Oral DAILY budesonide (PULM ICORT) 500 mcg/2 ml nebulizer suspension 500 mcg NebulizationBID RTLabs:Recent Labs 11/14/1904WBC 10.4 11.0* 9.7HGB 15.2 15.8 15.1PLT 233 251 242BUN 15 14 16CREA 0.42* 0.46* 0.42*SGOT 17 25 33AP 44* 44* 47TBILI 0.8 0.7 0.6Cu ltures:Lab ResultsComponent Value Date/Time Culture result: NO GROWTH 5 DAYS 019 08:10 PM Culture result: NO GROWTH 5 DAYS 11/07/2018 08:00 PMRadiology:No results found.Assessment: R/o sepspis Nosocomial PNA COPD DysphagiaPlan:1. Continue Iv rocephin.Monica Tadele, Pantera 3, [id number] AM Name Value Range Interpretation Code Description Data Harriett rce(s) Supporting Document(s ) ID Date Data Source [id number] 11/15/2018 12:14:57 PM EDT [facility] PULMONARY/ CCM- Consult NotePatient: Ivelisse Carlin Sex: male DOA: 11/07/2018Date of : 1 Age: 68 y.o. LOS: LOS: 7 daysHPI:kassie Carlin is a 68 y.o. male who has been seen for resp failure.7:31 PM: Evelio Carlin is a 68 y.o. male with h/o COPD, GERD,hyperparathyroidism, mental retarda tion, Pneumonia, pulmonary embolism, andschizophrenia who presents to the ED via EMS for shortness of breath andwheezing. Per triage note patient was given Duo-Ne b and Solu-Medrol 40 mg IM atfacility. Seen earlier today,confused,breathing better. 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 Authorizing Providermultivi tamin (ONE A DAY) tablet Take 1 Tab by mouth daily. Yes Provider,Historicalclorazep ate (TRANXENE) 3.75 mg tablet Take by mouth nightly. Yes Provider,Historicalalbute rol-ipratropium (DUO-NEB) 2.5 mg-0.5 mg/3 ml nebu 3 mL by Nebulizationroute every six (6) hours as needed. Yes Provider, HistoricallamoTRIgine (LAMICTAL) 25 mg t ablet Take 50 mg by mouth two (2) times a day.Yes Provider, Historicalcinacalcet ( SENSIPAR) 30 mg tablet Take 60 mg by mouth daily. Yes Provider,Historicalvalproat e (DEPAKENE) 250 mg/5 mL syrup Take 750 mg by mouth two (2) times a day.Provider, Hist oricalNo Known AllergiesHistory reviewed. No pertinent surgical history.History revie wed. No pertinent family history.Social HistorySocioeconomic History Marital st atus: SINGLE Spouse name: Not on file Number of children: Not on file Years o f education: Not on file Highest education level: Not on fileTobacco Use Smoking s tatus: Never Smoker Smokeless tobacco: Never UsedSubstance and Sexual Activity Alcoh ol use: No Drug use: NoReview of SystemsPertinent items are noted in the History of Present Illness.Physical Exam:Current medications:Current Facilit y-Administered Medications: albuterol-ipratropium (DUO-NEB) 2.5 MG-0 .5 MG/3 ML, 3 mL, Nebulization, N2PRXGF, Stella Hamilton MD, 3 mL at 11/15/18 081 3 LORazepam (ATIVAN) injection 0.5 mg, 0.5 mg, IntraVENous, QHS, Mili Hills DO , 0.5 mg at 11/14/18 2152 valproate (DEPACON) 250 mg in 0.9% sodium chloride 50 mL IVPB, 250 mg,IntraVENous, Q12H, Mili Hills DO, Last Rate: 50 mL/hr at 11/15/18 1024,250 mg at 11/15/18 1024 methylPREDNISolone (PF) (SOLU-MEDROL) in jection 20 mg, 20 mg, IntraVENous,Q12H, Krystian Monae MD, 20 mg at 11/15/18 085 1 0.9% sodium chloride 1,000 mL with mvi, adult no.4 with vit K 10 mL, [id number] mg, folic acid 1 mg infusion, , IntraVENous, Q24H, Mili Hills DO, LastRate: 100 mL/hr at 11/14/18 1754 dextrose 5 % - 0.45% NaCl infusion, 50 mL/hr, IntraVENo us, CONTINUOUS, Stella Hamilton MD, Last Rate: 50 mL/hr at 11/15/18 0852, 50 mL/hr at 0 11/15/18 0852 heparin (porcine) injection 5,000 Units, 5,000 Units, SubCUTAneous, Q12H,Polo Molina MD, 5,000 Units at 11/15/18 0412 albuterol-ipratropium (D UO-NEB) 2.5 MG-0.5 MG/3 ML, 3 mL, Nebulization, Q4HPRN, Polo Molina MD cinacalcet (SENSIPAR) tablet 60 mg, 60 mg, Oral, DAILY, Mili Hills DO,Stopped at 11/12/18 0900 ALPRAZolam (XANAX) tablet 0.25 mg, 0.25 mg, Oral, DAILY, Eloisa Hills DO,Stopped at 11/12/18 0900 budesonide (PULMICORT) 500 mcg/2 ml nebu lizer suspension, 500 mcg,Nebulization, BID RT, Stella Hamilton MD, 500 mcg at 11/15 0814DataVisit VitalsBP 114/88 (BP 1 Location: Left arm, BP Patient Position: At rest;Supine)Pulse 85Temp 96 F (35.6 C)Resp 20Ht 5' 2" (1.575 m)Wt 59.1 kg (1 30 lb 6.4 oz)SpO2 94%BMI 23.85 kg/m Intake and Output:Date 11/14/18699 - 11/15/18 0659 11/15/18699 - 11/16/18 0659Shift 7847-2561 9111-3975 24 Hour Total 0700-1 859 2808-6696 24 Hour TotalINTAKEI.V.(mL/kg/hr) 1972(2.8) 1300 (1.8) 3272(2.3) 100 100 Volume (dextrose 5 % - 0.45% NaCl infusion) 177 1772 Vol ume (0.9% sodium chloride 1,000 mL with mvi, adult no.4 with vit K 10 mL,thiamine 100 mg, folic acid 1 mg infusion) 100 1000 1100 Volume (cefTRIAXone (ROCEPHIN) 1 g in 0. 9% sodium chloride (MBP/ADV) 50 mLMBP) 50 50 50 50 Volume (azithromycin (ZITHROMAX) 500 mg in 0.9% sodium chloride 250 mL IVPB)250 250 Volume (valproate (DEPACON ) 250 mg in 0.9% sodium chloride 50 mL IVPB) 50 42285 50 50Shift Total(mL/kg) 1971(3 3.3) 1300(22) 3272(55.3) 100(1.7) 100(1.7)OUTPUTShift Total(mL/kg)NET 1971 1300 3272 100 100Weight (kg) 59.1 59.1 59.1 59.1 59.1 59.1Pulse OX:SpO2 Readings fro m Last 6 Encounters:11/15/18 94%09/26/15 96%@LASTSAO2(6)@PHYSICAL EXAM:General: Lethargic,responding.Head: Normocephalic, without obvious abnormality, atraumatic. Eyes: Conjunctivae clear, anicteric sclerae. Pupils are equalNose: Nares n ormal. No drainage or sinus tenderness.Throat: Lips, mucosa, and tongue normal. No ThrushNeck: Supple, symmetrical, no adenopathy, thyroid: no n tender no carotid bruit and no JVD.Back: Symmetric, No CVA tenderness.Lungs: Scattered rhonchi,Chest wall: No tenderness or deformity. No Accessory muscle use.He art: Regular rate and rhythm, no murmur, rub or gallop.Abdomen: Soft, non-tende r. Not distended. Bowel sounds normal. No massesExtremities: Extremities normal, a traumatic, No cyanosis. No edema. No clubbingSkin: Texture, turgor normal . No rashes or lesions. Not JaundicedLymph nodes: Cervical, supraclavicular normal. Psych: Good insight. Not depressed. Not anxious or agitated.Neurologic: EOMs int act. No facial asymmetry. No aphasia or slurred speech.Most recent labs:Recent L abs 11/14/1904WBC 10.4 11.0* 9.7HGB 15.2 1 5.8 15.1HCT 43.4 43.9 43.5PLT 233 251 242Recent Labs 11/14/1904NA 139 139 140K 4.2 4.2 4.0CL 104 103 103CO2 28 26 28GLU 108* 85 77BUN 15 14 16CREA 0.42* 0.46* 0.42*CA 9.2 9.1 9.1MG 1.9 1.9 1.9PHOS 2.9 3.1 2.9ALB 2.7 * 2.9* 2.9*TBILI 0.8 0.7 0.6SGOT 17 25 33ALT 27 34 31No results for input(s): PH, PCO 2, PO2, HCO3, FIO2 in the last 72 hours.ABG:No results for input(s): PH, P CO2, PO2, HCO3, FIO2 in the last 72 hours.Cultures:No results found for: [employer] SLab ResultsComponent Value Date/Time Culture result: NO GROWTH 5 DAYS 11/07/2018 08:1 0 PM Culture result: NO GROWTH 5 DAYS 11/07/2018 08:00 PMImages:Cta Chest W Or W Wo ContResult Date: 11/08/2018Examination: CTA Chest ? PE angiography History: Hypo magdy; rule out pneumoniaversus pulmonary embolism Priors: None Technique: Low-d ose, multiplanar,helical CTA chest was performed with bolus IV injection from lung apices tobases. 3D-reformatted images were obtained and reviewed on a [employer] d viewingworkstation and directly supervised. Contrast: A total of 71 mL of Isovue-370 was administered intravenously for this procedure. Findings: No evidence ofpulmo nary embolism is seen. There is decreased size of the right hemithorax fromchronic scarring and retraction with mediastinal shift left to right.Additional area of c onsolidation is seen in the right lower lobe and suggestssuperimposed pneumonia with subsegmental atelectasis. Subsegmental atelectasisis also noted in the left jorge g base, with pleural parenchymal scarring. Lowlung volumes are seen. No pneumothora x seen. Aorta normal in caliber withoutaneurysm or dissection. Mediastin um no adenopathy. Mediastinal shift is seen inthe left and right as a result of chr onic changes in the right hemithorax.Heart shows no chamber enlargement or pericard ial effusion. No acute fracturesseen in the bony thorax, sternum, manubrium and rib cage. Multiple compressiondeformities are seen in the mid and lower thoracic spine , with superimposedspondyloarthropathy. Cannot exclude acute fracture.Impression : No evidence of pulmonary embolism Right lower lobe pneumoniasuggested. Incidenta l scarring and retraction in the right hemithorax fromremote/chronic inflammato ry disease and/or trauma. Bibasilar subsegmentalatelectasis. Report Gloria leigh Signed By: Pawel Zafar M.D. -11/08/2018 12:40 AMXr Chest PortResult D ate: 11/07/2018XR CHEST PORT CLINICAL INDICATION PROVIDED:. "sob." COMPARISON: . 09/26/2015.FINDINGS:. The pericardial/cardiac silhouette is enlarg ed in the transversedimension. There is no pulmonary vascular congestion or interst itial edema.Linear density in the left lung base and faint densities in the right mi d tolower lung likely represent atelectasis. There is no lobar consolidation oreffusi on. There is no pneumothorax.IMPRESSION:. Bilateral lower lung atelectasis. No donna dence of consolidation oreffusion.Assessment/PlanActive Problem s: COPD (chronic obstructive pulmonary disease) (HCC) (11/08/2018) Acute respir atory distress (11/08/2018) Pneumonia (11/08/2018) COPD exacerbation (HCC) () Acute resp failure combined, pneumonia acute copd exacerbation pe rul ed out.PLAN,Monitoring,Ivabx,Iv steroids taperedbipap prn and at night.NebD/w mason sing staff.pulmonary status ok for surgical procedure.Pantera Munson 3, [phone] billing code submitted in association with this evaluation also includes theti me to review patient's prior records, communicate with the physician team,obta in corroborating data, and discuss the risk and benefits of the proposedmanagement p frantz with the patient and their family >30 minutes. Name Value Range Interpretation Code Description Data [facility] Supporting Document(s ) ID Date Data Source [id number] 11/15/2018 07:26:45 AM EDT [facility] Bedside and Verbal shift change report g iven to TERESA OHARA RN (oncoming nurse)by Ana Ramesh (offgoing nurse). Report inc luded the following information SBAR,Kardex, Intake/Output, MAR and Recent Results. Name Value Range Interpretation Code Description Data [facility](s) Supporting Document(s ) ID Date Data Source [id number] 11/15/2018 06:52:01 AM EDT [facility] Bedside and Verbal shift change report carol pham to Ana Yates RN (oncoming nurse)by Yuki Ohara RN (offgoing nurse) . Report included the following information SBAR,Intake/Output, MAR, Recent Results. Name Value Range Interpretation Code Description Data Harriett rce(s) Supporting Document(s ) ID Date Data Source [id number] 11/15/2018 07:39:40 AM EDT [facility] Name Value Range Interpretation Description Data Sup porting Code Source(s) Document(s ) Sodium 139 136-145 [facility] - [Moles/volume] in mmol/L [facility] Serum or Plasma Hospital Potassium 4.2 3.5-5.1 [facility] - [Moles/volume] in mmol/L [facility] Serum or Plasma Hospital Chloride 104 98-107 [facility] - [Moles/volume] in mmol/L [facility] Serum or Plasma Hospital Carbon dioxide, 28 21-32 [facility] - total mmol/L Community [Moles/volume] in Hospital Serum or Plasma Anion gap in Serum 11 10-20 [facility] - or Plasma mmol/L [facility] Glucose 108 74-106 Above high [facility] - [Mass/volume] in mg/dL normal [facility] Serum or Plasma Hospital Urea nitrogen 15 7-18 [facility] - [Mass/volume] in mg/dL [facility] Serum or Plasma Hospital Creatinine 0.42 0.70-1. Below low normal [facility] - [Mass/volume] in mg/dL 30 [facility] Serum or Plasma Hospital Glomerular >60 [facility] - filtration Community rate/1.73 sq M Hospital predicted among blacks [Volume Rate/Area] in Serum or Plasma by Creatinine-based formula (MDRD) Glomerular >60 [facility] - filtration Community rate/1.73 sq M Hospital predicted among non-blacks [Volume Rate/Area] in Serum or Plasma by Creatinine-based formula (MDRD) Calcium 9.2 8.5-10. [facility] - [Mass/volume] in mg/dL 1 [facility] Serum or Plasma Hospital Bilirubin.total 0.8 0.2-1.0 [facility] - [Mass/volume] in mg/dL [facility] Serum or Plasma Hospital Alanine 27 U/L 13-61 [facility] - aminotransferase Community [Enzymatic Hospital activity/volume] in Serum or Plasma Aspartate 17 U/L 15-37 [facility] - aminotransferase Community [Enzymatic Hospital activity/volume] in Serum or Plasma by With P-5'-P Alkaline 44 U/L 45-117 Below low normal [facility] - phosphatase Community [Enzymatic Hospital activity/volume] in Serum or Plasma Protein 5.9 6.4-8.2 Below low normal [facility] - [Mass/volume] in g/dL [facility] Serum or Plasma [facility] Albumin 2.7 3.5-4.7 Below low normal [facility] - [Mass/volume] in g/dL [facility] Serum or Plasma by Hospital Bromocresol purple (BCP) dye binding method Globulin 3.2 1.7-4.7 [facility] - [Mass/volume] in g/dL [facility] Serum by [facility] calculation Albumin/Globulin 0.8 0.7-2.8 [facility] - [Mass Ratio] in [facility] Serum or Plasma Hospital ID Date Data Source [id number] 11/15/2018 07:39:40 AM EDT [facility] Name Value Range Interpretation Description Data Sup porting Code Source(s) Document(s ) Phosphate 2.9 mg/dL 2.5-4.9 [facility] - [Mass/volume] Community in Serum or Hospital Plasma ID Date Data Source [id number] 11/15/2018 07:39:40 AM EDT [facility] Value Range Interpretation Description Data Sup porting Code Source(s) Document(s ) Magnesium 1.9 mg/dL 1.6-2.6 [facility] - [Mass/volume] Community in Serum or Hospital Plasma ID Date Data Source [id number] 11/15/2018 06:55:51 AM EDT [facility] Name Value Range Interpretation Description Data Sup porting Code Source(s) Document(s ) Leukocytes 10.4 4.8-10.6 [facility] - [#/volume] in K/uL [facility] Blood by Hospital Automated count Erythrocytes 4.64 4.70-6.0 Below low normal [facility] - [#/volume] in M/uL 0 [facility] Blood by Hospital Automated count Hemoglobin 15.2 14.0-18. [facility] - [Mass/volume] in g/dL 0 [facility] Blood [facility] Hematocrit 43.4 % 42.0-52. [facility] - [Volume 0 Community Fraction] of Hospital Blood by Automated count Erythrocyte mean 93.5 FL 81.0-94. [facility] - corpuscular 0 Community volume [Entitic Hospital volume] by Automated count Erythrocyte mean 32.8 PG 27.0-35. [facility] - corpuscular 0 [facility] [Entitic mass] by Automated count Erythrocyte mean 35.0 30.7-37. [facility] - corpuscular g/dL 3 [facility] hemoglobin Hospital concentration [Mass/volume] by Automated count Erythrocyte 14.0 % 11.5-14. [facility] - distribution 0 Community width [Ratio] by Hospital Automated count Platelets 233 K/uL 130-400 [facility] - [#/volume] in [facility] Blood by Hospital Automated count Platelet mean 9.7 FL 9.2-11.8 [facility] - volume [Entitic Community volume] in Blood Hospital by Automated count Segmented 79 % 48.0-72. Above high normal [facility] - neutrophils/100 0 Community leukocytes in Hospital Blood Lymphocytes/100 17 % 18.0-40. Below low normal [facility] - leukocytes in 0 [facility] Blood Hospital Monocytes/100 4 % 2.0-12.0 [facility] - leukocytes in [facility] Blood Hospital Eosinophils/100 0 % 0.0-7.0 [facility] - leukocytes in [facility] Blood Hospital Basophils/100 0 % 0.0-3.0 [facility] - leukocytes in [facility] Blood [facility] Segmented 8.1 K/UL 1.5-6.6 Above high normal [facility] - neutrophils Community [#/volume] in Hospital Blood Lymphocytes 1.8 K/UL 1.5-3.5 [facility] - [#/volume] in [facility] Blood Hospital Monocytes 0.5 K/UL 0.0-1.0 [facility] - [#/volume] in [facility] Blood Hospital Eosinophils 0.0 K/UL 0.0-0.7 [facility] - [#/volume] in [facility] Blood [facility] Basophils 0.0 K/UL 0.0-0.1 [facility] - [#/volume] in [facility] Differential [facility] - cell count [facility] Immature 1 % 0.0-2.0 [facility] - granulocytes/100 Community leukocytes in Hospital Blood by Automated count ID Date Data Source [id number] 11/14/2018 06:33:21 PM EDT [facility] Progress NoteMID-[facility] ,[facility].Krystian Monae MD., F.C.C.P.Stella Hamilton MD., F.C.C.P. [address] [place] [address] [place] [address] [phone]: Evelio Carlin Sex: male DOA: 11/07/2018Da te of : 1950 Age: 68 y.o. LOS: LOS: 6 daysSubjective:Mr. Gayla beltran is a 68 y.o. year old male who is being seen for BILATERALASPIRATION PNEUMONIA , DYSPHAGIA , HE IS MORE AWAKE AND COMFORTABLE . COUGH IS MINIMAL . he is More awake a ns Comfortable dr KAYE NOTES NOTED. Objective:Vital Signs:Siri ent Vitals for the past 24 hrs: BP Temp Pulse Resp [id number]/14/18 1524 128/82 98 F (36. 7 C) 98 20 -11/14/18 0827 134/88 98.1 F (36.7 C) 100 20 (!) 88 %11/14/18 0412 1 26/ 97.9 F (36.6 C) 69 20 95 %11/13/18 2035 - - - - 95 %11/13/18 1925 (!) 144/9 3 97.8 F (36.6 C) 85 20 94 %Pulse OX:SpO2 Readings from Last 6 Encounters:11/14/18 (!) 88%09/26/15 96%@LASTSAO2(6)@Physical Exam:NON VERBAL , LOOKS MORE AWAKE . General: Alert, cooperative, no distress, appears stated age. Head: Normocephalic, without obvious abnormality, atraumatic. Eyes : Conjunctivae/corneas clear. PERRL, EOMs intact. Nose: Nares normal. No drainage or sinus tenderness Throat: Lips, mucosa, and tongue jazzmine l Neck: Supple, symmetrical, trachea midline, no adenopathy,thyroid: no enlargement/tenderness/nodules, no carotid bruit and no JVD. Elham ngs: BASAL RALES +, , AIR EXCHANGE IS BETTER to auscultationbilaterally. Ches t Wall: No tenderness or deformity. Heart: Regular rate and rhythm, S1, S2 normal, no murmur, click,rub or gallop. Abdomen: Soft, non-tender. Bowel soun ds normal. No masses, No organomegaly. Extremities: Extremities normal, atrau matic, no cyanosis or edema. Pulses: 4+ bilaterally. Skin: Ski n color, texture, turgor normal. No rashes or lesions. Neurologic: CNII-XII intact. No focal motor or sensory deficit.Intake and Output:Last three shifts: No intake/out put data recorded.Lab Results:Recent Results (from the past 24 hour(s))MAGNESIUM Manuel ection Time: 11/14/18 5:33 AMResult Value Ref Range Magnesium 1.9 1.6 - 2.6 mg/dLP HOSPHORUS Collection Time: 11/14/18 5:33 AMResult Value Ref Range Phosphorus 3.1 2.5 - 4.9 mg/dLMETABOLIC PANEL, COMPREHENSIVE Collection Time: 11/14/18 5:33 AMResult Value Ref Range Sodium 139 136 - 145 mmol/L Potassium 4.2 3.5 - 5.1 mmol/L Chloride 103 98 - 107 mmol/L CO2 26 21 - 32 mmol/L Anion gap 14 10 - 20 mmol/L Glucose 85 7 4 - 106 mg/dL BUN 14 7 - 18 mg/dL Creatinine 0.46 (L) 0.70 - 1.30 mg/dL GFR est AA >6 0 >60 ml/min/1.73m2 GFR est non-AA >60 >60 ml/min/1.73m2 Calcium 9.1 8.5 - 10.1 mg/ dL Bilirubin, total 0.7 0.2 - 1.0 mg/dL ALT (SGPT) 34 13 - 61 U/L AST (SGOT) 25 15 - 37 U/L Alk. phosphatase 44 (L) 45 - 117 U/L Protein, total 6.1 (L) 6.4 - 8.2 g/dL Al bumin 2.9 (L) 3.5 - 4.7 g/dL Globulin 3.2 1.7 - 4.7 g/dL A-G Ratio 0.9 0.7 - 2.8CBC WI TH AUTOMATED DIFF Collection Time: 11/14/18 5:33 AMResult Value Ref Range WBC 11.0 ( H) 4.8 - 10.6 K/uL RBC 4.80 4.70 - 6.00 M/uL HGB 15.8 14.0 - 18.0 g/dL HCT 43.9 42.0 - 52.0 % MCV 91.5 81.0 - 94.0 FL MCH 32.9 27.0 - 35.0 PG MCHC 36.0 30.7 - 37.3 g/d L RDW 13.8 11.5 - 14.0 % PLATELET 251 130 - 400 K/uL MPV 9.6 9.2 - 11.8 FL NEUTROPHI LS 75 (H) 48.0 - 72.0 % LYMPHOCYTES 18 18.0 - 40.0 % MONOCYTES 7 2.0 - 12.0 % EOSINOPH ILS 0 0.0 - 7.0 % BASOPHILS 0 0.0 - 3.0 % ABS. NEUTROPHILS 8.2 (H) 1.5 - 6.6 K/UL ABS. LYMPHOCYTES 2.0 1.5 - 3.5 K/UL ABS. MONOCYTES 0.7 0.0 - 1.0 K/UL ABS. EOSINO PHILS 0.0 0.0 - 0.7 K/UL ABS. BASOPHILS 0.0 0.0 - 0.1 K/UL DF AUTOMATED IMMATURE GRA NULOCYTES 1 0.0 - 2.0 %ABG:No results for input(s): PH, PCO2, PO2, HCO3, FIO2 in t he last 72 hours.Recent Glucose Results:Lab ResultsComponent Value Date/Time GLU 85 11/14/2018 05:33 AM@LABAPCYTOINTERPRETATION@[facility] Results Procedure Component Value Units Date/Time CULTURE, BLOOD [[id number]] Col lected: 11/07/181999 Order Status: Completed Specimen: Blood Updated: 640 Special Requests: NO SPECIAL REQUESTS Culture result: NO GROWTH 5 DA YS CULTURE, BLOOD [[id number]] Collected: 11/07/182009 Order Status: Completed S pecimen: Blood Updated: 11/12/18640 Special Requests: NO SPECIAL REQUESTS C ulture result: NO GROWTH 5 DAYS STREP PNEUMO AG, URINE [[id number]] Collected: 0700 Order Status: Completed Specimen: Other from Urine, random Updated: 11/09 Strep pneumo Ag, urine NEGATIVE Comment:Presumptive negative suggests no current or recent pneumococcal infection.Infection due to S.pneumonia c annot beruled out since the antigen presentin the sample may be below the detectionlim it of the test. This test is notintended as a substitute for gram stainand bacterial c ulture Method IMMUNOCHROMATOGRAPHIC MEMBRANE ASSAY LEGIONELLA PNEUMOPHILA AG , URINE [[id number]] Collected: 11/08/18 1145 Order Status: Completed Specimen: Urin e Updated: 11/09/18 1048 Legionella Ag, urine NEGATIVE Comment:PRESUMPTIVE NEGA TIVE forL.pneumophila Serogroup 1Antigen in urine,suggestingno recent or current inf ection.Infection due to Legionellacannot be ruled out since otherserogroups and spec ies may causedisease,antigen may not bepresent in urine in earlyinfection, an d the level ofantigen present in the urinemay be below the detectionlimit of the test. Method IMMUNOCHROMATOGRAPHIC MEMBRANE ASSAY CULTURE, URINE [[id number]] Collect ed: 11/07/18 1930 Order Status: Canceled Specimen: Urine from Clean catchImages: @IMAGESENCORD@Cta Chest W Or W Wo ContResult Date: 11/08/2018Examination: CTA Chest ? PE angiography History: Hypoxia; rule out pneumoniaversus pulmonary embolism Prior s: None Technique: Low-dose, multiplanar,helical CTA chest was perfor med with bolus IV injection from lung apices tobases. 3D-reformatted images were obt ained and reviewed on a dedicated viewingworkstation and directly supervis ed. Contrast: A total of 71 mL of Isovue-370was administered intravenously for this procedure. Findings: No evidence ofpulmonary embolism is seen. There is d ecreased size of the right hemithorax fromchronic scarring and retraction with mediastinal shift left to right.Additional area of consolidation is seen in the rig ht lower lobe and suggestssuperimposed pneumonia with subsegmental atelectasis. Subsegmental atelectasisis also noted in the left lung base, with pleural parench ymal scarring. Lowlung volumes are seen. No pneumothorax seen. Aorta normal in calib er withoutaneurysm or dissection. Mediastinum no adenopathy. Mediastinal shift is see n inthe left and right as a result of chronic changes in the right hemithorax. Heart shows no chamber enlargement or pericardial effusion. No acute fractures seen in the bony thorax, sternum, manubrium and rib cage. Multiple compressiondefor mities are seen in the mid and lower thoracic spine, with superimposedspondyloarthropa thy. Cannot exclude acute fracture.Impression: No evidence of pul monary embolism Right lower lobe pneumoniasuggested. Incidental scarring and retraction in the right hemithorax fromremote/chronic inflammatory disease and/or trauma. Bibasilar subsegmentalatelectasis. Report Electron ically Signed By: Pawel Zafar M.D. -11/08/2018 12:40 AMXr Chest PortResult D ate: 11/07/2018XR CHEST PORT CLINICAL INDICATION PROVIDED:. "sob." COMPARISON: . 09/26/2015.FINDINGS:. The pericardial/cardiac silhouette is enlarg ed in the transversedimension. There is no pulmonary vascular congestion or interst itial edema.Linear density in the left lung base and faint densities in the right mi d tolower lung likely represent atelectasis. There is no lobar consolidation oreffusi on. There is no pneumothorax.IMPRESSION:. Bilateral lower lung atelectasis. No donna dence of consolidation oreffusion.Medications:Current Facility- Administered MedicationsMedication Dose Route Frequency albuterol-ipratropium (DUO-NE B) 2.5 MG-0.5 MG/3 ML 3 mL Nebulization Q6HWA RT LORazepam (ATIVAN) injection 0 .5 mg 0.5 mg IntraVENous QHS valproate (DEPACON) 250 mg in 0.9% sodium chloride 50 mL IVPB 250 mgIntraVENous Q12H methylPREDNISolone (PF) (SOLU-MEDROL) in jection 20 mg 20 mg IntraVENous Q12H 0.9% sodium chloride 1,000 mL with mvi, adult no.4 with vit K 10 mL, [id number] mg, folic acid 1 mg infusion IntraVENous Q24H d extrose 5 % - 0.45% NaCl infusion 50 mL/hr IntraVENous CONTINUOUS heparin (porcine ) injection 5,000 Units 5,000 Units SubCUTAneous Q12H albuterol-ipratropium (DUO-NEB) 2.5 MG-0.5 MG/3 ML 3 mL Nebulization Q4H PRN cinacalcet (SENSIP AR) tablet 60 mg 60 mg Oral DAILY ALPRAZolam (XANAX) tablet 0.25 mg 0.25 mg Oral DAILY cefTRIAXone (ROCEPHIN) 1 g in 0.9% sodium chloride (MBP/ADV) 50 mL MBP 1 gIntraVENous Q24H azithromycin (ZITHROMAX) 500 mg in 0.9% sodium chlori de 250 mL IVPB 500 mgIntraVENous Q24H budesonide (PULMICORT) 500 mcg/2 ml nebu lizer suspension 500 mcg NebulizationBID RTActive Problems: COPD (chronic obstru ctive pulmonary disease) ([facility]) (11/08/2018) Acute respiratory distress (11/08/2018) Pneumonia (11/08/2018) COPD exacerbation ([facility]) (11/08/2018)Assessment:COPD (chroni c obstructive pulmonary disease) ([facility]) (11/08/2018) Acute respiratory distress (11/08/2018) Pneumonia (11/08/2018) COPD exacerbation ([facility]) (11/08/2018) Acute r david failure combined, pneumonia R L L AND L L L ON CAT SCAN CHEST acute copd exacer bation P .. E . ruled out. BILATERAL BASAL ATELECTASESPLAN,Monitoring,Iv CEFTRIA XONE AND AZITHROMYCIN D/C Steroids, BRONCHOSPASM RESOLVEDbipap prn [facility] QIDD/W nursing staff.PATIENT MAY NEED P E G OR JEJUNOSTOMY PER DR KAYE . Krystian Monae MD F.C.C.P.November 14, 20186:25 PM Name Value Range Interpretation Code Description Data [facility](s) Supporting Document(s ) ID Date Data Source [id number] 11/14/2018 02:17:28 PM EDT [facility] Echo completed Name Value Range Interpretation Code Description Data [facility](s) Supporting Document(s ) ID Date Data Source [id number] 11/14/2018 02:11:19 PM EDT [facility] Coverage for Dr Sheriff NotePatie nt: Evelio Carlin CSN: [id number] of : 1950 Ag e: 68 y.o. Sex: maleDOA: 11/07/2018Requesting Physician: Dr Longo:Evelio munoz is a 68 y.o. male who I have been asked to see for surgicalfeeding tube.Patient was admitted for exacerbation of COPD and it is unclear how patient wastaking oral intak e prior to admission. The EHR indicates that the pt was on theschedule for a surgical feeding tube in September 2018 but was cancelled forpulmonary problems. GI consult indica tasha that the anatomy for PEG is not optimalbecause stomach is lying behind t he heart and therefore an endoscopic feedingtube can not be performed. This i s the reason for a consultation. His medicalproblems include COPD, GERD, hype rparathyroidism, mental retardation, Pneumonia,pulmonary embolism, and schizo phrenia who presented to the ED via EMS forshortness of breath and wheezing. 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 No pertinent surgical history.History reviewed. No pertinent family history.So cial HistorySocioeconomic History Marital status: SINGLE Spouse name: Not on file Number of children: Not on file Years of education: Not on file Highest educatio n level: Not on fileTobacco Use Smoking status: Never Smoker Smokeless tobacco: Never UsedSubstance and Sexual Activity Alcohol use: No Drug use: NoPrior to Ad mission medicationsMedication Sig Start Date End Date Taking? Authorizing Providermul tivitamin (ONE A DAY) tablet Take 1 Tab by mouth daily. Yes Provider,Historicalcl orazepate (TRANXENE) 3.75 mg tablet Take by mouth nightly. Yes Provider,Historical albuterol-ipratropium (DUO-NEB) 2.5 mg-0.5 mg/3 ml nebu 3 mL by Nebulizationroute e very six (6) hours as needed. Yes Provider, HistoricallamoTRIgine (LAMICTAL) 25 mg t ablet Take 50 mg by mouth two (2) times a day.Yes Provider, Historicalcinacalcet ( SENSIPAR) 30 mg tablet Take 60 mg by mouth daily. Yes Provider,Historicalvalproat e (DEPAKENE) 250 mg/5 mL syrup Take 750 mg by mouth two (2) times a day.Provider, Jazmine Thao Known AllergiesReview of Systems NOT OBTAINABLEPhysical Exam:Visit VitalsBP 1 34/88 (BP 1 Location: Left arm, BP Patient Position: At rest)Pulse 100Temp 98.1 F (36.7 C)Resp 20Ht 5' 2" (1.575 m)Wt 59.1 kg (130 lb 6.4 oz)SpO2 (!) 88%BMI 23.85 kg/ m O2 Flow Rate (L/min): 3 l/min O2 Device: Room airTemp (24hrs), Av.9 F (36.6 C), Min:97.8 F (36.6 C), Max:98.1 F (36.7 C)General: Alert, cooperative, no distr ess, appears stated age.Head: Normocephalic, without obvious abnormality, atraumatic. Eyes: Conjunctivae/corneas clear. PERRL, EOMs intact.Nose: Nares normal. No drain age or sinus tenderness.Throat: Lips, mucosa, and tongue normal.Neck: Supple, symmetri inez, trachea midline, no adenopathy, thyroid: noenlargement/tenderness/nodules, no car otid bruit and no JVD. SEVERE KYPHOSISLungs: Clear to auscultation bilaterally.Chest wall: No tenderness or deformity.Heart: Regular rate and rhythm, S1, S2 normal, no murmur, click, rub or gallop. Abdomen: Soft, non-tender. Bowel sounds normal. N o masses, No organomegaly.Short distance xyphoid to umbilicusExtremities: Extremi ties normal, atraumatic, no cyanosis or edema.Pulses: 2+ and symmetric all extre mities.Skin: Skin color, texture, turgor normal. No rashes or lesionsLabs Reviewe d:CMP:Lab ResultsComponent Value Date/Time NA 139 11/14/2018 05:33 AM K 4.2 11/14/2018 05:33 AM CL 103 11/14/2018 05:33 AM CO2 26 11/14/2018 05:33 AM AGAP 14 11/14/2018 0 5:33 AM GLU 85 11/14/2018 05:33 AM BUN 14 11/14/2018 05:33 AM CREA 0.46 (L) 2018 05:33 AM GFRAA >60 11/14/2018 05:33 AM GFRNA >60 11/14/2018 05:33 AM CA 9.1 05/2018 05:33 AM MG 1.9 11/14/2018 05:33 AM PHOS 3.1 11/14/2018 05:33 AM ALB 2.9 (L) 11/14/2018 05:33 AM TP 6.1 (L) 11/14/2018 05:33 AM GLOB 3.2 11/14/2018 05:33 AM AG RAT 0.9 11/14/2018 05:33 AM SGOT 25 11/14/2018 05:33 AM ALT 34 11/14/2018 05 :33 AMCBC:Lab ResultsComponent Value Date/Time WBC 11.0 (H) 11/14/2018 05:33 AM HGB 15.8 11/14/2018 05:33 AM HCT 43.9 11/14/2018 05:33 AM PLT 251 11/14/2018 0 5:33 AMCOAGS: No results found for: APTT, PTP, INRCXR : Left mary diaphragm very h igh,AssessmentActive Problems: COPD (chronic obstructive pulmonary disease) (HCC) () Acute respiratory distress (11/08/2018) Pneumonia (11/08/2018) COPD exacerbation (HCC) (11/08/2018)Medical Decision Making and RecommendationPatien t needs to be medically cleared for general anesthesiaWill discuss with Dr Lea evidence for paraesophageal hiatal hernia, however because the lefthemidiaphragm is elevated the stomach and duodenum are at the level of the chestand a gastrostomy tube may not be able to be performed and the next option wouldbe a tube jejunostomy.Consen t needs to be obtained from responsible agent after informed discussion.Every effort s hould be made to bring patient back to oral intake status.He is presently on steroid s making him immunocompromised and at higher riskLetty Kaye, [facility] 2018 Name Value Range Interpretation Code Description Data Harriett rce(s) Supporting Document(s ) ID Date Data Source [id number] 11/14/2018 12:53:40 PM EDT [facility] Progress NotePatient: Evelio Carlin Sex: male DOA: 11/07/2018Date of : 1950 Age: 68 y.o. :[id number]:Reyes Carlin is 68 y.o. male . who presented with hypoxia, O2 SAT 84 % onra, respirat ory distress, COPD and Pneumonia.He is pulling off his O2 NC. Placed on Mitts r estraints.Pt was restless overnight, given iv ativan 0.5 mg with improvement.He failed the swallow re nafisaalHe has medical history of COPD, requiring intermittent O2 NC, L arge HiatalHernia, GERD,Aspiration Pneumonia, Dysphagia,Parkinson disease, epilepsy,(f ocal) ,(partial) idiopathic epilepsy, not intractable. Severe Intellectualdisabili ty, Hyperparathyroid, unspecified, personal h/o pulmonary embolus,Anxiety disorder, Kyphosis and Schizophrenia.He was admitted with encounter diag of Acute Hypercapnia , Hypoxia respiratoryfailure, Metabolic acidosis, Pneumonia RLL, and Acute COPD exacerbation. Also,diagnosis of seizure, large hiatal hernia, dysphagia, gerd, se arron intellectualdisability. The patient is non verbal and unable to provide history . The patientwas seen and examined at bedside on 11/11/18. 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 Pupils are equalNeck : Supple, symmetrical, no adenopathy, no carotid bruit and no JVD.Back: Symmet rodger, No CVA tenderness.Lungs: Clear to auscultation bilaterally. No Wheezing o r Rhonchi. No rales.Chest wall: No Accessory muscle use.Heart: Regular ra te and rhythm, no murmur, or rubAbdomen: Soft, non-tender. Not distended. Bowel sounds normal. No massesExtremities: Extremities normal, atraumatic, No cyano sis. No edema. No clubbingSkin: Texture, turgor normal. No rashes or lesions. No t JaundicedLymph nodes: Cervical, supraclavicular normal.Psych: Not agita tedNeurologic: Non verbalIntake and Output:Current Shift: 11/14 700 - 2 1900In: 100 [I.V.:100]Out: -Last three shifts: No intake/output data recorded. Lab/Data Reviewed:Recent Days:Result Value Ref Range Sodium 142 136 - 145 mmol/L Potassium 3.8 3.5 - 5.1 mmol/L Chloride 104 98 - 107 mmol/L CO2 28 21 - 32 mmol/L Anion gap 14 10 - 20 mmol/L Glucose 79 74 - 106 mg/dL BUN 15 7 - 18 mg/dL Creatini ne 0.49 (L) 0.70 - 1.30 mg/dL GFR est AA >60 >60 ml/min/1.73m2 GFR est non-AA >60 >6 0 ml/min/1.73m2 Calcium 9.0 8.5 - 10.1 mg/dL Bilirubin, total 0.6 0.2 - 1.0 mg/dL A LT (SGPT) 30 13 - 61 U/L AST (SGOT) 43 (H) 15 - 37 U/L Alk. phosphatase 51 45 - 11 7 U/L Protein, total 6.8 6.4 - 8.2 g/dL Albumin 3.2 (L) 3.5 - 4.7 g/dL Globulin 3.6 1.7 - 4.7 g/dL A-G Ratio 0.9 0.7 - 2.8MAGNESIUM Collection Time: 11/12/18 7:20 AMResult Value Ref Range Magnesium 1.8 1.6 - 2.6 mg/dLCBC WITH AUTOMATED DIFF Collection Time: 11/12/18 7:20 AMResult Value Ref Range WBC 11.7 (H) 4.8 - 10.6 K/uL RBC 4.61 (L) 4.70 - 6.00 M/uL HGB 14.9 14.0 - 18.0 g/dL HCT 43.4 42.0 - 5 2.0 % MCV 94.1 (H) 81.0 - 94.0 FL MCH 32.3 27.0 - 35.0 PG MCHC 34.3 30.7 - 37.3 g/ dL RDW 13.8 11.5 - 14.0 % PLATELET 238 130 - 400 K/uL MPV 9.7 9.2 - 11.8 FL NEUTR OPHILS 79 (H) 48.0 - 72.0 % LYMPHOCYTES 13 (L) 18.0 - 40.0 % MONOCYTES 8 2.0 - 12. 0 % EOSINOPHILS 0 0.0 - 7.0 % BASOPHILS 0 0.0 - 3.0 % ABS. NEUTROPHILS 9.2 (H) 1. 5 - 6.6 K/UL ABS. LYMPHOCYTES 1.6 1.5 - 3.5 K/UL ABS. MONOCYTES 0.9 0.0 - 1.0 K/UL ABS. EOSINOPHILS 0.0 0.0 - 0.7 K/UL ABS. BASOPHILS 0.0 0.0 - 0.1 K/UL DF AUTOMAT ED IMMATURE GRANULOCYTES 1 0.0 - 2.0 %PHOSPHORUS Collection Time: 11/12/18 7:20 AMResult Value Ref Range Phosphorus 2.9 2.5 - 4.9 mg/dLLACTIC ACID Collection T jose alejandro: 11/12/18 7:20 AMResult Value Ref Range Lactic acid 0.9 0.4 - 2.0 MMOL/LNo resul ts for input(s): PH, PCO2, PO2, HCO3, FIO2 in the last 72 hours.Cta Chest W Or W Wo Co ntResult Date: 11/08/2018Examination: CTA Chest ? PE angiography History: Hypoxia; rule out pneumoniaversus pulmonary embolism Priors: None Technique: Low-dose, mult iplanar,helical CTA chest was performed with bolus IV injection from lung apices tob ases. 3D-reformatted images were obtained and reviewed on a dedicated viewingworks tation and directly supervised. Contrast: A total of 71 mL of Isovue-370was administ ered intravenously for this procedure. Findings: No evidence ofpulmonary emboli sm is seen. There is decreased size of the right hemithorax fromchronic scarring an d retraction with mediastinal shift left to right.Additional area of consolidation i s seen in the right lower lobe and suggestssuperimposed pneumonia with subs egmental atelectasis. Subsegmental atelectasisis also noted in the left jorge g base, with pleural parenchymal scarring. Lowlung volumes are seen. No pneumothora x seen. Aorta normal in caliber withoutaneurysm or dissection. Mediastin um no adenopathy. Mediastinal shift is seen inthe left and right as a result of chr onic changes in the right hemithorax.Heart shows no chamber enlargement or pericard ial effusion. No acute fracturesseen in the bony thorax, sternum, manubrium and rib cage. Multiple compressiondeformities are seen in the mid and lower thoracic spine , with superimposedspondyloarthropathy. Cannot exclude acute fracture.Impression : No evidence of pulmonary embolism Right lower lobe pneumoniasuggested. Incidenta l scarring and retraction in the right hemithorax fromremote/chronic inflammato ry disease and/or trauma. Bibasilar subsegmentalatelectasis. Report Electron ically Signed By: Pawel Zafar M.D. -11/08/2018 12:40 AMXr Chest PortResult D ate: 11/07/2018XR CHEST PORT CLINICAL INDICATION PROVIDED:. "sob." COMPARISON: . 09/26/2015.FINDINGS:. The pericardial/cardiac silhouette is enlarg ed in the transversedimension. There is no pulmonary vascular congestion or interst itial edema.Linear density in the left lung base and faint densities in the right mi d tolower lung likely represent atelectasis. There is no lobar consolidation oreffusi on. There is no pneumothorax.IMPRESSION:. Bilateral lower lung atelectasis. No donna dence of consolidation oreffusion.Medications reviewedCurrent Facility-Administered Me dicationsMedication Dose Route Frequency albuterol-ipratropium (DUO-NEB) 2.5 MG-0 .5 MG/3 ML 3 mL Nebulization Q6HWA RT LORazepam (ATIVAN) injection 0.5 mg 0.5 mg IntraVENous QHS valproate (DEPACON) 250 mg in 0.9% sodium chloride 50 mL IVPB 2 50 mgIntraVENous Q12H methylPREDNISolone (PF) (SOLU-MEDROL) injection 20 mg 20 m g IntraVENous Q12H 0.9% sodium chloride 1,000 mL with mvi, adult no.4 with vit K 10 mL, [id number] mg, folic acid 1 mg infusion IntraVENous Q24H dextrose 5 % - 0.45% NaCl infusion 50 mL/hr IntraVENous CONTINUOUS heparin (porcine) injection 5,000 Units 5,000 Units SubCUTAneous Q12H albuterol-ipratropium (DUO-NEB) 2.5 MG-0 .5 MG/3 ML 3 mL Nebulization Q4H PRN cinacalcet (SENSIPAR) tablet 60 mg 60 m g Oral DAILY ALPRAZolam (XANAX) tablet 0.25 mg 0.25 mg Oral DAILY cefTRIAXone (FEDE EPHIN) 1 g in 0.9% sodium chloride (MBP/ADV) 50 mL MBP 1 gIntraVENous Q24H azithrom ycin (ZITHROMAX) 500 mg in 0.9% sodium chloride 250 mL IVPB 500 mgIntraVENous Q24H budesonide (PULMICORT) 500 mcg/2 ml nebulizer suspension 500 mcg Nebulizati onBID RTAssessment/Plan:Hospital Problems Never Reviewed Codes Class Noted P OA COPD (chronic obstructive pulmonary disease) ([facility]) ICD-10-CM: J44.9ICD-9-CM: 496 11/08/2018 Unknown Acute respiratory distress ICD-10-CM: R06.03ICD-9-CM: 518. 82 11/08/2018 Unknown Pneumonia ICD-10-CM: J18.9ICD-9-CM: 486 11/08/2018 Unknown CO PD exacerbation ([facility]) ICD-10-CM: J44.1ICD-9-CM: 491.21 11/08/2018 Unknown Assessment:Acute Hypercapnia, Hypoxic respiratory failureMetabolic acidosis- r esolvingPneumoniaAcute COPD exacerbationSeizureH/O Large Hiatal Arpit iaGERDLeukocytosis likely steroid inducedSevere intellectual disabilityAnx iety DisorderChronic Schizophrenia- Unspecified Plan:Cont O2NC/Bipap per pul mIV fluids steroids taper per pulmnebulitersSwallow re evalCont iv zit hro and rocephinF/u culturesdvt prophylaxis with heparin subcutStart iv fluids w mvi , folic acid, thiamineNGT insertionD/w pt uncle (ENT physician) per report , who i s request ngt insertion forNutrition.Renae Gonzalez 2018Time: 12:24 PM Name Value Range Interpretation Code Description Data Harriett rce(s) Supporting Document(s ) ID Date Data Source [id number] 11/14/2018 12:23:15 PM EDT [facility] Progress NotePatient: Evelio Carlin Sex: male DOA: 11/07/2018Date of : 1950 Age: 68 y.o. :[id number]:Reyes Carlin is 68 y.o. male who presented with hypoxia, O2 SAT 84 % on ra,respirat ory distress, COPD and Pneumonia.He is pulling off his O2 NC. Placed on Mitts r estraints.Pt was restless overnight, given iv ativan 0.5 mg with improvement.He failed the swallow evaluationHe has medical history of COPD, requiring intermittent O2 NC, Large HiatalHernia, GERD,Aspiration Pneumonia, Dysphagia,Parkinson disease, epilepsy,(focal) ,(partial) idiopathic epilepsy, not intractable. Severe Intell ectualdisability, Hyperparathyroid, unspecified, personal h/o pulmonary embo aspen,Anxiety disorder, Kyphosis and Schizophrenia.[facility] diag of Acute Hypercapnia, Hypoxia respiratoryfailure, Metabolic acidosis, Pneumonia RLL, and Acute COPD exacerbation. Also,diagnosis of seizure, large hiatal hernia, dysphagia, gerd, severe intellectualdisability. 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 Pupils are equalNeck: Supple, symmetrical, no adenopathy, no carotid bruit and no JVD.Lungs: Clear to auscultation bilaterally. No Wheezing or Rhonchi. No rales.Chest wall: No tenderness or deformity. No Accessory muscle use.Heart : Regular rate and rhythm, no murmur, or rubAbdomen: Soft, non-tender. Not dist ended. Bowel sounds normal. No massesExtremities: Extremities normal, a traumatic, No cyanosis. No edema. No clubbingSkin: Texture, turgor normal . No rashes or lesions. Not JaundicedLymph nodes: Cervical, supraclavicular normal. Psych: Not currently agitatedNeurologic: Non verbalIntake and Output:Current Shift: 11/14 700 - 11/14 1899In: 50 [I.V.:50]Out: -Last three shifts: No intake/output da ta recorded.Lab/Data Reviewed:Recent Days:Labs:Recent Labs 11/08/1906WBC 14.4* 17.0* 10.3 6.6HGB 13.5* 14.0 13.9* 15.5P LT 227 204 195 193BUN 17 15 -- 15CREA 0.55* 0.50* -- 0.71SGOT 25 17 -- 15AP 46 4 6 -- 72TBILI 0.3 0.4 -- 0.1* Cultures:Lab ResultsComponent Value Date /Time Culture result: NO GROWTH 3 DAYS 11/07/2018 08:10 PM Culture result: NO GROWTH 3 DAYS 11/07/2018 08:00 PMNo results for input(s): PH, PCO2, PO2, HCO3, FIO2 in the last 72 hours.Cta Chest W Or W Wo ContResult Date: 11/08/2018Examination: CTA Chest ? PE angiography History: Hypoxia; rule out pneumoniaversus pulmonary embol ism Priors: None Technique: Low-dose, multiplanar,helical CTA chest was perfor med with bolus IV injection from lung apices tobases. 3D-reformatted images were obt ained and reviewed on a dedicated viewingworkstation and directly supervis ed. Contrast: A total of 71 mL of Isovue-370was administered intravenously for this procedure. Findings: No evidence ofpulmonary embolism is seen. There is d ecreased size of the right hemithorax fromchronic scarring and retraction with mediastinal shift left to right.Additional area of consolidation is seen in the rig ht lower lobe and suggestssuperimposed pneumonia with subsegmental atelectasis. Subsegmental atelectasisis also noted in the left lung base, with pleural parench ymal scarring. Lowlung volumes are seen. No pneumothorax seen. Aorta normal in calib er withoutaneurysm or dissection. Mediastinum no adenopathy. Mediastinal shift is see n inthe left and right as a result of chronic changes in the right hemithorax. Heart shows no chamber enlargement or pericardial effusion. No acute fractures seen in the bony thorax, sternum, manubrium and rib cage. Multiple compressiondefor mities are seen in the mid and lower thoracic spine, with superimposedspondyloarthropa thy. Cannot exclude acute fracture.Impression: No evidence of pul monary embolism Right lower lobe pneumoniasuggested. Incidental scarring and retraction in the right hemithorax fromremote/chronic inflammatory disease and/or trauma. Bibasilar subsegmentalatelectasis. Report Electron ically Signed By: Pawel Zafar M.D. -11/08/2018 12:40 AMXr Chest PortResult D ate: 11/07/2018XR CHEST PORT CLINICAL INDICATION PROVIDED:. "sob." COMPARISON: . 09/26/2015.FINDINGS:. The pericardial/cardiac silhouette is enlarg ed in the transversedimension. There is no pulmonary vascular congestion or interst itial edema.Linear density in the left lung base and faint densities in the right mi d tolower lung likely represent atelectasis. There is no lobar consolidation oreffusi on. There is no pneumothorax.IMPRESSION:. Bilateral lower lung atelectasis. No donna dence of consolidation oreffusion.Medications reviewedCurrent Facility-Administered Me dicationsMedication Dose Route Frequency albuterol-ipratropium (DUO-NEB) 2.5 MG-0 .5 MG/3 ML 3 mL Nebulization Q6HWA RT LORazepam (ATIVAN) injection 0.5 mg 0.5 mg IntraVENous QHS valproate (DEPACON) 250 mg in 0.9% sodium chloride 50 mL IVPB 2 50 mgIntraVENous Q12H methylPREDNISolone (PF) (SOLU-MEDROL) injection 20 mg 20 m g IntraVENous Q12H 0.9% sodium chloride 1,000 mL with mvi, adult no.4 with vit K 10 mL, [id number] mg, folic acid 1 mg infusion IntraVENous Q24H dextrose 5 % - 0.45% NaCl infusion 50 mL/hr IntraVENous CONTINUOUS heparin (porcine) injection 5,000 Units 5,000 Units SubCUTAneous Q12H albuterol-ipratropium (DUO-NEB) 2.5 MG-0 .5 MG/3 ML 3 mL Nebulization Q4H PRN cinacalcet (SENSIPAR) tablet 60 mg 60 m g Oral DAILY ALPRAZolam (XANAX) tablet 0.25 mg 0.25 mg Oral DAILY cefTRIAXone (FEDE EPHIN) 1 g in 0.9% sodium chloride (MBP/ADV) 50 mL MBP 1 gIntraVENous Q24H azithrom ycin (ZITHROMAX) 500 mg in 0.9% sodium chloride 250 mL IVPB 500 mgIntraVENous Q24H budesonide (PULMICORT) 500 mcg/2 ml nebulizer suspension 500 mcg Nebulizati onBID RTAssessment/Plan:Hospital Problems Never Reviewed Codes Class Noted P OA COPD (chronic obstructive pulmonary disease) (HCC) ICD-10-CM: J44.9ICD-9-CM: 496 11/08/2018 Unknown Acute respiratory distress ICD-10-CM: R06.03ICD-9-CM: 518. 82 11/08/2018 Unknown Pneumonia ICD-10-CM: J18.9ICD-9-CM: 486 11/08/2018 Unknown CO PD exacerbation (HCC) ICD-10-CM: J44.1ICD-9-CM: 491.21 11/08/2018 Unknown Assessment:Acute Hypercapnia, Hypoxic respiratory failureMetabolic acidosis- r esolvingPneumoniaAcute COPD exacerbationSeizureH/O Large Hiatal Arpit iaGERDLeukocytosis likely steroid inducedSevere intellectual disabilityAnx iety DisorderChronic Schizophrenia- UnspecifiedPlan:Cont O2NC/Bipap per pulm IV fluidsIv steroidsnebulitersSwallow re evalCont iv zithro and rocephinF/u cultu resdvt prophylaxis with heparin subcutShiRenae Harris 2018Time: 11:52 AM Name Value Range Interpretation Code Description Data [facility] Supporting Document(s ) ID Date Data Source [id number] 11/14/2018 12:01:36 PM EDT [facility] Problem: Pneumonia: Discharge OutcomesGo al: *Demonstrates progressive activityOutcome: Not Progressing Towards GoalVariance Patient ConditionImpact: ModerateNote:Pt unable to get out of bed or change position on his ownGoal: *Describes follow-up/return visits to ysiciansOutcome: Not Progressing Towards GoalVariance Patient ConditionImpact: Mo derateNote:Pt unable to follow commands, make needs known, or express an understanding offollow-up visitsGoal: *Tolerating dietOutcome: Not Progressing Towards Goa lVariance Patient ConditionImpact: HighNote:Pt is NPO. Awaiting surgery con sult for feeding tube Name Value Range Interpretation Code Description Data [facility] Hospit[facility]) Supporting Document(s ) ID Date Data Source [id number] 11/14/2018 11:49:04 AM EDT [facility] Progress NotePatient: Evelio Carlin Sex: male DOA: 11/07/2018Date of : 1950 Age: 68 y.o. :[id number] Chief Com plaint: Respiratory DistressSubjective:Evelio Carlin is 68 y.o. male who was admitted on 11/07/18 by the hospitalistservice. 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 Severe Intelle ctual disability, Hyperparathyroid, unspecified,personal h/o pulmonary embol us, Anxiety disorder, Kyphosis and Schizophrenia.He was transferred from [facility] for further evaluation and treatment. The facilitytransfer record reporting that maximo izquierdo had wheezing, frequent non productivemoist cough and using accessor y muscles. He had an O2 SAT of 84 % on room airand improved O2 SAT of 92 % on 4 LPM. He was given Duoneb and Solu-Medrol 40 mgIM at the long-term. The staff reporting that unable to maintain adequate P8Dwudnbrpho due to patient removing his nasal canula.In the ED, the patient was placed on BIPAP.ED evaluations included CTA chest which was neg for pulmonary embolism. There isdecreased size of the right hemithorax from chronic scarring and retraction withmediastinal shift left to right. Additional area of consolidation is seen inthe RLL and suggests superimposed pneumonia with subsegmental atelectasis. Lowlung volumes are seen. No pntx.seen. Also findings of multiple compressiondeformities are seen in the m id and lower thoracic spine, with superimposedspondyloarthropathy. Cannot exclude acute fracture.Labs were remarkable for Lactic acidosis, with initial lactic acid level 2.5,with Increasing levels on repeat to 4.1, then trending downward. A BG showed apH 7.41/73/77/46/97 O2 SAT on O2 NC 2L. Troponin negative.The patient was admitted with encounter diagnosis of COPD exacerbation andPneumonia.He was seen an d examined at bedside on 11/09/18. He is lethargic, but arousable.He is wearing O 2 NC. The patient is nonverbal and unable to provide a history.He has h/o recurrent a spiration pneumonia and Anorexia with weight loss. About2 yrs ago, there were plans fora peg placement. Due to the patient largeHiatal Hernia/anatomy the gi was un able to place the peg. The patient wasreferred for surgical placement of fe eding tube. However at the time the pt'srespiratory status was unstable. Sub sequently, the patient would improve hestarted to tolerate his diet, and his respiratory status would improve. 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 1 kg (130 lb 6.4 oz)SpO2 98%BMI 23.85 kg/m PHYSICAL EXAM:General: Alert, coopera tive, no distress, appears stated age.Head: Normocephalic, without obvious abnormali ty, atraumatic.Eyes: Conjunctivae clear, anicteric sclerae. Pupils are equalNeck : Supple, symmetrical, no adenopathy, no carotid bruit and no JVD.Lungs: Clear to auscultation bilaterally. No Wheezing or Rhonchi. No rales.Chest wall: No Acces augusto muscle use.Heart: Regular rate and rhythm, no murmur, or rubAbdomen: Sof t, non-tender. Not distended. Bowel sounds normal. No massesExtremities: Extremitie s normal, atraumatic, No cyanosis. No edema. No clubbingSkin: No rashes or lesio ns. Not JaundicedLymph nodes: Cervical, supraclavicular normal.Psych: Not agita tedNeurologic: Awake, Alert, GUTIERREZ, nonverbalIntake and Output:Current Shift : No intake/output data recorded.Last three shifts: 11/08 700 - 11/09 1899In: -Out : 600 [Urine:600]Lab/Data Reviewed:Recent Days:Recent Labs 11/08/1919WBC 17.0* 10.3 6.6HGB 14.0 13.9* 15.5HCT 41.0* 41.5* 47.6PLT 204 19 5 193Recent Labs 11/08/1906NA 140 -- -- 139K 4.2 -- -- 4.1CL 104 -- -- 95*CO2 33* -- 49* 39*GLU 117* -- -- 122*BUN 15 -- -- 15CREA 0.50* -- -- 0.71CA 9.4 -- -- 9.2MG 2.1 1.6 -- 1.6ALB 2.9* -- -- 3.1*TBILI 0.4 -- -- 0.1*SGOT 17 -- -- 15ALT 14 -- -- 13INR 1.1 -- -- 1.0Recent Labs 123PH 7.41PCO2 73*PO2 77*HCO3 4 6*Cta Chest W Or W Wo ContResult Date: 11/08/2018Examination: CTA Chest ? PE an giography History: Hypoxia; rule out pneumoniaversus pulmonary embolism Prior s: None Technique: Low-dose, multiplanar,helical CTA chest was perfor med with bolus IV injection from lung apices tobases. 3D-reformatted images were obt ained and reviewed on a dedicated viewingworkstation and directly supervis ed. Contrast: A total of 71 mL of Isovue-370was administered intravenously for this procedure. Findings: No evidence ofpulmonary embolism is seen. There is d ecreased size of the right hemithorax fromchronic scarring and retraction with mediastinal shift left to right.Additional area of consolidation is seen in the rig ht lower lobe and suggestssuperimposed pneumonia with subsegmental atelectasis. Subsegmental atelectasisis also noted in the left lung base, with pleural parench ymal scarring. Lowlung volumes are seen. No pneumothorax seen. Aorta normal in calib er withoutaneurysm or dissection. Mediastinum no adenopathy. Mediastinal shift is see n inthe left and right as a result of chronic changes in the right hemithorax. Heart shows no chamber enlargement or pericardial effusion. No acute fractures seen in the bony thorax, sternum, manubrium and rib cage. Multiple compressiondefor mities are seen in the mid and lower thoracic spine, with superimposedspondyloarthropa thy. Cannot exclude acute fracture.Impression: No evidence of pul monary embolism Right lower lobe pneumoniasuggested. Incidental scarring and retraction in the right hemithorax fromremote/chronic inflammatory disease and/or trauma. Bibasilar subsegmentalatelectasis. Report Electron ically Signed By: Pawel Zafar M.D. -11/08/2018 12:40 AMXr Chest PortResult D ate: 11/07/2018XR CHEST PORT CLINICAL INDICATION PROVIDED:. "sob." COMPARISON: . 09/26/2015.FINDINGS:. The pericardial/cardiac silhouette is enlarg ed in the transversedimension. There is no pulmonary vascular congestion or interst itial edema.Linear density in the left lung base and faint densities in the right mi d tolower lung likely represent atelectasis. There is no lobar consolidation oreffusi on. There is no pneumothorax.IMPRESSION:. Bilateral lower lung atelectasis. No donna dence of consolidation oreffusion.Medications reviewedCurrent Facility-Administered Me dicationsMedication Dose Route Frequency dextrose 5 % - 0.45% NaCl infusion 50 m L/hr IntraVENous CONTINUOUS heparin (porcine) injection 5,000 Units 5,000 U nits SubCUTAneous Q12H albuterol-ipratropium (DUO-NEB) 2.5 MG-0.5 MG/3 ML 3 mL Nebul ization Q4H PRN methylPREDNISolone (PF) (SOLU-MEDROL) injection 40 mg 40 mg Int raVENous Q6H cinacalcet (SENSIPAR) tablet 60 mg 60 mg Oral DAILY lamoTRIgine (LaMIC krystian) tablet 50 mg 50 mg Oral BID ALPRAZolam (XANAX) tablet 0.25 mg 0.25 mg Oral GABRIELE LY cefTRIAXone (ROCEPHIN) 1 g in 0.9% sodium chloride (MBP/ADV) 50 mL MBP 1 gIntraVE Nous Q24H azithromycin (ZITHROMAX) 500 mg in 0.9% sodium chloride 250 mL IVPB 500 mg IntraVENous Q24H budesonide (PULMICORT) 500 mcg/2 ml nebulizer suspension 500 mcg N ebulizationBID RT albuterol-ipratropium (DUO-NEB) 2.5 MG-0.5 MG/3 ML 3 mL Nebul ization Q4HWA RTAssessment/Plan:Hospital Problems Never Reviewed Codes Cla ss Noted POA COPD (chronic obstructive pulmonary disease) (HCC) ICD-10-CM: J44. 9ICD-9-CM: 496 11/08/2018 Unknown Acute respiratory distress ICD-10-CM: R06.03IC D-9-CM: 518.82 11/08/2018 Unknown Pneumonia ICD-10-CM: J18.9ICD-9-CM: 486 11/08/2018 Unknown COPD exacerbation (HCC) ICD-10-CM: J44.1ICD-9-CM: 491.21 11/08/2018 Unknown Assessment:Acute Hypercapnia, Hypoxic respiratory failureMetabolic acidosisPne umoniaAcute COPD exacerbationSeizureH/O Large Hiatal HerniaGERDLeukocytosis likely matteo roid inducedSevere intellectual disability -Plan:Admit to telemetryCont O2NC/Bipap per pulmIV fluidsIv steroidsnebulitersSwallow evaluationCont iv zithro and rocephinF/u cultures -Liliane Gonzalez 2018Time: 12:10 AM Name Value Range Interpretation Code Description Data Harriett rce(s) Supporting Document(s ) ID Date Data Source [id number] 11/14/2018 09:41:43 AM EDT [facility] Reviewed pts chart from [facility].Gaston Hollins had previously attempted PEG placement however aberrant anatomy precludedendosc opic placement. He notes that the light of the endoscope was only seen inthe chest. Review of chest CT, stomach appears almost entirely retrocardiac.Discussed w/ Dr. Nicole buchanan, endoscopic attempt at PEG almost certain to beunsuccessful.Will cancel EG D and request surgical consult, Dr. Kaye. Name Value Range Interpretation Code Description Data Harriett rce(s) Supporting Document(s ) ID Date Data Source [id number] 11/14/2018 07:09:00 AM EDT [facility] Name Value Range Interpretation Description Data Sup porting Code Source(s) Document(s ) Sodium 139 136-145 [facility] - [Moles/volume] in mmol/L [facility] Serum or Plasma Hospital Potassium 4.2 3.5-5.1 [facility] - [Moles/volume] in mmol/L [facility] Serum or Plasma Hospital Chloride 103 98-107 [facility] - [Moles/volume] in mmol/L [facility] Serum or Plasma Hospital Carbon dioxide, 26 21-32 [facility] - total mmol/L Community [Moles/volume] in Hospital Serum or Plasma Anion gap in Serum 14 10-20 [facility] - or Plasma mmol/L [facility] Glucose 85 74-106 [facility] - [Mass/volume] in mg/dL [facility] Serum or Plasma Hospital Urea nitrogen 14 7-18 [facility] - [Mass/volume] in mg/dL [facility] Serum or Plasma Hospital Creatinine 0.46 0.70-1. Below low normal [facility] - [Mass/volume] in mg/dL 30 [facility] Serum or Plasma Hospital Glomerular >60 [facility] - filtration Community rate/1.73 sq M Hospital predicted among blacks [Volume Rate/Area] in Serum or Plasma by Creatinine-based formula (MDRD) Glomerular >60 [facility] - filtration Community rate/1.73 sq M Hospital predicted among non-blacks [Volume Rate/Area] in Serum or Plasma by Creatinine-based formula (MDRD) Calcium 9.1 8.5-10. [facility] - [Mass/volume] in mg/dL 1 [facility] Serum or Plasma Hospital Bilirubin.total 0.7 0.2-1.0 [facility] - [Mass/volume] in mg/dL [facility] Serum or Plasma Hospital Alanine 34 U/L 13-61 [facility] - aminotransferase Community [Enzymatic Hospital activity/volume] in Serum or Plasma Aspartate 25 U/L 15-37 [facility] - aminotransferase Community [Enzymatic Hospital activity/volume] in Serum or Plasma by With P-5'-P Alkaline 44 U/L 45-117 Below low normal [facility] - phosphatase Community [Enzymatic Hospital activity/volume] in Serum or Plasma Protein 6.1 6.4-8.2 Below low normal [facility] - [Mass/volume] in g/dL [facility] Serum or Plasma [facility] Albumin 2.9 3.5-4.7 Below low normal [facility] - [Mass/volume] in g/dL [facility] Serum or Plasma by Hospital Bromocresol purple (BCP) dye binding method Globulin 3.2 1.7-4.7 [facility] - [Mass/volume] in g/dL [facility] Serum by [facility] calculation Albumin/Globulin 0.9 0.7-2.8 [facility] - [Mass Ratio] in [facility] Serum or Plasma Hospital ID Date Data Source [id number] 11/14/2018 07:09:00 AM EDT [facility] Name Value Range Interpretation Description Data Sup porting Code Source(s) Document(s ) Phosphate 3.1 mg/dL 2.5-4.9 [facility] - [Mass/volume] Community in Serum or Hospital Plasma ID Date Data Source [id number] 11/14/2018 07:09:00 AM EDT [facility] Name Value Range Interpretation Description Data Sup porting Code Source(s) Document(s ) Magnesium 1.9 mg/dL 1.6-2.6 [facility] - [Mass/volume] Community in Serum or Hospital Plasma ID Date Data Source [id number] 11/14/2018 07:08:24 AM EDT [facility] Name Value Range Interpretation Description Data Sup porting Code Source(s) Document(s ) Leukocytes 11.0 4.8-10.6 Above high normal [facility] - [#/volume] in K/uL Community Blood by Hospital Automated count Erythrocytes 4.80 4.70-6.0 [facility] - [#/volume] in M/uL 0 [facility] Blood by Hospital Automated count Hemoglobin 15.8 14.0-18. [facility] - [Mass/volume] in g/dL 0 [facility] Blood [facility] Hematocrit 43.9 % 42.0-52. [facility] - [Volume 0 Community Fraction] of Hospital Blood by Automated count Erythrocyte mean 91.5 FL 81.0-94. [facility] - corpuscular 0 Community volume [Entitic Hospital volume] by Automated count Erythrocyte mean 32.9 PG 27.0-35. [facility] - corpuscular 0 [facility] [Entitic mass] by Automated count Erythrocyte mean 36.0 30.7-37. [facility] - corpuscular g/dL 3 [facility] hemoglobin Hospital concentration [Mass/volume] by Automated count Erythrocyte 13.8 % 11.5-14. [facility] - distribution 0 Community width [Ratio] by Hospital Automated count Platelets 251 K/uL 130-400 [facility] - [#/volume] in Community Blood by Hospital Automated count Platelet mean 9.6 FL 9.2-11.8 [facility] - volume [Entitic Community volume] in Blood Hospital by Automated count Segmented 75 % 48.0-72. Above high normal [facility] - neutrophils/100 0 Community leukocytes in Hospital Blood Lymphocytes/100 18 % 18.0-40. [facility] - leukocytes in 0 [facility] Blood Hospital Monocytes/100 7 % 2.0-12.0 [facility] - leukocytes in [facility] Blood Hospital Eosinophils/100 0 % 0.0-7.0 [facility] - leukocytes in [facility] Blood Hospital Basophils/100 0 % 0.0-3.0 [facility] - leukocytes in [facility] Blood Hospital Segmented 8.2 K/UL 1.5-6.6 Above high normal [facility] - neutrophils Community [#/volume] in Hospital Blood Lymphocytes 2.0 K/UL 1.5-3.5 [facility] - [#/volume] in [facility] Blood Hospital Monocytes 0.7 K/UL 0.0-1.0 [facility] - [#/volume] in [facility] Eosinophils 0.0 K/UL 0.0-0.7 [facility] - [#/volume] in [facility] Basophils 0.0 K/UL 0.0-0.1 [facility] - [#/volume] in [facility] Differential [facility] - cell count [facility] Immature 1 % 0.0-2.0 [facility] - granulocytes/100 Community leukocytes in Hospital Blood by Automated count ID Date Data Source [id number] 11/13/2018 08:08:02 PM EDT [facility] Bedside and Verbal shift change report carol pham to NANCY Grant (oncoming nurse) byYuki Henry RN (offgoing nurse). Report in cluded the following information SBAR and Kardex. Name Value Range Interpretation Code Description Data [facility] rce(s) Supporting Document(s ) ID Date Data Source [id number] 11/13/2018 05:00:18 PM EDT [facility] Suggest initiate EN with Osmolite 1.5 at 25 ml/hr to goal rate of 55ml/hrproviding 1980kcal 83g prot 269g CHO 65g fat 1006 ml free waterSuggest 125 ml free water q3h when D5 discontinued Name Value Range Interpretation Code Description Data [facility] Supporting Document(s ) ID Date Data Source [id number] 11/13/2018 04:59:10 PM EDT [facility] RECOMMENDATION:-suggest initiate EN with Osmolite 1.5 at 25 ml/hr to goal rate of 55ml/hrproviding 1980kcal 83g prot 1006 ml free water-suggest 125 ml free water q3h when D5 discontinuedASSESSMENT:Subjectiv e: pt failed [employer] eval past 3 days. Per GI notes, plans for PEGplacement tomorrow.N utrition Rx: NPO since 11/09Nutritionally Pertinent Labs: all labs reviewedNutriti onally Significant Meds: D5 at 50ml/hr, solu-medrolSkin: remains intact, butch score 12Labs: all labs reviewedMedications: D5 at 50ml/hr, solu-medrolAssessmentLast 3 Recorded Weights in this Encounter 11/08/18 0557 11/09/18 0636Weight: 60.8 kg (134 lb) 59.1 kg (130 lb 6.4 oz) Nutrition Rx: 1770-2065kcal; 73-89g prot ein (1.25-1.5g/kg); 1770-2065ml fluid(1ml/kcal)[based on: 30-35 Kcal/kg] % Estimated Energy Needs Met: 0%% Estimated Protein Needs Met: 0%% Fluid Needs Met: 50-75%DIAGNOSIS:Remains the same - Increased protein and energy needsINTERVENTION:-lemus ggest initiate EN with Osmolite 1.5 at 25 ml/hr to goal rate of 55ml/hrproviding 1 980kcal 83g prot 269g CHO 65g fat 1006 ml free water-suggest 125 ml free water q3h when D5 discontinuedGOALS:-tolerate TF at goal rate within 3-5 daysMONITOR/EVALUAT E:-EN Rx-weightDischarge Planning:Pending Clinical CourseYuki Camarillo RD Name Value Range Interpretation Code Description Data Harriett rce(s) Supporting Document(s ) ID Date Data Source [id number] 11/13/2018 01:45:47 PM EDT [facility] PULMONARY/ CCM- Consult NotePatient: Ivelisse Carlin Sex: male DOA: 11/07/2018Date of : 1 Age: 68 y.o. LOS: LOS: 5 daysHPI:kassie Carlin is a 68 y.o. male who has been seen for resp failure.7:31 PM: Evelio Carlin is a 68 y.o. male with h/o COPD, GERD,hyperparathyroidism, mental retarda tion, Pneumonia, pulmonary embolism, andschizophrenia who presents to the ED via EMS for shortness of breath andwheezing. Per triage note patient [facility] Seen earlier today,confused,breathing better. 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 Authorizing Providermultivitamin (ONE A DAY) tablet Take 1 Tab by mouth daily. Yes Provider,Historicalclorazepate (TRANXENE ) 3.75 mg tablet Take by mouth nightly. Yes Provider,Historicalalbuterol-ipratro pium (DUO-NEB) 2.5 mg-0.5 mg/3 ml nebu 3 mL by Nebulizationroute every six (6) hours as needed. Yes Provider, HistoricallamoTRIgine (LAMICTAL) 25 mg t ablet Take 50 mg by mouth two (2) times a day.Yes Provider, Historicalcinacalcet ( SENSIPAR) 30 mg tablet Take 60 mg by mouth daily. Yes Provider,Historicalvalproat e (DEPAKENE) 250 mg/5 mL syrup Take 750 mg by mouth two (2) times a day.Provider, Jazmine Thao Known AllergiesHistory reviewed. No pertinent surgical history.History revie wed. No pertinent family history.Social HistorySocioeconomic History Marital st atus: SINGLE Spouse name: Not on file Number of children: Not on file Years o f education: Not on file Highest education level: Not on fileTobacco Use Smoking s tatus: Never Smoker Smokeless tobacco: Never UsedSubstance and Sexual Activity Alcoh ol use: No Drug use: NoReview of SystemsPertinent items are noted in the History of Present Illness.Physical Exam:Current medications:Current Facilit y-Administered Medications: albuterol-ipratropium (DUO-NEB) 2.5 MG-0 .5 MG/3 ML, 3 mL, Nebulization, Q6HRT, Mili Hills DO, 3 mL at 11/13/18 08 08 methylPREDNISolone (PF) (SOLU-MEDROL) injection 20 mg, 20 mg, IntraVENous,Q12H , Krystian Monae MD, 20 mg at 11/13/18 0950 LORazepam (ATIVAN) injection 0.5 mg, 0.5 mg, IntraVENous, Q12H PRN, Mili Hills DO, 0.5 mg at 11/13/18 1122 0.9% sodiu m chloride 1,000 mL with mvi, adult no.4 with vit K 10 mL, [id number] mg, folic acid 1 mg infusion, , IntraVENous, Q24H, Mili Hills DO, LastRate: 100 mL/hr at 0705/03 1928 dextrose 5 % - 0.45% NaCl infusion, 50 mL/hr, IntraVENous, CONTINU OUS, Stella Hamilton MD, Last Rate: 50 mL/hr at 11/13/18 0626, 50 mL/hr at 11/13/18 0 626 heparin (porcine) injection 5,000 Units, 5,000 Units, SubCUTAneous, Q12H,K Polo bernardo MD, 5,000 Units at 11/13/18 0401 albuterol-ipratropium (DUO-NEB) 2 .5 MG-0.5 MG/3 ML, 3 mL, Nebulization, Q4HPRN, Polo Molina MD cinacalcet ( SENSIPAR) tablet 60 mg, 60 mg, Oral, DAILY, Mili Hills DO,Stopped at 11/12/18 09 lamoTRIgine (LaMICtal) tablet 50 mg, 50 mg, Oral, BID, Mili Hills DO,St opped at 11/11/18 2100 ALPRAZolam (XANAX) tablet 0.25 mg, 0.25 mg, Oral, DAILY, Mili Dawn DO,Stopped at 11/12/18 09 cefTRIAXone (ROCEPHIN) 1 g in 0.9% sodiu m chloride (MBP/ADV) 50 mL MBP, 1 g,IntraVENous, Q24H, Mili Hills DO , Last Rate: 100 mL/hr at 11/13/18 0949, 1g at 11/13/1849 azithromycin (ZITHROM AX) 500 mg in 0.9% sodium chloride 250 mL IVPB, 500 mg,IntraVENous, Q24H, Yassine Dudley MD, Last Rate: 250 mL/hr at 11/12/182119, 500mg at 07/31/19 2120 budesonid e (PULMICORT) 500 mcg/2 ml nebulizer suspension, 500 mcg,Nebulization, BID RT , Stella Hamilton MD, 500 mcg at 11/13/18 0808DataVisit VitalsBP 139/90 (BP 1 Loca tion: Right arm, BP Patient Position: At rest)Pulse 98Temp 97.4 F (36.3 C)Resp 18Ht 5' 2" (1.575 m)Wt 59.1 kg (130 lb 6.4 oz)SpO2 (!) 87%BMI 23.85 kg/m Intake and Output:Pulse OX:SpO2 Readings from Last 6 Encounters:11/13/18 (!) 87%09/26/15 96%@ LASTSAO2(6)@PHYSICAL EXAM:General: Lethargic,responding.Head: Normocephal ic, without obvious abnormality, atraumatic.Eyes: Conjunctivae clear, a nicteric sclerae. Pupils are equalNose: Nares normal. No drainage or sinus tende rness.Throat: Lips, mucosa, and tongue normal. No ThrushNeck: Supple, symmetr ical, no adenopathy, thyroid: non tender no carotid bruit and no JVD.Back: Symmet rodger, No CVA tenderness.Lungs: Scattered rhonchi,Chest wall: No tenderness or de formity. No Accessory muscle use.Heart: Regular rate and rhythm, no murmur, rub or gallop.Abdomen: Soft, non-tender. Not distended. Bowel sounds normal. No mass esExtremities: Extremities normal, atraumatic, No cyanosis. No edema. No c lubbingSkin: Texture, turgor normal. No rashes or lesions. Not JaundicedLymph n odes: Cervical, supraclavicular normal.Psych: Good insight. Not depressed. Not anxi ous or agitated.Neurologic: EOMs intact. No facial asymmetry. No aphasia or slurred speech.Most recent labs:Recent Labs 11/12/1906WBC 9.7 11.7*HG B 15.1 14.9HCT 43.5 43.4PLT 242 238Recent Labs 11/12/190611/11/18 0648NA 140 142 141K 4.0 3.8 4.0CL 103 104 106CO2 28 28 28GLU 77 79 100BUN 16 15 15 CREA 0.42* 0.49* 0.60*CA 9.1 9.0 9.0MG 1.9 1.8 --PHOS 2.9 2.9 --ALB 2.9* 3.2* 3.0 *TBILI 0.6 0.6 0.5SGOT 33 43* 29ALT 31 30 23No results for input(s): PH, PCO2, PO2 , HCO3, FIO2 in the last 72 hours.ABG:No results for input(s): PH, PCO2, PO2, HCO 3, FIO2 in the last 72 hours.Cultures:No results found for: SDESLab ResultsCompon ent Value Date/Time Culture result: NO GROWTH 5 DAYS 11/07/2018 08:10 PM Culture resul t: NO GROWTH 5 DAYS 11/07/2018 08:00 PMImages:Cta Chest W Or W Wo ContResult Date: 11/08/2018Examination: CTA Chest ? PE angiography History: Hypoxia; rule out p neumoniaversus pulmonary embolism Priors: None Technique: Low-dose, multiplanar,h elical CTA chest was performed with bolus IV injection from lung apices tobases. 3D- reformatted images were obtained and reviewed on a dedicated viewingworkstation and di rectly supervised. Contrast: A total of 71 mL of Isovue-370was administered intravenou sly for this procedure. Findings: No evidence ofpulmonary embolism is seen. T here is decreased size of the right hemithorax fromchronic scarring and retr action with mediastinal shift left to right.Additional area of consolidation i s seen in the right lower lobe and suggestssuperimposed pneumonia with subs egmental atelectasis. Subsegmental atelectasisis also noted in the left jorge g base, with pleural parenchymal scarring. Lowlung volumes are seen. No pneumothora x seen. Aorta normal in caliber withoutaneurysm or dissection. Mediastin um no adenopathy. Mediastinal shift is seen inthe left and right as a result of chr onic changes in the right hemithorax.Heart shows no chamber enlargement or pericard ial effusion. No acute fracturesseen in the bony thorax, sternum, manubrium and rib cage. Multiple compressiondeformities are seen in the mid and lower thoracic spine , with superimposedspondyloarthropathy. Cannot exclude acute fracture.Impression : No evidence of pulmonary embolism Right lower lobe pneumoniasuggested. Incidenta l scarring and retraction in the right hemithorax fromremote/chronic inflammato ry disease and/or trauma. Bibasilar subsegmentalatelectasis. Report Electron ically Signed By: Pawel Zafar M.D. -11/08/2018 12:40 AMXr Chest PortResult D ate: 11/07/2018XR CHEST PORT CLINICAL INDICATION PROVIDED:. "sob." COMPARISON: . 09/26/2015.FINDINGS:. The pericardial/cardiac silhouette is enlarg ed in the transversedimension. There is no pulmonary vascular congestion or interst itial edema.Linear density in the left lung base and faint densities in the right mi d tolower lung likely represent atelectasis. There is no lobar consolidation oreffusi on. There is no pneumothorax.IMPRESSION:. Bilateral lower lung atelectasis. No donna dence of consolidation oreffusion.Assessment/PlanActive Problem s: COPD (chronic obstructive pulmonary disease) (HCC) (11/08/2018) Acute respir atory distress (11/08/2018) Pneumonia (11/08/2018) COPD exacerbation (HCC) () Acute resp failure combined, pneumonia acute copd exacerbation pe rul ed out.PLAN,Monitoring,Ivabx,Iv steroids taperbipap prn and at night.NebD/w patie nt and nursing staff.Pantera Munson 2018The billing code submitted in ass ociation with this evaluation also includes thetime to review patient's prior record s, communicate with the physician team,obtain corroborating data, and discuss the risk and benefits of the proposedmanagement plan with the patient and their family >30 mi nutes. Name Value Range Interpretation Code Description Data Harriett rce(s) Supporting Document(s ) ID Date Data Source [id number] 11/13/2018 12:56:42 PM EDT [facility] Pt resting comfortablyvss afebabd soft n on tender, non distended nl b sGiven failed swallow study and recent aspiration pneu monia, feed tube isindiacted. Will attempt PEG tomorrow; clearly although notes all ude to clement considering surgical route because of hiatal hernia, there is no no tedocumenting failed PEG attempt. Thus, it seems reasonable to attempt thepercutane ous-endoscopic route. If during this attempt, it is felt unsafe toproceed, ca n abort and proceed surgically.Coags, platelet, etc ok and pt is on abx. Will hold heparin. Name Value Range Interpretation Code Description Data Harriett rce(s) Supporting Document(s ) ID Date Data Source [id number] 11/13/2018 11:42:14 AM EDT [facility] I spoke to Dr. Hills now. She was made aware that b/l restraint order needs richelle renewed. Name Value Range Interpretation Code Description Data Harriett rce(s) Supporting Document(s ) ID Date Data Source [id number] 11/13/2018 10:08:52 AM EDT [facility] ID Progress Note11/13/2018Subjective:No ne w event overnightPatient with MR,schizophrenia,non verbal.Pt failed sw allow evaluation and multiple attempts to put NG tube wereunsucessfull, GI input noted Unable to provide any history.Legionella and strep pneumo Ag are negativeAfebrileWBC is WNLBlood cx NGTDObjective:Vitals:Patient Vitals for the past 24 hrs: BP Temp Puls e Resp [id number]/13/18 0835 139/90 97.4 F (36.3 C) 98 18 (!) 87 %11/13/18 0810 - - - - 97 %11/13/18 0445 130/90 97.9 F (36.6 C) 90 18 97 %11/12/18 2130 - - - - 96 %2013 - - - - 96 %11/12/18 1935 (!) 142/100 98.7 F (37.1 C) 88 18 96 %11/12/18 151 9 132/80 97.5 F (36.4 C) 68 16 94 %Tmax: Temp (24hrs), Av.9 F (36.6 C), Min :97.4 F (36.3 C), Max:98.7 F(37.1 C)Physical Exam:General: Awake non verb al,tries to hit examiner with hand, no distressEyes: Conjunctivae/corneas sudhakar r. PERRLNeck: Supple, symmetrical, trachea midline, no adenopathyLungs: Bilateral breath sounds with basal crackles..Heart: Regular rate and rhythm, S1, S2 normalAb domen: Soft, non-tender. Bowel sounds normal.Back: No CVA tenderness.Extremi ties: No cyanosis or edema. Covered in mittensPulses: 2+ and symmetric all extr emities.Skin: Skin color, texture, turgor normal. No rashes or lesionsLymph nodes: Cervical, supraclavicular, and axillary nodes normal.Current Facility-Administer ed MedicationsMedication Dose Route Frequency albuterol-ipratropium (DUO-NEB) 2.5 MG- 0.5 MG/3 ML 3 mL Nebulization Q6H RT methylPREDNISolone (PF) (SOLU-MEDROL) in jection 20 mg 20 mg IntraVENous Q12H LORazepam (ATIVAN) injection 0.5 mg 0.5 mg IntraVENous Q12H PRN 0.9% sodium chloride 1,000 mL with mvi, adult no.4 w ith vit K 10 mL, [id number] mg, folic acid 1 mg infusion IntraVENous Q24H dextrose 5 % - 0.45% NaCl infusion 50 mL/hr IntraVENous CONTINUOUS heparin (porcine ) injection 5,000 Units 5,000 Units SubCUTAneous Q12H albuterol-ipratropium (DUO-NEB) 2.5 MG-0.5 MG/3 ML 3 mL Nebulization Q4H PRN cinacalcet (SENSIP AR) tablet 60 mg 60 mg Oral DAILY lamoTRIgine (LaMICtal) tablet 50 mg 50 mg Oral BID ALPRAZolam (XANAX) tablet 0.25 mg 0.25 mg Oral DAILY cefTRIAXone (FEDE EPHIN) 1 g in 0.9% sodium chloride (MBP/ADV) 50 mL MBP 1 gIntraVENous Q24H azithrom ycin (ZITHROMAX) 500 mg in 0.9% sodium chloride 250 mL IVPB 500 mgIntraVENous Q24H budesonide (PULMICORT) 500 mcg/2 ml nebulizer suspension 500 mcg Nebulizati onBID RTLabs:Recent Labs 08/01/763976 07/31/898279 07/30/760438YQQ 9.7 11.7* --HGB 15.1 14.9 --PLT 242 238 --BUN 16 15 15CREA 0.42* 0.49* 0.60*SGOT 33 43* 29AP 47 51 48TBILI 0.6 0.6 0.5Cultures:Lab ResultsComponent Value Date/Time Culture result: NO GROWTH 5 DAYS 11/07/2018 08:10 PM Culture result: NO GROWTH 5 DAYS 019 08:00 PMRadiology:No results found.Assessment: R/o sepspis Nosocomi al PNA COPD DysphagiaPlan:1. Continue Iv rocephin.Pantera Gonzalez 2018 0929 AM Name Value Range Interpretation Code Description Data Harriett rce(s) Supporting Document(s ) ID Date Data Source [id number] 11/13/2018 09:45:48 AM EDT [facility] Call put out to Dr. Hills office for re newal of restraint order. Pending callback Name Value Range Interpretation Code Description Data Harriett rce(s) Supporting Document(s ) ID Date Data Source [id number] 11/13/2018 08:47:05 AM EDT [facility] Name Value Range Interpretation Description Data Sup porting Code Source(s) Document(s ) Phosphate 2.9 mg/dL 2.5-4.9 [facility] - [Mass/volume] Community in Serum or Hospital Plasma ID Date Data Source [id number] 11/13/2018 08:47:05 AM EDT [facility] Name Value Range Interpretation Description Data Sup porting Code Source(s) Document(s ) Sodium 140 136-145 [facility] - [Moles/volume] in mmol/L [facility] Serum or Plasma Hospital Potassium 4.0 3.5-5.1 [facility] - [Moles/volume] in mmol/L [facility] Serum or Plasma Hospital Chloride 103 98-107 [facility] - [Moles/volume] in mmol/L [facility] Serum or Plasma Hospital Carbon dioxide, 28 21-32 [facility] - total mmol/L Community [Moles/volume] in Hospital Serum or Plasma Anion gap in Serum 13 10-20 [facility] - or Plasma mmol/L [facility] Glucose 77 74-106 [facility] - [Mass/volume] in mg/dL [facility] Serum or Plasma Hospital Urea nitrogen 16 7-18 [facility] - [Mass/volume] in mg/dL [facility] Serum or Plasma Hospital Creatinine 0.42 0.70-1. Below low normal [facility] - [Mass/volume] in mg/dL 30 [facility] Serum or Plasma Hospital Glomerular >60 [facility] - filtration Community rate/1.73 sq M Hospital predicted among blacks [Volume Rate/Area] in Serum or Plasma by Creatinine-based formula (MDRD) Glomerular >60 [facility] - filtration Community rate/1.73 sq M Hospital predicted among non-blacks [Volume Rate/Area] in Serum or Plasma by Creatinine-based formula (MDRD) Calcium 9.1 8.5-10. [facility] - [Mass/volume] in mg/dL 1 [facility] Serum or Plasma Hospital Bilirubin.total 0.6 0.2-1.0 [facility] - [Mass/volume] in mg/dL [facility] Serum or Plasma Hospital Alanine 31 U/L 13-61 [facility] - aminotransferase Community [Enzymatic Hospital activity/volume] in Serum or Plasma Aspartate 33 U/L 15-37 [facility] - aminotransferase Community [Enzymatic Hospital activity/volume] in Serum or Plasma by With P-5'-P Alkaline 47 U/L 45-117 [facility] - phosphatase Community [Enzymatic Hospital activity/volume] in Serum or Plasma Protein 6.2 6.4-8.2 Below low normal [facility] - [Mass/volume] in g/dL [facility] Serum or Plasma Hospital Albumin 2.9 3.5-4.7 Below low normal [facility] - [Mass/volume] in g/dL [facility] Serum or Plasma by Hospital Bromocresol purple (BCP) dye binding method Globulin 3.3 1.7-4.7 [facility] - [Mass/volume] in g/dL [facility] Serum by Hospital calculation Albumin/Globulin 0.9 0.7-2.8 [facility] - [Mass Ratio] in [facility] Serum or Plasma Hospital ID Date Data Source [id number] 11/13/2018 08:47:05 AM EDT [facility] - [facility] Name Value Range Interpretation Description Data Sup porting Code Source(s) Document(s ) Magnesium 1.9 mg/dL 1.6-2.6 [facility] - [Mass/volume] Community in Serum or Hospital Plasma ID Date Data Source [id number] 11/13/2018 08:46:45 AM EDT [facility] - [facility] Name Value Range Interpretation Description Data Sup porting Code Source(s) Document(s ) Leukocytes 9.7 K/uL 4.8-10.6 [facility] - [#/volume] in [facility] Blood by Hospital Automated count Erythrocytes 4.67 4.70-6.0 Below low normal [facility] - [#/volume] in M/uL 0 [facility] Blood by Hospital Automated count Hemoglobin 15.1 14.0-18. [facility] - [Mass/volume] in g/dL 0 [facility] Blood [facility] Hematocrit 43.5 % 42.0-52. [facility] - [Volume 0 Community Fraction] of Hospital Blood by Automated count Erythrocyte mean 93.1 FL 81.0-94. [facility] - corpuscular 0 Community volume [Entitic Hospital volume] by Automated count Erythrocyte mean 32.3 PG 27.0-35. [facility] - corpuscular 0 [facility] [Entitic mass] by Automated count Erythrocyte mean 34.7 30.7-37. [facility] - corpuscular g/dL 3 [facility] hemoglobin Hospital concentration [Mass/volume] by Automated count Erythrocyte 13.8 % 11.5-14. [facility] - distribution 0 Community width [Ratio] by Hospital Automated count Platelets 242 K/uL 130-400 [facility] - [#/volume] in [facility] Blood by Hospital Automated count Platelet mean 9.6 FL 9.2-11.8 [facility] - volume [Entitic Community volume] in Blood Hospital by Automated count Segmented 78 % 48.0-72. Above high normal [facility] - neutrophils/100 0 Community leukocytes in Hospital Blood Lymphocytes/100 15 % 18.0-40. Below low normal [facility] - leukocytes in 0 [facility] Blood Hospital Monocytes/100 7 % 2.0-12.0 [facility] - leukocytes in [facility] Blood Hospital Eosinophils/100 0 % 0.0-7.0 [facility] - leukocytes in [facility] Blood Hospital Basophils/100 0 % 0.0-3.0 [facility] - leukocytes in [facility] Blood Hospital Segmented 7.6 K/UL 1.5-6.6 Above high normal [facility] - neutrophils Community [#/volume] in Hospital Blood Lymphocytes 1.4 K/UL 1.5-3.5 Below low normal [facility] - [#/volume] in [facility] Blood Hospital Monocytes 0.6 K/UL 0.0-1.0 [facility] - [#/volume] in [facility] Eosinophils 0.0 K/UL 0.0-0.7 [facility] - [#/volume] in [facility] Basophils 0.0 K/UL 0.0-0.1 [facility] - [#/volume] in [facility] Hospital Differential [facility] - cell count [facility] Immature 1 % 0.0-2.0 [facility] - granulocytes/100 Community leukocytes in Hospital Blood by Automated count ID Date Data Source [id number] 11/13/2018 08:47:05 AM EDT [facility] - [facility] Name Value Range Interpretation Description Data Sup porting Code Source(s) Document(s ) Sodium 140 136-145 [facility] - [Moles/volume] in mmol/L [facility] Serum or [facility] Potassium 4.0 3.5-5.1 [facility] - [Moles/volume] in mmol/L [facility] or [facility] Chloride 103 98-107 [facility] - [Moles/volume] in mmol/L [facility] or [facility] Carbon dioxide, 28 21-32 [facility] - total mmol/L [facility] [Moles/volume] in Taoist Serum or [facility] Anion gap in Serum 13 10-20 [facility] - or Plasma mmol/L [facility] Glucose 77 74-106 [facility] - [Mass/volume] in mg/dL [facility] or [facility] Urea nitrogen 16 7-18 [facility] - [Mass/volume] in mg/dL [facility] or [facility] Creatinine 0.42 0.70-1. Below low normal [facility] - [Mass/volume] in mg/dL 30 [facility] or [facility] Glomerular >60 [facility] - filtration Good rate/1.73 sq M Taoist predicted among Hospital blacks [Volume Rate/Area] in Serum or Plasma by Creatinine-based formula (MDRD) Glomerular >60 [facility] - filtration Good rate/1.73 sq M Taoist predicted among Hospital non-blacks [Volume Rate/Area] in Serum or Plasma by Creatinine-based formula (MDRD) Calcium 9.1 8.5-10. [facility] - [Mass/volume] in mg/dL 1 Good Serum or Plasma [facility] Bilirubin.total 0.6 0.2-1.0 [facility] - [Mass/volume] in mg/dL Good Serum or Plasma [facility] Alanine 31 U/L 13-61 [facility] - aminotransferase Good [Enzymatic Taoist activity/volume] in Hospital Serum or Plasma Aspartate 33 U/L 15-37 [facility] - aminotransferase Good [Enzymatic Taoist activity/volume] in Hospital Serum or Plasma by With P-5'-P Alkaline 47 U/L 45-117 [facility] - phosphatase Good [Enzymatic Taoist activity/volume] in Hospital Serum or Plasma Protein 6.2 6.4-8.2 Below low normal [facility] - [Mass/volume] in g/dL Good Serum or Plasma [facility] Albumin 2.9 3.5-4.7 Below low normal [facility] - [Mass/volume] in g/dL Good Serum or Plasma by Taoist Bromocresol [facility] (BCP) dye binding method Globulin 3.3 1.7-4.7 [facility] - [Mass/volume] in g/dL Good Serum by [facility] Albumin/Globulin 0.9 0.7-2.8 [facility] - [Mass Ratio] in Good Serum or Plasma [facility] ID Date Data Source [id number] 11/13/2018 08:47:05 AM EDT [facility] - [facility] Name Value Range Interpretation Description Data Sup porting Code Source(s) Document(s ) Phosphate 2.9 mg/dL 2.5-4.9 [facility] - Good [Mass/volume] Taoist in Serum or Hospital Plasma ID Date Data Source [id number] 11/13/2018 08:47:05 AM EDT [facility] - [facility] Name Value Range Interpretation Description Data Sup porting Code Source(s) Document(s ) Magnesium 1.9 mg/dL 1.6-2.6 [facility] - Good [Mass/volume] Taoist in Serum or Hospital Plasma ID Date Data Source [id number] 11/13/2018 08:46:45 AM EDT [facility] - [facility] Name Value Range Interpretation Description Data Sup porting Code Source(s) Document(s ) Leukocytes 9.7 K/uL 4.8-10.6 [facility] - [#/volume] in Good Blood by [facility] Erythrocytes 4.67 4.70-6.0 Below low normal [facility] - [#/volume] in M/uL 0 Good Blood by [facility] Hemoglobin 15.1 14.0-18. [facility] - [Mass/volume] in g/dL 0 [facility] Blood [facility] Hematocrit 43.5 % 42.0-52. [facility] - [Volume 0 Good Fraction] of Taoist Blood by Hospital Automated count Erythrocyte mean 93.1 FL 81.0-94. [facility] - corpuscular 0 Good volume [Entitic Taoist volume] by Hospital Automated count Erythrocyte mean 32.3 PG 27.0-35. [facility] - corpuscular 0 Good hemoglobin Taoist [Entitic mass] Hospital by Automated count Erythrocyte mean 34.7 30.7-37. [facility] - corpuscular g/dL 3 Good hemoglobin Taoist concentration Hospital [Mass/volume] by Automated count Erythrocyte 13.8 % 11.5-14. [facility] - distribution 0 Good width [Ratio] by [facility] Platelets 242 K/uL 130-400 [facility] - [#/volume] in Good Blood by [facility] Platelet mean 9.6 FL 9.2-11.8 [facility] - volume [Entitic Good volume] in Blood Taoist by Automated Hospital count Segmented 78 % 48.0-72. Above high normal [facility] - neutrophils/100 0 Good leukocytes in [facility] Lymphocytes/100 15 % 18.0-40. Below low normal [facility] - leukocytes in 0 [facility] Blood [facility] Monocytes/100 7 % 2.0-12.0 [facility] - leukocytes in [facility] Eosinophils/100 0 % 0.0-7.0 [facility] - leukocytes in [facility] Blood [facility] Basophils/100 0 % 0.0-3.0 [facility] - leukocytes in [facility] Segmented 7.6 K/UL 1.5-6.6 Above high normal [facility] - neutrophils Good [#/volume] in [facility] Lymphocytes 1.4 K/UL 1.5-3.5 Below low normal [facility] - [#/volume] in [facility] Monocytes 0.6 K/UL 0.0-1.0 [facility] - [#/volume] in [facility] Eosinophils 0.0 K/UL 0.0-0.7 [facility] - [#/volume] in [facility] Basophils 0.0 K/UL 0.0-0.1 [facility] - [#/volume] in [facility] Differential [facility] - cell count [facility] Immature 1 % 0.0-2.0 [facility] - granulocytes/100 [facility] leukocytes in [facility] Hospital Automated count ID Date Data Source [id number] 11/12/2018 10:32:20 PM EDT [facility] - [facility] Problem: Pressure Injury - Risk ofGoal: *Prevention of pressure injuryDescriptionDocument Butch Scale a nd appropriate interventions in the flowsheet.Outcome: Progressing Towards G oalNote:Pressure Injury Interventions:Sensory Interventions: Assess changes in LOCMois ture Interventions: Absorbent underpads, Apply protective barrier, creamsand emol lientsActivity Interventions: Pressure redistribution bed/mattress(bed type)Mob ility Interventions: Assess need for specialty bedNutrition Interventions: Do cument food/fluid/supplement intakeFriction and Shear Interventions: Apply protectiv e barrier, creams andemollientsProblem: Patient Education: Go to Patient Educati on ActivityGoal: Patient/Family EducationOutcome: Progressing Towards Go alProblem: Falls - Risk ofGoal: *Absence of FallsDescriptionDocument Samra Fall Ris k and appropriate interventions in the flowsheet.Outcome: Progressing Towards G oalNote:Fall Risk Interventions:Mobility Interventions: Bed/chair exit alarmMenta tion Interventions: Adequate sleep, hydration, pain controlMedication Interv entions: Bed/chair exit alarmElimination Interventions: Call light in reach, Bed/ chair exit alarmProblem: Patient Education: Go to Patient Education ActivityGoal: Pa tient/Family EducationOutcome: Progressing Towards GoalProblem: Gas Exchange - Impa iredGoal: *Absence of hypoxiaOutcome: Progressing Towards GoalProblem: Patient Education: Go to Patient Education ActivityGoal: Patient/Family EducationOu tcome: Progressing Towards GoalProblem: Pneumonia: Day 1Goal: Consults, if order edOutcome: Progressing Towards GoalGoal: Diagnostic Test/ProceduresOutcome: Progr essing Towards GoalGoal: Nutrition/DietOutcome: Progressing Towar ds GoalGoal: MedicationsOutcome: Progressing Towards GoalGoal: RespiratoryOutcome: Pr ogressing Towards GoalGoal: Treatments/Interventions/ProceduresOutco me: Progressing Towards GoalGoal: PsychosocialOutcome: Progressing Towards GoalGoal: *Oxygen saturation within defined limitsOutcome: Progressing Towards GoalG oal: *Hemodynamically stableOutcome: Progressing Towards GoalGoal: *Demonstra tasha progressive activityOutcome: Progressing Towards GoalGoal: *Tolerating dietOutcom e: Progressing Towards GoalProblem: Dysphagia (Adult)Goal: *Speech Goal: (INSERT TEXT) Outcome: Progressing Towards GoalGoal: InterventionsOutcome: Progressing Toward s GoalProblem: Patient Education: Go to Patient Education ActivityGoal: Patient/ Family EducationOutcome: Progressing Towards GoalProblem: Non-Violent RestraintsGoal: *Removal from restraints as soon as assessed to be safeOutcome: Progressing Towards G oalGoal: *No harm/injury to patient while restraints in useOutcome: Progressing To wards GoalGoal: *Patient's dignity will be maintainedOutcome: Progressing Towards G oalGoal: *Patient Specific Goal (EDIT GOAL, INSERT TEXT)Outcome: Progressing Towards GoalGoal: Non-violent Restaints:Standard InterventionsOutcome: Progressing Toward s GoalGoal: Non-violent Restraints:Patient InterventionsOutcome: Progressing Toward s GoalGoal: Patient/Family EducationOutcome: Progressing Towards GoalProblem: Nutriti on DeficitGoal: *Optimize nutritional statusDescriptionConsumption of >50% me als/snacks/supplements daily within 3-7 daysOutcome: Progressing Towards GoalPro blem: Dysphagia (Adult)Goal: *Speech Goal: (INSERT TEXT)Outcome: Progressing Toward s GoalProblem: Patient Education: Go to Patient Education ActivityGoal: Patient/ Family EducationOutcome: Progressing Towards Goal Name Value Range Interpretation Code Description Data Harriett rce(s) Supporting Document(s ) ID Date Data Source [id number] 11/12/2018 07:44:33 PM EDT [facility] PULMONARY/ CCM- Consult NotePatient: Ivelisse Carlin Sex: male DOA: 11/07/2018Date of : 1 Age: 68 y.o. LOS: LOS: 3 daysHPI:step downEvelio Carlin is a 68 y.o. male who has been seen for resp failure.7:31 PM: Evelio Carlin is a 68 y.o. male with h/o COPD, GERD,hyperparathyroidism, mental retarda tion, Pneumonia, pulmonary embolism, andschizophrenia who presents to the ED via EMS for shortness of breath andwheezing. Per triage note patient was given Duo-Ne b and Solu-Medrol 40 mg IM atfacility. Seen earlier today,confused,breathing better. 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 Authorizing Providermultivitamin (ONE A DAY) tablet Take 1 Tab by mouth daily. Yes Provider,Historicalclorazepate (TRANXENE ) 3.75 mg tablet Take by mouth nightly. Yes Provider,Historicalalbuterol-ipratro pium (DUO-NEB) 2.5 mg-0.5 mg/3 ml nebu 3 mL by Nebulizationroute every six (6) hours as needed. Yes Provider, HistoricallamoTRIgine (LAMICTAL) 25 mg t ablet Take 50 mg by mouth two (2) times a day.Yes Provider, Historicalcinacalcet ( SENSIPAR) 30 mg tablet Take 60 mg by mouth daily. Yes Provider,Historicalvalproat e (DEPAKENE) 250 mg/5 mL syrup Take 750 mg by mouth two (2) times a day.Provider, Hist oriPietro Known AllergiesHistory reviewed. No pertinent surgical history.History revie wed. No pertinent family history.Social HistorySocioeconomic History Marital st atus: SINGLE Spouse name: Not on file Number of children: Not on file Years o f education: Not on file Highest education level: Not on fileTobacco Use Smoking s tatus: Never Smoker Smokeless tobacco: Never UsedSubstance and Sexual Activity Alcoh ol use: No Drug use: NoReview of SystemsPertinent items are noted in the History of Present Illness.Physical Exam:Current medications:Current Facilit y-Administered Medications: 0.9% sodium chloride 1,000 mL with mvi, adult no.4 w ith vit K 10 mL, [id number] mg, folic acid 1 mg infusion, , IntraVENous, Q24H, Mili Hills DO, LastRate: 100 mL/hr at 11/10/18 1826 dextrose 5 % - 0.45% NaC l infusion, 50 mL/hr, IntraVENous, CONTINUOUS, Stella Hamilton MD, Last Rate : 50 mL/hr at 11/10/18 1353, 50 mL/hr at 11/10/18 1353 heparin (porcine) inject ion 5,000 Units, 5,000 Units, SubCUTAneous, Q12H,Polo Molina MD, 5,000 Units at 0 11/11/18 0227 albuterol-ipratropium (DUO-NEB) 2.5 MG-0.5 MG/3 ML, 3 mL, Nebu lization, Q4HPRN, Polo Molina MD methylPREDNISolone (PF) (SOLU-MEDROL) in jection 40 mg, 40 mg, IntraVENous,Q6H, Polo Molina MD, 40 mg at 11/11/18 1203 dominick acalcet (SENSIPAR) tablet 60 mg, 60 mg, Oral, DAILY, Mili Hills DO,60 mg at 073 0911 lamoTRIgine (LaMICtal) tablet 50 mg, 50 mg, Oral, BID, Mili Hills D O,50 mg at 11/11/18 09 ALPRAZolam (XANAX) tablet 0.25 mg, 0.25 mg, Oral, DAILY, Ne Mili gallo DO,0.25 mg at 11/11/18 09 cefTRIAXone (ROCEPHIN) 1 g in 0.9% sodiu m chloride (MBP/ADV) 50 mL MBP, 1 g,IntraVENous, Q24H, Mili Hills DO , Last Rate: 100 mL/hr at 11/11/18 0911, 1g at 11/11/18 09 azithromycin (ZITHROM AX) 500 mg in 0.9% sodium chloride 250 mL IVPB, 500 mg,IntraVENous, Q24H, Yassine Dudley MD, Last Rate: 250 mL/hr at 11/10/182114, 500mg at 11/10/182114 budesonid e (PULMICORT) 500 mcg/2 ml nebulizer suspension, 500 mcg,Nebulization, BID RT , Stella Hamilton MD, 500 mcg at 11/11/18 0835 albuterol-ipratropium (DUO-NEB) 2 .5 MG-0.5 MG/3 ML, 3 mL, Nebulization, [id number], Stella Hamilton MD, 3 mL at 1204DataVisit VitalsBP (!) 130/99 (BP 1 Location: Right arm, BP Patient Position : Supine)Pulse 84Temp 96.7 F (35.9 C)Resp 20Ht 5' 2" (1.575 m)Wt 59.1 kg (130 lb 6 .4 oz)SpO2 93%BMI 23.85 kg/m Intake and Output:Date 11/10/18699 - 11/11/18 065 9 11/11/18699 - 11/12/18 0659Shift 2528-5792 4054-7327 24 Hour Total 699-1 859 5910-3312 24 Hour TotalINTAKEI.V.(mL/kg/hr) 1450(2) 1450( 1) Volume (0.9% sodium chloride 1,000 mL with mvi, adult no.4 with vit K 10 mL,th iamine 100 mg, folic acid 1 mg infusion) 1200 1200 Volume (azithromycin (ZITHROM AX) 500 mg in 0.9% sodium chloride 250 mL IVPB)250 250Shift Total(mL/kg) 1450(24. 5) 1450(24.5)OUTPUTUrine(mL/kg/hr) 850(1.2) 300(0.4) 1150(0.8) Urine Voided 850 85 0 Urine Output (mL) ([REMOVED] Condom Catheter 11/09/18) 300 300Shift Total(m L/kg) 850(14.4) 300(5.1) 1150(19.4)NET -850 1150 300Weight (kg) 59.1 59.1 59.1 59.1 59.1 59.1Pulse OX:SpO2 Readings from Last 6 Encounters:11/11/18 93%09/26/15 96%@LAST SAO2(6)@PHYSICAL EXAM:General: Lethargic,responding.Head: Normocephal ic, without obvious abnormality, atraumatic.Eyes: Conjunctivae clear, a nicteric sclerae. Pupils are equalNose: Nares normal. No drainage or sinus tende rness.Throat: Lips, mucosa, and tongue normal. No ThrushNeck: Supple, symmetr ical, no adenopathy, thyroid: non tender no carotid bruit and no JVD.Back: Symmet rodger, No CVA tenderness.Lungs: Scattered rhonchi,Chest wall: No tenderness or de formity. No Accessory muscle use.Heart: Regular rate and rhythm, no murmur, rub or gallop.Abdomen: Soft, non-tender. Not distended. Bowel sounds normal. No mass esExtremities: Extremities normal, atraumatic, No cyanosis. No edema. No c lubbingSkin: Texture, turgor normal. No rashes or lesions. Not JaundicedLymph n odes: Cervical, supraclavicular normal.Psych: Good insight. Not depressed. Not anxi ous or agitated.Neurologic: EOMs intact. No facial asymmetry. No aphasia or slurred speech.Most recent labs:Recent Labs 8 WBC 14.4* 17.0* HGB 13.5* 14.0HCT 40.1* 41.0*PLT 227 204Recent Labs 11/10/1904 8 NA 141 141 140K 4.0 4.0 4.2CL 106 103 104CO2 28 32 33*GLU 100 102 117* BUN 15 17 15CREA 0.60* 0.55* 0.50*CA 9.0 9.3 9.4MG -- -- 2.1ALB 3.0* 2.9* 2.9*TBI LI 0.5 0.3 0.4SGOT 29 25 17ALT 23 17 14INR -- -- 1.1No results for input(s): PH, PCO2, PO2, HCO3, FIO2 in the last 72 hours.ABG:No results for input(s): PH, P CO2, PO2, HCO3, FIO2 in the last 72 hours.Cultures:No results found for: [employer] SLab ResultsComponent Value Date/Time Culture result: NO GROWTH 4 DAYS 11/07/2018 08:1 0 PM Culture result: NO GROWTH 4 DAYS 11/07/2018 08:00 PMImages:Cta Chest W Or W Wo ContResult Date: 11/08/2018Examination: CTA Chest ? PE angiography History: Hypo magdy; rule out pneumoniaversus pulmonary embolism Priors: None Technique: Low-d ose, multiplanar,helical CTA chest was performed with bolus IV injection from lung apices tobases. 3D-reformatted images were obtained and reviewed on a [employer] d viewingworkstation and directly supervised. Contrast: A total of 71 mL of Isovue-370 was administered intravenously for this procedure. Findings: No evidence ofpulmo nary embolism is seen. There is decreased size of the right hemithorax fromchronic scarring and retraction with mediastinal shift left to right.Additional area of c onsolidation is seen in the right lower lobe and suggestssuperimposed pneumonia with subsegmental atelectasis. Subsegmental atelectasisis also noted in the left jorge g base, with pleural parenchymal scarring. Lowlung volumes are seen. No pneumothora x seen. Aorta normal in caliber withoutaneurysm or dissection. Mediastin um no adenopathy. Mediastinal shift is seen inthe left and right as a result of chr onic changes in the right hemithorax.Heart shows no chamber enlargement or pericard ial effusion. No acute fracturesseen in the bony thorax, sternum, manubrium and rib cage. Multiple compressiondeformities are seen in the mid and lower thoracic spine , with superimposedspondyloarthropathy. Cannot exclude acute fracture.Impression : No evidence of pulmonary embolism Right lower lobe pneumoniasuggested. Incidenta l scarring and retraction in the right hemithorax fromremote/chronic inflammato ry disease and/or trauma. Bibasilar subsegmentalatelectasis. Report Electron ically Signed By: Pawel Zafar M.D. -11/08/2018 12:40 AMXr Chest PortResult D ate: 11/07/2018XR CHEST PORT CLINICAL INDICATION PROVIDED:. "sob." COMPARISON: . 09/26/2015.FINDINGS:. The pericardial/cardiac silhouette is enlarg ed in the transversedimension. There is no pulmonary vascular congestion or interst itial edema.Linear density in the left lung base and faint densities in the right mi d tolower lung likely represent atelectasis. There is no lobar consolidation oreffusi on. There is no pneumothorax.IMPRESSION:. Bilateral lower lung atelectasis. No donna dence of consolidation oreffusion.Assessment/PlanActive Problem s: COPD (chronic obstructive pulmonary disease) (HCC) (11/08/2018) Acute respir atory distress (11/08/2018) Pneumonia (11/08/2018) COPD exacerbation (HCC) () Acute resp failure combined, pneumonia acute copd exacerbation pe rul ed out.PLAN,Monitoring,Ivabx,Iv steroids taperbipap prn and at night.NebD/w patie nt and nursing staff.Laurel Munson 2018The billing code submitted in as sociation with this evaluation also includes thetime to review patient's prior record s, communicate with the physician team,obtain corroborating data, and discuss the risk and benefits of the proposedmanagement plan with the patient and their family >30 mi nutes. Name Value Range Interpretation Code Description Data Harriett rce(s) Supporting Document(s ) ID Date Data Source [id number] 11/12/2018 05:40:03 PM EDT [facility] GASTROENTEROLOGY CONSULTATION NOTENAME: Evelio AlexinDOB: 1950MRN: [id number] Date: 11/12/2018 5:26 PMHi story of Present Illness: Patient is a 68 y.o. M with schizophrenia, mentalretarda tion, COPD who is now admitted with aspiration pneumonia. He is aresident of a SNF and is non verbal. He has been treated for aspirationpneumonia with improvement . He had a swallow study which he has failed.Alternative means for nutrition w as recommended. There is a hx of hiatal herniawith much of his stomach in his ch est noted in the chart. He was apparentlyscheduled for surgical J-tube placement in the past due to inability to placePEG, however there is no documentat ion of EGD in the chart. The J-tube was notplaced due to high risk for respirato ry failure post-op. 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 No pertinent surgical history.Allergies:No Known Des rgiesHome Medications:Prior to Admission MedicationsPrescriptions Last Dose Infor mant Patient Reported? Taking?albuterol-ipratropium (DUO-NEB) 2 .5 mg-0.5 mg/3 ml nebu 11/07/2018 at 1710 YesYesSi mL by Nebulization route ev james six (6) hours as needed.cinacalcet (SENSIPAR) 30 mg tablet 11/07/2018 at 090 0 Yes YesSig: Take 60 mg by mouth daily.clorazepate (TRANXENE) 3.75 mg tab let 11/06/2018 at 2000 Yes YesSig: Take by mouth nightly.lamoTRIgine (LAMICTAL) 25 mg tablet 11/07/2018 at 0900 Yes YesSig: Take 50 mg by mouth two (2) times a day.multi vitamin (ONE A DAY) tablet 11/07/2018 at 0900 Yes YesSig: Take 1 Tab by mouth daily.va lproate (DEPAKENE) 250 mg/5 mL syrup 11/07/2018 at 0800 Yes NoSig: Take 750 m g by mouth two (2) times a day.Facility-Administered Medications: [facility] Medications:Current Facility-Administered MedicationsMedicat ion Dose Route Frequency albuterol-ipratropium (DUO-NEB) 2.5 MG-0 .5 MG/3 ML 3 mL Nebulization Q6H RT methylPREDNISolone (PF) (SOLU-MEDROL) in jection 20 mg 20 mg IntraVENous Q12H LORazepam (ATIVAN) injection 0.5 mg 0.5 mg IntraVENous Q12H PRN 0.9% sodium chloride 1,000 mL with mvi, adult no.4 w ith vit K 10 mL, [id number] mg, folic acid 1 mg infusion IntraVENous Q24H dextrose 5 % - 0.45% NaCl infusion 50 mL/hr IntraVENous CONTINUOUS heparin (porcine ) injection 5,000 Units 5,000 Units SubCUTAneous Q12H albuterol-ipratropium (DUO-NEB) 2.5 MG-0.5 MG/3 ML 3 mL Nebulization Q4H PRN cinacalcet (SENSIP AR) tablet 60 mg 60 mg Oral DAILY lamoTRIgine (LaMICtal) tablet 50 mg 50 mg Oral BID ALPRAZolam (XANAX) tablet 0.25 mg 0.25 mg Oral DAILY cefTRIAXone (FEDE EPHIN) 1 g in 0.9% sodium chloride (MBP/ADV) 50 mL MBP 1 gIntraVENous Q24H azithrom ycin (ZITHROMAX) 500 mg in 0.9% sodium chloride 250 mL IVPB 500 mgIntraVENous Q24H budesonide (PULMICORT) 500 mcg/2 ml nebulizer suspension 500 mcg Nebulizati onBID RTSocial History:Social HistoryTobacco Use Smoking status: Never Smoker Smoke less tobacco: Never UsedSubstance Use Topics Alcohol use: NoFamily History:History re viewed. No pertinent family history.Review of Systems:not obtainableObjective:Patient Vitals for the past 8 hrs: BP Temp Pulse Resp QvM99011/12/18 1519 132/80 97.5 F (36.4 C) 68 16 94 %EXAM: WDWN in NAD. Comfortable with mittens on. HEENT- scle ra anicteric LUNGS- B/L rales at bases COR-regular rate and rhythm, S1, S2 norm al ABD-soft, not distended, no tenderness, no rebound nor guarding Rectal Exam- deferr ed. EXT-no edemaData :CBC w/Diff Recent Labs 11/10/1904WBC 11.7* 14.4* HGB 14.9 13.5*HCT 43.4 40.1*MCV 94.1* 95.7*PLT 238 227GRANS 79* 89*LYMPH 13* 8 *EOS 0 0Chemistry Recent Labs 11/11/1905GLU 79 100 102N A 142 141 141K 3.8 4.0 4.0CL 104 106 103CO2 28 28 32BUN 15 15 17CREA 0.49* 0.60* 0.5 5* Recent Labs 11/11/1905CA 9.0 9.0 9.3PHOS 2.9 -- --ALB 3.2* 3.0* 2.9*TBILI 0.6 0.5 0.3AP 51 48 46SGOT 43* 29 25ALT 30 23 17Coagulati on No results for input(s): PTP, INR, APTT in the last 72 hours.No lab exists for comp onent: INREXTCta Chest W Or W Wo ContResult Date: 11/08/2018Impression: No evidence of pulmonary embolism Right lower lobe pneumoniasuggested. Incidental scarring and retraction in the right hemithorax fromremote/chronic inflammatory disease and/or trauma. Bibasilar subsegmentalatelectasis. Report Electron ically Signed By: Pawel Zafar M.D. -11/08/2018 12:40 AMPatient Active Proble m ListDiagnosis Code 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 COPD (chronic obstructive pulmonary disease) ([facility]) J44.9 Acute respiratory distress R06.03 Pneumonia J 18.9 COPD exacerbation ([facility]) J44.1Assessment: Dysphagia with recurre nt aspiration pneumonia- agree with need for G or Jtube. It appears that he has had a ttempt at PEG in the past but could not beperformed.Plan: NPO If family desire s G/J tube suspect will need surgical placement. Can considerrepeat attempt at EGD/PEG If too high risk for general anesthesia.Signed By: Maria D Hollins MD 11/12 5:26 PM Name Value Range Interpretation Code Description Data Harriett rce(s) Supporting Document(s ) ID Date Data Source [id number] 11/12/2018 01:31:41 PM EDT [facility] Progress NoteMID-[facility].Krystian Monae MD., F.C.C.P.Stella Hamilton MD., F.C.C.P. [address] [place] [id number] [place] [address] [phone]: Evelio Carlin Sex: male DOA: 11/07/2018Da te of : 1950 Age: 68 y.o. LOS: LOS: 4 daysSubjective:Mr. Gayla beltran is a 68 y.o. year old male who is being seen for BILATERALASPIRATION PNEUMONIA , DYSPHAGIA , HE IS MORE AWAKE AND COMFORTABLE . COUGH IS MINIMAL ..Object britni:Vital Signs:Patient Vitals for the past 24 hrs: BP Temp Pulse Resp MtP31711/12/18 0745 124/79 97.9 F (36.6 C) 68 18 92 %11/12/18 0529 142/90 97.5 F (36.4 C) 66 18 90 %11/11/18 2003 (!) 147/94 98.5 F (36.9 C) 83 18 90 %11/11/18 1703 (!) 13 0/95 98.4 F (36.9 C) 70 18 91 %Pulse OX:SpO2 Readings from Last 6 Encounters: 11/12/18 92%09/26/15 96%@LASTSAO2(6)@Physical Exam:MORE AWAKE , O SIGN + . CONTRAC MIKEL PATIENT General: Alert, cooperative, no distress, appears stated age. Head: Normocephalic, without obvious abnormality, atraumatic. Eyes: Conjunctivae/corneas clear. PERRL, EOMs intact. No se: Nares normal. No drainage or sinus tenderness Throat: Lips, mucos a, and tongue normal Neck: Supple, symmetrical, trachea midline, no adenopathy,thyroid: no enlargement/tenderness/nodules, no carot id bruit and no JVD. Lungs: WHEEZING SUBSIDED , RALES DECREASED R L L AND L L L toauscultation bilaterally. Chest Wall: No tenderness or deformit y. Heart: Regular rate and rhythm, S1, S2 normal, no murmur, click, rub or gallop. Abdomen: Soft, non-tender. Bowel sounds normal. No mass es, No organomegaly. Extremities: Extremities normal, atraumatic, no cyano sis or edema. Pulses: 4+ bilaterally. Skin: Skin co nirali, texture, turgor normal. No rashes or lesions. Neurologic: CNII-XII intact. No focal motor or sensory deficit.Intake and Output:Last three shifts: 11/10 1901 - 11/12 0700In: 1450 [I.V.:1450]Out: 300 [Urine:300]Lab Results:Recent Results (f rom the past 24 hour(s))METABOLIC PANEL, COMPREHENSIVE Collection Time: 11/12/18 7:20 AMResult Value Ref Range Sodium 142 136 - 145 mmol/L Potassium 3.8 3.5 - 5.1 mmo l/L Chloride 104 98 - 107 mmol/L CO2 28 21 - 32 mmol/L Anion gap 14 10 - 20 mmol/L Gl ucose 79 74 - 106 mg/dL BUN 15 7 - 18 mg/dL Creatinine 0.49 (L) 0.70 - 1.30 mg/dL GF R est AA >60 >60 ml/min/1.73m2 GFR est non-AA >60 >60 ml/min/1.73m2 Calcium 9.0 8.5 - 10.1 mg/dL Bilirubin, total 0.6 0.2 - 1.0 mg/dL ALT (SGPT) 30 13 - 61 U/L AST (SGO T) 43 (H) 15 - 37 U/L Alk. phosphatase 51 45 - 117 U/L Protein, total 6.8 6.4 - 8.2 g /dL Albumin 3.2 (L) 3.5 - 4.7 g/dL Globulin 3.6 1.7 - 4.7 g/dL A-G Ratio 0.9 0.7 - 2 .8MAGNESIUM Collection Time: 11/12/18 7:20 AMResult Value Ref Range Magnesium 1.8 1 .6 - 2.6 mg/dLCBC WITH AUTOMATED DIFF Collection Time: 11/12/18 7:20 AMResult Value Ref Range WBC 11.7 (H) 4.8 - 10.6 K/uL RBC 4.61 (L) 4.70 - 6.00 M/uL HGB 14.9 1 4.0 - 18.0 g/dL HCT 43.4 42.0 - 52.0 % MCV 94.1 (H) 81.0 - 94.0 FL MCH 32.3 27.0 - 35.0 PG MCHC 34.3 30.7 - 37.3 g/dL RDW 13.8 11.5 - 14.0 % PLATELET 238 130 - 400 K/u L MPV 9.7 9.2 - 11.8 FL NEUTROPHILS 79 (H) 48.0 - 72.0 % LYMPHOCYTES 13 (L) 18.0 - 40.0 % MONOCYTES 8 2.0 - 12.0 % EOSINOPHILS 0 0.0 - 7.0 % BASOPHILS 0 0.0 - 3.0 % ABS. NEUTROPHILS 9.2 (H) 1.5 - 6.6 K/UL ABS. LYMPHOCYTES 1.6 1.5 - 3.5 K/UL ABS. MONO CYTES 0.9 0.0 - 1.0 K/UL ABS. EOSINOPHILS 0.0 0.0 - 0.7 K/UL ABS. BASOPHILS 0.0 0.0 - 0.1 K/UL DF AUTOMATED IMMATURE GRANULOCYTES 1 0.0 - 2.0 %PHOSPHORUS Collection Time: 0 11/12/18 7:20 AMResult Value Ref Range Phosphorus 2.9 2.5 - 4.9 mg/dLLACTIC ACI D Collection Time: 11/12/18 7:20 AMResult Value Ref Range Lactic acid 0.9 0.4 - 2. 0 MMOL/LABG:No results for input(s): PH, PCO2, PO2, HCO3, FIO2 in the last 72 tammy rs.Recent Glucose Results:Lab ResultsComponent Value Date/Time GLU 79 11/12/2018 07:20 AM@[email or web address]@[facility] Results Procedure Component Value Units Date/Time CULTURE, BLOOD [[id number]] Col lected: 11/07/181999 Order Status: Completed Specimen: Blood Updated: 640 Special Requests: NO SPECIAL REQUESTS Culture result: NO GROWTH 5 DA YS CULTURE, BLOOD [[id number]] Collected: 11/07/182009 Order Status: Completed S pecimen: Blood Updated: 11/12/18640 Special Requests: NO SPECIAL REQUESTS C ulture result: NO GROWTH 5 DAYS STREP PNEUMO AG, URINE [[id number]] Collected: 0700 Order Status: Completed Specimen: Other from Urine, random Updated: 11/09048 Strep pneumo Ag, urine NEGATIVE Comment:Presumptive negative suggests no current or recent pneumococcal infection.Infection due to S.pneumonia c annot beruled out since the antigen presentin the sample may be below the detectionlim it of the test. This test is notintended as a substitute for gram stainand bacterial c ulture Method IMMUNOCHROMATOGRAPHIC MEMBRANE ASSAY LEGIONELLA PNEUMOPHILA AG , URINE [[id number]] Collected: 11/08/18 1145 Order Status: Completed Specimen: Urin e Updated: 11/09/18 1048 Legionella Ag, urine NEGATIVE Comment:PRESUMPTIVE NEGA TIVE forL.pneumophila Serogroup 1Antigen in urine,suggestingno recent or current inf ection.Infection due to Legionellacannot be ruled out since otherserogroups and spec ies may causedisease,antigen may not bepresent in urine in earlyinfection, an d the level ofantigen present in the urinemay be below the detectionlimit of the test. Method IMMUNOCHROMATOGRAPHIC MEMBRANE ASSAY CULTURE, URINE [[id number]] Order S tatus: Sent Specimen: Urine from Clean catchImages:@[email or web address]@Cta Chest W Or W Wo ContResult Date: 11/08/2018Examination: CTA Chest ? PE angiography History: Hypo magdy; rule out pneumoniaversus pulmonary embolism Priors: None Technique: Low-d ose, multiplanar,helical CTA chest was performed with bolus IV injection from lung apices tobases. 3D-reformatted images were obtained and reviewed on a [employer] d viewingworkstation and directly supervised. Contrast: A total of 71 mL of Isovue-370 was administered intravenously for this procedure. Findings: No evidence ofpulmo nary embolism is seen. There is decreased size of the right hemithorax fromchronic scarring and retraction with mediastinal shift left to right.Additional area of c onsolidation is seen in the right lower lobe and suggestssuperimposed pneumonia with subsegmental atelectasis. Subsegmental atelectasisis also noted in the left jorge g base, with pleural parenchymal scarring. Lowlung volumes are seen. No pneumothora x seen. Aorta normal in caliber withoutaneurysm or dissection. Mediastin um no adenopathy. Mediastinal shift is seen inthe left and right as a result of chr onic changes in the right hemithorax.Heart shows no chamber enlargement or pericard ial effusion. No acute fracturesseen in the bony thorax, sternum, manubrium and rib cage. Multiple compressiondeformities are seen in the mid and lower thoracic spine , with superimposedspondyloarthropathy. Cannot exclude acute fracture.Impression : No evidence of pulmonary embolism Right lower lobe pneumoniasuggested. Incidenta l scarring and retraction in the right hemithorax fromremote/chronic inflammato ry disease and/or trauma. Bibasilar subsegmentalatelectasis. Report Electron ically Signed By: Pawel Zafar M.D. -11/08/2018 12:40 AMXr Chest PortResult D ate: 11/07/2018XR CHEST PORT CLINICAL INDICATION PROVIDED:. "sob." COMPARISON: . 09/26/2015.FINDINGS:. The pericardial/cardiac silhouette is enlarg ed in the transversedimension. There is no pulmonary vascular congestion or interst itial edema.Linear density in the left lung base and faint densities in the right mi d tolower lung likely represent atelectasis. There is no lobar consolidation oreffusi on. There is no pneumothorax.IMPRESSION:. Bilateral lower lung atelectasis. No donna dence of consolidation oreffusion.Medications:Current Facility- Administered MedicationsMedication Dose Route Frequency albuterol-ipratropium (DUO-NE B) 2.5 MG-0.5 MG/3 ML 3 mL Nebulization Q6H RT LORazepam (ATIVAN) injection 0.5 mg 0.5 mg IntraVENous Q12H PRN 0.9% sodium chloride 1,000 mL with mvi, adult no.4 w ith vit K 10 mL, [id number] mg, folic acid 1 mg infusion IntraVENous Q24H dextrose 5 % - 0.45% NaCl infusion 50 mL/hr IntraVENous CONTINUOUS heparin (porcine ) injection 5,000 Units 5,000 Units SubCUTAneous Q12H albuterol-ipratropium (DUO-NEB) 2.5 MG-0.5 MG/3 ML 3 mL Nebulization Q4H PRN methylPREDNISolone (PF) (SOLU-MEDROL) injection 40 mg 40 mg IntraVENous Q6H cinacalcet (SENSIPAR) t ablet 60 mg 60 mg Oral DAILY lamoTRIgine (LaMICtal) tablet 50 mg 50 mg Oral BID ALPRAZolam (XANAX) tablet 0.25 mg 0.25 mg Oral DAILY cefTRIAXone (ROCEPHIN) 1 g i n 0.9% sodium chloride (MBP/ADV) 50 mL MBP 1 gIntraVENous Q24H azithromycin (ZITHROM AX) 500 mg in 0.9% sodium chloride 250 mL IVPB 500 mgIntraVENous Q24H budesonide (PULMICORT) 500 mcg/2 ml nebulizer suspension 500 mcg NebulizationBID RTAc tive Problems: COPD (chronic obstructive pulmonary disease) ([facility]) (11/08/2018) Ac manzanita respiratory distress (11/08/2018) Pneumonia (11/08/2018) COPD exacerbation ([facility]) (11/08/2018)Assessment:COPD (chronic obstructive pulmonary disease) ([facility]) () Acute respiratory distress (11/08/2018) Pneumonia (11/08/2018) [place] exacerbation ([facility]) (11/08/2018) Acute resp failure combined, pneumonia R L L AND L L L ON CAT SCAN CHEST acute copd exacerbation P .. E . ruled out. BILAT ERAL BASAL ATELECTASESPLAN,Monitoring,Iv CEFTRIAXONE AND AZITHROMYCIN D/C S teroids, BRONCHOSPASM RESOLVEDbipap prn and at night. DUO NEB QIDD/w [facility]. Krystian Monae MD F.C.C.P.November 12, 20181:27 PM Name Value Range Interpretation Code Description Data Harriett rce(s) Supporting Document(s ) ID Date Data Source [id number] 11/12/2018 09:29:48 AM EDT [facility] ID Progress Note11/12/2018Subjective:Siri ent with MR,schizophrenia,non verbal.Pt failed swallow evaluation yesterday and multiple attempts to put NG tube wereunsucessfulUnable to provide any his tory.Legionella and strep pneumo Ag are negativeAfebrileWBC downtrending at 11KB lood cx NGTDObjective:Vitals:Patient Vitals for the past 24 hrs: BP Temp Pulse Resp VlI833/31/19 0745 124/79 97.9 F (36.6 C) 68 18 92 %11/12/18 0529 142/90 97.5 F (36. 4 C) 66 18 90 %11/11/182002 (!) 147/94 98.5 F (36.9 C) 83 18 90 %11/11/18 1703 (!) 130/95 98.4 F (36.9 C) 70 18 91 %Tmax: Temp (24hrs), Av.1 F (36.7 C), Min :97.5 F (36.4 C), Max:98.5 F(36.9 C)Physical Exam:General: Awake non verb al,tries to hit examiner with hand, no distressEyes: Conjunctivae/corneas sudhakar r. PERRLNeck: Supple, symmetrical, trachea midline, no adenopathyLungs: Bilateral breath sounds with basal crackles..Heart: Regular rate and rhythm, S1, S2 normalAb domen: Soft, non-tender. Bowel sounds normal.Back: No CVA tenderness.Extremi ties: No cyanosis or edema. Covered in mittensPulses: 2+ and symmetric all extr emities.Skin: Skin color, texture, turgor normal. No rashes or lesionsLymph nodes: Cervical, supraclavicular, and axillary nodes normal.Current Facility-Administer ed MedicationsMedication Dose Route Frequency albuterol-ipratropium (DUO-NEB) 2.5 MG- 0.5 MG/3 ML 3 mL Nebulization Q6H RT LORazepam (ATIVAN) injection 0.5 mg 0.5 mg IntraVENous Q12H PRN 0.9% sodium chloride 1,000 mL with mvi, adult no.4 w ith vit K 10 mL, [id number] mg, folic acid 1 mg infusion IntraVENous Q24H dextrose 5 % - 0.45% NaCl infusion 50 mL/hr IntraVENous CONTINUOUS heparin (porcine ) injection 5,000 Units 5,000 Units SubCUTAneous Q12H albuterol-ipratropium (DUO-NEB) 2.5 MG-0.5 MG/3 ML 3 mL Nebulization Q4H PRN methylPREDNISolone (PF) (SOLU-MEDROL) injection 40 mg 40 mg IntraVENous Q6H cinacalcet (SENSIPAR) t ablet 60 mg 60 mg Oral DAILY lamoTRIgine (LaMICtal) tablet 50 mg 50 mg Oral BID ALPRAZolam (XANAX) tablet 0.25 mg 0.25 mg Oral DAILY cefTRIAXone (ROCEPHIN) 1 g i n 0.9% sodium chloride (MBP/ADV) 50 mL MBP 1 gIntraVENous Q24H azithromycin (ZITHROM AX) 500 mg in 0.9% sodium chloride 250 mL IVPB 500 mgIntraVENous Q24H budesonide (PULMICORT) 500 mcg/2 ml nebulizer suspension 500 mcg NebulizationBID RTLa bs:Recent Labs 11/11/1905WBC 11.7* -- 14.4*HGB 14.9 -- 13.5*PLT 238 -- 227BUN 15 15 17CREA 0.49* 0.60* 0.55*SGOT 43* 29 25AP 51 48 46TBILI 0.6 0.5 0.3Cultures:Lab ResultsComponent Value Date/Time Culture result: NO GROWTH 5 DAYS 11/07/2018 08:10 PM Culture result: NO GROWTH 5 DAYS 019 08:00 PMRadiology:No results found.Assessment: R/o sepspis Nosocomi al PNA COPD DysphagiaPlan:1. Continue Iv rocephin.Laurel Gonzalez 926 AM Name Value Range Interpretation Code Description Data [facility] rce(s) Supporting Document(s ) ID Date Data Source [id number] 11/12/2018 07:40:18 AM EDT [facility] Bedside shift change report given to Mino Parada RN (oncoming nurse) byDannielle Medina RN Report included the following informa tion SBAR, Kardex, Intake/Output, MAR, Recent Results and Med RecStatus. Name Value Range Interpretation Code Description Data [facility] rce(s) Supporting Document(s ) ID Date Data Source [id number] 11/12/2018 08:15:38 AM EDT [facility] Name Value Range Interpretation Description Data Sup porting Code Source(s) Document(s ) Phosphate 2.9 mg/dL 2.5-4.9 [facility] - [Mass/volume] Community in Serum or Hospital Plasma ID Date Data Source [id number] 11/12/2018 08:15:38 AM EDT [facility] Name Value Range Interpretation Description Data Sup porting Code Source(s) Document(s ) Magnesium 1.8 mg/dL 1.6-2.6 [facility] - [Mass/volume] Community in Serum or Hospital Plasma ID Date Data Source [id number] 11/12/2018 08:15:38 AM EDT [facility] Name Value Range Interpretation Description Data Sup porting Code Source(s) Document(s ) Sodium 142 136-145 [facility] - [Moles/volume] in mmol/L [facility] Serum or Plasma Hospital Potassium 3.8 3.5-5.1 [facility] - [Moles/volume] in mmol/L [facility] Serum or Plasma Hospital Chloride 104 98-107 [facility] - [Moles/volume] in mmol/L [facility] Serum or Plasma [facility] Carbon dioxide, 28 21-32 [facility] - total mmol/L [facility] [Moles/volume] in Hospital Serum or Plasma Anion gap in Serum 14 10-20 [facility] - or Plasma mmol/L [facility] Glucose 79 74-106 [facility] - [Mass/volume] in mg/dL [facility] Serum or Plasma [facility] Urea nitrogen 15 7-18 [facility] - [Mass/volume] in mg/dL [facility] Serum or Plasma [facility] Creatinine 0.49 0.70-1. Below low normal [facility] - [Mass/volume] in mg/dL 30 [facility] Serum or Plasma Hospital Glomerular >60 [facility] - filtration Community rate/1.73 sq M Hospital predicted among blacks [Volume Rate/Area] in Serum or Plasma by Creatinine-based formula (MDRD) Glomerular >60 [facility] - filtration Community rate/1.73 sq M Hospital predicted among non-blacks [Volume Rate/Area] in Serum or Plasma by Creatinine-based formula (MDRD) Calcium 9.0 8.5-10. [facility] - [Mass/volume] in mg/dL 1 [facility] Serum or Plasma Hospital Bilirubin.total 0.6 0.2-1.0 [facility] - [Mass/volume] in mg/dL [facility] Serum or Plasma Hospital Alanine 30 U/L 13-61 [facility] - aminotransferase Community [Enzymatic Hospital activity/volume] in Serum or Plasma Aspartate 43 U/L 15-37 Above high [facility] - aminotransferase normal Community [Enzymatic Hospital activity/volume] in Serum or Plasma by With P-5'-P Alkaline 51 U/L 45-117 [facility] - phosphatase Community [Enzymatic Hospital activity/volume] in Serum or Plasma Protein 6.8 6.4-8.2 [facility] - [Mass/volume] in g/dL [facility] Serum or Plasma [facility] Albumin 3.2 3.5-4.7 Below low normal [facility] - [Mass/volume] in g/dL Community Serum or Plasma by [facility] Bromocresol purple (BCP) dye binding method Globulin 3.6 1.7-4.7 [facility] - [Mass/volume] in g/dL [facility] Serum by [facility] calculation Albumin/Globulin 0.9 0.7-2.8 [facility] - [Mass Ratio] in [facility] Serum or Plasma Hospital ID Date Data Source [id number] 11/12/2018 08:03:08 AM EDT [facility] Name Value Range Interpretation Description Data Sup porting Code Source(s) Document(s ) Lactate 0.9 0.4-2.0 [facility] - [Moles/volu MMOL/L Community me] in [facility] Serum or Plasma ID Date Data Source [id number] 11/12/2018 07:56:58 AM EDT [facility] Name Value Range Interpretation Description Data Sup porting Code Source(s) Document(s ) Leukocytes 11.7 4.8-10.6 Above high normal [facility] - [#/volume] in K/uL [facility] Blood by [facility] Automated count Erythrocytes 4.61 4.70-6.0 Below low normal [facility] - [#/volume] in M/uL 0 [facility] Blood by [facility] Automated count Hemoglobin 14.9 14.0-18. [facility] - [Mass/volume] in g/dL 0 [facility] Blood [facility] Hematocrit 43.4 % 42.0-52. [facility] - [Volume 0 Community Fraction] of Hospital Blood by Automated count Erythrocyte mean 94.1 FL 81.0-94. Above high normal [facility] - corpuscular 0 Community volume [Entitic Hospital volume] by Automated count Erythrocyte mean 32.3 PG 27.0-35. [facility] - corpuscular 0 [facility] [Entitic mass] by Automated count Erythrocyte mean 34.3 30.7-37. [facility] - corpuscular g/dL 3 [facility] hemoglobin [facility] concentration [Mass/volume] by Automated count Erythrocyte 13.8 % 11.5-14. [facility] - distribution 0 Community width [Ratio] by Hospital Automated count Platelets 238 K/uL 130-400 [facility] - [#/volume] in Community Blood by Hospital Automated count Platelet mean 9.7 FL 9.2-11.8 [facility] - volume [Entitic Community volume] in Blood Hospital by Automated count Segmented 79 % 48.0-72. Above high normal [facility] - neutrophils/100 0 Community leukocytes in Hospital Blood Lymphocytes/100 13 % 18.0-40. Below low normal [facility] - leukocytes in 0 [facility] Blood Hospital Monocytes/100 8 % 2.0-12.0 [facility] - leukocytes in [facility] Blood [facility] Eosinophils/100 0 % 0.0-7.0 [facility] - leukocytes in [facility] Blood [facility] Basophils/100 0 % 0.0-3.0 [facility] - leukocytes in [facility] Blood [facility] Segmented 9.2 K/UL 1.5-6.6 Above high normal [facility] - neutrophils Community [#/volume] in Hospital Blood Lymphocytes 1.6 K/UL 1.5-3.5 [facility] - [#/volume] in [facility] Blood Hospital Monocytes 0.9 K/UL 0.0-1.0 [facility] - [#/volume] in [facility] Eosinophils 0.0 K/UL 0.0-0.7 [facility] - [#/volume] in [facility] Basophils 0.0 K/UL 0.0-0.1 [facility] - [#/volume] in [facility] Differential [facility] - cell count [facility] Immature 1 % 0.0-2.0 [facility] - granulocytes/100 Community leukocytes in Hospital Blood by Automated count ID Date Data Source [id number] 11/12/2018 08:15:38 AM EDT [facility] Name Value Range Interpretation Description Data Sup porting Code Source(s) Document(s ) Phosphate 2.9 mg/dL 2.5-4.9 [facility] [Mass/volume] [facility] in Serum or Hospital Plasma ID Date Data Source [id number] 11/12/2018 08:15:38 AM EDT [facility] Name Value Range Interpretation Description Data Sup porting Code Source(s) Document(s ) Sodium 142 136-145 [facility] - [Moles/volume] in mmol/L [facility] Serum or [facility] Potassium 3.8 3.5-5.1 [facility] - [Moles/volume] in mmol/L [facility] Serum or Plasma [facility] Chloride 104 98-107 [facility] - [Moles/volume] in mmol/L [facility] Serum or Plasma [facility] Carbon dioxide, 28 21-32 [facility] - total mmol/L [facility] [Moles/volume] in [facility] Serum or Plasma [facility] Anion gap in Serum 14 10-20 [facility] - or Plasma mmol/L [facility] Glucose 79 74-106 [facility] - [Mass/volume] in mg/dL [facility] Serum or [facility] Urea nitrogen 15 7-18 [facility] - [Mass/volume] in mg/dL [facility] Serum or Plasma [facility] Creatinine 0.49 0.70-1. Below low normal [facility] - [Mass/volume] in mg/dL 30 Good Serum or Plasma [facility] Glomerular >60 [facility] - filtration Good rate/1.73 sq M Taoist predicted among Hospital blacks [Volume Rate/Area] in Serum or Plasma by Creatinine-based formula (MDRD) Glomerular >60 [facility] - filtration Good rate/1.73 sq M Taoist predicted among Hospital non-blacks [Volume Rate/Area] in Serum or Plasma by Creatinine-based formula (MDRD) Calcium 9.0 8.5-10. [facility] - [Mass/volume] in mg/dL 1 Good Serum or Plasma [facility] Bilirubin.total 0.6 0.2-1.0 [facility] - [Mass/volume] in mg/dL Good Serum or Plasma [facility] Alanine 30 U/L 13-61 [facility] - aminotransferase Good [Enzymatic Taoist activity/volume] in Hospital Serum or Plasma Aspartate 43 U/L 15-37 Above high [facility] - aminotransferase normal Good [Enzymatic Taoist activity/volume] in Hospital Serum or Plasma by With P-5'-P Alkaline 51 U/L 45-117 [facility] - phosphatase Good [Enzymatic Taoist activity/volume] in Hospital Serum or Plasma Protein 6.8 6.4-8.2 [facility] - [Mass/volume] in g/dL Good Serum or Plasma [facility] Albumin 3.2 3.5-4.7 Below low normal [facility] - [Mass/volume] in g/dL Good Serum or Plasma by Taoist Bromocresol [facility] (BCP) dye binding method Globulin 3.6 1.7-4.7 [facility] - [Mass/volume] in g/dL Good Serum by [facility] Albumin/Globulin 0.9 0.7-2.8 [facility] - [Mass Ratio] in Good Serum or Plasma [facility] ID Date Data Source [id number] 11/12/2018 08:15:38 AM EDT [facility] Name Value Range Interpretation Description Data Sup porting Code Source(s) Document(s ) Magnesium 1.8 mg/dL 1.6-2.6 [facility] - Good [Mass/volume] Taoist in Serum or [facility] Plasma ID Date Data Source [id number] 11/12/2018 08:03:08 AM EDT [facility] Name Value Range Interpretation Description Data Sup porting Code Source(s) Document(s ) Lactate 0.9 0.4-2.0 [facility] - Good [Moles/volu MMOL/L [facility]] in Hospital Serum or Plasma ID Date Data Source [id number] 11/12/2018 07:56:58 AM EDT [facility] Name Value Range Interpretation Description Data Sup porting Code Source(s) Document(s ) Leukocytes 11.7 4.8-10.6 Above high normal [facility] - [#/volume] in K/uL Good Blood by [facility] Erythrocytes 4.61 4.70-6.0 Below low normal [facility] - [#/volume] in M/uL 0 Good Blood by [facility] Hemoglobin 14.9 14.0-18. [facility] - [Mass/volume] in g/dL 0 [facility] Blood [facility] Hematocrit 43.4 % 42.0-52. [facility] - [Volume 0 Good Fraction] of Taoist Blood by Hospital Automated count Erythrocyte mean 94.1 FL 81.0-94. Above high normal [facility] - corpuscular 0 Good volume [Entitic Taoist volume] by Hospital Automated count Erythrocyte mean 32.3 PG 27.0-35. [facility] - corpuscular 0 Good hemoglobin Taoist [Entitic mass] Hospital by Automated count Erythrocyte mean 34.3 30.7-37. [facility] - corpuscular g/dL 3 Good hemoglobin Taoist concentration Hospital [Mass/volume] by Automated count Erythrocyte 13.8 % 11.5-14. [facility] - distribution 0 Good width [Ratio] by Taoist Automated count Hospital Platelets 238 K/uL 130-400 [facility] - [#/volume] in [facility] Blood by Taoist Automated count Hospital Platelet mean 9.7 FL 9.2-11.8 [facility] - volume [Entitic Good volume] in [facility] by Automated Hospital count Segmented 79 % 48.0-72. Above high normal [facility] - neutrophils/100 0 Good leukocytes in [facility] Lymphocytes/100 13 % 18.0-40. Below low normal [facility] - leukocytes in 0 [facility] Monocytes/100 8 % 2.0-12.0 [facility] - leukocytes in [facility] Eosinophils/100 0 % 0.0-7.0 [facility] - leukocytes in [facility] Basophils/100 0 % 0.0-3.0 [facility] - leukocytes in [facility] Segmented 9.2 K/UL 1.5-6.6 Above high normal [facility] - neutrophils Good [#/volume] in [facility] Lymphocytes 1.6 K/UL 1.5-3.5 [facility] - [#/volume] in [facility] Monocytes 0.9 K/UL 0.0-1.0 [facility] - [#/volume] in [facility] Eosinophils 0.0 K/UL 0.0-0.7 [facility] - [#/volume] in [facility] Basophils 0.0 K/UL 0.0-0.1 [facility] - [#/volume] in [facility] Differential [facility] - cell count Good method [facility] Immature 1 % 0.0-2.0 BSS - granulocytes/100 Good leukocytes in Taoist Blood by Hospital Automated count ID Date Data Source [id number] 11/11/2018 11:23:49 PM EDT [facility] Patient continues to thrash head and rem ove nasal cannula. Pulse ox reading<90%. Patient placed on bipap with assistance from nursing staff. Continuouspulse oximetry in place, side rails padded for protecti on and mitten restraintsremain intact. Will continue to monitor closely. Name Value Range Interpretation Code Description Data Harriett rce(s) Supporting Document(s ) ID Date Data Source [id number] 11/11/2018 10:04:37 PM EDT [facility] Assisted Michell Zuniga NP with NG Tube i nsertion. Patient very agitated hittinghis face. Ativan 0.5 ordered and given IV. W ill reattempt once patient iscalmer. Name Value Range Interpretation Code Description Data [facility] rce(s) Supporting Document(s ) ID Date Data Source [id number] 11/11/2018 07:20:27 PM EDT [facility] Problem: Dysphagia (Adult)Goal: *Acute G oals and Plan of Care (Insert Text)DescriptionSpeech therapy goals:Ini tiated 11/11/2018Continue NPO statusDiet: alternate means nutrition and hydrationS peech therapy goals:Initiated . Per swallowing evaluation, recommendation is NPO. Alternate means ofnutrition and hydration are recommended at this time.S peech therapy goals:Initiated . NPO. Alternate means of nutrition and hy dration are recommended, at thistime.Note:SPEECH LANGUAGE PATHOLOGY BEDSIDE SWALLOW EVALUATIONPatient: Evelio Carlin (68 y.o. male)Date: 11/11/2018P rimary Diagnosis: COPD (chronic obstructive pulmonary disease) ([facility]) [J44.9]Acute re spiratory distress [R06.03]COPD exacerbation ([facility]) [J44.1]Pneumonia [J18.9]Precaution s: aspirationCurrent Diet (Recommendation): Continue NPO statusDiet: alternate means nutrition and hydrationASSESSMENT :Based on the objective data described below, the patient presents with severedysphagia. During Trial per oral feedings PtuGalberto Velez strated O2 drop from 94% to83% This date.Patient will benefit from skilled i ntervention to address the above impairments.Patient's rehabilitation pot ential is considered to be GuardedFactors which may influence rehabilitation poten tial include:? None noted? Mental ability/status? Med ical condition? Home/family situation and support systems? Safety awareness? Pain tolerance/management? 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) Pneumonia Psychiatric disorder Pulmonary emboli ([facility]) Schizophrenia ([facility])History reviewed. No pertinent surgical history. Diet prior to admission: unknownPrior Level of Function/Home Situation: unknownHome SituationHome Environment: senior living facilityOne/Two Story Residence: Other ( Comment)Living Alone: NoSupport Systems: senior living facilityPatient Expects to be Discharged to:: UnknownCurrent DME Used/Available at Home: WheelchairCognit britni and Communication Status:Neurologic State: ConfusedOrientation Level: Disori ented [id number]: Unable to assess (comment)Perception: Tactile, VisualPers everation: Tactile cues provided, Verbal cues provided, Visual cues providedSafety/[place] gement: Lack of insight into deficitsOral Assessment:Oral AssessmentLabial: Decrea sed seal;Decreased rate;Impaired coordinationDentition: Limited;PoorOral Hygiene: poorLingual: Decreased rate;Decreased strength;IncoordinatedVel um: Unable to visualizeMandible: RestrictedGag Reflex: ReducedP.O. Trials :Patient Position: upright in bedVocal quality prior to P.O.: (not demonstrated )Consistency Presented: PureeHow Presented: SENIOR FUND ACCOUNTANT-fed/presentedHow Much: 2(ounces)Bolu s Acceptance: ImpairedBolus Formation/Control: ImpairedType of Impai rment: Delayed;Piecemeal;SpillagePropulsion: Discoordination;Delayed (# of seconds)Or al Residue: 10-50% of bolusInitiation of Swallow: Delayed (# of seconds)Laryngeal Elevation: Weak;DecreasedAspiration Signs/Symptoms: Decrease in O2 saturatio ns;Clear throat;Runnynose;Facial redness;Watery eyes;Increase in RRPharyn geal Phase Characteristics: Suspected pharyngeal residue;Effortfulswallow;Easi ly fatiguedEffective Modifications: NoneCues for Modifications: MaximalOral Phase Sev erity: Moderate-severePharyngeal Phase Severity : SevereP.O. Trial 2:-PO Trials 2Consistency Presented: Honey thick liquidHow Presented: SENIOR FUND ACCOUNTANT-fed/presentedCo nsistency Amount: 2(teaspoons)Bolus Acceptance: ImpairedBolus Formation/Cont rol: ImpairedType of Impairment: Delayed;SpillagePropulsion: Discoordinat ionOral Residue: NoneInitiation of Swallow: Severely delayedAspiration Signs/Symptom s: Decrease in O2 saturations;Facial rednessEffective Modifications: NoneCues for Modifications: MaximalP.O. Trial 3:-PO Trials 3Consistency Presented: Honey thi ck liquidHow Presented: SENIOR FUND ACCOUNTANT-fed/presentedHow Much: 2(teaspoons)Bolus Acceptance: Impa iredBolus Formation/Control: ImpairedType of Impairment: DelayedPropulsion: Delayed;D iscoordinationOral Residue: NoneInitiation of Swallow: Severely delayedAspiration Sign s/Symptoms: Decrease in O2 saturations;Delayed cough/throatclear;Fa cial rednessEffective Modifications: NoneCues for Modifications: MaximalP.O. Trial 4:- PO Trials 4Consistency Presented: Mechanical softHow Presented: SENIOR FUND ACCOUNTANT-fed/presentedCons istency Amount: 2(ounces)Bolus Acceptance: ImpairedBolus Formation/Control: Impaire dType of Impairment: DelayedPropulsion: DelayedOral Residue: NoneInitiation of S wallow: Severely delayedAspiration Signs/Symptoms: Watery eyes;Weak cough;D ecrease in O2 saturationsEffective Modifications: NoneCues for Modification s: MaximalP.O. Trial 5:-Pain:After treatment:? Patient left in n o apparent distress sitting up in chair? Patient left in no apparent distre ss in bed? Call botello left within reach? Nursing notified? Caregiver present? Bed alarm activatedCOMMUNICATION/EDUCATION:T he patient's plan of care including recommendations, planned interventions, andrecommended diet changes were discussed with: Speech Therapist and RegisteredNjg graham.? Posted safety precautions in patient's room.? Patient/fami ly have participated as able in goal setting and planof care.? Patient/fam pierre agree to work toward stated goals and plan of care.? Patient unders tands intent and goals of therapy, but is neutralabout his/her participation.? Patient is unable to participate in goal setting and plan of care.Thank you for this referral.Bianca Dobbs MS, CCC-SLPTime Calculation: 12 mins Name Value Range Interpretation Code Description Data Harriett rce(s) Supporting Document(s ) ID Date Data Source [id number] 11/11/2018 06:18:30 PM EDT [facility] ID Progress Note11/11/2018Subjective:Siri ent with MR,schizophrenia,non verbal.Unable to provide any history.Afebrile ,wbc costa nding downObjective:Vitals:Patient Vitals for the past 24 hrs: BP Temp Pulse Resp SpO2 11/11/18 1703 (!) 130/95 98.4 F (36.9 C) 70 18 91 %11/11/18 0836 - - - - 93 % 9 0753 (!) 130/99 96.7 F (35.9 C) 84 20 95 %11/11/18 0409 154/90 98.5 F (36.9 C) 86 25 95 %11/11/18 0047 - - - - 92 %11/10/18 2102 149/88 - - - -11/10/182007 - - - - 93 %11/10/18 1947 - 98.4 F (36.9 C) 85 22 -Tmax: Temp (24hrs), Av F (36.7 C ), Min:96.7 F (35.9 C), Max:98.5 F(36.9 C)Physical Exam:General: Awake non verb al, cooperative, no distressEyes: Conjunctivae/corneas clear. PERRLNeck: S upple, symmetrical, trachea midline, no adenopathyLungs: Bilateral breath soun ds with basal crackles..Heart: Regular rate and rhythm, S1, S2 normalAbdomen: Soft , non-tender. Bowel sounds normal.Back: No CVA tenderness.Extremities: No cyanosis or edema.Pulses: 2+ and symmetric all extremities.Skin: Skin color, texture, t urgor normal. No rashes or lesionsLymph nodes: Cervical, supraclavicular, and ax illary nodes normal.Current Facility-Administered MedicationsMedicat ion Dose Route Frequency 0.9% sodium chloride 1,000 mL with mvi, adult no.4 w ith vit K 10 mL, [id number] mg, folic acid 1 mg infusion IntraVENous Q24H dextrose 5 % - 0.45% NaCl infusion 50 mL/hr IntraVENous CONTINUOUS heparin (porcine ) injection 5,000 Units 5,000 Units SubCUTAneous Q12H albuterol-ipratropium (DUO-NEB) 2.5 MG-0.5 MG/3 ML 3 mL Nebulization Q4H PRN methylPREDNISolone (PF) (SOLU-MEDROL) injection 40 mg 40 mg IntraVENous Q6H cinacalcet (SENSIPAR) t ablet 60 mg 60 mg Oral DAILY lamoTRIgine (LaMICtal) tablet 50 mg 50 mg Oral BID ALPRAZolam (XANAX) tablet 0.25 mg 0.25 mg Oral DAILY cefTRIAXone (ROCEPHIN) 1 g i n 0.9% sodium chloride (MBP/ADV) 50 mL MBP 1 gIntraVENous Q24H azithromycin (ZITHROM AX) 500 mg in 0.9% sodium chloride 250 mL IVPB 500 mgIntraVENous Q24H budesonide (PULMICORT) 500 mcg/2 ml nebulizer suspension 500 mcg NebulizationBID RT albuterol-ipratropium (DUO-NEB) 2.5 MG-0.5 MG/3 ML 3 mL Nebulization Q4HWA RTLabs: Recent Labs 11/10/1904WBC -- 14.4* 17.0*HGB -- 13.5* 14.0PLT -- 227 204BUN 15 17 15CREA 0.60* 0.55* 0.50*SGOT 29 25 17AP 48 46 4 6TBILI 0.5 0.3 0.4Cultures:Lab ResultsComponent Value Date/Time Culture result: NO GROWTH 4 DAYS 11/07/2018 08:10 PM Culture result: NO GROWTH 4 DAYS 019 08:00 PMRadiology:No results found.Assessment: R/o sepspis Nosocomi al PNA COPD Plan:1. Continue Iv azithromycin and rocephin.2. Follow cultures.Laurel Sanchez 20186:17 PM Name Value Range Interpretation Code Description Data Harriett rce(s) Supporting Document(s ) ID Date Data Source [id number] 11/11/2018 12:14:43 PM EDT [facility] TC with [facility] liaison pt is long t erm at [facility] and can return atdischarge. Name Value Range Interpretation Code Description Data Harriett rce(s) Supporting Document(s ) ID Date Data Source [id number] 11/11/2018 07:18:07 AM EDT [facility] Bedside and Verbal shift change report given to Bernarda PITTS (oncoming nurse) Mitul Covarrubias RN (offgoing nurse). Re port included the following informationSBAR, Kardex, MAR and Recent Results. Name Value Range Interpretation Code Description Data Harriett rce(s) Supporting Document(s ) ID Date Data Source [id number] 11/11/2018 08:00:19 AM EDT [facility] Name Value Range Interpretation Description Data Sup porting Code Source(s) Document(s ) Sodium 141 136-145 [facility] - [Moles/volume] in mmol/L [facility] Serum or Plasma Hospital Potassium 4.0 3.5-5.1 [facility] - [Moles/volume] in mmol/L [facility] Serum or Plasma Hospital Chloride 106 98-107 [facility] - [Moles/volume] in mmol/L [facility] Serum or Plasma Hospital Carbon dioxide, 28 21-32 [facility] - total mmol/L Community [Moles/volume] in Hospital Serum or Plasma Anion gap in Serum 11 10-20 [facility] - or Plasma mmol/L [facility] Glucose 100 74-106 [facility] - [Mass/volume] in mg/dL [facility] Serum or Plasma Hospital Urea nitrogen 15 7-18 [facility] - [Mass/volume] in mg/dL [facility] Serum or Plasma Hospital Creatinine 0.60 0.70-1. Below low normal [facility] - [Mass/volume] in mg/dL 30 [facility] Serum or Plasma Hospital Glomerular >60 [facility] - filtration Community rate/1.73 sq M Hospital predicted among blacks [Volume Rate/Area] in Serum or Plasma by Creatinine-based formula (MDRD) Glomerular >60 [facility] - filtration Community rate/1.73 sq M Hospital predicted among non-blacks [Volume Rate/Area] in Serum or Plasma by Creatinine-based formula (MDRD) Calcium 9.0 8.5-10. [facility] - [Mass/volume] in mg/dL 1 [facility] Serum or Plasma Hospital Bilirubin.total 0.5 0.2-1.0 [facility] - [Mass/volume] in mg/dL [facility] Serum or Plasma Hospital Alanine 23 U/L 13-61 [facility] - aminotransferase Community [Enzymatic Hospital activity/volume] in Serum or Plasma Aspartate 29 U/L 15-37 [facility] - aminotransferase Community [Enzymatic Hospital activity/volume] in Serum or Plasma by With P-5'-P Alkaline 48 U/L 45-117 [facility] - phosphatase Community [Enzymatic Hospital activity/volume] in Serum or Plasma Protein 6.5 6.4-8.2 [facility] - [Mass/volume] in g/dL [facility] Serum or Plasma [facility] Albumin 3.0 3.5-4.7 Below low normal [facility] - [Mass/volume] in g/dL [facility] Serum or Plasma by Hospital Bromocresol purple (BCP) dye binding method Globulin 3.5 1.7-4.7 [facility] - [Mass/volume] in g/dL [facility] Serum by Hospital calculation Albumin/Globulin 0.9 0.7-2.8 [facility] - [Mass Ratio] in [facility] Serum or Plasma Hospital ID Date Data Source [id number] 11/11/2018 08:00:19 AM EDT [facility] - [facility] Name Value Range Interpretation Description Data Sup porting Code Source(s) Document(s ) Sodium 141 136-145 [facility] - [Moles/volume] in mmol/L [facility] Serum or [facility] Potassium 4.0 3.5-5.1 [facility] - [Moles/volume] in mmol/L [facility] or [facility] Chloride 106 98-107 [facility] - [Moles/volume] in mmol/L Good Serum or Plasma [facility] Carbon dioxide, 28 21-32 [facility] - total mmol/L Good [Moles/volume] in Taoist Serum or Plasma Hospital Anion gap in Serum 11 10-20 [facility] - or Plasma mmol/L [facility] Glucose 100 74-106 [facility] - [Mass/volume] in mg/dL Good Serum or Plasma [facility] Urea nitrogen 15 7-18 [facility] - [Mass/volume] in mg/dL Good Serum or Plasma [facility] Creatinine 0.60 0.70-1. Below low normal [facility] - [Mass/volume] in mg/dL 30 Good Serum or Plasma [facility] Glomerular >60 [facility] - filtration Good rate/1.73 sq M Taoist predicted among Hospital blacks [Volume Rate/Area] in Serum or Plasma by Creatinine-based formula (MDRD) Glomerular >60 [facility] - filtration Good rate/1.73 sq M Taoist predicted among Hospital non-blacks [Volume Rate/Area] in Serum or Plasma by Creatinine-based formula (MDRD) Calcium 9.0 8.5-10. [facility] - [Mass/volume] in mg/dL 1 Good Serum or Plasma [facility] Bilirubin.total 0.5 0.2-1.0 [facility] - [Mass/volume] in mg/dL Good Serum or Plasma [facility] Alanine 23 U/L 13-61 [facility] - aminotransferase Good [Enzymatic Taoist activity/volume] in Hospital Serum or Plasma Aspartate 29 U/L 15-37 [facility] - aminotransferase Good [Enzymatic Taoist activity/volume] in Hospital Serum or Plasma by With P-5'-P Alkaline 48 U/L 45-117 [facility] - phosphatase Good [Enzymatic Taoist activity/volume] in Hospital Serum or Plasma Protein 6.5 6.4-8.2 [facility] - [Mass/volume] in g/dL [facility] Serum or Plasma [facility] Albumin 3.0 3.5-4.7 Below low normal [facility] - [Mass/volume] in g/dL Good Serum or Plasma by Taoist Bromocresol [facility] (BCP) dye binding method Globulin 3.5 1.7-4.7 [facility] - [Mass/volume] in g/dL Good Serum by [facility] Albumin/Globulin 0.9 0.7-2.8 [facility] - [Mass Ratio] in Good Serum or Plasma [facility] ID Date Data Source [id number] 11/10/2018 09:59:24 PM EDT [facility] Problem: Pressure Injury - Risk ofGoal: *Prevention of pressure injuryDescriptionDocument Butch Scale a nd appropriate interventions in the flowsheet.11/10/20182158 by Robles Covarrubias RNOutcome: Progressing Towards GoalNote:Pressure Injury Interventions:S ensory Interventions: Assess changes in LOCMoisture Interventions: Absorbent und erpads, Apply protective barrier, creamsand emollientsActivity Interventions: Pressu re redistribution bed/mattress(bed type)Mobility Interventions: Pressure re distribution bed/mattress (bed type)Nutrition Interventions: Document food/fluid/suppl ement intakeFriction and Shear Interventions: Apply protective barrier, creams andemol lients, HOB 30 degrees or less11/10/20182157 by Gege Covarrubias RNOutcome: Progres sing Towards GoalNote:Pressure Injury Interventions:Sensory Interventions: Ass ess changes in LOCMoisture Interventions: Absorbent underpads, Apply protective ba rrier, creamsand emollientsActivity Interventions: Pressure redistribution b ed/mattress(bed type)Mobility Interventions: Pressure redistribution bed/mattress (be d type)Nutrition Interventions: Document food/fluid/supplement intakeFriction and Shear Interventions: Apply protective barrier, creams andemollients, HOB 30 de grees or lessProblem: Gas Exchange - ImpairedGoal: *Absence of hypoxiaOutcome : Progressing Towards GoalProblem: Non-Violent RestraintsGoal: *No harm/inj ury to patient while restraints in useOutcome: Progressing Towards GoalGoal : *Patient's dignity will be maintainedOutcome: Progressing Towards G oal Name Value Range Interpretation Code Description Data Harriett rce(s) Supporting Document(s ) ID Date Data Source [id number] 11/10/2018 09:58:53 PM EDT [facility] Problem: Pressure Injury - Risk ofGoal: *Prevention of pressure injuryDescriptionDocument Butch Scale a nd appropriate interventions in the flowsheet.Outcome: Progressing Towards G oalNote:Pressure Injury Interventions:Sensory Interventions: Assess changes in LOCMois ture Interventions: Absorbent underpads, Apply protective barrier, creamsand emol lientsActivity Interventions: Pressure redistribution bed/mattress(bed type)Mob ility Interventions: Pressure redistribution bed/mattress (bed type)Nutrition Interve ntions: Document food/fluid/supplement intakeFriction and Shear Interventions: Apply protective barrier, creams andemollients, HOB 30 degrees or lessPro blem: Gas Exchange - ImpairedGoal: *Absence of hypoxiaOutcome: Progressing Towards G oalProblem: Non-Violent RestraintsGoal: *No harm/injury to patient while restraints in useOutcome: Progressing Towards GoalGoal: *Patient's dignity will be maintainedOut come: Progressing Towards Goal Name Value Range Interpretation Code Description Data Harriett rce(s) Supporting Document(s ) ID Date Data Source [id number] 11/10/2018 09:56:55 PM EDT [facility] Progress NoteSILVER [facility]ILL [facility] ,[facility].Krystian Monae MD., F.C.C.P.Stella Hamilton MD., F.C.C.P. [address]W [address] [facility] [address] [place] [address] [phone]: Evelio Carlin Sex: male DOA: 11/07/2018Da te of : 1950 Age: 68 y.o. LOS: LOS: 2 daysSubjective:Mr. Gayla beltran is a 68 y.o. year old male who is being seen for SEVER COPD M,ASP. PNEUMONIAOb jective:Vital Signs:Patient Vitals for the past 24 hrs: BP Temp Pulse Resp NzC139/2 01/01 2102 149/88 - - - -11/10/18 1947 - 98.4 F (36.9 C) 85 22 -11/10/18 1517 140/90 98.4 F (36.9 C) 86 20 93 %11/10/18 1100 138/75 97.8 F (36.6 C) 76 20 96 %11/10 0738 141/90 98.4 F (36.9 C) 85 20 90 %11/10/18 0511 125/90 97.8 F (36.6 C) 89 20 93 %11/09/18 2332 120/75 98.2 F (36.8 C) 84 20 98 %11/09/18 2327 - - - - 97 %P ulse OX:SpO2 Readings from Last 6 Encounters:11/10/18 93%09/26/15 96%@LAST SAO2(6)@Physical Exam:AWAKE NON COMMUNICATIVE CHEST MO ELL SHAPED , O SIGN + General: Alert, cooperative, MILD distress, appears s tated age. Head: Normocephalic, without obvious abnormality, atraumatic. Eyes: Conjunctivae/corneas clear. PERRL, EOMs intact. No se: Nares normal. No drainage or sinus tenderness Throat: Lips, mucos a, and tongue normal Neck: Supple, symmetrical, trachea midline, no adenopathy,thyroid: no enlargement/tenderness/nodules, no carot id bruit and no JVD. Lungs: A- P INCREASED , WHEEZING + 1 , RALES + R L L > L L Lto auscultation bilaterally. Chest Wall: No tenderness or deformity . Heart: Regular rate and rhythm, S1, S2 normal, no murmur, click,rub or g allop. Abdomen: Soft, non-tender. Bowel sounds normal. No masses, No organomeg edison. Extremities: Extremities normal, atraumatic, no cyanosis or edema. Pulses: 4+ bilaterally. Skin: Skin color, texture, turgor normal. No rashes or lesions. Neurologic: CNII-XII intact. No focal motor or sensory defici t.Intake and Output:Last three shifts: 11/09 07 - 11/10 1900In: 400 [I.V.:400]Out: 850 [Urine:850]Lab Results:Recent Results (from the past 24 hour(s))CBC WITH AUTOM ATED DIFF Collection Time: 11/10/18 5:28 AMResult Value Ref Range WBC 14.4 (H) 4. 8 - 10.6 K/uL RBC 4.19 (L) 4.70 - 6.00 M/uL HGB 13.5 (L) 14.0 - 18.0 g/dL HCT 40.1 ( L) 42.0 - 52.0 % MCV 95.7 (H) 81.0 - 94.0 FL MCH 32.2 27.0 - 35.0 PG MCHC 33.7 30.7 - 37.3 g/dL RDW 13.9 11.5 - 14.0 % PLATELET 227 130 - 400 K/uL MPV 9.8 9.2 - 11.8 FL NEUTROPHILS 89 (H) 48.0 - 72.0 % LYMPHOCYTES 8 (L) 18.0 - 40.0 % MONOCYTES 3 2.0 - 12 .0 % EOSINOPHILS 0 0.0 - 7.0 % BASOPHILS 0 0.0 - 3.0 % ABS. NEUTROPHILS 12.8 (H) 1. 5 - 6.6 K/UL ABS. LYMPHOCYTES 1.2 (L) 1.5 - 3.5 K/UL ABS. MONOCYTES 0.4 0.0 - 1.0 K/ UL ABS. EOSINOPHILS 0.0 0.0 - 0.7 K/UL ABS. BASOPHILS 0.0 0.0 - 0.1 K/UL DF AUTOMATE D IMMATURE GRANULOCYTES 0 0.0 - 2.0 %METABOLIC PANEL, COMPREHENSIVE Collecti on Time: 11/10/18 5:28 AMResult Value Ref Range Sodium 141 136 - 145 mmol/L Potass ium 4.0 3.5 - 5.1 mmol/L Chloride 103 98 - 107 mmol/L CO2 32 21 - 32 mmol/L Anion g ap 9 (L) 10 - 20 mmol/L Glucose 102 74 - 106 mg/dL BUN 17 7 - 18 mg/dL Creatinine 0.5 5 (L) 0.70 - 1.30 mg/dL GFR est AA >60 >60 ml/min/1.73m2 GFR est non-AA >60 >60 ml/ min/1.73m2 Calcium 9.3 8.5 - 10.1 mg/dL Bilirubin, total 0.3 0.2 - 1.0 mg/dL ALT (SGPT) 17 13 - 61 U/L AST (SGOT) 25 15 - 37 U/L Alk. phosphatase 46 45 - 117 U/L Pro tein, total 6.3 (L) 6.4 - 8.2 g/dL Albumin 2.9 (L) 3.5 - 4.7 g/dL Globulin 3.4 1.7 - 4.7 g/dL A-G Ratio 0.9 0.7 - 2.8ABG:No results for input(s): PH, PCO2, PO2, HCO 3, FIO2 in the last 72 hours.Recent Glucose Results:Lab ResultsComponent Value Date/ Time GLU 102 11/10/2018 05:28 AM@LABAPCYTOINTERPRETATION@CULTURESAll M icro Results Procedure Component Value Units Date/Time CULTURE, BLOOD [[id number]] Col lected: 11/07/182009 Order Status: Completed Specimen: Blood Updated: 621 Special Requests: NO SPECIAL REQUESTS Culture result: NO GROWTH 3 DA YS CULTURE, BLOOD [[id number]] Collected: 11/07/181999 Order Status: Completed S pecimen: Blood Updated: 11/10/18621 Special Requests: NO SPECIAL REQUESTS C ulture result: NO GROWTH 3 DAYS STREP PNEUMO AG, URINE [[id number]] Collected: 0700 Order Status: Completed Specimen: Other from Urine, random Updated: 11/09 Strep pneumo Ag, urine NEGATIVE Comment:Presumptive negative suggests no current or recent pneumococcal infection.Infection due to S.pneumonia c annot beruled out since the antigen presentin the sample may be below the detectionlim it of the test. This test is notintended as a substitute for gram stainand bacterial c ulture Method IMMUNOCHROMATOGRAPHIC MEMBRANE ASSAY LEGIONELLA PNEUMOPHILA AG , URINE [[id number]] Collected: 11/08/18 1145 Order Status: Completed Specimen: Urin e Updated: 11/09/18 1048 Legionella Ag, urine NEGATIVE Comment:PRESUMPTIVE NEGA TIVE forL.pneumophila Serogroup 1Antigen in urine,suggestingno recent or current inf ection.Infection due to Legionellacannot be ruled out since otherserogroups and spec ies may causedisease,antigen may not bepresent in urine in earlyinfection, an d the level ofantigen present in the urinemay be below the detectionlimit of the test. Method IMMUNOCHROMATOGRAPHIC MEMBRANE ASSAY CULTURE, URINE [[id number]] Order S tatus: Sent Specimen: Urine from Clean catchImages:@IMAGESENCORD@Cta Chest W Or W Wo ContResult Date: 11/08/2018Examination: CTA Chest ? PE angiography History: Hypo magdy; rule out pneumoniaversus pulmonary embolism Priors: None Technique: Low-d ose, multiplanar,helical CTA chest was performed with bolus IV injection from lung apices tobases. 3D-reformatted images were obtained and reviewed on a dedicate d viewingworkstation and directly supervised. Contrast: A total of 71 mL of Isovue-370 was administered intravenously for this procedure. Findings: No evidence ofpulmo nary embolism is seen. There is decreased size of the right hemithorax fromchronic scarring and retraction with mediastinal shift left to right.Additional area of c onsolidation is seen in the right lower lobe and suggestssuperimposed pneumonia with subsegmental atelectasis. Subsegmental atelectasisis also noted in the left jorge g base, with pleural parenchymal scarring. Lowlung volumes are seen. No pneumothora x seen. Aorta normal in caliber withoutaneurysm or dissection. Mediastin um no adenopathy. Mediastinal shift is seen inthe left and right as a result of chr onic changes in the right hemithorax.Heart shows no chamber enlargement or pericard ial effusion. No acute fracturesseen in the bony thorax, sternum, manubrium and rib cage. Multiple compressiondeformities are seen in the mid and lower thoracic spine , with superimposedspondyloarthropathy. Cannot exclude acute fracture.Impression : No evidence of pulmonary embolism Right lower lobe pneumoniasuggested. Incidenta l scarring and retraction in the right hemithorax fromremote/chronic inflammato ry disease and/or trauma. Bibasilar subsegmentalatelectasis. Report Electron ically Signed By: Pawel Zafar M.D. -11/08/2018 12:40 AMXr Chest PortResult D ate: 11/07/2018XR CHEST PORT CLINICAL INDICATION PROVIDED:. "sob." COMPARISON: . 09/26/2015.FINDINGS:. The pericardial/cardiac silhouette is enlarg ed in the transversedimension. There is no pulmonary vascular congestion or interst itial edema.Linear density in the left lung base and faint densities in the right mi d tolower lung likely represent atelectasis. There is no lobar consolidation oreffusi on. There is no pneumothorax.IMPRESSION:. Bilateral lower lung atelectasis. No donna dence of consolidation oreffusion.Medications:Current Facility- Administered MedicationsMedication Dose Route Frequency 0.9% sodium chloride 1,000 mL with mvi, adult no.4 with vit K 10 mL, [id number] mg, folic acid 1 mg infusion IntraVENous Q24H dextrose 5 % - 0.45% NaCl infusion 50 mL/hr IntraVENous CONT INUOUS heparin (porcine) injection 5,000 Units 5,000 Units SubCUTAneous Q12H al buterol-ipratropium (DUO-NEB) 2.5 MG-0.5 MG/3 ML 3 mL Nebulization Q4H PRN methylPRE DNISolone (PF) (SOLU-MEDROL) injection 40 mg 40 mg IntraVENous Q6H cinacalcet (SENSI PAR) tablet 60 mg 60 mg Oral DAILY lamoTRIgine (LaMICtal) tablet 50 mg 50 mg Oral BID ALPRAZolam (XANAX) tablet 0.25 mg 0.25 mg Oral DAILY cefTRIAXone (FEDE EPHIN) 1 g in 0.9% sodium chloride (MBP/ADV) 50 mL MBP 1 gIntraVENous Q24H azithrom ycin (ZITHROMAX) 500 mg in 0.9% sodium chloride 250 mL IVPB 500 mgIntraVENous Q24H budesonide (PULMICORT) 500 mcg/2 ml nebulizer suspension 500 mcg Nebulizati onBID RT albuterol-ipratropium (DUO- NEB) 2.5 MG-0.5 MG/3 ML 3 mL Nebulization Q4HWA RTActive Problems: COPD (chronic obstructive pulmonary disease) ([facility]) (11/08/2018) Ac manzanita respiratory distress (11/08/2018) Pneumonia (11/08/2018) COPD exacerbation ([facility]) (11/08/2018)Assessment:Problems: COPD (chronic obstructive pulmonary disease) ([facility]) (11/08/2018) Acute respiratory distress (11/08/2018) Pneumonia ( 019) COPD exacerbation ([facility]) (11/08/2018) Acute resp failure combined, pneumonia R LL acute copd exacerbation pe ruled out. BILATERAL BASAL ATELECTASESPLAN,Monito ring,Iv CEFTRIAXONE AND AZITHROMYCINIv steroidsbipap prn and at night.NebD/w dayanara tong and nursing staff.Krystian Monae MD F.C.C.P.November 10, 20189:51 PM Name Value Range Interpretation Code Description Data Harriett rce(s) Supporting Document(s ) ID Date Data Source [id number] 11/10/2018 07:27:55 PM EDT [facility] Bedside and Verbal shift change report g ankit De Guzman RN (oncoming nurse) byAde Salazar RN (offgoing nurse). Report includ ed the following information SBAR,Kardex, MAR, and Recent Results. Name Value Range Interpretation Code Description Data [facility] rce(s) Supporting Document(s ) ID Date Data Source [id number] 11/10/2018 06:52:12 PM EDT [facility] Problem: Pressure Injury - Risk ofGoal: *Prevention of pressure injuryDescriptionDocument Butch Scale a nd appropriate interventions in the flowsheet.Outcome: Progressing Towards G oalNote:Pressure Injury Interventions:Sensory Interventions: Assess changes in LOCMois ture Interventions: Internal/External urinary devicesActivity Interventions: Pressure redistribution bed/mattress(bed type)Mobility Interventions: Pressure redistribution b ed/mattress (bed type)Nutrition Interventions: Discuss nutritional consu lt with providerFriction and Shear Interventions: Apply protective barrier, creams andemollientsProblem: Falls - Risk ofGoal: *Absence of FallsDescriptionDocu ment Samra Fall Risk and appropriate interventions in the flowsheet.Outcome: Progressing Towards GoalNote:Fall Risk Interventions:Mobility Interventions: Be d/chair exit alarmMentation Interventions: Adequate sleep, hydration, pain controlM edication Interventions: Bed/chair exit alarmElimination Interventions: Bed/eris r exit alarm, Toileting schedule/hourlyroundsProblem: Gas Exchan ge - ImpairedGoal: *Absence of hypoxiaOutcome: Progressing Towards Goal Problem: Dysphagia (Adult)Goal: *Speech Goal: (INSERT TEXT)Outcome: Progressing Toward s GoalProblem: Non-Violent RestraintsGoal: *Removal from restraints as soon as asse ssed to be safeOutcome: Progressing Towards GoalGoal: *No harm/injury to patient whi le restraints in useOutcome: Progressing Towards GoalGoal: *Patient's dignity feliberto l be maintainedOutcome: Progressing Towards GoalGoal: Non-violent Restaints:Standard InterventionsOutcome: Progressing Towards GoalProblem: Nutrition DeficitGoal: *Opt imize nutritional statusDescriptionConsumption of >50% me als/snacks/supplements daily within 3-7 daysOutcome: Progressing Towards Goal Name Value Range Interpretation Code Description Data Harriett rce(s) Supporting Document(s ) ID Date Data Source [id number] 11/10/2018 06:00:35 PM EDT [facility] Problem: Dysphagia (Adult)Goal: *Speech Goal: (INSERT TEXT)Note:SPEECH LANGUAGE PATHOLOGY BEDSIDE SWALLOW EVALUATIONPati ent: Evelio Carlin (68 y.o. male)Date: 11/10/2018Primary Diagnosis: COPD (chroni c obstructive pulmonary disease) ([facility]) [J44.9]Acute respiratory distress [R06.0 3]COPD exacerbation ([facility]) [J44.1]Pneumonia [J18.9]Precautions: AspirationCurrent Di et (Recommendation): Per swallowing evaluation, recommendation isNPO. Altern ate means of nutrition and hydration are recommended at this time.ASSESSMENT :Bas ed on the objective data described below, the patient presents withDysphagia.Patient w ill benefit from skilled intervention to address the above impairments.Patient's rehabilitation potential is considered to be FairFactors which may influence rehabili tation potential include:? None noted? Mental ability/status? Medical condition? Home/family situation and support system s? Safety awareness? Pain tolerance/management? Ot her:PLAN :Recommendations and Planned Interventions:Per swallowing evaluation, recommendation is NPO. Alternate means of nutritionand hydration are recommended a t this time.Frequency/Duration: Patient will be followed by speech-language pathology 2times a week to address goals.Discharge Recommendations: To Be DeterminedSUBJECT BRITNI:Patient stated "". Patient demonstrated significant oxygen desaturation on allco nsistencies (96-86%)SP 02. 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)History reviewed. No pertinent surgical history.Diet prior to admission : UnknownPrior Level of Function/Home Situation:Home SituationHome Environment : senior living facilityOne/Two Story Residence: Other (Comment)Living Alone: NoSupport Systems: senior living facilityPatient Expects to be Discharged to:: UnknownCurrent DME Used/Available at Home: WheelchairCognitive and Communicat ion Status:Neurologic State: Alert, ConfusedOrientation Level: Unable to lani balizeCognition: Decreased attention/concentration, Impaired decisi on making, Nocommand followingPerception: Cues to attend left visual fieldPersever ation: Tactile cues provided, Verbal cues provided, Visual cues providedSafety/[place] gement: Decreased awareness of environment, Decreased awareness ofneed for assistanc e, Decreased awareness of need for safetyOral Assessment:Oral AssessmentLabial: Decrea sed rateDentition: IntactOral Hygiene: fairLingual: Decreased rateVelum: Unable to visualizeMandible: RestrictedGag Reflex: ReducedP.O. Trials:Patient Position: upr ight in bedVocal quality prior to P.O.: Other (comment)Consistency Presented: Honey th ick liquidHow Presented: SENIOR FUND ACCOUNTANT-fed/presented;SpoonHow Much: 3(spoon ful)Bolus Acceptance: No impairmentBolus Formation/Control: ImpairedType of Impai rment: Premature spillage;Lip closure(premature spillage highlysuspect ed)Propulsion: Delayed (# of seconds)Oral Residue: NoneInitiation of Swallow: Lori yed (# of seconds)Laryngeal Elevation: DecreasedAspiration Signs/Symptoms: Decr ease in O2 saturations;Other (comment)(strongcough)Pharyngeal Phase C haracteristics: Double swallow;Easily fatigued ;EffortfulswallowEffective Shakila fications: NoneCues for Modifications: ModerateOral Phase Severity: Mild-modera tePharyngeal Phase Severity : ModerateP.O. Trial 2:-P.O. Trial 3:-PO Trials 3Consis tency Presented: PureeHow Presented: SENIOR FUND ACCOUNTANT-fed/presented;SpoonHow Much: 3(spoon fuls)Bolus Acceptance: No impairmentBolus Formation/Control: ImpairedType of Impai rment: Incomplete;Premature spillage;Lip closurePropulsion: DiscoordinationOral R esidue: NoneInitiation of Swallow: DelayedAspiration Signs/Symptoms: Decrea se in O2 saturations;Infiltrate on chestxray;Other (comment)(weak throat cl ear)Effective Modifications: NoneCues for Modifications: NonePain:After treatment: ? Patient left in no apparent distress sitting up in chair? Patient left in no apparent distress in bed? Call botello left within reach? Nursing notified? Caregiver present? Bed alarm activatedCOMMUNICATION/EDUCATION:The patient's plan of care including recomme ndations, planned interventions, andrecommended diet changes were discuss ed with: Registered Nurse.? Posted safety precautions in patient's room.? Patient/family have participated as able in goal setting and planof care.? Patient/family agree to work toward stated goals and plan of care.? Patient understands intent and goals of therapy, but is neutralabout his/her par ticipation.? Patient is unable to participate in goal setting and plan of care.Thank you for this referral.Suha Long MS CFY-SLPSpeech- Language Pathol ogistTime Calculation: 25 mins Name Value Range Interpretation Code Description Data Harriett rce(s) Supporting Document(s ) ID Date Data Source [id number] 11/10/2018 03:55:31 PM EDT [facility] RN called to report Lactic Acid of 2.4, this is down from 3.8Advised that this is satisfactorySuDAYANARA Ace Name Value Range Interpretation Code Description Data [facility] rce(s) Supporting Document(s ) ID Date Data Source [id number] 11/10/2018 03:23:12 PM EDT [facility] RECOMMENDATIONS:Regular diet with consis tencies per SLPIf unable to swallow on repeat evaluation, consider ENNUTRITION ASSESSM ENT MST ScreenSubjective: Pt non-verbal, spoke to pt's family at bedside. Family reportsmodified solids with thickened liquids PRODUCTION HELPER at facility, appetite has beendecrea sed for 2 months; used to take Ensure pudding but started to refuse thatas well. 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) Pneumoni a Psychiatric disorder Pulmonary emboli (HCC) Schizophrenia (HCC)Diet Order:Act britni OrdersDiet DIET NPOAllergies: Patient has no known allergies.Labs:CMP:Lab ResultsC omponent Value Date/Time NA 141 11/10/2018 05:28 AM K 4.0 11/10/2018 05:28 AM CL 10 3 11/10/2018 05:28 AM CO2 32 11/10/2018 05:28 AM AGAP 9 (L) 11/10/2018 05:28 AM GLU 10 2 11/10/2018 05:28 AM BUN 17 11/10/2018 05:28 AM CREA 0.55 (L) 11/10/2018 05:28 AM GFR AA >60 11/10/2018 05:28 AM GFRNA >60 11/10/2018 05:28 AM CA 9.3 11/10/2018 05 :28 AM ALB 2.9 (L) 11/10/2018 05:28 AM TP 6.3 (L) 11/10/2018 05:28 AM GLOB 3.4 019 05:28 AM AGRAT 0.9 11/10/2018 05:28 AM SGOT 25 11/10/2018 05:28 AM ALT 17 11/10 05:28 AMNutritionally Significant Meds: Solu-MedrolAssessmentLast 3 Recorded Earl ghts in this Encounter 11/08/18 0557 11/09/18 0636Weight: 60.8 kg (134 lb) 59.1 kg (13 0 lb 6.4 oz)Height: 5' 2" (157.5 cm)Body mass index is 23.85 kg/m .UBW: 115-120 lb % UBW: 108-113IBW: 118 lb %IBW: 110Wt Readings from Last 3 Encounters:11/09/18 59.1 kg (130 lb 6.4 oz)09/26/15 54.9 kg (121 lb)Nutrition Focused Physical Assessment :[] AcceptableTemple Region Muscle Wasting-MildClavicle Region Muscle Wasti ng-MildOral/GI Issues:Difficulty chewingDifficulty swallowing- NPO per SL PSkin:Butch score 8Edema:Peripheral Vascular (WDL): Within Defined LimitsAppetite: n/ a% Meal Intake: NPONo data found.Fluid Intake:Intake/Output Summary (Last 24 ho urs) at 11/10/2018 1029Last data filed at 11/10/2018 0649Gross per 24 hourIntake 40 0 mlOutput -Net 400 mlNutrition Rx: 1770-2065kcal; 73-89g protein (1.25-1.5g /kg); 1770-2065ml fluid(1ml/kcal)[based on: 30-35 Kcal/kg]% Estimated Energy Needs M et: 0%% Estimated Protein Needs Met: 0%% Fluid Needs Met: <25%Education Needs: [x] Not indicated at this time [] Indicated at this timeNutrition Diagnosi sIncreased protein and energy needs related to high risk skin breakdown asevidenced by butch score 8Intervention:Suggest Regular diet with consistencies per SENIOR FUND ACCOUNTANT; will pr ovide Magic Cup TID (290kcal, 9 gm pro each); use reviewed with familyIf unable to swa llow on repeat evaluation, consider ENGoals:Consumption of >50% meals/snack s/supplements daily within 3-7 daysMonitoring and EvaluationSLP notes, PO intake vs EN Skin integrityDischarge Planning:Pending Clinical Course [x] No cultural, religi ous, or ethnic dietary needs identified [] Cultural, quaker and ethnic food pref erences identified and addressed [] Participated in care plan, discharge jocelyn nning/Interdisciplinary roundsAlexa R Sunny RD Name Value Range Interpretation Code Description Data Harriett rce(s) Supporting Document(s ) ID Date Data Source [id number] 11/10/2018 02:57:57 PM EDT [facility] ID Progress Note11/10/2018Subjective:Siri ent with MR,schizophrenia,non verbal.Unable to provide any history.Afebrile ,wbc cosat nding downObjective:Vitals:Patient Vitals for the past 24 hrs: BP Temp Pulse Resp SpO2 11/10/18 1100 138/75 97.8 F (36.6 C) 76 20 96 %11/10/18 0738 141/90 98.4 F (36.9 C) 85 20 90 %11/10/18 0511 125/90 97.8 F (36.6 C) 89 20 93 %11/09/18 2332 120/75 98.2 F (36.8 C) 84 20 98 %11/09/18 2327 - - - - 97 %11/09/182015 133/90 97.8 F ( 36.6 C) (!) 101 20 92 %11/09/18 1548 126/73 97.6 F (36.4 C) 87 20 93 %Tmax: Temp (24hrs), Av.9 F (36.6 C), Min:97.6 F (36.4 C), Max:98.4 F(36.9 C)Physical Exam:General: Awake non verbal, cooperative, no distressEyes: Conjunctivae/corneas c lear. PERRLNeck: Supple, symmetrical, trachea midline, no adenopathyLungs: Bilateral breath sounds with basal crackles..Heart: Regular rate and rhythm, S1, S2 normalAb domen: Soft, non-tender. Bowel sounds normal.Back: No CVA tenderness.Extremi ties: No cyanosis or edema.Pulses: 2+ and symmetric all extremities.Skin: Skin col or, texture, turgor normal. No rashes or lesionsLymph nodes: Cervical, supraclavi cular, and axillary nodes normal.Current Facility-Administered MedicationsMedicat ion Dose Route Frequency dextrose 5 % - 0.45% NaCl infusion 50 mL/hr IntraVENou s CONTINUOUS heparin (porcine) injection 5,000 Units 5,000 Units SubCUTAneous Q1 2H albuterol-ipratropium (DUO-NEB) 2.5 MG-0.5 MG/3 ML 3 mL Nebulization Q4H TN N methylPREDNISolone (PF) (SOLU-MEDROL) injection 40 mg 40 mg IntraVENous Q6H cinacalcet (SENSIPAR) tablet 60 mg 60 mg Oral DAILY lamoTRIgine (LaMICtal) table t 50 mg 50 mg Oral BID ALPRAZolam (XANAX) tablet 0.25 mg 0.25 mg Oral DAILY cefT RIAXone (ROCEPHIN) 1 g in 0.9% sodium chloride (MBP/ADV) 50 mL MBP 1 gIntraVE Nous Q24H azithromycin (ZITHROMAX) 500 mg in 0.9% sodium chloride 250 mL IVPB 500 mg IntraVENous Q24H budesonide (PULMICORT) 500 mcg/2 ml nebulizer suspension 500 mcg N ebulizationBID RT albuterol-ipratropium (DUO-NEB) 2.5 MG-0.5 MG/3 ML 3 mL Nebul ization Q4HWA RTLabs:Recent Labs 11/09/1905 0 WBC 14.4* 17.0* 10.3 6.6HGB 13.5* 14.0 13.9* 15.5PLT 227 204 195 193BUN 17 15 -- 15CREA 0.55* 0.50* -- 0.71SGOT 25 17 -- 15AP 46 46 -- 72TBILI 0.3 0.4 -- 0.1*Cultures:Lab ResultsComponent Value Date/Time Culture result: NO GROWTH 3 DA YS 11/07/2018 08:10 PM Culture result: NO GROWTH 3 DAYS 11/07/2018 08:00 PMRadiolo gy:No results found.Assessment: R/o sepspis Nosocomial PNA COPD Plan:1. Continue Iv azithromycin and rocephin.2. Follow cultures.Laurel Beauchamp 20182:5 0 PM Name Value Range Interpretation Code Description Data Harriett e(s) Supporting Document(s ) ID Date Data Source [id number] 11/10/2018 12:49:56 PM EDT [facility] Clinical IndicatorsA/W Pneumonia with do cumented history of intellectual disability , dysphagia ,residing in [place] unabl e to provide any history or verbal communication,requiring restraints as ne eded, assistance with ambulation/ADL care , bedalarm, and bedside swallow evaluation Please clarify type of intellectual disability: Moderate Severe Profound Clinically unable to determine Unknown Name Value Range Interpretation Code Description Data [facility](s) Supporting Document(s ) ID Date Data Source [id number] 11/10/2018 07:27:29 AM EDT [facility] Bedside and Verbal shift change report carol GROSS RN (oncoming nurse) bySincy Chad, RN(offgoing nurse). Report given with SBAR, Kardex, Intake/Output, MAR and RecentResults. Name Value Range Interpretation Code Description Data Harriett rce(s) Supporting Document(s ) ID Date Data Source [id number] 11/10/2018 06:43:00 AM EDT [facility] Name Value Range Interpretation Description Data Sup porting Code Source(s) Document(s ) Leukocytes 14.4 4.8-10.6 Above high normal [facility] - [#/volume] in K/uL [facility] Automated count Erythrocytes 4.19 4.70-6.0 Below low normal [facility] - [#/volume] in M/uL 0 [facility] Blood by Hospital Automated count Hemoglobin 13.5 14.0-18. Below low normal [facility] - [Mass/volume] in g/dL 0 [facility] Blood Hospital Hematocrit 40.1 % 42.0-52. Below low normal [facility] - [Volume 0 Community Fraction] of Hospital Blood by Automated count Erythrocyte mean 95.7 FL 81.0-94. Above high normal [facility] - corpuscular 0 Community volume [Entitic Hospital volume] by Automated count Erythrocyte mean 32.2 PG 27.0-35. [facility] - corpuscular 0 [facility] hemoglobin Hospital [Entitic mass] by Automated count Erythrocyte mean 33.7 30.7-37. [facility] - corpuscular g/dL 3 [facility] hemoglobin Hospital concentration [Mass/volume] by Automated count Erythrocyte 13.9 % 11.5-14. [facility] - distribution 0 Community width [Ratio] by Hospital Automated count Platelets 227 K/uL 130-400 [facility] - [#/volume] in [facility] Blood by Hospital Automated count Platelet mean 9.8 FL 9.2-11.8 [facility] - volume [Entitic Community volume] in Blood Hospital by Automated count Segmented 89 % 48.0-72. Above high normal [facility] - neutrophils/100 0 Community leukocytes in Hospital Blood Lymphocytes/100 8 % 18.0-40. Below low normal [facility] - leukocytes in 0 [facility] Blood Hospital Monocytes/100 3 % 2.0-12.0 [facility] - leukocytes in [facility] Blood Hospital Eosinophils/100 0 % 0.0-7.0 [facility] - leukocytes in [facility] Blood Hospital Basophils/100 0 % 0.0-3.0 [facility] - leukocytes in [facility] Blood Hospital Segmented 12.8 1.5-6.6 Above high normal [facility] - neutrophils K/UL Community [#/volume] in Hospital Blood Lymphocytes 1.2 K/UL 1.5-3.5 Below low normal [facility] - [#/volume] in [facility] Blood Hospital Monocytes 0.4 K/UL 0.0-1.0 [facility] - [#/volume] in [facility] Blood Hospital Eosinophils 0.0 K/UL 0.0-0.7 [facility] - [#/volume] in [facility] Blood Hospital Basophils 0.0 K/UL 0.0-0.1 [facility] - [#/volume] in [facility] Hospital Differential [facility] - cell count [facility] Immature 0 % 0.0-2.0 [facility] - granulocytes/100 Community leukocytes in Hospital Blood by Automated count ID Date Data Source [id number] 11/10/2018 06:33:30 AM EDT [facility] - [facility] Name Value Range Interpretation Description Data Sup porting Code Source(s) Document(s ) Sodium 141 136-145 [facility] - [Moles/volume] in mmol/L [facility] Serum or Plasma Hospital Potassium 4.0 3.5-5.1 [facility] - [Moles/volume] in mmol/L [facility] Serum or Plasma Hospital Chloride 103 98-107 [facility] - [Moles/volume] in mmol/L [facility] Serum or Plasma Hospital Carbon dioxide, 32 21-32 [facility] - total mmol/L [facility] [Moles/volume] in Hospital Serum or Plasma Anion gap in Serum 9 10-20 Below low normal [facility] - or Plasma mmol/L [facility] Glucose 102 74-106 [facility] - [Mass/volume] in mg/dL [facility] Serum or Plasma Hospital Urea nitrogen 17 7-18 [facility] - [Mass/volume] in mg/dL [facility] Serum or Plasma Hospital Creatinine 0.55 0.70-1. Below low normal [facility] - [Mass/volume] in mg/dL 30 [facility] Serum or Plasma Hospital Glomerular >60 [facility] - filtration Community rate/1.73 sq M Hospital predicted among blacks [Volume Rate/Area] in Serum or Plasma by Creatinine-based formula (MDRD) Glomerular >60 [facility] - filtration Community rate/1.73 sq M Hospital predicted among non-blacks [Volume Rate/Area] in Serum or Plasma by Creatinine-based formula (MDRD) Calcium 9.3 8.5-10. [facility] - [Mass/volume] in mg/dL 1 [facility] Serum or Plasma Hospital Bilirubin.total 0.3 0.2-1.0 [facility] - [Mass/volume] in mg/dL [facility] Serum or Plasma Hospital Alanine 17 U/L 13-61 [facility] - aminotransferase Community [Enzymatic Hospital activity/volume] in Serum or Plasma Aspartate 25 U/L 15-37 [facility] - aminotransferase Community [Enzymatic Hospital activity/volume] in Serum or Plasma by With P-5'-P Alkaline 46 U/L 45-117 [facility] - phosphatase Community [Enzymatic Hospital activity/volume] in Serum or Plasma Protein 6.3 6.4-8.2 Below low normal [facility] - [Mass/volume] in g/dL [facility] Serum or Plasma [facility] Albumin 2.9 3.5-4.7 Below low normal [facility] - [Mass/volume] in g/dL [facility] Serum or Plasma by Hospital Bromocresol purple (BCP) dye binding method Globulin 3.4 1.7-4.7 [facility] - [Mass/volume] in g/dL [facility] Serum by [facility] calculation Albumin/Globulin 0.9 0.7-2.8 [facility] - [Mass Ratio] in [facility] Serum or Plasma Hospital ID Date Data Source [id number] 11/10/2018 06:43:00 AM EDT [facility] - [facility] Name Value Range Interpretation Description Data Sup porting Code Source(s) Document(s ) Leukocytes 14.4 4.8-10.6 Above high normal [facility] - [#/volume] in K/uL [facility] Blood by Taoist Automated count [facility] Erythrocytes 4.19 4.70-6.0 Below low normal [facility] - [#/volume] in M/uL 0 [facility] Blood by Taoist Automated count [facility] Hemoglobin 13.5 14.0-18. Below low normal [facility] - [Mass/volume] in g/dL 0 Good Blood [facility] Hematocrit 40.1 % 42.0-52. Below low normal [facility] - [Volume 0 Good Fraction] of Taoist Blood by [facility] Automated count Erythrocyte mean 95.7 FL 81.0-94. Above high normal [facility] - corpuscular 0 Good volume [Entitic Taoist volume] by Hospital Automated count Erythrocyte mean 32.2 PG 27.0-35. [facility] - corpuscular 0 [facility] hemoglobin Taoist [Entitic mass] Hospital by Automated count Erythrocyte mean 33.7 30.7-37. [facility] - corpuscular g/dL 3 [facility] hemoglobin Taoist concentration Hospital [Mass/volume] by Automated count Erythrocyte 13.9 % 11.5-14. [facility] - distribution 0 Good width [Ratio] by Taoist Automated count Hospital Platelets 227 K/uL 130-400 [facility] - [#/volume] in [facility] Blood by Taoist Automated count Hospital Platelet mean 9.8 FL 9.2-11.8 [facility] - volume [Entitic Good volume] in [facility] by Automated Hospital count Segmented 89 % 48.0-72. Above high normal [facility] - neutrophils/100 0 [facility] leukocytes in [facility] Lymphocytes/100 8 % 18.0-40. Below low normal [facility] - leukocytes in 0 [facility] Monocytes/100 3 % 2.0-12.0 [facility] - leukocytes in [facility] Eosinophils/100 0 % 0.0-7.0 [facility] - leukocytes in [facility] Basophils/100 0 % 0.0-3.0 [facility] - leukocytes in [facility] Segmented 12.8 1.5-6.6 Above high normal [facility] - neutrophils K/UL Good [#/volume] in [facility] Lymphocytes 1.2 K/UL 1.5-3.5 Below low normal [facility] - [#/volume] in [facility] Monocytes 0.4 K/UL 0.0-1.0 [facility] - [#/volume] in [facility] Eosinophils 0.0 K/UL 0.0-0.7 [facility] - [#/volume] in [facility] Basophils 0.0 K/UL 0.0-0.1 [facility] - [#/volume] in [facility] Differential [facility] - cell count [facility] method [facility] Immature 0 % 0.0-2.0 [facility] - granulocytes/100 Good leukocytes in Taoist Blood by Hospital Automated count ID Date Data Source [id number] 11/10/2018 06:33:30 AM EDT [facility] - [facility] Name Value Range Interpretation Description Data Sup porting Code Source(s) Document(s ) Sodium 141 136-145 [facility] - [Moles/volume] in mmol/L [facility] Serum or Plasma [facility] Potassium 4.0 3.5-5.1 [facility] - [Moles/volume] in mmol/L [facility] Serum or Plasma [facility] Chloride 103 98-107 [facility] - [Moles/volume] in mmol/L [facility] Serum or [facility] Carbon dioxide, 32 21-32 [facility] - total mmol/L Good [Moles/volume] in Taoist Serum or Plasma Hospital Anion gap in Serum 9 10-20 Below low normal [facility] - or Plasma mmol/L [facility] Glucose 102 74-106 [facility] - [Mass/volume] in mg/dL [facility] Serum or [facility] Urea nitrogen 17 7-18 [facility] - [Mass/volume] in mg/dL [facility] Serum or [facility] Creatinine 0.55 0.70-1. Below low normal [facility] - [Mass/volume] in mg/dL 30 [facility] Serum or [facility] Glomerular >60 [facility] - filtration Good rate/1.73 sq M Taoist predicted among Hospital blacks [Volume Rate/Area] in Serum or Plasma by Creatinine-based formula (MDRD) Glomerular >60 [facility] - filtration Good rate/1.73 sq M Taoist predicted among Hospital non-blacks [Volume Rate/Area] in Serum or Plasma by Creatinine-based formula (MDRD) Calcium 9.3 8.5-10. [facility] - [Mass/volume] in mg/dL 1 [facility] Serum or [facility] Bilirubin.total 0.3 0.2-1.0 [facility] - [Mass/volume] in mg/dL [facility] Serum or [facility] Alanine 17 U/L 13-61 [facility] - aminotransferase Good [Enzymatic Taoist activity/volume] in Hospital Serum or Plasma Aspartate 25 U/L 15-37 [facility] - aminotransferase Good [Enzymatic Taoist activity/volume] in Hospital Serum or Plasma by With P-5'-P Alkaline 46 U/L 45-117 [facility] - phosphatase Good [Enzymatic Taoist activity/volume] in Hospital Serum or Plasma Protein 6.3 6.4-8.2 Below low normal [facility] - [Mass/volume] in g/dL Good Serum or Plasma [facility] Albumin 2.9 3.5-4.7 Below low normal [facility] - [Mass/volume] in g/dL Good Serum or Plasma by Taoist Bromocresol [facility] (BCP) dye binding method Globulin 3.4 1.7-4.7 [facility] - [Mass/volume] in g/dL Good Serum by [facility] Albumin/Globulin 0.9 0.7-2.8 [facility] - [Mass Ratio] in Good Serum or Plasma [facility] ID Date Data Source [id number] 11/10/2018 02:11:58 AM EDT [facility] - [facility] Problem: Pressure Injury - Risk ofGoal: *Prevention of pressure injuryDescriptionDocument Butch Scale a nd appropriate interventions in the flowsheet.Outcome: Progressing Towards G oalNote:Pressure Injury Interventions:Sensory Interventions: Assess changes in LOCMois ture Interventions: Absorbent underpadsActivity Interventions: Pressur e redistribution bed/mattress(bed type)Mobility Interventions: Pressure re distribution bed/mattress (bed type)Nutrition Interventions: Document food/fluid/suppl ement intakeFriction and Shear Interventions: Apply protective barrier, creams andemol lientsProblem: Patient Education: Go to Patient Education ActivityGoal: Patient/ Family EducationOutcome: Progressing Towards GoalProblem: Falls - Risk ofGoal: *Absen ce of FallsDescriptionDocument Samra Fall Risk and appropriate interventions in e flowsheet.Outcome: Progressing Towards GoalNote:Fall Risk Interventions:Mobilit y Interventions: Bed/chair exit alarmMentation Interventions: Adequate s leep, hydration, pain controlMedication Interventions: Bed/chair exit alarmElimi nation Interventions: Bed/chair exit alarmProblem: Patient Education: Go to P atient Education ActivityGoal: Patient/Family EducationOutcome: Progressing Towards Go alProblem: Gas Exchange - ImpairedGoal: *Absence of hypoxiaOutcome: Progressing Towards GoalProblem: Patient Education: Go to Patient Education ActivityGoal: Patient/ Family EducationOutcome: Progressing Towards GoalProblem: Pneumonia: Day 1Goal: Consu lts, if orderedOutcome: Progressing Towards GoalGoal: Diagnostic Test/ProceduresOutc ome: Progressing Towards GoalProblem: Non-Violent RestraintsGoal: *No harm/inj ury to patient while restraints in useOutcome: Progressing Towards GoalGoal : *Patient's dignity will be maintainedOutcome: Progressing Towards G oalGoal: Non-violent Restaints:Standard InterventionsOutcome: Progressing Toward s GoalGoal: Non-violent Restraints:Patient InterventionsOutcome: Progressing Toward s Goal Name Value Range Interpretation Code Description Data Harriett rce(s) Supporting Document(s ) ID Date Data Source [id number] 11/10/2018 01:55:16 AM EDT [facility] Problem: Pressure Injury - Risk ofGoal: *Prevention of pressure injuryDescriptionDocument Butch Scale a nd appropriate interventions in the flowsheet.Outcome: Progressing Towards G oalNote:Pressure Injury Interventions:Sensory Interventions: Assess changes in LOCMois ture Interventions: Absorbent underpadsActivity Interventions: Pressur e redistribution bed/mattress(bed type)Mobility Interventions: Pressure re distribution bed/mattress (bed type)Nutrition Interventions: Document food/fluid/suppl ement intakeFriction and Shear Interventions: Apply protective barrier, creams andemol lientsProblem: Patient Education: Go to Patient Education ActivityGoal: Patient/ Family EducationOutcome: Progressing Towards GoalProblem: Falls - Risk ofGoal: *Absen ce of FallsDescriptionDocument Samra Fall Risk and appropriate interventions in th e flowsheet.Outcome: Progressing Towards GoalNote:Fall Risk Interventions:Mobilit y Interventions: Bed/chair exit alarmMentation Interventions: Adequate s leep, hydration, pain controlMedication Interventions: Bed/chair exit alarmElimi nation Interventions: Bed/chair exit alarmProblem: Patient Education: Go to P atient Education ActivityGoal: Patient/Family EducationOutcome: Progressing Towards Go alProblem: Gas Exchange - ImpairedGoal: *Absence of hypoxiaOutcome: Progressing Towards GoalProblem: Patient Education: Go to Patient Education ActivityGoal: Patient/ Family EducationOutcome: Progressing Towards GoalProblem: Pneumonia: Day 1Goal: Consu lts, if orderedOutcome: Progressing Towards GoalGoal: Diagnostic Test/ProceduresOutc ome: Progressing Towards Goal Name Value Range Interpretation Code Description Data [facility] rce(s) Supporting Document(s ) ID Date Data Source [id number] 11/09/2018 09:47:48 PM EDT [facility] notified of the NPO status and lamictal po med.as per pharmacy noalternative route for lamictal.so MD uribe ecommended to give med with small amountof apple sauce and to monitor. Name Value Range Interpretation Code Description Data [facility] Supporting Document(s ) ID Date Data Source [id number] 11/09/2018 08:03:32 PM EDT [facility] Bedside and Verbal shift change report carol pritchett rn (oncoming nurse) byAditi Arriaga RN (offgoing nurse). Report inclu ded the following informationSBAR, Kardex, ED Summary, Intake/Output and MAR. Name Value Range Interpretation Code Description Data [facility] Supporting Document(s ) ID Date Data Source [id number] 11/09/2018 03:09:00 PM EDT [facility] ID Progress Note11/09/2018Subjective:Pt s eems somewhat confusedAfebrileWBC up to 17K (pt on IV steroid)Blood cx remain negati veObjective:Review of SystemsGen: No fever, chills, malaise.Heent: No headache, rhin orrhea, sinus pain, neck pain/stiffness, sore throat.Heart: No cp, palps, pnd, or orth opnea.Resp: No cough and shortness of breath.GI: No n/v/d/c. No melena or henry tochezia.: No dysuria or hematuria.Derm: No rash, skin lesion or pruritis.Musc/skele krystian: no bone or joint complains.Vasc: No edema, cyanosis or claudication.Endo: No heat/cold intolerance, no polyuria,polydipsia or polyphagia.Neuro: No weakness or paresthesias.Heme: No epistaxis, hematemesis, melena, hematoch eziaVitals:Patient Vitals for the past 24 hrs: BP Temp Pulse Resp SpO2 [id number] 0850 110/63 97.2 F (36.2 C) 62 16 94 % -11/09/18 0636 - - - - - 59.1 kg (130 lb 6.4 oz)11/09/18 0433 116/80 97.6 F (36.4 C) 64 16 99 % -11/08/18 2305 129/77 97 F (36.1 C) 66 16 98 % -11/08/18 2051 - - - - 98 % -11/08/182000 122/72 98 F (36.7 C) 82 18 96 % -11/08/18 1546 145/77 98.4 F (36.9 C) 90 18 91 % -11/08/18 1300 - - - - 92 % -11/08/18 1149 121/74 98.3 F (36.8 C) 96 18 96 % -Tmax: Temp (24hrs), Av.8 F (36.6 C), Min:97 F (36.1 C), Max:98.4 F(36.9 C)Physical Exam:Genera l: Alert, lying in bed, NADNeck: Supple, no adenopathy,Lungs: Ronchi BL, no rales. Heart: Regular rate and rhythm, S1, S2 normal, no murmur, click, rub or gallop. Abdomen: Soft, non-tender. Bowel sounds normal. No masses, No organomegaly.Back : Symmetric, no curvature. ROM normal. No CVA tenderness.Extremities: Extremities normal, atraumatic, contracted, no cyanosis or edema.Healed surgical scar left later al thighPulses: 2+ and symmetric all extremities.Skin: Skin color, texture, t urgor normal. No rashes or lesionsLymph nodes: Cervical, supraclavicular, and ax illary nodes normal.Neurologic: Moves all extremitesCurrent Facility-Administered MedicationsMedication Dose Route Frequency heparin (porcine) injection 5,000 Units 5,000 Units SubCUTAneous Q12H albuterol-ipratropium (DUO-NEB) 2.5 MG-0 .5 MG/3 ML 3 mL Nebulization Q4H PRN methylPREDNISolone (PF) (SOLU-MEDROL) in jection 40 mg 40 mg IntraVENous Q6H cinacalcet (SENSIPAR) tablet 60 mg 60 m g Oral DAILY lamoTRIgine (LaMICtal) tablet 50 mg 50 mg Oral BID ALPRAZolam (XANAX ) tablet 0.25 mg 0.25 mg Oral DAILY cefTRIAXone (ROCEPHIN) 1 g in 0.9% sodiu m chloride (MBP/ADV) 50 mL MBP 1 gIntraVENous Q24H azithromycin (ZITHROM AX) 500 mg in 0.9% sodium chloride 250 mL IVPB 500 mgIntraVENous Q24H 0.45% sodi um chloride infusion 75 mL/hr IntraVENous CONTINUOUS budesonide (PULMICORT) 500 m cg/2 ml nebulizer suspension 500 mcg NebulizationBID RT albuterol-ipratropiu m (DUO-NEB) 2.5 MG-0.5 MG/3 ML 3 mL Nebulization Q4HWA RTLabs:Recent Labs 0 11/08/1906WBC 17.0* 10.3 6.6HGB 14.0 13.9* 15.5PLT 204 195 193BUN 15 -- 15CREA 0.50* -- 0.71SGOT 17 -- 15AP 46 -- 72TBILI 0. 4 -- 0.1*Cultures:No results found for: SDESLab ResultsComponent Value Date/Time Culture result: NO GROWTH 2 DAYS 11/07/2018 08:10 PM Culture result: NO GROWTH 2 DAY S 11/07/2018 08:00 PMRadiology:No results found.Assessment: R/o sepspis Nosocomi al PNA COPDPlan: continue IV ceftriaxone Continue Azithromycin F/u strep pneumo AG and urine legionalla ag Follow up BCx Laurel Gonzalez 20189:29 AM Name Value Range Interpretation Code Description Data Harriett rce(s) Supporting Document(s ) ID Date Data Source [id number] 11/09/2018 01:54:56 PM EDT [facility] - [facility] PULMONARY/ CCM- Consult NotePatient: Ivelisse nuel Fischbein Sex: male DOA: 11/07/2018Date of : 1 Age: 68 y.o. LOS: LOS: 1 dayHPI:step downEvelio Carlin is a 6 8 y.o. male who has been seen for resp failure.7:31 PM: Evelio Carlin is a 68 y.o. male with h/o COPD, GERD,hyperparathyroidism, mental retarda tion, Pneumonia, pulmonary embolism, andschizophrenia who presents to the ED via EMS for shortness of breath andwheezing. Per triage note patient was given Duo-Ne b and Solu-Medrol 40 mg IM atfacility. 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 Authorizing Providermultivitamin (ONE A DAY) tablet Take 1 Tab by mouth daily. Yes Provider,Historicalclorazepate (TRANXENE ) 3.75 mg tablet Take by mouth nightly. Yes Provider,Historicalalbuterol-ipratro pium (DUO-NEB) 2.5 mg-0.5 mg/3 ml nebu 3 mL by Nebulizationroute every six (6) hours as needed. Yes Provider, HistoricallamoTRIgine (LAMICTAL) 25 mg t ablet Take 50 mg by mouth two (2) times a day.Yes Provider, Historicalcinacalcet ( SENSIPAR) 30 mg tablet Take 60 mg by mouth daily. Yes Provider,Historicalvalproat e (DEPAKENE) 250 mg/5 mL syrup Take 750 mg by mouth two (2) times a day.Provider, Hist oriPietro Known AllergiesHistory reviewed. No pertinent surgical history.History revie wed. No pertinent family history.Social HistorySocioeconomic History Marital st atus: SINGLE Spouse name: Not on file Number of children: Not on file Years o f education: Not on file Highest education level: Not on fileTobacco Use Smoking s tatus: Never Smoker Smokeless tobacco: Never UsedSubstance and Sexual Activity Alcoh ol use: No Drug use: NoReview of Yi Ji Electrical Applianceinent items are noted in the History of Present Illness.Physical Exam:Current medications:Current Facilit y-Administered Medications: heparin (porcine) injection 5,000 Units, 5,000 U nits, SubCUTAneous, Q12H,Polo Molina MD, 5,000 Units at 11/09/18 0412 albuterol -ipratropium (DUO-NEB) 2.5 MG-0.5 MG/3 ML, 3 mL, Nebulization, Q4HPRN, Polo Molina MD methylPREDNISolone (PF) (SOLU-MEDROL) injection 40 mg, 40 mg, IntraVENous,Q6H, Polo Molina MD, 40 mg at 11/09/18 1352 cinacalcet (SENSIPAR) tablet 60 mg, 60 m g, Oral, DAILY, Mili Hills DO,60 mg at 11/09/18 1000 lamoTRIgine (LaMICtal) t ablet 50 mg, 50 mg, Oral, BID, Mili iHlls DO,50 mg at 11/09/18 1000 ALP RAZolam (XANAX) tablet 0.25 mg, 0.25 mg, Oral, DAILY, Polo Molina MD,0.25 mg a t 11/09/18 1001 cefTRIAXone (ROCEPHIN) 1 g in 0.9% sodium chloride (MBP/ADV) 50 mL MBP, 1 g,IntraVENous, Q24H, Mili Hills DO, Last Rate: 100 mL/hr at 11/09/18 100 1, 1g at 11/09/18 1001 azithromycin (ZITHROMAX) 500 mg in 0.9% sodium chlori de 250 mL IVPB, 500 mg,IntraVENous, Q24H, Natasha Dudley MD, Last Rate: 250 mL/hr a t 11/08/182106, 500mg at 11/08/182106 0.45% sodium chloride infusion, 75 mL/hr , IntraVENous, CONTINUOUS, Flor Ross MD, Last Rate: 75 mL/hr at 11/09/18 0609 , 75 mL/hr at 11/09/18 0609 budesonide (PULMICORT) 500 mcg/2 ml nebulizer suspe nsion, 500 mcg,Nebulization, BID RT, Stella Hamilton MD, 500 mcg at 11/09/18 0748 albuterol-ipratropium (DUO-NEB) 2.5 MG-0.5 MG/3 ML, 3 mL, Nebulization, S3LNTKB, Gi ll, MD Stella, 3 mL at 11/09/18 1256DataVisit VitalsBP 112/72 (BP 1 Loca tion: Left arm, BP Patient Position: At rest;Head of bedelevated (Comment degree s))Pulse 80Temp 97.8 F (36.6 C)Resp 20Ht 5' 2" (1.575 m)Wt 59.1 kg (130 lb 6.4 oz)Sp O2 93%BMI 23.85 kg/m Intake and Output:Date 11/08/18 0700 - 11/09/18 0659 11/09/18 0 700 - 11/10/18 0659Shift [id number] 7988-6439 24 Hour Total 4892-8523 6532-6993 24 Tammy r TotalINTAKEShift Total(mL/kg)OUTPUTUrine(mL/kg/hr) 600(0 .8) 600(0.4) Urine Voided 600 600Shift Total(mL/kg) 600(10.1) 600(10.1)NET -6 00 -600Weight (kg) 60.8 59.1 59.1 59.1 59.1 59.1Pulse OX:SpO2 Readings from Last 6 E ncounters:11/09/18 93%09/26/15 96%@LASTSAO2(6)@PHYSICAL EXAM:General: Lethargic,responding.Head: Normocephalic, without obvious abnormality, atraumatic. Eyes: Conjunctivae clear, anicteric sclerae. Pupils are equalNose: Nares n ormal. No drainage or sinus tenderness.Throat: Lips, mucosa, and tongue normal. No ThrushNeck: Supple, symmetrical, no adenopathy, thyroid: no n tender no carotid bruit and no JVD.Back: Symmetric, No CVA tenderness.Lungs: Scattered rhonchi,Chest wall: No tenderness or deformity. No Accessory muscle use.He art: Regular rate and rhythm, no murmur, rub or gallop.Abdomen: Soft, non-tende r. Not distended. Bowel sounds normal. No massesExtremities: Extremities normal, a traumatic, No cyanosis. No edema. No clubbingSkin: Texture, turgor normal . No rashes or lesions. Not JaundicedLymph nodes: Cervical, supraclavicular normal. Psych: Good insight. Not depressed. Not anxious or agitated.Neurologic: EOMs int act. No facial asymmetry. No aphasia or slurred speech.Most recent labs:Recent L abs 11/08/1906WBC 17.0* 10.3 6.6HGB 14.0 1 3.9* 15.5HCT 41.0* 41.5* 47.6PLT 204 195 193Recent Labs 11/08/1906 0 11/08/1919NA 140 -- -- 139K 4.2 -- -- 4.1CL 104 -- -- 9 5*CO2 33* -- 49* 39*GLU 117* -- -- 122*BUN 15 -- -- 15CREA 0.50* -- -- 0.71CA 9.4 -- -- 9.2MG 2.1 1.6 -- 1.6ALB 2.9* -- -- 3.1*TBILI 0.4 -- -- 0.1*SGOT 17 -- -- 15ALT 14 -- -- 13INR 1.1 -- -- 1.0Recent Labs PH 7.41PCO2 73*PO2 77*HCO3 46*ABG:Recent Labs PH 7.41P CO2 73*PO2 77*HCO3 46*Cultures:No results found for: SDESLab ResultsComponent Valu e Date/Time Culture result: NO GROWTH 2 DAYS 11/07/2018 08:10 PM Culture result: NO G ROWTH 2 DAYS 11/07/2018 08:00 PMImages:Cta Chest W Or W Wo ContResult Date: 11/09/19 19Examination: CTA Chest ? PE angiography History: Hypoxia; rule out pneumoniavers us pulmonary embolism Priors: None Technique: Low-dose, multiplanar,helica l CTA chest was performed with bolus IV injection from lung apices tobases. 3D- reformatted images were obtained and reviewed on a dedicated viewingworkstation and di rectly supervised. Contrast: A total of 71 mL of Isovue-370was administered intravenou sly for this procedure. Findings: No evidence ofpulmonary embolism is seen. T here is decreased size of the right hemithorax fromchronic scarring and retr action with mediastinal shift left to right.Additional area of consolidation i s seen in the right lower lobe and suggestssuperimposed pneumonia with subs egmental atelectasis. Subsegmental atelectasisis also noted in the left jorge g base, with pleural parenchymal scarring. Lowlung volumes are seen. No pneumothora x seen. Aorta normal in caliber withoutaneurysm or dissection. Mediastin um no adenopathy. Mediastinal shift is seen inthe left and right as a result of chr onic changes in the right hemithorax.Heart shows no chamber enlargement or pericard ial effusion. No acute fracturesseen in the bony thorax, sternum, manubrium and rib cage. Multiple compressiondeformities are seen in the mid and lower thoracic spine , with superimposedspondyloarthropathy. Cannot exclude acute fracture.Impression : No evidence of pulmonary embolism Right lower lobe pneumoniasuggested. Incidenta l scarring and retraction in the right hemithorax fromremote/chronic inflammato ry disease and/or trauma. Bibasilar subsegmentalatelectasis. Report Electron ically Signed By: Pawel Zafar M.D. -11/08/2018 12:40 AMXr Chest PortResult D ate: 11/07/2018XR CHEST PORT CLINICAL INDICATION PROVIDED:. "sob." COMPARISON: . 09/26/2015.FINDINGS:. The pericardial/cardiac silhouette is enlarg ed in the transversedimension. There is no pulmonary vascular congestion or interst itial edema.Linear density in the left lung base and faint densities in the right mi d tolower lung likely represent atelectasis. There is no lobar consolidation oreffusi on. There is no pneumothorax.IMPRESSION:. Bilateral lower lung atelectasis. No donna dence of consolidation oreffusion.Assessment/PlanActive Problem s: COPD (chronic obstructive pulmonary disease) (HCC) (11/08/2018) Acute respir atory distress (11/08/2018) Pneumonia (11/08/2018) COPD exacerbation (HCC) () Acute resp failure combined, pneumonia acute copd exacerbation pe rul ed out.PLAN,Monitoring,Ivabx,Iv steroidsbipap prn and at night.NebD/w patient and nurs ing staff.Laurel Munson 2018The billing code submitted in [facility] this evaluation also includes thetime to review patient's prior records, communic ate with the physician team,obtain corroborating data, and discuss the risk and benefits of the proposedmanagement plan with the patient and their family >30 mi nutes. Name Value Range Interpretation Code Description Data Harriett rce(s) Supporting Document(s ) ID Date Data Source [id number] 11/09/2018 11:27:33 AM EDT [facility] Problem: Dysphagia (Adult)Goal: *Acute G oals and Plan of Care (Insert Text)DescriptionSpeech therapy goals:Ini tiated 11/09/20181. NPO. Alternate means of nutrition and hydration are recommended, at thistime.Note:SPEECH LANGUAGE PATHOLOGY BEDSIDE SWALLOW EVALUATIONPatient: Gunner Carlin (68 y.o. male)Date: 11/09/2018Primary Diagnosis: COPD (chroni c obstructive pulmonary disease) (HCC) [J44.9]Acute respiratory distress [R06.0 3]COPD exacerbation (HCC) [J44.1]Pneumonia [J18.9]Precautions: ASPIRATIONCurrent Re commendation: NPO. Alternate means of nutrition and hydration arerecommended, at this time.ASSESSMENT :Based on the objective data described below, the siri ent presents withDysphagia.Patient will benefit from skilled intervention to add ress the above impairments.Patient's rehabilitation potential is considered t o be Guarded, at this time.Factors which may influence rehabilitation potential inclu de:? None noted? Mental ability/status? Medical condi tion? Home/family situation and support systems? Safety aware ness? Pain tolerance/management? Other:PLAN :Recommendations and Planned Interventions: - NPO. Alternate means of nutrition and hydration are rec ommended, at thistime. 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 No pertinent surgical history.Diet prior to admission: UnknownPrior Level of Functio n/Home Situation:Home SituationHome Environment: senior living facilityOne /Two Story Residence: Other (Comment)Living Alone: NoSupport Systems: Skilled nursin g facilityPatient Expects to be Discharged to:: UnknownCurrent DME Used/Available a t Home: WheelchairCognitive and Communication Status:Neurologic State: Alert, Confused Orientation Level: Unable to verbalizeCognition: No command following Perception: Tactile, Verbal, VisualPerseveration: Tactile cues provid ed, Verbal cues provided, Visual cues providedSafety/Judgement: Lack of insigh t into deficitsOral Assessment:Oral AssessmentLabial: Decreased rate;Flaccid Dentition: IntactOral Hygiene: FairLingual: Decreased strength;Decreased rateVelum: Unable to visualizeMandible: RestrictedGag Reflex: (CNT)P.O. Trials:Patient Positio n: upright in bedVocal quality prior to P.O.: (not demonstrated/non-verbal at baseline )Consistency Presented: (Spoon-thick liquid)How Presented: SENIOR FUND ACCOUNTANT-fed/presented; SpoonHow Much: 3(spoonfuls)Bolus Acceptance: No impairmentBolus Formation/Control: Im pairedType of Impairment: Delayed;Premature spillage(HIGHLY suspected)Propulsion: De layed (# of seconds)Oral Residue: NoneInitiation of Swallow: Delayed (# of seconds)Laryngeal Elevation: DecreasedAspiration Signs/Symptoms: Decr ease in O2 saturations;Increase in RR;Infiltrateon chest xray(increased HR) Pharyngeal Phase Characteristics: Poor endurance;Easily fatigued ;Suspectedphar yngeal residueEffective Modifications: NoneComments: Overt signs of intolerance : penetration/aspiration(Patient orallydefensive to additional attempted PO trials)Oral Phase Severity: Mild-moderatePharyngeal Phase Severity : ModeratePain:After treatment:? Patient left in no apparent distress sit ting up in chair? Patient left in no apparent distress in bed? Call botello left within reach? Nursing notified? Caregiver p resent? Bed alarm activatedCOMMUNICATION/EDUCATION:The pat ient's plan of care including recommendations, planned interventions, andrecommended diet changes were discussed with: Registered Nurse.? Post ed safety precautions in patient's room.? Patient/family have participated as able in goal setting and planof care.? Patient/family agree to work towa rd stated goals and plan of care.? Patient understands intent and goals of therapy, but is neutralabout his/her participation.? Patient is un able to participate in goal setting and plan of care.Thank you for this referral.Corbin Rock MS, CCC-SLPTime Calculation: 15 mins Name Value Range Interpretation Code Description Data Harriett rce(s) Supporting Document(s ) ID Date Data Source [id number] 11/09/2018 07:02:32 AM EDT [facility] Bedside and Verbal shift change report g iven to Aditi Arriaga RN (oncomingnurse) by Marni Regalado RN (offgoing nurse). Re port included the followinginformation SBAR and Kardex. Name Value Range Interpretation Code Description Data Harriett rce(s) Supporting Document(s ) ID Date Data Source [id number] 11/09/2018 10:48:09 AM EDT [facility] Name Value Range Interpretation Description Data Sup porting Code Source(s) Document(s ) Streptococcus NEG [facility] - pneumoniae Ag Community [Presence] in Hospital Urine Presumptive negative suggests nocurrent or recent pneumococcal infection.Infection due to S.pneumonia cannot beruled out si nce the antigen presentin the sample may be below the detectionlimit of the test. Th is test is notintended as a substitute for gram stainand bacterial culture Service comment [facility] ID Date Data Source [id number] 11/09/2018 10:48:09 AM EDT [facility] Name Value Range Interpretation Description Data Sup porting Code Source(s) Document(s ) Streptococcus NEG [facility] Good pneumoniae Ag [facility] [Presence] in Hospital Urine Presumptive negative suggests nocurrent or recent pneumococcal infection.Infection due to S.pneumonia cannot beruled out si nce the antigen presentin the sample may be below the detectionlimit of the test. Th is test is notintended as a substitute for gram stainand bacterial culture Service comment [facility] - [facility] ID Date Data Source [id number] 11/09/2018 07:12:28 AM EDT [facility] - [facility] Name Value Range Interpretation Description Data Sup porting Code Source(s) Document(s ) Sodium 140 136-145 [facility] - [Moles/volume] mmol/L Community in Serum or Hospital Plasma Potassium 4.2 3.5-5.1 [facility] - [Moles/volume] mmol/L Community in Serum or Hospital Plasma Chloride 104 98-107 [facility] - [Moles/volume] mmol/L Community in Serum or Hospital Plasma Carbon 33 21-32 Above high normal [facility] - dioxide, total mmol/L Community [Moles/volume] Hospital in Serum or Plasma Anion gap in 8 mmol/L 10-20 Below low normal [facility] - Serum or Community Plasma Hospital Glucose 117 74-106 Above high normal [facility] - [Mass/volume] mg/dL Community in Serum or Hospital Plasma Urea nitrogen 15 mg/dL 7-18 [facility] - [Mass/volume] Community in Serum or Hospital Plasma Creatinine 0.50 0.70-1.3 Below low normal [facility] - [Mass/volume] mg/dL 0 Community in Serum or Hospital Plasma Glomerular >60 [facility] - filtration Community rate/1.73 sq M Hospital predicted among blacks [Volume Rate/Area] in Serum or Plasma by Creatinine-bas ed formula (MDRD) Glomerular >60 [facility] - filtration Community rate/1.73 sq M Hospital predicted among non-blacks [Volume Rate/Area] in Serum or Plasma by Creatinine-bas ed formula (MDRD) (NOTE)Estimated GFR is calculated using the Modification of Diet in RenalDisease (MDRD) Study equation, reported for both Americans(GFRAA) and non- Americans (GFRNA), and normalized to 1.7 6n7lsey surface area. The physician must decide which value applies tothe patient . The MDRD study equation should only be used inindividuals age 18 or older. It has no t been validated for thefollowing: women, patients with serious comorbid co nditions,or on certain medications, or persons with extremes of body size,muscl e mass, or nutritional status. Calcium [Mass/volume] in 9.4 mg/dL 8.5-10.1 [facility] Plasma Hospital Bilirubin.total 0.4 mg/dL 0.2-1.0 [facility] - Commun ity [Mass/volume] in Serum or Hosp ital Plasma Alanine aminotransferase 14 U/L 13-61 [facility] - [facility] [Enzymatic activity/volume] Ho spital in Serum or Plasma Aspartate aminotransferase 17 U/L 15-37 [facility] - [facility] [Enzymatic activity/volume] Ho spital in Serum or Plasma by With P-5'-P Alkaline phosphatase 46 U/L 45-117 [facility] ommunity [Enzymatic activity/volume] Ho spital in Serum or Plasma Protein [Mass/volume] in 6.6 g/dL 6.4-8.2 [facility] Serum or Plasma [facility] Albumin [Mass/volume] in 2.9 g/dL 3.5-4.7 Below low normal [facility] Serum or Plasma by [facility] Bromocresol purple (BCP) dye binding method Globulin [Mass/volume] in 3.7 g/dL 1.7-4.7 [facility] Serum by calculation Hospital Albumin/Globulin [Mass 0.8 0.7-2.8 [facility] Ratio] in Serum or Plasma Hosp ital ID Date Data Source [id number] 11/09/2018 07:12:28 AM EDT [facility] Name Value Range Interpretation Description Data Sup porting Code Source(s) Document(s ) Magnesium 2.1 mg/dL 1.6-2.6 [facility] - [Mass/volume] [facility] in Serum or Hospital Plasma ID Date Data Source [id number] 11/09/2018 06:54:35 AM EDT [facility] Name Value Range Interpretation Description Data Sup porting Code Source(s) Document(s ) Prothrombin 11.0 sec 9.4-11.1 [facility] - time (PT) [facility] INR in 1.1 0.8-1.2 [facility] - Platelet poor [facility] plasma by [facility] Coagulation assay ID Date Data Source [id number] 11/09/2018 06:52:04 AM EDT [facility] Name Value Range Interpretation Description Data Sup porting Code Source(s) Document(s ) Leukocytes 17.0 4.8-10.6 Above high normal [facility] - [#/volume] in K/uL Community Blood by Hospital Automated count Erythrocytes 4.26 4.70-6.0 Below low normal [facility] - [#/volume] in M/uL 0 Community Blood by Hospital Automated count Hemoglobin 14.0 14.0-18. [facility] - [Mass/volume] in g/dL 0 [facility] Blood [facility] Hematocrit 41.0 % 42.0-52. Below low normal [facility] - [Volume 0 Community Fraction] of Hospital Blood by Automated count Erythrocyte mean 96.2 FL 81.0-94. Above high normal [facility] - corpuscular 0 Community volume [Entitic Hospital volume] by Automated count Erythrocyte mean 32.9 PG 27.0-35. [facility] - corpuscular 0 [facility] [Entitic mass] by Automated count Erythrocyte mean 34.1 30.7-37. [facility] - corpuscular g/dL 3 [facility] hemoglobin Hospital concentration [Mass/volume] by Automated count Erythrocyte 13.6 % 11.5-14. [facility] - distribution 0 Community width [Ratio] by Hospital Automated count Platelets 204 K/uL 130-400 [facility] - [#/volume] in [facility] Blood by Hospital Automated count Platelet mean 9.9 FL 9.2-11.8 [facility] - volume [Entitic Community volume] in Blood Hospital by Automated count Segmented 90 % 48.0-72. Above high normal [facility] - neutrophils/100 0 Community leukocytes in Hospital Blood Lymphocytes/100 8 % 18.0-40. Below low normal [facility] - leukocytes in 0 [facility] Blood Hospital Monocytes/100 2 % 2.0-12.0 [facility] - leukocytes in [facility] Blood Hospital Eosinophils/100 0 % 0.0-7.0 [facility] - leukocytes in [facility] Blood Hospital Basophils/100 0 % 0.0-3.0 [facility] - leukocytes in [facility] Blood Hospital Segmented 15.1 1.5-6.6 Above high normal [facility] - neutrophils K/UL Community [#/volume] in Hospital Blood Lymphocytes 1.4 K/UL 1.5-3.5 Below low normal [facility] - [#/volume] in [facility] Blood Hospital Monocytes 0.4 K/UL 0.0-1.0 [facility] - [#/volume] in [facility] Blood Hospital Eosinophils 0.0 K/UL 0.0-0.7 [facility] - [#/volume] in [facility] Blood Hospital Basophils 0.0 K/UL 0.0-0.1 [facility] - [#/volume] in [facility] Blood Hospital Differential [facility] - cell count [facility] Blood [facility] Immature 0 % 0.0-2.0 [facility] - granulocytes/100 [facility] leukocytes in Hospital Blood by Automated count ID Date Data Source [id number] 11/09/2018 07:12:28 AM EDT [facility] Name Value Range Interpretation Description Data Sup porting Code Source(s) Document(s ) Sodium 140 136-145 [facility] - [facility] [Moles/volume] mmol/L [facility] in Serum or Hospital Plasma Potassium 4.2 3.5-5.1 [facility] - [facility] [Moles/volume] mmol/L [facility] in Serum or Hospital Plasma Chloride 104 98-107 [facility] - [facility] [Moles/volume] mmol/L [facility] in Serum or Hospital Plasma Carbon 33 21-32 Above high normal [facility] - Good dioxide, total mmol/L [facility] [Moles/volume] Hospital in Serum or Plasma Anion gap in 8 mmol/L 10-20 Below low normal [facility] - Go od Serum or [facility] Plasma Hospital Glucose 117 74-106 Above high normal [facility] - Good [Mass/volume] mg/dL [facility] in Serum or Hospital Plasma Urea nitrogen 15 mg/dL 7-18 [facility] - [facility] [Mass/volume] [facility] in Serum or Hospital Plasma Creatinine 0.50 0.70-1.3 Below low normal [facility] - Good [Mass/volume] mg/dL 0 [facility] in Serum or Hospital Plasma Glomerular >60 [facility] - Good filtration [facility] rate/1.73 sq M Hospital predicted among blacks [Volume Rate/Area] in Serum or Plasma by Creatinine-bas ed formula (MDRD) Glomerular >60 [facility] - Good filtration [facility] rate/1.73 sq M Hospital predicted among non-blacks [Volume Rate/Area] in Serum or Plasma by Creatinine-bas ed formula (MDRD) (NOTE)Estimated GFR is calculated using the Modification of Diet in RenalDisease (MDRD) Study equation, reported for both Americans(GFRAA) and non- Americans (GFRNA), and normalized to 1.7 9g5xhxt surface area. The physician must decide which value applies tothe patient . The MDRD study equation should only be used inindividuals age 18 or older. It has no t been validated for thefollowing: women, patients with serious comorbid co nditions,or on certain medications, or persons with extremes of body size,muscl e mass, or nutritional status. Calcium [Mass/volume] in 9.4 mg/dL 8.5-10.1 [facility] - Good Serum or Plasma [facility] ital Bilirubin.total 0.4 mg/dL 0.2-1.0 [facility] - Good [Mass/volume] in Serum or [facility] Plasma Alanine aminotransferase 14 U/L 13-61 [facility] - Good [Enzymatic activity/volume] [facility] in Serum or Plasma Aspartate aminotransferase 17 U/L 15-37 [facility] - Good [Enzymatic activity/volume] [facility] in Serum or Plasma by With P-5'-P Alkaline phosphatase 46 U/L 45-117 [facility] - G ood [Enzymatic activity/volume] [facility] in Serum or Plasma Protein [Mass/volume] in 6.6 g/dL 6.4-8.2 [facility] - Good Serum or Plasma [facility] ital Albumin [Mass/volume] in 2.9 g/dL 3.5-4.7 Below low normal [facility] - Good Serum or Plasma by [facility] ospital Bromocresol purple (BCP) dye binding method Globulin [Mass/volume] in 3.7 g/dL 1.7-4.7 [facility] - Good Serum by calculation [facility] Albumin/Globulin [Mass 0.8 0.7-2.8 [facility] - Good Ratio] in Serum or Plasma [facility] ID Date Data Source [id number] 11/09/2018 07:12:28 AM EDT [facility] - [facility] Name Value Range Interpretation Description Data Sup porting Code Source(s) Document(s ) Magnesium 2.1 mg/dL 1.6-2.6 [facility] - Good [Mass/volume] [facility] in Serum or Hospital Plasma ID Date Data Source [id number] 11/09/2018 06:54:35 AM EDT [facility] Name Value Range Interpretation Description Data Sup porting Code Source(s) Document(s ) Prothrombin 11.0 sec 9.4-11.1 [facility] - Good time (PT) [facility] INR in 1.1 0.8-1.2 [facility] - Good Platelet poor [facility] plasma by [facility] Coagulation assay ID Date Data Source [id number] 11/09/2018 06:52:04 AM EDT [facility] Name Value Range Interpretation Description Data Sup porting Code Source(s) Document(s ) Leukocytes 17.0 4.8-10.6 Above high normal [facility] - [#/volume] in K/uL [facility] Blood by [facility] Automated count [facility] Erythrocytes 4.26 4.70-6.0 Below low normal [facility] - [#/volume] in M/uL 0 Good Blood by [facility] Automated count [facility] Hemoglobin 14.0 14.0-18. [facility] - [Mass/volume] in g/dL 0 Good Blood [facility] Hematocrit 41.0 % 42.0-52. Below low normal [facility] - [Volume 0 [facility] Fraction] of [facility] Blood by Hospital Automated count Erythrocyte mean 96.2 FL 81.0-94. Above high normal [facility] - corpuscular 0 Good volume [Entitic [facility]ist volume] by Hospital Automated count Erythrocyte mean 32.9 PG 27.0-35. [facility] - corpuscular 0 Good hemoglobin [facility] [Entitic mass] Hospital by Automated count Erythrocyte mean 34.1 30.7-37. [facility] - corpuscular g/dL 3 [facility] hemoglobin [facility] concentration [facility] [Mass/volume] by Automated count Erythrocyte 13.6 % 11.5-14. [facility] - distribution 0 Good width [Ratio] by [facility] Automated count [facility] Platelets 204 K/uL 130-400 [facility] - [#/volume] in Good Blood by [facility] Platelet mean 9.9 FL 9.2-11.8 [facility] - volume [Entitic Good volume] in Blood [facility] by Automated Hospital count Segmented 90 % 48.0-72. Above high normal [facility] - neutrophils/100 0 Good leukocytes in [facility] Lymphocytes/100 8 % 18.0-40. Below low normal [facility] - leukocytes in 0 [facility] Monocytes/100 2 % 2.0-12.0 [facility] - leukocytes in [facility] Eosinophils/100 0 % 0.0-7.0 [facility] - leukocytes in [facility] Basophils/100 0 % 0.0-3.0 [facility] - leukocytes in [facility] Segmented 15.1 1.5-6.6 Above high normal [facility] - neutrophils K/UL Good [#/volume] in [facility] Lymphocytes 1.4 K/UL 1.5-3.5 Below low normal [facility] - [#/volume] in [facility] Monocytes 0.4 K/UL 0.0-1.0 [facility] - [#/volume] in [facility] Eosinophils 0.0 K/UL 0.0-0.7 [facility] - [#/volume] in [facility] Basophils 0.0 K/UL 0.0-0.1 [facility] - [#/volume] in [facility] Differential [facility] - cell count [facility] Immature 0 % 0.0-2.0 [facility] - granulocytes/100 Good leukocytes in [facility] Hospital Automated count ID Date Data Source [id number] 11/09/2018 07:16:02 AM EDT [facility] - [facility] Name Value Range Interpretation Description Data Sup porting Code Source(s) Document(s ) Color of Urine YEL [facility] - [facility] Appearance of CLEAR [facility] - Urine [facility] Specific gravity 1.009 1.003-1. [facility] - of Urine by 030 [facility] of Urine by 8.0 4.6-8.0 [facility] - Test strip [facility] Protein NEG [facility] - [Mass/volume] in Good Urine by Test [facility] Hospital Glucose NEG [facility] - [Mass/volume] in Good Urine by [facility] Automated test Hospital strip Ketones NEG [facility] - [Presence] in Good Urine by [facility] Automated test Hospital strip Bilirubin.total NEG [facility] - [Presence] in Good Urine [facility] Hemoglobin NEG [facility] - [Presence] in Good Urine by Test [facility] Urobilinogen 0.2 0.2-1.0 [facility] - [Presence] in EU/dL Good Urine by [facility] Automated test Hospital strip Nitrite NEG [facility] - [Presence] in Good Urine by [facility] test Hospital strip Leukocyte NEG [facility] - esterase Good [Presence] in [facility] Urine by Hospital Automated test strip ID Date Data Source [id number] 11/09/2018 07:16:02 AM EDT [facility] - [facility] Name Value Range Interpretation Description Data Sup porting Code Source(s) Document(s ) Color of Urine YEL [facility] - [facility] Appearance of CLEAR [facility] - Urine [facility] Specific gravity 1.009 1.003-1. [facility] - of Urine by 030 [facility] Refractometry [facility] pH of Urine by 8.0 4.6-8.0 [facility] - Test strip [facility] Protein NEG [facility] - [Mass/volume] in Community Urine by Test Hospital strip Glucose NEG [facility] - [Mass/volume] in Community Urine by Hospital Automated test strip Ketones NEG [facility] - [Presence] in Community Urine by Hospital Automated test strip Bilirubin.total NEG [facility] - [Presence] in Community Urine [facility] Hemoglobin NEG [facility] - [Presence] in Community Urine by Test Hospital strip Urobilinogen 0.2 0.2-1.0 [facility] - [Presence] in EU/dL Community Urine by Hospital Automated test strip Nitrite NEG [facility] - [Presence] in Community Urine by Hospital Automated test strip Leukocyte NEG [facility] - esterase Community [Presence] in Hospital Urine by Automated test strip ID Date Data Source [id number] 11/09/2018 01:12:51 AM EDT [facility] - [facility] Problem: Pressure Injury - Risk ofGoal: *Prevention of pressure injuryDescriptionDocument Butch Scale a nd appropriate interventions in the flowsheet.Outcome: Progressing Towards G oalNote:Pressure Injury Interventions:Sensory Interventions: Assess changes in LOCMois ture Interventions: Absorbent underpadsActivity Interventions: Pressur e redistribution bed/mattress(bed type)Mobility Interventions: Pressure re distribution bed/mattress (bed type), Turnand reposition approx. every two hours(ariel w and wedges)Nutrition Interventions: Document food/fluid/supplement intakeFri ction and Shear Interventions: Apply protective barrier, creams andemollients Name Value Range Interpretation Code Description Data Harriett rce(s) Supporting Document(s ) ID Date Data Source [id number] 11/08/2018 09:06:28 PM EDT [facility] Name Value Range Interpretation Description Data Sup porting Code Source(s) Document(s ) Lactate 2.4 0.4-2.0 Above upper panic [facility] - [Moles/volu MMOL/L limits [facility]] in Hospital Serum or Plasma CALLED TO AND READ BACK BYNANCY HARKINS 9:06PM OUSSEAU ID Date Data Source [id number] 11/08/2018 09:06:28 PM EDT [facility] Name Value Range Interpretation Description Data Sup porting Code Source(s) Document(s ) Lactate 2.4 0.4-2.0 Above upper panic [facility] Good [Moles/volu MMOL/L limits [facility]] in Hospital Serum or Plasma CALLED TO AND READ BACK BYNANCY HARKINS 9:06PM JROUSSEAU ID Date Data Source [id number] 11/08/2018 07:12:37 PM EDT [facility] Bedside shift change report given to Miguelito Rome RN (oncoming nurse) Janusz Rivera RN (offgoing nurse). Report inc luded the following information SBAR. Name Value Range Interpretation Code Description Data Harriett rce(s) Supporting Document(s ) ID Date Data Source [id number] 11/08/2018 04:47:49 PM EDT [facility] History provided by: Triage notes7:31 PM : Evelio Carlin is a 68 y.o. male with h/o COPD, GERD,hyperparathyroidism, ment al retardation, Pneumonia, pulmonary embolism, andschizophrenia who presents to the ED via EMS for shortness of breath andwheezing. Per triage note patient [place] 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 No pertinent surgical history.History reviewed. No pertinent family history.So cial HistorySocioeconomic History Marital status: SINGLE Spouse name: Not on file Number of children: Not on file Years of education: Not on file Highest educatio n level: Not on fileOccupational History Not on fileSocial Needs Financial resource strain: Not on file Food insecurity: Worry: Not on file Inability: Not on file Tra nsportation needs: Medical: Not on file Non-medical: Not on fileTobacco Use Smo wanda status: Never Smoker Smokeless tobacco: Never UsedSubstance and Sexual Activity Alcohol use: No Drug use: No Sexual activity: Not on fileLifestyle Physical activity: Days per week: Not on file Minutes per session: Not on file Stress : Not on fileRelationships Social connections: Talks on phone: Not on yoshi e Gets together: Not on file Attends quaker service: Not on file Active m ember of club or organization: Not on file Attends meetings of clubs or organizatio ns: Not on file Relationship status: Not on file Intimate partner violence: Fear o f current or ex partner: Not on file Emotionally abused: Not on file Physica lly abused: Not on file Forced sexual activity: Not on fileOther Topics Concer n Not on fileSocial History Narrative Not on fileALLERGIES: Patient has no known a llergies.Review of SystemsUnable to perform ROS: OtherVitals: 11/07/18191211/07/18 1917BP: 146/83Pulse: (!) 112Resp: 23SpO2: (!) 84% (!) 89% 7:13 PM Pulse Oximetry r eading is 84 % on room air, which indicates hypoxia Lisa Lucio MD.Physical ExamConstitutional: He appears well-developed and well-nourished. No distress.HENT:Hea d: Normocephalic and atraumatic.Right Ear: External ear normal.Left Ear: External e ar normal.Nose: Nose normal.Mouth/Throat: Oropharynx is clear and moist.Eyes: Pupi ls are equal, round, and reactive to light. Conjunctivae and EOM arenormal. No scler al icterus.Neck: Normal range of motion. Neck supple.Cardiovascular: Normal rate, regu lar rhythm, S1 normal, S2 normal, normal heartsounds and intact distal pulses. Ex am reveals no gallop and no friction rub.No murmur heard.Pulmonary/Chest: Effort nor mal. No respiratory distress. He has no wheezes. Hehas no rales.Diminished breat h sounds at the basesAbdominal: Soft. He exhibits no distension. There is no hepa tosplenomegaly.There is no tenderness. There is no rebound and no guarding.Musculoske letal: Normal range of motion. He exhibits no edema or tenderness.Neurological: He is alert. He has normal strength. No cranial nerve deficit. Heexhibits normal muscle tone. Coordination normal.Non-verbal at baselineSkin: Skin is warm and dry.Nursi ng note and vitals reviewed.MDMNumber of Diagnoses or Management OptionsAcute exa cerbation of chronic obstructive pulmonary disease (COPD) (HCC):Community acquired pneumonia of right lower lobe of lung (HCC):Amount and/or Complexity of Data R eviewedClinical lab tests: ordered and reviewedTests in the radiology section o f CPT : ordered and reviewedDecide to obtain previous medical records or to obtain hi story from someoneother than the patient: yesObtain history from someone other myrtle n the patient: yesReview and summarize past medical records: yesDiscuss the patient with other providers: yesIndependent visualization of images, tracings, or sp ecimens: yesProSherry Christine Kimberly, MD, reviewed the patient's past history, all ergies and homemedications as documented in the nursing chart.Labs:Recent Results (f rom the past 12 hour(s))EKG, 12 LEAD, INITIAL Collection Time: 11/07/18 7:15 PMResult Value Ref Range Ventricular Rate 111 BPM Atrial Rate 111 BPM P-R Interval 156 ms QRS Duration 94 ms Q-T Interval 363 ms QTC Calculation (Bezet) 493 ms Calculated P [place] 45 degrees Calculated R [place] 19 degrees Calculated T [place] 43 degrees Diagnosis S inus tachycardiaInferior infarct, oldMETABOLIC PANEL, COMPREHENSIVE Colle tion Time: 11/07/18 8:10 PMResult Value Ref Range Sodium 139 136 - 145 mmol/L Potass ium 4.1 3.5 - 5.1 mmol/L Chloride 95 (L) 98 - 107 mmol/L CO2 39 (H) 21 - 32 mmol/L Ani on gap 10 10 - 20 mmol/L Glucose 122 (H) 74 - 106 mg/dL BUN 15 7 - 18 mg/dL Creatinine 0.71 0.70 - 1.30 mg/dL GFR est AA >60 >60 ml/min/1.73m2 GFR est non-AA >60 >60 ml/ min/1.73m2 Calcium 9.2 8.5 - 10.1 mg/dL Bilirubin, total 0.1 (L) 0.2 - 1.0 mg/dL ALT (SGPT) 13 13 - 61 U/L AST (SGOT) 15 15 - 37 U/L Alk. phosphatase 72 45 - 117 U/L Protein, total 7.4 6.4 - 8.2 g/dL Albumin 3.1 (L) 3.5 - 4.7 g/dL Globulin 4.3 1.7 - 4. 7 g/dL A-G Ratio 0.7 0.7 - 2.8CBC WITH AUTOMATED DIFF Collection Time: 11/07/18 8:10 PMResult Value Ref Range WBC 6.6 4.8 - 10.6 K/uL RBC 4.78 4.70 - 6.00 M/uL HGB 15.5 14.0 - 18.0 g/dL HCT 47.6 42.0 - 52.0 % MCV 99.6 (H) 81.0 - 94.0 FL MCH 32.4 27. 0 - 35.0 PG MCHC 32.6 30.7 - 37.3 g/dL RDW 13.4 11.5 - 14.0 % PLATELET 193 130 - 40 0 K/uL MPV 10.1 9.2 - 11.8 FL NEUTROPHILS 90 (H) 48.0 - 72.0 % LYMPHOCYTES 9 (L) 18.0 - 40.0 % MONOCYTES 1 (L) 2.0 - 12.0 % EOSINOPHILS 0 0.0 - 7.0 % BASOPHILS 0 0. 0 - 3.0 % ABS. NEUTROPHILS 5.9 1.5 - 6.6 K/UL ABS. LYMPHOCYTES 0.6 (L) 1.5 - 3.5 K/UL ABS. MONOCYTES 0.1 0.0 - 1.0 K/UL ABS. EOSINOPHILS 0.0 0.0 - 0.7 K/UL ABS. BASO PHILS 0.0 0.0 - 0.1 K/UL DF AUTOMATED IMMATURE GRANULOCYTES 1 0.0 - 2.0 %TROPO MARLEN I Collection Time: 11/07/18 8:10 PMResult Value Ref Range Troponin-I, Qt. <0.02 0.00 - 0.05 NG/MLMAGNESIUM Collection Time: 11/07/18 8:10 PMResult Value Ref Range Magnesium 1.6 1.6 - 2.6 mg/dLBNP Collection Time: 11/07/18 8:10 PMResult Value Ref Range BNP 41 0 - 100 pg/mLPROTHROMBIN TIME + INR Collection T jose alejandro: 11/07/18 8:10 PMResult Value Ref Range Prothrombin time 10.3 9.4 - 11.1 sec INR 1.0 0.8 - 1.2PTT Collection Time: 11/07/18 8:10 PMResult Value Ref Range aPTT 25.4 21.0 - 28.0 SECLACTIC ACID Collection Time: 11/07/18 8:10 PMResult Value Ref Range Lactic acid 2.5 (HH) 0.4 - 2.0 MMOL/LBLOOD GAS, ARTERIAL Collection Time: 11/07/18 9:23 PMResult Value Ref Range pH 7.41 7.35 - 7.45 PCO2 73 (HH) 32 - 48 mmHg PO2 77 (L ) 83 - 108 mmHg CO2, TOTAL 49 (H) 19 - 24 mmol/L BICARBONATE 46 (HH) 21 - 28 mmol/ L O2 SAT 97 94 - 98 % BASE EXCESS 17.6 (H) 0 - 3 mmol/L SITE RIGHT RADIAL MIRANDA'S TASHA T POSITIVE DEVICE NASAL O2 O2 FLOW 2 L/min Respiratory comment: CALLED TO AND READ BACK BY Performed by [id number] ACID Collection Time: 11/08/18 3:40 AMResult Value Ref Range Lactic acid 4.1 (HH) 0.4 - 2.0 MMOL/LEK:15 PM Sinus Tachycardia at 111 BPM with Q wave at 2,3, and aVF, and withno acute ischemic changes. Interpret ed by Lisa Powell MD.7:15 PM monitoring tech reading shows sinus tachycardia at 111 BPM. Interpretedby Lisa Powell MD.Radiology:CXR Results (Last 48 hours ) 11/07/181954 XR CHEST PORT Final result Impression: IMPRESSION:.Bilateral lower lung atelectasis. No evidence of consolidation or effusion. Narrative: X R CHEST PORTCLINICAL INDICATION PROVIDED:. "sob."COMPARISON:. 09/26/2015.FINDINGS:.T he pericardial/cardiac silhouette is enlarged in the transverse dimension.There is no pulmonary vascular congestion or interstitial edema. Linear densityin the left lung ba se and faint densities in the right mid to lower lung likelyrepresent atelectasis. There is no lobar consolidation or effusion. There is nopneumothorax.CT Results (Las t 48 hours) 11/08/18 0025 CTA CHEST W OR W WO CONT Final result Impression: Impres elio:No evidence of pulmonary embolismRight lower lobe pneumonia suggested.Incidenta l scarring and retraction in the right hemithorax from remote/chronicinflammato ry diseaseand/or trauma.Bibasilar subsegmental atelectasis.Report Electron leigh Signed By: Pawel Zafar M.D. - 11/08/2018 12:40 AM Narrative: Examinati on: CTA Chest ? PE angiographyHistory: Hypoxia; rule out pneumonia versus pulmo nary embolismPriors: NoneTechnique: Low-dose, multiplanar, helical CTA chest was performed with bolus IV injection from lungapices to bases. 3D-reformatted katja ges were obtained and reviewed on adedicated viewing workstation anddirectly supervis ed.Contrast: A total of 71 mL of Isovue-370 was administered intravenously for this procedure.Findings:No evidence of pulmonary embolism is seen.There is decreased size of the right hemithorax from chronic scarring andretraction with mediastinals hift left to right. Additional area of consolidation is seen in the rightlower lobe and suggestssuperimposed pneumonia with subsegmental atelectasis. Subsegmental atelectasisis also noted in the leftlung base, with pleural parenchymal scarring. Low lung volumes are seen.No pneumothorax seen.Aorta normal in caliber without ane urysm or dissection.Mediastinum no adenopathy. Mediastinal shift is seen i n the left and right as a result of chronicchanges in the right hemithorax.H eart shows no chamber enlargement or pericardial effusion.No acute fractures seen in the bony thorax, sternum, manubrium and rib cage.Multiple compressiondeformi ties are seen in the mid and lower thoracic spine, with superimposedspondyloarthropa thy. Cannotexclude acute fracture.Radiology reviewed by Lisa Powell MD.<EMERGEN CY DEPARTMENT CASE SUMMARY>Impression/Differential Diagnosi s: COPD exacerbation, pneumoniaED Course:68 y.o. male presented to the ED via EMS fo r shortness of breath and wheezing.7:27 PM: Order labs, Troponin, EKG, CXR, and card iac monitor.8:18 PM: Order arterial blood gas and give Duo-Neb.8:28 PM: Give Solu-Med rol.9:23 PM: Order additional arterial blood gas.10:02 PM: Order CTA chest.10:08 PM: Give Zithromax and Rocephin.10:31 PM: Case presentation and findings discussed with (PCP), whowill admit the patient. Patient was reassessed prior to disposit ion.Final Impression/Diagnosis:Encounter Diagnoses ICD-10-CM ICD-9-CM1. Acute ex acerbation of chronic obstructive pulmonary disease (COPD) ([facility])J44.1 491.212. Commu nity acquired pneumonia of right lower lobe of lung ([facility]) J18.1 481Patient condition at time of disposition: stable.I have reviewed the following home medications: Prior to Admission medicationsMedication Sig Start Date End Date Taking? Authorizing Providerclorazepate (TRANXENE) 3.75 mg tablet Take 3.75 mg by mouth. Yes Other, Phys ,MDalbuterol-ipratropium (DUO-NEB) 2.5 mg-0.5 mg/3 ml nebu 3 mL by Nebulizationroute e very six (6) hours. Yes Provider, HistoricalOTHER Take by mouth daily. mu ltivitamin Yes Provider, HistoricallamoTRIgine (LAMICTAL) 25 mg t ablet Take 50 mg by mouth two (2) times a day.Yes Provider, Historicalcinacalcet ( SENSIPAR) 30 mg tablet Take 60 mg by mouth daily. Yes Provider,Historicalbudesoni de (PULMICORT) 0.5 mg/2 mL nbsp 500 mcg by Nebulization route two (2)times a day. Provider, Historicalvalproate (DEPAKENE) 250 mg/5 mL syrup Take 750 mg by mouth t wo (2) times a day.Provider, Lisa Marin MD IAnna, am serv ing as a scribe to document services personallyperformed by Lisa Powell MD based on my observation and the provider'sstatements to me.I, Jacquelyn Powell MD, attest that the person(s) noted above, acting as myscribe(s) noted above , has observed my performance of the services and hasdocumented them in accordance wit h my direction. I have personally reviewed theabove information and have ordered an d reviewed the diagnostic studies, unlessotherwise noted. Name Value Range Interpretation Code Description Data Harriett rce(s) Supporting Document(s ) ID Date Data Source [id number] 11/08/2018 01:58:35 PM EDT [facility] PULMONARY/ CCM- Consult NotePatient: Ivelisse Carlin Sex: male DOA: 11/07/2018Date of : 1 Age: 68 y.o. LOS: LOS: 0 daysHPI:Evelio Carlin is a 68 y.o. m fuentes who has been seen for resp failure.7:31 PM: Evelio Carlin is a 68 y.o. male with h/o COPD, GERD,hyperparathyroidism, mental retardation, Pneumonia, pulmonary embolism, andschizophrenia who presents to the ED via EMS for shortness of breath a ndwheezing. Per triage note patient was given Duo-Neb and Solu-Medrol 40 mg IM at[facility]. 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 Authoriz ing Providermultivitamin (ONE A DAY) tablet Take 1 Tab by mouth daily. Yes Provide r,Historicalclorazepate (TRANXENE) 3.75 mg tablet Take by mouth nightly. Yes Pro vider,Historicalalbuterol-ipratropium (DUO-NEB) 2.5 mg-0.5 mg/3 ml nebu 3 mL b y Nebulizationroute every six (6) hours as needed. Yes Provider, HistoricallamoTR Igine (LAMICTAL) 25 mg tablet Take 50 mg by mouth two (2) times a day.Yes Provider, Historicalcinacalcet (SENSIPAR) 30 mg tablet Take 60 mg by mouth daily. Yes Provide r,Historicalvalproate (DEPAKENE) 250 mg/5 mL syrup Take 750 mg by mouth two (2) times a day.Provider, HistoricalNo Known AllergiesHistory reviewed. No pertinent surgical history.History reviewed. No pertinent family history.Social HistoryS ocioeconomic History Marital status: SINGLE Spouse name: Not on file Number of chil dren: Not on file Years of education: Not on file Highest education level: Not on fi leTobacco Use Smoking status: Never Smoker Smokeless tobacco: Never UsedSubstance a nd Sexual Activity Alcohol use: No Drug use: NoReview of SystemsPertinent items are noted in the History of Present Illness.Physical Exam:Current medication s:Current Facility-Administered Medications: heparin (porcine) injection 5,000 Units , 5,000 Units, SubCUTAneous, Q12H,Polo Molina MD, 5,000 Units at 11/08/18 0617 albuterol-ipratropium (DUO-NEB) 2.5 MG-0.5 MG/3 ML, 3 mL, Nebulization, Q4HPRN, Rut Polo hogan MD methylPREDNISolone (PF) (SOLU-MEDROL) injection 40 mg, 40 mg, In traVENous,Q6H, Polo Molina MD, 40 mg at 11/08/18 0617 cinacalcet (SENSIPAR) ta blet 60 mg, 60 mg, Oral, DAILY, Mili Hills, DO,Stopped at 11/08/18 0900 l amoTRIgine (LaMICtal) tablet 50 mg, 50 mg, Oral, BID, Mili Hills DO,Stopped a t 11/08/18 09 ALPRAZolam (XANAX) tablet 0.25 mg, 0.25 mg, Oral, DAILY, Maryam Molina MD,Stopped at 11/08/18 09 cefTRIAXone (ROCEPHIN) 1 g in 0.9% sodiu m chloride (MBP/ADV) 50 mL MBP, 1 g,IntraVENous, Q24H, Mili Hills DO , Last Rate: 100 mL/hr at 11/08/18 0904, 1g at 11/08/18 0904 azithromycin (ZITHROM AX) 500 mg in 0.9% sodium chloride 250 mL IVPB, 500 mg,IntraVENous, Q24H, Yassine Dudley MD 0.45% sodium chloride infusion, 75 mL/hr, IntraVENous, CONTINUOUS, Flor Ross MD, Last Rate: 75 mL/hr at 11/08/18 1152, 75 mL/hr at 11/08/18 1152 albute rol-ipratropium (DUO-NEB) 2.5 MG-0.5 MG/3 ML, 3 mL, Nebulization, Q4HRT, Adrián Ross ri, MDDataVisit VitalsBP 121/74 (BP 1 Location: Left arm)Pulse 96Temp 98.3 F (36.8 C)Resp 18Ht 5' 2" (1.575 m)Wt 60.8 kg (134 lb)SpO2 96%BMI 24.51 kg/m Intake an d Output:Pulse OX:SpO2 Readings from Last 6 Encounters:11/08/18 96%09/26/15 96%@LAST SAO2(6)@PHYSICAL EXAM:General: Lethargic,responding.Head: Normocephal ic, without obvious abnormality, atraumatic.Eyes: Conjunctivae clear, a nicteric sclerae. Pupils are equalNose: Nares normal. No drainage or sinus tende rness.Throat: Lips, mucosa, and tongue normal. No ThrushNeck: Supple, symmetr ical, no adenopathy, thyroid: non tender no carotid bruit and no JVD.Back: Symmet rodger, No CVA tenderness.Lungs: Scattered rhonchi,Chest wall: No tenderness or de formity. No Accessory muscle use.Heart: Regular rate and rhythm, no murmur, rub or gallop.Abdomen: Soft, non-tender. Not distended. Bowel sounds normal. No mass esExtremities: Extremities normal, atraumatic, No cyanosis. No edema. No c lubbingSkin: Texture, turgor normal. No rashes or lesions. Not JaundicedLymph n odes: Cervical, supraclavicular normal.Psych: Good insight. Not depressed. Not anxi ous or agitated.Neurologic: EOMs intact. No facial asymmetry. No aphasia or slurred speech.Most recent labs:Recent Labs 11/08/19190WBC 10.3 6.6HGB 13.9* 15.5HCT 41.5* 47.6PLT 195 193Recent Labs 11/07/192011/07/18 2010NA -- -- 139K -- -- 4.1CL -- -- 95*CO2 -- 49* 39*GLU -- -- 122 *BUN -- -- 15CREA -- -- 0.71CA -- -- 9.2MG 1.6 -- 1.6ALB -- -- 3.1* TBILI -- -- 0.1*SGOT -- -- 15ALT -- -- 13INR -- -- 1.0Recent Labs PH 7.41PCO2 73*PO2 77*HCO3 46*ABG:Recent Labs PH 7.41P CO2 73*PO2 77*HCO3 46*Cultures:No results found for: CloudaccLab ResultsComponent Valu e Date/Time Culture result: NO GROWTH AFTER 10 HOURS 11/07/2018 08:10 PM Culture res ult: NO GROWTH AFTER 10 HOURS 11/07/2018 08:00 PMImages:Cta Chest W Or W Wo ContR esult Date: 11/08/2018Examination: CTA Chest ? PE angiography History: Hypoxia; rule out pneumoniaversus pulmonary embolism Priors: None Technique: Low-dose, mult iplanar,helical CTA chest was performed with bolus IV injection from lung apices tob ases. 3D-reformatted images were obtained and reviewed on a dedicated viewingworks tation and directly supervised. Contrast: A total of 71 mL of Isovue-370was administ ered intravenously for this procedure. Findings: No evidence ofpulmonary emboli sm is seen. There is decreased size of the right hemithorax fromchronic scarring an d retraction with mediastinal shift left to right.Additional area of consolidation i s seen in the right lower lobe and suggestssuperimposed pneumonia with subs egmental atelectasis. Subsegmental atelectasisis also noted in the left jorge g base, with pleural parenchymal scarring. Lowlung volumes are seen. No pneumothora x seen. Aorta normal in caliber withoutaneurysm or dissection. Mediastin um no adenopathy. Mediastinal shift is seen inthe left and right as a result of chr onic changes in the right hemithorax.Heart shows no chamber enlargement or pericard ial effusion. No acute fracturesseen in the bony thorax, sternum, manubrium and rib cage. Multiple compressiondeformities are seen in the mid and lower thoracic spine , with superimposedspondyloarthropathy. Cannot exclude acute fracture.Impression : No evidence of pulmonary embolism Right lower lobe pneumoniasuggested. Incidenta l scarring and retraction in the right hemithorax fromremote/chronic inflammato ry disease and/or trauma. Bibasilar subsegmentalatelectasis. Report Electron ically Signed By: Pawel Zafar M.D. -11/08/2018 12:40 AMXr Chest PortResult D ate: 11/07/2018XR CHEST PORT CLINICAL INDICATION PROVIDED:. "sob." COMPARISON: . 09/26/2015.FINDINGS:. The pericardial/cardiac silhouette is enlarg ed in the transversedimension. There is no pulmonary vascular congestion or interst itial edema.Linear density in the left lung base and faint densities in the right mi d tolower lung likely represent atelectasis. There is no lobar consolidation oreffusi on. There is no pneumothorax.IMPRESSION:. Bilateral lower lung atelectasis. No donna dence of consolidation oreffusion.Assessment/PlanActive Problem s: COPD (chronic obstructive pulmonary disease) (HCC) (11/08/2018) Acute resp fa ilure combined, pneumonia acute copd exacerbation pe ruled out.PLAN,Monitorin g,Ivabx,Iv steroidsbipap prn and at night.NebD/w patient and nursing staff.H Laurel Johnson 201812:18 PMThe billing code submitted in association wi this evaluation also includes thetime to review patient's prior records, communic ate with the physician team,obtain corroborating data, and discuss the risk and benefits of the proposedmanagement plan with the patient and their family >45 mi nutes. Name Value Range Interpretation Code Description Data [facility] rce(s) Supporting Document(s ) ID Date Data Source [id number] 11/08/2018 01:39:07 PM EDT [facility] Randhawa notice left at bedside, dr hills a dvised of status Name Value Range Interpretation Code Description Data [facility] rce(s) Supporting Document(s ) ID Date Data Source [id number] 11/08/2018 01:37:23 PM EDT [facility] Review of clinicals with Dr Drake who advised cm that he will cont and reevaluate pt tomorrow for status change as pt is c urrently observation. Chartindicates pt pcp is Dr Hills, call to dr hills who repo rts her plan is toassess pt today and follow, will assess him for inpt status. Per dr hills pt [facility], call to pt emergency contact Brook Brambila who a dvisedcm she is not emergency contact but had contact number for pt sister Yuliet Pendleton t [phone].call to number , out of service.Pt will be followed by Dr Hills and evaluated for clinical status in am Name Value Range Interpretation Code Description Data [facility] rce(s) Supporting Document(s ) ID Date Data Source [id number] 11/08/2018 01:12:35 PM EDT [facility] Problem: Pressure Injury - Risk ofGoal: *Prevention of pressure injuryDescriptionDocument Butch Scale a nd appropriate interventions in the flowsheet.11/08/2018 1311 by Donis Rivera RNOutcome: Progressing Towards GoalNote:Pressure Injury Interventions:S ensory Interventions: Turn and reposition approx. every two hours (pillows andwedg es if needed), Pressure redistribution bed/mattress (bed type), Check visualcue s for painMoisture Interventions: Contain wound drainage, Apply protective barrier , creamsand emollients, Absorbent underpadsActivity Interventions: Pressur e redistribution bed/mattress(bed type)Mobility Interventions: Turn and re position approx. every two hours(pillow andwedges), Pressure redistribution bed/ mattress (bed type)Nutrition Interventions: Discuss nutritional consult with provide rFriction and Shear Interventions: Apply protective barrier, creams andemollients , Foam dressings/transparent film/skin sealants11/08/2018 1241 by Grace Rivera RNOutcome: Progressing Towards GoalNote:Pressure Injury Interventions:S ensory Interventions: Turn and reposition approx. every two hours (pillows andwedg es if needed), Pressure redistribution bed/mattress (bed type), Check visualcue s for painMoisture Interventions: Contain wound drainage, Apply protective barrier , creamsand emollients, Absorbent underpadsActivity Interventions: Pressur e redistribution bed/mattress(bed type)Mobility Interventions: Turn and re position approx. every two hours(pillow andwedges), Pressure redistribution bed/ mattress (bed type)Nutrition Interventions: Discuss nutritional consult with provide rFriction and Shear Interventions: Apply protective barrier, creams andemollients , Foam dressings/transparent film/skin sealantsProblem: Patient Education: Go t o Patient Education ActivityGoal: Patient/Family Education11/08/2018 1311 b y Grace Rivera, RNOutcome: Progressing Towards Goal11/08/2018 1241 by Susy Rivera RNOutcome: Progressing Towards GoalProblem: Falls - Risk ofGoal: *Absen ce of FallsDescriptionDocument Samra Fall Risk and appropriate interventions in th e flowsheet.11/08/2018 1311 by Grace Rivera RNOutcome: Progressing Towards GoalNo te:Fall Risk Interventions:Mobility Interventions: Strengthening exercises ( ROM-active/passive)Mentation Interventions: Room close to nurse's station, More freq uent roundingMedication Interventions: Evaluate medications/consider consulting pharmacyElimination Interventions: Toileting schedule/hourly rounds11/08/2018 1241 by Grace Rivera RNOutcome: Progressing Towards GoalNote:Fall Risk Interventions :Mobility Interventions: Strengthening exercises (ROM-active/passive)Mentation Interventions: Room close to nurse's station, More frequent roundingMedication Interve ntions: Evaluate medications/consider consulting pharmacyElimination Intervent ions: Toileting schedule/hourly roundsProblem: Patient Education: Go to Patient Education ActivityGoal: Patient/Family Education11/08/2018 1311 b Grace Reina RNOutcome: Progressing Towards Goal11/08/2018 1241 by Susy Rivera RNOutcome: Progressing Towards GoalProblem: Gas Exchange - ImpairedGoal : *Absence of hypoxiaOutcome: Progressing Towards GoalProblem: Patient Education: Go to Patient Education ActivityGoal: Patient/Family EducationOutcome: Progres sing Towards Goal Name Value Range Interpretation Code Description Data Harriett rce(s) Supporting Document(s ) ID Date Data Source [id number] 11/08/2018 12:42:26 PM EDT [facility] Problem: Pressure Injury - Risk ofGoal: *Prevention of pressure injuryDescriptionDocument Butch Scale a nd appropriate interventions in the flowsheet.Outcome: Progressing Towards G oalNote:Pressure Injury Interventions:Sensory Interventions: Turn and reposition appro x. every two hours (pillows andwedges if needed), Pressure redistribution bed/mat tress (bed type), Check visualcues for painMoisture Interventions: Contain woun d drainage, Apply protective barrier, creamsand emollients, Absorbent underpad sActivity Interventions: Pressure redistribution bed/mattress(bed type)Mob ility Interventions: Turn and reposition approx. every two hours(pillow andwedges ), Pressure redistribution bed/mattress (bed type)Nutrition Interventions: Discuss nu tritional consult with providerFriction and Shear Interventions: Apply protective ba rrier, creams andemollients, Foam dressings/transparent film/skin sealants Problem: Patient Education: Go to Patient Education ActivityGoal: Patient/Family E ducationOutcome: Progressing Towards GoalProblem: Falls - Risk ofGoal: *Absen ce of FallsDescriptionDocument Samra Fall Risk and appropriate interventions in e flowsheet.Outcome: Progressing Towards GoalNote:Fall Risk Interventions:Mobilit y Interventions: Strengthening exercises (ROM-active/passive)Mentation Interventi ons: Room close to nurse's station, More frequent roundingMedication Intervention s: Evaluate medications/consider consulting pharmacyElimination Interventions: Toile ting schedule/hourly roundsProblem: Patient Education: Go to Patient Education Activ ityGoal: Patient/Family EducationOutcome: Progressing Towards Goal Name Value Range Interpretation Code Description Data Harriett rce(s) Supporting Document(s ) ID Date Data Source [id number] 11/08/2018 12:18:30 PM EDT [facility] Infectious Disease ConsultToday's Date: 11/08/2018Admit Date: 11/07/2018Subjective:Date of Consultation: November 08, 2018Referring Physician: mili hillsPatient is a 68 y.o. male who is being seen for pnemonia Pt with hx of COPD, shcizophrenia, mental retardation, [place], Pulse ox was 84% RA, given IVste roid and beubulizer treatment and pt was placed on BiPAPIn ED Labs are notable fo r wbc of 6.6 with left shift, lactic acidof 4.1, TM was98.2 CXR suggestivbe of RLL PNA and bibasilar subsegmental atelectasis. 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 No pertinent family history.Social HistoryTobacco Use Smoki ng status: Never Smoker Smokeless tobacco: Never UsedSubstance Use Topics Alcohol use: NoHistory reviewed. No pertinent surgical history.Prior to Admission medi cationsMedication Sig Start Date End Date Taking? Authorizing Providermultivitamin (ONE A DAY) tablet Take 1 Tab by mouth daily. Yes Provider,Historicalclorazep ate (TRANXENE) 3.75 mg tablet Take by mouth nightly. Yes Provider,Historicalalbute rol-ipratropium (DUO-NEB) 2.5 mg-0.5 mg/3 ml nebu 3 mL by Nebulizationroute every six (6) hours as needed. Yes Provider, HistoricallamoTRIgine (LAMICTAL) 25 mg t ablet Take 50 mg by mouth two (2) times a day.Yes Provider, Historicalcinacalcet ( SENSIPAR) 30 mg tablet Take 60 mg by mouth daily. Yes Provider,Historicalvalproat e (DEPAKENE) 250 mg/5 mL syrup Take 750 mg by mouth two (2) times a day.Provider, Jazmine Thao Known AllergiesReview of [facility]: No fever, chills, malaise.Heent: No head ache, rhinorrhea, sinus pain, neck pain/stiffness, sore throat.Heart: No cp , palps, pnd, or orthopnea.Resp: + cough and + shortness of breath.GI: No n/v/d/c. No melena or hematochezia.: No dysuria or hematuria.Derm: No rash, skin lesion or pruritis.Musc/skeletal: no bone or joint complains.Vasc: No edema, cyanosis or cl audication.Endo: No heat/cold intolerance, no polyuria,polydipsia or polyphagia.Neuro: No weakness or paresthesias.Heme: No epistaxis, hematemesis, melena, hematoch eziaObjective:Visit VitalsBP 123/58 (BP 1 Location: Left arm, BP Patient Position: Lying right side)Pulse 73Temp 97.5 F (36.4 C)Resp 18Ht 5' 2" (1.575 m)Wt 60.8 kg (1 34 lb)SpO2 96%BMI 24.51 kg/m Temp (24hrs), Av.7 F (36.5 C), Min:97.5 F (36.4 C), Max:98.2 F (36.8 C)Lines: Peripheral IV site cleanPhysical Exam:General: Fuentes rt, on BIPAP currenatlyNeck: Supple, no adenopathy,Lungs: Ronchi BL, no rales. Heart: Regular rate and rhythm, S1, S2 normal, no murmur, click, rub or gallop. Abdomen: Soft, non-tender. Bowel sounds normal. No masses, No organomegaly.Back : Symmetric, no curvature. ROM normal. No CVA tenderness.Extremities: Extremities normal, atraumatic, contracted, no cyanosis or edema.Healed surgical scar left later al thighPulses: 2+ and symmetric all extremities.Skin: Skin color, texture, t urgor normal. No rashes or lesionsLymph nodes: Cervical, supraclavicular, and ax illary nodes normal.Neurologic: Moves all extremitesData Review:Labs:Recent Result s (from the past 24 hour(s))EKG, 12 LEAD, INITIAL Collection Time: 11/07/18 7:15 PMResult Value Ref Range Ventricular Rate 111 BPM Atrial Rate 111 BPM P-R Interval 156 ms QRS Duration 94 ms Q-T Interval 363 ms QTC Calculation (Bezet) 493 ms Calculate d P [place] 45 degrees Calculated R [place] 19 degrees Calculated T [place] 43 degrees Sammie gnosis Sinus tachycardiaInferior infarct, oldCULTURE, BLOOD Collection Time: 11/07 8:00 PMResult Value Ref Range Special Requests: NO SPECIAL REQUESTS Culture re sult: NO GROWTH AFTER 10 HOURSMETABOLIC PANEL, COMPREHENSIVE Collection Time: 8:10 PMResult Value Ref Range Sodium 139 136 - 145 mmol/L Potassium 4.1 3.5 - 5.1 mmol/L Chloride 95 (L) 98 - 107 mmol/L CO2 39 (H) 21 - 32 mmol/L Anion gap 10 1 0 - 20 mmol/L Glucose 122 (H) 74 - 106 mg/dL BUN 15 7 - 18 mg/dL Creatinine 0.71 0.70 - 1.30 mg/dL GFR est AA >60 >60 ml/min/1.73m2 GFR est non-AA >60 >60 ml/ min/1.73m2 Calcium 9.2 8.5 - 10.1 mg/dL Bilirubin, total 0.1 (L) 0.2 - 1.0 mg/dL ALT (SGPT) 13 13 - 61 U/L AST (SGOT) 15 15 - 37 U/L Alk. phosphatase 72 45 - 117 U/L Protein, total 7.4 6.4 - 8.2 g/dL Albumin 3.1 (L) 3.5 - 4.7 g/dL Globulin 4.3 1.7 - 4. 7 g/dL A-G Ratio 0.7 0.7 - 2.8CBC WITH AUTOMATED DIFF Collection Time: 11/07/18 8:10 PMResult Value Ref Range WBC 6.6 4.8 - 10.6 K/uL RBC 4.78 4.70 - 6.00 M/uL HGB 15.5 14.0 - 18.0 g/dL HCT 47.6 42.0 - 52.0 % MCV 99.6 (H) 81.0 - 94.0 FL MCH 32.4 27. 0 - 35.0 PG MCHC 32.6 30.7 - 37.3 g/dL RDW 13.4 11.5 - 14.0 % PLATELET 193 130 - 40 0 K/uL MPV 10.1 9.2 - 11.8 FL NEUTROPHILS 90 (H) 48.0 - 72.0 % LYMPHOCYTES 9 (L) 18.0 - 40.0 % MONOCYTES 1 (L) 2.0 - 12.0 % EOSINOPHILS 0 0.0 - 7.0 % BASOPHILS 0 0. 0 - 3.0 % ABS. NEUTROPHILS 5.9 1.5 - 6.6 K/UL ABS. LYMPHOCYTES 0.6 (L) 1.5 - 3.5 K/UL ABS. MONOCYTES 0.1 0.0 - 1.0 K/UL ABS. EOSINOPHILS 0.0 0.0 - 0.7 K/UL ABS. BASO PHILS 0.0 0.0 - 0.1 K/UL DF AUTOMATED IMMATURE GRANULOCYTES 1 0.0 - 2.0 %TROPO MARLEN I Collection Time: 11/07/18 8:10 PMResult Value Ref Range Troponin-I, Qt. <0.02 0.00 - 0.05 NG/MLMAGNESIUM Collection Time: 11/07/18 8:10 PMResult Value Ref Range Magnesium 1.6 1.6 - 2.6 mg/dLBNP Collection Time: 11/07/18 8:10 PMResult Value Ref Range BNP 41 0 - 100 pg/mLPROTHROMBIN TIME + INR Collection T jose alejandro: 11/07/18 8:10 PMResult Value Ref Range Prothrombin time 10.3 9.4 - 11.1 sec INR 1.0 0.8 - 1.2PTT Collection Time: 11/07/18 8:10 PMResult Value Ref Range aPTT 25.4 21.0 - 28.0 SECCULTURE, BLOOD Collection Time: 11/07/18 8:10 PMResult Value Ref Range Special Requests: NO SPECIAL REQUESTS Culture result: NO GROWTH AFTER 10 HOURS LACTIC ACID Collection Time: 11/07/18 8:10 PMResult Value Ref Range Lactic acid 2.5 (HH) 0.4 - 2.0 MMOL/LBLOOD GAS, ARTERIAL Collection Time: 11/07/18 9:23 PMResult Value Ref Range pH 7.41 7.35 - 7.45 PCO2 73 (HH) 32 - 48 mmHg PO2 77 (L) 83 - 108 mm Hg CO2, TOTAL 49 (H) 19 - 24 mmol/L BICARBONATE 46 (HH) 21 - 28 mmol/L O2 SA T 97 94 - 98 % BASE EXCESS 17.6 (H) 0 - 3 mmol/L SITE RIGHT RADIAL MIRANDA'S TEST PO SITIVE DEVICE NASAL O2 O2 FLOW 2 L/min Respiratory comment: CALLED TO AND READ BACK BY Performed by [id number] ACID Collection Time: 11/08/18 3:40 AMResult Value Ref Range Lactic acid 4.1 (HH) 0.4 - 2.0 MMOL/LCBC WITH AUTOMATED DIFF Collec tion Time: 11/08/18 7:20 AMResult Value Ref Range WBC 10.3 4.8 - 10.6 K/uL RBC 4.25 (L) 4.70 - 6.00 M/uL HGB 13.9 (L) 14.0 - 18.0 g/dL HCT 41.5 (L) 42.0 - 52.0 % MCV 97.6 (H) 81.0 - 94.0 FL MCH 32.7 27.0 - 35.0 PG MCHC 33.5 30.7 - 37.3 g/dL RDW 13.5 11.5 - 14.0 % PLATELET 195 130 - 400 K/uL MPV 9.6 9.2 - 11.8 FL NEUTROPHILS 88 (H) 48.0 - 72.0 % LYMPHOCYTES 10 (L) 18.0 - 40.0 % MONOCYTES 2 2.0 - 12.0 % EOSINOPHILS 0 0 .0 - 7.0 % BASOPHILS 0 0.0 - 3.0 % ABS. NEUTROPHILS 9.0 (H) 1.5 - 6.6 K/UL ABS. LYMPHOCYTES 1.1 (L) 1.5 - 3.5 K/UL ABS. MONOCYTES 0.2 0.0 - 1.0 K/UL ABS. EOSINO PHILS 0.0 0.0 - 0.7 K/UL ABS. BASOPHILS 0.0 0.0 - 0.1 K/UL DF AUTOMATED IMMATURE GRA NULOCYTES 0 0.0 - 2.0 %MAGNESIUM Collection Time: 11/08/18 7:20 AMResult Value Ref Range Magnesium 1.6 1.6 - 2.6 mg/dLTROPONIN I Collection Time: 11/08/18 7:20 AMResult Value Ref Range Troponin-I, Qt. <0.02 0.00 - 0.05 NG/MLLACTIC ACID Collection Time: 0 11/08/18 8:13 AMResult Value Ref Range Lactic acid 3.8 (HH) 0.4 - 2.0 MMOL/LTROPONIN I Collection Time: 11/08/18 8:14 AMResult Value Ref Range Troponin-I, Qt. <0.02 0. 00 - 0.05 NG/MLMicrobiology:Cultures:Lab ResultsComponent Value Date/Time Culture result: NO GROWTH AFTER 10 HOURS 11/07/2018 08:10 PM Culture result: NO GROWTH AFTER 10 HOURS 11/07/2018 08:00 PMImaging:Cta Chest W Or W Wo ContResult Date: 11/09/19 19Examination: CTA Chest ? PE angiography History: Hypoxia; rule out pneumoniavers us pulmonary embolism Priors: None Technique: Low-dose, multiplanar,helica l CTA chest was performed with bolus IV injection from lung apices tobases. 3D- reformatted images were obtained and reviewed on a dedicated viewingworkstation and di rectly supervised. Contrast: A total of 71 mL of Isovue-370was administered intravenou sly for this procedure. Findings: No evidence ofpulmonary embolism is seen. T here is decreased size of the right hemithorax fromchronic scarring and retr action with mediastinal shift left to right.Additional area of consolidation i s seen in the right lower lobe and suggestssuperimposed pneumonia with subs egmental atelectasis. Subsegmental atelectasisis also noted in the left jorge g base, with pleural parenchymal scarring. Lowlung volumes are seen. No pneumothora x seen. Aorta normal in caliber withoutaneurysm or dissection. Mediastin um no adenopathy. Mediastinal shift is seen inthe left and right as a result of chr onic changes in the right hemithorax.Heart shows no chamber enlargement or pericard ial effusion. No acute fracturesseen in the bony thorax, sternum, manubrium and rib cage. Multiple compressiondeformities are seen in the mid and lower thoracic spine , with superimposedspondyloarthropathy. Cannot exclude acute fracture.Impression : No evidence of pulmonary embolism Right lower lobe pneumoniasuggested. Incidenta l scarring and retraction in the right hemithorax fromremote/chronic inflammato ry disease and/or trauma. Bibasilar subsegmentalatelectasis. Report Electron ically Signed By: Pawel Zafar M.D. -11/08/2018 12:40 AMXr Chest PortResult D ate: 11/07/2018XR CHEST PORT CLINICAL INDICATION PROVIDED:. "sob." COMPARISON: . 09/26/2015.FINDINGS:. The pericardial/cardiac silhouette is enlarg ed in the transversedimension. There is no pulmonary vascular congestion or interst itial edema.Linear density in the left lung base and faint densities in the right mi d tolower lung likely represent atelectasis. There is no lobar consolidation oreffusi on. There is no pneumothorax.IMPRESSION:. Bilateral lower lung atelectasis. No donna dence of consolidation oreffusion.Impression: R/o sepspis Possible Nosocomial PNA C OPDPlan: continue IV ceftriaxone Continue Azithromycin Send for strep pneumo AG a nd urine legionalla ag Follow up BCxSigned By: Monica Gomez MD November 08, 2018 11:3 5 AM Name Value Range Interpretation Code Description Data Harriett rce(s) Supporting Document(s ) ID Date Data Source [id number] 11/09/2018 10:47:59 AM EDT [facility] Name Value Range Interpretation Description Data Sup porting Code Source(s) Document(s ) Legionella [facility] - pneumophila Ag Community [Presence] in Hospital Urine by Immunoassay PRESUMPTIVE NEGATIVE forL.pneumophila Se rogroup 1Antigen in urine,suggestingno recent or current infection.Infection due to Le gionellacannot be ruled out since otherserogroups and species may causedis ease,antigen may not bepresent in urine in earlyinfection, and the level ofantigen present in the urinemay be below the detectionlimit of the test. Service comment [facility] ID Date Data Source [id number] 11/09/2018 10:47:59 AM EDT [facility] Name Value Range Interpretation Description Data Sup porting Code Source(s) Document(s ) Legionella [facility] pneumophila [facility] [Presence] in Hospital Urine by Immunoassay PRESUMPTIVE NEGATIVE forL.pneumophila Se rogroup 1Antigen in urine,suggestingno recent or current infection.Infection due to Le gionellacannot be ruled out since otherserogroups and species may causedis ease,antigen may not bepresent in urine in earlyinfection, and the level ofantigen present in the urinemay be below the detectionlimit of the test. Service comment [facility] ID Date Data Source [id number] 11/08/2018 11:33:52 AM EDT [facility] Progress NoteDaily Progress Note: 019Subjective:Patient admitted for COPD (chronic obstructive pulmonary disease) (HCC) [J44.9]Seen and examinedOn BiPAPPul consultedOn ABx and steroid for PNARevie w of Systems:As per aboveObjective:VITALS:Visit VitalsBP 123 /58 (BP 1 Location: Left arm, BP Patient Position: Lying right side)Pulse 73Temp 97.5 F (36.4 C)Resp 18Ht 5' 2" (1.575 m)Wt 60.8 kg (134 lb)SpO2 96%BMI 24.51 kg/m T emp (24hrs), Av.7 F (36.5 C), Min:97.5 F (36.4 C), Max:98.2 F (36.8 C)PHYSICA L EXAM:Awake on BiPAPHEENT - normocephalic WNLLungs - scattered rhonchi to ausculta tion, symmetric chest wall motionCardio - S1S2 regular rate and rhythmAbdomen - So ft, NT and NDExtremities - No clubbing, cyanosis or edemaNeurology - no verbalIn take and Output:No intake or output data in the 24 hours ending 11/08/18 1130Data Re view:Recent Days:Recent Labs 11/08/1919WBC 10.3 6.6HGB 13.9* 15.5HC T 41.5* 47.6PLT 195 193Recent Labs 11/07/1920NA -- -- 139K -- -- 4.1CL -- -- 95*CO2 -- 49* 39*GLU -- -- 122*BUN -- -- 15CREA -- -- 0.71CA -- -- 9.2MG 1.6 -- 1.6ALB -- -- 3.1*TBIL I -- -- 0.1*SGOT -- -- 15ALT -- -- 13INR -- -- 1.0Recent Labs 27148BV 7.41PCO2 73*PO2 77*HCO3 46*Cta Chest W Or W Wo ContResult Date: 11/08/2018Exam ination: CTA Chest ? PE angiography History: Hypoxia; rule out pneumoniaversus pulmon connor embolism Priors: None Technique: Low-dose, multiplanar,helical CTA chest was performed with bolus IV injection from lung apices tobases. 3D-reformatted katja ges were obtained and reviewed on a dedicated viewingworkstation and directly supervis ed. Contrast: A total of 71 mL of Isovue-370was administered intravenously for this procedure. Findings: No evidence ofpulmonary embolism is seen. There is d ecreased size of the right hemithorax fromchronic scarring and retraction with mediastinal shift left to right.Additional area of consolidation is seen in the rig ht lower lobe and suggestssuperimposed pneumonia with subsegmental atelectasis. Subsegmental atelectasisis also noted in the left lung base, with pleural parench ymal scarring. Lowlung volumes are seen. No pneumothorax seen. Aorta normal in calib er withoutaneurysm or dissection. Mediastinum no adenopathy. Mediastinal shift is see n inthe left and right as a result of chronic changes in the right hemithorax. Heart shows no chamber enlargement or pericardial effusion. No acute fractures seen in the bony thorax, sternum, manubrium and rib cage. Multiple compressiondefor mities are seen in the mid and lower thoracic spine, with superimposedspondyloarthropa thy. Cannot exclude acute fracture.Impression: No evidence of pul monary embolism Right lower lobe pneumoniasuggested. Incidental scarring and retraction in the right hemithorax fromremote/chronic inflammatory disease and/or trauma. Bibasilar subsegmentalatelectasis. Report Electron ically Signed By: Pawel Zafar M.D. -11/08/2018 12:40 AMXr Chest PortResult D ate: 11/07/2018XR CHEST PORT CLINICAL INDICATION PROVIDED:. "sob." COMPARISON: . 09/26/2015.FINDINGS:. The pericardial/cardiac silhouette is enlarg ed in the transversedimension. There is no pulmonary vascular congestion or interst itial edema.Linear density in the left lung base and faint densities in the right mi d tolower lung likely represent atelectasis. There is no lobar consolidation oreffusi on. There is no pneumothorax.IMPRESSION:. Bilateral lower lung atelectasis. No donna dence of consolidation oreffusion.Problem List:Problem List as of 11/08/2018 Never Reviewed Codes Class Noted - Resolved COPD (chronic obstructive pulmonary dise ase) ([facility]) ICD-10-CM: J44.9ICD-9-CM: 496 11/08/2018 - Present Paraesophageal hiata l hernia ICD-10-CM: K44.9ICD-9-CM: 553.3 09/26/2015 - PresentMedications reviewedC urrent Facility-Administered MedicationsMedication Dose Route Frequen cy heparin (porcine) injection 5,000 Units 5,000 Units SubCUTAneous Q12H albuterol -ipratropium (DUO-NEB) 2.5 MG-0.5 MG/3 ML 3 mL Nebulization Q4H PRN methylPREDNISol one (PF) (SOLU-MEDROL) injection 40 mg 40 mg IntraVENous Q6H cinacalcet (SENSIPAR) t ablet 60 mg 60 mg Oral DAILY lamoTRIgine (LaMICtal) tablet 50 mg 50 mg Oral BID ALPRAZolam (XANAX) tablet 0.25 mg 0.25 mg Oral DAILY cefTRIAXone (ROCEPHIN) 1 g i n 0.9% sodium chloride (MBP/ADV) 50 mL MBP 1 gIntraVENous Q24H azithromycin (ZITHROM AX) 500 mg in 0.9% sodium chloride 250 mL IVPB 500 mgIntraVENous Q24H 0.45% sodi um chloride infusion 75 mL/hr IntraVENous CONTINUOUSAssessment/Plan:Acute hypoxic respt failure,PNAABxID and PUl consultedBiPAPSteroidDuonebDVT Prophylax is:[] Venodynes[] Lovenox[] Heparin[] No Lovenox or Heparin for risk of bleeding Loori Laurel Ross 201811:30 AM Name Value Range Interpretation Code Description Data Harriett rce(s) Supporting Document(s ) ID Date Data Source [id number] 11/08/2018 09:07:03 AM EDT [facility] Name Value Range Interpretation Description Data Sup porting Code Source(s) Document(s ) Troponin 0.00-0.05 [facility] in Serum or Plasma (NOTE)The presence of detectable troponi n above the reference rangeindicates myocardial injury which may be due to is chemia,myocarditis, trauma, etc. Clinical correlation is necessary todetermine the significance of this finding. Sequential testing isrecommended to determine if th e typical rise and fall of cTnI isdemonstrated. Note, cardiac troponin-I has a relatively longhalf-life and may be present well after the CK MB has returne d tobaseline. cTnI results in the indeterminate/enriquez zone for myocardial infarction: 0.06 to 0.59 ng/mL cTnI cutoff/range of values consistent with m yocardial infarction: 0.60 to 1.50 ng/mL ID Date Data Source [id number] 11/08/2018 09:07:03 AM EDT [facility] Name Value Range Interpretation Description Data Sup porting Code Source(s) Document(s ) Troponin 0.00-0.05 [facility] - [facility] ] in Serum or Plasma (NOTE)The presence of detectable troponi n above the reference rangeindicates myocardial injury which may be due to is chemia,myocarditis, trauma, etc. Clinical correlation is necessary todetermine the significance of this finding. Sequential testing isrecommended to determine if th e typical rise and fall of cTnI isdemonstrated. Note, cardiac troponin-I has a relatively longhalf-life and may be present well after the CK MB has returne d tobaseline. cTnI results in the indeterminate/enriquez zone for myocardial infarction: 0.06 to 0.59 ng/mL cTnI cutoff/range of values consistent with m yocardial infarction: 0.60 to 1.50 ng/mL ID Date Data Source [id number] 11/08/2018 09:28:28 AM EDT [facility] Name Value Range Interpretation Description Data Sup porting Code Source(s) Document(s ) Lactate 3.8 0.4-2.0 Above upper panic [facility] - [Moles/volu MMOL/L limits [facility]] in Hospital Serum or Plasma CALLED TO AND READ BACK FARNAZ ALAN RN 0928 11/08/18 BKENNEY ID Date Data Source [id number] 11/08/2018 09:28:28 AM EDT [facility] Name Value Range Interpretation Description Data Sup porting Code Source(s) Document(s ) Lactate 3.8 0.4-2.0 Above upper panic [facility] - Good [Moles/volu MMOL/L limits [facility]] in Hospital Serum or Plasma CALLED TO AND READ BACK FARNAZ LAAN RN 0928 11/08/18 BKENNEY ID Date Data Source [id number] 11/08/2018 07:40:38 AM EDT [facility] Bedside and Verbal shift change report carol Edwards RN (oncoming nurse) Diaz Keene RN (offgoing nurse). Report includ ed the following information SBAR, Kardex,Intake/Output, MAR and Recent Res ults. Name Value Range Interpretation Code Description Data Harriett rce(s) Supporting Document(s ) ID Date Data Source [id number] 11/08/2018 08:01:28 AM EDT [facility] Name Value Range Interpretation Description Data Sup porting Code Source(s) Document(s ) Troponin 0.00-0.05 [facility] - I.cardiac Community [Mass/volume Hospital ] in Serum or Plasma (NOTE)The presence of detectable troponi n above the reference rangeindicates myocardial injury which may be due to is chemia,myocarditis, trauma, etc. Clinical correlation is necessary todetermine the significance of this finding. Sequential testing isrecommended to determine if th e typical rise and fall of cTnI isdemonstrated. Note, cardiac troponin-I has a relatively longhalf-life and may be present well after the CK MB has returne d tobaseline. cTnI results in the indeterminate/enriquez zone for myocardial infarction: 0.06 to 0.59 ng/mL cTnI cutoff/range of values consistent with m yocardial infarction: 0.60 to 1.50 ng/mL ID Date Data Source [id number] 11/08/2018 08:01:28 AM EDT [facility] Name Value Range Interpretation Description Data Sup porting Code Source(s) Document(s ) Magnesium 1.6 mg/dL 1.6-2.6 [facility] - [Mass/volume] Community in Serum or Hospital Plasma ID Date Data Source [id number] 11/08/2018 07:43:01 AM EDT [facility] Name Value Range Interpretation Description Data Sup porting Code Source(s) Document(s ) Leukocytes 10.3 4.8-10.6 [facility] - [#/volume] in K/uL [facility] Blood by Hospital Automated count Erythrocytes 4.25 4.70-6.0 Below low normal [facility] - [#/volume] in M/uL 0 [facility] Blood by Hospital Automated count Hemoglobin 13.9 14.0-18. Below low normal [facility] - [Mass/volume] in g/dL 0 [facility] Blood Hospital Hematocrit 41.5 % 42.0-52. Below low normal [facility] - [Volume 0 Community Fraction] of Hospital Blood by Automated count Erythrocyte mean 97.6 FL 81.0-94. Above high normal [facility] - corpuscular 0 Community volume [Entitic Hospital volume] by Automated count Erythrocyte mean 32.7 PG 27.0-35. [facility] - corpuscular 0 [facility] [Entitic mass] by Automated count Erythrocyte mean 33.5 30.7-37. [facility] - corpuscular g/dL 3 [facility] concentration [Mass/volume] by Automated count Erythrocyte 13.5 % 11.5-14. [facility] - distribution 0 Community width [Ratio] by Hospital Automated count Platelets 195 K/uL 130-400 [facility] - [#/volume] in [facility] Blood by Hospital Automated count Platelet mean 9.6 FL 9.2-11.8 [facility] - volume [Entitic Community volume] in Blood Hospital by Automated count Segmented 88 % 48.0-72. Above high normal [facility] - neutrophils/100 0 Community leukocytes in Hospital Blood Lymphocytes/100 10 % 18.0-40. Below low normal [facility] - leukocytes in 0 [facility] Blood Hospital Monocytes/100 2 % 2.0-12.0 [facility] - leukocytes in [facility] Eosinophils/100 0 % 0.0-7.0 [facility] - leukocytes in [facility] Blood [facility] Basophils/100 0 % 0.0-3.0 [facility] - leukocytes in [facility] Segmented 9.0 K/UL 1.5-6.6 Above high normal [facility] - neutrophils Community [#/volume] in Hospital Blood Lymphocytes 1.1 K/UL 1.5-3.5 Below low normal [facility] - [#/volume] in [facility] Monocytes 0.2 K/UL 0.0-1.0 [facility] - [#/volume] in [facility] Eosinophils 0.0 K/UL 0.0-0.7 [facility] - [#/volume] in [facility] Basophils 0.0 K/UL 0.0-0.1 [facility] - [#/volume] in [facility] Differential [facility] - cell count [facility] Immature 0 % 0.0-2.0 [facility] - granulocytes/100 Community leukocytes in Hospital Blood by Automated count ID Date Data Source [id number] 11/08/2018 08:01:28 AM EDT [facility] Name Value Range Interpretation Description Data Sup porting Code Source(s) Document(s ) Magnesium 1.6 mg/dL 1.6-2.6 [facility] - Good [Mass/volume] Taoist in Serum or Hospital Plasma ID Date Data Source [id number] 11/08/2018 08:01:28 AM EDT [facility] Name Value Range Interpretation Description Data Sup porting Code Source(s) Document(s ) Troponin 0.00-0.05 [facility] - Good I.cardiac [facility]ist [Mass/volume Hospital ] in Serum or Plasma (NOTE)The presence of detectable troponi n above the reference rangeindicates myocardial injury which may be due to is chemia,myocarditis, trauma, etc. Clinical correlation is necessary todetermine the significance of this finding. Sequential testing isrecommended to determine if th e typical rise and fall of cTnI isdemonstrated. Note, cardiac troponin-I has a relatively longhalf-life and may be present well after the CK MB has returne d tobaseline. cTnI results in the indeterminate/enriquez zone for myocardial infarction: 0.06 to 0.59 ng/mL cTnI cutoff/range of values consistent with m yocardial infarction: 0.60 to 1.50 ng/mL ID Date Data Source [id number] 11/08/2018 07:43:01 AM EDT [facility] Name Value Range Interpretation Description Data Sup porting Code Source(s) Document(s ) Leukocytes 10.3 4.8-10.6 [facility] - [#/volume] in K/uL Good Blood by [facility] Erythrocytes 4.25 4.70-6.0 Below low normal [facility] - [#/volume] in M/uL 0 Good Blood by [facility] Hemoglobin 13.9 14.0-18. Below low normal [facility] - [Mass/volume] in g/dL 0 Good Blood [facility] Hematocrit 41.5 % 42.0-52. Below low normal [facility] - [Volume 0 Good Fraction] of Taoist Blood by Hospital Automated count Erythrocyte mean 97.6 FL 81.0-94. Above high normal [facility] - corpuscular 0 Good volume [Entitic Taoist volume] by Hospital Automated count Erythrocyte mean 32.7 PG 27.0-35. [facility] - corpuscular 0 Good hemoglobin Taoist [Entitic mass] Hospital by Automated count Erythrocyte mean 33.5 30.7-37. [facility] - corpuscular g/dL 3 [facility] hemoglobin [facility] Hospital [Mass/volume] by Automated count Erythrocyte 13.5 % 11.5-14. [facility] - distribution 0 Good width [Ratio] by Taoist Automated count Hospital Platelets 195 K/uL 130-400 [facility] - [#/volume] in [facility] Blood by Taoist Automated count Hospital Platelet mean 9.6 FL 9.2-11.8 [facility] - volume [Entitic Good volume] in Blood Taoist by Automated Hospital count Segmented 88 % 48.0-72. Above high normal [facility] - neutrophils/100 0 [facility] leukocytes in [facility] Lymphocytes/100 10 % 18.0-40. Below low normal [facility] - leukocytes in 0 [facility] Monocytes/100 2 % 2.0-12.0 [facility] - leukocytes in [facility] Eosinophils/100 0 % 0.0-7.0 [facility] - leukocytes in [facility] Basophils/100 0 % 0.0-3.0 [facility] - leukocytes in [facility] Segmented 9.0 K/UL 1.5-6.6 Above high normal [facility] - neutrophils Good [#/volume] in [facility] Lymphocytes 1.1 K/UL 1.5-3.5 Below low normal [facility] - [#/volume] in [facility] Monocytes 0.2 K/UL 0.0-1.0 [facility] - [#/volume] in [facility] Eosinophils 0.0 K/UL 0.0-0.7 [facility] - [#/volume] in [facility] Basophils 0.0 K/UL 0.0-0.1 [facility] - [#/volume] in [facility] Differential [facility] - cell count Good method [facility] Immature 0 % 0.0-2.0 [facility] - granulocytes/100 Good leukocytes in [facility] Hospital Automated count ID Date Data Source [id number] 11/08/2018 05:07:03 AM EDT [facility] [id number] [facility] [address] [place] [address] [phone]/ GabeEvelio (Male) [id number] I 2 ED Dispo:ADMIT Chief Complaint: Shortness of Breath Diagnosis: Acute exacerbation of chronic obstructive pulmonary disease ([employer]INE [employer] D) (HCC) [] Community acquired pneumonia of right lower lobe of lung (H CC) [] Current Providers: Attending: Meghna Powell S Consulting Provider: Eloisa Hills Primary Nurse: Nicole Lang Tech: MIKE LouN: [id number] [phone] [employer] [phone] - Bsi Ed Medva MrnMRN: [id number] [employer] [phone] - Bs hsi Ed Medva Age SexDOB 1950 AGE 68 SEX Male Primary Care Provider: Mili Hills DO Phone: [phone]: (No Known Allergies)Date Reviewed: 11/07/2018Reviewed by: Rashaun Albrecht RN - Review CompleteED Provider Notes: No notes of this type exist for this encounter.ED Orders CLORAZEPATE DIPOTASSIUM 3.75 MG TAB [#[id number]] Priority: Routine Class: Historical Med IPRATROPIUM-ALBUTEROL 2.5 MG-0.5 MG/* [#[id number]] Priority: STAT Class: Normal MODE OF DELIVERY -> N ebulizer METHYLPREDNISOLONE (PF) 125 MG/2 ML * [#[id number]] Priority: STAT Class: Normal CEFTRIAXONE 1 GRAM IVPB MBP [#[id number]] Priority: STAT Class: Normal Antibiotic Indicatio ns -> Pneumonia (CAP) AZITHROMYCIN 500 MG IN NS 250 ML [#[id number]] Priority: STAT Class: N ormal Antibiotic Indications -> Pneumonia (CAP) IOPAMIDOL 76 % IV SOLN [# [id number]] Priority: STAT Class: Normal HEPARIN (PORCINE) 5,000 UNIT/ML IJ S* [#[id number]] Priority: STAT Class: Normal IPRATROPIUM-ALBUTEROL 2.5 MG-0.5 MG/* [#[id number]] Priority : STAT Class: Normal MODE OF DELIVERY -> Nebulizer METHYLPREDNISOLONE (PF) 40 MG/ML IJ * [# [id number]] Priority: STAT Class: Normal SODIUM CHLORIDE 0.9% BOLUS IV [#[id number]] Pr iority: STAT Class: Normal CINACALCET 30 MG TAB [#[id number]] Priority: STAT Cla ss: Normal LAMOTRIGINE 25 MG TAB [#[id number]] Priority: STAT Class: N ormal ALPRAZOLAM 0.25 MG TAB [#[id number]] Priority: STAT Class: Normal [id number] PHARMACY SALES REPRESENTATIVE - ED ONLY [#[id number]] Priority: STAT Class: Hospital Performed Standing Or bassem Information Remaining Occurrences:0/1 Interval:Continuous Last released :11/07/2018 Released orders: SatNov 07, 2018 7:27 PM by: LISA POWELL Type: -> Bedsid e [id number] PULSE OXIMETRY CONTINUOUS [#[id number]] Priority: STAT Class: Hospital Performe d Standing Order Information Remaining Occurrences:0/1 Interval:CONTINUOUS Last release d:11/07/2018 Released orders: SatNov 07, 2018 7:27 PM by: LISA POWELL [id number] PULSE OXIM ETRY SPOT CHECK [#[id number]] Priority: STAT Class: Hospital Performed Standing Order Inf ormation Remaining Occurrences:0/1 Interval:ONE TIME Last released:11/07/2018 Release d orders: SatNov 07, 2018 7:27 PM by: LISA POWELL [id number] OBTAIN OLD EKG [#[id number]] Priority: Routine Class: Hospital Performed Standing Order Information Remainin g Occurrences:0/1 Interval:ONE TIME Last released:11/07/2018 Released orders : SatNov 07, 2018 7:27 PM by: LISA POWELL [id number] PHARMACY SALES REPRESENTATIVE - ED ONLY [# [id number]] Priority: STAT Class: Hospital Performed Type: -> Bedside Released on: 11/07/2018 7:27 PM [id number] PULSE OXIMETRY CONTINUOUS [#[id number]] Priority: STAT Class: Hospital Performe d Released on: 11/07/2018 7:27 PM [id number] PULSE OXIMETRY SPOT CHECK [#[id number]] Priori ty: STAT Class: Hospital Performed Released on: 11/07/2018 7:27 PM [id number] OBTAIN OLD EKG [#[id number]] Priority: STAT Class: Hospital Performed Released on: 11/07/2018 7:27 PM [id number] VITAL SIGNS PER UNIT ROUTINE [#[id number]] Priority: STAT Class: Hospital Performed Stand ing Order Information Remaining Occurrences:0/1 Interval:CONTINUOUS Last released :11/08/2018 Released orders: Sat Nov 08, 2018 3:13 AM by: POLO MOLINA Comment:More freque ntly if Indicated. [id number] AMBULATE WITH ASSISTANCE [#[id number]] Priority: STAT Class: H ospital Performed Standing Order Information Remaining Occurrences:0/1 Interval:EVERY 8 HOURS Last released:11/08/2018 Released orders: [facility] Nov 08, 2018 3:13 AM by: POLO MOLINA [id number] APPLY/MAINTAIN SEQUENTIAL COMPRESSIO* [#[id number]] Priority: STAT Class: Hospital Performe d Standing Order Information Remaining Occurrences:0/1 Interval:CONTINUOUS Last release d:11/08/2018 Released orders: Sat Nov 08, 2018 3:13 AM by: POLO MOLINA [id number] VITAL SIGNS PER UNIT ROUTINE [#[id number]] Priority: STAT Class: Hospital Performed Comment:More frequ ently if Indicated. Released on: 11/08/2018 3:13 AM [id number] AMBULATE WITH ASSISTANCE [# [id number]] Priority: STAT Class: Hospital Performed Released on: 11/08/2018 3:13 AM [id number] APPLY/ MAINTAIN SEQUENTIAL COMPRESSIO* [#[id number]] Priority: STAT Class: Hospital Performed Released on: 11/08 3:13 AM [id number] RT--OXYGEN CANNULA [#[id number]] Priority: STAT Class: H ospital Performed Standing Order Information Remaining Occurrences:0/1 Interval:CONTIN UOUS Last released:11/07/2018 Released orders: SatNov 07, 2018 7:27 PM by: CED POWELL LPM -> 2 Indications for O2? -> CHEST PAIN [id number] RT--OXYGEN CANNULA [# [id number]] Priority: STAT Class: Hospital Performed LPM -> 2 Indications for O2? -> CHEST PAIN Released on: 11/07/2018 7:27 PM [id number] DIET NPO [#[id number]] Priority: STA T Class: Hospital Performed Standing Order Information Remaining Occurrences:0/1 Inter seema:DIET EFFECTIVE NOW Last released:11/07/2018 Released orders: SatNov 07, 2018 7:27 PM by: LISA POWELL NPO options: -> With Meds [id number] DIET NPO [#[id number]] Priority: STAT Class: Hospital Performed NPO options: -> With Meds Released on: 11/07/2018 7:27 PM [id number] SALINE LOCK IV [#[id number]] Priority: STAT Class: Hospital Perfor med Standing Order Information Remaining Occurrences:0/1 Interval:ONE TIME Last release d:11/07/2018 Released orders: SatNov 07, 2018 7:27 PM by: LISA POWELL [id number] SALINE LOC K IV [#[id number]] Priority: STAT Class: Hospital Performed Released on: 11/07 7:27 PM [id number] METABOLIC PANEL, COMPREHENSIVE [#[id number]] Priority: STAT Class: E R Collect Standing Order Information Remaining Occurrences:0/1 Interval:ONE TIME Last r eleased:11/07/2018 Released orders: SatNov 07, 2018 7:27 PM by: LISA POWELL [id number] CBC WITH AUTOMATED DIFF [#[id number]] Priority: STAT Class: ER Collect Standing Order Info rmation Remaining Occurrences:0/1 Interval:ONE TIME Last released:11/07/2018 Released orders: SatNov 07, 2018 7:27 PM by: LISA POWELL [id number] TROPONIN I [#[id number]] Priority: STAT Class: ER Collect Standing Order Information Remaining Occurre nces:0/1 Interval:ONE TIME Last released:11/07/2018 Released orders: SatNov 07 7:27 PM by: LISA POWELL [id number] MAGNESIUM [#[id number]] Priority: ST AT Class: ER Collect Standing Order Information Remaining Occurrences:0/1 Interval:ONE TI ME Last released:11/07/2018 Released orders: SatNov 07, 2018 7:27 PM by: CED POWELL [id number] BNP [#[id number]] Priority: STAT Class: ER Collect Sta nding Order Information Remaining Occurrences:0/1 Interval:ONE TIME Last released:0 11/07/2018 Released orders: SatNov 07, 2018 7:27 PM by: LISA POWELL [id number] PROTHROMBI N TIME + INR [#[id number]] Priority: STAT Class: ER Collect Standing Order Information Remaining Occurrences:0/1 Interval:ONE TIME Last released:11/07/2018 Released orders : SatNov 07, 2018 7:27 PM by: LISA POWELL [id number] PTT [# [id number]] Priority: STAT Class: ER Collect Specimen Source: Blood Standing Order Information Remaining Occurrences:0/1 Interval:ONE TIME Last released:11/07/2018 Released orders : SatNov 07, 2018 7:27 PM by: LISA POWELL [id number] LACTIC ACID [# [id number]] Priority: STAT Class: ER Collect Standing Order Information Remaining Occurrences:0 /2 Interval:NOW THEN EVERY 4 HOURS Last released:11/07/2018 Released orders : SatNov 07, 2018 11:01 PM by: LISA POWELL SatNov 07, 2018 7:27 PM by: CED POWELL [id number] URINALYSIS W/ RFLX MICROSCOPIC [#[id number]] Priority: STAT Class: ER Collect Sta nding Order Information Remaining Occurrences:0/1 Interval:ONE TIME Last released:0 11/07/2018 Released orders: SatNov 07, 2018 7:27 PM by: LISA POWELL [id number] METABOLIC PANEL, COMPREHENSIVE [#[id number]] Priority: STAT Class: ER Collect Specimen Source: Plasma Specim en Collected: 11/07/2018 8:10 PM Resulting Agency: [facility] Test ID: MPL Rel eased on: 11/07/2018 7:27 PM [id number] CBC WITH AUTOMATED DIFF [#[id number]] Priority: STAT C lass: ER Collect Specimen Source: Whole Blood Specimen Collected: 11/07/2018 8:10 PM Resulting Agency: [facility] Test ID: CBCA Released on: 11/07/2018 7:27 PM [id number] TROPONIN I [#[id number]] Priority: STAT Class: ER Collect Specimen Source: Plasma Specim en Collected: 11/07/2018 8:10 PM Resulting Agency: [facility] Test ID: TROIP R eleased on: 11/07/2018 7:27 PM [id number] MAGNESIUM [#[id number]] Priority: STAT Class: ER Collect Specimen Source: Plasma Specimen Collected: 11/07/2018 8:10 PM Resulting Agency: [facility] Test ID: MGPL Released on: 11/07/2018 7:27 PM [id number] BNP [#[id number]] Priority: STAT Class: ER Collect Specimen Source: Plasma Specim en Collected: 11/07/2018 8:10 PM Resulting Agency: [facility] Test ID: BNPPB R eleased on: 11/07/2018 7:27 PM [id number] PROTHROMBIN TIME + INR [#[id number]] Priority: STAT Class: ER Collect Specimen Source: Plasma Specimen Collected: 11/07/2018 8:10 PM Resulting Agency: [facility] Test ID: APTHR Released on: 11/07/2018 7:27 PM [id number] PTT [#[id number]] Priority: STAT Class: ER Collect Specimen Source: Plasma Specim en Collected: 11/07/2018 8:10 PM Resulting Agency: [facility] Test ID: APTT Re leased on: 11/07/2018 7:27 PM [id number] LACTIC ACID [#[id number]] Priority: STAT Class: ER Collect Specimen Source: Plasma Specimen Collected: 11/07/2018 8:10 PM Resulting Agency: [facility] Test ID: LAC Released on: 11/07/2018 7:27 PM [id number] URINALYSIS W/ RFLX MICROSCOPIC [#[id number]] Priority: STAT Class: ER Collect Resulting Agency: [facility] Test ID: UA Released on: 11/07/2018 7:27 PM [id number] BLOOD GAS, ARTERIAL [#[id number]] Priority: STAT Class: ER Collect Standing Order Information Remaining Occurre nces:0/1 Interval:ONE TIME Last released:11/07/2018 Released orders: SatNov 07 8:18 PM by: LISA POWELL [id number] BLOOD GAS, ARTERIAL [#[id number]] Priority: ST AT Class: ER Collect Released on: 11/07/2018 8:18 PM [id number] BLOOD GAS, ARTERIAL [# [id number]] Priority: Routine Class: ER Collect Resulting Agency: [facility] Test ID: ABGG1 Standing Order Information Remaining Occurrences:0/1 Released orders: SatNov 07, 2018 9:23 PM by: Automatic Batch Process [id number] BLOOD GAS, ARTERIAL [#[id number]] Priority: Routine Class: ER Collect Specimen Source: Arterial Blood Specimen Collect ed: 11/07/2018 9:23 PM Resulting Agency: [facility] Test ID: ABGG1 Released o n: 11/07/2018 9:23 PM [id number] LACTIC ACID [#[id number]] Canceled Priority: STAT Class: ER Collect Specimen Collected: 11/08/2018 2:30 AM Resulting Agency: [facility] Test ID: LAC Canceled by SOHAIL OLIVO IN [employer] on Sat Nov 08, 2018 3:30 AM Reason: O ther Comment: GROSSLY HEMOLYZED. NOTFIED JAMIL RN/ED 0329 11/08/18 Released on: 11/07/2018 11:01 PM [id number] CBC WITH AUTOMATED DIFF [#[id number]] Priority: Routine Class: ER Collect Standing Order Information Remaining Occurrences:2/3 Interval:DAILY Last released:10/14 Released orders: SatNov 08, 2018 3:13 AM by: POLO MOLINA [id number] METABOLIC PANEL, COMPREHENSIVE [#[id number]] Priority: Routine Class: ER Collect Standing Order Information Remaining Occurrences:3/3 Interval:DAILY [id number] PROTHROMBIN TIME + INR [# [id number]] Priority: Routine Class: ER Collect Standing Order Information Remaining Occurrences:1 / Interval:TOMORROW AM [id number] MAGNESIUM [#[id number]] Priority: Rout ine Class: ER Collect Standing Order Information Remaining Occurrences:1/3 Interval:DAILY Last released:11/08/2018 Released orders: [facility] Nov 08, 2018 3:13 AM by: POLO MOLINA [facility] Nov 08, 2018 3:13 AM by: POLO MOLINA [id number] TROPONIN I [# [id number]] Priority: Timed Class: ER Collect Standing Order Information Remaining Occurrences:2 /3 Interval:EVERY 6 HRS Last released:11/08/2018 Released orders: [facility] Nov 08, 2018 3:13 AM by: POLO MOLINA [id number] CBC WITH AUTOMATED DIFF [#[id number]] Priority: Routin e Class: ER Collect Resulting Agency: [facility] Test ID: CBCA Released on : 11/08/2018 3:13 AM [id number] MAGNESIUM [#[id number]] Priority: Routine Class : ER Collect Resulting Agency: [facility] Test ID: MGPL Released on: 11/08/2018 3:13 AM [id number] MAGNESIUM [#[id number]] Canceled Priority: Routine Class: ER Collect Specimen Collected: 11/08/2018 4:00 AM Resulting Agency: [facility] Test ID: MGPL Canceled by SOHAIL OLIVO IN [employer] on [facility] Nov 08, 2018 3:14 AM Reason: Other Comment: Duplicate Released on: 11/08/2018 3:13 AM [id number] TROPONIN I [#[id number]] Priority: Timed Class: ER Collect Resulting Agency: [facility] Test ID: TROIP Released on: 11/08/2018 3:13 AM [id number] LACTIC ACID [#[id number]] Prior ity: STAT Class: ER Collect Standing Order Information Remaining Occurrences:0/1 Inter seema:ONE TIME Last released:11/08/2018 Released orders: [facility] Nov 08, 2018 3:35 AM by: JAMIL HUNTER [id number] LACTIC ACID [#[id number]] Priority: STAT Class: E R Collect Specimen Source: Plasma Specimen Collected: 11/08/2018 3:40 AM Resulting Agency: [facility] Test ID: LAC Released on: 11/08/2018 3:35 AM [id number] EKG, 12 LEAD, INITIAL [#[id number]] Priority: STAT Class: Hospital Performed Standing Order Information Remaini ng Occurrences:0/1 Interval:ONE TIME Last released:11/07/2018 Released orders : SatNov 07, 2018 7:27 PM by: LISA POWELL Reason for Exam: -> sob [id number] EKG, 12 LEAD, INITIAL [#[id number]] Priority: STAT Class: Hospital Performed Specimen Collected : 11/07/2018 7:15 PM Resulting Agency: [facility] Test ID: [id number] Reason for Exam: -> sob Released on : 11/07/2018 7:27 PM [id number] XR CHEST PORT [#[id number]] Priority: STAT Class: H ospital Performed Standing Order Information Remaining Occurrences:0/1 Interval:ONE TI ME Last released:11/07/2018 Released orders: SatNov 07, 2018 7:27 PM by: CED POWELL Reason for Exam -> sob [id number] XR CHEST PORT [#[id number]] Priority: STAT Class: Hospital Performed Specimen Collected: 11/07/2018 8:08 PM Resulting Agency: [facility] Test I D: [id number] Reason for Exam -> sob Released on: 11/07/2018 7:27 PM [id number] CTA CHEST W OR W WO CO NT [#[id number]] Priority: STAT Class: Hospital Performed Standing Order Information Remaining Occurrences:0/1 Interval:ONE TIME Last released:11/07/2018 Released orders : SatNov 07, 2018 10:02 PM by: LISA POWELL [id number] CTA CHEST W OR W WO CONT [# [id number]] Priority: STAT Class: Hospital Performed Specimen Collected: 11/08/2018 12:31 AM Resultin g Agency: [facility] Test ID: [id number] Released on: 11/07/2018 10:02 PM [id number] CULTURE, BLOOD [#[id number]] Priority: STAT Class: ER Collect Specimen Source: Blood Standing Order Information Remaining Occurrences:0/1 Interval:ONE TIME Last released:11/07/2018 Rel eased orders: SatNov 07, 2018 7:27 PM by: LISA POWELL [id number] CULTURE, BLOOD [#[id number]] Priority: STAT Class: ER Collect Specimen Source: Blood Standing Order Informat ion Remaining Occurrences:0/1 Interval:ONE TIME Last released:11/07/2018 Released o rders: SatNov 07, 2018 7:27 PM by: LISA POWELL [id number] CULTURE, URINE [#[id number]] Priority: STAT Class: ER Collect Specimen Source: Clean catch Standing Order In formation Remaining Occurrences:0/1 Interval:ONE TIME Last released:11/07/2018 Releas ed orders: SatNov 07, 2018 7:27 PM by: LISA POWELL Reason for Culture -> Other [id number] C ULTURE, BLOOD [#[id number]] Priority: STAT Class: ER Collect Specimen Source: Bloo d Specimen Collected: 11/07/2018 8:10 PM Resulting Agency: [facility] Test ID: HBCS Released on: 11/07/2018 7:27 PM [id number] CULTURE, BLOOD [#[id number]] Priori ty: STAT Class: ER Collect Specimen Source: Blood Specimen Collected: 11/07/2018 8:00 PM Resultin g Agency: [facility] Test ID: HBCS Released on: 11/07/2018 7:27 PM [id number] CULTURE, URINE [#[id number]] Priority: STAT Class: ER Collect Specimen Source : Clean catch Resulting Agency: [facility] Test ID: CAPTAIN FISHING VESSEL Reason for Culture -> Other Released on: 11/07/2018 7:27 PM [id number] IP CONSULT TO PRIMARY CARE PROVIDER [#[id number]] Priority: STAT Class: Hospital Performed Standing Order Information Remaining Occurrences:0 /1 Interval:ONE TIME Last released:11/07/2018 Released orders: SatNov 07, 2018 10:24 PM by: LISA POWELL Reason for Consult: -> SOB Did you call or speak to the consulting provider? -> No Consult To -> Reinier Schedule When? -> TODAY [id number] IP CONSULT TO PRIMARY CARE PRO VIDER [#[id number]] Priority: STAT Class: Hospital Performed Comment:dr powell spoke to dr hills Reason for Consult: -> SOB Did you call or speak to the consulting provider? -> No Consult To -> Reinier Schedule When? -> TODAY Released on: 11/07/2018 10:24 PM [id number] INITIAL PHYSICIAN ORD ER: OBSERVATION* [#[id number]] Priority: Routine Class: ADT Pend Transfer Standing Order Information Remaining Occurrences:0/1 Interval:ONE TIME Last released:11/08/2018 Released orders : Sat Nov 08, 2018 3:13 AM by: POLO MOLINA Patient Class: -> OBSERVATION Admitting Sammie gnosis -> COPD (chronic obstructive pulmonary disease) ([facility]) Admitting Physician -> POLO MOLINA Attending Physician -> POLO MOLINA [id number] INITIAL PHYSICIAN ORDER: OBSERVATION* [#[id number]] Prio rity: Routine Class: ADT Pend Transfer Patient Class: -> OBSERVATION Admitting Diagnosis -> COPD (chronic obstructive pulmonary disease) ([facility]) Admitting Physician -> POLO MOLINA g Physician -> POLO MOLINA Released on: 11/08/2018 3:13 AM COD2 FULL CODE [#[id number]] Priority: STAT Class: Hospital Performed Standing Order Information Josie medina Occurrences:0/1 Interval:CONTINUOUS Last released:11/08/2018 Released orders : Sat Nov 08, 2018 3:13 AM by: POLO MOLINA COD2 FULL CODE [#[id number]] Priority: STAT Class: Hospital Performed Released on: 11/08/2018 3:13 Chivo Evelio MR#: [id number] * Rm: [id number]: Wt: Code: Full Code Is o:Diagnosis:COPD (chronic obstructive pulmonary disease) ([facility]) [J44.9]Allergies: No Known Allergies -------- Current as of: 11/08/18 0507 GI=Given IC=IV Complet ed NB=New Bag --albuterol-ipratropium (DUO-NEB) 2.5 MG-0.5 MG/3 ML #[id number] Admin Amount: 3 mL Ordered Dose: 3 mL Route: Nebulization Freq: NOW Start Date: 11/07/18 Administration times (back 96 hours, ahead 96 hours): 11/07/18: 2099GI -----methylPREDNISolone (PF) (Solu-MEDROL) injection 125 mg #[id number] Admin Amount: 2 mL = 125 mg of 125 mg/2 mL Ordered Dose: 125 mg Route: Int raVENous Freq: NOW Start Date: 11/07/18 Administration times (back 96 hours, ahe ad 96 hours): 11/07/18: 2199GI -----cefTRIAXone (ROCEPHIN) 1 g in 0.9% sodium chloride (MBP/ADV) 50 m L M*#[id number] Admin Amount: 1 g Ordered Dose: 1 g Route: IntraVENous Freq: NOW Start Date: 11/07/18 Rate: 100 mL/hr Duration: 30 Minutes Administration patria es (back 96 hours, ahead 96 hours): 11/07/18: 2232NB 2306IC -----azithromycin (ZITHROMAX) 500 mg in NS 250 mL #[id number] Admin Amount: 250 mL = 500 mg of 500 mg/250 mL Ordered Dose: 500 mg Ro manzanita: IntraVENous Freq: NOW Start Date: 11/07/18 Rate: 250 mL/hr Dura tion: 60 Minutes Administration times (back 96 hours, ahead 96 hours): 11/07/18: 2232GI -----iopamidol (ISOVUE-370) 76 % injection 100 mL #[id number] Admin Amount: 100 mL Ordered Dose: 100 mL Route: IntraVENous Freq: RAD ONCE Start Date: 11/07/18 Administration times (back 96 hours, ahead 96 hours): 11/08/18: 0015GI -----heparin (porcine) injection 5,000 Units #[id number] Admin Amount: 1 mL = 5,000 Units of 5,000 Units/mL Ordered Dose: 5,000 Units Route: SubCUTAneous Freq: EVERY 12 HOURS Start Date: 11/08/18 Administration times (main k 96 hours, ahead 96 hours): 11/08/18: 313 1514 11/09/18: 313 15111/10/18: 31311/11/18: 31311/12/18: 0314Gabe Evelio MR#: [id number] * Rm: [phone] t: Wt: Code: Full Code Iso:Diagnosis:COPD (chronic obstructive pulmonary disease) ([facility]) [J44.9]Allergies: No Known Allergies -------- Current as of: 11/08/18 0507 GI=Given IC=IV Complet ed NB=New Bag --albuterol-ipratropium (DUO-NEB) 2.5 MG-0.5 MG/3 ML #[id number] Admin Amount: 3 mL Ordered Dose: 3 mL Route: Nebulization Freq: EVERY 4 HOURS NEEDED Start Date: 11/08/18 No administration times (back 96 hours, ahead 96 hours). ------methylPREDNISolone (PF) (SOLU-MEDROL) injection 40 mg #[id number] Admin Amount: 1 mL = 40 mg of 40 mg/mL Ordered Dose: 40 mg Route: IntraVENo us Freq: EVERY 6 HOURS Start Date: 11/08/18 Administration times (back 96 hours, ahe ad 96 hours): 11/08/18: 599 1199 1800 11/09/18: 599 1200 179911/10/18: 599 1200 1800 11/11/18: 599 1200 1800 11/12/18: 0000 ---sodium chloride 0.9 % bolus infusion 500 mL #[id number] Admin Amount: 500 mL Ordered Dose: 500 mL Route: IntraVENous Freq: ONCE Start Date: 11/08/18 Rate: 666.7 mL/hr Duration: 45 Minutes Administration patria es (back 96 hours, ahead 96 hours): 11/08/18: 0436NB -----cinacalcet (SENSIPAR) tablet 60 mg #[id number] Admin Amount: 2 Tab (2 x 30 mg Tab) Ordered Dose: 60 mg Route: Oral Dg q: DAILY Start Date: 11/08/18 Administration times (back 96 hours, ahead 96 hours): 11/08/18: 0900 11/09/18: 0911/10/18: 0911/11/18: 0900 ---lamoTRIgine (LaMICtal) tablet 50 mg #[id number] Admin Amount: 2 Tab (2 x 25 mg Tab) Ordered Dose: 50 mg Route: Oral Dg q: 2 TIMES DAILY Start Date: 11/08/18 Administration times (back 96 hours, ahead 96 hours): 11/08/18: 899 1800 11/09/18: 09 1800 11/10/18: 09 1800 11/11/18: 899 1800Gabe Reyes cristina MR#: [id number] * Rm: [phone]: Wt: Code: Full Code Iso:Diagnosis:COPD (chronic obstructive pulmonary disease) ([facility]) [J44.9]Allergies: No Known Allergies -------- Current as of: 11/08/18 0507 GI=Given IC=IV Complet ed NB=New Bag --ALPRAZolam (XANAX) tablet 0.25 mg #[id number] Admin Amount: 1 Tab (1 x 0.25 mg Tab) Ordered Dose: 0.25 mg Route: Oral Dg q: DAILY Start Date: 11/08/18 Administration times (back 96 hours, ahead 96 hours): 11/08/18: 0900 11/09/18: 0911/10/18: 0900 11/11/18: 0900 ED Current OP Medicati onsclorazepate (TRANXENE) 3.75 mg tabletSig:Take 3.75 mg by mouth.Dispense Amount:Start Date:End Pan e:Doc. Provider: Other, Phys, MDalbuterol-ipratropium (DUO-NEB) 2.5 mg-0.5 mg/3 ml nebuSi mL by Nebulizat ion route every six (6) hours.Dispense Amount:Start Date:End Date:Doc. Provider: Provider, HistoricalOTHERSig:T radhames by mouth daily. multivitaminDispense Amount:Start Date:End Date:Doc. Provider: Provider, Historical lamoTRIgine (LAMICTAL) 25 mg tabletSig:Take 50 mg by mouth two (2) times a day.Dispense Amount:Start Date:E nd Date:Doc. Provider: Provider, Historicalcinacalcet (SENSIPAR) 30 mg tabletSig:Take 60 mg by mouth daily.Disp ense Amount:Start Date:End Date:Doc. Provider: Provider, Historicalbudesonide (PULMICORT) 0.5 mg/ 2 mL nbspSi mcg by Nebulization route two (2) times a day.Dispense Amount:Start Date:End Date: Doc. Provider: Provider, Historicalvalproate (DEPAKENE) 250 mg/5 mL syrupSig:Take 750 mg by mouth two (2) ti mes a day.Dispense Amount:Start Date:End Date:Doc. Provider: Provider, Historical ED Prescriptions None on FileFollow-up InformationNone Name Value Range Interpretation Code Description Data Harriett rce(s) Supporting Document(s ) ID Date Data Source [id number] 11/08/2018 04:41:01 AM EDT [facility] Call placed to Dr. Molina - Bolus of NSS started as per MD order VerbalCall placed to Kim regarding the IV bolus infusin g - RN aware Name Value Range Interpretation Code Description Data Harriett rce(s) Supporting Document(s ) ID Date Data Source [id number] 11/08/2018 04:31:42 AM EDT [facility] TRANSFER - OUT REPORT:Verbal report give n to Kim(name) on [facility] ine progression of careReport consisted of patient's Situation, Background, Assessm ent andRecommendations(SBAR).Information from the following report(s) SBAR, ED Summary and MAR was reviewedwith the receiving nurse.Lines:Peripheral IV 11/07/18 Left Forearm (Active)Site Assessment Clean, dry, & intact 11/07/2018 10:00 PMPhlebitis Asses sment 0 11/07/2018 10:00 PMDressing Status Clean, dry, & intact 11/07/2018 10:00 PMD ressing Type 4 X 4;Non-adherent dressing 11/07/2018 10:00 PMHub Color/Line Status [place] 11/07/2018 10:00 PMAlcohol Cap Used Yes 11/07/2018 10:00 PMOpportunity for questi ons and clarification was provided.Patient transported with: MonitorO2 @ bipap lite rsRegistered NurseTech Name Value Range Interpretation Code Description Data Harriett rce(s) Supporting Document(s ) ID Date Data Source [id number] 11/08/2018 04:19:25 AM EDT [facility] Called the floor to give reportWaiting f or Huey to call back Name Value Range Interpretation Code Description Data Harriett rce(s) Supporting Document(s ) ID Date Data Source [id number] 11/08/2018 04:16:22 AM EDT [facility] Name Value Range Interpretation Description Data Sup porting Code Source(s) Document(s ) Lactate 4.1 0.4-2.0 Above upper panic [facility] - [Moles/volu MMOL/L limits [facility]] in Hospital Serum or Plasma CALLED TO AND READ BACK MORENO LANG RN/0415 11/08/18 JERRY KERN ID Date Data Source [id number] 11/08/2018 04:16:22 AM EDT [facility] Name Value Range Interpretation Description Data Sup porting Code Source(s) Document(s ) Lactate 4.1 0.4-2.0 Above upper panic [facility] - Good [Moles/volu MMOL/L limits [facility]] in Hospital Serum or Plasma CALLED TO AND READ BACK BYJAMIL LANG RN/0415 11/08/18 JERRY KERN ID Date Data Source [id number] 11/08/2018 02:39:50 AM EDT [facility] PT Returned fromCT and continues on Bipa pPt placed on monitor and will continue to assessPT is non verval Name Value Range Interpretation Code Description Data Harriett rce(s) Supporting Document(s ) ID Date Data Source [id number] 11/08/2018 12:40:57 AM EDT [facility] Examination: CTA Chest ? PE angiography History: Hypoxia; rule out pneumonia versus pulmonary embolismPriors: NoneTechnique : Low-dose, multiplanar, helical CTA chest was performed with bolusIVinjection from lungapices to bases. 3D-reformatted images were obtained and reviewed on a Providajob viewing workstation anddirectly supervised.Contrast: A total of 71 mL of Isovue-370 was administered intravenously forthisprocedure.Findings:No evidence of pulmonary embolism is seen.There is decreased size of the right hemithorax f rom chronic scarring and retraction with mediastinalshift left to right. Additio nal area of consolidation is seen in the right lower lobe and suggestssuperimpose d pneumonia with subsegmental atelectasis. Subsegmental atelectasisis also noted in the leftlung base, with pleural parenchymal scarring. Low lung volumes are seen.No pneumothorax seen.Aorta normal in caliber without aneurysm or dissection.Mediastin um no adenopathy. Mediastinal shift is seen in the left and right as aresult of safety and skill based pay manager nicchanges in the right hemithorax.Heart shows no chamber enlargement or pericard ial effusion.No acute fractures seen in the bony thorax, sternum, manubrium and rib cage. Multiple compressiondeformities are seen in the mid and lower thoracic spine , with superimposed spondyloarthropathy. Cannotexclude acute fracture.Impression: No evidence of pulmonary embolismRight lower lobe pneumonia suggested.Incidenta l scarring and retraction in the right hemithorax from remote/chronic inflammat ory diseaseand/or trauma.Bibasilar subsegmental atelectasis.Report Electron ically Signed By: Pawel Zafar M.D. - 11/08/2018 12:40 AMSigning date/time: 10/14 12:40 AMSigned by: PAWEL ZAFAR Name Value Range Interpretation Code Description Data Harriett rce(s) Supporting Document(s ) ID Date Data Source [id number] 11/07/2018 11:08:18 PM EDT [facility] Attempt to start IV in patient not succe ssful - Blood draw completedERMD awareWill continue to assess Name Value Range Interpretation Code Description Data Harriett rce(s) Supporting Document(s ) ID Date Data Source [id number] 11/07/2018 09:31:52 PM EDT [facility] Pt being placed on bipap by TELEMETRY MONITOR Name Value Range Interpretation Code Description Data Harriett rce(s) Supporting Document(s ) ID Date Data Source [id number] 11/07/2018 09:28:07 PM EDT [facility] Name Value Range Interpretation Description Data Sup porting Code Source(s) Document(s ) pH of Arterial 7.41 7.35-7.4 [facility] - blood 5 [facility] Hospital Carbon dioxide 73 mmHg 32-48 Above upper panic [facility] - [Partial limits Community pressure] in Hospital Arterial blood Oxygen 77 mmHg 83-108 Below low normal [facility] - [Partial Community pressure] in Hospital Arterial blood Carbon 49 19-24 Above high normal [facility] - dioxide, total mmol/L Community [Moles/volume] Hospital in Arterial blood Bicarbonate 46 21-28 Above upper panic [facility] - [Moles/volume] mmol/L limits Community in Arterial Hospital blood Oxygen 97 % 94-98 [facility] - saturation in [facility] Blood [facility] Base excess in 17.6 0-3 Above high normal [facility] - Arterial blood mmol/L Community by calculation Hospital Body site [facility] - [facility] Hospital Arterial [facility] - patency Wrist [facility] artery --pre Hospital arterial puncture NASAL [id number] TO AND READ BACK BYNANCY BYRNES at 2123 by SILVIO VELASCO [id number] ID Date Data Source [id number] 11/07/2018 09:28:07 PM EDT [facility] - [facility] Name Value Range Interpretation Description Data Sup porting Code Source(s) Document(s ) pH of Arterial 7.41 7.35-7.4 [facility] - Good blood [address] [place] [address] Carbon dioxide 73 mmHg 32-48 Above upper panic [facility] - Good [Partial limits [facility] pressure] in Hospital Arterial blood Oxygen 77 mmHg 83-108 Below low normal [facility] - Good [Partial [facility] pressure] in Hospital Arterial blood Carbon 49 19-24 Above high normal [facility] - Good dioxide, total mmol/L [facility] [Moles/volume] Hospital in Arterial blood Bicarbonate 46 21-28 Above upper panic [facility] - Go od [Moles/volume] mmol/L limits [facility] in Arterial Hospital blood Oxygen 97 % 94-98 [facility] - Good saturation in [facility] Base excess in 17.6 0-3 Above high normal [facility] - Good Arterial blood mmol/L [facility] by calculation Hospital Body site [facility] - Good [facility] Arterial [facility] - Good patency Wrist [facility] artery --pre Hospital arterial puncture NASAL [id number] TO AND READ BACK BYNANCY BYRNES at 2123 by SILVIO VELASCO [id number] ID Date Data Source [id number] 11/07/2018 08:10:26 PM EDT [facility] - Good [facility] XR CHEST PORTCLINICAL INDICATION PROVIDE D:. "sob."COMPARISON:. 09/26/2015.FINDINGS:. The pericardial/cardiac silhouette is en larged in the transverse dimension.There is no pulmonary vascular congestion or inte rstitial edema. Lineardensityin the left lung base and faint densities in the right mi d to lower lunglikelyrepresent atelectasis. There is no lobar consolidation or effus ion. There isnopneumothorax.IMPRESSION:. Bilateral lower lung atelectasis. No donna dence of consolidation or effusion.Signing date/time: 11/07/2018 8:10 PMSigned by: ELIZABETH FARR Name Value Range Interpretation Code Description Data Harriett rce(s) Supporting Document(s ) ID Date Data Source [id number] 11/12/2018 06:41:47 AM EDT [facility] Name Value Range Interpretation Description Data Sup porting Code Source(s) Document(s ) Service comment [facility] - [facility] Hospital Bacteria [facility] - identified in [facility] Unspecified Hospital specimen by Culture ID Date Data Source [id number] 11/07/2018 10:10:30 PM EDT [facility] Name Value Range Interpretation Description Data Sup porting Code Source(s) Document(s ) Natriuretic 41 pg/mL 0-100 [facility] - peptide B [facility] [Mass/volume] Hospital in Serum or Plasma ID Date Data Source [id number] 11/07/2018 10:01:44 PM EDT [facility] Name Value Range Interpretation Description Data Sup porting Code Source(s) Document(s ) aPTT in 25.4 SEC 21.0-28. [facility] - Platelet poor 0 [facility] plasma by [facility] Coagulation assay Therapeutic Range = 42.0-60.0 secs ID Date Data Source [id number] 11/07/2018 10:01:44 PM EDT [facility] Name Value Range Interpretation Description Data Sup porting Code Source(s) Document(s ) Prothrombin 10.3 sec 9.4-11.1 [facility] - time (PT) [facility] INR in 1.0 0.8-1.2 [facility] - Platelet poor [facility] plasma by [facility] Coagulation assay ID Date Data Source [id number] 11/07/2018 10:01:22 PM EDT [facility] Name Value Range Interpretation Description Data Sup porting Code Source(s) Document(s ) Lactate 2.5 0.4-2.0 Above upper panic [facility] - [Moles/volu MMOL/L limits Community me] in Hospital Serum or Plasma CALLED TO AND READ BACK BYLISA POWELL [place] 11/07/18 2201 PATRIZIA MAURICE ID Date Data Source [id number] 11/07/2018 09:54:37 PM EDT [facility] Name Value Range Interpretation Description Data Sup porting Code Source(s) Document(s ) Troponin 0.00-0.05 [facility] - I.cardiac Community [Mass/volume Hospital ] in Serum or Plasma (NOTE)The presence of detectable troponi n above the reference rangeindicates myocardial injury which may be due to is chemia,myocarditis, trauma, etc. Clinical correlation is necessary todetermine the significance of this finding. Sequential testing isrecommended to determine if th e typical rise and fall of cTnI isdemonstrated. Note, cardiac troponin-I has a relatively longhalf-life and may be present well after the CK MB has returne d tobaseline. cTnI results in the indeterminate/enriquez zone for myocardial infarction: 0.06 to 0.59 ng/mL cTnI cutoff/range of values consistent with m yocardial infarction: 0.60 to 1.50 ng/mL ID Date Data Source [id number] 11/07/2018 09:54:37 PM EDT [facility] Name Value Range Interpretation Description Data Sup porting Code Source(s) Document(s ) Sodium 139 136-145 [facility] - [Moles/volume] mmol/L Community in Serum or Hospital Plasma Potassium 4.1 3.5-5.1 [facility] - [Moles/volume] mmol/L Community in Serum or Hospital Plasma Chloride 95 98-107 Below low normal [facility] - [Moles/volume] mmol/L Community in Serum or Hospital Plasma Carbon 39 21-32 Above high normal [facility] - dioxide, total mmol/L Community [Moles/volume] Hospital in Serum or Plasma Anion gap in 10 10-20 [facility] - Serum or mmol/L Community Plasma Hospital Glucose 122 74-106 Above high normal [facility] - [Mass/volume] mg/dL Community in Serum or Hospital Plasma Urea nitrogen 15 mg/dL 7-18 [facility] - [Mass/volume] Community in Serum or Hospital Plasma Creatinine 0.71 0.70-1.3 [facility] - [Mass/volume] mg/dL 0 Community in Serum or Hospital Plasma Glomerular >60 [facility] - filtration Community rate/1.73 sq M Hospital predicted among blacks [Volume Rate/Area] in Serum or Plasma by Creatinine-bas ed formula (MDRD) Glomerular >60 [facility] - filtration Community rate/1.73 sq M Hospital predicted among non-blacks [Volume Rate/Area] in Serum or Plasma by Creatinine-bas ed formula (MDRD) (NOTE)Estimated GFR is calculated using the Modification of Diet in RenalDisease (MDRD) Study equation, reported for both Americans(GFRAA) and non- Americans (GFRNA), and normalized to 1.7 3m0pddy surface area. The physician must decide which value applies tothe patient . The MDRD study equation should only be used inindividuals age 18 or older. It has no t been validated for thefollowing: women, patients with serious comorbid co nditions,or on certain medications, or persons with extremes of body size,muscl e mass, or nutritional status. Calcium [Mass/volume] in 9.2 mg/dL 8.5-10.1 [facility] - [facility] Serum or Plasma Hospital Bilirubin.total 0.1 mg/dL 0.2-1.0 Below low normal [facility] - Community [Mass/volume] in Serum or Hosp ital Plasma Alanine aminotransferase 13 U/L 13-61 [facility] - Community [Enzymatic activity/volume] Ho spital in Serum or Plasma Aspartate aminotransferase 15 U/L 15-37 [facility] - Community [Enzymatic activity/volume] Ho spital in Serum or Plasma by With P-5'-P Alkaline phosphatase 72 U/L 45-117 [facility] - C ommunity [Enzymatic activity/volume] Ho spital in Serum or Plasma Protein [Mass/volume] in 7.4 g/dL 6.4-8.2 [facility] - Community Serum or Plasma Hospital Albumin [Mass/volume] in 3.1 g/dL 3.5-4.7 Below low normal [facility] - Community Serum or Plasma by Hospital Bromocresol purple (BCP) dye binding method Globulin [Mass/volume] in 4.3 g/dL 1.7-4.7 [facility] - Community Serum by [facility] Hospital Albumin/Globulin [Mass 0.7 0.7-2.8 [facility] - Community Ratio] in Serum or Plasma Hosp ital ID Date Data Source [id number] 11/07/2018 09:54:37 PM EDT [facility] - [facility] Name Value Range Interpretation Description Data Sup porting Code Source(s) Document(s ) Magnesium 1.6 mg/dL 1.6-2.6 [facility] - [Mass/volume] Community in Serum or Hospital Plasma ID Date Data Source [id number] 11/07/2018 09:41:10 PM EDT [facility] - [facility] Name Value Range Interpretation Description Data Sup porting Code Source(s) Document(s ) Leukocytes 6.6 K/uL 4.8-10.6 [facility] - [#/volume] in [facility] Blood by Hospital Automated count Erythrocytes 4.78 4.70-6.0 [facility] - [#/volume] in M/uL 0 [facility] Blood by Hospital Automated count Hemoglobin 15.5 14.0-18. [facility] - [Mass/volume] in g/dL 0 [facility] Blood [facility] Hematocrit 47.6 % 42.0-52. [facility] - [Volume 0 Community Fraction] of Hospital Blood by Automated count Erythrocyte mean 99.6 FL 81.0-94. Above high normal [facility] - corpuscular 0 Community volume [Entitic Hospital volume] by Automated count Erythrocyte mean 32.4 PG 27.0-35. [facility] - corpuscular 0 [facility] hemoglobin Hospital [Entitic mass] by Automated count Erythrocyte mean 32.6 30.7-37. [facility] - corpuscular g/dL 3 Community hemoglobin Hospital concentration [Mass/volume] by Automated count Erythrocyte 13.4 % 11.5-14. [facility] - distribution 0 Community width [Ratio] by Hospital Automated count Platelets 193 K/uL 130-400 [facility] - [#/volume] in Community Blood by Hospital Automated count Platelet mean 10.1 FL 9.2-11.8 [facility] - volume [Entitic Community volume] in Blood Hospital by Automated count Segmented 90 % 48.0-72. Above high normal [facility] - neutrophils/100 0 Community leukocytes in Hospital Blood Lymphocytes/100 9 % 18.0-40. Below low normal [facility] - leukocytes in 0 [facility] Hospital Monocytes/100 1 % 2.0-12.0 Below low normal [facility] - leukocytes in [facility] Eosinophils/100 0 % 0.0-7.0 [facility] - leukocytes in [facility] Basophils/100 0 % 0.0-3.0 [facility] - leukocytes in [facility] Segmented 5.9 K/UL 1.5-6.6 [facility] - neutrophils Community [#/volume] in Hospital Blood Lymphocytes 0.6 K/UL 1.5-3.5 Below low normal [facility] - [#/volume] in [facility] Monocytes 0.1 K/UL 0.0-1.0 [facility] - [#/volume] in [facility] Eosinophils 0.0 K/UL 0.0-0.7 [facility] - [#/volume] in [facility] Basophils 0.0 K/UL 0.0-0.1 [facility] - [#/volume] in [facility] Differential [facility] - cell count [facility] Immature 1 % 0.0-2.0 [facility] - granulocytes/100 Community leukocytes in Hospital Blood by Automated count ID Date Data Source [id number] 11/12/2018 06:41:47 AM EDT [facility] Name Value Range Interpretation Description Data Sup porting Code Source(s) Document(s ) Service comment [facility] Bacteria [facility] identified in [facility] specimen by Culture ID Date Data Source [id number] 11/07/2018 10:10:30 PM EDT [facility] Name Value Range Interpretation Description Data Sup porting Code Source(s) Document(s ) Natriuretic 41 pg/mL 0-100 [facility] peptide [facility] [Mass/volume] Hospital in Serum or Plasma ID Date Data Source [id number] 11/07/2018 10:01:44 PM EDT [facility] Name Value Range Interpretation Description Data Sup porting Code Source(s) Document(s ) aPTT in 25.4 SEC 21.0-28. [facility] - Good Platelet poor 0 Taoist plasma by [facility] Coagulation assay Therapeutic Range = 42.0-60.0 secs ID Date Data Source [id number] 11/07/2018 10:01:44 PM EDT [facility] Name Value Range Interpretation Description Data Sup porting Code Source(s) Document(s ) Prothrombin 10.3 sec 9.4-11.1 [facility] - Good time (PT) [facility] INR in 1.0 0.8-1.2 [facility] - Good Platelet poor Taoist plasma by [facility] Coagulation assay ID Date Data Source [id number] 11/07/2018 10:01:22 PM EDT [facility] Value Range Interpretation Description Data Sup porting Code Source(s) Document(s ) Lactate 2.5 0.4-2.0 Above upper panic [facility] Good [Moles/volu MMOL/L limits [facility]] in Hospital Serum or Plasma CALLED TO AND READ BACK BYLISA POWELL [facility] 11/07/18 2201 PATRIZIA CHRISE ID Date Data Source [id number] 11/07/2018 09:54:37 PM EDT [facility] Value Range Interpretation Description Data Sup porting Code Source(s) Document(s ) Troponin 0.00-0.05 [facility] - Good I.cardiac [facility] [Mass/volume Hospital ] in Serum or Plasma (NOTE)The presence of detectable troponi n above the reference rangeindicates myocardial injury which may be due to is chemia,myocarditis, trauma, etc. Clinical correlation is necessary todetermine the significance of this finding. Sequential testing isrecommended to determine if th e typical rise and fall of cTnI isdemonstrated. Note, cardiac troponin-I has a relatively longhalf-life and may be present well after the CK MB has returne d tobaseline. cTnI results in the indeterminate/enriquez zone for myocardial infarction: 0.06 to 0.59 ng/mL cTnI cutoff/range of values consistent with m yocardial infarction: 0.60 to 1.50 ng/mL ID Date Data Source [id number] 11/07/2018 09:54:37 PM EDT [facility] Name Value Range Interpretation Description Data Sup porting Code Source(s) Document(s ) Sodium 139 136-145 [facility] [Moles/volume] mmol/L [facility] in Serum or Hospital Plasma Potassium 4.1 3.5-5.1 [facility] - [facility] [Moles/volume] mmol/L [facility] in Serum or Hospital Plasma Chloride 95 98-107 Below low normal [facility] - Good [Moles/volume] mmol/L [facility] in Serum or Hospital Plasma Carbon 39 21-32 Above high normal [facility] - Good dioxide, total mmol/L [facility] [Moles/volume] Hospital in Serum or Plasma Anion gap in 10 10-20 [facility] - Good Serum or mmol/L [facility] Plasma Hospital Glucose 122 74-106 Above high normal [facility] - Good [Mass/volume] mg/dL [facility] in Serum or Hospital Plasma Urea nitrogen 15 mg/dL 7-18 [facility] - Good [Mass/volume] [facility] in Serum or Hospital Plasma Creatinine 0.71 0.70-1.3 [facility] - Good [Mass/volume] mg/dL 0 [facility] in Serum or Hospital Plasma Glomerular >60 [facility] - Good filtration Taoist rate/1.73 sq M Hospital predicted among blacks [Volume Rate/Area] in Serum or Plasma by Creatinine-bas ed formula (MDRD) Glomerular >60 [facility] - Good filtration Taoist rate/1.73 sq M Hospital predicted among non-blacks [Volume Rate/Area] in Serum or Plasma by Creatinine-bas ed formula (MDRD) (NOTE)Estimated GFR is calculated using the Modification of Diet in RenalDisease (MDRD) Study equation, reported for both Americans(GFRAA) and non- Americans (GFRNA), and normalized to 1.7 9t1qotw surface area. The physician must decide which value applies tothe patient . The MDRD study equation should only be used inindividuals age 18 or older. It has no t been validated for thefollowing: women, patients with serious comorbid co nditions,or on certain medications, or persons with extremes of body size,muscl e mass, or nutritional status. Calcium [Mass/volume] in 9.2 mg/dL 8.5-10.1 [facility] - Good Serum or Plasma [facility] ital Bilirubin.total 0.1 mg/dL 0.2-1.0 Below low normal [facility] - Good [Mass/volume] in Serum or [facility] Plasma Alanine aminotransferase 13 U/L 13-61 [facility] - Good [Enzymatic activity/volume] [facility] in Serum or Plasma Aspartate aminotransferase 15 U/L 15-37 [facility] - Good [Enzymatic activity/volume] [facility] in Serum or Plasma by With P-5'-P Alkaline phosphatase 72 U/L 45-117 [facility] - G ood [Enzymatic activity/volume] [facility] in Serum or Plasma Protein [Mass/volume] in 7.4 g/dL 6.4-8.2 [facility] - Good Serum or Plasma [facility] ital Albumin [Mass/volume] in 3.1 g/dL 3.5-4.7 Below low normal [facility] - Good Serum or Plasma by [facility] ospital Bromocresol purple (BCP) dye binding method Globulin [Mass/volume] in 4.3 g/dL 1.7-4.7 [facility] - Good Serum by calculation [facility] Albumin/Globulin [Mass 0.7 0.7-2.8 [facility] - Good Ratio] in Serum or Plasma [facility] ID Date Data Source [id number] 11/07/2018 09:54:37 PM EDT [facility] Name Value Range Interpretation Description Data Sup porting Code Source(s) Document(s ) Magnesium 1.6 mg/dL 1.6-2.6 [facility] - Good [Mass/volume] [facility] in Serum or Hospital Plasma ID Date Data Source [id number] 11/07/2018 09:41:10 PM EDT [facility] Name Value Range Interpretation Description Data Sup porting Code Source(s) Document(s ) Leukocytes 6.6 K/uL 4.8-10.6 [facility] - [#/volume] in Good Blood by [facility] Erythrocytes 4.78 4.70-6.0 [facility] - [#/volume] in M/uL 0 Good Blood by [facility] Automated count Hospital Hemoglobin 15.5 14.0-18. [facility] - [Mass/volume] in g/dL 0 [facility] Hematocrit 47.6 % 42.0-52. [facility] - [Volume 0 Good Fraction] of [facility] Blood by Hospital Automated count Erythrocyte mean 99.6 FL 81.0-94. Above high normal [facility] - corpuscular 0 Good volume [Entitic Taoist volume] by Hospital Automated count Erythrocyte mean 32.4 PG 27.0-35. [facility] - corpuscular 0 Good hemoglobin Taoist [Entitic mass] Hospital by Automated count Erythrocyte mean 32.6 30.7-37. [facility] - corpuscular g/dL 3 Good hemoglobin [facility] concentration Hospital [Mass/volume] by Automated count Erythrocyte 13.4 % 11.5-14. [facility] - distribution 0 Good width [Ratio] by [facility] Hospital Platelets 193 K/uL 130-400 [facility] - [#/volume] in [facility] Blood by [facility] Autom[facility] count Hospital Platelet mean 10.1 FL 9.2-11.8 [facility] - volume [Entitic Good volume] in Blood [facility]ist by Automated Hospital count Segmented 90 % 48.0-72. Above high normal [facility] - neutrophils/100 0 [facility] leukocytes in [facility] Lymphocytes/100 9 % 18.0-40. Below low normal [facility] - leukocytes in 0 [facility] Monocytes/100 1 % 2.0-12.0 Below low normal [facility] - leukocytes in [facility] Eosinophils/100 0 % 0.0-7.0 [facility] - leukocytes in [facility] Basophils/100 0 % 0.0-3.0 [facility] - leukocytes in [facility] Segmented 5.9 K/UL 1.5-6.6 [facility] - neutrophils Good [#/volume] in [facility] Lymphocytes 0.6 K/UL 1.5-3.5 Below low normal [facility] - [#/volume] in [facility] Monocytes 0.1 K/UL 0.0-1.0 [facility] - [#/volume] in [facility] Eosinophils 0.0 K/UL 0.0-0.7 [facility] - [#/volume] in [facility] Basophils 0.0 K/UL 0.0-0.1 [facility] - [#/volume] in [facility] Differential [facility] - cell count [facility] method - [facility] Immature 1 % 0.0-2.0 [facility] - granulocytes/100 [facility] leukocytes in [facility] Blood by Hospital Automated count ID Date Data Source [id number] 11/12/2018 06:41:49 AM EDT [facility] Name Value Range Interpretation Description Data Sup porting Code Source(s) Document(s ) Service comment [facility] Bacteria [facility] - identified in [facility] specimen by Culture ID Date Data Source [id number] 11/12/2018 06:41:49 AM EDT [facility] Name Value Range Interpretation Description Data Sup porting Code Source(s) Document(s ) Service comment [facility] - [facility] Bacteria [facility] - [facility] identified in [facility] specimen by Culture ID Date Data Source [id number] 11/07/2018 07:27:56 PM EDT [facility] duoneb and methylprednisoline 40mg IM gi diogo at [place] [facility] [address] Name Value Range Interpretation Code Description Data Harriett rce(s) Supporting Document(s ) ID Date Data Source [id number] 11/07/2018 07:19:02 PM EDT [facility] Sent from [place] for wheezing and s hortness of breath. Pulse ox 84% roomair. duoneb and IV given by medics Name Value Range Interpretation Code Description Data Harriett rce(s) Supporting Document(s ) Procedure Social History Code Duration Value Status Description Data Source(s ) Alcohol intake 05/01/2019 Current completed Current [facility] 12:00:00 AM EST non-drinker of non-drinker of [employer] alcohol (finding) System [employer] (finding) Smoking 05/01/2019 Never smoker completed Never smoker [facility] 12:00:00 AM EST [facility] Alcohol intake 04/16/2019 Current completed Current [facility] 12:00:00 AM EST non-drinker of non-drinker of [facility] alcohol alcohol (finding) [employer] (finding) Smoking 04/16/2019 Never smoker completed Never smoker [facility] 12:00:00 AM EST Fl[employer] Alcohol intake 03/31/2019 Current completed Current [facility] 12:00:00 AM EST non-drinker of non-drinker of [employer] alcohol (finding) System Inc (finding) Smoking 03/31/2019 Never smoker completed Never smoker [facility] 12:00:00 AM EST [employer] Alcohol intake 03/11/2019 Current completed Current [facility] 12:00:00 AM EST non-drinker of non-drinker of Ka[place] alcohol alcohol (finding) System Inc (finding) Smoking 03/11/2019 Never smoker completed Never smoker [facility] 12:00:00 AM EST [employer] Smoking 02/19/2019 Never smoker completed Never smoker [facility] 12:00:00 AM EST [employer] Smoking 02/17/2019 Never smoker completed Never smoker [facility] 12:00:00 AM EST [employer] Smoking 12/12/2018 Never smoker completed Never smoker [facility] 12:00:00 AM EDT [employer] Smoking 11/07/2018 Never smoker completed Never smoker [facility] 12:00:00 AM [employer] Alcohol intake No completed [facility] [employer] Alcohol intake No completed [employer] Alcohol intake No completed [facility] [email or web address] Alcohol intake No completed [facility] [employer] Vital Signs ID Date Data Source UNK Name Value Range Interpretation Code Description Data Source(s) Oxygen saturation 97 % 97 % [facility] in Arterial blood [employer] by Pulse oximetry System Inc Respiratory rate 16 /min 16 /min [facility] [employer] Body temperature 36.78 Laya 36.78 Laya [facility] [employer] Heart rate 70 /min 70 /min [facility] [employer] Diastolic blood 86 mm[Hg] 86 mm[Hg] [facility] pressure [employer] Systolic blood 146 mm[Hg] 146 mm[Hg] [facility] pressure [facility] Body mass index 21.03 kg/m2 21.03 kg/m2 [facility] (BMI) [Ratio] [email or web address] Inc Body weight 52.164 kg 52.164 kg [facility] [employer] Body height 157.5 cm 157.5 cm [facility] [employer] Oxygen saturation 100 % 100 % [facility] in Arterial blood [facility] by Pulse oximetry System Inc Respiratory rate 18 /min 18 /min [facility] [employer] Heart rate 61 /min 61 /min [facility]ubbl Inc Diastolic blood 46 mm[Hg] 46 mm[Hg] [facility] pressure [employer] Systolic blood 108 mm[Hg] 108 mm[Hg] [facility] pressure [employer] Body temperature 36.56 Laya 36.56 Laya [facility] [employer] Body mass index 18.84 kg/m2 18.84 kg/m2 [facility] (BMI) [Ratio] [employer] Body weight 46.72 kg 46.72 kg [facility] [employer] Body height 157.5 cm 157.5 cm [employer] Oxygen saturation 99 % 99 % [facility] in Arterial blood [facility] by Pulse oximetry System Inc Respiratory rate 18 /min 18 /min [facility] [employer] Body temperature 36.83 Laya 36.83 Laya [facility] [employer] System [employer] Heart rate 80 /min 80 /min [facility]ubbl Inc Diastolic blood 72 mm[Hg] 72 mm[Hg] [facility] pressure [employer] Systolic blood 122 mm[Hg] 122 mm[Hg] [facility] pressure [employer] System Inc Body mass index 19.00 kg/m2 19.00 kg/m2 [facility] (BMI) [Ratio] [employer] Body weight 47.129 kg 47.129 kg [facility] [employer] Oxygen saturation 97 % 97 % [facility] in Arterial blood [facility] by Pulse oximetry System Inc Respiratory rate 22 /min 22 /min [facility] [employer] Body temperature 36.67 Laya 36.67 Laya [facility] [email or web address] System Inc Heart rate 64 /min 64 /min Bon [employer] System Inc Diastolic blood 71 mm[Hg] 71 mm[Hg] [facility] pressure [employer] Systolic blood 122 mm[Hg] 122 mm[Hg] [facility] pressure [employer] Body mass index 22.11 kg/m2 22.11 kg/m2 [facility] (BMI) [Ratio] [employer] Body weight 54.84 kg 54.84 kg [facility] [employer] Body height 157.5 cm 157.5 cm [facility] [employer] Oxygen saturation 96 % 96 % [facility] in Arterial blood [facility] by Pulse oximetry System Inc Respiratory rate 20 /min 20 /min [facility] [employer] Heart rate 81 /min 81 /min [facility] [employer] Diastolic blood 78 mm[Hg] 78 mm[Hg] [facility] pressure [employer] Systolic blood 133 mm[Hg] 133 mm[Hg] [facility] pressure [employer] Body temperature 36.61 Laya 36.61 Laya [facility] [employer] Body mass index 24.69 kg/m2 24.69 kg/m2 [facility] (BMI) [Ratio] [employer] [facility] Body weight 61.236 kg 61.236 kg [facility] [employer] Body height 157.5 cm 157.5 cm [facility] [employer] Oxygen saturation 92 % 92 % [facility] in Arterial blood [facility] by Pulse oximetry System Inc Respiratory rate 20 /min 20 /min [facility] [employer] Body temperature 36.61 Laya 36.61 Laya [facility] [employer] Heart rate 65 /min 65 /min [facility] SecBubbl Inc Diastolic blood 66 mm[Hg] 66 mm[Hg] [facility] pressure [employer] Systolic blood 126 mm[Hg] 126 mm[Hg] [facility] pressure [employer] Body mass index 24.69 kg/m2 24.69 kg/m2 [facility] (BMI) [Ratio] [employer] Inc Body weight 61.236 kg 61.236 kg [facility] [employer] Body height 157.5 cm 157.5 cm [facility] [employer] Oxygen saturation 93 % 93 % [facility] in Arterial blood [facility] by Pulse oximetry System Inc Respiratory rate 20 /min 20 /min [facility] [employer] System [employer] Body temperature 36.11 Laya 36.11 Laya [facility] [employer] System [employer] Heart rate 91 /min 91 /min [facility]light System Inc Diastolic blood 93 mm[Hg] 93 mm[Hg] [facility] pressure [employer] System Inc Systolic blood 105 mm[Hg] 105 mm[Hg] [facility] pressure [employer] Body mass index 22.95 kg/m2 22.95 kg/m2 [facility] (BMI) [Ratio] [employer] [facility] Body weight 56.926 kg 56.926 kg [facility] [employer] Body height 157.5 cm 157.5 cm [employer] Oxygen saturation 96 % 96 % [facility] in Arterial blood [employer] by Pulse oximetry System Inc Respiratory rate 20 /min 20 /min [facility] [employer] Body temperature 36.11 Laya 36.11 Laya [facility] [employer] System [employer] Heart rate 82 /min 82 /min [employer] Inc Diastolic blood 53 mm[Hg] 53 mm[Hg] [facility] pressure [employer] Systolic blood 98 mm[Hg] 98 mm[Hg] [facility] pressure [employer] Body mass index 20.91 kg/m2 20.91 kg/m2 [facility] (BMI) [Ratio] [employer] [facility] Body weight 51.846 kg 51.846 kg [facility] [employer] Body height 157.5 cm 157.5 cm [employer] Oxygen saturation 91 % 91 % [facility] in Arterial blood [employer] by Pulse oximetry System Inc Respiratory rate 20 /min 20 /min [facility] [employer] Body temperature 36.22 Laya 36.22 Laya [facility] [employer] Heart rate 81 /min 81 /min [employer] Diastolic blood 58 mm[Hg] 58 mm[Hg] [facility] pressure [employer] Systolic blood 109 mm[Hg] 109 mm[Hg] [facility] pressure [employer] Body mass index 21.47 kg/m2 21.47 kg/m2 [facility] (BMI) [Ratio] [employer] Inc Body weight 53.252 kg 53.252 kg [facility] [employer] Body height 157.5 cm 157.5 cm [facility] [employer] Patient Treatment Plan of Care Planned Activity Planned Date Details Description Data Source (s) Prednisone 10 MG Oral Tablet 05/08/2019 [facility] 12:00:00 AM Meet [employer] 1 ML Lorazepam 2 MG/ML 05/07/2019 [facility] Injection 10:00:00 PM EST [employer] potassium phosphate 155 MG / 05/07/2019 [facility] Sodium Phosphate, Dibasic 852 12:00:00 AM Flash Valet System Inc MG / Sodium Phosphate, Monobasic 130 MG Oral Tablet vancomycin 50 mg/mL oral 05/05/2019 [facility] solution (compounded) 12:00:00 AM EST [facility] Metoprolol Tartrate 25 MG 05/05/2019 [facility] Oral Tablet 12:00:00 AM EST [employer] Methylprednisolone 40 MG/ML 05/05/2019 [facility] Injectable Solution 12:00:00 AM EST [employer] meropenem 500 mg IVPB 05/05/2019 [facility] 12:00:00 AM [employer] Metoprolol Tartrate 1 MG/ML 05/02/2019 [facility] Injectable Solution 03:02:58 PM EST [employer] ondansetron (ZOFRAN) 04/25/2019 [facility] injection 4 mg 06:51:01 PM EST [employer] sodium chloride (NS) flush 04/25/2019 [facility] 5-40 mL 06:43:31 PM [employer] omeprazole (PRILOSEC) 2 mg/mL 04/06/2019 [facility] susp 2 mg/mL oral suspension 12:00:00 AM [email or web address] (compounded) Acetaminophen 32 MG/ML Oral 03/25/2019 [facility] Solution 07:17:04 AM [employer] lamotrigine 25 MG Chewable 03/18/2019 [facility] Tablet 12:00:00 AM [employer] Acetaminophen 32 MG/ML Oral 03/17/2019 [facility] Solution 12:00:00 AM [employer] multivitamin (MULTI-DELYN, 03/17/2019 [facility] WELLESSE) liqd 12:00:00 AM [employer] tem Inc 1 ML heparin sodium, porcine 03/17/2019 [facility] 5000 UNT/ML Injection 12:00:00 AM EST [email or web address] System Inc Amoxicillin 875 MG / 03/17/2019 [facility] Clavulanate 125 MG Oral 12:00:00 AM EST [employer] System [employer] Tablet Prednisone 1 MG/ML Oral 03/17/2019 [facility] Solution 12:00:00 AM [employer] Acetaminophen 32 MG/ML Oral 03/11/2019 [facility] Solution 10:42:33 AM [employer] sodium chloride (NS) flush 03/11/2019 [facility] 5-10 mL 03:55:00 AM [employer] pantoprazole 40 MG Oral 02/13/2019 [facility] Granules 12:00:00 AM EDT [employer] Prednisone 10 MG Oral Tablet 02/12/2019 [facility] 12:00:00 AM EDT [employer] Prednisone 10 MG Oral Tablet 02/12/2019 [facility] 12:00:00 AM EDT [employer] 1 ML heparin sodium, porcine 02/12/2019 [facility] 5000 UNT/ML Injection 12:00:00 AM EDT [email or web address] System [employer] cefepime 2 gram 2 g IVPB 02/12/2019 [facility] 12:00:00 AM EDT [employer] 1 ML heparin sodium, porcine 01/25/2019 [facility] 5000 UNT/ML Injection 12:00:00 AM EDT [email or web address] System Inc cholestyramine-aspartame 01/24/2019 [facility] (QUESTRAN LIGHT) 4 gram 12:00:00 AM EDT [employer] System Inc packet influenza vaccine 2019-20, 65 01/24/2019 [facility] yrs+,,PF, (FLUZONE HIGH-DOSE) 12:00:00 AM EDT Health System Inc syrg injection Acetaminophen 32 MG/ML Oral 01/24/2019 [facility] Solution 12:00:00 AM EDT Health Syste m Inc piperacillin-tazobactam 3.375 01/24/2019 [facility] gram 3.375 g IVPB 12:00:00 AM EDT [facility] Acetylcysteine 100 MG/ML 01/24/2019 [facility] Inhalant Solution 12:00:00 AM EDT [facility] Budesonide 0.25 MG/ML 12/30/2018 [facility] Inhalant Solution 12:00:00 AM EDT [facility] Albuterol 0.833 MG/ML / 12/30/2018 [facility] Ipratropium Iola 0.167 12:00:00 AM EDT [facility] MG/ML Inhalant Solution cinacalcet 30 MG Oral Tablet 12/30/2018 [facility] 12:00:00 AM EDT Health Syste m Inc Clorazepate Dipotassium 3.75 12/30/2018 [facility] MG Oral Tablet 12:00:00 AM EDT [facility] lamotrigine 25 MG Oral Tablet 12/30/2018 [facility] 12:00:00 AM EDT [facility] Bacitracin 0.5 UNT/MG Topical 12/30/2018 [facility] Ointment 12:00:00 AM EDT [facility] Albuterol 0.833 MG/ML / 12/30/2018 [facility] Ipratropium Iola 0.167 12:00:00 AM EDT [facility] MG/ML Inhalant Solution multivitamin (ONE A DAY) 12/30/2018 [facility] tablet 12:00:00 AM EDT Health Sy[facility] Inc cholestyramine-aspartame 12/30/2018 [facility] (QUESTRAN LIGHT) 4 gram 12:00:00 AM EDT ealt System Inc packet valacyclovir 1000 MG Oral 12/30/2018 [facility] Tablet 12:00:00 AM EDT [facility] potassium, sodium phosphates 12/30/2018 [facility] (NEUTRA-PHOS) 280-160-250 mg 12:00:00 AM EDT [facility] packet pantoprazole 40 MG Oral 11/28/2018 [facility] Granules 12:00:00 AM EDT Health Syste Inc Budesonide 0.25 MG/ML 11/27/2018 [facility] Inhalant Solution 12:00:00 AM [facility] System Inc Zinc Oxide 0.2 MG/MG Topical [facility] Ointment [facility] Acetylcysteine 100 MG/ML [facility] Inhalant Solution [facility] Valproic Acid 50 MG/ML Oral [facility] Solution [facility] omeprazole (PRILOSEC) 2 mg/mL [facility] susp 2 mg/mL oral suspension [facility] (compounded) Prednisone 1 MG/ML Oral [facility] Solution [facility]c silver sulfadiazine 10 MG/ML [facility] Topical Cream [facility] Zinc Oxide 100 MG/ML Topical [facility] Cream [facility] I nc multivitamin (MULTI-DELYN, B on [facility] WELLESS) liqd [facility] Valproic Acid 50 MG/ML Oral [facility] Solution [facility] I nc Acetaminophen 325 MG Rectal [facility] Suppository [facility] nc valacyclovir 1000 MG Oral Jeff n [facility] Tablet [facility] Albuterol 0.833 MG/ML / [facility] Ipratropium Iola 0.167 alth System Inc MG/ML Inhalant Solution Clorazepate Dipotassium 3.75 [facility] MG Oral Tablet [facility] multivitamin (ONE A DAY) [facility] tablet [facility] cinacalcet 30 MG Oral Tablet [facility] nc lamotrigine 25 MG Oral Tablet [facility] Clorazepate Dipotassium 3.75 [facility] MG Oral Tablet [facility] POLLEN EXTRACTS (PROSTAT PO) [facility] chlorhexidine gluconate 40 B on [facility] MG/ML Medicated Liquid Soap [facility] Loratadine 10 MG Oral Tablet [facility] nc OTHER [facility] [facility] Omeprazole 20 MG Delayed [facility] Release [facility] Albuterol 0.833 MG/ML / [facility] Ipratropium [place] 0.167 [facility] MG/ML Inhalant Solution Budesonide 0.25 MG/ML Sarbjit minaya [facility] Inhalant Solution [facility]
[2020-01-09 03:07] LABS: BILIRUBIN,TOTAL 0.3 mg/dL (0.2-1)
[2020-01-09] MEDS ORDERED: DEXTROSE 5%-0.45% SALINE 1,000 ML IV SCH (03:15)
--- NOTE | 2020-01-09 03:20 | HP ---
Admitting History and Physical - Primary Care Physician PCP: Nicola Gomez ([facility]) - Admission Chief Complaint: Gastrostomy Tube Dislodgement History of Present Illness: This is a 69 y/o male from [facility] with a significant PMHx of Cerebral Palsy, I ntellectual Disabilities, Parkinson's Disease, Chronic Respiratory Failure s/p trach-vent dependent, COPD, J-tube (for feeds), and G tube (for decompression), recently admitted with PNA, Sepsis and found to have C. diff. Presents to the ED via ambulance for J-tube displacement. Patient has CP, trach- vent dependent and is unable to provide HPI. History Source: Medical Record, Transfer Record Limitations to Obtaining History: Clinical Condition, Physical Impairment - Past Medical History SOCIAL PROFESSIONALS: Yes: Parkinson's, Seizure, Other (CP, MR) Pulmonary: Yes: Bronchitis, COPD, O2 Dependent (trach- vent dependent), Pneumonia, Previously Intubated, Other (Vent dependent via trach) Renal/: Yes: Other Infectious Disease: Yes: Other (resistant Pseudomonas) Psych: Yes: Schizophrenia Musculoskeletal: Yes: Other (functional quadriplegia) - Smoking History Smoking history: Unknown if ever smoked Have you smoked in the past 12 months: No - Alcohol/Substance Use Hx Alcohol Use: No History of Substance Use: reports: None - Social History ADL: Support Services History of Recent Travel: No Home Medications - Allergies Allergies/Adverse Reactions: Allergies Allergy/AdvReac Type Severity Reaction Status Date / Time No Known Allergies Allergy Verified 01/08/20 21:06 - Home Medications Home Medications: Ambulatory Orders Famotidine [Pepcid] 20 mg PO DAILY 10/11/19 Ferrous Sulfate [Feosol] 300 mg GT DAILY 10/11/19 L. Acidophilus/Pectin, [place] [Acidophilus Capsule] 1 each PO DAILY 10/11/19 Multivit-Minerals [Certavite-Antioxidant Liquid] 15 ml PO DAILY 10/11/19 Acetaminophen Oral Solution [Tylenol Oral Solution -] 650 mg PO Q6H PRN soln.oral 01/01/20 Amino Acids/Protein Hydrolys [Prosource No Carb Liquid Pkt] 30 ml GT DAILY@0800 packet 01/01/20 Ascorbic Acid [Vitamin C -] 500 mg PO BID tablet 01/01/20 Collagenase Clostridium Hist. [Santyl -] 1 applic TP DAILY tube 01/01/20 Ferrous Sulfate [Feosol] 300 mg GT DAILY udc 01/01/20 Fluconazole [Diflucan *Suspension* -] 100 mg PO DAILY 7 Days ml 01/01/20 Lactobacillus Acidophilus [Bacid -] 1 tab GT DAILY tab 01/01/20 Multivit-Minerals [Certavite-Antioxidant Liquid] 15 ml PO DAILY cup 01/01/20 Nystatin Ointment [Mycostatin Ointment -] 1 applic TP BID applic 01/01/20 Nystatin Powder [Nystop Powder -] 1 applic TP BID applic 01/01/20 Triamcinolone 0.5% Ointment [Aristocort 0.5% Ointment -] 1 applic TP BID tube 01/01/20 Vancomycin Oral Solution 125 mg PO Q6HPO 60 Days ml 01/01/20 Family Medical History Family History: Unable to Obtain Review of Systems Unable to obtain ROS, reason: Clinical Condition Physical Examination Vital Signs: Vital Signs Temperature 97.8 F 01/08/20 21:06 Pulse Rate 79 01/08/20 21:06 Respiratory Rate 16 01/09/20 01:00 Blood Pressure 101/60 01/08/20 21:06 O2 Sat by Pulse Oximetry (%) 100 01/09/20 01:06 Constitutional: Yes: No Distress, Calm, Pallor, Thin, Other (non-verbal- at baseline) Eyes: Yes: Conjunctiva Clear, PERRL HENT: Yes: Atraumatic, Normocephalic, Other (dry mucous membranes) Neck: Yes: Supple, Other (trach- vent dependent) Cardiovascular: Yes: Regular Rate and Rhythm, S1, S2 Respiratory: Yes: Diminished, Mechanically Ventilated (Trach), Rhonchi. No: Accessory Muscle Use Gastrointestinal: Yes: Normal Bowel Sounds, Soft, Hernia, Other (stoma opening- nontender, JTube- green drainage in tubing to bag) Renal/: Yes: [place] Present (yellow urine in tubing, drainage bag) Breast(s): Yes: WNL Extremities: Yes: Other (contractures) Edema: No Peripheral Pulses WNL: Yes Integumentary: Yes: Pressure Ulcer (unstageable left hip, sacrum, upper back) Wound/Incision: Yes: Dressing Dry and Intact Neurological: Yes: Other (non-verbal- baseline) Labs: CBC, BMP 01/09/20 01:36 01/09/20 01:36 Laboratory Results - last 24 hr 01/09/20 01/09/20 01:36 01:36 WBC 13.3 H RBC 2.88 L Hgb 8.7 L Hct 26.7 L MCV 92.5 MCH 30.1 MCHC 32.5 RDW 17.4 H Plt Count 864 H MPV 7.3 L Absolute Neuts (auto) 10.7 H Neutrophils % 80.6 Lymphocytes % 10.0 Monocytes % 5.1 Eosinophils % 3.2 Basophils % 1.1 Nucleated RBC % 0 Sodium 136 Potassium 4.9 Chloride 104 Carbon Dioxide 29 Anion Gap 3 L BUN 19.8 H Creatinine 0.2 L Est GFR (CKD-EPI)AfAm 186.75 Est GFR (CKD-EPI)NonAf 161.13 Random Glucose 65 L Calcium 8.3 L Total Bilirubin 0.3 AST 26 ALT 25 Alkaline Phosphatase 163 H Total Protein 6.5 Albumin 1.1 L Imaging - Results Chest X-ray: Image Reviewed EKG: Pending Problem List - Problems (1) Dislodged gastrostomy tube Assessment/Plan: Appreciate IR Consult Monitor CBC, CMP Monitor vitals Code(s): Z43.1 - ENCOUNTER FOR ATTENTION TO GASTROSTOMY (2) Pneumonia Assessment/Plan: Will treat for HCAP CURB65- 2, mod risk Chest Xray image reviewed- complete opacification of R-Lobes, ?Pneumonia vs Effusion vs Atelectasis + Leukocytosis without neutrophilia Blood Cultures-pending Urine Culture-pending Lactic Acid -pending Sputum Culture-pending Will treat empirically with Meropenem Sputum Culture 12/07/19- proteus mirabilus, pseudomonas aeruginosa, klebsiella pneumoniae-esbl Appreciate ID consult Monitor CBC Monitor vitals Maintain MAP > 65 Code(s): J18.9 - PNEUMONIA, UNSPECIFIED ORGANISM (3) Chronic respiratory failure Assessment/Plan: s/p trach- vent dependent Appreciate Pulm consult Chest Xray image reviewed- complete opacification of R-Lobes, ?Pneumonia vs Effusion vs Atelectasis Continue Vent settings: per CT records Aspiration Precautions Trach care Monitor vitals Code(s): J96.10 - CHRONIC RESPIRATORY FAILURE, UNSP W HYPOXIA OR HYPERCAPNIA Qualifiers: Respiratory failure complication: hypoxia and hypercapnia Qualified Code(s): J96.11 - Chronic respiratory failure with hypoxia; J96.12 - Chronic respiratory failure with hypercapnia (4) COPD (chronic obstructive pulmonary disease) Assessment/Plan: Continue current meds Appreciate Pulm consult Trach- Vent dependent Continue Vent settings Monitor vitals Code(s): J44.9 - CHRONIC OBSTRUCTIVE PULMONARY DISEASE, UNSPECIFIED Qualifiers: (5) C. difficile diarrhea Assessment/Plan: Isolation Precautions- contact Continue Vancomycin oral when G-tube replaced Consider ID consult Code(s): A04.72 - ENTEROCOLITIS D/T CLOSTRIDIUM DIFFICILE, NOT SPCF RECUR (6) Anemia Assessment/Plan: Hgb 8.7, at baseline Will transfuse if Hgb < 7.0 Monitor CBC Code(s): D64.9 - ANEMIA, UNSPECIFIED Qualifiers: (7) Cerebral palsy Assessment/Plan: Neuro Checks Fall Precautions Aspiration Precautions Monitor vitals Code(s): G80.9 - CEREBRAL PALSY, UNSPECIFIED Qualifiers: (8) Parkinson disease Assessment/Plan: Resume medication when G-tube replaced Code(s): G20 - PARKINSON'S DISEASE (9) Jejunostomy tube in situ Code(s): Z93.4 - OTHER ARTIFICIAL OPENINGS OF GASTROINTESTINAL TRACT STATUS (10) Pressure ulcer of back Assessment/Plan: Continue current medication Wound care Turn and reposition Q2h [employer] Code(s): L89.109 - PRESSURE ULCER OF UNSP PART OF BACK, UNSPECIFIED STAGE Qualifiers: Pressure injury stage: stage 3 Qualified Code(s): L89.103 - Pressure ulcer of unspecified part of back, stage 3 (11) Pressure ulcer of hip Assessment/Plan: Wound care Turn and Reposition Q2h Code(s): L89.209 - PRESSURE ULCER OF UNSPECIFIED HIP, UNSPECIFIED STAGE (12) Pressure ulcer, upper back Assessment/Plan: Wound Care Turn and Reposition Q2h Code(s): L89.109 - PRESSURE ULCER OF UNSP PART OF BACK, UNSPECIFIED STAGE (13) Seizure disorder Assessment/Plan: stable No Seizure Activity No current medication Seizure Precautions Code(s): G40.909 - EPILEPSY, UNSP, NOT INTRACTABLE, WITHOUT STATUS EPILEPTICUS (14) Hypocalcemia Assessment/Plan: Corrected Calcium 10.6 Monitor CMP Code(s): E83.51 - HYPOCALCEMIA (15) Functional quadriplegia Assessment/Plan: Complete immobility due to frailty, Cerebral palsy Requires total care Turn Q2h [facility] Lift as needed Heel Protectors Fall Precautions Code(s): R53.2 - FUNCTIONAL QUADRIPLEGIA (16) Encounter for screening laboratory testing for COVID-19 virus Assessment/Plan: SMART-SUPERVISOR OF WAY 2, low risk COVID PCR-pending Isolation Precautions Code(s): Z11.59 - ENCOUNTER FOR SCREENING FOR OTHER VIRAL DISEASES Assessment/Plan This is a 69 y/o male from [facility] with a significant PMHx of Cerebral Palsy, Intellectual Disabilities, Parkinson's Disease, Chronic Respiratory Failure s/p trach-vent dependent, COPD, J-tube (for feeds), and G tube (for decompression), recently admitted with PNA, Sepsis and found to have C. diff. Admitted for Gastrostomy Tube Dislodgement, Pneumonia, Chronic Respiratory Failure with Hypoxia, Hypercapnia for further evaluation of their emergent condition. Plan: See Problem List FEN D50.45%NS@30ml/hr Replete lytes prn NPO DVT ppx SCDs Lovenox SQ (Monitor CBC closely) Code Status: Full Code Dispo: Requires Inpatient Care Visit type - Medication Review Med list reviewed for High Risk Meds patients 65 and older: Yes - Emergency Visit Emergency Visit: Yes ED Registration Date: 01/08/20 Care time: The patient presented to the Emergency Department on the above date and was hospitalized for further evaluation of their emergent condition. - New Patient This patient is new to me today: Yes Date on this admission: 01/09/20 - Critical Care Critical Care patient: No
--- OUTSIDE RECORDS SUMMARY | 2020-01-09 03:43 | XMS ---
:1950 Author Organization [facility] Care Team Providers Name Role Phone [...] is protected by Article 27-F of the [facility] Public Health law. If you continue you may haveaccess to information: Regarding HIV / AIDS; Provided by facilities licensed or operated by the [facility] Office of Mental Health; or Provided by the [facility] Office for People With Developmental Disabilities. If such information is present, then the following [facility] mandated warning applies: This information has been [...] law may result in a fine or half-way sentence or both. A general authorization for the release of medical or other information is NOT sufficient authorization for further disclosure. Encounters Encounter Providers Location Date Indications Data Source(s ) Outpatient 05/01/2019 [facility] - Good 08:10:51 AM [facility] Inpatient Attender: [facility]: [facility] RESPIRATORY DIST[facility]ESS Outpatient 04/25/2019 08:00:00 [facility] - Good [facility] Outpatient 04/25/2019 07:55:00 [facility] - Good [facility] Outpatient 04/23/2019 10:10:00 [facility] - Good [facility] Outpatient 04/22/2019 09:45:00 [facility] - Good [facility] Outpatient 04/22/2019 04:45:00 [facility] Good [facility] Inpatient Admitter: 04/19/2019 12:00:00 Altered Mental [facility] - Good MILI HILLS EST - 05/07/2019 Status; Unre sponsive [facility] 02:53:00 PM [facility] Altered Mental Status; Unresponsive Patient discharged. S 04/16/2019 12:58:40 [facility] - Good PM EST [facility] S Admitter: DIOGO 04/16/2019 12:16:23 R13.12 OROH PHARYNGEAL [facility] EST - 04/16/2019 D[facility]SPHAGIA [facility] 04:00:00 PM EST R13.12 OROHPHARYNGEAL DYSPHAGIA Patient discharged. Outpatient 04/01/2019 07:40:00 [facility] - Good AM [facility] ital Outpatient 03/31/2019 02:30:22 [facility] - Good PM EST [facility] Inpatient Admitter: MILI 03/25/2019 12:00:00 shortness of [facility] - Good REINIER AM EST - 04/06/2019 [facility] 07:40:00 PM EST shortness of breath Patient discharged. Inpatient Admitter: MILI 03/11/2019 12:00:00 AM Pneumo freddy [facility] - Good REINIER EST - 03/17/2019 [facility] 08:10:00 PM EST Pneumonia Patient discharged. Emergency 02/19/2019 12:22:24 PM EST Tube Comp lication [facility] - Good [facility]oroastrianism - 02/19/2019 04:21:00 PM Hospital EST Tube Complication Patient discharged. Outpatient 02/17/2019 10:22:47 [facility] - Good AM EST [facility] ital Outpatient 02/12/2019 01:46:02 [facility] - Good PM EDT [facility] Outpatient 02/10/2019 03:05:00 [facility] - Good PM EDT [facility] Outpatient 02/10/2019 03:00:00 [facility] - Good PM EDT [facility] Inpatient Admitter: 02/07/2019 11:00:00 Respiratory Dist ress [facility] - Good CHAY PM EDT - 02/18/2019 [facility] 01:34:00 PM EST Respiratory Distress Patient discharged. Outpatient 01/21/2019 02:17:13 [facility] - Good PM EDT [facility] ital Outpatient 01/11/2019 06:55:00 [facility] - Good PM EDT [facility] Outpatient 01/11/2019 12:45:00 [facility] - Good PM EDT [facility] ital Outpatient 01/11/2019 12:40:00 [facility] - Good PM EDT [facility] ital Outpatient 01/10/2019 12:10:00 [facility] - Good PM EDT [facility] Inpatient Admitter: MILI 01/10/2019 12:00:00 Shortness of [facility] - Good REINIER AM EDT - 01/24/2019 [facility] 05:49:00 PM EDT Shortness of breath Patient discharged. Outpatient 12/30/2018 02:09:15 [facility] - Good PM EDT [facility] Outpatient 12/29/2018 10:25:00 [facility] - Good AM EDT [facility] Outpatient 12/26/2018 03:00:00 [facility] - Good PM EDT [facility] Outpatient 12/22/2018 12:30:34 [facility] - Good PM EDT [facility] Outpatient 12/17/2018 10:45:00 [facility] - Good PM EDT [facility] Outpatient 12/17/2018 10:40:00 [facility] - Good PM EDT [facility] Outpatient 12/17/2018 10:47:18 [facility] - Good AM EDT [facility] Outpatient 12/13/2018 05:05:00 [facility] - Good PM EDT [facility] Inpatient Admitter: MILI 12/12/2018 12:00:00 Unrespons britni; [facility] - Good [facility] EDT - 12/30/2018 [facility] 08:20:00 PM EDT Unresponsive; Sepsis Patient discharged. Outpatient 11/17/2018 08:25:37 AM [facility] Inpatient Admitter: MILI 11/07/2018 07:16:58 PM [facility] Patient admitted. Inpatient Admitter: MILI HILLS 11/07/2018 12:00:00 AM [facility] 04:44:00 PM EDT Patient discharged. Inpatient 11/07/2018 12:00:00 AM EDT [facility] Immunizations Vaccine Date Status Description Data Source(s) [...] seasonal 12:00:00 AM EDT Dose Vaccine PF [employer] [facility] Pneumococcal 09/30/2018 completed Pneumococcal 09/30/2018 [facility] conjugate PCV 13 12:00:00 AM EDT Conjugate [facility] (PCV-[facility] Medications Medication Brand Start Product Dose Route Administrative Pharmacy [facility] Indications Reaction Description Data Name Date Form [...] mg NEEDED, Hea lth Solution Starting Sat [facility] metoprolol 05/02/19 at Inc (LOPRESSOR) 1502, [...] 05/07/19 at 2200 Medication administered onsite enalaprilat 54314-726-60 05/01/2019 1.25 IntraVENous aborted 1.25 mg, Bon (VASOTEC) 06:00:00 PM mg IntraVEN ous, [facility] injection EST EVERY 6 Ameriac 1.25 mg HOURS, First [facility]al th dose [...] BREAKTHROUGH PAIN Medication administered onsite diatrizoate tiffani-diatrizoat [id number] 04/29/2019 30 compl eted 30 mL, Bon [...] 1 Discontinued Packet Medication administered onsite furosemide 80848-231-04 04/28/2019 20 IntraVENous aborted 20 mg, Bon (LASIX) 10:00:00 AM mg IntraVENou s, [facility] injection 20 EST 2 TIMES Daniela ity mg DAILY, [facility] dose on Sat System 04/28/19 at Inc 1000, Until Discontinued Medication administered onsite vits A and 5247-5747-28 04/28/2019 Topical active Topical, Bon D-white 09:14:06 [...] Until Inc Discontinued Medication administered onsite propofol 8056-5226-24 04/26/2019 IntraVENous aborted 0-50 Bon (DIPRIVAN) 12:00:00 [...] Sat05/01/19 at 2200 Medication administered onsite sodium 85726-479-74 04/25/2019 IntraVENous aborted 5-40 mL, Bon chloride 10:00:00 PM IntraVENo us, [facility] (NS) flush EST EVERY 8 Charit y 5-40 mL HOURS, First Heal th dose on Sat System 04/25/19 at Inc 2200, Until Discontinued Medication administered onsite dextrose 5 4122-0185-20 04/25/2019 50 IntraVENous aborted 50 mL/hr, at Bon % - 0.45% 07:00:00 PM mL/h 50 mL/hr , [facility] NaCl EST IntraVENous, [place] infusion CONTINUOUS, Heal th Starting Sat System 04/25/19 at Inc 1900, Until Sat04/28/19 at 0943 Medication administered onsite ondansetron 34682-062-35 04/25/2019 4 IntraVENous active 4 mg, Bon [...] mg EST NEEDED , [place] acetaminophen Starting [facility] (TYLENOL) 04/25/19 at Syst em tablet 650 mg 1849, Until Inc Discontinued, Mild Pain Medication administered onsite sodium 32861-582-18 04/25/2019 IntraVENous active 5-40 mL, Bon chloride [...] c Until Discontinued Medication administered onsite potassium 6201-6422-28 04/25/2019 40 Per G completed 40 mEq, [...] Hours , [place] sodium ONCE, 1 dose, [facility] th chloride 250 04/24/19 System Inc mL infusion at 1200 Medication administered onsite 1 ML LORazepam 04/23/2019 1 IntraMUSCular completed 1 mg, Bon Lorazepam (ATIVAN) 09:00:00 PM mg Intr aMUSCular, [facility] 2 MG/ML injection EST ONCE, 1 dose , [place] Injection 1 mg Caro 04/23/19 at H ealth LORazepam 2100 System (ATIVAN) Inc injection 1 mg Medication administered onsite furosemide 91676-165-13 04/22/2019 20 IntraVENous complete d 20 mg, [...] active 3 mL, Nebulization, Bon / Ipratropium [place] (DUO-NEB) 2.5 MG-0.5 02:00:00 PM mL EVERY [...] on Ch arity Topical Tue 04/21/19 at [facility] Cream 1800, Until System miconazole Discontinued I [...] 12 HOURS, [place] lamoTRIgine First dose on [facility] (LaMICtal) 04/19/19 at System tablet 50 mg 2100, Until Inc Discontinued Medication administered onsite Budesonide budesonide 04/19/2019 500 Nebulization active 500 mcg, Bon 0.25 MG/ML (PULMICORT) 08:00:00 PM ug Nebulization, 2 TIMES [facility] Inhalant 500 mcg/2 ml EST DAILY RE SP, First [place] Solution nebulizer dose on 04/19/19 at [facility] budesonide suspension 2000, Un til System (PULMICORT) [...] 400 mg Medication administered onsite dextrose 5 0794-8248-63 04/19/2019 100 IntraVENous aborted 100 mL/hr, at Bon % - 0.45% 05:48:00 PM mL/h 100 mL/h r, [facility] NaCl EST IntraVENous, [place] infusion CONTINUOUS, Heal th Starting Sun System 04/19/19 at Inc 1749, Until [place] 04/26/19 at 1603 Medication administered onsite 1 ML heparin 04/19/2019 5000 SubCUTAneous active 5 ,000 Units, Bon heparin (porcine) 05:47:00 PM U SubCU TAneous, [facility] sodium, injection EST EVERY 12 Maggy rity porcine 5,000 Units HOURS, [facility] 5000 UNT/ML dose on [place] S ystem Injection 04/19/19 at [facility] heparin 1747, Until (porcine) Discontinued injection 5,000 Units Medication administered onsite Albuterol 0.833 MG/ML albuterol-ipratropium 04/19/2019 3 N ebulization aborted 3 mL, Nebulization, Bon / Ipratropium [place] (DUO-NEB) 2.5 MG-0.5 04:00:00 PM mL EVERY 4 HOURS RESP, [facility] 0.167 MG/ML Inhalant MG/3 ML EST F irst dose on Sun [place] Solution 04/19/19 at 1600, Until [facility] albuterol-ipratropium Dis continued
MODE System (DUO-NEB) 2.5 MG-0.5 OF D ELIVERY: Inc MG/3 ML Nebulizer Medication administered onsite vancomycin 04/19/2019 1000 IntraVENous completed 1,000 mg, Bon (VANCOCIN) 11:28:00 AM mg IntraVE Nous, [facility] 1,000 mg in EST NOW, 1 dose, [place] 0.9% sodium 04/19/19 at [facility] chloride 250 1129, at 125 System mL IVPB mL/hr Inc Medication administered onsite Albuterol 0.833 MG/ML albuterol-ipratropium 04/19/2019 3 N ebulization completed 3 mL, Bon / Ipratropium [place] (DUO-NEB) 2.5 MG-0.5 11:26:00 AM mL Nebulization, [facility] 0.167 MG/ML Inhalant MG/3 ML EST N OW, 1 dose, [place] Solution 04/19/19 at alth albuterol-ipratropium 112 6
MODE System (DUO-NEB) 2.5 MG-0.5 OF D ELIVERY: Inc MG/3 ML IPPB Medication administered onsite methylPREDNISolone [id number] 04/19/2019 125 IntraVENous comple mikel 125 mg, Bon (PF) (Solu-MEDROL) 11:25:00 AM mg IntraVENous, [facility] injection 125 mg EST NOW, 1 d ose, [place] 04/19/19 at [facility] 1126 System Inc Medication administered onsite sodium 2089-3690-22 04/19/2019 1000 IntraVENous completed 1,000 mL, at [...] [place] (MBP/ADV) 100 mL MBP 04/19/19 at [facility] 0952, at 200 System mL/hr Inc Medication [...] M on [place] Suspension MAGNESIA) 04/06/19 at [facility] magnesium 400 mg/5 mL 1131, Un til [...] Until Discontinued Medication administered onsite diatrizoate tiffani-diatrizoat 062900 04/04/2019 30 Oral compl eted 30 mL, [...] on Fri [place] Ointment ointment 04/03/19 at [facility] white 0900, Until System petrolatum Discontinued I nc (VASELINE) ointment Medication administered onsite Methylprednisolone methylPREDNISolone 04/02/2019 20 IntraVENous aborted 20 mg, Bon 40 MG/ML Injectable (PF) (SOLU-MEDROL) 09:00:00 PM mg IntraVENous, [facility] Solution injection 20 mg EST EVERY 12 Amercia methylPREDNISolone HOURS, [facility] (PF) (SOLU-MEDROL) dose ( after System injection 20 mg last Inc modification) on Sat04/02/19 at 2100, Until Discontinued Medication administered onsite potassium, [id number] 04/02/2019 2 Per G aborted 2 Packet, Per Bon sodium 06:00:00 PM {packet} Tube G Tube, 2 [facility] phosphates EST TIMES DAILY, C harity (NEUTRA-PHOS) First dose Health packet 2 (after last Syst em Packet modification) Inc on Sat04/02/19 at 1800, Until Discontinued Medication administered onsite 0.45% 8966-5896-95 04/01/2019 50 IntraVENous aborted 50 mL/hr, at Bon sodium 11:00:00 AM mL/h 50 mL/hr, S [facility] chloride EST IntraVENous, Maggy rity infusion CONTINUOUS, Heal Starting Sat System 04/01/19 at Inc 1100, Until 04/04/19 at 1834 Medication administered onsite dextrose 5 1942-3328-04 03/31/2019 50 IntraVENous aborted 50 mL/hr, at [...] DELIVE RY: Nebulizer Medication administered onsite potassium, [id number] 03/27/2019 2 Per G completed 2 Packet, Bon sodium 11:00:00 AM {packet} Tube Per G S [facility] phosphates EST Tube, 2 Charit y (NEUTRA-PHOS) TIMES Healt h packet 2 Packet DAILY, 6 System doses, Inc First dose on Sat03/27/19 at 1100, Last dose on Sat03/29/19 at 1800 Medication administered onsite dextrose 4371-3920-29 03/26/2019 50 IntraVENous aborted 50 mL/hr, at [...] aborted 3 mL, Nebulization, Bon / Ipratropium [place] (DUO-NEB) 2.5 MG-0.5 08:00:00 PM mL EVERY 6 HOURS RESP, [facility] 0.167 MG/ML Inhalant MG/3 ML EST F irst dose (after [place] Solution last modificatio n) on Health albuterol-ipratropium [facility] 03/25/19 at 2000, System (DUO-NEB) 2.5 MG-0.5 [...] at 100 mL/hr Medication administered onsite multivit-folic [id number] 03/25/2019 30 Per G aborted 30 mL, [...] aborted 3 mL, Nebulization, Bon / Ipratropium [place] (DUO-NEB) 2.5 MG-0.5 08:00:00 AM mL EVERY 4 HOURS RESP, [facility] 0.167 MG/ML Inhalant MG/3 ML EST F irst dose on Sat [place] Solution 03/25/19 at 0800 , Health albuterol-ipratropium Unt il System (DUO-NEB) 2.5 MG-0.5 Disc ontinued
MODE Inc MG/3 ML OF DELIVERY: Nebulizer Medication administered onsite 0.9% 4748-8014-54 03/25/2019 70 IntraVENous aborted 70 mL/hr, at [...] c mL MBP Medication administered onsite sodium 3147-6948-11 03/25/2019 1000 IntraVENous completed 1,000 mL, at Bon chloride 02:43:00 AM mL 1,000 mL/ hr, [facility] 0.9 % EST Administer [place] bolus over 60 Health infusion Minutes, System 1,000 mL IntraVENous, Inc 1 dose Medication administered onsite sodium 0239-9579-10 03/25/2019 1000 IntraVENous completed 1,000 mL, at Bon chloride 02:43:00 AM mL 1,000 mL/ hr, [facility] 0.9 % EST Administer [place] bolus over 60 Health infusion Minutes, System 1,000 mL IntraVENous, Inc 1 dose Medication administered onsite sodium 32162-581-59 03/25/2019 IntraVENous aborted 5-10 mL, Bon chloride 02:41:36 AM IntraVENo us, [facility] (NS) flush EST NEEDED, Maggy rity 5-10 mL Starting Sat03/25/19 at System 0241, Until Inc 04/06/19 at 2242, Line Patency Medication administered onsite lamotrigine 25 MG lamoTRIgine 03/18/2019 active TAKE 2 Bon Chewable Tablet (LAMICTAL) 25 mg 12:00:00 AM TABLETS BY [facility] lamoTRIgine rapid dissolve EST SARAH EVERY [place] (LAMICTAL) 25 mg tablet 12 [...] soln Pain or Inc solution Fever. multivitamin [id number] 03/17/2019 5 mL Per G Tube aborted 5 mL by Per G Bon (MULTI-DELYN, 12:00:00 AM Tube route [facility] WELLESSE) liqd EST daily. Maggy [employer] Amoxicillin 875 amoxicillin-cla 03/17/2019 1 Per [...] active 3 mL, Nebulization, Bon / Ipratropium [place] (DUO-NEB) 2.5 MG-0.5 08:00:00 PM mL EVERY [...] aborted 3 mL, Nebulization, Bon / Ipratropium [place] (DUO-NEB) 2.5 MG-0.5 12:00:00 PM mL EVERY 6 HOURS, First [facility] 0.167 MG/ML Inhalant MG/3 ML EST d ose on Sat03/11/19 [place] Solution at 1200, Until H ealth albuterol-ipratropium Dis continued
MODE System (DUO-NEB) 2.5 MG-0.5 OF D ELIVERY: Inc MG/3 ML Nebulizer Medication administered onsite multivitamin 5027-6573-44 03/11/2019 1 {tbl} Per G active 1 [...] 12 Maggy rity porcine 5,000 Units HOURS, [facility] 5000 UNT/ML dose on Sat S ystem Injection 03/11/19 at Inc heparin 1100, Until (porcine) Discontinued injection 5,000 Units Medication administered onsite Valproic valproic 03/11/2019 750 Per G active 750 mg, Per G Bon Acid 50 acid (as 11:00:00 AM mg Tube Tube, EVERY [facility] MG/ML Oral sodium salt) EST 12 TAMMY RS, [place] Solution (DEPAKENE) First dose on [facility] valproic 250 mg/5 mL 03/11 System acid [...] Fever, Mild Pain Medication administered onsite 0.9% 0564-6093-61 03/11/2019 50 IntraVENous active 50 mL/hr, at [...] EST ONCE, 1 dose, [place] 0.9% sodium [facility] 03/11/19 Health chloride 250 at 0645, at System mL IVPB 125 mL/hr Inc Medication administered onsite Acetaminophen acetaminophen 03/11/2019 975 Oral completed 975 mg, Bon 325 MG Oral (TYLENOL) 05:59:00 AM mg O ral, [facility] Tablet tablet 975 mg EST NOW, 1 Ch arity acetaminophen dose, Sat H ealth (TYLENOL) 03/11/19 System tablet 975 mg at 0559 Inc Medication administered onsite sodium 14551-483-72 03/11/2019 IntraVENous active 5-10 mL, Bon chloride 03:55:00 AM IntraVENo us, [facility] (NS) flush EST NEEDED, Maggy rity 5-10 mL Starting Sat03/11/19 at System 0355, Until Inc Discontinued, Line Patency Medication administered onsite dextrose 5 3328-8731-29 02/16/2019 50 IntraVENous aborted 50 mL/hr, at Bon % - 0.45% 10:00:00 PM mL/h 50 mL/hr , [facility] NaCl EST IntraVENous, [place] infusion CONTINUOUS, Starting Mon System 02/16/19 at [...] at 50 mL/hr Medication administered onsite haloperidol 7958-9921-43 02/16/2019 0.5 IntraMUSCular abort ed 0.5 mg, [...] aborted 3 mL, Nebulization, Bon / Ipratropium [place] (DUO-NEB) 2.5 MG-0.5 02:00:00 PM mL EVERY 6 HOURS RESP, [facility] 0.167 MG/ML Inhalant MG/3 ML EDT F irst dose on Sat [place] Solution 02/09/19 at 1400 , [facility] albuterol-ipratropium Unt il System (DUO-NEB) 2.5 MG-0.5 Disc ontinued
MODE Inc MG/3 ML OF DELIVERY: Nebulizer Medication administered onsite Budesonide budesonide 02/09/2019 500 Nebulization aborted 500 mcg, Bon 0.25 MG/ML (PULMICORT) 09:00:00 AM ug Nebulization, 2 TIMES [facility] Inhalant 500 mcg/2 ml EDT DAILY, F irst dose on [place] Solution nebulizer Sat 9 at 0900, [facility] budesonide suspension Until Sy stem (PULMICORT) Discontinued< [...] mg Discontinued Inc Medication administered onsite multivitamin 0798-6273-94 02/09/2019 1 Per G aborted 1 Tab, [...] g in 0.9% EDT EVERY 8 HOURS, [facility] sodium 21 doses, Health chloride First dose on Sy stem (MBP/ADV) 100 Mon 9 Inc mL MBP at 0331, Last dose on 02/15/19 at 1600, at 200 mL/hr Medication administered onsite sodium 81752-203-39 02/08/2019 IntraVENous aborted 5-40 mL, Bon chloride [...] HOURS, First [place] Solution (DEPAKENE) dose on [facility] valproic 250 mg/5 mL 02/08/19 at System [...] System tablet 650 mg Starting In c [place] 02/08/19 at 2216, Until Sat02/18/19 at 1755, Mild Pain, Fever Medication administered onsite sodium 33209-804-20 02/08/2019 IntraVENous aborted 5-40 mL, Bon chloride 10:16:04 PM IntraVENo us, [facility] (NS) flush EDT NEEDED, Maggy rity 5-40 mL Starting Sun Heal th 02/08/19 at System 2216, Until Inc 02/18/19 at 1755, Line Patency Medication administered onsite methylPREDNISolone 407321 02/08/2019 40 IntraVENous aborte d 40 mg, [...] (HUMALOG) Discontinued injection Medication administered onsite dextrose 9800-2455-67 02/08/2019 50 IntraVENous aborted 25 g (50 mL), Bon (D50) 09:51:46 PM mL IntraVENous, [facility] infusion EDT NEEDED, Carmela ty 25 g Starting [place] [facility] 02/08/19 at System 2151, Until Inc [...] aborted 3 mL, Nebulization, Bon / Ipratropium [place] (DUO-NEB) 2.5 MG-0.5 08:37:00 PM mL EVERY 4 HOURS RESP, [facility] 0.167 MG/ML Inhalant MG/3 ML EDT F irst dose on Sun [place] Solution 02/08/19 at 2037 , Health albuterol-ipratropium Unt il System (DUO-NEB) 2.5 MG-0.5 Disc ontinued
MODE Inc MG/3 ML OF DELIVERY: Nebulizer Medication administered onsite ondansetron 32647-145-60 02/08/2019 4 IntraVENous aborted 4 mg, Bon (ZOFRAN) 08:07:11 PM mg IntraVENo us, [facility] injection 4 EDT EVERY 6 HOURS [place] mg NEEDED, Health Starting [employer] System 02/08/19 at Inc 2007, Until Sat02/18/19 at 1755, Nausea or Vomiting Medication administered onsite 0.9% 4030-5644-15 02/08/2019 100 IntraVENous aborted 100 mL/hr, at Bon sodium 07:29:00 PM mL/h 100 mL/hr, [facility] chloride EDT IntraVENous, Maggy rity infusion CONTINUOUS, Heal th Starting Sun System 02/08/19 at Inc 1929, Until 02/16/19 at 2142 Medication administered onsite vancomycin 02/08/2019 1000 IntraVENous completed 1,000 mg, Bon (VANCOCIN) 06:48:00 PM mg IntraVE Nous, [facility] 1,000 mg in EDT ONCE, 1 dose, [place] 0.9% sodium [place] 02/08/19 Health chloride 250 at 1849, Sys tem mL IVPB Administer Inc over 120 Minutes Medication administered onsite cefepime 02/08/2019 2 g IntraVENous completed 2 g, Bon (MAXIPIME) 2 06:25:00 PM Intra VENous, [facility] g in 0.9% EDT NOW, 1 dose, Ch arity sodium [place] 02/08/19 Healt h chloride at 1825, at Syst em (MBP/ADV) 100 200 mL/hr I nc mL MBP Medication administered onsite Albuterol albuterol 02/08/2019 2.5 Nebulization completed 2.5 mg, Bon 0.83 MG/ML (PROVENTIL 04:47:00 PM mg N ebulization, [facility] Inhalant VENTOLIN) EDT NOW, 1 dose , [place] Solution nebulizer [place] 9 Health albuterol solution at System (PROVENTIL 2.5 mg 1647
MODE Inc VENTOLIN) OF DELIVERY: nebulizer Nebulizer solution 2.5 mg Medication administered onsite Albuterol albuterol 02/08/2019 2.5 Nebulization completed 2.5 mg, Bon 0.83 MG/ML (PROVENTIL 04:46:00 PM mg N ebulization, [facility] Inhalant VENTOLIN) EDT NOW, 1 dose , [place] Solution nebulizer [place] 9 Health albuterol solution at System (PROVENTIL 2.5 mg 1647
MODE Inc VENTOLIN) OF DELIVERY: nebulizer Nebulizer solution 2.5 mg Medication administered onsite sodium 11966-496-88 02/08/2019 IntraVENous aborted 5-10 mL, Bon chloride [...] soln Pain or Inc solution Fever. cholestyramine- [id number] 01/24/2019 4 g Oral aborted Take 1 Packet Bon aspartame 12:00:00 AM by mouth two [facility] (QUESTRAN EDT (2) times a Maggy rity LIGHT) 4 gram day. Health packet System Inc influenza [id number] 01/24/2019 0.5 IntraMUSCular aborted 0.5 mL by [...] solution 400 mg Medication administered onsite iopamidol 505017 01/15/2019 100 IntraVENous completed 100 mL, Bon (ISOVUE 09:00:00 AM mL IntraVENou s, [facility] 300) 61 % EDT RAD ONCE, 1 Maggy rity contrast dose, [facility] injection 01/15/19 at Syst em 100 mL 0900 Inc Medication administered onsite multivit-folic 744026 01/13/2019 30 Per G active 30 mL, [...] solution 600 mg Medication administered onsite potassium, [id number] 01/12/2019 1 {packet} Per G completed 1 [...] SP, [facility] [place] Solution nebulizer dose on [place] 01/11/19 Health budesonide suspension at 2000, Until System (PULMICORT) Discontinued< br>MODE Inc 500 mcg/2 ml OF DELIVERY: nebulizer Nebulizer suspension Medication administered onsite cinacalcet cinacalcet 01/11/2019 60 Oral active 60 mg, Oral, Bon 30 MG Oral (SENSIPAR) 09:00:00 AM mg D AILY, First [facility] Tablet tablet 60 mg EDT dose on Lemus n [place] cinacalcet 01/11/19 at [facility] (SENSIPAR) 0900, Until Sy stem tablet 60 mg Discontinued Inc Medication administered onsite multivitamin [id number] 01/11/2019 1 Per G aborted 1 Tab, Per G Bon (ONE A DAY) 09:00:00 AM {tbl} Tube Tube, DAILY, [facility] tablet 1 Tab EDT First dose o n [place] 01/11/19 Health at 0900, System Until Inc [...] 13 doses, I nc First dose on [facility] 01/10/19 at 2100, Last dose on [facility] 01/22/19 at 2100 Medication administered onsite Albuterol 0.833 MG/ML albuterol-ipratropium 01/10/2019 3 Nebu lization active 3 mL, Nebulization, Bon / Ipratropium [place] (DUO-NEB) 2.5 MG-0.5 08:00:00 PM mL EVERY 6 HOURS RESP, [facility] 0.167 MG/ML Inhalant MG/3 ML EDT F irst dose on [facility] [place] Solution 01/10/19 at 2000, Health albuterol-ipratropium [...] 21 Health doses, First System dose on [facility] Inc 01/10/19 at 1600, Last dose on [facility] 01/17/19 at 0800, at 25 mL/hr Medication administered onsite influenza [id number] 01/10/2019 0.5 IntraMUSCular completed 0.5 mL, Bon vaccine 01:08:20 PM mL IntraMUSCu lar, [facility] 2019-20 (65 EDT PRIOR TO [facility] ity yrs+)(PF) DISCHARGE, 1 He alth (FLUZONE dose, Starting S ystem HIGH-DOSE) [facility] 01/10/19 at Inc injection 1308, Until 0.5 [...] aborted 3 mL, Nebulization, Bon / Ipratropium [place] (DUO-NEB) 2.5 MG-0.5 01:00:00 PM mL EVERY 4 HOURS RESP, [facility] 0.167 MG/ML Inhalant MG/3 ML EDT F irst dose on [facility] [place] Solution 01/10/19 at 1300, [facility] albuterol-ipratropium Unt [facility] System (DUO-NEB) 2.5 MG-0.5 Disc ontinued
MODE Inc MG/3 ML OF DELIVERY: Nebulizer Medication administered onsite Budesonide budesonide 01/10/2019 500 Nebulization aborted 500 mcg, Bon 0.25 MG/ML (PULMICORT) 01:00:00 PM ug Nebulization, 2 TIMES [facility] Inhalant 500 mcg/2 ml EDT DAILY, F irst dose on [place] Solution nebulizer 01/10/19 at 1300, [facility] budesonide suspension Until Sy stem (PULMICORT) Discontinued< br>MODE Inc 500 mcg/2 ml OF DELIVERY: nebulizer Nebulizer suspension Medication administered onsite cholestyramine-aspartame 619324 01/10/2019 4 Oral active 4 g, Oral, [...] EDT NE EDED, [place] acetaminophen Starting Sa [facility] (TYLENOL) 01/10/19 at Syst em solution 650 mg 1252, Unt il Inc Discontinued, Fever, Mild Pain Medication administered onsite 0.9% 2804-3843-16 01/10/2019 50 IntraVENous aborted 50 mL/hr, at Bon sodium 11:28:00 AM mL/h 50 mL/hr, S ecours chloride EDT IntraVENous, Maggy rity infusion CONTINUOUS, Heal th Starting Sat System 01/10/19 at Inc 1128, Until 01/13/19 at 1730 Medication administered onsite 0.9% sodium 3991-0331-50 01/10/2019 completed 1 dose, Bon chloride 08:36:03 [...] ebulization completed 3 mL, Bon / Ipratropium [place] (DUO-NEB) 2.5 MG-0.5 07:31:00 AM mL Nebulization, [facility] 0.167 MG/ML Inhalant MG/3 ML EDT N OW, 1 dose, [place] Solution 01/10/19 at H ealth albuterol-ipratropium 073 1
MODE System (DUO-NEB) 2.5 MG-0.5 OF D ELIVERY: Inc MG/3 ML Nebulizer Medication administered onsite Albuterol 0.833 MG/ML albuterol-ipratropium 01/10/2019 3 N ebulization completed 3 mL, Bon / Ipratropium [place] (DUO-NEB) 2.5 MG-0.5 07:30:00 AM mL Nebulization, [facility] 0.167 MG/ML Inhalant MG/3 ML EDT N OW, 1 dose, [place] Solution 01/10/19 at H ealth albuterol-ipratropium 073 0
MODE System (DUO-NEB) 2.5 MG-0.5 OF D ELIVERY: Inc MG/3 ML Nebulizer Medication administered onsite methylPREDNISolone 874656 01/10/2019 125 IntraVENous comple mikel 125 mg, Bon (PF) (Solu-MEDROL) 07:30:00 AM mg IntraVENous, [facility] injection 125 mg EDT NOW, 1 d ose, [place] 01/10/19 Health at 0730 System Inc Medication administered onsite sodium 24155-817-90 01/10/2019 IntraVENous active 5-10 mL, Bon chloride 07:28:02 AM IntraVENo us, [facility] (NS) flush EDT NEEDED, Maggy rity 5-10 mL Starting Sat Heal th 01/10/19 at System 0728, Until Inc Discontinued, Line Patency Medication administered onsite cholestyramine-aspartame 063289 12/30/2018 4 g Oral aborted Take 1 [...] (12) hours for 4 days. potassium, sodium 467300 12/30/2018 1 Per G active 1 Packet [...] tablet System Inc multivitamin (ONE A DAY) 5238-9162 12/30/2018 1 Per G abo rted 1 [...] aborted 3 mL by Bon / Ipratropium [place] (DUO-NEB) 2.5 mg-0.5 12:00:00 AM mL Nebulization [facility] 0.167 MG/ML Inhalant mg/3 ml nebu EDT route every [place] Solution four (4) Health albuterol-ipratropium tammy rs as System (DUO-NEB) 2.5 mg-0.5 need ed for Inc mg/3 ml nebu Cough (wheezing, shortness of breath). Albuterol 0.833 MG/ML albuterol-ipratropium 12/30/2018 3 Nebu lization active 3 mL by Bon / Ipratropium [place] (DUO-NEB) 2.5 mg-0.5 12:00:00 AM mL Nebulization [...] rity Ipratropium 2.5 mg-0.5 six (6) Health [place] mg/3 ml nebu hours. Sy stem 0.167 MG/ML Inc Inhalant Solution albuterol-ip ratropium (DUO-NEB) 2.5 mg-0.5 mg/3 ml nebu Budesonide budesonide 500 Nebulization aborted 500 mcg by Bon 0.25 MG/ML (PULMICORT) ug Nebuliz ation [facility] Inhalant 0.5 mg/2 mL route two (2) [place] Solution nbsp times a day. [facility] budesonide System (PULMICORT) Inc 0.5 mg/2 mL nbsp chlorhexidin chlorhexidin Topical aborted Apply to Bon e gluconate e affected area [facility] 40 MG/ML (HIBICLENS) every oth er [place] Medicated 4 % liquid day. "[facility] Liquid Soap during shower System chlorhexidin time" Inc e (HIBICLENS) 4 % liquid Loratadine loratadine 10 Oral aborted Take 10 mg by Bon 10 MG Oral (CLARITIN) mg mouth da pierre. [facility] Tablet 10 mg tablet Take at [facility] loratadine bedtime. Healt h (CLARITIN) System 10 mg tablet Inc lamotrigine lamoTRIgine 50 Oral aborted Cecilio e 50 mg by Bon 25 MG Oral (LAMICTAL) mg mouth tw o (2) [facility] Tablet 25 mg tablet times a da y. [facility] lamoTRIgine Health (LAMICTAL) System 25 mg tablet Inc OTHER Oral aborted Take by Bon mouth daily. [facility] multivitamin [facility] System Inc Valproic valproate 750 Oral aborted [...] Ipratropium 2.5 mg-0.5 six (6) hours Health [place] mg/3 ml nebu as needed . System [...] System (TRANXENE) Inc 3.75 mg tablet multivitamin 0573-0952-35 1 Oral aborted T radhames 1 Tab by Bon (ONE A DAY) {tbl mouth daily. [facility] tablet } [employer] Inc Acetylcystei acetylcystei 4 mL Inhalation active [...] 1 % topical a day. 1 i formerly [facility] Health Cream silver cream ribbon- rig ht [...] on EXTRACTS mg mouth. [facility] (PROSTAT PO) [employer] System Inc Valproic valproic 750 Per G Tube aborted 750 mg by Per Bon Acid 50 acid, as mg G Tube route [facility] MG/ML Oral sodium salt, every twelve [place] Solution (DEPAKENE) (12) hours . Health valproic 250 mg/5 mL Syst em acid, as (5 mL) soln Inc sodium salt, oral (DEPAKENE) solution 250 mg/5 mL (5 mL) soln oral solution multivitamin 014369 5 mL Per G Tube aborted 5 mL by Per G Bon (MULTI-DELYN Tube route S ecours , WELLESSE) daily. [facility] [employer] Insurance Providers Payer name Policy type / Policy ID Covered Covered constitution party's Policy Plan Coverage type constitution party ID relationship to [employer] montes MEDICARE [id number] SP [id number] 34 MEDICAID [id number] SP [id number] MEDICARE [id number] SP [id number] 4 34 [place] [id number] PART A AND B 34 [place] OF [id number] [place] Shoot it!. MEDICARE [id number] SP [id number] MEDICAID OF Medicaid [id number] [place] Medicare [id number] [place] [id number] CENTER [place] [id number] PART A AND B 34 GENERIC Commerical [id number] COMMERCIAL GENERIC [id number] COMMERCIAL C1 [place] MED[place] [id number] PART A AND B C1 [place] [id number] CENTER [facility] MEDICARE [id number] PART A AND B 34 MEDICAID OF [id number] [place] [id number] C1 Problems, Conditions, and Diagnoses Code Display Name Description Problem Type Effective Data Dates Source(s) R21 Scrotal rash Scrotal rash [id number] 04/21/2019 [place] 12:00:00 AM RESPACE J96.21 Acute on chronic Acute on chronic [id number] 04/19/2019 [facility] respiratory failure respiratory failure 12:00:0 0 AM [facility] with hypoxia and with hypoxia and EST [facility] hypercapnia hypercapnia System Inc J44.1 COPD with acute COPD with acute [id number] 04/19/2019 [facility] exacerbation exacerbation 12:00:00 AM RESPACE J96.01 Acute hypoxemic Acute hypoxemic 95514914 03/25/2019 [facility] respiratory failure respiratory failure 12:00:0 0 AM RESPACE S81.801A Leg wound, right, Leg wound, right, 20616166 02/09/2019 [facility] initial encounter initial encounter 12:00:00 AM Numerate L89.612 Pressure injury of Pressure injury of 34316041 9 [facility] right heel, stage 2 right heel, stage 2 12:00:0 0 AM Numerate R06.02 SOB (shortness of SOB (shortness of [id number] 02/08/2019 [facility] breath) breath) 12:00:00 AM Numerate E87.1 Hyponatremia Hyponatremia 63062815 01/10/2019 [place] 12:00:00 AM Numerate J18.9 Pneumonia involving Pneumonia involving [id number] 019 [facility] right lung right lung 12:00:00 AM Numerate J96.01 Acute respiratory Acute respiratory 26424246 01/10/2019 [facility] failure with hypoxia failure with hypoxia 12:00 :00 AM Numerate F41.1 Generalized anxiety Generalized anxiety [id number] 019 [facility] disorder disorder 12:00:00 AM Numerate A41.9 Sepsis due to Sepsis due to [id number] 12/12/2018 [facility] undetermined undetermined 12:00:00 AM [facility] organism organism [facility] Inc J44.1 COPD exacerbation COPD exacerbation 21316051 11/08/2018 [facility] 12:00:00 AM [facility] Inc J18.9 Pneumonia Pneumonia 42908187 11/08/2018 [facility] 12:00:00 AM [facility] Inc R06.03 Acute respiratory Acute respiratory 85396268 11/08/2018 [facility] distress distress 12:00:00 AM [facility] Inc J44.9 COPD (chronic COPD (chronic 58070040 11/08/2018 [facility] obstructive obstructive 12:00:00 AM [facility] pulmonary disease) pulmonary disease) [facility] 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 other [facility] Hospital gastrointestinal gastrointestinal prosthetic devices, prosthetic devices, implants and grafts, implants and grafts, initial encounter initial encounter R06.02 Shortness of breath Shortness of breath Diagnosis 019 [facility] - Good 04:17:57 PM [facility] J69.0 Pneumonitis due to Pneumonitis due to Diagnosis 9 [facility] - Good inhalation of food inhalation of food 07:19:58 AM [employer]rian[employer] and vomit and vomit [facility] R53.83 Other fatigue Other fatigue Diagnosis 01/10/2019 [facility] - Good 07:19:58 AM [facility] J44.1 Chronic obstructive Chronic obstructive Diagnosis 019 [facility] - Good pulmonary disease pulmonary disease 07:09:47 PM [facility]rianism with (acute) with (acute) EDT Hospital exacerbation exacerbation J18.9 Pneumonia, Pneumonia, Diagnosis 11/07/2018 [facility] unspecified organism unspecified organism 07:16 :58 PM [facility] J44.9 Chronic obstructive Chronic obstructive Diagnosis 019 [facility] pulmonary disease, pulmonary disease, 07:16:58 PM Zoroastrianism unspecified unspecified [facility] [phone] gastroesophageal Diagnosis [facility] reflux disease [employer] [facility] 2320 2320 minor bacterial skin Diagnosis [facility] ([facility]GT[facility]) infections [employer] [facility] [id number] Generalized anxiety Diagnosis Bon [facility] disorder [place] [facility] [employer] [facility] 1765 1765 gastroesophageal Diagnosis [facility] reflux disease [place] [facility] [employer] [facility] Surgeries/Procedures Procedure Description Date Indications Data Source(s) CBC WITH AUTOMATED CBC WITH AUTOMATED Routine 05/07/2019 05/07/2019 Bon DIFF DIFF 4:50 AM EST 09:50:00 AM [facility] [employer] [facility] PHOSPHORUS PHOSPHORUS Routine 05/07/2019 05/07/2019 Bon 4:50 AM EST 09:50:00 AM [facility] [employer] [facility] METABOLIC PANEL, METABOLIC PANEL, Routine 05/07/2019 Bon COMPREHENSIVE COMPREHENSIVE 4:50 AM EST 09:50:00 AM [facility] MAGNESIUM MAGNESIUM Routine 05/07/2019 05/07/2019 Bon 4:50 AM EST 09:50:00 AM [facility] [employer] [facility] CBC WITH AUTOMATED CBC WITH AUTOMATED Routine 05/06/2019 05/06/2019 Bon DIFF DIFF 4:00 AM EST 09:00:00 AM [facility] [employer] [facility] METABOLIC PANEL, METABOLIC PANEL, Routine 05/06/2019 Bon COMPREHENSIVE COMPREHENSIVE 4:00 AM EST 09:00:00 AM [facility] MAGNESIUM MAGNESIUM Routine 05/06/2019 05/06/2019 Bon 4:00 AM EST 09:00:00 AM [facility] HC BLOOD GAS W HC BLOOD GAS W Routine 05/05/2019 020 Bon CALC O2/ARTERIAL CALC O2/ARTERIAL 11:40 AM 04:40 :00 PM [facility] MAGNESIUM MAGNESIUM Routine 05/05/2019 05/05/2019 Bon 4:13 AM EST 09:13:00 AM [facility] PT [employer] [facility] HC BLOOD GAS W HC BLOOD GAS W Routine 05/04/2019 020 Bon CALC O2/ARTERIAL CALC O2/ARTERIAL 5:49 AM EST 10 :49:00 AM [facility] [employer] [facility] XR CHEST SNGL V XR CHEST SNGL V Routine 05/04/201905/04 Bon 5:41 AM EST 10:41:30 AM [facility] [employer] [facility] CBC WITH AUTOMATED CBC WITH AUTOMATED Routine 05/04/2019 05/04/2019 Bon DIFF DIFF 4:12 AM EST 09:12:00 AM [facility] [employer] [facility] METABOLIC PANEL, METABOLIC PANEL, Routine 05/04/2019 Bon COMPREHENSIVE COMPREHENSIVE 4:12 AM EST 09:12:00 AM [facility] [employer] [facility] MAGNESIUM MAGNESIUM Routine 05/04/2019 05/04/2019 Bon 4:12 AM EST 09:12:00 AM [facility] XR CHEST SNGL V XR CHEST SNGL V Routine 05/03/201905/03 Bon 6:19 AM EST 11:19:43 AM [facility] [employer] [facility] HC BLOOD GAS W HC BLOOD GAS W Routine 05/03/2019 020 Bon CALC O2/ARTERIAL CALC O2/ARTERIAL 5:56 AM EST 10 :56:00 AM [facility] [employer] [facility] CBC WITH AUTOMATED CBC WITH AUTOMATED Routine 05/03/2019 05/03/2019 Bon DIFF DIFF 4:15 AM EST 09:15:00 AM [facility] [employer] [facility] PHOSPHORUS PHOSPHORUS Routine 05/03/2019 05/03/2019 Bon 4:15 AM EST 09:15:00 AM [facility] [employer] [facility] METABOLIC PANEL, METABOLIC PANEL, Routine 05/03/2019 Bon COMPREHENSIVE COMPREHENSIVE 4:15 AM EST 09:15:00 AM [facility] [employer] [facility] MAGNESIUM MAGNESIUM Routine 05/03/2019 05/03/2019 Bon 4:15 AM EST 09:15:00 AM [facility] HC BLOOD GAS W HC BLOOD GAS W Routine 05/02/2019 020 Bon CALC O2/ARTERIAL CALC O2/ARTERIAL 5:50 AM EST 10 :50:00 AM [facility] [employer] [facility] XR CHEST SNGL V XR CHEST SNGL V Routine 05/02/201905/02 Bon 5:43 AM EST 10:43:39 AM [facility] CBC WITH AUTOMATED CBC WITH AUTOMATED Routine 05/02/2019 05/02/2019 Bon DIFF DIFF 4:30 AM EST 09:30:00 [facility] PHOSPHORUS Routine 05/02/2019 05/02/2019 Bon 4:30 AM EST 09:30:00 AM [facility] METABOLIC PANEL, METABOLIC PANEL, Routine 05/02/2019 Bon COMPREHENSIVE COMPREHENSIVE 4:30 AM EST 09:30:00 AM [facility] MAGNESIUM MAGNESIUM Routine 05/02/2019 05/02/2019 Bon 4:30 AM EST 09:30:00 [facility] CHEST PORT XR CHEST PORT STAT 05/01/2019 0 Bon 3:49 PM EST 08:49:39 [facility] TRACHEOSTOMY TRACHEOSTOMY 05/01/2019 FAILURE 05/01/2019 Bon 1:07 PM EST TO THRIVE 06:07:00 PM [facility] 05/01/2019 Healt h 08:12:00 PM Syst em EST Inc LAPAROTOMY LAPAROTOMY 05/01/2019 FAILURE 05/01/2019 Bon EXPLORATORY EXPLORATORY 1:07 PM EST TO THRIVE 06:07:00 [facility] Healt h 08:12:00 PM Syst em EST Inc PROTHROMBIN TIME + PROTHROMBIN TIME + Routine 05/01/2019 05/01/2019 Bon INR INR 8:07 AM EST 01:07:00 PM [facility] CBC WITH AUTOMATED CBC WITH AUTOMATED Routine 05/01/2019 05/01/2019 Bon DIFF DIFF 8:07 AM EST 01:07:00 PM [facility] HC PARTIAL HC PARTIAL Routine 05/01/2019 05/01/2019 Bon THROMBOPLASTIN/ THROMBOPLASTIN/ 8:07 AM EST 01:0 7:00 PM [facility] PTT PTT [facility] METABOLIC PANEL, METABOLIC PANEL, Routine 05/01/2019 Bon COMPREHENSIVE COMPREHENSIVE 8:07 AM EST 01:07:00 [facility] MAGNESIUM MAGNESIUM Routine 05/01/2019 05/01/2019 Bon 8:07 AM EST 01:07:00 PM [facility] Inc HC BLOOD GAS W HC BLOOD GAS W Routine 05/01/2019 020 Bon CALC O2/ARTERIAL CALC O2/ARTERIAL 6:01 AM EST 11 :01:00 AM [facility] [employer] [facility] XR CHEST SNGL V XR CHEST SNGL V Routine 05/01/201905/01 Bon 4:59 AM EST 09:59:00 AM [facility] [employer] [facility] XR CHEST SNGL V XR CHEST SNGL V STAT 04/30/201904/30 Bon 12:55 PM 05:55:[address] [facility] CBC W/O DIFF CBC W/O DIFF Routine 04/30/2019 04/30/2019 Bon 4:23 AM EST 09:23:00 AM [facility] HC RENAL FUNCTION HC RENAL FUNCTION Routine 04/30/2019 0 04/30/2019 Bon PANEL PANEL 4:23 AM EST 09:23:00 AM [facility] [employer] [facility] MAGNESIUM MAGNESIUM Routine 04/30/2019 04/30/2019 Bon 4:23 AM EST 09:23:00 AM [facility] [employer] [facility] XR GASTROGRAFFIN XR GASTROGRAFFIN Routine 04/29/2019 Bon UPPER GI UPPER GI 9:57 AM EST 02:57:00 PM [facility] [employer] [facility] CBC W/O DIFF CBC W/O DIFF Routine 04/29/2019 04/29/2019 Bon 6:45 AM EST 11:45:00 AM [facility] [employer] [facility] HC BLOOD GAS W HC BLOOD GAS W Routine 04/29/2019 020 Bon CALC O2/ARTERIAL CALC O2/ARTERIAL 6:11 AM EST 11 :11:00 AM [facility] [employer] [facility] XR CHEST SNGL V XR CHEST SNGL V Routine 04/29/201904/29 Bon 5:07 AM EST 10:07:01 AM [facility] [employer] [facility] PHOSPHORUS PHOSPHORUS Routine 04/29/2019 04/29/2019 Bon 3:45 AM EST 08:45:00 AM [facility] [employer] [facility] METABOLIC PANEL, METABOLIC PANEL, Routine 04/29/2019 Bon BASIC BASIC 3:45 AM EST 08:45:00 AM [facility] MAGNESIUM MAGNESIUM Routine 04/29/2019 04/29/2019 Bon 3:45 AM EST 08:45:00 AM [facility] [employer] ALBUMIN ALBUMIN Routine 04/29/2019 04/29/2019 Jeff n 3:45 AM EST 08:45:00 AM [facility] [employer] BLOOD GAS, BLOOD GAS, Routine 04/28/2019 04/28/2019 Bon ARTERIAL ARTERIAL 2:50 PM EST 07:50:00 PM [facility] [employer] XR ABD (KUB) XR ABD (KUB) Routine 04/28/2019 04/28/2019 Bon 2:07 PM EST 07:07:27 PM [facility] [employer] HC BLOOD GAS W HC BLOOD GAS W Routine 04/28/2019 020 Bon CALC O2/ARTERIAL CALC O2/ARTERIAL 6:23 AM EST 11 :23:00 AM [facility] [employer] XR CHEST SNGL V XR CHEST SNGL V Routine 04/28/201904/28 Bon 5:28 AM EST 10:28:33 AM [facility] [employer] CBC WITH AUTOMATED CBC WITH AUTOMATED Routine 04/28/2019 04/28/2019 Bon DIFF DIFF 3:29 AM EST 08:29:00 AM [facility] [employer] METABOLIC PANEL, METABOLIC PANEL, Routine 04/28/2019 Bon COMPREHENSIVE COMPREHENSIVE 3:29 AM EST 08:29:00 AM [facility] [employer] MAGNESIUM MAGNESIUM Routine 04/28/2019 04/28/2019 Bon 3:29 AM EST 08:29:00 AM [facility] [employer] HC CDIFF TOXIN AMP HC CDIFF TOXIN AMP Routine 04/27/2019 04/27/2019 Bon PROB PROB 9:15 AM EST 02:15:00 PM [facility] [employer] CBC W/O DIFF CBC W/O DIFF Routine 04/27/2019 04/27/2019 Bon 4:20 AM EST 09:20:00 AM [facility] [employer] HC RENAL FUNCTION HC RENAL FUNCTION Routine 04/27/2019 0 04/27/2019 Bon PANEL PANEL 4:20 AM EST 09:20:00 AM [facility] [employer] MAGNESIUM MAGNESIUM Routine 04/27/2019 04/27/2019 Bon 4:20 AM EST 09:20:00 AM [facility] [employer] HC CULTURE HC CULTURE Routine 04/26/2019 04/26/2019 Bon RESPIRATORY RESPIRATORY 5:00 PM EST 10:00:00 PM [facility] PT [employer] [facility] HC BLOOD GAS W HC BLOOD GAS W Routine 04/26/2019 020 Bon CALC O2/ARTERIAL CALC O2/ARTERIAL 4:26 PM EST 09 :26:00 PM [facility] [employer] [facility] HC LACTIC ACID HC LACTIC ACID Routine 04/26/2019 020 Bon 4:50 AM EST 09:50:00 AM [facility] [employer] [facility] CBC W/O DIFF CBC W/O DIFF Routine 04/26/2019 04/26/2019 Bon 4:30 AM EST 09:30:00 AM [facility] [employer] [facility] HC RENAL FUNCTION HC RENAL FUNCTION Routine 04/26/2019 0 04/26/2019 Bon PANEL PANEL 4:30 AM EST 09:30:00 AM [facility] [employer] [facility] MAGNESIUM MAGNESIUM Routine 04/26/2019 04/26/2019 Bon 4:30 AM EST 09:30:00 AM [facility] [employer] [facility] BLOOD GAS, BLOOD GAS, Routine 04/25/2019 04/26/2019 Bon ARTERIAL ARTERIAL 10:14 PM 03:14:00 AM S ecours [facility] [employer] [facility] XR CHEST PORT XR CHEST PORT Routine 04/25/2019 0 Bon 10:10 PM 03:10:16 AM Sec [facility] [employer] [facility] DUPLEX LOWER EXT DUPLEX LOWER EXT Routine 04/25/201903/2020 Bon VENOUS LEFT VENOUS LEFT 9:15 PM EST 02:15:02 AM [facility] [employer] [facility] DUPLEX UPPER EXT DUPLEX UPPER EXT Routine 04/25/201903/2020 Bon VENOUS RIGHT VENOUS RIGHT 9:01 PM EST 02:01:59 A M [facility] PT [employer] [facility] EKG, 12 LEAD, EKG, 12 LEAD, Routine 04/25/2019 0 Bon INITIAL INITIAL 8:51 PM EST 01:51:22 AM [facility] PT [employer] [facility] XR CHEST SNGL V XR CHEST SNGL V STAT 04/25/201904/26 Bon 7:29 PM EST 12:29:53 AM [facility] [employer] [facility] HC BLOOD GAS W HC BLOOD GAS W Routine 04/25/2019 020 Bon CALC O2/ARTERIAL CALC O2/ARTERIAL 6:20 PM EST 11 :20:00 PM [employer] HC CDIFF TOXIN AMP HC CDIFF TOXIN AMP Routine 04/25/2019 04/25/2019 Bon PROB PROB 5:15 PM EST 10:15:00 PM [employer] HC CULTURE BLOOD HC CULTURE BLOOD Routine 04/25/201902/2020 Bon 12:10 PM 05:10:00 PM Sec ours [facility] [employer] CBC WITH AUTOMATED CBC WITH AUTOMATED STAT 04/25/2019 04/25/2019 Bon DIFF DIFF 12:10 PM 05:10:00 PM Sec ours [facility] [employer] HC CULTURE BLOOD HC CULTURE BLOOD Routine 04/25/201902/2020 Bon 12:05 PM 05:05:00 PM Sec ours [facility] [employer] URINALYSIS W/ RFLX URINALYSIS W/ RFLX Routine 04/25/2019 04/25/2019 Bon MICROSCOPIC MICROSCOPIC 11:47 AM 04:47:00 PM [facility] [employer] CULTURE, URINE CULTURE, URINE Routine 04/25/2019 020 Bon 11:47 AM 04:47:00 PM Sec ours [facility] [employer] HC VANCOMYCIN HC VANCOMYCIN Routine 04/25/2019 0 Bon TROUGH TROUGH 5:24 AM EST 10:24:00 [facility] RE[facility] FUNCTION HC RENAL FUNCTION Routine 04/25/2019 0 04/25/2019 Bon PANEL PANEL 5:24 AM EST 10:24:00 AM [employer] HC EOSINOPHILS HC EOSINOPHILS Routine 04/24/2019 020 Bon URINE URINE 6:30 PM EST 11:30:00 PM [employer] HC SODIUM URINE HC SODIUM URINE STAT 04/24/201904/24 Bon 6:30 PM EST 11:30:00 PM [employer] EEG EPILEPSY EEG EPILEPSY Routine 04/24/2019 04/24/2019 Bon MONITOR 8-24 HR MONITOR 8-24 HR 7:54 AM EST 12:5 4:29 PM [facility] W/VIDEO W/VIDEO [employer] EEG DIGITAL EEG DIGITAL Routine 04/24/2019 04/24/2019 Bon ANALYSIS ANALYSIS 7:54 AM EST 12:54:29 PM [employer] URIC ACID URIC ACID Blood in 04/24/2019 04/24/2019 Bon Lab 6:35 AM EST 11:35:00 AM [employer] HC RENAL FUNCTION HC RENAL FUNCTION Routine 04/24/2019 0 04/24/2019 Bon PANEL PANEL 6:35 AM EST 11:35:00 AM [employer] CK CK Blood in 04/24/2019 04/24/2019 B on Lab 6:35 AM EST 11:35:00 AM [employer] PTH INTACT PTH INTACT Routine 04/24/2019 04/24/2019 Bon 6:30 AM EST 11:30:00 AM [employer] SED RATE, SED RATE, STAT 04/23/2019 04/24/2019 Bon AUTOMATED AUTOMATED 7:45 PM EST 12:45:00 AM [employer] C REACTIVE C REACTIVE STAT 04/23/2019 04/24/2019 Bon PROTEIN, QT PROTEIN, QT 7:45 PM EST 12:45:00 AM [employer] XR CHEST PORT XR CHEST PORT Routine 04/23/2019 0 Bon 6:45 PM EST 11:45:55 PM [employer] URINALYSIS W/ RFLX URINALYSIS W/ RFLX Routine 04/23/2019 04/23/2019 Bon MICROSCOPIC MICROSCOPIC 11:00 AM 04:00:00 PM [employer] HC EOSINOPHILS HC EOSINOPHILS Routine 04/23/2019 020 Bon URINE URINE 11:00 AM 04:00:00 PM [facility] [employer] HC SODIUM URINE HC SODIUM URINE STAT 04/23/201904/23 Bon 11:00 AM 04:00:00 PM [facility] [employer] US RETROPERITONEUM US RETROPERITONEUM Routine 04/23/2019 04/23/2019 Bon COMP COMP 10:48 AM 03:48:37 PM [employer] URIC ACID URIC ACID Blood in 04/23/2019 04/23/2019 Bon Lab 7:19 AM EST 12:19:00 PM [employer] TSH 3RD GENERATION TSH 3RD GENERATION Blood in 04/23/2019 04/23/2019 Bon Lab 7:19 AM EST 12:19:00 PM [facility] [employer] [facility] METABOLIC PANEL, METABOLIC PANEL, Routine 04/23/201912/2019 Bon BASIC BASIC 7:19 AM EST 12:19:00 PM [facility] [employer] [facility] CK CK Blood in 04/23/2019 04/23/2019 B on Lab 7:19 AM EST 12:19:00 PM [facility] [employer] DUPLEX UPPER EXT DUPLEX UPPER EXT Routine 04/22/201912/2019 Bon VENOUS LEFT VENOUS LEFT 10:35 PM 03:35:25 AM [facility] [employer] [facility] HC VANCOMYCIN HC VANCOMYCIN Timed 04/22/2019 0 Bon TROUGH TROUGH 11:50 AM 04:50:00 PM Sec [facility] [employer] [facility] CT CHEST ABD PELV CT CHEST ABD PELV Routine 04/20/2019 0 04/21/2019 Bon WO CONT WO CONT 9:04 PM EST 02:04:28 AM [facility] HC CULTURE BLOOD HC CULTURE BLOOD STAT 04/20/201909/2019 Bon 2:47 PM EST 07:47:00 PM [facility] [employer] [facility] HC CULTURE BLOOD HC CULTURE BLOOD STAT 04/20/201909/2019 Bon 2:40 PM EST 07:40:00 PM [facility] [employer] [facility] CBC WITH AUTOMATED CBC WITH AUTOMATED Routine 04/20/2019 04/20/2019 Bon DIFF DIFF 4:30 AM EST 09:30:00 AM [facility] HC TROPONIN I HC TROPONIN I Routine 04/20/2019 0 Bon QUANT QUANT 4:30 AM EST 09:30:00 AM [facility] [employer] [facility] HC RENAL FUNCTION HC RENAL FUNCTION Routine 04/20/2019 0 04/20/2019 Bon PANEL PANEL 4:30 AM EST 09:30:00 AM [facility] [employer] MAGNESIUM MAGNESIUM Routine 04/20/2019 04/20/2019 Bon 4:30 AM EST 09:30:00 AM [facility] [employer] [facility] BLOOD GAS, BLOOD GAS, Routine 04/19/2019 04/19/2019 Bon ARTERIAL ARTERIAL 4:59 PM EST 09:59:00 PM [facility] URINALYSIS W/ RFLX URINALYSIS W/ RFLX STAT 04/19/2019 04/19/2019 Bon MICROSCOPIC MICROSCOPIC 4:56 PM EST 09:56:00 PM [facility] RT--BIPAP RT--BIPAP Routine 04/19/2019 04/19/2019 Bon 2:45 PM EST 07:45:44 PM [facility] HC LACTIC ACID HC LACTIC ACID STAT 04/19/2019 020 Bon 2:20 PM EST 07:20:00 PM [facility] HC BLOOD GAS W HC BLOOD GAS W Routine 04/19/2019 020 Bon CALC O2/ARTERIAL CALC O2/ARTERIAL 10:45 AM 03:45 :00 PM [facility] XR CHEST PORT XR CHEST PORT STAT 04/19/2019 0 Bon 10:37 AM 03:37:09 PM [facility] HC CULTURE BLOOD HC CULTURE BLOOD STAT 04/19/201908/2019 Bon 10:15 AM 03:15:[address] [facility] CBC WITH AUTOMATED CBC WITH AUTOMATED STAT 04/19/2019 04/19/2019 Bon DIFF DIFF 10:15 AM 03:15:00 PM [facility] HC TROPONIN I HC TROPONIN I STAT 04/19/2019 0 Bon QUANT QUANT Blood in 10:15 AM 03:15:00 PM [facility] METABOLIC PANEL, METABOLIC PANEL, STAT 04/19/201908/2019 Bon COMPREHENSIVE COMPREHENSIVE 10:15 AM 03:15:00 PM [facility] HC LACTIC ACID HC LACTIC ACID STAT 04/19/2019 020 Bon 10:15 AM 03:15:00 PM [facility] HC CULTURE BLOOD HC CULTURE BLOOD STAT 04/19/201908/2019 Bon 10:05 AM 03:05:00 PM [facility] EKG, 12 LEAD, EKG, 12 LEAD, STAT 04/19/2019 0 Bon INITIAL INITIAL 9:58 AM EST 02:58:00 PM [facility] NON-INVASIVE NON-INVASIVE STAT 04/19/2019 04/19/2019 Bon POSITIVE PRESSURE POSITIVE PRESSURE 9:51 AM EST 02:51:55 PM [facility] VENTILATION VENTILATION [employer] SEPSIS BUNDLE SEPSIS BUNDLE STAT 04/19/2019 0 Bon INITIATED IN ED INITIATED IN ED 9:51 AM EST 02:5 1:18 PM [employer] EEG EEG 04/19/2019 04/19/2019 Jeff n 9:47 AM EST 02:47:00 PM [employer] GLUCOSE, POC GLUCOSE, POC Routine 04/06/2019 04/06/2019 Bon 4:39 PM EST 09:39:00 PM [employer] GLUCOSE, POC GLUCOSE, POC Routine 04/06/2019 04/06/2019 Bon 12:06 PM 05:06:00 PM [facility] [employer] XR CHEST PORT XR CHEST PORT Routine 04/06/2019 9 Bon 7:15 AM EST 12:15:00 PM [employer] GLUCOSE, POC GLUCOSE, POC Routine 04/06/2019 04/06/2019 Bon 7:07 AM EST 12:07:00 PM [employer] GLUCOSE, POC GLUCOSE, POC Routine 04/06/2019 04/06/2019 Bon 6:26 AM EST 11:26:00 AM [employer] CBC WITH AUTOMATED CBC WITH AUTOMATED Routine 04/06/2019 04/06/2019 Bon DIFF DIFF 5:18 AM EST 10:18:00 AM [employer] URIC ACID URIC ACID Routine 04/06/2019 04/06/2019 Bon 5:18 AM EST 10:18:00 AM [employer] RENAL FUNCTION RENAL FUNCTION Routine 04/06/2019 019 Bon PANEL PANEL 5:18 AM EST 10:18:00 AM [employer] MAGNESIUM MAGNESIUM Routine 04/06/2019 04/06/2019 Bon 5:18 AM EST 10:18:00 AM [employer] GLUCOSE, POC GLUCOSE, POC Routine 04/06/2019 04/06/2019 Bon 12:31 AM 05:31:00 AM [facility] [employer] GLUCOSE, POC GLUCOSE, POC Routine 04/05/2019 04/05/2019 Bon 4:14 PM EST 09:14:00 PM [employer] GLUCOSE, POC GLUCOSE, POC Routine 04/05/2019 04/05/2019 Bon 11:54 AM 04:54:00 PM [facility] [employer] GLUCOSE, POC GLUCOSE, POC Routine 04/05/2019 04/05/2019 Bon 6:22 AM EST 11:22:00 AM [employer] CBC WITH AUTOMATED CBC WITH AUTOMATED Routine 04/05/2019 04/05/2019 Bon DIFF DIFF 5:34 AM EST 10:34:00 AM [employer] HC RENAL FUNCTION HC RENAL FUNCTION Routine 04/05/2019 1 06/06/2018 Bon PANEL PANEL 5:34 AM EST 10:34:00 AM [employer] MAGNESIUM MAGNESIUM Routine 04/05/2019 04/05/2019 Bon 5:34 AM EST 10:34:00 AM [employer] HC GLUCOSE POCT HC GLUCOSE POCT Routine 04/04/201904/05 Bon 11:33 PM 04:33:00 AM [facility] [employer] XR ABD (KUB) XR ABD (KUB) Routine 04/04/2019 04/05/2019 Bon 8:57 PM EST 01:57:04 AM [employer] GLUCOSE, POC GLUCOSE, POC Routine 04/04/2019 04/04/2019 Bon 4:05 PM EST 09:05:00 PM [employer] GLUCOSE, POC GLUCOSE, POC Routine 04/04/2019 04/04/2019 Bon 11:32 AM 04:32:00 PM [facility] [employer] CBC WITH AUTOMATED CBC WITH AUTOMATED Routine 04/04/2019 04/04/2019 Bon DIFF DIFF 7:15 AM EST 12:15:00 PM [employer] HC RENAL FUNCTION HC RENAL FUNCTION Routine 04/04/2019 1 06/05/2018 Bon PANEL PANEL 7:15 AM EST 12:15:00 PM [employer] MAGNESIUM MAGNESIUM Routine 04/04/2019 04/04/2019 Bon 7:15 AM EST 12:15:00 PM [employer] GLUCOSE, POC GLUCOSE, POC Routine 04/04/2019 04/04/2019 Bon 6:21 AM EST 11:21:00 AM [employer] HC GLUCOSE POCT HC GLUCOSE POCT Routine 04/04/201904/04 Bon 12:25 AM 05:25:00 AM [facility] [employer] GLUCOSE, POC GLUCOSE, POC Routine 04/03/2019 04/03/2019 Bon 4:06 PM EST 09:06:00 PM [employer] GLUCOSE, POC GLUCOSE, POC Routine 04/03/2019 04/03/2019 Bon 12:09 PM 05:09:00 PM [employer] CBC WITH AUTOMATED CBC WITH AUTOMATED Routine 04/03/2019 04/03/2019 Bon DIFF DIFF 6:30 AM EST 11:30:00 AM [employer] HC RENAL FUNCTION HC RENAL FUNCTION Routine 04/03/2019 1 06/04/2018 Bon PANEL PANEL 6:30 AM EST 11:30:00 AM [employer] MAGNESIUM MAGNESIUM Routine 04/03/2019 04/03/2019 Bon 6:30 AM EST 11:30:00 AM [employer] HC GLUCOSE POCT HC GLUCOSE POCT Routine 04/03/201904/03 Bon 6:16 AM EST 11:16:00 AM [employer] GLUCOSE, POC GLUCOSE, POC Routine 04/02/2019 04/03/2019 Bon 11:59 PM 04:59:00 AM [employer] GLUCOSE, POC GLUCOSE, POC Routine 04/02/2019 04/02/2019 Bon 4:30 PM EST 09:30:00 PM [employer] XR ABD (KUB) XR ABD (KUB) STAT 04/02/2019 04/02/2019 Bon 3:30 PM EST 08:30:14 PM [employer] GLUCOSE, POC GLUCOSE, POC Routine 04/02/2019 04/02/2019 Bon 12:33 PM 05:33:00 PM Sec [employer] GLUCOSE, POC GLUCOSE, POC Routine 04/02/2019 04/02/2019 Bon 6:37 AM EST 11:37:00 AM [employer] CBC WITH AUTOMATED CBC WITH AUTOMATED Routine 04/02/2019 04/02/2019 Bon DIFF DIFF 5:59 AM EST 10:59:00 AM [employer] HC RENAL FUNCTION HC RENAL FUNCTION Routine 04/02/2019 1 06/03/2018 Bon PANEL PANEL 5:59 AM EST 10:59:00 AM [employer] MAGNESIUM MAGNESIUM Routine 04/02/2019 04/02/2019 Bon 5:59 AM EST 10:59:00 AM [employer] HC GLUCOSE POCT HC GLUCOSE POCT Routine 04/02/201904/02 Bon 12:56 AM 05:56:00 AM Sec ours [employer] GLUCOSE, POC GLUCOSE, POC Routine 04/01/2019 04/01/2019 Bon 4:00 PM EST 09:00:00 PM [employer] ESOPHAGOGASTRODUOD ESOPHAGOGASTRODUOD 04/01/2019 endoscopi 04/01/2019 Bon ENOSCOPY (EGD) ENOSCOPY (EGD) 1:13 PM EST c 06:13: 00 PM [facility] replaceme EST - Charit y nt of J 04/01/2019 Healt h tube 07:28:00 PM [employer] Inc GLUCOSE, POC GLUCOSE, POC Routine 04/01/2019 04/01/2019 Bon 11:53 AM 04:53:00 PM Sec eugene [employer] HC BLOOD GAS W HC BLOOD GAS W Routine 04/01/2019 019 Bon CALC O2/ARTERIAL CALC O2/ARTERIAL 10:12 AM 03:12 :00 PM [employer] IR PICC INSERT WO IR PICC INSERT WO Routine 04/01/2019 1 06/02/2018 Bon PORT OVER 5 YEARS PORT OVER 5 YEARS 8:49 AM EST 01:49:26 PM [facility] WO IMG WO IMG [employer] GLUCOSE, POC GLUCOSE, POC Routine 04/01/2019 04/01/2019 Bon 6:30 AM EST 11:30:00 AM [employer] CBC WITH AUTOMATED CBC WITH AUTOMATED Routine 04/01/2019 04/01/2019 Bon DIFF DIFF 6:00 AM EST 11:00:00 AM [employer] HC RENAL FUNCTION HC RENAL FUNCTION Routine 04/01/2019 1 06/02/2018 Bon PANEL PANEL 6:00 AM EST 11:00:00 AM [employer] MAGNESIUM MAGNESIUM Routine 04/01/2019 04/01/2019 Bon 6:00 AM EST 11:00:00 AM [employer] HC GLUCOSE POCT HC GLUCOSE POCT Routine 04/01/201904/01 Bon 12:49 AM 05:49:00 AM [facility]ene [employer] GLUCOSE, POC GLUCOSE, POC Routine 03/31/2019 03/31/2019 Bon 4:42 PM EST 09:42:00 PM [employer] PROTHROMBIN TIME + PROTHROMBIN TIME + Routine 03/31/2019 03/31/2019 Bon INR INR 10:15 AM 03:15:00 PM [facility] [employer] GLUCOSE, POC GLUCOSE, POC Routine 03/31/2019 03/31/2019 Bon 6:19 AM EST 11:19:00 AM [employer] CBC WITH AUTOMATED CBC WITH AUTOMATED Routine 03/31/2019 03/31/2019 Bon DIFF DIFF 5:10 AM EST 10:10:00 AM [employer] HC RENAL FUNCTION HC RENAL FUNCTION Routine 03/31/2019 1 06/01/2018 Bon PANEL PANEL 5:10 AM EST 10:10:00 AM [employer] MAGNESIUM MAGNESIUM Routine 03/31/2019 03/31/2019 Bon 5:10 AM EST 10:10:00 AM [employer] HC GLUCOSE POCT HC GLUCOSE POCT Routine 03/31/201903/31 Bon 12:40 AM 05:40:00 AM [facility] [employer] GLUCOSE, POC GLUCOSE, POC Routine 03/30/2019 03/30/2019 Bon 5:00 PM EST 10:00:00 PM [employer] GLUCOSE, POC GLUCOSE, POC Routine 03/30/2019 03/30/2019 Bon 11:40 AM 04:40:00 PM [employer] GLUCOSE, POC GLUCOSE, POC Routine 03/30/2019 03/30/2019 Bon 6:56 AM EST 11:56:00 AM [employer] CBC WITH AUTOMATED CBC WITH AUTOMATED Routine 03/30/2019 03/30/2019 Bon DIFF DIFF 5:19 AM EST 10:19:00 AM [employer] HC RENAL FUNCTION HC RENAL FUNCTION Routine 03/30/2019 1 05/31/2018 Bon PANEL PANEL 5:19 AM EST 10:19:00 AM [employer] MAGNESIUM MAGNESIUM Routine 03/30/2019 03/30/2019 Bon 5:19 AM EST 10:19:00 AM [employer] HC GLUCOSE POCT HC GLUCOSE POCT Routine 03/30/201903/30 Bon 12:17 AM 05:17:00 AM [employer] GLUCOSE, POC GLUCOSE, POC Routine 03/29/2019 03/29/2019 Bon 11:35 AM 04:35:00 PM [employer] GLUCOSE, POC GLUCOSE, POC Routine 03/29/2019 03/29/2019 Bon 6:17 AM EST 11:17:00 AM [employer] CBC WITH AUTOMATED CBC WITH AUTOMATED Routine 03/29/2019 03/29/2019 Bon DIFF DIFF 4:25 AM EST 09:25:00 AM [employer] HC RENAL FUNCTION HC RENAL FUNCTION Routine 03/29/2019 1 05/30/2018 Bon PANEL PANEL 4:25 AM EST 09:25:00 AM [employer] MAGNESIUM MAGNESIUM Routine 03/29/2019 03/29/2019 Bon 4:25 AM EST 09:25:00 AM [employer] HC GLUCOSE POCT HC GLUCOSE POCT Routine 03/29/201903/29 Bon 12:43 AM 05:43:00 AM [employer] GLUCOSE, POC GLUCOSE, POC Routine 03/28/2019 03/28/2019 Bon 4:26 PM EST 09:26:00 PM [employer] HC GLUCOSE POCT HC GLUCOSE POCT Routine 03/28/201903/28 Bon 11:29 AM 04:29:00 PM [employer] CBC WITH AUTOMATED CBC WITH AUTOMATED Routine 03/28/2019 03/28/2019 Bon DIFF DIFF 6:00 AM EST 11:00:00 AM [employer] HC RENAL FUNCTION HC RENAL FUNCTION Routine 03/28/201905/29/2018 Bon PANEL PANEL 6:00 AM EST 11:00:00 AM [employer] MAGNESIUM MAGNESIUM Routine 03/28/2019 03/28/2019 Bon 6:00 AM EST 11:00:00 AM [employer] HC VANCOMYCIN HC VANCOMYCIN Routine 03/27/2019 9 Bon TROUGH TROUGH 8:50 PM EST 01:50:00 AM [employer] GLUCOSE, POC GLUCOSE, POC Routine 03/27/2019 03/27/2019 Bon 4:42 PM EST 09:42:00 PM [employer] HC GLUCOSE POCT HC GLUCOSE POCT Routine 03/27/201903/27 Bon 11:51 AM 04:51:00 PM [facility] [employer] CBC WITH AUTOMATED CBC WITH AUTOMATED Routine 03/27/2019 03/27/2019 Bon DIFF DIFF 6:45 AM EST 11:45:00 AM [employer] HC RENAL FUNCTION HC RENAL FUNCTION Routine 03/27/2019 1 05/28/2018 Bon PANEL PANEL 6:45 AM EST 11:45:00 AM [employer] MAGNESIUM MAGNESIUM Routine 03/27/2019 03/27/2019 Bon 6:45 AM EST 11:45:00 AM [employer] PERCUTANEOUS PERCUTANEOUS 03/26/2019 J-tube 03/26/2019 Bon ENDOSCOPIC ENDOSCOPIC 2:46 PM EST placement 07:46:00 PM [facility] GASTROSTOMY TUBE GASTROSTOMY TUBE EST - [place] INSERTION INSERTION 03/26/2019 H ealth 08:59:00 PM [employer] HC LACTIC ACID HC LACTIC ACID Routine 03/26/2019 019 Bon 10:15 AM 03:15:00 PM [facility] HC BLOOD GAS W HC BLOOD GAS W Routine 03/26/2019 019 Bon CALC O2/ARTERIAL CALC O2/ARTERIAL 9:51 AM EST 02 :51:00 PM [employer] CBC WITH AUTOMATED CBC WITH AUTOMATED Routine 03/26/2019 03/26/2019 Bon DIFF DIFF 8:14 AM EST 01:14:00 PM [employer] HC RENAL FUNCTION HC RENAL FUNCTION Routine 03/26/2019 1 05/27/2018 Bon PANEL PANEL 8:14 AM EST 01:14:00 PM [employer] MAGNESIUM MAGNESIUM Routine 03/26/2019 03/26/2019 Bon 8:14 AM EST 01:14:00 PM [employer] HC LACTIC ACID HC LACTIC ACID Routine 03/26/2019 019 Bon 8:14 AM EST 01:14:00 PM [facility] EST [facility] HC SODIUM URINE HC SODIUM URINE STAT 03/26/201903/26 Bon 7:10 AM EST 12:10:00 PM [employer] HC OSMOLALITY HC OSMOLALITY STAT 03/26/2019 9 Bon URINE URINE 7:10 AM EST 12:10:00 PM [employer] HC LACTIC ACID HC LACTIC ACID STAT 03/25/2019 019 Bon 7:10 AM EST 12:10:00 PM [employer] HC CORTISOL AM HC CORTISOL AM Routine 03/25/2019 019 Bon 7:10 AM EST 12:10:00 PM [employer] URINALYSIS W/ RFLX URINALYSIS W/ RFLX STAT 03/25/2019 03/25/2019 Bon MICROSCOPIC MICROSCOPIC 4:50 AM EST 09:50:00 AM [employer] HC BLOOD GAS W HC BLOOD GAS W Routine 03/25/2019 019 Bon CALC O2/ARTERIAL CALC O2/ARTERIAL 4:30 AM EST 09 :30:00 AM [employer] NON-INVASIVE NON-INVASIVE STAT 03/25/2019 03/25/2019 Bon POSITIVE PRESSURE POSITIVE PRESSURE 4:02 AM EST 09:02:57 AM [employer] VENTILATION VENTILATION [employer] EKG, 12 LEAD, EKG, 12 LEAD, STAT 03/25/2019 9 Bon INITIAL INITIAL 3:23 AM EST 08:23:33 AM [employer] HC CULTURE BLOOD HC CULTURE BLOOD STAT 03/25/201902/2019 Bon 3:10 AM EST 08:10:00 AM [employer] CBC WITH AUTOMATED CBC WITH AUTOMATED STAT 03/25/2019 03/25/2019 Bon DIFF DIFF 3:10 AM EST 08:10:00 AM [employer] URIC ACID URIC ACID Blood in 03/25/2019 03/25/2019 Bon Lab 3:10 AM EST 08:10:00 AM [employer] TSH 3RD GENERATION TSH 3RD GENERATION Blood in 03/25/2019 03/25/2019 Bon Lab 3:10 AM EST 08:10:00 AM [facility] EST [facility] HC OSMOLALITY HC OSMOLALITY Blood in 03/25/2019 03/25/20 19 Bon SERUM SERUM Lab 3:10 AM EST 08:10:00 AM [employer] METABOLIC PANEL, METABOLIC PANEL, STAT 03/25/201902/2019 Bon COMPREHENSIVE COMPREHENSIVE 3:10 AM EST 08:10:00 AM [employer] HC LACTIC ACID HC LACTIC ACID STAT 03/25/2019 019 Bon 3:10 AM EST 08:10:00 AM [employer] XR CHEST PORT XR CHEST PORT STAT 03/25/2019 9 Bon 3:04 AM EST 08:04:10 AM [employer] HC CULTURE BLOOD HC CULTURE BLOOD STAT 03/25/201902/2019 Bon 2:55 AM EST 07:55:00 AM [employer] SEPSIS BUNDLE SEPSIS BUNDLE STAT 03/25/2019 9 Bon INITIATED IN ED INITIATED IN ED 2:41 AM EST 07:4 1:57 AM [employer] CBC WITH AUTOMATED CBC WITH AUTOMATED Routine 03/17/2019 03/17/2019 Bon DIFF DIFF 7:45 AM EST 12:45:00 PM [employer] RENAL FUNCTION RENAL FUNCTION Routine 03/17/2019 019 Bon PANEL PANEL 7:45 AM EST 12:45:00 PM [employer] MAGNESIUM MAGNESIUM Routine 03/17/2019 03/17/2019 Bon 7:45 AM EST 12:45:00 PM [employer] CBC WITH AUTOMATED CBC WITH AUTOMATED Routine 03/16/2019 03/16/2019 Bon DIFF DIFF 7:16 AM EST 12:16:00 PM [employer] HC RENAL FUNCTION HC RENAL FUNCTION Routine 03/16/2019 1 05/17/2018 Bon PANEL PANEL 7:16 AM EST 12:16:00 PM [employer] MAGNESIUM MAGNESIUM Routine 03/16/2019 03/16/2019 Bon 7:16 AM EST 12:16:00 PM [employer] CBC WITH AUTOMATED CBC WITH AUTOMATED Routine 03/15/2019 03/15/2019 Bon DIFF DIFF 7:40 AM EST 12:40:00 PM [employer] HC RENAL FUNCTION HC RENAL FUNCTION Routine 03/15/2019 1 05/16/2018 Bon PANEL PANEL 7:40 AM EST 12:40:00 PM [employer] MAGNESIUM MAGNESIUM Routine 03/15/2019 03/15/2019 Bon 7:40 AM EST 12:40:[address] [employer] [address] CHEST WO CONT CT CHEST WO CONT Routine 03/14/2019 Bon 9:55 AM EST 02:55:29 PM [employer] HC BLOOD GAS W HC BLOOD GAS W Routine 03/14/2019 019 Bon CALC O2/ARTERIAL CALC O2/ARTERIAL 9:31 AM EST 02 :31:00 PM [employer] CBC WITH AUTOMATED CBC WITH AUTOMATED Routine 03/14/2019 03/14/2019 Bon DIFF DIFF 7:40 AM EST 12:40:00 PM [employer] METABOLIC PANEL, METABOLIC PANEL, Routine 03/14/2019 Bon COMPREHENSIVE COMPREHENSIVE 7:40 AM EST 12:40:00 PM [employer] MAGNESIUM MAGNESIUM Routine 03/14/2019 03/14/2019 Bon 7:40 AM EST 12:40:00 PM [employer] HC VANCOMYCIN HC VANCOMYCIN Timed 03/13/2019 9 Bon TROUGH TROUGH 8:15 PM EST 01:15:00 AM [employer] CBC WITH AUTOMATED CBC WITH AUTOMATED Routine 03/13/2019 03/13/2019 Bon DIFF DIFF 7:49 AM EST 12:49:00 PM [employer] HC RENAL FUNCTION HC RENAL FUNCTION Routine 03/13/2019 1 05/13/2018 Bon PANEL PANEL 7:49 AM EST 12:49:00 PM [employer] MAGNESIUM MAGNESIUM Routine 03/13/2019 03/13/2019 Bon 7:49 AM EST 12:49:00 PM [employer] HC GLUCOSE POCT HC GLUCOSE POCT Routine 03/13/201903/13 Bon 7:15 AM EST 12:15:00 PM [employer] GLUCOSE, POC GLUCOSE, POC Routine 03/12/2019 03/13/2019 Bon 9:55 PM EST 02:55:00 AM [employer] HC GLUCOSE POCT HC GLUCOSE POCT Routine 03/12/201903/12 Bon 12:07 PM 05:07:00 PM [employer] HC BLOOD GAS W HC BLOOD GAS W Routine 03/12/201903/12/ 019 Bon CALC O2/ARTERIAL CALC O2/ARTERIAL 11:13 AM 04:13 :00 PM [employer] VALPROIC ACID VALPROIC ACID Routine 03/12/2019 9 Bon 6:50 AM EST 11:50:00 AM [employer] HC RENAL FUNCTION HC RENAL FUNCTION Routine 03/12/2019 1 05/12/2018 Bon PANEL PANEL 6:50 AM EST 11:50:00 AM [employer] MAGNESIUM MAGNESIUM Routine 03/12/2019 03/12/2019 Bon 6:50 AM EST 11:50:00 AM [employer] LIPID PANEL LIPID PANEL Routine 03/12/2019 03/12/2019 Bon 6:50 AM EST 11:50:00 AM [employer] BLOOD GAS, BLOOD GAS, Routine 03/11/2019 03/11/2019 Bon ARTERIAL ARTERIAL 4:38 PM EST 09:38:00 PM [employer] HC LACTIC ACID HC LACTIC ACID STAT 03/11/2019 019 Bon 9:30 AM EST 02:30:00 PM [employer] HC BLOOD GAS W HC BLOOD GAS W Routine 03/11/2019 019 Bon CALC O2/ARTERIAL CALC O2/ARTERIAL 8:08 AM EST 01 :08:00 PM [employer] URINALYSIS W/ RFLX URINALYSIS W/ RFLX STAT 03/11/2019 03/11/2019 Bon MICROSCOPIC MICROSCOPIC 5:10 AM EST 10:10:00 AM [employer] XR CHEST PORT XR CHEST PORT STAT 03/11/2019 9 Bon 4:14 AM EST 09:14:46 AM [employer] HC CULTURE BLOOD HC CULTURE BLOOD STAT 03/11/2019 Bon 4:14 AM EST 09:14:00 AM [employer] HC CULTURE BLOOD HC CULTURE BLOOD STAT 03/11/2019 Bon 4:14 AM EST 09:14:00 AM [employer] CBC WITH AUTOMATED CBC WITH AUTOMATED STAT 03/11/2019 03/11/2019 Bon DIFF DIFF 4:14 AM EST 09:14:00 AM [employer] METABOLIC PANEL, METABOLIC PANEL, STAT 03/11/2019 Bon COMPREHENSIVE COMPREHENSIVE 4:14 AM EST 09:14:00 AM [employer] HC LACTIC ACID HC LACTIC ACID STAT 03/11/2019 019 Bon 4:14 AM EST 09:14:00 AM [employer] EKG, 12 LEAD, EKG, 12 LEAD, STAT 03/11/2019 9 Bon INITIAL INITIAL 4:09 AM EST 09:09:14 AM [employer] SEPSIS BUNDLE SEPSIS BUNDLE STAT 03/11/2019 9 Bon INITIATED IN ED INITIATED IN ED 3:55 AM EST 08:5 5:26 AM [employer] CBC W/O DIFF CBC W/O DIFF Routine 02/18/2019 02/18/2019 Bon 4:02 AM EST 09:02:00 AM [employer] METABOLIC PANEL, METABOLIC PANEL, Routine 02/18/201909/2018 Bon BASIC BASIC 4:02 AM EST 09:02:00 AM [employer] MAGNESIUM MAGNESIUM Routine 02/18/2019 02/18/2019 Bon 4:02 AM EST 09:02:00 AM [employer] GLUCOSE, POC GLUCOSE, POC Routine 02/17/2019 02/18/2019 Bon 10:00 PM 03:00:00 AM [facility] eugene [employer] GLUCOSE, POC GLUCOSE, POC Routine 02/17/2019 02/17/2019 Bon 4:46 PM EST 09:46:00 PM [employer] GLUCOSE, POC GLUCOSE, POC Routine 02/17/2019 02/17/2019 Bon 12:58 PM 05:58:00 PM [employer] [employer] ESOPHAGOGASTRODUOD ESOPHAGOGASTRODUOD 02/17/2019 PEG 02/17/2019 Bon ENOSCOPY (EGD) ENOSCOPY (EGD) 11:00 AM complicat 04:00:0 0 PM [employer] [email or web address] 02/17/2019 [facility]alt h 04:48:00 PM [employer] HC GLUCOSE POCT HC GLUCOSE POCT Routine 02/17/201902/17 Bon 8:05 AM EST 01:05:00 PM [employer] CBC W/O DIFF CBC W/O DIFF Routine 02/17/2019 02/17/2019 Bon 4:51 AM EST 09:51:00 [facility] [employer] METABOLIC PANEL, METABOLIC PANEL, Routine 02/17/201908/2018 Bon BASIC BASIC 4:51 AM EST 09:51:00 AM [facility] [employer] MAGNESIUM MAGNESIUM Routine 02/17/2019 02/17/2019 Bon 4:51 AM EST 09:51:00 AM [facility] [employer] GLUCOSE, POC GLUCOSE, POC Routine 02/16/2019 02/17/2019 Bon 10:31 PM 03:31:00 AM Sec eugene [employer] [facility] GLUCOSE, POC GLUCOSE, POC Routine 02/16/2019 02/16/2019 Bon 5:43 PM EST 10:43:00 PM [facility] [employer] ESOPHAGOGASTRODUOD ESOPHAGOGASTRODUOD 02/16/2019 [employer] 02/16/2019 Bon ENOSCOPY (EGD) ENOSCOPY (EGD) 12:35 PM n,dysphag 05:35:0 0 PM [facility] EST [employer] [place] 02/16/2019 Healt h 07:36:00 PM [employer] GLUCOSE, POC GLUCOSE, POC Routine 02/16/2019 02/16/2019 Bon 11:33 AM 04:33:00 PM Sec eugene FUENTES [facility] [employer] HC GLUCOSE POCT HC GLUCOSE POCT Routine 02/16/201902/16 Bon 7:07 AM EST 12:07:00 PM [facility] [place] [employer] CBC W/O DIFF CBC W/O DIFF Routine 02/16/2019 02/16/2019 Bon 4:45 AM EST 09:45:00 AM [facility] [place] [employer] PHOSPHORUS PHOSPHORUS Routine 02/16/2019 02/16/2019 Bon 4:45 AM EST 09:45:00 AM [facility] [place] [employer] METABOLIC PANEL, METABOLIC PANEL, Routine 02/16/201907/2018 Bon BASIC BASIC 4:45 AM EST 09:45:00 AM Seceugene EST [facility] MAGNESIUM MAGNESIUM Routine 02/16/2019 02/16/2019 Bon 4:45 AM EST 09:45:00 AM [employer] ALBUMIN ALBUMIN Routine 02/16/2019 02/16/2019 Jeff n 4:45 AM EST 09:45:00 AM Joy [employer] GLUCOSE, POC GLUCOSE, POC Routine 02/15/2019 02/16/2019 Bon 8:24 PM EST 01:24:00 AM [employer]aeugene [employer] HC SODIUM URINE HC SODIUM URINE STAT 02/15/201902/15 Bon 5:30 PM EST 10:30:00 PM [employer] HC OSMOLALITY HC OSMOLALITY STAT 02/15/2019 9 Bon URINE URINE 5:30 PM EST 10:30:00 PM [employer] GLUCOSE, POC GLUCOSE, POC Routine 02/15/2019 02/15/2019 Bon 5:27 PM EST 10:27:00 PM [employer] GLUCOSE, POC GLUCOSE, POC Routine 02/15/2019 02/15/2019 Bon 12:27 PM 05:27:00 PM Sec eugene [employer] URIC ACID URIC ACID Routine 02/15/2019 02/15/2019 Bon 11:45 AM 04:45:00 PM Sec eugene [employer] TSH 3RD GENERATION TSH 3RD GENERATION STAT 02/15/2019 02/15/2019 Bon 11:45 AM 04:45:00 PM Sec eugene [employer] HC OSMOLALITY HC OSMOLALITY STAT 02/15/2019 9 Bon SERUM SERUM 11:45 AM 04:45:00 PM Sec eugene [employer] HC GLUCOSE POCT HC GLUCOSE POCT Routine 02/15/201902/15 Bon 8:59 AM EST 01:59:00 PM [employer] PROTHROMBIN TIME + PROTHROMBIN TIME + Routine 02/15/2019 02/15/2019 Bon INR INR 4:35 AM EST 09:35:00 AM [employer] CBC WITH AUTOMATED CBC WITH AUTOMATED Routine 02/15/2019 02/15/2019 Bon DIFF DIFF 4:35 AM EST 09:35:00 AM [employer] METABOLIC PANEL, METABOLIC PANEL, Routine 02/15/201906/2018 Bon BASIC BASIC 4:35 AM EST 09:35:00 AM [facility] [employer] MAGNESIUM MAGNESIUM Routine 02/15/2019 02/15/2019 Bon 4:35 AM EST 09:35:00 AM [facility] GLUCOSE, POC GLUCOSE, POC Routine 02/14/2019 02/15/2019 Bon 9:03 PM EDT 01:03:00 AM [facility] [employer] GLUCOSE, POC GLUCOSE, POC Routine 02/14/2019 02/14/2019 Bon 4:32 PM EDT 08:32:[address] [facility] [employer] GLUCOSE, POC GLUCOSE, POC Routine 02/14/2019 02/14/2019 Bon 11:52 AM 03:52:00 PM [facility] [employer] HC GLUCOSE POCT HC GLUCOSE POCT Routine 02/14/201902/14 Bon 8:11 AM EDT 12:11:[address] [facility] CBC W/O DIFF CBC W/O DIFF Routine 02/14/2019 02/14/2019 Bon 5:03 AM EDT 09:03:[address] [facility] METABOLIC PANEL, METABOLIC PANEL, Routine 02/14/201905/2018 Bon BASIC BASIC 5:03 AM EDT 09:03:00 AM [facility] [employer] MAGNESIUM MAGNESIUM Routine 02/14/2019 02/14/2019 Bon 5:03 AM EDT 09:03:00 AM [facility] [employer] [facility] [employer] GLUCOSE, POC GLUCOSE, POC Routine 02/13/2019 02/14/2019 Bon 8:54 PM EDT 12:54:[address] [facility] [employer] GLUCOSE, POC GLUCOSE, POC Routine 02/13/2019 02/13/2019 Bon 4:35 PM EDT 08:35:00 PM [facility] [employer] GLUCOSE, POC GLUCOSE, POC Routine 02/13/2019 02/13/2019 Bon 12:52 PM 04:52:00 PM [facility] [employer] [facility] [employer] HC GLUCOSE POCT HC GLUCOSE POCT Routine 02/13/201902/13 Bon 8:19 AM EDT 12:19:[address] [facility]Pre[facility] CBC W/O DIFF CBC W/O DIFF Routine 02/13/2019 02/13/2019 Bon 2:54 AM EDT 06:54:00 AM [facility] [employer] METABOLIC PANEL, METABOLIC PANEL, Routine 02/13/201904/2018 Bon BASIC BASIC 2:54 AM EDT 06:54:00 AM [facility] [employer] MAGNESIUM MAGNESIUM Routine 02/13/2019 02/13/2019 Bon 2:54 AM EDT 06:54:[address] [facility] GLUCOSE, POC GLUCOSE, POC Routine 02/12/2019 02/13/2019 Bon 9:17 PM EDT 01:17:00 AM [facility] [employer] HC GLUCOSE POCT HC GLUCOSE POCT Routine 02/12/201902/12 Bon 4:34 PM EDT 08:34:00 PM [facility] [employer] HC BLOOD GAS W HC BLOOD GAS W Routine 02/12/2019 019 Bon CALC O2/ARTERIAL CALC O2/ARTERIAL 9:09 AM EDT 01 :09:00 PM [facility] [employer] XR CHEST SNGL V XR CHEST SNGL V Routine 02/12/201902/12 Bon 7:40 AM EDT 11:40:18 AM [facility] [employer] CBC WITH AUTOMATED CBC WITH AUTOMATED Routine 02/12/2019 02/12/2019 Bon DIFF DIFF 4:01 AM EDT 08:01:00 AM [facility] [employer] METABOLIC PANEL, METABOLIC PANEL, Routine 02/12/2019 Bon BASIC BASIC 4:01 AM EDT 08:01:00 AM [facility] [employer] MAGNESIUM MAGNESIUM Routine 02/12/2019 02/12/2019 Bon 4:01 AM EDT 08:01:00 AM [facility]ignSpring View HospitalAmericaPrevacus GLUCOSE, POC GLUCOSE, POC Routine 02/11/2019 02/12/2019 Bon 8:06 PM EDT 12:06:00 AM [facility] [employer] GLUCOSE, POC GLUCOSE, POC Routine 02/11/2019 02/11/2019 Bon 4:42 PM EDT 08:42:00 PM [facility] [employer] GLUCOSE, POC GLUCOSE, POC Routine 02/11/2019 02/11/2019 Bon 11:40 AM 03:40:00 PM Sec [facility] [employer] [facility] HC GLUCOSE POCT HC GLUCOSE POCT Routine 02/11/201902/11 Bon 7:21 AM EDT 11:21:00 AM [facility] METABOLIC PANEL, METABOLIC PANEL, Routine 02/11/2019 Bon BASIC BASIC 4:05 AM EDT 08:05:00 AM [facility] MAGNESIUM MAGNESIUM Routine 02/11/2019 02/11/2019 Bon 4:05 AM EDT 08:05:00 AM [facility] CBC W/O DIFF CBC W/O DIFF Routine 02/11/2019 02/11/2019 Bon 4:05 AM EDT 08:05:00 AM [facility] GLUCOSE, POC GLUCOSE, POC Routine 02/10/2019 02/11/2019 Bon 8:45 PM EDT 12:45:00 AM [facility] DUPLEX UPPER EXT DUPLEX UPPER EXT Routine 02/10/2019 Bon VENOUS LEFT VENOUS LEFT 4:11 PM EDT 08:11:59 PM [facility] [employer] [facility] DUPLEX LOWER EXT DUPLEX LOWER EXT Routine 02/10/2019 Bon VENOUS BILAT VENOUS BILAT 4:11 PM EDT 08:11:38 P M [facility] GLUCOSE, POC GLUCOSE, POC Routine 02/10/2019 02/10/2019 Bon 4:10 PM EDT 08:10:00 PM [facility] GLUCOSE, POC GLUCOSE, POC Routine 02/10/2019 02/10/2019 Bon 10:53 AM 02:53:00 PM [facility] HC GLUCOSE POCT HC GLUCOSE POCT Routine 02/10/201902/10 Bon 7:24 AM EDT 11:24:00 AM [facility] CBC WITH AUTOMATED CBC WITH AUTOMATED Routine 02/10/2019 02/10/2019 Bon DIFF DIFF 4:25 AM EDT 08:25:00 AM [facility] METABOLIC PANEL, METABOLIC PANEL, Routine 02/10/2019 Sarbjit COMPREHENSIVE COMPREHENSIVE 4:25 AM EDT 08:25:[address] [facility] CampusSpeek [facility] MAGNESIUM MAGNESIUM Routine 02/10/2019 02/10/2019 Bon 4:25 AM EDT 08:25:00 AM [facility] [employer] [facility] GLUCOSE, POC GLUCOSE, POC Routine 02/09/2019 02/10/2019 Bon 8:42 PM EDT 12:42:00 AM [facility] [employer] [facility] GLUCOSE, POC GLUCOSE, POC Routine 02/09/2019 02/09/2019 Bon 4:46 PM EDT 08:46:[address] [facility] CampusPre[facility] HC BLOOD GAS W HC BLOOD GAS W Routine 02/09/2019 019 Bon CALC O2/ARTERIAL CALC O2/ARTERIAL 2:14 PM EDT 06 :14:00 PM [facility] [employer] XR CHEST SNGL V XR CHEST SNGL V Routine 02/09/201902/09 Bon 2:10 PM EDT 06:10:[address] [facility] CampusPre[facility] GLUCOSE, POC GLUCOSE, POC Routine 02/09/2019 02/09/2019 Bon 11:14 AM 03:14:00 PM [facility] HC GLUCOSE POCT HC GLUCOSE POCT Routine 02/09/201902/09 Bon 8:39 AM EDT 12:39:00 PM [facility] [employer] HEMOGLOBIN A1C W/O HEMOGLOBIN A1C W/O Routine 02/09/2019 02/09/2019 Bon EAG EAG 4:45 AM EDT 08:45:00 AM [facility] [employer] HC REF VALPORIC HC REF VALPORIC Routine 02/09/201902/09 Bon ACID FREE ACID FREE 4:45 AM EDT 08:45:00 AM [facility] [employer] CBC W/O DIFF CBC W/O DIFF Routine 02/09/2019 02/09/2019 Bon 4:45 AM EDT 08:45:00 AM [facility] [employer] URIC ACID URIC ACID Routine 02/09/2019 02/09/2019 Bon 4:45 AM EDT 08:45:00 AM [facility] [employer] TSH 3RD GENERATION TSH 3RD GENERATION Routine 02/09/2019 02/09/2019 Bon 4:45 AM EDT 08:45:00 AM [facility] [employer] PHOSPHORUS PHOSPHORUS Routine 02/09/2019 02/09/2019 Bon 4:45 AM EDT 08:45:00 AM [facility] [employer] METABOLIC PANEL, METABOLIC PANEL, Routine 02/09/2019 Bon BASIC BASIC 4:45 AM EDT 08:45:00 AM [facility] [employer] MAGNESIUM MAGNESIUM Routine 02/09/2019 02/09/2019 Bon 4:45 AM EDT 08:45:00 AM [facility] [employer] LIPID PANEL LIPID PANEL Routine 02/09/2019 02/09/2019 Bon 4:45 AM EDT 08:45:00 AM [facility] [employer] HEPATIC FUNCTION HEPATIC FUNCTION STAT 02/09/2019 Bon PANEL PANEL 4:45 AM EDT 08:45:00 AM [facility] HC EIA QL SGL HC EIA QL SGL Routine 02/08/2019 9 Bon ANTIGEN ANTIGEN 11:30 PM 03:30:00 AM Sec ours ED [employer] HC GLUCOSE POCT HC GLUCOSE POCT Routine 02/08/201902/09 Bon 10:23 PM 02:23:00 AM Sec ours ED [employer] HC LACTIC ACID HC LACTIC ACID STAT 02/08/2019 019 Bon 10:10 PM 02:10:00 AM Sec ours EDT [employer] XR CHEST PORT XR CHEST PORT STAT 02/08/2019 9 Bon 5:29 PM EDT 09:29:13 PM [facility] HC CULTURE BLOOD HC CULTURE BLOOD STAT 02/08/2019 Bon 5:19 PM EDT 09:19:00 PM [employer] HC CULTURE BLOOD HC CULTURE BLOOD STAT 02/08/2019 Bon 5:00 PM EDT 09:00:00 PM [employer] CBC WITH AUTOMATED CBC WITH AUTOMATED STAT 02/08/2019 02/08/2019 Bon DIFF DIFF 5:00 PM EDT 09:00:00 PM [employer] HC TROPONIN I HC TROPONIN I Blood in 02/08/2019 02/09/20 19 Bon QUANT QUANT Lab 5:00 PM EDT 09:00:[address] [facility] CampusSpe[facility] HC PRO B HC PRO B Blood in 02/08/2019 02/08/2019 Sarbjit NATRIURETIC NATRIURETIC Lab 5:00 PM EDT 09:00:00 PM [facility] PEPTIDE PEPTIDE [facility] CenterSpe[facility] METABOLIC PANEL, METABOLIC PANEL, STAT 02/08/2019 Sarbjit COMPREHENSIVE COMPREHENSIVE 5:00 PM EDT 09:00:[address] [facility] CampusSpe[facility] HC LACTIC ACID HC LACTIC ACID STAT 02/08/2019 019 Bon 5:00 PM EDT 09:00:[address] [facility] CampusSpe[facility] URINALYSIS W/ RFLX URINALYSIS W/ RFLX STAT 02/08/2019 02/08/2019 Sarbjit MICROSCOPIC MICROSCOPIC 4:59 PM EDT 08:59:[address] [facility] CampusSpe[facility] SEVERE SEPSIS AND SEVERE SEPSIS AND STAT 02/08/2019 1 Sarbjit SEPTIC SHOCK SEPTIC SHOCK 4:46 PM EDT 08:46:29 P M [facility] BUNDLE INITIATED BUNDLE INITIATED [facility] CenterSpe[facility] EKG, 12 LEAD, EKG, 12 LEAD, STAT 02/08/2019 9 Sarbjit INITIAL INITIAL 4:18 PM EDT 08:18:[address] [facility] CampusSpe[facility] CBC WITH AUTOMATED CBC WITH AUTOMATED STAT 01/24/2019 01/24/2019 Sarbjit DIFF DIFF Blood in 5:35 AM EDT 09:35:00 AM [facility] Lab [facility] CenterSpe[facility] RENAL FUNCTION RENAL FUNCTION Routine 01/24/2019 019 Bon PANEL PANEL 5:35 AM EDT 09:35:[address] [facility] CampusSpe[facility] MAGNESIUM MAGNESIUM Routine 01/24/2019 01/24/2019 Bon 5:35 AM EDT 09:35:00 AM [facility] [employer] [facility] HC VANCOMYCIN HC VANCOMYCIN Timed 01/23/2019 9 Bon TROUGH TROUGH 11:05 AM 03:05:00 PM Sec [facility] HC RENAL FUNCTION HC RENAL FUNCTION Routine 01/23/2019 1 Bon PANEL PANEL 5:20 AM EDT 09:20:00 AM [facility] MitralignSpring View HospitalAmericaSpeek [facility] MAGNESIUM MAGNESIUM Routine 01/23/2019 01/23/2019 Bon 5:20 AM EDT 09:20:00 AM [facility] [employer] HC RENAL FUNCTION HC RENAL FUNCTION Routine 01/22/2019 1 Bon PANEL PANEL 4:47 AM EDT 08:47:00 AM [employer] MAGNESIUM MAGNESIUM Routine 01/22/2019 01/22/2019 Bon 4:47 AM EDT 08:47:00 AM [employer] HC AMMONIA HC AMMONIA Routine 01/22/2019 01/22/2019 Bon 4:47 AM EDT 08:47:00 AM [facility] URINALYSIS W/ RFLX URINALYSIS W/ RFLX Routine 01/21/2019 01/22/2019 Bon MICROSCOPIC MICROSCOPIC 11:15 PM 03:15:00 AM [facility] [employer] CULTURE, URINE CULTURE, URINE STAT 01/21/2019 019 Bon 11:15 PM 03:15:00 AM [facility] [employer] XR CHEST PORT XR CHEST PORT STAT 01/21/2019 9 Bon 10:36 PM 02:36:07 AM [facility] [employer] HC RENAL FUNCTION HC RENAL FUNCTION Routine 01/21/2019 1 Bon PANEL PANEL 4:23 AM EDT 08:23:00 AM [employer] MAGNESIUM MAGNESIUM Routine 01/21/2019 01/21/2019 Bon 4:23 AM EDT 08:23:00 AM [employer] CBC WITH AUTOMATED CBC WITH AUTOMATED Routine 01/20/2019 01/20/2019 Bon DIFF DIFF 5:43 AM EDT 09:43:00 AM [employer] HC RENAL FUNCTION HC RENAL FUNCTION Routine 01/20/2019 1 Bon PANEL PANEL 5:43 AM EDT 09:43:00 AM [employer] MAGNESIUM MAGNESIUM Routine 01/20/2019 01/20/2019 Bon 5:43 AM EDT 09:43:00 AM [employer] CBC WITH AUTOMATED CBC WITH AUTOMATED Routine 01/19/2019 01/19/2019 Bon DIFF DIFF 4:46 AM EDT 08:46:00 AM [employer] HC RENAL FUNCTION HC RENAL FUNCTION Routine 01/19/2019 1 Bon PANEL PANEL 4:46 AM EDT 08:46:00 AM [employer] MAGNESIUM MAGNESIUM Routine 01/19/2019 01/19/2019 Bon 4:46 AM EDT 08:46:00 AM [employer] CBC WITH AUTOMATED CBC WITH AUTOMATED Routine 01/18/2019 01/18/2019 Bon DIFF DIFF 4:13 AM EDT 08:13:00 AM [employer] HC RENAL FUNCTION HC RENAL FUNCTION Routine 01/18/2019 1 Bon PANEL PANEL 4:13 AM EDT 08:13:00 AM [employer] MAGNESIUM MAGNESIUM Routine 01/18/2019 01/18/2019 Bon 4:13 AM EDT 08:13:00 AM [employer] XR CHEST PORT XR CHEST PORT Routine 01/17/2019 9 Bon 8:12 AM EDT 12:12:40 PM [employer] CBC WITH AUTOMATED CBC WITH AUTOMATED Routine 01/17/2019 01/17/2019 Bon DIFF DIFF 4:45 AM EDT 08:45:00 AM [employer] HC RENAL FUNCTION HC RENAL FUNCTION Routine 01/17/2019 1 Bon PANEL PANEL 4:45 AM EDT 08:45:00 AM [employer] MAGNESIUM MAGNESIUM Routine 01/17/2019 01/17/2019 Bon 4:45 AM EDT 08:45:00 AM [employer] CBC WITH AUTOMATED CBC WITH AUTOMATED Routine 01/16/2019 01/16/2019 Bon DIFF DIFF 5:45 AM EDT 09:45:00 AM [employer] HC RENAL FUNCTION HC RENAL FUNCTION Routine 01/16/2019 1 Bon PANEL PANEL 5:45 AM EDT 09:45:00 AM [employer] MAGNESIUM MAGNESIUM Routine 01/16/2019 01/16/2019 Bon 5:45 AM EDT 09:45:[address] [employer] [address] CHEST W CONT CT CHEST W CONT Routine 01/15/201901/15 Bon F/U F/U 9:35 AM EDT 01:35:04 PM [employer] CBC WITH AUTOMATED CBC WITH AUTOMATED Routine 01/15/2019 01/15/2019 Bon DIFF DIFF 5:27 AM EDT 09:27:00 AM [employer] HC RENAL FUNCTION HC RENAL FUNCTION Routine 01/15/2019 1 Bon PANEL PANEL 5:27 AM EDT 09:27:00 AM [employer] MAGNESIUM MAGNESIUM Routine 01/15/2019 01/15/2019 Bon 5:27 AM EDT 09:27:00 AM [employer] CBC WITH AUTOMATED CBC WITH AUTOMATED Routine 01/14/2019 01/14/2019 Bon DIFF DIFF 6:17 AM EDT 10:17:00 AM [employer] HC RENAL FUNCTION HC RENAL FUNCTION Routine 01/14/2019 1 Bon PANEL PANEL 6:17 AM EDT 10:17:00 AM [employer] MAGNESIUM MAGNESIUM Routine 01/14/2019 01/14/2019 Bon 6:17 AM EDT 10:17:00 AM [employer] CBC WITH AUTOMATED CBC WITH AUTOMATED Routine 01/13/2019 01/13/2019 Bon DIFF DIFF 4:41 AM EDT 08:41:00 AM [employer] HC RENAL FUNCTION HC RENAL FUNCTION Routine 01/13/2019 1 Bon PANEL PANEL 4:41 AM EDT 08:41:00 AM [employer] MAGNESIUM MAGNESIUM Routine 01/13/2019 01/13/2019 Bon 4:41 AM EDT 08:41:00 AM [employer] CBC WITH AUTOMATED CBC WITH AUTOMATED Routine 01/12/2019 01/12/2019 Bon DIFF DIFF 4:33 AM EDT 08:33:00 AM [employer] HC RENAL FUNCTION HC RENAL FUNCTION Routine 01/12/2019 0 01/12/2019 Bon PANEL PANEL 4:33 AM EDT 08:33:00 AM [employer] MAGNESIUM MAGNESIUM Routine 01/12/2019 01/12/2019 Bon 4:33 AM EDT 08:33:00 AM [employer] DUPLEX LOWER EXT DUPLEX LOWER EXT Routine 01/11/2019 Bon VENOUS BILAT VENOUS BILAT 8:02 PM EDT 12:02:51 A M [employer] CBC WITH AUTOMATED CBC WITH AUTOMATED Routine 01/11/2019 01/11/2019 Bon DIFF DIFF 4:58 AM EDT 08:58:00 AM [employer] HC RENAL FUNCTION HC RENAL FUNCTION Routine 01/11/2019 0 01/11/2019 Bon PANEL PANEL 4:58 AM EDT 08:58:00 AM [facility] [employer] MAGNESIUM MAGNESIUM Routine 01/11/2019 01/11/2019 Bon 4:58 AM EDT 08:58:00 AM [facility] [employer] VALPROIC ACID VALPROIC ACID Routine 01/11/2019 9 Bon 4:53 AM EDT 08:53:00 AM [employer] HC RENAL FUNCTION HC RENAL FUNCTION Timed 01/10/2019 0 01/10/2019 Bon PANEL PANEL 5:33 PM EDT 09:33:00 PM [facility] [employer] HC OSMOLALITY HC OSMOLALITY Routine 01/10/2019 9 Bon SERUM SERUM 5:33 PM EDT 09:33:[address] [employer] [address] CHEST WO CONT CT CHEST WO CONT STAT 01/10/2019 Bon 1:11 PM EDT 05:11:39 PM [employer] HC LACTIC ACID HC LACTIC ACID STAT 01/10/2019 019 Bon 11:29 AM 03:29:00 PM Sec ours EDT [facility] [employer] HC ABO BLOOD TYPE HC ABO BLOOD TYPE STAT 01/10/2019 0 01/10/2019 Bon 11:29 AM 03:29:00 PM Sec ours EDT [employer] CULTURE, URINE CULTURE, URINE STAT 01/10/2019 019 Bon 8:58 AM EDT 12:58:00 PM [employer] URINALYSIS W/ RFLX URINALYSIS W/ RFLX STAT 01/10/2019 01/10/2019 Bon MICROSCOPIC MICROSCOPIC 8:48 AM EDT 12:48:00 PM [employer] XR CHEST PORT XR CHEST PORT STAT 01/10/2019 9 Bon 8:19 AM EDT 12:19:35 PM [facility] [employer] HC CULTURE BLOOD HC CULTURE BLOOD STAT 01/10/2019 Bon 7:55 AM EDT 11:55:[address] [facility] SEVERE SEPSIS AND SEVERE SEPSIS AND STAT 01/10/2019 0 01/10/2019 Bon SEPTIC SHOCK SEPTIC SHOCK 7:51 AM EDT 11:51:23 A [facility] BUNDLE INITIATED BUNDLE INITIATED EDSpring View HospitalAmericaPrevacus HC BLOOD GAS W HC BLOOD GAS W Routine 01/10/2019 019 Bon CALC O2/ARTERIAL CALC O2/ARTERIAL 7:47 AM EDT 11 :47:[address] [facility]Spe[facility] HC CULTURE BLOOD HC CULTURE BLOOD STAT 01/10/2019 Bon 7:40 AM EDT 11:40:[address] [facility]Spe[facility] PROTHROMBIN TIME + PROTHROMBIN TIME + STAT 01/10/2019 01/10/2019 Bon INR INR 7:40 AM EDT 11:40:[address] [facility]Spe[facility] CBC WITH AUTOMATED CBC WITH AUTOMATED STAT 01/10/2019 01/10/2019 Bon DIFF DIFF 7:40 AM EDT 11:40:[address] [facility] CampusSpe[facility] HC PARTIAL HC PARTIAL STAT 01/10/2019 01/10/2019 Bon THROMBOPLASTIN/ THROMBOPLASTIN/ 7:40 AM EDT 11:4 0:00 AM [facility] PTT PTT [facility] [employer] HC TROPONIN I HC TROPONIN I STAT 01/10/2019 9 Bon QUANT QUANT 7:40 AM EDT 11:40:[address] [facility] CampusSpe[facility] METABOLIC PANEL, METABOLIC PANEL, STAT 01/10/2019 Bon COMPREHENSIVE COMPREHENSIVE 7:40 AM EDT 11:40:00 AM [facility]ignSpring View HospitalAmericaPrevacus HC LACTIC ACID HC LACTIC ACID STAT 01/10/2019 019 Bon 7:40 AM EDT 11:40:00 AM [facility]ralignSpring View HospitalAmericaPrevacus CK CK STAT 01/10/2019 01/10/2019 Jeff n 7:40 AM EDT 11:40:00 AM [facility] BNP BNP STAT 01/10/2019 01/10/2019 Jeff n 7:40 AM EDT 11:40:00 AM [facility] EKG, 12 LEAD, EKG, 12 LEAD, STAT 01/10/2019 9 Bon INITIAL INITIAL 7:34 AM EDT 11:34:31 AM [facility] SEVERE SEPSIS AND SEVERE SEPSIS AND STAT 01/10/2019 0 01/10/2019 Bon SEPTIC SHOCK SEPTIC SHOCK 7:29 AM EDT 11:29:13 A M [facility] BUNDLE INITIATED BUNDLE INITIATED [facility] GLUCOSE, POC GLUCOSE, POC Routine 12/30/2018 12/30/2018 Bon 11:53 AM 03:53:00 PM Sec [facility] GLUCOSE, POC GLUCOSE, POC Routine 12/30/2018 12/30/2018 Bon 6:23 AM EDT 10:23:00 AM [facility] CBC WITH AUTOMATED CBC WITH AUTOMATED Routine 12/30/2018 12/30/2018 Bon DIFF DIFF 3:06 AM EDT 07:06:00 AM [facility] RENAL FUNCTION RENAL FUNCTION Routine 12/30/2018 019 Bon PANEL PANEL 3:06 AM EDT 07:06:00 AM [facility] MAGNESIUM MAGNESIUM Routine 12/30/2018 12/30/2018 Bon 3:06 AM EDT 07:06:00 AM [facility] GLUCOSE, POC GLUCOSE, POC Routine 12/30/2018 12/30/2018 Bon 12:08 AM 04:08:00 AM Sec ours [facility] GLUCOSE, POC GLUCOSE, POC Routine 12/29/2018 12/29/2018 Bon 5:37 PM EDT 09:37:00 PM [facility] GLUCOSE, POC GLUCOSE, POC Routine 12/29/2018 12/29/2018 Bon 11:48 AM 03:48:00 PM Sec ours [facility] XR CHEST PORT XR CHEST PORT Routine 12/29/2018 9 Bon 11:01 AM 03:01:00 PM Sec ours [facility] URINALYSIS W/ RFLX URINALYSIS W/ RFLX Routine 12/29/2018 12/29/2018 Bon MICROSCOPIC MICROSCOPIC 11:00 AM 03:00:00 PM [facility] GLUCOSE, POC GLUCOSE, POC Routine 12/29/2018 12/29/2018 Bon 7:06 AM EDT 11:06:00 AM [facility] CBC WITH AUTOMATED CBC WITH AUTOMATED Routine 12/29/2018 12/29/2018 Bon DIFF DIFF 3:08 AM EDT 07:08:00 AM [facility] HC RENAL FUNCTION HC RENAL FUNCTION Routine 12/29/2018 0 12/29/2018 Bon PANEL PANEL 3:08 AM EDT 07:08:00 AM [facility] MAGNESIUM MAGNESIUM Routine 12/29/2018 12/29/2018 Bon 3:08 AM EDT 07:08:00 AM [facility] HC GLUCOSE POCT HC GLUCOSE POCT Routine 12/29/201812/29 Bon 12:36 AM 04:36:00 AM [facility] GLUCOSE, POC GLUCOSE, POC Routine 12/28/2018 12/28/2018 Bon 5:52 PM EDT 09:52:00 PM [facility] GLUCOSE, POC GLUCOSE, POC Routine 12/28/2018 12/28/2018 Bon 11:51 AM 03:51:00 PM Sec [facility] GLUCOSE, POC GLUCOSE, POC Routine 12/28/2018 12/28/2018 Bon 6:10 AM EDT 10:10:00 AM [facility] CBC WITH AUTOMATED CBC WITH AUTOMATED Routine 12/28/2018 12/28/2018 Bon DIFF DIFF 3:21 AM EDT 07:21:00 AM [facility] [employer] [facility] HC RENAL FUNCTION HC RENAL FUNCTION Routine 12/28/2018 0 12/28/2018 Bon PANEL PANEL 3:21 AM EDT 07:21:00 AM [facility] [employer] mobility [facility] MAGNESIUM MAGNESIUM Routine 12/28/2018 12/28/2018 Bon 3:21 AM EDT 07:21:00 AM [facility] HC GLUCOSE POCT HC GLUCOSE POCT Routine 12/28/201812/28 Bon 12:29 AM 04:29:00 AM Sec ours EDT EDT [facility] [employer] GLUCOSE, POC GLUCOSE, POC Routine 12/27/2018 12/27/2018 Bon 5:45 PM EDT 09:45:00 [facility] [employer] GLUCOSE, POC GLUCOSE, POC Routine 12/27/2018 12/27/2018 Bon 12:20 PM 04:20:00 PM [facility] [employer] GLUCOSE, POC GLUCOSE, POC Routine 12/27/2018 12/27/2018 Bon 6:13 AM EDT 10:13:00 AM [facility] [employer] CBC WITH AUTOMATED CBC WITH AUTOMATED Routine 12/27/2018 12/27/2018 Bon DIFF DIFF 3:05 AM EDT 07:05:00 AM [facility] HC RENAL FUNCTION HC RENAL FUNCTION Routine 12/27/2018 0 12/27/2018 Bon PANEL PANEL 3:05 AM EDT 07:05:00 AM [facility] [employer] MAGNESIUM MAGNESIUM Routine 12/27/2018 12/27/2018 Bon 3:05 AM EDT 07:05:00 AM [facility] [employer] HC GLUCOSE POCT HC GLUCOSE POCT Routine 12/27/201812/27 Bon 12:12 AM 04:12:00 AM Sec eugene [facility] [employer] GLUCOSE, POC GLUCOSE, POC Routine 12/26/2018 12/26/2018 Bon 5:29 PM EDT 09:29:00 PM [facility] DUPLEX UPPER EXT DUPLEX UPPER EXT Routine 12/26/2018 Bon VENOUS LEFT VENOUS LEFT 4:43 PM EDT 08:43:11 PM [facility] [employer] [facility] [employer] GLUCOSE, POC GLUCOSE, POC Routine 12/26/2018 12/26/2018 Bon 12:13 PM 04:13:00 PM Sec eugene [facility] [employer] CBC W/O DIFF CBC W/O DIFF Routine 12/26/2018 12/26/2018 Bon 11:30 AM 03:30:00 PM Sec eugene [facility] [employer] GLUCOSE, POC GLUCOSE, POC Routine 12/26/2018 12/26/2018 Bon 7:01 AM EDT 11:01:[address] [facility] HC RENAL FUNCTION HC RENAL FUNCTION Routine 12/26/2018 0 12/26/2018 Bon PANEL PANEL 3:10 AM EDT 07:10:00 AM [facility] [employer] [facility] MAGNESIUM MAGNESIUM Routine 12/26/2018 12/26/2018 Bon 3:10 AM EDT 07:10:00 AM [facility] [employer] HC GLUCOSE POCT HC GLUCOSE POCT Routine 12/26/201812/26 Bon 12:25 AM 04:25:00 AM [facility] EDT [facility] sc[employer] mobility [facility] GLUCOSE, POC GLUCOSE, POC Routine 12/25/2018 12/25/2018 Bon 4:22 PM EDT 08:22:00 PM [facility] [employer] [facility] HC BLOOD GAS W HC BLOOD GAS W Routine 12/25/2018 019 Bon CALC O2/ARTERIAL CALC O2/ARTERIAL 2:36 PM EDT 06 :36:00 PM [facility] [employer] GLUCOSE, POC GLUCOSE, POC Routine 12/25/2018 12/25/2018 Bon 12:27 PM 04:27:00 PM [facility] CHEST SNGL V XR CHEST SNGL V Routine 12/25/201812/25 Bon 7:24 AM EDT 11:24:07 AM [facility] HospitalAmerica[facility] GLUCOSE, POC GLUCOSE, POC Routine 12/25/2018 12/25/2018 Bon 6:27 AM EDT 10:27:00 AM [facility] [employer] HC RENAL FUNCTION HC RENAL FUNCTION Routine 12/25/2018 0 12/25/2018 Bon PANEL PANEL 3:15 AM EDT 07:15:00 AM [facility] [employer] HC PRO B HC PRO B Routine 12/25/2018 12/25/2018 Bon NATRIURETIC NATRIURETIC 3:15 AM EDT 07:15:00 AM [facility] PEPTIDE PEPTIDE [facility] [employer] [facility] MAGNESIUM MAGNESIUM Routine 12/25/2018 12/25/2018 Bon 3:15 AM EDT 07:15:00 AM [facility] [employer] HC GLUCOSE POCT HC GLUCOSE POCT Routine 12/25/201812/25 Bon 12:02 AM 04:02:00 AM [facility] GLUCOSE, POC GLUCOSE, POC Routine 12/24/2018 12/24/2018 Bon 7:19 PM EDT 11:19:00 PM [facility] CenterPeopleCubeSpring View HospitalAmericaPrevacus GLUCOSE, POC GLUCOSE, POC Routine 12/24/2018 12/24/2018 Bon 11:57 AM 03:57:00 PM [facility] [employer] URINALYSIS W/ RFLX URINALYSIS W/ RFLX Routine 12/24/2018 12/24/2018 Bon MICROSCOPIC MICROSCOPIC 9:45 AM EDT 01:45:00 PM [facility] [employer] CULTURE, URINE CULTURE, URINE Routine 12/24/2018 019 Bon 9:45 AM EDT 01:45:00 PM [facility] [employer] GLUCOSE, POC GLUCOSE, POC Routine 12/24/2018 12/24/2018 Bon 6:21 AM EDT 10:21:00 AM [facility]My[facility]illBase [facility] HC RENAL FUNCTION HC RENAL FUNCTION Routine 12/24/2018 0 12/24/2018 Bon PANEL PANEL 3:11 AM EDT 07:11:00 AM [facility] [employer] MAGNESIUM MAGNESIUM Routine 12/24/2018 12/24/2018 Bon 3:11 AM EDT 07:11:00 AM [facility] HC GLUCOSE POCT HC GLUCOSE POCT Routine 12/24/201812/24 Bon 12:09 AM 04:09:00 AM Sec [facility]ene [facility] [employer] GLUCOSE, POC GLUCOSE, POC Routine 12/23/2018 12/23/2018 Bon 6:01 PM EDT 10:01:00 PM [facility] HC CULTURE BLOOD HC CULTURE BLOOD Routine 12/23/201801/2019 Bon 12:00 PM 04:00:00 PM Sec ours [facility] [employer] GLUCOSE, POC GLUCOSE, POC Routine 12/23/2018 12/23/2018 Bon 11:52 AM 03:52:00 PM Sec ours Mitralign [facility] HospitalAmericaPrevac[facility] HC CULTURE BLOOD HC CULTURE BLOOD Routine 12/23/201801/2019 Bon 11:40 AM 03:40:00 PM Sec eugene [employer] CBC W/O DIFF CBC W/O DIFF Blood in 12/23/2018 12/23/2018 Bon Lab 3:38 AM EDT 07:38:00 AM [employer] HC RENAL FUNCTION HC RENAL FUNCTION Routine 12/23/2018 0 12/23/2018 Bon PANEL PANEL 3:38 AM EDT 07:38:00 AM [facility] [employer] MAGNESIUM MAGNESIUM Routine 12/23/2018 12/23/2018 Bon 3:38 AM EDT 07:38:00 AM [facility] [employer] HC GLUCOSE POCT HC GLUCOSE POCT Routine 12/22/201812/23 Bon 11:36 PM 03:36:00 AM Sec [facility] [employer] [facility] [employer] GLUCOSE, POC GLUCOSE, POC Routine 12/22/2018 12/22/2018 Bon 5:54 PM EDT 09:54:00 PM [facility] [employer] GLUCOSE, POC GLUCOSE, POC Routine 12/22/2018 12/22/2018 Bon 11:59 AM 03:59:00 PM Sec [facility] [employer] GLUCOSE, POC GLUCOSE, POC Routine 12/22/2018 12/22/2018 Bon 6:25 AM EDT 10:25:00 AM [facility] [employer] HC RENAL FUNCTION HC RENAL FUNCTION Routine 12/22/2018 0 12/22/2018 Bon PANEL PANEL 3:24 AM EDT 07:24:00 AM [facility] [employer] MAGNESIUM MAGNESIUM Routine 12/22/2018 12/22/2018 Bon 3:24 AM EDT 07:24:00 AM [facility] [employer] HC GLUCOSE POCT HC GLUCOSE POCT Routine 12/22/201812/22 Bon 12:04 AM 04:04:00 AM [facility] GLUCOSE, POC GLUCOSE, POC Routine 12/21/2018 12/21/2018 Bon 6:05 PM EDT 10:05:00 PM [employer] HC GLUCOSE POCT HC GLUCOSE POCT Routine 12/21/201812/21 Bon 1:51 PM EDT 05:51:[address] [employer] [address] ABD PELV WO CT ABD PELV WO Routine 12/21/2018 019 Bon CONT CONT 11:47 AM 03:47:29 PM [facility] [employer] HC RENAL FUNCTION HC RENAL FUNCTION Routine 12/21/2018 0 12/21/2018 Bon PANEL PANEL 3:15 AM EDT 07:15:00 AM [facility] MAGNESIUM MAGNESIUM Routine 12/21/2018 12/21/2018 Bon 3:15 AM EDT 07:15:00 AM [facility] GLUCOSE, POC GLUCOSE, POC Routine 12/20/2018 12/21/2018 Bon 11:27 PM 03:27:00 AM Sec [facility] GLUCOSE, POC GLUCOSE, POC Routine 12/20/2018 12/20/2018 Bon 6:06 PM EDT 10:06:00 PM [facility] GLUCOSE, POC GLUCOSE, POC Routine 12/20/2018 12/20/2018 Bon 12:07 PM 04:07:00 PM Sec [facility] HC GLUCOSE POCT HC GLUCOSE POCT Routine 12/20/201812/20 Bon 5:42 AM EDT 09:42:00 AM [facility] CBC WITH AUTOMATED CBC WITH AUTOMATED Routine 12/20/2018 12/20/2018 Bon DIFF DIFF 3:25 AM EDT 07:25:00 AM [facility] HC RENAL FUNCTION HC RENAL FUNCTION Routine 12/20/2018 0 12/20/2018 Bon PANEL PANEL 3:25 AM EDT 07:25:00 AM [facility] MAGNESIUM MAGNESIUM Routine 12/20/2018 12/20/2018 Bon 3:25 AM EDT 07:25:00 AM [facility] sc[employer] mobility [facility] RT--CHEST RT--CHEST Routine 12/20/2018 12/20/2018 Bon PHYSIOTHERAPY PHYSIOTHERAPY 12:05 AM 04:05:53 AM [facility] (CPT) (CPT) [facility] GLUCOSE, POC GLUCOSE, POC Routine 12/19/2018 12/20/2018 Bon 11:24 PM 03:24:00 AM Sec ours [facility] GLUCOSE, POC GLUCOSE, POC Routine 12/19/2018 12/19/2018 Bon 4:43 PM EDT 08:43:00 PM [facility] SURGICAL PATHOLOGY SURGICAL PATHOLOGY Routine 12/19/2018 12/19/2018 Bon 1:12 PM EDT 05:12:00 PM [facility] HC CULTURE BODY HC CULTURE BODY Routine 12/19/201812/19 Bon FLUID FLUID 12:30 PM 04:30:00 PM [facility] HC CULTURE HC CULTURE Routine 12/19/2018 12/19/2018 Bon ANAEROBIC ANAEROBIC 12:30 PM 04:30:00 PM [facility] HC BODY FLD CELL HC BODY FLD CELL Routine 12/19/201809/2018 Bon COUNT W/O DIFF COUNT W/O DIFF 12:30 PM 04:30:00 PM [facility] [employer] [facility] CT THORACENTESIS CT THORACENTESIS Routine 12/19/201809/2018 Bon INSRT CHEST TUBE INSRT CHEST TUBE 12:17 PM 04:17 :52 PM [facility] GLUCOSE, POC GLUCOSE, POC Routine 12/19/2018 12/19/2018 Bon 7:35 AM EDT 11:35:00 AM [facility] GLUCOSE, POC GLUCOSE, POC Routine 12/19/2018 12/19/2018 Bon 7:03 AM EDT 11:03:00 AM [facility] [employer] [facility] PROTHROMBIN TIME + PROTHROMBIN TIME + Routine 12/19/2018 12/19/2018 Bon INR INR 3:28 AM EDT 07:28:00 AM [facility] HC RENAL FUNCTION HC RENAL FUNCTION Routine 12/19/2018 0 12/19/2018 Bon PANEL PANEL 3:28 AM EDT 07:28:00 AM [facility] [employer] [facility] MAGNESIUM MAGNESIUM Routine 12/19/2018 12/19/2018 Bon 3:28 AM EDT 07:28:00 AM [facility] [employer] [facility] HC GLUCOSE POCT HC GLUCOSE POCT Routine 12/19/201812/19 Bon 2:04 AM EDT 06:04:00 AM [facility] sc[employer] mobility [facility] PROTHROMBIN TIME + PROTHROMBIN TIME + STAT 12/18/2018 12/18/2018 Bon INR INR 1:45 PM EDT 05:45:00 PM [facility] GLUCOSE, POC GLUCOSE, POC Routine 12/18/2018 12/18/2018 Bon 1:35 PM EDT 05:35:00 PM [facility] [employer] XR CHEST PORT XR CHEST PORT Routine 12/18/2018 9 Bon 12:52 PM 04:52:19 PM Sec [facility] [employer] HC GLUCOSE POCT HC GLUCOSE POCT Routine 12/18/201812/18 Bon 5:29 AM EDT 09:29:00 AM [facility] [employer] HC RENAL FUNCTION HC RENAL FUNCTION Routine 12/18/2018 0 12/18/2018 Bon PANEL PANEL 4:21 AM EDT 08:21:00 AM [facility] [employer] MAGNESIUM MAGNESIUM Routine 12/18/2018 12/18/2018 Bon 4:21 AM EDT 08:21:00 AM [facility] [employer] CTA UP EXT LT W CTA UP EXT LT W STAT 12/18/201812/18 Bon CONT CONT 2:43 AM EDT 06:43:45 AM [facility] [employer] CT CHEST WO CONT CT CHEST WO CONT Routine 12/18/201808/2018 Bon 2:43 AM EDT 06:43:[address] [facility] GLUCOSE, POC GLUCOSE, POC Routine 12/17/2018 12/18/2018 Bon 11:55 PM 03:55:00 AM [facility] [employer] GLUCOSE, POC GLUCOSE, POC Routine 12/17/2018 12/17/2018 Bon 6:36 PM EDT 10:36:00 PM [facility] [employer] HC BLOOD GAS W HC BLOOD GAS W Routine 12/17/2018 019 Bon CALC O2/ARTERIAL CALC O2/ARTERIAL 2:43 PM EDT 06 :43:00 PM [facility] [employer] GLUCOSE, POC GLUCOSE, POC Routine 12/17/2018 12/17/2018 Bon 1:28 PM EDT 05:28:00 PM [facility] [employer] GLUCOSE, POC GLUCOSE, POC Routine 12/17/2018 12/17/2018 Bon 5:55 AM EDT 09:55:00 AM [facility] [employer] CBC WITH AUTOMATED CBC WITH AUTOMATED Routine 12/17/2018 12/17/2018 Bon DIFF DIFF 3:01 AM EDT 07:01:00 AM [facility] [employer] HC RENAL FUNCTION HC RENAL FUNCTION Routine 12/17/2018 0 12/17/2018 Bon PANEL PANEL 3:01 AM EDT 07:01:00 AM [facility] MAGNESIUM MAGNESIUM Routine 12/17/2018 12/17/2018 Bon 3:01 AM EDT 07:01:00 AM [facility] HC GLUCOSE POCT HC GLUCOSE POCT Routine 12/16/201812/17 Bon 11:57 PM 03:57:00 AM Sec ours [facility] GLUCOSE, POC GLUCOSE, POC Routine 12/16/2018 12/16/2018 Bon 5:39 PM EDT 09:39:00 PM [facility] GLUCOSE, POC GLUCOSE, POC Routine 12/16/2018 12/16/2018 Bon 12:17 PM 04:17:00 PM Sec eugene [facility] HC GLUCOSE POCT HC GLUCOSE POCT Routine 12/16/201812/16 Bon 6:34 AM EDT 10:34:00 AM [facility] CBC WITH AUTOMATED CBC WITH AUTOMATED Routine 12/16/2018 12/16/2018 Bon DIFF DIFF 3:17 AM EDT 07:17:00 AM [facility] HC RENAL FUNCTION HC RENAL FUNCTION Routine 12/16/2018 0 12/16/2018 Bon PANEL PANEL 3:17 AM EDT 07:17:00 AM [facility] MAGNESIUM MAGNESIUM Routine 12/16/2018 12/16/2018 Bon 3:17 AM EDT 07:17:00 AM [facility] GLUCOSE, POC GLUCOSE, POC Routine 12/15/2018 12/16/2018 Bon 11:28 PM 03:28:00 AM Sec ours [facility] GLUCOSE, POC GLUCOSE, POC Routine 12/15/2018 12/15/2018 Bon 4:09 PM EDT 08:09:00 PM [facility] [employer] HC GLUCOSE POCT HC GLUCOSE POCT Routine 12/15/201812/15 Bon 11:16 AM 03:16:00 PM Sec ours [facility] [employer] HC BLOOD GAS W HC BLOOD GAS W Routine 12/15/2018 019 Bon CALC O2/ARTERIAL CALC O2/ARTERIAL 6:22 AM EDT 10 :22:00 AM [employer] CBC WITH AUTOMATED CBC WITH AUTOMATED Routine 12/15/2018 12/15/2018 Bon DIFF DIFF 3:49 AM EDT 07:49:00 AM [employer] HC RENAL FUNCTION HC RENAL FUNCTION Routine 12/15/2018 0 12/15/2018 Bon PANEL PANEL 3:49 AM EDT 07:49:00 AM [employer] MAGNESIUM MAGNESIUM Routine 12/15/2018 12/15/2018 Bon 3:49 AM EDT 07:49:00 AM [employer] HC GLUCOSE POCT HC GLUCOSE POCT Routine 12/14/201812/14 Bon 11:59 AM 03:59:00 PM [facility] Mitralign [facility] HospitalAmericaPre[facility] HC BLOOD GAS W HC BLOOD GAS W Routine 12/14/2018 019 Bon CALC O2/ARTERIAL CALC O2/ARTERIAL 5:54 AM EDT 09 :54:00 AM [employer] CBC WITH AUTOMATED CBC WITH AUTOMATED Routine 12/14/2018 12/14/2018 Bon DIFF DIFF 4:48 AM EDT 08:48:00 AM [employer] HC RENAL FUNCTION HC RENAL FUNCTION Routine 12/14/2018 0 12/14/2018 Bon PANEL PANEL 4:48 AM EDT 08:48:00 AM [employer] MAGNESIUM MAGNESIUM Routine 12/14/2018 12/14/2018 Bon 4:48 AM EDT 08:48:[address] [employer] [address] CHEST WO CONT CT CHEST WO CONT Routine 12/13/2018 Bon 5:54 PM EDT 09:54:43 PM [employer] CBC WITH AUTOMATED CBC WITH AUTOMATED Routine 12/13/2018 12/13/2018 Bon DIFF DIFF 4:24 AM EDT 08:24:00 AM [employer] HC RENAL FUNCTION HC RENAL FUNCTION Routine 12/13/2018 0 12/13/2018 Bon PANEL PANEL 4:24 AM EDT 08:24:00 AM [employer] MAGNESIUM MAGNESIUM Routine 12/13/2018 12/13/2018 Bon 4:24 AM EDT 08:24:00 AM [employer] HC LACTIC ACID HC LACTIC ACID Routine 12/13/2018 019 Bon 4:24 AM EDT 08:24:00 AM [facility] HC LACTIC ACID HC LACTIC ACID STAT 12/13/2018 019 Bon 12:30 AM 04:30:00 AM [facility] XR CHEST PORT STAT 12/12/2018 9 Bon 9:35 PM EDT 01:35:17 AM [facility] sc[employer] mobility [facility] HC BLOOD GAS W HC BLOOD GAS W Routine 12/12/2018 019 Bon CALC O2/ARTERIAL CALC O2/ARTERIAL 8:07 PM EDT 12 :07:00 AM [facility] URINALYSIS W/ RFLX URINALYSIS W/ RFLX STAT 12/12/2018 12/13/2018 Bon MICROSCOPIC MICROSCOPIC 8:04 PM EDT 12:04:00 AM [facility] CULTURE, URINE CULTURE, URINE Routine 12/12/2018 019 Bon 8:04 PM EDT 12:04:00 AM [facility] XR CHEST PORT XR CHEST PORT STAT 12/12/2018 9 Bon 7:51 PM EDT 11:51:36 PM [facility] HC CULTURE BLOOD HC CULTURE BLOOD STAT 12/12/2018 Bon 7:40 PM EDT 11:40:00 PM [facility] HC CULTURE BLOOD HC CULTURE BLOOD STAT 12/12/2018 Bon 7:40 PM EDT 11:40:00 PM [facility] [employer] [facility] PROTHROMBIN TIME + PROTHROMBIN TIME + STAT 12/12/2018 12/12/2018 Bon INR INR 7:40 PM EDT 11:40:00 PM [facility] [employer] [facility] CBC WITH AUTOMATED CBC WITH AUTOMATED STAT 12/12/2018 12/12/2018 Bon DIFF DIFF 7:40 PM EDT 11:40:00 PM [facility] [employer] [facility] HC PARTIAL HC PARTIAL STAT 12/12/2018 12/12/2018 Bon THROMBOPLASTIN/ THROMBOPLASTIN/ 7:40 PM EDT 11:4 0:00 PM [facility] PTT PTT EDT [employer] [facility] HC TROPONIN I HC TROPONIN I STAT 12/12/2018 9 Bon QUANT QUANT 7:40 PM EDT 11:40:00 PM [facility] [employer] [facility] METABOLIC PANEL, METABOLIC PANEL, STAT 12/12/2018 Bon COMPREHENSIVE COMPREHENSIVE 7:40 PM EDT 11:40:00 PM [facility] [employer] [facility] HC LACTIC ACID HC LACTIC ACID STAT 12/12/2018 019 Bon 7:40 PM EDT 11:40:[address] [facility] CK CK STAT 12/12/2018 12/12/2018 Jeff n 7:40 PM EDT 11:40:00 PM [facility] sc[employer] mobility [facility] BNP BNP STAT 12/12/2018 12/12/2018 Jeff n 7:40 PM EDT 11:40:00 PM [facility] [employer] [facility] HC GLUCOSE POCT HC GLUCOSE POCT Routine 12/12/201812/12 Bon 7:20 PM EDT 11:20:00 PM [facility] sc[employer] mobility [facility] EKG, 12 LEAD, EKG, 12 LEAD, STAT 12/12/2018 9 Bon INITIAL INITIAL 7:13 PM EDT 11:13:[address] [facility] CBC WITH AUTOMATED CBC WITH AUTOMATED Routine 11/27/2018 11/27/2018 Bon DIFF DIFF 6:02 AM EDT 10:02:00 AM [facility] sc[employer] mobility [facility] METABOLIC PANEL, METABOLIC PANEL, Routine 11/27/2018 Bon BASIC BASIC 6:02 AM EDT 10:02:00 AM [facility] sc[employer] mobility [facility] MAGNESIUM MAGNESIUM Routine 11/27/2018 11/27/2018 Bon 6:02 AM EDT 10:02:00 AM [facility]ign[facility] HospitalAmericaSpe[facility] MAGNESIUM MAGNESIUM Routine 11/26/2018 11/26/2018 Bon 5:06 AM EDT 09:06:00 AM [facility] [employer] [facility] HC VANCOMYCIN HC VANCOMYCIN Timed 11/25/2018 9 Bon TROUGH TROUGH 10:50 PM 02:50:00 AM [facility] [employer] [facility] CBC WITH AUTOMATED CBC WITH AUTOMATED Routine 11/25/2018 11/25/2018 Bon DIFF DIFF 9:55 AM EDT 01:55:00 PM [facility] [employer] METABOLIC PANEL, METABOLIC PANEL, Routine 11/25/2018 Bon COMPREHENSIVE COMPREHENSIVE 9:55 AM EDT 01:55:00 PM [facility] [employer] MAGNESIUM MAGNESIUM Routine 11/25/2018 11/25/2018 Bon 9:55 AM EDT 01:55:00 PM [facility] [employer] HC BLOOD GAS W HC BLOOD GAS W Routine 11/25/2018 019 Bon CALC O2/ARTERIAL CALC O2/ARTERIAL 9:06 AM EDT 01 :06:00 PM [facility] XR CHEST SNGL V XR CHEST SNGL V Routine 11/25/201811/25 Bon 7:22 AM EDT 11:22:40 AM [employer] CBC WITH AUTOMATED CBC WITH AUTOMATED Routine 11/24/2018 11/24/2018 Bon DIFF DIFF 8:10 AM EDT 12:10:00 PM [facility] [employer] METABOLIC PANEL, METABOLIC PANEL, Routine 11/24/201803/2019 Bon COMPREHENSIVE COMPREHENSIVE 8:10 AM EDT 12:10:00 PM [facility] [employer] MAGNESIUM MAGNESIUM Routine 11/24/2018 11/24/2018 Bon 8:10 AM EDT 12:10:00 PM [employer] CBC WITH AUTOMATED CBC WITH AUTOMATED Routine 11/23/2018 11/23/2018 Bon DIFF DIFF 5:40 AM EDT 09:40:00 AM [facility] [employer] METABOLIC PANEL, METABOLIC PANEL, Routine 11/23/201802/2019 Bon COMPREHENSIVE COMPREHENSIVE 5:40 AM EDT 09:40:00 AM [employer] MAGNESIUM MAGNESIUM Routine 11/23/2018 11/23/2018 Bon 5:40 AM EDT 09:40:00 AM [employer] HC BLOOD GAS W HC BLOOD GAS W Routine 11/22/2018 019 Bon CALC O2/ARTERIAL CALC O2/ARTERIAL 12:35 PM 04:35 :00 PM [facility] [employer] XR ABD (KUB) XR ABD (KUB) Routine 11/22/2018 11/22/2018 Bon 8:03 AM EDT 12:03:33 PM [facility] [employer] [facility] XR CHEST SNGL V XR CHEST SNGL V Routine 11/22/201811/22 Bon 8:03 AM EDT 12:03:33 PM [facility] [employer] [facility] CBC WITH AUTOMATED CBC WITH AUTOMATED Routine 11/22/2018 11/22/2018 Bon DIFF DIFF 6:00 AM EDT 10:00:00 AM [facility] [employer] [facility] METABOLIC PANEL, METABOLIC PANEL, Routine 11/22/201801/2019 Bon COMPREHENSIVE COMPREHENSIVE 6:00 AM EDT 10:00:00 AM [facility] HospitalAmericaSpe[facility] MAGNESIUM MAGNESIUM Routine 11/22/2018 11/22/2018 Bon 6:00 AM EDT 10:00:00 AM [facility] [employer] [facility] XR ABD PORT 1 V XR ABD PORT 1 V Routine 11/21/201812/2018 Bon 4:52 AM EDT 08:52:21 AM [facility] [employer] [facility] XR CHEST PORT XR CHEST PORT Routine 11/21/2018 9 Bon 4:50 AM EDT 08:50:36 AM [facility] HospitalAmericaSpe[facility] CBC WITH AUTOMATED CBC WITH AUTOMATED Routine 11/21/2018 11/21/2018 Bon DIFF DIFF 4:20 AM EDT 08:20:00 AM [facility] METABOLIC PANEL, METABOLIC PANEL, Routine 11/21/201812/2018 Bon COMPREHENSIVE COMPREHENSIVE 4:20 AM EDT 08:20:00 AM [facility] [employer] [facility] MAGNESIUM MAGNESIUM Routine 11/21/2018 11/21/2018 Bon 4:20 AM EDT 08:20:00 AM [facility] [employer] [facility] CBC WITH AUTOMATED CBC WITH AUTOMATED Routine 11/20/2018 11/20/2018 Bon DIFF DIFF 4:16 PM EDT 08:16:00 PM [facility] HospitalAmericaSpe[facility] XR ABD PORT 1 V XR ABD PORT 1 V Routine 11/20/201811/2018 Bon 11:55 AM 03:55:57 PM [facility] HC VANCOMYCIN HC VANCOMYCIN Routine 11/20/2018 9 Bon TROUGH TROUGH 11:10 AM 03:10:00 PM Sec ours [facility] CULTURE, URINE CULTURE, URINE Routine 11/20/2018 019 Bon 9:00 AM EDT 01:00:00 PM [facility] [employer] [facility] CBC WITH AUTOMATED CBC WITH AUTOMATED Routine 11/20/2018 11/20/2018 Bon DIFF DIFF 4:00 AM EDT 08:00:00 AM [facility] METABOLIC PANEL, METABOLIC PANEL, Routine 11/20/201811/2018 Bon COMPREHENSIVE COMPREHENSIVE 4:00 AM EDT 08:00:00 AM [facility] MAGNESIUM MAGNESIUM Routine 11/20/2018 11/20/2018 Bon 4:00 AM EDT 08:00:00 AM [facility] HC GLUCOSE POCT HC GLUCOSE POCT Routine 11/19/201811/20 Bon 10:07 PM 02:07:00 AM [facility] eugene [facility] CBC W/O DIFF CBC W/O DIFF Routine 11/19/2018 11/19/2018 Bon 7:43 PM EDT 11:43:00 PM [facility] [employer] [facility] METABOLIC PANEL, METABOLIC PANEL, Routine 11/19/201810/2018 Bon COMPREHENSIVE COMPREHENSIVE 7:43 PM EDT 11:43:00 PM [facility] [employer] [facility] XR ABD (KUB) XR ABD (KUB) Routine 11/19/2018 11/19/2018 Bon 4:05 PM EDT 08:05:00 PM [facility] [employer] mobility [facility] HC BLOOD GAS W HC BLOOD GAS W Routine 11/19/2018 019 Bon CALC O2/ARTERIAL CALC O2/ARTERIAL 12:41 PM 04:41 :00 PM [facility] mobility [facility] XR CHEST PORT XR CHEST PORT Routine 11/19/2018 9 Bon 11:06 AM 03:06:07 PM [facility] sc[facility] mobility [facility] CBC WITH AUTOMATED CBC WITH AUTOMATED Routine 11/19/2018 11/19/2018 Bon DIFF DIFF 6:05 AM EDT 10:05:00 AM [facility] [employer] mobility [facility] METABOLIC PANEL, METABOLIC PANEL, Routine 11/19/201810/2018 Bon COMPREHENSIVE COMPREHENSIVE 6:05 AM EDT 10:05:00 AM [facility] MAGNESIUM MAGNESIUM Routine 11/19/2018 11/19/2018 Bon 6:05 AM EDT 10:05:00 AM [facility] CBC WITH AUTOMATED CBC WITH AUTOMATED Routine 11/18/2018 11/18/2018 Bon DIFF DIFF 7:42 AM EDT 11:42:00 AM [facility] METABOLIC PANEL, METABOLIC PANEL, Routine 11/18/201809/2018 Bon COMPREHENSIVE COMPREHENSIVE 7:42 AM EDT 11:42:00 AM [facility] MAGNESIUM MAGNESIUM Routine 11/18/2018 11/18/2018 Bon 7:42 AM EDT 11:42:00 AM [facility] GASTROSTOMY TUBE GASTROSTOMY TUBE 11/17/2018 failure 08/2018 Bon PLACEMENT (OPEN) PLACEMENT (OPEN) 12:59 PM to thrive 04: 59:00 PM [facility] 11/17/2018 Healt h 06:53:00 PM [facility]T [employer] CBC WITH AUTOMATED CBC WITH AUTOMATED Routine 11/17/2018 11/17/2018 Bon DIFF DIFF 6:06 AM EDT 10:06:00 AM [facility] PHOSPHORUS PHOSPHORUS Routine 11/17/2018 11/17/2018 Bon 6:06 AM EDT 10:06:00 AM [facility] METABOLIC PANEL, METABOLIC PANEL, Routine 11/17/201808/2018 Bon COMPREHENSIVE COMPREHENSIVE 6:06 AM EDT 10:06:00 AM [facility] MAGNESIUM MAGNESIUM Routine 11/17/2018 11/17/2018 Bon 6:06 AM EDT 10:06:00 AM [facility] CBC WITH AUTOMATED CBC WITH AUTOMATED Routine 11/16/2018 11/16/2018 Bon DIFF DIFF 7:25 AM EDT 11:25:00 AM [facility] PHOSPHORUS PHOSPHORUS Routine 11/16/2018 11/16/2018 Bon 7:25 AM EDT 11:25:00 AM [facility] METABOLIC PANEL, METABOLIC PANEL, Routine 11/16/201807/2018 Bon COMPREHENSIVE COMPREHENSIVE 7:25 AM EDT 11:25:00 AM [facility] MAGNESIUM MAGNESIUM Routine 11/16/2018 11/16/2018 Bon 7:25 AM EDT 11:25:00 AM [facility] [employer] [facility] CBC WITH AUTOMATED CBC WITH AUTOMATED Routine 11/15/2018 11/15/2018 Bon DIFF DIFF 5:55 AM EDT 09:55:00 AM [facility] PHOSPHORUS PHOSPHORUS Routine 11/15/2018 11/15/2018 Bon 5:55 AM EDT 09:55:00 AM [facility] [employer] [facility] METABOLIC PANEL, METABOLIC PANEL, Routine 11/15/201806/2018 Bon COMPREHENSIVE COMPREHENSIVE 5:55 AM EDT 09:55:00 AM [facility] [employer] [facility] MAGNESIUM MAGNESIUM Routine 11/15/2018 11/15/2018 Bon 5:55 AM EDT 09:55:00 AM [facility] CBC WITH AUTOMATED CBC WITH AUTOMATED Routine 11/14/2018 11/14/2018 Bon DIFF DIFF 5:33 AM EDT 09:33:00 AM [facility] [employer] [facility] PHOSPHORUS PHOSPHORUS Routine 11/14/2018 11/14/2018 Bon 5:33 AM EDT 09:33:00 AM [facility] METABOLIC PANEL, METABOLIC PANEL, Routine 11/14/201805/2018 Bon COMPREHENSIVE COMPREHENSIVE 5:33 AM EDT 09:33:00 AM [facility] [employer] [facility] MAGNESIUM MAGNESIUM Routine 11/14/2018 11/14/2018 Bon 5:33 AM EDT 09:33:00 AM [facility] scoo mobility [facility] 2D ECHO COMPLETE 2D ECHO COMPLETE Routine 11/14/201805/2018 Bon ADULT (TTE) W OR ADULT (TTE) W OR 12:00 AM 04:00 :00 AM [facility] WO CONTRAST WO CONTRAST EDSaint Francis Medical CenterSpeek [facility] CBC WITH AUTOMATED CBC WITH AUTOMATED Routine 11/13/2018 11/13/2018 Bon DIFF DIFF 6:35 AM EDT 10:35:00 AM [facility] [employer] [facility] PHOSPHORUS PHOSPHORUS Routine 11/13/2018 11/13/2018 Bon 6:35 AM EDT 10:35:00 AM [facility] [employer] [facility] METABOLIC PANEL, METABOLIC PANEL, Routine 11/13/201804/2018 Bon COMPREHENSIVE COMPREHENSIVE 6:35 AM EDT 10:35:[address] [facility]id[facility] MAGNESIUM MAGNESIUM Routine 11/13/2018 11/13/2018 Bon 6:35 AM EDT 10:35:00 AM [facility] [employer] [facility] CBC WITH AUTOMATED CBC WITH AUTOMATED Routine 11/12/2018 11/12/2018 Bon DIFF DIFF 7:20 AM EDT 11:20:00 AM [facility] [employer] [facility] PHOSPHORUS PHOSPHORUS Routine 11/12/2018 11/12/2018 Bon 7:20 AM EDT 11:20:00 AM [facility] [employer] [facility] METABOLIC PANEL, METABOLIC PANEL, Routine 11/12/2018 Bon COMPREHENSIVE COMPREHENSIVE 7:20 AM EDT 11:20:00 AM [facility] HospitalAmericaEquid[facility] MAGNESIUM MAGNESIUM Routine 11/12/2018 11/12/2018 Bon 7:20 AM EDT 11:20:00 AM [facility] [employer] [facility] HC LACTIC ACID HC LACTIC ACID Routine 11/12/2018 019 Bon 7:20 AM EDT 11:20:00 AM [facility] [employer] [facility] METABOLIC PANEL, METABOLIC PANEL, Routine 11/11/2018 Bon COMPREHENSIVE COMPREHENSIVE 6:48 AM EDT 10:48:00 AM [facility] HospitalAmericaSpe[facility] CBC WITH AUTOMATED CBC WITH AUTOMATED Routine 11/10/2018 11/10/2018 Bon DIFF DIFF 5:28 AM EDT 09:28:00 AM [facility] [employer] [facility] METABOLIC PANEL, METABOLIC PANEL, Routine 11/10/2018 Bon COMPREHENSIVE COMPREHENSIVE 5:28 AM EDT 09:28:00 AM [facility] HospitalAmericaSpe[facility] 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 11/09/2018 9 Bon STREP GROUPB AG STREP GROUPB AG 7:00 AM EDT 11:0 0:00 AM [facility] [employer] [facility] PROTHROMBIN TIME + PROTHROMBIN TIME + Routine 11/09/2018 11/09/2018 Bon INR INR 6:20 AM EDT 10:20:00 AM [facility] HospitalAmerica[facility] CBC WITH AUTOMATED CBC WITH AUTOMATED Routine 11/09/2018 11/09/2018 Bon DIFF DIFF 6:20 AM EDT 10:20:00 AM [facility] HospitalAmerica[facility] METABOLIC PANEL, METABOLIC PANEL, Routine 11/09/2018 Bon COMPREHENSIVE COMPREHENSIVE 6:20 AM EDT 10:20:00 AM [facility] [employer] MAGNESIUM MAGNESIUM Routine 11/09/2018 11/09/2018 Bon 6:20 AM EDT 10:20:00 AM [facility] [employer] URINALYSIS W/ RFLX URINALYSIS W/ RFLX Routine 11/09/2018 11/09/2018 Bon MICROSCOPIC MICROSCOPIC 5:00 AM EDT 09:00:00 AM [facility] [employer] HC LACTIC ACID HC LACTIC ACID Routine 11/08/2018 019 Bon 8:20 PM EDT 12:20:00 AM [facility] [employer] HC EIA QL SGL HC EIA QL SGL Routine 11/08/2018 9 Bon ANTIGEN ANTIGEN 11:45 AM 03:45:00 PM [facility] EDSaint Francis Medical CenterPrevacus TROPONIN I TROPONIN I Timed 11/08/2018 11/08/2018 Bon 8:14 AM EDT 12:14:00 PM [facility] [employer] HC LACTIC ACID HC LACTIC ACID Routine 11/08/2018 019 Bon 8:13 AM EDT 12:13:00 PM [facility] [employer] CBC WITH AUTOMATED CBC WITH AUTOMATED Routine 11/08/2018 11/08/2018 Bon DIFF DIFF 7:20 AM EDT 11:20:00 AM [facility] [employer] HC TROPONIN I HC TROPONIN I Timed 11/08/2018 9 Bon QUANT QUANT 7:20 AM EDT 11:20:00 AM [facility] [employer] MAGNESIUM MAGNESIUM Routine 11/08/2018 11/08/2018 Bon 7:20 AM EDT 11:20:00 AM [facility] [employer] HC LACTIC ACID HC LACTIC ACID STAT 11/08/2018 019 Bon 3:40 AM EDT 07:40:00 AM [facility] [employer] CTA CHEST W OR W CTA CHEST W OR W STAT 11/08/2018 Bon WO CONT WO CONT 12:25 AM 04:25:32 AM [facility] EDT ED [employer] HC BLOOD GAS W HC BLOOD GAS W Routine 11/07/2018 019 Bon CALC O2/ARTERIAL CALC O2/ARTERIAL 9:23 PM EDT 01 :23:00 AM [facility] scoo mobility [facility] HC CULTURE BLOOD HC CULTURE BLOOD STAT 11/07/2018 Bon 8:10 PM EDT 12:10:00 AM [facility] [employer] [facility] PROTHROMBIN TIME + PROTHROMBIN TIME + STAT 11/07/2018 11/08/2018 Bon INR INR 8:10 PM EDT 12:10:00 AM [facility] [employer] [facility] CBC WITH AUTOMATED CBC WITH AUTOMATED STAT 11/07/2018 11/08/2018 Bon DIFF DIFF 8:10 PM EDT 12:10:00 AM [facility] sc[employer] mobility [facility] HC PARTIAL HC PARTIAL STAT 11/07/2018 11/08/2018 Bon THROMBOPLASTIN/ THROMBOPLASTIN/ 8:10 PM EDT 12:1 0:00 AM [facility] [employer] [facility] HC TROPONIN I HC TROPONIN I STAT 11/07/2018 9 Bon QUANT QUANT 8:10 PM EDT 12:10:00 AM [facility] METABOLIC PANEL, METABOLIC PANEL, STAT 11/07/2018 Bon COMPREHENSIVE COMPREHENSIVE 8:10 PM EDT 12:10:00 AM [facility] sc[employer] mobility [facility] MAGNESIUM MAGNESIUM STAT 11/07/2018 11/08/2018 Bon 8:10 PM EDT 12:10:00 AM [facility] [employer] [facility] HC LACTIC ACID HC LACTIC ACID STAT 11/07/2018 019 Bon 8:10 PM EDT 12:10:00 AM [facility] scoo mobility [facility] BNP BNP STAT 11/07/2018 11/08/2018 Jeff n 8:10 PM EDT 12:10:[address] [facility] HC CULTURE BLOOD HC CULTURE BLOOD STAT 11/07/2018 Bon 8:00 PM EDT 12:00:[address] [facility]Spe[facility] XR CHEST PORT XR CHEST PORT STAT 11/07/2018 9 Bon 7:55 PM EDT 11:55:[address] [facility] CampusPrevacus RT--OXYGEN CANNULA RT--OXYGEN CANNULA STAT 11/07/2018 11/07/2018 Bon 7:27 PM EDT 11:27:29 PM [facility] ED[facility] EKG, 12 LEAD, EKG, 12 LEAD, STAT 11/07/2018 9 Bon INITIAL INITIAL 7:15 PM EDT 11:15:39 PM [facility] EDT [facility] Results ID Date Data Source [id number] 01/04/2020 12:00:00 AM EDT [facility] Name Value Range Interpretation Code Description Data Harriett rce(s) Supporting Document(s ) 2018-nCoV [facility] RNA XXX DAVID+probe- Imp This lab [facility] and reported by [employer] ID Date Data Source [id number] 12/31/2019 10:30:00 AM EDT [facility] Name Value Range Interpretation Description Data Sup porting Code Source(s) Document(s ) SARS [facility] coronavirus 2 RNA This lab was ordered by [facility] and reported by [facility]. ID Date Data Source [id number] 12/22/2019 10:45:00 AM EDT [facility] Name Value Range Interpretation Description Data Sup porting Code Source(s) Document(s ) SARS [facility] coronavirus 2 RNA This lab was ordered by [facility] and reported by [facility]. ID Date Data Source [id number] 12/05/2019 10:35:00 AM EDT [facility] Name Value Range Interpretation Description Data Sup porting Code Source(s) Document(s ) SARS [facility] coronavirus 2 RNA This lab was ordered by [facility] and reported by [facility]. ID Date Data Source [id number] 12/03/2019 12:00:00 AM EDT [facility] Name Value Range Interpretation Code Description Data Harriett rce(s) Supporting Document(s ) 2018-nCoV [facility] RNA XXX DAVID+probe- Imp This lab was ordered by [facility] [employer] and reported by [employer] ID Date Data Source [id number] 12/01/2019 12:56:00 PM EDT [facility] Name Value Range Interpretation Code Description Data Harriett rce(s) Supporting Document(s ) SARS-CoV-2 [facility] RNA [facility] Ql DAVID+probe This lab was ordered by [facility] a nd reported by [facility]. ID Date Data Source [id number] 11/11/2019 01:42:00 PM EDT [facility] Name Value Range Interpretation Code Description Data Harriett rce(s) Supporting Document(s ) SARS-CoV-2 [facility] Ql DAVID+probe This lab was ordered by [facility] a nd reported by [facility]. ID Date Data Source [id number] 10/25/2019 03:06:14 PM EDT [facility] Progress NotePatient: Evelio Carlin Sex: male DOA: 11/07/2018Date of : 1950 Age: 68 y.o. :[id number]:Reyes Carlin is 68 y.o. male .who was [...] care Past Medical History:Diagnosis Date Chronic obstruct britni [...] Supporting Document(s ) ID Date Data Source [id number] 10/25/2019 02:46:50 PM EDT [facility] Progress NotePatient: Evelio Carlin Sex: male DOA: 11/07/2018Date of : 1950 Age: 68 y.o. :[id number]:Reyes Carlin is 68 y.o. male .who was [...] lab exists for component: IN[facility] Recent [facility] [id number] 7.50*PCO2 53 *PO2 69*HCO3 41*Component Value Date/Time [...] Supporting Document(s ) ID Date Data Source [id number] 10/25/2019 02:07:49 PM EDT [facility] Progress NotePatient: Evelio Carlin Sex: male DOA: 11/07/2018Date of : 1950 Age: 68 y.o. :[id number]:Reyes Carlin is 68 y.o. male who was [...] 235PH 7.45PCO2 38PO2 73*HCO3 2 6CULTURE, BLOOD [[id number]] (Order [id number])MicrobiologyDate: 11/07/2018 D epartment: [facility] Surg Released By/Authorizing: Lias Powell MD (auto -released)Specimen Information: Blood Component Value Flag Ref Range Units StatusSpecial Requests: FinalNO SPECIAL REQUESTSCulture result: NO GROW TH 5 DAYS FinalXr Chest Sngl VResult Date: 11/25/2018AP portable film of the c hest clinical indication pneumonia Study is [facility] Study demonstrates a left pleuraleffusion [...] subsegmentalatelectasis. Report Electron ically Signed By: Pawel Zafra M.D. -11/08/2018 12:40 AMXr Chest PortResult D [...] Supporting Document(s ) ID Date Data Source [id number] 10/25/2019 01:46:46 PM EDT [facility] Progress NotePatient: Evelio Carlin Sex: male DOA: 11/07/2018Date of : 1950 Age: 68 y.o. :[id number]:Reyes Carlin is 68 y.o. male .who was [...] Labs PH 7.45PCO2 38PO2 73*HCO3 26CULTURE, URINE [[id number]] (Orde r [id number])MicrobiologyDate: 11/20/2018 Department: [facility] Released By /Authorizing: Letty Kaye MD (auto-released)Specimen Information: Fo ronni Specimen; Urine Component Value Flag Ref Range Units StatusSpecial Requests : FinalNO SPECIAL REQUESTSCulture result: NO GROWTH 2 DAYSCULTURE, BLOOD [[id number]] (Order [id number])MicrobiologyDate: 11/07/2018 Department: [facility] S[facility] Released [...] POA COPD (chronic obstructive pulm onary disease) ([facility]) ICD-10-CM: J44.9ICD-9-CM: 496 11/08/2018 Unknown [place] respiratory distress ICD-10-CM: R06.03ICD-9-CM: 518.82 11/08/2018 Unknow [...] Supporting Document(s ) ID Date Data Source [id number] 10/25/2019 01:31:35 PM EDT [facility] Progress NotePatient: Evelio Carlin Sex: male DOA: 11/07/2018Date of : 1950 Age: 68 y.o. :[id number]:Reyes Carlin is 68 y.o. male .who was [...] no.4 with vit K 10 mL, t cucczqx571 mg, folic acid 1 mg infusion IntraVENous [...] Supporting Document(s ) ID Date Data Source [id number] 10/25/2019 12:48:21 PM EDT [facility] Progress NotePatient: Evelio Carlin Sex: male DOA: 11/07/2018Date of : 1950 Age: 68 y.o. :[id number]:Reyes Carlin is 68 y.o. male .who was [...] ,PPI, TWE and cont g tube to [facility] Medical Hist ory:Diagnosis Date Chronic obstructive [...] (HCC) ICD-10-CM: J44.9ICD-9-CM: 496 11/08/2018 Unknown [place] respiratory distress ICD-10-CM: R06.03ICD-9-CM: 518.82 11/08/2018 Unknow [...] Supporting Document(s ) ID Date Data Source [id number] 10/25/2019 12:23:00 PM EDT [facility] Name Value Range Interpretation Code Description Data Harriett rce(s) Supporting Document(s ) SARS-CoV-2 [facility] Ql DAVID+probe This lab was ordered by [facility] a nd reported by [facility]. ID Date Data Source [id number] 10/23/2019 01:08:00 PM EDT [facility] Name Value Range Interpretation Code Description Data Harriett rce(s) Supporting Document(s ) SARS-CoV-2 [facility] Ql DAVID+probe This lab was ordered by [facility] a nd reported by [facility]. ID Date Data Source [id number] 10/19/2019 10:41:00 AM EDT [facility] Name Value Range Interpretation Code Description Data Harriett rce(s) Supporting Document(s ) SARS-CoV-2 [facility] RNA [facility] Ql DAVID+probe This lab was ordered by [facility] a nd reported by [facility]. ID Date Data Source [id number] 10/10/2019 11:34:00 PM EDT [facility] Name Value Range Interpretation Description Data Sup porting Code Source(s) Document(s ) SARS [facility] CORONAVIRUS 2 RNA This lab was ordered by [facility] and reported by [facility]. ID Date Data Source [id number] 10/08/2019 06:40:00 PM EDT [facility] Name Value Range Interpretation Description Data Sup porting Code Source(s) Document(s ) SARS [facility] CORONAVIRUS 2 RNA This lab was ordered by [facility] and reported by [facility]. ID Date Data Source [id number] 09/28/2019 11:50:00 AM EDT [facility] Name Value Range Interpretation Description Data Sup porting Code Source(s) Document(s ) SARS [facility] CORONAVIRUS 2 RNA This lab was ordered by [facility] and reported by [facility]. ID Date Data Source [id number] 09/13/2019 02:05:00 PM EDT [facility] Name Value Range Interpretation Description Data Sup porting Code Source(s) Document(s ) SARS [facility] CORONAVIRUS 2 RNA This lab was ordered by [facility] and reported by [facility]. ID Date Data Source [id number] 08/24/2019 08:25:07 PM EDT [facility] Progress NotePatient: Evelio Carlin Sex: male DOA: 11/07/2018Date of : 1950 Age: 68 y.o. :[id number]:Reyes Carlin is 68 y.o. male .who was [...] MG-0.5 MG/3 ML 3 mL Nebulization Q4H PA N cinacalcet (SENSIPAR) tablet 60 mg 60 mg Oral DAILY budesonide (PULMICORT) 500 m cg/2 ml nebulizer suspension 500 mcg NebulizationBID RT Assessment/Plan:Hospi krystian Problems Date Reviewed: 11/27/2018 Codes Class Noted POA COPD (chronic obst ructive pulmonary disease) (HCC) ICD-10-CM: J44.9ICD-9-CM: 496 11/08/2018 Unknown [place] respiratory distress ICD-10-CM: R06.03ICD-9-CM: 518.82 11/08/2018 Unknow [...] Supporting Document(s ) ID Date Data Source [id number] 08/24/2019 04:13:18 PM EDT [facility] Progress NotePatient: Evelio Carlin Sex: male DOA: 11/07/2018Date of : 1950 Age: 68 y.o. :[id number]:Reyes Carlin is 68 y.o. male .who was [...] adult no.4 with vit K 10 mL, veezwjiq767 mg, folic acid 1 mg infusion IntraVENous [...] (HCC) ICD-10-CM: J44.9ICD-9-CM: 496 11/08/2018 Unknown [place] respiratory distress ICD-10-CM: R06.03ICD-9-CM: 518.82 11/08/2018 Unknow [...] Supporting Document(s ) ID Date Data Source [id number] 08/24/2019 03:37:05 PM EDT [facility] Progress NotePatient: Evelio Carlin Sex: male DOA: 11/07/2018Date of : 1950 Age: 68 y.o. :[id number]:Reyes Carlin is 68 y.o. male who was [...] no pneumothorax.IMPRESSION:. Bilateral lower lung atelectasis. No dnona dence of consolidation oreffusion.Medications reviewed acetaminophen (OFIRMEV) [...] adult no.4 with vit K 10 mL, zfniscde411 mg, folic acid 1 mg infusion IntraVENous Q 24H albuterol-ipratropium (DUO-NEB) 2.5 MG-0.5 MG/3 ML 3 mL Nebulization Q4H PA N cinacalcet (SENSIPAR) tablet 60 mg 60 mg Oral DAILY budesonide (PULMICORT) 500 m cg/2 ml nebulizer suspension 500 mcg NebulizationBID RT Assessment/Plan:Hosp ital Problems Date Reviewed: 11/27/2018 Codes Class Noted POA COPD (chronic obst ructive pulmonary disease) (HCC) ICD-10-CM: J44.9ICD-9-CM: 496 11/08/2018 Unknown [place] respiratory distress ICD-10-CM: R06.03ICD-9-CM: 518.82 11/08/2018 Unknow n Pneumonia ICD-10-CM: J18.9ICD-9-CM: 486 11/08/2018 Unknown COPD exacerbation ([facility] ) ICD-10-CM: J44.1ICD-9-CM: 491.21 11/08/2018 UnknownAssessment:POD [...] Supporting Document(s ) ID Date Data Source [id number] 08/24/2019 03:00:09 PM EDT [facility] Progress NotePatient: Evelio Carlin Sex: male DOA: 11/07/2018Date of : 1950 Age: 68 y.o. :[id number]:Reyes Carlin is 68 y.o. male Who is [...] past 24 hrs: BP Temp Pulse Resp OcW22211/17/18 1133 150/70 96.6 F (35.9 C) (!) [...] no.4 with vit K 10 mL, t qiuuabb216 mg, folic acid 1 mg infusion IntraVENous [...] Supporting Document(s ) ID Date Data Source [id number] 08/24/2019 02:24:50 PM EDT [facility] Progress NotePatient: Evelio Carlin Sex: male DOA: 11/07/2018Date of : 1950 Age: 68 y.o. :[id number]:Reyes Carlin is 68 y.o. male who was [...] adult no.4 with vit K 10 mL, yafffwgk175 mg, folic acid 1 mg infusion IntraVENous [...] Supporting Document(s ) ID Date Data Source [id number] 08/24/2019 01:57:26 PM EDT [facility] Progress NotePatient: Evelio Carlin Sex: male DOA: 11/07/2018Date of : 1950 Age: 68 y.o. :[id number]:Reyes Carlin is 68 y.o. male who was [...] (HCC) ICD-10-CM: J44.9ICD-9-CM: 496 11/08/2018 Unknown [place] respiratory distress ICD-10-CM: R06.03ICD-9-CM: 518.82 11/08/2018 Unknow [...] Supporting Document(s ) ID Date Data Source [id number] 08/24/2019 01:28:23 PM EDT [facility] Progress NotePatient: Evelio Carlin Sex: male DOA: 11/07/2018Date of : 1950 Age: 68 y.o. :[id number]:Reyes Carlin is 68 y.o. male who was [...] high as 4.1.[facility] Acute hypercapnia, hypoxicrespiratory failure, [...] adult no.4 with vit K 10 mL, kkwsdxha650 mg, folic acid 1 mg infusion IntraVENous [...] Supporting Document(s ) ID Date Data Source [id number] 08/24/2019 01:02:08 PM EDT [facility] Progress NotePatient: Evelio Carlin Sex: male DOA: 11/07/2018Date of : 1950 Age: 68 y.o. :[id number]:Reyes Carlin is 68 y.o. male who was [...] adult no.4 with vit K 10 mL, uyvdbgjw318 mg, f olic acid 1 mg infusion [...] Supporting Document(s ) ID Date Data Source [id number] 07/23/2019 08:30:00 AM EDT [facility] Name Value Range Interpretation Description Data Sup porting Code Source(s) Document(s ) SARS [facility] CORONAVIRUS 2 RNA This lab was ordered by [facility] and reported by [facility]. ID Date Data Source [id number] 07/06/2019 02:37:00 PM EDT [facility] Name Value Range Interpretation Description Data Sup porting Code Source(s) Document(s ) SARS [facility] CORONAVIRUS 2 RNA This lab was ordered by [facility] and reported by [facility]. ID Date Data Source [id number] 05/21/2019 03:45:05 PM EST [facility] Patient evaluated with NANCY Oglesby Name Value Range Interpretation Code Description Data Harriett rce(s) Supporting Document(s ) ID Date Data Source [id number] 05/09/2019 03:00:53 PM EST [facility] NoteM[facility] ,[facility].Krystian Monae MD., F.C.C.P.Stella Hamilton MD., F.C.C.P. [address] [place] [id number] [place] [address] [id number] Patient: Telly grimm Sex: male DOA: 04/19/2019Date [...] 24 hrs: BP Temp Pulse Resp SpO2 Tmaizk94/23/20 1131 146/86 98.2 F (36.8 C) 70 [...] (cm H2O): 8PEEP/VENT (cm H2O): 5 cm I59Divo PEEP Observed (cm H2O): 2.3 cm B8MQrvx Rate Tidal Volume Pressure FiO2 PEEPPRVC 40 0 ml 10 cm H2O 40 % 5 cm Q98Etnx airway pressure: 20 cm B8PObklim ventilation: 5 .8 l/minARDS network Guidelines: Lung [...] Procedure Component Value Units Date/Time CULTURE, BLOOD [[id number]] Col lected: 04/25/19 1210 Order Status: Completed Specimen: Blood Updated: 1352 Special Requests: NO SPECIAL REQUESTS Culture result: NO GROWTH 5 DA YS CULTURE, BLOOD [[id number]] Collected: 04/25/19 1205 Order Status: Completed S pecimen: Blood Updated: 04/30/19 1352 Special Requests: NO SPECIAL REQUESTS C ulture result: NO GROWTH 5 DAYS CULTURE, RESPIRATORY/SPUTUM/BRONCH W GRAM STAIN [ [id number]] (Abnormal)(Susceptibility) Collected: 04/26/19 1700 Order Status: Completed Specimen: Sputum from Tracheal Aspirate Updated:04/29/19 1051 Special Requests: NO SPECIAL REQUESTS GRAM STAIN 10-25 WBC/lpf <10 EPI/lpf FEW GRAM P OSITIVE RODS Culture result: MODERATE PSEUDOMONAS AERUGINOSA C. DIFFICILE (DNA ) [[id number]] Collected: 04/27/19 0915 Order Status: Completed Specimen: Stool Upda mikel: 04/27/19 1246 C. difficile (DNA) NEGATIVE Comment: This specimen is nega tive for toxigenic C difficile by DNAamplification. Repeat testing is not recommended for confirmation, samplesreceived within 7 days of this ne gative result will be rejected. C. DIFFICILE (DNA) [[id number]] (Abnormal) Collected: 04/25/19 1715 Order Status: Completed Specimen: Stool Updated: 04/26/19 1551 C. difficile (DNA) TEST RESULT IS INCONCLUSIVE. PLEASE SUBMIT A NEW SPECIM EN FOR ANALYSIS. CULTURE, URINE [[id number]] Collected: 04/25/19 1147 Order Status: Completed Specimen: Urine from Clean catch Updated: Special Requests : NO SPECIAL REQUESTS Culture result: NO GROWTH 1 DAY C. DIFFICILE (DNA) [[id number]] Collected: 04/26/19 0930 Order Status: Canceled Specimen: Stool CULTURE, BLOOD [[id number]] Collected: 04/20/19 1440 Order Status: Completed Specimen: Blood Upda mikel: 04/26/19 0818 Special Requests: NO SPECIAL REQUESTS Culture result: NO HAIDER WTH 6 DAYS CULTURE, BLOOD [[id number]] Collected: 04/20/19 1447 Order Status: Completed Specimen: Blood Updated: 04/26/19 08 Special Requests: NO SPEC IAL REQUESTS Culture result: NO GROWTH 6 DAYS CULTURE, BLOOD [[id number]] (Abnorm al) Collected: 04/19/19 1005 Order Status: Completed Specimen: Blood Updated: 12/02 0731 Special Requests: NO SPECIAL REQUESTS GRAM STAIN GRAM POSITIVE COCC I IN CLUSTERS ANAEROBIC BOTTLE CALLED TO AND READ BACK BY ROB LEDEZMA,RN, ED, 0935 ON 04/20/19 SCOTT Culture result: STAPHYLOCOCCUS EPIDERMIDIS : Refer to p revious culture(s) for susceptibilityresults CULTURE, BLOOD [[id number]] (Abnormal) (Susceptibility) Collected: Order Status: Completed Specimen: [...] GiResult Date: 04/29/2019History: J-tube placement. FINDINGS: A translator and interpreter film of the abdomen reveals a tubeoverlying [...] Patient Name: EVELIO CARLIN FINAL REPORTFROM IMAGING RESIDENTIAL SALES REPRESENTATIVE EXAM: C T chest without contrast and [...] 04/20/2019 22:43 GINA Jenkins.Please call Katja berger Canal Structure Operator [phone] ([phone]) with questions. This reportwas electronically signed by: [...] (porcine) injection 5,000 Units 5,000 Units SubCUTAneous [id number] Problems: Pneum onia (11/08/2018) Acute hypoxemic respiratory failure (HCC) (03/25/2019) COPD with ac [place] exacerbation (HCC) (04/19/2019) Acute on chronic respiratory [...] - G N R , PSEUDOMONAS AERU [id number]. SEPSIS L A = 2.5 RESOLVING 11. [...] 30 %, PATIENT IS BEING DISCHARGED TO [facility] -WEANING SHOULD BE ATTEMPTED TH ERE . [...] Supporting Document(s ) ID Date Data Source [id number] 05/07/2019 02:26:21 PM EST [facility] Pt left facility via EMS to [facility] for rehabilitation. Name Value Range Interpretation Code Description Data Harriett rce(s) Supporting Document(s ) ID Date Data Source [id number] 05/07/2019 01:55:49 PM [facility] Received call from Syeda Medina stating that [...] Supporting Document(s ) ID Date Data Source [id number] 05/07/2019 12:46:15 PM [facility] TRANSFER - OUT REPORT:Verbal report give n to Geovanna RN(name) on Evelio Carlin being transferred [facility] nursing [facility](unit) for routine progression of careReport consisted [...] Supporting Document(s ) ID Date Data Source [id number] 05/07/2019 12:02:16 PM EST [facility] Care Management InterventionsPCP Verifie d by CM: YesMode of Transport at Discharge: ALSTransition of Care Consult (CM Consul t): Discharge PlanningMyChart Signup: NoDischarge Durable Medical Equipment: N oPhysical Therapy Consult: NoOccupational Therapy Consult: NoSpeech Therapy Consul t: NoCurrent Support Network: Nursing Facility([facility])The Patient and/ or Patient Software Applications Engineer was Provided with a Choice of Providerand Agrees with the Di scharge Plan?: YesFreedom of Choice List was Provided with Basic Dialogue that Suppor ts thePatient's Individualized Plan of Care/Goals, Treatment Preferences and Sh aresthe Quality Data Associated with the Providers?: YesVeteran Resource Informat ion Provided?: RefusedDischarge LocationDischarge Placement: Rehab Unit Subacute([facility])Pt discharging to [facility] today via [employer] d mobile at 2 pm. RNis aware and was provided with Nursing office number [phone] for RN to RNreport. SW Ski Molder spoke with pt's sister/guardian Yuliet who is aware a ndagreeable. Spoke with Chica director multimedia at [facility], jeff head as requested and facility is ready to accept the pt at 2 pm. Chica marsh is aware and agreeable to transport time. Name Value Range Interpretation Code Description Data Harriett rce(s) Supporting Document(s ) ID Date Data Source [id number] 05/07/2019 11:58:43 AM EST [facility] ID Progress Note05/07/2019Subjective:S/p tracheostomy and jejunostomy tube placement.Blood cx remain negativeResp c x with pseudomonasOn vent support.Wbc wnlAfebrileNo new events.Objective:Revie w of SystemsPatient is unable to provideVitals:Patient [facility] t [facility]: BP Temp Pulse Resp SpO2 Yvdslu65/23/20 1131 146/86 98.2 F (36.8 C) 70 [...] Supporting Document(s ) ID Date Data Source [id number] 05/07/2019 11:09:35 AM EST [facility] Pt T/C SANDHYA DAVIS .Nancy aware. Name Value Range Interpretation Code Description Data Harriett rce(s) Supporting Document(s ) ID Date Data Source [id number] 05/07/2019 10:33:51 AM EST [facility] Discharge SummaryPatient: Evelio Parks einicole Sex: male DOA: 04/19/2019Date of : 1950 A ge: 68 y.o. LOS: 18 daysAdmit Date: 04/19/2019Discharge Date: 05/07/2019Dischar ge Diagnoses:Problem List as of 05/07/2019 Date Reviewed: 05/01/2019 Codes Cla ss Noted - Resolved Scrotal rash ICD-10-CM: M48SIR-3-FP: 782.1 04/21/2019 - Present C OPD with [...] Leg wound, right, initial encounter ICD-10-CM: S81. 141XZJZ-5-OC: 894.0 02/09/2019 - Present SOB (shortness of [...] past 24 hrs: Temp Pulse Resp BP IeU69905/07/19 0729 98.2 F (36.8 C) 75 15 [...] Supporting Document(s ) ID Date Data Source [id number] 05/07/2019 10:05:32 AM EST [facility] Discharge SummaryPatient: Evelio Parks cain Sex: male DOA: 04/19/2019Date of : 1950 A ge: 68 y.o. LOS: 17 daysAdmit Date: 04/19/2019Discharge Date: 05/06/2019Dischar ge Diagnoses:Problem List as of 05/06/2019 Date Reviewed: 05/01/2019 Codes Cla ss Noted - Resolved Scrotal rash ICD-10-CM: B98EAT-8-RK: 782.1 04/21/2019 - Present C OPD with [...] Leg wound, right, initial encounter ICD-10-CM: S81. 715EAXE-3-DV: 894.0 02/09/2019 - Present SOB (shortness of [...] past 24 hrs: Temp Pulse Resp BP VnT51905/06/19 0952 - 88 22 - 99 % [...] the last 72 hours.Liver Enzymes Recent Labs 97098DM 6.6ALB 2.3*AP 82SGOT 15Thyroid Studies Lab ResultsComponent [...] Supporting Document(s ) ID Date Data Source [id number] 05/07/2019 09:50:46 AM EST [facility] RENAL Progress TylerEvelio Abrahambein68 y .o.Admit Date: [...] 065 9 05/07/19 0700 - 05/08/19 0659Shift 1686-7674 0099-0386 24 Hour Total 0700-1 859 6346-0213 24 Hour TotalINTAKENG/GT 199 956 4383 Water Flush Volume (mL) (G/J T ube) [...] 125 mg 125 mg Per G Tube K7QNnprrtoJuan alejandro MD 125 mg at 05/07/19 0546 [...] (porcine) injection 5,000 Units 5,000 Units SubCUTAneous C39TPepvkgokjKareen gonzales MD 5,000 Uni ts at 05/07/19 [...] hyp ercapnia (HCC)04/19/2019 Acute hypoxemic respiratory failure ([facility]) 03/25/2019 Pn eumonia 11/08/2018 NOAH.improving slowly S/p trach Hypernatremia 149Plan:o ff LasixReplace Po4 free water 200ml every 4 hoursFollow up labsD/c planningHanna [facility] eim, MDJanuary 2019 Name Value Range Interpretation Code Description Data [facility] rce(s) Supporting Document(s ) ID Date Data Source [id number] 05/07/2019 07:37:35 AM [facility] Bedside and Verbal shift change report carol Conner RN (oncoming nurse) Vivienne Campbell RN (offgoing nurse). Report includ ed the following informationSBAR, Kardex, Intake/Output, MAR, Recent Results and C ardiac Rhythm NSR. Name Value Range Interpretation Code Description Data [facility] rce(s) Supporting Document(s ) ID Date Data Source [id number] 05/07/2019 07:04:05 AM [facility] Reviewed Ventilator Settings with onc oming RT Kraig Godwin, Settings, Weaning , Transports. Ventilator wiped d own with bleachwipes.Eliel Aggarwal, RT Name Value Range Interpretation Code Description Data [facility] rce(s) Supporting Document(s ) ID Date Data Source [id number] 05/07/2019 05:32:30 AM [facility] Name Value Range Interpretation Description Data Sup porting Code Source(s) Document(s ) Leukocytes 10.8 4.8-10.6 Above high normal [facility] - [#/volume] in K/uL Good Blood by [facility] Automated count [facility] Erythrocytes 3.19 4.70-6.0 Below low normal [facility] - [#/volume] in M/uL 0 Good Blood by [facility] Hemoglobin 9.7 g/dL 14.0-18. Below low normal [facility] - [Mass/volume] in 0 Good Blood [facility] Hematocrit 32.1 % 42.0-52. Below low normal [facility] - [Volume 0 Good Fraction] of [facility] Blood by Hospital Automated count Erythrocyte mean 100.6 FL 81.0-94. Above high normal [facility] - corpuscular 0 Good volume [Entitic [facility]astrianism volume] by Hospital Automated count Erythrocyte mean 30.4 PG 27.0-35. [facility] - corpuscular 0 Good hemoglobin [facility] [Entitic mass] Hospital by Automated count Erythrocyte mean 30.2 30.7-37. Below low normal [facility] - corpuscular g/dL 3 Good hemoglobin [facility]rianism concentration [facility] [Mass/volume] by Automated count Erythrocyte 17.9 % 11.5-14. Above high normal [facility] - distribution 0 Good width [Ratio] by [facility] Automated count Hospital Platelets 297 K/uL 130-400 [facility] - [#/volume] in [facility] Blood by [facility] Automated count Hospital Platelet mean 10.0 FL 9.2-11.8 [facility] - volume [Entitic Good volume] in Blood [facility] Automated Hospital count Nucleated 0.0 PER 0 [facility] - erythrocytes/100 100 WBC Good leukocytes [facility] [Ratio] in Blood [facility] Nucleated 0.00 0.0-0.01 [facility] - erythrocytes K/uL Good [#/volume] in [facility] Segmented 74 % 48.0-72. Above high normal [facility] - neutrophils/100 [address] [facility] Lymphocytes/100 17 % 18.0-40. Below low normal [facility] - leukocytes in 0 [facility] Blood [facility] Monocytes/100 7 % 2.0-12.0 [facility] - leukocytes in [facility] Blood [facility] Eosinophils/100 1 % 0.0-7.0 [facility] - leukocytes in [facility] Blood [facility] Basophils/100 0 % 0.0-3.0 [facility] - leukocytes in [facility] Blood [facility] Immature 1 % 0-0.5 Above high normal [facility] - granulocytes/100 Good leukocytes in [facility] Blood by Hospital Automated count Segmented 8.0 K/UL 2.3-7.6 Above high normal [facility] - neutrophils Good [#/volume] in [facility] Lymphocytes 1.8 K/UL 0.9-4.2 [facility] - [#/volume] in Good Blood [facility] Monocytes 0.8 K/UL 0.1-1.7 [facility] - [#/volume] in [facility] Eosinophils 0.1 K/UL 0.0-1.0 [facility] - [#/volume] in [facility] Basophils 0.0 K/UL 0.0-0.4 [facility] - [#/volume] in [facility] Immature 0.1 K/UL 0.0-0.17 [facility] - granulocytes Good [#/volume] in [facility] Blood by Hospital Automated count Differential [facility] - cell count Good method [facility] ID Date Data Source [id number] 05/07/2019 05:28:19 AM EST [facility] Name Value Range Interpretation Description Data Sup porting Code Source(s) Document(s ) Sodium 150 136-145 Above high [facility] - [Moles/volume] in mmol/L normal [facility] Serum or [facility] Potassium 3.9 3.5-5.1 [facility] - [Moles/volume] in mmol/L [facility] Serum or [facility] Chloride 117 98-107 Above high [facility] - [Moles/volume] in mmol/L normal [facility] or [facility] Carbon dioxide, 32 21-32 [facility] - total mmol/L [facility] [Moles/volume] in [facility] Serum or [facility] Anion gap in Serum 6 10-20 Below low normal [facility] - or Plasma mmol/L [facility] Glucose 121 74-106 Above high [facility] - [Mass/volume] in mg/dL normal [facility] Serum or Plasma [facility] Urea nitrogen 45 7-18 Above high [facility] - [Mass/volume] in mg/dL normal [facility] Serum or [facility] Creatinine 2.13 0.70-1. Above high [facility] - [Mass/volume] in mg/dL 30 normal [facility] Serum or [facility] Glomerular 40 >60 Below low normal [facility] - filtration ml/min/ Good rate/1.73 sq M 1.73m2 [facility]rianism predicted among Hospital blacks [Volume Rate/Area] in Serum or Plasma by Creatinine-based formula (MDRD) Glomerular 33 >60 Below low normal [facility] - filtration ml/min/ Good rate/1.73 sq M 1.73m2 Zoroastrianism predicted among Hospital non-blacks [Volume Rate/Area] in Serum or Plasma by Creatinine-based formula (MDRD) Calcium 9.7 8.5-10. [facility] - [Mass/volume] in mg/dL 1 Good Serum or Plasma [facility] Bilirubin.total 0.3 0.2-1.0 [facility] - [Mass/volume] in mg/dL Good Serum or Plasma [facility] Alanine 14 U/L 13-61 [facility] - aminotransferase Good [Enzymatic Zoroastrianism activity/volume] in Hospital Serum or Plasma Aspartate 11 U/L 15-37 Below low normal [facility] - aminotransferase Good [Enzymatic Zoroastrianism activity/volume] in Hospital Serum or Plasma by With P-5'-P Alkaline 86 U/L 45-117 [facility] - phosphatase Good [Enzymatic Zoroastrianism activity/volume] in Hospital Serum or Plasma Protein 6.5 6.4-8.2 [facility] - [Mass/volume] in g/dL Good Serum or Plasma [facility] Albumin 2.2 3.5-4.7 Below low normal [facility] - [Mass/volume] in g/dL Good Serum or Plasma by [facility] Bromocresol [facility] (BCP) dye binding method Globulin 4.3 1.7-4.7 [facility] - [Mass/volume] in g/dL Good Serum by [facility] Albumin/Globulin 0.5 0.7-2.8 Below low normal [facility] - [Mass Ratio] in Good Serum or Plasma [facility] ID Date Data Source [id number] 05/07/2019 05:28:19 AM EST [facility] Name Value Range Interpretation Description Data Sup porting Code Source(s) Document(s ) Phosphate 2.0 mg/dL 2.5-4.9 Below low normal [facility] - Good [Mass/volume] Zoroastrianism in Serum or Hospital Plasma ID Date Data Source [id number] 05/07/2019 05:28:19 AM EST [facility] Name Value Range Interpretation Description Data Sup porting Code Source(s) Document(s ) Magnesium 2.9 mg/dL 1.6-2.6 Above high normal [facility] - Good [Mass/volume] Zoroastrianism in Serum or Hospital Plasma ID Date Data Source [id number] 05/06/2019 07:24:30 PM EST [facility] RENAL Progress Bella Carlin68 y .o.Admit [...] 0659 05/06/19 0700 - 05/07/19 0 659Shift 7785-0077 24 Hour Total 0655-3669 2511-0912 24 Hour TotalINTAKEI.V.(mL/kg/ hr) 50 50 Volume [...] mg 10 mg Oral DAILYWITH BREAKFAST Krystian Monea MD meropenem (MERREM) 50 0 mg in [...] 125 mg 125 mg Per G Tube G7ELhpamohJuan alejandro MD 125 mg at 05/06/19 1721 [...] MG/3 ML 3 mL Nebulization Q6HWA RTLaKareen rodriugez MD 3 mL at 1413 acetylcysteine (MUCOMYST) [...] (porcine) injection 5,000 Units 5,000 Units SubCUTAneous K45UQmqronbraKareen gonzales MD 5,000 Uni ts at 05/06/19 [...] Name Value Range Interpretation Code Description Data [facility] rce(s) Supporting Document(s ) ID Date Data Source [id number] 05/06/2019 07:19:13 PM [facility] Bedside and Verbal shift change report g ellynen to Elizabeth Campbell RN (oncoming nurse)by Reny Galeas RN(offgoing nurse). Repor t given with SBAR, Kardex, Intake/Output, MAR and RecentResults. Name Value Range Interpretation Code Description Data [facility] Supporting Document(s ) ID Date Data Source [id number] 05/06/2019 04:40:07 PM [facility] Multiple phone calls made to [employer] who f inally called back however now statingthat we need to discuss discharge with Yuliet who is the Guardian. She providedthe last 4 digits of the number and said to call Ru th. Called #[phone] andVM is full,unable to leave message. Several more attempts made and VM stillfull. Name Value Range Interpretation Code Description Data [facility] Supporting Document(s ) ID Date Data Source [id number] 05/06/2019 02:41:43 PM [facility] ID Progress Note05/06/2019Subjective:S/p tracheostomy and jejunostomy tube placement.No event overnightBlood cx rem ain negativeResp cx with pseudomonasOn vent support.Wbc wnlAfebrileObjective:Review of SystemsPatient is unable to provideVitals:Patient Vitals for the pas t 24 hrs: BP Temp Pulse Resp SpO2 Xagqmk86/22/20 0952 - - 88 22 99 % [...] (porcine) injection 5,000 Units 5,000 Units SubCUTAneous G14PLcyt:Recent Labs 05/0605/04/200312WBC 9.3 8.8HGB 9.3* 8.7*PLT 356 [...] Name Value Range Interpretation Code Description Data [facility] rce(s) Supporting Document(s ) ID Date Data Source [id number] 05/06/2019 01:19:40 PM [facility] Care Management InterventionsPCP Verifie d by CM: YesMode of Transport at Discharge: ALSTransition of Care Consult (CM Consul t): Discharge PlanningMyChart Signup: NoDischarge Durable Medical Equipment: N oPhysical Therapy Consult: NoOccupational Therapy Consult: NoSpeech Therapy Consul t: NoCurrent Support Network: Nursing Facility([facility])The Patient and/ or Patient Software Applications Engineer was Provided with a Choice of Providerand Agrees with the Di scharbrian Plan?: YesFreedom of Choice List was Provided with Basic Dialogue that Suppor ts thePatient's Individualized Plan of Care/Goals, Treatment Preferences and Sh aresthe Quality Data Associated with the Providers?: YesVeteran Resource Informat ion Provided?: RefusedDischarge LocationDischarge Placement: Rehab Unit Subacute([facility] [employer] [facility] at 3:30 pm.RN is aware. Spoke with Chica in admissions at [facility] who is awareand agreeable. Facility is aware of transport time and is prepared for e pt. Ski Molder speaking with pt's family to make aware of discharge. Name Value Range Interpretation Code Description Data [facility] rce(s) Supporting Document(s ) ID Date Data Source [id number] 05/06/2019 01:11:45 PM [facility] Spoke with Chica in admissions at [facility], bed is available for pt todischarge to today. Facility is prepar ed to accept the pt. MAR faxed to Chica inadlalo as requested.[facility]30 pm.Spoke with MD Bustos who left message for Joyce and spoke wi th pt's sisterMichell in the presence of [facility]. Pt's sister Michell reports that sister Stefan dee ispt's guardian and HCP. Call placed to Yuliet at [phone] and message left.Wi ll request documentation of POA and guardianship. reports he will also be calling Yuliet and follow-up with Joyce and then call SCOTT back. Contactinformation for SCOTT provided to . Will follow. Addendum: Spoke with Chica at [facility] who is aware of transportarranged for 3:30 pm. RN to RN reports can be called into nursing office [phone]. Name Value Range Interpretation Code Description Data Harriett rce(s) Supporting Document(s ) ID Date Data Source [id number] 05/06/2019 12:47:30 PM [facility] Patient evaluated with NANCY Oglesby. A small 1 x 1 cm circular erythematous areaidentified on the left hip, non blan audi.Allevyn applied. Monitor for resolution. Please re consult if not res olving.Continue preventive and supportive care. Name Value Range Interpretation Code Description Data [facility](s) Supporting Document(s ) ID Date Data Source [id number] 05/06/2019 12:12:10 PM [facility] Progress NoteMID-SC[facility] ,P.[facility] Children'S Psychiatric Centerjose Monae MD., F.C.C.P.Stella Hamilton MD., F.C.C.P. [address] [facility] [address] [place] [id number] [place] [phone]: Evelio Carlin Sex: male DOA: 04/19/2019Dat e of : 1950 Age: 68 y.o. LOS: LOS: 17 daysSubjective:Mr. Gayla beltran is a 68 y.o. year old male who is being seen for VENTILATORSUPPORT , SEVERE COPD , PNEUMONIA . HE IS COMFORTABLE ON VENTILATOR.Objective:Vital Signs:Patient Vitals for the past 24 hrs: BP Temp Pulse Resp SpO2 Sklmad29/22/20 0952 - - 88 22 99 % [...] ResultsComponent Value Date/Time GLU 94 05/06/2019 04:00 [email or web address]@[facility] Results Procedure Component Value Units Date/Time CULTURE, BLOOD [[id number]] Col lected: 04/25/19 1210 Order Status: Completed Specimen: Blood Updated: 1352 Special Requests: NO SPECIAL REQUESTS Culture result: NO GROWTH 5 DA YS CULTURE, BLOOD [[id number]] Collected: 04/25/19 1205 Order Status: Completed S pecimen: Blood Updated: 04/30/19 1352 Special Requests: NO SPECIAL REQUESTS C ulture result: NO GROWTH 5 DAYS CULTURE, RESPIRATORY/SPUTUM/BRONCH W GRAM STAIN [ [id number]] (Abnormal)(Susceptibility) Collected: 04/26/19 1700 Order Status: Completed Specimen: Sputum from Tracheal Aspirate Updated:04/29/19 1051 Special Requests: NO SPECIAL REQUESTS GRAM STAIN 10-25 WBC/lpf <10 EPI/lpf FEW GRAM P OSITIVE RODS Culture result: MODERATE PSEUDOMONAS AERUGINOSA C. DIFFICILE (DNA ) [[id number]] Collected: 04/27/19 0915 Order Status: Completed Specimen: Stool Upda mikel: 04/27/19 1246 C. difficile (DNA) NEGATIVE Comment: This specimen is nega tive for toxigenic C difficile by DNAamplification. Repeat testing is not recommended for confirmation, samplesreceived within 7 days of this ne gative result will be rejected. C. DIFFICILE (DNA) [[id number]] (Abnormal) Collected: 04/25/19 1715 Order Status: Completed Specimen: Stool Updated: 04/26/19 1551 C. difficile (DNA) TEST RESULT IS INCONCLUSIVE. PLEASE SUBMIT A NEW SPECIM EN FOR ANALYSIS. CULTURE, URINE [[id number]] Collected: 04/25/19 1147 Order Status: Completed Specimen: Urine from Clean catch Updated: Special Requests : NO SPECIAL REQUESTS Culture result: NO GROWTH 1 DAY C. DIFFICILE (DNA) [[id number]] Collected: 04/26/19 0930 Order Status: Canceled Specimen: Stool CULTURE, BLOOD [[id number]] Collected: 04/20/19 1440 Order Status: Completed Specimen: Blood Upda mikel: 04/26/19 0818 Special Requests: NO SPECIAL REQUESTS Culture result: NO HAIDER WTH 6 DAYS CULTURE, BLOOD [[id number]] Collected: 04/20/19 1447 Order Status: Completed Specimen: Blood Updated: 04/26/19 0818 Special Requests: NO SPEC IAL REQUESTS Culture result: NO GROWTH 6 DAYS CULTURE, BLOOD [[id number]] (Abnorm al) Collected: 04/19/19 1005 Order Status: Completed Specimen: Blood Updated: 12/02 0731 Special Requests: NO SPECIAL REQUESTS GRAM STAIN GRAM POSITIVE COCC I IN CLUSTERS ANAEROBIC BOTTLE CALLED TO AND READ BACK BY ROB LEDEZMA,RN, ED, 0929 ON 04/20/19 TORISMIRAGLIA Culture result: STAPHYLOCOCCUS EPIDERMIDIS : Refer to p revious culture(s) for susceptibilityresults CULTURE, BLOOD [[id number]] (Abnormal) (Susceptibility) Collected: Order Status: Completed Specimen: [...] GiResult Date: 04/29/2019History: J-tube placement. FINDINGS: A translator and interpreter film of the abdomen reveals a tubeoverlying [...] Patient Name: EVELIO CARLIN FINAL REPORTFROM IMAGING RESIDENTIAL SALES REPRESENTATIVE EXAM: C T chest without contrast and [...] Edge MD 04/20/2019 22:43 GINA Jenkins.Please call [facility] Canal Structure Operator [phone] with questions. This reportwas electronically signed by: [...] (porcine) injection 5,000 Units 5,000 Units SubCUTAneous [id number] Problems: Pneum onia (11/08/2018) Acute hypoxemic respiratory failure (HCC) (03/25/2019) COPD with ac [place] exacerbation (HCC) (04/19/2019) Acute on chronic respiratory [...] PNEUMONIA - G N R , PSEUDOMONAS [id number]. SEPSIS L A = 2.5 RESOL VING [...] Name Value Range Interpretation Code Description Data [facility](s) Supporting Document(s ) ID Date Data Source [id number] 05/06/2019 07:18:37 AM EST [facility] Bedside and Verbal shift change report g iven to Reny Galeas RN (oncoming nurse)by Elizabeth Campbell RN (offgoing nurse). Report included the following informationSBAR, Kardex, Intake/Output, MAR, Recent Resul ts and Cardiac Rhythm NSR. Name Value Range Interpretation Code Description Data [facility](s) Supporting Document(s ) ID Date Data Source [id number] 05/06/2019 07:08:30 AM EST [facility] Reviewed Ventilator Settings with onc oming RT Kraig Carson.Alarms, Settings, Weaning , Transports. Ventilator wiped d own with bleachwipes.Eliel Aggarwal, RT Name Value Range Interpretation Code Description Data Harriett rce(s) Supporting Document(s ) ID Date Data Source [id number] 05/06/2019 05:45:24 AM EST [facility] Name Value Range Interpretation Description Data Sup porting Code Source(s) Document(s ) Leukocytes 9.3 K/uL 4.8-10.6 [facility] - [#/volume] in Good Blood by [facility] Automated count Hospital Erythrocytes 3.05 4.70-6.0 Below low normal [facility] - [#/volume] in M/uL 0 Good Blood by [facility] Automated count Hospital Hemoglobin 9.3 g/dL 14.0-18. Below low normal [facility] - [Mass/volume] in 0 Good Blood [facility] Hematocrit 30.6 % 42.0-52. Below low normal [facility] - [Volume 0 Good Fraction] of [facility] Blood by Hospital Automated count Erythrocyte mean 100.3 FL 81.0-94. Above high normal [facility] - corpuscular 0 Good volume [Entitic [facility]oroastrianism volume] by Hospital Automated count Erythrocyte mean 30.5 PG 27.0-35. [facility] - corpuscular 0 Good hemoglobin [facility]rianism [Entitic mass] [facility] by Automated count Erythrocyte mean 30.4 30.7-37. Below low normal [facility] - corpuscular g/dL 3 Good hemoglobin [facility]oroastrianism concentration [facility] [Mass/volume] by Automated count Erythrocyte 18.1 % 11.5-14. Above high normal [facility] - distribution 0 Good width [Ratio] by [facility] Automated count Hospital Platelets 356 K/uL 130-400 [facility] - [#/volume] in Good Blood by [facility]rian[facility] Automated count [facility] Platelet mean 10.0 FL 9.2-11.8 [facility] - volume [Entitic Good volume] in Blood [facility] by Automated Hospital count Nucleated 0.0 PER 0 [facility] - erythrocytes/100 100 WBC Good leukocytes [facility] [Ratio] in Blood Hospital Nucleated 0.00 0.0-0.01 [facility] - erythrocytes K/uL Good [#/volume] in [facility] Segmented 69 % 48.0-72. [facility] - neutrophils/100 [address] Good [address] [facility] Lymphocytes/100 22 % 18.0-40. [facility] - leukocytes in 0 [facility] Monocytes/100 8 % 2.0-12.0 [facility] - leukocytes in [facility] Eosinophils/100 1 % 0.0-7.0 [facility] - leukocytes in [facility] Basophils/100 0 % 0.0-3.0 [facility] - leukocytes in [facility] Immature 0 % 0-0.5 [facility] - granulocytes/100 Good leukocytes in [facility] by Hospital Automated count Segmented 6.4 K/UL 2.3-7.6 [facility] - neutrophils Good [#/volume] in [facility] Lymphocytes 2.1 K/UL 0.9-4.2 [facility] - [#/volume] in [facility] Monocytes 0.7 K/UL 0.1-1.7 [facility] - [#/volume] in [facility] Eosinophils 0.1 K/UL 0.0-1.0 [facility] - [#/volume] in [facility] Basophils 0.0 K/UL 0.0-0.4 [facility] - [#/volume] in [facility] Immature 0.0 K/UL 0.0-0.17 [facility] - granulocytes Good [#/volume] in [facility] by Hospital Automated count Differential [facility] - cell count Good method [facility] ID Date Data Source [id number] 05/06/2019 05:39:41 AM EST [facility] Name Value Range Interpretation Description Data Sup porting Code Source(s) Document(s ) Sodium 149 136-145 Above high normal [facility] - Good [Moles/volume] mmol/L [facility] in Serum or Hospital Plasma Potassium 3.8 3.5-5.1 [facility] - Good [Moles/volume] mmol/L [facility] in Serum or Hospital Plasma Chloride 114 98-107 Above high normal [facility] - Good [Moles/volume] mmol/L [facility] in Serum or Hospital Plasma Carbon 33 21-32 Above high normal [facility] - Good dioxide, total mmol/L [facility] [Moles/volume] Hospital in Serum or Plasma Anion gap in 6 mmol/L 10-20 Below low normal [facility] - Go od Serum or [facility] Plasma Hospital Glucose 94 mg/dL 74-106 [facility] - Good [Mass/volume] [facility] in Serum or Hospital Plasma Urea nitrogen 43 mg/dL 7-18 Above high normal [facility] - Good [Mass/volume] [facility] in Serum or Hospital Plasma Creatinine 1.93 0.70-1.3 Above high normal [facility] - Goo d [Mass/volume] mg/dL 0 [facility] in Serum or Hospital Plasma Glomerular 45 >60 Below low normal [facility] - Good filtration ml/min/1 [facility]rianism rate/1.73 sq M .73m2 Hospital predicted among blacks [Volume Rate/Area] in Serum or Plasma by Creatinine-bas ed formula (MDRD) Glomerular 37 >60 Below low normal [facility] - Good filtration ml/min/1 [facility]ism rate/1.73 sq M .73m2 Hospital predicted among non-blacks [Volume Rate/Area] in Serum or Plasma by Creatinine-bas ed formula (MDRD) (NOTE)Estimated GFR is calculated using the Modification of Diet in RenalDisease (MDRD) Study equation, reported for both Americans(GFRAA) and non- Americans (GFRNA), and normalized to 1.7 7g9kprk surface area. The physician must decide which [...] 8.5-10.1 [facility] - Good Serum or Plasma [facility] Hosp ital Bilirubin.total 0.4 mg/dL 0.2-1.0 [facility] - Good [Mass/volume] in Serum or [facility] Plasma Alanine aminotransferase 16 U/L 13-61 [facility] - Good [Enzymatic activity/volume] [facility] in Serum or Plasma Aspartate aminotransferase 15 U/L 15-37 [facility] HS - Good [Enzymatic activity/volume] [facility] in Serum or Plasma by With P-5'-P Alkaline phosphatase 82 U/L 45-117 [facility] - G ood [Enzymatic activity/volume] [facility] in Serum or Plasma Protein [Mass/volume] in 6.6 g/dL 6.4-8.2 [facility] Serum or Plasma [facility] ital Albumin [Mass/volume] in 2.3 g/dL 3.5-4.7 Below low normal [facility] - Good Serum or Plasma by [facility] ospital Bromocresol purple (BCP) dye binding method Globulin [Mass/volume] in 4.3 g/dL 1.7-4.7 [facility] S Good Serum by calculation [facility] Albumin/Globulin [Mass 0.5 0.7-2.8 Below low normal [facility] Good Ratio] in Serum or Plasma [facility] ID Date Data Source [id number] 05/06/2019 05:39:41 AM EST [facility] Name Value Range Interpretation Description Data Sup porting Code Source(s) Document(s ) Magnesium 2.8 mg/dL 1.6-2.6 Above high normal [facility] [Mass/volume] [facility]rianism in Serum or [facility] Plasma ID Date Data Source [id number] 05/05/2019 11:56:12 PM EST [facility] Problem: Falls - Risk ofGoal: *Absence [...] Supporting Document(s ) ID Date Data Source [id number] 05/05/2019 07:33:33 PM [facility] Pt is in bed calm not pulling any tubes restraints not initiated at this time Name Value Range Interpretation Code Description Data [facility] rce(s) Supporting Document(s ) ID Date Data Source [id number] 05/05/2019 07:13:10 PM [facility] Verbal shift change report given to jackie lopez (oncoming nurse) by shawna (offgoing nurse). Report included the fo llowing information SBAR andKardex. Name Value Range Interpretation Code Description [facility] ) ID Date Data Source [id number] 05/05/2019 03:05:09 PM [facility] NUTRITION FOLLOW UPRECOMMENDATI ON:Suggest Osmolite 1.5 at [...] kdownINTERVENTION:Recalculated Nutrition Rx (no longer critically ill): [id number] melisa al; 68-82gprotein (1.25-1.5g/kg); 4971-7832 ml fluid (1ml/kcal)[based on: 30-35 Kcal /kg]Suggest Osmolite 1.5 at goal rate of 55 mL/hr (1980 kcal, 83 gm pro, 269 gm CHO, 65 gm fat, 1006 mL water) and 100 mL free water flush q 3 hr if no IVFGOALS:Pt remberto ts 80% nutrient needs within 3-7 daysMONITOR/EVALUATE:Follow EN/PN RxSkin integrityDISCHARGE PLAN:EN as recommended at [facility] R Favorito, RD Name Value Range Interpretation Code Description Data Harriett rce(s) Supporting Document(s ) ID Date Data Source [id number] 05/05/2019 03:04:41 PM EST [facility] Problem: Nutrition DeficitGoal: *Optimiz e nutritional [...] Supporting Document(s ) ID Date Data Source [id number] 05/05/2019 02:21:49 PM [facility] Pt no longer being discharged today. Spo ke with Chica at [facility] andmade aware. Will follow. Name Value Range Interpretation Code Description Data [facility] rce(s) Supporting Document(s ) ID Date Data Source [id number] 05/05/2019 01:52:32 PM [facility] Pt discharged by primary to SNF, family refused discharge, administration atbedside with family, call out to md discharge on hold, pt clinical conditionunchanged Name Value Range Interpretation Code Description Data [facility] rce(s) Supporting Document(s ) ID Date Data Source [id number] 05/05/2019 01:45:33 PM [facility] Possible discharge today. Call placed to [facility] [phone] andannesabrian left for director of dietary requeste d admissions decision forpossible discharge today. Clinical update fax to [phone].Clinical update also faxed to admissions at [facility] [phone]. Call please to admissions at [phone] and spoke with Francine who reports no bed available for today but sammyll check on financial clearance and will call [facility] back. [facility] arranged for 6 pm transp ort pending acceptance.Addendum: transport changed to 1 pm to [facility].Ad dendum: Received call from Eve in admissions at [facility], Pt denied. Name Value Range Interpretation Code Description Data [facility](s ) ID Date Data Source [id number] 05/05/2019 01:44:48 PM [facility] Care Management InterventionsPCP Verifie d by CM: YesMode of Transport at Discharge: ALSTransition of Care Consult (CM Consul t): Discharge PlanningMyChart Signup: NoDischarge Durable Medical Equipment: N oPhysical Therapy Consult: NoOccupational Therapy Consult: NoSpeech Therapy Consul t: NoCurrent Support Network: Nursing Facility([facility])The Patient and/ or Patient Software Applications Engineer was Provided with a Choice of Providerand Agrees with the Candy mckeon Plan?: YesFreedom of Choice List was Provided with Basic Dialogue that Suppor ts thePatient's Individualized Plan of Care/Goals, Treatment Preferences and Sh aresthe Quality Data Associated with the Providers?: YesVeteran Resource Informat ion Provided?: RefusedDischarge LocationDischarge Placement: Rehab Unit Subacute([facility])CARIN Ski Molder spoke with Chica at [facility], p t is accepted. [facility] arranged for 1 pm transport. Call placed to pt's HCP Montana nolan who was madeaware of discharge, acceptance to [facility] and arr anged ambulancetransport time. Joyce is aware and agreeable to discharge plan. R N is aware.Spoke with Chica in admissions at [facility], pt is accepted, ashu cason isaware of transport time and is prepared to accept the pt.[facility] [address] [address]Lmmzysdc: CARIN Ski Molder and CM Director spoke with Montanajarrodjamison who is aware andagreeable to discharge. Name Value Range Interpretation Code Description Data [facility] Supporting Document(s ) ID Date Data Source [id number] 05/05/2019 01:26:20 PM [facility] Pt is alert calm no signs or symptoms of pain or discomfort o2 sats have ddmq43-08% on current ventilator settings Name Value Range Interpretation Code Description Data [facility](s) Supporting Document(s ) ID Date Data Source [id number] 05/05/2019 12:18:22 PM [facility] Progress NoteMID-SC[facility] ,[facility].Krysitan Monae MD., F.C.C.P.Stella Hamilton MD., F.C.C.P. [address] [place] [address] [place] [address] Patient: Telly grimm Sex: male [...] 24 hrs: BP Temp Pulse Resp SpO2 Mzfxbw74/21/20 1123 136/82 - 84 20 97 % [...] H2O) : 10PEEP/VENT (cm H2O): 5 cm X89Kosq PEEP Observed (cm H2O): 2.3 cm W4DLghy Rate T idal Volume Pressure FiO2 PEEPPRVC 400 ml 10 cm H2O 40 % 5 cm E37Dgoi airway press ure: 16 cm C2QPkqjgd ventilation: 6.8 l/minARDS network Guidelines: Lung prote [...] Tidal volume 400 RATE 12 Performed by [id number]:Recent Labs 05/0405/03/200456PH 7.53* 7.55* 7.54*PCO2 41 41 41PO2 147* 84 56*HCO3 34* 36* 35*F IO2 40.0 40.0 40.0Recent Glucose Results: No results found for: GLU, GLUPOC, GLUCPOC@ LABAPCYTOINTERPRETATION@CULTURESAll Micro Results Procedure Component Value Units Date/Time CULTURE, BLOOD [[id number]] Collected: 04/25/19 1210 Order Status: Completed Specimen: Blood Updated: 04/30/19 1352 Special Requests: NO SPEC IAL REQUESTS Culture result: NO GROWTH 5 DAYS CULTURE, BLOOD [[id number]] Collecte d: 04/25/19 1205 Order Status: Completed Specimen: Blood Updated: 04/30/19 1352 Special Requests: NO SPECIAL REQUESTS Culture result: NO GROWTH 5 DAYS CULTURE , RESPIRATORY/SPUTUM/BRONCH W GRAM STAIN [[id number]] (Abnormal)(Susceptibility) Collected: 04/26/19 1700 Order Status: Completed Specimen: Sputum from Trachea l Aspirate Updated:04/29/19 1051 Special Requests: NO SPECIAL REQUESTS GRAM STAI N 10-25 WBC/lpf <10 EPI/lpf FEW GRAM POSITIVE RODS Culture result: MODERATE PSEUDOMONAS AERUGINOSA C. DIFFICILE (DNA) [[id number]] Collected: 04/27/19 0915 Or bassem Status: Completed Specimen: Stool Updated: 04/27/19 1246 C. difficile (D NA) NEGATIVE Comment: This specimen is negative for toxigenic C difficile by DN Aamplification. Repeat testing is not recommended for confirmation, samplesrec eived within 7 days of this negative result will be rejected. C. DIFFICILE (DNA) [[id number]] (Abnormal) Collected: 04/25/19 1715 Order Status: Completed Specimen: Stool Updated: 04/26/19 1551 C. difficile (DNA) TEST RESULT IS INCONCLUSIVE. DANIEL GRAHAM SUBMIT A NEW SPECIMEN FOR ANALYSIS. CULTURE, URINE [[id number]] Collected: 0 04/25/19 1147 Order Status: Completed Specimen: Urine from Clean catch Update d: Special Requests: NO SPECIAL REQUESTS Culture result: NO HAIDER WTH 1 DAY C. DIFFICILE (DNA) [[id number]] Collected: 04/26/19 0930 Order Status: Canceled Specimen: Stool CULTURE, BLOOD [[id number]] Collected: 04/20/19 1440 Or bassem Status: Completed Specimen: Blood Updated: 04/26/19 08 Special Request s: NO SPECIAL REQUESTS Culture result: NO GROWTH 6 DAYS CULTURE, BLOOD [[id number]] Collected: 04/20/19 1447 Order Status: Completed Specimen: Blood Updated: 04/03 Special Requests: NO SPECIAL REQUESTS Culture result: NO GROWTH 6 DA YS CULTURE, BLOOD [[id number]] (Abnormal) Collected: 04/19/19 1005 Order Status: Completed Specimen: Blood Updated: 04/22/19 0731 Special Requests: NO SPEC IAL REQUESTS GRAM STAIN GRAM POSITIVE COCCI IN CLUSTERS ANAEROBIC BOTTLE CALLED TO AND READ BACK BY ROB LEDEZMA RN, ED, 0953 ON 04/20/19 TORISMIRAGLIA Culture re sult: STAPHYLOCOCCUS EPIDERMIDIS : Refer to previous culture(s) for susceptibilityre sults CULTURE, BLOOD [[id number]] (Abnormal) (Susceptibility) Collected: 04/19/20091 5 Order Status: [...] GiResult Date: 04/29/2019History: J-tube placement. FINDINGS: A translator and interpreter film of the abdomen reveals a tubeoverlying [...] Patient Name: EVELIO CARLIN FINAL REPORTFROM IMAGING RESIDENTIAL SALES REPRESENTATIVE EXAM: C T chest without contrast and [...] swelling with possiblehematoma and calcification at [facility] groin image 117/120. Degenerative bonychanges. Multiple likely [...] 04/20/2019 22:43 GINA Jenkins.Please call Katja berger Canal Structure Operator [phone] ([phone]) with questions. This reportwas electronically signed by: [...] are identified that would besuspicious for, or vaccine customer representative of DVT.IMPRESSION : 1. No sonographic findings suggestive of thrombosis within thevisualized portions of the deep venous system of the left upper extremity.Duplex Upper Ext Venous RightR esult Date: 04/26/2019RIGHT UPPER EXTREMITY DOPPLER HISTORY: Pain and swelling. High -resolution linearsonography of the right upper extremity was performed using [place] r Doppler Flowand Duplex Doppler Spectral sonography. [...] (porcine) injection 5,000 Units 5,000 Units SubCUTAneous [id number] Problems: Pneum onia (11/08/2018) Acute hypoxemic respiratory failure (HCC) (03/25/2019) COPD with ac [place] exacerbation (HCC) (04/19/2019) Acute on chronic respiratory [...] PNEUMONIA - G N R , PSEUDOMONAS [id number]. SEPSIS L A = 2.5 RESOL VING [...] Supporting Document(s ) ID Date Data Source [id number] 05/05/2019 12:46:06 PM EST [facility] Name Value Range Interpretation Description Data Sup porting Code Source(s) Document(s ) pH of Arterial 7.53 7.35-7.4 Above high normal [facility] - [facility] blood [address] [place] [address] Carbon dioxide 41 mmHg 32-48 [facility] - [facility] [Partial Zoroastrianism pressure] in Hospital Arterial blood Oxygen 147 mmHg 83-108 Above high normal [facility] - [facility] [Partial Zoroastrianism pressure] in Hospital Arterial blood Carbon 36 19-24 Above high normal [facility] - [facility] dioxide, total mmol/L [facility]ism [Moles/volume] Hospital in Arterial blood Bicarbonate 34 21-28 Above high normal [facility] - Go od [Moles/volume] mmol/L [facility] in Arterial Hospital blood Oxygen 99 % 94-98 Above high normal [facility] - [facility] saturation in Zoroastrianism Blood [facility] Base excess in 10.5 0-3 Above high normal [facility] - [facility] Arterial blood mmol/L [facility]ism by calculation Hospital Base deficit 0-2 [facility] - [facility] in Arterial [facility] Body site [facility] Arterial [facility] - [facility] patency Wrist Zoroastrianism artery --pre Hospital arterial puncture Oxygen/Inspire 40.0 % [facility] - [facility] d gas [facility] system --on ventilator Ventilation [facility] - [facility] mode Zoroastrianism [Identifier] [facility] Ventilator PEEP 5 [facility] - [facility] Respiratory [facility] Tidal volume 400 [facility] - [facility] setting [facility] Hospital Respiratory 12 [facility] - [facility] rate [facility] Service [address] [facility] - [facility] comment [facility] ID Date Data Source [id number] 05/05/2019 11:42:54 AM EST [facility] - [facility] Name Value Range Interpretation Description Data Sup porting Code Source(s) Document(s ) pH of Arterial 7.53 7.35-7.4 Above high normal [facility] - [facility] blood [address] [place] [address] Carbon dioxide 41 mmHg 32-48 [facility] - [facility] [Partial Zoroastrianism pressure] in Hospital Arterial blood Oxygen 147 mmHg 83-108 Above high normal [facility] - [facility] [Partial Zoroastrianism pressure] in Hospital Arterial blood Carbon 36 19-24 Above high normal [facility] - Good dioxide, total mmol/L [facility]ism [Moles/volume] [facility] in Arterial blood Bicarbonate 34 21-28 Above high normal [facility] - Go od [Moles/volume] mmol/L [facility] in Arterial Hospital blood Oxygen 99 % 94-98 Above high normal [facility] - [facility] saturation in [facility]oroastrianism Blood [facility] Base excess in 10.5 0-3 Above high normal [facility] - Good Arterial blood mmol/L [facility]ism by calculation Hospital Body site [facility] Arterial [facility] - Good patency Wrist [facility]rianism artery --pre Hospital arterial puncture Oxygen/Inspire 40.0 % [facility] - Good d gas [facility] Respiratory Hospital system --on ventilator Ventilation [facility] - Good mode [facility]astrianism [Identifier] [facility] Ventilator PEEP 5 [facility] - [facility] Respiratory [facility] Tidal volume 400 [facility] - [facility] setting [facility] Respiratory 12 [facility] - Good rate [facility] Service [address] [facility] - [facility] comment [facility] Hospital ID Date Data Source [id number] 05/05/2019 10:43:29 AM EST [facility] ID Progress Note05/05/2019Subjective:S/p tracheostomy and jejunostomy tube placement.No event overnightBlood cx rem ain negativeResp cx with pseudomonasOn vent support.Wbc wnlAfebrileObjective:Review of SystemsPatient is unable to provideVitals:Patient Vitals for the pas t 24 hrs: BP Temp Pulse Resp SpO2 Fhwfkh10/21/20 0930 - - 83 20 97 % [...] (porcine) injection 5,000 Units 5,000 Units SubCUTAneous N61EBwov:Recent Labs 05/0405/03/200315WBC 8.8 10.3HGB 8.7* 9.1*PLT 452* [...] Supporting Document(s ) ID Date Data Source [id number] 05/05/2019 10:17:22 AM [facility] Progress NoteCoverage for Dr Carroll Carlin is [...] injection 5,000 Units 5,000 U nits SubCUTAneous [id number] Exam:Physical Exam:General: Alert, cooperative, no di stress, [...] Supporting Document(s ) ID Date Data Source [id number] 05/05/2019 08:43:57 AM EST [facility] RENAL Progress NoteEvelio Carlin68 y .o.Admit Date: [...] - 05/05/19 0659 05/05/19699 - 05/06/19 0659Shift 8392-2001 0914-3596 24 Hour Total 3660-7390 8612-3227 24 Hour TotalINTAKENG/GT 740 740 Water Flush Volume (mL) (G/J Tube) 200 200 Intake (ml) (G/J Tube) 540 540Shif t Total(mL/kg) 740(13.4) 740(13.4)OUTPUTUrine(mL/kg/hr) 900(1.4) 600(0.9) 1500(1.1) Urine Voided 450 450 Urine Output (mL) (Condom Catheter 05/02) 450 600 1050Emesis/NG output 400 400 Output (ml) (PEG/Gastrostomy Tube) 400 400Shift Total(mL/kg) 900(16.4) 1000(18.1) 1900(34.5)NET -650 -616 -7184Weight (kg) 54.9 55.1 55.1 55.1 55.1 55.1Medications [...] in jection 40 mg 40 mg IntraVENous D43PJsuwwzjxoKareen gonzales MD 40 mg at 05/04/192152 vancomycin 50 mg/mL oral solution (compounded) 125 mg 125 mg Per G Tube C3XGymfpcgewKareen gonzales MD 125 mg at 05/05/19 0530 lamoTRIgine [...] i njection 5,000 Units 5,000 Units SubCUTAneous I77HIwtroaamgKareen gonzales M D 5,000 Units at 05/05/19 [...] Name Value Range Interpretation Code Description Data [facility] rce(s) Supporting Document(s ) ID Date Data Source [id number] 05/05/2019 07:56:49 AM [facility] Bedside and Verbal shift change report g iven to Tatum Darby RN (oncomingnurse) by Elizabeth Campbell RN (offgoing nurse). Report included the followinginformation SBAR, Kardex, Intake/Output, MAR and Cardiac R hythm NSR. Name Value Range Interpretation Code Description Data [facility] rce(s) Supporting Document(s ) ID Date Data Source [id number] 05/05/2019 04:48:01 AM [facility] Name Value Range Interpretation Description Data Sup porting Code Source(s) Document(s ) Magnesium 2.7 mg/dL 1.6-2.6 Above high normal [facility] [Mass/volume] Zoroastrianism in Serum or Hospital Plasma ID Date Data Source [id number] 05/05/2019 04:02:36 AM [facility] Problem: Falls - Risk ofGoal: *Absence [...] Name Value Range Interpretation Code Description Data [facility] rce(s) Supporting Document(s ) ID Date Data Source [id number] 05/04/2019 07:36:08 PM [facility] Bedside and Verbal shift change report carol EMMANUEL RN (oncoming nurse) Mahnaz DOYLE RN (offgoing nurse). Report inclu ded the following informationSBAR, Kardex, ED Summary, Intake/Output, MAR, Recent Resu lts, Med Rec Status andCardiac Rhythm NSR. Name Value Range Interpretation Code Description [facility] ) ID Date Data Source [id number] 05/04/2019 07:18:10 PM [facility] Reviewed Ventilator Settings with onc oming RT edwin root.Alarms, Settings, Weaning , Transports. Ventilator wiped d own with bleachwipes.RT Clarisa Name Value Range Interpretation Code Description [facility] Supporting Document(s ) ID Date Data Source [id number] 05/04/2019 04:56:18 PM [facility] Problem: Ventilator ManagementGoal: *Stephanie quate oxygenation and ventilationOutcome: Progressing Towards GoalGoal: *Patient m aintains clear airway/free of aspirationOutcome: Progressing Towards G oalGoal: *Absence of infection signs and symptomsOutcome: Progressing Towards Goa lGoal: *Normal spontaneous ventilationOutcome: Progressing Towards GoalProblem: Patient Education: Go to Patient Education ActivityGoal: Patient/Family E ducationOutcome: Progressing Towards Goal Name Value Range Interpretation Code Description Data [facility] Supporting Document(s ) ID Date Data Source [id number] 05/04/2019 01:33:02 PM [facility] Critical Care Progress [facility]Krystian Monae MD., F.C.C.P.Stella Hamilton MD., F.C.C.P. [address] [place] [address] [place] [address] Name: Evelio VierascottbeinDOB: 1950MRN: [...] 24 hrs: BP Temp Pulse Resp SpO2 Tzkebb22 1302 150/84 97.8 F (36.6 C) 72 [...] H2O) : 6PEEP/VENT (cm H2O): 5 cm U15Dduu PEEP Observed (cm H2O): 2.3 cm U6SPscd Rate T idal Volume Pressure FiO2 PEEPPRVC 400 ml 10 cm H2O 40 % 5 cm G86Ytdj airway press ure: 15 cm Q3TGwipxz ventilation: 6.6 l/minARDS network Guidelines: Lung prote [...] (porcine) injection 5,000 Units 5,000 Units SubCUTAneous C00EZganlvwub: [x]Sinus []A -flutter []Paced []A-fib []Multiple PVC'sLabs:Recent [...] Tidal volume 400 RATE 15 Performed by [id number]:Recent Labs 05/04/200449 56 05/02/200450PH 7.55* 7.54* 7.51*PCO2 41 41 47PO2 84 56* 74*HCO3 36* 35* 38*FIO2 40.0 40.0 40.0Recent Glucose Results:Lab ResultsComponent Value Date/ Time GLU 156 (H) 05/04/2019 04:12 AMCULTURES:All Micro Results Procedure C omponent Value Units Date/Time CULTURE, BLOOD [[id number]] Collected: 04/25/19 1210 Or bassem Status: Completed Specimen: Blood Updated: 04/30/19 135 Special Request s: NO SPECIAL REQUESTS Culture result: NO GROWTH 5 DAYS CULTURE, BLOOD [[id number]] Collected: 04/25/19 1205 Order Status: Completed Specimen: Blood Updated: 135 Special Requests: NO SPECIAL REQUESTS Culture result: NO GROWTH 5 DA YS CULTURE, RESPIRATORY/SPUTUM/BRONCH W GRAM STAIN [[id number]] (Abnormal)(Susceptibi lity) Collected: 04/26/19 1700 Order Status: Completed Specimen: Sputum from Trache al Aspirate Updated:04/29/19 1051 Special Requests: NO SPECIAL REQUESTS GRAM STAI N 10-25 WBC/lpf <10 EPI/lpf FEW GRAM POSITIVE RODS Culture result: MODERATE PSEUDOMONAS AERUGINOSA C. DIFFICILE (DNA) [[id number]] Collected: 04/27/19 0915 Or bassem Status: Completed Specimen: Stool Updated: 04/27/19 1246 C. difficile (D NA) NEGATIVE Comment: This specimen is negative for toxigenic C difficile by DN Aamplification. Repeat testing is not recommended for confirmation, samplesrec eived within 7 days of this negative result will be rejected. C. DIFFICILE (DNA) [[id number]] (Abnormal) Collected: 04/25/19 1715 Order Status: Completed Specimen: Stool Updated: 04/26/19 1551 C. difficile (DNA) TEST RESULT IS INCONCLUSIVE. MINADevang GRAHAM SUBMIT A NEW SPECIMEN FOR ANALYSIS. CULTURE, URINE [[id number]] Collected: 0 04/25/19 1147 Order Status: Completed Specimen: Urine from Clean catch Update d: Special Requests: NO SPECIAL REQUESTS Culture result: NO HAIDER WTH 1 DAY C. DIFFICILE (DNA) [[id number]] Collected: 04/26/19 0930 Order Status: Canceled Specimen: Stool CULTURE, BLOOD [[id number]] Collected: 04/20/19 1440 Or bassem Status: Completed Specimen: Blood Updated: 04/26/19817 Special Request s: NO SPECIAL REQUESTS Culture result: NO GROWTH 6 DAYS CULTURE, BLOOD [[id number]] Collected: 04/20/19 1447 Order Status: Completed Specimen: Blood Updated: 04/03 Special Requests: NO SPECIAL REQUESTS Culture result: NO GROWTH 6 DA YS CULTURE, BLOOD [[id number]] (Abnormal) Collected: 04/19/19 1005 Order Status: Completed Specimen: Blood Updated: 04/22/19 0731 Special Requests: NO SPEC IAL REQUESTS GRAM STAIN GRAM POSITIVE COCCI IN CLUSTERS ANAEROBIC BOTTLE CALLED TO AND READ BACK BY ROB LEDEZMA,RN, ED, [id number] ON 04/20/19 CELIIA Culture re sult: STAPHYLOCOCCUS EPIDERMIDIS : Refer to previous culture(s) for susceptibilityre sults CULTURE, BLOOD [[id number]] (Abnormal) (Susceptibility) Collected: 5 Order Status: Completed [...] MD04/20/2019 22:43 ESTM.D. Please call I maging Canal Structure Operator [phone] ([phone]) withquestions.This report was electronic ally signed by:Marcie [...] the procedure or anatomicalre gions you entered.Example: .BSHSILASTIMGCAT[[id number]:3This example wo uld display results for the last three orders with an externalprocedure ID of [id number] he patient is: [x] acutely ill Risk [...] - G N R , PSEUDOMONAS A OMXKNOHSW23. SEPSIS L A = 2.5 RESOLVING 11. [...] Supporting Document(s ) ID Date Data Source [id number] 05/04/2019 01:13:46 PM EST [facility] Received the patient from CCU via bed ac companied by RN and RT.Patient has trach and on mechanical vent .On JT feeding osmol ite 1.5.Patient has Flexiseal and peg drain present.Will continue to monitor. Name Value Range Interpretation Code Description Data Harriett rce(s) Supporting Document(s ) ID Date Data Source [id number] 05/04/2019 11:50:45 AM EST [facility] ID Progress Note05/04/2019Subjective:Bloo d cx remain negativeResp cx with pseudomonasS/p tracheostomy and jejunost rosina tube placement.On vent support.Wbc trending downLow grade fever.Objective:Justin jules of SystemsPatient is unable to provideVitals:Patient Vitals for the pas t 24 hrs: BP Temp Pulse Resp SpO2 Hodmbn79/20/20 1100 - - 74 15 - - [...] (porcine) injection 5,000 Units 5,000 Units SubCUTAneous U20YAttk:Recent Labs 01/20 05/03/200305/02/200330WBC 8.8 10.3 16.1*HGB 8.7* [...] Continue meropenem2. Continue or al vancomycin prophylaxis americaFomalaika Dudley MDJanuary 201911:49 AM Name Value Range Interpretation Code Description Data [facility] Supporting Document(s ) ID Date Data Source [id number] 05/04/2019 11:42:51 AM EST [facility] Unable to access merrem dose because dur ation of administration changed andorder d/c. Note send to pharmacy to re profile medi cation so can accessmedication, relayed this information to Leodan PITTS on 3N Name Value Range Interpretation Code Description Data [facility](s) Supporting Document(s ) ID Date Data Source [id number] 05/04/2019 11:23:25 AM EST [facility] TRANSFER - OUT REPORT:Verbal report give [...] Supporting Document(s ) ID Date Data Source [id number] 05/04/2019 10:17:03 AM EST [facility] YUAN done and placed into chart. Name Value Range Interpretation Code Description Data Harriett rce(s) Supporting Document(s ) ID Date Data Source [id number] 05/04/2019 10:14:22 AM [facility] ICU - Progress NoteCoverage for Dr [...] (porcine) injection 5,000 Units 5,000 Units SubCUTAneous N19BXjqwdqpp Exam:Physical Exam:General: Alert, cooperative, no distress, on [...] Supporting Document(s ) ID Date Data Source [id number] 05/04/2019 10:05:26 AM [facility] TRANSFER - IN REPORT:Verbal report recei nathaly from carole RN(name) on Evelio Carlin beingreceived from CCU(unit) for routine progression of careReport consisted of patient's Situation, Backgr ound, Assessment andRecommendations(SBAR).Information fro m the following report(s) SBAR, Kardex, ED Summary, ProcedureSummary, MAR, Recent R esults, Med Rec Status and Cardiac Rhythm NSR was reviewedwith the receiving nurse.[place] ortunity for questions and clarification was provided.Assessment completed upon patie nt's arrival to unit and care assumed. Name Value Range Interpretation Code Description Data Harriett rce(s) Supporting Document(s ) ID Date Data Source [id number] 05/04/2019 08:59:25 AM [facility] Pt not sandhya PSV and RN placed back on pre vious settings Name Value Range Interpretation Code Description Data Harriett rce(s) Supporting Document(s ) ID Date Data Source [id number] 05/04/2019 08:52:09 AM [facility] Progress NoteEvelio Carlin68 y.o.Adm it Date: [...] 065 9 05/04/19 0700 - 05/05/19 0659Shift [id number] 7214-9488 24 Hour Total 0700-1 859 5943-3079 24 Hour TotalINTAKEI.V.(mL/kg/hr) 50(0.1) 50(0) Volume (meropenem (MERREM) 500 mg in 0.9% sodium chloride (MBP/ADV) 50 mL MBP)50 50NG/GT 586 629 8563 Water Flush Volume (mL) (G/J Tube) 290 [...] CHEN-MEDROL) injection 40 mg 40 mg IntraVENous N53ZQyrtqxmguKareen gonzales MD 40 mg at 05/04/19 0846 vancomycin 50 mg/mL oral solution (compounded) 125 mg 125 mg Per G Tube U3WOpxkruiooKareen gonzales MD 125 mg at 05/04/19 0509 [...] miconazole (MICOTIN) 2 % cream Topical BID aKreen Mills MD bu desonide (PULMICORT) 500 mcg/2 ml nebulizer suspension 500 mcg NebulizationBID RT L Kareen gonzales MD 500 mcg at 05/04/19 0828 cinacalcet (SENSIPAR) tablet 60 mg 60 mg Oral DAILY Kareen Mills MD60 mg at 05/04/19 0845 heparin (porcine) i njection 5,000 Units 5,000 Units SubCUTAneous A24MRkxqqsyjzKareen gonzales M D 5,000 Units at 05/04/19 [...] Tidal volume 400 RATE 15 Performed by [id number]:Xr Chest Sngl VResult Da te: 05/04/2019History: Respiratory [...] Supporting Document(s ) ID Date Data Source [id number] 05/04/2019 08:04:54 AM EST [facility] History:Respiratory difficulty.FINDINGS: A frontal portable view of the chest is compared [facility].The tracheostomy tube and EKG [...] Name Value Range Interpretation Code Description Data [facility] rce(s) Supporting Document(s ) ID Date Data Source [id number] 05/04/2019 07:27:41 AM EST [facility] Bedside and Verbal shift change report g ellynen to Carole RN (oncoming nurse)by Danial PITTS (offgoing nurse). Report inclu ded the following information SBAR,Kardex, Intake/Output, MAR, Recent Results, Med Rec Status, Cardiac Rhythm NSRand Alarm Parameters . Name Value Range Interpretation Code Description Data [facility] rce(s) Supporting Document(s ) ID Date Data Source [id number] 05/04/2019 07:02:29 AM EST [facility] Temp was 100.8 F @ 0515; Tylenol 650 mg given via Jtube. See MAR Name Value Range Interpretation Code Description Data [facility] rce(s) Supporting Document(s ) ID Date Data Source [id number] 05/04/2019 06:54:57 AM EST [facility] Name Value Range Interpretation Description Data Sup porting Code Source(s) Document(s ) pH of Arterial 7.55 7.35-7.4 Above high normal [facility] - Good blood [address] [place] [address] Carbon dioxide 41 mmHg 32-48 [facility] [Partial Zoroastrianism pressure] in Hospital Arterial blood Oxygen 84 mmHg 83-108 [facility] - Good [Partial Zoroastrianism pressure] in Hospital Arterial blood Carbon 37 19-24 Above high normal [facility] - Good dioxide, total mmol/L Zoroastrianism [Moles/volume] Hospital in Arterial blood Bicarbonate 36 21-28 Above high normal [facility] - Go od [Moles/volume] mmol/L Zoroastrianism in Arterial Hospital blood Oxygen 99 % 94-98 Above high normal [facility] Good saturation in [facility] Base excess in 12.3 0-3 Above high normal [facility] - Good Arterial blood mmol/L Zoroastrianism by calculation Hospital Body site [facility] Good [facility] Arterial [facility] - Good patency Wrist Zoroastrianism artery --pre Hospital arterial puncture Oxygen gas [facility] - Good flow Oxygen [facility] system Oxygen/Inspire 40.0 % [facility] - Good d gas [facility] system --on ventilator Ventilation [facility] - Good mode Zoroastrianism [Identifier] [facility] Ventilator PEEP 5 [facility] - Good Respiratory Zoroastrianism system Hospital Tidal volume 400 [facility] - Good setting Zoroastrianism Ventilator Hospital Respiratory 15 [facility] - Good rate [facility] Service [address] [facility] - Good comment [facility] ID Date Data Source [id number] 05/04/2019 05:45:48 AM EST [facility] Name Value Range Interpretation Description Data Sup porting Code Source(s) Document(s ) Leukocytes 8.8 K/uL 4.8-10.6 [facility] - [#/volume] in Good Blood by Zoroastrianism Automated count [facility] Erythrocytes 2.83 4.70-6.0 Below low normal [facility] - [#/volume] in M/uL 0 Good Blood by Zoroastrianism Automated count [facility] Hemoglobin 8.7 g/dL 14.0-18. Below low normal [facility] - [Mass/volume] in 0 Good Blood [facility] Hematocrit 27.9 % 42.0-52. Below low normal [facility] - [Volume 0 Good Fraction] of Zoroastrianism Blood by Hospital Automated count Erythrocyte mean 98.6 FL 81.0-94. Above high normal [facility] - corpuscular 0 Good volume [Entitic Zoroastrianism volume] by Hospital Automated count Erythrocyte mean 30.7 PG 27.0-35. [facility] - corpuscular 0 Good hemoglobin Zoroastrianism [Entitic mass] [facility] by Automated count Erythrocyte mean 31.2 30.7-37. [facility] - corpuscular g/dL 3 Good hemoglobin [facility] [Mass/volume] by Automated count Erythrocyte 18.3 % 11.5-14. Above high normal [facility] - distribution 0 Good width [Ratio] by Zoroastrianism Automated count [facility] Platelets 452 K/uL 130-400 Above high normal [facility] - [#/volume] in Good Blood by Zoroastrianism Automated count Hospital Platelet mean 9.9 FL 9.2-11.8 [facility] - volume [Entitic Good volume] in [facility] by Automated Hospital count Nucleated 0.0 PER 0 [facility] - erythrocytes/100 100 WBC Good leukocytes Zoroastrianism [Ratio] in Blood [facility] Nucleated 0.00 0.0-0.01 [facility] - erythrocytes K/uL Good [#/volume] in [facility] Segmented 88 % 48.0-72. Above high normal [facility] - neutrophils/100 [address] [facility] Lymphocytes/100 8 % 18.0-40. Below low normal [facility] - leukocytes in 0 [facility] Monocytes/100 4 % 2.0-12.0 [facility] - leukocytes in [facility] Eosinophils/100 0 % 0.0-7.0 [facility] - leukocytes in [facility] Basophils/100 0 % 0.0-3.0 [facility] - leukocytes in [facility] Immature 1 % 0-0.5 Above high normal [facility] - granulocytes/100 Good leukocytes in [facility] by Hospital Automated count Segmented 7.7 K/UL 2.3-7.6 Above high normal [facility] - neutrophils Good [#/volume] in [facility] Lymphocytes 0.7 K/UL 0.9-4.2 Below low normal [facility] - [#/volume] in [facility] Monocytes 0.4 K/UL 0.1-1.7 [facility] - [#/volume] in [facility] Eosinophils 0.0 K/UL 0.0-1.0 [facility] - [#/volume] in [facility] Basophils 0.0 K/UL 0.0-0.4 [facility] - [#/volume] in [facility] Immature 0.0 K/UL 0.0-0.17 [facility] - granulocytes Good [#/volume] in [facility] by Hospital Automated count Differential [facility] - cell count Good method [facility] ID Date Data Source [id number] 05/04/2019 05:10:06 AM EST [facility] Name Value Range Interpretation Description Data Sup porting Code Source(s) Document(s ) Sodium 147 136-145 Above high [facility] - [Moles/volume] in mmol/L normal Good Serum or Plasma [facility] Potassium 3.7 3.5-5.1 [facility] - [Moles/volume] in mmol/L Good Serum or Plasma [facility] Chloride 110 98-107 Above high [facility] - [Moles/volume] in mmol/L normal Good Serum or Plasma [facility] Carbon dioxide, 33 21-32 Above high [facility] - total mmol/L normal Good [Moles/volume] in Zoroastrianism Serum or Plasma Hospital Anion gap in Serum 8 10-20 Below low normal [facility] - or Plasma mmol/L [facility] Glucose 156 74-106 Above high [facility] - [Mass/volume] in mg/dL normal Good Serum or Plasma [facility] Urea nitrogen 43 7-18 Above high [facility] - [Mass/volume] in mg/dL normal Good Serum or Plasma [facility] Creatinine 2.12 0.70-1. Above high [facility] - [Mass/volume] in mg/dL 30 normal Good Serum or Plasma [facility] Glomerular 40 >60 Below low normal [facility] - filtration ml/min/ Good rate/1.73 sq M 1.73m2 Zoroastrianism predicted among Hospital blacks [Volume Rate/Area] in Serum or Plasma by Creatinine-based formula (MDRD) Glomerular 33 >60 Below low normal [facility] - filtration ml/min/ Good rate/1.73 sq M 1.73m2 Zoroastrianism predicted among Hospital non-blacks [Volume Rate/Area] in Serum or Plasma by Creatinine-based formula (MDRD) Calcium 10.1 8.5-10. [facility] - [Mass/volume] in mg/dL 1 Good Serum or Plasma [facility] Bilirubin.total 0.3 0.2-1.0 [facility] - [Mass/volume] in mg/dL Good Serum or Plasma [facility] Alanine 8 U/L 13-61 Below low normal [facility] - aminotransferase Good [Enzymatic Zoroastrianism activity/volume] in Hospital Serum or Plasma Aspartate 9 U/L 15-37 Below low normal [facility] - aminotransferase Good [Enzymatic Zoroastrianism activity/volume] in Hospital Serum or Plasma by With P-5'-P Alkaline 66 U/L 45-117 [facility] - phosphatase Good [Enzymatic Zoroastrianism activity/volume] in Hospital Serum or Plasma Protein 6.4 6.4-8.2 [facility] - [Mass/volume] in g/dL Good Serum or Plasma [facility] Albumin 2.2 3.5-4.7 Below low normal [facility] - [Mass/volume] in g/dL Good Serum or Plasma by [facility] ([facility]) dye binding method Globulin 4.2 1.7-4.7 [facility] - [Mass/volume] in g/dL Good Serum by [facility] Albumin/Globulin 0.5 0.7-2.8 Below low normal [facility] - [Mass Ratio] in Good Serum or Plasma [facility] ID Date Data Source [id number] 05/04/2019 05:10:06 AM EST [facility] Name Value Range Interpretation Description Data Sup porting Code Source(s) Document(s ) Magnesium 2.7 mg/dL 1.6-2.6 Above high normal [facility] [Mass/volume] Zoroastrianism in Serum or Hospital Plasma ID Date Data Source [id number] 05/03/2019 08:21:13 PM EST [facility] Critical Care Progress N [facility]Krystian Monae MD., F.C.C.P.Stella Hamilton MD., F.C.C.P. 9W 1 [facility] [address] [place] [address] [place] [address] Name: Evelio JohnsoninDOB: 1950MRN: [...] hrs : BP Temp Pulse Resp SpO2 Jdgkcw44/19/20 2000 108/54 99.5 F (37.5 C) 92 [...] (cm H2O): 8PEEP/VENT (cm H2O): 5 cm J39Ijke PEEP Observed (cm H2O): 2.3 cm I4WQfwg Rate Tidal Volume Pressure FiO2 PEEPPressure support 400 ml 10 cm H2O 40 % 5 cm B53Cmwf airway pressure: 16 cm Q5SZoqjdh ventilation: 6 l/minARDS netwo rk Guidelines: Lung [...] injection 5,000 Units 5,000 U nits SubCUTAneous H12XReeyryttr: [x]Sinus []A-flutter []Paced []A-fib []Multiple P VC'sLabs:Recent [...] Tidal volume 400 RATE 15 Performed by [id number]:Recent Labs 05/03/200456 05/02/200450 P H 7.54* 7.51* 7.50*PCO2 41 47 48PO2 56* 74* 71*HCO3 35* 38* 37*FIO2 40.0 40.0 --Rec ent Glucose Results:Lab ResultsComponent Value Date/Time GLU 116 (H) 05/03/2019 0 4:15 AMCULTURES:All Micro Results Procedure Component Value Units Date/Time CULTURE, BLOOD [[id number]] Collected: 04/25/19 1210 Order Status: Completed Specimen: Bloo d Updated: 04/30/19 1352 Special Requests: NO SPECIAL REQUESTS Culture result: NO GROWTH 5 DAYS CULTURE, BLOOD [[id number]] Collected: 04/25/19 1205 Order Status: Completed Specimen: Blood Updated: 04/30/19 1352 Special Requests: NO SPEC IAL REQUESTS Culture result: NO GROWTH 5 DAYS CULTURE, RESPIRATORY/SPUTUM/BRONCH W GRAM STAIN [[id number]] (Abnormal)(Susceptibility) Collected: 0 04/26/19 1700 Order Status: Completed Specimen: Sputum from Tracheal Aspirate Updated:04/29/19 1051 Special Requests: NO SPECIAL REQUESTS GRAM STAIN 10-25 WBC/l pf <10 EPI/lpf FEW GRAM POSITIVE RODS Culture result: MODERATE PSEUDOMONAS AE RUGINOSA C. DIFFICILE (DNA) [[id number]] Collected: 04/27/19 0915 Order Status: Completed Specimen: Stool Updated: 04/27/19 1246 C. difficile (DNA) NEGATI VE Comment: This specimen is negative for toxigenic C difficile by DNAamplificatio n. Repeat testing is not recommended for confirmation, samplesreceived within 7 d ays of this negative result will be rejected. C. DIFFICILE (DNA) [[id number]] (Abnorma l) Collected: 04/25/19 1715 Order Status: Completed Specimen: Stool Updated: 04/03 1551 C. difficile (DNA) TEST RESULT IS INCONCLUSIVE. PLEASE SUBMIT A NEW SPE CIMEN FOR ANALYSIS. CULTURE, URINE [[id number]] Collected: 04/25/19 1147 Or bassem Status: Completed Specimen: Urine from Clean catch Updated: Spec ial Requests: NO SPECIAL REQUESTS Culture result: NO GROWTH 1 DAY C. DIFFICILE (DN A) [[id number]] Collected: 04/26/19 0930 Order Status: Canceled Specimen: Stool CULTURE, BLOOD [[id number]] Collected: 04/20/19 1440 Order Status: Completed S pecimen: Blood Updated: 04/26/19 0818 Special Requests: NO SPECIAL REQUESTS C ulture result: NO GROWTH 6 DAYS CULTURE, BLOOD [[id number]] Collected: 04/20/19 1 447 Order Status: Completed Specimen: Blood Updated: 04/26/19 0818 Special Request s: NO SPECIAL REQUESTS Culture result: NO GROWTH 6 DAYS CULTURE, BLOOD [[id number]] (Abnormal) Collected: 04/19/19 1005 Order Status: Completed Specimen: Blood Upda mikel: 04/22/19 0731 Special Requests: NO SPECIAL REQUESTS GRAM STAIN GRAM POSIT BRITNI COCCI IN CLUSTERS ANAEROBIC BOTTLE CALLED TO AND READ BACK BY ROB KNOX RN, ED, 0953 ON 04/20/19 TORISMIRAGLIA Culture result: STAPHYLOCOCCUS EPIDERMI DIS : Refer to previous culture(s) for susceptibilityresults CULTURE, BLOOD [[id number]] (Abnormal) (Susceptibility) Collected: 04/19/200915 Order Status: Completed [...] MD04/20/2019 22:43 GINA Jenkins. Please call Imaging Canal Structure Operator [phone] ([phone] withquestions.T his report was electronically signed by:Marcie [...] the procedure or anatomicalre gions you entered.Example: .BSHSILASTIMGCAT[[id number]:3This example wo uld display results for the last three orders with an externalprocedure ID of [id number] he patient is: [] acutely ill Risk [...] Name Value Range Interpretation Code Description Data [facility](s) Supporting Document(s ) ID Date Data Source [id number] 05/03/2019 07:33:13 PM EST [facility] Bedside and Verbal shift change report carol pham to Prema Mccormick (oncoming nurse) Samia Greer (offgoing nurse). Report include d the following information SBAR,Intake/Output, MAR, Recent Results and Cardiac Rhythm NSR.. Name Value Range Interpretation Code Description Data [facility](s) Supporting Document(s ) ID Date Data Source [id number] 05/03/2019 07:18:13 PM [facility] Reviewed Ventilator Settings with onc oming RT Clemencia Hunt, Settings, Weaning , Transports. Ventilator wiped d own with bleachwipes.Mario Harley, RT Name Value Range Interpretation Code Description Data [facility] rce(s) Supporting Document(s ) ID Date Data Source [id number] 05/03/2019 05:30:05 PM [facility] Awake,alert,not following any commands,t urned and repositioned every 2 hrs,skincare,mouth care done,lower extre m.very contracted,tolerating CPAP/PS,40%,kept onventilator per Dr Monae. Name Value Range Interpretation Code Description Data [facility] rce(s) Supporting Document(s ) ID Date Data Source [id number] 05/03/2019 05:25:17 PM [facility] Progress NoteEvelio Carlin68 y.o.Adm it Date: [...] 05/03/19 0659 05/03/19 07 - 05/04/19 0659Shift 5357-2435 6961-4332 24 Hour Total 6370-4536 4249-4083 24 Hour TotalINTAKEI.V.(mL/kg/ hr) 50(0.1) 50(0.1) 100(0.1) [...] 650 Urine Output (mL) (Condom Catheter 05/02/19) 104 376 9524 650 650Emesis/NG output 150 200 350 200 [...] CHEN-MEDROL) injection 40 mg 40 mg IntraVENous [id number] gonzales MD 40 mg at 05/03/19 0839 vancomycin 50 mg/mL oral solution (compounded) 125 mg 125 mg Per G Tube P7GUnrwtlwpfKareen gonzales MD 125 mg at 05/03/19 1229 meropenem (MERREM) 500 mg in 0.9% sodium chloride (MBP/ADV) 50 mL MBP 0.5 gIntraVENous Q1 2H Karene Mills MD 16.7 mL/hr at 05/03/19 0912 [...] i njection 5,000 Units 5,000 Units SubCUTAneous C48RJzihaacjmKareen gonzaels M D 5,000 Units at 05/03/19 0545Physical [...] Tidal volume 400 RATE 15 Performed by [id number]:Xr Chest Sngl VResult Date: 05/03/2019History: Pneumonia. FINDINGS: [...] hoursFollow up labsRenal coverage for Mireya Serrato [facility] 2019 Name Value Range Interpretation Code Description [facility] ) ID Date Data Source [id number] 05/03/2019 03:31:16 PM [facility] Patient placed on CPAP and PS. Will gissell elizondo along with NANCY See. Name Value Range Interpretation Code Description Data [facility] rce(s) Supporting Document(s ) ID Date Data Source [id number] 05/03/2019 01:50:12 PM [facility] Trial of CPAP5 PS10 40%,monitor closely. Name Value Range Interpretation Code Description Data [facility](s) Supporting Document(s ) ID Date Data Source [id number] 05/03/2019 11:55:42 AM EST [facility] ICU - Progress NoteCoverage for Dr [...] (porcine) injection 5,000 Units 5,000 Units SubCUTAneous P68VEuifhvnc Exam:Physical Exam:General: Alert, cooperative, no distress, on [...] the last 72 hours.Liver Enzymes Recent Labs [id number] 6.6ALB 2.2*AP 64SGOT 16Thyroid Studies Lab ResultsComponent [...] Supporting Document(s ) ID Date Data Source [id number] 05/03/2019 11:44:09 AM EST [facility] ID Progress Note05/03/2019Subjective:Even ts notedBlood cx remain negativeResp cx with pseudomonasS/p tracheostomy and jejunost rosina tube placement.On vent support.Wbc trending downLow grade fever.Objective:R eview of SystemsPatient is unable to provideVitals:Patient Vitals for the pas t 24 hrs: BP Temp Pulse Resp SpO2 Gyyqaz32/19/20 1100 108/54 99.5 F (37.5 C) 76 [...] (porcine) injection 5,000 Units 5,000 Units SubCUTAneous D10HFixe:Recent Labs 05/02/200305/01/200707WBC 10.3 16.1* 11.9*HGB 9.1* 9.4* [...] Name Value Range Interpretation Code Description Data [facility]s ) ID Date Data Source [id number] 05/03/2019 08:01:44 AM EST [facility] History:Pneumonia.FINDINGS:A frontal por table view of [...] Name Value Range Interpretation Code Description Data [facility] Supporting Document[facility]s ) ID Date Data Source [id number] 05/03/2019 07:18:13 AM EST [facility] Bedside shift change report given to Opabbey Greer RN (oncoming nurse) Thiago Ha (offgoing nurse). Report included the following information SBAR,Intake/Output, MAR, Recent Results and Cardiac Rhythm Sinus Tach. Name Value Range Interpretation Code Description Data [facility](s) Supporting Document(s ) ID Date Data Source [id number] 05/03/2019 05:57:15 AM EST [facility] Name Value Range Interpretation Description Data Sup porting Code Source(s) Document(s ) pH of Arterial 7.54 7.35-7.4 Above high normal [facility] - Good blood 5 [facility] Carbon dioxide 41 mmHg 32-48 [facility] - Good [Partial Zoroastrianism pressure] in Hospital Arterial blood Oxygen 56 mmHg 83-108 Below low normal [facility] - Good [Partial Zoroastrianism pressure] in Hospital Arterial blood Carbon 36 19-24 Above high normal [facility] - Good dioxide, total mmol/L [facility]astrianism [Moles/volume] Hospital in Arterial blood Bicarbonate 35 21-28 Above high normal [facility] - Go od [Moles/volume] mmol/L [facility]rianism in Arterial Hospital blood Oxygen 91 % 94-98 Below low normal [facility] - Good saturation in [facility]oroastrianism Blood [facility] Base excess in 11.4 0-3 Above high normal [facility] - Good Arterial blood mmol/L [facility]ism by calculation Hospital Body site [facility] - Good [facility] Arterial [facility] - Good patency Wrist [facility]oroastrianism artery --pre Hospital arterial puncture Oxygen gas [facility] - Good flow Oxygen Zoroastrianism delivery [facility] system Oxygen/Inspire 40.0 % [facility] - Good d gas [facility] Respiratory Hospital system --on ventilator Ventilation [facility] - Good mode Zoroastrianism [Identifier] [facility] Ventilator PEEP 5 [facility] - Good Respiratory [facility]oroastrianism system [facility] Tidal volume 400 [facility] - Good setting [facility] Ventilator Hospital Respiratory 15 [facility] - Good rate [facility] Service 15696 [facility] - Good comment [facility] ID Date Data Source [id number] 05/03/2019 05:41:42 AM EST [facility] Name Value Range Interpretation Description Data Sup porting Code Source(s) Document(s ) Leukocytes 10.3 4.8-10.6 [facility] - [#/volume] in K/uL Good Blood by Zoroastrianism Automated count [facility] Erythrocytes 3.00 4.70-6.0 Below low normal [facility] - [#/volume] in M/uL 0 Good Blood by [facility] Hemoglobin 9.1 g/dL 14.0-18. Below low normal [facility] - [Mass/volume] in 0 Good Blood [facility] Hematocrit 29.3 % 42.0-52. Below low normal [facility] - [Volume 0 Good Fraction] of Zoroastrianism Blood by Hospital Automated count Erythrocyte mean 97.7 FL 81.0-94. Above high normal [facility] - corpuscular 0 Good volume [Entitic Zoroastrianism volume] by Hospital Automated count Erythrocyte mean 30.3 PG 27.0-35. [facility] - corpuscular 0 Good hemoglobin [facility]oroastrianism [Entitic mass] [facility] by Automated count Erythrocyte mean 31.1 30.7-37. [facility] - corpuscular g/dL 3 Good hemoglobin [facility] [Mass/volume] by Automated count Erythrocyte 17.9 % 11.5-14. Above high normal [facility] - distribution 0 Good width [Ratio] by Zoroastrianism Automated count [facility] Platelets 523 K/uL 130-400 Above high normal [facility] - [#/volume] in [facility] Blood by Zoroastrianism Automated count [facility] Platelet mean 9.8 FL 9.2-11.8 [facility] - volume [Entitic Good volume] in Blood [facility]ism by Automated Hospital count Nucleated 0.0 PER 0 [facility] - erythrocytes/100 100 WBC Good leukocytes [facility]astrianism [Ratio] in Blood [facility] Nucleated 0.00 0.0-0.01 [facility] - erythrocytes K/uL Good [#/volume] in [facility] Segmented 88 % 48.0-72. Above high normal [facility] - neutrophils/100 0 Good leukocytes in [facility] Lymphocytes/100 8 % 18.0-40. Below low normal [facility] - leukocytes in 0 [facility] Monocytes/100 3 % 2.0-12.0 [facility] - leukocytes in [facility] Eosinophils/100 0 % 0.0-7.0 [facility] - leukocytes in [facility] Basophils/100 0 % 0.0-3.0 [facility] - leukocytes in [facility] Immature 0 % 0-0.5 [facility] - granulocytes/100 Good leukocytes in [facility] by Hospital Automated count Segmented 9.1 K/UL 2.3-7.6 Above high normal [facility] - neutrophils Good [#/volume] in [facility] Lymphocytes 0.8 K/UL 0.9-4.2 Below low normal [facility] - [#/volume] in [facility] Monocytes 0.3 K/UL 0.1-1.7 [facility] - [#/volume] in [facility] Eosinophils 0.0 K/UL 0.0-1.0 [facility] - [#/volume] in [facility] Basophils 0.0 K/UL 0.0-0.4 [facility] - [#/volume] in [facility] Immature 0.0 K/UL 0.0-0.17 [facility] - granulocytes Good [#/volume] in [facility] by Hospital Automated count Differential [facility] - cell count Good method - [facility] ID Date Data Source [id number] 05/03/2019 04:55:45 AM EST [facility] Name Value Range Interpretation Description Data Sup porting Code Source(s) Document(s ) Phosphate 3.2 mg/dL 2.5-4.9 [facility] - Good [Mass/volume] Zoroastrianism in Serum or Hospital Plasma ID Date Data Source [id number] 05/03/2019 04:55:45 AM EST [facility] Name Value Range Interpretation Description Data Sup porting Code Source(s) Document(s ) Sodium 147 136-145 Above high [facility] - [Moles/volume] in mmol/L normal [facility] Serum or Plasma [facility] Potassium 3.8 3.5-5.1 [facility] - [Moles/volume] in mmol/L [facility] Serum or [facility] Chloride 109 98-107 Above high [facility] - [Moles/volume] in mmol/L normal [facility] Serum or [facility] Carbon dioxide, 34 21-32 Above high [facility] - total mmol/L normal [facility] [Moles/volume] in [facility]rianism Serum or Plasma Hospital Anion gap in Serum 8 10-20 Below low normal [facility] - or Plasma mmol/L [facility] Glucose 116 74-106 Above high [facility] - [Mass/volume] in mg/dL normal [facility] Serum or Plasma [facility] Urea nitrogen 42 7-18 Above high [facility] - [Mass/volume] in mg/dL normal [facility] or [facility] Creatinine 1.99 0.70-1. Above high [facility] - [Mass/volume] in mg/dL 30 normal Good Serum or Plasma [facility] Glomerular 43 >60 Below low normal [facility] - filtration ml/min/ Good rate/1.73 sq M 1.73m2 [facility]astrianism predicted among Hospital blacks [Volume Rate/Area] in Serum or Plasma by Creatinine-based formula (MDRD) Glomerular 36 >60 Below low normal [facility] - filtration ml/min/ Good rate/1.73 sq M 1.73m2 Zoroastrianism predicted among Hospital non-blacks [Volume Rate/Area] in Serum or Plasma by Creatinine-based formula (MDRD) Calcium 10.1 8.5-10. [facility] - [Mass/volume] in mg/dL 1 [facility] Serum or Plasma [facility] Hospital Bilirubin.total 0.6 0.2-1.0 [facility] - [Mass/volume] in mg/dL Good Serum or Plasma [facility] Alanine 13 U/L 13-61 [facility] - aminotransferase Good [Enzymatic Zoroastrianism activity/volume] in Hospital Serum or Plasma Aspartate 16 U/L 15-37 [facility] - aminotransferase Good [Enzymatic Zoroastrianism activity/volume] in Hospital Serum or Plasma by With P-5'-P Alkaline 64 U/L 45-117 [facility] - phosphatase Good [Enzymatic Zoroastrianism activity/volume] in Hospital Serum or Plasma Protein 6.6 6.4-8.2 [facility] - [Mass/volume] in g/dL Good Serum or Plasma [facility] Albumin 2.2 3.5-4.7 Below low normal [facility] - [Mass/volume] in g/dL Good Serum or Plasma by [facility]rianism Bromocresol [facility] (BCP) dye binding method Globulin 4.4 1.7-4.7 [facility] - [Mass/volume] in g/dL Good Serum by [facility] Albumin/Globulin 0.5 0.7-2.8 Below low normal [facility] - [Mass Ratio] in Good Serum or Plasma [facility] ID Date Data Source [id number] 05/03/2019 04:55:45 AM [facility] Name Value Range Interpretation Description Data Sup porting Code Source(s) Document(s ) Magnesium 2.4 mg/dL 1.6-2.6 [facility] - Good [Mass/volume] Zoroastrianism in Serum or Hospital Plasma ID Date Data Source [id number] 05/03/2019 01:26:07 AM [facility] Pt intermittenly tachypneic w/ respirati ons 30s and 40s, O2 sat remains > 95%.Dr. Dov nevarez via service, made aware. Or ders received to put pt back onventilator, no changes to vent settings at this time. R T made aware. Willcontinue to monitor. Name Value Range Interpretation Code Description Data Harriett rce(s) Supporting Document(s ) ID Date Data Source [id number] 05/02/2019 07:36:12 PM [facility] Bedside and Verbal shift change report carol pham to Anne Ha (oncoming nurse) Samia Greer (offgoing nurse). Repor t included the following information SBAR,Intake/Output, MAR, Recent Results and Cardiac Rhythm NSR.. Name Value Range Interpretation Code Description Data Harriett rce(s) Supporting Document(s ) ID Date Data Source [id number] 05/02/2019 03:06:37 PM [facility] Progress NoteEmanuel Czslworml18 y.o.Adm it Date: 04/19/2019Active Problems: Pneumonia (11/08/2018) [...] 065 9 05/02/19 0700 - 05/03/19 0659Shift 5944-3757 3978-9777 24 Hour Total 0700-1 859 2518-2782 24 Hour TotalINTAKEI.V.(mL/kg/hr) 550(0.8) 350(0 .5) 900(0.7) [...] Loss 0 0Shift Total(mL/kg) 1175(19.7) 850(15.5) 2025(36.8)NET -946 -283 -7554 50 50Weight (kg) 59.6 55 55 55 [...] injection 40 mg 40 mg Int raVENous [id number] gonzales MD 40 mg at 05/02/19 0849 bacitracin 500 unit/gr am packet 1 Packet 1 Packet Topical TID Kareen Mills MD 1 Packet at 0837 vancomycin 50 mg/mL oral solution (compounded) 125 mg 125 mg Per G Tube U2MJfcmqyvfxKareen gonzales MD 125 mg at 05/02/19 1257 [...] injection 5,000 Units 5,000 Units SubCU TAneous Q47NFhbmztzmpKareen gonzales MD 5,000 Units at 05/02/19 0536Physical [...] 0.0 - 0.17 K/UL DF AUTOMATEDMETABOLIC PANEL, [facility] VE Collection Time: 05/02/19 4:30 AMResult Value [...] volume 400 RAT E 15 Performed by [id number]:Xr Chest Sngl VResult Date: 05/02/2019Portable chest x- [...] Supporting Document(s ) ID Date Data Source [id number] 05/02/2019 01:26:41 PM EST [facility] Pt placed on trach collar 40%/ vital sig ns stable Name Value Range Interpretation Code Description Data [facility] rce(s) Supporting Document(s ) ID Date Data Source [id number] 05/02/2019 01:18:44 PM EST [facility] Progress NoteMID-SC[facility] ,[facility].Krystian Monae MD., F.C.C.PHeidi Hamilton MD., F.C.CGualbertoP. [address] [place] [address] [place], [place] [id number] [phone]: Evelio Carlin Sex: male DOA: [...] 24 hrs: BP Temp Pulse Resp SpO2 Dtobrd57/18/20 1200 119/63 99.3 F (37.4 C) 91 [...] volume 400 RAT E 15 Performed by [id number]:Recent Labs 05/02/200450 05/01/200501PH 7.51* 7.50*P CO2 47 48PO2 74* 71*HCO3 38* 37*FIO2 40.0 --Recent Glucose Results:Lab ResultsComp onent Value Date/Time GLU 80 05/02/2019 04:30 [email or web address] Results Procedure Component Value Units Date/Time CULTURE, BLOOD [[id number]] Col lected: 04/25/19 1210 Order Status: Completed Specimen: Blood Updated: 1352 Special Requests: NO SPECIAL REQUESTS Culture result: NO GROWTH 5 DA YS CULTURE, BLOOD [[id number]] Collected: 04/25/19 1205 Order Status: Completed S pecimen: Blood Updated: 04/30/19 1352 Special Requests: NO SPECIAL REQUESTS C ulture result: NO GROWTH 5 DAYS CULTURE, RESPIRATORY/SPUTUM/BRONCH W GRAM STAIN [ [id number]] (Abnormal)(Susceptibility) Collected: 04/26/19 1700 Order Status: Completed Specimen: Sputum from Tracheal Aspirate Updated:04/29/19 1051 Special Requests: NO SPECIAL REQUESTS GRAM STAIN 10-25 WBC/lpf <10 EPI/lpf FEW GRAM P OSITIVE RODS Culture result: MODERATE PSEUDOMONAS AERUGINOSA C. DIFFICILE (DNA ) [[id number]] Collected: 04/27/19 0915 Order Status: Completed Specimen: Stool Upda mikel: 04/27/19 1246 C. difficile (DNA) NEGATIVE Comment: This specimen is nega tive for toxigenic C difficile by DNAamplification. Repeat testing is not recommended for confirmation, samplesreceived within 7 days of this ne gative result will be rejected. C. DIFFICILE (DNA) [[id number]] (Abnormal) Collected: 04/25/19 1715 Order Status: Completed Specimen: Stool Updated: 04/26/19 1551 C. difficile (DNA) TEST RESULT IS INCONCLUSIVE. PLEASE SUBMIT A NEW SPECIM EN FOR ANALYSIS. CULTURE, URINE [[id number]] Collected: 04/25/19 1147 Order Status: Completed Specimen: Urine from Clean catch Updated: Special Requests : NO SPECIAL REQUESTS Culture result: NO GROWTH 1 DAY C. DIFFICILE (DNA) [[id number]] Order Status: Sent Specimen: Stool CULTURE, BLOOD [[id number]] Collected: 0 04/20/19 1440 Order Status: Completed Specimen: Blood Updated: 04/26/19 0818 Special Requests: NO SPECIAL REQUESTS Culture result: NO GROWTH 6 DAYS CULTURE , BLOOD [[id number]] Collected: 04/20/19 1447 Order Status: Completed Specimen: Bloo d Updated: 04/26/19 0818 Special Requests: NO SPECIAL REQUESTS Culture result: NO GROWTH 6 DAYS CULTURE, BLOOD [[id number]] (Abnormal) Collected: 04/19/19 1005 Ord er Status: Completed Specimen: Blood Updated: 04/22/19 0731 Special Request s: NO SPECIAL REQUESTS GRAM STAIN GRAM POSITIVE COCCI IN CLUSTERS ANAEROBIC BOT TLE CALLED TO AND READ BACK BY ROB LEDEZMARN, ED, 0953 ON 04/20/19 TORISM IRAGLIA Culture result: STAPHYLOCOCCUS EPIDERMIDIS : Refer to previous culture( s) for susceptibilityresults CULTURE, BLOOD [[id number]] (Abnormal) (Susceptibility ) Collected: Order Status: Completed [...] Date: 04/29/2019History: J-tube placement. FIND INGS: A translator and interpreter film of the abdomen reveals a tubeoverlying [...] Patient Name: EVELIO CARLIN FINAL REPORTFROM IMAGING RESIDENTIAL SALES REPRESENTATIVE EXAM: C T chest without contrast and [...] 04/20/2019 22:43 GINA Jenkins.Please call Katja robert [employer] Structure Operator [phone]) with questions. This reportwas electronically signed by: [...] are identified that would besuspicious for, or vaccine customer representative of DVT.IMPRESSION : 1. No sonographic findings suggestive of thrombosis within thevisualized portions of the deep venous system of the left upper extremity.Duplex Upper Ext Venous RightR esult Date: 04/26/2019RIGHT UPPER EXTREMITY DOPPLER HISTORY: Pain and swelling. High -resolution linearsonography of the right upper extremity was performed using [place] r Doppler Flowand Duplex Doppler Spectral sonography. [...] (porcine) injection 5,000 Units 5,000 Units SubCUTAneous [id number] Problems: Pneum onia (11/08/2018) Acute hypoxemic respiratory failure (HCC) (03/25/2019) COPD with ac [place] exacerbation (HCC) (04/19/2019) Acute on chronic respiratory [...] CONT CHEST P T Krystian Monae MD F.C.C.PGualbertoSouth Baldwin Regional Medical Center 20191:07 PM Name Value Range Interpretation Code Description Data Harriett rce(s) Supporting Document(s ) ID Date Data Source [id number] 05/02/2019 08:57:55 AM EST [facility] Portable chest x-ray.PRIOR EXAM: X-ray HISTORY: [...] Supporting Document(s ) ID Date Data Source [id number] 05/02/2019 08:49:04 AM EST [facility] ID Progress Note05/02/2019Subjective:Even ts notedAfebrileBlood cx remain negativeResp cx with pseudomonasS/p tracheostomy and jejunostomy tube placement.On vent support.Wbc elevated to 16,100Objective: Review of SystemsPatient is unable to provideVitals:Patient Vitals for the pas t 24 hrs: BP Temp Pulse Resp SpO2 Nacalm13/18/20 0800 (!) 126/94 99.3 F ( 37.4 [...] (porcine) injection 5,000 Units 5,000 Units SubCUTAneous O86DPbjg:Recent Labs 05/01/2007WBC 16.1* 11.9* 13.0*HGB 9.4* 10.2* [...] Supporting Document(s ) ID Date Data Source [id number] 05/02/2019 07:19:49 AM EST [facility] Bedside and Verbal shift change report carol pham to Mayi Greer RN (oncomingnurse) by Anne Ha (offgoing nurse). Report included the following information SBAR,Intake/Output, MAR, Recent Results and Cardiac Rhythm Sinus Tach. Name Value Range Interpretation Code Description Data Harriett rce(s) Supporting Document(s ) ID Date Data Source [id number] 05/02/2019 05:53:09 AM EST [facility] Name Value Range Interpretation Description Data Sup porting Code Source(s) Document(s ) pH of Arterial 7.51 7.35-7.4 Above high normal [facility] - Good blood 5 [facility] Carbon dioxide 47 mmHg 32-48 [facility] - Good [Partial Zoroastrianism pressure] in Hospital Arterial blood Oxygen 74 mmHg 83-108 Below low normal [facility] - Good [Partial Zoroastrianism pressure] in Hospital Arterial blood Carbon 39 19-24 Above high normal [facility] - Good dioxide, total mmol/L [facility]ism [Moles/volume] Hospital in Arterial blood Bicarbonate 38 21-28 Above high normal [facility] - Go od [Moles/volume] mmol/L [facility] in Arterial Hospital blood Oxygen 97 % 94-98 [facility] - Good saturation in [facility]rianism Blood [facility] Base excess in 12.7 0-3 Above high normal [facility] - Good Arterial blood mmol/L [facility] by calculation Hospital Body site [facility] - Good [facility] Arterial [facility] - Good patency Wrist [facility]oroastrianism artery --pre Hospital arterial puncture Oxygen gas [facility] - Good flow Oxygen [facility] Hospital system Oxygen/Inspire 40.0 % [facility] - Good d gas [facility] Respiratory Hospital system --on ventilator Ventilation [facility] - Good mode [facility]ism [Identifier] Hospital Ventilator PEEP 5 [facility] - Good Respiratory [facility] system Hospital Tidal volume 400 [facility] - Good setting [facility] Hospital Respiratory 15 [facility] - Good rate [facility] Service [address] [facility] - Good comment [facility] ID Date Data Source [id number] 05/02/2019 05:38:09 AM EST [facility] Good [facility] Name Value Range Interpretation Description Data Sup porting Code Source(s) Document(s ) Leukocytes 16.1 4.8-10.6 Above high normal [facility] - [#/volume] in K/uL Good Blood by [facility]rianism Automated count [facility] Erythrocytes 3.08 4.70-6.0 Below low normal [facility] - [#/volume] in M/uL 0 Good Blood by [facility] Automated count Hospital Hemoglobin 9.4 g/dL 14.0-18. Below low normal [facility] - [Mass/volume] in 0 Good Blood [facility] Hematocrit 30.1 % 42.0-52. Below low normal [facility] - [Volume 0 Good Fraction] of Zoroastrianism Blood by Hospital Automated count Erythrocyte mean 97.7 FL 81.0-94. Above high normal [facility] - corpuscular 0 Good volume [Entitic Zoroastrianism volume] by Hospital Automated count Erythrocyte mean 30.5 PG 27.0-35. [facility] - corpuscular 0 Good hemoglobin [facility]rianism [Entitic mass] Hospital by Automated count Erythrocyte mean 31.2 30.7-37. [facility] - corpuscular g/dL 3 Good hemoglobin [facility] Hospital [Mass/volume] by Automated count Erythrocyte 17.9 % 11.5-14. Above high normal [facility] - distribution 0 Good width [Ratio] by Zoroastrianism Automated count Hospital Platelets 551 K/uL 130-400 Above high normal [facility] - [#/volume] in Good Blood by [facility] Automated count Hospital Platelet mean 9.5 FL 9.2-11.8 [facility] - volume [Entitic Good volume] in Blood [facility] by Automated Hospital count Nucleated 0.0 PER 0 [facility] - erythrocytes/100 100 WBC Good leukocytes [facility]astrianism [Ratio] in Blood Hospital Nucleated 0.00 0.0-0.01 [facility] - erythrocytes K/uL Good [#/volume] in [facility] Segmented 89 % 48.0-72. Above high normal [facility] - neutrophils/100 [address] [facility] Lymphocytes/100 7 % 18.0-40. Below low normal [facility] - leukocytes in 0 [facility] Blood [facility] Monocytes/100 3 % 2.0-12.0 [facility] - leukocytes in [facility] Blood [facility] Eosinophils/100 0 % 0.0-7.0 [facility] - leukocytes in [facility] Blood [facility] Basophils/100 0 % 0.0-3.0 [facility] - leukocytes in [facility] Blood [facility] Immature 1 % 0-0.5 Above high normal [facility] - granulocytes/100 Good leukocytes in [facility] Blood by Hospital Automated count Segmented 14.4 2.3-7.6 Above high normal [facility] - neutrophils K/UL Good [#/volume] in [facility] Lymphocytes 1.2 K/UL 0.9-4.2 [facility] - [#/volume] in [facility] Monocytes 0.4 K/UL 0.1-1.7 [facility] - [#/volume] in [facility] Eosinophils 0.0 K/UL 0.0-1.0 [facility] - [#/volume] in [facility] Basophils 0.0 K/UL 0.0-0.4 [facility] - [#/volume] in [facility] Immature 0.1 K/UL 0.0-0.17 [facility] - granulocytes Good [#/volume] in [facility] by [facility] Automated count Differential [facility] - cell count Good method [facility] ID Date Data Source [id number] 05/02/2019 05:23:26 AM EST [facility] Name Value Range Interpretation Description Data Sup porting Code Source(s) Document(s ) Sodium 146 136-145 Above high [facility] - [Moles/volume] in mmol/L normal [facility] or [facility] Potassium 4.0 3.5-5.1 [facility] - [Moles/volume] in mmol/L [facility] Chloride 109 98-107 Above high [facility] - [Moles/volume] in mmol/L normal [facility] or [facility] Carbon dioxide, 35 21-32 Above high [facility] - total mmol/L normal [facility] [Moles/volume] in [facility] Serum or [facility] Anion gap in Serum 6 10-20 Below low normal [facility] - or Plasma mmol/L [facility] Glucose 80 74-106 [facility] - [Mass/volume] in mg/dL [facility] or [facility] Urea nitrogen 43 7-18 Above high [facility] - [Mass/volume] in mg/dL normal [facility] Creatinine 1.79 0.70-1. Above high [facility] - [Mass/volume] in mg/dL 30 normal [facility] or [facility] Glomerular 49 >60 Below low normal [facility] - filtration ml/min/ Good rate/1.73 sq M 1.73m2 [facility] predicted among Hospital blacks [Volume Rate/Area] in Serum or Plasma by Creatinine-based formula (MDRD) Glomerular 40 >60 Below low normal [facility] - filtration ml/min/ Good rate/1.73 sq M 1.73m2 [facility] predicted among Hospital non-blacks [Volume Rate/Area] in Serum or Plasma by Creatinine-based formula (MDRD) Calcium 9.8 8.5-10. [facility] - [Mass/volume] in mg/dL 1 Good Serum or Plasma [facility] Bilirubin.total 0.7 0.2-1.0 [facility] - [Mass/volume] in mg/dL Good Serum or Plasma [facility] Alanine 11 U/L 13-61 Below low normal [facility] - aminotransferase Good [Enzymatic [facility]ism activity/volume] in Hospital Serum or Plasma Aspartate 14 U/L 15-37 Below low normal [facility] - aminotransferase Good [Enzymatic [facility] activity/volume] in Hospital Serum or Plasma by With P-5'-P Alkaline 62 U/L 45-117 [facility] - phosphatase Good [Enzymatic [facility]ism activity/volume] in Hospital Serum or Plasma Protein 6.0 6.4-8.2 Below low normal [facility] - [Mass/volume] in g/dL Good Serum or Plasma [facility] Albumin 2.0 3.5-4.7 Below low normal [facility] - [Mass/volume] in g/dL Good Serum or Plasma by [facility] Bromocresol [facility] (BCP) dye binding method Globulin 4.0 1.7-4.7 [facility] - [Mass/volume] in g/dL Good Serum by [facility] Albumin/Globulin 0.5 0.7-2.8 Below low normal [facility] - [Mass Ratio] in Good Serum or Plasma [facility] ID Date Data Source [id number] 05/02/2019 05:23:26 AM EST [facility] - Good [facility] Name Value Range Interpretation Description Data Sup porting Code Source(s) Document(s ) Phosphate 3.3 mg/dL 2.5-4.9 [facility] - Good [Mass/volume] [facility] in Serum or Hospital Plasma ID Date Data Source [id number] 05/02/2019 05:23:26 AM EST [facility] Name Value Range Interpretation Description Data Sup porting Code Source(s) Document(s ) Magnesium 2.2 mg/dL 1.6-2.6 [facility] [Mass/volume] [facility] in Serum or Hospital Plasma ID Date Data Source [id number] 05/02/2019 03:22:34 AM EST [facility] Problem: Falls - Risk ofGoal: *Absence [...] Name Value Range Interpretation Code Description Data [facility] rce(s) Supporting Document(s ) ID Date Data Source [id number] 05/01/2019 07:48:49 PM [facility] Bedside and Verbal shift change report carol Calvillo (oncoming nurse) by Anurag (offgoing nurse). Report included the fo llowing information SBAR, MAR,Recent Results and Cardiac Rhythm NSR.. Name Value Range Interpretation Code Description [facility] Document(s ) ID Date Data Source [id number] 05/01/2019 07:15:07 PM [facility] Reviewed Ventilator Settings with onc edgardoing RT Grace Santana, Settings, Weaning , Transports. Ventilator wiped d own with bleachwipes.Hoa Sanders, BIAS MACHINE OPERATOR, RT, NM, ARRT Name Value Range Interpretation Code Description Data [facility] Supporting Document(s ) ID Date Data Source [id number] 05/01/2019 06:30:49 PM [facility] Received pt from OR post trache and jeju nostomy placement,responsive to pain,#8shiley to vent,settings ZG=963 RR=15 PEEP5 40%, abdomen soft ,binder present,redtube/JT clamped,GT to gravity bag per Dr Major rodriguez,kept NPO till tomm.ChestXray ordered. Name Value Range Interpretation Code Description Data [facility] Supporting Document(s ) ID Date Data Source [id number] 05/01/2019 05:01:12 PM [facility] Critical Care Progress N [facility]Krystian Monae MD., F.C.C.P.Stella Hamilton MD., F.C.C.P. [address] [place] [address] [place] [address] Name: Evelio JohnsoninDOB: 1950MRN: [id number]: 05/01/2019Subjective:Mr. [...] 24 hrs: BP Temp Pulse Resp SpO2 Vcodcl35/17/20 1600 (!) 171/91 97.2 F ( 36.2 [...] H2O): 8PEEP/VENT (cm H2 O): 5 cm Q13Rrks PEEP Observed (cm H2O): 2.3 cm I1BHbzn Rate Tidal Volume Pressure Fi O2 PEEPPRVC 400 ml 10 cm H2O 40 % 5 cm N04Puwq airway pressure: 18 cm V8OOnezqa ventilation: 6 l/minARDS network Guidelines: Lung protective [...] injection 5,000 Units 5,000 U nits SubCUTAneous E86LCudqcczla: [x]Sinus []A-flutter []Paced []A-fib []Multiple P VC'sLabs:Recent [...] Component Value Units Date/Time CULTURE, BLOOD [[id number]] Collected: 04/25/19 1210 Order Status: Completed Specimen: Blood Upda mikel: 04/30/19 1352 Special Requests: NO SPECIAL REQUESTS Culture result: NO HAIDER WTH 5 DAYS CULTURE, BLOOD [[id number]] Collected: 04/25/19 1205 Order Status: Completed Specimen: Blood Updated: 04/30/19 1352 Special Requests: NO SPEC IAL REQUESTS Culture result: NO GROWTH 5 DAYS CULTURE, RESPIRATORY/SPUTUM/BRONCH W GRAM STAIN [[id number]] (Abnormal)(Susceptibility) Collected: 0 04/26/19 1700 Order Status: Completed Specimen: Sputum from Tracheal Aspirate Updated:04/29/19 1051 Special Requests: NO SPECIAL REQUESTS GRAM STAIN 10-25 WBC/l pf <10 EPI/lpf FEW GRAM POSITIVE RODS Culture result: MODERATE PSEUDOMONAS AE RUGINOSA C. DIFFICILE (DNA) [[id number]] Collected: 04/27/19 0915 Order Status: Completed Specimen: Stool Updated: 04/27/19 1246 C. difficile (DNA) NEGATI VE Comment: This specimen is negative for toxigenic C difficile by DNAamplificatio n. Repeat testing is not recommended for confirmation, samplesreceived within 7 d ays of this negative result will be rejected. C. DIFFICILE (DNA) [[id number]] (Abnorma l) Collected: 04/25/19 1715 Order Status: Completed Specimen: Stool Updated: 04/03 1551 C. difficile (DNA) TEST RESULT IS INCONCLUSIVE. PLEASE SUBMIT A NEW SPE CIMEN FOR ANALYSIS. CULTURE, URINE [[id number]] Collected: 04/25/19 1147 Or bassem Status: Completed Specimen: Urine from Clean catch Updated: Spec ial Requests: NO SPECIAL REQUESTS Culture result: NO GROWTH 1 DAY C. DIFFICILE (DN A) [[id number]] Order Status: Sent Specimen: Stool CULTURE, BLOOD [[id number]] Collect ed: 04/20/19 1440 Order Status: Completed Specimen: Blood Updated: 04/26/19 0818 Special Requests: NO SPECIAL REQUESTS Culture result: NO GROWTH 6 DAYS CULTURE , BLOOD [[id number]] Collected: 04/20/19 1447 Order Status: Completed Specimen: Bloo d Updated: 04/26/19 0818 Special Requests: NO SPECIAL REQUESTS Culture result: NO GROWTH 6 DAYS CULTURE, BLOOD [[id number]] (Abnormal) Collected: 04/19/19 1005 Ord er Status: Completed Specimen: Blood Updated: 04/22/19 0731 Special Request s: NO SPECIAL REQUESTS GRAM STAIN GRAM POSITIVE COCCI IN CLUSTERS ANAEROBIC BOT TLE CALLED TO AND READ BACK BY ROB LEDEZMARN, ED, 0953 ON 04/20/19 TORMAIN IRAGLTHUY Culture result: STAPHYLOCOCCUS EPIDERMIDIS : Refer to previous culture( s) for susceptibilityresults CULTURE, BLOOD [[id number]] (Abnormal) (Susceptibility ) Collected: Order Status: Completed [...] MD04/20/2019 22:43 GINA Jenkins. Please call Imaging Canal Structure Operator [phone] ([phone]) withquestions.T his report was electronically signed by:Marcie Edge MD 04/20/2019 10:44 PMImages:[email or web address] TEXTThis SmartLink requires a parameter for processing. Parameters are variableswhich can be added to the original SmartLink name. This allows you to reque stspecific information by giving the SmartLink precise direction.[facility] Smart[facility] accepts (as a parameter) an [...] the procedure or anatomicalre gions you entered.Example: .BSHSILASTIMGCAT[[id number]:3This example wo uld display results for the last three orders with an externalprocedure ID of [id number] he patient is: [] acutely ill Risk [...] Name Value Range Interpretation Code Description Data [facility] rce(s) Supporting Document(s ) ID Date Data Source [id number] 05/01/2019 04:51:02 PM [facility] AP portable film of the chest [...] Name Value Range Interpretation Code Description Data [facility] Supporting Document(s ) ID Date Data Source [id number] 05/01/2019 03:45:37 PM [facility] sent referral for patient to [facility] at [phone]; /45And also sent to [facility] [place] at [phone]; . Name Value Range Interpretation Code Description Data [facility] Supporting Document(s ) ID Date Data Source [id number] 05/01/2019 03:08:27 PM [facility] At 1500, patient brought [facility] to the [facility] t per bed, stable as per CHRISTOPHER Menendez, endorsed to NANCY Greer using SBAR, late st V/S: 154/86mmhg, 98 O2sat, 86HR and 37temp. Name Value Range Interpretation Code Description Data [facility] rce(s) Supporting Document(s ) ID Date Data Source [id number] 05/01/2019 02:59:46 PM [facility] OPERATIVE NOTEPatient: Evelio Carlin Sex: maleDate of [...] lants:Implant Name Type Inv. Item Serial No. Construction Foreman Lot No. LRB No. Used Action TUBE TRACH CUFFED #08 CANNULA - [id number] TUBE TRACH CUFFED #08 CANNULACOVIDIEN RE SPIRATORY & MONITOR [id number] N/A 1 ImplantedIndications:This is a 68 y.o. [...] identified. No bleedingwas iden tified.After communicating with box tender, transverse incision w as made ontrachea between [...] Name Value Range Interpretation Code Description Data [facility] rce(s) Supporting Document(s ) ID Date Data Source [id number] 05/01/2019 02:39:49 PM [facility] Pt is in OR for new Trach and new J tube . From Only and cannot return.CINDER MAN working on placing in a vent facility. N ot a weekend discharge. NATALIIA elias. Name Value Range Interpretation Code Description Data [facility] Supporting Document(s ) ID Date Data Source [id number] 05/01/2019 12:49:42 PM [facility] Brought pt down to the OR holding area,carol campbell report to the OR Nurse,familypresent waiting to speak to Dr Betancourt. Name Value Range Interpretation Code Description Data [facility] Supporting Document(s ) ID Date Data Source [id number] 05/01/2019 12:08:02 PM [facility] Patient seen at bedside along with his n claudette and family member.He appears comfortable. On nasal cannula.No distres s.He is on schedule for Ex-lap, Jejunostomy placement and tracheostomyDiscussed Risk , benefits and alternatives with Patients HCP - Don Respler.He agreed with procedure a nd signed consent. Name Value Range Interpretation Code Description Data [facility] Supporting Document(s ) ID Date Data Source [id number] 05/01/2019 11:58:48 AM [facility] NUTRITIONINTERDISCIPLINARY ROUNDS NOTEPa tient discussed during interdisciplinary [...] Name Value Range Interpretation Code Description Data [facility] rce(s) Supporting Document(s ) ID Date Data Source [id number] 05/01/2019 11:58:42 AM [facility] Problem: Nutrition DeficitGoal: *Optimiz e nutritional statusDescriptionPt meeting 80% nutrient needs within 3-7 daysOutcome: P rogressing Towards GoalSuggest goal of Osmolite 1.5@45mL/hr with 30mL prostat t id. Add 100mL free H2OQ 3hr if feasible given edema and need for lasix. Name Value Range Interpretation Code Description Data [facility] Supporting Document(s ) ID Date Data Source [id number] 05/01/2019 11:24:55 AM [facility] Pt is scheduled for trache and JT revisi on this afternoon,kept NPO,informedconsent from pts brother for anesthisia done. Name Value Range Interpretation Code Description Data [facility] Supporting Document(s ) ID Date Data Source [id number] 05/01/2019 09:37:26 AM [facility] Progress NoteEmanuel Hijodrclm20 y.o.Adm it Date: 04/19/2019Active Problems: Pneumonia (11/08/2018) [...] 0659 05/01/19 0 700 - 05/02/19 0659Shift 5656-5419 9017-7753 24 Hour Total 5376-1129 7817-0536 24 Tammy r TotalINTAKEI.V.(mL/kg/hr) 50(0.1) 50(0.1) 100(0.1) [...] nagement) 75 75Shift Total(mL/kg) 1175(19.2) 1000(16.8) 2175(36.5)NET -929 -399 -4896 Weight (kg) 61.1 59.6 59.6 59.6 59.6 59.6Medications Reviewed:Current Facilit y-Administered MedicationsMedication Dose Route Frequency Provider Last Rate Last Dose vits A and D-white pet-lanolin (A&D) ointment Topical PRN [place] D O furosemide (LASIX) injection 20 mg 20 mg IntraVENous BID Oralia Frankel MD20 mg a t 05/01/19 0638 methylPREDNISolone (PF) (SOLU-MEDROL) injection 40 mg 40 mg Int raVENous T63STccmVan tam MD 40 mg at 04/30/19 2142 bacitracin 500 unit/gram packet 1 Packet 1 Packet Topical TID Krystian Monae MD 1 Packet at 04/30/19 2141 va ncomycin 50 mg/mL oral solution (compounded) 125 mg 125 mg Per G Tube U6NXiagciNoa severino MD 125 mg at 05/01/19 0600 [...] mL oral suspension 30 mL 30mL Oral KLYEIGH Y PRN Krystian Monae MD albuterol-ipratropium (DUO-NEB) [...] Supporting Document(s ) ID Date Data Source [id number] 05/01/2019 08:51:46 AM EST [facility] ID Progress Note05/01/2019Subjective:Even ts notedPatient is scheduled for tracheostomy and jejunostomy placement.C. Diff test w as NEGATIVEEEG did not show any seizureAfebrileBlood cx remain negativeR david cx with pseudomonasObjective:Review of SystemsPatient is unable to provideVital s:Patient Vitals for the past 24 hrs: BP Temp Pulse Resp SpO2 Fyouad13/17/20 0800 151/ 86 97.8 F (36.6 C) [...] (porcine) injection 5,000 Units 5,000 Units SubCUTAneous T48AUdga:Recent Labs 04/29/2005WBC 13.0* 12.8* --HGB 9.6* 9.7* [...] vancomycin prophylaxis dose3. Follow blood cxFoluke Nayan [facility] 201[facility]:45 AM Name Value Range Interpretation Code Description Data [facility](s) Supporting Document(s ) ID Date Data Source [id number] 05/01/2019 08:26:23 AM EST [facility] AP portable film of the chest [...] Supporting Document(s ) ID Date Data Source [id number] 05/01/2019 08:10:51 AM EST [facility] Relevant ProblemsNo relevant active prob lemsAnesthetic [...] Supporting Document(s ) ID Date Data Source [id number] 05/01/2019 09:04:15 AM EST [facility] Name Value Range Interpretation Description Data Sup porting Code Source(s) Document(s ) Sodium 145 136-145 [facility] - [Moles/volume] in mmol/L [facility] Serum or [facility] Potassium 3.6 3.5-5.1 [facility] - [Moles/volume] in mmol/L [facility] Serum or [facility] Chloride 107 98-107 [facility] - [Moles/volume] in mmol/L [facility] Serum or [facility] Carbon dioxide, 35 21-32 Above high [facility] - total mmol/L normal [facility] [Moles/volume] in [facility] Serum or [facility] Anion gap in Serum 7 10-20 Below low normal [facility] - or Plasma mmol/L [facility] Glucose 89 74-106 [facility] - [Mass/volume] in mg/dL [facility] or [facility] Urea nitrogen 44 7-18 Above high [facility] - [Mass/volume] in mg/dL normal [facility] Serum or [facility] Creatinine 1.93 0.70-1. Above high [facility] - [Mass/volume] in mg/dL 30 normal [facility] Serum or [facility] Glomerular 45 >60 Below low normal [facility] - filtration ml/min/ Good rate/1.73 sq M 1.73m2 [facility] predicted among Hospital blacks [Volume Rate/Area] in Serum or Plasma by Creatinine-based formula (MDRD) Glomerular 37 >60 Below low normal [facility] - filtration ml/min/ Good rate/1.73 sq M 1.73m2 [facility] predicted among Hospital non-blacks [Volume Rate/Area] in Serum or Plasma by Creatinine-based formula (MDRD) Calcium 10.0 8.5-10. [facility] - [Mass/volume] in mg/dL 1 Good Serum or Plasma [facility] Bilirubin.total 0.4 0.2-1.0 [facility] - [Mass/volume] in mg/dL Good Serum or Plasma [facility] Alanine 12 U/L 13-61 Below low normal [facility] - aminotransferase Good [Enzymatic [facility]ism activity/volume] in Hospital Serum or Plasma Aspartate 15 U/L 15-37 [facility] - aminotransferase Good [Enzymatic [facility] activity/volume] in Hospital Serum or Plasma by With P-5'-P Alkaline 72 U/L 45-117 [facility] - phosphatase Good [Enzymatic [facility]ism activity/volume] in Hospital Serum or Plasma Protein 6.7 6.4-8.2 [facility] - [Mass/volume] in g/dL Good Serum or Plasma [facility] Albumin 2.1 3.5-4.7 Below low normal [facility] - [Mass/volume] in g/dL Good Serum or Plasma by [facility] Bromocresol [facility] (BCP) dye binding method Globulin 4.6 1.7-4.7 [facility] - [Mass/volume] in g/dL Good Serum by [facility] Albumin/Globulin 0.5 0.7-2.8 Below low normal [facility] - [Mass Ratio] in Good Serum or Plasma [facility] ID Date Data Source [id number] 05/01/2019 09:04:15 AM EST [facility] Name Value Range Interpretation Description Data Sup porting Code Source(s) Document(s ) Magnesium 2.7 mg/dL 1.6-2.6 Above high normal [facility] - Good [Mass/volume] [facility] in Serum or Hospital Plasma ID Date Data Source [id number] 05/01/2019 09:11:14 AM EST [facility] Name Value Range Interpretation Description Data Sup porting Code Source(s) Document(s ) Leukocytes 11.9 4.8-10.6 Above high normal [facility] - [#/volume] in K/uL Good Blood by [facility] Automated count [facility] Erythrocytes 3.39 4.70-6.0 Below low normal [facility] - [#/volume] in M/uL 0 Good Blood by [facility] Automated count Hospital Hemoglobin 10.2 14.0-18. Below low normal [facility] - [Mass/volume] in g/dL 0 [facility] Blood [facility] Hematocrit 32.9 % 42.0-52. Below low normal [facility] - [Volume 0 Good Fraction] of [facility] Blood by Hospital Automated count Erythrocyte mean 97.1 FL 81.0-94. Above high normal [facility] - corpuscular 0 Good volume [Entitic [facility] volume] by Hospital Automated count Erythrocyte mean 30.1 PG 27.0-35. [facility] - corpuscular 0 Good hemoglobin [facility] [Entitic mass] Hospital by Automated count Erythrocyte mean 31.0 30.7-37. [facility] - corpuscular g/dL 3 Good hemoglobin [facility] concentration [facility] [Mass/volume] by Automated count Erythrocyte 17.5 % 11.5-14. Above high normal [facility] - distribution 0 Good width [Ratio] by [facility] Automated count Hospital Platelets 577 K/uL 130-400 Above high normal [facility] - [#/volume] in Good Blood by [facility] Automated count Hospital Platelet mean 9.3 FL 9.2-11.8 [facility] - volume [Entitic Good volume] in Blood [facility] by Automated Hospital count Nucleated 0.0 PER 0 [facility] - erythrocytes/100 100 WBC Good leukocytes [facility] [Ratio] in Blood Hospital Nucleated 0.00 0.0-0.01 [facility] - erythrocytes K/uL Good [#/volume] in [facility] Segmented 82 % 48.0-72. Above high normal [facility] - neutrophils/100 [address] [facility] Lymphocytes/100 14 % 18.0-40. Below low normal [facility] - leukocytes in 0 [facility] Blood [facility] Monocytes/100 4 % 2.0-12.0 [facility] - leukocytes in [facility] Blood [facility] Eosinophils/100 0 % 0.0-7.0 [facility] - leukocytes in [facility] Blood [facility] Basophils/100 0 % 0.0-3.0 [facility] - leukocytes in [facility] Blood [facility] Immature 1 % 0-0.5 Above high normal [facility] - granulocytes/100 Good leukocytes in [facility] Blood by Hospital Automated count Segmented 9.7 K/UL 2.3-7.6 Above high normal [facility] - neutrophils Good [#/volume] in [facility] Lymphocytes 1.6 K/UL 0.9-4.2 [facility] - [#/volume] in [facility] Monocytes 0.5 K/UL 0.1-1.7 [facility] - [#/volume] in [facility] Eosinophils 0.0 K/UL 0.0-1.0 [facility] - [#/volume] in [facility] Basophils 0.0 K/UL 0.0-0.4 [facility] - [#/volume] in [facility] Immature 0.1 K/UL 0.0-0.17 [facility] - granulocytes Good [#/volume] in [facility] by Hospital Automated count Differential [facility] - cell count Good method [facility] ID Date Data Source [id number] 05/01/2019 09:07:34 AM EST [facility] Name Value Range Interpretation Description Data Sup porting Code Source(s) Document(s ) aPTT in 23.6 SEC 21.0-28. [facility] - Good Platelet poor [address] [place] [address] plasma by Hospital Coagulation assay Therapeutic Range = 42.0-60.0 secs ID Date Data Source [id number] 05/01/2019 09:07:34 AM EST [facility] Name Value Range Interpretation Description Data Sup porting Code Source(s) Document(s ) Prothrombin 10.9 sec 9.4-11.1 [facility] time (PT) [facility] INR in 1.1 0.8-1.2 [facility] - Good Platelet poor [facility] plasma by Hospital Coagulation assay ID Date Data Source [id number] 05/01/2019 07:17:59 AM EST [facility] Verbal shift change report given to chana thornton rn (oncoming nurse) by - NANCY ESPOSITO (offgoing nurse). Report given with SBA R, Kardex, MAR and Recent Results. Name Value Range Interpretation Code Description Data Harriett rce(s) Supporting Document(s ) ID Date Data Source [id number] 05/01/2019 06:01:54 AM EST [facility] Name Value Range Interpretation Description Data Sup porting Code Source(s) Document(s ) pH of Arterial 7.50 7.35-7.4 Above high normal [facility] - Good blood 5 [facility] Carbon dioxide 48 mmHg 32-48 [facility] - Good [Partial [facility] pressure] in Hospital Arterial blood Oxygen 71 mmHg 83-108 Below low normal [facility] - Good [Partial [facility] pressure] in Hospital Arterial blood Carbon 39 19-24 Above high normal [facility] - Good dioxide, total mmol/L [facility] [Moles/volume] Hospital in Arterial blood Bicarbonate 37 21-28 Above high normal [facility] - Go od [Moles/volume] mmol/L [facility] in [facility]ial [facility] blood Oxygen 99 % 94-98 Above high normal [facility] - Good saturation in [facility] Base excess in 12.4 0-3 Above high normal [facility] - Good Arterial blood mmol/L Zoroastrianism by calculation Hospital Body site [facility] Arterial [facility] - Good patency Wrist Zoroastrianism artery --pre Hospital arterial puncture NASAL O23 Service comment [id number] [facility] ID Date Data Source [id number] 05/01/2019 12:52:19 AM [facility] Pt remains restless, keeps pulling nasal cannula off. Wrist restraint applied.Hospitalist face to face, ordere d restraint Name Value Range Interpretation Code Description Data Harriett rce(s) Supporting Document(s ) ID Date Data Source [id number] 04/30/2019 09:13:19 PM [facility] Progress Bella Sleykuklu69 y.o.Adm it Date: 04/19/2019Active Problems: Pneumonia (11/08/2018) [...] Illness.Objective:Visit VitalsBP (!) 134/94 (BP [facility] Patient Position: At rest)Pulse 94Temp 97.2 F (36.2 C)Resp 23Ht 5' 2" (1.575 m)Wt 61.1 kg (134 lb 11.2 oz)SpO2 94%BMI 24.64 kg/m Intake and Output:Date 04/29/191899 - 04/30/19 0659 04/30/19 0700 - 05/01/19 0659Shift 6437-8355 24 Hour T otal 9563-0594 9004-0663 24 Hour TotalINTAKEI.V.(mL/kg/hr) 50 100 50(0.1) 50 [...] Total(mL/kg) 1000(16.4) 2850 (46.6) 1175(19.2) 1175(19.2)NET -950 -7770 -675 -675Weight (kg) 61.1 61.1 61.1 61. 1 61.1Medications Reviewed:Current Facility-Administered MedicationsMedicat ion Dose Route Frequency Provider Last Rate Last Dose vits A and D-white pet-lanoli n (A&D) ointment Topical PRN Reinier, Mili,DO furosemide (LASIX) injection 20 mg 20 mg IntraVENous BID Oralia Frankel MD20 mg at 04/30/19 1710 methylPREDNISo lone (PF) (SOLU-MEDROL) injection 40 mg 40 mg IntraVENous P01UVfqzVan tam MD 40 mg at 04/30/19 0817 bacitracin 500 unit/gram packet 1 Packet 1 Packet Topi inez TID Krystian Monae MD 1 Packet at 04/30/19 1707 vancomycin 50 mg/mL oral solution (compounded) 125 mg 125 mg Per G Tube P2UNqveewMonica severino MD 125 mg at 0 04/30/19 [...] 400 mg 4 mLInhalation TID RT Mili iHlls DO 400 mg at 04/30/190 m iconazole [...] Date: 04/30/2019AP portable film of the c [facility] rapidst clinical indication pleural effusion. Study iscompared to [...] and tracheostomy at the sametime.[facility] if no surgery needed.Oralia Frankel MDJanuary 2019 Name Value Range Interpretation Code Description Data [facility] Document([facility] ) ID Date Data Source [id number] 04/30/2019 07:21:41 PM [facility] Bedside and Verbal shift change report g iven to Chay Cooney RN (oncoming nurse)by Johann Mojica RN (offgoing nurse). Re port included the followinginformation SBAR, Kardex, Procedure Summary, MAR and Recen t Results. Name Value Range Interpretation Code Description Data [facility] Supporting Document(s ) ID Date Data Source [id number] 04/30/2019 06:49:55 PM [facility] Dr. Ovalle (health proxy) [phone] aware of plan for Trach/Peg 05/01/18 @12pm, awaiting call from for consent. . Name Value Range Interpretation Code Description Data [facility](s) Supporting Document(s ) ID Date Data Source [id number] 04/30/2019 03:26:53 PM [facility] Surgery Progress NoteNAME: Evelio Abraham beinDOB: 1950MRN: [id number]:Being seen for feeding jejunostomy. He has had [...] -- 6*EOS -- -- 0Chemistry Recent Labs 96573 04/29/2002GLU 121* -- 96 -- 149*NA 144 -- 138 -- 139K 3.7 -- 4.1 -- 3.7CL 108* -- 106 -- 107CO2 32 32* 2 5 < > 28BUN 45* -- 41* -- 35*CREA 1.96* -- 2.00* -- 1.98* < > = values in th is interval not displayed. Recent Labs 01/16/343913 01/15/942267 01/14/314453DZ 9.6 9.8 9.2PHOS 3.8 4.0 --ALB 1.9* [...] this patients care and please callme on [phone] with questions and asher rnsSigned By: Kareen Mills MD 04/30/2019 3:20 PM Name Value Range Interpretation Code Description Data Harriett rce(s) Supporting Document(s ) ID Date Data Source [id number] 04/30/2019 03:09:43 PM [facility] CM reached out to speak with the patient 's niece, Joyce ([phone]). CMdiscussed palliative care and advance directives. 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 CM discussed options for vent facilities if patient isunable to be weaned off of the vent. If patient is able to be weaned familywishes for patient to remain [facility] ([phone]) would be the facility for thevent for the patient if he is unable to be weaned. The family has been in touch with the business systems administrator of that facility. Name Value Range Interpretation Code Description Data [facility] rce(s) Supporting Document(s ) ID Date Data Source [id number] 04/30/2019 02:55:21 PM [facility] Pt is scheduled for a J tube tomorrow to replace PEG/J tube pt has (hx ofdysfunction).Pt was extubated yesterda y and is tachypnic.. Pulmonary MD to order Tracheostomy Name Value Range Interpretation Code Description Data [facility](s) Supporting Document(s ) ID Date Data Source [id number] 04/30/2019 01:05:29 PM [facility] AP portable film of the chest [...] Name Value Range Interpretation Code Description Data [facility] Supporting Document(s ) ID Date Data Source [id number] 04/30/2019 12:33:21 PM [facility] Critical Care Progress N [facility].Krystian Monae MD., F.C.C.Ratna Hamilton MD., F.C.C.P. [address] [place] [address] [place], [place] [address] Name: Evelio JohnsoninDOB: 1950MRN: [id number]: 04/30/2019Subjective:Mr. Carlin is a 68 y.o. year old male who is being see n for ACUTEHYPERCAPNIC AND HYPOXIC RESPIRATORY FAILURE . HE SI MORE DYSPNEI C TODAY AND IS USING ACCESSORY MUSCLES , RR = 33 / MT HEIS ALSO LETHARGIC THAN BEFO RE. WBC =33788 HB = 9.6, HCT = 31 BUN= [...] hrs : BP Temp Pulse Resp SpO2 Dxyjrs69/16/20 0900 133/82 - 89 (!) 31 91 [...] (cm H2O): 8PEEP/VENT (cm H2O): 5 cm N54Exki PEEP Observed (cm H2O): 2.3 cm J2UJszs Rate Tidal Volume Pressure FiO2 PEEPPressure support 400 ml 10 cm H2O 40 % 5 cm G81Vloz airway pressure: 16 cm U1NNcymgb ventilation: 9.4 l/minARDS net work Guidelines: Lung [...] (porcine) injection 5,000 Units 5,000 Units SubCUTAneous P95OWiwcqkuzg: [x]Sinus []A -flutter []Paced []A-fib []Multiple PVC'sLabs:Recent [...] Date/Time CULTURE, RESPIRATORY/SPUTUM/BR ONCH W GRAM STAIN [[id number]] (Abnormal)(Susceptibility) Collected: 0 04/26/19 1700 Order Status: Completed Specimen: Sputum from Tracheal Aspirate Updated:04/29/19 1051 Special Requests: NO SPECIAL REQUESTS GRAM STAIN 10-25 WBC/l pf <10 EPI/lpf FEW GRAM POSITIVE RODS Culture result: MODERATE PSEUDOMONAS AE RUGINOSA CULTURE, BLOOD [[id number]] Collected: 04/25/19 1205 Order Status: Completed Specimen: Blood Updated: 04/29/19 0607 Special Requests: NO SPEC IAL REQUESTS Culture result: NO GROWTH 4 DAYS CULTURE, BLOOD [[id number]] Collecte d: 04/25/19 1210 Order Status: Completed Specimen: Blood Updated: 04/29/19 0607 Special Requests: NO SPECIAL REQUESTS Culture result: NO GROWTH 4 DAYS C. DIFF ICILE (DNA) [[id number]] Collected: 04/27/19 0915 Order Status: Completed Specimen: Stool Updated: 04/27/19 1246 C. difficile (DNA) NEGATIVE Comment: This specimen i s negative for toxigenic C difficile by DNAamplification. Repeat testing is not recommended for confirmation, samplesreceived within 7 days of this ne gative result will be rejected. C. DIFFICILE (DNA) [[id number]] (Abnormal) Collected: 04/25/19 1715 Order Status: Completed Specimen: Stool Updated: 04/26/19 1551 C. difficile (DNA) TEST RESULT IS INCONCLUSIVE. PLEASE SUBMIT A NEW SPECIM EN FOR ANALYSIS. CULTURE, URINE [[id number]] Collected: 04/25/19 1147 Order Status: Completed Specimen: Urine from Clean catch Updated: Special Requests : NO SPECIAL REQUESTS Culture result: NO GROWTH 1 DAY C. DIFFICILE (DNA) [[id number]] Order Status: Sent Specimen: Stool CULTURE, BLOOD [[id number]] Collected: 0 04/20/19 1440 Order Status: Completed Specimen: Blood Updated: 04/26/19 0818 Special Requests: NO SPECIAL REQUESTS Culture result: NO GROWTH 6 DAYS CULTURE , BLOOD [[id number]] Collected: 04/20/19 1447 Order Status: Completed Specimen: Bloo d Updated: 04/26/19 0818 Special Requests: NO SPECIAL REQUESTS Culture result: NO GROWTH 6 DAYS CULTURE, BLOOD [[id number]] (Abnormal) Collected: 04/19/19 1005 Ord er Status: Completed Specimen: Blood Updated: 04/22/19 0731 Special Request s: NO SPECIAL REQUESTS GRAM STAIN GRAM POSITIVE COCCI IN CLUSTERS ANAEROBIC BOT TLE CALLED TO AND READ BACK BY ROB LEDEZMA RN, ED, 0953 ON 04/20/19 TORMAIN IRAGLTHUY Culture result: STAPHYLOCOCCUS EPIDERMIDIS : Refer to previous culture( s) for susceptibilityresults CULTURE, BLOOD [[id number]] (Abnormal) (Susceptibility ) Collected: Order Status: Completed Specimen: Blood Updated: 12/02 0729 Special Requests: NO SPECIAL REQUESTS GRAM STAIN GRAM POSITIVE COCC I IN CLUSTERS ANAEROBIC BOTTLE CALLED TO AND READ BACK BY ROB LEDEZMA RN, ED, AT 0953 ON 04/20/19 TORISMIRAGLIA Culture result: STAPHYLOCOCCUS EPIDERMIDISXR Re sults (most recent):Results from Hospital Encounter encounter on 04/19/19XR GASTRO GRAFFIN UPPER GI Narrative History:J-tube placement.FINDINGS:A translator and interpreter film of the a bdomen reveals a [...] MD04/20/2019 22:43 EST M.D. Please call Imaging Canal Structure Operator [phone]) withquestions.T his report was electronically signed by:Marcie [...] the procedure or anatomicalre gions you entered.Example: .BSHSILASTIMGCAT[[id number]:3This example wo uld display results for the last three orders with an externalprocedure ID of [id number] he patient is: [] acutely ill Risk [...] D PENDING9. SEPSIS L A = 2.5 ILKMOLVNE87. BACTER EMIA G + COCCI - STAPH [...] with:[x]n ursing []PT/OT[x]respiratory therapy [][x]family DR [facility] [phone] []Critical Care Provided 60 minutes non procedure based.Krystian Monae MD FGualbertoC GualbertoCGualbertoP. Name Value Range Interpretation Code Description Data Harriett rce(s) Supporting Document(s ) ID Date Data Source [id number] 04/30/2019 10:31:43 AM EST [facility] GI PROGRESS NOTENAME: Evelio Shukla hbeinDOB: 1950MRN: [id number]:Tolerating TF via J-po rt at 35 cc [...] hernia K44.9 COPD (chronic obstructive pulmonary disease) ([facility]) J44 .9 Acute respiratory distress R06.03 Pneumonia J18.9 COPD exacerbation ([facility]) J44.1 Sepsis due to undetermined organism ([facility]) A41.9 Generalized anxiety disorde r F41.1 Acute respiratory failure with hypoxia ([facility]) J96.01 Pneumonia involvin g right lung J18.9 Hyponatremia E87.1 SOB (shortness of breath) R06.02 Pressure i njury of right heel, stage 2 ([facility]) L89.612 Leg wound, right, initial encounter S81. 801A Acute hypoxemic respiratory failure (HCC) J96.01 COPD with acute exacerbati on ([facility]) J44.1 Acute on chronic respiratory failure with hypoxia and hypercapnia (HC C)J96.21, J96.22 Scrotal rash S83Kbimstidfw: Dysfunctional J-tube over PEG - now wor wanda okPlan: Please recall GI as needed. Use center port for TF only and give Rx via sideports.Signed By: Diogo Collins MD 04/30/2019 10:30 AM Name Value Range Interpretation Code Description Data Harriett rce(s) Supporting Document(s ) ID Date Data Source [id number] 04/30/2019 07:39:38 AM EST [facility] Bedside and Verbal shift change report carol Wills RN (oncoming nurse) Gerardo PITTS (offgoing nurse). Report included the fo llowing information SBAR,Kardex, ED Summary, Intake/Output, MAR, Recent Results and C ardiac Rhythm NSR. Name Value Range Interpretation Code Description Data Harriett rce(s) Supporting Document(s ) ID Date Data Source [id number] 04/30/2019 06:09:22 AM EST [facility] ID Progress Note04/30/2019Subjective:Pt e xtubatedC. Diff test was NEGATIVEEEG did not show any seizureAfebrileBlood cx remain negativeResp cx with pseudomonasObjective:Review of SystemsPa tient is unable to provideVitals:Patient Vitals for the past 24 hrs: BP Temp Puls e Resp SpO2 Zuaqwj66/16/20 0402 - 97.8 F (36.6 C) - [...] (porcine) injection 5,000 Units 5,000 Units SubCUTAneous K22RRafs:Recent Labs 04/29/200504/28/200229WBC 13.0* 12.8* -- 11.1*HG B [...] ult Date: 04/29/2019History: J-tube placement. FINDINGS: A translator and interpreter film of the abdomen re veals a [...] vancomycin prophylaxis dose3. Follow [facility]Mahlet [id number] AM Name Value Range Interpretation Code Description Data Harriett rce(s) Supporting Document(s ) ID Date Data Source [id number] 04/30/2019 05:55:10 AM EST [facility] Name Value Range Interpretation Description Data Sup porting Code Source(s) Document(s ) Magnesium 2.6 mg/dL 1.6-2.6 [facility] - Good [Mass/volume] Zoroastrianism in Serum or Hospital Plasma ID Date Data Source [id number] 04/30/2019 05:55:10 AM EST [facility] Name Value Range Interpretation Description Data Sup porting Code Source(s) Document(s ) Sodium 144 136-145 [facility] - Good [Moles/volume] mmol/L Zoroastrianism in Serum or Hospital Plasma Potassium 3.7 3.5-5.1 [facility] - Good [Moles/volume] mmol/L [facility]oroastrianism in Serum or Hospital Plasma Chloride 108 98-107 Above high normal [facility] - Good [Moles/volume] mmol/L [facility]astrianism in Serum or Hospital Plasma Carbon 32 21-32 [facility] - Good dioxide, total mmol/L Zoroastrianism [Moles/volume] Hospital in Serum or Plasma Anion gap in 8 mmol/L 10-20 Below low normal [facility] - Go od Serum or Zoroastrianism Plasma Hospital Glucose 121 74-106 Above high normal [facility] - Good [Mass/volume] mg/dL Zoroastrianism in Serum or Hospital Plasma Urea nitrogen 45 mg/dL 7-18 Above high normal [facility] - Good [Mass/volume] Zoroastrianism in Serum or Hospital Plasma Creatinine 1.96 0.70-1.3 Above high normal [facility] - Goo d [Mass/volume] mg/dL 0 Zoroastrianism in Serum or Hospital Plasma Glomerular 44 >60 Below low normal [facility] - Good filtration ml/min/1 Zoroastrianism rate/1.73 sq M .73m2 Hospital predicted among blacks [Volume Rate/Area] in Serum or Plasma by Creatinine-bas ed formula (MDRD) Glomerular 36 >60 Below low normal [facility] - Good filtration ml/min/1 Zoroastrianism rate/1.73 sq M .73m2 Hospital predicted among non-blacks [Volume Rate/Area] in Serum or Plasma by Creatinine-bas ed formula (MDRD) Calcium 9.6 8.5-10.1 [facility] - Good [Mass/volume] mg/dL Zoroastrianism in Serum or Hospital Plasma Phosphate 3.8 2.5-4.9 [facility] - Good [Mass/volume] mg/dL Zoroastrianism in Serum or Hospital Plasma Albumin 1.9 g/dL 3.5-4.7 Below low normal [facility] - Good [Mass/volume] Zoroastrianism in Serum or Hospital Plasma by Bromocresol purple (BCP) dye binding method ID Date Data Source [id number] 04/30/2019 05:54:28 AM EST [facility] Name Value Range Interpretation Description Data Sup porting Code Source(s) Document(s ) Leukocytes 13.0 4.8-10.6 Above high normal [facility] - [#/volume] in K/uL Good Blood by Zoroastrianism Automated count Hospital Erythrocytes 3.19 4.70-6.0 Below low normal [facility] - [#/volume] in M/uL 0 Good Blood by Zoroastrianism Automated count [facility] Hemoglobin 9.6 g/dL 14.0-18. Below low normal [facility] - [Mass/volume] in 0 Good Blood [facility] Hematocrit 30.9 % 42.0-52. Below low normal [facility] - [Volume 0 Good Fraction] of Zoroastrianism Blood by Hospital Automated count Erythrocyte mean 96.9 FL 81.0-94. Above high normal [facility] - corpuscular 0 Good volume [Entitic Zoroastrianism volume] by Hospital Automated count Erythrocyte mean 30.1 PG 27.0-35. [facility] - corpuscular 0 Good hemoglobin Zoroastrianism [Entitic mass] Hospital by Automated count Erythrocyte mean 31.1 30.7-37. [facility] - corpuscular g/dL 3 Good hemoglobin Zoroastrianism concentration [facility] [Mass/volume] by Automated count Erythrocyte 17.5 % 11.5-14. Above high normal [facility] - distribution 0 Good width [Ratio] by Zoroastrianism Automated count Hospital Platelets 581 K/uL 130-400 Above high normal [facility] - [#/volume] in [facility] Blood by Zoroastrianism Automated count Hospital Platelet mean 9.5 FL 9.2-11.8 [facility] - volume [Entitic Good volume] in Blood Zoroastrianism by Automated Hospital count Nucleated 0.0 PER 0 [facility] - erythrocytes/100 100 WBC Good leukocytes Zoroastrianism [Ratio] in Blood Hospital Nucleated 0.00 0.0-0.01 [facility] - erythrocytes K/uL Good [#/volume] in Zoroastrianism Blood Hospital ID Date Data Source [id number] 04/29/2019 07:45:50 PM EST [facility] Bedside and Verbal shift change report carol pham to Tessie PITTS (oncoming nurse) by NANCY Davis(offgoing nurse). Report given with SB AR, Kardex, Intake/Output, MAR and RecentResults. Name Value Range Interpretation Code Description Data Harriett rce(s) Supporting Document(s ) ID Date Data Source [id number] 04/29/2019 04:45:40 PM EST [facility] I spoke with patients HCP Sandro Ovalle ab out patients clinical condition,indication for feeding jejunostomy tube placement, his high risk profile due tohis poor functional status and medical co-morbidi ties.Patient's healthcare proxy understands the risk associated with generalanesthes ia and surgical intervention and would like to proceed [facility].We will schedule him for surgical jejunostomy tu be placement on 05/01/2019Continue current medical and pulmonary optimizationJerardo alexandre Name Value Range Interpretation Code Description Data Harriett rce(s) Supporting Document(s ) ID Date Data Source [id number] 04/29/2019 03:58:59 PM EST [facility] Surgery Progress NoteNAME: Evelio Abraham beinDOB: 1950MRN: [id number]:Was extubated yesterda yPneumonia appears to be improving [...] Date: 04/29/2019History: J-tube placement. FIND INGS: A translator and interpreter film of the abdomen reveals a tubeoverlying [...] es.Plan:I tried to reach his HCP on [phone], went into voice mail.Will try again to speak with HCP to discuss his current clinical condition andhigh risk profile for surgery.Continue current care for nowThank you for allowing me to particip ate in this patients care and please callme on [phone] with questions and asher rnsSigned By: Kareen Mills MD 04/29/2019 3:53 PM Name Value Range Interpretation Code Description Data [facility](s) Supporting Document(s ) ID Date Data Source [id number] 04/29/2019 03:19:00 PM EST [facility] [address] Mills will speak to pt's norma jay regarding plan of care for surgery. Name Value Range Interpretation Code Description Data [facility] rce(s) Supporting Document(s ) ID Date Data Source [id number] 04/29/2019 02:30:02 PM [facility] Critical Care Progress N [facility]Krystian Monae MD., F.C.C.P.Stella Hamilton MD., F.C.C.P. [address] [place] [address] [place] [address] Name: Evelio JohnsoninDOB: 1950MRN: [...] 24 hrs : BP Temp Pulse Resp AzC27804/29/19 1400 (!) 137/102 - (!) 102 (!) [...] H2O) : 8PEEP/VENT (cm H2O): 5 cm K52Ygbh PEEP Observed (cm H2O): 2.3 cm Z4HZhxd Rate T idal Volume Pressure FiO2 PEEPPressure support 400 ml 10 cm H2O 40 % 5 cm H2 0Peak airway pressure: 16 cm F5OUpievi ventilation: 9.4 l/minARDS network Guide lines: Lung [...] (porcine) injection 5,000 Units 5,000 Units SubCUTAneous H91YFdcgoumgd: [x]Sinus []A -flutter []Paced []A-fib []Multiple PVC'sLabs:Recent [...] PEEP/CPAP 5 PRESSURE SUPPORT 10 Performed by [id number] GNESIUM Collection Time: 04/29/19 3:45 AMResult Value [...] 8 L/min FIO2 40.0 % Performed by [id number] W/O DI FF Collection Time: 04/29/19 6:45 [...] Date/Time CULTURE, RESPIRATORY/SPUTUM/BRONCH W GRAM STAIN [ [id number]] (Abnormal)(Susceptibility) Collected: 04/26/19 1700 Order Status: Completed Specimen: Sputum from Tracheal Aspirate Updated:04/29/19 1051 Special Requests: NO SPECIAL REQUESTS GRAM STAIN 10-25 WBC/lpf <10 EPI/lpf FEW GRAM P OSITIVE RODS Culture result: MODERATE PSEUDOMONAS AERUGINOSA CULTURE, BLOOD [[id number]] Collected: 04/25/19 1205 Order Status: Completed Specimen: Blood Upda mikel: 04/29/19 0607 Special Requests: NO SPECIAL REQUESTS Culture result: NO HAIDER WTH 4 DAYS CULTURE, BLOOD [[id number]] Collected: 04/25/19 1210 Order Status: Completed Specimen: Blood Updated: 04/29/1907 Special Requests: NO SPEC IAL REQUESTS Culture result: NO GROWTH 4 DAYS C. DIFFICILE (DNA) [[id number]] Manuel ected: 04/27/19 0915 Order Status: Completed Specimen: Stool Updated: 1246 C. difficile (DNA) NEGATIVE Comment: This specimen is negative for t oxigenic C difficile by DNAamplification. Repeat testing is not recommended for co nfirmation, samplesreceived within 7 days of this negative result will be rejected. C . DIFFICILE (DNA) [[id number]] (Abnormal) Collected: 04/25/19 1715 Order Status: Completed Specimen: Stool Updated: 04/26/19 1551 C. difficile (DNA) TEST RESULT IS INCONCLUSIVE. PLEASE SUBMIT A NEW SPECIMEN FOR ANALYSIS. CULTURE, URINE [[id number]] Collected: 04/25/19 1147 Order Status: Completed Specimen: Urine from Clean catch Updated: Special Requests: NO SPECIAL REQUESTS Culture r esult: NO GROWTH 1 DAY C. DIFFICILE (DNA) [[id number]] Order Status: Sent Specimen : Stool CULTURE, BLOOD [[id number]] Collected: 04/20/19 1440 Order Status: Completed Specimen: Blood Updated: 04/26/19817 Special Requests: NO SPEC IAL REQUESTS Culture result: NO GROWTH 6 DAYS CULTURE, BLOOD [[id number]] Collecte d: 04/20/19 144 Order Status: Completed Specimen: Blood Updated: 04/26/19817 Special Requests: NO SPECIAL REQUESTS Culture result: NO GROWTH 6 DAYS CULTURE , BLOOD [[id number]] (Abnormal) Collected: 04/19/19 1005 Order Status: Completed S pecimen: Blood Updated: 04/22/19 0731 Special Requests: NO SPECIAL REQUESTS G ESCOBAR STAIN GRAM POSITIVE COCCI IN CLUSTERS ANAEROBIC BOTTLE CALLED TO AND READ MAIN K BY ROB LEDEZMA RN, ED, 0953 ON 04/20/19 TORISMIRAGLIA Culture result: S TAPHYLOCOCCUS EPIDERMIDIS : Refer to previous culture(s) for susceptibilityresults CUL RUPESH, BLOOD [[id number]] (Abnormal) (Susceptibility) Collected: 5 Order Status: Completed [...] GASTROGRAFFIN UPPER GI Narrat britni History:J-tube placement.FINDINGS:A translator and interpreter film of the abdomen reveals a tube [...] Fredi04/20/2019 22:43 ESTM.D. Please call I kaity Canal Structure Operator [phone] ([phone]) withquestions.This report was electronic ally signed by:Marcie [...] the procedure or anatomicalre gions you entered.Example: .BSHSILASTIMGCAT[[id number]:3This example wo uld display results for the last three orders with an externalprocedure ID of [id number] he patient is: [] acutely ill Risk [...] Supporting Document(s ) ID Date Data Source [id number] 04/29/2019 10:59:01 AM EST [facility] GI PROGRESS NOTENAME: Evelio Shukla hbeinDOB: 1950MRN: [id number]:J-tube over PEG workin g at this time. Tube study shows properly placed injejunum.There was discussion ab out having pt [facility] for surgical J-tubeplacement but not urgent at [...] hernia K44.9 COPD (chronic obstructive pulmonary disease) ([facility]) J44 .9 Acute respiratory distress R06.03 Pneumonia J18.9 COPD exacerbation ([facility]) J44.1 Sepsis due to undetermined organism ([facility]) A41.9 Generalized anxiety disorde r F41.1 Acute respiratory failure with hypoxia ([facility]) J96.01 Pneumonia involvin g right lung J18.9 Hyponatremia E87.1 SOB (shortness of breath) R06.02 Pressure i njury of right heel, stage 2 ([facility]) L89.612 Leg wound, right, initial encounter S81. 801A Acute hypoxemic respiratory failure (HCC) J96.01 COPD with acute exacerbati on ([facility]) J44.1 Acute on chronic respiratory failure with hypoxia and hypercapnia (HC C)J96.21, J96.22 Scrotal rash D03Uycauauqix: Dysfunctional J-tube over PEG. Seems t o [...] Name Value Range Interpretation Code Description Data [facility](s) Supporting Document(s ) ID Date Data Source [id number] 04/29/2019 10:38:54 AM [facility] History: J-tube placement.FINDINGS:A sco ut film of [...] Supporting Document(s ) ID Date Data Source [id number] 04/29/2019 10:35:13 AM [facility] XR CHEST SNGL VCLINICAL INDICATION PROVI DED:. [...] Supporting Document(s ) ID Date Data Source [id number] 04/29/2019 10:03:06 AM [facility] ID Progress Note04/29/2019Subjective:Pt e xtubatedC. Diff test was NEGATIVEEEG did not show any seizureAfebrileBlood cx remain negativeResp cx with moderate GNR'sObjective:Review of SystemsPatient is unable to provideVitals:Patient Vitals for the past 24 hrs: BP Temp Pulse Resp SpO2 Wdfwbk67/15/20 0800 140/77 98 F (36.7 C) 95 [...] injection 5,000 Units 5,000 U nits SubCUTAneous W56YLrpt:Recent Labs 04/29/200245 0 04/27/200320WBC 12.8* -- 11.1* [...] upper abdomenAssessment: Staph sepsis. Aspiration pneumonia. Ac [place] COPD exacerbation. Acute respiratory failure. Pleural effusion. Dysphagia Fever R/o C. difficile Plan:1. Continue meropenem2. Continue oral vancomycin pro phylaxis dose3. Follow GNR's in sputum4. Follow blood cxMahlet Nayan Gomezuary 20200102 AM Name Value Range Interpretation Code Description Data [facility](s) Supporting Document(s ) ID Date Data Source [id number] 04/29/2019 09:06:43 AM EST [facility] Progress NoteEvelio Carlin68 y.o.Adm it Date: [...] 04/29/19 0659 04/29/19699 - 04/30/19 0 659Shift 3744-2598 1082-9152 24 Hour Total 1050-4617 9357-6565 24 Hour TotalINTAKEI .V.(mL/kg/hr) 320(0.4) 50(0.1) 370(0.2) [...] 1 xShift Total(mL/kg) 1800(27.7) 1000(15.4) 2800( 43.1)NET -1207 -158 -4926Weight (kg) 65 65 65 65 65 65Medications [...] 125 mg 125 mg Per G Tube Y5VFnpsyaMonica severino MD 12 5 mg at 04/29/19 [...] 5 PRESSU RE SUPPORT 10 Performed by [id number] Collection Time: 04/29/19 3:45 AMResult Value Ref [...] Name Value Range Interpretation Code Description [facility] ) ID Date Data Source [id number] 04/29/2019 07:23:44 AM EST [facility] Bedside and Verbal shift change report carol Ortiz RN (oncoming nurse) by Rhea (offgoing nurse). Report included the fo llowing information SBAR, Kardex, EDSummary, Intake/Output, MAR, Recent Results and C ardiac Rhythm NSR. Name Value Range Interpretation Code Description Data [facility](s) Supporting Document(s ) ID Date Data Source [id number] 04/29/2019 07:06:35 AM EST [facility] Name Value Range Interpretation Description Data Sup porting Code Source(s) Document(s ) Leukocytes 12.8 4.8-10.6 Above high normal [facility] - [#/volume] in K/uL [facility] Blood by [facility] Automated count Hospital Erythrocytes 3.18 4.70-6.0 Below low normal [facility] - [#/volume] in M/uL 0 Good Blood by [facility] Automated count Hospital Hemoglobin 9.7 g/dL 14.0-18. Below low normal [facility] - [Mass/volume] in 0 Good Blood [facility] Hematocrit 30.8 % 42.0-52. Below low normal [facility] - [Volume 0 Good Fraction] of [facility]ism Blood by Hospital Automated count Erythrocyte mean 96.9 FL 81.0-94. Above high normal [facility] - corpuscular 0 Good volume [Entitic [facility]astrianism volume] by Hospital Automated count Erythrocyte mean 30.5 PG 27.0-35. [facility] - corpuscular 0 Good hemoglobin [facility] [Entitic mass] Hospital by Automated count Erythrocyte mean 31.5 30.7-37. [facility] - corpuscular g/dL 3 Good hemoglobin [facility]ism concentration [facility] [Mass/volume] by Automated count Erythrocyte 17.4 % 11.5-14. Above high normal [facility] - distribution 0 Good width [Ratio] by [facility] Automated count Hospital Platelets 557 K/uL 130-400 Above high normal [facility] - [#/volume] in Good Blood by [facility] Automated count [facility] Platelet mean 9.2 FL 9.2-11.8 [facility] - volume [Entitic Good volume] in Blood [facility] by Automated Hospital count Nucleated 0.0 PER 0 [facility] - erythrocytes/100 100 WBC Good leukocytes [facility] [Ratio] in Blood Hospital Nucleated 0.00 0.0-0.01 [facility] - erythrocytes K/uL Good [#/volume] in Zoroastrianism Blood [facility] ID Date Data Source [id number] 04/29/2019 06:12:02 AM EST [facility] Name Value Range Interpretation Description Data Sup porting Code Source(s) Document(s ) pH of Arterial 7.45 7.35-7.4 [facility] blood 5 [facility] Carbon dioxide 44 mmHg 32-48 [facility] [Partial [facility]ism pressure] in Hospital Arterial blood Oxygen 70 mmHg 83-108 Below low normal [facility] [Partial [facility]ism pressure] in Hospital Arterial blood Carbon 32 19-24 Above high normal [facility] Good dioxide, total mmol/L [facility] [Moles/volume] Hospital in Arterial blood Bicarbonate 31 21-28 Above high normal [facility] - Go od [Moles/volume] mmol/L [facility] in Arterial Hospital blood Oxygen 96 % 94-98 [facility] Good saturation in [facility] Base excess in 5.8 0-3 Above high normal [facility] Good Arterial blood mmol/L [facility] by calculation Hospital Body site [facility]ial [facility] Wrist [facility] artery --pre Hospital arterial puncture AEROSOL MASK8 Oxygen/Inspired gas Respiratory system 40.0 % [facility] --on ventilator Service comment [id number] [facility] - [facility] ID Date Data Source [id number] 04/29/2019 05:43:58 AM EST [facility] Value Range Interpretation Description Data Sup porting Code Source(s) Document(s ) Phosphate 4.0 mg/dL 2.5-4.9 [facility] [Mass/volume] [facility]astrianism in Serum or Hospital Plasma ID Date Data Source [id number] 04/29/2019 05:43:58 AM EST [facility] Value Range Interpretation Description Data Sup porting Code Source(s) Document(s ) Magnesium 2.5 mg/dL 1.6-2.6 [facility] [Mass/volume] [facility]astrianism in Serum or Hospital Plasma ID Date Data Source [id number] 04/29/2019 05:43:58 AM EST [facility] Value Range Interpretation Description Data Sup porting Code Source(s) Document(s ) Albumin 1.8 g/dL 3.5-4.7 Below low normal [facility] [Mass/volume] [facility]astrianism in Serum or Hospital Plasma by Bromocresol purple (BCP) dye binding method ID Date Data Source [id number] 04/29/2019 05:43:58 AM EST [facility] Name Value Range Interpretation Description Data Sup porting Code Source(s) Document(s ) Sodium 138 136-145 [facility] [Moles/volume] mmol/L [facility] in Serum or Hospital Plasma Potassium 4.1 3.5-5.1 [facility] [Moles/volume] mmol/L [facility] in Serum or Hospital Plasma Chloride 106 98-107 [facility] [Moles/volume] mmol/L [facility] in Serum or Hospital Plasma Carbon 25 21-32 [facility] - [facility] dioxide, total mmol/L [facility] [Moles/volume] Hospital in Serum or Plasma Anion gap in 11 10-20 [facility] Serum or mmol/L [facility] Plasma Hospital Glucose 96 mg/dL 74-106 [facility] [Mass/volume] [facility]oroastrianism in Serum or Hospital Plasma Urea nitrogen 41 mg/dL 7-18 Above high normal [facility] [Mass/volume] [facility]oroastrianism in Serum or Hospital Plasma Creatinine 2.00 0.70-1.3 Above high normal [facility] - G[facility] d [Mass/volume] mg/dL 0 [facility] in Serum or Hospital Plasma Glomerular 43 >60 Below low normal [facility] - [facility] filtration ml/min/1 [facility]rianism rate/1.73 sq M .73m2 Hospital predicted among blacks [Volume Rate/Area] in Serum or Plasma by Creatinine-bas ed formula (MDRD) Glomerular 35 >60 Below low normal [facility] - [facility] filtration ml/min/1 [facility]rianism rate/1.73 sq M .73m2 Hospital predicted among non-blacks [Volume Rate/Area] in Serum or Plasma by Creatinine-bas ed formula (MDRD) Calcium 9.8 8.5-10.1 [facility] [Mass/volume] mg/dL [facility]rianism in Serum or Hospital Plasma ID Date Data Source [id number] 04/28/2019 07:43:01 PM EST [facility] Bedside and Verbal shift change report carol pham to Tessie PITTS (oncoming nurse) Quinn Banks RN(offgoing nurse). Report given w ith SBAR, Kardex, Intake/Output, MAR and RecentResults. Name Value Range Interpretation Code Description Data [facility] ) ID Date Data Source [id number] 04/28/2019 06:16:00 PM [facility] 0800 Received pt in bed intubated; awake alert. Tube feeding infusing andtolerating.1150 Pt placed on CPAP/PS as ordered by Dr Monae.1400 Pt tolerating cpap/ps. Awaiting ABG to be drawn.[address] Frankel pt to be transferred to [facility].1550 Dr Monae made aware of ABG res ults; said to extubate to 40% aerosol.1555 RT made aware.1615 pt extubated to 40 % aer osol esyr3085 As per Pt's nephew; Dr Frankel initiated [...] Name Value Range Interpretation Code Description Data [facility](s) Supporting Document(s ) ID Date Data Source [id number] 04/28/2019 04:20:09 PM [facility] Pt extubated to 40% aerosal face mask. 0 04/28/19 1618Patient ObservationsPulse (Heart Rate) 90Resp Rate 28O2 Sat (%) 100 %Resp iratoryRespiratory (WDL) WDLRespiratory Pattern TachypneicVentilator Initiate/Di scontinueVentilator Discontinue YesVentilator MeasurementsResp Rate Observed 28 Name Value Range Interpretation Code Description Data [facility](s) Supporting Document(s ) ID Date Data Source [id number] 04/28/2019 03:01:05 PM [facility] PT FOR TRANSFER TO MEDICAL CENTER. Nadeem feldman transfer Center and coordinatorreports pt accepted by Dr Larson and is awaiting an MICU bed. Face sheet, H&Pand clinicals faxed.They will notify the CCU and arran ge transportation when ICU bed available.Care Management InterventionsPCP Verified by CM: YesMode of Transport at Discharge: BLS([facility] )Transition of Care Consult (CM Consult): Discharge PlanningMyChart Signup: NoDischarge Dura ble Medical Equipment: NoPhysical Therapy Consult: NoOccupational Therapy Consult: NoSpeech Therapy Consult: NoCurrent Support Network: Nursing Facility([facility] )The Patient and/or Patient Software Applications Engineer was Provided with a Choice of Provideran d Agrees with the Discharge Plan?: YesFreedom of Choice List was Provided with Basic D ialogue that Supports thePatient's Individualized Plan of Care/Goals, Treat ment Preferences and Sharesthe Quality Data Associated with the Providers?: YesVeter an Resource Information Provided?: RefusedDischarge LocationDischarge Place ment: Transferred to higher level of care(TRANSFER TO [facility])Dr Cardona has docume about transfernted that he spoke with family. Name Value Range Interpretation Code Description Data Harriett rce(s) Supporting Document(s ) ID Date Data Source [id number] 04/28/2019 02:50:45 PM EST [facility] Name Value Range Interpretation Description Data Sup porting Code Source(s) Document(s ) pH of Arterial 7.48 7.35-7.4 Above high normal [facility] blood [address] [place] [address] Carbon dioxide 39 mmHg 32-48 [facility] [Partial [facility] pressure] in Hospital Arterial blood Oxygen 98 mmHg 83-108 [facility] [Partial [facility] pressure] in Hospital Arterial blood Carbon 30 19-24 Above high normal [facility] - [facility] dioxide, total mmol/L [facility] [Moles/volume] Hospital in Arterial blood Bicarbonate 29 21-28 Above high normal [facility] - [facility] od [Moles/volume] mmol/L [facility] in Arterial Hospital blood Oxygen 98 % 94-98 [facility] saturation in [facility] Base excess in 5.2 0-3 Above high normal [facility] Arterial blood mmol/L [facility] by calculation Hospital Body site [facility] Arterial [facility] - [facility] patency Wrist [facility]ism artery --pre Hospital arterial puncture Oxygen gas [facility] - [facility] flow Oxygen [facility] delivery Hospital system Oxygen/Inspire 40.0 % [facility] d gas [facility] Respiratory Hospital system --on ventilator Ventilation [facility] mode [facility]rianism [Identifier] [facility] Ventilator PEEP 5 [facility] Respiratory [facility] system Hospital Pressure 10 [facility] support [facility] Hospital Ventilator Service [id number] [facility] - [facility] comment [facility] ID Date Data Source [id number] 04/28/2019 02:31:43 PM EST [facility] Spoke to Dr Rice about patiet transfe r, I spoke to family sister and cousinDr Sandro DAVISLER [phone] ke to transfer center in [facility], accept pt to be transferd to ICU via ICUtransfer Name Value Range Interpretation Code Description Data [facility]riett rce(s) Supporting Document(s ) ID Date Data Source [id number] 04/28/2019 02:20:24 PM EST [facility] Abdomen clinical indication evaluate J-t ube [...] Supporting Document(s ) ID Date Data Source [id number] 04/28/2019 02:21:48 PM EST [facility] Critical Care Progress [facility]Krystian Monae MD., F.C.C.P.Stella Hamilton MD., F.C.C.P. [address] [place] [address] [place] [address] Name: Evelio AlexinDOB: [...] 24 hrs: BP Temp Pulse Resp SpO2 Etvzhf42/14/20 1303 - - 80 23 98 % [...] (cm H2O): 8PEEP/VENT (cm H2O): 5 cm Z74Pfxt PEEP Observed (cm H2O): 2.3 cm C3FGsxo Rate Tidal Volume Pressure FiO2 PEEPPressure support 400 ml 10 cm H2O 40 % 5 cm U11Jxwv airway pressure: 16 cm K1RDfgzck ventilation: 9.4 l/minARDS net work Guidelines: Lung [...] CNII-XII intact. No focal motor or sensory deficit.DATA:[facility] ent Facility-Administered MedicationsMedication Dose Route Frequen cy [...] (porcine) injection 5,000 Units 5,000 Units SubCUTAneous B02KVkcabkblg: [x]Sinus []A -flutter []Paced []A-fib []Multiple PVC'sLabs:Recent [...] Tidal volume 400 RATE 18 Performed by [id number]:Recent Labs 04/25/20214PH 7.46* 7.46* 7.41PCO2 39 41 52*PO2 111* 96 114*HCO3 28 29* 33* FIO2 40.0 50.0 60.0Recent Glucose Results:Lab ResultsComponent Value Date/Time GLU 149 (H) 04/28/2019 03:29 AMCULTURES:All Micro Results Procedure Component Value Units Date/Time CULTURE, RESPIRATORY/SPUTUM/BRONCH W GRAM STAIN [[id number]] (Abnormal)Manuel ected: 04/26/19 1700 Order Status: Completed Specimen: Sputum from Trachea l Aspirate Updated:04/28/19 1050 Special Requests: NO SPECIAL REQUESTS GRAM STAI N 10-25 WBC/lpf <10 EPI/lpf FEW GRAM POSITIVE RODS Culture result: MODERATE GRAM NEGATIVE RODS IDENTIFICATION AND SUSCEPTIBILITY TO FOLLOW CULTURE, BLOOD [[id number]] Collected: 04/25/19 1205 Order Status: Completed Specimen: Blood Upda mikel: 04/28/19 0621 Special Requests: NO SPECIAL REQUESTS Culture result: NO HAIDER WTH 3 DAYS CULTURE, BLOOD [[id number]] Collected: 04/25/19 1210 Order Status: Completed Specimen: Blood Updated: 04/28/19 0621 Special Requests: NO SPEC IAL REQUESTS Culture result: NO GROWTH 3 DAYS C. DIFFICILE (DNA) [[id number]] Manuel ected: 04/27/19 0915 Order Status: Completed Specimen: Stool Updated: 1246 C. difficile (DNA) NEGATIVE Comment: This specimen is negative for t oxigenic C difficile by DNAamplification. Repeat testing is not recommended for co nfirmation, samplesreceived within 7 days of this negative result will be rejected. C . DIFFICILE (DNA) [[id number]] (Abnormal) Collected: 04/25/19 1715 Order Status: Completed Specimen: Stool Updated: 04/26/19 1551 C. difficile (DNA) TEST RESULT IS INCONCLUSIVE. PLEASE SUBMIT A NEW SPECIMEN FOR ANALYSIS. CULTURE, URINE [[id number]] Collected: 04/25/19 1147 Order Status: Completed Specimen: Urine from Clean catch Updated: Special Requests: NO SPECIAL REQUESTS Culture r esult: NO GROWTH 1 DAY C. DIFFICILE (DNA) [[id number]] Order Status: Sent Specimen : Stool CULTURE, BLOOD [[id number]] Collected: 04/20/19 1440 Order Status: Completed Specimen: Blood Updated: 04/26/19 08 Special Requests: NO SPEC IAL REQUESTS Culture result: NO GROWTH 6 DAYS CULTURE, BLOOD [[id number]] Collecte d: 04/20/19 1447 Order Status: Completed Specimen: Blood Updated: 04/26/19 08 Special Requests: NO SPECIAL REQUESTS Culture result: NO GROWTH 6 DAYS CULTURE , BLOOD [[id number]] (Abnormal) Collected: 04/19/19 1005 Order Status: Completed S pecimen: Blood Updated: 04/22/19 0731 Special Requests: NO SPECIAL REQUESTS G ESCOBAR STAIN GRAM POSITIVE COCCI IN CLUSTERS ANAEROBIC BOTTLE CALLED TO AND READ MAIN K BY ROB LEDEZMA,RN, ED, 0960 ON 04/20/19 TORISMIRAGLIA Culture result: S TAPHYLOCOCCUS EPIDERMIDIS : Refer to previous culture(s) for susceptibilityresults CUL TURE, BLOOD [[id number]] (Abnormal) (Susceptibility) Collected: 5 Order Status: Completed Specimen: Blood Updated: 04/22/19 0729 Special Request s: NO SPECIAL REQUESTS GRAM STAIN GRAM POSITIVE COCCI IN CLUSTERS ANAEROBIC BOT TLE CALLED TO AND READ BACK BY ROB LEDEZMA, RN, ED, AT 0953 ON 04/20/19 TO [facility] Culture result: STAPHYLOCOCCUS EPIDERMIDISXR Results [...] MD04/20/2019 22:43 ESTM.D. Please call I magagustin Canal Structure Operator [phone] ([phone]) withquestions.This report was electronic ally signed by:Marcie [...] the procedure or anatomicalre gions you entered.Example: .BSHSILASTIMGCAT[LFR362:3This example wo uld display results for the last three orders with an externalprocedure ID of [id number] he patient is: [] acutely ill Risk [...] Supporting Document(s ) ID Date Data Source [id number] 04/28/2019 02:10:46 PM [facility] NUTRITIONNow intubated for resp failureR eceiving EN [...] critical illness using initial bedscale weight 58k-30 kcal/k-5181wyqw7.25-2gm prot/k-130gm bbml9vA fluid/kcal: 1450-1950mL fluidSuggest increasing Osmolite 1.5 by 10mL as tolerated to goal of 45mL/hr ubgu35fJ prostat tid (1920kcal, 113gm prot, 220gm CHO, 53gm fat, 823mL free H2O).Add 100mL free H2O Q 3hr if feasible given edema and need for lasix.Monitor GI tolerance to E N.Monitor volume status.Adjust EN as appropriate.Monitor propofol administrat ion for possible adjustment in kcal provision.Jo Espinoza RD Name Value Range Interpretation Code Description Data [facility] rce(s) Supporting Document(s ) ID Date Data Source [id number] 04/28/2019 02:10:41 PM [facility] Problem: Nutrition DeficitGoal: *Optimiz e nutritional statusDescriptionPt meeting 80% nutrient needs within 3-7 daysOutcome: N ot Progressing Towards GoalOsmolite 1.5 running at 25mL/hr.Suggest increasing Os molite 1.5 by 10mL as tolerated to goal of 45mL/hr hyxl61pL prostat tid. Add 100mL free H2O Q 3hr if feasible given edema and need forlasix. Name Value Range Interpretation Code Description Data Harriett rce(s) Supporting Document(s ) ID Date Data Source [id number] 04/28/2019 01:18:34 PM EST [facility] GI PROGRESS NOTENAME: Evelio Shukla hbeinDOB: 1950MRN: [id number]:C diff negative, + loose stools.Appears to be [...] hernia K44.9 COPD (chronic obstructive pulmonary disease) ([facility]) J44 .9 Acute respiratory distress R06.03 Pneumonia J18.9 COPD exacerbation ([facility]) J44.1 Sepsis due to undetermined organism ([facility]) A41.9 Generalized anxiety disorde r F41.1 Acute respiratory failure with hypoxia ([facility]) J96.01 Pneumonia involvin g right lung J18.9 Hyponatremia E87.1 SOB (shortness of breath) R06.02 Pressure i njury of right heel, stage 2 ([facility]) L89.612 Leg wound, right, initial encounter S81. 801A Acute hypoxemic respiratory failure (HCC) J96.01 COPD with acute exacerbati on ([facility]) J44.1 Acute on chronic respiratory failure with hypoxia and hypercapnia (HC C)J96.21, J96.22 Scrotal rash J18Htvdpizyvb: Asp PNA Problomatic J-tube over PEG - appears to be working again - ? Kink resolved?Plan: KUB x-ray Cont TF via c entral J-tube portion.Signed By: Diogo Collins MD 04/28/2019 1:16 PM Name Value Range Interpretation Code Description Data Harriett rce(s) Supporting Document(s ) ID Date Data Source [id number] 04/28/2019 11:45:26 AM EST [facility] ID Progress Note1/14/2020Subjective:PT t ransferred to ICU for respiratory failure s/p intubation, Pt havingdiarrhea, repeat C. Diff test was NEGATIVENo new eventEEG did not show any seizureAfebrileUS of UE and LE negative for DVTIntubated.Blood cx remain negativeResp cx with moderate GNR'sObjec tive:Review of SystemsPatient is unable to provideVitals:Patient Vitals for the pas t 24 hrs: BP Temp Pulse Resp VdL72204/28/19 1000 139/74 - 81 20 94 %04/28/19 [...] (porcine) injection 5,000 Units 5,000 Units SubCUTAneous A23INrhk:Recent Labs 04/27/200304/25/201110WBC 11.1* 7.7 9.2 10.1HGB 8. [...] isolation5. Follow blood and urine culturesMahlet Mireya [facility] 20200217 AM Name Value Range Interpretation Code Description Data Harriett rce(s) Supporting Document(s ) ID Date Data Source [id number] 04/28/2019 09:42:09 AM [facility] Progress Note, renal and medicineEmanuel Tmriiukov29 y.o.Admit Date: 04/19/2019Subjective:Patient transferred t o ccu [...] 125 mg 125 mg Per G Tube D6TDjxmybMonica severino MD 125 mg at 0511 meropenem (MERREM) 500 mg in 0.9% sodium chloride (MBP/ADV) 50 mL MBP 0.5 gIntraVENous Q12H Monica Gomez MD 16.7 mL/hr at 04/28/19 0915 500 mg at04/28/19 0915 lamoTRIgine (LaMICtal) tablet 100 mg 100 mg Per G Tube QPM Roberto Burgos MD100 mg at 04/27/19 1738 methylPREDNISolone (PF) (SOLU-MEDROL) injection 40 mg 40 mg Int raVENous A7BJoqdtdKrystian helms MD 40 mg at 04/28/19 0516 [...] 1 Tab Oral Q4HPRN Krystian Monae MD 1 Tab at 04/27/19 23 [...] Exam:Physical Exam:General: intubatedNeck: SuppleLungs: Scattered rhonchiHeart: S1, T3Jmwlvpt: Soft, non-tender. Bowel sounds normal. No mass es, No organomegaly.Extremities: EdemaData Review:CBC w/DiffRecent Labs 04/28/2002 29 04/27/200320 04/26/200330WBC 11.1* 7.7 9.2RBC 2.90* 3.15* 2.89*HGB 8.8* 9.6* 8. 8*HCT 27.6* 30.0* 27.7*MCV 95.2* 95.2* 95.8*MCH 30.3 30.5 30.4MCHC 31.9 32.0 31 .8RDW 17.8* 17.9* 17.9* Recent Labs 04/28/200229 04/25/2011885975LOLZA 1* -- 13*EOS 0 -- 1BASOS 0 [...] hernia K44.9 COPD (chronic obstructive pulmonary disease) ([facility]) J44.9 Acute re spiratory distress R06.03 Pneumonia J18.9 COPD exacerbation ([facility]) J44.1 Sepsis du e to undetermined organism ([facility]) A41.9 Generalized anxiety disorder F41.1 Acut e respiratory failure with hypoxia ([facility]) J96.01 Pneumonia involving right lung J 18.9 Hyponatremia E87.1 SOB (shortness of breath) R06.02 Pressure injury of right heel, stage 2 ([facility]) L89.612 Leg wound, right, initial encounter S81.801A Acute hypoxemic respiratory failure (HCC) J96.01 COPD with acute exacerbation ([facility]) J44.1 Acute on chronic respiratory failure with hypoxia and hypercapnia (HCC)J96.21, J96 .22 Scrotal rash R34cfiptbvwk vascular congestionBilateral pleural effusionPLAN : D/c ivf Lasix Continue merem 500 mg BID vanco oral, no need to check level imp roving kidney function Monitor labs Check urine studies Cont abx Further recomme ndations will be based on the patient's response to recommendedtreatment and res ults of the investigation ordered.Oralia Frankel MD04/28/201912:59 PM Name Value Range Interpretation Code Description Data [facility] Supporting Document(s ) ID Date Data Source [id number] 04/28/2019 09:25:17 AM EST [facility] AP portable film of the chest [...] Name Value Range Interpretation Code Description Data [facility] rce(s) Supporting Document(s ) ID Date Data Source [id number] 04/28/2019 09:06:15 AM EST [facility]ado JERMAINE [address]ZJFOTUI: EVELIO CARLINMRN: [id number]: 1ACCT#: [id number] DATE: 04/19/2019LONG TERM MONITORING VIDEO EEG REFERRING [...] Digital analysis was performed employing an artificial neuralTaste Guruwork program with parameterization and statistical analysis. Analysis [...] ANALYSIS: Variable spectral pattern without signif icant ctui-hx-wvidcykffejqzvjt. Spikes were artifact in nature.IMPRESSION: This is an abnormal long-term monitoring video electroencephalogramin the awake and asl eep states due to mild diffuse or multifocal cerebraldysfunction. ALKA GAELAS, ROSEMARYD: #04/27/2019 9:09:30/SS /[email or web address] #: [id number] / [id number] Name Value Range Interpretation Code Description Data Harriett rce(s) Supporting Document(s ) ID Date Data Source [id number] 04/28/2019 07:33:19 AM EST [facility] Bedside and Verbal shift change report carol Ortiz RN (oncoming nurse) Danielle (offgoing nurse). Report included the fo llowing information SBAR,Kardex, Procedure Summary, Intake/Output, MAR, Accordion, Recent Results, MedRec Status and Cardiac Rhythm nsr. Name Value Range Interpretation Code Description Data Harriett rce(s) Supporting Document(s ) ID Date Data Source [id number] 04/28/2019 06:23:55 AM EST [facility] - [facility] Name Value Range Interpretation Description Data Sup porting Code Source(s) Document(s ) pH of Arterial 7.46 7.35-7.4 Above high normal [facility] - Good blood [address] [place] [address] Carbon dioxide 39 mmHg 32-48 [facility] - [facility] [Partial Zoroastrianism pressure] in Hospital Arterial blood Oxygen 111 mmHg 83-108 Above high normal [facility] - Good [Partial Zoroastrianism pressure] in Hospital Arterial blood Carbon 29 19-24 Above high normal [facility] - Good dioxide, total mmol/L Zoroastrianism [Moles/volume] [facility] in Arterial blood Bicarbonate 28 21-28 [facility] - Good [Moles/volume] mmol/L Zoroastrianism in Arterial Hospital blood Oxygen 99 % 94-98 Above high normal [facility] - Good saturation in Zoroastrianism Blood [facility] Base excess in 3.7 0-3 Above high normal [facility] - Good Arterial blood mmol/L Zoroastrianism by calculation Hospital Body site [facility] Arterial [facility] - Good patency Wrist Zoroastrianism artery --pre Hospital arterial puncture Oxygen gas [facility] - Good flow Oxygen Zoroastrianism delivery [facility] system Oxygen/Inspire 40.0 % [facility] - Good d gas Zoroastrianism Respiratory [facility] system --on ventilator Ventilation [facility] - Good mode Zoroastrianism [Identifier] [facility] Ventilator PEEP 5 [facility] - Good Respiratory Zoroastrianism system Hospital Tidal volume 400 [facility] - Good setting [facility]astrianism Ventilator Hospital Respiratory 18 [facility] - Good rate [facility] Service [address] [facility] - Good comment [facility] ID Date Data Source [id number] 04/28/2019 06:03:53 AM EST [facility] Name Value Range Interpretation Description Data Sup porting Code Source(s) Document(s ) Leukocytes 11.1 4.8-10.6 Above high normal [facility] - [#/volume] in K/uL Good Blood by Zoroastrianism Automated count Hospital Erythrocytes 2.90 4.70-6.0 Below low normal [facility] - [#/volume] in M/uL 0 Good Blood by [facility] count [facility] Hemoglobin 8.8 g/dL 14.0-18. Below low normal [facility] - [Mass/volume] in 0 Good Blood [facility] Hematocrit 27.6 % 42.0-52. Below low normal [facility] - [Volume 0 Good Fraction] of Zoroastrianism Blood by Hospital Automated count Erythrocyte mean 95.2 FL 81.0-94. Above high normal [facility] - corpuscular 0 Good volume [Entitic Zoroastrianism volume] by Hospital Automated count Erythrocyte mean 30.3 PG 27.0-35. [facility] - corpuscular 0 Good hemoglobin Zoroastrianism [Entitic mass] Hospital by Automated count Erythrocyte mean 31.9 30.7-37. [facility] - corpuscular g/dL 3 Good hemoglobin [facility] [Mass/volume] by Automated count Erythrocyte 17.8 % 11.5-14. Above high normal [facility] - distribution 0 Good width [Ratio] by Zoroastrianism Automated count [facility] Platelets 524 K/uL 130-400 Above high normal [facility] - [#/volume] in [facility] Blood by Zoroastrianism Automated count [facility] Platelet mean 9.5 FL 9.2-11.8 [facility] - volume [Entitic Good volume] in Blood Zoroastrianism by Automated Hospital count Nucleated 0.0 PER 0 [facility] - erythrocytes/100 100 WBC Good leukocytes Zoroastrianism [Ratio] in Blood [facility] Nucleated 0.00 0.0-0.01 [facility] - erythrocytes K/uL Good [#/volume] in [facility] Segmented 92 % 48.0-72. Above high normal [facility] - neutrophils/100 [address] [facility] Lymphocytes/100 6 % 18.0-40. Below low normal [facility] - leukocytes in 0 [facility] Blood [facility] Monocytes/100 1 % 2.0-12.0 Below low normal [facility] - leukocytes in Good Blood [facility] Eosinophils/100 0 % 0.0-7.0 [facility] - leukocytes in [facility] Basophils/100 0 % 0.0-3.0 [facility] - leukocytes in [facility] Immature 1 % 0-0.5 Above high normal [facility] - granulocytes/100 Good leukocytes in [facility] by Hospital Automated count Segmented 10.3 2.3-7.6 Above high normal [facility] - neutrophils K/UL Good [#/volume] in [facility] Lymphocytes 0.7 K/UL 0.9-4.2 Below low normal [facility] - [#/volume] in [facility] Monocytes 0.1 K/UL 0.1-1.7 [facility] - [#/volume] in [facility] Eosinophils 0.0 K/UL 0.0-1.0 [facility] - [#/volume] in [facility] Basophils 0.0 K/UL 0.0-0.4 [facility] - [#/volume] in [facility] Immature 0.1 K/UL 0.0-0.17 [facility] - granulocytes Good [#/volume] in [facility] by Hospital Automated count Differential [facility] - cell count [facility] ID Date Data Source [id number] 04/28/2019 05:41:52 AM EST [facility] - [facility] Name Value Range Interpretation Description Data Sup porting Code Source(s) Document(s ) Sodium 139 136-145 [facility] - [Moles/volume] in mmol/L [facility] or [facility] Potassium 3.7 3.5-5.1 [facility] - [Moles/volume] in mmol/L [facility] Serum [facility] Chloride 107 98-107 [facility] - [Moles/volume] in mmol/L [facility] Carbon dioxide, 28 21-32 [facility] - total mmol/L Good [Moles/volume] in [facility] or [facility] Anion gap in Serum 7 10-20 Below low normal [facility] - or Plasma mmol/L [facility] Glucose 149 74-106 Above high [facility] - [Mass/volume] in mg/dL normal [facility] Hospital Urea nitrogen 35 7-18 Above high [facility] - [Mass/volume] in mg/dL normal Good Serum or Plasma [facility] Creatinine 1.98 0.70-1. Above high [facility] - [Mass/volume] in mg/dL 30 normal Good Serum or Plasma [facility] Glomerular 43 >60 Below low normal [facility] - filtration ml/min/ Good rate/1.73 sq M 1.73m2 Zoroastrianism predicted among Hospital blacks [Volume Rate/Area] in Serum or Plasma by Creatinine-based formula (MDRD) Glomerular 36 >60 Below low normal [facility] - filtration ml/min/ Good rate/1.73 sq M 1.73m2 Zoroastrianism predicted among Hospital non-blacks [Volume Rate/Area] in Serum or Plasma by Creatinine-based formula (MDRD) Calcium 9.2 8.5-10. [facility] - [Mass/volume] in mg/dL 1 Good Serum or Plasma [facility] Bilirubin.total 0.2 0.2-1.0 [facility] - [Mass/volume] in mg/dL Good Serum or Plasma [facility] Alanine 8 U/L 13-61 Below low normal [facility] - aminotransferase Good [Enzymatic Zoroastrianism activity/volume] in Hospital Serum or Plasma Aspartate 9 U/L 15-37 Below low normal [facility] - aminotransferase Good [Enzymatic Zoroastrianism activity/volume] in Hospital Serum or Plasma by With P-5'-P Alkaline 63 U/L 45-117 [facility] - phosphatase Good [Enzymatic Zoroastrianism activity/volume] in Hospital Serum or Plasma Protein 5.4 6.4-8.2 Below low normal [facility] - [Mass/volume] in g/dL Good Serum or Plasma [facility] Albumin 1.5 3.5-4.7 Below low normal [facility] - [Mass/volume] in g/dL Good Serum or Plasma by Zoroastrianism Bromocresol [facility] (BCP) dye binding method Globulin 3.9 1.7-4.7 [facility] - [Mass/volume] in g/dL Good Serum by [facility] Albumin/Globulin 0.4 0.7-2.8 Below low normal [facility] - [Mass Ratio] in Good Serum or Plasma [facility] ID Date Data Source [id number] 04/28/2019 05:41:52 AM EST [facility] Good [facility] Name Value Range Interpretation Description Data Sup porting Code Source(s) Document(s ) Magnesium 2.5 mg/dL 1.6-2.6 [facility] [Mass/volume] Zoroastrianism in Serum or Hospital Plasma ID Date Data Source [id number] 04/27/2019 05:16:54 PM EST [facility] Progress NotePatient: Evelio Carlin Sex: male DOA: 04/19/2019Date of : 1950 A ge: 68 y.o. :[id number]:Reyes Carlin is 68 y.o. male s/p intubation [...] supra therapeutic levels.The patient had presented from [facility] with fever, hypoxia, O2 SAT 83 %,hypoten [...] sheath in situ. Through the sheatha 5 Emirati double-lumen 20 cm midl ine catheter was placed. The peel-away sheathwas removed. The catheter was sewn into position using 2-0 silk sutures. Thepatient tolerated the procedure. Ther e were no complications at the time of theprocedure. FINDINGS: Ultrasound inter rogation revealed a widely patent brachialvein above the antecubital fossa . A 5 Emirati dual-lumen 20 cm midline catheterwas placed. The tip was placed i n good position over the right axillary vein.IMPRESSION: 5 Emirati dual-lumen mid line catheter placed with tip positioned overthe right axillary vein.Ct Chest Abd Pelv Wo ContResult Date: 04/20/2019Referring Physician: MILI HILLS Patient Name: EVELIO CARLIN FINAL REPORTFROM IMAGING RESIDENTIAL SALES REPRESENTATIVE EXAM: CT chest without contrast and CT [...] 04/20/2019 22:43 GINA VerdePlease call Katjadevang berger Canal Structure Operator [phone]) with questions. This reportwas electronically signed by: [...] are identified that would besuspicious for, or vaccine customer representative of DVT.IMPRESSION : 1. No sonographic findings suggestive of thrombosis within thevisualized portions of the deep venous system of the left upper extremity.Duplex Upper Ext Venous RightR esult Date: 04/26/2019RIGHT UPPER EXTREMITY DOPPLER HISTORY: Pain and swelling. High -resolution linearsonography of the right upper extremity was performed using [place] r Doppler Flowand Duplex Doppler Spectral sonography. [...] (porcine) injection 5,000 Units 5,000 Units SubCUTAneous Z49SAsackdcbnp/Plan:Hospita l Problems Date Reviewed: 04/26/2019 Codes Class Noted POA Scrotal rash ICD-1 0-CM: P49GQH-6-EI: 782.1 04/21/2019 Yes COPD with acute exacerbation [...] xanax q hs, substitution for the nonformulary sea captain TranxeneSwitch to Ativ an 1mg via peg q hs IV vancomycin was DC'dContinue zosyn per IDF/u results of C DiffMonitor bun/creatIV fluids per renalContinue nebulizersSurgery f/uRepla ce potassiumNutrition supplementsF/u repeat culturesDuncan Gonzalez 20Time: 11:38 PM Name Value Range Interpretation Code Description Data Harriett rce(s) Supporting Document(s ) ID Date Data Source [id number] 04/27/2019 01:33:07 PM EST [facility] - [facility] Critical Care Progress N [facility]Krystian Monae MD., F.C.C.P.Stella Hamilton MD., F.C.C.P. [address] [place] [address] [place] [address] Name: Evelio JohnsoninDOB: 1950MRN: [id number]: 04/27/2019Subjective:Mr. 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) Pneumonia Psychiatric disorder schizophrenia Pulmonary emboli ([facility]) S chizophrenia ([facility])Allergy:No Known AllergiesVital Signs:Patient Vitals for the past 24 hrs: BP Temp Pulse Resp SpO2 Qvucqx03/13/20 1300 136/59 - 98 20 99 % [...] (cm H2O): 9PEEP/VENT (cm H2O): 5 cm Z11Dqci Rate Tidal Volume Pre ssure FiO2 PEEPPRVC 400 ml 50 % 5 cm O35Yxhu airway pressure: 17 cm U5FHmngpt ventilation: 7.7 l/minARDS network Guidelines: Lung protective strategy and Pl pressure goals 17 CMSless than or equal to 30Physical Exam:ORAL INTUBATION , COL OR IS GOOD , PATIENT IS COMFORTABLE General: LETHARGIC , cooperative, CA LD RESPIRATORY distress,appears stated age. Head: Normocephalic, [...] (porcine) injection 5,000 Units 5,000 Units SubCUTAneous Q17YXpjrugclj: [x]Sinus []A -flutter []Paced []A-fib []Multiple PVC'sLabs:Recent [...] volume 400 RATE 18 Per formed by [id number] Collection Time: 04/27/19 4:20 AMResult Value Ref [...] Component Value Units Date/Time C. DIFFICILE (DNA) [[id number]] Collected: 04/27/19 0915 Order Status: Completed Specimen: Stool Updated: 1246 C. difficile (DNA) NEGATIVE Comment: This specimen is negative for t oxigenic C difficile by DNAamplification. Repeat testing is not recommended for co nfirmation, samplesreceived within 7 days of this negative result will be rejected. C ULTURE, RESPIRATORY/SPUTUM/BRONCH W GRAM STAIN [[id number]] Collected:04/26/19 170 0 Order Status: Completed Specimen: Sputum from Tracheal Aspirate Updated:04/27/19 0704 C. DIFFICILE (DNA) [[id number]] (Abnormal) Collected: 04/25/19 1715 Ord er Status: Completed Specimen: Stool Updated: 04/26/19 1551 C. difficile (D NA) TEST RESULT IS INCONCLUSIVE. PLEASE SUBMIT A NEW SPECIMEN FOR ANALYSIS. CULT URE, URINE [[id number]] Collected: 04/25/19 1147 Order Status: Completed Specimen: Urine from Clean catch Updated: Special Requests: NO SPECI AL REQUESTS Culture result: NO GROWTH 1 DAY C. DIFFICILE (DNA) [[id number]] Order Sta tus: Sent Specimen: Stool CULTURE, BLOOD [[id number]] Collected: 04/25/19 1210 Or bassem Status: Completed Specimen: Blood Updated: 04/26/19 08 Special Request s: NO SPECIAL REQUESTS Culture result: NO GROWTH AFTER 19 HOURS CULTURE, BLOOD [[id number]] Collected: 04/25/19 1205 Order Status: Completed Specimen: Blood Upda mikel: 04/26/19 08 Special Requests: NO SPECIAL REQUESTS Culture result: NO HAIDER WTH AFTER 19 HOURS CULTURE, BLOOD [[id number]] Collected: 04/20/19 1440 Order Status: Completed Specimen: Blood Updated: 04/26/19 08 Special Requests: NO SPEC IAL REQUESTS Culture result: NO GROWTH 6 DAYS CULTURE, BLOOD [[id number]] Collecte d: 04/20/19 1447 Order Status: Completed Specimen: Blood Updated: 04/26/19 0818 Special Requests: NO SPECIAL REQUESTS Culture result: NO GROWTH 6 DAYS CULTURE , BLOOD [[id number]] (Abnormal) Collected: 04/19/19 1005 Order Status: Completed S pecimen: Blood Updated: 04/22/19 0731 Special Requests: NO SPECIAL REQUESTS G ESCOBAR STAIN GRAM POSITIVE COCCI IN CLUSTERS ANAEROBIC BOTTLE CALLED TO AND READ MAIN K BY ROB LEDEZMA RN, ED, 0953 ON 04/20/19 TORISMIRAGLIA Culture result: S TAPHYLOCOCCUS EPIDERMIDIS : Refer to previous culture(s) for susceptibilityresults CUL TURE, BLOOD [[id number]] (Abnormal) (Susceptibility) Collected: 04/19/20091 5 Order Status: [...] MD04/20/2019 22:43 GINA Jenkins. Please call Imaging Canal Structure Operator [phone]) withquestions.T his report was electronically signed by:Marcie Edge MD 04/20/2019 10:44 PMImages:[email or web address] SmartLink requires a parameter for processing. Parameters are variableswhich can be added to the original SmartLink name. This allows you to reque stspecific information by giving the SmartLink precise direction.The [facility] TIMGCAT SmartLink accepts (as a parameter) an [...] the procedure or anatomicalre gions you entered.Example: .BSHSILASTIMGCAT[LWD254:3This example wo uld display results for the last three orders with an externalprocedure ID of [id number].T he patient is: [] acutely ill Risk [...] 2.59. BACTEREMIA G + COCCI - STAPH [id number]. SEVERE MAL NUTRITION ,11. ALB = 1.4 SEVERE INOUNAMFELXKQCT00. POSSIBLE 2 CM SEGMENT OF TUBE IN [...] ON BED SIDE , SHE AGREES FOR [id number]. TRANSFER TO [facility] - DISCUSSED WITH ALEXANDR [...] TRACHEOBRONCHIAL SECTERTIONS8. CHEST PT9. PROGNOSIS I S [id number]. CONT SAME TREATMENT TODAY11. CHEST P T TO MOBILIZE SECRETIONS My assessment, plan of care, findings, medications, side effects etc werediscus sed with:[x]nursing []PT/OT[x]respiratory therapy [x]Dr. AHUMADA[x]family []Critic al Care Provided 60 minutes non procedure based.Krystian Monae MD F.C.C.P. Name Value Range Interpretation Code Description Data Harriett rce(s) Supporting Document(s ) ID Date Data Source [id number] 04/27/2019 10:18:25 AM [facility] Janell Schneider MD[address], [address] JERMAINE babb [id number].[facility] NEUROLOGY FOLLOW-UP NOTEPatient: Evelio Carlin Sex: male [...] NaCl infusion 50 mL/hr IntraVENous CONTINUOUS pantoprazole (PA OTONIX) 40 mg in 0.9% sodium chloride [...] (porcine) injection 5,000 Units 5,000 Units SubCUTAneous M03TFakeza of Systems:Unable to assess secondary to me [...] reconstructivetec hnique.THIS DOCUMENT HAS BEEN ELECTRONICALLY SIGNEDFrsofia Edeg MD04/20/2019 22:43 GINA Jenkins. Please call Imaging Canal Structure Operator [phone]) withquestions.T his report was electronically signed by:Marcie Edge MD 04/20/2019 10:44 PMMRI Results (most recent):No results found for this or any previous visit.Assessment:Problem Kiay lucero Date Reviewed: 04/26/2019 Codes Class Noted [...] Leg wound, right, initial encounter ICD-10-CM: S81. 603YEQS-3-AH: 894.0 02/09/2019 SOB (shortness of breath) ICD-10-CM: [...] disconnect Continue medical mx reconsult neurology as lbukcs01 minutes of direct patient careJanell Schneider MDJanuary 2019Ext. 8808 Name Value Range Interpretation Code Description Data Harriett rce(s) Supporting Document(s ) ID Date Data Source [id number] 04/27/2019 10:11:51 AM EST [facility] GI PROGRESS NOTENAME: Evelio Johnson inDOB: 1950MRN: [id number]:Events noted. Patient is now intubatedHe is tolerating [...] hernia K44.9 COPD (chronic obstructive pulmonary disease) ([facility]) J44 .9 Acute respiratory distress R06.03 Pneumonia J18.9 COPD exacerbation ([facility]) J44.1 Sepsis due to undetermined organism ([facility]) A41.9 Generalized anxiety disorde r F41.1 Acute respiratory failure with hypoxia ([facility]) J96.01 Pneumonia involvin g right lung J18.9 Hyponatremia E87.1 SOB (shortness of breath) R06.02 Pressure i njury of right heel, stage 2 ([facility]) L89.612 Leg wound, right, initial encounter S81. 801A Acute hypoxemic respiratory failure ([facility]) J96.01 COPD with acute exacerbati on ([facility]) J44.1 Acute on chronic respiratory failure with hypoxia and hypercapnia (HC C)J96.21, J96.22 Scrotal rash R87Icqqyxvpos: J tube Via PEG - currently functioning Respiratory failure Diarrhea - possible C diffPlan: Continue TFs as tolerated Co ntinue PO vancoSigned By: Marly Amaya MD 04/27/2019 10:08 AM Name Value Range Interpretation Code Description Data Harriett rce(s) Supporting Document(s ) ID Date Data Source [id number] 04/27/2019 12:46:56 PM EST [facility] Name Value Range Interpretation Description Data Sup porting Code Source(s) Document(s ) Clostridium NEG [facility] difficile toxin Zoroastrianism genes [[facility] Hospital in Stool by Probe and target amplification method This specimen is negative for toxigenic C difficile by DNA amplification. Repeat testing is not recommended for confirm ion, samples received within 7 days of this negative result will be rejected. ID Date Data Source [id number] 04/27/2019 09:00:37 AM EST [facility] ID Progress Note04/27/2019Subjective:PT t ransferred to ICU for respiratory failure s/p intubation, Pt havingdiarrhea, C. Diff t est was inconclusiveAfebrileUS of UE and LE negative for DVTUA is negativeS/p remova l of PICC lineIntubated and on EEG monitoring .Blood cx remain negativeObjective:Revie w of SystemsPatient is unable to provideVitals:Patient Vitals for the pas t 24 hrs: BP Temp Pulse Resp SpO2 Lqqjub73/13/20 0815 - - 78 19 100 % [...] (porcine) injection 5,000 Units 5,000 Units SubCUTAneous Y32EIjjj:Recent Labs 04/26/200304/25/200424WBC 7.7 9.2 10.1 --HGB 9.6* [...] Supporting Document(s ) ID Date Data Source [id number] 04/27/2019 07:48:37 AM [facility] Progress NoteEmanuel Pxcghtokp22 y.o.Adm it Date: 04/19/2019Subjective:Patient transferred to ccu [...] (SOLU-MEDROL) injection 40 mg 40 mg IntraVENous L3HAoiswgKrystian helms MD 40 mg at 04/27/19 0650 [...] 2 % cream Topical BID Crapella, Zuly, DIMMER BOARD OPERATOR sodium chloride (NS) flush 5-10 mL 5-10 mL IntraVENous PRN OlmoNeeta ames, DIMMER BOARD OPERATOR budesonide (PULMICORT ) 500 mcg/2 ml nebulizer suspension 500 mcg NebulizationBID RT Krystian Monae MD 5 00 mcg at 04/26/19 2052 cinacalcet (SENSIPAR) tablet 60 mg 60 mg Oral KYLEIGH Y [place], DOStopped at 04/26/19 0900 heparin (porcine) injection 5,000 Units 5,000 Units SubCUTAneous Q12H [place], DO 5,000 Units at 04/15 07/02 0650Physical Exam:Physical Exam:General: intubatedNeck: SuppleLungs: Scattered rhonchiHeart: S1, Q0Kkekuwj: Soft, non-tender. Bowel sounds normal. No mass es, No organomegaly.Extremities: EdemaData Review:CBC w/DiffRecent Labs 04/27/200304/26/200304/25/201110WBC 7.7 9.2 10.1RBC 3.15* 2.89* 3.02*HGB 9.6* 8.8* 9 .2*HCT 30.0* 27.7* 29.8*MCV 95.2* 95.8* 98.7*MCH 30.5 30.4 30.5MCHC 32.0 31.8 30 .9RDW 17.9* 17.9* 18.0* Recent Labs 04/25/2011616549VGMUE -- -- 13*EOS -- -- 1BASOS -- -- 0RDW 17.9* < > 18.0* < > = values in this i nterval not displayed. Lab ResultsComponent Value Date/Time PLATELET 542 (H) 020 04:20 AMComprehensive Metabolic ProfileRecent Labs [id number] 04/25/2004NA 139 -- 142 -- 143K 3.9 -- 3.6 -- 3.4*CL 1 06 -- 108* -- 107CO2 27 31* 29 < > 34*BUN 35* -- 33* -- 28*CREA 2.29* -- 2.05* -- 1.82* < > = values in this interval not displayed. Recent Labs 01/ 13/059612 01/12/174000 01/11/061461ND 9.1 8.9 9.0PHOS 3.3 2.2* 2.6ALB 1.5* 1.4* 1.5*X- RAY (Last 24 Hours)No results found.IMPRESSION:Patient Active Problem ListDiagnosis Code 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 COPD (chronic obstructive pulmonary disease) ([facility]) J44.9 Acute respiratory distress R06.03 Pneumonia J 18.9 COPD exacerbation ([facility]) J44.1 Sepsis due to undetermined organism ([facility] [facility]) A41.9 Generalized anxiety disorder F41.1 Acute respiratory failure with hypoxia ([facility]) J 96.01 Pneumonia involving right lung J18.9 Hyponatremia E87.1 SOB (shortness of br eath) R06.02 Pressure injury of right heel, stage 2 ([facility]) L89.612 Leg wound, right, initial encounter S81.801A Acute hypoxemic respiratory failure ([facility]) J96.01 COPD w ith acute exacerbation ([facility]) J44.1 Acute on chronic respiratory failure with hypoxia and hypercapnia ([facility])J96.21, J96.22 Scrotal rash I17UTTN: Cont ivf Worsening kidne y function Monitor labs Check urine studies Cont abx Further recommendations will be based on the patient's response to recommendedtreatment and results of the investigation ordered.Oralia Frankel MD04/27/201912:59 PM Name Value Range Interpretation Code Description Data [facility](s) Supporting Document(s ) ID Date Data Source [id number] 04/27/2019 07:28:15 AM [facility] Reviewed Ventilator Settings with onc oming RT Rylie Ivan, Settings, Weaning , Transports. Ventilator wiped d own with bleachwipes.Ezequiel Duke RT Name Value Range Interpretation Code Description [facility] Document[facility] ) ID Date Data Source [id number] 04/27/2019 07:18:26 AM [facility] Bedside and Verbal shift change report carol pham to Katie Rojas, RN (oncoming nurse) Laura Subramanian,NANCY (offgoing nurse). NSR . Report given with SBAR, Kardex, Intake/Output, MAR,Accordion and Recent Results. Name Value Range Interpretation Code Description Data [facility](s) Supporting Document(s ) ID Date Data Source [id number] 04/27/2019 05:50:31 AM EST [facility] Name Value Range Interpretation Description Data Sup porting Code Source(s) Document(s ) Leukocytes 7.7 K/uL 4.8-10.6 [facility] - [#/volume] in Good Blood by [facility] Automated count Hospital Erythrocytes 3.15 4.70-6.0 Below low normal [facility] - [#/volume] in M/uL 0 Good Blood by [facility] Automated count Hospital Hemoglobin 9.6 g/dL 14.0-18. Below low normal [facility] - [Mass/volume] in 0 Good Blood [facility] Hematocrit 30.0 % 42.0-52. Below low normal [facility] - [Volume 0 Good Fraction] of Zoroastrianism Blood by Hospital Automated count Erythrocyte mean 95.2 FL 81.0-94. Above high normal [facility] - corpuscular 0 Good volume [Entitic Zoroastrianism volume] by Hospital Automated count Erythrocyte mean 30.5 PG 27.0-35. [facility] - corpuscular 0 Good hemoglobin [facility]ism [Entitic mass] Hospital by Automated count Erythrocyte mean 32.0 30.7-37. [facility] - corpuscular g/dL 3 Good hemoglobin Zoroastrianism concentration [facility] [Mass/volume] by Automated count Erythrocyte 17.9 % 11.5-14. Above high normal [facility] - distribution 0 Good width [Ratio] by [facility]astrianism Automated count Hospital Platelets 542 K/uL 130-400 Above high normal [facility] - [#/volume] in Good Blood by [facility]astrianism Automated count Hospital Platelet mean 9.5 FL 9.2-11.8 [facility] - volume [Entitic Good volume] in Blood [facility]astrianism by Automated Hospital count Nucleated 0.0 PER 0 [facility] - erythrocytes/100 100 WBC Good leukocytes [facility]rianism [Ratio] in Blood Hospital Nucleated 0.00 0.0-0.01 [facility] - erythrocytes K/uL Good [#/volume] in Zoroastrianism Blood [facility] ID Date Data Source [id number] 04/27/2019 05:35:01 AM EST [facility] Name Value Range Interpretation Description Data Sup porting Code Source(s) Document(s ) Sodium 139 136-145 [facility] - Good [Moles/volume] mmol/L [facility]ism in Serum or Hospital Plasma Potassium 3.9 3.5-5.1 [facility] [Moles/volume] mmol/L [facility]ism in Serum or Hospital Plasma Chloride 106 98-107 [facility] - [facility] [Moles/volume] mmol/L [facility]rianism in Serum or Hospital Plasma Carbon 27 21-32 [facility] - Good dioxide, total mmol/L [facility]rianism [Moles/volume] Hospital in Serum or Plasma Anion gap in 10 10-20 [facility] - Good Serum or mmol/L [facility]ism Plasma Hospital Glucose 186 74-106 Above high normal [facility] - Good [Mass/volume] mg/dL [facility]astrianism in Serum or Hospital Plasma Urea nitrogen 35 mg/dL 7-18 Above high normal [facility] - Good [Mass/volume] Zoroastrianism in Serum or Hospital Plasma Creatinine 2.29 0.70-1.3 Above high normal [facility] - Goo d [Mass/volume] mg/dL 0 [facility]astrianism in Serum or Hospital Plasma Glomerular 37 >60 Below low normal [facility] - Good filtration ml/min/1 Zoroastrianism rate/1.73 sq M .73m2 Hospital predicted among blacks [Volume Rate/Area] in Serum or Plasma by Creatinine-bas ed formula (MDRD) Glomerular 30 >60 Below low normal [facility] - Good filtration ml/min/1 Zoroastrianism rate/1.73 sq M .73m2 Hospital predicted among non-blacks [Volume Rate/Area] in Serum or Plasma by Creatinine-bas ed formula (MDRD) Calcium 9.1 8.5-10.1 [facility] - Good [Mass/volume] mg/dL [facility]astrianism in Serum or Hospital Plasma Phosphate 3.3 2.5-4.9 [facility] - Good [Mass/volume] mg/dL [facility]astrianism in Serum or Hospital Plasma Albumin 1.5 g/dL 3.5-4.7 Below low normal [facility] Good [Mass/volume] Zoroastrianism in Serum or Hospital Plasma by Bromocresol purple (BCP) dye binding method ID Date Data Source [id number] 04/27/2019 05:35:01 AM EST [facility] Name Value Range Interpretation Description Data Sup porting Code Source(s) Document(s ) Magnesium 2.4 mg/dL 1.6-2.6 [facility] [Mass/volume] Zoroastrianism in Serum or Hospital Plasma ID Date Data Source [id number] 04/26/2019 07:12:41 PM [facility] Reviewed Ventilator Settings with onc edgardoing RT Clemencia Phillips.Alarms, Settings, Weaning , Transports. Ventilator wiped d own with bleachwipes.Hoa Sanders, BIAS MACHINE OPERATOR, RT, NM, ARRT Name Value Range Interpretation Code Description Data [facility](s) Supporting Document(s ) ID Date Data Source [id number] 04/26/2019 06:41:08 PM [facility] Bedside and Verbal shift change report carol Ibarra (oncoming nurse) Mel (offgoing nurse). Report included the fo llowing information SBAR, Kardex,Intake/Output and MAR. Name Value Range Interpretation Code Description Data [facility] rce(s) Supporting Document(s ) ID Date Data Source [id number] 04/29/2019 10:51:45 AM [facility] Name Value Range Interpretation Code Description Data [facility] rce(s) Supporting Document(s ) Service [facility] 10-25 WBC/lpf<10 EPI/lpfFEWGRAM POSITIVE RODSMODERATEPSEUDOMONAS AERUGINOSA ID Date Data Source [id number] 04/29/2019 10:51:45 AM [facility] Name Value Range Interpretation Code Description Data Supporting Source(s) Document(s ) Ceftazidime 16 ug/mL Specimen in lab; [facility] - [Susceptibility] results pending Good by Minimum [facility]rianism inhibitory Hospital concentration ([facility]) Ciprofloxacin 1 ug/mL Susceptible. [facility] - [Susceptibility] Indicates for Good by Minimum microbiology Zoroastrianism inhibitory susceptibilities Hospital concentration only. ([facility]) Gentamicin Susceptible. [facility] - [Susceptibility] Indicates for Good by Minimum microbiology [facility]oroastrianism inhibitory susceptibilities Hospital concentration only. ([facility]) Tobramycin Susceptible. [facility] - [Susceptibility] Indicates for Good by Minimum microbiology Zoroastrianism inhibitory susceptibilities Hospital concentration only. ([facility]) Cefepime 8 ug/mL Specimen in lab; [facility] - [Susceptibility] results pending Good by Minimum [facility] Hospital concentration ([facility]) ID Date Data Source [id number] 04/26/2019 04:26:46 PM EST [facility] Name Value Range Interpretation Description Data Sup porting Code Source(s) Document(s ) pH of Arterial 7.46 7.35-7.4 Above high normal [facility] - Good blood 5 [facility] Carbon dioxide 41 mmHg 32-48 [facility] - Good [Partial Zoroastrianism pressure] in Hospital Arterial blood Oxygen 96 mmHg 83-108 [facility] - Good [Partial Zoroastrianism pressure] in Hospital Arterial blood Carbon 31 19-24 Above high normal [facility] - Good dioxide, total mmol/L [facility]rianism [Moles/volume] Hospital in Arterial blood Bicarbonate 29 21-28 Above high normal [facility] - Go od [Moles/volume] mmol/L [facility]oroastrianism in Arterial Hospital blood Oxygen 98 % 94-98 [facility] - [facility] saturation in [facility] Base excess in 4.9 0-3 Above high normal [facility] - Good Arterial blood mmol/L [facility]oroastrianism by calculation Hospital Body site [facility] Arterial [facility] - [facility] patency Wrist Zoroastrianism artery --pre Hospital arterial puncture Oxygen gas [facility] - [facility] flow Oxygen [facility]astrianism delivery Hospital system Oxygen/Inspire 50.0 % [facility] - Good d gas [facility]rianism Respiratory Hospital system --on ventilator Ventilation [facility] - [facility] mode [facility]oroastrianism [Identifier] Hospital Ventilator PEEP 5 [facility] - [facility] Respiratory [facility]astrianism system Hospital Tidal volume 400 [facility] - Good setting [facility]oroastrianism Ventilator Hospital Respiratory 18 [facility] - Good rate [facility] Service [address] [facility] - Good comment [facility] ID Date Data Source [id number] 04/26/2019 04:16:55 PM EST [facility] Daily Progress NoteSurgical ICU NoteS/O: 68 male with Parkinson's and today with Respiratory distress and ET Tubeplaced. Pt is sedated and on ventilator. [facility] EEG monitor in place. Discussed wit [...] 2.5 MG-0.5 MG/3 ML, 3 mL, Nebulization, [id number], Mili Hills DO, 3 mL at 04/26/19 1340 acetylcysteine (MUCOMYST) 100 mg/mL (10 %) nebulizer solution 400 mg, 4 mL,Inhalation, TID RT, Mili Hills DO, 400 mg at 04/26/19 1340 miconazole (MICOTIN) 2 % cream, , Topical, BID, Zuly Bailey, DIMMER BOARD OPERATOR sodium chloride (NS) flush 5-10 mL, 5-10 mL, IntraVENous, PRN, Akash zNeeta,DIMMER BOARD OPERATOR budesonide (PULMICORT) 500 mcg/2 ml nebulizer suspension, [...] PRESSURE SUPPORT 14 RATE 16 Performed by [id number] , 12 LEAD, INITIAL Collection Time: 04/25/19 8:51 PMResult Value Ref Range Ventricula r Rate 96 BPM Atrial Rate 96 BPM P-R Interval 138 ms QRS Duration 80 ms Q-T Interval 3 42 ms QTC Calculation (Bezet) 432 ms Calculated P [place] 52 degrees Calculated R [place] 51 degrees Calculated T [place] 43 degrees Diagnosis Normal sinus rhythmNo rmal [...] volume 400 RATE 18 Per formed by [id number] W/O DIFF Collection Time: 04/26/19 4:30 AMResult [...] Supporting Document(s ) ID Date Data Source [id number] 04/26/2019 02:57:59 PM EST [facility] Critical Care Progress [facility]Krystian Monae MD., F.C.C.P.Stella Hamilton MD., F.C.C.P. [address] [place] [address] [place] [address] Name: Evelio JohnsoninDOB: 1950MRN: [...] 24 hrs : BP Temp Pulse Resp [id number]/26/19 1400 127/60 - 83 18 94 %04/26/19 [...] (cm H2O): 9PEEP/VENT (cm H2O): 5 cm [id number] Rate Tidal Volume Pre ssure FiO2 PEEPPRVC 400 ml 50 % 5 cm Y41Tuea airway pressure: 17 cm [id number] ventilation: 7.4 l/minARDS network Guidelines: Lung protective [...] S UPPORT 14 RATE 16 Performed by [id number], 12 LEAD, INITIAL Collection Time: 04/25/19 8:51 PMResult Value Ref Range Ventricular Rate 96 BPM Atrial Rate 96 BPM P-R Inter seema 138 ms QRS Duration 80 ms Q-T Interval 342 ms QTC Calculation (Bezet) 432 ms Ca lculated P [place] 52 degrees Calculated R [place] 51 degrees Calculated T [place] 43 degrees Diagnosis Normal sinus rhythmNormal ECGWhen [...] Tidal volume 400 RATE 18 Performed by [id number] W/O DIFF Collection Time: 04/26 4:30 AMResult [...] Procedure Component Value Units Date/Time CULTURE, URINE [[id number]] Col lected: 04/25/19 1147 Order Status: Completed Specimen: Urine from Clean ca tch Updated: Special Requests: NO SPECIAL REQUESTS Culture result: NO GROWTH 1 DAY C. DIFFICILE (DNA) [[id number]] Collected: 04/25/19 1715 Order Status: Completed Specimen: Stool Updated: 04/26/19 1036 CULTURE, RESPIRATORY/SPUTU M/BRONCH W GRAM STAIN [[id number]] Order Status: Sent Specimen: Sputum from Tra cheal Aspirate C. DIFFICILE (DNA) [[id number]] Order Status: Sent Specimen: Stool CUL TURE, BLOOD [[id number]] Collected: 04/25/19 1210 Order Status: Completed Specimen: Blood Updated: 04/26/19 08 Special Requests: NO SPECIAL REQUESTS Culture r esult: NO GROWTH AFTER 19 HOURS CULTURE, BLOOD [[id number]] Collected: 04/25/19 1 205 Order Status: Completed Specimen: Blood Updated: 04/26/19 08 Special Request s: NO SPECIAL REQUESTS Culture result: NO GROWTH AFTER 19 HOURS CULTURE, BLOOD [[id number]] Collected: 04/20/19 1440 Order Status: Completed Specimen: Blood Upda mikel: 04/26/19817 Special Requests: NO SPECIAL REQUESTS Culture result: NO HAIDER WTH 6 DAYS CULTURE, BLOOD [[id number]] Collected: 04/20/19 1447 Order Status: Completed Specimen: Blood Updated: 04/26/19817 Special Requests: NO SPEC IAL REQUESTS Culture result: NO GROWTH 6 DAYS CULTURE, BLOOD [[id number]] (Abnorm al) Collected: 04/19/19 1005 Order Status: Completed Specimen: Blood Updated: 12/02 0731 Special Requests: NO SPECIAL REQUESTS GRAM STAIN GRAM POSITIVE COCC I IN CLUSTERS ANAEROBIC BOTTLE CALLED TO AND READ BACK BY ROB LEDEZMA,RN, ED, 0935 ON 04/20/19 TORISMIRAGLIA Culture result: STAPHYLOCOCCUS EPIDERMIDIS : Refer to p revious culture(s) for susceptibilityresults CULTURE, BLOOD [[id number]] (Abnormal) (Susceptibility) Collected: Order Status: Completed Specimen: [...] MD04/20/2019 22:43 GINA Jenkins. Please call Imaging Canal Structure Operator [phone]) withquestions.T his report was electronically signed by:Marcie [...] the procedure or anatomicalre gions you entered.Example: .BSHSILASTIMGCAT[[id number] example wo uld display results for the last three orders with an externalprocedure ID of [id number] he patient is: [] acutely ill Risk [...] P.10. BACTEREMIA G + COCCI - STAPH TCAXLSESJHR00. SEVERE MAL NUTRITION ,12. ALB = 1.4 SEVERE HY AYCNYIOPGPTSU04. POSSIBLE 2 CM SEGMENT OF TUBE IN [...] NOT CLEARED FOR SURGERY DUE TO RESPIRATORY ESGQSKFD92. DISCUSSED WITH DR HILLS ON BED SIDE , SHE AGREES FOR [id number]. TRANSFER TO [facility] WITH MISS STRANGE RN IN ICU [...] Supporting Document(s ) ID Date Data Source [id number] 04/26/2019 01:03:00 PM [facility] Progress NoteEmanuel Mwexqgeii36 y.o.Adm it Date: 04/19/2019Subjective:Patient transferred to ccu [...] 125 mg 125 mg Per G Tube W2EPrifeyMonica severino MD 125 mg at 04/26/19 1238 [...] Exam:Physical Exam:General: intubatedNeck: SuppleLungs: Scattered rhonchiHeart: S1, U0Zqrkjgo: Soft, n on-tender. Bowel sounds normal. No masses, No organomegaly.Extremities: EdemaData R eview:CBC w/DiffRecent Labs 04/25/201110WBC 9.2 10.1RBC 2.89* 3.02*H GB 8.8* 9.2*HCT 27.7* 29.8*MCV 95.8* 98.7*MCH 30.4 30.5MCHC 31.8 30.9RDW 17.9* 18.0* R ecent Labs 04/25/2011548955HKPDU -- 13*EOS -- 1BASOS -- 0RDW 17.9* [...] hernia K44.9 COPD (chronic obstructive pulmonary disease) ([facility]) J44.9 Acute re spiratory distress R06.03 Pneumonia J18.9 COPD exacerbation ([facility]) J44.1 Sepsis du e to undetermined organism ([facility]) A41.9 Generalized anxiety disorder F41.1 Acut e respiratory failure with hypoxia ([facility]) J96.01 Pneumonia involving right lung J 18.9 Hyponatremia E87.1 SOB (shortness of breath) R06.02 Pressure injury of right heel, stage 2 ([facility]) L89.612 Leg wound, right, initial encounter S81.801A Acute hypoxemic respiratory failure ([facility]) J96.01 COPD with acute exacerbation ([facility]) J44.1 Acute on chronic respiratory failure with hypoxia and hypercapnia ([facility])J96.21, J96 .22 Scrotal rash R21 PLAN: Cont ivf Monitor labs Check urine studies Cont abx Further recommendations will be based on the patient's response to recommendedtre atment and results of the investigation ordered.James Iverson MD04/26/201912:59 P M Name Value Range Interpretation Code Description Data [facility] rce(s) Supporting Document(s ) ID Date Data Source [id number] 04/26/2019 12:46:57 PM EST [facility] Roberto Burgos MD[address], [address] JERMAINE babb [id number].[facility] NEUROLOGY FOLLOW-UP NOTEPatient: Evelio Carlin Sex: male [...] Fredi04/20/2019 22:43 ESTM.D. Please call I maging Canal Structure Operator [phone] ([phone]) withquestions.This report was electronic ally signed by:Marcie Edge MD 04/20/2019 10:44 PMMRI Results (most recent):No res ults found for this or any previous visit.Assessment:Problem List Date Revi ewed: 04/25/2019 Codes Class Noted Scrotal rash ICD-10-CM: F77VVJ-8-FJ: 782 .1 04/21/2019 COPD with acute exacerbation (HCC) ICD-10-CM: J44.1ICD-9-CM: 491.21 04/19/2019 Acute on chronic respiratory failure with hypoxia and hypercapnia (HCC)ICD-10 -CM: J96.21, J96.22ICD-9-CM: 518.84, 786.09, 799.02 04/19/2019 Acute hypoxemic respira tory failure (HCC) ICD-10-CM: J96.01ICD-9-CM: 518.81 03/25/2019 Pressure injury of ri ght heel, stage 2 (HCC) ICD-10-CM: L89.612ICD-9-CM: 707.07, 707.22 019 Leg wound, right, initial encounter ICD-10-CM: S81.012ZRZH-3-JC: 894.0 01/14 SOB (shortness of breath) ICD-10-CM: R06.02ICD-9-CM: 786.05 02/08/2019 Acute respiratory failure with hypoxia (HCC) ICD-10-CM: J96.01ICD-9-CM: 518.81 2018 Pneumonia involving right lung ICD-10-CM: J18.9ICD-9-CM: 486 01/10/2019 Hyponatremia ICD-10-CM: E87.1ICD-9-CM: 276.1 01/10/2019 Generalized anxiety disorder (Chronic) ICD-10-CM: F41.1ICD-9-CM: 300.02 12/30/2018 Sepsis due to undetermined org anism ([facility]) ICD-10-CM: A41.9ICD-9-CM: 038.9 12/12/2018 COPD (chronic obstructive pulm onary disease) ([facility]) ICD-10-CM: J44.9ICD-9-CM: 496 11/08/2018 Acute resp iratory distress ICD-10-CM: R06.03ICD-9-CM: 518.82 11/08/2018 Pneumonia ICD-10-CM: J 18.9ICD-9-CM: 486 11/08/2018 COPD exacerbation ([facility]) ICD-10-CM: J44.1ICD-9 -CM: 491.21 11/08/2018 Paraesophageal hiatal hernia ICD-10-CM: K44.9ICD-9-CM: 553.3 09/26/2015Plan: 68 yr old M with tremor, fever, staph sepsis, resp failure. Cont inue Lamictal 50-100 24 hr EEG25 minutes of direct patient careDavid MD [facility] 2019[facility]37 PMExt. 8808 Name Value Range Interpretation Code Description Data Harriett rce(s) Supporting Document(s ) ID Date Data Source [id number] 04/26/2019 09:39:25 AM EST [facility] ID Progress Note04/26/2019Subjective:PT t ransferred to [...] t 24 hrs: BP Temp Pulse Resp JxX27404/26/19 0900 95/57 - 86 18 96 %04/26/19 [...] (MBP/ADV) 100mL MBP 3.375 g In traVENous Q0VZbep:Recent Labs 04/25/201104/24/200535WB C 9.2 10.1 -- --HGB [...] Name Value Range Interpretation Code Description Data [facility](s) Supporting Document(s ) ID Date Data Source [id number] 04/26/2019 08:20:11 AM EST [facility] LEFT LOWER EXTREMITY DOPPLERHistory: Justus n [...] Supporting Source(s) Document(s ) IMP IMPRESSION: No [facility] evidence of Zoroastrianism deep vein Hospital thrombosis. Suboptimal study. Signing date/time: 04/26/2019 8:20 AMSi gned by: LIONEL LOCKHART ID Date Data Source [id number] 04/26/2019 08:18:51 AM EST [facility] RIGHT UPPER EXTREMITY DOPPLERHISTORY: Pa in [...] Supporting Document(s ) ID Date Data Source [id number] 04/26/2019 08:07:46 AM [facility] CHEST ONE VIEWHISTORY: Intubation.COMPAR GARTH: Previous studies.The [...] Supporting Document(s ) ID Date Data Source [id number] 04/26/2019 07:28:25 AM [facility] SBAR endorsed to Lucinda Sutherland RN Name Value Range Interpretation Code Description Data [facility]ett rce(s) Supporting Document(s ) ID Date Data Source [id number] 04/26/2019 06:49:08 AM EST [facility] MD Reinier phoned CCU nurses station; r equested and received update onpatient's condition. No new orders or change in o rders. Name Value Range Interpretation Code Description Data Harriett rce(s) Supporting Document(s ) ID Date Data Source [id number] 04/26/2019 05:40:46 AM [facility] Pt intubated at bedside upon admission t [...] Supporting Document(s ) ID Date Data Source [id number] 04/26/2019 05:46:43 AM [facility] Name Value Range Interpretation Description Data Sup porting Code Source(s) Document(s ) Lactate 1.1 0.4-2.0 [facility] - [facility] [Moles/volu MMOL/L [facility]] in Hospital Serum or Plasma ID Date Data Source [id number] 04/26/2019 05:47:53 AM [facility] Name Value Range Interpretation Description Data Sup porting Code Source(s) Document(s ) Sodium 142 136-145 [facility] - [facility] [Moles/volume] mmol/L [facility] in Serum or Hospital Plasma Potassium 3.6 3.5-5.1 [facility] - [facility] [Moles/volume] mmol/L [facility]ism in Serum or Hospital Plasma Chloride 108 98-107 Above high normal [facility] - [facility] [Moles/volume] mmol/L [facility]ism in Serum or Hospital Plasma Carbon 29 21-32 [facility] - Good dioxide, total mmol/L [facility] [Moles/volume] Hospital in Serum or Plasma Anion gap in 8 mmol/L 10-20 Below low normal [facility] - Go od Serum or [facility]oroastrianism Plasma Hospital Glucose 91 mg/dL 74-106 [facility] - [facility] [Mass/volume] Zoroastrianism in Serum or Hospital Plasma Urea nitrogen 33 mg/dL 7-18 Above high normal [facility] - Good [Mass/volume] Zoroastrianism in Serum or Hospital Plasma Creatinine 2.05 0.70-1.3 Above high normal [facility] - Goo d [Mass/volume] mg/dL 0 [facility]ism in Serum or Hospital Plasma Glomerular 42 >60 Below low normal [facility] - Good filtration ml/min/1 Zoroastrianism rate/1.73 sq M .73m2 Hospital predicted among blacks [Volume Rate/Area] in Serum or Plasma by Creatinine-bas ed formula (MDRD) Glomerular 34 >60 Below low normal [facility] - Good filtration ml/min/1 [facility]rianism rate/1.73 sq M .73m2 Hospital predicted among non-blacks [Volume Rate/Area] in Serum or Plasma by Creatinine-bas ed formula (MDRD) Calcium 8.9 8.5-10.1 [facility] - Good [Mass/volume] mg/dL [facility]rianism in Serum or Hospital Plasma Phosphate 2.2 2.5-4.9 Below low normal [facility] - Good [Mass/volume] mg/dL [facility]astrianism in Serum or Hospital Plasma Albumin 1.4 g/dL 3.5-4.7 Below low normal [facility] - [facility] [Mass/volume] [facility]oroastrianism in Serum or Hospital Plasma by Bromocresol purple (BCP) dye binding method ID Date Data Source [id number] 04/26/2019 05:47:53 AM EST [facility] Name Value Range Interpretation Description Data Sup porting Code Source(s) Document(s ) Magnesium 2.5 mg/dL 1.6-2.6 [facility] - [facility] [Mass/volume] Zoroastrianism in Serum or Hospital Plasma ID Date Data Source [id number] 04/26/2019 05:39:52 AM EST [facility] Name Value Range Interpretation Description Data Sup porting Code Source(s) Document(s ) Leukocytes 9.2 K/uL 4.8-10.6 [facility] - [#/volume] in Good Blood by Zoroastrianism Automated count [facility] Erythrocytes 2.89 4.70-6.0 Below low normal [facility] - [#/volume] in M/uL 0 Good Blood by Zoroastrianism Automated count [facility] Hemoglobin 8.8 g/dL 14.0-18. Below low normal [facility] - [Mass/volume] in 0 Good Blood [facility] Hematocrit 27.7 % 42.0-52. Below low normal [facility] - [Volume 0 Good Fraction] of Zoroastrianism Blood by Hospital Automated count Erythrocyte mean 95.8 FL 81.0-94. Above high normal [facility] - corpuscular 0 Good volume [Entitic Zoroastrianism volume] by Hospital Automated count Erythrocyte mean 30.4 PG 27.0-35. [facility] - corpuscular 0 Good hemoglobin Zoroastrianism [Entitic mass] Hospital by Automated count Erythrocyte mean 31.8 30.7-37. [facility] - corpuscular g/dL 3 Good hemoglobin Zoroastrianism concentration Hospital [Mass/volume] by Automated count Erythrocyte 17.9 % 11.5-14. Above high normal [facility] - distribution 0 Good width [Ratio] by Zoroastrianism Automated count Hospital Platelets 502 K/uL 130-400 Above high normal [facility] - [#/volume] in [facility] Blood by Zoroastrianism Automated count Hospital Platelet mean 9.3 FL 9.2-11.8 [facility] - volume [Entitic Good volume] in Blood Zoroastrianism by Automated Hospital count Nucleated 0.0 PER 0 [facility] - erythrocytes/100 100 WBC Good leukocytes Zoroastrianism [Ratio] in Blood [facility] Nucleated 0.00 0.0-0.01 [facility] - erythrocytes K/uL Good [#/volume] in [facility] ID Date Data Source [id number] 04/25/2019 10:17:52 PM EST [facility] - [facility] TRANSFER - OUT REPORT:Verbal report give n to NANCY Lloyd(name) on Evelio Carlin being transferredto CCU(unit) [...] Supporting Document(s ) ID Date Data Source [id number] 04/25/2019 10:15:22 PM EST [facility] - G ood [facility] Name Value Range Interpretation Description Data Sup porting Code Source(s) Document(s ) pH of Arterial 7.41 7.35-7.4 [facility] - Good blood [address] [place] [address] Carbon dioxide 52 mmHg 32-48 Above high normal [facility] - Good [Partial Zoroastrianism pressure] in Hospital Arterial blood Oxygen 114 mmHg 83-108 Above high normal [facility] - Good [Partial Zoroastrianism pressure] in Hospital Arterial blood Carbon 35 19-24 Above high normal [facility] - Good dioxide, total mmol/L Zoroastrianism [Moles/volume] Hospital in Arterial blood Bicarbonate 33 21-28 Above high normal [facility] - Go od [Moles/volume] mmol/L Zoroastrianism in Arterial Hospital blood Oxygen 99 % 94-98 Above high normal [facility] - Good saturation in [facility] Base excess in 6.9 0-3 Above high normal [facility] - Good Arterial blood mmol/L Zoroastrianism by calculation Hospital Body site [facility] - Good [facility] Arterial [facility] - Good patency Wrist Zoroastrianism artery --pre Hospital arterial puncture Oxygen gas [facility] - Good flow Oxygen [facility] system Oxygen/Inspire 60.0 % [facility] - Good d gas Zoroastrianism Respiratory Hospital system --on ventilator Ventilation [facility] - Good mode Zoroastrianism [Identifier] [facility] Ventilator PEEP 5 [facility] - Good Respiratory Zoroastrianism system Hospital Tidal volume 400 [facility] - Good setting Zoroastrianism Ventilator Hospital Respiratory 18 [facility] - Good rate [facility] Service 64889 [facility] - Good comment [facility] ID Date Data Source [id number] 04/25/2019 07:40:54 PM EST [facility] CASE DISCUSSED WITH DR LAURA Navarro [phone] AND TRACHEOSTOMY FOR PULMONARY TOILET IS OK WITH HI M Name Value Range Interpretation Code Description Data Harriett rce(s) Supporting Document(s ) ID Date Data Source [id number] 04/25/2019 07:35:43 PM EST [facility] CHEST one viewHISTORY: Pneumonia. COPD.C OMPARISON: [...] Supporting Document(s ) ID Date Data Source [id number] 04/25/2019 07:33:20 PM EST [facility] Bedside and Verbal shift change report Marni Edge RN(oncoming nurse) by Kendra Vazquez RN (offgoing nurs e). Report included thefollowing information SBAR, Kardex, ED Summary, Procedure Summ connor,Intake/Output, MAR, Recent Results and Med Rec Status. Name Value Range Interpretation Code Description Data [facility] rce(s) Supporting Document(s ) ID Date Data Source [id number] 04/25/2019 07:24:48 PM [facility] Review BIPAP settings, alarms and use of skin adhesive with next shift RT BrandyKennedy Respiratory equipment wipe d clean with Bleach Sani Wipes as perdepartment policyAlbert C Andres , RT Name Value Range Interpretation Code Description Data [facility] rce(s) Supporting Document(s ) ID Date Data Source [id number] 04/25/2019 06:31:03 PM [facility] Progress NoteMID-[facility] ,[facility].Krystian Monae MD., F.C.C.P.Stella Hamilton MD., F.C.C.P. [address] [place] [id number] [place] [address] [phone]: Evelio Carlin Sex: male DOA: [...] problems. Past Medical History:Diagnosis Date Chronic obstruct britni [...] for c ough, sputum production, SOB, wheezing, ADVALOS,pleuritic painCardiology: negative for chest pain, palpitations, orthopnea, [...] 24 hrs: BP Temp Pulse Resp SpO2 Wixwrb5604/25 1521 136/82 98.8 F (37.1 C) 81 [...] Component Value Units Date/Time Emanuel HINTON (DNA) [[id number]] Order Status: Sent Specimen: Stool CULTURE, BLOOD [[id number]] Collected: 04/25/19 1205 Order Status: Completed Specimen: Blood Updated: 03/04 1305 CULTURE, BLOOD [[id number]] Collected: 04/25/19 1210 Order Status: Completed Specimen: Blood Updated: 04/25/19 1305 CULTURE, URINE [[id number]] Collected: 04/25/19 1147 Order Status: Completed Specimen: Urine from Clean ca tch Updated: CULTURE, BLOOD [[id number]] Collected: 04/20/19 1447 Or bassem Status: Completed Specimen: Blood Updated: 04/24/19 0632 Special Request s: NO SPECIAL REQUESTS Culture result: NO GROWTH 4 DAYS CULTURE, BLOOD [[id number]] Collected: 04/20/19 1440 Order Status: Completed Specimen: Blood Updated: 02/0132 Special Requests: NO SPECIAL REQUESTS Culture result: NO GROWTH 4 DA YS CULTURE, BLOOD [[id number]] (Abnormal) Collected: 04/19/19 1005 Order Status: Completed Specimen: Blood Updated: 04/22/19 0731 Special Requests: NO SPEC IAL REQUESTS GRAM STAIN GRAM POSITIVE COCCI IN CLUSTERS ANAEROBIC BOTTLE CALLED TO AND READ BACK BY ROB LEDEZMA RN, ED, 0953 ON 04/20/19 TORISMIRAGLIA Culture re sult: STAPHYLOCOCCUS EPIDERMIDIS : Refer to previous culture(s) for susceptibilityre sults CULTURE, BLOOD [[id number]] (Abnormal) (Susceptibility) Collected: 04/19/20091 5 Order Status: [...] sheath in situ. Through the sheatha 5 Emirati double-lumen 20 cm midl ine catheter was placed. The peel-away sheathwas removed. The catheter was sewn into position using 2-0 silk sutures. Thepatient tolerated the procedure. Ther e were no complications at the time of theprocedure. FINDINGS: Ultrasound inter rogation revealed a widely patent brachialvein above the antecubital fossa . A 5 Emirati dual-lumen 20 cm midline catheterwas placed. The tip was placed i n good position over the right axillary vein.IMPRESSION: 5 Emirati dual-lumen mid line catheter placed with tip positioned overthe right axillary vein.Ct Chest Abd Pelv Wo ContResult Date: 04/20/2019Referring Physician: MILI HILLS Patient Name: EVELIO CARLIN FINAL REPORTFROM IMAGING RESIDENTIAL SALES REPRESENTATIVE EXAM: CT chest without contrast and CT [...] 04/20/2019 22:43 GINA VerdePlease call Katja berger Canal Structure Operator [phone] with questions. This reportwas electronically signed by: [...] identified that w ould besuspicious for, or vaccine customer representative of DVT.IMPRESSION: 1. No sonographic findin [...] chloride (MBP/ADV) 100mL MBP 3.375 g IntraVENous [id number] Problems: Pneumonia (11/08/2018) Acute hypoxemic respiratory failure [...] ON BED SIDE , SHE AGREES FOR [id number]. TRANSFER TO [facility] - DISCUSSED WITH MISS ALEXANDR PITTS IN ICU Krystian Monae MD F.C.C.P.April 1520196:12 PM Name Value Range Interpretation Code Description Data Harriett rce(s) Supporting Document(s ) ID Date Data Source [id number] 04/25/2019 06:25:08 PM EST [facility] Dr. Monae requested ABG performed today and tomorrow. Name Value Range Interpretation Code Description Data Harriett rce(s) Supporting Document(s ) ID Date Data Source [id number] 04/25/2019 06:21:34 PM EST [facility] - [facility] Name Value Range Interpretation Description Data Sup porting Code Source(s) Document(s ) pH of Arterial 7.46 7.35-7.4 Above high normal [facility] - Good blood 5 [facility] Carbon dioxide 46 mmHg 32-48 [facility] - Good [Partial Zoroastrianism pressure] in Hospital Arterial blood Oxygen 118 mmHg 83-108 Above high normal [facility] - Good [Partial Zoroastrianism pressure] in Hospital Arterial blood Carbon 34 19-24 Above high normal [facility] - Good dioxide, total mmol/L Zoroastrianism [Moles/volume] Hospital in Arterial blood Bicarbonate 33 21-28 Above high normal [facility] - Go od [Moles/volume] mmol/L Zoroastrianism in Arterial Hospital blood Oxygen 99 % 94-98 Above high normal [facility] - Good saturation in Zoroastrianism Blood [facility] Base excess in 7.7 0-3 Above high normal [facility] - Good Arterial blood mmol/L Zoroastrianism by calculation Hospital Body site [facility] - Good [facility] Arterial [facility] - Good patency Wrist Zoroastrianism artery --pre Hospital arterial puncture Oxygen gas [facility] - Good flow Oxygen [facility] system Oxygen/Inspire 45.0 % [facility] - Good d gas Zoroastrianism Respiratory [facility] system --on ventilator Ventilation [facility] - Good mode Zoroastrianism [Identifier] [facility] Ventilator PEEP 7 [facility] - Good Respiratory Zoroastrianism system Hospital Pressure 14 [facility] - Good support [facility] Hospital Ventilator Respiratory 16 [facility] - Good rate [facility] Service 505[address] [facility] - Good comment [facility] ID Date Data Source [id number] 04/25/2019 05:17:16 PM EST [facility] - Good [facility] Roberto Burgos MD[address] Centern[place]oleBUT[place], [place] [id number].[facility] NEUROLOGY FOLLOW-UP NOTEPatient: Evelio Carlin Sex: male DOA: 04/19/2019Date of : 1950 Age: 68 y.o. LOS: LOS: 6 daysSubjective complaints: Spoke with Dr. Reinier cano who said pt had severetremors. This was seen by Dr. Rolan puente yesterday who did not feel these wereseizures.History: 68 yr old [place], hypoxia, hypotension, tachypnea.On BIPAP - can't have EEG. Has history of static encephalopathy. 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 Please call Imaging Canal Structure Operator [phone]) withquestions.T his report was electronically signed by:Marcie [...] Leg wound, right, initial encounter ICD-10-CM: S81. 307PSNV-3-AF: 894.0 02/09/2019 SOB (shortness of breath) ICD-10-CM: [...] Supporting Document(s ) ID Date Data Source [id number] 04/26/2019 03:51:42 PM EST [facility] Name Value Range Interpretation Description Data Sup porting Code Source(s) Document(s ) Clostridium NEG Abnormal (applies [facility] - Go od diff[facility] [Presence] results) Hospital in Stool by Probe and target amplification method ID Date Data Source [id number] 04/25/2019 04:58:40 PM EST [facility] Progress NotePatient: Evelio Carlin Sex: male DOA: 04/19/2019Date of : 1950 A ge: 68 y.o. :[id number]:Reyes Carlin is 68 y.o. male who is [...] r/o w EEG.The patient had presented from [facility] with fev er, hypoxia, O2 SAT 83 [...] sheath in situ. Through the sheatha 5 Emirati double-lumen 20 cm midl ine catheter was placed. The peel-away sheathwas removed. The catheter was sewn into position using 2-0 silk sutures. Thepatient tolerated the procedure. Ther e were no complications at the time of theprocedure. FINDINGS: Ultrasound inter rogation revealed a widely patent brachialvein above the antecubital fossa . A 5 Emirati dual-lumen 20 cm midline catheterwas placed. The tip was placed i n good position over the right axillary vein.IMPRESSION: 5 Emirati dual-lumen mid line catheter placed with tip positioned overthe right axillary vein.Ct Chest Abd Pelv Wo ContResult Date: 04/20/2019Referring Physician: MILI HILLS Patient Name: EVELIO JOHNSONTAMMY FINAL REPORTFROM IMAGING RESIDENTIAL SALES REPRESENTATIVE EXAM: CT chest without contrast and CT [...] 04/20/2019 22:43 GINA MKevin.Please call Katja robert Canal Structure Operator [phone] with questions. This reportwas electronically signed by: [...] identified that w ould besuspicious for, or vaccine customer representative of DVT.IMPRESSION: 1. No sonographic findin [...] chloride (MBP/ADV) 100mL MBP 3.375 g IntraVENous E7WWcshndripu/Plan:Hospital Problems Da te Reviewed: 04/25/2019 Codes Class [...] xanax q hs, substitution for the nonformulary sea captain TranxeneSwitch to Ativ an 1mg via peg q hs IV vancomycin was DC'dContinue zosyn per IDVenous duplex rue and left LEIV fluids per renalPulmonary f/uVoiding trialContinue nebulizersSurge ry f/uReplace potassiumNutrition F/u repeat culturesShirronni HillsJeweluary 20Time: 4:26 PM Name Value Range Interpretation Code Description Data Harriett rce(s) Supporting Document(s ) ID Date Data Source [id number] 04/25/2019 04:24:09 PM [facility] Progress NotePatient: Evelio Carlin Sex: male DOA: 04/19/2019Date of : 1950 A ge: 68 y.o. :[id number]:Reyes Carlin is 68 y.o. male who is [...] r/o w EEG.The patient had presented from [facility] with fever, hypoxia, O2 SAT 83 %,hypotensive, [...] in the last 72 tammy rs.CULTURE, BLOOD [[id number]] (Order [id number])MicrobiologyDate: 04/19/2019 Dep artment: [facility] 3[facility] Med Surg Released By/Authorizing: Neeta Coleman [...] ant ANTONIO FinalLab and CollectionCULTURE, BLOOD (Order: [id number]) - 04/19/2019CULTURE, BL OOD [[id number]] (Order [id number])MicrobiologyDate: 04/20/2019 Dep artment: [facility] 3t Med Surg Released By/Authorizing: Monica Gomez MD (auto- released)Specimen Information: Blood Component Value Flag Ref Range Units Sta tusSpecial Requests: PreliminaryNO SPECIAL REQUESTSCulture result: NO GROWT H 4 DAYS PreliminaryLab and CollectionCULTURE, BLOOD (Order: [id number]) - 04/20/2019Result HistoryCULTURE, BLOOD (Order #[id number]) on 04/24/2019 - Order Result History ReportXr [...] sheath in situ. Through the sheatha 5 Emirati double-lumen 20 cm midl ine catheter was placed. The peel-away sheathwas removed. The catheter was sewn into position using 2-0 silk sutures. Thepatient tolerated the procedure. Ther e were no complications at the time of theprocedure. FINDINGS: Ultrasound inter rogation revealed a widely patent brachialvein above the antecubital fossa . A 5 Emirati dual-lumen 20 cm midline catheterwas placed. The tip was placed i n good position over the right axillary vein.IMPRESSION: 5 Emirati dual-lumen mid line catheter placed with tip positioned overthe right axillary vein.Ct Chest Abd Pelv Wo ContResult Date: 04/20/2019Referring Physician: MILI HILLS Patient Name: EVELIO CARLIN FINAL REPORTFROM IMAGING RESIDENTIAL SALES REPRESENTATIVE EXAM: CT chest without contrast and CT [...] 04/20/2019 22:43 GINA VerdePlease call Katjadevang berger Canal Structure Operator [phone] with questions. This reportwas electronically signed by: [...] identified that w ould besuspicious for, or vaccine customer representative of DVT.IMPRESSION: 1. No sonographic findin [...] chloride (MBP/ADV) 100mL MBP 3.375 g IntraVENous K6TKqqmvhietv/Plan:Hospital Problems Da te Reviewed: 04/21/2019 Codes Class Noted POA Scrotal rash ICD-10-CM: G08LZL-7-LC: 782.1 04/21/2019 Yes COPD with acute exacerbation [...] Supporting Document(s ) ID Date Data Source [id number] 04/25/2019 01:17:25 PM [facility] Progress NoteEmanuel Snrtmqmec62 y.o.Adm it Date: 04/19/2019Subjective:Patient lethargicReview of systems [...] distressNeck: SuppleLungs: Clear to au scultationHeart: S1, E5Yzmcjet: Soft, non-tender. Bowel sounds normal. No mass [...] K44.9 COPD (chronic obstr uctive pulmonary disease) ([facility]) J44.9 Acute respiratory distress R06.03 Pneumonia J 18.9 COPD exacerbation ([facility]) J44.1 Sepsis due to undetermined organism ([facility]) A41.9 Generalized anxiety disorder F41.1 Acute respiratory failure with hypoxia ([facility]) J 96.01 Pneumonia involving right lung J18.9 Hyponatremia E87.1 SOB (shortness of br eath) R06.02 Pressure injury of right heel, stage 2 ([facility]) L89.612 Leg wound, right, initial encounter S81.801A Acute hypoxemic respiratory failure ([facility]) J96.01 COPD w ith acute exacerbation ([facility]) J44.1 Acute on chronic respiratory failure with hypoxia and hypercapnia (HCC)J96.21, J96.22 Scrotal rash R21 PLAN: Increase ivf Monitor l abs Monitor bun/creat Further recommendations will be based on the pat ient's response to recommendedtreatment and results of the investigation ordered.Toni Iverson MD04/25/20191:14 PM Name Value Range Interpretation Code Description Data Harriett rce(s) Supporting Document(s ) ID Date Data Source [id number] 04/30/2019 01:52:07 PM EST [facility] Name Value Range Interpretation Description Data Sup porting Code Source(s) Document(s ) Service comment BSS - [facility] Bacteria BSS [facility] identified in Zoroastrianism Unspecified Hospital specimen by Culture ID Date Data Source [id number] 04/25/2019 03:54:29 PM EST [facility] Name Value Range Interpretation Description Data Sup porting Code Source(s) Document(s ) Leukocytes 10.1 4.8-10.6 [facility] - [#/volume] in K/uL Good Blood by Zoroastrianism Automated count [facility] Erythrocytes 3.02 4.70-6.0 Below low normal [facility] - [#/volume] in M/uL 0 Good Blood by Zoroastrianism Automated count [facility] Hemoglobin 9.2 g/dL 14.0-18. Below low normal [facility] - [Mass/volume] in 0 Good Blood [facility] Hematocrit 29.8 % 42.0-52. Below low normal [facility] - [Volume 0 Good Fraction] of Zoroastrianism Blood by Hospital Automated count Erythrocyte mean 98.7 FL 81.0-94. Above high normal [facility] - corpuscular 0 Good volume [Entitic Zoroastrianism volume] by Hospital Automated count Erythrocyte mean 30.5 PG 27.0-35. [facility] - corpuscular 0 Good hemoglobin Zoroastrianism [Entitic mass] [facility] by Automated count Erythrocyte mean 30.9 30.7-37. [facility] - corpuscular g/dL 3 Good hemoglobin [facility] [Mass/volume] by Automated count Erythrocyte 18.0 % 11.5-14. Above high normal [facility] - distribution 0 Good width [Ratio] by Zoroastrianism Automated count [facility] Platelets 503 K/uL 130-400 Above high normal [facility] - [#/volume] in [facility] Blood by Zoroastrianism Automated count Hospital Platelet mean 9.1 FL 9.2-11.8 Below low normal [facility] - volume [Entitic Good volume] in Blood Zoroastrianism by Automated Hospital count Nucleated 0.0 PER 0 [facility] - erythrocytes/100 100 WBC Good leukocytes Zoroastrianism [Ratio] in Blood [facility] Nucleated 0.00 0.0-0.01 [facility] - erythrocytes K/uL Good [#/volume] in [facility] Segmented 72 % 48.0-72. [facility] - neutrophils/100 [address] Good leukocytes in [facility] Lymphocytes/100 13 % 18.0-40. Below low normal [facility] - leukocytes in 0 [facility] Monocytes/100 13 % 2.0-12.0 Above high normal [facility] - leukocytes in [facility] Eosinophils/100 1 % 0.0-7.0 [facility] - leukocytes in [facility] Basophils/100 0 % 0.0-3.0 [facility] - leukocytes in [facility] Immature 1 % 0-0.5 Above high normal [facility] - granulocytes/100 Good leukocytes in Zoroastrianism Blood by Hospital Automated count Segmented 7.3 K/UL 2.3-7.6 [facility] - neutrophils Good [#/volume] in [facility] Lymphocytes 1.3 K/UL 0.9-4.2 [facility] - [#/volume] in [facility] Monocytes 1.3 K/UL 0.1-1.7 [facility] - [#/volume] in [facility] Eosinophils 0.1 K/UL 0.0-1.0 [facility] - [#/volume] in [facility] Basophils 0.0 K/UL 0.0-0.4 [facility] - [#/volume] in [facility] Immature 0.1 K/UL 0.0-0.17 [facility] - granulocytes Good [#/volume] in [facility] by Hospital Automated count Differential [facility] - cell count Good method [facility] ID Date Data Source [id number] 04/30/2019 01:52:08 PM EST [facility] - [facility] Name Value Range Interpretation Description Data Sup porting Code Source(s) Document(s ) Service comment [facility] Bacteria [facility] Jeremy Marc identified in Zoroastrianism Unspecified Hospital specimen by Culture ID Date Data Source [id number] 04/25/2019 11:50:29 AM EST [facility] ID Progress Note04/25/2019Subjective:Pt w ith fever to 101.4, wbc up to 12.8KLethargic non verbal on BiPAPBlood cultures positi ve for staph epidermidisRepeat blood cultures no growth.High vancomycin trough level a nd vanco stoppedWorsening renal function.Objective:Review of SystemsPati ent is unable to provideVitals:Patient Vitals for the past 24 hrs: BP Temp Pulse Resp SpO2 Nyiwjz39/11/20 1015 125/61 100.3 F (37.9 C) 91 [...] (MBP/ADV) 100mL MBP 3.375 g In traVENous Z1HNfsi:Recent Labs 04/24/200504/23/200619BUN 28* 22* 17C SHILO 1.82* [...] Supporting Document(s ) ID Date Data Source [id number] 04/26/2019 11:20:13 AM EST [facility] Name Value Range Interpretation Description Data Sup porting Code Source(s) Document(s ) Service comment [facility] Bacteria [facility]ast[facility] by Culture ID Date Data Source [id number] 04/25/2019 12:36:51 PM EST [facility] Name Value Range Interpretation Description Data Sup porting Code Source(s) Document(s ) Color of Urine YEL [facility] Appearance of CLEAR Abnormal (applies [facility] - Urine to non-numeric Good results) [facility] Specific gravity 1.014 1.003-1. [facility] - of Urine by 030 Good Refractometry [facility] pH of Urine by 5.5 4.6-8.0 [facility] - Test strip [facility] Protein 30 mg/dL NEG Abnormal (applies [facility] - [Mass/volume] in to non-numeric Good Urine by Test results) [facility] Glucose NEG [facility] - [Mass/volume] in Good Urine by Zoroastrianism Automated test Hospital strip Ketones NEG [facility] - [Presence] in Good Urine by Zoroastrianism Automated test [facility] strip Bilirubin.total NEG [facility] - [Presence] in Good Urine [facility] Hemoglobin NEG [facility] - [Presence] in Good Urine by Test [facility] Urobilinogen 0.2 0.2-1.0 [facility] - [Presence] in EU/dL Good Urine by Zoroastrianism Automated test [facility] strip Nitrite NEG [facility] - [Presence] in Good Urine by Zoroastrianism Automated test Hospital strip Leukocyte NEG [facility] - esterase Good [Presence] in Zoroastrianism Urine by [facility] Automated test strip Leukocytes 0-5 [facility] - [Presence] in Good Urine sediment Zoroastrianism by Light [facility] microscopy Erythrocytes 0-2 [facility] - [#/area] in Good Urine sediment Zoroastrianism by [facility] Hospital high power field Epithelial cells 0-10 [facility] - [#/area] in Good Urine sediment Zoroastrianism by [facility] high power field Bacteria NONE [facility] - [Presence] in Good Urine sediment Zoroastrianism by Light [facility] microscopy Casts [Presence] NONE Abnormal (applies [facility] - in Urine to non-numeric Good sediment by results) [facility] HYALINE Crystals [Presence] in Urine sediment by NONE [facility] - [facility] Light microscopy ID Date Data Source [id number] 04/25/2019 11:46:54 AM EST [facility] 04/25/19 0745VitalsTemp (!) 101.4 F (3 [...] Supporting Document(s ) ID Date Data Source [id number] 04/25/2019 11:29:38 AM [facility] Problem: Falls - Risk ofGoal: *Absence [...] Name Value Range Interpretation Code Description Data [facility] rce(s) Supporting Document(s ) ID Date Data Source [id number] 04/25/2019 07:25:51 AM [facility] Bedside shift change report given to Eda Clifton RN (oncoming nurse) by Popeye. Report included the following informatio n SBAR, Kardex, Intake/Output,MAR and Recent Results. Name Value Range Interpretation Code Description Data [facility] rce(s) Supporting Document(s ) ID Date Data Source [id number] 04/25/2019 07:12:39 AM [facility] Removed TLC from right upper arm. Tolera mikel well . No bleeding or infection onthe site. Name Value Range Interpretation Code Description [facility] Supporting Document(s ) ID Date Data Source [id number] 04/25/2019 07:15:35 AM [facility] Name Value Range Interpretation Description Data Sup porting Code Source(s) Document(s ) Vancomycin 32.0 10-20 Above upper panic [facility] - Goo d [Mass/volume] ug/mL limits Zoroastrianism in Serum or Hospital Plasma --trough CALLED [...] peak ortrough levels. ID Date Data Source [id number] 04/25/2019 07:08:40 AM [facility] Name Value Range Interpretation Description Data Sup porting Code Source(s) Document(s ) Sodium 143 136-145 [facility] - Good [Moles/volume] mmol/L Zoroastrianism in Serum or Hospital Plasma Potassium 3.4 3.5-5.1 Below low normal [facility] - Good [Moles/volume] mmol/L Zoroastrianism in Serum or Hospital Plasma Chloride 107 98-107 [facility] - Good [Moles/volume] mmol/L Zoroastrianism in Serum or Hospital Plasma Carbon 34 21-32 Above high normal [facility] - Good dioxide, total mmol/L Zoroastrianism [Moles/volume] Hospital in Serum or Plasma Anion gap in 5 mmol/L 10-20 Below low normal [facility] - Go od Serum or Zoroastrianism Plasma Hospital Glucose 129 74-106 Above high normal [facility] - Good [Mass/volume] mg/dL Zoroastrianism in Serum or Hospital Plasma Urea nitrogen 28 mg/dL 7-18 Above high normal [facility] - Good [Mass/volume] Zoroastrianism in Serum or Hospital Plasma Creatinine 1.82 0.70-1.3 Above high normal [facility] - Goo d [Mass/volume] mg/dL 0 Zoroastrianism in Serum or Hospital Plasma Glomerular 48 >60 Below low normal [facility] - Good filtration ml/min/1 Zoroastrianism rate/1.73 sq M .73m2 Hospital predicted among blacks [Volume Rate/Area] in Serum or Plasma by Creatinine-bas ed formula (MDRD) Glomerular 40 >60 Below low normal [facility] - Good filtration ml/min/1 Zoroastrianism rate/1.73 sq M .73m2 Hospital predicted among non-blacks [Volume Rate/Area] in Serum or Plasma by Creatinine-bas ed formula (MDRD) Calcium 9.0 8.5-10.1 [facility] - Good [Mass/volume] mg/dL Zoroastrianism in Serum or Hospital Plasma Phosphate 2.6 2.5-4.9 [facility] - Good [Mass/volume] mg/dL Zoroastrianism in Serum or Hospital Plasma Albumin 1.5 g/dL 3.5-4.7 Below low normal [facility] - Good [Mass/volume] Zoroastrianism in Serum or Hospital Plasma by Bromocresol purple (BCP) dye binding method ID Date Data Source [id number] 04/24/2019 08:45:15 PM EST [facility] Problem: Falls - Risk ofGoal: *Absence o f FallsDescriptionDocument Samra Fall Risk and appropriate interventions in the [facility] wsheet.04/24/20192043 by Blayne Julian: Progressing Towards [...] Supporting Document(s ) ID Date Data Source [id number] 04/24/2019 08:31:23 PM [facility] Problem: Falls - Risk ofGoal: *Absence [...] Supporting Document(s ) ID Date Data Source [id number] 04/24/2019 07:55:55 PM EST [facility] Progress NoteMIDSTATE MED[facility] ,[facility].Krystian Monae MD., F.C.C.P.Stella Hamilton MD., F.C.C.P. 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 PAST HCX PUL;MONARY [...] hrs : BP Temp Pulse Resp SpO2 Dcmodc02/10/20 1611 114/78 98 F (36.7 C) 83 [...] Procedure Component Value Units Date/Time CULTURE, BLOOD [[id number]] Collected: 04/20/19 1447 Order Status: Completed Specimen: Bloo d Updated: 04/24/1932 Special Requests: NO SPECIAL REQUESTS Culture result: NO GROWTH 4 DAYS CULTURE, BLOOD [[id number]] Collected: 04/20/19 1440 Order Status: Completed Specimen: Blood Updated: 04/24/19 0632 Special Requests: NO SPEC IAL REQUESTS Culture result: NO GROWTH 4 DAYS CULTURE, BLOOD [[id number]] (Abnorm al) Collected: 04/19/19 1005 Order Status: Completed Specimen: Blood Updated: 12/02 0731 Special Requests: NO SPECIAL REQUESTS GRAM STAIN GRAM POSITIVE COCC I IN CLUSTERS ANAEROBIC BOTTLE CALLED TO AND READ BACK BY ROB LEDEZMA RN, ED, 0953 ON 04/20/19 TORISMIRAGLIA Culture result: STAPHYLOCOCCUS EPIDERMIDIS : Refer to p revious culture(s) for susceptibilityresults CULTURE, BLOOD [[id number]] (Abnormal) (Susceptibility) Collected: Order Status: Completed Specimen: Bloo d Updated: 04/22/19 0729 Special Requests: NO SPECIAL REQUESTS GRAM STAIN GRAM PO SITIVE COCCI IN CLUSTERS ANAEROBIC BOTTLE CALLED TO AND READ BACK BY ROB KNOX RN, ED, AT 0953 ON 04/20/19 TORISMIRAGLIA Culture result: STAPHYLO COCCUS EPIDERMIDISImages:[email or web address] Abd ([facility])Result Date: 04/05/2019XR ABD (MARCELINO) CLINICAL INDICATION [...] sheath in situ. Through the sheatha 5 Emirati double-lumen 20 cm midl ine catheter was placed. The peel-away sheathwas removed. The catheter was sewn into position using 2-0 silk sutures. Thepatient tolerated the procedure. Ther e were no complications at the time of theprocedure. FINDINGS: Ultrasound inter rogation revealed a widely patent brachialvein above the antecubital fossa . A 5 Emirati dual-lumen 20 cm midline catheterwas placed. The tip was placed i n good position over the right axillary vein.IMPRESSION: 5 Emirati dual-lumen mid line catheter placed with tip positioned overthe right axillary vein.Ct Chest Abd Pelv Wo ContResult Date: 04/20/2019Referring Physician: MILI HILLS Patient Name: EVELIO CARLIN FINAL REPORTFROM IMAGING RESIDENTIAL SALES REPRESENTATIVE EXAM: CT chest without contrast and CT [...] 04/20/2019 22:43 GINA VerdePlease call Katja berger Canal Structure Operator [phone] with questions. This reportwas electronically signed by: [...] identified that w ould besuspicious for, or vaccine customer representative of DVT.IMPRESSION: 1. No sonographic findin [...] (MBP/ADV) 100mL MBP 3.375 g In traVENous M6EJyiubq Problems: Pneumonia (11/08/2018) Acute hypoxemic respiratory failure [...] Supporting Document(s ) ID Date Data Source [id number] 04/24/2019 07:52:01 PM [facility] Bedside and Verbal shift change report carol Ardon RN (oncoming nurse) by Jesse PITTS (offgoing nurse). Report included the following information SBAR,Kardex, MAR, Recent Results and Cardiac Rhythm. Name Value Range Interpretation Code Description Data Harriett rce(s) Supporting Document(s ) ID Date Data Source [id number] 04/24/2019 10:28:43 PM [facility] Name Value Range Interpretation Description Data Sup porting Code Source(s) Document(s ) Eosinophils NONE Abnormal (applies [facility] - Go od [#/area] in to non-numeric Zoroastrianism Urine sediment results) Hospital by Microscopy high power field ID Date Data Source [id number] 04/24/2019 09:25:37 PM [facility] Name Value Range Interpretation Description Data Sup porting Code Source(s) Document(s ) Sodium 76 MMOL/L 40-220 [facility] Good [Moles/volu Zoroastrianism me] in Hospital Urine ID Date Data Source [id number] 04/24/2019 06:06:11 PM [facility] GI PROGRESS NOTENAME: Evelio Johnson inDOB: 1950MRN: [id number]:Unresponsive on bipapT olerating TFs at 50 ml/hrObjective:VITALS:Last [...] hernia K44.9 COPD (chronic obstructive pulmonary disease) ([facility]) J44 .9 Acute respiratory distress R06.03 Pneumonia J18.9 COPD exacerbation ([facility]) J44.1 Sepsis due to undetermined organism ([facility]) A41.9 Generalized anxiety disorde r F41.1 Acute respiratory failure with hypoxia ([facility]) J96.01 Pneumonia involvin g right lung J18.9 Hyponatremia E87.1 SOB (shortness of breath) R06.02 Pressure i njury of right heel, stage 2 ([facility]) L89.612 Leg wound, right, initial encounter S81. 801A Acute hypoxemic respiratory failure ([facility]) J96.01 COPD with acute exacerbati on ([facility]) J44.1 Acute on chronic respiratory failure with hypoxia and hypercapnia (HC C)J96.21, J96.22 Scrotal rash C37Cxjbxoapgi: J via PEG working well currently, but h as been having recurrent issues Surgery for J tube placement is on hold due to poor respiratory functionPlan: Will continue to monitor Surgical f/u if improvesSigned By: Marly Amaya MD 04/24/2019 6:04 PM Name Value Range Interpretation Code Description Data Harriett rce(s) Supporting Document(s ) ID Date Data Source [id number] 04/24/2019 02:26:26 PM [facility] Patient is being seen for placement of [...] Supporting Document(s ) ID Date Data Source [id number] 04/24/2019 02:12:59 PM [facility] Problem: Nutrition DeficitGoal: *Optimiz e nutritional [...] Name Value Range Interpretation Code Description Data [facility] rce(s) Supporting Document(s ) ID Date Data Source [id number] 04/24/2019 02:11:28 PM [facility] NUTRITIONFollow Up NoteSubjective: Pt to lerating EN [...] Supporting Document(s ) ID Date Data Source [id number] 04/24/2019 01:08:31 PM EST [facility] ID Progress Note04/24/2019Subjective:Leth argic non verbal on BiPAPLow grade fever.Blood cultures positive for staph epidermidisRepeat blood cultures no growth.High vancomycin trough level.Wors ening renal function.Objective:Review of SystemsPatient is unable to provideVital s:Patient Vitals for the past 24 hrs: BP Temp Pulse Resp SpO2 Xacnme25/10/20 1127 114/ 57 98.4 F (36.9 C) [...] (MBP/ADV) 100mL MBP 3.375 g In traVENous O0JXpoc:Recent Labs 04/24/200535 04/23/200619BUN 22* 17CREA 1.62* 1.36*Cu [...] Supporting Document(s ) ID Date Data Source [id number] 04/24/2019 01:05:49 PM EST [facility] Problem: Falls - Risk ofGoal: *Absence [...] Supporting Document(s ) ID Date Data Source [id number] 04/24/2019 10:59:31 AM EST [facility] RENAL Progress NotePatient: Evelio Shukla hbein Sex: male DOA: 04/19/2019Date of : 1950 A ge: 68 y.o. :[id number]:Reyes Carlin is 68 y.o. male who was transferred by EMS from [facility] withfever,h ypoxia, O2 SAT 83 % , [...] FIO2 in the last 72 hours.CULTURE, BLOOD [[id number]] (Order [id number])MicrobiologyD ate: 04/19/2019 Department: [facility] Med Surg Released By/Authorizing: Neeta Coleman [...] usClindamycin ($) Resistant ANTONIO FinalErythromycin ($$$$) Resistant ANTONOI F inalGentamicin ($) Susceptible ANTONIO FinalOxacillin Resistant [...] sheath in situ. Through the sheatha 5 Emirati double-lumen 20 cm midl ine catheter was placed. The peel-away sheathwas removed. The catheter was sewn into position using 2-0 silk sutures. Thepatient tolerated the procedure. Ther e were no complications at the time of theprocedure. FINDINGS: Ultrasound inter rogation revealed a widely patent brachialvein above the antecubital fossa . A 5 Emirati dual-lumen 20 cm midline catheterwas placed. The tip was placed i n good position over the right axillary vein.IMPRESSION: 5 Emirati dual-lumen mid line catheter placed with tip positioned overthe right axillary vein.Ct Chest Abd Pelv Wo ContResult Date: 04/20/2019Referring Physician: MILI HILLS Patient Name: EVELIO CARLIN FINAL REPORTFROM IMAGING RESIDENTIAL SALES REPRESENTATIVE EXAM: CT chest without contrast and CT [...] 04/20/2019 22:43 GINA VerdePlease call Katja berger Canal Structure Operator [phone] with questions. This reportwas electronically signed by: [...] identified that w ould besuspicious for, or vaccine customer representative of DVT.IMPRESSION: 1. No sonographic findin [...] (MBP/ADV ) 100mL MBP 3.375 g IntraVENous G3EGrafxjlqdh/Plan:Hospital Problems Da te Reviewed: 04/21/2019 Codes Class Noted POA Scrotal rash ICD-10-CM: N57VVY-7-WQ: 782.1 04/21/2019 Yes COPD with acute exacerbation [...] Supporting Document(s ) ID Date Data Source [id number] 04/24/2019 10:55:34 AM EST [facility] [address], [place] [id number].[facility] NEUROLOGY CONSULT NOTEName Evelio Carlin Age 68 [facility] Physician: Jasmeet Rae Complaint:Chief ComplaintPatient present s with Respiratory DistressHistory of Present Illness:This is a 68 y.o. M p/w abnormal movements concerning for seizure.Patient transferred from intermediate w/ fever, hypoxia, hypotension, andtachypnea.Since admission, patient [...] exacerbation of chronic obstructive pulmonary disease (COPD) ([facility])J44.1 491.212. Acute hypoxem ic respiratory failure ([facility]) J96.01 518.813. Pneumonia of both lower lobes due to inf ectious organism ([facility]) J18.1 483.84. Acute respiratory distress R06.03 [...] Supporting Document(s ) ID Date Data Source [id number] 04/24/2019 09:28:36 AM [facility] Progress NotePatient: Evelio Carlin Sex: male DOA: 04/19/2019Date of : 1950 A ge: 68 y.o. :[id number]:Reyes Carlin is 68 y.o. male who was transferred by EMS from [facility] withfever,h ypoxia, O2 SAT 83 % , [...] in the last 72 tammy rs.CULTURE, BLOOD [[id number]] (Order [id number])MicrobiologyDate: 04/19/2019 Dep artment: [facility] Med Surg Released By/Authorizing: Neeta Coleman NP (auto-r eleased)Specimen Information: Blood Component Value Flag Ref Range Units StatusSpecial Requests: FinalNO SPECIAL REQUESTSGRAM STAIN FinalGRAM POSITIVE COCCI IN C LUSTEventbrite ANAEROBIC BOTTLEGRAM STAIN FinalCALLED TO AND READ [...] sheath in situ. Through the sheatha 5 Emirati double-lumen 20 cm midl ine catheter was placed. The peel-away sheathwas removed. The catheter was sewn into position using 2-0 silk sutures. Thepatient tolerated the procedure. Ther e were no complications at the time of theprocedure. FINDINGS: Ultrasound inter rogation revealed a widely patent brachialvein above the antecubital fossa . A 5 Emirati dual-lumen 20 cm midline catheterwas placed. The tip was placed i n good position over the right axillary vein.IMPRESSION: 5 Emirati dual-lumen mid line catheter placed with tip positioned overthe right axillary vein.Ct Chest Abd Pelv Wo ContResult Date: 04/20/2019Referring Physician: MILI IHLLS Patient Name: EVELIO CARLIN FINAL REPORTFROM IMAGING RESIDENTIAL SALES REPRESENTATIVE EXAM: CT chest without contrast and CT [...] technique. THISDOCUMENT H BEEN ELECTRONICALLY SIGNED Marcie dEge MD 04/20/2019 22:43 GINA VerdePlease call Katjadevang berger Canal Structure Operator [phone] with questions. This reportwas electronically signed by: [...] identified that w ould besuspicious for, or vaccine customer representative of DVT.IMPRESSION: 1. No sonographic findin [...] (MBP/ADV ) 100mL MBP 3.375 g IntraVENous U3KNeybsdrmel/Plan:Hospital Problems Da te Reviewed: 04/21/2019 Codes Class Noted POA Scrotal rash ICD-10-CM: E86FSU-1-PE: 782.1 04/21/2019 Yes COPD with acute exacerbation [...] Name Value Range Interpretation Code Description Data [facility] rce(s) Supporting Document(s ) ID Date Data Source [id number] 04/24/2019 08:37:35 AM [facility] Attempted LTM. Pt currently on Bipap and unstable to be on nasal cannula forconnection per nurse. Pt LTM now on h old. Advised Dr. Jay hawk. 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 Name Value Range Interpretation Code Description Data [facility] rce(s) Supporting Document(s ) ID Date Data Source [id number] 04/24/2019 07:45:55 AM [facility] Bedside and Verbal shift change report carol Gross (oncoming nurse) Lisbeth Schmitz (offgoing nurse). Report included the following information SBAR,Kardex, Intake/Output, MAR and Recent Results. Name Value Range Interpretation Code Description Data [facility] rce(s) Supporting Document(s ) ID Date Data Source [id number] 04/24/2019 07:03:02 AM [facility] 0408, patient is voiding, diaper is wetF oley catheter discontinued as per Dr. Hills orderedUrine output 400ml., pt tolerated wellContinue to monitor patient I &O Name Value Range Interpretation Code Description Data [facility] rce(s) Supporting Document(s ) ID Date Data Source [id number] 04/24/2019 12:00:56 PM [facility] Name Value Range Interpretation Description Data Sup porting Code Source(s) Document(s ) Urate 4.0 mg/dL 3.5-7.2 [facility] - Good [Mass/volu Zoroastrianism me] in Hospital Serum or Plasma ID Date Data Source [id number] 04/24/2019 12:00:56 PM EST [facility] Name Value Range Interpretation Description Data Sup porting Code Source(s) Document(s ) Creatine 33 U/L 39-308 Below low normal [facility] - Good kinase Zoroastrianism [Enzymatic Hospital activity/volu me] in Serum or Plasma ID Date Data Source [id number] 04/24/2019 07:43:45 AM EST [facility] Name Value Range Interpretation Description Data Sup porting Code Source(s) Document(s ) Sodium 141 136-145 [facility] - Good [Moles/volume] mmol/L Zoroastrianism in Serum or Hospital Plasma Potassium 3.3 3.5-5.1 Below low normal [facility] - Good [Moles/volume] mmol/L Zoroastrianism in Serum or Hospital Plasma Chloride 105 98-107 [facility] - Good [Moles/volume] mmol/L Zoroastrianism in Serum or Hospital Plasma Carbon 31 21-32 [facility] - Good dioxide, total mmol/L Zoroastrianism [Moles/volume] Hospital in Serum or Plasma Anion gap in 8 mmol/L 10-20 Below low normal [facility] - Go od Serum or Zoroastrianism Plasma Hospital Glucose 118 74-106 Above high normal [facility] - Good [Mass/volume] mg/dL Zoroastrianism in Serum or Hospital Plasma Urea nitrogen 22 mg/dL 7-18 Above high normal [facility] - Good [Mass/volume] Zoroastrianism in Serum or Hospital Plasma Creatinine 1.62 0.70-1.3 Above high normal [facility] - Goo d [Mass/volume] mg/dL 0 Zoroastrianism in Serum or Hospital Plasma Glomerular 55 >60 Below low normal [facility] - Good filtration ml/min/1 Zoroastrianism rate/1.73 sq M .73m2 Hospital predicted among blacks [Volume Rate/Area] in Serum or Plasma by Creatinine-bas ed formula (MDRD) Glomerular 45 >60 Below low normal [facility] - Good filtration ml/min/1 Zoroastrianism rate/1.73 sq M .73m2 Hospital predicted among non-blacks [Volume Rate/Area] in Serum or Plasma by Creatinine-bas ed formula (MDRD) Calcium 9.2 8.5-10.1 [facility] - Good [Mass/volume] mg/dL Zoroastrianism in Serum or Hospital Plasma Phosphate 1.8 2.5-4.9 Below low normal [facility] - Good [Mass/volume] mg/dL Zoroastrianism in Serum or Hospital Plasma Albumin 1.6 g/dL 3.5-4.7 Below low normal [facility] - Good [Mass/volume] Zoroastrianism in Serum or Hospital Plasma by Bromocresol purple (BCP) dye binding method ID Date Data Source [id number] 04/24/2019 11:54:39 AM EST [facility] Name Value Range Interpretation Description Data Sup porting Code Source(s) Document(s ) Parathyrin 81.1 20.0-80.0 Above high normal [facility] - Goo d .intact pg/mL Zoroastrianism [Mass/volu Hospital me] in Serum or Plasma ID Date Data Source [id number] 04/24/2019 05:27:21 AM EST [facility] Problem: Falls - Risk ofGoal: *Absence [...] Supporting Document(s ) ID Date Data Source [id number] 04/23/2019 09:23:28 PM [facility] ID Progress Note04/23/2019Subjective:Awake non verbal on BiPAPAfebrileBlood cultures positive for staph epidermidisObjective: Review of SystemsPatient is unable to provideVitals:Patient Vitals for the pas t 24 hrs: BP Temp Pulse Resp SpO2 Cdjoxo40/09/20 1327 - - - - 98 % [...] (MBP/ADV) 100mL MBP 3.375 g In traVENous L6NBhue:Recent Labs 04/23/200619BUN 17CREA 1.36*Cultures:Lab ResultsComponent Value Date/Time [...] identified that w ould besuspicious for, or vaccine customer representative of DVT.IMPRESSION: 1. No sonographic findin [...] Supporting Document(s ) ID Date Data Source [id number] 04/24/2019 08:06:37 AM EST [facility] Name Value Range Interpretation Description Data Sup porting Code Source(s) Document(s ) C reactive 43 mg/L 0-10 Above high normal [facility] - Goo d protein Zoroastrianism [Mass/volume] [facility] in Serum or Plasma (NOTE)Performed At: RN [facility] [address] [id number] García MD Ph:[phone] ID Date Data Source [id number] 04/23/2019 08:37:45 PM EST [facility] Name Value Range Interpretation Description Data Sup porting Code Source(s) Document(s ) Erythrocyte 83 mm/hr 0-20 Above high normal [facility] - Go od sedimentation [facility] ID Date Data Source [id number] 04/23/2019 07:44:10 PM EST [facility] Progress NoteMID-[facility] ,P.C.Krystian Monae MD., F.C.C.P.Stella Hamilton MD., F.C.C.P. 9W 1 [facility] [address] [place] [address] [place] [phone]: Evelio Carlin Sex: male DOA: [...] hrs : BP Temp Pulse Resp SpO2 Pickvw95/09/20 1612 - - - - 98 % [...] Procedure Component Value Units Date/Time CULTURE, BLOOD [[id number]] Collected: 04/20/19 1440 Order Status: Completed Specimen: Blood Updated: 04/23/19525 Special Requests: NO SPEC IAL REQUESTS Culture result: NO GROWTH 3 DAYS CULTURE, BLOOD [[id number]] Collecte d: 04/20/19 1447 Order Status: Completed Specimen: Blood Updated: 04/23/19525 Special Requests: NO SPECIAL REQUESTS Culture result: NO GROWTH 3 DAYS CULTURE , BLOOD [[id number]] (Abnormal) Collected: 04/19/19 1005 Order Status: Completed S pecimen: Blood Updated: 04/22/19 0731 Special Requests: NO SPECIAL REQUESTS G ESCOBAR STAIN GRAM POSITIVE COCCI IN CLUSTERS ANAEROBIC BOTTLE CALLED TO AND READ MAIN K BY ROB LEDEZMA,RN, ED, 0984 ON 04/20/19 TORISMIRAGLIA Culture result: S TAPHYLOCOCCUS EPIDERMIDIS : Refer to previous culture(s) for susceptibilityresults CUL TURE, BLOOD [[id number]] (Abnormal) (Susceptibility) Collected: 5 Order Status: Completed Specimen: Blood Updated: 04/22/19 0729 Special Request s: NO SPECIAL REQUESTS GRAM STAIN GRAM POSITIVE COCCI IN CLUSTERS ANAEROBIC BOT TLE CALLED TO AND READ BACK BY ROB LEDEZMA, RN, ED, AT 0953 ON 04/20/[address] Culture result: STAPHYLOCOCCUS EPIDERMIDISImages:[email or web address] Abd ( kub)Result [...] sheath in situ. Through the sheatha 5 Emirati double-lumen 20 cm midl ine catheter was placed. The peel-away sheathwas removed. The catheter was sewn into position using 2-0 silk sutures. Thepatient tolerated the procedure. Ther e were no complications at the time of theprocedure. FINDINGS: Ultrasound inter rogation revealed a widely patent brachialvein above the antecubital fossa . A 5 Emirati dual-lumen 20 cm midline catheterwas placed. The tip was placed i n good position over the right axillary vein.IMPRESSION: 5 Emirati dual-lumen mid line catheter placed with tip positioned overthe right axillary vein.Ct Chest Abd Pelv Wo ContResult Date: 04/20/2019Referring Physician: MILI HILLS Patient Name: EVELIO CARLIN FINAL REPORTFROM IMAGING RESIDENTIAL SALES REPRESENTATIVE EXAM: CT chest without contrast and CT [...] 04/20/2019 22:43 GINA Jenkins.Please call Katja berger Canal Structure Operator [phone]) with questions. This reportwas electronically signed by: [...] identified that w ould besuspicious for, or vaccine customer representative of DVT.IMPRESSION: 1. No sonographic findin [...] (MBP/ADV) 100mL MBP 3.3 75 g IntraVENous [id number] Problems: Pneumonia (11/08/2018) Acute hypoxemic r espiratory [...] Name Value Range Interpretation Code Description Data [facility](s) Supporting Document(s ) ID Date Data Source [id number] 04/23/2019 07:28:09 PM EST [facility] Bedside and Verbal shift change report carol Robles RN (oncoming nurse) byAde Salazar RN (offgoing nurse). Report includ ed the following information SBAR,Kardex, MAR, Recent Results and Cardiac Rhythm. Name Value Range Interpretation Code Description Data [facility](s) Supporting Document(s ) ID Date Data Source [id number] 04/23/2019 07:22:10 PM [facility] XR CHEST PORTCLINICAL INDICATION PROVIDE D:. "Verification [...] Supporting Document(s ) ID Date Data Source [id number] 04/23/2019 03:28:03 PM [facility] GI PROGRESS NOTENAME: Evelio Shukla hbeinDOB: 1950MRN: [id number]:Patient is tolerating tube feeds. Main port is [...] Regular rhythm,Abdomen: Soft, Non distended, Non tender. (+)[place] el sounds, no HSMLab Data Reviewed:No results [...] hernia K44.9 COPD (chronic obstructive pulmonary disease) ([facility]) J44 .9 Acute respiratory distress R06.03 Pneumonia J18.9 COPD exacerbation ([facility]) J44.1 Sepsis due to undetermined organism ([facility]) A41.9 Generalized anxiety disorde r F41.1 Acute respiratory failure with hypoxia ([facility]) J96.01 Pneumonia involvin g right lung J18.9 Hyponatremia E87.1 SOB (shortness of breath) R06.02 Pressure i njury of right heel, stage 2 ([facility]) L89.612 Leg wound, right, initial encounter S81. 801A Acute hypoxemic respiratory failure ([facility]) J96.01 COPD with acute exacerbati on ([facility]) J44.1 Acute on chronic respiratory failure with hypoxia and hypercapnia (HC C)J96.21, J96.22 Scrotal rash F96Vychnbshqx: Tube feeds well toleratedPlan: Continu e tube feeds through PEG/PEJ Await ongoing surgical eval.Signed By: Nikos Martinez MD 04/23/2019 3:22 PM Name Value Range Interpretation Code Description Data [facility](s) Supporting Document(s ) ID Date Data Source [id number] 04/23/2019 01:36:27 PM EST [facility] Patient placed back on Bipap as per Dr. Monae's orders. Bipap @ 26/10,45%.Routine Bipap check done. Patient with an under nose mask. Two finger techniqueapplied to assess the tightness of mask.. Name Value Range Interpretation Code Description Data [facility] r[facility](s) Supporting Document(s ) ID Date Data Source [id number] 04/23/2019 01:15:09 PM [facility] Problem: Falls - Risk ofGoal: *Absence [...] Name Value Range Interpretation Code Description Data [facility] rce(s) Supporting Document(s ) ID Date Data Source [id number] 04/23/2019 10:59:03 AM EST [facility] Retroperitoneal sonogram clinical indica tion acute kidney [...] Name Value Range Interpretation Code Description Data [facility] rce(s) Supporting Document(s ) ID Date Data Source [id number] 04/23/2019 01:19:18 PM EST [facility] Name Value Range Interpretation Description Data Sup porting Code Source(s) Document(s ) Eosinophils NONE [facility] [#/area] in [facility] by Microscopy high power field ID Date Data Source [id number] 04/23/2019 12:46:17 PM EST [facility] Name Value Range Interpretation Description Data Sup porting Code Source(s) Document(s ) Color of Urine [facility] Appearance of CLEAR [facility] - Urine [facility] Specific gravity 1.010 1.003-1. [facility] - of Urine by 030 Good Refractometry [facility] pH of Urine by 6.0 4.6-8.0 [facility] - Test strip [facility] Protein NEG [facility] - [Mass/volume] in Good Urine by Test [facility] Glucose NEG [facility] - [Mass/volume] in Good Urine by Zoroastrianism Automated test [facility] strip Ketones NEG [facility] - [Presence] in Good Urine by Zoroastrianism Automated test [facility] strip Bilirubin.total NEG [facility] - [Presence] in Good Urine [facility] Hemoglobin NEG Abnormal (applies [facility] - [Presence] in to non-numeric Good Urine by Test results) [facility] Urobilinogen 0.2 0.2-1.0 [facility] - [Presence] in EU/dL Good Urine by [facility]oroastrianism Automated test Hospital strip Nitrite NEG [facility] - [Presence] in Good Urine by [facility]astrianism Automated test Hospital strip Leukocyte NEG Abnormal (applies [facility] - esterase to non-numeric Good [Presence] in results) Zoroastrianism Urine by [facility] Automated test strip Leukocytes 0-5 [facility] - [Presence] in Good Urine sediment Zoroastrianism by [facility] microscopy Erythrocytes 0-2 [facility] - [#/area] in Good Urine sediment Zoroastrianism by [facility] high power field Epithelial cells 0-10 [facility] - [#/area] in Good Urine sediment Zoroastrianism by [facility] high power field Bacteria NONE [facility] - [Presence] in Good Urine sediment Zoroastrianism by [facility] microscopy Casts [Presence] NONE [facility] - in Urine Good sediment by [facility] Crystals NONE [facility] - [Presence] in Good Urine sediment Zoroastrianism by [facility] microscopy ID Date Data Source [id number] 04/23/2019 12:45:27 PM EST [facility] Name Value Range Interpretation Description Data Sup porting Code Source(s) Document(s ) Sodium 86 MMOL/L 40-220 [facility] - Good [Moles/volu Zoroastrianism me] in Hospital Urine ID Date Data Source [id number] 04/23/2019 09:41:25 AM EST [facility] - Good [facility] Consult NotePatient: Evelio Carlin Sex: male [...] (MBP/ADV) 100mL MBP 3.375 g In traVENous D0ZBqbxjx of [employer]: No fever, chills, malaise.Heent: No [...] sheath in situ. Through the sheatha 5 Emirati double-lumen 20 cm midl ine catheter was placed. The peel-away sheathwas removed. The catheter was sewn into position using 2-0 silk sutures. Thepatient tolerated the procedure. Ther e were no complications at the time of theprocedure. FINDINGS: Ultrasound inter rogation revealed a widely patent brachialvein above the antecubital fossa . A 5 Emirati dual-lumen 20 cm midline catheterwas placed. The tip was placed i n good position over the right axillary vein.IMPRESSION: 5 Emirati dual-lumen mid line catheter placed with tip positioned overthe right axillary vein.Ct Chest Abd Pelv Wo ContResult Date: 04/20/2019Referring Physician: MILI HILLS Patient Name: EVELIO CARLIN FINAL REPORTFROM IMAGING RESIDENTIAL SALES REPRESENTATIVE EXAM: CT chest without contrast and CT [...] 04/20/2019 22:43 GINA VerdePlease call Katja berger Canal Structure Operator [phone] ([phone]) with questions. This reportwas electronically signed by: [...] identified that w ould besuspicious for, or vaccine customer representative of DVT.IMPRESSION: 1. No sonographic findin [...] Supporting Document(s ) ID Date Data Source [id number] 04/23/2019 08:59:38 AM [facility] Patient taken off Bipap and placed on 4l n/c. At this time patient's rr=24,spo2 91%, HR 83. No skin breakdown noted from Bipa p mask. Will continue tomonitor patient's respiratory status. Name Value Range Interpretation Code Description Data [facility] rce(s) Supporting Document(s ) ID Date Data Source [id number] 04/23/2019 08:19:09 AM [facility] DUPLEX UPPER EXTREMITY-VENOUS LEFTHISTOR Y: Swelling left upper extremity- evaluate for DVTPRIOR: Multiple: Most recent February 10, 2019: "No evidence of deep veinthrombosis."TECHNICAL FACTORS: High resolution linear grayscale, color-flow and Dopplerevaluation of the left upper extr emity was performed from the neck to theantecubital fossa.FINDINGS: Normal an tegrade flow, compressibility of the deep venous vasculature,except for the inclusion internship al jugular and subclavian veins due to [...] Supporting Document(s ) ID Date Data Source [id number] 04/23/2019 01:30:35 PM [facility] Name Value Range Interpretation Description Data Sup porting Code Source(s) Document(s ) Creatine 52 U/L 39-308 [facility] - Good kinase Zoroastrianism [Enzymatic Hospital activity/volu me] in Serum or Plasma ID Date Data Source [id number] 04/23/2019 01:30:35 PM [facility] Name Value Range Interpretation Description Data Sup porting Code Source(s) Document(s ) NOLOINC 2.990 0.360-3.7 [facility] - Good uIU/mL [address] [place] [address] This assay result should be used in conj unction with information available from clinical evaluation and other diagnostic procedures. 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: [employer] ID Date Data Source [id number] 04/23/2019 01:30:35 PM [facility] Value Range Interpretation Description Data Sup porting Code Source(s) Document(s ) Urate 3.6 mg/dL 3.5-7.2 [facility] - Good [Mass/volu Zoroastrianism me] in Hospital Serum or Plasma ID Date Data Source [id number] 04/23/2019 09:10:20 AM EST [facility] Value Range Interpretation Description Data Sup porting Code Source(s) Document(s ) Sodium 141 136-145 [facility] - Good [Moles/volume] mmol/L Zoroastrianism in Serum or Hospital Plasma Potassium 3.1 3.5-5.1 Below low normal [facility] - Good [Moles/volume] mmol/L Zoroastrianism in Serum or Hospital Plasma Chloride 105 98-107 [facility] - Good [Moles/volume] mmol/L Zoroastrianism in Serum or Hospital Plasma Carbon 31 21-32 [facility] - Good dioxide, total mmol/L Zoroastrianism [Moles/volume] Hospital in Serum or Plasma Anion gap in 8 mmol/L 10-20 Below low normal [facility] - Go od Serum or Zoroastrianism Plasma Hospital Glucose 140 74-106 Above high normal [facility] - Good [Mass/volume] mg/dL Zoroastrianism in Serum or Hospital Plasma Urea nitrogen 17 mg/dL 7-18 [facility] - Good [Mass/volume] Zoroastrianism in Serum or Hospital Plasma Creatinine 1.36 0.70-1.3 Above high normal [facility] d [Mass/volume] mg/dL 0 Zoroastrianism in Serum or Hospital Plasma RESULTS CONFIRMED Glomerular filtration >60 [facility] Good rate/1.73 sq M predicted [facility] among blacks [Volume Rate/Area] in Serum or Plasma by Creatinine-based formula (MDRD) Glomerular filtration 55 >60 Below low normal [facility] - Good rate/1.73 sq M predicted ml/min/1.73m2 [facility] among non-blacks [Volume Rate/Area] in Serum or Plasma by Creatinine-based formula (MDRD) (NOTE)Estimated GFR is calculated using the Modification of Diet in RenalDisease (MDRD) Study equation, reported for both Americans(GFRAA) and non- Americans (GFRNA), and normalized to 1.7 9q8vlew surface area. The physician must decide which value applies tothe patient . The MDRD study equation should only be used inindividuals age 18 or older. It has no t been validated for thefollowing: women, patients with serious comorbid co nditions,or on certain medications, or persons with extremes of body size,muscl e mass, or nutritional status. Calcium [Mass/volume] in Serum 8.9 mg/dL 8.5-10.1 [facility] or Plasma Hospital ID Date Data Source [id number] 04/23/2019 07:11:33 AM EST [facility] Bedside and Verbal shift change report carol Gross RN (oncoming nurse) Shawn PITTS (offgoing nurse). Report included the following information SBAR,Kardex, Intake/Output, MAR, Recent Results and Med Rec Status. Name Value Range Interpretation Code Description Data [facility] rce(s) Supporting Document(s ) ID Date Data Source [id number] 04/23/2019 06:51:37 AM EST [facility] Progress NotePatient: Evelio Carlin Sex: male DOA: 04/19/2019Date of : 1950 A ge: 68 y.o. :[id number]:Reyes Carlin is 68 y.o. male who was transferred by EMS from [facility] withfever,h ypoxia, O2 SAT 83 % , [...] FIO2 in the last 72 hours.CULTURE, BLOOD [[id number]] (Order [id number])MicrobiologyDate: 04/19/2019 Department: [facility] 3t Med Surg Released By/ Authorizing: Neeta [...] usceptible ANTONIO FinalTetracycline Resistant ANTONIO FinalCULTURE, BLOOD [[id number]] (Order [id number])MicrobiologyDate: 04/20/2019 Department: [facility] 3t Med Surg Released By/ Authorizing: Monica [...] sheath in situ. Through the sheatha 5 Emirati double-lumen 20 cm midl ine catheter was placed. The peel-away sheathwas removed. The catheter was sewn into position using 2-0 silk sutures. Thepatient tolerated the procedure. Ther e were no complications at the time of theprocedure. FINDINGS: Ultrasound inter rogation revealed a widely patent brachialvein above the antecubital fossa . A 5 Emirati dual-lumen 20 cm midline catheterwas placed. The tip was placed i n good position over the right axillary vein.IMPRESSION: 5 Emirati dual-lumen mid line catheter placed with tip positioned overthe right axillary vein.Ct Chest Abd Pelv Wo ContResult Date: 04/20/2019Referring Physician: MILI HILLS Patient Name: EVELIO CARLIN FINAL REPORTFROM IMAGING RESIDENTIAL SALES REPRESENTATIVE EXAM: CT chest without contrast and CT [...] 04/20/2019 22:43 GINA VerdePlease call Katja berger Canal Structure Operator [phone] with questions. This reportwas electronically signed by: [...] (MBP/ADV) 100mL MBP 3.375 g In traVENous C7TVvfhqcmlpe/Plan:Hospital Problems Date Reviewed: 04/21/2019 Codes Class Noted POA Scrotal rash ICD-10-CM: D53YVO-5-UV: 782.1 04/21/2019 Yes COPD wi th acute [...] Name Value Range Interpretation Code Description [facility] ) ID Date Data Source [id number] 04/22/2019 07:31:01 PM [facility] Bedside and Verbal shift change report g ankit to Marisa Jean (oncoming nurse) by Simone (offgoing nurse). Report included the fo llowing information SBAR, Kardex andMAR. Name Value Range Interpretation Code Description Data [facility] Supporting Document(s ) ID Date Data Source [id number] 04/22/2019 06:48:55 PM [facility] Progress NoteMID-SC[facility] ,P.[facility].Krystian Monae MD., F.C.C.P.Stella Hamilton MD., F.C.C.P. [address] [place] [id number] [place] [address] [phone]: Evelio Carlin Sex: male DOA: [...] 24 hrs: BP Temp Pulse Resp SpO2 [place]55/08/20 1732 - - - - 95 % [...] Component Value Units Date/Time CULTURE, BLOOD [[id number]] (Abnormal) Collected: 04/19/19 1005 Order Status: Completed Specimen: Blood Updated: 04/22/19 0731 Special Requests: NO SPECIAL REQUESTS GRAM STAI N GRAM POSITIVE COCCI IN CLUSTERS ANAEROBIC BOTTLE CALLED TO AND READ BACK BY SHASHI LEDEZMA RN, ED, 0953 ON 04/20/19 TORISMIRAGLIA Culture result: STAPHYLO COCCUS EPIDERMIDIS : Refer to previous culture(s) for susceptibilityresults TJ GODDARD, BLOOD [[id number]] (Abnormal) (Susceptibility) Collected: 5 Order Status: Completed Specimen: Blood Updated: 04/22/19 0729 Special Request s: NO SPECIAL REQUESTS GRAM STAIN GRAM POSITIVE COCCI IN CLUSTERS ANAEROBIC BOT TLE CALLED TO AND READ BACK BY ROB LEDEZMA RN, ED, AT 0953 ON 04/20/19 TO RISMIRAGLIA Culture result: STAPHYLOCOCCUS EPIDERMIDIS CULTURE, BLOOD [[id number]] C ollected: 04/20/19 1440 Order Status: Completed Specimen: Blood Updated: 12/02 0611 Special Requests: NO SPECIAL REQUESTS Culture result: NO GROWTH 2 DA YS CULTURE, BLOOD [[id number]] Collected: 04/20/19 1447 Order Status: Completed S [...] sheath in situ. Through the sheatha 5 Emirati double-lumen 20 cm midl ine catheter was placed. The peel-away sheathwas removed. The catheter was sewn into position using 2-0 silk sutures. Thepatient tolerated the procedure. Ther e were no complications at the time of theprocedure. FINDINGS: Ultrasound inter rogation revealed a widely patent brachialvein above the antecubital fossa . A 5 Emirati dual-lumen 20 cm midline catheterwas placed. The tip was placed i n good position over the right axillary vein.IMPRESSION: 5 Emirati dual-lumen mid line catheter placed with tip positioned overthe right axillary vein.Ct Chest Abd Pelv Wo ContResult Date: 04/20/2019Referring Physician: MILI HILLS Patient Name: EVELIO CARLIN FINAL REPORTFROM IMAGING RESIDENTIAL SALES REPRESENTATIVE EXAM: CT chest without contrast and CT [...] 04/20/2019 22:43 GINA Jenkins.Please call Katja robert Canal Structure Operator [phone]) with questions. This reportwas electronically signed by: [...] (MBP/ADV) 100mL MBP 3.375 g In traVENous H4NIwzdip Problems: Pneumonia (11/08/2018) Acute hypoxemic respiratory failure (HCC) (03/25/2019) COPD with acute exacerbation (HCC) (04/19/2019) Acute on chronic respiratory failure with hypoxia and hypercapnia (HCC)(04/19/2019) Scrotal torsten h (04/21/2019)Assessment:1. ACUTE HYPERCAPNIC AND HYPOXIC RESPIRATORY FAILURE2. ATEL ECTASIS L L L3. SEVERE COPD 4. MENTAL RETARDATION5. PNEUMONIA 6. SEPSIS L A = 2.57. METABOLIC ENCEPHALOPATHY8. HX P. E9. 9 AC RESP CNQJKTNO13. BACTEREMIA G + COCCI11. FLUID OVER LOAD12. [...] 20 MG I V P NOW Krystian Moane MD F.C.C.P.Sadi hogan20196:41 PM Name Value Range Interpretation Code Description Data [facility] rce(s) Supporting Document(s ) ID Date Data Source [id number] 04/22/2019 03:29:06 PM [facility] Surgery Progress NoteNAME: Evelio Abraham beinDOB: 1950MRN: [id number]:Patient was seen in pr esence of his [...] this patients care and please callme on [phone] with questions and concernsSigned By: Kareen Mills MD 04/22/2019 3:20 P M Name Value Range Interpretation Code Description Data [facility] rce(s) Supporting Document(s ) ID Date Data Source [id number] 04/22/2019 03:17:23 PM EST [facility] Problem: Falls - Risk ofGoal: *Absence [...] Supporting Document(s ) ID Date Data Source [id number] 04/22/2019 02:35:59 PM EST [facility] vanco trough 23.6. call placed to [...] Supporting Document(s ) ID Date Data Source [id number] 04/22/2019 01:42:48 PM EST [facility] Value Range Interpretation Description Data Sup porting Code Source(s) Document(s ) Vancomycin 23.6 10-20 Above upper panic [facility] - [facility] [Mass/volume] ug/mL limits Zoroastrianism in Serum or Hospital Plasma --trough CALLED TO AND READ BACK BYANETA MCDONALD RN 2514 0141 GHAZALA PICKETT(NOTE)Trough levels of 15-20 ug/mL should [...] ortrough le vels. ID Date Data Source [id number] 04/22/2019 11:34:49 AM EST [facility] ID Progress Note04/22/2019Subjective:Awake non verbal,off BiPAPAfebrileBlood cultures positive for Staph epidermidis 2/4 bottl esObjective:Review of SystemsPatient is unable to provideVitals:Patient Vitals f or the past 24 hrs: BP Temp Pulse Resp SpO2 Fgrevq98/08/20 0814 120/90 99.5 F (37.5 C) 77 [...] (MBP/ADV) 100mL MBP 3.375 g In traVENous R7QFygb:Recent Labs 04/20/200330WBC 12.8*HGB 10.1*PLT 239BUN 13CREA 0.35*Cultures:Lab ResultsComponent Value Date/Time Culture result: NO GROWT H 2 DAYS 04/20/2019 02:47 PM Culture result: NO GROWTH 2 DAYS 04/20/2019 02:40 PM Cul ture result: STAPHYLOCOCCUS EPIDERMIDIS (A) 04/19/2019 10:15 AMRadiology:No results found.Assessment: Staph sepsis. Aspiration pneumonia. Acute COPD exacerbation. Ac [place] respiratory failure. Dysphagia s. Plan:1. Continue Iv vancomycin and zosyn 2. Check vanco level3. Follow culturesMaangeles Gomez MDJanuary 20200310 PM Name Value Range Interpretation Code Description Data [facility]ett rce(s) Supporting Document(s ) ID Date Data Source [id number] 04/22/2019 10:12:00 AM EST [facility] Feedings tolerated, advanced to 50ml/hr . Will continue to monitor pt Name Value Range Interpretation Code Description Data Harriett rce(s) Supporting Document(s ) ID Date Data Source [id number] 04/22/2019 09:59:21 AM [facility] GASTROENTEROLOGY CONSULTATION NOTENAME: Evelio NorrisOB: 1950MRN: [id number] Physician: Juan R rojas Date: 04/22/2019Chief Complaint: [...] (MBP/ADV) 100mL MBP 3.375 g In traVENous F7RZhnqcr History:History reviewed. No pertinent family history.Social Histo ry:Social HistoryTobacco Use Smoking status: Never Smoker Smokeless tobacco: Never U sedSubstance Use Topics Alcohol use: NoReview of Systems:FeverChillsHADizzine ssGood moodRashJaundiceJoint painWeight lossOdynophagiaDysphagiaHeartburnChest p ainDyspneaN/VHematemesisAbd painDiarrheaConstipationDysuriaMelenaHem atocheziaThe rest of the review of systems is negative except per HPIObjective:Patient Vitals for the past 8 hrs: BP Temp Pulse Resp SpO2 Fkvhtd47/08/20 0814 120/90 99. 5 F (37.5 C) [...] Anicteric conjunctiva.Lungs: CTA Bilate rallyHeart: Normal S1, D1Cabkrhx: Soft, Non distended, Non tender. Normoactive macrina l sounds, no HSM, norebound/guardingMSK: Normal muscle toneSkin: Warm to touchE xtremities: Negative bilateral pedal edemaPsych: Poor insight. Not anxious nor agitated.Lab Data Reviewed:Recent Labs 04/19/2009WBC 12.8* 8.1HG B 10.1* 11.8*HCT 31.8* 36.7*PLT 239 247Recent Labs 04/19/2015 27979SF 136 -- -- 134*K 3.7 -- -- [...] hernia K44.9 COPD (chronic obstructive pulmonary disease) ([facility]) J44.9 Acute respiratory distress R06.03 Pneumonia J18.9 COPD exacerbation ([facility]) J44.1 Sepsis due to undetermined organism ([facility]) A41.9 Generalized anxiety disorder F41.1 Acute respiratory failur e with hypoxia ([facility]) J96.01 Pneumonia involving right lung J18.9 Hyponatremia E87.1 SOB (shortness of breath) R06.02 Pressure injury of right heel, stage 2 ( [facility]) L89.612 Leg wound, right, initial encounter S81.801A Acute hypoxemic resp iratory failure ([facility]) J96.01 COPD with acute exacerbation ([facility]) J44.1 Acute on chron ic respiratory failure with hypoxia and hypercapnia ([facility])J96.21, J96.22 Scrotal rash I38Hggx: Will try to unclog tube with wire brush, if fails would then strongly considerdiscussion with family regarding merits and risks of surgical placement. Thank you for the consultation. Please call with any questions.Signed by: Diogo Collins MD 04/22/2019 9:52 AM Name Value Range Interpretation Code Description Data [facility] Document(s ) ID Date Data Source [id number] 04/22/2019 07:32:37 AM [facility] Bedside and Verbal shift change report g ankit to Aneta Mcdonald RN (oncoming nurse) Imani Regalado RN (offgoing nurse). Report i ncluded the following informationSBAR and Kardex. Name Value Range Interpretation Code Description Data [facility] Supporting Document(s ) ID Date Data Source [id number] 04/22/2019 07:31:22 AM [facility] Review BIPAP settings, alarms and skin a dhesive with next shift RT ThomasGeorge BiPAP wiped down with bleach wipes Name Value Range Interpretation Code Description Data [facility] rce(s) Supporting Document(s ) ID Date Data Source [id number] 04/22/2019 03:07:29 AM [facility] Check the patient with RN Marni alonso For any skin breakdown while using theBiPAP mask. RN aware of two finger tech to mas k tightness,and use of mask clipsfor any interventions Name Value Range Interpretation Code Description Data [facility] Supporting Document(s ) ID Date Data Source [id number] 04/22/2019 01:13:31 AM [facility] Progress NotePatient: Evelio Carlin Sex: male DOA: 04/19/2019Date of : 1950 A ge: 68 y.o. :[id number]:Reyes Carlin is 68 y.o. male who was transferred by EMS from [facility] withfever,h ypoxia, O2 SAT 83 % , [...] sheath in situ. Through the sheatha 5 Emirati double-lumen 20 cm midl ine catheter was placed. The peel-away sheathwas removed. The catheter was sewn into position using 2-0 silk sutures. Thepatient tolerated the procedure. Ther e were no complications at the time of theprocedure. FINDINGS: Ultrasound inter rogation revealed a widely patent brachialvein above the antecubital fossa . A 5 Emirati dual-lumen 20 cm midline catheterwas placed. The tip was placed i n good position over the right axillary vein.IMPRESSION: 5 Emirati dual-lumen mid line catheter placed with tip positioned overthe right axillary vein.Ct Chest Abd Pelv Wo ContResult Date: 04/20/2019Referring Physician: MILI HILLS Patient Name: EVELIO CARLIN FINAL REPORTFROM IMAGING RESIDENTIAL SALES REPRESENTATIVE EXAM: CT chest without contrast and CT [...] 04/20/2019 22:43 GINA VerdePlease call Katja ging Canal Structure Operator [phone] with questions. This reportwas electronically signed by: [...] nebulizer suspension 500 mcg NebulizationBID RT pantoprazole (PA OTONIX) 40 mg in 0.9% sodium chloride [...] (MBP/ADV) 100mL MBP 3.3 75 g IntraVENous K1QHjhnoujpkc/Plan:Hospital Problems Date Reviewed: 04/21/2019 Codes Class Noted POA Scrotal rash ICD-10-CM: K51RGA-7-CK: 782.1 04/21/2019 Yes COPD wi th acute [...] regarding placement of jejuneostomy tubeStart TF -Avel oGnzalez y 2019Time: 11:56 PM Name Value Range Interpretation Code Description Data Harriett rce(s) Supporting Document(s ) ID Date Data Source [id number] 04/21/2019 08:51:51 PM EST [facility] Progress NoteMID-[facility] ,P.C.Krystian Monae MD., F.C.C.P.Stella Hamilton MD., F.C.C.P. [address] [place] [id number] [place] [address] [phone]: Evelio Carlin Sex: male DOA: [...] byinhalation two (2) times a day. Provider, dEieclorazepate (TRANXENE) 3.75 mg tablet 1 Tab by [...] hrs : BP Temp Pulse Resp SpO2 Kzvwau32/07/20 1932 118/66 98 F (36.7 C) 90 [...] Procedure Component Value Units Date/Time CULTURE, BLOOD [[id number]] Collected: 04/20/19 1440 Order Status: Completed Specimen: Blood Updated: 11/01 1311 Special Requests: NO SPECIAL REQUESTS Culture result: NO GROWTH AFTE R 22 HOURS CULTURE, BLOOD [[id number]] Collected: 04/20/19 1447 Order Status: Completed Specimen: Blood Updated: 04/21/19 1311 Special Requests: NO SPEC IAL REQUESTS Culture result: NO GROWTH AFTER 22 HOURS CULTURE, BLOOD [[id number]] (Ab normal) Collected: 04/19/19 1015 Order Status: Completed Specimen: Blood Upda mikel: 04/21/19 0753 Special Requests: NO SPECIAL REQUESTS GRAM STAIN GRAM POSIT BRITNI COCCI IN CLUSTERS ANAEROBIC BOTTLE CALLED TO AND READ BACK BY ROB KNOX, RN, ED, AT 0953 ON 04/20/19 TORISMIRAGLIA Culture result: GRAM POS ITIVE COCCI IDENTIFICATION AND SUSCEPTIBILITY TO FOLLOW CULTURE, BLOOD [[id number]] Col lected: 04/19/19 1005 Order Status: Completed [...] sheath in situ. Through the sheatha 5 Emirati double-lumen 20 cm midl ine catheter was placed. The peel-away sheathwas removed. The catheter was sewn into position using 2-0 silk sutures. Thepatient tolerated the procedure. Ther e were no complications at the time of theprocedure. FINDINGS: Ultrasound inter rogation revealed a widely patent brachialvein above the antecubital fossa . A 5 Emirati dual-lumen 20 cm midline catheterwas placed. The tip was placed i n good position over the right axillary vein.IMPRESSION: 5 Emirati dual-lumen mid line catheter placed with tip positioned overthe right axillary vein.Ct Chest Abd Pelv Wo ContResult Date: 04/20/2019Referring Physician: MILI HILLS Patient Name: EVELIO CRALIN FINAL REPORTFROM IMAGING RESIDENTIAL SALES REPRESENTATIVE EXAM: CT chest without contrast and CT [...] 04/20/2019 22:43 GINA VerdePlease call Katja berger Canal Structure Operator [phone] with questions. This reportwas electronically signed by: [...] chloride (MBP/ADV) 100mL MBP 3.375 g IntraVENous U6EBcajam Problems: Pneumonia (11/08/2018) Acute hypoxemic respiratory failure (HCC) (02/2019) COPD with acute exacerbation (HCC) (04/19/2019) Acute on chronic respiratory failure with hypoxia and hypercapnia (HCC)(04/19/2019) Scrotal rash (04/21/2019) Assessment:1. ACUTE HYPERCAPNIC AND HYPOXIC RESPIRATORY FAILURE2. ATELECTAS IS L L L3. SEVERE COPD4. MENTAL RETARDATION5. PNEUMONIA6. SEPSIS L A = 2.57. METABOLIC ENCEPHALOPATHY8. HX P. E9. 9 AC RESP VWHTTHXV23. BACTEREMIA G + COCCI Plan: 1.BIPAP SUPPORT IPAP = 14 CM , EPAP= 7 CM ,RATE = 20 . MT FIO 2 = 70 %2. DUO NEB Q 4 H3. MUCOMYST 10 % VIA MINI NEB Q 8 H4. IV ZOSYN AND VANC OMYCIN5. CONT BIPAP SUPPORT AT NIGHT , DISCUSSED WITH STAFF , ORDERS FORBIOPA P GIVEN Krystian Monae MD F.C.C.P.April 21, 20198:45 PM Name Value Range Interpretation Code Description Data Harriett rce(s) Supporting Document(s ) ID Date Data Source [id number] 04/21/2019 08:44:15 PM EST [facility] Progress NoteMID-[facility]. ,P.C.Krystian Monae MD., F.C.C.P.Stella Hamilton MD., F.C.C.P. [address] [place] [address] [place], [place] [phone]: Evelio Carlin Sex: male DOA: [...] hrs : BP Temp Pulse Resp SpO2 Lvkawl00/07/20 1932 118/66 98 F (36.7 C) 90 [...] Procedure Component Value Units Date/Time CULTURE, BLOOD [[id number]] Collected: 04/20/19 1440 Order Status: Completed Specimen: Blood Updated: 11/01 1311 Special Requests: NO SPECIAL REQUESTS Culture result: NO GROWTH AFTE R 22 HOURS CULTURE, BLOOD [[id number]] Collected: 04/20/19 1447 Order Status: Completed Specimen: Blood Updated: 04/21/19 1311 Special Requests: NO SPEC IAL REQUESTS Culture result: NO GROWTH AFTER 22 HOURS CULTURE, BLOOD [[id number]] (Ab normal) Collected: 04/19/19 1015 Order Status: Completed Specimen: Blood Upda mikel: 04/21/19 0753 Special Requests: NO SPECIAL REQUESTS GRAM STAIN GRAM POSIT BRITNI COCCI IN CLUSTERS ANAEROBIC BOTTLE CALLED TO AND READ BACK BY ROB KNOX RN, ED, AT 0953 ON 04/20/19 TORISMIRAGLIA Culture result: GRAM POS ITIVE COCCI IDENTIFICATION AND SUSCEPTIBILITY TO FOLLOW CULTURE, BLOOD [[id number]] Col lected: 04/19/19 1005 Order Status: Completed [...] sheath in situ. Through the sheatha 5 Emirati double-lumen 20 cm midl ine catheter was placed. The peel-away sheathwas removed. The catheter was sewn into position using 2-0 silk sutures. Thepatient tolerated the procedure. Ther e were no complications at the time of theprocedure. FINDINGS: Ultrasound inter rogation revealed a widely patent brachialvein above the antecubital fossa . A 5 Emirati dual-lumen 20 cm midline catheterwas placed. The tip was placed i n good position over the right axillary vein.IMPRESSION: 5 Emirati dual-lumen mid line catheter placed with tip positioned overthe right axillary vein.Ct Chest Abd Pelv Wo ContResult Date: 04/20/2019Referring Physician: MILI HILLS Patient Name: EVELIO CARLIN FINAL REPORTFROM IMAGING RESIDENTIAL SALES REPRESENTATIVE EXAM: CT chest without contrast and CT [...] 04/20/2019 22:43 GINA VerdePlease call Katja berger Canal Structure Operator [phone]) with questions. This reportwas electronically signed by: [...] chloride (MBP/ADV) 100mL MBP 3.375 g IntraVENous H0DNxkhag Problems: Pneumonia (11/08/2018) Acute hypoxemic respiratory failure [...] Supporting Document(s ) ID Date Data Source [id number] 04/21/2019 08:41:13 PM EST [facility] Problem: Pressure Injury - Risk ofGoal: [...] Name Value Range Interpretation Code Description Data [facility] rce(s) Supporting Document(s ) ID Date Data Source [id number] 04/21/2019 07:37:41 PM EST [facility] Bedside and Verbal shift change report carol pham to Marni Regalado (oncoming nurse)by Aneta Mcdonald (offgoing nurse). Report includ ed the following information SBAR,Kardex and MAR. Name Value Range Interpretation Code Description Data [facility] rce(s) Supporting Document(s ) ID Date Data Source [id number] 04/21/2019 07:04:30 PM EST [facility] ID Progress Note04/21/2019Subjective:Awake non verbal,off BiPAPAfebrileBlood cultures positive for gram positive cocci in clus ters.Objective:Review of SystemsPatient is unable to provideVitals:Patient Vitals f or the past 24 hrs: BP Temp Pulse Resp SpO2 Ptcnqc81/07/20 1554 112/50 98.3 F (36.8 C) 66 [...] (MBP/ADV) 100mL MBP 3.3 75 g IntraVENous I6BTash:Recent Labs 04/20/200330 04/19/200915WBC 12.8* 8.1HG B 10.1* [...] Name: EVELIO CARLIN FINAL RE PORTFROM IMAGING RESIDENTIAL SALES REPRESENTATIVE EXAM: CT chest without contrast and CT [...] 04/20/2019 22:43 GINA VerdePlease call Katjadevang berger Canal Structure Operator [phone]) with questions. This reportwas electronically signed by: Marcie Edge MD 04/20/2019 10:44 PMAssessment: Staph sepsis. Aspiration pneumonia. Acute COPD exacerbation. Acute respiratory failure. Dysphagia s. Plan: 1. Continue Iv vancomycin and zosyn2. Follow culturesFomalaika Dudley MDJanuary 20195: 16 PM Name Value Range Interpretation Code Description Data Harriett rce(s) Supporting Document(s ) ID Date Data Source [id number] 04/21/2019 04:58:41 PM EST [facility] CONSULT NOTENAME: Evelio VierascottbeinDOB: 1Sex: maleMRN: [id number]: 04/19/2019ATTENDING: Mili Hills DOPC P: Mili Hills DODate/Time: 04/21/2019 4:49 PMSubjective:REASON FOR CONSULT:Ivelisse stauffer is a 68 y.o. male who I was asked to see for possible feedingjejunostomy tube jocelyn cement.He is with extensive past medical history, [facility], [facility] [...] 5,000 unit/mL injection 1 mL bySubCUTAneous ro [place] every twelve (12) hours every twelve (12) [...] nebulizer suspension 500 mcg NebulizationBID RT pantoprazole (PA OTONIX) 40 mg in 0.9% sodium chloride [...] (MBP/ADV) 100mL MBP 3.3 75 g IntraVENous E5JVEBRWA OF SYSTEMS:As per HPIObjective:VITALS:Visit VitalsBP 112/5 0 [...] Patient Name: EVELIO CARLIN FINAL REPORTFROM IMAGING RESIDENTIAL SALES REPRESENTATIVE EXAM: CT ches t without contrast and [...] muscle swelling with possiblehematoma and [facility] 117/120. Degenerative bonychanges. Multiple likely [...] 04/20/2019 22:43 GINA VerdePlease call Katjadevang berger Canal Structure Operator ..TELERAD ([phone]) with questions. This reportwas electronically signed by: [...] this patients care and please callme on [phone] with questions an d concerns Kareen Mills MDJanuary 20194:49 PM Name Value Range Interpretation Code Description Data Harriett rce(s) Supporting Document(s ) ID Date Data Source [id number] 04/21/2019 04:20:06 PM EST [facility] Feedings started at 30ml/hr. Name Value Range Interpretation Code Description Data Harriett rce(s) Supporting Document(s ) ID Date Data Source [id number] 04/21/2019 03:16:03 PM [facility] RECOMMENDATIONS:Osmolite 1.5 at 25 mL/hr progressing toward [...] or ethnic dietary needs identified [] Cultural, yarsanism and ethnic food pre ferences identified and addressed [] Participated in care plan, discharge jocelyn nning/Interdisciplinary roundsAlexa R Sunny, RD Name Value Range Interpretation Code Description Data Harriett rce(s) Supporting Document(s ) ID Date Data Source [id number] 04/21/2019 02:54:27 PM EST [facility] Consult NotePatient: Evelio Vieraesperanza Sex: male DOA: 04/19/2019Date of : 1950 A ge: 68 y.o. LOS: LOS: 2 daysHPI:Evelio Carlin is a 68 y.o. m fuentes who has been seen for evaluation of scrotalskin breakdown. [facility] with [facility] failure. He isawake but [...] nebulizer suspension 500 mcg NebulizationBID RT pantoprazole (PA OTONIX) 40 mg in 0.9% sodium chloride [...] sheath in situ. Through the sheatha 5 Emirati double-lumen 20 cm midl ine catheter was placed. The peel-away sheathwas removed. The catheter was sewn into position using 2-0 silk sutures. Thepatient tolerated the procedure. Ther e were no complications at the time of theprocedure. FINDINGS: Ultrasound inter rogation revealed a widely patent brachialvein above the antecubital fossa . A 5 Emirati dual-lumen 20 cm midline catheterwas placed. The tip was placed i n good position over the right axillary vein.IMPRESSION: 5 Emirati dual-lumen mid line catheter placed with tip positioned overthe right axillary vein.Ct Chest Abd Pelv Wo ContResult Date: 04/20/2019Referring Physician: MILI HILLS Patient Name: EVELIO CARLIN FINAL REPORTFROM IMAGING RESIDENTIAL SALES REPRESENTATIVE EXAM: CT chest without contrast and CT [...] 04/20/2019 22:43 GINA VerdePlease call Katja berger Canal Structure Operator [phone]) with questions. This reportwas electronically signed by: [...] (HCC) (03/25/2019) COPD with acute exacerbati on ([facility]) (04/19/2019) Acute on chronic respiratory failure with hypoxia and hyp ercapnia ([facility])(04/19/2019)PlanBAZA AF to the scrotal rash twice dailyContinue prevent britni and supportive carePlease re consult if situation changes. Name Value Range Interpretation Code Description Data [facility](s) Supporting Document(s ) ID Date Data Source [id number] 04/21/2019 01:53:15 PM [facility] Problem: Falls - Risk ofGoal: *Absence [...] Name Value Range Interpretation Code Description Data [facility](s) Supporting Document(s ) ID Date Data Source [id number] 04/21/2019 12:56:44 PM [facility] The patient's Clinical Indicators includ e:Acute respiratory failure and sepsis noted in documentation. Please link allorgan t o sepsis ifapplicable.>> Acute respiratory failure due to sepsis>> Acute respirator y failure due to other (please specify)>> Other>> Unable to determine>> Unknown Name Value Range Interpretation Code Description Data [facility](s) Supporting Document(s ) ID Date Data Source [id number] 04/21/2019 11:15:22 AM [facility] Care Management InterventionsPCP Verifie d by CM: YesMode of Transport at Discharge: BLS([facility] )Transition of Care Consult (CM Consult): Discharge PlanningMyChart Signup: NoDischarge Dura ble Medical Equipment: NoPhysical Therapy Consult: NoOccupational Therapy Consult: NoSpeech Therapy Consult: NoCurrent Support Network: Nursing Facility([facility] )The Patient and/or Patient Software Applications Engineer was Provided with a Choice of Provideran d Agrees with the Discharge Plan?: YesFreedom of Choice List was Provided with Basic D ialogue that Supports thePatient's Individualized Plan of Care/Goals, Treat ment Preferences and Sharesthe Quality Data Associated with the Providers?: YesVeter an Resource Information Provided?: RefusedDischarge LocationDischarge Place ment: [facility] facility([facility] )CASE MANAGEMENT PSYCHOSOCIAL ASSESSMENT Evelio Carlin Admission Date: 04/19/2019MRN: [id number] of : 1950urrent date: 04/21/2019DISCHARGE PLAN: Pt is fro m Only longterm, pt is non verbal and nonambulatory. Per liaison pt can return at discharge. TC to pt relative [phone], they would like pt t o return to [place] at discharge. Theyfamily will be around for [...] monthsPCP: Mili Hills DOAdmitting Provider: ELIAN Gonzalez [facility] INCHOMECARE INVESTIGATION LIEUTENANT: NAPayor: [place] / [place] B/ Product Type: [...] (HCC) J44.1 Sepsis due to undetermined organism ([facility]) A41.9 Generalized anxiety disorder F41.1 Acute respiratory failur e with hypoxia ([facility]) J96.01 Pneumonia involving right lung J18.9 Hyponatremia E87.1 SOB (shortness of breath) R06.02 Pressure injury of right heel, stage 2 ( [facility]) L89.612 Leg wound, right, initial encounter S81.801A Acute hypoxemic resp iratory failure ([facility]) J96.01 COPD with acute exacerbation ([facility]) J44.1 Acute on chron ic respiratory failure with hypoxia and hypercapnia ([facility])J96.21, J96.22Social Hi storySubstance and Sexual ActivityAlcohol Use NoNumber of stairs into patient home:DME :Cohabitants:Abuse Screen:Physical Abuse/Neglect: Patient unable to answerS exual Abuse: Patient unable to answerVerbal Abuse: Patient unable to answerOther Abu se/Issues: Patient unable to answerINSURANCE INFORMATION: (Verification)Primary Note s: MedicareSecondary Notes: Medicaid [facility] Notes:No-Fault Notes:SS D Notes:Un-Insured Notes:Long-Term Care Insurance If Applicable Notes:Current Fu nctioning:Language barriers: Notes:Understanding nature/impact of ill ness: Notes:Ability to participate in plan: Notes:Realistic Problem solving and plan keith: Notes:Adequate coping skills: Notes:Confucianist/Cultural barriers: Notes :If unable to assess or not applicable: Notes:Suicide Assessment:Primary Diagnos is or Primary Complaint of an Emotional Behavior Disorder: NoPatient is Currentl y Experiencing Depression: NoSuicidal Ideation/Attempts: NoHomicidal Ideation/ Attempts: NoAlcohol/Drug Intoxication: NoHallucinations/Delusions: NoPending, A ctive, or Temporary Correction Orders: NoAggressive/Inappropriate Behavior: NoR eadmit Risk:Support Systems: Family member(s)Relationship with Primary Physi chaya Group: Seen at least one time within themtst 6 monthsRRAT Total Score: 26Adva nced Care Planning:Confirm Advance Directive: Yes, not on file(to be scanned on admiss ion)Does the patient have other document types: MOST/MOLST/POST/POLST(Wishes full code.)Discussed with the patient and all questions fully answered. Name Value Range Interpretation Code Description Data [facility] rce(s) Supporting Document(s ) ID Date Data Source [id number] 04/21/2019 07:51:56 AM [facility] Verbal shift change report given to a matilda graham rn (oncoming nurse) by - BUSHRA COONEYRN (offgoing nurse). Report given with SBA R, Kardex, MAR and Recent Results. Name Value Range Interpretation Code Description Data [facility](s) Supporting Document(s ) ID Date Data Source [id number] 04/20/2019 10:44:00 PM [facility] Referring Physician: MILI miller Name: EVELIO RUBININAL [...] Edge MD04/20/2019 22:43 ESTM.D. Please call Imaging Canal Structure Operator [phone] ([phone]) withquestions.This report was electronically signed by:Marcie Edge MD 04/20/2019 10:44 PM Signing date/time: 04/20/2019 10:44 PMSigned by: MARCIE EDGE Name Value Range Interpretation Code Description Data Harriett rce(s) Supporting Document(s ) ID Date Data Source [id number] 04/20/2019 09:07:34 PM EST [facility] [id number] [facility] [address] [facility] [address] [phone] Evelio Carlin (Male) [id number] ES I 2 ED Dispo:ADMIT Chief Complaint: Respiratory Distress Diagnosis: Acute exacerbation of chronic obstructive pulmonary disease (CO PD) (HCC) [] Acute hypoxemic respiratory failure (HCC) [] Pneumonia of both lower lobes due to infectious organism (HCC) [] Current Providers: Attending : Gaston Marinelli; Eloisa Hills Consulting Provider: Eloisa Hills; Nicole Monae; Sabrina Dudley; Mireya Gomez Nurse Practitioner: Devang Coleman Primary Nurse: Gaston Reynolds; Devang Onofre; Eloisa Phoenix; Kd Ledezma; Eloisa Bravo Tech: CAESAR AliceaN: [id number] Print Group [id number] - [facility] Medva MrnMRN: [id number] Print [employer] 500 [id number] - [facility] Age SexDOB 1950 AGE 68 SEX Male Primary Care Provider: Mili Hills DO Eubcgcoyh: (No Known Allergies)Date Reviewed: 04/20/2019Reviewed by: Mili Hills DO - Review CompleteED Provider Notes: All notesHNO ID: [id number]: Neeta Coleman NPServi ce: Emergency MedicineAuthor Type: [...] brought to the ED via EMS from [facility] forevaluation of respiratory distress. It is [...] file Gets together: Not on file Attends yarsanism service: Not on file Active member of [...] mg daily. Via G tube 12/14 10/31 Mlii Hills DOalbuterol- ipratropium (DUO-NEB) 2.5 mg-0.5 mg/3 [...] TC Calculation (Bezet) 424 ms Calculated P [place] 44 degrees Calculated R [place] 26 degrees Calculated T [place] -44 degrees Diagnosis Sinus rhythmBorderline short PA intervalLVH with secondary repolarization abnormalityProb able anterior [...] PRESSURE SUPPORT 14 RATE 20 Performed by [id number] iology:Xr Chest PortResult Date: 04/19/2019History: Respiratory difficulty. [...] every 4 hours fo r feverDuo Neb, Wpasavqmom22:58 new T wave inversion in leads III, V1, V3, V4, -6 possibly due todemand ischemi a. Troponin added to labs.10:45 ABG consistent with COPD exacerbation. PCO2 5511:38 AMOxygen saturation is impr kathie. Will repeat ABG and potentially lower CCQ0unth 70 %. Patient appears to be breathing easier with BiPa p. Dr Hillsconsulted for admission orders.CXR demonstrates bibasilar infiltrates. No ebyayygtcrrw47:32 PMPati ent is endorsed to Dr Hills for admissionFinal Impression/Diagnosis:Encounter Diagnoses ICD-10-CM ICD-9-CM1. Acute exacerbation of chronic obstructive pulmonary disease (COPD)(HCC) J44.1 491. 212. Acute hypoxemic respiratory failure ([facility]) J96.01 518.813. Pneumonia of both lower lobes due to inf ectious organism ([facility]) J18.1483.8Patient condition at time of disposition: Neeta Stern,att est that all of the information above [facility] under the supervision of Faisal Marinelli MD. I have o rdered andreviewed the diagnostic studies, unless otherwise noted.Neeta Coleman MSN, SPINNER CAP FRAME-BC, ENP-RILEY Orders MD69 SEPSIS BUNDLE INITIATED IN ED [#[id number]] Priority: STAT Class: Hospital Performe d Standing Order Information Remaining Occurrences:0/1 Interval:CONTINUOUS Last release d:04/19/2019 Released orders: [place] Apr 19, 2019 9:51 AM by: NEETA COLEMAN MD69 SEPSIS BUNDL E INITIATED IN ED [#[id number]] Priority: STAT Class: Hospital Performed Released on: 04/19 9:51 AM CHELSIE NO VTE PROPHYLAXIS NEEDED [#[id number]] Priority: STAT Class: H ospital Performed Standing Order Information Remaining Occurrences:0/1 Interval:CONTIN UOUS Last released:04/20/2019 Released orders: SatApr 20, 2019 8:37 AM by: JUAN SCHULZ NO VTE PROPHYLAXIS NEEDED [#[id number]] Priority: STAT Class: Hospital Performe d Released on: 04/20/2019 8:37 AM [id number] CULTURE, BLOOD [#[id number]] Priority: STAT Class: ER Collect Specimen Source: Blood Standing Order Information Remaining Occurrences:0 /1 Interval:NOW Last released:04/19/2019 Released orders: Sun Apr 19, 2019 9:51 AM by: NEETA COLEMAN [id number] CULTURE, BLOOD [#[id number]] Priority: STAT Class: E R Collect Specimen Source: Blood Standing Order Information Remaining Occurrences:0/1 Inter seema:NOW Last released:04/19/2019 Released orders: Sun Apr 19, 2019 9:51 AM by: NEETA COLEMAN [id number] CULTURE, BLOOD [#[id number]] Priority: STAT Class: ER Collect Speci men Source: Blood Specimen Collected: 04/19/2019 10:15 AM Resulting Agency: [facility] Test ID: HBCS Released on: 04/19/2019 9:51 AM [id number] CULTURE, BLOOD [# [id number]] Priority: STAT Class: ER Collect Specimen Source: Blood Specimen Collected: 04/19/2019 10 :05 AM Resulting Agency: [facility] Test ID: HBCS Released on: 04/19/2019 9:51 AM [id number] CULTURE, BLOOD [#[id number]] Priority: STAT Class: ER Collect Speci men Source: Blood Standing Order Information Remaining Occurrences:0/1 Interval:ONE TI ME Last released:04/20/2019 Released orders: SatApr 20, 2019 2:12 PM by: NOA GOMEZ [id number] CULTURE, BLOOD [#[id number]] Priority: STAT Class: ER Collect Speci men Source: Blood Standing Order Information Remaining Occurrences:0/1 Interval:ONE TI ME Last released:04/20/2019 Released orders: SatApr 20, 2019 2:12 PM by: NOA GOMEZ [id number] CULTURE, BLOOD [#[id number]] Priority: STAT Class: ER Collect Speci men Source: Blood Specimen Collected: 04/20/2019 2:40 PM Resulting Agency: [facility] Test ID: HBCS Released on: 04/20/2019 2:12 PM [id number] CULTURE, BLOOD [# [id number]] Priority: STAT Class: ER Collect Specimen Source: Blood Specimen Collected: 04/20/2019 2 :47 PM Resulting Agency: [facility] Test ID: HBCS Released on: 04/20/2019 2:12 PM [id number] LACTIC ACID [#[id number]] Priority: STAT Class: ER Collect Sta nding Order Information Remaining Occurrences:0/2 Interval:EVERY 4 HRS Last release d:04/19/2019 Released orders: Sun Apr 19, 2019 12:05 PM by: NEETA COLEMAN Apr 19, 2019 9:51 AM by: NEETA COLEMAN [id number] URINALYSIS W/ RFLX MICROSCOPIC [#[id number]] Prior ity: STAT Class: ER Collect Standing Order Information Remaining Occurrences:0/1 Inter seema:ONE TIME Last released:04/19/2019 Released orders: Sun Apr 19, 2019 9:51 AM by: NEETA LOZANO [id number] CBC WITH AUTOMATED DIFF [#[id number]] Priority: STAT Class: ER Collect Standing Order Information Remaining Occurrences:0/1 Interval:ONE TIME Last released:0 04/19/2019 Released orders: Sun Apr 19, 2019 9:51 AM by: NEETA COLEMAN [id number] METABOLIC PA SAADIA, COMPREHENSIVE [#[id number]] Priority: STAT Class: ER Collect Standing Order Information Remaining Occurrences:0/1 Interval:ONE TIME Last released:04/19/2019 Released orders : Sun Apr 19, 2019 9:51 AM by: NEETA COLEMAN [id number] LACTIC ACID [# [id number]] Priority: STAT Class: ER Collect Specimen Source: Plasma Specimen Collected: 04/19/2019 1 0:15 AM Resulting Agency: [facility] Test ID: LAC Released on: 04/19/2019 9:51 AM [id number] URINALYSIS W/ RFLX MICROSCOPIC [#[id number]] Priority: STAT Class: ER Collect Speci men Source: Urine Specimen Collected: 04/19/2019 4:56 PM Resulting Agency: [facility] Test ID: UA Released on: 04/19/2019 9:51 AM [id number] CBC WITH AUTOMATED DIFF [#[id number] ] Priority: STAT Class: ER Collect Specimen Source: Whole Blood Specimen Collected: 04/19/2019 10:15 AM Resulting Agency: [facility] Test ID: CBCXA Released on: 04/19/2019 9:51 AM [id number] METABOLIC PANEL, COMPREHENSIVE [#[id number]] Priority: STAT Class: ER Collect Specimen Source : Plasma Specimen Collected: 04/19/2019 10:15 AM Resulting Agency: [facility] Test ID: MPL Released on: 04/19/2019 9:51 AM [id number] BLOOD GAS, ARTERIAL [#[id number]] Priority: STAT Class: ER Collect Standing Order Information Remaining Occurrences:0/1 Inte rval:ONE TIME Last released:04/19/2019 Released orders: Sun Apr 19, 2019 9:51 AM by: NEETA SHELDON [id number] BLOOD GAS, ARTERIAL [#[id number]] Priority: STAT Class: E R Collect Released on: 04/19/2019 9:51 AM [id number] BLOOD GAS, ARTERIAL [#[id number]] Priority: Routine Class: ER Collect Resulting Agency: [facility] Test ID: ABGG1 Standing Order Information Remaining Occurrences:0/1 Released orders: SatApr 19, 2019 10:45 AM by: Automatic Batch Process [id number] BLOOD GAS, ARTERIAL [#[id number]] Priority: Routine Class: ER Collect Specimen Source: Arterial Blood Specimen Collected: 04/19/2019 10 :45 AM Resulting Agency: [facility] Test ID: ABGG1 Released on: 04/19/2019 10:45 A M [id number] TROPONIN I [#[id number]] Canceled Priority: Add On Class: ER Collect Canceled by [facility] on SatApr 19, 2019 12:07 PM Reason: Other Comment : Added to previous accession Standing Order Information Remaining Occurrences:0/1 Inter seema:ONE TIME Last released:04/19/2019 Released orders: SatApr 19, 2019 11:44 AM by: NEETA LOZANO [id number] TROPONIN I [#[id number]] Canceled Priority: STAT Blood in Lab Class: ER Collect Specimen Collected: 04/19/2019 11:45 AM Resulting Agency: [facility] Test ID: TROIP Canceled by [facility] on SatApr 19, 2019 12:07 PM Reason: Other Comment: Added to previous accession Released on: 04/19/2019 11:44 AM [id number] BLOOD GAS, ARTERIAL [#[id number]] Priority: STAT Class: ER Collect Standing Order Information Remaining Occurrences:0/1 Interval:ONE TIME Last released:04/19/2019 Released orders : SatApr 19, 2019 11:46 AM by: NEETA COLEMAN [id number] BLOOD GAS, ARTERIAL [# [id number]] Priority: STAT Class: ER Collect Released on: 04/19/2019 11:46 AM [id number] TROPONIN I [#[id number]] Priority: STAT Blood in Lab Class: ER Collect Resulting Agency : [facility] Test ID: TROIP Standing Order Information Remaining Occurrences:0 /1 Released orders: SatApr 19, 2019 10:15 AM by: Automatic Batch Process [id number] TROPON IN I [#[id number]] Priority: STAT Blood in Lab Class: ER Collect Specimen Sour ce: Plasma Specimen Collected: 04/19/2019 10:15 AM Resulting Agency: [facility] Test ID: TROIP Released on: 04/19/2019 10:15 AM [id number] LACTIC ACID [#[id number]] Priority: STAT Class: ER Collect Specimen Source: Plasma Specimen Collected: 04/19/2019 2:20 PM Resultin g Agency: [facility] Test ID: LAC Released on: 04/19/2019 12:05 PM [id number] BLOOD GAS, ARTERIAL [#[id number]] Priority: Routine Class: ER Collect Resulting Agency: [facility] Test ID: ABGG1 Standing Order Information Remaining Occurrences:0 /1 Released orders: SatApr 19, 2019 4:59 PM by: Automatic Batch Process [id number] BLOOD GAS, ARTERIAL [#[id number]] Priority: Routine Class: ER Collect Specimen Source: Rosette rial Blood Specimen Collected: 04/19/2019 4:59 PM Resulting Agency: [facility] Test ID: ABGG1 Released on: 04/19/2019 4:59 PM [id number] TROPONIN I [#[id number]] Priority: Routine Class: ER Collect Standing Order Information Remaining Occurrences:0/1 Inte rval:ONE TIME Last released:04/20/2019 Released orders: SatApr 20, 2019 1:22 AM by: MILI VERGARA [id number] CBC WITH AUTOMATED DIFF [#[id number]] Priority: Routine Class : ER Collect Standing Order Information Remaining Occurrences:0/1 Interval:ONE TI ME Last released:04/20/2019 Released orders: SatApr 20, 2019 1:22 AM by: PATRICIO HILLS [id number] MAGNESIUM [#[id number]] Priority: Routine Class: ER Collect Standing Order Information Remaining Occurrences:0/1 Interval:ONE TIME Last released:0 04/20/2019 Released orders: SatApr 20, 2019 1:22 AM by: MILI HILLS [id number] RENAL FUNC TION PANEL [#[id number]] Priority: Routine Class: ER Collect Standing Order Information Remaining Occurrences:0/1 Interval:ONE TIME Last released:04/20/2019 Released orders : SatApr 20, 2019 1:22 AM by: MILI HILLS [id number] TROPONIN I [# [id number]] Priority: Routine Class: ER Collect Specimen Source: Plasma Specimen Collected: 04/20/2019 4:30 AM Resulting Agency: [facility] Test ID: TROIP Released on: 04/20/2019 1: 22 AM [id number] CBC WITH AUTOMATED DIFF [#[id number]] Priority: Routine Class: ER Collect Sp ecimen Source: Whole Blood Specimen Collected: 04/20/2019 4:30 AM Resulting Agency: [facility] Test ID: CBCXA Released on: 04/20/2019 1:22 AM [id number] MAGNESIUM [#[id number]] Priority: Routine Class: ER Collect Specimen Source: Plasma Specimen Collected: 09/2019 4:30 AM Resulting Agency: [facility] Test ID: MGPL Released on: 04/20/2019 1:22 AM [id number] RENAL FUNCTION PANEL [#[id number]] Priority: Routine Class: ER Collect Specimen Source: Plasma Specimen Collected: 04/20/2019 4:30 AM Resulting Agency: [facility] Test ID: RENLP Released on: 04/20/2019 1:22 AM [id number] STARCH AND PROSIZE MIXER - ED ONLY [#[id number]] Priority: STAT Class: Hospital Performed Standing Order Information Remainin g Occurrences:0/1 Interval:Continuous Last released:04/19/2019 Released orders : Karla Apr 19, 2019 9:51 AM by: NEETA COLEMAN Type: -> Bedside [id number] VITAL SIGNS [#[id number]] Priority: Routine Class: Hospital Performed Standing Order Information Remaining Occurrences:0/1 Interval:EVERY HOUR Last released:04/19/2019 Released o rders: Karla Apr 19, 2019 9:51 AM by: NEETA COLEMAN [id number] STRICT I & O [# [id number]] Priority: Routine Class: Hospital Performed Standing Order Information Remaining Occurre nces:0/1 Interval:CONTINUOUS Last released:04/19/2019 Released orders: Karla Apr 19 9:51 AM by: NEETA [id number] NEUROLOGIC STATUS ASSESSMENT [#[id number]] Prio rity: Routine Class: Hospital Performed Standing Order Information Remaining Occurrences:0/1 Interval:EVERY HOUR Last released:04/19/2019 Released orders: Karla Apr 19, 2019 9:51 AM by: NEETA COLEMAN [id number] STARCH AND PROSIZE MIXER - ED ONLY [#[id number]] Priority: STAT Class: H ospital Performed Type: -> Bedside Released on: 04/19/2019 9:51 AM [id number] VITAL SIGNS [#[id number]] Priority: STAT Class: Hospital Performed Released on: 04/19/2019 9: 51 AM [id number] STRICT I & O [#[id number]] Priority: STAT Class: Hospital Performe d Released on: 04/19/2019 9:51 AM [id number] NEUROLOGIC STATUS ASSESSMENT [#[id number]] Prio rity: STAT Class: Hospital Performed Released on: 04/19/2019 9:51 AM [id number] CARDIAC MONITORING [#[id number]] Priority: STAT Class: Hospital Performed Standing Order Information Remaini ng Occurrences:0/1 Interval:Expires 24 Hours Last released:04/19/2019 Released orders : Sun Apr 19, 2019 1:32 PM by: MILI HILLS Type: -> Bedside [id number] CARDIAC MONITORING [#[id number]] Priority: STAT Class: Hospital Performed Type: -> Bedside Relea sed on: 04/19/2019 1:32 PM [id number] VITAL SIGNS PER UNIT ROUTINE [#[id number]] Priority: STAT Cla ss: Hospital Performed Standing Order Information Remaining Occurrences:0/1 Interval:CONTIN UOUS Last released:04/20/2019 Released orders: SatApr 20, 2019 8:37 AM by: JUAN SCHUZL Comment:More frequently if Indicated. [id number] BEDREST, COMPLETE [#[id number] ] Priority: STAT Class: Hospital Performed Standing Order Information Remaining Occurrences:0 /1 Interval:CONTINUOUS Last released:04/20/2019 Released orders: SatApr 20, 2019 8:37 AM by: RAYMOND SCHULZ [id number] NOTIFY PROVIDER: VITAL SIGNS CHANGES [#[id number]] Priority: STAT Class: Hospital Performed Standing Order [...] Less than 120 ml in 4 hours [id number] APPLY/M AINTAIN SEQUENTIAL COMPRESSIO* [#[id number]] Priority: STAT Class: Hospital Performed Standing Order Inf ormation Remaining Occurrences:0/1 Interval:CONTINUOUS Last released:04/20/2019 Relea sed orders: SatApr 20, 2019 8:37 AM by: RAYMOND SCHULZ [id number] VITAL SIGNS PER UNIT ROUTINE [#[id number]] Priority: STAT Class: Hospital Performed Comment:More frequently if Indicated. Released on: 04/20/2019 8:37 AM [id number] BEDREST, COMPLETE [#[id number]] Priority: STA T Class: Hospital Performed Released on: 04/20/2019 8:37 AM [id number] NOTIFY PROVIDER: VITAL SIGNS SCOTT HIDALGO [#[id number]] Priority: STAT Class: Hospital Performed Temp -> [...] 4 hours Released on: 04/20/2019 8:37 AM [id number] APPLY/MAINTAIN SEQUENTIAL COMPR ESSIO* [#[id number]] Priority: STAT Class: Hospital Performed Released on: 04/20/2019 8:37 AM [id number] STRICT I & O [#[id number]] Priority: STAT Class: Hospital Performed Stand ing Order Information Remaining Occurrences:0/1 Interval:CONTINUOUS Last released :04/20/2019 Released orders: SatApr 20, 2019 2:31 PM by: MILI HILLS [id number] STRICT I & O [#[id number]] Priority: STAT Class: Hospital Performed Released on: 04/20 2:31 PM [id number] XR CHEST PORT [#[id number]] Priority: STAT Class: H ospital Performed Standing Order Information Remaining Occurrences:0/1 Interval:ONE TI ME Last released:04/19/2019 Released orders: Sun Apr 19, 2019 9:51 AM by: JOY COLEMAN Reason for Exam -> Sepsis [id number] XR CHEST PORT [#[id number]] Priority: STA T Class: Hospital Performed Specimen Collected: 04/19/2019 10:42 AM Resulting Agency: [facility] Tasha t ID: [id number] Reason for Exam -> Sepsis Released on: 04/19/2019 9:[id number] CHEST A BD PELV WO CONT [#[id number]] Priority: Routine Class: Hospital Performed Standing Order Inf ormation Remaining Occurrences:0/1 Interval:ONE TIME Last released:04/20/2019 Release d orders: SatApr 20, 2019 1:37 PM by: MILI HILLS Reason for Exam -> reduced breath sounds right lung and LLQ tenderness and fullness Type of contrast. PLEASE NOTE: IV contr ast is NOT utilized with thisorder. -> Oral [id number] CT CHEST ABD PELV WO CONT [#[id number]] Priority: Routine Class: Hospital Performed Resulting Agency: [facility] Test ID: [id number] Reason for Exam -> reduced breath sounds right lung and LLQ tenderness and fullness Type of contrast. PLEASE NOTE: IV contrast is NOT utilized with thisorder. -> Oral Released on: 04/20/2019 1:37 PM [id number] EKG, 12 LEAD, INITIAL [#[id number]] Priority: STAT Class: Hospital Performe d Standing Order Information Remaining Occurrences:0/1 Interval:ONE TIME Last released: 04/19/2019 Released orders: [place] Apr 19, 2019 9:51 AM by: NEETA COLEMAN Reason for Exam: -> Sepsis [id number] EKG, 12 LEAD, INITIAL [#[id number]] Priority: STAT Class: Hospital Perfo rmed Specimen Collected: 04/19/2019 9:58 AM Resulting Agency: [facility] Test ID: [id number] Reason for E xam: -> Sepsis Released on: 04/19/2019 9:51 AM IVT11 SALINE LOCK IV [#[id number]] Priority: STAT Class: Hospital Performed Standing Order Information Remaining Occurrences:0 /1 Interval:ONE TIME Last released:04/19/2019 Released orders: [place] Apr 19, 2019 9:51 AM by: NEETA COLEMAN IVT11 SALINE LOCK IV [#[id number]] Priority: STAT Class: Hospital Performed Released on: 04/19/2019 9:51 AM SODIUM CHLORIDE 0.9 % IJ SYRG [ #[id number]] Priority: STAT Class: Normal ACETAMINOPHEN 650 MG RECTAL SUPPOSIT* [#[id number]] Priority: STAT Class: Normal PIPERACILLIN-TAZOBACTAM 3.375 GRAM I* [#[id number]] Priority: STAT Class: Normal Antibiotic Indications -> Sepsis of Unknown Etiology SODIUM CHLORIDE 0.9% BOLUS IV [#[id number]] Priority: STAT Class: Normal METHYLPREDNISOLONE (PF) 125 MG/2 ML * [#[id number]] Priority: STAT Class: Normal IPRATROPIUM-ALBUTEROL 2.5 MG-0.5 MG/* [# [id number]] Priority: STAT Class: Normal MODE OF DELIVERY -> IPPB VANCOMYCIN IVPB < 1.5 GM [#[id number]] Priority: STAT Class: Normal Antibiotic Indications -> Pneumonia (HAP ) IPRATROPIUM-ALBUTEROL 2.5 MG-0.5 MG/* [#[id number]] Priority: STAT Class: Normal MODE OF DELIVERY -> Nebulizer BUDESONIDE 0.5 MG/2 ML NEB SUSPENSION [#[id number]] Priority: STA T Class: Normal MODE OF DELIVERY - > Nebulizer PANTOPRAZOLE 40 MG + NS 10 ML IV [# [id number]] Priority: STAT Class: Normal PPI INDICATION -> Symptomatic GERD ACETYLCYSTEIN E 10 % (100 MG/ML) SOLN [#[id number]] Priority: STAT Class: Normal MODE OF DELIVERY -> Nebulizer CINACALCET 30 MG TAB [#[id number]] Priority: STAT Class: Normal ALPRAZOLAM 0.5 MG TAB [#[id number]] Priority: STAT Class: Normal HEPARIN (PORCINE) 5,000 UNIT/ML IJ S* [#[id number]] Priority: STAT Class: Normal LAMOTRIGINE 25 MG TAB [# [id number]] Priority: STAT Class: Normal DEXTROSE 5%-1/2 NORMAL SALINE IV [#[id number]] Pr iority: STAT Class: Normal PIPERACILLIN-TAZOBACTAM 3.375 GRAM I* [#[id number]] Priority: STAT Class: Normal Antibiotic Indications -> Pneumonia (HAP) HAP duration of therapy -> 7 days PIPERACILLIN-TAZOBACTAM 3.375 GRAM I* [#[id number]] Priority: STAT Class: Normal Antibiotic Indication s -> Pneumonia (HAP) HAP duration of therapy -> 7 days ACETAMINOPHEN 325 MG TABLET [# [id number]] Priority: STAT Class: Normal VANCOMYCIN IVPB < 1.5 GM [#[id number]] Pr iority: STAT Class: Normal Antibiotic Indications -> Bloodstream Infection [id number] NON-INVASIVE POSITIV E PRESSURE VENTI* [#[id number]] Priority: STAT Class: Hospital Performed Standing Order Information Remaining Occurrences:0/1 Interval:Continuous Last released:04/19/2019 Released o rders: Karla Apr 19, 2019 9:51 AM by: NEETA COLEMAN Type -> Adult/Pediatric Indication for u se -> Acute Have the absolute and relative contraindications for NIPPV beenconsidered (hyperlink above)? -> Yes Mode -> Bi-Level JP4045 NON-INVASIVE POSITIVE PRESSURE VENTI* [#[id number]] Priority: STAT C lass: Hospital Performed Type -> Adult/Pediatric Indication for use -> Acute Have the absolute and relative contraindications for NIPPV beenconsidered (hyperlink above)? -> Yes Mode -> Bi-Level Released on: 04/19/2019 9:51 AM JJ5656 RT--BIPAP [#[id number]] Priority: Rout ine Class: Hospital Performed Standing Order Information Remaining Occurrences:0/1 Inter seema:CONTINUOUS Last released:04/19/2019 Released orders: Karla Apr 19, 2019 2:45 PM by: KRYSTIAN CASAS FIO2 -> 70% [id number] RT--BIPAP [#[id number]] Priority: Routine Class: Hospital Performed FIO2 -> 70% Released on: 04/19/2019 2:45 PM XXL550 IP CONSULT TO PRIMARY CARE PROVIDER [#[id number]] Priority: STAT Class: Hospital Performed Standing Order Information Remaining Occurrences:0/1 Interval:ONE TIME Last released:04/19/2019 Released orders : Karla Apr 19, 2019 11:28 AM by: NEETA COLEMAN Reason for Consult: -> admit patient Did y ou call or speak to the consulting provider? -> No Consult To -> Dr Hills Schedule When? -> TODAY WEV366 IP CONSULT TO PRIMARY CARE PROVIDER [#[id number]] Priority: STAT Class: Hospital Performe d Comment:aware Reason for Consult: -> admit patient Did you call or speak to the consulting prov ider? -> No Consult To -> Dr Hills Schedule When? -> TODAY Released on: 04/19/2019 11:28 AM CON5 IP CONSULT TO INFECTIOUS DISEASES [#[id number]] Priority: Routine Class: Hospital Performed St anding Order Information Remaining Occurrences:0/1 Interval:ONE TIME Last released:0 04/19/2019 Released orders: Karla Apr 19, 2019 1:33 PM by: MILI HILLS Reason for Cons ult: -> pneumonia / rule out sepsis Did you call or speak to the consulting provider? -> No Consult To -> Dr Dudley Schedule When? -> TODAY CON5 IP CONSULT TO INFECTIOUS DISEASES [#[id number]] Priority: Routine Class: Hospital Performed Comment:ID: Dr Dudley [facility] aware of routine consult Reason for Consult: -> pneumonia / rule out sepsis Did you call or speak to the consulting provider? -> No Consult To -> Dr Dudley Schedule When? -> TODAY Released on: 04/19/2019 1:33 PM [id number] INITIA L PHYSICIAN ORDER: INPATIENT [#[id number]] Priority: Routine Class: ADT Pend Transfer Standing Ord er Information Remaining Occurrences:0 Interval:ONE TIME Last released:04/19/2019 Released orders: Karla Apr 19, 2019 1:32 PM by: MILI HILLS Status: -> INPATIENT I npatient Hospitalization Certified [...] Extend ed Care Facility (e.g. Adult Home, Jail, etc.) [id number] INITIAL PHYSICIAN ORDER: INPATIENT [#[id number]] Priority: Routine Class: ADT Pend Transfer Status: [...] -> Extended Care Facility (e.g. Adult Home, Jail, etc.) Released on: 020 1:32 PM CON54 IP CONSULT TO PULMONOLOGY [#[id number]] Priority: Routine Class : Hospital Performed Standing Order Information Remaining Occurrences:0 Interval:ONE TI ME Last released:04/19/2019 Released orders: Karla Apr 19, 2019 1:33 PM by: PATRICIO HILLS Reason for Consult: -> Acute respiratory failure Did you call or speak to the consulting prov ider? -> Yes CON54 IP CONSULT TO PULMONOLOGY [#[id number]] Priority: Routine Class : Hospital Performed Reason for Consult: -> Acute respiratory failure Did you call or speak to th e consulting provider? -> Yes Released on: 04/19/2019 1:33 PM COD2 FULL CODE [#[id number]] Priority: STAT Class: Hospital Performed Standing Order Information Remainin g Occurrences:0/1 Interval:CONTINUOUS Last released:04/20/2019 Released orders : SatApr 20, 2019 8:37 AM by: RAYMOND SCHULZ COD2 FULL CODE [# [id number]] Priority: STAT Class: Hospital Performed Released on: 04/20/2019 8:37 AM PSL555 IP CON SULT TO WOUND CARE [#[id number]] Priority: STAT Class: Hospital Performed Standing Order Inf ormation Remaining Occurrences:0/1 Interval:ONE TIME Last released:04/20/2019 Release d orders: SatApr 20, 2019 1:09 PM by: SARAI EPSTEIN Reason for Consult: -> ? dressing to use GVP813 IP CONSULT TO WOUND CARE [#[id number]] Priority: STAT Class: Hospital Performe d Comment:Lucien is aware Reason for Consult: -> ? dressing to use Released on: 04/20/2019 1:09 PM [id number] LOZANO CATHETER, INSERTION [#[id number]] Priority: STAT Class: Hospital Performe d Standing Order Information Remaining Occurrences:0/1 Interval:ONE TIME Last released: 04/20/2019 Released orders: SatApr 20, 2019 2:31 PM by: MILI HILLS Reason for Inse rtion: -> Accurate measurement of urinary output Follow Nurse Driven Lozano Removal Protocol? -> Yes N [id number] LOZANO CATHETER, INSERTION [#[id number]] Priority: STAT Class: Hospital Performe d Reason for Insertion: -> Accurate measurement of urinary output Follow Nurse Driven Lozano Removal P rotocol? -> Yes Released on: 04/20/2019 2:31 Evelio Dickey MR#: [id number]* Rm: 344-01Ht: 5' 2" Wt: 103 lb Code: Full Code Iso:Diagnosis:Acute hypoxemic respirator y failure (HCC) [J96.01]Allergies: No Known Allergies -------- Current as of: 04/20/192106 GI=Given HE=Held IC= IV Completed NB=New Bag --albuterol-ipratropium (DUO-NEB) 2.5 MG-0.5 MG/3 ML #[id number] Admin Amount: 3 mL Ordered Dose: 3 mL Route: Nebulization Freq: NOW Start Date: 11/07/18 No administration times (back 96 hours, ahead 96 hours). ------methylPREDNISolone (PF) (Solu-MEDROL) injection 125 mg #[id number] Admin Amount: 2 mL = 125 mg of 125 mg/2 mL Ordered Dose: 125 mg Route: Int raVENous Freq: NOW Start Date: 11/07/18 No administration times (back 96 hours, ahe ad 96 hours). ------cefTRIAXone (ROCEPHIN) 1 g in 0.9% sodium chloride (MBP/ADV) 50 m L M*#[id number] Admin Amount: 1 g Ordered Dose: 1 g Route: IntraVENous Freq: NOW Start Date: 11/07/18 Rate: 100 mL/hr Duration: 30 Minutes No administration times (back 96 hours, ahead 96 hours). ------azithromycin (ZITHROMAX) 500 mg in NS 250 mL #[id number] Admin Amount: 250 mL = 500 mg of 500 mg/250 mL Ordered Dose: 500 mg Ro shoalwater: IntraVENous Freq: NOW Start Date: 11/07/18 Rate: 250 mL/hr Dura tion: 60 Minutes No administration times (back 96 hours, ahead 96 hours). ------iopamidol (ISOVUE-370) 76 % injection 100 mL #[id number] Admin Amount: 100 mL Ordered Dose: 100 mL Route: IntraVENous Freq: RAD ONC E Start Date: 11/07/18 No administration times (back 96 hours, ahead 96 hours). ------sodium chloride 0.9 % bolus infusion 500 mL #[id number] Admin Amount: 500 mL Ordered Dose: 500 mL Route: IntraVENous Freq: ONCE Start Date: 11/08/18 Rate: 666.7 mL/hr Duration: 45 Minutes No administr ation times (back 96 hours, ahead 96 hours). ------ALPRAZolam (XANAX) tablet 0.25 mg #[id number] Admin Amount: 1 Tab (1 x 0.25 mg Tab) Ordered Dose: 0.25 mg Route: Ora l Freq: DAILY Start Date: 11/08/18 No administration times (back 96 hours, ahe ad 96 hours).Evelio Carlin MR#: [id number] * Rm: 344-01Ht: 5' 2" Wt: 1 03 lb Code: Full Code Iso:Diagnosis:Acute hypoxemic respiratory failure (HCC) [J96.01]Allerg ies: No Known Allergies -------- Current as of: 04/20/192106 GI=Given HE=Held IC= IV Completed NB=New Bag --cefTRIAXone (ROCEPHIN) 1 g in 0.9% sodium chloride (MBP/ADV) 50 mL M*#[id number] Admin Amount: 1 g Ordered Dose: 1 g Route: IntraVENous Freq: EVERY 24 HOURS Start Date: 11/08/18 Rate: 100 mL/hr Duration: 30 Minutes No administration times (back 96 hours, ahead 96 hours). ------azithromycin (ZITHROMAX) 500 mg in 0.9% sodium chloride 250 mL IV PB #[id number] Admin Amount: 500 mg Ordered Dose: 500 mg Route: IntraVENous Freq: EVERY 24 HOURS Start Date: 11/08/18 Rate: 250 mL/hr Duration: 60 Minutes No administrati on times (back 96 hours, ahead 96 hours). ------LORazepam (ATIVAN) injection 0.5 mg #[id number] Admin Amount: 0.25 mL = 0.5 mg of 2 mg/mL Ordered Dose: 0.5 mg [place]: IntraVENous Freq: ONCE Start Date: 11/10/18 No administration times (back 96 hours, ahead 96 hours). ------LORazepam (ATIVAN) injection 2 mg #[id number] Admin Amount: 1 mL = 2 mg of 2 mg/mL Ordered Dose: 2 mg Route: Int raVENous Freq: ONCE Start Date: 11/11/18 No administration times (back 96 hours, ahe ad 96 hours). ------LORazepam (ATIVAN) injection 0.5 mg #[id number] Admin Amount: 0.25 mL = 0.5 mg of 2 mg/mL Ordered Dose: 0.5 mg [place]: IntraVENous Freq: ONCE Start Date: 11/11/18 No administration times (back 96 hours, ahead 96 hours). ------acetaminophen (OFIRMEV) infusion 1,000 mg #[id number] Admin Amount: 100 mL = 1,000 mg of 1,000 mg/100 mL Ordered Dose: 1,000 mg [place]: IntraVENous Freq: EVERY 6 HOURS Start Date: 11/17/18 Rate: 400 mL/hr Durat ion: 15 Minutes No administration times (back 96 hours, ahead 96 hours). ------HYDROmorphone (DILAUDID) syringe 0.5 mg #[id number] Admin Amount: 0.5 mL = 0.5 mg of 0.5 mg/0.5 mL Ordered Dose: 0.5 mg [place]: IntraVENous Freq: EVERY 6 HOURS NEEDED Start Date: 11/17/18 No administration times (back 96 hours, ahead 96 hours).Evelio Carlin MR#: [id number] * Rm: 344-01Ht: 5' 2" Wt: 103 lb Code: Full Code Iso:Diagnosis:Acute hypoxemic respiratory failure (HCC) [J96.]Allerg ies: No Known Allergies -------- Current as of: 04/20/192106 GI=Given HE=Held IC= IV Completed NB=New Bag --acetaminophen (OFIRMEV) infusion 1,000 mg #[id number] Admin Amount: 100 mL = 1,000 mg of 1,000 mg/100 mL Ordered Dose: 1,000 mg [place]: IntraVENous Freq: EVERY 6 HOURS Start Date: 11/18/18 Rate: 400 mL/hr Durat ion: 15 Minutes No administration times (back 96 hours, ahead 96 hours). ------piperacillin-tazobactam (ZOSYN) 3.375 g in 0.9% sodium chloride (MBP*#[id number] Admin Amount: 3.375 g Ordered Dose: 3.375 g Route: IntraVENous Freq: EVERY 8 HOURS Start Date: 11/18/18 Rate: 25 mL/hr Duration: 240 Minutes No administra tion times (back 96 hours, ahead 96 hours). ------potassium chloride 10 mEq in 100 ml IVPB #[id number] Admin Amount: 100 mL = 10 mEq of 10 mEq/100 mL Ordered Dose: 10 mEq [place]: IntraVENous Freq: EVERY 1 HOUR Start Date: 11/19/18 Rate: 100 mL/hr Durat ion: 60 Minutes No administration times (back 96 hours, ahead 96 hours). ------diatrizoate tiffani-diatrizoat sod (RUHTYGASTROVIEW,GASTRO GRAFIN) 66-10 % *#[id number] Admin Amount: 30 mL Ordered Dose: 30 mL Route: Oral Freq: RAD ONCE Start Date: 11/19/18 No administration times (back 96 hours, ahead 96 hours). ------acetaminophen (OFIRMEV) infusion 1,000 mg #[id number] Admin Amount: 100 mL = 1,000 mg of 1,000 mg/100 mL Ordered Dose: 1,000 mg [place]: IntraVENous Freq: EVERY 6 HOURS Start Date: 11/21/18 Rate: 400 mL/hr Durat ion: 15 Minutes No administration times (back 96 hours, ahead 96 hours). ------acetaminophen (OFIRMEV) infusion 1,000 mg #[id number] Admin Amount: 100 mL = 1,000 mg of 1,000 mg/100 mL Ordered Dose: 1,000 mg [place]: IntraVENous Freq: EVERY 6 HOURS Start Date: 11/22/18 Rate: 400 mL/hr Dura tion: 15 Minutes No administration times (back 96 hours, ahead 96 hours). ------LORazepam (ATIVAN) tablet 0.5 mg #[id number] Admin Amount: 1 Tab (1 x 0.5 mg Tab) Ordered Dose: 0.5 mg Route: Per G Tube Freq: EVERY BEDTIME Start Date: 11/23/18 No administration times (back 96 hours, ahe ad 96 hours).Evelio Carlin MR#: [id number] * Rm: 344-01Ht: 5' 2" Wt: 1 03 lb Code: Full Code Iso:Diagnosis:Acute hypoxemic respiratory failure (HCC) [J96.01]Allerg ies: No Known Allergies -------- Current as of: 04/20/192106 GI=Given HE=Held IC= IV Completed NB=New Bag --vancomycin (VANCOCIN) 1,250 mg in 0.9% sodium chloride 250 mL IVPB #[id number] Admin Amount: 1,250 mg Ordered Dose: 1,250 mg Route: IntraVENous Freq: EVERY 12 H OURS Start Date: 11/24/18 Rate: 125 mL/hr Duration: 120 Minutes No administrati on times (back 96 hours, ahead 96 hours). ------potassium chloride (KLOR-CON) packet for solution 20 mEq #[id number] Admin Amount: 1 Packet (1 x 20 mEq Packet) Ordered Dose: 20 mEq [place]: Oral Freq: 2 TIMES DAILY WITH MEALS Start Date: 11/25/18 No administration times (back 96 hours, ahe ad 96 hours). ------piperacillin-tazobactam (ZOSYN) 3.375 g in 0.9% sodium chloride (MBP*#[id number] Admin Amount: 3.375 g Ordered Dose: 3.375 g Route: IntraVENous Freq: NOW Start Date: 12/12/18 Rate: 200 mL/hr Duration: 30 Minutes No administra tion times (back 96 hours, ahead 96 hours). ------albuterol-ipratropium (DUO-NEB) 2.5 MG-0.5 MG/3 ML #[id number] Admin Amount: 3 mL Ordered Dose: 3 mL Route: Nebulization Freq: NOW Start Date: 12/12/18 No administration times (back 96 hours, ahead 96 hours). ------methylPREDNISolone (PF) (Solu-MEDROL) injection 125 mg #[id number] Admin Amount: 2 mL = 125 mg of 125 mg/2 mL Ordered Dose: 125 mg Route: Int raVENous Freq: NOW Start Date: 12/12/18 No administration times (back 96 hours, ahe ad 96 hours). ------albuterol-ipratropium (DUO-NEB) 2.5 MG-0.5 MG/3 ML #[id number] Admin Amount: 3 mL Ordered Dose: 3 mL Route: Nebulization Freq: NOW Start Date: 12/12/18 No administration times (back 96 hours, ahead 96 hours). ------albuterol-ipratropium (DUO-NEB) 2.5 MG-0.5 MG/3 ML #[id number] Admin Amount: 3 mL Ordered Dose: 3 mL Route: Nebulization Freq: NOW Start Date: 12/12/18 No administration times (back 96 hours, ahead 96 hours).Ivelisse Carlin MR#: [id number] * Rm: 344-01Ht: 5' 2" Wt: 103 lb Code: Full Code Iso:Diagnosis:Acute hypoxemic respiratory failure (HCC) [J96.01]Allergies: No Known Allergies -------- Current as of: 04/20/192106 GI=Given HE=Held IC= IV Completed NB=New Bag -- Followed by [facility] (Order count: 2)sodium chloride 0.9 % jeff aspen infusion 1,000 mL #[id number] Admin Amount: 1,000 mL Ordered Dose: 1,000 [...] chloride 0.9 % bolus infusion 593 mL #[id number] Admin Amount: 593 mL Ordere d Dose: 593 mL Route: IntraVENous Freq: ONCE Start Date: 12/12/18 No ad ministration times (back 96 hours, ahead 96 hours). ------iopamidol (ISOVUE-370) 76 % injection 125 mL #[id number] Admin Amount: 125 mL Ordered Dose: 125 mL Route: IntraVENous Freq: RAD ONC E Start Date: 12/17/18 No administration times (back 96 hours, ahead 96 hours). ------lidocaine (XYLOCAINE) 20 mg/mL (2 %) injection 100 mg #[id number] Admin Amount: 5 mL = 100 mg of 2,000 mg/100 mL Ordered Dose: 5 mL [place]: IntraDERMal Freq: ONCE Start Date: 12/19/18 No administration times (back 96 hours, ahead 96 hours). ------oxyCODONE-acetaminophen (PERCOCET) 5-325 mg per tablet 1 Tab #[id number] Admin Amount: 1 Tab Ordered Dose: 1 Tab Route: Oral Freq: EVERY 8 HOURS NEEDED Start Date: 12/19/18 No administration times (back 96 hours, ahead 96 hours). ------furosemide (LASIX) injection 20 mg #[id number] Admin Amount: 2 mL = 20 mg of 10 mg/mL Ordered Dose: 20 mg [place]: IntraVENous Freq: ONCE Start Date: 12/26/18 No administration times (back 96 hours, ahead 96 hours). ------furosemide (LASIX) injection 20 mg #[id number] Admin Amount: 2 mL = 20 mg of 10 mg/mL Ordered Dose: 20 mg Route: Int raVENous Freq: ONCE Start Date: 12/29/18 No administration times (back 96 hours, [facility] ad 96 hours).Evelio Carlin MR#: [id number] * Rm: 344-01Ht: 5' 2" Wt: 1 03 lb Code: Full Code Iso:Diagnosis:Acute hypoxemic respiratory failure (HCC) [J96.01]Allerg ies: No Known Allergies -------- Current as of: 04/20/192106 GI=Given HE=Held IC= IV Completed NB=New Bag --albuterol-ipratropium (DUO-NEB) 2.5 MG-0.5 MG/3 ML #[id number] Admin Amount: 3 mL Ordered Dose: 3 mL Route: Nebulization Freq: NOW Start Date: 01/10/19 No administration times (back 96 hours, ahead 96 hours). ------methylPREDNISolone (PF) (Solu-MEDROL) injection 125 mg #[id number] Admin Amount: 2 mL = 125 mg of 125 mg/2 mL Ordered Dose: 125 mg Route: Int raVENous Freq: NOW Start Date: 01/10/19 No administration times (back 96 hours, [facility] ad 96 hours). ------albuterol-ipratropium (DUO-NEB) 2.5 MG-0.5 MG/3 ML #[id number] Admin Amount: 3 mL Ordered Dose: 3 mL Route: Nebulization Freq: NOW Start Date: 01/10/19 No administration times (back 96 hours, ahead 96 hours). ------acetaminophen (TYLENOL) tablet 650 mg #[id number] Admin Amount: 2 Tab (2 x 325 mg Tab) Ordered Dose: 650 mg Route: Per G Tub e Freq: NOW Start Date: 01/10/19 No administration times (back 96 hours, e ad 96 hours). ------piperacillin-tazobactam (ZOSYN) injection 3.375 g #[id number] Admin Amount: 3.375 g Ordered Dose: 3.375 g Route: IntraVENous Freq: NOW Start Date: 01/10/19 No administration times (back 96 hours, ahead 96 hours). ------vancomycin (VANCOCIN) 1,000 mg in 0.9% sodium chloride 250 mL IVPB #[id number] Admin Amount: 1,000 mg Ordered Dose: 1,000 mg Route: IntraVENous Freq: ONCE Start Date: 01/10/19 Rate: 125 mL/hr Duration: 120 Minutes No admini stration times (back 96 hours, ahead 96 hours). ------ Followed by [facility] (Order count: 2)sodium chloride 0. 9 % bolus infusion 1,000 mL #[id number] Admin Amount: 1,000 mL Ordered Dose: 1,000 mL Route: IntraVENous Freq: ONCE Start Date: 01/10/19 No administration t imes (back 96 hours, ahead 96 hours).Evelio Carlin MR#: [id number] * Rm: 34 07-14Ht: 5' 2" Wt: [...] chloride 0.9 % bolus infusion 551 mL #[id number] Admin Amount: 551 mL Ordere d Dose: 551 mL Route: IntraVENous Freq: ONCE Start Date: 01/10/19 No ad ministration times (back 96 hours, ahead 96 hours). ------0.9% sodium chloride (MBP/ADV) infusion #[id number] Ordered Dose: Route: Freq: Start D ate: 01/10/19 No administration times (back 96 hours, ahead 96 hours). ------influenza vaccine (65 yrs+)(PF) (FLUZONE HIGH-DOSE ) injectio*#[id number] Admin Amount: 0.5 mL Ordered Dose: 0.5 mL Route: IntraMUSCular Freq: PRIOR TO DISCHARGE Start Date: 01/10/19 No administration times (back 96 hours, ahead 96 hours). ------piperacillin-tazobactam (ZOSYN) 3.375 g in 0.9% sodium chloride (MBP*#[id number] Admin Amount: 3.375 g Ordered Dose: 3.375 g Route: IntraVENous Freq: EVERY 8 HOURS Start Date: 01/10/19 Rate: 25 mL/hr Duration: 240 Minutes No administr ation times (back 96 hours, ahead 96 hours). ------potassium, sodium phosphates (NEUTRA-PHOS) packet 1 Packet #[id number] Admin Amount: 1 Packet Ordered Dose: 1 Packet Route: Per G Tube Freq: 4 TIMES DAILY Start Date: 01/12/19 No administration times (back 96 hours, ahead 96 hours). ------iopamidol (ISOVUE 300) 61 % contrast injection 100 mL #[id number] Admin Amount: 100 mL Ordered Dose: 100 mL Route: IntraVENous Freq: RAD ONC E Start Date: 01/15/19 No administration times (back 96 hours, ahead 96 hours). ------sodium phosphate 15 mmol in 0.9% sodium chloride 250 mL infusion #[id number] Ordered Dose: Route: IntraVENous Freq: ONCE Start Date: 01/20/19 Rate: 63.8 mL/hr Duration: 4 Hours No administration patria es (back 96 hours, ahead 96 hours).Evelio Carlin MR#: [id number] * Rm: 34 07-14Ht: 5' 2" Wt: 103 lb Code: Full Code Iso:Diagnosis:Acute hypoxemic respirator y failure ([facility]) [J96.01]Allergies: No Known Allergies -------- Current as of: 04/20/192106 GI=Given HE=Held IC= IV Completed NB=New Bag --acetaZOLAMIDE SR (DIAMOX) capsule 500 mg #[id number] Admin Amount: 1 Cap (1 x 500 mg Cap) Ordered Dose: 500 mg Route: Oral Freq: O NCE Start Date: 01/23/19 No administration times (back 96 hours, ahead 96 hours). ------albuterol (PROVENTIL VENTOLIN) nebulizer solution 2.5 mg #[id number] Admin Amount: 3 mL = 2.5 mg of 2.5 mg/3 mL Ordered Dose: 2.5 mg [place]: Nebulization Freq: NOW Start Date: 02/08/19 No administration times (back 96 hours, ahead 96 hours). ------albuterol (PROVENTIL VENTOLIN) nebulizer solution 2.5 mg #[id number] Admin Amount: 3 mL = 2.5 mg of 2.5 mg/3 mL Ordered Dose: 2.5 mg [place]: Nebulization Freq: NOW Start Date: 02/08/19 No administration times (back 96 hours, ahead 96 hours). ------ Followed by [facility] (Order count: 2)sodium chloride 0. 9 % bolus infusion 1,000 mL #[id number] Admin Amount: 1,000 mL Ordered Dose: 1,000 [...] chloride 0.9 % bolus infusion 701 mL #[id number] Admin Amount: 701 mL O rdered Dose: 701 mL Route: IntraVENous Freq: ONCE Start Date: 02/08/19 No administration times (back 96 hours, ahead 96 hours). ------cefepime (MAXIPIME) 2 g in 0.9% sodium chloride (MBP/ADV) 100 mL MBP #[id number] Admin Amount: 2 g Ordered Dose: 2 g Route: IntraVENous Freq: NOW Start Date: 02/08/19 Rate: 200 mL/hr Duration: 30 Minutes No administratio n times (back 96 hours, ahead 96 hours). ------vancomycin (VANCOCIN) 1,000 mg in 0.9% sodium chloride 250 mL IVPB #[id number] Admin Amount: 1,000 mg Ordered Dose: 1,000 mg Route: IntraVENous Freq: ONCE Start Date: 02/08/19 Rate: 125 mL/hr Duration: 120 Minutes No admin istration times (back 96 hours, ahead 96 hours).Evelio Carlin MR#: [id number]* Rm: 344-01Ht: 5' 2" Wt: 103 lb Code: Full Code Iso:Diagnosis:Acute hypoxemic respirator y failure (HCC) [J96.01]Allergies: No Known Allergies -------- Current as of: 04/20/192106 GI=Given HE=Held IC= IV Completed NB=New Bag --ALPRAZolam (XANAX) tablet 0.25 mg #[id number] Admin Amount: 1 Tab (1 x 0.25 mg Tab) Ordered Dose: 0.25 mg Route: Per G Tub e Freq: 4 TIMES DAILY NEEDED Start Date: 02/08/19 No administration times (back 96 hours, ahe ad 96 hours). ------cefepime (MAXIPIME) 2 g in 0.9% sodium chloride (MBP/ADV) 100 mL MBP #[id number] Admin Amount: 2 g Ordered Dose: 2 g Route: IntraVENous Freq: EVERY 8 TAMMY RS Start Date: 02/09/19 Rate: 200 mL/hr Duration: 30 Minutes No administratio n times (back 96 hours, ahead 96 hours). ------ALPRAZolam (XANAX) tablet 0.25 mg #[id number] Admin Amount: 1 Tab (1 x 0.25 mg Tab) Ordered Dose: 0.25 mg Route: Per G Tube Freq: 4 TIMES DAILY NEEDED Start Date: 02/14/19 No administration times (back 96 hours, ahe ad 96 hours). ------propofol (DIPRIVAN) 10 mg/mL injection #[id number] Ordered Dose: Route: Freq: Start Date: No administration times (back 96 hours, ahead 96 hours). ------midazolam (PF) (VERSED) 1 mg/mL injection #[id number] Ordered Dose: Route: Freq: Start Date: 02/16/19 No administration times (back 96 hours, ahead 96 hours). ------albuterol (PROVENTIL VENTOLIN) 2.5 mg /3 mL (0.083 %) nebuliz er river*#[id number] Ordered Dose: Route: Freq: Start D ate: 02/16/19 No administration times (back 96 hours, ahead 96 hours). ------albuterol (PROVENTIL VENTOLIN) nebulizer solution 2.5 mg #[id number] Admin Amount: 3 mL = 2.5 mg of 2.5 mg/3 mL Ordered Dose: 2.5 mg [place]: Inhalation Freq: NEEDED Start Date: 02/16/19 No administration times (back 96 hours, ahead 96 hours). ------ePHEDrine (MISTOLE) 50 mg/mL injection #[id number] Ordered Dose: Route: Freq: Start Date: No administration times (back 96 hours, ahead 96 hours).Evelio Carlin MR#: [id number] * Rm: 344-01Ht: 5' 2" Wt: 103 lb Code: Full Code Iso:Diagnosis:A cute hypoxemic respiratory failure (HCC) [J96.01]Allergies: No Known Allergies -------- Current as of: 04/20/192106 GI=Given HE=Held IC= IV Completed NB=New Bag --propofol (DIPRIVAN) 10 mg/mL injection #[id number] Ordered Dose: Route: Freq: Start Date: 02/17/19 No administration times (back 96 hours, ahead 96 hours). ------fentaNYL citrate (PF) 50 mcg/mL injection #[id number] Ordered Dose: Route: Freq: Start Date: 02/17 No administration times (back 96 hours, ahead 96 hours). ------midazolam (PF) (VERSED) 1 mg/mL injection #[id number] Ordered Dose: Route: Freq: Start Date: 02/17/19 No administration times (back 96 hours, ahead 96 hours). ------acetaminophen (TYLENOL) tablet 975 mg #[id number] Admin Amount: 3 Tab (3 x 325 mg Tab) Ordered Dose: 975 mg Route: Oral Dg q: NOW Start Date: 03/11/19 No administration times (back 96 hours, ahead 96 hours). ------vancomycin (VANCOCIN) 1,000 mg in 0.9% sodium chloride 250 mL IVPB #[id number] Admin Amount: 1,000 mg Ordered Dose: 1,000 mg Route: IntraVENous Freq: ONCE Start Date: 03/11/19 Rate: 125 mL/hr Duration: 120 Minutes No admin istration times (back 96 hours, ahead 96 hours). ------sodium chloride 0.9 % bolus infusion 1,000 mL #[id number] Admin Amount: 1,000 mL Ordered Dose: 1,000 mL Route: IntraVENous Freq: ONCE Start Date: 03/25/19 Rate: 1,000 mL/hr Duration: 60 Minutes No admini stration times (back 96 hours, ahead 96 hours). ------sodium chloride 0.9 % bolus infusion 1,000 mL #[id number] Admin Amount: 1,000 mL Ordered Dose: 1,000 mL Route: IntraVENous Freq: ONCE Start Date: 03/25/19 Rate: 1,000 mL/hr Duration: 60 Minutes No admini stration times (back 96 hours, ahead 96 hours). ------cefepime (MAXIPIME) 1 g in 0.9% sodium chloride (MBP/ADV) 50 mL MBP #[id number] Admin Amount: 1 g Ordered Dose: 1 g Route: IntraVENous Freq: ONCE Start Date: 03/25/19 Rate: 100 mL/hr Duration: 30 Minutes No administratio n times (back 96 hours, ahead 96 hours).Evelio Carlin MR#: [id number] * Rm: 344-01Ht: 5' 2" Wt: 103 lb Code: Full Code Iso:Diagnosis:Acute hypoxemic respirator y failure ([facility]) [J96.01]Allergies: No Known Allergies -------- Current as of: 04/20/192106 GI=Given HE=Held IC= IV Completed NB=New Bag --vancomycin (VANCOCIN) 1,000 mg in 0.9% sodium chloride 250 mL IVPB #[id number] Admin Amount: 1,000 mg Ordered Dose: 1,000 mg Route: IntraVENous Freq: ONCE Start Date: 03/25/19 Rate: 125 mL/hr Duration: 120 Minutes No administrat ion times (back 96 hours, ahead 96 hours). ------cefepime (MAXIPIME) 1 g in 0.9% sodium chloride (MBP/ADV) 50 mL [facility] #[id number] Admin Amount: 1 g Ordered Dose: 1 g Route: IntraVENous Freq: EVERY 8 TAMMY RS Start Date: 03/25/19 Rate: 100 mL/hr Duration: 30 Minutes No administratio n times (back 96 hours, ahead 96 hours). ------vancomycin (VANCOCIN) 1,000 mg in 0.9% sodium chloride 250 mL IVPB #[id number] Admin Amount: 1,000 mg Ordered Dose: 1,000 mg Route: IntraVENous Freq: EVER Y 12 HOURS Start Date: 03/25/19 Rate: 125 mL/hr Duration: 120 Minutes No admin istration times (back 96 hours, ahead 96 hours). ------potassium, sodium phosphates (NEUTRA-PHOS) packet 2 Packet #[id number] Admin Amount: 2 Packet Ordered Dose: 2 Packet Route: Per G Tube Freq: 2 TIMES DAILY Start Date: 03/27/19 No administration times (back 96 hours, ahead 96 hours). ------propofol (DIPRIVAN) 10 mg/mL injection #[id number] Ordered Dose: Route: Freq: Start Date: No administration times (back 96 hours, ahead 96 hours). ------diatrizoate tiffani-diatrizoat sod (RUTHYGASTROVIEW,GASTRO GRAFIN) 66-10 % *#[id number] Admin Amount: 30 mL Ordered Dose: 30 mL Route: Oral Freq: RAD ONCE Start Date: 04/04/19 No administration times (back 96 hours, ahead 96 hours). ------fentaNYL citrate (PF) 50 mcg/mL injection #[id number] Ordered Dose: Route: Freq: Start Date: No administration times (back 96 hours, ahead 96 hours).Eevlio Carlin MR#: [id number] ct#: [id number]* Rm: 344-01Ht: 5' 2" Wt: 103 lb Code: Full Code Iso:Diagnosis:Acute hypox emic respiratory failure (HCC) [J96.01]Allergies: No Known Allergies -------- Current as of: 04/20/192106 GI=Given HE=Held IC= IV Completed NB=New Bag --sodium chloride (NS) flush 5-10 mL #[id number] Admin Amount: 5-10 mL Ordered Dose: 5-10 mL Route: IntraVENous Freq: NEEDED Start Date: 04/19/19 No administration times (back 96 hours, ahead 96 hours). ------acetaminophen (TYLENOL) suppository 650 mg #[id number] Admin Amount: 1 Suppository (1 x 650 mg Suppository) Ordered Dose: 650 mg Ro [place]: Rectal Freq: NOW Start Date: 04/19/19 Administration times (back 96 hours, ahe ad 96 hours): 04/19/19: 0952HE -----piperacillin-tazobactam (ZOSYN) 3.375 g in 0.9% sodium chloride ([facility]*#[id number] Admin Amount: 3.375 g Ordered Dose: 3.375 g Route: IntraVENous Freq: NOW Start Date: 04/19/19 Rate: 200 mL/hr Duration: 30 Minutes Administration times (back 96 hours, ahead 96 hours): 04/19/19: 1051NB 1300IC -----sodium chloride 0.9 % bolus infusion 1,000 mL #[id number] Admin Amount: 1,000 mL Ordered Dose: 1,000 mL Route: IntraVENous Freq: ONCE Start Date: 04/19/19 Rate: 1,000 mL/hr Duration: 60 Minutes Administrat ion times (back 96 hours, ahead 96 hours): 04/19/19: 1031NB 1300IC -----methylPREDNISolone (PF) (Solu-MEDROL) injection 125 mg #[id number] Admin Amount: 2 mL = 125 mg of 125 mg/2 mL Ordered Dose: 125 mg Route: Int raVENous Freq: NOW Start Date: 04/19/19 Administration times (back 96 hours, ahe ad 96 hours): 04/19/19: 1307GI -----albuterol-ipratropium (DUO-NEB) 2.5 MG-0.5 MG/3 ML #[id number] Admin Amount: 3 mL Ordered Dose: 3 mL Route: Nebulization Freq: NOW Start Date: 04/19/19 Administration times (back 96 hours, ahead 96 hours): 04/19/19: 1307G Evelio Earl MR#: [id number] * Rm: 344-01Ht: 5' 2" Wt: 103 lb Code: Full Code Iso:Diagnosis:Acute hypoxemic respiratory failure (HCC) [J96.01]Allergies: No Know n Allergies -------- Current as of: 04/20/192106 GI=Given HE=Held IC= IV Completed NB=New Bag --vancomycin (VANCOCIN) 1,000 mg in 0.9% sodium chloride 250 mL IVPB #[id number] Admin Amount: 1,000 mg Ordered Dose: 1,000 mg Route: IntraVENous Freq: NOW Start Date: 04/19/19 Rate: 125 mL/hr Duration: 120 Minutes Administration t imes (back 96 hours, ahead 96 hours): 04/19/19: 1307NB 1828IC -----albuterol-ipratropium (DUO-NEB) 2.5 MG-0.5 MG/3 ML #[id number] Admin Amount: 3 mL Ordered Dose: 3 [...] ---budesonide (PULMICORT) 500 mcg/2 ml nebulizer suspension #[id number] Admin Amount: 2 mL = 500 mcg of 500 mcg/2 mL Ordered Dose: 500 mcg Route: Neb ulization Freq: 2 TIMES DAILY RESP Start Date: 04/19/19 Administration times (back 96 hours, ahe ad 96 hours): 04/19/19: 2013GI 04/20/19: 1016GI 199904/21/19: 08199904/22/19: 799: 08199904/24/19: 081999 ---pantoprazole (PROTONIX) 40 mg in 0.9% sodium chloride 10 mL injecti on#[id number] Admin Amount: 10 mL = 40 mg of 40 mg/10 mL Ordered Dose: 40 mg Route: Int raVENous Freq: DAILY Start Date: 04/20/19 Administration times (back 96 hours, ahe ad 96 hours): 04/20/19: 1015GI 04/21/19: 89904/22/19: 89904/23/19: 89904/24/19: 899Evelio Carlin MR#: [id number] * Rm: 344-01Ht: 5' 2" Wt: 103 lb Code: Full Co de Iso:Diagnosis:Acute hypoxemic respiratory failure (HCC) [J96.01]Allergies: No Known Allergies -------- Current as of: 04/20/192106 GI=Given HE=Held IC= IV Completed NB=New Bag --acetylcysteine (MUCOMYST) 100 mg/mL (10 %) nebulizer solution 400 mg #[id number] Admin Amount: 4 mL = 400 mg of 100 mg/mL Ordered Dose: 4 mL Route: Inhalatio n Freq: 2 TIMES DAILY Start Date: 04/19/19 Administration times (back 96 hours, ahead 96 hours): 04/19/19: 04/20/19: 89904/21/19: 89904/22/19: 89904/23/19: 899 1800 04/24/19: 899 1799 ---cinacalcet (SENSIPAR) tablet 60 mg #[id number] Admin Amount: 2 Tab (2 x 30 mg Tab) Ordered Dose: 60 mg Route: Oral Dg q: DAILY Start Date: 04/20/19 Administration times (back 96 hours, ahead 96 hours): : 1937GI 04/21/19: 89904/22/19: 89904/23/19: 89904/24/19: 899 ---ALPRAZolam (XANAX) tablet 0.5 mg #[id number] Admin Amount: 1 Tab (1 x 0.5 mg Tab) Ordered Dose: 0.5 mg Route: Per G Tube F req: EVERY BEDTIME Start Date: 04/19/19 Administration times (back 96 hours, ahead 96 hours): 04/19/19: 2246GI 04/20/19: 219904/21/19: 219904/22/19: 219904/23/19: 2199 ---heparin (porcine) injection 5,000 Units #[id number] Admin Amount: 1 mL = 5,000 Units of 5,000 Units/mL Ordered Dose: 5,000 Units Route: SubCUTAneous Freq: EVERY 12 HOURS Start Date: 04/19/19 Administration times (back 96 hours, ahead 96 hours): 04/19/19: 17404/20/19: 0614GI 174604/21/19: 0547 174604/22/19: 0547 174604/23/19: 0547 1747 04/24/19: 0547 1747Evelio Carlin MR#: [id number] ct#: [id number]* Rm: 344-01Ht: 5' 2" Wt: 103 lb Code: Full Code Iso:Diagnosis:Acute hypoxemic respiratory failure (HCC) [J96.01]Allergies: No Known Allergies -------- Current as of: 04/20/192106 GI=Given HE=Held IC= IV Completed NB=New Bag --lamoTRIgine (LaMICtal) tablet 50 mg #[id number] Admin Amount: 2 Tab (2 x 25 mg Tab) Ordered Dose: 50 mg Route: Per G Tub e Freq: EVERY 12 HOURS Start Date: 04/19/19 Administration times (back 96 hours, ahead 96 hours): 04/19/19: 04/20/19: 1937209904/21/19: 89904/22/19: 89904/23/19: 89904/24/19: 899 2099 ---dextrose 5 % - 0.45% NaCl infusion #[id number] Ordered Dose: 70 mL/hr Route: IntraVENous Freq: CONTINUOUS Start Date: 04/19/19 Rate: 70 mL/hr Duration: Administration times ([facility] hours[facility] 04/19/19: 2113NB 04/20/19: 1938NB -----piperacillin-tazobactam (ZOSYN) 3.375 g in 0.9% sodium chloride (MBP*#[id number] Admin Amount: 3.375 g Ordered Dose: 3.375 g Route: IntraVENous Freq: EVERY 8 HOURS Start Date: 04/19/19 Rate: 25 mL/hr Duration: 240 Minutes Administratio n times (back 96 hours, ahead 96 hours): 04/19/19: 21204/20/19: 0408NB 1329NB 199904/21/19: 0400 1200 199904/22/19: 0400 1200 199904/23/19: 0400 1200 199904/24/19: 0400 1200 1999 ---acetaminophen (TYLENOL) tablet 650 mg #[id number] Admin Amount: 2 Tab (2 x 325 mg Tab) Ordered Dose: 650 mg Route: Oral Dg q: EVERY 4 HOURS NEEDED Start Date: 04/20/19 No administration times (back 96 hours, ahead 96 hours).Guillermo cruztammyEvelio MR#: [id number] * Rm: [phone]: 5' 2" Wt: 103 lb Cod e: Full Code Iso:Diagnosis:Acute hypoxemic respiratory failure (HCC) [J96.01]Allergies: No Known Allergies -------- Current as of: 04/20/192106 GI=Given HE=Held IC= IV Completed NB=New Bag --vancomycin (VANCOCIN) 1,000 mg in 0.9% sodium chloride 250 mL IVPB #[id number] Admin Amount: 1,000 mg Ordered Dose: 1,000 [...] Prescripti ons None on FileFollow-up InformationFollow-up With:Cesar Hilsl DODetails:Comments:Contact Info:[address] [phone] Name Value Range Interpretation Code Description Data [facility] rce(s) Supporting Document(s ) ID Date Data Source [id number] 04/20/2019 07:41:20 PM [facility] TRANSFER - OUT REPORT:Verbal report give [...] intact 04/19/2019 10:31 AMHub Color /Line Status [place] 04/19/2019 10:31 AMOpportunity for questions and clarific ation was provided.Patient transported with: MonitorRegistered NurseTech Name Value Range Interpretation Code Description [facility] Document(s ) ID Date Data Source [id number] 04/20/2019 07:37:35 PM [facility] Bedside and Verbal shift change report given to NANCY Bravo (oncoming nurse) byRob Ledezma RN (offgoing nurse ). Report included the following information SBAR, Kardex, EDSummary, Intake/Output, Med Rec Status, Cardiac Rhythm NSR and Quality Measures. Name Value Range Interpretation Code Description Data [facility](s) Supporting Document(s ) ID Date Data Source [id number] 04/26/2019 08:18:47 AM [facility] Name Value Range Interpretation Description Data Sup porting Code Source(s) Document(s ) Service comment [facility] Bacteria [facility] - Good identified in [facility] specimen by Culture ID Date Data Source [id number] 04/26/2019 08:18:46 AM [facility] Name Value Range Interpretation Description Data Sup porting Code Source(s) Document(s ) Service comment [facility] Bacteria [facility] - Good identified in [facility] specimen by Culture ID Date Data Source [id number] 04/20/2019 02:29:20 PM [facility] Patient attempting to pull off Bipap mas k. Bipap taken off and patient placedon 3l n/c. Spo2 96%, HR 71. No signs of sob at this time. Will continue tomonitor respiratory status. Name Value Range Interpretation Code Description Data Harriett rce(s) Supporting Document(s ) ID Date Data Source [id number] 04/20/2019 02:17:51 PM [facility] Progress NotePatient: Evelio Carlin Sex: male DOA: 04/19/2019Date of : 1950 A ge: 68 y.o. :[id number]:Reyes Carlin is 68 y.o. male on BIPAP, briefly opening his eyes, more awakethan yesterd ay.Positive blood cultures with GPC in clusters Anaerobic bottleHe has picc rig ht upper armRN reporting 500 cc in bladder with straight cath this morning.Bladder scan showing 200+ cc urine in bladderThe patient is nonverbal and unable to provi de a history.He was transferred from [facility] for heavy breathing, fever, and O2 SAT [...] 134* 86HCO3 30* 36*FIO2 65.0 70.0CULTURE, BLOOD [[id number]] (Order [id number])Microbi ologyDate: 04/19/2019 Department: [facility] Emergency Dept Released By/Authorizing: Joy Coleman, DIMMER BOARD OPERATOR (auto-released)Specimen Information: Blood Component Value Flag Ref Range Uni ts StatusSpecial Requests: PreliminaryNO SPECIAL REQUESTSGRAM STAIN Prelimin aryGRAM POSITIVE COCCI IN CLUSTERS ANAEROBIC BOTTLEGRAM STAIN PreliminaryCALLED TO AND READ BACK BY ROB LEDEZMARN, ED, [id number] ON 04/20/19 TORISMIRAGLIACulture result: PreliminaryXr Abd (kub)Result [...] sheath in situ. Through the sheatha 5 Emirati double-lumen 20 cm midl ine catheter was placed. The peel-away sheathwas removed. The catheter was sewn into position using 2-0 silk sutures. Thepatient tolerated the procedure. Ther e were no complications at the time of theprocedure. FINDINGS: Ultrasound inter rogation revealed a widely patent brachialvein above the antecubital fossa . A 5 Emirati dual-lumen 20 cm midline catheterwas placed. The tip was placed i n good position over the right axillary vein.IMPRESSION: 5 Emirati dual-lumen mid line catheter placed with tip [...] (MBP/ADV) 100mL MBP 3.3 75 g IntraVENous [id number] Outpatient MedicationsMedication Sig lamoTRIgine ( LAMICTAL) 25 [...] Supporting Document(s ) ID Date Data Source [id number] 04/20/2019 02:12:36 PM [facility] ID Progress Note04/20/2019Subjective:.Siri ent with recurrent aspiration pneumonia,COPD,dysphagia,s/p pegplacemen t,acute respiratory failure was brought by EMS from the intermediate forfever of 10 2.6,lethargy,respiratory distress and tachycardia.He was afebrile onarrival to the ER with hypotension.Patient is on BiPAP lethargic unable toprovide history.Histo ry obtained from chart review.Pt seen in ED, his bcx is positive for Gtam positive co cci in clustersPt blood cxObjective:Review of SystemsUnable to provideVitals:Patient V itals for the past 24 hrs: BP Temp Pulse Resp [id number]/20/19 1345 111/67 - 62 - - 0 [...] (MBP/ADV ) 100mL MBP 3.375 g IntraVENous [id number] Outpatient MedicationsMedication Sig la moTRIgine (LAMICTAL) 25 [...] Name Value Range Interpretation Code Description Data [facility](s) Supporting Document(s ) ID Date Data Source [id number] 04/20/2019 01:51:33 PM [facility] Pt baldder scanned:217ml. Dr. Hills not ified. Order obtained for blake. Name Value Range Interpretation Code Description Data [facility](s) Supporting Document(s ) ID Date Data Source [id number] 04/20/2019 12:13:31 PM [facility] Patient received on v60 Bipap @ 14/6 f20 50%/ . Patient taken off Bipap toassess skin breakdown and respiratory status. No signs of skin breakdown onnose or face at this time . Patient is placed on a evelyn nuous BiPAP due to mildrespiratory distress. Allevyn applied to prevent skin breakdow n with mediumsize face mask. Name Value Range Interpretation Code Description Data [facility](s) Supporting Document(s ) ID Date Data Source [id number] 04/20/2019 11:17:57 AM [facility] ADMISSION NOTENAME: Evelio Morgan B: 1950MRN: [id number]/Time: 04/20/2019 1:19 AMSubjective:CHIEF COMPLAI NT: Fever and HypoxiaHISTORY OF PRESENT ILLNESS:Evelio is a 68 y.o. male who was transferred from [facility] for heavy breathing,fever, Temp 102.6 and O2 [...] Calculation ( Bezet) 424 ms Calculated P [place] 44 degrees Calculated R [place] 26 degrees Calculated T [place] -44 degrees Diagnosis Sinus rhythmBorderline short PA intervalLVH wi th secondary repolarization abnormalityProbable anterior [...] PRESSURE SUPPORT 14 RATE 20 Performed by [id number] TIC ACID Collection Time: 04/19/19 2:20 PMResult [...] PRESSURE SUPPORT 14 RATE 20 Performed by [id number] essment/Plan:Active Problems: Pneumonia (11/08/2018) Acute hypoxemic respiratory [...] Supporting Document(s ) ID Date Data Source [id number] 04/20/2019 07:28:16 AM EST [facility] Verbal report/SBAR given to NANCY Navarro Name Value Range Interpretation Code Description Data Harriett rce(s) Supporting Document(s ) ID Date Data Source [id number] 04/20/2019 08:01:10 AM EST [facility] Name Value Range Interpretation Description Data Sup porting Code Source(s) Document(s ) Leukocytes 12.8 4.8-10.6 Above high normal [facility] - [#/volume] in K/uL Good Blood by [facility]rian[facility] Automated count [facility] Erythrocytes 3.23 4.70-6.0 Below low normal [facility] - [#/volume] in M/uL 0 Good Blood by [facility] Automated count Hospital Hemoglobin 10.1 14.0-18. Below low normal [facility] - [Mass/volume] in g/dL 0 Good Blood [facility] Hematocrit 31.8 % 42.0-52. Below low normal [facility] - [Volume 0 Good Fraction] of [facility] Blood by Hospital Automated count Erythrocyte mean 98.5 FL 81.0-94. Above high normal [facility] - corpuscular 0 Good volume [Entitic [facility]astrianism volume] by Hospital Automated count Erythrocyte mean 31.3 PG 27.0-35. [facility] - corpuscular 0 Good hemoglobin [facility] [Entitic mass] [facility] by Automated count Erythrocyte mean 31.8 30.7-37. [facility] - corpuscular g/dL 3 Good hemoglobin [facility] [Mass/volume] by Automated count Erythrocyte 16.7 % 11.5-14. Above high normal [facility] - distribution 0 Good width [Ratio] by [facility] Automated count Hospital Platelets 239 K/uL 130-400 [facility] - [#/volume] in Good Blood by [facility] Automated count Hospital Platelet mean 9.7 FL 9.2-11.8 [facility] - volume [Entitic Good volume] in Blood [facility] by Automated Hospital count Nucleated 0.0 PER 0 [facility] - erythrocytes/100 100 WBC Good leukocytes [facility] [Ratio] in Blood Hospital Nucleated 0.00 0.0-0.01 [facility] - erythrocytes K/uL Good [#/volume] in [facility] Segmented 64 % 48.0-72. [facility] - neutrophils/100 [address] in [facility] Band form 19 % 0 Above high normal [facility] - neutrophils/100 Good leukocytes in [facility] Blood by Manual Hospital count Lymphocytes/100 10 % 18.0-40. Below low normal [facility] - leukocytes in 0 [facility] Monocytes/100 6 % 2.0-12.0 [facility] - leukocytes in [facility] Eosinophils/100 0 % 0.0-7.0 [facility] - leukocytes in [facility] Basophils/100 0 % 0.0-3.0 [facility] - leukocytes in [facility] Myelocytes/100 1 % 0 Above high normal [facility] - leukocytes in [facility] Blood by Manual [facility] count Hospital Immature 0 % [facility] - granulocytes/100 Good leukocytes in [facility] Blood by Hospital Automated count Segmented 10.7 2.3-7.6 Above high normal [facility] - neutrophils K/UL Good [#/volume] in [facility] Lymphocytes 1.3 K/UL 0.9-4.2 [facility] - [#/volume] in [facility] Monocytes 0.8 K/UL 0.1-1.7 [facility] - [#/volume] in [facility] Eosinophils 0.0 K/UL 0.0-1.0 [facility] - [#/volume] in [facility] Blood [facility] Basophils 0.0 K/UL [facility] - [#/volume] in [facility] Blood [facility] Immature 0.0 K/UL [facility] - granulocytes Good [#/volume] in [facility] Blood by Hospital Automated count 1+ANISOCYTOSIS Platelet adequacy [Presence] in Blood by [facility] Light microscopy Differential cell count method - Blood [facility] ID Date Data Source [id number] 04/20/2019 05:13:32 AM EST [facility] Name Value Range Interpretation Description Data Sup porting Code Source(s) Document(s ) Troponin 0.00-0.05 [facility] - Good I.cardiac [facility] [Mass/volume Hospital ] in Serum or Plasma [...] to 1.50 ng/mL ID Date Data Source [id number] 04/20/2019 05:13:32 AM EST [facility] Name Value Range Interpretation Description Data Sup porting Code Source(s) Document(s ) Sodium 136 136-145 [facility] - Good [Moles/volume] mmol/L [facility] in Serum or Hospital Plasma Potassium 3.7 3.5-5.1 [facility] - Good [Moles/volume] mmol/L [facility] in Serum or Hospital Plasma Chloride 104 98-107 [facility] - Good [Moles/volume] mmol/L [facility] in Serum or Hospital Plasma Carbon 30 21-32 [facility] - Good dioxide, total mmol/L [facility] [Moles/volume] Hospital in Serum or Plasma Anion gap in 6 mmol/L 10-20 Below low normal [facility] - Go od Serum or [facility] Plasma Hospital Glucose 139 74-106 Above high normal [facility] - Good [Mass/volume] mg/dL [facility] in Serum or Hospital Plasma Urea nitrogen 13 mg/dL 7-18 [facility] - Good [Mass/volume] [facility]rianism in Serum or Hospital Plasma Creatinine 0.35 0.70-1.3 Below low normal [facility] - Good [Mass/volume] mg/dL 0 [facility] in Serum or Hospital Plasma Glomerular >60 [facility] - Good filtration [facility] rate/1.73 sq M Hospital predicted among blacks [Volume Rate/Area] in Serum or Plasma by Creatinine-bas ed formula (MDRD) Glomerular >60 [facility] - Good filtration [facility] rate/1.73 sq M Hospital predicted among non-blacks [Volume Rate/Area] in Serum or Plasma by Creatinine-bas ed formula (MDRD) Calcium 8.6 8.5-10.1 [facility] - Good [Mass/volume] mg/dL [facility] in Serum or Hospital Plasma Phosphate 2.0 2.5-4.9 Below low normal [facility] - Good [Mass/volume] mg/dL [facility] in Serum or Hospital Plasma Albumin 1.6 g/dL 3.5-4.7 Below low normal [facility] - Good [Mass/volume] [facility]rianism in Serum or Hospital Plasma by Bromocresol purple (BCP) dye binding method ID Date Data Source [id number] 04/20/2019 05:13:32 AM [facility] Name Value Range Interpretation Description Data Sup porting Code Source(s) Document(s ) Magnesium 1.7 mg/dL 1.6-2.6 [facility] - Good [Mass/volume] [facility]rianism in Serum or Hospital Plasma ID Date Data Source [id number] 04/19/2019 08:43:51 PM [facility] Spoke with RN from Only regarding pt's G-tube. He stated the centralport does not work and that they have been using t he larger of the two otherports (the suction port) for medications. Name Value Range Interpretation Code Description Data Harriett rce(s) Supporting Document(s ) ID Date Data Source [id number] 04/19/2019 07:59:21 PM [facility] Infectious Disease ConsultToday's Date: 04/19/2019Admit Date: 04/19/2019Subjective:Date of Consultation: April 19, 2019Referrmarty oro Physician: Justice Hills is a 68 y.o. male who is being seen for pneumonia /r/ o sepsis.Patientwith recurrent aspiration pneumonia,COPD,dysphagia,s/p peg placeme nt,acuterespiratory failure was brought by EMS from the intermediate for fever of10 2.6,lethargy,respiratory distress and tachycardia.He was afebrile on arrivalto the ER with hypotension.Patient is on BiPAP lethargic unable to providehistory.Histo ry obtained from chart review.Patient Active Problem ListDiagnosis Code Paraesophage al hiatal hernia K44.9 COPD (chronic obstructive pulmonary disease) ([facility]) J44 .9 Acute respiratory distress R06.03 Pneumonia J18.9 COPD exacerbation ([facility]) J44.1 Sepsis due to undetermined organism ([facility]) A41.9 Generalized anxiety disorde r F41.1 Acute respiratory failure with hypoxia ([facility]) J96.01 Pneumonia involvin g right lung J18.9 Hyponatremia E87.1 SOB (shortness of breath) R06.02 Pressure i njury of right heel, stage 2 ([facility]) L89.612 Leg wound, right, initial encounter S81. 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 No pertinent family history.Social HistoryTobacco [...] 1 Tab by Per G [facility]. MaxDaily Amount: 3.75 mg. 12/30/18 Mili Hills [...] norm al.Neurologic: UnresponsiveData Review:Labs:Recent Results (from the [facility] t 24 hour(s))EKG, 12 LEAD, INITIAL Collection Time: 04/19/19 9:58 AMResult Value Ref Range Ventricular Rate 92 BPM Atrial Rate 93 BPM P-R Interval 110 ms QRS Duration 95 ms Q-T Interval 343 ms QTC Calculation (Bezet) 424 ms Calculated P [place] 44 degr ees Calculated R [place] 26 degrees Calculated T [place] -44 degrees Diagnosis Sinus rhythm Borderline short PA intervalLVH with secondary repolarization abnormalityProb able anterior [...] PRESSURE SUPPORT 14 RATE 20 Performed by [id number] ACID Collection Time: 09/01 2:20 PMResult Value [...] URE SUPPORT 14 RATE 20 Performed by [id number]:Cultures:Lab ResultsCo mponent Value Date/Time Culture result: NO [...] sheath in situ. Through the sheatha 5 Emirati double-lumen 20 cm midl ine catheter was placed. The peel-away sheathwas removed. The catheter was sewn into position using 2-0 silk sutures. Thepatient tolerated the procedure. Ther e were no complications at the time of theprocedure. FINDINGS: Ultrasound inter rogation revealed a widely patent brachialvein above the antecubital fossa . A 5 Emirati dual-lumen 20 cm midline catheterwas placed. The tip was placed i n good position over the right axillary vein.IMPRESSION: 5 Emirati dual-lumen mid line catheter placed with tip [...] CARLIN THIS IS AFINAL REPORT FROM IMAGING RESIDENTIAL SALES REPRESENTATIVE DATE OF SERVICE: 2019-01-21 22:23:43 IMAGES: 1EXAM: [...] Mireya.DGualberto Please call Imaging On [phone] ([phone]) with questions. This report was electronically signedby: [...] venous spectral Doppler studies are performed using [place] r Doppler Flowand enhanced Duplex Spectral technique. [...] Supporting Document(s ) ID Date Data Source [id number] 04/19/2019 06:47:30 PM EST [facility] Dr. Hills in to evaluate the patient at this time. Name Value Range Interpretation Code Description Data Harriett rce(s) Supporting Document(s ) ID Date Data Source [id number] 04/19/2019 05:00:16 PM EST [facility] - [facility] Name Value Range Interpretation Description Data Sup porting Code Source(s) Document(s ) pH of Arterial 7.30 7.35-7.4 Below low normal [facility] - Good blood 5 [facility] Carbon dioxide 60 mmHg 32-48 Above high normal [facility] - Good [Partial Zoroastrianism pressure] in Hospital Arterial blood Oxygen 134 mmHg 83-108 Above high normal [facility] - Good [Partial [facility]astrianism pressure] in Hospital Arterial blood Carbon 31 19-24 Above high normal [facility] - Good dioxide, total mmol/L [facility] [Moles/volume] Hospital in Arterial blood Bicarbonate 30 21-28 Above high normal [facility] - Go od [Moles/volume] mmol/L [facility] in Arterial Hospital blood Oxygen 100 % 94-98 Above high normal [facility] - Good saturation in [facility] Base excess in 1.6 0-3 [facility] - Good Arterial blood mmol/L [facility] by calculation Hospital Body site [facility] - Good [facility] Arterial [facility] - Good patency Wrist [facility] artery --pre Hospital arterial puncture Oxygen gas [facility] - Good flow Oxygen [facility]rianism delivery [facility] system Oxygen/Inspire 65.0 % [facility] - Good d gas [facility] Respiratory Hospital system --on ventilator Ventilation [facility] - Good mode [facility] [Identifier] [facility] Ventilator PEEP 5 [facility] - Good Respiratory [facility] system Hospital Pressure 14 [facility] - Good support [facility] Hospital Ventilator Respiratory 20 [facility] - Good rate [facility] [address] [facility] - Good comment [facility] ID Date Data Source [id number] 04/19/2019 05:51:37 PM EST [facility] Name Value Range Interpretation Description Data Sup porting Code Source(s) Document(s ) Color of Urine YEL [facility] Appearance of CLEAR [facility] - Urine [facility] Specific gravity 1.015 1.003-1. [facility] - of Urine by 030 Good Refractometry [facility] pH of Urine by 7.0 4.6-8.0 [facility] - Test strip [facility] Protein NEG [facility] - [Mass/volume] in Good Urine by Test [facility] Glucose NEG [facility] - [Mass/volume] in Good Urine by [facility]rianism Automated test [facility] strip Ketones NEG [facility] - [Presence] in Good Urine by [facility] test [facility] strip Bilirubin.total NEG [facility] - [Presence] in Good Urine [facility] Hemoglobin NEG [facility] - [Presence] in Good Urine by [facility] Urobilinogen 1.0 0.2-1.0 [facility] - [Presence] in EU/dL Good Urine by [facility] Automated test Hospital strip Nitrite NEG [facility] - [Presence] in Good Urine by [facility] Automated test [facility] strip Leukocyte NEG [facility] - esterase Good [Presence] in [facility]ism Urine by Hospital Automated test strip ID Date Data Source [id number] 04/19/2019 03:09:57 PM EST [facility] PULMONARY/ CCM- Consult [facility]Krystian Monae MD., F.C.C.P.Stella Hamilton MD., F.C.C.P. 9W 1 [facility] [address] [place] [id number] [place] [address] Patient: Evelio Carlin Sex: male DOA: 04/19/2019Date [...] , PO2 86 , HCO3 =37 , KVQ384 %CHEST XRAY - ATELECTASIS L L L , COPD , KYPHOSCOLIOSIS . PAST HCX PUL;MONARY EMBOLISM .We were asked to ad [facility] for work up and evaluation of the [...] hrs: BP Temp Pulse Resp SpO2 Height Dnllwr02/05/20 1400 95/63 - 62 26 100 % [...] Calculation ( Bezet) 424 ms Calculated P [place] 44 degrees Calculated R [place] 26 degrees Calculated T [place] -44 degrees Diagnosis Sinus rhythmBorderline short PA intervalLVH wi th secondary repolarization abnormalityProbable anterior [...] 0.0 - 0.17 K/UL DF AUTOMATEDMETABOLIC PANEL, [facility] Collection Time: 04/19/19 10:15 AMResult Value Ref [...] PRESSURE SUPPORT 14 RATE 20 Performed by [id number] :Recent Labs 04/19/200945PH 7.42PCO2 55*PO2 86HCO3 36*FIO2 70.0Recent Glucose Result s:Lab ResultsComponent Value Date/Time GLU 118 (H) 04/19/2019 10:15 AMCULTURES:All Micro Results Procedure Component Value Units Date/Time CULTURE, BLOOD [[id number]] Col lected: 04/19/19 1005 Order Status: Completed Specimen: Blood Updated: 09/01 1049 CULTURE, BLOOD [[id number]] Collected: 04/19/19 1015 Order Status: Completed Specimen: [...] Plan discussed with: CommentsPatientFamily Kevon MORROW [facility] Physician X Shift Supervisor: Kevon HILLS Re comme nded Disposition:Home with [...] Supporting Document(s ) ID Date Data Source [id number] 04/19/2019 02:32:16 PM [facility] Attestation signed by Faisal Marinelli MD at 04/19/19 14 32I was personally available for consultation in the Emergency Department. I havereviewed the chart and agree with the documentation recorded by the midlevelprovider, including the asse ssment, treatment plan, and disposition. HPI68 yo male with history of schizophre freddy, mental retardation, dysphagia withPEG, COPD is brought to the ED via EMS from [facility] for evaluation ofrespiratory distress. It is not [...] file Gets together: Not on file Attends yarsanism service: Not on file Active member of [...] needed for Pain or Fever. 03/17/19 Mili Hilsl DOacetylcysteine (MUCOMYST) 100 mg/mL (10 %) nebulizer [...] QTC Calculation (Bezet) 424 ms Calculated P [place] 44 degrees Calculated R [place] 26 degrees Calculated T [place] -44 degrees Diagnosis Sinus rhythmBorderline short PA intervalLVH with secondary repolarization abnormalityProbable anterior infarct, [...] PRESSURE SUPPORT 14 RATE 20 Performed by [id number]:Xr Chest PortResult Date: 04/19/2019History: Respiratory difficulty. FINDINGS: [...] unresponsive male presents to the ED fro [facility] via EMS for evaluation ofrespiratory distress, unknown duration of time. Hx of COPD.Pat ient's oxygen saturation is 82% on 100% NRB mask with respiratory rateupwards of 40 breat hs per minute. Patient placed on Bi Pap soon after arrival.Septic bundle, Zosyn and Vancomy cinABG, Tylenol suppository PRN every 4 hours for feverDuo Neb, Vctuzfmuag42:58 new T wave inversion in leads III, V1, V3, V4, -6 possibly due to demandischemia. Troponin added to lab s.10:45 ABG consistent with COPD exacerbation. PCO2 5511:38 AMOxygen saturation is improved. Will repeat ABG and potentially lower FIO2 from70 %. Patient appears to be breathing easie r with BiPap. Dr Hills consulted foradmission orders.CXR demonstrates bibasilar infilt rates. No lasnovfndbvx33:[address]MPatient [address] endorsed to Dr Hills for admissionFinal Impression/ Diagnosis:Encounter Diagnoses ICD-10-CM ICD-9-CM1. Acute exacerbation of chronic obstructiv e pulmonary disease (COPD) ([facility])J44.1 491.212. Acute hypoxemic respiratory failure ([facility]) J96. 01 518.813. Pneumonia of both lower lobes due to infectious organism ([facility]) J18.1 483.8Pat ient condition at time of disposition: Neeta Stern,attest that all of the info rmation above was obtained by myselfunder the supervision of Faisal Marinelli MD. I have o rdered and reviewed thediagnostic studies, unless otherwise noted.Neeta Coleman MSN, SPINNER CAP FRAME-BC , ENP-C Name Value Range Interpretation Code Description Data Harriett rce(s) Supporting Document(s ) ID Date Data Source [id number] 04/19/2019 03:23:48 PM [facility] Name Value Range Interpretation Description Data Sup porting Code Source(s) Document(s ) Lactate 1.8 0.4-2.0 [facility] [Moles/volu MMOL/L [facility]] in Hospital Serum or Plasma ID Date Data Source [id number] 04/19/2019 10:43:57 AM [facility] History:Respiratory difficulty.FINDINGS: A frontal portable view [...] Supporting Document(s ) ID Date Data Source [id number] 04/19/2019 10:46:37 AM EST [facility] - G ood [facility] Value Range Interpretation Description Data Sup porting Code Source(s) Document(s ) pH of Arterial 7.42 7.35-7.4 [facility] blood 5 [facility] Carbon dioxide 55 mmHg 32-48 Above high normal [facility] - Good [Partial Zoroastrianism pressure] in Hospital Arterial blood Oxygen 86 mmHg 83-108 [facility] - Good [Partial Zoroastrianism pressure] in Hospital Arterial blood Carbon 37 19-24 Above high normal [facility] - Good dioxide, total mmol/L [facility] [Moles/volume] Hospital in Arterial blood Bicarbonate 36 21-28 Above high normal [facility] - Go od [Moles/volume] mmol/L [facility] in Arterial Hospital blood Oxygen 99 % 94-98 Above high normal [facility] - Good saturation in [facility] Base excess in 9.3 0-3 Above high normal [facility] - Good Arterial blood mmol/L [facility]ism by calculation Hospital Body site [facility] - Good [facility] Arterial [facility] - Good patency Wrist Zoroastrianism artery --pre Hospital arterial puncture Oxygen gas [facility] - Good flow Oxygen [facility] Hospital system Oxygen/Inspire 70.0 % [facility] - Good d gas [facility]rianism Respiratory [facility] system --on ventilator Ventilation [facility] - Good mode [facility]rianism [Identifier] [facility] Ventilator PEEP 5 [facility] - Good Respiratory [facility] system Hospital Pressure 14 [facility] - Good support [facility] Ventilator Respiratory 20 [facility] - Good rate [facility] Service 11500 [facility] - Good comment [facility] ID Date Data Source [id number] 04/22/2019 07:29:54 AM EST [facility] Good [facility] Value Range Interpretation Code Description Data Harriett rce(s) Supporting Document(s ) Service [facility] - Good comment [facility] GRAM POSITIVE COCCIIN CLUSTERSANAEROBIC BOTTLECALLED TO AND READ BACK BYROB LEDEZMA, RN, ED, AT 0953 ON 04/20/19 TO RI SMIRAGLIA Bacteria identified in Abnormal (applies to [facility] Unspecified specimen by non-numeric results) Hospital Culture ID Date Data Source [id number] 04/22/2019 07:29:54 AM EST [facility] Value Range Interpretation Code Description Data Supporting Source(s) Document(s ) Clindamycin Results entered -- [facility] - [Susceptibility] not verified Good by Minimum [facility]astrianism inhibitory Hospital concentration (ANTONIO) Erythromycin Results entered -- BSS - [Susceptibility] not verified Good by Minimum Zoroastrianism inhibitory Hospital concentration (ANTONIO) Gentamicin Susceptible. [facility] - [Susceptibility] Indicates for Good by Minimum microbiology Zoroastrianism inhibitory susceptibilities Hospital concentration only. (ANTONIO) Oxacillin Results entered -- BSS - [Susceptibility] not verified Good by Minimum Zoroastrianism inhibitory [facility] concentration (ANTONIO) Penicillin G Results entered -- BSS - [Susceptibility] not verified Good by Minimum [facility]astrianism inhibitory Hospital concentration (ANTONIO) Vancomycin 2 ug/mL Susceptible. [facility] - [Susceptibility] Indicates for Good by Minimum microbiology Zoroastrianism inhibitory susceptibilities Hospital concentration only. (ANTONIO) Tetracycline Results entered -- [facility] - [Susceptibility] not verified Good by Minimum Zoroastrianism inhibitory [facility] concentration (ANTONIO) ID Date Data Source [id number] 04/19/2019 12:27:44 PM EST [facility] Value Range Interpretation Description Data Sup porting Code Source(s) Document(s ) Troponin 0.05 0.00-0.05 [facility] I.cardiac NG/ML [facility]rianism [Mass/volume [facility] ] in Serum or Plasma (NOTE)The [...] to 1.50 ng/mL ID Date Data Source [id number] 04/19/2019 11:31:17 AM EST [facility] Name Value Range Interpretation Description Data Sup porting Code Source(s) Document(s ) Lactate 2.6 0.4-2.0 Above upper panic [facility] - Good [Moles/volu MMOL/L limits [facility]ism me] in Hospital Serum or Plasma CALLED TO AND READ BACK BY NANCY BATISTA 04/19/19 @1131 JULISSA BRAN ID Date Data Source [id number] 04/19/2019 11:07:11 AM EST [facility] Name Value Range Interpretation Description Data Sup porting Code Source(s) Document(s ) Sodium 134 136-145 Below low normal [facility] - Good [Moles/volume] mmol/L [facility] in Serum or Hospital Plasma Potassium 3.7 3.5-5.1 [facility] - Good [Moles/volume] mmol/L [facility] in Serum or Hospital Plasma Chloride 92 98-107 Below low normal [facility] - Good [Moles/volume] mmol/L [facility] in Serum or Hospital Plasma Carbon 37 21-32 Above high normal [facility] - Good dioxide, total mmol/L [facility] [Moles/volume] Hospital in Serum or Plasma Anion gap in 9 mmol/L 10-20 Below low normal [facility] - Go od Serum or [facility]astrianism Plasma Hospital Glucose 118 74-106 Above high normal [facility] - Good [Mass/volume] mg/dL [facility]ism in Serum or Hospital Plasma Urea nitrogen 16 mg/dL 7-18 [facility] - Good [Mass/volume] [facility]astrianism in Serum or Hospital Plasma Creatinine 0.69 0.70-1.3 Below low normal [facility] - Good [Mass/volume] mg/dL 0 [facility] in Serum or Hospital Plasma Glomerular >60 [facility] - Good filtration Z[facility]astrianism rate/1.73 sq M Hospital predicted among blacks [Volume Rate/Area] in Serum or Plasma by Creatinine-bas ed formula (MDRD) Glomerular >60 [facility] - Good filtration [facility]rianism rate/1.73 sq M Hospital predicted among non-blacks [Volume Rate/Area] in Serum or Plasma by Creatinine-bas ed formula (MDRD) (NOTE)Estimated GFR is calculated using the Modification of Diet in RenalDisease (MDRD) Study equation, reported for both Americans(GFRAA) and non- Americans (GFRNA), and normalized to 1.7 6z4ybqr surface area. The physician must decide which [...] 8.5-10.1 [facility] - Good Serum or Plasma [facility] ital Bilirubin.total 0.2 mg/dL 0.2-1.0 [facility] - Good [Mass/volume] in Serum or [facility] Plasma Alanine aminotransferase 12 U/L 13-61 Below low normal [facility] - Good [Enzymatic activity/volume] [facility] in Serum or Plasma Aspartate aminotransferase 21 U/L 15-37 [facility] HS - Good [Enzymatic activity/volume] [facility] in Serum or Plasma by With P-5'-P Alkaline phosphatase 75 U/L 45-117 [facility] - G ood [Enzymatic activity/volume] [facility] in Serum or Plasma Protein [Mass/volume] in 6.3 g/dL 6.4-8.2 Below low normal [facility] - Good Serum or Plasma [facility] ital Albumin [Mass/volume] in 2.1 g/dL 3.5-4.7 Below low normal [facility] - Good Serum or Plasma by [facility] ospital Bromocresol purple (BCP) dye binding method Globulin [Mass/volume] in 4.2 g/dL 1.7-4.7 [facility] - Good Serum by calculation [facility] Albumin/Globulin [Mass 0.5 0.7-2.8 Below low normal [facility] - Good Ratio] in Serum or Plasma [facility] ID Date Data Source [id number] 04/19/2019 11:04:01 AM EST [facility] Name Value Range Interpretation Description Data Sup porting Code Source(s) Document(s ) Leukocytes 8.1 K/uL 4.8-10.6 [facility] - [#/volume] in Good Blood by [facility]astrianism Automated count Hospital Erythrocytes 3.78 4.70-6.0 Below low normal [facility] - [#/volume] in M/uL 0 Good Blood by Zoroastrianism Automated count Hospital Hemoglobin 11.8 14.0-18. Below low normal [facility] - [Mass/volume] in g/dL 0 [facility] Blood [facility] Hematocrit 36.7 % 42.0-52. Below low normal [facility] - [Volume 0 Good Fraction] of Zoroastrianism Blood by Hospital Automated count Erythrocyte mean 97.1 FL 81.0-94. Above high normal [facility] - corpuscular 0 Good volume [Entitic Zoroastrianism volume] by Hospital Automated count Erythrocyte mean 31.2 PG 27.0-35. [facility] - corpuscular 0 Good hemoglobin Zoroastrianism [Entitic mass] Hospital by Automated count Erythrocyte mean 32.2 30.7-37. [facility] - corpuscular g/dL 3 Good hemoglobin [facility] [Mass/volume] by Automated count Erythrocyte 16.6 % 11.5-14. Above high normal [facility] - distribution 0 Good width [Ratio] by Zoroastrianism Automated count Hospital Platelets 247 K/uL 130-400 [facility] - [#/volume] in Good Blood by Zoroastrianism Automated count Hospital Platelet mean 9.4 FL 9.2-11.8 [facility] - volume [Entitic Good volume] in Blood [facility]astrianism by Automated Hospital count Nucleated 0.0 PER 0 [facility] - erythrocytes/100 100 WBC Good leukocytes Zoroastrianism [Ratio] in Blood Hospital Nucleated 0.00 0.0-0.01 [facility] - erythrocytes K/uL Good [#/volume] in Zoroastrianism Blood [facility] Segmented 78 % 48.0-72. Above high normal [facility] - neutrophils/100 [address] Good leukocytes in [facility] Lymphocytes/100 9 % 18.0-40. Below low normal [facility] - leukocytes in 0 [facility] Blood [facility] Monocytes/100 12 % 2.0-12.0 [facility] - leukocytes in Good Blood [facility] Eosinophils/100 0 % 0.0-7.0 [facility] - leukocytes in Good Blood [facility] Basophils/100 0 % 0.0-3.0 [facility] - leukocytes in [facility] Immature 1 % 0-0.5 Above high normal [facility] - granulocytes/100 [facility] leukocytes in [facility] by Hospital Automated count Segmented 6.4 K/UL 2.3-7.6 [facility] - neutrophils Good [#/volume] in [facility] Lymphocytes 0.7 K/UL 0.9-4.2 Below low normal [facility] - [#/volume] in [facility] Monocytes 1.0 K/UL 0.1-1.7 [facility] - [#/volume] in [facility] Eosinophils 0.0 K/UL 0.0-1.0 [facility] - [#/volume] in [facility] Basophils 0.0 K/UL 0.0-0.4 [facility] - [#/volume] in [facility] Immature 0.1 K/UL 0.0-0.17 [facility] - granulocytes Good [#/volume] in [facility] Hospital Automated count Differential [facility] - cell count [facility] ID Date Data Source [id number] 04/22/2019 07:31:57 AM EST [facility] Name Value Range Interpretation Code Description Data Harriett rce(s) Supporting Document(s ) Service [facility] GRAM POSITIVE COCCIIN CLUSTERSANAEROBIC BOTTLECALLED TO AND READ BACK BYROB LEDEZMA RN, ED, 0901 ON 04/20/19 RK Fitzpatrick MIRAGLIASTAPHYLOCOCCUS EPIDERMIDIS: Refer to previous culture(s) for susceptibility r esults ID Date Data Source [id number] 04/19/2019 09:52:52 AM EST [facility] Pt BIBA from Only c/o respiratory distress and altered mental status. Ptreceived Tylenol prior to arrival in [facility]. Name Value Range Interpretation Code Description Data Harriett rce(s) Supporting Document(s ) ID Date Data Source [id number] 04/16/2019 02:24:15 PM EST [facility] TRANSFER - OUT REPORT:Verbal report give n to Ana María nursing sheet mill supervisor on Evelio Fischbein [facility] progression of careReport consisted of patient's Situation, Backgr ound, Assessment andRecommendations(SBAR).Information fro m the following report(s) SBAR, Procedure Summary and MAR wasreviewed with the [facility] eiving nurse.Opportunity for questions and clarification was provided.Patient trans ported with: O2 @ 4 litersTech Name Value Range Interpretation Code Description Data Harriett rce(s) Supporting Document(s ) ID Date Data Source [id number] 04/16/2019 02:01:17 PM EST [facility] Esophago- Gastroduodenoscopy (EGD) Dea [id number]: Endo scopic Gastroduodenoscopy with positioning of J [...] Supporting Document(s ) ID Date Data Source [id number] 04/16/2019 01:51:44 PM EST [facility] Procedure(s):ESOPHAGOGASTRODUODENOSCOPY (EGD) J TUBE ADJUSTING.MACAnesthesia Post [...] Supporting Document(s ) ID Date Data Source [id number] 04/16/2019 12:58:40 PM EST [facility] Relevant ProblemsNo relevant active prob lemsAnesthetic [...] risks discussed with: Healthcar e power of vocational examiner Name Value Range Interpretation Code Description Data Harriett rce(s) Supporting Document(s ) ID Date Data Source [id number] 04/06/2019 05:44:17 PM EST [facility] Patient discharged without removing armb and and transfered to another healthcareacute, sub acute , or extended care facility. Informed of privacy risks ifarmband lost or stolen Name Value Range Interpretation Code Description Data [facility] rce(s) Supporting Document(s ) ID Date Data Source [id number] 04/06/2019 04:51:11 PM EST [facility] Name Value Range Interpretation Description Data Sup porting Code Source(s) Document(s ) Glucose 74 MG/DL 65-110 [facility] [Mass/volume] Zoroastrianism in Blood by Hospital Automated test strip ID Date Data Source [id number] 04/06/2019 03:29:39 PM [facility] ID Progress Note04/06/2019Subjective:Betty ient with history of MR,COPD,recurrent aspiration pneumonia,dysphagia s/p pegpl acement was transferred from the intermediate for respiratory distress,lowoxygen satur ation of 77% on 4 L nasal canula.Awake non verbal,unale to provide historyAfebrile. Objective:Review of SystemsUnable to provide.Vitals:Patient Vitals for the mt st 24 hrs: BP Temp Pulse Resp SpO2 Ozdwkk20/23/19 1225 119/65 98.2 F (36.8 C) 71 [...] suppository 10 mg 10 mg Rectal DAILY PA N potassium, sodium phosphates (NEUTRA-PHOS) packet 1 [...] Supporting Document(s ) ID Date Data Source [id number] 04/06/2019 02:19:43 PM EST [facility] GI PROGRESS NOTENAME: Evelio Shukla hbeinDOB: 1950MRN: [id number]:Reviewed the barium tu be study. Barium in [...] hernia K44.9 COPD (chronic obstructive pulmonary disease) ([facility]) J44 .9 Acute respiratory distress R06.03 Pneumonia J18.9 COPD exacerbation ([facility]) J44.1 Sepsis due to undetermined organism ([facility]) A41.9 Generalized anxiety disorde r F41.1 Acute respiratory failure with hypoxia ([facility]) J96.01 Pneumonia involvin g right lung J18.9 Hyponatremia E87.1 SOB (shortness of breath) R06.02 Pressure i njury of right heel, stage 2 ([facility]) L89.612 Leg wound, right, initial encounter S81. 801A Acute hypoxemic respiratory failure ([facility]) J96.01Assessment: Dysfunctional J tube over PEG [...] Supporting Document(s ) ID Date Data Source [id number] 04/06/2019 12:59:17 PM EST [facility] Per RN, Documented in error. Name Value Range Interpretation Code Description Data Harriett rce(s) Supporting Document(s ) ID Date Data Source [id number] 04/06/2019 12:37:20 PM EST [facility] Discharge SummaryPatient: Evelio barlow Sex: male [...] Leg wound, right, initial encounter ICD-10-CM: S81. 953RCDQ-1-RI: 894.0 02/09/2019 - Present SOB (shortness of [...] 250 mg/5 mL (5 mL) soln oral ibspxotp757 mg by Per G Tu be route [...] Name Value Range Interpretation Code Description Data [facility] rce(s) Supporting Document(s ) ID Date Data Source [id number] 04/06/2019 12:19:25 PM [facility] Name Value Range Interpretation Description Data Sup porting Code Source(s) Document(s ) Glucose 117 MG/DL 65-110 Above high normal [facility] [Mass/volume] Zoroastrianism in Blood by [facility] Automated test strip ID Date Data Source [id number] 04/06/2019 11:40:29 AM [facility] CM provided RN with pt sister Michell dayton alonso number to call to give an update on ptas requested. Name Value Range Interpretation Code Description Data [facility] rce(s) Supporting Document(s ) ID Date Data Source [id number] 04/06/2019 11:39:49 AM [facility] Care Management InterventionsPCP Verifie d by CM: YesMode of Transport at Discharge: S([facility] 6 pm)Transition of Care Consult (CM Consult): Discharge PlanningMyChart Signup: NoDischarge Dura ble Medical Equipment: NoPhysical Therapy Consult: NoOccupational Therapy Consult: NoSpeech Therapy Consult: NoCurrent Support Network: Nursing Facility(Only )T he Patient and/or Patient Software Applications Engineer was Provided with a Choice of Providerand Ag phillip with the Discharge Plan?: YesFreedom of Choice List was Provided with Basic Dial ogue that Supports thePatient's Individualized Plan of Care/Goals, Treat ment Preferences and Sharesthe Quality Data Associated with the Providers?: YesVeter an Resource Information Provided?: RefusedDischarge LocationDischarge Place ment: Home([facility])Case Management Discharge Note: Pt sister MD Michell, RN, and liaison all aware and in agreement. CM remainsavailable for any further dischar ge needs. Name Value Range Interpretation Code Description Data Harriett rce(s) Supporting Document(s ) ID Date Data Source [id number] 04/06/2019 11:21:47 AM EST [facility] Progress NoteMIDSTATE MED[facility] ,[facility].Krystian Monae MD., F.C.C.P.Stella Hamilton MD., F.C.C.P. 9W 1 [facility] [address] [place] [id number] [place] [address] [phone]: Evelio Carlin Sex: male DOA: 03/25/2019D ate of : 1950 Age: 68 y.o. LOS: LOS: 12 daysSubjective:Mr. Guillermo buck is a 68 y.o. [...] via emergency medical services sent in from intermediate for hypoxiaand possible pne [facility]. The patient has multiple incidences of pneumonia [...] 250 mg/5 mL (5 mL) soln oral ubhbcqan928 mg by Per G Tube route every [...] 24 hrs: BP Temp Pulse Resp SpO2 Vatqxu36/23/19 0918 - - - - 99 % [...] Procedure Component Value Units Date/Time CULTURE, BLOOD [[id number]] Collected: 03/25/19 0255 Order Status: Completed Specimen: Bloo d Updated: 03/30/19620 Special Requests: NO SPECIAL REQUESTS Culture result: NO GROWTH 5 DAYS CULTURE, BLOOD [[id number]] Collected: 03/25/19309 Order Status: Completed Specimen: Blood [...] sheath in situ. Through the sheatha 5 Emirati double-lumen 20 cm midl ine catheter was placed. The peel-away sheathwas removed. The catheter was sewn into position using 2-0 silk sutures. Thepatient tolerated the procedure. Ther e were no complications at the time of theprocedure. FINDINGS: Ultrasound inter rogation revealed a widely patent brachialvein above the antecubital fossa . A 5 Emirati dual-lumen 20 cm midline catheterwas placed. The tip was placed i n good position over the right axillary vein.IMPRESSION: 5 Emirati dual-lumen mid line catheter placed with tip positioned overthe right axillary vein.Ct Chest Wo ContResult Date: 03/14/2019History: Respiratory difficulty. FINDINGS: CT sca nning of the chest wasperformed helically from lung apices to the upper abdomen wi thout intravenouscontrast dural. Sagittal and coronal reconstructed images are submitt ed.Scanning was performed utilizing dose lowering techniques and is [facility] of 01/15/2019. Evaluation of thoracic vascular [...] RETARDATION8. KYPHOSIS9. HYPOVENTILATIO N 10. METABOLIC ENCEPHALOPATHY [id number]. P EG TUB IS WORKING WELL PER [...] Name Value Range Interpretation Code Description Data [facility] rce(s) Supporting Document(s ) ID Date Data Source [id number] 04/06/2019 11:17:57 AM [facility] YUAN completed and faxed to Only, paper chart completed for transfer. Name Value Range Interpretation Code Description Data [facility] rce(s) Supporting Document(s ) ID Date Data Source [id number] 04/06/2019 10:13:48 AM [facility] Progress NotePatient: Evelio Carlin Sex: male [...] mlOutput 400 mlNet -400 mlLab/Data Reviewed:Recent Labs 96063 534 715WBC 11.3* 9.1 9.6HGB 13.4* 12.5* 12.5*PLT 349 335 237B UN 17 12 10CREA 0.52* 0.38* 0.39*NA 140 137 133*CL 98 96* 93*K 4.6 4.4 4.6MG 2.2 2.1 1.9CA 10.6* 9.6 10.0Special Requests:Date Value Ref Range Qstyqi9703/25/2019 NO SPEC IAL REQUESTS FinalCulture result:Date Value Ref Range Gaovki9903/25/2019 NO GROWTH 5 D AYS FinalXR Results [...] planning , for today.6. [facility]Continue current treatment.My assessment, plan of care, findings, medi cations, side effects etc werediscussed with:[X]nursing [ ]PT/OT[ ]respiratory therapy [ ][ ]family [ ]Isa Lopez, MDDecember 201810:01 AM Name Value Range Interpretation Code Description Data Harriett rce(s) Supporting Document(s ) ID Date Data Source [id number] 04/06/2019 09:33:33 AM EST [facility] Bella Carlin68 y.o.Adm it Date: 03/25/2019Active [...] 04/06/19 07 - 04/07/19 0659Shift 07- 1858 1404-9686 24 Hour Total 6175-1110 0238-2829 24 Hour TotalINTAKENG/GT 0 0 0 Water [...] PRN Jessie Neumann MD 10 mL at 03/16 06/03 0620 [...] Supporting Document(s ) ID Date Data Source [id number] 04/06/2019 08:25:54 AM EST [facility] CHEST one viewHISTORY: Pneumonia.COMPARI SON: 03/25/2019.There [...] Name Value Range Interpretation Code Description Data [facility] rce(s) Supporting Document(s ) ID Date Data Source [id number] 04/06/2019 07:27:48 AM EST [facility] Review BIPAP settings, alarms and skin a dhesive With next shift RT Gill Ofelia Name Value Range Interpretation Code Description Data Harriett rce(s) Supporting Document(s ) ID Date Data Source [id number] 04/06/2019 07:19:19 AM EST [facility] Name Value Range Interpretation Description Data Sup porting Code Source(s) Document(s ) Glucose 86 MG/DL 65-110 [facility] [Mass/volume] Zoroastrianism in Blood by Hospital Automated test strip ID Date Data Source [id number] 04/06/2019 06:37:49 AM EST [facility] Bedside and Verbal shift change report carol pham to Joao Calderon RN (oncoming nurse) byGaston Starr RN (offgoing nurse). Report included the following information SBAR,Kardex and MAR. Name Value Range Interpretation Code Description Data Harreitt rce(s) Supporting Document(s ) ID Date Data Source [id number] 04/06/2019 06:57:52 AM EST [facility] Name Value Range Interpretation Description Data Sup porting Code Source(s) Document(s ) Glucose 89 MG/DL 65-110 [facility] - Good [Mass/volume] Zoroastrianism in Blood by [facility] Automated test strip ID Date Data Source [id number] 04/06/2019 08:54:10 AM EST [facility] Name Value Range Interpretation Description Data Sup porting Code Source(s) Document(s ) Leukocytes 11.3 4.8-10.6 Above high normal [facility] - [#/volume] in K/uL Good Blood by [facility] Erythrocytes 4.29 4.70-6.0 Below low normal [facility] - [#/volume] in M/uL 0 Good Blood by [facility] Hemoglobin 13.4 14.0-18. Below low normal [facility] - [Mass/volume] in g/dL 0 Good Blood [facility] Hematocrit 42.5 % 42.0-52. [facility] - [Volume 0 Good Fraction] of Zoroastrianism Blood by [facility] Automated count Erythrocyte mean 99.1 FL 81.0-94. Above high normal [facility] - corpuscular 0 Good volume [Entitic Zoroastrianism volume] by Hospital Automated count Erythrocyte mean 31.2 PG 27.0-35. [facility] - corpuscular 0 Good hemoglobin Zoroastrianism [Entitic mass] Hospital by Automated count Erythrocyte mean 31.5 30.7-37. [facility] - corpuscular g/dL 3 Good hemoglobin Zoroastrianism concentration Hospital [Mass/volume] by Automated count Erythrocyte 17.0 % 11.5-14. Above high normal [facility] - distribution 0 Good width [Ratio] by Zoroastrianism Automated count Hospital Platelets 349 K/uL 130-400 [facility] - [#/volume] in Good Blood by [facility] Automated count Hospital Platelet mean 10.1 FL 9.2-11.8 [facility] - volume [Entitic Good volume] in Blood Zoroastrianism by Automated Hospital count Nucleated 0.0 PER 0 [facility] - erythrocytes/100 100 WBC Good leukocytes Zoroastrianism [Ratio] in Blood Hospital Nucleated 0.00 0.0-0.01 [facility] - erythrocytes K/uL Good [#/volume] in [facility] Segmented 46 % 48.0-72. Below low normal [facility] - neutrophils/100 [address] in [facility] Lymphocytes/100 36 % 18.0-40. [facility] - leukocytes in 0 [facility] Blood [facility] Monocytes/100 7 % 2.0-12.0 [facility] - leukocytes in [facility] Blood [facility] Eosinophils/100 2 % 0.0-7.0 [facility] - leukocytes in [facility] Blood [facility] Basophils/100 0 % 0.0-3.0 [facility] - leukocytes in [facility] Blood [facility] Metamyelocytes/1 1 % 0 Above high normal [facility] - 00 leukocytes in [facility] Blood by [facility] count Hospital Myelocytes/100 8 % 0 Above high normal [facility] - leukocytes in Good Blood by [facility] count [facility] Immature 0 % [facility] - granulocytes/100 Good leukocytes in [facility] by Hospital Automated count Segmented 6.2 K/UL 2.3-7.6 [facility] - neutrophils Good [#/volume] in [facility] Lymphocytes 4.1 K/UL 0.9-4.2 [facility] - [#/volume] in [facility] Blood [facility] Monocytes 0.8 K/UL 0.1-1.7 [facility] - [#/volume] in [facility] Eosinophils 0.2 K/UL 0.0-1.0 [facility] - [#/volume] in [facility] Basophils 0.0 K/UL [facility] - [#/volume] in [facility] Immature 0.0 K/UL [facility] - granulocytes Good [#/volume] in Zoroastrianism Blood by Hospital Automated count 1+ANISOCYTOSIS1+TARGET CELLS Platelet adequacy [Presence] in Blood by [facility] Light microscopy Differential cell count method - Blood [facility] ID Date Data Source [id number] 04/06/2019 07:39:14 AM EST [facility] Name Value Range Interpretation Description Data Sup porting Code Source(s) Document(s ) Urate 2.6 mg/dL 3.5-7.2 Below low normal [facility] - Good [Mass/volu Zoroastrianism me] in Hospital Serum or Plasma ID Date Data Source [id number] 04/06/2019 07:39:14 AM EST [facility] Name Value Range Interpretation Description Data Sup porting Code Source(s) Document(s ) Magnesium 2.2 mg/dL 1.6-2.6 [facility] - Good [Mass/volume] Zoroastrianism in Serum or Hospital Plasma ID Date Data Source [id number] 04/06/2019 07:39:14 AM EST [facility] Name Value Range Interpretation Description Data Sup porting Code Source(s) Document(s ) Sodium 140 136-145 [facility] - Good [Moles/volume] mmol/L Zoroastrianism in Serum or Hospital Plasma Potassium 4.6 3.5-5.1 [facility] - Good [Moles/volume] mmol/L Zoroastrianism in Serum or Hospital Plasma Chloride 98 98-107 [facility] - Good [Moles/volume] mmol/L Zoroastrianism in Serum or Hospital Plasma Carbon 37 21-32 Above high normal [facility] - Good dioxide, total mmol/L Zoroastrianism [Moles/volume] Hospital in Serum or Plasma Anion gap in 9 mmol/L 10-20 Below low normal [facility] - Go od Serum or Zoroastrianism Plasma Hospital Glucose 82 mg/dL 74-106 [facility] - Good [Mass/volume] Zoroastrianism in Serum or Hospital Plasma Urea nitrogen 17 mg/dL 7-18 [facility] - Good [Mass/volume] Zoroastrianism in Serum or Hospital Plasma Creatinine 0.52 0.70-1.3 Below low normal [facility] - Good [Mass/volume] mg/dL 0 Zoroastrianism in Serum or Hospital Plasma Glomerular >60 [facility] - Good filtration Zoroastrianism rate/1.73 sq M Hospital predicted among blacks [Volume Rate/Area] in Serum or Plasma by Creatinine-bas ed formula (MDRD) Glomerular >60 [facility] - Good filtration Zoroastrianism rate/1.73 sq M Hospital predicted among non-blacks [Volume Rate/Area] in Serum or Plasma by Creatinine-bas ed formula (MDRD) Calcium 10.6 8.5-10.1 Above high normal [facility] - Good [Mass/volume] mg/dL Zoroastrianism in Serum or Hospital Plasma Phosphate 2.8 2.5-4.9 [facility] - Good [Mass/volume] mg/dL Zoroastrianism in Serum or Hospital Plasma Albumin 2.5 g/dL 3.5-4.7 Below low normal [facility] - Good [Mass/volume] Zoroastrianism in Serum or Hospital Plasma by Bromocresol purple (BCP) dye binding method ID Date Data Source [id number] 04/06/2019 01:26:25 AM EST [facility] - Good [facility] Progressing slowly Name Value Range Interpretation Code Description Data Harriett rce(s) Supporting Document(s ) ID Date Data Source [id number] 04/06/2019 12:50:00 AM EST [facility] - G ood [facility] Name Value Range Interpretation Description Data Sup porting Code Source(s) Document(s ) Glucose 106 MG/DL 65-110 [facility] - Good [Mass/volume] Zoroastrianism in Blood by Hospital Automated test strip ID Date Data Source [id number] 04/05/2019 08:17:32 PM EST [facility] Good [facility] GI PROGRESS NOTENAME: Evelio Shukla hbeinDOB: 1950MRN: [id number]:Tolerating tube feeds through PEG/PEJ tube. Distal tip [...] hernia K44.9 COPD (chronic obstructive pulmonary disease) ([facility]) J44 .9 Acute respiratory distress R06.03 Pneumonia J18.9 COPD exacerbation ([facility]) J44.1 Sepsis due to undetermined organism ([facility]) A41.9 Generalized anxiety disorde r F41.1 Acute respiratory failure with hypoxia ([facility]) J96.01 Pneumonia involvin g right lung J18.9 Hyponatremia E87.1 SOB (shortness of breath) R06.02 Pressure i njury of right heel, stage 2 ([facility]) L89.612 Leg wound, right, initial encounter S81. 801A Acute hypoxemic respiratory failure ([facility]) J96.01Assessment: Feeding tube in correct location and functioning wellPlan: Continue feedings at 50 cc per hour.No f urther changes to tube as it isfunctioning well.Signed By: Nikos Martinez MD 04/05 8:12 PM Name Value Range Interpretation Code Description [facility] Supporting Document(s ) ID Date Data Source [id number] 04/05/2019 08:15:32 PM [facility] Bedside and Verbal shift change report g ankit to Beth Starr (oncoming nurse) Lakisha Mcdonald (offgoing nurse). Report included t he following information SBAR,Kardex and MAR. Name Value Range Interpretation Code Description Data [facility] Supporting Document(s ) ID Date Data Source [id number] 04/05/2019 04:26:46 PM [facility] Progress NoteMID-[facility] ,[facility].Krystian Monae MD., F.C.C.P.Stella Hamilton MD., F.C.C.P. 9W 1 [facility] [address] [place] [address] [place], [place] [id number] [phone]: Evelio Carlin Sex: male DOA: 03/25/2019D ate of : 1950 Age: 68 y.o. LOS: LOS: 11 daysSubjective:Mr. Guillermo buck is a 68 y.o. year old male who is being seen for ACUTEHYPERCAPNIC AND HYPO XIC RESPIRATORY FAILURE . HE IS FWEARING BIPAP NOW [id number] %.Mr. Carlin IS AWAKE ,MENTALLY RETARDED , [...] via emergency medical services sent in from intermediate for hypoxiaand possible pneumonia. The patient has multiple incidences of pneumonia in themtst. The patient is nonverbal at baseline and [...] 250 mg/5 mL (5 mL) soln oral ysvnerhv404 mg by Per G Tube route every [...] 24 hrs: BP Temp Pulse Resp SpO2 Qcwifb88 1550 113/63 97.6 F (36.4 C) 64 [...] GLUCPOC 118 (H) 03/16 11:33 [email or web address] Results Procedure Component Value Units Date/Time CULTURE, BLOOD [[id number]] Col lected: 03/25/19 0255 Order Status: Completed Specimen: Blood Updated: 620 Special Requests: NO SPECIAL REQUESTS Culture result: NO GROWTH 5 DA YS CULTURE, BLOOD [[id number]] Collected: 03/25/19 0310 Order Status: Completed S [...] sheath in situ. Through the sheatha 5 Emirati double-lumen 20 cm midl ine catheter was placed. The peel-away sheathwas removed. The catheter was sewn into position using 2-0 silk sutures. Thepatient tolerated the procedure. Ther e were no complications at the time of theprocedure. FINDINGS: Ultrasound inter rogation revealed a widely patent brachialvein above the antecubital fossa . A 5 Emirati dual-lumen 20 cm midline catheterwas placed. The tip was placed i n good position over the right axillary vein.IMPRESSION: 5 Emirati dual-lumen mid line catheter placed with tip [...] Supporting Document(s ) ID Date Data Source [id number] 04/05/2019 05:01:52 PM EST [facility] Name Value Range Interpretation Description Data Sup porting Code Source(s) Document(s ) Glucose 114 MG/DL 65-110 Above high normal [facility] [Mass/volume] Zoroastrianism in Blood by Hospital Automated test strip ID Date Data Source [id number] 04/05/2019 03:32:51 PM EST [facility] - Good [facility] Progress NoteEmanuel Pitenuktz61 y.o.Adm it Date: 03/25/2019Active Problems: Acute hypoxemic [...] 065 9 04/05/19 0700 - 04/06/19 0659Shift [id number] 0280-4504 24 Hour Total 0700-1 859 7805-1346 24 Hour TotalINTAKENG/GT 90 90 0 0 [...] injection 20 mg 20 mg Int raVENous [id number] helms MD 20 mg at 04/05/19 1010 [...] Supporting Document(s ) ID Date Data Source [id number] 04/05/2019 03:20:39 PM [facility] Problem: Falls - Risk ofGoal: *Absence [...] Supporting Document(s ) ID Date Data Source [id number] 04/05/2019 12:55:03 PM [facility] Progress NotePatient: Evelio Carlin Sex: male DOA: 03/25/2019Date of : 1950 Age: 68 y.o. :[id number]:Reyes Carlin is 68 y.o. male who is [...] Contractures and Generalized muscle weakness.As per the [facility] transfer record, the patient was transferred to the EDfor Hypoxia, he was found with O2 SAT 77 % on O2 NC 4 LPM and tachypneic. Hewas later placed on NRBM. Patient has a clogged jtube and the intermediate hasbeen using the gtube site for fe edings and administration of medications.Pt was seen at [facility] by Dr Motley, gi and jocelyn ns were for jtube placement, that wasscheduled on the same day as this [facility] pital admission.The patient is nonverbal and [...] FIO2 in the last 72 hours.CULTURE, BLOOD [[id number]] (Order [id number])MicrobiologyDate: 03/25/2019 Department: [facility] 3[facility] Med Surg Released [...] sheath in situ. Through the sheatha 5 Emirati double-lumen 20 cm midl ine catheter was placed. The peel-away sheathwas removed. The catheter was sewn into position using 2-0 silk sutures. Thepatient tolerated the procedure. Ther e were no complications at the time of theprocedure. FINDINGS: Ultrasound inter rogation revealed a widely patent brachialvein above the antecubital fossa . A 5 Emirati dual-lumen 20 cm midline catheterwas placed. The tip was placed i n good position over the right axillary vein.IMPRESSION: 5 Emirati dual-lumen mid line catheter placed with tip [...] Supporting Document(s ) ID Date Data Source [id number] 04/05/2019 12:44:47 PM EST [facility] XR ABD (KUB)CLINICAL INDICATION PROVIDED :. [...] Supporting Document(s ) ID Date Data Source [id number] 04/05/2019 12:06:06 PM EST [facility] Name Value Range Interpretation Description Data Sup porting Code Source(s) Document(s ) Glucose 114 MG/DL 65-110 Above high normal [facility] [Mass/volume] Zoroastrianism in Blood by Hospital Automated test strip ID Date Data Source [id number] 04/05/2019 10:27:44 AM EST [facility] ID Progress Note04/05/2019Subjective:Pat ient with history of MR,COPD,recurrent aspiration pneumonia,dysphagia s/p pegpl acement was transferred from the intermediate for respiratory distress,lowoxygen satur ation of 77% on 4 L nasal canula.Patient is non verbal,more awake today butunable to provide any historyAwake non verbal,unale to provide history,for midline insertionS/p PICC, afebrile, WBC WNL, on BIPAPNO events overnightBlood culture no growth.Afebril eAwaiting Surgical J tube placement as current on with leak and crack in theinl et portObjective:Review of SystemsUnable to provide.Vitals:Patient Vitals for the mt st 24 hrs: BP Temp Pulse Resp SpO2 Vrwelo61/22/19 1005 125/72 - - - - -03/16 [...] lizer suspension 500 mcg NebulizationBID RTLabs:Recent Labs 27899 630WBC 9.1 9.6 12.0*HGB 12.5* 12.5* 12.4*PLT [...] Name Value Range Interpretation Code Description Data [facility](s) Supporting Document(s ) ID Date Data Source [id number] 04/05/2019 07:46:04 AM [facility] Bedside and Verbal shift change report carol ankit to NANCY Cornell (oncoming nurse) Jhon Aviles RN (offgoing nurse). Report in cluded the followinginformation SBAR, Kardex, Intake/Output, MAR and Recent Results. Name Value Range Interpretation Code Description Data [facility](s) Supporting Document(s ) ID Date Data Source [id number] 04/05/2019 07:31:26 AM [facility] Progress NotePatient: Evelio Carlin Sex: male DOA: 03/25/2019Date of : 1950 Age: 68 y.o. :[id number]:Reyes Carlin is 68 y.o. male . with [...] Contractures and Generalized muscle weakness.As per the [facility] transfer record, the patient was transferred to the EDfor Hypoxia, he was found with O2 SAT 77 % on O2 NC 4 LPM and tachypneic. Hewas later placed on NRBM. Patient has a clogged jtube and the intermediate hasbeen using the gtube site for fe edings and administration of medications.Pt was seen at [facility] by fatemeh Shabazz and jocelyn ns were for jtube placement, that wasscheduled on the same day as this [facility] pital admission.The patient is nonverbal and [...] sheath in situ. Through the sheatha 5 Emirati double-lumen 20 cm midl ine catheter was placed. The peel-away sheathwas removed. The catheter was sewn into position using 2-0 silk sutures. Thepatient tolerated the procedure. Ther e were no complications at the time of theprocedure. FINDINGS: Ultrasound inter rogation revealed a widely patent brachialvein above the antecubital fossa . A 5 Emirati dual-lumen 20 cm midline catheterwas placed. The tip was placed i n good position over the right axillary vein.IMPRESSION: 5 Emirati dual-lumen mid line catheter placed with tip [...] Supporting Document(s ) ID Date Data Source [id number] 04/05/2019 06:39:59 AM EST [facility] Name Value Range Interpretation Description Data Sup porting Code Source(s) Document(s ) Glucose 100 MG/DL 65-110 [facility] - Good [Mass/volume] Zoroastrianism in Blood by [facility] Automated test strip ID Date Data Source [id number] 04/05/2019 09:21:59 AM EST [facility] Name Value Range Interpretation Description Data Sup porting Code Source(s) Document(s ) Leukocytes 9.1 K/uL 4.8-10.6 [facility] - [#/volume] in Good Blood by Zoroastrianism Automated count [facility] Erythrocytes 4.02 4.70-6.0 Below low normal [facility] - [#/volume] in M/uL 0 Good Blood by [facility] Automated count Hospital Hemoglobin 12.5 14.0-18. Below low normal [facility] - [Mass/volume] in g/dL 0 [facility] Blood [facility] Hematocrit 38.7 % 42.0-52. Below low normal [facility] - [Volume 0 Good Fraction] of Zoroastrianism Blood by Hospital Automated count Erythrocyte mean 96.3 FL 81.0-94. Above high normal [facility] - corpuscular 0 Good volume [Entitic Zoroastrianism volume] by Hospital Automated count Erythrocyte mean 31.1 PG 27.0-35. [facility] - corpuscular 0 Good hemoglobin Zoroastrianism [Entitic mass] Hospital by Automated count Erythrocyte mean 32.3 30.7-37. [facility] - corpuscular g/dL 3 Good hemoglobin Zoroastrianism concentration Hospital [Mass/volume] by Automated count Erythrocyte 16.2 % 11.5-14. Above high normal [facility] - distribution 0 Good width [Ratio] by Zoroastrianism Automated count Hospital Platelets 335 K/uL 130-400 [facility] - [#/volume] in Good Blood by [facility] Automated count Hospital Platelet mean 9.6 FL 9.2-11.8 [facility] - volume [Entitic Good volume] in Blood Zoroastrianism by Automated Hospital count Nucleated 0.0 PER 0 [facility] - erythrocytes/100 100 WBC Good leukocytes Zoroastrianism [Ratio] in Blood Hospital Nucleated 0.00 0.0-0.01 [facility] - erythrocytes K/uL Good [#/volume] in [facility] Segmented 78 % 48.0-72. Above high normal [facility] - neutrophils/100 [address] [facility] Lymphocytes/100 17 % 18.0-40. Below low normal [facility] - leukocytes in 0 [facility] Blood [facility] Monocytes/100 3 % 2.0-12.0 [facility] - leukocytes in [facility] Blood [facility] Eosinophils/100 0 % 0.0-7.0 [facility] - leukocytes in [facility] Blood [facility] Basophils/100 0 % 0.0-3.0 [facility] - leukocytes in [facility] Blood [facility] Myelocytes/100 2 % 0 Above high normal [facility] - leukocytes in Good Blood by Manual Zoroastrianism count Hospital Immature 0 % [facility] - granulocytes/100 Good leukocytes in Zoroastrianism Blood by Hospital Automated count Segmented 7.3 K/UL 2.3-7.6 [facility] - neutrophils Good [#/volume] in [facility] Lymphocytes 1.5 K/UL 0.9-4.2 [facility] - [#/volume] in [facility] Monocytes 0.3 K/UL 0.1-1.7 [facility] - [#/volume] in [facility] Eosinophils 0.0 K/UL 0.0-1.0 [facility] - [#/volume] in [facility] Basophils 0.0 K/UL [facility] - [#/volume] in [facility] Immature 0.0 K/UL [facility] - granulocytes Good [#/volume] in Zoroastrianism Blood by Hospital Automated count Erythrocyte [facility] - morphology Good finding Zoroastrianism [Identifier] in Hospital Blood Platelet [facility] - adequacy Good [Presence] in Zoroastrianism Blood by [facility] microscopy Differential [facility] - cell count Good method - [facility] ID Date Data Source [id number] 04/05/2019 07:07:57 AM EST [facility] Name Value Range Interpretation Description Data Sup porting Code Source(s) Document(s ) Sodium 137 136-145 [facility] - Good [Moles/volume] mmol/L Zoroastrianism in Serum or Hospital Plasma Potassium 4.4 3.5-5.1 [facility] - Good [Moles/volume] mmol/L Zoroastrianism in Serum or Hospital Plasma Chloride 96 98-107 Below low normal [facility] - Good [Moles/volume] mmol/L Zoroastrianism in Serum or Hospital Plasma Carbon 36 21-32 Above high normal [facility] - Good dioxide, total mmol/L Zoroastrianism [Moles/volume] Hospital in Serum or Plasma Anion gap in 10 10-20 [facility] - Good Serum or mmol/L Zoroastrianism Plasma Hospital Glucose 126 74-106 Above high normal [facility] - Good [Mass/volume] mg/dL Zoroastrianism in Serum or Hospital Plasma Urea nitrogen 12 mg/dL 7-18 [facility] - Good [Mass/volume] Zoroastrianism in Serum or Hospital Plasma Creatinine 0.38 0.70-1.3 Below low normal [facility] - Good [Mass/volume] mg/dL 0 Zoroastrianism in Serum or Hospital Plasma Glomerular >60 [facility] - Good filtration Zoroastrianism rate/1.73 sq M Hospital predicted among blacks [Volume Rate/Area] in Serum or Plasma by Creatinine-bas ed formula (MDRD) Glomerular >60 [facility] - Good filtration Zoroastrianism rate/1.73 sq M Hospital predicted among non-blacks [Volume Rate/Area] in Serum or Plasma by Creatinine-bas ed formula (MDRD) Calcium 9.6 8.5-10.1 [facility] - Good [Mass/volume] mg/dL Zoroastrianism in Serum or Hospital Plasma Phosphate 3.3 2.5-4.9 [facility] - Good [Mass/volume] mg/dL Zoroastrianism in Serum or Hospital Plasma Albumin 2.3 g/dL 3.5-4.7 Below low normal [facility] - Good [Mass/volume] Zoroastrianism in Serum or Hospital Plasma by Bromocresol purple (BCP) dye binding method ID Date Data Source [id number] 04/05/2019 07:07:57 AM EST [facility] Name Value Range Interpretation Description Data Sup porting Code Source(s) Document(s ) Magnesium 2.1 mg/dL 1.6-2.6 [facility] - Good [Mass/volume] Zoroastrianism in Serum or Hospital Plasma ID Date Data Source [id number] 04/05/2019 05:22:59 AM EST [facility] Problem: Pressure Injury - Risk ofGoal: [...] Supporting Document(s ) ID Date Data Source [id number] 04/05/2019 12:00:16 AM [facility]ATR[facility] - [facility] Name Value Range Interpretation Description Data Sup porting Code Source(s) Document(s ) Glucose 118 MG/DL 65-110 Above high normal [facility] [Mass/volume] Zoroastrianism in Blood by Hospital Automated test strip ID Date Data Source [id number] 04/04/2019 08:02:30 PM [facility] Bedside and Verbal shift change report carol pham to Anastasiya PITTS (oncoming nurse) by Anirudh (offgoing nurse). Report included the fo llowing information SBAR, Kardex andMAR. Name Value Range Interpretation Code Description Data [facility] Supporting Document(s ) ID Date Data Source [id number] 04/04/2019 06:37:16 PM [facility] Progress NoteEvelio Vierachbein68 y.o.Adm it Date: 03/25/2019Active [...] 04/04/19 07 - 04/05/19 0659Shift 07- 1858 3649-0005 24 Hour Total 5774-0841 7926-9863 24 Hour TotalINTAKEI.V.(mL/kg/ hr) 600(1.1) 600(0.5) Volume [...] injection 20 mg 20 mg Int raVENous [id number] helms MD 20 mg at 04/04/19 0937 [...] Supporting Document(s ) ID Date Data Source [id number] 04/04/2019 06:33:30 PM EST [facility] GI PROGRESS NOTENAME: Evelio Shukla hbeinDOB: 1950MRN: [id number]:Patient is tolerating tube feeds. A KUB with [...] hernia K44.9 COPD (chronic obstructive pulmonary disease) ([facility]) J44 .9 Acute respiratory distress R06.03 Pneumonia J18.9 COPD exacerbation ([facility]) J44.1 Sepsis due to undetermined organism ([facility]) A41.9 Generalized anxiety disorde r F41.1 Acute respiratory failure with hypoxia ([facility]) J96.01 Pneumonia involvin g right lung J18.9 Hyponatremia E87.1 SOB (shortness of breath) R06.02 Pressure i njury of right heel, stage 2 ([facility]) L89.612 Leg wound, right, initial encounter S81. 801A Acute hypoxemic respiratory failure ([facility] [facility]) J96.01Assessment: Tube feeds tole rated through PEJPlan: Await results of KUB with contrastSigned By: Nikos Martinez MD 04/04/2019 6:22 PM Name Value Range Interpretation Code Description Data Harriett rce(s) Supporting Document(s ) ID Date Data Source [id number] 04/04/2019 06:16:29 PM EST [facility] Calls placed to Dr. amaya to see if pt needs contrast with KUB. Waiting forcal back. Will continue to monitor pt Name Value Range Interpretation Code Description Data Harriett rce(s) Supporting Document(s ) ID Date Data Source [id number] 04/04/2019 04:20:05 PM EST [facility] Name Value Range Interpretation Description Data Sup porting Code Source(s) Document(s ) Glucose 115 MG/DL 65-110 Above high normal [facility] [Mass/volume] [facility]astrianism in Blood by Hospital Automated test strip ID Date Data Source [id number] 04/04/2019 02:37:09 PM EST [facility] Progress NoteMID-[facility] ,P.C.Krystian Monae MD., F.C.C.P.Stella Hamilton MD., F.CGualbertoCGualbertoP. [address] [place] [address] [place] [address] [phone]: Evelio Carlin Sex: male DOA: [...] via emergency medical services sent in from intermediate for hypoxiaand possible pneumonia. The patient has multiple incidences of pneumonia in themtst. The patient is nonverbal at baseline and [...] 250 mg/5 mL (5 mL) soln oral [id number] mg by Per G Tube route every [...] 24 hrs: BP Temp Pulse Resp SpO2 Hlyobt10 1339 - - - - 96 % [...] Procedure Component Value Units Date/Time CULTURE, BLOOD [[id number]] Col lected: 03/25/195 Order Status: Completed Specimen: Blood Updated: 620 Special Requests: NO SPECIAL REQUESTS Culture result: NO GROWTH 5 DA YS CULTURE, BLOOD [[id number]] Collected: 03/25/19 0310 Order Status: Completed S [...] sheath in situ. Through the sheatha 5 Emirati double-lumen 20 cm midl ine catheter was placed. The peel-away sheathwas removed. The catheter was sewn into position using 2-0 silk sutures. Thepatient tolerated the procedure. Ther e were no complications at the time of theprocedure. FINDINGS: Ultrasound inter rogation revealed a widely patent brachialvein above the antecubital fossa . A 5 Emirati dual-lumen 20 cm midline catheterwas placed. The tip was placed i n good position over the right axillary vein.IMPRESSION: 5 Emirati dual-lumen mid line catheter placed with tip positioned overthe right axillary vein.Ct Chest Wo ContResult Date: 03/14/2019History: Respiratory difficulty. FINDINGS: CT sca nning of the chest wasperformed helically from lung apices to the upper abdomen wi thout intravenouscontrast dural. Sagittal and coronal reconstructed images are submitt ed.Scanning was performed utilizing dose lowering techniques and is [facility] of [facility]/15[facility]. Evaluation of thoracic vascular [...] Supporting Document(s ) ID Date Data Source [id number] 04/04/2019 02:30:38 PM [facility] Problem: Pressure Injury - Risk ofGoal: [...] Supporting Document(s ) ID Date Data Source [id number] 04/04/2019 02:28:37 PM [facility] Problem: Pressure Injury - Risk ofGoal: [...] Supporting Document(s ) ID Date Data Source [id number] 04/04/2019 11:45:30 AM EST [facility] Name Value Range Interpretation Description Data Sup porting Code Source(s) Document(s ) Glucose 110 MG/DL 65-110 [facility] [Mass/volume] [facility]oroastrianism in Blood by Hospital Automated test strip ID Date Data Source [id number] 04/04/2019 09:19:29 AM EST [facility] ID Progress Note04/04/2019Subjective:Betty ient with history of MR,COPD,recurrent aspiration pneumonia,dysphagia s/p pegpl acement was transferred from the intermediate for respiratory distress,lowoxygen satur ation of 77% on 4 L nasal canula.Patient is non verbal,more awake today butunable to provide any historyAwake non verbal,unale to provide history,for midline insertionS/p PICC, afebrile, WBC WNLNO events overnightBlood culture no growth.Afebril eAwaiting Surgical J tube placement as current on with leak and crack in theinl et portObjective:Review of SystemsUnable to provide.Vitals:Patient Vitals for the mt st 24 hrs: BP Temp Pulse Resp SpO2 Pcjmfv55/21/19 0800 101/40 97 F (36.1 C) (!) [...] and vancomy dominick x 2 more daysMahlet Henri, MDDecember AM Name Value Range Interpretation Code Description Data Harriett rce(s) Supporting Document(s ) ID Date Data Source [id number] 04/04/2019 07:44:12 AM EST [facility] Bedside and Verbal shift change report carol ivten to aneta RN (oncoming nurse) by NANCY Steel(offgoing nurse). Report carol pham with SBAR, Kardex, Intake/Output, MAR and RecentResults. Name Value Range Interpretation Code Description Data Harriett rce(s) Supporting Document(s ) ID Date Data Source [id number] 04/04/2019 11:14:13 AM EST [facility] Name Value Range Interpretation Description Data Sup porting Code Source(s) Document(s ) Leukocytes 9.6 K/uL 4.8-10.6 [facility] - [#/volume] in Good Blood by [facility] Erythrocytes 4.02 4.70-6.0 Below low normal [facility] - [#/volume] in M/uL 0 Good Blood by [facility] Hemoglobin 12.5 14.0-18. Below low normal [facility] - [Mass/volume] in g/dL 0 Good Blood [facility] Hematocrit 39.0 % 42.0-52. Below low normal [facility] - [Volume 0 Good Fraction] of [facility]oroastrianism Blood by Hospital Automated count Erythrocyte mean 97.0 FL 81.0-94. Above high normal [facility] - corpuscular 0 Good volume [Entitic Zoroastrianism volume] by Hospital Automated count Erythrocyte mean 31.1 PG 27.0-35. [facility] - corpuscular 0 Good hemoglobin [facility]ism [Entitic mass] [facility] by Automated count Erythrocyte mean 32.1 30.7-37. [facility] - corpuscular g/dL 3 Good hemoglobin Zoroastrianism concentration [facility] [Mass/volume] by Automated count Erythrocyte 16.4 % 11.5-14. Above high normal [facility] - distribution 0 Good width [Ratio] by [facility] count [facility] Platelets 237 K/uL 130-400 [facility] - [#/volume] in Good Blood by [facility] Platelet mean 10.9 FL 9.2-11.8 [facility] - volume [Entitic Good volume] in Blood [facility] by Automated Hospital count Nucleated 0.0 PER 0 [facility] - erythrocytes/100 100 WBC Good leukocytes [facility]astrianism [Ratio] in Blood Hospital Nucleated 0.00 0.0-0.01 [facility] - erythrocytes K/uL Good [#/volume] in [facility] Segmented 86 % 48.0-72. Above high normal [facility] - neutrophils/100 [address] Good [address] [facility] Lymphocytes/100 8 % 18.0-40. Below low normal [facility] - leukocytes in 0 [facility] Monocytes/100 3 % 2.0-12.0 [facility] - leukocytes in [facility] Eosinophils/100 0 % 0.0-7.0 [facility] - leukocytes in [facility] Basophils/100 0 % 0.0-3.0 [facility] - leukocytes in [facility] Metamyelocytes/1 1 % 0 Above high normal [facility] - 00 leukocytes in [facility] Blood by Manual [facility]ism count Hospital Myelocytes/100 2 % 0 Above high normal [facility] - leukocytes in [facility] Blood by [facility] count Hospital Immature 0 % [facility] - granulocytes/100 Good leukocytes in [facility]astrianism Blood by Hospital Automated count Segmented 8.5 K/UL 2.3-7.6 Above high normal [facility] - neutrophils Good [#/volume] in [facility] Lymphocytes 0.8 K/UL 0.9-4.2 Below low normal [facility] - [#/volume] in [facility] Monocytes 0.3 K/UL 0.1-1.7 [facility] - [#/volume] in [facility] Eosinophils 0.0 K/UL 0.0-1.0 [facility] - [#/volume] in [facility] Basophils 0.0 K/UL [facility] - [#/volume] in [facility] Immature 0.0 K/UL [facility] - granulocytes Good [#/volume] in [facility]rianism Blood by Hospital Automated count Erythrocyte [facility] - morphology Good finding [facility]ism [Identifier] in Hospital Blood Platelet [facility] - adequacy Good [Presence] in [facility] Blood by Light Hospital microscopy Differential [facility] - cell count Good method - Blood [facility] ID Date Data Source [id number] 04/04/2019 07:51:52 AM EST [facility] Name Value Range Interpretation Description Data Sup porting Code Source(s) Document(s ) Sodium 133 136-145 Below low normal [facility] [Moles/volume] mmol/L [facility]ism in Serum or Hospital Plasma Potassium 4.6 3.5-5.1 [facility] [Moles/volume] mmol/L [facility]ism in Serum or Hospital Plasma Chloride 93 98-107 Below low normal [facility] [Moles/volume] mmol/L [facility] in Serum or Hospital Plasma Carbon 38 21-32 Above high normal [facility] - Good dioxide, total mmol/L [facility] [Moles/volume] Hospital in Serum or Plasma Anion gap in 7 mmol/L 10-20 Below low normal [facility] - Go od Serum or [facility] Plasma Hospital Glucose 97 mg/dL 74-106 [facility] - [facility] [Mass/volume] [facility]astrianism in Serum or Hospital Plasma Urea nitrogen 10 mg/dL 7-18 [facility] - [facility] [Mass/volume] [facility]astrianism in Serum or Hospital Plasma Creatinine 0.39 0.70-1.3 Below low normal [facility] - [facility] [Mass/volume] mg/dL 0 [facility]rianism in Serum or Hospital Plasma Glomerular >60 [facility] - Good filtration Z[facility]astrianism rate/1.73 sq M Hospital predicted among blacks [Volume Rate/Area] in Serum or Plasma by Creatinine-bas ed formula (MDRD) Glomerular >60 [facility] - [facility] filtration [facility]rianism rate/1.73 sq M Hospital predicted among non-blacks [Volume Rate/Area] in Serum or Plasma by Creatinine-bas ed formula (MDRD) Calcium 10.0 8.5-10.1 [facility] - [facility] [Mass/volume] mg/dL [facility]rianism in Serum or Hospital Plasma Phosphate 2.8 2.5-4.9 [facility] - [facility] [Mass/volume] mg/dL [facility]rianism in Serum or Hospital Plasma Albumin 2.3 g/dL 3.5-4.7 Below low normal [facility] [Mass/volume] [facility]astrianism in Serum or Hospital Plasma by Bromocresol purple (BCP) dye binding method ID Date Data Source [id number] 04/04/2019 07:51:52 AM EST [facility] Name Value Range Interpretation Description Data Sup porting Code Source(s) Document(s ) Magnesium 1.9 mg/dL 1.6-2.6 [facility] [Mass/volume] Zoroastrianism in Serum or Hospital Plasma ID Date Data Source [id number] 04/04/2019 06:40:15 AM EST [facility] Name Value Range Interpretation Description Data Sup porting Code Source(s) Document(s ) Glucose 95 MG/DL 65-110 [facility] [Mass/volume] Zoroastrianism in Blood by Hospital Automated test strip ID Date Data Source [id number] 04/04/2019 05:57:06 AM EST [facility] Progress NotePatient: Evelio Carlin Sex: male DOA: 03/25/2019Date of : 1950 Age: 68 y.o. :[id number]:Reyes Carlin is 68 y.o. male with vm [...] and [facility] santiago [...] a nd Generalized muscle weakness.As per the intermediate transfer record, the patien t was transferred to the EDfor Hypoxia, he was found with O2 SAT 77 % on O2 NC 4 L PM and tachypneic. Hewas later placed on NRBM. Patient has a clogged jtube and t he intermediate hasbeen using the gtube site for feedings and administration of medic ations.Pt was seen at [facility] by fatemeh Shabazz and plans were for [...] 7.50*PCO 2 48PO2 76*HCO3 37*FIO2 40.0CULTURE, BLOOD [[id number]] (Order [id number])MicrobiologyD ate: 03/25/2019 Department: [facility] Med Surg Released By/Authorizing:Daniela Neumann MD (auto-released)Specimen Information: Blood Component Value Flag Ref Range Units StatusSpecial Requests: FinalNO SPECIAL REQUESTSCulture result: NO GROWTH 5 DAYSCULTURE, BLOOD [[id number]] (Order [id number])MicrobiologyDate: 03/25 Department: [facility] Med Surg Released By/Authorizing:Jessie Neumann MD [...] sheath in situ. Through the sheatha 5 Emirati double-lumen 20 cm midl ine catheter was placed. The peel-away sheathwas removed. The catheter was sewn into position using 2-0 silk sutures. Thepatient tolerated the procedure. Ther e were no complications at the time of theprocedure. FINDINGS: Ultrasound inter rogation revealed a widely patent brachialvein above the antecubital fossa . A 5 Emirati dual-lumen 20 cm midline catheterwas placed. The tip was placed i n good position over the right axillary vein.IMPRESSION: 5 Emirati dual-lumen mid line catheter placed with tip [...] Supporting Document(s ) ID Date Data Source [id number] 04/04/2019 12:36:47 AM EST [facility] Name Value Range Interpretation Description Data Sup porting Code Source(s) Document(s ) Glucose 113 MG/DL 65-110 Above high normal [facility] [Mass/volume] Zoroastrianism in Blood by Hospital Automated test strip ID Date Data Source [id number] 04/03/2019 08:49:11 PM EST [facility] Problem: Pressure Injury - Risk ofGoal: [...] free of injury during seizure activityOutcome: Progressing [place] ar[place] GoalGoal: *STG: Remains safe in hospitalOutcome: [...] Name Value Range Interpretation Code Description Data [facility](s) Supporting Document(s ) ID Date Data Source [id number] 04/03/2019 07:30:34 PM [facility] Bedside and Verbal shift change report carol Ochoa RN (oncoming nurse) Kvng Carpio RN (offgoing nurse). Report included the followinginformation SBAR, Kardex, MAR, Recent Results, Med Rec Sta tus and Cardiac RhythmNSR. Name Value Range Interpretation Code Description Data [facility] rce(s) Supporting Document(s ) ID Date Data Source [id number] 04/03/2019 06:44:54 PM [facility] Progress NoteMIDSTATE [facility] ,P.C.[facility]'S Psychiatric Centerjose Monae MD., F.C.C.P.Stella Hamilton MD., F.C.C.P. [address] [place] [id number] [place] [address] [phone]: Evelio Carlin Sex: male [...] emergency medica l services sent in from intermediate for hypoxiaand possible pneumonia. The patie nt has multiple incidences of pneumonia in thepast. The [facility] and cannot provide any history ofreview of [...] 250 mg/5 mL (5 mL) soln oral [id number] mg by Per G Tube route every [...] 24 hrs: BP Temp Pulse Resp SpO2 Cmxtnq36 1559 98/66 97.1 F (36.2 C) 74 [...] Procedure Component Value Units Date/Time CULTURE, BLOOD [[id number]] Col lected: 03/25/19254 Order Status: Completed Specimen: Blood Updated: 620 Special Requests: NO SPECIAL REQUESTS Culture result: NO GROWTH 5 DA YS CULTURE, BLOOD [[id number]] Collected: 03/25/19309 Order Status: Completed S pecimen: [...] sheath in situ. Through the sheatha 5 Emirati double-lumen 20 cm midl ine catheter was placed. The peel-away sheathwas removed. The catheter was sewn into position using 2-0 silk sutures. Thepatient tolerated the procedure. Ther e were no complications at the time of theprocedure. FINDINGS: Ultrasound inter rogation revealed a widely patent brachialvein above the antecubital fossa . A 5 Emirati dual-lumen 20 cm midline catheterwas placed. The tip was placed i n good position over the right axillary vein.IMPRESSION: 5 Emirati dual-lumen mid line catheter placed with tip [...] Supporting Document(s ) ID Date Data Source [id number] 04/03/2019 04:24:41 PM EST [facility] Name Value Range Interpretation Description Data Sup porting Code Source(s) Document(s ) Glucose 88 MG/DL 65-110 [facility] [Mass/volume] Zoroastrianism in Blood by Hospital Automated test strip ID Date Data Source [id number] 04/03/2019 01:39:14 PM EST [facility] Problem: Nutrition DeficitGoal: *Tolerat ing enteral [...] Supporting Document(s ) ID Date Data Source [id number] 04/03/2019 01:37:19 PM EST [facility] NUTRITIONFollow Up NoteSubjective: J tub e [...] Supporting Document(s ) ID Date Data Source [id number] 04/03/2019 12:30:01 PM EST [facility] Name Value Range Interpretation Description Data Sup porting Code Source(s) Document(s ) Glucose 92 MG/DL 65-110 [facility] [Mass/volume] Zoroastrianism in Blood by Hospital Automated test strip ID Date Data Source [id number] 04/03/2019 11:50:21 AM EST [facility] GI PROGRESS NOTENAME: Evelio Johnson inDOB: 1950MRN: [id number]:KUB yesterday showed J tube kinking in 2 [...] -550 mlPHYSICAL EXAM:General: Alert, in no ac [place] distressHEENT: Anicteric sclerae.Abdomen: Soft, Non distended, Non tender.Lab Data Reviewed:Recent Labs 04/02/1905WBC 12.0* 11.9*HGB 12.4* 12. 7*HCT 38.1* 39.9*PLT 289 279Recent Labs 04/02/1905NA 137 136K 4.2 4.2CL 96* 95*CO2 36* 35*BUN 12 15CREA 0.46* 0.46*GLU 129* 114*PHOS 1.8* 2.4*CA 10.2* 10.5*Recent Labs 04/02/19059ALB 2.3* 2.3* Pati ent Active Problem ListDiagnosis Code Parae sophageal hiatal hernia K44.9 COPD (chronic obstructive pulmonary disease) ([facility]) J44 .9 Acute respiratory distress R06.03 Pneumonia J18.9 COPD exacerbation ([facility]) J44.1 Sepsis due to undetermined organism ([facility]) A41.9 Generalized anxiety disorde r F41.1 Acute respiratory failure with hypoxia ([facility]) J96.01 Pneumonia involvin g right lung J18.9 Hyponatremia E87.1 SOB (shortness of breath) R06.02 Pressure i njury of right heel, stage 2 ([facility]) L89.612 Leg wound, right, initial encounter S81. 801A Acute hypoxemic respiratory failure ([facility]) J96.01Assessment: Malfunctioning J tube - multiple attempts to replace. Now replaced, but kinkedPlan: Will obtain K UB to check if kinks resolved and if J tube remains in positionSigned By: Marly vaughan MD 04/03/2019 11:47 AM Name Value Range Interpretation Code Description Data Harriett rce(s) Supporting Document(s ) ID Date Data Source [id number] 04/03/2019 11:00:44 AM [facility] Progress NoteEmanuel Nfrhjokfs58 y.o.Adm it Date: 03/25/2019Active Problems: Acute hypoxemic [...] 04/03/19 0659 04/03/19 07 - 04/04/19 0659Shift 0288-6435 4637-7786 24 Hour Total 0700-1 859 1180-4613 24 Hour TotalINTAKEShift Total(mL/kg)OUTPUTUrine(mL/kg/hr) 250(0. 4) 550(1) 800(0.7) Urine Voided 250 550 800Shift Total(mL/kg) 250(4.8) 550(11.6) 800(16.9)NET -250 -550 -800Weight (kg) 51.8 47.4 47.4 47.4 47.4 47.4Medications Revi ewed:Current Facility-Administered MedicationsMedication Dose Route Frequen cy Provider Last Rate Last Dose methylPREDNISolone (PF) (SOLU-MEDROL) in jection 20 mg 20 mg IntraVENous T35UAirsauKrystian helms MD 20 mg at 04/03/19 1028 [...] DAILY Reinier Mili, DO 30 mL at 04/03/19 1059 [...] Ns at 50 ml/mMinimal free waterRep lace [id number] in [facility], MDDecember 2018 Name Value Range Interpretation Code Description Data Harriett rce(s) Supporting Document(s ) ID Date Data Source [id number] 04/03/2019 10:32:50 AM EST [facility] ID Progress Note04/03/2019Subjective:Pat ient with history of MR,COPD,recurrent aspiration pneumonia,dysphagia s/p pegpl acement was transferred from the intermediate for respiratory distress,lowoxygen satur ation of 77% [...] 24 hrs: BP Temp Pulse Resp SpO2 Ouigok00/20/19 0837 - - - - 100 % [...] lizer suspension 500 mcg NebulizationBID RTLabs:Recent Labs 46885 600WBC 12.0* 11.9* 22.1*HGB 12.4* 12.7* 13.1*PLT [...] Name Value Range Interpretation Code Description Data [facility] Supporting Document(s ) ID Date Data Source [id number] 04/03/2019 08:02:08 AM [facility] Bedside and Verbal shift change report g iven to andres RN (oncoming nurse) Yves Bonilla RN(offgoing nurse). Report given with SBAR, Kardex, Intake/Output, MAR and RecentResults. Name Value Range Interpretation Code Description Data [facility](s) Supporting Document(s ) ID Date Data Source [id number] 04/10/2019 08:05:33 PM [facility] Name Value Range Interpretation Description Data Sup porting Code Source(s) Document(s ) Parathyrin [facility] [Moles/volume] [facility] in Serum or Plasma (NOTE)Reference Range:All Ages: <2.0The PTHrP assay should not be used to exclude cancer orscreen tumor patients for humor al hypercalcemia ofmalignancy (HHM). The results should always be assessed inconj unction with the patient's medical history, clinicalexamination, and other findings. If test results areclinically discordant, please contact the laboratory.Performed At: [facility] [id number] [place], [place] [id number] Puente MD Ph:[phone] ID Date Data Source [id number] 04/03/2019 07:42:12 AM EST [facility] Name Value Range Interpretation Description Data Sup porting Code Source(s) Document(s ) Leukocytes 12.0 4.8-10.6 Above high normal [facility] - [#/volume] in K/uL [facility] Blood by [facility] Automated count Hospital Erythrocytes 3.97 4.70-6.0 Below low normal [facility] - [#/volume] in M/uL 0 Good Blood by [facility] Automated count [facility] Hemoglobin 12.4 14.0-18. Below low normal [facility] - [Mass/volume] in g/dL 0 [facility] Blood [facility] Hematocrit 38.1 % 42.0-52. Below low normal [facility] - [Volume 0 Good Fraction] of [facility]ism Blood by Hospital Automated count Erythrocyte mean 96.0 FL 81.0-94. Above high normal [facility] - corpuscular 0 Good volume [Entitic [facility]ism volume] by Hospital Automated count Erythrocyte mean 31.2 PG 27.0-35. [facility] - corpuscular 0 Good hemoglobin [facility] [Entitic mass] Hospital by Automated count Erythrocyte mean 32.5 30.7-37. [facility] - corpuscular g/dL 3 Good hemoglobin [facility]astrianism concentration [facility] [Mass/volume] by Automated count Erythrocyte 16.2 % 11.5-14. Above high normal [facility] - distribution 0 Good width [Ratio] by [facility] Automated count Hospital Platelets 289 K/uL 130-400 [facility] - [#/volume] in Good Blood by [facility] Automated count [facility] Platelet mean 9.7 FL 9.2-11.8 [facility] - volume [Entitic Good volume] in Blood [facility] by Automated Hospital count Nucleated 0.0 PER 0 [facility] - erythrocytes/100 100 WBC Good leukocytes [facility] [Ratio] in Blood Hospital Nucleated 0.00 0.0-0.01 [facility] - erythrocytes K/uL Good [#/volume] in [facility] Segmented 79 % 48.0-72. Above high normal [facility] - neutrophils/100 0 [facility] leukocytes in [facility] Lymphocytes/100 14 % 18.0-40. Below low normal [facility] - leukocytes in 0 [facility] Monocytes/100 5 % 2.0-12.0 [facility] - leukocytes in [facility] Eosinophils/100 0 % 0.0-7.0 [facility] - leukocytes in [facility] Basophils/100 0 % 0.0-3.0 [facility] - leukocytes in [facility] Immature 2 % 0-0.5 Above high normal [facility] - granulocytes/100 [facility] leukocytes in [facility] by Hospital Automated count Segmented 9.4 K/UL 2.3-7.6 Above high normal [facility] - neutrophils Good [#/volume] in [facility] Lymphocytes 1.6 K/UL 0.9-4.2 [facility] - [#/volume] in [facility] Monocytes 0.7 K/UL 0.1-1.7 [facility] - [#/volume] in [facility] Eosinophils 0.0 K/UL 0.0-1.0 [facility] - [#/volume] in [facility] Basophils 0.0 K/UL 0.0-0.4 [facility] - [#/volume] in [facility] Immature 0.3 K/UL 0.0-0.17 Above high normal [facility] - granulocytes Good [#/volume] in [facility] by Hospital Automated count Differential [facility] - cell count [facility] ID Date Data Source [id number] 04/03/2019 07:31:11 AM EST [facility] Name Value Range Interpretation Description Data Sup porting Code Source(s) Document(s ) Sodium 137 136-145 [facility] - [facility] [Moles/volume] mmol/L [facility] in Serum or Hospital Plasma Potassium 4.2 3.5-5.1 [facility] - [facility] [Moles/volume] mmol/L [facility] in Serum or Hospital Plasma Chloride 96 98-107 Below low normal [facility] [Moles/volume] mmol/L Zoroastrianism in Serum or Hospital Plasma Carbon 36 21-32 Above high normal [facility] - [facility] dioxide, total mmol/L Zoroastrianism [Moles/volume] Hospital in Serum or Plasma Anion gap in 8 mmol/L 10-20 Below low normal [facility] - Go od Serum or Zoroastrianism Plasma Hospital Glucose 129 74-106 Above high normal [facility] [Mass/volume] mg/dL Zoroastrianism in Serum or Hospital Plasma Urea nitrogen 12 mg/dL 7-18 [facility] [Mass/volume] Zoroastrianism in Serum or Hospital Plasma Creatinine 0.46 0.70-1.3 Below low normal [facility] [Mass/volume] mg/dL 0 Zoroastrianism in Serum or Hospital Plasma Glomerular >60 [facility] - Good filtration Zoroastrianism rate/1.73 sq M Hospital predicted among blacks [Volume Rate/Area] in Serum or Plasma by Creatinine-bas ed formula (MDRD) Glomerular >60 [facility] - Good filtration Zoroastrianism rate/1.73 sq M Hospital predicted among non-blacks [Volume Rate/Area] in Serum or Plasma by Creatinine-bas ed formula (MDRD) Calcium 10.2 8.5-10.1 Above high normal [facility] [Mass/volume] mg/dL Zoroastrianism in Serum or Hospital Plasma Phosphate 1.8 2.5-4.9 Below low normal [facility] [Mass/volume] mg/dL Zoroastrianism in Serum or Hospital Plasma Albumin 2.3 g/dL 3.5-4.7 Below low normal [facility] [Mass/volume] Zoroastrianism in Serum or Hospital Plasma by Bromocresol purple (BCP) dye binding method ID Date Data Source [id number] 04/03/2019 07:31:11 AM EST [facility] Name Value Range Interpretation Description Data Sup porting Code Source(s) Document(s ) Magnesium 2.2 mg/dL 1.6-2.6 [facility] [Mass/volume] Zoroastrianism in Serum or Hospital Plasma ID Date Data Source [id number] 04/03/2019 06:27:34 AM EST [facility] o[facility] Value Range Interpretation Description Data Sup porting Code Source(s) Document(s ) Glucose 158 MG/DL 65-110 Above high normal [facility] [Mass/volume] Zoroastrianism in Blood by [facility] Automated test strip ID Date Data Source [id number] 04/03/2019 06:10:20 AM [facility] Check the patient with RN Chad Mazariegos or any skin breakdown while using theBiPAP mask. RN aware of two finger tech to mas k tightness,and use of mask clipsfor any interventions Name Value Range Interpretation Code Description Data Harriett rce(s) Supporting Document(s ) ID Date Data Source [id number] 04/03/2019 12:12:08 AM PS[facility]CHIATRICS - G ood [facility] Name Value Range Interpretation Description Data Sup porting Code Source(s) Document(s ) Glucose 95 MG/DL 65-110 [facility] [Mass/volume] Zoroastrianism in Blood by [facility] Automated test strip ID Date Data Source [id number] 04/02/2019 11:54:22 PM [facility] Problem: Pressure Injury - Risk ofGoal: [...] Supporting Document(s ) ID Date Data Source [id number] 04/02/2019 07:58:14 PM EST [facility] ID Progress Note04/02/2019Subjective:Pat ient with history of MR,COPD,recurrent aspiration pneumonia,dysphagia s/p pegpl acement was transferred from the intermediate for respiratory distress,lowoxygen satur ation of 77% [...] hrs: BP Temp Puls e Resp SpO2 Eoachq73/19/19 1311 118/66 98 F (36.7 C) (!) [...] Supporting Document(s ) ID Date Data Source [id number] 04/02/2019 04:41:21 PM EST [facility] Name Value Range Interpretation Description Data Sup porting Code Source(s) Document(s ) Glucose 150 MG/DL 65-110 Above high normal [facility] - [facility] [Mass/volume] Zoroastrianism in Blood by Hospital Automated test strip ID Date Data Source [id number] 04/02/2019 03:41:37 PM EST [facility] KUB 2 view(s)History: Evaluate J-tube.C omparison: [...] Supporting Document(s ) ID Date Data Source [id number] 04/02/2019 02:28:24 PM [facility] Progress NotePatient: Evelio Carlin Sex: male DOA: 03/25/2019Date of : 1950 Age: 68 y.o. :[id number]:Reyes Carlin is 68 y.o. male with vm [...] Contractures and Generalized muscle weakness.As per the [facility] transfer record, the patient was transferred to the EDfor Hypoxia, he was found with O2 SAT 77 % on O2 NC 4 LPM and tachypneic. Hewas later placed on NRBM. Patient has a clogged jtube and the intermediate hasbeen using the gtube site for fe edings and administration of medications.Pt was seen at [facility] by fatemeh Shabazz and jocelyn ns were [...] sheath in situ. Through the sheatha 5 Emirati double-lumen 20 cm midl ine catheter was placed. The peel-away sheathwas removed. The catheter was sewn into position using 2-0 silk sutures. Thepatient tolerated the procedure. Ther e were no complications at the time of theprocedure. FINDINGS: Ultrasound inter rogation revealed a widely patent brachialvein above the antecubital fossa . A 5 Emirati dual-lumen 20 cm midline catheterwas placed. The tip was placed i n good position over the right axillary vein.IMPRESSION: 5 Emirati dual-lumen mid line catheter placed with tip [...] Supporting Document(s ) ID Date Data Source [id number] 04/02/2019 02:27:44 PM EST [facility] ID Progress Note04/01/2019Subjective:Betty ient with history of MR,COPD,recurrent aspiration pneumonia,dysphagia s/p pegpl acement was transferred from the intermediate for respiratory distress,lowoxygen satur ation of 77% [...] hrs: BP Temp Puls e Resp SpO2 Rueutl43/18/19 0804 150/64 97.8 F (36.6 C) 92 [...] Supporting Document(s ) ID Date Data Source [id number] 04/02/2019 01:45:52 PM EST [facility] GI PROGRESS NOTENAME: Evelio Shukla hbeinDOB: 1950MRN: [id number]:Placed J tube over PEG yest and flushed [...] hernia K44.9 COPD (chronic obstructive pulmonary disease) ([facility]) J44 .9 Acute respiratory distress R06.03 Pneumonia J18.9 COPD exacerbation ([facility]) J44.1 Sepsis due to undetermined organism ([facility]) A41.9 Generalized anxiety disorde r F41.1 Acute respiratory failure with hypoxia ([facility]) J96.01 Pneumonia involvin g right lung J18.9 Hyponatremia E87.1 SOB (shortness of breath) R06.02 Pressure i njury of right heel, stage 2 ([facility]) L89.612 Leg wound, right, initial encounter S81. 801A Acute hypoxemic respiratory failure ([facility]) J96.01Assessment: Recurrently mal functioning J-tube over [...] Supporting Document(s ) ID Date Data Source [id number] 04/02/2019 01:03:42 PM EST [facility] Name Value Range Interpretation Description Data Sup porting Code Source(s) Document(s ) Glucose 154 MG/DL 65-110 Above high normal [facility] - [facility] [Mass/volume] Zoroastrianism in Blood by Hospital Automated test strip ID Date Data Source [id number] 04/02/2019 11:55:02 AM EST [facility] Progress NoteMID-SC[facility]. ,P.C.Krystian Monae MD., F.C.C.P.Stella Hamilton MD., F.C.C.P. [address] [place] [id number] [place] [phone]: Evelio Carlin Sex: male [...] via emergency medical services sent in from intermediate for hypoxiaand possible pne [facility]. The patient has multiple incidences of pneumonia [...] 250 mg/5 mL (5 mL) soln oral gkkspjiy178 mg by Per G Tube route every [...] 24 hrs: BP Temp Pulse Resp SpO2 Covuke1104/02 0840 - - - - 95 % [...] Procedure Component Value Units Date/Time CULTURE, BLOOD [[id number]] Col lected: 03/25/19 0255 Order Status: Completed Specimen: Blood Updated: 620 Special Requests: NO SPECIAL REQUESTS Culture result: NO GROWTH 5 DA YS CULTURE, BLOOD [[id number]] Collected: 03/25/19309 Order Status: Completed S pecimen: [...] sheath in situ. Through the sheatha 5 Emirati double-lumen 20 cm midl ine catheter was placed. The peel-away sheathwas removed. The catheter was sewn into position using 2-0 silk sutures. Thepatient tolerated the procedure. Ther e were no complications at the time of theprocedure. FINDINGS: Ultrasound inter rogation revealed a widely patent brachialvein above the antecubital fossa . A 5 Emirati dual-lumen 20 cm midline catheterwas placed. The tip was placed i n good position over the right axillary vein.IMPRESSION: 5 Emirati dual-lumen mid line catheter placed with tip [...] Supporting Document(s ) ID Date Data Source [id number] 04/02/2019 10:50:56 AM [facility] Progress NotePatient: Evelio Carlin Sex: male DOA: 03/25/2019Date of : 1950 Age: 68 y.o. :[id number]:Reyes Carlin is 68 y.o. male wearing a [...] disabilities, Contractures and Generalized muscleweakness.As [facility] record, the patient was transferred to the EDfor Hypoxia, he was found with O2 SAT 77 % on O2 NC 4 LPM and tachypneic. Hewas later placed on NRBM. Patient has a clogged jtube and the intermediate hasbeen using the gtube site for fe edings and administration of medications.Pt was seen at [facility] by fatemeh Shabazz and jocelyn ns were [...] sheath in situ. Through the sheatha 5 Emirati double-lumen 20 cm midl ine catheter was placed. The peel-away sheathwas removed. The catheter was sewn into position using 2-0 silk sutures. Thepatient tolerated the procedure. Ther e were no complications at the time of theprocedure. FINDINGS: Ultrasound inter rogation revealed a widely patent brachialvein above the antecubital fossa . A 5 Emirati dual-lumen 20 cm midline catheterwas placed. The tip was placed i n good position over the right axillary vein.IMPRESSION: 5 Emirati dual-lumen mid line catheter placed with tip [...] Supporting Document(s ) ID Date Data Source [id number] 04/02/2019 09:35:05 AM [facility] Progress NoteEmanuel Zjnyliknt14 y.o.Adm it Date: 03/25/2019Active Problems: Acute hypoxemic [...] 0659 04/02/19699 - 04/03/19 0659Shift 0700- 1859 7282-5324 24 Hour Total 4740-3153 9693-8878 24 Hour TotalINTAKEI.V.(mL/kg/ hr) 300(0.5) 300(0.2) Volume [...] SOLU-MEDROL) injection 40 mg 40 mg IntraVENous P3XXxvkypMili buchanan DO 40 mg at 04/02/19 0626 [...] Q6H RTMili Hills DO 3 mL at 04/02/19 0837 [...] 8 L/min FIO2 40.0 % Performed by [id number] OSE, POC Collection Time: 04/01/19 11:53 AMResult [...] Ns at 50 ml/mMini mal free waterReplace yw2Bzts in [facility], MDDecember 2018 Name Value Range Interpretation Code Description Data Harriett rce(s) Supporting Document(s ) ID Date Data Source [id number] 04/02/2019 07:45:30 AM [facility] Review BIPAP settings, alarms and skin a dhesive With next shift [facility] Name Value Range Interpretation Code Description Data [facility] rce(s) Supporting Document(s ) ID Date Data Source [id number] 04/02/2019 06:51:05 AM [facility] Bedside and Verbal shift change report g iven to Amber rn (oncoming nurse) byMontserrat pitts (offgoing nurse). Report i ncluded the following information SBAR,Kardex, MAR, Recent Results and Car diac Rhythm sinus matthew. Name Value Range Interpretation Code Description Data [facility] rce(s) Supporting Document(s ) ID Date Data Source [id number] 04/02/2019 06:50:[address] [facility] Name Value Range Interpretation Description Data Sup porting Code Source(s) Document(s ) Glucose 147 MG/DL 65-110 Above high normal [facility] - [facility] [Mass/volume] Zoroastrianism in Blood by Hospital Automated test strip ID Date Data Source [id number] 04/02/2019 08:06:53 AM [facility] Name Value Range Interpretation Description Data Sup porting Code Source(s) Document(s ) Sodium 136 136-145 [facility] [Moles/volume] mmol/L [facility]oroastrianism in Serum or Hospital Plasma Potassium 4.2 3.5-5.1 [facility] [Moles/volume] mmol/L Zoroastrianism in Serum or Hospital Plasma Chloride 95 98-107 Below low normal [facility] - [facility] [Moles/volume] mmol/L [facility]oroastrianism in Serum or Hospital Plasma Carbon 35 21-32 Above high normal [facility] - Good dioxide, total mmol/L Z[facility]astrianism [Moles/volume] Hospital in Serum or Plasma Anion gap in 11 10-20 [facility] Serum or mmol/L [facility]astrianism Plasma Hospital Glucose 114 74-106 Above high normal [facility] - [facility] [Mass/volume] mg/dL Zoroastrianism in Serum or Hospital Plasma Urea nitrogen 15 mg/dL 7-18 [facility] [Mass/volume] Zoroastrianism in Serum or Hospital Plasma Creatinine 0.46 0.70-1.3 Below low normal [facility] [Mass/volume] mg/dL 0 Zoroastrianism in Serum or Hospital Plasma Glomerular >60 [facility] - Good filtration Zoroastrianism rate/1.73 sq M Hospital predicted among blacks [Volume Rate/Area] in Serum or Plasma by Creatinine-bas ed formula (MDRD) Glomerular >60 [facility] - Good filtration Zoroastrianism rate/1.73 sq M Hospital predicted among non-blacks [Volume Rate/Area] in Serum or Plasma by Creatinine-bas ed formula (MDRD) Calcium 10.5 8.5-10.1 Above high normal [facility] - [facility] [Mass/volume] mg/dL Zoroastrianism in Serum or Hospital Plasma Phosphate 2.4 2.5-4.9 Below low normal [facility] - [facility] [Mass/volume] mg/dL Zoroastrianism in Serum or Hospital Plasma Albumin 2.3 g/dL 3.5-4.7 Below low normal [facility] [Mass/volume] Zoroastrianism in Serum or Hospital Plasma by Bromocresol purple (BCP) dye binding method ID Date Data Source [id number] 04/02/2019 08:06:53 AM EST [facility] Name Value Range Interpretation Description Data Sup porting Code Source(s) Document(s ) Magnesium 2.1 mg/dL 1.6-2.6 [facility] [Mass/volume] Zoroastrianism in Serum or Hospital Plasma ID Date Data Source [id number] 04/02/2019 08:15:03 AM EST [facility] Name Value Range Interpretation Description Data Sup porting Code Source(s) Document(s ) Leukocytes 11.9 4.8-10.6 Above high normal [facility] - [#/volume] in K/uL Good Blood by [facility]astrianism Automated count Hospital Erythrocytes 4.10 4.70-6.0 Below low normal [facility] - [#/volume] in M/uL 0 Good Blood by Zoroastrianism Automated count Hospital Hemoglobin 12.7 14.0-18. Below low normal [facility] - [Mass/volume] in g/dL 0 [facility] Blood [facility] Hematocrit 39.9 % 42.0-52. Below low normal [facility] - [Volume 0 Good Fraction] of Zoroastrianism Blood by Hospital Automated count Erythrocyte mean 97.3 FL 81.0-94. Above high normal [facility] - corpuscular 0 Good volume [Entitic Zoroastrianism volume] by Hospital Automated count Erythrocyte mean 31.0 PG 27.0-35. [facility] - corpuscular 0 Good hemoglobin Zoroastrianism [Entitic mass] Hospital by Automated count Erythrocyte mean 31.8 30.7-37. [facility] - corpuscular g/dL 3 Good hemoglobin Zoroastrianism concentration [facility] [Mass/volume] by Automated count Erythrocyte 16.4 % 11.5-14. Above high normal [facility] - distribution 0 Good width [Ratio] by Zoroastrianism Automated count Hospital Platelets 279 K/uL 130-400 [facility] - [#/volume] in [facility] Blood by Zoroastrianism Automated count [facility] Platelet mean 9.6 FL 9.2-11.8 [facility] - volume [Entitic Good volume] in Blood Zoroastrianism by Automated Hospital count Nucleated 0.0 PER 0 [facility] - erythrocytes/100 100 WBC Good leukocytes Zoroastrianism [Ratio] in Blood Hospital Nucleated 0.00 0.0-0.01 [facility] - erythrocytes K/uL Good [#/volume] in Zoroastrianism Blood [facility] Segmented 86 % 48.0-72. Above high normal [facility] - neutrophils/100 0 Good leukocytes in [facility] Lymphocytes/100 8 % 18.0-40. Below low normal [facility] - leukocytes in 0 Good Blood [facility] Monocytes/100 4 % 2.0-12.0 [facility] - leukocytes in [facility] Eosinophils/100 0 % 0.0-7.0 [facility] - leukocytes in [facility] Basophils/100 0 % 0.0-3.0 [facility] - leukocytes in [facility] Immature 2 % 0-0.5 Above high normal [facility] - granulocytes/100 [facility] leukocytes in [facility] by Hospital Automated count Segmented 10.2 2.3-7.6 Above high normal [facility] - neutrophils K/UL Good [#/volume] in [facility] Lymphocytes 0.9 K/UL 0.9-4.2 [facility] - [#/volume] in [facility] Monocytes 0.5 K/UL 0.1-1.7 [facility] - [#/volume] in [facility] Eosinophils 0.0 K/UL 0.0-1.0 [facility] - [#/volume] in [facility] Basophils 0.0 K/UL 0.0-0.4 [facility] - [#/volume] in [facility] Immature 0.2 K/UL 0.0-0.17 Above high normal [facility] - granulocytes Good [#/volume] in [facility] by Hospital Automated count Differential [facility] - cell count [facility] ID Date Data Source [id number] 04/02/2019 01:43:18 AM EST [facility] Problem: Pressure Injury - Risk ofGoal: [...] Supporting Document(s ) ID Date Data Source [id number] 04/02/2019 01:09:17 AM EST [facility] Name Value Range Interpretation Description Data Sup porting Code Source(s) Document(s ) Glucose 180 MG/DL 65-110 Above high normal [facility] [Mass/volume] Zoroastrianism in Blood by [facility] Automated test strip ID Date Data Source [id number] 04/01/2019 11:35:52 PM [facility] Called and left message for pt's niece. Called pt's sister Michell to discussfrequent readmissions and advance directives. Per Michell they are yarsanism andthey want full code and aggressive tx. [...] Supporting Document(s ) ID Date Data Source [id number] 04/01/2019 04:16:55 PM [facility] Name Value Range Interpretation Description Data Sup porting Code Source(s) Document(s ) Glucose 81 MG/DL 65-110 [facility] [Mass/volume] Zoroastrianism in Blood by Hospital Automated test strip ID Date Data Source [id number] 04/01/2019 02:20:49 PM EST [facility] TRANSFER - OUT REPORT:Verbal report give [...] Supporting Document(s ) ID Date Data Source [id number] 04/01/2019 02:20:08 PM [facility] TRANSFER - IN REPORT:Verbal report recei [...] Name Value Range Interpretation Code Description Data [facility] rce(s) Supporting Document(s ) ID Date Data Source [id number] 04/01/2019 02:02:13 PM [facility] Esophago- Gastroduodenoscopy (EGD) [facility]/[id number]: Endo scopic Gastroduodenoscopy with endoscopic placement of [...] Supporting Document(s ) ID Date Data Source [id number] 04/01/2019 12:21:01 PM EST [facility] Progress NoteMID-SC[facility] ,P.C.Krystian Monae MD., F.C.C.P.Stella Hamilton MD., F.C.C.P. 9W 1 [facility] [address] [place] [phone] [place] [phone]: Evelio Carlin Sex: male DOA: [...] emergency medica l services sent in from intermediate for hypoxiaand possible pneumonia. The patie nt has multiple incidences of pneumonia in thepast. The patient [facility]verbal [facility] and cannot provide any history ofreview of [...] 250 mg/5 mL (5 mL) soln oral phsmmzib290 mg by Per G Tube route every [...] 24 hrs: BP Temp Pulse Resp SpO2 Lqotwb23/18/19 1128 96/75 97.8 F (36.6 C) 79 [...] 8 L/min FIO2 40.0 % Performed by [id number], POC Collection Time: 04/01/19 11:53 AMResult Value Ref Range Glucose, bedside 101 65 - 110 MG/DLABG:Recent Labs H 7.50*PCO2 48PO2 76*HCO3 37*FIO2 40.0Recent Glucose Results:Lab ResultsComponent Seema ue Date/Time GLU 278 (H) 04/01/2019 06:00 AM GLUCPOC 101 04/01/2019 11:53 AM GLUCPOC 124 (H) 04/01/2019 06:30 AM GLUCPOC 102 04/01/2019 12:49 AM@LABAPCYTOINTERPRETAT ION@CULTURESAll Micro Results Procedure Component Value Units Date/Time CULTURE, BLOOD [[id number]] Collected: 03/25/19 0255 Order Status: Completed Specimen: Bloo d Updated: 03/30/19620 Special Requests: NO SPECIAL REQUESTS Culture result: NO GROWTH 5 DAYS CULTURE, BLOOD [[id number]] Collected: 03/25/19309 Order Status: Completed Specimen: Blood [...] sheath in situ. Through the sheatha 5 Emirati double-lumen 20 cm midl ine catheter was placed. The peel-away sheathwas removed. The catheter was sewn into position using 2-0 silk sutures. Thepatient tolerated the procedure. Ther e were no complications at the time of theprocedure. FINDINGS: Ultrasound inter rogation revealed a widely patent brachialvein above the antecubital fossa . A 5 Emirati dual-lumen 20 cm midline catheterwas placed. The tip was placed i n good position over the right axillary vein.IMPRESSION: 5 Emirati dual-lumen mid line catheter placed with tip [...] Supporting Document(s ) ID Date Data Source [id number] 04/01/2019 12:05:38 PM EST [facility] Name Value Range Interpretation Description Data Sup porting Code Source(s) Document(s ) Glucose 101 MG/DL 65-110 [facility] [Mass/volume] Zoroastrianism in Blood by Hospital Automated test strip ID Date Data Source [id number] 04/01/2019 10:52:56 AM EST [facility] Progress NoteEmanuel Czjfjtdsv61 y.o.Adm it Date: 03/25/2019Active Problems: Acute hypoxemic [...] 065 9 04/01/19 07 - 04/02/19 0659Shift 8552-3081 9671-6466 24 Hour Total 0700-1 859 7595-7009 24 Hour TotalINTAKEI.V.(mL/kg/hr) 782.5(1.2) 259 (0.4) 1041.5(0.9) [...] (SOLU-MEDROL) injection 40 mg 40 mg IntraVENous O7NHuvikuMili buchanan DO 40 mg at 04/01/19 0639 [...] 8 L/min FIO2 40.0 % Performed by [id number]:Ir Picc Insert Wo [place] 5 [...] sheath in situ. Through the sheatha 5 Emirati double-lumen 20 cm midl ine catheter was placed. The peel-away sheathwas removed. The catheter was sewn into position using 2-0 silk sutures. Thepatient tolerated the procedure. Ther e were no complications at the time of theprocedure. FINDINGS: Ultrasound inter rogation revealed a widely patent brachialvein above the antecubital fossa . A 5 Emirati dual-lumen 20 cm midline catheterwas placed. The tip was placed i n good position over the right axillary vein.IMPRESSION: 5 Emirati dual-lumen mid line catheter placed with tip positioned overthe right axillary vein.Impression:A ctive Hospital Problems Diagnosis Date Noted Acute hypoxemic respiratory failure (HCC ) 03/25/2019 Hyponatremia, correctedPlan:Continue IV antibiotics, v anco 1 gram q 12hvanco T in am ivf Ns at 50 ml/mMinimal free waterReplace iy7Jjgl in [facility] 2018 Name Value Range Interpretation Code Description Data [facility] rce(s) Supporting Document(s ) ID Date Data Source [id number] 04/01/2019 10:12:55 AM EST [facility] Name Value Range Interpretation Description Data Sup porting Code Source(s) Document(s ) pH of Arterial 7.50 7.35-7.4 Above high normal [facility] - Good blood 5 [facility] Carbon dioxide 48 mmHg 32-48 [facility] - [facility] [Partial Zoroastrianism pressure] in Hospital Arterial blood Oxygen 76 mmHg 83-108 Below low normal [facility] - [facility] [Partial Zoroastrianism pressure] in Hospital Arterial blood Carbon 39 19-24 Above high normal [facility] - Good dioxide, total mmol/L [facility]rianism [Moles/volume] Hospital in Arterial blood Bicarbonate 37 21-28 Above high normal [facility] - Go od [Moles/volume] mmol/L [facility]rianism in Arterial Hospital blood Oxygen 97 % 94-98 [facility] saturation in Zoroastrianism Blood [facility] Base excess in 12.4 0-3 Above high normal [facility] Arterial blood mmol/L [facility]astrianism by calculation Hospital Body site [facility] VENTURI MASK8 Oxygen/Inspired gas Respiratory system 40.0 % [facility] --on ventilator Service comment [id number] [place] [facility] ID Date Data Source [id number] 04/01/2019 09:35:23 AM EST [facility] IR PICC INSERT WO PORT OVER [...] vein a [place] theantecubital fossa. A 5 [place] dual-lumen 20 cm midline catheter was pl aced. Thetip was placed in good position over the right axillary vein.IMPRESSION: 5 Fr ench dual-lumen midline catheter placed with tip positioned overthe right axillary ve in. Signing date/time: 04/01/2019 9:35 AMSigned by: ELIZABETH FARR Name Value Range Interpretation Code Description Data [facility] rce(s) Supporting Document(s ) ID Date Data Source [id number] 04/01/2019 09:10:53 AM [facility] Patient brought to IR for insertion of M id line . Consent done by PMD forMEDICAL necessary. Dr Green attends and pro cedure done without incident.DSD applied and transferred to floor via bedPOWER [place] eLOT [id number] Name Value Range Interpretation Code Description Data [facility] Supporting Document(s ) ID Date Data Source [id number] 04/01/2019 07:02:33 AM [facility] Bedside and Verbal shift change report carol Clark Rn (oncoming nurse) byMontserrat pitts (offgoing nurse). Report i ncluded the following information SBAR,Kardex, MAR, Recent Results and Car diac Rhythm nsr. Name Value Range Interpretation Code Description Data [facility] Supporting Document(s ) ID Date Data Source [id number] 04/01/2019 06:43:10 AM [facility] Name Value Range Interpretation Description Data Sup porting Code Source(s) Document(s ) Glucose 124 MG/DL 65-110 Above high normal [facility] [Mass/volume] Zoroastrianism in Blood by [facility] Automated test strip ID Date Data Source [id number] 04/01/2019 06:07:33 AM [facility] Check the patient with NANCY zayas For any skin breakdown while using theBiPAP mask. RN aware of two finger tech to mas k tightness,and use of mask clipsfor any interventions Name Value Range Interpretation Code Description Data [facility] rce(s) Supporting Document(s ) ID Date Data Source [id number] 04/01/2019 06:52:53 AM [facility] Name Value Range Interpretation Description Data Sup porting Code Source(s) Document(s ) Sodium 134 136-145 Below low normal [facility] [Moles/volume] mmol/L [facility]ism in Serum or Hospital Plasma Potassium 3.9 3.5-5.1 [facility] [Moles/volume] mmol/L [facility]ism in Serum or Hospital Plasma Chloride 97 98-107 Below low normal [facility] [Moles/volume] mmol/L [facility] in Serum or Hospital Plasma Carbon 36 21-32 Above high normal [facility] dioxide, total mmol/L [facility] [Moles/volume] Hospital in Serum or Plasma Anion gap in 6 mmol/L 10-20 Below low normal [facility] - Go od Serum or [facility] Plasma Hospital Glucose 278 74-106 Above high normal [facility] [Mass/volume] mg/dL [facility]ism in Serum or Hospital Plasma Urea nitrogen 12 mg/dL 7-18 [facility] [Mass/volume] [facility]astrianism in Serum or Hospital Plasma Creatinine 0.48 0.70-1.3 Below low normal [facility] [Mass/volume] mg/dL 0 [facility]ism in Serum or Hospital Plasma Glomerular >60 [facility] filtration Zoroastrianism rate/1.73 sq M Hospital predicted among blacks [Volume Rate/Area] in Serum or Plasma by Creatinine-bas ed formula (MDRD) Glomerular >60 [facility] filtration Z[facility]astrianism rate/1.73 sq M Hospital predicted among non-blacks [Volume Rate/Area] in Serum or Plasma by Creatinine-bas ed formula (MDRD) Calcium 10.6 8.5-10.1 Above high normal [facility] [Mass/volume] mg/dL [facility]astrianism in Serum or Hospital Plasma Phosphate 2.4 2.5-4.9 Below low normal [facility] [Mass/volume] mg/dL [facility]ism in Serum or Hospital Plasma Albumin 2.5 g/dL 3.5-4.7 Below low normal [facility] [Mass/volume] [facility]astrianism in Serum or Hospital Plasma by Bromocresol purple (BCP) dye binding method ID Date Data Source [id number] 04/01/2019 06:52:53 AM EST [facility] Name Value Range Interpretation Description Data Sup porting Code Source(s) Document(s ) Magnesium 1.9 mg/dL 1.6-2.6 [facility] [Mass/volume] [facility]rianism in Serum or Hospital Plasma ID Date Data Source [id number] 04/01/2019 06:44:45 AM EST [facility] Name Value Range Interpretation Description Data Sup porting Code Source(s) Document(s ) Leukocytes 22.1 4.8-10.6 Above high normal [facility] - [#/volume] in K/uL Good Blood by [facility] Automated count Hospital Erythrocytes 4.22 4.70-6.0 Below low normal [facility] - [#/volume] in M/uL 0 Good Blood by [facility] Automated count Hospital Hemoglobin 13.1 14.0-18. Below low normal [facility] - [Mass/volume] in g/dL 0 Good Blood [facility] Hematocrit 40.5 % 42.0-52. Below low normal [facility] - [Volume 0 Good Fraction] of Zoroastrianism Blood by Hospital Automated count Erythrocyte mean 96.0 FL 81.0-94. Above high normal [facility] - corpuscular 0 Good volume [Entitic Zoroastrianism volume] by Hospital Automated count Erythrocyte mean 31.0 PG 27.0-35. [facility] - corpuscular 0 Good hemoglobin [facility]ism [Entitic mass] [facility] by Automated count Erythrocyte mean 32.3 30.7-37. [facility] - corpuscular g/dL 3 Good hemoglobin [facility] [Mass/volume] by Automated count Erythrocyte 16.4 % 11.5-14. Above high normal [facility] - distribution 0 Good width [Ratio] by [facility] Automated count Hospital Platelets 315 K/uL 130-400 [facility] - [#/volume] in Good Blood by [facility] Automated count Hospital Platelet mean 9.8 FL 9.2-11.8 [facility] - volume [Entitic Good volume] in Blood [facility] by Automated Hospital count Nucleated 0.0 PER 0 [facility] - erythrocytes/100 100 WBC Good leukocytes [facility]ism [Ratio] in Blood Hospital Nucleated 0.00 0.0-0.01 [facility] - erythrocytes K/uL Good [#/volume] in [facility]oroastrianism Blood [facility] Segmented 89 % 48.0-72. Above high normal [facility] - neutrophils/100 0 [facility] leukocytes in [facility] Lymphocytes/100 6 % 18.0-40. Below low normal [facility] - leukocytes in 0 [facility] Monocytes/100 4 % 2.0-12.0 [facility] - leukocytes in [facility] Eosinophils/100 0 % 0.0-7.0 [facility] - leukocytes in [facility] Basophils/100 0 % 0.0-3.0 [facility] - leukocytes in [facility] Immature 1 % 0-0.5 Above high normal [facility] - granulocytes/100 [facility] leukocytes in [facility] by [facility] Automated count Segmented 19.6 2.3-7.6 Above high normal [facility] - neutrophils K/UL Good [#/volume] in [facility] Lymphocytes 1.4 K/UL 0.9-4.2 [facility] - [#/volume] in [facility] Monocytes 0.9 K/UL 0.1-1.7 [facility] - [#/volume] in [facility] Eosinophils 0.0 K/UL 0.0-1.0 [facility] - [#/volume] in [facility] Basophils 0.0 K/UL 0.0-0.4 [facility] - [#/volume] in [facility] Immature 0.2 K/UL 0.0-0.17 Above high normal [facility] - granulocytes Good [#/volume] in [facility] Automated count Differential [facility] - cell count [facility] ID Date Data Source [id number] 04/01/2019 04:16:23 AM EST [facility] Pt placed on bipap tolerating well o2 sa t 92% Name Value Range Interpretation Code Description Data Harriett rce(s) Supporting Document(s ) ID Date Data Source [id number] 04/01/2019 03:14:02 AM EST [facility] Npo feedings on hold per order Name Value Range Interpretation Code Description Data Harriett rce(s) Supporting Document(s ) ID Date Data Source [id number] 04/01/2019 12:50:23 AM EST [facility] Problem: Pressure Injury - Risk ofGoal: [...] Supporting Document(s ) ID Date Data Source [id number] 04/01/2019 01:02:21 AM EST [facility] Name Value Range Interpretation Description Data Sup porting Code Source(s) Document(s ) Glucose 102 MG/DL 65-110 [facility] [Mass/volume] Zoroastrianism in Blood by [facility] Automated test strip ID Date Data Source [id number] 03/31/2019 08:00:14 PM EST [facility] Bedside and Verbal shift change report carol Garcia RN (oncoming nurse) Israel Alamo RN (offgoing nurse). Report included the following information SBAR, Kardex,Intake/Output, MAR, Recent Results and Cardiac Rhythm S matthew, NSR. Name Value Range Interpretation Code Description Data Harriett rce(s) Supporting Document(s ) ID Date Data Source [id number] 03/31/2019 06:52:37 PM EST [facility] GI PROGRESS NOTENAME: Evelio Shukla hbeinDOB: 1950MRN: [id number]:Patient sent to endo f or replacement of [...] hernia K44.9 COPD (chronic obstructive pulmonary disease) ([facility]) J44 .9 Acute respiratory distress R06.03 Pneumonia J18.9 COPD exacerbation ([facility]) J44.1 Sepsis due to undetermined organism ([facility]) A41.9 Generalized anxiety disorde r F41.1 Acute respiratory failure with hypoxia ([facility]) J96.01 Pneumonia involvin g right lung J18.9 Hyponatremia E87.1 SOB (shortness of breath) R06.02 Pressure i njury of right heel, stage 2 ([facility]) L89.612 Leg wound, right, initial encounter S81. 801A Acute hypoxemic respiratory failure ([facility]) J96.01Assessment: Fractured PEG c ap which [...] Supporting Document(s ) ID Date Data Source [id number] 03/31/2019 05:36:26 PM [facility] Progress NoteMID-SC[facility]. ,P.C.Krystian Monae MD., F.C.C.P.Stella Hamilton MD., F.C.C.P. [address] [place] [id number] [place] [address] [phone]: Evelio Carlin Sex: male DOA: [...] via emergency medical services sent in from intermediate for hypoxiaand possible pne [facility]. The patient has multiple incidences of pneumonia [...] 250 mg/5 mL (5 mL) soln oral [id number] mg by Per G Tube route every [...] 24 hrs: BP Temp Pulse Resp SpO2 Zvhkkp1403/31 1640 125/73 98.2 F (36.8 C) 85 [...] Procedure Component Value Units Date/Time CULTURE, BLOOD [[id number]] Collected: 03/25/19 0255 Order Status: Completed Specimen: Blood Updated: 03/30/19620 Special Requests: NO SPEC IAL REQUESTS Culture result: NO GROWTH 5 DAYS CULTURE, BLOOD [[id number]] Collecte d: 03/25/19309 Order Status: Completed Specimen: [...] Supporting Document(s ) ID Date Data Source [id number] 03/31/2019 05:00:36 PM [facility] Name Value Range Interpretation Description Data Sup porting Code Source(s) Document(s ) Glucose 115 MG/DL 65-110 Above high normal [facility] [Mass/volume] Zoroastrianism in Blood by Hospital Automated test strip ID Date Data Source [id number] 03/31/2019 03:05:23 PM EST [facility] Progress NotePatient: Evelio Carlin Sex: male DOA: 03/25/2019Date of : 1950 Age: 68 y.o. :[id number]:Reyes Carlin is 68 y.o. male who is [...] llectual disabilities.and Generalized muscle weakness.As per the intermediate transfe r record, the patient was transferred to the EDfor Hypoxia, he was found with O2 SAT 77 % on O2 NC 4 LPM and tachypneic. Hewas later placed on NRBM. Patient has a vivian gged jtube and the intermediate hasbeen using the gtube site for feedings and administ ration of medications.Pt was seen at [facility] by fatemeh Shabazz and plans were for [...] Supporting Document(s ) ID Date Data Source [id number] 03/31/2019 02:33:53 PM EST [facility] Relevant ProblemsNo relevant active prob lemsAnesthetic [...] with: Family, Legal guardian and Healthcarepower of vocational examiner Name Value Range Interpretation Code Description Data Harriett rce(s) Supporting Document(s ) ID Date Data Source [id number] 03/31/2019 02:12:20 PM [facility] Problem: Nutrition DeficitGoal: *Tolerat ing enteral [...] Supporting Document(s ) ID Date Data Source [id number] 03/31/2019 02:01:32 PM [facility] NUTRITIONFollow Up Note/ ConsultSubje ctive: No EN [...] Supporting Document(s ) ID Date Data Source [id number] 03/31/2019 01:20:13 PM EST [facility] ID Progress Note03/31/2019Subjective:Betty razo with history of MR,COPD,recurrent aspiration pneumonia,dysphagia s/p pegpl acement was transferred from the intermediate for respiratory distress,lowoxygen satur ation of 77% [...] 24 hrs: BP Temp Pulse Resp SpO2 Ddommn60/17/19 1206 122/90 - 8 9 24 90 [...] Supporting Document(s ) ID Date Data Source [id number] 03/31/2019 11:10:26 AM EST [facility] Name Value Range Interpretation Description Data Sup porting Code Source(s) Document(s ) Prothrombin 10.7 sec 9.4-11.1 [facility] time (PT) [facility] INR in 1.1 0.8-1.2 [facility] Platelet poor [facility] plasma by Hospital Coagulation assay ID Date Data Source [id number] 03/31/2019 09:47:19 AM EST [facility] Progress NoteEmanuel Dsffiltyk41 y.o.Adm it Date: 03/25/2019Active Problems: Acute hypoxemic [...] 065 9 03/31/19 0700 - 04/01/19 0659Shift 2864-9025 7950-3915 24 Hour Total 0700-1 859 2316-1436 24 Hour TotalINTAKENG/GT 250 250 Water Flush [...] injection 40 mg 40 mg Int raVENous B9DIbzqrsMili buchanan DO 40 mg at 03/31/19 0609 acetylcysteine (MUCOMYST) 100 mg/mL (10 %) nebulizer solution 400 mg 4 mLInhalation BID RT Mili iHlls D O 400 mg at 03/31/19 0934 [...] ivf d5half at 50 ml/mMinimal free waterReplace cm9Qdat in [facility], MDDecember 2018 Name Value Range Interpretation Code Description Data [facility] Supporting Document(s ) ID Date Data Source [id number] 03/31/2019 08:03:02 AM [facility] Bedside and Verbal shift change report g iven to NANCY Chou (oncoming nurse) byEmily Aviles RN (offgoing nurse) . Report included the followinginformation SBAR, Kardex, Intake/Output, MAR and Rec ent Results. Name Value Range Interpretation Code Description Data [facility] Supporting Document(s ) ID Date Data Source [id number] 03/31/2019 08:02:19 AM [facility] Multiple attempts to insert a new IV. Nixon porter RN's attempted unsuccessfully.Current IV day 6 with no signs of infiltration, no edema, no phlebitis noted andpatent. Dr. Hills was contacted. New orders receive d for Midline insertion andare now in place. Name Value Range Interpretation Code Description Data [facility] Supporting Document(s ) ID Date Data Source [id number] 03/31/2019 06:34:31 AM EST [facility] Name Value Range Interpretation Description Data Sup porting Code Source(s) Document(s ) Glucose 82 MG/DL 65-110 [facility] [Mass/volume] [facility]oroastrianism in Blood by [facility] Automated test strip ID Date Data Source [id number] 03/31/2019 06:16:42 AM EST [facility] Name Value Range Interpretation Description Data Sup porting Code Source(s) Document(s ) Leukocytes 11.5 4.8-10.6 Above high normal [facility] - [#/volume] in K/uL Good Blood by [facility] Automated count Hospital Erythrocytes 4.17 4.70-6.0 Below low normal [facility] - [#/volume] in M/uL 0 Good Blood by [facility] Automated count [facility] Hemoglobin 12.9 14.0-18. Below low normal [facility] - [Mass/volume] in g/dL 0 Good Blood [facility] Hematocrit 39.7 % 42.0-52. Below low normal [facility] - [Volume 0 Good Fraction] of [facility]ism Blood by Hospital Automated count Erythrocyte mean 95.2 FL 81.0-94. Above high normal [facility] - corpuscular 0 Good volume [Entitic [facility]oroastrianism volume] by Hospital Automated count Erythrocyte mean 30.9 PG 27.0-35. [facility] - corpuscular 0 Good hemoglobin [facility] [Entitic mass] Hospital by Automated count Erythrocyte mean 32.5 30.7-37. [facility] - corpuscular g/dL 3 Good hemoglobin [facility] concentration Hospital [Mass/volume] by Automated count Erythrocyte 16.4 % 11.5-14. Above high normal [facility] - distribution 0 Good width [Ratio] by [facility] Automated count Hospital Platelets 296 K/uL 130-400 [facility] - [#/volume] in Good Blood by [facility] Automated count [facility] Platelet mean 9.8 FL 9.2-11.8 [facility] - volume [Entitic Good volume] in Blood [facility] by Automated Hospital count Nucleated 0.0 PER 0 [facility] - erythrocytes/100 100 WBC Good leukocytes [facility] [Ratio] in Blood Hospital Nucleated 0.00 0.0-0.01 [facility] - erythrocytes K/uL Good [#/volume] in [facility] Segmented 77 % 48.0-72. Above high normal [facility] - neutrophils/100 0 [facility] leukocytes in [facility] Lymphocytes/100 16 % 18.0-40. Below low normal [facility] - leukocytes in 0 [facility] Monocytes/100 6 % 2.0-12.0 [facility] - leukocytes in [facility] Eosinophils/100 0 % 0.0-7.0 [facility] - leukocytes in [facility] Basophils/100 0 % 0.0-3.0 [facility] - leukocytes in [facility] Immature 1 % 0-0.5 Above high normal [facility] - granulocytes/100 Good leukocytes in [facility] by [facility] Automated count Segmented 8.9 K/UL 2.3-7.6 Above high normal [facility] - neutrophils Good [#/volume] in [facility] Lymphocytes 1.8 K/UL 0.9-4.2 [facility] - [#/volume] in [facility] Monocytes 0.7 K/UL 0.1-1.7 [facility] - [#/volume] in [facility] Eosinophils 0.0 K/UL 0.0-1.0 [facility] - [#/volume] in [facility] Basophils 0.0 K/UL 0.0-0.4 [facility] - [#/volume] in [facility] Immature 0.1 K/UL 0.0-0.17 [facility] - granulocytes Good [#/volume] in [facility] Automated count Differential [facility] - cell count [facility] ID Date Data Source [id number] 03/31/2019 06:14:08 AM EST [facility] Name Value Range Interpretation Description Data Sup porting Code Source(s) Document(s ) Sodium 136 136-145 [facility] [Moles/volume] mmol/L [facility] in Serum or Hospital Plasma Potassium 4.0 3.5-5.1 [facility] [Moles/volume] mmol/L [facility] in Serum or Hospital Plasma Chloride 98 98-107 [facility] [Moles/volume] mmol/L [facility] in Serum or Hospital Plasma Carbon 39 21-32 Above high normal [facility] dioxide, total mmol/L [facility] [Moles/volume] Hospital in Serum or Plasma Anion gap in 4 mmol/L 10-20 Below low normal [facility] Go od Serum or [facility] Plasma Hospital Glucose 84 mg/dL 74-106 [facility] [Mass/volume] [facility]rianism in Serum or Hospital Plasma Urea nitrogen 17 mg/dL 7-18 [facility] [Mass/volume] [facility]rianism in Serum or Hospital Plasma Creatinine 0.41 0.70-1.3 Below low normal [facility] [Mass/volume] mg/dL 0 [facility] in Serum or Hospital Plasma Glomerular >60 [facility] filtration [facility]ism rate/1.73 sq M Hospital predicted among blacks [Volume Rate/Area] in Serum or Plasma by Creatinine-bas ed formula (MDRD) Glomerular >60 [facility] filtration [facility]ism rate/1.73 sq M Hospital predicted among non-blacks [Volume Rate/Area] in Serum or Plasma by Creatinine-bas ed formula (MDRD) Calcium 10.7 8.5-10.1 Above high normal [facility] [Mass/volume] mg/dL [facility] in Serum or Hospital Plasma Phosphate 3.1 2.5-4.9 [facility] [Mass/volume] mg/dL [facility] in Serum or Hospital Plasma Albumin 2.4 g/dL 3.5-4.7 Below low normal [facility] [Mass/volume] [facility]rianism in Serum or Hospital Plasma by Bromocresol purple (BCP) dye binding method ID Date Data Source [id number] 03/31/2019 06:14:08 AM EST [facility] Name Value Range Interpretation Description Data Sup porting Code Source(s) Document(s ) Magnesium 2.3 mg/dL 1.6-2.6 [facility] [Mass/volume] [facility]astrianism in Serum or Hospital Plasma ID Date Data Source [id number] 03/31/2019 04:39:01 AM EST [facility] Problem: Pressure Injury - Risk ofGoal: [...] Supporting Document(s ) ID Date Data Source [id number] 03/31/2019 12:56:11 AM EST [facility] Name Value Range Interpretation Description Data Sup porting Code Source(s) Document(s ) Glucose 131 MG/DL 65-110 Above high normal [facility] [Mass/volume] [facility]oroastrianism in Blood by Hospital Automated test strip ID Date Data Source [id number] 03/30/2019 11:14:36 PM EST [facility] Progress NotePatient: Evelio Carlin Sex: male DOA: 03/25/2019Date of : 1950 Age: 68 y.o. :[id number]:Reyes Carlin is 68 y.o. male who was [...] intellectual disabilities.and Generalized muscle weakness.As per the [facility] transfer record, the patient was transferred to the EDfor Hypoxia, he was found with O2 SAT 77 % on O2 NC 4 LPM and tachypneic. Hewas later placed on NRBM. Patient has a clogged jtube and the intermediate hasbeen using the gtube site for fe edings and administration of medications.Pt was seen at [facility] by fatemeh Shabazz and jocelyn ns were [...] FIO2 in the last 72 hours.CULTURE, BLOOD [[id number]] (Order [id number])MicrobiologyD ate: 03/25/2019 Department: [facility] Med Surg Released By/Authorizing:Daniela Neumann MD (auto-released)Specimen Information: Blood Component Value Flag Ref Range Units StatusSpecial Requests: FinalNO SPECIAL REQUESTSCulture result: NO GROWTH 5 DAYSCULTURE, BLOOD [[id number]] (Order [id number])MicrobiologyDate: 03/25 Department: [facility] Med Surg Released By/Authorizing:Jessie Neumann MD [...] Supporting Document(s ) ID Date Data Source [id number] 03/30/2019 09:44:06 PM EST [facility] Consult NotePatient: Evelio Jean RN: [id number] CSN: [id number] of : 1950 Age: 68 y.o. Sex: [...] and the kalpana were re moved in Only. 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 ,P.C.Krystian Monae MD., F.C.C.P.Stella Hamilton MD., F.C.C.P. [address] [place] [address] [place] [address] [phone]: Evelio Carlin Sex: male DOA: 03/25/2019D ate of : 1950 Age: 68 y.o. LOS: LOS: 5 daysSubjective: Reyes Carlin is a 68 y.o. male with history of COPD, GERD,hyperparathyroidism, Parkinso nism, pneumonia, schizophrenia, and pulmonaryemboli with a surgical history of gastrostomy who presents to the EmergencyDepartment via emergency medica l services sent in from intermediate for hypoxiaand possible pneumonia. [facility]ie nt [facility] and cannot provide any history ofreview of [...] 24 hrs: BP Temp Pulse Resp SpO2 Spzvzy6403/30 1945 108/84 98.2 F (36.8 C) 70 [...] Procedure Component Value Units Date/Time CULTURE, BLOOD [[id number]] Collected: 03/25/19 0255 Order Status: Completed Specimen: Blood Updated: 03/30/19620 Special Requests: NO SPEC IAL REQUESTS Culture result: NO GROWTH 5 DAYS CULTURE, BLOOD [[id number]] Collecte d: 03/25/19309 Order Status: Completed Specimen: [...] Name Value Range Interpretation Code Description Data [facility] Supporting Document(s ) ID Date Data Source [id number] 03/30/2019 08:36:18 PM EST [facility] Bedside and Verbal shift change report g ankit to Brooks Aviles (oncoming nurse)by Aneta Mcdonald (offgoing nurse). Report includ ed the following information SBAR,Kardex, MAR and Recent Results. Name Value Range Interpretation Code Description Data [facility](s) Supporting Document(s ) ID Date Data Source [id number] 03/30/2019 07:45:03 PM EST [facility] Problem: Falls - Risk ofGoal: *Absence o f FallsDescriptionDocument Samra Fall Risk and appropriate interventions in the jhon wsheet.Outcome: Progressing Towards GoalNote: Fall Risk Interventions:Mentation Interv entions: Adequate sleep, hydration, pain controlMedication Interventions: Bed/maggy ir exit alarmElimination Interventions: Bed/chair exit alarmProblem: Seizure Dis order (Adult)Goal: *STG: Remains free of seizure activityOutcome: Progressing [place] ards GoalGoal: InterventionsOutcome: Progressing Towards Goal Name Value Range Interpretation Code Description Data Harriett rce(s) Supporting Document(s ) ID Date Data Source [id number] 03/30/2019 05:11:22 PM EST [facility] Name Value Range Interpretation Description Data Sup porting Code Source(s) Document(s ) Glucose 125 MG/DL 65-110 Above high normal [facility] - Good [Mass/volume] Zoroastrianism in Blood by [facility] Automated test strip ID Date Data Source [id number] 03/30/2019 11:56:11 AM EST [facility] Name Value Range Interpretation Description Data Sup porting Code Source(s) Document(s ) Glucose 108 MG/DL 65-110 [facility] - Good [Mass/volume] Zoroastrianism in Blood by Hospital Automated test strip ID Date Data Source [id number] 03/30/2019 11:17:28 AM EST [facility] RECOMMENDATIONS:Continue current tube fe eding orderRecommend supplement(s): Prostat BID (100kcal, 15g prot ea)When feasible add 100 ml free water [id number] ASSESSMENT InitialSubjective: pt is nonverbal PEG c [...] 1472.5 mlOutput 700 mlNet 772.5 mlNutrition Rx: 9928-9748 kcal; 67-81 g protein (1.25-1.5 g/kg); 7547-4797 mlfluid (1ml/kcal)[based on: Kcal/kg] 30-35% Es timated [...] f easible add 100 ml free water f9bYcrez:Pt meets >75% of estimated energy and prote in needs within 3-5 daysMonitoring and EvaluationFollow EN/PN RxMonitor weightM onitor GI Statusrenal labsReadiness to add free waterDischarge Planning:Pending Cli nical Course [x] No cultural, yarsanism, or ethnic dietary needs identified [] Cult ural, yarsanism and ethnic food preferences identified and addressed [] Participate d in care plan, discharge planning/Interdisciplinary roundsJeeric Camarillo RD Name Value Range Interpretation Code Description Data Harriett rce(s) Supporting Document(s ) ID Date Data Source [id number] 03/30/2019 09:53:27 AM EST [facility] Progress NoteEmanuel Ivmavuqzr85 y.o.Adm it Date: 03/25/2019Active Problems: Acute hypoxemic [...] 03/30/19 07 - 03/31/19 0659Shift 0700- 1859 0485-1770 24 Hour Total 0313-1298 5926-6155 24 Hour TotalINTAKENG/GT 300 300 Water Flush [...] injection 40 mg 40 mg Int raVENous P1PMluhxuMili buchanan DO 40 mg at 03/30/19 0614 [...] correctedPlan:Continue IV antibioticsStop ivfMinimal free waterRep lace pc1Opsf in [facility], MDDecember 2018 Name Value Range Interpretation Code Description Data Harriett rce(s) Supporting Document(s ) ID Date Data Source [id number] 03/30/2019 09:09:28 AM EST [facility] ID Progress Note03/30/2019Subjective:Pat ient with history of MR,COPD,recurrent aspiration pneumonia,dysphagia s/p pegpl acement was transferred from the intermediate for respiratory distress,lowoxygen satur ation of 77% on 4 L nasal canula.Patient is non verbal,more awake today butunable to provide any historyAwake non verbal,unale to provide historyWbc wnlBlood culture no g rowth.AfebrileAwaiting Surgical J tube placement as current on with leak and cr ack in theinlet portObjective:Review of SystemsUnable to provide.Vitals:Patient Vitals for the past 24 hrs: BP Temp Pulse Resp SpO2 Gtbnil93/16/19 0753 133/69 98. 3 F (36.8 C) [...] Supporting Document(s ) ID Date Data Source [id number] 03/30/2019 09:02:20 AM EST [facility] GI PROGRESS NOTENAME: Evelio Shukla hbeinDOB: 1950MRN: [id number]:Faulty J-tube, crack i n inlet port leaking, [...] hernia K44.9 COPD (chronic obstructive pulmonary disease) ([facility]) J44 .9 Acute respiratory distress R06.03 Pneumonia J18.9 COPD exacerbation ([facility]) J44.1 Sepsis due to undetermined organism ([facility]) A41.9 Generalized anxiety disorde r F41.1 Acute respiratory failure with hypoxia ([facility]) J96.01 Pneumonia involvin g right lung J18.9 Hyponatremia E87.1 SOB (shortness of breath) R06.02 Pressure i njury of right heel, stage 2 ([facility]) L89.612 Leg wound, right, initial encounter S81. 801A Acute hypoxemic respiratory failure ([facility]) J96.01Assessment: Vomiting and as piration when [...] Supporting Document(s ) ID Date Data Source [id number] 03/30/2019 08:12:01 AM [facility] Problem: Pressure Injury - Risk ofGoal: [...] Supporting Document(s ) ID Date Data Source [id number] 03/30/2019 08:10:46 AM EST [facility] As per Irais PITTS in endoscopy, pt is not going for revision of PEG tube today andcan receive medications and restart feedings . Will continue to monitor pt Name Value Range Interpretation Code Description Data Harriett rce(s) Supporting Document(s ) ID Date Data Source [id number] 03/30/2019 07:08:19 AM [facility] Review BIPAP settings, alarms and skin a dhesive With next shift RT [facility] Name Value Range Interpretation Code Description Data Harriett rce(s) Supporting Document(s ) ID Date Data Source [id number] 03/30/2019 07:25:33 AM [facility] Name Value Range Interpretation Description Data Sup porting Code Source(s) Document(s ) Glucose 98 MG/DL 65-110 [facility] - Good [Mass/volume] Zoroastrianism in Blood by [facility] Automated test strip ID Date Data Source [id number] 03/30/2019 07:34:40 AM [facility] Name Value Range Interpretation Description Data Sup porting Code Source(s) Document(s ) Leukocytes 10.5 4.8-10.6 [facility] - [#/volume] in K/uL Good Blood by [facility] Erythrocytes 4.57 4.70-6.0 Below low normal [facility] - [#/volume] in M/uL 0 Good Blood by [facility] Hemoglobin 14.4 14.0-18. [facility] - [Mass/volume] in g/dL 0 Good Blood [facility] Hematocrit 42.5 % 42.0-52. [facility] - [Volume 0 Good Fraction] of Zoroastrianism Blood by Hospital Automated count Erythrocyte mean 93.0 FL 81.0-94. [facility] - corpuscular 0 Good volume [Entitic Zoroastrianism volume] by Hospital Automated count Erythrocyte mean 31.5 PG 27.0-35. [facility] - corpuscular 0 Good hemoglobin Zoroastrianism [Entitic mass] [facility] by Automated count Erythrocyte mean 33.9 30.7-37. [facility] - corpuscular g/dL 3 Good hemoglobin [facility] [Mass/volume] by Automated count Erythrocyte 16.0 % 11.5-14. Above high normal [facility] - distribution 0 Good width [Ratio] by [facility]oroastrianism Automated count Hospital Platelets 346 K/uL 130-400 [facility] - [#/volume] in [facility] Blood by Zoroastrianism Automated count [facility] Platelet mean 10.2 FL 9.2-11.8 [facility] - volume [Entitic Good volume] in [facility] by Automated Hospital count Segmented 88 % 48.0-72. Above high normal [facility] - neutrophils/100 [address] [facility] Lymphocytes/100 9 % 18.0-40. Below low normal [facility] - leukocytes in 0 [facility] Monocytes/100 3 % 2.0-12.0 [facility] - leukocytes in [facility] Eosinophils/100 0 % 0.0-7.0 [facility] - leukocytes in [facility] Basophils/100 0 % 0.0-3.0 [facility] - leukocytes in [facility] Segmented 9.2 K/UL 1.5-6.6 Above high normal [facility] - neutrophils Good [#/volume] in [facility] Lymphocytes 0.9 K/UL 1.5-3.5 Below low normal [facility] - [#/volume] in [facility] Monocytes 0.3 K/UL 0.0-1.0 [facility] - [#/volume] in [facility] Eosinophils 0.0 K/UL 0.0-0.7 [facility] - [#/volume] in [facility] Basophils 0.0 K/UL 0.0-0.1 [facility] - [#/volume] in [facility] Differential [facility] - cell count [facility] method [facility] Immature 0 % 0.0-2.0 [facility] - granulocytes/100 Good leukocytes in [facility] by Hospital Automated count ID Date Data Source [id number] 03/30/2019 07:03:20 AM EST [facility] Name Value Range Interpretation Description Data Sup porting Code Source(s) Document(s ) Sodium 134 136-145 Below low normal [facility] - Good [Moles/volume] mmol/L Zoroastrianism in Serum or Hospital Plasma Potassium 4.8 3.5-5.1 [facility] - Good [Moles/volume] mmol/L Zoroastrianism in Serum or Hospital Plasma Chloride 95 98-107 Below low normal [facility] - Good [Moles/volume] mmol/L Zoroastrianism in Serum or Hospital Plasma Carbon 34 21-32 Above high normal [facility] - Good dioxide, total mmol/L Zoroastrianism [Moles/volume] Hospital in Serum or Plasma Anion gap in 10 10-20 [facility] - Good Serum or mmol/L [facility]ism Plasma Hospital Glucose 99 mg/dL 74-106 [facility] - Good [Mass/volume] Zoroastrianism in Serum or Hospital Plasma Urea nitrogen 12 mg/dL 7-18 [facility] - Good [Mass/volume] Zoroastrianism in Serum or Hospital Plasma Creatinine 0.45 0.70-1.3 Below low normal [facility] - Good [Mass/volume] mg/dL 0 Zoroastrianism in Serum or Hospital Plasma Glomerular >60 [facility] - Good filtration Zoroastrianism rate/1.73 sq M Hospital predicted among blacks [Volume Rate/Area] in Serum or Plasma by Creatinine-bas ed formula (MDRD) Glomerular >60 [facility] - Good filtration Zoroastrianism rate/1.73 sq M Hospital predicted among non-blacks [Volume Rate/Area] in Serum or Plasma by Creatinine-bas ed formula (MDRD) Calcium 10.5 8.5-10.1 Above high normal [facility] - Good [Mass/volume] mg/dL Zoroastrianism in Serum or Hospital Plasma Phosphate 3.1 2.5-4.9 [facility] - Good [Mass/volume] mg/dL Zoroastrianism in Serum or Hospital Plasma Albumin 2.9 g/dL 3.5-4.7 Below low normal [facility] - Good [Mass/volume] Zoroastrianism in Serum or Hospital Plasma by Bromocresol purple (BCP) dye binding method ID Date Data Source [id number] 03/30/2019 07:03:20 AM EST [facility] Name Value Range Interpretation Description Data Sup porting Code Source(s) Document(s ) Magnesium 2.2 mg/dL 1.6-2.6 [facility] - Good [Mass/volume] Zoroastrianism in Serum or Hospital Plasma ID Date Data Source [id number] 03/30/2019 12:35:38 AM EST [facility] Name Value Range Interpretation Description Data Sup porting Code Source(s) Document(s ) Glucose 99 MG/DL 65-110 [facility] [Mass/volume] Zoroastrianism in Blood by [facility] Automated test strip ID Date Data Source [id number] 03/29/2019 07:49:13 PM [facility] Bedside and Verbal shift change report carol pham to Anastasiya RN (oncoming nurse) Sandoval RN (offgoing nurse). Report included the following information SBAR,Kardex, MAR and Recent Results. Name Value Range Interpretation Code Description Data Harriett rce(s) Supporting Document(s ) ID Date Data Source [id number] 03/29/2019 06:04:45 PM [facility] PULMONARY/ CCM- Consult NotePatient: Ivelisse Carlin Sex: male DOA: 03/25/2019Date of : [birth year] Age: 68 y.o. LOS: LOS: 4 daysHPI: step down.Evelio Carlin is a 68 y.o. male who has been seen for respfailure.sepsis,pneumonia.Seen raul uribe today, on bipap prn,on nasal canula ,lesscongested.improving.agitated [facility].Past Medical History:Diagnosis Date Chronic obstructive pulmonary disease [...] 250 mg/5 mL (5 mL) soln oral jecxzryz855 mg by Per G Tube route every [...] (DEPAKENE) 250 mg/5 mL (5 mL) oral ufbodcma981 mg, 750 mg, Per G Tube, Q12H, [...] 0603/29/19 07 - 03/30/19 0659Shift 0700- 1859 6306-6399 24 Hour Total 4722-1151 9913-3278 24 Hour TotalINTAKEI.V.(mL/kg/ hr) 300(0.5) 300(0.2) Volume [...] Supporting Document(s ) ID Date Data Source [id number] 03/29/2019 02:20:35 PM [facility] Progress NotePatient: Evelio Carlin Sex: male DOA: 03/25/2019Date of : 1950 Age: 68 y.o. :[id number]:Reyes Carlin is 68 y.o. male with pulling [...] He is sandhya TF.For jtube placement in [facility]. He has medical history of Dysphagia, recurrent aspiration pneumonia, s/p g/tc onversion to jtube on 02/07/19, hyperlipidemia,hyperparathyroid,unspecif ied,seizure, large hiatal hernia, anxiety disorder, personal history ofpulmonary e mbolus,COPD, GERD, Schizophrenia unspecified, Kyphosis, Parkinsondisease, Severe inte llectual disabilities.and Generalized muscle weakness.As per the intermediate transfe r record, the patient was transferred to the EDfor Hypoxia, he was found with O2 SAT 77 % on O2 NC 4 LPM and tachypneic. Hewas later placed on NRBM. Patient has a vivian gged jtube and the intermediate hasbeen using the gtube site for feedings and administ ration of medications.Pt was seen at [facility] by fatemeh Shabazz and plans were for jtube pl acement, that wasscheduled for today. The patient is nonverbal and unable to parti cipate with his history.Patient was admitted with encounter diag of Acute Hypercapnei c and Hypoxemicrespiratory failure and aspiration pneumonia. Also, diag of [employer] D, Leukocytosis,Malfunctioning jtube, dysphagia, Anxiety Disorder and [...] in the last 72 tammy rs.CULTURE, BLOOD [[id number]] (Order [id number])MicrobiologyDate: 03/25/2019 D epartment: [facility] Med Surg Released By/Authorizing:Jessie Neumann MD (auto-released)Specimen Information: Blood Component Value Flag Ref Range Units Sta tusSpecial Requests: PreliminaryNO SPECIAL REQUESTSCulture result: NO GROWT H 4 DAYSCULTURE, BLOOD [[id number]] (Order [id number])MicrobiologyDate: 03/25/2019 D epartment: [facility] Med Surg [...] Supporting Document(s ) ID Date Data Source [id number] 03/29/2019 02:05:27 PM [facility] GI PROGRESS NOTENAME: Evelio Johnson inDOB: 1950MRN: [id number]:Tolerating TFs via nyasia e portObjective:VITALS:Last 24hrs VS [...] hernia K44.9 COPD (chronic obstructive pulmonary disease) ([facility]) J44 .9 Acute respiratory distress R06.03 Pneumonia J18.9 COPD exacerbation ([facility]) J44.1 Sepsis due to undetermined organism ([facility]) A41.9 Generalized anxiety disorde r F41.1 Acute respiratory failure with hypoxia ([facility]) J96.01 Pneumonia involvin g right lung J18.9 Hyponatremia E87.1 SOB (shortness of breath) R06.02 Pressure i njury of right heel, stage 2 ([facility]) L89.612 Leg wound, right, initial encounter S81. 801A Acute hypoxemic respiratory failure ([facility]) J96.01Assessment: Defective J tub ingPlan: For J tube replacement in am - consent obtained NPO after midnightSign ed By: Marly Amaya MD 03/29/2019 1:59 PM Name Value Range Interpretation Code Description Data Harriett rce(s) Supporting Document(s ) ID Date Data Source [id number] 03/29/2019 01:34:48 PM EST [facility] Progress NotePatient: Evelio Carlin Sex: male DOA: 03/25/2019Date of : 1950 Age: 68 y.o. :[id number]:Reyes Carlin is 68 y.o. male who was [...] disabilities.and Generalized muscle weak ness.As per the intermediate transfer record, the patient was transferred to the EDfor Hypoxia, he was found with O2 SAT 77 % on O2 NC 4 LPM and tachypneic. Hewas later placed on NRBM. Patient has a clogged jtube and the intermediate hasbeen using the g tube site for feedings and administration of medications.Pt was seen at [facility] by fatemeh Mei and plans were for [...] -- 2.3*ALB 2.2* 2.4* -- 1.9*Recent Labs [id number] 7.40PCO2 48PO2 49*HCO3 30*FIO2 28.0CULTURE, BLOOD [[id number]] (Order [id number])MicrobiologyDate: 03/25/2019 Department: [facility] Med Surg Released By/ Authorizing:Jessie Neumann MD (auto-released)Specimen Information: Blo od Component Value Flag Ref Range Units StatusSpecial Requests: Preliminary NO SPECIAL REQUESTSCulture result: NO GROWTH 4 DAYSCULTURE, BLOOD [[id number]] (Order [id number])MicrobiologyDate: 03/25/2019 Department: [facility] Med Surg Released By/ Authorizing:Jessie Neumann [...] Supporting Document(s ) ID Date Data Source [id number] 03/29/2019 12:21:58 PM EST [facility] ID Progress Note03/29/2019Subjective:Pat ient with history of MR,COPD,recurrent aspiration pneumonia,dysphagia s/p pegpl acement was transferred from the intermediate for respiratory distress,lowoxygen satur ation of 77% on 4 L nasal canula.Patient is non verbal,more awake today butunable to provide any historyAwake non verbal,unale to provide historyWbc wnlBlood culture no g rowth.AfebrileObjective:Review of SystemsUnable to provide.Vitals:Patient Vitals for the past 24 hrs: BP Temp Pulse Resp SpO2 Twfdzs22/15/19 0826 - - - - 99 % [...] Name Value Range Interpretation Code Description Data [facility] rce(s) Supporting Document(s ) ID Date Data Source [id number] 03/29/2019 11:48:01 AM [facility] Name Value Range Interpretation Description Data Sup porting Code Source(s) Document(s ) Glucose 153 MG/DL 65-110 Above high normal [facility] - Good [Mass/volume] Zoroastrianism in Blood by [facility] Automated test strip ID Date Data Source [id number] 03/29/2019 07:38:05 AM [facility] Bedside and Verbal shift change report carol pham to Kirti RN (oncoming nurse) Jennifer RN (offgoing nurse). Report included the [facility] information SBAR,Intake/Output, MAR, Recent Results, Med Rec Status and Cardi ac Rhythm .. Name Value Range Interpretation Code Description Data [facility] rce(s) Supporting Document(s ) ID Date Data Source [id number] 03/29/2019 06:29:52 AM [facility] Name Value Range Interpretation Description Data Sup porting Code Source(s) Document(s ) Glucose 131 MG/DL 65-110 Above high normal [facility] - Good [Mass/volume] Zoroastrianism in Blood by Hospital Automated test strip ID Date Data Source [id number] 03/29/2019 06:59:56 AM [facility] Name Value Range Interpretation Description Data Sup porting Code Source(s) Document(s ) Sodium 135 136-145 Below low normal [facility] - Good [Moles/volume] mmol/L [facility]ism in Serum or Hospital Plasma Potassium 3.9 3.5-5.1 [facility] - Good [Moles/volume] mmol/L [facility]rianism in Serum or Hospital Plasma Chloride 98 98-107 [facility] - Good [Moles/volume] mmol/L [facility]ism in Serum or Hospital Plasma Carbon 35 21-32 Above high normal [facility] - Good dioxide, total mmol/L [facility] [Moles/volume] Hospital in Serum or Plasma Anion gap in 6 mmol/L 10-20 Below low normal [facility] - Go od Serum or [facility] Plasma Hospital Glucose 121 74-106 Above high normal [facility] - Good [Mass/volume] mg/dL Zoroastrianism in Serum or Hospital Plasma Urea nitrogen 12 mg/dL 7-18 [facility] - Good [Mass/volume] Zoroastrianism in Serum or Hospital Plasma Creatinine 0.33 0.70-1.3 Below low normal [facility] - Good [Mass/volume] mg/dL 0 [facility]oroastrianism in Serum or Hospital Plasma Glomerular >60 [facility] - Good filtration Zoroastrianism rate/1.73 sq M Hospital predicted among blacks [Volume Rate/Area] in Serum or Plasma by Creatinine-bas ed formula (MDRD) Glomerular >60 [facility] - Good filtration Zoroastrianism rate/1.73 sq M Hospital predicted among non-blacks [Volume Rate/Area] in Serum or Plasma by Creatinine-bas ed formula (MDRD) Calcium 9.8 8.5-10.1 [facility] - Good [Mass/volume] mg/dL [facility]oroastrianism in Serum or Hospital Plasma Phosphate 2.8 2.5-4.9 [facility] - Good [Mass/volume] mg/dL [facility]astrianism in Serum or Hospital Plasma Albumin 2.4 g/dL 3.5-4.7 Below low normal [facility] - Good [Mass/volume] Zoroastrianism in Serum or Hospital Plasma by Bromocresol purple (BCP) dye binding method ID Date Data Source [id number] 03/29/2019 06:59:56 AM EST [facility] Name Value Range Interpretation Description Data Sup porting Code Source(s) Document(s ) Magnesium 2.0 mg/dL 1.6-2.6 [facility] - Good [Mass/volume] Zoroastrianism in Serum or Hospital Plasma ID Date Data Source [id number] 03/29/2019 06:57:30 AM EST [facility] Name Value Range Interpretation Description Data Sup porting Code Source(s) Document(s ) Leukocytes 8.4 K/uL 4.8-10.6 [facility] - [#/volume] in Good Blood by [facility] Automated count Hospital Erythrocytes 3.78 4.70-6.0 Below low normal [facility] - [#/volume] in M/uL 0 Good Blood by [facility] Hospital Hemoglobin 11.7 14.0-18. Below low normal [facility] - [Mass/volume] in g/dL 0 [facility] Blood [facility] Hematocrit 35.8 % 42.0-52. Below low normal [facility] - [Volume 0 Good Fraction] of Zoroastrianism Blood by Hospital Automated count Erythrocyte mean 94.7 FL 81.0-94. Above high normal [facility] - corpuscular 0 Good volume [Entitic Zoroastrianism volume] by Hospital Automated count Erythrocyte mean 31.0 PG 27.0-35. [facility] - corpuscular 0 Good hemoglobin [facility]astrianism [Entitic mass] Hospital by Automated count Erythrocyte mean 32.7 30.7-37. [facility] - corpuscular g/dL 3 Good hemoglobin Zoroastrianism concentration [facility] [Mass/volume] by Automated count Erythrocyte 16.2 % 11.5-14. Above high normal [facility] - distribution 0 Good width [Ratio] by [facility] Automated count Hospital Platelets 308 K/uL 130-400 [facility] - [#/volume] in Good Blood by [facility] Automated count [facility] Platelet mean 9.9 FL 9.2-11.8 [facility] - volume [Entitic Good volume] in Blood [facility] by Automated Hospital count Segmented 89 % 48.0-72. Above high normal [facility] - neutrophils/100 [address] [facility] Lymphocytes/100 7 % 18.0-40. Below low normal [facility] - leukocytes in 0 [facility] Blood [facility] Monocytes/100 4 % 2.0-12.0 [facility] - leukocytes in [facility] Blood [facility] Eosinophils/100 0 % 0.0-7.0 [facility] - leukocytes in [facility] Blood [facility] Basophils/100 0 % 0.0-3.0 [facility] - leukocytes in [facility] Segmented 7.4 K/UL 1.5-6.6 Above high normal [facility] - neutrophils Good [#/volume] in [facility] Lymphocytes 0.6 K/UL 1.5-3.5 Below low normal [facility] - [#/volume] in [facility] Monocytes 0.4 K/UL 0.0-1.0 [facility] - [#/volume] in [facility] Eosinophils 0.0 K/UL 0.0-0.7 [facility] - [#/volume] in [facility] Basophils 0.0 K/UL 0.0-0.1 [facility] - [#/volume] in [facility] Differential [facility] - cell count [facility] Immature 0 % 0.0-2.0 [facility] - granulocytes/100 [facility] leukocytes in [facility]rianism Blood by [facility] Automated count ID Date Data Source [id number] 03/29/2019 01:55:57 AM EST [facility] Patient continues to remove bipap. Asked hospitalist to place restraintsorder. Patient desaturates when off the bipap. Mitten restraints initiated. Name Value Range Interpretation Code Description Data Harriett rce(s) Supporting Document(s ) ID Date Data Source [id number] 03/29/2019 12:56:08 AM EST [facility] Name Value Range Interpretation Description Data Sup porting Code Source(s) Document(s ) Glucose 112 MG/DL 65-110 Above high normal [facility] [Mass/volume] Zoroastrianism in Blood [facility] Automated test strip ID Date Data Source [id number] 03/29/2019 12:01:26 AM EST [facility] Patient slapping himself in the face con [...] Name Value Range Interpretation Code Description Data [facility] rce(s) Supporting Document(s ) ID Date Data Source [id number] 03/28/2019 08:05:00 PM [facility] [facility] Bedside and Verbal shift change report carol raglandten ayan Rey, RN (oncoming nurse) Israel Alamo RN (offgoing nurse). Report included the following information SBAR, Kardex,Intake/Output, MAR, Recent Results and Cardiac Rhythm S matthew. Name Value Range Interpretation Code Description Data [facility] rce(s) Supporting Document(s ) ID Date Data Source [id number] 03/28/2019 05:30:55 PM [facility] No reddness on nose Name Value Range Interpretation Code Description Data [facility] rce(s) Supporting Document(s ) ID Date Data Source [id number] 03/28/2019 04:38:28 PM [facility] Name Value Range Interpretation Description Data Sup porting Code Source(s) Document(s ) Glucose 109 MG/DL 65-110 [facility] [Mass/volume] Zoroastrianism in Blood by Hospital Automated test strip ID Date Data Source [id number] 03/28/2019 03:13:15 PM [facility] ID Progress Note03/28/2019Subjective:Dulce ke non verbal,off BiPAP,unable to provide historyWbc wnlBlood culture no growth.Af ebrileObjective:Review of SystemsUnable to provide.Vitals:Patient Vitals for the mt st 24 hrs: BP Temp Pulse Resp SpO2 Xknbsn09/14/19 1123 149/80 98.1 F (36.7 C) 75 [...] Supporting Document(s ) ID Date Data Source [id number] 03/28/2019 03:09:31 PM EST [facility] PULMONARY/ CCM- Consult NotePatient: Ivelisse nuel [...] 250 mg/5 mL (5 mL) soln oral apfpdbul460 mg by Per G Tube route every [...] (DEPAKENE) 250 mg/5 mL (5 mL) oral kwtilujz381 mg, 750 mg, Per G Tube, Q12H [...] 065 9 03/28/19 0700 - 03/29/19 0659Shift [id number] 0608-8815 24 Hour Total 0700-1 859 0156-6023 24 Hour TotalINTAKEI.V.(mL/kg/hr) 250(0.4) 250( 0.2) Volume [...] images were obtained and reviewed on a [employer] d viewingworkstation and directly supervised. Contrast: A [...] Supporting Document(s ) ID Date Data Source [id number] 03/28/2019 01:20:57 PM EST [facility] GI PROGRESS NOTENAME: Evelio Johnson inDOB: 1950MRN: [id number]:Tolerating tube feeds through the side portBroken main [...] hernia K44.9 COPD (chronic obstructive pulmonary disease) ([facility]) J44 .9 Acute respiratory distress R06.03 Pneumonia J18.9 COPD exacerbation ([facility]) J44.1 Sepsis due to undetermined organism ([facility]) A41.9 Generalized anxiety disorde r F41.1 Acute respiratory failure with hypoxia ([facility]) J96.01 Pneumonia involvin g right lung J18.9 Hyponatremia E87.1 SOB (shortness of breath) R06.02 Pressure i njury of right heel, stage 2 ([facility]) L89.612 Leg wound, right, initial encounter S81. 801A Acute hypoxemic respiratory failure ([facility]) J96.01Assessment: Dysphagia - s/p PEJ via PEG placement, but tubing appears to be defectivePlan: Continue TFs via side port for now Will need to replace J tubing on mondaysigned By: Marly Amaya MD 03/28/2019 1:19 PM Name Value Range Interpretation Code Description Data Harriett rce(s) Supporting Document(s ) ID Date Data Source [id number] 03/28/2019 12:26:18 PM EST [facility] Name Value Range Interpretation Description Data Sup porting Code Source(s) Document(s ) Glucose 144 MG/DL 65-110 Above high normal [facility] [Mass/volume] Zoroastrianism in Blood by Hospital Automated test strip ID Date Data Source [id number] 03/28/2019 08:45:43 AM EST [facility] Progress NotePatient: Evelio Carlin Sex: male DOA: 03/25/2019Date of : 1950 Age: 68 y.o. :[id number]:Reyes Carlin is 68 y.o. male was seen [...] llectual disabilities.and Generalized muscle weakness.As per the intermediate transfe r record, the patient was transferred to the EDfor Hypoxia, he was found with O2 SAT 77 % on O2 NC 4 LPM and tachypneic. Hewas later placed on NRBM. Patient has a vivian gged jtube and the intermediate hasbeen using the gtube site for feedings and administ ration of medications.Pt was seen at [facility] by fatemeh Shabazz and plans were for jtube pl acement, that wasscheduled for today.The patient is nonverbal and unable to parti cipate with his history.Patient was admitted with encounter diag of Acute Hypercapnei c and Hypoxemicrespiratory failure and aspiration pneumonia. Also, diag of [employer] D, Leukocytosis,Malfunctioning jtube, dysphagia, Anxiety Disorder and [...] 49* 86HCO3 30* 35*FIO2 28.0 100.0CULTURE, BLOOD [[id number]] (Order [id number])MicrobiologyDate: 03/25/2019 Department: [facility] 3[facility] Med Surg Released By/ Authorizing:Jessie Neumann MD (auto-released)Specimen Information: Blo od Component Value Flag Ref Range Units StatusSpecial Requests: Preliminary NO SPECIAL REQUESTSCulture result: NO GROWTH 2 DAYSCULTURE, BLOOD [[id number]] (Order [id number])MicrobiologyDate: 03/25/2019 Department: [facility] 3t Med Surg Released By/ Authorizing:Jessie Neumann [...] Supporting Document(s ) ID Date Data Source [id number] 03/28/2019 07:28:35 AM EST [facility] Bedside and Verbal shift change report g iven to Kait RN (oncoming nurse) Yves Bonilla RN(offgoing nurse). Report given with SBAR, Kardex, Intake/Output, MAR and RecentResults. Name Value Range Interpretation Code Description Data Harriett rce(s) Supporting Document(s ) ID Date Data Source [id number] 03/28/2019 09:18:07 AM EST [facility] Name Value Range Interpretation Description Data Sup porting Code Source(s) Document(s ) Leukocytes 9.1 K/uL 4.8-10.6 [facility] - [#/volume] in Good Blood by Zoroastrianism Automated count Hospital Erythrocytes 3.70 4.70-6.0 Below low normal [facility] - [#/volume] in M/uL 0 Good Blood by [facility]astrianism Automated count Hospital Hemoglobin 11.6 14.0-18. Below low normal [facility] - [Mass/volume] in g/dL 0 [facility] Blood [facility] Hematocrit 34.4 % 42.0-52. Below low normal [facility] - [Volume 0 Good Fraction] of Zoroastrianism Blood by Hospital Automated count Erythrocyte mean 93.0 FL 81.0-94. [facility] - corpuscular 0 Good volume [Entitic Zoroastrianism volume] by Hospital Automated count Erythrocyte mean 31.4 PG 27.0-35. [facility] - corpuscular 0 Good hemoglobin Zoroastrianism [Entitic mass] [facility] by Automated count Erythrocyte mean 33.7 30.7-37. [facility] - corpuscular g/dL 3 Good hemoglobin Zoroastrianism concentration [facility] [Mass/volume] by Automated count Erythrocyte 15.9 % 11.5-14. Above high normal [facility] - distribution 0 Good width [Ratio] by Zoroastrianism Automated count Hospital Platelets 301 K/uL 130-400 [facility] - [#/volume] in Good Blood by Zoroastrianism Automated count Hospital Platelet mean 10.6 FL 9.2-11.8 [facility] - volume [Entitic Good volume] in Blood Zoroastrianism by Automated Hospital count Segmented 92 % 48-72 Above high normal [facility] - neutrophils/100 Good leukocytes in Zoroastrianism Blood by Manual Hospital count Band form 2 % <1 Above high normal [facility] - neutrophils/100 Good leukocytes in Zoroastrianism Blood by Manual Hospital count Lymphocytes/100 3 % 18-40 Below low normal [facility] - leukocytes in Good Blood by Manual Zoroastrianism count Hospital Monocytes/100 3 % 2-12 [facility] - leukocytes in Good Blood by Manual Zoroastrianism count Hospital 1+ANISOCYTOSISFEWTARGET CELLS Platelet adequacy [Presence] in Blood by [facility] Light microscopy Differential cell count method - Blood [facility] ID Date Data Source [id number] 03/28/2019 08:08:48 AM EST [facility] Name Value Range Interpretation Description Data Sup porting Code Source(s) Document(s ) Sodium 138 136-145 [facility] [Moles/volume] mmol/L Zoroastrianism in Serum or Hospital Plasma Potassium 3.9 3.5-5.1 [facility] [Moles/volume] mmol/L Zoroastrianism in Serum or Hospital Plasma Chloride 103 98-107 [facility] [Moles/volume] mmol/L Zoroastrianism in Serum or Hospital Plasma Carbon 29 21-32 [facility] - [facility] dioxide, total mmol/L Zoroastrianism [Moles/volume] Hospital in Serum or Plasma Anion gap in 10 10-20 [facility] Serum or mmol/L Zoroastrianism Plasma Hospital Glucose 134 74-106 Above high normal [facility] [Mass/volume] mg/dL Zoroastrianism in Serum or Hospital Plasma Urea nitrogen 15 mg/dL 7-18 [facility] [Mass/volume] Zoroastrianism in Serum or Hospital Plasma Creatinine 0.39 0.70-1.3 Below low normal [facility] [Mass/volume] mg/dL 0 Zoroastrianism in Serum or Hospital Plasma Glomerular >60 [facility] - [facility] filtration Zoroastrianism rate/1.73 sq M Hospital predicted among blacks [Volume Rate/Area] in Serum or Plasma by Creatinine-bas ed formula (MDRD) Glomerular >60 [facility] - Good filtration Zoroastrianism rate/1.73 sq M Hospital predicted among non-blacks [Volume Rate/Area] in Serum or Plasma by Creatinine-bas ed formula (MDRD) Calcium 9.5 8.5-10.1 [facility] [Mass/volume] mg/dL Zoroastrianism in Serum or Hospital Plasma Phosphate 2.3 2.5-4.9 Below low normal [facility] [Mass/volume] mg/dL Zoroastrianism in Serum or Hospital Plasma Albumin 2.2 g/dL 3.5-4.7 Below low normal [facility] [Mass/volume] Zoroastrianism in Serum or Hospital Plasma by Bromocresol purple (BCP) dye binding method ID Date Data Source [id number] 03/28/2019 08:08:48 AM EST [facility] Name Value Range Interpretation Description Data Sup porting Code Source(s) Document(s ) Magnesium 2.0 mg/dL 1.6-2.6 [facility] [Mass/volume] Zoroastrianism in Serum or Hospital Plasma ID Date Data Source [id number] 03/28/2019 02:58:03 AM EST [facility] Problem: Pressure Injury - Risk [...] free of injury during seizure activityOutcome: Progressing [place] ar[place] GoalGoal: *STG: Remains safe in hospitalOutcome: Progressing Towards Goa lGoal: InterventionsOutcome: Progressing Towards GoalProblem: Patient Education: Go to Patient Education ActivityGoal: Patient/Family EducationOutcome: Progres sing Towards GoalProblem: Nutrition DeficitGoal: *Tolerating enteral feeding Outcome: Progressing Towards Goal Name Value Range Interpretation Code Description Data [facility] rce(s) Supporting Document(s ) ID Date Data Source [id number] 03/27/2019 10:12:36 PM EST [facility] Name Value Range Interpretation Description Data Sup porting Code Source(s) Document(s ) Vancomycin 13.2 10-20 [facility] [Mass/volume] ug/mL Zoroastrianism in Serum or Hospital Plasma --trough (NOTE)Trough levels of 15-20 ug/mL shoul d be targeted for patients withcoagulase negative Staphylococcus and MRSA pneumon ia, endocarditis,osteomyelitis, meningitis, and bacteremia; as well as patients notr esponding to lower levels. Trough levels of 10-15 ug/mL forinfections from other [facility] rces (e.g. urinary tract, cellulitis) areappropriate. All patients receiving c oncomitant nephrotoxic therapiesshould have their function closely monitored regardl ess of peak ortrough levels. ID Date Data Source [id number] 03/27/2019 07:39:26 PM EST [facility] Bedside and Verbal shift change report carol Ochoa RN (oncoming nurse) Kvng Carpio RN (offgoing nurse). Report included the followinginformation SBAR, Kardex, MAR, Recent Results, Med Rec Sta tus and Cardiac RhythmNSR, Sinus Matthew. Name Value Range Interpretation Code Description Data [facility] rce(s) Supporting Document(s ) ID Date Data Source [id number] 03/27/2019 07:02:49 PM EST [facility] Progress NoteMID-[facility] ,P.C.Krystian Monae MD., F.C.C.P.Stella Hamilton MD., F.C.C.P. [address] [place] [address] [place] [address] [phone]: Evelio Carlin Sex: male DOA: 03/25/2019D ate of : 1950 Age: 68 y.o. LOS: LOS: 2 daysSubjective: Reyes Carlin is a 68 y.o. male with history of COPD, GERD,hyperparathyroidism, Parkinso nism, pneumonia, schizophrenia, and pulmonaryemboli with a surgical history of gastrostomy who presents to the EmergencyDepartment via emergency medica l services sent in from intermediate for hypoxiaand possible pneumonia. [facility]ie nt [facility] [place] and cannot provide any history ofreview of [...] 250 mg/5 mL (5 mL) soln oral ivkdrudc175 mg by Per G Tube route every [...] past 24 hrs: BP Temp Pulse Resp EnM93603/27/19 1539 128/71 97 F (36.1 C) 68 [...] Procedure Component Value Units Date/Time CULTURE, BLOOD [[id number]] Col lected: 03/25/195 Order Status: Completed Specimen: Blood Updated: 611 Special Requests: NO SPECIAL REQUESTS Culture result: NO GROWTH 2 DA YS CULTURE, BLOOD [[id number]] Collected: 03/25/19309 Order Status: Completed S pecimen: [...] Supporting Document(s ) ID Date Data Source [id number] 03/27/2019 05:53:16 PM EST [facility] ID Progress Note03/27/2019Subjective:Dulce ke non verbal,off BiPAP,unable to provide historyWbc trending downBlood culture no growth.AfebrileObjective:Review of SystemsUnable to provide.Vitals:Patient Vitals for the past 24 hrs: BP Temp Pulse Resp IaS181/13/19 1539 128/71 97 F (36. 1 C) [...] cefepime and vancomycin2. Follow cultures.Natasha Dudley MDDecember 20184:14 PM Name Value Range Interpretation Code Description Data Harriett rce(s) Supporting Document(s ) ID Date Data Source [id number] 03/27/2019 04:53:18 PM EST [facility] Name Value Range Interpretation Description Data Sup porting Code Source(s) Document(s ) Glucose 113 MG/DL 65-110 Above high normal [facility] [Mass/volume] Zoroastrianism in Blood by [facility] Automated test strip ID Date Data Source [id number] 03/27/2019 03:48:03 PM EST [facility] YUAN started and placed in chart Name Value Range Interpretation Code Description Data Harriett rce(s) Supporting Document(s ) ID Date Data Source [id number] 03/27/2019 11:53:54 AM [facility] Progress Bella Chase y.o.Adm it Date: 03/25/2019Active [...] - 03/27/19 0659 03/27/19699 - 03/28/19 0659Shift [id number] 9882-3565 24 Hour Total 0700-1 859 1129-1607 24 Hour TotalINTAKEI.V.(mL/kg/hr) 200(0.3) 1172. 5(1.8) 1372.5(1.1) [...] injection 40 mg 40 mg Int raVENous Q1QLpdlwwMili buchanan DO 40 mg at 03/27/19 0626 [...] correctedPlan:Continue IV antibioticsStop ivfMinimal free waterRep lace jh0Mbdg in [facility] Centerheim, MDDecember 2018 Name Value Range Interpretation Code Description Data Harriett rce(s) Supporting Document(s ) ID Date Data Source [id number] 03/27/2019 12:02:11 PM EST [facility] Name Value Range Interpretation Description Data Sup porting Code Source(s) Document(s ) Glucose 142 MG/DL 65-110 Above high normal [facility] [Mass/volume] Zoroastrianism in Blood by Hospital Automated test strip ID Date Data Source [id number] 03/27/2019 09:14:30 AM EST [facility] GI PROGRESS NOTENAME: Evelio Shukla hbeinDOB: 1950MRN: [id number]:The patient had his PE G converted to [...] hernia K44.9 COPD (chronic obstructive pulmonary disease) ([facility]) J44 .9 Acute respiratory distress R06.03 Pneumonia J18.9 COPD exacerbation ([facility]) J44.1 Sepsis due to undetermined organism ([facility]) A41.9 Generalized anxiety disorde r F41.1 Acute respiratory failure with hypoxia ([facility]) J96.01 Pneumonia involvin g right lung J18.9 Hyponatremia E87.1 SOB (shortness of breath) R06.02 Pressure i njury of right heel, stage 2 ([facility]) L89.612 Leg wound, right, initial encounter S81. 801A Acute hypoxemic respiratory failure ([facility]) J96.01Assessment: Aspiration from PEG so it was converted to a PEJ yesterday which is nowleaking because of a crack i n the plastic cath.Plan: Continue feeds through a side tube and if unsuccessful than change tubesendoscopically on Saturday.Signed By: Nikos Martinez MD 9:04 AM Name Value Range Interpretation Code Description Data Harriett rce(s) Supporting Document(s ) ID Date Data Source [id number] 03/27/2019 07:51:50 AM EST [facility] Bedside and Verbal shift change report carol pham to KAIT RN (oncoming nurse) Yves Bonilla RN(offgoing nurse). Report given with SBAR, Kardex, Intake/Output, MAR and RecentResults. Name Value Range Interpretation Code Description Data Harriett rce(s) Supporting Document(s ) ID Date Data Source [id number] 03/27/2019 09:17:33 AM EST [facility] Name Value Range Interpretation Description Data Sup porting Code Source(s) Document(s ) Sodium 138 136-145 [facility] [Moles/volume] mmol/L [facility] in Serum or Hospital Plasma Potassium 3.7 3.5-5.1 [facility] [Moles/volume] mmol/L [facility]rianism in Serum or Hospital Plasma Chloride 100 98-107 [facility] [Moles/volume] mmol/L [facility]rianism in Serum or Hospital Plasma Carbon 29 21-32 [facility] - Good dioxide, total mmol/L [facility] [Moles/volume] Hospital in Serum or Plasma Anion gap in 13 10-20 [facility] Serum or mmol/L [facility]ism Plasma Hospital Glucose 104 74-106 [facility] [Mass/volume] mg/dL Zoroastrianism in Serum or Hospital Plasma Urea nitrogen 9 mg/dL 7-18 [facility] [Mass/volume] Zoroastrianism in Serum or Hospital Plasma Creatinine 0.32 0.70-1.3 Below low normal [facility] [Mass/volume] mg/dL 0 Zoroastrianism in Serum or Hospital Plasma Glomerular >60 [facility] - Good filtration Zoroastrianism rate/1.73 sq M Hospital predicted among blacks [Volume Rate/Area] in Serum or Plasma by Creatinine-bas ed formula (MDRD) Glomerular >60 [facility] - Good filtration Zoroastrianism rate/1.73 sq M Hospital predicted among non-blacks [Volume Rate/Area] in Serum or Plasma by Creatinine-bas ed formula (MDRD) Calcium 9.6 8.5-10.1 [facility] [Mass/volume] mg/dL Zoroastrianism in Serum or Hospital Plasma Phosphate 1.8 2.5-4.9 Below low normal [facility] [Mass/volume] mg/dL Zoroastrianism in Serum or Hospital Plasma Albumin 2.4 g/dL 3.5-4.7 Below low normal [facility] [Mass/volume] Zoroastrianism in Serum or Hospital Plasma by Bromocresol purple (BCP) dye binding method ID Date Data Source [id number] 03/27/2019 09:17:33 AM EST [facility] Name Value Range Interpretation Description Data Sup porting Code Source(s) Document(s ) Magnesium 1.8 mg/dL 1.6-2.6 [facility] [Mass/volume] Zoroastrianism in Serum or Hospital Plasma ID Date Data Source [id number] 03/27/2019 08:54:53 AM EST [facility] Name Value Range Interpretation Description Data Sup porting Code Source(s) Document(s ) Leukocytes 13.2 4.8-10.6 Above high normal [facility] - [#/volume] in K/uL Good Blood by Zoroastrianism Automated [facility] Erythrocytes 3.76 4.70-6.0 Below low normal [facility] - [#/volume] in M/uL 0 Good Blood by [facility] Hemoglobin 11.6 14.0-18. Below low normal [facility] - [Mass/volume] in g/dL 0 Good Blood [facility] Hematocrit 35.8 % 42.0-52. Below low normal [facility] - [Volume 0 Good Fraction] of Zoroastrianism Blood by [facility] Automated count Erythrocyte mean 95.2 FL 81.0-94. Above high normal [facility] - corpuscular 0 Good volume [Entitic Zoroastrianism volume] by Hospital Automated count Erythrocyte mean 30.9 PG 27.0-35. [facility] - corpuscular 0 Good hemoglobin Zoroastrianism [Entitic mass] [facility] by Automated count Erythrocyte mean 32.4 30.7-37. [facility] - corpuscular g/dL 3 Good hemoglobin [facility] [Mass/volume] by Automated count Erythrocyte 15.9 % 11.5-14. Above high normal [facility] - distribution 0 Good width [Ratio] by Zoroastrianism Automated count Hospital Platelets 349 K/uL 130-400 [facility] - [#/volume] in [facility] Blood by Zoroastrianism Automated count [facility] Platelet mean 10.4 FL 9.2-11.8 [facility] - volume [Entitic Good volume] in [facility] Automated Hospital count Segmented 88 % 48.0-72. Above high normal [facility] - neutrophils/100 [address] [facility] Lymphocytes/100 8 % 18.0-40. Below low normal [facility] - leukocytes in 0 [facility] Monocytes/100 4 % 2.0-12.0 [facility] - leukocytes in [facility] Eosinophils/100 0 % 0.0-7.0 [facility] - leukocytes in [facility] Basophils/100 0 % 0.0-3.0 [facility] - leukocytes in [facility] Segmented 11.6 1.5-6.6 Above high normal [facility] - neutrophils K/UL Good [#/volume] in [facility] Lymphocytes 1.0 K/UL 1.5-3.5 Below low normal [facility] - [#/volume] in [facility] Monocytes 0.5 K/UL 0.0-1.0 [facility] - [#/volume] in [facility] Eosinophils 0.0 K/UL 0.0-0.7 [facility] - [#/volume] in [facility] Basophils 0.0 K/UL 0.0-0.1 [facility] - [#/volume] in [facility] Differential [facility] - cell count [facility] method [facility] Immature 0 % 0.0-2.0 [facility] - granulocytes/100 [facility] leukocytes in [facility] Automated count ID Date Data Source [id number] 03/27/2019 12:22:01 AM EST [facility] Problem: Pressure Injury - Risk ofGoal: [...] Supporting Document(s ) ID Date Data Source [id number] 03/26/2019 07:34:03 PM EST [facility] ID Progress Note03/26/2019Subjective:Dulce ke non verbal,off BiPAP,unable to provide historyWbc trending downCultures pending .AfebrileObjective:Review of SystemsUnable to provide.Vitals:Patient Vitals for the mt st 24 hrs: BP Temp Pulse Resp RiN24803/26/19 1109 130/81 97 F (36.1 C) 75 [...] Supporting Document(s ) ID Date Data Source [id number] 03/26/2019 04:35:03 PM [facility] Progress NotePatient: Evelio Carlin Sex: male DOA: 03/25/2019Date of : 1950 Age: 68 y.o. :[id number]:Reyes Carlin is 68 y.o. male who is [...] intellectual disabilities.and Generalized muscle weakness.As per the [facility] transfer record, the patient was transferred to the EDfor Hypoxia, he was found with O2 SAT 77 % on O2 NC 4 LPM and tachypneic. Hewas later placed on NRBM. Patient has a clogged jtube and the intermediate hasbeen using the gtube site for fe edings and administration of medications.Pt was seen at [facility] by Dr Motley, gi and jocelyn ns [...] Supporting Document(s ) ID Date Data Source [id number] 03/26/2019 03:24:43 PM EST [facility] Esophago- Gastroduodenoscopy (EGD) Dea Carlin5/10/[id number]: Endo scopic Gastroduodenoscopy with positioning of jenunal [...] Name Value Range Interpretation Code Description Data [facility] rce(s) Supporting Document(s ) ID Date Data Source [id number] 03/26/2019 02:25:33 PM EST [facility] TRANSFER - IN REPORT:Verbal report laureni [...] Supporting Document(s ) ID Date Data Source [id number] 03/26/2019 01:30:00 PM EST [facility] PULMONARY/ CCM- Consult NotePatient: Ivelisse Carlin [...] mg/5 mL (5 m L) soln oral noqtmnwx032 mg by Per G Tube route every [...] file 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 Use Smoking status: Never Smoker Smokeless tobacco: [...] (DEPAKENE) 250 mg/5 mL (5 mL) oral crxnvusn245 mg, 750 mg, Per G Tube, Q12H [...] - 03/26/1965803/26/19 0700 - 03/27/19 0 659Shift [id number] 3013-4777 24 Hour Total 9591-8949 9022-7557 24 Hour TotalINTAKEI .V.(mL/kg/hr) 1140(1.7) 1140(0.9) Volume [...] Supporting Document(s ) ID Date Data Source [id number] 03/26/2019 11:24:43 AM [facility] Progress NoteLuis Albertouel Ejuvlmpop77 y.o.Adm it Date: 03/25/2019Active Problems: Acute hypoxemic [...] 065 9 03/26/19 0700 - 03/27/19 0659Shift [id number] 6529-4612 24 Hour Total 0700-1 859 6754-9608 24 Hour TotalINTAKEI.V.(mL/kg/hr) 1140(1.7) 114 0(0.9) Volume [...] i njection 40 mg 40 mg IntraVENous [id number] buchanan DO 40 mg at 03/26/19 0502 [...] mL/hr at 03/26/19 0600 1 g at [id number] acetylcysteine (MUCOMYST) 100 mg/mL (10 %) nebulizer [...] Range Osmolality,urine 773 300 - 1,000 MOSM/kg [id number], UR, RANDOM Collection Time: 03/26/19 7:10 AMResult [...] TO AND READ BACK BY Performed by [id number] ACID Collection Time: 03/26/19 10:15 AMR esult Value Ref Range Lactic acid 1.5 0.4 - 2.0 MMOL/LImaging:No results found.Impre ssion:Active Hospital Problems Diagnosis Date Noted Acute hypoxemic respiratory failu re (HCC) 03/25/2019 Hyponatremia, correctedPlan:Continue IV antibioticsCha nge IV fluid to d5ns at 50 ml/hLabs in [facility], [facility] 2018 Name Value Range Interpretation Code Description Data Harriett rce(s) Supporting Document(s ) ID Date Data Source [id number] 03/26/2019 11:21:27 AM [facility] Consult NotePatient: Evelio Carlin Sex: male [...] disorder schizophrenia Pulmonary emboli (HCC) S chizophrenia ([facility])Past Surgical History:Procedure Laterality Date HX GA [...] 250 mg/5 mL (5 mL) soln oral [id number] mg by Per G Tube route every [...] (MBP/ADV) 50 mL MBP 1 gIntraVE Nous L4UOfbsqs of Systems No n verba, all information [...] PRESSURE SUPPORT 14 RATE 15 Performed by [id number] NALYSIS W/ RFLX MICROSCOPIC Collection Time: 03/25/19 [...] Supporting Document(s ) ID Date Data Source [id number] 03/26/2019 10:49:07 AM EST [facility] Patient not tolerating bipap. Placed on 28% ventimask. rn aware. Name Value Range Interpretation Code Description Data Harriett rce(s) Supporting Document(s ) ID Date Data Source [id number] 03/26/2019 11:20:53 AM EST [facility] Value Range Interpretation Description Data Sup porting Code Source(s) Document(s ) Lactate 1.5 0.4-2.0 [facility] [Moles/volu MMOL/L [facility] me] in Hospital Serum or Plasma ID Date Data Source [id number] 03/26/2019 09:53:10 AM EST [facility] Value Range Interpretation Description Data Sup porting Code Source(s) Document(s ) pH of Arterial 7.40 7.35-7.4 [facility] blood 5 [facility] Carbon dioxide 48 mmHg 32-48 [facility] [Partial Zoroastrianism pressure] in Hospital Arterial blood Oxygen 49 mmHg 83-108 Below lower panic [facility] [Partial limits [facility]oroastrianism pressure] in Hospital Arterial blood Carbon 31 19-24 Above high normal [facility] dioxide, total mmol/L [facility] [Moles/volume] Hospital in Arterial blood Bicarbonate 30 21-28 Above high normal [facility] - Go od [Moles/volume] mmol/L [facility] in Arterial Hospital blood Oxygen 84 % 94-98 Below low normal [facility] saturation in [facility] Blood Hospital Base excess in 4.0 0-3 Above high normal [facility] Arterial blood mmol/L [facility] by calculation Hospital Body site [facility] Arterial [facility] patency Wrist [facility]rianism artery --pre Hospital arterial puncture VENTURI MASK4 Oxygen/Inspired gas Respiratory system 28.0 % [facility] --on ventilator CALLED TO AND READ BACK BYJACQUELYN CALDERON RN at 0952 by JOHNSON MCKEON [id number] ID Date Data Source [id number] 03/26/2019 09:12:46 AM EST [facility] Value Range Interpretation Code Description Data Supporting Source(s) Document(s ) Lactate 0.4-2.0 [facility] [Moles/volum [facility]oroastrianism e] in Serum Hospital or Plasma CALLED TO AND READ BACK BYJACQUELYN CALDERON RN 03/26/19 911AM LUCIEN CROSS ID Date Data Source [id number] 03/26/2019 09:05:36 AM EST [facility] Name Value Range Interpretation Description Data Sup porting Code Source(s) Document(s ) Sodium 143 136-145 [facility] [Moles/volume] mmol/L [facility] in Serum or Hospital Plasma Potassium 4.2 3.5-5.1 [facility] [Moles/volume] mmol/L [facility] in Serum or Hospital Plasma Chloride 111 98-107 Above high normal [facility] [Moles/volume] mmol/L [facility] in Serum or Hospital Plasma Carbon 28 21-32 [facility] dioxide, total mmol/L [facility] [Moles/volume] Hospital in Serum or Plasma Anion gap in 8 mmol/L 10-20 Below low normal [facility] Go od Serum or [facility]ism Plasma Hospital Glucose 105 74-106 [facility] [Mass/volume] mg/dL [facility] in Serum or Hospital Plasma Urea nitrogen 12 mg/dL 7-18 [facility] [Mass/volume] Zoroastrianism in Serum or Hospital Plasma Creatinine 0.32 0.70-1.3 Below low normal [facility] [Mass/volume] mg/dL 0 [facility] in Serum or Hospital Plasma Glomerular >60 [facility] filtration [facility]rianism rate/1.73 sq M Hospital predicted among blacks [Volume Rate/Area] in Serum or Plasma by Creatinine-bas ed formula (MDRD) Glomerular >60 [facility] filtration [facility]ism rate/1.73 sq M Hospital predicted among non-blacks [Volume Rate/Area] in Serum or Plasma by Creatinine-bas ed formula (MDRD) Calcium 8.0 8.5-10.1 Below low normal [facility] [Mass/volume] mg/dL [facility]ism in Serum or Hospital Plasma Phosphate 2.3 2.5-4.9 Below low normal [facility] [Mass/volume] mg/dL [facility]ism in Serum or Hospital Plasma Albumin 1.9 g/dL 3.5-4.7 Below low normal [facility] [Mass/volume] [facility]oroastrianism in Serum or Hospital Plasma by Bromocresol purple (BCP) dye binding method ID Date Data Source [id number] 03/26/2019 09:05:36 AM EST [facility] Name Value Range Interpretation Description Data Sup porting Code Source(s) Document(s ) Magnesium 1.8 mg/dL 1.6-2.6 [facility] [Mass/volume] [facility]astrianism in Serum or Hospital Plasma ID Date Data Source [id number] 03/26/2019 08:50:30 AM EST [facility] Name Value Range Interpretation Description Data Sup porting Code Source(s) Document(s ) Leukocytes 14.2 4.8-10.6 Above high normal [facility] - [#/volume] in K/uL Good Blood by [facility] Automated count Hospital Erythrocytes 3.43 4.70-6.0 Below low normal [facility] - [#/volume] in M/uL 0 Good Blood by [facility] Automated count Hospital Hemoglobin 10.7 14.0-18. Below low normal [facility] - [Mass/volume] in g/dL 0 [facility] Blood [facility] Hematocrit 33.6 % 42.0-52. Below low normal [facility] - [Volume 0 Good Fraction] of Zoroastrianism Blood by Hospital Automated count Erythrocyte mean 98.0 FL 81.0-94. Above high normal [facility] - corpuscular 0 Good volume [Entitic Zoroastrianism volume] by Hospital Automated count Erythrocyte mean 31.2 PG 27.0-35. [facility] - corpuscular 0 Good hemoglobin Zoroastrianism [Entitic mass] Hospital by Automated count Erythrocyte mean 31.8 30.7-37. [facility] - corpuscular g/dL 3 Good hemoglobin [facility] Hospital [Mass/volume] by Automated count Erythrocyte 16.2 % 11.5-14. Above high normal [facility] - distribution 0 Good width [Ratio] by [facility]oroastrianism Automated count Hospital Platelets 270 K/uL 130-400 [facility] - [#/volume] in Good Blood by [facility]astrianism Automated count Hospital Platelet mean 9.6 FL 9.2-11.8 [facility] - volume [Entitic Good volume] in Blood [facility]ism by Automated Hospital count Segmented 96 % 48.0-72. Above high normal [facility] - neutrophils/100 0 Good leukocytes in [facility]rianism Blood [facility] Lymphocytes/100 3 % 18.0-40. Below low normal [facility] - leukocytes in 0 Good Blood [facility] Hospital Monocytes/100 1 % 2.0-12.0 Below low normal [facility] - leukocytes in [facility] Eosinophils/100 0 % 0.0-7.0 [facility] - leukocytes in [facility] Basophils/100 0 % 0.0-3.0 [facility] - leukocytes in [facility] Segmented 13.6 1.5-6.6 Above high normal [facility] - neutrophils K/UL Good [#/volume] in [facility] Lymphocytes 0.5 K/UL 1.5-3.5 Below low normal [facility] - [#/volume] in [facility] Monocytes 0.1 K/UL 0.0-1.0 [facility] - [#/volume] in [facility] Eosinophils 0.0 K/UL 0.0-0.7 [facility] - [#/volume] in [facility] Basophils 0.0 K/UL 0.0-0.1 [facility] - [#/volume] in [facility] Differential [facility] - cell count [facility] Immature 0 % 0.0-2.0 [facility] - granulocytes/100 [facility] leukocytes in [facility] Hospital Automated count ID Date Data Source [id number] 03/26/2019 07:28:48 AM [facility] Verbal shift change report given to Jacquelny (oncoming nurse) by Brad (offgoingnurse). Report included the following informatio n SBAR, Kardex, ED Summary,Procedure Summary, Intake/Output, MAR and Recent Results. Name Value Range Interpretation Code Description Data [facility] Supporting Document(s ) ID Date Data Source [id number] 03/26/2019 07:23:10 AM [facility] Review BIPAP settings, alarms and skin a dhesive with next shift RT Ofelia DeidreBiPAP wiped down with bleach wipes Name Value Range Interpretation Code Description Data Harriett rce(s) Supporting Document(s ) ID Date Data Source [id number] 03/26/2019 07:16:50 AM EST [facility] Check the patient with RN Brad rodriguez For any skin breakdown while usingthe BiPAP mask. RN aware of two finger tech to mask tightness,and use of maskclips for any interventions Name Value Range Interpretation Code Description Data Harriett rce(s) Supporting Document(s ) ID Date Data Source [id number] 03/26/2019 07:55:13 AM [facility] Name Value Range Interpretation Description Data Sup porting Code Source(s) Document(s ) Sodium 149 40-220 [facility] [Moles/volu MMOL/L [facility]] in Hospital Urine ID Date Data Source [id number] 03/26/2019 07:33:37 AM [facility] Name Value Range Interpretation Description Data Sup porting Code Source(s) Document(s ) Osmolality of 157 136-7977 [facility] Urine MOSM/kg [facility] H2O Hospital ID Date Data Source [id number] 03/26/2019 04:27:35 AM [facility] The history is provided by the EMS pj nava.3:23 AM: Evelio Carlin is a 68 y.o. male with history of COPD, GERD,hyperpar athyroidism, Parkinsonism, pneumonia, schizophrenia, and pulmonaryemboli with a surgical history of gastrostomy who presents to the EmergencyDepartment via emergency medical services sent in from intermediate for hypoxiaand possible pne [facility]. [facility] [place] The patient is nonverbal at baseline and [...] e Gets together: Not on file Attends yarsanism service: Not on file Active m ember [...] 250 mg/5 mL (5 mL) soln oral [id number] mg by Per G Tube route every [...] Supporting Document(s ) ID Date Data Source [id number] 03/26/2019 02:33:48 AM EST [facility] Problem: Pressure Injury - Risk ofGoal: [...] Fall Risk and appropriate interventions in the [facility] et.Outcome: Progressing Towards GoalNote: Fall Risk Interventions:Mentation Interv entions: Adequate sleep, hydration, pain control, Bed/chair exitalarm, Door open when patient unattended, Toileting roundsElimination Interventions: Bed/maggy ir exit alarm, Toileting schedule/hourlyroundsProblem: PainGoal: *Control of PainOutcome: Progressing Towards Goal Name Value Range Interpretation Code Description Data Harriett rce(s) Supporting Document(s ) ID Date Data Source [id number] 03/26/2019 12:36:27 AM [facility] ADMISSION NOTENAME: Evelio Morgan B: 1950MRN: [id number]/Time: 03/25/2019 10:59 PMSubjective:CHIEF COMP LAINT: Acute Respiratory FailureHISTORY OF PRESENT ILLNESS:Evelio is a 68 y.o. m fuentes who presents from [facility] with medical history ofmedical history of Dysphagia, recurrent aspiration pneumonia, s/p g/tconversion to jtube on 02/16/19, hyperlipidemia,hyperparathyroid,unspecif ied,seizure, large hiatal hernia, anxiety disorder, personal history ofpulmonary e mbolus,COPD, GERD, Schizophrenia unspecified, Kyphosis, Parkinsondisease, Severe inte llectual disabilities.and Generalized muscle weakness.As per the intermediate transfe r record, the patient was transferred to the EDfor Hypoxia, he was found with O2 SAT 77 % on O2 NC 4 LPM and tachypneic. Hewas later placed on NRBM. Patient has a vivian gged jtube and the intermediate hasbeen using the gtube site for feedings and administ ration of medications.Pt was seen at [facility] by Dr Motley gi and plans were [...] 5,000 unit/mL injection 1 mL bySubCUTAneous ro [place] every twelve (12) hours every twelve (12) hours. 03/17/19Mili Hills DOmultivi tamin (MULTI-DELYN, WELLESSE) liqd 5 mL by Per G Tube route daily.03/17/19 Mili Hills DOacetaminophen (TYLENOL) 32MG/ML soln solution Take 20.3 mL by mouth ever y four(4) hours as needed for Pain or Fever. 03/17/19 Mili Hills DOvalproic ac id, as sodium salt, (DEPAKENE) 250 mg/5 mL (5 mL) soln oral idmarprr844 mg by Per G Tu be route [...] QTC Calculation (Bezet) 460 ms Calculated P [place] 50 degrees Calculated R [place] -40 degrees Calculated T [place] 68 degrees Diagnosis Sinus rhythmLeft axis deviationProbable latera l infarct, oldConfirmed by Byron Simpson MD ([id number]) on 03/25/2019 7:46:47 PMBLOOD GAS , ARTERIAL [...] PRESSURE SUPPORT 14 RATE 15 Performed by [id number] W/ RFLX ANTONIO ROSCOPIC Collection Time: 03/25/19 [...] Supporting Document(s ) ID Date Data Source [id number] 03/25/2019 05:54:54 PM EST [facility] PULMONARY/ CCM- Consult [facility]Krystian Monae MD., F.C.C.P.Stella Hamilton MD., F.C.C.P. [address] [place] [id number] [place] [address] 109 Patient: Evelio Carlin Sex: male DOA: [...] history of gastrostomy who presents to the [facility] via emergency medical services sent in from intermediate for hypoxiaand possible pneumonia. The patient has [...] 250 mg/5 mL (5 mL) soln oral [id number] mg by Per G Tube route every [...] 24 hrs: BP Temp Pulse Resp SpO2 Kavwsa13/11/19 1640 - - - - 97 % [...] C alculation (Bezet) 460 ms Calculated P [place] 50 degrees Calculated R [place] -40 degrees Calculated T [place] 68 degrees Diagnosis Sinus rhythmLeft axis deviationProbable [...] PRESSURE SUPPORT 14 RATE 15 Performed by [id number] W/ RFLX MICROSCOPIC Collection Time: 03/25/19 4:50 [...] C omponent Value Units Date/Time CULTURE, BLOOD [[id number]] Collected: 03/25/19 0310 Or bassem Status: Completed Specimen: Blood Updated: 03/25/191516 Special Request s: NO SPECIAL REQUESTS Culture result: NO GROWTH AFTER 11 HOURS CULTURE, BLOOD [[id number]] Collected: 03/25/19 0255 Order Status: Completed Specimen: [...] with: CommentsPatient NON V ERBALFamily XRN [facility] Physician X Shift Supervisor: DR HILLS Re comme nded Disposition:Home with [...] Care Provided 75 Minutes non procedure based [facility] jose Monae MD F.C.C.P. Name Value Range Interpretation Code Description Data Harriett rce(s) Supporting Document(s ) ID Date Data Source [id number] 03/25/2019 04:15:49 PM [facility] GI ConsultReferring Physician:Consult Da te: 03/25/2019NAME: Evelio JohnsoninDOB: 1950MRN: [id number]:Reason for Consult: clogged J tubeHistory of Present [...] sodium chloride 250 mL IVPB 1,000 mgIntraVENous J34IJncgel of Systems:Unable to obtainObjective:Physic al Exam:Visit VitalsBP [...] found for: PSA2, PSAR1, PSA1, PSAR2, PSA3, PAHL0Rwj ResultsComponent Value Date/Time TSH 2.6 40 03/25/2019 [...] C alculation (Bezet) 460 ms Calculated P [place] 50 degrees Calculated R [place] -40 degrees Calculated T [place] 68 degrees Diagnosis Sinus rhythmLeft axis deviationProbable [...] PRESSURE SUPPORT 14 RATE 15 Performed by [id number] W/ RFLX MICROSCOPIC Collection Time: 03/25/19 4:50 [...] K44.9 COPD (chronic obstructive pulmonary dise ase) ([facility]) J44.9 Acute respiratory distress R06.03 Pneumonia J18.9 COPD exacerbati on ([facility]) J44.1 Sepsis due to undetermined organism ([facility]) A41.9 Generalized anxiet y disorder F41.1 Acute respiratory failure with hypoxia ([facility]) J96.01 Pneumonia inv olving right lung J18.9 Hyponatremia E87.1 SOB (shortness of breath) R06.02 Pressu re injury of right heel, stage 2 ([facility]) L89.612 Leg wound, right, initial encou nter S81.801A Acute hypoxemic respiratory failure ([facility]) J96.01The patient was seen in consultation for Dr Hills. Thank you for requestingour consultation on this p atient. Further recommendations pending the above.We will follow with you as needed. Marly Amaya MD Name Value Range Interpretation Code Description Data Harriett rce(s) Supporting Document(s ) ID Date Data Source [id number] 03/25/2019 03:44:51 PM [facility] Infectious Disease ConsultToday's Date: 03/25/2019Admit Date: 03/25/2019Subjective:Date of Consultatio n: March 25, 2019Referring Physician: ReinierLouiefelix is a 68 y.o. male who is being seen for possiblesepsis/pneumonia.Patient with hi story of MR,COPD,recurrent aspirationpneumonia,dysphagia s/p peg pl acement was transferred from the intermediate forrespiratory distress,low oxygen satur ation of 77% on 4 L nasal canula.Patient isnon verbal,lethargic on BiPAP,unable t o provide any history.History obtainedfrom chart review.Patient Was afebrile on ar rival to the ER with elevated wbcof 18,800.Patient Active Problem ListDiagno sis Code 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 COPD (chronic obstructive pulmonary dise ase) ([facility]) J44.9 Acute respiratory distress R06.03 Pneumonia J18.9 COPD exacerbati on ([facility]) J44.1 Sepsis due to undetermined organism ([facility]) A41.9 Generalized anxiet y disorder F41.1 Acute respiratory failure with hypoxia ([facility]) J96.01 Pneumonia inv olving right lung J18.9 Hyponatremia E87.1 SOB (shortness of breath) R06.02 Pressu re injury of right heel, stage 2 ([facility]) L89.612 Leg wound, right, initial encou nter S81.801A Acute hypoxemic respiratory failure ([facility]) J96.01Past Medical History :Diagnosis Date Chronic obstructive pulmonary disease (HCC) Diaphragmatic h ernia without obstruction and without gangrene GERD (gastroesophageal reflux disease) Hyperparathyroidism ([facility]) Mental retardation Parkinsonism due to drug (H CC) Pneumonia Psychiatric disorder schizophrenia Pulmonary emboli ([facility]) S chizophrenia ([facility])History reviewed. No pertinent family history.Social HistoryT [...] 250 mg/5 mL (5 mL) soln oral mevnjytu199 mg by Per G Tube route every [...] QTC Calculation (Bezet) 460 ms Calculated P [place] 50 degrees Calculated R [place] -40 degrees Calculated T [place] 68 degrees Diagnosis Sinus rhythmLeft axis deviationProbable [...] PRESSURE SUPPORT 14 RATE 15 Performed by [id number] W/ RFLX MICROSCOPIC Manuel ection Time: 03/25/19 [...] the axial, sagittal and coronal plane.Utiliz ing curb supervisor algorithm the examination was performed to optimizeimaging [...] was injectedintravenously for the examinatio n. Utilizing curb supervisor algorithm theexamination was performed to optimize imaging [...] CARLIN THIS IS AFINAL REPORT FROM IMAGING RESIDENTIAL SALES REPRESENTATIVE DATE OF SERVICE: 2019-01-21 22:23:43 IMAGES: 1EXAM: [...] ReganD. Please call Imaging On [phone] ([phone]) with questions. This report was electronically signedby: [...] ofthe left upper extremity was performed using [place] r Doppler Flow and DuplexDoppler Spectral sonography. [...] Supporting Document(s ) ID Date Data Source [id number] 03/25/2019 12:34:10 PM [facility] Care Management InterventionsPCP Verifie d by CM: YesMode of Transport at Discharge: [facility])Transition of C are Consult (CM Consult): Discharge PlanningMyChart Signup: NoDischarge Dura ble Medical Equipment: NoPhysical Therapy Consult: NoOccupational Therapy Consult: NoSpeech Therapy Consult: NoCurrent Support Network: Nursing Facility([facility])Plan discussed with Pt/Family/Caregiver: YesFreedom of Choice Offered: YesVeteran Resource Information Provided?: RefusedDischarge LocationDischarge Place ment: [facility] facility(Only)CASE MANAGEMENT PSYCHOSOCIAL ASSE ABPETEEvelio Gabe Admission Date: 03/25/2019MRN: [id number] of : 1950urrent date: 03/25/2019DISCHARGE PLAN: CM met with pt and pt geeta Amaya bedside to discuss dischargeplanning, pt is from [facility] and pt family would like him to return atdischarge. Pt geeta Amaya Pelon thuy and nephew Sandro Perez are the emergencycontacts and will be out of the country for the next few weeks and arerequesting that all call be directed to their answering service [phone]. Ptsmedardo Rincon can also be contacted at [phone]. Per pt geeta Amaya, theywould like pt to be kept in the hospital until th pneumonia is cleared up andwould like a new J-tube inserted once pneumonia is cl eared up, per Joyce cottowill appeal pt's discharge if pt is discharged before pne umonia is cleared up.CM cclinked [place].Patient Information:Patients Pref erred Name: EVELIO(PATIENT IS NON-VERBAL)Patient Arrived Via: Stretche rTransferred from another facility: YesInformation Obtained From: Mother(AND FACILITY)Patient Objects to Receiving Blood: Unknown(NON-VERBAL)MRSA Assessment: No K nown History of MRSAAuditory Impairment: NonePrior Hospital AdmissionsName of the Hospital(s): [facility]: Mili Hills DOAdmitting Provider: ELIAN Gonzalez [facility] INVESTIGATION LIEUTENANT: NAPayor: [place] / [place] A [place] B/ Product Type: Med icare /Secondary Payor: @SECINSGROUPNAME@Acute hypoxemic respira tory failure ([facility]) [J96.01]Patient Active Problem ListDiagnosis Code Paraesophage al hiatal hernia K44.9 COPD (chronic obstructive pulmonary disease) ([facility]) J44 .9 Acute respiratory distress R06.03 Pneumonia J18.9 COPD exacerbation ([facility]) J44.1 Sepsis due to undetermined organism ([facility]) A41.9 Generalized anxiety disorde r F41.1 Acute respiratory failure with hypoxia ([facility]) J96.01 Pneumonia involvin g right lung J18.9 Hyponatremia E87.1 SOB (shortness of breath) R06.02 Pressure i njury of right heel, stage 2 ([facility]) L89.612 Leg wound, right, initial encounter [...] solving and planning: Notes:Cruz dunn coping skills: Notes:Confucianist/Cultural barriers: Notes:If unable to assess or n ot applicable: Notes:Suicide Assessment:Readmit Risk:RRAT Total Score : 28Advanced Care Planning:Confirm Advance Directive: NoneDoes the patient have oth er document types: Other (comment)(NONE)Discussed with the patien t and all questions fully answered. Name Value Range Interpretation Code Description Data Harriett rce(s) Supporting Document(s ) ID Date Data Source [id number] 03/25/2019 09:46:29 AM EST [facility] [id number] [facility] [address] [facility] [address] [phone] Evelio Carlin (Male) [id number] ES I 2 ED Dispo:ADMIT Chief Complaint: Respiratory Distress Diagnosis: Pneumonia of left lower lobe due to infectious organism (HCC) [] Current Providers: Attending: Jenn Neumann; Eloisa Hills Consulting Provider: Eloisa Hills; Carmen Dudley A Primary Nurse: Jenn Castro; ANNA MunroeN: [id number] [id number] - Bshsi [employer] Med[employer] MrnMRN: [id number] [employer] [id number] - Bs hsi Ed Medva Age SexDOB 1950 AGE 68 SEX Male Primary Care Provider: Mili Hills DO Phone: [phone]: (No Known Allergies)Date Reviewed: 03/25/2019Reviewed by: Mili Hills DO - Review CompleteED Provider Notes: No notes of this type exist for this encounter.ED Orders SUSIE SEPSI S BUNDLE INITIATED IN ED [#[id number]] Priority: STAT Class: Hospital Performed Standing Order Inf ormation Remaining Occurrences:0/1 Interval:CONTINUOUS Last released:03/25/2019 Releas ed orders: SatMar 25, 2019 2:41 AM by: JESSIE NEUMANN SEPSIS BUNDLE INITIATED IN E D [#[id number]] Priority: STAT Class: Hospital Performed Released on: 03/25/2019 2:41 AM CHELSIE NO VTE PROPHYLAXIS NEEDED [#[id number]] Priority: STAT Class: Hospital Performed Standing O rder Information Remaining Occurrences:N/A-not released Interval:CONTINUOUS [id number] CULTURE, B LOOD [#[id number]] Priority: STAT Class: ER Collect Specimen Source: Blood Stand ing Order Information Remaining Occurrences:0/1 Interval:NOW Last released:2018 Released orders: SatMar 25, 2019 2:41 AM by: JESSIE NEUMANN [id number] CULTURE, BLOOD [#[id number]] Priority: STAT Class: ER Collect Specimen Source: Blood Stand ing Order Information Remaining Occurrences:0/1 Interval:NOW Last released:2018 Released orders: SatMar 25, 2019 2:41 AM by: JESSIE NEUMANN [id number] CULTURE, BLOOD [#[id number]] Priority: STAT Class: ER Collect Specimen Source: Blood Specime n Collected: 03/25/2019 2:55 AM Resulting Agency: [facility] Test ID: HBCS Re leased on: 03/25/2019 2:41 AM [id number] CULTURE, BLOOD [#[id number]] Priority: STAT C lass: ER Collect Specimen Source: Blood Specimen Collected: 03/25/2019 3:10 AM Resulting Agency: [facility] Test ID: HBCS Released on: 03/25/2019 2:41 AM [id number] LACTIC ACI D [#[id number]] Priority: STAT Class: ER Collect Standing Order Information Remaining Occurrences:0/2 Interval:EVERY 4 HRS Last released:03/25/2019 Released orders : SatMar 25, 2019 6:05 AM by: JESSIE NEUMANN SatMar 25, 2019 2:41 AM by: JESSIE FINK [id number] URINALYSIS W/ RFLX MICROSCOPIC [#[id number]] Priority: STAT Class: E R Collect Standing Order Information Remaining Occurrences:0/1 Interval:ONE TIME Last re leased:03/25/2019 Released orders: SatMar 25, 2019 2:41 AM by: JESSIE NEUMANN [id number] CBC WITH AUTOMATED DIFF [#[id number]] Priority: STAT Class: ER Collect Standing Order Info rmation Remaining Occurrences:0/1 Interval:ONE TIME Last released:03/25/2019 Released orders: SatMar 25, 2019 2:41 AM by: JESSIE NEUMANN [id number] METABOLIC PANEL, COMPREHENSIVE [#[id number]] Priority: STAT Class: ER Collect Standing Order Information Remaining Occurre nces:0/1 Interval:ONE TIME Last released:03/25/2019 Released orders: SatMar 25 2:41 AM by: JESSIE NEUMANN [id number] LACTIC ACID [#[id number]] Priority : STAT Class: ER Collect Specimen Source: Plasma Specimen Collected: 03/25/2019 3:10 AM Resulting Agency: [facility] Test ID: LAC Released on: 03/25/2019 2:41 AM [id number] URINALYSIS W/ RFLX MICROSCOPIC [#[id number]] Priority: STAT Class: ER Collect Specimen Source: Urine Specime n Collected: 03/25/2019 4:50 AM Resulting Agency: [facility] Test ID: UA Rele ased on: 03/25/2019 2:41 AM [id number] CBC WITH AUTOMATED DIFF [#[id number]] Priority: STAT Cla ss: ER Collect Specimen Source: Whole Blood Specimen Collected: 03/25/2019 3:10 AM Resulting Agency: [facility] Test ID: CBCA Released on: 03/25/2019 2:41 AM [id number] METABOLIC PANEL, COMPREHENSIVE [#[id number]] Priority: STAT Class: ER Collect Specimen Source: Plasma Specim en Collected: 03/25/2019 3:10 AM Resulting Agency: [facility] Test ID: MPL Rel eased on: 03/25/2019 2:41 AM [id number] BLOOD GAS, ARTERIAL [#[id number]] Priority: STAT Cl ass: ER Collect Standing Order Information Remaining Occurrences:0/1 Interval:ONE TI ME Last released:03/25/2019 Released orders: SatMar 25, 2019 4:02 AM by: JERICHO CASTRO [id number] BLOOD GAS, ARTERIAL [#[id number]] Priority: STAT Class: ER Collect Rel eased on: 03/25/2019 4:02 AM [id number] BLOOD GAS, ARTERIAL [#[id number]] Priority: Routine Class: ER Collect Resulting Agency: [facility] Test ID: ABGG1 Standing O rder Information Remaining Occurrences:0/1 Released orders: SatMar 25, 2019 4:30 AM by: Hilda singletary Batch Process [id number] BLOOD GAS, ARTERIAL [#[id number]] Priority: Routine Class : ER Collect Specimen Source: Arterial Blood Specimen Collected: 03/25/2019 4:30 AM Resulting Agency: [facility] Test ID: ABGG1 Released on: 03/25/2019 4:30 AM [id number] LACTIC ACI D [#[id number]] Priority: STAT Class: ER Collect Specimen Source: Plasma Specim en Collected: 03/25/2019 7:10 AM Resulting Agency: [facility] Test ID: LAC Rel eased on: 03/25/2019 6:05 AM [id number] RENAL FUNCTION PANEL [#[id number]] Priority: Routine Class: ER Collect Standing Order Information Remaining Occurrences:N/A-not released Interval :DAILY [id number] CBC WITH AUTOMATED DIFF [#[id number]] Priority: Routine Class: ER Collect Standing Order Information Remaining Occurrences:N/A-not released Interval:DAILY [id number] MAGNESIUM [#[id number]] Priority: Routine Class: ER Collect Standing Order Information Remaining Occurrences:N/A-not released Interval:DAILY [id number] STARCH AND PROSIZE MIXER - ED ONLY [# [id number]] Priority: STAT Class: Hospital Performed Standing Order Information Remaining Occurre nces:0/1 Interval:Continuous Last released:03/25/2019 Released orders: SatMar 25 019 2:41 AM by: JESSIE NEUMANN Type: -> Bedside [id number] VITAL SIGNS [#[id number]] Priority: Routine Class: Hospital Performed Standing Order Information Remainin g Occurrences:0/1 Interval:EVERY HOUR Last released:03/25/2019 Released orders : SatMar 25, 2019 2:41 AM by: JESSIE NEUMANN [id number] STRICT I & O [#[id number]] Priority: Routine Class: Hospital Performed Standing Order Information Remainin g Occurrences:0/1 Interval:CONTINUOUS Last released:03/25/2019 Released orders : SatMar 25, 2019 2:41 AM by: JESSIE NEUMANN [id number] NEUROLOGIC STATUS ASSESSMENT [#[id number]] Priority: Routine Class: Hospital Performed Standing Order Information Remainin g Occurrences:0/1 Interval:EVERY HOUR Last released:03/25/2019 Released orders : SatMar 25, 2019 2:41 AM by: JESSIE NEUMANN [id number] STARCH AND PROSIZE MIXER - ED ONLY [#[id number]] Priority: STAT Class: Hospital Performed Type: -> Bedside Released on: 019 2:41 AM [id number] VITAL SIGNS [#[id number]] Priority: STAT Class: H ospital Performed Released on: 03/25/2019 2:41 AM [id number] STRICT I & O [#[id number]] Priority: STAT Class: Hospital Performed Released on: 03/25/2019 2:41 AM [id number] NEUROLOGIC STATUS ASSESSMENT [#[id number]] Priority: STAT Class: Hospital Performed Released on: 03/25 2:41 AM [id number] CARDIAC MONITORING [#[id number]] Priority: STAT Class: H ospital Performed Standing Order Information Remaining Occurrences:0/1 Interval: s 24 Hours Last released:03/25/2019 Released orders: SatMar 25, 2019 7:13 AM by: MILI HILLS Type: -> Bedside [id number] CARDIAC MONITORING [#[id number]] Priority: STAT C lass: Hospital Performed Type: -> Bedside Released on: 03/25/2019 7:13 AM [id number] VITAL SIGN S PER UNIT ROUTINE [#[id number]] Priority: STAT Class: Hospital Performed Standing Order Inf ormation Remaining Occurrences:N/A- not released Interval:CONTINUOUS Comment:More freq uently if Indicated. [id number] BEDREST, COMPLETE [#[id number]] Priority: STAT Class: H ospital Performed Standing Order Information Remaining Occurrences:N/A-not released Interval :CONTINUOUS [id number] NOTIFY PROVIDER: VITAL SIGNS CHANGES [#[id number]] Priority: STAT Class: H ospital Performed Standing [...] Less than 120 ml in 4 hours [id number] APPLY/M AINTAIN SEQUENTIAL COMPRESSIO* [#[id number]] Priority: STAT Class: Hospital Performed Standing Order Inf ormation Remaining Occurrences:N/A- not released Interval:CONTINUOUS [id number] XR CHEST P ORT [#[id number]] Priority: STAT Class: Hospital Performed Standing Order Inf ormation Remaining Occurrences:0/1 Interval:ONE TIME Last released:03/25/2019 Released orders: SatMar 25, 2019 2:41 AM by: JESSIE NEUMANN Reason for Exam -> Sepsis [id number] XR CHEST PORT [#[id number]] Priority: STAT Class: Hospital Performed Specimen Co llected: 03/25/2019 7:34 AM Resulting Agency: [facility] Test ID: [id number] Reason for Exam -> Sepsis Released on: 03/25/2019 2:41 AM [id number] EKG, 12 LEAD, INITIAL [#[id number]] Priority: STA T Class: Hospital Performed Standing Order Information Remaining Occurrences:0/1 Inter seema:ONE TIME Last released:03/25/2019 Released orders: SatMar 25, 2019 2:41 AM by: JESSIE ZHENG Reason for Exam: - > Sepsis [id number] EKG, 12 LEAD, INITIAL [#[id number]] Priority: STAT Class: Hospital Performed Resulting Agency: [facility] Test ID: [id number] Reason for E xam: -> Sepsis Released on: 03/25/2019 2:41 AM IVT11 SALINE LOCK IV [#[id number]] Priority: STAT Class: Hospital Performed Standing Order Information Remaining Occurrences:0 /1 Interval:ONE TIME Last released:03/25/2019 Released orders: SatMar 25, 2019 2:41 AM by: JESSIE NEUMANN IVT11 SALINE LOCK IV [#[id number]] Priority: STAT Class: Hospital Performed Released on: 03/25/2019 2:41 AM SODIUM CHLORIDE 0.9 % IJ SYRG [#[id number]] Priority: STAT Class: Normal SODIUM CHLORIDE 0.9% BOLUS IV [#[id number]] Priority: STAT Class: Normal SODIUM CHLORIDE 0.9% BOLUS IV [#[id number]] Priorit y: STAT Class: Normal CEFEPIME 1 GRAM IVPB MBP [#[id number]] Priority: STAT Class: N ormal Antibiotic Indications -> Pneumonia (HAP) IPRATROPIUM-ALBUTEROL 2.5 MG-0.5 MG/* [# [id number]] Priority: STAT Class: Normal MODE OF DELIVERY -> Nebulizer CEFEPIME 1 GRAM IVPB MBP [#[id number]] Priority: STAT Class: Normal Antibiotic Indications -> Pneumonia (HAP ) HAP duration of therapy -> 7 days VANCOMYCIN IVPB < 1.5 GM [#[id number]] Prio rity: STAT Class: Normal Antibiotic Indications -> Pneumonia (HAP) HAP duration of therapy -> Ot her Cmt: once ACETAMINOPHEN (TYLENOL) SOLUTION 32M* [#[id number]] Priority: STAT Class: N ormal ACETYLCYSTEINE 10 % (100 MG/ML) SOLN [#[id number]] Priority: STAT Class: Normal MODE OF DELIVERY -> Nebulizer BUDESONIDE 0.5 MG/2 ML NEB SUSPENSION [#[id number]] Priority: STA T Class: Normal MODE OF DELIVERY - > Nebulizer CINACALCET 30 MG TAB [# [id number]] Priority: STAT Class: Normal ALPRAZOLAM 0.25 MG TAB [#[id number]] Pr iority: STAT Class: Normal HEPARIN (PORCINE) 5,000 UNIT/ML IJ S* [#[id number]] Priority: STAT Cl ass: Normal LAMOTRIGINE 25 MG TAB [#[id number]] Priority: STAT Class: N ormal MULTIVITAMIN TAB [#[id number]] Priority: STAT Class: Normal VALPROIC ACID ( SODIUM SALT) 250 M* [#[id number]] Priority: STAT Class: Normal METHYLPREDNISOLO NE (PF) 40 MG/ML IJ * [#[id number]] Priority: STAT Class: Normal SODIUM CHLORIDE 0.9 % IV [#[id number]] Priority: STAT Class: Normal MULTIVITAMIN-FOLIC ACID-HERBAL NO.27* [# [id number]] Priority: STAT Class: Normal ALPRAZOLAM 0.25 MG TAB [#[id number]] Pr iority: STAT Class: Normal CEFEPIME 1 GRAM IVPB MBP [#[id number]] Priority: STAT Clas s: Normal Antibiotic Indications -> Pneumonia (HAP) HAP duration of therapy -> 7 days [id number] NON-INVASIVE POSITIVE PRESSURE VENTI* [#[id number]] Priority: STAT Class: Hospital Performed Standing Or bassem Information Remaining Occurrences:0/1 Interval:Continuous Last released :03/25/2019 Released orders: SatMar 25, 2019 4:02 AM by: CAROLE CASTRO Type -> A dult/Pediatric Indication for use - > Acute Have the absolute and relative contraindications for NIPPV beenconsidered (hyperlink above)? -> Yes Mode -> Bi-Level [id number] NON-INVASIVE POSITIVE PRESSURE VENTI* [#[id number]] Priority: STAT Class: Hospital Performed Type -> Adult/Pediatric Indication for use -> Acute Have the absolute and relative contraindications for NIPPV beenconsidered (hyperlink above)? -> Yes Mode -> Bi-Level Released on: 03/25/2019 4:02 AM CON3 IP CONSULT TO FAMILY PRACTICE [#[id number]] Priority: STAT Class: Hospital Performed Standing Order Information Remaining Occurre nces:0/1 Interval:ONE TIME Last released:03/25/2019 Released orders: SatMar 25 5:53 AM by: JESSIE NEUMANN Reason for Consult: -> admission Did you call or speak to the consulting provider? -> No Consult To -> Reinier Schedule When? -> TODAY CON3 IP CONSULT TO [facility] [#[id number]] Priority: STAT Class: Hospital Performed Comment:Dr Neumann spoke w Dr Hills Reason for Consult: -> admission Did you call or speak to the consulting provider? -> No Consult To -> Reinier Schedule When? -> TODAY Released on: 03/25/2019 5:53 AM CON5 IP CONSULT TO INFECTIOUS DISEASES [#[id number]] Priority: Routine Class: Hospital Performed Standing Order Inf ormation Remaining Occurrences:0/1 Interval:ONE TIME Last released:03/25/2019 Released orders: SatMar 25, 2019 7:25 AM by: MILI HILLS Reason for Consult: -> possible sepsis/p neumonia Did you call or speak to the consulting provider? -> No Consult To -> Dr Dudley Schedule W hen? -> TODAY CON5 IP CONSULT TO INFECTIOUS DISEASES [#[id number]] Priority: Routine Class : Hospital Performed Comment:INFECTIOUS DISEASE: Dr. Dudley's service called today's consult. Reason for Consult: -> possible sepsis/pneumonia Did you call or speak to the consulting provider? -> No Consult To -> Dr Dudley Schedule When? -> TODAY Released on: 03/25/2019 7:25 AM [id number] INITIAL PHYSICIAN ORDE R: INPATIENT [#[id number]] Priority: Routine Class: ADT Pend Transfer Standing Order Information Remaining Occurrences:0/1 Interval:ONE TIME Last released:03/25/2019 Released orders : SatMar 25, 2019 7:13 AM by: MILI HILLS Status: -> INPATIENT Inpatient Hospitalizat ion Certified [...] -> Extended Care Facility (e.g. Adult Home, Jail, etc.) [id number] INITIAL PHYSICIAN ORDER: INPATIENT [#[id number]] Devin foley: Routine Class: ADT Pend Transfer [...] -> Extended Care Facility (e.g. Adult Home, Jail, etc.) Released on: 03/25/2019 7:13 AM CON54 IP CONSULT TO PULMONOLOGY [#[id number]] Priority: Routine Class: Hospital Performed Standing Order Information Josie medina Occurrences:0/1 Interval:ONE TIME Last released:03/25/2019 Released orders : SatMar 25, 2019 7:27 AM by: MILI HILLS Reason for Consult: -> acute hypoxic respiratro y failure/pneumonia Did you call or speak to the consulting provider? -> No Consult To -> Dr Sa damian Schedule When? -> TODAY CON54 IP CONSULT TO PULMONOLOGY [#[id number]] Priority: Rout ine Class: Hospital Performed Comment:Dr Jasmin Howell @ [facility] called with today's consult / Dr Flores [facility] Reason for Consult: -> acute hypoxic respiratroy failure/pneumonia Did you call or s peak to the consulting provider? -> No Consult To -> Dr Nolen Schedule When? -> TODAY Released on: 03/25/2019 7:27 AM COD2 FULL CODE [#[id number]] Priority: STAT Class: H ospital Performed Standing Order Information Remaining Occurrences:N/A-not released Interval :Evelio Hightower MR#: [id number] * Rm: 341-02Ht: Wt: 1 20 lb Code: Prior Iso:Diagnosis:Acute hypoxemic respiratory failure (HCC) [J96.01]Allerg ies: No Known Allergies -------- Current as of: 03/25/19 0946 GI=Given IC=IV Complet ed CA=Missed NB=New Bag --albuterol-ipratropium (DUO-NEB) 2.5 MG-0.5 MG/3 ML #[id number] Admin Amount: 3 mL Ordered Dose: 3 mL Route: Nebulization Freq: NOW Start Date: 11/07/18 No administration times (back 96 hours, ahead 96 hours). ------methylPREDNISolone (PF) (Solu-MEDROL) injection 125 mg #[id number] Admin Amount: 2 mL = 125 mg of 125 mg/2 mL Ordered Dose: 125 mg Route: Int raVENous Freq: NOW Start Date: 11/07/18 No administration times (back 96 hours, ahe ad 96 hours). ------cefTRIAXone (ROCEPHIN) 1 g in 0.9% sodium chloride (MBP/ADV) 50 m L M*#[id number] Admin Amount: 1 g Ordered Dose: 1 g Route: IntraVENous Freq: NOW Start Date: 11/07/18 Rate: 100 mL/hr Duration: 30 Minutes No administration times (back 96 hours, ahead 96 hours). ------azithromycin (ZITHROMAX) 500 mg in NS 250 mL #[id number] Admin Amount: 250 mL = 500 mg of 500 mg/250 mL Ordered Dose: 500 mg Route: Int raVENous Freq: NOW Start Date: 11/07/18 Rate: 250 mL/hr Duration: 6 0 Minutes No administration times (back 96 hours, ahead 96 hours). ------iopamidol (ISOVUE-370) 76 % injection 100 mL #[id number] Admin Amount: 100 mL Ordered Dose: 100 mL Route: IntraVENous Freq: RAD ONCE Start Date: 11/07/18 No administration times (back 96 hours, ahead 96 hours). ------sodium chloride 0.9 % bolus infusion 500 mL #[id number] Admin Amount: 500 mL Ordered Dose: 500 mL Route: IntraVENo us Freq: ONCE Start Date: 11/08/18 Rate: 666.7 mL/hr Duration: 45 Danielle tasha No administration times (back 96 hours, ahead 96 hours). ------ALPRAZolam (XANAX) tablet 0.25 mg #[id number] Admin Amount: 1 Tab (1 x 0.25 mg Tab) Ordered Dose: 0.25 mg Route: Oral Dg q: DAILY Start Date: 11/08/18 No administration times (back 96 hours, ahead 96 hours).Evelio Garnett MR#: [id number] * Rm: 341-02Ht: Wt: 120 lb Cod e: Prior Iso:Diagnosis:Acute hypoxemic respiratory failure (HCC) [J96.01]Allergies: No Known Allergies -------- Current as of: 03/25/19 0946 GI=Given IC=IV Complet ed CA=Missed NB=New Bag --cefTRIAXone (ROCEPHIN) 1 g in 0.9% sodium chloride (MBP/ADV) 50 mL M*# [id number] Admin Amount: 1 g Ordered Dose: 1 g Route: IntraVENous Freq: EVERY 24 HOURS Start Date: 11/08/18 Rate: 100 mL/hr Duration: 30 Minutes No administration times (back 96 hours, ahead 96 hours). ------azithromycin (ZITHROMAX) 500 mg in 0.9% sodium chloride 250 mL IV PB #[id number] Admin Amount: 500 mg Ordered Dose: 500 mg Route: IntraVENous Freq: EVERY 24 H OURS Start Date: 11/08/18 Rate: 250 mL/hr Duration: 60 Minutes No administration times (back 96 hours, ahead 96 hours). ------LORazepam (ATIVAN) injection 0.5 mg #[id number] Admin Amount: 0.25 mL = 0.5 mg of 2 mg/mL Ordered Dose: 0.5 mg Ro shoalwater: IntraVENous Freq: ONCE Start Date: 11/10/18 No administration times (back 96 hours, ahead 96 hours). ------LORazepam (ATIVAN) injection 2 mg #[id number] Admin Amount: 1 mL = 2 mg of 2 mg/mL Ordered Dose: 2 mg Route: Int raVENous Freq: ONCE Start Date: 11/11/18 No administration times (back 96 hours, ahe ad 96 hours). ------LORazepam (ATIVAN) injection 0.5 mg #[id number] Admin Amount: 0.25 mL = 0.5 mg of 2 mg/mL Ordered Dose: 0.5 mg Ro sho[place]: IntraVENous Freq: ONCE Start Date: 11/11/18 No administration times (back 96 hours, ahead 96 hours). ------acetaminophen (OFIRMEV) infusion 1,000 mg #[id number] Admin Amount: 100 mL = 1,000 mg of 1,000 mg/100 mL Ordered Dose: 1,000 mg Ro shoal[place]: IntraVENous Freq: EVERY 6 HOURS Start Date: 11/17/18 Rate: 400 mL/hr Durat ion: 15 Minutes No administration times (back 96 hours, ahead 96 hours). ------HYDROmorphone (DILAUDID) syringe 0.5 mg #[id number] Admin Amount: 0.5 mL = 0.5 mg of 0.5 mg/0.5 mL Ordered Dose: 0.5 mg Route: Int raVENous Freq: EVERY 6 HOURS NEEDED Start Date: 11/17/18 No administration times (back 96 hours, ahe ad 96 hours).Evelio Carlin MR#: [id number] * Rm: 341-02Ht: Wt: 1 20 lb Code: Prior Iso:Diagnosis:Acute hypoxemic respiratory failure (HCC) [J96.01]Allerg ies: No Known Allergies -------- Current as of: 03/25/19 0946 GI=Given IC=IV Complet ed CA=Missed NB=New Bag --acetaminophen (OFIRMEV) infusion 1,000 mg #[id number] Admin Amount: 100 mL = 1,000 mg of 1,000 mg/100 mL Ordered Dose: 1,000 mg Ro shoal[place]: IntraVENous Freq: EVERY 6 HOURS Start Date: 11/18/18 Rate: 400 mL/hr Durat ion: 15 Minutes No administration times (back 96 hours, ahead 96 hours). ------piperacillin-tazobactam (ZOSYN) 3.375 g in 0.9% sodium chloride (MBP*#[id number] Admin Amount: 3.375 g Ordered Dose: 3.375 g Route: IntraVENous Freq: EVERY 8 HOURS Start Date: 11/18/18 Rate: 25 mL/hr Duration: 240 Minutes No administrati on times (back 96 hours, ahead 96 hours). ------potassium chloride 10 mEq in 100 ml IVPB #[id number] Admin Amount: 100 mL = 10 mEq of 10 mEq/100 mL Ordered Dose: 10 mEq Route: Int raVENous Freq: EVERY 1 HOUR Start Date: 11/19/18 Rate: 100 mL/hr Duration: 6 0 Minutes No administration times (back 96 hours, ahead 96 hours). ------diatrizoate tiffani-diatrizoat sod (RUTHYGASTROVIEW,GASTRO GRAFIN) 66-10 % *#[id number] Admin Amount: 30 mL Ordered Dose: 30 mL Route: Oral Freq: RAD O NCE Start Date: 11/19/18 No administration times (back 96 hours, ahead 96 hours). ------acetaminophen (OFIRMEV) infusion 1,000 mg #[id number] Admin Amount: 100 mL = 1,000 mg of 1,000 mg/100 mL Ordered Dose: 1,000 mg Ro shoal[place]: IntraVENous Freq: EVERY 6 HOURS Start Date: 11/21/18 Rate: 400 mL/hr Durat ion: 15 Minutes No administration times (back 96 hours, ahead 96 hours). ------acetaminophen (OFIRMEV) infusion 1,000 mg #[id number] Admin Amount: 100 mL = 1,000 mg of 1,000 mg/100 mL Ordered Dose: 1,000 mg Ro shoal[place]: IntraVENous Freq: EVERY 6 HOURS Start Date: 11/22/18 Rate: 400 mL/hr Durat ion: 15 Minutes No administration times (back 96 hours, ahead 96 hours). ------LORazepam (ATIVAN) tablet 0.5 mg #[id number] Admin Amount: 1 Tab (1 x 0.5 mg Tab) Ordered Dose: 0.5 mg Route: Per G Tube F req: EVERY BEDTIME Start Date: 11/23/18 No administration times (back 96 hours, ahead 96 hours).Evelio Garnett MR#: [id number] * Rm: 341-02Ht: Wt: 120 lb Cod e: Prior Iso:Diagnosis:Acute hypoxemic respiratory failure (HCC) [J96.01]Allergies: No Known Allergies -------- Current as of: 03/25/19 0946 GI=Given IC=IV Complet ed CA=Missed NB=New Bag --vancomycin (VANCOCIN) 1,250 mg in 0.9% sodium chloride 250 mL IVPB #[id number] Admin Amount: 1,250 mg Ordered Dose: 1,250 mg Route: IntraVENous Freq: EVERY 12 HO URS Start Date: 11/24/18 Rate: 125 mL/hr Duration: 120 Minutes No administration times (back 96 hours, ahead 96 hours). ------potassium chloride (KLOR-CON) packet for solution 20 mEq #[id number] Admin Amount: 1 Packet (1 x 20 mEq Packet) Ordered Dose: 20 mEq Ro shoalwater: Oral Freq: 2 TIMES DAILY WITH MEALS Start Date: 11/25/18 No administration times (back 96 hours, ahe ad 96 hours). ------piperacillin-tazobactam (ZOSYN) 3.375 g in 0.9% sodium chloride (MBP*#[id number] Admin Amount: 3.375 g Ordered Dose: 3.375 g Route: IntraVENous Freq: NOW Start Date: 12/12/18 Rate: 200 mL/hr Duration: 30 Minutes No administrati on times (back 96 hours, ahead 96 hours). ------albuterol-ipratropium (DUO-NEB) 2.5 MG-0.5 MG/3 ML #[id number] Admin Amount: 3 mL Ordered Dose: 3 mL Route: Nebulization Freq: NOW Start Date: 12/12/18 No administration times (back 96 hours, ahead 96 hours). ------methylPREDNISolone (PF) (Solu-MEDROL) injection 125 mg #[id number] Admin Amount: 2 mL = 125 mg of 125 mg/2 mL Ordered Dose: 125 mg Route: Int raVENous Freq: NOW Start Date: 12/12/18 No administration times (back 96 hours, ahe ad 96 hours). ------albuterol-ipratropium (DUO-NEB) 2.5 MG-0.5 MG/3 ML #[id number] Admin Amount: 3 mL Ordered Dose: 3 mL Route: Nebulization Freq: NOW Start Date: 12/12/18 No administration times (back 96 hours, ahead 96 hours). ------albuterol-ipratropium (DUO-NEB) 2.5 MG-0.5 MG/3 ML #[id number] Admin Amount: 3 mL Ordered Dose: 3 mL Route: Nebulization Freq: NOW Start Date: 12/12/18 No administration times (back 96 hours, ahead 96 hours).Ivelisse Carlin MR#: [id number] * Rm: 341-02Ht: Wt: 120 lb Code: Prior Iso:Diagnosis:Acute hypoxemic respiratory failure (HCC) [J96.01]Allergies: No Known Allergies -------- Current as of: 03/25/19 0946 GI=Given IC=IV Complet ed CA=Missed NB=New Bag -- Followed by [facility] (Order count: 2)sodium chloride 0.9 % jeff aspen infusion 1,000 mL #[id number] Admin Amount: 1,000 mL Ordered Dose: 1,000 [...] chloride 0.9 % bolus infusion 593 mL #[id number] Admin Amount: 593 mL Ordere d Dose: 593 mL Route: IntraVENous Freq: ONCE Start Date: 12/12/18 No adm inistration times (back 96 hours, ahead 96 hours). ------iopamidol (ISOVUE-370) 76 % injection 125 mL #[id number] Admin Amount: 125 mL Ordered Dose: 125 mL Route: IntraVENous Freq: RAD ONCE Start Date: 12/17/18 No administration times (back 96 hours, ahead 96 hours). ------lidocaine (XYLOCAINE) 20 mg/mL (2 %) injection 100 mg #[id number] Admin Amount: 5 mL = 100 mg of 2,000 mg/100 mL Ordered Dose: 5 mL Route: IntraDERMal Freq: ONCE Start Date: 12/19/18 No administration times (b ack 96 hours, ahead 96 hours). ------oxyCODONE-acetaminophen (PERCOCET) 5-325 mg per tablet 1 Tab #[id number] Admin Amount: 1 Tab Ordered Dose: 1 Tab Route: Oral Freq: EVERY 8 HOURS NEEDED Start Date: 12/19/18 No administration times (back 96 hours, ahead 96 hours). ------furosemide (LASIX) injection 20 mg #[id number] Admin Amount: 2 mL = 20 mg of 10 mg/mL Ordered Dose: 20 mg Ro [place]: IntraVENous Freq: ONCE Start Date: 12/26/18 No administration times (back 96 hours, ahead 96 hours). ------furosemide (LASIX) injection 20 mg #[id number] Admin Amount: 2 mL = 20 mg of 10 mg/mL Ordered Dose: 20 mg Route: Int raVENous Freq: ONCE Start Date: 12/29/18 No administration times (back 96 hours, ahe ad 96 hours).Evelio Carlin MR#: [id number] * Rm: 341-02Ht: Wt: 1 20 lb Code: Prior Iso:Diagnosis:Acute hypoxemic respiratory failure (HCC) [J96.01]Allerg ies: No Known Allergies -------- Current as of: 03/25/19 0946 GI=Given IC=IV Complet ed CA=Missed NB=New Bag --albuterol-ipratropium (DUO-NEB) 2.5 MG-0.5 MG/3 ML #[id number] Admin Amount: 3 mL Ordered Dose: 3 mL Route: Nebulization Freq: NOW Start Date: 01/10/19 No administration times (back 96 hours, ahead 96 hours). ------methylPREDNISolone (PF) (Solu-MEDROL) injection 125 mg #[id number] Admin Amount: 2 mL = 125 mg of 125 mg/2 mL Ordered Dose: 125 mg Route: Int raVENous Freq: NOW Start Date: 01/10/19 No administration times (back 96 hours, ahe ad 96 hours). ------albuterol-ipratropium (DUO-NEB) 2.5 MG-0.5 MG/3 ML #[id number] Admin Amount: 3 mL Ordered Dose: 3 mL Route: Nebulization Freq: NOW Start Date: 01/10/19 No administration times (back 96 hours, ahead 96 hours). ------acetaminophen (TYLENOL) tablet 650 mg #[id number] Admin Amount: 2 Tab (2 x 325 mg Tab) Ordered Dose: 650 mg Route: Per G Tub e Freq: NOW Start Date: 01/10/19 No administration times (back 96 hours, ahe ad 96 hours). ------piperacillin-tazobactam (ZOSYN) injection 3.375 g #[id number] Admin Amount: 3.375 g Ordered Dose: 3.375 g Route: IntraVENous Freq: NOW Start Date: 01/10/19 No administration times (back 96 hours, ahead 96 hours). ------vancomycin (VANCOCIN) 1,000 mg in 0.9% sodium chloride 250 mL IVPB #[id number] Admin Amount: 1,000 mg Ordered Dose: 1,000 mg Route: IntraVENous Freq: ONCE Start Date: 01/10/19 Rate: 125 mL/hr Duration: 120 Minutes No administ ration times (back 96 hours, ahead 96 hours). ------ Followed by [facility] (Order count: 2)sodium chloride 0. 9 % bolus infusion 1,000 mL #[id number] Admin Amount: 1,000 mL Ordered Dose: 1,000 mL Route: IntraVENous Freq: ONCE Start Date: 01/10/19 No administration t imes (back 96 hours, ahead 96 hours).Evelio Carlin MR#: [id number] * Rm: 34 02Ht: Wt: 120 lb Code: Prior Iso:Diagnosis:Acute hypoxemic respirator y failure (HCC) [J96.01]Allergies: No Known Allergies -------- Current as of: 03/25/19 0946 GI=Given IC=IV Complet ed CA=Missed NB=New Bag - Followed by - - - - - - - - - - - - - - - - - - - - - - - - - - - - - - - -sodiu m chloride 0.9 % bolus infusion 551 mL #[id number] Admin Amount: 551 mL Ordere d Dose: 551 mL Route: IntraVENous Freq: ONCE Start Date: 01/10/19 No adm inistration times (back 96 hours, ahead 96 hours). ------0.9% sodium chloride (MBP/ADV) infusion #[id number] Ordered Dose: Route: Freq: Start Date: No administration times (back 96 hours, ahead 96 hours). ------influenza vaccine (65 yrs+)(PF) (FLUZONE HIGH-DOSE) inject io*#[id number] Admin Amount: 0.5 mL Ordered Dose: 0.5 mL Route: IntraMUSCular Freq: PRIOR TO DISCHARGE Start Date: 01/10/19 No administration times (back 96 hours, ahead 96 hours). ------piperacillin-tazobactam (ZOSYN) 3.375 g in 0.9% sodium chloride (MBP*#[id number] Admin Amount: 3.375 g Ordered Dose: 3.375 g Route: IntraVENous Freq: EVERY 8 HOURS Start Date: 01/10/19 Rate: 25 mL/hr Duration: 240 Minutes No administrat ion times (back 96 hours, ahead 96 hours). ------potassium, sodium phosphates (NEUTRA-PHOS) packet 1 Packet #[id number] Admin Amount: 1 Packet Ordered Dose: 1 Packet Route: Per G Tube Freq: 4 TIMES DAILY Start Date: 01/12/19 No administration times (back 96 hours, ahead 96 hours). ------iopamidol (ISOVUE 300) 61 % contrast injection 100 mL #[id number] Admin Amount: 100 mL Ordered Dose: 100 mL Route: IntraVENous Freq: RAD ONCE Start Date: 01/15/19 No administration times (back 96 hours, ahead 96 hours). ------sodium phosphate 15 mmol in 0.9% sodium chlorid e 250 mL infusion #[id number] Ordered Dose: Route: IntraVENous Freq: ONCE Start Date: 01/20/19 Rate: 63.8 mL/hr Duration: 4 Hours No administration patria es (back 96 hours, ahead 96 hours).Evelio Carlin MR#: [id number] * Rm: 34 04-16Ht: Wt: 120 lb Code: Prior Iso:Diagnosis:Acute hypoxemic respirator y failure (HCC) [J96.01]Allergies: No Known Allergies -------- Current as of: 03/25/19 0946 GI=Given IC=IV Complet ed CA=Missed NB=New Bag --acetaZOLAMIDE SR (DIAMOX) capsule 500 mg #[id number] Admin Amount: 1 Cap (1 x 500 mg Cap) Ordered Dose: 500 mg Route: Oral Freq: O NCE Start Date: 01/23/19 No administration times (back 96 hours, ahead 96 hours). ------albuterol (PROVENTIL VENTOLIN) nebulizer solution 2.5 mg #[id number] Admin Amount: 3 mL = 2.5 mg of 2.5 mg/3 mL Ordered Dose: 2.5 mg Route: Neb ulization Freq: NOW Start Date: 02/08/19 No administration times (back 96 hours, e ad 96 hours). ------albuterol (PROVENTIL VENTOLIN) nebulizer solution 2.5 mg #[id number] Admin Amount: 3 mL = 2.5 mg of 2.5 mg/3 mL Ordered Dose: 2.5 mg Route: Neb ulization Freq: NOW Start Date: 02/08/19 No administration times (back 96 hours, e ad 96 hours). ------ Followed by [facility] (Order count: 2)sodium chloride 0. 9 % bolus infusion 1,000 mL #[id number] Admin Amount: 1,000 mL Ordered Dose: 1,000 [...] chloride 0.9 % bolus infusion 701 mL #[id number] Admin Amount: 701 mL Orde red Dose: 701 mL Route: IntraVENous Freq: ONCE Start Date: 02/08/19 No administration times (back 96 hours, ahead 96 hours). ------cefepime (MAXIPIME) 2 g in 0.9% sodium chloride (MBP/ADV) 100 mL MBP #[id number] Admin Amount: 2 g Ordered Dose: 2 g Route: IntraVENous Freq: NOW Start Date: 02/08/19 Rate: 200 mL/hr Duration: 30 Minutes No administration times (back 96 hours, ahead 96 hours). ------vancomycin (VANCOCIN) 1,000 mg in 0.9% sodium chloride 250 mL IVPB #[id number] Admin Amount: 1,000 mg Ordered Dose: 1,000 mg Route: IntraVENous Freq: ONCE Start Date: 02/08/19 Rate: 125 mL/hr Duration: 120 Minutes No adminis tration times (back 96 hours, ahead 96 hours).Evelio Carlin MR#: [id number] * Rm: 341-02Ht: Wt: 120 lb Code: Prior Iso:Diagnosis:Acute hypoxemic respirator y failure (HCC) [J96.01]Allergies: No Known Allergies -------- Current as of: 03/25/19 0946 GI=Given IC=IV Complet ed CA=Missed NB=New Bag --ALPRAZolam (XANAX) tablet 0.25 mg #[id number] Admin Amount: 1 Tab (1 x 0.25 mg Tab) Ordered Dose: 0.25 mg Route: Per G Tub e Freq: 4 TIMES DAILY NEEDED Start Date: 02/08/19 No administration times (back 96 hours, [facility] ad 96 hours). ------cefepime (MAXIPIME) 2 g in 0.9% sodium chloride (MBP/ADV) 100 mL MBP #[id number] Admin Amount: 2 g Ordered Dose: 2 g Route: IntraVENous Freq: EVERY 8 HOUR S Start Date: 02/09/19 Rate: 200 mL/hr Duration: 30 Minutes No administration times (back 96 hours, ahead 96 hours). ------ALPRAZolam (XANAX) tablet 0.25 mg #[id number] Admin Amount: 1 Tab (1 x 0.25 mg Tab) Ordered Dose: 0.25 mg Route: Per G Tub e Freq: 4 TIMES DAILY NEEDED Start Date: 02/14/19 No administration times (back 96 hours, ahe ad 96 hours). ------propofol (DIPRIVAN) 10 mg/mL injection #[id number] Ordered Dose: Route: Freq: Start Date: 02/16/19 No administration times (back 96 hours, ahead 96 hours). ------midazolam (PF) (VERSED) 1 mg/mL injection #[id number] Ordered Dose: Route: Freq: Start Date: 9 No administration times (back 96 hours, ahead 96 hours). ------albuterol (PROVENTIL VENTOLIN) 2.5 mg /3 mL (0.083 %) nebuliz er river*#[id number] Ordered Dose: Route: Freq: Start Date: 04/18/18 No administration times (back 96 hours, ahead 96 hours). ------albuterol (PROVENTIL VENTOLIN) nebulizer solution 2.5 mg #[id number] Admin Amount: 3 mL = 2.5 mg of 2.5 mg/3 mL Ordered Dose: 2.5 mg Route: Inh alation Freq: NEEDED Start Date: 02/16/19 No administration times (back 96 hours, ahe ad 96 hours). ------ePHEDrine (MISTOLE) 50 mg/mL injection #[id number] Ordered Dose: Route: Freq: Start Date: 02/16/19 No administration times (back 96 hours, ahead 96 hours).Evelio Carlin MR#: [id number] * Rm: 341-02Ht: Wt: 120 lb Code: Prior Iso:Diagnosis:[place] hypoxemic respiratory failure (HCC) [J96.01]Allergies: No Known Allergies -------- Current as of: 03/25/19 0946 GI=Given IC=IV Complet ed CA=Missed NB=New Bag --propofol (DIPRIVAN) 10 mg/mL injection #[id number] Ordered Dose: Route: Freq: Start Date: 02/17/19 No administration times (back 96 hours, ahead 96 hours). ------fentaNYL citrate (PF) 50 mcg/mL injection #[id number] Ordered Dose: Route: Freq: Start Date: No administration times (back 96 hours, ahead 96 hours). ------midazolam (PF) (VERSED) 1 mg/mL injection #[id number] Ordered Dose: Route: Freq: Start Date: 9 No administration times (back 96 hours, ahead 96 hours). ------acetaminophen (TYLENOL) tablet 975 mg #[id number] Admin Amount: 3 Tab (3 x 325 mg Tab) Ordered Dose: 975 mg Route: Oral Dg q: NOW Start Date: 03/11/19 No administration times (back 96 hours, ahead 96 hours). ------vancomycin (VANCOCIN) 1,000 mg in 0.9% sodium chloride 250 mL IVPB #[id number] Admin Amount: 1,000 mg Ordered Dose: 1,000 mg Route: IntraVENous Freq: ONCE Start Date: 03/11/19 Rate: 125 mL/hr Duration: 120 Minutes No adminis tration times (back 96 hours, ahead 96 hours). ------sodium chloride (NS) flush 5-10 mL #[id number] Admin Amount: 5-10 mL Ordered Dose: 5-10 mL Route: IntraVENous Freq: NE EDED Start Date: 03/25/19 No administration times (back 96 hours, ahead 96 hours). ------sodium chloride 0.9 % bolus infusion 1,000 mL #[id number] Admin Amount: 1,000 mL Ordered Dose: 1,000 mL Route: IntraVENous Freq: ONCE Start Date: 03/25/19 Rate: 1,000 mL/hr Duration: 60 Minutes Administrat ion times (back 96 hours, ahead 96 hours): 03/25/19: 0437NB 0653Evelio Radford#: [id number] * Rm: 341-02Ht: Wt: 120 lb Code: Prior Iso:Diagnosis:Acu te hypoxemic respiratory failure (HCC) [J96.01]Allergies: No Known Allergies -------- Current as of: 03/25/19 0946 GI=Given IC=IV Complet ed CA=Missed NB=New Bag --sodium chloride 0.9 % bolus infusion 1,000 mL #[id number] Admin Amount: 1,000 mL Ordered Dose: 1,000 mL Route: IntraVENous Freq: ONCE Start Date: 03/25/19 Rate: 1,000 mL/hr Duration: 60 Minutes Administration ti mes (back 96 hours, ahead 96 hours): 03/25/19: 0324NB 0437IC -----cefepime (MAXIPIME) 1 g in 0.9% sodium chloride (MBP/ADV) 50 mL MBP #[id number] Admin Amount: 1 g Ordered Dose: 1 g Route: IntraVENous Freq: ONCE Start Date: 03/25/19 Rate: 100 mL/hr Duration: 30 Minutes Administration patria es (back 96 hours, ahead 96 hours): 03/25/19: 0710NB 0758IC -----albuterol-ipratropium (DUO-NEB) 2.5 MG-0.5 MG/3 ML #[id number] Admin Amount: 3 mL Ordered Dose: 3 mL Route: Nebulization Freq: EVERY 4 HOURS RESP Start Date: 03/25/19 Administration times (back 96 hours, ahead 96 hours): 03/25/19: 0851G I 119903/26/19: 399 08119903/27/19: 399 08119903/28/19: 0000 0 08119903/29/19: 0000 0400 0800 ---vancomycin (VANCOCIN) 1,000 mg in 0.9% sodium chloride 250 mL IVPB #[id number] Admin Amount: 1,000 mg Ordered Dose: 1,000 mg Route: IntraVENous Freq: ONCE Start Date: 03/25/19 Rate: 125 mL/hr Duration: 120 Minutes Administration t imes (back 96 hours, ahead 96 hours): 03/25/19: 0717MI 0915NB -----acetaminophen (TYLENOL) solution 650 mg #[id number] Admin Amount: 20.3 mL = 650 mg of 325 mg/10.15 mL Ordered Dose: 650 mg Ro [place]: Per G Tube Freq: EVERY 4 HOURS NEEDED Start Date: 03/25/19 No administration times (back 96 hours, ahead 96 hours).Evelio Carlin MR#: [id number] * Rm: 341-02Ht: Wt: 1 20 lb Code: Prior Iso:Diagnosis:Acute hypoxemic respiratory failure (HCC) [J96.01]Allerg ies: No Known Allergies -------- Current as of: 03/25/19945 GI=Given IC=IV Complet ed CA=Missed NB=New Bag --acetylcysteine (MUCOMYST) 100 mg/mL (10 %) nebulizer solution 400 mg # [id number] Admin Amount: 4 mL = 400 mg of 100 mg/mL Ordered Dose: 4 mL Route: Inhalation Fr eq: 2 TIMES DAILY Start Date: 03/25/19 Administration times (back 96 hours, ahead 96 hours): 03/25/19: 89903/26/19: 89903/27/19: 89903/28/19: 89903/29/19: 899 ---budesonide (PULMICORT) 500 mcg/2 ml nebulizer suspension #[id number] Admin Amount: 2 mL = 500 mcg of 500 mcg/2 mL Ordered Dose: 500 mcg Route: Neb ulization Freq: 2 TIMES DAILY Start Date: 03/25/19 Administration times (back 96 hours, e ad 96 hours): 03/25/19: 179903/26/19: 89903/27/19: 89903/28/19: 89903/29/19: 899 ---cinacalcet (SENSIPAR) tablet 60 mg #[id number] Admin Amount: 2 Tab (2 x 30 mg Tab) Ordered Dose: 60 mg Route: Oral Freq: DAILY Start Date: 03/25/19 Administration times (back 96 hours, ahead 96 hours): 03/25/19: 03/26/19: 89903/27/19: 89903/28/19: 89903/29/19: 899 ---heparin (porcine) injection 5,000 Units #[id number] Admin Amount: 1 mL = 5,000 Units of 5,000 Units/mL Ordered Dose: 5,000 Units Ro [place]: SubCUTAneous Freq: EVERY 12 HOURS Start Date: 03/25/19 Administration times (back 96 hours, ahead 96 hours): 03/25/19: 0849GI 192403/26/19: 72403/27/19: 72403/28/19: 72403/29/19: 724Gabe Evelio MR#: [id number] * Rm: 341-02Ht: Wt: 120 lb Code: Prior Iso:Diagnosis:Acute hypoxemic respiratory failure (HCC) [J96.01]Allerg ies: No Known Allergies -------- Current as of: 03/25/1946 GI=Given IC=IV Complet ed CA=Missed NB=New Bag --lamoTRIgine (LaMICtal) tablet 50 mg # [id number] Admin Amount: 2 Tab (2 x 25 mg Tab) Ordered Dose: 50 mg Route: Per G Tube Freq: 2 TIMES DAILY Start Date: 03/25/19 Administration times (back 96 hours, ahead 96 hours): : 89903/26/19: 89903/27/19: 89903/28/19: 89903/29/19: 899 ---valproic acid (as sodium salt) (DEPAKENE) 250 mg/5 mL (5 mL) oral so*#[id number] Admin Amount: 15 mL = 750 mg of 250 mg/5 mL Ordered Dose: 750 mg Route: Per G Tube Freq: EVERY 12 HOURS Start Date: 03/25/19 Administration times (back 96 hours, [facility] ad 96 hours): 03/25/19: 209903/26/19: 89903/27/19: 89903/28/19: 89903/29/19: 899 ---methylPREDNISolone (PF) (SOLU-MEDROL) injection 40 mg #[id number] Admin Amount: 1 mL = 40 mg of 40 mg/mL Ordered Dose: 40 mg Route: IntraVENo us Freq: EVERY 6 HOURS Start Date: 03/25/19 Administration times (back 96 hours, ahe ad 96 hours): 03/25/19: 0849GI 1199 1800 03/26/19: 59903/27/19: 59903/28/19: 59903/29/19: 599 ---0.9% sodium chloride infusion #[id number] Ordered Dose: 70 mL/hr Route: IntraVENous Freq: CONTINUOUS Start Date: 03/25/19 Rate: 70 mL/hr Duration: Administration times (back 96 hours, ahead 96 hours): 03/25/19: 0747BriankristoferEvelio herrera MR#: [id number] * Rm: 341-02Ht: Wt: 120 lb Code: Prior Iso:Diagnosis:Acute hypoxemic respirator y failure (HCC) [J96.01]Allergies: No Known Allergies -------- Current as of: 03/25/19 0946 GI=Given IC=IV Complet ed CA=Missed NB=New Bag --multivit-folic acid-herbal 275 (WELLESSE PLUS) oral liquid 30 mL #[id number] Admin Amount: 30 mL Ordered Dose: 30 mL Route: Per G Tube Freq: DAILY Start Date: 03/25/19 Administration times (back 96 hours, ahead 96 hours): 03/25/19: 55 : 0900 03/27/19: 0903/28/19: 0903/29/19: 0900 ---ALPRAZolam (XANAX) tablet 0.25 mg #[id number] Admin Amount: 1 Tab (1 x 0.25 mg Tab) Ordered Dose: 0.25 mg Route: Per G Tub e Freq: EVERY EVENING Start Date: 03/25/19 Administration times (back 96 hours, ahe ad 96 hours): 03/25/19: 1800 03/26/19: 1800 03/27/19: 1800 03/28/19: 1800 ---cefepime (MAXIPIME) 1 g in 0.9% sodium chloride ( MBP/ADV) 50 mL MBP #[id number] Admin Amount: 1 g Ordered Dose: 1 [...] Name Value Range Interpretation Code Description Data [facility] rce(s) Supporting Document(s ) ID Date Data Source [id number] 03/25/2019 09:14:25 AM [facility] Patient peg tube unable able to flush. [place] paged regarding tube. PriscillaRn given report on patient coming to the un it. Vss. Name Value Range Interpretation Code [facility] ) ID Date Data Source [id number] 03/25/2019 08:00:41 AM [facility] Pt. Admitted to T3 for hypoxemia. Name Value Range Interpretation Code Description Data [facility] rce(s) Supporting Document(s ) ID Date Data Source [id number] 03/25/2019 07:35:22 AM [facility] CHEST one viewHISTORY: Fever. Reflux. Ga strostomy.COMPARISON: [...] Name Value Range Interpretation Code Description Data [facility] rce(s) Supporting Document(s ) ID Date Data Source [id number] 03/25/2019 07:21:21 AM [facility] Bedside and Verbal shift change report carol Mora RN (oncoming nurse) Morgan RN (offgoing nurse). Report included the following information SBAR,ED Summary, MAR and Recent Results. Name Value Range Interpretation Code Description Data [facility] rce(s) Supporting Document(s ) ID Date Data Source [id number] 03/25/2019 12:01:59 PM EST [facility] Name Value Range Interpretation Description Data Sup porting Code Source(s) Document(s ) Cortisol 24.7 4.3-22.4 Above high normal [facility] - Good [Mass/volume ug/dL [facility] ] in Serum Hospital or Plasma --AM peak specimen ID Date Data Source [id number] 03/25/2019 07:48:48 AM EST [facility] Name Value Range Interpretation Description Data Sup porting Code Source(s) Document(s ) Lactate 1.9 0.4-2.0 [facility] - [facility] [Moles/volu MMOL/L [facility]] in Hospital Serum or Plasma ID Date Data Source [id number] 03/25/2019 05:02:01 AM EST [facility] Name Value Range Interpretation Description Data Sup porting Code Source(s) Document(s ) Color of Urine YEL [facility] Appearance of CLEAR [facility] - Urine [facility] Specific gravity 1.020 1.003-1. [facility] - of Urine by 030 [facility] Refractometry [facility] pH of Urine by 8.5 4.6-8.0 Above high normal [facility] - Test strip [facility] Protein NEG [facility] - [Mass/volume] in Good Urine by Test [facility] Glucose NEG [facility] - [Mass/volume] in Good Urine by [facility] Automated test [facility] strip Ketones NEG [facility] - [Presence] in Good Urine by [facility] test [facility] strip Bilirubin.total NEG [facility] - [Presence] in Good Urine [facility] Hemoglobin NEG [facility] - [Presence] in Good Urine by Test [facility] Hospital Urobilinogen 1.0 0.2-1.0 [facility] - [Presence] in EU/dL Good Urine by [facility] Automated test Hospital strip Nitrite NEG [facility] - [Presence] in Good Urine by [facility] Automated test Hospital strip Leukocyte NEG [facility] - esterase Good [Presence] in [facility] Urine by Hospital Automated test strip ID Date Data Source [id number] 03/25/2019 04:31:21 AM EST [facility] - G ood [facility] Name Value Range Interpretation Description Data Sup porting Code Source(s) Document(s ) pH of Arterial 7.43 7.35-7.4 [facility] - Good blood 5 [facility] Carbon dioxide 53 mmHg 32-48 Above high normal [facility] - Good [Partial [facility] pressure] in Hospital Arterial blood Oxygen 86 mmHg 83-108 [facility] - Good [Partial [facility] pressure] in Hospital Arterial blood Carbon 37 19-24 Above high normal [facility] - Good dioxide, total mmol/L [facility] [Moles/volume] [facility] in Arterial blood Bicarbonate 35 21-28 Above high normal [facility] - Go od [Moles/volume] mmol/L [facility] in Arterial Hospital blood Oxygen 99 % 94-98 Above high normal [facility] - Good saturation in [facility] Base excess in 9.1 0-3 Above high normal [facility] - Good Arterial blood mmol/L [facility] by calculation Hospital Body site [facility] - Good [facility] Arterial [facility] - Good patency Wrist [facility] artery --pre Hospital arterial puncture Oxygen gas [facility] - Good flow Oxygen [facility] system Oxygen/Inspire 100.0 % [facility] - Good d gas [facility] Respiratory Hospital system --on ventilator Ventilation [facility] - Good mode [facility] [Identifier] [facility] Ventilator PEEP 7 [facility] - Good Respiratory [facility] Hospital Pressure 14 [facility] - Good support [facility] Hospital Ventilator Respiratory 15 [facility] - Good rate [facility] Service [address] [facility] - Good comment [facility] ID Date Data Source [id number] 03/25/2019 03:23:12 AM EST [facility] RT at the bedside placing pt on Bipap Name Value Range Interpretation Code Description Data Harriett rce(s) Supporting Document(s ) ID Date Data Source [id number] 03/25/2019 03:22:31 AM EST [facility] MD aware of Spo2, per MD have pt placed on Bipap, RT aware. Name Value Range Interpretation Code Description Data Harriett rce(s) Supporting Document(s ) ID Date Data Source [id number] 03/25/2019 01:47:07 PM EST [facility] Name Value Range Interpretation Description Data Sup porting Code Source(s) Document(s ) Urate 3.8 mg/dL 3.5-7.2 [facility] [Mass/volu [facility]] in Hospital Serum or Plasma ID Date Data Source [id number] 03/25/2019 01:47:07 PM [facility] Name Value Range Interpretation Description Data Sup porting Code Source(s) Document(s ) NOLOINC 2.640 0.360-3.7 [facility] - Good uIU/mL [address] [place] [address] This assay result should be used in conj unction with information available from clinical evaluation and other diagnostic procedures. 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: [employer] ID Date Data Source [id number] 03/25/2019 11:39:47 AM EST [facility] Name Value Range Interpretation Description Data Sup porting Code Source(s) Document(s ) Osmolality of 285 280-300 [facility] Serum or MOSM/kg [facility] Plasma H2O Hospital ID Date Data Source [id number] 03/25/2019 03:54:54 AM EST [facility] Name Value Range Interpretation Description Data Sup porting Code Source(s) Document(s ) Lactate 2.0 0.4-2.0 [facility] - Good [Moles/volu MMOL/L [facility]] in Hospital Serum or Plasma ID Date Data Source [id number] 03/25/2019 03:51:51 AM EST [facility] - [facility] Hospital Name Value Range Interpretation Description Data Sup porting Code Source(s) Document(s ) Sodium 135 136-145 Below low normal [facility] - Good [Moles/volume] mmol/L [facility] in Serum or Hospital Plasma Potassium 3.5 3.5-5.1 [facility] - Good [Moles/volume] mmol/L [facility] in Serum or Hospital Plasma Chloride 93 98-107 Below low normal [facility] - Good [Moles/volume] mmol/L [facility] in Serum or Hospital Plasma Carbon 39 21-32 Above high normal [facility] - Good dioxide, total mmol/L [facility] [Moles/volume] Hospital in Serum or Plasma Anion gap in 6 mmol/L 10-20 Below low normal [facility] - Go od Serum or [facility] Plasma Hospital Glucose 95 mg/dL 74-106 [facility] - Good [Mass/volume] [facility] in Serum or Hospital Plasma Urea nitrogen 11 mg/dL 7-18 [facility] - Good [Mass/volume] [facility] in Serum or Hospital Plasma Creatinine 0.48 0.70-1.3 Below low normal [facility] - Good [Mass/volume] mg/dL 0 [facility] in Serum or Hospital Plasma Glomerular >60 [facility] - Good filtration [facility] rate/1.73 sq M Hospital predicted among blacks [Volume Rate/Area] in Serum or Plasma by Creatinine-bas ed formula (MDRD) Glomerular >60 [facility] - Good filtration [facility] rate/1.73 sq M Hospital predicted among non-blacks [Volume Rate/Area] in Serum or Plasma by Creatinine-bas ed formula (MDRD) (NOTE)Estimated GFR is calculated using the Modification of Diet in RenalDisease (MDRD) Study equation, reported for both Americans(GFRAA) and non- Americans (GFRNA), and normalized to 1.7 8s8vdqv surface area. The physician must decide which [...] 8.5-10.1 [facility] - Good Serum or Plasma [facility] ital Bilirubin.total 0.3 mg/dL 0.2-1.0 [facility] - Good [Mass/volume] in Serum or [facility] Plasma Alanine aminotransferase 15 U/L 13-61 [facility] - Good [Enzymatic activity/volume] [facility] in Serum or Plasma Aspartate aminotransferase 11 U/L 15-37 Below low normal [facility] - Good [Enzymatic activity/volume] [facility] in Serum or Plasma by With P-5'-P Alkaline phosphatase 83 U/L 45-117 [facility] - G ood [Enzymatic activity/volume] [facility] in Serum or Plasma Protein [Mass/volume] in 7.1 g/dL 6.4-8.2 [facility] - Good Serum or Plasma [facility] ital Albumin [Mass/volume] in 2.9 g/dL 3.5-4.7 Below low normal [facility] - Good Serum or Plasma by [facility] ospital Bromocresol purple (BCP) dye binding method Globulin [Mass/volume] in 4.2 g/dL 1.7-4.7 [facility] - Good Serum by calculation [facility] Albumin/Globulin [Mass 0.7 0.7-2.8 [facility] - Good Ratio] in Serum or Plasma [facility] ID Date Data Source [id number] 03/25/2019 03:36:36 AM EST [facility] - Good [facility] Name Value Range Interpretation Description Data Sup porting Code Source(s) Document(s ) Leukocytes 18.8 4.8-10.6 Above high normal [facility] - [#/volume] in K/uL Good Blood by [facility] Automated count Hospital Erythrocytes 4.30 4.70-6.0 Below low normal [facility] - [#/volume] in M/uL 0 Good Blood by [facility] Automated count Hospital Hemoglobin 13.5 14.0-18. Below low normal [facility] - [Mass/volume] in g/dL 0 Good Blood [facility] Hematocrit 42.0 % 42.0-52. [facility] - [Volume 0 Good Fraction] of [facility]ism Blood by Hospital Automated count Erythrocyte mean 97.7 FL 81.0-94. Above high normal [facility] - corpuscular 0 Good volume [Entitic Zoroastrianism volume] by Hospital Automated count Erythrocyte mean 31.4 PG 27.0-35. [facility] - corpuscular 0 [facility] hemoglobin Zoroastrianism [Entitic mass] [facility] by Automated count Erythrocyte mean 32.1 30.7-37. [facility] - corpuscular g/dL 3 [facility] hemoglobin Zoroastrianism concentration [facility] [Mass/volume] by Automated count Erythrocyte 16.1 % 11.5-14. Above high normal [facility] - distribution 0 Good width [Ratio] by [facility] Automated count Hospital Platelets 365 K/uL 130-400 [facility] - [#/volume] in [facility] Blood by [facility] Automated count Hospital Platelet mean 9.5 FL 9.2-11.8 [facility] - volume [Entitic Good volume] in [facility] count Segmented 80 % 48.0-72. Above high normal [facility] - neutrophils/100 0 [facility] leukocytes in [facility] Lymphocytes/100 13 % 18.0-40. Below low normal [facility] - leukocytes in 0 [facility] Monocytes/100 7 % 2.0-12.0 [facility] - leukocytes in [facility] Eosinophils/100 0 % 0.0-7.0 [facility] - leukocytes in [facility] Basophils/100 0 % 0.0-3.0 [facility] - leukocytes in [facility] Segmented 15.0 1.5-6.6 Above high normal [facility] - neutrophils K/UL Good [#/volume] in [facility] Lymphocytes 2.5 K/UL 1.5-3.5 [facility] - [#/volume] in [facility] Monocytes 1.3 K/UL 0.0-1.0 Above high normal [facility] - [#/volume] in [facility] Eosinophils 0.0 K/UL 0.0-0.7 [facility] - [#/volume] in [facility] Basophils 0.0 K/UL 0.0-0.1 [facility] - [#/volume] in [facility] Differential [facility] - cell count [facility] method [facility] Immature 0 % 0.0-2.0 [facility] - granulocytes/100 Good leukocytes in [facility] Blood by Hospital Automated count ID Date Data Source [id number] 03/30/2019 06:20:58 AM EST [facility] Name Value Range Interpretation Description Data Sup porting Code Source(s) Document(s ) Service comment [facility] Bacteria [facility] - Good identified [facility] by Culture ID Date Data Source [id number] 03/30/2019 06:20:57 AM EST [facility] Name Value Range Interpretation Description Data Sup porting Code Source(s) Document(s ) Service comment [facility] Bacteria [facility] - Good identified in [facility] specimen by Culture ID Date Data Source [id number] 03/25/2019 02:42:38 AM [facility] Sent from [facility] with difficulty breathing. Duoneb given byEMS with improvement Name Value Range Interpretation Code Description Data Harriett rce(s) Supporting Document(s ) ID Date Data Source [id number] 03/24/2019 08:52:56 PM [facility] The history is provided by the [...] e Gets together: Not on file Attends yarsanism service: Not on file Active m ember [...] Calculation (Bezet) 393 ms Ca lculated P [place] 63 degrees Calculated R [place] 17 degrees Calculated T [place] 6 degrees D iagnosis Sinus tachycardiaBaseline wander in lead(s) [id number], BLOOD Collection Time : 03/11/19 4:14 AMResult [...] 5,000 unit/mL injection 1 mL bySubCUTAneous ro [place] every twelve (12) hours every twelve (12) [...] mg/5 mL (5 m L) soln oral iszblkni582 mg by Per G Tube route every [...] mg daily. Via G tube 12/30/18 Reinier, Mili,DOlamoTRIgine (LAMICTAL) 25 mg t ablet 2 Tabs [...] Name Value Range Interpretation Code Description Data [facility](s) Supporting Document(s ) ID Date Data Source [id number] 03/24/2019 09:31:45 AM [facility] Addendum: Diagnosis of Sepsis was RULED IN. Name Value Range Interpretation Code Description [facility] Document(s ) ID Date Data Source [id number] 03/23/2019 03:24:54 PM [facility] By submitting this query, we are [...] ith hypercapnia andhypoxia, Possiblepneumonia, likely aspiration, Ac [place] COPD and Gastric DistentionTemp 100.5- HR 105- RR 35 wbc 18.6 Lactate 2.5Consultan t documented the following information with no mention of thisdiagnosis in yourdocum entation. Please indicate in your next progress note and/or dischargesummary yo uragreement with data power consultant or provide clarification that this diagnosis is not acurrent condition.Diagnosis: Sepsis Documented by: Dr. Hamilton Location: 03/12 Progress notePLEASE DOCUMENT ANY ADDITIONAL DIAGNOSES AND/OR SPECIFICITY IN THE PROG RESSNOTES AND/OR DISCHARGE SUMMARY. Name Value Range Interpretation Code Description Data Harriett rce(s) Supporting Document(s ) ID Date Data Source [id number] 03/17/2019 10:00:19 PM [facility] Physician Discharge SummaryPatient ID:Lina [id number] y.o.1950dmit date: 03/11/2019Discharge date:Discharge Diagnoses: Principal Diagnosis <principal problem not specified> Active Problems: Pneumonia (11/08/2018) Acute respiratory failure with hypoxia (HCC) (01/10/2019)Consults: Pulmonary/Intensive care and IDHospital Course: Patient who is a 68 yo male who was transferred from [facility] ED with difficulty in breathing, fever, tachypneic [...] treatment as outpatient for his knee contractures.Disposition: longterm care facilityPatient Instructions:Current Discharge Medication ListSTART taking [...] mg/5 mL (5 m L) soln oral laoqxvkd813 mg by Per G Tube route every [...] Supporting Document(s ) ID Date Data Source [id number] 03/17/2019 08:45:18 PM EST [facility] Pt went to [facility] in s table condition with ambulance person. Name Value Range Interpretation Code Description Data Harriett rce(s) Supporting Document(s ) ID Date Data Source [id number] 03/17/2019 06:59:12 PM [facility] Pt to be transferred to SNF, report give n to night RN Pravin Banks RN Name Value Range Interpretation Code Description Data [facility] rce(s) Supporting Document(s ) ID Date Data Source [id number] 03/17/2019 06:32:40 PM [facility] SW went to floor to inquire about patien t's scheduled 7:30 PM transport returnto Only. Floor RN stated that MD is federica oro on d/c order. SW copied chartincluded YUAN and placed in envelope. Name Value Range Interpretation Code Description Data [facility] rce(s) Supporting Document(s ) ID Date Data Source [id number] 03/17/2019 04:27:29 PM [facility] Care Management InterventionsPCP Verifie d by CM: YesMode of Transport at Discharge: BLS([employer] 7:30pm)Current Suppo rt Network: Nursing FacilityPlan discussed with Pt/Family/Caregiver: YesFreedom of Choice Offered: YesVeteran Resource Information Provided?: RefusedDischarge LocationDischarge Placement: Home(Only), RN, Only Liaison, siri [place], and family, sister Joyce all aware and inagreement with plan of discharge to [facility]. [employer] to transportpatient to [facility] today at 7:30pm. Name Value Range Interpretation Code Description Data [facility] Supporting Document(s ) ID Date Data Source [id number] 03/17/2019 12:53:53 PM [facility] PULMONARY/ CCM- Consult NotePatient: Ivelisse Carlin [...] 250 mg/5 mL (5 mL) soln oral [id number] mg by Per G Tube route every [...] (DEPAKENE) 250 mg/5 mL (5 mL) oral bbcegrrg294 mg, 750 mg, Per G Tube, Q12H, Mili Hills DO, 750 mg at 03/17/19916 acetaminophen (TYLENOL) solution 650 mg, 650 mg, Per G Tube, Q4H PRN, Mili Hills DO albu terol-ipratropium (DUO-NEB) 2.5 MG-0.5 MG/3 ML, 3 mL, Nebulization, [id number] Nihal, MD, 3 mL at 03/17/19 0814 [...] 03/17/19 0659 03/17/19 07 - 03/18/19 0659Shift 7664-1837 7963-3283 24 Hour Total 5929-0138 8413-7880 24 Hour TotalINTAKEI.V.(mL/kg/hr) 1050(1.5) 950( 1.4) 2000(1.5) Volume (0.9% sodium chloride infusion) 445 096 2181 Volume (piperaci llin-tazobactam (ZOSYN) 3.375 g in 0.9% sodium chloride(MBP/ADV) 100 mL MBP) 200 100 300 Volume (vancomycin (VANCOCIN) 1,000 mg in 0.9% sodium chloride 250 mL IVPB)2 50 250 500NG/GT 8783 382 8142 Water Flush Volume (mL) (G/J Tube) 340 [...] the last 72 hours.Cultures:No results found for: [employer] SAL[employer]GER SLab ResultsComponent Value Date/Time Culture result: NO [...] Name Value Range Interpretation Code Description Data [facility] rce(s) Supporting Document(s ) ID Date Data Source [id number] 03/17/2019 11:37:22 AM [facility] Bedside and Verbal shift change report g iven to Don Bonilla RN (oncoming nurse)by Yuki Ohara RN (offgoing nurse) . Report included the following information SBAR,Intake/Output, MAR, Recent Results and Cardiac Rhythm SB. Name Value Range Interpretation Code Description Data [facility](s) Supporting Document(s ) ID Date Data Source [id number] 03/17/2019 10:41:17 AM [facility] ID Progress Note03/17/2019Subjective:Siri ent with history of mental retardation,recurrent aspiration pneumon ia wasTransferred from the intermediate for fever of 101.2,increase chestcongestion, wheezing and [...] sodium chloride 250 mL IVPB 1,000 mgIntraVENous V10SQxqs:Re cent Labs 03/16/1907WBC 11.3* 8.6 7.6HGB 14.3 [...] Supporting Document(s ) ID Date Data Source [id number] 03/17/2019 09:34:49 AM EST [facility] YUAN completed. Name Value Range Interpretation Code Description Data Harriett rce(s) Supporting Document(s ) ID Date Data Source [id number] 03/17/2019 08:50:29 AM EST [facility] Progress NotePatient: Evelio Carlin Sex: male DOA: 03/11/2019Date of : 1950 Age: 68 y.o. :[id number]:Reyes Carlin is 68 y.o. male who is [...] [I.V.:2705]Out: 615 0 [Urine:6150]Lab/Data Reviewed:Recent Days:Recent Labs 12/02/395003 03/14/1907WBC 8.6 7.6 8.8HGB 13.9* 12.0* 11.8*HCT [...] 1PH 7.42PCO2 52*PO2 69*HCO3 34*CULTURE, BLOO D [[id number]] (Order [id number])MicrobiologyDate: 03/11/2019 D epartment: [facility] S[facility] Released By/Authorizing:Jessie Neumann MD (auto-released)Specimen Information: Blood Component Value Flag Ref Range Units Sta tusSpecial Requests: FinalNO SPECIAL REQUESTSCulture result: NO GROWTH 5 DAYS CULTURE, BLOOD [[id number]] (Order [id number])MicrobiologyDate: 03/11/2019 D epartment: [facility] Released By/Authorizing:Jessie Nuemann MD (auto-released)Specimen Information: Blood Component Value Flag [...] sodium chloride 250 mL IVPB 1,000 mgIntraVENous W77BUojnfuk ent/Plan:Hospital Problems Date Reviewed: 03/15/2019 Codes Class Noted POA [place] respiratory failure with hypoxia (HCC) ICD-10-CM: J96.01ICD-9-CM: 518.81 2018 Unknown Pneumonia ICD-10-CM: J18.9ICD-9-CM: 486 11/08/2018 UnknownAss essment:Acute Respiratory Failure with hypercapnia and hypoxiaPneumonia- RML, R LLAcute COPDLeukocytosisGastric distentionDysphagia S/P recent g/t conve rsion to jtubeSeizureHyperparathyroidGERD/ Large HHParkinsonismAnxiety disorderSeve re intellectual disabilitiesPlan:Humidified O2/ BIPAP per pulmContinue IV vancomycin and zosyn per IDNebulizersTaper iv steroids per pulmStart TFStrict aspiration precau tionsContinue sea captain lamictal, depakote, clorazepate (xanax) and sensiparFollow c ulturesContinue Mitts restraints.Teofilo Gonzalez 2018Time: 1:09 AM Name Value Range Interpretation Code Description Data Harriett rce(s) Supporting Document(s ) ID Date Data Source [id number] 03/17/2019 11:58:49 AM EST [facility] - Good [facility] Name Value Range Interpretation Description Data Sup porting Code Source(s) Document(s ) Leukocytes 11.3 4.8-10.6 Above high normal [facility] - [#/volume] in K/uL Good Blood by [facility] count Hospital Erythrocytes 4.51 4.70-6.0 Below low normal [facility] - [#/volume] in M/uL 0 Good Blood by [facility] Automated count Hospital Hemoglobin 14.3 14.0-18. [facility] - [Mass/volume] in g/dL 0 Good Blood [facility] Hematocrit 43.1 % 42.0-52. [facility] - [Volume 0 Good Fraction] of [facility] Blood by Hospital Automated count Erythrocyte mean 95.6 FL 81.0-94. Above high normal [facility] - corpuscular 0 Good volume [Entitic Zoroastrianism volume] by Hospital Automated count Erythrocyte mean 31.7 PG 27.0-35. [facility] - corpuscular 0 Good hemoglobin Zoroastrianism [Entitic mass] [facility] by Automated count Erythrocyte mean 33.2 30.7-37. [facility] - corpuscular g/dL 3 Good hemoglobin [facility] concentration Hospital [Mass/volume] by Automated count Erythrocyte 15.8 % 11.5-14. Above high normal [facility] - distribution 0 Good width [Ratio] by [facility] Automated count Hospital Platelets 277 K/uL 130-400 [facility] - [#/volume] in Good Blood by [facility] Automated count Hospital Platelet mean 9.3 FL 9.2-11.8 [facility] - volume [Entitic Good volume] in Blood [facility] by Automated Hospital count Segmented 64 % 48-72 [facility] - neutrophils/100 Good leukocytes in [facility] Blood by Manual Hospital count Lymphocytes/100 27 % 18-40 [facility] - leukocytes in Good Blood by Manual [facility] count Hospital Monocytes/100 8 % 2-12 [facility] - leukocytes in Good Blood by Manual [facility] count Hospital Myelocytes/100 1 % 0 Above high normal [facility] - leukocytes in Good Blood by Manual [facility] count Hospital Nucleated 1.0 PER 0 Above high normal [facility] - erythrocytes/100 100 WBC Good leukocytes [facility]astrianism [Ratio] in Blood Hospital Erythrocyte [facility] - morphology Good finding [facility]rianism [Identifier] in Hospital Blood Platelet [facility] - adequacy Good [Presence] in [facility]ism Blood by Light Hospital microscopy Differential [facility] - cell count Good method - Blood [facility] ID Date Data Source [id number] 03/17/2019 08:31:22 AM EST [facility] Good [facility] Name Value Range Interpretation Description Data Sup porting Code Source(s) Document(s ) Sodium 137 136-145 [facility] - Good [Moles/volume] mmol/L [facility]ism in Serum or Hospital Plasma Potassium 4.0 3.5-5.1 [facility] - Good [Moles/volume] mmol/L [facility]ism in Serum or Hospital Plasma Chloride 99 98-107 [facility] - Good [Moles/volume] mmol/L [facility]ism in Serum or Hospital Plasma Carbon 35 21-32 Above high normal [facility] - Good dioxide, total mmol/L [facility]astrianism [Moles/volume] Hospital in Serum or Plasma Anion gap in 8 mmol/L 10-20 Below low normal [facility] - Go od Serum or [facility] Plasma Hospital Glucose 82 mg/dL 74-106 [facility] - Good [Mass/volume] Zoro[facility]rianism in Serum or Hospital Plasma Urea nitrogen 12 mg/dL 7-18 [facility] - Good [Mass/volume] [facility]rianism in Serum or Hospital Plasma Creatinine 0.41 0.70-1.3 Below low normal [facility] - Good [Mass/volume] mg/dL 0 [facility]ism in Serum or Hospital Plasma Glomerular >60 [facility] - Good filtration Zoroastrianism rate/1.73 sq M Hospital predicted among blacks [Volume Rate/Area] in Serum or Plasma by Creatinine-bas ed formula (MDRD) Glomerular >60 [facility] - Good filtration [facility]rianism rate/1.73 sq M Hospital predicted among non-blacks [Volume Rate/Area] in Serum or Plasma by Creatinine-bas ed formula (MDRD) Calcium 9.8 8.5-10.1 [facility] - Good [Mass/volume] mg/dL [facility]rianism in Serum or Hospital Plasma Phosphate 3.5 2.5-4.9 [facility] - Good [Mass/volume] mg/dL [facility]rianism in Serum or Hospital Plasma Albumin 2.4 g/dL 3.5-4.7 Below low normal [facility] - Good [Mass/volume] Zoroastrianism in Serum or Hospital Plasma by Bromocresol purple (BCP) dye binding method ID Date Data Source [id number] 03/17/2019 08:31:22 AM EST [facility] Name Value Range Interpretation Description Data Sup porting Code Source(s) Document(s ) Magnesium 2.2 mg/dL 1.6-2.6 [facility] - Good [Mass/volume] Zoroastrianism in Serum or Hospital Plasma ID Date Data Source [id number] 03/17/2019 07:27:45 AM [facility] Bedside and Verbal shift change report carol Mirza RN (oncoming nurse) Yves Bonilla RN(offgoing nurse). Report given with SBAR, Kardex, Intake/Output, MAR and RecentResults. Name Value Range Interpretation Code Description Data Harriett rce(s) Supporting Document(s ) ID Date Data Source [id number] 03/17/2019 12:49:27 AM [facility] Problem: Falls - Risk ofGoal: *Absence [...] Supporting Document(s ) ID Date Data Source [id number] 03/16/2019 07:58:48 PM EST [facility] Progress NoteNANTUCKET COTTAGE [facility]OSP[facility] PULMON[facility] ASS[facility]. ,P.C.Krystian Monae MD., F.C.C.P.Stella Hamilton MD., F.C.C.P. 9W 1 [facility] [address] [place] [id number] [place] [address] [phone]: Evelio Carlin Sex: male DOA: [...] a 68 y.o. male who presents from [facility] with medical history ofDysphagia, recurrent aspiration pneumonia, [...] history.Pt [facility], he is lethargic, but easily arousable. Heis [...] 24 hrs: BP Temp Pulse Resp SpO2 Pptblf26/02/19 1544 122/66 98 F (36.7 C) 85 [...] Procedure Component Value Units Date/Time CULTURE, BLOOD [[id number]] Collected: 03/11/19413 Order Status: Completed Specimen: Bloo d Updated: 03/16/19631 Special Requests: NO SPECIAL REQUESTS Culture result: NO GROWTH 5 DAYS CULTURE, BLOOD [[id number]] Collected: 03/11/19413 Order Status: Completed Specimen: Blood [...] dose lowering techniques and is [facility] to [facility] tudy of 01/15/2019. Evaluation of thoracic [...] chlor wade 250 mL IVPB 1,000 mgIntraVENous S42MKjcyyt Problems: Pneumonia (11/09/19 19) Acute respiratory failure with hypoxia (HCC) (01/10/2019)Assessment:1. ACUTE HY PERCAPNIC WITH HYPOXIC RESPIRATORY FAILURE IMPROVING SLOWLY2. ABG 7.42.PCO2 5 3, PO2 69 ON 3 L O23. POSSIBLE PNEUMONIA R M L , R L L , IMPROVED LEFT LUNG4. AC COPD 5. METABOLIC ENCEPHALOPATHY IMPROVING , HE IS MORE AWAKE6. MENTAL RETARDATION7. DYSPHAGIA8. GASTRIC DISTENTION9. [id number]. CHEST X RAY SHOWS COPD , ELEVATED [...] Name Value Range Interpretation Code Description Data [facility](s) Supporting Document(s ) ID Date Data Source [id number] 03/16/2019 07:26:38 PM [facility] Bedside and Verbal shift change report carol pham to Nelson Bonilla RN (oncoming nurse) Mely KNOX RN (offgoing nurse). Report in cluded the following informationSBAR, Kardex, MAR and Recent Results. Name Value Range Interpretation Code Description Data [facility](s) Supporting Document(s ) ID Date Data Source [id number] 03/16/2019 04:35:04 PM [facility] Care Management InterventionsCurrent Sup port Network: Nursing FacilityPlan discussed with Pt/Family/Caregiver: YesFreedom of Choice Offered: YesVeteran Resource Information Provided?: RefusedDischarge LocationDischarge Placement: Home(Only)CASE MANAGEMENT PSYCHOSOCIAL ASSE Jose Carlin Admission Date: 03/11/2019MRN: [id number] of : 1950urrent date: 03/16/2019DISCHARGE PLAN: Patient is a 68-year-old male admitted to [facility] on 03/11/2019 withinitial diagnosis of acut e respiratory failure with hypoxia and pneumonia.Patient profound MRDD. 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 He remains a full code. CM CCLINKD to [facility] and alerted Liaison. CM will follow. Joyce to be notified upondischarge of her brother.Patient Information:Patie nts Preferred Name: ?evelio(evelio)Patient Arrived Via: StretcherTransferred from a [facility] facility: YesInformation Obtained From: Unable to obtainPatient Objects to Receiving Blood: UnknownMRSA Assessment: No Known History of MRSAAuditory Impairment : NonePrior Hospital AdmissionsName of the Hospital(s): OnlyReadmit Risk Too lSupport Systems: FPC facilityRelationship with Primary Physic deondre Group: Seen at least one time within thepast 6 monthsPCP: Patricio Hills DOAdmitting Provider: ELIAN Gonzalez [facility] INVESTIGATION LIEUTENANT: N/APayor: Payor[place] / Plan[place] PART A A [place] B/ Product Type: Medicare /Secondary Payor: @SECINSGROUPNAME@Acute respira tory failure with hypoxia (HCC) [J96.01]Pneumonia [J18.9]Patient Active Problem ListDiagnosis Code 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 COPD (chronic obstr uctive pulmonary disease) ([facility]) J44.9 Acute respiratory distress R06.03 Pneumonia J 18.9 COPD exacerbation (HCC) J44.1 Sepsis due to undetermined organism (HCC) A41.9 Generalized anxiety disorder F41.1 Acute respiratory failure with hypoxia (HCC) J 96.01 Pneumonia involving right lung J18.9 Hyponatremia E87.1 SOB (shortness of br eath) R06.02 Pressure injury of right heel, stage 2 ([facility]) L89.612 Leg wound, right, initial encounter S81.801ASocial HistorySubstance and Sexual ActivityAlco hol Use NoNumber of stairs into patient home:DME:Cohabitants:Abuse Screen:Physic al Abuse/Neglect: Patient unable to answerSexual Abuse: Patient unable to an swerVerbal Abuse: Patient unable to answerOther Abuse/Issues: Patient unable to answerINSURANCE INFORMATION: (Verification)Primary Notes:Secondary No tasha:Workmen's Comp Notes:No-Fault Notes:SSD Notes:Un-Insured Notes:[facility] Notes:Current Functioning:Language barriers: Notes:Und erstanding nature/impact of illness: Notes:Ability to participate in plan: No tasha:Realistic Problem solving and planning: Notes:Adequate coping skills: Notes:Reli gious/Cultural barriers: Notes:If unable to assess or not applicable: Notes:Suicide Assessment:Readmit Risk:Support Systems: FPC facilityRelationship terrance Primary Physician Group: Seen at least one time within themtst 6 monthsRRAT Total S core: 29Advanced Care Planning:Confirm Advance Directive: NoneDiscussed with th e patient and all questions fully answered. He will call me ifany problems arise. Name Value Range Interpretation Code Description Data Harriett rce(s) Supporting Document(s ) ID Date Data Source [id number] 03/16/2019 03:12:10 PM [facility] Problem: Falls - Risk ofGoal: *Absence [...] Supporting Document(s ) ID Date Data Source [id number] 03/16/2019 08:31:06 AM EST [facility] ID Progress Note03/16/2019Subjective:Siri ent with history of mental retardation,recurrent aspiration pneumon ia wasTransferred from the intermediate for fever of 101.2,increase chestcongestion, wheezing and respiratory disrtess.He was febrile to 100.5 on arrivalto the ER wit h elevated wbc of 18,600.Patient is unable to provide history.AfebrileBlood cx remain negativeNon verbal unable to provide historyObjective:Review of Systems: unab le to provideVitals:Patient Vitals for the past 24 hrs: BP Temp Pulse Resp SpO2 Earl ght105/17/18 0754 157/81 98.5 F (36.9 C) [...] sodium chloride 250 mL IVPB 1,000 mgIntraVENous G48YArmk:Re cent Labs 03/15/1907WBC 8.6 7.6 8.8HGB 13.9* [...] Name Value Range Interpretation Code Description Data [facility](s) Supporting Document(s ) ID Date Data Source [id number] 03/16/2019 07:19:52 AM [facility] Bedside and Verbal shift change report carol pham to Shira RN (oncoming nurse) bySergio Mendoza RN (offgoing nurse). Report inclu ded the following information SBAR, Kardex, MARand Recent Results. Name Value Range Interpretation Code Description Data Harriett rce(s) Supporting Document(s ) ID Date Data Source [id number] 03/16/2019 10:06:00 AM EST [facility] Name Value Range Interpretation Description Data Sup porting Code Source(s) Document(s ) Leukocytes 8.6 K/uL 4.8-10.6 [facility] - [#/volume] in Good Blood by [facility] Automated [facility] Erythrocytes 4.45 4.70-6.0 Below low normal [facility] - [#/volume] in M/uL 0 Good Blood by [facility] Automated count Hospital Hemoglobin 13.9 14.0-18. Below low normal [facility] - [Mass/volume] in g/dL 0 Good Blood [facility] Hematocrit 42.4 % 42.0-52. [facility] - [Volume 0 Good Fraction] of [facility]ism Blood by Hospital Automated count Erythrocyte mean 95.3 FL 81.0-94. Above high normal [facility] - corpuscular 0 Good volume [Entitic [facility]rianism volume] by Hospital Automated count Erythrocyte mean 31.2 PG 27.0-35. [facility] - corpuscular 0 Good hemoglobin [facility] [Entitic mass] Hospital by Automated count Erythrocyte mean 32.8 30.7-37. [facility] - corpuscular g/dL 3 Good hemoglobin [facility] concentration Hospital [Mass/volume] by Automated count Erythrocyte 15.6 % 11.5-14. Above high normal [facility] - distribution 0 Good width [Ratio] by [facility]rianism Automated count [facility] Platelets 261 K/uL 130-400 [facility] - [#/volume] in Good Blood by [facility]rianism Automated count [facility] Platelet mean 9.4 FL 9.2-11.8 [facility] - volume [Entitic Good volume] in Blood [facility] by Automated Hospital count Segmented 70 % 48-72 [facility] - neutrophils/100 Good leukocytes in [facility] Blood by Manual Hospital count Lymphocytes/100 17 % 18-40 Below low normal [facility] - leukocytes in Good Blood by Manual [facility]oroastrianism count [facility] Monocytes/100 11 % 2-12 [facility] - leukocytes in Good Blood by Manual [facility]astrianism count [facility] Metamyelocytes/1 1 % 0 Above high normal [facility] - 00 leukocytes in Good Blood by Manual [facility]astrianism count [facility] Myelocytes/100 1 % 0 Above high normal [facility] - leukocytes in Good Blood by Manual [facility]oroastrianism count [facility] Erythrocyte [facility] - morphology Good finding [facility]ism [Identifier] in Hospital Blood Platelet [facility] - adequacy Good [Presence] in [facility]ism Blood by Light Hospital microscopy Differential [facility] - cell count Good method - Blood [facility] ID Date Data Source [id number] 03/16/2019 08:28:27 AM EST [facility] Name Value Range Interpretation Description Data Sup porting Code Source(s) Document(s ) Sodium 138 136-145 [facility] - Good [Moles/volume] mmol/L [facility] in Serum or Hospital Plasma Potassium 4.1 3.5-5.1 [facility] - Good [Moles/volume] mmol/L [facility] in Serum or Hospital Plasma Chloride 101 98-107 [facility] - Good [Moles/volume] mmol/L [facility] in Serum or Hospital Plasma Carbon 35 21-32 Above high normal [facility] - Good dioxide, total mmol/L [facility] [Moles/volume] Hospital in Serum or Plasma Anion gap in 6 mmol/L 10-20 Below low normal [facility] - Go od Serum or [facility] Plasma Hospital Glucose 87 mg/dL 74-106 [facility] - Good [Mass/volume] [facility]astrianism in Serum or Hospital Plasma Urea nitrogen 12 mg/dL 7-18 [facility] - Good [Mass/volume] [facility]rianism in Serum or Hospital Plasma Creatinine 0.34 0.70-1.3 Below low normal [facility] - Good [Mass/volume] mg/dL 0 [facility] in Serum or Hospital Plasma Glomerular >60 [facility] - Good filtration [facility]rianism rate/1.73 sq M Hospital predicted among blacks [Volume Rate/Area] in Serum or Plasma by Creatinine-bas ed formula (MDRD) Glomerular >60 [facility] - Good filtration [facility]rianism rate/1.73 sq M Hospital predicted among non-blacks [Volume Rate/Area] in Serum or Plasma by Creatinine-bas ed formula (MDRD) Calcium 9.6 8.5-10.1 [facility] - Good [Mass/volume] mg/dL [facility]ism in Serum or Hospital Plasma Phosphate 2.9 2.5-4.9 [facility] - Good [Mass/volume] mg/dL [facility]ism in Serum or Hospital Plasma Albumin 2.3 g/dL 3.5-4.7 Below low normal [facility] - Good [Mass/volume] [facility]astrianism in Serum or Hospital Plasma by Bromocresol purple (BCP) dye binding method ID Date Data Source [id number] 03/16/2019 08:28:27 AM EST [facility] Name Value Range Interpretation Description Data Sup porting Code Source(s) Document(s ) Magnesium 2.1 mg/dL 1.6-2.6 [facility] [Mass/volume] [facility]rianism in Serum or Hospital Plasma ID Date Data Source [id number] 03/16/2019 01:26:24 AM [facility] Problem: Falls - Risk ofGoal: *Absence [...] Supporting Document(s ) ID Date Data Source [id number] 03/15/2019 11:02:48 PM [facility] Progress NotePatient: Evelio Carlin Sex: male DOA: 03/11/2019Date of : 1950 Age: 68 y.o. :[id number]:Reyes Carlin is 68 y.o. male who is [...] 9* --ALT -- -- 10* --Recent Labs [id number] 7.42PCO2 52*PO2 69*HCO3 34*CULTURE, BLOO D [[id number]] (Order [id number])MicrobiologyDate: 03/11/2019 D epartment: [facility] Released By/Authorizing:Jessie Neumann MD (auto-released)Specimen Information: Blood Component Value Flag Ref Range Units Sta tusSpecial Requests: PreliminaryNO SPECIAL REQUESTSCulture result: NO GROWT H 4 DAYSCULTURE, BLOOD [[id number]] (Order [id number])MicrobiologyDate: 03/11/2019 D epartment: [facility] [...] sodium chloride 250 mL IVPB 1,000 mgIntraVENous [id number] ent/Plan:Hospital Problems Date Reviewed: 03/15/2019 Codes Class Noted POA [place] respiratory failure with hypoxia (HCC) ICD-10-CM: J96.01ICD-9-CM: 518.81 2018 Unknown Pneumonia ICD-10-CM: J18.9ICD-9-CM: 486 11/08/2018 UnknownAss essment:Acute Respiratory Failure with hypercapnia and hypoxiaPossible Pneumoni aAcute COPDLeukocytosisGastric distentionDysphagia S/P recent g/t conve rsion to jtubeSeizureHyperparathyroidGERD/ Large HHParkinsonismAnxiety disorderSeve re intellectual disabilities Plan: Humidified O2/ BIPAP per pulmContinue IV vancomycin and zosyn per IDNebulizersTaper iv steroids per pulmStart TFStrict aspiration precau tionsContinue sea captain lamictal, depakote, clorazepate (xanax) and sensiparFollow c ulmaren -Teofilo Gonzalez 2018Time: 9:53 PM Name Value Range Interpretation Code Description Data Harriett e(s) Supporting Document(s ) ID Date Data Source [id number] 03/15/2019 07:32:27 PM EST [facility] Bedside shift change report given Misty rivera RN (oncoming nurse) by NANCY Medina (offgoing nurse). Report included thefollowing inf ormation SBAR, Kardex, MAR and Recent Results. Name Value Range Interpretation Code Description Data Harriett rce(s) Supporting Document(s ) ID Date Data Source [id number] 03/15/2019 05:09:46 PM [facility] Pt's sister (HCP) asked for update in pt 's condition from Dr. Hills. Two callsplaced on Dr. Hills's service. No return call received. Name Value Range Interpretation Code Description Data [facility] rce(s) Supporting Document(s ) ID Date Data Source [id number] 03/15/2019 01:03:51 PM [facility] PULMONARY/ CCM- Consult NotePatient: Ivelisse Carlin [...] 250 mg/5 mL (5 mL) soln oral [id number] mg by Per G Tube route every [...] (DEPAKENE) 250 mg/5 mL (5 mL) oral qcnoqfau855 mg, 750 mg, Per G Tube, Q12H, Mili Hills DO, 750 mg at 03/15/19 0820 acetaminophen (TYLENOL) solution 650 mg, 650 mg, Per G Tube, Q4H PRN, Mili Hills DO albu terol-ipratropium (DUO-NEB) 2.5 MG-0.5 MG/3 ML, 3 mL, Nebulization, X6MATTCDov Nihal, MD, 3 mL at 03/15/19 0820 [...] Output:Date 03/14/19699 - 03/15/1965803/15/19699 - 06/03 0659Shift 8095-7531 2524-1310 24 Hour Total 9157-4734 0836-4073 24 Hour TotalI NTAKEI.V.(mL/kg/hr) 1050(1.5) 1050(0.8) 350 [...] CO2 52*PO2 69*HCO3 34*Cultures:No results found for: LongaccessLab ResultsComponent Valu e Date/Time Culture result: NO [...] images were obtained and reviewed on a [employer] d viewingworkstation and directly supervised. Contrast: A [...] Supporting Document(s ) ID Date Data Source [id number] 03/15/2019 11:15:10 AM [facility] Problem: Pneumonia: Discharge OutcomesGo al: *Tolerating dietOutcome: [...] Supporting Document(s ) ID Date Data Source [id number] 03/15/2019 09:11:28 AM EST [facility] ID Progress Note03/15/2019Subjective:Siri ent with history of mental retardation,recurrent aspiration pneumon ia wasTransferred from the intermediate for fever of 101.2,increase chestcongestion, wheezing and [...] sodium chloride 250 mL IVPB 1,000 mgIntraVENous C78ZNhnw:Re cent Labs 03/14/1907WBC 7.6 8.8 10.6HGB 12.0* [...] Supporting Document(s ) ID Date Data Source [id number] 03/15/2019 08:04:39 AM [facility] Progress NotePatient: Evelio Carlin Sex: male DOA: 03/11/2019Date of : 1950 Age: 68 y.o. :[id number]:Reyes Carlin is 68 y.o. male who is [...] 69* 81*HCO3 34* 35*FIO2 -- 40.0CULTURE, BLOOD [[id number]] (Order [id number])MicrobiologyDate: 03/11 Department: [facility] Released By/Authorizing:Jessie Neumann MD (auto-released)Specimen Information: Blood Component Value Flag Ref Range Units Sta tusSpecial Requests: PreliminaryNO SPECIAL REQUESTSCulture result: NO GROWT H 3 DAYSCULTURE, BLOOD [[id number]] (Order [id number])MicrobiologyDate: 03/11/2019 D epartment: [facility] [...] sodium chloride 250 mL IVPB 1,000 mgIntraVENous C75SNwpkurh ent/Plan:Hospital Problems Date Reviewed: 03/14/2019 Codes Class [...] IDNebulizersIv steroids per pulmStart TFStrict aspiration precautionsContinue sea captain lamictal, depakote, clorazepate (xanax) and sensiparFollow cultures Mili Yonatan onSonia 2018Time: 11:48 PM Name Value Range Interpretation Code Description Data Harriett rce(s) Supporting Document(s ) ID Date Data Source [id number] 03/15/2019 08:44:11 AM EST [facility] Name Value Range Interpretation Description Data Sup porting Code Source(s) Document(s ) Sodium 139 136-145 [facility] - Good [Moles/volume] mmol/L [facility] in Serum or Hospital Plasma Potassium 4.2 3.5-5.1 [facility] - Good [Moles/volume] mmol/L [facility] in Serum or Hospital Plasma Chloride 101 98-107 [facility] - Good [Moles/volume] mmol/L [facility] in Serum or Hospital Plasma Carbon 36 21-32 Above high normal [facility] - Good dioxide, total mmol/L [facility] [Moles/volume] Hospital in Serum or Plasma Anion gap in 7 mmol/L 10-20 Below low normal [facility] - Go od Serum or [facility] Plasma Hospital Glucose 118 74-106 Above high normal [facility] - Good [Mass/volume] mg/dL [facility]rianism in Serum or Hospital Plasma Urea nitrogen 13 mg/dL 7-18 [facility] - Good [Mass/volume] [facility]astrianism in Serum or Hospital Plasma Creatinine 0.39 0.70-1.3 Below low normal [facility] - Good [Mass/volume] mg/dL 0 [facility]ism in Serum or Hospital Plasma Glomerular >60 [facility] - Good filtration [facility]rianism rate/1.73 sq M Hospital predicted among blacks [Volume Rate/Area] in Serum or Plasma by Creatinine-bas ed formula (MDRD) Glomerular >60 [facility] - Good filtration [facility]ism rate/1.73 sq M Hospital predicted among non-blacks [Volume Rate/Area] in Serum or Plasma by Creatinine-bas ed formula (MDRD) Calcium 8.7 8.5-10.1 [facility] - Good [Mass/volume] mg/dL [facility] in Serum or Hospital Plasma Phosphate 3.1 2.5-4.9 [facility] - Good [Mass/volume] mg/dL [facility] in Serum or Hospital Plasma Albumin 2.0 g/dL 3.5-4.7 Below low normal [facility] - Good [Mass/volume] [facility]astrianism in Serum or Hospital Plasma by Bromocresol purple (BCP) dye binding method ID Date Data Source [id number] 03/15/2019 08:44:11 AM EST [facility] Name Value Range Interpretation Description Data Sup porting Code Source(s) Document(s ) Magnesium 2.0 mg/dL 1.6-2.6 [facility] [Mass/volume] [facility]astrianism in Serum or Hospital Plasma ID Date Data Source [id number] 03/15/2019 08:25:06 AM EST [facility] Name Value Range Interpretation Description Data Sup porting Code Source(s) Document(s ) Leukocytes 7.6 K/uL 4.8-10.6 [facility] - [#/volume] in Good Blood by [facility] Erythrocytes 3.82 4.70-6.0 Below low normal [facility] - [#/volume] in M/uL 0 Good Blood by [facility] Automated [facility] Hemoglobin 12.0 14.0-18. Below low normal [facility] - [Mass/volume] in g/dL 0 Good Blood [facility] Hematocrit 36.6 % 42.0-52. Below low normal [facility] - [Volume 0 Good Fraction] of Zoroastrianism Blood by [facility] Automated count Erythrocyte mean 95.8 FL 81.0-94. Above high normal [facility] - corpuscular 0 Good volume [Entitic [facility]astrianism volume] by Hospital Automated count Erythrocyte mean 31.4 PG 27.0-35. [facility] - corpuscular 0 Good hemoglobin [facility]ism [Entitic mass] [facility] by Automated count Erythrocyte mean 32.8 30.7-37. [facility] - corpuscular g/dL 3 Good hemoglobin [facility]oroastrianism concentration [facility] [Mass/volume] by Automated count Erythrocyte 15.5 % 11.5-14. Above high normal [facility] - distribution 0 Good width [Ratio] by [facility] count [facility] Platelets 236 K/uL 130-400 [facility] - [#/volume] in Good Blood by [facility] Platelet mean 9.3 FL 9.2-11.8 [facility] - volume [Entitic Good volume] in [facility] by Automated Hospital count Segmented 77 % 48.0-72. Above high normal [facility] - neutrophils/100 [address] Good leukocytes in [facility] Lymphocytes/100 16 % 18.0-40. Below low normal [facility] - leukocytes in 0 [facility] Monocytes/100 7 % 2.0-12.0 [facility] - leukocytes in [facility] Eosinophils/100 0 % 0.0-7.0 [facility] - leukocytes in [facility] Basophils/100 0 % 0.0-3.0 [facility] - leukocytes in [facility] Segmented 5.7 K/UL 1.5-6.6 [facility] - neutrophils Good [#/volume] in [facility] Lymphocytes 1.2 K/UL 1.5-3.5 Below low normal [facility] - [#/volume] in [facility] Monocytes 0.6 K/UL 0.0-1.0 [facility] - [#/volume] in [facility] Eosinophils 0.0 K/UL 0.0-0.7 [facility] - [#/volume] in [facility] Basophils 0.0 K/UL 0.0-0.1 [facility] - [#/volume] in [facility] Differential [facility] - cell count Good method [facility] Immature 2 % 0.0-2.0 [facility] - granulocytes/100 Good leukocytes in [facility] by Hospital Automated count ID Date Data Source [id number] 03/15/2019 07:10:05 AM EST [facility] Bedside and Verbal shift change report carol Silva RN (oncoming nurse) Yves Bonilla RN(offgoing nurse). Report given with SBAR, Kardex, Intake/Output, MAR and RecentResults. Name Value Range Interpretation Code Description Data Harriett rce(s) Supporting Document(s ) ID Date Data Source [id number] 03/15/2019 12:36:14 AM EST [facility] Problem: Falls - Risk ofGoal: *Absence [...] Supporting Document(s ) ID Date Data Source [id number] 03/15/2019 12:16:19 AM [facility] Problem: Falls - Risk ofGoal: *Absence [...] Supporting Document(s ) ID Date Data Source [id number] 03/14/2019 03:18:54 PM EST [facility] PULMONARY/ CCM- Consult NotePatient: Ivelisse Carlin [...] 250 mg/5 mL (5 mL) soln oral wvhqnren658 mg by Per G Tube route every [...] nightly. MaxDaily Amount: 3.75 mg. 12/30/18 Yes Miil Brooks DOcinacalcet (SENSIPAR) 30 mg tablet Take [...] (DEPAKENE) 250 mg/5 mL (5 mL) oral amrmiprt834 mg, 750 mg, Per G Tube, Q12H [...] - 03/14/1965803/14/19699 - 03/15/19 0659Shift 0700- 1859 6230-4067 24 Hour Total 1521-3724 1868-3340 24 Hour TotalINTAKEI.V.(mL/kg/ hr) 1050(1.5) 1050(0.7) 350 [...] 7.41 7.40PCO2 52* 55* 55*PO2 69* 81* 090RMQ1 34* 35* 34*FIO2 -- 40.0 50.0AB G:Recent Labs 03/12/1911PH 7.42 7.41 7.40PCO2 52* 55 * 55*PO2 69* 81* 340FDN0 34* 35* 34*FIO2 -- 40.0 50.0Cultures:No results [...] Supporting Document(s ) ID Date Data Source [id number] 03/14/2019 01:16:24 PM [facility] ID Progress Note03/14/2019Subjective:Betty razo with history of mental retardation,recurrent aspiration pneumon ia wasTransferred from the intermediate for fever of 101.2,increase chestcongestion, wheezing and respiratory disrtess.He was febrile to 100.5 on arrivalto the ER wit h elevated wbc of 18,600.Patient is unable to provide history.AfebrileBlood cx remain negativeNon verbal unable to provide historyObjective:Review of Systems: unab le to provideVitals:Patient Vitals for the past 24 hrs: BP Temp Pulse Resp SpO2 [place] 3188805/14/18 0728 154/78 97.9 F (36.6 C) 65 [...] mcg/2 m l nebulizer suspension 500 mcg ZwjlxdeidgatW57P albuterol-ipratropium (DUO-NEB) 2.5 MG-0.5 MG/3 ML 3 mL Nebulization Q6HWA RT piperacillin-tazo bactam (ZOSYN) 3.375 g in 0.9% sodium chloride (MBP/ADV) 100mL MBP 3.375 g In traVENous Q8H vancomycin (VANCOCIN) 1,000 mg in 0.9% sodium chloride 250 mL IVPB 1,0 00 mgIntraVENous G20KOhni:Recent Labs 03/13/1907WB C 8.8 10.6 --HGB 11.8* [...] Supporting Document(s ) ID Date Data Source [id number] 03/14/2019 10:10:10 AM [facility] History:Respiratory difficulty.FINDINGS: CT scanning of the [...] Supporting Document(s ) ID Date Data Source [id number] 03/14/2019 09:31:37 AM EST [facility] Name Value Range Interpretation Description Data Sup porting Code Source(s) Document(s ) pH of Arterial 7.42 7.35-7.4 [facility] blood 5 [facility] Carbon dioxide 52 mmHg 32-48 Above high normal [facility] - Good [Partial [facility]oroastrianism pressure] in Hospital Arterial blood Oxygen 69 mmHg 83-108 Below low normal [facility] - Good [Partial [facility]astrianism pressure] in Hospital Arterial blood Carbon 35 19-24 Above high normal [facility] Good dioxide, total mmol/L [facility] [Moles/volume] Hospital in Arterial blood Bicarbonate 34 21-28 Above high normal [facility] - Go od [Moles/volume] mmol/L [facility] in Arterial Hospital blood Oxygen 95 % 94-98 [facility] saturation in [facility] Base excess in 7.6 0-3 Above high normal [facility] Arterial blood mmol/L [facility] by calculation Hospital Body site [facility] NASAL O23 Service comment [id number] [facility] ID Date Data Source [id number] 03/14/2019 08:37:23 AM EST [facility] Name Value Range Interpretation Description Data Sup porting Code Source(s) Document(s ) Sodium 140 136-145 [facility] - [Moles/volume] in mmol/L [facility] Serum or [facility] Potassium 3.6 3.5-5.1 [facility] - [Moles/volume] in mmol/L [facility] Serum or [facility] Chloride 106 98-107 [facility] - [Moles/volume] in mmol/L [facility] Serum or [facility] Carbon dioxide, 31 21-32 [facility] - total mmol/L [facility] [Moles/volume] in [facility]rianism Serum or [facility] Anion gap in Serum 6 10-20 Below low normal [facility] - or Plasma mmol/L [facility] Glucose 111 74-106 Above high [facility] - [Mass/volume] in mg/dL normal [facility] Serum or [facility] Urea nitrogen 17 7-18 [facility] - [Mass/volume] in mg/dL Good Serum or Plasma [facility] Creatinine 0.25 0.70-1. Below low normal [facility] - [Mass/volume] in mg/dL 30 Good Serum or Plasma [facility] Glomerular >60 [facility] - filtration Good rate/1.73 sq M [facility] predicted among Hospital blacks [Volume Rate/Area] in Serum or Plasma by Creatinine-based formula (MDRD) Glomerular >60 [facility] - filtration Good rate/1.73 sq M [facility] predicted among Hospital non-blacks [Volume Rate/Area] in Serum or Plasma by Creatinine-based formula (MDRD) Calcium 8.1 8.5-10. Below low normal [facility] - [Mass/volume] in mg/dL 1 Good Serum or Plasma [facility] Bilirubin.total 0.7 0.2-1.0 [facility] - [Mass/volume] in mg/dL Good Serum or Plasma [facility] Alanine 10 U/L 13-61 Below low normal [facility] - aminotransferase Good [Enzymatic Zoroastrianism activity/volume] in Hospital Serum or Plasma Aspartate 9 U/L 15-37 Below low normal [facility] - aminotransferase Good [Enzymatic Zoroastrianism activity/volume] in Hospital Serum or Plasma by With P-5'-P Alkaline 76 U/L 45-117 [facility] - phosphatase Good [Enzymatic Zoroastrianism activity/volume] in Hospital Serum or Plasma Protein 5.4 6.4-8.2 Below low normal [facility] - [Mass/volume] in g/dL Good Serum or Plasma [facility] Albumin 1.9 3.5-4.7 Below low normal [facility] - [Mass/volume] in g/dL Good Serum or Plasma by [facility]astrianism Bromocresol purple [facility] (BCP) dye binding method Globulin 3.5 1.7-4.7 [facility] - [Mass/volume] in g/dL Good Serum by [facility] Albumin/Globulin 0.5 0.7-2.8 Below low normal [facility] - [Mass Ratio] in Good Serum or Plasma [facility] ID Date Data Source [id number] 03/14/2019 08:37:23 AM EST [facility] Name Value Range Interpretation Description Data Sup porting Code Source(s) Document(s ) Magnesium 1.7 mg/dL 1.6-2.6 [facility] [Mass/volume] [facility]rianism in Serum or Hospital Plasma ID Date Data Source [id number] 03/14/2019 08:20:22 AM EST [facility] Name Value Range Interpretation Description Data Sup porting Code Source(s) Document(s ) Leukocytes 8.8 K/uL 4.8-10.6 [facility] - [#/volume] in Good Blood by [facility] Automated count Hospital Erythrocytes 3.72 4.70-6.0 Below low normal [facility] - [#/volume] in M/uL 0 Good Blood by [facility] Automated count Hospital Hemoglobin 11.8 14.0-18. Below low normal [facility] - [Mass/volume] in g/dL 0 [facility] Blood [facility] Hematocrit 35.9 % 42.0-52. Below low normal [facility] - [Volume 0 Good Fraction] of [facility]ism Blood by Hospital Automated count Erythrocyte mean 96.5 FL 81.0-94. Above high normal [facility] - corpuscular 0 Good volume [Entitic [facility]ism volume] by Hospital Automated count Erythrocyte mean 31.7 PG 27.0-35. [facility] - corpuscular 0 Good hemoglobin [facility] [Entitic mass] [facility] by Automated count Erythrocyte mean 32.9 30.7-37. [facility] - corpuscular g/dL 3 Good hemoglobin [facility] [Mass/volume] by Automated count Erythrocyte 15.5 % 11.5-14. Above high normal [facility] - distribution 0 Good width [Ratio] by [facility] Automated count Hospital Platelets 252 K/uL 130-400 [facility] - [#/volume] in Good Blood by [facility] Automated count Hospital Platelet mean 9.3 FL 9.2-11.8 [facility] - volume [Entitic Good volume] in Blood [facility] by Automated Hospital count Segmented 86 % 48.0-72. Above high normal [facility] - neutrophils/100 [address] [facility] Lymphocytes/100 9 % 18.0-40. Below low normal [facility] - leukocytes [facility] [facility] Monocytes/100 5 % 2.0-12.0 [facility] - leukocytes in [facility] Eosinophils/100 0 % 0.0-7.0 [facility] - leukocytes in [facility] Basophils/100 0 % 0.0-3.0 [facility] - leukocytes in [facility] Segmented 7.6 K/UL 1.5-6.6 Above high normal [facility] - neutrophils Good [#/volume] in [facility] Lymphocytes 0.8 K/UL 1.5-3.5 Below low normal [facility] - [#/volume] in [facility] Monocytes 0.4 K/UL 0.0-1.0 [facility] - [#/volume] in [facility] Eosinophils 0.0 K/UL 0.0-0.7 [facility] - [#/volume] in [facility] Basophils 0.0 K/UL 0.0-0.1 [facility] - [#/volume] in [facility] Differential [facility] - cell count [facility] Immature 0 % 0.0-2.0 [facility] - granulocytes/100 [facility] leukocytes in [facility] Automated count ID Date Data Source [id number] 03/14/2019 07:18:48 AM [facility] Bedside and Verbal shift change report g iven to Yuki Ohara RN (oncomingnurse) by Geovanna Vazquez RN (offgoing nurse). Report included the following information SBAR, Kardex, MARand Recent Results. Name Value Range Interpretation Code Description Data [facility] Supporting Document(s ) ID Date Data Source [id number] 03/14/2019 01:21:00 AM [facility] Problem: Altered nutritionGoal: *Optimiz e nutritional statusDescriptionPt meets >75% of estimated kcal and prot needs through out LOSOutcome: Progressing Towards GoalContinuous PEG feeding Name Value Range Interpretation Code Description Data [facility](s) Supporting Document(s ) ID Date Data Source [id number] 03/13/2019 10:38:14 PM [facility] Progress NotePatient: Evelio Carlin Sex: male DOA: 03/11/2019Date of : 1950 Age: 68 y.o. :[id number]:Reyes Carlin is 68 y.o. male who is [...] 34* 38*FIO2 40.0 50.0 100.0CULTURE, BLOOD [[id number]] (Order [id number])MicrobiologyDate: 03/11/2019 Department: [facility] 3t Med Surg R eleased By/Authorizing:Jessie Neumann MD (auto-released)Specimen Information: Blood Component Value Flag Ref Range Units StatusSpecial Requests: Preliminary NO SPECIAL REQUESTSCulture result: NO GROWTH 2 DAYSCULTURE, BLOOD [[id number]] (Order [id number])MicrobiologyDate: 03/11/2019 Department: [facility] 3t Med Surg Released By/ Authorizing:Jessie Neumann [...] mcg/2 m l nebulizer suspension 500 mcg GjctmyfrpsjwK19P albuterol-ipratropium (DUO-NEB) 2.5 MG-0.5 MG/3 ML 3 mL Nebulization Q6HWA RT piperacillin-tazo bactam (ZOSYN) 3.375 g in 0.9% sodium chloride (MBP/ADV) 100mL MBP 3.375 g In traVENous Q8H vancomycin (VANCOCIN) 1,000 mg in 0.9% sodium chloride 250 mL IVPB 1,0 00 mgIntraVENous D44SQxkguhfzad/Plan:Hospital Problems Date Reviewed: 03/13/2019 Codes Class Noted POA Acute respiratory failure with hypoxia (HCC) ICD-10-CM: J9 6.01ICD-9-CM: 518.81 01/10/2019 Unknown Pneumonia ICD-10-CM: J18.9ICD-9-CM: 486 11/08/2018 UnknownAssessment:Acute Respiratory Failure with hypercapnia and hypoxiaPossible PneumoniaAcute COPDLeukocytosisGastric distentionDyspha jaydon S/P recent g/t conversion to jtubeSeizureHyperparathyroidGERD/ Large HHParkinsonismAnxiety disorderSevere intellectual disabilitiesPlan:O2/ BIPAP per pulmContinue IV vancomycin and zosyn per IDNebulizersIv steroids per pulmStart TF Continue sea captain lamictal, depakote, clorazepate (xanax) and sensiparFollow culturesF/u c t Sonia Porras 2018Time: 10:05 PM Name Value Range Interpretation Code Description Data Harriett rce(s) Supporting Document(s ) ID Date Data Source [id number] 03/13/2019 09:19:52 PM [facility] Name Value Range Interpretation Description Data Sup porting Code Source(s) Document(s ) Vancomycin 12.6 10-20 [facility] - Good [Mass/volume] ug/mL [facility] in Serum or Hospital Plasma --trough (NOTE)Trough levels of 15-20 ug/mL shoul d be targeted for patients withcoagulase negative Staphylococcus and MRSA pneumon ia, endocarditis,osteomyelitis, meningitis, and bacteremia; as well as patients notr esponding to lower levels. Trough levels of 10-15 ug/mL forinfections from other [facility] rces (e.g. urinary tract, cellulitis) areappropriate. All patients receiving c oncomitant nephrotoxic therapiesshould have their function closely monitored regardl ess of peak ortrough levels. ID Date Data Source [id number] 03/13/2019 06:59:56 PM [facility] Bedside and Verbal shift change report g iven to Geovanna Vazquez RN (oncoming nurse)by Yuki Ohara RN (offgoing nurse) . Report included the following information SBAR,Intake/Output, MAR, Recent Results and Cardiac Rhythm SB. Name Value Range Interpretation Code Description Data [facility] rce(s) Supporting Document(s ) ID Date Data Source [id number] 03/13/2019 06:56:43 PM [facility] ID Progress Note03/13/2019Subjective:Betty ient with history of mental retardation,recurrent aspiration pneumon ia wasTransferred from the intermediate for fever of 101.2,increase chestcongestion, wheezing and [...] 500 mcg/2 ml nebulizer suspension 500 mcg YqnsxbqwctouJ22O albuterol-ipratropium (DUO-NEB) 2.5 MG-0.5 MG/3 ML 3 mL Nebulization Q6HWA RT piperacillin-tazo bactam (ZOSYN) 3.375 g in 0.9% sodium chloride (MBP/ADV) 100mL MBP 3.375 g In traVENous Q8H vancomycin (VANCOCIN) 1,000 mg in 0.9% sodium chloride 250 mL IVPB 1,0 00 mgIntraVENous V10GEqvr:Recent Labs 03/12/1906WB C 10.6 -- 18.6*HGB 12.5* [...] Supporting Document(s ) ID Date Data Source [id number] 03/13/2019 05:02:11 PM EST [facility] Progress NoteMID-[facility] ,[facility].Krystian Monae MD., F.C.C.P.Stella Hamilton MD., F.C.C.P. [address] [place] [address] [phone]: Evelio Carlin Sex: male DOA: 03/11/2019D ate of : 1950 Age: 68 y.o. LOS: LOS: 2 daysSubjective:HE IS MUCH MORE AWAKE AND COMFORTABLE TODAY , PATIENT PUULS OFF HISBIPAP. ACUTE R RE SPIRATORY DISTRESS HAVE IMPROVED .Evelio is a 68 y.o. male who presents from [facility] with medical history ofDysphagia, recurrent aspiration pneumonia, [...] h fever, temp 101.2, tachypneic, and hypoxia zcnqU0RPK of 90 %on 4 LPM O2 via [...] 250 mg/5 mL (5 mL) soln oral wotgondp925 mg by Per G Tube route every [...] 24 hrs: BP Temp Pulse Resp SpO2 Zinfqi06/29/19 1606 137/67 98.2 F (36.8 C) 63 [...] 07:15 AM GLUCPOC 120 (H) 03/12/2019 09:55 [email or web address] icro Results Procedure Component Value Units Date/Time CULTURE, BLOOD [[id number]] Col lected: 03/11/19413 Order Status: Completed Specimen: Blood Updated: 728 Special Requests: NO SPECIAL REQUESTS Culture result: NO GROWTH 2 DA YS CULTURE, BLOOD [[id number]] Collected: 03/11/19413 Order Status: Completed S pecimen: [...] mcg/2 ml nebulizer suspension 500 mcg Nebuliz ifrycR29A albuterol-ipratropium (DUO-NEB) 2.5 MG-0.5 MG/3 ML 3 mL Nebulization Q6 HWA RT piperacillin-tazobactam (ZOSYN) 3.375 g in 0.9% sodium chloride (MBP/ADV) 100m L MBP 3.375 g IntraVENous Q8H vancomycin (VANCOCIN) 1,000 mg in 0.9% sodium chlor wade 250 mL IVPB 1,000 mgIntraVENous B11CYrylnu Problems: Pneumonia (11/09/19 19) Acute respiratory failure [...] Supporting Document(s ) ID Date Data Source [id number] 03/13/2019 04:22:08 PM [facility] RECOMMENDATIONS:Suggest change EN to Osm olite 1.5@50mL/hr with 30mL prostat daily with 100mLfree H2O Q 3hr. 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)Goals:Pt meets >75% of estimated kcal and prot needs throughout LOSMonitoring and EvaluationFollow EN/PN RxMonitor skin integrityDischarge Planni ng:EN as recommended above [x] No cultural, yarsanism, or ethnic dietary needs ident ified [] Cultural, yarsanism and ethnic food preferences identified and addressed [] Participated in care plan, discharge planning/Interdisciplinary roundsFrances R Olga, RD Name Value Range Interpretation Code Description Data [facility] Document(s ) ID Date Data Source [id number] 03/13/2019 11:51:12 AM [facility] Pt off the bipap / placed on aerosol mas k 40%/ vital signs stable/ Assessed thept for skin breakdown with RN / no skin break d own noted/ will monitor daily forskin break down/ Name Value Range Interpretation Code Description Data [facility](s) Supporting Document(s ) ID Date Data Source [id number] 03/13/2019 07:55:51 AM [facility] Bedside and Verbal shift change report carol pham to Teresa García RN (oncoming nurse) Shawn PITTS (offgoing nurse). Report included the following information SBAR,Kardex, Intake/Output, MAR, Recent Results and M ed Rec Status. Name Value Range Interpretation Code Description Data [facility] rce(s) Supporting Document(s ) ID Date Data Source [id number] 03/13/2019 09:40:18 AM EST [facility] Name Value Range Interpretation Description Data Sup porting Code Source(s) Document(s ) Leukocytes 10.6 4.8-10.6 [facility] - [#/volume] in K/uL [facility] by [facility] Automated count Hospital Erythrocytes 3.94 4.70-6.0 Below low normal [facility] - [#/volume] in M/uL 0 [facility] by [facility] Automated count Hospital Hemoglobin 12.5 14.0-18. Below low normal [facility] - [Mass/volume] in g/dL 0 [facility] Hematocrit 38.4 % 42.0-52. Below low normal [facility] - [Volume 0 Good Fraction] of [facility] Blood by Hospital Automated count Erythrocyte mean 97.5 FL 81.0-94. Above high normal [facility] - corpuscular 0 Good volume [Entitic [facility]ism volume] by Hospital Automated count Erythrocyte mean 31.7 PG 27.0-35. [facility] - corpuscular 0 Good hemoglobin [facility] [Entitic mass] Hospital by Automated count Erythrocyte mean 32.6 30.7-37. [facility] - corpuscular g/dL 3 Good hemoglobin [facility] [Mass/volume] by Automated count Erythrocyte 15.9 % 11.5-14. Above high normal [facility] - distribution 0 Good width [Ratio] by [facility] Automated count Hospital Platelets 251 K/uL 130-400 [facility] - [#/volume] in [facility] Blood by [facility] Automated count Hospital Platelet mean 9.9 FL 9.2-11.8 [facility] - volume [Entitic Good volume] in Blood [facility] by Automated Hospital count Segmented 92 % 48-72 Above high normal [facility] - neutrophils/100 Good leukocytes in [facility] Blood by Manual Hospital count Lymphocytes/100 6 % 18-40 Below low normal [facility] - leukocytes in Good Blood by Manual [facility] count Hospital Variant 1 % 0 Above high normal [facility] - lymphocytes/100 Good leukocytes in [facility] Blood by Manual Hospital count Monocytes/100 1 % 2-12 Below low normal [facility] - leukocytes in [facility] Blood by Manual [facility] Erythrocyte [facility] - morphology Good finding [facility] [Identifier] in Hospital Blood Platelet [facility] - adequacy Good [Presence] in [facility] Blood by Light Hospital microscopy Differential [facility] - cell count Good method - [facility] Segmented 9.7 K/UL [facility] - neutrophils Good [#/volume] in [facility] Lymphocytes 0.6 K/UL [facility] - [#/volume] in [facility] Monocytes 0.3 K/UL [facility] - [#/volume] in [facility] Eosinophils 0.0 K/UL [facility] - [#/volume] in [facility] Basophils 0.0 K/UL [facility] - [#/volume] in [facility] ID Date Data Source [id number] 03/13/2019 09:23:50 AM EST [facility] Name Value Range Interpretation Description Data Sup porting Code Source(s) Document(s ) Sodium 138 136-145 [facility] - Good [Moles/volume] mmol/L [facility] in Serum or Hospital Plasma Potassium 4.1 3.5-5.1 [facility] - Good [Moles/volume] mmol/L [facility] in Serum or Hospital Plasma Chloride 101 98-107 [facility] - Good [Moles/volume] mmol/L [facility] in Serum or Hospital Plasma Carbon 35 21-32 Above high normal [facility] - Good dioxide, total mmol/L [facility] [Moles/volume] Hospital in Serum or Plasma Anion gap in 6 mmol/L 10-20 Below low normal [facility] - Go od Serum or [facility] Plasma Hospital Glucose 129 74-106 Above high normal [facility] - Good [Mass/volume] mg/dL [facility] in Serum or Hospital Plasma Urea nitrogen 25 mg/dL 7-18 Above high normal [facility] - Good [Mass/volume] [facility] in Serum or Hospital Plasma Creatinine 0.39 0.70-1.3 Below low normal [facility] - Good [Mass/volume] mg/dL 0 [facility] in Serum or Hospital Plasma Glomerular >60 [facility] - Good filtration [facility] rate/1.73 sq M Hospital predicted among blacks [Volume Rate/Area] in Serum or Plasma by Creatinine-bas ed formula (MDRD) Glomerular >60 [facility] - Good filtration [facility] rate/1.73 sq M Hospital predicted among non-blacks [Volume Rate/Area] in Serum or Plasma by Creatinine-bas ed formula (MDRD) Calcium 9.4 8.5-10.1 [facility] - Good [Mass/volume] mg/dL [facility] in Serum or Hospital Plasma Phosphate 2.8 2.5-4.9 [facility] - Good [Mass/volume] mg/dL [facility] in Serum or Hospital Plasma Albumin 2.1 g/dL 3.5-4.7 Below low normal [facility] - Good [Mass/volume] [facility] in Serum or Hospital Plasma by Bromocresol purple (BCP) dye binding method ID Date Data Source [id number] 03/13/2019 09:23:50 AM [facility] Name Value Range Interpretation Description Data Sup porting Code Source(s) Document(s ) Magnesium 2.3 mg/dL 1.6-2.6 [facility] - Good [Mass/volume] [facility] in Serum or Hospital Plasma ID Date Data Source [id number] 03/13/2019 07:22:36 AM [facility] Review BIPAP settings, alarms and skin a dhesive with next shift [facility] wiped down with bleach wipes Name Value Range Interpretation Code Description Data Harriett rce(s) Supporting Document(s ) ID Date Data Source [id number] 03/13/2019 07:38:46 AM EST [facility] Name Value Range Interpretation Description Data Sup porting Code Source(s) Document(s ) Glucose 129 MG/DL 65-110 Above high normal [facility] - Good [Mass/volume] [facility] in Blood by Hospital Automated test strip ID Date Data Source [id number] 03/12/2019 11:56:08 PM [facility] Progress NotePatient: Evelio Carlin Sex: male DOA: 03/11/2019Date of : 1950 Age: 68 y.o. :[id number]:Reyes Carlin is 68 y.o. male who is [...] 40.0 50.0 100.0Valproic acid 78C ULTURE, BLOOD [[id number]] (Order [id number])MicrobiologyDate: 03/11/2019 D epartment: [facility] 3t Med Surg Released By/Authorizing:Jessie Neumann MD (auto-released)Specimen Information: Blood Component Value Flag Ref Range Units Sta tusSpecial Requests: PreliminaryNO SPECIAL REQUESTSCulture result: NO GROWT H 1 DAYCULTURE, BLOOD [[id number]] (Order [id number])MicrobiologyDate: 03/11/2019 D epartment: [facility]t Med Surg [...] 500 mcg/2 ml nebulizer suspension 500 mcg ClgdihxtwtjrT37I albuterol-ipratropium (DUO-NEB) 2.5 MG-0.5 MG/3 ML 3 mL Nebulization Q6HWA RT piperacillin-tazo bactam (ZOSYN) 3.375 g in 0.9% sodium chloride (MBP/ADV) 100mL MBP 3.375 g In traVENous Q8H vancomycin (VANCOCIN) 1,000 mg in 0.9% sodium chloride 250 mL IVPB 1,0 00 mgIntraVENous Z26QXgmiiujxam/Plan:Hospital Problems Date Reviewed: 03/12/2019 Codes Class Noted POA Acute respiratory failure with hypoxia (HCC) ICD-10-CM: J9 6.01ICD-9-CM: 518.81 01/10/2019 Unknown Pneumonia ICD-10-CM: J18.9ICD-9-CM: 486 11/08/2018 UnknownAssessment:Acute Respiratory Failure with hypercapnia and hypoxiaPossible PneumoniaAcute COPDLeukocytosisGastric distentionDyspha jaydon S/P recent g/t conversion to jtubeSeizureHyperparathyroidGERD/ Large HHParkinsonismAnxiety disorderSevere intellectual disabilitiesPlan:O2/ BIPAP per pulmContinue IV vancomycin and zosyn per IDNebulizersIv steroids per pulmStart TF Continue sea captain lamictal, depakote, clorazepate (xanax) and sensiparFollow culturesF/u c t Sonia Porras 2018Time: 11:14 PM Name Value Range Interpretation Code Description Data Harriett rce(s) Supporting Document(s ) ID Date Data Source [id number] 03/12/2019 10:11:09 PM EST [facility] Name Value Range Interpretation Description Data Sup porting Code Source(s) Document(s ) Glucose 120 MG/DL 65-110 Above high normal [facility] [Mass/volume] [facility]oroastrianism in Blood by [facility] Automated test strip ID Date Data Source [id number] 03/12/2019 07:58:46 PM [facility] Bedside and Verbal shift change report carol pham to Susan RN (oncoming nurse) Israel Alamo RN (offgoing nurse). Report incl uded the following information SBAR, Kardex,Intake/Output, MAR, Recent Result s and Cardiac Rhythm NSR. Name Value Range Interpretation Code Description Data [facility] rce(s) Supporting Document(s ) ID Date Data Source [id number] 03/12/2019 01:01:26 PM [facility] PULMONARY/ CCM- Consult NotePatient: Ivelisse Carlin [...] 250 mg/5 mL (5 mL) soln oral ttxenbkn198 mg by Per G Tube route every [...] 250 mg/5 mL (5 mL) oral solut xis242 mg, 750 mg, Per G Tube, Q12H, [...] MG-0 .5 MG/3 ML, 3 mL, Nebulization, [id number] Nihal, MD, 3 mL at 03/12/19 0810 [...] 03/12/1965819 0700 - 03/13/19 0659Shift 07- 1858 4702-5366 24 Hour Total 8008-5981 4203-6931 24 Hour TotalINTAKEI.V.(mL/kg/ hr) 940(1.3) 1090(1.5) 2030(1.4) Volume (0.9% sodium chloride infusion) 267 845 3106 Volume (piperacillin-tazobactam (ZOSYN) 3.375 g in 0.9% [...] Supporting Document(s ) ID Date Data Source [id number] 03/12/2019 12:43:20 PM EST [facility] Name Value Range Interpretation Description Data Sup porting Code Source(s) Document(s ) Glucose 105 MG/DL 65-110 [facility] - Good [Mass/volume] [facility] in Blood by Hospital Automated test strip ID Date Data Source [id number] 03/12/2019 11:55:34 AM EST [facility] ID Progress Note03/12/2019Subjective:Betty ient with history of mental retardation,recurrent aspiration pneumon ia wasTransferred from the intermediate for fever of 101.2,increase chestcongestion, wheezing and respiratory disrtess.He was febrile to 100.5 on arrivalto the ER wit h elevated wbc of 18,600.Patient is unable to provide history.Blood cx remain negative Pt on BIPAPNon verbal unable to provide historyObjective:Review of Systems: unab le to provideVitals:Patient Vitals for the past 24 hrs: BP Temp Pulse Resp SpO2 [place] 3188805/12/18 0752 112/55 97.5 F (36.4 C) 62 [...] mcg/2 ml nebulizer suspension 500 mcg Nebuliz txwfaJ77J albuterol-ipratropium (DUO-NEB) 2.5 MG-0.5 MG/3 ML 3 mL Nebulization Q6 HWA RT piperacillin-tazobactam (ZOSYN) 3.375 g in 0.9% sodium chloride (MBP/ADV) 100m L MBP 3.375 g IntraVENous Q8H vancomycin (VANCOCIN) 1,000 mg in 0.9% sodium chlor wade 250 mL IVPB 1,000 mgIntraVENous F34OEtrk:Recent Labs 03/11WBC -- 18.6*HGB -- 13.4*PLT -- [...] Supporting Document(s ) ID Date Data Source [id number] 03/12/2019 11:15:25 AM EST [facility] Name Value Range Interpretation Description Data Sup porting Code Source(s) Document(s ) pH of Arterial 7.41 7.35-7.4 [facility] - Good blood [address] [place] [address] Carbon dioxide 55 mmHg 32-48 Above high normal [facility] - Good [Partial [facility] pressure] in Hospital Arterial blood Oxygen 81 mmHg 83-108 Below low normal [facility] - Good [Partial [facility] pressure] in Hospital Arterial blood Carbon 37 19-24 Above high normal [facility] - Good dioxide, total mmol/L [facility] [Moles/volume] Hospital in Arterial blood Bicarbonate 35 21-28 Above high normal [facility] - Go od [Moles/volume] mmol/L [facility] in Arterial Hospital blood Oxygen 98 % 94-98 [facility] - Good saturation in [facility] Blood [facility] Base excess in 8.4 0-3 Above high normal [facility] - Good Arterial blood mmol/L [facility] by calculation Hospital Body site [facility] - Good [facility] Hospital Oxygen gas [facility] - Good flow Oxygen [facility] delivery Hospital system Oxygen/Inspire 40.0 % [facility] - Good d gas [facility] Respiratory Hospital system --on ventilator Ventilation [facility] - Good mode [facility] [Identifier] Hospital Ventilator PEEP 7 [facility] - Good Respiratory [facility] system Hospital Pressure 14 [facility] - Good support [facility] setting Hospital Ventilator Respiratory 18 [facility] - Good rate [facility] Hospital Service 57196 [facility] - Good comment [facility] ID Date Data Source [id number] 03/12/2019 07:50:17 AM EST [facility] Bedside and Verbal shift change report g ellynen to NEHEMIAS ALAMO RN (oncomingnurse) by Ana Ramesh (offgoing nurse). Report inc luded the followinginformation SBAR, Kardex, Intake/Output, MAR and Recent Results. Name Value Range Interpretation Code Description Data Harriett rce(s) Supporting Document(s ) ID Date Data Source [id number] 03/12/2019 08:54:57 AM EST [facility] Name Value Range Interpretation Description Data Sup porting Code Source(s) Document(s ) Valproate 78 ug/ml 50.0-100 [facility] - Good [Mass/volume] .0 [facility] in Serum or Hospital Plasma ID Date Data Source [id number] 03/12/2019 08:31:59 AM EST [facility] Name Value Range Interpretation Description Data Sup porting Code Source(s) Document(s ) Sodium 140 136-145 [facility] - Good [Moles/volume] mmol/L [facility] in Serum or Hospital Plasma Potassium 4.7 3.5-5.1 [facility] - Good [Moles/volume] mmol/L [facility] in Serum or Hospital Plasma Chloride 100 98-107 [facility] - Good [Moles/volume] mmol/L [facility] in Serum or Hospital Plasma Carbon 37 21-32 Above high normal [facility] - Good dioxide, total mmol/L [facility] [Moles/volume] Hospital in Serum or Plasma Anion gap in 7 mmol/L 10-20 Below low normal [facility] - Go od Serum or [facility] Plasma Hospital Glucose 98 mg/dL 74-106 [facility] - Good [Mass/volume] [facility] in Serum or Hospital Plasma Urea nitrogen 19 mg/dL 7-18 Above high normal [facility] - Good [Mass/volume] [facility] in Serum or Hospital Plasma Creatinine 0.52 0.70-1.3 Below low normal [facility] - Good [Mass/volume] mg/dL 0 [facility] in Serum or Hospital Plasma Glomerular >60 [facility] - Good filtration [facility] rate/1.73 sq M Hospital predicted among blacks [Volume Rate/Area] in Serum or Plasma by Creatinine-bas ed formula (MDRD) Glomerular >60 [facility] - Good filtration [facility] rate/1.73 sq M Hospital predicted among non-blacks [Volume Rate/Area] in Serum or Plasma by Creatinine-bas ed formula (MDRD) Calcium 9.9 8.5-10.1 [facility] - Good [Mass/volume] mg/dL [facility] in Serum or Hospital Plasma Phosphate 3.8 2.5-4.9 [facility] - Good [Mass/volume] mg/dL [facility] in Serum or Hospital Plasma Albumin 2.5 g/dL 3.5-4.7 Below low normal [facility] - Good [Mass/volume] [facility] in Serum or Hospital Plasma by Bromocresol purple (BCP) dye binding method ID Date Data Source [id number] 03/12/2019 08:31:59 AM EST [facility] Name Value Range Interpretation Description Data Sup porting Code Source(s) Document(s ) Cholesterol 156 <200 [facility] - Good [Mass/volume] mg/dL [facility] in Serum or Hospital Plasma Triglyceride 97 mg/dL <150 [facility] - Good [Mass/volume] [facility] in Serum or Hospital Plasma Cholesterol in 71 mg/dL >40 [facility] - [facility] HDL [facility] [Mass/volume] Hospital in Serum or Plasma Cholesterol in 65.6 <100 [facility] - [facility] LDL MG/DL [facility] [Mass/volume] Hospital in Serum or Plasma by calculation Cholesterol in 19.4 <38 [facility] VLDL MG/DL [facility] [Mass/volume] Hospital in Serum or Plasma by calculation Cholesterol in 2.2 0.0-4.5 [facility] - [facility] HDL/Cholesterol [facility] .total [Mass Hospital Ratio] in Serum or Plasma ID Date Data Source [id number] 03/12/2019 08:31:59 AM [facility] Name Value Range Interpretation Description Data Sup porting Code Source(s) Document(s ) Magnesium 2.1 mg/dL 1.6-2.6 [facility] [Mass/volume] Zoroastrianism in Serum or Hospital Plasma ID Date Data Source [id number] 03/11/2019 08:59:12 PM [facility] Problem: Falls - Risk ofGoal: *Absence [...] Name Value Range Interpretation Code Description Data [facility](s) Supporting Document(s ) ID Date Data Source [id number] 03/11/2019 07:50:48 PM [facility] Bedside and Verbal shift change report carol pham to Nelson Ramesh RN (oncoming nurse)by SHIRA KNOX RN (offgoing nurse). Rep ort included the followinginformation SBAR, Kardex, MAR and Recent Results. Name Value Range Interpretation Code Description [facility] Document(s ) ID Date Data Source [id number] 03/11/2019 05:35:35 PM [facility] BIPAP SKIN INTEGRITYPt placed on bipap a round 2pm. Switched to the production posting clerk mask 5pm. sandhya well. Skinbarrier applied to the nos e bridge. Will ask the oncoming RT to rotate the maskto prevent any abrasion Name Value Range Interpretation Code Description Data [facility](s) Supporting Document(s ) ID Date Data Source [id number] 03/11/2019 04:39:05 PM EST [facility] Name Value Range Interpretation Description Data Sup porting Code Source(s) Document(s ) pH of Arterial 7.40 7.35-7.4 [facility] - Good blood 5 [facility] Carbon dioxide 55 mmHg 32-48 Above high normal [facility] - Good [Partial Zoroastrianism pressure] in Hospital Arterial blood Oxygen 106 mmHg 83-108 [facility] - Good [Partial Zoroastrianism pressure] in Hospital Arterial blood Carbon 36 19-24 Above high normal [facility] - Good dioxide, total mmol/L Zoroastrianism [Moles/volume] Hospital in Arterial blood Bicarbonate 34 21-28 Above high normal [facility] - Go od [Moles/volume] mmol/L Zoroastrianism in Arterial Hospital blood Oxygen 99 % 94-98 Above high normal [facility] - Good saturation in [facility] Base excess in 7.5 0-3 Above high normal [facility] - Good Arterial blood mmol/L Zoroastrianism by calculation Hospital Body site [facility] - Good [facility] Arterial [facility] - Good patency Wrist Zoroastrianism artery --pre Hospital arterial puncture Oxygen gas [facility] - Good flow Oxygen Zoroastrianism delivery [facility] system Oxygen/Inspire 50.0 % [facility] - Good d gas Zoroastrianism Respiratory Hospital system --on ventilator Ventilation [facility] - Good mode Zoroastrianism [Identifier] [facility] Ventilator PEEP 5 [facility] - Good Respiratory Zoroastrianism system Hospital Pressure 16 [facility] - Good support [facility] Ventilator Respiratory 14 [facility] - Good rate [facility] Service 44638 [facility] - Good comment [facility] ID Date Data Source [id number] 03/11/2019 04:25:58 PM EST [facility] CTscan on-hold until pt's respiratory st atus improves. Name Value Range Interpretation Code Description Data Harriett rce(s) Supporting Document(s ) ID Date Data Source [id number] 03/11/2019 04:23:54 PM EST [facility] Infectious Disease ConsultToday's Date: 03/11/2019Admit Date: 03/11/2019Subjective:Date of Consultatio n: March 11, 2019Referring Physician: Justice Hills is a 68 y.o. male who is being seen for pneumonia.Patient with historyof mental retardation,recurrent a spiration pneumonia was Transferred from [facility] for fever of 101.2,incre ase chest congestion,wheezing andrespiratory disrtess.He was febrile to 100.5 on arri seema to the ER with elevatedwbc of 18,600.Patient is unable to provide hist ory.History obtained from chartreview.Patient Active Problem ListDiagnosis Code Parae sophageal hiatal hernia K44.9 COPD (chronic obstructive pulmonary disease) ([facility]) J44 .9 Acute respiratory distress R06.03 Pneumonia J18.9 COPD exacerbation ([facility]) J44.1 Sepsis due to undetermined organism ([facility]) A41.9 Generalized anxiety disorde r F41.1 Acute respiratory failure with hypoxia ([facility]) J96.01 Pneumonia involvin g right lung J18.9 Hyponatremia E87.1 SOB (shortness of breath) R06.02 Pressure i njury of right heel, stage 2 ([facility]) L89.612 Leg wound, right, initial encounter S81. 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 No pertinent family history.Social Histo [...] 5,000 unit/mL injection 1 mL bySubCUTAneous ro [place] every twelve (12) hours every twelve (12) [...] mg/5 mL (5 m L) soln oral crcryloe032 mg by Per G Tube route every [...] rbal functional quadriplegiaData Review:Labs:Recent Results (from [facility] t 24 hour(s))EKG, 12 LEAD, INITIAL Collection Time: 03/11/19 4:09 AMResult Value Ref Range Ventricular Rate 104 BPM Atrial Rate 104 BPM P-R Interval 134 ms QRS Duration 85 ms Q-T Interval 299 ms QTC Calculation (Bezet) 393 ms Calculated P [place] 63 degr ees Calculated R [place] 17 degrees Calculated T [place] 6 degrees Diagnosis Sinus tachycard iaBaseline wander in lead(s) [id number], BLOOD Collection Time: 03/11/19 4:14 AMResult Value [...] 12 L/min FIO2 100.0 % Performed by [id number] ACID Co llection Time: 03/11/19 9:30 AMResult [...] in the axial, sagittal and coronal plane.Utilizing curb supervisor alg orithm the examination was performed to [...] THIS IS AFINAL REPORT FROM KATJA BERGER RESIDENTIAL SALES REPRESENTATIVE DATE OF SERVICE: 2018-12-18 01:22:40 IMAGES:555 EXAM: [...] 12/18/2018 04:49 GINA Verde Please call Imaging Canal Structure Operator [phone]) with questions. This report was electronically signed by: Tala MENDEZ 12/18/2018 04: 50 [facility] Chest Wo ContResult Date: 12/13/2018History: Respiratory difficulty [...] coronal, and 3-Dreconstructed images obtained on an [employer] workstation are submitted. Noprior studies are available [...] was injectedintravenously for the examinatio n. Utilizing curb supervisor algorithm theexamination was performed to optimize imaging [...] jocelyn riley on the table in the sgchu-ffxq-yycl decubitus position.CT scanning was perfo rmed location [...] location.Attempts were made to pass an 8 [place] pigtail catheter thr ough this location.However, patient [...] CARLIN THIS IS AFINAL REPORT FROM IMAGING RESIDENTIAL SALES REPRESENTATIVE DATE OF SERVICE: 2019-01-21 22:23:43 IMAGES: 1EXAM: [...] M.D. Please call Imaging On [phone]) with questions. This report was electronically signedby: [...] venous spectral Doppler studies are performed using [place] r Doppler Flowand enhanced Duplex Spectral technique. [...] Supporting Document(s ) ID Date Data Source [id number] 03/11/2019 03:00:22 PM EST [facility] Pt found unresponsive, diaphoretic, shal low respiration at 28 breath/min. at bedside, instructed not to call RR, b ut place patient on bi-pap. RTnotified. Patient placed on bi-pap as per order. N o ABGs needed as per . Name Value Range Interpretation Code Description Data Harriett rce(s) Supporting Document(s ) ID Date Data Source [id number] 03/11/2019 02:14:03 PM [facility] PULMONARY/ CCM- Consult [facility]CCinthia Monae MD., F.C.C.P.Stella Hamilton MD., F.C.C.P. 9W 1 [facility] [address] [place] [id number] [place] [address] [id number] Patient: Evelio Carlin Sex: male DOA: 2018Date of : 1950 Age: 68 y.o. LOS: LOS: 0 daysPCP: Mili Hills DOSubjective:CHIEF COMPLAINT:ACUTE RESPIRATORY DISTRESSHISTORY OF PRESENT ILLNESSEvelio is a 68 y.o. male who presents from [facility] with medical history ofDyspha jaydon, recurrent aspiration [...] with fever, temp 101.2, tachypneic, and hypoxia iowmJ2IBC of 90 %on 4 LPM O2 via [...] hours every twel ve (12) hours. 02/12/19Christos Lopez MDpantoprazole (PROTONIX) 40 [...] mg/ 5 mL (5 mL) soln oral bzykdkdg562 mg by Per G Tube route every [...] hrs: BP Temp Pulse Resp SpO2 Height Wjozqj03/27/19 1326 143 /75 97.8 F (36.6 C) [...] mcg/2 ml nebu lizer suspension 500 mcg HsvvjpavrnmlB98V albuterol-ipratropium (DUO-NEB) 2.5 MG-0 .5 MG/3 ML [...] Calculation ( Bezet) 393 ms Calculated P [place] 63 degrees Calculated R [place] 17 degrees Calculated T [place] 6 degrees Diagnosis Sinus tachycardiaBaseline wander in [...] 12 L/min FIO2 100.0 % Performed by [id number] ACID Collection Time: 03/11/19 9:30 AMResult Value Ref Range Lactic acid 1.7 0.4 - 2.0 MMOL/LABG:Rece nt Labs 808PH 7.46*PCO2 54*PO2 86HCO3 38*FIO2 100.0Recent Glucose Results:Lab ResultsComponent Value Date/Time GLU 94 03/11/2019 04:14 AMCULTURES:All Micro Results Proce dure Component Value Units Date/Time CULTURE, BLOOD [[id number]] Collected: 03/11/19 0 414 Order Status: Completed Specimen: Blood Updated: 03/11/19735 Special Request s: NO SPECIAL REQUESTS Culture result: NO GROWTH AFTER 3 HOURS CULTURE, BLOOD [[id number]] Collected: 03/11/19 0414 Order Status: Completed Specimen: [...] was injected intrave nously for theexamination. Utilizing curb supervisor algorithm the examination was performed tooptimize imaging [...] done Care Plan discussed with: JuanPatientNavimiAlena [facility] Cardiology Physician Shift Supervisor: Kevon HILLS Re commended Disposition:Home with FamilyHH/PT/OT/RNS [...] Care Provided 75 Minutes non procedure based [facility] jose Monae MD F.C.C.P. Name Value Range Interpretation Code Description Data Harriett rce(s) Supporting Document(s ) ID Date Data Source [id number] 03/11/2019 01:25:46 PM [facility] ADMISSION NOTENAME: Evelio Eddie B: 1950MRN: [id number]/Time: 03/11/2019 10:24 AMSubjective:CHIEF COMP LAINT: Fever with Temp 101.2, tachypneic and hypoxic.HISTORY OF PRESENT ILLNESS:Gunner brooks is a 68 y.o. male who presents from [facility] with medical history ofDysphagia, recur rent aspiration [...] with fever, temp 101.2, tachypneic, and hypoxia yzcbC8NWY of 90 %on 4 LPM O2 via [...] his history.Pt was seen and examined at [facility], he is lethargic, but easily arousable. Heis [...] QTC Calculation (Bezet) 393 ms Calculated P [place] 63 degrees Calculated R [place] 17 degrees Calculated T [place] 6 degrees Diagnosis Sinus tachycardiaBaseline wand er in lead(s) [id number], BLOOD Collection Time: 03/11/19 4:14 AMResult Value [...] 12 L/min FIO2 100.0 % Performed by [id number] ACID Co llection Time: 03/11/19 9:30 AMResult [...] Consult ID7. Iv solu medrol8. nebulizers9. Continue sea captain lamictal, depakote, clorazepate (fawad ax) and sensipar viajtube.10. IV .follow up nliyqfvd34 AM cxrProp hylaxis: []Lovenox []Coumadin [x]Hep SQ [...] Supporting Document(s ) ID Date Data Source [id number] 03/11/2019 11:26:52 AM [facility] Problem: Pressure Injury - Risk ofGoal: [...] Supporting Document(s ) ID Date Data Source [id number] 03/11/2019 10:21:41 AM [facility] Lactic acid obtained sent to lab , trans ferred to floor accompanied by meuneventfully Name Value Range Interpretation Code Description Data Harriett rce(s) Supporting Document(s ) ID Date Data Source [id number]*ENCOUNTER 03/11/2019 09:47:46 AM [facility] [id number] [facility] 3T ME D SURG [address] [facility] [address] [phone]/ Evelio Carlin (Male) [id number] I 3 ED Dispo:ADMIT Chief Complaint: Fever, Cough Diagnosis: Pneumonia of left lower lobe due to infectious organism (HCC) [] Current Providers: Attending: Jenn Neumann; Eloisa Hills Consulting Provider: Eloisa Hills; Nicole Ram Primary Nurse: JO ANN BlandN: [id number] [employer] [phone] - Bs hsi Ed Medva MrnMRN: [id number] [employer] [phone] - Bshsi Ed Medva Age SexDOB 1950 AGE 68 SEX Male Primary Care Provider: Mili Hills DO Zqljtyhnu: (No Known Allergi es)Date Reviewed: 02/19/2019Reviewed by: Danny Gerard RN - Review CompleteED Provider Notes: No notes of t his type exist for this encounter.ED Orders 69 SEPSIS BUNDLE INITIATED IN ED [#[id number]] Priority: STAT Class: Hospital Performed Standing Order Information Remaining Occurrences:0/1 Interval:CONTINUOUS Last released:03/11/2019 Released orders: SatMar 11, 2019 3:55 AM by: JESSIE NEUMANN [id number] SEPSIS BUNDLE INITIATED IN ED [#[id number]] Priority: STAT Cl ass: Hospital Performed Released on: 03/11/2019 3:55 AM [id number] CULTURE, BLOOD [# [id number]] Priority: STAT Class: ER Collect Specimen Source: Blood Standing Order Information Remai keith Occurrences:0/1 Interval:NOW Last released:03/11/2019 Released orders : SatMar 11, 2019 3:55 AM by: JESSIE NEUMANN [id number] CULTURE, BLOOD [#[id number]] Priority: STAT Class: ER Collect Specimen Source: Blood Standing Order Informat ion Remaining Occurrences:0/1 Interval:NOW Last released:03/11/2019 Released orders : SatMar 11, 2019 3:55 AM by: JESSIE NEUMANN [id number] CULTURE, BLOOD [#[id number]] Priority: STAT Class: ER Collect Specimen Source: Blood Specimen Collected: 03/11 4:14 AM Resulting Agency: [facility] Test ID: HBCS Released on: 03/11/2019 3:55 AM [id number] CULTURE, BLOOD [#[id number]] Priority: STAT Class: ER Collect Spe cimen Source: Blood Specimen Collected: 03/11/2019 4:14 AM Resulting Agency: [facility]Y Test ID: HBCS Released on: 03/11/2019 3:55 AM [id number] LACTIC ACID [#[id number]] Priority: STAT Class: ER Collect Standing Order Information Remaining Occurrences:0/2 I nterval:EVERY 4 HRS Last released:03/11/2019 Released orders: SatMar 11, 2019 6:05 AM by: JESSIE NEUMANN SatMar 11, 2019 3:55 AM by: JESSIE NEUMANN [id number] URINALYS IS W/ RFLX MICROSCOPIC [#[id number]] Priority: STAT Class: ER Collect Standing Order Information Remaining Occurrences:0/1 Interval:ONE TIME Last released:03/11/2019 Released orders : SatMar 11, 2019 3:55 AM by: JESSIE NEUMANN [id number] CBC WITH AUTOMATED DIFF [#[id number]] Priority: STAT Class: ER Collect Standing Order Information Remaining Occurre nces:0/1 Interval:ONE TIME Last released:03/11/2019 Released orders: SatMar 11 3:55 AM by: JESSIE NEUMANN [id number] METABOLIC PANEL, COMPREHENSIVE [#[id number]] Yuan ority: STAT Class: ER Collect Standing Order Information Remaining Occurrences:0/1 Inter seema:ONE TIME Last released:03/11/2019 Released orders: SatMar 11, 2019 3:55 AM by: JESSIE ZHENG [id number] LACTIC ACID [#[id number]] Priority: STAT Class: E R Collect Specimen Source: Plasma Specimen Collected: 03/11/2019 4:14 AM Resulting Agency: [facility] Test ID: LAC Released on: 03/11/2019 3:55 AM [id number] URINALYSIS W/ RFLX MICROSCOPIC [#[id number]] Priority: STAT Class: ER Collect Specimen Source: Urine Specimen Collected: 03/11 5:10 AM Resulting Agency: [facility] Test ID: UA Released on: 03/11/2019 3:55 AM [id number] CBC WITH AUTOMATED DIFF [#[id number]] Priority: STAT Class: ER Collect Speci men Source: Whole Blood Specimen Collected: 03/11/2019 4:14 AM Resulting Agency: [facility] Test ID: CBCA Released on: 03/11/2019 3:55 AM [id number] METABOLIC PANEL, COMPREHENSIVE [#[id number]] Priority: STAT Class: ER Collect Specimen Source: Plasma Specimen Collected: 02/14 4:14 AM Resulting Agency: [facility] Test ID: MPL Released on: 03/11/2019 3:55 AM [id number] LACTIC ACID [#[id number]] Canceled Priority: STAT Class: ER Co llect Specimen Collected: 03/11/2019 8:00 AM Resulting Agency: [facility] Test ID: LAC Canceled by SOHAIL OLIVO IN SUNQUEST on SatMar 11, 2019 9:43 AM Reason: Other Comment: DUPLICATE REQUEST Released on: 03/11/2019 6:05 AM [id number] BLOOD GAS, ARTERIAL [# [id number]] Priority: STAT Class: ER Collect Standing Order Information Remaining Occurrences:0 /1 Interval:ONE TIME Last released:03/11/2019 Released orders: SatMar 11, 2019 6:40 AM by: MILI HILLS [id number] BLOOD GAS, ARTERIAL [#[id number]] Priority: STAT Class: ER Collect Released on: 03/11/2019 6:40 AM [id number] BLOOD GAS, ARTERIAL [#[id number]] Priority: Routine Class: ER Collect Resulting Agency: [facility] Test ID: ABGG1 Standing Order Information Remaining Occurrences:0/1 Released orders: SatMar 11, 2019 8:08 AM by: Automatic Batch Process [id number] BLOOD GAS, ARTERIAL [#[id number]] Priorit y: Routine Class: ER Collect Specimen Source: Arterial Blood Specimen Collected: 03/11/2019 8:08 AM Resulting Agency: [facility] Test ID: ABGG1 Released on: 03/11/2019 8:08 AM [id number] LACTIC ACID [#[id number]] Priority: STAT Class: ER Collect Standing Orde r Information Remaining Occurrences:0/1 Interval:ONE TIME Last released:03/11/2019 Rel eased orders: SatMar 11, 2019 9:22 AM by: MALOU BLAND [id number] LACTIC ACID [#[id number]] Priority: STAT Class: ER Collect Specimen Collected: 03/11/2019 9:30 AM Alice medina Agency: [facility] Test ID: LAC Released on: 03/11/2019 9:22 AM [id number] BERNY C MONITOR - ED ONLY [#[id number]] Priority: STAT Class: Hospital Performed Standing Order Inf ormation Remaining Occurrences:0/1 Interval:Continuous Last released:03/11/2019 Releas ed orders: SatMar 11, 2019 3:55 AM by: JESSIE NEUMANN Type: -> Bedside [id number] VITAL SIGNS [#[id number]] Priority: Routine Class: Hospital Performed Standing Or bassem Information Remaining Occurrences:0/1 Interval:EVERY HOUR Last released:03/11/2019 Released orders: SatMar 11, 2019 3:55 AM by: JESSIE NEUMANN [id number] STRICT I & O [#[id number]] Priority: Routine Class: Hospital Performed Standing Order Information Remaining Occurrences:0/1 Interval:CONTINUOUS Last released:03/11/2019 Released orders : SatMar 11, 2019 3:55 AM by: JESSIE NEUMANN [id number] NEUROLOGIC STATUS ASSESSMENT [#[id number]] Priority: Routine Class: Hospital Performed Standing Order Information Remainin g Occurrences:0/1 Interval:EVERY HOUR Last released:03/11/2019 Released orders : SatMar 11, 2019 3:55 AM by: JESSIE NEUMANN [id number] STARCH AND PROSIZE MIXER - ED ONLY [#[id number]] Priority: STAT Class: Hospital Performed Type: -> Bedside Released on: 019 3:55 AM [id number] VITAL SIGNS [#[id number]] Priority: STAT Class: H ospital Performed Released on: 03/11/2019 3:55 AM [id number] STRICT I & O [#[id number]] Priority: STAT Class: Hospital Performed Released on: 03/11/2019 3:55 AM [id number] NEUROLOGIC STATUS ASSESSMENT [#[id number]] Priority: STAT Class: Hospital Performed Released on: 03/11 3:55 AM [id number] CARDIAC MONITORING [#[id number]] Priority: STAT Class: H ospital Performed Standing Order Information Remaining Occurrences:0/1 Interval: s 24 Hours Last released:03/11/2019 Released orders: SatMar 11, 2019 6:38 AM by: MILI HILLS Type: -> Bedside [id number] CARDIAC MONITORING [#[id number]] Priority: STAT C lass: Hospital Performed Type: -> Bedside Released on: 03/11/2019 6:38 AM [id number] XR CHEST P ORT [#[id number]] Priority: STAT Class: Hospital Performed Standing Order Inf ormation Remaining Occurrences:0/1 Interval:ONE TIME Last released:03/11/2019 Released orders: SatMar 11, 2019 3:55 AM by: JESSIE NEUMANN Reason for Exam -> Sepsis [id number] XR CHEST PORT [#[id number]] Priority: STAT Class: Hospital Performed Specimen Co llected: 03/11/2019 8:16 AM Resulting Agency: [facility] Test ID: [id number] Reason for Exam -> Sepsis Released on: 03/11/2019 3:55 AM [id number] EKG, 12 LEAD, INITIAL [#[id number]] Priority: STA T Class: Hospital Performed Standing Order Information Remaining Occurrences:0/1 Inter seema:ONE TIME Last released:03/11/2019 Released orders: SatMar 11, 2019 3:55 AM by: JESSIE ZHENG Reason for Exam: - > Sepsis [id number] EKG, 12 LEAD, INITIAL [#[id number]] Priority: STAT Class: Hospital Performed Specimen Collected: 03/11/2019 4:09 AM Resulting Agency: [facility] Test ID: [id number] Reason for Exam: -> Sepsis Released on: 03/11/2019 3:55 AM [id number] SALINE LOCK IV [#[id number]] Priority: STAT Class: Hospital Performed Standing Order Inf ormation Remaining Occurrences:0/1 Interval:ONE TIME Last released:03/11/2019 Released orders: SatMar 11, 2019 3:55 AM by: JESSIE NEUMANN [id number] SALINE LOCK IV [#[id number]] Priority: STAT Class: Hospital Performed Released on: 03/11/2019 3:55 AM SODIUM CHLORIDE 0.9 % IJ SYRG [#[id number]] Priority: STAT Class: Normal ACETAMINOPHEN 3 25 MG TABLET [#[id number]] Priority: STAT Class: Normal METHYLPREDNISOLONE (PF) 40 MG/ML IJ * [#[id number]] Priority: STAT Class: Normal VANCOMYCIN IVPB < 1.5 GM [#[id number]] Priority: STAT Class: Normal Antibiotic Indications -> Pneumonia (HAP) HAP duration of the rapy -> Other Cmt: once SODIUM CHLORIDE 0.9 % IV [#[id number]] Priority: STAT Class: N ormal CON3 IP CONSULT TO FAMILY PRACTICE [#[id number]] Priority: STAT Class: Hospital Performe d Standing Order Information Remaining Occurrences:0/1 Interval:ONE TIME Last released:05/11/2018 Released orders: SatMar 11, 2019 5:58 AM by: JESSIE NEUMANN Reason for Co nsult: -> pneumonia Did you call or speak to the consulting provider? -> No Consult To -> Olivia rivera Schedule When? -> TODAY CON3 IP CONSULT TO FAMILY PRACTICE [#[id number]] Priority: STAT C lass: Hospital Performed Comment:Dr Neumann spoke w Dr Hills Reason for Consult: -> pneumonia D id you call or speak to the consulting provider? -> No Consult To -> Reinier Schedule When? -> TODAY Released on: 03/11/2019 5:58 AM [id number] INITIAL PHYSICIAN ORDER: INPATIENT [#[id number]] Priority: R outine Class: ADT Pend Transfer [...] -> Extended Care Facility (e.g. Adult Home, Jail, etc.) [id number] INITIAL PHYSICIAN ORDER: INPATIENT [#[id number]] Priority: Routine Class : ADT Pend Transfer [...] -> Extended Care Facility (e.g. Adult Home, Jail, etc.) Released on: 03/11/2019 6:38 AM CON54 IP CONSULT TO PULMONOLOGY [#[id number]] Priority: Routine Class: Hospital Performed Standing Order Information Remainin g Occurrences:0/1 Interval:ONE TIME Last released:03/11/2019 Released orders : SatMar 11, 2019 6:41 AM by: MILI HILLS Reason for Consult: -> acute respiratory failur e Did you call or speak to the consulting provider? -> No Consult To -> Dr Monae Schedule en? -> TODAY CON54 IP CONSULT TO PULMONOLOGY [#[id number]] Priority: Routine Class : Hospital Performed Comment:Dr Monae is aware of pt Reason for Consult: -> acute respiratory failur e Did you call or speak to the consulting provider? -> No Consult To -> Dr Monae Schedule Wh en? -> TODAY Released on: 03/11/2019 6:41 AM [id number] NON-INVASIVE POSITIVE PRESSURE VENTI* [#[id number]] Priority: STAT Class: Hospital Performed Standing Order Information Remaining Occurrences:1 /1 Interval: NEEDED Comment:03/20 ,rate 16 , fio2 100 Type -> Adult/Pediatric Indication for use -> Acute Have the absolute and relative contraindications for NIPPV beenconsidered (hyperlink abov e)? -> Yes Mode -> Continuous Positive Airway Pressure (CPAP)Evelio Carlin#: [id number] * Rm: 346-02Ht: 5' 2" Wt: 135 lb Code: Prior Iso:Diagnosis:Acu te respiratory failure with hypoxia (HCC) [J96.01]Allergies: No Known Allergies -------- Current as of: 03/11/19 0947 GI=Given IC=IV Complet ed NB=New Bag --albuterol-ipratropium (DUO-NEB) 2.5 MG-0.5 MG/3 ML #[id number] Admin Amount: 3 mL Ordered Dose: 3 mL Route: Nebulization Freq: NOW Start Date: 11/07/18 No administration times (back 96 hours, ahead 96 hours). ------methylPREDNISolone (PF) (Solu-MEDROL) injection 125 mg #[id number] Admin Amount: 2 mL = 125 mg of 125 mg/2 mL Ordered Dose: 125 mg Route: Int raVENous Freq: NOW Start Date: 11/07/18 No administration times (back 96 hours, ahe ad 96 hours). ------cefTRIAXone (ROCEPHIN) 1 g in 0.9% sodium chloride (MBP/ADV) 50 m L M*#[id number] Admin Amount: 1 g Ordered Dose: 1 g Route: IntraVENous Freq: NOW Start Date: 11/07/18 Rate: 100 mL/hr Duration: 30 Minutes No administration times (back 96 hours, ahead 96 hours). ------azithromycin (ZITHROMAX) 500 mg in NS 250 mL #[id number] Admin Amount: 250 mL = 500 mg of 500 mg/250 mL Ordered Dose: 500 mg Route: Int raVENous Freq: NOW Start Date: 11/07/18 Rate: 250 mL/hr Duration: 6 0 Minutes No administration times (back 96 hours, ahead 96 hours). ------iopamidol (ISOVUE-370) 76 % injection 100 mL #[id number] Admin Amount: 100 mL Ordered Dose: 100 mL Route: IntraVENous Freq: RAD ONCE Start Date: 11/07/18 No administration times (back 96 hours, ahead 96 hours). ------sodium chloride 0.9 % bolus infusion 500 mL #[id number] Admin Amount: 500 mL Ordered Dose: 500 mL Route: IntraVENo us Freq: ONCE Start Date: 11/08/18 Rate: 666.7 mL/hr Duration: 45 Danielle tasha No administration times (back 96 hours, ahead 96 hours). ------ALPRAZolam (XANAX) tablet 0.25 mg #[id number] Admin Amount: 1 Tab (1 x 0.25 mg Tab) Ordered Dose: 0.25 mg Route: Oral Dg q: DAILY Start Date: 11/08/18 No administration times (back 96 hours, ahead 96 hours).Evelio Garnett MR#: [id number] * Rm: 346-02Ht: 5' 2" Wt: 135 lb Cod e: Prior Iso:Diagnosis:Acute respiratory failure with hypoxia (HCC) [J96.01]Allergies: No Known Allergies -------- Current as of: 03/11/19 0947 GI=Given IC=IV Complet ed NB=New Bag --cefTRIAXone (ROCEPHIN) 1 g in 0.9% sodium chloride (MBP/ADV) 50 mL M*# [id number] Admin Amount: 1 g Ordered Dose: 1 g Route: IntraVENous Freq: EVERY 24 HOURS Start Date: 11/08/18 Rate: 100 mL/hr Duration: 30 Minutes No administration times (back 96 hours, ahead 96 hours). ------azithromycin (ZITHROMAX) 500 mg in 0.9% sodium chloride 250 mL IV PB #[id number] Admin Amount: 500 mg Ordered Dose: 500 mg Route: IntraVENous Freq: EVERY 24 H OURS Start Date: 11/08/18 Rate: 250 mL/hr Duration: 60 Minutes No administration times (back 96 hours, ahead 96 hours). ------LORazepam (ATIVAN) injection 0.5 mg #[id number] Admin Amount: 0.25 mL = 0.5 mg of 2 mg/mL Ordered Dose: 0.5 mg Ro [place]: IntraVENous Freq: ONCE Start Date: 11/10/18 No administration times (back 96 hours, ahead 96 hours). ------LORazepam (ATIVAN) injection 2 mg #[id number] Admin Amount: 1 mL = 2 mg of 2 mg/mL Ordered Dose: 2 mg Route: Int raVENous Freq: ONCE Start Date: 11/11/18 No administration times (back 96 hours, ahe ad 96 hours). ------LORazepam (ATIVAN) injection 0.5 mg #[id number] Admin Amount: 0.25 mL = 0.5 mg of 2 mg/mL Ordered Dose: 0.5 mg Ro [place]: IntraVENous Freq: ONCE Start Date: 11/11/18 No administration times (back 96 hours, ahead 96 hours). ------acetaminophen (OFIRMEV) infusion 1,000 mg #[id number] Admin Amount: 100 mL = 1,000 mg of 1,000 mg/100 mL Ordered Dose: 1,000 mg Ro [place]: IntraVENous Freq: EVERY 6 HOURS Start Date: 11/17/18 Rate: 400 mL/hr Durat ion: 15 Minutes No administration times (back 96 hours, ahead 96 hours). ------HYDROmorphone (DILAUDID) syringe 0.5 mg #[id number] Admin Amount: 0.5 mL = 0.5 mg of 0.5 mg/0.5 mL Ordered Dose: 0.5 mg Route: Int raVENous Freq: EVERY 6 HOURS NEEDED Start Date: 11/17/18 No administration times (back 96 hours, ahe ad 96 hours).Evelio Carlin MR#: [id number] * Rm: 346-02Ht: 5' 2" Wt: 1 35 lb Code: Prior Iso:Diagnosis:Acute respiratory failure with hypoxia (HCC) [J96.01]Aller gies: No Known Allergies -------- Current as of: 03/11/19 0947 GI=Given IC=IV Complet ed NB=New Bag --acetaminophen (OFIRMEV) infusion 1,000 mg #[id number] Admin Amount: 100 mL = 1,000 mg of 1,000 mg/100 mL Ordered Dose: 1,000 mg Ro [place]: IntraVENous Freq: EVERY 6 HOURS Start Date: 11/18/18 Rate: 400 mL/hr Durat ion: 15 Minutes No administration times (back 96 hours, ahead 96 hours). ------piperacillin-tazobactam (ZOSYN) 3.375 g in 0.9% sodium chloride (MBP*#[id number] Admin Amount: 3.375 g Ordered Dose: 3.375 g Route: IntraVENous Freq: EVERY 8 HOURS Start Date: 11/18/18 Rate: 25 mL/hr Duration: 240 Minutes No administrati on times (back 96 hours, ahead 96 hours). ------potassium chloride 10 mEq in 100 ml IVPB #[id number] Admin Amount: 100 mL = 10 mEq of 10 mEq/100 mL Ordered Dose: 10 mEq Route: Int raVENous Freq: EVERY 1 HOUR Start Date: 11/19/18 Rate: 100 mL/hr Duration: 6 0 Minutes No administration times (back 96 hours, ahead 96 hours). ------diatrizoate tiffani-diatrizoat sod (RUTHYGASTROVIEW,GASTRO GRAFIN) 66-10 % *#[id number] Admin Amount: 30 mL Ordered Dose: 30 mL Route: Oral Freq: RAD O NCE Start Date: 11/19/18 No administration times (back 96 hours, ahead 96 hours). ------acetaminophen (OFIRMEV) infusion 1,000 mg #[id number] Admin Amount: 100 mL = 1,000 mg of 1,000 mg/100 mL Ordered Dose: 1,000 mg Ro [place]: IntraVENous Freq: EVERY 6 HOURS Start Date: 11/21/18 Rate: 400 mL/hr Durat ion: 15 Minutes No administration times (back 96 hours, ahead 96 hours). ------acetaminophen (OFIRMEV) infusion 1,000 mg #[id number] Admin Amount: 100 mL = 1,000 mg of 1,000 mg/100 mL Ordered Dose: 1,000 mg Ro [place]: IntraVENous Freq: EVERY 6 HOURS Start Date: 11/22/18 Rate: 400 mL/hr Durat ion: 15 Minutes No administration times (back 96 hours, ahead 96 hours). ------LORazepam (ATIVAN) tablet 0.5 mg #[id number] Admin Amount: 1 Tab (1 x 0.5 mg Tab) Ordered Dose: 0.5 mg Route: Per G Tube F req: EVERY BEDTIME Start Date: 11/23/18 No administration times (back 96 hours, ahead 96 hours).Evelio Garnett MR#: [id number] * Rm: 346-02Ht: 5' 2" Wt: 135 lb Cod e: Prior Iso:Diagnosis:Acute respiratory failure with hypoxia ([facility]) [J96.01]Allergies: No Known Allergies -------- Current as of: 03/11/19 0947 GI=Given IC=IV Complet ed NB=New Bag --vancomycin (VANCOCIN) 1,250 mg in 0.9% sodium chloride 250 mL IVPB #[id number] Admin Amount: 1,250 mg Ordered Dose: 1,250 mg Route: IntraVENous Freq: EVERY 12 HO URS Start Date: 11/24/18 Rate: 125 mL/hr Duration: 120 Minutes No administration times (back 96 hours, ahead 96 hours). ------potassium chloride (KLOR-CON) packet for solution 20 mEq #[id number] Admin Amount: 1 Packet (1 x 20 mEq Packet) Ordered Dose: 20 mEq Ro [place]: Oral Freq: 2 TIMES DAILY WITH MEALS Start Date: 11/25/18 No administration times (back 96 hours, ahe ad 96 hours). ------piperacillin-tazobactam (ZOSYN) 3.375 g in 0.9% sodium chloride (MBP*#[id number] Admin Amount: 3.375 g Ordered Dose: 3.375 g Route: IntraVENous Freq: NOW Start Date: 12/12/18 Rate: 200 mL/hr Duration: 30 Minutes No administrati on times (back 96 hours, ahead 96 hours). ------albuterol-ipratropium (DUO-NEB) 2.5 MG-0.5 MG/3 ML #[id number] Admin Amount: 3 mL Ordered Dose: 3 mL Route: Nebulization Freq: NOW Start Date: 12/12/18 No administration times (back 96 hours, ahead 96 hours). ------methylPREDNISolone (PF) (Solu-MEDROL) injection 125 mg #[id number] Admin Amount: 2 mL = 125 mg of 125 mg/2 mL Ordered Dose: 125 mg Route: Int raVENous Freq: NOW Start Date: 12/12/18 No administration times (back 96 hours, ahe ad 96 hours). ------albuterol-ipratropium (DUO-NEB) 2.5 MG-0.5 MG/3 ML #[id number] Admin Amount: 3 mL Ordered Dose: 3 mL Route: Nebulization Freq: NOW Start Date: 12/12/18 No administration times (back 96 hours, ahead 96 hours). ------albuterol-ipratropium (DUO-NEB) 2.5 MG-0.5 MG/3 ML #[id number] Admin Amount: 3 mL Ordered Dose: 3 mL Route: Nebulization Freq: NOW Start Date: 12/12/18 No administration times (back 96 hours, ahead 96 hours).Ivelisse Carlin MR#: [id number] * Rm: 346-02Ht: 5' 2" Wt: 135 lb Code: Prior Iso:Diagnosis:Acute respiratory failure with hypoxia ([facility]) [J96.01]Allergies: No Known Allergies -------- Current as of: 03/11/19 0947 GI=Given IC=IV Complet ed NB=New Bag -- Followed by [facility] (Order count: 2)sodium chloride 0.9 % jeff aspen infusion 1,000 mL #[id number] Admin Amount: 1,000 mL Ordered Dose: 1,000 [...] chloride 0.9 % bolus infusion 593 mL #[id number] Admin Amount: 593 mL Ordere d Dose: 593 mL Route: IntraVENous Freq: ONCE Start Date: 12/12/18 No adm inistration times (back 96 hours, ahead 96 hours). ------iopamidol (ISOVUE-370) 76 % injection 125 mL #[id number] Admin Amount: 125 mL Ordered Dose: 125 mL Route: IntraVENous Freq: RAD ONCE Start Date: 12/17/18 No administration times (back 96 hours, ahead 96 hours). ------lidocaine (XYLOCAINE) 20 mg/mL (2 %) injection 100 mg #[id number] Admin Amount: 5 mL = 100 mg of 2,000 mg/100 mL Ordered Dose: 5 mL Route: IntraDERMal Freq: ONCE Start Date: 12/19/18 No administration times (b ack 96 hours, ahead 96 hours). ------oxyCODONE-acetaminophen (PERCOCET) 5-325 mg per tablet 1 Tab #[id number] Admin Amount: 1 Tab Ordered Dose: 1 Tab Route: Oral Freq: EVERY 8 HOURS NEEDED Start Date: 12/19/18 No administration times (back 96 hours, ahead 96 hours). ------furosemide (LASIX) injection 20 mg #[id number] Admin Amount: 2 mL = 20 mg of 10 mg/mL Ordered Dose: 20 mg Ro [place]: IntraVENous Freq: ONCE Start Date: 12/26/18 No administration times (back 96 hours, ahead 96 hours). ------furosemide (LASIX) injection 20 mg #[id number] Admin Amount: 2 mL = 20 mg of 10 mg/mL Ordered Dose: 20 mg Route: Int raVENous Freq: ONCE Start Date: 12/29/18 No administration times (back 96 hours, ahe ad 96 hours).Evelio Carlin MR#: [id number] * Rm: 346-02Ht: 5' 2" Wt: 1 35 lb Code: Prior Iso:Diagnosis:Acute respiratory failure with hypoxia (HCC) [J96.01]Aller gies: No Known Allergies -------- Current as of: 03/11/19 0947 GI=Given IC=IV Complet ed NB=New Bag --albuterol-ipratropium (DUO-NEB) 2.5 MG-0.5 MG/3 ML #[id number] Admin Amount: 3 mL Ordered Dose: 3 mL Route: Nebulization Freq: NOW Start Date: 01/10/19 No administration times (back 96 hours, ahead 96 hours). ------methylPREDNISolone (PF) (Solu-MEDROL) injection 125 mg #[id number] Admin Amount: 2 mL = 125 mg of 125 mg/2 mL Ordered Dose: 125 mg Route: Int raVENous Freq: NOW Start Date: 01/10/19 No administration times (back 96 hours, e ad 96 hours). ------albuterol-ipratropium (DUO-NEB) 2.5 MG-0.5 MG/3 ML #[id number] Admin Amount: 3 mL Ordered Dose: 3 mL Route: Nebulization Freq: NOW Start Date: 01/10/19 No administration times (back 96 hours, ahead 96 hours). ------acetaminophen (TYLENOL) tablet 650 mg #[id number] Admin Amount: 2 Tab (2 x 325 mg Tab) Ordered Dose: 650 mg Route: Per G Tub e Freq: NOW Start Date: 01/10/19 No administration times (back 96 hours, e ad 96 hours). ------piperacillin-tazobactam (ZOSYN) injection 3.375 g #[id number] Admin Amount: 3.375 g Ordered Dose: 3.375 g Route: IntraVENous Freq: NOW Start Date: 01/10/19 No administration times (back 96 hours, ahead 96 hours). ------vancomycin (VANCOCIN) 1,000 mg in 0.9% sodium chloride 250 mL IVPB #[id number] Admin Amount: 1,000 mg Ordered Dose: 1,000 mg Route: IntraVENous Freq: ONCE Start Date: 01/10/19 Rate: 125 mL/hr Duration: 120 Minutes No administ ration times (back 96 hours, ahead 96 hours). ------ Followed by [facility] (Order count: 2)sodium chloride 0. 9 % bolus infusion 1,000 mL #[id number] Admin Amount: 1,000 mL Ordered Dose: 1,000 mL Route: IntraVENous Freq: ONCE Start Date: 01/10/19 No administration t imes (back 96 hours, ahead 96 hours).Evelio Carlin MR#: [id number] * Rm: 34 09-14Ht: 5' 2" Wt: 135 lb Code: Prior Iso:Diagnosis:Acute respiratory failure with hypoxia ([facility]) [J96.01]Allergies: No Known Allergies -------- Current as of: 03/11/19 0947 GI=Given IC=IV Complet ed NB=New Bag - Followed by - - - - - - - - - - - - - - - - - - - - - - - - - - - - - - - -sodium chloride 0 .9 % bolus infusion 551 mL #[id number] Admin Amount: 551 mL Ordered Dose: 551 mL Route: IntraVENous Freq: ONCE Start Date: 01/10/19 No administration t imes (back 96 hours, ahead 96 hours). ------0.9% sodium chloride (MBP/ADV) infusion #[id number] Ordered Dose: Route: Freq: Start Date: No administration times (back 96 hours, ahead 96 hours). ------influenza vaccine (65 yrs+)(PF) (FLUZONE HIGH-DOSE) inject io*#[id number] Admin Amount: 0.5 mL Ordered Dose: 0.5 mL Route: IntraMUSCular Freq: PRIOR TO DISCHARGE Start Date: 01/10/19 No administration times (back 96 hours, ahead 96 hours). ------piperacillin-tazobactam (ZOSYN) 3.375 g in 0.9% sodium chloride ([facility]*#[id number] Admin Amount: 3.375 g Ordered Dose: 3.375 g Route: IntraVENous Freq: EVERY 8 HOURS Start Date: 01/10/19 Rate: 25 mL/hr Duration: 240 Minutes No administrat ion times (back 96 hours, ahead 96 hours). ------potassium, sodium phosphates (NEUTRA-PHOS) packet 1 Packet #[id number] Admin Amount: 1 Packet Ordered Dose: 1 Packet Route: Per G Tube Freq: 4 TIMES DAILY Start Date: 01/12/19 No administration times (back 96 hours, ahead 96 hours). ------iopamidol (ISOVUE 300) 61 % contrast injection 100 mL #[id number] Admin Amount: 100 mL Ordered Dose: 100 mL Route: IntraVENous Freq: RAD ONCE Start Date: 01/15/19 No administration times (back 96 hours, ahead 96 hours). ------sodium phosphate 15 mmol in 0.9% sodium chlorid e 250 mL infusion #[id number] Ordered Dose: Route: IntraVENous Freq: ONCE Start Date: 01/20/19 Rate: 63.8 mL/hr Duration: 4 Hours No administration patria es (back 96 hours, ahead 96 hours).Evelio Carlin MR#: [id number] * Rm: 34 602Ht: 5' 2" Wt: 135 lb Code: Prior Iso:Diagnosis:Acute respiratory failure with hypoxia ([facility]) [J96.01]Allergies: No Known Allergies -------- Current as of: 03/11/19 0947 GI=Given IC=IV Complet ed NB=New Bag --acetaZOLAMIDE SR (DIAMOX) capsule 500 mg #[id number] Admin Amount: 1 Cap (1 x 500 mg Cap) Ordered Dose: 500 mg Route: Oral Freq: O NCE Start Date: 01/23/19 No administration times (back 96 hours, ahead 96 hours). ------albuterol (PROVENTIL VENTOLIN) nebulizer solution 2.5 mg #[id number] Admin Amount: 3 mL = 2.5 mg of 2.5 mg/3 mL Ordered Dose: 2.5 mg Route: Neb ulization Freq: NOW Start Date: 02/08/19 No administration times (back 96 hours, ahe ad 96 hours). ------albuterol (PROVENTIL VENTOLIN) nebulizer solution 2.5 mg #[id number] Admin Amount: 3 mL = 2.5 mg of 2.5 mg/3 mL Ordered Dose: 2.5 mg Route: Neb ulization Freq: NOW Start Date: 02/08/19 No administration times (back 96 hours, ahe ad 96 hours). ------ Followed by Luis Armando Magana (Order count: 2)sodium chloride 0. 9 % bolus infusion 1,000 mL #[id number] Admin Amount: 1,000 mL Ordered Dose: 1,000 [...] chloride 0.9 % bolus infusion 701 mL #[id number] Admin Amount: 701 mL Orde red Dose: 701 mL Route: IntraVENous Freq: ONCE Start Date: 02/08/19 No administration times (back 96 hours, ahead 96 hours). ------cefepime (MAXIPIME) 2 g in 0.9% sodium chloride (MBP/ADV) 100 mL MBP #[id number] Admin Amount: 2 g Ordered Dose: 2 g Route: IntraVENous Freq: NOW Start Date: 02/08/19 Rate: 200 mL/hr Duration: 30 Minutes No administration times (back 96 hours, ahead 96 hours). ------vancomycin (VANCOCIN) 1,000 mg in 0.9% sodium chloride 250 mL IVPB #[id number] Admin Amount: 1,000 mg Ordered Dose: 1,000 mg Route: IntraVENous Freq: ONCE Start Date: 02/08/19 Rate: 125 mL/hr Duration: 120 Minutes No adminis tration times (back 96 hours, ahead 96 hours).Evelio Carlin MR#: [id number] * Rm: 346-02Ht: 5' 2" Wt: 135 lb Code: Prior Iso:Diagnosis:Acute respiratory failure with hypoxia ([facility]) [J96.01]Allergies: No Known Allergies -------- Current as of: 03/11/19 0947 GI=Given IC=IV Complet ed NB=New Bag --ALPRAZolam (XANAX) tablet 0.25 mg #[id number] Admin Amount: 1 Tab (1 x 0.25 mg Tab) Ordered Dose: 0.25 mg Route: Per G Tub e Freq: 4 TIMES DAILY NEEDED Start Date: 02/08/19 No administration times (back 96 hours, e ad 96 hours). ------cefepime (MAXIPIME) 2 g in 0.9% sodium chloride (MBP/ADV) 100 mL MBP #[id number] Admin Amount: 2 g Ordered Dose: 2 g Route: IntraVENous Freq: EVERY 8 HOUR S Start Date: 02/09/19 Rate: 200 mL/hr Duration: 30 Minutes No administration times (back 96 hours, ahead 96 hours). ------ALPRAZolam (XANAX) tablet 0.25 mg #[id number] Admin Amount: 1 Tab (1 x 0.25 mg Tab) Ordered Dose: 0.25 mg Route: Per G Tub e Freq: 4 TIMES DAILY NEEDED Start Date: 02/14/19 No administration times (back 96 hours, e ad 96 hours). ------propofol (DIPRIVAN) 10 mg/mL injection #[id number] Ordered Dose: Route: Freq: Start Date: 02/16/19 No administration times (back 96 hours, ahead 96 hours). ------midazolam (PF) (VERSED) 1 mg/mL injection #[id number] Ordered Dose: Route: Freq: Start Date: 9 No administration times (back 96 hours, ahead 96 hours). ------albuterol (PROVENTIL VENTOLIN) 2.5 mg /3 mL (0.083 %) nebuliz er river*#[id number] Ordered Dose: Route: Freq: Start Date: 04/18/18 No administration times (back 96 hours, ahead 96 hours). ------albuterol (PROVENTIL VENTOLIN) nebulizer solution 2.5 mg #[id number] Admin Amount: 3 mL = 2.5 mg of 2.5 mg/3 mL Ordered Dose: 2.5 mg Route: Inh alation Freq: NEEDED Start Date: 02/16/19 No administration times (back 96 hours, ahe ad 96 hours). ------ePHEDrine (MISTOLE) 50 mg/mL injection #[id number] Ordered Dose: Route: Freq: Start Date: 02/16/19 No administration times (back 96 hours, ahead 96 hours).Evelio Carlin MR#: [id number] * Rm: 346-02Ht: 5' 2" Wt: 135 lb Code: Prior Iso:Diagnosis:Ac [place] respiratory failure with hypoxia (HCC) [J96.01]Allergies: No Known Allergies -------- Current as of: 03/11/19 0947 GI=Given IC=IV Complet ed NB=New Bag --propofol (DIPRIVAN) 10 mg/mL injection #[id number] Ordered Dose: Route: Freq: Start Date: 02/17/19 No administration times (back 96 hours, ahead 96 hours). ------fentaNYL citrate (PF) 50 mcg/mL injection #[id number] Ordered Dose: Route: Freq: Start Date: No administration times (back 96 hours, ahead 96 hours). ------midazolam (PF) (VERSED) 1 mg/mL injection #[id number] Ordered Dose: Route: Freq: Start Date: 9 No administration times (back 96 hours, ahead 96 hours). ------sodium chloride (NS) flush 5-10 mL #[id number] Admin Amount: 5-10 mL Ordered Dose: 5-10 mL Route: IntraVENous Freq: NE EDED Start Date: 03/11/19 No administration times (back 96 hours, ahead 96 hours). ------acetaminophen (TYLENOL) tablet 975 mg #[id number] Admin Amount: 3 Tab (3 x 325 mg Tab) Ordered Dose: 975 mg Route: Oral Dg q: NOW Start Date: 03/11/19 Administration times (back 96 hours, ahead 96 hours): 03/11/19: 0650GI -----methylPREDNISolone (PF) (SOLU-MEDROL) injection 40 mg #[id number] Admin Amount: 1 mL = 40 mg of 40 mg/mL Ordered Dose: 40 mg Route: IntraVENo us Freq: EVERY 6 HOURS Start Date: 03/11/19 Administration times (back 96 hours, ahe ad 96 hours): 03/11/19: 0652GI 119903/12/19: 59903/13/19: 59903/14/19: 59903/15/19: 599 ---vancomycin (VANCOCIN) 1,000 mg in 0.9% sodium chloride 250 mL IVPB #[id number] Admin Amount: 1,000 mg Ordered Dose: 1,000 mg Route: IntraVENous Freq: ONCE Start Date: 03/11/19 Rate: 125 mL/hr Duration: 120 Minutes Administration t imes (back 96 hours, ahead 96 hours): 03/11/19: 0729NB 0917Evelio Radford#: [id number] * Rm: 346-02Ht: 5' 2" Wt: 135 lb Code: Prior Iso:Diagnosis:Acu te respiratory failure with hypoxia (HCC) [J96.01]Allergies: No Known Allergies -------- Current as of: 03/11/19 0947 GI=Given IC=IV Complet ed NB=New Bag --0.9% sodium chloride infusion # [id number] Ordered Dose: 70 mL/hr Route: IntraVENous Freq: [...] hours as needed for Pain or Fever.Dispense [place] unt:250 mLStart Date:01/24/2019End Date:Doc. Provider: [place] [...] Supporting Document(s ) ID Date Data Source [id number] 03/11/2019 10:07:55 AM [facility] Name Value Range Interpretation Description Data Sup porting Code Source(s) Document(s ) Lactate 1.7 0.4-2.0 [facility] [Moles/volu MMOL/L [facility]] in Hospital Serum or Plasma ID Date Data Source [id number] 03/11/2019 09:20:28 AM [facility] TRANSFER - OUT REPORT:Verbal report give n to Shira PITTS(name) [facility] of [...] Transpa rent 03/11/2019 4:06 AMHub Color/Line Status [place] 03/11/2019 4:06 AMAlcohol Cap Used Yes 03/11/2019 4:06 AMOpportunity for questions and clarification was provided .Patient transported with: [facility] Name Value Range Interpretation Code Description Data Harriett rce(s) Supporting Document(s ) ID Date Data Source [id number] 03/11/2019 09:15:57 AM [facility] assumed care 0700 on stretcher , MR [...] relief provided . NSR - ST on cardiac technician . Completed IV Vancomycin first dose no adverse reaction . Pending admission forcontinue d care . Name Value Range Interpretation Code Description Data [facility] rce(s) Supporting Document(s ) ID Date Data Source [id number] 03/11/2019 08:18:05 AM [facility] CHEST one viewHISTORY: Fever. COPD. Refl ux.COMPARISON: [...] Supporting Document(s ) ID Date Data Source [id number] 03/11/2019 08:09:39 AM EST [facility] Name Value Range Interpretation Description Data Sup porting Code Source(s) Document(s ) pH of Arterial 7.46 7.35-7.4 Above high normal [facility] blood 5 [facility] Carbon dioxide 54 mmHg 32-48 Above high normal [facility] Good [Partial Zoroastrianism pressure] in Hospital Arterial blood Oxygen 86 mmHg 83-108 [facility] - Good [Partial Zoroastrianism pressure] in Hospital Arterial blood Carbon 40 19-24 Above high normal [facility] dioxide, total mmol/L [facility] [Moles/volume] Hospital in Arterial blood Bicarbonate 38 21-28 Above high normal [facility] - od [Moles/volume] mmol/L [facility] in Arterial Hospital blood Oxygen 98 % 94-98 [facility] saturation in [facility] Base excess in 12.3 0-3 Above high normal [facility] Arterial blood mmol/L [facility] by calculation Hospital Body site [facility] NONREBREATHER MASK12 Oxygen/Inspired gas Respiratory system 100.0 % [facility] --on ventilator Service comment [id number] [facility] ID Date Data Source [id number] 03/11/2019 08:07:29 AM [facility] Bedside and Verbal shift change report carol Pollard (oncoming nurse) Yannick (offgoing nurse). Report included the fo llowing information SBAR, EDSummary, MAR and Recent Results. Name Value Range Interpretation Code Description Data Harriett rce(s) Supporting Document(s ) ID Date Data Source [id number] 03/11/2019 07:53:27 AM [facility] J-tube in place. Inserted 02/17/19 accord ing to EMS Name Value Range Interpretation Code Description Data Harriett rce(s) Supporting Document(s ) ID Date Data Source [id number] 03/11/2019 05:52:39 AM EST [facility] Name Value Range Interpretation Description Data Sup porting Code Source(s) Document(s ) Color of Urine YEL [facility] Appearance of CLEAR Abnormal (applies [facility] - Urine to non-numeric Good results) [facility] Specific gravity 1.017 1.003-1. [facility] - of Urine by 030 Good Refractometry [facility] pH of Urine by 8.5 4.6-8.0 Above high normal [facility] - Test strip Good [facility] Protein NEG Abnormal (applies [facility] - [Mass/volume] in to non-numeric Good Urine by Test results) [facility] Glucose NEG [facility] - [Mass/volume] in Good Urine by Zoroastrianism Automated test [facility] strip Ketones NEG [facility] - [Presence] in Good Urine by [facility] strip Bilirubin.total NEG [facility] - [Presence] in Good Urine [facility] Hemoglobin NEG [facility] - [Presence] in Good Urine by Test [facility] Urobilinogen 1.0 0.2-1.0 [facility] - [Presence] in EU/dL Good Urine by [facility]oroastrianism Automated test [facility] strip Nitrite NEG [facility] - [Presence] in Good Urine by [facility]oroastrian[facility] Automated test Hospital strip Leukocyte NEG [facility] - esterase Good [Presence] in Zoroastrianism Urine by Hospital Automated test strip Leukocytes 0-5 [facility] - [Presence] in Good Urine sediment Zoroastrianism by [facility] microscopy Erythrocytes 0-2 [facility] - [#/area] in Good Urine sediment Zoroastrianism by [facility] high power field Epithelial cells 0-10 [facility] - [#/area] in Good Urine sediment Zoroastrianism by [facility] high power field Bacteria NONE [facility] - [Presence] in Good Urine sediment Zoroastrianism by [facility] microscopy Casts [Presence] NONE [facility] - in Urine Good sediment by [facility] Crystals NONE [facility] - [Presence] in Good Urine sediment Zoroastrianism by [facility] microscopy ID Date Data Source [id number] 03/16/2019 06:31:57 AM EST [facility] Name Value Range Interpretation Description Data Sup porting Code Source(s) Document(s ) Service comment [facility] Bacteria [facility] - Good [facility] ID Date Data Source [id number] 03/16/2019 06:31:55 AM EST [facility] Name Value Range Interpretation Description Data Sup porting Code Source(s) Document(s ) Service comment [facility] Bacteria [facility] - Good [facility] by Culture ID Date Data Source [id number] 03/11/2019 04:57:02 AM [facility] Name Value Range Interpretation Description Data Sup porting Code Source(s) Document(s ) Lactate 1.6 0.4-2.0 [facility] - Good [Moles/volu MMOL/L [facility]] in Hospital Serum or Plasma ID Date Data Source [id number] 03/11/2019 04:54:18 AM [facility] Name Value Range Interpretation Description Data Sup porting Code Source(s) Document(s ) Sodium 132 136-145 Below low normal [facility] - Good [Moles/volume] mmol/L [facility]ism in Serum or Hospital Plasma Potassium 3.9 3.5-5.1 [facility] - Good [Moles/volume] mmol/L [facility]ism in Serum or Hospital Plasma Chloride 92 98-107 Below low normal [facility] - Good [Moles/volume] mmol/L [facility]ism in Serum or Hospital Plasma Carbon 40 21-32 Above high normal [facility] - Good dioxide, total mmol/L [facility]ism [Moles/volume] Hospital in Serum or Plasma Anion gap in 4 mmol/L 10-20 Below low normal [facility] - Go od Serum or [facility]ism Plasma Hospital Glucose 94 mg/dL 74-106 [facility] - Good [Mass/volume] Zoroastrianism in Serum or Hospital Plasma Urea nitrogen 11 mg/dL 7-18 [facility] - Good [Mass/volume] Zoroastrianism in Serum or Hospital Plasma Creatinine 0.47 0.70-1.3 Below low normal [facility] - Good [Mass/volume] mg/dL 0 [facility]rianism in Serum or Hospital Plasma Glomerular >60 [facility] - Good filtration Zoroastrianism rate/1.73 sq M Hospital predicted among blacks [Volume Rate/Area] in Serum or Plasma by Creatinine-bas ed formula (MDRD) Glomerular >60 [facility] - Good filtration [facility]astrianism rate/1.73 sq M Hospital predicted among non-blacks [Volume Rate/Area] in Serum or Plasma by Creatinine-bas ed formula (MDRD) (NOTE)Estimated GFR is calculated using the Modification of Diet in RenalDisease (MDRD) Study equation, reported for both Americans(GFRAA) and non- Americans (GFRNA), and normalized to 1.7 7x7lvls surface area. The physician must decide which [...] 8.5-10.1 [facility] - Good Serum or Plasma [facility] ital Bilirubin.total 0.3 mg/dL 0.2-1.0 [facility] - Good [Mass/volume] in Serum or [facility] Plasma Alanine aminotransferase 11 U/L 13-61 Below low normal [facility] - Good [Enzymatic activity/volume] [facility] in Serum or Plasma Aspartate aminotransferase 7 U/L 15-37 Below low normal [facility] - Good [Enzymatic activity/volume] [facility] in Serum or Plasma by With P-5'-P Alkaline phosphatase 66 U/L 45-117 [facility] - G ood [Enzymatic activity/volume] [facility] in Serum or Plasma Protein [Mass/volume] in 6.9 g/dL 6.4-8.2 [facility] - Good Serum or Plasma [facility] ital Albumin [Mass/volume] in 2.7 g/dL 3.5-4.7 Below low normal [facility] - Good Serum or Plasma by [facility] romeo Bromocresol purple (BCP) dye binding method Globulin [Mass/volume] in 4.2 g/dL 1.7-4.7 [facility] - Good Serum by calculation [facility] Albumin/Globulin [Mass 0.6 0.7-2.8 Below low normal [facility] - Good Ratio] in Serum or Plasma [facility] ID Date Data Source [id number] 03/11/2019 04:30:46 AM EST [facility] Name Value Range Interpretation Description Data Sup porting Code Source(s) Document(s ) Leukocytes 18.6 4.8-10.6 Above high normal [facility] - [#/volume] in K/uL Good Blood by [facility] Automated count Hospital Erythrocytes 4.19 4.70-6.0 Below low normal [facility] - [#/volume] in M/uL 0 Good Blood by [facility] Automated count Hospital Hemoglobin 13.4 14.0-18. Below low normal [facility] - [Mass/volume] in g/dL 0 [facility] Blood [facility] Hematocrit 41.2 % 42.0-52. Below low normal [facility] - [Volume 0 Good Fraction] of [facility]rianism Blood by Hospital Automated count Erythrocyte mean 98.3 FL 81.0-94. Above high normal [facility] - corpuscular 0 Good volume [Entitic Zoroastrianism volume] by Hospital Automated count Erythrocyte mean 32.0 PG 27.0-35. [facility] - corpuscular 0 Good hemoglobin Zoroastrianism [Entitic mass] [facility] by Automated count Erythrocyte mean 32.5 30.7-37. [facility] - corpuscular g/dL 3 Good hemoglobin Zoroastrianism concentration [facility] [Mass/volume] by Automated count Erythrocyte 15.9 % 11.5-14. Above high normal [facility] - distribution 0 Good width [Ratio] by [facility] Automated count Hospital Platelets 263 K/uL 130-400 [facility] - [#/volume] in [facility] Blood by [facility] Automated count Hospital Platelet mean 9.2 FL 9.2-11.8 [facility] - volume [Entitic Good volume] in Blood [facility] Automated Hospital count Segmented 81 % 48.0-72. Above high normal [facility] - neutrophils/100 [address] Good [address] in [facility] Lymphocytes/100 9 % 18.0-40. Below low normal [facility] - leukocytes in 0 [facility] Blood [facility] Monocytes/100 10 % 2.0-12.0 [facility] - leukocytes in [facility] Blood [facility] Eosinophils/100 0 % 0.0-7.0 [facility] - leukocytes in [facility] Blood [facility] Basophils/100 0 % 0.0-3.0 [facility] - leukocytes in [facility] Segmented 14.9 1.5-6.6 Above high normal [facility] - neutrophils K/UL Good [#/volume] in [facility] Lymphocytes 1.7 K/UL 1.5-3.5 [facility] - [#/volume] in [facility] Monocytes 1.8 K/UL 0.0-1.0 Above high normal [facility] - [#/volume] in [facility] Eosinophils 0.0 K/UL 0.0-0.7 [facility] - [#/volume] in [facility] Basophils 0.0 K/UL 0.0-0.1 [facility] - [#/volume] in [facility] Differential [facility] - cell count [facility] Immature 1 % 0.0-2.0 [facility] - granulocytes/100 [facility] leukocytes in [facility] by Hospital Automated count ID Date Data Source [id number] 03/11/2019 04:05:35 AM EST [facility] Pt arrived BIBA from Only with c/ o fever, low oxygen saturation and pospneumonia. Pt 98% on non-rebreather. Name Value Range Interpretation Code Description Data Harriett rce(s) Supporting Document(s ) ID Date Data Source [id number] 02/20/2019 01:49:29 PM EST [facility] - [facility] [place], [place] [address]DLECNSG: EVELIO CARLINMRN: [id number]: 1ACCT#: [id number] DATE: 02/08/2019 OPERATIVE REPORTPROCEDURE DATE: 02/17/2019SURGEON: [facility] PH[facility]IAN: Chay Gonzalez.RADIOLOGIC TECH: None.PREOPERATIVE DIAGNOSIS: Percutane ous endoscopic gastrostomy complications.POSTOPERATIVE [...] to be used. Today, I was maria isabel ble toflushwater through nor clean it out [...] 11:40 :29/SG /[id number]_i/v_hsuka_pJob #: [id number] / [id number] Name Value Range Interpretation Code Description Data Harriett rce(s) Supporting Document(s ) ID Date Data Source [id number] 02/20/2019 08:55:47 AM EST [facility] The history is provided by a caregiver.1 2:25 PM: Evelio Carlin is a 68 y.o. 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 The patient was sent to the ED from [facility], for a clogged J-tube that was placed on 02/17/2019. , the physician at the intermediate, reports the tube became cloggedtoday after the [...] was later given crushed pills at his intermediate whichp ossibly caused the blockage.2:[address] Trejo (Gastroenterology) was able to unclog th e feeding tube andstates the patient can return to the intermediate.2:59 PM: Siri ent was reassessed prior to [...] 250 mg/5 mL (5 mL) soln oral [id number] mg by Per G Tube route every [...] 36N*ENCOUNTER 02/19/2019 04:22:36 PM EST [facility] [id number] [facility] EMERGENCY [facility]PARTMENT [address] [facility] [address] [phone] Evelio Carlin (Male) [id number] I 3 ED Dispo:DISCHARGE Chief Complaint: Feeding Tube Problem Diagnosis: Clogged feeding tube [] Current Providers: Attending: Joao Powell Consulting Provider: Cristina Trejo Primary Nurse: Taylor Rosado ACSN: [id number] [employer] [phone] - [facility] Ed Medva MrNJRN: [id number] [employer] [phone] [id number] - [facility] Ed Medva Age SexDOB 1950 AGE 68 SEX Male Primary Care Provider: Mili Hills DO Byexnrfmg: (No Known Allergies)Date Reviewed: 02/19/2019Reviewed by: Moustapha, Danny, RN - Review CompleteED Provider Notes: No notes of this type exist for this encounter.ED Orders CON68 IP CO NSULT TO GASTROENTEROLOGY [#[id number]] Priority: STAT Class: Hospital Performed Standing Order Inf ormation Remaining Occurrences:0/1 Interval:ONE TIME Last released:02/19/2019 Released orders: Caro Feb 19, 2019 12:37 PM by: LISA POWELL Reason for Consult: -> feeding tube dsyf unction Did you call or speak to the consulting provider? -> No Consult To -> Harrison Schedule Wh en? -> TODAY CON68 IP CONSULT TO GASTROENTEROLOGY [#[id number]] Priority: STAT Class: H ospital Performed Reason for Consult: -> feeding tube dsyfunction Did you call or speak to the consult ing provider? -> No Consult To -> Schedule When? -> TODAY Released on: 02/19/2019 12:37 P Evelio Pemberton MR#: [id number] * Rm: [id number]: 5' 2" Wt: 135 lb Co de: Prior Iso:Diagnosis:Allergies: No Known Allergies -------- Current as of: 02/19/19 1622 GI=Given OP=Override p ull for Anesthesia ---------albuterol-ipratropium (DUO-NEB) 2.5 MG-0.5 MG/3 ML #[id number] Admin Amount: 3 mL Ordered Dose: 3 mL Route: Nebulization Freq: NOW Start Date: 11/07/18 No administration times (back 96 hours, ahead 96 hours). ------methylPREDNISolone (PF) (Solu-MEDROL) injection 125 mg #[id number] Admin Amount: 2 mL = 125 mg of 125 mg/2 mL Ordered Dose: 125 mg Route: Int raVENous Freq: NOW Start Date: 11/07/18 No administration times (back 96 hours, ahe ad 96 hours). ------cefTRIAXone (ROCEPHIN) 1 g in 0.9% sodium chloride (MBP/ADV) 50 m L M*#[id number] Admin Amount: 1 g Ordered Dose: 1 g Route: IntraVENous Freq: NOW Start Date: 11/07/18 Rate: 100 mL/hr Duration: 30 Minutes No administration times (back 96 hours, ahead 96 hours). ------azithromycin (ZITHROMAX) 500 mg in NS 250 mL #[id number] Admin Amount: 250 mL = 500 mg of 500 mg/250 mL Ordered Dose: 500 mg Route: Int raVENous Freq: NOW Start Date: 11/07/18 Rate: 250 mL/hr Duration: 6 0 Minutes No administration times (back 96 hours, ahead 96 hours). ------iopamidol (ISOVUE-370) 76 % injection 100 mL #[id number] Admin Amount: 100 mL Ordered Dose: 100 mL Route: IntraVENous Freq: RAD ONCE Start Date: 11/07/18 No administration times (back 96 hours, ahead 96 hours). ------sodium chloride 0.9 % bolus infusion 500 mL #[id number] Admin Amount: 500 mL Ordered Dose: 500 mL Route: IntraVENo us Freq: ONCE Start Date: 11/08/18 Rate: 666.7 mL/hr Duration: 45 Danielle tasha No administration times (back 96 hours, ahead 96 hours). ------ALPRAZolam (XANAX) tablet 0.25 mg #[id number] Admin Amount: 1 Tab (1 x 0.25 mg Tab) Ordered Dose: 0.25 mg Route: Oral Dg q: DAILY Start Date: 11/08/18 No administration times (back 96 hours, ahead 96 hours).Evelio Garnett MR#: [id number] * Rm: [id number]: 5' 2" Wt: 135 lb Co de: Prior Iso:Diagnosis:Allergies: No Known Allergies -------- Current as of: 02/19/19 1622 GI=Given OP=Override p ull for Anesthesia ---------cefTRIAXone (ROCEPHIN) 1 g in 0.9% sodium chloride (MBP/ADV) 50 mL M*#[id number] Admin Amount: 1 g Ordered Dose: 1 g Route: IntraVENous Freq: EVERY 24 HO URS Start Date: 11/08/18 Rate: 100 mL/hr Duration: 30 Minutes No administration times (back 96 hours, ahead 96 hours). ------azithromycin (ZITHROMAX) 500 mg in 0.9% sodium chloride 250 mL IV PB #[id number] Admin Amount: 500 mg Ordered Dose: 500 mg Route: IntraVENous Freq: EVERY 24 H OURS Start Date: 11/08/18 Rate: 250 mL/hr Duration: 60 Minutes No administration times (back 96 hours, ahead 96 hours). ------LORazepam (ATIVAN) injection 0.5 mg #[id number] Admin Amount: 0.25 mL = 0.5 mg of 2 mg/mL Ordered Dose: 0.5 mg Ro shoalwater: IntraVENous Freq: ONCE Start Date: 11/10/18 No administration times (back 96 hours, ahead 96 hours). ------LORazepam (ATIVAN) injection 2 mg #[id number] Admin Amount: 1 mL = 2 mg of 2 mg/mL Ordered Dose: 2 mg Route: Int raVENous Freq: ONCE Start Date: 11/11/18 No administration times (back 96 hours, ahe ad 96 hours). ------LORazepam (ATIVAN) injection 0.5 mg #[id number] Admin Amount: 0.25 mL = 0.5 mg of 2 mg/mL Ordered Dose: 0.5 mg Ro shoalwater: IntraVENous Freq: ONCE Start Date: 11/11/18 No administration times (back 96 hours, ahead 96 hours). ------acetaminophen (OFIRMEV) infusion 1,000 mg #[id number] Admin Amount: 100 mL = 1,000 mg of 1,000 mg/100 mL Ordered Dose: 1,000 mg Ro shoalwater: IntraVENous Freq: EVERY 6 HOURS Start Date: 11/17/18 Rate: 400 mL/hr Durat ion: 15 Minutes No administration times (back 96 hours, ahead 96 hours). ------HYDROmorphone (DILAUDID) syringe 0.5 mg #[id number] Admin Amount: 0.5 mL = 0.5 mg of 0.5 mg/0.5 mL Ordered Dose: 0.5 mg Route: Int raVENous Freq: EVERY 6 HOURS NEEDED Start Date: 11/17/18 No administration times (back 96 hours, ahe ad 96 hours).Evelio Carlin MR#: [id number] * Rm: [id number]: 5' 2" Wt: 135 lb Code: Prior Iso:Diagnosis:Allergies: No Known Allergies -------- Current as of: 02/19/19 1622 GI=Given OP=Override p ull for Anesthesia ---------acetaminophen (OFIRMEV) infusion 1,000 mg #[id number] Admin Amount: 100 mL = 1,000 mg of 1,000 mg/100 mL Ordered Dose: 1,000 mg Route: IntraVENous Freq: EVERY 6 HOURS Start Date: 11/18/18 Rate: 400 mL/hr Duration: 15 Minutes No administration times (back 96 hours, ahead 96 hours). ------piperacillin-tazobactam (ZOSYN) 3.375 g in 0.9% sodium chloride (MBP*#[id number] Admin Amount: 3.375 g Ordered Dose: 3.375 g Route: IntraVENous Freq: EVERY 8 HOURS Start Date: 11/18/18 Rate: 25 mL/hr Duration: 240 Minutes No administrati on times (back 96 hours, ahead 96 hours). ------potassium chloride 10 mEq in 100 ml IVPB #[id number] Admin Amount: 100 mL = 10 mEq of 10 mEq/100 mL Ordered Dose: 10 mEq Route: Int raVENous Freq: EVERY 1 HOUR Start Date: 11/19/18 Rate: 100 mL/hr Duration: 6 0 Minutes No administration times (back 96 hours, ahead 96 hours). ------diatrizoate tiffani-diatrizoat sod (RUTHYGASTROVIEW,GASTRO GRAFIN) 66-10 % *#[id number] Admin Amount: 30 mL Ordered Dose: 30 mL Route: Oral Freq: RAD O NCE Start Date: 11/19/18 No administration times (back 96 hours, ahead 96 hours). ------acetaminophen (OFIRMEV) infusion 1,000 mg #[id number] Admin Amount: 100 mL = 1,000 mg of 1,000 mg/100 mL Ordered Dose: 1,000 mg Ro shoalwater: IntraVENous Freq: EVERY 6 HOURS Start Date: 11/21/18 Rate: 400 mL/hr Durat ion: 15 Minutes No administration times (back 96 hours, ahead 96 hours). ------acetaminophen (OFIRMEV) infusion 1,000 mg #[id number] Admin Amount: 100 mL = 1,000 mg of 1,000 mg/100 mL Ordered Dose: 1,000 mg Ro shoal[place]: IntraVENous Freq: EVERY 6 HOURS Start Date: 11/22/18 Rate: 400 mL/hr Durat ion: 15 Minutes No administration times (back 96 hours, ahead 96 hours). ------LORazepam (ATIVAN) tablet 0.5 mg #[id number] Admin Amount: 1 Tab (1 x 0.5 mg Tab) Ordered Dose: 0.5 mg Route: Per G Tube F req: EVERY BEDTIME Start Date: 11/23/18 No administration times (back 96 hours, ahead 96 hours).Evelio Garnett MR#: [id number] * Rm: [id number]: 5' 2" Wt: 135 lb Co de: Prior Iso:Diagnosis:Allergies: No Known Allergies -------- Current as of: 02/19/19 1622 GI=Given OP=Override p ull for Anesthesia ---------vancomycin (VANCOCIN) 1,250 mg in 0.9% sodium chloride 250 mL IVPB #[id number] Admin Amount: 1,250 mg Ordered Dose: 1,250 mg Route: IntraVENous Freq: EVERY 12 HOURS Start Date: 11/24/18 Rate: 125 mL/hr Duration: 120 Minutes No administ ration times (back 96 hours, ahead 96 hours). ------potassium chloride (KLOR-CON) packet for solution 20 mEq #[id number] Admin Amount: 1 Packet (1 x 20 mEq Packet) Ordered Dose: 20 mEq Ro shoalwater: Oral Freq: 2 TIMES DAILY WITH MEALS Start Date: 11/25/18 No administration times (back 96 hours, e ad 96 hours). ------piperacillin-tazobactam (ZOSYN) 3.375 g in 0.9% sodium chloride (MBP*#[id number] Admin Amount: 3.375 g Ordered Dose: 3.375 g Route: IntraVENous Freq: NOW Start Date: 12/12/18 Rate: 200 mL/hr Duration: 30 Minutes No administrati on times (back 96 hours, ahead 96 hours). ------albuterol-ipratropium (DUO-NEB) 2.5 MG-0.5 MG/3 ML #[id number] Admin Amount: 3 mL Ordered Dose: 3 mL Route: Nebulization Freq: NOW Start Date: 12/12/18 No administration times (back 96 hours, ahead 96 hours). ------methylPREDNISolone (PF) (Solu-MEDROL) injection 125 mg #[id number] Admin Amount: 2 mL = 125 mg of 125 mg/2 mL Ordered Dose: 125 mg Route: Int raVENous Freq: NOW Start Date: 12/12/18 No administration times (back 96 hours, ahe ad 96 hours). ------albuterol-ipratropium (DUO-NEB) 2.5 MG-0.5 MG/3 ML #[id number] Admin Amount: 3 mL Ordered Dose: 3 mL Route: Nebulization Freq: NOW Start Date: 12/12/18 No administration times (back 96 hours, ahead 96 hours). ------albuterol-ipratropium (DUO-NEB) 2.5 MG-0.5 MG/3 ML #[id number] Admin Amount: 3 mL Ordered Dose: 3 mL Route: Nebulization Freq: NOW Start Date: 12/12/18 No administration times (back 96 hours, ahead 96 hours).Ivelisse Carlin MR#: [id number] * Rm: [id number]: 5' 2" Wt: 135 lb Code: Prior Iso:Diagnosis:Allergies: No Known Allergies -------- Current as of: 02/19/19 1622 GI=Given OP=Override p ull for Anesthesia --------- Followed by Linked Group (Order count: 2)sodium chloride 0. 9 % bolus infusion 1,000 mL #[id number] Admin Amount: 1,000 mL Ordered Dose: 1,000 [...] chloride 0.9 % bolus infusion 593 mL #[id number] Admin Amount: 593 mL Orde red Dose: 593 mL Route: IntraVENous Freq: ONCE Start Date: 12/12/18 No a dministration times (back 96 hours, ahead 96 hours). ------iopamidol (ISOVUE-370) 76 % injection 125 mL #[id number] Admin Amount: 125 mL Ordered Dose: 125 mL Route: IntraVENous Freq: RAD ONCE Start Date: 12/17/18 No administration times (back 96 hours, ahead 96 hours). ------lidocaine (XYLOCAINE) 20 mg/mL (2 %) injection 100 mg #[id number] Admin Amount: 5 mL = 100 mg of 2,000 mg/100 mL Ordered Dose: 5 mL Route: IntraDERMal Freq: ONCE Start Date: 12/19/18 No administration times (b ack 96 hours, ahead 96 hours). ------oxyCODONE-acetaminophen (PERCOCET) 5-325 mg per tablet 1 Tab #[id number] Admin Amount: 1 Tab Ordered Dose: 1 Tab Route: Oral Freq: EVERY 8 HOURS NEEDED Start Date: 12/19/18 No administration times (back 96 hours, ahead 96 hours). ------furosemide (LASIX) injection 20 mg #[id number] Admin Amount: 2 mL = 20 mg of 10 mg/mL Ordered Dose: 20 mg Ro shoalwater: IntraVENous Freq: ONCE Start Date: 12/26/18 No administration times (back 96 hours, ahead 96 hours). ------furosemide (LASIX) injection 20 mg #[id number] Admin Amount: 2 mL = 20 mg of 10 mg/mL Ordered Dose: 20 mg Route: Int raVENous Freq: ONCE Start Date: 12/29/18 No administration times (back 96 hours, ahe ad 96 hours).Evelio Carlin MR#: [id number] * Rm: [id number]: 5' 2" Wt: 135 lb Code: Prior Iso:Diagnosis:Allergies: No Known Allergies -------- Current as of: 02/19/19 1622 GI=Given OP=Override p ull for Anesthesia ---------albuterol-ipratropium (DUO-NEB) 2.5 MG-0.5 MG/3 ML #[id number] Admin Amount: 3 mL Ordered Dose: 3 mL Route: Nebulization Freq: NOW Start Date: 01/10/19 No administration times (back 96 hours, ahead 96 hours). ------methylPREDNISolone (PF) (Solu-MEDROL) injection 125 mg #[id number] Admin Amount: 2 mL = 125 mg of 125 mg/2 mL Ordered Dose: 125 mg Route: Int raVENous Freq: NOW Start Date: 01/10/19 No administration times (back 96 hours, [facility] ad 96 hours). ------albuterol-ipratropium (DUO-NEB) 2.5 MG-0.5 MG/3 ML #[id number] Admin Amount: 3 mL Ordered Dose: 3 mL Route: Nebulization Freq: NOW Start Date: 01/10/19 No administration times (back 96 hours, ahead 96 hours). ------acetaminophen (TYLENOL) tablet 650 mg #[id number] Admin Amount: 2 Tab (2 x 325 mg Tab) Ordered Dose: 650 mg Route: Per G Tub e Freq: NOW Start Date: 01/10/19 No administration times (back 96 hours, e ad 96 hours). ------piperacillin-tazobactam (ZOSYN) injection 3.375 g #[id number] Admin Amount: 3.375 g Ordered Dose: 3.375 g Route: IntraVENous Freq: NOW Start Date: 01/10/19 No administration times (back 96 hours, ahead 96 hours). ------vancomycin (VANCOCIN) 1,000 mg in 0.9% sodium chloride 250 mL IVPB #[id number] Admin Amount: 1,000 mg Ordered Dose: 1,000 mg Route: IntraVENous Freq: ONCE Start Date: 01/10/19 Rate: 125 mL/hr Duration: 120 Minutes No administ ration times (back 96 hours, ahead 96 hours). ------ Followed by Linked Group (Order count: 2)sodium chloride 0. 9 % bolus infusion 1,000 mL #[id number] Admin Amount: 1,000 mL Ordered Dose: 1,000 mL Route: IntraVENous Freq: ONCE Start Date: 01/10/19 No administration t imes (back 96 hours, ahead 96 hours).Evelio Carlin MR#: [id number] * Rm: KAREL 30-30Ht: 5' 2" Wt: [...] chloride 0.9 % bolus infusion 551 mL #[id number] Admin Amount: 551 mL Ordered Dose: 551 mL Route: IntraVENous Freq: ONCE Start Date: 01/10/19 No administration t imes (back 96 hours, ahead 96 hours). ------0.9% sodium chloride (MBP/ADV) infusion #[id number] Ordered Dose: Route: Freq: Start Date: No administration times (back 96 hours, ahead 96 hours). ------influenza vaccine 2018- (65 yrs+)(PF) (FLUZONE HIGH-DOSE) inject io*#[id number] Admin Amount: 0.5 mL Ordered Dose: 0.5 mL Route: IntraMUSCular Freq: PRIOR TO DISCHARGE Start Date: 01/10/19 No administration times (back 96 hours, ahead 96 hours). ------piperacillin-tazobactam (ZOSYN) 3.375 g in 0.9% sodium chloride (MBP*#[id number] Admin Amount: 3.375 g Ordered Dose: 3.375 g Route: IntraVENous Freq: EVERY 8 HOURS Start Date: 01/10/19 Rate: 25 mL/hr Duration: 240 Minutes No administrat ion times (back 96 hours, ahead 96 hours). ------potassium, sodium phosphates (NEUTRA-PHOS) packet 1 Packet #[id number] Admin Amount: 1 Packet Ordered Dose: 1 Packet Route: Per G Tube Freq: 4 TIMES DAILY Start Date: 01/12/19 No administration times (back 96 hours, ahead 96 hours). ------iopamidol (ISOVUE 300) 61 % contrast injection 100 mL #[id number] Admin Amount: 100 mL Ordered Dose: 100 mL Route: IntraVENous Freq: RAD ONCE Start Date: 01/15/19 No administration times (back 96 hours, ahead 96 hours). ------sodium phosphate 15 mmol in 0.9% sodium chlorid e 250 mL infusion #[id number] Ordered Dose: Route: IntraVENous Freq: ONCE Start Date: 01/20/19 Rate: 63.8 mL/hr Duration: 4 Hours No administration patria es (back 96 hours, ahead 96 hours).Evelio Carlin MR#: [id number] * Rm: ER 30-30Ht: 5' 2" Wt: 135 lb Code: Prior Iso:Diagnosis:Allergies: No Known Allergies -------- Current as of: 02/19/19 1622 GI=Given OP=Override p ull for Anesthesia ---------acetaZOLAMIDE SR (DIAMOX) capsule 500 mg #[id number] Admin Amount: 1 Cap (1 x 500 mg Cap) Ordered Dose: 500 mg Route: Ora l Freq: ONCE Start Date: 01/23/19 No administration times (back 96 hours, e ad 96 hours). ------albuterol (PROVENTIL VENTOLIN) nebulizer solution 2.5 mg #[id number] Admin Amount: 3 mL = 2.5 mg of 2.5 mg/3 mL Ordered Dose: 2.5 mg Route: Neb ulization Freq: NOW Start Date: 02/08/19 No administration times (back 96 hours, ahe ad 96 hours). ------albuterol (PROVENTIL VENTOLIN) nebulizer solution 2.5 mg #[id number] Admin Amount: 3 mL = 2.5 mg of 2.5 mg/3 mL Ordered Dose: 2.5 mg Route: Neb ulization Freq: NOW Start Date: 02/08/19 No administration times (back 96 hours, [facility] ad 96 hours). ------ Followed by [facility] (Order count: 2)sodium chloride 0. 9 % bolus infusion 1,000 mL #[id number] Admin Amount: 1,000 mL Ordered Dose: 1,000 [...] chloride 0.9 % bolus infusion 701 mL #[id number] Admin Amount: 701 mL [place] red Dose: 701 mL Route: IntraVENous Freq: ONCE Start Date: 02/08/19 No administration times (back 96 hours, ahead 96 hours). ------cefepime (MAXIPIME) 2 g in 0.9% sodium chloride (MBP/ADV) 100 mL MBP #[id number] Admin Amount: 2 g Ordered Dose: 2 g Route: IntraVENous Freq: NOW Start Date: 02/08/19 Rate: 200 mL/hr Duration: 30 Minutes No administration times (back 96 hours, ahead 96 hours). ------vancomycin (VANCOCIN) 1,000 mg in 0.9% sodium chloride 250 mL IVPB #[id number] Admin Amount: 1,000 mg Ordered Dose: 1,000 mg Route: IntraVENous Freq: ONCE Start Date: 02/08/19 Rate: 125 mL/hr Duration: 120 Minutes No adminis tration times (back 96 hours, ahead 96 hours).Evelio Carlin MR#: [id number] * Rm: [id number]: 5' 2" Wt: 135 lb Code: Prior Iso:Diagnosis:Allergies: No Known Allergies -------- Current as of: 02/19/19 1622 GI=Given OP=Override p ull for Anesthesia ---------ALPRAZolam (XANAX) tablet 0.25 mg #[id number] Admin Amount: 1 Tab (1 x 0.25 mg Tab) Ordered Dose: 0.25 mg Route: Per G Tube Freq: 4 TIMES DAILY NEEDED Start Date: 02/08/19 No administration times (back 96 hours, ahe ad 96 hours). ------cefepime (MAXIPIME) 2 g in 0.9% sodium chloride (MBP/ADV) 100 mL MBP #[id number] Admin Amount: 2 g Ordered Dose: 2 g Route: IntraVENous Freq: EVERY 8 HOUR S Start Date: 02/09/19 Rate: 200 mL/hr Duration: 30 Minutes No administration times (back 96 hours, ahead 96 hours). ------ALPRAZolam (XANAX) tablet 0.25 mg #[id number] Admin Amount: 1 Tab (1 x 0.25 mg Tab) Ordered Dose: 0.25 mg Route: Per G Tub e Freq: 4 TIMES DAILY NEEDED Start Date: 02/14/19 Administration times (back 96 hours, ahead 96 hours): 02/15/19: 2151GI -----propofol (DIPRIVAN) 10 mg/mL injection #[id number] Ordered Dose: Route: Freq: Start Date: 02/16/19 Administration times (back 96 hours, ahead 96 hours): 02/16/19: 1259OP -----midazolam (PF) (VERSED) 1 mg/mL injection #[id number] Ordered Dose: Route: Freq: Start Date: 9 Administration times (back 96 hours, ahead 96 hours): 02/16/19: 1251 ---albuterol (PROVENTIL VENTOLIN) 2.5 mg /3 mL (0.083 %) nebuliz karel dixon*#[id number] Ordered Dose: Route: Freq: Start Date: 04/18/18 Administration times (back 96 hours, ahead 96 hours): 02/16/19: 1411OP -----albuterol (PROVENTIL VENTOLIN) nebulizer solution 2.5 mg #[id number] Admin Amount: 3 mL = 2.5 mg of 2.5 mg/3 mL Ordered Dose: 2.5 mg Route: Inhalation Freq: NEEDED Start Date: 02/16/19 Administration times (back 96 h ours, ahead 96 hours): 02/16/19: PriscillaSUZANAlexEvelio munoz MR#: [id number] * Rm: Abbey [id number]: 5' 2" Wt: 135 lb Code: Prior Iso:Diagnosis:Allergies: No Known Allergies -------- Current as of: 02/19/19 1622 GI=Given OP=Override p ull for Anesthesia ---------ePHEDrine (MISTOLE) 50 mg/mL injection #[id number] Ordered Dose: Route: Freq: Start Date: 02/16/19 Administration times (back 96 hours, ahead 96 hours): 02/16/19: 1500 ---propofol (DIPRIVAN) 10 mg/mL injection #[id number] Ordered Dose: Route: Freq: Start Date: 02/17/19 Administration times (back 96 hours, ahead 96 hours): 02/17/19: 1115OP -----fentaNYL citrate (PF) 50 mcg/mL injection #[id number] Ordered Dose: Route: Freq: Start Date: Administration times (back 96 hours, ahead 96 hours): 02/17/19: 1114OP -----midazolam (PF) (VERSED) 1 mg/mL injection #[id number] Ordered Dose: Route: Freq: Start Date: 9 [...] With:Jessie Whitt DODetails:Comments:Contact Info:[address] [facility] [phone] With:Darryl Harrison MDDetails:Schedule an appointme nt as soon as possible for a visitComments:Contact Info:[address] [facility] [phone] Name Value Range Interpretation Code Description Data Harriett rce(s) Supporting Document(s ) ID Date Data Source [id number] 02/19/2019 04:21:22 PM [facility] Transport arrived & report given to EMS at bedside, pt remains alert/altered atbaseline, obeys commands without furth er distress, dc'd return to nursing homewith papers in hand. Name Value Range Interpretation Code Description Data [facility] rce(s) Supporting Document(s ) ID Date Data Source [id number] 02/19/2019 03:51:58 PM [facility] aware pt to be givenliquids only through J-tube, no crushed meds. A waiting ambulance no furtherdistress noted. Name Value Range Interpretation Code Description Data [facility] rce(s) Supporting Document(s ) ID Date Data Source [id number] 02/19/2019 03:16:48 PM [facility] J-tube flushed and patent s/p GI consult , clean dressing in place and abdomennondistended, pt cleared for dc, community coordinator aware arranging transport Name Value Range Interpretation Code Description Data [facility] rce(s) Supporting Document(s ) ID Date Data Source [id number] 02/19/2019 03:16:11 PM [facility] Sent in because clogged jejunostomy tube vss afebabd soft non tender nl b sG-site clean and dryAttempted water flush faile d. Endo cleaning brush gently advanced, mildresistance. Walton removed, water fl ushed, 50cc egress into bowel,, processrepeated twice.recFlush w/ 50cc w ater after each feedDo not crush and instill medsAvoid "unnecessary" medsThank you Name Value Range Interpretation Code Description Data [facility] rce(s) Supporting Document(s ) ID Date Data Source [id number] 02/19/2019 02:42:10 PM [facility] GI in at bedside Name Value Range Interpretation Code Description Data [facility] rce(s) Supporting Document(s ) ID Date Data Source [id number] 02/19/2019 01:32:08 PM [facility] Pt sent from [facility] for clogged J-t ube Name Value Range Interpretation Code Description Data [facility] rce(s) Supporting Document(s ) ID Date Data Source [id number] 02/19/2019 01:30:56 PM [facility] Report received from Amanda RN, pt rest ing awaiting GI consult & furtherprovider reeval, family at bedside Name Value Range Interpretation Code Description Data Harriett rce(s) Supporting Document(s ) ID Date Data Source [id number] 02/18/2019 11:40:42 AM [facility] Patient discharged [facility] [place] [facility] to [place] [facility]. Clinically andvitally stable at the time of discharge. Name Value Range Interpretation Code Description Data Harriett rce(s) Supporting Document(s ) ID Date Data Source [id number] 02/18/2019 09:39:17 AM [facility] ID Progress Note02/18/2019Subjective:S/p J- tube placement yesterdayAfebrile, no event overnightPatient with MR cathy bradshaw,unable to provide history.Objective:Vitals:Patient Vitals for the past 24 hrs: BP Temp Pulse Resp RyS95202/18/19 0710 119/75 97.5 F (36.4 C) 83 [...] 25 g 50 mL IntraVENous PRNLabs:Recent Labs 90340 02/17/1904WBC 10.1 11.1* 8.1HGB 12.5* 12.7* 12.6*PLT [...] Supporting Document(s ) ID Date Data Source [id number] 02/18/2019 09:36:26 AM EST [facility] Care Management InterventionsPCP Verifie d by CM: (Dr. Hills)Palliative Care Criteria Met (RRAT>21 & CHF Dx)?: NoMode of Trans port at Discharge: BLSTransition of Care Consult (CM Consult): Discharge Planning MyChart Signup: NoDischarge Durable Medical Equipment: NoPhysical Therapy Consult: N oOccupational Therapy Consult: NoSpeech Therapy Consult: NoCurrent Support Netwo rk: Nursing Facility(LTR at [facility])Confirm Follow Up Transport: Othe r (see comment)(ambulance)Plan discussed with Pt/Family/Caregiver: YesFreedom of Choic e Offered: YesVeteran Resource Information Provided?: RefusedDischarge LocationDisc harge Placement: Home(LTR at [facility])Pt discharging back to [facility] today [facility] at 11:30 am. RN kenna. Spoke with pt's HCP Joyce who is aware and agreeable. Spoke with Macho Flores who reports pt is accepted to ret urn and facility is awareof transport time. Feedings updated on YUAN by RNCM and sent to [facility]. Name Value Range Interpretation Code Description Data Harriett rce(s) Supporting Document(s ) ID Date Data Source [id number] 02/18/2019 09:13:31 AM [facility] The YUAN completed. Name Value Range Interpretation Code Description Data Harriett rce(s) Supporting Document(s ) ID Date Data Source [id number] 02/18/2019 08:59:49 AM [facility] Pt is not verbal. Tolerating feeds at 50 ml/hr.Exam: VSSIn NADAbd: soft, NTND, PEG site- no tenderness nor indurationA/P s/ p conversion placement J-tube via PEG- doing well on feeds- continue feeds as tolerat ed- re consult as neededThank You Name Value Range Interpretation Code Description Data [facility] rce(s) Supporting Document(s ) ID Date Data Source [id number] 02/18/2019 08:43:23 AM [facility] RENAL Progress NotePatient: Evelio Shukla hbein Sex: [...] 10.2* 9.5Specia l Requests:Date Value Ref Range Uurdap8302/08/2019 NO SPECIAL REQUESTS F inalCulture result:Date Value Ref Range Xowkcm0102/08/2019 NO GROWTH 5 DAYS Bessy lXR Results [...] Supporting Document(s ) ID Date Data Source [id number] 02/18/2019 07:23:10 AM EST [facility] Discharge SummaryPatient: Evelio barlow Sex: male DOA: 02/08/2019Date of : 1950 Age: 68 y.o. LOS: 10 daysAdmit Date: 02/08/2019Discharge Date: 9Discharge Diagnoses:Problem List as of 02/18/2019 Date Reviewed: 02/18/2019 Codes Class Noted - Resolved Pressure injury of right heel, stage 2 (HCC) ICD-10-CM: L89.612ICD-9-CM: 707.07, 707.22 02/09/2019 - Present Leg wound, right, initial encoun ter ICD-10-CM: S81.117MARY-1-FB: 894.0 02/09/2019 - Present SOB (shortness of [...] 250 mg/5 mL (5 mL) soln oral [id number] mg by Per G Tube route every [...] 32MG/ML soln solution Take 20.3 mL by pa ut every four(4) hours as needed for [...] feeding at 40ml/hr, pulmocare, nutrition consult [facility]: Follow up with Ginger Lopez MDNovember 2018 Name Value Range Interpretation Code Description Data [facility] rce(s) Supporting Document(s ) ID Date Data Source [id number] 02/18/2019 07:20:56 AM [facility] Bedside and Verbal shift change report g iven to Carmen Crabtree, RN (oncoming nurse)by Yuki Alonzo RN(offgoing nurse). Re port given with SBAR, Kardex, Intake/Output, MAR and RecentResults. Name Value Range Interpretation Code Description [facility] Document(s ) ID Date Data Source [id number] 02/18/2019 07:13:01 AM [facility] Progress NotePatient: Evelio Carlin Sex: male [...] 10.0 10.2* 9.5Special Requests:Date Value Ref Range Lpayyz9702/08/2019 NO SPECIAL RE QUESTS FinalCulture result:Date Value Ref Range Piwhny4202/08/2019 NO GROWTH 5 DAYS FinalXR Results (most [...] Name Value Range Interpretation Code Description Data [facility] rc(s) Supporting Document(s ) ID Date Data Source [id number] 02/18/2019 04:58:40 AM [facility] Problem: Falls - Risk ofGoal: *Absence [...] Supporting Document(s ) ID Date Data Source [id number] 02/18/2019 05:50:26 AM [facility] Name Value Range Interpretation Description Data Sup porting Code Source(s) Document(s ) Leukocytes 10.1 4.8-10.6 [facility] - [#/volume] in K/uL Good Blood by [facility] Automated count [facility] Erythrocytes 3.91 4.70-6.0 Below low normal [facility] - [#/volume] in M/uL 0 Good Blood by [facility] Hemoglobin 12.5 14.0-18. Below low normal [facility] - [Mass/volume] in g/dL 0 Good Blood [facility] Hematocrit 38.6 % 42.0-52. Below low normal [facility] - [Volume 0 Good Fraction] of [facility] Blood by Hospital Automated count Erythrocyte mean 98.7 FL 81.0-94. Above high normal [facility] - corpuscular 0 Good volume [Entitic [facility]rianism volume] by Hospital Automated count Erythrocyte mean 32.0 PG 27.0-35. [facility] - corpuscular 0 Good hemoglobin [facility] [Entitic mass] Hospital by Automated count Erythrocyte mean 32.4 30.7-37. [facility] - corpuscular g/dL 3 Good hemoglobin [facility] concentration Hospital [Mass/volume] by Automated count Erythrocyte 16.1 % 11.5-14. Above high normal [facility] - distribution 0 Good width [Ratio] by [facility] Automated count Hospital Platelets 279 K/uL 130-400 [facility] - [#/volume] in Good Blood by [facility] Automated count Hospital Platelet mean 9.7 FL 9.2-11.8 [facility] - volume [Entitic Good volume] in Blood [facility] by Automated Hospital count ID Date Data Source [id number] 02/18/2019 05:32:18 AM EST [facility] Name Value Range Interpretation Description Data Sup porting Code Source(s) Document(s ) Magnesium 1.8 mg/dL 1.6-2.6 [facility] - Good [Mass/volume] [facility]rianism in Serum or Hospital Plasma ID Date Data Source [id number] 02/18/2019 05:32:18 AM EST [facility] Name Value Range Interpretation Description Data Sup porting Code Source(s) Document(s ) Sodium 134 136-145 Below low normal [facility] - Good [Moles/volume] mmol/L [facility] in Serum or Hospital Plasma Potassium 4.2 3.5-5.1 [facility] - Good [Moles/volume] mmol/L [facility] in Serum or Hospital Plasma Chloride 96 98-107 Below low normal [facility] - Good [Moles/volume] mmol/L [facility] in Serum or Hospital Plasma Carbon 34 21-32 Above high normal [facility] - Good dioxide, total mmol/L [facility] [Moles/volume] Hospital in Serum or Plasma Anion gap in 8 mmol/L 10-20 Below low normal [facility] - Go od Serum or [facility] Plasma Hospital Glucose 137 74-106 Above high normal [facility] - Good [Mass/volume] mg/dL [facility] in Serum or Hospital Plasma Urea nitrogen 10 mg/dL 7-18 [facility] - Good [Mass/volume] [facility] in Serum or Hospital Plasma Creatinine 0.32 0.70-1.3 Below low normal [facility] - Good [Mass/volume] mg/dL 0 [facility] in Serum or Hospital Plasma Glomerular >60 [facility] - Good filtration [facility] rate/1.73 sq M Hospital predicted among blacks [Volume Rate/Area] in Serum or Plasma by Creatinine-bas ed formula (MDRD) Glomerular >60 [facility] - Good filtration [facility] rate/1.73 sq M Hospital predicted among non-blacks [Volume Rate/Area] in Serum or Plasma by Creatinine-bas ed formula (MDRD) Calcium 10.0 8.5-10.1 [facility] - Good [Mass/volume] mg/dL [facility] in Serum or Hospital Plasma ID Date Data Source [id number] 02/17/2019 10:13:47 PM EST [facility] Name Value Range Interpretation Description Data Sup porting Code Source(s) Document(s ) Glucose 93 MG/DL 65-110 [facility] - Good [Mass/volume] [facility] in Blood by Hospital Automated test strip ID Date Data Source [id number] 02/17/2019 08:40:22 PM EST [facility] Progress NotePatient: Evelio Carlin Sex: male [...] 9.5 9.3Special Requests:Date Value Ref R raysa Artrdw6002/08/2019 NO SPECIAL REQUESTS FinalCulture result:Date Value Ref Range Ykhcwt7202/08/2019 NO GROWTH 5 DAYS FinalXR Results (most [...] Supporting Document(s ) ID Date Data Source [id number] 02/17/2019 07:31:54 PM [facility] Bedside shift change report given to TERESA GARCÍA RN (oncoming nurse) by NASRIN PITTS (offgoing nurse). Report included the following information SBAR,Kardex, ED Summary, Intake/Output, MAR, Recent Resu lts, Med Rec Status andCardiac Rhythm NSR. Name Value Range Interpretation Code Description Data Harriett rce(s) Supporting Document(s ) ID Date Data Source [id number] 02/17/2019 04:58:03 PM EST [facility] Name Value Range Interpretation Description Data Sup porting Code Source(s) Document(s ) Glucose 111 MG/DL 65-110 Above high normal [facility] [Mass/volume] [facility]ism in Blood by Hospital Automated test strip ID Date Data Source [id number] 02/17/2019 04:29:49 PM EST [facility] ID Progress Note02/17/2019Subjective:S/p J- tube placement todayPatient with MR non verbal,unable to provide history.Afebril eObjective:Vitals:Patient Vitals for the past 24 hrs: BP Temp Pulse Resp HrN48302/17/19 1551 (!) 127/99 97.8 F (36.6 C) [...] Supporting Document(s ) ID Date Data Source [id number] 02/17/2019 02:43:29 PM EST [facility] Problem: Nutrition DeficitGoal: *Optimiz e nutritional [...] Supporting Document(s ) ID Date Data Source [id number] 02/17/2019 02:42:51 PM EST [facility] NUTRITIONFollow Up NoteSubjective: Pt nelson d [...] Supporting Document(s ) ID Date Data Source [id number] 02/17/2019 01:11:54 PM EST [facility] Name Value Range Interpretation Description Data Sup porting Code Source(s) Document(s ) Glucose 85 MG/DL 65-110 [facility] [Mass/volume] [facility] in Blood by Hospital Automated test strip ID Date Data Source [id number] 02/17/2019 12:35:56 PM EST [facility] TRANSFER - OUT REPORT:Verbal report give n to Vivek PITTS(name) on [facility] being transferredto [address] [place] [address](unit) for ro utine progression of careReport consisted [...] Supporting Document(s ) ID Date Data Source [id number] 02/17/2019 12:33:18 PM EST [facility] TRANSFER - IN REPORT:Verbal report recei nathaly from rylie PITTS(name) on [facility] beingreceived from [facility](u nit) for routine progression of careReport consisted of patient's Situation, Backgr ound, Assessment andRecommendations(SBAR).Information fro m the following report(s) SBAR, OR Summary, Procedure Summary,MAR and Med Rec Status was reviewed with the receiving nurse.Opportunity for questions and clar ification was provided.Assessment completed upon patient's arrival to unit and care assumed. Name Value Range Interpretation Code Description Data [facility] rce(s) Supporting Document(s ) ID Date Data Source [id number] 02/17/2019 11:51:49 AM [facility] 1140 Pt received via bed from endoscopy, anesthesia in attendance. Monitor SR.Abdomen soft with PEG and binder in place, dress ing dry and intact. O2 at [address]. Name Value Range Interpretation Code Description Data [facility] rce(s) Supporting Document(s ) ID Date Data Source [id number] 02/17/2019 11:48:51 AM [facility] PULMONARY/ CCM- Consult NotePatient: Ivelisse Carlin [...] 250 mg/5 mL (5 mL) soln oral okdevonb715 mg by Per G Tube route every [...] mg daily. Via G tube 12/30/18 Yes iMli Hills DOlamoTRIgi ne (LAMICTAL) 25 mg tablet [...] 02/17/19 06 9 02/17/19699 - 02/18/19 0659Shift [id number] [id number] 24 Hour Total 0700-1 859 3759-4089 24 Hour TotalINTAKEI.V.(mL/kg/hr) 500(0.7) 500( 0.3) 100 [...] images were obtained and reviewed on a [employer] d viewingworkstation and directly supervised. Contrast: A [...] Supporting Document(s ) ID Date Data Source [id number] 02/17/2019 11:32:03 AM EST [facility] BRIEF OPERATIVE NOTEDate of Procedure: 1 04/19/2018Preoperative Diagnosis: PEG complicationPostoperative Diagnosis: PEG complicationProcedure(s):ESOPHAGOGASTROD UODENOSCOPY (EGD)Surgeon(s) and Role: * Darryl Harrison MD - PrimarySurgical A ssistant: noneSurgical Staff:machine precision engraver-1: Ingris Chin, RN; Ysabel Troncoso RNNo case [...] Supporting Document(s ) ID Date Data Source [id number] 02/17/2019 10:24:49 AM [facility] TRANSFER - IN REPORT:[facility] from [facility] for ordered proced ureReport consisted of patient's Situation, Background, Assessment andRecommendation s(SBAR).Information from the following report(s) SBAR and MAR was reviewed with thereceiving nurse.Opportunity for questions and clarification was provided.Assessmen t completed upon patient's arrival to unit and care assumed. Name Value Range Interpretation Code Description Data Harriett rce(s) Supporting Document(s ) ID Date Data Source [id number] 02/17/2019 10:22:47 AM [facility] Relevant ProblemsNo relevant active prob lemsAnesthetic [...] Name Value Range Interpretation Code Description Data [facility] rce(s) Supporting Document(s ) ID Date Data Source [id number] 02/17/2019 09:17:25 AM EST [facility] Yohana had jtube placed through GT [...] Name Value Range Interpretation Code Description Data [facility] rce(s) Supporting Document(s ) ID Date Data Source [id number] 02/17/2019 08:17:43 AM [facility] Name Value Range Interpretation Description Data Sup porting Code Source(s) Document(s ) Glucose 82 MG/DL 65-110 [facility] [Mass/volume] [facility] in Blood by [facility] Automated test strip ID Date Data Source [id number] 02/17/2019 07:36:32 AM [facility] Bedside and Verbal shift change report carol pham to Manpreet Doyle RN (oncomingnurse) by Josh Weiner RN(offgoing nurse). Report given with SBAR, Kardex, Intake/Output, MAR and RecentResults. Name Value Range Interpretation Code Description Data [facility] rce(s) Supporting Document(s ) ID Date Data Source [id number] 02/17/2019 06:10:38 AM [facility] Name Value Range Interpretation Description Data Sup porting Code Source(s) Document(s ) Leukocytes 11.1 4.8-10.6 Above high normal [facility] - [#/volume] in K/uL Good Blood by [facility] Automated count [facility] Erythrocytes 3.98 4.70-6.0 Below low normal [facility] - [#/volume] in M/uL 0 Good Blood by [facility] Automated count Hospital Hemoglobin 12.7 14.0-18. Below low normal [facility] - [Mass/volume] in g/dL 0 Good Blood [facility] Hematocrit 39.9 % 42.0-52. Below low normal [facility] - [Volume 0 Good Fraction] of [facility] Blood by Hospital Automated count Erythrocyte mean 100.3 FL 81.0-94. Above high normal [facility] - corpuscular 0 Good volume [Entitic [facility] volume] by Hospital Automated count Erythrocyte mean 31.9 PG 27.0-35. [facility] - corpuscular 0 Good hemoglobin [facility] [Entitic mass] Hospital by Automated count Erythrocyte mean 31.8 30.7-37. [facility] - corpuscular g/dL 3 Good hemoglobin [facility] concentration Hospital [Mass/volume] by Automated count Erythrocyte 16.1 % 11.5-14. Above high normal [facility] - distribution 0 Good width [Ratio] by [facility] Automated count Hospital Platelets 262 K/uL 130-400 [facility] - [#/volume] in Good Blood by [facility] Automated count [facility] Platelet mean 9.3 FL 9.2-11.8 [facility] - volume [Entitic Good volume] in Blood [facility] by Automated Hospital count ID Date Data Source [id number] 02/17/2019 05:24:17 AM EST [facility] Name Value Range Interpretation Description Data Sup porting Code Source(s) Document(s ) Magnesium 1.7 mg/dL 1.6-2.6 [facility] - Good [Mass/volume] Zoroastrianism in Serum or Hospital Plasma ID Date Data Source [id number] 02/17/2019 05:24:17 AM EST [facility] Name Value Range Interpretation Description Data Sup porting Code Source(s) Document(s ) Sodium 133 136-145 Below low normal [facility] - [facility] [Moles/volume] mmol/L [facility]ism in Serum or Hospital Plasma Potassium 4.0 3.5-5.1 [facility] - [facility] [Moles/volume] mmol/L [facility]rianism in Serum or Hospital Plasma Chloride 97 98-107 Below low normal [facility] - [facility] [Moles/volume] mmol/L [facility]astrianism in Serum or Hospital Plasma Carbon 34 21-32 Above high normal [facility] - Good dioxide, total mmol/L Z[facility]astrianism [Moles/volume] Hospital in Serum or Plasma Anion gap in 6 mmol/L 10-20 Below low normal [facility] - Go od Serum or [facility]astrianism Plasma Hospital Glucose 70 mg/dL 74-106 Below low normal [facility] - [facility] [Mass/volume] Zoroastrianism in Serum or Hospital Plasma Urea nitrogen 7 mg/dL 7-18 [facility] - [facility] [Mass/volume] Zoroastrianism in Serum or Hospital Plasma Creatinine 0.28 0.70-1.3 Below low normal [facility] - [facility] [Mass/volume] mg/dL 0 Zoroastrianism in Serum or Hospital Plasma Glomerular >60 [facility] - Good filtration Zoroastrianism rate/1.73 sq M Hospital predicted among blacks [Volume Rate/Area] in Serum or Plasma by Creatinine-bas ed formula (MDRD) Glomerular >60 [facility] - Good filtration Zoroastrianism rate/1.73 sq M Hospital predicted among non-blacks [Volume Rate/Area] in Serum or Plasma by Creatinine-bas ed formula (MDRD) Calcium 10.2 8.5-10.1 Above high normal [facility] - Good [Mass/volume] mg/dL Zoroastrianism in Serum or Hospital Plasma ID Date Data Source [id number] 02/16/2019 10:52:44 PM EST [facility] Name Value Range Interpretation Description Data Sup porting Code Source(s) Document(s ) Glucose 103 MG/DL 65-110 [facility] - [facility] [Mass/volume] Zoroastrianism in Blood by Hospital Automated test strip ID Date Data Source [id number] 02/16/2019 07:59:36 PM EST [facility] Progress NotePatient: Evelio Carlin Sex: male [...] 9.3 9.4Special Requests:Da te Value Ref Range Djwltq7902/08/2019 NO SPECIAL REQUESTS FinalCulture result:D ate Value Ref Range [id number]/08/2019 NO GROWTH 5 DAYS FinalXR Results (most [...] Name Value Range Interpretation Code Description Data [facility] rce(s) Supporting Document(s ) ID Date Data Source [id number] 02/16/2019 07:35:09 PM [facility] Received patient from Recovery at 4:45pm after GT placement.Patient GT tube hasresistant while flushing. Informed to darryl Santillan (Gastro).As PerDr.Will look AM. Name Value Range Interpretation Code Description Data [facility] rce(s) Supporting Document(s ) ID Date Data Source [id number] 02/16/2019 07:34:21 PM [facility] Bedside shift change report given to VIANNEY BLAND RN (oncoming nurse) by NASRIN PITTS (offgoing nurse). Report included the fo llowing information SBAR,Kardex, ED Summary, Intake/Output, MAR, Recent Results, Med Rec Status andCardiac Rhythm SR. Name Value Range Interpretation Code Description [facility](s ) ID Date Data Source [id number] 02/16/2019 06:07:32 PM [facility] TRANSFER - IN REPORT:Verbal report recei nathaly from lea PITTS(name) on Evelio Carlin being receivedfrom RECOVERY(unit) for ro utine progression [...] Supporting Document(s ) ID Date Data Source [id number] 02/16/2019 05:57:19 PM [facility] Name Value Range Interpretation Description Data Sup porting Code Source(s) Document(s ) Glucose 91 MG/DL 65-110 [facility] [Mass/volume] Zoroastrianism in Blood by [facility] Automated test strip ID Date Data Source [id number] 02/16/2019 04:05:58 PM [facility] As per policy all transporters have rece [...] Supporting Document(s ) ID Date Data Source [id number] 02/16/2019 02:27:21 PM [facility] GIPatient s/p EGD with placement of a th rzuky-wps-DYY jejunal feeding tube. Seeprocedure report for details.OK to us e new tube for meds/free water but would not administer feeds until GIre-evaluation t omorrow. Name Value Range Interpretation Code Description Data Harriett rce(s) Supporting Document(s ) ID Date Data Source [id number] 02/16/2019 02:24:15 PM [facility] PEG ENDOSCOPYNAME: Evelio Carlin : 1950MRN: [id number] Type: EGD, PEG and through the PEG [...] and brought out the mouth. A 24 burmese tract ionremovable pull type PEG tube was passed over the wire and brought out theabdomin al wall without difficulty. The endoscope was then reinserted via themouth and advance d into the stomach, confirming proper placement of the PEGtube. The PEG tube w as then cut about 15 cm from the skin and a 12 qxehjaybkdeke-sep-RZE jejunal feeding tube was advanced through the PEG and into thestomach. A [employer] on clip was then used [...] Supporting Document(s ) ID Date Data Source [id number] 02/16/2019 01:32:34 PM EST [facility] Progress NoteMIDSTATE [facility] ,[facility].Krystian Monae MD., F.C.C.P.Stella Hamilton MD., F.C.C.P. 9W 1 [facility] [address] [place] [id number] [place] [address] [phone]: Evelio Carlin Sex: male DOA: [...] 250 mg/5 mL (5 mL) soln oral dieyqdbs229 mg by Per G Tube route every [...] 250 mg/5 mL (5 m L) oral xhyybaxx368 mg, 750 mg, Oral, Q12H, Chay Palma [...] Range Osmolality,urine 408 300 - 1,000 MOSM/kg [id number], UR, RANDOM Collection Time: 02/15/19 5:30 PMResult [...] Component Value Units Date/Patria e CULTURE, BLOOD [[id number]] Collected: 02/08/19 1719 Order Status: Completed S pecimen: Blood Updated: 02/13/19620 Special Requests: NO SPECIAL REQUESTS C ulture result: NO GROWTH 5 DAYS CULTURE, BLOOD [[id number]] Collected: 02/08/19 1 700 Order Status: Completed Specimen: Blood Updated: 02/13/19620 Special Request s: NO SPECIAL REQUESTS Culture result: NO GROWTH 5 DAYS LEGIONELLA PNEUMOPHILA AG, URINE [[id number]] Collected: 02/08/19 2330 Order Status: Completed Specimen: [...] MEMBRANE ASSAY CULTURE, RESPIRATORY/SPUTUM/BRONCH W GRAM STAIN [[id number]] Collected:02/08/19 1830 Order Status: Canceled Specimen: SputumImages:[email or web address] [...] CARLIN THIS IS AFINAL REPORT FROM IMAGING RESIDENTIAL SALES REPRESENTATIVE DATE OF SERVICE: 2019-01-21 22:23:43 IMAGES: 1EXAM: [...] Verde Please call Imaging On [phone] ([phone]) with questions. This report was electronically signedby: [...] venous spectral Doppler studies are performed using [place] r Doppler Flowand enhanced Duplex Spectral technique. [...] Supporting Document(s ) ID Date Data Source [id number] 02/16/2019 12:17:39 PM EST [facility] RENAL Progress NotePatient: Evelio Shukla hbein Sex: [...] 9.3 9.4Special Requests:Da te Value Ref Range Azpngt9302/08/2019 NO SPECIAL REQUESTS FinalCulture result:D ate Value Ref Range Kuwotf4902/08/2019 NO GROWTH 5 DAYS FinalXR Results (most [...] Supporting Document(s ) ID Date Data Source [id number] 02/16/2019 11:47:33 AM EST [facility] Name Value Range Interpretation Description Data Sup porting Code Source(s) Document(s ) Glucose 78 MG/DL 65-110 [facility] [Mass/volume] [facility]astrianism in Blood by Hospital Automated test strip ID Date Data Source [id number] 02/16/2019 11:14:08 AM EST [facility] ID Progress Note02/16/2019Subjective:Pt a waiting J- tube placement otodayPatient with MR non verbal,unable to provide history. AfebrileWbc trending down.No new event overnightObjective:Vitals:Patient Vitals for the past 24 hrs: BP Temp Pulse Resp RdM15502/16/19 0723 110/84 98 F (36.7 C) 66 [...] 25 g 50 mL IntraVENous PRNLabs:Recent Labs 83295 435 503WBC 8.1 8.7 9.6HGB 12.6* 13.4* [...] Name Value Range Interpretation Code Description Data [facility] rce(s) Supporting Document(s ) ID Date Data Source [id number] 02/16/2019 08:50:35 AM [facility] TRANSFER - IN REPORT:Verbal report recei nathaly from Ceferino PITTS on Evelio Carlin being [address] for ordered procedureReport consisted of patient's Situation, Background, Assessment andRec ommendaconcha(SBAR).Information from the following report(s) SBAR and MAR was rev [facility] nurse.Opportunity for questions and clarification was provided .Assessment completed upon patient's arrival to unit and care assumed. Name Value Range Interpretation Code Description Data [facility] Supporting Document(s ) ID Date Data Source [id number] 02/16/2019 07:28:26 AM [facility] Bedside and Verbal shift change report g iven to Manpreet Doyle RN (oncomingnurse) by Josh Weiner RN(offgoing nurs e). Report given with SBAR, Kardex, Intake/Output, MAR and RecentResults. Name Value Range Interpretation Code Description Data [facility] Supporting Document(s ) ID Date Data Source [id number] 02/16/2019 07:22:28 AM [facility] Bedside and Verbal shift change report g iven to Mariaa Doyle RN (oncomingnurse) by Josh Weiner RN(offgoing nurs e). Report given with SBAR, Kardex, Intake/Output, MAR and RecentResults. Name Value Range Interpretation Code Description Data [facility] Supporting Document(s ) ID Date Data Source [id number] 02/16/2019 07:22:35 AM [facility] Name Value Range Interpretation Description Data Sup porting Code Source(s) Document(s ) Glucose 96 MG/DL 65-110 [facility] [Mass/volume] Zoroastrianism in Blood by [facility] Automated test strip ID Date Data Source [id number] 02/16/2019 05:34:44 AM EST [facility] Name Value Range Interpretation Description Data Sup porting Code Source(s) Document(s ) Phosphate 2.9 mg/dL 2.5-4.9 [facility] [Mass/volume] [facility]astrianism in Serum or Hospital Plasma ID Date Data Source [id number] 02/16/2019 05:34:44 AM EST [facility] Name Value Range Interpretation Description Data Sup porting Code Source(s) Document(s ) Sodium 135 136-145 Below low normal [facility] [Moles/volume] mmol/L [facility]ism in Serum or Hospital Plasma Potassium 4.4 3.5-5.1 [facility] [Moles/volume] mmol/L [facility]astrianism in Serum or Hospital Plasma Chloride 97 98-107 Below low normal [facility] [Moles/volume] mmol/L [facility]astrianism in Serum or Hospital Plasma Carbon 37 21-32 Above high normal [facility] - Good dioxide, total mmol/L [facility]ism [Moles/volume] Hospital in Serum or Plasma Anion gap in 5 mmol/L 10-20 Below low normal [facility] - Go od Serum or [facility]ism Plasma Hospital Glucose 90 mg/dL 74-106 [facility] [Mass/volume] Zoroastrianism in Serum or Hospital Plasma Urea nitrogen 11 mg/dL 7-18 [facility] [Mass/volume] Zoroastrianism in Serum or Hospital Plasma Creatinine 0.34 0.70-1.3 Below low normal [facility] - [facility] [Mass/volume] mg/dL 0 [facility]oroastrianism in Serum or Hospital Plasma Glomerular >60 [facility] - Good filtration Zoroastrianism rate/1.73 sq M Hospital predicted among blacks [Volume Rate/Area] in Serum or Plasma by Creatinine-bas ed formula (MDRD) Glomerular >60 [facility] - Good filtration Zoroastrianism rate/1.73 sq M Hospital predicted among non-blacks [Volume Rate/Area] in Serum or Plasma by Creatinine-bas ed formula (MDRD) Calcium 9.5 8.5-10.1 [facility] - [facility] [Mass/volume] mg/dL [facility]astrianism in Serum or Hospital Plasma ID Date Data Source [id number] 02/16/2019 05:34:44 AM EST [facility] Name Value Range Interpretation Description Data Sup porting Code Source(s) Document(s ) Magnesium 2.0 mg/dL 1.6-2.6 [facility] [Mass/volume] [facility]astrianism in Serum or Hospital Plasma ID Date Data Source [id number] 02/16/2019 05:34:44 AM EST [facility] Name Value Range Interpretation Description Data Sup porting Code Source(s) Document(s ) Albumin 2.3 g/dL 3.5-4.7 Below low normal [facility] [Mass/volume] Zoroastrianism in Serum or Hospital Plasma by Bromocresol purple (BCP) dye binding method ID Date Data Source [id number] 02/16/2019 05:32:49 AM EST [facility] Name Value Range Interpretation Description Data Sup porting Code Source(s) Document(s ) Leukocytes 8.1 K/uL 4.8-10.6 [facility] - [#/volume] in Good Blood by Zoroastrianism Automated count [facility] Erythrocytes 3.96 4.70-6.0 Below low normal [facility] - [#/volume] in M/uL 0 Good Blood by Zoroastrianism Automated [facility] Hemoglobin 12.6 14.0-18. Below low normal [facility] - [Mass/volume] in g/dL 0 Good Blood [facility] Hematocrit 39.9 % 42.0-52. Below low normal [facility] - [Volume 0 Good Fraction] of Zoroastrianism Blood by Hospital Automated count Erythrocyte mean 100.8 FL 81.0-94. Above high normal [facility] - corpuscular 0 Good volume [Entitic Zoroastrianism volume] by Hospital Automated count Erythrocyte mean 31.8 PG 27.0-35. [facility] - corpuscular 0 Good hemoglobin Zoroastrianism [Entitic mass] [facility] by Automated count Erythrocyte mean 31.6 30.7-37. [facility] - corpuscular g/dL 3 Good hemoglobin Zoroastrianism concentration [facility] [Mass/volume] by Automated count Erythrocyte 16.0 % 11.5-14. Above high normal [facility] - distribution 0 Good width [Ratio] by Zoroastrianism Automated count [facility] Platelets 261 K/uL 130-400 [facility] - [#/volume] in Good Blood by [facility] count [facility] Platelet mean 9.2 FL 9.2-11.8 [facility] - volume [Entitic Good volume] in Blood [facility] Automated Hospital count ID Date Data Source [id number] 02/15/2019 08:35:00 PM EST [facility] Name Value Range Interpretation Description Data Sup porting Code Source(s) Document(s ) Glucose 96 MG/DL 65-110 [facility] [Mass/volume] Zoroastrianism in Blood by [facility] Automated test strip ID Date Data Source [id number] 02/15/2019 07:28:53 PM EST [facility] Bedside shift change report given to VIANNEY MOSCOSO RN (oncoming nurse) by NASRIN PITTS (offgoing nurse). Report included the fo llowing information SBAR,Kardex, Intake/Output, MAR, Recent Results, Med Rec Status and Cardiac RhythmNSR. Name Value Range Interpretation Code Description Data Harriett rce(s) Supporting Document(s ) ID Date Data Source [id number] 02/15/2019 09:15:58 PM EST [facility] Name Value Range Interpretation Description Data Sup porting Code Source(s) Document(s ) Sodium 122 40-220 [facility] [Moles/volu MMOL/L [facility]] in Hospital Urine ID Date Data Source [id number] 02/15/2019 09:10:17 PM EST [facility] Name Value Range Interpretation Description Data Sup porting Code Source(s) Document(s ) Osmolality of 087 644-5363 [facility] - [facility] Urine MOSM/kg [facility] H2O Hospital ID Date Data Source [id number] 02/15/2019 05:38:52 PM EST [facility] Name Value Range Interpretation Description Data Sup porting Code Source(s) Document(s ) Glucose 114 MG/DL 65-110 Above high normal [facility] - [facility] [Mass/volume] Zoroastrianism in Blood by [facility] Automated test strip ID Date Data Source [id number] 02/15/2019 04:24:03 PM EST [facility] PULMONARY/ CCM- Consult NotePatient: Ivelisse Carlin [...] mg/ 5 mL (5 mL) soln oral ngxnalrf619 mg by Per G Tube route every [...] file 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 Contrast: A [...] Supporting Document(s ) ID Date Data Source [id number] 02/15/2019 12:39:08 PM EST [facility] Name Value Range Interpretation Description Data Sup porting Code Source(s) Document(s ) Glucose 151 MG/DL 65-110 Above high normal [facility] [Mass/volume] [facility]astrianism in Blood by Hospital Automated test strip ID Date Data Source [id number] 02/15/2019 12:08:55 PM EST [facility] ID Progress Note02/15/2019Subjective:Pt a waiting J- tube placement on SaturdayPatient with MR non verbal,unable to provide his tory.AfebrileWbc trending down.No new event overnightObjective:Vitals:Patient Vitals for the past 24 hrs: BP Temp Pulse Resp SoK75602/15/19 0757 121/51 97.7 F (36.5 C) 75 [...] Supporting Document(s ) ID Date Data Source [id number] 02/15/2019 12:56:36 PM [facility] Range Interpretation Description Data Sup porting Code Source(s) Document(s ) Urate 2.2 mg/dL 3.5-7.2 Below low normal [facility] [Mass/volu [facility]] in Hospital Serum or Plasma ID Date Data Source [id number] 02/15/2019 12:56:36 [facility] Interpretation Description Data Sup porting Code Source(s) Document(s ) NOLOINC 3.110 0.360-3.7 [facility] - Good uIU/mL [address] [place] [address] This assay result should be used in conj unction with information available from clinical evaluation and other diagnostic procedures. 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: [employer] ID Date Data Source [id number] 02/15/2019 12:48:15 PM EST [facility] Value Range Interpretation Description Data Sup porting Code Source(s) Document(s ) Osmolality of 291 280-300 [facility] - [facility] Serum or MOSM/kg [facility]astrianism Plasma H2O Hospital ID Date Data Source [id number] 02/15/2019 10:46:11 AM EST [facility] RENAL Progress NotePatient: Evelio Shukla hbein Sex: [...] 9.4 9.3Special Requests:Da te Value Ref Range [id number]/08/2019 NO SPECIAL REQUESTS FinalCulture result:D ate Value Ref Range [id number]/08/2019 NO GROWTH 5 DAYS FinalXR Results (most [...] [ ][ ]sabrina campbell [ ]Rosalio Frankel [facility]11 AM Name Value Range Interpretation Code Description Data Harriett rce(s) Supporting Document(s ) ID Date Data Source [id number] 02/15/2019 09:28:21 AM [facility] Progress NotePatient: Evelio Carlin Sex: male [...] 9.3 9.4 9.3Special Requests:Date Value Ref Range [id number]/2018 NO SPECIAL REQUESTS FinalCulture result:Date Value Ref Range [id number] NO GROWTH 5 DAYS FinalXR Results (most [...] Supporting Document(s ) ID Date Data Source [id number] 02/15/2019 09:11:01 AM EST [facility] Name Value Range Interpretation Description Data Sup porting Code Source(s) Document(s ) Glucose 96 MG/DL 65-110 [facility] [Mass/volume] [facility]oroastrianism in Blood by Hospital Automated test strip ID Date Data Source [id number] 02/15/2019 05:41:53 AM EST [facility] Name Value Range Interpretation Description Data Sup porting Code Source(s) Document(s ) Sodium 135 136-145 Below low normal [facility] [Moles/volume] mmol/L [facility]ism in Serum or Hospital Plasma Potassium 4.6 3.5-5.1 [facility] [Moles/volume] mmol/L [facility]ism in Serum or Hospital Plasma Chloride 98 98-107 [facility] [Moles/volume] mmol/L [facility]ism in Serum or Hospital Plasma Carbon 37 21-32 Above high normal [facility] - Good dioxide, total mmol/L [facility] [Moles/volume] Hospital in Serum or Plasma Anion gap in 5 mmol/L 10-20 Below low normal [facility] - Go od Serum or [facility] Plasma Hospital Glucose 118 74-106 Above high normal [facility] - [facility] [Mass/volume] mg/dL [facility]rianism in Serum or Hospital Plasma Urea nitrogen 12 mg/dL 7-18 [facility] [Mass/volume] Zoroastrianism in Serum or Hospital Plasma Creatinine 0.36 0.70-1.3 Below low normal [facility] - [facility] [Mass/volume] mg/dL 0 [facility]astrianism in Serum or Hospital Plasma Glomerular >60 [facility] - Good filtration [facility]astrianism rate/1.73 sq M Hospital predicted among blacks [Volume Rate/Area] in Serum or Plasma by Creatinine-bas ed formula (MDRD) Glomerular >60 [facility] - Good filtration [facility]astrianism rate/1.73 sq M Hospital predicted among non-blacks [Volume Rate/Area] in Serum or Plasma by Creatinine-bas ed formula (MDRD) Calcium 9.3 8.5-10.1 [facility] - Good [Mass/volume] mg/dL [facility]astrianism in Serum or Hospital Plasma ID Date Data Source [id number] 02/15/2019 05:41:53 AM EST [facility] Name Value Range Interpretation Description Data Sup porting Code Source(s) Document(s ) Magnesium 1.9 mg/dL 1.6-2.6 [facility] [Mass/volume] [facility]oroastrianism in Serum or Hospital Plasma ID Date Data Source [id number] 02/15/2019 06:11:32 AM EST [facility] Name Value Range Interpretation Description Data Sup porting Code Source(s) Document(s ) Leukocytes 8.7 K/uL 4.8-10.6 [facility] - [#/volume] in Good Blood by [facility] Erythrocytes 4.19 4.70-6.0 Below low normal [facility] - [#/volume] in M/uL 0 Good Blood by [facility] Hemoglobin 13.4 14.0-18. Below low normal [facility] - [Mass/volume] in g/dL 0 Good Blood [facility] Hematocrit 42.4 % 42.0-52. [facility] - [Volume 0 Good Fraction] of Zoroastrianism Blood by [facility] Automated count Erythrocyte mean 101.2 FL 81.0-94. Above high normal [facility] - corpuscular 0 Good volume [Entitic [facility]oroastrianism volume] by Hospital Automated count Erythrocyte mean 32.0 PG 27.0-35. [facility] - corpuscular 0 Good hemoglobin [facility] [Entitic mass] Hospital by Automated count Erythrocyte mean 31.6 30.7-37. [facility] - corpuscular g/dL 3 Good hemoglobin [facility] [Mass/volume] by Automated count Erythrocyte 16.0 % 11.5-14. Above high normal [facility] - distribution 0 Good width [Ratio] by [facility]oroastrianism Automated count Hospital Platelets 287 K/uL 130-400 [facility] - [#/volume] in [facility] Blood by Zoroastrianism Automated count Hospital Platelet mean 9.5 FL 9.2-11.8 [facility] - volume [Entitic Good volume] in [facility] by Automated Hospital count Segmented 84 % 48.0-72. Above high normal [facility] - neutrophils/100 [address] Good leukocytes in [facility] Lymphocytes/100 13 % 18.0-40. Below low normal [facility] - leukocytes in 0 [facility] Monocytes/100 3 % 2.0-12.0 [facility] - leukocytes in [facility] Eosinophils/100 0 % 0.0-7.0 [facility] - leukocytes in [facility] Basophils/100 0 % 0.0-3.0 [facility] - leukocytes in [facility] Segmented 7.2 K/UL 1.5-6.6 Above high normal [facility] - neutrophils Good [#/volume] in [facility] Lymphocytes 1.1 K/UL 1.5-3.5 Below low normal [facility] - [#/volume] in [facility] Monocytes 0.3 K/UL 0.0-1.0 [facility] - [#/volume] in [facility] Eosinophils 0.0 K/UL 0.0-0.7 [facility] - [#/volume] in [facility] Basophils 0.0 K/UL 0.0-0.1 [facility] - [#/volume] in [facility] Differential [facility] - cell count [facility] method [facility] Immature 2 % 0.0-2.0 [facility] - granulocytes/100 Good leukocytes in [facility] Hospital Automated count ID Date Data Source [id number] 02/15/2019 06:09:11 AM EST [facility] Name Value Range Interpretation Description Data Sup porting Code Source(s) Document(s ) Prothrombin 11.0 sec 9.4-11.1 BSS - Good time (PT) [facility] INR in 1.1 0.8-1.2 [facility] - Good Platelet poor [facility] plasma by Hospital Coagulation assay ID Date Data Source [id number] 02/15/2019 01:41:45 AM EST [facility] Problem: Falls - Risk ofGoal: *Absence [...] Supporting Document(s ) ID Date Data Source [id number] 02/14/2019 09:24:18 PM EDT [facility] [facility] [place] [facility] Name Value Range Interpretation Description Data Sup porting Code Source(s) Document(s ) Glucose 100 MG/DL 65-110 [facility] [Mass/volume] Zoroastrianism in Blood by Hospital Automated test strip ID Date Data Source [id number] 02/14/2019 07:43:15 PM EDT [facility] Bedside and Verbal shift change report g iven to Lucien Castaneda RN (oncoming nurse)by Reny Galeas RN(offgoing nurse). Repor t given with SBAR, Kardex, Intake/Output, MAR and RecentResults. Name Value Range Interpretation Code Description Data [facility] rce(s) Supporting Document(s ) ID Date Data Source [id number] 02/14/2019 05:43:45 PM EDT [facility] PULMONARY/ CCM- Consult NotePatient: Ivelisse Carlin [...] mg/ 5 mL (5 mL) soln oral onqybrwb189 mg by Per G Tube route every [...] DISCHARGE. 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 Use Smoking status: Never Smoker Smokeless tobacco: [...] 065 9 02/14/19 07 - 02/15/19 0659Shift 5089-8293 3792-3231 24 Hour Total 0700-1 859 3960-3905 24 Hour TotalINTAKENG/GT 700 700 Water Flush [...] Supporting Document(s ) ID Date Data Source [id number] 02/14/2019 04:44:00 PM EDT [facility] Name Value Range Interpretation Description Data Sup porting Code Source(s) Document(s ) Glucose 110 MG/DL 65-110 [facility] [Mass/volume] Zoroastrianism in Blood by Hospital Automated test strip ID Date Data Source [id number] 02/14/2019 04:13:19 PM EDT [facility] Bedside and Verbal shift change report g iven to Reny Galeas RN (oncoming nurse)by Elaine Galeas RN(offgoing nurse). Report given with SBAR, Kardex, Intake/Output, MAR and RecentResults. Name Value Range Interpretation Code Description Data Harriett rce(s) Supporting Document(s ) ID Date Data Source [id number] 02/14/2019 01:19:26 PM EDT [facility] ID Progress Note02/14/2019Subjective:Pt a waiting J- tube placement on SaturdayPatient with MR non verbal,unable to provide his tory.AfebrileWbc trending down.Objective:Vitals:Patient Vitals for the past 24 hrs: BP Temp Pulse Resp YvE47102/14/19 1203 133/90 98.6 F (37 C) 85 [...] masses, No organomegaly.+pegBack: No CVA tenderness.Extremities: No cyanosis,instrument and electrical technician nicolas lymphedemaPulses: 2+ and symmetric all extremities.Skin: [...] Supporting Document(s ) ID Date Data Source [id number] 02/14/2019 12:05:30 PM EDT [facility] Name Value Range Interpretation Description Data Sup porting Code Source(s) Document(s ) Glucose 103 MG/DL 65-110 [facility] [Mass/volume] Zoroastrianism in Blood by Hospital Automated test strip ID Date Data Source [id number] 02/14/2019 09:58:45 AM EDT [facility] Patient non-verbal.Visit VitalsBP 141/89 (BP 1 [...] Supporting Document(s ) ID Date Data Source [id number] 02/14/2019 09:22:07 AM EDT [facility] Progress NotePatient: Evelio Carlin Sex: male [...] 9.3 -- 9.0Special Requests:Date Value Ref Range Vzygej2602/08/2019 NO SPEC IAL REQUESTS FinalCulture result:Date Value Ref Range Cebuya4202/08/2019 NO GROWTH 5 D AYS FinalXR Results [...] Name Value Range Interpretation Code Description [facility] ) ID Date Data Source [id number] 02/14/2019 08:22:55 AM EDT [facility] Name Value Range Interpretation Description Data Sup porting Code Source(s) Document(s ) Glucose 86 MG/DL 65-110 [facility] [Mass/volume] Zoroastrianism in Blood by [facility] Automated test strip ID Date Data Source [id number] 02/14/2019 07:42:53 AM EDT [facility] Bedside and Verbal shift change report carol pham to Elaine Galeas RN (oncoming nurse)by Alfred Benson RN(offgoing nurse). Report given with SBAR, Kardex, Intake/Output, MAR and RecentResults. Name Value Range Interpretation Code Description Data [facility] Supporting Document(s ) ID Date Data Source [id number] 02/14/2019 07:02:32 AM EDT [facility] Name Value Range Interpretation Description Data Sup porting Code Source(s) Document(s ) Leukocytes 9.6 K/uL 4.8-10.6 [facility] - [#/volume] in Good Blood by Zoroastrianism Automated count Hospital Erythrocytes 3.90 4.70-6.0 Below low normal [facility] - [#/volume] in M/uL 0 Good Blood by [facility] count [facility] Hemoglobin 12.5 14.0-18. Below low normal [facility] - [Mass/volume] in g/dL 0 Good Blood [facility] Hematocrit 38.6 % 42.0-52. Below low normal [facility] - [Volume 0 Good Fraction] of Zoroastrianism Blood by Hospital Automated count Erythrocyte mean 99.0 FL 81.0-94. Above high normal [facility] - corpuscular 0 Good volume [Entitic Zoroastrianism volume] by Hospital Automated count Erythrocyte mean 32.1 PG 27.0-35. [facility] - corpuscular 0 Good hemoglobin Zoroastrianism [Entitic mass] Hospital by Automated count Erythrocyte mean 32.4 30.7-37. [facility] - corpuscular g/dL 3 Good hemoglobin Zoroastrianism concentration [facility] [Mass/volume] by Automated count Erythrocyte 15.9 % 11.5-14. Above high normal [facility] - distribution 0 Good width [Ratio] by Zoroastrianism Automated count [facility] Platelets 305 K/uL 130-400 [facility] - [#/volume] in Good Blood by Zoroastrianism Automated [facility] Platelet mean 9.4 FL 9.2-11.8 [facility] - volume [Entitic Good volume] in Blood Zoroastrianism by Automated Hospital count ID Date Data Source [id number] 02/14/2019 06:37:42 AM EDT [facility] Name Value Range Interpretation Description Data Sup porting Code Source(s) Document(s ) Sodium 136 136-145 [facility] [Moles/volume] mmol/L Zoroastrianism in Serum or Hospital Plasma Potassium 4.5 3.5-5.1 [facility] [Moles/volume] mmol/L Zoroastrianism in Serum or Hospital Plasma Chloride 98 98-107 [facility] [Moles/volume] mmol/L Zoroastrianism in Serum or Hospital Plasma Carbon 33 21-32 Above high normal [facility] - Good dioxide, total mmol/L Zoroastrianism [Moles/volume] Hospital in Serum or Plasma Anion gap in 9 mmol/L 10-20 Below low normal [facility] - Go od Serum or Zoroastrianism Plasma Hospital Glucose 119 74-106 Above high normal [facility] [Mass/volume] mg/dL Zoroastrianism in Serum or Hospital Plasma Urea nitrogen 15 mg/dL 7-18 [facility] [Mass/volume] Zoroastrianism in Serum or Hospital Plasma Creatinine 0.27 0.70-1.3 Below low normal [facility] [Mass/volume] mg/dL 0 Zoroastrianism in Serum or Hospital Plasma Glomerular >60 [facility] - [facility] filtration Zoroastrianism rate/1.73 sq M Hospital predicted among blacks [Volume Rate/Area] in Serum or Plasma by Creatinine-bas ed formula (MDRD) Glomerular >60 [facility] - [facility] filtration Zoroastrianism rate/1.73 sq M Hospital predicted among non-blacks [Volume Rate/Area] in Serum or Plasma by Creatinine-bas ed formula (MDRD) Calcium 9.4 8.5-10.1 [facility] [Mass/volume] mg/dL Zoroastrianism in Serum or Hospital Plasma ID Date Data Source [id number] 02/14/2019 06:37:42 AM EDT [facility] Name Value Range Interpretation Description Data Sup porting Code Source(s) Document(s ) Magnesium 1.8 mg/dL 1.6-2.6 [facility] [Mass/volume] Zoroastrianism in Serum or Hospital Plasma ID Date Data Source [id number] 02/13/2019 09:07:00 PM EDT [facility] Name Value Range Interpretation Description Data Sup porting Code Source(s) Document(s ) Glucose 106 MG/DL 65-110 [facility] [Mass/volume] Zoroastrianism in Blood by [facility] Automated test strip ID Date Data Source [id number] 02/13/2019 07:29:46 PM EDT [facility] Bedside and Verbal shift change report carol pham to Angel Mustachio,RN (oncomingnurse) by Rama Jaimes RN(offgoing nurse). Rep ort given with SBAR, Kardex, Intake/Output, MAR and RecentResults. Name Value Range Interpretation Code Description Data Harriett rce(s) Supporting Document(s ) ID Date Data Source [id number] 02/13/2019 04:47:31 PM EDT [facility] Name Value Range Interpretation Description Data Sup porting Code Source(s) Document(s ) Glucose 120 MG/DL 65-110 Above high normal [facility] [Mass/volume] Zoroastrianism in Blood by [facility] Automated test strip ID Date Data Source [id number] 02/13/2019 03:25:56 PM EDT [facility] ID Progress Note02/13/2019Subjective:Siri ent with MR non verbal,unable to provide history.AfebrileWbc trending down.Object britni:Vitals:Patient Vitals for the past 24 hrs: BP Temp Pulse Resp ImF62102/13/19 131 2 106/67 96.6 F (35.9 C) [...] Supporting Document(s ) ID Date Data Source [id number] 02/13/2019 01:06:04 PM EDT [facility] Name Value Range Interpretation Description Data Sup porting Code Source(s) Document(s ) Glucose 105 MG/DL 65-110 [facility] [Mass/volume] Zoroastrianism in Blood by Hospital Automated test strip ID Date Data Source [id number] 02/13/2019 12:39:46 PM EDT [facility] NUTRITIONFollow Up NoteSubjective:Pt kristofer eduled to [...] Supporting Document(s ) ID Date Data Source [id number] 02/13/2019 12:38:58 PM EDT [facility] Problem: Nutrition DeficitGoal: *Optimiz e nutritional statusDescriptionPt to progress towards meeting >80% estimated needs wit hin 3-7 daysOutcome: Progressing Towards Goal Recommend continue current EN rx Name Value Range Interpretation Code Description Data Harriett rce(s) Supporting Document(s ) ID Date Data Source [id number] 02/13/2019 12:30:19 PM EDT [facility] Progress NotePatient: Evelio Carlin Sex: male [...] retardationObjective:Visit VitalsBP (!) 155/101 (BP 1 Location: [facility] ht arm, BP Patient Position: At rest;Supine)Pulse [...] 9.0 8.8Special Requests:Date Va lue Ref Range Cdtwli0702/08/2019 NO SPECIAL REQUESTS FinalCulture result:Date Valu e Ref Range Zdzfoj9802/08/2019 NO GROWTH 5 DAYS FinalXR Results (most [...] Supporting Document(s ) ID Date Data Source [id number] 02/13/2019 11:23:04 AM EDT [facility] Pt scheduled for placement of j tube thr ough g tube today however procedure willneed to be postponed until additional equipme nt is available on Saturday.The j tube insert can only be placed through an original 2 4fr PEG tube. Thepatient has a 24fr lozano through his gastrocutaneous fistula trac t and thehospital does not carry a 24fr primary PEG. Confirmed with [employer] Scie ntificdevice rep that the j tube insert can not be placed through a replacement gtub e. Thus hospital will order 24fr PEG which will need to be placed throughthe existi ng tract and through which the j-tube can be inserted. Plan forMonday, can resume . 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 Use Smoking status: Never Smoker Smokeless tobacco: [...] (5 mL) oral mg, 750 mg, Oral, Q12H, Chay Oswald [...] 02/13/19 1008, 100 mL/hr at104/15/18 1008 pantoprazole (PA OTONIX) granules for oral suspension 40 mg, [...] Output:Date 02/12/19699 - 02/13/1965802/13/19699 - 02/14/19 0659Shift 0475-1075 4482-7765 24 Hour Total 9760-8654 0084-8284 24 Hour TotalINTAKENG/GT 160 160 Water Flush [...] Supporting Document(s ) ID Date Data Source [id number] 02/13/2019 08:40:08 AM EDT [facility] Name Value Range Interpretation Description Data Sup porting Code Source(s) Document(s ) Glucose 93 MG/DL 65-110 [facility] [Mass/volume] Zoroastrianism in Blood by Hospital Automated test strip ID Date Data Source [id number] 02/13/2019 07:42:33 AM EDT [facility] Bedside and Verbal shift change report g iven to Rama Jaimes RN (oncomingnurse) by Asif Nicole RN (offgoing nurse). Rep ort included the following information SBAR, Kardex, MAR,Accordion and Recent Results . Name Value Range Interpretation Code Description Data Harriett rce(s) Supporting Document(s ) ID Date Data Source [id number] 02/13/2019 03:50:07 AM EDT [facility] Name Value Range Interpretation Description Data Sup porting Code Source(s) Document(s ) Magnesium 2.0 mg/dL 1.6-2.6 [facility] [Mass/volume] Zoroastrianism in Serum or Hospital Plasma ID Date Data Source [id number] 02/13/2019 03:50:07 AM EDT [facility] Name Value Range Interpretation Description Data Sup porting Code Source(s) Document(s ) Sodium 136 136-145 [facility] [Moles/volume] mmol/L Zoroastrianism in Serum or Hospital Plasma Potassium 4.4 3.5-5.1 [facility] [Moles/volume] mmol/L Zoroastrianism in Serum or Hospital Plasma Chloride 98 98-107 [facility] [Moles/volume] mmol/L Zoroastrianism in Serum or Hospital Plasma Carbon 36 21-32 Above high normal [facility] - [facility] dioxide, total mmol/L Zoroastrianism [Moles/volume] Hospital in Serum or Plasma Anion gap in 7 mmol/L 10-20 Below low normal [facility] - Go od Serum or Zoroastrianism Plasma Hospital Glucose 114 74-106 Above high normal [facility] [Mass/volume] mg/dL Zoroastrianism in Serum or Hospital Plasma Urea nitrogen 10 mg/dL 7-18 [facility] [Mass/volume] Zoroastrianism in Serum or Hospital Plasma Creatinine 0.32 0.70-1.3 Below low normal [facility] [Mass/volume] mg/dL 0 Zoroastrianism in Serum or Hospital Plasma Glomerular >60 [facility] - [facility] filtration Zoroastrianism rate/1.73 sq M Hospital predicted among blacks [Volume Rate/Area] in Serum or Plasma by Creatinine-bas ed formula (MDRD) Glomerular >60 [facility] - [facility] filtration Zoroastrianism rate/1.73 sq M Hospital predicted among non-blacks [Volume Rate/Area] in Serum or Plasma by Creatinine-bas ed formula (MDRD) Calcium 9.3 8.5-10.1 [facility] [Mass/volume] mg/dL Zoroastrianism in Serum or Hospital Plasma ID Date Data Source [id number] 02/13/2019 03:40:50 AM EDT [facility] Name Value Range Interpretation Description Data Sup porting Code Source(s) Document(s ) Leukocytes 8.4 K/uL 4.8-10.6 [facility] - [#/volume] in Good Blood by Zoroastrianism Automated count [facility] Erythrocytes 4.15 4.70-6.0 Below low normal [facility] - [#/volume] in M/uL 0 Good Blood by Zoroastrianism Automated count [facility] Hemoglobin 13.2 14.0-18. Below low normal [facility] - [Mass/volume] in g/dL 0 Good Blood [facility] Hematocrit 41.6 % 42.0-52. Below low normal [facility] - [Volume 0 Good Fraction] of Zoroastrianism Blood by Hospital Automated count Erythrocyte mean 100.2 FL 81.0-94. Above high normal [facility] - corpuscular 0 Good volume [Entitic Zoroastrianism volume] by Hospital Automated count Erythrocyte mean 31.8 PG 27.0-35. [facility] - corpuscular 0 Good hemoglobin Zoroastrianism [Entitic mass] [facility] by Automated count Erythrocyte mean 31.7 30.7-37. [facility] - corpuscular g/dL 3 Good hemoglobin [facility] [Mass/volume] by Automated count Erythrocyte 15.6 % 11.5-14. Above high normal [facility] - distribution 0 Good width [Ratio] by Zoroastrianism Automated count Hospital Platelets 300 K/uL 130-400 [facility] - [#/volume] in Good Blood by Zoroastrianism Automated count Hospital Platelet mean 9.3 FL 9.2-11.8 [facility] - volume [Entitic Good volume] in Blood Zoroastrianism by Automated Hospital count ID Date Data Source [id number] 02/13/2019 01:19:04 AM EDT [facility] Problem: Falls - Risk ofGoal: *Absence [...] Supporting Document(s ) ID Date Data Source [id number] 02/12/2019 10:58:46 PM EDT [facility] PULMONARY/ CCM- Consult NotePatient: Ivelisse Carlin [...] 250 mg/5 mL (5 mL) soln oral [id number] mg by Per G Tube route every [...] file 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 Use Smoking status: Never Smoker Smokeless tobacco: [...] Q6HRT, Stella Hamilton MD, 3 mL at 02/12/19 0747 acetylcysteine [...] Tab, 1 Tab, Per G Tube, DA PIERRE,Cahy Palma MD, 1 Tab at 02/12/19 0912 valproic acid (as sodium salt) (DEPAKENE) 250 mg/5 mL (5 mL) oral vmagaaef513 mg, 750 mg, Oral, Q12H, Chay Oswald [...] - 02/12/19 0602/12/19699 - 02/13/19 0 659Shift 3543-6816 5079-7817 24 Hour Total 5983-8757 2298-1397 24 Hour TotalINTAKEI .V.(mL/kg/hr) 100(0.1) 1200(1.6) 1300(0.9) Volume (0.9% sodium chloride infusion) 1000 1000 Volume (cefepime (MAXIPIME) 2 g in 0.9% sodium chloride (MBP/ADV) 100 mL MB P)100 200 300NG/GT 152 258 3306 Water Flush Volume (mL) (Feeding Tube ) [...] Supporting Document(s ) ID Date Data Source [id number] 02/12/2019 09:28:53 PM EDT [facility] Name Value Range Interpretation Description Data Sup porting Code Source(s) Document(s ) Glucose 99 MG/DL 65-110 [facility] [Mass/volume] Zoroastrianism in Blood by Hospital Automated test strip ID Date Data Source [id number] 02/12/2019 06:36:08 PM EDT [facility] Bedside and Verbal shift change report g iven to abbey nicole rn (oncoming nurse) Tay Delacruz RN(offgoing nurse). Report given with SBAR, Kardex, Intake/Output, MAR and RecentResults. Name Value Range Interpretation Code Description Data Harriett rce(s) Supporting Document(s ) ID Date Data Source [id number] 02/12/2019 06:27:28 PM EDT [facility] ID Progress Note02/12/2019Subjective:Pat ient with MR non verbal,unable to provide history.AfebrileWbc trending down.Object britni:Vitals:Patient Vitals for the past 24 hrs: BP Temp Pulse Resp QnC33102/12/19 145 0 118/72 98.6 F (37 C) [...] Supporting Document(s ) ID Date Data Source [id number] 02/12/2019 04:47:35 PM EDT [facility] Name Value Range Interpretation Description Data Sup porting Code Source(s) Document(s ) Glucose 115 MG/DL 65-110 Above high normal [facility] [Mass/volume] Zoroastrianism in Blood by Hospital Automated test strip ID Date Data Source [id number] 02/12/2019 03:06:56 PM EDT [facility] A YUAN started. Name Value Range Interpretation Code Description Data Harriett rce(s) Supporting Document(s ) ID Date Data Source [id number] 02/12/2019 01:46:02 PM EDT [facility] Relevant ProblemsNo relevant active prob lemsAnesthetic [...] Supporting Document(s ) ID Date Data Source [id number] 02/12/2019 01:06:56 PM EDT [facility] GI CONSULTATION NOTENAME: Evelio Abraham beinDOB: 1950MRN: [id number] Physician: ReinierConsult Date: 9Chief Complaint: ? aspirationHistory [...] 250 mg/5 mL (5 mL) soln oral uswroaex03/27/2019 at 0830 Yes YesSi mg by Per [...] past 8 hrs: BP Temp Pulse Resp UkO72802/12/19 1107 133/88 98.4 F (36.9 C) 85 [...] insight. Not anxious nor agitated.Data ReviewRecent Labs 40487 WBC 6.9 10.9*HGB 12.3* 11.5*HCT 37.4* 35.8*PLT [...] hernia K44.9 COPD (chronic obstructive pulmonary disease) ([facility]) J44.9 Acute respiratory distress R06.03 Pneumonia J18.9 COPD exacerbation ([facility]) J44.1 Sepsis due to undetermined organism ([facility]) A41.9 Generalized anxiety disorder F41.1 Acute respiratory failur e with hypoxia ([facility]) J96.01 Pneumonia involving right lung J18.9 Hyponatremia E87.1 SOB (shortness of breath) R06.02 Pressure injury of right heel, stage 2 ( [facility]) L89.612 Leg wound, right, initial encounter S81.884APlan:Will contact reilly pompa. GT to JT conversion kit is being fed ex'd and should beavailable for procedure amelia crenshaweleazar. Name Value Range Interpretation Code Description Data Harriett rce(s) Supporting Document(s ) ID Date Data Source [id number] 02/12/2019 12:27:25 PM EDT [facility] discharged pt. [facility] arranged for 2:30 pm. RN made aware.Call placed to pt's decision maker Joyce ([phone]) to make awar e ofdischarge and pt to return to [facility] today. Decision maker Joycequestioning when pt will [...] not allow pt to be discharged back [facility] until seen by GI and a J t ube is placed as family feels pt is"aspirating due to PEG tube being to h igh". Decision maker Joyce reports shewill appeal the discharge.Spoke with who w as made aware. Spoke with RN who was made aware. reports to continue with discha rge back to [facility]. Name Value Range Interpretation Code Description Data Harriett rce(s) Supporting Document(s ) ID Date Data Source [id number] 02/12/2019 12:04:17 PM EDT [facility] Progress NotePatient: Evelio Carlin Sex: male [...] 8.7 --Special Reque sts:Date Value Ref Range Mzzydw9602/08/2019 NO SPECIAL REQUESTS PreliminaryCulture re sult:Date Value Ref Range Tdsyiq6402/08/2019 NO GROWTH 4 DAYS PreliminaryXR Results (m [...] therapy [ ][ ]family [ ]PatientChristos Lopez MDFormerly [facility] 2018[facility]44 AM Name Value Range Interpretation Code Description Data Harriett rce(s) Supporting Document(s ) ID Date Data Source [id number] 02/12/2019 11:38:51 AM EDT [facility] Discharge SummaryPatient: Evelio Parks cain Sex: male [...] Present Leg wound, right, initial encounter ICD-10-CM: S81.388UFKI-8-OK: 8 94.0 02/09/2019 - Present SOB (shortness [...] 250 mg/5 mL (5 mL) soln oral elvldnwo741 mg by Per G Tube route every [...] pulmocare or equivale ntDischarge to: [facility]Follow-[facility]: Follow up with dr whitt/ john. Christos Lopez MDFormerly [facility] 2018 Name Value Range Interpretation Code Description Data Harriett rce(s) Supporting Document(s ) ID Date Data Source [id number] 02/12/2019 09:09:55 AM EDT [facility] Name Value Range Interpretation Description Data Sup porting Code Source(s) Document(s ) pH of Arterial 7.47 7.35-7.4 Above high normal [facility] blood 5 [facility] Carbon dioxide 49 mmHg 32-48 Above high normal [facility] - [facility] [Partial Zoroastrianism pressure] in Hospital Arterial blood Oxygen 64 mmHg 83-108 Below low normal [facility] [Partial Zoroastrianism pressure] in Hospital Arterial blood Carbon 37 19-24 Above high normal [facility] - [facility] dioxide, total mmol/L Zoroastrianism [Moles/volume] Hospital in Arterial blood Bicarbonate 36 21-28 Above high normal [facility] - Go od [Moles/volume] mmol/L [facility]rianism in Arterial Hospital blood Oxygen 94 % 94-98 [facility] - [facility] saturation in Zoroastrianism Blood [facility] Base excess in 10.4 0-3 Above high normal [facility] - [facility] Arterial blood mmol/L Zoroastrianism by calculation Hospital Body site [facility] Arterial [facility] - [facility] patency Wrist Zoroastrianism artery --pre Hospital arterial puncture Oxygen gas [facility] - [facility] flow Oxygen Zoroastrianism delivery [facility] system Oxygen/Inspire 21.0 % [facility] - [facility] d gas Zoroastrianism Respiratory [facility] system --on ventilator Service 61356 [facility] - [facility] comment [facility] ID Date Data Source [id number] 02/12/2019 07:45:37 AM EDT [facility] CHEST one viewHISTORY: Followup lung pat [...] IMP IMPRESSION: No [facility] - [facility] significant Zoroastrianism change. Hospital Signing date/time: 02/12/2019 7:45 AMS igned by: LIONEL LOCKHART ID Date Data Source [id number] 02/12/2019 07:31:46 AM EDT [facility] Bedside and Verbal shift change report g ellynen to Dorothea Delacruz RN (oncoming nurse)by German Rocha RN. Report included the following information SBAR, ProcedureSummary, Intake/Output, MAR, Recent Results and C ardiac Rhythm . ' Name Value Range Interpretation Code Description Data Harriett rce(s) Supporting Document(s ) ID Date Data Source [id number] 02/12/2019 07:30:59 AM EDT [facility] rate change from 45 to 55ml/Hr Name Value Range Interpretation Code Description Data Harriett rce(s) Supporting Document(s ) ID Date Data Source [id number] 02/12/2019 05:54:01 AM EDT [facility] Name Value Range Interpretation Description Data Sup porting Code Source(s) Document(s ) Sodium 137 136-145 [facility] - [facility] [Moles/volume] mmol/L [facility] in Serum or Hospital Plasma Potassium 4.0 3.5-5.1 [facility] [Moles/volume] mmol/L [facility] in Serum or Hospital Plasma Chloride 99 98-107 [facility] [Moles/volume] mmol/L [facility] in Serum or Hospital Plasma Carbon 35 21-32 Above high normal [facility] - [facility] dioxide, total mmol/L [facility] [Moles/volume] Hospital in Serum or Plasma Anion gap in 7 mmol/L 10-20 Below low normal [facility] - Go od Serum or [facility] Plasma Hospital Glucose 114 74-106 Above high normal [facility] [Mass/volume] mg/dL [facility] in Serum or Hospital Plasma Urea nitrogen 13 mg/dL 7-18 [facility] [Mass/volume] [facility] in Serum or Hospital Plasma Creatinine 0.32 0.70-1.3 Below low normal [facility] [Mass/volume] mg/dL 0 [facility] in Serum or Hospital Plasma Glomerular >60 [facility] - Good filtration [facility] rate/1.73 sq M Hospital predicted among blacks [Volume Rate/Area] in Serum or Plasma by Creatinine-bas ed formula (MDRD) Glomerular >60 [facility] - Good filtration [facility] rate/1.73 sq M Hospital predicted among non-blacks [Volume Rate/Area] in Serum or Plasma by Creatinine-bas ed formula (MDRD) Calcium 9.0 8.5-10.1 [facility] - [facility] [Mass/volume] mg/dL [facility] in Serum or Hospital Plasma ID Date Data Source [id number] 02/12/2019 05:54:01 AM EDT [facility] Name Value Range Interpretation Description Data Sup porting Code Source(s) Document(s ) Magnesium 2.0 mg/dL 1.6-2.6 [facility] [Mass/volume] [facility] in Serum or Hospital Plasma ID Date Data Source [id number] 02/12/2019 05:49:41 AM EDT [facility] Name Value Range Interpretation Description Data Sup porting Code Source(s) Document(s ) Leukocytes 6.9 K/uL 4.8-10.6 [facility] - [#/volume] in Good Blood by [facility] Automated count Hospital Erythrocytes 3.80 4.70-6.0 Below low normal [facility] - [#/volume] in M/uL 0 Good Blood by [facility] Hemoglobin 12.3 14.0-18. Below low normal [facility] - [Mass/volume] in g/dL 0 Good Blood [facility] Hematocrit 37.4 % 42.0-52. Below low normal [facility] - [Volume 0 Good Fraction] of [facility] Blood by Hospital Automated count Erythrocyte mean 98.4 FL 81.0-94. Above high normal [facility] - corpuscular 0 Good volume [Entitic [facility] volume] by Hospital Automated count Erythrocyte mean 32.4 PG 27.0-35. [facility] - corpuscular 0 Good hemoglobin [facility] [Entitic mass] Hospital by Automated count Erythrocyte mean 32.9 30.7-37. [facility] - corpuscular g/dL 3 Good hemoglobin [facility]ism concentration [facility] [Mass/volume] by Automated count Erythrocyte 15.4 % 11.5-14. Above high normal [facility] - distribution 0 Good width [Ratio] by [facility] Automated count [facility] Platelets 314 K/uL 130-400 [facility] - [#/volume] in Good Blood by [facility] Platelet mean 9.6 FL 9.2-11.8 [facility] - volume [Entitic Good volume] in Blood [facility] by Automated Hospital count Segmented 71 % 48.0-72. [facility] - neutrophils/100 [address] [facility] Lymphocytes/100 22 % 18.0-40. [facility] - leukocytes in 0 [facility] Monocytes/100 7 % 2.0-12.0 [facility] - leukocytes in [facility] Eosinophils/100 0 % 0.0-7.0 [facility] - leukocytes in [facility] Basophils/100 0 % 0.0-3.0 [facility] - leukocytes in [facility] Segmented 4.9 K/UL 1.5-6.6 [facility] - neutrophils Good [#/volume] in [facility] Lymphocytes 1.5 K/UL 1.5-3.5 [facility] - [#/volume] in [facility] Monocytes 0.5 K/UL 0.0-1.0 [facility] - [#/volume] in [facility] Eosinophils 0.0 K/UL 0.0-0.7 [facility] - [#/volume] in [facility] Basophils 0.0 K/UL 0.0-0.1 [facility] - [#/volume] in [facility] Differential [facility] - cell count [facility] method [facility] Immature 1 % 0.0-2.0 [facility] - granulocytes/100 [facility] leukocytes in [facility] by Hospital Automated count ID Date Data Source [id number] 02/12/2019 03:10:12 AM EDT [facility] Problem: Falls - Risk ofGoal: *Absence [...] Supporting Document(s ) ID Date Data Source [id number] 02/11/2019 08:27:21 PM EDT [facility] - G od [facility] Name Value Range Interpretation Description Data Sup porting Code Source(s) Document(s ) Glucose 96 MG/DL 65-110 [facility] [Mass/volume] [facility] in Blood by Hospital Automated test strip ID Date Data Source [id number] 02/11/2019 07:32:13 PM EDT [facility] Bedside and Verbal shift change report g iven to German Cordero RN (oncomingnurse) by Reny Galeas RN(offgoing nurse). Repor t given with SBAR, Kardex, Intake/Output, MAR and RecentResults. Name Value Range Interpretation Code Description Data [facility] rce(s) Supporting Document(s ) ID Date Data Source [id number] 02/11/2019 05:27:57 PM EDT [facility] Progress NoteMID[facility] ,[facility].Krystian Monae MD., F.C.C.P.Stella Hamilton MD., F.C.C.P. [address] [place] [id number] [place] [address] [phone]: Evelio Carlin Sex: male DOA: 02/08/2019D ate of : 1950 Age: 68 y.o. LOS: LOS: 3 daysSubjective:HE IS MORE AWAKE TODAY , LOOKS AT THE EXAMINER ..HISTORY OF PRESENT ILLNESS: The patie nt is a 68-year-old severely mentallyretardedpatient who was transfer red back from the intermediate with marked lethargy,fever,cough, and unresponsivene ss. The [...] 24 hrs: BP Temp Pulse Resp SpO2 Prdeir41/30/19 1529 111/ 79 97.9 F (36.6 C) [...] Procedure Component Value Units Date/Time CULTURE, BLOOD [[id number]] Col lected: 02/08/191699 Order Status: Completed Specimen: Blood Updated: 628 Special Requests: NO SPECIAL REQUESTS Culture result: NO GROWTH 3 DA YS CULTURE, BLOOD [[id number]] Collected: 02/08/191718 Order Status: Completed S pecimen: Blood Updated: 02/11/19628 Special Requests: NO SPECIAL REQUESTS C ulture result: NO GROWTH 3 DAYS LEGIONELLA PNEUMOPHILA AG, URINE [[id number]] [facility] mikel: 02/08/19 2330 Order Status: Completed Specimen: [...] MEMBRANE ASSAY CULTURE, RESPIRATORY/SPUTUM/BRONCH W GRAM STAIN [[id number]] Order Status: Sent Specimen: SputumImages:@[email or web address]@Xr Chest Sngl [...] VESSEL.Priors: 01/10/2019. Technique: CT scan of the [facility] st was performed from thethoracic inlet to below the diaphragm following administra tion of intravenouscontrast. The acquisition data was reviewed in the axial, sagittal and coronalplane. 100 cc of low osmolar iodinated contrast-isovue 300 was inject edintravenously for the examination. Utilizing curb supervisor algorithm theexam ination was performed to optimize [...] CARLIN THIS IS AFINAL REPORT FROM IMAGING RESIDENTIAL SALES REPRESENTATIVE DATE OF SERVICE: 2019-01-21 22:23:43 IMAGES: 1EXAM: [...] Verde Please call Imaging On [phone].[phone]) with questions. This report was electronically signedby: [...] venous spectral Doppler studies are performed using [place] r Doppler Flowand enhanced Duplex Spectral technique. [...] Supporting Document(s ) ID Date Data Source [id number] 02/11/2019 05:21:04 PM EDT [facility] [place] [address] [place], [place] [address]HANMVKA: EVELIO CARLINMRN: [id number]: 1ACCT#: [id number] DATE: 02/08/2019 CONSULTATIONCONSULT DATE: 02/09/2019HISTORY OF PRESENT ILLNESS: T he patient is a 68-year-old severely mentallyretardedpatient who was transfer red back from the intermediate with marked lethargy,fever,cough, and unresponsivene ss. The [...] th you. ROSEMARY KNIGHTD: 02/09/2019 12:09:19 /SHOSHANA /[email or web address] #: [id number] / [id number]: Krystian Monae MD Name Value Range Interpretation Code Description Data Harriett rce(s) Supporting Document(s ) ID Date Data Source [id number] 02/11/2019 04:53:34 PM EDT [facility] Name Value Range Interpretation Description Data Sup porting Code Source(s) Document(s ) Glucose 112 MG/DL 65-110 Above high normal [facility] - Good [Mass/volume] [facility] in Blood by Hospital Automated test strip ID Date Data Source [id number] 02/11/2019 03:20:22 PM EDT [facility] ID Progress Note02/11/2019Subjective:Pat ient with MR non verbal,unable to provide history.AfebrileWbc trending down.Object britni:Vitals:Patient Vitals for the past 24 hrs: BP Temp Pulse Resp SpO2 Gddgnx0902/11 1047 137/87 98 F (36.7 C) 78 [...] venous spectral Doppler studies are performed using [place] r Doppler Flowand enhanced Duplex Spectral technique. [...] Supporting Document(s ) ID Date Data Source [id number] 02/11/2019 02:16:05 PM EDT [facility] Patient non-verbal. Spoke with patients nephroscoe Abrams @ [phone]. Sandro isdecision maker. We discussed patients condition,q [...] Supporting Document(s ) ID Date Data Source [id number] 02/11/2019 11:55:10 AM EDT [facility] Name Value Range Interpretation Description Data Sup porting Code Source(s) Document(s ) Glucose 98 MG/DL 65-110 [facility] [Mass/volume] [facility] in Blood by Hospital Automated test strip ID Date Data Source [id number] 02/11/2019 08:39:09 AM EDT [facility] Progress notePatient: Evelio Carlin Sex: male DOA: 02/08/2019Date of : 1950 Age: 68 y.o. LOS: 3 daysHPI:Evelio Carlin is a 68 y.o. male who Was admitted with sob,pneumoni a.Pt is a resident of [facility],pt with h/o COPD ,GERD,PULMEMBOLISM,PNEUMONIA,HYPERPARATHYROIDISM,MENTALRETARDATION,SCHIZOPHRENIA ,PARKINSON,Pt was brought [...] 250 mg/5 mL (5 mL) soln oral anugimhb119 mg by Per G Tube route every [...] 04:45 AMUrine AnalysisColorDate Value Re f Range Hmbeph5102/08/2019 YELLOW YEL FinalAppearanceDate Value Ref Range Stat us02/08/2019 CLEAR CLEAR FinalSpecific gravityDate Value Ref Range Nloztb6102/08/2019 1.008 1 .003 - 1.030 FinalpH (UA)Date Value Ref Range Iegdgk8602/08/2019 7.0 4.6 - 8.0 FinalPr oteinDate Value Ref Range Jcmeoy0502/08/2019 NEGATIVE NEG mg/dL FinalKetoneDate Value Ref Rang e Hwhqtg2802/08/2019 NEGATIVE NEG mg/dL FinalBilirubinDate Value Ref Range Statu 02/08/2019 NEGATIVE NEG FinalBloodDate Value Ref Range Ncprpw3502/08/2019 NEGATIVE NEG F inalUrobilinogenDate Value Ref Range Ugzkpq6102/08/2019 0.2 0.2 - 1.0 EU/dL FinalNitritesDate Va lue Ref Range Tglnws6902/08/2019 NEGATIVE NEG FinalLeukocyte EsteraseDate Value Ref Ra nge Wpmnyl0002/08/2019 NEGATIVE NEG FinalUrine MicroWBCDate Value Ref Range Bcecoi9901/21 0-3 0 - 5 /hpf FinalRBCDate Value Ref Range Dvkssf9101/21/2019 0-3 0 - 3 /hpf FinalEpi thelial cellsDate Value Ref Range Wdtxxl3101/21/2019 0-3 0 - 10 /hpf FinalBacteriaDate Value Ref Range Owjqhf4201/21/2019 NONE NONE /hpf FinalCastsDate Value Ref Range Kjgmix9201/21/2019 NONE NO NE /lpf FinalCrystals, urineDate Value Ref Range Apomdj8701/21/2019 NONE NONE /LPF FinalXR Results (most recent):Results [...] the axial, sagittal and arsalan nal plane.Utilizing curb supervisor algorithm the examination was performed to optimizeima [...] was injectedintravenously for the examinatio n. Utilizing curb supervisor algorithm theexamination was performed to optimize imaging [...] CARLIN THIS IS AFINAL REPORT FROM IMAGING RESIDENTIAL SALES REPRESENTATIVE DATE OF SERVICE: 2019-01-21 22:23:43 IMAGES: 1EXAM: [...] EST M.D. Please call Imaging On [phone].TELERAD ([phone]) with questions. This report was electronically signedby: [...] compressible, andshowed normal spontaneous flow. The c nursing home veins were not visualized due to bodyhabitus.IMPRESSION: [...] was injected intravenously for theexamination. Utiliz ing curb supervisor algorithm the examination was performed tooptimize imaging [...] QTC Calculation (Bezet) 423 ms Calculated P [place] 38 degrees Calculated R [place] 17 degrees Calculated T [place] 28 degrees Diagnosis Sinus rhythmLow voltage, precordial leadsAssessment1. SOB2. COPD AC3. RLL PN EUMONIA4. ELROY EFFUSION5. R/O SEPSIS6. HYPONATREMIA7. AC ON CHRONIC HYPOXIC RESP FAILURE8. MEN KRYSTIAN RETARDATION9. CHRONIC CWJUVCOYXOMVD35. AMS/METABOLIC RVAENLKPEUSRTK74. Lung nod ule to f/uHospital Problems Date Reviewed: 02/11/2019 Codes Class Noted POA Pressure inj ury of right heel, stage 2 (HCC) ICD-10-CM: L89.612ICD-9-CM: 707.07, 707.22 019 Yes Leg wound, right, initial encounter ICD-10-CM: S81.962PVWN-6-PZ: 894.0 02/09/2019 Yes SOB (shortness of breath) ICD-10-CM: R06.02ICD-9-CM: 786.05 02/08/2019 UnknownPlan1. BD2. IV ANTX[CEFEPIME]3. CHECK C/S4. BD5. MUCOMIST6. F/u labs7. pulm f/u8. Palliative9. D/c plann ingMy assessment, plan of care, findings, medications, side effects etc werediscussed with:[X]n ursing [ ]PT/OT[ ]respiratory therapy [ ]DrGualberto[ ]family [ ]PatientRachel Devang Annalee puente MDFormerly [facility] 20189:32 PMThe billing code submitted in association with this evaluation also includes thetime to review patient's prior records, communicate with the nursing & physician teams, obtain corroborating data, and discuss the risk and benefits of theproposed management p frantz with the patient and their family >30 minutes. Name Value Range Interpretation Code Description Data Harriett rce(s) Supporting Document(s ) ID Date Data Source [id number] 02/11/2019 07:56:53 AM EDT [facility] Bedside and Verbal shift change report g ankit banda RN (oncoming nurse) Jewel Berkowitz RN(offgoing nurse). Report give n with SBAR, Kardex, Intake/Output, MAR and RecentResults. Name Value Range Interpretation Code Description Data Harriett rce(s) Supporting Document(s ) ID Date Data Source [id number] 02/11/2019 07:37:05 AM EDT [facility] Name Value Range Interpretation Description Data Sup porting Code Source(s) Document(s ) Glucose 98 MG/DL 65-110 [facility] [Mass/volume] [facility] in Blood by Hospital Automated test strip ID Date Data Source [id number] 02/11/2019 06:49:05 AM EDT [facility] Name Value Range Interpretation Description Data Sup porting Code Source(s) Document(s ) Magnesium 1.7 mg/dL 1.6-2.6 [facility] [Mass/volume] [facility] in Serum or Hospital Plasma ID Date Data Source [id number] 02/11/2019 06:49:05 AM EDT [facility] Name Value Range Interpretation Description Data Sup porting Code Source(s) Document(s ) Sodium 135 136-145 Below low normal [facility] [Moles/volume] mmol/L [facility] in Serum or Hospital Plasma Potassium 4.1 3.5-5.1 [facility] - [facility] [Moles/volume] mmol/L [facility] in Serum or Hospital Plasma Chloride 97 98-107 Below low normal [facility] - [facility] [Moles/volume] mmol/L [facility] in Serum or Hospital Plasma Carbon 36 21-32 Above high normal [facility] - Good dioxide, total mmol/L [facility] [Moles/volume] Hospital in Serum or Plasma Anion gap in 6 mmol/L 10-20 Below low normal [facility] - Go od Serum or [facility] Plasma Hospital Glucose 96 mg/dL 74-106 [facility] [Mass/volume] [facility] in Serum or Hospital Plasma Urea nitrogen 16 mg/dL 7-18 [facility] [Mass/volume] [facility] in Serum or Hospital Plasma Creatinine 0.33 0.70-1.3 Below low normal [facility] - [facility] [Mass/volume] mg/dL 0 [facility] in Serum or Hospital Plasma Glomerular >60 [facility] - Good filtration [facility] rate/1.73 sq M Hospital predicted among blacks [Volume Rate/Area] in Serum or Plasma by Creatinine-bas ed formula (MDRD) Glomerular >60 [facility] - Good filtration [facility] rate/1.73 sq M Hospital predicted among non-blacks [Volume Rate/Area] in Serum or Plasma by Creatinine-bas ed formula (MDRD) Calcium 8.8 8.5-10.1 [facility] - [facility] [Mass/volume] mg/dL [facility] in Serum or Hospital Plasma ID Date Data Source [id number] 02/11/2019 06:39:26 AM EDT [facility] Name Value Range Interpretation Description Data Sup porting Code Source(s) Document(s ) Leukocytes 10.9 4.8-10.6 Above high normal [facility] - [#/volume] in K/uL [facility] by [facility] Automated count Hospital Erythrocytes 3.58 4.70-6.0 Below low normal [facility] - [#/volume] in M/uL 0 Good Blood by [facility] Automated count [facility] Hemoglobin 11.5 14.0-18. Below low normal [facility] - [Mass/volume] in g/dL 0 Good Blood [facility] Hematocrit 35.8 % 42.0-52. Below low normal [facility] - [Volume 0 Good Fraction] of [facility] Blood by Hospital Automated count Erythrocyte mean 100.0 FL 81.0-94. Above high normal [facility] - corpuscular 0 Good volume [Entitic [facility] volume] by Hospital Automated count Erythrocyte mean 32.1 PG 27.0-35. [facility] - corpuscular 0 Good hemoglobin [facility] [Entitic mass] Hospital by Automated count Erythrocyte mean 32.1 30.7-37. [facility] - corpuscular g/dL 3 Good hemoglobin [facility] concentration [facility] [Mass/volume] by Automated count Erythrocyte 15.6 % 11.5-14. Above high normal [facility] - distribution 0 Good width [Ratio] by [facility] Automated count Hospital Platelets 330 K/uL 130-400 [facility] - [#/volume] in Good Blood by [facility] count [facility] Platelet mean 9.3 FL 9.2-11.8 [facility] - volume [Entitic Good volume] in Blood [facility] by Automated Hospital count ID Date Data Source [id number] 02/10/2019 09:10:55 PM EDT [facility] Name Value Range Interpretation Description Data Sup porting Code Source(s) Document(s ) Glucose 89 MG/DL 65-110 [facility] [Mass/volume] [facility] in Blood by Hospital Automated test strip ID Date Data Source [id number] 02/10/2019 07:16:56 PM EDT [facility] Bedside and Verbal shift change report carol pham to Jerry RN (oncoming nurse) Niyah Israel RN(offgoing nurse). Report given with SBAR, Kardex, Intake/Output, MAR and RecentResults. Name Value Range Interpretation Code Description Data Harriett rce(s) Supporting Document(s ) ID Date Data Source [id number] 02/10/2019 04:58:09 PM EDT [facility] ID Progress Note02/10/2019Subjective:Pat ient with MR non verbal,unable to provide history.AfebrileObjective:Vitals:Patient Vitals for the past 24 hrs: BP Temp Pulse Resp MoK77902/10/19 1514 153/63 98.3 F (3 6.8 C) [...] No organomega ly.+peg+Back: No CVA tenderness.Extremities: No cyanosis,instrument and electrical technician nicolas lymphedemaPulses: 2+ and symmetric all extremities.Skin: [...] Supporting Document(s ) ID Date Data Source [id number] 02/10/2019 04:27:36 PM EDT [facility] RIGHT and LEFT LOWER EXTREMITY VENOUS [...] Supporting Document(s ) ID Date Data Source [id number] 02/10/2019 04:22:36 PM EDT [facility] LEFT UPPER EXTREMITY DOPPLERHistory: DVT .High-resolution [...] Supporting Document(s ) ID Date Data Source [id number] 02/10/2019 04:22:26 PM EDT [facility] Name Value Range Interpretation Description Data Sup porting Code Source(s) Document(s ) Glucose 94 MG/DL 65-110 [facility] [Mass/volume] [facility] in Blood by [facility] Automated test strip ID Date Data Source [id number] 02/10/2019 03:31:11 PM EDT [facility] RECOMMENDATIONS:[facility] @ 55 ml/hr, wi th [...] 54.9 kg (121 lb)Nutrition Focused Physical Assessment :[place] Muscle Wasting-ModerateOral/GI Issues:+PEGSkin:Per WOCN: Right leg woun d, limited to skin level POARight heel stage 2 pressure injury POAEdema:Peripheral Va scular (WDL): Exceptions to Within Defined LimitsLUE: 2+LLE: 1+RLE: 1+Appetite: N/A - EN% Meal Intake:N/ANo data found.Fluid Intake:Intake/Output Summary (Last 24 ho urs) at 02/10/2019 1102Last data filed at 02/10/2019 0552Gross per 24 hourIntake 3 220 mlOutput -Net 3220 mlNutrition Rx: 2034-2350 kcal; 74-89 g protein (1.25-1. 5 g/kg); 6199-4970 mlfluid (1 ml/kcal)[based on:30-35 Kcal/kg]% Estimated Energy [...] Planning:Pending Clin ical Course [x] No cultural, yarsanism, or ethnic dietary needs identified [] Cult ural, yarsanism and ethnic food preferences identified and addressed [] Participate d in care plan, discharge planning/Interdisciplinary roundsNadia Baig RD Name Value Range Interpretation Code Description Data Harriett rce(s) Supporting Document(s ) ID Date Data Source [id number] 02/10/2019 12:59:53 PM EDT [facility] PULMONARY/ CCM- Consult NotePatient: Ivelisse Carlin [...] file 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 Contrast: A [...] Supporting Document(s ) ID Date Data Source [id number] 02/10/2019 12:28:47 PM EDT [facility] Progress notePatient: Evelio Carlin Sex: male DOA: 02/08/2019Date of : 1950 Age: 68 y.o. LOS: 2 daysHPI:Evelio Carlin is a 68 y.o. male who Was admitted with sob,pneumoni a.Pt is a resident of [facility],pt with h/o COPD ,GERD,PULMEMBOLISM,PNEUMONIA,HYPERPARATHYROIDISM,MENTALRETARDATION,SCHIZOPHRENIA ,PARKINSON,Pt was brought [...] 250 mg/5 mL (5 mL) soln oral jauxvtge047 mg by Per G Tube route every [...] mL IntraVENous P RNLabs: Results:Chemistry Recent Labs 10/29/830796 1002/10/1904GL U 113* -- 115* 115*NA 136 [...] 04:45 AMUrine AnalysisCol orDate Value Ref Range Ptpudn2002/08/2019 YELLOW YEL FinalAppearanceDate Value Ref Range Stat us02/08/2019 CLEAR CLEAR FinalSpecific gravityDate Value Ref Range Ulrzpr8202/08/2019 1.008 1 .003 - 1.030 FinalpH (UA)Date Value Ref Range Gdwuxd4402/08/2019 7.0 4.6 - 8.0 FinalPr oteinDate Value Ref Range Yxmhll2502/08/2019 NEGATIVE NEG mg/dL FinalKetoneDate Value Ref Rang e Doslzt4402/08/2019 NEGATIVE NEG mg/dL FinalBilirubinDate Value Ref Range Statu 02/08/2019 NEGATIVE NEG FinalBloodDate Value Ref Range Dyupum0402/08/2019 NEGATIVE NEG F inalUrobilinogenDate Value Ref Range Qqtmkg7202/08/2019 0.2 0.2 - 1.0 EU/dL FinalNitritesDate Va lue Ref Range Hkoxwp0202/08/2019 NEGATIVE NEG FinalLeukocyte EsteraseDate Value Ref Ra nge Gebyug8802/08/2019 NEGATIVE NEG FinalUrine MicroWBCDate Value Ref Range Oqevlo3101/21 0-3 0 - 5 /hpf FinalRBCDate Value Ref Range Cpwjlg7901/21/2019 0-3 0 - 3 /hpf FinalEpi thelial cellsDate Value Ref Range Mzxvbe0401/21/2019 0-3 0 - 10 /hpf FinalBacteriaDate Value Ref Range Lbznlu5801/21/2019 NONE NONE /hpf FinalCastsDate Value Ref Range Xxxgpa8901/21/2019 NONE NO NE /lpf FinalCrystals, urineDate Value Ref Range Eewhmh5601/21/2019 NONE NONE /LPF FinalXR Results (most recent):Results [...] the axial, sagittal and arsalan nal plane.Utilizing curb supervisor algorithm the examination was performed to optimizeima [...] was injectedintravenously for the examinatio n. Utilizing curb supervisor algorithm theexamination was performed to optimize imaging [...] CARLIN THIS IS AFINAL REPORT FROM IMAGING RESIDENTIAL SALES REPRESENTATIVE DATE OF SERVICE: 2019-01-21 22:23:43 IMAGES: 1EXAM: [...] EST M.D. Please call Imaging On [phone] with questions. This report was electronically signedby: [...] was injected intravenously for theexamination. Utiliz ing curb supervisor algorithm the examination was performed tooptimize imaging [...] QTC Calculation (Bezet) 423 ms Calculated P [place] 38 degrees Calculated R [place] 17 degrees Calculated T [place] 28 degrees Diagnosis Sinus rhythmLow voltage, precordial leadsAssessment1. SOB2. COPD AC3. RLL PN EUMONIA4. ELROY EFFUSION5. R/O SEPSIS6. HYPONATREMIA7. AC ON CHRONIC HYPOXIC RESP FAILURE8. MEN KRYSTIAN RETARDATION9. CHRONIC [id number]. AMS/METABOLIC [id number]. Lung nod ule to f/uHospital Problems Date Reviewed: 02/09/2019 Codes Class Noted POA Pressure inj ury of right heel, stage 2 (HCC) ICD-10-CM: L89.612ICD-9-CM: 707.07, 707.22 019 Yes Leg wound, right, initial encounter ICD-10-CM: S81.496AAHN-7-IR: 894.0 02/09/2019 Yes SOB (shortness of breath) ICD-10-CM: R06.02ICD-9-CM: 786.05 02/08/2019 UnknownPlan1. BD2. IV ANTX[CEFEPIME]3. CHECK C/S4. BD5. MUCOMIST6. F/u labs7. pulm f/uMy assessment, plan of ca re, findings, medications, side effects etc werediscussed with:[X]nursing [ ]PT/OT[ ]respiratory therapy [ ][ ]family [ ]PatientRachel Devang MD [facility]:32 PMThe billing code submitted in [...] Supporting Document(s ) ID Date Data Source [id number] 02/10/2019 12:03:56 PM EDT [facility] Problem: Pressure Injury - Risk ofGoal: [...] Supporting Document(s ) ID Date Data Source [id number] 02/10/2019 11:08:58 AM EDT [facility] Name Value Range Interpretation Description Data Sup porting Code Source(s) Document(s ) Glucose 114 MG/DL 65-110 Above high normal [facility] - Good [Mass/volume] Zoroastrianism in Blood by [facility] Automated test strip ID Date Data Source [id number] 02/10/2019 07:34:32 AM EDT [facility] Bedside and Verbal shift change report carol Baker RN (oncoming nurse) Bev RN (offgoing nurse). Report included the fo llowing information SBAR, ORSummary, Procedure Summary and Intake/Output. Name Value Range Interpretation Code Description Data [facility] rce(s) Supporting Document(s ) ID Date Data Source [id number] 02/10/2019 07:45:42 AM EDT [facility] Name Value Range Interpretation Description Data Sup porting Code Source(s) Document(s ) Glucose 106 MG/DL 65-110 [facility] - Good [Mass/volume] Zoroastrianism in Blood by [facility] Automated test strip ID Date Data Source [id number] 02/10/2019 05:00:46 AM EDT [facility] Name Value Range Interpretation Description Data Sup porting Code Source(s) Document(s ) Sodium 136 136-145 [facility] - [Moles/volume] in mmol/L [facility] Serum or Plasma [facility] Potassium 4.2 3.5-5.1 [facility] - [Moles/volume] in mmol/L [facility] Serum or [facility] Chloride 100 98-107 [facility] - [Moles/volume] in mmol/L [facility] Serum or [facility] Carbon dioxide, 35 21-32 Above high [facility] - total mmol/L normal Good [Moles/volume] in Zoroastrianism Serum or Plasma [facility] Anion gap in Serum 5 10-20 Below low normal [facility] - or Plasma mmol/L [facility] Glucose 113 74-106 Above high [facility] - [Mass/volume] in mg/dL normal Good Serum or Plasma [facility] Urea nitrogen 19 7-18 Above high [facility] - [Mass/volume] in mg/dL normal Good Serum or Plasma [facility] Creatinine 0.38 0.70-1. Below low normal [facility] - [Mass/volume] in mg/dL 30 Good Serum or Plasma [facility] Glomerular >60 [facility] - filtration Good rate/1.73 sq M Zoroastrianism predicted among Hospital blacks [Volume Rate/Area] in Serum or Plasma by Creatinine-based formula (MDRD) Glomerular >60 [facility] - filtration Good rate/1.73 sq M Zoroastrianism predicted among Hospital non-blacks [Volume Rate/Area] in Serum or Plasma by Creatinine-based formula (MDRD) Calcium 8.7 8.5-10. [facility] - [Mass/volume] in mg/dL 1 [facility] Serum or Plasma [facility] Bilirubin.total 0.2 0.2-1.0 [facility] - [Mass/volume] in mg/dL Good Serum or Plasma [facility] Alanine 7 U/L 13-61 Below low normal [facility] - aminotransferase Good [Enzymatic Zoroastrianism activity/volume] in Hospital Serum or Plasma Aspartate 13 U/L 15-37 Below low normal [facility] - aminotransferase Good [Enzymatic Zoroastrianism activity/volume] in Hospital Serum or Plasma by With P-5'-P Alkaline 71 U/L 45-117 [facility] - phosphatase Good [Enzymatic Zoroastrianism activity/volume] in Hospital Serum or Plasma Protein 6.5 6.4-8.2 [facility] - [Mass/volume] in g/dL Good Serum or Plasma [facility] Albumin 1.9 3.5-4.7 Below low normal [facility] - [Mass/volume] in g/dL Good Serum or Plasma by Zoroastrianism Bromocresol [facility] (BCP) dye binding method Globulin 4.6 1.7-4.7 [facility] - [Mass/volume] in g/dL Good Serum by [facility] Albumin/Globulin 0.4 0.7-2.8 Below low normal [facility] - [Mass Ratio] in Good Serum or Plasma [facility] ID Date Data Source [id number] 02/10/2019 05:00:46 AM EDT [facility] - [facility] Name Value Range Interpretation Description Data Sup porting Code Source(s) Document(s ) Magnesium 1.9 mg/dL 1.6-2.6 [facility] - [facility] [Mass/volume] Zoroastrianism in Serum or Hospital Plasma ID Date Data Source [id number] 02/10/2019 04:49:04 AM EDT [facility] - [facility] Name Value Range Interpretation Description Data Sup porting Code Source(s) Document(s ) Leukocytes 8.8 K/uL 4.8-10.6 [facility] - [#/volume] in Good Blood by Zoroastrianism Automated count [facility] Erythrocytes 3.34 4.70-6.0 Below low normal [facility] - [#/volume] in M/uL 0 Good Blood by Zoroastrianism Automated count [facility] Hemoglobin 10.7 14.0-18. Below low normal [facility] - [Mass/volume] in g/dL 0 Good Blood [facility] Hematocrit 34.4 % 42.0-52. Below low normal [facility] - [Volume 0 Good Fraction] of Zoroastrianism Blood by Hospital Automated count Erythrocyte mean 103.0 FL 81.0-94. Above high normal [facility] - corpuscular 0 Good volume [Entitic Zoroastrianism volume] by Hospital Automated count Erythrocyte mean 32.0 PG 27.0-35. [facility] - corpuscular 0 Good hemoglobin Zoroastrianism [Entitic mass] [facility] by Automated count Erythrocyte mean 31.1 30.7-37. [facility] - corpuscular g/dL 3 Good hemoglobin Zoroastrianism concentration [facility] [Mass/volume] by Automated count Erythrocyte 15.6 % 11.5-14. Above high normal [facility] - distribution 0 Good width [Ratio] by Zoroastrianism Automated count [facility] Platelets 287 K/uL 130-400 [facility] - [#/volume] in Good Blood by Zoroastrianism Automated count [facility] Platelet mean 9.0 FL 9.2-11.8 Below low normal [facility] - volume [Entitic Good volume] in [facility] by Automated Hospital count Segmented 87 % 48.0-72. Above high normal [facility] - neutrophils/100 [address] Good leukocytes in [facility] Lymphocytes/100 9 % 18.0-40. Below low normal [facility] - leukocytes in 0 [facility] Monocytes/100 4 % 2.0-12.0 [facility] - leukocytes in [facility] Eosinophils/100 0 % 0.0-7.0 [facility] - leukocytes in [facility] Basophils/100 0 % 0.0-3.0 [facility] - leukocytes in [facility] Segmented 7.6 K/UL 1.5-6.6 Above high normal [facility] - neutrophils Good [#/volume] in [facility] Lymphocytes 0.8 K/UL 1.5-3.5 Below low normal [facility] - [#/volume] in [facility] Monocytes 0.3 K/UL 0.0-1.0 [facility] - [#/volume] in [facility] Eosinophils 0.0 K/UL 0.0-0.7 [facility] - [#/volume] in [facility] Basophils 0.0 K/UL 0.0-0.1 [facility] - [#/volume] in [facility] Differential [facility] - cell count Good method - [facility] Immature 0 % 0.0-2.0 [facility] - granulocytes/100 Good leukocytes in [facility] by Hospital Automated count ID Date Data Source [id number] 02/09/2019 08:53:27 PM EDT [facility] - [facility] Name Value Range Interpretation Description Data Sup porting Code Source(s) Document(s ) Glucose 110 MG/DL 65-110 [facility] - [facility] [Mass/volume] Zoroastrianism in Blood by [facility] Automated test strip ID Date Data Source [id number] 02/09/2019 07:04:40 PM EDT [facility] - [facility] Bedside and Verbal shift change report carol Conner (oncoming nurse) by dara (offgoing nurse). Report carol pham with SBAR, Intake/Output, MAR, RecentResults and Med Rec Status. Name Value Range Interpretation Code Description Data Harriett rce(s) Supporting Document(s ) ID Date Data Source [id number] 02/09/2019 06:37:35 PM EDT [facility] Infectious Disease ConsultToday's Date: 02/09/2019Admit Date: 02/08/2019Subjective:Date of Consultatio n: February 09, 2019Referring Physician: Lisy Gonzalez is a 68 y.o. male who is being seen for pneumonia.Patient with historyof mental retardation,aspiration pneumonia,dysphagia,COPD,s/p pegplacement,schizophrenia,parkinson's d isease was transferred from the [facility] for respiratory distress, low oxygen sat uration and increasinglethargy.Patient is non verbal,unable to provide history.History obtained fromchart review.Patient Active Problem ListDiagnosis Code Paraesophage al hiatal hernia K44.9 COPD (chronic obstructive pulmonary disease) ([facility]) J44 .9 Acute respiratory distress R06.03 Pneumonia J18.9 COPD exacerbation ([facility]) J44.1 Sepsis due to undetermined organism ([facility]) A41.9 Generalized anxiety disorde r F41.1 Acute respiratory failure with hypoxia ([facility]) J96.01 Pneumonia involvin g right lung J18.9 Hyponatremia E87.1 SOB (shortness of breath) R06.02 Pressure i njury of right heel, stage 2 ([facility]) L89.612 Leg wound, right, initial encounter S81. 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 No pertinent family history.Social Histo [...] 250 mg/5 mL (5 mL) soln oral fsbmmetj464 mg by Per G Tube r oute [...] O2 O2 FLOW 4 L/min Performed by [id number], POC Collection Time: 02/09/19 4:46 PMResult Value [...] in the axial, sagittal and coronal plane.Utilizing curb supervisor algorithm t he examination was performed to [...] THIS IS AFINAL REPORT FROM KATJA BERGER RESIDENTIAL SALES REPRESENTATIVE DATE OF SERVICE: 2018-12-18 01:22:40 IMAGES:555 EXAM: [...] 12/18/2018 04:49 GINA Verde Please call Imaging Canal Structure Operator [phone] with questions. This report was electronically signed [...] coronal, and 3-Dreconstructed images obtained on an [employer] workstation are submitted. Noprior studies are available [...] was injectedintravenously for the examinatio n. Utilizing curb supervisor algorithm theexamination was performed to optimize imaging [...] jocelyn riley on the table in the rniei-tsur-hdiy decubitus position.CT scanning was perfo rmed location [...] location.Attempts were made to pass an 8 [place] pigtail catheter thr ough this location.However, patient [...] CARLIN THIS IS AFINAL REPORT FROM IMAGING RESIDENTIAL SALES REPRESENTATIVE DATE OF SERVICE: 2019-01-21 22:23:43 IMAGES: 1EXAM: [...] M.D. Please call Imaging On [phone]) with questions. This report was electronically signedby: [...] Supporting Document(s ) ID Date Data Source [id number] 02/09/2019 05:15:31 PM EDT [facility] - [facility] Name Value Range Interpretation Description Data Sup porting Code Source(s) Document(s ) Glucose 120 MG/DL 65-110 Above high normal [facility] [Mass/volume] Zoroastrianism in Blood by Hospital Automated test strip ID Date Data Source [id number] 02/09/2019 04:39:14 PM EDT [facility] History and PhysicalPatient: Evelio buck Sex: male DOA: 02/08/2019Date of : 1950 Age: 68 y.o. LOS: 1 dayHPI:Evelio Carlin is a 68 y.o. male who Was adm itted with sob,pneumonia.Pt is a resident of [facility],pt with h/o COPD ,GERD,PULMEMBOLISM,PNEUMONIA,HYPERPARATHYROIDISM,MENTALRETARDATION,SCHIZOPHRENIA ,PARKINSON,Pt was brought [...] mg/ 5 mL (5 mL) soln oral unmumlos254 mg by Per G Tube route every [...] route two (2) times aday. 12/30/18 Yes Miil Hills DOalbuterol- ipratropium (DUO-NEB) 2.5 mg-0.5 mg/3 ml nebu 3 mL by Nebuliza tionroute every six (6) hours. Every 6 hours while awake 12/30/18 Yes Mili Hills DObud esonide (PULMICORT) 0.5 mg/2 mL nbsp 2 mL by Nebulization route two (2) timesa day. Yes Mili Hills DOacetaminophen (TYLENOL) 32MG/ML soln solution Take 20.3 mL by pa ut every four(4) hours as needed for Pain or Fever. 01/24/19 Mili Hills DOinfluenza vaccine 2019-20, 65 yrs+,,PF, (FLUZONE HIGH-DOSE) syrg injection 0.5mL by IntraMUSCular route P RIOR TO DISCHARGE. 01/24/19 Mili Hills DObacitracin 500 unit/gram ointment Appl y 1 [...] 02/09/2019 04:45 AMUrine AnalysisColorDate Value Ref Range Gcnnfp0402/08/2019 YELLOW YEL FinalAppearanceDate Value Ref Range Rffxhi3502/08/2019 CLEAR CLEAR FinalSpec ific gravityDate Value Ref Range Gwrgcm3302/08/2019 1.008 1.003 - 1.030 FinalpH (UA)Date V alue Ref Range Txndyh3202/08/2019 7.0 4.6 - 8.0 FinalProteinDate Value Ref Range Status1 NEGATIVE NEG mg/dL FinalKetoneDate Value Ref Range Tgxide2302/08/2019 NEGATIVE NEG mg/dL FinalBilirubinDate Value Ref Range Rlugvm3702/08/2019 NEGATIVE NEG FinalBl oodDate Value Ref Range Pivkoo6002/08/2019 NEGATIVE NEG FinalUrobilinogenDate Value Ref Range Whkcyl8502/08/2019 0.2 0.2 - 1.0 EU/dL FinalNitritesDate Value Ref Range Wxldfh6402/08/2019 NEGATIV E NEG FinalLeukocyte EsteraseDate Value Ref Range Ysjymd9402/08/2019 NEGATIVE NEG FinalUr ine MicroWBCDate Value Ref Range Fdvpdc9101/21/2019 0-3 0 - 5 /hpf FinalRBCDate Value Ref Range Gyftyr2101/21/2019 0-3 0 - 3 /hpf FinalEpithelial cellsDate Value Ref Range Vkvaik96/09/20 19 0-3 0 - 10 /hpf FinalBacteriaDate Value Ref Range Gkasgj1101/21/2019 NONE NONE /hpf FinalCas tsDate Value Ref Range Atbvty3501/21/2019 NONE NONE /lpf FinalCrystals, urineDate Value Ref Range Miemdl1001/21/2019 NONE NONE /LPF FinalXR Results (most recent):Results [...] the axial, sagittal and coronal plane.Utiliz ing curb supervisor algorithm the examination was performed to optimizeimaging [...] was injectedintravenously for the examinatio n. Utilizing curb supervisor algorithm theexamination was performed to optimize imaging [...] CARLIN THIS IS AFINAL REPORT FROM IMAGING RESIDENTIAL SALES REPRESENTATIVE DATE OF SERVICE: 2019-01-21 22:23:43 IMAGES: 1EXAM: [...] EST MLarry Please call Imaging On [phone] with questions. This report was electronically signedby: [...] was injected intravenously for theexamination. Utiliz ing curb supervisor algorithm the examination was performed tooptimize imaging [...] QTC Calculation (Bezet) 423 ms Calculated P [place] 38 degrees Calculated R [place] 17 degrees Calculated T [place] 28 degrees Diagnosis Sinus rhythmLow voltage, precordial leadsAssessment1. SOB2. COPD AC3. RLL PN EUMONIA4. ELROY EFFUSION5. R/O SEPSIS6. HYPONATREMIA7. AC ON CHRONIC HYPOXIC RESP FAILURE8. MEN KRYSTIAN RETARDATION9. CHRONIC [id number]. AMS/METABOLIC [id number]. Lung nod ule to f/ospital Problems Date [...] Supporting Document(s ) ID Date Data Source [id number] 02/09/2019 04:01:44 PM EDT [facility] Consult NotePatient: Evelio Carlin Sex: male [...] was injectedintravenously for the examinatio n. Utilizing curb supervisor algorithm theexamination was performed to optimize imaging [...] CARLIN THIS IS AFINAL REPORT FROM IMAGING RESIDENTIAL SALES REPRESENTATIVE DATE OF SERVICE: 2019-01-21 22:23:43 IMAGES: 1EXAM: [...] Verde Please call Imaging On [phone] ([phone]) with questions. This report was electronically signedby: [...] as well asspectral analysis and ultrasound exami [facility] was performed of the lowerextremities bilaterally. FINDINGS: [...] Supporting Document(s ) ID Date Data Source [id number] 02/09/2019 02:39:45 PM EDT [facility] AP portable film of the chest [...] Supporting Document(s ) ID Date Data Source [id number] 02/09/2019 02:14:35 PM EDT [facility] Name Value Range Interpretation Description Data Sup porting Code Source(s) Document(s ) pH of Arterial 7.42 7.35-7.4 [facility] blood 5 [facility] Carbon dioxide 55 mmHg 32-48 Above high normal [facility] Good [Partial Zoroastrianism pressure] in Hospital Arterial blood Oxygen 59 mmHg 83-108 Below low normal [facility] - Good [Partial Zoroastrianism pressure] in Hospital Arterial blood Carbon 37 19-24 Above high normal [facility] dioxide, total mmol/L Zoroastrianism [Moles/volume] [facility] in Arterial blood Bicarbonate 36 21-28 Above high normal [facility] - Go od [Moles/volume] mmol/L [facility] in Arterial Hospital blood Oxygen 93 % 94-98 Below low normal [facility] Good saturation in Zoroastrianism Blood [facility] Base excess in 9.3 0-3 Above high normal [facility] - Good Arterial blood mmol/L Zoroastrianism by calculation Hospital Body site [facility] Arterial [facility] Good patency Wrist Zoroastrianism artery --pre Hospital arterial puncture NASAL O24 Service comment [id number] [facility] ID Date Data Source [id number] 02/09/2019 12:14:25 PM EDT [facility] PULMONARY CONSULT DICTATED # [id number] Name Value Range Interpretation Code Description Data Harriett rce(s) Supporting Document(s ) ID Date Data Source [id number] 02/09/2019 11:26:31 AM EDT [facility] Name Value Range Interpretation Description Data Sup porting Code Source(s) Document(s ) Glucose 137 MG/DL 65-110 Above high normal [facility] [Mass/volume] Zoroastrianism in Blood [facility] Automated test strip ID Date Data Source [id number] 02/09/2019 10:49:34 AM EDT [facility] Care Management InterventionsPCP Verifie d by CM: (Dr. Hills)Palliative Care Criteria Met (RRAT>21 & CHF Dx)?: NoTransition of Care Consult (CM Consult): Discharge PlanningMyChart Signup: NoDischarge Dura ble Medical Equipment: NoPhysical Therapy Consult: NoOccupational Therapy Consult: NoSpeech Therapy Consult: NoCurrent Support Network: Nursing Facility(LTR at [facility])Confirm Follow Up Transport: Other (see comment)(ambulance)Plan discussed with P t/Family/Caregiver: YesFreedom of Choice Offered: YesVeteran Resource Information Provided?: RefusedDischarge LocationDischarge Placement: Skilled [facility] facility(LTR at [facility])CASE MANAGEMENT PSYCHOSOCIAL ASSESSMENTReyes Carlin Admission Date: 02/08/2019MRN: [id number] of : 1Current date: 02/09/2019DISCHARGE PLAN: Pt admitted fr [facility]. Spoke with [facility] Dain who confirmed pt is a LTR at [facility] and is able to return whenmedically stable. [facility] ED.Call placed to pt's cousin Joyce [phone] whom makes all medical deci sionsand message [...] monthsPCP: Mili Escudero DOAdmitting Provider: Chay Palma MDSENTARA [facility] SYST EM INCHOMECARE INVESTIGATION LIEUTENANT: NAPayor: [place] / [place] [employer] PART A AND B/ Product Type: Medicare /Secondary Payor: @[employer] (now [employer])INSGROUPNAME@ B (shortness of breath) [R06.02]Patient Active Problem ListDiagnosis Code Parae sophageal hiatal hernia K44.9 COPD (chronic obstructive pulmonary disease) ([facility]) J44 .9 Acute respiratory distress R06.03 Pneumonia J18.9 COPD exacerbation ([facility]) J44.1 Sepsis due to undetermined organism ([facility]) A41.9 Generalized anxiety disorde r F41.1 Acute respiratory failure with hypoxia ([facility]) J96.01 Pneumonia involvin g right lung [...] solving and planning: Notes:Adeq uate coping skills: Notes:Confucianist/Cultural barriers: Notes:If unable to assess or n ot applicable: Notes:Suicide Assessment:Primary Diagnosis or Primary Complaint of an Emotional Behavior Disorder: NoPatient is Currently Experiencing Depr ession: NoSuicidal Ideation/Attempts: NoHomicidal Ideation/Attempts: NoAlcohol /Drug Intoxication: NoHallucinations/Delusions: NoPending, A ctive, or Temporary Correction Orders: NoAggressive/Inappropriate Behavior: NoR eadmit Risk:Support Systems: Family member(s)Relationship with Primary Physi chaya Group: Seen at least one time within thepast 6 monthsRRAT Total Score: 19Adva nced Care Planning:Confirm Advance Directive: NoneDiscussed with the patient and all q uestions fully answered.3 Name Value Range Interpretation Code Description Data Harriett rce(s) Supporting Document(s ) ID Date Data Source [id number] 02/09/2019 08:56:00 AM EDT [facility] Name Value Range Interpretation Description Data Sup porting Code Source(s) Document(s ) Glucose 128 MG/DL 65-110 Above high normal [facility] [Mass/volume] Zoroastrianism in Blood by Hospital Automated test strip ID Date Data Source [id number] 02/09/2019 07:39:00 AM EDT [facility] Bedside and Verbal shift change report carol Ruiz RN (oncoming nurse) Bev PITTS (offgoing nurse). Report included the fo adriennewing information Kardex,Procedure Summary and MAR. Name Value Range Interpretation Code Description Data Harriett rce(s) Supporting Document(s ) ID Date Data Source [id number] 02/11/2019 08:06:09 PM EDT [facility] Name Value Range Interpretation Description Data Sup porting Code Source(s) Document(s ) Valproate 33.8 6.0-22.0 Above high normal [facility] - Good Free ug/mL Zoroastrianism [Mass/volume] Hospital in Serum or Plasma (NOTE) Det ection Limit = 0.5Patient drug level exceeds published reference range. Evaluateclin ically for signs of potential toxicity.Performed At: [facility] [id number] [place], [place] [id number] Sanjai MD Ph:[phone] ID Date Data Source [id number] 02/09/2019 06:58:15 AM EDT [facility] Name Value Range Interpretation Description Data Sup porting Code Source(s) Document(s ) Hemoglobin 4.4 % 4.2-6.3 [facility] - Good A1c/Hemoglobin Zoroastrianism .total in Hospital Blood ID Date Data Source [id number] 02/09/2019 06:41:44 AM EDT [facility] Name Value Range Interpretation Description Data Sup porting Code Source(s) Document(s ) Leukocytes 14.5 4.8-10.6 Above high normal [facility] - [#/volume] in K/uL Good Blood by Zoroastrianism Automated count [facility] Erythrocytes 3.25 4.70-6.0 Below low normal [facility] - [#/volume] in M/uL 0 Good Blood by Zoroastrianism Automated count [facility] Hemoglobin 10.4 14.0-18. Below low normal [facility] - [Mass/volume] in g/dL 0 Good Blood [facility] Hematocrit 33.3 % 42.0-52. Below low normal [facility] - [Volume 0 Good Fraction] of Zoroastrianism Blood by Hospital Automated count Erythrocyte mean 102.5 FL 81.0-94. Above high normal [facility] - corpuscular 0 Good volume [Entitic Zoroastrianism volume] by Hospital Automated count Erythrocyte mean 32.0 PG 27.0-35. [facility] - corpuscular 0 Good hemoglobin [facility]oroastrianism [Entitic mass] Hospital by Automated count Erythrocyte mean 31.2 30.7-37. [facility] - corpuscular g/dL 3 Good hemoglobin Zoroastrianism concentration [facility] [Mass/volume] by Automated count Erythrocyte 15.9 % 11.5-14. Above high normal [facility] - distribution 0 Good width [Ratio] by Zoroastrianism Automated count [facility] Platelets 282 K/uL 130-400 [facility] - [#/volume] in Good Blood by Zoroastrianism Automated count [facility] Platelet mean 8.9 FL 9.2-11.8 Below low normal [facility] - volume [Entitic Good volume] in Blood [facility] by Automated Hospital count ID Date Data Source [id number] 02/09/2019 06:25:18 AM EDT [facility] Name Value Range Interpretation Description Data Sup porting Code Source(s) Document(s ) Urate 3.8 mg/dL 3.5-7.2 [facility] - Good [Mass/volu [facility]] in Hospital Serum or Plasma ID Date Data Source [id number] 02/09/2019 06:25:18 AM EDT [facility] Value Range Interpretation Description Data Sup porting Code Source(s) Document(s ) Phosphate 2.8 mg/dL 2.5-4.9 [facility] - Good [Mass/volume] Zoroastrianism in Serum or Hospital Plasma ID Date Data Source [id number] 02/09/2019 06:25:18 AM EDT [facility] Name Value Range Interpretation Description Data Sup porting Code Source(s) Document(s ) Cholesterol 125 <200 [facility] - Good [Mass/volume] mg/dL Zoroastrianism in Serum or Hospital Plasma Triglyceride 55 mg/dL <150 [facility] - Good [Mass/volume] Zoroastrianism in Serum or Hospital Plasma Cholesterol in 62 mg/dL >40 [facility] - Good HDL [facility] [Mass/volume] Hospital in Serum or Plasma Cholesterol in 52 MG/DL <100 [facility] - Good LDL [facility] [Mass/volume] Hospital in Serum or Plasma by calculation Cholesterol in 11 MG/DL <38 [facility] - Good VLDL [facility]rianism [Mass/volume] Hospital in Serum or Plasma by calculation Cholesterol in 2.0 0.0-4.5 [facility] - Good HDL/Cholesterol Zoroastrianism .total [Mass Hospital Ratio] in Serum or Plasma ID Date Data Source [id number] 02/09/2019 06:25:18 AM EDT [facility] Value Range Interpretation Description Data Sup porting Code Source(s) Document(s ) NOLOINC 1.100 0.360-3.7 [facility] - Good uIU/mL [address] [place] [address] This assay result should be used in conj unction with information available from clinical evaluation and other diagnostic procedures. 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: [employer] ID Date Data Source [id number] 02/09/2019 06:25:18 AM EDT [facility] Name Value Range Interpretation Description Data Sup porting Code Source(s) Document(s ) Magnesium 1.6 mg/dL 1.6-2.6 [facility] - Good [Mass/volume] Zoroastrianism in Serum or Hospital Plasma ID Date Data Source [id number] 02/09/2019 06:25:18 AM EDT [facility] Name Value Range Interpretation Description Data Sup porting Code Source(s) Document(s ) Sodium 136 136-145 [facility] - Good [Moles/volume] mmol/L Zoroastrianism in Serum or Hospital Plasma Potassium 4.6 3.5-5.1 [facility] - Good [Moles/volume] mmol/L Zoroastrianism in Serum or Hospital Plasma Chloride 99 98-107 [facility] - Good [Moles/volume] mmol/L [facility]astrianism in Serum or Hospital Plasma Carbon 32 21-32 [facility] - Good dioxide, total mmol/L [facility]rianism [Moles/volume] Hospital in Serum or Plasma Anion gap in 10 10-20 [facility] - Good Serum or mmol/L [facility]rianism Plasma Hospital Glucose 115 74-106 Above high normal [facility] - Good [Mass/volume] mg/dL Zoroastrianism in Serum or Hospital Plasma Urea nitrogen 12 mg/dL 7-18 [facility] - Good [Mass/volume] Zoroastrianism in Serum or Hospital Plasma Creatinine 0.34 0.70-1.3 Below low normal [facility] - Good [Mass/volume] mg/dL 0 Zoroastrianism in Serum or Hospital Plasma Glomerular >60 [facility] - Good filtration Zoroastrianism rate/1.73 sq M Hospital predicted among blacks [Volume Rate/Area] in Serum or Plasma by Creatinine-bas ed formula (MDRD) Glomerular >60 [facility] - Good filtration Zoroastrianism rate/1.73 sq M Hospital predicted among non-blacks [Volume Rate/Area] in Serum or Plasma by Creatinine-bas ed formula (MDRD) Calcium 8.9 8.5-10.1 [facility] - Good [Mass/volume] mg/dL Zoroastrianism in Serum or Hospital Plasma ID Date Data Source [id number] 02/09/2019 06:25:18 AM EDT [facility] Name Value Range Interpretation Description Data Sup porting Code Source(s) Document(s ) Bilirubin.total 0.2 0.2-1.0 [facility] - [Mass/volume] in mg/dL Good Serum or Plasma [facility] Bilirubin.direct 0-0.2 [facility] - [Mass/volume] in Good Serum or Plasma [facility] Alanine 9 U/L 13-61 Below low normal [facility] - aminotransferase Good [Enzymatic Zoroastrianism activity/volume] in Hospital Serum or Plasma Aspartate 13 U/L 15-37 Below low normal [facility] - aminotransferase Good [Enzymatic Zoroastrianism activity/volume] in Hospital Serum or Plasma by With P-5'-P Alkaline 65 U/L 45-117 [facility] - phosphatase Good [Enzymatic Zoroastrianism activity/volume] in Hospital Serum or Plasma Protein 6.0 6.4-8.2 Below low normal [facility] - [Mass/volume] in g/dL Good Serum or Plasma [facility] Albumin 1.8 3.5-4.7 Below low normal [facility] - [Mass/volume] in g/dL Good Serum or Plasma by Zoroastrianism Bromocresol [facility] (BCP) dye binding method Globulin 4.2 1.7-4.7 [facility] - [Mass/volume] in g/dL Good Serum by [facility] Albumin/Globulin 0.4 0.7-2.8 Below low normal [facility] - [Mass Ratio] in Good Serum or Plasma [facility] ID Date Data Source [id number] 02/09/2019 03:20:15 AM EDT [facility] Problem: Pressure Injury - Risk [...] Supporting Document(s ) ID Date Data Source [id number] 02/08/2019 11:42:39 PM EDT [facility] Urine sample sent to the lab Name Value Range Interpretation Code Description Data Harriett rce(s) Supporting Document(s ) ID Date Data Source [id number] 02/09/2019 10:34:58 AM EDT [facility] Name Value Range Interpretation Description Data Sup porting Code Source(s) Document(s ) Legionella [facility] pneumophila Ag Zoroastrianism [Presence] in Hospital Urine by Immunoassay PRESUMPTIVE NEGATIVE forL.pneumophila Se rogroup 1Antigen in urine,suggestingno recent or current infection.Infection due to Le gionellacannot be ruled out since otherserogroups and species may causedis ease,antigen may not bepresent in urine in earlyinfection, and the level ofantigen present in the urinemay be below the detectionlimit of the test. Service comment [facility] ID Date Data Source [id number] 02/08/2019 10:35:35 PM EDT [facility] Value Range Interpretation Description Data Sup porting Code Source(s) Document(s ) Glucose 108 MG/DL 65-110 [facility] [Mass/volume] Zoroastrianism in Blood by [facility] Automated test strip ID Date Data Source [id number] 02/08/2019 10:21:01 PM EDT [facility] Pt received from ER, RN accompanied. Fuentes rt,non-verbal, responses to voice. NSRon tele HR is in 80s. No visual signs of pain, d iscomfort noted. All needed careprovided. Continue monitoring. Name Value Range Interpretation Code Description Data Harriett rce(s) Supporting Document(s ) ID Date Data Source [id number] 02/08/2019 10:59:45 PM EDT [facility] Name Value Range Interpretation Description Data Sup porting Code Source(s) Document(s ) Lactate 1.7 0.4-2.0 [facility] [Moles/volu MMOL/L [facility]] in Hospital Serum or Plasma ID Date Data Source [id number] 02/08/2019 09:45:22 PM EDT [facility] [id number] [facility] [employer] [facility] [address] [facility] [address] [phone] GabeEvelio (Male) [id number] ES I 2 ED Dispo:ADMIT Chief Complaint: Shortness of Breath Diagnosis: Pneumonia of right lower lobe due to infectious organism (HCC) [] Current Providers: Attending: Eloisa Kim; Justin Palma Consulting Provider: Justin Garcia; Sabrina Dudley; Cindi Frankel; Mireya Lopez Physician: Justin Palma Primary Nurse: Rain Wanger M Tech: ERICKA Merino: [phone] [employer] [phone] - Bshsi Ed Medva MrnMRN: [id number] [employer] [id number] - Bs hsi Ed Medva Age SexDOB 1950 AGE 68 SEX Male Primary Care Provider: Mili Hills DO Phone: [phone]: (No Known Allergies)Date Reviewed: 02/08/2019Reviewed by: Ra lucinda Palma MD - Review CompleteED Provider Notes: All notesHNO ID: [id number]: Darryl Kim MDServi ce: -Author Type: PhysicianFiled: 02/08/192038Note Text:The history is provided by the patient.4:40 PM: Evelio Carlin is a 68 y.o. male with h/o oxygen dependency,schizophrenia, COPD and pneumonia who presents to the E D from [facility] via EMS for shortness of breath this afternoon. It is reported thatDr. Lopez ([facility]) instructed for the patient to [...] Gets alexuseth er: Not on file Attends yarsanism service: Not on file Active member of [...] TC Calculation (Bezet) 423 ms Calculated P [place] 38 degrees Calculated R [place] 17 degrees Calculated T [place] 28 deg phillip Diagnosis Sinus rhythmLow voltage, [...] Kim MDRadiology:CXR Results (Last 48 hours) 02/08/19 4017 XR CHEST PORT Final result Impression: IMPRESSION: [...] withschizophrenia and chronic oxygen depedemcy from a intermediate wit hshortness of breath today. Given Nebulizer [...] route two (2)times a day. 12/30/18 Mili iHlls DObacitracin 500 unit/gram ointment Apply 1 Packet [...] d thediagnostic studies, unless otherwise noted.ED Orders [id number] URINALYSIS W/ RFLX MICROSCOPIC [# [id number]] Priority: STAT Class: ER Collect Standing Order Information Remaining Occurrences:0 /1 Interval:ONE TIME Last released:02/08/2019 Released orders: Karla Feb 08, 2019 4:45 PM by: KYLAH WAGNER [id number] URINALYSIS W/ RFLX MICROSCOPIC [#[id number]] Priority: STAT Cl ass: ER Collect Specimen Source: Urine Specimen Collected: 02/08/2019 4:59 PM Resulting Agency: [facility] Test ID: UA Released on: 02/08/2019 4:45 PM [id number] LACTIC ACID [#[id number]] Priority: STAT Class: ER Collect Standing Order Information Remaining Occurre nces:0/2 Interval:EVERY 4 HRS Last released:02/08/2019 Released orders: [place]la Feb 08, 2019 8:05 PM by: DARRYL KIM Feb 08, 2019 4:46 PM by: DARRYL KIM [id number] METABOLIC PA SAADIA, COMPREHENSIVE [#[id number]] Priority: STAT Class: ER Collect Standing Order Information Remaining Occurrences:0/1 Interval:ONE TIME Last released:02/08/2019 Released orders : Karla Feb 08, 2019 4:46 PM by: DARRYL KIM [id number] CBC WITH AUTOMATED DIFF [#[id number]] Priority: STAT Class: ER Collect Standing Order Information Remaining Occurrences:0 /1 Interval:ONE TIME Last released:02/08/2019 Released orders: Karla Feb 08, 2019 4:46 PM by: DARRYL KIM [id number] LACTIC ACID [#[id number]] Priority: STAT C lass: ER Collect Specimen Source: Plasma Specimen Collected: 02/08/2019 5:00 PM Resulting Agency: [facility] Test ID: LAC Released on: 02/08/2019 4:46 PM [id number] METABOLIC PANEL, COMPREHENSIVE [#[id number]] Priority: STAT Class: ER Collect Specimen Source: Plasma Specim en Collected: 02/08/2019 5:00 PM Resulting Agency: [facility] Test ID: MPL Rel eased on: 02/08/2019 4:46 PM [id number] CBC WITH AUTOMATED DIFF [#[id number]] Priority: STAT Cl ass: ER Collect Specimen Source: Whole Blood Specimen Collected: 02/08/2019 5:00 PM Resulting Agency: [facility] Test ID: CBCA Released on: 02/08/2019 4:46 PM [id number] CBC W/O DI FF [#[id number]] Priority: Routine Class: ER Collect Standing Order Information Remaining Occurrences: Interval:DAILY [id number] HEMOGLOBIN A1C W/O EAG [# [id number]] Priority: Routine Class: ER Collect Standing Order Information Remaining Occurrences: Interval:TOMORROW AM [id number] HEPATIC FUNCTION PANEL [#[id number]] Priority: STAT Class: ER Collect Standing Order Information Remaining Occurrences:04/15 Interval:TOMORR OW AM [id number] LACTIC ACID [#[id number]] Canceled Priority: Routine Class: ER Collect Canceled by GEOVANI, LAB IN [facility] on SatFeb 08, 2019 8:06 PM Reason: Other Comment: Duplicate Standing Order Information Remaining Occurrences:0 Interval:ONE TI ME Last released:02/08/2019 Released orders: Sun Feb 08, 2019 8:05 PM by: CHAY PALMA [id number] LIPID PANEL [#[id number]] Priority: Routine Class: ER Collect Standing Order Information Remaining Occurrences:04/15 Interval:TOMORROW AM [id number] MAGNESIUM [#[id number]] Priority: Routine Class: ER Collect Standing Order Information Remaining Occurrences: Interval:DAILY [id number] METABOLIC PANEL, BASIC [# [id number]] Priority: Routine Class: ER Collect Standing Order Information Remaining Occurrences:2 05/05 Interval:DAILY [id number] NT- PRO BNP [#[id number]] Canceled Priority: ST AT Class: ER Collect Specimen Source: Blood Canceled by GEOVANI, LAB IN [facility] on Sun Feb 08, 2019 7:3 8 PM Reason: Other Comment: Added to previous accession Standing Order Information Remainin g Occurrences:0/1 Interval:ONE TIME Last released:02/08/2019 Released orders : [place] Feb 08, 2019 7:28 PM by: CHAY PALMA [id number] PHOSPHORUS [#[id number]] Priority: Routine Class: ER Collect Standing Order Information Remaining Occurre nces:04/15 Interval:TOMORROW AM [id number] TROPONIN I [#[id number]] Canceled Priority: STAT Class: ER Collect Canceled by GEOVANI, LAB IN [place] on SatFeb 08, 2019 7:38 PM Reason: Other Comment: Added to previous accession Standing Order Information Remainin g Occurrences:0/1 Interval:ONE TIME Last released:02/08/2019 Released orders : [place] Feb 08, 2019 7:28 PM by: CHAY PALMA [id number] TSH 3RD GENERATION [#[id number]] Priority: Routine Class: ER Collect Standing Order Information Remaining Occurre nces:04/15 Interval:TOMORROW AM [id number] URIC ACID [#[id number]] Priority: Routine Class: ER Collect Standing Order Information Remaining Occurrences:04/15 Inter seema:TOMORROW AM [id number] VALPROIC ACID, FREE [#[id number]] Priority: Routine Class : ER Collect Specimen Source: Blood Standing Order Information Remaining Occurrences:04/15 Inter seema:TOMORROW AM [id number] NT-PRO BNP [#[id number]] Canceled Priority: STAT Class: ER Collect Specimen Source: Blood Specimen Collected: 02/08/2019 7:30 PM Resulting Agency: [facility] Test ID: PBNP Canceled by GEOVANI, LAB IN [place] on SatFeb 08, 2019 7:38 PM Reason: Other Comment: Added to previous accession Released on: 02/08/2019 7: 28 PM [id number] TROPONIN I [#[id number]] Canceled Priority: STAT Class: ER Co llect Specimen Collected: 02/08/2019 7:30 PM Resulting Agency: [facility] Test ID: TROIP Canceled by GEOVANI, LAB IN [place] on SatFeb 08, 2019 7:38 PM Reason: Other Comment: Added to previous accession Released on: 02/08/2019 7:28 PM [id number] NT-PRO BNP [#[id number]] Priority: Blood in Lab Class: ER Collect Resulting Agency: [facility] Test ID: PBNP Standing Order Information Remaining Occurrences:0/1 Released orders: [place] Feb 08, 2019 5:00 PM by: Automatic Batch Process [id number] NT-PRO BNP [#[id number]] Priority: Blood in Lab Class: ER Collect Specimen Source: Serum or Plasma Specim en Collected: 02/08/2019 5:00 PM Resulting Agency: [facility] Test ID: OLGA LIDIA Re leased on: 02/08/2019 5:00 PM [id number] TROPONIN I [#[id number]] Priority: Blood i n Lab Class: ER Collect Resulting Agency: [facility] Test ID: VADIM Standing O rder Information Remaining Occurrences:0/1 Released orders: [place] Feb 08, 2019 5:00 PM by: Hilda singletary Batch Process [id number] TROPONIN I [#[id number]] Priority: Blood in Lab Class: ER Collect Specimen Source: Plasma Specimen Collected: 02/08/2019 5:00 PM Resulting Agency: [facility] Test ID: VADIM Released on: 02/08/2019 5:00 PM [id number] LACTIC ACI D [#[id number]] Priority: STAT Class: ER Collect Resulting Agency: [facility] Test ID: LAC Released on: 02/08/2019 8:05 PM [id number] LACTIC ACID [#[id number]] Canceled Priority: STAT Class: ER Collect Specimen Collected: 02/08/2019 9:00 PM Resulting Agency: [facility] Test ID: LAC Canceled by SOHAIL OLIVO IN [place] on S Feb 08, 2019 8:06 PM Reason: Other Comment: Duplicate Released on: 02/08/2019 8:05 PM [id number] CULTURE, BLOOD [#[id number]] Priority: STAT Class: ER Collect Specimen Source : Blood Standing Order Information Remaining Occurrences:0/1 Interval:ONE TIME Last rele ased:02/08/2019 Released orders: [place] Feb 08, 2019 4:46 PM by: DARRYL KIM [id number] MAGNOLIA B LOOD [#[id number]] Priority: STAT Class: ER Collect Specimen Source: Blood Stand ing Order Information Remaining Occurrences:0/1 Interval:ONE TIME Last released:1 Released orders: [place] Feb 08, 2019 4:46 PM by: DARRYL KIM [id number] CULTURE, BLOOD [#[id number]] Priority: STAT Class: ER Collect Specimen Source: Blood Specimen Collec mikel: 02/08/2019 5:00 PM Resulting Agency: [facility] Test ID: HBCS Released on : 02/08/2019 4:46 PM [id number] CULTURE, BLOOD [#[id number]] Priority: STAT Class: E R Collect Specimen Source: Blood Specimen Collected: 02/08/2019 5:19 PM Resulting Agency: [facility] Test ID: HBCS Released on: 02/08/2019 4:46 PM [id number] CULTURE, RESPIRATORY/SPUTUM/BRO NCH W* [#[id number]] Priority: Routine Class: ER Collect Specimen Source: Sputum Standing Order Informa tion Remaining Occurrences:0/1 Interval:ONE TIME Last released:02/08/2019 Released o rders: Karla Feb 08, 2019 7:28 PM by: CHAY PALMA [id number] LEGIONELLA PNEUMOPHILA AG, URIN E [#[id number]] Priority: Routine Class: ER Collect Specimen Source: Urine Standing Order Informat ion Remaining Occurrences:0/1 Interval:ONE TIME Last released:02/08/2019 Released o rders: [place] Feb 08, 2019 7:28 PM by: CHAY PALMA Specimen source -> Urine [id number] C ULTURE, RESPIRATORY/SPUTUM/BRONCH W* [#[id number]] Priority: Routine Class: ER Collect Specimen Source: Sput um Resulting Agency: [facility] Test ID: HRESC Released on: 02/08/2019 7:28 P M [id number] LEGIONELLA PNEUMOPHILA AG, URINE [#[id number]] Priority: Routine Class: ER Collect Sp ecimen Source: Urine Resulting Agency: [facility] Test ID: ULEGB Specimen source -> Urine Released on: 02/08/2019 7:28 PM [id number] XR CHEST PORT [#[id number] ] Priority: STAT Class: Hospital Performed Standing Order Information Remaining Occurrences:0 /1 Interval:ONE TIME Last released:02/08/2019 Released orders: [place] Feb 08, 2019 4:46 PM by: DARRYL KIM Reason for Exam -> Sepsis [id number] XR CHEST PORT [# [id number]] Priority: STAT Class: Hospital Performed Specimen Collected: 02/08/2019 5:30 PM Resultin g Agency: [facility] Test ID: [id number] Reason for Exam -> Sepsis Released on: 02/08/2019 4:46 PM [id number] EKG, 12 LEAD, INITIAL [#[id number]] Priority: STAT Class: Hospital Performe d Standing Order Information Remaining Occurrences:0/1 Interval:ONE TIME Last released:1 Released orders: [place] Feb 08, 2019 4:46 PM by: DARRYL KIM Reason for Exam: -> S epsis [id number] EKG, 12 LEAD, INITIAL [#[id number]] Priority: STAT Class: Hospital Performe d Specimen Collected: 02/08/2019 4:18 PM Resulting Agency: [facility] Test ID: [id number] Reason for E xam: -> Sepsis Released on: 02/08/2019 4:46 PM [id number] VITAL SIGNS [#[id number]] Priority: Routine Class: Hospital Performed Standing Order Information Remaining Occurrences:0 /1 Interval:EVERY HOUR Last released:02/08/2019 Released orders: [place] Feb 08, 2019 4:46 PM by: DARRYL KIM [id number] STRICT I & O [#[id number]] Priority: Routine Class: Hospital Performed Standing Order Information Remaining Occurrences:0/1 Inter seema:CONTINUOUS Last released:02/08/2019 Released orders: [place] Feb 08, 2019 4:46 PM by: DARRYL SANTOYO [id number] NEUROLOGIC STATUS ASSESSMENT [#[id number]] Priority: Routine Class: Hospital Pe rformed Standing Order Information Remaining Occurrences:0/1 Interval:EVERY HOUR Last re leased:02/08/2019 Released orders: [place] Feb 08, 2019 4:46 PM by: DARRYL KIM [id number] NOTIFY PROVIDER: SPECIFY [#[id number]] Priority: STAT Class: Hospital Performed Standing Order Inf ormation Remaining Occurrences:0/1 Interval:CONTINUOUS Last released:02/08/2019 Releas ed orders: [place] Feb 08, 2019 4:46 PM by: DARRYL KIM Describe Order -> Notify provider within one hour to start vasopressors if patient is unable to maintain a MAP of greater than or equal to 65 mmHg despite fluid resuscitation [id number] HEMODYNAMIC MONITORING [#[id number]] Priority: STAT Class: Hospital Performed Standing Order Information Remainin g Occurrences:0/1 Interval:CONTINUOUS Last released:02/08/2019 Released orders : Sun Feb 08, 2019 4:46 PM by: DARRYL KIM Comment:In the event of persistent arterial hypoten elio after two hours of fluid resuscitation efforts, or initial lactate greater than or equal to 4 mmol/L (36 mg/dl) measure and record CVP and ScvO2 [id number] VITAL SIGNS [#[id number]] Priority: STAT Class: Hospital Performed Released on: 02/08/2019 4:46 PM [id number] STRICT I & O [#[id number]] Priority: STAT Class: Hospital Performed Released o n: 02/08/2019 4:46 PM [id number] NEUROLOGIC STATUS ASSESSMENT [#[id number]] Priority: STAT Class: H ospital Performed Released on: 02/08/2019 4:46 PM [id number] NOTIFY PROVIDER: SPECIFY [#[id number]] Priority: STAT Class: Hospital Performed Describe Order -> Notify provider within one hour to start vasopressors if patient is unable to maintain a MAP of greater than or equal to 65 mmHg despite fluid resuscitation Released on: 02/08/2019 4:46 PM [id number] HEMODYNAMI C MONITORING [#[id number]] Priority: STAT Class: Hospital Performed Comment:In the eduardo nt of persistent arterial hypotension after two hours of fluid resuscitation efforts, or initial lactate greater than or equal to 4 mmol/L (36 mg/dl) measure and record CVP and ScvO2 Released on: 02/08/2019 4:46 PM [id number] VITAL SIGNS PER UNIT ROUTINE [#[id number]] Priority: Routine Class : Hospital Performed Standing Order Information Remaining Occurrences:N/A-not released Interval :CONTINUOUS Comment:More frequently if Indicated. [id number] WEIGH PATIENT [#[id number]] Priority: Routine Class: Hospital Performed Standing Order Information Remaining Occurrences:N /A-not released Interval:DAILY [id number] NOTIFY PROVIDER: VITAL SIGNS CHANGES [#[id number]] Priority: Routine Class: Hospital Performed Standing Order [...] Less than 120 ml in 4 hours [id number] INTAKE AND OUTPUT [#[id number]] Priority: Routine Class: Hospital Performed Standing Order Information Remaining Occurrences:N/A-not released Interval:EVERY 8 HOURS Comment:Measure and document total ever y 8 hours. [id number] APPLY/MAINTAIN SEQUENTIAL COMPRESSIO* [#[id number]] Priority: STAT Class: Hospital Perfo rmed Standing Order Information Remaining Occurrences:N/A-not released Interval:CONTINUOUS [id number] CARDIAC MONITORING [#[id number]] Priority: STAT Class: Hospital Performed Standing Or bassem Information Remaining Occurrences:N/A-not released Interval:Expires 48 hours Type: -> Remote Telemetry IVT11 SALINE LOCK IV [#[id number]] Priority: STAT Class: H ospital Performed Standing Order Information Remaining Occurrences:0/1 Interval:ONE TI ME Last released:02/08/2019 Released orders: Sun Feb 08, 2019 4:46 PM by: DARRYL KIM IVT11 SALINE LOCK IV [#[id number]] Priority: STAT Class: Hospital Performe d Released on: 02/08/2019 4:46 PM IVT3 INSERT PERIPHERAL IV [#[id number]] Priority: Routine Class: Hospital Performed Standing Order Information Remaining Occurrences:N/A-not released Interval:ONE TIME SODIUM CHLORIDE 0.9 % IJ SYRG [#[id number]] Priority: STAT Class: N ormal ALBUTEROL SULFATE 0.083 % (0.83 MG/M* [#[id number]] Priority: STAT Class: Normal MODE OF DELIVERY -> Nebulizer ALBUTEROL SULFATE 0.083 % (0.83 MG/M* [#[id number]] Priority: STAT Cl ass: Normal MODE OF DELIVERY -> Nebulizer SODIUM CHLORIDE 0.9% BOLUS IV [#[id number]] Priority: STAT Class: Normal SODIUM CHLORIDE 0.9% BOLUS IV [#[id number]] Priorit y: STAT Class: Normal CEFEPIME 2 GRAM IVPB MBP [#[id number]] Priority: STAT Class: N ormal Antibiotic Indications -> Pneumonia (HAP) VANCOMYCIN IVPB < 1.5 GM [# [id number]] Priority: STAT Class: Normal Antibiotic Indications -> Pneumonia (HAP) VANCOMYCIN IVPB < 1.5 GM [#[id number]] Priority: STAT Class: Normal Antibiotic Indications -> Pn eumonia (HAP) IPRATROPIUM- ALBUTEROL 2.5 MG-0.5 MG/* [#[id number]] Priority: STAT Class: N ormal MODE OF DELIVERY -> Nebulizer BUDESONIDE 0.5 MG/2 ML NEB SUSPENSION [#[id number]] Priori ty: None Class: Normal MODE OF DELIVERY -> Nebulizer CINACALCET 30 MG TAB [# [id number]] Priority: None Class: Normal ALPRAZOLAM 0.25 MG TAB [#[id number]] Pr iority: None Class: Normal LAMOTRIGINE 25 MG TAB [#[id number]] Priority: None Clas s: Normal MULTIVITAMIN TAB [#[id number]] Priority: None Class: Normal PANTOPRAZOLE 40 MG GRANULES FOR ORAL* [#[id number]] Priority: None Class: Normal PPI INDICATION -> Sym ptomatic GERD .PHARMACY TO SUBSTITUTE PER PROTOCOL [#[id number]] Priority: None Class: N ormal SODIUM CHLORIDE 0.9 % IJ SYRG [#[id number]] Priority: None Class: Normal SODIUM CHLORIDE 0.9 % IJ SYRG [#[id number]] Priority: None Class: Normal ACETAMINOPHEN 32 5 MG TABLET [#[id number]] Priority: None Class: Normal HEPARIN (PORCINE) 5,000 UNIT/ML IJ S* [#[id number]] Priority: None Class: Normal CEFEPIME 1 GRAM IVPB MBP [#[id number]] Priority: STAT Class: Normal Antibiotic Indications -> Pneumonia (HAP) HAP duration of the rapy -> 7 days SODIUM CHLORIDE 0.9 % IV [#[id number]] Priority: STAT Class: N ormal PANTOPRAZOLE 40 MG GRANULES FOR ORAL* [#[id number]] Priority: STAT Class: Normal PPI I NDICATION -> Symptomatic GERD ONDANSETRON IVPB [#[id number]] Priority: STAT Cl ass: Normal ONDANSETRON (PF) 4 MG/2 ML INJECTION [#[id number]] Priority: STAT Class: N ormal CEFEPIME 1 GRAM IVPB MBP [#[id number]] Priority: STAT Class: Normal Antib iotic Indications -> Pneumonia (HAP) HAP duration of therapy -> 7 days CEFEPIME 2 GRAM IVPB MBP [#[id number]] Priority: STAT Class: Normal Antibiotic Indications -> Pneumonia (HAP ) HAP duration of therapy -> 7 days MULTIVITAMIN ORAL LIQUID [#[id number]] Prio rity: Routine Class: Historical Med VALPROIC ACID ( SODIUM SALT) 250 M* [#[id number]] Priority: R outine Class: Historical Med MD38 SEVERE SEPSIS AND SEPTIC SHOCK BUNDL* [#[id number]] Priority: STAT C lass: Hospital Performed Standing Order Information Remaining Occurrences:0/1 Interval:CONTIN UOUS Last released:02/08/2019 Released orders: Karla Feb 08, 2019 4:46 PM by: XIMENA KIM MD38 SEVERE SEPSIS AND SEPTIC SHOCK BUND* [#[id number]] Priority: STAT Class: Hospital Performe d Released on: 02/08/2019 4:46 PM [id number] IP CONSULT TO PRIMARY CARE PROVIDER [#[id number]] Priority : STAT Class: Hospital Performed Standing Order Information Remaining Occurrences:0/1 Inter seema:ONE TIME Last released:02/08/2019 Released orders: Karla Feb 08, 2019 6:24 PM by: DARRYL KIM Reason for Consult: -> admit Did you call or speak to the consulting provider? -> No C onsult To -> dr nelson hills [id number] IP CONSULT TO PRIMARY CARE PROVIDER [#[id number]] Priority: STAT Class: Hospital Performed Reason for Consult: -> admit Did you call or speak to the consulting provider? -> No Consult To -> dr nelson hills Released on: 02/08/2019 6:24 PM CON5 IP CONSULT TO INFECTIOUS DISEAS ES [#[id number]] Priority: Routine Class: Hospital Performed Standing Order Information Remainin g Occurrences:0/1 Interval:ONE TIME Last released:02/08/2019 Released orders : Karla Feb 08, 2019 7:26 PM by: CHAY PALMA Reason for Consult: -> sepsis Did y ou call or speak to the consulting provider? -> No Consult To -> salu CON8 IP CONSULT TO NEPHROLOGY [#[id number]] Priority: Routine Class: Hospital Performed Standing Order Information Remaining Occurrences:0/1 Interval:ONE TIME Last released:02/08/2019 Released orders : Karla Feb 08, 2019 7:26 PM by: CHAY PALMA Reason for Consult: -> hyponatremia Did you call or speak to the consulting provider? -> No Consult To -> dgaim CON5 IP CONSULT TO INFE CTIOUS DISEASES [#[id number]] Priority: Routine Class: Hospital Performed Reason for Consult: -> se psis Did you call or speak to the consulting provider? -> No Consult To -> salu Released on: 02/08 7:26 PM CON8 IP CONSULT TO NEPHROLOGY [#[id number]] Priority: Routine Class : Hospital Performed Reason for Consult: -> hyponatremia Did you call or speak to the consulting prov ider? -> No Consult To -> dgaim Released on: 02/08/2019 7:26 PM [id number] INITIAL PHYSICIAN ORDER: IN PATIENT [#[id number]] Priority: Routine Class: ADT Pend Transfer Standing [...] Extended Care Facility (e.g. Ad ult Home, Jail, etc.) [id number] INITIAL PHYSICIAN ORDER: INPATIENT [#[id number]] Priority: Routine Class: ADT Pend Transfer [...] -> Extended Care Facility (e.g. Adult Home, Jail, etc.) Released on: 02/08/2019 7:23 PM COD2 FULL CODE [#[id number]] Priority: STAT Class: Hospital Performed Standing Order Information Remaining Occurrences:N/A-not released Interval:CONTINUOUS CON54 IP CONSULT TO PULMONOLOGY [#[id number]] Priority: Routine Class: Hospital Performed Standing Order Information Remainin g Occurrences:0/1 Interval:ONE TIME Last released:02/08/2019 Released orders : Sun Feb 08, 2019 7:26 PM by: CHAY PALMA Reason for Consult: -> sob Did you call or speak to the consulting provider? -> No Consult To -> john CON54 IP CONSULT TO PULMON OLOGY [#[id number]] Priority: Routine Class: Hospital Performed Reason for Consult: -> so b Did you call or speak to the consulting provider? -> No Consult To -> malmazada Released on: 02/08/2019 7:26 PM [id number] DIET TUBE FEEDINGS [#[id number]] Priority: STAT Class: H ospital Performed Standing Order Information Remaining Occurrences:0/1 Interval:CONTIN UOUS Last released:02/08/2019 Released orders: Karla Feb 08, 2019 7:26 PM by: CHAY MIRANDA Formula options -> [facility] Delivery Method -> Continuous Starting rate (mL/hr) -> 35 [id number] DIET TUBE FEEDINGS [#[id number]] Priority: STAT Class: Hospital Performe d Formula options -> [facility] Delivery Method -> Continuous Starting rate (mL/hr) -> 35 Relea sed on: 02/08/2019 7:26 PM [id number] RT--OXIMETRY, SPOT CHECK [#[id number]] Priority: Routine C lass: Hospital Performed Standing Order Information Remaining Occurrences:0/1 Interval:CONTIN UOUS Last released:02/08/2019 Released orders: Karla Feb 08, 2019 7:26 PM by: CHAY MIRANDA [id number] RT--OXIMETRY, SPOT CHECK [#[id number]] Priority: Routine Class : Hospital Performed Released on: 02/08/2019 7:26 PM [id number] RT--OXIMETRY, SPOT CHECK [# [id number]] Priority: Routine Class: Hospital Performed Standing Order Information Remaining Occurre nces:0/1 Interval:CONTINUOUS Last released:02/08/2019 Released orders: Karla Feb 08, 019 7:28 PM by: CHAY PALMA [id number] RT--OXYGEN CANNULA [#[id number]] Priority: Routine Class: Hospital Performed Standing Order Information Remaining Occurrences:0 /1 Interval:CONTINUOUS Last released:02/08/2019 Released orders: Karla Feb 08, 2019 7:28 PM by: CHAY PALMA LPM -> 4 Indications for O2? -> HYPOXIA [id number] RT--OXIMETR Y, SPOT CHECK [#[id number]] Priority: Routine Class: Hospital Performed Released on: 02/08 7:28 PM [id number] RT--OXYGEN CANNULA [#[id number]] Priority: Routine Class : Hospital Performed LPM -> 4 Indications for O2? -> HYPOXIA Released on: 02/08/2019 7:28 PMFEvelio solorzano MR#: [id number] * Rm: 371-02Ht: 5' 2" Wt: 125 lb Cod e: Prior Iso:Diagnosis:SOB (shortness of breath) [R06.02]Allergies: No Known Allergies -------- Current as of: 02/08/192144 GI=Given IC=IV Complet ed NB=New Bag --albuterol-ipratropium (DUO-NEB) 2.5 MG-0.5 MG/3 ML #[id number] Admin Amount: 3 mL Ordered Dose: 3 mL Route: Nebulization Freq: NOW Start Date: 11/07/18 No administration times (back 96 hours, ahead 96 hours). ------methylPREDNISolone (PF) (Solu-MEDROL) injection 125 mg #[id number] Admin Amount: 2 mL = 125 mg of 125 mg/2 mL Ordered Dose: 125 mg Route: Int raVENous Freq: NOW Start Date: 11/07/18 No administration times (back 96 hours, ahe ad 96 hours). ------cefTRIAXone (ROCEPHIN) 1 g in 0.9% sodium chloride (MBP/ADV) 50 m L M*#[id number] Admin Amount: 1 g Ordered Dose: 1 g Route: IntraVENous Freq: NOW Start Date: 11/07/18 Rate: 100 mL/hr Duration: 30 Minutes No administration times (back 96 hours, ahead 96 hours). ------azithromycin (ZITHROMAX) 500 mg in NS 250 mL #[id number] Admin Amount: 250 mL = 500 mg of 500 mg/250 mL Ordered Dose: 500 mg Route: Int raVENous Freq: NOW Start Date: 11/07/18 Rate: 250 mL/hr Duration: 6 0 Minutes No administration times (back 96 hours, ahead 96 hours). ------iopamidol (ISOVUE-370) 76 % injection 100 mL #[id number] Admin Amount: 100 mL Ordered Dose: 100 mL Route: IntraVENous Freq: RAD ONCE Start Date: 11/07/18 No administration times (back 96 hours, ahead 96 hours). ------sodium chloride 0.9 % bolus infusion 500 mL #[id number] Admin Amount: 500 mL Ordered Dose: 500 mL Route: IntraVENo us Freq: ONCE Start Date: 11/08/18 Rate: 666.7 mL/hr Duration: 45 Danielle tasha No administration times (back 96 hours, ahead 96 hours). ------ALPRAZolam (XANAX) tablet 0.25 mg #[id number] Admin Amount: 1 Tab (1 x 0.25 mg Tab) Ordered Dose: 0.25 mg Route: Oral Dg q: DAILY Start Date: 11/08/18 No administration times (back 96 hours, ahead 96 hours).Evelio Garnett MR#: [id number] * Rm: 371-02Ht: 5' 2" Wt: 125 lb Cod e: Prior Iso:Diagnosis:SOB (shortness of breath) [R06.02]Allergies: No Known Allergies -------- Current as of: 02/08/192144 GI=Given IC=IV Complet ed NB=New Bag --cefTRIAXone (ROCEPHIN) 1 g in 0.9% sodium chloride (MBP/ADV) 50 mL M*# [id number] Admin Amount: 1 g Ordered Dose: 1 g Route: IntraVENous Freq: EVERY 24 HOURS Start Date: 11/08/18 Rate: 100 mL/hr Duration: 30 Minutes No administration times (back 96 hours, ahead 96 hours). ------azithromycin (ZITHROMAX) 500 mg in 0.9% sodium chloride 250 mL IV PB #[id number] Admin Amount: 500 mg Ordered Dose: 500 mg Route: IntraVENous Freq: EVERY 24 H OURS Start Date: 11/08/18 Rate: 250 mL/hr Duration: 60 Minutes No administration times (back 96 hours, ahead 96 hours). ------LORazepam (ATIVAN) injection 0.5 mg #[id number] Admin Amount: 0.25 mL = 0.5 mg of 2 mg/mL Ordered Dose: 0.5 mg Ro shoal[place]: IntraVENous Freq: ONCE Start Date: 11/10/18 No administration times (back 96 hours, ahead 96 hours). ------LORazepam (ATIVAN) injection 2 mg #[id number] Admin Amount: 1 mL = 2 mg of 2 mg/mL Ordered Dose: 2 mg Route: Int raVENous Freq: ONCE Start Date: 11/11/18 No administration times (back 96 hours, ahe ad 96 hours). ------LORazepam (ATIVAN) injection 0.5 mg #[id number] Admin Amount: 0.25 mL = 0.5 mg of 2 mg/mL Ordered Dose: 0.5 mg Ro [place]: IntraVENous Freq: ONCE Start Date: 11/11/18 No administration times (back 96 hours, ahead 96 hours). ------acetaminophen (OFIRMEV) infusion 1,000 mg #[id number] Admin Amount: 100 mL = 1,000 mg of 1,000 mg/100 mL Ordered Dose: 1,000 mg Ro [place]: IntraVENous Freq: EVERY 6 HOURS Start Date: 11/17/18 Rate: 400 mL/hr Durat ion: 15 Minutes No administration times (back 96 hours, ahead 96 hours). ------HYDROmorphone (DILAUDID) syringe 0.5 mg #[id number] Admin Amount: 0.5 mL = 0.5 mg of 0.5 mg/0.5 mL Ordered Dose: 0.5 mg Route: Int raVENous Freq: EVERY 6 HOURS NEEDED Start Date: 11/17/18 No administration times (back 96 hours, ahe ad 96 hours).Evelio Carlin MR#: [id number] * Rm: 371-02Ht: 5' 2" Wt: 1 25 lb Code: Prior Iso:Diagnosis:SOB (shortness of breath) [R06.02]Allergies: No Known Allergies -------- Current as of: 02/08/192144 GI=Given IC=IV Complet ed NB=New Bag --acetaminophen (OFIRMEV) infusion 1,000 mg #[id number] Admin Amount: 100 mL = 1,000 mg of 1,000 mg/100 mL Ordered Dose: 1,000 mg Ro [place]: IntraVENous Freq: EVERY 6 HOURS Start Date: 11/18/18 Rate: 400 mL/hr Durat ion: 15 Minutes No administration times (back 96 hours, ahead 96 hours). ------piperacillin-tazobactam (ZOSYN) 3.375 g in 0.9% sodium chloride (MBP*#[id number] Admin Amount: 3.375 g Ordered Dose: 3.375 g Route: IntraVENous Freq: EVERY 8 HOURS Start Date: 11/18/18 Rate: 25 mL/hr Duration: 240 Minutes No administrati on times (back 96 hours, ahead 96 hours). ------potassium chloride 10 mEq in 100 ml IVPB #[id number] Admin Amount: 100 mL = 10 mEq of 10 mEq/100 mL Ordered Dose: 10 mEq Route: Int raVENous Freq: EVERY 1 HOUR Start Date: 11/19/18 Rate: 100 mL/hr Duration: 6 0 Minutes No administration times (back 96 hours, ahead 96 hours). ------diatrizoate tiffani-diatrizoat sod (RUTHYGASTROVIEW,GASTRO GRAFIN) 66-10 % *#[id number] Admin Amount: 30 mL Ordered Dose: 30 mL Route: Oral Freq: RAD O NCE Start Date: 11/19/18 No administration times (back 96 hours, ahead 96 hours). ------acetaminophen (OFIRMEV) infusion 1,000 mg #[id number] Admin Amount: 100 mL = 1,000 mg of 1,000 mg/100 mL Ordered Dose: 1,000 mg Ro sho[place]: IntraVENous Freq: EVERY 6 HOURS Start Date: 11/21/18 Rate: 400 mL/hr Durat ion: 15 Minutes No administration times (back 96 hours, ahead 96 hours). ------acetaminophen (OFIRMEV) infusion 1,000 mg #[id number] Admin Amount: 100 mL = 1,000 mg of 1,000 mg/100 mL Ordered Dose: 1,000 mg Ro [place]: IntraVENous Freq: EVERY 6 HOURS Start Date: 11/22/18 Rate: 400 mL/hr Durat ion: 15 Minutes No administration times (back 96 hours, ahead 96 hours). ------LORazepam (ATIVAN) tablet 0.5 mg #[id number] Admin Amount: 1 Tab (1 x 0.5 mg Tab) Ordered Dose: 0.5 mg Route: Per G Tube F req: EVERY BEDTIME Start Date: 11/23/18 No administration times (back 96 hours, ahead 96 hours).Evelio Garnett MR#: [id number] * Rm: 371-02Ht: 5' 2" Wt: 125 lb Cod e: Prior Iso:Diagnosis:SOB (shortness of breath) [R06.02]Allergies: No Known Allergies -------- Current as of: 02/08/192144 GI=Given IC=IV Complet ed NB=New Bag --vancomycin (VANCOCIN) 1,250 mg in 0.9% sodium chloride 250 mL IVPB #[id number] Admin Amount: 1,250 mg Ordered Dose: 1,250 mg Route: IntraVENous Freq: EVERY 12 HO URS Start Date: 11/24/18 Rate: 125 mL/hr Duration: 120 Minutes No administration times (back 96 hours, ahead 96 hours). ------potassium chloride (KLOR-CON) packet for solution 20 mEq #[id number] Admin Amount: 1 Packet (1 x 20 mEq Packet) Ordered Dose: 20 mEq Ro shoal[place]: Oral Freq: 2 TIMES DAILY WITH MEALS Start Date: 11/25/18 No administration times (back 96 hours, ahe ad 96 hours). ------piperacillin-tazobactam (ZOSYN) 3.375 g in 0.9% sodium chloride ([facility] [place]*#[id number] Admin Amount: 3.375 g Ordered Dose: 3.375 g Route: IntraVENous Freq: NOW Start Date: 12/12/18 Rate: 200 mL/hr Duration: 30 Minutes No administrati on times (back 96 hours, ahead 96 hours). ------albuterol-ipratropium (DUO-NEB) 2.5 MG-0.5 MG/3 ML #[id number] Admin Amount: 3 mL Ordered Dose: 3 mL Route: Nebulization Freq: NOW Start Date: 12/12/18 No administration times (back 96 hours, ahead 96 hours). ------methylPREDNISolone (PF) (Solu-MEDROL) injection 125 mg #[id number] Admin Amount: 2 mL = 125 mg of 125 mg/2 mL Ordered Dose: 125 mg Route: Int raVENous Freq: NOW Start Date: 12/12/18 No administration times (back 96 hours, ahe ad 96 hours). ------albuterol-ipratropium (DUO-NEB) 2.5 MG-0.5 MG/3 ML #[id number] Admin Amount: 3 mL Ordered Dose: 3 mL Route: Nebulization Freq: NOW Start Date: 12/12/18 No administration times (back 96 hours, ahead 96 hours). ------albuterol-ipratropium (DUO-NEB) 2.5 MG-0.5 MG/3 ML #[id number] Admin Amount: 3 mL Ordered Dose: 3 mL Route: Nebulization Freq: NOW Start Date: 12/12/18 No administration times (back 96 hours, ahead 96 hours).Ivelisse Carlin MR#: [id number] * Rm: 371-02Ht: 5' 2" Wt: 125 lb Code: Prior Iso:Diagnosis:SOB (shortness of breath) [R06.02]Allergies: No Known Allergies -------- Current as of: 02/08/192144 GI=Given IC=IV Complet ed NB=New Bag -- Followed by Linked Group (Order count: 2)sodium chloride 0.9 % jeff aspen infusion 1,000 mL #[id number] Admin Amount: 1,000 mL Ordered Dose: 1,000 [...] chloride 0.9 % bolus infusion 593 mL #[id number] Admin Amount: 593 mL Ordere d Dose: 593 mL Route: IntraVENous Freq: ONCE Start Date: 12/12/18 No adm inistration times (back 96 hours, ahead 96 hours). ------iopamidol (ISOVUE-370) 76 % injection 125 mL #[id number] Admin Amount: 125 mL Ordered Dose: 125 mL Route: IntraVENous Freq: RAD ONCE Start Date: 12/17/18 No administration times (back 96 hours, ahead 96 hours). ------lidocaine (XYLOCAINE) 20 mg/mL (2 %) injection 100 mg #[id number] Admin Amount: 5 mL = 100 mg of 2,000 mg/100 mL Ordered Dose: 5 mL Route: IntraDERMal Freq: ONCE Start Date: 12/19/18 No administration times (b ack 96 hours, ahead 96 hours). ------oxyCODONE-acetaminophen (PERCOCET) 5-325 mg per tablet 1 Tab #[id number] Admin Amount: 1 Tab Ordered Dose: 1 Tab Route: Oral Freq: EVERY 8 HOURS NEEDED Start Date: 12/19/18 No administration times (back 96 hours, ahead 96 hours). ------furosemide (LASIX) injection 20 mg #[id number] Admin Amount: 2 mL = 20 mg of 10 mg/mL Ordered Dose: 20 mg Ro [place]: IntraVENous Freq: ONCE Start Date: 12/26/18 No administration times (back 96 hours, ahead 96 hours). ------furosemide (LASIX) injection 20 mg #[id number] Admin Amount: 2 mL = 20 mg of 10 mg/mL Ordered Dose: 20 mg Route: Int raVENous Freq: ONCE Start Date: 12/29/18 No administration times (back 96 hours, ahe ad 96 hours).Evelio Carlin MR#: [id number] * Rm: 371-02Ht: 5' 2" Wt: 1 25 lb Code: Prior Iso:Diagnosis:SOB (shortness of breath) [R06.02]Allergies: No Known Allergies -------- Current as of: 02/08/192144 GI=Given IC=IV Complet ed NB=New Bag --albuterol-ipratropium (DUO-NEB) 2.5 MG-0.5 MG/3 ML #[id number] Admin Amount: 3 mL Ordered Dose: 3 mL Route: Nebulization Freq: NOW Start Date: 01/10/19 No administration times (back 96 hours, ahead 96 hours). ------methylPREDNISolone (PF) (Solu-MEDROL) injection 125 mg #[id number] Admin Amount: 2 mL = 125 mg of 125 mg/2 mL Ordered Dose: 125 mg Route: Int raVIdalia Freq: NOW Start Date: 01/10/19 No administration times (back 96 hours, e ad 96 hours). ------albuterol-ipratropium (DUO-NEB) 2.5 MG-0.5 MG/3 ML #[id number] Admin Amount: 3 mL Ordered Dose: 3 mL Route: Nebulization Freq: NOW Start Date: 01/10/19 No administration times (back 96 hours, ahead 96 hours). ------acetaminophen (TYLENOL) tablet 650 mg #[id number] Admin Amount: 2 Tab (2 x 325 mg Tab) Ordered Dose: 650 mg Route: Per Carol Tub e Freq: NOW Start Date: 01/10/19 No administration times (back 96 hours, e ad 96 hours). ------piperacillin-tazobactam (ZOSYN) injection 3.375 g #[id number] Admin Amount: 3.375 g Ordered Dose: 3.375 g Route: IntraVENous Freq: NOW Start Date: 01/10/19 No administration times (back 96 hours, ahead 96 hours). ------vancomycin (VANCOCIN) 1,000 mg in 0.9% sodium chloride 250 mL IVPB #[id number] Admin Amount: 1,000 mg Ordered Dose: 1,000 mg Route: IntraVENous Freq: ONCE Start Date: 01/10/19 Rate: 125 mL/hr Duration: 120 Minutes No administ ration times (back 96 hours, ahead 96 hours). ------ Followed by Linked Group (Order count: 2)sodium chloride 0. 9 % bolus infusion 1,000 mL #[id number] Admin Amount: 1,000 mL Ordered Dose: 1,000 mL Route: IntraVENous Freq: ONCE Start Date: 01/10/19 No administration t imes (back 96 hours, ahead 96 hours).Evelio Carlin MR#: [id number] * Rm: 37 04-16Ht: 5' 2" Wt: [...] 0 .9 % bolus infusion 551 mL #[id number] Admin Amount: 551 mL Ordered Dose: 551 mL Route: IntraVENous Freq: ONCE Start Date: 01/10/19 No administration t imes (back 96 hours, ahead 96 hours). ------0.9% sodium chloride (MBP/ADV) infusion #[id number] Ordered Dose: Route: Freq: Start Date: No administration times (back 96 hours, ahead 96 hours). ------influenza vaccine (65 yrs+)(PF) (FLUZONE HIGH-DOSE) inject io*#[id number] Admin Amount: 0.5 mL Ordered Dose: 0.5 mL Route: IntraMUSCular Freq: PRIOR TO DISCHARGE Start Date: 01/10/19 No administration times (back 96 hours, ahead 96 hours). ------piperacillin-tazobactam (ZOSYN) 3.375 g in 0.9% sodium chloride (MBP*#[id number] Admin Amount: 3.375 g Ordered Dose: 3.375 g Route: IntraVENous Freq: EVERY 8 HOURS Start Date: 01/10/19 Rate: 25 mL/hr Duration: 240 Minutes No administrat ion times (back 96 hours, ahead 96 hours). ------potassium, sodium phosphates (NEUTRA-PHOS) packet 1 Packet #[id number] Admin Amount: 1 Packet Ordered Dose: 1 Packet Route: Per G Tube Freq: 4 TIMES DAILY Start Date: 01/12/19 No administration times (back 96 hours, ahead 96 hours). ------iopamidol (ISOVUE 300) 61 % contrast injection 100 mL #[id number] Admin Amount: 100 mL Ordered Dose: 100 mL Route: IntraVENous Freq: RAD ONCE Start Date: 01/15/19 No administration times (back 96 hours, ahead 96 hours). ------sodium phosphate 15 mmol in 0.9% sodium chlorid e 250 mL infusion #[id number] Ordered Dose: Route: IntraVENous Freq: ONCE Start Date: 01/20/19 Rate: 63.8 mL/hr Duration: 4 Hours No administration patria es (back 96 hours, ahead 96 hours).Evelio Carlin MR#: [id number] * Rm: 37 04-16Ht: 5' 2" Wt: 125 lb Code: Prior Iso:Diagnosis:SOB (shortness of breath) [R06.02]Allergies: No Known Allergies -------- Current as of: 02/08/192144 GI=Given IC=IV Complet ed NB=New Bag --acetaZOLAMIDE SR (DIAMOX) capsule 500 mg #[id number] Admin Amount: 1 Cap (1 x 500 mg Cap) Ordered Dose: 500 mg Route: Oral Freq: O NCE Start Date: 01/23/19 No administration times (back 96 hours, ahead 96 hours). ------sodium chloride (NS) flush 5-10 mL #[id number] Admin Amount: 5-10 mL Ordered Dose: 5-10 mL Route: IntraVENous Freq: NE EDED Start Date: 02/08/19 No administration times (back 96 hours, ahead 96 hours). ------albuterol (PROVENTIL VENTOLIN) nebulizer solution 2.5 mg #[id number] Admin Amount: 3 mL = 2.5 mg of 2.5 mg/3 mL Ordered Dose: 2.5 mg Route: Neb ulization Freq: NOW Start Date: 02/08/19 Administration times (back 96 hours, ahe ad 96 hours): 02/08/19: 1701GI -----albuterol (PROVENTIL VENTOLIN) nebulizer solution 2.5 mg #[id number] Admin Amount: 3 mL = 2.5 mg of 2.5 mg/3 mL Ordered Dose: 2.5 mg Route: Neb ulization Freq: NOW Start Date: 02/08/19 Administration times (back 96 hours, ahe ad 96 hours): 02/08/19: 1701GI ----- Followed by Linked Group (Order count: 2)sodium chloride 0.9 % jeff aspen infusion 1,000 mL #[id number] Admin Amount: 1,000 mL Ordered Dose: 1,000 [...] chloride 0.9 % bolus infusion 701 mL #[id number] Admin Am ount: 701 mL Ordered Dose: 701 mL Route: IntraVENous Freq: ONCE Start D ate: 02/08/19 Administration times (back 96 hours, ahead 96 hours): 02/08/19: 1657NB 3MURRAYGunner Carlin MR#: [id number] * Rm: 371-02Ht: 5' 2" Wt: 125 lb Code: Prior Iso:Diagnosis:SOB (shortness of breath) [R06.02]Allergies: No Known Allergies -------- Current as of: 02/08/192144 GI=Given IC=IV Complet ed NB=New Bag --cefepime (MAXIPIME) 2 g in 0.9% sodium chloride (MBP/ADV) 100 mL P #[id number] Admin Amount: 2 g Ordered Dose: 2 g Route: IntraVENous Freq: NOW Start Date: 02/08/19 Rate: 200 mL/hr Duration: 30 Minutes Administration patria es (back 96 hours, ahead 96 hours): 02/08/19: 1931NB 1943IC -----vancomycin (VANCOCIN) 1,000 mg in 0.9% sodium chloride 250 mL IVPB #[id number] Admin Amount: 1,000 mg Ordered Dose: 1,000 mg Route: IntraVENous Freq: ONCE Start Date: 02/08/19 Rate: 125 mL/hr Duration: 120 Minutes Administra tion times (back 96 hours, ahead 96 hours): 02/08/19: 1959NB -----albuterol-ipratropium (DUO-NEB) 2.5 MG-0.5 MG/3 ML #[id number] Admin Amount: 3 mL Ordered Dose: 3 mL Route: Nebulization Freq: EVERY 4 HOURS RESP Start Date: 02/08/19 Administration times (back 96 hours, ahead 96 hours): 02/08/19: 2038G I 02/09/19: 0000 0400 0800 1200 1600 199902/10/19: 0000 0400 0800 1200 1600 199902/11/19: 0000 0400 0800 1200 1600 199902/12/19: 0000 0400 0800 1200 1600 1999 ---0.9% sodium chloride infusion #[id number] Ordered Dose: 100 mL/hr Route: IntraVENous Freq: CONTINUOUS Start Date: 02/08/19 Rate: 100 mL/hr Duration: Administration times (back 96 hours, ahead 96 hours): 02/08/19: 1942NB -----pantoprazole (PROTONIX) granules for oral suspension 40 mg #[id number] Admin Amount: 40 mg Ordered Dose: 40 mg Route: Per NG tube Freq: DAILY BEFO RE BREAKFAST Start Date: 02/09/19 Administration times (back 96 hours, ahead 96 hours): 02/09/19: 72902/10/19: 72902/11/19: 72902/12/19: 729Evelio Carlin MR#: [id number] * Rm: [id number]: 5' 2" Wt: 125 lb Code: Prior Iso:Diagnosis:SOB (shortness of breath) [R06.02]Allergies: No Known Allergies -------- Current as of: 02/08/192144 GI=Given IC=IV Complet ed NB=New Bag --ondansetron (ZOFRAN) injection 4 mg #[id number] Admin Amount: 2 mL = 4 mg of 4 mg/2 mL Ordered Dose: 4 mg Route: Int raVENous Freq: EVERY 6 HOURS NEEDED Start Date: 02/08/19 No administration times (back 96 hours, ahe ad 96 hours). ------cefepime (MAXIPIME) 2 g in 0.9% sodium chloride (MBP/ADV) 100 mL [facility] #[id number] Admin Amount: 2 g Ordered Dose: 2 [...] End Date:Doc. Provider: Mili Hills DOinfluenza vaccine 2019-20, 65 yrs+,,PF, (FLUZONE HIGH-DOSE [...] Name Value Range Interpretation Code Description [facility] Supporting Document(s ) ID Date Data Source [id number] 02/08/2019 08:59:08 PM EDT [facility] TRANSFER - IN REPORT:Verbal report recei [...] Name Value Range Interpretation Code Description Data [facility] Supporting Document(s ) ID Date Data Source [id number] 02/08/2019 08:58:22 PM EDT [facility] TRANSFER - OUT REPORT:Verbal report give n to Ubaldo PITTS on Evelio Carlin being transferred to [facility] routine progression of careReport consisted of [...] Type Transparent 02/08/2019 4:37 PMHub Color/Line Status [place] 02/08/2019 4:37 PMOpportuni ty for questions and clarification was provided.Patient transported with: Monit orO2 @ 4 litersRegistered Nurse Name Value Range Interpretation Code Description Data Harriett rce(s) Supporting Document(s ) ID Date Data Source [id number] 02/08/2019 08:39:31 PM EDT [facility] The history is provided by the patient.4 :40 PM: Evelio Carlin is a 68 y.o. male with h/o oxygen dependency,schizophrenia , COPD and pneumonia who presents to the ED from [facility] for shortn ess of breath this [...] Calculation (Bezet) 423 ms Ca lculated P [place] 38 degrees Calculated R [place] 17 degrees Calculated T [place] 28 degrees Diagnosis Sinus rhythmLow voltage, precordial [...] and chronic oxygen dep edemcy from a intermediate with shortness ofbreath today. Given Nebulizer w [...] time of disposition: stableI [facility] medications:Prior to Admission medicationsMedication Sig [...] Supporting Document(s ) ID Date Data Source [id number] 02/08/2019 08:04:59 PM EDT [facility] Dose recommendation: cefepime 2 gm q8h f or HAP Name Value Range Interpretation Code Description Data Harriett rce(s) Supporting Document(s ) ID Date Data Source [id number] 02/08/2019 05:35:05 PM EDT [facility] XR CHEST PORTClinical data: SepsisPriors : [...] Name Value Range Interpretation Code Description Data [facility] rce(s) Supporting Document(s ) ID Date Data Source [id number] 02/13/2019 06:21:01 AM EDT [facility] Name Value Range Interpretation Description Data Sup porting Code Source(s) Document(s ) Service comment [facility] Bacteria [facility] - Good identified [facility] by Culture ID Date Data Source [id number] 02/13/2019 06:20:59 AM EDT [facility] Name Value Range Interpretation Description Data Sup porting Code Source(s) Document(s ) Service comment [facility] Bacteria [facility] - Good identified in [facility] specimen by Culture ID Date Data Source [id number] 02/08/2019 08:19:54 PM EDT [facility] Value Range Interpretation Description Data Sup porting Code Source(s) Document(s ) Troponin 0.00-0.05 [facility] I.cardiac Zoroastrianism [Mass/volume Hospital ] in Serum or Plasma [...] to 1.50 ng/mL ID Date Data Source [id number] 02/08/2019 08:19:54 PM EDT [facility] Value Range Interpretation Code Description Data Harriett rce(s) Supporting Document(s ) NOLOINC 1080 PG/ML 0-[address] [facility] NT-proBNP INTERPRETATION: ACUTE CHF UNLIKELY IF NT-proBNP: <125 PG/ML FOR AGE <75 <450 PG/ML FOR AGE >75 CHF LIKELY IF NT-proBNP: >450 PG/ML FOR AGE <50 >900 PG/ ML FOR AGE 50-75 >1800 PG/ML FOR AGE >75 CHF VERY LIKELY IF NT-proBNP: >10,000 PG/ML (REGARDLESS OF AGE) ID Date Data Source [id number] 02/08/2019 06:26:09 PM EDT [facility] Value Range Interpretation Description Data Sup porting Code Source(s) Document(s ) Leukocytes 24.1 4.8-10.6 Above high normal [facility] - Goo d [#/volume] in K/uL [facility]rianism Blood by Hospital Automated count Erythrocytes 3.96 4.70-6.0 Below low normal [facility] - Go od [#/volume] in M/uL 0 [facility] Blood by Hospital Automated count Hemoglobin 13.2 14.0-18. Below low normal [facility] - Good [Mass/volume] g/dL 0 [facility] Hospital RESULTS CONFIRMED Hematocrit [Volume 40.8 % 42.0-52.0 Below low normal [facility] S - Good Fraction] of Blood by [facility] Automated count Erythrocyte mean 103.0 FL 81.0-94.0 Above high normal [facility] - Good corpuscular volume [facility] ospital [Entitic volume] by Automated count Erythrocyte mean 33.3 PG 27.0-35.0 [facility] corpuscular hemoglobin [facility] [Entitic mass] by Automated count Erythrocyte mean 32.4 g/dL 30.7-37.3 [facility] corpuscular hemoglobin [facility] concentration [Mass/volume] by Automated count Erythrocyte distribution 15.9 % 11.5-14.0 Above high normal [facility] - [facility] width [Ratio] by [facility] Automated count Platelets [#/volume] in 365 K/uL 130-400 [facility] Blood by Automated count [facility] Platelet mean volume 9.1 FL 9.2-11.8 Below low normal [facility] - Good [Entitic volume] in [facility] Blood by Automated count Segmented 89 % 48-72 Above high normal [facility] - [facility] neutrophils/100 [facility] Hosp ital leukocytes in Blood by Manual count Band form 7 % <1 Above high normal [facility] - Good neutrophils/100 [facility] Hosp ital leukocytes in Blood by Manual count Lymphocytes/100 4 % 18-40 Below low normal [facility] - [facility] leukocytes in Blood by [facility] Manual count 1+ANISOCYTOSIS1+MACROCYTOSISSLIGHTHYPOCH ROMIA Platelet adequacy [Presence] in Blood by [facility] Light microscopy Differential cell count method - Blood [facility] ID Date Data Source [id number] 02/08/2019 05:51:22 PM EDT [facility] Name Value Range Interpretation Description Data Sup porting Code Source(s) Document(s ) Lactate 2.2 0.4-2.0 Above upper panic [facility] - Good [Moles/volu MMOL/L limits [facility]] in Hospital Serum or Plasma CALLED TO AND READ BACK BYMD JULIO Rivera [id number] 02/08/19 M WAHABUDDIN ID Date Data Source [id number] 02/08/2019 05:27:06 PM EDT [facility] - Good [facility] Hospital Name Value Range Interpretation Description Data Sup porting Code Source(s) Document(s ) Sodium 130 136-145 Below low normal [facility] - Good [Moles/volume] mmol/L [facility]ism in Serum or Hospital Plasma Potassium 4.6 3.5-5.1 [facility] - Good [Moles/volume] mmol/L [facility]ism in Serum or Hospital Plasma Chloride 91 98-107 Below low normal [facility] - Good [Moles/volume] mmol/L [facility]ism in Serum or Hospital Plasma Carbon 39 21-32 Above high normal [facility] - Good dioxide, total mmol/L [facility]astrianism [Moles/volume] Hospital in Serum or Plasma Anion gap in 5 mmol/L 10-20 Below low normal [facility] - Go od Serum or [facility]ism Plasma Hospital Glucose 115 74-106 Above high normal [facility] - Good [Mass/volume] mg/dL [facility]ism in Serum or Hospital Plasma Urea nitrogen 10 mg/dL 7-18 [facility] - Good [Mass/volume] [facility]astrianism in Serum or Hospital Plasma Creatinine 0.49 0.70-1.3 Below low normal [facility] - Good [Mass/volume] mg/dL 0 [facility]ism in Serum or Hospital Plasma Glomerular >60 [facility] - Good filtration Zoroastrianism rate/1.73 sq M Hospital predicted among blacks [Volume Rate/Area] in Serum or Plasma by Creatinine-bas ed formula (MDRD) Glomerular >60 [facility] - Good filtration Zoroastrianism rate/1.73 sq M Hospital predicted among non-blacks [Volume Rate/Area] in Serum or Plasma by Creatinine-bas ed formula (MDRD) (NOTE)Estimated GFR is calculated using the Modification of Diet in RenalDisease (MDRD) Study equation, reported for both Americans(GFRAA) and non- Americans (GFRNA), and normalized to 1.7 6g1hcyj surface area. The physician must decide which [...] 8.5-10.1 [facility] - Good Serum or Plasma [facility] ital Bilirubin.total 0.3 mg/dL 0.2-1.0 [facility] - Good [Mass/volume] in Serum or [facility] Plasma Alanine aminotransferase 9 U/L 13-61 Below low normal [facility] - Good [Enzymatic activity/volume] [facility] in Serum or Plasma Aspartate aminotransferase 19 U/L 15-37 [facility] HS - Good [Enzymatic activity/volume] [facility] in Serum or Plasma by With P-5'-P Alkaline phosphatase 85 U/L 45-117 [facility] - G ood [Enzymatic activity/volume] [facility] in Serum or Plasma Protein [Mass/volume] in 7.8 g/dL 6.4-8.2 [facility] - Good Serum or Plasma [facility] ital Albumin [Mass/volume] in 2.4 g/dL 3.5-4.7 Below low normal [facility] - Good Serum or Plasma by [facility] ospital Bromocresol purple (BCP) dye binding method Globulin [Mass/volume] in 5.4 g/dL 1.7-4.7 Above high [facility] - Good Serum by calculation [facility] Albumin/Globulin [Mass 0.4 0.7-2.8 Below low normal [facility] - Good Ratio] in Serum or Plasma [facility] ID Date Data Source [id number] 02/08/2019 05:36:39 PM EDT [facility] Name Value Range Interpretation Description Data Sup porting Code Source(s) Document(s ) Color of Urine YEL [facility] - [facility] Appearance of CLEAR [facility] - Urine [facility] Specific gravity 1.008 1.003-1. [facility] - of Urine by 030 Good Refractometry [facility] pH of Urine by 7.0 4.6-8.0 [facility] - Test strip [facility] Protein NEG [facility] - [Mass/volume] in Good Urine by Test [facility] Glucose NEG [facility] - [Mass/volume] in Good Urine by [facility]oro[facility]rianism Automated test Hospital strip Ketones NEG [facility] - [Presence] in Good Urine by Zoroastrianism Automated test [facility] strip Bilirubin.total NEG [facility] - [Presence] in Good Urine [facility] Hemoglobin NEG [facility] - [Presence] in Good Urine by Test [facility] Hospital Urobilinogen 0.2 0.2-1.0 [facility] - [Presence] in EU/dL Good Urine by [facility]oroastrianism Automated test Hospital strip Nitrite NEG [facility] - [Presence] in Good Urine by [facility] test Hospital strip Leukocyte NEG [facility] - esterase Good [Presence] in Zoroastrianism Urine by Hospital Automated test strip ID Date Data Source [id number] 02/08/2019 04:23:44 PM EDT [facility] Patient [facility]SHLEY from [facility], with complains of shortness ofbreath. Patient is oxygen dependant. Name Value Range Interpretation Code Description Data Harriett rce(s) Supporting Document(s ) ID Date Data Source [id number] 01/24/2019 05:42:36 PM EDT [facility] Patient for d/c to rehab today. discharg e papers completed. Patient is dischargewith heplock to continue IV ABt at rehab.Siri ent was picked up by the ambulance in stable condition. Name Value Range Interpretation Code Description Data Harriett rce(s) Supporting Document(s ) ID Date Data Source [id number] 01/24/2019 04:35:03 PM EDT [facility] Spoke with Dr hills [facility] Woody mobile to p/uat 5:30. Call to [facility] - message left at the nursing office about patientReturn with request to call back Madelyn again to [facility] - RN sheet mill supervisor Robert advised of plan for patientreturn today. She will call DON and call back to confirm bed. Advised Stiven patient was set -up to return yesterday but delayed discharge untiltoday.studio manager inez led Allan at [facility] and patient is accepted backtoday. Name Value Range Interpretation Code Description Data Harriett rce(s) Supporting Document(s ) ID Date Data Source [id number] 01/24/2019 04:21:45 PM EDT [facility] Physician Discharge SummaryPatient ID:Lina [id number] y.o.1Admit date: 01/10/2019Discharge date:Discharge Diagnoses: Principal Diagnosis <principal problem not specified> Active Problems: Acute respiratory failure with hypoxia ( HCC) (01/10/2019) Pneumonia involving right lung (01/10/2019) Hyponatremia ( 9)Pneumonia RLL and LLLRUL AtelectasisConsults: Pulmonary/Intensive care, ID, GI and NephrologyHospital Course: Patient is a 68 YO male who is a residen t at [facility]. He wastransferred to to the ED for Hypoxia, O2 SAT of 87 % on 4 lpm, re sp rate 30 andaudible wheezes. The intermediate transfer record reporting that the residentremoves his [...] chest WC,Veno us duplex b/l lower extremitiesDisposition: medical terminologist care facilityPatient Instructi ons:Current Discharge Medication ListSTART [...] Supporting Document(s ) ID Date Data Source [id number] 01/24/2019 04:21:22 PM EDT [facility] ID Progress Note01/24/2019Subjective:Pat ient with mental retardation,recurrent aspiration pneumonia.Fever trending down Non verbal,unable to provide history.Objective:Vitals:Patient Vitals for the past 24 hrs: BP Temp Pulse Resp VcI49901/24/19 1557 (!) 105/93 97 F (36.1 C) [...] 3 mL Nebulization Q6H RTLabs:Recent Labs 5 15650 447WBC 8.3 -- --HGB 10.0* -- --PLT [...] Supporting Document(s ) ID Date Data Source [id number] 01/24/2019 02:02:20 PM EDT [facility] PULMONARY/ CCM- Consult NotePatient: Ivelisse Carlin [...] E) 250 mg/5 mL (5 mL) oral iorgbole299 mg, 750 mg, Oral, BID, Mili Hills [...] - 1 59 01/24/19699 - 01/25/19 0659Shift [id number] 2013-8771 24 Hour To krystian [phone] 24 Hour TotalINTAKEI.V.(mL/kg/hr) 800(1.2) 800( 0.6) Volume [...] the last 72 hours.Cultures:No results found for: REGIONAL COMMERCIAL SALES MANAGER SLab ResultsComponent Value Date/Time Culture result: NO [...] Bibasilar subsegmentalatelectasis. Report Electron ically Signed By: Paewl Luna11/08/2018 12:40 AMXr Chest PortResult D ate: [...] Supporting Document(s ) ID Date Data Source [id number] 01/24/2019 01:48:23 PM EDT [facility] Progress NotePatient: Evelio Carlin Sex: male DOA: 01/10/2019Date of : 1950 Age: 68 y.o. :[id number]:Reyes Carlin is 68 y.o. male who is norverbal; appearing comfortable.Wearing O2 via NC.Pt had rectal temperature of 102.3 overnight, ID was notified, sepsis work upwas ordered. Pt was started on iv zosyn and vancomycin.Pt was seen and examined at [facility] on 01/23/19. He is appearing comfortable.Pt was [...] pt was tolerating bolus feedings while in [facility]; It was decided to give the bolus feedings a trial in the snf setting.Puma roland, the patient has been readmitted for aspiration pneumonia, and Flakita is a gain requesting the conversion.Placed on BIPAP for Acute respiratory distress on Saturday. His respiratory statusis now improved. Pt presented from [facility] to the ED, with medical history of Dysphagia ,s/p surgical placement of peg on 11/17/18, se arron intellectual disability,Chronic respiratory failure, large Hiatal Hernia , hyperparathyroid unspecified,personal h/o pulmonary embolus, anxiety disorder, kyp hosis and schizophrenia. Ptis nonverbal at baseline and is unable to provide a hist ory.Per intermediate transfer records, at 6 AM, patient was found Hypoxic, with O2 SAT of 87 % on O2 NC 4 LPM,heart ebrx584 BPM, blood pressure of 105/73,respiratoryrat e of 30 and audible wheeze. Nebulizer treatment was given. Hewas placed on a NRM with improved O2 SAT to 95 % , his respiratory rate was 30and he was afebr ile. The intermediate transfer record reporting that theresident removes nasal canula at times. In the ED pt appearing lethargic and having mild respiratory di stress.CXR showing haziness at the right lung base due to small effusion withatelectas is/infiltrate. No confluent left lung process is seen. Sodium tyrkt071.ABG wi th pH 7.46/53/66/38 O2 SAT 95 [...] past 24 hrs: BP Temp Pulse Resp [id number]/23/19 1512 106/59 97.9 F (3 6.6 C) [...] (L) 10 - 20 ug/mL CULTURE, URINE [[id number]] (Order [id number])Microbi ologyDate: 01/21/2019 Department: [facility] Med Surg Released By: Geovanna Vazquez RN(au to-released) Authorizing: Monica Gomez MDSpecimen Information: Cath Urine Talmage nent Value Flag Ref Range Units StatusSpecial Requests: FinalNO SPECIAL REQUESTSC ulture result: NO GROWTH 2 DAYS FinalLab and CollectionCULTURE, URINE (Order: [id number]) - 01/21/2019CULTURE, BLOOD [[id number]] (Order [id number])MicrobiologyDate: 2018 Department: [facility] Med Surg Released By: Geovanna Vazquez RN(auto-released) Autho rizing: Monica Gomez MDSpecimen Information: Blood Component Value Flag Ref Range Units StatusSpecial Requests: PreliminaryNO SPECIAL REQUESTSCulture re sult: NO GROWTH 3 DAYS PreliminaryCULTURE, BLOOD [[id number]] (Ord er [id number])MicrobiologyDate: 01/21/2019 Department: [facility] Med Surg Released By: Geovanna Vazquez [...] in the axial, sagittal and coronal plane.Utilizing curb supervisor alg orithm the examination was performed to [...] was injectedintravenously for the examinatio n. Utilizing curb supervisor algorithm theexamination was performed to optimize imaging [...] EVELIO CARLIN THIS IS AFINAL REPORT FROM [facility] RESIDENTIAL SALES REPRESENTATIVE DATE OF SERVICE: 2019-01-21 22:23:43 IMAGES: 1EXAM: [...] Ammon Please call Imaging On [phone] ([phone]) with questions. This report was electronically signedby: [...] Supporting Document(s ) ID Date Data Source [id number] 01/24/2019 12:03:13 PM EDT [facility] Progress NoteEmanuel [id number] y.o.Adm it Date: 01/10/2019Subjective:Patient comfortableReview of systems [...] Monica Gomez MD 25 mL/hr at 01/24/19 84645.375 g at 01/24/19 0830 phosphorus (K PHOS [...] K44.9 COPD (chronic obstr uctive pulmonary disease) ([facility]) J44.9 Acute respiratory distress R06.03 Pneumonia J 18.9 COPD exacerbation ([facility]) J44.1 Sepsis due to undetermined organism ([facility]) A41.9 Generalized anxiety disorder F41.1 Acute respiratory failure with hypoxia ([facility]) J 96.01 Pneumonia involving right lung J18.9 Hyponatremia E87.1 PLAN: Stable renal function Will f/u every other day Further recommendations will be based on the pat ient's response to recommendedtreatment and results of the investigation ordered.Toni Iverson MD01/24/201912:01 PM Name Value Range Interpretation Code Description Data Harriett rce(s) Supporting Document(s ) ID Date Data Source [id number] 01/24/2019 08:00:03 AM EDT [facility] Bedside and Verbal shift change report g ankit to Erlinda, RN (oncoming nurse) Nessa Montoya RN (offgoing nurse). Report included the following information SBAR, Kardex, MARand Recent Results. Name Value Range Interpretation Code Description Data Harriett rce(s) Supporting Document(s ) ID Date Data Source [id number] 01/24/2019 10:09:07 AM EDT [facility] Name Value Range Interpretation Description Data Sup porting Code Source(s) Document(s ) Leukocytes 8.3 K/uL 4.8-10.6 [facility] - [#/volume] in Good Blood by [facility] Erythrocytes 3.02 4.70-6.0 Below low normal [facility] - [#/volume] in M/uL 0 Good Blood by [facility] Hemoglobin 10.0 14.0-18. Below low normal [facility] - [Mass/volume] in g/dL 0 Good Blood [facility] Hematocrit 31.3 % 42.0-52. Below low normal [facility] - [Volume 0 Good Fraction] of [facility]oroastrianism Blood by Hospital Automated count Erythrocyte mean 103.6 FL 81.0-94. Above high normal [facility] - corpuscular 0 Good volume [Entitic Zoroastrianism volume] by Hospital Automated count Erythrocyte mean 33.1 PG 27.0-35. [facility] - corpuscular 0 Good hemoglobin Zoroastrianism [Entitic mass] Hospital by Automated count Erythrocyte mean 31.9 30.7-37. [facility] - corpuscular g/dL 3 Good hemoglobin [facility] [Mass/volume] by Automated count Erythrocyte 15.8 % 11.5-14. Above high normal [facility] - distribution 0 Good width [Ratio] by [facility]oroastrianism Automated count [facility] Platelets 551 K/uL 130-400 Above high normal [facility] - [#/volume] in Good Blood by [facility] Automated count Hospital RESULTS VERIFIED BY SMEAR Platelet mean volume 9.2 FL 9.2-11.8 [facility] - G ood [Entitic volume] in [facility] Blood by Automated count Segmented 70 % 48.0-72.0 [facility] - Good neutrophils/100 [facility] ital leukocytes in Blood Lymphocytes/100 17 % 18.0-40.0 Below low normal [facility] - Good leukocytes in [facility] Monocytes/100 leukocytes 10 % 2.0-12.0 [facility] - Good in [facility] Eosinophils/100 3 % 0.0-7.0 [facility] - Good leukocytes in [facility] Basophils/100 leukocytes 0 % 0.0-3.0 [facility] - Good in [facility] Segmented neutrophils 5.8 K/UL 1.5-6.6 [facility] - Good [#/volume] in [facility] Lymphocytes [#/volume] 1.5 K/UL 1.5-3.5 [facility] - Good in [facility] Monocytes [#/volume] in 0.8 K/UL 0.0-1.0 [facility] - Good [facility] Eosinophils [#/volume] 0.2 K/UL 0.0-0.7 [facility] - Good in [facility] Basophils [#/volume] in 0.0 K/UL 0.0-0.1 [facility] - Good [facility] Differential cell count [facility] - Good method - Blood [facility]ism Hospi krystian Immature 1 % 0.0-2.0 [facility] - Good granulocytes/100 [facility] Blood by Automated count ID Date Data Source [id number] 01/24/2019 06:58:20 AM EDT [facility] - Good [facility] Name Value Range Interpretation Description Data Sup porting Code Source(s) Document(s ) Magnesium 1.9 mg/dL 1.6-2.6 [facility] - Good [Mass/volume] [facility]oroastrianism in Serum or Hospital Plasma ID Date Data Source [id number] 01/24/2019 06:58:20 AM EDT [facility] - Good [facility] Name Value Range Interpretation Description Data Sup porting Code Source(s) Document(s ) Sodium 141 136-145 [facility] - Good [Moles/volume] mmol/L [facility] in Serum or Hospital Plasma Potassium 3.7 3.5-5.1 [facility] - Good [Moles/volume] mmol/L [facility] in Serum or Hospital Plasma Chloride 101 98-107 [facility] - Good [Moles/volume] mmol/L [facility] in Serum or Hospital Plasma Carbon 35 21-32 Above high normal [facility] - Good dioxide, total mmol/L [facility]astrianism [Moles/volume] Hospital in Serum or Plasma Anion gap in 9 mmol/L 10-20 Below low normal [facility] - Go od Serum or [facility]rianism Plasma Hospital Glucose 82 mg/dL 74-106 [facility] - Good [Mass/volume] Zoroastrianism in Serum or Hospital Plasma Urea nitrogen 24 mg/dL 7-18 Above high normal [facility] - Good [Mass/volume] Zoroastrianism in Serum or Hospital Plasma Creatinine 0.40 0.70-1.3 Below low normal [facility] - Good [Mass/volume] mg/dL 0 [facility]rianism in Serum or Hospital Plasma Glomerular >60 [facility] - Good filtration Z[facility]astrianism rate/1.73 sq M Hospital predicted among blacks [Volume Rate/Area] in Serum or Plasma by Creatinine-bas ed formula (MDRD) Glomerular >60 [facility] - Good filtration Zoroastrianism rate/1.73 sq M Hospital predicted among non-blacks [Volume Rate/Area] in Serum or Plasma by Creatinine-bas ed formula (MDRD) Calcium 9.7 8.5-10.1 [facility] - Good [Mass/volume] mg/dL Zoroastrianism in Serum or Hospital Plasma Phosphate 3.2 2.5-4.9 [facility] - Good [Mass/volume] mg/dL Zoroastrianism in Serum or Hospital Plasma Albumin 1.7 g/dL 3.5-4.7 Below low normal [facility] - Good [Mass/volume] Zoroastrianism in Serum or Hospital Plasma by Bromocresol purple (BCP) dye binding method ID Date Data Source [id number] 01/24/2019 12:09:37 AM EDT [facility] Problem: Falls - Risk ofGoal: *Absence o f FallsDescriptionDocument Samra Fall Risk and appropriate interventions in the jhon wsheet.Outcome: Progressing Towards GoalNote:Fall Risk Interventions:Mobilit y Interventions: Bed/chair exit alarmMentation Interventions: Bed/chair exit alarm, Door open when patientunattended, More frequent rounding, Room close to [facility], ToiletingroundsMedication Interventions: Bed/chair exit alarmElioh nation Interventions: Bed/chair exit alarm, Toileting schedule/hourlyroundsHistory o f Falls Interventions: Door open when patient unattended, Room close [facility] station Problem: Pressure Injury - [...] Supporting Document(s ) ID Date Data Source [id number] 01/23/2019 06:45:17 PM EDT [facility] Progress NoteMID-[facility] ,[facility].Krystian Monae MD., F.C.C.P.Stella Hamilton MD., F.C.C.P. [address] [place] [id number] [place] [address] [phone]: Evelio Carlin Sex: male DOA: [...] past 24 hrs: BP Temp Pulse Resp [id number]/23/19 1512 106/59 97.9 F (36.6 C) 90 [...] Procedure Component Value Units Date/Time CULTURE, URINE [[id number]] Collected: 01/21/19 2315 Order Status: Completed Specimen: Cath Urine Updated: 01/23/19 1142 Special Requests: NO SPEC IAL REQUESTS Culture result: NO GROWTH 1 DAY CULTURE, BLOOD [[id number]] Collected: 2330 Order Status: Completed Specimen: Blood Updated: 01/23/1940 Special Requests: NO SPECIAL REQUESTS Culture result: NO GROWTH 2 DAYS CULTURE , BLOOD [[id number]] Collected: 01/21/19 2300 Order Status: Completed Specimen: Bloo d Updated: 01/23/1940 Special Requests: NO SPECIAL REQUESTS Culture result: NO GROWTH 2 DAYS CULTURE, BLOOD [[id number]] Collected: 01/10/19 0755 Order Status: Completed Specimen: Blood Updated: 01/15/19 0838 Special Requests: NO SPEC IAL REQUESTS Culture result: NO GROWTH 5 DAYS CULTURE, BLOOD [[id number]] Collecte d: 01/10/19 0740 Order Status: Completed Specimen: Blood Updated: 01/15/19 0838 Special Requests: NO SPECIAL REQUESTS Culture result: NO GROWTH 5 DAYS CULTURE , URINE [[id number]] Collected: 01/10/19 0858 Order Status: Completed Specimen: Urin e from Clean catch Updated: Special Requests: NO SPECIAL REQUESTS C ulture result: NO GROWTH 1 DAY CULTURE, BLOOD [[id number]] Collected: 01/10/19 0800 Or bassem Status: Canceled [...] the axial, sagittal and coronal plane.Utiliz ing curb supervisor algorithm the examination was performed to optimizeimaging [...] was injectedintravenously for the examinatio n. Utilizing curb supervisor algorithm theexamination was performed to optimize imaging [...] EVELIO CARLIN THIS IS AFINAL REPORT FROM [facility] RESIDENTIAL SALES REPRESENTATIVE DATE OF SERVICE: 2019-01-21 22:23:43 IMAGES: 1EXAM: [...] Ammon Please call Imaging On Call1.80 0.TELERAD ([phone]) with questions. This report was electronically signedby: [...] Supporting Document(s ) ID Date Data Source [id number] 01/23/2019 04:19:27 PM EDT [facility] ID Progress Note01/23/2019Subjective:Pat ient with mental retardation,recurrent aspiration pneumonia.Fever trending down Non verbal,unable to provide history.Objective:Vitals:Patient Vitals for the past 24 hrs: BP Temp Pulse Resp QiJ21701/23/19 1512 106/59 97.9 F (36.6 C) 90 [...] vancomycin and zosyn2. Follo w cultures.Natasha Dudley MDFormerly [facility] 20184:16 PM Name Value Range Interpretation Code Description Data Harriett rce(s) Supporting Document(s ) ID Date Data Source [id number] 01/23/2019 02:57:40 PM EDT [facility] Call to rep at [facility] ed available for return today. PRIfaxed. Woody mobile to /u at 6:00. RN advis edPatient is lethargic. Call to emergency contact Joyce [phone] - messagelef t about plan for discharge todayCare Management InterventionsPCP Verified by CM: YesMode of Transport at Discharge: S([facility])Transition of C are Consult (CM Consult): Discharge PlanningMyChart Signup: NoDischarge Dura ble Medical Equipment: NoPhysical Therapy Consult: NoOccupational Therapy Consult: NoSpeech Therapy Consult: NoCurrent Support Network: Nursing Facility([facility] )Plan discussed with Pt/Family/Caregiver: YesFreedom of Choice Offered: YesVeteran Resource Information Provided?: RefusedDischarge LocationDischarge Place ment: [facility] facility([facility]) Name Value Range Interpretation Code Description Data Harriett rce(s) Supporting Document(s ) ID Date Data Source [id number] 01/23/2019 02:34:33 PM EDT [facility] Diamox capsule held, patient has G-Tube and capsule cannot be crushed or broken,must be taken whole as per pharmacy. Called p laced to Dr. Frankel awaiting callback Name Value Range Interpretation Code Description Data Harriett rce(s) Supporting Document(s ) ID Date Data Source [id number] 01/23/2019 12:47:23 PM EDT [facility] Dr. Hills called and said she will be i n to examine the patient and dischargehim back to Only this evening. Name Value Range Interpretation Code Description Data Harriett rce(s) Supporting Document(s ) ID Date Data Source [id number] 01/23/2019 11:52:42 AM EDT [facility] Problem: Nutrition DeficitGoal: *Optimiz e nutritional [...] Supporting Document(s ) ID Date Data Source [id number] 01/23/2019 11:51:53 AM EDT [facility] NUTRITIONFollow Up NoteSubjective: Pt to lerating [...] Supporting Document(s ) ID Date Data Source [id number] 01/23/2019 11:49:24 AM EDT [facility] Name Value Range Interpretation Description Data Sup porting Code Source(s) Document(s ) Vancomycin 8.8 ug/mL 10-20 Below low normal [facility] Good [Mass/volume] Zoroastrianism in Serum or Hospital Plasma --trough (NOTE)Trough [...] peak ortrough levels. ID Date Data Source [id number] 01/23/2019 10:07:02 AM EDT [facility] Progress Bella Carlin68 y.o.Adm it Date: 01/10/2019Active Problems: Acute respiratory failure with hypoxia (HCC) ( 01/10/2019) Pneumonia involving right lung (01/10/2019) Hyponatremia (01/10/2019)Sub jective:Patient is comfortable on Q3Ekiztrhjb items are noted in the History of Presen t Illness.Objective:Visit VitalsBP 99/55 (BP 1 Location: Left arm, BP Patient Positio n: At rest)Pulse 90Temp 97.4 F (36.3 C)Resp 16Ht 5' 2" (1.575 m)Wt 56.9 kg (125 lb 8 oz)SpO2 100%BMI 22.95 kg/m Intake and Output:Date 01/22/19 07 - 01/23/19 065 9 01/23/19 0700 - 01/24/19 0659Shift 5069-9731 9099-2110 24 Hour Total 0700-1 859 9972-6957 24 Hour TotalINTAKEI.V.(mL/kg/hr) 800 800 V olume [...] Monica Gomez MD 25 mL/hr at 01/23/19 49007.375 g at 01/23/19 0917 phosphorus (K PHOS [...] dose acet azolamideContinue present medsD/c Kailey Frankel MDOctephraim m[facility] 2018 Name Value Range Interpretation Code Description Data Harriett rce(s) Supporting Document(s ) ID Date Data Source [id number] 01/23/2019 10:01:10 AM EDT [facility] I called pts sister Joyce at who is documented as HCP and hasgiven previous consent for procedures. Call s traight to voicemail. Kristy asking that she call back to [facility] endo dept dire [facility] so that if they arein agreement we can obtain consent for G to J conversion. A wait call back. Name Value Range Interpretation Code Description Data Harriett rce(s) Supporting Document(s ) ID Date Data Source [id number] 01/23/2019 07:56:43 AM EDT [facility] Progress NotePatient: Evelio Carlin Sex: male DOA: 01/10/2019Date of : 1950 Age: 68 y.o. :[id number]:Reyes Carlin is 68 y.o. male who is norverbal; appearing comfortable.Wearing O2 via NC. Pt had rectal temperature of 102.3 overnight, ID was notified, sepsis work upwas order ed. Pt was started on iv zosyn and vancomycin.Pt was [facility] and [facility] on 01/22Pt was for discharge. . However, [...] stat usis now improved. Pt presented from [facility] to the ED, with medical history of Dysphag ia ,s/p surgical placement of peg on 11/17/18, severe intellectual disability,Chronic respiratory failure, large Hiatal Hernia, hyperparathyroid unspecified,personal h/ o pulmonary embolus, anxiety disorder, kyphosis and schizophrenia. Ptis nonverb al at baseline and is unable to provide a history.Per intermediate transfer record s, at 6 AM, patient [...] t left lung process is seen. Sodium vxyin759.ABG with pH 7.46/53/66/38 O2 SA T 95 [...] in the axial, sagittal and coronal plane.Utilizing curb supervisor algorithm the examination w as performed to [...] was injectedintraven ously for the examination. Utilizing curb supervisor algorithm theexamination wa s performed to optimize [...] EVELIO CARLIN THIS IS AFINAL REPORT FROM [facility] RESIDENTIAL SALES REPRESENTATIVE DATE OF SERVICE: 2019-01-21 22:23:43 IMAGES: 1EXAM: [...] MKevin. Please call Imaging On Call1.80 0.TELERAD ([phone]) with questions. This report was electronically signedby: [...] Name Value Range Interpretation Code Description Data [facility](s) Supporting Document(s ) ID Date Data Source [id number] 01/23/2019 07:33:02 AM EDT [facility] Bedside and Verbal shift change report g iven to Bernarda Parada RN (oncomingnurse) by Ronald Montoya RN (offgoing nurse) . Report included the following information SBAR, Kardex, MARand Recent Results. Name Value Range Interpretation Code Description Data [facility](s) Supporting Document(s ) ID Date Data Source [id number] 01/23/2019 07:27:08 AM EDT [facility] Progress NotePatient: Evelio Carlin Sex: male DOA: 01/10/2019Date of : 1950 Age: 68 y.o. :[id number]:Reyes Carlin is 68 y.o. male who is [...] pt was tolerating bolus feedings while in [facility]; It was decided to give the bolus feedings a trial in the snf setting.Puma roland, the patient has been readmitted for aspiration pneumonia, and Flakita is a gain requesting the conversion.Placed on BIPAP for Acute respiratory distress on Saturday. His respiratory statusis now improved. Pt presented from [facility] to the ED, with medical history of Dysphagia ,s/p surgical placement of peg on 11/17/18, se heller intellectual disability,Chronic respiratory failure, large Hiatal Hernia , hyperparathyroid unspecified,personal h/o pulmonary embolus, anxiety disorder, kyp hosis and schizophrenia. Ptis nonverbal at baseline and is unable to provide a hist ory.Per intermediate transfer records, at 6 AM, patient was found Hypoxic, with O2 SAT of 87 % on O2 NC 4 LPM, heart eppq431 BPM, blood pressure of 105/73, respirat oryrate [...] lung process is seen. Sodium .ABG wi pH 7.46/53/66/38 O2 SAT 95 % [...] in the axial, sagittal and coronal plane.Utilizing curb supervisor alg orithm the examination was performed to [...] was injectedintravenously for the examinatio n. Utilizing curb supervisor algorithm theexamination was performed to optimize imaging [...] EVELIO CARLIN THIS IS AFINAL REPORT FROM [facility] RESIDENTIAL SALES REPRESENTATIVE DATE OF SERVICE: 2019-01-21 22:23:43 IMAGES: 1EXAM: [...] Ammon Please call Imaging On Call1.80 0.TELERAD ([phone]) with questions. This report was electronically signedby: [...] Supporting Document(s ) ID Date Data Source [id number] 01/23/2019 07:51:32 AM EDT [facility] Name Value Range Interpretation Description Data Sup porting Code Source(s) Document(s ) Sodium 140 136-145 [facility] - Good [Moles/volume] mmol/L Zoroastrianism in Serum or Hospital Plasma Potassium 4.1 3.5-5.1 [facility] - Good [Moles/volume] mmol/L Zoroastrianism in Serum or Hospital Plasma Chloride 98 98-107 [facility] - Good [Moles/volume] mmol/L Zoroastrianism in Serum or Hospital Plasma Carbon 37 21-32 Above high normal [facility] - Good dioxide, total mmol/L Zoroastrianism [Moles/volume] Hospital in Serum or Plasma Anion gap in 9 mmol/L 10-20 Below low normal [facility] - Go od Serum or Zoroastrianism Plasma Hospital Glucose 72 mg/dL 74-106 Below low normal [facility] - Good [Mass/volume] Zoroastrianism in Serum or Hospital Plasma Urea nitrogen 24 mg/dL 7-18 Above high normal [facility] - Good [Mass/volume] Zoroastrianism in Serum or Hospital Plasma Creatinine 0.44 0.70-1.3 Below low normal [facility] - Good [Mass/volume] mg/dL 0 Zoroastrianism in Serum or Hospital Plasma Glomerular >60 [facility] - Good filtration Zoroastrianism rate/1.73 sq M Hospital predicted among blacks [Volume Rate/Area] in Serum or Plasma by Creatinine-bas ed formula (MDRD) Glomerular >60 [facility] - Good filtration Zoroastrianism rate/1.73 sq M Hospital predicted among non-blacks [Volume Rate/Area] in Serum or Plasma by Creatinine-bas ed formula (MDRD) Calcium 10.0 8.5-10.1 [facility] - Good [Mass/volume] mg/dL Zoroastrianism in Serum or Hospital Plasma Phosphate 3.3 2.5-4.9 [facility] - Good [Mass/volume] mg/dL Zoroastrianism in Serum or Hospital Plasma Albumin 1.6 g/dL 3.5-4.7 Below low normal [facility] - Good [Mass/volume] Zoroastrianism in Serum or Hospital Plasma by Bromocresol purple (BCP) dye binding method ID Date Data Source [id number] 01/23/2019 07:51:32 AM EDT [facility] Name Value Range Interpretation Description Data Sup porting Code Source(s) Document(s ) Magnesium 1.9 mg/dL 1.6-2.6 [facility] - Good [Mass/volume] Zoroastrianism in Serum or Hospital Plasma ID Date Data Source [id number] 01/23/2019 12:05:58 AM EDT [facility] Problem: Falls - Risk ofGoal: *Absence [...] Supporting Document(s ) ID Date Data Source [id number] 01/22/2019 04:12:50 PM EDT [facility] PULMONARY/ CCM- Consult NotePatient: Ivelisse Carlin [...] E) 250 mg/5 mL (5 mL) oral yljdeiyg687 mg, 750 mg, Oral, BID, Mili Hills [...] 0700 - 1 65801/22/19699 - 01/23/19 0659Shift 2978-5791 8068-6806 24 Hour To krystian 7868-8862 0656-9445 24 Hour TotalINTAKEI.V.(mL/kg/hr) 350(0.5) 350( 0.3) Volume [...] last 72 hours.Cul tures:No results found for: [employer] [facility] [employer] ResultsComponent Value Date/Time Culture result: NO GROWTH [...] Hamilton MDOctober 2018The billing code submitted in [facility] with this evaluation also includes thetime to review patient's prior record s, communicate with the physician team,obtain corroborating data, and discuss the risk and benefits of the proposedmanagement plan with the patient and their family >30 mi nutes. Name Value Range Interpretation Code Description Data Harriett rce(s) Supporting Document(s ) ID Date Data Source [id number] 01/22/2019 11:39:48 AM EDT [facility] Resting comfortably. Tolerates feeds wi thout emesis [...] Supporting Document(s ) ID Date Data Source [id number] 01/22/2019 09:38:43 AM EDT [facility] Progress NoteEvelio Carlin68 y.o.Adm it Date: 01/10/2019Active Problems: Acute respiratory failure with hypoxia (HCC) ( 01/10/2019) Pneumonia involving right lung (01/10/2019) Hyponatremia (01/10/2019)Sub jective:Patient is comfortable on W5Oswtbqcfs items are noted in the History of Presen t Illness.Objective:Visit VitalsBP 125/66 (BP 1 Location: Left arm, BP Patient Positio n: At rest)Pulse 86Temp 97.6 F (36.4 C)Resp 20Ht 5' 2" (1.575 m)Wt 56.9 kg (125 lb 8 oz)SpO2 96%BMI 22.95 kg/m Intake and Output:Date 01/21/19 0700 - 01/22/19 065 9 01/22/19 0700 - 01/23/19 0659Shift 8498-5844 8043-1597 24 Hour Total 0700-1 859 7620-4773 24 Hour TotalINTAKEI.V.(mL/kg/hr) 350(0.5) 350( 0.3) Volume [...] Monica Gomez MD 25 mL/hr at 01/22/19 53969.375 g at 01/22/19 0837 phosphorus (K PHOS NEUTRA L) 250 mg tablet 1 Tab 1 Tab Oral BID Mili Hills DO 1 Tab at 01/22/19 0 837 acetylcysteine (MUCOMYST) 100 mg/mL (10 %) nebulizer solution 400 mg 4 mLNebuli zation BID RT Krystian Monae MD 400 mg at 01/22/19 0812 multivit-folic [...] JOHNSONTAMMY THIS IS AFINAL REPORT FROM IMAG[facility] RESIDENTIAL SALES REPRESENTATIVE DATE OF SERVICE: 2019-01 22:23:43 IMAGES: 1EXAM: XY CHEST PORTABLE HISTORY: Rule out sepsis COMPARISON: [facility] x-ray 01/17/19FINDINGS: The patient is rotated and [...] M. D. Please call Imaging On [phone].[phone] ([phone]) with questions. This report w as electronically signedby: Noel Cole MD 01/21/2019 10:48 PMImpression:Activ e Hospital Problems Diagnosis Date Noted Acute respiratory failure with hypoxia ( HCC) 01/10/2019 Pneumonia involving right lung 01/10/2019 Hyponatremia 01/10/2019 Plan:Stable kidney function and electrolytesContinue present medsD/c jocelyn Esther Frankel MDOctober 2018 Name Value Range Interpretation Code Description Data Harriett rce(s) Supporting Document(s ) ID Date Data Source [id number] 01/22/2019 07:38:13 AM EDT [facility] Bedside and Verbal shift change report g ellynen to Jacquelyn PITTS (oncoming nurse) by Riana Vazquez RN (offgoing nurse). Report incl uded the following information SBAR, Kardex, MARand Recent Results. Name Value Range Interpretation Code Description Data [facility] rce(s) Supporting Document(s ) ID Date Data Source [id number] 01/22/2019 06:43:06 AM EDT [facility] TRANSFER - IN REPORT:Verbal report recei [...] Supporting Document(s ) ID Date Data Source [id number] 01/22/2019 05:49:23 AM EDT [facility] ID Progress Note10/10/2019Subjective:Pat ient with mental retardation,recurrent aspiration pneumonia.on BIPAP at nightPt was febrile to 102.3 overnight, repeat cxr with persistent small BL pleuraleffusion Non verbal,unable to provide history.Awaiting G Tube conversion to J tube.Objective:Vi tals:Patient Vitals for the past 24 hrs: BP Temp Pulse Resp SpO2 Reewtn47/10/19 0436 101/61 98 F (36.7 C) 88 [...] CARLIN THIS IS AFINAL REPORT FROM IM[facility] RESIDENTIAL SALES REPRESENTATIVE DATE OF SERVICE: 2019-01-21 22:23:43 IMAGES: 1EX [...] M.D. Please call Imaging On Call1.80 0.TELERAD ([phone]) with questions. This report was electronically signedby: [...] Supporting Document(s ) ID Date Data Source [id number] 01/22/2019 06:45:07 AM EDT [facility] Value Range Interpretation Description Data Sup porting Code Source(s) Document(s ) Magnesium 2.0 mg/dL 1.6-2.6 [facility] - Good [Mass/volume] Zoroastrianism in Serum or Hospital Plasma ID Date Data Source [id number] 01/22/2019 06:45:07 AM [facility] Name Value Range Interpretation Description Data Sup porting Code Source(s) Document(s ) Sodium 141 136-145 [facility] - Good [Moles/volume] mmol/L Zoroastrianism in Serum or Hospital Plasma Potassium 4.3 3.5-5.1 [facility] - Good [Moles/volume] mmol/L Zoroastrianism in Serum or Hospital Plasma Chloride 101 98-107 [facility] - Good [Moles/volume] mmol/L Zoroastrianism in Serum or Hospital Plasma Carbon 39 21-32 Above high normal [facility] - Good dioxide, total mmol/L Zoroastrianism [Moles/volume] Hospital in Serum or Plasma Anion gap in 7 mmol/L 10-20 Below low normal [facility] - Go od Serum or Zoroastrianism Plasma Hospital Glucose 77 mg/dL 74-106 [facility] - Good [Mass/volume] Zoroastrianism in Serum or Hospital Plasma Urea nitrogen 19 mg/dL 7-18 Above high normal [facility] - Good [Mass/volume] Zoroastrianism in Serum or Hospital Plasma Creatinine 0.40 0.70-1.3 Below low normal [facility] - Good [Mass/volume] mg/dL 0 Zoroastrianism in Serum or Hospital Plasma Glomerular >60 [facility] - Good filtration Zoroastrianism rate/1.73 sq M Hospital predicted among blacks [Volume Rate/Area] in Serum or Plasma by Creatinine-bas ed formula (MDRD) Glomerular >60 [facility] - Good filtration Zoroastrianism rate/1.73 sq M Hospital predicted among non-blacks [Volume Rate/Area] in Serum or Plasma by Creatinine-bas ed formula (MDRD) Calcium 9.7 8.5-10.1 [facility] - Good [Mass/volume] mg/dL Zoroastrianism in Serum or Hospital Plasma Phosphate 2.9 2.5-4.9 [facility] - Good [Mass/volume] mg/dL Zoroastrianism in Serum or Hospital Plasma Albumin 1.5 g/dL 3.5-4.7 Below low normal [facility] - Good [Mass/volume] Zoroastrianism in Serum or Hospital Plasma by Bromocresol purple (BCP) dye binding method ID Date Data Source [id number] 01/22/2019 06:22:40 AM EDT [facility] Name Value Range Interpretation Description Data Sup porting Code Source(s) Document(s ) Ammonia 47 UMOL/L 11-32 Above high normal [facility] - Good [Moles/volum Zoroastrianism e] in Plasma Hospital ID Date Data Source [id number] 01/22/2019 04:34:50 AM EDT [facility] Problem: Nutrition DeficitGoal: *Optimiz e nutritional statusDescriptionPt to progress towards meeting >80% nutrient needs with in 3-7 daysOutcome: Progressing Towards Goal Name Value Range Interpretation Code Description Data Harriett rce(s) Supporting Document(s ) ID Date Data Source [id number] 01/26/2019 08:51:49 AM EDT [facility] Name Value Range Interpretation Description Data Sup porting Code Source(s) Document(s ) Service comment [facility] Bacteria [facility] - Good identified in [facility] specimen by Culture ID Date Data Source [id number] 01/24/2019 09:14:48 AM EDT [facility] Name Value Range Interpretation Description Data Sup porting Code Source(s) Document(s ) Service comment [facility] Bacteria [facility] - Good identified in [facility] specimen by Culture ID Date Data Source [id number] 01/22/2019 12:05:19 AM EDT [facility] Name Value Range Interpretation Description Data Sup porting Code Source(s) Document(s ) Color of Urine YEL [facility] Appearance of CLEAR Abnormal (applies [facility] - Urine to non-numeric Good results) [facility] Specific gravity 1.017 1.003-1. [facility] - of Urine by 030 Good Refractometry [facility] pH of Urine by 8.0 4.6-8.0 [facility] - Test strip [facility] Protein 30 mg/dL NEG Abnormal (applies [facility] - [Mass/volume] in to non-numeric Good Urine by Test results) [facility] Glucose NEG [facility] - [Mass/volume] in Good Urine by Zoroastrianism Automated test [facility] strip Ketones NEG [facility] - [Presence] in Good Urine by Zoroastrianism Automated test [facility] strip Bilirubin.total NEG [facility] - [Presence] in Good Urine [facility] Hemoglobin NEG [facility] - [Presence] in Good Urine by Test [facility] Urobilinogen 0.2 0.2-1.0 [facility] - [Presence] in EU/dL Good Urine by Zoroastrianism Automated test Hospital strip Nitrite NEG [facility] - [Presence] in Good Urine by Zoroastrianism Automated test Hospital strip Leukocyte NEG [facility] - esterase Good [Presence] in Zoroastrianism Urine by Hospital Automated test strip Leukocytes 0-5 [facility] - [Presence] in Good Urine sediment Zoroastrianism by [facility] microscopy Erythrocytes 0-3 [facility] - [#/area] in Good Urine sediment Zoroastrianism by [facility] high power field Epithelial cells 0-10 [facility] - [#/area] in Good Urine sediment Zoroastrianism by [facility] high power field Bacteria NONE [facility] - [Presence] in Good Urine sediment Zoroastrianism by [facility] microscopy Casts [Presence] NONE [facility] - in Urine Good sediment by [facility] Crystals NONE [facility] - [Presence] in Good Urine sediment Zoroastrianism by [facility] microscopy ID Date Data Source [id number] 01/21/2019 11:00:53 PM EDT [facility] Pt straight cath using sterile technique . 145 cc of yellow cloudy urineobtained. UA and urine culture sent. Continue to nir amos pt. Lab at bedsidedrawing blood cultures. Will then administer anitibiotics orders per MD. Name Value Range Interpretation Code Description Data Harriett rce(s) Supporting Document(s ) ID Date Data Source [id number] 01/26/2019 08:51:40 AM EDT [facility] Name Value Range Interpretation Description Data Sup porting Code Source(s) Document(s ) Service comment [facility] Bacteria [facility] identified in [facility]astrianism Unspecified Hospital specimen by Culture ID Date Data Source [id number] 01/21/2019 10:48:00 PM EDT [facility] Referring Physician: MONICA rojas Name: EVELIO [...] MD01/22/20 19 22:46 ESTM.D. Please call Imaging Canal Structure Operator [phone]) withquestions.T his report was electronically signed by:Noel Cole MD 01/21/2019 10:48 PM Si gning date/time: 01/21/2019 10:48 PMSigned by: NOEL COLE Name Value Range Interpretation Code Description Data Harriett rce(s) Supporting Document(s ) ID Date Data Source [id number] 01/21/2019 10:16:36 PM EDT [facility] Pt had rectal temp 102.[address] Gera holley notified. Received order to collectUA and urine culture then start vanco and zosyn . Received order for STAT xraychest, blood cultures. Continue to monitor pt. Name Value Range Interpretation Code Description Data Harriett rce(s) Supporting Document(s ) ID Date Data Source [id number] 01/21/2019 02:17:13 PM EDT [facility] Relevant ProblemsNo relevant active prob lemsAnesthetic [...] Supporting Document(s ) ID Date Data Source [id number] 01/21/2019 01:13:47 PM EDT [facility] Critical Care Progress N [facility]Krystian Monae MD., F.C.C.P.Stella Hamilton MD., F.C.CGualbertoPGualberto [address] [place] [address] [place] [address] Name: Evelio JohnsoninDOB: 1950MRN: [...] hrs : BP Temp Pulse Resp SpO2 Egaugc94/09/19 0737 101/61 99.1 F (37.3 C) (!) [...] dure Component Value Units Date/Time CULTURE, BLOOD [[id number]] Collected: 01/10/19 0 755 Order Status: Completed Specimen: Blood Updated: 01/15/19837 Special Request s: NO SPECIAL REQUESTS Culture result: NO GROWTH 5 DAYS CULTURE, BLOOD [[id number]] Collected: 01/10/19 0740 Order Status: Completed Specimen: Blood Updated: 07/0138 Special Requests: NO SPECIAL REQUESTS Culture result: NO GROWTH 5 DA YS CULTURE, URINE [[id number]] Collected: 01/10/19 0858 Order Status: Completed S pecimen: Urine from Clean catch Updated: Special Requests: NO SPECI AL REQUESTS Culture result: NO GROWTH 1 DAY CULTURE, BLOOD [[id number]] Collected: 0 01/10/19 0800 Order Status: Canceled [...] 300 was injected intravenously for theexamination. Utilizing curb supervisor a lgorithm the examination was performed tooptimize [...] arterycal cifications noted. Atherosclerotic thoracic aorta without aneurysmaldilatation.[place] mikel left hemidiaphragm. There is a small [...] the procedure or anatomicalre gions you entered.Example: .BSHSILASTIMGCAT[[id number]:3This example wo uld display results for the last three orders with an externalprocedure ID of [email or web address] he patient is: [x] acutely ill Risk [...] NODULE7. DYSPH AGIA8. EPILEPSY 9. METABOLIC ENCEPHALOPATHY [id number]. RT .PLEURAL EFFUSION RES OLVEDPLAN : OFF [...] Name Value Range Interpretation Code Description Data [facility] rce(s) Supporting Document(s ) ID Date Data Source [id number] 01/21/2019 11:41:59 AM EDT [facility] ID Progress Note01/21/2019Subjective:Siri ent with mental retardation,recurrent aspiration pneumonia.on BIPAP at nightAf ebrileNon verbal,unable to provide history.Awaiting G Tube conversion to J tube.Objective:Vitals:Patient Vitals for the past 24 hrs: BP Temp [facility] Resp [facility] 101/61 99.1 F (37.3 C) (!) [...] . COPD Plan:1. Continue current managmentMahlet MD HenriFormerly [facility], [phone] AM Name Value Range Interpretation Code Description Data Harriett rce(s) Supporting Document(s ) ID Date Data Source [id number] 01/21/2019 10:35:35 AM EDT [facility] Pt is non-verbalAppears comfortableExam: VSSAbd: soft, NTND, (+) PEGA/P recurrent aspirationFor conversion of PEG to J tub e.Will tentatively plan for tomorrow pending consent from family Name Value Range Interpretation Code Description Data Harriett rce(s) Supporting Document(s ) ID Date Data Source [id number] 01/21/2019 09:31:31 AM EDT [facility] Progress NoteEmanblanka Carlin68 y.o.Adm it Date: 9/28/2019Active Problems: Acute respiratory failure with hypoxia (HCC) ( 01/10/2019) Pneumonia involving right lung (01/10/2019) Hyponatremia (01/10/2019)Sub jective:Patient is comfortable on N5Kgjxghohy items are noted in the History of Presen t Illness.Objective:Visit VitalsBP 101/61 (BP 1 Location: Left arm, BP Patient Positio n: At rest)Pulse (!) 113Temp 99.1 F (37.3 C)Resp 20Ht 5' 2" (1.575 m)Wt 56.9 kg (1 25 lb 8 oz)SpO2 94%BMI 22.95 kg/m Intake and Output:Date 01/20/19 0700 - 01/21/19 065 9 01/21/19 07 - 01/22/19 0659Shift 6995-3419 6705-3712 24 Hour Total 0700-1 859 9999-1190 24 Hour TotalINTAKENG/GT 316 497 7923 Water Flush Volume (mL) (PEG/G astrostomy Tube) [...] Supporting Document(s ) ID Date Data Source [id number] 01/21/2019 08:34:10 AM EDT [facility] Progress NotePatient: Evelio Carlin Sex: male DOA: 01/10/2019Date of : 1950 Age: 68 y.o. :[id number]:Reyes Carlin is 68 y.o. male .who is [...] pt was tolerating bolus feedings while in [facility]; It was decided to give the bolus feedings a trial in the snf setting.Puma roland, the patient has been readmitted for aspiration pneumonia, and Flakita is a gain requesting the conversion.Placed on BIPAP for Acute respiratory distress on Saturday. His respiratory statusis now improved.Pt presented from [facility] to the ED, with medical history of Dysphagia ,s/p surgical placement of peg on 11/17/18, se arron intellectual disability,Chronic respiratory failure, large Hiatal Hernia , hyperparathyroid unspecified,personal h/o pulmonary embolus, anxiety disorder, kyp hosis and schizophrenia. Ptis nonverbal at baseline and is unable to provide a hist ory.Per intermediate transfer records, at 6 AM, patient was found Hypoxic, with O2 SAT of 87 % on O2 NC 4 LPM, heart iqrr846 BPM, blood pressure of 105/73, respirat oryrate [...] confluent left lung process is seen. Sodium croxa993.ABG wi th pH 7.46/53/66/38 O2 SAT 95 [...] in the axial, sagittal and coronal plane.Utilizing curb supervisor algorithm the examination w as performed to [...] was injectedintraven ously for the examination. Utilizing curb supervisor algorithm theexamination wa s performed to optimize [...] Supporting Document(s ) ID Date Data Source [id number] 01/21/2019 07:28:47 AM EDT [facility] Bedside and Verbal shift change report g iven to JACQUELYN CALDERON RN (oncoming nurse)by SKYE KEYES RN (offgoing nurse). Repor t given with SBAR, Kardex,Intake/Output, MAR and Recent Results. Opportunities for qu estions provided andclarification given. Name Value Range Interpretation Code Description Data Harriett rce(s) Supporting Document(s ) ID Date Data Source [id number] 01/21/2019 07:39:56 AM EDT [facility] Name Value Range Interpretation Description Data Sup porting Code Source(s) Document(s ) Sodium 138 136-145 [facility] - Good [Moles/volume] mmol/L [facility]oroastrianism in Serum or Hospital Plasma Potassium 4.0 3.5-5.1 [facility] - Good [Moles/volume] mmol/L [facility]astrianism in Serum or Hospital Plasma Chloride 98 98-107 [facility] - Good [Moles/volume] mmol/L [facility]astrianism in Serum or Hospital Plasma Carbon 36 21-32 Above high normal [facility] - Good dioxide, total mmol/L Zoroastrianism [Moles/volume] Hospital in Serum or Plasma Anion gap in 8 mmol/L 10-20 Below low normal [facility] - Go od Serum or Zoroastrianism Plasma Hospital Glucose 85 mg/dL 74-106 [facility] - Good [Mass/volume] Zoroastrianism in Serum or Hospital Plasma Urea nitrogen 17 mg/dL 7-18 [facility] - Good [Mass/volume] Zoroastrianism in Serum or Hospital Plasma Creatinine 0.37 0.70-1.3 Below low normal [facility] - Good [Mass/volume] mg/dL 0 Zoroastrianism in Serum or Hospital Plasma Glomerular >60 [facility] - Good filtration Zoroastrianism rate/1.73 sq M Hospital predicted among blacks [Volume Rate/Area] in Serum or Plasma by Creatinine-bas ed formula (MDRD) Glomerular >60 [facility] - Good filtration Zoroastrianism rate/1.73 sq M Hospital predicted among non-blacks [Volume Rate/Area] in Serum or Plasma by Creatinine-bas ed formula (MDRD) Calcium 9.8 8.5-10.1 [facility] - Good [Mass/volume] mg/dL Zoroastrianism in Serum or Hospital Plasma Phosphate 2.7 2.5-4.9 [facility] - Good [Mass/volume] mg/dL [facility]oroastrianism in Serum or Hospital Plasma Albumin 1.7 g/dL 3.5-4.7 Below low normal [facility] - Good [Mass/volume] Zoroastrianism in Serum or Hospital Plasma by Bromocresol purple (BCP) dye binding method ID Date Data Source [id number] 01/21/2019 07:39:56 AM EDT [facility] Name Value Range Interpretation Description Data Sup porting Code Source(s) Document(s ) Magnesium 1.9 mg/dL 1.6-2.6 [facility] - Good [Mass/volume] Zoroastrianism in Serum or Hospital Plasma ID Date Data Source [id number] 01/20/2019 02:03:10 PM EDT [facility] Problem: Nutrition DeficitGoal: *Optimiz e nutritional [...] Supporting Document(s ) ID Date Data Source [id number] 01/20/2019 02:02:20 PM EDT [facility] NUTRITIONFollow Up NoteSubjective: Pt to lerated [...] Supporting Document(s ) ID Date Data Source [id number] 01/20/2019 01:39:21 PM EDT [facility] PULMONARY/ CCM- Consult NotePatient: Ivelisse Carlin [...] 250 mg/5 mL (5 m L) oral bacfyxqk359 mg, 750 mg, Oral, BID, [place] [...] 01/20/19 065 9 01/20/19699 - 01/21/19 0659Shift 8547-8335 4475-2431 24 Hour Total 0700-1 859 7058-5427 24 Hour TotalINTAKENG/GT 1280 1280 Water Flush [...] the last 72 hours.Cultures:No results found for: [email or web address] ResultsComponent Valu e Date/Time Culture result: NO [...] staff.Stella Hamilton MDOct2018The billing code submitted in [facility] with this evaluation also includes thetime to review patient's prior record s, communicate with the physician team,obtain corroborating data, and discuss the risk and benefits of the proposedmanagement plan with the patient and their family >30 mi nutes. Name Value Range Interpretation Code Description Data Harriett rce(s) Supporting Document(s ) ID Date Data Source [id number] 01/20/2019 12:22:39 PM EDT [facility] ID Progress Note01/20/2019Subjective:Siri ent with mental retardation,recurrent aspiration pneumonia.on BIPAP at nightAf ebrileNo NEW event overnightNon verbal,unable to provide history.Awaiting G Tube conve rsion to J tube.Objective:Vitals:Patient Vitals for the past 24 hrs: BP Temp Puls e Resp FfG93101/20/19 0743 117/62 99.6 F (37.6 C) 83 [...] . COPD Plan:1. Continue current managmentMahlasim Gomez MDKalkaska Memorial Health Centerober [id number] PM Name Value Range Interpretation Code Description Data Harriett rce(s) Supporting Document(s ) ID Date Data Source [id number] 01/20/2019 09:59:03 AM EDT [facility] GI CONSULTATION NOTENAME: Evelio Vierach beinDOB: 1950MRN: [id number] Physician: ReinierConsult Date: 01/20/2019 Chief Complaint: dysphagiaHistory [...] past 8 hrs: BP Temp Pulse Resp OyH13901/20/19 0743 117/62 99.6 F (37.6 C) 83 [...] hernia K44.9 COPD (chronic obstructive pulmonary disease) ([facility]) J44 .9 Acute respiratory distress R06.03 Pneumonia J18.9 COPD exacerbation ([facility]) J44.1 Sepsis due to undetermined organism ([facility]) A41.9 Generalized anxiety disorde r F41.1 Acute respiratory failure with hypoxia ([facility]) J96.01 Pneumonia involvin g right lung J18.9 Hyponatremia E87.1Plan:Call placed to family re: cons enting for procedure. The procedure is not withoutsome respiratory risk. Once conse nt obtained, can proceed. Name Value Range Interpretation Code Description Data Harriett rce(s) Supporting Document(s ) ID Date Data Source [id number] 01/20/2019 09:25:50 AM EDT [facility] Progress NotePatient: Evelio Carlin Sex: male DOA: 01/10/2019Date of : 1950 Age: 68 y.o. :[id number]:Reyes Carlin is 68 y.o. male Who is more awake and alert. He is appearingcomfortable. He is pulling off his nasal canula. The RN is requestingrestraints.Will order Mitts for restraints.Pt Presented to the ED from [facility] with medical history of Dysphagia ,s/p surgical placement of peg on 11/17/18, severe intellectual disability,Chronic respiratory failure, large Hiatal Hernia, hyperparathyroid unspecified,personal h/ o pulmonary embolus, anxiety disorder, kyphosis and schizophrenia. Ptis nonverb al at baseline and is unable to provide a history.Per intermediate transfer record s, at 6 AM, patient [...] t left lung process is seen. Sodium tnoba855.ABG with pH 7.46/53/66/38 O2 SA T 95 [...] FIO2 in the last 72 hours.CULTURE, BLOOD [[id number]] (Order [id number])MicrobiologyDate: 01/10/2019 De partment: [facility] 3[facility] Med Surg Released By/Authorizing: Wes Romero MD (a uto-released)Specimen Information: Blood Component Value Flag Ref Range Units Sta tusSpecial Requests: PreliminaryNO SPECIAL REQUESTSCulture result: NO GROWT H 3 DAYSCULTURE, BLOOD [[id number]] (Order [id number])MicrobiologyDate: 01/10/2019 De partment: [facility] 3t Med Surg Released By/Authorizing: Wes Romero MD (a uto-released)Specimen Information: Blood Component Value Flag Ref Range Units Sta tusSpecial Requests: PreliminaryNO SPECIAL REQUESTSCulture result: NO GROWT H 3 DAYSCULTURE, URINE [[id number]] (Order [id number])MicrobiologyDate: 01/10/2019 De partment: [facility] 3t Med Surg Released By/Authorizing: Wes Romero [...] in the axial, sagittal and coronal plane.Utilizing curb supervisor algorithm the examination w as performed to [...] CARLIN THIS IS AFINAL REPORT FROM IMAGING RESIDENTIAL SALES REPRESENTATIVE DATE OF SERVICE: 2018-12-18 01:22:40 IMAGES:555 EXAM: [...] 12/18/2018 04:49 GINA Verde Please call Imaging Canal Structure Operator [phone]) with questions. This report was electronically signed by: Tala MENDEZ 12/18/2018 04: 50 AMCta Up Ext Lt W ContResult Date: 12/18/2018History: Arm claudication. FINDI NGS: CTA of the left upper extremity wasperformed helically from level of the shoulder through the fingers after theintravenous administration of 119 cc of Isovue. Sagittal, coronal, and 3-Dreconstructed images obtained on an [employer] workstation are submitted. Noprior studies are available [...] placed on the t able in the bnzcm-hill-vtwn decubitus position.CT scanning was performed locat ion [...] location.Attempts were made to pass an 8 [place] pigtail catheter throug h this location.However, patient [...] Supporting Document(s ) ID Date Data Source [id number] 01/20/2019 09:09:02 AM EDT [facility] Progress NotePatient: Evelio Carlin Sex: male DOA: 01/10/2019Date of : 1950 Age: 68 y.o. :[id number]:Reyes Carlin is 68 y.o. male .who is [...] pt was tolerating bolus feedings while in [facility]; It was decided to give the bolus feedings a trial in the snf setting.Puma roland, the patient has been readmitted for aspiration pneumonia, and Flakita is a gain requesting the conversion.Placed on BIPAP for Acute respiratory distress on Saturday. His respiratory statusis now improved.Pt presented from [facility] to the ED, with medical history of Dysphagia ,s/p surgical placement of peg on 11/17/18, se arron intellectual disability,Chronic respiratory failure, large Hiatal Hernia , hyperparathyroid unspecified,personal h/o pulmonary embolus, anxiety disorder, kyp hosis and schizophrenia. Ptis nonverbal at baseline and is unable to provide a hist ory.Per intermediate transfer records, at 6 AM, patient was found Hypoxic, with O2 SAT of 87 % on O2 NC 4 LPM, heart hcqg348 BPM, blood pressure of 105/73, respirat oryrate [...] confluent left lung process is seen. Sodium xmnah648.ABG wi th pH 7.46/53/66/38 O2 SAT 95 [...] rub.Abdomen: Positive peg intact, non-tender. Not distended. [place] el soundsnormal. No massesExtremities: Extremities normal, atraumatic, [...] in the axial, sagittal and coronal plane.Utilizing curb supervisor algorithm the examination w as performed to [...] was injectedintravenously for the examinatio n. Utilizing curb supervisor algorithm theexamination was performed to optimize imaging [...] Supporting Document(s ) ID Date Data Source [id number] 01/20/2019 07:19:53 AM EDT [facility] Bedside and Verbal shift change report g iven to Allyson Calhoun RN (oncomingnurse) by Ronald Montoya RN (offgoing mason se). Report included the following information SBAR, Kardex, MARand Recent Results. Name Value Range Interpretation Code Description Data Harriett rce(s) Supporting Document(s ) ID Date Data Source [id number] 01/20/2019 07:41:18 AM EDT [facility] Name Value Range Interpretation Description Data Sup porting Code Source(s) Document(s ) Sodium 133 136-145 Below low normal [facility] - Good [Moles/volume] mmol/L [facility]ism in Serum or Hospital Plasma Potassium 4.3 3.5-5.1 [facility] - Good [Moles/volume] mmol/L [facility]astrianism in Serum or Hospital Plasma Chloride 94 98-107 Below low normal [facility] - Good [Moles/volume] mmol/L [facility]astrianism in Serum or Hospital Plasma Carbon 36 21-32 Above high normal [facility] - Good dioxide, total mmol/L Zoroastrianism [Moles/volume] Hospital in Serum or Plasma Anion gap in 7 mmol/L 10-20 Below low normal [facility] - Go od Serum or [facility]astrianism Plasma Hospital Glucose 75 mg/dL 74-106 [facility] - Good [Mass/volume] Zoroastrianism in Serum or Hospital Plasma Urea nitrogen 12 mg/dL 7-18 [facility] - Good [Mass/volume] Zoroastrianism in Serum or Hospital Plasma Creatinine 0.32 0.70-1.3 Below low normal [facility] - Good [Mass/volume] mg/dL 0 Zoroastrianism in Serum or Hospital Plasma Glomerular >60 [facility] - Good filtration Zoroastrianism rate/1.73 sq M Hospital predicted among blacks [Volume Rate/Area] in Serum or Plasma by Creatinine-bas ed formula (MDRD) Glomerular >60 [facility] - Good filtration Zoroastrianism rate/1.73 sq M Hospital predicted among non-blacks [Volume Rate/Area] in Serum or Plasma by Creatinine-bas ed formula (MDRD) Calcium 9.5 8.5-10.1 [facility] - Good [Mass/volume] mg/dL [facility]astrianism in Serum or Hospital Plasma Phosphate 2.3 2.5-4.9 Below low normal [facility] - Good [Mass/volume] mg/dL [facility]astrianism in Serum or Hospital Plasma Albumin 1.5 g/dL 3.5-4.7 Below low normal [facility] - Good [Mass/volume] Zoroastrianism in Serum or Hospital Plasma by Bromocresol purple (BCP) dye binding method ID Date Data Source [id number] 01/20/2019 07:41:18 AM [facility] Name Value Range Interpretation Description Data Sup porting Code Source(s) Document(s ) Magnesium 2.0 mg/dL 1.6-2.6 [facility] - Good [Mass/volume] Zoroastrianism in Serum or Hospital Plasma ID Date Data Source [id number] 01/20/2019 07:11:48 AM EDT [facility] Name Value Range Interpretation Description Data Sup porting Code Source(s) Document(s ) Leukocytes 9.0 K/uL 4.8-10.6 [facility] - [#/volume] in Good Blood by Zoroastrianism Automated count [facility] Erythrocytes 3.14 4.70-6.0 Below low normal [facility] - [#/volume] in M/uL 0 Good Blood by Zoroastrianism Automated count [facility] Hemoglobin 10.2 14.0-18. Below low normal [facility] - [Mass/volume] in g/dL 0 [facility] Blood [facility] Hematocrit 31.7 % 42.0-52. Below low normal [facility] - [Volume 0 Good Fraction] of Zoroastrianism Blood by Hospital Automated count Erythrocyte mean 101.0 FL 81.0-94. Above high normal [facility] - corpuscular 0 Good volume [Entitic Zoroastrianism volume] by Hospital Automated count Erythrocyte mean 32.5 PG 27.0-35. [facility] - corpuscular 0 Good hemoglobin Zoroastrianism [Entitic mass] Hospital by Automated count Erythrocyte mean 32.2 30.7-37. [facility] - corpuscular g/dL 3 Good hemoglobin Zoroastrianism concentration [facility] [Mass/volume] by Automated count Erythrocyte 16.0 % 11.5-14. Above high normal [facility] - distribution 0 Good width [Ratio] by Zoroastrianism Automated count Hospital Platelets 333 K/uL 130-400 [facility] - [#/volume] in [facility] Blood by Zoroastrianism Automated count Hospital Platelet mean 8.7 FL 9.2-11.8 Below low normal [facility] - volume [Entitic Good volume] in [facility] by Automated Hospital count Segmented 62 % 48.0-72. [facility] - neutrophils/100 0 [facility] leukocytes in [facility] Lymphocytes/100 21 % 18.0-40. [facility] - leukocytes in 0 [facility] Monocytes/100 16 % 2.0-12.0 Above high normal [facility] - leukocytes in [facility] Eosinophils/100 1 % 0.0-7.0 [facility] - leukocytes in [facility] Basophils/100 0 % 0.0-3.0 [facility] - leukocytes in [facility] Segmented 5.3 K/UL 1.5-6.6 [facility] - neutrophils Good [#/volume] in [facility] Lymphocytes 1.9 K/UL 1.5-3.5 [facility] - [#/volume] in [facility] Monocytes 1.4 K/UL 0.0-1.0 Above high normal [facility] - [#/volume] in [facility] Eosinophils 0.1 K/UL 0.0-0.7 [facility] - [#/volume] in [facility] Basophils 0.0 K/UL 0.0-0.1 [facility] - [#/volume] in [facility] Differential [facility] - cell count [facility] Immature 2 % 0.0-2.0 [facility] - granulocytes/100 Good leukocytes in [facility] by Hospital Automated count ID Date Data Source [id number] 01/19/2019 11:12:10 PM EDT [facility] Problem: Falls - Risk ofGoal: *Absence [...] emollients, Internal/External urinary devices, Check for incontinence O6mcnxt and as neededActivity Interventions: Pressure r edistribution [...] Supporting Document(s ) ID Date Data Source [id number] 01/19/2019 07:20:58 PM EDT [facility] Bedside and Verbal shift change report carol pham to Nelson Montoya RN (oncomingnurse) by SHIRA KNOX RN (offgoing nurse). Rep ort included the followinginformation SBAR, Kardex, MAR and Recent Results. Name Value Range Interpretation Code Description Data Harriett rce(s) Supporting Document(s ) ID Date Data Source [id number] 01/19/2019 02:48:11 PM EDT [facility] Progress NotePatient: Evelio Carlin Sex: male DOA: 01/10/2019Date of : 1950 Age: 68 y.o. :[id number]:Reyes Carlin is 68 y.o. male . who is Nonverbal; appearing comfortable.Wearing O2 NCHe was seen and examined at bedside on 01/18/19.Placed on BIPAP for Acute respir atory distress on Saturday.Pt presented from [facility] to the ED, with medical history of Dysphagia ,s/p surgical placement of peg on 11/17/18, severe intellectual disability, Chronic respiratory failure, large Hiatal Hernia, hyperparathyroid unspecified,pe rsonal h/o pulmonary embolus, anxiety disorder, kyphosis and schizophrenia. Pt is nonverbal at baseline and is unable to provide a history.Per intermediate trans cristina records, at 6 AM, patient was found Hypoxic, with O2SAT of 87 % on O2 NC 4 L PM, heart mmqu058 BPM, blood pressure of 105/73, respiratoryrate of [...] t left lung process is seen. Sodium vqfux140.ABG with pH 7.46/53/66/38 O2 SA T 95 [...] the axial, sagittal and coronal plane.Utiliz ing curb supervisor algorithm the examination was performed to optimizeimaging [...] was injectedintravenously for the examinatio n. Utilizing curb supervisor algorithm theexamination was performed to optimize imaging [...] Supporting Document(s ) ID Date Data Source [id number] 01/19/2019 02:24:05 PM EDT [facility] Progress NotePatient: Evelio Carlin Sex: male DOA: 01/10/2019Date of : 1950 Age: 68 y.o. :[id number]:Reyes Carlin is 68 y.o. male Who is more awake and alert. He is appearingcomfortable. He is pulling off his nasal canula. The RN is requestingrestraints.Will order Mitts for restraints.Pt Presented to the ED from [facility] with medical history of Dysphagia ,s/p surgical placement of peg on 11/17/18, severe intellectual disability,Chronic respiratory failure, large Hiatal Hernia, hyperparathyroid unspecified,personal h/ o pulmonary embolus, anxiety disorder, kyphosis and schizophrenia. Ptis nonverb al at baseline and is unable to provide a history.Per intermediate transfer record s, at 6 AM, patient [...] t left lung process is seen. Sodium drayb600.ABG with pH 7.46/53/66/38 O2 SA T 95 [...] in the last 72 tammy rs.CULTURE, BLOOD [[id number]] (Order [id number])MicrobiologyDate: 01/10/2019 De partment: [facility] Released By/Authorizing: Wes Romero MD (a uto-released)Specimen Information: Blood Component Value Flag Ref Range Units Sta tusSpecial Requests: PreliminaryNO SPECIAL REQUESTSCulture result: NO GROWT H 3 DAYSCULTURE, BLOOD [[id number]] (Order [id number])MicrobiologyDate: 01/10/2019 De partment: [facility] Released By/Authorizing: Wes Romero MD (a uto-released)Specimen Information: Blood Component Value Flag Ref Range Units Sta tusSpecial Requests: PreliminaryNO SPECIAL REQUESTSCulture result: NO GROWT H 3 DAYSCULTURE, URINE [[id number]] (Order [id number])MicrobiologyDate: 01/10/2019 De partment: [facility] [...] in the axial, sagittal and coronal plane.Utilizing curb supervisor algorithm the examination w as performed to [...] CARLIN THIS IS AFINAL REPORT FROM IMAGING RESIDENTIAL SALES REPRESENTATIVE DATE OF SERVICE: 2018-12-18 01:22:40 IMAGES:555 EXAM: [...] 12/18/2018 04:49 GINA Verde Please call Imaging Canal Structure Operator [phone] with questions. This report was electronically signed by: Tala MENDEZ 12/18/2018 04: 50 AMCta Up Ext Lt W ContResult Date: 12/18/2018History: Arm claudication. FINDI NGS: CTA of the left upper extremity wasperformed helically from level of the shoulder through the fingers after theintravenous administration of 119 cc of Isovue. Sagittal, coronal, and 3-Dreconstructed images obtained on an [employer] workstation are submitted. Noprior studies are available [...] placed on the t able in the ymzzv-jxpg-cckd decubitus position.CT scanning was performed locat ion [...] location.Attempts were made to pass an 8 Emirati pigtail catheter throug h this location.However, patient [...] Supporting Document(s ) ID Date Data Source [id number] 01/19/2019 01:44:16 PM EDT [facility] ID Progress Note01/19/2019Subjective:Siri ent with mental retardation,recurrent aspiration pneumonia.on BIPAPNo NEW even t overnightNon verbal,unable to provide history.No events over nightAfebrileWbc within normal limitCultures negativeObjective:Vitals:Patient Vitals for the past 24 hrs: BP Temp Pulse Resp SpO2 Ycpcth06/07/19 0850 - - - - 96 % [...] Supporting Document(s ) ID Date Data Source [id number] 01/19/2019 01:38:28 PM EDT [facility] Problem: Falls - Risk ofGoal: *Absence o f FallsDescriptionDocument Samra Fall Risk and appropriate interventions in the hjon wsheet.Outcome: Progressing Towards GoalNote:Fall Risk Interventions:Mobilit y [...] Supporting Document(s ) ID Date Data Source [id number] 01/19/2019 12:48:35 PM EDT [facility] Progress NoteMID[facility] ,[facility].Krystian Monae MD., F.C.C.P.Stella Hamilton MD., F.C.C.P. 9W 1 [facility] [address] [place] [id number] [place] [phone]: Evelio Carlin Sex: male DOA: 01/10/2019Da te of : 1950 Age: 68 y.o. LOS: LOS: 9 daysSubjective:Mr. Gayla beltran is a 68 y.o. year old male who is being seen for ACUTE COPD,ASPIRATION PNEUMONI A . CHEST XRAY 01/17/2017 IS FAILY CLEAR THOUGH ROTATED FILM .Objective:Vital Si gns:Patient Vitals for the past 24 hrs: BP Temp Pulse Resp SpO2 Rsgurj82/07/19 0850 - - - - 96 % [...] Procedure Component Value Units Date/Time CULTURE, BLOOD [[id number]] Col lected: 01/10/19 0755 Order Status: Completed Specimen: Blood Updated: 07/01 Special Requests: NO SPECIAL REQUESTS Culture result: NO GROWTH 5 DA YS CULTURE, BLOOD [[id number]] Collected: 01/10/19 0740 Order Status: Completed S pecimen: Blood Updated: 01/15/19837 Special Requests: NO SPECIAL REQUESTS C ulture result: NO GROWTH 5 DAYS CULTURE, URINE [[id number]] Collected: 01/10/19 0 858 Order Status: Completed Specimen: Urine from Clean catch Updated: Special Requests: NO SPECIAL REQUESTS Culture result: NO GROWTH 1 DAY CULTURE, BLOOD [[id number]] Collected: 01/10/19 0800 Order Status: Canceled Specimen: [...] in the axial, sagittal and coronal plane.Utilizing curb supervisor algorithm the examination w as performed to [...] was injectedintravenously for the examinatio n. Utilizing curb supervisor algorithm theexamination was performed to optimize imaging [...] [facility]IMPRESSION: No evidence of deep vein thrombosis within [...] FOR D/C PLANNING , DISCUSSED WITH DR REINIER Monae MD F.C.C.P .January 19, 201912:43 PM Name Value Range Interpretation Code Description [facility] Supporting Document(s ) ID Date Data Source [id number] 01/19/2019 11:18:30 AM EDT [facility] YUAN completed. Name Value Range Interpretation Code Description Data [facility] Supporting Document(s ) ID Date Data Source [id number] 01/19/2019 10:09:18 AM EDT [facility] Per MD anticipated discharge today for p t, Only liaison aware. Name Value Range Interpretation Code Description Data [facility] rce(s) Supporting Document(s ) ID Date Data Source [id number] 01/19/2019 06:48:53 AM EDT [facility] Bedside and Verbal shift change report g iven to Devang Knox RN (oncoming nurse)by Gaston Starr RN (offgoing nurse). Report include d the following information SBAR,Kardex and MAR. Name Value Range Interpretation Code Description Data [facility] rce(s) Supporting Document(s ) ID Date Data Source [id number] 01/19/2019 09:33:51 AM EDT [facility] Name Value Range Interpretation Description Data Sup porting Code Source(s) Document(s ) Leukocytes 7.4 K/uL 4.8-10.6 [facility] - [#/volume] in Good Blood by [facility] Automated count Hospital Erythrocytes 3.34 4.70-6.0 Below low normal [facility] - [#/volume] in M/uL 0 Good Blood by [facility] Automated count Hospital Hemoglobin 11.0 14.0-18. Below low normal [facility] - [Mass/volume] in g/dL 0 Good Blood [facility] Hematocrit 33.8 % 42.0-52. Below low normal [facility] - [Volume 0 Good Fraction] of [facility] Blood by Hospital Automated count Erythrocyte mean 101.2 FL 81.0-94. Above high normal [facility] - corpuscular 0 Good volume [Entitic [facility] volume] by Hospital Automated count Erythrocyte mean 32.9 PG 27.0-35. [facility] - corpuscular 0 Good hemoglobin [facility] [Entitic mass] Hospital by Automated count Erythrocyte mean 32.5 30.7-37. [facility] - corpuscular g/dL 3 Good hemoglobin [facility] concentration Hospital [Mass/volume] by Automated count Erythrocyte 16.1 % 11.5-14. Above high normal [facility] - distribution 0 Good width [Ratio] by [facility] Automated count Hospital Platelets 339 K/uL 130-400 [facility] - [#/volume] in Good Blood by [facility] Automated count Hospital Platelet mean 9.1 FL 9.2-11.8 Below low normal [facility] - volume [Entitic Good volume] in Blood [facility] by Automated Hospital count Segmented 64 % 48-72 [facility] - neutrophils/100 Good leukocytes in [facility] Blood by Manual Hospital count Band form 3 % <1 Above high normal [facility] - neutrophils/100 Good leukocytes in [facility] Blood by Manual Hospital count Lymphocytes/100 17 % 18-40 Below low normal [facility] - leukocytes in Good Blood by Manual [facility] count Hospital Monocytes/100 15 % 2-12 Above high normal [facility] - leukocytes in Good Blood by Manual [facility] count Hospital Eosinophils/100 1 % 0-7 [facility] - leukocytes in Good Blood by Manual [facility]astrian[facility] count [facility] 2+ANISOCYTOSIS2+MACROCYTOSIS Platelet adequacy [Presence] in Blood by [facility] Light microscopy Differential cell count method - Blood [facility] ID Date Data Source [id number] 01/19/2019 08:18:56 AM EDT [facility] Name Value Range Interpretation Description Data Sup porting Code Source(s) Document(s ) Sodium 131 136-145 Below low normal [facility] [Moles/volume] mmol/L [facility] in Serum or Hospital Plasma Potassium 4.4 3.5-5.1 [facility] - Good [Moles/volume] mmol/L [facility] in Serum or Hospital Plasma Chloride 93 98-107 Below low normal [facility] - Good [Moles/volume] mmol/L [facility] in Serum or Hospital Plasma Carbon 35 21-32 Above high normal [facility] - Good dioxide, total mmol/L [facility] [Moles/volume] Hospital in Serum or Plasma Anion gap in 7 mmol/L 10-20 Below low normal [facility] - Go od Serum or [facility] Plasma [facility] Glucose 101 74-106 [facility] - Good [Mass/volume] mg/dL [facility] in Serum or Hospital Plasma Urea nitrogen 11 mg/dL 7-18 [facility] - [facility] [Mass/volume] [facility] in Serum or Hospital Plasma Creatinine 0.45 0.70-1.3 Below low normal [facility] [Mass/volume] mg/dL 0 [facility] in Serum or Hospital Plasma Glomerular >60 [facility] - [facility] filtration [facility] rate/1.73 sq M Hospital predicted among blacks [Volume Rate/Area] in Serum or Plasma by Creatinine-bas ed formula (MDRD) Glomerular >60 [facility] - [facility] filtration [facility] rate/1.73 sq M Hospital predicted among non-blacks [Volume Rate/Area] in Serum or Plasma by Creatinine-bas ed formula (MDRD) Calcium 9.7 8.5-10.1 [facility] - Good [Mass/volume] mg/dL [facility] in Serum or Hospital Plasma Phosphate 1.8 2.5-4.9 Below low normal [facility] - Good [Mass/volume] mg/dL [facility] in Serum or Hospital Plasma Albumin 1.7 g/dL 3.5-4.7 Below low normal [facility] [Mass/volume] [facility] in Serum or Hospital Plasma by Bromocresol purple (BCP) dye binding method ID Date Data Source [id number] 01/19/2019 08:18:56 AM EDT [facility] Name Value Range Interpretation Description Data Sup porting Code Source(s) Document(s ) Magnesium 1.8 mg/dL 1.6-2.6 [facility] - Good [Mass/volume] [facility] in Serum or Hospital Plasma ID Date Data Source [id number] 01/19/2019 02:26:44 AM EDT [facility] Progressing slowly Name Value Range Interpretation Code Description Data Harriett rce(s) Supporting Document(s ) ID Date Data Source [id number] 01/18/2019 07:31:43 PM EDT [facility] Bedside and Verbal shift change report carol Starr RN (oncoming nurse) Mely KNOX RN (offgoing nurse). Report in cluded the following informationSBAR, Kardex, MAR and Recent Results. Name Value Range Interpretation Code Description Data Harriett rce(s) Supporting Document(s ) ID Date Data Source [id number] 01/18/2019 02:31:52 PM EDT [facility] Progress NotePatient: Evelio Carlin Sex: male DOA: 01/10/2019Date of : 1950 Age: 68 y.o. :[id number]:Reyes Carlin is 68 y.o. male who is Nonverbal; appearing comfortable.Wearing O2 NCHe wa s seen and examined at bedside on 01/17/19.Placed on BIPAP yesterday for Ac [place] respiratory distress.Pt presented from [facility] to the ED, with medical history of Dysphagia ,s/p surgical placement of peg on 11/17/18, severe intellectual disability, Chronic respiratory failure, large Hiatal Hernia, hyperparathyroid unspecified,pe rsonal h/o pulmonary embolus, anxiety disorder, kyphosis and schizophrenia. Pt is nonverbal at baseline and is unable to provide a history.Per intermediate trans cristina records, at 6 AM, patient was found Hypoxic, with O2SAT of 87 % on O2 NC 4 L PM, heart czcy805 BPM, blood pressure of 105/73, respiratoryrate of [...] t left lung process is seen. Sodium bkyxi467.ABG with pH 7.46/53/66/38 O2 SA T 95 [...] FIO2 in the last 72 hours.CULTURE, BLOOD [[id number]] (Order [id number])MicrobiologyDate: 2018 Department: [facility] Med Surg Released By/Authorizing: Wes Romero MD (a uto-released)Specimen Information: Blood Component Value Flag Ref Range Units Sta tusSpecial Requests: FinalNO SPECIAL REQUESTSCulture result: NO GROWTH 5 DAYS CULTURE, BLOOD [[id number]] (Order [id number])MicrobiologyDate: 01/10/2019 De partment: [facility] Med Surg Released By/Authorizing: Wes Romero [...] in the axial, sagittal and coronal plane.Utilizing curb supervisor algorithm the examination w as performed to [...] was injectedintravenously for the examinatio n. Utilizing curb supervisor algorithm theexamination was performed to optimize imaging [...] jocelyn riley on the table in the behks-xpga-gkls decubitus position.CT scanning was perfo rmed location [...] location.Attempts were made to pass an 8 Emirati pigtail catheter thr ough this location.However, patient [...] Supporting Document(s ) ID Date Data Source [id number] 01/18/2019 02:10:24 PM EDT [facility] Progress NotePatient: Evelioblanka Carlin Sex: male DOA: 01/10/2019Date of : 1950 Age: 68 y.o. :[id number]:Reyes Carlin is 68 y.o. male Who is Nonverbal; appearing comfortable.Wearing O2 NC, on nightly BIPAP.Pt presented from [facility] to the ED, with medical history of Dysphagia ,s/p surgical placement of peg on 11/17/18, severe intellectual disability, Chronic respiratory failure, large Hiatal Hernia, hyperparathyroid unspecified,pe rsonal h/o pulmonary embolus, anxiety disorder, kyphosis and schizophrenia. Pt is nonverbal at baseline and is unable to provide a history.Per intermediate trans cristina records, at 6 AM, patient was found Hypoxic, with O2SAT of 87 % on O2 NC 4 L PM, heart zkch116 BPM, blood pressure of 105/73, respiratoryrate of [...] t left lung process is seen. Sodium jssxu527.ABG with pH 7.46/53/66/38 O2 SA T 95 [...] in the axial, sagittal and coronal plane.Utilizing curb supervisor algorithm the examination w as performed to [...] CARLIN THIS IS AFINAL REPORT FROM IMAGING RESIDENTIAL SALES REPRESENTATIVE DATE OF SERVICE: 2018-12-18 01:22:40 IMAGES:555 EXAM: [...] 12/18/2018 04:49 GINA Verde Please call Imaging Canal Structure Operator [phone] with questions. This report was electronically signed by: Tala MENDEZ 12/18/2018 04: 50 AMCta Up Ext Lt W ContResult Date: 12/18/2018History: Arm claudication. FINDI NGS: CTA of the left upper extremity wasperformed helically from level of the shoulder through the fingers after theintravenous administration of 119 cc of Isovue. Sagittal, coronal, and 3-Dreconstructed images obtained on an [employer] workstation are submitted. Noprior studies are available [...] was injectedintravenously for the examinatio n. Utilizing curb supervisor algorithm theexamination was performed to optimize imaging [...] jocelyn riley on the table in the unphz-mfzn-menj decubitus position.CT scanning was perfo rmed location [...] location.Attempts were made to pass an 8 Emirati pigtail catheter thr ough this location.However, patient [...] chloride (MBP/ADV) 100mL MBP 3.375 g IntraVENous B2PMfrkufhqxj/Plan:Hospital Problems Da te Reviewed: 01/14/2019 Codes Class [...] Supporting Document(s ) ID Date Data Source [id number] 01/18/2019 02:04:12 PM EDT [facility] Problem: Falls - Risk ofGoal: *Absence [...] Supporting Document(s ) ID Date Data Source [id number] 01/18/2019 12:56:02 PM EDT [facility] PULMONARY/ CCM- Consult NotePatient: Ivelisse Carlin [...] Sig Start Date End Date Taking? [facility]izing [facility] lovir ([employer]) 1 gram tablet Take [...] E) 250 mg/5 mL (5 mL) oral xjctntmi771 mg, 750 mg, Oral, BID, [place] [...] 01/17/19 07 - 65801/18/19699 - 01/19/19 0659Shift 4378-5221 9168-3729 24 Hour To krystian 9217-2025 2636-2685 24 Hour TotalINTAKEI.V.(mL/kg/hr) 100(0.1) 100( 0.1) Volume (piperacillin-tazobactam (ZOSYN) 3.375 g in 0.9% sodium chloride(MBP/ADV) 100 mL MBP) 100 100NG/GT [phone] Water Flush Volume (mL) (PEG/Gastrostomy Tube) 300 [...] images were obtained and reviewed on a [employer] d viewingworkstation and directly supervised. Contrast: A [...] MDOctober 2018The billing code submitted in associ atcarteret health care with this evaluation also includes thetime to review patient's prior record s, communicate with the physician team,obtain corroborating data, and discuss the risk and benefits of the proposedmanagement plan with the patient and their family >30 mi nutes. Name Value Range Interpretation Code Description Data Harriett rce(s) Supporting Document(s ) ID Date Data Source [id number] 01/18/2019 09:57:04 AM EDT [facility] ID Progress Note01/18/2019Subjective:Siri ent with mental retardation,recurrent aspiration pneumonia.on BIPAPNo NEW even t overnightNon verbal,unable to provide history.No events over nightAfebrileWbc within normal limitCultures negativeObjective:Vitals:Patient Vitals for the past 24 hrs: BP Temp Pulse Resp BmW99601/18/19 0804 - - - - 96 %01/18/19 [...] Supporting Document(s ) ID Date Data Source [id number] 01/18/2019 08:52:27 AM EDT [facility] Progress NotePatient: Evelio Carlin Sex: male DOA: 01/10/2019Date of : 1950 Age: 68 y.o. :[id number]:Reyes Carlin is 68 y.o. male Who is more awake and alert. He is appearingcomfortable. He is pulling off his nasal canula. The RN is requestingrestraints.Will order Mitts for restraints.Pt Presented to the ED from [facility] with medical history of Dysphagia ,s/p surgical placement of peg on 11/17/18, severe intellectual disability,Chronic respiratory failure, large Hiatal Hernia, hyperparathyroid unspecified,personal h/ o pulmonary embolus, anxiety disorder, kyphosis and schizophrenia. Ptis nonverb al at baseline and is unable to provide a history.Per intermediate transfer record s, at 6 AM, patient [...] t left lung process is seen. Sodium gfoxr980.ABG with pH 7.46/53/66/38 O2 SA T 95 [...] FIO2 in the last 72 hours.CULTURE, BLOOD [[id number]] (Order [id number])MicrobiologyD ate: 01/10/2019 Department: [facility] Released By/Authorizing: Wes Romero MD (auto-released)Specimen Information: Blood Component Value Flag Ref Range Uni ts StatusSpecial Requests: PreliminaryNO SPECIAL REQUESTSCulture result: NO GROWT H 3 DAYSCULTURE, BLOOD [[id number]] (Order [id number])MicrobiologyDate: 01/10/2019 De partment: [facility] Released By/Authorizing: Wes Romero MD (a uto-released)Specimen Information: Blood Component Value Flag Ref Range Units Sta tusSpecial Requests: PreliminaryNO SPECIAL REQUESTSCulture result: NO GROWT H 3 DAYSCULTURE, URINE [[id number]] (Order [id number])MicrobiologyDate: 01/10/2019 De partment: [facility] [...] in the axial, sagittal and coronal plane.Utilizing curb supervisor algorithm the examination w as performed to [...] CARLIN THIS IS AFINAL REPORT FROM IMAGING RESIDENTIAL SALES REPRESENTATIVE DATE OF SERVICE: 2018-12-18 01:22:40 IMAGES:555 EXAM: [...] 12/18/2018 04:49 EST M.D. Please call Imaging Canal Structure Operator [phone] with questions. This report was electronically signed by: Tala MENDEZ 12/18/2018 04: 50 AMCta Up Ext Lt W ContResult Date: 12/18/2018History: Arm claudication. FINDI NGS: CTA of the left upper extremity wasperformed helically from level of the shoulder through the fingers after theintravenous administration of 119 cc of Isovue. Sagittal, coronal, and 3-Dreconstructed images obtained on an [employer] workstation are submitted. Noprior studies are available [...] placed on the t able in the anyrt-ohvp-sxif decubitus position.CT scanning was performed locat ion [...] location.Attempts were made to pass an 8 Emirati pigtail catheter throug h this location.However, patient [...] mittsContinue with bolus TF for [facility] Frankel [facility] 2018Time: 11:49 PM Name Value Range Interpretation Code Description Data Harriett rce(s) Supporting Document(s ) ID Date Data Source [id number] 01/18/2019 07:22:47 AM EDT [facility] Review BIPAP settings, alarms and skin a dhesive With next shift RT Mayito. Name Value Range Interpretation Code Description Data Harriett rce(s) Supporting Document(s ) ID Date Data Source [id number] 01/18/2019 05:14:36 AM EDT [facility] Problem: Falls - Risk ofGoal: *Absence [...] Supporting Document(s ) ID Date Data Source [id number] 01/18/2019 06:43:44 AM EDT [facility] Name Value Range Interpretation Description Data Sup porting Code Source(s) Document(s ) Leukocytes 7.6 K/uL 4.8-10.6 [facility] - [#/volume] in Good Blood by [facility] Erythrocytes 3.48 4.70-6.0 Below low normal [facility] - [#/volume] in M/uL 0 Good Blood by [facility] Automated [facility] Hemoglobin 11.5 14.0-18. Below low normal [facility] - [Mass/volume] in g/dL 0 Good Blood [facility] Hematocrit 35.4 % 42.0-52. Below low normal [facility] - [Volume 0 Good Fraction] of [facility] Blood by Hospital Automated count Erythrocyte mean 101.7 FL 81.0-94. Above high normal [facility] - corpuscular 0 Good volume [Entitic [facility] volume] by Hospital Automated count Erythrocyte mean 33.0 PG 27.0-35. [facility] - corpuscular 0 Good hemoglobin [facility] [Entitic mass] [facility] by Automated count Erythrocyte mean 32.5 30.7-37. [facility] - corpuscular g/dL 3 Good hemoglobin [facility] [Mass/volume] by Automated count Erythrocyte 16.2 % 11.5-14. Above high normal [facility] - distribution 0 Good width [Ratio] by [facility] Automated count [facility] Platelets 340 K/uL 130-400 [facility] - [#/volume] in [facility] Blood by [facility] Automated count [facility] Platelet mean 9.2 FL 9.2-11.8 [facility] - volume [Entitic Good volume] in [facility] by Automated Hospital count Segmented 62 % 48.0-72. [facility] - neutrophils/100 [address] [facility] Lymphocytes/100 20 % 18.0-40. [facility] - leukocytes in 0 [facility] Monocytes/100 15 % 2.0-12.0 Above high normal [facility] - leukocytes in [facility] Eosinophils/100 3 % 0.0-7.0 [facility] - leukocytes in [facility] Basophils/100 0 % 0.0-3.0 [facility] - leukocytes in [facility] Segmented 4.5 K/UL 1.5-6.6 [facility] - neutrophils Good [#/volume] in [facility] Lymphocytes 1.6 K/UL 1.5-3.5 [facility] - [#/volume] in [facility] Monocytes 1.1 K/UL 0.0-1.0 Above high normal [facility] - [#/volume] in [facility] Eosinophils 0.2 K/UL 0.0-0.7 [facility] - [#/volume] in [facility] Basophils 0.0 K/UL 0.0-0.1 [facility] - [#/volume] in [facility] Differential [facility] - cell count [facility] method [facility] Immature 2 % 0.0-2.0 [facility] - granulocytes/100 Good leukocytes in [facility] Automated count ID Date Data Source [id number] 01/18/2019 05:21:17 AM EDT [facility] Name Value Range Interpretation Description Data Sup porting Code Source(s) Document(s ) Sodium 131 136-145 Below low normal [facility] - Good [Moles/volume] mmol/L [facility] in Serum or Hospital Plasma Potassium 4.4 3.5-5.1 [facility] - Good [Moles/volume] mmol/L [facility] in Serum or Hospital Plasma Chloride 92 98-107 Below low normal [facility] [Moles/volume] mmol/L [facility] in Serum or Hospital Plasma Carbon 34 21-32 Above high normal [facility] dioxide, total mmol/L [facility] [Moles/volume] Hospital in Serum or Plasma Anion gap in 10 10-20 [facility] Serum or mmol/L [facility] Plasma Hospital Glucose 85 mg/dL 74-106 [facility] [Mass/volume] [facility] in Serum or Hospital Plasma Urea nitrogen 11 mg/dL 7-18 [facility] [Mass/volume] [facility] in Serum or Hospital Plasma Creatinine 0.37 0.70-1.3 Below low normal [facility] [Mass/volume] mg/dL 0 [facility] in Serum or Hospital Plasma Glomerular >60 [facility] filtration [facility] rate/1.73 sq M Hospital predicted among blacks [Volume Rate/Area] in Serum or Plasma by Creatinine-bas ed formula (MDRD) Glomerular >60 [facility] filtration [facility] rate/1.73 sq M Hospital predicted among non-blacks [Volume Rate/Area] in Serum or Plasma by Creatinine-bas ed formula (MDRD) Calcium 9.8 8.5-10.1 [facility] [Mass/volume] mg/dL [facility] in Serum or Hospital Plasma Phosphate 2.0 2.5-4.9 Below low normal [facility] [Mass/volume] mg/dL [facility] in Serum or Hospital Plasma Albumin 1.9 g/dL 3.5-4.7 Below low normal [facility] [Mass/volume] [facility] in Serum or Hospital Plasma by Bromocresol purple (BCP) dye binding method ID Date Data Source [id number] 01/18/2019 05:21:17 AM EDT [facility] Name Value Range Interpretation Description Data Sup porting Code Source(s) Document(s ) Magnesium 2.0 mg/dL 1.6-2.6 [facility] [Mass/volume] [facility] in Serum or Hospital Plasma ID Date Data Source [id number] 01/17/2019 07:18:47 PM EDT [facility] Bedside and Verbal shift change report carol pham to [facility], Ronald Rodríguez RN(oncoming nurse) by Yuki Ohara RN (offgo ing nurse). Report includedthe following information SBAR, Kardex, Intake/Output, MAR and Recent Results. Name Value Range Interpretation Code Description Data Harriett rce(s) Supporting Document(s ) ID Date Data Source [id number] 01/17/2019 02:19:48 PM EDT [facility] Progress NotePatient: Evelio Carlin Sex: male DOA: 01/10/2019Date of : 1950 Age: 68 y.o. :[id number]:Reyes Carlni is 68 y.o. male appearing comfortable.Wearing O2 NC, on nightly BI PAP.Pt presented to the ED from [facility] with medical history of Dysphagia ,s/p surgi inez placement of peg on 11/17/18, severe intellectual disability,Chronic respira tory failure, large Hiatal Hernia, hyperparathyroid unspecified,personal h/ o pulmonary embolus, anxiety disorder, kyphosis and schizophrenia. Ptis nonverb al at baseline and is unable to provide a history.Per intermediate transfer record s, at 6 AM, patient [...] t left lung process is seen. Sodium mexwd523.ABG with pH 7.46/53/66/38 O2 SA T 95 [...] FIO2 in the last 72 hours.CULTURE, BLOOD [[id number]] (Order [id number])MicrobiologyDate: 01/10/2019 Department: [facility] Med Surg Released By/ Authorizing: Wes Romero MD (auto-released)Specimen Information: Blo od Component Value Flag Ref Range Units StatusSpecial Requests: FinalNO SPE CIAL REQUESTSCulture result: NO GROWTH 5 DAYSCULTURE, BLOOD [[id number]] (Order [id number])MicrobiologyDate: 01/10/2019 Department: [facility] Med Surg Released By/Authorizing: Wes Romero MD (auto-released)Specimen Information: Blo od Component Value Flag Ref Range Units StatusSpecial Requests: FinalNO SPE CIAL REQUESTSCulture result: NO GROWTH 5 DAYSCULTURE, URINE [[id number]] (Order [id number])MicrobiologyDate: 01/10/2019 Department: [facility] Med Surg Released By/Authorizing: Wes Romero [...] the axial, sagittal and coronal plane.Utiliz ing curb supervisor algorithm the examination was performed to optimizeimaging [...] Chest Wo ContResult Date: 12/18/2018Referring Physi chaya: KRYSITAN MONAE Patient Name: EVELIO CARLIN THIS IS AFINAL REPORT FROM KATJA BERGER RESIDENTIAL SALES REPRESENTATIVE DATE OF SERVICE: 2018-12-18 01:22:40 IMAGES:555 EXAM: [...] 12/18/2018 04:49 GINA Verde Please call Imaging Canal Structure Operator [phone] with questions. This report was electronically signed by: Tala MENDEZ 12/18/2018 04: 50 AMCta Up Ext Lt W ContResult Date: 12/18/2018History: Arm claudication. FINDI NGS: CTA of the left upper extremity wasperformed helically from level of the shoulder through the fingers after theintravenous administration of 119 cc of Isovue. Sagittal, coronal, and 3-Dreconstructed images obtained on an [employer] workstation are submitted. Noprior studies are available [...] was injectedintravenously for the examinatio n. Utilizing curb supervisor algorithm theexamination was performed to optimize imaging [...] jocelyn riley on the table in the hnmhy-wscs-bydg decubitus position.CT scanning was perfo rmed location [...] location.Attempts were made to pass an 8 Emirati pigtail catheter thr ough this location.However, patient [...] chloride (MBP/ADV) 100mL MBP 3.375 g IntraVENous K6MUzafkivgpj/Plan:Hospital Problems Da te Reviewed: 01/14/2019 Codes Class [...] Supporting Document(s ) ID Date Data Source [id number] 01/17/2019 02:08:54 PM EDT [facility] PULMONARY/ CCM- Consult NotePatient: Ivelisse Carlin [...] 250 mg/5 mL (5 mL) oral solut ufz305 mg, 750 mg, Oral, BID, [place] [...] 0659 01/17/19 0 700 - 01/18/19 0659Shift 8441-6594 9436-3527 24 Hour Total 8165-9989 3630-7556 24 Tammy r TotalINTAKEI.V.(mL/kg/hr) 200(0.3) 200(0.1) 100 100 Volume (piperacillin- tazobactam (ZOSYN) 3.375 g in 0.9% sodium chloride(MBP/ADV) 100 mL MBP) 200 200 1 00 100NG/GT 8064 747 2244 920 920 Water Flush Volume (mL) (PEG/Gastrostomy Tube) 200 200 400 200 200 Medication Volume (PEG/Gastrostomy Tube) 380 120 500 480 480 Intake (ml) (PEG/Gastrostomy Tube) 220 160 0799 240 240Shift Total(mL/kg) 1400 (24.8) 800(14.2) 2200(39) [...] images were obtained and reviewed on a [employer] d viewingworkstation and directly supervised. Contrast: A [...] Hamilton MDOctober 2018The billing code submitted in [facility] with this evaluation also includes thetime to review patient's prior record s, communicate with the physician team,obtain corroborating data, and discuss the risk and benefits of the proposedmanagement plan with the patient and their family >30 mi nutes. Name Value Range Interpretation Code Description Data Harriett rce(s) Supporting Document(s ) ID Date Data Source [id number] 01/17/2019 11:06:25 AM EDT [facility] Progress NotePatient: Evelio Carlin Sex: male DOA: 01/10/2019Date of : 1950 Age: 68 y.o. :[id number]:Reyes Carlin is 68 y.o. male Who is more awake and alert. He is appearingcomfortable. He is pulling off his nasal canula. The RN is requestingrestraints.Will order Mitts for restraints.Pt Presented to the ED from [facility] with medical history of Dysphagia ,s/p surgical placement of peg on 11/17/18, severe intellectual disability,Chronic respiratory failure, large Hiatal Hernia, hyperparathyroid unspecified,personal h/ o pulmonary embolus, anxiety disorder, kyphosis and schizophrenia. Ptis nonverb al at baseline and is unable to provide a history.Per intermediate transfer record s, at 6 AM, patient [...] t left lung process is seen. Sodium ytlim138.ABG with pH 7.46/53/66/38 O2 SA T 95 [...] FIO2 in the last 72 hours.CULTURE, BLOOD [[id number]] (Order [id number])MicrobiologyDate: 2018 Department: [facility] Med Surg Released By/Authorizing: Wes Romero MD (a azo-released)Specimen Information: Blood Component Value Flag Ref Range Units Sta tusSpecial Requests: PreliminaryNO SPECIAL REQUESTSCulture result: NO GROWT H 3 DAYSCULTURE, BLOOD [[id number]] (Order [id number])MicrobiologyDate: 01/10/2019 De partment: [facility] Med Surg Released By/Authorizing: Wes Romero MD (a uto-released)Specimen Information: Blood Component Value Flag Ref Range Units Sta tusSpecial Requests: PreliminaryNO SPECIAL REQUESTSCulture result: NO GROWT H 3 DAYSCULTURE, URINE [[id number]] (Order [id number])MicrobiologyDate: 01/10/2019 De partment: [facility] Med Surg [...] in the axial, sagittal and coronal plane.Utilizing curb supervisor algorithm the examination w as performed to [...] CARLIN THIS IS AFINAL REPORT FROM IMAGING RESIDENTIAL SALES REPRESENTATIVE DATE OF SERVICE: 2018-12-18 01:22:40 IMAGES:555 EXAM: [...] 12/18/2018 04:49 GINA Verde Please call Imaging Canal Structure Operator [phone] with questions. This report was electronically signed by: Tala MENDEZ 12/18/2018 04: 50 AMCta Up Ext Lt W ContResult Date: 12/18/2018History: Arm claudication. FINDI NGS: CTA of the left upper extremity wasperformed helically from level of the shoulder through the fingers after theintravenous administration of 119 cc of Isovue. Sagittal, coronal, and 3-Dreconstructed images obtained on an [employer] workstation are submitted. Noprior studies are available [...] placed on the t able in the jmdwi-rtdo-nswg decubitus position.CT scanning was performed locat ion [...] location.Attempts were made to pass an 8 Emirati pigtail catheter throug h this location.However, patient [...] chloride (MBP/ADV) 100mL MBP 3.375 g IntraVENous [id number]/Plan:Hospital Problems Da te Reviewed: 01/14/2019 Codes Class [...] mittsContinue with bolus TF for Bao Frankel MDFormerly [facility] 2018Time: 11:49 PM Name Value Range Interpretation Code Description Data Harriett rce(s) Supporting Document(s ) ID Date Data Source [id number] 01/17/2019 09:46:15 AM EDT [facility] ID Progress Note01/17/2019Subjective:Siri ent with mental retardation,recurrent aspiration pneumonia.on BIPAPNo NEW even t overnightNon verbal,unable to provide history.AfebrileCultures negativeObjecti ve:Vitals:Patient Vitals for the past 24 hrs: BP Temp Pulse Resp OwU71101/17/19 0837 - - - - 95 %01/17/19 [...] chloride (MBP/ADV) 100mL MBP 3.375 g IntraVENous O9DRptr:R ecent Labs 01/16/1905WBC 5.9 6.7 5.7HGB 11.2* [...] COPD Plan:1. Continue IV z osyn.Monica Gomez MDFormerly [facility] 5, [id number] AM Name Value Range Interpretation Code Description Data Harriett rce(s) Supporting Document(s ) ID Date Data Source [id number] 01/17/2019 08:59:23 AM EDT [facility] Portable chest x-ray.PRIOR EXAM: X-ray HISTORY: [...] Supporting Document(s ) ID Date Data Source [id number] 01/17/2019 07:14:43 AM EDT [facility] Bedside and Verbal shift change report g iven to Teresa Ohara RN (oncomingnurse) by Ronald Montoya RN (offgoing nurse) . Report included the following information SBAR, Kardex, MARand Recent Results. Name Value Range Interpretation Code Description Data [facility] rce(s) Supporting Document(s ) ID Date Data Source [id number] 01/17/2019 07:04:33 AM EDT [facility] Name Value Range Interpretation Description Data Sup porting Code Source(s) Document(s ) Sodium 131 136-145 Below low normal [facility] [Moles/volume] mmol/L [facility] in Serum or Hospital Plasma Potassium 4.3 3.5-5.1 [facility] [Moles/volume] mmol/L [facility] in Serum or Hospital Plasma Chloride 93 98-107 Below low normal [facility] [Moles/volume] mmol/L [facility] in Serum or Hospital Plasma Carbon 37 21-32 Above high normal [facility] dioxide, total mmol/L [facility] [Moles/volume] Hospital in Serum or Plasma Anion gap in 6 mmol/L 10-20 Below low normal [facility] - Go od Serum or [facility] Plasma Hospital Glucose 78 mg/dL 74-106 [facility] [Mass/volume] [facility] in Serum or Hospital Plasma Urea nitrogen 8 mg/dL 7-18 [facility] [Mass/volume] [facility] in Serum or Hospital Plasma Creatinine 0.37 0.70-1.3 Below low normal [facility] [Mass/volume] mg/dL 0 [facility] in Serum or Hospital Plasma Glomerular >60 [facility] filtration [facility] rate/1.73 sq M Hospital predicted among blacks [Volume Rate/Area] in Serum or Plasma by Creatinine-bas ed formula (MDRD) Glomerular >60 [facility] filtration [facility] rate/1.73 sq M Hospital predicted among non-blacks [Volume Rate/Area] in Serum or Plasma by Creatinine-bas ed formula (MDRD) Calcium 9.1 8.5-10.1 [facility] [Mass/volume] mg/dL [facility] in Serum or Hospital Plasma Phosphate 2.5 2.5-4.9 [facility] [Mass/volume] mg/dL [facility] in Serum or Hospital Plasma Albumin 1.8 g/dL 3.5-4.7 Below low normal [facility] [Mass/volume] [facility] in Serum or Hospital Plasma by Bromocresol purple (BCP) dye binding method ID Date Data Source [id number] 01/17/2019 07:04:33 AM EDT [facility] Name Value Range Interpretation Description Data Sup porting Code Source(s) Document(s ) Magnesium 1.9 mg/dL 1.6-2.6 [facility] [Mass/volume] [facility] in Serum or Hospital Plasma ID Date Data Source [id number] 01/17/2019 06:51:10 AM EDT [facility] Name Value Range Interpretation Description Data Sup porting Code Source(s) Document(s ) Leukocytes 5.9 K/uL 4.8-10.6 [facility] - [#/volume] in Good Blood by [facility] Automated count [facility] Erythrocytes 3.37 4.70-6.0 Below low normal [facility] - [#/volume] in M/uL 0 Good Blood by [facility] Automated count [facility] Hemoglobin 11.2 14.0-18. Below low normal [facility] - [Mass/volume] in g/dL 0 Good Blood [facility] Hematocrit 34.1 % 42.0-52. Below low normal [facility] - [Volume 0 Good Fraction] of [facility] Blood by Hospital Automated count Erythrocyte mean 101.2 FL 81.0-94. Above high normal [facility] - corpuscular 0 Good volume [Entitic [facility] volume] by Hospital Automated count Erythrocyte mean 33.2 PG 27.0-35. [facility] - corpuscular 0 Good hemoglobin [facility] [Entitic mass] [facility] by Automated count Erythrocyte mean 32.8 30.7-37. [facility] - corpuscular g/dL 3 Good hemoglobin [facility] [Mass/volume] by Automated count Erythrocyte 16.3 % 11.5-14. Above high normal [facility] - distribution 0 Good width [Ratio] by [facility] Automated count Hospital Platelets 299 K/uL 130-400 [facility] - [#/volume] in [facility] Blood by [facility] Automated count [facility] Platelet mean 8.6 FL 9.2-11.8 Below low normal [facility] - volume [Entitic Good volume] in [facility] by Automated Hospital count Segmented 57 % 48.0-72. [facility] - neutrophils/100 [address] Good [address] in [facility] Lymphocytes/100 24 % 18.0-40. [facility] - leukocytes in 0 [facility] Monocytes/100 15 % 2.0-12.0 Above high normal [facility] - leukocytes in [facility] Eosinophils/100 4 % 0.0-7.0 [facility] - leukocytes in [facility] Basophils/100 0 % 0.0-3.0 [facility] - leukocytes in [facility] Segmented 3.2 K/UL 1.5-6.6 [facility] - neutrophils Good [#/volume] in [facility] Lymphocytes 1.4 K/UL 1.5-3.5 Below low normal [facility] - [#/volume] in [facility] Monocytes 0.9 K/UL 0.0-1.0 [facility] - [#/volume] in [facility] Eosinophils 0.2 K/UL 0.0-0.7 [facility] - [#/volume] in [facility] Basophils 0.0 K/UL 0.0-0.1 [facility] - [#/volume] in [facility] Differential [facility] - cell count [facility] method [facility] Immature 3 % 0.0-2.0 Above high normal [facility] - granulocytes/100 Good leukocytes in [facility] Automated count ID Date Data Source [id number] 01/16/2019 11:26:22 PM EDT [facility] Problem: Falls - Risk ofGoal: *Absence [...] Name Value Range Interpretation Code Description [facility] Document(s ) ID Date Data Source [id number] 01/16/2019 07:12:10 PM EDT [facility] Bedside and Verbal shift change report g ankit to Ronald Montoya RN(oncoming nurse) by Yuki Ohara RN (offgo ing nurse). Report includedthe following information SBAR, Kardex, Intake/Output, MAR and Recent Results. Name Value Range Interpretation Code Description Data [facility](s) Supporting Document(s ) ID Date Data Source [id number] 01/16/2019 02:35:09 PM EDT [facility] Progress NoteMID-COUNTY PULMONARY ASSOC. ,P.C.Krystian Monae MD., F.CGualbertoC.P.Stella Hamilton MD., F.C.CGualbertoP. [address] [place] [address] [place], [place] [id number] [phone]: Evelio Carlin Sex: male DOA: [...] 24 hrs : BP Temp Pulse Resp HhL31701/16/19 0724 114/66 96.8 F (36 C) 80 [...] Component Value Units Date/Patria e CULTURE, BLOOD [[id number]] Collected: 01/10/19 0755 Order Status: Completed S pecimen: Blood Updated: 01/15/19837 Special Requests: NO SPECIAL REQUESTS C ulture result: NO GROWTH 5 DAYS CULTURE, BLOOD [[id number]] Collected: 01/10/19 0 740 Order Status: Completed Specimen: Blood Updated: 01/15/19837 Special Request s: NO SPECIAL REQUESTS Culture result: NO GROWTH 5 DAYS CULTURE, URINE [[id number]] Collected: 01/10/1958 Order Status: Completed Specimen: Urine from [facility] Updated: Special Requests: NO SPECIAL REQUESTS Culture result: NO GROWTH 1 DAY CULTURE, BLOOD [[id number]] Collected: 01/10/19 0800 Order Status: Canceled Specimen: [...] the axial, sagittal and coronal plane.Utiliz ing curb supervisor algorithm the examination was performed to optimizeimaging [...] THIS IS AFINAL REPORT FROM KATJA BERGER RESIDENTIAL SALES REPRESENTATIVE DATE OF SERVICE: 2018-12-18 01:22:40 IMAGES:555 EXAM: [...] 12/18/2018 04:49 GINA Verde Please call Imaging Canal Structure Operator [phone] with questions. This report was electronically signed by: Tala MENDEZ 12/18/2018 04: 50 AMCta Up Ext Lt W ContResult Date: 12/18/2018History: Arm claudication. FINDI NGS: CTA of the left upper extremity wasperformed helically from level of the shoulder through the fingers after theintravenous administration of 119 cc of Isovue. Sagittal, coronal, and 3-Dreconstructed images obtained on an [employer] workstation are submitted. Noprior studies are available [...] was injectedintravenously for the examinatio n. Utilizing curb supervisor algorithm theexamination was performed to optimize imaging [...] jocelyn riley on the table in the zvrlc-qtnx-gzkx decubitus position.CT scanning was perfo rmed location [...] location.Attempts were made to pass an 8 Emirati pigtail catheter thr ough this location.However, patient [...] (MBP/ADV) 100mL MBP 3.375 g In traVENous [id number] Problems: Acute respiratory failure with hypoxia (HCC) [...] Supporting Document(s ) ID Date Data Source [id number] 01/16/2019 01:59:18 PM EDT [facility] ID Progress Note01/16/2019Subjective:Siri ent with mental retardation,recurrent aspiration pneumonia.on BIPAPNon verbal, unable to provide history.AfebrileCultures negativeObjective:Vitals:Patient Vitals for the past 24 hrs: BP Temp Pulse Resp LjO45401/16/19 0724 114/66 96.8 F (36 C) 80 [...] (MBP/ADV) 100mL MBP 3.375 g In traVENous V7QRdbx:Recent Labs 01/15/1905WBC 6.7 5.7 4.4 *HGB 11.0* [...] Name Value Range Interpretation Code Description Data [facility] rce(s) Supporting Document(s ) ID Date Data Source [id number] 01/16/2019 01:57:09 PM EDT [facility] ID Progress Note01/15/2019Subjective:Siri ent with mental retardation,recurrent aspiration pneumonia.Non verbal,unable t o provide history.AfebrileCultures negativeNo new events..Objective:Vitals:Patient Vit als for the past 24 hrs: BP Temp Pulse Resp NbH26601/15/19 0745 121/68 97.6 F (36.4 C) 79 [...] chloride (MBP/ADV) 100mL MBP 3.375 g IntraVENous R5YQtyj:R ecent Labs 01/14/1906WBC 5.7 4.4* 5.2HGB 11.6* [...] was injectedintravenously for the examinatio n. Utilizing curb supervisor algorithm theexamination was performed to optimize imaging [...] Supporting Document(s ) ID Date Data Source [id number] 01/16/2019 12:49:39 PM EDT [facility] Progress NotePatient: Evelio Carlin Sex: male DOA: 01/10/2019Date of : 1950 Age: 68 y.o. :[id number]:Reyes Carlin is 68 y.o. male Who is more awake and alert. He is appearingcomfortable. He is pulling off his nasal canula. The RN is requestingrestraints.Will order Mitts for restraints.Pt Presented to the ED from [facility] with medical history of Dysphagia ,s/p surgical placement of peg on 11/17/18, severe intellectual disability,Chronic respiratory failure, large Hiatal Hernia, hyperparathyroid unspecified,personal h/ o pulmonary embolus, anxiety disorder, kyphosis and schizophrenia. Ptis nonverb al at baseline and is unable to provide a history.Per intermediate transfer record s, at 6 AM, patient [...] t left lung process is seen. Sodium ahzgp684.ABG with pH 7.46/53/66/38 O2 SA T 95 [...] 34.1* 35.3* 31.1*PLT 266 282 239Recent Labs 01/15/1905382890UE 133* 134* 137K 4.2 4.2 4. 1CL 95* 94* 99CO2 37* 32 36*GLU 119* 77 112*BUN 10 9 8CREA 0.52* 0.37* 0.38*CA 9 .5 8.9 8.4*MG 2.1 2.0 1.9PHOS 2.5 2.9 3.4ALB 1.8* 2.0* 1.7*No results for input(s): P H, PCO2, PO2, HCO3, FIO2 in the last 72 hours.CULTURE, BLOOD [[id number]] (Order [id number])MicrobiologyDate: 01/10/2019 Department: [facility] Med Surg Released By/ Authorizing: Wes Romero MD (auto-released)Specimen Information: Blo od Component Value Flag Ref Range Units StatusSpecial Requests: Preliminary NO SPECIAL REQUESTSCulture result: NO GROWTH 3 DAYSCULTURE, BLOOD [[id number]] (Order [id number])MicrobiologyDate: 01/10/2019 Department: [facility] Med Surg Released By/ Authorizing: Wes Romero MD (auto-released)Specimen Information: Blo od Component Value Flag Ref Range Units StatusSpecial Requests: Preliminary NO SPECIAL REQUESTSCulture result: NO GROWTH 3 DAYSCULTURE, URINE [[id number]] (Order [id number])MicrobiologyDate: 01/10/2019 Department: [facility] Med Surg Released By/ Authorizing: Wes [...] the axial, sagittal and coronal plane.Utiliz ing curb supervisor algorithm the examination was performed to optimizeimaging [...] THIS IS AFINAL REPORT FROM KATJA BERGER RESIDENTIAL SALES REPRESENTATIVE DATE OF SERVICE: 2018-12-18 01:22:40 IMAGES:555 EXAM: [...] 12/18/2018 04:49 GINA Verde Please call Imaging Canal Structure Operator [phone] with questions. This report was electronically signed by: Tala MENDEZ 12/18/2018 04: 50 AMCta Up Ext Lt W ContResult Date: 12/18/2018History: Arm claudication. FINDI NGS: CTA of the left upper extremity wasperformed helically from level of the shoulder through the fingers after theintravenous administration of 119 cc of Isovue. Sagittal, coronal, and 3-Dreconstructed images obtained on an [employer] workstation are submitted. Noprior studies are available [...] placed on the t able in the kgkdg-gody-ncji decubitus position.CT scanning was performed locat ion [...] location.Attempts were made to pass an 8 Emirati pigtail catheter throug h this location.However, patient [...] chloride (MBP/ADV) 100mL MBP 3.375 g IntraVENous Z9ZUugltdspbl/Plan:Hospital Problems Da te Reviewed: 01/14/2019 Codes Class [...] Supporting Document(s ) ID Date Data Source [id number] 01/16/2019 07:39:57 AM EDT [facility] Bedside and Verbal shift change report g iven to Teresa Ohara RN (oncomingnurse) by Ronald Montoya RN (offgoing nurse) . Report included the following information SBAR, Kardex, MARand Recent Results. Name Value Range Interpretation Code Description Data Harriett rce(s) Supporting Document(s ) ID Date Data Source [id number] 01/16/2019 06:25:54 AM EDT [facility] Name Value Range Interpretation Description Data Sup porting Code Source(s) Document(s ) Leukocytes 6.7 K/uL 4.8-10.6 [facility] - [#/volume] in Good Blood by [facility] Erythrocytes 3.35 4.70-6.0 Below low normal [facility] - [#/volume] in M/uL 0 Good Blood by [facility] Hemoglobin 11.0 14.0-18. Below low normal [facility] - [Mass/volume] in g/dL 0 [facility] Blood [facility] Hematocrit 34.1 % 42.0-52. Below low normal [facility] - [Volume 0 Good Fraction] of Zoroastrianism Blood by [facility] Automated count Erythrocyte mean 101.8 FL 81.0-94. Above high normal [facility] - corpuscular 0 Good volume [Entitic Zoroastrianism volume] by [facility] Automated count Erythrocyte mean 32.8 PG 27.0-35. [facility] - corpuscular 0 Good hemoglobin Zoroastrianism [Entitic mass] [facility] by Automated count Erythrocyte mean 32.3 30.7-37. [facility] - corpuscular g/dL 3 Good hemoglobin [facility] [Mass/volume] by Automated count Erythrocyte 16.5 % 11.5-14. Above high normal [facility] - distribution 0 Good width [Ratio] by [facility] Automated count Hospital Platelets 266 K/uL 130-400 [facility] - [#/volume] in [facility] Blood by [facility] Automated count Hospital Platelet mean 8.7 FL 9.2-11.8 Below low normal [facility] - volume [Entitic Good volume] in [facility] by Automated Hospital count Segmented 60 % 48.0-72. [facility] - neutrophils/100 0 Good leukocytes in [facility] Lymphocytes/100 24 % 18.0-40. [facility] - leukocytes in 0 [facility] Monocytes/100 13 % 2.0-12.0 Above high normal [facility] - leukocytes in [facility] Eosinophils/100 3 % 0.0-7.0 [facility] - leukocytes in [facility] Basophils/100 0 % 0.0-3.0 [facility] - leukocytes in [facility] Segmented 3.8 K/UL 1.5-6.6 [facility] - neutrophils Good [#/volume] in [facility] Lymphocytes 1.6 K/UL 1.5-3.5 [facility] - [#/volume] in [facility] Monocytes 0.9 K/UL 0.0-1.0 [facility] - [#/volume] in [facility] Eosinophils 0.2 K/UL 0.0-0.7 [facility] - [#/volume] in [facility] Basophils 0.0 K/UL 0.0-0.1 [facility] - [#/volume] in [facility] Differential [facility] - cell count [facility] method [facility] Immature 2 % 0.0-2.0 [facility] - granulocytes/100 Good leukocytes in [facility] Automated count ID Date Data Source [id number] 01/16/2019 06:20:39 AM EDT [facility] - [facility] Name Value Range Interpretation Description Data Sup porting Code Source(s) Document(s ) Sodium 133 136-145 Below low normal [facility] - Good [Moles/volume] mmol/L [facility]oroastrianism in Serum or Hospital Plasma Potassium 4.2 3.5-5.1 [facility] - Good [Moles/volume] mmol/L [facility]astrianism in Serum or Hospital Plasma Chloride 95 98-107 Below low normal [facility] - Good [Moles/volume] mmol/L [facility]rianism in Serum or Hospital Plasma Carbon 37 21-32 Above high normal [facility] - Good dioxide, total mmol/L [facility] [Moles/volume] Hospital in Serum or Plasma Anion gap in 5 mmol/L 10-20 Below low normal [facility] - Go od Serum or [facility] Plasma Hospital Glucose 119 74-106 Above high normal [facility] - Good [Mass/volume] mg/dL Zoroastrianism in Serum or Hospital Plasma Urea nitrogen 10 mg/dL 7-18 [facility] - Good [Mass/volume] Zoroastrianism in Serum or Hospital Plasma Creatinine 0.52 0.70-1.3 Below low normal [facility] - Good [Mass/volume] mg/dL 0 [facility]rianism in Serum or Hospital Plasma Glomerular >60 [facility] - Good filtration Zoroastrianism rate/1.73 sq M Hospital predicted among blacks [Volume Rate/Area] in Serum or Plasma by Creatinine-bas ed formula (MDRD) Glomerular >60 [facility] - Good filtration Zoroastrianism rate/1.73 sq M Hospital predicted among non-blacks [Volume Rate/Area] in Serum or Plasma by Creatinine-bas ed formula (MDRD) Calcium 9.5 8.5-10.1 [facility] - Good [Mass/volume] mg/dL Zoroastrianism in Serum or Hospital Plasma Phosphate 2.5 2.5-4.9 [facility] - Good [Mass/volume] mg/dL Zoroastrianism in Serum or Hospital Plasma Albumin 1.8 g/dL 3.5-4.7 Below low normal [facility] - Good [Mass/volume] Zoroastrianism in Serum or Hospital Plasma by Bromocresol purple (BCP) dye binding method ID Date Data Source [id number] 01/16/2019 06:20:39 AM EDT [facility] - [facility] Name Value Range Interpretation Description Data Sup porting Code Source(s) Document(s ) Magnesium 2.1 mg/dL 1.6-2.6 [facility] - Good [Mass/volume] Zoroastrianism in Serum or Hospital Plasma ID Date Data Source [id number] 01/16/2019 12:53:20 AM EDT [facility] Problem: Falls - Risk ofGoal: *Absence [...] Supporting Document(s ) ID Date Data Source [id number] 01/15/2019 07:43:21 PM EDT [facility] Bedside and Verbal shift change report g ankit botello JR, RN (oncoming nurse) by NANCY ASCENCIO (offgoing nurse). Repo rt included the following information SBAR,Kardex, MAR and Recent Results. Name Value Range Interpretation Code Description Data Harriett rce(s) Supporting Document(s ) ID Date Data Source [id number] 01/15/2019 06:32:22 PM EDT [facility] PULMONARY/ CCM- Consult NotePatient: Ivelisse Carlin [...] 1 59 01/15/19 0700 - 01/16/19 0659Shift 4400-0805 1185-0478 24 Hour To krystian 4353-6242 2536-5625 24 Hour TotalINTAKENG/GT 5563 594 7095 340 340 Water Flush Volume (mL) (PEG/Gastrostomy Tube) 300 100 400 100 100 Medication V olume (PEG/Gastrostomy Tube) 400 400 Intake (ml) (PEG/Gastrostomy Tube) 480 480 240 240Shift Total(mL/kg) 1180(20.9) 100(1.8) 1280(22.7) 340(6) 340(6)OUTPUTUrine(mL/ kg/hr) 325(0.5) 300(0.4) 625(0.5) 1700 1700 Urine Voided 039 470 0254 1700 Urine Output (mL) ([REMOVED] Urinary Catheter [...] Supporting Document(s ) ID Date Data Source [id number] 01/15/2019 12:42:10 PM EDT [facility] Problem: Falls - Risk ofGoal: *Absence [...] Name Value Range Interpretation Code Description Data [facility] rce(s) Supporting Document(s ) ID Date Data Source [id number] 01/15/2019 12:37:32 PM EDT [facility] Progress NotePatient: Evelio Carlin Sex: male DOA: 01/10/2019Date of : 1950 Age: 68 y.o. :[id number]:Reyes Carlin is 68 y.o. male appearing comfortable.Wearing O2 NC, on BIPAP over night..Pt presented to the ED from [facility] with medical history of Dysphagia ,s/p surgi inez placement of peg on 11/17/18, severe intellectual disability,Chronic respira tory failure, large Hiatal Hernia, hyperparathyroid unspecified,personal h/ o pulmonary embolus, anxiety disorder, kyphosis and schizophrenia. Ptis nonverb al at baseline and is unable to provide a history.Per intermediate transfer record s, at 6 AM, patient [...] in the axial, sagittal and coronal plane.Utilizing curb supervisor algorithm the examination w as performed to [...] CARLIN THIS IS AFINAL REPORT FROM IMAGING RESIDENTIAL SALES REPRESENTATIVE DATE OF SERVICE: 2018-12-18 01:22:40 IMAGES:555 EXAM: [...] 12/18/2018 04:49 GINA Verde Please call Imaging Canal Structure Operator [phone] with questions. This report was electronically signed [...] placed on the t able in the kduhw-bpop-wajn decubitus position.CT scanning was performed locat ion [...] location.Attempts were made to pass an 8 Emir[place] pigtail catheter throug h this location.However, patient [...] chloride (MBP/ADV) 100mL MBP 3.375 g IntraVENous Y5FBtacbyhgqj/Plan:Hospital Problems Da te Reviewed: 01/14/2019 Codes Class [...] Supporting Document(s ) ID Date Data Source [id number] 01/15/2019 11:43:33 AM EDT [facility] Problem: Nutrition DeficitGoal: *Optimiz e nutritional [...] Supporting Document(s ) ID Date Data Source [id number] 01/15/2019 11:43:10 AM EDT [facility] NUTRITIONFollow Up NoteSubjective: Pt to lerating [...] Name Value Range Interpretation Code Description Data [facility] rce(s) Supporting Document(s ) ID Date Data Source [id number] 01/15/2019 10:48:22 AM EDT [facility] CT CHEST W CONT F/UClinical data: R U L NODULE NEAR TRACHEA / BLOOD VESSEL.Priors: 01/10/2019.Technique: CT scan of the ches t was performed from the thoracic inlet to belowthe diaphragm following administrat ion of intravenous contrast. The acquisitiondata was reviewed in the axia l, sagittal and coronal plane. 100 cc of lowosmolar iodinated contrast-isovue 300 was injected intravenously for theexamination. Utilizing curb supervisor a lgorithm the examination was performed tooptimize [...] arterycal cifications noted. Atherosclerotic thoracic aorta without aneurysmaldilatation.[place] mikel left hemidiaphragm. There is a small [...] Supporting Document(s ) ID Date Data Source [id number] 01/15/2019 09:40:33 AM EDT [facility] Progress NotePatient: Evelio Carlin Sex: male DOA: 01/10/2019Date of : 1950 Age: 68 y.o. :[id number]:Reyes Carlin is 68 y.o. male Who is more awake and alert. He is appearingcomfortable. He is pulling off his nasal canula. The RN is requestingrestraints.Will order Mitts for restraints.Pt Presented to the ED from [facility] with medical history of Dysphagia ,s/p surgical placement of peg on 11/17/18, severe intellectual disability,Chronic respiratory failure, large Hiatal Hernia, hyperparathyroid unspecified,personal h/ o pulmonary embolus, anxiety disorder, kyphosis and schizophrenia. Ptis nonverb al at baseline and is unable to provide a history.Per intermediate transfer record s, at 6 AM, patient [...] t left lung process is seen. Sodium kntwo037.ABG with pH 7.46/53/66/38 O2 SA T 95 [...] FIO2 in the last 72 hours.CULTURE, BLOOD [[id number]] (Order [id number])MicrobiologyDate: 01/10/2019 Department: [facility] Med Surg Released By/ Authorizing: Wes Romero MD (auto-released)Specimen Information: Blo od Component Value Flag Ref Range Units StatusSpecial Requests: Preliminary NO SPECIAL REQUESTSCulture result: NO GROWTH 3 DAYSCULTURE, BLOOD [[id number]] (Order [id number])MicrobiologyDate: 01/10/2019 Department: [facility] Med Surg Released By/ Authorizing: Wes Romero MD (auto-released)Specimen Information: Blo od Component Value Flag Ref Range Units StatusSpecial Requests: Preliminary NO SPECIAL REQUESTSCulture result: NO GROWTH 3 DAYSCULTURE, URINE [[id number]] (Order [id number])MicrobiologyDate: 01/10/2019 Department: [facility] Med Surg Released By/ Authorizing: Wes [...] the axial, sagittal and coronal plane.Utiliz ing curb supervisor algorithm the examination was performed to optimizeimaging [...] CARLIN THIS IS AFINAL REPORT FROM [facility] RESIDENTIAL SALES REPRESENTATIVE DATE OF SERVICE: 2018-12-18 01:22:40 IMAGES:555 EXAM: [...] 12/18/2018 04:49 GINA Verde Please call Imaging Canal Structure Operator [phone] with questions. This report was electronically signed by: Tala MENDEZ 12/18/2018 04: 50 AMCta Up Ext Lt W ContResult Date: 12/18/2018History: Arm claudication. FINDI NGS: CTA of the left upper extremity wasperformed helically from level of the shoulder through the fingers after theintravenous administration of 119 cc of Isovue. Sagittal, coronal, and 3-Dreconstructed images obtained on an [employer] workstation are submitted. Noprior studies are available [...] placed on the t able in the pqnqp-ogjk-clry decubitus position.CT scanning was performed locat ion [...] location.Attempts were made to pass an 8 Emir[place] pigtail catheter throug h this location.However, patient [...] (FLUZONE HIGH-DOSE) injection 0.5 mL0.5 mL IntraMUSCular YAUN OR TO DISCHARGE albuterol-ipratropium (DUO-NEB) 2.5 MG-0.5 MG/3 ML 3 mL Nebul ization Q6H RT piperacillin-tazobactam (ZOSYN) 3.375 g in 0.9% sodium chloride (MBP/ADV) 100mL MBP 3.375 g IntraVENous [id number]/Plan:Hospital Problems Da te Reviewed: 01/14/2019 Codes Class [...] Supporting Document(s ) ID Date Data Source [id number] 01/15/2019 06:57:06 AM EDT [facility] Bedside and Verbal shift change report g iven to A Abilio RN (oncoming nurse)by Gaston Starr RN (offgoing nurse). Report include d the following information SBAR,Kardex and MAR. Name Value Range Interpretation Code Description Data Harriett rce(s) Supporting Document(s ) ID Date Data Source [id number] 01/15/2019 07:37:01 AM EDT [facility] Name Value Range Interpretation Description Data Sup porting Code Source(s) Document(s ) Sodium 134 136-145 Below low normal [facility] - Good [Moles/volume] mmol/L [facility]ism in Serum or Hospital Plasma Potassium 4.2 3.5-5.1 [facility] - Good [Moles/volume] mmol/L [facility]astrianism in Serum or Hospital Plasma Chloride 94 98-107 Below low normal [facility] - Good [Moles/volume] mmol/L [facility]astrianism in Serum or Hospital Plasma Carbon 32 21-32 [facility] - Good dioxide, total mmol/L [facility]ism [Moles/volume] Hospital in Serum or Plasma Anion gap in 12 10-20 [facility] - Good Serum or mmol/L [facility] Plasma Hospital Glucose 77 mg/dL 74-106 [facility] - Good [Mass/volume] Zoroastrianism in Serum or Hospital Plasma Urea nitrogen 9 mg/dL 7-18 [facility] - Good [Mass/volume] Zoroastrianism in Serum or Hospital Plasma Creatinine 0.37 0.70-1.3 Below low normal [facility] - Good [Mass/volume] mg/dL 0 Zoroastrianism in Serum or Hospital Plasma Glomerular >60 [facility] - Good filtration Zoroastrianism rate/1.73 sq M Hospital predicted among blacks [Volume Rate/Area] in Serum or Plasma by Creatinine-bas ed formula (MDRD) Glomerular >60 [facility] - Good filtration Zoroastrianism rate/1.73 sq M Hospital predicted among non-blacks [Volume Rate/Area] in Serum or Plasma by Creatinine-bas ed formula (MDRD) Calcium 8.9 8.5-10.1 [facility] - Good [Mass/volume] mg/dL Zoroastrianism in Serum or Hospital Plasma Phosphate 2.9 2.5-4.9 [facility] - Good [Mass/volume] mg/dL [facility]oroastrianism in Serum or Hospital Plasma Albumin 2.0 g/dL 3.5-4.7 Below low normal [facility] - Good [Mass/volume] Zoroastrianism in Serum or Hospital Plasma by Bromocresol purple (BCP) dye binding method ID Date Data Source [id number] 01/15/2019 07:37:01 AM EDT [facility] Name Value Range Interpretation Description Data Sup porting Code Source(s) Document(s ) Magnesium 2.0 mg/dL 1.6-2.6 [facility] - Good [Mass/volume] Zoroastrianism in Serum or Hospital Plasma ID Date Data Source [id number] 01/15/2019 07:20:59 AM EDT [facility] Name Value Range Interpretation Description Data Sup porting Code Source(s) Document(s ) Leukocytes 5.7 K/uL 4.8-10.6 [facility] - [#/volume] in Good Blood by [facility] Automated count Hospital Erythrocytes 3.48 4.70-6.0 Below low normal [facility] - [#/volume] in M/uL 0 Good Blood by [facility] Automated count Hospital Hemoglobin 11.6 14.0-18. Below low normal [facility] - [Mass/volume] in g/dL 0 Good Blood [facility] Hematocrit 35.3 % 42.0-52. Below low normal [facility] - [Volume 0 Good Fraction] of Zoroastrianism Blood by Hospital Automated count Erythrocyte mean 101.4 FL 81.0-94. Above high normal [facility] - corpuscular 0 Good volume [Entitic Zoroastrianism volume] by Hospital Automated count Erythrocyte mean 33.3 PG 27.0-35. [facility] - corpuscular 0 Good hemoglobin Zoroastrianism [Entitic mass] [facility] by Automated count Erythrocyte mean 32.9 30.7-37. [facility] - corpuscular g/dL 3 Good hemoglobin [facility] [Mass/volume] by Automated count Erythrocyte 16.8 % 11.5-14. Above high normal [facility] - distribution 0 Good width [Ratio] by [facility] Automated count Hospital Platelets 282 K/uL 130-400 [facility] - [#/volume] in Good Blood by [facility] count [facility] Platelet mean 8.7 FL 9.2-11.8 Below low normal [facility] - volume [Entitic Good volume] in Blood Z[facility]astrianism by Automated Hospital count Segmented 63 % 48.0-72. [facility] - neutrophils/100 0 Good leukocytes in [facility]rianism Blood [facility] Lymphocytes/100 24 % 18.0-40. [facility] - leukocytes in 0 [facility] Monocytes/100 9 % 2.0-12.0 [facility] - leukocytes in [facility] Eosinophils/100 4 % 0.0-7.0 [facility] - leukocytes in [facility] Basophils/100 0 % 0.0-3.0 [facility] - leukocytes in [facility] Segmented 3.5 K/UL 1.5-6.6 [facility] - neutrophils Good [#/volume] in [facility] Lymphocytes 1.3 K/UL 1.5-3.5 Below low normal [facility] - [#/volume] in [facility] Monocytes 0.5 K/UL 0.0-1.0 [facility] - [#/volume] in [facility] Eosinophils 0.3 K/UL 0.0-0.7 [facility] - [#/volume] in [facility] Basophils 0.0 K/UL 0.0-0.1 [facility] - [#/volume] in [facility] Differential [facility] - cell count [facility] Immature 1 % 0.0-2.0 [facility] - granulocytes/100 [facility] leukocytes in [facility] Automated count ID Date Data Source [id number] 01/15/2019 02:38:39 AM EDT [facility] Progressing slowly Name Value Range Interpretation Code Description [facility] Supporting Document(s ) ID Date Data Source [id number] 01/14/2019 07:55:05 PM EDT [facility] Bedside and Verbal shift change report carol Starr RN (oncoming nurse) Mely KNOX RN (offgoing nurse). Report in cluded the following informationSBAR, Kardex, MAR and Recent Results. Name Value Range Interpretation Code Description Data [facility] Supporting Document(s ) ID Date Data Source [id number] 01/14/2019 05:54:05 PM EDT [facility] ID Progress Note01/14/2019Subjective:Siri ent with mental retardation,recurrent aspiration pneumonia.Non verbal,unable t o provide history.AfebrileCultures negativeNo new events..Objective:Vitals:Patient Vit als for the past 24 hrs: BP Temp Pulse Resp SpO2 Jyukwe89/02/19 1550 101/51 96.9 F (36.1 C) 83 [...] chloride (MBP/ADV) 100mL MBP 3.375 g IntraVENous X3AZokz:R [facility] 01/14/1904WBC 4.4* 5.2 4.9HGB 10.4* [...] COPD Plan:1. Continue IV z osyn.Natasha Dudley MDKalkaska Memorial Health Centerober 20185:52 PM Name Value Range Interpretation Code Description Data Harriett rce(s) Supporting Document(s ) ID Date Data Source [id number] 01/14/2019 03:23:24 PM EDT [facility] Progress NoteMID-[facility] ,[facility].Krystian Monae MD., F.CGualbertoCGualbertoP.Stella Hamilton MD., F.CGualbertoCGualbertoP. [address] [place] [address] [place], [place] [id number] [phone]: Evelio Carlin Sex: male DOA: 01/10/2019Da te of : 1950 Age: 68 y.o. LOS: LOS: 4 daysSubjective:Mr. Gayla beltran is a 68 y.o. year old male who is being seen for ACUTEHYPERCAPNIC AND HYPOXIC RE SPIRATORY FAILURE .ASP. PNEUMONIA , COPD , WEAKNESS . PATENT IS BED RIDDENObjecti ve:Vital Signs:Patient Vitals for the past 24 hrs: BP Temp Pulse Resp SpO2 Hywgwl1001/14 1211 129/63 97 F (36.1 C) 75 [...] ue Date/Time GLU 112 (H) 01/14/2019 06:17 [email or web address] Results Procedure Component Value Units Date/Time CULTURE, BLOOD [[id number]] Col lected: 01/10/19 9706 Order Status: Completed Specimen: Blood Updated: 05/03 0816 Special Requests: NO SPECIAL REQUESTS Culture result: NO GROWTH 3 DA YS CULTURE, BLOOD [[id number]] Collected: 01/10/19 5547 Order Status: Completed S pecimen: Blood Updated: 01/13/19 0813 Special Requests: NO SPECIAL REQUESTS C ulture result: NO GROWTH 3 DAYS CULTURE, URINE [[id number]] Collected: 01/10/19 0 858 Order Status: Completed Specimen: Urine from Clean catch Updated: Special Requests: NO SPECIAL REQUESTS Culture result: NO GROWTH 1 DAY CULTURE, BLOOD [[id number]] Collected: 01/10/19 0800 Order Status: Canceled Specimen: [...] in the axial, sagittal and coronal plane.Utilizing curb supervisor algorithm the examination w as performed to [...] CARLIN THIS IS AFINAL REPORT FROM IMAGING RESIDENTIAL SALES REPRESENTATIVE DATE OF SERVICE: 2018-12-18 01:22:40 IMAGES:555 EXAM: [...] 12/18/2018 04:49 GINA Verde Please call Imaging Canal Structure Operator [phone] with questions. This report was electronically signed by: Tala MENDEZ 12/18/2018 04: 50 AMCta Up Ext Lt W ContResult Date: 12/18/2018History: Arm claudication. FINDI NGS: CTA of the left upper extremity wasperformed helically from level of the shoulder through the fingers after theintravenous administration of 119 cc of Isovue. Sagittal, coronal, and 3-Dreconstructed images obtained on an [employer] workstation are submitted. Noprior studies are available [...] placed on the t able in the uqtut-nbzv-hdde decubitus position.CT scanning was performed locat ion [...] location.Attempts were made to pass an 8 Emir[place] pigtail catheter throug h this location.However, patient [...] (MBP/ADV) 100mL MBP 3.375 g In traVENous [id number] Problems: Acute respiratory failure with hypoxia (HCC) [...] Supporting Document(s ) ID Date Data Source [id number] 01/14/2019 01:22:04 PM EDT [facility] Problem: Falls - Risk ofGoal: *Absence [...] Supporting Document(s ) ID Date Data Source [id number] 01/14/2019 10:03:14 AM EDT [facility] Progress NotePatient: Evelio Carlin Sex: male DOA: 01/10/2019Date of : 1950 Age: 68 y.o. :[id number]:Reyes Carlin is 68 y.o. male Who is more awake and alert. He is appearingcomfortable. He is pulling off his nasal canula. The RN is requestingrestraints.Will order Mitts for restraints.Pt Presented to the ED from [facility] with medical history of Dysphagia ,s/p surgical placement of peg on 11/17/18, severe intellectual disability,Chronic respiratory failure, large Hiatal Hernia, hyperparathyroid unspecified,personal h/ o pulmonary embolus, anxiety disorder, kyphosis and schizophrenia. Ptis nonverb al at baseline and is unable to provide a history.Per intermediate transfer record s, at 6 AM, patient [...] t left lung process is seen. Sodium sgbsa720.ABG with pH 7.46/53/66/38 O2 SA T 95 [...] in the last 72 tammy rs.CULTURE, BLOOD [[id number]] (Order [id number])MicrobiologyDate: 01/10/2019 De partment: [facility] Med Surg Released By/Authorizing: Wes Romero MD (a uto-released)Specimen Information: Blood Component Value Flag Ref Range Units Sta tusSpecial Requests: PreliminaryNO SPECIAL REQUESTSCulture result: NO GROWT H 3 DAYSCULTURE, BLOOD [[id number]] (Order [id number])MicrobiologyDate: 01/10/2019 De partment: [facility] Med Surg Released By/Authorizing: Wes Romero MD (a uto-released)Specimen Information: Blood Component Value Flag Ref Range Units Sta tusSpecial Requests: PreliminaryNO SPECIAL REQUESTSCulture result: NO GROWT H 3 DAYSCULTURE, URINE [[id number]] (Order [id number])MicrobiologyDate: 01/10/2019 De partment: [facility] Med Surg [...] in the axial, sagittal and coronal plane.Utilizing curb supervisor algorithm the examination w as performed to [...] CARLIN THIS IS AFINAL REPORT FROM IMAGING RESIDENTIAL SALES REPRESENTATIVE DATE OF SERVICE: 2018-12-18 01:22:40 IMAGES:555 EXAM: [...] 12/18/2018 04:49 GINA Verde Please call Imaging Canal Structure Operator [phone] with questions. This report was electronically signed by: Tala MENDEZ 12/18/2018 04: 50 AMCta Up Ext Lt W ContResult Date: 12/18/2018History: Arm claudication. FINDI NGS: CTA of the left upper extremity wasperformed helically from level of the shoulder through the fingers after theintravenous administration of 119 cc of Isovue. Sagittal, coronal, and 3-Dreconstructed images obtained on an [employer] workstation are submitted. Noprior studies are available [...] placed on the t able in the xmoqx-gtnv-ilia decubitus position.CT scanning was performed locat ion [...] location.Attempts were made to pass an 8 Emir[place] pigtail catheter throug h this location.However, patient [...] chloride (MBP/ADV) 100mL MBP 3.375 g IntraVENous F8JWhkwqzgoex/Plan:Hospital Problems Da te Reviewed: 01/12/2019 Codes Class [...] Supporting Document(s ) ID Date Data Source [id number] 01/14/2019 07:53:09 AM EDT [facility] Bedside and Verbal shift change report g iven to Shira Knox RN (oncomingnurse) by Marni Regalado RN (offgoing nurse). Re port included the followinginformation SBAR and Kardex. ' Name Value Range Interpretation Code Description Data Harriett rce(s) Supporting Document(s ) ID Date Data Source [id number] 01/14/2019 07:31:11 AM EDT [facility] Name Value Range Interpretation Description Data Sup porting Code Source(s) Document(s ) Leukocytes 4.4 K/uL 4.8-10.6 Below low normal [facility] - [#/volume] in Good Blood by [facility] Erythrocytes 3.02 4.70-6.0 Below low normal [facility] - [#/volume] in M/uL 0 Good Blood [facility] Hemoglobin 10.4 14.0-18. Below low normal [facility] - [Mass/volume] in g/dL 0 [facility] Blood [facility] Hematocrit 31.1 % 42.0-52. Below low normal [facility] - [Volume 0 Good Fraction] of [facility] Blood by Hospital Automated count Erythrocyte mean 103.0 FL 81.0-94. Above high normal [facility] - corpuscular 0 Good volume [Entitic Zoroastrianism volume] by Hospital Automated count Erythrocyte mean 34.4 PG 27.0-35. [facility] - corpuscular 0 Good hemoglobin Zoroastrianism [Entitic mass] [facility] by Automated count Erythrocyte mean 33.4 30.7-37. [facility] - corpuscular g/dL 3 Good hemoglobin [facility] concentration Hospital [Mass/volume] by Automated count Erythrocyte 17.0 % 11.5-14. Above high normal [facility] - distribution 0 Good width [Ratio] by [facility] Platelets 239 K/uL 130-400 [facility] - [#/volume] in Good Blood by [facility] Automated count [facility] Platelet mean 8.7 FL 9.2-11.8 Below low normal [facility] - volume [Entitic Good volume] in Blood [facility] by Automated Hospital count Segmented 59 % 48.0-72. [facility] - neutrophils/100 [address] in [facility] Lymphocytes/100 24 % 18.0-40. [facility] - leukocytes in 0 [facility] Blood [facility] Monocytes/100 11 % 2.0-12.0 [facility] - leukocytes in [facility] Blood [facility] Eosinophils/100 6 % 0.0-7.0 [facility] - leukocytes in [facility] Blood [facility] Basophils/100 0 % 0.0-3.0 [facility] - leukocytes in [facility] Blood [facility] Segmented 2.6 K/UL 1.5-6.6 [facility] - neutrophils Good [#/volume] in [facility] Lymphocytes 1.0 K/UL 1.5-3.5 Below low normal [facility] - [#/volume] in [facility] Monocytes 0.5 K/UL 0.0-1.0 [facility] - [#/volume] in [facility] Eosinophils 0.2 K/UL 0.0-0.7 [facility] - [#/volume] in [facility] Basophils 0.0 K/UL 0.0-0.1 [facility] - [#/volume] in [facility] Differential [facility] - cell count [facility] Immature 1 % 0.0-2.0 [facility] - granulocytes/100 [facility] leukocytes in [facility] by [facility] Automated count ID Date Data Source [id number] 01/14/2019 07:28:25 AM EDT [facility] Name Value Range Interpretation Description Data Sup porting Code Source(s) Document(s ) Magnesium 1.9 mg/dL 1.6-2.6 [facility] - Good [Mass/volume] [facility] in Serum or Hospital Plasma ID Date Data Source [id number] 01/14/2019 07:28:25 AM EDT [facility] Name Value Range Interpretation Description Data Sup porting Code Source(s) Document(s ) Sodium 137 136-145 [facility] - Good [Moles/volume] mmol/L [facility] in Serum or Hospital Plasma Potassium 4.1 3.5-5.1 [facility] - Good [Moles/volume] mmol/L [facility] in Serum or Hospital Plasma Chloride 99 98-107 [facility] - Good [Moles/volume] mmol/L [facility] in Serum or Hospital Plasma Carbon 36 21-32 Above high normal [facility] - Good dioxide, total mmol/L [facility] [Moles/volume] Hospital in Serum or Plasma Anion gap in 5 mmol/L 10-20 Below low normal [facility] - Go od Serum or [facility] Plasma Hospital Glucose 112 74-106 Above high normal [facility] - Good [Mass/volume] mg/dL [facility] in Serum or Hospital Plasma Urea nitrogen 8 mg/dL 7-18 [facility] - Good [Mass/volume] [facility] in Serum or Hospital Plasma Creatinine 0.38 0.70-1.3 Below low normal [facility] - Good [Mass/volume] mg/dL 0 [facility] in Serum or Hospital Plasma Glomerular >60 [facility] - Good filtration [facility]rianism rate/1.73 sq M Hospital predicted among blacks [Volume Rate/Area] in Serum or Plasma by Creatinine-bas ed formula (MDRD) Glomerular >60 [facility] - Good filtration [facility]ism rate/1.73 sq M Hospital predicted among non-blacks [Volume Rate/Area] in Serum or Plasma by Creatinine-bas ed formula (MDRD) Calcium 8.4 8.5-10.1 Below low normal [facility] - Good [Mass/volume] mg/dL [facility] in Serum or Hospital Plasma Phosphate 3.4 2.5-4.9 [facility] - Good [Mass/volume] mg/dL [facility] in Serum or Hospital Plasma Albumin 1.7 g/dL 3.5-4.7 Below low normal [facility] - Good [Mass/volume] [facility] in Serum or Hospital Plasma by Bromocresol purple (BCP) dye binding method ID Date Data Source [id number] 01/13/2019 05:45:00 PM EDT [facility] ID Progress Note01/13/2019Subjective:Siri ent with mental retardation,recurrent aspiration pneumonia.Non verbal,unable t o provide history.AfebrileCultures negativeNo new events..Objective:Vitals:Patient Vit als for the past 24 hrs: BP Temp Pulse Resp SpO2 Jmcgdl23/01/19 1510 107/64 98.3 F (36.8 C) 72 [...] (MBP/ADV) 100mL MBP 3.375 g In traVENous T0FLllq:Recent Labs 01/13/1904WBC 5.2 4.9 6.9 HGB 11.0* [...] COPD Pl an:1. Continue IV zosyn.Natasha Dudley MDFormerly [facility] 20185:43 PM Name Value Range Interpretation Code Description Data Harriett rce(s) Supporting Document(s ) ID Date Data Source [id number] 01/13/2019 05:26:05 PM EDT [facility] Progress NotePatient: Evelio Carlin Sex: male DOA: 01/10/2019Date of : 1950 Age: 68 y.o. :[id number]:Reyes Carlin is 68 y.o. male Who is more awake and alert. He isappearing comfor table. He is pulling off his nasal canula. The RN isrequesting restraints.Will orde r Mitts for restraints.Pt Presented to the ED from [facility] with medical history of D ysphagia ,s/p surgical placement of peg on 11/17/18, severe intellectual disability, Chronic respiratory failure, large Hiatal Hernia, hyperparathyroid unspecified,pe rsonal h/o pulmonary embolus, anxiety disorder, kyphosis and schizophrenia. Pt is nonverbal at baseline and is unable to provide a history.Per intermediate trans cristina records, at 6 AM, patient [...] rate was 30 and he was afebrile.[facility] home transfer record reporting that the resident removes nasalcanula at times. In the ED pt appearing lethargic and having mild respiratory distress.CXR showing nelson ziness at the right lung base due to small effusion withatelectasis/infiltrate. No confluent left lung process is seen. Sodium emzxo064.ABG with pH 7.46/53/66/38 O2 SA T 95 [...] Psychiatric disorder Pulmona ry emboli (HCC) Schizophrenia ([facility])Review of Systems: [x] Unable to obtain [...] 33.2* 31.9* 36.2*PLT 246 221 233Recent Labs 12017 01/10/1917NA 137 133* 133* -- 126*K 3.8 [...] values in this interval not displayed.Recent Labs [id number] 7. 46*PCO2 53*PO2 66*HCO3 38*CULTURE, BLOOD [[id number]] (Order [id number])MicrobiologyD ate: 01/10/2019 Department: [facility] Med Surg Released By/Authorizing: Wes Romero MD (auto-released)Specimen Information: Blood Component Value Flag Ref Range Uni ts StatusSpecial Requests: PreliminaryNO SPECIAL REQUESTSCulture result: NO GROWT H 3 DAYSCULTURE, BLOOD [[id number]] (Order [id number])MicrobiologyDate: 01/10/2019 De partment: [facility] Med Surg Released By/Authorizing: Wes Romero MD (a uto-released)Specimen Information: Blood Component Value Flag Ref Range Units Sta tusSpecial Requests: PreliminaryNO SPECIAL REQUESTSCulture result: NO GROWT H 3 DAYSCULTURE, URINE [[id number]] (Order [id number])MicrobiologyDate: 01/10/2019 De partment: [facility] Med Surg Released By/Authorizing: Wes Romero [...] in the axial, sagittal and coronal plane.Utilizing curb supervisor algorithm the examination w as performed to [...] CARLIN THIS IS AFINAL REPORT FROM IMAGING RESIDENTIAL SALES REPRESENTATIVE DATE OF SERVICE: 2018-12-18 01:22:40 IMAGES:555 EXAM: [...] 12/18/2018 04:49 GINA Jenkins. Please call Imaging Canal Structure Operator [phone] with questions. This report was electronically signed by: Tala MENDEZ 12/18/2018 04: 50 AMCta Up Ext Lt W ContResult Date: 12/18/2018History: Arm claudication. FINDI NGS: CTA of the left upper extremity wasperformed helically from level of the shoulder through the fingers after theintravenous administration of 119 cc of Isovue. Sagittal, coronal, and 3-Dreconstructed images obtained on an [employer] workstation are submitted. Noprior studies are available [...] placed on the t able in the tsqor-rbyl-iwbk decubitus position.CT scanning was performed locat ion [...] location.Attempts were made to pass an 8 Emirati pigtail catheter throug h this location.However, patient [...] chloride (MBP/ADV) 100mL MBP 3.375 g IntraVENous [id number] ment/Plan:Hospital Problems Date Reviewed: 01/12/2019 Codes Class Noted POA [place] respiratory failure with hypoxia (HCC) ICD-10-CM: J96.01ICD-9-CM: [...] Supporting Document(s ) ID Date Data Source [id number] 01/13/2019 04:01:31 PM EDT [facility] PULMONARY/ CCM- Consult NotePatient: Ivelisse Carlin [...] E) 250 mg/5 mL (5 mL) oral uwpdmpjr293 mg, 750 mg, Oral, BID, [place] [...] 1 59 01/13/19 0700 - 01/14/19 0659Shift [id number] 2012-2532 24 Hour To krystian [phone] 5588-8610 24 Hour TotalINTAKENG/GT 100 100 Water Flush [...] the last 72 hours.Cultures:No results found for: REGIONAL COMMERCIAL SALES MANAGER SLab ResultsComponent Value Date/Time Culture result: NO [...] staff.Stella Hamilton MDOct2018The billing code submitted in [facility] with this evaluation also includes thetime to review patient's prior record s, communicate with the physician team,obtain corroborating data, and discuss the risk and benefits of the proposedmanagement plan with the patient and their family >30 mi nutes. Name Value Range Interpretation Code Description Data Harriett rce(s) Supporting Document(s ) ID Date Data Source [id number] 01/13/2019 07:39:53 AM EDT [facility] Bedside and Verbal shift change report g iven to Chantal Alan RN (oncomingnurse) by Marni Regalado RN (offgoing nurse). Re port included the followinginformation SBAR and Kardex. Name Value Range Interpretation Code Description Data [facility] rce(s) Supporting Document(s ) ID Date Data Source [id number] 01/13/2019 07:42:35 AM EDT [facility] Name Value Range Interpretation Description Data Sup porting Code Source(s) Document(s ) Sodium 134 136-145 Below low normal [facility] - Good [Moles/volume] mmol/L [facility] in Serum or Hospital Plasma Potassium 3.6 3.5-5.1 [facility] - Good [Moles/volume] mmol/L [facility] in Serum or Hospital Plasma Chloride 95 98-107 Below low normal [facility] - Good [Moles/volume] mmol/L [facility] in Serum or Hospital Plasma Carbon 35 21-32 Above high normal [facility] - Good dioxide, total mmol/L [facility] [Moles/volume] Hospital in Serum or Plasma Anion gap in 8 mmol/L 10-20 Below low normal [facility] - Go od Serum or [facility] Plasma Hospital Glucose 93 mg/dL 74-106 [facility] - Good [Mass/volume] [facility] in Serum or Hospital Plasma Urea nitrogen 6 mg/dL 7-18 Below low normal [facility] - G ood [Mass/volume] [facility]ism in Serum or Hospital Plasma Creatinine 0.35 0.70-1.3 Below low normal [facility] - Good [Mass/volume] mg/dL 0 [facility] in Serum or Hospital Plasma Glomerular >60 [facility] - Good filtration [facility]ism rate/1.73 sq M Hospital predicted among blacks [Volume Rate/Area] in Serum or Plasma by Creatinine-bas ed formula (MDRD) Glomerular >60 [facility] - Good filtration [facility] rate/1.73 sq M Hospital predicted among non-blacks [Volume Rate/Area] in Serum or Plasma by Creatinine-bas ed formula (MDRD) Calcium 8.7 8.5-10.1 [facility] - Good [Mass/volume] mg/dL [facility] in Serum or Hospital Plasma Phosphate 2.5 2.5-4.9 [facility] - Good [Mass/volume] mg/dL [facility] in Serum or Hospital Plasma Albumin 1.9 g/dL 3.5-4.7 Below low normal [facility] - Good [Mass/volume] [facility] in Serum or Hospital Plasma by Bromocresol purple (BCP) dye binding method ID Date Data Source [id number] 01/13/2019 07:42:35 AM EDT [facility] - [facility] Name Value Range Interpretation Description Data Sup porting Code Source(s) Document(s ) Magnesium 1.8 mg/dL 1.6-2.6 [facility] - Good [Mass/volume] [facility] in Serum or Hospital Plasma ID Date Data Source [id number] 01/13/2019 07:38:36 AM EDT [facility] Name Value Range Interpretation Description Data Sup porting Code Source(s) Document(s ) Leukocytes 5.2 K/uL 4.8-10.6 [facility] - [#/volume] in Good Blood by [facility] Erythrocytes 3.32 4.70-6.0 Below low normal [facility] - [#/volume] in M/uL 0 Good Blood by [facility] Hemoglobin 11.0 14.0-18. Below low normal [facility] - [Mass/volume] in g/dL 0 [facility] Blood [facility] Hematocrit 33.9 % 42.0-52. Below low normal [facility] - [Volume 0 Good Fraction] of [facility] Blood by Hospital Automated count Erythrocyte mean 102.1 FL 81.0-94. Above high normal [facility] - corpuscular 0 Good volume [Entitic [facility]ism volume] by Hospital Automated count Erythrocyte mean 33.1 PG 27.0-35. [facility] - corpuscular 0 Good hemoglobin [facility] [Entitic mass] Hospital by Automated count Erythrocyte mean 32.4 30.7-37. [facility] - corpuscular g/dL 3 Good hemoglobin [facility] concentration Hospital [Mass/volume] by Automated count Erythrocyte 16.8 % 11.5-14. Above high normal [facility] - distribution 0 Good width [Ratio] by [facility] Hospital Platelets 262 K/uL 130-400 [facility] - [#/volume] in [facility] Blood by [facility] count Hospital Platelet mean 8.8 FL 9.2-11.8 Below low normal [facility] - volume [Entitic Good volume] in Blood [facility] by Automated Hospital count Segmented 67 % 48.0-72. [facility] - neutrophils/100 [address] [facility] Lymphocytes/100 22 % 18.0-40. [facility] - leukocytes in 0 [facility] Monocytes/100 8 % 2.0-12.0 [facility] - leukocytes in [facility] Blood [facility] Eosinophils/100 3 % 0.0-7.0 [facility] - leukocytes in [facility] Blood [facility] Basophils/100 0 % 0.0-3.0 [facility] - leukocytes in [facility] Segmented 3.5 K/UL 1.5-6.6 [facility] - neutrophils Good [#/volume] in [facility] Lymphocytes 1.1 K/UL 1.5-3.5 Below low normal [facility] - [#/volume] in [facility] Blood [facility] Monocytes 0.4 K/UL 0.0-1.0 [facility] - [#/volume] in [facility] Eosinophils 0.2 K/UL 0.0-0.7 [facility] - [#/volume] in [facility] Basophils 0.0 K/UL 0.0-0.1 [facility] - [#/volume] in [facility] Differential [facility] - cell count Good method - [facility] Immature 0 % 0.0-2.0 [facility] - granulocytes/100 [facility] leukocytes in [facility] by [facility] Automated count ID Date Data Source [id number] 01/12/2019 07:18:19 PM EDT [facility] Progress NotePatient: Evelio Carlin Sex: male DOA: 01/10/2019Date of : 1950 Age: 68 y.o. :[id number]:Reyes Carlin is 68 y.o. male more awake and alert. He is appearingcomfortable. He is pulling off his nasal canula. The RN is requestingrestraints.Will order Mitts fo r restraints.Pt Presented to the ED from [facility] with medical history of Dysphagia , s/psurgical placement of peg on 11/17/18, severe intellectual disability, Chronic respiratory failure, large Hiatal Hernia, hyperparathyroid unspecified,personal h/ o pulmonary embolus, anxiety disorder, kyphosis and schizophrenia. Ptis nonverb al at baseline and is unable to provide a history.Per intermediate transfer record s, at 6 AM, patient [...] rate was 30 and he was afebrile.The intermediate transfer record reporting that the resident removes [...] in the axial, sagittal and coronal plane.Utilizing curb supervisor algorithm the examination w as performed to [...] CARLIN THIS IS AFINAL REPORT FROM IMAGING RESIDENTIAL SALES REPRESENTATIVE DATE OF SERVICE: 2018-12-18 01:22:40 IMAGES:555 EXAM: [...] 12/18/2018 04:49 GINA Verde Please call Imaging Canal Structure Operator [phone] with questions. This report was electronically signed [...] coronal, and 3-Dreconstructed images obtained on an [employer] workstation are submitted. Noprior studies are available [...] placed on the t able in the dwvfp-sghi-vlao decubitus position.CT scanning was performed locat ion [...] location.Attempts were made to pass an 8 Emirati pigtail catheter throug h this location.However, patient [...] chloride (MBP/ADV) 100mL MBP 3.375 g IntraVENous [id number] ment/Plan:Hospital Problems Date Reviewed: 01/11/2019 Codes Class Noted POA [place] respiratory failure with hypoxia (HCC) ICD-10-CM: J96.01ICD-9-CM: [...] Supporting Document(s ) ID Date Data Source [id number] 01/12/2019 07:15:38 PM EDT [facility] Bedside, Verbal and Written shift change report given to marni (oncoming nurse)by nakul lyngoing nurse). Report inc luded the following information SBAR,Kardex, Intake/Output, MAR, Recent Results, Med Rec Status and Cardiac Rhythm. Name Value Range Interpretation Code Description Data Harriett rce(s) Supporting Document(s ) ID Date Data Source [id number] 01/12/2019 02:43:44 PM EDT [facility] ID Progress Note01/12/2019Subjective:Siri ent with mental retardation,recurrent aspiration pneumonia.Non verbal,unable t o provide history.AfebrileCultures negative so far.Objective:Vitals:Patient Vitals f or the past 24 hrs: BP Temp Pulse Resp SpO2 Fomnue27/30/19 1126 91/62 98.9 F (37.2 C) 79 [...] chloride (MBP/ADV) 100mL MBP 3.375 g IntraVENous V0HLeap:Recent Labs 01/10/1917WBC 4.9 6.9 -- 10.4HGB 10.8* [...] effusion. . COPD Plan:1. Continue IV zosyn.MARICEL Beauchamposteopathic hospital of rhode islandember 20182:42 PM Name Value Range Interpretation Code Description Data Harriett rce(s) Supporting Document(s ) ID Date Data Source [id number] 01/12/2019 01:16:25 PM EDT [facility] RECOMMENDATIONS:Given recurrent aspirati on pneumonia, suggest continuous [...] as recommended at SNF [x] No cultural, yarsanism, or ethnic dietary needs ident ified [] Cultural, yarsanism and ethnic food preferences identified and addressed [] Participated in care plan, discharge planning/Interdisciplinary roundsAleroge Correa RD Name Value Range Interpretation Code Description Data Harriett rce(s) Supporting Document(s ) ID Date Data Source [id number] 01/12/2019 01:05:59 PM EDT [facility] Problem: Falls - Risk ofGoal: *Absence o f FallsDescriptionDocument Samra Fall Risk and appropriate interventions in the jhon wsheet.Outcome: Progressing Towards GoalNote:Fall Risk Interventions:Mobilit y Interventions: Communicate number of staff needed forambulation/transferMedication Interventions: Evaluate medications/consider consulting pharmacyElimination Intervent ions: Call light in reachHistory of Falls Interventions: Door open when patient un attendedProblem: Pressure Injury - Risk ofGoal: *Prevention of pressure injuryDe scriptionDocument Btuch Scale and appropriate interventions in the [facility] et.Outcome: Progressing Towards GoalNote:Pressure Injury Interventions:S ensory Interventions: Assess changes in LOCMoisture Interventions: Absorbent und erpadsActivity Interventions: Pressure redistribution bed/mattress(bed type)Mob ility Interventions: Float heelsNutrition Interventions: Document food/fluid/suppl ement intakeFriction and Shear Interventions: Apply protective barrier, creams andemol lients Name Value Range Interpretation Code Description Data Harriett rce(s) Supporting Document(s ) ID Date Data Source [id number] 01/12/2019 12:25:00 PM EDT [facility] Progress NoteMIDSTATE MED[facility] ,[facility] Centeral Nelson Monae MD., F.C.C.P.Stella Hamilton MD., F.C.C.P. 9W 1 [facility] [address] [place] [id number] [place] [phone]: Evelio Carlin Sex: male DOA: [...] hrs : BP Temp Pulse Resp SpO2 Xlzemt17/30/19 1126 91/62 98.9 F (37.2 C) 79 [...] Procedure Component Value Units Date/Time CULTURE, BLOOD [[id number]] Collected: 01/10/19 0740 Order Status: Completed Specimen: Bloo d Updated: 01/12/19 1003 Special Requests: NO SPECIAL REQUESTS Culture result: NO GROWTH 2 DAYS CULTURE, BLOOD [[id number]] Collected: 01/10/19 0755 Order Status: Completed Specimen: Blood Updated: 01/12/19 1003 Special Requests: NO SPEC IAL REQUESTS Culture result: NO GROWTH 2 DAYS CULTURE, URINE [[id number]] Collecte d: 01/10/19 0858 Order Status: Completed Specimen: Urine from Clean catch Update d: 101 Special Requests: NO SPECIAL REQUESTS Culture result: NO HAIDER WTH 1 DAY CULTURE, BLOOD [[id number]] Collected: 01/10/19 0800 Order Status: Canceled Specimen: [...] the axial, sagittal and coronal plane.Utiliz ing curb supervisor algorithm the examination was performed to optimizeimaging [...] THIS IS AFINAL REPORT FROM KATJADevang BERGER RESIDENTIAL SALES REPRESENTATIVE DATE OF SERVICE: 2018-12-18 01:22:40 IMAGES:555 EXAM: [...] 12/18/2018 04:49 GINA Verde Please call Imaging Canal Structure Operator [phone] with questions. This report was electronically signed by: Tala MENDEZ 12/18/2018 04: 50 [facility] Chest Wo ContResult Date: 12/13/2018History: Respiratory difficulty [...] coronal, and 3-Dreconstructed images obtained on an [employer] workstation are submitted. Noprior studies are available [...] placed on the t able in the idcun-qnxk-diiq decubitus position.CT scanning was performed locat ion [...] location.Attempts were made to pass an 8 Emirati pigtail catheter throug h this location.However, patient [...] chloride (MBP/ADV) 100mL MBP 3.375 g IntraVENous [id number] Problems: Acute respiratory f ailure with hypoxia [...] Supporting Document(s ) ID Date Data Source [id number] 01/12/2019 10:14:26 AM EDT [facility] Care Management InterventionsPCP Verifie d by CM: YesMode of Transport at Discharge: S([facility])Transition of C are Consult (CM Consult): Discharge PlanningMyChart Signup: NoDischarge Dura ble Medical Equipment: NoPhysical Therapy Consult: NoOccupational Therapy Consult: NoSpeech Therapy Consult: NoCurrent Support Network: Nursing Facility([facility] )Plan discussed with Pt/Family/Caregiver: YesFreedom of Choice Offered: YesVeteran Resource Information Provided?: RefusedDischarge LocationDischarge Place ment: [facility] facility([facility])CASE MANAGEMENT PSYCHOSOCIAL ASSESSME Vane Carlin Admission Date: 01/10/2019MRN: [id number] of : 1Current date: 01/12/2019DISCHARGE PLAN: CM met w ith pt bedside to discuss discharge planning but pt notalert and oriented. TC to pt e mergency contact Joyce [phone], LMrequesting call back. Per [facility]. CM cclinked facili ty.Patient Information:Patients Preferred Name: evelioPatient Arrived Via: Stretc herInformation Obtained From: Unable to obtainPatient Objects to Receiving Blood : UnknownMRSA Assessment: Not applicableAuditory Impairment: NoneReadm it Risk ToolSupport Systems: [facility] facilityRelationship with Primary Physic deondre Group: Seen at least one time within thepast 6 monthsPCP: Patricio Hills DOAdmitting Provider: ELIAN Gonzalez [facility] IN[facility] LIEUTENANT: NAPayor: [place]or[place] / Plan: [place] PART A [...] solving and planning: Notes:Adeq uate coping skills: Notes:Confucianist/Cultural barriers: Notes:If unable to assess or n ot applicable: Notes:Suicide Assessment:Readmit Risk:Support Systems: [facility] facilityRelationship with Primary Physician Group: Seen at least o ne time within thepast 6 monthsRRAT Total Score: 21Advanced Care Planning:Confirm Advance Directive: NoneDiscussed with the patient and all questions fully answered . Name Value Range Interpretation Code Description Data Harriett rce(s) Supporting Document(s ) ID Date Data Source [id number] 01/12/2019 06:18:09 AM EDT [facility] Bedside and Verbal shift change report carol pham to Eloisa Aggarwal RN (oncoming nurse) byGaston Starr RN (offgoing nurse). Report included the following information SBAR,Kardex and MAR. Name Value Range Interpretation Code Description Data [facility] rce(s) Supporting Document(s ) ID Date Data Source [id number] 01/12/2019 07:18:17 AM EDT [facility] Name Value Range Interpretation Description Data Sup porting Code Source(s) Document(s ) Sodium 137 136-145 [facility] [Moles/volume] mmol/L [facility] in Serum or Hospital Plasma Potassium 3.8 3.5-5.1 [facility] [Moles/volume] mmol/L [facility] in Serum or Hospital Plasma Chloride 99 98-107 [facility] [Moles/volume] mmol/L [facility] in Serum or Hospital Plasma Carbon 36 21-32 Above high normal [facility] Good dioxide, total mmol/L [facility] [Moles/volume] Hospital in Serum or Plasma Anion gap in 5 mmol/L 10-20 Below low normal [facility] - Go od Serum or [facility] Plasma Hospital Glucose 99 mg/dL 74-106 [facility] [Mass/volume] [facility]rianism in Serum or Hospital Plasma Urea nitrogen 10 mg/dL 7-18 [facility] [Mass/volume] [facility]ism in Serum or Hospital Plasma Creatinine 0.40 0.70-1.3 Below low normal [facility] [Mass/volume] mg/dL 0 [facility] in Serum or Hospital Plasma Glomerular >60 [facility] - Good filtration [facility]rianism rate/1.73 sq M Hospital predicted among blacks [Volume Rate/Area] in Serum or Plasma by Creatinine-bas ed formula (MDRD) Glomerular >60 [facility] - Good filtration [facility] rate/1.73 sq M Hospital predicted among non-blacks [Volume Rate/Area] in Serum or Plasma by Creatinine-bas ed formula (MDRD) Calcium 8.8 8.5-10.1 [facility] [Mass/volume] mg/dL [facility] in Serum or Hospital Plasma Phosphate 2.2 2.5-4.9 Below low normal [facility] [Mass/volume] mg/dL [facility] in Serum or Hospital Plasma Albumin 1.9 g/dL 3.5-4.7 Below low normal [facility] [Mass/volume] [facility] in Serum or Hospital Plasma by Bromocresol purple (BCP) dye binding method ID Date Data Source [id number] 01/12/2019 07:18:17 AM EDT [facility] Name Value Range Interpretation Description Data Sup porting Code Source(s) Document(s ) Magnesium 1.6 mg/dL 1.6-2.6 [facility] [Mass/volume] [facility]ism in Serum or Hospital Plasma ID Date Data Source [id number] 01/12/2019 06:55:27 AM EDT [facility] Name Value Range Interpretation Description Data Sup porting Code Source(s) Document(s ) Leukocytes 4.9 K/uL 4.8-10.6 [facility] - [#/volume] in Good Blood by [facility]oroastrianism Automated count [facility] Erythrocytes 3.20 4.70-6.0 Below low normal [facility] - [#/volume] in M/uL 0 Good Blood by [facility] Automated count Hospital Hemoglobin 10.8 14.0-18. Below low normal [facility] - [Mass/volume] in g/dL 0 [facility] Blood [facility] Hematocrit 33.2 % 42.0-52. Below low normal [facility] - [Volume 0 Good Fraction] of Zoroastrianism Blood by Hospital Automated count Erythrocyte mean 103.8 FL 81.0-94. Above high normal [facility] - corpuscular 0 Good volume [Entitic [facility]astrianism volume] by Hospital Automated count Erythrocyte mean 33.8 PG 27.0-35. [facility] - corpuscular 0 Good hemoglobin [facility] [Entitic mass] Hospital by Automated count Erythrocyte mean 32.5 30.7-37. [facility] - corpuscular g/dL 3 Good hemoglobin [facility] concentration Hospital [Mass/volume] by Automated count Erythrocyte 16.9 % 11.5-14. Above high normal [facility] - distribution 0 Good width [Ratio] by [facility] Automated count Hospital Platelets 246 K/uL 130-400 [facility] - [#/volume] in [facility] Blood by [facility]rianism Automated count Hospital Platelet mean 9.0 FL 9.2-11.8 Below low normal [facility] - volume [Entitic Good volume] in Blood [facility] by Automated Hospital count Segmented 64 % 48.0-72. [facility] - neutrophils/100 [address] [facility] Lymphocytes/100 24 % 18.0-40. [facility] - leukocytes in 0 [facility] Monocytes/100 8 % 2.0-12.0 [facility] - leukocytes in [facility] Blood [facility] Eosinophils/100 4 % 0.0-7.0 [facility] - leukocytes in [facility] Blood [facility] Basophils/100 0 % 0.0-3.0 [facility] - leukocytes in [facility] Blood [facility] Segmented 3.1 K/UL 1.5-6.6 [facility] - neutrophils Good [#/volume] in [facility] Lymphocytes 1.2 K/UL 1.5-3.5 Below low normal [facility] - [#/volume] in [facility] Blood [facility] Monocytes 0.4 K/UL 0.0-1.0 [facility] - [#/volume] in [facility] Eosinophils 0.2 K/UL 0.0-0.7 [facility] - [#/volume] in [facility] Basophils 0.0 K/UL 0.0-0.1 [facility] - [#/volume] in [facility] Differential [facility] - cell count [facility] Immature 0 % 0.0-2.0 [facility] - granulocytes/100 [facility] leukocytes in [facility] Automated count ID Date Data Source [id number] 01/12/2019 02:43:07 AM EDT [facility] Progressing slowly Name Value Range Interpretation Code Description Data Harriett rce(s) Supporting Document(s ) ID Date Data Source [id number] 01/11/2019 08:09:55 PM EDT [facility] HISTORY: swelling to lower extremitiesTE CHNIQUE:Bilateral [...] Supporting Document(s ) ID Date Data Source [id number] 01/11/2019 07:43:36 PM EDT [facility] Bedside and Verbal shift change report g ivten to NANCY Campos (oncoming nurse) Israel Alamo RN (offgoing nurse). Report included the following information SBAR, Kardex,Intake/Output, MAR and Rece nt Results. Name Value Range Interpretation Code Description Data [facility] rce(s) Supporting Document(s ) ID Date Data Source [id number] 01/11/2019 07:18:27 PM EDT [facility] Bedside and Verbal shift change report carol pham to Beth RN (oncoming nurse) Israel Alamo RN (offgoing nurse). Report included the following information SBAR, Kardex,Intake/Output, MAR, Recent Results and Cardiac Rhythm NSR. Name Value Range Interpretation Code Description Data [facility](s) Supporting Document(s ) ID Date Data Source [id number] 01/11/2019 07:17:43 PM EDT [facility] ID Progress Note01/11/2019Subjective:Siri ent with mental retardation,recurrent aspiration pneumonia.Non verbal,unable t o provide history.Objective:Vitals:Patient Vitals for the past 24 hrs: BP Temp Puls e Resp IyO66601/11/19 1544 109/46 97.4 F (36.3 C) 72 [...] chloride (MBP/ADV) 100mL MBP 3.375 g IntraVENous R7CAual:Recent Labs 01/10/1907WBC 6.9 -- 10.4HGB 10.4* -- [...] Supporting Document(s ) ID Date Data Source [id number] 01/11/2019 05:50:14 PM EDT [facility] Progress NoteMID-[facility] ,P.C.Krystian Monae MD., F.C.C.P.Stella Hamilton MD., F.C.C.P. 9W 1 [facility] [address] [place] [id number] [place] [phone]: Evelio Carlin Sex: male DOA: 01/10/2019Da te of : 1950 Age: 68 y.o. LOS: LOS: 1 daySubjective:Mr. Jarad herrera is a 68 y.o. year old male who is being seen for SEPSIS, PNEUMONIAAND ACUTE RES PIRATORY FAILUREHE IS SLIGHTLY MORE AWAKE AND COMFORTABLE TODAY .Objective:Vital Signs:Patient Vitals for the past 24 hrs: BP Temp Pulse Resp DmN22201/11/19 1544 109/46 97.4 F (36.3 C) 72 [...] 0 0.0 - 2.0 %ABG:R ecent Labs [id number] 7.46*PCO2 53*PO2 66*HCO3 38*Recent Glucose Results:Lab Re sultsComponent Value Date/Time GLU 71 (L) 01/11/2019 04:58 AM@[email or web address] ION@CULTURESAll Micro Results Procedure Component Value Units Date/Time CULTURE, URINE [[id number]] Collected: 01/10/19 0858 Order Status: Completed Specimen: Urin e from Clean catch Updated: Special Requests: NO SPECIAL REQUESTS C ulture result: NO GROWTH 1 DAY CULTURE, BLOOD [[id number]] Collected: 01/10/19 0740 Or bassem Status: Completed Specimen: Blood Updated: 01/11/19918 Special Request s: NO SPECIAL REQUESTS Culture result: NO GROWTH 1 DAY CULTURE, BLOOD [[id number]] Collected: 01/10/19 0755 Order Status: Completed Specimen: Blood Updated: 918 Special Requests: NO SPECIAL REQUESTS Culture result: NO GROWTH 1 DA Y CULTURE, BLOOD [[id number]] Collected: 01/10/19 08 Order Status: Canceled Sp [...] in the axial, sagittal and coronal plane.Utilizing curb supervisor algorithm the examination w as performed to [...] CARLIN THIS IS AFINAL REPORT FROM IMAGING RESIDENTIAL SALES REPRESENTATIVE DATE OF SERVICE: 2018-12-18 01:22:40 IMAGES:555 EXAM: [...] 12/18/2018 04:49 GINA Verde Please call Imaging Canal Structure Operator [phone] with questions. This report was electronically signed [...] coronal, and 3-Dreconstructed images obtained on an [employer] workstation are submitted. Noprior studies are available [...] placed on the t able in the dmocc-qdlh-ndoj decubitus position.CT scanning was performed locat ion [...] location.Attempts were made to pass an 8 Emirati pigtail catheter throug h this location.However, patient [...] chloride (MBP/ADV) 100mL MBP 3.375 g IntraVENous W5YOxyort Problems: Acute respiratory f ailure with hypoxia [...] Name Value Range Interpretation Code Description [facility] ) ID Date Data Source [id number] 01/11/2019 12:18:54 PM EDT [facility] ADMISSION NOTENAME: Evelio VieraReshmaChana B: 1950MRN: [id number]/Time: 01/10/2019 11:19 AMSubjective:CHIEF COMPL AINT: Tachypneic, Hypoxic with O2 SAT 87 % on 4 LPM and audiblewheezingHISTORY OF PRESENT ILLNESS:Evelio is a 68 y.o. male who presents from [facility] with medical his tory ofDysphagia , s/p surgical placement of peg on 11/17/18, severe intellectualdisab ility, Chronic respiratory failure, large Hiatal Hernia, hyperparathyroidunspecif ied, personal h/o pulmonary embolus, anxiety disorder, kyphosis andschizophrenia. Pt is nonverbal at baseline and is unable to provide a history.Per intermediate trans [facility] records, at 6 AM, patient [...] rate was 30 and he was afebrile.[facility] home transfer record reporting that the [...] Calculation (Bezet) 411 ms Calculate d P [place] 49 degrees Calculated R [place] 62 degrees Calculated T [place] 1 degrees Diag nosis Sinus tachycardiaLACTIC ACID [...] O2 O2 FLOW 4 L/min Performed by [id number] NALYSIS W/ RFLX MICROSCOPIC Collection Time: 01/10/19 [...] Supporting Document(s ) ID Date Data Source [id number] 01/11/2019 07:29:40 AM EDT [facility] Bedside and Verbal shift change report carol Chou (oncoming nurse) Lisbeth Schmitz (offgoing nurse). Report included the following information SBAR,Kardex, Intake/Output, MAR and Recent Results. Name Value Range Interpretation Code Description Data [facility] rce(s) Supporting Document(s ) ID Date Data Source [id number] 01/11/2019 07:33:43 AM EDT [facility] Name Value Range Interpretation Description Data Sup porting Code Source(s) Document(s ) Sodium 133 136-145 Below low normal [facility] [Moles/volume] mmol/L [facility] in Serum or Hospital Plasma Potassium 4.2 3.5-5.1 [facility] [Moles/volume] mmol/L [facility] in Serum or Hospital Plasma Chloride 96 98-107 Below low normal [facility] [Moles/volume] mmol/L [facility] in Serum or Hospital Plasma Carbon 32 21-32 [facility] - [facility] dioxide, total mmol/L [facility] [Moles/volume] Hospital in Serum or Plasma Anion gap in 9 mmol/L 10-20 Below low normal [facility] - Go od Serum or [facility] Plasma Hospital Glucose 71 mg/dL 74-106 Below low normal [facility] [Mass/volume] [facility]rianism in Serum or Hospital Plasma Urea nitrogen 9 mg/dL 7-18 [facility] [Mass/volume] [facility]rianism in Serum or Hospital Plasma Creatinine 0.34 0.70-1.3 Below low normal [facility] [Mass/volume] mg/dL 0 [facility] in Serum or Hospital Plasma Glomerular >60 [facility] - Good filtration [facility]rianism rate/1.73 sq M Hospital predicted among blacks [Volume Rate/Area] in Serum or Plasma by Creatinine-bas ed formula (MDRD) Glomerular >60 [facility] - Good filtration [facility] rate/1.73 sq M Hospital predicted among non-blacks [Volume Rate/Area] in Serum or Plasma by Creatinine-bas ed formula (MDRD) Calcium 9.1 8.5-10.1 [facility] [Mass/volume] mg/dL [facility] in Serum or Hospital Plasma Phosphate 2.8 2.5-4.9 [facility] [Mass/volume] mg/dL [facility] in Serum or Hospital Plasma Albumin 2.0 g/dL 3.5-4.7 Below low normal [facility] [Mass/volume] [facility]rianism in Serum or Hospital Plasma by Bromocresol purple (BCP) dye binding method ID Date Data Source [id number] 01/11/2019 07:33:43 AM EDT [facility] Name Value Range Interpretation Description Data Sup porting Code Source(s) Document(s ) Magnesium 2.1 mg/dL 1.6-2.6 [facility] [Mass/volume] [facility]rianism in Serum or Hospital Plasma ID Date Data Source [id number] 01/11/2019 07:10:25 AM EDT [facility] Name Value Range Interpretation Description Data Sup porting Code Source(s) Document(s ) Leukocytes 6.9 K/uL 4.8-10.6 [facility] - [#/volume] in Good Blood by [facility]rianism Automated count [facility] Erythrocytes 3.11 4.70-6.0 Below low normal [facility] - [#/volume] in M/uL 0 Good Blood by [facility] Automated count [facility] Hemoglobin 10.4 14.0-18. Below low normal [facility] - [Mass/volume] in g/dL 0 Good Blood [facility] Hematocrit 31.9 % 42.0-52. Below low normal [facility] - [Volume 0 Good Fraction] of [facility]ism Blood by Hospital Automated count Erythrocyte mean 102.6 FL 81.0-94. Above high normal [facility] - corpuscular 0 Good volume [Entitic [facility]rianism volume] by Hospital Automated count Erythrocyte mean 33.4 PG 27.0-35. [facility] - corpuscular 0 Good hemoglobin [facility] [Entitic mass] [facility] by Automated count Erythrocyte mean 32.6 30.7-37. [facility] - corpuscular g/dL 3 Good hemoglobin [facility]rianism concentration [facility] [Mass/volume] by Automated count Erythrocyte 16.8 % 11.5-14. Above high normal [facility] - distribution 0 Good width [Ratio] by [facility]rian[facility] Automated count Hospital Platelets 221 K/uL 130-400 [facility] - [#/volume] in [facility] Blood by Zoroastrianism Automated count [facility] Platelet mean 9.1 FL 9.2-11.8 Below low normal [facility] - volume [Entitic Good volume] in [facility] by Automated Hospital count Segmented 74 % 48.0-72. Above high normal [facility] - neutrophils/100 [address] leukocytes in [facility] Lymphocytes/100 20 % 18.0-40. [facility] - leukocytes in 0 [facility] Monocytes/100 6 % 2.0-12.0 [facility] - leukocytes in [facility] Eosinophils/100 0 % 0.0-7.0 [facility] - leukocytes in [facility] Basophils/100 0 % 0.0-3.0 [facility] - leukocytes in [facility] Segmented 5.1 K/UL 1.5-6.6 [facility] - neutrophils Good [#/volume] in [facility] Lymphocytes 1.4 K/UL 1.5-3.5 Below low normal [facility] - [#/volume] in [facility] Monocytes 0.4 K/UL 0.0-1.0 [facility] - [#/volume] in [facility] Eosinophils 0.0 K/UL 0.0-0.7 [facility] - [#/volume] in [facility] Basophils 0.0 K/UL 0.0-0.1 [facility] - [#/volume] in [facility] Differential [facility] - cell count Good method [facility] Immature 0 % 0.0-2.0 [facility] - granulocytes/100 Good leukocytes in [facility] Automated count ID Date Data Source [id number] 01/11/2019 07:30:53 AM EDT [facility] Name Value Range Interpretation Description Data Sup porting Code Source(s) Document(s ) Valproate 73 ug/ml 50.0-100 [facility] [Mass/volume] .0 [facility]ism in Serum or Hospital Plasma ID Date Data Source [id number] 01/10/2019 11:40:55 PM EDT [facility] Problem: Falls - Risk ofGoal: [...] Name Value Range Interpretation Code Description Data [facility] Supporting Document(s ) ID Date Data Source [id number] 01/10/2019 07:19:15 PM EDT [facility] Bedside, Verbal and Written shift change report given to emily (oncoming nurse)by nakul lyngoing nurse). Report inc luded the following information SBAR,Kardex, Intake/Output, MAR, Recent Results, Med Rec Status and Cardiac Rhythm. Name Value Range Interpretation Code Description Data [facility](s) Supporting Document(s ) ID Date Data Source [id number] 01/10/2019 07:13:43 PM EDT [facility] Name Value Range Interpretation Description Data Sup porting Code Source(s) Document(s ) Osmolality of 280 280-300 [facility] - [facility] Serum or MOSM/kg [facility] Plasma H2O Hospital ID Date Data Source [id number] 01/10/2019 06:44:04 PM EDT [facility] Name Value Range Interpretation Description Data Sup porting Code Source(s) Document(s ) Sodium 133 136-145 Below low normal [facility] [Moles/volume] mmol/L [facility]ism in Serum or Hospital Plasma Potassium 4.6 3.5-5.1 [facility] [Moles/volume] mmol/L [facility] in Serum or Hospital Plasma Chloride 96 98-107 Below low normal [facility] [Moles/volume] mmol/L [facility] in Serum or Hospital Plasma Carbon 32 21-32 [facility] - Good dioxide, total mmol/L [facility] [Moles/volume] Hospital in Serum or Plasma Anion gap in 10 10-20 [facility] - Good Serum or mmol/L [facility] Plasma [facility] Glucose 124 74-106 Above high normal [facility] [Mass/volume] mg/dL [facility]ism in Serum or Hospital Plasma Urea nitrogen 7 mg/dL 7-18 [facility] [Mass/volume] [facility]astrianism in Serum or Hospital Plasma Creatinine 0.41 0.70-1.3 Below low normal [facility] [Mass/volume] mg/dL 0 [facility] in Serum or Hospital Plasma Glomerular >60 [facility] - Good filtration [facility]astrianism rate/1.73 sq M Hospital predicted among blacks [Volume Rate/Area] in Serum or Plasma by Creatinine-bas ed formula (MDRD) Glomerular >60 [facility] - Good filtration [facility]ism rate/1.73 sq M Hospital predicted among non-blacks [Volume Rate/Area] in Serum or Plasma by Creatinine-bas ed formula (MDRD) Calcium 8.8 8.5-10.1 [facility] [Mass/volume] mg/dL [facility]ism in Serum or Hospital Plasma Phosphate 3.0 2.5-4.9 [facility] - [facility] [Mass/volume] mg/dL [facility]ism in Serum or Hospital Plasma Albumin 2.0 g/dL 3.5-4.7 Below low normal [facility] [Mass/volume] [facility]oroastrianism in Serum or Hospital Plasma by Bromocresol purple (BCP) dye binding method ID Date Data Source [id number] 01/10/2019 05:01:22 PM EDT [facility] Progress NoteMID-[facility] ,P.C.Krystian Monae MD., F.CGualbertoC.P.Stella Hamilton MD., BellaCGualbertoPGualberto [address] [place] [id number] [place] [phone]: Evelio Carlin Sex: male DOA: 01/10/2019Da te of : 1950 Age: 68 y.o. LOS: LOS: 0 daysSubjective:1. Mr. Evelio Carlin is a 68 y.o. male with h/o COPD, pneumonia, pulmonaryemboli, hypopa rathyroidism, and mental retardation who presents to the ED viaambulance with res piratory distress and hypoxia. [facility] EMS [facility] with [facility] oxygen sat [...] hrs: BP Temp Pulse Resp SpO2 Height Gxdlqg79/28/19 1243 97/ 62 97.8 F (36.6 C) [...] Calculation (Bezet) 411 ms Calculate d P [place] 49 degrees Calculated R [place] 62 degrees Calculated T [place] 1 degrees Diag nosis Sinus tachycardiaCULTURE, BLOOD [...] O2 O2 FLOW 4 L/min Performed by [id number] GODDARD, BLOOD Collection Time: 01/10/19 7:55 AMResult [...] Date/ Time GLU 114 (H) 01/10/2019 07:40 [email or web address] Results Procedure Component Value Units Date/Time CULTURE, URINE [[id number]] Col lected: 01/10/19 0858 Order Status: Completed Specimen: Urine from Clean ca tch Updated: CULTURE, BLOOD [[id number]] Collected: 01/10/19 0740 Or bassem Status: Completed Specimen: Blood Updated: 01/10/19 113 Special Request s: NO SPECIAL REQUESTS Culture result: NO GROWTH AFTER 3 HOURS CULTURE, BLOOD [[id number]] Collected: 01/10/19 0755 Order Status: Completed Specimen: Blood Upda mikel: 01/10/19 1131 Special Requests: NO SPECIAL REQUESTS Culture result: NO HAIDER WTH AFTER 3 HOURS CULTURE, BLOOD [[id number]] Collected: 01/10/19 0800 Order Status: Canceled Specimen: [...] the axial, sagittal and coronal plane.Utiliz ing curb supervisor algorithm the examination was performed to optimizeimaging [...] CARLIN THIS IS AFINAL REPORT FROM [facility] RESIDENTIAL SALES REPRESENTATIVE DATE OF SERVICE: 2018-12-18 01:22:40 IMAGES:555 EXAM: [...] 12/18/2018 04:49 GINA Verde Please call Imaging Canal Structure Operator [phone] with questions. This report was electronically signed by: Tala MENDEZ 12/18/2018 04: 50 [facility] Chest Wo ContResult Date: 12/13/2018History: Respiratory difficulty [...] coronal, and 3-Dreconstructed images obtained on an [employer] workstation are submitted. Noprior studies are available [...] placed on the t able in the mavyx-eoeo-zvrr decubitus position.CT scanning was performed locat ion [...] location.Attempts were made to pass an 8 Emirati pigtail catheter throug h this location.However, patient [...] chloride (MBP/ADV) 100mL MBP 3.375 g IntraVENous T6EIuptsc Problems: Acute respiratory failure with hypoxia (HCC) [...] Supporting Document(s ) ID Date Data Source [id number] 01/10/2019 04:45:29 PM EDT [facility] Infectious Disease ConsultToday's Date: 01/10/2019Admit Date: 01/10/2019Subjective:Date of Consultation: January 10, 2019Refe rring Physician: Justice Hills is a 68 y.o. male who is being seen for pneumonia.Pat ient with historyof COPD,aspiration pneumonia,mental retardation,s/p peg tub e,schizophrenia wastransferred from the intermediate for respiratory distress an d low oxygensaturation.Patient is non verbal unable to provide any history.History ob tainedfrom chart review. .Patient Active Problem ListDiagnosis Code Paraesophage al hiatal hernia K44.9 COPD (chronic obstructive pulmonary disease) (HCC) J44 .9 Acute respiratory distress R06.03 Pneumonia J18.9 COPD exacerbation ([facility]) J44.1 Sepsis due to undetermined organism ([facility]) A41.9 Generalized anxiety disorde r F41.1 Acute respiratory failure with hypoxia ([facility]) J96.01 Pneumonia involvin g right lung J18.9 Hyponatremia E87.1Past Medical History:Diagnosis Date Chronic obstructive pulmonary disease (HCC) GERD (gastroesophageal reflux disease) Hyper parathyroidism (HCC) Mental retardation Parkinsonism due to drug ([facility]) Pneumoni a Psychiatric disorder Pulmonary emboli ([facility]) Schizophrenia ([facility])No family hist ory on file.Social HistoryTobacco [...] C alculation (Bezet) 411 ms Calculated P [place] 49 degrees Calculated R [place] 62 degrees Calculated T [place] 1 degrees Diagnosis Sinus tachycardiaCULTURE, BLOOD Collection [...] O2 O2 FLOW 4 L/min Performed by [id number], BLOOD Collection Time: 01/10/19 7:55 AMResult Value [...] in the axial, sagittal and coronal plane.Utilizing curb supervisor algorithm t he examination was performed to [...] THIS IS AFINAL REPORT FROM KATJA [facility] RESIDENTIAL SALES REPRESENTATIVE DATE OF SERVICE: 2018-12-18 01:22:40 IMAGES:555 EXAM: [...] 12/18/2018 04:49 GINA Verde Please call Imaging Canal Structure Operator [phone] with questions. This report was electronically signed by: Tala MENDEZ 12/18/2018 04: 50 [facility] Chest Wo ContResult Date: 12/13/2018History: Respiratory difficulty [...] placed on the t able in the wyduf-hqet-mekn decubitus position.CT scanning was performed locat ion [...] location.Attempts were made to pass an 8 Emirati pigtail catheter throug h this location.However, patient [...] Supporting Document(s ) ID Date Data Source [id number] 01/10/2019 03:19:15 PM EDT [facility] The history is provided by the EMS pj nava. 7:20 AM: Evelio Carlin is a 68 y.o. male with h/o COPD, pneumonia,pulmonary emboli, hypoparathyroidism, and mental retardation who presents to the via am bulance with respiratory distress and hypoxia. Per EMS personnel, thepatient i s from Only and was found with an oxygen sat [...] file Gets together: Not on file Attends yarsanism service: Not on file Active member of [...] Calculatio n (Bezet) 411 ms Calculated P [place] 49 degrees Calculated R [place] 62 degrees Calculated T [place] 1 degrees Diagnosis Sinus tachycardiaLACTIC ACID Collection [...] O2 O2 FLOW 4 L/min Performed by [id number]: NSR at 110 BPM, borderline T-wave inversions [...] SUMMARY>Impression/Diffe rential Diagnosis: COPD exacerbation, pneumonia, sepsis, GX3jdnyofmj, and pulm onary edema.ED Course:68 y.o. male [...] Every 6 hours while awake 12/30/18 Mili sEcudero DOalbuterol-ipratropium (DUO-NEB) 2.5 mg-0.5 mg/3 ml nebu [...] Supporting Document(s ) ID Date Data Source [id number] 01/10/2019 02:07:22 PM EDT [facility] CT CHEST WO CONTClinical data: evaluatio [...] Data Source 36N*ENCOUNTER 01/10/2019 12:28:01 PM EDT [facility] [id number] [facility] [address] [place] [address] [phone]/ Evelio Carlin (Male) [id number] I 3 ED Dispo:ADMIT Chief Complaint: Respiratory Distress Diagnosis: Respiratory distress [] Sepsis, due to unspecified organism (HCC) [] Hypoxia [] Lethargic [] Aspiration pneumonia of right jorge g, unspecified aspiration pneumonia type, unspecified part of lung (HCC) [] Current Providers: Attending: Devang Romero; Eloisa Hills Consulting Provider: Eloisa Hills; Sabrina Dudley; Nicole Monae Primary Nurse: Rain Lorenzo [id number] [facility] t Group [id number] - [facility] Ed Medva MrnMRN: [id number] Print Group [id number] - [facility] Ed Medva Age SexDOB 1950 AGE 68 SEX Male Primary Care Provider: Mili Hills DO Allergies: (No Known Allergies)Date Reviewed: 01/10/2019Reviewed by: Mili Hills DO - Review CompleteED Provider Notes: No notes of this type exist for this encounter.ED Orders [id number] BLOOD GAS, ARTERIAL [#[id number]] Priority: STAT Class: ER Collect Standing Order Information Josie g Occurrences:0/ Interval:ONE TIME Last released:01/10/2019 Released orders : Sat Jan 10, 2019 7:20 AM by: MELINDA VARELA [id number] BLOOD GAS, ARTERIAL [# [id number]] Priority: STAT Class: ER Collect Released on: 01/10/2019 7:20 AM [id number] LACTIC ACI D [#[id number]] Priority: STAT Class: ER Collect Standing Order Information Remaining Occurrences:0/2 Interval:EVERY 4 HRS Last released:01/10/2019 Released orders : [facility] Jan 10, 2019 8:05 AM by: WES ROMERO [facility] Jan 10, 2019 7:29 AM by: WES DAWSON [id number] URINALYSIS W/ RFLX MICROSCOPIC [#[id number]] Priority: STAT Class: E R Collect Standing Order Information Remaining Occurrences:0/1 Interval:ONE TIME Last r eleased:01/10/2019 Released orders: [facility] Jan 10, 2019 7:29 AM by: WES ROMERO [id number] M ETABOLIC PANEL, COMPREHENSIVE [#[id number]] Priority: STAT Class: ER Collect Standing Order Info rmation Remaining Occurrences:0/1 Interval:ONE TIME Last released:01/10/2019 Released orders: [facility] Jan 10, 2019 7:29 AM by: WES ROMERO [id number] CBC WITH AUTOMATED DIFF [#[id number]] Priority: STAT Class: ER Collect Standing Order Information Remaining Occurre nces:0/1 Interval:ONE TIME Last released:01/10/2019 Released orders: [facility] Jan 10 7:29 AM by: WES ROMERO [id number] TROPONIN I [#[id number]] Priority: STAT Class: ER Collect Standing Order Information Remaining Occurrences:0/1 Interval:ONE TI ME Last released:01/10/2019 Released orders: [facility] Jan 10, 2019 7:29 AM by: Devang ROMERO [id number] CK [#[id number]] Priority: STAT Class: ER Collect St anding Order Information Remaining Occurrences:0/1 Interval:ONE TIME Last released:0 01/10/2019 Released orders: [facility] Jan 10, 2019 7:29 AM by: WES ROMERO [id number] BNP [#[id number]] Priority: STAT Class: ER Collect Standing Order Information Remaining Occurrences:0/1 Interval:ONE TIME Last released:01/10/2019 Released orders : [facility] Jan 10, 2019 7:29 AM by: WES ROMERO [id number] PTT [# [id number]] Priority: STAT Class: ER Collect Specimen Source: Blood Standing Order Information Remaining Occurrences:0/1 Interval:ONE TIME Last released:01/10/2019 Released orders : Sat Jan 10, 2019 7:29 AM by: WES ROMERO [id number] PROTHROMBIN TIME + INR [# [id number]] Priority: STAT Class: ER Collect Standing Order Information Remaining Occurrences:0 /1 Interval:ONE TIME Last released:01/10/2019 Released orders: Sat Jan 10, 2019 7:29 AM by: WES ROMERO [id number] BLOOD GAS, ARTERIAL [#[id number]] Priority: S TAT Class: ER Collect Standing Order Information Remaining Occurrences:0/1 Interval:ONE TI ME Last released:01/10/2019 Released orders: [facility] Jan 10, 2019 7:29 AM by: Devang ROMERO [id number] LACTIC ACID [#[id number]] Priority: STAT Class: ER Collect Spec imen Source: Plasma Specimen Collected: 01/10/2019 7:40 AM Resulting Agency: [facility] Test ID: LAC Released on: 01/10/2019 7:29 AM [id number] URINALYSIS W/ RFLX MICROSCOPIC [#[id number]] Priority: STAT Class: ER Collect Specimen Source: Urine Specimen Collected: 01/10 8:48 AM Resulting Agency: [facility] Test ID: UA Released on: 01/10/2019 7:29 AM [id number] METABOLIC PANEL, COMPREHENSIVE [#[id number]] Priority: STAT Class: ER Collect Spec imen Source: Plasma Specimen Collected: 01/10/2019 7:40 AM Resulting Agency: [facility] Test ID: MPL Released on: 01/10/2019 7:29 AM [id number] CBC WITH AUTOMATED DIFF [#[id number]] Priority: STAT Class: ER Collect Specimen Source: Whole Blood Specimen Collected: 01/10/2019 7:40 AM Resulting Agency: [facility] Test ID: CBCA Released on : 01/10/2019 7:29 AM [id number] TROPONIN I [#[id number]] Priority: STAT Class: E R Collect Specimen Source: Plasma Specimen Collected: 01/10/2019 7:40 AM Resulting Agency: [facility] Test ID: TROIP Released on: 01/10/2019 7:29 AM [id number] CK [#[id number]] Priority: STAT Class: ER Collect Specimen Source: Plasma Specimen Collected: 12/15 7:40 AM Resulting Agency: [facility] Test ID: CPKP Released on: 01/10/2019 7:29 AM [id number] BNP [#[id number]] Priority: STAT Class: ER Collect Sp ecimen Source: Plasma Specimen Collected: 01/10/2019 7:40 AM Resulting Agency: [facility] Test ID: BNPPB Released on: 01/10/2019 7:29 AM [id number] PTT [#[id number]] Priority: STAT Class: ER Collect Specimen Source: Plasma Specimen Collected: 12/15 7:40 AM Resulting Agency: [facility] Test ID: APTT Released on: 01/10/2019 7:29 AM [id number] PROTHROMBIN TIME + INR [#[id number]] Priority: STAT Class: ER Collect Sp ecimen Source: Plasma Specimen Collected: 01/10/2019 7:40 AM Resulting Agency: [facility] Test ID: APTHR Released on: 01/10/2019 7:29 AM [id number] BLOOD GAS, ARTERIAL [#[id number]] Priority: STAT Class: ER Collect Released on: 01/10/2019 7:29 AM [id number] BLOOD GAS, ARTERIAL [#[id number]] Priority: Routine Class: ER Collect Resulting Agency: [facility] Test ID: ABGG1 Standing Order Information Remaining Occurrences:0 /1 Released orders: Sat Jan 10, 2019 7:47 AM by: Automatic Batch Process [id number] BLOOD GAS, ARTERIAL [#[id number]] Priority: Routine Class: ER Collect Specimen Source: Rosette rial Blood Specimen Collected: 01/10/2019 7:47 AM Resulting Agency: [facility] Test ID: ABGG1 Released on: 01/10/2019 7:47 AM [id number] LACTIC ACID [#[id number]] Priority: STAT Class: ER Collect Specimen Source: Plasma Specimen Collected: 01/10/2019 11:29 AM Alice medina Agency: [facility] Test ID: LAC Released on: 01/10/2019 8:05 AM [id number] VALPRO IC ACID [#[id number]] Priority: Routine Class: ER Collect Standing Order Info rmation Remaining Occurrences:N/A- not released Interval:TOMORROW AM Comment:MADAY Muhammad [id number] RENAL FUNCTION PANEL [#[id number]] Priority: Timed Class: ER Collect St anding Order Information Remaining Occurrences:N/A-not released Interval:ONE TIME [id number] RENAL FUNCT ION PANEL [#[id number]] Priority: Routine Class: ER Collect Standing Order Information Remaining Occurrences:N/A-not released Interval:DAILY [id number] OSMOLALITY, SERUM/PLASMA [#[id number]] Priority: Routine Class: ER Collect Standing Order Information Remainin g Occurrences:N/A-not released Interval:ONE TIME [id number] MAGNESIUM [# [id number]] Priority: Routine Class: ER Collect Standing Order Information Remaining Occurrences:N /A-not released Interval:DAILY [id number] CBC WITH AUTOMATED DIFF [#[id number]] Priority: Rou dipti Class: ER Collect Standing Order Information Remaining Occurrences:N/A-not released Interval :DAILY [id number] CULTURE, BLOOD [#[id number]] Priority: STAT Class: ER Collect Speci men Source: Blood Standing Order Information Remaining Occurrences:0/1 Interval:ONE TI ME Last released:01/10/2019 Released orders: Sat Jan 10, 2019 7:29 AM by: Devang ROMERO [id number] CULTURE, BLOOD [#[id number]] Priority: STAT Class: ER Collect Spec imen Source: Blood Standing Order Information Remaining Occurrences:0/1 Interval:ONE TI ME Last released:01/10/2019 Released orders: Sat Jan 10, 2019 7:29 AM by: Devang ROMERO [id number] CULTURE, URINE [#[id number]] Priority: STAT Class: ER Collect Spec imen Source: Clean catch Standing Order Information Remaining Occurrences:0/1 Interval:ONE TI ME Last released:01/10/2019 Released orders: Sat Jan 10, 2019 7:29 AM by: Devang ROMERO Reason for Culture -> Other [id number] CULTURE, BLOOD [#[id number]] Priori ty: STAT Class: ER Collect Specimen Source: Blood Specimen Collected: 01/10/2019 7:40 AM Machoin carol Agency: [facility] Test ID: HBCS Released on: 01/10/2019 7:29 AM [id number] 3 CULTURE, BLOOD [#[id number]] Priority: STAT Class: ER Collect Specimen Source : Blood Specimen Collected: 01/10/2019 7:55 AM Resulting Agency: [facility] Test ID: HBCS Released on: 01/10/2019 7:29 AM [id number] CULTURE, URINE [#[id number]] P riority: STAT Class: ER Collect Specimen Source: Clean catch Specimen Collected: 01/10/2019 8:58 AM Resulting Agency: [facility] Test ID: NEWSPAPER ILLUSTRATOR Reason for Culture -> Other Release d on: 01/10/2019 7:29 AM [id number] CULTURE, BLOOD [#[id number]] Canceled Priority: ST AT Class: ER Collect Specimen Source: Blood Canceled by GEOVANI, LAB IN [place] on Sat Jan 10, 2019 8:3 7 AM Reason: Other Comment: DUPLICATE REQUEST Standing Order Information Remaining Occurre nces:0/1 Interval:ONE TIME Last released:01/10/2019 Released orders: Sat Jan 10 7:51 AM by: WES ROMERO [id number] CULTURE, BLOOD [#[id number]] Canceled Priority: STAT Class: ER Collect Specimen Source: Blood Specimen Collected: 01/10/2019 8:00 AM Resultin g Agency: [facility] Test ID: HBCS Canceled by GEOVANI, [facility] [place] on Sat Jan 10, 2019 8:37 AM Reason: Other Comment: DUPLICATE REQUEST Released on: 01/10/2019 7:51 AM [id number] XR CHEST PORT [#[id number]] Priority: STAT Class: Hospital Performe d Standing Order Information Remaining Occurrences:0/1 Interval:ONE TIME Last released: 01/10/2019 Released orders: Sat Jan 10, 2019 7:29 AM by: WES ROMERO Reason for E xam -> Sepsis [id number] XR CHEST PORT [#[id number]] Priority: STAT Class: H ospital Performed Specimen Collected: 01/10/2019 8:53 AM Resulting Agency: [facility] Test ID : [id number] Reason for Exam -> Sepsis Released on: 01/10/2019 7:[id number] CHEST WO CONT [#[id number]] Priority: Routine Class: Hospital Performed Standing Order Information Remaining Occurrences:0/1 Interval:ONE TIME Last released:01/10/2019 Released orders : [facility] Jan 10, 2019 11:47 AM by: REINIER MILI [id number] CT CHEST WO CONT [#[id number]] Priority: STAT Class: Hospital Performed Resulting Agency: [facility] Test ID: [id number] Released on: 01/10/2019 11:47 AM [id number] EKG, 12 LEAD, INITIAL [#[id number]] Priority: S TAT Class: Hospital Performed Standing Order Information Remaining Occurrences:0/1 Inter seema:ONE TIME Last released:01/10/2019 Released orders: [facility] Jan 10, 2019 7:29 AM by: WES RAMOS Reason for Exam: -> Sepsis [id number] EKG, 12 LEAD, INITIAL [#[id number]] Priority: STAT Class: Hospital Performed Specimen Collected: 01/10/2019 7:34 AM Resulting Agency: [facility] Test ID: [id number] Reason for Exam: -> Sepsis Released on: 01/10/2019 7:29 AM [id number] VITAL SIGNS [#[id number]] Priority: Routine Class: Hospital Performed Standing Or bassem Information Remaining Occurrences:0/1 Interval:EVERY HOUR Last released:01/10/2019 Released orders: [facility] Jan 10, 2019 7:29 AM by: WES ROMERO [id number] STRICT I & O [#[id number]] Priority: Routine Class: Hospital Performed Standing Order Information Remaining Occurrences:0/1 Interval:CONTINUOUS Last released:01/10/2019 Released o rders: [facility] Jan 10, 2019 7:29 AM by: WES ROMERO [id number] NEUROLOGIC STATUS ASSESSMENT [#[id number]] Priority: Routine Class: Hospital Performed Standing Order Information Remainin g Occurrences:0/1 Interval:EVERY HOUR Last released:01/10/2019 Released orders : [facility] Jan 10, 2019 7:29 AM by: WES ROMERO [id number] NOTIFY PROVIDER: SPECIFY [# [id number]] Priority: STAT Class: Hospital Performed Standing Order Information Remaining Occurre nces:0/1 Interval:CONTINUOUS Last released:01/10/2019 Released orders: [facility] Jan 10, 2019 7:29 AM by: WES ROMERO Describe Order -> Notify provider within one hour to start vasopr essors if patient is unable to maintain a MAP of greater than or equa l to 65 mmHg despite fluid resuscitation [id number] HEMODYNAMIC MONITORING [#[id number]] Priority: STAT Class: Hospital Performed Standing Order Information Remaining Occurrences:0 /1 Interval:CONTINUOUS Last released:01/10/2019 Released orders: Sat Jan 10, 2019 7:29 AM by: WES ROMERO Comment:In the event of persistent arterial hypotension after tw o hours of fluid resuscitation efforts, or initial lactate greater than or equal to 4 mm ol/L (36 mg/dl) measure and record CVP and ScvO2 [id number] MEASURE RECTAL TEMPERATURE [#[id number]] Priority: STAT Class: Hospital Performed Standing Order Information Remaining Occurrences:0 /1 Interval:ONE TIME Last released:01/10/2019 Released orders: Sat Jan 10, 2019 7:29 AM by: WES ROMERO [id number] VITAL SIGNS [#[id number]] Priority: S TAT Class: Hospital Performed Released on: 01/10/2019 7:29 AM [id number] STRICT I & O [#[id number]] Priority: STAT Class: Hospital Performed Released on: 01/10/2019 7:29 AM [id number] 5 NEUROLOGIC STATUS ASSESSMENT [#[id number]] Priority: STAT Class: Hospital Performed Relea sed on: 01/10/2019 7:29 AM [id number] NOTIFY PROVIDER: SPECIFY [#[id number]] Priority: STAT Cla ss: Hospital Performed Describe Order -> Notify provider within one hour to start vasopressors if patient is unable to maintain a MAP of greater than or equal to 65 mmHg despi te fluid resuscitation Released on: 01/10/2019 7:29 AM [id number] HEMODYNAMIC MONITORING [# [id number]] Priority: STAT Class: Hospital Performed Comment:In the event of persistent arterial hypoten elio after two hours of fluid resuscitation efforts, or initial lactate greater than or equal to 4 mmol/L (36 mg/dl) measure and record CVP and ScvO2 Released on: 01/10/2019 7:29 AM [id number] 9 MEASURE RECTAL TEMPERATURE [#[id number]] Priority: STAT Class: Hospital Performed Relea sed on: 01/10/2019 7:29 AM [id number] POC GLUCOSE [#[id number]] Priority: STAT Cla ss: Hospital Performed Standing Order Information Remaining Occurrences:0/1 Interval:CONTIN UOUS Last released:01/10/2019 Released orders: [facility] Jan 10, 2019 7:30 AM by: Devang ROMERO [id number] POC GLUCOSE [#[id number]] Priority: STAT Class: Hospital Perform ed Released on: 01/10/2019 7:30 AM [id number] NOTIFY PROVIDER: SPECIFY [#[id number]] Yuan ority: STAT Class: Hospital Performed Standing Order Information Remaining Occurrences:0/1 In terval:CONTINUOUS Last released:01/10/2019 Released orders: [facility] Jan 10, 2019 7:51 AM by: WES ROMERO Describe Order -> Notify provider within one hour to start vasopressors if patient is unable to maintain a MAP of greater than or equal to 65 mmHg despite fluid resuscitation [id number] HEMODYNAMIC MONITORING [#[id number]] Priority: STAT Class: Hospital Performed Standing Order Information Remaining Occurrences:0/1 Inter esema:CONTINUOUS Last released:01/10/2019 Released orders: [facility] Jan 10, 2019 7:51 AM by: WES PARDO Comment:In the event of persistent arterial hypotension after two hours of fluid resuscitation efforts, or initial lactate greater than or equal to 4 mmol/L (36 mg/dl) measu re and record CVP and ScvO2 [id number] NOTIFY PROVIDER: SPECIFY [#[id number]] Priority: STAT Cla ss: Hospital Performed Describe Order -> Notify provider within one hour to start vasopressors if patient is unable to maintain a MAP of greater than or equal to 65 mmHg despi te fluid resuscitation Released on: 01/10/2019 7:51 AM [id number] HEMODYNAMIC MONITORING [# [id number]] Priority: STAT Class: Hospital Performed Comment:In the event of persistent arterial hypoten elio after two hours of fluid resuscitation efforts, or initial lactate greater than or equal to 4 mmol/L (36 mg/dl) measure and record CVP and ScvO2 Released on: 01/10/2019 7:51 AM [id number] 5 CARDIAC MONITORING [#[id number]] Priority: STAT Class: Hospital Performed Stand ing Order Information Remaining Occurrences:0/1 Interval:Expires 48 hours Last re leased:01/10/2019 Released orders: [facility] Jan 10, 2019 10:45 AM by: MILI HILLS Type: -> Bedside [id number] CARDIAC MONITORING [#[id number]] Priority: STAT Class: Hospital Perform ed Type: -> Bedside Released on: 01/10/2019 10:45 AM [id number] EMMA CASTILLO [# [id number]] Priority: STAT Class: Hospital Performed Standing Order Information Remaining Occurre nces:N/A-not released Interval:CONTINUOUS THE0193 VITAL SIGNS PER UNIT ROUTINE [#[id number]] Pr iority: STAT Class: Hospital Performed Standing Order Information Remaining Occurrences:N/A-not releas ed Interval:CONTINUOUS Comment:More frequently if Indicated. [id number] NOTIFY PROVIDER: VITAL SIGNS SCOTT HIDALGO [#[id number]] Priority: STAT Class: Hospital Performed Standing Order [...] ess than 120 ml in 4 hours [id number] APPLY/MAINTAIN SEQUENTIAL COMPRESSIO* [#[id number]] Priority: ST AT Class: Hospital Performed Standing Order Information Remaining Occurrences:N/A-not released Interval:CONTINUOUS IVT11 SALINE LOCK IV [#[id number]] Priority: STAT Class: H ospital Performed Standing Order Information Remaining Occurrences:0/1 Interval:ONE TI ME Last released:01/10/2019 Released orders: Sat Jan 10, 2019 7:29 AM by: Devang ROMERO IVT11 SALINE LOCK IV [#[id number]] Priority: STAT Class: Hospital Perform ed Released on: 01/10/2019 7:29 AM SODIUM CHLORIDE 0.9 % IJ SYRG [#[id number]] Priority : STAT Class: Normal IPRATROPIUM-ALBUTEROL 2.5 MG-0.5 MG/* [#[id number]] Priority: STAT Class: N ormal MODE OF DELIVERY -> Nebulizer METHYLPREDNISOLONE (PF) 125 MG/2 ML * [#[id number]] Prior ity: STAT Class: Normal IPRATROPIUM-ALBUTEROL 2.5 MG-0.5 MG/* [#[id number]] Priority: STAT Cla ss: Normal MODE OF DELIVERY -> Nebulizer ACETAMINOPHEN 325 MG TABLET [#[id number]] Priority: STAT Class: Normal PIPERACILLIN-TAZOBACTAM 3.375 GRAM I* [#[id number]] Priority: STAT Class: Normal Antibiotic Indications -> Pneumonia (HAP) Suspected Organism(s) -> suspect aspirat ion pneumina VANCOMYCIN IVPB < 1.5 GM [#[id number]] Priority: STAT Class: N ormal Antibiotic Indications -> Pneumonia (HAP) SODIUM CHLORIDE 0.9% BOLUS IV [#[id number]] Priority: STAT Class: Normal SODIUM CHLORIDE 0.9% BOLUS IV [#[id number]] Priorit y: STAT Class: Normal 0.9% sodium chloride (MBP/ADV) infus* [#[id number]] Priority: None BUDESONIDE 0.5 MG/2 ML NEB SUSPENSION [#[id number]] Priority: None Class: Normal MODE OF DELIVERY -> N ebulizer CHOLESTYRAMINE- ASPARTAME 4 GRAM PACK* [#[id number]] Priority: None Class: Normal CINACALCET 30 MG TAB [#[id number]] Priority: None Class: Normal LAMOTRIGINE 25 MG TAB [#[id number]] Priority: None Class: Normal MULTIVITAMIN TAB [#[id number]] Priority: None Class: Normal PANTOPRAZOLE 40 MG GRANULES FOR ORAL* [# [id number]] Priority: None Class: Normal PPI INDICATION -> Symptomatic GERD VALPROIC ACID ( SODIUM SALT) 250 M* [#[id number]] Priority: None Class: Normal ALPRAZOLAM 0.5 MG TAB [#[id number]] Priority: None Class: Normal SODIUM CHLORIDE 0.9 % IV [#[id number]] Priority: STAT Class: Normal ACETAMINOPHEN (TYLENOL) SOLUTION 32M* [#[id number]] Priority: None Class: Normal HEPARIN (PORCINE) 5,000 UNIT/ML IJ S* [#[id number]] Priority: None Class: N ormal IPRATROPIUM-ALBUTEROL 2.5 MG-0.5 MG/* [#[id number]] Priority: None Class: Normal MODE OF DELIVERY -> Nebulizer MD38 SEVERE SEPSIS AND SEPTIC SHOCK BUND* [#[id number]] Priority: STAT C lass: Hospital Performed Standing Order Information Remaining Occurrences:0/1 Interval:CONTIN UOUS Last released:01/10/2019 Released orders: [facility] Jan 10, 2019 7:29 AM by: Devang ROMERO SEVERE SEPSIS AND SEPTIC SHOCK BUNDL* [#[id number]] Priority: STAT Class: Hospital Perform ed Released on: 01/10/2019 7:29 AM SCOTTIE SEVERE SEPSIS AND SEPTIC SHOCK BUNDL* [#[id number]] Devin torresy: STAT Class: Hospital Performed Standing Order Information Remaining Occurrences:0/1 Int erval:CONTINUOUS Last released:01/10/2019 Released orders: [facility] Jan 10, 2019 7:51 AM by: WES ROMERO SEVERE SEPSIS AND SEPTIC SHOCK BUNDL* [#[id number]] Priority: STAT Class: H ospital Performed Released on: 01/10/2019 7:51 AM [id number] TYPE & SCREEN [#[id number]] Canceled Priority: STAT Class: ER Collect Canceled by GEOVANI, LAB IN [facility] on [facility] Jan 10, 2019 8:59 AM Reason: Other Comment: HEMOLYZED SPECIMEN AIDAL IN ER NOTIFIED @08:42AM. Standing Ord er Information Remaining Occurrences:0/1 Interval:ONE TIME Last released:01/10/2019 Released orders: [facility] Jan 10, 2019 7:29 AM by: WES ROMERO Comment:ENTER SURGERY DATE I F FOR PRE-OP TESTING. [id number] TYPE & SCREEN [#[id number]] Canceled Priority: STAT Class: ER Collect Specimen Collected: 01/10/2019 7:55 AM Resulting Agency: [facility] Test ID: TYSC Canceled by GEOVANI, LAB IN [facility] on [facility] Jan 10, 2019 8:59 AM Reason: O ther Comment: HEMOLYZED SPECIMEN AIDAL IN ER NOTIFIED @08:42AM. Comment:ENTER SURGERY DATE IF FOR PRE-OP TESTING. Released on: 01/10/2019 7:29 AM [id number] TYPE & SCREEN [#[id number]] Priority: STAT Class: ER Collect Standing Order Information Remaining Occurrences:0 /1 Interval:ONE TIME Last released:01/10/2019 Released orders: [facility] Jan 10, 2019 7:51 AM by: WES ROMERO Comment:ENTER SURGERY DATE IF FOR PRE-OP TESTING. YHI9531 TYPE & SCR EEN [#[id number]] Priority: STAT Class: ER Collect Specimen Source: Plasma Specim en Collected: 01/10/2019 11:29 AM Resulting Agency: [facility] Test ID: TYSC Co mment:ENTER SURGERY DATE IF FOR PRE-OP TESTING. Released on: 01/10/2019 7:51 AM EQ130 URINARY CA THETER STRAIGHT [#[id number]] Priority: STAT Class: Hospital Performed Standing Order Inf ormation Remaining Occurrences:0/1 Interval:ONE TIME Last released:01/10/2019 Release d orders: Sat Jan 10, 2019 7:29 AM by: WES ROMERO EQ130 URINARY CATHETER STRAIGHT [#[id number]] Priority: STAT Class: Hospital Performed Released on: 01/10/2019 7:29 AM YFF355 INITIAL PHYSICIAN ORDER: INPATIENT [#[id number]] Priority: Routine Class: ADT Pend Transfer Sta nding Order Information Remaining Occurrences:0/1 Interval:ONE TIME Last released:0 01/10/2019 Released orders: Sat Jan 10, 2019 10:45 AM by: MILI HILLS Status: -> [facility] Inpatient Hospitalization Certified Necessary for the Following [...] -> Extended Care Facility (e.g. Adult Home, Jail, etc.) YQN614 INITIAL PH YSICIAN ORDER: INPATIENT [#[id number]] Priority: Routine Class: ADT Pend Transfer Status: [...] -> Extended Care Facility (e.g. Adult Home, Jail, etc.) Released on: 12/15 10:45 AM COD2 FULL CODE [#[id number]] Priority: STAT Class: H ospital Performed Standing Order Information Remaining Occurrences:N/A-not released Interval :CONTINUOUS [id number] RT--OXIMETRY, SPOT CHECK [#[id number]] Priority: STAT Class: H ospital Performed Standing Order Information Remaining Occurrences:N/A-not released Interval : NEEDED [id number] RT--OXYGEN CANNULA [#[id number]] Priority: STAT Class: H ospital Performed Standing Order Information Remaining Occurrences:N/A-not released Interval :CONTINUOUS Comment:Titrate rate up to 4 L / minute to maintain oxygen saturation at 95 % or greater. For Hypercapnia or COPD patients maintain oxygen saturations at 90%-94% LPM -> 4 Indications for O2? -> HYPOXIA CON5 IP CONSULT TO INFECTIOUS DISEASES [#[id number]] Priority: R outine Class: Hospital Performed Standing Order Information Remaining Occurrences:0/1 Inter seema:ONE TIME Last released:01/10/2019 Released orders: Sat Jan 10, 2019 11:38 AM by: MILI ESCUDERO Reason for Consult: -> Pneumonia Did you call or speak to the consulting provider? -> No Consult To -> Dr Dudley Schedule When? -> TODAY CON5 IP CONSULT TO INFECTIOUS DISEASES [#[id number]] Priority: STAT Class: Hospital Performed Comment:[facility] aware of consult Reason for Con sult: -> Pneumonia Did you call or speak to the consulting provider? -> No Consult To -> Dr Sa matos Schedule When? -> TODAY Released on: 01/10/2019 11:38 AM CON54 IP CONSULT TO PULMONOLOGY [#[id number]] Priority: STAT Class: Hospital Performed Standing Order Information Remainin g Occurrences:0/1 Interval:ONE TIME Last released:01/10/2019 Released orders : [facility] Jan 10, 2019 11:38 AM by: MILI HILLS Reason for Consult: -> acute respiratory failur e with hypoxia and pneumonia Did you call or speak to the consulting provider ? -> No Consult To -> Dr Monae Schedule When? -> TODAY CON54 IP CONSULT TO PULMONOLOGY [#[id number]] Priority: STAT Class: Hospital Performed Comment:aware Reason for Consult: - > acute respiratory failure with hypoxia and pneumonia Did you call or speak to the consulting provider? -> No Consult To -> Dr Monae Schedule When? -> TODAY Released on: 01/10/2019 11:38 GALINAEvelio grimm MR#: [id number] * Rm: 332-02Ht: 5' 2" Wt: 114 lb Code: Prior Iso:Diagnosis:Acute respiratory failure with hypoxia (HCC) [ J96.01]Allergies: No Known Allergies -------- Current as of: 01/10/19 1228 GI=Given IC=IV Complet ed NB=New Bag --albuterol-ipratropium (DUO-NEB) 2.5 MG-0.5 MG/3 ML #[id number] Admin Amount: 3 mL Ordered Dose: 3 mL Route: Nebulization Freq: NOW Start Date: 11/07/18 No administration times (back 96 hours, ahead 96 hours). ------methylPREDNISolone (PF) (Solu-MEDROL) injection 125 mg #[id number] Admin Amount: 2 mL = 125 mg of 125 mg/2 mL Ordered Dose: 125 mg Route: Int raVENous Freq: NOW Start Date: 11/07/18 No administration times (back 96 hours, ahe ad 96 hours). ------cefTRIAXone (ROCEPHIN) 1 g in 0.9% sodium chloride (MBP/ADV) 50 m L M*#[id number] Admin Amount: 1 g Ordered Dose: 1 g Route: IntraVENous Freq: NOW Start Date: 11/07/18 Rate: 100 mL/hr Duration: 30 Minutes No administration times (back 96 hours, ahead 96 hours). ------azithromycin (ZITHROMAX) 500 mg in NS 250 mL #[id number] Admin Amount: 250 mL = 500 mg of 500 mg/250 mL Ordered Dose: 500 mg Ro [place]: IntraVENous Freq: NOW Start Date: 11/07/18 Rate: 250 mL/hr Dura tion: 60 Minutes No administration times (back 96 hours, ahead 96 hours). ------iopamidol (ISOVUE-370) 76 % injection 100 mL #[id number] Admin Amount: 100 mL Ordered Dose: 100 mL Route: IntraVENous Freq: RAD ONC E Start Date: 11/07/18 No administration times (back 96 hours, ahead 96 hours). ------sodium chloride 0.9 % bolus infusion 500 mL #[id number] Admin Amount: 500 mL Ordered Dose: 500 mL Route: IntraVENous Freq: ONCE Start Date: 11/08/18 Rate: 666.7 mL/hr Duration: 45 Minutes No administr ation times (back 96 hours, ahead 96 hours). ------ALPRAZolam (XANAX) tablet 0.25 mg #[id number] Admin Amount: 1 Tab (1 x 0.25 mg Tab) Ordered Dose: 0.25 mg Route: Ora l Freq: DAILY Start Date: 11/08/18 No administration times (back 96 hours, ahe ad 96 hours).Evelio Carlin MR#: [id number] * Rm: 332-02Ht: 5' 2" Wt: 1 14 lb Code: Prior Iso:Diagnosis:Acute respiratory failure with hypoxia (HCC) [J96.01]Aller gies: No Known Allergies -------- Current as of: 01/10/19 1228 GI=Given IC=IV Complet ed NB=New Bag --cefTRIAXone (ROCEPHIN) 1 g in 0.9% sodium chloride (MBP/ADV) 50 mL *#[id number] Admin Amount: 1 g Ordered Dose: 1 g Route: IntraVENous Freq: EVERY 24 HOURS Start Date: 11/08/18 Rate: 100 mL/hr Duration: 30 Minutes No administration times (back 96 hours, ahead 96 hours). ------azithromycin (ZITHROMAX) 500 mg in 0.9% sodium chloride 250 mL IV PB #[id number] Admin Amount: 500 mg Ordered Dose: 500 mg Route: IntraVENous Freq: EVERY 24 HOURS Start Date: 11/08/18 Rate: 250 mL/hr Duration: 60 Minutes No administrati on times (back 96 hours, ahead 96 hours). ------LORazepam (ATIVAN) injection 0.5 mg #[id number] Admin Amount: 0.25 mL = 0.5 mg of 2 mg/mL Ordered Dose: 0.5 mg Ro [place]: IntraVENous Freq: ONCE Start Date: 11/10/18 No administration times (back 96 hours, ahead 96 hours). ------LORazepam (ATIVAN) injection 2 mg #[id number] Admin Amount: 1 mL = 2 mg of 2 mg/mL Ordered Dose: 2 mg Route: Int raVENous Freq: ONCE Start Date: 11/11/18 No administration times (back 96 hours, ahe ad 96 hours). ------LORazepam (ATIVAN) injection 0.5 mg #[id number] Admin Amount: 0.25 mL = 0.5 mg of 2 mg/mL Ordered Dose: 0.5 mg Ro [place]: IntraVENous Freq: ONCE Start Date: 11/11/18 No administration times (back 96 hours, ahead 96 hours). ------acetaminophen (OFIRMEV) infusion 1,000 mg #[id number] Admin Amount: 100 mL = 1,000 mg of 1,000 mg/100 mL Ordered Dose: 1,000 mg Ro [place]: IntraVENous Freq: EVERY 6 HOURS Start Date: 11/17/18 Rate: 400 mL/hr Durat ion: 15 Minutes No administration times (back 96 hours, ahead 96 hours). ------HYDROmorphone (DILAUDID) syringe 0.5 mg #[id number] Admin Amount: 0.5 mL = 0.5 mg of 0.5 mg/0.5 mL Ordered Dose: 0.5 mg Ro [place]: IntraVENous Freq: EVERY 6 HOURS NEEDED Start Date: 11/17/18 No administration times (back 96 hours, ahead 96 hours).Evelio Carlin MR#: [id number] * Rm: 332-02Ht: 5' 2" Wt: 114 lb Code: Prior Iso:Diagnosis:Acute respiratory failure with hypoxia ([facility]) [ J96.01]Allergies: No Known Allergies -------- Current as of: 01/10/19 1228 GI=Given IC=IV Complet ed NB=New Bag --acetaminophen (OFIRMEV) infusion 1,000 mg #[id number] Admin Amount: 100 mL = 1,000 mg of 1,000 mg/100 mL Ordered Dose: 1,000 mg Ro [place]: IntraVENous Freq: EVERY 6 HOURS Start Date: 11/18/18 Rate: 400 mL/hr Durat ion: 15 Minutes No administration times (back 96 hours, ahead 96 hours). ------piperacillin-tazobactam (ZOSYN) 3.375 g in 0.9% sodium chloride (MBP*#[id number] Admin Amount: 3.375 g Ordered Dose: 3.375 g Route: IntraVENous Freq: EVERY 8 HOURS Start Date: 11/18/18 Rate: 25 mL/hr Duration: 240 Minutes No administra tion times (back 96 hours, ahead 96 hours). ------potassium chloride 10 mEq in 100 ml IVPB #[id number] Admin Amount: 100 mL = 10 mEq of 10 mEq/100 mL Ordered Dose: 10 mEq Ro [place]: IntraVENous Freq: EVERY 1 HOUR Start Date: 11/19/18 Rate: 100 mL/hr Durat ion: 60 Minutes No administration times (back 96 hours, ahead 96 hours). ------diatrizoate tiffani-diatrizoat sod (RUTHYGASTROVIEW,GASTRO GRAFIN) 66-10 % *#[id number] Admin Amount: 30 mL Ordered Dose: 30 mL Route: Oral Freq: RAD ONCE Start Date: 11/19/18 No administration times (back 96 hours, ahead 96 hours). ------acetaminophen (OFIRMEV) infusion 1,000 mg #[id number] Admin Amount: 100 mL = 1,000 mg of 1,000 mg/100 mL Ordered Dose: 1,000 mg Ro [place]: IntraVENous Freq: EVERY 6 HOURS Start Date: 11/21/18 Rate: 400 mL/hr Durat ion: 15 Minutes No administration times (back 96 hours, ahead 96 hours). ------acetaminophen (OFIRMEV) infusion 1,000 mg #[id number] Admin Amount: 100 mL = 1,000 mg of 1,000 mg/100 mL Ordered Dose: 1,000 mg Ro [place]: IntraVENous Freq: EVERY 6 HOURS Start Date: 11/22/18 Rate: 400 mL/hr Dura tion: 15 Minutes No administration times (back 96 hours, ahead 96 hours). ------LORazepam (ATIVAN) tablet 0.5 mg #[id number] Admin Amount: 1 Tab (1 x 0.5 mg Tab) Ordered Dose: 0.5 mg Route: Per G Tube Freq: EVERY BEDTIME Start Date: 11/23/18 No administration times (back 96 hours, e ad 96 hours).Evelio Carlin MR#: [id number] * Rm: 332-02Ht: 5' 2" Wt: 1 14 lb Code: Prior Iso:Diagnosis:Acute respiratory failure with hypoxia ([facility]) [J96.01]Aller gies: No Known Allergies -------- Current as of: 01/10/19 1228 GI=Given IC=IV Complet ed NB=New Bag --vancomycin (VANCOCIN) 1,250 mg in 0.9% sodium chloride 250 mL IVPB #[id number] Admin Amount: 1,250 mg Ordered Dose: 1,250 mg Route: IntraVENous Freq: EVERY 12 H OURS Start Date: 11/24/18 Rate: 125 mL/hr Duration: 120 Minutes No administrati on times (back 96 hours, ahead 96 hours). ------potassium chloride (KLOR-CON) packet for solution 20 mEq #[id number] Admin Amount: 1 Packet (1 x 20 mEq Packet) Ordered Dose: 20 mEq Ro [place]: Oral Freq: 2 TIMES DAILY WITH MEALS Start Date: 11/25/18 No administration times (back 96 hours, ahe ad 96 hours). ------piperacillin-tazobactam (ZOSYN) 3.375 g in 0.9% sodium chloride (MBP*#[id number] Admin Amount: 3.375 g Ordered Dose: 3.375 g Route: IntraVENous Freq: NOW Start Date: 12/12/18 Rate: 200 mL/hr Duration: 30 Minutes No administra tion times (back 96 hours, ahead 96 hours). ------albuterol-ipratropium (DUO-NEB) 2.5 MG-0.5 MG/3 ML #[id number] Admin Amount: 3 mL Ordered Dose: 3 mL Route: Nebulization Freq: NOW Start Date: 12/12/18 No administration times (back 96 hours, ahead 96 hours). ------methylPREDNISolone (PF) (Solu-MEDROL) injection 125 mg #[id number] Admin Amount: 2 mL = 125 mg of 125 mg/2 mL Ordered Dose: 125 mg Route: Int raVENous Freq: NOW Start Date: 12/12/18 No administration times (back 96 hours, ahe ad 96 hours). ------albuterol-ipratropium (DUO-NEB) 2.5 MG-0.5 MG/3 ML #[id number] Admin Amount: 3 mL Ordered Dose: 3 mL Route: Nebulization Freq: NOW Start Date: 12/12/18 No administration times (back 96 hours, ahead 96 hours). ------albuterol-ipratropium (DUO-NEB) 2.5 MG-0.5 MG/3 ML #[id number] Admin Amount: 3 mL Ordered Dose: 3 mL Route: Nebulization Freq: NOW Start Date: 12/12/18 No administration times (back 96 hours, ahead 96 hours).GabeIvelisse MR#: [id number] * Rm: 332-02Ht: 5' 2" Wt: 114 lb Code: Prior Iso:Diagnosis:Acute respiratory failure with hypoxia ([facility]) [J96.01]Allergies: No Known Allergies -------- Current as of: 01/10/19 1228 GI=Given IC=IV Complet ed NB=New Bag -- Followed by [facility] (Order count: 2)sodium chloride 0.9 % jeff aspen infusion 1,000 mL #[id number] Admin Amount: 1,000 mL Ordered Dose: 1,000 [...] chloride 0.9 % bolus infusion 593 mL #[id number] Admin Amount: 593 mL Ordere d Dose: 593 mL Route: IntraVENous Freq: ONCE Start Date: 12/12/18 No ad ministration times (back 96 hours, ahead 96 hours). ------iopamidol (ISOVUE-370) 76 % injection 125 mL #[id number] Admin Amount: 125 mL Ordered Dose: 125 mL Route: IntraVENous Freq: RAD ONC E Start Date: 12/17/18 No administration times (back 96 hours, ahead 96 hours). ------lidocaine (XYLOCAINE) 20 mg/mL (2 %) injection 100 mg #[id number] Admin Amount: 5 mL = 100 mg of 2,000 mg/100 mL Ordered Dose: 5 mL Ro [place]: IntraDERMal Freq: ONCE Start Date: 12/19/18 No administration times (back 96 hours, ahead 96 hours). ------oxyCODONE-acetaminophen (PERCOCET) 5-325 mg per tablet 1 Tab #[id number] Admin Amount: 1 Tab Ordered Dose: 1 Tab Route: Oral Freq: EVERY 8 HOURS NEEDED Start Date: 12/19/18 No administration times (back 96 hours, ahead 96 hours). ------furosemide (LASIX) injection 20 mg #[id number] Admin Amount: 2 mL = 20 mg of 10 mg/mL Ordered Dose: 20 mg Ro [place]: IntraVENous Freq: ONCE Start Date: 12/26/18 No administration times (back 96 hours, ahead 96 hours). ------furosemide (LASIX) injection 20 mg #[id number] Admin Amount: 2 mL = 20 mg of 10 mg/mL Ordered Dose: 20 mg Route: Int raVENous Freq: ONCE Start Date: 12/29/18 No administration times (back 96 hours, e ad 96 hours).Evelio Carlin MR#: [id number] * Rm: 332-02Ht: 5' 2" Wt: 1 14 lb Code: Prior Iso:Diagnosis:Acute respiratory failure with hypoxia ([facility]) [J96.01]Aller gies: No Known Allergies -------- Current as of: 01/10/19 1228 GI=Given IC=IV Complet ed NB=New Bag --sodium chloride (NS) flush 5-10 mL #[id number] Admin Amount: 5-10 mL Ordered Dose: 5-10 mL Route: IntraVENous Freq: NEEDED Start Date: 01/10/19 No administration times (back 96 hours, ahead 96 hours). ------albuterol-ipratropium (DUO-NEB) 2.5 MG-0.5 MG/3 ML #[id number] Admin Amount: 3 mL Ordered Dose: 3 mL Route: Nebulization Freq: NOW Start Date: 01/10/19 Administration times (back 96 hours, ahead 96 hours): 01/10/19: 0859GI -----methylPREDNISolone (PF) (Solu-MEDROL) injection 125 mg #[id number] Admin Amount: 2 mL = 125 mg of 125 mg/2 mL Ordered Dose: 125 mg Route: Int AmarisENous Freq: NOW Start Date: 01/10/19 Administration times (back 96 hours, e ad 96 hours): 01/10/19: 0855GI -----albuterol-ipratropium (DUO-NEB) 2.5 MG-0.5 MG/3 ML #[id number] Admin Amount: 3 mL Ordered Dose: 3 mL Route: Nebulization Freq: NOW Start Date: 01/10/19 Administration times (back 96 hours, ahead 96 hours): 01/10/19: 0856GI -----acetaminophen (TYLENOL) tablet 650 mg #[id number] Admin Amount: 2 Tab (2 x 325 mg Tab) Ordered Dose: 650 mg Route: Per G Tub e Freq: NOW Start Date: 01/10/19 Administration times (back 96 hours, e ad 96 hours): 01/10/19: 0856GI -----piperacillin-tazobactam (ZOSYN) injection 3.375 g #[id number] Admin Amount: 3.375 g Ordered Dose: 3.375 g Route: IntraVENous Freq: NOW Start Date: 01/10/19 Administration times (back 96 hours, ahead 96 hours): 01/10/19: 0856GI -----vancomycin (VANCOCIN) 1,000 mg in 0.9% sodium chloride 250 mL IVPB #[id number] Admin Amount: 1,000 mg Ordered Dose: 1,000 mg Route: IntraVENous Freq: ONCE Start Date: 01/10/19 Rate: 125 mL/hr Duration: 120 Minutes Administr ation times (back 96 hours, ahead 96 hours): 01/10/19: 0918NB Evelio Mccauley#: [id number] * Rm: 332-02Ht: 5' 2" Wt: 114 lb Code: Prior Iso:Diagnosis:Ac [place] respiratory failure with hypoxia (HCC) [J96.01]Allergies: No Known Allergies -------- Current as of: 01/10/19 1228 GI=Given IC=IV Complet ed NB=New Bag -- Followed by [facility] (Order count: 2)sodium chloride 0.9 % jeff aspen infusion 1,000 mL #[id number] Admin Amount: 1,000 mL Ordered Dose: 1,000 [...] chloride 0.9 % bolus infusion 551 mL #[id number] Admin A mount: 551 mL Ordered Dose: 551 mL Route: IntraVENous Freq: ONCE Start Date: 01/10/19 Administration times (back 96 hours, ahead 96 hours): 01/10/19: 0917NB 1006IC -----0.9% sodium chloride (MBP/ADV) infusion #[id number] Ordered Dose: Route: Freq: Start D ate: 01/10/19 Administration times (back 96 hours, ahead 96 hours): 01/10/19: 0859GI -----0.9% sodium chloride infusion #[id number] Ordered Dose: 50 mL/hr Route: IntraVENous Freq: [...] [place] DODetails:Comments:Contact Info:[address] [address] [phone] Name Value Range Interpretation Code Description Data Harriett rce(s) Supporting Document(s ) ID Date Data Source [id number] 01/10/2019 12:13:32 PM EDT [facility] TRANSFER - OUT REPORT:Verbal report give [...] Supporting Document(s ) ID Date Data Source [id number] 01/10/2019 12:01:15 PM EDT [facility] Called T3 to give report, informed accep clarissa PITTS will call back. Name Value Range Interpretation Code Description Data Harriett rce(s) Supporting Document(s ) ID Date Data Source [id number] 01/10/2019 03:21:47 PM EDT [facility] Name Value Range Interpretation Description Data Sup porting Code Source(s) Document(s ) Specimen [facility] - Good expiration 9 [facility] of Blood Hospital ABO and Rh [facility] - Good group [Type] [facility] in Blood Hospital Blood group [facility] - Good antibodies [facility]astrianism identified in Hospital Serum or Plasma ID Date Data Source [id number] 01/10/2019 12:06:09 PM EDT [facility] Name Value Range Interpretation Description Data Sup porting Code Source(s) Document(s ) Lactate 0.9 0.4-2.0 [facility] - Good [Moles/volu MMOL/L [facility]] in Hospital Serum or Plasma ID Date Data Source [id number] 01/10/2019 11:26:35 AM EDT [facility] SBAR report received from NANCY Phillips. Ass umed care of pt at this time. Repeatlactic drawn now by activity therapy teacher. Name Value Range Interpretation Code Description Data Harriett rce(s) Supporting Document(s ) ID Date Data Source [id number] 01/10/2019 11:26:30 AM T [facility] Verbal report given to ED NANCY Torrez. Name Value Range Interpretation Code Description Data Harriett rce(s) Supporting Document(s ) ID Date Data Source [id number] 01/11/2019 11:01:43 AM EDT [facility] Name Value Range Interpretation Description Data Sup porting Code Source(s) Document(s ) Service comment [facility] Bacteria [facility] - Good identified in [facility]oroastrianism Unspecified Hospital specimen by Culture ID Date Data Source [id number] 01/10/2019 08:54:14 AM EDT [facility] XR CHEST PORTClinical data: SepsisPriors : [...] Supporting Document(s ) ID Date Data Source [id number] 01/10/2019 10:10:05 AM EDT [facility] Name Value Range Interpretation Description Data Sup porting Code Source(s) Document(s ) Color of Urine YEL [facility] Appearance of CLEAR Abnormal (applies [facility] - Urine to non-numeric Good results) [facility] Specific gravity 1.016 1.003-1. [facility] - of Urine by 030 Good Refractometry [facility] pH of Urine by 7.0 4.6-8.0 [facility] - Test strip Good [facility] Protein NEG [facility] - [Mass/volume] in Good Urine by Test [facility] Glucose NEG [facility] - [Mass/volume] in Good Urine by Zoroastrianism Automated test [facility] strip Ketones NEG [facility] - [Presence] in Good Urine by Zoroastrianism Automated test [facility] strip Bilirubin.total NEG [facility] - [Presence] in Good Urine [facility] Hemoglobin NEG [facility] - [Presence] in Good Urine by Test [facility] Urobilinogen 0.2 0.2-1.0 [facility] - [Presence] in EU/dL Good Urine by Zoroastrianism Automated test [facility] strip Nitrite NEG [facility] - [Presence] in Good Urine by Zoroastrianism Automated test [facility] strip Leukocyte NEG [facility] - esterase Good [Presence] in Zoroastrianism Urine by Hospital Automated test strip Leukocytes 0-5 [facility] - [Presence] in Good Urine sediment [facility]ism by Light Hospital microscopy Erythrocytes 0-3 [facility] - [#/area] in Good Urine sediment [facility]ast[facility]ism by Microscopy Hospital high power field Epithelial cells 0-10 [facility] - [#/area] in Good Urine sediment Zoroastrianism by [facility] Hospital high power field Bacteria NONE [facility] - [Presence] in Good Urine sediment Zoroastrianism by Light [facility] microscopy Casts [Presence] NONE Abnormal (applies [facility] - in Urine to non-numeric Good sediment by results) [facility] HYALINE Crystals [Presence] in Urine sediment by NONE [facility] Light microscopy ID Date Data Source [id number] 01/10/2019 08:00:17 AM EDT [facility] Patient to ED via EMS: lethargic, [...] Supporting Document(s ) ID Date Data Source [id number] 01/15/2019 08:38:44 AM EDT [facility] Name Value Range Interpretation Description Data Sup porting Code Source(s) Document(s ) Service comment [facility] Bacteria [facility] identified in [facility]oroastrianism Unspecified Hospital specimen by Culture ID Date Data Source [id number] 01/10/2019 07:48:31 AM EDT [facility] Name Value Range Interpretation Description Data Sup porting Code Source(s) Document(s ) pH of Arterial 7.46 7.35-7.4 Above high normal [facility] - Good blood 5 [facility] Carbon dioxide 53 mmHg 32-48 Above high normal [facility] - Good [Partial Zoroastrianism pressure] in Hospital Arterial blood Oxygen 66 mmHg 83-108 Below low normal [facility] - Good [Partial Zoroastrianism pressure] in Hospital Arterial blood Carbon 39 19-24 Above high normal [facility] - Good dioxide, total mmol/L [facility]astrianism [Moles/volume] Hospital in Arterial blood Bicarbonate 38 21-28 Above high normal [facility] - Go od [Moles/volume] mmol/L [facility] in Arterial Hospital blood Oxygen 95 % 94-98 [facility] - Good saturation in [facility] Base excess in 11.8 0-3 Above high normal [facility] - Good Arterial blood mmol/L [facility]astrianism by calculation Hospital Body site [facility] NASAL O24 [id number] ID Date Data Source [id number] 01/10/2019 10:55:53 AM EDT [facility] Name Value Range Interpretation Description Data Sup porting Code Source(s) Document(s ) Leukocytes 10.4 4.8-10.6 [facility] - [#/volume] in K/uL Good Blood by [facility]oroastrianism Automated count Hospital Erythrocytes 3.58 4.70-6.0 Below low normal [facility] - [#/volume] in M/uL 0 Good Blood by [facility]oroastrianism Automated count Hospital Hemoglobin 12.0 14.0-18. Below low normal [facility] - [Mass/volume] in g/dL 0 [facility] Hematocrit 36.2 % 42.0-52. Below low normal [facility] - [Volume 0 Good Fraction] of Zoroastrianism Blood by Hospital Automated count Erythrocyte mean 101.1 FL 81.0-94. Above high normal [facility] - corpuscular 0 Good volume [Entitic Zoroastrianism volume] by Hospital Automated count Erythrocyte mean 33.5 PG 27.0-35. [facility] - corpuscular 0 Good hemoglobin Zoroastrianism [Entitic mass] [facility] by Automated count Erythrocyte mean 33.1 30.7-37. [facility] - corpuscular g/dL 3 Good hemoglobin [facility] [Mass/volume] by Automated count Erythrocyte 16.4 % 11.5-14. Above high normal [facility] - distribution 0 Good width [Ratio] by Zoroastrianism Automated count Hospital Platelets 233 K/uL 130-400 [facility] - [#/volume] in Good Blood by [facility]oroastrianism Automated count Hospital Platelet mean 8.9 FL 9.2-11.8 Below low normal [facility] - volume [Entitic Good volume] in Blood [facility] Automated Hospital count Segmented 85 % 48.0-72. Above high normal [facility] - neutrophils/100 [address] Good [address] in [facility] Lymphocytes/100 8 % 18.0-40. Below low normal [facility] - leukocytes in 0 [facility] Blood [facility] Monocytes/100 5 % 2.0-12.0 [facility] - leukocytes in [facility] Eosinophils/100 2 % 0.0-7.0 [facility] - leukocytes in [facility] Basophils/100 0 % 0.0-3.0 [facility] - leukocytes in [facility] Segmented 8.9 K/UL 1.5-6.6 Above high normal [facility] - neutrophils Good [#/volume] in [facility] Lymphocytes 0.8 K/UL 1.5-3.5 Below low normal [facility] - [#/volume] in [facility] Monocytes 0.6 K/UL 0.0-1.0 [facility] - [#/volume] in [facility] Eosinophils 0.2 K/UL 0.0-0.7 [facility] - [#/volume] in [facility] Basophils 0.0 K/UL 0.0-0.1 [facility] - [#/volume] in [facility] Differential [facility] - cell count [facility] method [facility] Immature 0 % 0.0-2.0 [facility] - granulocytes/100 Good leukocytes in [facility]oroastrianism Blood by Hospital Automated count 1+MACROCYTOSIS Platelet adequacy [Presence] in Blood by [facility] Light microscopy ID Date Data Source [id number] 01/10/2019 09:03:53 AM EDT [facility] Name Value Range Interpretation Description Data Sup porting Code Source(s) Document(s ) Natriuretic 28 pg/mL 0-100 [facility] - [facility] peptide B Zoroastrianism [Mass/volume] [facility] in Serum or Plasma ID Date Data Source [id number] 01/10/2019 08:36:52 AM EDT [facility] Name Value Range Interpretation Description Data Sup porting Code Source(s) Document(s ) Lactate 1.9 0.4-2.0 [facility] - [facility] [Moles/volu MMOL/L [facility]] in Hospital Serum or Plasma ID Date Data Source [id number] 01/10/2019 08:30:01 AM EDT [facility] Name Value Range Interpretation Description Data Sup porting Code Source(s) Document(s ) Troponin 0.00-0.05 [facility] - Good I.cardiac [facility]astrianism [Mass/volume Hospital ] in Serum or Plasma [...] to 1.50 ng/mL ID Date Data Source [id number] 01/10/2019 08:30:01 AM EDT [facility] Name Value Range Interpretation Description Data Sup porting Code Source(s) Document(s ) Sodium 126 136-145 Below low normal [facility] - Good [Moles/volume] mmol/L [facility]ism in Serum or Hospital Plasma Potassium 4.5 3.5-5.1 [facility] - [facility] [Moles/volume] mmol/L [facility]ism in Serum or Hospital Plasma Chloride 87 98-107 Below low normal [facility] - Good [Moles/volume] mmol/L [facility]ism in Serum or Hospital Plasma Carbon 38 21-32 Above high normal [facility] - Good dioxide, total mmol/L [facility]astrianism [Moles/volume] Hospital in Serum or Plasma Anion gap in 6 mmol/L 10-20 Below low normal [facility] - Go od Serum or [facility]ism Plasma Hospital Glucose 114 74-106 Above high normal [facility] - Good [Mass/volume] mg/dL [facility]rianism in Serum or Hospital Plasma Urea nitrogen 7 mg/dL 7-18 [facility] - [facility] [Mass/volume] Zoroastrianism in Serum or Hospital Plasma Creatinine 0.48 0.70-1.3 Below low normal [facility] - Good [Mass/volume] mg/dL 0 [facility]rianism in Serum or Hospital Plasma Glomerular >60 [facility] - Good filtration Zoroastrianism rate/1.73 sq M Hospital predicted among blacks [Volume Rate/Area] in Serum or Plasma by Creatinine-bas ed formula (MDRD) Glomerular >60 [facility] - Good filtration Zoroastrianism rate/1.73 sq M Hospital predicted among non-blacks [Volume Rate/Area] in Serum or Plasma by Creatinine-bas ed formula (MDRD) (NOTE)Estimated GFR is calculated using the Modification of Diet in RenalDisease (MDRD) Study equation, reported for both Americans(GFRAA) and non- Americans (GFRNA), and normalized to 1.7 3f7jklk surface area. The physician must decide which [...] 8.5-10.1 [facility] - Good Serum or Plasma [facility] ital Bilirubin.total 0.2 mg/dL 0.2-1.0 [facility] - Good [Mass/volume] in Serum or [facility] Plasma Alanine aminotransferase 12 U/L 13-61 Below low normal [facility] - Good [Enzymatic activity/volume] [facility] in Serum or Plasma Aspartate aminotransferase 13 U/L 15-37 Below low normal [facility] - Good [Enzymatic activity/volume] [facility] in Serum or Plasma by With P-5'-P Alkaline phosphatase 61 U/L 45-117 [facility] - G ood [Enzymatic activity/volume] [facility] in Serum or Plasma Protein [Mass/volume] in 7.4 g/dL 6.4-8.2 [facility] - Good Serum or Plasma [facility] ital Albumin [Mass/volume] in 2.3 g/dL 3.5-4.7 Below low normal [facility] - Good Serum or Plasma by [facility] Bromocresol purple (BCP) dye binding method Globulin [Mass/volume] in 5.1 g/dL 1.7-4.7 Above high [facility] HS - Good Serum by [facility] Albumin/Globulin [Mass 0.5 0.7-2.8 Below low normal [facility] - Good Ratio] in Serum or Plasma [facility] ID Date Data Source [id number] 01/10/2019 08:30:01 AM EDT [facility] Name Value Range Interpretation Description Data Sup porting Code Source(s) Document(s ) Creatine 29 U/L 39-308 Below low normal [facility] - Good kinase Zoroastrianism [Enzymatic Hospital activity/volu me] in Serum or Plasma ID Date Data Source [id number] 01/10/2019 08:28:16 AM EDT [facility] Name Value Range Interpretation Description Data Sup porting Code Source(s) Document(s ) Prothrombin 10.3 sec 9.4-11.1 [facility] time (PT) [facility] INR in 1.0 0.8-1.2 B[facility] - Good Platelet poor Zoroastrianism plasma by [facility] Coagulation assay ID Date Data Source [id number] 01/10/2019 08:24:14 AM EDT [facility] Name Value Range Interpretation Description Data Sup porting Code Source(s) Document(s ) aPTT in 25.3 SEC 21.0-28. [facility] - Good Platelet poor 0 [facility]oroastrianism plasma by Hospital Coagulation assay Therapeutic Range = 42.0-60.0 secs ID Date Data Source [id number] 01/15/2019 08:38:41 AM EDT [facility] Value Range Interpretation Description Data Sup porting Code Source(s) Document(s ) Service comment [facility] Bacteria [facility] identified in Zoroastrianism Unspecified Hospital specimen by Culture ID Date Data Source [id number] 12/30/2018 09:31:27 PM EDT [facility] Physician Discharge SummaryPatient ID:Lina [id number] y.o.1950dmit date: 12/12/2018Discharge date:Discharge Diagnoses: Principal Diagnosis [...] fever, hypoxia,met abolic acidosis and hypothermia from [facility].He has medical history of Dysphagia with re [...] bolus TF and hopefully avoiding recurrent aspirations.Disposition: longterm care facilityPatient Instructions:Current Discharge Medication ListSTART taking [...] Supporting Document(s ) ID Date Data Source [id number] 12/30/2018 08:38:56 PM EDT [facility] Patient picked up by [employer] for transport to [place]. Vitalsstable, patient breathing comfortably, O2 sat hi gh 90's on 4L. Left at 2019 Name Value Range Interpretation Code Description Data [facility] rce(s) Supporting Document(s ) ID Date Data Source [id number] 12/30/2018 06:53:58 PM EDT [facility] Discharge medications reviewed with home day care provider and appropriate educationalmaterials and side effects teaching were provided. To [facility] Discharge Medication ListSTART taking these medications [...] a day.med list and instructs t o [place] Name Value Range Interpretation Code Description Data [facility] rce(s) Supporting Document(s ) ID Date Data Source [id number] 12/30/2018 06:50:10 PM EDT [facility] sensibar crushed and fully dissolved via peg Ca++ levels stable Calm lesscongested Name Value Range Interpretation Code Description Data [facility] rce(s) Supporting Document(s ) ID Date Data Source [id number] 12/30/2018 06:42:45 PM EDT [facility] questram started to bulk up loosish Sto ols. Bolus fdgs tolerated Turned andrepositioned freq Peg site less redde nataly suture intact Name Value Range Interpretation Code Description Data [facility] rce(s) Supporting Document(s ) ID Date Data Source [id number] 12/30/2018 03:46:56 PM EDT [facility] PULMONARY/ CCM- Consult NotePatient: Ivelisse Carlin Sex: male DOA: 12/12/2018Date of : 1 Age: 68 y.o. LOS: LOS: 18 daysHPI: kassie Carlin is a 68 y.o. male who has been seen for respfailure.pneumonia,recently discharge d..Patient with MR,aspiration pneumonia,dysphagia,s/p peg placement,CO PD,pulmonaryembolism,schizophrenia was transferred from the intermediate for fe eka594.3,shortness of breath and tachycardia.Patient is non verbal,unable [...] MG-0 .5 MG/3 ML, 3 mL, Nebulization, [id number], Krystian Monae MD, 3 mL at 12/30/18 [...] EPAKENE) 250 mg/5 mL (5 mL) oral aatdlygh568 mg, 750 mg, Per G Tube, BID, [...] 12/30/18 07 - 12/31/18 0659Shift 699- 1858 6572-9322 24 Hour Total 5569-9063 0820-2576 24 Hour TotalINTAKENG/GT 600 8 35 1435 390 390 Water Flush Volume (mL) (PEG/Gastrostomy Tube 12/12/18) 75 75 1 50 150 Medication Volume (PEG/Gastrostomy Tube 12/12/18) 60 60 Intake (ml) (PEG/ Gastrostomy Tube 12/12/18) 791 706 2001 240 240Shift Total(mL/kg) 600(11.4) 835(16.1 ) 1435(27.7) [...] the last 72 hours.Cultures:No results found for: [employer] SALES MANAGER SLab ResultsComponent Value Date/Time Culture result: NO [...] Name Value Range Interpretation Code Description Data [facility] rce(s) Supporting Document(s ) ID Date Data Source [id number] 12/30/2018 03:39:18 PM EDT [facility] Care Management InterventionsPCP Verifie d by CM: Yes(Dr. Mili Hills)Mode of Transport at Discharge: BLSTransition of Care Consult (CM Consult): Discharge PlanningMyChart Signup: NoDischarge Dura ble Medical Equipment: NoPhysical Therapy Consult: NoOccupational Therapy Consult: NoSpeech Therapy Consult: NoCurrent Support Network: Nursing Facility([facility] )Plan discussed with Pt/Family/Caregiver: YesFreedom of Choic e Offered: YesVeteran Resource Information Provided?: RefusedDischarge LocationDis harge Placement: [facility] facility(LTR at Only)Pt discharging back to [facility] where he is a LTR via [address] [facility] at 8pm. RN is aware. spoke wit h pt's family members sister and zfzuzut-dn-ubo viatelephone at length wh o are aware and agreeable to discharge today. Spoke withfacility liaison Sandra who is aware and agreeable to accepting pt back and totransport time arranged. Name Value Range Interpretation Code Description Data [facility] rce(s) Supporting Document(s ) ID Date Data Source [id number] 12/30/2018 02:11:06 PM EDT [facility] Relevant ProblemsNo relevant active prob lemsAnesthetic [...] Supporting Document(s ) ID Date Data Source [id number] 12/30/2018 12:19:08 PM EDT [facility] Spoke with Only liaison, pt is ac cepted to return for discharge today.Spoke with MD Hills who plans to discharge pt . Apportable arranged for 4pm. Name Value Range Interpretation Code Description Data Harriett rce(s) Supporting Document(s ) ID Date Data Source [id number] 12/30/2018 12:05:50 PM EDT [facility] Resps quiet oral care and suction Mitts on for safety pt tends to "hit self" inface. Incont loose bm Name Value Range Interpretation Code Description Data [facility] rce(s) Supporting Document(s ) ID Date Data Source [id number] 12/30/2018 12:04:13 PM EDT [facility] Cardiology Progress Note12/30/2018 11:37 AMAdmit Date: [...] T3U, TSH, TSHEXT, TSHEXTMicrobiology Recent Labs 123 [id number] NO GROWTH AFTER 16 HOUR S 10,000 [...] CARLIN THIS IS AFINAL REPORT FROM IMAGING RESIDENTIAL SALES REPRESENTATIVE DATE OF SERVICE: 2018-12 01:22:40 IMAGES:[id number] EXAM: [...] 12/18/2018 04:49 GINA Verde Please call Imaging Canal Structure Operator [phone] with questions. This report was electronically signed by: Tala MENDEZ 12/18/2018 04: 50 [facility] Chest Wo ContResult Date: 12/13/2018History: Respiratory difficulty [...] coronal, and 3-Dreconstructed images obtained on an [employer] workstation are submitted. Noprior studies are available [...] placed on the t able in the fmprv-wlrn-lqvo decubitus position.CT scanning was performed locat ion [...] location.Attempts were made to pass an 8 [place] pigtail catheter throug h this location.However, patient [...] leukocytosis Technique: Portable chest x-ray 12/29/2018 11:01 [facility] omparison: 12/25/2018. FINDINGS: There is a right [...] QTC Calculation (Bezet) 509 ms Calculated P [place] 62 degrees Calculated R [place] 65 degrees Calculated T [place] 66 degrees Diagnosis Sinus rhythmIVCD, consider atypical [...] - Present COPD (chronic obstructive pulmonary disease) ([facility]) ICD-10-CM: J44.9ICD-9-CM: 496 11/08/2018 - Present Acute respiratory di stress ICD-10-CM: R06.03ICD-9-CM: 518.82 11/08/2018 - Present Pneumonia ICD-10-CM: J18.9ICD-9-CM: 486 11/08/2018 - Present COPD exacerbation ([facility]) ICD-10-CM: J44.1ICD-9 -CM: 491.21 11/08/2018 - Present Paraesophageal hiatal hernia ICD-10-CM: K44.9ICD-9-CM: 553.3 09/26/2015 - PresentSEPSISPNEUMONIACOPDPLEURAL EFFUSI ONFLUID OVERLOADHYPERPARATHYROIDMENTALLY CHALLENGEDSEIZURE DISORDERPlan:Lasix prn F/u EKG not donePulmonary/IDFor J tube through GT per Christina Cross mber 2018 Name Value Range Interpretation Code Description Data Harriett rce(s) Supporting Document(s ) ID Date Data Source [id number] 12/30/2018 12:10:49 PM EDT [facility] Name Value Range Interpretation Description Data Sup porting Code Source(s) Document(s ) Glucose 113 MG/DL 65-110 Above high normal [facility] - Good [Mass/volume] [facility]oroastrianism in Blood by Hospital Automated test strip ID Date Data Source [id number] 12/30/2018 11:13:31 AM EDT [facility] ID Progress Note12/30/2018Patient is non verbal,unable to provide any historyPt is afebrileWBC down trending to 15K from 26 K( steriod was discontinued yesterday)Awaiting EGDCXr with RLL infil trate or atelectasisObjective:Vitals:Patient Vitals for the past 24 hrs: BP Temp Puls e Resp SpO2 Ulweyt56/17/19 0719 100/65 98.2 F (36.8 C) 70 [...] Supporting Document(s ) ID Date Data Source [id number] 12/30/2018 10:40:16 AM EDT [facility] Progress NoteNAME: Evelio JohnsoninDOB: 1950MRN: [id number]:nonverbalObjective:WBC down; tolerating GT feeds but cleared for [...] hernia K44.9 COPD (chronic obstructive pulmonary disease) ([facility]) J44 .9 Acute respiratory distress R06.03 Pneumonia J18.9 COPD exacerbation ([facility]) J44.1 Sepsis due to undetermined organism ([facility]) A41.9Assessment:Active Problems: Pneumonia (11/08/2018) Sepsis due to undetermined organism ([facility]) (12/12/2018)@ Plan: Discussed procedure with daughter and son-nicole prieto who is MD, they have agreed to procedure with anesthesia in the amSigned By: Darryl Harrison MD 12/30/2018 10:38 AM Name Value Range Interpretation Code Description Data Harriett rce(s) Supporting Document(s ) ID Date Data Source [id number] 12/30/2018 08:49:52 AM EDT [facility] Progress NotePatient: Evelio Carlin Sex: male DOA: 12/12/2018Date of : 1950 Age: 68 y.o. :[id number]:Reyes Carlin is 68 y.o. male. who presented [...] EVELIO CARLIN THIS IS AFINAL REPORT FROM [facility] RESIDENTIAL SALES REPRESENTATIVE DATE OF SERVICE: 2018-12-18 01:22:40 IMAGES:555 EXAM: [...] 12/18/2018 04:49 GINA Verde Please call Imaging Canal Structure Operator [phone] with questions. This report was electronically signed by: Tala MENDEZ 12/18/2018 04: 50 [facility] Chest Wo ContResult Date: 12/13/2018History: Respiratory difficulty [...] coronal, and 3-Dreconstructed images obtained on an [employer] workstation are submitted. Noprior studies are available [...] placed on the t able in the ialjd-xapf-vmtm decubitus position.CT scanning was performed locat ion [...] location.Attempts were made to pass an 8 Emir[place] pigtail catheter throug h this location.However, patient [...] leukocytosis Technique: Portable chest x-ray 12/29/2018 11:01 [facility] omparison: 12/25/2018. FINDINGS: There is a right [...] pig lori l catheterD/w Dr Monae cont sea captain medications D/W the graphic editor and pt 's RN sugg est a trial of bolusTF to reduce risk of aspiration.from the continuous TFHeplock America Roweptember 2018Time: 3:30 PM Name Value Range Interpretation Code Description Data Harriett rce(s) Supporting Document(s ) ID Date Data Source [id number] 12/30/2018 08:30:30 AM EDT [facility] Progress NoteEvelio Carlin68 y.o.Adm it Date: [...] d istressNeck: SuppleLungs: Clear to auscultationHeart: S1, T2Wvdpcvz: So ft, non-tender. Bowel sounds normal. No [...] hernia K44.9 COPD (chronic obstructive pulmonary disease) ([facility]) J44.9 Acute re spiratory distress R06.03 Pneumonia J18.9 COPD exacerbation ([facility]) J44.1 Sepsis du e to undetermined organism ([facility]) A41.9PLAN: Monitor labs Monitor bun/creat Further recommendations will be based on the patient's response to recommendedtreatme nt and results of the investigation ordered.Oralia Frankel MD12/30/20189:38 AM Name Value Range Interpretation Code Description Data Harriett rce(s) Supporting Document(s ) ID Date Data Source [id number] 12/30/2018 08:28:41 AM EDT [facility] Progress NoteEmanuel Joijhsccl7 y.o.Adm it Date: 12/12/2018Subjective:Patient awakeMore alertNo distressReview [...] (NEUTRA-PHOS) packet 1 Packet 1 Packet Oral rKystian Grey MD 1 Packet at 12/29/18 213 [...] d istressNeck: SuppleLungs: Clear to auscultationHeart: S1, O8Mwyxjqi: So ft, non-tender. Bowel sounds normal. No [...] hernia K44.9 COPD (chronic obstructive pulmonary disease) ([facility]) J44.9 Acute re spiratory distress R06.03 Pneumonia J18.9 COPD exacerbation ([facility]) J44.1 Sepsis du e to undetermined organism ([facility]) A41.9PLAN: Monitor labs Monitor bun/creat Further recommendations will be based on the patient's response to recommendedtreatme nt and results of the investigation ordered.Oralia Frankel MD12/30/20189:38 AM Name Value Range Interpretation Code Description Data [facility] rce(s) Supporting Document(s ) ID Date Data Source [id number] 12/30/2018 07:38:21 AM EDT [facility] Bedside and Verbal shift change report g ankit to Wes Fonseca RN (oncomingnurse) by Terrell Negron RN(offgoing nurse) . Report given with SBAR, Kardex, Intake/Output, MAR and RecentResults. Name Value Range Interpretation Code Description Data [facility] rce(s) Supporting Document(s ) ID Date Data Source [id number] 12/30/2018 06:34:22 AM EDT [facility] Name Value Range Interpretation Description Data Sup porting Code Source(s) Document(s ) Glucose 113 MG/DL 65-110 Above high normal [facility] - Good [Mass/volume] Zoroastrianism in Blood by Hospital Automated test strip ID Date Data Source [id number] 12/30/2018 06:07:27 AM EDT [facility] Name Value Range Interpretation Description Data Sup porting Code Source(s) Document(s ) Sodium 141 136-145 [facility] - Good [Moles/volume] mmol/L [facility]oroastrianism in Serum or Hospital Plasma Potassium 3.9 3.5-5.1 [facility] - Good [Moles/volume] mmol/L [facility]oroastrianism in Serum or Hospital Plasma Chloride 99 98-107 [facility] - [facility] [Moles/volume] mmol/L [facility]oroastrianism in Serum or Hospital Plasma Carbon 38 21-32 Above high normal [facility] - Good dioxide, total mmol/L Zoroastrianism [Moles/volume] Hospital in Serum or Plasma Anion gap in 7 mmol/L 10-20 Below low normal [facility] - Go od Serum or Zoroastrianism Plasma Hospital Glucose 69 mg/dL 74-106 Below low normal [facility] - Good [Mass/volume] Zoroastrianism in Serum or Hospital Plasma Urea nitrogen 17 mg/dL 7-18 [facility] - [facility] [Mass/volume] Zoroastrianism in Serum or Hospital Plasma Creatinine 0.33 0.70-1.3 Below low normal [facility] - Good [Mass/volume] mg/dL 0 Zoroastrianism in Serum or Hospital Plasma Glomerular >60 [facility] - Good filtration Zoroastrianism rate/1.73 sq M Hospital predicted among blacks [Volume Rate/Area] in Serum or Plasma by Creatinine-bas ed formula (MDRD) Glomerular >60 [facility] - Good filtration Zoroastrianism rate/1.73 sq M Hospital predicted among non-blacks [Volume Rate/Area] in Serum or Plasma by Creatinine-bas ed formula (MDRD) Calcium 9.3 8.5-10.1 [facility] - Good [Mass/volume] mg/dL Zoroastrianism in Serum or Hospital Plasma Phosphate 3.2 2.5-4.9 [facility] - Good [Mass/volume] mg/dL Zoroastrianism in Serum or Hospital Plasma Albumin 2.0 g/dL 3.5-4.7 Below low normal [facility] - Good [Mass/volume] Zoroastrianism in Serum or Hospital Plasma by Bromocresol purple (BCP) dye binding method ID Date Data Source [id number] 12/30/2018 06:07:27 AM EDT [facility] Name Value Range Interpretation Description Data Sup porting Code Source(s) Document(s ) Magnesium 1.8 mg/dL 1.6-2.6 [facility] - [facility] [Mass/volume] Zoroastrianism in Serum or Hospital Plasma ID Date Data Source [id number] 12/30/2018 05:37:21 AM EDT [facility] Name Value Range Interpretation Description Data Sup porting Code Source(s) Document(s ) Leukocytes 15.0 4.8-10.6 Above high normal [facility] - [#/volume] in K/uL Good Blood by Zoroastrianism Automated count [facility] Erythrocytes 3.13 4.70-6.0 Below low normal [facility] - [#/volume] in M/uL 0 Good Blood by Zoroastrianism Automated count [facility] Hemoglobin 10.5 14.0-18. Below low normal [facility] - [Mass/volume] in g/dL 0 Good Blood [facility] Hematocrit 31.2 % 42.0-52. Below low normal [facility] - [Volume 0 Good Fraction] of Zoroastrianism Blood by Hospital Automated count Erythrocyte mean 99.7 FL 81.0-94. Above high normal [facility] - corpuscular 0 Good volume [Entitic Zoroastrianism volume] by Hospital Automated count Erythrocyte mean 33.5 PG 27.0-35. [facility] - corpuscular 0 Good hemoglobin Zoroastrianism [Entitic mass] [facility] by Automated count Erythrocyte mean 33.7 30.7-37. [facility] - corpuscular g/dL 3 Good hemoglobin Zoroastrianism concentration [facility] [Mass/volume] by Automated count Erythrocyte 16.9 % 11.5-14. Above high normal [facility] - distribution 0 Good width [Ratio] by Zoroastrianism Automated count [facility] Platelets 265 K/uL 130-400 [facility] - [#/volume] in Good Blood by [facility] Platelet mean 10.5 FL 9.2-11.8 [facility] - volume [Entitic Good volume] in Blood Zoroastrianism by Automated Hospital count Segmented 74 % 48.0-72. Above high normal [facility] - neutrophils/100 [address] Good [address] [facility] Lymphocytes/100 19 % 18.0-40. [facility] - leukocytes in 0 [facility] Monocytes/100 7 % 2.0-12.0 [facility] - leukocytes in [facility] Eosinophils/100 0 % 0.0-7.0 [facility] - leukocytes in [facility] Basophils/100 0 % 0.0-3.0 [facility] - leukocytes in [facility] Segmented 11.1 1.5-6.6 Above high normal [facility] - neutrophils K/UL Good [#/volume] in [facility] Lymphocytes 2.8 K/UL 1.5-3.5 [facility] - [#/volume] in [facility] Monocytes 1.0 K/UL 0.0-1.0 [facility] - [#/volume] in [facility] Eosinophils 0.0 K/UL 0.0-0.7 [facility] - [#/volume] in [facility] Basophils 0.0 K/UL 0.0-0.1 [facility] - [#/volume] in [facility] Differential [facility] - cell count [facility] Immature 1 % 0.0-2.0 [facility] - granulocytes/100 Good leukocytes in Zoroastrianism Blood by Hospital Automated count ID Date Data Source [id number] 12/30/2018 12:19:08 AM EDT [facility] Name Value Range Interpretation Description Data Sup porting Code Source(s) Document(s ) Glucose 131 MG/DL 65-110 Above high normal [facility] - [facility] [Mass/volume] Zoroastrianism in Blood by [facility] Automated test strip ID Date Data Source [id number] 12/29/2018 07:39:17 PM EDT [facility] Bedside and Verbal shift change report g iven to Terrell Negron RN (oncomingnurse) by Rama Jaimes RN(offgoing nurse). Rep ort given with SBAR, Kardex, Intake/Output, MAR and RecentResults. Name Value Range Interpretation Code Description Data Harriett rce(s) Supporting Document(s ) ID Date Data Source [id number] 12/29/2018 05:58:40 PM EDT [facility] Name Value Range Interpretation Description Data Sup porting Code Source(s) Document(s ) Glucose 120 MG/DL 65-110 Above high normal [facility] [Mass/volume] Zoroastrianism in Blood by Hospital Automated test strip ID Date Data Source [id number] 12/29/2018 03:14:50 PM EDT [facility] YUAN done. Name Value Range Interpretation Code Description Data [facility] rce(s) Supporting Document(s ) ID Date Data Source [id number] 12/29/2018 02:51:34 PM EDT [facility] [facility] reports no J tube at this time and th at Long-term facility to attempt bolusfeedings at this time. reports d ischarge tomorrow back to Only. Spokewith Only liaison who is dulce re of discharge tomorrow and pt is acceptedto return. Name Value Range Interpretation Code Description Data [facility] rce(s) Supporting Document(s ) ID Date Data Source [id number] 12/29/2018 01:18:45 PM EDT [facility] Progress NoteMID-[facility] ,[facility].Krystian Monae MD., F.C.C.P.Stella Hamilton MD., F.C.C.P. [address] [place] [id number] [place] [phone]: Evelio Carlin Sex: male DOA: 12/12/2018Da te of : 1950 Age: 68 y.o. LOS: LOS: 17 daysSubjective:Mr. Maximiliano mata is a 68 y.o. year old male who is being seen for pneumonia .Chest xary M inimal Change In r l l , discoid Atelectasis r l l wbc = 06659 Due To SolumedrolObjective:Vital Signs:Patient Vitals for the past 24 hrs: BP Temp Puls e Resp SpO2 Gaabzz81/16/19 1114 119/56 97.2 F (36.2 C) 77 [...] AM GLUC POC 189 (H) 12/29/2018 12:36 [email or web address] icro Results Procedure Component Value Units Date/Time CULTURE, BLOOD [[id number]] Col lected: 12/29/18 1123 Order Status: Completed Specimen: Blood Updated: 1201 CULTURE, BLOOD [[id number]] Collected: 12/29/18 1100 Order Status: Completed Specimen: Blood Updated: 12/29/18 1201 CULTURE, URINE [[id number]] Collected: 12/29/18 1100 Order Status: Completed Specimen: Cath Urine Updated: 12/29/18 1116 CULTURE, BLOOD [[id number]] Collected: 12/23/18 1200 Order Status: Completed Specimen: Blood Updated: 12/28/18 0702 Special Requests: NO SPEC IAL REQUESTS Culture result: NO GROWTH 5 DAYS CULTURE, BLOOD [[id number]] Collecte d: 12/23/18 1140 Order Status: Completed Specimen: Blood Updated: 12/28/18 0702 Special Requests: NO SPECIAL REQUESTS Culture result: NO GROWTH 5 DAYS CULTURE , URINE [[id number]] Collected: 12/24/18 0945 Order Status: Completed Specimen: Cath Urine Updated: 12/26/18 1146 Special Requests: NO SPECIAL REQUESTS Culture r esult: NO GROWTH 2 DAYS CULTURE, ANAEROBIC [[id number]] Collected: 12/19/18 1230 Or bassem Status: Completed Specimen: Thoracentesis Updated: 12/24/18 1421 S pecial Requests: NO SPECIAL REQUESTS Culture result: NO GROWTH 4 DAYS CULTURE, BODY F LUID W GRAM STAIN [[id number]] Collected: 12/19/18 1230 Order Status: Completed S pecimen: Left Updated: 12/23/18 1317 Special Requests: NO SPECIAL REQUESTS G ESCOBAR STAIN FEW WBC'S NO ORGANISMS SEEN Culture result: NO GROWTH 4 DAYS CULTURE , BLOOD [[id number]] Collected: 12/12/181939 Order Status: Completed Specimen: Bloo d Updated: 12/17/18642 Special Requests: NO SPECIAL REQUESTS Culture result: NO GROWTH 5 DAYS CULTURE, BLOOD [[id number]] Collected: 12/12/181939 Order Status: Completed Specimen: Blood Updated: 12/17/18642 Special Requests: NO SPEC IAL REQUESTS Culture result: NO GROWTH 5 DAYS CULTURE, URINE [[id number]] Collecte d: 12/12/182003 Order Status: Completed Specimen: Urine Updated: 12/14/18913 Special Requests: NO SPECIAL REQUESTS Culture result: NO GROWTH 1 DAY CULTURE, URINE [[id number]] Collected: 12/12/181929 Order Status: Canceled Specimen: Cath [...] EVELIO CARLIN THIS IS AFINAL REPORT FROM [facility] ROBERT RESIDENTIAL SALES REPRESENTATIVE DATE OF SERVICE: 2018-12-18 01:22:40 IMAGES:555 EXAM: [...] 12/18/2018 04:49 GINA Verde Please call Imaging Canal Structure Operator [phone] with questions. This report was electronically signed [...] coronal, and 3-Dreconstructed images obtained on an [employer] workstation are submitted. Noprior studies are available [...] placed on the t able in the pbhar-rtki-kzqx decubitus position.CT scanning was performed locat ion [...] location.Attempts were made to pass an 8 Emir[place] pigtail catheter throug h this location.However, patient [...] leukocytosis Technique: Portable chest x-ray 12/29/2018 11:01 [facility] omparison: 12/25/2018. FINDINGS: There is a right [...] Supporting Document(s ) ID Date Data Source [id number] 12/29/2018 12:04:11 PM EDT [facility] Name Value Range Interpretation Description Data Sup porting Code Source(s) Document(s ) Glucose 153 MG/DL 65-110 Above high normal [facility] [Mass/volume] Zoroastrianism in Blood by Hospital Automated test strip ID Date Data Source [id number] 12/29/2018 11:46:22 AM EDT [facility] Cardiology Progress Note12/29/2018 11:37 AMAdmit Date: [...] in jection 20 mg 20 mg IntraVENous F24RTacmStella Angelo MD 20 mg at 12/29/18 09 [...] CARLIN THIS IS AFINAL REPORT FROM IMAGING RESIDENTIAL SALES REPRESENTATIVE DATE OF SERVICE: 2018-12 01:22:40 IMAGES:555 EXAM: [...] 12/18/2018 04:49 GINA Verde Please call Imaging Canal Structure Operator [phone] with questions. This report was electronically signed by: Tala MENDEZ 12/18/2018 04: 50 [facility] Chest Wo ContResult Date: 12/13/2018History: Respiratory difficulty [...] coronal, and 3-Dreconstructed images obtained on an [employer] workstation are submitted. Noprior studies are available [...] placed on the t able in the tzraa-zqna-kghr decubitus position.CT scanning was performed locat ion [...] location.Attempts were made to pass an 8 Emirati pigtail catheter throug h this location.However, patient [...] leukocytosis Technique: Portable chest x-ray 12/29/2018 11:01 [facility] omparison: 12/25/2018. FINDINGS: There is a right [...] QTC Calculation (Bezet) 509 ms Calculated P [place] 62 degrees Calculated R [place] 65 degrees Calculated T [place] 66 degrees Diagnosis Sinus rhythmIVCD, consider atypical [...] Resolved Sepsis due to und etermined organism ([facility]) ICD-10-CM: A41.9ICD-9-CM: 038.9 12/12/2018 - Presen t COPD (chronic obstructive pulmonary disease) ([facility]) ICD-10-CM: J44.9ICD-9-CM: 496 11/08/2018 - Present Acute respiratory distress ICD-10-CM: R06.03ICD-9-CM: 518. 82 11/08/2018 - Present Pneumonia ICD-10-CM: J18.9ICD-9-CM: 486 11/08/2018 - Present COPD exacerbation ([facility]) ICD-10-CM: J44.1ICD-9-CM: 491.21 11/08/2018 - Prese nt Paraesophageal hiatal hernia ICD-10-CM: K44.9ICD-9-CM: 553.3 09/26/2015 - Presen tSEPSISPNEUMONIACOPDPLEURAL EFFUSIONFLUID OVERLOADHYPERPARATHYROIDMENTALLY CHALLEN GEDSEIZURE DISORDERPlan:Lasix prnF/u EKG pendingPulmonary/IDSeymoKirill Jaime tember 2018 Name Value Range Interpretation Code Description Data Harriett rce(s) Supporting Document(s ) ID Date Data Source [id number] 12/29/2018 11:21:51 AM EDT [facility] History: leukocytosisTechnique: Portable chest x-ray 12/29/2018 [...] Supporting Document(s ) ID Date Data Source [id number] 01/03/2019 06:30:46 AM T [facility] Name Value Range Interpretation Description Data Sup porting Code Source(s) Document(s ) Service comment [facility] Bacteria [facility] identified in Zoroastrianism Unspecified Hospital specimen by Culture ID Date Data Source [id number] 12/29/2018 11:14:36 AM EDT [facility] -Once J-tube placed and ready to [...] Supporting Document(s ) ID Date Data Source [id number] 12/29/2018 11:13:14 AM EDT [facility] RECOMMENDATION:-Once J-tube placed and r rickey [...] stools resolved since 12/25. 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 BOARD OPERATOR O on ENNo data found.Weight: 52.8 kg [...] Supporting Document(s ) ID Date Data Source [id number] 01/03/2019 06:30:44 AM EDT [facility] Name Value Range Interpretation Description Data Sup porting Code Source(s) Document(s ) Service comment [facility] Bacteria [facility] - Good identified in Zoroastrianism Unspecified Hospital specimen by Culture ID Date Data Source [id number] 12/31/2018 12:46:44 PM EDT [facility] Name Value Range Interpretation Code Description Data Harriett rce(s) Supporting Document(s ) Service [facility] - [facility] 10,000 to 50,000COLONIES/mLKLEBSIELLA NUQWSYIMWE93,000-100,000COLONIES/mLPSEUDOMONAS GSTYFXOSMW52,000 to 50,000COLONIES/mLSTA PHYLOCOCCUS EPIDERMIDIS ID Date Data Source [id number] 12/31/2018 12:46:44 PM EDT [facility] Name Value Range Interpretation Description Data Sup porting Code Source(s) Document(s ) Ampicillin Results entered -- [facility] - [Susceptibility] not verified Good by Minimum Zoroastrianism inhibitory Hospital concentration (ANTONIO) Piperacillin+Tazo Susceptible. [facility] - bactam Indicates for Good [Susceptibility] microbiology Zoroastrianism by Minimum susceptibilities Hospital inhibitory only. concentration (ANTONIO) Cefazolin Susceptible. [facility] - [Susceptibility] Indicates for Good by Minimum microbiology Zoroastrianism inhibitory susceptibilities Hospital concentration only. (ANTONIO) Ceftazidime Susceptible. [facility] - [Susceptibility] Indicates for Good by Minimum microbiology Zoroastrianism inhibitory susceptibilities Hospital concentration only. ([facility]ONIO) Ciprofloxacin Susceptible. [facility] - [Susceptibility] Indicates for Good by Minimum microbiology Zoroastrianism inhibitory susceptibilities Hospital concentration only. ([facility]IO) Levofloxacin Susceptible. [facility] - [Susceptibility] Indicates for Good by Minimum microbiology Zoroastrianism inhibitory susceptibilities Hospital concentration only. ([facility]IO) Gentamicin Susceptible. [facility] - [Susceptibility] Indicates for Good by Minimum microbiology Zoroastrianism inhibitory susceptibilities Hospital concentration only. ([facility]IO) Tobramycin Susceptible. [facility] - [Susceptibility] Indicates for Good by Minimum microbiology Zoroastrianism inhibitory susceptibilities Hospital concentration only. (ANTONIO) Nitrofurantoin 64 ug/mL Specimen in lab; [facility] - [Susceptibility] results pending Good by Minimum Zoroastrianism inhibitory Hospital concentration ([facility]) Trimethoprim+Sulf Susceptible. [facility] - amethoxazole Indicates for Good [Susceptibility] microbiology Zoroastrianism by Minimum susceptibilities Hospital inhibitory only. concentration (ANTONIO) Beta Susceptible. [facility] - lactamase.extende Indicates for Good d spectrum microbiology Zoroastrianism [Susceptibility] susceptibilities Hospit al only. Ampicillin+Sulbac 8 ug/mL Susceptible. [facility] - millan Indicates for Good [Susceptibility] microbiology Zoroastrianism by Minimum susceptibilities Hospital inhibitory only. concentration (ANTONIO) ID Date Data Source [id number] 12/31/2018 12:46:44 PM EDT [facility] Name Value Range Interpretation Code Description Data Supporting Source(s) Document(s ) Ceftazidime 16 ug/mL Specimen in lab; [facility] - [Susceptibility] results pending Good by Minimum Zoroastrianism inhibitory Hospital concentration ([facility]IO) Ciprofloxacin 1 ug/mL Susceptible. [facility] - [Susceptibility] Indicates for Good by Minimum microbiology Zoroastrianism inhibitory susceptibilities Hospital concentration only. (ANTONIO) Gentamicin Susceptible. [facility] - [Susceptibility] Indicates for Good by Minimum microbiology Zoroastrianism inhibitory susceptibilities Hospital concentration only. (ANTONIO) Tobramycin Susceptible. [facility] - [Susceptibility] Indicates for Good by Minimum microbiology Zoroastrianism inhibitory susceptibilities Hospital concentration only. (ANTONIO) Cefepime 8 ug/mL Specimen in lab; [facility] - [Susceptibility] results pending Good by Minimum Zoroastrianism inhibitory Hospital concentration (ANTONIO) ID Date Data Source [id number] 12/31/2018 12:46:44 PM EDT [facility] Name Value Range Interpretation Description Data Sup porting Code Source(s) Document(s ) Gentamicin Susceptible. [facility] - [Susceptibility] Indicates for Good by Minimum microbiology Zoroastrianism inhibitory susceptibilities Hospital concentration only. (ANTONIO) Nitrofurantoin Susceptible. [facility] - [Susceptibility] Indicates for Good by Minimum microbiology Zoroastrianism inhibitory susceptibilities Hospital concentration only. (ANTONIO) Oxacillin Results entered -- [facility] - [Susceptibility] not verified Good by Minimum Zoroastrianism inhibitory Hospital concentration ([facility]) Penicillin G Results entered -- [facility] - [Susceptibility] not verified Good by Minimum Zoroastrianism inhibitory Hospital concentration (ANTONIO) Vancomycin 1 ug/mL Susceptible. [facility] - [Susceptibility] Indicates for Good by Minimum microbiology Zoroastrianism inhibitory susceptibilities Hospital concentration only. (ANTONIO) ID Date Data Source [id number] 12/29/2018 11:25:00 AM EDT [facility] Name Value Range Interpretation Description Data Sup porting Code Source(s) Document(s ) Color of Urine YEL [facility] Appearance of CLEAR [facility] - Urine [facility] Specific gravity 1.005 1.003-1. [facility] - of Urine by 030 Good Refractometry [facility] pH of Urine by 8.0 4.6-8.0 [facility] - Test strip [facility] Protein NEG [facility] - [Mass/volume] in Good Urine by Test [facility] Glucose NEG [facility] - [Mass/volume] in Good Urine by Zoroastrianism Automated test [facility] strip Ketones NEG [facility] - [Presence] in Good Urine by Zoroastrianism Automated test [facility] strip Bilirubin.total NEG [facility] - [Presence] in Good Urine [facility] Hemoglobin NEG [facility] - [Presence] in Good Urine by [facility] Urobilinogen 1.0 0.2-1.0 [facility] - [Presence] in EU/dL Good Urine by Zoroastrianism Automated test Hospital strip Nitrite NEG [facility] - [Presence] in Good Urine by Zoroastrianism Automated test Hospital strip Leukocyte NEG [facility] - esterase Good [Presence] in Zoroastrianism Urine by Hospital Automated test strip ID Date Data Source [id number] 12/29/2018 10:15:27 AM EDT [facility] ID Progress Note12/29/2018Patient is non verbal,unable to provide any historyHad one episode of fever to 100.5WBC up to 26KNo mikel to have ulcers on lips.ComfortableObjective:Vitals:Patient Vitals for the past 24 hrs: BP Temp Pulse Resp SpO2 Kyzstl45/16/19 0742 - - - - 91 % [...] 5-10 mL IntraVENous PRNLabs:Recent Labs 12/28/1902 0 [id number] 26.5* 9.2 8.5 13.7*HGB 11.4* 11.4* 11.7* [...] Supporting Document(s ) ID Date Data Source [id number] 12/29/2018 09:37:20 AM EDT [facility] Progress NotePatient: Evelio Carlin SSN: [id number] of : 1950 Age: 68 y.o. Sex: [...] Supporting Document(s ) ID Date Data Source [id number] 12/29/2018 09:11:51 AM EDT [facility] Progress NoteEvelio Carlin68 y.o.Adm it Date: [...] injection 20 mg 20 m g IntraVENous Q72VTkgtStella fallon MD 20 mg at 12/28/18 213 [...] MG-0.5 MG/3 ML 3 mL Nebulization Q4H PA Mili Murphy DO 3 mL at 12/16/18 [...] distressNeck: SuppleLungs: C lear to auscultationHeart: S1, I2Huaoxho: Soft, non-tender. Bowel sounds normal. N o [...] hernia K44.9 COPD (chronic obstructive pulmonary disease) ([facility]) J44.9 Acute respiratory distress R06.03 Pneumonia J 18.9 COPD exacerbation ([facility]) J44.1 Sepsis due to undetermined organism ([facility]) A41.9 PLAN: Monitor labs Monitor bun/creat Further recommendations will be based on the patient's response to recommendedtreatment and results of the investigation ordered.Oralia Frankel MD12/29/20189:38 AM Name Value Range Interpretation Code Description Data Harriett rce(s) Supporting Document(s ) ID Date Data Source [id number] 12/29/2018 07:18:01 AM EDT [facility]od [facility] Name Value Range Interpretation Description Data Sup porting Code Source(s) Document(s ) Glucose 133 MG/DL 65-110 Above high normal [facility] - Good [Mass/volume] Zoroastrianism in Blood by [facility] Automated test strip ID Date Data Source [id number] 12/29/2018 07:53:57 AM EDT [facility] - Good [facility] Name Value Range Interpretation Description Data Sup porting Code Source(s) Document(s ) Leukocytes 26.5 4.8-10.6 Above high normal [facility] - [#/volume] in K/uL Good Blood by Zoroastrianism Automated count [facility] Erythrocytes 3.37 4.70-6.0 Below low normal [facility] - [#/volume] in M/uL 0 Good Blood by Zoroastrianism Automated count [facility] Hemoglobin 11.4 14.0-18. Below low normal [facility] - [Mass/volume] in g/dL 0 Good Blood [facility] Hematocrit 33.4 % 42.0-52. Below low normal [facility] - [Volume 0 Good Fraction] of Zoroastrianism Blood by Hospital Automated count Erythrocyte mean 99.1 FL 81.0-94. Above high normal [facility] - corpuscular 0 Good volume [Entitic Zoroastrianism volume] by Hospital Automated count Erythrocyte mean 33.8 PG 27.0-35. [facility] - corpuscular 0 Good hemoglobin Zoroastrianism [Entitic mass] [facility] by Automated count Erythrocyte mean 34.1 30.7-37. [facility] - corpuscular g/dL 3 Good hemoglobin Zoroastrianism concentration [facility] [Mass/volume] by Automated count Erythrocyte 16.8 % 11.5-14. Above high normal [facility] - distribution 0 Good width [Ratio] by Zoroastrianism Automated count [facility] Platelets 207 K/uL 130-400 [facility] - [#/volume] in Good Blood by Zoroastrianism Automated count Hospital Platelet mean 11.2 FL 9.2-11.8 [facility] - volume [Entitic Good volume] in Blood Zoroastrianism by Automated Hospital count Segmented 90 % 48.0-72. Above high normal [facility] - neutrophils/100 [address] [facility] Lymphocytes/100 5 % 18.0-40. Below low normal [facility] - leukocytes in 0 [facility] Monocytes/100 5 % 2.0-12.0 [facility] - leukocytes in [facility] Blood [facility] Eosinophils/100 0 % 0.0-7.0 [facility] - leukocytes in [facility] Basophils/100 0 % 0.0-3.0 [facility] - leukocytes in [facility] 1+MACROCYTOSIS1+HYPOCHROMIA Platelet adequacy [facility] - Good [Presence] in Blood by [facility] Light microscopy Differential cell count [facility] Segmented neutrophils 23.8 K/UL 1.5-6.6 Above high normal [facility] - Good [#/volume] in [facility] Lymphocytes [#/volume] 1.4 K/UL 1.5-3.5 Below low normal [facility] - Good in [facility] Monocytes [#/volume] in 1.2 K/UL 0.0-1.0 Above high normal [facility] - Good [facility] Eosinophils [#/volume] 0.0 K/UL 0.0-0.7 [facility] - Good in [facility] Basophils [#/volume] in 0.0 K/UL 0.0-0.1 [facility] - Good [facility] ID Date Data Source [id number] 12/29/2018 05:37:43 AM EDT [facility] - Good [facility] Name Value Range Interpretation Description Data Sup porting Code Source(s) Document(s ) Sodium 133 136-145 Below low normal [facility] - Good [Moles/volume] mmol/L Zoroastrianism in Serum or Hospital Plasma Potassium 4.1 3.5-5.1 [facility] - Good [Moles/volume] mmol/L Zoroastrianism in Serum or Hospital Plasma Chloride 95 98-107 Below low normal [facility] - Good [Moles/volume] mmol/L Zoroastrianism in Serum or Hospital Plasma Carbon 35 21-32 Above high normal [facility] - Good dioxide, total mmol/L Zoroastrianism [Moles/volume] Hospital in Serum or Plasma Anion gap in 7 mmol/L 10-20 Below low normal [facility] - Go od Serum or Zoroastrianism Plasma Hospital Glucose 146 74-106 Above high normal [facility] - Good [Mass/volume] mg/dL Zoroastrianism in Serum or Hospital Plasma Urea nitrogen 13 mg/dL 7-18 [facility] - Good [Mass/volume] Zoroastrianism in Serum or Hospital Plasma Creatinine 0.46 0.70-1.3 Below low normal [facility] - Good [Mass/volume] mg/dL 0 Zoroastrianism in Serum or Hospital Plasma Glomerular >60 [facility] - Good filtration Zoroastrianism rate/1.73 sq M Hospital predicted among blacks [Volume Rate/Area] in Serum or Plasma by Creatinine-bas ed formula (MDRD) Glomerular >60 [facility] - Good filtration Zoroastrianism rate/1.73 sq M Hospital predicted among non-blacks [Volume Rate/Area] in Serum or Plasma by Creatinine-bas ed formula (MDRD) Calcium 9.9 8.5-10.1 [facility] - Good [Mass/volume] mg/dL Zoroastrianism in Serum or Hospital Plasma Phosphate 2.4 2.5-4.9 Below low normal [facility] - Good [Mass/volume] mg/dL Zoroastrianism in Serum or Hospital Plasma Albumin 2.3 g/dL 3.5-4.7 Below low normal [facility] - Good [Mass/volume] Zoroastrianism in Serum or Hospital Plasma by Bromocresol purple (BCP) dye binding method ID Date Data Source [id number] 12/29/2018 05:37:43 AM EDT [facility] Name Value Range Interpretation Description Data Sup porting Code Source(s) Document(s ) Magnesium 1.7 mg/dL 1.6-2.6 [facility] - Good [Mass/volume] Zoroastrianism in Serum or Hospital Plasma ID Date Data Source [id number] 12/29/2018 02:18:45 AM EDT [facility] Problem: Pneumonia: Day 1Goal: Off Pathw ay (Use only if patient is Off Pathway)Outcome: Progressing Towards Goa lProblem: Pneumonia: Day 1Goal: RespiratoryOutcome: Progressing Towards Goal Name Value Range Interpretation Code Description Data Harriett rce(s) Supporting Document(s ) ID Date Data Source [id number] 12/29/2018 12:48:18 AM EDT [facility] - [facility] Name Value Range Interpretation Description Data Sup porting Code Source(s) Document(s ) Glucose 189 MG/DL 65-110 Above high normal [facility] [Mass/volume] Zoroastrianism in Blood by Hospital Automated test strip ID Date Data Source [id number] 12/28/2018 08:56:51 PM EDT [facility] Progress NotePatient: Evelio Carlin Sex: male DOA: 12/12/2018Date of : 1950 Age: 68 y.o. :[id number]:Reyes Carlin is 68 y.o. male who presented [...] 72 hours.CULTURE, BODY FLUID W GRAM STAIN [[id number]] (Order [id number])MicrobiologyDate: 12/19/2018 Department: [address] Released By: Una Johnson RN(auto-released) Authorizing: [place] DOSpecimen Information: Left Component Value Flag Ref Range Units StatusSpecial Requests: FinalNO SPE CIAL REQUESTSGRAM STAIN FEW WBC'S FinalGRAM STAIN NO ORGANISMS SEEN F inalCulture result: NO GROWTH 4 DAYS FinalCULTURE, BLOOD [[id number]] (Order [id number])MicrobiologyDate: 12/23/2018 Department: [address] Released By/ Authorizing: Monica Gomez MD [...] CARLIN THIS IS AFINAL REPORT FROM IMAGING RESIDENTIAL SALES REPRESENTATIVE DATE OF SERVICE: 2018-12-18 01:22:40 IMAGES:555 EXAM: [...] 12/18/2018 04:49 GINA Verde Please call Imaging Canal Structure Operator [phone] with questions. This report was electronically signed [...] coronal, and 3-Dreconstructed images obtained on an [employer] workstation are submitted. Noprior studies are available [...] placed on the t able in the fmwrj-iwsf-uodr decubitus position.CT scanning was performed locat ion [...] location.Attempts were made to pass an 8 Emir[place] pigtail catheter throug h this location.However, patient [...] pig tail catheterCar josé luis f/u cont sea captain medications D/W the graphic editor and pt 's RN suggest a tri al of bolusTF to reduce risk of aspiration.from the continuous TF - -S sarah [place], DOSept2018Time: 8:35 PM Name Value Range Interpretation Code Description Data Harriett rce(s) Supporting Document(s ) ID Date Data Source [id number] 12/28/2018 08:39:27 PM EDT [facility] Progress NotePatient: Evelio Carlin Sex: male DOA: 12/12/2018Date of : 1950 Age: 68 y.o. :[id number]:Reyes Carlin is 68 y.o. male who presented [...] -- 3.0ALB 2.1* 2.1* -- 1.9*Recent Labs 09/12/285330CW 7.47*PCO2 51*PO2 67*HCO3 37*Xr Chest Sngl VResult [...] EVELIO CARLIN THIS IS AFINAL REPORT FROM [facility] [facility] RESIDENTIAL SALES REPRESENTATIVE DATE OF SERVICE: 2018-12-18 01:22:40 IMAGES:555 EXAM: [...] 12/18/2018 04:49 GINA Verde Please call Imaging Canal Structure Operator [phone] with questions. This report was electronically signed by: Tala MENDEZ 12/18/2018 04: 50 [facility] [place] Chest Wo ContResult Date: 12/13/2018History: Respiratory difficulty [...] coronal, and 3-Dreconstructed images obtained on an [employer] workstation are submitted. Noprior studies are available [...] placed on the t able in the kxfxm-uxci-kdve decubitus position.CT scanning was performed locat ion [...] location.Attempts were made to pass an 8 Emir[place] pigtail catheter throug h this location.However, patient [...] Left pig tail ca theterCardio f/u cont sea captain medications D/W the graphic editor and pt 's RN suggest a tr ial of bolusTF to reduce risk of aspiration.from the continuous TFSsarah [place] Hillspt2018Time: 4:46 PM Name Value Range Interpretation Code Description Data [facility] rce(s) Supporting Document(s ) ID Date Data Source [id number] 12/28/2018 07:44:55 PM EDT [facility] Bedside and Verbal shift change report carol pham to Ranjit RN (oncoming nurse) Niyah Israel RN(offgoing nurse). Report given with SBAR, Kardex, Intake/Output, MAR and RecentResults. Name Value Range Interpretation Code Description Data [facility] Supporting Document(s ) ID Date Data Source [id number] 12/28/2018 06:05:16 PM EDT [facility] Name Value Range Interpretation Description Data Sup porting Code Source(s) Document(s ) Glucose 103 MG/DL 65-110 [facility] [Mass/volume] [facility]rianism in Blood by Hospital Automated test strip ID Date Data Source [id number] 12/28/2018 05:41:52 PM EDT [facility] Progress NoteMID[facility] ,[facility].Krystian Monae MD., F.C.C.P.Stella Hamilton MD., F.C.C.P. [address] [place] [id number] [place] [address] [phone]: Evelio Carlin Sex: male DOA: 12/12/2018Da te of : 1950 Age: 68 y.o. LOS: LOS: 16 daysSubjective:Mr. Maximiliano mata is a 68 y.o. year old male who is being seen forLEFT PLEURAL CATH IS DIS CONTINUED \\PATIENT IS COMFORTABLE ..Objective:Vital Signs:Patient Vitals f or the past 24 hrs: BP Temp Pulse Resp SpO2 Nhlqav75/15/19 1526 93/51 97.5 F (36.4 C) - [...] Component Value Units Date/Patria e CULTURE, BLOOD [[id number]] Collected: 12/23/18 1200 Order Status: Completed S pecimen: Blood Updated: 12/28/18 0702 Special Requests: NO SPECIAL REQUESTS C ulture result: NO GROWTH 5 DAYS CULTURE, BLOOD [[id number]] Collected: 12/23/18 1 140 Order Status: Completed Specimen: Blood Updated: 12/28/18 0702 Special Request s: NO SPECIAL REQUESTS Culture result: NO GROWTH 5 DAYS CULTURE, URINE [[id number]] Collected: 12/24/18 0945 Order Status: Completed Specimen: Cath Urine Updated: 12/26/18 1146 Special Requests: NO SPECIAL REQUESTS Culture result: NO GROWTH 2 DA YS CULTURE, ANAEROBIC [[id number]] Collected: 12/19/18 1230 Order Status: Completed S pecimen: Thoracentesis Updated: 12/24/18 1421 Special Requests: NO SPECIAL REQUE STS Culture result: NO GROWTH 4 DAYS CULTURE, BODY FLUID W GRAM STAIN [[id number]] Collected: 12/19/18 1230 Order Status: Completed Specimen: Left Updated: 12/14 1317 Special Requests: NO SPECIAL REQUESTS GRAM STAIN FEW WBC'S NO ORGA NISMS SEEN Culture result: NO GROWTH 4 DAYS CULTURE, BLOOD [[id number]] Collected: 0 12/12/181939 Order Status: Completed Specimen: Blood Updated: 12/17/18642 Special Requests: NO SPECIAL REQUESTS Culture result: NO GROWTH 5 DAYS CULTURE , BLOOD [[id number]] Collected: 12/12/181939 Order Status: Completed Specimen: Bloo d Updated: 12/17/18642 Special Requests: NO SPECIAL REQUESTS Culture result: NO GROWTH 5 DAYS CULTURE, URINE [[id number]] Collected: 12/12/182003 Order Status: Completed Specimen: Urine Updated: 12/14/18913 Special Requests: NO SPEC IAL REQUESTS Culture result: NO GROWTH 1 DAY CULTURE, URINE [[id number]] Collected: 0 12/12/181929 Order Status: Canceled Specimen: [...] THIS IS AFINAL REPORT FROM KATJADevang BERGER RESIDENTIAL SALES REPRESENTATIVE DATE OF SERVICE: 2018-12-18 01:22:40 IMAGES:555 EXAM: [...] reconstructivetechnique. THIS DOCUMENT H BEEN ELECTRONICALLY SIGNED Karman Gillette MD 12/18/2018 04:49 GINA Verde Please call Imaging Canal Structure Operator [phone] with questions. This report was electronically signed by: Tala MENDEZ 12/18/2018 04: 50 [facility] Chest Wo ContResult Date: 12/13/2018History: Respiratory difficulty [...] coronal, and 3-Dreconstructed images obtained on an [employer] workstation are submitted. Noprior studies are available [...] placed on the t able in the ycxqw-jjbk-dxzu decubitus position.CT scanning was performed locat ion [...] location.Attempts were made to pass an 8 Emirati pigtail catheter throug h this location.However, patient [...] NIGHT NASAL CANNULA DAY TIME D/ C PA EDNISONE RESTART SOLUMEDROL 40 MG Q 8 H I V ZOSYN IF HE DETERIORATES MAY NEED INTUBATION PROGNOSIS IS GUARDED DISCONTINUE LEFT PLEURAL CATH BYRADIO LOGIST IN CAT SCAN TODAY Krystian Monae MD F.C.C.P.December 28, 20185:38 PM Name Value Range Interpretation Code Description Data [facility] rce(s) Supporting Document(s ) ID Date Data Source [id number] 12/28/2018 02:27:57 PM EDT [facility] ID Progress Note12/28/2018Patient is non verbal,unable to provide any historyAfebrileNoted to have ulcers on l ips.ComfortableObjective:Vitals:Patient Vitals for the past 24 hrs: BP Temp Puls e Resp SpO2 Yubhja34/15/19 1319 - - - - 97 % [...] Supporting Document(s ) ID Date Data Source [id number] 12/28/2018 12:04:16 PM EDT [facility] Name Value Range Interpretation Description Data Sup porting Code Source(s) Document(s ) Glucose 86 MG/DL 65-110 [facility] [Mass/volume] Zoroastrianism in Blood by [facility] Automated test strip ID Date Data Source [id number] 12/28/2018 09:40:05 AM EDT [facility] Progress Bella Vierachbein68 y.o.Adm it Date: [...] injection 20 mg 20 m g IntraVENous N82ROmqkStella fallon MD 20 mg at 12/28/18 0909 [...] MG-0.5 MG/3 ML 3 mL Nebulization Q4H PA NNMili buchanan DO 3 mL at 12/16/18 [...] distressNeck: SuppleLungs: C lear to auscultationHeart: S1, V0Mgybpdv: Soft, non-tender. Bowel sounds normal. N o [...] hernia K44.9 COPD (chronic obstructive pulmonary disease) ([facility]) J44.9 Acute re spiratory distress R06.03 Pneumonia J18.9 COPD exacerbation ([facility]) J44.1 Sepsis du e to undetermined organism ([facility]) A41.9 PLAN: Monitor labs Monitor bun/creat Furthe r recommendations will be based on the patient's response to recommendedtreatme nt and results of the investigation ordered.James Iverson MD12/28/20189:38 AM Name Value Range Interpretation Code Description Data [facility]riett rce(s) Supporting Document(s ) ID Date Data Source [id number] 12/28/2018 08:15:20 AM EDT [facility] Bedside and Verbal shift change report carol Israel RN (oncoming nurse)by Shira Beatty RN(offgoing nurse). Report given with SBAR, Kardex, Intake/Output, MAR and RecentResults. Name Value Range Interpretation Code Description Data Harriett rce(s) Supporting Document(s ) ID Date Data Source [id number] 12/28/2018 07:40:51 AM EDT [facility] Patient much more relaxed. Bi-pap off. Patient placed on NC O2 at 6 L/min. O2sat is 98 % on 6 L/min.Will continue to nir tor. Name Value Range Interpretation Code Description Data Harriett rce(s) Supporting Document(s ) ID Date Data Source [id number] 12/28/2018 07:22:46 AM EDT [facility] Reviewed BIPAP settings, alarms and skin adhesive With next shift RT Samia. Name Value Range Interpretation Code Description Data [facility] rce(s) Supporting Document(s ) ID Date Data Source [id number] 12/28/2018 06:27:03 AM EDT [facility] Name Value Range Interpretation Description Data Sup porting Code Source(s) Document(s ) Glucose 90 MG/DL 65-110 [facility] [Mass/volume] Zoroastrianism in Blood by Hospital Automated test strip ID Date Data Source [id number] 12/28/2018 04:19:11 AM EDT [facility] Name Value Range Interpretation Description Data Sup porting Code Source(s) Document(s ) Sodium 137 136-145 [facility] [Moles/volume] mmol/L [facility]ism in Serum or Hospital Plasma Potassium 4.6 3.5-5.1 [facility] [Moles/volume] mmol/L [facility]rianism in Serum or Hospital Plasma Chloride 96 98-107 Below low normal [facility] [Moles/volume] mmol/L [facility]ism in Serum or Hospital Plasma Carbon 34 21-32 Above high normal [facility] dioxide, total mmol/L [facility] [Moles/volume] Hospital in Serum or Plasma Anion gap in 11 10-20 [facility] Serum or mmol/L [facility] Plasma Hospital Glucose 100 74-106 [facility] [Mass/volume] mg/dL [facility]oroastrianism in Serum or Hospital Plasma Urea nitrogen 19 mg/dL 7-18 Above high normal [facility] [Mass/volume] Zoroastrianism in Serum or Hospital Plasma Creatinine 0.45 0.70-1.3 Below low normal [facility] [Mass/volume] mg/dL 0 [facility]oroastrianism in Serum or Hospital Plasma Glomerular >60 [facility] filtration Zoroastrianism rate/1.73 sq M Hospital predicted among blacks [Volume Rate/Area] in Serum or Plasma by Creatinine-bas ed formula (MDRD) Glomerular >60 [facility] filtration Zoroastrianism rate/1.73 sq M Hospital predicted among non-blacks [Volume Rate/Area] in Serum or Plasma by Creatinine-bas ed formula (MDRD) Calcium 9.5 8.5-10.1 [facility] [Mass/volume] mg/dL [facility]oroastrianism in Serum or Hospital Plasma Phosphate 2.5 2.5-4.9 [facility] [Mass/volume] mg/dL [facility]astrianism in Serum or Hospital Plasma Albumin 2.2 g/dL 3.5-4.7 Below low normal [facility] [Mass/volume] Zoroastrianism in Serum or Hospital Plasma by Bromocresol purple (BCP) dye binding method ID Date Data Source [id number] 12/28/2018 04:19:11 AM EDT [facility] Name Value Range Interpretation Description Data Sup porting Code Source(s) Document(s ) Magnesium 1.9 mg/dL 1.6-2.6 [facility] [Mass/volume] Zoroastrianism in Serum or Hospital Plasma ID Date Data Source [id number] 12/28/2018 03:58:13 AM EDT [facility] Name Value Range Interpretation Description Data Sup porting Code Source(s) Document(s ) Leukocytes 9.2 K/uL 4.8-10.6 [facility] - [#/volume] in Good Blood by Zoroastrianism Automated count [facility] Erythrocytes 3.44 4.70-6.0 Below low normal [facility] - [#/volume] in M/uL 0 Good Blood by Zoroastrianism Automated count [facility] Hemoglobin 11.4 14.0-18. Below low normal [facility] - [Mass/volume] in g/dL 0 Good Blood [facility] Hospital Hematocrit 35.1 % 42.0-52. Below low normal [facility] - [Volume 0 Good Fraction] of Zoroastrianism Blood by Hospital Automated count Erythrocyte mean 102.0 FL 81.0-94. Above high normal [facility] - corpuscular 0 Good volume [Entitic Zoroastrianism volume] by Hospital Automated count Erythrocyte mean 33.1 PG 27.0-35. [facility] - corpuscular 0 Good hemoglobin Zoroastrianism [Entitic mass] Hospital by Automated count Erythrocyte mean 32.5 30.7-37. [facility] - corpuscular g/dL 3 Good hemoglobin [facility] concentration Hospital [Mass/volume] by Automated count Erythrocyte 16.6 % 11.5-14. Above high normal [facility] - distribution 0 Good width [Ratio] by Zoroastrianism Automated count Hospital Platelets 241 K/uL 130-400 [facility] - [#/volume] in [facility] Blood by Zoroastrianism Automated count Hospital Platelet mean 9.9 FL 9.2-11.8 [facility] - volume [Entitic Good volume] in [facility] by Automated Hospital count Segmented 85 % 48.0-72. Above high normal [facility] - neutrophils/100 [address] [facility] Lymphocytes/100 9 % 18.0-40. Below low normal [facility] - leukocytes in 0 [facility] Monocytes/100 6 % 2.0-12.0 [facility] - leukocytes in [facility] Eosinophils/100 0 % 0.0-7.0 [facility] - leukocytes in [facility] Basophils/100 0 % 0.0-3.0 [facility] - leukocytes in [facility] Segmented 7.8 K/UL 1.5-6.6 Above high normal [facility] - neutrophils Good [#/volume] in [facility] Lymphocytes 0.8 K/UL 1.5-3.5 Below low normal [facility] - [#/volume] in [facility] Monocytes 0.6 K/UL 0.0-1.0 [facility] - [#/volume] in [facility] Eosinophils 0.0 K/UL 0.0-0.7 [facility] - [#/volume] in [facility] Basophils 0.0 K/UL 0.0-0.1 [facility] - [#/volume] in [facility] Blood [facility] Differential [facility] - cell count Good method - Blood [facility] Immature 0 % 0.0-2.0 [facility] - granulocytes/100 Good leukocytes in Zoroastrianism Blood by [facility] Automated count ID Date Data Source [id number] 12/28/2018 01:17:01 AM EDT [facility] Patient agitated, hitting his own face a nd pulling oxygen tubing off. O2 sat isgoing down to 84 at times with O2 at 5 l/min. Patient placed on bipap andmedicated as ordered. Will monitor. Name Value Range Interpretation Code Description Data Harriett rce(s) Supporting Document(s ) ID Date Data Source [id number] 12/28/2018 12:42:17 AM EDT [facility] Name Value Range Interpretation Description Data Sup porting Code Source(s) Document(s ) Glucose 141 MG/DL 65-110 Above high normal [facility] [Mass/volume] [facility] Automated test strip ID Date Data Source [id number] 12/27/2018 07:56:55 PM EDT [facility] Verbal shift change report given to rn sabrina denton (oncoming nurse) by shawna (offgoing nurse). Report included the fo llowing information SBAR andKardex. Name Value Range Interpretation Code Description Data Harriett rce(s) Supporting Document(s ) ID Date Data Source [id number] 12/27/2018 07:45:08 PM EDT [facility] Verbal shift change report given to nancy denton (oncoming nurse) by shawna (offgoing nurse). Report included the fo llowing information SBAR andKardex. Name Value Range Interpretation Code Description Data Harriett rce(s) Supporting Document(s ) ID Date Data Source [id number] 12/27/2018 06:15:18 PM EDT [facility] Name Value Range Interpretation Description Data Sup porting Code Source(s) Document(s ) Glucose 96 MG/DL 65-110 [facility] [Mass/volume] Zoroastrianism in Blood by Hospital Automated test strip ID Date Data Source [id number] 12/27/2018 01:46:58 PM EDT [facility] ID Progress Note12/27/2018Patient is non verbal,unable to provide any historyAfebrileNoted to have ulcers on l ips.Objective:Vitals:Patient Vitals for the past 24 hrs: BP Temp [facility] - - - - 100 % [...] discontinue IV zosyn2. Valtrex via peg.Natasha Dudley [facility]43 PM Name Value Range Interpretation Code Description Data Harriett rce(s) Supporting Document(s ) ID Date Data Source [id number] 12/27/2018 01:12:59 PM EDT [facility] PULMONARY/ CCM- Consult NotePatient: Ivelisse Carlin Sex: male DOA: 12/12/2018Date of : 1 Age: 68 y.o. LOS: LOS: 15 daysHPI: kassie Carlin is a 68 y.o. male who has been seen for respfailure.pneumonia,recently discharge d..Patient with MR,aspiration pneumonia,dysphagia,s/p peg placement,CO PD,pulmonaryembolism,schizophrenia was transferred from the intermediate for fe rxw146.3,shortness of breath and tachycardia.Patient is non verbal,unable [...] (DEPAKENE) 250 mg/5 mL (5 mL) oral wlbgfnal266 mg, 750 mg, Per G Tube, BID, [...] 065 9 12/27/18 07 - 12/28/18 0659Shift 4073-1178 0397-2284 24 Hour Total 0700-1 859 5375-7736 24 Hour TotalINTAKEI.V.(mL/kg/hr) 400(0.6) 400( 0.3) Volume [...] PCO2 51*PO2 67*HCO3 37*Cultures:No results found for: Bizerra.ruESLab ResultsComponent Valu e Date/Time Culture result: NO [...] Supporting Document(s ) ID Date Data Source [id number] 12/27/2018 12:55:16 PM EDT [facility] Alert/confused no signs of acute pain or distress, telemetry recording sinusrhythm and vitals remain stable 02 sats are 100 % on 4lnc, will monitor forchanges in condition Name Value Range Interpretation Code Description Data Harriett rce(s) Supporting Document(s ) ID Date Data Source [id number] 12/27/2018 01:00:29 PM EDT [facility] Name Value Range Interpretation Description Data Sup porting Code Source(s) Document(s ) Glucose 114 MG/DL 65-110 Above high normal [facility] [Mass/volume] [facility]oroastrianism in Blood by Hospital Automated test strip ID Date Data Source [id number] 12/27/2018 12:16:48 PM EDT [facility] Progress NoteEmanuel Mmazdimjt40 y.o.Adm it Date: 12/12/2018Subjective:Patient comfortableNo distressReview of [...] injection 20 mg 20 mg Int raVENous H29XWejhStella fallon MD 20 mg at 12/27/18 1045 [...] Van Plunkett MD 25 mL/hr at 12/27/18 78810.375 g at 12/27/18 0352 budesonide (PULMICORT) 50 [...] d istressNeck: SuppleLungs: Clear to auscultationHeart: S1, A5Wcsijaj: So ft, non-tender. Bowel sounds normal. No [...] hernia K44.9 COPD (chronic obstructive pulmonary disease) ([facility]) J44 .9 Acute respiratory distress R06.03 Pneumonia J18.9 COPD exacerbation ([facility]) J44.1 Sepsis due to undetermined organism ([facility]) A41.9 PLAN: Replete phos Monito r labs Further recommendations will be based on the patient's response to recommended treatment and results of the investigation ordered.James Iverson MD12/27/201812:15 P M Name Value Range Interpretation Code Description Data [facility] Supporting Document(s ) ID Date Data Source [id number] 12/27/2018 07:41:53 AM EDT [facility] Bedside and Verbal shift change report g iven to Tatum Darby RN (oncomingnurse) by Shira Beatty RN(offgoing nurse). Report given with SBAR, Kardex, Intake/Output, MAR and RecentResults. Name Value Range Interpretation Code Description Data [facility] rce(s) Supporting Document(s ) ID Date Data Source [id number] 12/27/2018 06:25:01 AM EDT [facility] Name Value Range Interpretation Description Data Sup porting Code Source(s) Document(s ) Glucose 143 MG/DL 65-110 Above high normal [facility] [Mass/volume] [facility] in Blood by Hospital Automated test strip ID Date Data Source [id number] 12/27/2018 03:58:59 AM EDT [facility] Name Value Range Interpretation Description Data Sup porting Code Source(s) Document(s ) Sodium 136 136-145 [facility] [Moles/volume] mmol/L [facility]ism in Serum or Hospital Plasma Potassium 4.5 3.5-5.1 [facility] [Moles/volume] mmol/L [facility] in Serum or Hospital Plasma Chloride 97 98-107 Below low normal [facility] [Moles/volume] mmol/L [facility] in Serum or Hospital Plasma Carbon 36 21-32 Above high normal [facility] Good dioxide, total mmol/L [facility] [Moles/volume] Hospital in Serum or Plasma Anion gap in 7 mmol/L 10-20 Below low normal [facility] - Go od Serum or [facility] Plasma Hospital Glucose 200 74-106 Above high normal [facility] [Mass/volume] mg/dL [facility]oroastrianism in Serum or Hospital Plasma Urea nitrogen 19 mg/dL 7-18 Above high normal [facility] [Mass/volume] Zoroastrianism in Serum or Hospital Plasma Creatinine 0.53 0.70-1.3 Below low normal [facility] [Mass/volume] mg/dL 0 [facility]astrianism in Serum or Hospital Plasma Glomerular >60 [facility] filtration Zoroastrianism rate/1.73 sq M Hospital predicted among blacks [Volume Rate/Area] in Serum or Plasma by Creatinine-bas ed formula (MDRD) Glomerular >60 [facility] - Good filtration Zoroastrianism rate/1.73 sq M Hospital predicted among non-blacks [Volume Rate/Area] in Serum or Plasma by Creatinine-bas ed formula (MDRD) Calcium 9.1 8.5-10.1 [facility] [Mass/volume] mg/dL [facility]oroastrianism in Serum or Hospital Plasma Phosphate 2.3 2.5-4.9 Below low normal [facility] [Mass/volume] mg/dL [facility]rianism in Serum or Hospital Plasma Albumin 2.1 g/dL 3.5-4.7 Below low normal [facility] [Mass/volume] Zoroastrianism in Serum or Hospital Plasma by Bromocresol purple (BCP) dye binding method ID Date Data Source [id number] 12/27/2018 03:58:59 AM EDT [facility] Name Value Range Interpretation Description Data Sup porting Code Source(s) Document(s ) Magnesium 1.8 mg/dL 1.6-2.6 [facility] [Mass/volume] Zoroastrianism in Serum or Hospital Plasma ID Date Data Source [id number] 12/27/2018 03:40:15 AM EDT [facility] Name Value Range Interpretation Description Data Sup porting Code Source(s) Document(s ) Leukocytes 8.5 K/uL 4.8-10.6 [facility] - [#/volume] in Good Blood by [facility] Automated count Hospital Erythrocytes 3.60 4.70-6.0 Below low normal [facility] - [#/volume] in M/uL 0 Good Blood by Zoroastrianism Automated count [facility] Hemoglobin 11.7 14.0-18. Below low normal [facility] - [Mass/volume] in g/dL 0 [facility] Blood [facility] Hematocrit 36.6 % 42.0-52. Below low normal [facility] - [Volume 0 Good Fraction] of Zoroastrianism Blood by Hospital Automated count Erythrocyte mean 101.7 FL 81.0-94. Above high normal [facility] - corpuscular 0 Good volume [Entitic Zoroastrianism volume] by Hospital Automated count Erythrocyte mean 32.5 PG 27.0-35. [facility] - corpuscular 0 Good hemoglobin [facility]oroastrianism [Entitic mass] [facility] by Automated count Erythrocyte mean 32.0 30.7-37. [facility] - corpuscular g/dL 3 Good hemoglobin [facility] [Mass/volume] by Automated count Erythrocyte 17.3 % 11.5-14. Above high normal [facility] - distribution 0 Good width [Ratio] by Zoroastrianism Automated count Hospital Platelets 229 K/uL 130-400 [facility] - [#/volume] in Good Blood by Zoroastrianism Automated count [facility] Platelet mean 10.2 FL 9.2-11.8 [facility] - volume [Entitic Good volume] in Blood [facility] by Automated Hospital count Segmented 92 % 48.0-72. Above high normal [facility] - neutrophils/100 [address] [facility] Lymphocytes/100 6 % 18.0-40. Below low normal [facility] - leukocytes in 0 Good Blood [facility] Monocytes/100 2 % 2.0-12.0 [facility] - leukocytes in [facility] Eosinophils/100 0 % 0.0-7.0 [facility] - leukocytes in [facility] Basophils/100 0 % 0.0-3.0 [facility] - leukocytes in [facility] Segmented 7.7 K/UL 1.5-6.6 Above high normal [facility] - neutrophils Good [#/volume] in [facility] Lymphocytes 0.5 K/UL 1.5-3.5 Below low normal [facility] - [#/volume] in [facility] Monocytes 0.2 K/UL 0.0-1.0 [facility] - [#/volume] in [facility] Eosinophils 0.0 K/UL 0.0-0.7 [facility] - [#/volume] in [facility] Basophils 0.0 K/UL 0.0-0.1 [facility] - [#/volume] in [facility] Differential [facility] - cell count [facility] Immature 1 % 0.0-2.0 [facility] - granulocytes/100 [facility] leukocytes in [facility] Automated count ID Date Data Source [id number] 12/27/2018 02:09:23 AM EDT [facility] Problem: Falls - Risk ofGoal: *Absence o f FallsDescriptionDocument Samra Fall Risk and appropriate interventions in the jhon wsheet.Outcome: Progressing Towards GoalNote:Fall Risk Interventions:Mentati on Interventions: Door open when patient unattendedMedication Interventions: Eval uate medications/consider consulting pharmacyElimination Interventions: Call light in reach, Toilet paper/wipes in reach Name Value Range Interpretation Code Description Data Harriett rce(s) Supporting Document(s ) ID Date Data Source [id number] 12/27/2018 12:24:28 AM EDT [facility] Name Value Range Interpretation Description Data Sup porting Code Source(s) Document(s ) Glucose 137 MG/DL 65-110 Above high normal [facility] [Mass/volume] Zoroastrianism in Blood by Hospital Automated test strip ID Date Data Source [id number] 12/26/2018 10:22:38 PM EDT [facility] Progress NotePatient: Evelio Carlin Sex: male DOA: 12/12/2018Date of : 1950 Age: 68 y.o. :[id number]:Reyes Carlin is 68 y.o. male who presented [...] THIS IS AFINAL REPORT FROM KATJADevang BERGER RESIDENTIAL SALES REPRESENTATIVE DATE OF SERVICE: 2018-12-18 01:22:40 IMAGES:555 EXAM: [...] 12/18/2018 04:49 GINA Verde Please call Imaging Canal Structure Operator [phone] with questions. This report was electronically signed by: Tala MENDEZ 12/18/2018 04: 50 [facility] Chest Wo ContResult Date: 12/13/2018History: Respiratory difficulty [...] coronal, and 3-Dreconstructed images obtained on an [employer] workstation are submitted. Noprior studies are available [...] placed on the t able in the kclyf-kcxg-ndun decubitus position.CT scanning was performed locat ion [...] location.Attempts were made to pass an 8 Emirati pigtail catheter throug h this location.However, patient [...] pig tail catheterCar josé luis f/u cont sea captain medications D/W the graphic editor and pt 's RN suggest a tri al of bolusTF to reduce risk of aspiration.from the continuous [place] Elizondopt2018Time: 9:53 PM Name Value Range Interpretation Code Description Data [facility](s) Supporting Document(s ) ID Date Data Source [id number] 12/26/2018 08:19:27 PM EDT [facility] Bedside and Verbal shift change report g ankit to Shira RN (oncoming nurse) Cristina Blum, NANCY(offgoing nurse). Report g ivten with SBAR, Kardex, Intake/Output, MAR and RecentResults. Name Value Range Interpretation Code Description Data [facility](s) Supporting Document(s ) ID Date Data Source [id number] 12/26/2018 06:49:15 PM EDT [facility] Progress NoteMID[facility] ,[facility].Krystian Monae MD., F.C.C.P.Stella Hamilton MD., F.C.C.P. 9W 1 [facility] [address] [place] [address] [place] [address] [phone]: Evelio Carlin Sex: male DOA: 12/12/2018Da te of : 1950 Age: 68 y.o. LOS: LOS: 14 daysSubjective:Mr. Maximiliano mata is a 68 y.o. year old male who is being seen for SEPSIS ,PNEUMONIA . LEF T CHEST TUBE IS NOT DRAINING , NEED TO COME OUT .Objective:Vital Signs:Patient Vitals for the past 24 hrs: BP Temp Pulse Resp SpO2 Jgrpgv43/13/19 1545 94/78 98 F (36.7 C) 79 [...] Component Value Units Date/Patria e CULTURE, URINE [[id number]] Collected: 12/24/18 0945 Order Status: Completed S pecimen: Cath Urine Updated: 12/26/18 1146 Special Requests: NO SPECIAL REQUESTS C ulture result: NO GROWTH 2 DAYS CULTURE, BLOOD [[id number]] Collected: 12/23/18 1 140 Order Status: Completed Specimen: Blood Updated: 12/25/18616 Special Request s: NO SPECIAL REQUESTS Culture result: NO GROWTH 2 DAYS CULTURE, BLOOD [[id number]] Collected: 12/23/18 1200 Order Status: Completed Specimen: Blood Updated: 04/02 Special Requests: NO SPECIAL REQUESTS Culture result: NO GROWTH 2 DA YS CULTURE, ANAEROBIC [[id number]] Collected: 12/19/18 1230 Order Status: Completed S pecimen: Thoracentesis Updated: 12/24/18 1421 Special Requests: NO SPECIAL REQUE STS Culture result: NO GROWTH 4 DAYS CULTURE, BODY FLUID W GRAM STAIN [[id number]] Collected: 12/19/18 1230 Order Status: Completed Specimen: Left Updated: 12/14 1317 Special Requests: NO SPECIAL REQUESTS GRAM STAIN FEW WBC'S NO ORGA NISMS SEEN Culture result: NO GROWTH 4 DAYS CULTURE, BLOOD [[id number]] Collected: 0 12/12/181939 Order Status: Completed Specimen: Blood Updated: 12/17/18642 Special Requests: NO SPECIAL REQUESTS Culture result: NO GROWTH 5 DAYS CULTURE , BLOOD [[id number]] Collected: 12/12/181939 Order Status: Completed Specimen: Bloo d Updated: 12/17/18642 Special Requests: NO SPECIAL REQUESTS Culture result: NO GROWTH 5 DAYS CULTURE, URINE [[id number]] Collected: 12/12/182003 Order Status: Completed Specimen: Urine Updated: 12/14/18913 Special Requests: NO SPEC IAL REQUESTS Culture result: NO GROWTH 1 DAY CULTURE, URINE [[id number]] Collected: 0 12/12/181929 Order Status: Canceled Specimen: [...] EVELIO CARLIN THIS IS AFINAL REPORT FROM [facility] ROBERT RESIDENTIAL SALES REPRESENTATIVE DATE OF SERVICE: 2018-12-18 01:22:40 IMAGES:555 EXAM: [...] 12/18/2018 04:49 GINA Jenkins. Please call Imaging Canal Structure Operator [phone] with questions. This report was electronically signed by: Tala MENDEZ 12/18/2018 04: 50 [facility] Chest Wo ContResult Date: 12/13/2018History: Respiratory difficulty [...] coronal, and 3-Dreconstructed images obtained on an [employer] workstation are submitted. Noprior studies are available [...] placed on the t able in the thecf-ghfn-ifqc decubitus position.CT scanning was performed locat ion [...] location.Attempts were made to pass an 8 Emirati pigtail catheter throug h this location.However, patient [...] Supporting Document(s ) ID Date Data Source [id number] 12/26/2018 05:52:24 PM EDT [facility] Pt for pig tail removal in ct. Tolerated well. Dressing to l upper back d&i.Bolus feed via g tube performed as ordered Name Value Range Interpretation Code Description Data Harriett rce(s) Supporting Document(s ) ID Date Data Source [id number] 12/26/2018 05:42:45 PM EDT [facility] Name Value Range Interpretation Description Data Sup porting Code Source(s) Document(s ) Glucose 80 MG/DL 65-110 [facility] [Mass/volume] Zoroastrianism in Blood by Hospital Automated test strip ID Date Data Source [id number] 12/26/2018 04:54:57 PM EDT [facility] DUPLEX UPPER EXT VENOUS LEFTClinical Pan [...] Supporting Document(s ) ID Date Data Source [id number] 12/26/2018 04:12:09 PM EDT [facility] ID Progress Note12/26/2018Patient is non verbal,unable to provide any historyAfebrileObjective:Vitals:Patient Vitals for the past 24 hrs: BP Temp Pulse Resp SpO2 Rubbep83/13/19 1545 94/78 98 F (36.7 C) 79 [...] Supporting Document(s ) ID Date Data Source [id number] 12/26/2018 01:17:00 PM EDT [facility] Patient brought to CT for removal of Nelda st tube. Dr Murillo attends and proceduredone without incident. DSD applied and transp orted to floor. Repot to floor. Name Value Range Interpretation Code Description Data Harriett rce(s) Supporting Document(s ) ID Date Data Source [id number] 12/26/2018 12:35:00 PM EDT [facility] Name Value Range Interpretation Description Data Sup porting Code Source(s) Document(s ) Glucose 133 MG/DL 65-110 Above high normal [facility] [Mass/volume] Zoroastrianism in Blood by Hospital Automated test strip ID Date Data Source [id number] 12/26/2018 12:40:25 PM EDT [facility] Name Value Range Interpretation Description Data Sup porting Code Source(s) Document(s ) Leukocytes 13.7 4.8-10.6 Above high normal [facility] - [#/volume] in K/uL Good Blood by Zoroastrianism Automated count Hospital Erythrocytes 3.55 4.70-6.0 Below low normal [facility] - [#/volume] in M/uL 0 Good Blood by Zoroastrianism Automated count Hospital Hemoglobin 11.9 14.0-18. Below low normal [facility] - [Mass/volume] in g/dL 0 Good Blood [facility] Hematocrit 34.9 % 42.0-52. Below low normal [facility] - [Volume 0 Good Fraction] of Zoroastrianism Blood by Hospital Automated count Erythrocyte mean 98.3 FL 81.0-94. Above high normal [facility] - corpuscular 0 Good volume [Entitic Zoroastrianism volume] by Hospital Automated count Erythrocyte mean 33.5 PG 27.0-35. [facility] - corpuscular 0 Good hemoglobin Zoroastrianism [Entitic mass] Hospital by Automated count Erythrocyte mean 34.1 30.7-37. [facility] - corpuscular g/dL 3 Good hemoglobin Zoroastrianism concentration [facility] [Mass/volume] by Automated count Erythrocyte 17.1 % 11.5-14. Above high normal [facility] - distribution 0 Good width [Ratio] by Zoroastrianism Automated count Hospital Platelets 234 K/uL 130-400 [facility] - [#/volume] in Good Blood by Zoroastrianism Automated count Hospital Platelet mean 9.8 FL 9.2-11.8 [facility] - volume [Entitic Good volume] in Blood [facility] Automated Hospital count ID Date Data Source [id number] 12/26/2018 10:07:14 AM EDT [facility] 12/26/2018Patient: Evelio AbrahambeinDOB: [facility] Physician: Mili Hills DOCHIEF COMPLAINT:Chief Complai ntPatient presents with Lethargy FeverHISTORY OF PRESENT ILLNESS: The dayanara tong is a 68 y.o. year old male I am askedto see b/o fluid overload.Pt [facility] 12/12/18 with fever, lethargy treated forpneumonia & [...] (SOLU-MEDROL) injection 20 mg 20 mg IntraVENous [id number] Angelo MD 20 mg at 12/25/18 2203 [...] Van Plunkett MD 25 mL/hr at 12/26/18 43673.375 g at 12/26/18 0512 budesonide (PULMICORT) 50 [...] O2 O2 FLOW 6 L/min Performed by [id number], POC Collection Time: 12/25/18 4:22 PMResult Value [...] THIS IS AFINAL REPORT FROM KATJA BERGER RESIDENTIAL SALES REPRESENTATIVE DATE OF SERVICE: 2018-12-18 01:22:40 IMAGES:555 EXAM: [...] 12/18/2018 04:49 GINA Verde Please call Imaging Canal Structure Operator [phone] with questions. This report was electronically signed [...] coronal, and 3-Dreconstructed images obtained on an [employer] workstation are submitted. Noprior studies are available [...] placed on the t able in the fynqf-udhf-fuph decubitus position.CT scanning was performed locat ion [...] location.Attempts were made to pass an 8 Emirati pigtail catheter throug h this location.However, patient [...] QTC Calculation (Bezet) 509 ms Calculated P [place] 62 degrees Calculated R [place] 65 degrees Calculated T [place] 66 degrees Diagnosis Sinus rhythmIVCD, consider atypical RBBBArtifact limits interpretation, ST e levation noted avF but other inferiorleads not able to be evaluatedConfirmed by Joaquin Ley MD ([id number]) on 12/17/2018 11:57:07 AMEKG 12/12/18: NSR 82/min, [...] Supporting Document(s ) ID Date Data Source [id number] 12/26/2018 09:29:15 AM EDT [facility] Progress NOTENAME: Evelio FischbeinDOB : 1950MRN: [id number]/Time: 12/26/2018 9:15 AMHISTORY OF PRESENT ILLN ESS:Evelio is a 68 y.o. male who presents from [facility] with medical history ofDysphag ia with recent [...] for 30 days. 11/27/18 12/27/18 Yes Cesar iHlls, DOmultivitamin (ONE A DAY) tablet Take 1 [...] O2 O2 FLOW 6 L/min Performed by [id number], POC Collection Time: 12/25/18 4:22 PMResult Value [...] chest , bilateral Pleural effusi on8. Restart sea captain medications via peg Covering for Admitting Physician: Oralia Frankel MD December 9:15 AM Name Value Range Interpretation Code Description Data Harriett rce(s) Supporting Document(s ) ID Date Data Source [id number] 12/26/2018 09:24:27 AM EDT [facility] Pt seen, no significant changes.Remains hypoxic [...] Name Value Range Interpretation Code Description Data [facility] rce(s) Supporting Document(s ) ID Date Data Source [id number] 12/26/2018 09:08:35 AM EDT [facility] Progress NotePatient: Evelio Carlin Sex: male DOA: 12/12/2018Date of : 1950 Age: 68 y.o. :[id number]:Reyes Carlin is 68 y.o. male who presented [...] CARLIN THIS IS AFINAL REPORT FROM IMAGING RESIDENTIAL SALES REPRESENTATIVE DATE OF SERVICE: 2018-12-18 01:22:40 IMAGES:555 EXAM: [...] 12/18/2018 04:49 GINA Verde Please call Imaging Canal Structure Operator [phone] with questions. This report was electronically signed [...] coronal, and 3-Dreconstructed images obtained on an [employer] workstation are submitted. Noprior studies are available [...] placed on the t able in the rbynz-oivu-lsbs decubitus position.CT scanning was performed locat ion [...] location.Attempts were made to pass an 8 Emirati pigtail catheter throug h this location.However, patient [...] MG-0.5 MG/3 ML 3 mL Nebulization Q4H PA N potassium, sodium phosphates (NEUTRA-PHOS) packet 1 [...] iv s teroids tapering per pulmonary cont sea captain medications D/W graphic editor and RN sug gest a trial of bolusTF to reduce risk of aspiration.from the continuous TFDiscuss ed with Dr Trejo plans for conversion of PEGJ -tube once respiratory status is stable. Mili Hills, DOSept2018Time: 7:51 AM Name Value Range Interpretation Code Description Data Harriett rce(s) Supporting Document(s ) ID Date Data Source [id number] 12/26/2018 07:32:22 AM EDT [facility] Bedside and Verbal shift change report g iven to Joellen Blum RN (oncomingnurse) by Daja Castaneda RN(offgoing nurse). R eport given with SBAR, Kardex, Intake/Output, MAR and RecentResults. Name Value Range Interpretation Code Description Data [facility] rce(s) Supporting Document(s ) ID Date Data Source [id number] 12/26/2018 07:17:36 AM EDT [facility] Name Value Range Interpretation Description Data Sup porting Code Source(s) Document(s ) Glucose 152 MG/DL 65-110 Above high normal [facility] - [facility] [Mass/volume] Zoroastrianism in Blood by Hospital Automated test strip ID Date Data Source [id number] 12/26/2018 04:38:50 AM EDT [facility] Name Value Range Interpretation Description Data Sup porting Code Source(s) Document(s ) Sodium 136 136-145 [facility] - [facility] [Moles/volume] mmol/L Zoroastrianism in Serum or Hospital Plasma Potassium 4.9 3.5-5.1 [facility] - [facility] [Moles/volume] mmol/L Zoroastrianism in Serum or Hospital Plasma Chloride 99 98-107 [facility] [Moles/volume] mmol/L Zoroastrianism in Serum or Hospital Plasma Carbon 36 21-32 Above high normal [facility] - Good dioxide, total mmol/L Z[facility]astrianism [Moles/volume] Hospital in Serum or Plasma Anion gap in 6 mmol/L 10-20 Below low normal [facility] - [facility] od Serum or Zoroastrianism Plasma Hospital Glucose 96 mg/dL 74-106 [facility] - [facility] [Mass/volume] Zoroastrianism in Serum or Hospital Plasma Urea nitrogen 15 mg/dL 7-18 [facility] - [facility] [Mass/volume] Zoroastrianism in Serum or Hospital Plasma Creatinine 0.39 0.70-1.3 Below low normal [facility] [Mass/volume] mg/dL 0 Zoroastrianism in Serum or Hospital Plasma Glomerular >60 [facility] - Good filtration Zoroastrianism rate/1.73 sq M Hospital predicted among blacks [Volume Rate/Area] in Serum or Plasma by Creatinine-bas ed formula (MDRD) Glomerular >60 [facility] - Good filtration Zoroastrianism rate/1.73 sq M Hospital predicted among non-blacks [Volume Rate/Area] in Serum or Plasma by Creatinine-bas ed formula (MDRD) Calcium 9.0 8.5-10.1 [facility] - [facility] [Mass/volume] mg/dL Zoroastrianism in Serum or Hospital Plasma Phosphate 2.4 2.5-4.9 Below low normal [facility] - [facility] [Mass/volume] mg/dL Zoroastrianism in Serum or Hospital Plasma Albumin 2.1 g/dL 3.5-4.7 Below low normal [facility] [Mass/volume] Zoroastrianism in Serum or Hospital Plasma by Bromocresol purple (BCP) dye binding method ID Date Data Source [id number] 12/26/2018 04:38:50 AM EDT [facility] Name Value Range Interpretation Description Data Sup porting Code Source(s) Document(s ) Magnesium 1.8 mg/dL 1.6-2.6 [facility] - [facility] [Mass/volume] Zoroastrianism in Serum or Hospital Plasma ID Date Data Source [id number] 12/26/2018 12:42:23 AM EDT [facility] Value Range Interpretation Description Data Sup porting Code Source(s) Document(s ) Glucose 137 MG/DL 65-110 Above high normal [facility] - [facility] [Mass/volume] Zoroastrianism in Blood by Hospital Automated test strip ID Date Data Source [id number] 12/25/2018 07:54:34 PM EDT [facility] Alert restless this am now relaxed and c graham. Afebrile LUE swelling passive ROMstiff rigid. Polyuria loose bm Dr Hills and d ietician aware Bolus feeds Seen byDr Hamilton. Crusty lesions right lip and nare noted. Freq oral care and suctionMitts removed at times by pt and staff No swelling/ecchym osis. LUE less swollenthis pm Name Value Range Interpretation Code Description Data [facility] rce(s) Supporting Document(s ) ID Date Data Source [id number] 12/25/2018 07:31:22 PM EDT [facility] Bedside and Verbal shift change report g iven to Daja (oncoming nurse) byWes Saldana RN(offgoing nurse). Report giv en with SBAR, Kardex, Intake/Output, MAR and RecentResults. Name Value Range Interpretation Code Description Data [facility] rce(s) Supporting Document(s ) ID Date Data Source [id number] 12/25/2018 07:25:27 PM EDT [facility] Bedside and Verbal shift change report g iven to Daja (oncoming nurse) by Wes Saldana RN(offgoing nurse). Report giv en with SBAR, Kardex, Intake/Output, MAR and RecentResults. Name Value Range Interpretation Code Description Data [facility] rce(s) Supporting Document(s ) ID Date Data Source [id number] 12/25/2018 06:51:33 PM EDT [facility] ID Progress Note12/25/2018Patient is non verbal,unable to provide any historyAfebrileS/p left pigtail catheter insertion for pleural effusion 12/19/18- culture NGTDObjective:Vitals:Patient Vit als for the past 24 hrs: BP Temp Pulse Resp SpO2 Kxqjlj06/12/19 1105 104/64 98.7 F (37.1 C) 75 [...] Supporting Document(s ) ID Date Data Source [id number] 12/25/2018 04:47:38 PM EDT [facility] Name Value Range Interpretation Description Data Sup porting Code Source(s) Document(s ) Glucose 135 MG/DL 65-110 Above high normal [facility] [Mass/volume] Zoroastrianism in Blood by Hospital Automated test strip ID Date Data Source [id number] 12/25/2018 03:19:09 PM EDT [facility] PULMONARY/ CCM- Consult NotePatient: Ivelisse Carlin Sex: male DOA: 12/12/2018Date of : 1 Age: 68 y.o. LOS: LOS: 13 daysHPI: kassie Carlin is a 68 y.o. male who has been seen for respfailure.pneumonia,recently discharge d..Patient with MR,aspiration pneumonia,dysphagia,s/p peg placement,CO PD,pulmonaryembolism,schizophrenia was transferred from the intermediate for fe fck399.3,shortness of breath and tachycardia.Patient is non verbal,unable [...] (DEPAKENE) 250 mg/5 mL (5 mL) oral fxuvqprz957 mg, 750 mg, Per G Tube, BID, [...] Output:Date 12/24/18699 - 12/25/1865812/25/18699 - 12/26/18 0659Shift 5309-5613 5849-1354 24 Hour Total 5288-1441 9140-2098 24 Hour TotalINTAKENG/GT 650 650 Water Flush [...] 7.47*PCO2 51*PO2 67*HCO3 37*Cultures:No results found for: LongaccessLab ResultsComponent Value Date/Time Culture result: NO GROWTH [...] Supporting Document(s ) ID Date Data Source [id number] 12/25/2018 02:36:46 PM EDT [facility] Name Value Range Interpretation Description Data Sup porting Code Source(s) Document(s ) pH of Arterial 7.47 7.35-7.4 Above high normal [facility] - [facility] blood 5 [facility] Carbon dioxide 51 mmHg 32-48 Above high normal [facility] - [facility] [Partial Zoroastrianism pressure] in Hospital Arterial blood Oxygen 67 mmHg 83-108 Below low normal [facility] [Partial Zoroastrianism pressure] in Hospital Arterial blood Carbon 39 19-24 Above high normal [facility] dioxide, total mmol/L Zoroastrianism [Moles/volume] Hospital in Arterial blood Bicarbonate 37 21-28 Above high normal [facility] Go od [Moles/volume] mmol/L Zoroastrianism in Arterial Hospital blood Oxygen 96 % 94-98 [facility] saturation in [facility] Base excess in 11.5 0-3 Above high normal [facility] Good Arterial blood mmol/L Zoroastrianism by calculation Hospital Body site [facility] Arterial [facility] patency Wrist Zoroastrianism artery --pre Hospital arterial puncture NASAL O26 Service comment [id number] [facility] ID Date Data Source [id number] 12/25/2018 01:58:37 PM EDT [facility] Problem: Nutrition DeficitGoal: *Optimiz e nutritional [...] Supporting Document(s ) ID Date Data Source [id number] 12/25/2018 01:57:27 PM EDT [facility] NUTRITIONFollow Up NoteSubjective: NANCY agarwal pt [...] Supporting Document(s ) ID Date Data Source [id number] 12/25/2018 12:38:55 PM EDT [facility] Name Value Range Interpretation Description Data Sup porting Code Source(s) Document(s ) Glucose 118 MG/DL 65-110 Above high normal [facility] [Mass/volume] Zoroastrianism in Blood by Hospital Automated test strip ID Date Data Source [id number] 12/25/2018 11:48:00 AM EDT [facility] Pt resting comfortably but as of [...] Supporting Document(s ) ID Date Data Source [id number] 12/25/2018 10:52:49 AM EDT [facility] Progress NOTENAME: Evelio AbrahambeinDOB : 1950MRN: [id number]/Time: 12/25/2018 9:15 AMHISTORY OF PRESENT ILLN ESS:Evelio is a 68 y.o. male who presents from [facility] with medical history ofDysphag ia with recent [...] chest , bilateral Pleural effusi on8. Restart sea captain medications via peg Covering for Admitting Physician: Oralia Frankel MD December 9:15 AM Name Value Range Interpretation Code Description Data Harriett rce(s) Supporting Document(s ) ID Date Data Source [id number] 12/25/2018 09:38:20 AM EDT [facility] Portable chest x-ray.PRIOR EXAM: X-ray HISTORY: [...] Supporting Document(s ) ID Date Data Source [id number] 12/25/2018 07:57:21 AM EDT [facility] [place] [address] [address] JERMAINE [id number]: EVELIO CARLINMRN: [id number]: 1ACCT#: [id number] DATE: 12/12/2018 CONSULTATIONCONSULT DATE: 12/18/2018HISTORY OF PRESENT [...] TREJO MDDD: #12/18/2018 10:02:09 /NEHEMIAH /tony_hsgilson_i/lester_knuJob #: [id number] / [id number] Name Value Range Interpretation Code Description Data Harriett rce(s) Supporting Document(s ) ID Date Data Source [id number] 12/25/2018 07:36:08 AM EDT [facility] Review BIPAP settings, alarms and skin a dhesive With next shift RT Marilynn Ofelia Name Value Range Interpretation Code Description Data Harriett rce(s) Supporting Document(s ) ID Date Data Source [id number] 12/25/2018 07:36:08 AM EDT [facility] Bedside and Verbal shift change report g iven to Wes Saldana RN (oncomingnurse) by Leann Ryan RN(offgoOutput, MAR an d Recent Results.ing nurse). Report given with SBAR, Kardex, Intake/ Name Value Range Interpretation Code Description Data Harriett rce(s) Supporting Document(s ) ID Date Data Source [id number] 12/25/2018 06:40:34 AM EDT [facility] Name Value Range Interpretation Description Data Sup porting Code Source(s) Document(s ) Glucose 136 MG/DL 65-110 Above high normal [facility] [Mass/volume] Zoroastrianism in Blood by Hospital Automated test strip ID Date Data Source [id number] 12/25/2018 05:08:41 AM EDT [facility] Name Value Range Interpretation Code Description Data Harriett rce(s) Supporting Document(s ) NOLOINC 2137 PG/ML 0-125 Above high normal [facility] NT-proBNP INTERPRETATION: ACUTE CHF UNLIKELY IF NT-proBNP: <125 PG/ML FOR AGE <75 <450 PG/ML FOR AGE >75 CHF LIKELY IF NT-proBNP: >450 PG/ML FOR AGE <50 >900 PG/ ML FOR AGE 50-75 >1800 PG/ML FOR AGE >75 CHF VERY LIKELY IF NT-proBNP: >10,000 PG/ML (REGARDLESS OF AGE) ID Date Data Source [id number] 12/25/2018 05:08:41 AM EDT [facility] Name Value Range Interpretation Description Data Sup porting Code Source(s) Document(s ) Magnesium 2.1 mg/dL 1.6-2.6 [facility] - [facility] [Mass/volume] Zoroastrianism in Serum or Hospital Plasma ID Date Data Source [id number] 12/25/2018 05:08:41 AM EDT [facility] Name Value Range Interpretation Description Data Sup porting Code Source(s) Document(s ) Sodium 139 136-145 [facility] [Moles/volume] mmol/L [facility] in Serum or Hospital Plasma Potassium 4.8 3.5-5.1 [facility] [Moles/volume] mmol/L [facility] in Serum or Hospital Plasma Chloride 99 98-107 [facility] [Moles/volume] mmol/L [facility] in Serum or Hospital Plasma Carbon 34 21-32 Above high normal [facility] dioxide, total mmol/L [facility] [Moles/volume] Hospital in Serum or Plasma Anion gap in 11 10-20 [facility] Serum or mmol/L [facility] Plasma Hospital Glucose 182 74-106 Above high normal [facility] [Mass/volume] mg/dL [facility]ism in Serum or Hospital Plasma Urea nitrogen 12 mg/dL 7-18 [facility] [Mass/volume] [facility]astrianism in Serum or Hospital Plasma Creatinine 0.44 0.70-1.3 Below low normal [facility] [Mass/volume] mg/dL 0 [facility] in Serum or Hospital Plasma Glomerular >60 [facility] filtration Z[facility]astrianism rate/1.73 sq M Hospital predicted among blacks [Volume Rate/Area] in Serum or Plasma by Creatinine-bas ed formula (MDRD) Glomerular >60 [facility] filtration [facility]astrianism rate/1.73 sq M Hospital predicted among non-blacks [Volume Rate/Area] in Serum or Plasma by Creatinine-bas ed formula (MDRD) Calcium 9.0 8.5-10.1 [facility] [Mass/volume] mg/dL [facility] in Serum or Hospital Plasma Phosphate 3.0 2.5-4.9 [facility] [Mass/volume] mg/dL [facility] in Serum or Hospital Plasma Albumin 1.9 g/dL 3.5-4.7 Below low normal [facility] [Mass/volume] [facility]astrianism in Serum or Hospital Plasma by Bromocresol purple (BCP) dye binding method ID Date Data Source [id number] 12/25/2018 12:21:27 AM EDT [facility] Name Value Range Interpretation Description Data Sup porting Code Source(s) Document(s ) Glucose 146 MG/DL 65-110 Above high normal [facility] [Mass/volume] Zoroastrianism in Blood by Hospital Automated test strip ID Date Data Source [id number] 12/24/2018 07:35:14 PM EDT [facility] Progress NoteMID-[facility] ,[facility].Krystian Monae MD., F.C.C.P.Stella Hamilton MD., F.C.C.P. 9W 1 [facility] [address] [place] [id number] [place] [address] [phone]: Evelio Carlin Sex: male DOA: [...] hrs : BP Temp Pulse Resp SpO2 Ylhvbr59/11/19 1537 114/67 97.7 F (36.5 C) 89 [...] - 2.6 mg/dLGLUCOSE, POC Collection T jose alejandor: 12/24/18 6:21 AMResult Value Ref Range Glucose, [...] 06:21 AM GLUCPOC 113 (H) 12/14 12:09 [email or web address] Results Procedure Component Value Units Date/Time CULTURE, ANAEROBIC [[id number]] Collected: 12/19/18 1230 Order Status: Completed Specimen: Thoracentesis Updat ed: 12/24/18 1421 Special Requests: NO SPECIAL REQUESTS Culture result: NO HAIDER WTH 4 DAYS CULTURE, URINE [[id number]] Collected: 12/24/18 0945 Order Status: Completed Specimen: Cath Urine Updated: 12/24/18 1017 CULTURE, BLOOD [[id number]] Collected: 12/23/18 1140 Order Status: Completed Specimen: Blood Updated: 03/03 0850 Special Requests: NO SPECIAL REQUESTS Culture result: NO GROWTH AFTE R 19 HOURS CULTURE, BLOOD [[id number]] Collected: 12/23/18 1200 Order Status: Completed Specimen: Blood Updated: 12/24/18 0850 Special Requests: NO SPEC IAL REQUESTS Culture result: NO GROWTH AFTER 20 HOURS CULTURE, BODY FLUID W GRAM STAI N [[id number]] Collected: 12/19/18 1230 Order Status: Completed Specimen: Left Updat ed: 12/23/18 1317 Special Requests: NO SPECIAL REQUESTS GRAM STAIN FEW WBC'S NO ORGANISMS SEEN Culture result: NO GROWTH 4 DAYS CULTURE, BLOOD [[id number]] Colle mikel: 12/12/181939 Order Status: Completed Specimen: Blood Updated: 12/17/18642 Special Requests: NO SPECIAL REQUESTS Culture result: NO GROWTH 5 DAYS CULTURE , BLOOD [[id number]] Collected: 12/12/181939 Order Status: Completed Specimen: Bloo d Updated: 12/17/18642 Special Requests: NO SPECIAL REQUESTS Culture result: NO GROWTH 5 DAYS CULTURE, URINE [[id number]] Collected: 12/12/182003 Order Status: Completed Specimen: Urine Updated: 12/14/1814 Special Requests: NO SPEC IAL REQUESTS Culture result: NO GROWTH 1 DAY CULTURE, URINE [[id number]] Collected: 0 12/12/181929 Order Status: Canceled Specimen: [...] CARLIN THIS IS AFINAL REPORT FROM IMAGING RESIDENTIAL SALES REPRESENTATIVE DATE OF SERVICE: 2018-12-18 01:22:40 IMAGES:555 EXAM: [...] 12/18/2018 04:49 GINA Verde Please call Imaging Canal Structure Operator [phone]) with questions. This report was electronically signed [...] coronal, and 3-Dreconstructed images obtained on an [employer] workstation are submitted. Noprior studies are available [...] placed on the t able in the qvaxr-vvuq-weih decubitus position.CT scanning was performed locat ion [...] location.Attempts were made to pass an 8 Emir[place] pigtail catheter throug h this location.However, patient [...] peg placement,CO PD,pulmonaryembolism,schizophrenia was transferred from the intermediate for fe kdw337.3,shortness of breath and tachycardia.Patient is non verbal,unable toprovide history.History obtained from chart review.He was started on IVcefepim e,solumedrol and given a dose of IV vancomycin as per records from [place].Hewas afebrile on arrival to the ER with [...] , ABG IN AM Krystian Monae MD F.C.C.P.[facility]24 PM Name Value Range Interpretation Code Description Data Harriett rce(s) Supporting Document(s ) ID Date Data Source [id number] 12/24/2018 07:23:57 PM EDT [facility] Bedside and Verbal shift change report g iven to Leann Ryan RN (oncoming nurse)by Rama Jaimes RN(offgoing nurse). Rep ort given with SBAR, Kardex, Intake/Output, MAR and RecentResults. Name Value Range Interpretation Code Description Data Harriett rce(s) Supporting Document(s ) ID Date Data Source [id number] 12/24/2018 07:33:39 PM EDT [facility] Name Value Range Interpretation Description Data Sup porting Code Source(s) Document(s ) Glucose 116 MG/DL 65-110 Above high normal [facility] - Good [Mass/volume] Zoroastrianism in Blood by Hospital Automated test strip ID Date Data Source [id number] 12/24/2018 12:14:55 PM EDT [facility] Name Value Range Interpretation Description Data Sup porting Code Source(s) Document(s ) Glucose 106 MG/DL 65-110 [facility] [Mass/volume] [facility]oroastrianism in Blood by Hospital Automated test strip ID Date Data Source [id number] 12/24/2018 11:28:58 AM EDT [facility] Pt needs PEG converted to J Tube once re sp status stable. Con' t to desaturate.CM to follow.1120 amEMERGENCY CONTACTS for pt are:1) JOYCE OVALLE (cousin) [phone] And [phone] [employer]decision ( is a physician) with consultation with sisters below.2) MICHELL JORGE (s ister) [phone]) YULIET JIM [phone] with Joyce uribe who reports family does not want DNR and/or palliativecare - they want aggressive ca re. Name Value Range Interpretation Code Description Data Harriett rce(s) Supporting Document(s ) ID Date Data Source [id number] 12/24/2018 11:01:40 AM EDT [facility] Progress NOTENAME: Evelio AbrahambeinDOB : 1950MRN: [id number]/Time: 12/24/2018 9:15 AMHISTORY OF PRESENT ILLN ESS:Evelio is a 68 y.o. male who presents from [facility] with medical history ofDysphag ia with recent [...] CT chest , bilateral Pleural effusion8. Restart sea captain medications via peg Covering for Admitting Physician: Oralia Frankel MD December 9:15 AM Name Value Range Interpretation Code Description Data Harriett rce(s) Supporting Document(s ) ID Date Data Source [id number] 12/24/2018 10:22:42 AM EDT [facility] ID Progress Note12/24/2018Patient is non verbal,unable to provide any historyWBC is pendingPt awaiting EGDAfebrileS/p left p igtail catheter insertion for pleural effusion 12/19/18- culture NGTDObjective:V itals:Patient Vitals for the past 24 hrs: BP Temp Pulse Resp SpO2 Nzjajd78/11/19 0803 - - - - 97 % [...] Supporting Document(s ) ID Date Data Source [id number] 12/24/2018 10:08:33 AM EDT [facility] Pt is more comfortable on [place] oxygen.Non verbalExam: VSS, O2 sat 90%Abd: soft, NTNDA/pAspiration pneumonia- improvedEGD with J-tube extension when pulmonary status more stable Name Value Range Interpretation Code Description Data Harriett rce(s) Supporting Document(s ) ID Date Data Source [id number] 12/26/2018 11:46:24 AM EDT [facility] Name Value Range Interpretation Description Data Sup porting Code Source(s) Document(s ) Service comment [facility] Bacteria [facility] identified in [facility] Unspecified Hospital specimen by Culture ID Date Data Source [id number] 12/24/2018 10:17:22 AM EDT [facility] Name Value Range Interpretation Description Data Sup porting Code Source(s) Document(s ) Color of Urine YEL [facility] Appearance of CLEAR [facility] Urine [facility] Specific gravity 1.007 1.003-1. [facility] - of Urine by 030 Good Refractometry [facility] pH of Urine by 8.0 4.6-8.0 [facility] - Test strip [facility] Protein NEG [facility] - [Mass/volume] in Good Urine by Test [facility] Glucose NEG [facility] - [Mass/volume] in Good Urine by [facility] Automated test Hospital strip Ketones NEG [facility] - [Presence] in Good Urine by [facility] Automated test Hospital strip Bilirubin.total NEG [facility] - [Presence] in Good Urine [facility] Hemoglobin NEG [facility] - [Presence] in Good Urine by Test [facility] Urobilinogen 0.2 0.2-1.0 [facility] - [Presence] in EU/dL Good Urine by [facility] Automated test Hospital strip Nitrite NEG [facility] - [Presence] in Good Urine by [facility] Automated test Hospital strip Leukocyte NEG [facility] - esterase Good [Presence] in [facility]oroastrianism Urine by Hospital Automated test strip ID Date Data Source [id number] 12/24/2018 07:45:57 AM EDT [facility] Bedside and Verbal shift change report g iven to Rama Jaimes RN (oncomingnurse) by Leann Ryan RN(offgoing nurse). Re port given with SBAR, Kardex, Intake/Output, MAR and RecentResults. Name Value Range Interpretation Code Description Data Harriett rce(s) Supporting Document(s ) ID Date Data Source [id number] 12/24/2018 06:32:49 AM EDT [facility] Name Value Range Interpretation Description Data Sup porting Code Source(s) Document(s ) Glucose 96 MG/DL 65-110 [facility] [Mass/volume] [facility]astrianism in Blood by Hospital Automated test strip ID Date Data Source [id number] 12/24/2018 05:24:19 AM EDT [facility] Name Value Range Interpretation Description Data Sup porting Code Source(s) Document(s ) Sodium 139 136-145 [facility] [Moles/volume] mmol/L [facility] in Serum or Hospital Plasma Potassium 4.8 3.5-5.1 [facility] [Moles/volume] mmol/L [facility] in Serum or Hospital Plasma Chloride 99 98-107 [facility] [Moles/volume] mmol/L [facility] in Serum or Hospital Plasma Carbon 36 21-32 Above high normal [facility] dioxide, total mmol/L [facility] [Moles/volume] Hospital in Serum or Plasma Anion gap in 9 mmol/L 10-20 Below low normal [facility] - Go od Serum or [facility] Plasma Hospital Glucose 100 74-106 [facility] [Mass/volume] mg/dL [facility] in Serum or Hospital Plasma Urea nitrogen 9 mg/dL 7-18 [facility] [Mass/volume] [facility]astrianism in Serum or Hospital Plasma Creatinine 0.36 0.70-1.3 Below low normal [facility] [Mass/volume] mg/dL 0 [facility]ism in Serum or Hospital Plasma Glomerular >60 [facility] filtration Zoroastrianism rate/1.73 sq M Hospital predicted among blacks [Volume Rate/Area] in Serum or Plasma by Creatinine-bas ed formula (MDRD) Glomerular >60 [facility] - [facility] filtration Z[facility]astrianism rate/1.73 sq M Hospital predicted among non-blacks [Volume Rate/Area] in Serum or Plasma by Creatinine-bas ed formula (MDRD) Calcium 8.6 8.5-10.1 [facility] [Mass/volume] mg/dL [facility]ism in Serum or Hospital Plasma Phosphate 3.7 2.5-4.9 [facility] [Mass/volume] mg/dL [facility] in Serum or Hospital Plasma Albumin 1.8 g/dL 3.5-4.7 Below low normal [facility] [Mass/volume] [facility]astrianism in Serum or Hospital Plasma by Bromocresol purple (BCP) dye binding method ID Date Data Source [id number] 12/24/2018 05:24:19 AM EDT [facility] Name Value Range Interpretation Description Data Sup porting Code Source(s) Document(s ) Magnesium 2.0 mg/dL 1.6-2.6 [facility] [Mass/volume] [facility]astrianism in Serum or Hospital Plasma ID Date Data Source [id number] 12/24/2018 12:24:08 AM EDT [facility] Name Value Range Interpretation Description Data Sup porting Code Source(s) Document(s ) Glucose 113 MG/DL 65-110 Above high normal [facility] [Mass/volume] [facility]astrianism in Blood by Hospital Automated test strip ID Date Data Source [id number] 12/23/2018 07:44:16 PM EDT [facility] Bedside and Verbal shift change report carol pham to Leann ryan (oncoming nurse) Rafael Saldana RN(offgoing nurse). Report giv en with SBAR, Kardex, Intake/Output, MAR and RecentResults. Name Value Range Interpretation Code Description Data Harriett rce(s) Supporting Document(s ) ID Date Data Source [id number] 12/23/2018 07:43:55 PM EDT [facility] Mitts and venodynes removed periodically Hands are warm and mobile Name Value Range Interpretation Code Description Data Harriett rce(s) Supporting Document(s ) ID Date Data Source [id number] 12/23/2018 06:50:14 PM EDT [facility] O2 sat 94-96% most of day desat briefly this am at times but returns to 94-97.Alert Occ moist cough Oral care and suction C ondom cath turned and repositionedq 2h Venodynes removed x 1 hr Green leg booti es intact HOB up Bolus fdgs viagravity tolerated Name Value Range Interpretation Code Description Data Harriett rce(s) Supporting Document(s ) ID Date Data Source [id number] 12/23/2018 06:14:11 PM EDT [facility] Name Value Range Interpretation Description Data Sup porting Code Source(s) Document(s ) Glucose 116 MG/DL 65-110 Above high normal [facility] [Mass/volume] [facility]astrianism in Blood by Hospital Automated test strip ID Date Data Source [id number] 12/23/2018 12:13:49 PM EDT [facility] PULMONARY/ CCM- Consult NotePatient: Ivelisse nuel Fischbein Sex: male DOA: 12/12/2018Date of : 1 Age: 68 y.o. LOS: LOS: 11 daysHPI: kassie Carlin is a 68 y.o. male who has been seen for respfailure.pneumonia,recently discharge d..Patient with MR,aspiration pneumonia,dysphagia,s/p peg placement,CO PD,pulmonaryembolism,schizophrenia was transferred from the intermediate for fe ttw053.3,shortness of breath and tachycardia.Patient is non verbal,unable [...] oral mg, 750 mg, Per G Tube, BID, [...] 065 9 12/23/18 07 - 12/24/18 0659Shift 6103-8625 1580-4960 24 Hour Total 0700-1 859 5410-7222 24 Hour TotalINTAKENG/GT 141 474 3864 Water Flush Volume (mL) (PEG/G astrostomy Tube [...] the last 72 hours.Cultures:No results found for: [email or web address].ruESLab ResultsComponent Valu e Date/Time Culture result: NO [...] Supporting Document(s ) ID Date Data Source [id number] 12/28/2018 07:02:55 AM EDT [facility] Name Value Range Interpretation Description Data Sup porting Code Source(s) Document(s ) Service comment [facility] Bacteria [facility] identified in [facility] specimen by Culture ID Date Data Source [id number] 12/23/2018 12:35:21 PM EDT [facility] Name Value Range Interpretation Description Data Sup porting Code Source(s) Document(s ) Glucose 85 MG/DL 65-110 [facility] - Good [Mass/volume] Zoroastrianism in Blood by Hospital Automated test strip ID Date Data Source [id number] 12/28/2018 07:02:53 AM EDT [facility] Name Value Range Interpretation Description Data Sup porting Code Source(s) Document(s ) Service comment [facility] Bacteria [facility] identified in [facility] specimen by Culture ID Date Data Source [id number] 12/23/2018 11:35:20 AM EDT [facility] Progress NOTENAME: Evelio FischbeinDOB : 1950MRN: [id number]/Time: 12/23/2018 9:15 AMHISTORY OF PRESENT ILLN ESS:Evelio is a 68 y.o. male who presents from [facility] with medical history ofDysphag ia with recent [...] G Tuberoute Daily (before breakfast). 11/28 Yes [place] DObudesonide (PULMICORT) 0.5 mg/2 mL nbsp [...] CT chest , bilateral Pleural effusion8. Restart sea captain medications via peg Covering for Admitting Physician: Oralia Frankel MD December 9:15 AM Name Value Range Interpretation Code Description Data Harriett rce(s) Supporting Document(s ) ID Date Data Source [id number] 12/23/2018 11:18:52 AM EDT [facility] ID Progress Note12/23/2018Patient is non verbal,unable to provide any historyPt wbc count up to 17KPt awaiting EGDAfebrileS/ p left pigtail catheter insertion for pleural effusion 12/19/18- culture NGTDObjective:V itals:Patient Vitals for the past 24 hrs: BP Temp Pulse Resp SpO2 Xrmuaf03/10/19 0710 100/68 97 F (36.1 C) 81 [...] respiratory failure with hypoxia and hypercapnia. Acute [employer] D exacerbation. Dysphagia. Atelectasis. Pleural effusion. Leukocytosis Plan: 1. Continue IV zosyn2. Repeat blood cx and UA, UCx3. Follow cultures.Monica Gomez, MARICELeptember [id number] AM Name Value Range Interpretation Code Description Data Harriett rce(s) Supporting Document(s ) ID Date Data Source [id number] 12/23/2018 09:38:28 AM EDT [facility] GIConsent is still pending for EGD with conversion of g- tube to J-tubeIn addition, his 02 sat on 6 liters (with good tracin g) is in the 80s (RNinformed)Will therefore defer procedure today and re-evaluate to oneal- will stillattempt to get consent. Name Value Range Interpretation Code Description Data [facility] rce(s) Supporting Document(s ) ID Date Data Source [id number] 12/23/2018 07:46:58 AM EDT [facility] Bedside and Verbal shift change report g iven to Wes Saldana RN (oncomingnurse) by Leann Ryan RN(offgoing nurse). Re port given with SBAR, Kardex, Intake/Output, MAR and RecentResults. Name Value Range Interpretation Code Description [facility] Document(s ) ID Date Data Source [id number] 12/23/2018 06:39:17 AM EDT [facility] TRANSFER - IN REPORT:Verbal report recei nathaly from Leann PITTS on Evelio Carlin being received from[address] [place] [address] for ordered procedureReport consisted of patient's Situation, Background, Assessment andRec ommendations(SBAR).Information from the following report(s) SBAR and MAR was rev iewed with thereceiving nurse.Opportunity for questions and clarification was provided .Assessment completed upon patient's arrival to unit and care assumed. Name Value Range Interpretation Code Description Data [facility] Supporting Document(s ) ID Date Data Source [id number] 12/23/2018 05:15:19 AM EDT [facility] Problem: Pneumonia: Day 1Goal: Off Pathw ay (Use only if patient is Off Pathway)Outcome: Progressing Towards Goa lProblem: Non-Violent RestraintsGoal: *No harm/injury to patient while restraints in useOutcome: Progressing Towards GoalGoal: *Patient's dignity will be maintainedOut come: Progressing Towards GoalGoal: Non-violent Restaints:Standard Intervent ionsOutcome: Progressing Towards GoalGoal: Non-violent Restraints:Patient Intervent ionsOutcome: Progressing Towards Goal Name Value Range Interpretation Code Description Data [facility] rce(s) Supporting Document(s ) ID Date Data Source [id number] 12/23/2018 09:19:36 AM EDT [facility] Name Value Range Interpretation Description Data Sup porting Code Source(s) Document(s ) Leukocytes 17.1 4.8-10.6 Above high normal [facility] - [#/volume] in K/uL Good Blood by [facility] Automated count Hospital Erythrocytes 3.48 4.70-6.0 Below low normal [facility] - [#/volume] in M/uL 0 Good Blood by [facility]rianism Automated count Hospital Hemoglobin 11.6 14.0-18. Below low normal [facility] - [Mass/volume] in g/dL 0 Good Blood [facility] Hematocrit 35.0 % 42.0-52. Below low normal [facility] - [Volume 0 Good Fraction] of Zoroastrianism Blood by Hospital Automated count Erythrocyte mean 100.6 FL 81.0-94. Above high normal [facility] - corpuscular 0 Good volume [Entitic Zoroastrianism volume] by Hospital Automated count Erythrocyte mean 33.3 PG 27.0-35. [facility] - corpuscular 0 Good hemoglobin Zoroastrianism [Entitic mass] Hospital by Automated count Erythrocyte mean 33.1 30.7-37. [facility] - corpuscular g/dL 3 Good hemoglobin [facility] [Mass/volume] by Automated count Erythrocyte 17.9 % 11.5-14. Above high normal [facility] - distribution 0 Good width [Ratio] by [facility]oroastrianism Automated count Hospital Platelets 266 K/uL 130-400 [facility] - [#/volume] in Good Blood by Zoroastrianism Automated count [facility] Platelet mean 9.7 FL 9.2-11.8 [facility] - volume [Entitic Good volume] in Blood Zoroastrianism by Automated Hospital count ID Date Data Source [id number] 12/23/2018 05:40:40 AM EDT [facility] Name Value Range Interpretation Description Data Sup porting Code Source(s) Document(s ) Magnesium 2.1 mg/dL 1.6-2.6 [facility] [Mass/volume] Zoroastrianism in Serum or Hospital Plasma ID Date Data Source [id number] 12/23/2018 05:40:40 AM EDT [facility] Name Value Range Interpretation Description Data Sup porting Code Source(s) Document(s ) Sodium 143 136-145 [facility] - [facility] [Moles/volume] mmol/L [facility]ism in Serum or Hospital Plasma Potassium 4.4 3.5-5.1 [facility] - [facility] [Moles/volume] mmol/L [facility]ism in Serum or Hospital Plasma Chloride 101 98-107 [facility] - [facility] [Moles/volume] mmol/L [facility]ism in Serum or Hospital Plasma Carbon 35 21-32 Above high normal [facility] - Good dioxide, total mmol/L [facility]ism [Moles/volume] Hospital in Serum or Plasma Anion gap in 12 10-20 [facility] - Good Serum or mmol/L [facility] Plasma Hospital Glucose 101 74-106 [facility] - [facility] [Mass/volume] mg/dL Zoroastrianism in Serum or Hospital Plasma Urea nitrogen 12 mg/dL 7-18 [facility] - [facility] [Mass/volume] Zoroastrianism in Serum or Hospital Plasma Creatinine 0.43 0.70-1.3 Below low normal [facility] - [facility] [Mass/volume] mg/dL 0 Zoroastrianism in Serum or Hospital Plasma Glomerular >60 [facility] - Good filtration Zoroastrianism rate/1.73 sq M Hospital predicted among blacks [Volume Rate/Area] in Serum or Plasma by Creatinine-bas ed formula (MDRD) Glomerular >60 [facility] - Good filtration Zoroastrianism rate/1.73 sq M Hospital predicted among non-blacks [Volume Rate/Area] in Serum or Plasma by Creatinine-bas ed formula (MDRD) Calcium 8.2 8.5-10.1 Below low normal [facility] - Good [Mass/volume] mg/dL Zoroastrianism in Serum or Hospital Plasma Phosphate 4.1 2.5-4.9 [facility] - Good [Mass/volume] mg/dL [facility]astrianism in Serum or Hospital Plasma Albumin 2.0 g/dL 3.5-4.7 Below low normal [facility] - [facility] [Mass/volume] Zoroastrianism in Serum or Hospital Plasma by Bromocresol purple (BCP) dye binding method ID Date Data Source [id number] 12/23/2018 02:06:03 AM EDT [facility] Problem: Pneumonia: Day 1Goal: Off Pathw ay (Use only if patient is Off Pathway)Outcome: Progressing Towards Goa l Name Value Range Interpretation Code Description Data Harriett rce(s) Supporting Document(s ) ID Date Data Source [id number] 12/23/2018 12:20:16 AM EDT [facility] Name Value Range Interpretation Description Data Sup porting Code Source(s) Document(s ) Glucose 132 MG/DL 65-110 Above high normal [facility] [Mass/volume] Zoroastrianism in Blood by Hospital Automated test strip ID Date Data Source [id number] 12/22/2018 10:51:58 PM EDT [facility] Progress NoteMID-[facility] ,[facility].Krystian Monae MD., F.C.C.P.Stella Hamilton MD., F.C.C.P. [address] [place] [id number] [place] [address] [phone]: Evelio Carlin Sex: male DOA: [...] 24 hrs: BP Temp Pulse Resp SpO2 [id number] - - - - 96 % -12/22/181999 [...] 9 11:59 AM GLUCPOC 73 12/22/2018 06:25 AM@[email or web address] icr Results Procedure Component Value Units Date/Time CULTURE, BODY FLUID W GRAM STA IN [[id number]] Collected: 12/19/18 1230 Order Status: Completed Specimen: Left Updated: 12/22/18 110 Special Requests: NO SPECIAL REQUESTS GRAM STAIN FEW WBC' S NO ORGANISMS SEEN Culture result: NO GROWTH 3 DAYS CULTURE, ANAEROBIC [[id number]] Collected: 12/19/18 1230 Order Status: Completed Specimen: Thoracentesis Updat ed: 12/21/18 1144 Special Requests: NO SPECIAL REQUESTS Culture result: NO HAIDER WTH 2 DAYS CULTURE, BLOOD [[id number]] Collected: 12/12/181939 Order Status: Completed Specimen: Blood Updated: 12/17/18642 Special Requests: NO SPEC IAL REQUESTS Culture result: NO GROWTH 5 DAYS CULTURE, BLOOD [[id number]] Collecte d: 12/12/181939 Order Status: Completed Specimen: Blood Updated: 12/17/18642 Special Requests: NO SPECIAL REQUESTS Culture result: NO GROWTH 5 DAYS CULTURE , URINE [[id number]] Collected: 12/12/182003 Order Status: Completed Specimen: Urin e Updated: 12/14/18913 Special Requests: NO SPECIAL REQUESTS Culture result: NO GROWTH 1 DAY CULTURE, URINE [[id number]] Collected: 12/12/181929 Order Status: Canceled Specimen: Cath [...] EVELIO CARLIN THIS IS AFINAL REPORT FROM KTAJADevang BERGER RESIDENTIAL SALES REPRESENTATIVE DATE OF SERVICE: 2018-12-18 01:22:40 IMAGES:555 EXAM: [...] 12/18/2018 04:49 GINA Verde Please call Imaging Canal Structure Operator [phone] with questions. This report was electronically signed by: Tala MENDEZ 12/18/2018 04: 50 [facility] Chest Wo ContResult Date: 12/13/2018History: Respiratory difficulty [...] coronal, and 3-Dreconstructed images obtained on an [employer] workstation are submitted. Noprior studies are available [...] placed on the t able in the fvgqe-epms-jqsr decubitus position.CT scanning was performed locat ion [...] location.Attempts were made to pass an 8 Emirati pigtail catheter throug h this location.However, patient [...] peg placement,CO PD,pulmonaryembolism,schizophrenia was transferred from the intermediate for fe duv163.3,shortness of breath and tachycardia.Patient is non verbal,unable toprovide history.History obtained from chart review.He was started on IVcefepim e,solumedrol and given a dose of IV vancomycin as per records from [place].Hewas afebrile on arrival to the ER with [...] Name Value Range Interpretation Code Description Data [facility] Supporting Document(s ) ID Date Data Source [id number] 12/22/2018 07:26:06 PM EDT [facility] Bedside and Verbal shift change report carol pham to leann ryan RN (oncoming nurse)by Noemy Molina RN(offgoing nurse ). Report given with SBAR, Kardex, Intake/Output, MAR and RecentResults. Name Value Range Interpretation Code Description Data [facility](s) Supporting Document(s ) ID Date Data Source [id number] 12/22/2018 06:10:46 PM EDT [facility] Name Value Range Interpretation Description Data Sup porting Code Source(s) Document(s ) Glucose 109 MG/DL 65-110 [facility] [Mass/volume] Zoroastrianism in Blood by Hospital Automated test strip ID Date Data Source [id number] 12/22/2018 03:17:13 PM EDT [facility] Hospital ID Progress Note12/22/2018Patient is non v erbal,unable to provide any historyAfebrileS/p left pigtail catheter insertion for pleural effusion 12/19/18, gram stain withfew wbc, culture NGTDObjective :Vitals:Patient Vitals for the past 24 hrs: BP Temp Pulse Resp SpO2 Kyxidm08/09/19 1 131 109/60 97.2 F (36.2 C) [...] respiratory failure with hypoxia and hypercapnia. Acute [employer]SEM[employer] D exacerbation. Dysphagia. Atelectasis. Pleural effusion. Plan:1. Continue IV zosyn one more day then discontinue2. Follow cultures.Monica Gomez, MARICELeptember 9, 2 [id number] PM Name Value Range Interpretation Code Description Data Harriett rce(s) Supporting Document(s ) ID Date Data Source [id number] 12/22/2018 01:55:50 PM EDT [facility] Relevant ProblemsNo relevant active prob lemsAnesthetic [...] Supporting Document(s ) ID Date Data Source [id number] 12/22/2018 01:52:57 PM EDT [facility] Problem: Nutrition DeficitGoal: *Optimiz e nutritional [...] Supporting Document(s ) ID Date Data Source [id number] 12/22/2018 01:49:08 PM EDT [facility] NUTRITIONFollow Up NoteSubjective: Pt fo r [...] Supporting Document(s ) ID Date Data Source [id number] 12/22/2018 01:27:57 PM EDT [facility] Patient seen and examined. He was [...] Supporting Document(s ) ID Date Data Source [id number] 12/22/2018 12:10:40 PM EDT [facility] Name Value Range Interpretation Description Data Sup porting Code Source(s) Document(s ) Glucose 86 MG/DL 65-110 [facility] [Mass/volume] Zoroastrianism in Blood by Hospital Automated test strip ID Date Data Source [id number] 12/22/2018 10:12:08 AM EDT [facility] Patient's sao2 is 72% on 4 lt nasal canu la, placed on BIPAP. Name Value Range Interpretation Code Description Data Harriett rce(s) Supporting Document(s ) ID Date Data Source [id number] 12/22/2018 10:07:05 AM EDT [facility] Progress NOTENAME: Evelio FischbeinDOB : 1950MRN: [id number]/Time: 12/22/2018 9:15 AMHISTORY OF PRESENT ILLNE SS:Evelio is a 68 y.o. male who presents from [facility] with medical history ofDysphag ia with recent [...] CT chest , bilateral Pleural effusion8. Restart sea captain medicatio ns via peg Covering for Admitting Physician: Oralia Frankel MD December 22, 2018 9:15 AM Name Value Range Interpretation Code Description Data Harriett rce(s) Supporting Document(s ) ID Date Data Source [id number] 12/22/2018 07:20:22 AM EDT [facility] Bedside and Verbal shift change report g iven to Noemy Molina RN (oncoming nurse)by Shira Beatty RN(offgoing nurse). Report given with SBAR, Kardex, Intake/Output, MAR and RecentResults. Name Value Range Interpretation Code Description Data Harriett rce(s) Supporting Document(s ) ID Date Data Source [id number] 12/22/2018 07:19:55 AM EDT [facility] Fingerstick is 73 now. Patient is being kept npo for possible jejunostomytoday. Dr. Hills called to notify. Awaiting for r eturn call. Name Value Range Interpretation Code Description Data [facility] rce(s) Supporting Document(s ) ID Date Data Source [id number] 12/22/2018 06:45:19 AM EDT [facility] Name Value Range Interpretation Description Data Sup porting Code Source(s) Document(s ) Glucose 73 MG/DL 65-110 [facility] [Mass/volume] Zoroastrianism in Blood by Hospital Automated test strip ID Date Data Source [id number] 12/22/2018 04:41:20 AM EDT [facility] Name Value Range Interpretation Description Data Sup porting Code Source(s) Document(s ) Sodium 137 136-145 [facility] [Moles/volume] mmol/L Zoroastrianism in Serum or Hospital Plasma Potassium 4.6 3.5-5.1 [facility] [Moles/volume] mmol/L Zoroastrianism in Serum or Hospital Plasma Chloride 98 98-107 [facility] [Moles/volume] mmol/L Zoroastrianism in Serum or Hospital Plasma Carbon 35 21-32 Above high normal [facility] dioxide, total mmol/L Zoroastrianism [Moles/volume] Hospital in Serum or Plasma Anion gap in 8 mmol/L 10-20 Below low normal [facility] od Serum or Zoroastrianism Plasma Hospital Glucose 113 74-106 Above high normal [facility] [Mass/volume] mg/dL Zoroastrianism in Serum or Hospital Plasma Urea nitrogen 17 mg/dL 7-18 [facility] [Mass/volume] Zoroastrianism in Serum or Hospital Plasma Creatinine 0.33 0.70-1.3 Below low normal [facility] [Mass/volume] mg/dL 0 Zoroastrianism in Serum or Hospital Plasma Glomerular >60 [facility] - [facility] filtration Zoroastrianism rate/1.73 sq M Hospital predicted among blacks [Volume Rate/Area] in Serum or Plasma by Creatinine-bas ed formula (MDRD) Glomerular >60 [facility] - [facility] filtration Zoroastrianism rate/1.73 sq M Hospital predicted among non-blacks [Volume Rate/Area] in Serum or Plasma by Creatinine-bas ed formula (MDRD) Calcium 8.0 8.5-10.1 Below low normal [facility] [Mass/volume] mg/dL Zoroastrianism in Serum or Hospital Plasma Phosphate 3.6 2.5-4.9 [facility] [Mass/volume] mg/dL Zoroastrianism in Serum or Hospital Plasma Albumin 1.9 g/dL 3.5-4.7 Below low normal [facility] [Mass/volume] Zoroastrianism in Serum or Hospital Plasma by Bromocresol purple (BCP) dye binding method ID Date Data Source [id number] 12/22/2018 04:41:20 AM EDT [facility] Name Value Range Interpretation Description Data Sup porting Code Source(s) Document(s ) Magnesium 2.1 mg/dL 1.6-2.6 [facility] [Mass/volume] Zoroastrianism in Serum or Hospital Plasma ID Date Data Source [id number] 12/22/2018 12:17:11 AM EDT [facility] Name Value Range Interpretation Description Data Sup porting Code Source(s) Document(s ) Glucose 138 MG/DL 65-110 Above high normal [facility] [Mass/volume] Zoroastrianism in Blood by [facility] Automated test strip ID Date Data Source [id number] 12/21/2018 08:27:55 PM EDT [facility] ID Progress Note12/21/2018Subjective:Pt se en court messenger todayPatient is non verbal,unable to provide any historyAfeb Jude/p left pigtail catheter insertion for pleural effusion 12/19/18, gram stain with few wbc, culture NGTDObjective:Vitals:Patient Vitals for the past 24 hrs: BP Temp Puls e Resp SpO2 Vkezqu24/08/19 1841 - - - - 99 % [...] Name Value Range Interpretation Code Description Data [facility] rce(s) Supporting Document(s ) ID Date Data Source [id number] 12/21/2018 07:27:55 PM EDT [facility] Bedside and Verbal shift change report g iven to Shira beatty RN (oncomingnurse) by Noemy Molina RN(offgoing nu rse). Report given with SBAR, Kardex, Intake/Output, MAR and RecentResults. Name Value Range Interpretation Code Description Data [facility] rce(s) Supporting Document(s ) ID Date Data Source [id number] 12/21/2018 06:24:37 PM EDT [facility] Name Value Range Interpretation Description Data Sup porting Code Source(s) Document(s ) Glucose 110 MG/DL 65-110 [facility] [Mass/volume] Zoroastrianism in Blood by Hospital Automated test strip ID Date Data Source [id number] 12/21/2018 04:04:01 PM EDT [facility] PULMONARY/ CCM- Consult NotePatient: Ivelisse Carlin Sex: male DOA: 12/12/2018Date of : 1 Age: 68 y.o. LOS: LOS: 9 daysHPI: kassie Carlin is a 68 y.o. male who has been seen for respfailure.pneumonia,recently discharge d..Patient with MR,aspiration pneumonia,dysphagia,s/p peg placement,CO PD,pulmonaryembolism,schizophrenia was transferred from the intermediate for fe zhb937.3,shortness of breath and tachycardia.Patient is non verbal,unable [...] oral mg, 750 mg, Per G Tube, BID, [...] Output:Date 12/20/18699 - 12/21/1865812/21/18699 - 01/01 0659Shift 5223-8468 4958-0441 24 Hour Total 4915-5432 0305-9398 24 Hour TotalI NTAKEI.V.(mL/kg/hr) 100(0.1) 100(0.1) Volume [...] the last 72 hours.Cultures:No results found for: REGIONAL COMMERCIAL SALES MANAGER SLab ResultsComponent Value Date/Time Culture result: NO GROWTH 2 DAYS 12/19/2018 12:3 0 PM Culture result: NO GROWTH 2 DAYS 12/19/2018 12:30 PM Culture result: NO G SHASHANK 1 DAY 12/12/2018 08:04 PM Culture result: [...] Supporting Document(s ) ID Date Data Source [id number] 12/21/2018 02:03:52 PM EDT [facility] Name Value Range Interpretation Description Data Sup porting Code Source(s) Document(s ) Glucose 112 MG/DL 65-110 Above high normal [facility] [Mass/volume] Zoroastrianism in Blood by Hospital Automated test strip ID Date Data Source [id number] 12/21/2018 01:31:29 PM EDT [facility] History: ? Maturity of g-tube tractTechn ique:CT [...] lack of oral contrast.[facility] using dose optimization techniqueasappropriate [...] Name Value Range Interpretation Code Description Data [facility] rce(s) Supporting Document(s ) ID Date Data Source [id number] 12/21/2018 12:27:03 PM EDT [facility] Ct abd/pelvis Done Name Value Range Interpretation Code Description Data [facility] rce(s) Supporting Document(s ) ID Date Data Source [id number] 12/21/2018 11:25:06 AM EDT [facility] Progress NOTENAME: Evelio JaradbeinDOB : 1950MRN: [id number]/Time: 12/21/2018 9:15 AMHISTORY OF PRESENT ILLNE SS:Evelio is a 68 y.o. male who presents from [facility] with medical history ofDysphag ia with recent [...] CT chest , bilateral Pleural effusion8. Restart sea captain medications via peg Covering for Admitting Physician: Mireya Magaña December 21, 2018 9:15 AM Name Value Range Interpretation Code Description Data [facility] rce(s) Supporting Document(s ) ID Date Data Source [id number] 12/21/2018 09:21:13 AM EDT [facility] Patient non-verbal.Visit VitalsBP 103/70 (BP 1 [...] Name Value Range Interpretation Code Description Data [facility] Supporting Document(s ) ID Date Data Source [id number] 12/21/2018 07:38:33 AM EDT [facility] Bedside and Verbal shift change report g iven to Noemy Molina, NANCY (oncomingnurse) by Leann Ryan RN(offgoing nurse). Repor t given with SBAR, Kardex, Intake/Output, MAR and RecentResults. Name Value Range Interpretation Code Description Data [facility] Supporting Document(s ) ID Date Data Source [id number] 12/21/2018 07:00:14 AM EDT [facility] Review BiPAP settings, alarms and skin a dhesive with next shift RT Hanny Tellez .BiPAP wiped down with bleach wipes. Name Value Range Interpretation Code Description Data [facility] rce(s) Supporting Document(s ) ID Date Data Source [id number] 12/21/2018 04:13:05 AM EDT [facility] Name Value Range Interpretation Description Data Sup porting Code Source(s) Document(s ) Sodium 141 136-145 [facility] [Moles/volume] mmol/L Zoroastrianism in Serum or Hospital Plasma Potassium 4.5 3.5-5.1 [facility] [Moles/volume] mmol/L Zoroastrianism in Serum or Hospital Plasma Chloride 100 98-107 [facility] [Moles/volume] mmol/L Zoroastrianism in Serum or Hospital Plasma Carbon 36 21-32 Above high normal [facility] - [facility] dioxide, total mmol/L Zoroastrianism [Moles/volume] Hospital in Serum or Plasma Anion gap in 9 mmol/L 10-20 Below low normal [facility] od Serum or Zoroastrianism Plasma Hospital Glucose 142 74-106 Above high normal [facility] [Mass/volume] mg/dL Zoroastrianism in Serum or Hospital Plasma Urea nitrogen 22 mg/dL 7-18 Above high normal [facility] [Mass/volume] Zoroastrianism in Serum or Hospital Plasma Creatinine 0.45 0.70-1.3 Below low normal [facility] [Mass/volume] mg/dL 0 Zoroastrianism in Serum or Hospital Plasma Glomerular >60 [facility] - Good filtration Zoroastrianism rate/1.73 sq M Hospital predicted among blacks [Volume Rate/Area] in Serum or Plasma by Creatinine-bas ed formula (MDRD) Glomerular >60 [facility] - Good filtration Zoroastrianism rate/1.73 sq M Hospital predicted among non-blacks [Volume Rate/Area] in Serum or Plasma by Creatinine-bas ed formula (MDRD) Calcium 8.2 8.5-10.1 Below low normal [facility] [Mass/volume] mg/dL Zoroastrianism in Serum or Hospital Plasma Phosphate 3.9 2.5-4.9 [facility] [Mass/volume] mg/dL Zoroastrianism in Serum or Hospital Plasma Albumin 2.1 g/dL 3.5-4.7 Below low normal [facility] [Mass/volume] Zoroastrianism in Serum or Hospital Plasma by Bromocresol purple (BCP) dye binding method ID Date Data Source [id number] 12/21/2018 04:13:05 AM EDT [facility] Name Value Range Interpretation Description Data Sup porting Code Source(s) Document(s ) Magnesium 2.1 mg/dL 1.6-2.6 [facility] - [facility] [Mass/volume] Zoroastrianism in Serum or Hospital Plasma ID Date Data Source [id number] 12/20/2018 11:46:12 PM EDT [facility] Name Value Range Interpretation Description Data Sup porting Code Source(s) Document(s ) Glucose 134 MG/DL 65-110 Above high normal [facility] [Mass/volume] Zoroastrianism in Blood by Hospital Automated test strip ID Date Data Source [id number] 12/20/2018 11:19:58 PM EDT [facility] Problem: Pneumonia: Day 1Goal: Medicatio nsOutcome: Progressing Towards GoalProblem: Non-Violent RestraintsGoal: Non-violent Restaints:Standard InterventionsOutcome: Progressing Towards GoalGoal: Non-violen t Restraints:Patient InterventionsOutcome: Progressing Towards Goal Name Value Range Interpretation Code Description Data Harriett rce(s) Supporting Document(s ) ID Date Data Source [id number] 12/20/2018 07:55:53 PM EDT [facility] Bedside and Verbal shift change report g iven to Leann Ryan RN (oncoming nurse)by Chantelle Beltran RN(offgoing nurse). Rep ort given with SBAR, Kardex, Intake/Output, MAR and RecentResults. Name Value Range Interpretation Code Description Data Harriett rce(s) Supporting Document(s ) ID Date Data Source [id number] 12/20/2018 06:28:54 PM EDT [facility] ID Progress Note12/20/2018Subjective:Patie nt is non verbal,unable to provide any historyAfebrile, WBC down to 9.2S/p left pigtail catheter insertion for pleural effusion 12/19/18, gram stain withfew wbc, culture pendingObjective:Vitals:Patient Vitals for the past 24 hrs: BP Temp Puls e Resp SpO2 Kuxmze55/07/19 0722 (!) 131/96 99.3 F (37.4 C) [...] placed on the t able in the roapg-flrz-wbvz decubitus position.CT scanning was performed locat ion [...] location.Attempts were made to pass an 8 Emirati pigtail catheter throug h this location.However, patient [...] effusion. Plan: 1. Continue IV zosyn2. Follow cultures.MRAICEL Gonzalezeptember 7 AM Name Value Range Interpretation Code Description Data Harriett rce(s) Supporting Document(s ) ID Date Data Source [id number] 12/20/2018 06:18:16 PM EDT [facility] Name Value Range Interpretation Description Data Sup porting Code Source(s) Document(s ) Glucose 143 MG/DL 65-110 Above high normal [facility] [Mass/volume] Zoroastrianism in Blood by Hospital Automated test strip ID Date Data Source [id number] 12/20/2018 12:45:48 PM EDT [facility] PULMONARY/ CCM- Consult NotePatient: Ivelisse Carlin Sex: male DOA: 12/12/2018Date of : 1 Age: 68 y.o. LOS: LOS: 8 daysHPI: kassie Carlin is a 68 y.o. male who has been seen for respfailure.pneumonia,recently discharge d..Patient with MR,aspiration pneumonia,dysphagia,s/p peg placement,CO PD,pulmonaryembolism,schizophrenia was transferred from the intermediate for fe jjw081.3,shortness of breath and tachycardia.Patient is non verbal,unable [...] solution 200 mg, 2 mL,Nebulization, BID RT, iMli Hills DO, 200 mg at 12/20/18 0750 [...] (DEPAKENE) 250 mg/5 mL (5 mL) oral sfmiifhd651 mg, 750 mg, Per G Tube, BID, [...] Output:Date 12/19/18699 - 12/20/1865812/20/18699 - 12/21/18 0659Shift 9527-1933 7294-7517 24 Hour Total 0420-4041 6644-4115 24 Hour TotalINTAKENG/GT 570 7 40 1310 [...] CO2 68*PO2 76*HCO3 40*Cultures:No results found for: LongaccessLab ResultsComponent Valu e Date/Time Culture result: NO [...] images were obtained and reviewed on a [employer] d viewingworkstation and directly supervised. Contrast: A [...] Supporting Document(s ) ID Date Data Source [id number] 12/20/2018 12:11:02 PM EDT [facility] Cpt done with percussor as per Md order. Pt sandhya well , no resp distress noted.[place]naware. Name Value Range Interpretation Code Description Data Harriett rce(s) Supporting Document(s ) ID Date Data Source [id number] 12/20/2018 12:42:59 PM EDT [facility] Name Value Range Interpretation Description Data Sup porting Code Source(s) Document(s ) Glucose 111 MG/DL 65-110 Above high normal [facility] [Mass/volume] Zoroastrianism in Blood by Hospital Automated test strip ID Date Data Source [id number] 12/20/2018 09:54:24 AM EDT [facility] Progress NOTENAME: Evelio JohnsoninDOB : 1950MRN: [id number]/Time: 12/20/2018 9:15 AMHISTORY OF PRESENT ILLNE SS:Evelio is a 68 y.o. male who presents from [facility] with medical history ofDysphag ia with recent [...] CT chest , bilateral Pleural effusion8. Restart sea captain medications via peg Covering for Admitting Physician: Mireya Maagña December 20, 2018 9:15 AM Name Value Range Interpretation Code Description Data Harriett rce(s) Supporting Document(s ) ID Date Data Source [id number] 12/20/2018 07:40:33 AM EDT [facility] Bedside and Verbal shift change report carol pham to CHANTELLE RN (oncoming nurse) byJerry Berkowitz, NANCY(offgoing nurse). Report give n with SBAR, Kardex, Intake/Output, MAR and RecentResults. Name Value Range Interpretation Code Description Data Harriett rce(s) Supporting Document(s ) ID Date Data Source [id number] 12/20/2018 06:08:58 AM EDT [facility] Name Value Range Interpretation Description Data Sup porting Code Source(s) Document(s ) Glucose 110 MG/DL 65-110 [facility] [Mass/volume] Zoroastrianism in Blood by Hospital Automated test strip ID Date Data Source [id number] 12/20/2018 06:08:21 AM EDT [facility] Name Value Range Interpretation Description Data Sup porting Code Source(s) Document(s ) Leukocytes 9.2 K/uL 4.8-10.6 [facility] - [#/volume] in Good Blood by Zoroastrianism Automated count Hospital Erythrocytes 3.21 4.70-6.0 Below low normal [facility] - [#/volume] in M/uL 0 Good Blood by Zoroastrianism Automated count Hospital Hemoglobin 10.6 14.0-18. Below low normal [facility] - [Mass/volume] in g/dL 0 [facility] Blood [facility] Hematocrit 33.3 % 42.0-52. Below low normal [facility] - [Volume 0 Good Fraction] of Zoroastrianism Blood by Hospital Automated count Erythrocyte mean 103.7 FL 81.0-94. Above high normal [facility] - corpuscular 0 Good volume [Entitic Zoroastrianism volume] by Hospital Automated count Erythrocyte mean 33.0 PG 27.0-35. [facility] - corpuscular 0 Good hemoglobin Zoroastrianism [Entitic mass] Hospital by Automated count Erythrocyte mean 31.8 30.7-37. [facility] - corpuscular g/dL 3 Good hemoglobin [facility] [Mass/volume] by Automated count Erythrocyte 17.1 % 11.5-14. Above high normal [facility] - distribution 0 Good width [Ratio] by Zoroastrianism Automated count [facility] Platelets 254 K/uL 130-400 [facility] - [#/volume] in [facility] Blood by [facility]oroastrianism Automated count [facility] Platelet mean 9.4 FL 9.2-11.8 [facility] - volume [Entitic Good volume] in Blood [facility] by Automated Hospital count Segmented 79 % 48.0-72. Above high normal [facility] - neutrophils/100 [address] Good [address] [facility] Lymphocytes/100 10 % 18.0-40. Below low normal [facility] - leukocytes in 0 [facility] Blood [facility] Monocytes/100 6 % 2.0-12.0 [facility] - leukocytes in [facility] Blood [facility] Eosinophils/100 0 % 0.0-7.0 [facility] - leukocytes in [facility] Blood [facility] Basophils/100 0 % 0.0-3.0 [facility] - leukocytes in [facility] Blood [facility] Segmented 7.2 K/UL 1.5-6.6 Above high normal [facility] - neutrophils Good [#/volume] in [facility] Lymphocytes 0.9 K/UL 1.5-3.5 Below low normal [facility] - [#/volume] in [facility] Monocytes 0.6 K/UL 0.0-1.0 [facility] - [#/volume] in [facility] Eosinophils 0.0 K/UL 0.0-0.7 [facility] - [#/volume] in [facility] Basophils 0.0 K/UL 0.0-0.1 [facility] - [#/volume] in [facility] Differential [facility] - cell count [facility] Immature 5 % 0.0-2.0 Above high normal [facility] - granulocytes/100 [facility] leukocytes in [facility] by [facility] Automated count ID Date Data Source [id number] 12/20/2018 05:39:56 AM EDT [facility] Name Value Range Interpretation Description Data Sup porting Code Source(s) Document(s ) Sodium 149 136-145 Above high normal [facility] - Good [Moles/volume] mmol/L [facility]astrianism in Serum or Hospital Plasma Potassium 4.5 3.5-5.1 [facility] - Good [Moles/volume] mmol/L [facility]ism in Serum or Hospital Plasma Chloride 102 98-107 [facility] - Good [Moles/volume] mmol/L [facility] in Serum or Hospital Plasma Carbon 36 21-32 Above high normal [facility] - Good dioxide, total mmol/L [facility]rianism [Moles/volume] Hospital in Serum or Plasma Anion gap in 16 10-20 [facility] - Good Serum or mmol/L [facility] Plasma Hospital Glucose 123 74-106 Above high normal [facility] - Good [Mass/volume] mg/dL Z[facility]astrianism in Serum or Hospital Plasma Urea nitrogen 23 mg/dL 7-18 Above high normal [facility] - Good [Mass/volume] Zoroastrianism in Serum or Hospital Plasma Creatinine 0.48 0.70-1.3 Below low normal [facility] - Good [Mass/volume] mg/dL 0 [facility]ism in Serum or Hospital Plasma Glomerular >60 [facility] - Good filtration Zoroastrianism rate/1.73 sq M Hospital predicted among blacks [Volume Rate/Area] in Serum or Plasma by Creatinine-bas ed formula (MDRD) Glomerular >60 [facility] - Good filtration Zoroastrianism rate/1.73 sq M Hospital predicted among non-blacks [Volume Rate/Area] in Serum or Plasma by Creatinine-bas ed formula (MDRD) Calcium 8.7 8.5-10.1 [facility] - Good [Mass/volume] mg/dL [facility]astrianism in Serum or Hospital Plasma Phosphate 3.9 2.5-4.9 [facility] - Good [Mass/volume] mg/dL [facility]astrianism in Serum or Hospital Plasma Albumin 2.2 g/dL 3.5-4.7 Below low normal [facility] - Good [Mass/volume] Zoroastrianism in Serum or Hospital Plasma by Bromocresol purple (BCP) dye binding method ID Date Data Source [id number] 12/20/2018 05:39:56 AM EDT [facility] Name Value Range Interpretation Description Data Sup porting Code Source(s) Document(s ) Magnesium 2.7 mg/dL 1.6-2.6 Above high normal [facility] - Good [Mass/volume] Zoroastrianism in Serum or Hospital Plasma ID Date Data Source [id number] 12/19/2018 11:36:42 PM EDT [facility] Name Value Range Interpretation Description Data Sup porting Code Source(s) Document(s ) Glucose 127 MG/DL 65-110 Above high normal [facility] - Good [Mass/volume] Zoroastrianism in Blood by [facility] Automated test strip ID Date Data Source [id number] 12/19/2018 07:17:12 PM EDT [facility] Bedside and Verbal shift change report carol pham to Jerry Berkowitz (oncoming nurse) Alexandria BARRAZA RN (offgoing nurse). Report included the following informationSBAR, Kardex, Intake/Output, MAR and Recent Results. Name Value Range Interpretation Code Description Data Harriett rce(s) Supporting Document(s ) ID Date Data Source [id number] 12/19/2018 04:55:28 PM EDT [facility] Name Value Range Interpretation Description Data Sup porting Code Source(s) Document(s ) Glucose 129 MG/DL 65-110 Above high normal [facility] - Good [Mass/volume] Zoroastrianism in Blood by [facility] Automated test strip ID Date Data Source [id number] 12/19/2018 01:57:17 PM EDT [facility] ID Progress Note12/19/2018Subjective:Shauna nt is non verbal,unable to provide any historyAfebrile .S/p left pigtail cathet er insertion for pleural effusion.Objective:Vitals:Patient Vitals for the past 24 hrs: BP Temp Pulse Resp SpO2 Htezsd73/06/19 1247 150/88 - 74 24 94 % [...] was placed on the table in the caikt-boin-tqtw decubitus position.CT sc anning was performed location [...] location.Attempts were made to pass an 8 Emir[place] pigtail catheter through this location.However, patient continuous [...] Supporting Document(s ) ID Date Data Source [id number] 12/23/2018 03:51:00 PM EDT [facility] Final Cytology ReportName: LINA CARLIN ANUELAccession Number: [id number] Date: 12/19/2018MRN: [id number] of : 1950 (Age: 68) MLocation: 3N [...] flu id that is entirely sent to cytology.[facility]/12/22/2018 Name Value Range Interpretation Code Description Data Harriett rce(s) Supporting Document(s ) ID Date Data Source [id number] 12/19/2018 12:58:14 PM EDT [facility] History:Pleural effusion.PROCEDURE:After being informed of the risks, benefits, and potential alternativesprocedure informed consent was obtained.The patient was placed on the table in the ueacv-lfkr-sgtn decu bitus position.CT scanning was performed location was chosen over the left flank. However,dueto the significant amount of patient motion and breathing motion was difficultto accurately assess a location for percutaneous paracentesis. Therefore, th iswas performed manually.After the chosen region was prepped and draped in the [facility] sterile fashionusing maximum sterile barrier technique a lidocaine needle was placed in theskin. This appeared to be in good position. Lidocaine was then used t oanesthetize the skin and subcutaneous tissues in this location.Attempts were m stephanie to pass an 8 Emirati pigtail catheter through this location.However, patient c [...] Supporting Document(s ) ID Date Data Source [id number] 12/19/2018 12:54:34 PM EDT [facility] PT received in CT scan for [...] Post scan completed: VSS. [facility] via bedaccompanied by transport and Rn. Report to 3N Rn.Skater Pigtail Catheter:8 Emir[place] 25cmRef: [id number]: [id number]: 10/31/2023 Name Value Range Interpretation Code Description Data Harriett rce(s) Supporting Document(s ) ID Date Data Source [id number] 12/23/2018 01:17:43 PM EDT [facility] Name Value Range Interpretation Code Description Data Harriett rce(s) Supporting Document(s ) Service [facility] FEWWBC'SNO ORGANISMS SEEN Bacteria identified in Unspecified specimen [facility] by Culture ID Date Data Source [id number] 12/24/2018 02:21:54 PM EDT [facility] Name Value Range Interpretation Description Data Sup porting Code Source(s) Document(s ) Service comment [facility] Bacteria [facility] identified in [facility] Unspecified Hospital specimen by Culture ID Date Data Source [id number] 12/19/2018 03:35:34 PM EDT [facility] Name Value Range Interpretation Description Data Sup porting Code Source(s) Document(s ) Specimen source [facility] [Identifier] [facility] Color of Body [facility] Appearance of [facility] Erythrocytes 9000 /cu [facility] - Good [#/volume] in [facility] Nucleated cells 132 /cu [facility] - Good [#/volume] in [facility] Lymphocytes/100 66 % [facility] - [facility] leukocytes in [facility] Monocytes/100 2 % [facility] leukocytes in [facility] Neutrophils/100 32 % [facility] - [facility] leukocytes in [facility] NOLOINC [facility] ID Date Data Source [id number] 12/19/2018 12:21:44 PM EDT [facility] Date of Procedure: 12/19/2018Procedure: CT guided left thoracentesisPreoperative Diagnosis: pleural effusionPostoperative Diagnosis: sameOperator: Samir Renteria MDAnesthesia: LocalEstimated Blood Loss: MinimalSpecimens: to labFindings: 8 fr pigtail placed in left chest, patient co nstant motion limitedprocedureComplications: NoneImplants: Radu Medrano Re port to Follow. Name Value Range Interpretation Code Description Data Harriett rce(s) Supporting Document(s ) ID Date Data Source [id number] 12/19/2018 11:01:27 AM EDT [facility] ID Progress Note12/19/2018Subjective:Shauna nt is non verbal,unable to provide any historyAfebrile .Objective:Vitals:Patien t Vitals for the past 24 hrs: BP Temp Pulse Resp SpO2 Wmwdtw40/06/19 0811 - - - - 95 % [...] Supporting Document(s ) ID Date Data Source [id number] 12/19/2018 09:36:38 AM EDT [facility] Progress NOTENAME: Evelio AbrahambeinDOB : 1950MRN: [id number]/Time: 12/19/2018 9:15 AMHISTORY OF PRESENT ILLNE SS:Evelio is a 68 y.o. male who presents from [facility] with medical history ofDysphag ia with recent [...] CT chest , bilateral Pleural effusion8. Restart sea captain medications via peg Covering for Admitting Physician: Mireya Magaña December 19, 2018 9:15 AM Name Value Range Interpretation Code Description Data Harriett rce(s) Supporting Document(s ) ID Date Data Source [id number] 12/19/2018 07:43:16 AM EDT [facility] Bedside and Verbal shift change report g iven to MICHAELA PITTS (oncoming nurse) Jewel Berkowitz RN(offgoing nurse). Report give n with SBAR, Kardex, Intake/Output, MAR and RecentResults. Name Value Range Interpretation Code Description Data Harriett rce(s) Supporting Document(s ) ID Date Data Source [id number] 12/19/2018 08:31:54 AM EDT [facility] Name Value Range Interpretation Description Data Sup porting Code Source(s) Document(s ) Glucose 116 MG/DL 65-110 Above high normal [facility] - Good [Mass/volume] Zoroastrianism in Blood by [facility] Automated test strip ID Date Data Source [id number] 12/19/2018 07:14:59 AM EDT [facility] Name Value Range Interpretation Description Data Sup porting Code Source(s) Document(s ) Glucose 133 MG/DL 65-110 Above high normal [facility] - Good [Mass/volume] Zoroastrianism in Blood by [facility] Automated test strip ID Date Data Source [id number] 12/19/2018 04:50:52 AM EDT [facility] Name Value Range Interpretation Description Data Sup porting Code Source(s) Document(s ) Sodium 142 136-145 [facility] - Good [Moles/volume] mmol/L [facility]ism in Serum or Hospital Plasma Potassium 4.4 3.5-5.1 [facility] - Good [Moles/volume] mmol/L [facility]ism in Serum or Hospital Plasma Chloride 100 98-107 [facility] - [facility] [Moles/volume] mmol/L [facility]ism in Serum or Hospital Plasma Carbon 39 21-32 Above high normal [facility] - Good dioxide, total mmol/L [facility]ism [Moles/volume] Hospital in Serum or Plasma Anion gap in 7 mmol/L 10-20 Below low normal [facility] - Go od Serum or [facility] Plasma Hospital Glucose 125 74-106 Above high normal [facility] - Good [Mass/volume] mg/dL [facility]oroastrianism in Serum or Hospital Plasma Urea nitrogen 18 mg/dL 7-18 [facility] - Good [Mass/volume] Zoroastrianism in Serum or Hospital Plasma Creatinine 0.40 0.70-1.3 Below low normal [facility] - Good [Mass/volume] mg/dL 0 [facility]rianism in Serum or Hospital Plasma Glomerular >60 [facility] - Good filtration Zoroastrianism rate/1.73 sq M Hospital predicted among blacks [Volume Rate/Area] in Serum or Plasma by Creatinine-bas ed formula (MDRD) Glomerular >60 [facility] - Good filtration Zoroastrianism rate/1.73 sq M Hospital predicted among non-blacks [Volume Rate/Area] in Serum or Plasma by Creatinine-bas ed formula (MDRD) Calcium 8.8 8.5-10.1 [facility] - Good [Mass/volume] mg/dL [facility]astrianism in Serum or Hospital Plasma Phosphate 3.6 2.5-4.9 [facility] - Good [Mass/volume] mg/dL [facility]astrianism in Serum or Hospital Plasma Albumin 2.1 g/dL 3.5-4.7 Below low normal [facility] - Good [Mass/volume] Zoroastrianism in Serum or Hospital Plasma by Bromocresol purple (BCP) dye binding method ID Date Data Source [id number] 12/19/2018 04:50:52 AM EDT [facility] Value Range Interpretation Description Data Sup porting Code Source(s) Document(s ) Magnesium 2.1 mg/dL 1.6-2.6 [facility] - [facility] [Mass/volume] Zoroastrianism in Serum or Hospital Plasma ID Date Data Source [id number] 12/19/2018 04:40:37 AM EDT [facility] Value Range Interpretation Description Data Sup porting Code Source(s) Document(s ) Prothrombin 11.4 sec 9.4-11.1 Above high normal [facility] - Go od time (PT) [facility] INR in 1.1 0.8-1.2 [facility] - Good Platelet poor Zoroastrianism plasma by Hospital Coagulation assay ID Date Data Source [id number] 12/19/2018 02:25:45 AM EDT [facility] Problem: Pneumonia: Day 1Goal: Off Pathw [...] Supporting Document(s ) ID Date Data Source [id number] 12/19/2018 02:16:30 AM EDT [facility] Name Value Range Interpretation Description Data Sup porting Code Source(s) Document(s ) Glucose 150 MG/DL 65-110 Above high normal [facility] [Mass/volume] Zoroastrianism in Blood by Hospital Automated test strip ID Date Data Source [id number] 12/18/2018 07:27:41 PM EDT [facility] Bedside and Verbal shift change report g iven to Jerry Berkowitz RN (oncomingnurse) by Aaliyah Dyson RN (offgoing nurse). Report given with SBAR,Kardex, Intake/Output, MAR and Recent Results. Name Value Range Interpretation Code Description Data [facility] rce(s) Supporting Document(s ) ID Date Data Source [id number] 12/18/2018 07:14:42 PM EDT [facility] Pt placed on venti mask due to pulling n vivian cannula off. Desats on occasion andin no resp distress today. Pulse on and patien t pulls at that as well. Restingcomfortably on 35 % venti mask and vitals stable at this time. Bipap stby andnight RT Sinu Duke aware. Name Value Range Interpretation Code Description [facility] Document(s ) ID Date Data Source [id number] 12/18/2018 04:01:01 PM EDT [facility] Patient pulling at medical equipment, tu bes and lines multiple times despiteredirection and several other int erventions. SpO2 80% on room air with worseningrespiratory distress. Placed on ventimask. Orders received for bilateral handmitts to prevent patient interfering with medical equipment. Name Value Range Interpretation Code Description Data [facility] Supporting Document(s ) ID Date Data Source [id number] 12/18/2018 03:42:03 PM EDT [facility] PULMONARY/ CCM- Consult NotePatient: Ivelisse Carlin Sex: male DOA: 12/12/2018Date of : 1 Age: 68 y.o. LOS: LOS: 6 daysHPI: kassie Carlin is a 68 y.o. male who has been seen for respfailure.pneumonia,recently discharge d..Patient with MR,aspiration pneumonia,dysphagia,s/p peg placement,CO PD,pulmonaryembolism,schizophrenia was transferred from the intermediate for fe rwk332.3,shortness of breath and tachycardia.Patient is non verbal,unable [...] (DEPAKENE) 250 mg/5 mL (5 mL) oral duffailm368 mg, 750 mg, Per G Tube, BID, [...] Output:Date 12/17/18699 - 12/18/1865812/18/18699 - 10/01 0659Shift [id number] 4148-9154 24 Hour Total 7569-2010 5325-7980 24 Hour TotalI NTAKENG/GT 1000 1000 530 [...] Supporting Document(s ) ID Date Data Source [id number] 12/18/2018 02:54:28 PM EDT [facility] YUAN started - placed into chart. Name Value Range Interpretation Code Description Data Harriett rce(s) Supporting Document(s ) ID Date Data Source [id number] 12/18/2018 02:04:57 PM EDT [facility] Portable chest x-ray.PRIOR EXAM: 12/13/19 19 [...] Supporting Document(s ) ID Date Data Source [id number] 12/18/2018 02:12:16 PM EDT [facility] Name Value Range Interpretation Description Data Sup porting Code Source(s) Document(s ) Prothrombin 11.2 sec 9.4-11.1 Above high normal [facility] - Go od time (PT) [facility] INR in 1.1 0.8-1.2 [facility] Platelet poor Zoroastrianism plasma by [facility] Coagulation assay ID Date Data Source [id number] 12/18/2018 01:46:49 PM EDT [facility] - [facility] Name Value Range Interpretation Description Data Sup porting Code Source(s) Document(s ) Glucose 170 MG/DL 65-110 Above high normal [facility] - Good [Mass/volume] Zoroastrianism in Blood by [facility] Automated test strip ID Date Data Source [id number] 12/18/2018 01:09:32 PM EDT [facility] History:Arm claudication.FINDINGS:CTA of the left upper extremity was performed helically from level of theshoulder thro ugh the fingers after the intravenous administration of 119 cc ofIsovue. Sagit krystian, coronal, and 3-D reconstructed images obtained on [facility] workstation ar e submitted. No prior studies [...] Name Value Range Interpretation Code Description Data [facility] rce(s) Supporting Document(s ) ID Date Data Source [id number] 12/18/2018 12:33:05 PM EDT [facility] Witnessed telephone consent from Dr. Ata bradshaw from Dr. Sandro Ovalle (POA son in law)for CT guided left sided thoracentesis. Two mason se consent signed and obtainedvia telephone. Name Value Range Interpretation Code Description Data Harriett rce(s) Supporting Document(s ) ID Date Data Source [id number] 12/18/2018 11:32:37 AM EDT [facility] Patient's condition, medications, feedin gs and ability to give consent reviewedwith Janelle Key RN.Consent to be obtained, feeding s ad heparin to be held at midnight and to reviewBIPAP stats in AM for CT procedure on 12/18 2018 Name Value Range Interpretation Code Description Data Harriett rce(s) Supporting Document(s ) ID Date Data Source [id number] 12/18/2018 10:30:39 AM EDT [facility] Progress NOTENAME: Evelio AbrahambeinDOB : 1950MRN: [id number]/Time: 12/18/2018 9:15 AMHISTORY OF PRESENT ILLNE SS:Evelio is a 68 y.o. male who presents from [facility] with medical history ofDysphag ia with recent [...] TO AND READ BACK BY Performed by [id number] SE, POC Collection Time: 12/17/18 6:36 PMResult Value Ref Range Glucose, [facility] 109 65 - 110 MG/DLGLUCOSE, POC [...] up6. ID follow up7. CT chest8. Restart sea captain medications via peg Covering for Admitting Physician: Oralia Frankel MD December 18, 2018 9:15 AM Name Value Range Interpretation Code Description Data Harriett rce(s) Supporting Document(s ) ID Date Data Source [id number] 12/18/2018 10:02:09 AM EDT [facility] GI dictatedRequested possible conversion of G to J tube to make aspiration less likely,less severe.Technically, this is reasonable easy to do. The major issue is whether the Jtube will remain in [facility] chr onically, or if it is pulled on, or pt vomits it mayend up in stomach.The proper 'kit' has been ordered, tentatively scheduled for Saturday [david toallow pulm improvement][place] n[place] Name Value Range Interpretation Code Description Data [facility] rce(s) Supporting Document(s ) ID Date Data Source [id number] 12/18/2018 10:01:38 AM EDT [facility] Spoke with Dr. Frankel and Dr. Joy finley patients CT chest results withworsening B/L pleural effusions. Orders received p er for CT guided pigtailcath insertion for left sided thoracentesis. Patient remain s tachypneic at restwith rhonchi throughout lung barron O2 @ 3L via NC SpO2 88-90%. Name Value Range Interpretation Code Description Data [facility] rce(s) Supporting Document(s ) ID Date Data Source [id number] 12/18/2018 08:29:48 AM EDT [facility] Bedside and Verbal shift change report carol Fischer, RN (oncoming nurse) byYuki Alonzo, NANCY(offgoing nurse). Report given with SBAR, Kardex, Intake/Output, MAR and RecentResults. Name Value Range Interpretation Code Description Data [facility] rce(s) Supporting Document(s ) ID Date Data Source [id number] 12/18/2018 07:20:54 AM EDT [facility] Reviewed BIPAP settings, alarms and skin adhesive With next shift RT Hoa. Name Value Range Interpretation Code Description Data [facility] rce(s) Supporting Document(s ) ID Date Data Source [id number] 12/18/2018 05:56:21 AM EDT [facility] Name Value Range Interpretation Description Data Sup porting Code Source(s) Document(s ) Glucose 172 MG/DL 65-110 Above high normal [facility] [Mass/volume] Zoroastrianism in Blood by Hospital Automated test strip ID Date Data Source [id number] 12/18/2018 04:50:00 AM EDT [facility] Referring Physician: KRYSTIAN MONAEPatient Name: EVELIO [...] Gillette MD12/18/2018 04:49 ESTM.D. Please call Imaging Canal Structure Operator [phone] withquestions.This report was electronically signed by:Kamran tran MD12/18/2018 04:50 AM Signing date/time: 12/18/2018 4:50 AMSigned by: KAMRAN DUNN Name Value Range Interpretation Code Description Data Harriett rce(s) Supporting Document(s ) ID Date Data Source [id number] 12/18/2018 06:02:45 AM EDT [facility] Name Value Range Interpretation Description Data Sup porting Code Source(s) Document(s ) Sodium 140 136-145 [facility] - [facility] [Moles/volume] mmol/L [facility] in Serum or Hospital Plasma Potassium 4.5 3.5-5.1 [facility] - Good [Moles/volume] mmol/L [facility]ism in Serum or Hospital Plasma Chloride 100 98-107 [facility] - Good [Moles/volume] mmol/L [facility]ism in Serum or Hospital Plasma Carbon 34 21-32 Above high normal [facility] - Good dioxide, total mmol/L [facility] [Moles/volume] Hospital in Serum or Plasma Anion gap in 11 10-20 [facility] - Good Serum or mmol/L [facility] Plasma Hospital Glucose 140 74-106 Above high normal [facility] - [facility] [Mass/volume] mg/dL [facility]astrianism in Serum or Hospital Plasma Urea nitrogen 17 mg/dL 7-18 [facility] - [facility] [Mass/volume] Zoroastrianism in Serum or Hospital Plasma Creatinine 0.40 0.70-1.3 Below low normal [facility] - Good [Mass/volume] mg/dL 0 [facility]astrianism in Serum or Hospital Plasma Glomerular >60 [facility] - Good filtration Z[facility]astrianism rate/1.73 sq M Hospital predicted among blacks [Volume Rate/Area] in Serum or Plasma by Creatinine-bas ed formula (MDRD) Glomerular >60 [facility] - Good filtration Z[facility]astrianism rate/1.73 sq M Hospital predicted among non-blacks [Volume Rate/Area] in Serum or Plasma by Creatinine-bas ed formula (MDRD) Calcium 9.0 8.5-10.1 [facility] - Good [Mass/volume] mg/dL [facility]ism in Serum or Hospital Plasma Phosphate 3.8 2.5-4.9 [facility] - [facility] [Mass/volume] mg/dL [facility]ism in Serum or Hospital Plasma Albumin 2.2 g/dL 3.5-4.7 Below low normal [facility] - [facility] [Mass/volume] Zoroastrianism in Serum or Hospital Plasma by Bromocresol purple (BCP) dye binding method ID Date Data Source [id number] 12/18/2018 06:02:45 AM EDT [facility] Name Value Range Interpretation Description Data Sup porting Code Source(s) Document(s ) Magnesium 2.2 mg/dL 1.6-2.6 [facility] [Mass/volume] Zoroastrianism in Serum or Hospital Plasma ID Date Data Source [id number] 12/18/2018 04:20:40 AM EDT [facility] Problem: Falls - Risk ofGoal: [...] Supporting Document(s ) ID Date Data Source [id number] 12/18/2018 12:17:10 AM EDT [facility] Name Value Range Interpretation Description Data Sup porting Code Source(s) Document(s ) Glucose 141 MG/DL 65-110 Above high normal [facility] [Mass/volume] Zoroastrianism in Blood by Hospital Automated test strip ID Date Data Source [id number] 12/17/2018 11:11:18 PM EDT [facility] Spoke with Son in law, Dr. Sandro Ovalle devang t . CT questionnairecompleted. Name Value Range Interpretation Code Description Data Harriett rce(s) Supporting Document(s ) ID Date Data Source [id number] 12/17/2018 10:57:03 PM EDT [facility] 2157: Call out to Dr. Hills's [...] Supporting Document(s ) ID Date Data Source [id number] 12/17/2018 08:06:25 PM EDT [facility] Bedside and Verbal shift change report g iven to Yuki Jean RN (oncoming nurse)by Lisa White RN(offgoing nurse). Repo rt given with SBAR, Kardex, Intake/Output, MAR and RecentResults. Name Value Range Interpretation Code Description Data Harriett rce(s) Supporting Document(s ) ID Date Data Source [id number] 12/17/2018 08:05:53 PM EDT [facility] Patient noted to be lethargic with dyspn eic. Lungs bilateral rhonchi andrhales. HOB As tolerated. Dr Monae notified. New or bassem obtained. Patientplaced on Bipap at prescribed setting. Family visited and u pdated on patient'scare. NPO status maintained. Bolus feeding tolerated well . No residual. Name Value Range Interpretation Code Description Data Harriett rce(s) Supporting Document(s ) ID Date Data Source [id number] 12/17/2018 07:59:30 PM EDT [facility] Problem: Pressure Injury - Risk ofGoal: [...] Name Value Range Interpretation Code Description [facility] Supporting Document(s ) ID Date Data Source [id number] 12/17/2018 07:15:30 PM EDT [facility] Pt on Bipap PRN. Vitals stable and Pt co mfortable on Bipap at this time. ALLYVENin place. Vitals stable at this time and re ported to night RT Silvio Miller. Name Value Range Interpretation Code Description Data [facility] Supporting Document(s ) ID Date Data Source [id number] 12/17/2018 06:49:04 PM EDT [facility] Name Value Range Interpretation Description Data Sup porting Code Source(s) Document(s ) Glucose 109 MG/DL 65-110 [facility] [Mass/volume] Zoroastrianism in Blood by Hospital Automated test strip ID Date Data Source [id number] 12/17/2018 05:16:50 PM EDT [facility] Called to room for resp distress. Obtain ed ABG/s and called to read back to . Placed pt on bipap as ordered and ALLYVEN skin barrier in place onbridge of nose. No redness noted. Pt resting co mfortably and vitals stable atthis time. Name Value Range Interpretation Code Description Data Harriett rce(s) Supporting Document(s ) ID Date Data Source [id number] 12/17/2018 03:01:28 PM EDT [facility] Critical Care Progress N [facility]Krystian Monae MD., F.C.C.P.Stella Hamilton MD., F.C.C.P. [address] [place] [address] [place] [address] Name: Evelio JohnsoninDOB: 1950MRN: [id number]: 12/17/2018Subjective:Mr. Carlin is a 68 y.o. year old male who is being see n for ACUTERESPIRATORY DISTRESS . 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) Pneumoni a Psychiatric disorder Pulmonary emboli (HCC) Schizophrenia (HCC)Allergy:No Kno wn AllergiesVital Signs:Patient Vitals for the past 24 hrs: BP Temp Pulse Resp SpO2 Vijcko39/04/19 1116 (!) 122/100 97.4 F (36.3 C) [...] bedside 101 65 - 110 MG/DLABG:Recent Labs 488625TQ 7.36PCO2 56*PO2 75*HCO3 32*Recent Glucos e Results:Lab ResultsComponent Value Date/Time GLU 104 12/17/2018 03:01 AM GL UCPOC 101 12/17/2018 01:28 PM GLUCPOC 115 (H) 12/17/2018 05:55 AM GLUCPOC 105 12/17/19 19 11:57 PMCULTURES:All Micro Results Procedure Component Value Units Date/Patria e CULTURE, BLOOD [[id number]] Collected: 12/12/181939 Order Status: Completed S pecimen: Blood Updated: 12/17/18642 Special Requests: NO SPECIAL REQUESTS C ulture result: NO GROWTH 5 DAYS CULTURE, BLOOD [[id number]] Collected: 12/12/18 1 940 Order Status: Completed Specimen: Blood Updated: 12/17/18642 Special Request s: NO SPECIAL REQUESTS Culture result: NO GROWTH 5 DAYS CULTURE, URINE [[id number]] Collected: 12/12/182003 Order Status: Completed Specimen: Urine Updated: 05/03 Special Requests: NO SPECIAL REQUESTS Culture result: NO GROWTH 1 DA Y CULTURE, URINE [[id number]] Order Status: Sent Specimen: Cath UrineXR Results [...] the procedure or anatomicalre gions you entered.Example: .BSHSILASTIMGCAT[[id number]:3This example wo uld display results for the last three orders with an externalprocedure ID of [email or web address].T he patient is: [] acutely ill Risk [...] peg placement,CO PD,pulmonaryembolism,schizophrenia was transferred from the intermediate for fe pdu792.3,shortness of breath and tachycardia.Patient is non verbal,unable toprovide history.History obtained from chart review.He was started on IVcefepim e,solumedrol and given a dose of IV vancomycin as per records from [place].Hewas afebrile on arrival to the ER with [...] = 50 % REPEAT CAT SCAN OF [facility] ST R/ O ATELECTASIS RT L L [...] Supporting Document(s ) ID Date Data Source [id number] 12/17/2018 02:45:08 PM EDT [facility] Name Value Range Interpretation Description Data Sup porting Code Source(s) Document(s ) pH of Arterial 7.38 7.35-7.4 [facility] - [facility] blood 5 [facility] Carbon dioxide 68 mmHg 32-48 Above upper panic [facility] - [facility] [Partial limits Zoroastrianism pressure] in Hospital Arterial blood Oxygen 76 mmHg 83-108 Below low normal [facility] - [facility] [Partial Zoroastrianism pressure] in Hospital Arterial blood Carbon 42 19-24 Above high normal [facility] - Good dioxide, total mmol/L Zoroastrianism [Moles/volume] Hospital in Arterial blood Bicarbonate 40 21-28 Above high normal [facility] - Go od [Moles/volume] mmol/L Zoroastrianism in Arterial Hospital blood Oxygen 97 % 94-98 [facility] - [facility] saturation in [facility] Base excess in 12.0 0-3 Above high normal [facility] - Good Arterial blood mmol/L Zoroastrianism by calculation Hospital Body site [facility] Arterial [facility] - Good patency Wrist Zoroastrianism artery --pre Hospital arterial puncture NASAL O23 Respiratory rate 3 [facility] CALLED TO AND READ BACK BYDR. MONAE at 1442 by HOA SANDERS [id number] ID Date Data Source [id number] 12/17/2018 01:40:51 PM EDT [facility] Name Value Range Interpretation Description Data Sup porting Code Source(s) Document(s ) Glucose 101 MG/DL 65-110 [facility] [Mass/volume] Zoroastrianism in Blood by Hospital Automated test strip ID Date Data Source [id number] 12/17/2018 01:17:33 PM EDT [facility] Problem: Nutrition DeficitGoal: *Optimiz e nutritional [...] Supporting Document(s ) ID Date Data Source [id number] 12/17/2018 01:16:36 PM EDT [facility] NUTRITIONFollow Up NoteSubjective: RN re ports [...] and EN.Discharge Planning: EN [facility] Josianeito[facility] RD Name Value Range Interpretation Code Description Data Harriett rce(s) Supporting Document(s ) ID Date Data Source [id number] 12/17/2018 11:12:03 AM EDT [facility] ID Progress Note12/17/2018Subjective:Patie nt is non verbal,unable to provide any historyAfebrile .Blood and urine Culture s negative so far.WBC at 12.2K (pt on steriods)Objective:Vitals:Patient Vitals for the past 24 hrs: BP Temp Pulse Resp SpO2 Wcdlmu05/04/19 0739 104/64 98.1 F (36.7 C) (!) [...] Supporting Document(s ) ID Date Data Source [id number] 12/17/2018 10:47:18 AM EDT [facility] EVER bedside visit Name Value Range Interpretation Code Description Data Harriett rce(s) Supporting Document(s ) ID Date Data Source [id number] 12/17/2018 10:06:34 AM EDT [facility] Progress NOTENAME: Evelio AbrahambeinDOB : 1950MRN: [id number]/Time: 12/17/2018 9:15 AMHISTORY OF PRESENT ILLNE SS:Evelio is a 68 y.o. male who presents from [facility] with medical history ofDysphag ia with recent [...] up6. ID follow up7. CT chest8. Restart sea captain medications via peg Covering for Admitting Physician: Oralia Frankel MD Se ptember 2018 9:15 AM Name Value Range Interpretation Code Description Data Harriett rce(s) Supporting Document(s ) ID Date Data Source [id number] 12/17/2018 07:24:10 AM EDT [facility] Bedside and Verbal shift change report g iven to Lisa White, NANCY (oncomingnurse) by Yuki Alonzo RN(offgoing nurse). Re port given with SBAR, Kardex, Intake/Output, MAR and RecentResults. Name Value Range Interpretation Code Description Data Harriett rce(s) Supporting Document(s ) ID Date Data Source [id number] 12/17/2018 06:06:30 AM EDT [facility] Name Value Range Interpretation Description Data Sup porting Code Source(s) Document(s ) Glucose 115 MG/DL 65-110 Above high normal [facility] [Mass/volume] Zoroastrianism in Blood by Hospital Automated test strip ID Date Data Source [id number] 12/17/2018 05:42:36 AM EDT [facility] Name Value Range Interpretation Description Data Sup porting Code Source(s) Document(s ) Sodium 142 136-145 [facility] [Moles/volume] mmol/L Zoroastrianism in Serum or Hospital Plasma Potassium 4.3 3.5-5.1 [facility] [Moles/volume] mmol/L Zoroastrianism in Serum or Hospital Plasma Chloride 101 98-107 [facility] [Moles/volume] mmol/L Zoroastrianism in Serum or Hospital Plasma Carbon 36 21-32 Above high normal [facility] - Good dioxide, total mmol/L Zoroastrianism [Moles/volume] Hospital in Serum or Plasma Anion gap in 9 mmol/L 10-20 Below low normal [facility] - Go od Serum or Zoroastrianism Plasma Hospital Glucose 104 74-106 [facility] [Mass/volume] mg/dL Zoroastrianism in Serum or Hospital Plasma Urea nitrogen 16 mg/dL 7-18 [facility] [Mass/volume] Zoroastrianism in Serum or Hospital Plasma Creatinine 0.51 0.70-1.3 Below low normal [facility] [Mass/volume] mg/dL 0 Zoroastrianism in Serum or Hospital Plasma Glomerular >60 [facility] - Good filtration Zoroastrianism rate/1.73 sq M Hospital predicted among blacks [Volume Rate/Area] in Serum or Plasma by Creatinine-bas ed formula (MDRD) Glomerular >60 [facility] - Good filtration Zoroastrianism rate/1.73 sq M Hospital predicted among non-blacks [Volume Rate/Area] in Serum or Plasma by Creatinine-bas ed formula (MDRD) Calcium 8.9 8.5-10.1 [facility] [Mass/volume] mg/dL Zoroastrianism in Serum or Hospital Plasma Phosphate 4.3 2.5-4.9 [facility] [Mass/volume] mg/dL Zoroastrianism in Serum or Hospital Plasma Albumin 2.3 g/dL 3.5-4.7 Below low normal [facility] [Mass/volume] Zoroastrianism in Serum or Hospital Plasma by Bromocresol purple (BCP) dye binding method ID Date Data Source [id number] 12/17/2018 05:42:36 AM [facility] Name Value Range Interpretation Description Data Sup porting Code Source(s) Document(s ) Magnesium 2.4 mg/dL 1.6-2.6 [facility] [Mass/volume] Zoroastrianism in Serum or Hospital Plasma ID Date Data Source [id number] 12/17/2018 09:14:21 AM EDT [facility] Name Value Range Interpretation Description Data Sup porting Code Source(s) Document(s ) Leukocytes 12.2 4.8-10.6 Above high normal [facility] - [#/volume] in K/uL Good Blood by Zoroastrianism Automated count [facility] Erythrocytes 3.86 4.70-6.0 Below low normal [facility] - [#/volume] in M/uL 0 Good Blood by Zoroastrianism Automated count [facility] Hemoglobin 13.0 14.0-18. Below low normal [facility] - [Mass/volume] in g/dL 0 Good Blood [facility] Hematocrit 40.8 % 42.0-52. Below low normal [facility] - [Volume 0 Good Fraction] of Zoroastrianism Blood by Hospital Automated count Erythrocyte mean 105.7 FL 81.0-94. Above high normal [facility] - corpuscular 0 Good volume [Entitic Zoroastrianism volume] by Hospital Automated count Erythrocyte mean 33.7 PG 27.0-35. [facility] - corpuscular 0 Good hemoglobin Zoroastrianism [Entitic mass] Hospital by Automated count Erythrocyte mean 31.9 30.7-37. [facility] - corpuscular g/dL 3 Good hemoglobin Zoroastrianism concentration Hospital [Mass/volume] by Automated count Erythrocyte 17.0 % 11.5-14. Above high normal [facility] - distribution 0 Good width [Ratio] by Zoroastrianism Automated count Hospital Platelets 337 K/uL 130-400 [facility] - [#/volume] in Good Blood by Zoroastrianism Automated count Hospital Platelet mean 9.9 FL 9.2-11.8 [facility] - volume [Entitic Good volume] in Blood Zoroastrianism by Automated Hospital count Segmented 39 % 48-72 Below low normal [facility] - neutrophils/100 Good leukocytes in Zoroastrianism Blood by Manual Hospital count Band form 1 % <1 Above high normal [facility] - neutrophils/100 Good leukocytes in Zoroastrianism Blood by Manual Hospital count Lymphocytes/100 41 % 18-40 Above high normal [facility] - leukocytes in Good Blood by Manual Zoroastrianism count Hospital Monocytes/100 8 % 2-12 [facility] - leukocytes in Good Blood by Manual Zoroastrianism count [facility] Metamyelocytes/1 3 % 0 Above high normal [facility] - 00 leukocytes in Good Blood by Manual Zoroastrianism count Hospital Myelocytes/100 8 % 0 Above high normal [facility] - leukocytes in Good Blood by Manual Zoroastrianism count Hospital Nucleated 2.0 PER 0 Above high normal [facility] - erythrocytes/100 100 WBC Good leukocytes Zoroastrianism [Ratio] in Blood Hospital 1+ANISOCYTOSIS1+MACROCYTOSIS Platelet adequacy [Presence] in Blood by [facility] Light microscopy Differential cell count method - Blood [facility] ID Date Data Source [id number] 12/17/2018 01:58:19 AM EDT [facility]: Falls - Risk ofGoal: *Absence o f FallsDescriptionDocument Samra Fall Risk and appropriate interventions in the [facility] wsheet.Outcome: Progressing Towards GoalNote:Fall Risk Interventions:Mentati [...] Supporting Document(s ) ID Date Data Source [id number] 12/17/2018 12:21:36 AM EDT [facility] Name Value Range Interpretation Description Data Sup porting Code Source(s) Document(s ) Glucose 105 MG/DL 65-110 [facility] [Mass/volume] Zoroastrianism in Blood by Hospital Automated test strip ID Date Data Source [id number] 12/16/2018 07:12:08 PM EDT [facility] Bedside and Verbal shift change report g iven to Teresa Alonzo, RN (oncoming nurse)by Aaliyah Dyson, NANCY (offgoing nurse). Report given with SBAR, Kardex,Intake/Output, MAR and Recent Res ults. Name Value Range Interpretation Code Description Data Harriett rce(s) Supporting Document(s ) ID Date Data Source [id number] 12/16/2018 05:53:18 PM EDT [facility] Name Value Range Interpretation Description Data Sup porting Code Source(s) Document(s ) Glucose 86 MG/DL 65-110 [facility] [Mass/volume] Zoroastrianism in Blood by [facility] Automated test strip ID Date Data Source [id number] 12/16/2018 04:42:53 PM EDT [facility] ID Progress Note12/16/2018Subjective:Shauna nt is non [...] Supporting Document(s ) ID Date Data Source [id number] 12/16/2018 03:21:39 PM EDT [facility] PULMONARY/ CCM- Consult NotePatient: Ivelisse Carlin Sex: male DOA: 12/12/2018Date of : 1 Age: 68 y.o. LOS: LOS: 4 daysHPI: kassie Carlin is a 68 y.o. male who has been seen for respfailure.pneumonia,recently discharge d..Patient with MR,aspiration pneumonia,dysphagia,s/p peg placement,CO PD,pulmonaryembolism,schizophrenia was transferred from the intermediate for fe gmk873.3,shortness of breath and tachycardia.Patient is non verbal,unable toprovide history.History obtained from chart review.He was started on IVcefepim e,solumedrol and given a dose of IV vancomycin as per records from [place].Hewas afebrile on arrival to the ER with [...] QHS, Mili Hills DO, 0.5 mg at 12/15/18 2136 la moTRIgine (LaMICtal) tablet 50 mg, 50 mg, Per G Tube, BID, Mili Hills DO, 50 mg a t 12/16/18 0809 valproic acid (as sodium salt) (DEPAKENE) 250 mg/5 mL (5 mL) oral mg, 750 mg, Per G Tube, BID, [...] - 12/16/18 065 12/16/18699 - 12/17/18 0659Shift 4434-8480 4536-5090 24 Hour Total 0700-1 859 7501-6683 24 Hour TotalINTAKENG/GT 4952 590 2862 920 920 Water Flush Volume (m L) [...] 1 x 1 xShift Total(mL/kg) 250(4.3) 250(4.3)NET 2964 659 9927 920 920Weight (kg) 55.5 58 58 58 [...] Supporting Document(s ) ID Date Data Source [id number] 12/16/2018 01:58:08 PM EDT [facility] By submitting this query, we are merely seeking further clarification ofdocumentation to accuratelyreflect all conditions that you are monitoring, evaluating, treating or thatextend the hospitalization orutilize additional resources of care. Please utilize your independent clinicaljudgment whenad dressing the question(s) below.Dear Doctor MILI HILLS,The patient's Clinical In dicators include:Pt admitted [...] Supporting Document(s ) ID Date Data Source [id number] 12/16/2018 12:39:03 PM EDT [facility] Name Value Range Interpretation Description Data Sup porting Code Source(s) Document(s ) Glucose 149 MG/DL 65-110 Above high normal [facility] [Mass/volume] Zoroastrianism in Blood by Hospital Automated test strip ID Date Data Source [id number] 12/16/2018 10:34:32 AM EDT [facility] Care Management InterventionsPCP Verifie d by CM: Yes(Dr. Mili Hills)Mode of Transport at Discharge: BLSTransition of Care Consult (CM Consult): Discharge PlanningMyChart Signup: NoDischarge Dura ble Medical Equipment: NoPhysical Therapy Consult: NoOccupational Therapy Consult: NoSpeech Therapy Consult: NoCurrent Support Network: Nursing Facility([facility] )Plan discussed with Pt/Family/Caregiver: YesFreedom of Choic e Offered: YesVeteran Resource Information Provided?: RefusedDischarge LocationDis harge Placement: [facility] )As patient is non-verbal, elementary school social worker is unable to complete assessment withthe patient. During chart review, it was not ed that during last admission, thepatient's emergency contact was identified to be t he patient's sister, Michell, , not the listed individual, Brook fong, who is a staffmember at [facility]. layout worker contacted Michell, [phone] (home); , and was informed that patient's older sister, Yuliet Jim, , holds the power of vocational examiner for the patient. As per Michell, [facility], Yuliet's daughter, Joyce Ovalle, and son in law,Gaston uribe. Sandro Ovalle, ENT at [facility], , are the bestcont acts regarding patient's disposition and medical management. Social workercontact ed patient's niece, Joyce and completed assessment with her. As perTzippy, the maximo izquierdo is a long-term resident of [facility]. Prior to admission, patient has been wheelchairbound and requires comple te assistance for all ADLs. layout worker confirmedwith the niece that the dischar ge plan is for patient to return back to [facility] when stable. layout worker di scussed code status with the niece, whostates that she does not know and will need to discuss this with her spouseprior to making any commitments. layout worker encourage d geeta to have thisdiscussion with family members and to provide case management w ith a decision atthe earliest if possible. Niece verbalized understanding and agree ment. Socialworker CC linked referral to [facility] and confirmed with liaison at [facility] that patient is a long-term resident at [facility].Tentative discharge plan is to discharge patient to [facility] when medicallycleared for discharge. Case man agement to continue to follow and remainsavailable for further assistance. RICA AcevedoW12/16/201810:27 AM Name Value Range Interpretation Code Description Data Harriett rce(s) Supporting Document(s ) ID Date Data Source [id number] 12/16/2018 09:30:55 AM EDT [facility] NOTENAME: Evelio AbrahambeinDOB : 1950MRN: [id number]/Time: 12/16/2018 9:15 AMHISTORY OF PRESENT ILLNE SS:Evelio is a 68 y.o. male who presents from [facility] with medical history ofDysphag ia with recent [...] ID fo llow up7. CT chest8. Restart sea captain medications via peg Covering for Admitting Physician: Oralia Frankel MD December 16, 2018 9:15 AM Name Value Range Interpretation Code Description Data Harriett rce(s) Supporting Document(s ) ID Date Data Source [id number] 12/16/2018 07:46:56 AM EDT [facility] Progress NotePatient: Evelio Carlin Sex: male DOA: 12/12/2018Date of : 1950 Age: 68 y.o. :[id number]:Reyes Carlin is 68 y.o. male .who presented [...] nutrition f/u cu lturesnebulizers iv steroids cont sea captain medications D/W graphic editor and RN sug gest a trial of bolusTF to reduce risk of aspiration.from the continuous [place] Elizondopt2018Time: 8:21 PM Name Value Range Interpretation Code Description Data Harriett rce(s) Supporting Document(s ) ID Date Data Source [id number] 12/16/2018 07:23:07 AM EDT [facility] Bedside and Verbal shift change report g iven to Aaliyah Victor RN (oncomingnurse) by Yolie Groves RN(offgoing nurse). Report g iven with SBAR, Kardex, Intake/Output, MAR and RecentResults. Name Value Range Interpretation Code Description Data [facility] rce(s) Supporting Document(s ) ID Date Data Source [id number] 12/16/2018 06:53:51 AM EDT [facility] Name Value Range Interpretation Description Data Sup porting Code Source(s) Document(s ) Glucose 132 MG/DL 65-110 Above high normal [facility] - [facility] [Mass/volume] Zoroastrianism in Blood by [facility] Automated test strip ID Date Data Source [id number] 12/16/2018 03:58:01 AM EDT [facility] Name Value Range Interpretation Description Data Sup porting Code Source(s) Document(s ) Leukocytes 9.4 K/uL 4.8-10.6 [facility] - [#/volume] in Good Blood by Zoroastrianism Automated count Hospital Erythrocytes 3.88 4.70-6.0 Below low normal [facility] - [#/volume] in M/uL 0 Good Blood by Zoroastrianism Automated count Hospital Hemoglobin 12.6 14.0-18. Below low normal [facility] - [Mass/volume] in g/dL 0 Good Blood [facility] Hematocrit 40.7 % 42.0-52. Below low normal [facility] - [Volume 0 Good Fraction] of Zoroastrianism Blood by Hospital Automated count Erythrocyte mean 104.9 FL 81.0-94. Above high normal [facility] - corpuscular 0 Good volume [Entitic Zoroastrianism volume] by Hospital Automated count Erythrocyte mean 32.5 PG 27.0-35. [facility] - corpuscular 0 Good hemoglobin Zoroastrianism [Entitic mass] Hospital by Automated count Erythrocyte mean 31.0 30.7-37. [facility] - corpuscular g/dL 3 Good hemoglobin [facility] [Mass/volume] by Automated count Erythrocyte 16.4 % 11.5-14. Above high normal [facility] - distribution 0 Good width [Ratio] by Zoroastrianism Automated count Hospital Platelets 277 K/uL 130-400 [facility] - [#/volume] in Good Blood by [facility]oro[facility]ism Automated count Hospital Platelet mean 9.6 FL 9.2-11.8 [facility] - volume [Entitic Good volume] in Blood [facility] by Automated Hospital count Segmented 81 % 48-72 Above high normal [facility] - neutrophils/100 Good leukocytes in Zoroastrianism Blood by Manual Hospital count Band form 4 % <1 Above high normal [facility] - neutrophils/100 Good leukocytes in Zoroastrianism Blood by Manual Hospital count Lymphocytes/100 7 % 18-40 Below low normal [facility] - leukocytes in Good Blood by Manual [facility]ast[facility]ism count Hospital Monocytes/100 5 % 2-12 [facility] - leukocytes in Good Blood by Manual [facility]oroastrianism count Hospital Myelocytes/100 3 % 0 Above high normal [facility] - leukocytes in Good Blood by Manual [facility]ast[facility]ism count Hospital 1+ANISOCYTOSIS3+MACROCYTOSIS Platelet adequacy [Presence] in Blood by [facility] Light microscopy Differential cell count method - Blood [facility] ID Date Data Source [id number] 12/16/2018 03:53:39 AM EDT [facility] Name Value Range Interpretation Description Data Sup porting Code Source(s) Document(s ) Magnesium 1.9 mg/dL 1.6-2.6 [facility] - Good [Mass/volume] Zoroastrianism in Serum or Hospital Plasma ID Date Data Source [id number] 12/16/2018 03:53:39 AM EDT [facility] Name Value Range Interpretation Description Data Sup porting Code Source(s) Document(s ) Sodium 141 136-145 [facility] - Good [Moles/volume] mmol/L [facility]oroastrianism in Serum or Hospital Plasma Potassium 4.2 3.5-5.1 [facility] - Good [Moles/volume] mmol/L [facility]astrianism in Serum or Hospital Plasma Chloride 104 98-107 [facility] - Good [Moles/volume] mmol/L [facility]astrianism in Serum or Hospital Plasma Carbon 34 21-32 Above high normal [facility] - Good dioxide, total mmol/L [facility]astrianism [Moles/volume] Hospital in Serum or Plasma Anion gap in 7 mmol/L 10-20 Below low normal [facility] - Go od Serum or [facility]astrianism Plasma Hospital Glucose 105 74-106 [facility] - Good [Mass/volume] mg/dL Zoroastrianism in Serum or Hospital Plasma Urea nitrogen 14 mg/dL 7-18 [facility] - Good [Mass/volume] Zoroastrianism in Serum or Hospital Plasma Creatinine 0.40 0.70-1.3 Below low normal [facility] - Good [Mass/volume] mg/dL 0 Zoroastrianism in Serum or Hospital Plasma Glomerular >60 [facility] - Good filtration Zoroastrianism rate/1.73 sq M Hospital predicted among blacks [Volume Rate/Area] in Serum or Plasma by Creatinine-bas ed formula (MDRD) Glomerular >60 [facility] - Good filtration Zoroastrianism rate/1.73 sq M Hospital predicted among non-blacks [Volume Rate/Area] in Serum or Plasma by Creatinine-bas ed formula (MDRD) Calcium 8.4 8.5-10.1 Below low normal [facility] - Good [Mass/volume] mg/dL Zoroastrianism in Serum or Hospital Plasma Phosphate 2.9 2.5-4.9 [facility] - Good [Mass/volume] mg/dL [facility]oroastrianism in Serum or Hospital Plasma Albumin 2.1 g/dL 3.5-4.7 Below low normal [facility] - Good [Mass/volume] Zoroastrianism in Serum or Hospital Plasma by Bromocresol purple (BCP) dye binding method ID Date Data Source [id number] 12/15/2018 11:39:59 PM EDT [facility] Name Value Range Interpretation Description Data Sup porting Code Source(s) Document(s ) Glucose 95 MG/DL 65-110 [facility] - Good [Mass/volume] Zoroastrianism in Blood by Hospital Automated test strip ID Date Data Source [id number] 12/15/2018 07:30:01 PM EDT [facility] Bedside and Verbal shift change report carol pham to Yolie Groves, RN (oncoming nurse)by Lisa White RN(offgoing nurse). Repo rt given with SBAR, Kardex, Intake/Output, MAR and RecentResults. Name Value Range Interpretation Code Description Data Harriett rce(s) Supporting Document(s ) ID Date Data Source [id number] 12/15/2018 04:20:51 PM EDT [facility] Name Value Range Interpretation Description Data Sup porting Code Source(s) Document(s ) Glucose 115 MG/DL 65-110 Above high normal [facility] - Good [Mass/volume] Zoroastrianism in Blood by Hospital Automated test strip ID Date Data Source [id number] 12/15/2018 01:42:57 PM EDT [facility] ID Progress Note12/15/2018Subjective:Patie nt is non verbal,unable to provide any historyAfebrile .Cultures negative so fa r..Objective:Vitals:Patient Vitals for the past 24 hrs: BP Temp Pulse Resp PyC838/0 06/03 1103 110/60 - 68 28 97 [...] 5-10 mL 5-10 mL IntraVENous PRNLabs:Recent Labs 09/02/963530 12/14/1903WBC 5.5 8.6 8.4 11.0*HGB 10.7* 10.8* [...] Supporting Document(s ) ID Date Data Source [id number] 12/15/2018 11:49:09 AM EDT [facility] NUTRITIONBrief Note- Bolus FeedingsConsu lted per [...] Supporting Document(s ) ID Date Data Source [id number] 12/15/2018 11:27:14 AM EDT [facility] Name Value Range Interpretation Description Data Sup porting Code Source(s) Document(s ) Glucose 108 MG/DL 65-110 [facility] [Mass/volume] Zoroastrianism in Blood by Hospital Automated test strip ID Date Data Source [id number] 12/15/2018 11:12:56 AM EDT [facility] Received from CCU via bed accompany by Transport. He is alert and awake. Heis non verbal and does not not follow any comma nd Telemetry monitors SB/SR. Sgdu39-10's. Vitals stable, Peg Tube feeding tolerat ed well. No residual. Pt madecomfortable, continue to monitor. Name Value Range Interpretation Code Description Data Harriett rce(s) Supporting Document(s ) ID Date Data Source [id number] 12/15/2018 11:05:19 AM EDT [facility] TRANSFER - IN REPORT:Verbal report recei [...] Supporting Document(s ) ID Date Data Source [id number] 12/15/2018 10:20:54 AM EDT [facility] Critical Care Progress N [facility]Krystian Monae MD., F.C.C.P.Stella Hamilton MD., F.C.C.P. [address] [place] [address] [place] [address] Name: Evelio JohnsoninDOB: 1950MRN: [id number]: 12/15/2018Subjective:Mr. Carlin is a 68 y.o. year old male who is being see n for ACUTE RESPIRATORYSILURE.Evelio Carlin is a 68 y.o. male who has been seen for respfailure.pneumonia,recently discharged..Patient with MR,aspiration p neumonia,dysphagia,s/p peg placement,COPD,pulmonaryembolism,schizop hrenia was transferred from the intermediate for .3,shortness of breath and t achycardia.Patient is non verbal,unable toprovide history.History obtained from chart review.He was started on IVcefepime,solumedrol and given a dose o f IV vancomycin as per records from [place].Hewas afebrile on arrival to the ER with [...] emboli (HCC) Schizophrenia (HCC) Objective:Past Medical History:Past [facility] History:Diagnosis Date Chronic obstructive pulmonary disease (HCC) VONDA D (gastroesophageal reflux disease) Hyperparathyroidism (HCC) Mental retard ation 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) Pneumonia Psychiatric disorder Pulmona ry emboli (HCC) Schizophrenia (HCC)Allergy:No Known AllergiesVital Sig ns:Patient Vitals for the past 24 hrs: BP Temp Pulse Resp UhA80112/15/18 0900 111/58 - 66 30 98 %12/15/18 [...] O2 O2 FLOW 3 L/min Performed by [id number]:Re cent Labs 12/14/1904PH 7.36 7.38 7.40PCO2 56* 54 * 55*PO2 75* 70* 56*HCO3 32* 32* 34*Recent Glucose Results:Lab ResultsComponent Seema ue Date/Time GLU 110 (H) 12/15/2018 03:49 AM GLUCPOC 100 12/14/2018 11:59 AMCULTURES: All Micro Results Procedure Component Value Units Date/Time CULTURE, BLOOD [[id number]] Collected: 12/12/181939 Order Status: Completed Specimen: Blood Updated: 06/03 Special Requests: NO SPECIAL REQUESTS Culture result: NO GROWTH 3 DA YS CULTURE, BLOOD [[id number]] Collected: 12/12/181939 Order Status: Completed S pecimen: Blood Updated: 12/15/18 0641 Special Requests: NO SPECIAL REQUESTS C ulture result: NO GROWTH 3 DAYS CULTURE, URINE [[id number]] Collected: 12/12/18 2 004 Order Status: Completed Specimen: Urine Updated: 12/14/18 0914 Special Request s: NO SPECIAL REQUESTS Culture result: NO GROWTH 1 DAY CULTURE, URINE [[id number]] Order Status: Sent Specimen: Cath UrineXR Results [...] the procedure or anatomicalre gions you entered.Example: .BSHSILASTIMGCAT[[id number]:3This example wo uld display results for the last three orders with an externalprocedure ID of [id number] he patient is: [] acutely ill Risk [...] Supporting Document(s ) ID Date Data Source [id number] 12/15/2018 09:37:13 AM EDT [facility] TRANSFER - OUT REPORT:Verbal report give [...] Type Transparent 12/15/2018 8:00 AMHub Color/Line Status [place];Patent 12/15/2018 8:00 AMAction Taken Open ports on [...] Name Value Range Interpretation Code Description Data [facility] rce(s) Supporting Document(s ) ID Date Data Source [id number] 12/15/2018 09:35:55 AM EDT [facility] Dr. Monae to see patient, aware of montague sfer to 3N, patient remains on 3LNC. Name Value Range Interpretation Code Description Data [facility] rce(s) Supporting Document(s ) ID Date Data Source [id number] 12/15/2018 09:11:24 AM EDT [facility] Patient resting on side, non-verbal, mov ing upper extremities well, contractedlower extremities. Does not follow commands. T o be transferred to 3N. Name Value Range Interpretation Code Description Data [facility] rce(s) Supporting Document(s ) ID Date Data Source [id number] 12/15/2018 07:31:58 AM EDT [facility] Bedside and Verbal shift change report g ellynen to Ramila Strange, RN (oncoming nurse)by Chula Daniel RN (offgoing nurs e). Report included the followinginformation SBAR, Kardex, ED Summary, MAR and Recent Results. Name Value Range Interpretation Code Description Data [facility] Supporting Document(s ) ID Date Data Source [id number] 12/15/2018 06:23:40 AM EDT [facility] Name Value Range Interpretation Description Data Sup porting Code Source(s) Document(s ) pH of Arterial 7.36 7.35-7.4 [facility] - Good blood 5 [facility] Carbon dioxide 56 mmHg 32-48 Above high normal [facility] - Good [Partial Zoroastrianism pressure] in Hospital Arterial blood Oxygen 75 mmHg 83-108 Below low normal [facility] - Good [Partial Zoroastrianism pressure] in Hospital Arterial blood Carbon 33 19-24 Above high normal [facility] - Good dioxide, total mmol/L [facility]astrianism [Moles/volume] Hospital in Arterial blood Bicarbonate 32 21-28 Above high normal [facility] - Go od [Moles/volume] mmol/L [facility]rianism in Arterial Hospital blood Oxygen 97 % 94-98 [facility] - Good saturation in [facility] Base excess in 4.6 0-3 Above high normal [facility] - Good Arterial blood mmol/L Zoroastrianism by calculation Hospital Body site [facility] - [facility] NASAL O23 Service comment [id number] [facility] - [facility] ID Date Data Source [id number] 12/15/2018 06:55:06 AM EDT [facility] - [facility] Name Value Range Interpretation Description Data Sup porting Code Source(s) Document(s ) Leukocytes 5.5 K/uL 4.8-10.6 [facility] - [#/volume] in Good Blood by [facility] Automated count Hospital Erythrocytes 3.25 4.70-6.0 Below low normal [facility] - [#/volume] in M/uL 0 Good Blood by [facility] Automated count Hospital Hemoglobin 10.7 14.0-18. Below low normal [facility] - [Mass/volume] in g/dL 0 Good Blood [facility] Hematocrit 32.2 % 42.0-52. Below low normal [facility] - [Volume 0 Good Fraction] of Zoroastrianism Blood by Hospital Automated count Erythrocyte mean 99.1 FL 81.0-94. Above high normal [facility] - corpuscular 0 Good volume [Entitic Zoroastrianism volume] by Hospital Automated count Erythrocyte mean 32.9 PG 27.0-35. [facility] - corpuscular 0 Good hemoglobin Zoroastrianism [Entitic mass] Hospital by Automated count Erythrocyte mean 33.2 30.7-37. [facility] - corpuscular g/dL 3 Good hemoglobin [facility]astrianism concentration Hospital [Mass/volume] by Automated count Erythrocyte 16.2 % 11.5-14. Above high normal [facility] - distribution 0 Good width [Ratio] by Zoroastrianism Automated count Hospital Platelets 234 K/uL 130-400 [facility] - [#/volume] in Good Blood by [facility] Automated count Hospital Platelet mean 9.5 FL 9.2-11.8 [facility] - volume [Entitic Good volume] in Blood [facility]rianism by Automated Hospital count Segmented 79 % 48.0-72. Above high normal [facility] - neutrophils/100 0 Good leukocytes in Zoroastrianism Blood [facility] Lymphocytes/100 15 % 18.0-40. Below low normal [facility] - leukocytes in 0 [facility] Monocytes/100 6 % 2.0-12.0 [facility] - leukocytes in [facility] Eosinophils/100 0 % 0.0-7.0 [facility] - leukocytes in [facility] Basophils/100 0 % 0.0-3.0 [facility] - leukocytes in [facility] Segmented 4.3 K/UL 1.5-6.6 [facility] - neutrophils Good [#/volume] in [facility] Lymphocytes 0.8 K/UL 1.5-3.5 Below low normal [facility] - [#/volume] in [facility] Monocytes 0.3 K/UL 0.0-1.0 [facility] - [#/volume] in [facility] Eosinophils 0.0 K/UL 0.0-0.7 [facility] - [#/volume] in [facility] Basophils 0.0 K/UL 0.0-0.1 [facility] - [#/volume] in [facility] Differential [facility] - cell count [facility] Immature 1 % 0.0-2.0 [facility] - granulocytes/100 [facility] leukocytes in [facility] Hospital Automated count ID Date Data Source [id number] 12/15/2018 05:26:40 AM EDT [facility] Name Value Range Interpretation Description Data Sup porting Code Source(s) Document(s ) Sodium 141 136-145 [facility] - Good [Moles/volume] mmol/L Zoroastrianism in Serum or Hospital Plasma Potassium 3.9 3.5-5.1 [facility] - Good [Moles/volume] mmol/L Zoroastrianism in Serum or Hospital Plasma Chloride 106 98-107 [facility] - Good [Moles/volume] mmol/L [facility]astrianism in Serum or Hospital Plasma Carbon 30 21-32 [facility] - Good dioxide, total mmol/L Z[facility]astrianism [Moles/volume] Hospital in Serum or Plasma Anion gap in 8 mmol/L 10-20 Below low normal [facility] - Go od Serum or [facility] Hospital Glucose 110 74-106 Above high normal [facility] - Good [Mass/volume] mg/dL Zoroastrianism in Serum or Hospital Plasma Urea nitrogen 15 mg/dL 7-18 [facility] - Good [Mass/volume] Zoroastrianism in Serum or Hospital Plasma Creatinine 0.26 0.70-1.3 Below low normal [facility] - Good [Mass/volume] mg/dL 0 Zoroastrianism in Serum or Hospital Plasma Glomerular >60 [facility] - Good filtration Zoroastrianism rate/1.73 sq M Hospital predicted among blacks [Volume Rate/Area] in Serum or Plasma by Creatinine-bas ed formula (MDRD) Glomerular >60 [facility] - Good filtration Zoroastrianism rate/1.73 sq M Hospital predicted among non-blacks [Volume Rate/Area] in Serum or Plasma by Creatinine-bas ed formula (MDRD) Calcium 8.0 8.5-10.1 Below low normal [facility] - Good [Mass/volume] mg/dL Zoroastrianism in Serum or Hospital Plasma Phosphate 1.9 2.5-4.9 Below low normal [facility] - Good [Mass/volume] mg/dL Zoroastrianism in Serum or Hospital Plasma Albumin 1.9 g/dL 3.5-4.7 Below low normal [facility] - Good [Mass/volume] Zoroastrianism in Serum or Hospital Plasma by Bromocresol purple (BCP) dye binding method ID Date Data Source [id number] 12/15/2018 05:26:40 AM EDT [facility] Name Value Range Interpretation Description Data Sup porting Code Source(s) Document(s ) Magnesium 1.9 mg/dL 1.6-2.6 [facility] - Good [Mass/volume] Zoroastrianism in Serum or Hospital Plasma ID Date Data Source [id number] 12/15/2018 12:29:58 AM EDT [facility] Progress NotePatient: Evelio Carlin Sex: male DOA: 12/12/2018Date of : 1950 Age: 68 y.o. :[id number]:Reyes Carlin is 68 y.o. male who presented [...] nutrition f/u cu lturesnebulizers iv steroids cont sea captain medications [facility] telly Reinier, Americaptember 2018Time: 11:54 PM Name Value Range Interpretation Code Description Data Harriett rce(s) Supporting Document(s ) ID Date Data Source [id number] 12/14/2018 07:32:11 PM EDT [facility] Bedside and Verbal shift change report g iven to Romelia Wade RN (oncoming nurse) byVladimir Harrell RN (offgoing nurse). Report incl uded the following informationSBAR, Kardex, ED Summary, Intake/Output, MAR, Recent R esults and Cardiac RhythmNSR. Name Value Range Interpretation Code Description Data Harriett rce(s) Supporting Document(s ) ID Date Data Source [id number] 12/14/2018 01:43:26 PM EDT [facility] Problem: Pressure Injury - Risk ofGoal: [...] Supporting Document(s ) ID Date Data Source [id number] 12/14/2018 01:08:02 PM EDT [facility] Progress NoteMID-[facility] ,[facility].Krystian Monae MD., F.C.C.P.Stella Hamilton MD., F.C.C.P. [address] [place] [id number] [place] [phone]: Evelio Carlin Sex: male DOA: 12/12/2018Da te of : 1950 Age: 68 y.o. LOS: LOS: 2 daysSubjective:Mr. Gayla beltran is a 68 y.o. year old male who is being seen for Evelioblanka Dixon a 68 y.o. m fuentes who has been seen for resp failure.pneumonia,recentlydischarged..Dayanara tong with MR,aspiration pneumonia,dysphagia,s/p peg placement,CO PD,pulmonaryembolism,schizophrenia was transferred from the intermediate for fe rfx207.3,shortness of breath and tachycardia.Patient is non verbal,unable toprovide history.History obtained from chart review.He was started on IVcefepim e,solumedrol and given a dose of IV vancomycin as per records from [place].Hewas afebrile on arrival to the ER with [...] hrs : BP Temp Pulse Resp SpO2 Gvlpfq11/01/19 1200 119/61 97.1 F (36.2 C) 62 [...] O2 O2 FLOW 3 L/min Performed by [id number], POC Collection Time: 12/14/18 11:59 AMResult Value Ref Range Glucose, bedside 100 65 - 110 MG/DLABG:Recent Labs 4 0 PH 7.38 7.40PCO2 54* 55*PO2 70* 56*HCO3 32* 34*Recent Glucose Results:Lucille garcía ResultsComponent Value Date/Time GLU 84 12/14/2018 04:48 AM GLUCPOC 100 12/15/19 11:59 [email or web address] Results Procedure Component Value Units Date/Time CULTURE, URINE [[id number]] Col lected: 12/12/182003 Order Status: Completed Specimen: Urine Updated: 05/03 Special Requests: NO SPECIAL REQUESTS Culture result: NO GROWTH 1 DA Y CULTURE, BLOOD [[id number]] Collected: 12/12/18 194 Order Status: Completed S pecimen: Blood Updated: 12/14/18 0701 Special Requests: NO SPECIAL REQUESTS C ulture result: NO GROWTH 2 DAYS CULTURE, BLOOD [[id number]] Collected: 12/12/18 1 940 Order Status: Completed Specimen: Blood Updated: 12/14/18 0701 Special Request s: NO SPECIAL REQUESTS Culture result: NO GROWTH 2 DAYS CULTURE, URINE [[id number]] Order Status: Sent Specimen: Cath UrineImages:[email or web address] Chest [...] Supporting Document(s ) ID Date Data Source [id number] 12/14/2018 01:02:34 PM EDT [facility] RECOMMENDATIONS:Suggest advance Pulmocar e to goal [...] q 6 hr, Kamar dailyActive OrdersDiet 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 OAllergies: Patient has no known allergies.Labs:CMP:Lab ResultsComponent [...] or ethnic dietary needs identified [] Cultural, yarsanism and ethnic food pref erences identified and addressed [] Participated in care plan, discharge jocelyn nning/Interdisciplinary roundsAlexa R Favorito, RD Name Value Range Interpretation Code Description Data Harriett rce(s) Supporting Document(s ) ID Date Data Source [id number] 12/14/2018 12:29:38 PM EDT [facility] Name Value Range Interpretation Description Data Sup porting Code Source(s) Document(s ) Glucose 100 MG/DL 65-110 [facility] [Mass/volume] Zoroastrianism in Blood by Hospital Automated test strip ID Date Data Source [id number] 12/14/2018 10:16:06 AM EDT [facility] ADMISSION NOTENAME: Evelio Morgan B: 1950MRN: [id number]/Time: 12/13/2018 9:15 AMSubjective:CHIEF COMPLA INT: Lethargy and feverHISTORY OF PRESENT ILLNESS:Evelio is a 68 y.o. male who presents from [facility] with medical history ofDysphagia with recent admission [...] QTC Calculation (Bezet) 509 ms Calculated P [place] 62 degrees Calculated R [place] 65 degrees Calculated T [place] 66 degrees Diagnosis Sinus rhythmIVCD, consider atypical [...] O2 O2 FLOW 2 L/min Performed by [id number] ACID Manuel ection Time: 12/13/18 12:30 AMResult [...] pulmonary6 . Consult ID7. CT chest8. Restart sea captain medications via pegProphylaxis: []Loven ox []Coumadin [...] Supporting Document(s ) ID Date Data Source [id number] 12/14/2018 09:04:40 AM EDT [facility] ID Progress Note12/14/2018Subjective:Shauna nt is non verbal,unable to provide any historyAfebrile .Cultures pending..Objec tive:Vitals:Patient Vitals for the past 24 hrs: BP Temp Pulse Resp SpO2 Buiwbs4212/14 0700 115/60 - 68 25 90 % [...] Name Value Range Interpretation Code Description Data [facility] Supporting Document(s ) ID Date Data Source [id number] 12/14/2018 07:47:23 AM EDT [facility] Bedside, Verbal and Written shift change report given to Johann PITTS(oncomingnurse) by DEVYN CELAYA (offgoing nurse). Report incl uded the following informationSBAR, Kardex, Intake/Output, MAR, Accordion, Recent Re sults, Med Rec Status andCardiac Rhythm nsr. Name Value Range Interpretation Code Description Data Harriett rce(s) Supporting Document(s ) ID Date Data Source [id number] 12/14/2018 05:54:38 AM EDT [facility] Name Value Range Interpretation Description Data Sup porting Code Source(s) Document(s ) pH of Arterial 7.38 7.35-7.4 [facility] - Good blood [address] [place] [address] Carbon dioxide 54 mmHg 32-48 Above high normal [facility] - Good [Partial Zoroastrianism pressure] in Hospital Arterial blood Oxygen 70 mmHg 83-108 Below low normal [facility] - Good [Partial Zoroastrianism pressure] in Hospital Arterial blood Carbon 34 19-24 Above high normal [facility] - Good dioxide, total mmol/L [facility]ism [Moles/volume] Hospital in Arterial blood Bicarbonate 32 21-28 Above high normal [facility] - Go od [Moles/volume] mmol/L [facility]astrianism in Arterial Hospital blood Oxygen 97 % 94-98 [facility] - Good saturation in [facility]astrianism Blood Hospital Base excess in 5.3 0-3 Above high normal [facility] - Good Arterial blood mmol/L Zoroastrianism by calculation Hospital Body site [facility] - Good [facility] Arterial [facility] - Good patency Wrist Zoroastrianism artery --pre Hospital arterial puncture NASAL O23 Service comment [id number] [facility] - Good [facility] ID Date Data Source [id number] 12/14/2018 07:14:01 AM EDT [facility] Name Value Range Interpretation Description Data Sup porting Code Source(s) Document(s ) Sodium 139 136-145 [facility] - Good [Moles/volume] mmol/L Zoroastrianism in Serum or Hospital Plasma Potassium 4.2 3.5-5.1 [facility] - Good [Moles/volume] mmol/L Zoroastrianism in Serum or Hospital Plasma Chloride 102 98-107 [facility] - Good [Moles/volume] mmol/L Zoroastrianism in Serum or Hospital Plasma Carbon 33 21-32 Above high normal [facility] - Good dioxide, total mmol/L [facility]ism [Moles/volume] Hospital in Serum or Plasma Anion gap in 8 mmol/L 10-20 Below low normal [facility] - Go od Serum or Zoroastrianism Plasma Hospital Glucose 84 mg/dL 74-106 [facility] - Good [Mass/volume] Zoroastrianism in Serum or Hospital Plasma Urea nitrogen 13 mg/dL 7-18 [facility] - Good [Mass/volume] Zoroastrianism in Serum or Hospital Plasma Creatinine 0.34 0.70-1.3 Below low normal [facility] - Good [Mass/volume] mg/dL 0 Zoroastrianism in Serum or Hospital Plasma Glomerular >60 [facility] - Good filtration Zoroastrianism rate/1.73 sq M Hospital predicted among blacks [Volume Rate/Area] in Serum or Plasma by Creatinine-bas ed formula (MDRD) Glomerular >60 [facility] - Good filtration Zoroastrianism rate/1.73 sq M Hospital predicted among non-blacks [Volume Rate/Area] in Serum or Plasma by Creatinine-bas ed formula (MDRD) Calcium 8.5 8.5-10.1 [facility] - Good [Mass/volume] mg/dL Zoroastrianism in Serum or Hospital Plasma Phosphate 2.6 2.5-4.9 [facility] - Good [Mass/volume] mg/dL [facility] in Serum or Hospital Plasma Albumin 2.0 g/dL 3.5-4.7 Below low normal [facility] [Mass/volume] [facility] in Serum or Hospital Plasma by Bromocresol purple (BCP) dye binding method ID Date Data Source [id number] 12/14/2018 07:14:01 AM EDT [facility] Name Value Range Interpretation Description Data Sup porting Code Source(s) Document(s ) Magnesium 2.0 mg/dL 1.6-2.6 [facility] [Mass/volume] [facility] in Serum or Hospital Plasma ID Date Data Source [id number] 12/14/2018 07:03:46 AM EDT [facility] Name Value Range Interpretation Description Data Sup porting Code Source(s) Document(s ) Leukocytes 8.6 K/uL 4.8-10.6 [facility] - [#/volume] in Good Blood by [facility] Automated count Hospital Erythrocytes 3.29 4.70-6.0 Below low normal [facility] - [#/volume] in M/uL 0 Good Blood by [facility] Automated count Hospital Hemoglobin 10.8 14.0-18. Below low normal [facility] - [Mass/volume] in g/dL 0 [facility] Blood [facility] Hematocrit 32.6 % 42.0-52. Below low normal [facility] - [Volume 0 Good Fraction] of [facility]ism Blood by Hospital Automated count Erythrocyte mean 99.1 FL 81.0-94. Above high normal [facility] - corpuscular 0 Good volume [Entitic [facility]ism volume] by Hospital Automated count Erythrocyte mean 32.8 PG 27.0-35. [facility] - corpuscular 0 Good hemoglobin [facility] [Entitic mass] Hospital by Automated count Erythrocyte mean 33.1 30.7-37. [facility] - corpuscular g/dL 3 Good hemoglobin [facility] concentration Hospital [Mass/volume] by Automated count Erythrocyte 16.0 % 11.5-14. Above high normal [facility] - distribution 0 Good width [Ratio] by [facility] Automated count Hospital Platelets 205 K/uL 130-400 [facility] - [#/volume] in Good Blood by [facility] Automated count [facility] Platelet mean 9.6 FL 9.2-11.8 [facility] - volume [Entitic Good volume] in Blood [facility] by Automated Hospital count Segmented 85 % 48.0-72. Above high normal [facility] - neutrophils/100 [address] Good leukocytes in [facility] Lymphocytes/100 11 % 18.0-40. Below low normal [facility] - leukocytes in 0 [facility] Blood [facility] Monocytes/100 4 % 2.0-12.0 [facility] - leukocytes in [facility] Blood [facility] Eosinophils/100 0 % 0.0-7.0 [facility] - leukocytes in [facility] Blood [facility] Basophils/100 0 % 0.0-3.0 [facility] - leukocytes in [facility] Blood [facility] Segmented 7.3 K/UL 1.5-6.6 Above high normal [facility] - neutrophils Good [#/volume] in [facility] Lymphocytes 0.9 K/UL 1.5-3.5 Below low normal [facility] - [#/volume] in [facility] Monocytes 0.3 K/UL 0.0-1.0 [facility] - [#/volume] in [facility] Eosinophils 0.0 K/UL 0.0-0.7 [facility] - [#/volume] in [facility] Basophils 0.0 K/UL 0.0-0.1 [facility] - [#/volume] in [facility] Differential [facility] - cell count [facility] Immature 1 % 0.0-2.0 [facility] - granulocytes/100 [facility] leukocytes in [facility] Automated count ID Date Data Source [id number] 12/13/2018 07:06:38 PM EDT [facility] Bedside and Verbal shift change report g iven to Devyn Celaya RN (oncoming nurse)by Kathia Guardado RN (offgoing nurse). Repo rt included the following information SBAR, Kardex,Intake/Output, Recent Results, Me d Rec Status and Cardiac Rhythm NSR. Name Value Range Interpretation Code Description Data Harriett rce(s) Supporting Document(s ) ID Date Data Source [id number] 12/13/2018 06:47:48 PM EDT [facility] History:Respiratory difficulty.FINDINGS: CT scanning of the chest was performed helically from the lung apices to theupp er abdomen without intravenous contrast material. Sagittal and coronalreconstruc mikel images are submitted. Scanning was performed utilizing doselowering Nearlywedses and is compared to the prior study [...] Supporting Document(s ) ID Date Data Source [id number] 12/13/2018 01:07:19 PM EDT [facility] PULMONARY/ CCM- Consult NotePatient: Ivelisse Carlin Sex: male DOA: 12/12/2018Date of : 1 Age: 68 y.o. LOS: LOS: 1 dayHPI: Emil Carlin is a 68 y. o. male who has been seen for respfailure.pneumonia,recently discharge d..Patient with MR,aspiration pneumonia,dysphagia,s/p peg placement,CO PD,pulmonaryembolism,schizophrenia was transferred from the intermediate for fe chz307.3,shortness of breath and tachycardia.Patient is non verbal,unable toprovide history.History obtained from chart review.He was started on IVcefepim e,solumedrol and given a dose of IV vancomycin as per records from [place].Hewas afebrile on arrival to the ER with [...] 250 mg/5 mL (5 m L) oral ecaoekpi672 mg, 750 mg, Per G Tube, BID, [...] 0 12/13/1859 12/13/18 0700 - 12/14/18 0659ift [id number] 1203-9063 24 Hour To krystian [id number] 0422-9733 24 Hour TotalINTAKEI.V. 248.3(0.4) 248.3(0.2) Volume (0.9% [...] images were obtained and reviewed on a Jotvine.comate d viewingworkstation and directly supervised. Contrast: A [...] Supporting Document(s ) ID Date Data Source [id number] 12/13/2018 09:47:44 AM EDT [facility] Infectious Disease ConsultToday's Date: 12/13/2018Admit Date: 12/12/2018Subjective:Date of Consultation: December 13, 2018Refbrandon oro Physician: ReinierJustice is a 68 y.o. male who is being seen for pneumonia.Pat ient withMR,aspiration pneumonia,dysphagia,s/p peg placement,CO PD,pulmonaryembolism,schizophrenia was transferred from the intermediate for fe adf955.3,shortness of breath and tachycardia.Patient is non verbal,unable toprovide history.History obtained from chart review.He was started on IVcefepim e,solumedrol and given a dose of IV vancomycin as per records from [place].Hewas afebrile on arrival to the ER with elevated lactic acid of 5.3 with lowoxygen and el evated CO2 level.Patient Active Problem ListDiagnosis Code Paraesophageal hiata l hernia K44.9 COPD (chronic obstructive pulmonary disease) ([facility]) J44.9 Acute re spiratory distress R06.03 Pneumonia J18.9 COPD exacerbation ([facility]) J44.1 Sepsis du e to undetermined organism ([facility]) A41.9Past Medical History:Diagnosis Date Chronic obstructive pulmonary disease (HCC) GERD (gastroesophageal reflux disease) Hyper parathyroidism ([facility]) Mental retardation Parkinsonism due to drug ([facility]) Pneumoni a Psychiatric disorder Pulmonary emboli (HCC) Schizophrenia ([facility])History review ed. No pertinent family history.Social [...] QTC Calculation (Bezet) 509 ms Calculated P [place] 62 degrees Calculated R [place] 65 d egrees Calculated T [place] 66 degrees Diagnosis Sinus rhythmIVCD, consider atypical [...] O2 O2 FLOW 2 L/min Performed by [id number] ACID Collection Time: 12/13/18 12:30 AMResult Value [...] Name Value Range Interpretation Code Description Data [facility] rce(s) Supporting Document(s ) ID Date Data Source [id number] 12/13/2018 07:50:37 AM EDT [facility] Bedside, Verbal and Written shift change report given to kathia pitts(oncomingnurse) by DEVYN CELAYA (offgoing nurse). Report i ncluded the following informationSBAR, Kardex, Intake/Output, MAR, Accordion, R ecent Results, Med Rec Status andCardiac Rhythm nsr . Name Value Range Interpretation Code Description [facility] Document(s ) ID Date Data Source [id number] 12/13/2018 07:45:49 AM EDT [facility] History:Respiratory difficulty.FINDINGS: A frontal portable view of the chest is compared to the prior study [facility] the same day.EKG leads overlie the chest.The [...] Name Value Range Interpretation Code Description Data [facility] Supporting Document(s ) ID Date Data Source [id number] 12/13/2018 07:05:06 AM EDT [facility] Patient condition updated with DR Hills , new orders received and startedstarted. Name Value Range Interpretation Code Description Data [facility] Supporting Document(s ) ID Date Data Source [id number] 12/13/2018 07:03:24 AM EDT [facility] TRANSFER - IN REPORT:Verbal report recei [...] Supporting Document(s ) ID Date Data Source [id number] 12/13/2018 06:39:19 AM EDT [facility] The history is provided by the EMS perso nnel.7:08 PM: Evelio Carlin is a 68 y.o. male with h/o COPD, pneumonia and PE who presents to the ED via EMS from intermediate for lethargy since 7 AM, withassociated fever. [...] QTC Calculation (Bezet) 509 ms Calculated P [place] 62 degr ees Calculated R [place] 65 degrees Calculated T [place] 66 degrees Diagnosis Sinus rhythmI VCD, consider [...] O2 O2 FLOW 2 L/min Performed by [id number]: NSR at 80 BPM, poor baseline, limiting [...] ICD-10-CM ICD-9-CM1. Sepsis, due to unspecified organism ([facility] ) A41.9 038.9 995.912. Pneumonia, unspecified organism J18.9 4863. COPD ex acerbation ([facility]) J44.1 491.21Patient condition at time of [...] Supporting Document(s ) ID Date Data Source [id number] 12/13/2018 05:39:10 AM EDT [facility] Name Value Range Interpretation Description Data Sup porting Code Source(s) Document(s ) Lactate 2.1 0.4-2.0 Above upper panic [facility] [Moles/volu MMOL/L limits [facility]] in Hospital Serum or Plasma CALLED TO AND READ BACK BYANNE HOLLOWAY RN/CCU 0539 12/13/18 JERRY HUIZARRODOLFO ID Date Data Source [id number] 12/13/2018 05:20:38 AM EDT [facility] Name Value Range Interpretation Description Data Sup porting Code Source(s) Document(s ) Sodium 136 136-145 [facility] [Moles/volume] mmol/L [facility] in Serum or Hospital Plasma Potassium 4.3 3.5-5.1 [facility] [Moles/volume] mmol/L [facility] in Serum or Hospital Plasma Chloride 100 98-107 [facility] [Moles/volume] mmol/L [facility] in Serum or Hospital Plasma Carbon 30 21-32 [facility] dioxide, total mmol/L [facility] [Moles/volume] Hospital in Serum or Plasma Anion gap in 10 10-20 [facility] Serum or mmol/L [facility] Plasma Hospital Glucose 134 74-106 Above high normal [facility] [Mass/volume] mg/dL [facility] in Serum or Hospital Plasma Urea nitrogen 11 mg/dL 7-18 [facility] [Mass/volume] [facility] in Serum or Hospital Plasma Creatinine 0.42 0.70-1.3 Below low normal [facility] [Mass/volume] mg/dL 0 [facility] in Serum or Hospital Plasma Glomerular >60 [facility] - [facility] filtration [facility]ism rate/1.73 sq M Hospital predicted among blacks [Volume Rate/Area] in Serum or Plasma by Creatinine-bas ed formula (MDRD) Glomerular >60 [facility] - Good filtration [facility] rate/1.73 sq M Hospital predicted among non-blacks [Volume Rate/Area] in Serum or Plasma by Creatinine-bas ed formula (MDRD) Calcium 8.4 8.5-10.1 Below low normal [facility] [Mass/volume] mg/dL [facility] in Serum or Hospital Plasma Phosphate 2.4 2.5-4.9 Below low normal [facility] [Mass/volume] mg/dL [facility] in Serum or Hospital Plasma Albumin 2.0 g/dL 3.5-4.7 Below low normal [facility] [Mass/volume] [facility] in Serum or Hospital Plasma by Bromocresol purple (BCP) dye binding method ID Date Data Source [id number] 12/13/2018 05:20:38 AM EDT [facility] Name Value Range Interpretation Description Data Sup porting Code Source(s) Document(s ) Magnesium 1.9 mg/dL 1.6-2.6 [facility] [Mass/volume] [facility] in Serum or Hospital Plasma ID Date Data Source [id number] 12/13/2018 04:56:16 AM EDT [facility] Name Value Range Interpretation Description Data Sup porting Code Source(s) Document(s ) Leukocytes 8.4 K/uL 4.8-10.6 [facility] - [#/volume] in Good Blood by [facility] Automated count Hospital Erythrocytes 3.39 4.70-6.0 Below low normal [facility] - [#/volume] in M/uL 0 [facility] Blood by [facility] Automated count Hospital Hemoglobin 11.2 14.0-18. Below low normal [facility] - [Mass/volume] in g/dL 0 [facility] Blood [facility] Hematocrit 33.7 % 42.0-52. Below low normal [facility] - [Volume 0 Good Fraction] of [facility]oro[facility]rianism Blood by [facility] Automated count Erythrocyte mean 99.4 FL 81.0-94. Above high normal [facility] - corpuscular 0 Good volume [Entitic [facility] volume] by Hospital Automated count Erythrocyte mean 33.0 PG 27.0-35. [facility] - corpuscular 0 Good hemoglobin [facility] [Entitic mass] [facility] by Automated count Erythrocyte mean 33.2 30.7-37. [facility] - corpuscular g/dL 3 Good hemoglobin [facility]ism concentration [facility] [Mass/volume] by Automated count Erythrocyte 15.4 % 11.5-14. Above high normal [facility] - distribution 0 Good width [Ratio] by [facility] Automated count Hospital Platelets 138 K/uL 130-400 [facility] - [#/volume] in Good Blood by [facility] Automated count [facility] Platelet mean 9.1 FL 9.2-11.8 Below low normal [facility] - volume [Entitic Good volume] in Blood [facility] by Automated Hospital count Segmented 85 % 48.0-72. Above high normal [facility] - neutrophils/100 [address] leukocytes in [facility] Lymphocytes/100 10 % 18.0-40. Below low normal [facility] - leukocytes in 0 [facility] Blood [facility] Monocytes/100 5 % 2.0-12.0 [facility] - leukocytes in [facility] Blood [facility] Eosinophils/100 0 % 0.0-7.0 [facility] - leukocytes in [facility] Basophils/100 0 % 0.0-3.0 [facility] - leukocytes in [facility] Segmented 7.2 K/UL 1.5-6.6 Above high normal [facility] - neutrophils Good [#/volume] in [facility] Lymphocytes 0.8 K/UL 1.5-3.5 Below low normal [facility] - [#/volume] in [facility] Monocytes 0.4 K/UL 0.0-1.0 [facility] - [#/volume] in [facility] Eosinophils 0.0 K/UL 0.0-0.7 [facility] - [#/volume] in [facility] Basophils 0.0 K/UL 0.0-0.1 [facility] - [#/volume] in [facility] Differential [facility] - cell count Good method - [facility] Immature 1 % 0.0-2.0 [facility] - granulocytes/100 Good leukocytes in [facility] by Hospital Automated count ID Date Data Source [id number] 12/13/2018 01:32:28 AM EDT [facility] [id number] [facility] [employer] [facility] [address] [facility] [address] [phone]/ vEelio Carlin (Male) [id number] ES I 2 ED Dispo:ADMIT Chief Complaint: Lethargy, Fever Diagnosis: Sepsis, due to unspecified organism (HCC) [] Pneumonia, unspecified organism [] COPD exacerbation (HCC) [] Current Providers: Attending: Devang Romero; Eloisa Spencer Consulting Provider: Eloisa Hills Primary Nurse: ANNA TidwellN: [id number] 4 [id number] [employer] [phone] - [facility] [employer] MrnMRN: [id number] [employer] [phone] [id number] - [facility] [employer] Age SexDOB 1950 AGE 68 SEX Male Primary Care Provider: Mili Hills DO Qpmzohtzi: (No Known Allergies)Date Reviewed: 12/12/2018Reviewed by: Aliyah Arellano RN - Review CompleteED Provider Notes: No notes of this type exist for this encounter.ED Orders [id number] C ULTURE, BLOOD [#[id number]] Priority: STAT Class: ER Collect Specimen Source: Bloo d Standing Order Information Remaining Occurrences:0/1 Interval:ONE TIME Last released: 12/12/2018 Released orders: SatDec 12, 2018 7:16 PM by: WES ROMERO [id number] CULTURE , BLOOD [#[id number]] Priority: STAT Class: ER Collect Specimen Source: Blood St anding Order Information Remaining Occurrences:0/1 Interval:ONE TIME Last released:0 12/12/2018 Released orders: SatDec 12, 2018 7:16 PM by: WES ROMERO [id number] CULTURE , URINE [#[id number]] Priority: STAT Class: ER Collect Specimen Source: Cath Urine Standing Order Information Remaining Occurrences:0/1 Interval:ONE TIME Last released:0 12/12/2018 Released orders: SatDec 12, 2018 7:16 PM by: WES ROMERO Reason for C ulture -> Other [id number] CULTURE, BLOOD [#[id number]] Priority: STAT Class: E R Collect Specimen Source: Blood Specimen Collected: 12/12/2018 7:40 PM Resulting Agency: [facility] Test ID: HBCS Released on: 12/12/2018 7:16 PM [id number] CULTURE, BLOOD [#[id number]] Priority: STAT Class: ER Collect Specimen Source: Blood Specimen Collected: 12/12 7:40 PM Resulting Agency: [facility] Test ID: HBCS Released on: 12/12/2018 7:16 PM [id number] CULTURE, URINE [#[id number]] Priority: STAT Class: ER Collect Sp ecimen Source: Cath Urine Resulting Agency: [facility] Test ID: NEWSPAPER ILLUSTRATOR Reason for Culture -> Other Released on: 12/12/2018 7:16 PM [id number] CULTURE, URINE [# [id number]] Priority: Routine Class: ER Collect Resulting Agency: [facility] Test ID: NEWSPAPER ILLUSTRATOR Standing Order Information Remaining Occurrences:0/1 Released orders: SatDec 12, 2018 8:04 PM by: Automatic Batch Process [id number] CULTURE, URINE [#[id number]] Pr iority: Routine Class: ER Collect Specimen Collected: 12/12/2018 8:04 PM Resulting Agency: [facility] Test ID: NEWSPAPER ILLUSTRATOR Released on: 12/12/2018 8:04 PM [id number] LACTIC ACID [#[id number]] Priority: STAT Class: ER Collect Standing Order Information Remainin g Occurrences:0/2 Interval:EVERY 4 HRS Last released:12/12/2018 Released orders : SatDec 12, 2018 11:01 PM by: WES ROMERO SatDec 12, 2018 7:16 PM by: WES DAWSON [id number] URINALYSIS W/ RFLX MICROSCOPIC [#[id number]] Priority: STAT Class: E R Collect Standing Order Information Remaining Occurrences:0/1 Interval:ONE TIME Last r eleased:12/12/2018 Released orders: SatDec 12, 2018 7:16 PM by: WES ROMERO [id number] M ETABOLIC PANEL, COMPREHENSIVE [#[id number]] Priority: STAT Class: ER Collect Standing Order Info rmation Remaining Occurrences:0/1 Interval:ONE TIME Last released:12/12/2018 Released orders: SatDec 12, 2018 7:16 PM by: WES ROMERO [id number] CBC WITH AUTOMATED DIFF [#[id number]] Priority: STAT Class: ER Collect Standing Order Information Remaining Occurre nces:0/1 Interval:ONE TIME Last released:12/12/2018 Released orders: SatDec 12 7:16 PM by: WES ROMERO [id number] TROPONIN I [#[id number]] Priority: STAT Class: ER Collect Standing Order Information Remaining Occurrences:0/1 Interval:ONE TI ME Last released:12/12/2018 Released orders: SatDec 12, 2018 7:16 PM by: Devang ROMERO [id number] CK [#[id number]] Priority: STAT Class: ER Collect St anding Order Information Remaining Occurrences:0/1 Interval:ONE TIME Last released:0 12/12/2018 Released orders: SatDec 12, 2018 7:16 PM by: WES ROMERO [id number] BNP [#[id number]] Priority: STAT Class: ER Collect Standing Order Information Remaining Occurrences:0/1 Interval:ONE TIME Last released:12/12/2018 Released orders : SatDec 12, 2018 7:16 PM by: WES ROMERO [id number] PTT [# [id number]] Priority: STAT Class: ER Collect Specimen Source: Blood Standing Order Information Remaining Occurrences:0/1 Interval:ONE TIME Last released:12/12/2018 Released orders : SatDec 12, 2018 7:16 PM by: WES ROMERO [id number] PROTHROMBIN TIME + INR [# [id number]] Priority: STAT Class: ER Collect Standing Order Information Remaining Occurrences:0 /1 Interval:ONE TIME Last released:12/12/2018 Released orders: SatDec 12, 2018 7:16 PM by: WES ROMERO [id number] BLOOD GAS, ARTERIAL [#[id number]] Priority: S TAT Class: ER Collect Standing Order Information Remaining Occurrences:0/1 Interval:ONE TI ME Last released:12/12/2018 Released orders: SatDec 12, 2018 7:16 PM by: Devang ROMERO [id number] LACTIC ACID [#[id number]] Priority: STAT Class: ER Collect Spec imen Source: Plasma Specimen Collected: 12/12/2018 7:40 PM Resulting Agency: [facility] Test ID: LAC Released on: 12/12/2018 7:16 PM [id number] URINALYSIS W/ RFLX MICROSCOPIC [#[id number]] Priority: STAT Class: ER Collect Specimen Source: Urine Specimen Collected: 12/12 8:04 PM Resulting Agency: [facility] Test ID: UA Released on: 12/12/2018 7:16 PM [id number] METABOLIC PANEL, COMPREHENSIVE [#[id number]] Priority: STAT Class: ER Collect Spec imen Source: Plasma Specimen Collected: 12/12/2018 7:40 PM Resulting Agency: [facility] Test ID: MPL Released on: 12/12/2018 7:16 PM [id number] CBC WITH AUTOMATED DIFF [#[id number]] Priority: STAT Class: ER Collect Specimen Source: Whole Blood Specimen Collected: 12/12/2018 7:40 PM Resulting Agency: [facility] Test ID: CBCA Released on : 12/12/2018 7:16 PM [id number] TROPONIN I [#[id number]] Priority: STAT Class: E R Collect Specimen Source: Plasma Specimen Collected: 12/12/2018 7:40 PM Resulting Agency: [facility] Test ID: TROIP Released on: 12/12/2018 7:16 PM [id number] CK [#[id number]] Priority: STAT Class: ER Collect Specimen Source: Plasma Specimen Collected: 11/15 7:40 PM Resulting Agency: [facility] Test ID: CPKP Released on: 12/12/2018 7:16 PM [id number] BNP [#[id number]] Priority: STAT Class: ER Collect Sp ecimen Source: Plasma Specimen Collected: 12/12/2018 7:40 PM Resulting Agency: [facility] Test ID: BNPPB Released on: 12/12/2018 7:16 PM [id number] PTT [#[id number]] Priority: STAT Class: ER Collect Specimen Source: Plasma Specimen Collected: 11/15 7:40 PM Resulting Agency: [facility] Test ID: APTT Released on: 12/12/2018 7:16 PM [id number] PROTHROMBIN TIME + INR [#[id number]] Priority: STAT Class: ER Collect Sp ecimen Source: Plasma Specimen Collected: 12/12/2018 7:40 PM Resulting Agency: [facility] Test ID: APTHR Released on: 12/12/2018 7:16 PM [id number] BLOOD GAS, ARTERIAL [#[id number]] Priority: STAT Class: ER Collect Released on: 12/12/2018 7:16 PM [id number] CBC WI TH AUTOMATED DIFF [#[id number]] Canceled Priority: STAT Class: ER Collect Canceled by GEOVANI, LAB IN [facility] on SatDec 12, 2018 8:38 PM Reason: Other Comment: DUPLICATE REQUEST Standing Order Information Remaining Occurrences:0/1 Interval:ONE TIME Last released:0 12/12/2018 Released orders: SatDec 12, 2018 7:56 PM by: WES ROMERO [id number] CBC WIT H AUTOMATED DIFF [#[id number]] Canceled Priority: STAT Class: ER Collect Specimen Collected : 12/12/2018 8:00 PM Resulting Agency: [facility] Test ID: CBCDevang Cancele d by GEOVANI LAB IN [facility] on SatDec 12, 2018 8:38 PM Reason: Other Comment: DUPLICATE REQUEST Released on: 12/12/2018 7:56 PM [id number] BLOOD GAS, ARTERIAL [#[id number]] Priority: Routine Class: ER Collect Resulting Agency: [facility] Test ID: ABGG1 Standing O rder Information Remaining Occurrences:0 Released orders: SatDec 12, 2018 8:07 PM by: Devang bachomatic Batch Process [id number] BLOOD GAS, ARTERIAL [#[id number]] Priority: Routine Class : ER Collect Specimen Source: Arterial Blood Specimen Collected: 12/12/2018 8:07 PM Resulting Agency: [facility] Test ID: ABGG1 Released on: 12/12/2018 8:07 PM [id number] LACTIC ACI D [#[id number]] Priority: STAT Class: ER Collect Specimen Source: Plasma Specim en Collected: 12/13/2018 12:30 AM Resulting Agency: [facility] Test ID: LAC Rel eased on: 12/12/2018 11:01 PM [id number] RENAL FUNCTION PANEL [#[id number]] Priority: Routine Class: ER Collect Standing Order Information Remaining Occurrences:14 Interval:DAILY Last released:12/12/2018 Released orders: SatDec 12, 2018 11:37 PM by: MILI HILLS [id number] MAGNESIUM [#[id number]] Priority: Routine Class: ER Collect Standing Order Information Remaining Occurrences:1415 Interval:DAILY Last released:11/15 Released orders: SatDec 12, 2018 11:37 PM by: MILI HILLS [id number] CBC WITH AUTOM ATED DIFF [#[id number]] Priority: Routine Class: ER Collect Standing Order Information Remaining Occurrences:2/3 Interval:DAILY Last released:12/12/2018 Released orders : SatDec 12, 2018 11:37 PM by: MILI HILLS [id number] LACTIC ACID [# [id number]] Priority: Routine Class: ER Collect Standing Order Information Remaining Occurrences:0 /1 Interval:TOMORROW AM Last released:12/12/2018 Released orders: SatDec 12, 2018 11:37 PM by: MILI HILLS [id number] RENAL FUNCTION PANEL [#[id number]] Priority: Rout ine Class: ER Collect Resulting Agency: [facility] Test ID: RENLP Released o n: 12/12/2018 11:37 PM [id number] MAGNESIUM [#[id number]] Priority: Routine Class : ER Collect Resulting Agency: [facility] Test ID: MGPL Released on: 12/12/2018 11:37 PM [id number] CBC WITH AUTOMATED DIFF [#[id number]] Priority: Routine Class: ER Collect Resulting Agency: [facility] Test ID: CBCA Released on: 12/12/2018 11:37 PM LAB21 96 LACTIC ACID [#[id number]] Priority: Routine Class: ER Collect Resulting Ag ency: [facility] Test ID: LAC Released on: 12/12/2018 11:37 PM [id number] LACTIC ACI D [#[id number]] Canceled Priority: STAT Class: ER Collect Canceled by GEOVANI , LAB IN [place] on Sat Dec 13, 2018 12:49 AM Reason: Other Comment: DUPLICATE REQUEST Standin g Order Information Remaining Occurrences:0/1 Interval:ONE TIME Last released:0 12/13/2018 Released orders: SatDec 13, 2018 12:08 AM by: WES ROMERO [id number] LACTIC ACID [#[id number]] Canceled Priority: STAT Class: ER Collect Specimen Collected : 12/13/2018 12:15 AM Resulting Agency: [facility] Test ID: LAC Canceled by GEOVANI, LAB IN [place] on Sat Dec 13, 2018 12:49 AM Reason: Other Comment: DUPLICATE REQUEST Released on: 12/13/2018 12:08 AM [id number] XR CHEST PORT [#[id number]] Priority: STAT Class: Hospital Performed Standing Order Information Remaining Occurrences:0/1 Inter seema:ONE TIME Last released:12/12/2018 Released orders: SatDec 12, 2018 7:16 PM by: WES RAMOS Reason for Exam -> Sepsis [id number] XR CHEST PORT [#[id number]] P riority: STAT Class: Hospital Performed Specimen Collected: 12/12/2018 8:02 PM Resulting Agency: [facility] Test ID: [id number] Reason for Exam -> Sepsis Released on: 12/12/2018 7:16 PM LQD100 0 XR CHEST PORT [#[id number]] Priority: STAT Class: Hospital Performed Stand ing Order Information Remaining Occurrences:0/1 Interval:ONE TIME Last released:0 12/12/2018 Released orders: SatDec 12, 2018 8:27 PM by: WES ROMERO Reason for E xam -> first study poor quality, rotated, limiting interpitation [id number] XR CHEST PORT [#[id number]] Priority: STAT Class: Hospital Performed Resulting Agency: [facility] Test ID: [id number] Reason for Exam -> first study poor quality, rotated, limiting i nterpitation Released on: 12/12/2018 8:27 PM GOC0986 EKG, 12 LEAD, INITIAL [#[id number]] Priority: STAT Class: Hospital Performed Standing Order Information Remaining Occurrences:0 /1 Interval:ONE TIME Last released:12/12/2018 Released orders: SatDec 12, 2018 7:16 PM by: WES ROMERO Reason for Exam: -> Sepsis [id number] EKG, 12 LEAD, INITIAL [#[id number]] Priority: STAT Class: Hospital Performed Specimen Collected: 12/12/2018 7:13 PM Resulting Agency: [facility] Test ID: [id number] Reason for Exam: -> Sepsis Released on: 12/12/2018 7:16 PM [id number] VITAL SIGNS [#[id number]] Priority: Routine Class: Hospital Perfo rmed Standing Order Information Remaining Occurrences:0/1 Interval:EVERY HOUR Last rele ased:12/12/2018 Released orders: SatDec 12, 2018 7:16 PM by: WES ROMERO [id number] STRI CT I & O [#[id number]] Priority: Routine Class: Hospital Performed Standing Or bassem Information Remaining Occurrences:0/1 Interval:CONTINUOUS Last released :12/12/2018 Released orders: SatDec 12, 2018 7:16 PM by: WES ROMERO [id number] NEUROLO GIC STATUS ASSESSMENT [#[id number]] Priority: Routine Class: Hospital Performed Standing Or bassem Information Remaining Occurrences:0/1 Interval:EVERY HOUR Last released:12/12/2018 Released orders: SatDec 12, 2018 7:16 PM by: WES ROMERO [id number] NOTIFY PROVIDER: JOMAR PIÑA [#[id number]] Priority: STAT Class: Hospital Performed Standing Order Information Remaining Occurrences:0/1 Interval:CONTINUOUS Last released:12/12/2018 Released o rders: SatDec 12, 2018 7:16 PM by: WES ROMERO Describe Order -> Notify provider within one hour to start vasopressors if patient is unable to maintain a MAP of greater than or equal to 65 mmHg despite fluid resuscitation [id number] HEMODYNAMIC MONITORING [#[id number]] Priority: STAT Class: Hospital Performed Standing Order Information Remainin g Occurrences:0/1 Interval:CONTINUOUS Last released:12/12/2018 Released orders : SatDec 12, 2018 7:16 PM by: WES ROMERO Comment:In the event of persistent arter ial hypotension after two hours of fluid resuscitation efforts, or initial lactate greater than or equal to 4 mmol/L (36 mg/dl) measure and record CVP and ScvO2 [id number] MEASURE RECTAL TEMPERATU RE [#[id number]] Priority: STAT Class: Hospital Performed Standing Order Information Remaining Occurrences:0/1 Interval:ONE TIME Last released:12/12/2018 Released orders : SatDec 12, 2018 7:16 PM by: WES ROMERO [id number] POC GLUCOSE [# [id number]] Priority: STAT Class: Hospital Performed Standing Order Information Remaining Occurre nces:0/1 Interval:CONTINUOUS Last released:12/12/2018 Released orders: SatDec 12, 2018 7:16 PM by: WES ROMERO [id number] VITAL SIGNS [#[id number]] Priorit y: STAT Class: Hospital Performed Released on: 12/12/2018 7:16 PM [id number] STRICT I & O [#[id number]] Priority: STAT Class: Hospital Performed Released on: 12/12/2018 7:16 PM [id number] 5 NEUROLOGIC STATUS ASSESSMENT [#[id number]] Priority: STAT Class: Hospital Performed Relea sed on: 12/12/2018 7:16 PM [id number] NOTIFY PROVIDER: SPECIFY [#[id number]] Priority: STAT Cla ss: Hospital Performed Describe Order -> Notify provider within one hour to start vasopressors if patient is unable to maintain a MAP of greater than or equal to 65 mmHg despi te fluid resuscitation Released on: 12/12/2018 7:16 PM [id number] HEMODYNAMIC MONITORING [# [id number]] Priority: STAT Class: Hospital Performed Comment:In the event of persistent arterial hypoten elio after two hours of fluid resuscitation efforts, or initial lactate greater than or equal to 4 mmol/L (36 mg/dl) measure and record CVP and ScvO2 Released on: 12/12/2018 7:16 PM GCI096 9 MEASURE RECTAL TEMPERATURE [#[id number]] Priority: STAT Class: Hospital Performed Relea sed on: 12/12/2018 7:16 PM [id number] POC GLUCOSE [#[id number]] Priority: STAT Cla ss: Hospital Performed Released on: 12/12/2018 7:16 PM [id number] NOTIFY PROVIDER: SPECIFY [# [id number]] Priority: STAT Class: Hospital Performed Standing Order Information Remaining Occurre nces:0/1 Interval:CONTINUOUS Last released:12/12/2018 Released orders: SatDec 12, 2018 7:56 PM by: WES ROMERO Describe Order -> Notify provider within one hour to start vasopr essors if patient is unable to maintain a MAP of greater than or equa l to 65 mmHg despite fluid resuscitation [id number] HEMODYNAMIC MONITORING [#[id number]] Priority: STAT Class: Hospital Performed Standing Order Information Remaining Occurrences:0 /1 Interval:CONTINUOUS Last released:12/12/2018 Released orders: SatDec 12, 2018 7:56 PM by: WES ROMERO Comment:In the event of persistent arterial hypotension after tw o hours of fluid resuscitation efforts, or initial lactate greater than or equal to 4 mm ol/L (36 mg/dl) measure and record CVP and ScvO2 [id number] NOTIFY PROVIDER: SPECIFY [#[id number]] Priority: STAT Class: Hospital Performed Describe Order -> Notify provider within one hour to st art vasopressors if patient is unable to maintain a MAP of greater than or equal to 65 mmHg despite fluid resuscitation Released on: 12/12/2018 7:56 PM [id number] HEMODYNAMI C MONITORING [#[id number]] Priority: STAT Class: Hospital Performed Comment:In the eduardo nt of persistent arterial hypotension after two hours of fluid resuscitation efforts, or initial lactate greater than or equal to 4 mmol/L (36 mg/dl) measure and record CVP and ScvO2 Rele ased on: 12/12/2018 7:56 PM IVT11 SALINE LOCK IV [#[id number]] Priority: STAT Cl ass: Hospital Performed Standing Order Information Remaining Occurrences:0/1 Interval:ONE TI ME Last released:12/12/2018 Released orders: SatDec 12, 2018 7:16 PM by: Devang ROMERO IVT11 SALINE LOCK IV [#[id number]] Priority: STAT Class: Hospital Perform ed Released on: 12/12/2018 7:16 PM SODIUM CHLORIDE 0.9 % IJ SYRG [#[id number]] Priority : STAT Class: Normal PIPERACILLIN-TAZOBACTAM 3.375 GRAM I* [#[id number]] Priority: STAT Class: N ormal Antibiotic Indications -> Sepsis of Unknown Etiology PIPERACILLIN-TAZOBACTAM 3.375 GRAM I* [#[id number]] Priority: STAT Class: Normal Antibiotic Indications -> Sepsis of Unknown Etiolog y IPRATROPIUM-ALBUTEROL 2.5 MG-0.5 MG/* [#[id number]] Priority: STAT Class: Normal MODE OF DELIVERY -> Nebulizer METHYLPREDNISOLONE (PF) 125 MG/2 ML * [#[id number]] Priority: STAT Class: Normal IPRATROPIUM-ALBUTEROL 2.5 MG-0.5 MG/* [#[id number]] Priority: STAT Class: Normal MODE OF DELIVERY -> Nebulizer IPRATROPIUM-ALBUTEROL 2.5 MG-0.5 MG/* [#[id number]] Priority: STAT Cla ss: Normal MODE OF DELIVERY -> Nebulizer SODIUM CHLORIDE 0.9% BOLUS IV [#[id number]] Priority: STAT Class: Normal SODIUM CHLORIDE 0.9% BOLUS IV [#[id number]] Priorit y: STAT Class: Normal MD38 SEVERE SEPSIS AND SEPTIC SHOCK BUNDL* [#[id number]] Priority: STAT Class: H ospital Performed Standing Order Information Remaining Occurrences:0/1 Interval:CONTIN UOUS Last released:12/12/2018 Released orders: SatDec 12, 2018 7:16 PM by: Devang ROMERO SEVERE SEPSIS AND SEPTIC SHOCK [facility]* [#[id number]] Priority: STAT Class: Hospital Perform ed Released on: 12/12/2018 7:16 PM SCOTTIE SEVERE SEPSIS AND SEPTIC SHOCK [facility]* [#[id number]] Prio rity: STAT Class: Hospital Performed Standing Order Information Remaining Occurrences:0/1 Int erval:CONTINUOUS Last released:12/12/2018 Released orders: SatDec 12, 2018 7:56 PM by: WES ROMERO SEVERE SEPSIS AND SEPTIC SHOCK [facility]* [#[id number]] Priority: STAT Class: H ospital Performed Released on: 12/12/2018 7:56 PM [id number] TYPE & SCREEN [#[id number]] Canceled Priority: STAT Class: ER Collect Canceled by GEOVANI, LAB IN [facility] on SatDec 13, 2018 1:11 AM Reason: Other Comment: NO SAMPLE RECEIVED Standing Order Information Remainin g Occurrences:0/1 Interval:ONE TIME Last released:12/12/2018 Released orders : SatDec 12, 2018 7:16 PM by: WES ROMERO Comment:ENTER SURGERY DATE IF FOR PRE-OP TESTING. [id number] TYPE & SCREEN [#[id number]] Canceled Priority: STAT Class: ER Co llect Specimen Collected: 12/12/2018 7:30 PM Resulting Agency: [facility] Test ID: TYSC Canceled by GEOVANI, LAB IN [facility] on SatDec 13, 2018 1:11 AM Reason: Other Comment: NO SAMPLE RECEIVED Comment:ENTER SURGERY DATE IF FOR PRE-OP TESTING. Released on: 12/12/2018 7:1 6 PM [id number] GLUCOSE, POC [#[id number]] Priority: Routine Class: ER Collect Re sulting Agency: [facility] Test ID: BGG Standing Order Information Remainin g Occurrences:0/1 Released orders: SatDec 12, 2018 7:20 PM by: Automatic Batch Process LAB90 25 GLUCOSE, POC [#[id number]] Priority: Routine Class: ER Collect Specimen Harriett rce: Whole Blood Specimen Collected: 12/12/2018 7:20 PM Resulting Agency: [facility] Test ID: BGG Released on: 12/12/2018 7:20 PM JAS325 IP CONSULT TO PRIMARY CARE PROVIDER [#[id number]] Priority: STAT Class: Hospital Performed Standing Order Information Remaining Occurrences:0 /1 Interval:ONE TIME Last released:12/12/2018 Released orders: SatDec 12, 2018 9:53 PM by: WES ROMERO Reason for Consult: -> admission Did you call or speak to the consulting provider? -> No Consult To -> reinier DIR158 IP CONSULT TO PRIMARY CARE PROVIDER [#[id number]] Priority: STAT Class: Hospital Performed Comment:dr Romero spoke w dr Hills Reason f or Consult: -> admission Did you call or speak to the consulting provider? -> No Consult To -> olivia n Released on: 12/12/2018 9:53 PM [id number] INITIAL PHYSICIAN ORDER: INPATIENT [#[id number]] Devin foley: Routine Class: ADT Pend Transfer Standing [...] Extend ed Care Facility (e.g. Adult Home, Jail, etc.) [id number] INITIAL PHYSICIAN ORDER: INPATIENT [#[id number]] Priority: Routine Class: ADT Pend Transfer Status: [...] -> Extended Care Facility (e.g. Adult Home, Jail, etc.) Released on: 12/12/2018 11:34 PM CON54 IP CONSULT TO PULMONOLOGY [#[id number]] Priority: Routine Class: Hospital Performed Standing Order Information Odinin carol Occurrences:N/A-not released Interval:ONE TIMEkristoferEvelio herrera MR#: [id number]* Rm: 279-01Ht: 5' 2" Wt: 117 lb Code: Prior Iso:Diagnosis:Sepsis due to undetermined organism (HCC) [A41.9]Allergies: No Known Allergies -------- Current as of: 12/13/18 0132 GI=Given NB=New Bag --albuterol-ipratropium (DUO-NEB) 2.5 MG-0.5 MG/3 ML #[id number] Admin Amount: 3 mL Ordered Dose: 3 mL Route: Nebulization Freq: NOW Start Date: 11/07/18 No administration times (back 96 hours, ahead 96 hours). ------methylPREDNISolone (PF) (Solu-MEDROL) injection 125 mg #[id number] Admin Amount: 2 mL = 125 mg of 125 mg/2 mL Ordered Dose: 125 mg Route: Int raVENous Freq: NOW Start Date: 11/07/18 No administration times (back 96 hours, ahe ad 96 hours). ------cefTRIAXone (ROCEPHIN) 1 g in 0.9% sodium chloride (MBP/ADV) 50 m L M*#[id number] Admin Amount: 1 g Ordered Dose: 1 g Route: IntraVENous Freq: NOW Start Date: 11/07/18 Rate: 100 mL/hr Duration: 30 Minutes No administration times (back 96 hours, ahead 96 hours). ------azithromycin (ZITHROMAX) 500 mg in NS 250 mL #[id number] Admin Amount: 250 mL = 500 mg of 500 mg/250 mL Ordered Dose: 500 mg Ro shoalwater: IntraVENous Freq: NOW Start Date: 11/07/18 Rate: 250 mL/hr Dura tion: 60 Minutes No administration times (back 96 hours, ahead 96 hours). ------iopamidol (ISOVUE-370) 76 % injection 100 mL #[id number] Admin Amount: 100 mL Ordered Dose: 100 mL Route: IntraVENous Freq: RAD ONC E Start Date: 11/07/18 No administration times (back 96 hours, ahead 96 hours). ------sodium chloride 0.9 % bolus infusion 500 mL #[id number] Admin Amount: 500 mL Ordered Dose: 500 mL Route: IntraVENous Freq: ONCE Start Date: 11/08/18 Rate: 666.7 mL/hr Duration: 45 Minutes No administr ation times (back 96 hours, ahead 96 hours). ------ALPRAZolam (XANAX) tablet 0.25 mg #[id number] Admin Amount: 1 Tab (1 x 0.25 mg Tab) Ordered Dose: 0.25 mg Route: Ora l Freq: DAILY Start Date: 11/08/18 No administration times (back 96 hours, ahe ad 96 hours).Evelio Carlin MR#: [id number] * Rm: 279-01Ht: 5' 2" Wt: 1 17 lb Code: Prior Iso:Diagnosis:Sepsis due to undetermined organism (HCC) [A41.9]Aller gies: No Known Allergies -------- Current as of: 12/13/18 0132 GI=Given NB=New Bag --cefTRIAXone (ROCEPHIN) 1 g in 0.9% sodium chloride (MBP/ADV) 50 mL M*#[id number] Admin Amount: 1 g Ordered Dose: 1 g Route: IntraVENous Freq: EVERY 24 HOURS Start Date: 11/08/18 Rate: 100 mL/hr Duration: 30 Minutes No administration times (back 96 hours, ahead 96 hours). ------azithromycin (ZITHROMAX) 500 mg in 0.9% sodium chloride 250 mL IV PB #[id number] Admin Amount: 500 mg Ordered Dose: 500 mg Route: IntraVENous Freq: EVERY 24 HOURS Start Date: 7/27/19 Rate: 250 mL/hr Duration: 60 Minutes No administrati on times (back 96 hours, ahead 96 hours). ------LORazepam (ATIVAN) injection 0.5 mg #[id number] Admin Amount: 0.25 mL = 0.5 mg of 2 mg/mL Ordered Dose: 0.5 mg Ro shoalwater: IntraVENous Freq: ONCE Start Date: 11/10/18 No administration times (back 96 hours, ahead 96 hours). ------LORazepam (ATIVAN) injection 2 mg #[id number] Admin Amount: 1 mL = 2 mg of 2 mg/mL Ordered Dose: 2 mg Route: Int raVENous Freq: ONCE Start Date: 11/11/18 No administration times (back 96 hours, ahe ad 96 hours). ------LORazepam (ATIVAN) injection 0.5 mg #[id number] Admin Amount: 0.25 mL = 0.5 mg of 2 mg/mL Ordered Dose: 0.5 mg Ro shoalwater: IntraVENous Freq: ONCE Start Date: 11/11/18 No administration times (back 96 hours, ahead 96 hours). ------acetaminophen (OFIRMEV) infusion 1,000 mg #[id number] Admin Amount: 100 mL = 1,000 mg of 1,000 mg/100 mL Ordered Dose: 1,000 mg Ro shoalwater: IntraVENous Freq: EVERY 6 HOURS Start Date: 11/17/18 Rate: 400 mL/hr Durat ion: 15 Minutes No administration times (back 96 hours, ahead 96 hours). ------HYDROmorphone (DILAUDID) syringe 0.5 mg #[id number] Admin Amount: 0.5 mL = 0.5 mg of 0.5 mg/0.5 mL Ordered Dose: 0.5 mg Ro shoalwater: IntraVENous Freq: EVERY 6 HOURS NEEDED Start Date: 11/17/18 No administration times (back 96 hours, ahead 96 hours).Evelio Carlin MR#: [id number] * Rm: 279-01Ht: 5' 2" Wt: 117 lb Code: Prior Iso:Diagnosis:Sepsis due to undetermined organism (HCC) [A41.9]Aller gies: No Known Allergies -------- Current as of: 12/13/18131 GI=Given NB=New Bag --acetaminophen (OFIRMEV) infusion 1,000 mg #[id number] Admin Amount: 100 mL = 1,000 mg of 1,000 mg/100 mL Ordered Dose: 1,000 mg Ro shoalwater: IntraVENous Freq: EVERY 6 HOURS Start Date: 11/18/18 Rate: 400 mL/hr Durat ion: 15 Minutes No administration times (back 96 hours, ahead 96 hours). ------piperacillin-tazobactam (ZOSYN) 3.375 g in 0.9% sodium chloride (MBP*#[id number] Admin Amount: 3.375 g Ordered Dose: 3.375 g Route: IntraVENous Freq: EVERY 8 HOURS Start Date: 11/18/18 Rate: 25 mL/hr Duration: 240 Minutes No administra tion times (back 96 hours, ahead 96 hours). ------potassium chloride 10 mEq in 100 ml IVPB #[id number] Admin Amount: 100 mL = 10 mEq of 10 mEq/100 mL Ordered Dose: 10 mEq Ro shoalwater: IntraVENous Freq: EVERY 1 HOUR Start Date: 11/19/18 Rate: 100 mL/hr Durat ion: 60 Minutes No administration times (back 96 hours, ahead 96 hours). ------diatrizoate tiffani-diatrizoat sod (RUTHYGASTROVIEW,GASTRO GRAGEORGINA) 66-10 % *#[id number] Admin Amount: 30 mL Ordered Dose: 30 mL Route: Oral Freq: RAD ONCE Start Date: 11/19/18 No administration times (back 96 hours, ahead 96 hours). ------acetaminophen (OFIRMEV) infusion 1,000 mg #[id number] Admin Amount: 100 mL = 1,000 mg of 1,000 mg/100 mL Ordered Dose: 1,000 mg Ro shoalwater: IntraVENous Freq: EVERY 6 HOURS Start Date: 11/21/18 Rate: 400 mL/hr Durat ion: 15 Minutes No administration times (back 96 hours, ahead 96 hours). ------acetaminophen (OFIRMEV) infusion 1,000 mg #[id number] Admin Amount: 100 mL = 1,000 mg of 1,000 mg/100 mL Ordered Dose: 1,000 mg Ro shoalwater: IntraVENous Freq: EVERY 6 HOURS Start Date: 11/22/18 Rate: 400 mL/hr Dura tion: 15 Minutes No administration times (back 96 hours, ahead 96 hours). ------LORazepam (ATIVAN) tablet 0.5 mg #[id number] Admin Amount: 1 Tab (1 x 0.5 mg Tab) Ordered Dose: 0.5 mg Route: Per G Tube Freq: EVERY BEDTIME Start Date: 11/23/18 No administration times (back 96 hours, ahe ad 96 hours).Evelio Carlin MR#: [id number] * Rm: 279-01Ht: 5' 2" Wt: 1 17 lb Code: Prior Iso:Diagnosis:Sepsis due to undetermined organism (HCC) [A41.9]Aller gies: No Known Allergies -------- Current as of: 12/13/18 013 GI=Given NB=New Bag --vancomycin (VANCOCIN) 1,250 mg in 0.9% sodium chloride 250 mL IVPB #[id number] Admin Amount: 1,250 mg Ordered Dose: 1,250 mg Route: IntraVENous Freq: EVERY 12 H OURS Start Date: 11/24/18 Rate: 125 mL/hr Duration: 120 Minutes No administrati on times (back 96 hours, ahead 96 hours). ------potassium chloride (KLOR-CON) packet for solution 20 mEq #[id number] Admin Amount: 1 Packet (1 x 20 mEq Packet) Ordered Dose: 20 mEq Ro shoalwater: Oral Freq: 2 TIMES DAILY WITH MEALS Start Date: 11/25/18 No administration times (back 96 hours, ahe ad 96 hours). ------sodium chloride (NS) flush 5-10 mL #[id number] Admin Amount: 5-10 mL Ordered Dose: 5-10 mL Route: IntraVENous Freq: N EEDED Start Date: 12/12/18 No administration times (back 96 hours, ahead 96 hours). ------piperacillin-tazobactam (ZOSYN) 3.375 g in 0.9% sodium chloride (MBP*#[id number] Admin Amount: 3.375 g Ordered Dose: 3.375 g Route: IntraVENous Freq: NOW Start Date: 12/12/18 Rate: 200 mL/hr Duration: 30 Minutes Administratio n times (back 96 hours, ahead 96 hours): 12/12/18: SudhaNB -----albuterol-ipratropium (DUO-NEB) 2.5 MG-0.5 MG/3 ML #[id number] Admin Amount: 3 mL Ordered Dose: 3 mL Route: Nebulization Freq: NOW Start Date: 12/12/18 Administration times (back 96 hours, ahead 96 hours): 12/12/18: 2014GI -----methylPREDNISolone (PF) (Solu-MEDROL) injection 125 mg #[id number] Admin Amount: 2 mL = 125 mg of 125 mg/2 mL Ordered Dose: 125 mg Route: Int raVENous Freq: NOW Start Date: 12/12/18 Administration times (back 96 hours, ahe ad 96 hours): 12/12/18: 2014GI -----albuterol-ipratropium (DUO-NEB) 2.5 MG-0.5 MG/3 ML #[id number] Admin Amount: 3 mL Ordered Dose: 3 mL Route: Nebulization Freq: NOW Start Date: 12/12/18 Administration times (back 96 hours, ahead 96 hours): 12/12/18: 2037G Evelio Earl MR#: [id number] * Rm: 279-01Ht: 5' 2" Wt: 117 lb Code: Prior Iso:Diagnosis:Sepsis due to undetermined organism ([facility]) [A41.9]Allergies: No Know n Allergies -------- Current as of: 12/13/18 0132 GI=Given NB=New Bag --albuterol-ipratropium (DUO-NEB) 2.5 MG-0.5 MG/3 ML #[id number] Admin Amount: 3 mL Ordered Dose: 3 mL Route: Nebulization Freq: NOW Start Date: 12/12/18 Administration times (back 96 hours, ahead 96 hours): 12/12/18: 2121GI ----- Followed by [facility] (Order count: 2)sodium chloride 0. 9 % bolus infusion 1,000 mL #[id number] Admin Amount: 1,000 mL Ordered Dose: 1,000 [...] chloride 0.9 % bolus infusion 593 mL #[id number] Admin [place] unt: 593 mL Ordered Dose: 593 mL [...] times a day.Dispense Amount:Start Date:End Date:Doc. Provider: ProviderEdiecinacalcet (SENSIPAR ) 30 mg tabletSig:Take 60 mg by mouth daily.Dispense Amount:Start Date:End Date:Doc. Provider: Provider, Cindi istoricalvalproate (DEPAKENE) 250 mg/5 mL syrupSig:Take 750 mg by mouth two (2) times a day.Dispense Amoun t:Start Date:End Date:Doc. Provider: ProviderEdie ED Prescriptions None on FileFollow-up InformationFollow-up With:Mili Hills DODetails:Comments :Contact Info:[address] [place] [phone] Name Value Range Interpretation Code Description Data Harriett rce(s) Supporting Document(s ) ID Date Data Source [id number] 12/13/2018 01:07:41 AM EDT [facility] TRANSFER - OUT REPORT:Verbal report give [...] Supporting Document(s ) ID Date Data Source [id number] 12/13/2018 01:04:15 AM [facility] Value Range Interpretation Description Data Sup porting Code Source(s) Document(s ) Lactate 5.3 0.4-2.0 Above upper panic [facility] - Good [Moles/volu MMOL/L limits [facility]] in Hospital Serum or Plasma CALLED TO AND READ BACK BYDR ROMERO /Abbey Feldman 0103 12/13/18 JERRY CONCHA ID Date Data Source [id number] 12/12/2018 08:07:31 PM EDT [facility] Name Value Range Interpretation Description Data Sup porting Code Source(s) Document(s ) pH of Arterial 7.40 7.35-7.4 [facility] - Good blood [address] [place] [address] Carbon dioxide 55 mmHg 32-48 Above high normal [facility] - Good [Partial Zoroastrianism pressure] in Hospital Arterial blood Oxygen 56 mmHg 83-108 Below low normal [facility] - Good [Partial Zoroastrianism pressure] in Hospital Arterial blood Carbon 36 19-24 Above high normal [facility] dioxide, total mmol/L Zoroastrianism [Moles/volume] Hospital in Arterial blood Bicarbonate 34 21-28 Above high normal [facility] - Go od [Moles/volume] mmol/L Zoroastrianism in Arterial Hospital blood Oxygen 90 % 94-98 Below low normal [facility] Good saturation in Zoroastrianism Blood Hospital Base excess in 7.5 0-3 Above high normal [facility] - Good Arterial blood mmol/L Zoroastrianism by calculation Hospital Body site [facility] Arterial [facility] - Good patency Wrist Zoroastrianism artery --pre Hospital arterial puncture NASAL O22 Service comment [id number] [facility] ID Date Data Source [id number] 12/12/2018 08:03:28 PM EDT [facility] History:Fever. Lethargy.FINDINGS:2 front al views of [...] Supporting Document(s ) ID Date Data Source [id number] 12/14/2018 09:14:50 AM EDT [facility] Name Value Range Interpretation Description Data Sup porting Code Source(s) Document(s ) Service comment [facility] Bacteria [facility] identified in Zoroastrianism Unspecified Hospital specimen by Culture ID Date Data Source [id number] 12/12/2018 08:40:17 PM EDT [facility] Name Value Range Interpretation Description Data Sup porting Code Source(s) Document(s ) Color of Urine YEL Abnormal (applies [facility] - to non-numeric Good results) [facility] Appearance of CLEAR [facility] - Urine [facility] Specific gravity 1.035 1.003-1. Above high normal [facility] - of Urine by 030 Good Refractometry [facility] pH of Urine by 6.5 4.6-8.0 [facility] - Test strip Good [facility] Protein 30 mg/dL NEG Abnormal (applies [facility] - [Mass/volume] in to non-numeric Good Urine by Test results) [facility] Glucose NEG [facility] - [Mass/volume] in Good Urine by Zoroastrianism Automated test Hospital strip Ketones 5 mg/dL NEG Abnormal (applies [facility] - [Presence] in to non-numeric Good Urine by results) [facility]oro[facility]rianism Automated test [facility] strip Bilirubin.total NEG [facility] - [Presence] in Good Urine [facility] Hemoglobin NEG [facility] - [Presence] in Good Urine by Test [facility] Urobilinogen 0.2 0.2-1.0 [facility] - [Presence] in EU/dL Good Urine by Zoroastrianism Automated test [facility] strip Nitrite NEG [facility] - [Presence] in Good Urine by Zoroastrianism Automated test Hospital strip Leukocyte NEG Abnormal (applies [facility] - esterase to non-numeric Good [Presence] in results) [facility]astrianism Urine by Hospital Automated test strip Leukocytes 0-5 [facility] - [Presence] in Good Urine sediment Zoroastrianism by [facility] microscopy Erythrocytes 0-3 [facility] - [#/area] in Good Urine sediment Zoroastrianism by [facility] high power field Epithelial cells 0-10 [facility] - [#/area] in Good Urine sediment Zoroastrianism by [facility] high power field Bacteria NONE [facility] - [Presence] in Good Urine sediment Zoroastrianism by [facility] microscopy Casts [Presence] NONE Abnormal (applies [facility] - in Urine to non-numeric Good sediment by results) [facility] HYALINE Crystals [Presence] in Urine sediment by NONE [facility] - [facility] Light microscopy ID Date Data Source [id number] 12/17/2018 06:43:47 AM EDT [facility] - [facility] Name Value Range Interpretation Description Data Sup porting Code Source(s) Document(s ) Service comment [facility] - [facility] Bacteria [facility] identified in Zoroastrianism Unspecified Hospital specimen by Culture ID Date Data Source [id number] 12/17/2018 06:43:45 AM EDT [facility] Value Range Interpretation Description Data Sup porting Code Source(s) Document(s ) Service comment [facility] Bacteria [facility] identified in Zoroastrianism Unspecified Hospital specimen by Culture ID Date Data Source [id number] 12/12/2018 09:36:29 PM EDT [facility] Value Range Interpretation Description Data Sup porting Code Source(s) Document(s ) Lactate 5.5 0.4-2.0 Above upper panic [facility] [Moles/volu MMOL/L limits Zoroastrianism me] in Hospital Serum or Plasma CALLED TO AND READ BACK BY DR NICK GARCIA 12/12/18 @213 JULISSA JOHNHRY ID Date Data Source [id number] 12/12/2018 09:04:01 PM EDT [facility] Value Range Interpretation Description Data Sup porting Code Source(s) Document(s ) Troponin 0.00-0.05 [facility] Good I.cardiac Zoroastrianism [Mass/volume Hospital ] in Serum or Plasma [...] to 1.50 ng/mL ID Date Data Source [id number] 12/12/2018 09:04:01 PM EDT [facility] Value Range Interpretation Description Data Sup porting Code Source(s) Document(s ) Creatine 53 U/L 39-308 [facility] kinase Zoroastrianism [Enzymatic Hospital activity/volu me] in Serum or Plasma ID Date Data Source [id number] 12/12/2018 09:04:01 PM EDT [facility] - Good [facility] Hospital Name Value Range Interpretation Description Data Sup porting Code Source(s) Document(s ) Sodium 132 136-145 Below low normal [facility] - Good [Moles/volume] mmol/L Z[facility]astrianism in Serum or Hospital Plasma Potassium 4.2 3.5-5.1 [facility] - Good [Moles/volume] mmol/L Zoroastrianism in Serum or Hospital Plasma Chloride 92 98-107 Below low normal [facility] - Good [Moles/volume] mmol/L Zoroastrianism in Serum or Hospital Plasma Carbon 34 21-32 Above high normal [facility] - Good dioxide, total mmol/L Zoroastrianism [Moles/volume] Hospital in Serum or Plasma Anion gap in 10 10-20 [facility] - Good Serum or mmol/L Zoroastrianism Plasma Hospital Glucose 155 74-106 Above high normal [facility] - Good [Mass/volume] mg/dL Zoroastrianism in Serum or Hospital Plasma Urea nitrogen 12 mg/dL 7-18 [facility] - Good [Mass/volume] Zoroastrianism in Serum or Hospital Plasma Creatinine 0.74 0.70-1.3 [facility] - Good [Mass/volume] mg/dL 0 Zoroastrianism in Serum or Hospital Plasma Glomerular >60 [facility] - Good filtration Zoroastrianism rate/1.73 sq M Hospital predicted among blacks [Volume Rate/Area] in Serum or Plasma by Creatinine-bas ed formula (MDRD) Glomerular >60 [facility] - Good filtration Zoroastrianism rate/1.73 sq M Hospital predicted among non-blacks [Volume Rate/Area] in Serum or Plasma by Creatinine-bas ed formula (MDRD) (NOTE)Estimated GFR is calculated using the Modification of Diet in RenalDisease (MDRD) Study equation, reported for both Americans(GFRAA) and non- Americans (GFRNA), and normalized to 1.7 4k9cebg surface area. The physician must decide which [...] 8.5-10.1 [facility] - Good Serum or Plasma [facility] ital Bilirubin.total 0.3 mg/dL 0.2-1.0 [facility] - Good [Mass/volume] in Serum or [facility] Plasma Alanine aminotransferase 13 U/L 13-61 [facility] - Good [Enzymatic activity/volume] [facility] in Serum or Plasma Aspartate aminotransferase 19 U/L 15-37 [facility] - Good [Enzymatic activity/volume] [facility] in Serum or Plasma by With P-5'-P Alkaline phosphatase 69 U/L 45-117 [facility] - G ood [Enzymatic activity/volume] [facility] in Serum or Plasma Protein [Mass/volume] in 6.7 g/dL 6.4-8.2 [facility] - Good Serum or Plasma [facility] ital Albumin [Mass/volume] in 2.0 g/dL 3.5-4.7 Below low normal [facility] - Good Serum or Plasma by [facility] Bromocresol purple (BCP) dye binding method Globulin [Mass/volume] in 4.7 g/dL 1.7-4.7 [facility] - Good Serum by [facility] Albumin/Globulin [Mass 0.4 0.7-2.8 Below low normal [facility] - Good Ratio] in Serum or Plasma [facility] ID Date Data Source [id number] 12/12/2018 08:56:37 PM EDT [facility] Name Value Range Interpretation Description Data Sup porting Code Source(s) Document(s ) Natriuretic 87 pg/mL 0-100 [facility] - [facility] peptide B Zoroastrianism [Mass/volume] [facility] in Serum or Plasma ID Date Data Source [id number] 12/12/2018 08:31:40 PM EDT [facility] Name Value Range Interpretation Description Data Sup porting Code Source(s) Document(s ) Prothrombin 11.2 sec 9.4-11.1 Above high normal [facility] - Go od time (PT) [facility] INR in 1.1 0.8-1.2 [facility] - Good Platelet poor Zoroastrianism plasma by Hospital Coagulation assay ID Date Data Source [id number] 12/12/2018 08:31:40 PM EDT [facility] - Good [facility] Hospital Name Value Range Interpretation Description Data Sup porting Code Source(s) Document(s ) aPTT in 28.8 SEC 21.0-28. Above high normal [facility] - Good Platelet poor 0 Zoroastrianism plasma by Hospital Coagulation assay Therapeutic Range = 42.0-60.0 secs ID Date Data Source [id number] 12/12/2018 08:27:33 PM EDT [facility] Name Value Range Interpretation Description Data Sup porting Code Source(s) Document(s ) Leukocytes 11.0 4.8-10.6 Above high normal [facility] - [#/volume] in K/uL Good Blood by Zoroastrianism Automated count Hospital Erythrocytes 3.93 4.70-6.0 Below low normal [facility] - [#/volume] in M/uL 0 Good Blood by Zoroastrianism Automated count Hospital Hemoglobin 13.1 14.0-18. Below low normal [facility] - [Mass/volume] in g/dL 0 [facility] Blood [facility] Hematocrit 38.6 % 42.0-52. Below low normal [facility] - [Volume 0 Good Fraction] of Zoroastrianism Blood by Hospital Automated count Erythrocyte mean 98.2 FL 81.0-94. Above high normal [facility] - corpuscular 0 Good volume [Entitic Zoroastrianism volume] by Hospital Automated count Erythrocyte mean 33.3 PG 27.0-35. [facility] - corpuscular 0 Good hemoglobin Zoroastrianism [Entitic mass] Hospital by Automated count Erythrocyte mean 33.9 30.7-37. [facility] - corpuscular g/dL 3 Good hemoglobin Zoroastrianism concentration Hospital [Mass/volume] by Automated count Erythrocyte 15.1 % 11.5-14. Above high normal [facility] - distribution 0 Good width [Ratio] by Zoroastrianism Automated count Hospital Platelets 191 K/uL 130-400 [facility] - [#/volume] in Good Blood by Zoroastrianism Automated count Hospital Platelet mean 9.6 FL 9.2-11.8 [facility] - volume [Entitic Good volume] in Blood Zoroastrianism by Automated Hospital count Segmented 88 % 48.0-72. Above high normal [facility] - neutrophils/100 0 Good leukocytes in Zoroastrianism Blood [facility] Lymphocytes/100 7 % 18.0-40. Below low normal [facility] - leukocytes in 0 Good Blood Zoroastrianism Hospital Monocytes/100 5 % 2.0-12.0 [facility] - leukocytes in [facility] Eosinophils/100 0 % 0.0-7.0 [facility] - leukocytes in [facility] Basophils/100 0 % 0.0-3.0 [facility] - leukocytes in [facility] Segmented 9.5 K/UL 1.5-6.6 Above high normal [facility] - neutrophils Good [#/volume] in [facility] Lymphocytes 0.8 K/UL 1.5-3.5 Below low normal [facility] - [#/volume] in [facility] Monocytes 0.6 K/UL 0.0-1.0 [facility] - [#/volume] in [facility] Eosinophils 0.0 K/UL 0.0-0.7 [facility] - [#/volume] in [facility] Basophils 0.0 K/UL 0.0-0.1 [facility] - [#/volume] in [facility] Differential [facility] - cell count [facility] Immature 1 % 0.0-2.0 [facility] - granulocytes/100 [facility] leukocytes in [facility] Automated count ID Date Data Source [id number] 12/12/2018 07:31:45 PM EDT [facility] Name Value Range Interpretation Description Data Sup porting Code Source(s) Document(s ) Glucose 195 MG/DL 65-110 Above high normal [facility] [Mass/volume] [facility] Automated test strip ID Date Data Source [id number] 12/12/2018 07:12:01 PM EDT [facility] Pt BIBA from [place] for lethargy and fever Name Value Range Interpretation Code Description Data Harriett rce(s) Supporting Document(s ) ID Date Data Source [id number] 12/09/2018 03:11:12 PM EDT [facility] Physician Discharge SummaryPatient ID:Lina [id number] date: 11/07/2018Discharge date: 11/27/2018 Discharge Diagnoses: Principal Diagnosis <principal problem not specified> Active Problems: COPD (chronic obstructive pul monary disease) ([facility]) (11/08/2018) Acute respiratory distress (11/08/2018) Pneumo freddy (11/08/2018) COPD exacerbation ([facility]) (11/08/2018) Sepsis POAMetabolic Acidosis Bilateral aspiration [...] Name Value Range Interpretation Code Description Data [facility] rce(s) Supporting Document(s ) ID Date Data Source [id number] 11/27/2018 08:50:08 PM EDT [facility] called requesting informatio n on discharged patient. Name Value Range Interpretation Code Description Data Harriett rce(s) Supporting Document(s ) ID Date Data Source [id number] 11/27/2018 05:00:32 PM EDT [facility] Progress NotePatient: Evelio Abrahamalexandratammy Sex: male DOA: 11/07/2018Date of : 1950 Age: 68 y.o. :[id number]:Reyes Carlin is 68 y.o. male with severe [...] donna dence of consolidation oreffusion.Medications reviewedCurrent Facility-Administered [place] dicationsMedication Dose Route Frequency albuterol-ipratropium (DUO-NEB) 2.5 MG-0 .5 MG/3 ML 3 mL Nebulization Q6H RT methylPREDNISolone (PF) (SOLU-MEDROL) in jection 20 mg 20 mg IntraVENous Q12H LORazepam (ATIVAN) injection 0.5 mg 0.5 mg IntraVENous Q12H PRN 0.9% sodium chloride 1,000 mL with mvi, adult no.4 w ith vit K 10 mL, ekxveamm380 mg, folic acid 1 mg infusion IntraVENous [...] P OA COPD (chronic obstructive pulmonary disease) ([facility]) ICD-10-CM: J44.9ICD-9-CM: 496 11/08/2018 Unknown Acute respiratory distress ICD-10-CM: R06.03ICD-9-CM: 518. 82 11/08/2018 Unknown Pneumonia ICD-10-CM: J18.9ICD-9-CM: 486 11/08/2018 Unknown [place] PD exacerbation ([facility]) ICD-10-CM: J44.1ICD-9-CM: 491.21 11/08/2018 Unknown Assessment:Acute [...] , who is request ngt insertio n fornutrition.Lliiane Gonzalez 2018Time: 9:34 PM Name Value Range Interpretation Code Description Data Harriett rce(s) Supporting Document(s ) ID Date Data Source [id number] 11/27/2018 03:56:32 PM EDT [facility] Patient connected to prevena wound vac a s ordered. patient will be dischargedwith urinary cath as per Dr. Hills Name Value Range Interpretation Code Description Data Harriett rce(s) Supporting Document(s ) ID Date Data Source [id number] 11/27/2018 02:19:00 PM EDT [facility] PULMONARY/ CCM- Consult NotePatient: Ivelisse Carlin [...] 11/27/18 0659 11/27/18 0700 - 11/28/18 0659Shift [id number] 1673-3640 24 Hour To krystian [id number] 2527-8524 24 Hour TotalINTAKEI.V.(mL/kg/hr) 50(0.1) 50(0.1 ) 100(0.1) Volume (valproate (DEPACON) 250 mg in 0.9% sodium chloride 50 mL IVPB) 5 0 93609WG/GT 1310 1125 2435 Water Flush Volume (mL) [...] Name Value Range Interpretation Code Description Data [facility] rce(s) Supporting Document(s ) ID Date Data Source [id number] 11/27/2018 02:07:14 PM EDT [facility] Care Management InterventionsPCP Verifie d by CM: YesMode of Transport at Discharge: S([facility] 4 pm)Transition of Care Consult (CM Consult): Discharge PlanningMyChart Signup: NoDischarge Dura ble Medical Equipment: NoPhysical Therapy Consult: NoOccupational Therapy Consult: NoSpeech Therapy Consult: NoCurrent Support Network: Nursing Facility(Only)Co nfirm Follow Up Transport: FamilyPlan discussed with Pt/Family/Caregiver: YesF reedom of Choice Offered: YesVeteran Resource Information Provided?: RefusedDischarge LocationDischarge Placement: [facility] facility(Only)Case Management Dis charge Note:Pt has been medically cleared and scheduled for discharge to [facility] at 4 pm.Pt sister Michell [phone] is aware and in agree ment. MD and RN are aware.Liaison is aware and in agreement. CM remains available f or any furtherdischarge needs. Updated YUAN faxed to Only Name Value Range Interpretation Code Description Data Harriett rce(s) Supporting Document(s ) ID Date Data Source [id number] 11/27/2018 01:57:53 PM EDT [facility] YUAN updated with Vac instructions. Name Value Range Interpretation Code Description Data Harriett rce(s) Supporting Document(s ) ID Date Data Source [id number] 11/27/2018 12:50:21 PM EDT [facility] ID Progress Note11/27/2018Subjective:Awak e non verbalAfebrileWbc trending down..Unable to provide any historyObjective:Vitals:P atient Vitals for the past 24 hrs: BP Temp Pulse Resp SpO2 Ujwwmn19/15/19 0801 - - - - 92 % [...] Supporting Document(s ) ID Date Data Source [id number] 11/27/2018 11:47:44 AM EDT [facility] Progress NotePatient: Evelio Carlin SSN: [id number] of : 1950 Age: 68 y.o. Sex: [...] & OLab Data Reviewed:CBC w/Diff Recent Labs 80209STG 11.7* 13.7*HGB 13.5* 14.9HCT 39.4* 42.8MCV 97.0* [...] (HCC) ICD-10-CM: J44.9ICD-9-CM: 496 11/08/2018 Unknown [place] respiratory distress ICD-10-CM: R06.03ICD-9-CM: 518.82 11/08/2018 Unknow n Pneumonia ICD-10-CM: J18.9ICD-9-CM: 486 11/08/2018 Unknown COPD exacerbation (HCC ) ICD-10-CM: J44.1ICD-9-CM: 491.21 11/08/2018 UnknownPlan/Recommendations/Medical Deci elio Making:Steroids have been dc'd,IV antibiotics have been dc'dHave instructe d today's nurse to change canister to the Prevena canister ifpatient is transferre d to OnlyWill make arrangements to see patient in [facility] on Saturday to jigna ve Prevenaand examine the incisionSigned By: Letty Kaye MD November 27, 2018 Name Value Range Interpretation Code Description Data [facility] rce(s) Supporting Document(s ) ID Date Data Source [id number] 11/27/2018 07:59:47 AM EDT [facility] Bedside and Verbal shift change report g iven to Bernarda Parada RN (oncoming nurse)by Lelo Parks RN (offgoing nurse). Report included the following information SBAR, Kardex, MARand Recent Results. Name Value Range Interpretation Code Description Data [facility] rce(s) Supporting Document(s ) ID Date Data Source [id number] 11/27/2018 07:17:42 AM EDT [facility] [place] Value Range Interpretation Description Data Sup [...] non- Americans (GFRNA), and normalized to 1.7 1l4iwrx surface area. The physician must decide which [...] Serum or 9.9 mg/dL 8.5-10.1 [facility] - [facility] Hospital Plasma ID Date Data Source [id number] 11/27/2018 07:13:17 AM EDT [facility] Name Value Range Interpretation Description Data Sup porting Code Source(s) Document(s ) Magnesium 2.0 mg/dL 1.6-2.6 [facility] - [Mass/volume] Community in Serum or Hospital Plasma ID Date Data Source [id number] 11/27/2018 06:39:47 AM EDT [facility] [place] Value Range Interpretation Description Data Sup porting Code Source(s) Document(s ) Leukocytes 11.7 4.8-10.6 Above high normal [facility] - [#/volume] in K/uL [facility] Blood by Hospital Automated count Erythrocytes 4.06 4.70-6.0 Below low normal [facility] - [#/volume] in M/uL 0 Community Blood by Hospital Automated count Hemoglobin 13.5 14.0-18. Below low normal [facility] - [Mass/volume] in g/dL 0 [facility] Blood [facility] Hematocrit 39.4 % 42.0-52. Below low normal [facility] - [Volume 0 Community Fraction] of Hospital Blood by Automated count Erythrocyte mean 97.0 FL 81.0-94. Above high normal [facility] - corpuscular 0 [facility] volume [Entitic Hospital volume] by Automated count Erythrocyte mean 33.3 PG 27.0-35. [facility] - corpuscular 0 [facility] hemoglobin Hospital [Entitic mass] by Automated count Erythrocyte mean 34.3 30.7-37. [facility] - corpuscular g/dL 3 [facility] hemoglobin Hospital concentration [Mass/volume] by Automated count Erythrocyte 15.1 % 11.5-14. Above high normal [facility] - distribution 0 [facility] width [Ratio] by Hospital Automated count Platelets 234 K/uL 130-400 [facility] - [#/volume] in [facility] Blood by Hospital Automated count Platelet mean 9.0 FL 9.2-11.8 Below low normal [facility] - volume [Entitic Community volume] in Blood Hospital by Automated count Segmented 68 % 48.0-72. [facility] - neutrophils/100 0 Community leukocytes in Hospital Blood Lymphocytes/100 25 % 18.0-40. [facility] - leukocytes in 0 [facility] Blood Hospital Monocytes/100 5 % 2.0-12.0 [facility] - leukocytes in [facility] Blood Hospital Eosinophils/100 2 % 0.0-7.0 [facility] - leukocytes in [facility] Blood Hospital Basophils/100 0 % 0.0-3.0 [facility] - leukocytes in [facility] Hospital Segmented 7.9 K/UL 1.5-6.6 Above high normal [facility] - neutrophils Community [#/volume] in Hospital Blood Lymphocytes 2.9 K/UL 1.5-3.5 [facility] - [#/volume] in [facility] Blood Hospital Monocytes 0.6 K/UL 0.0-1.0 [facility] - [#/volume] in [facility] Blood Hospital Eosinophils 0.2 K/UL 0.0-0.7 [facility] - [#/volume] in [facility] Blood Hospital Basophils 0.0 K/UL 0.0-0.1 [facility] - [#/volume] in [facility] Differential [facility] - cell count [facility] Immature 1 % 0.0-2.0 [facility] - granulocytes/100 Community leukocytes in Hospital Blood by Automated count ID Date Data Source [id number] 11/26/2018 07:40:31 PM EDT [facility] Progress NoteMID-COUNTY PULMONARY ASSOC. ,P.C.Krystian Monae MD., F.CGualbertoC.P.Stella Hamilton MD., F.C.C.P. [address] [place] [address] [place], [place] [id number] [phone]: Evelio Carlin Sex: male DOA: 11/07/2018Da te of : 1950 Age: 68 y.o. LOS: LOS: 18 daysSubjective:Mr. Maximiliano mata is a 68 y.o. year old male who is being seen for PNEUMONIA ANDPL . EFFUSI ONHE HAVE COMPLETED COURSE OF ANTIBIOTICS .WBC = 13. 5.Objective:Vital Signs:Patie nt Vitals for the past 24 hrs: BP Temp Pulse Resp VkV22711/26/18 1607 102/61 97.3 F (3 6.3 C) [...] Procedure Component Value Units Date/Time CULTURE, URINE [[id number]] Collected: 11/20/18 0900 Order Status: Completed Specimen: Urin e from [facility] Specimen Updated:11/22/18741 Special Requests: NO SPECIAL REQUESTS C ulture result: NO GROWTH 2 DAYS CULTURE, BLOOD [[id number]] Collected: 11/07/18 2 000 Order Status: Completed Specimen: Blood Updated: 11/12/18640 Special Request s: NO SPECIAL REQUESTS Culture result: NO GROWTH 5 DAYS CULTURE, BLOOD [[id number]] Collected: 11/07/182009 Order Status: Completed Specimen: Blood Updated: 640 Special Requests: NO SPECIAL REQUESTS Culture result: NO GROWTH 5 DA YS STREP PNEUMO AG, URINE [[id number]] Collected: 11/09/18 07 Order Status: Completed Specimen: [...] NOCHROMATOGRAPHIC MEMBRANE ASSAY LEGIONELLA PNEUMOPHILA AG, URINE [[id number]] [facility] mikel: 11/08/18 1145 Order Status: Completed Specimen: [...] test. Method IMMUNOCHROMATOGRAPHIC MEMBRANE ASSAY CULTURE, URINE [[id number]] Collect ed: 11/07/18 1930 Order Status: Canceled Specimen: Urine from Clean catchImages: @[email or web address]@Xr Chest Sngl VResult Date: 11/25/2018AP portable film of the chest c linical indication pneumonia Study is [facility]. Study demonstrates a left pleuraleffusion [...] MG-0.5 MG/3 ML 3 mL Nebulization Q4H PA N cinacalcet (SENSIPAR) tablet 60 mg 60 mg Oral DAILY budesonide (PULMICORT) 500 m cg/2 ml nebulizer suspension 500 mcg NebulizationBID RTActive Problems: COPD (chronic obstructive pulmonary disease) ([facility]) (11/08/2018) Acute respiratory dis tress (11/08/2018) Pneumonia (11/08/2018) COPD exacerbation ([facility]) (11/08/2018)Asses sment:COPD (chronic obstructive pulmonary disease) ([facility]) (11/08/2018) Acute respi ratory distress (11/08/2018) Pneumonia (11/08/2018) COPD exacerbation ([facility]) () Acute resp failure combined,IMPROVING pneumonia [...] Supporting Document(s ) ID Date Data Source [id number] 11/26/2018 07:37:02 PM EDT [facility] Bedside and Verbal shift change report g iven to Lelo RN (oncoming nurse) Israel Alamo RN (offgoing nurse). Report incl uded the following information SBAR, Kardex,Intake/Output, MAR and Recent Res ults. Information regarding wound vac endorsedto the next shift. Name Value Range Interpretation Code Description Data Harriett rce(s) Supporting Document(s ) ID Date Data Source [id number] 11/26/2018 03:35:41 PM EDT [facility] ID Progress Note11/26/2018Subjective:Awak e non verbalAfebrileWbc still elevated..Unable to provide any historyO bjective:Vitals:Patient Vitals for the past 24 hrs: BP Temp Pulse Resp QjW92711/26/18 0802 107/68 97.1 F (36.2 C) 68 [...] Supporting Document(s ) ID Date Data Source [id number] 11/26/2018 08:50:01 AM EDT [facility] Progress NotePatient: Evelio Carlin SSN: [id number] of : 1950 Age: 68 y.o. Sex: [...] HEART: regular rate and rhy thm, S1, H5sgwqnq, no murmur, click, rub or gallop, ABDOMEN: [...] (HCC) ICD-10-CM: J44.9ICD-9-CM: 496 11/08/2018 Unknown [place] respiratory distress ICD-10-CM: R06.03ICD-9-CM: 518.82 11/08/2018 Unknow [...] weekStill on IV antibioticsCan be transferred to [place] from surgical viewpoinT if medically ready.However , if not, would benefit fr om closer monitoring of wound day to day untilVac is discontinued.Signed By: Arik Kaye MD November 26, 2018 Name Value Range Interpretation Code Description Data Harriett rce(s) Supporting Document(s ) ID Date Data Source [id number] 11/26/2018 07:16:42 AM EDT [facility] Name Value Range Interpretation Description Data Sup porting Code Source(s) Document(s ) Magnesium 1.8 mg/dL 1.6-2.6 [facility] - [Mass/volume] Community in Serum or Hospital Plasma ID Date Data Source [id number] 11/25/2018 11:36:22 PM EDT [facility] Name Value Range Interpretation Description Data Sup [...] peak ortrough levels. ID Date Data Source [id number] 11/25/2018 07:37:57 PM EDT [facility] Bedside and Verbal shift change report g ankit to NANCY Lind (oncoming nurse) byNehemias Alamo RN (offgoing nurse). Report incl uded the following information SBAR, Kardex,Intake/Output, MAR and Recent Res ults. Name Value Range Interpretation Code Description Data Harriett rce(s) Supporting Document(s ) ID Date Data Source [id number] 11/25/2018 06:10:39 PM EDT [facility] ID Progress Note11/25/2018Subjective:Awak e non verbalAfebrileWbc still elevated..Unable to provide any historyO bjective:Vitals:Patient Vitals for the past 24 hrs: BP Temp Pulse Resp OpY56111/25/18 1601 108/64 97.2 F (36.2 C) 100 [...] Supporting Document(s ) ID Date Data Source [id number] 11/25/2018 01:52:08 PM EDT [facility] Patient with Prevena negative dressing t [...] Supporting Document(s ) ID Date Data Source [id number] 11/25/2018 01:09:03 PM EDT [facility] PULMONARY/ CCM- Consult NotePatient: Ivelisse Carlin [...] 2.5 MG-0.5 MG/3 ML, 3 mL, Nebulization, Q6CAOFE, Stella Hamilton M D, 3 mL at [...] Output:Date 699 - 11/25/1865811/25/18699 - 11/26/18 0659Shift 2044-6691 7179-2767 2 4 Hour Total 8174-2433 9861-1488 24 Hour TotalINTAKEP.O. 0 0 P.O. 0 [...] Bibasilar subsegmentalatelectasis. Report Electron ically Signed By: Pawle Zafar M.D. -11/08/2018 12:40 AMXr Chest PortResult [...] Supporting Document(s ) ID Date Data Source [id number] 11/25/2018 11:19:34 AM EDT [facility] [place] Value Range Interpretation Description Data Sup porting Code Source(s) Document(s ) Sodium 142 136-145 [facility] - [Moles/volume] in mmol/L [facility] Serum or Plasma Hospital Potassium 3.4 3.5-5.1 Below low normal [facility] - [Moles/volume] in mmol/L [facility] Serum or Plasma Hospital Chloride 99 98-107 [facility] - [Moles/volume] in mmol/L [facility] Serum or Plasma Hospital Carbon dioxide, 38 21-32 Above high [facility] - total mmol/L normal [facility] [Moles/volume] in Hospital Serum or Plasma Anion gap in Serum 8 10-20 Below low normal [facility] - or Plasma mmol/L [facility] Glucose 102 74-106 [facility] - [Mass/volume] in mg/dL [facility] Serum or Plasma Hospital Urea nitrogen 11 7-18 [facility] - [Mass/volume] in mg/dL [facility] Serum or Plasma Hospital Creatinine 0.41 0.70-1. Below low normal [facility] - [Mass/volume] in mg/dL 30 [facility] Serum or Plasma Hospital Glomerular >60 [facility] Serum [facility] Plasma [facility] Bilirubin.total 0.6 0.2-1.0 [facility] - [Mass/volume] in mg/dL [facility] Serum or Plasma Hospital Alanine 25 U/L 13-61 [facility] - aminotransferase Community [Enzymatic Hospital activity/volume] in Serum or Plasma Aspartate 15 U/L 15-37 [facility] - aminotransferase Community [Enzymatic Hospital activity/volume] in Serum or Plasma by With P-5'-P Alkaline 99 U/L 45-117 [facility] - phosphatase Community [Enzymatic Hospital activity/volume] in Serum or Plasma Protein 5.9 6.4-8.2 Below low normal [facility] - [Mass/volume] in g/dL [facility] Serum or Plasma [facility] Albumin 2.7 3.5-4.7 Below low normal [facility] - [Mass/volume] in g/dL [facility] Serum or Plasma by [facility] Bromocresol purple (BCP) dye binding method Globulin 3.2 1.7-4.7 [facility] - [Mass/volume] in g/dL [facility] Serum by [facility] calculation Albumin/Globulin 0.9 0.7-2.8 [facility] - [Mass Ratio] in [facility] Serum or Plasma Hospital ID Date Data Source [id number] 11/25/2018 11:19:34 AM EDT [facility] Name Value Range Interpretation Description Data Sup porting Code Source(s) Document(s ) Magnesium 1.9 mg/dL 1.6-2.6 [facility] - [Mass/volume] Community in Serum or Hospital Plasma ID Date Data Source [id number] 11/25/2018 11:10:21 AM EDT [facility] Name Value Range Interpretation Description Data Sup porting Code Source(s) Document(s ) Leukocytes 13.7 4.8-10.6 Above high normal [facility] - [#/volume] in K/uL [facility] Blood by Hospital Automated count Erythrocytes 4.45 4.70-6.0 Below low normal [facility] - [#/volume] in M/uL 0 Community Blood by Hospital Automated count Hemoglobin 14.9 14.0-18. [facility] - [Mass/volume] in g/dL 0 [facility] Blood Hospital Hematocrit 42.8 % 42.0-52. [facility] - [Volume 0 Community Fraction] of Hospital Blood by Automated count Erythrocyte mean 96.2 FL 81.0-94. Above high normal [facility] - corpuscular 0 Community volume [Entitic Hospital volume] by Automated count Erythrocyte mean 33.5 PG 27.0-35. [facility] - corpuscular 0 [facility] Hospital [Entitic mass] by Automated count Erythrocyte mean 34.8 30.7-37. [facility] - corpuscular g/dL 3 [facility] hemoglobin Hospital concentration [Mass/volume] by Automated count Erythrocyte 14.7 % 11.5-14. Above high normal [facility] - distribution 0 Community width [Ratio] by Hospital Automated count Platelets 206 K/uL 130-400 [facility] - [#/volume] in [facility] Blood by Hospital Automated count Platelet mean 9.3 FL 9.2-11.8 [facility] - volume [Entitic Community volume] in Blood Hospital by Automated count Segmented 69 % 48.0-72. [facility] - neutrophils/100 0 Community leukocytes in Hospital Blood Lymphocytes/100 24 % 18.0-40. [facility] - leukocytes in 0 [facility] Blood Hospital Monocytes/100 5 % 2.0-12.0 [facility] - leukocytes in [facility] Blood Hospital Eosinophils/100 2 % 0.0-7.0 [facility] - leukocytes in [facility] Blood Hospital Basophils/100 0 % 0.0-3.0 [facility] - leukocytes in [facility] Blood [facility] Segmented 9.2 K/UL 1.5-6.6 Above high normal [facility] - neutrophils Community [#/volume] in Hospital Blood Lymphocytes 3.3 K/UL 1.5-3.5 [facility] - [#/volume] in [facility] Blood Hospital Monocytes 0.7 K/UL 0.0-1.0 [facility] - [#/volume] in [facility] Blood [facility] Eosinophils 0.3 K/UL 0.0-0.7 [facility] - [#/volume] in [facility] Blood [facility] Basophils 0.0 K/UL 0.0-0.1 [facility] - [#/volume] in [facility] Differential [facility] - cell count [facility] Immature 1 % 0.0-2.0 [facility] - granulocytes/100 Community leukocytes in Hospital Blood by Automated count ID Date Data Source [id number] 11/25/2018 09:09:04 AM EDT [facility] GITolerating feeds at goal rateAbdomen i s soft and nontenderWound being managed by Dr. Rodriguez water changed from every 3 hours to every 4 hours as patient is stillgetting IVSS fluidPlease call as ne eded Name Value Range Interpretation Code Description Data Harriett rce(s) Supporting Document(s ) ID Date Data Source [id number] 11/25/2018 09:08:41 AM EDT [facility] Progress NotePatient: Evelio Carlin SSN: [id number] of : 1950 Age: 68 y.o. Sex: [...] Noted POA COPD (chronic obstructive pulmonary disease) ([facility]) ICD-10-CM: J44.9ICD-9-CM: 496 11/08/2018 Unknown Acute [...] drainage.Still on steroidsSigned By: Letty Kaye MD [facility] 2018 Name Value Range Interpretation Code Description Data Harriett rce(s) Supporting Document(s ) ID Date Data Source [id number] 11/25/2018 09:05:13 AM EDT [facility] AP portable film of the chest [...] Supporting Document(s ) ID Date Data Source [id number] 11/25/2018 09:09:00 AM EDT [facility] Name Value Range Interpretation Description Data Sup porting Code Source(s) Document(s ) pH of Arterial 7.50 7.35-7.4 Above high normal [facility] - blood 5 [facility] Hospital Carbon dioxide 53 mmHg 32-48 Above high normal [facility] - [Partial Community pressure] in Hospital Arterial blood Oxygen 69 mmHg 83-108 Below low normal [facility] - [Partial Community pressure] in Hospital Arterial blood Carbon 43 19-24 Above high normal [facility] - dioxide, total mmol/L Community [Moles/volume] Hospital in Arterial blood Bicarbonate 41 21-28 Above upper panic [facility] - [Moles/volume] mmol/L limits [facility] in Arterial Hospital blood Oxygen 98 % 94-98 [facility] - saturation in [facility] Blood Hospital Base excess in 15.6 0-3 Above high normal [facility] - Arterial blood mmol/L Community by calculation Hospital Body site [facility] - [facility] Hospital Arterial [facility] - patency Wrist [facility] artery --pre Hospital arterial puncture NASAL [id number] TO AND READ BACK BYJEF ALAMO RN at 0908 by SAUL STOUT [id number] ID Date Data Source [id number] 11/25/2018 09:03:28 AM EDT [facility] Received telephone order from Dr. Hills to d/c cardiac monitoring. Name Value Range Interpretation Code Description Data [facility] rce(s) Supporting Document(s ) ID Date Data Source [id number] 11/25/2018 07:41:30 AM EDT [facility] Bedside and Verbal shift change report carol Carballo RN (oncoming nurse) Shawn PITTS (offgoing nurse). Report included the following information SBAR,Kardex, Intake/Output, MAR, Recent Results and Med Rec Status. Name Value Range Interpretation Code Description Data [facility] rce(s) Supporting Document(s ) ID Date Data Source [id number] 11/24/2018 07:07:19 PM EDT [facility] Bedside and Verbal shift change report g iven to Rojelio Strickland RN (oncomingnurse) by Yuki Ohara RN (offgoing [facility]). Report included the following information SBAR,Intake/Output, MAR, Rec ent Results and Cardiac Rhythm NSR. Name Value Range Interpretation Code Description Data Harriett rce(s) Supporting Document(s ) ID Date Data Source [id number] 11/24/2018 04:13:49 PM EDT [facility] Asked to evaluate this patient for [...] Name Value Range Interpretation Code Description Data [facility] rce(s) Supporting Document(s ) ID Date Data Source [id number] 11/24/2018 03:53:26 PM EDT [facility] NUTRITION FOLLOW UPRECOMMENDATI ON:Continue Osmolite 1.5 [...] Supporting Document(s ) ID Date Data Source [id number] 11/24/2018 03:53:15 PM EDT [facility] Problem: Nutrition DeficitGoal: *Optimiz e nutritional statusDescriptionConsumption of >50% meals/snacks/supplements daily wit hin 3-7 daysOutcome: Progressing Towards GoalCurrent EN meeting estimated needs.S uggest continuing Osmolite 1.5 @55 mL/hr with 125 mL free water q 3hr. Name Value Range Interpretation Code Description Data Harriett rce(s) Supporting Document(s ) ID Date Data Source [id number] 11/24/2018 02:02:44 PM EDT [facility] ID Progress Note11/24/2018Subjective:Awak e non verbalAfebrileWbc still elevated..Unable to provide any historyO bjective:Vitals:Patient Vitals for the past 24 hrs: BP Temp Pulse Resp SpO2 [id number] 1124 128/64 98 F (36.7 C) 80 [...] Supporting Document(s ) ID Date Data Source [id number] 11/24/2018 01:48:07 PM EDT [facility] Progress NoteMID[facility] ,[facility].Krystian Monae MD., F.C.C.P.Stella Hamilton MD., F.C.C.P. [address] [place] [id number] [place] [address] [phone]: Evelio Carlin Sex: male DOA: 11/07/2018Da te of : 1950 Age: 68 y.o. LOS: LOS: 16 daysSubjective:Mr. Maximiliano mata is a 68 y.o. year old male who is being seen for PNEUMONIA ANDCOPD , HE IS MORE AWAKE AND ALERT TODAY .Objective:Vital Signs:Patient Vitals fo r the past 24 hrs: BP Temp Pulse Resp SpO2 Ujsnwx55/12/19 1124 128/64 98 F (36.7 C) 80 [...] Procedure Component Value Units Date/Time CULTURE, URINE [[id number]] Col lected: 11/20/18 09 Order Status: Completed Specimen: Urine from [facility] Sp ecimen Updated:11/22/18741 Special Requests: NO SPECIAL REQUESTS Culture r esult: NO GROWTH 2 DAYS CULTURE, BLOOD [[id number]] Collected: 11/07/181999 Or bassem Status: Completed Specimen: Blood Updated: 11/12/18640 Special Request s: NO SPECIAL REQUESTS Culture result: NO GROWTH 5 DAYS CULTURE, BLOOD [[id number]] Collected: 11/07/182009 Order Status: Completed Specimen: Blood Updated: 640 Special Requests: NO SPECIAL REQUESTS Culture result: NO GROWTH 5 DA YS STREP PNEUMO AG, URINE [[id number]] Collected: 11/09/18699 Order Status: Completed Specimen: Other [...] NOCHROMATOGRAPHIC MEMBRANE ASSAY LEGIONELLA PNEUMOPHILA AG, URINE [[id number]] [facility] mikel: 11/08/18 1145 Order Status: Completed Specimen: [...] test. Method IMMUNOCHROMATOGRAPHIC MEMBRANE ASSAY CULTURE, URINE [[id number]] Collect ed: 11/07/18 193 Order Status: Canceled [...] Problems: COPD (chronic obstru ctive pulmonary disease) ([facility]) (11/08/2018) Acute respiratory distress (11/08/2018) Pneumonia (11/08/2018) COPD exacerbation ([facility]) (11/08/2018)Assessment:COPD (chroni c obstructive pulmonary disease) ([facility]) (11/08/2018) Acute respiratory distress (11/08/2018) Pneumonia (11/08/2018) COPD exacerbation ([facility]) (11/08/2018) Acute r david failure combined,IMPROVING [...] Supporting Document(s ) ID Date Data Source [id number] 11/24/2018 10:38:34 AM EDT [facility] Prevena neg pressure dressing applied.Wo und care nurse notified Name Value Range Interpretation Code Description Data Harriett rce(s) Supporting Document(s ) ID Date Data Source [id number] 11/24/2018 09:35:20 AM EDT [facility] Progress NotePatient: Evelio Carlin SSN: [id number] of : 1950 Age: 68 y.o. Sex: [...] Supporting Document(s ) ID Date Data Source [id number] 11/24/2018 09:05:56 AM EDT [facility] GIPatient seen and examined. He is danielle [...] Supporting Document(s ) ID Date Data Source [id number] 11/24/2018 09:21:31 AM EDT [facility] [place] Value Range Interpretation Description Data Sup porting Code Source(s) Document(s ) Sodium 139 136-145 [facility] - [Moles/volume] in mmol/L [facility] Serum or Plasma Hospital Potassium 3.4 3.5-5.1 Below low normal [facility] - [Moles/volume] in mmol/L [facility] Serum or Plasma Hospital Chloride 98 98-107 [facility] - [Moles/volume] in mmol/L [facility] Serum or Plasma Hospital Carbon dioxide, 36 21-32 Above high [facility] - total mmol/L normal [facility] [Moles/volume] in Hospital Serum or Plasma Anion gap in Serum 8 10-20 Below low normal [facility] - or Plasma mmol/L [facility] Hospital Glucose 154 74-106 Above high [facility] - [Mass/volume] in mg/dL normal [facility] Serum or Plasma Hospital Urea nitrogen 9 mg/dL 7-18 [facility] - [Mass/volume] in [facility] Serum or Plasma Hospital Creatinine 0.31 0.70-1. [...] [facility] Serum or Plasma [facility] Bilirubin.total 0.6 0.2-1.0 [facility] - [Mass/volume] in mg/dL [facility] Serum or Plasma Hospital Alanine 25 U/L [...] low normal [facility] - [Mass/volume] in g/dL [facility] Serum or Plasma [facility] Albumin 2.7 3.5-4.7 Below low normal [facility] - [Mass/volume] in g/dL [facility] Serum or Plasma by [facility] Bromocresol purple (BCP) dye binding method Globulin 3.2 1.7-4.7 [facility] - [Mass/volume] in g/dL [facility] Serum by [facility] calculation Albumin/Globulin 0.8 0.7-2.8 [facility] - [Mass Ratio] in [facility] Serum or Plasma Hospital ID Date Data Source [id number] 11/24/2018 09:21:31 AM EDT [facility] Name Value Range Interpretation Description Data Sup porting Code Source(s) Document(s ) Magnesium 1.8 mg/dL 1.6-2.6 [facility] - [Mass/volume] Community in Serum or [facility] Plasma ID Date Data Source [id number] 11/24/2018 09:06:27 AM EDT [facility] Name Value Range Interpretation Description Data Sup porting Code Source(s) Document(s ) Leukocytes 13.8 4.8-10.6 Above high normal [facility] - [#/volume] in K/uL [facility] Blood by Hospital Automated count Erythrocytes 4.19 4.70-6.0 Below low normal [facility] - [#/volume] in M/uL 0 [facility] Blood by Hospital Automated count Hemoglobin 13.7 14.0-18. Below low normal [facility] - [Mass/volume] in g/dL 0 [facility] Blood [facility] Hematocrit 39.4 % 42.0-52. Below low normal [facility] - [Volume 0 Community Fraction] of Hospital Blood by Automated count Erythrocyte mean 94.0 FL 81.0-94. [facility] - corpuscular 0 Community volume [Entitic Hospital volume] by Automated count Erythrocyte mean 32.7 PG 27.0-35. [facility] - corpuscular 0 [facility] hemoglobin Hospital [Entitic mass] by Automated count Erythrocyte mean 34.8 30.7-37. [facility] - corpuscular g/dL 3 [facility] hemoglobin Hospital concentration [Mass/volume] by Automated count Erythrocyte 14.3 % 11.5-14. Above high normal [facility] - distribution 0 Community width [Ratio] by Hospital Automated count Platelets 198 K/uL 130-400 [facility] - [#/volume] in [facility] Blood by Hospital Automated count Platelet mean 9.4 FL 9.2-11.8 [facility] - volume [Entitic Community volume] in Blood Hospital by Automated count Segmented 87 % 48.0-72. Above high normal [facility] - neutrophils/100 0 Community leukocytes in Hospital Blood Lymphocytes/100 8 % 18.0-40. Below low normal [facility] - leukocytes in 0 [facility] Blood Hospital Monocytes/100 5 % 2.0-12.0 [facility] - leukocytes in [facility] Blood [facility] Eosinophils/100 0 % 0.0-7.0 [facility] - leukocytes in [facility] Blood Hospital Basophils/100 0 % 0.0-3.0 [facility] - leukocytes in [facility] Blood [facility] Segmented 11.9 1.5-6.6 Above high normal [facility] - neutrophils K/UL Community [#/volume] in Hospital Blood Lymphocytes 1.1 K/UL 1.5-3.5 Below low normal [facility] - [#/volume] in [facility] Blood Hospital Monocytes 0.7 K/UL 0.0-1.0 [facility] - [#/volume] in [facility] Blood Hospital Eosinophils 0.0 K/UL 0.0-0.7 [facility] - [#/volume] in [facility] Blood [facility] Basophils 0.0 K/UL 0.0-0.1 [facility] - [#/volume] in [facility] Differential [facility] - cell count [facility] Immature 1 % 0.0-2.0 [facility] - granulocytes/100 Community leukocytes in Hospital Blood by Automated count ID Date Data Source [id number] 11/24/2018 07:05:04 AM EDT [facility] Bedside shift change report given to Teresa Ohara RN (oncoming nurse) Be Bello RN (offgoing nurse). Report incl uded the following informationSBAR, Kardex, Procedure Summary, Intake/Output and Car diac Rhythm NSr. Name Value Range Interpretation Code Description Data Harriett rce(s) Supporting Document(s ) ID Date Data Source [id number] 11/23/2018 07:31:37 PM EDT [facility] Bedside and Verbal shift change report [...] Supporting Document(s ) ID Date Data Source [id number] 11/23/2018 03:24:33 PM EDT [facility] PULMONARY/ CCM- Consult NotePatient: Ivelisse Carlin [...] adult no.4 with vit K 10 mL, [id number] mg, folic acid 1 mg infusion, , [...] Output:Date 699 - 11/23/1865811/23/18699 - 11/24/18 0659Shift 6581-2003 1618-2498 2 4 Hour Total 6989-5372 6568-1986 24 Hour TotalINTAKEI.V.(mL/kg/hr) 600(0.9) 600( 0.4) Volume [...] images were obtained and reviewed on a [employer] d viewingworkstation and directly supervised. Contrast: A [...] Problem s: COPD (chronic obstructive pulmonary disease) ([facility]) (11/08/2018) Acute respir atory distress (11/08/2018) Pneumonia (11/08/2018) COPD exacerbation ([facility]) () Acute resp failure combined, pneumonia [...] Supporting Document(s ) ID Date Data Source [id number] 11/23/2018 02:53:10 PM EDT [facility] Progress NotePatient: Evelio Carlin SSN: [id number] of : 1950 Age: 68 y.o. Sex: [...] Supporting Document(s ) ID Date Data Source [id number] 11/23/2018 02:30:16 PM EDT [facility] ID Progress Note11/23/2018Subjective:Awak e non verbalAfebrileWbc trending down.Unable to provide any historyObjective:Vitals:P atient Vitals for the past 24 hrs: BP Temp Pulse Resp SpO2 [place]18/11/19 1133 (!) 161/98 97.2 F (36.2 C) [...] no.4 with vit K 10 mL, t mg, folic acid 1 mg infusion IntraVENous Q24H albuterol-ipratropium (DUO-NEB) 2.5 MG-0.5 MG/3 ML 3 mL Nebulization Q4H PRN cinacalcet (SENSIP AR) tablet 60 mg 60 mg Oral DAILY budesonide (PULMICORT) 500 mcg/2 ml nebu lizer suspension 500 mcg NebulizationBID RTLabs:Recent Labs 04496 616WBC 12.6* 14.1* 17.1* 21.5*HGB 13.1* 12.5* [...] Supporting Document(s ) ID Date Data Source [id number] 11/23/2018 02:13:29 PM EDT [facility] Progress NoteNAME: Evelio JohsnoninDOB: 1950MRN: [id number]:Tolerating tube feeds at 35cc with minimal residual [...] hernia K44.9 COPD (chronic obstructive pulmonary disease) ([facility]) J44 .9 Acute respiratory distress R06.03 Pneumonia J18.9 COPD exacerbation ([facility]) J44.1Assessment: Ileus- resolving- tube feeds with no residual S/p surgical G-t ube Aspiration PNAPlan: Cont to advance tube feeds to goalSigned By: Mireya Patton 11/23/2018 2:11 PM Name Value Range Interpretation Code Description [facility] Document(s ) ID Date Data Source [id number] 11/23/2018 06:57:56 AM EDT [facility] Bedside and Verbal shift change report g iven to Nehemias Alamo RN (oncomingnurse) by Marni Regalado RN (offgoing nurse). Report included the followinginformation SBAR and Kardex. Name Value Range Interpretation Code Description Data [facility](s) Supporting Document(s ) ID Date Data Source [id number] 11/23/2018 06:22:25 AM EDT [facility] [facility] Name Value Range Interpretation Description Data Sup porting Code Source(s) Document(s ) Sodium 136 136-145 [facility] - [Moles/volume] in mmol/L [facility] Serum or Plasma Hospital Potassium 3.7 3.5-5.1 [facility] - [Moles/volume] in mmol/L [facility] Serum or Plasma Hospital Chloride 101 98-107 [facility] - [Moles/volume] in mmol/L [facility] Serum or Plasma Hospital Carbon dioxide, 30 21-32 [facility] - total mmol/L Community [Moles/volume] in Hospital Serum or Plasma Anion gap in Serum 9 10-20 Below low normal [facility] - or Plasma mmol/L [facility] Glucose 147 74-106 Above high [facility] - [Mass/volume] in mg/dL normal [facility] Serum or Plasma Hospital Urea nitrogen 10 7-18 [facility] - [Mass/volume] in mg/dL [facility] Serum or Plasma [facility] Creatinine 0.32 0.70-1. Below low normal [facility] - [Mass/volume] in mg/dL 30 [facility] Serum or Plasma Hospital Glomerular >60 [facility] Bilirubin.total 0.8 0.2-1.0 [facility] - [Mass/volume] in mg/dL [facility] Serum or Plasma Hospital Alanine 29 U/L 13-61 [facility] - aminotransferase Community [Enzymatic Hospital activity/volume] in Serum or Plasma Aspartate 19 U/L 15-37 [facility] - aminotransferase Community [Enzymatic Hospital activity/volume] in Serum or Plasma by With P-5'-P Alkaline 62 U/L 45-117 [facility] - phosphatase Community [Enzymatic Hospital activity/volume] in Serum or Plasma Protein 5.6 6.4-8.2 Below low normal [facility] - [Mass/volume] in g/dL [facility] Serum or Plasma Hospital Albumin 2.5 3.5-4.7 Below low normal [facility] - [Mass/volume] in g/dL [facility] Serum or Plasma by [facility] Bromocresol purple (BCP) dye binding method Globulin 3.1 1.7-4.7 [facility] - [Mass/volume] in g/dL Community Serum by Hospital calculation Albumin/Globulin 0.8 0.7-2.8 [facility] - [Mass Ratio] in Community Serum or Plasma Hospital ID Date Data Source [id number] 11/23/2018 06:22:25 AM EDT [facility] Name Value Range Interpretation Description Data Sup porting Code Source(s) Document(s ) Magnesium 1.8 mg/dL 1.6-2.6 [facility] - [Mass/volume] Community in Serum or Hospital Plasma ID Date Data Source [id number] 11/23/2018 06:13:41 AM EDT [facility] Name Value Range Interpretation Description Data Sup porting Code Source(s) Document(s ) Leukocytes 12.6 4.8-10.6 Above high normal [facility] - [#/volume] in K/uL [facility] Blood by Hospital Automated count Erythrocytes 4.09 4.70-6.0 Below low normal [facility] - [#/volume] in M/uL 0 [facility] Blood by Hospital Automated count Hemoglobin 13.1 14.0-18. Below low normal [facility] - [Mass/volume] in g/dL 0 [facility] Blood [facility] Hematocrit 38.8 % 42.0-52. Below low normal [facility] - [Volume 0 Community Fraction] of Hospital Blood by Automated count Erythrocyte mean 94.9 FL 81.0-94. Above high normal [facility] - corpuscular 0 [facility] volume [Entitic Hospital volume] by Automated count Erythrocyte mean 32.0 PG 27.0-35. [facility] - corpuscular 0 [facility] hemoglobin Hospital [Entitic mass] by Automated count Erythrocyte mean 33.8 30.7-37. [facility] - corpuscular g/dL 3 [facility] hemoglobin Hospital concentration [Mass/volume] by Automated count Erythrocyte 14.1 % 11.5-14. Above high normal [facility] - distribution 0 Community width [Ratio] by Hospital Automated count Platelets 171 K/uL 130-400 [facility] - [#/volume] in [facility] Blood by Hospital Automated count Platelet mean 9.2 FL 9.2-11.8 [facility] - volume [Entitic Community volume] in Blood Hospital by Automated count Segmented 88 % 48.0-72. Above high normal [facility] - neutrophils/100 0 Community leukocytes in Hospital Blood Lymphocytes/100 8 % 18.0-40. Below low normal [facility] - leukocytes in 0 [facility] Monocytes/100 4 % 2.0-12.0 [facility] - leukocytes in [facility] Eosinophils/100 0 % 0.0-7.0 [facility] - leukocytes in [facility] Basophils/100 0 % 0.0-3.0 [facility] - leukocytes in [facility] Segmented 11.0 1.5-6.6 Above high normal [facility] - neutrophils K/UL Community [#/volume] in Hospital Blood Lymphocytes 1.0 K/UL 1.5-3.5 Below low normal [facility] - [#/volume] in [facility] Monocytes 0.5 K/UL 0.0-1.0 [facility] - [#/volume] in [facility] Eosinophils 0.0 K/UL 0.0-0.7 [facility] - [#/volume] in [facility] Basophils 0.0 K/UL 0.0-0.1 [facility] - [#/volume] in [facility] Differential [facility] - cell count [facility] Immature 0 % 0.0-2.0 [facility] - granulocytes/100 Community leukocytes in Hospital Blood by Automated count ID Date Data Source [id number] 11/22/2018 07:40:38 PM EDT [facility] Bedside and Verbal shift change report carol Grider RN (oncoming nurse) Israel Alamo RN (offgoing nurse). Report incl uded the following information SBAR, Kardex,Procedure Summary, Intake/Output, MAR, Recent Results and Cardiac Rhythm NSR. Name Value Range Interpretation Code Description Data Harriett rce(s) Supporting Document(s ) ID Date Data Source [id number] 11/22/2018 04:47:20 PM EDT [facility] ID Progress Note11/22/2018Subjective:Awak e non verbalAfebrileWbc trending down.Unable to provide any historyObjective:Vitals:P atient Vitals for the past 24 hrs: BP Temp Pulse Resp SpO2 Nauols93/10/19 1639 154/ 86 98.3 F (36.8 C) [...] no.4 with vit K 10 mL, t [id number] mg, folic acid 1 mg infusion IntraVENous Q24H albuterol-ipratropium (DUO-NEB) 2.5 MG-0.5 MG/3 ML 3 mL Nebulization Q4H PRN cinacalcet (SENSIP AR) tablet 60 mg 60 mg Oral DAILY budesonide (PULMICORT) 500 mcg/2 ml nebu lizer suspension 500 mcg NebulizationBID RTLabs:Recent Labs 44399 6 11/19/1918WBC 14.1* 17.1* 21.5* 20.6* 23.9*HGB [...] Supporting Document(s ) ID Date Data Source [id number] 11/22/2018 01:16:38 PM EDT [facility] PULMONARY/ CCM- Consult NotePatient: Ivelisse Carlin [...] Duo-Ne b and Solu-Medrol [facility] Seen earlier today,confused,breathing betterP ast Medical History:Diagnosis [...] adult no.4 with vit K 10 mL, [id number] mg, folic acid 1 mg infusion, , [...] - 11/22/1865811/22/18699 - 11/23/18 0659Shift 699- 1858 5824-6105 24 Hour Total 2286-6508 5772-5824 24 Hour TotalINTAKEI.V.(mL/kg/ hr) 170(0.2) 170(0.1) I.V. [...] 11/17/18) 20 20Shift Total(mL/kg) 695(11.2) 650(11.1) 1345(23 )[facility] -195 -293 -3771Weight (kg) 62.3 58.4 58.4 58.4 58.4 58.4Pulse [...] 36.7* 34.9* 41.0*PLT 168 171 167Recent Labs 69589 11/21/1903NA -- 141 139 139K -- 4.1 [...] Supporting Document(s ) ID Date Data Source [id number] 11/22/2018 01:08:44 PM EDT [facility] Tap water enema given. Pt tolerated well . Name Value Range Interpretation Code Description Data Harriett rce(s) Supporting Document(s ) ID Date Data Source [id number] 11/22/2018 12:37:13 PM EDT [facility] Name Value Range Interpretation Description Data Sup porting Code Source(s) Document(s ) pH of Arterial 7.45 7.35-7.4 [facility] - blood 5 [facility] Hospital Carbon dioxide 38 mmHg 32-48 [facility] - [Partial Community pressure] in Hospital Arterial blood Oxygen 73 mmHg 83-108 Below low normal [facility] - [Partial Community pressure] in Hospital Arterial blood Carbon 28 19-24 Above high normal [facility] - dioxide, total mmol/L Community [Moles/volume] Hospital in Arterial blood Bicarbonate 26 21-28 [facility] - [Moles/volume] mmol/L [facility] in Arterial Hospital blood Oxygen 97 % 94-98 [facility] - saturation in [facility] Blood Hospital Base excess in 2.4 0-3 [facility] - Arterial blood mmol/L Community by calculation [facility] Service comment 67616 [facility] ID Date Data Source [id number] 11/22/2018 10:53:14 AM EDT [facility] Progress NotePatient: Evelio Carlin SSN: [id number] of : 1950 Age: 68 y.o. Sex: [...] bilaterally, HEART: regular rate and rhythm, S1, K5xljsds, no murmur, cli ck, rub or gallop, [...] Name Value Range Interpretation Code Description Data [facility] rce(s) Supporting Document(s ) ID Date Data Source [id number] 11/22/2018 08:24:50 AM EDT [facility] EXAM: XR ABD (KUB)INDICATION: ileusCOMPA RISON: [...] Name Value Range Interpretation Code Description [facility] ) ID Date Data Source [id number] 11/22/2018 08:23:46 AM EDT [facility] History: PNEUMONIATechnique: Portable ch est x-ray [...] Name Value Range Interpretation Code Description Data [facility] rce(s) Supporting Document(s ) ID Date Data Source [id number] 11/22/2018 07:45:27 AM EDT [facility] Bedside and Verbal shift change report carol pham to Nehemias RN (oncoming nurse) byKim Keene RN (offgoing nurse). R eport included the following information SBAR, Kardex,Intake/Output, MAR and Rece nt Results. Name Value Range Interpretation Code Description Data Harriett rce(s) Supporting Document(s ) ID Date Data Source [id number] 11/22/2018 07:05:07 AM EDT [facility] - [facility] Name Value Range Interpretation Description Data Sup porting Code Source(s) Document(s ) Sodium 141 136-145 [facility] - [Moles/volume] in mmol/L [facility] Serum or Plasma Hospital Potassium 4.1 3.5-5.1 [facility] - [Moles/volume] in mmol/L [facility] Serum or Plasma Hospital Chloride 104 98-107 [facility] - [Moles/volume] in mmol/L [facility] Serum or Plasma Hospital Carbon dioxide, 30 21-32 [facility] - total mmol/L Community [Moles/volume] in Hospital Serum or Plasma Anion gap in Serum 11 10-20 [facility] - or Plasma mmol/L [facility] Glucose 87 74-106 [facility] - [Mass/volume] in mg/dL [facility] Serum or Plasma Hospital Urea nitrogen 16 7-18 [facility] - [Mass/volume] in mg/dL [facility] Serum or Plasma [facility] Creatinine 0.33 0.70-1. Below low normal [facility] - [Mass/volume] in mg/dL 30 [facility] Serum or Plasma Hospital Glomerular >60 [facility] [...] [facility] Bilirubin.total 0.9 0.2-1.0 [facility] - [Mass/volume] in mg/dL [facility] Serum or Plasma Hospital Alanine 25 U/L 13-61 [facility] - aminotransferase Community [Enzymatic Hospital activity/volume] in Serum or Plasma Aspartate 16 U/L 15-37 [facility] - aminotransferase Community [Enzymatic Hospital activity/volume] in Serum or Plasma by With P-5'-P Alkaline 46 U/L 45-117 [facility] - phosphatase Community [Enzymatic Hospital activity/volume] in Serum or Plasma Protein 5.7 6.4-8.2 Below low normal [facility] - [Mass/volume] in g/dL [facility] Serum or Plasma Hospital Albumin 2.4 3.5-4.7 Below low normal [facility] - [Mass/volume] in g/dL [facility] Serum or Plasma by [facility] Bromocresol purple (BCP) dye binding method Globulin 3.3 1.7-4.7 [facility] - [Mass/volume] in g/dL [facility] Serum by [facility] calculation Albumin/Globulin 0.8 0.7-2.8 [facility] - [Mass Ratio] in [facility] Serum or Plasma Hospital ID Date Data Source [id number] 11/22/2018 07:05:07 AM EDT [facility] [place] Value Range Interpretation Description Data Sup porting Code Source(s) Document(s ) Magnesium 1.6 mg/dL 1.6-2.6 [facility] - [Mass/volume] Community in Serum or [facility] Plasma ID Date Data Source [id number] 11/22/2018 06:55:36 AM [facility] Value Range Interpretation Description Data Sup porting Code Source(s) Document(s ) Leukocytes 14.1 4.8-10.6 Above high normal [facility] - [#/volume] in K/uL [facility] Blood by Hospital Automated count Erythrocytes 3.85 4.70-6.0 Below low normal [facility] - [#/volume] in M/uL 0 [facility] Blood by Hospital Automated count Hemoglobin 12.5 14.0-18. Below low normal [facility] - [Mass/volume] in g/dL 0 [facility] Blood [facility] Hematocrit 36.7 % 42.0-52. Below low normal [facility] - [Volume 0 Community Fraction] of Hospital Blood by Automated count Erythrocyte mean 95.3 FL 81.0-94. Above high normal [facility] - corpuscular 0 [facility] volume [Entitic Hospital volume] by Automated count Erythrocyte mean 32.5 PG 27.0-35. [facility] - corpuscular 0 [facility] hemoglobin Hospital [Entitic mass] by Automated count Erythrocyte mean 34.1 30.7-37. [facility] - corpuscular g/dL 3 [facility] hemoglobin Hospital concentration [Mass/volume] by Automated count Erythrocyte 14.6 % 11.5-14. Above high normal [facility] - distribution 0 Community width [Ratio] by Hospital Automated count Platelets 168 K/uL 130-400 [facility] - [#/volume] in [facility] Blood by Hospital Automated count Platelet mean 9.0 FL 9.2-11.8 Below low normal [facility] - volume [Entitic Community volume] in Blood Hospital by Automated count Segmented 90 % 48.0-72. Above high normal [facility] - neutrophils/100 0 Community leukocytes in Hospital Blood Lymphocytes/100 7 % 18.0-40. Below low normal [facility] - leukocytes in 0 [facility] Blood Hospital Monocytes/100 3 % 2.0-12.0 [facility] - leukocytes in [facility] Eosinophils/100 0 % 0.0-7.0 [facility] - leukocytes in [facility] Blood [facility] Basophils/100 0 % 0.0-3.0 [facility] - leukocytes in [facility] Blood [facility] Segmented 12.7 1.5-6.6 Above high normal [facility] - neutrophils K/UL Community [#/volume] in Hospital Blood Lymphocytes 1.0 K/UL 1.5-3.5 Below low normal [facility] - [#/volume] in [facility] Monocytes 0.4 K/UL 0.0-1.0 [facility] - [#/volume] in [facility] Eosinophils 0.0 K/UL 0.0-0.7 [facility] - [#/volume] in [facility] Basophils 0.0 K/UL 0.0-0.1 [facility] - [#/volume] in [facility] Differential [facility] - cell count [facility] Immature 0 % 0.0-2.0 [facility] - granulocytes/100 Community leukocytes in Hospital Blood by Automated count ID Date Data Source [id number] 11/21/2018 07:32:02 PM EDT [facility] Bedside and Verbal shift change report carol pham to Kim Keene RN (oncomingnurse) by Roshin Alias RN (offgoing nurse). Report included the followinginformation SBAR, Kardex, ED Summary, Procedure Summary, I ntake/Output, MAR,Recent Results and Med Rec Status. Name Value Range Interpretation Code Description Data Harriett rce(s) Supporting Document(s ) ID Date Data Source [id number] 11/21/2018 05:18:34 PM EDT [facility] 2nd tap water enema given .pt tolerated well .will cont monitor Name Value Range Interpretation Code Description Data Harriett rce(s) Supporting Document(s ) ID Date Data Source [id number] 11/21/2018 03:07:11 PM EDT [facility] Problem: Pressure Injury - Risk ofGoal: [...] to skin, Pressure redistribution bed/mattress (bed type), Hju97-myleya si de-lying position, Turn and reposition approx. [...] Name Value Range Interpretation Code Description Data [facility] rce(s) Supporting Document(s ) ID Date Data Source [id number] 11/21/2018 12:28:40 PM EDT [facility] ID Progress Note11/21/2018Subjective:Pt tr ansferred back to the floor, breahting is betterX-ray shows ileus, he is S/p surgi inez peg placement 11/17/18, + coffee ground emesisWbc downtrending to 17K from 25KVa nco trough 9.4Patient with MR,schizophrenia,non verbal.Unable to pr ovide any history.Objective:Vitals:Patient Vitals for the past 24 hrs: BP Temp Puls e Resp SpO2 Jywjra56/09/19 1000 127/62 - 77 17 95 % [...] no.4 with vit K 10 mL, t [id number] mg, folic acid 1 mg infusion IntraVENous Q24H albuterol-ipratropium (DUO-NEB) 2.5 MG-0.5 MG/3 ML 3 mL Nebulization Q4H PRN cinacalcet (SENSIP AR) tablet 60 mg 60 mg Oral DAILY budesonide (PULMICORT) 500 mcg/2 ml nebu lizer suspension 500 mcg NebulizationBID RTLabs:Recent Labs 75985 400 605WBC 17.1* 21.5* 20.6* 23.9* 25.4*HGB [...] Supporting Document(s ) ID Date Data Source [id number] 11/21/2018 09:55:57 AM EDT [facility] TRANSFER - OUT REPORT:Verbal report give [...] Transparent;Tape 11/21/2018 8:00 AMHub Co nirali/Line Status [place];Patent;Flushed;Infusing 11/21/2018 8:00 AMAction Taken Open ports on tubing capped 11/21/2018 8:00 AMAlcohol Cap Used Yes 11/21/2018 8:00 AMPeripheral IV 11/19/18 Posterior;Right Hand (Active)Site Assessment Clean, dry, & in tact 11/21/2018 8:00 AMPhlebitis Assessment 0 11/21/2018 8:00 AMInfiltration Assessment 0 11/21/2018 8:00 AMDressing Status Clean, dry, & intact 11/21/2018 8:00 AMDressing Type Transparent;Tape;Hilda 11/21/2018 8:00 AMHub Color/Line Status [place];Patent;Flus hed;Infusing 11/21/2018 8:00 AMAction Taken Open ports on tubing capped 11/21/2018 8: 00 AMAlcohol Cap Used Yes 11/21/2018 8:00 AMOpportunity for questions and clarific ation was provided.Patient transported with: MonitorO2 @ 3 litersPatient-specific med ications from PharmacyRegistered Nurse Name Value Range Interpretation Code Description Data [facility](s) Supporting Document(s ) ID Date Data Source [id number] 11/21/2018 09:55:02 AM EDT [facility] As per Dr. Mansfield and Dr. Kaye okay to give medication via G-tube., and thenplace G tube back on low intermittent suction.Dr Gualberto Kaye changed abdominal dressing. G-tube and kalpana clean, dry, andintact. Guaze dressing placed and secured with tape by MD, abdominal binderpresent. Will continue t o monitor. Name Value Range Interpretation Code Description Data [facility](s) Supporting Document(s ) ID Date Data Source [id number] 11/21/2018 09:43:47 AM EDT [facility] Tap water enema given as ordered by Dr. Mansfield. Patient tolerated. Name Value Range Interpretation Code Description Data Harriett rce(s) Supporting Document(s ) ID Date Data Source [id number] 11/21/2018 09:34:24 AM EDT [facility] Progress NotePatient: Evelio Carlin SSN: [id number] of : 1950 Age: 68 y.o. Sex: [...] HEART: regular rate and rhy thm, S1, H0uwhefi, no murmur, click, rub or gallop, ABDOMEN: [...] in this interval not displayed.Chemistry Recent Labs 21184 400 3GLU 104 138* 61*NA 139 139 [...] intermitten t suctionRepeat portable abdominal xray in [facility] discussed with Dr Sandoval ble restart feeding in AM if continues to stabilizeSigned By: Letty Kaye MD A ugust 2018 Name Value Range Interpretation Code Description Data Harriett rce(s) Supporting Document(s ) ID Date Data Source [id number] 11/21/2018 09:10:18 AM EDT [facility] Abdomen 2 views clinical indication ileu sStudy is compared to previous examination of November 20, 2018. There has been aninterva l decrease in bowel distention. Increased stool is noted in the rectalregion. Skin clips are again noted.IMPRESSION:1. Interval decrease in bowel distention.2. Increase d stool in rectal regionSigning date/time: 11/21/2018 9:10 AMSigned by: EAMON SÁNCHEZ Name Value Range Interpretation Code Description Data [facility](s) Supporting Document(s ) ID Date Data Source [id number] 11/21/2018 09:07:44 AM EDT [facility] AP portable film of the chest [...] Name Value Range Interpretation Code Description Data [facility](s) Supporting Document(s ) ID Date Data Source [id number] 11/21/2018 08:24:42 AM EDT [facility] Progress NotePatient: Evelio Carlin SSN: [id number] of : 1950 Age: 68 y.o. Sex: [...] Problems: COPD (chronic obstructive pul monary disease) ([facility]) (11/08/2018) Acute respiratory distress (11/08/2018) Pneumo freddy (11/08/2018) COPD exacerbation ([facility]) (11/08/2018)IleusCoffee ground material y day from [...] Supporting Document(s ) ID Date Data Source [id number] 11/21/2018 07:43:55 AM EDT [facility] Critical Care Progress N [facility]Krystian Monae MD., F.C.C.P.Stella Hamilton MD., F.C.C.P. [address] [place] [address] [place] [address] Name: Evelio JohnsoninDOB: 1950MRN: [...] 24 hrs: BP Temp Pulse Resp SpO2 Gzfogh46/09/19 0729 - 97.7 F (36.5 C) - [...] adult no.4 with vit K 10 mL, hshxxiaa869 mg, folic acid 1 mg infusion IntraVENous [...] dure Component Value Units Date/Time CULTURE, URINE [[id number]] Collected: 11/20/18 0 900 Order Status: Completed Specimen: Urine from [facility] Specimen Updated:11/20/18 094 9 CULTURE, BLOOD [[id number]] Collected: 11/07/181999 Order Status: Completed S pecimen: Blood Updated: 11/12/18640 Special Requests: NO SPECIAL REQUESTS C ulture result: NO GROWTH 5 DAYS CULTURE, BLOOD [[id number]] Collected: 11/07/18 2 010 Order Status: Completed Specimen: Blood Updated: 11/12/18640 Special Request s: NO SPECIAL REQUESTS Culture result: NO GROWTH 5 DAYS STREP PNEUMO AG, URINE [[id number]] Collected: 11/09/18 0700 Order Status: Completed Specimen: [...] MEMBRANE ASSAY LEG IONELLA PNEUMOPHILA AG, URINE [[id number]] Collected: 11/08/18 1145 Order Status: Completed Specimen: [...] Method IMMUNOCHROMATOGRAPHIC MEMBRANE A SSAY CULTURE, URINE [[id number]] Collected: 11/07/18 1930 Order Status: Canceled Sp [...] the procedure or anatomicalre gions you entered.Example: .BSHSILASTIMGCAT[[id number]:3This example wo uld display results for the last three orders with an externalprocedure ID of [id number] he patient is: [x] acutely ill Risk of deterioration: [x] moderate [] criticall y ill [] highActive Problems: COPD (chronic obstructive pulmonary disease) ([facility]) () Acute respiratory distress (11/08/2018) Pneumonia (11/08/2018) COPD exacerbation ([facility]) (11/08/2018)IMPRESSION:COPD (chronic obst ructive pulmonary disease) ([facility]) (11/08/2018) Acute respiratory distress (11/08/2018) Pneumonia (11/08/2018) COPD exacerbation ([facility]) (11/08/2018) Acute resp failure c ombined,IMPROVING pneumonia L L L > R L L acute copd exacerbation P .. E . ruled out. BILATERAL BASAL ATELECTASES ASPRATIONS / DYSPHAGIA SEVERE CONSTIPAT IONPLAN,Monitoring,Iv ZOSYN AND VANCOMYCIN DECREASE SOLUMEDROL 20 MG Q 8 Hbipap prn and at night. SHORTY LOZANO QIDD/W nursing staff. G I FOLLOWING PATIENT My assessment, plan of care, findings, medications, side effects etc werediscussed with:[x]nursing []PT/OT[x]respiratory therapy [][]norma jay []Critical Care Provided 50 minutes non procedure based.Krystian Monae MD F.C .C.P. Name Value Range Interpretation Code Description Data [facility](s) Supporting Document(s ) ID Date Data Source [id number] 11/21/2018 07:14:52 AM EDT [facility] Bedside and Verbal shift change report carol pham to NANCY Davey (oncoming nurse) Elizabet Hancock RN (offgoing nurse). Report in cluded the following information SBAR,Intake/Output, MAR, Recent Results, Med Rec Status and Cardiac Rhythm NSR. Name Value Range Interpretation Code Description Data [facility](s) Supporting Document(s ) ID Date Data Source [id number] 11/21/2018 05:39:18 AM EDT [facility] Name Value Range Interpretation Description Data Sup porting Code Source(s) Document(s ) Magnesium 1.7 mg/dL 1.6-2.6 [facility] - [Mass/volume] Community in Serum or Hospital Plasma ID Date Data Source [id number] 11/21/2018 06:00:12 AM EDT [facility] - [facility] Name Value Range Interpretation Description Data Sup porting Code Source(s) Document(s ) Leukocytes 17.1 4.8-10.6 Above high normal [facility] - [#/volume] in K/uL Community Blood by Hospital Automated count Erythrocytes 3.65 4.70-6.0 Below low normal [facility] - [#/volume] in M/uL 0 [facility] Blood by Hospital Automated count Hemoglobin 11.9 14.0-18. Below low normal [facility] - [Mass/volume] in g/dL 0 [facility] Blood Hospital Hematocrit 34.9 % 42.0-52. Below low normal [facility] - [Volume 0 Community Fraction] of Hospital Blood by Automated count Erythrocyte mean 95.6 FL 81.0-94. Above high normal [facility] - corpuscular 0 Community volume [Entitic Hospital volume] by Automated count Erythrocyte mean 32.6 PG 27.0-35. [facility] - corpuscular 0 [facility] Hospital [Entitic mass] by Automated count Erythrocyte mean 34.1 30.7-37. [facility] - corpuscular g/dL 3 [facility] hemoglobin Hospital concentration [Mass/volume] by Automated count [...] 0 [facility] Blood Hospital Monocytes/100 2 % 2.0-12.0 [facility] - leukocytes in [facility] Blood Hospital Eosinophils/100 0 % 0.0-7.0 [facility] - leukocytes in [facility] Blood Hospital Basophils/100 0 % 0.0-3.0 [facility] - leukocytes in [facility] Blood Hospital Segmented 16.0 1.5-6.6 Above high normal [facility] - neutrophils K/UL Community [#/volume] in Hospital Blood Lymphocytes 0.7 K/UL 1.5-3.5 Below low normal [facility] - [#/volume] in [facility] Blood Hospital Monocytes 0.3 K/UL 0.0-1.0 [facility] - [#/volume] in [facility] Blood Hospital Eosinophils 0.0 K/UL 0.0-0.7 [facility] - [#/volume] in [facility] Blood Hospital Basophils 0.0 K/UL 0.0-0.1 [facility] - [#/volume] in [facility] Blood Hospital Differential [facility] - cell count [facility] Immature 0 % 0.0-2.0 [facility] - granulocytes/100 Community leukocytes in Hospital Blood by Automated count ID Date Data Source [id number] 11/21/2018 05:39:18 AM EDT [facility] - [facility] Name Value Range Interpretation Description Data Sup porting Code Source(s) Document(s ) Sodium 139 136-145 [facility] - [Moles/volume] in mmol/L [facility] Serum or Plasma Hospital Potassium 3.9 3.5-5.1 [facility] - [Moles/volume] in mmol/L [facility] Serum or Plasma Hospital Chloride 105 98-107 [facility] - [Moles/volume] in mmol/L [facility] Serum or Plasma Hospital Carbon dioxide, 30 21-32 [facility] - total mmol/L [facility] [Moles/volume] in Hospital Serum or Plasma Anion gap in Serum 8 10-20 Below low normal [facility] - or Plasma mmol/L [facility] Glucose 104 74-106 [facility] - [Mass/volume] in mg/dL [facility] Serum or Plasma Hospital Urea nitrogen 17 7-18 [facility] - [Mass/volume] in mg/dL [facility] Serum or Plasma Hospital Creatinine 0.32 0.70-1. Below low normal [facility] - [Mass/volume] in mg/dL 30 [facility] Serum or Plasma Hospital Glomerular >60 [facility] Serum [facility] Bilirubin.total 0.9 0.2-1.0 [facility] - [Mass/volume] in mg/dL [facility] Serum or Plasma Hospital Alanine 26 U/L [...] low normal [facility] - [Mass/volume] in g/dL [facility] Serum or Plasma Hospital Albumin 2.2 3.5-4.7 Below low normal [facility] - [Mass/volume] in g/dL [facility] Serum or Plasma by Hospital Bromocresol purple (BCP) dye binding method Globulin 2.9 1.7-4.7 [facility] - [Mass/volume] in g/dL [facility] Serum by Hospital calculation Albumin/Globulin 0.8 0.7-2.8 [facility] - [Mass Ratio] in [facility] Serum or Plasma Hospital ID Date Data Source [id number] 11/20/2018 07:22:11 PM EDT [facility] Bedside and Verbal shift change report carol Gonzalez RN (oncoming nurse) byTamica Narayan RN (offgoing nurse). Report in cluded the following information SBAR, Kardex, EDSummary, Procedure Summary, In take/Output, MAR, Recent Results, Cardiac RhythmNSR and Alarm Parameters . Name Value Range Interpretation Code Description Data Harriett rce(s) Supporting Document(s ) ID Date Data Source [id number] 11/20/2018 06:20:47 PM EDT [facility] There is diffuse ileus of the [...] Supporting Document(s ) ID Date Data Source [id number] 11/20/2018 04:19:15 PM EDT [facility] PULMONARY/ CCM- Consult NotePatient: Ivelisse Carlin [...] ase (HCC) GERD (gastroesophageal reflux disease) Hyperparathyroidism ([facility]) Men krystian retardation Parkinsonism due to [...] MG-0 .5 MG/3 ML, 3 mL, Nebulization, [id number] ARANDA Harinder, MD vancomycin (VANCOCI N) 1,000 [...] adult no.4 with vit K 10 mL, [id number] mg, folic acid 1 mg infusion, , IntraVENous, Q24H, Letty Kaye MD,Stopped at 11/20/18 0636 albuterol-ipratropium (D UO-NEB) 2.5 MG-0.5 MG/3 ML, 3 mL, Nebulization, Q4HPRN, Letty Kaye M D, 3 mL at 11/19/18 0602 cinacalcet (SENSIPAR) tablet 60 mg, 60 mg, Oral, DA PIERRE, Letty Kyae MD,Stopped at 11/20/18 0915 budesonide (PULMICORT) 500 [...] 699 - 11/20/18 0611/20/18699 - 11/21/18 0659Shift 2547-2985 7769-7195 2 4 Hour Total 4885-8919 1404-0006 24 Hour TotalINTAKEI.V.(mL/kg/hr) 370(0.6) 1760( 2.4) 2130(1.5) [...] Supporting Document(s ) ID Date Data Source [id number] 11/20/2018 04:53:35 PM EDT [facility] - [place] [...] 0 [facility] Blood Hospital Hematocrit 41.0 % 42.0-52. Below low normal [facility] - [Volume 0 Community Fraction] of Hospital Blood by Automated count Erythrocyte mean 99.3 FL 81.0-94. Above high normal [facility] - corpuscular 0 [facility] volume [Entitic Hospital volume] by Automated count Erythrocyte mean 32.7 PG 27.0-35. [facility] - corpuscular 0 [facility] hemoglobin Hospital [Entitic mass] by Automated count Erythrocyte mean 32.9 30.7-37. [facility] - corpuscular g/dL 3 [facility] hemoglobin Hospital concentration [Mass/volume] by Automated count Erythrocyte 15.0 % 11.5-14. Above high normal [facility] - distribution 0 Community width [Ratio] by Hospital Automated count Platelets 167 K/uL 130-400 [facility] - [#/volume] in [facility] Blood by Hospital Automated count Platelet mean 9.5 FL 9.2-11.8 [facility] - volume [Entitic Community volume] in Blood Hospital by Automated count Segmented 94 % 48.0-72. Above high normal [facility] - neutrophils/100 0 Community leukocytes in Hospital Blood Lymphocytes/100 4 % 18.0-40. Below low normal [facility] - leukocytes in 0 [facility] Blood Hospital Monocytes/100 2 % 2.0-12.0 [facility] - leukocytes in [facility] Blood Hospital Eosinophils/100 0 % 0.0-7.0 [facility] - leukocytes in [facility] Blood Hospital Basophils/100 0 % 0.0-3.0 [facility] - leukocytes in [facility] Blood Hospital Segmented 20.3 1.5-6.6 Above high normal [facility] - neutrophils K/UL Community [#/volume] in Hospital Blood Lymphocytes 0.8 K/UL 1.5-3.5 Below low normal [facility] - [#/volume] in [facility] Monocytes 0.3 K/UL 0.0-1.0 [facility] - [#/volume] in [facility] Eosinophils 0.0 K/UL 0.0-0.7 [facility] - [#/volume] in [facility] Basophils 0.0 K/UL 0.0-0.1 [facility] - [#/volume] in [facility] Differential [facility] - cell count [facility] Immature 0 % 0.0-2.0 [facility] - granulocytes/100 [facility] leukocytes in Hospital Blood by Automated count ID Date Data Source [id number] 11/20/2018 02:59:09 PM EDT [facility] The patient's Clinical Indicators includ e:A/W [...] Value Range Interpretation Code Description Data Harriett [facility](s) Supporting Document(s ) ID Date Data Source [id number] 11/20/2018 12:40:42 PM EDT [facility] KUB one view(s)History: Ileus.Compariso n: Yesterday.There [...] Supporting Document(s ) ID Date Data Source [id number] 11/20/2018 11:54:50 AM EDT [facility] - [facility] ID Progress Note11/20/2018Subjective:Pt tr ansferred to CCU with respiratory distress, currently on nasal canula andat base michaela ePatient with MR,schizophrenia,non verbal.Unable to provide any history.Afe brile but tachycardic, he is S/p surgical peg placement 11/17/18, + coffeeground emesisW bc downtrending to 25K,Objective:Vitals:Patient Vitals for the past 24 hrs: BP Temp Pulse Resp SpO2 Ruxtjx09/08/19 1100 117/66 - 73 19 98 % [...] adult no.4 with vit K 10 mL, ececrexa549 mg, folic acid 1 mg infusion IntraVENous Q 24H albuterol-ipratropium (DUO-NEB) 2.5 MG-0.5 MG/3 ML 3 mL Nebulization Q4H PA N cinacalcet (SENSIPAR) tablet 60 mg 60 [...] Supporting Document(s ) ID Date Data Source [id number] 11/20/2018 11:39:38 AM EDT [facility] [place] Value Range Interpretation Description Data Sup [...] peak ortrough levels. ID Date Data Source [id number] 11/20/2018 11:06:34 AM EDT [facility] NUTRITIONINTERDISCIPLINARY ROUNDS NOTEPa tient discussed during interdisciplinary [...] 65 gm fat, 1006 mL free water), jzwf503 mL free water flush q 3 hr once IVF d/c'd.If unable to resume EN, consider role of parenteral nutritio n.Monitor GI status.Adjust EN as appropriate. Discharge Planning: Pending clinical cou Carlita Espinoza RD Name Value Range Interpretation Code Description Data [facility](s) Supporting Document(s ) ID Date Data Source [id number] 11/20/2018 11:05:23 AM EDT [facility] Problem: Nutrition DeficitGoal: *Optimiz e nutritional [...] Name Value Range Interpretation Code Description Data [facility](s) Supporting Document(s ) ID Date Data Source [id number] 11/20/2018 10:59:11 AM EDT [facility] Asked to f/u by Dr. Kaye [...] Supporting Document(s ) ID Date Data Source [id number] 11/22/2018 07:42:18 AM EDT [facility] Name Value Range Interpretation Description Data Sup porting Code Source(s) Document(s ) Service comment [facility] Bacteria BSS - identified in [facility] Unspecified Hospital specimen by Culture ID Date Data Source [id number] 11/20/2018 08:53:09 AM EDT [facility] Progress NotePatient: Evelio Carlin SSN: [id number] of : 1950 Age: 68 y.o. Sex: [...] bilaterally, HEART: regular rate and rhythm, S1, K8xikhth, n o murmur, click, rub or gallop, [...] Problems Never Reviewed Codes Class Noted [employer] D (chronic obstructive pulmonary disease) (HCC) ICD-10-CM: [...] Supporting Document(s ) ID Date Data Source [id number] 11/20/2018 07:29:08 AM EDT [facility] Bedside and Verbal shift change report g ellynen to NANCY Davey (oncoming nurse) Elizabet Hancock RN (offgoing nurse). Report in cluded the following information SBAR, ED Summary,Procedure Summary, Intake/Output , MAR, Recent Results, Med Rec Status andCardiac Rhythm NSR. Name Value Range Interpretation Code Description Data Harriett rce(s) Supporting Document(s ) ID Date Data Source [id number] 11/20/2018 08:31:51 AM EDT [facility] Name Value Range Interpretation Description Data Sup porting Code Source(s) Document(s ) Leukocytes 20.6 4.8-10.6 Above high normal [facility] - [#/volume] in K/uL Community Blood by Hospital Automated count Erythrocytes 3.98 4.70-6.0 Below low normal [facility] - [#/volume] in M/uL 0 [facility] Blood by Hospital Automated count Hemoglobin 12.9 14.0-18. Below low normal [facility] - [Mass/volume] in g/dL 0 [facility] Blood [facility] Hematocrit 39.0 % 42.0-52. Below low normal [facility] - [Volume 0 Community Fraction] of Hospital Blood by Automated count Erythrocyte mean 98.0 FL 81.0-94. Above high normal [facility] - corpuscular 0 Community volume [Entitic Hospital volume] by Automated count Erythrocyte mean 32.4 PG 27.0-35. [facility] - corpuscular 0 [facility] hemoglobin Hospital [Entitic mass] by Automated count Erythrocyte mean 33.1 30.7-37. [facility] - corpuscular g/dL 3 [facility] hemoglobin Hospital concentration [Mass/volume] by Automated count [...] - Blood Hospital ID Date Data Source [id number] 11/20/2018 04:52:52 AM EDT [facility] Name Value Range Interpretation Description Data [...] Below low normal [facility] - Serum or [facility] Plasma Hospital Glucose 138 74-106 Above high [...] Plasma Hosp ital ID Date Data Source [id number] 11/20/2018 04:48:14 AM EDT [facility] Name Value Range Interpretation Description Data Sup porting Code Source(s) Document(s ) Magnesium 1.7 mg/dL 1.6-2.6 [facility] - [Mass/volume] Community in Serum or Hospital Plasma ID Date Data Source [id number] 11/19/2018 10:21:50 PM EDT [facility] Name Value Range Interpretation Description Data Sup porting Code Source(s) Document(s ) Glucose 101 MG/DL 65-110 [facility] - [Mass/volume] Community in Blood by Hospital Automated test strip ID Date Data Source [id number] 11/19/2018 08:50:13 PM EDT [facility] Name Value Range Interpretation Description Data Sup porting Code Source(s) Document(s ) Sodium 139 136-145 [facility] - [Moles/volume] in mmol/L [facility] Serum or Plasma Hospital Potassium 4.4 3.5-5.1 [facility] - [Moles/volume] in mmol/L [facility] Serum or Plasma Hospital Chloride 98 98-107 [facility] - [Moles/volume] in mmol/L [facility] Serum or Plasma Hospital Carbon dioxide, 13 21-32 Below low normal [facility] - total mmol/L Community [Moles/volume] in Hospital Serum or Plasma Anion gap in Serum 32 10-20 Above high [facility] - or Plasma mmol/L normal [facility] Hospital Glucose 61 74-106 Below low normal [facility] - [Mass/volume] in mg/dL [facility] Serum or Plasma Hospital Urea nitrogen 5 mg/dL 7-18 Below low normal [facility] - [Mass/volume] in [facility] Serum or Plasma Hospital Creatinine 0.52 0.70-1. Below low normal [facility] - [Mass/volume] in mg/dL 30 [facility] Serum or Plasma Hospital Glomerular >60 [facility] - filtration Community rate/1.73 sq M Hospital predicted among blacks [Volume Rate/Area] in Serum or Plasma by Creatinine-based formula (MDRD) Glomerular >60 [facility] - filtration Community rate/1.73 sq M Hospital predicted among non-blacks [Volume Rate/Area] in Serum or Plasma by Creatinine-based formula (MDRD) Calcium 7.1 8.5-10. Below low normal [facility] - [Mass/volume] in mg/dL 1 [facility] Serum or Plasma Hospital Bilirubin.total 1.0 0.2-1.0 [facility] - [Mass/volume] in mg/dL [facility] Serum or Plasma Hospital Alanine 38 U/L 13-61 [facility] - aminotransferase Community [Enzymatic Hospital activity/volume] in Serum or Plasma Aspartate 31 U/L 15-37 [facility] - aminotransferase Community [Enzymatic Hospital activity/volume] in Serum or Plasma by With P-5'-P Alkaline 60 U/L 45-117 [facility] - phosphatase Community [Enzymatic Hospital activity/volume] in Serum or Plasma Protein 6.6 6.4-8.2 [facility] - [Mass/volume] in g/dL [facility] Serum or Plasma Hospital Albumin 1.4 3.5-4.7 Below low normal [facility] - [Mass/volume] in g/dL Community Serum or Plasma by Hospital Bromocresol purple (BCP) dye binding method Globulin 5.2 1.7-4.7 Above high [facility] - [Mass/volume] in g/dL normal Community Serum by Hospital calculation Albumin/Globulin 0.3 0.7-2.8 Below low normal [facility] - [Mass Ratio] in [facility] Serum or Plasma Hospital ID Date Data Source [id number] 11/19/2018 08:03:59 PM EDT [facility] Name Value Range Interpretation Description Data Sup porting Code Source(s) Document(s ) Leukocytes 23.9 4.8-10.6 Above high normal [facility] - [#/volume] in K/uL Community Blood by Hospital Automated count Erythrocytes 4.61 4.70-6.0 Below low normal [facility] - [#/volume] in M/uL 0 [facility] Blood by Hospital Automated count Hemoglobin 15.2 14.0-18. [facility] - [Mass/volume] in g/dL 0 [facility] Blood [facility] Hematocrit 45.7 % 42.0-52. [facility] - [Volume 0 Community Fraction] of Hospital Blood by Automated count Erythrocyte mean 99.1 FL 81.0-94. Above high normal [facility] - corpuscular 0 Community volume [Entitic Hospital volume] by Automated count Erythrocyte mean 33.0 PG 27.0-35. [facility] - corpuscular 0 [facility] hemoglobin Hospital [Entitic mass] by Automated count Erythrocyte mean 33.3 30.7-37. [facility] - corpuscular g/dL 3 [facility] hemoglobin Hospital concentration [Mass/volume] by Automated count Erythrocyte 14.5 % 11.5-14. Above high normal [facility] - distribution 0 Community width [Ratio] by Hospital Automated count Platelets 175 K/uL 130-400 [facility] - [#/volume] in [facility] Blood by Hospital Automated count Platelet mean 9.8 FL 9.2-11.8 [facility] - volume [[facility] volume] in [facility] by Automated count ID Date Data Source [id number] 11/19/2018 07:21:15 PM EDT [facility] Review BIPAP settings, alarms and use of skin adhesive with next shift RT Arik Respiratory equipment wiped clean with B martinez Sani Wipes as perdepartment policycurtis [facility], Name Value Range Interpretation Code Description Data Harriett rce(s) Supporting Document(s ) ID Date Data Source [id number] 11/19/2018 06:34:11 PM EDT [facility] Received Pt from T3.Pt is on [...] Supporting Document(s ) ID Date Data Source [id number] 11/19/2018 04:33:16 PM EDT [facility] XR ABD (KUB)-SINGLE VIEWPRIOR: NoneHISTO RY: [...] Name Value Range Interpretation Code Description Data [facility] rce(s) Supporting Document(s ) ID Date Data Source [id number] 11/19/2018 03:41:01 PM EDT [facility] G tube was clamped for transportWill jocelyn ce to gravity drainage and monitor out putPlan KUB Name Value Range Interpretation Code Description Data [facility] rce(s) Supporting Document(s ) ID Date Data Source [id number] 11/19/2018 02:10:29 PM EDT [facility] Just received in CCU from T3/ respirator y failure, may require intubation. Perchart review plan is for QUINN at Only on ce medically stable. CM willfollow. Name Value Range Interpretation Code Description Data [facility] rce(s) Supporting Document(s ) ID Date Data Source [id number] 11/19/2018 12:49:55 PM EDT [facility] Critical Care Progress N [facility]Krystian Monae MD., F.C.C.P.Stella Hamilton MD., F.C.C.P. [address] [place] [address] [place] [address] Name: Evelio JohnsoninDOB: 1950MRN: [id number]: 11/19/2018Subjective:Mr. [...] Procedure Component Value Units Date/Time CULTURE, BLOOD [[id number]] Collected: 11/07/181999 Order Status: Completed Specimen: Blood Updated: 11/12/18640 Special Requests: NO SPEC IAL REQUESTS Culture result: NO GROWTH 5 DAYS CULTURE, BLOOD [[id number]] Collecte d: 11/07/182009 Order Status: Completed Specimen: Blood Updated: 07/31/19 0641 Special Requests: NO SPECIAL REQUESTS Culture result: NO GROWTH 5 DAYS STREP P NEUMO AG, URINE [[id number]] Collected: 11/09/18 0700 Order Status: Completed S [...] M EMBRANE ASSAY LEGIONELLA PNEUMOPHILA AG, URINE [[id number]] Collected: 11/08/18 1 145 Order Status: Completed [...] Method IMMUNOCHROMATOGRAPHIC MEMBRANE A SSAY CULTURE, URINE [[id number]] Collected: 11/07/18 1930 Order Status: Canceled Sp ecimen: Urine from Clean catchXR Results (most recent):Results from [facility] on 11/07/18XR CHEST PORT Narrative History:Respiratory [...] the procedure or anatomicalre gions you entered.Example: .BSHSILASTIMGCAT[[id number]:3This example wo uld display results for the last three orders with an externalprocedure ID of [id number] he patient is: [] acutely ill Risk of deterioration: [] moderate [x] criticall y ill [x] highActive Problems: COPD (chronic obstructive pulmonary disease) ([facility]) (11/08/2018) Acute respiratory distress (11/08/2018) Pneumonia (11/08/2018) COPD exacerbation ([facility]) (11/08/2018)IMPRESSION:1. IMPENDING ACUTE RESPIRATORY FAILURE2. ASPIRATION PNEUMNOA3. ASPIRATION4. SEPSIS5. S/P SURGICAL JEJUJOSTOMY TUB E INSERTION 11/18/20186. MENTAL RETARDATIONPLAN:1. RIGHT NOW BIPAP STA RTED BUT HE IS CONFUSED MAY NOT BE ABLE TO CLEARSECRETIONS2. HE MAY NEED INTUBATIO N AND VENTILATOR SUPPORT .3. \\3 TRANSFER TO [facility] , DISCUSSED WITH WITH CHARGE NURSE [...] Supporting Document(s ) ID Date Data Source [id number] 11/19/2018 12:42:02 PM EDT [facility] Name Value Range Interpretation Description Data Sup porting Code Source(s) Document(s ) pH of Arterial 7.40 7.35-7.4 [facility] - blood 5 [facility] Hospital Carbon dioxide 60 mmHg 32-48 Above high normal [facility] - [Partial Community pressure] in Hospital Arterial blood Oxygen 76 mmHg 83-108 Below low normal [facility] - [Partial Community pressure] in Hospital Arterial blood Carbon 39 19-24 Above high normal [facility] - dioxide, total mmol/L [facility] [Moles/volume] Hospital in Arterial blood Bicarbonate 37 21-28 Above high normal [facility] - [Moles/volume] mmol/L [facility] in Arterial Hospital blood Oxygen 96 % 94-98 [facility] - saturation in [facility] Blood Hospital Base excess in 10.0 0-3 Above high normal [facility] - Arterial blood mmol/L [facility] by calculation Hospital Body site [facility] - [facility] Hospital Oxygen gas [facility] - flow Oxygen [facility] delivery Hospital system Oxygen/Inspire 45.0 % [facility] - d gas [facility] Respiratory Hospital system --on ventilator Ventilation [facility] - mode [facility] [Identifier] Hospital Ventilator PEEP 7 [facility] - Respiratory [facility] system Hospital Pressure 12 [facility] - support [facility] setting Hospital Ventilator Respiratory 16 [facility] - rate [facility] Hospital Service [address] [facility] - comment [facility] ID Date Data Source [id number] 11/19/2018 11:33:27 AM EDT [facility] ID Progress Note11/19/2018Subjective:Patie nt with MR,schizophrenia,non verbal.Unable to provide any history.Afebrile but tachyca rdic, he is S/p peg placement.Wbc up trending to 25K,Objective:Vitals:Patient Vitals f or the past 24 hrs: BP Temp Pulse Resp TyC26011/19/18 0746 (!) 135/97 98 F (36.7 C) [...] adult no.4 with vit K 10 mL, [id number] mg, folic acid 1 mg infusion IntraVENous Q24H albuterol-i pratropium (DUO-NEB) 2.5 MG-0.5 MG/3 ML 3 mL Nebulization Q4H PRN cinacalcet (SENSIP AR) tablet 60 mg 60 mg Oral DAILY budesonide (PULMICORT) 500 mcg/2 ml nebu lizer suspension 500 mcg NebulizationBID RTLabs:Recent Labs 60606 606WBC 25.4* 18.9* 9.5HGB 15.3 14.9 14.6PLT [...] Supporting Document(s ) ID Date Data Source [id number] 11/19/2018 11:18:30 AM EDT [facility] History:Respiratory difficulty.FINDINGS: A frontal portable view [...] Supporting Document(s ) ID Date Data Source [id number] 11/19/2018 09:44:01 AM EDT [facility] Progress NotePatient: Evelio Carlin SSN: [id number] of : 1950 Age: 68 y.o. Sex: [...] Name Value Range Interpretation Code Description Data [facility] Supporting Document(s ) ID Date Data Source [id number] 11/19/2018 07:23:03 AM EDT [facility] Bedside and Verbal shift change report g ellynen to Allyson Mar RN (oncomingnurse) by Marni Regalado RN (offgoing nurse). Report included the followinginformation SBAR and Kardex. Name Value Range Interpretation Code Description Data [facility] rce(s) Supporting Document(s ) ID Date Data Source [id number] 11/19/2018 09:42:32 AM EDT [facility] Name Value Range Interpretation Description Data Sup porting Code Source(s) Document(s ) Leukocytes 25.4 4.8-10.6 Above high normal [facility] - [#/volume] in K/uL Community Blood by Hospital Automated count Erythrocytes 4.56 4.70-6.0 Below low normal [facility] - [#/volume] in M/uL 0 [facility] Blood by [facility] Automated count Hemoglobin 15.3 14.0-18. [facility] - [Mass/volume] in g/dL 0 [facility] Hematocrit 43.5 % 42.0-52. [facility] - [Volume 0 Community Fraction] of Hospital Blood by Automated count Erythrocyte mean 95.4 FL 81.0-94. Above high normal [facility] - corpuscular 0 [facility] volume [Entitic Hospital volume] by Automated count Erythrocyte mean 33.6 PG 27.0-35. [facility] - corpuscular 0 [facility] hemoglobin Hospital [Entitic mass] by Automated count Erythrocyte mean 35.2 30.7-37. [facility] - corpuscular g/dL 3 [facility] hemoglobin Hospital concentration [Mass/volume] by Automated count Erythrocyte 14.2 % 11.5-14. Above high normal [facility] - distribution 0 Community width [Ratio] by Hospital Automated count Platelets 224 K/uL 130-400 [facility] - [#/volume] in [facility] Blood by [facility] Automated count Platelet mean 9.9 FL 9.2-11.8 [facility] - volume [Entitic Community volume] in Blood Hospital by Automated count Segmented 87 % 48.0-72. Above high normal [facility] - neutrophils/100 0 Community leukocytes in Hospital Blood Lymphocytes/100 10 % 18.0-40. Below low normal [facility] - leukocytes in 0 [facility] Hospital Monocytes/100 3 % 2.0-12.0 [facility] - leukocytes in [facility] Eosinophils/100 0 % 0.0-7.0 [facility] - leukocytes in [facility] Basophils/100 0 % 0.0-3.0 [facility] - leukocytes in [facility] Erythrocyte [facility] - morphology Community finding Hospital [Identifier] in Blood Platelet [facility] - adequacy Community [Presence] in Hospital Blood by Light microscopy Differential [facility] - cell count [facility] method Blood [facility] Segmented 21.9 1.5-6.6 Above high normal [facility] - neutrophils K/UL Community [#/volume] in Hospital Blood Lymphocytes 2.6 K/UL 1.5-3.5 [facility] - [#/volume] in [facility] Monocytes 0.8 K/UL 0.0-1.0 [facility] - [#/volume] in [facility] Blood Hospital Eosinophils 0.0 K/UL 0.0-0.7 [facility] - [#/volume] in [facility] Blood Hospital Basophils 0.0 K/UL 0.0-0.1 [facility] - [#/volume] in [facility] Blood Hospital ID Date Data Source [id number] 11/19/2018 08:16:13 AM EDT [facility] Name Value Range Interpretation Description Data Sup porting Code Source(s) Document(s ) Sodium 140 136-145 [facility] - [Moles/volume mmol/L Community ] in Serum or Hospital Plasma Potassium 3.2 3.5-5.1 Below low normal [facility] - [Moles/volume mmol/L Community ] in Serum or Hospital Plasma RESULTS CONFIRMED Chloride [Moles/volume] in 98 mmol/L 98-107 [facility] Serum or Plasma Hospital Carbon dioxide, total 34 mmol/L 21-32 Above high [facility] Community [Moles/volume] in Serum or normal Hos pital Plasma Anion gap in Serum or 11 mmol/L 10-20 [facility] - [facility] Plasma Hospital Glucose [Mass/volume] in 168 mg/dL 74-106 Above high [facility] Serum or Plasma normal Hospital Urea nitrogen 17 mg/dL 7-18 [facility] - Communit y [Mass/volume] in Serum or Hosp ital Plasma Creatinine [Mass/volume] 0.47 mg/dL 0.70-1.30 Below low normal [facility] - Community in Serum or Plasma Hospital Glomerular filtration >60 [facility] rate/1.73 sq M predicted Hospi krystian among blacks [Volume Rate/Area] in Serum or Plasma by Creatinine-based formula (MDRD) Glomerular filtration >60 [facility] - [facility] rate/1.73 sq M predicted Hospi krystian among non-blacks [Volume Rate/Area] in Serum or Plasma by Creatinine-based formula (MDRD) Calcium [Mass/volume] in 10.5 mg/dL 8.5-10.1 Above high [facility] Serum or Plasma normal Hospital Bilirubin.total 1.3 [...] Plasma Protein [Mass/volume] in 6.4 g/dL 6.4-8.2 [facility] Hospital Albumin [Mass/volume] in 3.1 g/dL 3.5-4.7 Below low normal [facility] - [facility] Serum or Plasma by Hospital Bromocresol purple (BCP) dye binding method Globulin [Mass/volume] in 3.3 g/dL 1.7-4.7 [facility] Serum by calculation Hospital Albumin/Globulin [Mass 0.9 0.7-2.8 [facility] Ratio] in Serum or Plasma Hosp ital ID Date Data Source [id number] 11/19/2018 08:10:37 AM EDT [facility] Name Value Range Interpretation Description Data Sup porting Code Source(s) Document(s ) Magnesium 1.7 mg/dL 1.6-2.6 [facility] - [Mass/volume] Community in Serum or Hospital Plasma ID Date Data Source [id number] 11/18/2018 08:42:00 PM EDT [facility] Problem: Pressure Injury - Risk ofGoal: [...] Supporting Document(s ) ID Date Data Source [id number] 11/18/2018 07:17:34 PM EDT [facility] Bedside and Verbal shift change report carol pham to Marni Regalado RN (oncomingnurse) by Yuki Ohara RN (offgoing nurse) . Report included the following information SBAR,Intake/Output, MAR, Recent Results. Name Value Range Interpretation Code Description Data Harriett rce(s) Supporting Document(s ) ID Date Data Source [id number] 11/18/2018 06:38:20 PM EDT [facility] ID Progress Note11/18/2018Subjective:Patie nt with MR,schizophrenia,non verbal.Unable to provide any history.AfebrileS/p peg plac ement.Wbc elevated to 18,900Objective:Vitals:Patient Vitals fo r the past 24 hrs: BP Temp Pulse Resp [id number]/18/18 0723 124/71 97.8 F (36.6 C) 63 [...] Supporting Document(s ) ID Date Data Source [id number] 11/18/2018 04:12:51 PM EDT [facility] Faxed YUAN to Only, informed liais on anticipated discharge Saturday perMD. Name Value Range Interpretation Code Description Data Harriett rce(s) Supporting Document(s ) ID Date Data Source [id number] 11/18/2018 02:06:15 PM EDT [facility] YUAN Completed. Name Value Range Interpretation Code Description Data [facility] rce(s) Supporting Document(s ) ID Date Data Source [id number] 11/18/2018 01:28:40 PM EDT [facility] PULMONARY/ CCM- Consult NotePatient: Ivelisse Carlin [...] 2.5 MG-0.5 MG/3 ML, 3 mL, Nebulization, [id number], Letty Kaye MD, 3 mL at 11/18/18 [...] adult no.4 with vit K 10 mL, [id number] mg, folic acid 1 mg infusion, , [...] 11/18/18 0659 11/18/18 0700 - 11/19/18 0659Shift 2244-5335 2622-0534 24 Hour To krystian 8217-2170 4214-2600 24 Hour TotalINTAKEI.V.(mL/kg/hr) 50(0.1) 50(0) 150 150 [...] 3 3Shift Total(mL/kg) 3(0.1) 850(15.2) 853 (15.2)NET 29 -239 -800 350 350Weight (kg) 56 56 56 [...] the last 72 hours.Cultures:No results found for: [employer] SLab ResultsComponent Value Date/Time Culture result: NO [...] images were obtained and reviewed on a [employer] d viewingworkstation and directly supervised. Contrast: A [...] Problem s: COPD (chronic obstructive pulmonary disease) ([facility]) (11/08/2018) Acute respir atory distress (11/08/2018) Pneumonia (11/08/2018) COPD exacerbation ([facility]) () Acute resp failure combined, pneumonia [...] Supporting Document(s ) ID Date Data Source [id number] 11/18/2018 08:19:53 AM EDT [facility] Progress NotePatient: Evelio Carlin SSN: [id number] of : 1950 Age: 68 y.o. Sex: [...] Supporting Document(s ) ID Date Data Source [id number] 11/18/2018 07:55:14 AM EDT [facility] - [facility] [place], [place] [address]NPKXPYA: EVELIO CARLINMRN: [id number]: 1ACCT#: [id number] DATE: 11/07/2018 OPERATIVE REPORTPROCEDURE DATE: 11/17/2018SURGEON: GABRIELLA [...] and the stomach was withinreach with a [place] c lamp. In fact, two Ravi's were [...] left costal margin in the midclavicular line. [id number] Lozano was placed through the incision and [...] 15:25 :17/EL /s_[id number]/v_mervatuka_pJob #: [id number] / [id number] Name Value Range Interpretation Code Description Data Harriett rce(s) Supporting Document(s ) ID Date Data Source [id number] 11/18/2018 08:53:39 AM EDT [facility] - [facility] Name Value Range Interpretation Description Data Sup porting Code Source(s) Document(s ) Sodium 134 136-145 Below low normal [facility] - [Moles/volume] in mmol/L [facility] Serum or Plasma Hospital Potassium 4.2 3.5-5.1 [facility] - [Moles/volume] in mmol/L [facility] Serum or Plasma Hospital Chloride 98 98-107 [facility] - [Moles/volume] in mmol/L [facility] Serum or Plasma Hospital Carbon dioxide, 32 21-32 [facility] - total mmol/L Community [Moles/volume] in Hospital Serum or Plasma Anion gap in Serum 9 10-20 Below low normal [facility] - or Plasma mmol/L [facility] Hospital Glucose 110 74-106 Above high [facility] - [Mass/volume] in mg/dL normal [facility] Serum or Plasma Hospital Urea nitrogen 11 7-18 [facility] - [Mass/volume] in mg/dL [facility] Serum or Plasma Hospital Creatinine 0.49 0.70-1. Below low normal [facility] - [Mass/volume] in mg/dL 30 [facility] Serum or Plasma Hospital Glomerular >60 [facility] [...] [facility] Plasma Hospital Bilirubin.total 1.1 0.2-1.0 Above high [facility] - [Mass/volume] in mg/dL normal [facility] Serum or Plasma [facility] Alanine 30 U/L 13-61 [facility] - aminotransferase Community [Enzymatic Hospital activity/volume] in Serum or Plasma Aspartate 19 U/L 15-37 [facility] - aminotransferase Community [Enzymatic Hospital activity/volume] in Serum or Plasma by With P-5'-P Alkaline 44 U/L 45-117 Below low normal [facility] - phosphatase Community [Enzymatic Hospital activity/volume] in Serum or Plasma Protein 5.7 6.4-8.2 Below low normal [facility] - [Mass/volume] in g/dL [facility] Serum or Plasma [facility] Albumin 2.5 3.5-4.7 Below low normal [facility] - [Mass/volume] in g/dL [facility] Serum or Plasma by [facility] Bromocresol purple (BCP) dye binding method Globulin 3.2 1.7-4.7 [facility] - [Mass/volume] in g/dL [facility] Serum by [facility] calculation Albumin/Globulin 0.8 0.7-2.8 [facility] - [Mass Ratio] in [facility] Serum or Plasma Hospital ID Date Data Source [id number] 11/18/2018 08:53:39 AM EDT [facility] Name Value Range Interpretation Description Data Sup porting Code Source(s) Document(s ) Magnesium 1.8 mg/dL 1.6-2.6 [facility] - [Mass/volume] Community in Serum or [facility] Plasma ID Date Data Source [id number] 11/18/2018 08:37:51 AM EDT [facility] Name Value Range Interpretation Description Data Sup porting Code Source(s) Document(s ) Leukocytes 18.9 4.8-10.6 Above high normal [facility] - [#/volume] in K/uL [facility] Blood by [facility] Automated count Erythrocytes 4.46 4.70-6.0 Below low normal [facility] - [#/volume] in M/uL 0 [facility] Blood by Hospital Automated count Hemoglobin 14.9 14.0-18. [facility] - [Mass/volume] in g/dL 0 [facility] Blood [facility] Hematocrit 41.9 % 42.0-52. Below low normal [facility] - [Volume 0 Community Fraction] of Hospital Blood by Automated count Erythrocyte mean 93.9 FL 81.0-94. [facility] - corpuscular 0 Community volume [Entitic Hospital volume] by Automated count Erythrocyte mean 33.4 PG 27.0-35. [facility] - corpuscular 0 [facility] hemoglobin Hospital [Entitic mass] by Automated count Erythrocyte mean 35.6 30.7-37. [facility] - corpuscular g/dL 3 [facility] concentration [Mass/volume] by Automated count Erythrocyte 13.9 % 11.5-14. [facility] - distribution 0 Community width [Ratio] by Hospital Automated count Platelets 207 K/uL 130-400 [facility] - [#/volume] in [facility] Blood by Hospital Automated count Platelet mean 9.5 FL 9.2-11.8 [facility] - volume [Entitic Community volume] in [facility] Hospital by Automated count Segmented 89 % 48.0-72. Above high normal [facility] - neutrophils/100 0 Community leukocytes in Hospital Blood Lymphocytes/100 7 % 18.0-40. Below low normal [facility] - leukocytes in 0 [facility] Monocytes/100 4 % 2.0-12.0 [facility] - leukocytes in [facility] Eosinophils/100 0 % 0.0-7.0 [facility] - leukocytes in [facility] Blood [facility] Basophils/100 0 % 0.0-3.0 [facility] - leukocytes in [facility] Segmented 16.7 1.5-6.6 Above high normal [facility] - neutrophils K/UL Community [#/volume] in Hospital Blood Lymphocytes 1.3 K/UL 1.5-3.5 Below low normal [facility] - [#/volume] in [facility] Monocytes 0.8 K/UL 0.0-1.0 [facility] - [#/volume] in [facility] Eosinophils 0.0 K/UL 0.0-0.7 [facility] - [#/volume] in [facility] Basophils 0.0 K/UL 0.0-0.1 [facility] - [#/volume] in [facility] Differential [facility] - cell count [facility] Immature 0 % 0.0-2.0 [facility] - granulocytes/100 Community leukocytes in Hospital Blood by Automated count ID Date Data Source [id number] 11/18/2018 07:32:26 AM EDT [facility] Placed a call and spoke to Dr. Reinier re garding mittens order. Name Value Range Interpretation Code Description Data [facility] rce(s) Supporting Document(s ) ID Date Data Source [id number] 11/18/2018 06:55:20 AM EDT [facility] Bedside and Verbal shift change report carol pham to Yuki Ohara RN (oncomingnurse) by Marni Regalado RN (offgoing nurse). Report included the followinginformation SBAR and Kardex. Name Value Range Interpretation Code Description Data [facility] rce(s) Supporting Document(s ) ID Date Data Source [id number] 11/17/2018 07:13:31 PM EDT [facility] Bedside and Verbal shift change report carol ivten to Marni Regalado RN (oncomingnurse) by Yuki Ohara RN (offgoing mason se). Report included the following information SBAR,Intake/Output, MAR, Rec ent Results and Cardiac Rhythm NSR. Name Value Range Interpretation Code Description Data [facility] Supporting Document(s ) ID Date Data Source [id number] 11/17/2018 05:25:09 PM EDT [facility] ID Progress Note11/17/2018Subjective:Patie nt with MR,schizophrenia,non verbal.Unable to provide any history.AfebrileS/p peg plac ement.Objective:Vitals:Patient Vitals for the past 24 hrs: BP Temp Pulse Resp TsB483/0 08/31 1605 103/47 - 83 16 95 [...] adult no.4 with vit K 10 mL, [id number] mg, folic acid 1 mg infu elio IntraVENous Q24H dextrose 5 % - 0.45% NaCl infusion 50 mL/hr IntraVENous CONT INUOUS albuterol-ipratropium (DUO-NEB) 2.5 MG-0.5 MG/3 ML 3 mL Nebulization Q4H PA N cinacalcet (SENSIPAR) tablet 60 mg 60 [...] Supporting Document(s ) ID Date Data Source [id number] 11/17/2018 05:00:40 PM EDT [facility] TRANSFER - IN REPORT:Verbal report recei [...] Supporting Document(s ) ID Date Data Source [id number] 11/17/2018 04:16:28 PM EDT [facility] TRANSFER - OUT REPORT:Verbal report give [...] Name Value Range Interpretation Code Description Data [facility] rce(s) Supporting Document(s ) ID Date Data Source [id number] 11/17/2018 03:27:50 PM EDT [facility] Pt transferred to OR for feeding tube pl acement in early afternoon. VS stable.Wrist restraints in place. Sister to accompany pt. ID on left ankle still intactand transport made aware. Name Value Range Interpretation Code Description Data [facility] rce(s) Supporting Document(s ) ID Date Data Source [id number] 11/17/2018 03:01:09 PM EDT [facility] BRIEF OPERATIVE NOTEDate of Procedure: Preoperative Diagnosis: failure to thrivePostoperative Diagnosis: failure t o thriveProcedure(s):GASTROSTOMY TUBE PLACEMENT and cut toe and finger nailsSu rgeon(s) and Role: * Letty Kaye MD - Primary * Nikos Corral MD - Assist ingSurgical Building Attendant: Dr Purcellurgical Staff:Circ-1: Katiuska Louis, RNScrub Tech-1: Luís ZamoraEvent Time In Time OutIncision Start 11/17/2018 1330Incisio n Close 11/17/2018 1435Anesthesia: GeneralEstimated Blood Loss: minimalSpec imens: * No specimens in log *Findings: stomach mobilized with minimal tensionCo mplications: noneImplants: * No implants in log * Name Value Range Interpretation Code Description Data [facility] rce(s) Supporting Document(s ) ID Date Data Source [id number] 11/17/2018 02:27:53 PM EDT [facility] Problem: Nutrition DeficitGoal: *Optimiz e nutritional [...] Supporting Document(s ) ID Date Data Source [id number] 11/17/2018 02:19:53 PM EDT [facility] NUTRITIONFollow Up NoteSubjective: Pt fo r [...] Name Value Range Interpretation Code Description Data [facility] rce(s) Supporting Document(s ) ID Date Data Source [id number] 11/17/2018 01:54:42 PM EDT [facility] Upon receiving the patient in the [facility] area we had to search for the [...] Supporting Document(s ) ID Date Data Source [id number] 11/17/2018 01:54:36 PM EDT [facility] Progress NoteMID-COUNTY PULMONARY ASSOC. ,P.C.Krystian Monae MD., F.C.C.P.Stella Hamilton MD., F.C.C.P. [address] [place] [address] [place], [place] [id number] [phone]: Evelio Carlin Sex: male DOA: 11/07/2018Da te of : 1950 Age: 68 y.o. LOS: LOS: 9 daysSubjective:Mr. Gayla beltran is a 68 y.o. year old male who is being seen for PNEUMONIA ,ASPIRATIONS , C OPD, AND SEVERE MENTAL REATRDATION , PATIENT IS FORSURGICAL GT . INSERTION .Objective:Vital Signs:Patient Vitals for the past 24 hrs: BP Temp Pulse Resp YvJ118/0 08/31 1133 150/70 96.6 F (35.9 C) [...] Value Date/ Time GLU 93 11/17/2018 06:06 [email or web address] Results Procedure Component Value Units Date/Time CULTURE, BLOOD [[id number]] Col lected: 11/07/181999 Order Status: Completed Specimen: Blood Updated: 640 Special Requests: NO SPECIAL REQUESTS Culture result: NO GROWTH 5 DA YS CULTURE, BLOOD [[id number]] Collected: 11/07/182009 Order Status: Completed S pecimen: Blood Updated: 11/12/18640 Special Requests: NO SPECIAL REQUESTS C ulture result: NO GROWTH 5 DAYS STREP PNEUMO AG, URINE [[id number]] Collected: 0700 Order Status: Completed Specimen: Other [...] MEMBRANE ASSAY LEGIONELLA PNEUMOPHILA AG , URINE [[id number]] Collected: 11/08/18 1145 Order Status: Completed Specimen: [...] test. Method IMMUNOCHROMATOGRAPHIC MEMBRANE ASSAY CULTURE, URINE [[id number]] Collect ed: 11/07/18 193 Order Status: Canceled [...] adult no.4 with vit K 10 mL, [id number] mg, folic acid 1 mg infusion IntraVENous [...] Problems: COPD (c hronic obstructive pulmonary disease) ([facility]) (11/08/2018) Acute respiratory distress (11/08/2018) Pneumonia (11/08/2018) COPD exacerbation ([facility]) (11/08/2018)Assessment :COPD (chronic obstructive pulmonary disease) ([facility]) (11/08/2018) Acute respiratory di stress (11/08/2018) Pneumonia (11/08/2018) COPD exacerbation ([facility]) (11/08/2018) Ac [place] resp failure combined, pneumonia R L L [...] Supporting Document(s ) ID Date Data Source [id number] 11/17/2018 11:45:55 AM EDT [facility] GISurgical evaluation noted and richard morin.Remains NPO.Dysphagia - for feeding tube placement (g vs j tube, depending on the anatomy)in the OR today per Dr. Kaye. 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 Report included the following information SBAR, Kardex, MARand Recent Results. Name Value Range Interpretation Code Description Data [facility] rce(s) Supporting Document(s ) ID Date Data Source [id number] 11/17/2018 09:02:35 AM EDT [facility] Name Value Range Interpretation Description Data Sup porting Code Source(s) Document(s ) Leukocytes 9.5 K/uL 4.8-10.6 [facility] - [#/volume] in Community Blood by Hospital Automated count Erythrocytes 4.49 4.70-6.0 Below low normal [facility] - [#/volume] in M/uL 0 Community Blood by Hospital Automated count Hemoglobin 14.6 14.0-18. [facility] - [Mass/volume] in g/dL 0 [facility] Blood Hospital Hematocrit 41.7 % 42.0-52. Below low normal [facility] - [Volume 0 Community Fraction] of Hospital Blood by Automated count Erythrocyte mean 92.9 FL 81.0-94. [facility] - corpuscular 0 Community volume [Entitic Hospital volume] by Automated count Erythrocyte mean 32.5 PG 27.0-35. [facility] - corpuscular 0 [facility] hemoglobin Hospital [Entitic mass] by Automated count Erythrocyte mean 35.0 30.7-37. [facility] - corpuscular g/dL 3 [facility] hemoglobin Hospital concentration [Mass/volume] by Automated count [...] Light microscopy Differential [facility] - cell count [facility] method - Blood Hospital ID Date Data Source [id number] 11/17/2018 07:05:12 AM EDT [facility] - [facility] Name Value Range Interpretation Description Data Sup porting Code Source(s) Document(s ) Phosphate 2.9 mg/dL 2.5-4.9 [facility] - [Mass/volume] Community in Serum or Hospital Plasma ID Date Data Source [id number] 11/17/2018 07:05:12 AM EDT [facility] - [facility] Name Value Range Interpretation Description Data Sup porting Code Source(s) Document(s ) Sodium 139 136-145 [facility] - [Moles/volume] in mmol/L [facility] Serum or Plasma Hospital Potassium 4.4 3.5-5.1 [facility] - [Moles/volume] in mmol/L [facility] Serum or Plasma Hospital Chloride 103 98-107 [facility] - [Moles/volume] in mmol/L [facility] Serum or Plasma Hospital Carbon dioxide, 28 21-32 [facility] - total mmol/L Community [Moles/volume] in Hospital Serum or Plasma Anion gap in Serum 12 10-20 [facility] - or Plasma mmol/L [facility] Hospital Glucose 93 74-106 [facility] - [Mass/volume] in mg/dL [facility] Serum or Plasma Hospital Urea nitrogen 14 7-18 [facility] - [Mass/volume] in mg/dL [facility] Serum or Plasma Hospital Creatinine 0.41 0.70-1. Below low normal [facility] - [Mass/volume] in mg/dL 30 [facility] Serum or Plasma Hospital Glomerular >60 [facility] Bilirubin.total 1.0 0.2-1.0 [facility] - [Mass/volume] in mg/dL [facility] Serum or Plasma Hospital Alanine 30 U/L 13-61 [facility] - aminotransferase Community [Enzymatic Hospital activity/volume] in Serum or Plasma Aspartate 18 U/L 15-37 [facility] - aminotransferase Community [Enzymatic Hospital activity/volume] in Serum or Plasma by With P-5'-P Alkaline 47 U/L 45-117 [facility] - phosphatase Community [Enzymatic Hospital activity/volume] in Serum or Plasma Protein 6.1 6.4-8.2 Below low normal [facility] - [Mass/volume] in g/dL [facility] Serum or Plasma Hospital Albumin 2.9 3.5-4.7 Below low normal [facility] - [Mass/volume] in g/dL [facility] Serum or Plasma by Hospital Bromocresol purple (BCP) dye binding method Globulin 3.2 1.7-4.7 [facility] - [Mass/volume] in g/dL [facility] Serum by Hospital calculation Albumin/Globulin 0.9 0.7-2.8 [facility] - [Mass Ratio] in [facility] Serum or Plasma Hospital ID Date Data Source [id number] 11/17/2018 07:05:12 AM EDT [facility] - [facility] Name Value Range Interpretation Description Data Sup porting Code Source(s) Document(s ) Magnesium 1.9 mg/dL 1.6-2.6 [facility] - [Mass/volume] Community in Serum or Hospital Plasma ID Date Data Source [id number] 11/17/2018 02:44:18 AM EDT [facility] Problem: Non-Violent RestraintsGoal: *No harm/injury to patient while restraints in useOutcome: Progressing Towards GoalGoal : *Patient's dignity will be maintainedOutcome: Progressing Towards G oal Name Value Range Interpretation Code Description Data Harriett rce(s) Supporting Document(s ) ID Date Data Source [id number] 11/16/2018 07:09:59 PM EDT [facility] Bedside and Verbal shift change report g iven to Geovanna Vazquez, NANCY (oncomingnurse) by Mazin Ritter RN (offgoing nurse). Report included thefollowing information SBAR, Kardex, MAR and Recent Results. Name Value Range Interpretation Code Description Data Harriett rce(s) Supporting Document(s ) ID Date Data Source [id number] 11/16/2018 06:39:16 PM EDT [facility] Progress NoteMID-[facility]. ,P.C.Krystian Monae MD., F.C.C.P.Stella Hamilton MD., F.C.C.P. [address] [place] [id number] [place] [phone]: Evelio Carlin Sex: male DOA: [...] 24 hrs: BP Temp Pulse Resp SpO2 Ojlhtw25/04/19 1547 119/59 98.3 F (36.8 C) 69 [...] Component Value Units Date/Patria e CULTURE, BLOOD [[id number]] Collected: 11/07/181999 Order Status: Completed S pecimen: Blood Updated: 11/12/18 0641 Special Requests: NO SPECIAL REQUESTS C ulture result: NO GROWTH 5 DAYS CULTURE, BLOOD [[id number]] Collected: 11/07/18 2 010 Order Status: Completed Specimen: Blood Updated: 11/12/18640 Special Request s: NO SPECIAL REQUESTS Culture result: NO GROWTH 5 DAYS STREP PNEUMO AG, URINE [[id number]] Collected: 11/09/18 0700 Order Status: Completed Specimen: [...] MEMBRANE ASSAY LEG IONELLA PNEUMOPHILA AG, URINE [[id number]] Collected: 11/08/18 1145 Order Status: Completed Specimen: [...] Method IMMUNOCHROMATOGRAPHIC MEMBRANE A SSAY CULTURE, URINE [[id number]] Collected: 11/07/18 1930 Order Status: Canceled Sp ecimen: Urine from Clean catchImages:[email or web address] Chest W Or W Wo ContResult Date: 11/08/2018Examination: CTA Chest ? PE angiography History: Hypo magdy; rule out pneumoniaversus pulmonary embolism Priors: None Technique: Low-d ose, multiplanar,helical CTA chest was performed with bolus IV injection from lung apices tobases. 3D-reformatted images were obtained and reviewed on a [employer]com[employer] d viewingworkstation and directly supervised. Contrast: A [...] adult no.4 with vit K 10 mL, [id number] mg, folic acid 1 mg infusion IntraVENous [...] Problems: COPD (chronic obstru ctive pulmonary disease) ([facility]) (11/08/2018) Acute respiratory distress (11/08/2018) Pneumonia (11/08/2018) COPD exacerbation ([facility]) (11/08/2018)Assessment:COPD (chroni c obstructive pulmonary disease) ([facility]) (11/08/2018) Acute respiratory distress (11/08/2018) Pneumonia (11/08/2018) COPD exacerbation ([facility]) (11/08/2018) Acute r david failure combined, [...] Supporting Document(s ) ID Date Data Source [id number] 11/16/2018 06:32:08 PM EDT [facility] Problem: Pressure Injury - Risk ofGoal: [...] Supporting Document(s ) ID Date Data Source [id number] 11/16/2018 04:29:49 PM EDT [facility] Have discussed the surgical options with Dr Sandro Ovalle and he informs me thatthe medical poa is the patient's sister who lives in [place]. I have put acall into her and left a message to call back. If she gives consent will proceedwith surgical gastrostomy tube possible jejunostomy tu be placement. Name Value Range Interpretation Code Description Data Harriett rce(s) Supporting Document(s ) ID Date Data Source [id number] 11/16/2018 02:34:00 PM EDT [facility] ID Progress Note11/16/2018Subjective:No ne w event overnightPatient with MR,schizophrenia,non verbal.Pt failed sw allow evaluation and multiple attempts to put NG tube wereunsucessfull, GI input noted Unable to provide any history.Legionella and strep pneumo Ag are negativeAfebrileWBC is WNLBlood cx NGTDObjective:Vitals:Patient Vitals for the past 24 hrs: BP Temp Puls e Resp SpO2 Oxmokz08/04/19 0749 128/74 97.2 F (36.2 C) 70 [...] adult no.4 with vit K 10 mL, [id number] mg, folic acid 1 mg infusion IntraVENous [...] Supporting Document(s ) ID Date Data Source [id number] 11/16/2018 08:05:15 AM EDT [facility] Bedside and Verbal shift change report craol pham to Jericho Ritter RN (oncomingnurse) by Geovanna Vazquez, NANCY (offgoing nurse). Rep ort included the following information SBAR, Kardex, MARand Recent Results. Name Value Range Interpretation Code Description Data [facility] rce(s) Supporting Document(s ) ID Date Data Source [id number] 11/16/2018 09:03:37 AM EDT [facility] - [facility] Name Value Range Interpretation Description Data Sup porting Code Source(s) Document(s ) Sodium 138 136-145 [facility] - [Moles/volume] in mmol/L [facility] Serum or Plasma Hospital Potassium 4.2 3.5-5.1 [facility] - [Moles/volume] in mmol/L [facility] Serum or Plasma Hospital Chloride 102 98-107 [facility] - [Moles/volume] in mmol/L [facility] Serum or Plasma Hospital Carbon dioxide, 28 21-32 [facility] - total mmol/L Community [Moles/volume] in Hospital Serum or Plasma Anion gap in Serum 11 10-20 [facility] - or Plasma mmol/L [facility] Glucose 98 74-106 [facility] - [Mass/volume] in mg/dL [facility] Serum or Plasma Hospital Urea nitrogen 13 7-18 [facility] - [Mass/volume] in mg/dL [facility] Serum or Plasma Hospital Creatinine 0.51 0.70-1. Below low normal [facility] - [Mass/volume] in mg/dL 30 [facility] Serum or Plasma Hospital Glomerular >60 [facility] Bilirubin.total 1.0 0.2-1.0 [facility] - [Mass/volume] in mg/dL [facility] Serum or Plasma Hospital Alanine 31 U/L 13-61 [facility] - aminotransferase Community [Enzymatic Hospital activity/volume] in Serum or Plasma Aspartate 20 U/L 15-37 [facility] - aminotransferase Community [Enzymatic Hospital activity/volume] in Serum or Plasma by With P-5'-P Alkaline 48 U/L 45-117 [facility] - phosphatase Community [Enzymatic Hospital activity/volume] in Serum or Plasma Protein 6.6 6.4-8.2 [facility] - [Mass/volume] in g/dL [facility] Serum or Plasma [facility] Albumin 3.0 3.5-4.7 Below low normal [facility] - [Mass/volume] in g/dL [facility] Serum or Plasma by Hospital Bromocresol purple (BCP) dye binding method Globulin 3.6 1.7-4.7 [facility] - [Mass/volume] in g/dL [facility] Serum by [facility] calculation Albumin/Globulin 0.8 0.7-2.8 [facility] - [Mass Ratio] in [facility] Serum or Plasma Hospital ID Date Data Source [id number] 11/16/2018 09:03:37 AM EDT [facility] [place] Interpretation Description Data Sup porting Code Source(s) Document(s ) Phosphate 2.9 mg/dL 2.5-4.9 [facility] - [Mass/volume] Community in Serum or Hospital Plasma ID Date Data Source [id number] 11/16/2018 09:03:37 AM [facility] Interpretation Description Data Sup porting Code Source(s) Document(s ) Magnesium 1.9 mg/dL 1.6-2.6 [facility] - [Mass/volume] Community in Serum or Hospital Plasma ID Date Data Source [id number] 11/16/2018 08:55:07 AM EDT [facility] [place] Range Interpretation Description Data Sup porting Code Source(s) Document(s ) Leukocytes 10.2 4.8-10.6 [facility] - [#/volume] in K/uL [facility] Blood by Hospital Automated count Erythrocytes 4.69 4.70-6.0 Below low normal [facility] - [#/volume] in M/uL 0 Community Blood by Hospital Automated count Hemoglobin 15.6 14.0-18. [facility] - [Mass/volume] in g/dL 0 [facility] Hematocrit 43.4 % 42.0-52. [facility] - [Volume 0 Community Fraction] of Hospital Blood by Automated count Erythrocyte mean 92.5 FL 81.0-94. [facility] - corpuscular 0 [facility] volume [Entitic Hospital volume] by Automated count Erythrocyte mean 33.3 PG 27.0-35. [facility] - corpuscular 0 [facility] hemoglobin Hospital [Entitic mass] by Automated count Erythrocyte mean 35.9 30.7-37. [facility] - corpuscular g/dL 3 [facility] hemoglobin Hospital concentration [Mass/volume] by Automated count [...] 0 [facility] Blood Hospital Monocytes/100 6 % 2.0-12.0 [facility] - leukocytes in [facility] Eosinophils/100 0 % 0.0-7.0 [facility] - leukocytes in [facility] Blood Hospital Basophils/100 0 % 0.0-3.0 [facility] - leukocytes in [facility] Segmented 7.5 K/UL 1.5-6.6 Above high normal [facility] - neutrophils Community [#/volume] in Hospital Blood Lymphocytes 2.0 K/UL 1.5-3.5 [facility] - [#/volume] in [facility] Blood Hospital Monocytes 0.6 K/UL 0.0-1.0 [facility] - [#/volume] in [facility] Blood Hospital Eosinophils 0.0 K/UL 0.0-0.7 [facility] - [#/volume] in [facility] Blood Hospital Basophils 0.0 K/UL 0.0-0.1 [facility] - [#/volume] in [facility] Blood [facility] Differential [facility] - cell count [facility] Blood [facility] Immature 1 % 0.0-2.0 [facility] - granulocytes/100 Community leukocytes in Hospital Blood by Automated count ID Date Data Source [id number] 11/16/2018 02:15:26 AM EDT [facility] Problem: Non-Violent RestraintsGoal: Non -violent Restraints:Patient InterventionsOutcome: Progressing Toward s Goal Name Value Range Interpretation Code Description Data Harriett rce(s) Supporting Document(s ) ID Date Data Source [id number] 11/15/2018 07:02:56 PM EDT [facility] Bedside and Verbal shift change report carol pham to Geovanna Vazquez RN (oncoming nurse)by Yuki Ohara RN (offgoing nurse) . Report included the following information SBAR,Intake/Output, MAR, Recent Results. Name Value Range Interpretation Code Description Data Harriett rce(s) Supporting Document(s ) ID Date Data Source [id number] 11/15/2018 03:45:54 PM EDT [facility] ID Progress Note11/14/2018Subjective:No ne w event overnightPatient with MR,schizophrenia,non verbal.Pt failed sw allow evaluation and multiple attempts to put NG tube wereunsucessfull, GI input noted Unable to provide any history.Legionella and strep pneumo Ag are negativeAfebrileWBC is WNLBlood cx NGTDObjective:Vitals:Patient Vitals for the past 24 hrs: BP Temp Puls e Resp [id number]/14/18 0827 134/88 98.1 F (36.7 C) 100 [...] adult no.4 with vit K 10 mL, [id number] mg, folic acid 1 mg infusion IntraVENous [...] Supporting Document(s ) ID Date Data Source [id number] 11/15/2018 03:45:38 PM EDT [facility] ID Progress Note11/15/2018Subjective:No ne w event overnightPatient with MR,schizophrenia,non verbal.Pt failed sw allow evaluation and multiple attempts to put NG tube wereunsucessfull, GI input noted Unable to provide any history.Legionella and strep pneumo Ag are negativeAfebrileWBC is WNLBlood cx NGTDObjective:Vitals:Patient Vitals for the past 24 hrs: BP Temp Puls e Resp [id number]/15/18 0724 114/88 96 F (35.6 C) 85 [...] adult no.4 with vit K 10 mL, [id number] mg, folic acid 1 mg infusion IntraVENous [...] Supporting Document(s ) ID Date Data Source [id number] 11/15/2018 02:50:39 PM EDT [facility] Will attempt to reach family to discuss the surgical options. Name Value Range Interpretation Code Description Data Harriett rce(s) Supporting Document(s ) ID Date Data Source [id number] 11/15/2018 01:42:07 PM EDT [facility] ID Progress Note11/15/2018Subjective:No ne w event overnightPatient with MR,schizophrenia,non verbal.Pt failed sw allow evaluation and multiple attempts to put NG tube wereunsucessfull, GI input noted Unable to provide any history.Legionella and strep pneumo Ag are negativeAfebrileWBC is WNLBlood cx NGTDObjective:Vitals:Patient Vitals for the past 24 hrs: BP Temp Puls e Resp [id number]/15/18 0724 114/88 96 F (35.6 C) 85 [...] DysphagiaPlan:1. Continue Iv rocephin.Monica Tadele, [place] 3, [id number] AM Name Value Range Interpretation Code Description Data Harriett rce(s) Supporting Document(s ) ID Date Data Source [id number] 11/15/2018 12:14:57 PM EDT [facility] PULMONARY/ CCM- Consult NotePatient: Ivelisse Carlin [...] MG-0 .5 MG/3 ML, 3 mL, Nebulization, [id number], Stella Hamilton MD, 3 mL at 11/15/18 [...] adult no.4 with vit K 10 mL, [id number] mg, folic acid 1 mg infusion, , [...] - 11/15/18 0659 11/15/18699 - 11/16/18 0659Shift [id number] 5652-1680 24 Hour Total 0700-1 859 8163-5513 24 Hour TotalINTAKEI.V.(mL/kg/hr) 1972(2.8) 1300 (1.8) 3272(2.3) [...] 0.9% sodium chloride 50 mL IVPB) 50 50288 50 50Shift Total(mL/kg) 1971(3 3.3) 1300(22) 3272(55.3) [...] the last 72 hours.Cultures:No results found for: [employer] ResultsComponent Value Date/Time Culture result: NO GROWTH 5 DAYS 11/07/2018 08:1 0 PM Culture result: NO GROWTH 5 DAYS 11/07/2018 08:00 PMImages:Cta Chest W Or W Wo ContResult Date: 11/08/2018Examination: CTA Chest ? PE angiography History: Hypo amgdy; rule out pneumoniaversus pulmonary embolism Priors: None Technique: Low-d ose, multiplanar,helical CTA chest was performed with bolus IV injection from lung apices tobases. 3D-reformatted images were obtained and reviewed on a [employer] d viewingworkstation and directly supervised. Contrast: A [...] Name Value Range Interpretation Code Description [facility] Document(s ) ID Date Data Source [id number] 11/15/2018 07:26:45 AM EDT [facility] Bedside and Verbal shift change report g iven to TERESA OHARA RN (oncoming nurse)by Ana Ramesh (offgoing nurse). Report inc luded the following information SBAR,Kardex, Intake/Output, MAR and Recent Results. Name Value Range Interpretation Code Description Data [facility](s) Supporting Document(s ) ID Date Data Source [id number] 11/15/2018 06:52:01 AM EDT [facility] Bedside and Verbal shift change report carol pham to Ana Yates RN (oncoming nurse)by Yuki Ohara RN (offgoing nurse) . Report included the following information SBAR,Intake/Output, MAR, Recent Results. Name Value Range Interpretation Code Description Data Harriett rce(s) Supporting Document(s ) ID Date Data Source [id number] 11/15/2018 07:39:40 AM EDT [facility] - [facility] Name Value Range Interpretation Description Data Sup porting Code Source(s) Document(s ) Sodium 139 136-145 [facility] - [Moles/volume] in mmol/L [facility] Serum or Plasma Hospital Potassium 4.2 3.5-5.1 [facility] - [Moles/volume] in mmol/L [facility] Serum or Plasma Hospital Chloride 104 98-107 [facility] - [Moles/volume] in mmol/L [facility] Serum or Plasma Hospital Carbon dioxide, 28 21-32 [facility] - total mmol/L Community [Moles/volume] in Hospital Serum or Plasma Anion gap in Serum 11 10-20 [facility] - or Plasma mmol/L [facility] Glucose 108 74-106 Above high [facility] - [Mass/volume] in mg/dL normal [facility] Serum or Plasma Hospital Urea nitrogen 15 7-18 [facility] - [Mass/volume] in mg/dL [facility] Serum or Plasma Hospital Creatinine 0.42 0.70-1. Below low normal [facility] - [Mass/volume] in mg/dL 30 [facility] Serum or Plasma Hospital Glomerular >60 [facility] Bilirubin.total 0.8 0.2-1.0 [facility] - [Mass/volume] in mg/dL [facility] Serum or Plasma Hospital Alanine 27 U/L [...] low normal [facility] - [Mass/volume] in g/dL [facility] Serum or Plasma [facility] Albumin 2.7 3.5-4.7 Below low normal [facility] - [Mass/volume] in g/dL [facility] Serum or Plasma by Hospital Bromocresol purple (BCP) dye binding method Globulin 3.2 1.7-4.7 [facility] - [Mass/volume] in g/dL [facility] Serum by [facility] calculation Albumin/Globulin 0.8 0.7-2.8 [facility] - [Mass Ratio] in [facility] Serum or Plasma Hospital ID Date Data Source [id number] 11/15/2018 07:39:40 AM [facility] Name Value Range Interpretation Description Data Sup porting Code Source(s) Document(s ) Phosphate 2.9 mg/dL 2.5-4.9 [facility] - [Mass/volume] Community in Serum or Hospital Plasma ID Date Data Source [id number] 11/15/2018 07:39:40 AM EDT [facility] Value Range Interpretation Description Data Sup porting Code Source(s) Document(s ) Magnesium 1.9 mg/dL 1.6-2.6 [facility] - [Mass/volume] Community in Serum or Hospital Plasma ID Date Data Source [id number] 11/15/2018 06:55:51 AM EDT [facility] Name Value Range Interpretation Description Data Sup porting Code Source(s) Document(s ) Leukocytes 10.4 4.8-10.6 [facility] - [#/volume] in K/uL [facility] Blood by Hospital Automated count Erythrocytes 4.64 4.70-6.0 Below low normal [facility] - [#/volume] in M/uL 0 [facility] Blood by Hospital Automated count Hemoglobin 15.2 14.0-18. [facility] - [Mass/volume] in g/dL 0 [facility] Blood [facility] Hematocrit 43.4 % 42.0-52. [facility] - [Volume 0 Community Fraction] of Hospital Blood by Automated count Erythrocyte mean 93.5 FL 81.0-94. [facility] - corpuscular 0 Community volume [Entitic Hospital volume] by Automated count Erythrocyte mean 32.8 PG 27.0-35. [facility] - corpuscular 0 [facility] Hospital [Entitic mass] by Automated count Erythrocyte mean 35.0 30.7-37. [facility] - corpuscular g/dL 3 [facility] hemoglobin Hospital concentration [Mass/volume] by Automated count Erythrocyte 14.0 % 11.5-14. [facility] - distribution 0 Community width [Ratio] by Hospital Automated count Platelets 233 K/uL 130-400 [facility] - [#/volume] in [facility] Blood by Hospital Automated count Platelet mean 9.7 FL 9.2-11.8 [facility] - volume [Entitic Community volume] in Blood Hospital by Automated count Segmented 79 % 48.0-72. Above high normal [facility] - neutrophils/100 0 Community leukocytes in Hospital Blood Lymphocytes/100 17 % 18.0-40. Below low normal [facility] - leukocytes in 0 [facility] Blood Hospital Monocytes/100 4 % 2.0-12.0 [facility] - leukocytes in [facility] Blood Hospital Eosinophils/100 0 % 0.0-7.0 [facility] - leukocytes in [facility] Blood Hospital Basophils/100 0 % 0.0-3.0 [facility] - leukocytes in [facility] Blood [facility] Segmented 8.1 K/UL 1.5-6.6 Above high normal [facility] - neutrophils Community [#/volume] in Hospital Blood Lymphocytes 1.8 K/UL 1.5-3.5 [facility] - [#/volume] in [facility] Blood Hospital Monocytes 0.5 K/UL 0.0-1.0 [facility] - [#/volume] in [facility] Blood Hospital Eosinophils 0.0 K/UL 0.0-0.7 [facility] - [#/volume] in [facility] Blood [facility] Basophils 0.0 K/UL 0.0-0.1 [facility] - [#/volume] in [facility] Differential [facility] - cell count [facility] Immature 1 % 0.0-2.0 [facility] - granulocytes/100 Community leukocytes in Hospital Blood by Automated count ID Date Data Source [id number] 11/14/2018 06:33:21 PM EDT [facility] Progress NoteMID-[facility] ,P.C.Krystian Monae MD., F.C.C.P.Stella Hamilton MD., F.C.C.P. [address] [place] [address] [place] [address] [phone]: Evelio Carlin Sex: male DOA: [...] past 24 hrs: BP Temp Pulse Resp [id number]/14/18 1524 128/82 98 F (36. 7 C) [...] ResultsComponent Value Date/Time GLU 85 11/14/2018 05:33 [email or web address] Results Procedure Component Value Units Date/Time CULTURE, BLOOD [[id number]] Col lected: 11/07/181999 Order Status: Completed Specimen: Blood Updated: 640 Special Requests: NO SPECIAL REQUESTS Culture result: NO GROWTH 5 DA YS CULTURE, BLOOD [[id number]] Collected: 11/07/182009 Order Status: Completed S pecimen: Blood Updated: 11/12/18640 Special Requests: NO SPECIAL REQUESTS C ulture result: NO GROWTH 5 DAYS STREP PNEUMO AG, URINE [[id number]] Collected: 0700 Order Status: Completed Specimen: Other [...] MEMBRANE ASSAY LEGIONELLA PNEUMOPHILA AG , URINE [[id number]] Collected: 11/08/18 1145 Order Status: Completed Specimen: [...] test. Method IMMUNOCHROMATOGRAPHIC MEMBRANE ASSAY CULTURE, URINE [[id number]] Collect ed: 11/07/18 1930 Order Status: Canceled [...] adult no.4 with vit K 10 mL, [id number] mg, folic acid 1 mg infusion IntraVENous [...] Problems: COPD (chronic obstru ctive pulmonary disease) ([facility]) (11/08/2018) Acute respiratory distress (11/08/2018) Pneumonia (11/08/2018) COPD exacerbation ([facility]) (11/08/2018)Assessment:COPD (chroni c obstructive pulmonary disease) ([facility]) (11/08/2018) Acute respiratory distress (11/08/2018) Pneumonia (11/08/2018) COPD exacerbation ([facility]) (11/08/2018) Acute r david failure combined, pneumonia R L L AND L L L ON CAT SCAN CHEST acute copd exacer bation P .. E . ruled out. BILATERAL BASAL ATELECTASESPLAN,Monitoring,Iv CEFTRIA XONE AND AZITHROMYCIN D/C Steroids, BRONCHOSPASM RESOLVEDbipap prn [facility] Q[facility]D/W nursing staff.PATIENT MAY NEED P E G OR JEJUNOSTOMY PER DR KAYE . Krystian Monae MD F.C.C.P.November 14, 20186:25 PM Name Value Range Interpretation Code Description Data [facility](s) Supporting Document(s ) ID Date Data Source [id number] 11/14/2018 02:17:28 PM EDT [facility] Echo completed Name Value Range Interpretation Code Description Data [facility](s) Supporting Document(s ) ID Date Data Source [id number] 11/14/2018 02:11:19 PM EDT [facility] Coverage for Dr Sheriff NotePatie nt: Evelio Carlin CSN: [id number] of : 1950 Ag e: 68 y.o. [...] him immunocompromised and at higher riskLetty Kaye, [facility] 2018 Name Value Range Interpretation Code Description Data Harriett rce(s) Supporting Document(s ) ID Date Data Source [id number] 11/14/2018 12:53:40 PM EDT [facility] Progress NotePatient: Evelio Carlin Sex: male DOA: 11/07/2018Date of : 1950 Age: 68 y.o. :[id number]:Reyes Carlin is 68 y.o. male . who [...] past 24 hrs: BP Temp Pulse Resp [id number]/12/18 0745 124/79 97.9 F (36.6 C) 68 [...] adult no.4 with vit K 10 mL, [id number] mg, folic acid 1 mg infusion IntraVENous [...] P OA COPD (chronic obstructive pulmonary disease) ([facility]) ICD-10-CM: J44.9ICD-9-CM: 496 11/08/2018 Unknown Acute respiratory distress ICD-10-CM: R06.03ICD-9-CM: 518. 82 11/08/2018 Unknown Pneumonia ICD-10-CM: J18.9ICD-9-CM: 486 11/08/2018 Unknown [place] PD exacerbation ([facility]) ICD-10-CM: J44.1ICD-9-CM: 491.21 11/08/2018 Unknown Assessment:Acute [...] Supporting Document(s ) ID Date Data Source [id number] 11/14/2018 12:23:15 PM EDT [facility] Progress NotePatient: Evelio Carlin Sex: male DOA: 11/07/2018Date of : 1950 Age: 68 y.o. :[id number]:Reyes Carlin is 68 y.o. male who presented [...] disorder, Kyphosis and Schizophrenia.He was admitted with [facility] nter diag of Acute Hypercapnia, Hypoxia respiratoryfailure, [...] Name Value Range Interpretation Code Description [facility] ) ID Date Data Source [id number] 11/14/2018 12:01:36 PM EDT [facility] Problem: Pneumonia: Discharge OutcomesGo al: *Demonstrates [...] Name Value Range Interpretation Code Description Data [facility] Supporting Document(s ) ID Date Data Source [id number] 11/14/2018 11:49:04 AM EDT [facility] Progress NotePatient: Evelio Carlin Sex: male DOA: 11/07/2018Date of : 1950 Age: 68 y.o. :[id number] Chief Com plaint: Respiratory DistressSubjective:Evelio Carlin is 68 y.o. male who was admitted on 11/07/18 by the hospitalistservice. 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 Severe Intelle ctual disability, Hyperparathyroid, unspecified,personal h/o pulmonary embol us, Anxiety disorder, Kyphosis and Schizophrenia.He was transferred from [facility] for further evaluation and treatment. The facilitytransfer record reporting that maximo izquierdo had wheezing, frequent non productivemoist cough and using accessor y muscles. He had an O2 SAT of 84 % on room airand improved O2 SAT of 92 % on 4 LPM. He was given Duoneb and Solu-Medrol 40 mgIM at the intermediate. The staff reporting that unable to maintain adequate O3Iztoquddna due to patient removing his nasal canula.In [...] Supporting Document(s ) ID Date Data Source [id number] 11/14/2018 09:41:43 AM EDT [facility] Reviewed pts chart from [facility].Gaston Hollins had previously attempted PEG placement however [...] Supporting Document(s ) ID Date Data Source [id number] 11/14/2018 07:09:00 AM EDT [facility] Name Value Range Interpretation Description Data Sup porting Code Source(s) Document(s ) Sodium 139 136-145 [facility] - [Moles/volume] in mmol/L [facility] Serum or Plasma Hospital Potassium 4.2 3.5-5.1 [facility] - [Moles/volume] in mmol/L [facility] Serum or Plasma Hospital Chloride 103 98-107 [facility] - [Moles/volume] in mmol/L [facility] Serum or Plasma Hospital Carbon dioxide, 26 21-32 [facility] - total mmol/L Community [Moles/volume] in Hospital Serum or Plasma Anion gap in Serum 14 10-20 [facility] - or Plasma mmol/L [facility] Glucose 85 74-106 [facility] - [Mass/volume] in mg/dL [facility] Serum or Plasma Hospital Urea nitrogen 14 7-18 [facility] - [Mass/volume] in mg/dL [facility] Serum or Plasma Hospital Creatinine 0.46 0.70-1. Below low normal [facility] - [Mass/volume] in mg/dL 30 [facility] Serum or Plasma Hospital Glomerular >60 [facility] [...] [facility] Serum [facility] Plasma [facility] Bilirubin.total 0.7 0.2-1.0 [facility] - [Mass/volume] in mg/dL [facility] Serum or Plasma Hospital Alanine 34 U/L [...] low normal [facility] - [Mass/volume] in g/dL [facility] Serum or Plasma [facility] Albumin 2.9 3.5-4.7 Below low normal [facility] - [Mass/volume] in g/dL [facility] Serum or Plasma by Hospital Bromocresol purple (BCP) dye binding method Globulin 3.2 1.7-4.7 [facility] - [Mass/volume] in g/dL [facility] Serum by [facility] calculation Albumin/Globulin 0.9 0.7-2.8 [facility] - [Mass Ratio] in [facility] Serum or Plasma Hospital ID Date Data Source [id number] 11/14/2018 07:09:00 AM EDT [facility] [place] Value Range Interpretation Description Data Sup porting Code Source(s) Document(s ) Phosphate 3.1 mg/dL 2.5-4.9 [facility] - [Mass/volume] Community in Serum or Hospital Plasma ID Date Data Source [id number] 11/14/2018 07:09:00 AM EDT [facility] Name Value Range Interpretation Description Data Sup porting Code Source(s) Document(s ) Magnesium 1.9 mg/dL 1.6-2.6 [facility] - [Mass/volume] Community in Serum or Hospital Plasma ID Date Data Source [id number] 11/14/2018 07:08:24 AM EDT [facility] Name Value Range Interpretation Description Data Sup porting Code Source(s) Document(s ) Leukocytes 11.0 4.8-10.6 Above high normal [facility] - [#/volume] in K/uL Community Blood by Hospital Automated count Erythrocytes 4.80 4.70-6.0 [facility] - [#/volume] in M/uL 0 [facility] Blood by Hospital Automated count Hemoglobin 15.8 14.0-18. [facility] - [Mass/volume] in g/dL 0 [facility] Blood [facility] Hematocrit 43.9 % 42.0-52. [facility] - [Volume 0 Community Fraction] of Hospital Blood by Automated count Erythrocyte mean 91.5 FL 81.0-94. [facility] - corpuscular 0 Community volume [Entitic Hospital volume] by Automated count Erythrocyte mean 32.9 PG 27.0-35. [facility] - corpuscular 0 [facility] [Entitic mass] by Automated count Erythrocyte mean 36.0 30.7-37. [facility] - corpuscular g/dL 3 [facility] hemoglobin Hospital concentration [Mass/volume] by Automated count [...] 0 [facility] Blood Hospital Monocytes/100 7 % 2.0-12.0 [facility] - leukocytes in [facility] Blood Hospital Eosinophils/100 0 % 0.0-7.0 [facility] - leukocytes in [facility] Blood Hospital Basophils/100 0 % 0.0-3.0 [facility] - leukocytes in [facility] Blood Hospital Segmented 8.2 K/UL 1.5-6.6 Above high normal [facility] - neutrophils Community [#/volume] in Hospital Blood Lymphocytes 2.0 K/UL 1.5-3.5 [facility] - [#/volume] in [facility] Blood Hospital Monocytes 0.7 K/UL 0.0-1.0 [facility] - [#/volume] in [facility] Eosinophils 0.0 K/UL 0.0-0.7 [facility] - [#/volume] in [facility] Basophils 0.0 K/UL 0.0-0.1 [facility] - [#/volume] in [facility] Differential [facility] - cell count [facility] Immature 1 % 0.0-2.0 [facility] - granulocytes/100 Community leukocytes in Hospital Blood by Automated count ID Date Data Source [id number] 11/13/2018 08:08:02 PM EDT [facility] Bedside and Verbal shift change report carol pham to NANCY Grant (oncoming nurse) byYuki Henry RN (offgoing nurse). Report in cluded the following information SBAR and Kardex. Name Value Range Interpretation Code Description Data [facility] rce(s) Supporting Document(s ) ID Date Data Source [id number] 11/13/2018 05:00:18 PM EDT [facility] Suggest initiate EN with Osmolite 1.5 at 25 ml/hr to goal rate of 55ml/hrproviding 1980kcal 83g prot 269g CHO 65g fat 1006 ml free waterSuggest 125 ml free water q3h when D5 discontinued Name Value Range Interpretation Code Description Data [facility] Supporting Document(s ) ID Date Data Source [id number] 11/13/2018 04:59:10 PM EDT [facility] RECOMMENDATION:-suggest initiate EN with Osmolite 1.5 at 25 ml/hr to goal rate of 55ml/hrproviding 1980kcal 83g prot 1006 ml free water-suggest 125 ml free water q3h when D5 discontinuedASSESSMENT:Subjectiv e: pt failed BIN PILER eval past 3 days. Per GI notes, [...] Supporting Document(s ) ID Date Data Source [id number] 11/13/2018 01:45:47 PM EDT [facility] PULMONARY/ CCM- Consult NotePatient: Ivelisse Carlin [...] Duo-Ne b and [facility] Seen earlier today,confused,breathing better. improving.Past Medical History:Diagnosis [...] adult no.4 with vit K 10 mL, [id number] mg, folic acid 1 mg infusion, , [...] Supporting Document(s ) ID Date Data Source [id number] 11/13/2018 12:56:42 PM EDT [facility] Pt resting comfortablyvss afebabd soft n on [...] Supporting Document(s ) ID Date Data Source [id number] 11/13/2018 11:42:14 AM EDT [facility] I spoke to Dr. Hills now. She was made aware that b/l restraint order needs richelle renewed. Name Value Range Interpretation Code Description Data Harriett rce(s) Supporting Document(s ) ID Date Data Source [id number] 11/13/2018 10:08:52 AM EDT [facility] ID Progress Note11/13/2018Subjective:No ne w event overnightPatient with MR,schizophrenia,non verbal.Pt failed sw allow evaluation and multiple attempts to put NG tube wereunsucessfull, GI input noted Unable to provide any history.Legionella and strep pneumo Ag are negativeAfebrileWBC is WNLBlood cx NGTDObjective:Vitals:Patient Vitals for the past 24 hrs: BP Temp Puls e Resp JrT29011/13/18 0835 139/90 97.4 F (36.3 C) 98 [...] no.4 w ith vit K 10 mL, [id number] mg, folic acid 1 mg infusion IntraVENous [...] suspension 500 mcg Nebulizati onBID RTLabs:Recent Labs 08/01/487914 07/31/605473 07/30/457806BEE 9.7 11.7* --HGB 15.1 14.9 --PLT 242 [...] Supporting Document(s ) ID Date Data Source [id number] 11/13/2018 09:45:48 AM EDT [facility] Call put out to Dr. Hills office for re newal of restraint order. Pending callback Name Value Range Interpretation Code Description Data Harriett rce(s) Supporting Document(s ) ID Date Data Source [id number] 11/13/2018 08:47:05 AM EDT [facility] Name Value Range Interpretation Description Data Sup porting Code Source(s) Document(s ) Phosphate 2.9 mg/dL 2.5-4.9 [facility] - [Mass/volume] Community in Serum or Hospital Plasma ID Date Data Source [id number] 11/13/2018 08:47:05 AM EDT [facility] Name Value Range Interpretation Description Data Sup porting Code Source(s) Document(s ) Sodium 140 136-145 [facility] - [Moles/volume] in mmol/L [facility] Serum or Plasma Hospital Potassium 4.0 3.5-5.1 [facility] - [Moles/volume] in mmol/L [facility] Serum or Plasma Hospital Chloride 103 98-107 [facility] - [Moles/volume] in mmol/L [facility] Serum or Plasma Hospital Carbon dioxide, 28 21-32 [facility] - total mmol/L Community [Moles/volume] in Hospital Serum or Plasma Anion gap in Serum 13 10-20 [facility] - or Plasma mmol/L [facility] Glucose 77 74-106 [facility] - [Mass/volume] in mg/dL [facility] Serum or Plasma Hospital Urea nitrogen 16 7-18 [facility] - [Mass/volume] in mg/dL [facility] Serum or Plasma Hospital Creatinine 0.42 0.70-1. Below low normal [facility] - [Mass/volume] in mg/dL 30 [facility] Serum or Plasma Hospital Glomerular >60 [facility] [...] [facility] Serum [facility] Plasma [facility] Bilirubin.total 0.6 0.2-1.0 [facility] - [Mass/volume] in mg/dL [facility] Serum or Plasma Hospital Alanine 31 U/L 13-61 [facility] - aminotransferase Community [Enzymatic Hospital activity/volume] in Serum or Plasma Aspartate 33 U/L 15-37 [facility] - aminotransferase Community [Enzymatic Hospital activity/volume] in Serum or Plasma by With P-5'-P Alkaline 47 U/L 45-117 [facility] - phosphatase Community [Enzymatic Hospital activity/volume] in Serum or Plasma Protein 6.2 6.4-8.2 Below low normal [facility] - [Mass/volume] in g/dL [facility] Serum or Plasma Hospital Albumin 2.9 3.5-4.7 Below low normal [facility] - [Mass/volume] in g/dL [facility] Serum or Plasma by Hospital Bromocresol purple (BCP) dye binding method Globulin 3.3 1.7-4.7 [facility] - [Mass/volume] in g/dL [facility] Serum by Hospital calculation Albumin/Globulin 0.9 0.7-2.8 [facility] - [Mass Ratio] in [facility] Serum or Plasma Hospital ID Date Data Source [id number] 11/13/2018 08:47:05 AM EDT [facility] Name Value Range Interpretation Description Data Sup porting Code Source(s) Document(s ) Magnesium 1.9 mg/dL 1.6-2.6 [facility] - [Mass/volume] Community in Serum or Hospital Plasma ID Date Data Source [id number] 11/13/2018 08:46:45 AM EDT [facility] Name Value Range Interpretation Description Data Sup porting Code Source(s) Document(s ) Leukocytes 9.7 K/uL 4.8-10.6 [facility] - [#/volume] in [facility] Blood by Hospital Automated count Erythrocytes 4.67 4.70-6.0 Below low normal [facility] - [#/volume] in M/uL 0 [facility] Blood by Hospital Automated count Hemoglobin 15.1 14.0-18. [facility] - [Mass/volume] in g/dL 0 [facility] Blood [facility] Hematocrit 43.5 % 42.0-52. [facility] - [Volume 0 Community Fraction] of Hospital Blood by Automated count Erythrocyte mean 93.1 FL 81.0-94. [facility] - corpuscular 0 Community volume [Entitic Hospital volume] by Automated count Erythrocyte mean 32.3 PG 27.0-35. [facility] - corpuscular 0 [facility] Hospital [Entitic mass] by Automated count Erythrocyte mean 34.7 30.7-37. [facility] - corpuscular g/dL 3 [facility] hemoglobin Hospital concentration [Mass/volume] by Automated count Erythrocyte 13.8 % 11.5-14. [facility] - distribution 0 Community width [Ratio] by Hospital Automated count Platelets 242 K/uL 130-400 [facility] - [#/volume] in [facility] Blood by Hospital Automated count Platelet mean 9.6 FL 9.2-11.8 [facility] - volume [Entitic Community volume] in Blood Hospital by Automated count Segmented 78 % 48.0-72. Above high normal [facility] - neutrophils/100 0 Community leukocytes in Hospital Blood Lymphocytes/100 15 % 18.0-40. Below low normal [facility] - leukocytes in 0 [facility] Blood Hospital Monocytes/100 7 % 2.0-12.0 [facility] - leukocytes in [facility] Blood Hospital Eosinophils/100 0 % 0.0-7.0 [facility] - leukocytes in [facility] Blood Hospital Basophils/100 0 % 0.0-3.0 [facility] - leukocytes in [facility] Blood Hospital Segmented 7.6 K/UL 1.5-6.6 Above high normal [facility] - neutrophils Community [#/volume] in Hospital Blood Lymphocytes 1.4 K/UL 1.5-3.5 Below low normal [facility] - [#/volume] in [facility] Blood Hospital Monocytes 0.6 K/UL 0.0-1.0 [facility] - [#/volume] in [facility] Eosinophils 0.0 K/UL 0.0-0.7 [facility] - [#/volume] in [facility] Basophils 0.0 K/UL 0.0-0.1 [facility] - [#/volume] in [facility] Hospital Differential [facility] - cell count [facility] Immature 1 % 0.0-2.0 [facility] - granulocytes/100 Community leukocytes in Hospital Blood by Automated count ID Date Data Source [id number] 11/13/2018 08:47:05 AM EDT [facility] Name Value Range Interpretation Description Data Sup porting Code Source(s) Document(s ) Sodium 140 136-145 [facility] - [Moles/volume] in mmol/L [facility] Serum or [facility] Potassium 4.0 3.5-5.1 [facility] - [Moles/volume] in mmol/L [facility] or [facility] Chloride 103 98-107 [facility] - [Moles/volume] in mmol/L [facility] or [facility] Carbon dioxide, 28 21-32 [facility] - total mmol/L [facility] [Moles/volume] in Zoroastrianism Serum or [facility] Anion gap in Serum 13 10-20 [facility] - or Plasma mmol/L [facility] Glucose 77 74-106 [facility] - [Mass/volume] in mg/dL [facility] or [facility] Urea nitrogen 16 7-18 [facility] - [Mass/volume] in mg/dL [facility] or [facility] Creatinine 0.42 0.70-1. Below low normal [facility] - [Mass/volume] in mg/dL 30 [facility] or [facility] Glomerular >60 [facility] - filtration Good rate/1.73 sq M Zoroastrianism predicted among Hospital blacks [Volume Rate/Area] in Serum or Plasma by Creatinine-based formula (MDRD) Glomerular >60 [facility] - filtration Good rate/1.73 sq M Zoroastrianism predicted among Hospital non-blacks [Volume Rate/Area] in Serum or Plasma by Creatinine-based formula (MDRD) Calcium 9.1 8.5-10. [facility] - [Mass/volume] in mg/dL 1 Good Serum or Plasma [facility] Bilirubin.total 0.6 0.2-1.0 [facility] - [Mass/volume] in mg/dL Good Serum or Plasma [facility] Alanine 31 U/L 13-61 [facility] - aminotransferase Good [Enzymatic Zoroastrianism activity/volume] in Hospital Serum or Plasma Aspartate 33 U/L 15-37 [facility] - aminotransferase Good [Enzymatic Zoroastrianism activity/volume] in Hospital Serum or Plasma by With P-5'-P Alkaline 47 U/L 45-117 [facility] - phosphatase Good [Enzymatic Zoroastrianism activity/volume] in Hospital Serum or Plasma Protein 6.2 6.4-8.2 Below low normal [facility] - [Mass/volume] in g/dL Good Serum or Plasma [facility] Albumin 2.9 3.5-4.7 Below low normal [facility] - [Mass/volume] in g/dL Good Serum or Plasma by Zoroastrianism Bromocresol [facility] (BCP) dye binding method Globulin 3.3 1.7-4.7 [facility] - [Mass/volume] in g/dL Good Serum by [facility] Albumin/Globulin 0.9 0.7-2.8 [facility] - [Mass Ratio] in Good Serum or Plasma [facility] ID Date Data Source [id number] 11/13/2018 08:47:05 AM EDT [facility] Name Value Range Interpretation Description Data Sup porting Code Source(s) Document(s ) Phosphate 2.9 mg/dL 2.5-4.9 [facility] - Good [Mass/volume] Zoroastrianism in Serum or Hospital Plasma ID Date Data Source [id number] 11/13/2018 08:47:05 AM EDT [facility] Name Value Range Interpretation Description Data Sup porting Code Source(s) Document(s ) Magnesium 1.9 mg/dL 1.6-2.6 [facility] - Good [Mass/volume] Zoroastrianism in Serum or Hospital Plasma ID Date Data Source [id number] 11/13/2018 08:46:45 AM EDT [facility] Name Value Range Interpretation Description Data Sup porting Code Source(s) Document(s ) Leukocytes 9.7 K/uL 4.8-10.6 [facility] - [#/volume] in Good Blood by [facility] Erythrocytes 4.67 4.70-6.0 Below low normal [facility] - [#/volume] in M/uL 0 Good Blood by [facility] Hemoglobin 15.1 14.0-18. [facility] - [Mass/volume] in g/dL 0 [facility] Blood [facility] Hematocrit 43.5 % 42.0-52. [facility] - [Volume 0 Good Fraction] of Zoroastrianism Blood by Hospital Automated count Erythrocyte mean 93.1 FL 81.0-94. [facility] - corpuscular 0 Good volume [Entitic Zoroastrianism volume] by Hospital Automated count Erythrocyte mean 32.3 PG 27.0-35. [facility] - corpuscular 0 Good hemoglobin Zoroastrianism [Entitic mass] Hospital by Automated count Erythrocyte mean 34.7 30.7-37. [facility] - corpuscular g/dL 3 Good hemoglobin Zoroastrianism concentration Hospital [Mass/volume] by Automated count Erythrocyte 13.8 % 11.5-14. [facility] - distribution 0 Good width [Ratio] by [facility] Platelets 242 K/uL 130-400 [facility] - [#/volume] in Good Blood by [facility] Platelet mean 9.6 FL 9.2-11.8 [facility] - volume [Entitic Good volume] in Blood Zoroastrianism by Automated Hospital count Segmented 78 % 48.0-72. Above high normal [facility] - neutrophils/100 0 Good leukocytes in [facility] Lymphocytes/100 15 % 18.0-40. Below low normal [facility] - leukocytes in 0 [facility] Blood [facility] Monocytes/100 7 % 2.0-12.0 [facility] - leukocytes in [facility] Eosinophils/100 0 % 0.0-7.0 [facility] - leukocytes in [facility] Blood [facility] Basophils/100 0 % 0.0-3.0 [facility] - leukocytes in [facility] Segmented 7.6 K/UL 1.5-6.6 Above high normal [facility] - neutrophils Good [#/volume] in [facility] Lymphocytes 1.4 K/UL 1.5-3.5 Below low normal [facility] - [#/volume] in [facility] Monocytes 0.6 K/UL 0.0-1.0 [facility] - [#/volume] in [facility] Eosinophils 0.0 K/UL 0.0-0.7 [facility] - [#/volume] in [facility] Basophils 0.0 K/UL 0.0-0.1 [facility] - [#/volume] in [facility] Differential [facility] - cell count [facility] Immature 1 % 0.0-2.0 [facility] - granulocytes/100 [facility] leukocytes in [facility] Hospital Automated count ID Date Data Source [id number] 11/12/2018 10:32:20 PM EDT [facility] Problem: Pressure Injury - Risk ofGoal: [...] Supporting Document(s ) ID Date Data Source [id number] 11/12/2018 07:44:33 PM EDT [facility] PULMONARY/ CCM- Consult NotePatient: Ivelisse Carlin [...] no.4 w ith vit K 10 mL, [id number] mg, folic acid 1 mg infusion, , [...] .5 MG-0.5 MG/3 ML, 3 mL, Nebulization, [id number], Stella Hamilton MD, 3 mL at 1204DataVisit VitalsBP (!) 130/99 (BP 1 Location: Right arm, BP Patient Position : Supine)Pulse 84Temp 96.7 F (35.9 C)Resp 20Ht 5' 2" (1.575 m)Wt 59.1 kg (130 lb 6 .4 oz)SpO2 93%BMI 23.85 kg/m Intake and Output:Date 11/10/18699 - 11/11/18 065 9 11/11/18699 - 11/12/18 0659Shift 7468-8948 2708-6259 24 Hour Total 699-1 859 5058-1556 24 Hour TotalINTAKEI.V.(mL/kg/hr) 1450(2) 1450( 1) Volume [...] the last 72 hours.Cultures:No results found for: [employer] SLab ResultsComponent Value Date/Time Culture result: NO [...] images were obtained and reviewed on a [employer] d viewingworkstation and directly supervised. Contrast: A [...] Supporting Document(s ) ID Date Data Source [id number] 11/12/2018 05:40:03 PM EDT [facility] GASTROENTEROLOGY CONSULTATION NOTENAME: Evelio AlexinDOB: 1950MRN: [id number] Date: 11/12/2018 5:26 PMHi story of Present [...] no.4 w ith vit K 10 mL, [id number] mg, folic acid 1 mg infusion IntraVENous [...] past 8 hrs: BP Temp Pulse Resp [id number]/12/18 1519 132/80 97.5 F (36.4 C) 68 [...] hernia K44.9 COPD (chronic obstructive pulmonary disease) ([facility]) J44.9 Acute respiratory distress R06.03 Pneumonia J 18.9 COPD exacerbation ([facility]) J44.1Assessment: Dysphagia with recurre nt aspiration [...] Supporting Document(s ) ID Date Data Source [id number] 11/12/2018 01:31:41 PM EDT [facility] Progress NoteMID-[facility] ,[facility].Krystian Monae MD., F.C.C.P.Stella Hamilton MD., F.C.C.P. [address] [place] [address] [place] [address] [phone]: Evelio Carlin Sex: male DOA: 11/07/2018Da te of : 1950 Age: 68 y.o. LOS: LOS: 4 daysSubjective:Mr. Gayla beltran is a 68 y.o. year old male who is being seen for BILATERALASPIRATION PNEUMONIA , DYSPHAGIA , HE IS MORE AWAKE AND COMFORTABLE . COUGH IS MINIMAL ..Object britni:Vital Signs:Patient Vitals for the past 24 hrs: BP Temp Pulse Resp [id number]/12/18 0745 124/79 97.9 F (36.6 C) 68 [...] ResultsComponent Value Date/Time GLU 79 11/12/2018 07:20 [email or web address]@[facility] Results Procedure Component Value Units Date/Time CULTURE, BLOOD [[id number]] Col lected: 11/07/181999 Order Status: Completed Specimen: Blood Updated: 640 Special Requests: NO SPECIAL REQUESTS Culture result: NO GROWTH 5 DA YS CULTURE, BLOOD [[id number]] Collected: 11/07/182009 Order Status: Completed S pecimen: Blood Updated: 11/12/18640 Special Requests: NO SPECIAL REQUESTS C ulture result: NO GROWTH 5 DAYS STREP PNEUMO AG, URINE [[id number]] Collected: 0700 Order Status: Completed Specimen: Other [...] MEMBRANE ASSAY LEGIONELLA PNEUMOPHILA AG , URINE [[id number]] Collected: 11/08/18 1145 Order Status: Completed Specimen: [...] test. Method IMMUNOCHROMATOGRAPHIC MEMBRANE ASSAY CULTURE, URINE [[id number]] Order S tatus: Sent Specimen: Urine from Clean catchImages:@[email or web address] Chest W Or W Wo ContResult Date: 11/08/2018Examination: CTA Chest ? PE angiography History: Hypo magdy; rule out pneumoniaversus pulmonary embolism Priors: None Technique: Low-d ose, multiplanar,helical CTA chest was performed with bolus IV injection from lung apices tobases. 3D-reformatted images were obtained and reviewed on a [employer] d viewingworkstation and directly supervised. Contrast: A [...] no.4 w ith vit K 10 mL, mg, folic acid [...] tive Problems: COPD (chronic obstructive pulmonary disease) ([facility]) (11/08/2018) Ac [place] respiratory distress (11/08/2018) Pneumonia (11/08/2018) COPD exacerbation ([facility]) (11/08/2018)Assessment:COPD (chronic obstructive pulmonary disease) ([facility]) () Acute respiratory distress (11/08/2018) Pneumonia (11/08/2018) [place] exacerbation ([facility]) (11/08/2018) Acute resp failure combined, pneumonia R L L AND L L L ON CAT SCAN CHEST acute copd exacerbation P .. E . ruled out. BILAT ERAL BASAL ATELECTASESPLAN,Monitoring,Iv CEFTRIAXONE AND AZITHROMYCIN D/C S teroids, BRONCHOSPASM RESOLVEDbipap prn and at night. DUO NEB QIDD/[facility]. Krystian Monae MD F.C.C.P.November 12, 20181:27 PM Name Value Range Interpretation Code Description Data Harriett rce(s) Supporting Document(s ) ID Date Data Source [id number] 11/12/2018 09:29:48 AM EDT [facility] ID Progress Note11/12/2018Subjective:Siri ent with MR,schizophrenia,non verbal.Pt failed swallow evaluation yesterday and multiple attempts to put NG tube wereunsucessfulUnable to provide any his tory.Legionella and strep pneumo Ag are negativeAfebrileWBC downtrending at 11KB lood cx NGTDObjective:Vitals:Patient Vitals for the past 24 hrs: BP Temp Pulse Resp EnY314/31/19 0745 124/79 97.9 F (36.6 C) 68 [...] no.4 w ith vit K 10 mL, gmsxgumj383 mg, folic acid 1 mg infusion IntraVENous [...] Name Value Range Interpretation Code Description Data [facility] rce(s) Supporting Document(s ) ID Date Data Source [id number] 11/12/2018 07:40:18 AM EDT [facility] Bedside shift change report given to Mino Parada RN (oncoming nurse) byDannielle Medina RN Report included the following informa tion SBAR, Kardex, Intake/Output, MAR, Recent Results and Med RecStatus. Name Value Range Interpretation Code Description Data [facility] rce(s) Supporting Document(s ) ID Date Data Source [id number] 11/12/2018 08:15:38 AM EDT [facility] Name Value Range Interpretation Description Data Sup porting Code Source(s) Document(s ) Phosphate 2.9 mg/dL 2.5-4.9 [facility] - [Mass/volume] Community in Serum or Hospital Plasma ID Date Data Source [id number] 11/12/2018 08:15:38 AM EDT [facility] - [facility] Name Value Range Interpretation Description Data Sup porting Code Source(s) Document(s ) Magnesium 1.8 mg/dL 1.6-2.6 [facility] - [Mass/volume] Community in Serum or Hospital Plasma ID Date Data Source [id number] 11/12/2018 08:15:38 AM EDT [facility] - [facility] Name Value Range Interpretation Description Data Sup porting Code Source(s) Document(s ) Sodium 142 136-145 [facility] - [Moles/volume] in mmol/L [facility] Serum or Plasma Hospital Potassium 3.8 3.5-5.1 [facility] - [Moles/volume] in mmol/L [facility] Serum or Plasma Hospital Chloride 104 98-107 [facility] - [Moles/volume] in mmol/L [facility] Serum or Plasma [facility] Carbon dioxide, 28 21-32 [facility] - total mmol/L [facility] [Moles/volume] in Hospital Serum or Plasma Anion gap in Serum 14 10-20 [facility] - or Plasma mmol/L [facility] Glucose 79 74-106 [facility] - [Mass/volume] in mg/dL [facility] Serum or Plasma [facility] Urea nitrogen 15 7-18 [facility] - [Mass/volume] in mg/dL [facility] Serum or Plasma [facility] Creatinine 0.49 0.70-1. Below low normal [facility] - [Mass/volume] in mg/dL 30 [facility] Serum or Plasma Hospital Glomerular >60 [facility] [...] [facility] Serum [facility] Bilirubin.total 0.6 0.2-1.0 [facility] - [Mass/volume] in mg/dL [facility] Serum or Plasma Hospital Alanine 30 U/L 13-61 [facility] - aminotransferase Community [Enzymatic Hospital activity/volume] in Serum or Plasma Aspartate 43 U/L 15-37 Above high [facility] - aminotransferase normal Community [Enzymatic Hospital activity/volume] in Serum or Plasma by With P-5'-P Alkaline 51 U/L 45-117 [facility] - phosphatase Community [Enzymatic Hospital activity/volume] in Serum or Plasma Protein 6.8 6.4-8.2 [facility] - [Mass/volume] in g/dL [facility] Serum or Plasma [facility] Albumin 3.2 3.5-4.7 Below low normal [facility] - [Mass/volume] in g/dL Community Serum or Plasma by [facility] Bromocresol purple (BCP) dye binding method Globulin 3.6 1.7-4.7 [facility] - [Mass/volume] in g/dL [facility] Serum by [facility] calculation Albumin/Globulin 0.9 0.7-2.8 [facility] - [Mass Ratio] in [facility] Serum or Plasma Hospital ID Date Data Source [id number] 11/12/2018 08:03:08 AM EDT [facility] - [facility] Name Value Range Interpretation Description Data Sup porting Code Source(s) Document(s ) Lactate 0.9 0.4-2.0 [facility] - [Moles/volu MMOL/L Community me] in [facility] Serum or Plasma ID Date Data Source [id number] 11/12/2018 07:56:58 AM EDT [facility] [place] Value Range Interpretation Description Data Sup porting Code Source(s) Document(s ) Leukocytes 11.7 4.8-10.6 Above high normal [facility] - [#/volume] in K/uL [facility] Blood by [facility] Automated count Erythrocytes 4.61 4.70-6.0 Below low normal [facility] - [#/volume] in M/uL 0 [facility] Blood by [facility] Automated count Hemoglobin 14.9 14.0-18. [facility] - [Mass/volume] in g/dL 0 [facility] Blood [facility] Hematocrit 43.4 % 42.0-52. [facility] - [Volume 0 Community Fraction] of Hospital Blood by Automated count Erythrocyte mean 94.1 FL 81.0-94. Above high normal [facility] - corpuscular 0 Community volume [Entitic Hospital volume] by Automated count Erythrocyte mean 32.3 PG 27.0-35. [facility] - corpuscular 0 [facility] [Entitic mass] by Automated count Erythrocyte mean 34.3 30.7-37. [facility] - corpuscular g/dL 3 [facility] hemoglobin [facility] concentration [Mass/volume] by Automated count Erythrocyte [...] 0 [facility] Blood Hospital Monocytes/100 8 % 2.0-12.0 [facility] - leukocytes in [facility] Blood [facility] Eosinophils/100 0 % 0.0-7.0 [facility] - leukocytes in [facility] Blood [facility] Basophils/100 0 % 0.0-3.0 [facility] - leukocytes in [facility] Blood [facility] Segmented 9.2 K/UL 1.5-6.6 Above high normal [facility] - neutrophils Community [#/volume] in Hospital Blood Lymphocytes 1.6 K/UL 1.5-3.5 [facility] - [#/volume] in [facility] Blood Hospital Monocytes 0.9 K/UL 0.0-1.0 [facility] - [#/volume] in [facility] Eosinophils 0.0 K/UL 0.0-0.7 [facility] - [#/volume] in [facility] Basophils 0.0 K/UL 0.0-0.1 [facility] - [#/volume] in [facility] Differential [facility] - cell count [facility] Immature 1 % 0.0-2.0 [facility] - granulocytes/100 Community leukocytes in Hospital Blood by Automated count ID Date Data Source [id number] 11/12/2018 08:15:38 AM EDT [facility] Name Value Range Interpretation Description Data Sup porting Code Source(s) Document(s ) Phosphate 2.9 mg/dL 2.5-4.9 [facility] - [facility] [Mass/volume] [facility]rianism in Serum or Hospital Plasma ID Date Data Source [id number] 11/12/2018 08:15:38 AM EDT [facility] Name Value Range Interpretation Description Data Sup porting Code Source(s) Document(s ) Sodium 142 136-145 [facility] - [Moles/volume] in mmol/L [facility] Serum or [facility] Potassium 3.8 3.5-5.1 [facility] - [Moles/volume] in mmol/L [facility] Serum or Plasma [facility] Chloride 104 98-107 [facility] - [Moles/volume] in mmol/L [facility] Serum or Plasma [facility] Carbon dioxide, 28 21-32 [facility] - total mmol/L Good [Moles/volume] in [facility] Serum or Plasma [facility] Anion gap in Serum 14 10-20 [facility] - or Plasma mmol/L [facility] Glucose 79 74-106 [facility] - [Mass/volume] in mg/dL [facility] Serum or [facility] Urea nitrogen 15 7-18 [facility] - [Mass/volume] in mg/dL [facility] Serum or Plasma [facility] Creatinine 0.49 0.70-1. Below low normal [facility] - [Mass/volume] in mg/dL 30 [facility] Serum or Plasma [facility] Glomerular >60 [facility] - filtration [facility] rate/1.73 sq M [facility]astrianism predicted among Hospital blacks [Volume Rate/Area] in Serum or Plasma by Creatinine-based formula (MDRD) Glomerular >60 [facility] - filtration [facility] rate/1.73 sq M [facility]rianism predicted among Hospital non-blacks [Volume Rate/Area] in Serum or Plasma by Creatinine-based formula (MDRD) Calcium 9.0 8.5-10. [facility] - [Mass/volume] in mg/dL 1 [facility] Serum or Plasma [facility] Bilirubin.total 0.6 0.2-1.0 [facility] - [Mass/volume] in mg/dL [facility] Serum or Plasma [facility] Alanine 30 U/L 13-61 [facility] - aminotransferase [facility] [Enzymatic Zoroastrianism activity/volume] in Hospital Serum or Plasma Aspartate 43 U/L 15-37 Above high [facility] - aminotransferase normal Good [Enzymatic Zoroastrianism activity/volume] in Hospital Serum or Plasma by With P-5'-P Alkaline 51 U/L 45-117 [facility] - phosphatase [facility] [Enzymatic Zoroastrianism activity/volume] in Hospital Serum or Plasma Protein 6.8 6.4-8.2 [facility] - [Mass/volume] in g/dL [facility] Serum or Plasma [facility] Albumin 3.2 3.5-4.7 Below low normal [facility] - [Mass/volume] in g/dL [facility] Serum or Plasma by Zoroastrianism Bromocresol [facility] (BCP) dye binding method Globulin 3.6 1.7-4.7 [facility] - [Mass/volume] in g/dL [facility] Serum by [facility] Albumin/Globulin 0.9 0.7-2.8 [facility] - [Mass Ratio] in [facility] Serum or Plasma [facility] ID Date Data Source [id number] 11/12/2018 08:15:38 AM EDT [facility] Name Value Range Interpretation Description Data Sup porting Code Source(s) Document(s ) Magnesium 1.8 mg/dL 1.6-2.6 [facility] - [facility] [Mass/volume] Zoroastrianism in Serum or [facility] Plasma ID Date Data Source [id number] 11/12/2018 08:03:08 AM EDT [facility] Name Value Range Interpretation Description Data Sup porting Code Source(s) Document(s ) Lactate 0.9 0.4-2.0 [facility] - [facility] [Moles/volu MMOL/L [facility]] in Hospital Serum or Plasma ID Date Data Source [id number] 11/12/2018 07:56:58 AM EDT [facility] Name Value Range Interpretation Description Data Sup porting Code Source(s) Document(s ) Leukocytes 11.7 4.8-10.6 Above high normal [facility] - [#/volume] in K/uL [facility] Blood by [facility] Erythrocytes 4.61 4.70-6.0 Below low normal [facility] - [#/volume] in M/uL 0 [facility] Blood by [facility] Hemoglobin 14.9 14.0-18. [facility] - [Mass/volume] in g/dL 0 [facility] Blood [facility] Hematocrit 43.4 % 42.0-52. [facility] - [Volume 0 [facility] Fraction] of [facility] Blood by Hospital Automated count Erythrocyte mean 94.1 FL 81.0-94. Above high normal [facility] - corpuscular 0 [facility] volume [Entitic Zoroastrianism volume] by Hospital Automated count Erythrocyte mean 32.3 PG 27.0-35. [facility] - corpuscular 0 [facility] hemoglobin [facility] [Entitic mass] Hospital by Automated count Erythrocyte mean 34.3 30.7-37. [facility] - corpuscular g/dL 3 [facility] hemoglobin [facility] concentration Hospital [Mass/volume] by Automated count Erythrocyte 13.8 % 11.5-14. [facility] - distribution 0 [facility] width [Ratio] by [facility] Automated count Hospital Platelets 238 K/uL 130-400 [facility] - [#/volume] in [facility] Blood by [facility]rianism Automated count Hospital Platelet mean 9.7 FL 9.2-11.8 [facility] - volume [Entitic Good volume] in [facility] by Automated Hospital count Segmented 79 % 48.0-72. Above high normal [facility] - neutrophils/100 [address] [facility] [address] [facility] Lymphocytes/100 13 % 18.0-40. Below low normal [facility] - leukocytes in 0 [facility] Monocytes/100 8 % 2.0-12.0 [facility] - leukocytes in [facility] Eosinophils/100 0 % 0.0-7.0 [facility] - leukocytes in [facility] Basophils/100 0 % 0.0-3.0 [facility] - leukocytes in [facility] Segmented 9.2 K/UL 1.5-6.6 Above high normal [facility] - neutrophils Good [#/volume] in [facility] Lymphocytes 1.6 K/UL 1.5-3.5 [facility] - [#/volume] in [facility] Monocytes 0.9 K/UL 0.0-1.0 [facility] - [#/volume] in [facility] Eosinophils 0.0 K/UL 0.0-0.7 [facility] - [#/volume] in [facility] Basophils 0.0 K/UL 0.0-0.1 [facility] - [#/volume] in [facility] Differential [facility] - cell count Good method [facility] Immature 1 % 0.0-2.0 [facility] - granulocytes/100 Good leukocytes in [facility]ism Blood by Hospital Automated count ID Date Data Source [id number] 11/11/2018 11:23:49 PM EDT [facility] Patient continues to thrash head and rem ove nasal cannula. Pulse ox reading<90%. Patient placed on bipap with assistance from nursing staff. Continuouspulse oximetry in place, side rails padded for protecti on and mitten restraintsremain intact. Will continue to monitor closely. Name Value Range Interpretation Code Description Data Harriett rce(s) Supporting Document(s ) ID Date Data Source [id number] 11/11/2018 10:04:37 PM EDT [facility] Assisted Michell Zuniga NP with NG Tube i nsertion. Patient very agitated hittinghis face. Ativan 0.5 ordered and given IV. W ill reattempt once patient iscalmer. Name Value Range Interpretation Code Description Data [facility] rce(s) Supporting Document(s ) ID Date Data Source [id number] 11/11/2018 07:20:27 PM EDT [facility] Problem: Dysphagia (Adult)Goal: *Acute G oals [...] rimary Diagnosis: COPD (chronic obstructive pulmonary disease) ([facility]) [J44.9]Acute re spiratory distress [R06.03]COPD exacerbation ([facility]) [J44.1]Pneumonia [J18.9]Precaution s: aspirationCurrent Diet (Recommendation): Continue NPO statusDiet: alternate means nutrition and hydrationASSESSMENT :Based on the objective data described below, the patient presents with severedysphagia. 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 No pertinent surgical history. Diet prior to admission: unknownPrior Level of Function/Home Situation: unknownHome SituationHome Environment: [facility] facilityOne/Two Story Residence: Other ( Comment)Living Alone: NoSupport Systems: [facility] facilityPatient Expects to be Discharged to:: UnknownCurrent DME Used/Available at Home: WheelchairCognit britni and Communication Status:Neurologic State: ConfusedOrientation Level: Disori ented O8Flomqbvcu: Unable to assess (comment)Perception: Tactile, VisualPers everation: Tactile cues provided, Verbal cues provided, Visual cues providedSafety/[place] gement: Lack of insight into deficitsOral Assessment:Oral AssessmentLabial: Decrea sed seal;Decreased rate;Impaired coordinationDentition: Limited;PoorOral Hygiene: poorLingual: Decreased rate;Decreased strength;IncoordinatedVel um: Unable to visualizeMandible: RestrictedGag Reflex: ReducedP.O. Trials :Patient Position: upright in bedVocal quality prior to P.O.: (not demonstrated )Consistency Presented: PureeHow Presented: BIN PILER-fed/presentedHow Much: 2(ounces)Bolu s Acceptance: ImpairedBolus Formation/Control: ImpairedType [...] Trials 2Consistency Presented: Honey thick liquidHow Presented: BIN PILER-fed/presentedCo nsistency Amount: 2(teaspoons)Bolus Acceptance: ImpairedBolus Formation/Cont rol: ImpairedType of Impairment: Delayed;SpillagePropulsion: Discoordinat ionOral Residue: NoneInitiation of Swallow: Severely delayedAspiration Signs/Symptom s: Decrease in O2 saturations;Facial rednessEffective Modifications: NoneCues for Modifications: MaximalP.O. Trial 3:-PO Trials 3Consistency Presented: Honey thi ck liquidHow Presented: BIN PILER-fed/presentedHow Much: 2(teaspoons)Bolus Acceptance: Impa iredBolus Formation/Control: ImpairedType of Impairment: DelayedPropulsion: Delayed;D iscoordinationOral Residue: NoneInitiation of Swallow: Severely delayedAspiration Sign s/Symptoms: Decrease in O2 saturations;Delayed cough/throatclear;Fa cial rednessEffective Modifications: NoneCues for Modifications: MaximalP.O. Trial 4:- PO Trials 4Consistency Presented: Mechanical softHow Presented: BIN PILER-fed/presentedCons istency Amount: 2(ounces)Bolus Acceptance: ImpairedBolus Formation/Control: Impaire [...] Supporting Document(s ) ID Date Data Source [id number] 11/11/2018 06:18:30 PM EDT [facility] ID Progress Note11/11/2018Subjective:Siri ent with MR,schizophrenia,non verbal.Unable [...] no.4 w ith vit K 10 mL, mg, folic acid [...] Supporting Document(s ) ID Date Data Source [id number] 11/11/2018 12:14:43 PM EDT [facility] TC with Only liaison pt is long t erm at Only and can return atdischarge. Name Value Range Interpretation Code Description Data Harriett rce(s) Supporting Document(s ) ID Date Data Source [id number] 11/11/2018 07:18:07 AM EDT [facility] Bedside and Verbal shift change report given to Bernarda PITTS (oncoming nurse) Mitul Covarrubias RN (offgoing nurse). Re port included the following informationSBAR, Kardex, MAR and Recent Results. Name Value Range Interpretation Code Description Data Harriett rce(s) Supporting Document(s ) ID Date Data Source [id number] 11/11/2018 08:00:19 AM EDT [facility] Name Value Range Interpretation Description Data Sup porting Code Source(s) Document(s ) Sodium 141 136-145 [facility] - [Moles/volume] in mmol/L [facility] Serum or Plasma Hospital Potassium 4.0 3.5-5.1 [facility] - [Moles/volume] in mmol/L [facility] Serum or Plasma Hospital Chloride 106 98-107 [facility] - [Moles/volume] in mmol/L [facility] Serum or Plasma Hospital Carbon dioxide, 28 21-32 [facility] - total mmol/L Community [Moles/volume] in Hospital Serum or Plasma Anion gap in Serum 11 10-20 [facility] - or Plasma mmol/L [facility] Glucose 100 74-106 [facility] - [Mass/volume] in mg/dL [facility] Serum or Plasma Hospital Urea nitrogen 15 7-18 [facility] - [Mass/volume] in mg/dL [facility] Serum or Plasma Hospital Creatinine 0.60 0.70-1. Below low normal [facility] - [Mass/volume] in mg/dL 30 [facility] Serum or Plasma Hospital Glomerular >60 [facility] [...] [facility] Bilirubin.total 0.5 0.2-1.0 [facility] - [Mass/volume] in mg/dL [facility] Serum or Plasma Hospital Alanine 23 U/L [...] [facility] Serum or Plasma [facility] Albumin 3.0 3.5-4.7 Below low normal [facility] - [Mass/volume] in g/dL [facility] Serum or Plasma by Hospital Bromocresol purple (BCP) dye binding method Globulin 3.5 1.7-4.7 [facility] - [Mass/volume] in g/dL [facility] Serum by Hospital calculation Albumin/Globulin 0.9 0.7-2.8 [facility] - [Mass Ratio] in [facility] Serum or Plasma Hospital ID Date Data Source [id number] 11/11/2018 08:00:19 AM EDT [facility] Name Value Range Interpretation Description Data Sup porting Code Source(s) Document(s ) Sodium 141 136-145 [facility] - [Moles/volume] in mmol/L [facility] Serum or [facility] Potassium 4.0 3.5-5.1 [facility] - [Moles/volume] in mmol/L [facility] or [facility] Chloride 106 98-107 [facility] - [Moles/volume] in mmol/L [facility] Serum or Plasma [facility] Carbon dioxide, 28 21-32 [facility] - total mmol/L [facility] [Moles/volume] in [facility] Serum or Plasma Hospital Anion gap in Serum 11 10-20 [facility] - or Plasma mmol/L [facility] Glucose 100 74-106 [facility] - [Mass/volume] in mg/dL [facility] Serum or Plasma [facility] Urea nitrogen 15 7-18 [facility] - [Mass/volume] in mg/dL [facility] Serum or Plasma [facility] Creatinine 0.60 0.70-1. Below low normal [facility] - [Mass/volume] in mg/dL 30 [facility] Serum or Plasma [facility] Glomerular >60 [facility] - filtration Good rate/1.73 sq M [facility] predicted among Hospital blacks [Volume Rate/Area] in Serum or Plasma by Creatinine-based formula (MDRD) Glomerular >60 [facility] - filtration Good rate/1.73 sq M [facility] predicted among Hospital non-blacks [Volume Rate/Area] in Serum or Plasma by Creatinine-based formula (MDRD) Calcium 9.0 8.5-10. [facility] - [Mass/volume] in mg/dL 1 [facility] Serum or Plasma [facility] Bilirubin.total 0.5 0.2-1.0 [facility] - [Mass/volume] in mg/dL [facility] Serum or Plasma [facility] Alanine 23 U/L 13-61 [facility] - aminotransferase Good [Enzymatic [facility]rianism activity/volume] in Hospital Serum or Plasma Aspartate 29 U/L 15-37 [facility] - aminotransferase Good [Enzymatic [facility] activity/volume] in Hospital Serum or Plasma by With P-5'-P Alkaline 48 U/L 45-117 [facility] - phosphatase Good [Enzymatic Zoroastrianism activity/volume] in Hospital Serum or Plasma Protein 6.5 6.4-8.2 [facility] - [Mass/volume] in g/dL [facility] Serum or Plasma [facility] Albumin 3.0 3.5-4.7 Below low normal [facility] - [Mass/volume] in g/dL Good Serum or Plasma by Zoroastrianism Bromocresol [facility] (BCP) dye binding method Globulin 3.5 1.7-4.7 [facility] - [Mass/volume] in g/dL Good Serum by [facility] Albumin/Globulin 0.9 0.7-2.8 [facility] - [Mass Ratio] in Good Serum or Plasma [facility] ID Date Data Source [id number] 11/10/2018 09:59:24 PM EDT [facility] Problem: Pressure Injury - Risk ofGoal: [...] Supporting Document(s ) ID Date Data Source [id number] 11/10/2018 09:58:53 PM EDT [facility] Problem: Pressure Injury - Risk ofGoal: [...] Supporting Document(s ) ID Date Data Source [id number] 11/10/2018 09:56:55 PM EDT [facility] Progress NoteMIDSTATE [facility].Krystian Monae MD., F.C.C.P.Stella Hamilton MD., F.C.C.P. 9W 1 [facility] [address] [place] [address] [phone]: Evelio Carlin Sex: male DOA: 11/07/2018Da te of : 1950 Age: 68 y.o. LOS: LOS: 2 daysSubjective:Mr. Gayla beltran is a 68 y.o. year old male who is being seen for SEVER COPD M,ASP. PNEUMONIAOb jective:Vital Signs:Patient Vitals for the past 24 hrs: BP Temp Pulse Resp IaL237/2 01/01 2102 149/88 - - - -11/10/18 [...] Procedure Component Value Units Date/Time CULTURE, BLOOD [[id number]] Col lected: 11/07/182009 Order Status: Completed Specimen: Blood Updated: 621 Special Requests: NO SPECIAL REQUESTS Culture result: NO GROWTH 3 DA YS CULTURE, BLOOD [[id number]] Collected: 11/07/181999 Order Status: Completed S pecimen: Blood Updated: 11/10/18621 Special Requests: NO SPECIAL REQUESTS C ulture result: NO GROWTH 3 DAYS STREP PNEUMO AG, URINE [[id number]] Collected: 0700 Order Status: Completed Specimen: Other [...] MEMBRANE ASSAY LEGIONELLA PNEUMOPHILA AG , URINE [[id number]] Collected: 11/08/18 1145 Order Status: Completed Specimen: [...] test. Method IMMUNOCHROMATOGRAPHIC MEMBRANE ASSAY CULTURE, URINE [[id number]] Order S tatus: Sent Specimen: Urine from [...] adult no.4 with vit K 10 mL, [id number] mg, folic acid 1 mg infusion IntraVENous [...] RTActive Problems: COPD (chronic obstructive pulmonary disease) ([facility]) (11/08/2018) Ac [place] respiratory distress (11/08/2018) Pneumonia (11/08/2018) COPD exacerbation ([facility]) (11/08/2018)Assessment:Problems: COPD (chronic obstructive pulmonary disease) ([facility]) (11/08/2018) Acute respiratory distress (11/08/2018) Pneumonia ( 019) COPD exacerbation ([facility]) (11/08/2018) Acute resp failure combined, pneumonia R LL acute copd exacerbation pe ruled out. BILATERAL BASAL ATELECTASESPLAN,Monito ring,Iv CEFTRIAXONE AND AZITHROMYCINIv steroidsbipap prn and at night.NebD/w dayanara tong and nursing staff.Krystian Monae MD F.C.C.P.November 10, 20189:51 PM Name Value Range Interpretation Code Description Data Harriett rce(s) Supporting Document(s ) ID Date Data Source [id number] 11/10/2018 07:27:55 PM EDT [facility] Bedside and Verbal shift change report g ankit De Guzman RN (oncoming nurse) byAde Salazar RN (offgoing nurse). Report includ ed the following information SBAR,Kardex, MAR, and Recent Results. Name Value Range Interpretation Code Description Data [facility] rce(s) Supporting Document(s ) ID Date Data Source [id number] 11/10/2018 06:52:12 PM EDT [facility] Problem: Pressure Injury - Risk ofGoal: [...] Supporting Document(s ) ID Date Data Source [id number] 11/10/2018 06:00:35 PM EDT [facility] Problem: Dysphagia (Adult)Goal: *Speech Goal: (INSERT TEXT)Note:SPEECH LANGUAGE PATHOLOGY BEDSIDE SWALLOW EVALUATIONPati ent: Evelio Carlin (68 y.o. male)Date: 11/10/2018Primary Diagnosis: COPD (chroni c obstructive pulmonary disease) ([facility]) [J44.9]Acute respiratory distress [R06.0 3]COPD exacerbation ([facility]) [J44.1]Pneumonia [J18.9]Precautions: AspirationCurrent Di et (Recommendation): [...] Psychiatric disorder Pulmonary emboli (HCC) Schizoph mandy ([facility])History reviewed. No pertinent surgical history.Diet prior to admission : UnknownPrior Level of Function/Home Situation:Home SituationHome Environment : [facility] facilityOne/Two Story Residence: Other (Comment)Living Alone: NoSupport Systems: [facility] facilityPatient Expects to be Discharged to:: UnknownCurrent DME Used/Available at Home: WheelchairCognitive and Communicat ion Status:Neurologic State: Alert, ConfusedOrientation Level: Unable to lani balizeCognition: Decreased attention/concentration, Impaired decisi on making, Nocommand followingPerception: Cues to attend left visual fieldPersever ation: Tactile cues provided, Verbal cues provided, Visual cues providedSafety/[place] gement: Decreased awareness of environment, Decreased awareness ofneed for assistanc e, Decreased awareness of need for safetyOral Assessment:Oral AssessmentLabial: Decrea sed rateDentition: IntactOral Hygiene: fairLingual: Decreased rateVelum: Unable to visualizeMandible: RestrictedGag Reflex: ReducedP.O. Trials:Patient Position: upr ight in bedVocal quality prior to P.O.: Other (comment)Consistency Presented: Honey th ick liquidHow Presented: BIN PILER-fed/presented;SpoonHow Much: 3(spoon ful)Bolus Acceptance: No impairmentBolus Formation/Control: [...] 3:-PO Trials 3Consis tency Presented: PureeHow Presented: BIN PILER-fed/presented;SpoonHow Much: 3(spoon fuls)Bolus Acceptance: No impairmentBolus Formation/Control: [...] Supporting Document(s ) ID Date Data Source [id number] 11/10/2018 03:55:31 PM EDT [facility] RN called to report Lactic Acid of 2.4, this is down from 3.8Advised that this is satisfactorySuDAYANARA Ace Name Value Range Interpretation Code Description Data [facility] rce(s) Supporting Document(s ) ID Date Data Source [id number] 11/10/2018 03:23:12 PM EDT [facility] RECOMMENDATIONS:Regular diet with consis tencies per SLPIf unable to swallow on repeat evaluation, consider ENNUTRITION ASSESSM ENT MST ScreenSubjective: Pt non-verbal, spoke to pt's family at bedside. 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, appetite has beendecrea sed for [...] score 8Intervention:Suggest Regular diet with consistencies per BIN PILER; will pr ovide Magic Cup TID (290kcal, 9 gm pro each); use reviewed with familyIf unable to swa llow on repeat evaluation, consider ENGoals:Consumption of >50% meals/snack s/supplements daily within 3-7 daysMonitoring and EvaluationSLP notes, PO intake vs EN Skin integrityDischarge Planning:Pending Clinical Course [x] No cultural, religi ous, or ethnic dietary needs identified [] Cultural, yarsanism and ethnic food pref erences identified and addressed [] Participated in care plan, discharge jocelyn nning/Interdisciplinary roundsAlexa R Sunny RD Name Value Range Interpretation Code Description Data Harriett rce(s) Supporting Document(s ) ID Date Data Source [id number] 11/10/2018 02:57:57 PM EDT [facility] ID Progress Note11/10/2018Subjective:Siri ent with MR,schizophrenia,non verbal.Unable [...] MG-0.5 MG/3 ML 3 mL Nebulization Q4H PA N methylPREDNISolone (PF) (SOLU-MEDROL) injection 40 mg [...] Supporting Document(s ) ID Date Data Source [id number] 11/10/2018 12:49:56 PM EDT [facility] Clinical IndicatorsA/W Pneumonia with do cumented history of intellectual disability , dysphagia ,residing in Only unabl e to provide any history or verbal communication,requiring restraints as ne eded, assistance with ambulation/ADL care , bedalarm, and bedside swallow evaluation Please clarify type of intellectual disability: Moderate Severe Profound Clinically unable to determine Unknown Name Value Range Interpretation Code Description Data [facility](s) Supporting Document(s ) ID Date Data Source [id number] 11/10/2018 07:27:29 AM EDT [facility] Bedside and Verbal shift change report carol GROSS RN (oncoming nurse) bySincy Chad, RN(offgoing nurse). Report given with SBAR, Kardex, Intake/Output, MAR and RecentResults. Name Value Range Interpretation Code Description Data Harriett rce(s) Supporting Document(s ) ID Date Data Source [id number] 11/10/2018 06:43:00 AM EDT [facility] Name Value Range Interpretation Description Data Sup porting Code Source(s) Document(s ) Leukocytes 14.4 4.8-10.6 Above high normal [facility] - [#/volume] in K/uL Community Blood by Hospital Automated count Erythrocytes 4.19 4.70-6.0 Below low normal [facility] - [#/volume] in M/uL 0 [facility] Blood by Hospital Automated count Hemoglobin 13.5 14.0-18. Below low normal [facility] - [Mass/volume] in g/dL 0 [facility] Blood Hospital Hematocrit 40.1 % 42.0-52. Below low normal [facility] - [Volume 0 Community Fraction] of Hospital Blood by Automated count Erythrocyte mean 95.7 FL 81.0-94. Above high normal [facility] - corpuscular 0 Community volume [Entitic Hospital volume] by Automated count Erythrocyte mean 32.2 PG 27.0-35. [facility] - corpuscular 0 [facility] hemoglobin Hospital [Entitic mass] by Automated count Erythrocyte mean 33.7 30.7-37. [facility] - corpuscular g/dL 3 [facility] hemoglobin Hospital concentration [Mass/volume] by Automated count Erythrocyte 13.9 % 11.5-14. [facility] - distribution 0 Community width [Ratio] by Hospital Automated count Platelets 227 K/uL 130-400 [facility] - [#/volume] in [facility] Blood by Hospital Automated count Platelet mean 9.8 FL 9.2-11.8 [facility] - volume [Entitic Community volume] in Blood Hospital by Automated count Segmented 89 % 48.0-72. Above high normal [facility] - neutrophils/100 0 Community leukocytes in Hospital Blood Lymphocytes/100 8 % 18.0-40. Below low normal [facility] - leukocytes in 0 [facility] Blood Hospital Monocytes/100 3 % 2.0-12.0 [facility] - leukocytes in [facility] Blood Hospital Eosinophils/100 0 % 0.0-7.0 [facility] - leukocytes in [facility] Blood Hospital Basophils/100 0 % 0.0-3.0 [facility] - leukocytes in [facility] Blood Hospital Segmented 12.8 1.5-6.6 Above high normal [facility] - neutrophils K/UL Community [#/volume] in Hospital Blood Lymphocytes 1.2 K/UL 1.5-3.5 Below low normal [facility] - [#/volume] in [facility] Blood Hospital Monocytes 0.4 K/UL 0.0-1.0 [facility] - [#/volume] in [facility] Blood Hospital Eosinophils 0.0 K/UL 0.0-0.7 [facility] - [#/volume] in [facility] Blood Hospital Basophils 0.0 K/UL 0.0-0.1 [facility] - [#/volume] in [facility] Hospital Differential [facility] - cell count [facility] Immature 0 % 0.0-2.0 [facility] - granulocytes/100 Community leukocytes in Hospital Blood by Automated count ID Date Data Source [id number] 11/10/2018 06:33:30 AM EDT [facility] - [facility] Name Value Range Interpretation Description Data Sup porting Code Source(s) Document(s ) Sodium 141 136-145 [facility] - [Moles/volume] in mmol/L [facility] Serum or Plasma Hospital Potassium 4.0 3.5-5.1 [facility] - [Moles/volume] in mmol/L [facility] Serum or Plasma Hospital Chloride 103 98-107 [facility] - [Moles/volume] in mmol/L [facility] Serum or Plasma Hospital Carbon dioxide, 32 21-32 [facility] - total mmol/L [facility] [Moles/volume] in Hospital Serum or Plasma Anion gap in Serum 9 10-20 Below low normal [facility] - or Plasma mmol/L [facility] Glucose 102 74-106 [facility] - [Mass/volume] in mg/dL [facility] Serum or Plasma Hospital Urea nitrogen 17 7-18 [facility] - [Mass/volume] in mg/dL [facility] Serum or Plasma Hospital Creatinine 0.55 0.70-1. Below low normal [facility] - [Mass/volume] in mg/dL 30 [facility] Serum or Plasma Hospital Glomerular >60 [facility] [...] [facility] Serum or Plasma Hospital Bilirubin.total 0.3 0.2-1.0 [facility] - [Mass/volume] in mg/dL [facility] Serum or Plasma Hospital Alanine 17 U/L 13-61 [facility] - aminotransferase Community [Enzymatic Hospital activity/volume] in Serum or Plasma Aspartate 25 U/L 15-37 [facility] - aminotransferase Community [Enzymatic Hospital activity/volume] in Serum or Plasma by With P-5'-P Alkaline 46 U/L 45-117 [facility] - phosphatase Community [Enzymatic Hospital activity/volume] in Serum or Plasma Protein 6.3 6.4-8.2 Below low normal [facility] - [Mass/volume] in g/dL [facility] Serum or Plasma [facility] Albumin 2.9 3.5-4.7 Below low normal [facility] - [Mass/volume] in g/dL [facility] Serum or Plasma by Hospital Bromocresol purple (BCP) dye binding method Globulin 3.4 1.7-4.7 [facility] - [Mass/volume] in g/dL [facility] Serum by [facility] calculation Albumin/Globulin 0.9 0.7-2.8 [facility] - [Mass Ratio] in [facility] Serum or Plasma Hospital ID Date Data Source [id number] 11/10/2018 06:43:00 AM EDT [facility] Name Value Range Interpretation Description Data Sup porting Code Source(s) Document(s ) Leukocytes 14.4 4.8-10.6 Above high normal [facility] - [#/volume] in K/uL Good Blood by Zoroastrianism Automated count [facility] Erythrocytes 4.19 4.70-6.0 Below low normal [facility] - [#/volume] in M/uL 0 Good Blood by Zoroastrianism Automated count [facility] Hemoglobin 13.5 14.0-18. Below low normal [facility] - [Mass/volume] in g/dL 0 Good Blood [facility] Hematocrit 40.1 % 42.0-52. Below low normal [facility] - [Volume 0 Good Fraction] of Zoroastrianism Blood by [facility] Automated count Erythrocyte mean 95.7 FL 81.0-94. Above high normal [facility] - corpuscular 0 Good volume [Entitic Zoroastrianism volume] by Hospital Automated count Erythrocyte mean 32.2 PG 27.0-35. [facility] - corpuscular 0 [facility] hemoglobin Zoroastrianism [Entitic mass] Hospital by Automated count Erythrocyte mean 33.7 30.7-37. [facility] - corpuscular g/dL 3 [facility] hemoglobin Zoroastrianism concentration Hospital [Mass/volume] by Automated count Erythrocyte 13.9 % 11.5-14. [facility] - distribution 0 Good width [Ratio] by Zoroastrianism Automated count Hospital Platelets 227 K/uL 130-400 [facility] - [#/volume] in [facility] Blood by Zoroastrianism Automated count Hospital Platelet mean 9.8 FL 9.2-11.8 [facility] - volume [Entitic Good volume] in [facility] by Automated Hospital count Segmented 89 % 48.0-72. Above high normal [facility] - neutrophils/100 0 [facility] leukocytes in [facility] Lymphocytes/100 8 % 18.0-40. Below low normal [facility] - leukocytes in 0 [facility] Monocytes/100 3 % 2.0-12.0 [facility] - leukocytes in [facility] Eosinophils/100 0 % 0.0-7.0 [facility] - leukocytes in [facility] Basophils/100 0 % 0.0-3.0 [facility] - leukocytes in [facility] Segmented 12.8 1.5-6.6 Above high normal [facility] - neutrophils K/UL Good [#/volume] in [facility] Lymphocytes 1.2 K/UL 1.5-3.5 Below low normal [facility] - [#/volume] in [facility] Monocytes 0.4 K/UL 0.0-1.0 [facility] - [#/volume] in [facility] Eosinophils 0.0 K/UL 0.0-0.7 [facility] - [#/volume] in [facility] Basophils 0.0 K/UL 0.0-0.1 [facility] - [#/volume] in [facility] Differential [facility] - cell count [facility] method [facility] Immature 0 % 0.0-2.0 [facility] - granulocytes/100 Good leukocytes in Zoroastrianism Blood by Hospital Automated count ID Date Data Source [id number] 11/10/2018 06:33:30 AM EDT [facility] - [facility] Name Value Range Interpretation Description Data Sup porting Code Source(s) Document(s ) Sodium 141 136-145 [facility] - [Moles/volume] in mmol/L [facility] Serum or Plasma [facility] Potassium 4.0 3.5-5.1 [facility] - [Moles/volume] in mmol/L [facility] Serum or Plasma [facility] Chloride 103 98-107 [facility] - [Moles/volume] in mmol/L [facility] Serum or [facility] Carbon dioxide, 32 21-32 [facility] - total mmol/L Good [Moles/volume] in Zoroastrianism Serum or Plasma Hospital Anion gap in Serum 9 10-20 Below low normal [facility] - or Plasma mmol/L [facility] Glucose 102 74-106 [facility] - [Mass/volume] in mg/dL [facility] Serum or [facility] Urea nitrogen 17 7-18 [facility] - [Mass/volume] in mg/dL [facility] Serum or [facility] Creatinine 0.55 0.70-1. Below low normal [facility] - [Mass/volume] in mg/dL 30 [facility] Serum or [facility] Glomerular >60 [facility] - filtration Good rate/1.73 sq M Zoroastrianism predicted among Hospital blacks [Volume Rate/Area] in Serum or Plasma by Creatinine-based formula (MDRD) Glomerular >60 [facility] - filtration Good rate/1.73 sq M Zoroastrianism predicted among Hospital non-blacks [Volume Rate/Area] in Serum or Plasma by Creatinine-based formula (MDRD) Calcium 9.3 8.5-10. [facility] - [Mass/volume] in mg/dL 1 [facility] Serum or [facility] Bilirubin.total 0.3 0.2-1.0 [facility] - [Mass/volume] in mg/dL [facility] Serum or [facility] Alanine 17 U/L 13-61 [facility] - aminotransferase Good [Enzymatic Zoroastrianism activity/volume] in Hospital Serum or Plasma Aspartate 25 U/L 15-37 [facility] - aminotransferase Good [Enzymatic Zoroastrianism activity/volume] in Hospital Serum or Plasma by With P-5'-P Alkaline 46 U/L 45-117 [facility] - phosphatase Good [Enzymatic Zoroastrianism activity/volume] in Hospital Serum or Plasma Protein 6.3 6.4-8.2 Below low normal [facility] - [Mass/volume] in g/dL Good Serum or Plasma [facility] Albumin 2.9 3.5-4.7 Below low normal [facility] - [Mass/volume] in g/dL Good Serum or Plasma by Zoroastrianism Bromocresol [facility] (BCP) dye binding method Globulin 3.4 1.7-4.7 [facility] - [Mass/volume] in g/dL Good Serum by [facility] Albumin/Globulin 0.9 0.7-2.8 [facility] - [Mass Ratio] in Good Serum or Plasma [facility] ID Date Data Source [id number] 11/10/2018 02:11:58 AM EDT [facility] - [facility] Problem: Pressure Injury - Risk ofGoal: [...] Supporting Document(s ) ID Date Data Source [id number] 11/10/2018 01:55:16 AM EDT [facility] Problem: Pressure Injury - Risk ofGoal: [...] Name Value Range Interpretation Code Description Data [facility] rce(s) Supporting Document(s ) ID Date Data Source [id number] 11/09/2018 09:47:48 PM EDT [facility] notified of the NPO status and lamictal po med.as per pharmacy noalternative route for lamictal.so MD uribe ecommended to give med with small amountof apple sauce and to monitor. Name Value Range Interpretation Code Description [facility](s ) ID Date Data Source [id number] 11/09/2018 08:03:32 PM EDT [facility] Bedside and Verbal shift change report carol pritchett rn (oncoming nurse) byAditi Arriaga RN (offgoing nurse). Report inclu ded the following informationSBAR, Kardex, ED Summary, Intake/Output and MAR. Name Value Range Interpretation Code Description Data [facility] Supporting Document(s ) ID Date Data Source [id number] 11/09/2018 03:09:00 PM EDT [facility] ID Progress Note11/09/2018Subjective:Pt s eems somewhat [...] 24 hrs: BP Temp Pulse Resp SpO2 [id number]/09 0850 110/63 97.2 F (36.2 C) 62 [...] Supporting Document(s ) ID Date Data Source [id number] 11/09/2018 01:54:56 PM EDT [facility] - [facility] PULMONARY/ CCM- Consult NotePatient: Ivelisse nuel [...] ol use: No Drug use: NoReview of Clique Intelligenceinent items are noted in the History of [...] mg, 50 mg, Oral, BID, Mili [place] DO,50 mg at 11/09/18 1000 ALP RAZolam [...] 2.5 MG-0.5 MG/3 ML, 3 mL, Nebulization, [id number], Gi ll, MD Stella, 3 mL at 11/09/18 1256DataVisit VitalsBP 112/72 (BP 1 Loca tion: Left arm, BP Patient Position: At rest;Head of bedelevated (Comment degree s))Pulse 80Temp 97.8 F (36.6 C)Resp 20Ht 5' 2" (1.575 m)Wt 59.1 kg (130 lb 6.4 oz)Sp O2 93%BMI 23.85 kg/m Intake and Output:Date 11/08/18 0700 - 11/09/18 0659 11/09/18 0 700 - 11/10/18 0659Shift 1208-9299 9759-2822 24 Hour Total 6423-3295 7593-9155 24 Tammy r TotalINTAKEShift Total(mL/kg)OUTPUTUrine(mL/kg/hr) 600(0 .8) [...] Munson 2018The billing code submitted in [facility] this evaluation also includes thetime to review patient's prior records, communic ate with the physician team,obtain corroborating data, and discuss the risk and benefits of the proposedmanagement plan with the patient and their family >30 mi nutes. Name Value Range Interpretation Code Description Data Harritet rce(s) Supporting Document(s ) ID Date Data Source [id number] 11/09/2018 11:27:33 AM EDT [facility] Problem: Dysphagia (Adult)Goal: *Acute G oals [...] Level of Functio n/Home Situation:Home SituationHome Environment: [facility] facilityOne /Two Story Residence: Other (Comment)Living Alone: [...] at baseline )Consistency Presented: (Spoon-thick liquid)How Presented: BIN PILER-fed/presented; SpoonHow Much: 3(spoonfuls)Bolus Acceptance: No impairmentBolus Formation/Control: [...] Supporting Document(s ) ID Date Data Source [id number] 11/09/2018 07:02:32 AM EDT [facility] Bedside and Verbal shift change report g iven to Aditi Arriaga RN (oncomingnurse) by Marni Regalado RN (offgoing nurse). Re port included the followinginformation SBAR and Kardex. Name Value Range Interpretation Code Description Data Harriett rce(s) Supporting Document(s ) ID Date Data Source [id number] 11/09/2018 10:48:09 AM EDT [facility] Name Value Range Interpretation Description Data Sup [...] for gram stainand bacterial culture Service comment [facility] ID Date Data Source [id number] 11/09/2018 10:48:09 AM EDT [facility] Name Value Range Interpretation Description Data Sup porting Code Source(s) Document(s ) Streptococcus NEG [facility] Good pneumoniae Ag Zoroastrianism [Presence] in Hospital Urine Presumptive negative suggests nocurrent or recent pneumococcal infection.Infection due to S.pneumonia cannot beruled out si nce the antigen presentin the sample may be below the detectionlimit of the test. Th is test is notintended as a substitute for gram stainand bacterial culture Service comment [facility] - [facility] ID Date Data Source [id number] 11/09/2018 07:12:28 AM EDT [facility] - [facility] Name Value Range Interpretation Description Data [...] non- Americans (GFRNA), and normalized to 1.7 4v1xfgq surface area. The physician must decide which value applies tothe patient . The MDRD study equation should only be used inindividuals age 18 or older. It has no t been validated for thefollowing: women, patients with serious comorbid co nditions,or on certain medications, or persons with extremes of body size,muscl e mass, or nutritional status. Calcium [Mass/volume] in 9.4 mg/dL 8.5-10.1 [facility] Hospital Bilirubin.total 0.4 mg/dL 0.2-1.0 [facility] - Commun ity [Mass/volume] in Serum or Hosp ital Plasma Alanine aminotransferase 14 U/L 13-61 [facility] - [facility] [Enzymatic activity/volume] Ho spital in Serum or Plasma Aspartate aminotransferase 17 U/L 15-37 BSC HS - [facility] [Enzymatic activity/volume] Ho spital in Serum or Plasma by With P-5'-P Alkaline phosphatase 46 U/L 45-117 BSS [facility] ommunity [Enzymatic activity/volume] Ho spital in Serum or Plasma Protein [Mass/volume] in 6.6 g/dL 6.4-8.2 [facility] Serum or Plasma [facility] Albumin [Mass/volume] in 2.9 g/dL 3.5-4.7 Below low normal [facility] Serum or Plasma by [facility] Bromocresol purple (BCP) dye binding method Globulin [Mass/volume] in 3.7 g/dL 1.7-4.7 [facility] Serum by calculation Hospital Albumin/Globulin [Mass 0.8 0.7-2.8 [facility] Ratio] in Serum or Plasma Hosp ital ID Date Data Source [id number] 11/09/2018 07:12:28 AM EDT [facility] Name Value Range Interpretation Description Data Sup porting Code Source(s) Document(s ) Magnesium 2.1 mg/dL 1.6-2.6 [facility] - [Mass/volume] [facility] in Serum or Hospital Plasma ID Date Data Source [id number] 11/09/2018 06:54:35 AM EDT [facility] Name Value Range Interpretation Description Data Sup porting Code Source(s) Document(s ) Prothrombin 11.0 sec 9.4-11.1 [facility] - time (PT) [facility] INR in 1.1 0.8-1.2 [facility] - Platelet poor [facility] plasma by [facility] Coagulation assay ID Date Data Source [id number] 11/09/2018 06:52:04 AM EDT [facility] - Commu [...] 0 [facility] Blood [facility] Hematocrit 41.0 % 42.0-52. Below low normal [facility] - [Volume 0 Community Fraction] of Hospital Blood by Automated count Erythrocyte mean 96.2 FL 81.0-94. Above high normal [facility] - corpuscular 0 Community volume [Entitic Hospital volume] by Automated count Erythrocyte mean 32.9 PG 27.0-35. [facility] - corpuscular 0 [facility] [Entitic mass] by Automated count Erythrocyte mean 34.1 30.7-37. [facility] - corpuscular g/dL 3 [facility] hemoglobin Hospital concentration [Mass/volume] by Automated count Erythrocyte 13.6 % 11.5-14. [facility] - distribution 0 Community width [Ratio] by Hospital Automated count Platelets 204 K/uL 130-400 [facility] - [#/volume] in [facility] Blood by Hospital Automated count Platelet mean 9.9 FL 9.2-11.8 [facility] - volume [Entitic Community volume] in Blood Hospital by Automated count Segmented 90 % 48.0-72. Above high normal [facility] - neutrophils/100 0 Community leukocytes in Hospital Blood Lymphocytes/100 8 % 18.0-40. Below low normal [facility] - leukocytes in 0 [facility] Blood Hospital Monocytes/100 2 % 2.0-12.0 [facility] - leukocytes in [facility] Blood Hospital Eosinophils/100 0 % 0.0-7.0 [facility] - leukocytes in [facility] Blood Hospital Basophils/100 0 % 0.0-3.0 [facility] - leukocytes in [facility] Blood Hospital Segmented 15.1 1.5-6.6 Above high normal [facility] - neutrophils K/UL Community [#/volume] in Hospital Blood Lymphocytes 1.4 K/UL 1.5-3.5 Below low normal [facility] - [#/volume] in [facility] Blood Hospital Monocytes 0.4 K/UL 0.0-1.0 [facility] - [#/volume] in [facility] Blood Hospital Eosinophils 0.0 K/UL 0.0-0.7 [facility] - [#/volume] in [facility] Blood Hospital Basophils 0.0 K/UL 0.0-0.1 [facility] - [#/volume] in [facility] Blood Hospital Differential [facility] - cell count [facility] Blood [facility] Immature 0 % 0.0-2.0 [facility] - granulocytes/100 [facility] leukocytes in Hospital Blood by Automated count ID Date Data Source [id number] 11/09/2018 07:12:28 AM EDT [facility] - [facility] Name Value Range Interpretation Description Data Sup porting Code Source(s) Document(s ) Sodium 140 136-145 [facility] - Good [Moles/volume] mmol/L [facility] in Serum or Hospital Plasma Potassium 4.2 3.5-5.1 [facility] - Good [Moles/volume] mmol/L [facility] in Serum or Hospital Plasma Chloride 104 98-107 [facility] - Good [Moles/volume] mmol/L [facility] in Serum or Hospital Plasma Carbon 33 21-32 Above high normal [facility] - Good dioxide, total mmol/L [facility] [Moles/volume] Hospital in Serum or Plasma Anion gap in 8 mmol/L 10-20 Below low normal [facility] - Go od Serum or [facility] Plasma Hospital Glucose 117 74-106 Above high normal [facility] - Good [Mass/volume] mg/dL [facility] in Serum or Hospital Plasma Urea nitrogen 15 mg/dL 7-18 [facility] - Good [Mass/volume] [facility] in Serum or Hospital Plasma Creatinine 0.50 0.70-1.3 Below low normal [facility] - Good [Mass/volume] mg/dL 0 [facility] in Serum or Hospital Plasma Glomerular >60 [facility] - Good filtration [facility] rate/1.73 sq M Hospital predicted among blacks [Volume Rate/Area] in Serum or Plasma by Creatinine-bas ed formula (MDRD) Glomerular >60 [facility] - Good filtration [facility] rate/1.73 sq M Hospital predicted among non-blacks [Volume Rate/Area] in Serum or Plasma by Creatinine-bas ed formula (MDRD) (NOTE)Estimated GFR is calculated using the Modification of Diet in RenalDisease (MDRD) Study equation, reported for both Americans(GFRAA) and non- Americans (GFRNA), and normalized to 1.7 5t4pzon surface area. The physician must decide which [...] 8.5-10.1 [facility] - Good Serum or Plasma [facility] ital Bilirubin.total 0.4 mg/dL 0.2-1.0 [facility] - Good [Mass/volume] in Serum or [facility] Plasma Alanine aminotransferase 14 U/L 13-61 [facility] - Good [Enzymatic activity/volume] [facility] in Serum or Plasma Aspartate aminotransferase 17 U/L 15-37 BSC HS - Good [Enzymatic activity/volume] [facility] in Serum or Plasma by With P-5'-P Alkaline phosphatase 46 U/L 45-117 [facility] - G ood [Enzymatic activity/volume] [facility] in Serum or Plasma Protein [Mass/volume] in 6.6 g/dL 6.4-8.2 [facility] - Good Serum or Plasma [facility] ital Albumin [Mass/volume] in 2.9 g/dL 3.5-4.7 Below low normal [facility] - Good Serum or Plasma by [facility] ospital Bromocresol purple (BCP) dye binding method Globulin [Mass/volume] in 3.7 g/dL 1.7-4.7 BS[facility] S - Good Serum by calculation [facility] Albumin/Globulin [Mass 0.8 0.7-2.8 [facility] - Good Ratio] in Serum or Plasma [facility] ID Date Data Source [id number] 11/09/2018 07:12:28 AM EDT [facility] - [facility] Name Value Range Interpretation Description Data Sup porting Code Source(s) Document(s ) Magnesium 2.1 mg/dL 1.6-2.6 [facility] - Good [Mass/volume] [facility] in Serum or Hospital Plasma ID Date Data Source [id number] 11/09/2018 06:54:35 AM EDT [facility] Name Value Range Interpretation Description Data Sup porting Code Source(s) Document(s ) Prothrombin 11.0 sec 9.4-11.1 [facility] - Good time (PT) [facility] INR in 1.1 0.8-1.2 [facility] - Good Platelet poor [facility] plasma by [facility] Coagulation assay ID Date Data Source [id number] 11/09/2018 06:52:04 AM EDT [facility] - [facility] Name Value Range Interpretation Description Data Sup porting Code Source(s) Document(s ) Leukocytes 17.0 4.8-10.6 Above high normal [facility] - [#/volume] in K/uL Good Blood by [facility] Automated count [facility] Erythrocytes 4.26 4.70-6.0 Below low normal [facility] - [#/volume] in M/uL 0 Good Blood by [facility] Automated count [facility] Hemoglobin 14.0 14.0-18. [facility] - [Mass/volume] in g/dL 0 Good Blood [facility] Hematocrit 41.0 % 42.0-52. Below low normal [facility] - [Volume 0 Good Fraction] of [facility] Blood by Hospital Automated count Erythrocyte mean 96.2 FL 81.0-94. Above high normal [facility] - corpuscular 0 Good volume [Entitic [facility]ism volume] by Hospital Automated count Erythrocyte mean 32.9 PG 27.0-35. [facility] - corpuscular 0 Good hemoglobin [facility] [Entitic mass] Hospital by Automated count Erythrocyte mean 34.1 30.7-37. [facility] - corpuscular g/dL 3 Good hemoglobin [facility]oro[facility]rianism concentration [facility] [Mass/volume] by Automated count Erythrocyte 13.6 % 11.5-14. [facility] - distribution 0 Good width [Ratio] by [facility] Automated count [facility] Platelets 204 K/uL 130-400 [facility] - [#/volume] in Good Blood by [facility] Platelet mean 9.9 FL 9.2-11.8 [facility] - volume [Entitic Good volume] in Blood [facility] by Automated Hospital count Segmented 90 % 48.0-72. Above high normal [facility] - neutrophils/100 0 Good leukocytes in [facility] Lymphocytes/100 8 % 18.0-40. Below low normal [facility] - leukocytes in 0 [facility] Monocytes/100 2 % 2.0-12.0 [facility] - leukocytes in [facility] Eosinophils/100 0 % 0.0-7.0 [facility] - leukocytes in [facility] Basophils/100 0 % 0.0-3.0 [facility] - leukocytes in [facility] Segmented 15.1 1.5-6.6 Above high normal [facility] - neutrophils K/UL Good [#/volume] in [facility] Lymphocytes 1.4 K/UL 1.5-3.5 Below low normal [facility] - [#/volume] in [facility] Monocytes 0.4 K/UL 0.0-1.0 [facility] - [#/volume] in [facility] Eosinophils 0.0 K/UL 0.0-0.7 [facility] - [#/volume] in [facility] Basophils 0.0 K/UL 0.0-0.1 [facility] - [#/volume] in [facility] Differential [facility] - cell count [facility] Immature 0 % 0.0-2.0 [facility] - granulocytes/100 Good leukocytes in [facility] Hospital Automated count ID Date Data Source [id number] 11/09/2018 07:16:02 AM EDT [facility] - [facility] Name Value Range Interpretation Description Data Sup porting Code Source(s) Document(s ) Color of Urine YEL [facility] - [facility] Appearance of CLEAR [facility] - Urine [facility] Specific gravity 1.009 1.003-1. [facility] - of Urine by 030 [facility] of Urine by 8.0 4.6-8.0 [facility] - Test strip [facility] Protein NEG [facility] - [Mass/volume] in Good Urine by Test [facility] Hospital Glucose NEG [facility] - [Mass/volume] in Good Urine by [facility] Automated test Hospital strip Ketones NEG [facility] - [Presence] in Good Urine by [facility] Automated test Hospital strip Bilirubin.total NEG [facility] - [Presence] in Good Urine [facility] Hemoglobin NEG [facility] - [Presence] in Good Urine by Test [facility] Urobilinogen 0.2 0.2-1.0 [facility] - [Presence] in EU/dL Good Urine by [facility] Automated test Hospital strip Nitrite NEG [facility] - [Presence] in Good Urine by [facility] test Hospital strip Leukocyte NEG [facility] - esterase Good [Presence] in [facility] Urine by Hospital Automated test strip ID Date Data Source [id number] 11/09/2018 07:16:02 AM EDT [facility] - [facility] Name Value Range Interpretation Description Data Sup porting Code Source(s) Document(s ) Color of Urine YEL [facility] - [facility] Appearance of CLEAR [facility] - Urine [facility] Specific gravity 1.009 1.003-1. [facility] - of Urine by 030 [facility] Refractometry [facility] pH of Urine by 8.0 4.6-8.0 [facility] - Test strip [facility] Protein NEG [facility] - [Mass/volume] in Community Urine by Test Hospital strip Glucose NEG [facility] - [Mass/volume] in Community Urine by Hospital Automated test strip Ketones NEG [facility] - [Presence] in Community Urine by Hospital Automated test strip Bilirubin.total NEG [facility] - [Presence] in Community Urine [facility] Hemoglobin NEG [facility] - [Presence] in Community Urine by Test Hospital strip Urobilinogen 0.2 0.2-1.0 [facility] - [Presence] in EU/dL Community Urine by Hospital Automated test strip Nitrite NEG [facility] - [Presence] in Community Urine by Hospital Automated test strip Leukocyte NEG [facility] - esterase Community [Presence] in Hospital Urine by Automated test strip ID Date Data Source [id number] 11/09/2018 01:12:51 AM EDT [facility] - [facility] Problem: Pressure Injury - Risk ofGoal: [...] Supporting Document(s ) ID Date Data Source [id number] 11/08/2018 09:06:28 PM EDT [facility] Name Value Range Interpretation Description Data Sup porting Code Source(s) Document(s ) Lactate 2.4 0.4-2.0 Above upper panic [facility] - [Moles/volu MMOL/L limits [facility]] in Hospital Serum or Plasma CALLED TO AND READ BACK BYNANCY HARKINS 9:06PM OUSSEAU ID Date Data Source [id number] 11/08/2018 09:06:28 PM EDT [facility] Name Value Range Interpretation Description Data Sup porting Code Source(s) Document(s ) Lactate 2.4 0.4-2.0 Above upper panic [facility] Good [Moles/volu MMOL/L limits [facility]] in Hospital Serum or Plasma CALLED TO AND READ BACK BYANNCY HARKINS 9:06PM JROUSSEAU ID Date Data Source [id number] 11/08/2018 07:12:37 PM EDT [facility] Bedside shift change report given to Miguelito Rome RN (oncoming nurse) Janusz Rivera RN (offgoing nurse). Report inc luded the following information SBAR. Name Value Range Interpretation Code Description Data Harriett rce(s) Supporting Document(s ) ID Date Data Source [id number] 11/08/2018 04:47:49 PM EDT [facility] History provided by: Triage notes7:31 PM [...] e Gets together: Not on file Attends yarsanism service: Not on file Active m ember [...] QTC Calculation (Bezet) 493 ms Calculated P [place] 45 degrees Calculated R [place] 19 degrees Calculated T [place] 43 degrees Diagnosis S inus tachycardiaInferior infarct, [...] TO AND READ BACK BY Performed by [id number] ACID Collection Time: 11/08/18 3:40 AMResult Value Ref Range Lactic acid 4.1 (HH) 0.4 - 2.0 MMOL/LEK:15 PM Sinus Tachycardia at 111 BPM with Q wave at 2,3, and aVF, and withno acute ischemic changes. Interpret ed by Lisa Powell MD.7:15 PM cardiac technician reading shows sinus tachycardia at 111 BPM. [...] acerbation of chronic obstructive pulmonary disease (COPD) ([facility])J44.1 491.212. Commu nity acquired pneumonia of right lower lobe of lung ([facility]) J18.1 481Patient condition at time of [...] Supporting Document(s ) ID Date Data Source [id number] 11/08/2018 01:58:35 PM EDT [facility] PULMONARY/ CCM- Consult NotePatient: Ivelisse Carlin [...] CO2 73*PO2 77*HCO3 46*Cultures:No results found for: LongaccessLab ResultsComponent Valu e Date/Time Culture result: NO [...] Name Value Range Interpretation Code Description Data [facility] rce(s) Supporting Document(s ) ID Date Data Source [id number] 11/08/2018 01:39:07 PM EDT [facility] Randhawa notice left at bedside, dr hills a dvised of status Name Value Range Interpretation Code Description Data [facility] rce(s) Supporting Document(s ) ID Date Data Source [id number] 11/08/2018 01:37:23 PM EDT [facility] Review of clinicals with Dr Drake who advised cm that he will cont and reevaluate pt tomorrow for status change as pt is c urrently observation. Chartindicates pt pcp is Dr Hills, call to dr hills who repo rts her plan is toassess pt today and follow, will assess him for inpt status. Per dr hills pt [facility], call to pt emergency contact Brook Brambila who a dvisedcm she is not emergency contact but had contact number for pt sister Yuliet Pendleton t [phone].call to number , out of service.Pt will be followed by Dr Hills and evaluated for clinical status in am Name Value Range Interpretation Code Description Data [facility] rce(s) Supporting Document(s ) ID Date Data Source [id number] 11/08/2018 01:12:35 PM EDT [facility] Problem: Pressure Injury - Risk ofGoal: [...] Patient Education ActivityGoal: Patient/Family Education11/08/2018 1311 b rGace Reina RNOutcome: Progressing Towards Goal11/08/2018 1241 by Susy Rivera RNOutcome: Progressing Towards GoalProblem: Gas Exchange - ImpairedGoal : *Absence of hypoxiaOutcome: Progressing Towards GoalProblem: Patient Education: Go to Patient Education ActivityGoal: Patient/Family EducationOutcome: Progres sing Towards Goal Name Value Range Interpretation Code Description Data Harriett rce(s) Supporting Document(s ) ID Date Data Source [id number] 11/08/2018 12:42:26 PM EDT [facility] Problem: Pressure Injury - Risk ofGoal: [...] Supporting Document(s ) ID Date Data Source [id number] 11/08/2018 12:18:30 PM EDT [facility] Infectious Disease ConsultToday's Date: 11/08/2018Admit Date: 11/07/2018Subjective:Date of Consultation: November 08, 2018Referring Physician: mili hillsPatient is a 68 y.o. 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 [employer] D (chronic obstructive pulmonary disease) (HCC) J44.9Past [...] a day.Provider, Jazmine Thao [facility]: No fever, chills, malaise.Heent: No head ache, [...] Calculation (Bezet) 493 ms Calculate d P [place] 45 degrees Calculated R [place] 19 degrees Calculated T [place] 43 degrees Sammie gnosis Sinus tachycardiaInferior infarct, [...] TO AND READ BACK BY Performed by [id number] ACID Collection Time: 11/08/18 3:40 AMResult Value [...] Supporting Document(s ) ID Date Data Source [id number] 11/09/2018 10:47:59 AM EDT [facility] - [facility] Name Value Range Interpretation Description Data [...] the detectionlimit of the test. Service comment [facility] ID Date Data Source [id number] 11/09/2018 10:47:59 AM EDT [facility] Name Value Range Interpretation Description Data Sup porting Code Source(s) Document(s ) Legionella [facility] pneumophila [facility] [Presence] in Hospital Urine by Immunoassay PRESUMPTIVE NEGATIVE forL.pneumophila Se rogroup 1Antigen in urine,suggestingno recent or current infection.Infection due to Le gionellacannot be ruled out since otherserogroups and species may causedis ease,antigen may not bepresent in urine in earlyinfection, and the level ofantigen present in the urinemay be below the detectionlimit of the test. Service comment [facility] ID Date Data Source [id number] 11/08/2018 11:33:52 AM EDT [facility] Progress NoteDaily Progress Note: 019Subjective:Patient admitted [...] -- -- 13INR -- -- 1.0Recent Labs 74611CL 7.41PCO2 73*PO2 77*HCO3 46*Cta Chest W Or [...] Resolved COPD (chronic obstructive pulmonary dise ase) ([facility]) ICD-10-CM: J44.9ICD-9-CM: 496 11/08/2018 - Present [...] Supporting Document(s ) ID Date Data Source [id number] 11/08/2018 09:07:03 AM EDT [facility] Name Value Range Interpretation Description Data Sup [...] to 1.50 ng/mL ID Date Data Source [id number] 11/08/2018 09:07:03 AM EDT [facility] Name Value Range Interpretation Description Data Sup porting Code Source(s) Document(s ) Troponin 0.00-0.05 [facility] - Good I.cardiac [facility] [Mass/volume Hospital ] in Serum or Plasma [...] to 1.50 ng/mL ID Date Data Source [id number] 11/08/2018 09:28:28 AM EDT [facility] Name Value Range Interpretation Description Data Sup porting Code Source(s) Document(s ) Lactate 3.8 0.4-2.0 Above upper panic [facility] - [Moles/volu MMOL/L limits [facility]] in Hospital Serum or Plasma CALLED TO AND READ BACK FARNAZ ALAN RN 0928 11/08/18 BKENNEY ID Date Data Source [id number] 11/08/2018 09:28:28 AM EDT [facility] Name Value Range Interpretation Description Data Sup porting Code Source(s) Document(s ) Lactate 3.8 0.4-2.0 Above upper panic [facility] - Good [Moles/volu MMOL/L limits [facility]] in Hospital Serum or Plasma CALLED TO AND READ BACK FARNAZ ALAN RN 0928 11/08/18 BKENNEY ID Date Data Source [id number] 11/08/2018 07:40:38 AM EDT [facility] Bedside and Verbal shift change report carol Edwards RN (oncoming nurse) Diaz Keene RN (offgoing nurse). Report includ ed the following information SBAR, Kardex,Intake/Output, MAR and Recent Res ults. Name Value Range Interpretation Code Description Data Harriett rce(s) Supporting Document(s ) ID Date Data Source [id number] 11/08/2018 08:01:28 AM EDT [facility] Name Value Range Interpretation Description Data Sup [...] to 1.50 ng/mL ID Date Data Source [id number] 11/08/2018 08:01:28 AM EDT [facility] Name Value Range Interpretation Description Data Sup porting Code Source(s) Document(s ) Magnesium 1.6 mg/dL 1.6-2.6 [facility] - [Mass/volume] Community in Serum or Hospital Plasma ID Date Data Source [id number] 11/08/2018 07:43:01 AM EDT [facility] Name Value Range Interpretation Description Data Sup porting Code Source(s) Document(s ) Leukocytes 10.3 4.8-10.6 [facility] - [#/volume] in K/uL [facility] Blood by Hospital Automated count Erythrocytes 4.25 4.70-6.0 Below low normal [facility] - [#/volume] in M/uL 0 [facility] Blood by Hospital Automated count Hemoglobin 13.9 14.0-18. Below low normal [facility] - [Mass/volume] in g/dL 0 [facility] Blood Hospital Hematocrit 41.5 % 42.0-52. Below low normal [facility] - [Volume 0 Community Fraction] of Hospital Blood by Automated count Erythrocyte mean 97.6 FL 81.0-94. Above high normal [facility] - corpuscular 0 Community volume [Entitic Hospital volume] by Automated count Erythrocyte mean 32.7 PG 27.0-35. [facility] - corpuscular 0 [facility] [Entitic mass] by Automated count Erythrocyte mean 33.5 30.7-37. [facility] - corpuscular g/dL 3 [facility] concentration [Mass/volume] by Automated count Erythrocyte 13.5 % 11.5-14. [facility] - distribution 0 Community width [Ratio] by Hospital Automated count Platelets 195 K/uL 130-400 [facility] - [#/volume] in [facility] Blood by Hospital Automated count Platelet mean 9.6 FL 9.2-11.8 [facility] - volume [Entitic Community volume] in Blood Hospital by Automated count Segmented 88 % 48.0-72. Above high normal [facility] - neutrophils/100 0 Community leukocytes in Hospital Blood Lymphocytes/100 10 % 18.0-40. Below low normal [facility] - leukocytes in 0 [facility] Blood Hospital Monocytes/100 2 % 2.0-12.0 [facility] - leukocytes in [facility] Eosinophils/100 0 % 0.0-7.0 [facility] - leukocytes in [facility] Blood [facility] Basophils/100 0 % 0.0-3.0 [facility] - leukocytes in [facility] Segmented 9.0 K/UL 1.5-6.6 Above high normal [facility] - neutrophils Community [#/volume] in Hospital Blood Lymphocytes 1.1 K/UL 1.5-3.5 Below low normal [facility] - [#/volume] in [facility] Monocytes 0.2 K/UL 0.0-1.0 [facility] - [#/volume] in [facility] Eosinophils 0.0 K/UL 0.0-0.7 [facility] - [#/volume] in [facility] Basophils 0.0 K/UL 0.0-0.1 [facility] - [#/volume] in [facility] Differential [facility] - cell count [facility] Immature 0 % 0.0-2.0 [facility] - granulocytes/100 Community leukocytes in Hospital Blood by Automated count ID Date Data Source [id number] 11/08/2018 08:01:28 AM EDT [facility] - [facility] Name Value Range Interpretation Description Data Sup porting Code Source(s) Document(s ) Magnesium 1.6 mg/dL 1.6-2.6 [facility] - Good [Mass/volume] [facility] in Serum or Hospital Plasma ID Date Data Source [id number] 11/08/2018 08:01:28 AM EDT [facility] Name Value Range Interpretation Description Data Sup porting Code Source(s) Document(s ) Troponin 0.00-0.05 [facility] - Good I.cardiac [facility] [Mass/volume Hospital ] in Serum or Plasma [...] to 1.50 ng/mL ID Date Data Source [id number] 11/08/2018 07:43:01 AM EDT [facility] Name Value Range Interpretation Description Data Sup porting Code Source(s) Document(s ) Leukocytes 10.3 4.8-10.6 [facility] - [#/volume] in K/uL Good Blood by [facility] Erythrocytes 4.25 4.70-6.0 Below low normal [facility] - [#/volume] in M/uL 0 Good Blood by [facility] Hemoglobin 13.9 14.0-18. Below low normal [facility] - [Mass/volume] in g/dL 0 Good Blood [facility] Hematocrit 41.5 % 42.0-52. Below low normal [facility] - [Volume 0 Good Fraction] of [facility] Blood by Hospital Automated count Erythrocyte mean 97.6 FL 81.0-94. Above high normal [facility] - corpuscular 0 Good volume [Entitic [facility] volume] by Hospital Automated count Erythrocyte mean 32.7 PG 27.0-35. [facility] - corpuscular 0 Good hemoglobin [facility] [Entitic mass] Hospital by Automated count Erythrocyte mean 33.5 30.7-37. [facility] - corpuscular g/dL 3 [facility] hemoglobin [facility] [Mass/volume] by Automated count Erythrocyte 13.5 % 11.5-14. [facility] - distribution 0 Good width [Ratio] by [facility] Automated count Hospital Platelets 195 K/uL 130-400 [facility] - [#/volume] in [facility] Blood by [facility] Automated count Hospital Platelet mean 9.6 FL 9.2-11.8 [facility] - volume [Entitic Good volume] in Blood [facility] by Automated Hospital count Segmented 88 % 48.0-72. Above high normal [facility] - neutrophils/100 0 [facility] leukocytes in [facility] Lymphocytes/100 10 % 18.0-40. Below low normal [facility] - leukocytes in 0 [facility] Monocytes/100 2 % 2.0-12.0 [facility] - leukocytes in [facility] Eosinophils/100 0 % 0.0-7.0 [facility] - leukocytes in [facility] Basophils/100 0 % 0.0-3.0 [facility] - leukocytes in [facility] Segmented 9.0 K/UL 1.5-6.6 Above high normal [facility] - neutrophils Good [#/volume] in [facility] Lymphocytes 1.1 K/UL 1.5-3.5 Below low normal [facility] - [#/volume] in [facility] Monocytes 0.2 K/UL 0.0-1.0 [facility] - [#/volume] in [facility] Eosinophils 0.0 K/UL 0.0-0.7 [facility] - [#/volume] in [facility] Basophils 0.0 K/UL 0.0-0.1 [facility] - [#/volume] in [facility] Differential [facility] - cell count Good method [facility] Immature 0 % 0.0-2.0 [facility] - granulocytes/100 Good leukocytes in [facility] Hospital Automated count ID Date Data Source 36N*ENCOUNTER 11/08/2018 05:07:03 AM EDT [facility] - [facility] [id number] [facility] [address]T IN D SURG [address] [place] [address] [phone]/ GabeEvelio (Male) [id number] I 2 ED Dispo:ADMIT Chief Complaint: Shortness of Breath Diagnosis: Acute exacerbation of chronic obstructive pulmonary disease ([employer]) (HCC) [] Community acquired pneumonia of right lower lobe of lung (H CC) [] Current Providers: Attending: Meghna Powell S Consulting Provider: Eloisa Hills Primary Nurse: Nicole Lang Tech: MIKE LouN: [id number] [employer] [id number] - Bsi [employer] MrnMRN: [id number] [employer] [id number] - Bs hsi [facility] Medva Age SexDOB 1950 AGE 68 SEX Male Primary Care Provider: Mili Hills DO Phone: [phone]: (No Known Allergies)Date Reviewed: 11/07/2018Reviewed by: Rashaun Albrecht RN - Review CompleteED Provider Notes: No notes of this type exist for this encounter.ED Orders CLORAZEPATE DIPOTASSIUM 3.75 MG TAB [#[id number]] Priority: Routine Class: Historical Med IPRATROPIUM-ALBUTEROL 2.5 MG-0.5 MG/* [#[id number]] Priority: STAT Class: Normal MODE OF DELIVERY -> N ebulizer METHYLPREDNISOLONE (PF) 125 MG/2 ML * [#[id number]] Priority: STAT Class: Normal CEFTRIAXONE 1 GRAM IVPB MBP [#[id number]] Priority: STAT Class: Normal Antibiotic Indicatio ns -> Pneumonia (CAP) AZITHROMYCIN 500 MG IN NS 250 ML [#[id number]] Priority: STAT Class: N ormal Antibiotic Indications -> Pneumonia (CAP) IOPAMIDOL 76 % IV SOLN [# [id number]] Priority: STAT Class: Normal HEPARIN (PORCINE) 5,000 UNIT/ML IJ S* [#[id number]] Priority: STAT Class: Normal IPRATROPIUM-ALBUTEROL 2.5 MG-0.5 MG/* [#[id number]] Priority : STAT Class: Normal MODE OF DELIVERY -> Nebulizer METHYLPREDNISOLONE (PF) 40 MG/ML IJ * [# [id number]] Priority: STAT Class: Normal SODIUM CHLORIDE 0.9% BOLUS IV [#[id number]] Pr iority: STAT Class: Normal CINACALCET 30 MG TAB [#[id number]] Priority: STAT Cla ss: Normal LAMOTRIGINE 25 MG TAB [#[id number]] Priority: STAT Class: N ormal ALPRAZOLAM 0.25 MG TAB [#[id number]] Priority: STAT Class: Normal [id number] STARCH AND PROSIZE MIXER - ED ONLY [#[id number]] Priority: STAT Class: Hospital Performed Standing Or bassem Information Remaining Occurrences:0/1 Interval:Continuous Last released :11/07/2018 Released orders: SatNov 07, 2018 7:27 PM by: LISA POWELL Type: -> Bedsid e [id number] PULSE OXIMETRY CONTINUOUS [#[id number]] Priority: STAT Class: Hospital Performe d Standing Order Information Remaining Occurrences:0/1 Interval:CONTINUOUS Last release d:11/07/2018 Released orders: SatNov 07, 2018 7:27 PM by: LISA POWELL [id number] PULSE OXIM ETRY SPOT CHECK [#[id number]] Priority: STAT Class: Hospital Performed Standing Order Inf ormation Remaining Occurrences:0/1 Interval:ONE TIME Last released:11/07/2018 Release d orders: SatNov 07, 2018 7:27 PM by: LISA POWELL [id number] OBTAIN OLD EKG [#[id number]] Priority: Routine Class: Hospital Performed Standing Order Information Remainin g Occurrences:0/1 Interval:ONE TIME Last released:11/07/2018 Released orders : SatNov 07, 2018 7:27 PM by: LISA POWELL [id number] STARCH AND PROSIZE MIXER - ED ONLY [# [id number]] Priority: STAT Class: Hospital Performed Type: -> Bedside Released on: 11/07/2018 7:27 PM [id number] PULSE OXIMETRY CONTINUOUS [#[id number]] Priority: STAT Class: Hospital Performe d Released on: 11/07/2018 7:27 PM [id number] PULSE OXIMETRY SPOT CHECK [#[id number]] Priori ty: STAT Class: Hospital Performed Released on: 11/07/2018 7:27 PM [id number] OBTAIN OLD EKG [#[id number]] Priority: STAT Class: Hospital Performed Released on: 11/07/2018 7:27 PM [id number] VITAL SIGNS PER UNIT ROUTINE [#[id number]] Priority: STAT Class: Hospital Performed Stand ing Order Information Remaining Occurrences:0/1 Interval:CONTINUOUS Last released :11/08/2018 Released orders: Sat Nov 08, 2018 3:13 AM by: POLO MOLINA Comment:More freque ntly if Indicated. [id number] AMBULATE WITH ASSISTANCE [#[id number]] Priority: STAT Class: H ospital Performed Standing Order Information Remaining Occurrences:0/1 Interval:EVERY 8 HOURS Last released:11/08/2018 Released orders: [facility] Nov 08, 2018 3:13 AM by: POLO MOLINA [id number] APPLY/MAINTAIN SEQUENTIAL COMPRESSIO* [#[id number]] Priority: STAT Class: Hospital Performe d Standing Order Information Remaining Occurrences:0/1 Interval:CONTINUOUS Last release d:11/08/2018 Released orders: Sat Nov 08, 2018 3:13 AM by: POLO MOLINA [id number] VITAL SIGNS PER UNIT ROUTINE [#[id number]] Priority: STAT Class: Hospital Performed Comment:More frequ ently if Indicated. Released on: 11/08/2018 3:13 AM [id number] AMBULATE WITH ASSISTANCE [# [id number]] Priority: STAT Class: Hospital Performed Released on: 11/08/2018 3:13 AM [id number] APPLY/ MAINTAIN SEQUENTIAL COMPRESSIO* [#[id number]] Priority: STAT Class: Hospital Performed Released on: 11/08 3:13 AM [id number] RT--OXYGEN CANNULA [#[id number]] Priority: STAT Class: H ospital Performed Standing Order Information Remaining Occurrences:0/1 Interval:CONTIN UOUS Last released:11/07/2018 Released orders: SatNov 07, 2018 7:27 PM by: CED POWELL LPM -> 2 Indications for O2? -> CHEST PAIN [id number] RT--OXYGEN CANNULA [# [id number]] Priority: STAT Class: Hospital Performed LPM -> 2 Indications for O2? -> CHEST PAIN Released on: 11/07/2018 7:27 PM [id number] DIET NPO [#[id number]] Priority: STA T Class: Hospital Performed Standing Order Information Remaining Occurrences:0/1 Inter seema:DIET EFFECTIVE NOW Last released:11/07/2018 Released orders: SatNov 07, 2018 7:27 PM by: LISA POWELL NPO options: -> With Meds [id number] DIET NPO [#[id number]] Priority: STAT Class: Hospital Performed NPO options: -> With Meds Released on: 11/07/2018 7:27 PM [id number] SALINE LOCK IV [#[id number]] Priority: STAT Class: Hospital Perfor med Standing Order Information Remaining Occurrences:0/1 Interval:ONE TIME Last release d:11/07/2018 Released orders: SatNov 07, 2018 7:27 PM by: LISA POWELL IVT11 SALINE LOC K IV [#[id number]] Priority: STAT Class: Hospital Performed Released on: 11/07 7:27 PM [id number] METABOLIC PANEL, COMPREHENSIVE [#[id number]] Priority: STAT Class: E R Collect Standing Order Information Remaining Occurrences:0/1 Interval:ONE TIME Last r eleased:11/07/2018 Released orders: SatNov 07, 2018 7:27 PM by: LISA POWELL [id number] CBC WITH AUTOMATED DIFF [#[id number]] Priority: STAT Class: ER Collect Standing Order Info rmation Remaining Occurrences:0/1 Interval:ONE TIME Last released:11/07/2018 Released orders: SatNov 07, 2018 7:27 PM by: LISA POWELL [id number] TROPONIN I [#[id number]] Priority: STAT Class: ER Collect Standing Order Information Remaining Occurre nces:0/1 Interval:ONE TIME Last released:11/07/2018 Released orders: SatNov 07 7:27 PM by: ILSA POWELL [id number] MAGNESIUM [#[id number]] Priority: ST AT Class: ER Collect Standing Order Information Remaining Occurrences:0/1 Interval:ONE TI ME Last released:11/07/2018 Released orders: SatNov 07, 2018 7:27 PM by: CED POWELL [id number] BNP [#[id number]] Priority: STAT Class: ER Collect Sta nding Order Information Remaining Occurrences:0/1 Interval:ONE TIME Last released:0 11/07/2018 Released orders: SatNov 07, 2018 7:27 PM by: LISA POWELL [id number] PROTHROMBI N TIME + INR [#[id number]] Priority: STAT Class: ER Collect Standing Order Information Remaining Occurrences:0/1 Interval:ONE TIME Last released:11/07/2018 Released orders : SatNov 07, 2018 7:27 PM by: LISA POWELL [id number] PTT [# [id number]] Priority: STAT Class: ER Collect Specimen Source: Blood Standing Order Information Remaining Occurrences:0/1 Interval:ONE TIME Last released:11/07/2018 Released orders : SatNov 07, 2018 7:27 PM by: LISA POWELL [id number] LACTIC ACID [# [id number]] Priority: STAT Class: ER Collect Standing Order Information Remaining Occurrences:0 /2 Interval:NOW THEN EVERY 4 HOURS Last released:11/07/2018 Released orders : SatNov 07, 2018 11:01 PM by: LISA POWELL SatNov 07, 2018 7:27 PM by: CED POWELL [id number] URINALYSIS W/ RFLX MICROSCOPIC [#[id number]] Priority: STAT Class: ER Collect Sta nding Order Information Remaining Occurrences:0/1 Interval:ONE TIME Last released:0 11/07/2018 Released orders: SatNov 07, 2018 7:27 PM by: LISA POWELL [id number] METABOLIC PANEL, COMPREHENSIVE [#[id number]] Priority: STAT Class: ER Collect Specimen Source: Plasma Specim en Collected: 11/07/2018 8:10 PM Resulting Agency: [facility] Test ID: MPL Rel eased on: 11/07/2018 7:27 PM [id number] CBC WITH AUTOMATED DIFF [#[id number]] Priority: STAT C lass: ER Collect Specimen Source: Whole Blood Specimen Collected: 11/07/2018 8:10 PM Resulting Agency: [facility] Test ID: CBCA Released on: 11/07/2018 7:27 PM [id number] TROPONIN I [#[id number]] Priority: STAT Class: ER Collect Specimen Source: Plasma Specim en Collected: 11/07/2018 8:10 PM Resulting Agency: [facility] Test ID: TROIP R eleased on: 11/07/2018 7:27 PM [id number] MAGNESIUM [#[id number]] Priority: STAT Class: ER Collect Specimen Source: Plasma Specimen Collected: 11/07/2018 8:10 PM Resulting Agency: [facility] Test ID: MGPL Released on: 11/07/2018 7:27 PM [id number] BNP [#[id number]] Priority: STAT Class: ER Collect Specimen Source: Plasma Specim en Collected: 11/07/2018 8:10 PM Resulting Agency: [facility] Test ID: BNPPB R eleased on: 11/07/2018 7:27 PM [id number] PROTHROMBIN TIME + INR [#[id number]] Priority: STAT Class: ER Collect Specimen Source: Plasma Specimen Collected: 11/07/2018 8:10 PM Resulting Agency: [facility] Test ID: APTHR Released on: 11/07/2018 7:27 PM [id number] PTT [#[id number]] Priority: STAT Class: ER Collect Specimen Source: Plasma Specim en Collected: 11/07/2018 8:10 PM Resulting Agency: [facility] Test ID: APTT Re leased on: 11/07/2018 7:27 PM [id number] LACTIC ACID [#[id number]] Priority: STAT Class: ER Collect Specimen Source: Plasma Specimen Collected: 11/07/2018 8:10 PM Resulting Agency: [facility] Test ID: LAC Released on: 11/07/2018 7:27 PM [id number] URINALYSIS W/ RFLX MICROSCOPIC [#[id number]] Priority: STAT Class: ER Collect Resulting Agency: [facility] Test ID: UA Released on: 11/07/2018 7:27 PM [id number] BLOOD GAS, ARTERIAL [#[id number]] Priority: STAT Class: ER Collect Standing Order Information Remaining Occurre nces:0/1 Interval:ONE TIME Last released:11/07/2018 Released orders: SatNov 07 8:18 PM by: LISA POWELL [id number] BLOOD GAS, ARTERIAL [#[id number]] Priority: ST AT Class: ER Collect Released on: 11/07/2018 8:18 PM [id number] BLOOD GAS, ARTERIAL [# [id number]] Priority: Routine Class: ER Collect Resulting Agency: [facility] Test ID: ABGG1 Standing Order Information Remaining Occurrences:0/1 Released orders: SatNov 07, 2018 9:23 PM by: Automatic Batch Process [id number] BLOOD GAS, ARTERIAL [#[id number]] Priority: Routine Class: ER Collect Specimen Source: Arterial Blood Specimen Collect ed: 11/07/2018 9:23 PM Resulting Agency: [facility] Test ID: ABGG1 Released o n: 11/07/2018 9:23 PM [id number] LACTIC ACID [#[id number]] Canceled Priority: STAT Class: ER Collect Specimen Collected: 11/08/2018 2:30 AM Resulting Agency: [facility] Test ID: LAC Canceled by SOHAIL OLIVO IN [employer] on Sat Nov 08, 2018 3:30 AM Reason: O ther Comment: GROSSLY HEMOLYZED. NOTFIED JAMIL RN/ED 0329 11/08/18 Released on: 11/07/2018 11:01 PM [id number] CBC WITH AUTOMATED DIFF [#[id number]] Priority: Routine Class: ER Collect Standing Order Information Remaining Occurrences:2/3 Interval:DAILY Last released:10/14 Released orders: SatNov 08, 2018 3:13 AM by: POLO MOLINA [id number] METABOLIC PANEL, COMPREHENSIVE [#[id number]] Priority: Routine Class: ER Collect Standing Order Information Remaining Occurrences:3/3 Interval:DAILY [id number] PROTHROMBIN TIME + INR [# [id number]] Priority: Routine Class: ER Collect Standing Order Information Remaining Occurrences:1 / Interval:TOMORROW AM [id number] MAGNESIUM [#[id number]] Priority: Rout ine Class: ER Collect Standing Order Information Remaining Occurrences:1/3 Interval:DAILY Last released:11/08/2018 Released orders: [facility] Nov 08, 2018 3:13 AM by: POLO MOLINA [facility] Nov 08, 2018 3:13 AM by: POLO MOLINA [id number] TROPONIN I [# [id number]] Priority: Timed Class: ER Collect Standing Order Information Remaining Occurrences:2 /3 Interval:EVERY 6 HRS Last released:11/08/2018 Released orders: [facility] Nov 08, 2018 3:13 AM by: POLO MOLINA [id number] CBC WITH AUTOMATED DIFF [#[id number]] Priority: Routin e Class: ER Collect Resulting Agency: [facility] Test ID: CBCA Released on : 11/08/2018 3:13 AM [id number] MAGNESIUM [#[id number]] Priority: Routine Class : ER Collect Resulting Agency: [facility] Test ID: MGPL Released on: 11/08/2018 3:13 AM [id number] MAGNESIUM [#[id number]] Canceled Priority: Routine Class: ER Collect Specimen Collected: 11/08/2018 4:00 AM Resulting Agency: [facility] Test ID: MGPL Canceled by SOHAIL OLIVO IN [employer] on [facility] Nov 08, 2018 3:14 AM Reason: Other Comment: Duplicate Released on: 11/08/2018 3:13 AM [id number] TROPONIN I [#[id number]] Priority: Timed Class: ER Collect Resulting Agency: [facility] Test ID: TROIP Released on: 11/08/2018 3:13 AM [id number] LACTIC ACID [#[id number]] Prior ity: STAT Class: ER Collect Standing Order Information Remaining Occurrences:0/1 Inter seema:ONE TIME Last released:11/08/2018 Released orders: [facility] Nov 08, 2018 3:35 AM by: JAMIL HUNTER [id number] LACTIC ACID [#[id number]] Priority: STAT Class: E R Collect Specimen Source: Plasma Specimen Collected: 11/08/2018 3:40 AM Resulting Agency: [facility] Test ID: LAC Released on: 11/08/2018 3:35 AM [id number] EKG, 12 LEAD, INITIAL [#[id number]] Priority: STAT Class: Hospital Performed Standing Order Information Remaini ng Occurrences:0/1 Interval:ONE TIME Last released:11/07/2018 Released orders : SatNov 07, 2018 7:27 PM by: LISA POWELL Reason for Exam: -> sob [id number] EKG, 12 LEAD, INITIAL [#[id number]] Priority: STAT Class: Hospital Performed Specimen Collected : 11/07/2018 7:15 PM Resulting Agency: [facility] Test ID: [id number] Reason for Exam: -> sob Released on : 11/07/2018 7:27 PM [id number] XR CHEST PORT [#[id number]] Priority: STAT Class: H ospital Performed Standing Order Information Remaining Occurrences:0/1 Interval:ONE TI ME Last released:11/07/2018 Released orders: SatNov 07, 2018 7:27 PM by: CED POWELL Reason for Exam -> sob [id number] XR CHEST PORT [#[id number]] Priority: STAT Class: Hospital Performed Specimen Collected: 11/07/2018 8:08 PM Resulting Agency: [facility] Test I D: [id number] Reason for Exam -> sob Released on: 11/07/2018 7:27 PM [id number] CTA CHEST W OR W WO CO NT [#[id number]] Priority: STAT Class: Hospital Performed Standing Order Information Remaining Occurrences:0/1 Interval:ONE TIME Last released:11/07/2018 Released orders : SatNov 07, 2018 10:02 PM by: LISA POWELL [id number] CTA CHEST W OR W WO CONT [# [id number]] Priority: STAT Class: Hospital Performed Specimen Collected: 11/08/2018 12:31 AM Resultin g Agency: [facility] Test ID: [id number] Released on: 11/07/2018 10:02 PM [id number] CULTURE, BLOOD [#[id number]] Priority: STAT Class: ER Collect Specimen Source: Blood Standing Order Information Remaining Occurrences:0/1 Interval:ONE TIME Last released:11/07/2018 Rel eased orders: SatNov 07, 2018 7:27 PM by: LISA POWELL [id number] CULTURE, BLOOD [#[id number]] Priority: STAT Class: ER Collect Specimen Source: Blood Standing Order Informat ion Remaining Occurrences:0/1 Interval:ONE TIME Last released:11/07/2018 Released o rders: SatNov 07, 2018 7:27 PM by: LISA POWELL [id number] CULTURE, URINE [#[id number]] Priority: STAT Class: ER Collect Specimen Source: Clean catch Standing Order In formation Remaining Occurrences:0/1 Interval:ONE TIME Last released:11/07/2018 Releas ed orders: SatNov 07, 2018 7:27 PM by: LISA POWELL Reason for Culture -> Other [id number] C ULTURE, BLOOD [#[id number]] Priority: STAT Class: ER Collect Specimen Source: Bloo d Specimen Collected: 11/07/2018 8:10 PM Resulting Agency: [facility] Test ID: HBCS Released on: 11/07/2018 7:27 PM [id number] CULTURE, BLOOD [#[id number]] Priori ty: STAT Class: ER Collect Specimen Source: Blood Specimen Collected: 11/07/2018 8:00 PM Resultin g Agency: [facility] Test ID: HBCS Released on: 11/07/2018 7:27 PM [id number] CULTURE, URINE [#[id number]] Priority: STAT Class: ER Collect Specimen Source : Clean catch Resulting Agency: [facility] Test ID: NEWSPAPER ILLUSTRATOR Reason for Culture -> Other Released on: 11/07/2018 7:27 PM [id number] IP CONSULT TO PRIMARY CARE PROVIDER [#[id number]] Priority: STAT Class: Hospital Performed Standing Order Information Remaining Occurrences:0 /1 Interval:ONE TIME Last released:11/07/2018 Released orders: SatNov 07, 2018 10:24 PM by: LISA POWELL Reason for Consult: -> SOB Did you call or speak to the consulting provider? -> No Consult To -> Reinier Schedule When? -> TODAY [id number] IP CONSULT TO PRIMARY CARE PRO VIDER [#[id number]] Priority: STAT Class: Hospital Performed Comment:dr powell spoke to dr hills Reason for Consult: -> SOB Did you call or speak to the consulting provider? -> No Consult To -> Reinier Schedule When? -> TODAY Released on: 11/07/2018 10:24 PM [id number] INITIAL PHYSICIAN ORD ER: OBSERVATION* [#[id number]] Priority: Routine Class: ADT Pend Transfer Standing Order Information Remaining Occurrences:0/1 Interval:ONE TIME Last released:11/08/2018 Released orders : Sat Nov 08, 2018 3:13 AM by: POLO MOLINA Patient Class: -> OBSERVATION Admitting Sammie gnosis -> COPD (chronic obstructive pulmonary disease) ([facility]) Admitting Physician -> POLO MOLINA Attending Physician -> POLO MOLINA [id number] INITIAL PHYSICIAN ORDER: OBSERVATION* [#[id number]] Prio rity: Routine Class: ADT Pend Transfer Patient Class: -> OBSERVATION Admitting Diagnosis -> COPD (chronic obstructive pulmonary disease) ([facility]) Admitting Physician -> POLO MOLINA g Physician -> POLO MOLINA Released on: 11/08/2018 3:13 AM COD2 FULL CODE [#[id number]] Priority: STAT Class: Hospital Performed Standing Order Information Josie medina Occurrences:0/1 Interval:CONTINUOUS Last released:11/08/2018 Released orders : Sat Nov 08, 2018 3:13 AM by: POLO MOLINA COD2 FULL CODE [#[id number]] Priority: STAT Class: Hospital Performed Released on: 11/08/2018 3:13 Chivo Evelio MR#: [id number] * Rm: [id number]: Wt: Code: Full Code Is o:Diagnosis:COPD (chronic obstructive pulmonary disease) ([facility]) [J44.9]Allergies: No Known Allergies -------- Current as of: 11/08/18 0507 GI=Given IC=IV Complet ed NB=New Bag --albuterol-ipratropium (DUO-NEB) 2.5 MG-0.5 MG/3 ML #[id number] Admin Amount: 3 mL Ordered Dose: 3 mL Route: Nebulization Freq: NOW Start Date: 11/07/18 Administration times (back 96 hours, ahead 96 hours): 11/07/18: 2099GI -----methylPREDNISolone (PF) (Solu-MEDROL) injection 125 mg #[id number] Admin Amount: 2 mL = 125 mg of 125 mg/2 mL Ordered Dose: 125 mg Route: Int raVENous Freq: NOW Start Date: 11/07/18 Administration times (back 96 hours, ahe ad 96 hours): 11/07/18: 2199GI -----cefTRIAXone (ROCEPHIN) 1 g in 0.9% sodium chloride (MBP/ADV) 50 m L M*#[id number] Admin Amount: 1 g Ordered Dose: 1 g Route: IntraVENous Freq: NOW Start Date: 11/07/18 Rate: 100 mL/hr Duration: 30 Minutes Administration patria es (back 96 hours, ahead 96 hours): 11/07/18: 2232NB 2306IC -----azithromycin (ZITHROMAX) 500 mg in NS 250 mL #[id number] Admin Amount: 250 mL = 500 mg of 500 mg/250 mL Ordered Dose: 500 mg Ro [place]: IntraVENous Freq: NOW Start Date: 11/07/18 Rate: 250 mL/hr Dura tion: 60 Minutes Administration times (back 96 hours, ahead 96 hours): 11/07/18: 2232GI -----iopamidol (ISOVUE-370) 76 % injection 100 mL #[id number] Admin Amount: 100 mL Ordered Dose: 100 mL Route: IntraVENous Freq: RAD ONCE Start Date: 11/07/18 Administration times (back 96 hours, ahead 96 hours): 11/08/18: 0015GI -----heparin (porcine) injection 5,000 Units #[id number] Admin Amount: 1 mL = 5,000 Units of 5,000 Units/mL Ordered Dose: 5,000 Units Route: SubCUTAneous Freq: EVERY 12 HOURS Start Date: 11/08/18 Administration times (main k 96 hours, ahead 96 hours): 11/08/18: 313 1514 11/09/18: 313 15111/10/18: 31311/11/18: 31311/12/18: 0314Gabe Evelio MR#: [id number] * Rm: 344-01H t: Wt: Code: Full Code Iso:Diagnosis:COPD (chronic obstructive pulmonary disease) ([facility]) [J44.9]Allergies: No Known Allergies -------- Current as of: 11/08/18 0507 GI=Given IC=IV Complet ed NB=New Bag --albuterol-ipratropium (DUO-NEB) 2.5 MG-0.5 MG/3 ML #[id number] Admin Amount: 3 mL Ordered Dose: 3 mL Route: Nebulization Freq: EVERY 4 HOURS NEEDED Start Date: 11/08/18 No administration times (back 96 hours, ahead 96 hours). ------methylPREDNISolone (PF) (SOLU-MEDROL) injection 40 mg #[id number] Admin Amount: 1 mL = 40 mg of 40 mg/mL Ordered Dose: 40 mg Route: IntraVENo us Freq: EVERY 6 HOURS Start Date: 11/08/18 Administration times (back 96 hours, ahe ad 96 hours): 11/08/18: 599 1199 1800 11/09/18: 599 1200 179911/10/18: 599 1200 1800 11/11/18: 599 1200 1800 11/12/18: 0000 ---sodium chloride 0.9 % bolus infusion 500 mL #[id number] Admin Amount: 500 mL Ordered Dose: 500 mL Route: IntraVENous Freq: ONCE Start Date: 11/08/18 Rate: 666.7 mL/hr Duration: 45 Minutes Administration patria es (back 96 hours, ahead 96 hours): 11/08/18: 0436NB -----cinacalcet (SENSIPAR) tablet 60 mg #[id number] Admin Amount: 2 Tab (2 x 30 mg Tab) Ordered Dose: 60 mg Route: Oral Dg q: DAILY Start Date: 11/08/18 Administration times (back 96 hours, ahead 96 hours): 11/08/18: 0900 11/09/18: 0911/10/18: 0911/11/18: 0900 ---lamoTRIgine (LaMICtal) tablet 50 mg #[id number] Admin Amount: 2 Tab (2 x 25 mg Tab) Ordered Dose: 50 mg Route: Oral Dg q: 2 TIMES DAILY Start Date: 11/08/18 Administration times (back 96 hours, ahead 96 hours): 11/08/18: 899 1800 11/09/18: 09 1800 11/10/18: 09 1800 11/11/18: 899 1800Gabe Reyes cristina MR#: [id number] * Rm: [id number]: Wt: Code: Full Code Iso:Diagnosis:COPD (chronic obstructive pulmonary disease) ([facility]) [J44.9]Allergies: No Known Allergies -------- Current as of: 11/08/18 0507 GI=Given IC=IV Complet ed NB=New Bag --ALPRAZolam (XANAX) tablet 0.25 mg #[id number] Admin Amount: 1 Tab (1 x 0.25 [...] Supporting Document(s ) ID Date Data Source [id number] 11/08/2018 04:41:01 AM EDT [facility] Call placed to Dr. Molina - Bolus of NSS started as per MD order VerbalCall placed to Kim regarding the IV bolus infusin g - RN aware Name Value Range Interpretation Code Description Data Harriett rce(s) Supporting Document(s ) ID Date Data Source [id number] 11/08/2018 04:31:42 AM EDT [facility] TRANSFER - OUT REPORT:Verbal report give n to Kim(name) on [facility] ine progression of careReport consisted [...] 4;Non-adherent dressing 11/07/2018 10:00 PMHub Color/Line Status [place] 11/07/2018 10:00 PMAlcohol Cap Used Yes 11/07/2018 10:00 PMOpportunity for questi ons and clarification was provided.Patient transported with: MonitorO2 @ bipap lite rsRegistered NurseTech Name Value Range Interpretation Code Description Data Harriett rce(s) Supporting Document(s ) ID Date Data Source [id number] 11/08/2018 04:19:25 AM EDT [facility] Called the floor to give reportWaiting f or Huey to call back Name Value Range Interpretation Code Description Data Harriett rce(s) Supporting Document(s ) ID Date Data Source [id number] 11/08/2018 04:16:22 AM EDT [facility] Name Value Range Interpretation Description Data Sup porting Code Source(s) Document(s ) Lactate 4.1 0.4-2.0 Above upper panic [facility] - [Moles/volu MMOL/L limits [facility]] in Hospital Serum or Plasma CALLED TO AND READ BACK MORENO LANG RN/0415 11/08/18 JERRY KERN ID Date Data Source [id number] 11/08/2018 04:16:22 AM EDT [facility] Name Value Range Interpretation Description Data Sup porting Code Source(s) Document(s ) Lactate 4.1 0.4-2.0 Above upper panic [facility] - Good [Moles/volu MMOL/L limits [facility]] in Hospital Serum or Plasma CALLED TO AND READ BACK BYJAMIL LANG RN/0415 11/08/18 JERRY KERN ID Date Data Source [id number] 11/08/2018 02:39:50 AM EDT [facility] PT Returned fromCT and continues on Bipa pPt placed on monitor and will continue to assessPT is non verval Name Value Range Interpretation Code Description Data Harriett rce(s) Supporting Document(s ) ID Date Data Source [id number] 11/08/2018 12:40:57 AM EDT [facility] Examination: CTA Chest ? PE angiography History: Hypoxia; rule out pneumonia versus pulmonary embolismPriors: NoneTechnique : Low-dose, multiplanar, helical CTA chest was performed with bolusIVinjection from lungapices to bases. 3D-reformatted images were obtained and reviewed on a Enevate viewing workstation anddirectly supervised.Contrast: A total of [...] the left and right as aresult of instrument and electrical technician nicchanges in the right hemithorax.Heart shows no [...] Supporting Document(s ) ID Date Data Source [id number] 11/07/2018 11:08:18 PM EDT [facility] Attempt to start IV in patient not succe ssful - Blood draw completedERMD awareWill continue to assess Name Value Range Interpretation Code Description Data Harriett rce(s) Supporting Document(s ) ID Date Data Source [id number] 11/07/2018 09:31:52 PM EDT [facility] Pt being placed on bipap by COUNTER TACKER Name Value Range Interpretation Code Description Data Harriett rce(s) Supporting Document(s ) ID Date Data Source [id number] 11/07/2018 09:28:07 PM EDT [facility] Name Value Range Interpretation Description Data Sup porting Code Source(s) Document(s ) pH of Arterial 7.41 7.35-7.4 [facility] - blood 5 [facility] Hospital Carbon dioxide 73 mmHg 32-48 Above [...] 97 % 94-98 [facility] - saturation in [facility] Blood [facility] Base excess in 17.6 0-3 Above high normal [facility] - Arterial blood mmol/L Community by calculation Hospital Body site [facility] - [facility] Hospital Arterial [facility] - patency Wrist [facility] artery --pre Hospital arterial puncture NASAL [id number] TO AND READ BACK BYNANCY BYRNES at 2123 by SILVIO VELASCO [id number] ID Date Data Source [id number] 11/07/2018 09:28:07 PM EDT [facility] - [facility] Name Value Range Interpretation Description Data Sup porting Code Source(s) Document(s ) pH of Arterial 7.41 7.35-7.4 [facility] - Good blood [address] [place] [address] Carbon dioxide 73 mmHg 32-48 Above upper panic [facility] - Good [Partial limits [facility] pressure] in Hospital Arterial blood Oxygen 77 mmHg 83-108 Below low normal [facility] - Good [Partial [facility] pressure] in Hospital Arterial blood Carbon 49 19-24 Above high normal [facility] - Good dioxide, total mmol/L [facility] [Moles/volume] Hospital in Arterial blood Bicarbonate 46 21-28 Above upper panic [facility] - Go od [Moles/volume] mmol/L limits [facility] in Arterial Hospital blood Oxygen 97 % 94-98 [facility] - Good saturation in [facility] Base excess in 17.6 0-3 Above high normal [facility] - Good Arterial blood mmol/L [facility] by calculation Hospital Body site [facility] - Good [facility] Arterial [facility] - Good patency Wrist [facility] artery --pre Hospital arterial puncture NASAL [id number] TO AND READ BACK BYNANCY BYRNES at 2123 by SILVIO VELASCO [id number] ID Date Data Source [id number] 11/07/2018 08:10:26 PM EDT [facility] - Good [facility] XR CHEST PORTCLINICAL INDICATION PROVIDE D:. [...] Supporting Document(s ) ID Date Data Source [id number] 11/12/2018 06:41:47 AM EDT [facility] Name Value Range Interpretation Description Data Sup porting Code Source(s) Document(s ) Service comment [facility] - [facility] Bacteria [facility] - identified in [facility] Unspecified Hospital specimen by Culture ID Date Data Source [id number] 11/07/2018 10:10:30 PM EDT [facility] Name Value Range Interpretation Description Data Sup porting Code Source(s) Document(s ) Natriuretic 41 pg/mL 0-100 [facility] - peptide B [facility] [Mass/volume] Hospital in Serum or Plasma ID Date Data Source [id number] 11/07/2018 10:01:44 PM EDT [facility] Name Value Range Interpretation Description Data Sup porting Code Source(s) Document(s ) aPTT in 25.4 SEC 21.0-28. [facility] - Platelet poor 0 [facility] plasma by [facility] Coagulation assay Therapeutic Range = 42.0-60.0 secs ID Date Data Source [id number] 11/07/2018 10:01:44 PM EDT [facility] Name Value Range Interpretation Description Data Sup porting Code Source(s) Document(s ) Prothrombin 10.3 sec 9.4-11.1 [facility] - time (PT) [facility] INR in 1.0 0.8-1.2 [facility] - Platelet poor [facility] plasma by [facility] Coagulation assay ID Date Data Source [id number] 11/07/2018 10:01:22 PM EDT [facility] [place] Value Range Interpretation Description Data Sup porting Code Source(s) Document(s ) Lactate 2.5 0.4-2.0 Above upper panic [facility] - [Moles/volu MMOL/L limits Community me] in Hospital Serum or Plasma CALLED TO AND READ BACK BYLISA POWELL [place] 11/07/18 2201 PATRIZIA MAURICE ID Date Data Source [id number] 11/07/2018 09:54:37 PM EDT [facility] Name Value Range Interpretation Description Data Sup [...] to 1.50 ng/mL ID Date Data Source [id number] 11/07/2018 09:54:37 PM EDT [facility] Name Value Range Interpretation Description Data Sup [...] non- Americans (GFRNA), and normalized to 1.7 5v2ajiw surface area. The physician must decide which value applies tothe patient . The MDRD study equation should only be used inindividuals age 18 or older. It has no t been validated for thefollowing: women, patients with serious comorbid co nditions,or on certain medications, or persons with extremes of body size,muscl e mass, or nutritional status. Calcium [Mass/volume] in 9.2 mg/dL 8.5-10.1 [facility] - [facility] Serum or Plasma Hospital Bilirubin.total 0.1 mg/dL [...] 1.7-4.7 [facility] - Community Serum by [facility] Hospital Albumin/Globulin [Mass 0.7 0.7-2.8 [facility] - Community Ratio] in Serum or Plasma Hosp ital ID Date Data Source [id number] 11/07/2018 09:54:37 PM EDT [facility] - [facility] Name Value Range Interpretation Description Data Sup porting Code Source(s) Document(s ) Magnesium 1.6 mg/dL 1.6-2.6 [facility] - [Mass/volume] Community in Serum or Hospital Plasma ID Date Data Source [id number] 11/07/2018 09:41:10 PM EDT [facility] - [facility] Name Value Range Interpretation Description Data Sup porting Code Source(s) Document(s ) Leukocytes 6.6 K/uL 4.8-10.6 [facility] - [#/volume] in [facility] Blood by Hospital Automated count Erythrocytes 4.78 4.70-6.0 [facility] - [#/volume] in M/uL 0 [facility] Blood by Hospital Automated count Hemoglobin 15.5 14.0-18. [facility] - [Mass/volume] in g/dL 0 [facility] Blood [facility] Hematocrit 47.6 % 42.0-52. [facility] - [Volume 0 Community Fraction] of Hospital Blood by Automated count Erythrocyte mean 99.6 FL 81.0-94. Above high normal [facility] - corpuscular 0 Community volume [Entitic Hospital volume] by Automated count Erythrocyte mean 32.4 PG 27.0-35. [facility] - corpuscular 0 [facility] hemoglobin Hospital [Entitic mass] by Automated count [...] low normal [facility] - leukocytes in 0 [facility] Hospital Monocytes/100 1 % 2.0-12.0 Below low normal [facility] - leukocytes in [facility] Eosinophils/100 0 % 0.0-7.0 [facility] - leukocytes in [facility] Basophils/100 0 % 0.0-3.0 [facility] - leukocytes in [facility] Segmented 5.9 K/UL 1.5-6.6 [facility] - neutrophils Community [#/volume] in Hospital Blood Lymphocytes 0.6 K/UL 1.5-3.5 Below low normal [facility] - [#/volume] in [facility] Monocytes 0.1 K/UL 0.0-1.0 [facility] - [#/volume] in [facility] Eosinophils 0.0 K/UL 0.0-0.7 [facility] - [#/volume] in [facility] Basophils 0.0 K/UL 0.0-0.1 [facility] - [#/volume] in [facility] Differential [facility] - cell count [facility] Immature 1 % 0.0-2.0 [facility] - granulocytes/100 Community leukocytes in Hospital Blood by Automated count ID Date Data Source [id number] 11/12/2018 06:41:47 AM EDT [facility] Name Value Range Interpretation Description Data Sup porting Code Source(s) Document(s ) Service comment [facility] Bacteria [facility] identified in [facility] Unspecified Hospital specimen by Culture ID Date Data Source [id number] 11/07/2018 10:10:30 PM EDT [facility] Name Value Range Interpretation Description Data Sup porting Code Source(s) Document(s ) Natriuretic 41 pg/mL 0-100 [facility] peptide [facility] [Mass/volume] Hospital in Serum or Plasma ID Date Data Source [id number] 11/07/2018 10:01:44 PM EDT [facility] Name Value Range Interpretation Description Data Sup porting Code Source(s) Document(s ) aPTT in 25.4 SEC 21.0-28. [facility] - Good Platelet poor 0 [facility] plasma by [facility] Coagulation assay Therapeutic Range = 42.0-60.0 secs ID Date Data Source [id number] 11/07/2018 10:01:44 PM EDT [facility] Name Value Range Interpretation Description Data Sup porting Code Source(s) Document(s ) Prothrombin 10.3 sec 9.4-11.1 [facility] - Good time (PT) [facility] INR in 1.0 0.8-1.2 [facility] - Good Platelet poor [facility] plasma by [facility] Coagulation assay ID Date Data Source [id number] 11/07/2018 10:01:22 PM EDT [facility] Value Range Interpretation Description Data Sup porting Code Source(s) Document(s ) Lactate 2.5 0.4-2.0 Above upper panic [facility] - Good [Moles/volu MMOL/L limits [facility]] in Hospital Serum or Plasma CALLED TO AND READ BACK BYLISA POWELL [facility] 11/07/18 2201 PATRIZIA CHRISE ID Date Data Source [id number] 11/07/2018 09:54:37 PM EDT [facility] Value Range Interpretation Description Data Sup porting Code Source(s) Document(s ) Troponin 0.00-0.05 [facility] - Good I.cardiac [facility] [Mass/volume Hospital ] in Serum or Plasma [...] to 1.50 ng/mL ID Date Data Source [id number] 11/07/2018 09:54:37 PM EDT [facility] - Good [facility] Name Value Range Interpretation Description Data Sup porting Code Source(s) Document(s ) Sodium 139 136-145 [facility] - Good [Moles/volume] mmol/L [facility] in Serum or Hospital Plasma Potassium 4.1 3.5-5.1 [facility] - Good [Moles/volume] mmol/L [facility] in Serum or Hospital Plasma Chloride 95 98-107 Below low normal [facility] - Good [Moles/volume] mmol/L [facility] in Serum or Hospital Plasma Carbon 39 21-32 Above high normal [facility] - Good dioxide, total mmol/L [facility] [Moles/volume] Hospital in Serum or Plasma Anion gap in 10 10-20 [facility] - Good Serum or mmol/L [facility] Plasma Hospital Glucose 122 74-106 Above high normal [facility] - Good [Mass/volume] mg/dL [facility] in Serum or Hospital Plasma Urea nitrogen 15 mg/dL 7-18 [facility] - Good [Mass/volume] [facility] in Serum or Hospital Plasma Creatinine 0.71 0.70-1.3 [facility] - Good [Mass/volume] mg/dL 0 [facility] in Serum or Hospital Plasma Glomerular >60 [facility] - Good filtration [facility] rate/1.73 sq M Hospital predicted among blacks [Volume Rate/Area] in Serum or Plasma by Creatinine-bas ed formula (MDRD) Glomerular >60 [facility] - Good filtration [facility] rate/1.73 sq M Hospital predicted among non-blacks [Volume Rate/Area] in Serum or Plasma by Creatinine-bas ed formula (MDRD) (NOTE)Estimated GFR is calculated using the Modification of Diet in RenalDisease (MDRD) Study equation, reported for both Americans(GFRAA) and non- Americans (GFRNA), and normalized to 1.7 4a8tvkj surface area. The physician must decide which [...] 8.5-10.1 [facility] - Good Serum or Plasma [facility] ital Bilirubin.total 0.1 mg/dL 0.2-1.0 Below low normal [facility] - Good [Mass/volume] in Serum or [facility] Plasma Alanine aminotransferase 13 U/L 13-61 [facility] - Good [Enzymatic activity/volume] [facility] in Serum or Plasma Aspartate aminotransferase 15 U/L 15-37 [facility] HS - Good [Enzymatic activity/volume] [facility] in Serum or Plasma by With P-5'-P Alkaline phosphatase 72 U/L 45-117 [facility] - G ood [Enzymatic activity/volume] [facility] in Serum or Plasma Protein [Mass/volume] in 7.4 g/dL 6.4-8.2 [facility] - Good Serum or Plasma [facility] ital Albumin [Mass/volume] in 3.1 g/dL 3.5-4.7 Below low normal [facility] - Good Serum or Plasma by [facility] ospital Bromocresol purple (BCP) dye binding method Globulin [Mass/volume] in 4.3 g/dL 1.7-4.7 [facility] - Good Serum by calculation [facility] Albumin/Globulin [Mass 0.7 0.7-2.8 [facility] - Good Ratio] in Serum or Plasma [facility] ID Date Data Source [id number] 11/07/2018 09:54:37 PM EDT [facility] Name Value Range Interpretation Description Data Sup porting Code Source(s) Document(s ) Magnesium 1.6 mg/dL 1.6-2.6 [facility] - Good [Mass/volume] [facility] in Serum or Hospital Plasma ID Date Data Source [id number] 11/07/2018 09:41:10 PM EDT [facility] Name Value Range Interpretation Description Data Sup porting Code Source(s) Document(s ) Leukocytes 6.6 K/uL 4.8-10.6 [facility] - [#/volume] in Good Blood by [facility] Erythrocytes 4.78 4.70-6.0 [facility] - [#/volume] in M/uL 0 Good Blood by [facility] Automated count Hospital Hemoglobin 15.5 14.0-18. [facility] - [Mass/volume] in g/dL 0 [facility] Hematocrit 47.6 % 42.0-52. [facility] - [Volume 0 Good Fraction] of [facility] Blood by Hospital Automated count Erythrocyte mean 99.6 FL 81.0-94. Above high normal [facility] - corpuscular 0 Good volume [Entitic [facility] volume] by Hospital Automated count Erythrocyte mean 32.4 PG 27.0-35. [facility] - corpuscular 0 Good hemoglobin [facility] [Entitic mass] Hospital by Automated count Erythrocyte mean 32.6 30.7-37. [facility] - corpuscular g/dL 3 Good hemoglobin [facility] concentration Hospital [Mass/volume] by Automated count Erythrocyte 13.4 % 11.5-14. [facility] - distribution 0 Good width [Ratio] by [facility] Automated count Hospital Platelets 193 K/uL 130-400 [facility] - [#/volume] in [facility] Blood by [facility] Automated count Hospital Platelet mean 10.1 FL 9.2-11.8 [facility] - volume [Entitic Good volume] in Blood [facility] by Automated Hospital count Segmented 90 % 48.0-72. Above high normal [facility] - neutrophils/100 0 [facility] leukocytes in [facility] Lymphocytes/100 9 % 18.0-40. Below low normal [facility] - leukocytes in 0 [facility] Monocytes/100 1 % 2.0-12.0 Below low normal [facility] - leukocytes in [facility] Eosinophils/100 0 % 0.0-7.0 [facility] - leukocytes in [facility] Basophils/100 0 % 0.0-3.0 [facility] - leukocytes in [facility] Segmented 5.9 K/UL 1.5-6.6 [facility] - neutrophils Good [#/volume] in [facility] Lymphocytes 0.6 K/UL 1.5-3.5 Below low normal [facility] - [#/volume] in [facility] Monocytes 0.1 K/UL 0.0-1.0 [facility] - [#/volume] in [facility] Eosinophils 0.0 K/UL 0.0-0.7 [facility] - [#/volume] in [facility] Basophils 0.0 K/UL 0.0-0.1 [facility] - [#/volume] in [facility] Differential [facility] - cell count [facility] method - [facility] Immature 1 % 0.0-2.0 [facility] - granulocytes/100 [facility] leukocytes in [facility] Blood by Hospital Automated count ID Date Data Source [id number] 11/12/2018 06:41:49 AM EDT [facility] - [facility] Name Value Range Interpretation Description Data Sup porting Code Source(s) Document(s ) [facility] Bacteria [facility] - identified in [facility] Hospital specimen by Culture ID Date Data Source [id number] 11/12/2018 06:41:49 AM EDT [facility] Name Value Range Interpretation Description Data Sup porting Code Source(s) Document(s ) Service comment [facility] Bacteria [facility] - [facility] identified in [facility] Hospital specimen by Culture ID Date Data Source [id number] 11/07/2018 07:27:56 PM EDT [facility] duoneb and methylprednisoline 40mg IM gi diogo at Only At 1730 Name Value Range Interpretation Code Description Data Harriett rce(s) Supporting Document(s ) ID Date Data Source [id number] 11/07/2018 07:19:02 PM EDT [facility] Sent from Only for wheezing and s hortness of breath. Pulse ox 84% roomair. duoneb and IV given by medics Name Value Range Interpretation Code Description Data Harriett rce(s) Supporting Document(s ) Procedure Social History Code Duration Value Status Description Data Source(s ) Alcohol intake 05/01/2019 Current completed Current [place] 12:00:00 AM EST non-drinker of non-drinker of [employer] alcohol (finding) [employer] (finding) Smoking 05/01/2019 Never smoker completed Never smoker [place] 12:00:00 AM EST [facility] Alcohol intake 04/16/2019 Current completed Current [place] 12:00:00 AM EST non-drinker of non-drinker of [facility] alcohol alcohol (finding) [employer] (finding) Smoking 04/16/2019 Never smoker completed Never smoker [place] 12:00:00 AM EST [employer] Alcohol intake 03/31/2019 Current completed Current [place] 12:00:00 AM EST non-drinker of non-drinker of [employer] alcohol (finding) [employer] (finding) Smoking 03/31/2019 Never smoker completed Never smoker [place] 12:00:00 AM EST [employer] Alcohol intake 03/11/2019 Current completed Current [place] 12:00:00 AM EST non-drinker of non-drinker of [employer] alcohol alcohol (finding) [employer] (finding) Smoking 03/11/2019 Never smoker completed Never smoker [place] 12:00:00 AM EST [employer] Smoking 02/19/2019 Never smoker completed Never smoker [place] 12:00:00 AM EST [employer] Smoking 02/17/2019 Never smoker completed Never smoker [place] 12:00:00 AM EST [employer] Smoking 12/12/2018 Never smoker completed Never smoker [place] 12:00:00 AM EDT [employer] Smoking 11/07/2018 Never smoker completed Never smoker [place] 12:00:00 AM [employer] Alcohol intake No completed [place] [employer] Alcohol intake No completed [employer] Alcohol intake No completed [place] [facility] [employer] Alcohol intake No completed [place] [employer] Vital Signs ID Date Data Source UNK Name Value Range Interpretation Code Description Data Source(s) Oxygen saturation 97 % 97 % [facility] in Arterial blood [employer] by Pulse [employer] Respiratory rate 16 /min 16 /min [facility] [employer] Body temperature 36.78 Laya 36.78 Laya [facility] [employer] Heart rate 70 /min 70 /min [facility] [employer] Diastolic blood 86 mm[Hg] 86 mm[Hg] [facility] pressure [employer] Systolic blood 146 mm[Hg] 146 mm[Hg] [place] [facility] pressure [facility] Body mass index 21.03 kg/m2 21.03 kg/m2 [facility] (BMI) [Ratio] [email or web address] Body weight 52.164 kg 52.164 kg [facility] [employer] Body height 157.5 cm 157.5 cm [facility] [employer] Oxygen saturation 100 % 100 % [facility] [place] [facility] in Arterial blood [facility] by Pulse oximetry [employer] Respiratory rate 18 /min 18 /min [facility] [employer] Heart rate 61 /min 61 /min [facility] Diastolic blood 46 mm[Hg] 46 mm[Hg] [facility] pressure [employer] Systolic blood 108 mm[Hg] 108 mm[Hg] [place] pressure [employer] Body temperature 36.56 Laya 36.56 Laya [facility] [employer] Body mass index 18.84 kg/m2 18.84 kg/m2 [facility] (BMI) [Ratio] [email or web address] Body weight 46.72 kg 46.72 kg Bon [employer] Body height 157.5 cm 157.5 cm [employer] Oxygen saturation 99 % 99 % [facility] in Arterial blood [facility] by Pulse oxim[employer] Respiratory rate 18 /min 18 /min [facility] [employer] Body temperature 36.83 Laya 36.83 Laya [facility] [employer] Heart rate 80 /min 80 /min [facility] Diastolic blood 72 mm[Hg] 72 mm[Hg] [facility] pressure [employer] Systolic blood 122 mm[Hg] 122 mm[Hg] [place] pressure [employer] Body mass index 19.00 kg/m2 19.00 kg/m2 [facility] (BMI) [Ratio] [email or web address] Body weight 47.129 kg 47.129 kg Bon [employer] Oxygen saturation 97 % 97 % [facility] in Arterial blood [facility] by Pulse [employer]xim[employer] Inc Respiratory rate 22 /min 22 /min [facility] [employer] Body temperature 36.67 Laya 36.67 Laya [facility] [employer] [facility] [employer] Heart rate 64 /min 64 /min [facility] [employer] System [employer] Diastolic blood 71 mm[Hg] 71 mm[Hg] [place] pressure [employer] Systolic blood 122 mm[Hg] 122 mm[Hg] [place] pressure [employer] Body mass index 22.11 kg/m2 22.11 kg/m2 [facility] (BMI) [Ratio] [employer] Body weight 54.84 kg 54.84 kg [facility] Body height 157.5 cm 157.5 cm [facility] [employer] Inc Oxygen saturation 96 % 96 % [facility] in Arterial blood [facility] by Pulse oximetry System [employer] Respiratory rate 20 /min 20 /min [facility] [employer] Heart rate 81 /min 81 /min [facility] [employer] Diastolic blood 78 mm[Hg] 78 mm[Hg] [facility] pressure [employer] Systolic blood 133 mm[Hg] 133 mm[Hg] [place] pressure [employer] Body temperature 36.61 Laya 36.61 Laya [facility] [employer] Body mass index 24.69 kg/m2 24.69 kg/m2 [facility] (BMI) [Ratio] [employer] [facility] Body weight 61.236 kg 61.236 kg [facility] [employer] Body height 157.5 cm 157.5 cm [facility] [employer] Oxygen saturation 92 % 92 % [facility] in Arterial blood [facility] by Pulse [employer]xim[employer] Respiratory rate 20 /min 20 /min [facility] [employer] Body temperature 36.61 Laya 36.61 Laya [facility] [employer] Heart rate 65 /min 65 /min [facility] [employer]Prote[employer]Med[employer] Inc Diastolic blood 66 mm[Hg] 66 mm[Hg] [place] pressure [employer] Systolic blood 126 mm[Hg] 126 mm[Hg] [place] pressure [employer] Body mass index 24.69 kg/m2 24.69 kg/m2 [facility] (BMI) [Ratio] [employer] Inc Body weight 61.236 kg 61.236 kg [facility] [employer] Body height 157.5 cm 157.5 cm [facility] [employer] Oxygen saturation 93 % 93 % [facility] in Arterial blood [facility] by Pulse oximetry System [employer] Respiratory rate 20 /min 20 /min [facility] [employer] Body temperature 36.11 Laya 36.11 Laya [facility] [employer] Heart rate 91 /min 91 /min [facility] [employer] [facility] [employer] Diastolic blood 93 mm[Hg] 93 mm[Hg] [place] pressure [employer] Systolic blood 105 mm[Hg] 105 mm[Hg] [place] pressure [employer] Body mass index 22.95 kg/m2 22.95 kg/m2 [facility] (BMI) [Ratio] [email or web address] [facility] Body weight 56.926 kg 56.926 kg [facility] [employer] Inc Body height 157.5 cm 157.5 cm [employer] Inc Oxygen saturation 96 % 96 % [facility] in Arterial blood [employer] by Pulse [employer] Respiratory rate 20 /min 20 /min [facility] [employer] Body temperature 36.11 Laya 36.11 Laya [facility] [employer] Heart rate 82 /min 82 /min [employer] Diastolic blood 53 mm[Hg] 53 mm[Hg] [place] pressure [employer] Systolic blood 98 mm[Hg] 98 mm[Hg] [place] pressure [employer] Body mass index 20.91 kg/m2 20.91 kg/m2 [facility] (BMI) [Ratio] [employer] [facility] Body weight 51.846 kg 51.846 kg [facility] [employer] Body height 157.5 cm 157.5 cm [employer] Inc Oxygen saturation 91 % 91 % [facility] in Arterial blood [employer] by Pulse [employer] Respiratory rate 20 /min 20 /min [facility] [employer] Body temperature 36.22 Laya 36.22 Laya [facility] [employer] Heart rate 81 /min 81 /min [employer] Inc Diastolic blood 58 mm[Hg] 58 mm[Hg] [place] pressure [employer] Systolic blood 109 mm[Hg] 109 mm[Hg] [place] pressure [employer] Body mass index 21.47 kg/m2 21.47 kg/m2 [facility] (BMI) [Ratio] [email or web address] Inc Body weight 53.252 kg 53.252 kg [facility] [employer] Inc Body height 157.5 cm 157.5 cm [facility] [employer] Inc Patient Treatment Plan of Care Planned Activity Planned Date Details Description Data Source (s) Prednisone 10 MG Oral Tablet 05/08/2019 [facility] 12:00:00 AM [employer] 1 ML Lorazepam 2 MG/ML 05/07/2019 [facility] Injection 10:00:00 PM EST Post.Bid.Shipe m Inc potassium phosphate 155 MG / 05/07/2019 [facility] Sodium Phosphate, Dibasic 852 12:00:00 AM [employer] System [employer] MG / Sodium Phosphate, Monobasic 130 MG Oral Tablet vancomycin 50 mg/mL oral 05/05/2019 [facility] solution (compounded) 12:00:00 AM EST [facility] Metoprolol Tartrate 25 MG 05/05/2019 [facility] Oral Tablet 12:00:00 AM EST Post.Bid.Sh[employer] Inc Methylprednisolone 40 MG/ML 05/05/2019 [facility] Injectable Solution 12:00:00 AM EST [employer] meropenem 500 mg IVPB 05/05/2019 [facility] 12:00:00 AM [employer] Metoprolol Tartrate 1 MG/ML 05/02/2019 [facility] Injectable Solution 03:02:58 PM EST [employer] ondansetron (ZOFRAN) 04/25/2019 [facility] injection 4 mg 06:51:01 PM EST [employer] tem Inc sodium chloride (NS) flush 04/25/2019 [facility] 5-40 mL 06:43:31 PM [employer] omeprazole (PRILOSEC) 2 mg/mL 04/06/2019 [facility] susp 2 mg/mL oral suspension 12:00:00 AM [employer] (compounded) Acetaminophen 32 MG/ML Oral 03/25/2019 [facility] Solution 07:17:04 AM [employer] lamotrigine 25 MG Chewable 03/18/2019 [facility] Tablet 12:00:00 AM [employer] Acetaminophen 32 MG/ML Oral 03/17/2019 [facility] Solution 12:00:00 AM [employer] multivitamin (MULTI-DELYN, 03/17/2019 [facility] WELLESSE) liqd 12:00:00 AM [employer] Inc 1 ML heparin sodium, porcine 03/17/2019 [facility] 5000 UNT/ML Injection 12:00:00 AM EST [employer] System Inc Amoxicillin 875 MG / 03/17/2019 [facility] Clavulanate 125 MG Oral 12:00:00 AM EST [employer] System Inc Tablet Prednisone 1 MG/ML Oral 03/17/2019 [facility] Solution 12:00:00 AM [employer] Acetaminophen 32 MG/ML Oral 03/11/2019 [facility] Solution 10:42:33 AM [employer] sodium chloride (NS) flush 03/11/2019 [facility] 5-10 mL 03:55:00 AM [employer] pantoprazole 40 MG Oral 02/13/2019 [facility] Granules 12:00:00 AM EDT Post.Bid.[employer] Prednisone 10 MG Oral Tablet 02/12/2019 [facility] 12:00:00 AM EDT Post.Bid.[employer] Inc Prednisone 10 MG Oral Tablet 02/12/2019 [facility] 12:00:00 AM EDT Post.Bid.[employer] 1 ML heparin sodium, porcine 02/12/2019 [facility] 5000 UNT/ML Injection 12:00:00 AM EDT [employer] System Inc cefepime 2 gram 2 g IVPB 02/12/2019 [facility] 12:00:00 AM EDT Post.Bid.[employer] Inc 1 ML heparin sodium, porcine 01/25/2019 [facility] 5000 UNT/ML Injection 12:00:00 AM EDT [employer] System Inc cholestyramine-aspartame 01/24/2019 [facility] (QUESTRAN LIGHT) 4 gram 12:00:00 AM EDT [employer] System Inc packet influenza vaccine 2019-20, 65 [...] MG/ML / 12/30/2018 [facility] Ipratropium [place] 0.167 12:00:00 AM EDT [facility] MG/ML Inhalant Solution cinacalcet 30 MG Oral Tablet 12/30/2018 [facility] 12:00:00 AM EDT Health Syste m Inc Clorazepate Dipotassium 3.75 12/30/2018 [facility] MG Oral Tablet 12:00:00 AM EDT [facility] Inc lamotrigine 25 MG Oral Tablet 12/30/2018 [facility] 12:00:00 AM EDT Health Syste m Inc Bacitracin 0.5 UNT/MG Topical 12/30/2018 [facility] Ointment 12:00:00 AM EDT Health Syste m Inc Albuterol 0.833 MG/ML / 12/30/2018 [facility] Ipratropium [place] 0.167 12:00:00 AM EDT Health System Inc [...] Inc Budesonide 0.25 MG/ML 11/27/2018 [facility] Inhalant Solution 12:00:00 AM [facility] System Inc Zinc Oxide 0.2 MG/MG Topical Bon [facility] Ointment [facility] Acetylcysteine 100 MG/ML Bon [facility] Inhalant Solution [facility] Inc Valproic Acid 50 MG/ML Oral Bon [facility] Solution [facility] omeprazole (PRILOSEC) 2 mg/mL Bon [facility] susp 2 mg/mL oral suspension [facility] Inc (compounded) Prednisone 1 MG/ML Oral Bon [facility] Solution [facility] nc silver sulfadiazine 10 MG/ML Bon [facility] Topical Cream [facility] Inc Zinc Oxide 100 MG/ML Topical [facility] Cream [facility] nc multivitamin (MULTI-DELYN, B on [facility] WELLESS) liqd [facility] Valproic Acid 50 MG/ML Oral Bon [facility] Solution [facility] System [facility] nc Acetaminophen 325 MG Rectal Bon [facility] Suppository [facility] nc valacyclovir 1000 MG Oral Jeff n [facility] Tablet [facility] Albuterol 0.833 MG/ML / Bon [facility] Ipratropium [place] 0.167 alth System Inc MG/ML Inhalant Solution Clorazepate Dipotassium 3.75 [facility] MG Oral Tablet [facility] multivitamin (ONE A DAY) Bon [facility] tablet [facility] cinacalcet 30 MG Oral Tablet [facility] System I nc lamotrigine 25 MG Oral Tablet [facility] Clorazepate Dipotassium 3.75 [facility] MG Oral Tablet [facility] POLLEN EXTRACTS (PROSTAT PO) [facility] chlorhexidine gluconate 40 B on [facility] MG/ML Medicated Liquid Soap [facility] Loratadine 10 MG Oral Tablet [facility] System I nc OTHER [facility] nc Omeprazole 20 MG Delayed [facility] Capsule [facility] Albuterol 0.833 MG/ML / Bon [facility] Ipratropium [place] 0.167 He alth System Inc MG/ML Inhalant Solution Budesonide 0.25 MG/ML Sarbjit minaya [facility] Inhalant Solution [facility] Inc
[2020-01-09] MEDS ORDERED: MEROPENEM 1 GM in DEXTROSE 5%-WATER 100 ML IVPB ONE (04:59)
[2020-01-09] MEDS ORDERED: MEROPENEM 1 GM VIAL (RESTRICTED TO ID) IVPB ONE (05:08)
[2020-01-09 07:02] LABS: EPI CELLS 1 /uL (0-25.1); HYALINE CASTS 1 /uL (0-3.1); URINE APPEARANCE CLOUDY; URINE BACTERIA 18 /uL (0-1359); URINE BILIRUBIN NEGATIVE (NEGATIVE); URINE COLOR DK YELLOW; URINE GLUCOSE (UA) NEGATIVE (NEGATIVE); URINE KETONE TRACE (NEGATIVE); URINE LEUK ESTERASE 2+ (NEGATIVE); URINE NITRITE NEGATIVE (NEGATIVE); URINE PROTEIN 1+ (NEGATIVE); URINE RBC 14 /uL (0-23.9); URINE UROBILINOGEN 0.2 mg/dL (0.2-1.0); URINE WBC 1383 /uL (0-25.8)
[2020-01-09] MEDS ORDERED: DEXTROSE 50%-WATER 25 GM/50 ML DISP.SYRIN ONE (07:42)
[2020-01-09 08:57] LABS: YEAST MODERATE (NEGATIVE)
[2020-01-09] MEDS: COLLAGENASE CLOSTRIDIUM HIST. 30 GRAMS TUBE TP SCH (10:02)
[2020-01-09] MEDS: DEXTROSE 5%-0.45% SALINE 1,000 ML IV SCH (11:26)
[2020-01-09] MEDS ORDERED: DEXTROSE 10%-WATER - 1,000 ML IV SCH (11:30)
--- NOTE | 2020-01-09 12:12 | PN ---
Progress Note (short form) - Note Progress Note: PULMONARY CONSULTATION DICTATED 01/09/20 IMP CHRONIC RESPIRATORY FAILURE OPACIFICATION R HEMITHORAX LIKELY ATELECTASIS,? EFFUSION CEREBRAL PASLY PARKINSONS COPD DISLODGED J-TUBE ANEMIA PLAN CONTINUE VENT SUPPORT ON AC MODE FREQUENT SUCTIONING INHALED BRONCHODILATORS F/U CHEST X-RAYS IR EVALUATION FOR INSERTION OF J-TUBE MONITOR LYTES,RENAL FUNCTION,H+H CHEST CT IF NO IMPROVEMENT ON F/U CHEST X-RAY DR HERNANDEZ Problem List - Problems (1) Anemia Code(s): D64.9 - ANEMIA, UNSPECIFIED Qualifiers: (2) Atelectasis Code(s): J98.11 - ATELECTASIS (3) COPD (chronic obstructive pulmonary disease) Code(s): J44.9 - CHRONIC OBSTRUCTIVE PULMONARY DISEASE, UNSPECIFIED Qualifiers: (4) Cerebral palsy Code(s): G80.9 - CEREBRAL PALSY, UNSPECIFIED Qualifiers: (5) Chronic respiratory failure Code(s): J96.10 - CHRONIC RESPIRATORY FAILURE, UNSP W HYPOXIA OR HYPERCAPNIA Qualifiers: Respiratory failure complication: hypoxia and hypercapnia Qualified Code(s): J96.11 - Chronic respiratory failure with hypoxia; J96.12 - Chronic respiratory failure with hypercapnia (6) Functional quadriplegia Code(s): R53.2 - FUNCTIONAL QUADRIPLEGIA (7) G tube feedings Code(s): Z93.1 - GASTROSTOMY STATUS (8) Malfunctioning jejunostomy tube Code(s): K94.13 - ENTEROSTOMY MALFUNCTION (9) Parkinson disease Code(s): G20 - PARKINSON'S DISEASE (10) Severe malnutrition Code(s): E43 - UNSPECIFIED SEVERE PROTEIN-CALORIE MALNUTRITION (11) Dislodged jejunostomy tube Code(s): T85.528A - DISPLACEMENT OF GASTROINTESTINAL PROSTH DEV/GRFT, INIT
[2020-01-09] MEDS: NYSTATIN 100,000 UNIT/GM TOPICAL CREAM 15 GM TUBE TP SCH (13:14)
--- NOTE | 2020-01-09 14:09 | PN ---
Progress Note, Physician Chief Complaint: G tube Dislodged History of Present Illness: Previous notes and events reviewed awake and alert non-verbal mechanically ventilated - Current Medication List Current Medications: Active Medications Collagenase (Santyl -) 1 applic TP DAILY REPLACED BY [facility]; Protocol Last Admin: 01/09/20 10:02 Dose: 1 applic Documented by: Dextrose/Sodium Chloride (D5-1/2ns -) 1,000 mls @ 42 mls/hr IV ASDIR ELOINA Last Admin: 01/09/20 11:26 Dose: 42 mls/hr Documented by: Nystatin (Mycostatin Cream -) 1 applic TP BID ELOINA Last Admin: 01/09/20 13:14 Dose: 1 applic Documented by: - Objective Vital Signs: Vital Signs Temperature 98.5 F 01/09/20 11:08 Pulse Rate 95 H 01/09/20 11:08 Respiratory Rate 15 01/09/20 14:06 Blood Pressure 128/70 01/09/20 11:08 O2 Sat by Pulse Oximetry (%) 96 01/09/20 14:06 Constitutional: Yes: No Distress, Cachectic, Other (contracted) Eyes: Yes: Conjunctiva Clear Neck: Yes: Other (trach) Cardiovascular: Yes: Regular Rate and Rhythm Respiratory: Yes: Diminished, Mechanically Ventilated Gastrointestinal: Yes: Normal Bowel Sounds, Soft, Other (stoma noted, no drainage) Genitourinary: Yes: [place] Present Musculoskeletal: Yes: Other (contracted) Extremities: Yes: Other (lower extremity contracture) Edema: Yes Edema: LUE: 3+ (LUE), LLE: 4+ (pedal), RLE: 4+ (pedal) Wound/Incision: Yes: Other (multiple wounds) Neurological: Yes: Alert, Pre-Existing Deficit, Other Psychiatric: Yes: Alert Labs: CBC, BMP 01/09/20 01:36 01/09/20 01:36 Problem List - Problems (1) Dislodged jejunostomy tube Assessment/Plan: IR consult placed IV fluid for hydration Code(s): T85.528A - DISPLACEMENT OF GASTROINTESTINAL PROSTH DEV/GRFT, INIT (2) Anemia Assessment/Plan: Hg 8.7 monitor Hg daily transfuse for Hg <7.0 Code(s): D64.9 - ANEMIA, UNSPECIFIED Qualifiers: Anemia type: iron deficiency (3) COPD (chronic obstructive pulmonary disease) Assessment/Plan[facility] SpO2 >90% Code(s): J44.9 - CHRONIC OBSTRUCTIVE PULMONARY DISEASE, UNSPECIFIED Qualifiers: (4) Cerebral palsy Assessment/Plan: Fall precaution turn q2h Aspiration precaution Code(s): G80.9 - CEREBRAL PALSY, UNSPECIFIED Qualifiers: (5) Functional quadriplegia Assessment/Plan: Fall precaution turn q2h Code(s): R53.2 - FUNCTIONAL QUADRIPLEGIA (6) Parkinson disease Assessment/Plan: medication o hold while G tube in place Code(s): G20 - PARKINSON'S DISEASE (7) Seizure disorder Assessment/Plan: seizure precaution Code(s): G40.909 - EPILEPSY, UNSP, NOT INTRACTABLE, WITHOUT STATUS EPILEPTICUS (8) Pneumonia Assessment/Plan: ID consult received Meropeem in ER Leukocytosis WBC 13.3 CXR shows major opacification of the right hemithorax indicative of fluid with possible infiltrate or atelectasis BC pending UC pending Code(s): J18.9 - PNEUMONIA, UNSPECIFIED ORGANISM (9) Pressure ulcer of back Assessment/Plan: turn q2h wound care Code(s): L89.109 - PRESSURE ULCER OF UNSP PART OF BACK, UNSPECIFIED STAGE Qualifiers: Pressure injury stage: stage 3 Qualified Code(s): L89.103 - Pressure ulcer of unspecified part of back, stage 3 (10) Pressure ulcer of hip Assessment/Plan: turn q2h wound care Code(s): L89.209 - PRESSURE ULCER OF UNSPECIFIED HIP, UNSPECIFIED STAGE (11) Pressure ulcer, upper back Assessment/Plan: turn q2h wound care Code(s): L89.109 - PRESSURE ULCER OF UNSP PART OF BACK, UNSPECIFIED STAGE (12) Chronic respiratory failure Assessment/Plan: Pulmonary consult mechanically ventilated keep SpO2 >90% Code(s): J96.10 - CHRONIC RESPIRATORY FAILURE, UNSP W HYPOXIA OR HYPERCAPNIA Qualifiers: Respiratory failure complication: hypoxia and hypercapnia Qualified Code(s): J96.11 - Chronic respiratory failure with hypoxia; J96.12 - Chronic respiratory failure with hypercapnia Assessment/Plan see problem list
[2020-01-09] MEDS ORDERED: ACETAMINOPHEN 1000 MG/100 ML VIAL (NON FORMULARY) IVPB PRN (15:51)
--- NOTE | 2020-01-09 16:10 | EKG ---
Test Reason : Blood Pressure : / mmHG Vent. Rate : 102 BPM Atrial Rate : 102 BPM P-R Int : 150 ms QRS Dur : 078 ms QT Int : 344 ms P-R-T Axes : 050 037 042 degrees QTc Int : 448 ms SINUS TACHYCARDIA OTHERWISE NORMAL ECG WHEN COMPARED WITH ECG OF 23-DEC-2019 08:26, NO SIGNIFICANT CHANGE WAS FOUND Confirmed by MD Paige Daniel ([id number]) on 01/09/2020 4:10:08 PM Referred By: Confirmed By:Vladimir Paige MD
[2020-01-10] MEDS: ACETAMINOPHEN 1000 MG/100 ML VIAL (NON FORMULARY) IVPB PRN ×2 (01:36→17:06)
[2020-01-10] MEDS: NYSTATIN 100,000 UNIT/GM TOPICAL CREAM 15 GM TUBE TP SCH ×3 (06:04→17:52)
[2020-01-10] MEDS: DEXTROSE 5%-0.45% SALINE 1,000 ML IV SCH ×3 (06:05→17:53)
[2020-01-10] MEDS ORDERED: ALBUTEROL SO4 HFA INHALER IH SCH (08:00)
[2020-01-10 09:23] LABS: HEMATOCRIT 24.8 % (35.4-49); MCH 29.2 pg (25.7-33.7); MCHC 32.2 g/dl (32.0-35.9); MEAN CELL VOLUME 90.8 fl (80-96); MEAN PLT VOLUME 6.5 fl (7.5-11.1); PLATELET COUNT 777 K/MM3 (134-434); RBC 2.73 M/mm3 (4.00-5.60); WHITE BLOOD COUNT 10.6 K/mm3 (4.0-10.0)
[2020-01-10 09:58] LABS: POTASSIUM 3.7 mmol/L (3.5-5.1)
[2020-01-10 10:07] LABS: BILIRUBIN,TOTAL 0.5 mg/dL (0.2-1); BLOOD UREA NITROGEN 14.4 mg/dL (7-18); CALCIUM 8.5 mg/dL (8.5-10.1); CREATININE 0.3 mg/dL (0.55-1.3); TOT PROT 5.6 g/dl (6.4-8.2)
--- NOTE | 2020-01-10 11:16 | PN ---
Progress Note (short form) - Note Progress Note: PULMONARY Vented, poorly responsive. Low grade fever. Vital Signs Period Temp Pulse Resp BP Sys/Gomez Pulse Ox Last 24 Hr 99.9 F-100.7 F 100-104 14-22 101-111/47-67 94-100 Gen: vented, poorly responsive Heart: RRR Lung: scattered rhonchi Abd: soft, nontender Ext: no edema CBC, BMP 01/10/20 08:59 01/10/20 08:59 Active Medications Acetaminophen (Ofirmev Injection -) 650 mg IVPB Q6H PRN PRN Reason: PAIN LEVEL 4 - 6 Stop: 01/11/20 01:27 Last Admin: 01/10/20 01:36 Dose: 650 mg Documented by: Albuterol Sulfate (Ventolin 0.083% Nebulizer Soln -) 1 amp NEB RQID ELOINA Albuterol Sulfate (Ventolin Hfa Inhaler -) 1 puff IH RQID ELOINA Collagenase (Santyl -) 1 applic TP DAILY [facility]; Protocol Last Admin: 01/09/20 10:02 Dose: 1 applic Documented by: Dextrose/Sodium Chloride (D5-1/2ns -) 1,000 mls @ 42 mls/hr IV ASDIR ELOINA Last Admin: 01/10/20 06:05 Dose: 42 mls/hr Documented by: Nystatin (Mycostatin Cream -) 1 applic TP BID ELOINA Last Admin: 01/10/20 06:04 Dose: Not Given Documented by: A/P Chronic Respiratory Failure Suspect Right Atelectasis from mucous plugging COPD Cerebral Palsy Parkinsons Anemia - chest PT - inhaled bronchodilators with mucolytics once COVID19 swab negative - position right side down - titrate Fio2 to keep SpO2 >90% - DVT prophylaxis
--- NOTE | 2020-01-10 13:51 | PN ---
Progress Note, Physician Chief Complaint: G tube Dislodged History of Present Illness: Previous notes and events reviewed less alert compared to yesterday non-verbal mechanically ventilated WBC showing downtrend 10.6 UC positive febrile - Current Medication List Current Medications: Active Medications Acetaminophen (Ofirmev Injection -) 650 mg IVPB Q6H PRN PRN Reason: PAIN LEVEL 4 - 6 Stop: 01/11/20 01:27 Last Admin: 01/10/20 01:36 Dose: 650 mg Documented by: Albuterol Sulfate (Ventolin 0.083% Nebulizer Soln -) 1 amp NEB RQID ELOINA Albuterol Sulfate (Ventolin Hfa Inhaler -) 1 puff IH RQID ELOINA Collagenase (Santyl -) 1 applic TP DAILY ELOINA; Protocol Last Admin: 01/09/20 10:02 Dose: 1 applic Documented by: Dextrose/Sodium Chloride (D5-1/2ns -) 1,000 mls @ 42 mls/hr IV ASDIR ELOINA Last Admin: 01/10/20 06:05 Dose: 42 mls/hr Documented by: Nystatin (Mycostatin Cream -) 1 applic TP BID ELOINA Last Admin: 01/10/20 06:04 Dose: Not Given Documented by: - Objective Vital Signs: Vital Signs Temperature 99.9 F H 01/10/20 02:00 Pulse Rate 104 H 01/10/20 02:00 Respiratory Rate 22 H 01/10/20 12:05 Blood Pressure 101/47 L 01/10/20 02:00 O2 Sat by Pulse Oximetry (%) 99 01/10/20 09:09 Constitutional: Yes: No Distress, Cachectic Eyes: Yes: Conjunctiva Clear HENT: Yes: Atraumatic Neck: Yes: Other (trach) Cardiovascular: Yes: Tachycardia Respiratory: Yes: Mechanically Ventilated, Rhonchi, Tachypnea Gastrointestinal: Yes: Normal Bowel Sounds, Soft Genitourinary: Yes: [place] Present Musculoskeletal: Yes: Other (contracted) Edema: Yes Edema: LLE: 4+ (pedal), RLE: 4+ (pedal) Wound/Incision: Yes: Dressing Dry and Intact Neurological: Yes: Alert, Pre-Existing Deficit Psychiatric: Yes: Alert Labs: CBC, BMP 01/10/20 08:59 01/10/20 08:59 Microbiology 01/09/20 06:31 Urine - Urine [place] Urine Culture - Final Yeast Like Organism 01/09/20 06:30 Blood - Peripheral Venous Blood Culture - Preliminary NO GROWTH OBTAINED AFTER 24 HOURS, INCUBATION TO CONTINUE FOR 4 DAYS. 01/09/20 06:30 Blood - Peripheral Venous Blood Culture - Preliminary NO GROWTH OBTAINED AFTER 24 HOURS, INCUBATION TO CONTINUE FOR 4 DAYS. Problem List - Problems (1) Dislodged jejunostomy tube Assessment/Plan: IR consult IV fluid for hydration Code(s): T85.528A - DISPLACEMENT OF GASTROINTESTINAL PROSTH DEV/GRFT, INIT (2) Anemia Assessment/Plan: Hg 8.0 monitor Hg daily transfuse for Hg <7.0 to avoid overload Stool OB TIBC, Iron, Ferritin level Code(s): D64.9 - ANEMIA, UNSPECIFIED Qualifiers: Anemia type: iron deficiency (3) COPD (chronic obstructive pulmonary disease) Assessment/Plan: Pulmonary consult Mechaically ventilated keep SpO2 >90% Albuterol neb CXR 01/08/20 shows major opacification of the right hemithorax indicative of fluid with possible infiltrate/atelectasis repeat CXR 01/10/20 shows right lung appears well aerated and opacification has cleared, most likely represents atelectasis, some scarring or atelectasis on the left Code(s): J44.9 - CHRONIC OBSTRUCTIVE PULMONARY DISEASE, UNSPECIFIED Qualifiers: (4) Cerebral palsy Assessment/Plan: Fall precaution turn q2h Aspiration precaution Code(s): G80.9 - CEREBRAL PALSY, UNSPECIFIED Qualifiers: (5) Functional quadriplegia Assessment/Plan: Fall precaution turn q2h Code(s): R53.2 - FUNCTIONAL QUADRIPLEGIA (6) Parkinson disease Assessment/Plan: medication on hold while G tube in place safety precaution Code(s): G20 - PARKINSON'S DISEASE (7) Seizure disorder Assessment/Plan: seizure precaution Code(s): G40.909 - EPILEPSY, UNSP, NOT INTRACTABLE, WITHOUT STATUS EPILEPTICUS (8) Pneumonia Assessment/Plan: ID on board-pending recommendation febrile received Meropeem in ER Leukocytosis WBC 10.6 CXR shows major opacification of the right hemithorax indicative of fluid with possible infiltrate or atelectasis BC neg UC positive Covid-19 PCR neg Code(s): J18.9 - PNEUMONIA, UNSPECIFIED ORGANISM (9) Pressure ulcer of back Assessment/Plan: turn q2h wound care Plastics Consult Code(s): L89.109 - PRESSURE ULCER OF UNSP PART OF BACK, UNSPECIFIED STAGE Qualifiers: Pressure injury stage: stage 3 Qualified Code(s): L89.103 - Pressure ulcer of unspecified part of back, stage 3 (10) Pressure ulcer of hip Assessment/Plan: turn q2h wound care Plastics Consult Code(s): L89.209 - PRESSURE ULCER OF UNSPECIFIED HIP, UNSPECIFIED STAGE (11) Pressure ulcer, upper back Assessment/Plan: turn q2h wound care Plastics Consult Code(s): L89.109 - PRESSURE ULCER OF UNSP PART OF BACK, UNSPECIFIED STAGE (12) Chronic respiratory failure Assessment/Plan: Pulmonary consult mechanically ventilated keep SpO2 >90% Albuterol neb CXR 01/08/20 shows major opacification of the right hemithorax indicative of fluid with possible infiltrate/atelectasis repeat CXR 01/10/20 shows right lung appears well aerated and opacification has cleared, most likely represents atelectasis, some scarring or atelectasis on the left Covid-19 PCR neg Code(s): J96.10 - CHRONIC RESPIRATORY FAILURE, UNSP W HYPOXIA OR HYPERCAPNIA Qualifiers: Respiratory failure complication: hypoxia and hypercapnia Qualified Code(s): J96.11 - Chronic respiratory failure with hypoxia; J96.12 - Chronic respiratory failure with hypercapnia Assessment/Plan see problem list SCDs
[2020-01-10] MEDS ORDERED: MEROPENEM 1 GM in DEXTROSE 5%-WATER 100 ML IVPB SCH (15:00)
[2020-01-10] MEDS ORDERED: MEROPENEM 1 GM VIAL (RESTRICTED TO ID) IVPB ONE ×2 (15:49→21:48)
[2020-01-10] MEDS ORDERED: DEXTROSE 5%-WATER 100 ML IVPB ONE ×2 (15:49→21:48)
[2020-01-10] MEDS: MEROPENEM 1 GM in DEXTROSE 5%-WATER 100 ML IVPB SCH ×2 (16:01→21:53)
[2020-01-10] MEDS: ALBUTEROL SO4 0.083% IH SOL 2.5 MG/3 ML VIAL.NEB. NEB SCH ×2 (16:04→20:14)
--- NOTE | 2020-01-10 16:30 | CONS ---
PULMONARY CONSULTATION DATE OF CONSULTATION: 01/09/2020 REFERRING PHYSICIAN: Mindy Badillo MD HISTORY: Patient is a 69-year-old male known to me from previous hospitalizations with a past medical history of chronic respiratory failure, status post tracheostomy, ventilator dependent on assist control mode, cerebral palsy, intellectual disabilities, Parkinson's, COPD, J-tube feeds, G-tube for decompression, recently admitted to [facility] secondary to pneumonia with sepsis. At the time he was also noted to have Clostridium difficile, was transferred to [facility] where he presents back to the [facility] ER on January 07 with a dislodged J-tube. Patient on admission was also noted on chest x-ray to have almost complete opacification of the right hemithorax which is new from previous admission. PAST MEDICAL HISTORY: Again, includes end-stage chronic respiratory failure, status post tracheostomy, ventilator dependent on assist control mode, COPD, Parkinson's, cerebral palsy, intellectual disabilities, J-tube as well as G-tube and recurrent pneumonias and decubitus ulcers, functional quadriplegia, seizures. REVIEW OF SYSTEMS: Unable to be obtained. MEDICATIONS: Include albuterol, meropenem x1, collagenase and nystatin. PHYSICAL EXAMINATION: General: Patient is a chronically ill-appearing male, cachectic, poorly responsive on ventilator support. Vital Signs: Temp is 98.5, blood pressure 101/68 and respiratory rate is 21, O2 saturation 98%. HEENT: Normocephalic, atraumatic. Neck: Supple. Tracheostomy is patent. Heart: Regular with S1, S2. Chest: Diminished breath sounds on the right, few scattered rhonchi. Abdomen: Soft. Bowel sounds are . Extremities: Bilateral contractures. LABORATORIES: WBC 13.3, hemoglobin 8.7, hematocrit 26.7 with a platelet count of 864,000. BUN 19, creatinine 0.2. Chest x-ray: Almost complete opacification right hemithorax consistent with either fluid and/or atelectasis. IMPRESSION: 1. Chronic respiratory failure. 2. Opacification right hemithorax, likely atelectasis, rule out possible effusion. 3. Cerebral palsy. 4. Dislodged jejunostomy tube. 5. Advanced Parkinson's. 6. Anemia. 7. Chronic obstructive pulmonary disease. PLAN: Continue ventilator support on assist control mode. Continue frequent suctioning and obtain followup chest x-rays. If no improvement in chest x-ray, will get a CT scan of the chest. IR evaluation for reinsertion of J-tube. Monitor electrolytes, renal function, hemoglobin and hematocrit. Continue inhaled bronchodilators. IZAIAH HERNANDEZ M.D. [id number]
[2020-01-10] MEDS: COLLAGENASE CLOSTRIDIUM HIST. 30 GRAMS TUBE TP SCH (17:52)
--- NOTE | 2020-01-10 22:00 | PN ---
Progress Note (short form) - Note Progress Note: ID CONSULT DICTATED
--- NOTE | 2020-01-10 23:32 | PN ---
Progress Note, Physician History of Present Illness: 69 Year old Male : Functional Quadriplegic readmitted for deterioration of Multiple decubitii Consult asked by Dr Rosales regarding Management /treatment of Mulitple GradeIV decubitii.including a Unstaged Left foot wound Patient is non Verbal, in bed contracted limbs. Unable to trun side to side. Decubitii evaluated : Most decubiti are fibrinous , foot Left Lateral border: Full-thickness ,with necrotic tissue. - Current Medication List Current Medications: Active Medications Acetaminophen (Ofirmev Injection -) 650 mg IVPB Q6H PRN PRN Reason: PAIN LEVEL 4 - 6 Stop: 01/11/20 01:27 Last Admin: 01/10/20 17:06 Dose: 650 mg Documented by: Albuterol Sulfate (Ventolin 0.083% Nebulizer Soln -) 1 amp NEB RQID [facility] Last Admin: 01/10/20 20:14 Dose: 1 amp Documented by: Collagenase (Santyl -) 1 applic TP DAILY [facility]; Protocol Last Admin: 01/10/20 17:52 Dose: 1 applic Documented by: Meropenem 1 gm/ Dextrose 100 mls @ 200 mls/hr IVPB Q8H-IV [facility] Last Admin: 01/10/20 21:53 Dose: 200 mls/hr Documented by: Dextrose/Sodium Chloride (D5-1/2ns -) 1,000 mls @ 30 mls/hr IV ASDIR [facility] Last Admin: 01/10/20 17:53 Dose: Not Given Documented by: Nystatin (Mycostatin Cream -) 1 applic TP BID [facility] Last Admin: 01/10/20 17:00 Dose: Not Given Documented by: - Objective Vital Signs: Vital Signs Temperature 101.2 F H 01/10/20 18:00 Pulse Rate 98 H 01/10/20 18:00 Respiratory Rate 18 01/10/20 20:13 Blood Pressure 99/52 L 01/10/20 18:00 O2 Sat by Pulse Oximetry (%) 99 01/10/20 20:13 Labs: CBC, BMP 01/10/20 08:59 01/10/20 08:59
[2020-01-11] MEDS: NYSTATIN 100,000 UNIT/GM TOPICAL CREAM 15 GM TUBE TP SCH ×2 (00:52→10:28)
[2020-01-11] MEDS ORDERED: DEXTROSE 5%-WATER 100 ML IVPB ONE ×3 (01:14→17:10)
[2020-01-11] MEDS ORDERED: MEROPENEM 1 GM VIAL (RESTRICTED TO ID) IVPB ONE ×3 (01:14→17:10)
[2020-01-11] MEDS: MEROPENEM 1 GM in DEXTROSE 5%-WATER 100 ML IVPB SCH ×3 (02:32→17:37)
[2020-01-11] MEDS: DEXTROSE 5%-0.45% SALINE 1,000 ML IV SCH ×2 (06:55→17:38)
[2020-01-11] MEDS: ALBUTEROL SO4 0.083% IH SOL 2.5 MG/3 ML VIAL.NEB. NEB SCH ×3 (08:08→16:54)
[2020-01-11 09:59] LABS: HEMATOCRIT 25.3 % (35.4-49); HEMOGLOBIN 8.2 GM/dL (11.7-16.9); MCH 29.7 pg (25.7-33.7); MCHC 32.3 g/dl (32.0-35.9); MEAN CELL VOLUME 92.1 fl (80-96); MEAN PLT VOLUME 7.5 fl (7.5-11.1); PLATELET COUNT 655 K/MM3 (134-434); RBC 2.75 M/mm3 (4.00-5.60); RDW 16.8 % (11.9-15.9)
[2020-01-11 10:11] LABS: ALBUMIN 0.9 g/dl (3.4-5.0); BILIRUBIN,TOTAL 0.6 mg/dL (0.2-1); BLOOD UREA NITROGEN 12.9 mg/dL (7-18); CALCIUM 8.5 mg/dL (8.5-10.1); POTASSIUM 3.6 mmol/L (3.5-5.1); TOT PROT 5.8 g/dl (6.4-8.2)
[2020-01-11 10:15] LABS: CREATININE 0.2 mg/dL (0.55-1.3)
[2020-01-11] MEDS: COLLAGENASE CLOSTRIDIUM HIST. 30 GRAMS TUBE TP SCH ×2 (10:28→12:49)
--- NOTE | 2020-01-11 10:56 | PN ---
Progress Note, Physician History of Present Illness: This is a 69 y/o male from [facility] with a significant PMHx of Cerebral Palsy, Intellectual Disabilities, Parkinson's Disease, Chronic Respiratory Failure s/p trach-vent dependent, COPD, J-tube (for feeds), and G tube (for decompression), recently admitted with PNA, Sepsis and found to have C. diff + VRE. Presents to the ED via ambulance for J-tube displacement. Pt also has multiple stage 4 + unstageable decubetii being locally treated upon discharge. Started on Meropenem due to low grade fever + leukocytosis. - Current Medication List Current Medications: Active Medications Albuterol Sulfate (Ventolin 0.083% Nebulizer Soln -) 1 amp NEB RQID [facility] Last Admin: 01/11/20 08:08 Dose: 1 amp Documented by: Collagenase (Santyl -) 1 applic TP DAILY [facility]; Protocol Last Admin: 01/11/20 10:28 Dose: 1 applic Documented by: Meropenem 1 gm/ Dextrose 100 mls @ 200 mls/hr IVPB Q8H-IV [facility] Last Admin: 01/11/20 10:28 Dose: 200 mls/hr Documented by: Dextrose/Sodium Chloride (D5-1/2ns -) 1,000 mls @ 30 mls/hr IV ASDIR [facility] Last Admin: 01/11/20 06:55 Dose: 30 mls/hr Documented by: Nystatin (Mycostatin Cream -) 1 applic TP BID [facility] Last Admin: 01/11/20 10:28 Dose: 1 applic Documented by: - Objective Vital Signs: Vital Signs Temperature 97.5 F L 01/11/20 06:00 Pulse Rate 87 01/11/20 06:00 Respiratory Rate 27 H 01/11/20 08:08 Blood Pressure 91/41 L 01/11/20 06:00 O2 Sat by Pulse Oximetry (%) 100 01/11/20 08:08 Constitutional: Yes: No Distress, Calm, Cachectic Cardiovascular: Yes: Regular Rate and Rhythm Respiratory: Yes: Regular, Mechanically Ventilated, Rhonchi (diffuse) Gastrointestinal: Yes: Soft, Hypoactive Bowel Sounds Genitourinary: Yes: Maravilla Present Musculoskeletal: Yes: Muscle Weakness Extremities: Yes: Other (contracted) Edema: Yes (generalized) Peripheral Pulses WNL: Yes Integumentary: Yes: Pressure Ulcer Wound/Incision: Yes: Dressing Dry and Intact Neurological: Yes: Pre-Existing Deficit Labs: CBC, BMP 01/11/20 08:54 01/11/20 08:54 Problem List - Problems (1) Dislodged jejunostomy tube Assessment/Plan: -IR consult placed for replacement -OK to use G tube for medications only -Hold TF Problems reviewed: Yes Code(s): T85.528A - DISPLACEMENT OF GASTROINTESTINAL PROSTH DEV/GRFT, INIT (2) C. difficile diarrhea Assessment/Plan: -Restart PO Vanco -Contact isolation Problems reviewed: Yes Code(s): A04.72 - ENTEROCOLITIS D/T CLOSTRIDIUM DIFFICILE, NOT SPCF RECUR (3) Chronic respiratory failure Assessment/Plan: -mech vent -Pulmonary consult -Not a candidate for weaning at this time Problems reviewed: Yes Code(s): J96.10 - CHRONIC RESPIRATORY FAILURE, UNSP W HYPOXIA OR HYPERCAPNIA Qualifiers: Respiratory failure complication: hypoxia and hypercapnia Qualified Code(s): J96.11 - Chronic respiratory failure with hypoxia; J96.12 - Chronic respiratory failure with hypercapnia (4) Functional quadriplegia Problems reviewed: Yes Code(s): R53.2 - FUNCTIONAL QUADRIPLEGIA (5) Severe malnutrition Assessment/Plan: -Prosource BID -Multivitamin -Vit C Problems reviewed: Yes Code(s): E43 - UNSPECIFIED SEVERE PROTEIN-CALORIE MALNUTRITION (6) Decubital ulcer Assessment/Plan: -Seen by Plastic surgery -Overall poor prognosis -Local wound care -Meropenem IV -ID consult Problems reviewed: Yes Code(s): L89.90 - PRESSURE ULCER OF UNSPECIFIED SITE, UNSPECIFIED STAGE Assessment/Plan See problem list
[2020-01-11] MEDS ORDERED: [UNRECOGNIZED DRUG - OTHER] GT SCH (11:00)
[2020-01-11] MEDS: AMINO ACIDS/PROTEIN HYDROLYS 30 ML LIQUID.PKT GT SCH (12:48)
[2020-01-11] MEDS: FERROUS SO4 300 MG/5 ML ORAL SOLN UNIT DOSE CUPS GT SCH ×2 (12:48→23:19)
[2020-01-11] MEDS: LACTOBACILLUS ACIDOPHILUS 1 TABLET GT SCH (12:48)
[2020-01-11] MEDS: MULTIVIT-MINERALS ORAL LIQUID GT SCH (12:48)
[2020-01-11] MEDS: ASCORBIC ACID 500 MG/5 ML GT SCH ×2 (12:48→23:32)
--- NOTE | 2020-01-11 12:48 | PN ---
Progress Note (short form) - Note Progress Note: PULMONARY Vented, poorly responsive. Febrile overnight. Vital Signs Period Temp Pulse Resp BP Sys/Gomez Pulse Ox Last 24 Hr 97.5 F-101.2 F 87-98 16-27 91-113/41-81 98-100 Intake & Output 01/08/20 01/09/20 01/10/20 01/11/20 23:59 23:59 23:59 23:59 Intake Total 210 840 500 Output Total 150 400 300 Balance -150 210 440 200 Weight 45.359 kg 45.359 kg Gen: vented, poorly responsive Heart: RRR Lung: scattered rhonchi Abd: soft, nontender Ext: no edema CBC, BMP 01/11/20 08:54 01/11/20 08:54 Active Medications Acetaminophen (Tylenol Oral Solution -) 650 mg GT Q6H PRN PRN Reason: fever Albuterol Sulfate (Ventolin 0.083% Nebulizer Soln -) 1 amp NEB RQID [facility] Last Admin: 01/11/20 08:08 Dose: 1 amp Documented by: Amino Acids (Prosource No Carb Liquid Pkt) 30 ml GT DAILY@0800 [facility] Ascorbic Acid (Vitamin C Oral Solution -) 500 mg GT BID [facility] Collagenase (Santyl -) 1 applic TP DAILY [facility]; Protocol Last Admin: 01/11/20 10:28 Dose: 1 applic Documented by: Collagenase (Santyl -) 1 applic TP DAILY [facility]; Protocol Famotidine (Pepcid) 20 mg PEG DAILY [facility] Ferrous Sulfate (Feosol) 300 mg GT BID [facility] Fluconazole (Diflucan 40mg/Ml Suspension -) 100 mg GT DAILY [facility] Meropenem 1 gm/ Dextrose 100 mls @ 200 mls/hr IVPB Q8H-IV [facility] Last Admin: 01/11/20 10:28 Dose: 200 mls/hr Documented by: Dextrose/Sodium Chloride (D5-1/2ns -) 1,000 mls @ 30 mls/hr IV ASDIR [facility] Last Admin: 01/11/20 06:55 Dose: 30 mls/hr Documented by: Lactobacillus Acidophilus (Bacid -) 1 tab GT DAILY [facility] Multivitamins/Minerals (Certavite-Antioxidant Liquid) 15 ml GT DAILY [facility] Nystatin (Mycostatin Ointment -) 1 applic TP BID [facility] Nystatin (Nystop Powder -) 1 applic TP BID [facility] Triamcinolone Acetonide (Aristocort 0.5% Ointment -) 1 applic TP BID [facility] Vancomycin HCl (Vancomycin Oral Solution) 125 mg GT Q6HPO [facility] A/P Chronic Respiratory Failure Suspect Right Atelectasis from mucous plugging COPD Cerebral Palsy Parkinsons Anemia - chest PT - mucomyst/albuterol nebs - position left side down - titrate Fio2 to keep SpO2 >90% - DVT prophylaxis
[2020-01-11] MEDS: NYSTATIN POWDER 100,000 UNITS/GM - 15 GM TOPICAL POWDER TP SCH ×2 (12:49→23:19)
[2020-01-11] MEDS: FAMOTIDINE 40 MG/5 ML ORAL SUSPENSION PEG SCH (12:49)
[2020-01-11] MEDS: NYSTATIN 100000 UNIT/GM TOPICAL OINTMENT 15 GM TUBE TP SCH ×2 (12:49→23:19)
[2020-01-11] MEDS: TRIAMCINOLONE ACET 0.5% OINT 15 GM TUBE TP SCH ×2 (12:50→23:19)
[2020-01-11] MEDS: VANCOMYCIN 250 MG/5 ML ORAL SOLUTION GT SCH ×3 (14:52→23:33)
[2020-01-11] MEDS: FLUCONAZOLE 40 MG/ML SUSPENSION GT SCH (14:53)
[2020-01-11] MEDS: ACETYLCYSTEINE 20% 200MG/ML 4 ML VIAL *FOR ORAL / INH USE ONLY NEB SCH (16:54)
[2020-01-11] MEDS: ACETAMINOPHEN 650 MG/20.3 ML ORAL SOLUTION (CUPS) GT PRN (18:02)
--- NOTE | 2020-01-11 22:26 | PN ---
Progress Note, Physician Chief Complaint: AWAKE, POORLY RESPONSIVE TEMPS DOWN AFEBRILE WBC IMPROVED BC (-) - Current Medication List Current Medications: Active Medications Acetaminophen (Tylenol Oral Solution -) 650 mg GT Q6H PRN PRN Reason: fever Last Admin: 01/11/20 18:02 Dose: 650 mg Documented by: Acetylcysteine (Mucomyst 20 Oral / Inh Use Only*) 200 mg NEB RQID [facility] Last Admin: 01/11/20 16:54 Dose: 200 mg Documented by: Albuterol Sulfate (Ventolin 0.083% Nebulizer Soln -) 1 amp NEB RQID [facility] Last Admin: 01/11/20 16:54 Dose: 1 amp Documented by: Amino Acids (Prosource No Carb Liquid Pkt) 30 ml GT DAILY@0800 [facility] Last Admin: 01/11/20 12:48 Dose: 30 ml Documented by: Ascorbic Acid (Vitamin C Oral Solution -) 500 mg GT BID [facility] Last Admin: 01/11/20 12:48 Dose: 500 mg Documented by: Collagenase (Santyl -) 1 applic TP DAILY [facility]; Protocol Last Admin: 01/11/20 12:49 Dose: 1 applic Documented by: Famotidine (Pepcid) 20 mg PEG DAILY [facility] Last Admin: 01/11/20 12:49 Dose: 20 mg Documented by: Ferrous Sulfate (Feosol) 300 mg GT BID [facility] Last Admin: 01/11/20 12:48 Dose: 300 mg Documented by: Fluconazole (Diflucan 40mg/Ml Suspension -) 100 mg GT DAILY [facility] Last Admin: 01/11/20 14:53 Dose: 100 mg Documented by: Meropenem 1 gm/ Dextrose 100 mls @ 200 mls/hr IVPB Q8H-IV [facility] Last Admin: 01/11/20 17:37 Dose: 200 mls/hr Documented by: Dextrose/Sodium Chloride (D5-1/2ns -) 1,000 mls @ 30 mls/hr IV ASDIR [facility] Last Admin: 01/11/20 17:38 Dose: 30 mls/hr Documented by: Lactobacillus Acidophilus (Bacid -) 1 tab GT DAILY [facility] Last Admin: 01/11/20 12:48 Dose: 1 tab Documented by: Multivitamins/Minerals (Certavite-Antioxidant Liquid) 15 ml GT DAILY [facility] Last Admin: 01/11/20 12:48 Dose: 15 ml Documented by: Nystatin (Mycostatin Ointment -) 1 applic TP BID [facility] Last Admin: 01/11/20 12:49 Dose: 1 applic Documented by: Nystatin (Nystop Powder -) 1 applic TP BID [facility] Last Admin: 01/11/20 12:49 Dose: 1 applic Documented by: Triamcinolone Acetonide (Aristocort 0.5% Ointment -) 1 applic TP BID [facility] Last Admin: 01/11/20 12:50 Dose: 1 applic Documented by: Vancomycin HCl (Vancomycin Oral Solution) 125 mg GT Q6HPO [facility] Last Admin: 01/11/20 17:38 Dose: 125 mg Documented by: - Objective Vital Signs: Vital Signs Temperature 98.8 F 01/11/20 15:00 Pulse Rate 124 H 01/11/20 16:00 Respiratory Rate 15 01/11/20 20:31 Blood Pressure 114/59 L 01/11/20 16:00 O2 Sat by Pulse Oximetry (%) 100 01/11/20 20:31 Constitutional: Yes: No Distress Eyes: Yes: Conjunctiva Clear Cardiovascular: Yes: Regular Rate and Rhythm, S1, S2 Respiratory: Yes: Mechanically Ventilated Gastrointestinal: Yes: Normal Bowel Sounds, Soft Extremities: Yes: Other (+CONTRACTURES) Edema: No Integumentary: Yes: Other (+ DECUBITUS ULCERS) Labs: CBC, BMP 01/11/20 08:54 01/11/20 08:54 Assessment/Plan CHRONIC RESP FAILURE R/O PNEUMONIA COPD PARKINSONISM HX MDR ORGANISMS AWAIT C/S CONTINUE MEROPENEM CONTACT PRECAUTIONS
[2020-01-12] MEDS ORDERED: MEROPENEM 1 GM VIAL (RESTRICTED TO ID) IVPB ONE ×3 (01:53→17:01)
[2020-01-12] MEDS ORDERED: DEXTROSE 5%-WATER 100 ML IVPB ONE ×3 (01:54→17:01)
[2020-01-12] MEDS: MEROPENEM 1 GM in DEXTROSE 5%-WATER 100 ML IVPB SCH ×3 (01:59→17:05)
[2020-01-12] MEDS: VANCOMYCIN 250 MG/5 ML ORAL SOLUTION GT SCH ×4 (07:28→23:33)
[2020-01-12] MEDS: ACETYLCYSTEINE 20% 200MG/ML 4 ML VIAL *FOR ORAL / INH USE ONLY NEB SCH ×5 (08:30→20:35)
[2020-01-12] MEDS: ALBUTEROL SO4 0.083% IH SOL 2.5 MG/3 ML VIAL.NEB. NEB SCH ×4 (08:30→20:30)
[2020-01-12] MEDS: AMINO ACIDS/PROTEIN HYDROLYS 30 ML LIQUID.PKT GT SCH (08:55)
[2020-01-12] MEDS: ACETAMINOPHEN 650 MG/20.3 ML ORAL SOLUTION (CUPS) GT PRN (09:45)
[2020-01-12] MEDS ORDERED: PT OWN MED DRAWER 7, Y5N ONE ×3 (10:49→21:13)
[2020-01-12] MEDS: ASCORBIC ACID 500 MG/5 ML GT SCH ×2 (10:51→21:21)
[2020-01-12] MEDS: FAMOTIDINE 40 MG/5 ML ORAL SUSPENSION PEG SCH (10:51)
[2020-01-12] MEDS: MULTIVIT-MINERALS ORAL LIQUID GT SCH (10:52)
[2020-01-12] MEDS: LACTOBACILLUS ACIDOPHILUS 1 TABLET GT SCH (10:52)
[2020-01-12] MEDS: FERROUS SO4 300 MG/5 ML ORAL SOLN UNIT DOSE CUPS GT SCH ×2 (10:52→21:21)
[2020-01-12] MEDS: COLLAGENASE CLOSTRIDIUM HIST. 30 GRAMS TUBE TP SCH (10:53)
[2020-01-12] MEDS: NYSTATIN POWDER 100,000 UNITS/GM - 15 GM TOPICAL POWDER TP SCH ×2 (10:53→21:21)
[2020-01-12] MEDS: TRIAMCINOLONE ACET 0.5% OINT 15 GM TUBE TP SCH ×2 (10:53→21:46)
[2020-01-12] MEDS: NYSTATIN 100000 UNIT/GM TOPICAL OINTMENT 15 GM TUBE TP SCH ×2 (10:53→21:21)
[2020-01-12] MEDS: FLUCONAZOLE 40 MG/ML SUSPENSION GT SCH (12:34)
--- NOTE | 2020-01-12 13:36 | PN ---
Progress Note (short form) - Note Progress Note: PULMONARY Vented, poorly responsive. Febrile this AM. CXR remains improved. Vital Signs Period Temp Pulse Resp BP Sys/Gomez Pulse Ox Last 24 Hr 98 F-102.1 F 92-124 10-22 93-138/45-65 95-100 Intake & Output 01/09/20 01/10/20 01/11/20 01/12/20 23:59 23:59 23:59 23:59 Intake Total 146 956 0104 100 Output Total 400 400 Balance 210 440 600 100 Weight 45.359 kg 45.359 kg Gen: vented, poorly responsive Heart: RRR Lung: scattered rhonchi Abd: soft, nontender Ext: no edema CBC, BMP 01/11/20 08:54 01/11/20 08:54 Active Medications Acetaminophen (Tylenol Oral Solution -) 650 mg GT Q6H PRN PRN Reason: fever Last Admin: 01/12/20 09:45 Dose: 650 mg Documented by: Acetylcysteine (Mucomyst 20 Oral / Inh Use Only*) 200 mg NEB RQID [facility] Last Admin: 01/12/20 09:05 Dose: 200 mg Documented by: Albuterol Sulfate (Ventolin 0.083% Nebulizer Soln -) 1 amp NEB RQID [facility] Last Admin: 01/12/20 08:30 Dose: 1 amp Documented by: Amino Acids (Prosource No Carb Liquid Pkt) 30 ml GT DAILY@0800 [facility] Last Admin: 01/12/20 08:55 Dose: 30 ml Documented by: Ascorbic Acid (Vitamin C Oral Solution -) 500 mg GT BID [facility] Last Admin: 01/12/20 10:51 Dose: 500 mg Documented by: Collagenase (Santyl -) 1 applic TP DAILY [facility]; Protocol Last Admin: 01/12/20 10:53 Dose: 1 applic Documented by: Famotidine (Pepcid) 20 mg PEG DAILY [facility] Last Admin: 01/12/20 10:51 Dose: 20 mg Documented by: Ferrous Sulfate (Feosol) 300 mg GT BID [facility] Last Admin: 01/12/20 10:52 Dose: 300 mg Documented by: Fluconazole (Diflucan 40mg/Ml Suspension -) 100 mg GT DAILY [facility] Last Admin: 01/12/20 12:34 Dose: 100 mg Documented by: Meropenem 1 gm/ Dextrose 100 mls @ 200 mls/hr IVPB Q8H-IV [facility] Last Admin: 01/12/20 10:52 Dose: 200 mls/hr Documented by: Dextrose/Sodium Chloride (D5-1/2ns -) 1,000 mls @ 30 mls/hr IV ASDIR [facility] Last Admin: 01/11/20 17:38 Dose: 30 mls/hr Documented by: Lactobacillus Acidophilus (Bacid -) 1 tab GT DAILY [facility] Last Admin: 01/12/20 10:52 Dose: 1 tab Documented by: Multivitamins/Minerals (Certavite-Antioxidant Liquid) 15 ml GT DAILY [facility] Last Admin: 01/12/20 10:52 Dose: 15 ml Documented by: Nystatin (Mycostatin Ointment -) 1 applic TP BID [facility] Last Admin: 01/12/20 10:53 Dose: 1 applic Documented by: Nystatin (Nystop Powder -) 1 applic TP BID [facility] Last Admin: 01/12/20 10:53 Dose: 1 applic Documented by: Triamcinolone Acetonide (Aristocort 0.5% Ointment -) 1 applic TP BID [facility] Last Admin: 01/12/20 10:53 Dose: 1 applic Documented by: Vancomycin HCl (Vancomycin Oral Solution) 125 mg GT Q6HPO [facility] Last Admin: 01/12/20 12:36 Dose: 125 mg Documented by: A/P Chronic Respiratory Failure Suspect Right Atelectasis from mucous plugging COPD Cerebral Palsy Parkinsons Anemia - antibiotics per ID - f/u cultures - chest PT - mucomyst/albuterol nebs - titrate Fio2 to keep SpO2 >90% - DVT prophylaxis
--- NOTE | 2020-01-12 13:37 | PN ---
Progress Note, Physician Chief Complaint: J tube dislodged Multiple decubitus Sepsis History of Present Illness: This is a 69 y/o male from [facility] with a significant PMHx of Cerebral Palsy, Intellectual Disabilities, Parkinson's Disease, Chronic Respiratory Failure s/p trach-vent dependent, COPD, J-tube (for feeds), and G tube (for decompression), recently admitted with PNA, Sepsis and found to have C. diff + VRE. Presents to the ED via ambulance for J-tube displacement. Pt also has multiple stage 4 + unstageable decubetii being locally treated upon discharge. Started on Meropenem due to low grade fever + leukocytosis. J tube re-inserted by IR - Current Medication List Current Medications: Active Medications Acetaminophen (Tylenol Oral Solution -) 650 mg GT Q6H PRN PRN Reason: fever Last Admin: 01/12/20 09:45 Dose: 650 mg Documented by: Acetylcysteine (Mucomyst 20 Oral / Inh Use Only*) 200 mg NEB RQID [facility] Last Admin: 01/12/20 09:05 Dose: 200 mg Documented by: Albuterol Sulfate (Ventolin 0.083% Nebulizer Soln -) 1 amp NEB RQID [facility] Last Admin: 01/12/20 08:30 Dose: 1 amp Documented by: Amino Acids (Prosource No Carb Liquid Pkt) 30 ml GT DAILY@0800 [facility] Last Admin: 01/12/20 08:55 Dose: 30 ml Documented by: Ascorbic Acid (Vitamin C Oral Solution -) 500 mg GT BID [facility] Last Admin: 01/12/20 10:51 Dose: 500 mg Documented by: Collagenase (Santyl -) 1 applic TP DAILY [facility]; Protocol Last Admin: 01/12/20 10:53 Dose: 1 applic Documented by: Famotidine (Pepcid) 20 mg PEG DAILY [facility] Last Admin: 01/12/20 10:51 Dose: 20 mg Documented by: Ferrous Sulfate (Feosol) 300 mg GT BID [facility] Last Admin: 01/12/20 10:52 Dose: 300 mg Documented by: Fluconazole (Diflucan 40mg/Ml Suspension -) 100 mg GT DAILY [facility] Last Admin: 01/12/20 12:34 Dose: 100 mg Documented by: Meropenem 1 gm/ Dextrose 100 mls @ 200 mls/hr IVPB Q8H-IV [facility] Last Admin: 01/12/20 10:52 Dose: 200 mls/hr Documented by: Dextrose/Sodium Chloride (D5-1/2ns -) 1,000 mls @ 30 mls/hr IV ASDIR [facility] Last Admin: 01/11/20 17:38 Dose: 30 mls/hr Documented by: Lactobacillus Acidophilus (Bacid -) 1 tab GT DAILY [facility] Last Admin: 01/12/20 10:52 Dose: 1 tab Documented by: Multivitamins/Minerals (Certavite-Antioxidant Liquid) 15 ml GT DAILY [facility] Last Admin: 01/12/20 10:52 Dose: 15 ml Documented by: Nystatin (Mycostatin Ointment -) 1 applic TP BID [facility] Last Admin: 01/12/20 10:53 Dose: 1 applic Documented by: Nystatin (Nystop Powder -) 1 applic TP BID [facility] Last Admin: 01/12/20 10:53 Dose: 1 applic Documented by: Triamcinolone Acetonide (Aristocort 0.5% Ointment -) 1 applic TP BID [facility] Last Admin: 01/12/20 10:53 Dose: 1 applic Documented by: Vancomycin HCl (Vancomycin Oral Solution) 125 mg GT Q6HPO [facility] Last Admin: 01/12/20 12:36 Dose: 125 mg Documented by: - Objective Vital Signs: Vital Signs Temperature 102.1 F H 01/12/20 09:30 Pulse Rate 105 H 01/12/20 09:30 Respiratory Rate 22 H 01/12/20 09:30 Blood Pressure 96/54 L 01/12/20 09:30 O2 Sat by Pulse Oximetry (%) 100 01/12/20 09:30 Constitutional: Yes: No Distress, Calm, Cachectic Cardiovascular: Yes: Regular Rate and Rhythm Respiratory: Yes: Regular, Mechanically Ventilated, Rhonchi (diffuse) Gastrointestinal: Yes: Soft, Hypoactive Bowel Sounds Genitourinary: Yes: Maravilla Present Musculoskeletal: Yes: Muscle Weakness Extremities: Yes: Other (contracted) Edema: Yes (Generalized) Peripheral Pulses WNL: Yes Neurological: Yes: Pre-Existing Deficit Labs: CBC, BMP 01/11/20 08:54 01/11/20 08:54 Problem List - Problems (1) Dislodged jejunostomy tube Assessment/Plan: -J tube replaced by IR -Restart TF Promote at 40 cc/hr, increase it by 10 cc Q6H with goal rate of 60cc/hr+ h20 15 cc/hr Problems reviewed: Yes Code(s): T85.528A - DISPLACEMENT OF GASTROINTESTINAL PROSTH DEV/GRFT, INIT (2) C. difficile diarrhea Assessment/Plan: -Restart PO Vanco Q6H -Contact isolation Problems reviewed: Yes Code(s): A04.72 - ENTEROCOLITIS D/T CLOSTRIDIUM DIFFICILE, NOT SPCF RECUR (3) Chronic respiratory failure Assessment/Plan: -mech vent -Pulmonary consult -Not a candidate for weaning at this time Problems reviewed: Yes Code(s): J96.10 - CHRONIC RESPIRATORY FAILURE, UNSP W HYPOXIA OR HYPERCAPNIA Qualifiers: Respiratory failure complication: hypoxia and hypercapnia Qualified Code(s): J96.11 - Chronic respiratory failure with hypoxia; J96.12 - Chronic respiratory failure with hypercapnia (4) Functional quadriplegia Problems reviewed: Yes Code(s): R53.2 - FUNCTIONAL QUADRIPLEGIA (5) Severe malnutrition Assessment/Plan: -Prosource BID -Multivitamin -Vit C Problems reviewed: Yes Code(s): E43 - UNSPECIFIED SEVERE PROTEIN-CALORIE MALNUTRITION (6) Decubital ulcer Assessment/Plan: -Seen by Plastic surgery -Overall poor prognosis -Local wound care -Meropenem IV -ID consult Problems reviewed: Yes Code(s): L89.90 - PRESSURE ULCER OF UNSPECIFIED SITE, UNSPECIFIED STAGE Assessment/Plan See problem list
--- NOTE | 2020-01-12 14:55 | PN ---
Progress Note, Physician Chief Complaint: AWAKE, POORLY RESPONSIVE SPIKED TEMP 102 THIS AM WBC IMPROVED BC (-) - Current Medication List Current Medications: Active Medications Acetaminophen (Tylenol Oral Solution -) 650 mg GT Q6H PRN PRN Reason: fever Last Admin: 01/12/20 09:45 Dose: 650 mg Documented by: Acetylcysteine (Mucomyst 20 Oral / Inh Use Only*) 200 mg NEB RQID [facility] Last Admin: 01/12/20 09:05 Dose: 200 mg Documented by: Albuterol Sulfate (Ventolin 0.083% Nebulizer Soln -) 1 amp NEB RQID [facility] Last Admin: 01/12/20 08:30 Dose: 1 amp Documented by: Amino Acids (Prosource No Carb Liquid Pkt) 30 ml GT DAILY@0800 [facility] Last Admin: 01/12/20 08:55 Dose: 30 ml Documented by: Ascorbic Acid (Vitamin C Oral Solution -) 500 mg GT BID [facility] Last Admin: 01/12/20 10:51 Dose: 500 mg Documented by: Collagenase (Santyl -) 1 applic TP DAILY [facility]; Protocol Last Admin: 01/12/20 10:53 Dose: 1 applic Documented by: Famotidine (Pepcid) 20 mg PEG DAILY [facility] Last Admin: 01/12/20 10:51 Dose: 20 mg Documented by: Ferrous Sulfate (Feosol) 300 mg GT BID [facility] Last Admin: 01/12/20 10:52 Dose: 300 mg Documented by: Fluconazole (Diflucan 40mg/Ml Suspension -) 100 mg GT DAILY [facility] Last Admin: 01/12/20 12:34 Dose: 100 mg Documented by: Meropenem 1 gm/ Dextrose 100 mls @ 200 mls/hr IVPB Q8H-IV [facility] Last Admin: 01/12/20 10:52 Dose: 200 mls/hr Documented by: Lactobacillus Acidophilus (Bacid -) 1 tab GT DAILY [facility] Last Admin: 01/12/20 10:52 Dose: 1 tab Documented by: Multivitamins/Minerals (Certavite-Antioxidant Liquid) 15 ml GT DAILY [facility] Last Admin: 01/12/20 10:52 Dose: 15 ml Documented by: Nystatin (Mycostatin Ointment -) 1 applic TP BID [facility] Last Admin: 01/12/20 10:53 Dose: 1 applic Documented by: Nystatin (Nystop Powder -) 1 applic TP BID [facility] Last Admin: 01/12/20 10:53 Dose: 1 applic Documented by: Triamcinolone Acetonide (Aristocort 0.5% Ointment -) 1 applic TP BID [facility] Last Admin: 01/12/20 10:53 Dose: 1 applic Documented by: Vancomycin HCl (Vancomycin Oral Solution) 125 mg GT Q6HPO [facility] Last Admin: 01/12/20 12:36 Dose: 125 mg Documented by: - Objective Vital Signs: Vital Signs Temperature 102.1 F H 01/12/20 09:30 Pulse Rate 105 H 01/12/20 09:30 Respiratory Rate 22 H 01/12/20 09:30 Blood Pressure 96/54 L 01/12/20 09:30 O2 Sat by Pulse Oximetry (%) 100 01/12/20 09:30 Constitutional: Yes: No Distress Eyes: Yes: Conjunctiva Clear Cardiovascular: Yes: Regular Rate and Rhythm, S1, S2 Respiratory: Yes: Mechanically Ventilated Gastrointestinal: Yes: Normal Bowel Sounds, Soft Extremities: Yes: Other (CONTRACTED) Wound/Incision: Yes: Other (MULTIPLE DECUBITUS WOUNDS) Labs: CBC, BMP 01/11/20 08:54 01/11/20 08:54 Assessment/Plan FEVER CHRONIC RESP FAILURE R/O PNEUMONIA COPD PARKINSONISM HX MDR ORGANISMS REPEAT BC CHECK SPUTUM C/S CONTINUE MEROPENEM CONTACT PRECAUTIONS
[2020-01-13] MEDS ORDERED: DEXTROSE 5%-WATER 100 ML IVPB ONE ×3 (01:04→17:42)
[2020-01-13] MEDS ORDERED: MEROPENEM 1 GM VIAL (RESTRICTED TO ID) IVPB ONE ×3 (01:04→17:42)
[2020-01-13] MEDS: MEROPENEM 1 GM in DEXTROSE 5%-WATER 100 ML IVPB SCH ×3 (01:30→17:49)
[2020-01-13] MEDS: VANCOMYCIN 250 MG/5 ML ORAL SOLUTION GT SCH ×3 (06:38→17:49)
--- NOTE | 2020-01-13 07:19 | PN ---
Progress Note, Physician History of Present Illness: PULMONARY NO CHANGE,POORLY RESPONSIVE ON VENT SUPPORT AC MODE - Current Medication List Current Medications: Active Medications Acetaminophen (Tylenol Oral Solution -) 650 mg GT Q6H PRN PRN Reason: fever Last Admin: 01/12/20 09:45 Dose: 650 mg Documented by: Acetylcysteine (Mucomyst 20 Oral / Inh Use Only*) 200 mg NEB RQID [facility] Last Admin: 01/12/20 20:35 Dose: 200 mg Documented by: Albuterol Sulfate (Ventolin 0.083% Nebulizer Soln -) 1 amp NEB RQID [facility] Last Admin: 01/12/20 20:30 Dose: 1 amp Documented by: Amino Acids (Prosource No Carb Liquid Pkt) 30 ml GT DAILY@0800 [facility] Last Admin: 01/12/20 08:55 Dose: 30 ml Documented by: Ascorbic Acid (Vitamin C Oral Solution -) 500 mg GT BID [facility] Last Admin: 01/12/20 21:21 Dose: 500 mg Documented by: Collagenase (Santyl -) 1 applic TP DAILY [facility]; Protocol Last Admin: 01/12/20 10:53 Dose: 1 applic Documented by: Famotidine (Pepcid) 20 mg PEG DAILY [facility] Last Admin: 01/12/20 10:51 Dose: 20 mg Documented by: Ferrous Sulfate (Feosol) 300 mg GT BID [facility] Last Admin: 01/12/20 21:21 Dose: 300 mg Documented by: Fluconazole (Diflucan 40mg/Ml Suspension -) 100 mg GT DAILY [facility] Last Admin: 01/12/20 12:34 Dose: 100 mg Documented by: Meropenem 1 gm/ Dextrose 100 mls @ 200 mls/hr IVPB Q8H-IV [facility] Last Admin: 01/13/20 01:30 Dose: 200 mls/hr Documented by: Lactobacillus Acidophilus (Bacid -) 1 tab GT DAILY [facility] Last Admin: 01/12/20 10:52 Dose: 1 tab Documented by: Multivitamins/Minerals (Certavite-Antioxidant Liquid) 15 ml GT DAILY [facility] Last Admin: 01/12/20 10:52 Dose: 15 ml Documented by: Nystatin (Mycostatin Ointment -) 1 applic TP BID [facility] Last Admin: 01/12/20 21:21 Dose: 1 applic Documented by: Nystatin (Nystop Powder -) 1 applic TP BID [facility] Last Admin: 01/12/20 21:21 Dose: 1 applic Documented by: Triamcinolone Acetonide (Aristocort 0.5% Ointment -) 1 applic TP BID [facility] Last Admin: 01/12/20 21:46 Dose: 1 applic Documented by: Vancomycin HCl (Vancomycin Oral Solution) 125 mg GT Q6HPO [facility] Last Admin: 01/13/20 06:38 Dose: 125 mg Documented by: - Objective Vital Signs: Vital Signs Temperature 99 F 01/13/20 06:00 Pulse Rate 115 H 01/13/20 06:00 Respiratory Rate 20 01/13/20 06:00 Blood Pressure 96/54 L 01/13/20 06:00 O2 Sat by Pulse Oximetry (%) 98 01/13/20 06:00 Constitutional: Yes: Cachectic, Other (POORLY RESPONSIVE) Eyes: Yes: WNL HENT: Yes: WNL Neck: Yes: Supple (TRACH) Cardiovascular: Yes: Regular Rate and Rhythm, S1, S2 Respiratory: Yes: Diminished, Rhonchi (FEW RHONCHI) Gastrointestinal: Yes: Normal Bowel Sounds, Soft Extremities: Yes: Other (CONTRACTED) Labs: CBC, BMP Problem List - Problems (1) Anemia Code(s): D64.9 - ANEMIA, UNSPECIFIED Qualifiers: (2) Atelectasis Code(s): J98.11 - ATELECTASIS (3) COPD (chronic obstructive pulmonary disease) Code(s): J44.9 - CHRONIC OBSTRUCTIVE PULMONARY DISEASE, UNSPECIFIED Qualifiers: (4) Cerebral palsy Code(s): G80.9 - CEREBRAL PALSY, UNSPECIFIED Qualifiers: (5) Chronic respiratory failure Code(s): J96.10 - CHRONIC RESPIRATORY FAILURE, UNSP W HYPOXIA OR HYPERCAPNIA Qualifiers: Respiratory failure complication: hypoxia and hypercapnia Qualified Code(s): J96.11 - Chronic respiratory failure with hypoxia; J96.12 - Chronic respiratory failure with hypercapnia (6) Functional quadriplegia Code(s): R53.2 - FUNCTIONAL QUADRIPLEGIA (7) G tube feedings Code(s): Z93.1 - GASTROSTOMY STATUS (8) Malfunctioning jejunostomy tube Code(s): K94.13 - ENTEROSTOMY MALFUNCTION (9) Parkinson disease Code(s): G20 - PARKINSON'S DISEASE (10) Severe malnutrition Code(s): E43 - UNSPECIFIED SEVERE PROTEIN-CALORIE MALNUTRITION (11) Dislodged jejunostomy tube Code(s): T85.528A - DISPLACEMENT OF GASTROINTESTINAL PROSTH DEV/GRFT, INIT Assessment/Plan A/P Chronic Respiratory Failure Suspect Right Atelectasis from mucous plugging improved COPD Cerebral Palsy Parkinsons Anemia - antibiotics per ID - f/u cultures - chest PT - mucomyst/albuterol nebs - titrate Fio2 to keep SpO2 >90% - DVT prophylaxis - f/u chest x-rays DR HERNANDEZ
[2020-01-13] MEDS: ALBUTEROL SO4 0.083% IH SOL 2.5 MG/3 ML VIAL.NEB. NEB SCH ×4 (07:40→20:05)
[2020-01-13] MEDS: ACETYLCYSTEINE 20% 200MG/ML 4 ML VIAL *FOR ORAL / INH USE ONLY NEB SCH ×4 (08:52→20:05)
[2020-01-13] MEDS ORDERED: PT OWN MED DRAWER 7, Y5N ONE ×6 (09:04→21:08)
[2020-01-13] MEDS: AMINO ACIDS/PROTEIN HYDROLYS 30 ML LIQUID.PKT GT SCH (09:29)
[2020-01-13] MEDS: LACTOBACILLUS ACIDOPHILUS 1 TABLET GT SCH (09:29)
[2020-01-13] MEDS: FLUCONAZOLE 40 MG/ML SUSPENSION GT SCH (09:30)
[2020-01-13] MEDS: MULTIVIT-MINERALS ORAL LIQUID GT SCH (09:30)
[2020-01-13] MEDS: FERROUS SO4 300 MG/5 ML ORAL SOLN UNIT DOSE CUPS GT SCH ×2 (09:31→21:10)
[2020-01-13] MEDS: FAMOTIDINE 40 MG/5 ML ORAL SUSPENSION PEG SCH (09:31)
[2020-01-13] MEDS: ASCORBIC ACID 500 MG/5 ML GT SCH ×2 (09:32→21:10)
[2020-01-13] MEDS: ACETAMINOPHEN 650 MG/20.3 ML ORAL SOLUTION (CUPS) GT PRN (09:32)
[2020-01-13] MEDS: COLLAGENASE CLOSTRIDIUM HIST. 30 GRAMS TUBE TP SCH (10:34)
[2020-01-13] MEDS: NYSTATIN 100000 UNIT/GM TOPICAL OINTMENT 15 GM TUBE TP SCH ×2 (10:34→21:11)
[2020-01-13] MEDS: NYSTATIN POWDER 100,000 UNITS/GM - 15 GM TOPICAL POWDER TP SCH ×2 (10:34→21:11)
[2020-01-13] MEDS: TRIAMCINOLONE ACET 0.5% OINT 15 GM TUBE TP SCH ×2 (10:34→21:11)
--- NOTE | 2020-01-13 10:57 | PN ---
Progress Note, Physician Chief Complaint: J tube dislodged Multiple decubitus Sepsis History of Present Illness: This is a 69 y/o male from [facility] with a significant PMHx of Cerebral Palsy, Intellectual Disabilities, Parkinson's Disease, Chronic Respiratory Failure s/p trach-vent dependent, COPD, J-tube (for feeds), and G tube (for decompression), recently admitted with PNA, Sepsis and found to have C. diff + VRE. Presents to the ED via ambulance for J-tube displacement. Pt also has multiple stage 4 + unstageable decubetii being locally treated upon discharge. Started on Meropenem due to low grade fever + leukocytosis. J tube re-inserted by IR Tolerating TF - Current Medication List Current Medications: Active Medications Acetaminophen (Tylenol Oral Solution -) 650 mg GT Q6H PRN PRN Reason: fever Last Admin: 01/13/20 09:32 Dose: 650 mg Documented by: Acetylcysteine (Mucomyst 20 Oral / Inh Use Only*) 200 mg NEB RQID [facility] Last Admin: 01/13/20 08:52 Dose: 200 mg Documented by: Albuterol Sulfate (Ventolin 0.083% Nebulizer Soln -) 1 amp NEB RQID [facility] Last Admin: 01/13/20 07:40 Dose: 1 amp Documented by: Amino Acids (Prosource No Carb Liquid Pkt) 30 ml GT DAILY@0800 [facility] Last Admin: 01/13/20 09:29 Dose: 30 ml Documented by: Ascorbic Acid (Vitamin C Oral Solution -) 500 mg GT BID [facility] Last Admin: 01/13/20 09:32 Dose: 500 mg Documented by: Collagenase (Santyl -) 1 applic TP DAILY [facility]; Protocol Last Admin: 01/13/20 10:34 Dose: 1 applic Documented by: Famotidine (Pepcid) 20 mg PEG DAILY [facility] Last Admin: 01/13/20 09:31 Dose: 20 mg Documented by: Ferrous Sulfate (Feosol) 300 mg GT BID [facility] Last Admin: 01/13/20 09:31 Dose: 300 mg Documented by: Fluconazole (Diflucan 40mg/Ml Suspension -) 100 mg GT DAILY [facility] Last Admin: 01/13/20 09:30 Dose: 100 mg Documented by: Meropenem 1 gm/ Dextrose 100 mls @ 200 mls/hr IVPB Q8H-IV [facility] Last Admin: 01/13/20 09:31 Dose: 200 mls/hr Documented by: Lactobacillus Acidophilus (Bacid -) 1 tab GT DAILY [facility] Last Admin: 01/13/20 09:29 Dose: 1 tab Documented by: Multivitamins/Minerals (Certavite-Antioxidant Liquid) 15 ml GT DAILY [facility] Last Admin: 01/13/20 09:30 Dose: 15 ml Documented by: Nystatin (Mycostatin Ointment -) 1 applic TP BID [facility] Last Admin: 01/13/20 10:34 Dose: 1 applic Documented by: Nystatin (Nystop Powder -) 1 applic TP BID [facility] Last Admin: 01/13/20 10:34 Dose: 1 applic Documented by: Triamcinolone Acetonide (Aristocort 0.5% Ointment -) 1 applic TP BID [facility] Last Admin: 01/13/20 10:34 Dose: 1 applic Documented by: Vancomycin HCl (Vancomycin Oral Solution) 125 mg GT Q6HPO [facility] Last Admin: 01/13/20 06:38 Dose: 125 mg Documented by: - Objective Vital Signs: Vital Signs Temperature 100.2 F H 01/13/20 10:00 Pulse Rate 110 H 01/13/20 10:00 Respiratory Rate 19 01/13/20 10:00 Blood Pressure 100/60 01/13/20 10:00 O2 Sat by Pulse Oximetry (%) 99 01/13/20 10:00 Constitutional: Yes: No Distress, Calm, Cachectic Cardiovascular: Yes: Regular Rate and Rhythm Respiratory: Yes: Regular, CTA Bilaterally, Mechanically Ventilated Gastrointestinal: Yes: Normal Bowel Sounds, Soft Genitourinary: Yes: Maravilla Present Musculoskeletal: Yes: Muscle Weakness Extremities: Yes: Other (contracted) Edema: Yes (generalized) Peripheral Pulses WNL: Yes Integumentary: Yes: Pressure Ulcer Wound/Incision: Yes: Dressing Dry and Intact Neurological: Yes: Pre-Existing Deficit Labs: CBC, BMP 01/11/20 08:54 01/11/20 08:54 Problem List - Problems (1) Dislodged jejunostomy tube Assessment/Plan: -J tube replaced by IR -Tolerating TF Promote at 40 cc/hr, increase it by 10 cc Q6H with goal rate of 60cc/hr+ h20 15 cc/hr Problems reviewed: Yes Code(s): T85.528A - DISPLACEMENT OF GASTROINTESTINAL PROSTH DEV/GRFT, INIT (2) C. difficile diarrhea Assessment/Plan: -Restart PO Vanco Q6H -Contact isolation Problems reviewed: Yes Code(s): A04.72 - ENTEROCOLITIS D/T CLOSTRIDIUM DIFFICILE, NOT SPCF RECUR (3) Chronic respiratory failure Assessment/Plan: -mech vent -Pulmonary consult -Not a candidate for weaning at this time Problems reviewed: Yes Code(s): J96.10 - CHRONIC RESPIRATORY FAILURE, UNSP W HYPOXIA OR HYPERCAPNIA Qualifiers: Respiratory failure complication: hypoxia and hypercapnia Qualified Code(s): J96.11 - Chronic respiratory failure with hypoxia; J96.12 - Chronic respiratory failure with hypercapnia (4) Functional quadriplegia Problems reviewed: Yes Code(s): R53.2 - FUNCTIONAL QUADRIPLEGIA (5) Severe malnutrition Assessment/Plan: -Prosource BID -Multivitamin -Vit C Problems reviewed: Yes Code(s): E43 - UNSPECIFIED SEVERE PROTEIN-CALORIE MALNUTRITION (6) Decubital ulcer Assessment/Plan: -Seen by Plastic surgery -Overall poor prognosis -Local wound care -Meropenem IV -ID consult Problems reviewed: Yes Code(s): L89.90 - PRESSURE ULCER OF UNSPECIFIED SITE, UNSPECIFIED STAGE Assessment/Plan See problem list
--- NOTE | 2020-01-13 23:15 | PN ---
Progress Note, Physician Chief Complaint: AWAKE, POORLY RESPONSIVE LOW GRADE TEMP WBC IMPROVED WNL BC (-) SPUTUM C/S PENDING - Current Medication List Current Medications: Active Medications Acetaminophen (Tylenol Oral Solution -) 650 mg GT Q6H PRN PRN Reason: fever Last Admin: 01/13/20 09:32 Dose: 650 mg Documented by: Acetylcysteine (Mucomyst 20 Oral / Inh Use Only*) 200 mg NEB RQID [facility] Last Admin: 01/13/20 20:05 Dose: 200 mg Documented by: Albuterol Sulfate (Ventolin 0.083% Nebulizer Soln -) 1 amp NEB RQID [facility] Last Admin: 01/13/20 20:05 Dose: 1 amp Documented by: Amino Acids (Prosource No Carb Liquid Pkt) 30 ml GT DAILY@0800 [facility] Last Admin: 01/13/20 09:29 Dose: 30 ml Documented by: Ascorbic Acid (Vitamin C Oral Solution -) 500 mg GT BID [facility] Last Admin: 01/13/20 21:10 Dose: 500 mg Documented by: Collagenase (Santyl -) 1 applic TP DAILY [facility]; Protocol Last Admin: 01/13/20 10:34 Dose: 1 applic Documented by: Famotidine (Pepcid) 20 mg PEG DAILY [facility] Last Admin: 01/13/20 09:31 Dose: 20 mg Documented by: Ferrous Sulfate (Feosol) 300 mg GT BID [facility] Last Admin: 01/13/20 21:10 Dose: 300 mg Documented by: Fluconazole (Diflucan 40mg/Ml Suspension -) 100 mg GT DAILY [facility] Last Admin: 01/13/20 09:30 Dose: 100 mg Documented by: Meropenem 1 gm/ Dextrose 100 mls @ 200 mls/hr IVPB Q8H-IV [facility] Last Admin: 01/13/20 17:49 Dose: 200 mls/hr Documented by: Lactobacillus Acidophilus (Bacid -) 1 tab GT DAILY [facility] Last Admin: 01/13/20 09:29 Dose: 1 tab Documented by: Multivitamins/Minerals (Certavite-Antioxidant Liquid) 15 ml GT DAILY [facility] Last Admin: 01/13/20 09:30 Dose: 15 ml Documented by: Nystatin (Mycostatin Ointment -) 1 applic TP BID [facility] Last Admin: 01/13/20 21:11 Dose: 1 applic Documented by: Nystatin (Nystop Powder -) 1 applic TP BID [facility] Last Admin: 01/13/20 21:11 Dose: 1 applic Documented by: Triamcinolone Acetonide (Aristocort 0.5% Ointment -) 1 applic TP BID [facility] Last Admin: 01/13/20 21:11 Dose: 1 applic Documented by: Vancomycin HCl (Vancomycin Oral Solution) 125 mg GT Q6HPO [facility] Last Admin: 01/13/20 17:49 Dose: 125 mg Documented by: - Objective Vital Signs: Vital Signs Temperature 97.8 F 01/13/20 18:00 Pulse Rate 101 H 01/13/20 18:00 Respiratory Rate 16 01/13/20 20:00 Blood Pressure 90/50 L 01/13/20 18:00 O2 Sat by Pulse Oximetry (%) 100 01/13/20 20:00 Constitutional: Yes: Cachectic Eyes: Yes: Conjunctiva Clear Cardiovascular: Yes: Regular Rate and Rhythm, S1, S2 Respiratory: Yes: Diminished Gastrointestinal: Yes: Normal Bowel Sounds, Soft Edema: Yes Labs: CBC, BMP 01/11/20 08:54 01/11/20 08:54 Assessment/Plan FEVER CHRONIC RESP FAILURE R/O PNEUMONIA COPD PARKINSONISM HX MDR ORGANISMS REPEAT BC PENDING CHECK SPUTUM C/S CONTINUE MEROPENEM CONTACT PRECAUTIONS
[2020-01-14] MEDS: VANCOMYCIN 250 MG/5 ML ORAL SOLUTION GT SCH ×5 (00:55→23:55)
[2020-01-14] MEDS ORDERED: MEROPENEM 1 GM VIAL (RESTRICTED TO ID) IVPB ONE ×3 (01:11→17:54)
[2020-01-14] MEDS ORDERED: DEXTROSE 5%-WATER 100 ML IVPB ONE ×3 (01:11→17:54)
[2020-01-14] MEDS ORDERED: PT OWN MED DRAWER 7, Y5N ONE ×5 (01:13→23:53)
[2020-01-14] MEDS: MEROPENEM 1 GM in DEXTROSE 5%-WATER 100 ML IVPB SCH ×3 (01:15→18:11)
[2020-01-14] MEDS: ACETAMINOPHEN 650 MG/20.3 ML ORAL SOLUTION (CUPS) GT PRN ×2 (03:29→21:37)
[2020-01-14] MEDS: ALBUTEROL SO4 0.083% IH SOL 2.5 MG/3 ML VIAL.NEB. NEB SCH ×4 (08:50→20:01)
[2020-01-14] MEDS: ACETYLCYSTEINE 20% 200MG/ML 4 ML VIAL *FOR ORAL / INH USE ONLY NEB SCH ×4 (08:51→20:01)
--- NOTE | 2020-01-14 10:38 | PN ---
Progress Note, Physician Chief Complaint: J tube dislodged Multiple decubitus Sepsis History of Present Illness: This is a 69 y/o male from [facility] with a significant PMHx of Cerebral Palsy, Intellectual Disabilities, Parkinson's Disease, Chronic Respiratory Failure s/p trach-vent dependent, COPD, J-tube (for feeds), and G tube (for decompression), recently admitted with PNA, Sepsis and found to have C. diff + VRE. Presents to the ED via ambulance for J-tube displacement. Pt also has multiple stage 4 + unstageable decubetii being locally treated upon discharge. Started on Meropenem due to low grade fever + leukocytosis. J tube re-inserted by IR Tolerating TF - Current Medication List Current Medications: Active Medications Acetaminophen (Tylenol Oral Solution -) 650 mg GT Q6H PRN PRN Reason: fever Last Admin: 01/14/20 03:29 Dose: 650 mg Documented by: Acetylcysteine (Mucomyst 20 Oral / Inh Use Only*) 200 mg NEB RQID [facility] Last Admin: 01/14/20 08:51 Dose: 200 mg Documented by: Albuterol Sulfate (Ventolin 0.083% Nebulizer Soln -) 1 amp NEB RQID [facility] Last Admin: 01/14/20 08:50 Dose: 1 amp Documented by: Amino Acids (Prosource No Carb Liquid Pkt) 30 ml GT DAILY@0800 [facility] Last Admin: 01/13/20 09:29 Dose: 30 ml Documented by: Ascorbic Acid (Vitamin C Oral Solution -) 500 mg GT BID [facility] Last Admin: 01/13/20 21:10 Dose: 500 mg Documented by: Collagenase (Santyl -) 1 applic TP DAILY [facility]; Protocol Last Admin: 01/13/20 10:34 Dose: 1 applic Documented by: Famotidine (Pepcid) 20 mg PEG DAILY [facility] Last Admin: 01/13/20 09:31 Dose: 20 mg Documented by: Ferrous Sulfate (Feosol) 300 mg GT BID [facility] Last Admin: 01/13/20 21:10 Dose: 300 mg Documented by: Fluconazole (Diflucan 40mg/Ml Suspension -) 100 mg GT DAILY [facility] Last Admin: 01/13/20 09:30 Dose: 100 mg Documented by: Meropenem 1 gm/ Dextrose 100 mls @ 200 mls/hr IVPB Q8H-IV [facility] Last Admin: 01/14/20 01:15 Dose: 200 mls/hr Documented by: Lactobacillus Acidophilus (Bacid -) 1 tab GT DAILY [facility] Last Admin: 01/13/20 09:29 Dose: 1 tab Documented by: Multivitamins/Minerals (Certavite-Antioxidant Liquid) 15 ml GT DAILY [facility] Last Admin: 01/13/20 09:30 Dose: 15 ml Documented by: Nystatin (Mycostatin Ointment -) 1 applic TP BID [facility] Last Admin: 01/13/20 21:11 Dose: 1 applic Documented by: Nystatin (Nystop Powder -) 1 applic TP BID [facility] Last Admin: 01/13/20 21:11 Dose: 1 applic Documented by: Triamcinolone Acetonide (Aristocort 0.5% Ointment -) 1 applic TP BID [facility] Last Admin: 01/13/20 21:11 Dose: 1 applic Documented by: Vancomycin HCl (Vancomycin Oral Solution) 125 mg GT Q6HPO [facility] Last Admin: 01/14/20 05:14 Dose: 125 mg Documented by: - Objective Vital Signs: Vital Signs Temperature 98.1 F 01/14/20 08:19 Pulse Rate 93 H 01/14/20 06:00 Respiratory Rate 19 01/14/20 08:48 Blood Pressure 92/44 L 01/14/20 08:19 O2 Sat by Pulse Oximetry (%) 100 01/14/20 08:48 Constitutional: Yes: No Distress, Calm, Cachectic Cardiovascular: Yes: Regular Rate and Rhythm Respiratory: Yes: Regular, Mechanically Ventilated, Rhonchi (diffuse) Gastrointestinal: Yes: Normal Bowel Sounds, Soft Genitourinary: Yes: Maravilla Present Musculoskeletal: Yes: Muscle Weakness Extremities: Yes: Other (contracted) Edema: Yes (Generalized) Peripheral Pulses WNL: Yes Integumentary: Yes: Pressure Ulcer Wound/Incision: Yes: Dressing Dry and Intact Labs: CBC, BMP 01/11/20 08:54 01/11/20 08:54 Problem List - Problems (1) Dislodged jejunostomy tube Assessment/Plan: -J tube replaced by IR -Tolerating TF Promote at 40 cc/hr, increase it by 10 cc Q6H with goal rate of 6 0cc/hr+ h20 15 cc/hr Problems reviewed: Yes Code(s): T85.528A - DISPLACEMENT OF GASTROINTESTINAL PROSTH DEV/GRFT, INIT (2) C. difficile diarrhea Assessment/Plan: -Restart PO Vanco Q6H -Contact isolation Problems reviewed: Yes Code(s): A04.72 - ENTEROCOLITIS D/T CLOSTRIDIUM DIFFICILE, NOT SPCF RECUR (3) Chronic respiratory failure Assessment/Plan: -mech vent -Pulmonary consult -Not a candidate for weaning at this time Problems reviewed: Yes Code(s): J96.10 - CHRONIC RESPIRATORY FAILURE, UNSP W HYPOXIA OR HYPERCAPNIA Qualifiers: Respiratory failure complication: hypoxia and hypercapnia Qualified Code (s): J96.11 - Chronic respiratory failure with hypoxia; J96.12 - Chronic respiratory failure with hypercapnia (4) Functional quadriplegia Problems reviewed: Yes Code(s): R53.2 - FUNCTIONAL QUADRIPLEGIA (5) Severe malnutrition Assessment/Plan: -Prosource BID -Multivitamin -Vit C Problems reviewed: Yes Code(s): E43 - UNSPECIFIED SEVERE PROTEIN-CALORIE MALNUTRITION (6) Decubital ulcer Assessment/Plan: -Seen by Plastic surgery -Overall poor prognosis -Local wound care -Meropenem IV -ID consult Problems reviewed: Yes Code(s): L89.90 - PRESSURE ULCER OF UNSPECIFIED SITE, UNSPECIFIED STAGE (7) Anemia Assessment/Plan: -Chronic, stable -TAM -Ferrous sulfate BID Problems reviewed: Yes Code(s): D64.9 - ANEMIA, UNSPECIFIED Qualifiers: Assessment/Plan See problem list
[2020-01-14] MEDS: ASCORBIC ACID 500 MG/5 ML GT SCH ×2 (12:18→21:27)
[2020-01-14] MEDS: AMINO ACIDS/PROTEIN HYDROLYS 30 ML LIQUID.PKT GT SCH (12:18)
[2020-01-14] MEDS: FERROUS SO4 300 MG/5 ML ORAL SOLN UNIT DOSE CUPS GT SCH ×2 (12:19→21:27)
[2020-01-14] MEDS: FLUCONAZOLE 40 MG/ML SUSPENSION GT SCH (12:19)
[2020-01-14] MEDS: MULTIVIT-MINERALS ORAL LIQUID GT SCH (12:20)
[2020-01-14] MEDS: TRIAMCINOLONE ACET 0.5% OINT 15 GM TUBE TP SCH ×2 (12:21→21:28)
[2020-01-14] MEDS: FAMOTIDINE 40 MG/5 ML ORAL SUSPENSION PEG SCH (12:22)
[2020-01-14] MEDS: COLLAGENASE CLOSTRIDIUM HIST. 30 GRAMS TUBE TP SCH (12:22)
[2020-01-14] MEDS: NYSTATIN POWDER 100,000 UNITS/GM - 15 GM TOPICAL POWDER TP SCH ×2 (12:22→21:27)
[2020-01-14] MEDS: LACTOBACILLUS ACIDOPHILUS 1 TABLET GT SCH (12:23)
[2020-01-14] MEDS: NYSTATIN 100000 UNIT/GM TOPICAL OINTMENT 15 GM TUBE TP SCH ×2 (12:23→21:28)
--- NOTE | 2020-01-14 13:16 | PN ---
Progress Note (short form) - Note Progress Note: No change in overall condition. NAD on AC Mode of vent. No acute events overnight. Intake & Output 01/11/20 01/12/20 01/13/20 01/14/20 23:59 23:59 23:59 23:59 Intake Total 4431 622 6105 960 Output Total 400 700 725 150 Balance 749 253 5855 810 Weight 100 lb Last Vital Signs Temp Pulse Resp BP Pulse Ox 98.1 F 93 H 15 92/44 L 95 01/14/20 08:19 01/14/20 06:00 01/14/20 12:07 01/14/20 08:19 01/14/20 12:07 Active Medications Acetaminophen (Tylenol Oral Solution -) 650 mg GT Q6H PRN PRN Reason: fever Last Admin: 01/14/20 03:29 Dose: 650 mg Documented by: Acetylcysteine (Mucomyst 20 Oral / Inh Use Only*) 200 mg NEB RQID [facility] Last Admin: 01/14/20 12:22 Dose: 200 mg Documented by: Albuterol Sulfate (Ventolin 0.083% Nebulizer Soln -) 1 amp NEB RQID [facility] Last Admin: 01/14/20 12:22 Dose: 1 amp Documented by: Amino Acids (Prosource No Carb Liquid Pkt) 30 ml GT DAILY@0800 [facility] Last Admin: 01/14/20 12:18 Dose: 30 ml Documented by: Ascorbic Acid (Vitamin C Oral Solution -) 500 mg GT BID [facility] Last Admin: 01/14/20 12:18 Dose: 500 mg Documented by: Collagenase (Santyl -) 1 applic TP DAILY [facility]; Protocol Last Admin: 01/14/20 12:22 Dose: 1 applic Documented by: Famotidine (Pepcid) 20 mg PEG DAILY [facility] Last Admin: 01/14/20 12:22 Dose: 20 mg Documented by: Ferrous Sulfate (Feosol) 300 mg GT BID [facility] Last Admin: 01/14/20 12:19 Dose: 300 mg Documented by: Fluconazole (Diflucan 40mg/Ml Suspension -) 100 mg GT DAILY [facility] Last Admin: 01/14/20 12:19 Dose: 100 mg Documented by: Meropenem 1 gm/ Dextrose 100 mls @ 200 mls/hr IVPB Q8H-IV [facility] Last Admin: 01/14/20 12:22 Dose: 200 mls/hr Documented by: Lactobacillus Acidophilus (Bacid -) 1 tab GT DAILY [facility] Last Admin: 01/14/20 12:23 Dose: 1 tab Documented by: Multivitamins/Minerals (Certavite-Antioxidant Liquid) 15 ml GT DAILY [facility] Last Admin: 01/14/20 12:20 Dose: 15 ml Documented by: Nystatin (Mycostatin Ointment -) 1 applic TP BID [facility] Last Admin: 01/14/20 12:23 Dose: 1 applic Documented by: Nystatin (Nystop Powder -) 1 applic TP BID [facility] Last Admin: 01/14/20 12:22 Dose: 1 applic Documented by: Triamcinolone Acetonide (Aristocort 0.5% Ointment -) 1 applic TP BID [facility] Last Admin: 01/14/20 12:21 Dose: 1 applic Documented by: Vancomycin HCl (Vancomycin Oral Solution) 125 mg GT Q6HPO [facility] Last Admin: 01/14/20 12:22 Dose: 125 mg Documented by: Constitutional: Yes: Cachectic, Vented Eyes: Yes: WNL HENT: Yes: WNL Neck: Yes: Supple (TRACH) Cardiovascular: Yes: Regular Rate and Rhythm, S1, S2 Respiratory: Yes: Diminished, Rhonchi Gastrointestinal: Yes: Normal Bowel Sounds, Soft Extremities: Yes: Other (CONTRACTED) Labs: Laboratory Results - last 24 hr 01/14/20 02:04 POC Glucometer 110 Problem List - Problems (1) Anemia Code(s): D64.9 - ANEMIA, UNSPECIFIED Qualifiers: (2) Atelectasis Code(s): J98.11 - ATELECTASIS (3) COPD (chronic obstructive pulmonary disease) Code(s): J44.9 - CHRONIC OBSTRUCTIVE PULMONARY DISEASE, UNSPECIFIED Qualifiers: (4) Cerebral palsy Code(s): G80.9 - CEREBRAL PALSY, UNSPECIFIED Qualifiers: (5) Chronic respiratory failure Code(s): J96.10 - CHRONIC RESPIRATORY FAILURE, UNSP W HYPOXIA OR HYPERCAPNIA Qualifiers: Respiratory failure complication: hypoxia and hypercapnia Qualified Code(s): J96.11 - Chronic respiratory failure with hypoxia; J96.12 - Chronic respiratory failure with hypercapnia (6) Functional quadriplegia Code(s): R53.2 - FUNCTIONAL QUADRIPLEGIA (7) G tube feedings Code(s): Z93.1 - GASTROSTOMY STATUS (8) Malfunctioning jejunostomy tube Code(s): K94.13 - ENTEROSTOMY MALFUNCTION (9) Parkinson disease Code(s): G20 - PARKINSON'S DISEASE (10) Severe malnutrition Code(s): E43 - UNSPECIFIED SEVERE PROTEIN-CALORIE MALNUTRITION (11) Dislodged jejunostomy tube Code(s): T85.528A - DISPLACEMENT OF GASTROINTESTINAL PROSTH DEV/GRFT, INIT Assessment/Plan Chronic Respiratory Failure Suspect Right Atelectasis from mucous plugging improved COPD Cerebral Palsy Parkinsons Anemia - antibiotics per ID - chest PT - mucomyst/albuterol nebs - titrate Fio2 to keep SpO2 >90% - DVT prophylaxis Dr Alexandre
--- NOTE | 2020-01-14 13:53 | PN ---
Progress Note, Physician Chief Complaint: AWAKE, POORLY RESPONSIVE LOW GRADE TEMP WBC IMPROVED WNL BC (-) SPUTUM C/S MIXED - Current Medication List Current Medications: Active Medications Acetaminophen (Tylenol Oral Solution -) 650 mg GT Q6H PRN PRN Reason: fever Last Admin: 01/14/20 03:29 Dose: 650 mg Documented by: Acetylcysteine (Mucomyst 20 Oral / Inh Use Only*) 200 mg NEB RQID [facility] Last Admin: 01/14/20 12:22 Dose: 200 mg Documented by: Albuterol Sulfate (Ventolin 0.083% Nebulizer Soln -) 1 amp NEB RQID [facility] Last Admin: 01/14/20 12:22 Dose: 1 amp Documented by: Amino Acids (Prosource No Carb Liquid Pkt) 30 ml GT DAILY@0800 [facility] Last Admin: 01/14/20 12:18 Dose: 30 ml Documented by: Ascorbic Acid (Vitamin C Oral Solution -) 500 mg GT BID [facility] Last Admin: 01/14/20 12:18 Dose: 500 mg Documented by: Collagenase (Santyl -) 1 applic TP DAILY [facility]; Protocol Last Admin: 01/14/20 12:22 Dose: 1 applic Documented by: Famotidine (Pepcid) 20 mg PEG DAILY [facility] Last Admin: 01/14/20 12:22 Dose: 20 mg Documented by: Ferrous Sulfate (Feosol) 300 mg GT BID [facility] Last Admin: 01/14/20 12:19 Dose: 300 mg Documented by: Fluconazole (Diflucan 40mg/Ml Suspension -) 100 mg GT DAILY [facility] Last Admin: 01/14/20 12:19 Dose: 100 mg Documented by: Meropenem 1 gm/ Dextrose 100 mls @ 200 mls/hr IVPB Q8H-IV [facility] Last Admin: 01/14/20 12:22 Dose: 200 mls/hr Documented by: Lactobacillus Acidophilus (Bacid -) 1 tab GT DAILY [facility] Last Admin: 01/14/20 12:23 Dose: 1 tab Documented by: Multivitamins/Minerals (Certavite-Antioxidant Liquid) 15 ml GT DAILY [facility] Last Admin: 01/14/20 12:20 Dose: 15 ml Documented by: Nystatin (Mycostatin Ointment -) 1 applic TP BID [facility] Last Admin: 01/14/20 12:23 Dose: 1 applic Documented by: Nystatin (Nystop Powder -) 1 applic TP BID [facility] Last Admin: 01/14/20 12:22 Dose: 1 applic Documented by: Triamcinolone Acetonide (Aristocort 0.5% Ointment -) 1 applic TP BID [facility] Last Admin: 01/14/20 12:21 Dose: 1 applic Documented by: Vancomycin HCl (Vancomycin Oral Solution) 125 mg GT Q6HPO [facility] Last Admin: 01/14/20 12:22 Dose: 125 mg Documented by: - Objective Vital Signs: Vital Signs Temperature 98.1 F 01/14/20 08:19 Pulse Rate 93 H 01/14/20 06:00 Respiratory Rate 15 01/14/20 12:07 Blood Pressure 92/44 L 01/14/20 08:19 O2 Sat by Pulse Oximetry (%) 95 01/14/20 12:07 Constitutional: Yes: No Distress Eyes: Yes: Conjunctiva Clear Cardiovascular: Yes: Regular Rate and Rhythm, S1, S2 Respiratory: Yes: Diminished Gastrointestinal: Yes: Normal Bowel Sounds, Soft. No: Tenderness Extremities: Yes: Other (+ CONTRACTURES) Labs: CBC, BMP 01/11/20 08:54 01/11/20 08:54 Assessment/Plan FEVER CHRONIC RESP FAILURE R/O PNEUMONIA COPD PARKINSONISM HX MDR ORGANISMS SUBSTITUTE AUGMENTIN 500MG JT Q12H X 48HR CONTACT PRECAUTIONS
[2020-01-15] MEDS ORDERED: MEROPENEM 1 GM VIAL (RESTRICTED TO ID) IVPB ONE ×2 (01:44→09:04)
[2020-01-15] MEDS ORDERED: DEXTROSE 5%-WATER 100 ML IVPB ONE ×2 (01:44→09:05)
[2020-01-15] MEDS: MEROPENEM 1 GM in DEXTROSE 5%-WATER 100 ML IVPB SCH ×2 (02:20→10:06)
[2020-01-15] MEDS: VANCOMYCIN 250 MG/5 ML ORAL SOLUTION GT SCH ×2 (05:47→11:43)
[2020-01-15 07:01] VITALS: BP 116/54; PULSE 103; TEMP 98.3
--- NOTE | 2020-01-15 07:51 | PN ---
Progress Note, Physician History of Present Illness: PULMONARY NO CHANGE,POORLY RESPONSIVE ON VENT SURRORT AC MODE - Current Medication List Current Medications: Active Medications Acetaminophen (Tylenol Oral Solution -) 650 mg GT Q6H PRN PRN Reason: fever Last Admin: 01/14/20 21:37 Dose: 650 mg Documented by: Acetylcysteine (Mucomyst 20 Oral / Inh Use Only*) 200 mg NEB RQID [facility] Last Admin: 01/14/20 20:01 Dose: 200 mg Documented by: Albuterol Sulfate (Ventolin 0.083% Nebulizer Soln -) 1 amp NEB RQID [facility] Last Admin: 01/14/20 20:01 Dose: 1 amp Documented by: Amino Acids (Prosource No Carb Liquid Pkt) 30 ml GT DAILY@0800 [facility] Last Admin: 01/14/20 12:18 Dose: 30 ml Documented by: Ascorbic Acid (Vitamin C Oral Solution -) 500 mg GT BID [facility] Last Admin: 01/14/20 21:27 Dose: 500 mg Documented by: Collagenase (Santyl -) 1 applic TP DAILY [facility]; Protocol Last Admin: 01/14/20 12:22 Dose: 1 applic Documented by: Famotidine (Pepcid) 20 mg PEG DAILY [facility] Last Admin: 01/14/20 12:22 Dose: 20 mg Documented by: Ferrous Sulfate (Feosol) 300 mg GT BID [facility] Last Admin: 01/14/20 21:27 Dose: 300 mg Documented by: Fluconazole (Diflucan 40mg/Ml Suspension -) 100 mg GT DAILY [facility] Last Admin: 01/14/20 12:19 Dose: 100 mg Documented by: Meropenem 1 gm/ Dextrose 100 mls @ 200 mls/hr IVPB Q8H-IV [facility] Last Admin: 01/15/20 02:20 Dose: 200 mls/hr Documented by: Lactobacillus Acidophilus (Bacid -) 1 tab GT DAILY [facility] Last Admin: 01/14/20 12:23 Dose: 1 tab Documented by: Multivitamins/Minerals (Certavite-Antioxidant Liquid) 15 ml GT DAILY [facility] Last Admin: 01/14/20 12:20 Dose: 15 ml Documented by: Nystatin (Mycostatin Ointment -) 1 applic TP BID [facility] Last Admin: 01/14/20 21:28 Dose: 1 applic Documented by: Nystatin (Nystop Powder -) 1 applic TP BID [facility] Last Admin: 10/01/20 21:27 Dose: 1 applic Documented by: Triamcinolone Acetonide (Aristocort 0.5% Ointment -) 1 applic TP BID [facility] Last Admin: 01/14/20 21:28 Dose: 1 applic Documented by: Vancomycin HCl (Vancomycin Oral Solution) 125 mg GT Q6HPO [facility] Last Admin: 01/15/20 05:47 Dose: 125 mg Documented by: - Objective Vital Signs: Vital Signs Temperature 98.3 F 01/15/20 06:00 Pulse Rate 103 H 01/15/20 06:00 Respiratory Rate 18 01/15/20 06:00 Blood Pressure 116/54 L 01/15/20 06:00 O2 Sat by Pulse Oximetry (%) 100 01/15/20 06:00 Constitutional: Yes: Cachectic, Other (POORLY RESPONSIVE) Eyes: Yes: WNL HENT: Yes: WNL Neck: Yes: Supple (TRACH) Cardiovascular: Yes: Regular Rate and Rhythm, S1, S2 Respiratory: Yes: Rhonchi (FEW RHONCHI) Gastrointestinal: Yes: Normal Bowel Sounds, Soft Extremities: Yes: Other (CONTRACTED) Edema: No Labs: CBC, BMP Problem List - Problems (1) Anemia Code(s): D64.9 - ANEMIA, UNSPECIFIED Qualifiers: (2) Atelectasis Code(s): J98.11 - ATELECTASIS (3) COPD (chronic obstructive pulmonary disease) Code(s): J44.9 - CHRONIC OBSTRUCTIVE PULMONARY DISEASE, UNSPECIFIED Qualifiers: (4) Cerebral palsy Code(s): G80.9 - CEREBRAL PALSY, UNSPECIFIED Qualifiers: (5) Chronic respiratory failure Code(s): J96.10 - CHRONIC RESPIRATORY FAILURE, UNSP W HYPOXIA OR HYPERCAPNIA Qualifiers: Respiratory failure complication: hypoxia and hypercapnia Qualified Code(s): J96.11 - Chronic respiratory failure with hypoxia; J96.12 - Chronic respiratory failure with hypercapnia (6) Functional quadriplegia Code(s): R53.2 - FUNCTIONAL QUADRIPLEGIA (7) G tube feedings Code(s): Z93.1 - GASTROSTOMY STATUS (8) Malfunctioning jejunostomy tube Code(s): K94.13 - ENTEROSTOMY MALFUNCTION (9) Parkinson disease Code(s): G20 - PARKINSON'S DISEASE (10) Severe malnutrition Code(s): E43 - UNSPECIFIED SEVERE PROTEIN-CALORIE MALNUTRITION (11) Dislodged jejunostomy tube Code(s): T85.528A - DISPLACEMENT OF GASTROINTESTINAL PROSTH DEV/GRFT, INIT Assessment/Plan A/P Chronic Respiratory Failure Suspect Right Atelectasis from mucous plugging improved COPD Cerebral Palsy Parkinsons Anemia - chest PT - mucomyst/albuterol nebs - titrate Fio2 to keep SpO2 >90% - DVT prophylaxis DR HERNANDEZ
[2020-01-15] MEDS: ALBUTEROL SO4 0.083% IH SOL 2.5 MG/3 ML VIAL.NEB. NEB SCH ×2 (08:00→11:46)
[2020-01-15] MEDS: ACETYLCYSTEINE 20% 200MG/ML 4 ML VIAL *FOR ORAL / INH USE ONLY NEB SCH ×2 (08:45→11:45)
[2020-01-15] MEDS ORDERED: PT OWN MED DRAWER 7, Y5N ONE (09:06)
[2020-01-15] MEDS: NYSTATIN POWDER 100,000 UNITS/GM - 15 GM TOPICAL POWDER TP SCH (10:06)
[2020-01-15] MEDS: NYSTATIN 100000 UNIT/GM TOPICAL OINTMENT 15 GM TUBE TP SCH (10:06)
[2020-01-15] MEDS: FERROUS SO4 300 MG/5 ML ORAL SOLN UNIT DOSE CUPS GT SCH (10:06)
[2020-01-15] MEDS: FAMOTIDINE 40 MG/5 ML ORAL SUSPENSION PEG SCH (10:06)
[2020-01-15] MEDS: COLLAGENASE CLOSTRIDIUM HIST. 30 GRAMS TUBE TP SCH (10:06)
[2020-01-15] MEDS: LACTOBACILLUS ACIDOPHILUS 1 TABLET GT SCH (10:07)
[2020-01-15] MEDS: FLUCONAZOLE 40 MG/ML SUSPENSION GT SCH (10:07)
[2020-01-15] MEDS: TRIAMCINOLONE ACET 0.5% OINT 15 GM TUBE TP SCH (10:07)
[2020-01-15] MEDS: AMINO ACIDS/PROTEIN HYDROLYS 30 ML LIQUID.PKT GT SCH (10:07)
--- NOTE | 2020-01-15 11:09 | PN ---
Progress Note, Physician Chief Complaint: J tube dislodged Multiple decubitus Sepsis History of Present Illness: This is a 69 y/o male from [facility] with a significant PMHx of Cerebral Palsy, Intellectual Disabilities, Parkinson's Disease, Chronic Respiratory Failure s/p trach-vent dependent, COPD, J-tube (for feeds), and G tube (for decompression), recently admitted with PNA, Sepsis and found to have C. diff + VRE. Presents to the ED via ambulance for J-tube displacement. Pt also has multiple stage 4 + unstageable decubetii being locally treated upon discharge. Started on Meropenem due to low grade fever + leukocytosis. J tube re-inserted by IR Tolerating TF Cleared by ID to return to SNF - Current Medication List Current Medications: Active Medications Acetaminophen (Tylenol Oral Solution -) 650 mg GT Q6H PRN PRN Reason: fever Last Admin: 01/14/20 21:37 Dose: 650 mg Documented by: Acetylcysteine (Mucomyst 20 Oral / Inh Use Only*) 200 mg NEB RQID [facility] Last Admin: 01/15/20 08:45 Dose: 200 mg Documented by: Albuterol Sulfate (Ventolin 0.083% Nebulizer Soln -) 1 amp NEB RQID [facility] Last Admin: 01/15/20 08:00 Dose: 1 amp Documented by: Amino Acids (Prosource No Carb Liquid Pkt) 30 ml GT DAILY@0800 [facility] Last Admin: 01/15/20 10:07 Dose: 30 ml Documented by: Ascorbic Acid (Vitamin C Oral Solution -) 500 mg GT BID [facility] Last Admin: 01/14/20 21:27 Dose: 500 mg Documented by: Collagenase (Santyl -) 1 applic TP DAILY [facility]; Protocol Last Admin: 01/15/20 10:06 Dose: 1 applic Documented by: Famotidine (Pepcid) 20 mg PEG DAILY [facility] Last Admin: 01/15/20 10:06 Dose: 20 mg Documented by: Ferrous Sulfate (Feosol) 300 mg GT BID [facility] Last Admin: 01/15/20 10:06 Dose: 300 mg Documented by: Fluconazole (Diflucan 40mg/Ml Suspension -) 100 mg GT DAILY [facility] Last Admin: 01/15/20 10:07 Dose: 100 mg Documented by: Meropenem 1 gm/ Dextrose 100 mls @ 200 mls/hr IVPB Q8H-IV [facility] Last Admin: 01/15/20 10:06 Dose: 200 mls/hr Documented by: Lactobacillus Acidophilus (Bacid -) 1 tab GT DAILY [facility] Last Admin: 01/15/20 10:07 Dose: 1 tab Documented by: Multivitamins/Minerals (Certavite-Antioxidant Liquid) 15 ml GT DAILY [facility] Last Admin: 01/14/20 12:20 Dose: 15 ml Documented by: Nystatin (Mycostatin Ointment -) 1 applic TP BID [facility] Last Admin: 01/15/20 10:06 Dose: 1 applic Documented by: Nystatin (Nystop Powder -) 1 applic TP BID [facility] Last Admin: 01/15/20 10:06 Dose: 1 applic Documented by: Triamcinolone Acetonide (Aristocort 0.5% Ointment -) 1 applic TP BID [facility] Last Admin: 01/15/20 10:07 Dose: 1 applic Documented by: Vancomycin HCl (Vancomycin Oral Solution) 125 mg GT Q6HPO [facility] Last Admin: 01/15/20 05:47 Dose: 125 mg Documented by: - Objective Vital Signs: Vital Signs Temperature 98.3 F 01/15/20 06:00 Pulse Rate 103 H 01/15/20 06:00 Respiratory Rate 19 01/15/20 09:23 Blood Pressure 116/54 L 01/15/20 06:00 O2 Sat by Pulse Oximetry (%) 100 01/15/20 09:23 Constitutional: Yes: Well Nourished, No Distress, Calm Cardiovascular: Yes: Regular Rate and Rhythm Respiratory: Yes: Regular, CTA Bilaterally Gastrointestinal: Yes: Normal Bowel Sounds, Soft Genitourinary: Yes: Maravilla Present Musculoskeletal: Yes: Muscle Weakness Extremities: Yes: Other (contracted) Edema: Yes (generalized edema) Peripheral Pulses WNL: No Neurological: Yes: Pre-Existing Deficit Labs: CBC, BMP 01/11/20 08:54 01/11/20 08:54 Problem List - Problems (1) Dislodged jejunostomy tube Assessment/Plan: -J tube replaced by IR -Tolerating TF Promote at 40 cc/hr, increase it by 10 cc Q6H with goal rate of 60cc/hr+ h20 15 cc/hr Problems reviewed: Yes Code(s): T85.528A - DISPLACEMENT OF GASTROINTESTINAL PROSTH DEV/GRFT, INIT (2) C. difficile diarrhea Assessment/Plan: -PO Vanco Q6H x 1 week, then 125 mg once a day, then 125 mg every other day to complete 4 weeks in total -Contact isolation Problems reviewed: Yes Code(s): A04.72 - ENTEROCOLITIS D/T CLOSTRIDIUM DIFFICILE, NOT SPCF RECUR (3) Chronic respiratory failure Assessment/Plan: -mech vent -Pulmonary consult -Not a candidate for weaning at this time Problems reviewed: Yes Code(s): J96.10 - CHRONIC RESPIRATORY FAILURE, UNSP W HYPOXIA OR HYPERCAPNIA Qualifiers: Respiratory failure complication: hypoxia and hypercapnia Qualified Code(s): J96.11 - Chronic respiratory failure with hypoxia; J96.12 - Chronic respiratory failure with hypercapnia (4) Functional quadriplegia Problems reviewed: Yes Code(s): R53.2 - FUNCTIONAL QUADRIPLEGIA (5) Severe malnutrition Assessment/Plan: -Prosource BID -Multivitamin -Vit C Problems reviewed: Yes Code(s): E43 - UNSPECIFIED SEVERE PROTEIN-CALORIE MALNUTRITION (6) Decubital ulcer Assessment/Plan: -Seen by Plastic surgery -Overall poor prognosis -Local wound care -Meropenem IV---> changed to augmentin bid x 48 hours -ID consult Problems reviewed: Yes Code(s): L89.90 - PRESSURE ULCER OF UNSPECIFIED SITE, UNSPECIFIED STAGE (7) Anemia Assessment/Plan: -Chronic, stable -TAM -Ferrous sulfate BID Problems reviewed: Yes Code(s): D64.9 - ANEMIA, UNSPECIFIED Qualifiers: Assessment/Plan See problem list
--- NOTE | 2020-01-15 11:13 | DS ---
Physical Examination Vital Signs: Vital Signs Temperature 98.3 F 01/15/20 06:00 Pulse Rate 103 H 01/15/20 06:00 Respiratory Rate 19 01/15/20 09:23 Blood Pressure 116/54 L 01/15/20 06:00 O2 Sat by Pulse Oximetry (%) 100 01/15/20 09:23 Findings/Remarks: This is a 69 y/o male from [facility] with a significant PMHx of Cerebral Palsy, Intellectual Disabilities, Parkinson's Disease, Chronic Respiratory Failure s/p trach-vent dependent, COPD, J-tube (for feeds), and G tube (for decompression), recently admitted with PNA, Sepsis and found to have C. diff + VRE. Presents to the ED via ambulance for J-tube displacement. Pt also has multiple stage 4 + unstageable decubetii being locally treated upon discharge. Started on Meropenem due to low grade fever + leukocytosis. J tube re-inserted by IR Tolerating TF Cleared by ID to return to SNF (1) Dislodged jejunostomy tube Assessment/Plan: -J tube replaced by IR -Tolerating TF Promote at 40 cc/hr, increase it by 10 cc Q6H with goal rate of 60cc/hr+ h20 15 cc/hr Problems reviewed: Yes Code(s): T85.528A - DISPLACEMENT OF GASTROINTESTINAL PROSTH DEV/GRFT, INIT (2) C. difficile diarrhea Assessment/Plan: -PO Vanco Q6H x 1 week, then 125 mg once a day, then 125 mg every other day to complete 4 weeks in total -Contact isolation Problems reviewed: Yes Code(s): A04.72 - ENTEROCOLITIS D/T CLOSTRIDIUM DIFFICILE, NOT SPCF RECUR (3) Chronic respiratory failure Assessment/Plan: -mech vent -Pulmonary consult -Not a candidate for weaning at this time Problems reviewed: Yes Code(s): J96.10 - CHRONIC RESPIRATORY FAILURE, UNSP W HYPOXIA OR HYPERCAPNIA Qualifiers: Respiratory failure complication: hypoxia and hypercapnia Qualified Code(s): J96.11 - Chronic respiratory failure with hypoxia; J96.12 - Chronic respiratory failure with hypercapnia (4) Functional quadriplegia Problems reviewed: Yes Code(s): R53.2 - FUNCTIONAL QUADRIPLEGIA (5) Severe malnutrition Assessment/Plan: -Prosource BID -Multivitamin -Vit C Problems reviewed: Yes Code(s): E43 - UNSPECIFIED SEVERE PROTEIN-CALORIE MALNUTRITION (6) Decubital ulcer Assessment/Plan: -Seen by Plastic surgery -Overall poor prognosis -Local wound care -Meropenem IV---> changed to augmentin bid x 1 week -ID consult Problems reviewed: Yes Code(s): L89.90 - PRESSURE ULCER OF UNSPECIFIED SITE, UNSPECIFIED STAGE (7) Anemia Assessment/Plan: -Chronic, stable -TAM -Ferrous sulfate BID Problems reviewed: Yes Code(s): D64.9 - ANEMIA, UNSPECIFIED Qualifiers: Assessment/Plan See problem list Constitutional: Yes: No Distress, Calm, Cachectic Cardiovascular: Yes: Regular Rate and Rhythm Respiratory: Yes: Regular, CTA Bilaterally, Mechanically Ventilated Gastrointestinal: Yes: Normal Bowel Sounds, Soft Renal/: Yes: Maravilla Present Musculoskeletal: Yes: Muscle Weakness Extremities: Yes: Other (contracted) Edema: Yes (generalized) Peripheral Pulses WNL: Yes Integumentary: Yes: Pressure Ulcer Wound/Incision: Yes: Dressing Dry and Intact Neurological: Yes: Pre-Existing Deficit Labs: CBC, BMP 01/11/20 08:54 01/11/20 08:54 Discharge Summary Problems reviewed: Yes Reason For Visit: DISLODGED JEJUNOSTOMY TUBE Current Active Problems Dislodged jejunostomy tube (Acute) Encounter for screening laboratory testing for COVID-19 virus (Acute) Hypocalcemia (Acute) Condition: Stable - Instructions Referrals: Nicola Gomez MD [Primary Care Provider] - Disposition: [facility] FACILITY - Home Medications Comprehensive Discharge Medication List: Ambulatory Orders Famotidine [Pepcid] 20 mg PO DAILY 10/11/19 L. Acidophilus/Pectin, [place] [Acidophilus Capsule] 1 each PO DAILY 10/11/19 Multivit-Minerals [Certavite-Antioxidant Liquid] 15 ml PO DAILY 10/11/19 Acetaminophen Oral Solution [Tylenol Oral Solution -] 650 mg PO Q6H PRN soln.oral 01/01/20 Amino Acids/Protein Hydrolys [Prosource No Carb Liquid Pkt] 30 ml GT DAILY@0800 packet 01/01/20 Ascorbic Acid [Vitamin C -] 500 mg PO BID tablet 01/01/20 Collagenase Clostridium Hist. [Santyl -] 1 applic TP DAILY tube 01/01/20 Fluconazole [Diflucan *Suspension* -] 100 mg PO DAILY 7 Days ml 01/01/20 Lactobacillus Acidophilus [Bacid -] 1 tab GT DAILY tab 01/01/20 Multivit-Minerals [Certavite-Antioxidant Liquid] 15 ml PO DAILY cup 01/01/20 Nystatin Ointment [Mycostatin Ointment -] 1 applic TP BID applic 01/01/20 Nystatin Powder [Nystop Powder -] 1 applic TP BID applic 01/01/20 Triamcinolone 0.5% Ointment [Aristocort 0.5% Ointment -] 1 applic TP BID tube 01/01/20 Vancomycin Oral Solution 125 mg PO Q6HPO 60 Days ml 01/01/20 Albuterol 0.083% Nebulizer [facility] [Ventolin 0.083% Nebulizer Soln -] 1 amp NEB RQID amp 01/15/20 Ferrous Sulfate [Feosol] 300 mg GT BID [facility] 01/15/20 Vancomycin Oral Solution 125 mg GT Q6HPO ml 01/15/20 Prescription Drug Monitoring Program (I-STOP) results: I-STOP reviewed and no issues identified
[2020-01-15] MEDS: MULTIVIT-MINERALS ORAL LIQUID GT SCH (11:44)
[2020-01-15] MEDS: ASCORBIC ACID 500 MG/5 ML GT SCH (11:44)
[2020-01-16] MEDS ORDERED: AMOX TR/POT CLAV 500MG/125MG TABLETS (FP) PO SCH (08:00)
== END 2020-01-15 14:48 | DRG 393 ==
LOC: JER 21:05 → JERBED 23:19 → J5S 01-09 13:59
PROVIDERS: ADMIT Internal Medicine; ATTEND Family Medicine
PROC: 5A1955Z Respiratory Ventilation, Greater than 96 Consecutive Hours (ICD-10-PCS; principal; 2020-01-08)
PROC: 0DHA3UZ Insertion of Feeding Device into Jejunum, Percutaneous Approach (ICD-10-PCS; 2020-01-08)
DX: K94.13 Enterostomy malfunction (principal); L89.224 Pressure ulcer of left hip, stage 4; L89.214 Pressure ulcer of right hip, stage 4; E43 Unspecified severe protein-calorie malnutrition; R53.2 Functional quadriplegia; Z68.1 Body mass index [BMI] 19.9 or less, adult; J96.11 Chronic respiratory failure with hypoxia; A04.72 Enterocolitis due to Clostridium difficile, not specified as recurrent; R64 Cachexia; J98.11 Atelectasis; J96.12 Chronic respiratory failure with hypercapnia; L89.152 Pressure ulcer of sacral region, stage 2; L89.142 Pressure ulcer of left lower back, stage 2; G20 Parkinson's disease; G80.9 Cerebral palsy, unspecified; Z93.0 Tracheostomy status; Z93.1 Gastrostomy status; Z93.4 Other artificial openings of gastrointestinal tract status; D64.9 Anemia, unspecified; J44.9 Chronic obstructive pulmonary disease, unspecified; D72.829 Elevated white blood cell count, unspecified; R50.9 Fever, unspecified
CPT/HCPCS: 36415; 49451; 71045-TC-FY; 80053; 81003; 82272; 82728; 82962; 83540; 83550; 85025; 85027; 87040; 87070; 87077; 87086; 87186; 87205; 93005; 93010; 94002; 94640; 99285-25; E0186; J0131; U0003

== ENCOUNTER 2020-03-04 09:19 | Inpatient (IN) | payer MEDICARE, OTHER ==
[2020-03-04] MEDS ORDERED: CEFEPIME HCL/D5W 1 GM/50 ML BAG IVPB ONE (09:42)
[2020-03-04] MEDS ORDERED: VANCOMYCIN 1 GM in D5W (PRE-DOCKED) 1,000 MG/250 ML IVPB ONE (09:42)
[2020-03-04] MEDS ORDERED: FLUCONAZOLE 100 MG/NS 50 ML IVPB ONE (09:42)
[2020-03-04] MEDS ORDERED: SODIUM CHLORIDE 0.9% 500 ML INFUS.BAG IV ONE (09:45)
[2020-03-04] MEDS ORDERED: VANCOMYCIN 1 GRAM (PRE-DOCKED) 1,000 MG/250 ML BAG IVPB ONE (09:57)
[2020-03-04] MEDS ORDERED: CEFEPIME 1 GM/100 ML BAG IVPB ONE (09:57)
[2020-03-04 10:42] LABS: BASO % 0.6 % (0-2.0); EOS % 2.2 % (0-4.5); HEMATOCRIT 18.4 % (35.4-49); LYMPH % 13.6 % (8-40); MCH 31.5 pg (25.7-33.7); MCHC 29.6 g/dl (32.0-35.9); MEAN CELL VOLUME 106.3 fl (80-96); MEAN PLT VOLUME 10.2 fl (7.5-11.1); MONO % 1.5 % (3.8-10.2); NEUT % 82.1 % (42.8-82.8); PLATELET COUNT 219 K/MM3 (134-434); RBC 1.73 M/mm3 (4.00-5.60); RDW 22.5 % (11.9-15.9); WHITE BLOOD COUNT 4.8 K/mm3 (4.0-10.0)
[2020-03-04] MEDS: NOREPINEPHRINE D5W PREMIX 16,000 MCG/500 ML BAG IVPB SCH (10:47)
[2020-03-04 10:52] LABS: HEMOGLOBIN 5.4 GM/dL (11.7-16.9)
[2020-03-04 10:53] LABS: INR 1.17 (0.83-1.09); PROTHROMBIN TIME (PATIENT) 14.1 SEC (9.7-13.0)
[2020-03-04 10:56] LABS: VENOUS PCO2 51.1 mmHg (38-52); VENOUS PH 7.319 (7.310-7.410)
[2020-03-04 11:06] LABS: POTASSIUM 4.7 mmol/L (3.5-5.1)
[2020-03-04 11:07] LABS: ALBUMIN 0.7 g/dl (3.4-5.0); CALCIUM 9.3 mg/dL (8.5-10.1)
[2020-03-04 11:11] LABS: CREATININE 2.2 mg/dL (0.55-1.3)
[2020-03-04 11:12] LABS: BILIRUBIN,TOTAL 0.2 mg/dL (0.2-1)
[2020-03-04 11:24] LABS: BLOOD UREA NITROGEN 106.4 mg/dL (7-18)
[2020-03-04 11:36] LABS: EPI CELLS 3 /uL (0-25.1); HYALINE CASTS 3 /uL (0-3.1); URINE APPEARANCE CLOUDY; URINE BACTERIA 9 /uL (0-1359); URINE BILIRUBIN 1+ (NEGATIVE); URINE COLOR DK YELLOW; URINE GLUCOSE (UA) NEGATIVE (NEGATIVE); URINE KETONE TRACE (NEGATIVE); URINE LEUK ESTERASE 3+ (NEGATIVE); URINE NITRITE NEGATIVE (NEGATIVE); URINE PROTEIN 1+ (NEGATIVE); URINE UROBILINOGEN 0.2 mg/dL (0.2-1.0); URINE WBC 1235 /uL (0-25.8)
[2020-03-04 11:38] LABS: URINE RBC 20.2 /uL (0-23.9)
[2020-03-04 11:53] LABS: YEAST NON SEEN (NEGATIVE)
[2020-03-04] MEDS ORDERED: LACTATED RINGERS SOLUTION 1,000 ML/1,000 ML INFUS.BAG IV SCH (12:15)
[2020-03-04 12:51] LABS: ANISOCYTOSIS 1+; MACROCYTOSIS 1+; PLATELET ESTIMATE NORMAL
[2020-03-04] MEDS ORDERED: LACTATED RINGERS SOLUTION 1000 ML INFUS.BAG IV ONE (13:27)
[2020-03-04] MEDS: VASOPRESSIN 40 UNITS in SODIUM CHLORIDE 98 ML IVPB SCH (14:26)
[2020-03-04] MEDS ORDERED: DEXTROSE 5%-WATER 100 ML IVPB ONE (18:29)
[2020-03-04] MEDS ORDERED: MEROPENEM 500 MG VIAL (RESTRICTED TO ID) IVPB ONE (18:29)
[2020-03-04] MEDS: MEROPENEM 500 MG in DEXTROSE 5%-WATER 100 ML IVPB SCH (18:31)
[2020-03-04] MEDS: MUPIROCIN 2% TOPICAL OINTMENT FOR DECOLONIZATION NS SCH ×2 (21:33→23:10)
[2020-03-04] MEDS: CHLORHEXIDINE GLUCONATE 4% CLEANSER FOR DECOLONIZATION TP SCH (21:33)
[2020-03-04] MEDS ORDERED: LACTATED RINGERS SOLUTION 1,000 ML/1,000 ML INFUS.BAG IV STA (21:38)
[2020-03-05 01:08] LABS: BASO % 0.4 % (0-2.0); EOS % 2.4 % (0-4.5); HEMATOCRIT 29.3 % (35.4-49); HEMOGLOBIN 9.1 GM/dL (11.7-16.9); LYMPH % 6.6 % (8-40); MCH 30.4 pg (25.7-33.7); MCHC 31.2 g/dl (32.0-35.9); MEAN CELL VOLUME 97.6 fl (80-96); MEAN PLT VOLUME 9.9 fl (7.5-11.1); NEUT % 89.6 % (42.8-82.8); PLATELET COUNT 184 K/MM3 (134-434); RDW 19.4 % (11.9-15.9); WHITE BLOOD COUNT 12.2 K/mm3 (4.0-10.0)
[2020-03-05 01:12] LABS: CALCIUM 8.6 mg/dL (8.5-10.1); POTASSIUM 4.2 mmol/L (3.5-5.1)
[2020-03-05 01:13] LABS: BLOOD UREA NITROGEN 89.3 mg/dL (7-18)
[2020-03-05 01:16] LABS: CREATININE 1.7 mg/dL (0.55-1.3)
[2020-03-05] MEDS ORDERED: DEXTROSE 5%-WATER 100 ML IVPB ONE ×2 (03:03→16:23)
[2020-03-05] MEDS ORDERED: MEROPENEM 500 MG VIAL (RESTRICTED TO ID) IVPB ONE ×2 (03:03→16:23)
[2020-03-05] MEDS: MEROPENEM 500 MG in DEXTROSE 5%-WATER 100 ML IVPB SCH ×2 (03:29→16:25)
[2020-03-05 06:24] LABS: ANISOCYTOSIS 1+; MACROCYTOSIS 0; PLATELET ESTIMATE NORMAL
[2020-03-05 07:35] LABS: BASO % 0.6 % (0-2.0); EOS % 4.2 % (0-4.5); HEMATOCRIT 28.8 % (35.4-49); LYMPH % 6.2 % (8-40); MCH 30.6 pg (25.7-33.7); MCHC 31.4 g/dl (32.0-35.9); MEAN CELL VOLUME 97.7 fl (80-96); MEAN PLT VOLUME 10.3 fl (7.5-11.1); MONO % 1.4 % (3.8-10.2); NEUT % 87.6 % (42.8-82.8); PLATELET COUNT 164 K/MM3 (134-434); RBC 2.95 M/mm3 (4.00-5.60); WHITE BLOOD COUNT 12.6 K/mm3 (4.0-10.0)
[2020-03-05 07:50] LABS: ALBUMIN 0.7 g/dl (3.4-5.0); BLOOD UREA NITROGEN 86.3 mg/dL (7-18); CALCIUM 8.8 mg/dL (8.5-10.1)
[2020-03-05 07:52] LABS: CREATININE 1.7 mg/dL (0.55-1.3)
[2020-03-05 07:53] LABS: PHOSPHOROUS 2.3 mg/dL (2.5-4.9)
[2020-03-05 07:54] LABS: BILIRUBIN,TOTAL 0.3 mg/dL (0.2-1)
[2020-03-05 07:56] LABS: TOT PROT 4.1 g/dl (6.4-8.2)
[2020-03-05] MEDS: LACTATED RINGERS SOLUTION 1,000 ML/1,000 ML INFUS.BAG IV SCH (08:14)
[2020-03-05] MEDS: PANTOPRAZOLE SODIUM 40 MG VIAL IVPUSH SCH (09:44)
[2020-03-05] MEDS: HYDROCORTISONE SOD SUCCINATE 100 MG/2 ML VIAL IVPB SCH ×2 (09:44→17:38)
[2020-03-05] MEDS: FLUDROCORTISONE ACETATE 0.1 MG TABLET (FP) PO SCH (09:45)
[2020-03-05] MEDS: MUPIROCIN 2% TOPICAL OINTMENT FOR DECOLONIZATION NS SCH ×2 (09:45→21:32)
[2020-03-05 10:13] LABS: ANISOCYTOSIS 1+; MACROCYTOSIS 1+; PLATELET ESTIMATE NORMAL; TOXIC GRANULATION 2+
[2020-03-05] MEDS: NOREPINEPHRINE D5W PREMIX 16,000 MCG/500 ML BAG IVPB SCH (15:45)
[2020-03-05] MEDS: VASOPRESSIN 40 UNITS in SODIUM CHLORIDE 98 ML IVPB SCH (15:45)
[2020-03-05] MEDS: CHLORHEXIDINE GLUCONATE 4% CLEANSER FOR DECOLONIZATION TP SCH (21:32)
[2020-03-06] MEDS: HYDROCORTISONE SOD SUCCINATE 100 MG/2 ML VIAL IVPB SCH ×3 (02:51→17:09)
[2020-03-06] MEDS: MEROPENEM 500 MG in DEXTROSE 5%-WATER 100 ML IVPB SCH ×2 (04:51→16:33)
[2020-03-06] MEDS ORDERED: DEXTROSE 5%-WATER 100 ML IVPB ONE ×2 (05:16→16:30)
[2020-03-06] MEDS ORDERED: MEROPENEM 500 MG VIAL (RESTRICTED TO ID) IVPB ONE ×2 (05:16→16:30)
[2020-03-06 07:12] LABS: HEMATOCRIT 30.4 % (35.4-49); HEMOGLOBIN 9.5 GM/dL (11.7-16.9); MCH 30.2 pg (25.7-33.7); MCHC 31.3 g/dl (32.0-35.9); MEAN CELL VOLUME 96.7 fl (80-96); MEAN PLT VOLUME 11.2 fl (7.5-11.1); PLATELET COUNT 120 K/MM3 (134-434); RBC 3.15 M/mm3 (4.00-5.60); RDW 19.7 % (11.9-15.9); WHITE BLOOD COUNT 11.8 K/mm3 (4.0-10.0)
[2020-03-06 07:38] LABS: POTASSIUM 3.6 mmol/L (3.5-5.1)
[2020-03-06 07:43] LABS: ALBUMIN 0.7 g/dl (3.4-5.0)
[2020-03-06 07:44] LABS: BLOOD UREA NITROGEN 76.8 mg/dL (7-18); CALCIUM 9.4 mg/dL (8.5-10.1)
[2020-03-06 07:47] LABS: CREATININE 1.2 mg/dL (0.55-1.3)
[2020-03-06 07:48] LABS: BILIRUBIN,TOTAL 0.5 mg/dL (0.2-1); TOT PROT 4.3 g/dl (6.4-8.2)
[2020-03-06] MEDS: PANTOPRAZOLE SODIUM 40 MG VIAL IVPUSH SCH (09:24)
[2020-03-06] MEDS: FLUDROCORTISONE ACETATE 0.1 MG TABLET (FP) PO SCH ×2 (09:24→09:59)
[2020-03-06] MEDS: MUPIROCIN 2% TOPICAL OINTMENT FOR DECOLONIZATION NS SCH ×2 (09:25→21:12)
[2020-03-06] MEDS: LACTATED RINGERS SOLUTION 1,000 ML/1,000 ML INFUS.BAG IV SCH (09:53)
[2020-03-06] MEDS: KCL 10 MEQ IVPB 10 MEQ/100 ML INFUS.BAG IVPB SCH ×2 (09:53→10:38)
[2020-03-06] MEDS ORDERED: ACETAMINOPHEN 1000 MG/100 ML VIAL (NON FORMULARY) IVPB ONE ×3 (10:00→10:15)
[2020-03-06] MEDS: morphine SULFATE 4 MG/ML VIAL IVPUSH PRN (10:10)
[2020-03-06] MEDS: NOREPINEPHRINE D5W PREMIX 16,000 MCG/500 ML BAG IVPB SCH ×2 (10:38→20:32)
[2020-03-06] MEDS: VASOPRESSIN 40 UNITS in SODIUM CHLORIDE 98 ML IVPB SCH ×2 (11:12→13:57)
[2020-03-06] MEDS: CHLORHEXIDINE GLUCONATE 4% CLEANSER FOR DECOLONIZATION TP SCH (21:13)
[2020-03-07] MEDS: HYDROCORTISONE SOD SUCCINATE 100 MG/2 ML VIAL IVPB SCH ×3 (02:00→17:41)
[2020-03-07] MEDS ORDERED: MEROPENEM 500 MG VIAL (RESTRICTED TO ID) IVPB ONE ×2 (02:58→13:25)
[2020-03-07] MEDS ORDERED: DEXTROSE 5%-WATER 100 ML IVPB ONE ×2 (02:59→13:25)
[2020-03-07] MEDS: LACTATED RINGERS SOLUTION 1,000 ML/1,000 ML INFUS.BAG IV SCH ×2 (04:03→08:38)
[2020-03-07] MEDS: MEROPENEM 500 MG in DEXTROSE 5%-WATER 100 ML IVPB SCH ×2 (04:03→15:35)
[2020-03-07 06:50] LABS: HEMATOCRIT 31.7 % (35.4-49); HEMOGLOBIN 9.8 GM/dL (11.7-16.9); MCH 29.9 pg (25.7-33.7); MCHC 30.8 g/dl (32.0-35.9); MEAN CELL VOLUME 97.1 fl (80-96); MEAN PLT VOLUME 11.2 fl (7.5-11.1); PLATELET COUNT 94 K/MM3 (134-434); RBC 3.26 M/mm3 (4.00-5.60); WHITE BLOOD COUNT 19.7 K/mm3 (4.0-10.0)
[2020-03-07 06:59] LABS: POTASSIUM 4.1 mmol/L (3.5-5.1)
[2020-03-07 07:02] LABS: CALCIUM 8.6 mg/dL (8.5-10.1)
[2020-03-07 07:03] LABS: ALBUMIN 0.7 g/dl (3.4-5.0); BLOOD UREA NITROGEN 74.8 mg/dL (7-18); MAGNESIUM 1.7 mg/dL (1.8-2.4)
[2020-03-07 07:07] LABS: BILIRUBIN,TOTAL 0.4 mg/dL (0.2-1)
[2020-03-07 07:08] LABS: TOT PROT 4.1 g/dl (6.4-8.2)
[2020-03-07 07:41] VITALS: BMI 19.3
[2020-03-07] MEDS: MUPIROCIN 2% TOPICAL OINTMENT FOR DECOLONIZATION NS SCH ×2 (10:04→21:03)
[2020-03-07] MEDS: NOREPINEPHRINE D5W PREMIX 16,000 MCG/500 ML BAG IVPB SCH (10:24)
[2020-03-07] MEDS: PANTOPRAZOLE SODIUM 40 MG VIAL IVPUSH SCH (10:24)
[2020-03-07] MEDS ORDERED: CEFTOLOZANE/TAZOBACTAM (ZERBAXA) 1.5 GM/11.4 ML VIAL IVPB SCH (13:30)
[2020-03-07] MEDS: VASOPRESSIN 40 UNITS in SODIUM CHLORIDE 98 ML IVPB SCH (15:23)
[2020-03-07] MEDS: CEFTOLOZANE/TAZOBACTAM 3 GM in DEXTROSE 5%-WATER - 100 ML IVPB SCH (18:05)
[2020-03-07] MEDS ORDERED: ACETAMINOPHEN INJECTION 100 ML IVPB ONE (20:05)
[2020-03-07] MEDS ORDERED: ACETAMINOPHEN 1000 MG/100 ML VIAL (NON FORMULARY) IVPB ONE ×2 (20:06→21:15)
[2020-03-07] MEDS: CHLORHEXIDINE GLUCONATE 4% CLEANSER FOR DECOLONIZATION TP SCH (21:03)
[2020-03-08] MEDS: CEFTOLOZANE/TAZOBACTAM 3 GM in DEXTROSE 5%-WATER - 100 ML IVPB SCH (01:30)
[2020-03-08] MEDS: HYDROCORTISONE SOD SUCCINATE 100 MG/2 ML VIAL IVPB SCH ×3 (02:43→17:06)
[2020-03-08] MEDS: MEROPENEM 500 MG in DEXTROSE 5%-WATER 100 ML IVPB SCH (05:15)
[2020-03-08] MEDS ORDERED: MEROPENEM 500 MG VIAL (RESTRICTED TO ID) IVPB ONE (05:20)
[2020-03-08] MEDS ORDERED: DEXTROSE 5%-WATER 100 ML IVPB ONE (05:20)
[2020-03-08 07:20] LABS: BASO % 0.4 % (0-2.0); HEMATOCRIT 32.1 % (35.4-49); HEMOGLOBIN 9.7 GM/dL (11.7-16.9); LYMPH % 11.3 % (8-40); MCH 30.5 pg (25.7-33.7); MCHC 30.1 g/dl (32.0-35.9); MEAN CELL VOLUME 101.2 fl (80-96); MEAN PLT VOLUME 11.3 fl (7.5-11.1); MONO % 0.6 % (3.8-10.2); NEUT % 87.7 % (42.8-82.8); PLATELET COUNT 83 K/MM3 (134-434); RBC 3.17 M/mm3 (4.00-5.60); RDW 20.7 % (11.9-15.9); WHITE BLOOD COUNT 19.6 K/mm3 (4.0-10.0)
[2020-03-08 07:27] LABS: POTASSIUM 4.2 mmol/L (3.5-5.1)
[2020-03-08 07:40] LABS: ALBUMIN 0.7 g/dl (3.4-5.0); MAGNESIUM 1.8 mg/dL (1.8-2.4)
[2020-03-08 07:43] LABS: BLOOD UREA NITROGEN 71.1 mg/dL (7-18); CREATININE 1.1 mg/dL (0.55-1.3); PHOSPHOROUS 5.3 mg/dL (2.5-4.9)
[2020-03-08 07:44] LABS: BILIRUBIN,TOTAL 0.5 mg/dL (0.2-1); TOT PROT 3.8 g/dl (6.4-8.2)
[2020-03-08] MEDS ORDERED: PT OWN MED DRAWER 7, Y5N ONE (09:11)
[2020-03-08] MEDS: morphine SULFATE 4 MG/ML VIAL IVPUSH PRN ×2 (09:24→17:06)
[2020-03-08] MEDS: PANTOPRAZOLE SODIUM 40 MG VIAL IVPUSH SCH (09:24)
[2020-03-08] MEDS: LACTATED RINGERS SOLUTION 1,000 ML/1,000 ML INFUS.BAG IV SCH (09:25)
[2020-03-08] MEDS: NOREPINEPHRINE D5W PREMIX 16,000 MCG/500 ML BAG IVPB SCH (09:25)
[2020-03-08] MEDS: MUPIROCIN 2% TOPICAL OINTMENT FOR DECOLONIZATION NS SCH ×2 (09:25→21:33)
[2020-03-08 10:55] LABS: ANISOCYTOSIS 1+; MACROCYTOSIS 1+; OVALOCYTE 1+; PLATELET ESTIMATE NORMAL
[2020-03-08] MEDS: CEFTAZIDIME/AVIBACTAM 1.25 GM in DEXTROSE 5%-WATER - 100 ML IVPB SCH ×3 (11:17→17:06)
[2020-03-08] MEDS: VASOPRESSIN 40 UNITS in SODIUM CHLORIDE 98 ML IVPB SCH (14:13)
[2020-03-08] MEDS: CHLORHEXIDINE GLUCONATE 4% CLEANSER FOR DECOLONIZATION TP SCH (21:33)
[2020-03-09] MEDS ORDERED: PT OWN MED DRAWER 7, Y5N ONE ×4 (02:17→17:24)
[2020-03-09] MEDS: HYDROCORTISONE SOD SUCCINATE 100 MG/2 ML VIAL IVPB SCH ×3 (02:25→17:34)
[2020-03-09] MEDS: CEFTAZIDIME/AVIBACTAM 1.25 GM in DEXTROSE 5%-WATER - 100 ML IVPB SCH ×3 (02:56→17:34)
[2020-03-09 06:50] LABS: BASO % 0.1 % (0-2.0); EOS % 0.4 % (0-4.5); HEMATOCRIT 31.7 % (35.4-49); HEMOGLOBIN 8.9 GM/dL (11.7-16.9); LYMPH % 8.1 % (8-40); MCH 30.3 pg (25.7-33.7); MEAN CELL VOLUME 108.2 fl (80-96); MEAN PLT VOLUME 12.5 fl (7.5-11.1); MONO % 0.6 % (3.8-10.2); NEUT % 90.8 % (42.8-82.8); PLATELET COUNT 70 K/MM3 (134-434); RBC 2.93 M/mm3 (4.00-5.60); RDW 21.4 % (11.9-15.9); WHITE BLOOD COUNT 24.2 K/mm3 (4.0-10.0)
[2020-03-09 07:03] LABS: POTASSIUM 4.8 mmol/L (3.5-5.1)
[2020-03-09 07:11] LABS: CALCIUM 7.8 mg/dL (8.5-10.1)
[2020-03-09 07:12] LABS: ALBUMIN 0.6 g/dl (3.4-5.0); BLOOD UREA NITROGEN 71.6 mg/dL (7-18); MAGNESIUM 1.8 mg/dL (1.8-2.4)
[2020-03-09 07:14] LABS: BILIRUBIN,TOTAL 0.3 mg/dL (0.2-1); TOT PROT 3.7 g/dl (6.4-8.2)
[2020-03-09 07:15] LABS: CREATININE 1.2 mg/dL (0.55-1.3)
[2020-03-09] MEDS ORDERED: LACTATED RINGERS SOLUTION 1000 ML INFUS.BAG IV ONE (07:36)
[2020-03-09] MEDS: LACTATED RINGERS SOLUTION 1,000 ML/1,000 ML INFUS.BAG IV SCH (07:47)
[2020-03-09] MEDS: PANTOPRAZOLE SODIUM 40 MG VIAL IVPUSH SCH (09:50)
[2020-03-09] MEDS: MUPIROCIN 2% TOPICAL OINTMENT FOR DECOLONIZATION NS SCH (09:50)
[2020-03-09 10:16] LABS: ANISOCYTOSIS 2+; MACROCYTOSIS 2+; PLATELET ESTIMATE DECREASED
[2020-03-09] MEDS: NOREPINEPHRINE D5W PREMIX 16,000 MCG/500 ML BAG IVPB SCH (16:34)
[2020-03-09] MEDS: VASOPRESSIN 40 UNITS in SODIUM CHLORIDE 98 ML IVPB SCH (16:34)
[2020-03-09] MEDS: CHLORHEXIDINE GLUCONATE 4% CLEANSER FOR DECOLONIZATION TP SCH (21:22)
[2020-03-10] MEDS ORDERED: ACETAMINOPHEN 1000 MG/100 ML VIAL (NON FORMULARY) IVPB ONE (01:07)
[2020-03-10] MEDS ORDERED: dilTIAZem HCL 50 MG/10 ML - 10 ML VIAL IVPUSH ONE (01:07)
[2020-03-10] MEDS: CEFTAZIDIME/AVIBACTAM 1.25 GM in DEXTROSE 5%-WATER - 100 ML IVPB SCH ×3 (01:55→17:11)
[2020-03-10] MEDS: HYDROCORTISONE SOD SUCCINATE 100 MG/2 ML VIAL IVPB SCH ×3 (02:10→17:11)
[2020-03-10] MEDS: LACTATED RINGERS SOLUTION 1,000 ML/1,000 ML INFUS.BAG IV SCH ×3 (06:05→17:10)
[2020-03-10] MEDS: VASOPRESSIN 40 UNITS in SODIUM CHLORIDE 98 ML IVPB SCH ×2 (06:08→14:10)
[2020-03-10] MEDS: NOREPINEPHRINE D5W PREMIX 16,000 MCG/500 ML BAG IVPB SCH ×3 (06:08→11:30)
[2020-03-10 06:54] LABS: BASO % 0.3 % (0-2.0); EOS % 0.1 % (0-4.5); HEMATOCRIT 26.9 % (35.4-49); HEMOGLOBIN 7.4 GM/dL (11.7-16.9); LYMPH % 7.5 % (8-40); MCH 29.7 pg (25.7-33.7); MCHC 27.5 g/dl (32.0-35.9); MEAN CELL VOLUME 108.2 fl (80-96); MEAN PLT VOLUME 12.6 fl (7.5-11.1); MONO % 0.3 % (3.8-10.2); NEUT % 91.8 % (42.8-82.8); PLATELET COUNT 47 K/MM3 (134-434); RBC 2.49 M/mm3 (4.00-5.60); WHITE BLOOD COUNT 27.5 K/mm3 (4.0-10.0)
[2020-03-10 07:26] LABS: POTASSIUM 4.1 mmol/L (3.5-5.1)
[2020-03-10 07:31] LABS: CALCIUM 7.5 mg/dL (8.5-10.1)
[2020-03-10 07:32] LABS: ALBUMIN 0.6 g/dl (3.4-5.0); MAGNESIUM 1.7 mg/dL (1.8-2.4)
[2020-03-10 07:35] LABS: CREATININE 1.2 mg/dL (0.55-1.3); PHOSPHOROUS 7.4 mg/dL (2.5-4.9)
[2020-03-10 07:36] LABS: BILIRUBIN,TOTAL 0.5 mg/dL (0.2-1); TOT PROT 3.2 g/dl (6.4-8.2)
[2020-03-10] MEDS: PANTOPRAZOLE SODIUM 40 MG VIAL IVPUSH SCH (09:46)
[2020-03-10 10:49] LABS: ANISOCYTOSIS 1+; MACROCYTOSIS 1+; OVALOCYTE 1+; PLATELET ESTIMATE DECREASED; TOXIC GRANULATION 1+
[2020-03-10] MEDS ORDERED: INSULIN (NOVOLOG) ASPART 100 UNITS/ML 10ML VIAL ONE (19:56)
[2020-03-10] MEDS ORDERED: NOREPINEPHRINE BITARTRATE 8,000 MCG/500 ML BAG IVPB ONE (21:09)
[2020-03-10] MEDS ORDERED: EPINEPHrine 1:10,000 (P-F SYR) 1 MG/10 ML DISP.SYRIN ONE (21:46)
[2020-03-11 02:17] VITALS: BP 53/17; PULSE 31; TEMP 95
== END 2020-03-10 23:11 | disposition expired | DRG 870 ==
LOC: JER 09:19 → JERBED 13:00 → JICU 15:53
PROVIDERS: ADMIT Family Medicine; ATTEND Family Medicine
PROC: 5A1955Z Respiratory Ventilation, Greater than 96 Consecutive Hours (ICD-10-PCS; principal; 2020-03-04)
PROC: 3E0G76Z Introduction of Nutritional Substance into Upper GI, Via Natural or Artificial Opening (ICD-10-PCS; 2020-03-04)
PROC: 30233N1 Transfusion of Nonautologous Red Blood Cells into Peripheral Vein, Percutaneous Approach (ICD-10-PCS; 2020-03-04)
PROC: 02HV33Z Insertion of Infusion Device into Superior Vena Cava, Percutaneous Approach (ICD-10-PCS; 2020-03-04)
DX: A41.9 Sepsis, unspecified organism (principal); J18.9 Pneumonia, unspecified organism; R53.2 Functional quadriplegia; R65.21 Severe sepsis with septic shock; J96.10 Chronic respiratory failure, unspecified whether with hypoxia or hypercapnia; Z99.11 Dependence on respirator [ventilator] status; E87.0 Hyperosmolality and hypernatremia; N39.0 Urinary tract infection, site not specified; R64 Cachexia; N17.9 Acute kidney failure, unspecified; E87.2 Acidosis; Z68.1 Body mass index [BMI] 19.9 or less, adult; F20.9 Schizophrenia, unspecified; G20 Parkinson's disease; Z93.0 Tracheostomy status; Z93.1 Gastrostomy status; D64.9 Anemia, unspecified; E86.0 Dehydration; K43.9 Ventral hernia without obstruction or gangrene; G80.9 Cerebral palsy, unspecified; F79 Unspecified intellectual disabilities; Z99.81 Dependence on supplemental oxygen; L89.150 Pressure ulcer of sacral region, unstageable; E88.09 Other disorders of plasma-protein metabolism, not elsewhere classified
CPT/HCPCS: 36415; 36430; 71045-TC-FY; 74176-TC; 80048; 80053; 81003; 82550; 82553; 82565; 82803; 82962; 83605; 83735; 83970; 84100; 84156; 84300; 84484; 84540; 85025; 85027; 85610; 85730; 86850; 86900; 86901; 86922; 87040; 87070; 87086; 87184; 87186; 87205; 87899; 93005; 93010; 94002; 99291; C9803; G0480; J0131; J0695; P9058; U0003